=== PATIENT | male | born 1945 | race Caucasian/White ===

== ENCOUNTER → 2018-03-04 13:22 | Outpatient (CLI) | payer MEDICARE, BC, SELFPAY ==
[2018-03-04 14:23] LABS: INR 2.6 (1.0-3.5); Prothrombin Time 24.7 sec (9.3-10.8)
[2018-03-04 14:24] LABS: Hemoglobin A1C 6.7 % (4.5-6.2)
[2018-03-04 14:27] LABS: COMMENT (LAB VIEW ONLY) 91.38 mg/dL; Microalb ug/mg Crea 24.4 ug/mg Cr
== END ==
PROVIDERS: PCP Family Medicine; Visit Provider Family Medicine
DX: E11.40 Type 2 diabetes mellitus with diabetic neuropathy, unspecified (principal); E11.9 Type 2 diabetes mellitus without complications; I10 Essential (primary) hypertension; I48.91 Unspecified atrial fibrillation; Z79.01 Long term (current) use of anticoagulants
CPT/HCPCS: 36415; 82043; 82570; 83036; 85610

== ENCOUNTER → 2018-03-07 10:34 | Outpatient (CLI) | payer MEDICARE, BC, SELFPAY ==
[2018-03-07 11:51] LABS: Abs Immature Grans 0.01 k/cumm (0.0-0.09); Absolute Basophil Count 0.02 k/cumm (0.0-0.2); Absolute Eosinophil Count 0.07 k/cumm (0.0-0.7); Absolute Lymphocyte Count 0.96 k/cumm (1.2-3.4); Absolute Monocyte Count 0.78 k/cumm (0.11-0.7); Absolute Neutrophil Count 5.08 k/cumm (1.2-6.7); Basophils % 0.3; HCT 36.1 % (40.0-50.0); HGB 10.8 g/dL (13.5-17.5); Immature Grans % 0.1; Lymphocytes % 13.9; Mean Corp. HGB Concentration 29.9 g/dL (32.0-36.0); Mean Corpuscular Hemoglobin 26.3 pg (27.0-33.0); Mean Corpuscular Volume 87.8 fL (80-95); Mean Platelet Volume 9.4 fL (8.0-11.0); Monocytes % 11.3; Neutrophils % 73.4; Platelet Count 240 x1000/uL (130-400); RBC 4.11 m/cumm (4.50-6.00); RBC Distribution Width 18.2 % (11.8-14.1); White Blood Cell Count 6.92 k/cumm (4.4-10.8)
[2018-03-07 12:27] LABS: Anisocytosis 2+; Diff Comment RBC Morph Reviewed; Hypochromasia 1+; Macrocytosis 1+; Microcytosis 1+; Poikilocytes 1+; Polychromasia Present
== END ==
PROVIDERS: PCP Family Medicine; Visit Provider Family Medicine
DX: L03.115 Cellulitis of right lower limb (principal); T14.8XXA Other injury of unspecified body region, initial encounter
CPT/HCPCS: 36415; 85025

== ENCOUNTER 2018-03-25 08:00 | Outpatient (RCR) | payer MEDICARE, BC, SELFPAY ==
--- NOTE | 2018-02-28 13:59 | PTTR_ITS ---
DATE: 02/28/18 SUBJECTIVE: Don states that he continues to be very stiff through his ankle. OBJECTIVE: Manual therapy: (73556z9). With patient in supine, performed stretching of the right ankle into PF, DF, inversion, and eversion. Performed talocrural joint mobilizations and subtalar joint mobilizations. Therapeutic procedures (43720s7). * [X] See flow sheet: Patient performed a LE strengthening program, as per flow sheet. Patient was able to tolerate a slight increase in his program today , modifications made to reps are noted on flow sheet. Vitals were taken pre and post completion of ther ex program. Patient completed the remainder of his ther ex program via [facility]. * [X] Provided skilled manual cues to facilitate proper muscle recruitment and/or movement pattern. Neuro Re-education: Patient performed static and dynamic standing balance retraining activities. Direct treatment time: 30 minutes Total treatment time: 45 minutes
--- NOTE | 2018-03-04 08:15 | PTTR_ITS ---
DATE: 03/04/18 SUBJECTIVE: Patient was sleeping in his car in the parking lot after he arrived for his appointment, so appointment started about 15 minutes late. Patient notes that he got up early this morning and got to the dept early so sat in his truck and just dozed off. He reports that he is feeling well. Sugars were monitored this morning and were good via patient report. OBJECTIVE: Observation: His right leg was red posterior and anterior calf upon arrival to clinic. Patient states he does not have a fever, does not feel sick at all, and does not have any pain in the right leg. The right leg is not warm to touch compared to left leg. The redness subsided in a supine position once elevated and the leg was just a little pink in posterior calf by the end of the session. Patient educated to keep monitoring leg and to call the wound clinic or go to ED if it gets red again in case of infection. Took vitals pre and post session which were not of concern. See flow sheet. Manual therapy: (23189i7). Performed right ankle DF, PF, inversion, and eversion stretching. Grade 2/3 posterior and anterior talocrural joint mobilizations and distraction. Calcaneal rock mobilizations. Soft tissue stretching of the gastrocnemius. Therapeutic procedures (30147r5). [X] HEP review: Patient instructed to continue performing ankle pumps, ankle circles, and calf stretches at home. [X] See flow sheet: Continued progressing LE strengthening program [X] Provided skilled instruction in proper exercise performance: for proper body mechanics [X] Provided skilled manual cues to facilitate proper muscle recruitment and/or movement pattern: Neuro Re-education - (62065 x1): See flow sheet. Continued progressing static and dynamic balance activities adding the air ex pad for feet together and modified tandem stance and added color douglas pads for weight shifting in single leg stance. Tolerated session well without complaints. Recommended that he continue to monitor the redness of the LE. Slightly concerned in regards to possible cellulitis. He is to call his doctor if this gets worse or get to the ED. Patient was in agreement with this. Direct treatment time: 45 minutes Total treatment time: 45 minutes
--- NOTE | 2018-03-07 08:00 | PTTR_ITS ---
DATE: 03/07/18 SUBJECTIVE: Indicated he is doing okay. Bumped the marie of his right LE on Wednesday creating dime sized skin tear. Denies drainage from this region or from foot incision region. Is seeing his physician tomorrow. Does not feel legs are any redder than they had been at last session. Questions whether the doctor is going to tell him to use compressive hose. OBJECTIVE: Manual therapy: (76242m4). Mobilization of right ankle consisting of grade 2 post / anterior talocrural jt mobs, distraction and calcaneal rock mobs. Soft tissue stretching of gastroc for 3 reps x 30 seconds each and AAROM into dorsiflexion, plantarflexion, inversion and eversion. Therapeutic procedures (13039j1). * x See flow sheet: Focus on strengthening of bilateral LEs and hip stabilizers. * x Provided skilled instruction in proper exercise performance * x Provided skilled manual cues to facilitate proper muscle recruitment and/ or movement pattern * x Neuro Re-education - (13004 x1): See flow sheet for balance and proprioceptive activities performed while in clinic today. Given stand by guard of one with each of these tasks due to occasional LOB, mainly with dynamic activities such as 8 inch stool taps and color pad weight shifts utilizing SLS. Direct treatment time: 50 minutes Total treatment time: 50 minutes
--- NOTE | 2018-03-10 08:00 | NT_ITS ---
03/10/18 No showed for today's appt. Phoned patient's home and was informed he must have forgotten. Was not home when called, spoke to patient's . Will attempt to reschedule for tomorrow. Luz Liriano, [employer]
--- NOTE | 2018-03-11 08:00 | PTTR_ITS ---
DATE: 03/11/18 SUBJECTIVE: Don states that he did see his physician and was instructed to wear compressive stockings to help with the welling. States his physician did look at the bruise in front orf his R marie, but did not advise him to keep this covered, other than with the compression garment. Manual therapy: (18019t5). Did receive mobilization of the R ankle consisting of grade 2 anterior/posterior tibial talocrural joint mobs, distraction and calcaneal rocking mobs, soft tissue stretching of gastroc was performed x3 reps, x30 sec each as well as AAROM into dorsiflexion, plantar flexion, in/eversion. Therapeutic procedures (04152j3). * x See flow sheet: focus was on strengthening of bilateral LE's and hip stabilizers. * x Provided skilled instruction in proper exercise performance: * x Provided skilled manual cues to facilitate proper muscle recruitment and/ or movement pattern: * His BP was monitored pre and post session today and were found to be slightly elevated following NuStep activity. This did decrease after 3 mins of rest in seated position. (see flow sheet for readings today) Neuro Re-education - (10421 x1): See flow sheet for balance and proprioceptive activities performed in clinic. Continued stand by guard of 1 was given with each of these tasks without any notable loss of balance noted today. Direct treatment time: 50 mins Total treatment time: 50 mins SG/dl
--- NOTE | 2018-03-14 08:00 | PTTR_ITS ---
DATE: March 14, 2018 SUBJECTIVE: Don reports that he is utilizing compression socks which is helping with his redness in his LE's. He feels that he is making small gains however was hoping that his balance would improve faster. OBJECTIVE: Manual therapy: (60555g4). Subtalar and talocrural joint mobilizations Gr II/ III. P/AAROM performed throughout all planes to the right ankle. Therapeutic procedures (89679d7). Vitals monitored pre and post therex. * X See flow sheet: Global LE strength and cardiovascular endurance per flow sheet. * X Provided skilled instruction in proper exercise performance: promoting proper body mechanics and postural awareness * X Provided skilled manual cues to facilitate proper muscle recruitment and/ or movement pattern: Neuro Re-education - (08296 x1):Proprioceptive and balance activities with use of Airex and eyes open/closed. Also incorporated wobble board. Direct treatment time: 45 minutes Total treatment time: 45 minutes
--- NOTE | 2018-03-18 08:00 | PTTR_ITS ---
DATE: March 18, 2018 SUBJECTIVE: Don reports that he overall is holding up well. He reports that his doctor would like him to hold on the knee flexion and extension machine due to the pressure it places on his shins. He has some small wounds that are healing in this area and they just don't want it to interfere with the healing. OBJECTIVE: Manual therapy: (20974e3).Subtalar and talocrural joint mobilization dorsal and volar glides Gr III to the right ankle. P/AAROM throughout all planes. Soft tissue stretching to the gastroc. and hamstring. Therapeutic procedures (00867l6). * X See flow sheet: Global LE strength and stabilization modified program to include SSH and LAQ without resistance per request of MD. * X Provided skilled instruction in proper exercise performance: promoting body mechanics and postural awareness with increased core activation. * X Provided skilled manual cues to facilitate proper muscle recruitment and/ or movement pattern: Neuro Re-education - (48572 x1):Proprioceptive and balance activities incorporated utilizing Airex pad eyes open and closed. Unilateral stance continues to improve on the right. Will continue to advance within symptom allowance. Progressing level of activity with use of small hurdles. Direct treatment time: 45 minutes Total treatment time: 45 minutes
--- NOTE | 2018-03-21 08:00 | PTTR_ITS ---
DATE: 03/21/18 SUBJECTIVE: Don indicates he continues to feel that he is making steady gains. He is noting improved balance, improved stamina and is overall happy with his progress thus far, wishes the swelling would continue to reduce. Has been compliant with his compression garment. Manual therapy: N/C. Subtalar, talocrural joint mobilization of the R ankle, P /AAROM performed throughout all planes including gastroc and soleus stretching. Therapeutic procedures (32737f6). Global LE strength and stabilization via open/ close chain strengthening and conditioning. * x Provided skilled instruction in proper exercise performance: * x Provided skilled manual cues to facilitate proper muscle recruitment and/ or movement pattern: Neuro Re-education - (96460 x1): Proprioceptive, balancing activities per flow sheet encouraging unilateral stance, tandem, eyes open/eyes closed on Airex , dynamic gait tasks, sidestepping over small manuel. Vitals obtained pre and post and recorded on flow sheet. Direct treatment time: 30 mins Total treatment time: 40 mins, 10 mins of wellness. KW/dl
--- NOTE | 2018-03-25 08:00 | PN_ITS ---
DATE: March 25, 2018 REFERRING: Dr Lovely Vicente REFERRING PROVIDER DIAGNOSIS:: s/p revascularization of the right LE, s/p transmetatarsal amputation PHYSICAL THERAPY DIAGNOSIS: s/p revascularization of the right LE, S/p transmetatarsal amputation REPORTING PERIOD (for progress note and discharge note only): 02/15/18-03/25/18 SUBJECTIVE: Don is a 72 year old male referred for PT evaluation and treatment with focus on gait training, increased strength and flexibility of the lower extremity s/p revascularization and amputation of the metatarsals on the right LE. Don overall feels that he has made great progress over the course of the last month. He feels he has more endurance functional. His gait is much more stable and continues to gain balance over time. He is going to return to work on the 04 of April. Standardized Measures: * Lower Extremity Functional Scale Score (LEFS): 22% perceived disability rating OBJECTIVE: Gait: Reassessment of 6 minute walk performed. Ambulated 355 meters without assistive device. Minimal to no antalgia however does continue to be limited in his ankle mobility compensating with knee and hip strategies. ROM: Demonstrates 0 degrees of DF. 25 degrees of PF, Inversion to 20 degrees, Eversion 5 degrees. Demonstrates WNL hip and knee ROM. Strength: Demonstrates grossly 4+-5/5 LE strength at this time. Balance: Unilateral stance left 7 seconds, right 10+ seconds. Tandem 10+ seconds , Feet together 10+ seconds, Foot in instep of other foot 10+ seconds Special Tests (indicate): Sit to stand 30 seconds : 12 repetitions in comparison to 9 at IE, TUG 8 seconds in comparison to 12 seconds at IE. Treatment: Subtalar and talocrural joint mobilization to the right LE. Gr II/ III. P/AAROM and soft tissue stretching to the gastroc and hamstring. Completed reassessment followed by LE strength and proprioceptive/balance activities. Direct one on one 30 minutes. Total treatment 60 minutes with 30 minutes of wellness portion of the program. ASSESSMENT: Don at this time is making great progress towards short and detention goals. Balance and gait continue to improve. He continues to require skilled PT services to promote full return to previous level of function, advance his gait and continue to improve his dynamic balance for improved functional endurance and decreased fall risk. Patient's primary functional limitation is in the category of: Mobility - walking and moving around : [id number]-[CJ] Projected goal: Mobility - walking and moving around: [id number]-[CJ] STG: __4__ weeks. 1. Patient will demonstrate 5 degree increase in right ankle AROM or better all motions. (MET) 2. Patient will perform TUG in 10 seconds or less with no AD.(MET) 3. Patient will ambulate on even surfaces independently for 800ft or greater. ( MET) 4. Patient will maintain SLS for 3 seconds or greater on right LE.(MET) 5. Independent HEP.(MET) LTG: __8__ weeks. 1. Patient will report pain no more than 1/10 in right foot.(MET) 2. Patient will demonstrate 4+/5 strength of better hip flexors and abductors ( MET) 3. Patient will ambulate community distances on even and uneven surfaces independently with no antalgia.(MET) 4. Patient will negotiate 12 stairs independently with reciprocal gait pattern with use of 1 railing. (MET) 5. Patient will score 13 or greater on 30 second chair stand test.(Progressing towards) 6. Patient will maintain SLS for 6 seconds or greater on right leg. (MET) 7. Patient will score 30% impaired or less on LEFS. (MET) PLAN: Don will continue 1-2 times per week with focus on global LE strength, cardiovascular endurance and proprioceptive/balance training. Will plan to progress to independent self management program in 4 weeks.
== END 2018-03-25 23:59 | disposition home or self-care (01) ==
LOC: PT 08:00
PROVIDERS: PCP Family Medicine; Referring Provider Family Medicine; Visit Provider Family Medicine
DX: R26.81 Unsteadiness on feet (principal); R29.898 Other symptoms and signs involving the musculoskeletal system; Z89.431 Acquired absence of right foot; Z95.820 Peripheral vascular angioplasty status with implants and grafts
CPT/HCPCS: 97110; 97112; 97140; G8978

== ENCOUNTER 2018-04-19 01:58 | Outpatient (CLI) | payer MEDICARE, BC, SELFPAY ==
[2018-04-19 11:18] LABS: INR 2.1 (1.0-3.5); Prothrombin Time 19.6 sec (9.3-10.8)
== END 2018-04-19 02:18 ==
PROVIDERS: PCP Family Medicine; Visit Provider Family Medicine
DX: I48.91 Unspecified atrial fibrillation (principal); Z79.01 Long term (current) use of anticoagulants
CPT/HCPCS: 36415; 85610

== ENCOUNTER 2018-05-07 00:17 | Outpatient (CLI) | payer MEDICARE, BC, SELFPAY ==
[2018-05-07 09:58] LABS: Prothrombin Time 19.5 sec (9.3-10.8)
[2018-05-10 19:32] LABS: Hemoglobin A1C 6.6 % (4.5-6.2)
== END 2018-05-07 00:37 ==
PROVIDERS: PCP Family Medicine; Visit Provider Family Medicine
DX: I48.91 Unspecified atrial fibrillation (principal); Z79.01 Long term (current) use of anticoagulants; E11.65 Type 2 diabetes mellitus with hyperglycemia
CPT/HCPCS: 36415; 83036; 85610

== ENCOUNTER 2018-06-03 08:06 | Outpatient (CLI) | payer MEDICARE, BC, SELFPAY ==
[2018-06-03 12:37] LABS: Hemoglobin A1C 6.8 % (4.5-6.2)
[2018-06-03 12:50] LABS: INR 1.9 (1.0-3.5); Prothrombin Time 17.8 sec (9.3-10.8)
[2018-06-03 13:17] LABS: ALT 32 U/L (12-78); AST 36 U/L (15-37); Albumin 3.1 g/dL (3.4-5.0); Alkaline Phosphatase 82 U/L (46-116); Anion Gap 10.3 mmol/L (3-11); BUN 23 mg/dL (7-18); Bilirubin, Total 0.6 mg/dL (0.2-1.0); CO2 28.7 mmol/L (21.0-32.0); Calcium 8.3 mg/dL (8.5-10.1); Chloride 102 mmol/L (98-107); Cholesterol 70 mg/dL (50-200); Estimated GFR 54.26 (mL/min/1.73m2); Glucose 98 mg/dL (70-100); HDL Cholesterol 32 mg/dL (40-60); LDL CHOLESTEROL 29 mg/dL (<100); Potassium 4.5 mmol/L (3.5-5.1); Sodium 141 mmol/L (136-145); Total Protein 6.5 g/dL (6.4-8.2); Triglyceride 103 mg/dL (30-150)
== END 2018-06-03 08:26 ==
PROVIDERS: PCP Family Medicine; Visit Provider Family Medicine
DX: E11.65 Type 2 diabetes mellitus with hyperglycemia (principal); I10 Essential (primary) hypertension; D64.9 Anemia, unspecified; E78.5 Hyperlipidemia, unspecified; I25.5 Ischemic cardiomyopathy; G62.9 Polyneuropathy, unspecified; Z79.01 Long term (current) use of anticoagulants
CPT/HCPCS: 36415; 80053; 80061; 83721; 83036; 85610

== ENCOUNTER 2018-07-01 02:27 | Outpatient (CLI) | payer MEDICARE, BC, SELFPAY ==
[2018-07-01 07:39] LABS: Ferritin 33 ng/mL (8-388)
== END 2018-07-01 02:47 ==
PROVIDERS: PCP Family Medicine; Visit Provider Nurse Practitioner
DX: M25.50 Pain in unspecified joint (principal); I48.91 Unspecified atrial fibrillation; Z79.01 Long term (current) use of anticoagulants
CPT/HCPCS: 36415; 82728; 85610

== ENCOUNTER 2018-08-01 01:41 | Outpatient (CLI) | payer MEDICARE, BC, SELFPAY ==
[2018-08-01 11:52] LABS: INR 1.4 (0.9-1.1); Prothrombin Time 13.8 sec (9.3-11.0)
== END 2018-08-01 02:01 ==
PROVIDERS: PCP Family Medicine; Visit Provider Family Medicine
DX: I25.5 Ischemic cardiomyopathy (principal); Z79.01 Long term (current) use of anticoagulants
CPT/HCPCS: 36415; 85610

== ENCOUNTER 2018-08-08 02:32 | Outpatient (CLI) | payer MEDICARE, BC, SELFPAY ==
[2018-08-08 10:54] LABS: INR 1.4 (0.9-1.1); Prothrombin Time 14.5 sec (9.3-11.0)
== END 2018-08-08 02:52 ==
PROVIDERS: PCP Family Medicine; Visit Provider Family Medicine
DX: I25.10 Atherosclerotic heart disease of native coronary artery without angina pectoris (principal); Z79.01 Long term (current) use of anticoagulants
CPT/HCPCS: 36415; 85610

== ENCOUNTER 2018-08-18 08:49 | Outpatient (CLI) | payer MEDICARE, BC, SELFPAY ==
[2018-08-18 11:56] LABS: Hemoglobin A1C 7.3 % (4.5-6.2)
[2018-08-18 12:05] LABS: ALT 27 U/L (12-78); AST 22 U/L (15-37); Albumin 3.4 g/dL (3.4-5.0); Alkaline Phosphatase 78 U/L (46-116); Anion Gap 7.5 mmol/L (3-11); BUN 23 mg/dL (7-18); Bilirubin, Total 0.7 mg/dL (0.2-1.0); CO2 32.5 mmol/L (21.0-32.0); CREATININE 1.22 mg/dL (0.70-1.30); Calcium 8.6 mg/dL (8.5-10.1); Chloride 104 mmol/L (98-107); Cholesterol 79 mg/dL (50-200); Estimated GFR 58.39 (mL/min/1.73m2); Glucose 146 mg/dL (70-100); HDL Cholesterol 35 mg/dL (40-60); LDL CHOLESTEROL 27 mg/dL (<100); Magnesium 1.7 mg/dL (1.8-2.4); Potassium 4.3 mmol/L (3.5-5.1); Sodium 144 mmol/L (136-145); TSH (W/Ref FT4) 1.08 uIU/mL (0.358-3.74); Triglyceride 170 mg/dL (30-150)
== END 2018-08-18 09:09 ==
PROVIDERS: PCP Family Medicine; Visit Provider Family Medicine
DX: E89.0 Postprocedural hypothyroidism (principal); I10 Essential (primary) hypertension; I25.5 Ischemic cardiomyopathy; E11.9 Type 2 diabetes mellitus without complications
CPT/HCPCS: 36415; 80053; 80061; 83721; 83036; 83735; 84443

== ENCOUNTER 2018-08-29 02:19 | Outpatient (CLI) | payer MEDICARE, BC, SELFPAY ==
[2018-08-29 11:23] LABS: INR 1.9 (0.9-1.1); Prothrombin Time 19.2 sec (9.3-11.0)
== END 2018-08-29 02:39 ==
PROVIDERS: PCP Family Medicine; Visit Provider Family Medicine
DX: I25.5 Ischemic cardiomyopathy (principal); Z79.01 Long term (current) use of anticoagulants
CPT/HCPCS: 36415; 85610

== ENCOUNTER 2018-09-14 01:25 | Outpatient (CLI) | payer MEDICARE, BC, SELFPAY ==
[2018-09-14 11:16] LABS: INR 1.6 (0.9-1.1); Prothrombin Time 16.4 sec (9.3-11.0)
== END 2018-09-14 01:45 ==
PROVIDERS: PCP Family Medicine; Visit Provider Family Medicine
DX: I25.10 Atherosclerotic heart disease of native coronary artery without angina pectoris (principal); Z79.01 Long term (current) use of anticoagulants
CPT/HCPCS: 36415; 85610

== ENCOUNTER 2018-09-19 15:50 | Outpatient (CLI) | payer MEDICARE, BC, SELFPAY ==
[2018-09-19 16:32] LABS: INR 1.9 (0.9-1.1); Prothrombin Time 19.1 sec (9.3-11.0)
== END 2018-09-19 16:10 ==
PROVIDERS: PCP Family Medicine; Visit Provider Family Medicine
DX: I48.91 Unspecified atrial fibrillation (principal); Z79.01 Long term (current) use of anticoagulants
CPT/HCPCS: 36415; 85610

== ENCOUNTER 2018-09-27 01:30 | Outpatient (CLI) | payer MEDICARE, BC, SELFPAY ==
[2018-09-27 08:08] LABS: INR 2.3 (0.9-1.1); Prothrombin Time 23.5 sec (9.3-11.0)
[2018-09-27 08:21] LABS: Hemoglobin A1C 7.4 % (4.5-6.2)
== END 2018-09-27 01:50 ==
PROVIDERS: PCP Family Medicine; Visit Provider Family Medicine
DX: I48.91 Unspecified atrial fibrillation (principal); Z79.01 Long term (current) use of anticoagulants; E11.9 Type 2 diabetes mellitus without complications
CPT/HCPCS: 36415; 83036; 85610

== ENCOUNTER 2018-10-11 02:00 | Outpatient (CLI) | payer MEDICARE, BC, SELFPAY ==
[2018-10-11 07:44] LABS: INR 2.1 (0.9-1.1); Prothrombin Time 21.4 sec (9.3-11.0)
== END 2018-10-11 02:20 ==
PROVIDERS: PCP Family Medicine; Visit Provider Family Medicine
DX: I48.91 Unspecified atrial fibrillation (principal); Z79.01 Long term (current) use of anticoagulants
CPT/HCPCS: 36415; 85610

== ENCOUNTER 2018-11-02 01:07 | Outpatient (CLI) | payer MEDICARE, BC, SELFPAY ==
[2018-11-02 10:36] LABS: INR 1.8 (0.9-1.1); Prothrombin Time 18.5 sec (9.3-11.0)
== END 2018-11-02 01:27 ==
PROVIDERS: PCP Family Medicine; Visit Provider Family Medicine
DX: I48.91 Unspecified atrial fibrillation (principal); Z79.01 Long term (current) use of anticoagulants
CPT/HCPCS: 36415; 85610

== ENCOUNTER 2018-11-21 14:39 | Outpatient (CLI) | payer MEDICARE, BC, SELFPAY ==
[2018-11-21 15:13] LABS: Prothrombin Time 19.9 sec (9.3-11.0)
== END 2018-11-21 14:59 ==
PROVIDERS: PCP Family Medicine; Visit Provider Family Medicine
DX: I48.91 Unspecified atrial fibrillation (principal); Z79.01 Long term (current) use of anticoagulants
CPT/HCPCS: 36415; 85610

== ENCOUNTER 2018-12-08 02:16 | Outpatient (CLI) | payer MEDICARE, BC, SELFPAY | END 2018-12-08 02:36 | PROVIDERS: PCP Family Medicine; Visit Provider Family Medicine | DX: E11.9 Type 2 diabetes mellitus without complications (principal) | CPT/HCPCS: 36415; 83036 ==

== ENCOUNTER 2018-12-20 01:44 | Outpatient (CLI) | payer MEDICARE, BC, SELFPAY ==
[2018-12-20 11:09] LABS: Hemoglobin A1C 6.7 % (4.5-6.2)
[2018-12-20 11:14] LABS: Iron 64 ug/dL (50-175)
[2018-12-20 11:26] LABS: INR 1.8 (0.9-1.1); Prothrombin Time 17.8 sec (9.3-11.0)
[2018-12-20 11:36] LABS: Ferritin 42 ng/mL (8-388)
== END 2018-12-20 02:04 ==
PROVIDERS: PCP Family Medicine; Visit Provider Family Medicine
DX: E11.9 Type 2 diabetes mellitus without complications (principal); G25.81 Restless legs syndrome; Z79.01 Long term (current) use of anticoagulants; I48.91 Unspecified atrial fibrillation
CPT/HCPCS: 36415; 82728; 83036; 83540; 85610

== ENCOUNTER 2019-01-03 01:46 | Outpatient (CLI) | payer MEDICARE, BC, SELFPAY ==
[2019-01-03 07:46] LABS: INR 2.7 (0.9-1.1); Prothrombin Time 27.5 sec (9.3-11.0)
== END 2019-01-03 02:06 ==
PROVIDERS: PCP Family Medicine; Visit Provider Family Medicine
DX: I48.91 Unspecified atrial fibrillation (principal); Z79.01 Long term (current) use of anticoagulants
CPT/HCPCS: 36415; 85610

== ENCOUNTER 2019-01-30 01:40 | Outpatient (CLI) | payer MEDICARE, BC, SELFPAY ==
[2019-01-30 07:54] LABS: INR 1.8 (0.9-1.1); Prothrombin Time 18.4 sec (9.3-11.0)
== END 2019-01-30 02:00 ==
PROVIDERS: PCP Family Medicine; Visit Provider Family Medicine
DX: I48.91 Unspecified atrial fibrillation (principal); Z79.01 Long term (current) use of anticoagulants
CPT/HCPCS: 36415; 85610

== ENCOUNTER 2019-02-06 08:51 | Outpatient (CLI) | payer MEDICARE, BC, SELFPAY ==
[2019-02-06 09:36] LABS: Prothrombin Time 19.6 sec (9.3-11.0)
[2019-02-06 09:37] LABS: INR 1.9 (0.9-1.1)
== END 2019-02-06 09:11 ==
PROVIDERS: PCP Family Medicine; Visit Provider Family Medicine
DX: I48.91 Unspecified atrial fibrillation (principal); Z79.01 Long term (current) use of anticoagulants
CPT/HCPCS: 36415; 85610

== ENCOUNTER 2019-02-13 01:47 | Outpatient (CLI) | payer MEDICARE, BC, SELFPAY ==
[2019-02-13 08:12] LABS: INR 3.1 (0.9-1.1); Prothrombin Time 31.1 sec (9.3-11.0)
[2019-02-13 10:10] LABS: Ferritin 40 ng/mL (8-388)
== END 2019-02-13 02:07 ==
PROVIDERS: Nurse Practitioner; PCP Family Medicine; Visit Provider Family Medicine
DX: I48.91 Unspecified atrial fibrillation (principal); Z79.01 Long term (current) use of anticoagulants; M25.50 Pain in unspecified joint
CPT/HCPCS: 36415; 82728; 85610

== ENCOUNTER 2019-02-20 01:11 | Outpatient (CLI) | payer MEDICARE, BC, SELFPAY ==
[2019-02-20 10:55] LABS: Prothrombin Time 29.8 sec (9.3-11.0)
[2019-02-20 10:57] LABS: INR 2.9 (0.9-1.1)
== END 2019-02-20 01:31 ==
PROVIDERS: PCP Family Medicine; Visit Provider Family Medicine
DX: I48.91 Unspecified atrial fibrillation (principal); Z79.01 Long term (current) use of anticoagulants
CPT/HCPCS: 36415; 85610

== ENCOUNTER 2019-03-06 01:18 | Outpatient (CLI) | payer MEDICARE, BC, SELFPAY ==
[2019-03-06 07:36] LABS: INR 2.2 (0.9-1.1); Prothrombin Time 21.8 sec (9.3-11.0)
== END 2019-03-06 01:38 ==
PROVIDERS: PCP Family Medicine; Visit Provider Family Medicine
DX: I48.91 Unspecified atrial fibrillation (principal); Z79.01 Long term (current) use of anticoagulants
CPT/HCPCS: 36415; 85610

== ENCOUNTER 2019-03-31 03:49 | Outpatient (CLI) | payer MEDICARE, BC, SELFPAY ==
[2019-03-31 11:09] LABS: INR 2.3 (0.9-1.1); Prothrombin Time 22.9 sec (9.3-11.0)
[2019-03-31 15:02] LABS: Hemoglobin A1C 6.8 % (4.5-6.2)
== END 2019-03-31 04:09 ==
PROVIDERS: PCP Family Medicine; Visit Provider Family Medicine
DX: E11.9 Type 2 diabetes mellitus without complications (principal); I48.91 Unspecified atrial fibrillation; Z79.01 Long term (current) use of anticoagulants
CPT/HCPCS: 36415; 83036; 85610

== ENCOUNTER 2019-04-17 01:04 | Outpatient (CLI) | payer MEDICARE, BC, SELFPAY ==
[2019-04-17 12:17] LABS: INR 1.1 (0.9-1.1); Prothrombin Time 11.2 sec (9.3-11.0)
== END 2019-04-17 01:24 ==
LOC: LBO 01:04 → LOS 12:35
PROVIDERS: PCP Family Medicine; Visit Provider Family Medicine
DX: I48.91 Unspecified atrial fibrillation (principal); Z79.01 Long term (current) use of anticoagulants
CPT/HCPCS: 36415; 85610

== ENCOUNTER 2019-04-20 02:23 | Outpatient (CLI) | payer MEDICARE, BC, SELFPAY ==
[2019-04-20 07:56] LABS: INR 1.1 (0.9-1.1); Prothrombin Time 11.3 sec (9.3-11.0)
== END 2019-04-20 02:43 ==
PROVIDERS: PCP Family Medicine; Visit Provider Family Medicine
DX: I48.91 Unspecified atrial fibrillation (principal); Z79.01 Long term (current) use of anticoagulants
CPT/HCPCS: 36415; 85610

== ENCOUNTER 2019-04-24 02:34 | Outpatient (CLI) | payer MEDICARE, BC, SELFPAY ==
[2019-04-24 11:10] LABS: INR 2.1 (0.9-1.1); Prothrombin Time 20.6 sec (9.3-11.0)
== END 2019-04-24 02:54 ==
PROVIDERS: PCP Family Medicine; Visit Provider Family Medicine
DX: I48.91 Unspecified atrial fibrillation (principal); Z79.01 Long term (current) use of anticoagulants
CPT/HCPCS: 36415; 85610

== ENCOUNTER 2019-05-01 02:39 | Outpatient (CLI) | payer MEDICARE, BC, SELFPAY ==
[2019-05-01 08:11] LABS: INR 2.7 (0.9-1.1); Prothrombin Time 26.9 sec (9.3-11.0)
[2019-05-01 09:06] LABS: Hemoglobin A1C 6.8 % (4.5-6.2)
== END 2019-05-01 02:59 ==
PROVIDERS: PCP Family Medicine; Visit Provider Family Medicine
DX: E11.9 Type 2 diabetes mellitus without complications (principal); I48.91 Unspecified atrial fibrillation; Z79.01 Long term (current) use of anticoagulants
CPT/HCPCS: 36415; 83036; 85610

== ENCOUNTER 2019-05-08 05:42 | Outpatient (CLI) | payer MEDICARE, BC, SELFPAY ==
[2019-05-08 11:27] LABS: INR 3.1 (0.9-1.1); Prothrombin Time 30.5 sec (9.3-11.0)
== END 2019-05-08 06:02 ==
PROVIDERS: PCP Family Medicine; Visit Provider Family Medicine
DX: I48.91 Unspecified atrial fibrillation (principal); Z79.01 Long term (current) use of anticoagulants
CPT/HCPCS: 36415; 85610

== ENCOUNTER 2019-05-15 02:13 | Outpatient (CLI) | payer MEDICARE, BC, SELFPAY ==
[2019-05-15 11:09] LABS: INR 2.3 (0.9-1.1); Prothrombin Time 22.2 sec (9.3-11.0)
== END 2019-05-15 02:33 ==
PROVIDERS: PCP Family Medicine; Visit Provider Family Medicine
DX: I48.91 Unspecified atrial fibrillation (principal); Z79.01 Long term (current) use of anticoagulants
CPT/HCPCS: 36415; 85610

== ENCOUNTER 2019-05-29 01:44 | Outpatient (CLI) | payer MEDICARE, BC, SELFPAY ==
[2019-05-29 11:31] LABS: INR 1.9 (0.9-1.1); Prothrombin Time 19.1 sec (9.3-11.0)
== END 2019-05-29 02:04 ==
PROVIDERS: PCP Family Medicine; Visit Provider Family Medicine
DX: I48.91 Unspecified atrial fibrillation (principal); Z79.01 Long term (current) use of anticoagulants
CPT/HCPCS: 36415; 85610

== ENCOUNTER 2019-06-12 02:07 | Outpatient (CLI) | payer MEDICARE, BC, SELFPAY ==
[2019-06-12 12:21] LABS: INR 1.8 (0.9-1.1); Prothrombin Time 17.8 sec (9.3-11.0)
== END 2019-06-12 02:27 ==
PROVIDERS: PCP Family Medicine; Visit Provider Family Medicine
DX: I48.91 Unspecified atrial fibrillation (principal); Z79.01 Long term (current) use of anticoagulants
CPT/HCPCS: 36415; 85610

== ENCOUNTER 2019-06-19 03:16 | Outpatient (CLI) | payer MEDICARE, BC, SELFPAY ==
[2019-06-19 13:36] LABS: INR 2.1 (0.9-1.1); Prothrombin Time 20.3 sec (9.3-11.0)
== END 2019-06-19 03:36 ==
PROVIDERS: PCP Family Medicine; Visit Provider Family Medicine
DX: I48.91 Unspecified atrial fibrillation (principal); Z79.01 Long term (current) use of anticoagulants
CPT/HCPCS: 36415; 85610

== ENCOUNTER 2019-07-03 00:17 | Outpatient (CLI) | payer MEDICARE, BC, SELFPAY ==
[2019-07-03 11:40] LABS: Hemoglobin A1C 6.9 % (4.5-6.2)
[2019-07-03 12:32] LABS: INR 2.2 (0.9-1.1); Prothrombin Time 21.4 sec (9.3-11.0)
== END 2019-07-03 00:37 ==
PROVIDERS: PCP Family Medicine; Visit Provider Family Medicine
DX: E11.9 Type 2 diabetes mellitus without complications (principal); I48.91 Unspecified atrial fibrillation; Z79.01 Long term (current) use of anticoagulants
CPT/HCPCS: 36415; 83036; 85610

== ENCOUNTER 2019-07-07 00:49 | Outpatient (CLI) | payer MEDICARE, BC, SELFPAY ==
--- NOTE | 2019-07-25 08:31 | ZIOP_ITS ---
Date of service: 07/25/19 Time of Service: 08:31 ZIO Patch Bite Block Maker Note: This is a 2-week ZIO patch ordered for the indication of palpitations. ?Patient had a minimum heart rate of 21 bpm and a maximum heart rate of 174 bpm. ?The predominant underlying rhythm was sinus rhythm with intermittent bundle branch block. ?There were 4 episodes of ventricular tachycardia with the longest lasting 5 beats. ?There were 12 episodes of supraventricular tachycardia with the longest lasting 14 beats. ?There were 2 episodes of type II second-degree AV block with the longest lasting 10 seconds. ?There were rare isolated supraventricular ectopic beats ?There were occasional isolated ventricular ectopic beats. ?There were no episodes of atrial fibrillation or pauses greater than 3 seconds.
== END 2019-07-07 01:09 ==
PROVIDERS: PCP Family Medicine; Visit Provider Family Medicine
DX: R00.2 Palpitations (principal); I47.2 Ventricular tachycardia; I47.1 Supraventricular tachycardia; I44.1 Atrioventricular block, second degree
CPT/HCPCS: 0296T

== ENCOUNTER 2019-07-25 08:31 | Outpatient (CLI) | payer MEDICARE, BC, SELFPAY | END 2019-07-25 08:51 | PROVIDERS: PCP Family Medicine; Referring Provider Family Medicine; Visit Provider Internal Medicine Cardiovascular Disease | DX: R00.2 Palpitations (principal); I47.2 Ventricular tachycardia; I47.1 Supraventricular tachycardia; I44.1 Atrioventricular block, second degree | CPT/HCPCS: 0298T ==

== ENCOUNTER 2019-07-31 03:07 | Outpatient (CLI) | payer MEDICARE, BC, SELFPAY ==
[2019-07-31 10:59] LABS: INR 2.6 (0.9-1.1); Prothrombin Time 25.7 sec (9.3-11.0)
== END 2019-07-31 03:27 ==
PROVIDERS: PCP Family Medicine; Visit Provider Family Medicine
DX: I48.91 Unspecified atrial fibrillation (principal); Z79.01 Long term (current) use of anticoagulants
CPT/HCPCS: 36415; 83036; 85610

== ENCOUNTER 2019-08-11 14:40 | Outpatient (CLI) | payer MEDICARE, BC, SELFPAY ==
[2019-08-12 16:52] LABS: Campylobacter PCR Negative (Negative); Salmonella PCR Negative (Negative); Shiga Toxin PCR Negative (Negative); Shigella/Enteroinvasive Ecoli Negative (Negative)
== END 2019-08-11 15:00 ==
LOC: LBO 14:42 → LBN 15:13
PROVIDERS: PCP Family Medicine; Visit Provider Family Medicine
DX: R19.7 Diarrhea, unspecified (principal)
CPT/HCPCS: 87329; 87505; 87324

== ENCOUNTER 2019-08-14 05:35 | Outpatient (CLI) | payer MEDICARE, BC, SELFPAY ==
[2019-08-14 12:15] LABS: INR 2.2 (0.9-1.1)
== END 2019-08-14 05:55 ==
PROVIDERS: PCP Family Medicine; Visit Provider Family Medicine
DX: I48.91 Unspecified atrial fibrillation (principal); Z79.01 Long term (current) use of anticoagulants
CPT/HCPCS: 36415; 85610

== ENCOUNTER 2019-09-11 03:34 | Outpatient (CLI) | payer MEDICARE, BC, SELFPAY ==
[2019-09-11 10:59] LABS: Prothrombin Time 20.1 sec (9.3-11.0)
== END 2019-09-11 03:54 ==
PROVIDERS: PCP Family Medicine; Visit Provider Family Medicine
DX: I48.91 Unspecified atrial fibrillation (principal); Z79.01 Long term (current) use of anticoagulants
CPT/HCPCS: 36415; 85610

== ENCOUNTER 2019-09-28 06:17 | Outpatient (CLI) | payer MEDICARE, BC, SELFPAY ==
[2019-09-28 08:24] LABS: INR 2.2 (0.9-1.1); Prothrombin Time 21.3 sec (9.3-11.0)
[2019-09-28 08:58] LABS: Hemoglobin A1C 7.4 % (3.8-5.6)
== END 2019-09-28 06:37 ==
PROVIDERS: PCP Family Medicine; Visit Provider Family Medicine
DX: E11.9 Type 2 diabetes mellitus without complications (principal); I48.91 Unspecified atrial fibrillation; Z79.01 Long term (current) use of anticoagulants
CPT/HCPCS: 36415; 83036; 85610

== ENCOUNTER 2019-12-21 03:36 | Outpatient (CLI) | payer MEDICARE, BC, SELFPAY ==
[2019-12-21 08:52] LABS: ALT 28 U/L (16-63); AST 15 U/L (15-37); Albumin 3.4 g/dL (3.4-5.0); Alkaline Phosphatase 80 U/L (46-116); Anion Gap 3.5 mmol/L (3-11); BUN 27 mg/dL (7-18); Bilirubin, Total 0.6 mg/dL (0.2-1.0); CO2 30.5 mmol/L (21.0-32.0); CREATININE 1.35 mg/dL (0.70-1.30); Calcium 8.5 mg/dL (8.5-10.1); Calculated LDL 9 mg/dL (<100); Chloride 105 mmol/L (98-107); Cholesterol 81 mg/dL (<200); Estimated GFR 51.81 (mL/min/1.73m2); Glucose 177 mg/dL (74-106); HDL Cholesterol 29 mg/dL (40-60); Potassium 4.7 mmol/L (3.5-5.1); Sodium 139 mmol/L (136-145); TSH (W/Ref FT4) 1.28 uIU/mL (0.36-3.74); Total Protein 6.9 g/dL (6.4-8.2); Triglyceride 215 mg/dL (<150)
[2019-12-21 09:06] LABS: HCT 39.5 % (40.0-50.0); HGB 13.3 g/dL (13.5-17.5); Mean Corp. HGB Concentration 33.7 g/dL (32.0-36.0); Mean Corpuscular Hemoglobin 30.1 pg (27.0-33.0); Mean Corpuscular Volume 89.4 fL (80-95); Mean Platelet Volume 9.2 fL (8.0-11.0); Platelet Count 213 x1000/uL (130-400); RBC 4.42 m/cumm (4.50-6.00); RBC Distribution Width 14.8 % (11.8-14.1); White Blood Cell Count 5.75 k/cumm (4.4-10.8)
[2019-12-21 09:08] LABS: Prothrombin Time 21.2 sec (9.3-11.0)
[2019-12-21 09:11] LABS: INR 2.1 (0.9-1.1)
[2019-12-21 09:15] LABS: COMMENT (LAB VIEW ONLY) 114.38 mg/dL; Microalb ug/mg Crea 30.7 ug/mg Cr
[2019-12-21 09:17] LABS: Iron 50 ug/dL (65-175)
[2019-12-21 19:05] LABS: Hemoglobin A1C 7.1 % (3.8-5.6)
== END 2019-12-21 03:56 ==
PROVIDERS: PCP Family Medicine; Visit Provider Family Medicine
DX: D64.9 Anemia, unspecified (principal); E11.9 Type 2 diabetes mellitus without complications; E89.0 Postprocedural hypothyroidism; I48.91 Unspecified atrial fibrillation; Z79.01 Long term (current) use of anticoagulants
CPT/HCPCS: 36415; 80053; 80061; 85027; 82043; 82570; 83036; 83540; 84443; 85610

== ENCOUNTER 2020-01-01 04:27 | Outpatient (CLI) | payer MEDICARE, BC, SELFPAY ==
[2020-01-02 10:51] LABS: PSA, Screening 2.1 ng/mL (0.0-6.5)
== END 2020-01-01 04:47 ==
PROVIDERS: PCP Family Medicine; Visit Provider Urology
DX: N40.0 Benign prostatic hyperplasia without lower urinary tract symptoms (principal); Z12.5 Encounter for screening for malignant neoplasm of prostate
CPT/HCPCS: 36415; 84153; 83036; 85610

== ENCOUNTER 2020-01-19 01:35 | Outpatient (CLI) | payer MEDICARE, BC, SELFPAY ==
[2020-01-19 13:23] LABS: INR 2.3 (0.9-1.1); Prothrombin Time 22.7 sec (9.3-11.0)
== END 2020-01-19 01:55 ==
PROVIDERS: PCP Family Medicine; Visit Provider Family Medicine
DX: I48.91 Unspecified atrial fibrillation (principal); Z79.01 Long term (current) use of anticoagulants
CPT/HCPCS: 36415; 85610

== ENCOUNTER 2020-02-15 01:42 | Outpatient (CLI) | payer MEDICARE, BC, SELFPAY ==
[2020-02-15 07:50] LABS: INR 2.3 (0.9-1.1); Prothrombin Time 22.9 sec (9.3-11.0)
== END 2020-02-15 02:02 ==
PROVIDERS: PCP Family Medicine; Visit Provider Family Medicine
DX: Z79.01 Long term (current) use of anticoagulants (principal); I48.91 Unspecified atrial fibrillation
CPT/HCPCS: 36415; 85610

== ENCOUNTER 2020-03-08 04:41 | Outpatient (CLI) | payer MEDICARE, BC, SELFPAY ==
[2020-03-08 08:23] LABS: INR 2.3 (0.9-1.1); Prothrombin Time 22.6 sec (9.3-11.0)
== END 2020-03-08 05:01 ==
PROVIDERS: PCP Family Medicine; Visit Provider Family Medicine
DX: I48.91 Unspecified atrial fibrillation (principal); Z79.01 Long term (current) use of anticoagulants
CPT/HCPCS: 36415; 85610

== ENCOUNTER 2020-04-04 03:08 | Outpatient (CLI) | payer MEDICARE, BC, SELFPAY ==
[2020-04-04 09:50] LABS: INR 1.7 (0.9-1.1); Prothrombin Time 16.7 sec (9.3-11.0)
[2020-04-04 10:16] LABS: Ferritin 62 ng/mL (26-388)
== END 2020-04-04 03:28 ==
PROVIDERS: Nurse Practitioner; PCP Family Medicine; Visit Provider Family Medicine
DX: I48.91 Unspecified atrial fibrillation (principal); Z79.01 Long term (current) use of anticoagulants; M25.569 Pain in unspecified knee
CPT/HCPCS: 36415; 82728; 85610

== ENCOUNTER 2020-04-11 04:14 | Outpatient (CLI) | payer MEDICARE, BC, SELFPAY ==
[2020-04-11 08:47] LABS: INR 1.8 (0.9-1.1)
== END 2020-04-11 04:34 ==
PROVIDERS: PCP Family Medicine; Visit Provider Family Medicine
DX: I48.91 Unspecified atrial fibrillation (principal); Z79.01 Long term (current) use of anticoagulants
CPT/HCPCS: 36415; 85610

== ENCOUNTER 2020-04-18 04:40 | Outpatient (CLI) | payer MEDICARE, BC, SELFPAY ==
[2020-04-18 07:45] LABS: INR 1.7 (0.9-1.1); Prothrombin Time 16.6 sec (9.3-11.0)
[2020-04-18 08:15] LABS: Hemoglobin A1C 7.1 % (<5.7)
[2020-04-18 08:35] LABS: ALT 27 U/L (16-63); AST 16 U/L (15-37); Albumin 3.6 g/dL (3.4-5.0); Alkaline Phosphatase 90 U/L (46-116); BUN 28 mg/dL (7-18); Bilirubin, Total 0.6 mg/dL (0.2-1.0); CREATININE 1.36 mg/dL (0.70-1.30); Calcium 8.9 mg/dL (8.5-10.1); Chloride 103 mmol/L (98-107); Estimated GFR 51.22 (mL/min/1.73m2); Glucose 217 mg/dL (74-106); Potassium 4.7 mmol/L (3.5-5.1); Sodium 140 mmol/L (136-145); Total Protein 6.8 g/dL (6.4-8.2)
== END 2020-04-18 05:00 ==
PROVIDERS: PCP Family Medicine; Visit Provider Family Medicine
DX: E11.65 Type 2 diabetes mellitus with hyperglycemia (principal); I10 Essential (primary) hypertension; I48.91 Unspecified atrial fibrillation; Z79.01 Long term (current) use of anticoagulants
CPT/HCPCS: 36415; 80053; 83036; 85610

== ENCOUNTER 2020-04-25 05:04 | Outpatient (CLI) | payer MEDICARE, BC, SELFPAY ==
[2020-04-25 07:30] LABS: INR 2.1 (0.9-1.1); Prothrombin Time 21.1 sec (9.3-11.0)
== END 2020-04-25 05:24 ==
PROVIDERS: PCP Family Medicine; Visit Provider Family Medicine
DX: I48.91 Unspecified atrial fibrillation (principal); Z79.01 Long term (current) use of anticoagulants
CPT/HCPCS: 36415; 85610

== ENCOUNTER 2020-05-23 02:24 | Outpatient (CLI) | payer MEDICARE, BC, SELFPAY ==
[2020-05-23 10:00] LABS: INR 2.2 (0.9-1.1); Prothrombin Time 22.1 sec (9.3-11.0)
== END 2020-05-23 02:44 ==
PROVIDERS: PCP Family Medicine; Visit Provider Family Medicine
DX: I48.91 Unspecified atrial fibrillation (principal); Z79.01 Long term (current) use of anticoagulants
CPT/HCPCS: 36415; 85610

== ENCOUNTER 2020-06-11 04:13 | Outpatient (CLI) | payer MEDICARE, BC, SELFPAY ==
[2020-06-14 21:19] LABS: Patient Race White; SARS-CoV-2 RNA Undetected (Undetected); SARS-CoV-2 Specimen Source Nasal
== END 2020-06-11 04:33 ==
PROVIDERS: PCP Family Medicine; Visit Provider Family Medicine
DX: Z11.59 Encounter for screening for other viral diseases (principal)
CPT/HCPCS: U0003

== ENCOUNTER 2020-06-19 02:23 | Outpatient (CLI) | payer MEDICARE, BC, SELFPAY ==
[2020-06-19 07:45] LABS: INR 1.6 (0.9-1.1); Prothrombin Time 15.8 sec (9.3-11.0)
== END 2020-06-19 02:43 ==
PROVIDERS: PCP Family Medicine; Visit Provider Family Medicine
DX: I48.91 Unspecified atrial fibrillation (principal); Z79.01 Long term (current) use of anticoagulants
CPT/HCPCS: 36415; 80053; 80061; 83036; 85610

== ENCOUNTER 2020-06-28 01:29 | Outpatient (CLI) | payer MEDICARE, BC, SELFPAY ==
[2020-06-28 12:37] LABS: Prothrombin Time 21.2 sec (9.3-11.0)
[2020-06-28 12:51] LABS: INR 2.1 (0.9-1.1)
== END 2020-06-28 01:49 ==
PROVIDERS: PCP Family Medicine; Visit Provider Family Medicine
DX: I48.91 Unspecified atrial fibrillation (principal); Z79.01 Long term (current) use of anticoagulants
CPT/HCPCS: 36415; 85610

== ENCOUNTER 2020-07-08 03:34 | Outpatient (CLI) | payer MEDICARE, BC, SELFPAY ==
[2020-07-08 08:07] LABS: INR 2.2 (0.9-1.1); Prothrombin Time 22.1 sec (9.3-11.0)
[2020-07-08 08:14] LABS: Hemoglobin A1C 7.4 % (<5.7)
[2020-07-08 09:03] LABS: ALT 29 U/L (16-63); AST 18 U/L (15-37); Albumin 3.7 g/dL (3.4-5.0); Alkaline Phosphatase 66 U/L (46-116); Anion Gap 6.2 mmol/L (3-11); BUN 22 mg/dL (7-18); Bilirubin, Total 0.7 mg/dL (0.2-1.0); CO2 31.8 mmol/L (21.0-32.0); CREATININE 1.24 mg/dL (0.70-1.30); Calcium 8.3 mg/dL (8.5-10.1); Calculated LDL 36 mg/dL (<100); Chloride 105 mmol/L (98-107); Cholesterol 101 mg/dL (<200); Estimated GFR 56.99 (mL/min/1.73m2); Glucose 173 mg/dL (74-106); HDL Cholesterol 31 mg/dL (40-60); Sodium 143 mmol/L (136-145); Total Protein 6.8 g/dL (6.4-8.2); Triglyceride 174 mg/dL (<150)
== END 2020-07-08 03:54 ==
PROVIDERS: PCP Family Medicine; Visit Provider Family Medicine
DX: E11.65 Type 2 diabetes mellitus with hyperglycemia (principal); I48.91 Unspecified atrial fibrillation; Z79.01 Long term (current) use of anticoagulants
CPT/HCPCS: 36415; 80053; 80061; 83036; 85610

== ENCOUNTER 2020-08-05 02:34 | Outpatient (CLI) | payer MEDICARE, BC, SELFPAY ==
[2020-08-05 07:35] LABS: INR 1.9 (0.9-1.1); Prothrombin Time 19.1 sec (9.3-11.0)
== END 2020-08-05 02:54 ==
PROVIDERS: PCP Family Medicine; Visit Provider Family Medicine
DX: I48.91 Unspecified atrial fibrillation (principal); Z79.01 Long term (current) use of anticoagulants
CPT/HCPCS: 36415; 85610

== ENCOUNTER 2020-08-08 10:02 | Outpatient (CLI) | payer MEDICARE, BC, SELFPAY ==
--- NOTE | 2020-08-08 09:15 | DI.RAD_ITS ---
EXAM: XR HAND LT COMPLETE CLINICAL HISTORY: L hand pain TECHNIQUE: COMPARISON: CR LEFT MIDDLE FINGER from 12/25/2008 FINDINGS: Three views were obtained. There is narrowing of the cartilaginous joint spaces of the IP joints and to a lesser degree the joints of carpus. Mild hypertrophic marginal osteophyte formation noted at m ultiple sites involving IP joints and carpus. Findings as described are consistent with degenerative changes. No additional significant findings IMPRESSION: RADIATION DOSE DELIVERED: Total DLP
== END 2020-08-08 10:22 ==
PROVIDERS: PCP Family Medicine; Referring Provider Family Medicine; Visit Provider Physician Assistant
DX: M19.042 Primary osteoarthritis, left hand (principal); G56.02 Carpal tunnel syndrome, left upper limb; E11.59 Type 2 diabetes mellitus with other circulatory complications
CPT/HCPCS: 99214; 99215; 73130

== ENCOUNTER → 2020-08-15 13:57 | Outpatient (BNVA) | payer MEDICARE, BC, SELFPAY | PROVIDERS: PCP Family Medicine; Referring Provider Student in an Organized Health Care Education/Training Program; Visit Provider Nurse Practitioner Adult Health | DX: G56.02 Carpal tunnel syndrome, left upper limb (principal); E11.42 Type 2 diabetes mellitus with diabetic polyneuropathy; I10 Essential (primary) hypertension | CPT/HCPCS: 95909; 99203; 99215; G2212 ==

== ENCOUNTER 2020-09-02 03:22 | Outpatient (CLI) | payer MEDICARE, BC, SELFPAY ==
[2020-09-02 07:54] LABS: INR 2.3 (0.9-1.1); Prothrombin Time 22.9 sec (9.3-11.0)
== END 2020-09-02 03:23 | disposition home or self-care (01) ==
LOC: LBO 03:22
PROVIDERS: PCP Family Medicine; Visit Provider Family Medicine
DX: I48.91 Unspecified atrial fibrillation (principal); Z79.01 Long term (current) use of anticoagulants
CPT/HCPCS: 36415; 85610

== ENCOUNTER 2020-09-30 04:15 | Outpatient (CLI) | payer MEDICARE, BC, SELFPAY ==
[2020-09-30 07:34] LABS: INR 1.7 (0.9-1.1); Prothrombin Time 17.2 sec (9.3-11.0)
== END 2020-09-30 04:16 | disposition home or self-care (01) ==
PROVIDERS: PCP Family Medicine; Visit Provider Family Medicine
DX: I25.10 Atherosclerotic heart disease of native coronary artery without angina pectoris (principal); Z79.01 Long term (current) use of anticoagulants
CPT/HCPCS: 36415; 85610

== ENCOUNTER → 2020-10-03 09:10 | Outpatient (BNVA) | payer MEDICARE, BC, SELFPAY | PROVIDERS: PCP Family Medicine; Referring Provider Family Medicine; Visit Provider Student in an Organized Health Care Education/Training Program | DX: M19.042 Primary osteoarthritis, left hand (principal); G56.02 Carpal tunnel syndrome, left upper limb | CPT/HCPCS: 99213 ==

== ENCOUNTER 2020-10-07 03:20 | Outpatient (CLI) | payer MEDICARE, BC, SELFPAY ==
[2020-10-07 12:44] LABS: INR 1.9 (0.9-1.1); Prothrombin Time 18.4 sec (9.3-11.0)
== END 2020-10-07 03:21 | disposition home or self-care (01) ==
LOC: LBO 03:20
PROVIDERS: PCP Family Medicine; Visit Provider Family Medicine
DX: I48.91 Unspecified atrial fibrillation (principal); I25.10 Atherosclerotic heart disease of native coronary artery without angina pectoris; Z79.01 Long term (current) use of anticoagulants
CPT/HCPCS: 36415; 85610

== ENCOUNTER 2020-10-25 02:05 | Outpatient (CLI) | payer MEDICARE, BC, SELFPAY ==
[2020-10-25 07:52] LABS: Hemoglobin A1C 7.5 % (<5.7); INR 1.9 (0.9-1.1); Prothrombin Time 18.8 sec (9.3-11.0)
== END 2020-10-25 02:06 | disposition home or self-care (01) ==
LOC: LBO 02:05
PROVIDERS: PCP Family Medicine; Visit Provider Family Medicine
DX: E11.9 Type 2 diabetes mellitus without complications (principal); I48.91 Unspecified atrial fibrillation; Z79.01 Long term (current) use of anticoagulants
CPT/HCPCS: 36415; 83036; 85610

== ENCOUNTER 2020-11-22 02:25 | Outpatient (CLI) | payer MEDICARE, BC, SELFPAY ==
[2020-11-22 07:33] LABS: INR 1.8 (0.9-1.1); Prothrombin Time 17.7 sec (9.3-11.0)
== END 2020-11-22 02:26 | disposition home or self-care (01) ==
LOC: LBO 02:25
PROVIDERS: PCP Family Medicine; Visit Provider Family Medicine
DX: E11.9 Type 2 diabetes mellitus without complications (principal); I25.10 Atherosclerotic heart disease of native coronary artery without angina pectoris; Z79.01 Long term (current) use of anticoagulants
CPT/HCPCS: 36415; 83036; 85610

== ENCOUNTER 2020-12-20 02:15 | Outpatient (CLI) | payer MEDICARE, BC, SELFPAY ==
[2020-12-20 07:39] LABS: INR 1.7 (0.9-1.1); Prothrombin Time 16.6 sec (9.3-11.0)
== END 2020-12-20 02:16 | disposition home or self-care (01) ==
LOC: LBO 02:16
PROVIDERS: PCP Family Medicine; Visit Provider Family Medicine
DX: I48.91 Unspecified atrial fibrillation (principal); Z79.01 Long term (current) use of anticoagulants
CPT/HCPCS: 36415; 85610

== ENCOUNTER 2020-12-27 01:09 | Outpatient (CLI) | payer MEDICARE, BC, SELFPAY ==
[2020-12-27 08:40] LABS: INR 2.5 (0.9-1.1); Prothrombin Time 24.7 sec (9.3-11.0)
== END 2020-12-27 01:10 | disposition home or self-care (01) ==
LOC: LBO 01:09
PROVIDERS: PCP Family Medicine; Visit Provider Family Medicine
DX: I48.91 Unspecified atrial fibrillation (principal); Z79.01 Long term (current) use of anticoagulants
CPT/HCPCS: 36415; 85610

== ENCOUNTER 2021-01-03 03:53 | Outpatient (CLI) | payer MEDICARE, BC, SELFPAY ==
[2021-01-03 07:43] LABS: INR 1.6 (0.9-1.1); Prothrombin Time 16.4 sec (9.3-11.0)
== END 2021-01-03 03:54 | disposition home or self-care (01) ==
PROVIDERS: PCP Family Medicine; Visit Provider Family Medicine
DX: I48.91 Unspecified atrial fibrillation (principal); Z79.01 Long term (current) use of anticoagulants
CPT/HCPCS: 36415; 85610

== ENCOUNTER 2021-01-17 02:38 | Outpatient (CLI) | payer MEDICARE, BC, SELFPAY ==
[2021-01-17 08:14] LABS: INR 2.8 (0.9-1.1); Prothrombin Time 27.4 sec (9.3-11.0)
[2021-01-17 17:49] LABS: PSA, Screening 2.9 ng/mL (0.0-6.5)
== END 2021-01-17 02:39 | disposition home or self-care (01) ==
LOC: LBO 02:38
PROVIDERS: Urology; PCP Family Medicine; Visit Provider Family Medicine
DX: Z12.5 Encounter for screening for malignant neoplasm of prostate (principal); Z79.01 Long term (current) use of anticoagulants; I48.91 Unspecified atrial fibrillation
CPT/HCPCS: 36415; 84153; 85610

== ENCOUNTER 2021-01-31 01:53 | Outpatient (CLI) | payer MEDICARE, BC, SELFPAY ==
[2021-01-31 07:50] LABS: INR 2.7 (0.9-1.1); Prothrombin Time 26.8 sec (9.3-11.0)
== END 2021-01-31 01:54 | disposition home or self-care (01) ==
LOC: LBO 01:53
PROVIDERS: PCP Family Medicine; Visit Provider Family Medicine
DX: I48.91 Unspecified atrial fibrillation (principal); Z79.01 Long term (current) use of anticoagulants
CPT/HCPCS: 36415; 85610

== ENCOUNTER 2021-03-03 08:07 | Outpatient (CLI) | payer MEDICARE, BC, SELFPAY ==
[2021-03-03 12:18] LABS: Prothrombin Time 29.3 sec (9.3-11.0)
== END 2021-03-03 08:08 | disposition home or self-care (01) ==
LOC: LBO 08:08
PROVIDERS: PCP Family Medicine; Visit Provider Family Medicine
DX: I48.91 Unspecified atrial fibrillation (principal); Z79.01 Long term (current) use of anticoagulants
CPT/HCPCS: 36415; 85610

== ENCOUNTER 2021-03-10 03:16 | Outpatient (CLI) | payer MEDICARE, BC, SELFPAY ==
[2021-03-10 07:39] LABS: INR 3.3 (0.9-1.1); Prothrombin Time 31.9 sec (9.3-11.0)
== END 2021-03-10 03:17 | disposition home or self-care (01) ==
LOC: LBO 03:16
PROVIDERS: PCP Family Medicine; Visit Provider Family Medicine
DX: I48.91 Unspecified atrial fibrillation (principal); Z79.01 Long term (current) use of anticoagulants
CPT/HCPCS: 36415; 85610

== ENCOUNTER 2021-03-17 02:52 | Outpatient (CLI) | payer MEDICARE, BC, SELFPAY ==
[2021-03-17 07:39] LABS: INR 1.5 (0.9-1.1)
[2021-03-17 07:52] LABS: Hemoglobin A1C 7.8 % (<5.7)
[2021-03-17 08:26] LABS: COMMENT (LAB VIEW ONLY) 70.11 mg/dL; Microalb ug/mg Crea 48.2 ug/mg Cr
== END 2021-03-17 02:53 | disposition home or self-care (01) ==
LOC: LBO 02:52
PROVIDERS: PCP Family Medicine; Visit Provider Family Medicine
DX: E11.9 Type 2 diabetes mellitus without complications (principal); I48.91 Unspecified atrial fibrillation; Z79.01 Long term (current) use of anticoagulants
CPT/HCPCS: 36415; 82043; 82570; 83036; 85610

== ENCOUNTER 2021-03-20 13:02 | Emergency (ER) | payer MEDICARE, BC, SELFPAY ==
[2021-03-20] VITALS (29 sets, daily range): BP systolic 154–200; BP diastolic 61–90; PULSE 65–84; RESP 14–29; TEMP 36.5; O2SAT 93–99
--- NOTE | 2021-03-20 13:00 | RT.EKG_ITS ---
APPROVED REPORT Exam: Resting ECG Reason for Exam: dizzy and weak Patient Location: E HR:70 bpm ECG Measurements Heart Rate 70 AXIS IL 186 P 41 QRSd 107 QRS -57 QT 402 T 123 QTc 434 Conclusion Sinus rhythm...normal P axis, V-rate 60- 99 Ventricular premature complex...V complex w/ short R-R interval Inferior infarct, old...Q >35mS, II III aVF Anterolateral infarct, age indeterminate...Q >35mS, flat/neg T, V3-V6,I,aVL. Sinus. PVCs. No STEMI. I have reviewed and interpreted ECG and agree with software generated interpretation.
--- NOTE | 2021-03-20 13:15 | DI.CT_ITS ---
Exam(s) CT BRAIN NECK CTA EXAM: CT BRAIN NECK CTA CLINICAL HISTORY: dizziness, blurry vision, r/o acute cva. TECHNIQUE: Imaging Protocol: Axial CT angiography was performed with multi-slice acquisition and mu lti-planar and/or 3D reconstructions. CONTRAST MATERIAL: Intravenous: Omnipaque 350 Contrast volume:structured data in ml COMPARISON: CT HEAD WITHOUT CONTRAST from 08/03/2017 CT HEAD WITHOUT CONTRAST from 08/03/2017 CT PELVIC/LOWER ABD WITH CON(P) from 08/03/2017 FINDINGS: CTA Neck W: Aortic arch anatomy: The aortic arch anatomy is conventional. Sternotomy wires noted. Anterior circulation: Both common carotid arteries ascend with normal luminal diameters. There is no stenosis at their sorin gins. Distally there is mild calcified plaque on the posterior wall of the right carotid bifurcation proximal right internal carotid artery but with less than 10 percent stenosis at this level. Just a samuel this level there is additional calcified plaque on the medial wall of the proximal right ICA, ap proximately 20 percent stenosis. Above this level the right ICA in the neck is nicely patent and not tortuous. The left common carotid artery ascends with normal luminal diameter. There is both calcified and non calcified plaque in left carotid bifurcation and proximal left internal carotid artery. Approximatel y 20 percent stenosis. Some calcification along the medial wall is seen in the left ICA slightly abo ve this with approximately 10-15 percent stenosis. Above this level the left internal carotid artery is patent and non tortuous in the upper neck. Posterior circulation: Both vertebral arteries arising conventional fashion off of the subclavian arteries with no evidence of significant stenosis at their origins nor stenosis in the subclavian arteries proximal to the vert ebral artery takeoff points. Left vertebral artery is dominant and ascends with a patent luminal diameter of 5 millimeters. The r ight vertebral artery is slightly smaller diameter and also patent. At the skull base both vertebral arteries contribute to the formation of the basilar artery. The right vertebral artery at the skull base becomes a thinner vessel. CTA Brain W: Anterior circulation: Both internal carotid arteries are patent in the skull base-carotid canals. They are peripherally ca lcified within the cavernous sinuses but otherwise patent. Both psoas supraclinoid aspects of the in ternal carotid arteries are patent. Both middle cerebral arteries are demonstrated be patent at the out to and including the sylvian fissure branches. Left A1 segment is patent. Right A1 segment appe ars occluded approximately 5 millimeters proximal to the anterior communicating artery. The anterior cerebral arteries are patent. There is no evidence of aneurysm at the level of the anterior communi cating artery Posterior circulation: Basilar artery ascends in the midline with 3.3 millimeter luminal diameter and no evidence of intralu dulce maria thrombus nor dissection. Distally basilar artery gives off thin bilateral superior cerebellar arteries and above this level terminates as patent bilateral posterior cerebral arteries. There is n o evidence of aneurysm of the tip of the basilar artery. CT BRAIN: There is no evidence of intracranial hemorrhage, mass effect, or shift of midline structures. There are no extra-axial fluid collections. Ventricles are not enlarged or shifted and there is no blood w ithin the ventricular system nor within the basal cisterns. There are no ring enhancing lesions in t he brain and no abnormal meningeal enhancement. Subtle periventricular white matter hypodensity is unchanged from the prior study of July 2017. IMPRESSION: 1. 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 The left A1 segment is patent . 2. No abnormality the posterior circulation evident. 3. Some plaque is noted at the level the carotid bifurcations and proximal internal carotid arteri es in the neck but less than 20 percent stenosis. This is a combination of calcified and noncalcifie d plaque. RADIATION DOSE DELIVERED: 3,250.27mGy.cm Total DLP DATA REPOSITORY: All CT scans at this facility are submitted to the National Radiology Data Registry (NRDR) Dose Index Registry (DIR) with the [employer] ([employer]). RADIATION OPTIMIZATION: All CT scans at this facility use at least one of these dose optimization te chniques: automated exposure control; mA and/or kV adjustment per patient size (includes targeted exa ms where dose is matched to clinical indication); or iterative reconstruction.
--- NOTE | 2021-03-20 13:15 | DI.RAD_ITS ---
Exam(s) XR CHEST 2V PA LATERAL EXAM: XR CHEST 2V PA LATERAL CLINICAL HISTORY: dizziness, r/o acute disease. TECHNIQUE: 2D digital imaging was performed. COMPARISON: CR PORTABLE AP CHEST, POST LINE from 10/01/2017 FINDINGS: Cardiomegaly and sternotomy wires. Mediastinum is not widened Mild pulmonary venous hypertension pattern but no airspace pulmonary edema. No pleural effusions. N o Luz Maria B lines IMPRESSION: Sternotomy. Mild cardiomegaly. Pulmonary venous hypertension pattern. DATA REPOSITORY: RADIATION DOSE DELIVERED:
--- NOTE | 2021-03-20 13:26 | ED.GENADUL_ITS ---
Discharge Plan Disposition Patient Disposition: HOME Condition: Stable Discharge Details Clinical Impression: Dizziness Primary Care Provider: Lovely Vicente ED Provider: Chrystal Arredondo Home Meds and New Rx's Prescriptions: Continued ferrous sulfate 325 mg (65 mg iron) tablet 325 mg PO DAILY RF: 0 warfarin 2.5 mg tablet See Rx Instructions mg PO QPM Qty: 600 RF: 11 Lantus Solostar U-100 Insulin 100 unit/mL (3 mL) insulin pen 30 unit subcut DAILY Qty: 25 RF: 4 lisinopril 10 mg tablet 10 mg PO DAILY Qty: 90 RF: 12 turmeric root extract 500 mg capsule 500 mg PO BID RF: 0 atorvastatin 10 mg tablet 10 mg PO .COMPLEX Qty: 90 RF: 4 clobetasol 0.05 % solution 1 applic Topical DAILY PRN (Reason: rash) Qty: 50 RF: 5 levothyroxine 175 mcg tablet 175 mcg PO DAILY Qty: 90 RF: 12 metformin 850 mg tablet 850 mg PO BID Qty: 180 RF: 4 metoprolol succinate 25 mg tablet extended release 24 hr 25 mg PO DAILY Qty: 90 RF: 5 (DME) blood-glucose meter 1 EACH misc 1 ea Miscellaneous PRN Qty: 1 RF: 0 (DME) lancets [BD Ultra Fine Lancets] 1 EACH misc 1 ea Sub-Q AC & HS Qty: 400 RF: 6 acetaminophen 650 MG tablet 2 tab PO BID PRN RF: 0 (DME) pen needle, diabetic [Pen Needle] 31 gauge x 5/16 needle 1 ea Miscellaneous ac and hs Qty: 400 RF: 3 (DME) Blood Glucose Test Strip 1 ea Miscellaneous AC & HS Qty: 400 RF: 12 furosemide 20 mg tablet 20 mg PO DAILY Qty: 90 RF: 6 insulin lispro [Humalog KwikPen Insulin] 100 unit/mL insulin pen 25 unit subcut AC Qty: 30 RF: 4 magnesium oxide 500 mg capsule 500 mg PO DAILY Qty: 180 RF: 0 ascorbic acid (vitamin C) [Vitamin C] 500 mg tablet 500 mg PO DAILY RF: 0 Discharge Instructions Instructions: Dizziness (ED) Additional Instructions: Your CT scan of your brain today noted an occlusion (blockage in a blood vessel) in an artery in your brain. This is likely a chronic finding as the MRI of your brain today did not note any evidence of an acute stroke. Drink plenty of fluids and get plenty of rest. Start taking an 81 mg aspirin once daily. Call your primary care doctor tomorrow to schedule a follow-up appointment for reevaluation within the next week and for referral to neurology or ENT if your dizziness continues. Return immediately to the emergency department if you develop any worsening or new concerning symptoms. Discharge Data Discharge Date/Time-TO BE ENTERED AT DEPARTURE: 03/20/21 18:45 Discharge Physician: Chrystal Arredondo Medical Decision Making 76-year-old male with a history of depression, GERD, hypertension, hyperlipidemia, atrial fibrillation on Coumadin, STEMI, diabetes, CABG presents for dizziness and blurry vision this morning. EKG notes rate of 70, sinus, PVCs, no STEMI and nondiagnostic. He has no focal deficits on exam. He has minimal shaking of extremities throughout and slight shaking noted in his voice. Differential diagnosis includes acute CVA, arrhythmia, electrolyte abnormality, UTI, dehydration. Will place an IV, screening labs, CTA head and neck, chest x- ray and give fluids and reassess. Labs and imaging reviewed. White blood cell count 7. INR 2. Magnesium 1.6, will replete. Troponin negative. TSH within normal limits. Urinalysis negative for infection. CTA head and neck notes occlusion in the right A1 segment of the brain. Dr. Hidalgo recommends MRI/MRA brain. Chest x-ray negative. MRI/MRA brain negative for acute findings. Will contact [facility] neurology for recommendations. Discussed with [facility] neurology who reviewed the CT and MR imaging and there is no evidence of acute stroke and the A1 segment occlusion is likely chronic and incidental finding as it does not correlate with his symptoms today. He is recommending starting an 81 mg aspirin and follow-up with his PCP for reevaluation. Patient reassessed and he states he feels much better and is requesting to go home. Patient was able to ambulate and denies any dizziness. Patient was given his results and reports and advised to follow-up with his PCP for reevaluation and for referral to neurology. Advised to follow up with the primary care doctor for re-evaluation. Usual and customary return precautions given prior to discharge. Medical Records Medical records reviewed: Yes I reviewed the patient's medical records. Imaging Data Radiologic Study: Radiologist's impression: CT BRAIN NECK CTA CLINICAL HISTORY: dizziness, blurry vision, r/o acute cva. TECHNIQUE: Imaging Protocol: Axial CT angiography was performed with multi- slice acquisition and multi-planar and/or 3D reconstructions. CONTRAST MATERIAL: Intravenous: Omnipaque 350 Contrast volume:structured data in ml COMPARISON: CT HEAD WITHOUT CONTRAST from 08/03/2017 CT HEAD WITHOUT CONTRAST from 08/03/2017 CT PELVIC/LOWER ABD WITH CON(P) from 08/03/2017 FINDINGS: CTA Neck W: Aortic arch anatomy: The aortic arch anatomy is conventional. Sternotomy wires noted. Anterior circulation: Both common carotid arteries ascend with normal luminal diameters. There is no stenosis at their origins. Distally there is mild calcified plaque on the posterior wall of the right carotid bifurcation proximal right internal carotid artery but with less than 10 percent stenosis at this level. Just above this level there is additional calcified plaque on the medial wall of the proximal right ICA, approximately 20 percent stenosis. Above this level the right ICA in the neck is nicely patent and not tortuous. The left common carotid artery ascends with normal luminal diameter. There is both calcified and noncalcified plaque in left carotid bifurcation and proximal left internal carotid artery. Approximately 20 percent stenosis. Some calcification along the medial wall is seen in the left ICA slightly above this with approximately 10-15 percent stenosis. Above this level the left internal carotid artery is patent and non tortuous in the upper neck. Posterior circulation: Both vertebral arteries arising conventional fashion off of the subclavian arteries with no evidence of significant stenosis at their origins nor stenosis in the subclavian arteries proximal to the vertebral artery takeoff points. Left vertebral artery is dominant and ascends with a patent luminal diameter of 5 millimeters. The right vertebral artery is slightly smaller diameter and also patent. At the skull base both vertebral arteries contribute to the formation of the basilar artery. The right vertebral artery at the skull base becomes a thinner vessel. CTA Brain W: Anterior circulation: Both internal carotid arteries are patent in the skull base-carotid canals. They are peripherally calcified within the cavernous sinuses but otherwise patent. Both psoas supraclinoid aspects of the internal carotid arteries are patent. Both middle cerebral arteries are demonstrated be patent at the out to and including the sylvian fissure branches. Left A1 segment is patent. Right A1 segment appears occluded approximately 5 millimeters proximal to the anterior communicating artery. The anterior cerebral arteries are patent. There is no evidence of aneurysm at the level of the anterior communicating artery Posterior circulation: Basilar artery ascends in the midline with 3.3 millimeter luminal diameter and no evidence of intraluminal thrombus nor dissection. Distally basilar artery gives off thin bilateral superior cerebellar arteries and above this level terminates as patent bilateral posterior cerebral arteries. There is no evidence of aneurysm of the tip of the basilar artery. CT BRAIN: There is no evidence of intracranial hemorrhage, mass effect, or shift of midline structures. There are no extra-axial fluid collections. Ventricles are not enlarged or shifted and there is no blood within the ventricular system nor within the basal cisterns. There are no ring enhancing lesions in the brain and no abnormal meningeal enhancement. Subtle periventricular white matter hypodensity is unchanged from the prior study of July 2017. IMPRESSION: 1. 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 The left A1 segment is patent. 2. No abnormality the posterior circulation evident. 3. Some plaque is noted at the level the carotid bifurcations and proximal internal carotid arteries in the neck but less than 20 percent stenosis. This is a combination of calcified and noncalcified plaque. XR CHEST 2V PA LATERAL CLINICAL HISTORY: chest tightness, sob, r/o acute disease. TECHNIQUE: 2D digital imaging was performed. COMPARISON: CR XR CHEST 2V PA LATERAL from 09/01/2019 FINDINGS: Heart size is normal. The mediastinum is not widened. Lungs are clear. No infiltrates nor pleural effusions. IMPRESSION: No acute pulmonary findings. Lab Data Lab results reviewed: Yes I reviewed the patient's lab results. Labs: Laboratory Tests Range/Units 03/20/21 03/20/21 03/20/21 13:20 13:20 13:20 WBC (4.4-10.8) 10^3/uL 7.69 RBC (4.36-5.78) 10^6/uL 4.52 Hgb (13.5-17.5) g/dL 13.2 L Hct (40.0-50.0) % 40.6 MCV (80-95) fL 89.8 MCH (27.0-33.0) pg 29.2 MCHC (32.0-36.0) % 32.5 RDW (11.8-14.1) % 14.5 H Plt Count (130-400) 10^3/uL 183 MPV (8.0-11.0) fL 8.9 Immature Gran % 0.7 Neutrophils % 76.7 Lymphocytes % 12.6 Monocytes % 8.3 Eosinophils % 1.2 Basophils % 0.5 Nucleated RBC % % 0 Absolute Neutrophils (1.2-6.7) 10^3/uL 5.90 Absolute Lymphocytes (1.2-3.4) 10^3/uL 0.97 L Absolute Monocytes (0.1-0.8) 10^3/uL 0.64 Absolute Eosinophils (0.0-0.7) 10^3/uL 0.09 Absolute Basophils (0.0-0.2) 10^3/uL 0.04 PT (9.3-11.0) sec INR (0.9-1.1) APTT (21.0-27.5) sec Sodium (136-145) mmol/L 139 Potassium (3.5-5.1) mmol/L 4.2 Chloride (98-107) mmol/L 102 Carbon Dioxide (21.0-32.0) mmol/L 28.8 Anion Gap (3-11) mmol/L 8.2 BUN (7-18) mg/dL 24 H Creatinine (0.70-1.30) mg/dL 1.4 H Estimated GFR/1.73 m2 (mL/min/1.73m2) 49.41 Glucose (74-106) mg/dL 227 H Calcium (8.5-10.1) mg/dL 8.6 Magnesium (1.8-2.4) mg/dL 1.6 L Total Bilirubin (0.2-1.0) mg/dL 0.6 AST (15-37) U/L 17 ALT (16-63) U/L 36 Alkaline Phosphatase (46-116) U/L 97 Troponin I (<0.06) ng/mL < 0.05 Total Protein (6.4-8.2) g/dL 7.7 Albumin (3.4-5.0) g/dL 3.8 TSH (0.36-3.74) uIU/mL Urine Color (Yellow) Urine Clarity (Clear) Urine pH (5-8) Ur Specific Clutier (1.005-1.025) Urine Protein (Negative) mg/dL Urine Ketones (Negative) mg/dL Urine Blood (Negative) Urine Nitrite (Negative) Urine Bilirubin (Negative) Urine Urobilinogen (Up TO 0.2) EU/dL Ur Leukocyte Esterase (Negative) Urine RBC (0-2) HPF Urine WBC (0-5) HPF Ur Epithelial Cells (Negative) HPF Urine Crystals (Negative) HPF Urine Bacteria (Negative) HPF Urine Casts (Negative) LPF Urine Mucus (Negative) Ur Culture Indicated? Urine Glucose (Negative) mg/dL Range/Units 03/20/21 03/20/21 03/20/21 13:20 13:20 14:10 WBC (4.4-10.8) 10^3/uL RBC (4.36-5.78) 10^6/uL Hgb (13.5-17.5) g/dL Hct (40.0-50.0) % MCV (80-95) fL MCH (27.0-33.0) pg MCHC (32.0-36.0) % RDW (11.8-14.1) % Plt Count (130-400) 10^3/uL MPV (8.0-11.0) fL Immature Gran % Neutrophils % Lymphocytes % Monocytes % Eosinophils % Basophils % Nucleated RBC % % Absolute Neutrophils (1.2-6.7) 10^3/uL Absolute Lymphocytes (1.2-3.4) 10^3/uL Absolute Monocytes (0.1-0.8) 10^3/uL Absolute Eosinophils (0.0-0.7) 10^3/uL Absolute Basophils (0.0-0.2) 10^3/uL PT (9.3-11.0) sec 19.5 H INR (0.9-1.1) 2.0 H APTT (21.0-27.5) sec 32.2 H Sodium (136-145) mmol/L Potassium (3.5-5.1) mmol/L Chloride (98-107) mmol/L Carbon Dioxide (21.0-32.0) mmol/L Anion Gap (3-11) mmol/L BUN (7-18) mg/dL Creatinine (0.70-1.30) mg/dL Estimated GFR/1.73 m2 (mL/min/1.73m2) Glucose (74-106) mg/dL Calcium (8.5-10.1) mg/dL Magnesium (1.8-2.4) mg/dL Total Bilirubin (0.2-1.0) mg/dL AST (15-37) U/L ALT (16-63) U/L Alkaline Phosphatase (46-116) U/L Troponin I (<0.06) ng/mL Total Protein (6.4-8.2) g/dL Albumin (3.4-5.0) g/dL TSH (0.36-3.74) uIU/mL 2.76 Urine Color (Yellow) Yellow Urine Clarity (Clear) Clear Urine pH (5-8) 7.0 Ur Specific Clutier (1.005-1.025) 1.015 Urine Protein (Negative) mg/dL Negative Urine Ketones (Negative) mg/dL Negative Urine Blood (Negative) Trace-intact H Urine Nitrite (Negative) Negative Urine Bilirubin (Negative) Negative Urine Urobilinogen (Up TO 0.2) EU/dL 0.2 Ur Leukocyte Esterase (Negative) Negative Urine RBC (0-2) HPF 0-2 Urine WBC (0-5) HPF 0-2 Ur Epithelial Cells (Negative) HPF Rare Urine Crystals (Negative) HPF Negative Urine Bacteria (Negative) HPF Negative Urine Casts (Negative) LPF Negative Urine Mucus (Negative) Negative Ur Culture Indicated? No Urine Glucose (Negative) mg/dL 100 ECG Data Attestation: I personally reviewed and interpreted this ECG (s) as follows: Interpretation: Rate of 70, sinus. PVCs. No acute ST elevation or depression. NV 186. QRS 107. QTc 434. HPI General Mode of arrival: ambulatory . Date/Time Provider Initiated Documentation: 03/20/21 13:09 . Limitations to Documentation: no limitations . Information obtained by: patient . HPI Narrative: Patient is a 76-year-old male with a history of atrial fibrillation on warfarin, STEMI, diabetes, CABG who presents for dizziness and blurry vision this morning. Patient states after awakening this morning, he has had intermittent lightheadedness and blurry vision. He states he feels somewhat shaky. He states he did drive to [place] this morning for an appointment. He admits to feeling like he is stumbling around while walking. Denies any headache, chest pain, shortness of breath, abdominal pain, nausea, vomiting, extremity weakness or numbness. Related Data Home Medications Medication Instructions Recorded Confirmed blood-glucose meter #1 ea 07/24/14 03/20/21 lancets [BD Ultra Fine Lancets] #400 ndl 10/25/17 03/20/21 acetaminophen 2 tab PO BID PRN 11/02/17 03/20/21 turmeric root extract 500 mg 500 mg PO BID 12/13/18 03/20/21 capsule blood sugar diagnostic #400 strip 02/15/20 03/20/21 pen needle, diabetic 31 gauge x #400 ndl 02/15/20 03/20/2112/08 ferrous sulfate 325 mg (65 mg 325 mg PO DAILY 04/25/20 03/20/21 iron) tablet warfarin 2.5 mg tablet See Rx Instructions PO QPM #600 04/25/20 03/20/21 tab-cap clobetasol 0.05 % scalp solution 1 applic TOPICAL DAILY PRN #50 ml 07/25/20 03/20/21 levothyroxine 175 mcg tablet 175 mcg PO DAILY #90 tab-cap 07/25/20 03/20/21 metformin 850 mg tablet 850 mg PO BID #180 tab 07/25/20 03/20/21 metoprolol succinate 25 mg 25 mg PO DAILY #90 tab 07/25/20 03/20/21 tablet,extended release 24 hr furosemide 20 mg tablet 20 mg PO DAILY #90 tab-cap 07/30/20 03/20/21 insulin lispro 100 unit/mL 25 unit SUBCUT AC #30 ml 07/30/20 03/20/21 subcutaneous pen insulin glargine 100 unit/mL (3 30 unit SUBCUT DAILY #25 ml 10/28/20 03/20/21 mL) subcutaneous pen lisinopril 10 mg tablet 10 mg PO DAILY #90 tab-cap 10/28/20 03/20/21 magnesium oxide 500 mg capsule 500 mg PO DAILY #180 tab 10/28/20 03/20/21 ascorbic acid (vitamin C) 500 mg 500 mg PO DAILY 12/31/20 03/20/21 tablet atorvastatin 10 mg tablet 10 mg PO .COMPLEX #90 tab-cap 12/31/20 03/20/21 Previous Rx's Medication Instructions Recorded lancets [BD Ultra Fine Lancets] #400 ndl 10/25/17 blood sugar diagnostic #400 strip 02/15/20 pen needle, diabetic 31 gauge x #400 ndl 02/15/2012/08 warfarin 2.5 mg tablet See Rx Instructions PO QPM #600 04/25/20 tab-cap clobetasol 0.05 % scalp solution 1 applic TOPICAL DAILY PRN #50 ml 07/25/20 levothyroxine 175 mcg tablet 175 mcg PO DAILY #90 tab-cap 07/25/20 metformin 850 mg tablet 850 mg PO BID #180 tab 07/25/20 metoprolol succinate 25 mg 25 mg PO DAILY #90 tab 07/25/20 tablet,extended release 24 hr furosemide 20 mg tablet 20 mg PO DAILY #90 tab-cap 07/30/20 insulin lispro 100 unit/mL 25 unit SUBCUT AC #30 ml 07/30/20 subcutaneous pen insulin glargine 100 unit/mL (3 30 unit SUBCUT DAILY #25 ml 10/28/20 mL) subcutaneous pen lisinopril 10 mg tablet 10 mg PO DAILY #90 tab-cap 10/28/20 atorvastatin 10 mg tablet 10 mg PO .COMPLEX #90 tab-cap 12/31/20 Allergies Allergy/AdvReac Type Severity Reaction Status Date / Time No Known Allergies Allergy Verified 03/20/21 15:41 General Stated Complaint: CVA/TIA RENETTA: 2 Review of Systems All systems reviewed & are unremarkable except as noted in HPI and below Constitutional Constitutional: Reports as per HPI, Denies chills and Denies fever(s) Eyes Eyes: Reports blurry vision ENT Ears, Nose, Mouth, and Throat: Reports dizziness, Denies sore throat and Denies throat swelling Cardiovascular Cardiovascular: Denies chest pain and Denies dyspnea Respiratory Respiratory: Denies cough and Denies dyspnea Gastrointestinal Gastrointestinal: Denies abdominal pain, Denies diarrhea and Denies vomiting Genitourinary Genitourinary: Denies hematuria and Denies dysuria Musculoskeletal Musculoskeletal: Denies back pain and Denies numbness Integumentary/Breasts Skin/Breast: Denies lesions and Denies rash Neurologic Neurologic: Reports dizziness, Denies localized weakness and Denies numbness Allergic/Immunologic Allergic/Immunologic: Denies throat swelling [facility] Medical History (Updated 03/20/21 @ 18:20 by Chrystal Arredondo DO) Anemia (07/23/14) ASHD (arteriosclerotic heart disease) (07/05/17) [place]05[place] 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 Manning letter GE junction; pending path results BPH (benign prostatic hyperplasia) BPH NOS w/o ur obs/LUTS Bruising (03/07/18) on coumadin Carpal tunnel syndrome on both sides 01/22/15 Cerumen debris on tympanic membrane of right ear Confusion 08/03/17 Deep vein thrombosis (DVT) of tibial vein of right lower extremity 08/03/17 unspecified chronicity partial occlusion 07/29/17 Depression Diabetes mellitus Diabetic neuropathy (06/28/14) Essential hypertension (11/07/12) Functional disorder of stomach 09/12/12 GERD (gastroesophageal reflux disease) Heartburn (03/13/13) PPI prn Nisson fundiplication 06/08 History of tobacco use Quit 1970s Hyperlipemia Hypertension Hypomagnesemia (04/18/13) Clinically manifested with leg cramps; initiated Mg++ Oxide 03/2013 Hypothyroidism associated with surgical procedure (04/10/14) 03/2013 [facility] [place]: papillary carcinoma Ischemic cardiomyopathy (07/05/17) 07/05/17 LVEF=29% Ischemic leg 09/02/17 Left carpal tunnel syndrome (06/30/17) Malignant melanoma of skin (09/12/12) [facility]; HAS F/U IN SEPTEMBER 2012 & annually MELANOMA TO BACK Malignant melanoma of skin, unspecified in situ; neg. sentinel node Night cramps 04/11/13 Nontoxic multinodular goiter (09/12/12) Obesity MARIA VICTORIA (obstructive sleep apnea) Pain at injection site Papillary thyroid carcinoma 03/30/1302/2013 s/p thyroidectomy with Vernon Mcknight [facility] [place] Delcid cancer f/u [facility] Papillary thyroid carcinoma (03/30/13) Peripheral neuropathy (01/03/15) Pseudoaneurysm (11/29/17) [facility] Psoriasis (03/13/13) Scalp Restless legs 03/03/13 requip Sensorineural hearing loss, bilateral (11/28/12) Dr Vega; B/L hearing aids Sleep apnea study 02/06/14-severe obstructive sleep apnea; CPAP STEMI (ST elevation myocardial infarction) 07/05/17 Tubular adenoma of colon (07/03/14) 01/06 Type 2 diabetes mellitus with hyperglycemia (12/24/15) Urinary retention (06/28/14) UTI (urinary tract infection) Surgical History Colonoscopy - [facility] 01/16/14[place] [place] - [facility] (03/05/14) H/O esophagogastroduodenoscopy 07/26/13 Open Carpal Tunnel release 04/03/16- RIGHT S/P carpal tunnel release 04/03/16 right S/P thyroidectomy 07/26/12 [facility] [place]cknight S/P trigger finger release 04/03/16 trigger little finger of right hand Thyroidectomy, 2012 [facility] [place] Manny Mcknight Trigger Finger release 04/03/16; RIGHT SMALL FINGER Family History Mother Alcohol abuse Father , 82? Diabetes Brother , 47 Alcohol abuse Lung cancer Maternal Grandfather , 80? No problems noted. Paternal Grandfather No problems noted. Maternal Grandmother , 78? Cancer Paternal Grandmother No problems noted. Son Substance abuse Daughter No problems noted. Social History (Updated 12/31/20 @ 16:30 by Amy Mac) Smoking/Tobacco Use Status: Former Tobacco Use tobacco type: cigarettes Quit Date: 07/26/77 Tobacco: How many years used: 15 Second Hand Exposure: Yes Smoking risk assessment performed?: Yes Alcohol Intake: former Drug use: Never Substance use type: does not use Counseling given: No Caregiver/Support person: No Household members: spouse Housing: house Communication Needs: Hard of Hearing Do you need help understanding health information?: Often current occupation: WORKING AT [employer]. Pets and animals: Yes Pets and animals: dog(s) Sexually active: No Do you think of yourself as: straight/heterosexual Current gender identity: male What is your relationship status?: How often do you talk on the phone with friends or family?: three or more times per week How often do you get together with friends or relatives?: twice per week How often do you attend scientology or sikh services?: 4 or more times per year Do you belong to any clubs or organized social groups?: yes Panel score (0-1 are the most socially isolated patients): 4 What type of physical activity do you participate in: walking Special shady needs: No Seatbelt use: always Helmet use: Yes Helmet use: sometimes Drive intox or ride w/intox 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 Do you feel safe at home: Yes Do you feel safe in your relationship?: Yes Exam Const General: cooperative and no acute distress HENMT Head: normal to inspection Face and sinus: normal facial exam Eyes General: appearance normal, both eyes and all related structures Pupils: PERRL EOM: EOM intact bilaterally Neck Neck: normal visual inspection and No submandibular swelling Lymphatic: no lymphadenopathy noted Chest Chest: normal inspection of the chest and no tenderness Resp Effort & Inspection: normal respiratory effort and able to speak in complete sentences Auscultation: clear to auscultation bilaterally Cardio Rate: regular rate Rhythm: regular rhythm GI Inspection: normal to inspection Palpation: soft, not firm, not rigid and nontender Auscultation: normal bowel sounds Back/Spine/Pelvis Pelvis: no pain with anterior-posterior compression Skin General skin exam: no rashes or lesions noted Neuro General: patient alert, patient awake and patient oriented x3 Cranial Nerves: CN's II-XI intact bilaterally Cognition: normal cognition Speech: abnormal speech (slightly shaky sounding) Motor: muscle tone normal throughout and strength 5/5 throughout Sensory Exam: no sensory deficits noted Other: Slight tremors of extremities. Extrem General: normal to inspection, full ROM, capillary refill normal, no calf tenderness bilaterally and no edema Psych Appearance: grossly normal Mental Status: mental status grossly normal Speech and Movement: speech and movement normal Affect: normal affect Course Vital Signs Vital signs: Vital Signs Temperature 97.7 F 03/20/21 13:07 Pulse 70 03/20/21 13:07 Respiratory Rate 16 03/20/21 13:07 Blood Pressure 192/90 H 03/20/21 13:07 Pulse Oximetry 99 03/20/21 13:07 Temperature 97.7 F 03/20/21 13:07 Temperature Source Temporal Artery Scan 03/20/21 13:07 Pulse 70 03/20/21 13:07 Respiratory Rate 18 03/20/21 13:22 Respiratory Effort Non-Labored 03/20/21 13:22 Respiratory Depth Normal 03/20/21 13:22 Respiratory Pattern Normal 03/20/21 13:22 Blood Pressure 192/90 H 03/20/21 13:07 Blood Pressure Position Sitting 03/20/21 13:07 Pulse Oximetry 99 03/20/21 13:07 Oxygen Delivery Method Room Air 03/20/21 13:07 Oxygen Flow Rate 0 03/20/21 13:07 Pain Level 0 03/20/21 13:07
[2021-03-20 13:27] LABS: Abs Immature Grans 0.05 10^3/uL (0.0-0.06); Absolute Basophil Count 0.04 10^3/uL (0.0-0.2); Absolute Eosinophil Count 0.09 10^3/uL (0.0-0.7); Absolute Lymphocyte Count 0.97 10^3/uL (1.2-3.4); Absolute Monocyte Count 0.64 10^3/uL (0.1-0.8); Basophils % 0.5; Eosinophils % 1.2; HCT 40.6 % (40.0-50.0); HGB 13.2 g/dL (13.5-17.5); Immature Grans % 0.7; Lymphocytes % 12.6; MCH 29.2 pg (27.0-33.0); MCHC 32.5 % (32.0-36.0); MCV 89.8 fL (80-95); MPV 8.9 fL (8.0-11.0); Monocytes % 8.3; Neutrophils % 76.7; Nucleated RBC 0 %; Platelet Count 183 10^3/uL (130-400); RBC 4.52 10^6/uL (4.36-5.78); RDW 14.5 % (11.8-14.1); RDW-SD 47.2 fL; WBC 7.69 10^3/uL (4.4-10.8)
[2021-03-20 13:33] LABS: Magnesium 1.6 mg/dL (1.8-2.4)
[2021-03-20 13:49] LABS: ALT 36 U/L (16-63); AST 17 U/L (15-37); Albumin 3.8 g/dL (3.4-5.0); Alkaline Phosphatase 97 U/L (46-116); Anion Gap 8.2 mmol/L (3-11); BUN 24 mg/dL (7-18); Bilirubin, Total 0.6 mg/dL (0.2-1.0); CO2 28.8 mmol/L (21.0-32.0); CREATININE 1.4 mg/dL (0.70-1.30); Calcium 8.6 mg/dL (8.5-10.1); Chloride 102 mmol/L (98-107); Estimated GFR 49.41 (mL/min/1.73m2); Glucose 227 mg/dL (74-106); PTT Activated 32.2 sec (21.0-27.5); Potassium 4.2 mmol/L (3.5-5.1); Prothrombin Time 19.5 sec (9.3-11.0); Sodium 139 mmol/L (136-145); Total Protein 7.7 g/dL (6.4-8.2); Troponin I < 0.05 ng/mL (<0.06)
[2021-03-20 14:01] LABS: TSH (W/Ref FT4) 2.76 uIU/mL (0.36-3.74)
[2021-03-20] MEDS: Omnipaque 350 MG/ML 100 ML BTL IV (14:10)
[2021-03-20 14:14] LABS: Bilirubin Negative (Negative); Blood Trace-intact (Negative); Clarity Clear (Clear); Glucose 100 mg/dL (Negative); Ketones Negative (Negative); Leukocyte Esterase Negative (Negative); Nitrite Negative (Negative); Specific Gravity 1.015 (1.005-1.025); Urobilinogen 0.2 EU/dL (Up TO 0.2)
--- NOTE | 2021-03-20 14:15 | DI.MRI_ITS ---
Exam(s) MR BRAIN WO EXAM: MR BRAIN WO CLINICAL HISTORY: dizziness, r/o acute disease TECHNIQUE: Multiplanar multisequence MRI of the brain was performed. COMPARISON: No exams were available for comparison FINDINGS: There is moderate generalized cerebral atrophy and there are signal changes in periventricular white matter consistent with microvascular ischemic changes. There are probable small old right cerebellar and pontine infarcts. No no other significant signal abnormality identified in the brain. The orbital and temporal bone structures appear intact as does the pituitary. Diffusion weighted imaging shows no evidence of infarction. Susceptibility weighted imaging shows no evidence of intracranial hemorrhage. There is normal flow void in the [place] vasculature. IMPRESSION: No evidence of acute intracranial process. DATA REPOSITORY:
--- NOTE | 2021-03-20 14:15 | DI.MRI_ITS ---
Exam(s) MR ANGIO BRAIN WO EXAM: MR ANGIO BRAIN WO CLINICAL HISTORY: dizziness, blurry vision, r/o acute cva. TECHNIQUE: Multiplanar multisequence MRI was performed. COMPARISON: CT CT BRAIN NECK CTA from 03/20/[address] BRAIN NECK CTA from 03/20/2021 FINDINGS: MR angiography of the brain was performed according to the usual protocol. Note is made of a left do minant vertebral circulation. Otherwise vertebral and basilar arteries are unremarkable. The right A1 segment, as noted on the CT angiogram obtained earlier today, appears occluded. Both an terior cerebral arteries and major branches appear intact. Both middle cerebral arteries and major b ranches appear intact, no evidence of aneurysm, dissection, or significant stenosis. Posterior cereb ral arteries appear intact bilaterally with no aneurysm, dissection, or stenosis. IMPRESSION: Right A1 segment occlusion, the finding is concordant with CT angiography obtained earlier today. No other significant findings. DATA REPOSITORY:
[2021-03-20] MEDS: Normal Saline 500 ML IV (14:16)
[2021-03-20] MEDS: MAGNESIUM SULFATE 1 GM/100 ML BAG IVPB (14:16)
[2021-03-20 14:20] LABS: Bacteria Negative HPF (Negative); C & S Indicated? No; Casts Negative LPF (Negative); Crystals Negative HPF (Negative); Epithelial Cells Rare HPF (Negative); Mucus Negative (Negative); RBC 0-2 HPF (0-2); WBC 0-2 HPF (0-5)
[2021-03-20] MEDS: LORazepam 2 MG/ML VIAL 1 MG IVP (15:53)
--- NOTE | 2021-03-20 16:59 | DI.VRAD_ITS ---
PROCEDURE INFORMATION: Exam: MRA Head Without Contrast; Arteriography Exam date and time: 03/20/2021 4:21 PM Age: 76 years old Clinical indication: Dizziness and giddiness TECHNIQUE: Imaging protocol: Magnetic resonance angiography head without contrast. Exam focused on the arteries. COMPARISON: CT BRAIN NECK CTA 03/20/2021 1:29 PM FINDINGS: ANTERIOR CIRCULATION: Right internal carotid artery: Intracranial segment is patent with no significant stenosis. No aneurysm. Right middle cerebral artery: No occlusion or significant stenosis. No aneurysm. Right anterior cerebral artery: No signal is seen in the right A1 segment, corresponding to the non filling vessel on the CTA examination. Left internal carotid artery: Intracranial segment is patent with no significant stenosis. No aneurysm. Left middle cerebral artery: No occlusion or significant stenosis. No aneurysm. Left anterior cerebral artery: No occlusion or significant stenosis. No aneurysm. POSTERIOR CIRCULATION: Right vertebral artery: Moderate narrowing of the distal right vertebral artery. This finding also corresponds to the CTA. Left vertebral artery: No occlusion or significant stenosis. No aneurysm. Basilar artery: No occlusion or significant stenosis. No aneurysm. Right posterior cerebral artery: No occlusion or significant stenosis. No aneurysm. Left posterior cerebral artery: No occlusion or significant stenosis. No aneurysm. IMPRESSION: Stable examination with no signal identified in the right A1 segment and moderate narrowing of the distal right vertebral artery.. Dictated and Authenticated by: Nick Collins MD. Ordering:PAPI Jarrell MD
--- NOTE | 2021-03-20 17:02 | DI.VRAD_ITS ---
PROCEDURE INFORMATION: Exam: MR Head Without Contrast Exam date and time: 03/20/2021 4:32 PM Age: 76 years old Clinical indication: Dizziness and visual disturbance TECHNIQUE: Imaging protocol: MR of the head without contrast. COMPARISON: CT BRAIN NECK CTA 03/20/2021 1:29 PM FINDINGS: Brain: There is no evidence of acute hemorrhage or acute territorial infarct. For age there are moderate diffuse involutional changes present. Mild to moderate T2 and FLAIR hyperintensities suggest small vessel disease. No significant hemosiderin deposition. The expected vascular flow voids are present centrally. Cerebral ventricles: Normal. No ventriculomegaly. Bones/joints: Unremarkable. Paranasal sinuses: Normal as visualized. No acute sinusitis. Mastoid air cells: Normal as visualized. No mastoid effusion. Orbital cavity: Unremarkable. Soft tissues: Unremarkable. IMPRESSION: Chronic appearing changes in the brain without acute intracranial abnormality. Dictated and Authenticated by: Nick Collins MD. Ordering:PAPI Jarrell MD
[2021-03-20] MEDS: Patient's Own Medication 1 EACH MISC 25 EACH SC (17:47)
[2021-03-20] MEDS: Aspirin 81 MG CHEW CH (18:27)
== END 2021-03-20 18:45 | disposition home or self-care (01) ==
PROVIDERS: Emergency Provider Physician Assistant; PCP Family Medicine
DX: R42 Dizziness and giddiness (principal); H53.8 Other visual disturbances; R53.1 Weakness
CPT/HCPCS: 36415; 36416; 70496; 70498; 70544; 80053; 82962; 93005; 96361; 96365; 96375; 99285; 70551; 71046; 81003; 81015; 83735; 84443; 84484; 85025; 85610; 85730; 93010; 99284; J2060; J3475; J3490

== ENCOUNTER 2021-03-27 07:13 | Outpatient (CLI) | payer MEDICARE, BC, SELFPAY ==
[2021-03-27 07:53] LABS: INR 2.1 (0.9-1.1); Prothrombin Time 20.6 sec (9.3-11.0)
== END 2021-03-27 07:14 | disposition home or self-care (01) ==
PROVIDERS: PCP Family Medicine; Visit Provider Family Medicine
DX: I48.91 Unspecified atrial fibrillation (principal); Z79.01 Long term (current) use of anticoagulants
CPT/HCPCS: 36415; 85610

== ENCOUNTER 2021-04-03 16:55 | Outpatient (REF) | payer MEDICARE, BC, SELFPAY ==
[2021-04-03 18:31] LABS: C Diff PCR Negative (Negative)
[2021-04-05 11:37] LABS: Campylobacter PCR Negative (Negative); Salmonella PCR Negative (Negative); Shiga Toxin PCR Negative (Negative); Shigella/Enteroinvasive Ecoli Negative (Negative)
== END 2021-04-03 16:56 | disposition home or self-care (01) ==
LOC: LBN 16:55
PROVIDERS: PCP Family Medicine; Visit Provider Family Medicine
DX: R19.7 Diarrhea, unspecified (principal)
CPT/HCPCS: 87329; 87493; 87505

== ENCOUNTER 2021-04-24 04:03 | Outpatient (CLI) | payer MEDICARE, BC, SELFPAY ==
[2021-04-24 07:25] LABS: INR 2.7 (0.9-1.1); Prothrombin Time 26.9 sec (9.3-11.0)
== END 2021-04-24 04:04 | disposition home or self-care (01) ==
LOC: LBO 04:04
PROVIDERS: PCP Family Medicine; Visit Provider Family Medicine
DX: Z51.81 Encounter for therapeutic drug level monitoring (principal)
CPT/HCPCS: 36415; 85610

== ENCOUNTER 2021-05-22 02:07 | Outpatient (CLI) | payer MEDICARE, BC, SELFPAY ==
[2021-05-22 07:48] LABS: INR 2.6 (0.9-1.1); Prothrombin Time 25.7 sec (9.3-11.0)
== END 2021-05-22 02:08 | disposition home or self-care (01) ==
LOC: LBO 02:07
PROVIDERS: PCP Family Medicine; Visit Provider Family Medicine
DX: Z51.81 Encounter for therapeutic drug level monitoring (principal)
CPT/HCPCS: 36415; 85610

== ENCOUNTER 2021-06-18 02:27 | Outpatient (CLI) | payer MEDICARE, BC, SELFPAY ==
[2021-06-18 07:54] LABS: INR 3.6 (0.9-1.1); Prothrombin Time 34.8 sec (9.3-11.0)
== END 2021-06-18 02:28 | disposition home or self-care (01) ==
LOC: LBO 02:27
PROVIDERS: PCP Family Medicine; Visit Provider Family Medicine
DX: Z51.81 Encounter for therapeutic drug level monitoring (principal)
CPT/HCPCS: 36415; 85610

== ENCOUNTER 2021-07-03 02:41 | Outpatient (CLI) | payer MEDICARE, BC, SELFPAY ==
[2021-07-03 07:50] LABS: INR 1.9 (0.9-1.1); Prothrombin Time 18.9 sec (9.3-11.0)
== END 2021-07-03 02:42 | disposition home or self-care (01) ==
LOC: LBO 02:42
PROVIDERS: PCP Family Medicine; Visit Provider Family Medicine
DX: Z51.81 Encounter for therapeutic drug level monitoring (principal)
CPT/HCPCS: 36415; 85610

== ENCOUNTER 2021-07-10 02:34 | Outpatient (CLI) | payer MEDICARE, BC, SELFPAY ==
[2021-07-10 07:46] LABS: Hemoglobin A1C 7.2 % (<5.7)
[2021-07-10 07:57] LABS: INR 2.7 (0.9-1.1); Prothrombin Time 26.2 sec (9.3-11.0)
[2021-07-10 08:55] LABS: ALT 30 U/L (16-63); AST 19 U/L (15-37); Albumin 3.9 g/dL (3.4-5.0); Alkaline Phosphatase 94 U/L (46-116); Anion Gap 5.6 mmol/L (3-11); BUN 23 mg/dL (7-18); Bilirubin, Total 0.6 mg/dL (0.2-1.0); CO2 31.4 mmol/L (21.0-32.0); CREATININE 1.3 mg/dL (0.70-1.30); Calcium 8.4 mg/dL (8.5-10.1); Chloride 103 mmol/L (98-107); Estimated GFR 53.82 (mL/min/1.73m2); Glucose 288 mg/dL (74-106); Potassium 4.9 mmol/L (3.5-5.1); Sodium 140 mmol/L (136-145); Total Protein 7.1 g/dL (6.4-8.2)
== END 2021-07-10 02:35 | disposition home or self-care (01) ==
LOC: LBO 02:34
PROVIDERS: PCP Family Medicine; Visit Provider Family Medicine
DX: E11.65 Type 2 diabetes mellitus with hyperglycemia (principal); I10 Essential (primary) hypertension; N28.9 Disorder of kidney and ureter, unspecified; I48.91 Unspecified atrial fibrillation; Z79.01 Long term (current) use of anticoagulants
CPT/HCPCS: 36415; 80053; 83036; 85610

== ENCOUNTER 2021-08-07 04:11 | Outpatient (CLI) | payer MEDICARE, BC, SELFPAY ==
[2021-08-07 07:37] LABS: INR 2.9 (0.9-1.1)
== END 2021-08-07 04:12 | disposition home or self-care (01) ==
LOC: LBO 04:11
PROVIDERS: PCP Family Medicine; Visit Provider Family Medicine
DX: Z51.81 Encounter for therapeutic drug level monitoring (principal); R97.20 Elevated prostate specific antigen [PSA]
CPT/HCPCS: 36415; 84154; 85610

== ENCOUNTER 2021-09-04 02:38 | Outpatient (CLI) | payer MEDICARE, BC, SELFPAY ==
[2021-09-04 07:47] LABS: INR 2.5 (0.9-1.1); Prothrombin Time 24.8 sec (9.3-11.0)
== END 2021-09-04 02:39 | disposition home or self-care (01) ==
LOC: LBO 02:39
PROVIDERS: PCP Family Medicine; Visit Provider Family Medicine
DX: I48.20 Chronic atrial fibrillation, unspecified (principal); Z79.01 Long term (current) use of anticoagulants
CPT/HCPCS: 36415; 85610

== ENCOUNTER 2021-10-02 02:37 | Outpatient (CLI) | payer MEDICARE, BC, SELFPAY ==
[2021-10-02 07:41] LABS: INR 2.7 (0.9-1.1); Prothrombin Time 26.8 sec (9.3-11.0)
== END 2021-10-02 02:38 | disposition home or self-care (01) ==
LOC: LBO 02:37
PROVIDERS: PCP Family Medicine; Visit Provider Family Medicine
DX: I48.91 Unspecified atrial fibrillation (principal); Z79.01 Long term (current) use of anticoagulants
CPT/HCPCS: 36415; 85610

== ENCOUNTER 2021-10-09 03:31 | Outpatient (CLI) | payer MEDICARE, BC, SELFPAY ==
[2021-10-09 09:13] LABS: Hemoglobin A1C 7.3 % (<5.7)
[2021-10-09 09:15] LABS: INR 1.7 (0.9-1.1); Prothrombin Time 17.2 sec (9.3-11.0)
== END 2021-10-09 03:32 | disposition home or self-care (01) ==
LOC: LBO 03:31
PROVIDERS: PCP Family Medicine; Visit Provider Family Medicine
DX: E11.9 Type 2 diabetes mellitus without complications (principal); I48.91 Unspecified atrial fibrillation
CPT/HCPCS: 36415; 83036; 85610

== ENCOUNTER 2021-10-16 03:29 | Outpatient (CLI) | payer MEDICARE, BC, SELFPAY ==
[2021-10-16 08:32] LABS: INR 1.9 (0.9-1.1); Prothrombin Time 18.5 sec (9.3-11.0)
== END 2021-10-16 03:30 | disposition home or self-care (01) ==
LOC: LBO 03:29
PROVIDERS: PCP Family Medicine; Visit Provider Family Medicine
DX: Z51.81 Encounter for therapeutic drug level monitoring (principal); I48.91 Unspecified atrial fibrillation
CPT/HCPCS: 36415; 80053; 80061; 83036; 85610

== ENCOUNTER 2021-10-24 02:30 | Outpatient (CLI) | payer MEDICARE, BC, SELFPAY ==
[2021-10-24 11:41] LABS: INR 2.3 (0.9-1.1); Prothrombin Time 22.9 sec (9.3-11.0)
== END 2021-10-24 02:31 | disposition home or self-care (01) ==
PROVIDERS: PCP Family Medicine; Visit Provider Family Medicine
DX: Z51.81 Encounter for therapeutic drug level monitoring (principal)
CPT/HCPCS: 36415; 85610

== ENCOUNTER 2021-11-21 01:48 | Outpatient (CLI) | payer MEDICARE, BC, SELFPAY ==
[2021-11-21 07:37] LABS: Prothrombin Time 19.3 sec (9.3-11.0)
[2021-11-21 07:39] LABS: INR 1.9 (0.9-1.1)
== END 2021-11-21 01:49 | disposition home or self-care (01) ==
LOC: LBO 01:49
PROVIDERS: PCP Family Medicine; Visit Provider Family Medicine
DX: I48.20 Chronic atrial fibrillation, unspecified (principal); Z79.01 Long term (current) use of anticoagulants
CPT/HCPCS: 36415; 85610

== ENCOUNTER 2021-12-07 21:22 | Observation (INO) | payer MEDICARE, BC, SELFPAY ==
[2021-12-07] VITALS (32 sets, daily range): BP systolic 113–151; BP diastolic 60–80; PULSE 80–114; RESP 4–40; TEMP 36.6; O2SAT 84–95
--- NOTE | 2021-12-07 21:30 | RT.EKG_ITS ---
APPROVED REPORT Exam: Resting ECG Reason for Exam: SOB Patient Location: E HR:98 bpm ECG Measurements Heart Rate 98 AXIS AR 200 P 61 QRSd 117 QRS -53 QT 371 T 94 QTc 476 Conclusion Sinus rhythm...normal P axis, V-rate 60- 99 Ventricular premature complex...V complex w/ short R-R interval Incomplete RBBB and LAFB...axis(240,-40), S>R II III aVF Anterior infarct, old...Q >40mS, abnormal ST-T, V2-V5 Physician: slight less than 1mm elevation in V1. Artifact in V2, mild depression II, III, V5, V6. no stemi
--- NOTE | 2021-12-07 21:30 | DI.RAD_ITS ---
Exam(s) XR PORTABLE CHEST AP EXAM: XR PORTABLE CHEST AP CLINICAL HISTORY: PUI, SOB TECHNIQUE: 2D digital imaging was performed of the chest. One image was obtained. An AP view was ob tained. COMPARISON: CR XR CHEST 2V PA LATERAL from 03/20/2021 FINDINGS: MEDIASTINUM: Normal. HEART: Mild cardiomegaly. 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 PULMONARY VASCULATURE: Normal. LUNGS: Bilateral perihilar patchy infiltrates are seen. There are streaky infiltrates also seen bila terally particularly on the right. PLEURAL SPACE: No pneumothorax. Linear opacity on the right may represent fluid within the fissure. BONE:Within normal limits for the patient's age. OTHER FINDINGS:Normal. IMPRESSION: 1. Stable cardiomegaly, perihilar opacities and question of small amount of right fluid. Findings ma y represent congestive heart failure/fluid overload. 2. Opacities in the lung are suspected to be related to pulmonary edema but an atypical infection/pne umonia cannot be excluded. Please correlate clinically. DATA REPOSITORY: RADIATION DOSE DELIVERED:
--- NOTE | 2021-12-07 21:47 | ED.GENADUL_ITS ---
Discharge Plan Disposition Patient Disposition: [facility] INPATIENT Condition: Serious Discharge Details Clinical Impression: Non-ST elevation IA (NSTEMI) Primary Care Provider: Lovely Vicente ED Provider: Marisela Dean Home Meds and New Rx's Prescriptions: No Action ferrous sulfate 325 mg (65 mg iron) tablet 325 mg PO .4 day per week aspirin 81 mg tablet,chewable 81 mg PO .2 days/week levothyroxine 175 mcg tablet 175 mcg PO DAILY Qty: 90 12RF Rx Instructions: 1 tab daily except 2 tabs on Wed Lantus Solostar U-100 Insulin 100 unit/mL (3 mL) insulin pen 35 unit subcut DAILY Qty: 30 4RF losartan 100 mg tablet 100 mg PO DAILY Qty: 90 6RF metformin 850 mg tablet 850 mg PO BID Qty: 180 4RF metoprolol succinate 50 mg tablet extended release 24 hr 50 mg PO DAILY Qty: 90 5RF turmeric root extract 500 mg capsule 500 mg PO BID amlodipine 5 mg tablet 5 mg PO DAILY Qty: 90 6RF (DME) blood-glucose meter 1 EACH misc 1 ea Miscellaneous PRN Qty: 1 Rx Instructions: For Accucheck Compact meter DIAGNOSIS CODE 250.01 (DME) lancets [BD Ultra Fine Lancets] 1 EACH misc 1 ea Sub-Q AC & HS Qty: 400 6RF Rx Instructions: Labile blood sugar E11.65 DISPENSE: lancets acetaminophen 650 MG tablet 2 tab PO BID PRN magnesium oxide 500 mg capsule 500 mg PO DAILY Qty: 180 ascorbic acid (vitamin C) [Vitamin C] 500 mg tablet 500 mg PO DAILY Label Comments: 05/09/15- Takes during winter months. aj (DME) Blood Glucose Test Strip 1 ea Miscellaneous AC & HS Qty: 400 12RF Rx Instructions: accu check arriva METER. PT USES INSULIN. Labile DM. TESTS TID AND PRN.DIAGNOSIS CODE E11.65/Z79.4 atorvastatin 10 mg tablet 10 mg PO .COMPLEX Qty: 90 4RF Rx Instructions: 10 mg PO 5 days weekly; furosemide 20 mg tablet 20 mg PO DAILY Qty: 90 4RF (DME) pen needle, diabetic [Pen Needle] 31 gauge x 5/16 needle 1 ea Miscellaneous ac and hs Qty: 400 3RF Rx Instructions: 31G 3/16 pen needle to administer insulin.E11.65 warfarin 2.5 mg tablet See Rx Instructions PO QPM Qty: 600 11RF Protocol: Dose Management Condition: Wednesday Dose/Route: 5 mg Instruction: 2 x 2.5 mg tablets Condition: Wednesday Dose/Route: 7.5 mg Instruction: 3 x 2.5 mg tablets Condition: Wednesday Dose/Route: 5 mg Instruction: 2 x 2.5 mg tablets Condition: Wednesday Dose/Route: 5 mg Instruction: 2 x 2.5 mg tablets Condition: Dose/Route: 7.5 mg Instruction: 3 x 2.5 mg tablets Condition: Wednesday Dose/Route: 5 mg Instruction: 2 x 2.5 mg tablets Condition: Wednesday Dose/Route: 5 mg Instruction: 2 x 2.5 mg tablets Protocol Text: Adjustment Start Date: Wednesday11/21/21 INR Value: 1.9 INR Date: 11/21/21 Recheck Date: 12/21/21 Rx Instructions: 2-3 tabs PO every evening; dose dependent on PT/INR at [facility]; presently 21 tabs per week - changes often clobetasol 0.05 % solution 1 applic Topical DAILY PRN (Reason: rash) Qty: 50 5RF insulin lispro [Humalog KwikPen Insulin] 100 unit/mL insulin pen 25 unit subcut AC Qty: 30 4RF Medical Decision Making 76-year-old male past medical history of trailer of STEMI, recent CABG June 2017, Smith's esophagus, hypertension, ischemic cardiomyopathy, peripheral neuropathy, type 2 diabetes, atrial fibrillation on chronic anticoagulation on warfarin, obesity, obstructive sleep apnea, hyperlipidemia, GERD, DVT of his right lower extremity, BPH presents to the ER with chief complaint of 1 to 3 days of shortness of breath worsening today. Reports generalized overall not feeling well. He states that this feels just like my previous heart attack he denies any chest pain or back pain or abdominal pain. He is complaining of shortness of breath he is hypoxic has increased work of breathing upon arrival and tachypneic he is 86% on room air. Denies any fever chills reports some nausea no vomiting no diarrhea. Patient was placed on 3 L nasal cannula by field staff manager with O2 sat to 90 to 92%. EKG was reviewed by Dr. Peacock ER attending, please see his official report for review there was no old ECG available. There is noted to be some ST elevation in V1 and ST depressions in 2 3 aVF Cardiac work-up ordered including serial troponins, proBNP, D-dimer, PT PTT COVID swab chest x-ray 25 mg Solu-Medrol, DuoNeb, 324 mg aspirin and nitro 0.4 mg sublingual x3 Patient received 1 sublingual 0.4 mg of nitro he is not complaining of any chest pain this did bring his blood pressure down to 113 systolic. It did not seem to significantly change his symptoms. 2246: Troponin results 4890, proBNP 5000 419, CBC shows white blood cell count of 13.73 He is receiving a DuoNeb at this time O2 sat is 95%, heart rate is 87, he is received Solu-Medrol and 324 mg of aspirin. 2247: Images pushed and [place] [facility] [place] center paged for transfer request and cardiology consult. 2253: Spoke with Dr. Walker with Card[place] [facility] [place] recommends PLavix 600mg PO, Lasix 40mg -80mg IV, Heparin Gtt, VBG, Which was ordered and Listing for tomorrow when bed available. Accepting Physician Dr. Cuevas. He also suggests consider BiPap if hypercarbic. Covid Negative. 2312: Will page hospitalist for admission. 2317: Spoke with Dr. Ramos who agrees to accept patient for admission, He will come and evaluate patient. Medical Records Medical records reviewed: Yes I reviewed the patient's medical records. Imaging Data Radiologic Study: Imaging: X-Ray Radiologist's impression: Imaging protocol: XR of the chest. Views: 1 view. COMPARISON: CR XR CHEST 2V PA LATERAL 03/20/2021 1:46 PM FINDINGS: Lungs: Lungs are adequately inflated. There are patchy perihilar opacities with additional streaky bilateral perihilar opacities. There is central pulmonary vascular congestion with interstitial edema. Pleural spaces: Blunting of left costophrenic angle suggestive for trace/small left pleural effusion. No visible right pleural effusion. No pneumothorax. Heart/Mediastinum: Unchanged cardiomegaly. Bones/joints: Median sternotomy wires are in place. No acute osseous finding. IMPRESSION: 1. Cardiomegaly with central pulmonary vascular congestion interstitial edema. Correlate for history/symptoms of heart failure/fluid overload. 2. Patchy and streaky perihilar opacities may be related to suspected underlying fluid overload in related to edema, however changes of atypical infection/pneumonia versus atelectasis not excluded. Correlate clinically. Lab Data Lab results reviewed: Yes I reviewed the patient's lab results. Labs: Laboratory Tests Range/Units 12/07/21 12/07/21 12/07/21 21:50 21:57 21:57 WBC (4.4-10.8) 10^3/uL 13.73 H RBC (4.36-5.78) 10^6/uL 4.30 L Hgb (13.5-17.5) g/dL 12.6 L Hct (40.0-50.0) % 38.5 L MCV (80-95) fL 90 MCH (27.0-33.0) pg 29.3 MCHC (32.0-36.0) % 32.7 RDW (11.8-14.1) % 15.1 H Plt Count (130-400) 10^3/uL 197 MPV (8.0-11.0) fL 9.7 Immature Gran % 0.5 Neutrophils % 86.5 Lymphocytes % 4.5 Monocytes % 8.2 Eosinophils % 0.1 Basophils % 0.2 Nucleated RBC % (0.0-0.3) % 0.0 Absolute Neutrophils (1.2-6.7) 10^3/uL 11.88 H Absolute Lymphocytes (1.2-3.4) 10^3/uL 0.62 L Absolute Monocytes (0.1-0.8) 10^3/uL 1.13 H Absolute Eosinophils (0.0-0.7) 10^3/uL 0.01 Absolute Basophils (0.0-0.2) 10^3/uL 0.03 PT (9.3-11.0) sec INR (0.9-1.1) APTT (21.0-27.5) sec D-Dimer (<500) ng/mlFEU VBG pH (7.31-7.41) VBG pCO2 (41-51) mmHg VBG pO2 mmHg VBG HCO3 (23-28) mmol/L VBG Total CO2 (24-29) mmol/L VBG O2 Saturation % VBG Base Excess (-2-3) mmol/L Sodium (136-145) mmol/L 140 Potassium (3.5-5.1) mmol/L 4.2 Chloride (98-107) mmol/L 104 Carbon Dioxide (21.0-32.0) mmol/L 25.1 Anion Gap (3-11) mmol/L 10.9 BUN (7-18) mg/dL 25 H Creatinine (0.70-1.30) mg/dL 1.5 H Estimated GFR/1.73 m2 (mL/min/1.73m2) 45.62 Glucose (74-106) mg/dL 214 H Calcium (8.5-10.1) mg/dL 8.4 L Magnesium (1.8-2.4) mg/dL 1.9 Total Bilirubin (0.2-1.0) mg/dL 1.2 H AST (15-37) U/L 41 H ALT (16-63) U/L 25 Alkaline Phosphatase (46-116) U/L 86 Troponin I (<or=60) ng/L 4890 H* NT-Pro-B Natriuret Pep (<300) pg/mL 5419 H Total Protein (6.4-8.2) g/dL 7.7 Albumin (3.4-5.0) g/dL 3.5 COVID-19 Source Nasal/Nares SARS-CoV-2 (PCR) (Negative) Negative Range/Units 12/07/21 12/07/21 12/07/21 21:57 21:57 23:20 WBC (4.4-10.8) 10^3/uL RBC (4.36-5.78) 10^6/uL Hgb (13.5-17.5) g/dL Hct (40.0-50.0) % MCV (80-95) fL MCH (27.0-33.0) pg MCHC (32.0-36.0) % RDW (11.8-14.1) % Plt Count (130-400) 10^3/uL MPV (8.0-11.0) fL Immature Gran % Neutrophils % Lymphocytes % Monocytes % Eosinophils % Basophils % Nucleated RBC % (0.0-0.3) % Absolute Neutrophils (1.2-6.7) 10^3/uL Absolute Lymphocytes (1.2-3.4) 10^3/uL Absolute Monocytes (0.1-0.8) 10^3/uL Absolute Eosinophils (0.0-0.7) 10^3/uL Absolute Basophils (0.0-0.2) 10^3/uL PT (9.3-11.0) sec 16.5 H INR (0.9-1.1) 1.7 H APTT (21.0-27.5) sec 32.5 H D-Dimer (<500) ng/mlFEU 403 VBG pH (7.31-7.41) 7.44 H VBG pCO2 (41-51) mmHg 38 L VBG pO2 mmHg 49 VBG HCO3 (23-28) mmol/L 26 VBG Total CO2 (24-29) mmol/L 23 L VBG O2 Saturation % 83 VBG Base Excess (-2-3) mmol/L 1 Sodium (136-145) mmol/L Potassium (3.5-5.1) mmol/L Chloride (98-107) mmol/L Carbon Dioxide (21.0-32.0) mmol/L Anion Gap (3-11) mmol/L BUN (7-18) mg/dL Creatinine (0.70-1.30) mg/dL Estimated GFR/1.73 m2 (mL/min/1.73m2) Glucose (74-106) mg/dL Calcium (8.5-10.1) mg/dL Magnesium (1.8-2.4) mg/dL Total Bilirubin (0.2-1.0) mg/dL AST (15-37) U/L ALT (16-63) U/L Alkaline Phosphatase (46-116) U/L Troponin I (<or=60) ng/L NT-Pro-B Natriuret Pep (<300) pg/mL Total Protein (6.4-8.2) g/dL Albumin (3.4-5.0) g/dL COVID-19 Source SARS-CoV-2 (PCR) (Negative) HPI General Mode of arrival: wheelchair . Date/Time Provider Initiated Documentation: 12/07/21 21:30 . Limitations to Documentation: no limitations . Information obtained by: patient, family (), RN notes reviewed and old records reviewed . HPI Narrative: 76-year-old male past medical history of trailer of STEMI, recent CABG June 2017, Smith's esophagus, hypertension, ischemic cardiomyopathy, peripheral neuropathy, type 2 diabetes, atrial fibrillation on chronic anticoagulation on warfarin, obesity, obstructive sleep apnea, hyperlipidemia, GERD, DVT of his right lower extremity, BPH presents to the ER with chief complaint of 1 to 3 days of shortness of breath worsening today. Reports generalized overall not feeling well. He states that this feels just like my previous heart attack he denies any chest pain or back pain or abdominal pain. He is complaining of shortness of breath he is hypoxic has increased work of breathing upon arrival and tachypneic he is 86% on room air. Denies any fever chills reports some nausea no vomiting no diarrhea. Patient was placed on 3 L nasal cannula by field staff manager with O2 sat to 90 to 92%. Related Data Home Medications Medication Instructions Recorded Confirmed blood-glucose meter #1 ea 07/24/14 10/14/21 lancets 33 gauge (BD Ultra Fine ##400 10/25/17 10/14/21 Lancets) acetaminophen 650 mg 2 tab PO BID PRN 11/02/17 12/07/21 tablet,extended release turmeric root extract 500 mg 500 mg PO BID 12/13/18 12/07/21 capsule magnesium oxide 500 mg capsule 500 mg PO DAILY #180 tabs 10/28/20 12/07/21 ascorbic acid (vitamin C) 500 mg 500 mg PO DAILY 12/31/20 12/07/21 tablet (Vitamin C) blood sugar diagnostic (Blood #400 strips 03/25/21 10/14/21 Glucose Test strips) ferrous sulfate 325 mg (65 mg 325 mg PO .4 day per week 03/27/21 12/07/21 iron) tablet atorvastatin 10 mg tablet 10 mg PO .COMPLEX #90 tab-caps 03/28/21 12/07/21 aspirin 81 mg chewable tablet 81 mg PO .2 days/week 04/14/21 12/07/21 insulin glargine 100 unit/mL (3 35 unit (0.35 mL) subcut DAILY #30 04/14/21 12/07/21 mL) subcutaneous pen (Lantus mL Solostar U-100 Insulin) levothyroxine 175 mcg tablet 175 mcg PO DAILY #90 tab-caps 04/14/21 12/07/21 losartan 100 mg tablet 100 mg PO DAILY #90 tabs 04/14/21 12/07/21 furosemide 20 mg tablet 20 mg PO DAILY #90 tab-caps 04/24/21 12/07/21 pen needle, diabetic 31 gauge x ##400 05/08/21 10/14/2112/08 (Pen Needle) warfarin 2.5 mg tablet See Rx Instructions PO QPM #600 05/08/21 12/07/21 tab-caps metformin 850 mg tablet 850 mg PO BID #180 tabs 07/14/21 12/07/21 metoprolol succinate 50 mg 50 mg PO DAILY #90 tabs 07/14/21 12/07/21 tablet,extended release 24 hr clobetasol 0.05 % scalp solution 1 applic topical DAILY PRN rash 09/01/21 12/07/21 #50 mL amlodipine 5 mg tablet 5 mg PO DAILY #90 tabs 10/14/21 12/07/21 insulin lispro 100 unit/mL 25 unit (0.25 mL) subcut AC #30 mL 12/02/21 12/07/21 subcutaneous pen (Humalog KwikPen (U-100) Insulin) Previous Rx's Medication Instructions Recorded lancets 33 gauge (BD Ultra Fine ##400 10/25/17 Lancets) blood sugar diagnostic (Blood #400 strips 03/25/21 Glucose Test strips) atorvastatin 10 mg tablet 10 mg PO .COMPLEX #90 tab-caps 03/28/21 insulin glargine 100 unit/mL (3 35 unit (0.35 mL) subcut DAILY #30 04/14/21 mL) subcutaneous pen (Lantus mL Solostar U-100 Insulin) levothyroxine 175 mcg tablet 175 mcg PO DAILY #90 tab-caps 04/14/21 losartan 100 mg tablet 100 mg PO DAILY #90 tabs 04/14/21 furosemide 20 mg tablet 20 mg PO DAILY #90 tab-caps 04/24/21 pen needle, diabetic 31 gauge x ##400 05/08/2112/08 (Pen Needle) warfarin 2.5 mg tablet See Rx Instructions PO QPM #600 05/08/21 tab-caps metformin 850 mg tablet 850 mg PO BID #180 tabs 07/14/21 metoprolol succinate 50 mg 50 mg PO DAILY #90 tabs 07/14/21 tablet,extended release 24 hr clobetasol 0.05 % scalp solution 1 applic topical DAILY PRN rash 09/01/21 #50 mL amlodipine 5 mg tablet 5 mg PO DAILY #90 tabs 10/14/21 insulin lispro 100 unit/mL 25 unit (0.25 mL) subcut AC #30 mL 12/02/21 subcutaneous pen (Humalog KwikPen (U-100) Insulin) Allergies Allergy/AdvReac Type Severity Reaction Status Date / Time lisinopril AdvReac cough Verified 12/07/21 21:29 General Stated Complaint: SOB RENETTA: 2 Review of Systems All systems reviewed & are unremarkable except as noted in HPI and below Constitutional Constitutional: Reports as per HPI Cardiovascular Cardiovascular: Denies chest pain, Denies chest pain at rest, Denies chest pain with activity, Reports rapid heart rate, Reports dyspnea, Reports dyspnea on exertion and Reports orthopnea Respiratory Respiratory: Reports dyspnea and Reports dyspnea on exertion Gastrointestinal Gastrointestinal: Denies abdominal pain, Denies diarrhea, Reports nausea and Denies vomiting Neurologic Neurologic: Denies convulsions PFSH All Active Problems (Updated 12/08/21 @ 00:05 by KELVIN DAVENPORT) Renal function impairment (Chronic) Impacted cerumen, bilateral (Acute) Diarrhea (Acute) Dizziness (Acute) Primary osteoarthritis, left hand (Acute) Conductive hearing loss, external ear (Acute) Diarrhea (Acute) Restless legs (Acute 03/13/13) Afib (Chronic) Chronic anticoagulation (Acute) Urinary retention (Chronic 06/28/14) Type 2 diabetes mellitus with hyperglycemia (Chronic 12/24/15) Tubular adenoma of colon (Chronic 07/03/14) 01/06 Sleep apnea (Chronic) study 02/06/14-severe obstructive sleep apnea; CPAP Sensorineural hearing loss, bilateral (Chronic 11/28/12) Dr Vega; B/L hearing aids Psoriasis (Chronic 03/13/13) 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) [facility] Hypothyroidism associated with surgical procedure (Chronic 04/10/14) 03/[place] [facility] [place]: papillary carcinoma Peripheral neuropathy (Chronic 01/03/15) Nontoxic multinodular goiter (Chronic 09/12/12) Malignant melanoma of skin (Chronic 09/12/12) [facility] [place] F/U IN SEPTEMBER 2012 & annually [place]AN[place] TO BACK Left carpal tunnel syndrome (Chronic 06/30/17) Ischemic cardiomyopathy (Chronic 07/05/17) 07/05/17 LVEF=29% Hypomagnesemia (Chronic 04/18/13) Clinically manifested with leg cramps; initiated Mg++ Oxide 03/2013 Heartburn (Chronic 03/13/13) PPI prn Nisson fundiplication 06/08 Essential hypertension (Chronic 11/07/12) Diabetic neuropathy (Chronic 06/28/14) Depression (Chronic) 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 Taylor letter GE junction; pending path results BPH NOS w/o ur obs/LUTS (Chronic) ASHD (arteriosclerotic heart disease) (Chronic 07/05/17) 07[place] [place] [facility] Medical History (Updated 12/08/21 @ 00:05 by KELVIN DAVENPORT) Anemia (07/23/14) BPH (benign prostatic hyperplasia) Bruising (03/07/18) on coumadin Carpal tunnel syndrome on both sides 01/22/15 Cerumen debris on tympanic membrane of right ear Confusion 08/03/17 Deep vein thrombosis (DVT) of tibial vein of right lower extremity 08/03/17 unspecified chronicity partial occlusion 07/29/17 Diabetes mellitus Functional disorder of stomach 09/12/12 GERD (gastroesophageal reflux disease) History of tobacco use Quit 1970s Hyperlipemia Hypertension Ischemic leg 09/02/17 Malignant melanoma of skin, unspecified in situ; neg. sentinel node Night cramps 04/11/13 Obesity MARIA VICTORIA (obstructive sleep apnea) Pain at injection site Papillary thyroid carcinoma 03/30/1302/2013 s/p thyroidectomy with [place] [facility]kn[facility] [place] Delc[place] f/[place] [facility] [place] Papillary thyroid carcinoma (03/30/13) Restless legs 03/03/13 requip STEMI (ST elevation myocardial infarction) 07/05/17 UTI (urinary tract infection) Surgical History Colonoscopy - [facility] [place]/16/[place] [place] - [facility] (03/05/14) H/O esophagogastroduodenoscopy 07/26/13 Open Carpal Tunnel release 04/03/16- RIGHT S/P carpal tunnel release 04/03/16 right S/P thyroidectomy 07/26/12 [facility] [place] S/P trigger finger release 04/03/16 trigger little finger of right hand Thyroidectomy, 2012 [facility] [place] Manny Mcknight Trigger Finger release 04/03/16; RIGHT SMALL FINGER Family History Mother Alcohol abuse Father , 82? Diabetes Brother , 47 Alcohol abuse Lung cancer Maternal Grandfather , 80? No problems noted. Paternal Grandfather No problems noted. Maternal Grandmother , 78? Cancer Paternal Grandmother No problems noted. Son Substance abuse Daughter No problems noted. Social History Smoking/Tobacco Use Status: Former Tobacco Use tobacco type: cigarettes Quit Date: 07/26/77 Tobacco: How many years used: 15 Second Hand Exposure: Yes Smoking risk assessment performed?: Yes Alcohol Intake: former Drug use: Never Substance use type: does not use Counseling given: No Caregiver/Support person: No Household members: spouse Housing: house Communication Needs: Hard of Hearing Do you need help understanding health information?: Often current occupation: WORKING AT [employer]. Pets and animals: Yes Pets and animals: dog(s) Sexually active: No Do you think of yourself as: straight/heterosexual Current gender identity: male What is your relationship status?: How often do you talk on the phone with friends or family?: three or more times per week How often do you get together with friends or relatives?: twice per week How often do you attend alevism or yarsanism services?: 4 or more times per year Do you belong to any clubs or organized social groups?: yes Panel score (0-1 are the most socially isolated patients): 4 What type of physical activity do you participate in: walking Duration: 15-30 minutes/day Frequency: daily Adelina/Mu-Ism: Sikhism Special adelina needs: No Seatbelt use: always Helmet use: Yes Helmet use: sometimes Drive intox or ride w/intox wheelchair driver: No Do you feel safe at home: Yes Do you feel safe in your relationship?: Yes Exam Narrative Exam Narrative: Constitutional: Alert and oriented x3. Appears stated age. Obese body habitus. Increased work of breathing, tachypnea. Head: Normocephalic, no trauma. Eyes: Pupils PERRL, Red reflex noted, EOM's intact. Eyelids symmetrical without lesions, discharge, or swelling. ENT: Bilateral TM's WNL, External ear normal to inspection, no mastoid TTP, swelling, or erythema, Nasal turbinates WNL, no nasal discharge. Normal dentition, Posterior pharynx WNL, no exudate. Chest: RRR, Normal S1, S2, distal pulses intact. Resp: Lungs diminished to auscultation bilaterally Abdomen: Soft, non-distended, Normoactive bowel sounds all 4 quads. Musculoskeletal: Unable to assess gait, 5/5 strength to all four extremities. No significant pitting edema noted bilateral lower extremities, does have Chronic appearing vascularity Skin: No suspicious rashes or lesions. Capillary refill less than 2 sec. Neurologic: Cranial nerves II-XII intact. Alert and oriented x 3. Motor: No deficits noted. Sensory: Intact bilaterally all 4 extremities. Reflexes: DTR's intact bilaterally.. Hematologic/Lymphatic: No ecchymosis, no lymphadenopathy. Course Vital Signs Vital signs: Vital Signs Temperature 36.6 C 12/07/21 21:24 Pulse 107 H 12/07/21 21:24 Respiratory Rate 22 12/07/21 21:24 Blood Pressure 151/80 H 12/07/21 21:24 Pulse Oximetry 86 L 12/07/21 21:24 Temperature 36.6 C 12/07/21 21:24 Temperature Source Skin 12/07/21 21:24 Pulse 107 H 12/07/21 21:24 Respiratory Rate 33 H 12/07/21 21:34 Respiratory Effort 12/07/21 21:34 Respiratory Depth Normal 12/07/21 21:34 Respiratory Pattern Tachypnea 12/07/21 21:34 Blood Pressure 151/80 H 12/07/21 21:24 Blood Pressure Position Sitting 12/07/21 21:24 Pulse Oximetry 92 12/07/21 21:45 Oxygen Delivery Method Nasal Cannula 12/07/21 21:45 Oxygen Flow Rate 3 12/07/21 21:45 Pain Level 0 12/07/21 21:24 Critical Care Time Critical Care Time Critical Care Time: Yes Total Critical Care Time: 40 Attestation: I spent greater than 35 minutes addressing this patient's acute life threatening illness. This time was spent engaged in actions directly related to the patient's care. Failure to initiate these interventions would have likely resulted in clinically significant or life threatening deterioration in the patients condition.
--- NOTE | 2021-12-07 22:00 | RT.EKG_ITS ---
APPROVED REPORT Exam: Resting ECG Reason for Exam: chest pain Patient Location: E HR:97 bpm ECG Measurements Heart Rate 97 AXIS MD 214 P 80 QRSd 103 QRS -55 QT 368 T 107 QTc 467 Conclusion Sinus rhythm...normal P axis, V-rate 60- 99 Borderline prolonged MD interval...MD >207, V-rate 91-120 LAD, consider left anterior fascicular block...axis(240,-40), S>R II III aVF Anterolateral infarct, old...Q>40mS, abnrm ST-T, V3-V6,I,aVL Physician: no stemi, slight less than 1mm elevation in V1 and V2, no stemi, minimal depression in II and V5 and V6
[2021-12-07 22:12] LABS: Source Nasal/Nares
[2021-12-07] MEDS: methylPREDNISolone SUCC 125 MG VIAL IVP (22:18)
[2021-12-07] MEDS: Albuterol/Ipratropium 3 ML UPD VIAL UPD (22:18)
[2021-12-07] MEDS: Aspirin 81 MG CHEW 324 MG CH (22:19)
[2021-12-07] MEDS: nitroGLYcerin 0.4 MG TAB SL (22:19)
[2021-12-07 22:24] LABS: Abs Immature Grans 0.07 10^3/uL (0.0-0.06); Absolute Basophil Count 0.03 10^3/uL (0.0-0.2); Absolute Eosinophil Count 0.01 10^3/uL (0.0-0.7); Absolute Lymphocyte Count 0.62 10^3/uL (1.2-3.4); Absolute Neutrophil Count 11.88 10^3/uL (1.2-6.7); Basophils % 0.2; Eosinophils % 0.1; HCT 38.5 % (40.0-50.0); HGB 12.6 g/dL (13.5-17.5); Immature Grans % 0.5; Lymphocytes % 4.5; MCH 29.3 pg (27.0-33.0); MCHC 32.7 % (32.0-36.0); MCV 90 fL (80-95); MPV 9.7 fL (8.0-11.0); Monocytes % 8.2; Neutrophils % 86.5; Platelet Count 197 10^3/uL (130-400); RDW 15.1 % (11.8-14.1); RDW-SD 49.4 fL; WBC 13.73 10^3/uL (4.4-10.8)
[2021-12-07 22:25] LABS: Absolute Monocyte Count 1.13 10^3/uL (0.1-0.8)
[2021-12-07 22:39] LABS: ALT 25 U/L (16-63); AST 41 U/L (15-37); Albumin 3.5 g/dL (3.4-5.0); Alkaline Phosphatase 86 U/L (46-116); Anion Gap 10.9 mmol/L (3-11); BUN 25 mg/dL (7-18); Bilirubin, Total 1.2 mg/dL (0.2-1.0); CO2 25.1 mmol/L (21.0-32.0); CREATININE 1.5 mg/dL (0.70-1.30); Calcium 8.4 mg/dL (8.5-10.1); Chloride 104 mmol/L (98-107); Estimated GFR 45.62 (mL/min/1.73m2); Glucose 214 mg/dL (74-106); Magnesium 1.9 mg/dL (1.8-2.4); NT-proBNP 5419 pg/mL (<300); Potassium 4.2 mmol/L (3.5-5.1); Sodium 140 mmol/L (136-145); Total Protein 7.7 g/dL (6.4-8.2)
[2021-12-07 22:40] LABS: Troponin I 4890 ng/L (<or=60)
[2021-12-07 22:52] LABS: INR 1.7 (0.9-1.1); PTT Activated 32.5 sec (21.0-27.5); Prothrombin Time 16.5 sec (9.3-11.0)
--- NOTE | 2021-12-07 22:58 | DI.VRAD_ITS ---
PROCEDURE INFORMATION: Exam: XR Chest Exam date and time: 12/07/2021 10:03 PM Age: 76 years old Clinical indication: Shortness of breath; Prior surgery; Surgery date: 6+ months; Surgery type: Cabg, SOB TECHNIQUE: Imaging protocol: XR of the chest. Views: 1 view. COMPARISON: CR XR CHEST 2V PA LATERAL 03/20/2021 1:46 PM FINDINGS: Lungs: Lungs are adequately inflated. There are patchy perihilar opacities with additional streaky bilateral perihilar opacities. There is central pulmonary vascular congestion with interstitial edema. Pleural spaces: Blunting of left costophrenic angle suggestive for trace/small left pleural effusion. No visible right pleural effusion. No pneumothorax. Heart/Mediastinum: Unchanged cardiomegaly. Bones/joints: Median sternotomy wires are in place. No acute osseous finding. IMPRESSION: 1. Cardiomegaly with central pulmonary vascular congestion interstitial edema. Correlate for history/symptoms of heart failure/fluid overload. 2. Patchy and streaky perihilar opacities may be related to suspected underlying fluid overload in related to edema, however changes of atypical infection/pneumonia versus atelectasis not excluded. Correlate clinically. Dictated and Authenticated by: Ruben Diaz MD. Ordering:ALEJANDRA Antonio MD
[2021-12-07 23:06] LABS: D-Dimer 403 ng/mlFEU (<500)
[2021-12-07 23:08] LABS: COVID-19 PCR Negative (Negative)
[2021-12-07] MEDS: Furosemide 40 MG/4 ML VIAL IVP (23:17)
[2021-12-07] MEDS: Clopidogrel 300 MG TAB 600 MG PO (23:17)
[2021-12-07 23:24] LABS: BE (Venous) 1 mmol/L (-2-3); HCO3 (Venous) 26 mmol/L (23-28); O2 Sat (Venous) 83 %; TCO2 (Venous) 23 mmol/L (24-29); pCO2 (Venous) 38 mmHg (41-51); pH (Venous) 7.44 (7.31-7.41); pO2 (Venous) 49 mmHg
--- NOTE | 2021-12-07 23:46 | W.PM.HP.N ---
Date of service: 12/07/21 Time of Service: 22:46 Assessment and Plan Assessment and plan (1) Non-ST elevation NH (NSTEMI): Status: Acute Assessment and plan: NSTEMI, probably several days in. Complicated by CHF. Hemodynamics satisfactory at present. 1. NSTEMI: continue DUAP and heparin qtt (will hold Coumadin); will add low dose beta chadwick; [place] [facility] [place] will [place] NPO, will repeat AM troponin 2. CHF: trial Lasix as above 3. DM: hold insulin (already took this evening's dose Lantus) and cover with SS as needed Reviewed ADs, requests Full Code History of Present Illness History of Present Illness Chief Complaint: SOB Narrative: 76 male with PVD, DM, CAD, s/p NH 2017, s/p CABG. NH in 2017 presented with SOB. Here tonight with 2-3 days of SOB and orthopnea. No CP. No ankle swelling. In ER finings of note for initial RA sat 86%. Trop >4000, EKG with old AMI, [address] elevation V1 and TW inversions I and AVL; EKG essentially unchanged from baseline. BNP>5000 and CXR shows moderate pulmonary edema. [place] [facility] [place] for tomorrow as NSTEMI. Patient given 40 Lasix IVP, [id number], Plavix 600 and started heparin qtt (note he is on Coumadin for AF, evidently paroxysmal, and INR 1.7). At present time patient states he feels fine. Review of Systems Narrative: per HPI PFSH All Active Problems Non-ST elevation NH (NSTEMI) (Acute) Renal function impairment (Chronic) Impacted cerumen, bilateral (Acute) Diarrhea (Acute) Dizziness (Acute) Primary osteoarthritis, left hand (Acute) Conductive hearing loss, external ear (Acute) Diarrhea (Acute) Restless legs (Acute 03/13/13) Afib (Chronic) Chronic anticoagulation (Acute) Urinary retention (Chronic 06/28/14) Type 2 diabetes mellitus with hyperglycemia (Chronic 12/24/15) Tubular adenoma of colon (Chronic 07/03/14) 01/06 Sleep apnea (Chronic) study 02/06/14-severe obstructive sleep apnea; CPAP Sensorineural hearing loss, bilateral (Chronic 11/28/12) Dr Vega; B/L hearing aids Psoriasis (Chronic 03/13/13) 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) [facility] Hypothyroidism associated with surgical procedure (Chronic 04/10/14) 03/2013 [facility] [place]: papillary carcinoma Peripheral neuropathy (Chronic 01/03/15) Nontoxic multinodular goiter (Chronic 09/12/12) Malignant melanoma of skin (Chronic 09/12/12) [facility] [place] [facility]; HAS F/U IN SEPTEMBER 2012 & annually [place] TO BACK Left carpal tunnel syndrome (Chronic 06/30/17) Ischemic cardiomyopathy (Chronic 07/05/17) 07/05/17 LVEF=29% Hypomagnesemia (Chronic 04/18/13) Clinically manifested with leg cramps; initiated Mg++ Oxide 03/2013 Heartburn (Chronic 03/13/13) PPI prn Nisson fundiplication 06/08 Essential hypertension (Chronic 11/07/12) Diabetic neuropathy (Chronic 06/28/14) Depression (Chronic) 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 Taylor letter GE junction; pending path results BPH NOS w/o ur obs/LUTS (Chronic) ASHD (arteriosclerotic heart disease) (Chronic 07/05/17) 07[place]05/[place] [place] [facility]; Medical History Anemia (07/23/14) BPH (benign prostatic hyperplasia) Bruising (03/07/18) on coumadin Carpal tunnel syndrome on both sides 01/22/15 Cerumen debris on tympanic membrane of right ear Confusion 08/03/17 Deep vein thrombosis (DVT) of tibial vein of right lower extremity 08/03/17 unspecified chronicity partial occlusion 07/29/17 Diabetes mellitus Functional disorder of stomach 09/12/12 GERD (gastroesophageal reflux disease) History of tobacco use Quit 1970s Hyperlipemia Hypertension Ischemic leg 09/02/17 Malignant melanoma of skin, unspecified in situ; neg. sentinel node Night cramps 04/11/13 Obesity MARIA VICTORIA (obstructive sleep apnea) Pain at injection site Papillary thyroid carcinoma 03/30/1302/2013 s/p thyroidectomy with Vernon Mcknight [facility] [place] Delcid cancer [place] [facility] [place] Papillary thyroid carcinoma (03/30/13) Restless legs 03/03/13 requip STEMI (ST elevation myocardial infarction) 07/05/17 UTI (urinary tract infection) Surgical History Colonoscopy - [facility] [place]16/14[place] [place]GD - MAC (03/05/14) H/O esophagogastroduodenoscopy 07/26/13 Open Carpal Tunnel release 04/03/16- RIGHT S/P carpal tunnel release 04/03/16 right S/P thyroidectomy 07/26/12 [facility] [place] S/P trigger finger release 04/03/16 trigger little finger of right hand Thyroidectomy, 2012 [facility] [place] Manny Mcknight Trigger Finger release 04/03/16; RIGHT SMALL FINGER Family History Mother Alcohol abuse Father , 82? Diabetes Brother , 47 Alcohol abuse Lung cancer Maternal Grandfather , 80? No problems noted. Paternal Grandfather No problems noted. Maternal Grandmother , 78? Cancer Paternal Grandmother No problems noted. Son Substance abuse Daughter No problems noted. Social History Smoking/Tobacco Use Status: Former Tobacco Use tobacco type: cigarettes Quit Date: 07/26/77 Tobacco: How many years used: 15 Second Hand Exposure: Yes Smoking risk assessment performed?: Yes Alcohol Intake: former Drug use: Never Substance use type: does not use Counseling given: No Caregiver/Support person: No Household members: spouse Housing: house Communication Needs: Hard of Hearing Do you need help understanding health information?: Often current occupation: WORKING AT [employer]. Pets and animals: Yes Pets and animals: dog(s) Sexually active: No Do you think of yourself as: straight/heterosexual Current gender identity: male What is your relationship status?: How often do you talk on the phone with friends or family?: three or more times per week How often do you get together with friends or relatives?: twice per week How often do you attend anglican or sikh services?: 4 or more times per year Do you belong to any clubs or organized social groups?: yes Panel score (0-1 are the most socially isolated patients): 4 What type of physical activity do you participate in: walking Duration: 15-30 minutes/day Frequency: daily Adelina/Zoroastrianism: Restorationist Special adelina needs: No Seatbelt use: always Helmet use: Yes Helmet use: sometimes Drive intox or ride w/intox utility worker driver: No Do you feel safe at home: Yes Do you feel safe in your relationship?: Yes Meds Allergies and Home Medications Allergies Allergy/AdvReac Type Severity Reaction Status Date / Time lisinopril AdvReac cough Verified 12/07/21 21:29 Home Medications Medication Instructions Recorded Confirmed Type blood-glucose meter #1 ea 07/24/14 10/14/21 History lancets 33 gauge (BD Ultra Fine ##400 10/25/17 10/14/21 Rx Lancets) acetaminophen 650 mg 2 tab PO BID PRN 11/02/17 12/07/21 History tablet,extended release turmeric root extract 500 mg 500 mg PO BID 12/13/18 12/07/21 History capsule magnesium oxide 500 mg capsule 500 mg PO DAILY #180 tabs 10/28/20 12/07/21 History ascorbic acid (vitamin C) 500 mg 500 mg PO DAILY 12/31/20 12/07/21 History tablet (Vitamin C) blood sugar diagnostic (Blood #400 strips 03/25/21 10/14/21 Rx Glucose Test strips) ferrous sulfate 325 mg (65 mg 325 mg PO .4 day per week 03/27/21 12/07/21 History iron) tablet atorvastatin 10 mg tablet 10 mg PO .COMPLEX #90 tab-caps 03/28/21 12/07/21 Rx aspirin 81 mg chewable tablet 81 mg PO .2 days/week 04/14/21 12/07/21 History insulin glargine 100 unit/mL (3 35 unit (0.35 mL) subcut DAILY #30 04/14/21 12/07/21 Rx mL) subcutaneous pen (Lantus mL Solostar U-100 Insulin) levothyroxine 175 mcg tablet 175 mcg PO DAILY #90 tab-caps 04/14/21 12/07/21 Rx losartan 100 mg tablet 100 mg PO DAILY #90 tabs 04/14/21 12/07/21 Rx furosemide 20 mg tablet 20 mg PO DAILY #90 tab-caps 04/24/21 12/07/21 Rx pen needle, diabetic 31 gauge x ##400 05/08/21 10/14/21 Rx 5/16 (Pen Needle) warfarin 2.5 mg tablet See Rx Instructions PO QPM #600 05/08/21 12/07/21 Rx tab-caps metformin 850 mg tablet 850 mg PO BID #180 tabs 07/14/21 12/07/21 Rx metoprolol succinate 50 mg 50 mg PO DAILY #90 tabs 07/14/21 12/07/21 Rx tablet,extended release 24 hr clobetasol 0.05 % scalp solution 1 applic topical DAILY PRN rash 09/01/21 12/07/21 Rx #50 mL amlodipine 5 mg tablet 5 mg PO DAILY #90 tabs 10/14/21 12/07/21 Rx insulin lispro 100 unit/mL 25 unit (0.25 mL) subcut AC #30 mL 12/02/21 12/07/21 Rx subcutaneous pen (Humalog KwikPen (U-100) Insulin) Exam Narrative Exam Narrative: 123/77, 89, 36.6, 23, 95% $L NC. HEENT atraumatic; neck supple, cannot read JVP; lungs basilar rales; heart RRR w/o MRG; abdomen soft and NT; extremities w/o pedal edema; pedal pulses weak on left, non-palpable on right, s/p md-tarsal amp on right; neuro Ox3, lucid, moves all 4s Results Labs Result diagrams: 12/07/21 21:57 12/07/21 21:57 Labs: Laboratory Results - last 24 hr 12/07/21 12/07/21 12/07/21 21:50 21:57 21:57 WBC 13.73 H RBC 4.30 L Hgb 12.6 L Hct 38.5 L MCV 90 MCH 29.3 MCHC 32.7 RDW 15.1 H Plt Count 197 MPV 9.7 Immature Gran % 0.5 Neutrophils % 86.5 Lymphocytes % 4.5 Monocytes % 8.2 Eosinophils % 0.1 Basophils % 0.2 Nucleated RBC % 0.0 Absolute Neutrophils 11.88 H Absolute Lymphocytes 0.62 L Absolute Monocytes 1.13 H Absolute Eosinophils 0.01 Absolute Basophils 0.03 PT INR APTT D-Dimer VBG pH VBG pCO2 VBG pO2 VBG HCO3 VBG Total CO2 VBG O2 Saturation VBG Base Excess Sodium 140 Potassium 4.2 Chloride 104 Carbon Dioxide 25.1 Anion Gap 10.9 BUN 25 H Creatinine 1.5 H Estimated GFR/1.73 m2 45.62 Glucose 214 H Calcium 8.4 L Magnesium 1.9 Total Bilirubin 1.2 H AST 41 H ALT 25 Alkaline Phosphatase 86 Troponin I 4890 H* NT-Pro-B Natriuret Pep 5419 H Total Protein 7.7 Albumin 3.5 COVID-19 Source Nasal/Nares SARS-CoV-2 (PCR) Negative 12/07/21 12/07/21 12/07/21 21:57 21:57 23:20 WBC RBC Hgb Hct MCV MCH MCHC RDW Plt Count MPV Immature Gran % Neutrophils % Lymphocytes % Monocytes % Eosinophils % Basophils % Nucleated RBC % Absolute Neutrophils Absolute Lymphocytes Absolute Monocytes Absolute Eosinophils Absolute Basophils PT 16.5 H INR 1.7 H APTT 32.5 H D-Dimer 403 VBG pH 7.44 H VBG pCO2 38 L VBG pO2 49 VBG HCO3 26 VBG Total CO2 23 L VBG O2 Saturation 83 VBG Base Excess 1 Sodium Potassium Chloride Carbon Dioxide Anion Gap BUN Creatinine Estimated GFR/1.73 m2 Glucose Calcium Magnesium Total Bilirubin AST ALT Alkaline Phosphatase Troponin I NT-Pro-B Natriuret Pep Total Protein Albumin COVID-19 Source SARS-CoV-2 (PCR) Last Vital Signs Temp 36.6 C 12/07/21 21:24 Pulse 86 12/07/21 22:46 Resp 23 12/07/21 22:50 BP 123/77 12/07/21 22:46 Pulse Ox 95 12/07/21 22:50
[2021-12-08] VITALS (12 sets, daily range): BP systolic 96–125; BP diastolic 48–70; PULSE 69–85; RESP 17–25; TEMP 36.6–37.3; O2SAT 90–95
--- NOTE | 2021-12-08 | DI.US_ITS ---
APPROVED REPORT EXAM: Comprehensive 2D, Doppler, and color-flow Echocardiogram Patient Location: In-Patient Room/Bed: [id number] Machine Greaser: La Nena Orourke RDCS (AE) Indications: NSTEMI Echo Enhancing Agent Indication: Endocardial border delineation Agent(s) / Amount(s) Used: Definity 2.0 cc Other Information Study Quality: Fair. Technically limited study due to body habitus. Conclusion Mildly dilated left ventricle. Borderline concentric left ventricular hypertrophy. Estimated ejecti on fraction is approximately 35%. There is segmental wall motion abnormalities involving the inferoa pical, apical and posterior sam Right ventricle is not well visualized. Right atrium is not well visualized Left atrium is mildly dilated Aortic valve sclerosis with trivial regurgitation. No aortic stenosis. Aortic valve is trileaflet Mitral annular calcification with mild to moderate regurgitation Normal tricuspid valve with mild regurgitation. Estimated right ventricular systolic pressure is 62 mmHg Wall motion Left Ventricle Left ventricle is mildly dilated. Left ventricular systolic function is moderately decreased. Definit y microbubble contrast injection was given. Borderline concentric left ventricular hypertrophy. Infer oapical, apical, posterior akinesis There is no ventricular septal defect visualized. LVEF is 36%. Right Ventricle Right ventricle is not well visualized. Right ventricular systolic function could not be assessed. Th e RVSP is 61.8 mmHg. Atria Left atrium is mildly dilated. Right atrium is not well visualized. The interatrial septum is intact with no evidence for an atrial septal defect. Aortic Valve The Aortic valve is sclerotic. Aortic valve is trileaflet. There is no aortic valvular stenosis. Triv ial aortic regurgitation is present. Mitral Valve Moderate mitral annular calcification. No evidence of mitral valve stenosis. Mild to moderate mitral regurgitation. Tricuspid Valve The tricuspid valve is normal in structure. There is no tricuspid valve stenosis. Mild tricuspid regu rgitation. Pulmonic Valve The pulmonary valve is normal in structure. There is no pulmonic valvular stenosis. Mild pulmonic reg urgitation. Great Vessels The aortic root is normal in size. Ascending aorta is not well visualized. Aortic arch is not well vi sualized. The IVC collapses <50% with inspiration. Pericardium There is no pericardial effusion. 2D Dimensions IVSD d PLAX 1.24 cm M: 0.6-1.2 LV Vol A2C d MOD 210.6 mL LVPW d PLAX 1.24 cm M: 0.6 - 1.2 LV Vol A4C d MOD 245.2 mL LVID d PLAX 5.76 cm M: 4.2 - 5.8 LV EF A4C MOD 37.2 % LVDs 4.70 cm M: 2.5 - 4.0 LV EF A2C MOD 35.3 % Ao Root d 3.64 cm M: 3.1 - 3.7 LV EF Biplane MOD 34.0 % RA Area A4C 19.25 cm2 SV 76.43 mL RA Vol/ BSA A4C s A-L 26.4 mL/m2 SV Index 37.16 mL/m2 LV EF Teichholz 36.6 % LVEF (Oneill's) 33.99 % M: 52 - 72 LV Volume 167.11 mL M: 62 - 150 LV Volume Index 81.51 mL/m2 M: 34 - 74 LV Vol Biplane MOD 224.9 mL FS 17.85 % M-Mode TAPSE 1.82 cm (M/F) >1.7 LV Diastology MV E' medial 0.052 (>0.07 m/s) E/A Ratio 2.2 LV E/e MED 23.55 (<14) MV E Vmax 1.22 (0.4-1.3 m/s) MV E' lateral 0.041 (>0.1 m/s) MV A Vmax 0.55 (0.4-1.3 m/s) LV E/e LAT 29.75 (<14) MV E/A Ratio 2.19 MV E/E' medial 23.58 MV E/E' lateral 29.76 Aortic Valve LVOT Area 3.67 cm2 AoV Area Vmax 3.34 cm2 LVOT Vmax 1.01 m/s AoV Area/ BSA (Vmax) 1.62 cm2/m2 LVOT Mean Julián. 0.63 m/s YADIEL Mean Julián. 2.78 cm2 LVOT Peak Grad 4.1 mmHg YADIEL Mean Julián. Index 1.35 cm2/m2 LVOT Mean Grad 1.9 mmHg LVOT VTI 0.207 m LVOT Diam s 2.15 cm AoV Vmax 1.11 m/s Velocity Ratio 0.90 AoV Mean Julián. 0.83 m/s AoV Peak Grad 4.9 mmHg LVOT SV 75.97 mL AoV Mean Grad 3.0 mmHg AoV VTI 0.253 m AoV Area VTI 3.01 cm2 AoV Area/ BSA (VTI) 1.46 cm/m2 Mitral Valve MV DT 153 (160-240 msec) MR Vmax 3.91 m/s MV PHT 44 msec MR VTI 1.128 m MV Area PHT 4.95 cm2 MR Peak Grad 61.2 mmHg MV VTI 0.291 m MR Mean Grad 42.3 mmHg MV VTI Annulus 0.295 m MV Area VTI 2.65 (4.0-6.0 cm2) Pulmonary Valve PV Vmax 0.81 (0.5-1.5 m/s) RVOT Peak Gr. 1.64 mmHg PV Peak Grad 2.6 mmHg RVOT Mean Gr. 0.85 mmHg PV Mean Grad 1.3 mmHg RVOT VTI 0.104 m PV VTI 0.128 m RVOT Vmax 0.64 m/s Tricuspid Valve TR Peak Grad 53.7 mmHg TR Vmax 3.67 m/s RA Pressure 8.00 mmHg RVSP (TR) 61.8 mmHg
[2021-12-08] MEDS: Lactated Ringers 1,000 ML 75 ML IV (01:26)
[2021-12-08] MEDS: Metoprolol 25 MG TAB PO (01:26)
[2021-12-08 01:30] LABS: Troponin I 6924 ng/L (<or=60)
[2021-12-08] MEDS: Insulin Aspart 300 UNITS/3 ML PEN SC (06:07)
[2021-12-08 06:58] LABS: PTT Activated 40.2 sec (21.0-27.5)
--- NOTE | 2021-12-08 07:20 | W.PULMCC ---
General Date of Service Date of service: 12/08/21 Time of Service: 06:20 Reason for Admission to ICU: NSTEMI Assessment and Plan Assessment and plan (1) CHF exacerbation: Status: Acute (2) Respiratory failure with hypoxia: Status: Acute (3) Acute non-ST elevation myocardial infarction (NSTEMI): Status: Acute (4) Hypothyroidism: Status: Chronic (5) Essential hypertension: Status: Chronic (6) Ischemic cardiomyopathy: Status: Chronic (7) Heartburn: Status: Chronic (8) Diabetes: Status: Chronic Assessment and plan: This is a 76 yo man with a history of ischemic cardiomypathy s/p CABG for prior MO who is admitted to the ICU for Type 1 NSTEMI. He clinically is having some degree of CHF exacerbation but was placed on IVF after receiving Lasix for an unknown reason. I discontinued these fluids and gave him another 40 IV Lasix. His current EF is likely around 25% on bedside POCUS, but he should have a formal echo completed. I do think his troponin bump is an ischemic event and would recommend transfer for cardiac catheterization. Recommendations Pulmonary: Hypoxic respiratory failure - supplemental O2 for sats >92% Cardiac: Type 1 NTEMI - continue heparin and clopidogrel - continue home metoprolol - echocardiogram - EKG's with dynamic troponins - repeat troponin until peak - recommend transfer for cardiac cath consideration Renal: CKD - not far from baseline now - continue to monitor I&O: Intake & Output 12/05/21 12/06/21 12/07/21 12/08/21 23:59 23:59 23:59 23:59 Output Total 900 / 900 Balance -900 / -900 Weight 94.6 kg 92.3 kg Daily Fluid Goal:: negative 1 L GI Nutrition: NPO for possible procedure ice chips ok Date of Last Bowel Movement: 12/07/21 Infectious Disease: no acute concerns Hematologic: transfusion target is 8 given ACS Neurologic: no acute concerns Endocrine: Diabetes - no Lantus ordered - I would recommend giving 20U of his 35U - SSI coverage Hypothyroidism - continue home Synthroid Lines: PIV Prophylaxis: on heparin gtt Code Status: Resuscitation Status Full Code Subjective Critical and life-threatening events over the past 24 hours: This is a 76 yo man with CAD s/p CABG who presented for shortness of breath. He holds a history of ischemic cardiomypathy with his prior EF in 2017 at 29%. He is on Lasix, warfarin, and metoprolol in addition to ASA at home. He was found to have a Type I NSTEMI. He was started on a heparin infusion in addition to his Plavix and ASA. He was started on IVF, although there is also mention of a concern for CHF. His troponins have continued to rise without any obvious dynamic EKG changes. He denies chest pain or nausea, although states that at the time of his CABG he also was relatively asymptomatic. He feels well. He is on 4LPM O2 but does not wear oxygen at home. Exam Narrative Exam Narrative: POCUS 12/08/21: Good views seen. EF appears to be significantly reduced - likely around 25-30%. IVC is plump and does not have any collapse with breahting. Gen: NAD, normal respiratory effort, well-nourished HENT: PERRL, nasal turbinates normal without erythema or inflammation, moist oral mucosa, Mallampati 2, No LAD or JVD Chest: No respiratory distress, normal appearance of chest, clear to auscultation bilaterally, bibasilar crackles, normal inspiratory effort Heart: regular rate and rhythym, no murmurs, rubs or gallops Abdomen: Non-distended, soft, non tender Extremities: No clubbing, 1+ pitting edema to knee, cyanosis, rashes Neuro: AAOx3 , non focal Psych: cooperative, appropriate mental affect Most Recent VS/Results Last Vital Signs Temp 37.1 C 12/08/21 04:34 Pulse 82 12/08/21 04:34 Resp 19 12/08/21 04:34 BP 113/67 12/08/21 04:34 Pulse Ox 93 12/08/21 04:34 Laboratory Results - last 24 hr 12/07/21 12/07/21 12/07/21 21:50 21:57 21:57 WBC 13.73 H RBC 4.30 L Hgb 12.6 L Hct 38.5 L MCV 90 MCH 29.3 MCHC 32.7 RDW 15.1 H Plt Count 197 MPV 9.7 Immature Gran % 0.5 Neutrophils % 86.5 Lymphocytes % 4.5 Monocytes % 8.2 Eosinophils % 0.1 Basophils % 0.2 Nucleated RBC % 0.0 Absolute Neutrophils 11.88 H Absolute Lymphocytes 0.62 L Absolute Monocytes 1.13 H Absolute Eosinophils 0.01 Absolute Basophils 0.03 PT INR APTT D-Dimer VBG pH VBG pCO2 VBG pO2 VBG HCO3 VBG Total CO2 VBG O2 Saturation VBG Base Excess Sodium 140 Potassium 4.2 Chloride 104 Carbon Dioxide 25.1 Anion Gap 10.9 BUN 25 H Creatinine 1.5 H Estimated GFR/1.73 m2 45.62 Glucose 214 H Calcium 8.4 L Magnesium 1.9 Total Bilirubin 1.2 H AST 41 H ALT 25 Alkaline Phosphatase 86 Troponin I 4890 H* NT-Pro-B Natriuret Pep 5419 H Total Protein 7.7 Albumin 3.5 COVID-19 Source Nasal/Nares SARS-CoV-2 (PCR) Negative 12/07/21 12/07/21 12/07/21 21:57 21:57 23:20 WBC RBC Hgb Hct MCV MCH MCHC RDW Plt Count MPV Immature Gran % Neutrophils % Lymphocytes % Monocytes % Eosinophils % Basophils % Nucleated RBC % Absolute Neutrophils Absolute Lymphocytes Absolute Monocytes Absolute Eosinophils Absolute Basophils PT 16.5 H INR 1.7 H APTT 32.5 H D-Dimer 403 VBG pH 7.44 H VBG pCO2 38 L VBG pO2 49 VBG HCO3 26 VBG Total CO2 23 L VBG O2 Saturation 83 VBG Base Excess 1 Sodium Potassium Chloride Carbon Dioxide Anion Gap BUN Creatinine Estimated GFR/1.73 m2 Glucose Calcium Magnesium Total Bilirubin AST ALT Alkaline Phosphatase Troponin I NT-Pro-B Natriuret Pep Total Protein Albumin COVID-19 Source SARS-CoV-2 (PCR) 12/08/21 12/08/21 00:25 06:00 WBC RBC Hgb Hct MCV MCH MCHC RDW Plt Count MPV Immature Gran % Neutrophils % Lymphocytes % Monocytes % Eosinophils % Basophils % Nucleated RBC % Absolute Neutrophils Absolute Lymphocytes Absolute Monocytes Absolute Eosinophils Absolute Basophils PT INR APTT 40.2 H D-Dimer VBG pH VBG pCO2 VBG pO2 VBG HCO3 VBG Total CO2 VBG O2 Saturation VBG Base Excess Sodium Potassium Chloride Carbon Dioxide Anion Gap BUN Creatinine Estimated GFR/1.73 m2 Glucose Calcium Magnesium Total Bilirubin AST ALT Alkaline Phosphatase Troponin I 6924 H* NT-Pro-B Natriuret Pep Total Protein Albumin COVID-19 Source SARS-CoV-2 (PCR) Review of Systems All systems reviewed & are unremarkable except as noted in HPI and below Time spent with patient Time spent in Critical Care: 45 Time spent in Critical care included: Chart review, Documenting critically ill care, Time at immediate bedside and Discussing critically ill care with other medical staff
--- NOTE | 2021-12-08 07:45 | RT.EKG_ITS ---
APPROVED REPORT Exam: Resting ECG Reason for Exam: troponin elevation Patient Location: I HR:73 bpm ECG Measurements Heart Rate 73 AXIS [place] 184 P 25 QRSd 97 QRS -51 QT 441 T 131 QTc 486 Conclusion Sinus rhythm...normal P axis, V-rate 50- 99 Probable left atrial enlargement...P >50mS, <-0.10mV V1 LAD, consider left anterior fascicular block...axis(240,-40), S>R II III aVF Anterolateral infarct, old...Q>40mS, abnrm ST-T, V3-V6,I,aVL
[2021-12-08 07:49] LABS: Troponin I 8004 ng/L (<or=60)
[2021-12-08] MEDS: Levothyroxine 175 MCG TAB PO (08:25)
[2021-12-08] MEDS: Aspirin 325 MG TAB PO (08:25)
[2021-12-08] MEDS: Metoprolol CR 50 MG TABCR PO (08:25)
[2021-12-08] MEDS: Clopidogrel 75 MG TAB PO (08:25)
[2021-12-08] MEDS: Furosemide 40 MG/4 ML VIAL IVP (08:59)
--- NOTE | 2021-12-08 09:26 | INITIAL_ITS ---
- If Service Date Differs Date of service: 12/08/21 Time of Service: 09:26 Care Management Initial Assess REASON FOR HOSPITALIZATION:: NSTEMI PAST MEDICAL HISTORY/PAST SURGICAL HISTORY:: All Active Problems . Non-ST elevation HI (NSTEMI) (Acute). Renal function impairment (Chronic). Impacted cerumen, bilateral (Acute). Diarrhea (Acute). Dizziness (Acute). Primary osteoarthritis, left hand (Acute). Conductive hearing loss, external ear (Acute). Diarrhea (Acute). Restless legs (Acute 03/13/13). Afib (Chronic). Chronic anticoagulation (Acute). Urinary retention (Chronic 06/28/14). Type 2 diabetes mellitus with hyperglycemia (Chronic 12/24/15). Tubular adenoma of colon (Chronic 07/03/14). 01/06. Sleep apnea (Chronic). study 02/06/14-severe obstructive sleep apnea; CPAP. Sensorineural hearing loss, bilateral (Chronic 11/28/12). Dr Vega; B/L hearing aids. Psoriasis (Chronic 03/13/13). Scalp. 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 [facility]. Hypothyroidism associated with surgical procedure (Chronic 04/10/14). 03/2013 [facility] thyroidectomy: papillary carcinoma. Peripheral neuropathy (Chronic 01/03/15). Nontoxic multinodular goiter (Chronic 09/12/12). Malignant melanoma of skin (Chronic 09/12/12). [facility] DERMATOLOGY; HAS F/U IN SEPTEMBER 2012 & annually. MELANOMA TO BACK. Left carpal tunnel syndrome (Chronic 06/30/17). Ischemic cardiomyopathy (Chronic 07/05/17). 07/05/17 LVEF=29%. Hypomagnesemia (Chronic 04/18/13). Clinically manifested with leg cramps; initiated Mg++ Oxide 03/2013. Heartburn (Chronic 03/13/13). PPI prn. Nisson fundiplication 06/08. Essential hypertension (Chronic 11/07/12). Diabetic neuropathy (Chronic 06/28/14). Depression (Chronic). 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 03/05/[address] Taylor letter GE junction; pending path results. BPH NOS w/o ur obs/LUTS (Chronic). ASHD (arteriosclerotic heart disease) (Chronic 07/05/17). 07/05/17-[facility] 3VCAD;. Medical History . Anemia (07/23/14). BPH (benign prostatic hyperplasia). Bruising (03/07/18). on coumadin. Carpal tunnel syndrome on both sides. 01/22/15. Cerumen debris on tympanic membrane of right ear. Confusion. 08/03/17. Deep vein thrombosis (DVT) of tibial vein of right lower extremity. 08/03/17 unspecified chronicity partial occlusion 07/29/17. Diabetes mellitus. Functional disorder of stomach. 09/12/12. GERD (gastroesophageal reflux disease). History of tobacco use. Quit . Hyperlipemia. Hypertension. Ischemic leg. 09/02/17. Malignant melanoma of skin, unspecified. in situ; neg. sentinel node. Night cramps. 04/11/13. Obesity. MARIA VICTORIA (obstructive sleep apnea). Pain at injection site. Papillary thyroid carcinoma. 03/30/1302/2013 s/p thyroidectomy with Vernon Mcknight [facility] Dr. Delcid cancer f/u [facility]. Papillary thyroid carcinoma (03/30/13). Restless legs. 03/03/13 requip. STEMI (ST elevation myocardial infarction). 07/05/17. UTI (urinary tract infection). Surgical History . Colonoscopy - MAC. 01/16/14- [facility]. EGD - MAC (03/05/14). H/O esophagogastroduodenoscopy. 07/26/13. Open Carpal Tunnel release. 04/03/16- RIGHT. S/P carpal tunnel release. 04/03/16 right. S/P thyroidectomy. 07/26/12 [facility] Dr. Mcknight. S/P trigger finger release. 04/03/16 trigger little finger of right hand. Thyroidectomy, 2012. [facility] Dr. Manny Mcknight. Trigger Finger release. 04/03/16; RIGHT SMALL FINGER PREVIOUS FUNCTIONAL STATUS/SOCIAL/FAMILY SUPPORTS:: Don lives in [place] with his Kisha. They have 2 children who live in the area. Don and his are close to their daughter but do not have contact with their son. 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 Don is independent at baseline and does not receive any services. CURRENT FUNCTIONAL STATUS:: Don was waiting for a bed at [facility] when CM met with him. He admitted to being frustrated by the wait and being kept NPO. He verbalized understanding why and stated I guess I'm just a cranky old man, with a smile. ADVANCE DIRECTIVES:: On file. Kisha [facility] Has patient been provided with info about the portal/API?: Yes Did the patient sign up for the portal?: Yes (previously) CODE STATUS:: Full Code INSURANCE COVERAGE / FINANCIAL ISSUES:: Medicare. BC BS CURRENT HOME/COMMUNITY SERVICES/EQUIPMENT:: none PRIMARY CARE PHYSICIAN:: Lovely Vicente POTENTIAL DISCHARGE NEEDS:: follow up with PCP and plan of care PATIENT/FAMILY EDUCATION NEEDS:: Review of discharge instructions, limitations, follow up plan, medications, Ask Me Three TRANSPORTATION:: via EMS if bed becomes available PLAN:: Don will be transferred to [facility] via EMS coordinated by nursing carpet finishing supervisor.
--- NOTE | 2021-12-08 12:56 | W.PM.DS.N ---
Date of service: 12/08/21 Time of Service: 11:57 DS: Diagnosis Discharge Diagnosis (1) CHF exacerbation: Status: Acute (2) Respiratory failure with hypoxia: Status: Acute (3) Acute non-ST elevation myocardial infarction (NSTEMI): Status: Acute (4) Hypothyroidism: Status: Chronic (5) Essential hypertension: Status: Chronic (6) Ischemic cardiomyopathy: Status: Chronic (7) Heartburn: Status: Chronic (8) Diabetes: Status: Chronic Discharge Plan Disposition Patient Disposition: [facility] Condition: Serious Discharge Details Reason For Visit: NSTEMI Admit Date/Time: 12/08/21 00:01 Admit Provider: Blade Ramos Attending Provider: Blade Ramos Primary Care Provider: Lovely Vicente [facility] Course Hospital Course: 76 male with PVD, DM, CAD, s/p CT 2017, s/p CABG. CT in 2017 presented with SOB. He endorsed 2-3 days of SOB and orthopnea. No CP. No ankle swelling. In ER findings of note for initial RA sat 86%. Trop >4000, EKG with old AMI, [address] elevation V1 and TW inversions I and AVL; EKG essentially unchanged from baseline. BNP>5000 and CXR shows moderate pulmonary edema. [place] [facility] [place] as [place]STEMI. Patient given 40 Lasix IVP, [id number], Plavix 600 and started heparin qtt (note he is on Coumadin for AF, evidently paroxysmal, and INR 1.7). Troponin: 4890 > 6924 > 8004 Home Meds and New Rx's Prescriptions: No Action ferrous sulfate 325 mg (65 mg iron) tablet 325 mg PO .4 day per week aspirin 81 mg tablet,chewable 81 mg PO .2 days/week levothyroxine 175 mcg tablet 175 mcg PO DAILY Qty: 90 12RF Rx Instructions: 1 tab daily except 2 tabs on Wed Lantus Solostar U-100 Insulin 100 unit/mL (3 mL) insulin pen 35 unit subcut DAILY Qty: 30 4RF losartan 100 mg tablet 100 mg PO DAILY Qty: 90 6RF metformin 850 mg tablet 850 mg PO BID Qty: 180 4RF metoprolol succinate 50 mg tablet extended release 24 hr 50 mg PO DAILY Qty: 90 5RF turmeric root extract 500 mg capsule 500 mg PO BID amlodipine 5 mg tablet 5 mg PO DAILY Qty: 90 6RF (DME) blood-glucose meter 1 EACH misc 1 ea Miscellaneous PRN Qty: 1 Rx Instructions: For Accucheck Compact meter DIAGNOSIS CODE 250.01 (DME) lancets [BD Ultra Fine Lancets] 1 EACH misc 1 ea Sub-Q AC & HS Qty: 400 6RF Rx Instructions: Labile blood sugar E11.65 DISPENSE: lancets acetaminophen 650 MG tablet 2 tab PO BID PRN magnesium oxide 500 mg capsule 500 mg PO DAILY Qty: 180 ascorbic acid (vitamin C) [Vitamin C] 500 mg tablet 500 mg PO DAILY Label Comments: 05/09/15- Takes during winter months. aj (DME) Blood Glucose Test Strip 1 ea Miscellaneous AC & HS Qty: 400 12RF Rx Instructions: accu check arriva METER. PT USES INSULIN. Labile DM. TESTS TID AND PRN.DIAGNOSIS CODE E11.65/Z79.4 atorvastatin 10 mg tablet 10 mg PO .COMPLEX Qty: 90 4RF Rx Instructions: 10 mg PO 5 days weekly; furosemide 20 mg tablet 20 mg PO DAILY Qty: 90 4RF (DME) pen needle, diabetic [Pen Needle] 31 gauge x 5/16 needle 1 ea Miscellaneous ac and hs Qty: 400 3RF Rx Instructions: 31G 3/16 pen needle to administer insulin.E11.65 warfarin 2.5 mg tablet See Rx Instructions PO QPM Qty: 600 11RF Protocol: Dose Management Condition: Wednesday Dose/Route: 5 mg Instruction: 2 x 2.5 mg tablets Condition: Wednesday Dose/Route: 7.5 mg Instruction: 3 x 2.5 mg tablets Condition: Wednesday Dose/Route: 5 mg Instruction: 2 x 2.5 mg tablets Condition: Wednesday Dose/Route: 5 mg Instruction: 2 x 2.5 mg tablets Condition: Dose/Route: 7.5 mg Instruction: 3 x 2.5 mg tablets Condition: Wednesday Dose/Route: 5 mg Instruction: 2 x 2.5 mg tablets Condition: Wednesday Dose/Route: 5 mg Instruction: 2 x 2.5 mg tablets Protocol Text: Adjustment Start Date: Wednesday11/21/21 INR Value: 1.9 INR Date: 11/21/21 Recheck Date: 12/21/21 Rx Instructions: 2-3 tabs PO every evening; dose dependent on PT/INR at [facility]; presently 21 tabs per week - changes often clobetasol 0.05 % solution 1 applic Topical DAILY PRN (Reason: rash) Qty: 50 5RF insulin lispro [Humalog KwikPen Insulin] 100 unit/mL insulin pen 25 unit subcut AC Qty: 30 4RF Discharge Instructions Activity:: Bedrest Equipment/Supplies:: No Equipment Needed Diet:: Other Discharge Orders Discharge Orders: Discharge Order (Routine); Ordered 12/08/21 Ordered By: Nick Cohen DS: Summary Time Spent with Patient providing and/or coordinating discharge services: Greater than 30 minutes Status at Discharge Functional status at discharge: independent ambulation Overall status at discharge: patient is not back to baseline Mental Status: mental status grossly normal Speech and Movement: speech and movement normal Mood: congruent mood Affect: normal affect Exam Narrative Exam Narrative: HEENT atraumatic; neck supple, FROM, lungs basilar rales; heart RRR w/o MRG; abdomen soft and NT; extremities with trace pedal edema; pedal pulses weak on left, non-palpable on right, s/p md-tarsal amp on right; neuro Ox3, lucid, moves all 4 extremities. Psych Mental Status: mental status grossly normal Speech and Movement: speech and movement normal Mood: congruent mood Affect: normal affect DS: Data Vitals/I&O Vitals and I&O: Vital Signs Temperature 36.6 C 12/08/21 12:43 Temperature Source Temporal Artery Scan 12/08/21 12:43 Pulse 69 12/08/21 12:43 Pulse 82 12/08/21 04:34 Respiratory Rate 19 12/08/21 12:43 Respiratory Effort Non-Labored 12/08/21 12:43 Respiratory Depth Normal 12/08/21 12:43 Respiratory Pattern Tachypnea 12/08/21 12:43 Blood Pressure 96/48 L 12/08/21 12:43 Blood Pressure Mean 64 12/08/21 12:43 Blood Pressure Position Supine 12/08/21 12:43 Pulse Oximetry 95 12/08/21 12:43 Oxygen Delivery Method Nasal Cannula 12/08/21 12:43 Oxygen Flow Rate 4 12/08/21 12:43 Pain Level 0 12/08/21 12:43 Intake & Output 12/07/21 12/08/2112/08/22 23:59 11:59 23:59 Intake Total 514.75 / 514.75 Output Total 1200 / 1200 Balance -685.25 / -685.25 Weight 94.6 kg 92.3 kg Intake: IV 514.75 / 514.75 Output: Urine 1200 / 1200 Other: Urine Color Straw Urine Appearance Clear Urine Odor Normal Comment h/o BPH Voiding Methods Urinal Data Completed and Pending Labs on day of discharge: Labs from last 24 hours 12/08/21 12/08/21 12/08/21 12:39 12:19 06:00 WBC RBC Hgb Hct MCV MCH MCHC RDW Plt Count MPV Immature Gran % Neutrophils % Lymphocytes % Monocytes % Eosinophils % Basophils % Nucleated RBC % Absolute Neutrophils Absolute Lymphocytes Absolute Monocytes Absolute Eosinophils Absolute Basophils PT INR APTT Pending D-Dimer VBG pH VBG pCO2 VBG pO2 VBG HCO3 VBG Total CO2 VBG O2 Saturation VBG Base Excess Sodium Potassium Chloride Carbon Dioxide Anion Gap BUN Creatinine Estimated GFR/1.73 m2 Glucose Calcium Magnesium Total Bilirubin AST ALT Alkaline Phosphatase Troponin I Pending 8004 H* NT-Pro-B Natriuret Pep Total Protein Albumin COVID-19 Source SARS-CoV-2 (PCR) 12/08/21 12/08/21 12/07/21 06:00 00:25 23:20 WBC RBC Hgb Hct MCV MCH MCHC RDW Plt Count MPV Immature Gran % Neutrophils % Lymphocytes % Monocytes % Eosinophils % Basophils % Nucleated RBC % Absolute Neutrophils Absolute Lymphocytes Absolute Monocytes Absolute Eosinophils Absolute Basophils PT INR APTT 40.2 H D-Dimer VBG pH 7.44 H VBG pCO2 38 L VBG pO2 49 VBG HCO3 26 VBG Total CO2 23 L VBG O2 Saturation 83 VBG Base Excess 1 Sodium Potassium Chloride Carbon Dioxide Anion Gap BUN Creatinine Estimated GFR/1.73 m2 Glucose Calcium Magnesium Total Bilirubin AST ALT Alkaline Phosphatase Troponin I 6924 H* NT-Pro-B Natriuret Pep Total Protein Albumin COVID-19 Source SARS-CoV-2 (PCR) 12/07/21 12/07/21 12/07/21 21:57 21:57 21:57 WBC 13.73 H RBC 4.30 L Hgb 12.6 L Hct 38.5 L MCV 90 MCH 29.3 MCHC 32.7 RDW 15.1 H Plt Count 197 MPV 9.7 Immature Gran % 0.5 Neutrophils % 86.5 Lymphocytes % 4.5 Monocytes % 8.2 Eosinophils % 0.1 Basophils % 0.2 Nucleated RBC % 0.0 Absolute Neutrophils 11.88 H Absolute Lymphocytes 0.62 L Absolute Monocytes 1.13 H Absolute Eosinophils 0.01 Absolute Basophils 0.03 PT 16.5 H INR 1.7 H APTT 32.5 H D-Dimer 403 VBG pH VBG pCO2 VBG pO2 VBG HCO3 VBG Total CO2 VBG O2 Saturation VBG Base Excess Sodium Potassium Chloride Carbon Dioxide Anion Gap BUN Creatinine Estimated GFR/1.73 m2 Glucose Calcium Magnesium Total Bilirubin AST ALT Alkaline Phosphatase Troponin I NT-Pro-B Natriuret Pep Total Protein Albumin COVID-19 Source SARS-CoV-2 (PCR) 12/07/21 12/07/21 21:57 21:50 WBC RBC Hgb Hct MCV MCH MCHC RDW Plt Count MPV Immature Gran % Neutrophils % Lymphocytes % Monocytes % Eosinophils % Basophils % Nucleated RBC % Absolute Neutrophils Absolute Lymphocytes Absolute Monocytes Absolute Eosinophils Absolute Basophils PT INR APTT D-Dimer VBG pH VBG pCO2 VBG pO2 VBG HCO3 VBG Total CO2 VBG O2 Saturation VBG Base Excess Sodium 140 Potassium 4.2 Chloride 104 Carbon Dioxide 25.1 Anion Gap 10.9 BUN 25 H Creatinine 1.5 H Estimated GFR/1.73 m2 45.62 Glucose 214 H Calcium 8.4 L Magnesium 1.9 Total Bilirubin 1.2 H AST 41 H ALT 25 Alkaline Phosphatase 86 Troponin I 4890 H* NT-Pro-B Natriuret Pep 5419 H Total Protein 7.7 Albumin 3.5 COVID-19 Source Nasal/Nares SARS-CoV-2 (PCR) Negative PFSH All Active Problems Respiratory failure with hypoxia (Acute) Diabetes (Chronic) Hypothyroidism (Chronic) Acute non-ST elevation myocardial infarction (NSTEMI) (Acute) CHF exacerbation (Acute) Renal function impairment (Chronic) Impacted cerumen, bilateral (Acute) Diarrhea (Acute) Dizziness (Acute) Primary osteoarthritis, left hand (Acute) Conductive hearing loss, external ear (Acute) Diarrhea (Acute) Restless legs (Acute 03/13/13) Afib (Chronic) Chronic anticoagulation (Acute) Urinary retention (Chronic 06/28/14) Type 2 diabetes mellitus with hyperglycemia (Chronic 12/24/15) Tubular adenoma of colon (Chronic 07/03/14) 01/06 Sleep apnea (Chronic) study 02/06/14-severe obstructive sleep apnea; CPAP Sensorineural hearing loss, bilateral (Chronic 11/28/12) Dr Vega; B/L hearing aids Psoriasis (Chronic 03/13/13) 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) [facility] Hypothyroidism associated with surgical procedure (Chronic 04/10/14) 03/2013 [facility] [place]: papillary carcinoma Peripheral neuropathy (Chronic 01/03/15) Nontoxic multinodular goiter (Chronic 09/12/12) Malignant melanoma of skin (Chronic 09/12/12) [facility]; HAS F/U IN SEPTEMBER 2012 & annually MELANOMA TO BACK Left carpal tunnel syndrome (Chronic 06/30/17) Ischemic cardiomyopathy (Chronic 07/05/17) 07/05/17 LVEF=29% Hypomagnesemia (Chronic 04/18/13) Clinically manifested with leg cramps; initiated Mg++ Oxide 03/2013 Heartburn (Chronic 03/13/13) PPI prn Nisson fundiplication 06/08 Essential hypertension (Chronic 11/07/12) Diabetic neuropathy (Chronic 06/28/14) Depression (Chronic) 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 Taylor letter GE junction; pending path results BPH NOS w/o ur obs/LUTS (Chronic) ASHD (arteriosclerotic heart disease) (Chronic 07/05/17) 07/05/17[place]; Medical History Anemia (07/23/14) BPH (benign prostatic hyperplasia) Bruising (03/07/18) on coumadin Carpal tunnel syndrome on both sides 01/22/15 Cerumen debris on tympanic membrane of right ear Confusion 08/03/17 Deep vein thrombosis (DVT) of tibial vein of right lower extremity 08/03/17 unspecified chronicity partial occlusion 07/29/17 Diabetes mellitus Functional disorder of stomach 09/12/12 GERD (gastroesophageal reflux disease) History of tobacco use Quit 1970s Hyperlipemia Hypertension Ischemic leg 09/02/17 Malignant melanoma of skin, unspecified in situ; neg. sentinel node Night cramps 04/11/13 Obesity MARIA VICTORIA (obstructive sleep apnea) Pain at injection site Papillary thyroid carcinoma 03/30/1302/2013 s/p thyroidectomy with Vernon Mcknight [facility] [place] Delcid [place] [facility] Papillary thyroid carcinoma (03/30/13) Restless legs 03/03/13 requip STEMI (ST elevation myocardial infarction) 07/05/17 UTI (urinary tract infection) Surgical History Colonoscopy - MAC 01/16/14[place] [place] - MAC (03/05/14) H/O esophagogastroduodenoscopy 07/26/13 Open Carpal Tunnel release 04/03/16- RIGHT S/P carpal tunnel release 04/03/16 right S/P thyroidectomy 07/26/12 [facility] [place] S/P trigger finger release 04/03/16 trigger little finger of right hand Thyroidectomy, 2012 [facility] [place]. Manny Mcknight Trigger Finger release 04/03/16; RIGHT SMALL FINGER Family History Mother Alcohol abuse Father , 82? Diabetes Brother , 47 Alcohol abuse Lung cancer Maternal Grandfather , 80? No problems noted. Paternal Grandfather No problems noted. Maternal Grandmother , 78? Cancer Paternal Grandmother No problems noted. Son Substance abuse Daughter No problems noted. Social History Smoking/Tobacco Use Status: Former Tobacco Use tobacco type: cigarettes Quit Date: 07/26/77 Tobacco: How many years used: 15 Second Hand Exposure: Yes Smoking risk assessment performed?: Yes Alcohol Intake: former Drug use: Never Substance use type: does not use Counseling given: No Caregiver/Support person: No Household members: spouse Housing: house Communication Needs: Hard of Hearing Do you need help understanding health information?: Often current occupation: WORKING AT [employer]. Pets and animals: Yes Pets and animals: dog(s) Sexually active: No Do you think of yourself as: straight/heterosexual Current gender identity: male What is your relationship status?: How often do you talk on the phone with friends or family?: three or more times per week How often do you get together with friends or relatives?: twice per week How often do you attend quaker or sabianist services?: 4 or more times per year Do you belong to any clubs or organized social groups?: yes Panel score (0-1 are the most socially isolated patients): 4 What type of physical activity do you participate in: walking Duration: 15-30 minutes/day Frequency: daily Adelina/Spiritism: Mormonism Special adelina needs: No Seatbelt use: always Helmet use: Yes Helmet use: sometimes Drive intox or ride w/intox driver helper: No Do you feel safe at home: Yes Do you feel safe in your relationship?: Yes
[2021-12-08 13:13] LABS: PTT Activated 56.8 sec (21.0-27.5)
[2021-12-08 13:25] LABS: Troponin I 6731 ng/L (<or=60)
[2021-12-08] MEDS: Perflutren Lipid Microspheres 1.5 ML VIAL 0.2 ML IVP (16:16)
== END 2021-12-08 14:24 | disposition short-term general hospital (02) ==
LOC: ER 12-08 01:00 → ICU 12-08 01:04
PROVIDERS: Family Medicine; Student in an Organized Health Care Education/Training Program; Admitting Provider General Practice; Emergency Provider Registered Nurse Emergency; PCP Family Medicine; Visit Provider General Practice
DX: I21.4 Non-ST elevation (NSTEMI) myocardial infarction (principal); J96.01 Acute respiratory failure with hypoxia; I11.0 Hypertensive heart disease with heart failure; I50.9 Heart failure, unspecified; I45.2 Bifascicular block; I25.5 Ischemic cardiomyopathy; E11.42 Type 2 diabetes mellitus with diabetic polyneuropathy; K22.70 Barrett's esophagus without dysplasia; Z79.4 Long term (current) use of insulin; Z79.01 Long term (current) use of anticoagulants; Z79.84 Long term (current) use of oral hypoglycemic drugs; Z95.5 Presence of coronary angioplasty implant and graft; G47.33 Obstructive sleep apnea (adult) (pediatric); E78.5 Hyperlipidemia, unspecified; K21.9 Gastro-esophageal reflux disease without esophagitis; Z86.718 Personal history of other venous thrombosis and embolism; N40.0 Benign prostatic hyperplasia without lower urinary tract symptoms; I25.2 Old myocardial infarction; I48.91 Unspecified atrial fibrillation; D64.9 Anemia, unspecified; Z87.891 Personal history of nicotine dependence; E03.9 Hypothyroidism, unspecified
CPT/HCPCS: Q9957; 36415; 36416; 80053; 82805; 82962; 87635; 93005; 93306; 94640; 96365; 96366; 96372; 96375; 96376; 99291; C8929; 71045; 83735; 83880; 84484; 85025; 85379; 85610; 85730; 93010; 99219; 99222; G0378; J1940; J2930; J7620

== ENCOUNTER 2021-12-29 13:04 | Outpatient (REF) | payer MEDICARE, BC, SELFPAY ==
[2021-12-30 09:34] LABS: Source Nasopharynx
[2021-12-30 11:41] LABS: COVID-19 PCR Negative (Negative)
== END 2021-12-29 13:05 | disposition home or self-care (01) ==
LOC: LBN 13:04
PROVIDERS: PCP Family Medicine; Visit Provider Family Medicine
DX: Z20.822 Contact with and (suspected) exposure to COVID-19 (principal); Z01.818 Encounter for other preprocedural examination; I25.10 Atherosclerotic heart disease of native coronary artery without angina pectoris
CPT/HCPCS: 87635; U0005

== ENCOUNTER 2022-01-27 03:31 | Outpatient (CLI) | payer MEDICARE, BC, SELFPAY ==
[2022-01-29 10:59] LABS: COVID-19 RT-PCR UVMMC Result Negative (Negative)
== END 2022-01-27 03:32 | disposition home or self-care (01) ==
LOC: LBO 03:31
PROVIDERS: PCP Family Medicine; Visit Provider Urology
DX: Z20.822 Contact with and (suspected) exposure to COVID-19 (principal); Z01.818 Encounter for other preprocedural examination; Z01.812 Encounter for preprocedural laboratory examination
CPT/HCPCS: U0003

== ENCOUNTER 2022-02-20 01:28 | Outpatient (CLI) | payer MEDICARE, BC, SELFPAY ==
--- OUTSIDE RECORDS SUMMARY | 2022-02-20 01:39 | XMS_ITS | Encounter Summary ---
:1945 Author Organization [facility] [place] [address] Care Team Providers Name Role Phone Lovely Vicente MD Primary Care Provider Encounter Details Date Type Department Care Team Description 12/24/2021 Telephone Public Health at [facility] [place] [address] Social History Tobacco Use Types Packs/Day [...] Encounters Date Type Specialty Care Team Description 03/26/2022 Office Visit Cardiology Vitaliy Nobles MD [facility] CARDIOLOGY [place], [place] [address] (Wo rk) documented as of this encounter Visit Diagnoses Not on filedocumented in this encounter Care Teams B2B Appointment Setter Relationship Specialty Start Date End Date Lovely Vicente MD PCP - General 04/16/[address] [place] [address] [address] [facility] [address] [place] [address] documented as of this encounter
--- OUTSIDE RECORDS SUMMARY | 2022-02-20 01:39 | XMS_ITS | Encounter Summary ---
:1945 Author Organization [facility] [place] [address] Care Team Providers Name Role Phone Lovely Vicente MD Primary Care Provider Reason for Referral Diagnostic Test (Routine) - New Request Specialty Diagnoses / Procedures Referred By Contact Refer red To Contact Cardiology Diagnoses Chronic systolic heart failure Liz Carrera PA [facility] Non-Inv Card Lab Procedures Echocardiogram Transthoracic [facility] [place] [address] [place] [address] Fax: Referral ID Status Reason Start Expiration Visits Visits Date Date Requested Authorized [id number] New Request Specialty 02/19/2022 02/19/2023 1 1 Service Requested Encounter Details Date Type Department Care Team Description 02/19/2022 Office Visit Cardiology at [facility] Liz Carrera, Chronic systolic heart [facility] [place] [address] Cardiology Dept [phone] [place], [place] [address] Social History Tobacco Use Types [...] Sign Reading Time Taken Comments Blood Pressure 113/64 02/19/2022 8:32 AM EDT Pulse 69 02/19/2022 8:32 AM EDT Temperature - - Respiratory Rate - - Oxygen Saturation 100% 02/19/2022 8:32 AM EDT Inhaled Oxygen Concentration - - Weight 89.4 kg (197 lb) 02/19/2022 8:32 AM EDT Height 172.7 cm (5' 8) 02/19/2022 8:32 AM EDT Reported Body Mass Index 29.95 02/19/2022 8:32 AM EDT documented in this encounter Patient Instructions Patient InstructionsVenLiz flor PA - 02/19/2022 9:00 AM EDT Reduce spironolactone to 12.5 mg daily We will check the cost of Entresto to replace losartan. Please expect a call from our pharmacy team and VAMSI Thomas to help with this transition Consider changing torsemide to as needed when we dispense Entresto documented in this encounter Progress Notes Liz Carrera PA - 02/19/2022 9:00 AM EDT Images from the original note were not included. CARDIOMYOPATHY/HEART FAILURE SERVICE OFFICE VISIT NOTE: ID and CC: Don Fatima is a 76 y.o. male presenting for f/u regarding ASCVD, ischemic cardiomyopathy. ?? HPI: [...] anticoagulation. Discharge weight: 200 lb. Last visit: 12/25/21 (post hospital); reduced torsemide dosing Interim events: As per DC Summary - Admitted to [facility] on 12/08/21, transferred from [facility], respiratory distress with hypoxia 86% on RA. [...] mg PO daily in place of Lasix. Warren is new for him and he will have a BMP checked on 12/15 and prn Today: Staged PCI planned for December 31. Now s/p PCI TUCKER to RPDA; still with severe diffuse distal disease recommended for medical management. Denies chest pain, shortness of breath. He is quite active normally. Since hospital stay, is quite fatigued. No palpitations, dizziness, lightheadedness, pre-syncope or syncope. Good UO to current doseof torsemide. No LE edema or abdominal distention. No orthopnea. Improving blood sugar control now that he is home. Had felt very frustrated with insulin management while admitted. We discussed increasing Lantus dosing by 2 units every 2 days to achieve BSs below 120. He may need to adjust meal associated insulin. This will be reviewed with his PCP. He started [facility] rehab in [facility]. Monitored vitals/trends at home: Weight 191-194 lbs BP 117-136/60s Pulse 65 range Patient Active Problem List ?? Diagnosis ??? [...] Melanoma ? Your Medications Accurate as of February 19, 2022 9:30 AM. If you have any questions, ask your nurse or doctor. New Medications Dose Details Entresto 24-26 mg Tab tablet Take 1 tablet by mouth 2 times daily. Generic drug: sacubitriL-valsartan Started by: STEPHANIE Pratt 1 tablet Quantity: 60 tablet Refills: 11 Continued medications with new dosing Dose Details levothyroxine 175 mcg Tab Commonly known as: SYNTHROID Take 1 tablet by mouth daily. 1 tablet daily 6 days per week, and 2 tablets 1 day per week. What changed: additional instructions 175 mcg Quantity: 102 tablet Refills: 3 spironolactone 25 mg Tab Commonly known as: Aldactone Take 0.5 tablets by mouth daily. What changed: how much to take Changed by: STEPHANIE Pratt 12.5 mg Quantity: 45 tablet Refills: 3 Continued medications, unchanged Dose Details Accu-Chek Elif Plus test strp Strp 2-3 times daily Generic drug: blood sugar diagnostic strips Quantity: 100 each Refills: 1 apixaban 5 mg Tab Commonly known as: Eliquis Take 1 tablet by mouth 2 times daily. 5 mg Quantity: 180 tablet Refills: 3 ascorbic acid (Vitamin C) 500 mg Tab Commonly known as: Vitamin C Take 500 mg by mouth daily. 500 mg Refills: 0 ASPIRIN ORAL Take 81 mg by mouth. 81 mg Refills: 0 atorvastatin 40 mg [...] of 50 mg 25 mg Refills: 0 nitroGLYcerin 0.4 mg Subl Commonly known as: Nitrostat Place 1 tablet under the tongue every 5 minutes as needed for Chest pain. 0.4 mg Quantity: 90 tablet Refills: 12 pantoprazole EC 40 mg Tbec Commonly known as: Protonix Take 1 tablet by mouth daily. 40 mg Quantity: 90 tablet Refills: 3 torsemide 20 mg Tab Commonly known as: Demadex Take 1 tablet by mouth daily. 20 mg Quantity: 30 tablet Refills: 11 TURMERIC ORAL Take 500 mg by mouth 2 times daily. 500 mg Refills: 0 Allergies: Review of patient's allergies indicates no known allergies. ?? Heart Failure Management: Yes/No No?/Discontinued/Why Beta chadwick Yes Metoprolol succinate 25 mg daily KIRSTIN/ARB Yes Losartan 50 mg daily Spironolactone Yes Spironolactone 25 mg daily AFIB? Post-op Anticoagulated Yes Eliquis Device No EF now 35%, reassess after PCI and optimizing GDMT Patient Vitals for the past 24 hrs: Pulse BP SpO2 02/19/22 0832 69 113/64 100 % Physical Exam: NCAT Neck - Supple, JVP < 10cm H2O Heart - Reg s1s2 Lungs - Clear Abd - BS+, soft, NT/ND Ext - No appreciable edema ?? Lab data: Recent Labs 02/19/22 0806 NA 142 K 5.4* CL 100 CO2 31 BUN 31* CREATININE 1.53* GLUCOSE 139 ProBNP Date Value Ref Range Status 02/19/2022 984 (H) <=449 pg/mL Final 12/25/2021 1,380 (H) <=124 pg/mL Final 04/16/2021 523 (H) <=124 pg/mL Final Lipid Panel Lab Results Component [...] Antiplatelet (DAPT) Recommendations above ? TTE from [facility] 12/08/21 ?? 07/28/2019 Echocardiogram: SUMMARY: 1. The [...] regurgitation present. 07/07/2019 - 07/21/2019 Zio Patch Vp Design The patient had a minimum heart rate [...] failure. 1. ASCVD On BB, statin, ARB Plavix Patient advised to continue aspirin 2 days per week by PCP (also on AC) 2. Ischemic cardiomyopathy Echocardiogram shows EF 35% Metoprolol succinate 25 mg daily Losartan 50 mg daily - cost check Entresto 24-26 mg bid to replace losartan Spironolactone 25 mg daily - reduce to 12.5 mg daily Jardiance 10 mg daily Repeat TTE 3 months after adjusting GDMT 3. Systolic heart failure EF 35 % ACC/AHA stage C, NYHA FC II-IIIa Euvolemic on exam, ProBNP downtrending Torsemide to 20 mg daily - change to prn dosing when starting Entresto ?? 4. HTN BP: (113)/(64) BB, ARB, MRA ?? 5. Hx of hyperkalemia 5.4 today - reduce spironolactone to 12.5 mg daily 6. Post-op atrial fibrillation [id number] 7 (CHF, HTN, DM, vascular disease, thromboembolism) Eliquis 7. PAD 08/06/2017: Right 1st, 2nd, 3rd toe amputation 08/11/2017: Left??femoral arterial access, RLE??angiogram, Balloon angioplasty of R PT 10/25/2017: right popliteal-pedal bypass at [facility] 8. Hypothyrodism S/p thyroidectomy for goiter Levothyroxine ?? Plan: 3 months in clinic with labs and TTE Liz Carrera PA-C 02/19/2022 documented in this encounter Miscellaneous Notes Addendum Note - Liz Carrera PA - 02/19/2022 9:00 AM EDT Addended by: LIZ CARRERA on: 02/19/2022 04:22 PM Modules accepted: Orders documented in this encounter Plan of Treatment Upcoming Encounters Date Type Specialty Care Team Description 03/26/2022 Office Visit Cardiology Vitaliy Nobles MD [facility] CARDIOLOGY [place] [address] (Wo rk) Scheduled Orders Name Type Priority Associated Order Schedule Diagnoses Echocardiogram Echocardiography Routine Chronic systolic Expec vlad: Transthoracic heart failure 05/22/2022 (Approximate), Expires: 11/21/2022 documented as of this encounter Results (ABNORMAL) Basic Metabolic Panel (non-fasting) (02/19/2022 8:06 AM EDT) athologist Signature Glucose Lvl 139 65 - 199 [facility] mg/dL [facility] Comment: Diabetes: >=200 mg/dL plus symp toms BUN 31 (H) 10 - 20 mg/dL [facility] Creatinine 1.53 (H) 0.80 - 1.50 mg/dL [facility] Sodium 142 135 - 145 mmol/L [facility] Potassium 5.4 (H) 3.5 - 5.0 mmol/L [facility] Comment: Please note: ??Patients with WBC >100,00 0 may have falsely elevated Potassium levels. ??For accurate Potassium quantif ication in these patients send serum separator tube (gold top) for subsequent determinations. ??Contact the Clinical Chemistry Laboratory if there are any qu estions. Chloride 100 98 - 107 mmol/L [facility] CO2 31 22 - 31 mmol/L [facility] Anion Gap 11 5 - 15 mmol/L [facility] Calcium 9.7 8.5 - 10.5 mg/dL [facility] Estimated GFR 47 (L) >=60 mL/min/1.73 m?? [facility] Comment: This patient's estimated GFR [...] (Source) Location / / Volume Laterality Blood 02/19/2022 8:06 AM 2 8:09 EDT AM EDT Resulting Agency Comment Spec In Lab Zulma Plunkett MD CHEMISTRY ORDERABLES Performing Organization Address City/State/[place] [address] (ABNORMAL) pro-Brain Natriuretic Peptide (02/19/2022 8:06 AM EDT) P athologist Signature ProBNP 984 (H) <=449 pg/mL [facility] Specimen Anatomical Collection Method Collection Time Receive d Time (Source) Location / / Volume Laterality Blood 02/19/2022 8:06 AM 2 8:09 EDT AM EDT Resulting Agency Comment Spec In Lab Zulma Plunkett MD CHEMISTRY ORDERABLES Performing Organization Address City/State/[place] [address] documented in this encounter Visit Diagnoses Diagnosis Chronic systolic heart failure documented in this encounter Care Teams Mold Presser Relationship Specialty Start Date End Date Lovely Vicente MD PCP - General 04/16/[address] [place] [address] documented as of this encounter
--- OUTSIDE RECORDS SUMMARY | 2022-02-20 01:39 | XMS_ITS | Encounter Summary ---
:1945 Author Organization [facility] [place] [address] Care Team Providers Name Role Phone Lovely Vicente MD Primary Care Provider Encounter Details Date Type Department Care Team Description 12/15/2021 Telephone Cardiology at [facility] Barbara Mera, [place] [phone] Social History Tobacco Use Types Packs/Day [...] Office Visit Cardiology Vitaliy Nobles MD [facility] CARDIOLOGY [place], [place] [address] (Wo rk) documented as of this encounter Visit Diagnoses Not on filedocumented in this encounter Care Teams Ldr Rn Relationship Specialty Start Date End Date Lovely Vicente MD PCP - General 04/16/[address] [place] [address] documented as of this encounter
--- OUTSIDE RECORDS SUMMARY | 2022-02-20 01:39 | XMS_ITS | Encounter Summary ---
:1945 Author Organization [facility] [place] [address] Care Team Providers Name Role Phone Lovely Vicente MD Primary Care Provider Reason for Visit Reason Onset Date Comments Advice Only 01/28/2022 Encounter Details Date Type Department Care Team Description 01/28/2022 Telephone Cardiology at [facility] Chitra Angela, operators school [place] [address] Social History Tobacco Use Types Packs/Day [...] Fatima assists patient with medications. Number for chemical processing laborer scheduling given and she will call them to verify this information Meds reviewed. As per our form from chemical processing laborer Eliquis hold for 48 hours prior. Pt [...] Vitaliy Nobles MD [facility] CARDIOLOGY [place], [place] [address] (Wo rk) documented as of this encounter Visit Diagnoses Not on filedocumented in this encounter Care Teams Culinary Manager Relationship Specialty Start Date End Date Lovely Vicente MD PCP - General 04/16/[address] [place] [address] documented as of this encounter
--- OUTSIDE RECORDS SUMMARY | 2022-02-20 01:39 | XMS_ITS | Encounter Summary ---
:1945 Author Organization [facility] Address [facility] [place] [address] Care Team Providers Name Role Phone Lovely Vicente MD Primary Care Provider Reason for Visit Auth/Cert Specialty Diagnoses / Procedures Referred By Contact Refer red To Contact Diagnoses ASCVD (arteriosclerotic cardiovascular disease) [I25.10] Vitaliy Nobles MD [facility] Procedures PRO PERC TRLUML CORONARY STENT W/ANGIO ONE ART/BRANCH CARDIAC CATHETERIZATION STENT PLACEMENT-SINGLE MAJOR CORONARY ARTERY OR BRANCH [facility] [place] [address] Referral ID Status Reason Start Date Expiration Date Visits Requ ested Visits Authorized [id number] 1 1 Encounter Details Date Type Department Care Team Description 01/30/2022 Hospital Encounter Short Stay Unit at Vitaliy Nobles, CVD (arteriosclerotic cardiovascular disease); Barbara Blue MD 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 Please follow up with your server manager in the next 4-6 weeks. We have made a referral to cardiac rehab. Please see the attached instructions regarding care to your right wrist access site. AttachmentsThe following attachments cannot be sent through Care Everywhere. Coronary Angiogram: Post-op (Tamazight)documented in this encounter Medications at Time of [...] 40 mg daily. Tablet, Delayed Release (E.C.) ferrous sulfate 325 mg Take 325 mg [...] 02/13/2022 PO/OG/NG route daily for 14 days. spironolactone Take 1 tablet by mouth 90 tablet 3 2 02/19/2022 (Aldactone) 25 mg daily. Tablet apixaban (Eliquis) 5 Take 1 tablet by mouth 60 tablet 3 02/19/2022 mg Tablet 2 times daily. documented as of this encounter Progress [...] recent PCI presenting for staged PCI to [facility]. The pt states he has been [...] recent PCI presenting for staged PCI to [facility]. 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 I had referred him to cardiac rehab at [facility] last month per HF team. He was waiting until this intervention before starting the program. Reviewed managing angina /use of sl nitroglycerin. Given parameters for home exercise. 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 We discussed short walks several times per day. Will send [facility] his discharge summary from this admission. The patient should be contacted by the Program within 1- 2 weeks from discharge. Brief Op Note - Vitaliy Nobles MD - 01/30/2022 10:19 AM EDT Images from the original note were not included. [facility] [place] [address] CORONARY ANGIOGRAM AND PERCUTANEOUS CORONARY INTERVENTION REPORT Patient: Don Fatima : 1945 MR number: [id number] Date of Service: 01/30/2022 Counter Installer: Vitaliy Nobles MD Fellow: KEYON Elizabeth INDICATION: [...] a long 2.0 x 26 mm HAR[place]EP [place] TUCKER stent and positioned it at the [...] using a 2.0 x 26 mm [place]EP [place] TUCKER stent. This completes the revascularization ofall [...] Cardiology Vitaliy Nobles MD [facility] [place], [place] [address] (Wo rk) Scheduled Orders Name [...] P athologist Signature Neutrophils % 71.8 % [facility] Neutr Abs (ANC) 3.96 1.70 - [facility] 6.10 [facility] x10(3)/[facility] LABORATORY Lymphocytes % 16.3 % [facility] Lymphocytes Abs 0.9 0.9 - 3.2 [facility] x10(3)/[facility] LABORATORY Monocytes % 10.0 % [facility] Monocyte Abs 0.6 0.3 - 0.9 [facility] x10(3)/[facility] LABORATORY Eosinophils % 0.5 % [facility] Eosinophils Abs 0.0 0.0 - 0.4 [facility] x10(3)/[facility] LABORATORY Basophils % 0.5 % [facility] Basophils Abs 0.0 0.0 - 0.1 [facility] x10(3)/[facility] LABORATORY Immature Gran % 0.90 % [facility] Comment: Immature granulocytes(IG's)percentage an d absolute count will include metamyelocytes, myelocytes, and promyelo cytes. Blood smears from CBCs yielding IG's will be scanned manually for concor dance. If this scan disagrees with the automated IG or if promyelocytes are not ed, a manual differential will be performed. Melisa Gran Abs 0.05 (H) 0.00 - 0.04 x10(3)/[facility] LABORATORY Specimen Anatomical Collection Method Collection Time Receive d Time (Source) Location / / Volume Laterality Blood 01/30/2022 2:12 PM 2 2:37 EDT PM EDT Resulting Agency Comment Spec In Lab Eddi Elizabeth Jr., MD HEMATOLOGY ORDERABLES Performing Organization Address City/State/[facility] [place] [address] (ABNORMAL) Hemogram (01/30/2022 2:12 PM EDT) Analysis Performed At Patho logist Time Signature WBC 5.5 4.0 - 9.5 [facility] x10(3)/[facility] LABORATORY RBC 4.30 (L) 4.58 - [facility] 5.54 [facility] x10(6)/[facility] LABORATORY Hemoglobin 12.7 (L) 13.7 - [facility] 16.5 g/dL [facility] Hematocrit 39.4 (L) 40.5 - [facility] 48.5 % [facility] MCV 91.6 82.9 - [facility] 93.[address] [facility] LABORATORY MCH 29.5 27.5 - [facility] 32.1 pg [facility] MCHC 32.2 32.0 - [facility] 35.7 g/dL [facility] Platelets 172 145 - 357 [facility] x10(3)/[facility] LABORATORY RDWSD 54.5 (H) 36.0 - [facility] 45.[address] [facility] LABORATORY RDWCV 16.4 (H) 11.4 - [facility] 13.8 % [facility] MPV 9.2 7.6 - 12.9 [facility] LABORATORY nRBC % Auto 0.0 % [facility] nRBC Abs Auto 0.000 0.000 - [facility] 0.000 [facility] x10(3)/[facility] LABORATORY Specimen Anatomical Collection Method Collection Time Receive d Time (Source) Location / / Volume Laterality Blood 01/30/2022 2:12 PM 2 2:37 EDT PM EDT Resulting Agency Comment Spec In Lab Eddi Elizabeth Jr., MD HEMATOLOGY ORDERABLES Performing Organization Address City/State/[place] [address] (ABNORMAL) Basic Metabolic Panel (non-fasting) (01/30/2022 2:12 PM EDT) athologist Signature Glucose Lvl 163 65 - 199 [facility] mg/dL [facility] Comment: Diabetes: >=200 mg/dL plus symp toms BUN 30 (H) 10 - 20 mg/dL [facility] Creatinine 1.47 0.80 - 1.50 mg/dL [facility] [...] estions. Chloride 101 98 - 107 mmol/L [facility] CO2 28 22 - 31 mmol/L [facility] Anion Gap 11 5 - 15 mmol/L [facility] Calcium 9.2 8.5 - 10.5 mg/dL [facility] Estimated GFR 49 (L) >=60 mL/min/1.73 m?? [facility] [...] Nobles MD CHEMISTRY ORDERABLES Performing Organization Address City/[facility]/ZIP [facility] Phon e Number [address] POCT Glucose (01/30/2022 1:41 PM EDT) athologist Signature POC Glucose 148 65 - 199 [facility] mg/dL [facility] Comment: Supplemental ranges: <140 mg/dL before meals <180 mg/dL all other times of the day Specimen Anatomical Collection Method Collection Time Receive d Time (Source) Location / / Volume Laterality Blood 01/30/2022 1:41 PM 2 1:41 EDT PM EDT Vitaliy Nobles MD POINT OF CARE TEST ORDERABLE S Performing Organization Address City/[facility]/ZIP [facility] Phon e Number [address] POCT Glucose (01/30/2022 10:48 AM EDT) athologist Signature POC Glucose 193 65 - 199 [facility] mg/dL [facility] Comment: Supplemental ranges: <140 mg/dL before meals <180 mg/dL all other times of the day Specimen Anatomical Collection Method Collection Time Receive d Time (Source) Location / / Volume Laterality Blood 01/30/2022 10:48 01/30/2022 AM EDT 10:48 AM EDT Vitaliy Sandra Nobles MD POINT OF CARE TEST ORDERABLE S Performing Organization Address City/State/[place] [address] EKG 12 Lead (01/30/2022 10:33 AM EDT) Component Value Ref Range Test Analysis Performed Pathologis t Method Time At Signature Ventricular rate 64 BPM MUSE SYSTEM Atrial Rate 64 BPM MUSE SYSTEM P-R Interval 162 ms MUSE SYSTEM QRS Duration 94 ms MUSE SYSTEM Q-T Interval 422 ms MUSE SYSTEM QTC Calculated 435 ms MUSE SYSTEM (Bezet) Calculated P Lavon 41 degrees MUSE SYSTEM Calculated R Lavon -27 degrees MUSE SYSTEM Calculated T Lavon 104 degrees MUSE SYSTEM INTERPRETATION Normal sinus rhythm MUSE SYSTEM Anterolateral infarct (cited on or before 09-DEC-2021) Abnormal ECG When compared with ECG of 10-DEC-2021 11:17, No significant change was found Confirmed by Gary Perez ([id number]) on 01/30/2022 5:57:5 2 PM Specimen Anatomical [...] SYSTEM - 01/30/2022 2:09 PM ED T ?[facility] [place] ? Cardiac Cathete rization/Intervention Report ? Patient Name: Don Fatima. ? Procedure Date: 01/30/2022 ? A #: [id number] ? Primary Physician: Nobles, Vitaliy P ? Case #: [id number] ? File Name: [id number] ? Catheterization Order Number: [id number] ? [facility] ? Final Report [place], [place] ? Patient Name: ? Don E. Stewa rt ? ID#: ?[id number] ? : ?1945 ? Procedure Date: ? January 30, 2022 ? Case #: ? [id number] ? Room: ? 1 ? Case Physician: [...] procedure was Urgent. The indication for ?the hemodialysis lab technician visit is stable kn own CAD. Chest [...] guiding catheter an d a 3.[address] [facility] [place] [address] ??20 Mhz ?using Manual pullback. ??Imagin [...] insertion was accomplished through a 6 Fr. Muari Right ? 2.0 guide. ?? e lesion was predilated with a 2.00mm NC EUPHORA ? 15 MM balloon w ith a maximum inflation pressure of 26 ? atmospheres. ?? A premounted 2.00 x 26 mm Hard[place]ep [place] (TUCKER) ? was deployed wi th a [...] Wedelivered along 2.0 x 26 mm HARDEEP [place] ? TUCKER stent and p ositioned it at the ostium of the RPDA ? extending into the mid RPDA and deployed it at 12 darshan. We then ? usedthe audraba maria antonia to post-dilate the stent to 20atm ? [...] dose administered prior to arrival in the hemodialysis lab technician. ?Recommended anti-platelet/anti- thrombotic regimen: ?Continue aspirin 81 [...] require ?modification of this regimen. C onsult [facility] Interventional Cardiology for ?questions. ?The 1 year bleeding risk as nusrat culated by the PRECISE DAPT score is High ?risk. ?High Bleeding Risk - Anticoagul ation and DAPT: ?- ??Assess ischemic and bleedin g risks using validated risk predictors ?(e.g. CHADS2-VASC, HAS-BLED, CA ECISE DAPT, DAPT Score) ?- ??Keep anticoagulant [...] using a 2.0 x 26 mm HARDEEP [place] TUCKER stent. ?This completes the revasculariz ation [...] MD CARDIAC CATH ORDERABLES Performing Organization Address [facility]/ZIP Code Phon e Number CARDIOMAC SYSTEM (ABNORMAL) POCT Glucose (01/30/2022 9:04 AM EDT) P athologist Signature POC Glucose 212 (H) 65 - 199 [facility] mg/dL [facility] Comment: Supplemental ranges: <140 mg/dL before meals <180 mg/dL all other times of the day Specimen Anatomical Collection Method Collection Time Receive d Time (Source) Location / / Volume Laterality Blood 01/30/2022 9:04 AM 2 9:04 EDT AM EDT Vitaliy Sandra Nobles MD POINT OF CARE TEST ORDERABLE S Performing Organization Address [facility]/[place]IP [place] [address] (ABNORMAL) POCT Glucose (01/30/2022 8:10 AM EDT) P athologist Signature POC Glucose 224 (H) 65 - 199 [facility] mg/dL [facility] Comment: Supplemental ranges: <140 mg/dL before meals <180 mg/dL all other times of the day Specimen Anatomical Collection Method Collection Time Receive d Time (Source) Location / / Volume Laterality Blood 01/30/2022 8:10 AM 2 8:10 EDT AM EDT Vitaliy Nobles MD POINT OF CARE TEST ORDERABLE S Performing Organization Address [facility]/[place] [address] documented in this encounter Visit Diagnoses Diagnosis ASCVD (arteriosclerotic cardiovascular d isease) Unspecified cardiovascular disease 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 ASHD (arteriosclerotic heart disease) Coronary atherosclerosis of unspecified type of vessel, hopi or graft ASCVD (arteriosclerotic cardiovascular d isease) Unspecified cardiovascular disease documented in this encounter Admitting Diagnoses Diagnosis CAD (coronary artery disease) Coronary atherosclerosis of unspecified type of vessel, hopi or graft documented in this encounter Administered [...] 10 15 (Continued Bag - Provider: Maddison Farmer, VAMSI) 50 mL/hr, Intravenous, CONTINUOUS, Start [...] Procedure), Routine niCARdipine (Cardene) (100 mcg/mL) dilution (TECHNICAL BUSINESS ANALYST) (CANCELED ) 0927 (Given - Provider: Vitaliy [...] (Intra-Procedure) documented in this encounter Care Teams Master [employer] Relationship Specialty Start Date End Date Lovely Vicente MD PCP - General 04/16/[address] [place] [address] documented as of this encounter
--- OUTSIDE RECORDS SUMMARY | 2022-02-20 01:39 | XMS_ITS | Encounter Summary ---
:1945 [place] [address] Care Team Providers Name Role Phone Lovely Vicente MD Primary Care Provider Encounter Details Date Type Department Care Team Description 12/30/2021 Notes Only Cardiac Rehab [facility] Linnea Deluca, VAMSI [facility] [place] [address] Social History Tobacco Use Types Packs/Day [...] Failure team. DX: HFrEF. Referral placed to [facility] documented in this encounter Plan of Treatment Upcoming Encounters Date Type Specialty Care Team Description 03/26/2022 Office Visit Cardiology Vitaliy Nobles MD [facility] ER [address] [place], [place] [address] (Wo rk) documented as of this encounter Visit Diagnoses Not on filedocumented in this encounter Care Teams Ballet Teacher Relationship Specialty Start Date End Date Lovely Vicente MD PCP - General 04/16/[address] [place] [address] documented as of this encounter
--- OUTSIDE RECORDS SUMMARY | 2022-02-20 01:39 | XMS_ITS | Encounter Summary ---
:1945 Author Organization [facility] [place] [address] Care Team Providers Name Role Phone Lovely Vicente MD Primary Care Provider Encounter Details Date Type Department Care Team Description 02/19/2022 Laboratory Appointment Lab 3L [facility] systolic [facility] [place] [id number] Social History Tobacco Use Types Packs/Day Years [...] MD [facility] ER CARDIOLOGY [place], [place] [address] (Wo rk) documented as of this encounter Procedures Procedure Name Priority Date/Time Associated Comments Diagnosis HEMOGRAM Routine 02/19/2022 8:06 AM Chronic systolic Resul ts for this EDT heart failure procedure are in the results section. DIFFERENTIAL, Routine 02/19/2022 8:06 AM Chronic systolic Resu lts for this AUTOMATED EDT heart failure procedure are in the results section. HC CBC,PLT & AUTO Routine 02/19/2022 8:06 AM Chronic systolic DIFF EDT heart failure HC PROBNP Routine 02/19/2022 8:06 AM Chronic systolic Resul ts for this EDT heart failure procedure are in the results section. HC VENIPUNCTURE Routine 02/19/2022 8:06 AM Chronic systolic Re sults for this EDT heart failure procedure are in the results section. documented in this encounter Results (ABNORMAL) Differential, Automated (02/19/2022 8:06 AM EDT) [facility] Method Time Signature Neutrophils % 76.0 % [facility] LABORATORY Neutr Abs (ANC) 5.49 1.70 - [facility] 6.10 [facility] x10(3)/[facility] LABORATORY Lymphocytes % 10.8 % [facility] Lymphocytes Abs 0.8 (L) 0.9 - 3.2 [facility] x10(3)/[facility] LABORATORY Monocytes % 10.2 % [facility] Monocyte Abs 0.7 0.3 - 0.9 [facility] x10(3)/[facility] LABORATORY Eosinophils % 1.2 % [facility] Eosinophils Abs 0.1 0.0 - 0.4 [facility] x10(3)/[facility] LABORATORY Basophils % 0.8 % [facility] Basophils Abs 0.1 0.0 - 0.1 [facility] x10(3)/[facility] LABORATORY Immature Gran % 1.00 % [facility] Comment: Immature granulocytes(IG's)percentage an d absolute count will include metamyelocytes, myelocytes, and promyelo cytes. Blood smears from CBCs yielding IG's will be scanned manually for concor dance. If this scan disagrees with the automated IG or if promyelocytes are not ed, a manual differential will be performed. Melisa Gran Abs 0.07 (H) 0.00 - 0.04 x10(3)/[facility] LABORATORY Specimen Anatomical Collection Method Collection Time Receive d Time (Source) Location / / Volume Laterality Blood 02/19/2022 8:06 AM 8:09 EDT AM EDT Resulting Agency Comment Spec In Lab Liz BROWN HEMATOLOGY ORDERABLES Performing Organization Address City/State/ZIP [place] [address] (ABNORMAL) Hemogram (02/19/2022 8:06 AM EDT) Analysis Performed At Patho logist Time Signature WBC 7.2 4.0 - 9.5 [facility] x10(3[facility] LABORATORY RBC 4.41 (L) 4.58 - [place] RYAN 5.54 [facility] x10(6)/[facility] LABORATORY Hemoglobin 13.2 (L) 13.7 - [facility] 16.5 g/dL [facility] LABORATORY Hematocrit 40.9 40.5 - [facility] 48.5 % [facility] LABORATORY MCV 92.7 82.9 - [facility] 93.1 [facility] LABORATORY MCH 29.9 27.5 - [facility] 32.1 pg [facility] LABORATORY MCHC 32.3 32.0 - [facility] 35.7 g/dL [facility] LABORATORY Platelets 191 145 - 357 [facility] x10(3)/[facility] LABORATORY RDWSD 53.6 (H) 36.0 - [facility] RYAN 45.0 [facility] LABORATORY RDWCV 15.6 (H) 11.4 - [facility] RYAN 13.8 % [facility] LABORATORY MPV 8.7 7.6 - 12.9 [facility] LABORATORY nRBC % Auto 0.0 % [facility] LABORATORY nRBC Abs Auto 0.000 0.000 - [facility] RYAN 0.000 [facility] x10(3)/[facility] LABORATORY Specimen Anatomical Collection Method Collection Time Receive d Time (Source) Location / / Volume Laterality Blood 02/19/2022 8:06 AM 8:09 EDT AM EDT Resulting Agency Comment Spec In Lab Liz BROWN HEMATOLOGY ORDERABLES Performing Organization Address City/State/ZIP [place] [address] (ABNORMAL) pro-Brain Natriuretic Peptide (02/19/2022 8:06 AM EDT) P athologist Signature ProBNP 984 (H) <=449 pg/mL [facility] LABORATORY Specimen Anatomical Collection Method Collection Time Receive d Time (Source) Location / / Volume Laterality Blood 02/19/2022 8:06 AM 8:09 EDT AM EDT Resulting Agency Comment Spec In Lab Zulma Plunkett MD CHEMISTRY ORDERABLES Performing Organization Address City/State/ZIP [place] [address] (ABNORMAL) Basic Metabolic Panel (non-fasting) (02/19/2022 8:06 AM EDT) P athologist Signature Glucose Lvl 139 65 - 199 [facility] mg/dL [facility] LABORATORY Comment: Diabetes: >=200 mg/dL plus symp toms BUN 31 (H) 10 - 20 mg/dL [facility] LABORATORY Creatinine 1.53 (H) 0.80 - 1.50 mg/dL [facility] LABORATORY Sodium 142 135 - 145 mmol/L [facility] LABOR[facility]ORY Potassium 5.4 (H) 3.5 - 5.0 mmol/L [facility] LABORATORY Comment: Please note: ??Patients with WBC >100,00 0 may have falsely elevated Potassium levels. ??For accurate Potassium quantif ication in these patients send serum separator tube (gold top) for subsequent determinations. ??Contact the Clinical Chemistry Laboratory if there are any qu estions. Chloride 100 98 - 107 mmol/L [facility] LABORATORY CO2 31 22 - 31 mmol/L [facility] Anion Gap 11 5 - 15 mmol/L [facility] LABORATORY Calcium 9.7 8.5 - 10.5 mg/dL [facility] LABORATORY Estimated GFR 47 (L) >=60 mL/min/1.73 m?? [facility] Comment: This patient's estimated GFR [...] / Volume Laterality Blood 02/19/2022 8:06 AM 8:09 EDT AM EDT Resulting Agency Comment Spec In Lab Zulma Plunkett MD CHEMISTRY ORDERABLES Performing Organization Address City/State/[place] [address] documented in this encounter Visit Diagnoses Diagnosis Chronic systolic heart failure documented in this encounter Care Teams Social Work Coordinator Relationship Specialty Start Date End Date Lovely Vicente MD PCP - General 04/16/[address] [place] [address] documented as of this encounter
--- OUTSIDE RECORDS SUMMARY | 2022-02-20 01:39 | XMS_ITS | Encounter Summary ---
:1945 Author Organization [facility] Address [facility] [place] [address] Care Team Providers Name Role Phone Lovely Vicente MD Primary Care Provider Reason for Visit Auth/Cert Specialty Diagnoses / Procedures Referred By Contact Refer red To Contact Diagnoses ASCVD (arteriosclerotic cardiovascular disease) [I25.10] Vitaliy Nobles MD [facility] Procedures PRO PERC TRLUML CORONARY STENT W/ANGIO ONE ART/BRANCH CARDIAC CATHETERIZATION STENT PLACEMENT-SINGLE MAJOR CORONARY ARTERY OR BRANCH [facility] [place] [address] Referral ID Status Reason Start Date Expiration Date Visits Requ ested Visits Authorized [id number] 1 1 Encounter Details Date Type Department Care Team Description 01/30/2022 Surgery Ripsaw Operator Asa Coulter MD CARDIAC CATHETERIZATION [facility] [place] [address] [place] [address] [phone] (Wo rk) Social History Tobacco Use Types [...] and Clopidogrel. Please follow up with your oncology technician in the next 4-6 weeks. We have made a referral to cardiac rehab. Please see the attached instructions regarding care to your right wrist access site. AttachmentsThe following attachments cannot be sent through Care Everywhere. Coronary Angiogram: Post-op (Danish)documented in this encounter Medications at Time of [...] Murray RN - 01/30/2022 4:54 PM EDT [facility] Short Stay Unit Discharge Note All [...] recent PCI presenting for staged PCI to [facility]. The pt states he has been ok. [...] recent PCI presenting for staged PCI to [facility]. The indications, expected benefits, and potential risks [...] encounter Miscellaneous Notes Consult Note - Rebeka Deluca, VAMSI - 01/30/2022 2:57 PM EDT Don Fatima was seen today by Cardiac Rehabilitation for: SD/PCI Activity evaluation - Per SSU team Don has history of prior OK and CABG. I had referred him to cardiac rehab at [facility] last month per HF team. He was waiting until this intervention before starting the program. Reviewed managing angina /use of sl nitroglycerin. Given parameters for home exercise. 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 We discussed short walks several times per day. Will send [facility] his discharge summary from this admission. The patient should be contacted by the Program within 1- 2 weeks from discharge. Brief Op Note - Vitaliy Nobles MD - 01/30/2022 10:19 AM EDT Images from the original note were not included. Formerly [facility] [place] [address] CORONARY ANGIOGRAM AND PERCUTANEOUS CORONARY INTERVENTION REPORT Patient: Don Fatima : 1945 MR number: [id number] Date of Service: 01/30/2022 Casting House Worker: Vitaliy Nobles MD Fellow: KEYON Elizabeth INDICATION: [...] long 2.0 x 26 mm HARDEEP Red Oak TUCKER stent and positioned it at the [...] a 2.0 x 26 mm HARDEEP Red Oak TUCKER stent. This completes the revascularization ofall [...] Nobles MD [facility] CARDIOLOGY [place] [phone] (Wo rk) Scheduled Orders Name Type Priority [...] P athologist Signature Neutrophils % 71.8 % [facility] LABORATORY Neutr Abs (ANC) 3.96 1.70 - [facility] 6.10 [facility] x10(3)/[facility] LABORATORY Lymphocytes % 16.3 % [facility] Lymphocytes Abs 0.9 0.9 - 3.2 [facility] x10(3)/[facility] LABORATORY Monocytes % 10.0 % [facility] Monocyte Abs 0.6 0.3 - 0.9 [facility] x10(3)/[facility] LABORATORY Eosinophils % 0.5 % [facility] Eosinophils Abs 0.0 0.0 - 0.4 [facility] x10(3)/[facility] LABORATORY Basophils % 0.5 % [facility] Basophils Abs 0.0 0.0 - 0.1 [facility] x10(3)/[facility] LABORATORY Immature Gran % 0.90 % [facility] [...] Organization Address City/State/[place] [address] (ABNORMAL) Hemogram (01/30/2022 2:12 PM EDT) Analysis Performed At Patho logist Time Signature WBC 5.5 4.0 - 9.5 [facility] x10(3)/[facility] LABORATORY RBC 4.30 (L) 4.58 - [facility] 5.54 [facility] x10(6)/[facility] LABORATORY Hemoglobin 12.7 (L) 13.7 - [facility] 16.5 g/dL [facility] LABORATORY Hematocrit 39.4 (L) 40.5 - [facility] RYAN 48.5 % [facility] LABORAT[facility] MCV 91.6 82.9 - [facility] RYAN 93.1 [facility] LABORATORY MCH 29.5 27.5 - [employer] 32.1 pg [facility]ORATORY MCHC 32.2 32.0 - [facility] 35.7 g/dL [facility] Platelets 172 145 - 357 [facility] x10(3)/[facility] LABORATORY RDWSD 54.5 (H) 36.0 - [place] 45.0 [facility] LABORATORY RDWCV 16.4 (H) 11.4 - [facility] RYAN 13.8 % [facility] LABORATORY MPV 9.2 7.6 - 12.9 [facility] LABORATORY nRBC % Auto 0.0 % [facility] LAB[facility] nRBC Abs Auto 0.000 0.000 - [facility] 0.000 [facility] x10(3)/[facility] LABORATORY Specimen Anatomical Collection Method Collection Time Receive d Time (Source) Location / / Volume Laterality Blood 01/30/2022 2:12 PM 2 2:37 EDT PM EDT Resulting Agency Comment Spec In Lab Eddi Elizabeth Jr., MD HEMATOLOGY ORDERABLES Performing Organization Address City/State/[place] [address] (ABNORMAL) Basic Metabolic Panel (non-fasting) (01/30/2022 2:12 PM EDT) P athologist Signature Glucose Lvl 163 65 - 199 [facility] mg/dL [facility] Comment: Diabetes: >=200 mg/dL plus symp toms BUN 30 (H) 10 - 20 mg/dL [facility] Creatinine 1.47 0.80 - [...] 15 mmol/L [facility] LAB[facility] Calcium 9.2 8.5 - [...] Nobles MD CHEMISTRY ORDERABLES Performing Organization Address City/[facility]/[place] [address] POCT Glucose (01/30/2022 1:41 PM EDT) athologist Signature POC Glucose 148 65 - 199 [facility] mg/dL [facility] Comment: Supplemental ranges: <140 mg/dL before meals <180 mg/dL all other times of the day Specimen Anatomical Collection Method Collection Time Receive d Time (Source) Location / / Volume Laterality Blood 01/30/2022 1:41 PM 2 1:41 EDT PM EDT Vitaliy Nobles MD POINT OF CARE TEST ORDERABLE S Performing Organization Address City/[facility]/[place] [address] POCT Glucose (01/30/2022 10:48 AM EDT) P athologist Signature POC Glucose 193 65 - 199 [place] mg/dL [facility] LAB[facility] Comment: Supplemental ranges: <140 mg/dL before meals <180 mg/dL all other times of the day Specimen Anatomical Collection Method Collection Time Receive d Time (Source) Location / / Volume Laterality Blood 01/30/2022 10:48 01/30/2022 AM EDT 10:48 AM EDT Vitaliy Nobles MD POINT OF CARE TEST ORDERABLE S Performing Organization Address City/[facility]/[place] [address] EKG 12 Lead (01/30/2022 10:33 AM EDT) Component Value Ref Range Test Analysis Performed Pathologis t Method Time At Signature Ventricular rate 64 BPM MUSE SYSTEM Atrial Rate 64 BPM MUSE SYSTEM P-R Interval 162 ms MUSE SYSTEM QRS Duration 94 ms MUSE SYSTEM Q-T Interval 422 ms MUSE SYSTEM QTC Calculated 435 ms MUSE SYSTEM (Bezet) Calculated P [place] 41 degrees MUSE SYSTEM Calculated R [place] -27 degrees MUSE SYSTEM Calculated T [place] 104 degrees MUSE SYSTEM INTERPRETATION Normal sinus rhythm MUSE SYSTEM Anterolateral infarct (cited on or before 09-DEC-2021) Abnormal ECG When compared with ECG of 10-DEC-2021 11:17, No significant change was found Confirmed by Gary Perez ([id number]) on 01/30/2022 5:57:5 2 PM Specimen Anatomical Collection Method Collection Time Receive d Time (Source) Location / / Volume Laterality 01/30/2022 10:33 01/30/2022 5:57 AM EDT PM EDT Vitaliy P Mallorie STRANGE ECG ORDERABLES Performing Organization Address City/State/ZIP Code Phon e Number MUSE SYSTEM CARDIAC CATHETERIZATION (01/30/2022 10:16 AM EDT) Specimen (Source) Anatomical Location Collection Method / Collectio n Time Received Time / Laterality Volume Narrative CARDIOMAC SYSTEM - 01/30/2022 2:09 PM ED T ?[facility] ? Cardiac Cathete rization/Intervention Report ? Patient Name: KushalDon ? Procedure Date: 01/30/2022 ? A #: [id number] ? Primary Physician: Vitaliy Nobles ? Case #: [id number] ? File Name: [id number] ? Catheterization Order Number: [id number] ? [facility] ? Final Report [place], [place] ? Patient Name: ? Don E. Stewa rt ? ID#: ?[id number] ? : ?1945 ? Procedure Date: ? January 30, 2022 ? Case #: ? [id number] ? Room: ? 1 ? Case Physician: ? Fabian Lopez ?Start: ?08:54 ?Fellow: ? Eddi Elizabeth Jr., Barbara ?Admission: ??01/30/2022 ? Procedures: ?* Coronary Angiography ?* Left Heart Catheterization ?* Bypass Graft Study ?* Coronary Ultrasound ?* Coronary Stent Insertion ?* Peripheral Intravascular Ultr asound ? History ?Donrory Fatima is a 76 year o ld [...] had a recent coronary ?intervention procedure. The mahesh spaulding had remote coronary artery bypass ?surgery. He [...] procedure was Urgent. The indication for ?the wheelabrator operator visit is stable kn own CAD. [...] guiding catheter an d a 3.5 Fr [facility] [address] ??20 Mhz ?using Manual pullback. ??Imagin [...] premounted 2.00 x 26 mm Hard[place]ep Red Oak (TUCKER) ? was deployed wi th a [...] along 2.0 x 26 mm HARDEEP Red Oak ? TUCKER stent and p ositioned it [...] dose administered prior to arrival in the wheelabrator operator. ?Recommended anti-platelet/anti- thrombotic regimen: ?Continue aspirin [...] ?modification of this regimen. C [facility] Interventional Cardiology for ?questions. ?The 1 year [...] a 2.0 x 26 mm HARDEEP Red Oak TUCKER stent. ?This completes the revasculariz ation [...] POC Glucose 212 (H) 65 - 199 [facility] mg/dL [facility] Comment: Supplemental ranges: <140 mg/dL before meals <180 mg/dL all other times of the day Specimen Anatomical Collection Method Collection Time Receive d Time (Source) Location / / Volume Laterality Blood 01/30/2022 9:04 AM 2 9:04 EDT AM EDT Vitaliy Nobles MD POINT OF CARE TEST ORDERABLE S Performing Organization Address [facility]/[place] [address] (ABNORMAL) POCT Glucose (01/30/2022 8:10 AM EDT) P athologist Signature POC Glucose 224 (H) 65 - 199 [facility] mg/dL [facility] Comment: Supplemental ranges: <140 mg/dL before meals <180 mg/dL all other times of the day Specimen Anatomical Collection Method Collection Time Receive d Time (Source) Location / / Volume Laterality Blood 01/30/2022 8:10 AM 2 8:10 EDT AM EDT Vitaliy Nobles MD POINT OF CARE TEST ORDERABLE S Performing Organization Address City/[facility]/[place] [address] documented in this encounter Visit Diagnoses Diagnosis ASCVD (arteriosclerotic cardiovascular d isease) Unspecified cardiovascular disease 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 ASHD (arteriosclerotic heart disease) Coronary atherosclerosis of unspecified type of vessel, [place] or graft ASCVD (arteriosclerotic cardiovascular d isease) Unspecified cardiovascular disease documented in this encounter Admitting Diagnoses Diagnosis CAD (coronary artery disease) Coronary atherosclerosis of unspecified type of vessel, [place] or graft documented in this encounter Administered [...] Given 02/2022 10:11 AM EDT 100 mcg (DAY CARE WORKER) ONCE PRN, Starting on Wed01/30/22 at 0927, [...] injection (CANCELED) 0855 (Given - Provider: Katerin Kay, VAMSI)0923 (Given - Provider: Katerin Kay RN) ONCE [...] Procedure), Routine niCARdipine (Cardene) (100 mcg/mL) dilution (DAY CARE WORKER) (CANCELED ) 0927 (Given - Provider: Vitaliy [...] (Intra-Procedure) documented in this encounter Care Teams Light Cleaner Relationship Specialty Start Date End Date Lovely Vicente MD PCP - General 04/16/[address] [place] [address] documented as of this encounter
--- OUTSIDE RECORDS SUMMARY | 2022-02-20 01:39 | XMS_ITS | Encounter Summary ---
:1945 Author Organization [facility] [place] [address] Care Team Providers Name Role Phone Lovely Vicente MD Primary Care Provider Reason for Visit Auth/Cert Specialty Diagnoses / Procedures Referred By Contact Refer red To Contact Diagnoses ASCVD (arteriosclerotic cardiovascular disease) [I25.10] Vitaliy Nobles MD [facility] Procedures PRO PERC TRLUML CORONARY STENT W/ANGIO ONE ART/BRANCH CARDIAC CATHETERIZATION STENT PLACEMENT-SINGLE MAJOR CORONARY ARTERY OR BRANCH [facility] [place] [address] Referral ID Status Reason Start Date Expiration Date Visits Requ ested Visits Authorized [id number] 1 1 Encounter Details Date Type Department Care Team Description 01/30/2022 Laboratory Lab 3L Barbara ASCVD (arterios clerotic Appointment [facility] cardiovas cular disease) [place] [address] Social History Tobacco Use Types Packs/Day Years [...] MD [facility] CARDIOLOGY [place], [place] [address] (Wo rk) documented as of [...] (ABNORMAL) Differential, Automated (01/30/2022 7:19 AM EDT) [facility] gist Method Time Signature Neutrophils % 77.9 % [facility] Neutr Abs (ANC) 5.31 1.70 - [facility] 6.10 [facility] x10(3)/[facility] LABORATORY Lymphocytes % 12.0 % [facility] Lymphocytes Abs 0.8 (L) 0.9 - 3.2 [facility] x10(3)/[facility] LABORATORY Monocytes % 8.1 % [facility] Monocyte Abs 0.6 0.3 - 0.9 [facility] x10(3)/[facility] LABORATORY Eosinophils % 0.4 % [facility] Eosinophils Abs 0.0 0.0 - 0.4 [facility] x10(3)/[facility] LABORATORY Basophils % 0.6 % [facility] Basophils Abs 0.0 0.0 - 0.1 [facility] x10(3)/[facility] LABORATORY Immature Gran % 1.00 % [facility] Comment: Immature granulocytes(IG's)percentage an d absolute count will include metamyelocytes, myelocytes, and promyelo cytes. Blood smears from CBCs yielding IG's will be scanned manually for concor danhaley. If this scan disagrees with the automated IG or if promyelocytes are not ed, a manual differential will be performed. Melisa Gran Abs 0.07 (H) 0.00 - 0.04 x10(3)/[facility] LABORATORY Specimen Anatomical Collection Method Collection Time Receive d Time (Source) Location / / Volume Laterality Blood 01/30/2022 7:19 AM 7:21 EDT AM EDT Resulting Agency Comment Spec In Lab Zulma BROWN HEMATOLOGY ORDERABLES Performing Organization Address City/State/[place] [address] (ABNORMAL) Hemogram (01/30/2022 7:19 AM EDT) Analysis Performed At Patho logist Time Signature WBC 6.8 4.0 - 9.5 [facility] x10(3)/[facility] LABORATORY RBC 4.32 (L) 4.58 - [facility] RYAN 5.54 [facility] x10(6)/[facility] LABORATORY Hemoglobin 13.0 (L) 13.7 - [facility] 16.5 g/dL [facility] Hematocrit 39.8 (L) 40.5 - [facility] 48.5 % [facility] MCV 92.1 82.9 - [facility] 93.1 [facility] LABORATORY MCH 30.1 27.5 - [facility] 32.1 pg [facility] MCHC 32.7 32.0 - [facility] 35.7 g/dL [facility] Platelets 172 145 - 357 [facility] x10(3)/[facility] LABORATORY RDWSD 54.5 (H) 36.0 - [facility] RYAN 45.0 [facility] LABORATORY RDWCV 16.2 (H) 11.4 - [facility] RYAN 13.8 % [facility] LABORATORY MPV 9.0 7.6 - 12.9 [facility] LABORATORY nRBC % Auto 0.0 % [facility] LAB[facility]ATORY nRBC Abs Auto 0.000 0.000 - [facility] RYAN 0.000 [facility] x10(3)/[facility] LABORATORY Specimen Anatomical Collection Method Collection Time Receive d Time (Source) Location / / Volume Laterality Blood 01/30/2022 7:19 AM 7:21 EDT AM EDT Resulting Agency Comment Spec In Lab Zulma BROWN HEMATOLOGY ORDERABLES Performing Organization Address City/State/[place] [address] (ABNORMAL) Basic Metabolic Panel (non-fasting) (01/30/2022 7:19 AM EDT) athologist Signature Glucose Lvl 237 (H) 65 - 199 [facility] mg/dL [facility]OR[facility] Comment: Diabetes: >=200 mg/dL plus symp toms BUN 34 (H) 10 - 20 mg/dL [facility] LABORATORY Creatinine 1.45 0.80 - 1.50 mg/dL [facility] LABORATORY Sodium 141 135 - 145 mmol/L [facility] Potassium 4.7 3.5 - 5.0 mmol/L [facility] Comment: Please note: ??Patients with WBC >100,00 0 may have falsely elevated Potassium levels. ??For accurate Potassium quantif ication in these patients send serum separator tube (gold top) for subsequent determinations. ??Contact the Clinical Chemistry Laboratory if there are any qu estions. Chloride 100 98 - 107 mmol/L [facility] CO2 30 22 - 31 mmol/L [facility] Anion Gap 11 5 - 15 mmol/L [facility] LAB[facility] Calcium 9.5 8.5 - 10.5 mg/dL [facility] LABORATORY Estimated GFR 50 (L) >=60 mL/min/1.73 m?? [facility] [...] Organization Address City/State/[place] [address] documented in this encounter Visit Diagnoses Diagnosis ASCVD (arteriosclerotic cardiovascular d isease) Unspecified cardiovascular disease documented in this encounter Care Teams Disposal Operator Relationship Specialty Start Date End Date Lovely Vicente MD PCP - General 04/16/[address] [place] [address] documented as of this encounter
--- OUTSIDE RECORDS SUMMARY | 2022-02-20 01:39 | XMS_ITS | Encounter Summary ---
:1945 [place] [address] Care Team Providers Name Role Phone Lovely Vicente MD Primary Care Provider Encounter Details Date Type Department Care Team Description 01/28/2022 Orders Only Gore Maker Zulma Finch ASCVD (art eriosclerotic [facility] cardiovascular disease) [facility] [place] [address] [place], [place] [phone] (Work) [phone] Social History Tobacco Use Types Packs/Day Years [...] Nobles MD [facility] DR [place], [place] [address] (Wo rk) documented as of this encounter Results (ABNORMAL) Basic Metabolic Panel (non-fasting) (01/30/2022 7:19 AM EDT) athologist Signature Glucose Lvl 237 (H) 65 - 199 [facility] mg/dL [facility] LABORATORY Comment: Diabetes: >=200 mg/dL plus symp toms BUN 34 (H) 10 - 20 mg/dL [facility] LABORATORY Creatinine 1.45 0.80 - 1.50 mg/dL [facility] LABORATORY Sodium 141 135 - 145 mmol/L [facility] [...] 107 mmol/L [facility] LAB[facility] CO2 30 22 - 31 mmol/L [facility] Anion Gap 11 5 - 15 mmol/L [facility] LABOR[facility]ORY Calcium 9.5 8.5 - 10.5 mg/dL [facility] Estimated GFR 50 (L) >=60 mL/min/1.73 m?? [facility] Comment: This patient's estimated [...] Organization Address City/State/[place] [address] documented in this encounter Visit Diagnoses Diagnosis ASCVD (arteriosclerotic cardiovascular d isease) Unspecified cardiovascular disease documented in this encounter Care Teams School Guard Relationship Specialty Start Date End Date Lovely Vicente MD PCP - General 04/16/[address] [place] [address] documented as of this encounter
--- OUTSIDE RECORDS SUMMARY | 2022-02-20 01:39 | XMS_ITS | Encounter Summary ---
:1945 Author Organization [facility] [place] [address] Care Team Providers Name Role Phone Lovely Vicente MD Primary Care Provider Encounter Details Date Type Department Care Team Description 12/25/2021 Laboratory Appointment Lab 3L [facility] systolic [facility] [place] [id number] Social History Tobacco Use Types Packs/Day Years [...] Nobles MD [facility] ER CARDIOLOGY [place], [place] [address] (Wo rk) documented [...] (ABNORMAL) Differential, Automated (12/25/2021 7:46 AM EDT) [facility] Method Time Signature Neutrophils % 82.6 % [facility] Neutr Abs (ANC) 9.37 (H) 1.70 - [facility] 6.10 [facility] x10(3)/[facility] LABORATORY Lymphocytes % 7.1 % [facility] Lymphocytes Abs 0.8 (L) 0.9 - 3.2 [facility] x10(3)/[facility] LABORATORY Monocytes % 8.8 % [facility] Monocyte Abs 1.0 (H) 0.3 - 0.9 [facility] x10(3)/[facility] LABORATORY Eosinophils % 0.4 % [facility] Eosinophils Abs 0.0 0.0 - 0.4 [facility] x10(3)/[facility] LABORATORY Basophils % 0.4 % [facility] Basophils Abs 0.0 0.0 - 0.1 [facility] x10(3)/[facility] LABORATORY Immature Gran % 0.70 % NOR[facility] [...] Abs 0.08 (H) 0.00 - 0.04 x10(3)/[facility] LABORATORY Specimen Anatomical Collection Method Collection Time Receive d Time (Source) Location / / Volume Laterality Blood 12/25/2021 7:46 AM 8:01 EDT AM EDT Resulting Agency Comment Spec In Lab Liz Poole STEPHANIE HEMATOLOGY ORDERABLES Performing Organization Address City/State/[place] [address] (ABNORMAL) Hemogram (12/25/2021 7:46 AM EDT) Analysis Performed At Patho logist Time Signature WBC 11.4 (H) 4.0 - 9.5 [facility] x[facility](3[facility] LABORATORY RBC 4.23 (L) 4.58 - [place] 5.54 [facility] x10(6)/[facility] LABORATORY Hemoglobin 12.3 (L) 13.7 - [facility] 16.5 g/dL [facility] LABOR[facility]ORY Hematocrit 37.7 (L) 40.5 - [facility] 48.5 % [facility] LABORATORY MCV 89.1 82.9 - [facility] 93.1 [facility] LABORATORY MCH 29.1 27.5 - [place] 32.1 pg [facility] LABORATORY MCHC 32.6 32.0 - [place] 35.7 g/dL [facility]ORATORY Platelets 215 145 - 357 [facility] x10(3)/[facility] LABORATORY RDWSD 49.8 (H) 36.0 - [place] 45.0 [facility] LABORATORY RDWCV 15.2 (H) 11.4 - [facility] RYAN 13.8 % [facility] LABORATORY MPV 9.2 7.6 - 12.9 [facility] LABORATORY nRBC % Auto 0.0 % [facility] nRBC Abs Auto 0.000 0.000 - [facility] RYAN 0.000 [facility] x10(3)/[facility] LABORATORY Specimen Anatomical Collection Method Collection Time Receive d Time (Source) Location / / Volume Laterality Blood 12/25/2021 7:46 AM 8:01 EDT AM EDT Resulting Agency Comment Spec In Lab Liz Poole STEPHANIE HEMATOLOGY ORDERABLES Performing Organization Address City/State/[place] [address] (ABNORMAL) Basic Metabolic Panel (non-fasting) (12/25/2021 7:46 AM EDT) P athologist Signature Glucose Lvl 272 (H) 65 - 199 [facility] mg/dL [facility] LABORATORY Comment: Diabetes: >=200 mg/dL plus symp toms BUN 62 (H) 10 - 20 mg/dL [facility]OR[facility] Creatinine 1.81 (H) 0.80 - [...] 15 mmol/L [facility] Calcium 9.4 8.5 - 10.5 [...] Organization Address City/State/[place] [address] (ABNORMAL) pro-Brain Natriuretic Peptide (12/25/2021 7:46 AM EDT) P athologist Signature ProBNP 1,380 (H) <=124 [facility] RYAN pg/mL [facility] LABORATORY Specimen Anatomical Collection Method Collection Time Receive d Time (Source) Location / / Volume Laterality Blood 12/25/2021 7:46 AM 8:01 EDT AM EDT Resulting Agency Comment Spec In Lab Zulma Plunkett MD CHEMISTRY ORDERABLES Performing Organization Address City/[facility]/[place] [address] documented in this encounter Visit Diagnoses Diagnosis Chronic systolic heart failure documented in this encounter Care Teams Die Cutter Operator Relationship Specialty Start Date End Date Lovely Vicente MD PCP - General 04/16/[address] [place] [address] documented as of this encounter
--- OUTSIDE RECORDS SUMMARY | 2022-02-20 01:39 | XMS_ITS | Encounter Summary ---
:1945 [place] [address] Care Team Providers Name Role Phone Lovely Vicente MD Primary Care Provider Encounter Details Date Type Department Care Team Description 12/25/2021 Office Visit Cardiology at [facility] Liz Poole, Chronic systolic heart [facility] [place] [address] Cardiology Dept [phone] [place], [place] [address] Social History Tobacco Use Types [...] As per DC Summary - Admitted to [facility] on 12/08/21, transferred from [facility], respiratory distress with hypoxia [...] mg PO daily in place of Lasix. [place] is new for him and he will [...] Antiplatelet (DAPT) Recommendations above ? TTE from [facility] 12/08/21 ?? 07/28/2019 Echocardiogram: SUMMARY: 1. [...] regurgitation present. 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 Post-op atrial fibrillation [id number] (CHF, HTN, DM, vascular disease, thromboembolism) Eliquis 7. PAD 08/06/2017: Right 1st, 2nd, 3rd toe amputation 08/11/2017: Left??femoral arterial access, RLE??angiogram, Balloon angioplasty of R PT 10/25/2017: right popliteal-pedal bypass at [facility] 8. Hypothyrodism S/p thyroidectomy for goiter Levothyroxine ?? Plan: 1 month follow up with labs Liz Poole PA-C 12/25/2021 documented in this encounter Plan of Treatment Upcoming Encounters Date Type Specialty Care Team Description 03/26/2022 Office Visit Cardiology Vitaliy Nobles MD [facility] MEDICAL [facility] CARDIOLOGY [place], [place] [address] (Wo rk) documented as of this encounter Results (ABNORMAL) pro-Brain Natriuretic Peptide (12/25/2021 7:46 AM EDT) athologist Signature ProBNP 1,380 (H) <=124 [facility] pg/mL [facility] LABOR[facility]ORY Specimen Anatomical Collection Method Collection Time Receive d Time (Source) Location / / Volume Laterality Blood 12/25/2021 7:46 AM 8:01 EDT AM EDT Resulting Agency Comment Spec In Lab Zulma Plunkett MD CHEMISTRY ORDERABLES Performing Organization Address City/State/[place] [address] (ABNORMAL) Basic Metabolic Panel (non-fasting) (12/25/2021 7:46 AM EDT) athologist Signature Glucose Lvl 272 (H) 65 - 199 [facility] mg/dL [facility] Comment: Diabetes: >=200 mg/dL plus symp toms BUN 62 (H) 10 - 20 mg/dL [facility] Creatinine 1.81 (H) 0.80 - 1.50 mg/dL [facility] [...] Chloride 95 (L) 98 - 107 mmol/L [facility] CO2 28 22 - 31 mmol/L [facility] Anion Gap 11 5 - 15 mmol/L [facility] Calcium 9.4 8.5 - 10.5 mg/dL [facility] Estimated GFR 36 (L) >=60 mL/min/1.73 m?? [facility] Comment: This patient? s estimated [...] Address City/State/[place] [address] documented in this encounter Visit Diagnoses Diagnosis Chronic systolic heart failure documented in this encounter Care Teams Showcase Trimmer Relationship Specialty Start Date End Date Lovely Vicente MD PCP - General 04/16/[address] [place] [address] documented as of this encounter
--- OUTSIDE RECORDS SUMMARY | 2022-02-20 01:39 | XMS_ITS | Encounter Summary ---
:1945 Author Organization [facility] [place] [address] Care Team Providers Name Role Phone Lovely Vicente MD Primary Care Provider Reason for Visit Reason Onset Date Comments Medication Refill 12/12/2021 Torsemide Encounter Details Date Type Department Care Team Description 12/12/2021 Refill Cardiology at [facility] Janneth Padilla, Medication Refill [facility] STEPHANIE (Torsemide) [place] [address] CARDIOLOGY DEPT. [place], [place] [address] (Wo rk) Social History Tobacco [...] Nobles MD [facility] ER DR [place]O [place], [place] [address] (Wo rk) documented as of this encounter Visit Diagnoses Diagnosis Chronic systolic heart failure documented in this encounter Care Teams Line Out Man Relationship Specialty Start Date End Date Lovely Vicente MD PCP - General 9/22/[address] [place] [address] documented as of this encounter
--- OUTSIDE RECORDS SUMMARY | 2022-02-20 01:39 | XMS_ITS | Clinical Summary ---
:1945 Author Organization [facility] [place] [address] Care Team Providers Name Role Phone Lovely [...] (Lipitor) 40 Take 10 mg by mouth 0 Active mg Tablet daily. 5 days weekly. insulin lispro (HumaLOG) Inject 25 Units 0 Active Insulin Pen subcutaneously 3 times daily (before meals). losartan (COZAAR) 100 mg Take 50 mg by mouth 0 04/14 Active Tablet daily. ferrous sulfate 325 mg (65 Take 325 mg by mouth 0 Active mg iron) Tablet daily (with breakfast). Tablet 4 days a week. clopidogreL (Plavix) 75 mg Take 1 tablet [...] 40 mg Tablet, Delayed daily. Release (E.C.) clobetasoL (TEMOVATE) 0.05 APPLY TOPICALLY DAILY 0 09/02/2021 Active % Solution NEEDED FOR RASH torsemide (Demadex) 20 mg Take 1 tablet by mouth 30 tablet 11 0 12/25/2021 Active TabletIndications: Chronic daily. systolic heart failure ASPIRIN ORAL Take 81 mg by mouth. 0 Active apixaban (Eliquis) 5 mg Take 1 tablet by mouth 2 180 tablet 3 02/19/2022 Active Tablet times daily. spironolactone (Aldactone) Take 0.5 tablets by mouth 45 tablet 3 02/19/2022 Active 25 mg Tablet daily. sacubitriL-valsartan Take 1 tablet by mouth 2 60 tablet 11 01/24 Active (Entresto) 24-26 mg Tablet times daily. 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; ASHD (arteriosc lerotic heart disease) 01/28/2022 Orders Only Cardiology JEMIMA Gannon PA (arteriosclerot ic cardiovascular disease) 01/28/2022 Telephone Cardiology Chitra Angela Advice Only VAMSI Gomes 12/30/2021 Notes Only Cardiology Rebeka Deluca RN 12/25/2021 Office Visit Cardiology Ivone Poole systissac c heart Liz, PA failure 12/25/2021 Laboratory Lab Chronic systoli c heart Appointment failure 12/24/2021 Telephone [facility] Dayami Buckner 12/24/2021 Orders Only Cardiology JEMIMA [...] Pulse 69 02/19/2022 8:32 AM EDT Temperature 36.7 ??C (98.1 ??F) 01/30/2022 12:38 PM EDT Respiratory Rate 17 01/30/2022 12:38 PM EDT Oxygen Saturation 100% 02/19/2022 8:32 AM EDT Inhaled Oxygen Concentration - - Weight 89.4 kg (197 lb) 02/19/2022 8:32 AM EDT Height 172.7 cm (5' 8) 02/19/2022 8:32 AM EDT Reported Body Mass Index 29.95 02/19/2022 8:32 AM EDT Plan of Treatment Upcoming Encounters Date Type Specialty Care Team Description 03/26/2022 Office Visit Cardiology Vitaliy Nobles MD [facility] [place], [place] [address] (Wo rk) Health Maintenance Due Date Last Done Comments Covid-19 Vaccine (#1) 1950 Pneumoccocal Vaccine: 65+ (1 - PCV) 1952 Hepatitis C Screening 1964 Tdap adult 1965 Tetanus vaccine 1965 Zoster vaccine (1 of 2) 1996 AAA Screen 2011 Colonoscopy 01/16/2019 01/16/2014, 01/16/2014 Influenza (Flu) vaccine (1 of 1 - 03/26/2022 03/29/2013, Influenza standard series) Medical Devices Implanted Type Area Clay Preparation Supervisor Device Shelf Model / Identifier Expiration Serial / Date Lot Cable,Cut,Edg,Blnt,Ss,3tpr ([id number]) - [id number] IMPLANTS Midline: [employer] 04/01/2022 [id number] / Implanted: Qty: 4 on 07/07/2017 by Yuan Retana MD at [facility] [employer] - / [id number] Procedures Procedure Name Priority Date/Time Associated Diagnosis Comme nts DIFFERENTIAL, AUTOMATED Routine 02/19/2022 8:06 Chronic systol ic Results for this AM EDT heart failure procedure are in the results section. HEMOGRAM Routine 02/19/2022 8:06 Chronic systolic Results for this AM EDT heart failure procedure are in the results section. HC CBC,PLT & AUTO DIFF Routine 02/19/2022 8:06 Chronic systoli c AM EDT heart failure HC PROBNP Routine 02/19/2022 8:06 Chronic systolic Results for this AM EDT heart failure procedure are in the results section. HC VENIPUNCTURE Routine 02/19/2022 8:06 Chronic systolic Resul ts for this AM EDT heart failure procedure are in the results section. DIFFERENTIAL, AUTOMATED Routine 01/30/2022 [...] from Last 3 Months Results (ABNORMAL) Hemogram (02/19/2022 8:06 AM EDT)Only the most recent of9 results within the time period is included. Analysis Performed At Patho logist Time Signature WBC 7.2 4.0 - 9.[address] [facility] x[facility](3[facility] LABORATORY RBC 4.41 (L) 4.58 - [place] SU 5.54 [facility] x10(6)/[facility] LABORATORY Hemoglobin 13.2 (L) 13.7 - [place] [facility] 16.5 g/dL [facility] LABORATORY Hematocrit 40.9 40.5 - [place] [facility] 48.5 % [facility] LABORATORY MCV 92.7 82.9 - [place] 93.1 [facility] LABORATORY MCH 29.9 27.5 - [place] 32.1 pg [facility] LABORATORY MCHC 32.3 32.0 - [place] [facility] 35.7 g/dL [facility] LABORATORY Platelets 191 145 - 357 [facility] x10(3)/[facility] LABORATORY RDWSD 53.6 (H) 36.0 - G[employer] MobileSU 45.0 [facility] LABORATORY RDWCV 15.6 (H) 11.4 - [place] 13.8 % [facility] LABORATORY MPV 8.7 7.6 - 12.9 [facility] nRBC % Auto 0.0 % [facility] LABORATORY nRBC Abs Auto 0.000 0.000 - [place] 0.000 [facility] x10(3)/[facility] LABORATORY Specimen Anatomical Collection Method Collection Time Receive d Time (Source) Location / / Volume Laterality Blood 02/19/2022 8:06 AM 8:09 EDT AM EDT Resulting Agency Comment Spec In Lab Liz Poole STEPHANIE HEMATOLOGY ORDERABLES Performing Organization Address City/State/ZIP [place] [address] (ABNORMAL) Differential, Automated (02/19/2022 8:06 AM EDT)Only the most recent of9 resultswithin the time period is included. [facility] Method Time Signature Neutrophils % 76.0 % [facility] LABORATORY Neutr Abs (ANC) 5.49 1.70 - [facility] 6.10 [facility] x10(3)/[facility] LABORATORY Lymphocytes % 10.8 % [facility] LABORATORY Lymphocytes Abs 0.8 (L) 0.9 - 3.2 [facility] x10(3)/[facility] LABORATORY Monocytes % 10.2 % [facility] LABORATORY Monocyte Abs 0.7 0.3 - 0.9 [facility] x10(3)/[facility] LABORATORY Eosinophils % 1.2 % [facility] LABORATORY Eosinophils Abs 0.1 0.0 - 0.4 [facility] x10(3)/[facility] LABORATORY Basophils % 0.8 % [facility] LABORATORY Basophils Abs 0.1 0.0 - 0.1 [facility] x10(3)/[facility] LABORATORY Immature Gran % 1.00 % MOUNT [...] 0.07 (H) 0.00 - 0.04 x10(3)/[facility] LABORATORY Specimen Anatomical Collection Method Collection Time Receive d Time (Source) Location / / Volume Laterality Blood 02/19/2022 8:06 AM 8:09 EDT AM EDT Resulting Agency Comment Spec In Lab Liz Brownnidhi BROWN HEMATOLOGY ORDERABLES Performing Organization Address City/State/[place] [address] (ABNORMAL) pro-Brain Natriuretic Peptide (02/19/2022 8:06 AM EDT)Only the most recent of2 resultswithin the time period is included. athologist Signature ProBNP 984 (H) <=449 pg/mL [facility] LABORATORY Specimen Anatomical Collection Method Collection Time Receive d Time (Source) Location / / Volume Laterality Blood 02/19/2022 8:06 AM 8:09 EDT AM EDT Resulting Agency Comment Spec In Lab Zulma Plunkett MD CHEMISTRY ORDERABLES Performing Organization Address City/State/[place] [address] (ABNORMAL) Basic Metabolic Panel (non-fasting) (02/19/2022 8:06 AM EDT)Only the most recent of7 resultswithin the time period is included. athologist Signature Glucose Lvl 139 65 - 199 [facility] mg/dL [facility] LABORATORY Comment: Diabetes: >=200 mg/dL plus symp toms BUN 31 (H) 10 - 20 mg/dL [facility] LABORATORY Creatinine 1.53 (H) 0.80 - 1.50 mg/dL [facility] LABORATORY Sodium 142 135 - 145 mmol/L [facility] LABORATORY Potassium 5.4 (H) 3.5 - 5.0 mmol/L [facility] [...] Anion Gap 11 5 - 15 mmol/L [facility] LABORATORY Calcium 9.7 8.5 - 10.5 mg/dL [facility] [...] Organization Address City/State/ZIP Code Phon e Number [address] POCT Glucose (01/30/2022 1:41 PM EDT)Only the most recent of36 resultswithin the time period is included. P athologist Signature POC Glucose 148 65 - 199 [facility] mg/dL [facility] LABORATORY Comment: Supplemental ranges: <140 mg/dL before meals <180 mg/dL all other times of the day Specimen Anatomical Collection Method Collection Time Receive d Time (Source) Location / / Volume Laterality Blood 01/30/2022 1:41 PM 2 1:41 EDT PM EDT Vitaliy Nobles MD POINT OF CARE TEST ORDERABLE S Performing Organization Address City/State/[place] [address] EKG 12 Lead (01/30/2022 [...] 435 ms MUSE SYSTEM (Bezet) Calculated P [place] 41 degrees MUSE SYSTEM Calculated R [place] -27 degrees MUSE SYSTEM Calculated T [place] 104 degrees MUSE SYSTEM INTERPRETATION Normal sinus rhythm MUSE SYSTEM Anterolateral infarct (cited on or before 09-DEC-2021) Abnormal ECG When compared with ECG of 10-DEC-2021 11:17, No significant change was found Confirmed by Gary Perez ([id number]) on 01/30/2022 5:57:5 2 PM Specimen Anatomical [...] SYSTEM - 01/30/2022 2:09 PM ED T ?[facility] ? Cardiac Cathete rization/Intervention Report ? Patient Name: Don Fatima ? Procedure Date: 01/30/2022 ? A #: [id number] ? Primary Physician: Nobles, Vitaliy P ? Case #: [id number] ? File Name: [id number] ? Catheterization Order Number: [id number] ? [facility] ? Final Report [place], [place] ? Patient Name: ? Don E. Stewa rt ? ID#: ?[id number] ? : ?1945 ? Procedure Date: ? January 30, 2022 ? Case #: ? [id number] ? Room: ? 1 ? Case Physician: ? Vitaliy Nobles M. D. ?Start: ?08:54 ?Fellow: ? Eddi Elizabeth Jr. M.D. ?Admission: ??01/30/2022 ? Procedures: ?* Coronary [...] procedure was Urgent. The indication for ?the labels molder visit is stable kn own CAD. Chest [...] guiding catheter an d a 3.[address] [facility] [place] [address] ??20 Mhz ?using Manual pullback. ??Imagin [...] ?? A premounted 2.00 x 26 mm [place] (TUCKER) ? was deployed wi a maximum [...] Wedelivered along 2.0 x 26 mm [place] ? TUCKER stent and p ositioned [...] dose administered prior to arrival in the labels molder. ?Recommended anti-platelet/anti- thrombotic regimen: ?Continue aspirin 81 [...] require ?modification of this regimen. C onsult [facility] Interventional Cardiology for ?questions. ?The 1 year [...] using a 2.0 x 26 mm [place] TUCKER stent. ?This completes the revasculariz [...] ? Report Finalized: 01/30/2022 ??14:02 ? Vitaliy P Nobles MD CARDIAC CATH ORDERABLES Performing Organization Address City/State/ZIP Code Phon e Number CARDIOMAC SYSTEM SCAN DOC: LAB (12/30/2021 12:00 AM EDT)Only the most recent of2 resultswithin the time period is included. Narrative This result has an attachment that is no t available. Unknown MEDIA MGR SCAN EXT ORDR/RSLT SCAN DOC: TELEMETRY STRIPS (12/12/2021 6:00 AM EDT)Only the most recent of10 resultswithin the time period is included. Narrative This result has an attachment that is no t available. Unknown MEDIA MGR SCAN EXT ORDR/RSLT (ABNORMAL) BMP w/fasting Glucose (12/12/2021 4:51 AM EDT)Only the most recent of 4 resultswithin the time period is included. athologist Signature Glucose 152 (H) 65 - 99 [facility] Fasting mg/dL [facility] LABORATORY Comment: [...] of Diabetes Mellitus, Position Statement from the [place] Diabetes Association. ??Diabete s Care, Volume 33, Supplement 1, Jul 2009 BUN 52 (H) 10 - 20 mg/dL [facility] LABORATORY Creatinine 1.72 (H) [...] estions. Chloride 105 98 - 107 mmol/L [facility] LABORATORY CO2 21 (L) 22 - 31 mmol/L [facility] LABORATORY Anion Gap 17 (H) 5 - 15 mmol/L [facility] LABORATORY Calcium 8.9 8.5 - 10.5 mg/dL [facility] LABORATORY Estimated GFR 38 (L) >=60 mL/min/1.73 m?? [facility] [...] Address City/State/ZIP [place] [address] (ABNORMAL) Prothrombin Time (12/12/2021 4:51 AM EDT)Only the most recent of4 resultswithin the time period is included. P athologist Signature PT 14.9 (H) 9.4 - 12.5 [facility] LABORATORY INR 1.3 [facility] LABORATORY Comment: An INR [...] Organization Address City/State/ZIP Code Phon e Number [address] Magnesium (12/12/2021 4:51 AM EDT)Only the most recent of5 resultswithin the time period is included. P athologist Signature Magnesium 1.02 0.69 - 1.07 [facility] mmol/L [facility] LABORATORY Specimen Anatomical Collection Method Collection Time Receive d Time (Source) Location / / Volume Laterality Blood 12/12/2021 4:51 AM 2 5:06 EDT AM EDT Resulting Agency Comment Spec In Lab Iker Cuevas MD CHEMISTRY ORDERABLES Performing Organization Address City/[facility]/[place] [address] COVID-19 PCR (12/11/2021 10:13 AM EDT) Patholo gist Method Time Signature SARS-CoV-2 Not Detected Not Detected [facility] LABORATORY Comment: This result should [...] diagnosis of COVID-19 is performed using the [employer] RONNA S-CoV-2 Assay as authorized by the FDA Emergency Use Authorization (EUA). This EUA assay is intended for In-vitro Diagnostic (IVD) use with respiratory sp ecimens such as nasopharyngeal swabs collected from individuals during the ac terrence phase of infection. This assay is performed based on the instructions for use provided by [employer] and additional guidance provided by CDC and FDA. Testing is performed in the [facility] y Laboratory within the Department of Pathology and Laboratory Medicine at [facility], certified under the Clinical Laboratory Improvement Amendments [...] fact sheets at the following FDA website: https://www.fda.gov/medical-devices/sflnodhtzzb-hdrnugz-8193-xbhvh-56-emgcryhhg- xqo-sdocqbjmnpkrun-vuxpaxj-devices/hqzfv-eoviqiftzrf-kyop SARS-Cov-2 RNA Source [employer] Swab [facility] LABORATORY Specimen (Source) Anatomical Collection Method Collection Time Re ceived Time Location / / Volume Laterality Nasopharyngeal Swab 12/11/2021 10:13 0503/2022 AM EDT 11:16 AM EDT Comment: Symptoms->Surveillance Resulting Agency Comment Spec In Lab Iker Cuevas MD MICROBIOLOGY - GENERAL ORDER [place] Performing Organization Address City/[facility]/ZIP [facility] [place] [address] Potassium (12/10/2021 7:46 PM EDT) P athologist Signature Potassium 4.2 3.5 - 5.0 [facility] mmol/L [facility] LABORATORY Comment: Please note: [...] Cuevas MD CHEMISTRY ORDERABLES Performing Organization Address [facility]/ZIP [facility] [place] [address] (ABNORMAL) Point of Care Blood Gas Historical (12/10/2021 9:04 AM EDT) Patholo gist Method Time Signature POC pH 7.40 7.35 - [facility] 7.45 [facility] LABORATORY POC PCO2 40 35 - 45 [facility] mmHg [facility] LABORATORY POC PO2 63 (L) 85 - 104 [facility] mmHg [facility] LABORATORY POC Base Excess 0.0 -3.0 - 3.0 [facility] K mmol/L [facility] LABORATORY POC HCO3 24.8 20.0 [facility] 26.0 [facility] mmol/[facility] LABORATORY POC Sodium 143 135 - [address] [facility] mmol/L [facility] LABORATORY POC Potassium 3.7 3.5 - 5.0 [facility] mmol/L [facility] LABORATORY POC Ionized Ca 1.07 (L) 1.15 - [facility] 1.33 [facility] mmol/[facility] LABORATORY POC Hematocrit 30.0 (L) 40.0 - [facility] 51.0 % [facility] LABORATORY POC Calc Hgb 10.2 (L) 13.7 - [facility] 17.5 g/dL [facility] LABORATORY Comment: The calculation of hemoglobin f rom hematocrit assumes a normal MCHC. POC Bgas Loc CC LAB [facility] LABORATORY Specimen Anatomical Collection Method Collection Time Receive d Time (Source) Location / / Volume Laterality Blood 12/10/2021 9:04 AM 2 EDT 12:00 PM EDT Ifeanyi Truong MD CHEMISTRY ORDERABLES Performing Organization Address City/State/ZIP [place] [address] Heparin (unfractionated) Level (12/10/2021 4:25 AM EDT)Only the most recent of5 resultswithin the time period is included. P athologist Signature Heparin UFH 0.69 IU/mL [facility] LABORATORY Comment: Heparin (anti-Xa) levels should [...] Cuevas MD HEMATOLOGY ORDERABLES Performing Organization Address City/[facility]/[place] [address] (ABNORMAL) Troponin (12/09/2021 6:18 AM EDT)Only the most recent of3 results within the time period is included. athologist Signature Troponin-T 1.13 (H) 0.00 - [...] additional sample may be indicated. Reference: Third [place] Definition of Myocardial Infarction. Journal of the [place] College of Cardiology 2012;60:1581-98 Specimen Anatomical Collection Method Collection Time Receive d Time (Source) Location / / Volume Laterality Blood 12/09/2021 6:18 AM 2 6:33 EDT AM EDT Resulting Agency Comment Spec In Lab Iker Cuevas MD CHEMISTRY ORDERABLES Performing Organization Address City/[facility]/[place] [address] TSH (12/09/2021 6:18 AM EDT) athologist Signature TSH 1.60 0.27 - 4.20 [place] [facility] mcIU/mL [facility] LABORATORY Comment: Reference Interval (mcIU/mL): Females: ??First Trimester: 0.23-3.88 ??Second Trimester: 0.22-3.90 ??Third Trimester: 0.44-4.66 Specimen Anatomical Collection Method Collection Time Receive d Time (Source) Location / / Volume Laterality Blood 12/09/2021 6:18 AM 2 6:33 EDT AM EDT Resulting Agency Comment Spec In Lab Iker Cuevas MD CHEMISTRY ORDERABLES Performing Organization Address City/State/ZIP [place] [address] (ABNORMAL) Hemoglobin A1c (12/09/2021 6:18 AM EDT) Analysis Performed At Patho logist Time Signature Hemoglobin A1C 7.4 (H) 4.3 - 5.6 [facility] [...] Mellitus, Diabetes Care 2013; 36: Suppl. 1, S67-75 Est Avg Gluc See note mg/dL [facility] LABORATORY Comment: Estimated Average Glucose [...] with hemoglobinopathies. Additional resources are available on [employer] website. Macario HAMMOND, Ruthann J, Deysi R, et al. ??Tr anslating the A1C assay into estimated average glucose values. ??Diabetes Care 2008:31(8):3365-6048. Specimen Anatomical Collection Method Collection Time Receive d Time (Source) Location / / Volume Laterality Blood Venous Draw / 12/09/2021 6:18 AM 12/10/19 22 Unknown EDT 12:24 PM EDT Resulting Agency Comment Spec In Lab Migdalia BROWN CHEMISTRY ORDERABLES Performing Organization Address [facility] [place] [address] Hepatic Function Panel (12/09/2021 6:18 AM EDT) P athologist Signature Total Protein 7.3 6.1 - 8.0 [facility] g/dL [facility] Albumin 4.2 3.2 - 5.2 [facility] g/dL [facility] AST 25 0 - 39 [facility] unit/L [facility] ALT 15 0 - 55 [facility] unit/L [facility] Alk Phos 75 40 - 130 [facility] unit/L [facility] Total 1.1 0.2 - 1.3 [facility] Bilirubin mg/dL [facility] Bili, Direct 0.2 0.0 - 0.3 [facility] mg/dL [facility] Specimen Anatomical Collection Method Collection Time Receive d Time (Source) Location / / Volume Laterality Blood 12/09/2021 6:18 AM 2 6:33 EDT AM EDT Resulting Agency Comment Spec In Lab Iker Cuevas MD CHEMISTRY ORDERABLES Performing Organization Address City/[facility] [place] [address] Lipid Panel (Reflex Direct LDL) (12/09/2021 6:18 AM EDT) athologist Signature Chol, Total 105 mg/dL [facility] LABORATORY Comment: Lower Risk: <200 mg/dL Average Risk: 200-239 mg/dL Higher Risk: >uj=877 mg/dL Triglycerides 133 mg/dL [facility] LABORATORY Comment: Average Risk/Lower Risk: <150 mg/dL Borderline High Risk: 150-199 mg/dL High Risk: 200-499 mg/dL Very High Risk: >vl=498 mg/dL HDL 42 mg/dL [facility] LABORATORY Comment: Males: ?? Higher Risk: <40 mg/dL Females: ?? Higher Risk: <50 mg/dL LDL Cholesterol 36 mg/dL [facility] LABORATORY Comment: Lowest Risk: <100 mg/dL Lower Risk: 100-129 mg/dL Borderline High Risk: 130-159 mg/dL High Risk: 160-189 mg/dL Very High Risk: >zq=649 mg/dL Chol/HDL Ratio 2.5 ratio [facility] LABORATORY Lipid Interpretation See Note [facility] LABORATORY Comment: Lipid management should be guided by a p atient? s ASCVD risk, goals and preferences. ACC/AHA Guidelines recommend high intens ity statin if clinical ASCVD or LDL greater than or equal to 190 mg/dL. http://[employer].Keenjar/WRE-GOS-Jtodlnkbj Adults aged 40-75 with LDL 70-189 mg/dL should have their 10 year ASCVD risk estimated with the ACC/AHA ASCVD risk es timator http://tools.acc.org/EYXLE-Eevp-Labzfeku r/ Statin should be discussed if risk [...] Organization Address City/State/ZIP Code Phon e Number [place] [phone]OS[address] LAB[address] XR Chest One View [...] who have questions please contact the health care worker that requested your imaging first. ? Narrative [...] ho have questions please contact the health care worker that requested your imaging first. Amber Sanches MD IMG DX ORDERABLES (ABNORMAL) BLOOD GAS 2 ARTERIAL (12/09/2021 5:14 AM EDT) Analysis Performed At Patho logis Time Signature pH Art 7.43 7.35 - [facility] 7.45 [facility] LAB[facility] pCO2 Art 36 35 - 45 [facility] mmHg [facility] pO2 Art 67 (L) 85 - 104 [facility] mmHg [facility] HCO3 Art 23.4 20.0 - [facility] 26.0 [facility] mmol/L HOSPITAL LABORATORY BE Art -0.9 -3.0 - 3.0 [facility] mmol/L [facility] Hgb Blood Gas 13.2 (L) 13.7 - [facility] 16.5 g/dL [facility] O2HB Art 91.3 (L) 94.0 - [facility] 97.0 % [facility] COHB Art 0.4 % [facility] LABORATORY Comment: Nonsmokers: 0.5-1.5% COHB Smokers: Variable, but usually less than 10% Toxic: 20-30% COHB Lethal: Greater than 60% COHB METHB Art 0.4 <=1.5 % [facility] LABORATORY Na Whole Blood 138 135 - 145 mmol/L [facility] K Whole Blood 4.1 3.5 - 5.0 mmol/L [facility] LABOR[facility] Comment: Please note: Patients with WBC >100,000 may have falsely elevated Potassium levels. Contact the Clinical Chemistry L aboratory if there are any questions. ICa Whole Blood 1.09 (L) 1.15 - 1.33 mmol/L [facility] Comment: Note: ??Total bilirubin higher than 20 m g/dL may lead to falsely low ionized calcium. CL Whole Blood 104 98 - 107 mmol/L [facility] Gluc Whole Bld 223 (H) 65 - 199 mg/dL [facility] Comment: Diabetes: >=200 mg/dL plus symp toms. Lactate WB 2.7 (H) 0.5 - 2.2 mmol/L [facility] FIO2 Art 35 % [facility] Flow Art 8.0 LPM [facility] PF Ratio Art 191 [facility] Specimen Anatomical Collection Method Collection Time Receive d Time (Source) Location / / Volume Laterality Blood 12/09/2021 5:14 AM 5:14 EDT AM EDT Iker Cuevas MD CHEMISTRY ORDERABLES Performing Organization Address City/State/Z[place] [address] COVID-19 PCR (12/08/2021 5:00 PM EDT) [facility] Method Time Signature SARS-CoV-2 Not Detected Not Detected [facility] RNA PCR [facility] Comment: This result should [...] using the Simplexa COVID-19 Direct Assay by wildcraftjoi marcum as authorized by the FDA issued Emergency Use Authorization (EUA). This assay is intended for In-vitro Diagnostic (IVD) use with nasopharyngeal swabs collected from individuals meeting the CDC criteria for testing. e assay is performed based on the instructions for use and additional katarzyna benedict provided by the FDA. Testing is performed in the Microbiology Laboratory within the Department of Pathology and Laboratory Medicine at [facility], certified under the Clinical Laboratory [...] fact sheets at the following FDA website: https://www.fda.gov/medical-devices/mxvxyirvzdv-lerfqyz-8594-nuwsg-27-duqfodzzt- xnr-ufqigmvhvgguja-hbwswyu-devices/hkadb-rdidpsywhul-wphz SARS-CoV-2 Source [employer] Swab [facility] Specimen (Source) Anatomical Collection Method Collection Time Re ceived Time Location / / Volume Laterality Nasopharyngeal Swab 12/08/2021 5:00 12/08 PM EDT 6:03 PM EDT Comment: Symptoms->Surveillance Resulting Agency Comment Spec In Lab Iker Cuevas MD MICROBIOLOGY - GENERAL ORDER [place] Performing Organization Address City/State/ZIP [place] [address] Scan Doc: Echo (12/08/2021) Narrative This result has an attachment that is no t available. None MEDIA MGR SCAN EXT ORDR/RSLT Film Library- Storage Only DX Chest (12/07/2021 11:06 PM EDT) Specimen (Source) Anatomical Location Collection Method / Collectio n Time Received Time / Laterality Volume Narrative RAD - 12/07/2021 11:06 PM EDT This exam is auto-finalizing. It's purpo se is for storage only. Lovely Vicente MD IMG FILM LIBRARY ORDERABLES Performing Organization Address City/State/ZIP Code Phon e Number [place], [place] Scan Doc: ECG (12/07/2021) Narrative This result has an attachment that is no t available. 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
--- OUTSIDE RECORDS SUMMARY | 2022-02-20 01:39 | XMS_ITS | Encounter Summary ---
:1945 Author Organization [employer] [place] [address] Care Team Providers Name Role Phone Lovely Vicente MD Primary Care Provider Encounter Details Date Type Department Care Team Description 12/12/2021 Telephone Cardiology [place] [facility] [place] [address] Social History Tobacco Use Types Packs/Day [...] - 12/12/2021 11:36 AM EDT RTC to [employer] regarding pharmacists questions as to whether the [...] Nobles MD [facility] [address] [place], [place] [address] (Wo rk) documented as of this encounter Visit Diagnoses Not on filedocumented in this encounter Care Teams Application Helper Relationship Specialty Start Date End Date Lovely Vicente MD PCP - General 04/16/[address] [place] [address] documented as of this encounter
--- OUTSIDE RECORDS SUMMARY | 2022-02-20 01:40 | XMS_ITS | Encounter Summary ---
:1945 [place] [address] Care Team Providers Name Role Phone Lovely Vicente MD Primary Care Provider Encounter Details Date Type Department Care Team Description 12/07/2021 Ancillary Procedure Radiology Library at Lovely Candelaria MD [facility] [place] [address] [phone] (Wo rk) [phone] Social History Tobacco Use Types Packs/Day Years [...] Nobles MD [facility] [place], [place] [address] (Wo rk) documented as of [...] Organization Address City/State/ZIP Code Phon e Number [place], [place] documented in this encounter Visit Diagnoses Not on filedocumented in this encounter Care Teams Supervisor Electronic Testing Relationship Specialty Start Date End Date Lvoely Vicente MD PCP - General 04/16/[address] [place] [address] documented as of this encounter
--- OUTSIDE RECORDS SUMMARY | 2022-02-20 01:40 | XMS_ITS | Encounter Summary ---
:1945 Author Organization [facility] [place] [address] Care Team Providers Name Role Phone Lovely Vicenet MD Primary Care Provider Reason for Visit Auth/Cert Specialty Diagnoses / Procedures Referred By Contact Refer red To Contact Diagnoses NSTEMI Procedures emerg ipi Referral ID Status Reason Start Date Expiration Date Visits Requ ested Visits Authorized [id number] 1 1 Encounter Details Date Type Department Care Team Description 12/10/2021 Surgery Alternative Financing Specialist Asa Coulter MD CARDIAC CATHETERIZATION [facility] [place] [address] [place] [address] [phone] (Wo rk) Social History Tobacco Use Types [...] Don Fatima Patient Age: 76 y.o. Language: Niuean Race: White Ethnicity: Not nor Admit date: [...] Peter PA-C Kelly LaFlamme PA-C Cardiovascular Medicine [phone] Discharge Diagnoses (Hospital Problems) and Secondary Diagnoses [...] 3.75 guiding catheter and a 3.5 Fr [facility] [place] 20 Mhz using Manual pullback. Imaging was successful. Image quality was good. The ostial LCX showed moderate diffuse atherosclerotic plaque with scattered three quadrant calcification. Measurements were performed after pre-dilation. Post Intervention: The stent was well expanded and apposed. Intravascular Ultrasound was performed in the distal LM using a 7 Fr EBU 3.75 guiding catheter and a 3.5 Fr [facility] [place] 20 Mhz using Manual pullback. Imaging was successful. Image quality was good. The distal LM showed moderate diffuse atherosclerotic plaque. Post Intervention: The stent was well expanded and apposed. Indication for Intervention: Coronary intervention was indicated for primary therapy for an acute myocardial infarction. The priority for the procedure was Urgent. The [facility] indication for the procedure was NSTE-ACS. LVEF [...] may require modification of this regimen. Consult [facility] Interventional Cardiology for questions. The 1 year [...] vascular congestion and cardiomegaly. ?? TTE from [facility] 12/08/21 ? Prior Cardiac Studies: TTE [...] prior thyroidectomy in 2012 who presented to [facility] with 1 week progressing breathlessness with [...] 03/2021 with Liz Poole PA-C. ?? At [facility], respiratory distress with hypoxia 86% on [...] and diet drinks did not cause his TN. This is what his thought was the [...] appointments: During 8am-5pm Wednesday through Wednesday call [phone] to speak with a nurse in the cardiology clinic All other times call [phone] and ask to speak to the auto vinyl top installer party plan demonstrator. Return to work: One week Driving: No driving for 48 hours after catheterization. Follow up Appointments: PCP Lovely Vicente MD [phone] to see patient at the end of December for annual check up. Patient to see Dr. Lorenzana at 1120 am at December 19 for a post hospital check up. Department Clinician Dr. De Oliveira to see you in [facility]. Left a message for office to set a date and time. Please call [phone] Nobles to see the patient for a same day cath in 2-3 weeks from now. Office to call with a date and time. For questions please call [phone] Home oxygen therapy: N/A Arrangements for VNA/home care: none Future Appointments and Orders Future Orders Complete By Expires Basic Metabolic Panel (non-fasting) [LAB15 Custom] 12/19/2021 (Approximate) 12/12/2022 Process Instructions: INCLUDES: Calcium, BUN, Creat, GFR, Glucose, Lytes Scheduling Instructions: Comments: Questions: Referral to Cardiac Rehab [NOA009 Custom] As directed Process Instructions: If no [...] appointments: During 8am-5pm Wednesday through Wednesday call [phone] to speak with a nurse in the cardiology clinic All other times call [phone] and ask to speak to the auto vinyl top installer party plan demonstrator. Return to work: One week Driving: No driving for 48 hours after catheterization. Follow up Appointments: PCP Lovely Vicente MD [phone] to see patient at the end of December for annual check up. Patient to see Dr. Lorenzana at 1120 am at December 19 for a post hospital check up. Department Clinician Dr. De Oliveira to see you in [facility]. Left a message for office to set a date and time. Please call [phone] Nobles to see the patient for a same day cath in 2-3 weeks from now. Office to call with a date and time. For questions please call [phone] Home oxygen therapy: N/A Arrangements for VNA/home [...] 3 01/29/2022 mg Tablet 2 times daily. spironolactone Take 1 tablet by mouth 90 tablet 3 2 02/19/2022 (Aldactone) 25 mg daily. Tablet torsemide 40 mg Tablet Take 40 mg by mouth 30 tablet 3 11/2412/25/2021 daily. apixaban (Eliquis) 5 Take 1 tablet by mouth 60 tablet 3 02/19/2022 mg Tablet 2 times daily. aspirin 81 mg Capsule 81 mg every 24 hours. 0 01/30/2022 documented as of this encounter Progress Notes Janneth Padilla PA - 12/12/2021 7:36 AM EDT Images from the original note were not included. Inpatient Cardiology Progress Note Patient Name: Don Fatima Service: DOMESTIC VIOLENCE COUNSELOR / PA Responsible Attending: Ifeanyi Truong MD [...] was given Lasix 80mg IV x1 in labor relations specialist. Tolerated procedure well. Home today at 11 [...] Affect: Mood normal. Lab Comments: Recent Labs 12/12/2145012/11/2142712/10/21424 WBC 7.9 8.8 9.4 HGB 12.1* 11.9* [...] 75 BILITOT 1.1 BILIDIR 0.2 Recent Labs 12/12/2145012/11/218 12/10/21 1812 12/10/215 CALCIUM 8.9 8.6 8.3* 8.0* MAGNESIUM 1.02 1.04 -- 0.95 Recent Labs 12/09/21 0618 12/08/21 2203 12/08/21 1802 TROPONINT 1.13* 0.92* 0.89* Pertinent Radiographic/Diagnostic Results: R/[facility] 12/10/21 Hemodynamics: Right Heart Pressures Resting: [...] pulmonary vascular congestion and cardiomegaly. TTE from [facility] 12/08/21 Prior Cardiac Studies: TTE 07/28/2019 [...] 5 Mg HAYS/T/W/F/SA and 7.5 mg M/. [place] check DOAC, consider transition to DOAC [...] with MD Janneth Neville PA 12/12/2021 Pager [phone] Associated attestation - Ifeanyi Truong MD - [...] ratio for each meal) Desirae Jett APRN [facility] Endocrinology Diabetes Management Pager [phone] 20 minutes of this 35 minute visit [...] Progress Note Patient Name: Don Fatima Service: DOMESTIC VIOLENCE COUNSELOR / PA Responsible Attending: Iker Cuevas MD [...] + trop. Known CAD with hx of TN and CABG. DM. MARIA VICTORIA.ICM. ??? ASHD [...] was given Lasix 80mg IV x1 in labor relations specialist. Tolerated procedure well. Review of Systems: Review [...] Intake/Output Summary (Last 24 hours) at 12/11/2021 0914 Last data filed at 12/11/2021 0508 Gross [...] Recent Labs 12/11/21427 INR 1.6 Recent Labs 12/11/2142712/10/21 1945 12/10/21181112/10/21424 NA 142 -- 138 140 K 4.0 4.2 Not Perf 3.9 CL 104 -- 100 104 CO2 23 -- 22 23 BUN 49* -- 50* 54* CREATININE 1.43 -- 1.39 1.52* Recent Labs 12/09/2118 AST 25 ALT 15 ALKPHOS 75 BILITOT 1.1 BILIDIR 0.2 Recent Labs 12/11/2142712/10/2112/10/22 0425 12/09/21 1930 12/09/21 0618 CALCIUM 8.6 8.3* [...] pulmonary vascular congestion and cardiomegaly. TTE from [facility] 12/08/21 Prior Cardiac Studies: TTE 07/28/2019 [...] and answered his questions. Iker Cuevas MD [facility] Total time spent on review of records prior to visit, face to face time with patient during visit, documentation, and coordination of care with other clinicians: 25 minutes. . Iker Cuevas MD - 12/10/2021 12:30 PM EDT Images from the original note were not included. Inpatient Cardiology Progress Note Patient Name: Don Fatima Service: DOMESTIC VIOLENCE COUNSELOR / PA Responsible Attending: Iker Cuevas MD Reason for continued hospitalization: NSTEMI- s/p R/LHC- PCW 27, occluded SVGs s/p PCI to ostial LCX ADHF and hypoxia- IV diuresis Active Problems: Active Hospital Problems Diagnosis ??? Admitted with 2 days of sob, hypoxemia, and + trop. Known CAD with hx of TN and CABG. DM. MARIA VICTORIA.ICM. ??? ASHD [...] was given Lasix 80mg IV x1 in labor relations specialist. Tolerated procedure well. Review of Systems: Review [...] 35.8* PLATELET 183 193 178 Recent Labs 12/10/21424 INR 1.7 Recent Labs 12/10/2142412/09/21192912/09/21617 NA 140 138 139 K 3.9 4.2 4.2 CL 104 102 101 CO2 23 22 21* BUN 54* 56* 49* CREATININE 1.52* 1.75* 1.33 Recent Labs 12/09/2118 AST 25 ALT 15 ALKPHOS 75 BILITOT 1.1 BILIDIR 0.2 Recent Labs 12/10/2142412/09/21192912/09/2118 12/08/21 1802 CALCIUM 8.0* 8.1* 8.8 8.6 MAGNESIUM 0.95 -- 0.81 0.86 Recent Labs 12/09/2161712/08/21 2203 12/08/21 1802 TROPONINT 1.13* 0.92* 0.89* Pertinent Radiographic/Diagnostic Results: R/[facility] 12/10/21 Hemodynamics: Right Heart Pressures Resting: [...] pulmonary vascular congestion and cardiomegaly. TTE from [facility] 12/08/21 Prior Cardiac Studies: TTE 07/28/2019 [...] Discussed with MD Migdalia Peter PA-C Pager #[phone] 12/10/2021 Cardiology Attending Note I have seen [...] updated and given pictures. Iker Cuevas MD [facility] Total time spent on review of records prior to visit, face to face time with patient during visit, documentation, and coordination of care with other clinicians: 35 minutes. Iker Cuevas MD - 12/09/2021 7:28 AM EDT Images from the original note were not included. Inpatient Cardiology Progress Note Patient Name: Don Fatima Service: DOMESTIC VIOLENCE COUNSELOR / PA Responsible Attending: Iker Cuevas MD Reason for continued hospitalization: NSTEMI- awaiting R/LHC ADHF and hypoxia- IV diuresis, R/LHC Active Problems: Active Hospital Problems Diagnosis ??? Admitted with 2 days of sob, hypoxemia, and + trop. Known CAD with hx of TN and CABG. DM. MARIA VICTORIA.ICM. ??? ASHD [...] pulmonary vascular congestion and cardiomegaly. TTE from [facility] 12/08/21 Prior Cardiac Studies: TTE 07/28/2019 [...] Discussed with MD Migdalia Peter PA-C Pager #[phone] 12/09/2021 Cardiology Attending Note I have seen and examined the patient. I agree with the findings above. Developed CHF early this am despite getting more iv lasix last evening. Feeling better now. INR > 2. Lungs still wet at base. Echo at [facility] showed EF 35% with mild mod MR slightly lower than last value here. -vit K 2.5 orally to facilitate correction of INR- this will take 12-24 hours to take effect -furosemide 80 mg iv now -postpone right and left heart cath until tomorrow given INR and ADHF -increase statin to achieve LDL < 70 -CPAP tonight Iker Cuevas MD [facility] Total time spent on review [...] + trop. Known CAD with hx of TN and CABG. DM. MARIA VICTORIA.ICM. ??? ASHD [...] prior thyroidectomy in 2012 who presented to [facility] with 1 week progressing breathlessness with [...] visit 03/2021 with Liz Poole PA-C. At [facility], respiratory distress with hypoxia 86% on [...] [facility] MAIN OR ??? PRO AMPUTATION FOOT, TRANSMETATARSAL Right 08/09/2017 AMPUTATION, TRANSMETATARSAL (WRVU 12.71) performed by [facility]athan Smith [facility] [...] [facility] END[facility] ??? PRO DRESSING CHANGE UNDER ANESTHESIA Right 08/11/2017 (MSURG) DRESSING CHANGE (FOR OTHER THAN IVAN) UNDER ANES. (WRVU 0.86) performed by Lamar Smith MD at [facility] MA[facility] ??? PRO ENDOSCOPY W/VIDEO-ASST VEIN HARVEST, CABG Right 07/07/2017 ENDOSCOPIC HARVEST VEIN(S) FOR CABG (WRVU 0.31) performed by Yuan Retana MD at [facility] MAIN OR ??? PRO THYROIDECTOMY 03/28/2013 THYROIDECTOMY, TOTAL OR COMPLETE performed by Manny Mcknight MD at [facility] MAIN OR Significant Family History: Family History [...] (H) 65 - 199 mg/dL Labs at [facility] 12/08/2021-troponin I 8004 (UN L <60), [...] Monitor for ADRs. Trend troponins. Admission EKG. [facility] 12/09; consented. TTE. Telemetry monitoring, daily [...] code #Diet-carb control; n.p.o. after midnight for [facility] #DVT prophy- heparin infusion #GI prophy- PPI Discussed with MD Morgan Peter PA-C APP2 pager [phone] 12/08/2021 Cardiology Attending Note I have seen [...] is type 1 due to graft or torres martinez coronary stenosis vs acute injury from CHF. 3. PAF: currrently in NSR. Have replaced warfarin with heparin 4. PAD: stable 5. DM: stable 6. CKD: will monitor and minimize contrast. Pt very appreciative of Dr. Yuan Retana's care in 2018. Will let him know patient is here. Iker Cuevas MD [facility] documented in this encounter Miscellaneous Notes [...] Type: *No Product type* / Secondary Insurance: [employer] [place] Prescription Coverage: Yes This plan was [...] cath without complications. Migdalia Parker PA-C Pager #[phone] 12/10/2021 Initial Assessments - Nick Georges RN [...] COVID test: Lab Results Component Value Date [id number] Not Detected 12/08/2021 Past medical History: Past [...] spouse would be surrogate decision maker per [place] surrogate decision making law. (Only good for 180 days) Any patient receiving care at [facility] must abide by [place] law. The hierarchy for surrogate decision making [...] The agent with financial power of traffic control officer or a conservator appointed in accordance with [...] - standard, cane - straight Home Address: [address] [place] [address] [place] [address] Social & Family Supports: All names listed below confirmed with patient as current and correct Extended Emergency Contact Information Primary Emergency Contact: Kisha Fatima Address: [address] [place] [address] [place] [address] [facility] Mobile Relation: Spouse Secondary Emergency Contact: Elba Swenson Address: [address] Mobile Relation: Child Current Care Provided by: [...] Type: *No Product type* / Secondary Insurance: [facility] Prescription Coverage: Yes Preferred Pharmacy: [facility] [id number] [id number] - [place], [place] - [address] [address] Status: Patient is a : unable to assess Primary Care Provider: Lovely Vicente MD [phone] Patient/Caregiver Goals of Treatment: Get out of here Potential Needs for Transition of Care: none Agency Referrals: none patient has used [employer] in the past Transportation: no concerns Transportation Anticipated: family or friend will provide Concerns to be Addressed: patient refuses services, discharge planning Assessment: Patient is admitted to [facility] Service pager [phone] for 76 y.o.??male??with h/o??CAD s/p 3vCABG (THOMPSON-LAD, [...] loaded with??aspirin and??clopidogrel, started on heparin infusion,??and??continued on??beta-hcadwick therapy. Tr ansferred to for further management [...] status on current unit. Nick Georges RN senior applications architect, Office of Care Management Pager: [phone] Brief Op Note - Vitaliy Nobles MD - 12/10/2021 8:31 AM EDT Images from the original note were not included. [facility] [place] [address] CORONARY ANGIOGRAM AND PERCUTANEOUS CORONARY INTERVENTION REPORT Patient: Don Fatima : 1945 MR number: [id number] Date of Service: 12/10/2021 Steel Fabricator: Vitaliy Nobles MD Fellow: Rancho Woods MD [...] management and to provide a review of manager terminal diabetes care. Diabetes History: Don Fatima has had diabetes for 10 years. He has been on insulin for the last several years andis managed by his PCP. Lives in [place], [place] with his . States that he [...] Urinary retention 04/05/2013 Current Hospital Medications: ??? [MAR Hold] polyethylene glycoL (MIRALAX) oral powder 17 [...] [SEP Hold] heparin (porcine) infusion 1,600 Units/hr (12/09/21 2317) PRN: [SEP Hold] ipratropium-albuteroL, [SEP Hold] senna-docusate, [SEP Hold] bisacodyL, [MAR Hold] sodiumchloride 0.9 % (flush), [MAR Hold] [...] 5 gm carb ratio for each meal) halfway diabetes care: Medications - Outpatient treatment regimen recommendations pending based on the hospital course. Monitoring - continue BG tid ac & hs Diet - low fat/low carb diet Exercise - weight-bearing exercise 30 min/day, as tolerated Thank you for allowing us to provide care for your patient Desirae Jett APRN Endocrinology Pager [phone] 70 minutes of this 80 minute visit [...] Safety Program Consult Note Called to see oDn Fatima who is a 76 y.o.male by [...] + trop. Known CAD with hx of TN and CABG. DM. MARIA VICTORIA.ICM. ??? ASHD [...] to remain on Med/Surg floor, please page [phone] for any further questions or concerns. LANDON [...] for further details. STEPHANIE Rebolledo 12/08/2021 Pager [phone] documented in this encounter Plan of Treatment Upcoming Encounters Date Type Specialty Care Team Description 03/26/2022 Office Visit Cardiology Vitaliy Nobles MD [facility] MEDICAL [facility] DR CARDIOLOGY [place], [place] [address] (Wo rk) Scheduled Referrals Name [...] POCT Glucose (12/12/2021 7:42 AM EDT) athologist [facility] POC Glucose 215 (H) 65 - 199 [facility] mg/dL [facility] Comment: Supplemental ranges: <140 mg/dL before meals <180 mg/dL all other times of the day Specimen Anatomical Collection Method Collection Time Receive d Time (Source) Location / / Volume Laterality Blood 12/12/2021 7:42 AM 7:42 EDT AM EDT Ifeanyi Truong MD POINT OF CARE TEST ORDERABLE S Performing Organization Address City/State/[place] [address] (ABNORMAL) Differential, Automated (12/12/2021 4:51 AM EDT) athologist Signature Neutrophils % 75.4 % [facility]OR[facility]ORY Neutr Abs (ANC) 5.95 1.70 - [facility] 6.10 [facility] x10(3)/[facility] LABORATORY Lymphocytes % 12.2 % [facility] LABORATORY Lymphocytes Abs 1.0 0.9 - 3.2 [facility] x10(3)/[facility] LABORATORY Monocytes % 9.5 % [facility] LABORATORY Monocyte Abs 0.8 0.3 - 0.9 [facility] x10(3)/[facility] LABORATORY Eosinophils % 1.8 % [facility] LABOR[facility]ORY Eosinophils Abs 0.1 0.0 - 0.4 [facility] x10(3)/[facility] LABORATORY Basophils % 0.5 % [facility]ORY Basophils Abs 0.0 0.0 - 0.1 [facility] x10(3)/[facility] LABORATORY Immature Gran % 0.60 % [facility] Comment: Immature granulocytes(IG's)percentage an d absolute count will include metamyelocytes, myelocytes, and promyelo cytes. Blood smears from CBCs yielding IG's will be scanned manually for concor dance. If this scan disagrees with the automated IG or if promyelocytes are not ed, a manual differential will be performed. Melisa Gran Abs 0.05 (H) 0.00 - 0.04 x10(3)/[facility] LABORATORY Specimen Anatomical Collection Method Collection Time Receive d Time (Source) Location / / Volume Laterality Blood 12/12/2021 4:51 AM 2 5:06 EDT AM EDT Resulting Agency Comment Spec In Lab Bijan Sun MD HEMATOLOGY ORDERABLES Performing Organization Address City/State/[place] [address] (ABNORMAL) Hemogram (12/12/2021 4:51 AM EDT) Analysis Performed At Patho logist Time Signature WBC 7.9 4.0 - 9.5 [facility] x10(3)/[facility] LABORATORY RBC 4.19 (L) 4.58 - [facility] 5.54 [facility] x10(6)/[facility] LABORATORY Hemoglobin 12.1 (L) 13.7 - [facility] 16.5 g/dL [facility] Hematocrit 36.7 (L) 40.5 - [facility] 48.5 % [facility] MCV 87.6 82.9 - [facility] RYAN 93.1 [facility] LABORATORY MCH 28.9 27.5 - [place] OLIVASCK 32.1 pg [facility] MCHC 33.0 32.0 - [place] 35.7 g/dL [facility] Platelets 231 145 - 357 [facility] x10(3)/[facility] LABORATORY RDWSD 47.2 (H) 36.0 - [place] RYAN 45.0 [facility] LABORATORY RDWCV 14.6 (H) 11.4 - [facility] RYAN 13.8 % [facility] MPV 9.5 7.6 - 12.9 [facility] LABORATORY nRBC % Auto 0.0 % [facility] LABORATORY nRBC Abs Auto 0.000 0.000 - [place] RYAN 0.000 [facility] x10(3)/[facility] LABORATORY Specimen Anatomical Collection Method Collection Time Receive d Time (Source) Location / / Volume Laterality Blood 12/12/2021 4:51 AM 2 5:06 EDT AM EDT Resulting Agency Comment Spec In Lab Bijan Sun MD HEMATOLOGY ORDERABLES Performing Organization Address City/State/[place] [address] (ABNORMAL) Prothrombin Time (12/12/2021 4:51 AM EDT) P athologist Signature PT 14.9 (H) 9.4 - 12.5 [facility] LABORATORY INR 1.3 [facility] [...] City/State/ZIP Code Phon e Number [place] [id number] (ABNORMAL) BMP w/fasting Glucose (12/12/2021 4:51 AM EDT) P athologist Signature Glucose 152 (H) 65 - 99 [facility] Fasting mg/dL [facility] Comment: ?Fasting* Glucose Interpretive C riteria [...] Creatinine 1.72 (H) 0.80 - 1.50 mg/dL [facility] [...] Organization Address City/State/[place] [address] Magnesium (12/12/2021 4:51 AM EDT) P athologist Signature Magnesium 1.02 0.69 - 1.07 [facility] mmol/L [facility] Specimen Anatomical Collection Method Collection Time Receive d Time (Source) Location / / Volume Laterality Blood 12/12/2021 4:51 AM 2 5:06 EDT AM EDT Resulting Agency Comment Spec In Lab Iker Cuevas MD CHEMISTRY ORDERABLES Performing Organization Address City/State/ZIP Code Phon e Number [address] POCT Glucose (12/12/2021 3:43 AM EDT) P athologist Signature POC Glucose 138 65 - 199 [facility] mg/dL [facility] Comment: Supplemental ranges: <140 mg/dL before meals <180 mg/dL all other times of the day Specimen Anatomical Collection Method Collection Time Receive d Time (Source) Location / / Volume Laterality Blood 12/12/2021 3:43 AM 2 3:43 EDT AM EDT Iker Cuevas MD POINT OF CARE TEST ORDERABLE S Performing Organization Address City/State/Z[place] [address] POCT Glucose (12/11/2021 11:44 PM EDT) athologist Signature POC Glucose 124 65 - 199 [place] R[facility] mg/dL [facility] Comment: Supplemental ranges: <140 mg/dL before meals <180 mg/dL all other times of the day Specimen Anatomical Collection Method Collection Time Receive d Time (Source) Location / / Volume Laterality Blood 12/11/2021 11:44 12/11/2021 PM EDT 11:44 PM EDT Iker Cuevas MD POINT OF CARE TEST ORDERABLE S Performing Organization Address City/State/ZIP [place] [address] (ABNORMAL) POCT Glucose (12/11/2021 8:12 PM EDT) athologist Signature POC Glucose 200 (H) 65 - 199 [place] [place] mg/dL [facility] Comment: Supplemental ranges: <140 mg/dL before meals <180 mg/dL all other times of the day Specimen Anatomical Collection Method Collection Time Receive d Time (Source) Location / / Volume Laterality Blood 12/11/2021 8:12 PM 2 8:12 EDT PM EDT Iker Cuevas MD POINT OF CARE TEST ORDERABLE S Performing Organization Address City/State/ZIP [place] [address] (ABNORMAL) POCT Glucose (12/11/2021 6:50 PM EDT) athologist Signature POC Glucose 245 (H) 65 - 199 [place]YAN mg/dL [facility] Comment: Supplemental ranges: <140 mg/dL before meals <180 mg/dL all other times of the day Specimen Anatomical Collection Method Collection Time Receive d Time (Source) Location / / Volume Laterality Blood 12/11/2021 6:50 PM 2 6:50 EDT PM EDT Iker Cuevas MD POINT OF CARE TEST ORDERABLE S Performing Organization Address City/[facility]/[place]IP [place] [address] (ABNORMAL) POCT Glucose (12/11/2021 4:00 PM EDT) P athologist Signature POC Glucose 383 (H) 65 - 199 [facility] Comment: Supplemental ranges: <140 mg/dL before meals <180 mg/dL all other times of the day Specimen Anatomical Collection Method Collection Time Receive d Time (Source) Location / / Volume Laterality Blood 12/11/2021 4:00 PM 2 4:00 EDT PM EDT Iker Cuevas MD POINT OF CARE TEST ORDERABLE S Performing Organization Address City/[facility]/ZIP [place] [address] (ABNORMAL) POCT Glucose (12/11/2021 12:01 PM EDT) P athologist Signature POC Glucose 342 (H) 65 - 199 [facility]dL [facility] Comment: Supplemental ranges: <140 mg/dL before meals <180 mg/dL all other times of the day Specimen Anatomical Collection Method Collection Time Receive d Time (Source) Location / / Volume Laterality Blood 12/11/2021 12:01 12/11/2021 PM EDT 12:01 PM EDT Iker Cuevas MD POINT OF CARE TEST ORDERABLE S Performing Organization Address City/[facility]/ZIP Code Phon e Number [address] COVID-19 PCR (12/11/2021 10:13 AM EDT) [facility] gist Method Time Signature SARS-CoV-2 Not Detected Not Detected [facility] Comment: This result should be [...] diagnosis of COVID-19 is performed using the [employer] Mobile RONNA S-CoV-2 Assay as authorized by the FDA Emergency Use Authorization (EUA). This EUA assay is intended for In-vitro Diagnostic (IVD) use with respiratory sp ecimens such as nasopharyngeal swabs collected from individuals during the ac terrence phase of infection. This assay is performed based on the instructions for use provided by [employer] and additional guidance provided by CDC and FDA. Testing is performed in the Clinical Genomics and Advanced Technolog y Laboratory within the Department of Pathology and Laboratory Medicine at [facility], certified under the Clinical [...] required or requested by public health a [facility], positive specimens may be sent for [...] clinical management guidance information are available at [facility] Coronavirus Disease 2019 (COVID-19) webpage under Information fo r Healthcare Professionals (https://www.cdc.gov/coronavirus/2019-nc ov/hcp/index.html) Additional information about this and ot her EUA tests can be found in provider and patient fact sheets at the following FDA website: https://www.fda.gov/medical-devices/laialpbvius-rujvffw-1942-qwwrj-36-orvbhttoo- rgj-kzowedhivlexqm-yvwrduo-devices/mmgjy-gotrmmnlltp-gnip SARS-Cov-2 RNA Source [employer] Swab [facility] LABORATORY Specimen (Source) Anatomical Collection Method Collection Time Re ceived Time Location / / Volume Laterality Nasopharyngeal Swab 12/11/2021 10:13 0503/2022 AM EDT 11:16 AM EDT Comment: Symptoms->Surveillance Resulting Agency Comment Spec In Lab Iker Cuevas MD MICROBIOLOGY - GENERAL ORDER ROBSON Performing Organization Address City/[facility]/ZIP [place] [address] POCT Glucose (12/11/2021 7:34 AM EDT) athologist Signature POC Glucose 198 65 - 199 [facility] mg/dL [facility] Comment: Supplemental ranges: <140 mg/dL before meals <180 mg/dL all other times of the day Specimen Anatomical Collection Method Collection Time Receive d Time (Source) Location / / Volume Laterality Blood 12/11/2021 7:34 AM 7:34 EDT AM EDT Iker Cuevas MD POINT OF CARE TEST ORDERABLE S Performing Organization Address City/[facility]/[place]IP [place] [address] (ABNORMAL) POCT Glucose (12/11/2021 5:07 AM EDT) athologist Signature POC Glucose 208 (H) 65 - 199 [facility] mg/dL [facility] Comment: Supplemental ranges: <140 mg/dL before meals <180 mg/dL all other times of the day Specimen Anatomical Collection Method Collection Time Receive d Time (Source) Location / / Volume Laterality Blood 12/11/2021 5:07 AM 2 5:07 EDT AM EDT Iker Cuevas MD POINT OF CARE TEST ORDERABLE S Performing Organization Address City/State/[place] [address] (ABNORMAL) Differential, Automated (12/11/2021 4:28 AM EDT) [facility] Method Time Signature Neutrophils % 79.6 % [facility] LABORATORY Neutr Abs (ANC) 7.01 (H) 1.70 - [facility] 6.10 [facility] x10(3)/[facility] L LABORATORY Lymphocytes % 9.1 % [facility] LABORATORY Lymphocytes Abs 0.8 (L) 0.9 - 3.2 [facility] x10(3)/[facility] LABORATORY Monocytes % 9.2 % [facility] LABORATORY Monocyte Abs 0.8 0.3 - 0.9 [facility] x10(3)/[facility] LABORATORY Eosinophils % 1.3 % [facility] LABORATORY Eosinophils Abs 0.1 0.0 - 0.4 [facility] x10(3)/[facility] LABORATORY Basophils % 0.5 % [facility] LABORATORY Basophils Abs 0.0 0.0 - 0.1 [facility] x10(3)/[facility] LABORATORY Immature Gran % 0.30 % [facility] Comment: Immature granulocytes(IG's)percentage an d absolute count will include metamyelocytes, myelocytes, and promyelo cytes. Blood smears from CBCs yielding IG's will be scanned manually for concor dance. If this scan disagrees with the automated IG or if promyelocytes are not ed, a manual differential will be performed. Melisa Gran Abs 0.03 0.00 - 0.04 x10(3)/[facility] MAR Y [facility] LABORATORY Specimen Anatomical Collection Method Collection Time Receive d Time (Source) Location / / Volume Laterality Blood 12/11/2021 4:28 AM 2 4:37 EDT AM EDT Resulting Agency Comment Spec In Lab Bijan Sun MD HEMATOLOGY ORDERABLES Performing Organization Address City/State/[place] [address] (ABNORMAL) Hemogram (12/11/2021 4:28 AM EDT) Analysis Performed At Patho logist Time Signature WBC 8.8 4.0 - 9.5 [facility] x10(3)/[facility] LABORATORY RBC 4.15 (L) 4.58 - [place]A RYAN 5.54 [facility] x10(6)/[facility] LABORATORY Hemoglobin 11.9 (L) 13.7 - [facility] 16.5 g/dL [facility] Hematocrit 36.9 (L) 40.5 - [facility] 48.5 % [facility] MCV 88.9 82.9 - [facility] 93.1 [facility] LABORATORY MCH 28.7 27.5 - [facility] RYAN 32.1 pg [facility] MCHC 32.2 32.0 - [facility] RYAN 35.7 g/dL [facility] Platelets 211 145 - 357 [facility] x10(3)/[facility] LABORATORY RDWSD 48.3 (H) 36.0 - [facility] 45.0 [facility] LABORATORY RDWCV 14.8 (H) 11.4 - [facility] 13.8 % [facility] MPV 9.6 7.6 - 12.9 [facility] LABORATORY nRBC % Auto 0.0 % [facility] LABORATORY nRBC Abs Auto 0.000 0.000 - [facility] RYAN 0.000 [facility] x10(3)/[facility] LABORATORY Specimen Anatomical Collection Method Collection Time Receive d Time (Source) Location / / Volume Laterality Blood 12/11/2021 4:28 AM 4:37 EDT AM EDT Resulting Agency Comment Spec In Lab Bijan Sun MD HEMATOLOGY ORDERABLES Performing Organization Address City/State/Z[place] [address] (ABNORMAL) Prothrombin Time (12/11/2021 4:28 AM EDT) P athologist Signature PT 17.7 (H) 9.4 - 12.5 [facility] sec [facility] INR 1.6 [facility] Comment: An [...] Organization Address City/State/ZIP [place] [address] (ABNORMAL) BMP w/fasting Glucose (12/11/2021 4:28 AM EDT) athologist Signature Glucose 207 (H) 65 - 99 [facility] Fasting mg/dL [facility] Comment: ?Fasting* Glucose Interpretive C riteria [...] BUN 49 (H) 10 - 20 mg/dL [facility] LABORATORY Creatinine 1.43 0.80 - 1.50 mg/dL [facility] LABORATORY Sodium 142 135 - 145 mmol/L [facility] LAB[facility] Potassium 4.0 3.5 - 5.0 mmol/L [facility] Comment: Please note: ??Patients with WBC >100,00 0 may have falsely elevated Potassium levels. ??For accurate Potassium quantif ication in these patients send serum separator tube (gold top) for subsequent determinations. ??Contact the Clinical Chemistry Laboratory if there are any qu estions. Chloride 104 98 - 107 mmol/L [facility] LABORATORY CO2 23 22 - 31 mmol/L [facility] Anion Gap 15 5 - 15 mmol/L [facility] LABORATORY Calcium 8.6 8.5 - 10.5 mg/dL [facility] Estimated GFR 48 (L) >=60 mL/min/1.73 m?? [facility] [...] Address City/State/Z[place] [address] Magnesium (12/11/2021 4:28 AM EDT) P athologist Signature Magnesium 1.04 0.69 - 1.07 [facility] mmol/L [facility] Specimen Anatomical Collection Method Collection Time Receive d Time (Source) Location / / Volume Laterality Blood 12/11/2021 4:28 AM 2 4:37 EDT AM EDT Resulting Agency Comment Spec In Lab Iker Cuevas MD CHEMISTRY ORDERABLES Performing Organization Address City/State/ZIP Code Phon e Number [address] POCT Glucose (12/11/2021 3:58 AM EDT) athologist Signature POC Glucose 189 65 - 199 [facility]YAN mg/dL [facility] Comment: Supplemental ranges: <140 mg/dL before meals <180 mg/dL all other times of the day Specimen Anatomical Collection Method Collection Time Receive d Time (Source) Location / / Volume Laterality Blood 12/11/2021 3:58 AM 2 3:58 EDT AM EDT Iker Cuevas MD POINT OF CARE TEST ORDERABLE S Performing Organization Address City/State/[place] [address] (ABNORMAL) POCT Glucose (12/10/2021 11:45 PM EDT) P athologist Signature POC Glucose 205 (H) 65 - 199 [facility]YAN mg/dL [facility] Comment: Supplemental ranges: <140 mg/dL before meals <180 mg/dL all other times of the day Specimen Anatomical Collection Method Collection Time Receive d Time (Source) Location / / Volume Laterality Blood 12/10/2021 11:45 12/10/2021 PM EDT 11:45 PM EDT Iker Cuevas MD POINT OF CARE TEST ORDERABLE S Performing Organization Address City/State/[place] [address] (ABNORMAL) POCT Glucose (12/10/2021 7:54 PM EDT) P athologist Signature POC Glucose 225 (H) 65 - 199 [facility]YAN mg/dL [facility] Comment: Supplemental ranges: <140 mg/dL before meals <180 mg/dL all other times of the day Specimen Anatomical Collection Method Collection Time Receive d Time (Source) Location / / Volume Laterality Blood 12/10/2021 7:54 PM 2 7:54 EDT PM EDT Iker Cuevas MD POINT OF CARE TEST ORDERABLE S Performing Organization Address City/[facility]/ZIP [place] [address] Potassium (12/10/2021 7:46 PM EDT) athologist Signature Potassium 4.2 3.5 - 5.0 [facility] mmol/L [facility] Comment: Please note: ??Patients with WBC [...] Cuevas MD CHEMISTRY ORDERABLES Performing Organization Address City/[facility]/Z[place] [address] (ABNORMAL) Basic Metabolic Panel (non-fasting) (12/10/2021 6:12 PM EDT) athologist Signature Glucose Lvl 246 (H) 65 - 199 [facility] mg/dL [facility] Comment: Diabetes: >=200 mg/dL plus symp toms BUN 50 (H) 10 - 20 mg/dL [facility] LABORATORY Creatinine 1.39 0.80 - 1.50 mg/dL [facility] Sodium 138 135 - 145 mmol/L [facility] Potassium Not Perf 3.5 - [...] estions. Chloride 100 98 - 107 mmol/L [facility] CO2 22 22 - 31 mmol/L [facility] LAB[facility] Anion Gap 16 (H) 5 - 15 mmol/L [facility] LABORATORY Calcium 8.3 (L) 8.5 [...] Address City/State/[place] [address] POCT Glucose (12/10/2021 4:59 PM EDT) P athologist Signature POC Glucose 158 65 - 199 [facility] mg/dL [facility] Comment: Supplemental ranges: <140 mg/dL before meals <180 mg/dL all other times of the day Specimen Anatomical Collection Method Collection Time Receive d Time (Source) Location / / Volume Laterality Blood 12/10/2021 4:59 PM 4:59 EDT PM EDT Iker Cuevas MD POINT OF CARE TEST ORDERABLE S Performing Organization Address City/[facility]/ZIP Code Phon e Number [address] (ABNORMAL) POCT Glucose (12/10/2021 12:43 PM EDT) P athologist Signature POC Glucose 241 (H) 65 - 199 [facility] mg/dL [facility] Comment: Supplemental ranges: <140 mg/dL before meals <180 mg/dL all other times of the day Specimen Anatomical Collection Method Collection Time Receive d Time (Source) Location / / Volume Laterality Blood 12/10/2021 12:43 12/10/2021 PM EDT 12:43 PM EDT Iker Cuevas MD POINT OF CARE TEST ORDERABLE S Performing Organization Address [facility] [place] [address] EKG 12 Lead (12/10/2021 11:17 AM EDT) Component Value Ref Range Test Analysis Performed Pathologis t Method Time At Signature Ventricular rate 62 BPM MUSE SYSTEM Atrial Rate 62 BPM MUSE SYSTEM P-R Interval 142 ms MUSE SYSTEM QRS Duration 100 ms MUSE SYSTEM Q-T Interval 434 ms MUSE SYSTEM QTC Calculated 440 ms MUSE SYSTEM (Bezet) Calculated P [place] 34 degrees MUSE SYSTEM Calculated R [place] -39 degrees MUSE SYSTEM Calculated T [place] 92 degrees MUSE SYSTEM INTERPRETATION Normal sinus rhythm MUSE SYSTEM Left axis deviation Minimal voltage criteria for LVH, may be normal variant ( [employer] product ) Cannot rule out Inferior infarct [...] SYSTEM - 12/10/2021 12:04 PM E DT ?[facility] ? Cardiac Cathete rization/Intervention Report ? Patient Name: Don Fatima. ? Procedure Date: 12/10/2021 ? A #: [id number] ? Primary Physician: Vitaliy Nobles ? Case #: [id number] ? File Name: [id number] ? Catheterization Order Number: [id number] ? [facility] ? Final Report [place], [place] ? Patient Name: ? Don E. Stewa rt ? ID#: ?[id number] ? : ?1945 ? Procedure Date: ? December 10, 2021 ? Case #: ? [id number] ? Room: ? 1 ? Case Physician: ? Vitaliy Nobles M. D. ?Start: ?08:41 ?Fellow: ? [place] [...] was ?designated as ASA Class III. e [facility] clinical frailty scale is 5: Mildly [...] was Urgent. The indication for ?the labor relations specialist visit is ACS great er than 24 [...] ?3.75 guiding catheter and a 3.5 Fr [facility] [place] 20 Mhz using Manual ?pullback. ??Imaging was [...] ?3.75 guiding catheter and a 3.5 Fr [facility] [place] 20 Mhz using Manual ?pullback. ??Imaging was [...] require ?modification of this regimen. C onsult [facility] Interventional Cardiology for ?questions. ?The 1 year bleeding risk as nusrat culated by the PRECISE DAPT score is High ?risk. ?High Bleeding Risk - Anticoagul ation and DAPT: ?- ??Assess ischemic and bleedin g risks using validated risk predictors ?(e.g. CHADS2-VASC, HAS-BLED, AL ECISE DAPT, DAPT Score) ?- ??Keep anticoagulant [...] reduction of ?LVEF with RWMA and mod MRMadiha soares as found to have severely elevated [...] Procedure Note Vitaliy Nobles MD - 01/14/2022 [facility] Cardiac Catheterization/Intervention Re port Patient Name: Don Fatima Procedure Date: 12/10/2021 A #: [id number] Primary Physician: Vitaliy Nobles Case #: [id number] File Name: [id number] Catheterization Order Number: [id number] [facility] Final Report [place], [place] Patient Name: Don Fatima ID#: [...] e was Urgent. The indication for the labor relations specialist visit is ACS greater than 24 hrs [...] and a 3.5 Fr [facility] [place] 20 Mhz using Manual pullback. Imaging was [...] and a 3.5 Fr [facility] [place] 20 Mhz using Manual pullback. Imaging was [...] was 35%. Syntax Score was Intermediate. Rig Heart catheterization was initiated for Acute on [...] POC Glucose 262 (H) 65 - 199 [facility] mg/dL [facility] Comment: Supplemental ranges: <140 mg/dL before meals <180 mg/dL all other times of the day Specimen Anatomical Collection Method Collection Time Receive d Time (Source) Location / / Volume Laterality Blood 12/10/2021 10:30 12/10/2021 AM EDT 10:30 AM EDT Iker Cuevas MD POINT OF CARE TEST ORDERABLE S Performing Organization Address City/State/Z[place] [address] (ABNORMAL) POCT Glucose (12/10/2021 9:48 AM EDT) athologist Signature POC Glucose 279 (H) 65 - 199 [facility] Comment: Supplemental ranges: <140 mg/dL before meals <180 mg/dL all other times of the day Specimen Anatomical Collection Method Collection Time Receive d Time (Source) Location / / Volume Laterality Blood 12/10/2021 9:48 AM 2 9:48 EDT AM EDT Iker Cuevas MD POINT OF CARE TEST ORDERABLE S Performing Organization Address City/State/Z[place] [address] (ABNORMAL) POCT Glucose (12/10/2021 9:07 AM EDT) P athologist Signature POC Glucose 268 (H) 65 - 199 [facility] mg/dL [facility] Comment: Supplemental ranges: <140 mg/dL before meals <180 mg/dL all other times of the day Specimen Anatomical Collection Method Collection Time Receive d Time (Source) Location / / Volume Laterality Blood 12/10/2021 9:07 AM 2 9:07 EDT AM EDT Iker Cuevas MD POINT OF CARE TEST ORDERABLE S Performing Organization Address City/[facility]/ZIP [place] [address] (ABNORMAL) Point of Care Blood Gas Historical (12/10/2021 9:04 AM EDT) Patholo gist Method Time Signature POC pH 7.40 7.35 - [facility] 7.45 [facility] POC PCO2 40 35 - 45 [facility] LABORATORY POC PO2 63 (L) 85 - 104 [facility] LABORATORY POC Base Excess 0.0 -3.0 - 3.0 [facility] K mmol/L [facility] POC HCO3 24.8 20.0 - [facility] 26.0 [facility] mmol/ HOSPITAL LABORATORY POC Sodium 143 135 - 145 [facility] mmol/L [facility] POC Potassium 3.7 3.5 - 5.0 [facility] mmol/L [facility] POC Ionized Ca 1.07 (L) 1.15 - [facility] 1.33 [facility] mmol/[facility] LABORATORY POC Hematocrit 30.0 (L) 40.0 - [facility] 51.0 % [facility] POC Calc Hgb 10.2 (L) 13.7 - [facility] DAVIS 17.5 g/dL [facility] Comment: The calculation of hemoglobin f rom hematocrit assumes a normal MCHC. POC Bgas Loc CC LAB [facility] LABORATORY Specimen Anatomical Collection Method Collection Time Receive d Time (Source) Location / / Volume Laterality Blood 12/10/2021 9:04 AM 2 EDT 12:00 PM EDT Ifeanyi Truong MD CHEMISTRY ORDERABLES Performing Organization Address City/[facility]/ZIP [place] [address] (ABNORMAL) POCT Glucose (12/10/2021 7:19 AM EDT) athologist Signature POC Glucose 274 (H) 65 - 199 [facility] mg/dL [facility] Comment: Supplemental ranges: <140 mg/dL before meals <180 mg/dL all other times of the day Specimen Anatomical Collection Method Collection Time Receive d Time (Source) Location / / Volume Laterality Blood 12/10/2021 7:19 AM 2 7:19 EDT AM EDT Iker Cuevas MD POINT OF CARE TEST ORDERABLE S Performing Organization Address City/[facility]/ZIP [place] [address] Heparin (unfractionated) Level (12/10/2021 4:25 AM EDT) athologist Signature Heparin UFH 0.69 IU/mL [facility] LABORATORY Comment: Heparin (anti-Xa) levels [...] Address City/State/Z[place] [address] (ABNORMAL) Differential, Automated (12/10/2021 4:25 AM EDT) [facility] Method Time Signature Neutrophils % 79.8 % [facility] LABORATORY Neutr Abs (ANC) 7.47 (H) 1.70 - [facility] 6.10 [facility] x10(3)/[facility] LABORATORY Lymphocytes % 10.6 % [facility] LABORATORY Lymphocytes Abs 1.0 0.9 - 3.2 [facility] x10(3)/[facility] LABORATORY Monocytes % 8.4 % [facility] LABORATORY Monocyte Abs 0.8 0.3 - 0.9 [facility] x10(3)/[facility] LABORATORY Eosinophils % 0.6 % [facility] LABORATORY Eosinophils Abs 0.1 0.0 - 0.4 [facility] x10(3)/[facility] LABORATORY Basophils % 0.2 % [facility] LABORATORY Basophils Abs 0.0 0.0 - 0.1 [facility] x10(3)/[facility] LABORATORY Immature Gran % 0.40 % [facility] LABORATORY Comment: Immature granulocytes(IG's)percentage an d absolute count will include metamyelocytes, myelocytes, and promyelo cytes. Blood smears from CBCs yielding IG's will be scanned manually for concor dance. If this scan disagrees with the automated IG or if promyelocytes are not ed, a manual differential will be performed. Melisa Gran Abs 0.04 0.00 - 0.04 x10(3)/[facility] MAR Y [facility] LABORATORY Specimen Anatomical Collection Method Collection Time Receive d Time (Source) Location / / Volume Laterality Blood 12/10/2021 4:25 AM 2 4:34 EDT AM EDT Resulting Agency Comment Spec In Lab Morgan BROWN HEMATOLOGY ORDERABLES Performing Organization Address City/State/Z[place] [address] (ABNORMAL) Hemogram (12/10/2021 4:25 AM EDT) Analysis Performed At Patho logist Time Signature WBC 9.4 4.0 - 9.5 [facility] x10(3)/[facility] LABORATORY RBC 3.81 (L) 4.58 - [facility]YAN 5.54 [facility] x10(6)/[facility] LABORATORY Hemoglobin 11.1 (L) 13.7 - [facility] 16.5 g/dL [facility] Hematocrit 34.0 (L) 40.5 - [facility] 48.5 % [facility] MCV 89.2 82.9 - [facility] 93.1 [facility] MCH 29.1 27.5 - [facility] RYAN 32.1 pg [facility] MCHC 32.6 32.0 - [facility]7 g/dL [facility] Platelets 183 145 - 357 [facility] x10(3)/[facility] LABORATORY RDWSD 49.9 (H) 36.0 - [facility] RYAN 45.0 [facility] LABORATORY RDWCV 15.2 (H) 11.4 - [facility] 13.8 % [facility] MPV 9.8 7.6 - 12.9 [facility] LABORATORY nRBC % Auto 0.0 % [facility] nRBC Abs Auto 0.000 0.000 - [facility] RYAN 0.000 [facility] x10(3)/[facility] LABORATORY Specimen Anatomical Collection Method Collection Time Receive d Time (Source) Location / / Volume Laterality Blood 12/10/2021 4:25 AM 2 4:34 EDT AM EDT Resulting Agency Comment Spec In Lab Morgan BROWN HEMATOLOGY ORDERABLES Performing Organization Address City/State/[place] [address] (ABNORMAL) Prothrombin Time (12/10/2021 4:25 AM EDT) athologist Signature PT 20.0 (H) 9.4 - 12.5 [facility] LABORATORY INR 1.7 [facility] Comment: An [...] Organization Address City/State/[place] [address] (ABNORMAL) BMP w/fasting Glucose (12/10/2021 4:25 AM EDT) athologist Signature Glucose 210 (H) 65 - 99 [facility] Fasting mg/dL [facility] Comment: ?Fasting* Glucose Interpretive C riteria [...] BUN 54 (H) 10 - 20 mg/dL [facility]ORY Creatinine 1.52 (H) 0.80 - 1.50 mg/dL [facility] [...] estions. Chloride 104 98 - 107 mmol/L [facility] CO2 23 22 - 31 mmol/L [facility] Anion Gap 13 5 - 15 mmol/L [facility] LAB[facility]ORY Calcium 8.0 (L) 8.5 - 10.5 mg/dL [facility] Estimated GFR 44 (L) >=60 mL/min/1.73 m?? [facility] [...] Organization Address City/State/[place] [address] Magnesium (12/10/2021 4:25 AM EDT) athologist Signature Magnesium 0.95 0.69 - 1.07 [facility] RYAN mmol/L [facility] Specimen Anatomical Collection Method Collection Time Receive d Time (Source) Location / / Volume Laterality Blood 12/10/2021 4:25 AM 2 4:34 EDT AM EDT Resulting Agency Comment Spec In Lab Iker Cuevas MD CHEMISTRY ORDERABLES Performing Organization Address City/State/Z[place] [address] POCT Glucose (12/10/2021 1:58 AM EDT) athologist Signature POC Glucose 164 65 - 199 [facility] RYAN mg/dL [facility] Comment: Supplemental ranges: <140 mg/dL before meals <180 mg/dL all other times of the day Specimen Anatomical Collection Method Collection Time Receive d Time (Source) Location / / Volume Laterality Blood 12/10/2021 1:58 AM 2 1:58 EDT AM EDT Iker Cuevas MD POINT OF CARE TEST ORDERABLE S Performing Organization Address City/State/[place] [address] (ABNORMAL) POCT Glucose (12/09/2021 9:02 PM EDT) athologist Signature POC Glucose 313 (H) 65 - 199 [facility] mg/dL [facility] Comment: Supplemental ranges: <140 mg/dL before meals <180 mg/dL all other times of the day Specimen Anatomical Collection Method Collection Time Receive d Time (Source) Location / / Volume Laterality Blood 12/09/2021 9:02 PM 2 9:02 EDT PM EDT Iker Cuevas MD POINT OF CARE TEST ORDERABLE S Performing Organization Address City/State/[place] [address] Heparin (unfractionated) Level (12/09/2021 7:30 PM EDT) athologist Signature Heparin UFH 0.48 IU/mL [facility] Comment: Heparin (anti-Xa) levels should be [...] Address City/State/[place] [address] (ABNORMAL) Basic Metabolic Panel (non-fasting) (12/09/2021 7:30 PM EDT) P athologist Signature Glucose Lvl 372 (H) 65 - 199 [facility] mg/dL [facility] Comment: Diabetes: >=200 mg/dL plus symp toms BUN 56 (H) 10 - 20 mg/dL [facility]ORY Creatinine 1.75 (H) 0.80 - 1.50 mg/dL [facility] mmol/L [facility] CO2 22 22 - 31 mmol/L [facility] Anion Gap 14 5 - 15 mmol/L [facility]ORY Calcium 8.1 (L) 8.5 - 10.5 mg/dL [facility] Estimated GFR 37 (L) >=60 mL/min/1.73 m?? [facility] [...] Organization Address City/State/Z[place] [address] (ABNORMAL) POCT Glucose (12/09/2021 6:34 PM EDT) P athologist Signature POC Glucose 408 (H) 65 - 199 [facility] Comment: Supplemental ranges: <140 mg/dL before meals <180 mg/dL all other times of the day Specimen Anatomical Collection Method Collection Time Receive d Time (Source) Location / / Volume Laterality Blood 12/09/2021 6:34 PM 2 6:34 EDT PM EDT Iker Cuevas MD POINT OF CARE TEST ORDERABLE S Performing Organization Address City/State/Z[place] [address] (ABNORMAL) POCT Glucose (12/09/2021 6:32 PM EDT) athologist Signature POC Glucose 356 (H) 65 - 199 [facility]/dL [facility] Comment: Supplemental ranges: <140 mg/dL before meals <180 mg/dL all other times of the day Specimen Anatomical Collection Method Collection Time Receive d Time (Source) Location / / Volume Laterality Blood 12/09/2021 6:32 PM 2 6:32 EDT PM EDT Iker Cuevas MD POINT OF CARE TEST ORDERABLE S Performing Organization Address City/State/[place] [address] (ABNORMAL) POCT Glucose (12/09/2021 4:19 PM EDT) athologist Signature POC Glucose 347 (H) 65 - 199 [facility] mg/dL [facility] Comment: Supplemental ranges: <140 mg/dL before meals <180 mg/dL all other times of the day Specimen Anatomical Collection Method Collection Time Receive d Time (Source) Location / / Volume Laterality Blood 12/09/2021 4:19 PM 2 4:19 EDT PM EDT Iker Cuevas MD POINT OF CARE TEST ORDERABLE S Performing Organization Address City/State/[place] [address] Heparin (unfractionated) Level (12/09/2021 1:29 PM EDT) athologist Signature Heparin UFH 0.42 IU/mL [facility] LABORATORY Comment: Heparin (anti-Xa) levels [...] Cuevas MD HEMATOLOGY ORDERABLES Performing Organization Address City/[facility]/ZIP [place] [address] (ABNORMAL) POCT Glucose (12/09/2021 12:02 PM EDT) P athologist Signature POC Glucose 235 (H) 65 - 199 [facility] mg/dL [facility] Comment: Supplemental ranges: <140 mg/dL before meals <180 mg/dL all other times of the day Specimen Anatomical Collection Method Collection Time Receive d Time (Source) Location / / Volume Laterality Blood 12/09/2021 12:02 12/09/2021 PM EDT 12:02 PM EDT Iker Cuevas MD POINT OF CARE TEST ORDERABLE S Performing Organization Address City/[facility]/Z[place] [address] (ABNORMAL) POCT Glucose (12/09/2021 9:44 AM EDT) P athologist Signature POC Glucose 214 (H) 65 - 199 [facility] mg/dL [facility] Comment: Supplemental ranges: <140 mg/dL before meals <180 mg/dL all other times of the day Specimen Anatomical Collection Method Collection Time Receive d Time (Source) Location / / Volume Laterality Blood 12/09/2021 9:44 AM 9:44 EDT AM EDT Iker Cuevas MD POINT OF CARE TEST ORDERABLE S Performing Organization Address City/[facility]/Z[place] [address] EKG 12 Lead (12/09/2021 7:57 AM EDT) Component Value Ref Range Test Analysis Performed Pathologis t Method Time At Signature Ventricular rate 101 BPM MUSE SYSTEM Atrial Rate 101 BPM MUSE SYSTEM P-R Interval 150 ms MUSE SYSTEM QRS Duration 112 ms MUSE SYSTEM Q-T Interval 364 ms MUSE SYSTEM QTC Calculated 471 ms MUSE SYSTEM (Bezet) Calculated P [place] 59 degrees MUSE SYSTEM Calculated R [place] -42 degrees MUSE SYSTEM Calculated T [place] 102 degrees MUSE SYSTEM INTERPRETATION Sinus tachycardia Occasional Premature ventricular com plexes MUSE SYSTEM Left axis deviation 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) Abnormal ECG When compared with ECG of 08-DEC-2021 16:40, Premature ventricular complexes are now Present Confirmed by MD Jim, Yoon ([id number]) on 12/10/2021 4:55:06 PM Specimen Anatomical Collection Method Collection Time Receive d Time (Source) Location / / Volume Laterality 12/09/2021 7:57 AM 2 4:55 EDT PM EDT Iker Cuevas MD ECG ORDERABLES Performing Organization Address City/State/ZIP Code Phon e Number MUSE SYSTEM (ABNORMAL) POCT Glucose (12/09/2021 7:28 AM EDT) P athologist Signature POC Glucose 263 (H) 65 - 199 [facility] mg/dL [facility] Comment: Supplemental ranges: <140 mg/dL before meals <180 mg/dL all other times of the day Specimen Anatomical Collection Method Collection Time Receive d Time (Source) Location / / Volume Laterality Blood 12/09/2021 7:28 AM 7:28 EDT AM EDT Iker Cuevas MD POINT OF CARE TEST ORDERABLE S Performing Organization Address City/State/[place] [address] (ABNORMAL) Hemoglobin A1c (12/09/2021 [...] Avg Gluc See note mg/dL [facility] Comment: Estimated Average Glucose [...] with hemoglobinopathies. Additional resources are available on [facility] ADA website. Macario HAMMOND, Ruthann J, Deysi R, et al. ??Tr anslating the A1C assay into estimated average glucose values. ??Diabetes Care 2008:31(8):7701-1577. Specimen Anatomical Collection Method Collection Time Receive d Time (Source) Location / / Volume Laterality Blood Venous Draw / 12/09/2021 6:18 AM 12/10/19 22 Unknown EDT 12:24 PM EDT Resulting Agency Comment Spec In Lab Migdalia BROWN CHEMISTRY ORDERABLES Performing Organization Address City/State/[place] [address] (ABNORMAL) Prothrombin Time (12/09/2021 6:18 AM EDT) athologist Signature PT 26.6 (H) 9.4 - 12.5 [facility] LABORATORY INR 2.3 [facility] LAB[facility] Comment: An [...] Migdalia BROWN HEMATOLOGY ORDERABLES Performing Organization Address City/[facility]/[place] [address] Heparin (unfractionated) Level (12/09/2021 6:18 AM EDT) athologist Signature Heparin UFH 0.24 IU/mL [facility] LABORATORY Comment: Heparin (anti-Xa) levels [...] Cuevas MD HEMATOLOGY ORDERABLES Performing Organization Address City/[facility]/[place] [address] (ABNORMAL) Differential, Automated (12/09/2021 6:18 AM EDT) [facility] gist Method Time Signature Neutrophils % 91.5 % [facility] Neutr Abs (ANC) 15.78 (H) 1.70 - [facility] 6.10 [facility] x10(3)/[facility] LABORATORY Lymphocytes % 2.9 % [facility] Lymphocytes Abs 0.5 (L) 0.9 - 3.2 [facility] x10(3)/[facility] LABORATORY Monocytes % 4.9 % [facility] Monocyte Abs 0.8 0.3 - 0.9 [facility] x10(3)/[facility] LABORATORY Eosinophils % 0.0 % [facility] Eosinophils Abs 0.0 0.0 - 0.4 [facility] x10(3)/[facility] LABORATORY Basophils % 0.2 % [facility] Basophils Abs 0.0 0.0 - 0.1 [facility] x10(3)/[facility] LABORATORY Immature Gran % 0.50 % [facility] Comment: Immature granulocytes(IG's)percentage an d absolute count will include metamyelocytes, myelocytes, and promyelo cytes. Blood smears from CBCs yielding IG's will be scanned manually for concor dance. If this scan disagrees with the automated IG or if promyelocytes are not ed, a manual differential will be performed. Melisa Gran Abs 0.09 (H) 0.00 - 0.04 x10(3)/[facility] LABORATORY Specimen Anatomical Collection Method Collection Time Receive d Time (Source) Location / / Volume Laterality Blood 12/09/2021 6:18 AM 6:33 EDT AM EDT Resulting Agency Comment Spec In Lab Morgan BROWN HEMATOLOGY ORDERABLES Performing Organization Address City/State/ZIP Code Phon e Number [place] [id number] LAB[address]ORY Drive (ABNORMAL) Hemogram (12/09/2021 6:18 AM EDT) Analysis Performed At Patho logist Time Signature WBC 17.2 (H) 4.0 - 9.5 [facility] x10(3)/[facility] LABORATORY RBC 4.32 (L) 4.58 - [facility] 5.54 [facility] x10(6)/[facility] LABORATORY Hemoglobin 12.6 (L) 13.7 - [facility] 16.5 g/dL [facility] Hematocrit 38.9 (L) 40.5 - [facility] 48.5 % [facility] MCV 90.0 82.9 - [facility] 93.1 [facility] LABORATORY MCH 29.2 27.5 - [facility] 32.1 pg [facility] MCHC 32.4 32.0 - [facility] 35.7 g/dL [facility] Platelets 193 145 - 357 [facility] x10(3)/[facility] LABORATORY RDWSD 50.4 (H) 36.0 - [facility] 45.0 [facility] LABORATORY RDWCV 15.2 (H) 11.4 - [facility] 13.8 % [facility] MPV 9.5 7.6 - 12.9 [facility] LABORATORY nRBC % Auto 0.0 % [facility]ORY nRBC Abs Auto 0.000 0.000 - [facility] 0.000 [facility] x10(3)/[facility] LABORATORY Specimen Anatomical Collection Method Collection Time Receive d Time (Source) Location / / Volume Laterality Blood 12/09/2021 6:18 AM 2 6:33 EDT AM EDT Resulting Agency Comment Spec In Lab Morgan BROWN HEMATOLOGY ORDERABLES Performing Organization Address City/State/[place] [address] Lipid Panel (Reflex Direct LDL) (12/09/2021 6:18 AM EDT) P athologist Signature Chol, Total 105 mg/dL [facility] Comment: Lower Risk: <200 mg/dL Average Risk: 200-239 mg/dL Higher Risk: >qy=559 mg/dL Triglycerides 133 mg/dL [facility] LABORATORY Comment: Average Risk/Lower Risk: <150 mg/dL Borderline High Risk: 150-199 mg/dL High Risk: 200-499 mg/dL Very High Risk: >lv=968 mg/dL HDL 42 mg/dL [facility] Comment: Males: ?? Higher Risk: <40 mg/dL Females: ?? Higher Risk: <50 mg/dL LDL Cholesterol 36 mg/dL [facility] Comment: Lowest Risk: <100 mg/dL Lower Risk: 100-129 mg/dL Borderline High Risk: 130-159 mg/dL High Risk: 160-189 mg/dL Very High Risk: >by=246 mg/dL Chol/HDL Ratio 2.5 ratio [facility]ORY Lipid Interpretation See Note [facility] Comment: Lipid management should be guided by a p atient? s ASCVD risk, goals and preferences. ACC/AHA Guidelines recommend high intens ity statin if clinical ASCVD or LDL greater than or equal to 190 mg/dL. [email or web address] Adults aged 40-75 with LDL 70-189 mg/dL should have their 10 year ASCVD risk estimated with the ACC/AHA ASCVD risk es timator http://tools.acc.org/MZTGK-Nmyk-Tcgpxoss r/ Statin should be discussed if risk [...] Address City/State/[place] [address] TSH (12/09/2021 6:18 AM EDT) athologist Signature TSH 1.60 0.27 - 4.20 [facility] mcIU/mL [facility] Comment: Reference Interval (mcIU/mL): Females: ??First Trimester: 0.23-3.88 ??Second Trimester: 0.22-3.90 ??Third Trimester: 0.44-4.66 Specimen Anatomical Collection Method Collection Time Receive d Time (Source) Location / / Volume Laterality Blood 12/09/2021 6:18 AM 2 6:33 EDT AM EDT Resulting Agency Comment Spec In Lab Iker Cuevas MD CHEMISTRY ORDERABLES Performing Organization Address City/[facility]/ZIP Code Phon e Number [address] Hepatic Function Panel (12/09/2021 6:18 AM EDT) athologist [facility] Total Protein 7.3 6.1 - 8.0 [facility]YAN g/dL [facility] Albumin 4.2 3.2 - 5.2 [facility] g/dL [facility] AST 25 0 - 39 [facility] unit/L [facility] ALT 15 0 - 55 [facility] unit/L [facility] Alk Phos 75 40 - 130 [facility] unit/L [facility] Total 1.1 0.2 - 1.3 [facility] Bilirubin mg/dL [facility] Bili, Direct 0.2 0.0 - 0.3 [facility] mg/dL [facility] Specimen Anatomical Collection Method Collection Time Receive d Time (Source) Location / / Volume Laterality Blood 12/09/2021 6:18 AM 2 6:33 EDT AM EDT Resulting Agency Comment Spec In Lab Iker Cuevas MD CHEMISTRY ORDERABLES Performing Organization Address City/[facility]/ZIP [facility] [place] [address] (ABNORMAL) BMP w/fasting Glucose (12/09/2021 6:18 AM EDT) athologist Signature Glucose 235 (H) 65 - 99 [facility] Fasting mg/dL [facility] Comment: ?Fasting* Glucose Interpretive C riteria [...] BUN 49 (H) 10 - 20 mg/dL [facility] LABORATORY Creatinine 1.33 0.80 - 1.50 mg/dL [facility]ORY Sodium 139 135 - 145 mmol/L [facility] LABORATORY [...] [facility] Calcium 8.8 8.5 - 10.5 mg/dL [facility] Estimated GFR 52 (L) >=60 mL/min/1.73 m?? [facility] [...] Address City/State/ZIP Code Phon e Number [address] Magnesium (12/09/2021 6:18 AM EDT) athologist Signature Magnesium 0.81 0.69 - 1.07 [facility] mmol/L [facility] Specimen Anatomical Collection Method Collection Time Receive d Time (Source) Location / / Volume Laterality Blood 12/09/2021 6:18 AM 2 6:33 EDT AM EDT Resulting Agency Comment Spec In Lab Iker Cuevas MD CHEMISTRY ORDERABLES Performing Organization Address City/[facility] [place] [address] (ABNORMAL) Troponin (12/09/2021 6:18 AM EDT) athologist Signature Troponin-T 1.13 (H) 0.00 - [facility] 0.00 ng/mL [facility] Comment: The 99th percentile for Troponin T is le ss than 0.01 ng/mL, any detectable cTnT concentration using this assay should be considered elevated. According to the third universal definit ion of myocardial infarction the following criteria with a clinical prese ntation consistent with acute myocardial ischemia meets the diagnosis for a myocardial infarction (TN). Detection of a rise and/or fall of [...] additional sample may be indicated. Reference: Third [place] Definition of Myocardial Infarction. Journal of the [employer] 2012;60:1581-98 Specimen Anatomical Collection Method Collection Time Receive d Time (Source) Location / / Volume Laterality Blood 12/09/2021 6:18 AM 6:33 EDT AM EDT Resulting Agency Comment Spec In Lab Iker Cuevas MD CHEMISTRY ORDERABLES Performing Organization Address City/State/ZIP Code Phon e Number [place] [id number]OSP[address] LAB[address]ORY [address] XR Chest One View [...] who have questions please contact the health healthcare network pricing consultant that requested your imaging first. ? Narrative [...] ho have questions please contact the health healthcare network pricing consultant that requested your imaging first. Amber Sanches MD IMG DX ORDERABLES (ABNORMAL) BLOOD GAS 2 ARTERIAL (12/09/2021 5:14 AM EDT) Analysis Performed At [facility] Time Signature pH Art 7.43 7.35 - [facility] 7.45 [facility] pCO2 Art 36 35 - 45 [facility] LABORATORY pO2 Art 67 (L) 85 - 104 [facility] LABORATORY HCO3 Art 23.4 20.0 - [facility] 26.0 [facility] mmol/L [facility] LABORATORY BE Art -0.9 -3.0 - 3.0 [facility] mmol/L [facility] Hgb Blood Gas 13.2 (L) 13.7 - [facility] 16.5 g/dL [facility] O2HB Art 91.3 (L) 94.0 - [facility] 97.0 % [facility] COHB Art 0.4 % [facility] Whole Blood 104 98 - 107 mmol/L [facility] Gluc Whole Bld 223 (H) 65 - 199 mg/dL [facility]ORY Comment: Diabetes: >=200 mg/dL plus symp toms. Lactate WB 2.7 (H) 0.5 - 2.2 mmol/L [facility] LABORATORY FIO2 Art 35 [...] Organization Address City/State/Z[place] [address] POCT Glucose (12/09/2021 4:46 AM EDT) athologist Signature POC Glucose 198 65 - 199 [facility] mg/dL [facility] Comment: Supplemental ranges: <140 mg/dL before meals <180 mg/dL all other times of the day Specimen Anatomical Collection Method Collection Time Receive d Time (Source) Location / / Volume Laterality Blood 12/09/2021 4:46 AM 2 4:46 EDT AM EDT Iker Cuevas MD POINT OF CARE TEST ORDERABLE S Performing Organization Address City/[facility]/ZIP [place] [address] (ABNORMAL) POCT Glucose (12/09/2021 3:01 AM EDT) athologist Signature POC Glucose 225 (H) 65 - 199 [facility] mg/dL [facility] Comment: Supplemental ranges: <140 mg/dL before meals <180 mg/dL all other times of the day Specimen Anatomical Collection Method Collection Time Receive d Time (Source) Location / / Volume Laterality Blood 12/09/2021 3:01 AM 2 3:01 EDT AM EDT Iker Cuevas MD POINT OF CARE TEST ORDERABLE S Performing Organization Address City/[facility]/Z[place] [address] (ABNORMAL) POCT Glucose (12/08/2021 10:55 PM EDT) athologist Signature POC Glucose 327 (H) 65 - 199 [facility] mg/dL [facility] Comment: Supplemental ranges: <140 mg/dL before meals <180 mg/dL all other times of the day Specimen Anatomical Collection Method Collection Time Receive d Time (Source) Location / / Volume Laterality Blood 12/08/2021 10:55 12/08/2021 PM EDT 10:55 PM EDT Iker Cuevas MD POINT OF CARE TEST ORDERABLE S Performing Organization Address City/State/[place] [address] Heparin (unfractionated) Level (12/08/2021 10:03 PM EDT) athologist Signature Heparin UFH 0.18 IU/mL [facility] LABORATORY Comment: Heparin (anti-Xa) levels [...] Organization Address City/State/[place] [address] (ABNORMAL) Troponin (12/08/2021 10:03 PM EDT) athologist Signature Troponin-T 0.92 (H) 0.00 - [facility] 0.00 ng/mL [facility] Comment: The 99th percentile for Troponin T is le ss than 0.01 ng/mL, any detectable cTnT concentration using this assay should be considered elevated. According to the third universal definit ion of myocardial infarction the following criteria with a clinical prese ntation consistent with acute myocardial ischemia meets the diagnosis for a myocardial infarction (TN). Detection of a rise and/or fall of [...] additional sample may be indicated. Reference: Third [place] Definition of Myocardial Infarction. Journal of the [place] [employer] 2012;60:1581-98 Specimen Anatomical Collection Method Collection Time Receive d Time (Source) Location / / Volume Laterality Blood 12/08/2021 10:03 12/08/2021 PM EDT 10:31 PM EDT Resulting Agency Comment Spec In Lab Iker Cuveas MD CHEMISTRY ORDERABLES Performing Organization Address City/[facility]/ZIP [place] [address] (ABNORMAL) POCT Glucose (12/08/2021 8:22 PM EDT) athologist Signature POC Glucose 429 (H) 65 - 199 [facility] mg/dL [facility] Comment: Supplemental ranges: <140 mg/dL before meals <180 mg/dL all other times of the day Specimen Anatomical Collection Method Collection Time Receive d Time (Source) Location / / Volume Laterality Blood 12/08/2021 8:22 PM 8:22 EDT PM EDT Iker Cuevas MD POINT OF CARE TEST ORDERABLE S Performing Organization Address City/State/[place] [address] (ABNORMAL) POCT Glucose (12/08/2021 7:06 PM EDT) P athologist Signature POC Glucose 442 (H) 65 - 199 [facility] mg[facility]dL [facility] Comment: Supplemental ranges: <140 mg/dL before meals <180 mg/dL all other times of the day Specimen Anatomical Collection Method Collection Time Receive d Time (Source) Location / / Volume Laterality Blood 12/08/2021 7:06 PM 2 7:06 EDT PM EDT Iker Cuevas MD POINT OF CARE TEST ORDERABLE S Performing Organization Address City/State/ZIP Code Phon e Number [address] Magnesium (12/08/2021 6:02 PM EDT) athologist Signature Magnesium 0.86 0.69 - 1.07 [facility] mmol/L [facility] Specimen Anatomical Collection Method Collection Time Receive d Time (Source) Location / / Volume Laterality Blood 12/08/2021 6:02 PM 2 6:36 EDT PM EDT Resulting Agency Comment Spec In Lab Iker Cuevas MD CHEMISTRY ORDERABLES Performing Organization Address City/[facility]/ZIP [place] [address] (ABNORMAL) Basic Metabolic Panel (non-fasting) (12/08/2021 6:02 PM EDT) athologist Signature Glucose Lvl 392 (H) 65 - 199 [facility] mg/dL [facility] Comment: Diabetes: >=200 mg/dL plus symp toms BUN 41 (H) 10 - 20 mg/dL [facility] LABORATORY Creatinine 1.44 0.80 - 1.50 mg/dL [facility] [...] mmol/L [facility] LABORATORY CO2 20 (L) 22 - 31 mmol/L [facility] LABOR[facility]ORY Anion Gap 16 (H) 5 - 15 mmol/L [facility] LABORATORY Calcium 8.6 8.5 - 10.5 mg/dL [facility] LABOR[facility]ORY Estimated GFR 47 (L) >=60 mL/min/1.73 m?? [facility] [...] Organization Address City/State/[place] [address] (ABNORMAL) Differential, Automated (12/08/2021 6:02 PM EDT) [facility] Method Time Signature Neutrophils % 89.5 % [facility] LABORATORY Neutr Abs (ANC) 13.97 (H) 1.70 - [facility] 6.10 [facility] x10(3)/[facility] L LABORATORY Lymphocytes % 3.7 % [facility] LABORATORY Lymphocytes Abs 0.6 (L) 0.9 - 3.2 [facility] x10(3)/[facility] LABORATORY Monocytes % 6.1 % [facility] LABORATORY Monocyte Abs 1.0 (H) 0.3 - 0.9 [facility] x10(3)/[facility] LABORATORY Eosinophils % 0.0 % [facility] LABORATORY Eosinophils Abs 0.0 0.0 - 0.4 [facility] x10(3)/[facility] LABORATORY Basophils % 0.2 % [facility] LABORATORY Basophils Abs 0.0 0.0 - 0.1 [facility] x10(3)/[facility] LABORATORY Immature Gran % 0.50 % [facility] LAB[facility]ORY Comment: Immature granulocytes(IG's)percentage an d absolute count will include metamyelocytes, myelocytes, and promyelo cytes. Blood smears from CBCs yielding IG's will be scanned manually for concor dance. If this scan disagrees with the automated IG or if promyelocytes are not ed, a manual differential will be performed. Melisa Gran Abs 0.08 (H) 0.00 - 0.04 x10(3)/[facility] LABORATORY Specimen Anatomical Collection Method Collection Time Receive d Time (Source) Location / / Volume Laterality Blood 12/08/2021 6:02 PM 6:36 EDT PM EDT Resulting Agency Comment Spec In Lab Morgan BROWN HEMATOLOGY ORDERABLES Performing Organization Address City/State/[place] [address] (ABNORMAL) Hemogram (12/08/2021 6:02 PM EDT) Analysis Performed At Patho logist Time Signature WBC 15.6 (H) 4.0 - 9.5 [facility] x10(3)/[facility] LABORATORY RBC 4.05 (L) 4.58 - [facility] 5.54 [facility] x10(6)/[facility] LABORATORY Hemoglobin 11.8 (L) 13.7 - [facility] 16.5 g/dL [facility] Hematocrit 35.8 (L) 40.5 - [facility] 48.5 % [facility] MCV 88.4 82.9 - [facility] 93.1 [facility] LABORATORY MCH 29.1 27.5 - [facility] 32.1 pg [facility] MCHC 33.0 32.0 - [facility] 35.7 g/dL [facility] Platelets 178 145 - 357 [facility] x10(3)/[facility] LABORATORY RDWSD 49.3 (H) 36.0 - [facility].0 [facility] RDWCV 15.1 (H) 11.4 - [facility] 13.8 % [facility] MPV 10.4 7.6 - 12.9 [facility] LABORATORY nRBC % Auto 0.0 % [facility] LABORATORY nRBC Abs Auto 0.000 0.000 - [facility] 0.000 [facility] x10(3)/[facility] LABORATORY Specimen Anatomical Collection Method Collection Time Receive d Time (Source) Location / / Volume Laterality Blood 12/08/2021 6:02 PM 6:36 EDT PM EDT Resulting Agency Comment Spec In Lab Morgan BROWN HEMATOLOGY ORDERABLES Performing Organization Address City/State/[place] [address] (ABNORMAL) Troponin (12/08/2021 6:02 PM EDT) P athologist Signature Troponin-T 0.89 (H) 0.00 - [facility] 0.00 ng/mL [facility] Comment: The 99th percentile for Troponin T is le ss than 0.01 ng/mL, any detectable cTnT concentration using this assay should be considered elevated. According to the third universal definit ion of myocardial infarction the following criteria with a clinical prese ntation consistent with acute myocardial ischemia meets the diagnosis for a myocardial infarction ([place]). Detection of a rise and/or fall of [...] additional sample may be indicated. Reference: Third [place] Definition of Myocardial Infarction. Journal of the [place] College [employer]iology 2012;60:1581-98 Specimen Anatomical Collection Method Collection Time Receive d Time (Source) Location / / Volume Laterality Blood 12/08/2021 6:02 PM 6:36 EDT PM EDT Resulting Agency Comment Spec In Lab Iker Cuevas MD CHEMISTRY ORDERABLES Performing Organization Address City/State/ZIP [place] [address] COVID-19 PCR (12/08/2021 5:00 PM EDT) [facility] Method Time Signature SARS-CoV-2 Not Detected Not Detected BARBARA RNA PCR [facility] LABORATORY Comment: This result should be interpreted in com bination with the clinical observations, patient history and epidem iological information. For testing of asymptomatic individuals, assay performa nce characteristics and clinical utility have not been evaluated. Testing for SARS-CoV-2 (Severe acute respiratory syndrome coronavirus 2, form erly known as 2018 novel coronavirus or 2018-nCoV) to aid in the diagnosis of CO VID-19 is performed using the Simplexa COVID-19 Direct Assay by [employer] as authorized by the FDA issued Emergency [...] Department of Pathology and Laboratory Medicine at [facility], certified under the Clinical Laboratory Improvement [...] clinical management guidance information are available at [facility] CDC Coronavirus Disease 2019 (COVID-19) webpage under Information fo r Healthcare Professionals (https://www.cdc.gov/coronavirus/2019-nc ov/hcp/index.html). Additional information about this and ot her EUA tests can be found in provider and patient fact sheets at the following FDA website: https://www.fda.gov/medical-devices/kkjbtdvpqcd-yfymuby-4719-rcdfs-95-bxtccwfxi- blf-yerhszdyrqlrcu-gwqlfzk-devices/gyuhv-lyuaxyfdbug-gebg SARS-CoV-2 Source D[employer] COUNSEL[employer] Swab [facility] LABORATORY Specimen (Source) Anatomical Collection Method Collection Time Re ceived Time Location / / Volume Laterality Nasopharyngeal Swab 12/08/2021 5:00 12/08 PM EDT 6:03 PM EDT Comment: Symptoms->Surveillance Resulting Agency Comment Spec In Lab Iker Cuevas MD MICROBIOLOGY - GENERAL ORDER [place] Performing Organization Address City/State/[place] [address] EKG 12 Lead (12/08/2021 4:40 PM EDT) Component Value Ref Range Test Analysis Performed Pathologis t Method Time At Signature Ventricular rate 78 BPM MUSE SYSTEM Atrial Rate 78 BPM MUSE SYSTEM P-R Interval 152 ms MUSE SYSTEM QRS Duration 96 ms MUSE SYSTEM Q-T Interval 396 ms MUSE SYSTEM QTC Calculated 451 ms MUSE SYSTEM (Bezet) Calculated P [place] 44 degrees MUSE SYSTEM Calculated R [place] -31 degrees MUSE SYSTEM Calculated T [place] 124 degrees MUSE SYSTEM INTERPRETATION Normal sinus rhythm MUSE SYSTEM Left axis deviation ST elevation ??in V1, minimal eleavtion V2 ST & T wave abnormality, consider lateral ischemia Abnormal ECG When compared with ECG of 06-SEP-2019 14:15, Questionable change in initial forces of Septal leads Confirmed by Jeanie Lucas (Cliff) on 12/09/2021 4:34:49 P M Specimen Anatomical Collection Method Collection Time Receive d Time (Source) Location / / Volume Laterality 12/08/2021 4:40 PM 2 4:34 EDT PM EDT Iker Cuevas MD ECG ORDERABLES Performing Organization Address City/State/ZIP Code Phon e Number MUSE SYSTEM (ABNORMAL) POCT Glucose (12/08/2021 4:34 PM EDT) athologist Signature POC Glucose 400 (H) 65 - 199 [facility] mg/dL [facility] Comment: Supplemental ranges: <140 mg/dL before meals <180 mg/dL all other times of the day Specimen Anatomical Collection Method Collection Time Receive d Time (Source) Location / / Volume Laterality Blood 12/08/2021 4:34 PM 2 4:34 EDT PM EDT Iker Cuevas MD POINT OF CARE TEST ORDERABLE S Performing Organization Address City/State/Z[place] [address] documented in this encounter [...] on Wed12/11/21 at 0915, Until Discontinued, Routine fentaNYL (pf) [...] Given 11/23 10:30 AM EDT 300 mcg (HOME THEATER INSTALLER) ONCE PRN, Starting on Wed12/10/21 at 1030, [...] (Give n - Provider: Emma Garcia RN)0805 (MAR Hold [...] Boogie RN) 0835 (Given - Provider: Emma Garcia, VAMSI)204 (Given - Provider: Derrick Galeas RN) 0830 (Given - Provider: Lilliana Esteban, VAMSI) 5 mg, Oral, 2 TIMES DAILY, First dose on Wed12/10/21 at 2100, Until Discontinued, Anticoagulant, Routine aspirin chewable tablet 81 mg 0735 (Given - Provider: Emma Garcia, VAMSI)0805 (MAR Hold - Provider: Admin Adt - [...] Adt) atorvastatin (Lipitor) tablet 40 mg 0805 (MAR Hold - P rochanningder: Admin Adt - Reason: Transfer to a Procedural area)1230 (MAR Unhold - Provider: Admin Adt)1744 (Given - Provider: Emma Garcia RN) 1717 (Given - Provider: Emma Garcia RN) 40 mg, Oral, EVERY EVENING, First dose o n 12/08/21 at 1730, Until Discontinued, Routine clopidogreL (Plavix) tablet 75 mg (CANCELED) 0737 (Giv en - Provider: Emma Garcia RN)0805 (MAR Hold - Provider: Admin Adt - Reason: Transfer to a Procedural area)0900 (Not Given - Provider: Emma Garcia RN - Reason: See comment - Comment: given before cath) 75 mg, Oral, DAILY, First dose on Wed at 0900, Until Discontinued, Routine 1230 (MAR Unhold - Provider: Admin Adt) clopidogreL (Plavix) tablet 75 mg 0834 (Given - Provider: Emma Garcia RN) 0829 (Given - Provider: Lilliana Esteban RN) 75 mg, Oral, DAILY, First dose on Ivis at 0900, Until Discontinued, Routine empagliflozin (Jardiance) Tab 10 mg 1004 (Given - Provider: Emma Garcia RN) 10 mg, Oral, DAILY, First dose on Ivis 12/11/21 at 0915, Until Dis continued furosemide (Lasix) [...] uni t/mL) subcutaneous injection vial 42 Units 2042 (Given - Provider: Derrick Galeas RN) 42 [...] Scal 1130 (Not Given - Provider: Emma Garcia, VAMSI - Reason: Transfer to a Procedural area [...] Garcia RN )2034 (Given - Provider: Barbara Boogie, RN)2346 (Given - Provider: Barbara Boogie RN) 0507 (Given - Provider: Barbara Boogie RN)0745 (Given - Provider: Emma Garcia RN)1206 (Given - Provider: Emma Garcia, RN)1609 (Given - Provider: Emma Garcia, RN)1847 (Given - Provider: Emma Garcia RN)2042 [...] Routine levothyroxine (Synthroid) tablet 175 mcg 0805 (MAR Hol d - Provider: Admin Adt - Reason: Transfer to a Procedural area)0900 (Not Given - Provider: Emma Garcia RN - Reason: Transfer to a Procedural area)1230 (MAR Unhold - Provider: Admin Adt) 0834 (Given - Provider: Emma Garcia RN) 0829 (Given - Provider: Lilliana Esteban VAMSI) 175 mcg, Oral, DAILY, First dose [...] mg 0556 (G iven - Provider: Maryjane Joyce RN)0805 (SEP Hold - Provider: Admin Adt - Reason: Transfer to a Procedural area)1200 (Not Given - Provider: Emma Garcia RN - Reason: Transfer to a Procedural area)1230 (SEP Unhold - Provider: Admin Adt) 0504 (Given - Provider: Barbara Boogie, VAMSI)1217 (Given - Provider: Emma Garcia RN)1717 (Given - Provider: Emma Garcia RN) 0001 (Given - Provider: Derrick Galeas, VAMSI)0631 (Given - Provider: Derrick Galeas, VAMSI) 12.5 mg, Oral, EVERY 6 HOURS SCHEDULED, First dose on Wed12/08/21 at 1800, Until Discontinued, Routine 1744 (Given - Provider: Emma Garcia RN )2345 (Given - Provider: Barbara Boogie, VAMSI) [...] DO NOT CRUSH OR OPEN, Routine 1230 ([facility] Unhold - Provider: Admin Adt) polyethylene glycoL (Miralax) packet 17 g 0805 (SEP Ho ld - Provider: Admin Adt - Reason: Transfer to a Procedural area)0900 (Not Given - Provider: Emma Garcia RN - Reason: Transfer to a Procedural area)1230 ([facility] Unhold - Provider: Admin Adt) 0844 (Given [...] Sean ine 0.9) flush 5 mL 0805 ([facility] Hold - Provider: Admin Adt - Reason: Transfer to a Procedural area)0900 (Not Given - Provider: Emma Garcia RN - Reason: Transfer to a Procedural area)1230 ([facility] Unhold - Provider: Admin Adt)1746 (Given - Provider: Emma Garcia, VAMSI) 0900 (Given - Provider: Emma Garcia, VAMSI )204 (Given - Provider: Derrick Galeas RN) 0900 (Hold - Provider: Lilliana cerda RN - Reason: Loss of access) 5 mL, Intravenous, 2 TIMES DAILY, First dose on Wed12/08/21 at 2100, Until Discontinued, Routine 2033 (Given - Provider: Barbara Boogie RN) spironolactone (Aldactone) tablet 25 mg 0844 (Given - Provider: Emma Garcia RN) 0829 (Given - Provider: Lilliana friedman, RN) 25 mg, Oral, DAILY, First dose on Ivis at 0915, Until Discontinued, DO NOT SPLIT, CRUSH OR OPEN, Routine torsemide (Demadex) tablet 40 mg 0844 (Given - P rovider: Emma Garcia, RN) 0828 (Given - Provider: Lilliana Esteban, RN) 40 mg, Oral, DAILY, First dose on Ivis at 0930, Until Discontinued, Routine PRN Medication Order 12/10/2021 12/11/2021 12/12/2021 acetaminophen (Tylenol) tablet 650 mg 08 ([facility] Hold - Provider: Admin Adt - Reason: Transfer to a Procedural area)1230 ([facility] Unhold - Provider: Admin Adt) [...] , Routine bisacodyL (Dulcolax) suppository 10 mg 08 ([facility] Hold - Provider: Admin Adt - Reason: Transfer to a Procedural area)1230 ([facility] Unhold - Provider: Admin Adt) 10 mg, Rectal, DAILY PRN, Starting on e 12/09/21 at 1629, Until Wed12/12/21 at 1312, Constipation, Routine dextrose 10% infusion(Linked Group 2) 08 ([facility] Hold - Provider: Admin Adt - Reason: Transfer to a Procedural area)1230 ([facility] Unhold - Provider: Admin Adt) [...] Routine niCARdipine (Cardene) (100 mcg/mL) dilution (HOME 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) (CANCELED) 1030 (Given - Provider: Vitaliy Nobles MD) ONCE PRN, Starting on Wed12/10/21 at 103 0, Until Wed12/10/21 at 1230, Intra- Operative (Intra-Procedure), Routine nitroGLYcerin (Nitrostat) disintegrating tablet 0.4 mg 804 ([facility] Hold - Provider: Admin Adt - Reason: Transfer to a Procedural area)123 ([facility] Unhold - Provider: Admin Adt) 0.4 mg, [...] 8.6-50 mg per tablet 1 tab let 804 ([facility] Hold - Provider: Admin Adt - Reason: Transfer to a Procedural area)123 ([facility] Unhold - Provider: Admin Adt) 1 tablet, Oral, 2 TIMES DAILY PRN, Start ing on Wed12/09/21 at 1628, Until Wed12/12/21 at 1312, Constipation, Routine sodium chloride 0.9 % (flush) (BD PosiFlush Normal Sean ine 0.9) flush 5-20 mL 804 ([facility] Hold - Provider: Admin Adt - Reason: Transfer to a Procedural area)123 ([facility] Unhold - Provider: Admin Adt) 5-20 mL, [...] episode. & nbsp; For persistent hypoglycemia, con casing mixer longer-acting treatment for the duration of the [...]
Routine documented in this encounter Care Teams Ambulance Assistant Relationship Specialty Start Date End Date Lovely Vicente MD PCP - General 04/16/[address] [place] [address] [address] [place] [address] documented as of this encounter
--- OUTSIDE RECORDS SUMMARY | 2022-02-20 01:40 | XMS_ITS | Encounter Summary ---
:1945 Author Organization [facility] [place] [address] Care Team Providers Name Role Phone Lovely Vicente MD Primary Care Provider Reason for Referral Consultation (Routine) - Closed Specialty Diagnoses / Referred By Contact Referred To Contact Procedures Cardiac Rehabilitation Diagnoses Acute HFrEF (heart failure with reduced ejection fraction) Janneth Padilla, Cardiac Rehab, [address] [place] CARDIOLOGY DEPT. [address] [place] [address] Referral ID Status Reason Start Date Expiration Date Visits V isits Requested Authorized [id number] Closed Consult, 12/12/2021 12/12/2022 36 36 Test & Treat Reason for Visit Auth/Cert Specialty Diagnoses / Procedures Referred By Contact Refer red To Contact Diagnoses NSTEMI Procedures emerg ipi Referral ID Status Reason Start Date Expiration Date Visits Requ ested Visits Authorized [id number] 1 1 Encounter Details Date Type Department Care Team Description 12/08/2021 - Hospital Encounter Intermediate Cardiac Iker Cuevas MD [facility] [place] [address] Non-ST elevation myocardial infarction ( NSTEMI); 12/12/2021 Care Unit Ifeanyi Rene MD [facility] [place] [address] ST elevation myocardial infarction (STEM I), unspecified artery; [facility] Acute HFr EF (heart failure with reduced ejection fraction) [place] [address] Social History Tobacco Use Types Packs/Day Years [...] Don Fatima Patient Age: 76 y.o. Language: Czech Race: White Ethnicity: Not nor Admit date: [...] Peter PA-C Kelly LaFlamme PA-C Cardiovascular Medicine [phone] Discharge Diagnoses (Hospital Problems) and Secondary Diagnoses (Chronic Problems): Active Hospital Problems Diagnosis ??? Admitted with CHF. CABG 2016. Found to have sequential vein graft down. OSAMNI ok. PCI of LM/ostial Cx. Will stage [...] 3.75 guiding catheter and a 3.5 Fr [place] 20 Mhz using Manual pullback. Imaging was successful. Image quality was good. The ostial LCX showed moderate diffuse atherosclerotic plaque with scattered three quadrant calcification. Measurements were performed after pre-dilation. Post Intervention: The stent was well expanded and apposed. Intravascular Ultrasound was performed in the distal LM using a 7 Fr EBU 3.75 guiding catheter and a 3.5 Fr [place] 20 Mhz using Manual pullback. Imaging was [...] may require modification of this regimen. Consult [facility] Interventional Cardiology [...] vascular congestion and cardiomegaly. ?? TTE from [facility] 12/08/21 ? Prior Cardiac Studies: TTE 07/28/2019 [...] prior thyroidectomy in 2012 who presented to [facility] with 1 week progressing breathlessness with patient [...] 03/2021 with Liz Poole PA-C. ?? At [facility], respiratory distress with hypoxia 86% on room [...] mg PO daily in place of lasix. [place] is new for him and he will [...] to be ~$24/mo; affordable per patient. Post [facility] he was started on Eliquis. He [...] appointments: During 8am-5pm Wednesday through Wednesday call [phone] to speak with a nurse in the cardiology clinic All other times call [phone] and ask to speak to the ferry hand area development consultant. Return to work: One week Driving: No driving for 48 hours after catheterization. Follow up Appointments: PCP Lovely Vicente MD [phone] to see patient at the end of December for annual check up. Patient to see Dr. Lorenzana at 1120 am at December 19 for a post hospital check up. Wheelage Clerk Dr. De Oliveira to see you in [facility]. Left a message for office to set a date and time. Please call [phone] Nobles to see the patient for a same day cath in 2-3 weeks from now. Office to call with a date and time. For questions please call [phone] Home oxygen therapy: N/A Arrangements for VNA/home care: none Future Appointments and Orders Future Orders Complete By Expires Basic Metabolic Panel (non-fasting) [LAB15 Custom] 12/19/2021 (Approximate) 12/12/2022 Process Instructions: INCLUDES: Calcium, BUN, Creat, GFR, Glucose, Lytes Scheduling Instructions: Comments: Questions: Referral to Cardiac Rehab [NRW516 Custom] As directed Process Instructions: If no [...] appointments: During 8am-5pm Wednesday through Wednesday call [phone] to speak with a nurse in the cardiology clinic All other times call [phone] and ask to speak to the ferry hand area development consultant. Return to work: One week Driving: No driving for 48 hours after catheterization. Follow up Appointments: PCP Lovely Vicente MD [phone] to see patient at the end of December for annual check up. Patient to see Dr. Lorenzana at 1120 am at December 19 for a post hospital check up. Wheelage Clerk Dr. De Oliveira to see you in [facility]. Left a message for office to set a date and time. Please call [phone] Nobles to see the patient for a same day cath in 2-3 weeks from now. Office to call with a date and time. 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 Tolerated procedure well. Home today at 11 [...] normal. Lab Comments: Recent Labs 12/12/21 0451 12/11/21 0428 12/10/21 042 WBC 7.9 8.8 9.4 HGB 12.1* 11.9* 11.1* HCT 36.7* 36.9* 34.0* PLATELET 231 211 183 Recent Labs 12/12/21450 INR 1.3 Recent Labs 12/12/2145019/22 0428 12/10/21 1946 12/10/211811 NA 143 142 -- 138 K 3.9 4.0 4.2 Not Perf CL 105 104 -- 100 CO2 21* 23 -- 22 BUN 52* 49* -- 50* CREATININE 1.72* 1.43 -- 1.39 Recent Labs 12/09/21 0618 AST 25 ALT 15 ALKPHOS 75 BILITOT 1.1 BILIDIR 0.2 Recent Labs 12/12/21 0451 12/11/21 0428 12/10/21 18112/10/21 0425 CALCIUM 8.9 8.6 8.3* 8.0* MAGNESIUM [...] pulmonary vascular congestion and cardiomegaly. 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 Tolerated procedure well. Review of Systems: Review [...] Labs 12/11/21427 INR 1.6 Recent Labs 12/11/2142712/10/21 19412/10/21181112/10/21424 NA 142 -- 138 140 K 4.0 4.2 Not Perf 3.9 CL 104 -- 100 104 CO2 23 -- 22 23 BUN 49* -- 50* 54* CREATININE 1.43 -- 1.39 1.52* Recent Labs 12/09/21617 AST 25 ALT 15 ALKPHOS 75 BILITOT 1.1 BILIDIR 0.2 Recent Labs 12/11/2142712/10/21181112/10/2142412/09/21 1930 12/09/21617 CALCIUM 8.6 8.3* 8.0* < > 8.8 MAGNESIUM 1.04 -- 0.95 -- 0.81 < > = values in this interval not displayed. Recent Labs 12/09/2161712/08/21220212/08/21 180 TROPONINT 1.13* 0.92* 0.89* Pertinent Radiographic/Diagnostic Results: R/[facility] 12/10/21 Hemodynamics: Right Heart Pressures Resting: [...] pulmonary vascular congestion and cardiomegaly. TTE from [facility] 12/08/21 Prior Cardiac Studies: TTE 07/28/2019 SUMMARY: [...] 5 Mg HAYS/T/// and 7.5 mg M/. [place] check DOAC, consider transition to DOAC if [...] and answered his questions. Iker Cuevas MD [facility] Total time spent on review of records prior to visit, face to face time with patient during visit, documentation, and coordination of care with other clinicians: 25 minutes. . Iker Cuevas MD - 12/10/2021 12:30 PM EDT Images from the original note were not included. 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 Tolerated procedure well. Review of Systems: Review [...] ??? heparin (porcine) infusion 1,600 Units/hr (12/09/21 5847) PRN Meds:ipratropium-albuteroL, senna-docusate, bisacodyL, sodium chloride 0.9 [...] 0425 INR 1.7 Recent Labs 12/10/21 0425 12/09/210 12/09/21 0618 NA 140 138 139 K [...] TROPONINT 1.13* 0.92* 0.89* Pertinent Radiographic/Diagnostic Results: R/[facility] 12/10/21 Hemodynamics: Right Heart Pressures Resting: [...] pulmonary vascular congestion and cardiomegaly. TTE from [facility] 12/08/21 Prior Cardiac Studies: TTE 07/28/2019 SUMMARY: [...] Discussed with MD Migdalia Peter PA-C Pager #[phone] 12/10/2021 Cardiology Attending Note I have seen [...] updated and given pictures. Iker Cuevas MD [facility] Total time spent on review of records prior to visit, face to face time with patient during visit, documentation, and coordination of care with other clinicians: 35 minutes. Iker Cuevas MD - 12/09/2021 7:28 AM EDT Images from the original note were not included. Inpatient Cardiology Progress Note Patient Name: Don Fatima Service: MANAGER MUSIC / PA Responsible Attending: Iker Cuevas MD [...] Affect: Mood normal. Lab Comments: Recent Labs 12/09/2118 12/08/21 1802 WBC 17.2* 15.6* HGB 12.6* 11.8* HCT 38.9* 35.8* PLATELET 193 178 No results for input(s): INR in the last 168 hours. Recent Labs 12/09/2118 12/08/21 1802 NA 139 138 K 4.2 4.5 CL 101 102 CO2 21* 20* BUN 49* 41* CREATININE 1.33 1.44 Recent Labs 12/09/21617 AST 25 ALT 15 ALKPHOS 75 BILITOT 1.1 BILIDIR 0.2 Recent Labs 12/09/2118 12/08/21 1802 CALCIUM 8.8 8.6 MAGNESIUM 0.81 0.86 Recent Labs 12/09/21 0618 12/08/21 2203 12/08/21 1802 TROPONINT 1.13* 0.92* 0.89* Pertinent Radiographic/Diagnostic Results: CXR 12/09/21 IMPRESSION * Increased bilateral multifocal airspace opacities, more prominent and confluent on the right, may reflect asymmetric edema or multifocal infection. * Unchanged pulmonary vascular congestion and cardiomegaly. TTE from [facility] 12/08/21 Prior Cardiac Studies: TTE 07/28/2019 SUMMARY: [...] setting of ADHF # ASCVD, s/p CABG 2017 Telemetry Troponin trend: 0.89- 0.92- 1.13 Continue [...] Discussed with MD Migdalia Peter PA-C Pager #[phone] 12/09/2021 Cardiology Attending Note I have seen and examined the patient. I agree with the findings above. Developed CHF early this am despite getting more iv lasix last evening. Feeling better now. INR > 2. Lungs still wet at base. Echo at [facility] showed EF 35% with mild mod MR slightly lower than last value here. -vit K 2.5 orally to facilitate correction of INR- this will take 12-24 hours to take effect -furosemide 80 mg iv now -postpone right and left heart cath until tomorrow given INR and ADHF -increase statin to achieve LDL < 70 -CPAP tonight Iker Cuevas MD [facility] Total time spent on review of records [...] prior thyroidectomy in 2012 who presented to [facility] with 1 week progressing breathlessness with patient [...] visit 03/2021 with Liz Poole PA-C. At [facility], respiratory distress with hypoxia 86% on room [...] SETUP performed by Manny Mcknight MD at [facility] OR ??? PRO AMPUTATION FOOT, TRANSMETATARSAL Right 08/09/2017 AMPUTATION, TRANSMETATARSAL (WRVU 12.71) performed by Yonathan Smith MD at [facility] OR ??? PRO CABG, ARTERIAL, SINGLE N/A 07/07/2017 @CABG, USING ARTERIAL GRAFT;SINGLE ARTERIAL GRAFT (WRVU 33.75) performed by Yuan Retana MD at [facility] OR ??? PRO CABG, ARTERY-VEIN, TWO N/A 07/07/2017 @CABG, TWO VENOUS GRAFTS & ARTERIAL GRAFT (WRVU 7.93) performed by Yuan Retana MD at [facility] OR ??? PRO COLONOSCOPY, REMV LESN, SNARE 01/16/2014 COLONOSCOPY, POLYPECTOMY, REMOVAL LESION BY SNARE performed by Nohemi Jaimes MD at [facility] ENDOSCOPY ??? PRO DRESSING CHANGE UNDER ANESTHESIA Right 08/11/2017 (MSURG) DRESSING CHANGE (FOR OTHER THAN IVAN) UNDER ANES. (WRVU 0.86) performed by Lamar Smith MD at [facility] OR ??? PRO ENDOSCOPY W/VIDEO-ASST VEIN HARVEST, CABG Right 07/07/2017 ENDOSCOPIC HARVEST VEIN(S) FOR CABG (WRVU 0.31) performed by Yuan Retana MD at [facility] OR ??? PRO THYROIDECTOMY 03/28/2013 THYROIDECTOMY, TOTAL OR COMPLETE performed by Manny Mcknight MD at [facility] MAIN OR Significant Family History: Family [...] (H) 65 - 199 mg/dL Labs at [facility] 12/08/2021-troponin I 8004 (UN L <60), 12/07- [...] Monitor for ADRs. Trend troponins. Admission EKG. [facility] 12/09; consented. TTE. Telemetry monitoring, daily weights, I/O routine labs. Fasting lipid panel and TSH in a.m. #HFrEF Continue metoprolol and losartan. Lisinopril caused cough. Furosemide 40mg IV x1. He states she usually wakes 200-210 pounds. TTE #Paroxysmal atrial fibrillation Currently in sinus rhythm. Holding warfarin which is followed by his PCP. Home dosing 5 Mg HAYS/T/W//SA and 7.5 mg M/TH. Heparin infusion as above for ACS. Continue [...] code #Diet-carb control; n.p.o. after midnight for [facility] #DVT prophy- heparin infusion #GI prophy- PPI Discussed with MD Morgan Peter PA-C APP2 pager [phone] 12/08/2021 Cardiology Attending Note I have seen [...] is type 1 due to graft or [place] coronary stenosis vs acute injury from CHF. 3. PAF: currrently in NSR. Have replaced warfarin with heparin 4. PAD: stable 5. DM: stable 6. CKD: will monitor and minimize contrast. Pt very appreciative of Dr. Yuan Retana's care in 2018. Will let him know patient is here. Iker Cuevas MD [facility] documented in this encounter Miscellaneous Notes Care Management Discharge - Fvaian Norman, RN - 12/12/2021 9:56 AM EDTSummary: No [...] Type: *No Product type* / Secondary Insurance: [employer] Prescription Coverage: Yes This plan was formulated [...] cath without complications. Migdalia Parker PA-C Pager #[phone] 12/10/2021 Initial Assessments - Nick Georges RN [...] COVID test: Lab Results Component Value Date [id number] Not Detected 12/08/2021 Past medical History: Past [...] spouse would be surrogate decision maker per [place] surrogate decision making law. (Only good for 180 days) Any patient receiving care at [facility] must abide by [place] law. The hierarchy for surrogate decision making [...] (i) The agent with financial power of state's attorney or a conservator appointed in accordance [...] standard, cane - straight Home Address: [address] [place] [address] [place] [address] Social & Family Supports: All names listed below confirmed with patient as current and correct Extended Emergency Contact Information Primary Emergency Contact: Kisha Fatima Address: [address] [place] [address] [place] [address] [facility] Mobile Relation: Spouse Secondary Emergency Contact: Elba Swenson Address: [address] [place] Relation: Child Current Care Provided [...] Type: *No Product type* / Secondary Insurance: BLUE [employer]UE [facility] Prescription Coverage: Yes Preferred Pharmacy: [facility] Home Delivery [facility] [address] [id number] - [place], [place] - [address] [place] [id number] Status: Patient is a : unable to assess Primary Care Provider: Lovely Vicente MD [phone] Patient/Caregiver Goals of Treatment: Get out of here Potential Needs for Transition of Care: none Agency Referrals: none patient has used [facility] in the past Transportation: no concerns Transportation Anticipated: family or friend will provide Concerns to be Addressed: patient refuses services, discharge planning Assessment: Patient is admitted to [facility] Service pager [phone] for 76 y.o.??male??with h/o??CAD s/p 3vCABG (THOMPSON-LAD, [...] status on current unit. Nick Georges RN retail marketing coordinator, Office of Care Management Pager: [phone] Brief Op Note - Vitaliy Nobles MD - 12/10/2021 8:31 AM EDT Images from the original note were not included. [facility] [place] [address] CORONARY ANGIOGRAM AND PERCUTANEOUS CORONARY INTERVENTION REPORT Patient: Don Fatima : 1945 MR number: [id number] Date of Service: 12/10/2021 Emergency Doctor: Vitaliy Nobles MD Fellow: [place]o [place] MD [...] and to provide a review of terminal gauger supervisor diabetes care. Diabetes History: Don Fatima has had diabetes for 10 years. He has been on insulin for the last several years andis managed by his PCP. Lives in [place], [place] with his . States that he [...] Hold] heparin (porcine) infusion 1,600 Units/hr (12/09/21 6617) PRN: [MAR Hold] ipratropium-albuteroL, [MAR Hold] senna-docusate, [SEP Hold] bisacodyL, [MAR Hold] [...] 5 gm carb ratio for each meal) group home diabetes care: Medications - Outpatient treatment regimen recommendations pending based on the hospital course. Monitoring - continue BG tid ac & hs Diet - low fat/low carb diet Exercise - weight-bearing exercise 30 min/day, as tolerated Thank you for allowing us to provide care for your patient Desirae Johnie QUINONES Endocrinology Pager [phone] 70 minutes of this 80 minute visit [...] to remain on Med/Surg floor, please page [phone] for any further questions or concerns. LANDON [...] for further details. STEPHANIE Rebolledo 12/08/2021 Pager [phone] documented in this encounter Plan of Treatment Upcoming Encounters Date Type Specialty Care Team Description 03/26/2022 Office Visit Cardiology Vitaliy Nobles MD [facility] DR [facility] [place] [address] (Wo rk) Scheduled Referrals Name Type [...] Glucose 215 (H) 65 - 199 [facility] mg/dL [facility] Comment: Supplemental ranges: <140 mg/dL before meals <180 mg/dL all other times of the day Specimen Anatomical Collection Method Collection Time Receive d Time (Source) Location / / Volume Laterality Blood 12/12/2021 7:42 AM 7:42 EDT AM EDT Ifeanyi Truong MD POINT OF CARE TEST ORDERABLE S Performing Organization Address City/State/[place] [address] (ABNORMAL) Differential, Automated (12/12/2021 4:51 AM EDT) athologist Signature Neutrophils % 75.4 % [facility] LABORATORY Neutr Abs (ANC) 5.95 1.70 - [facility] 6.10 [facility] x10(3)[facility] LABORATORY Lymphocytes % 12.2 % [facility] LABOR[facility]ORY Lymphocytes Abs 1.0 0.9 - 3.2 [facility] x10(3)/[facility] LABORATORY Monocytes % 9.5 % [facility] LABORATORY Monocyte Abs 0.8 0.3 - 0.9 [facility] x10(3)[facility] LABORATORY Eosinophils % 1.8 % [facility] LABORATORY Eosinophils Abs 0.1 0.0 - 0.4 [facility] x10(3)/[facility] LABORATORY Basophils % 0.5 % [facility] LABOR[facility]ORY Basophils Abs 0.0 0.0 - 0.1 [facility] x10(3)/[facility] LABORATORY Immature Gran % 0.60 % WHITE [...] Gran Abs 0.05 (H) 0.00 - 0.04 x10(3)/[facility] LABORATORY Specimen Anatomical Collection Method Collection Time Receive d Time (Source) Location / / Volume Laterality Blood 12/12/2021 4:51 AM 5:06 EDT AM EDT Resulting Agency Comment Spec In Lab Bijan Sun MD HEMATOLOGY ORDERABLES Performing Organization Address City/State/[place] [address] (ABNORMAL) Hemogram (12/12/2021 4:51 AM EDT) Analysis Performed At Patho logist Time Signature WBC 7.9 4.0 - 9.5 [facility] x10(3)/[facility] LABORATORY RBC 4.19 (L) 4.58 - [facility] 5.54 [facility] x10(6)/[facility] LABORATORY Hemoglobin 12.1 (L) 13.7 - [facility] 16.5 g/dL [facility] Hematocrit 36.7 (L) 40.5 - [facility] 48.5 % [facility] MCV 87.6 82.9 - [facility] 93.1 [facility] LABORATORY MCH 28.9 27.5 - [facility] SU 32.1 pg [facility] MCHC 33.0 32.0 - [facility] 35.7 g/dL [facility] Platelets 231 145 - 357 [facility] x10(3)/[facility] LABORATORY RDWSD 47.2 (H) 36.0 - [facility] [employer] 45.0 [facility] LABORATORY RDWCV 14.6 (H) 11.4 - [facility] SU 13.8 % [facility] MPV 9.5 7.6 - 12.9 [facility] LABORATORY nRBC % Auto 0.0 % [facility] LABORATORY nRBC Abs Auto 0.000 0.000 - [facility] SU 0.000 [facility] x10(3)/[facility] LABORATORY Specimen Anatomical Collection Method Collection Time Receive d Time (Source) Location / / Volume Laterality Blood 12/12/2021 4:51 AM 2 5:06 EDT AM EDT Resulting Agency Comment Spec In Lab Bijan Sun MD HEMATOLOGY ORDERABLES Performing Organization Address City/[facility]/[place] [address] (ABNORMAL) Prothrombin Time (12/12/2021 4:51 AM EDT) P athologist Signature PT 14.9 (H) 9.4 - 12.5 [facility] LABORATORY INR 1.3 [facility] LABORATORY [...] Cuevas MD HEMATOLOGY ORDERABLES Performing Organization Address City/[facility]/[place] [address] (ABNORMAL) BMP w/fasting Glucose (12/12/2021 4:51 AM EDT) P athologist Signature Glucose 152 (H) 65 - 99 [facility] Fasting mg/dL [facility] Comment: ?Fasting* Glucose Interpretive C [...] of Diabetes Mellitus, Position Statement from the [place] [employer]. ??Diabete s Care, Volume 33, Supplement 1, Jul 2009 BUN 52 (H) 10 - 20 mg/dL [facility] Creatinine 1.72 (H) 0.80 - 1.50 mg/dL [facility] Sodium 143 135 - 145 mmol/L [facility] Potassium 3.9 3.5 - 5.0 mmol/L [facility] Comment: Please note: ??Patients with WBC >100,00 0 may have falsely elevated Potassium levels. ??For accurate Potassium quantif ication in these patients send serum separator tube (gold top) for subsequent determinations. ??Contact the Clinical Chemistry Laboratory if there are any qu estions. Chloride 105 98 - 107 mmol/L [facility] CO2 21 (L) 22 - 31 mmol/L [facility] Anion Gap 17 (H) 5 - 15 mmol/L [facility] Calcium 8.9 8.5 - 10.5 mg/dL [facility] Estimated GFR 38 (L) >=60 mL/min/1.73 m?? [facility] [...] Address City/State/[place] [address] Magnesium (12/12/2021 4:51 AM EDT) athologist Signature Magnesium 1.02 0.69 - 1.07 [facility] mmol/L [facility] Specimen Anatomical Collection Method Collection Time Receive d Time (Source) Location / / Volume Laterality Blood 12/12/2021 4:51 AM 2 5:06 EDT AM EDT Resulting Agency Comment Spec In Lab Iker Cuevas MD CHEMISTRY ORDERABLES Performing Organization Address City/[facility]/ZIP Code Phon e Number [address] POCT Glucose (12/12/2021 3:43 AM EDT) athologist Signature POC Glucose 138 65 - 199 [facility] mg/dL [facility] Comment: Supplemental ranges: <140 mg/dL before meals <180 mg/dL all other times of the day Specimen Anatomical Collection Method Collection Time Receive d Time (Source) Location / / Volume Laterality Blood 12/12/2021 3:43 AM 2 3:43 EDT AM EDT Iker Cuevas MD POINT OF CARE TEST ORDERABLE S Performing Organization Address City/[facility]/ZIP Code Phon e Number [address] POCT Glucose (12/11/2021 11:44 PM EDT) athologist Signature POC Glucose 124 65 - 199 [place] mg/dL [facility] LABORATORY Comment: Supplemental ranges: <140 mg/dL before meals <180 mg/dL all other times of the day Specimen Anatomical Collection Method Collection Time Receive d Time (Source) Location / / Volume Laterality Blood 12/11/2021 11:44 12/11/2021 PM EDT 11:44 PM EDT Iker Cuevas MD POINT OF CARE TEST ORDERABLE S Performing Organization Address City/State/ZIP Code Ph[place] [address] (ABNORMAL) POCT Glucose (12/11/2021 8:12 PM EDT) athologist Signature POC Glucose 200 (H) 65 - 199 [facility] Comment: Supplemental ranges: <140 mg/dL before meals <180 mg/dL all other times of the day Specimen Anatomical Collection Method Collection Time Receive d Time (Source) Location / / Volume Laterality Blood 12/11/2021 8:12 PM 2 8:12 EDT PM EDT Iker Cuevas MD POINT OF CARE TEST ORDERABLE S Performing Organization Address City/State/[place] [address] (ABNORMAL) POCT Glucose (12/11/2021 6:50 PM EDT) athologist Signature POC Glucose 245 (H) 65 - 199 [facility] mg/dL [facility] Comment: Supplemental ranges: <140 mg/dL before meals <180 mg/dL all other times of the day Specimen Anatomical Collection Method Collection Time Receive d Time (Source) Location / / Volume Laterality Blood 12/11/2021 6:50 PM 2 6:50 EDT PM EDT Iker Cuevas MD POINT OF CARE TEST ORDERABLE S Performing Organization Address City/State/[place] [address] (ABNORMAL) POCT Glucose (12/11/2021 4:00 PM EDT) athologist Signature POC Glucose 383 (H) 65 - 199 [facility] mg/dL [facility] LAB[facility] Comment: Supplemental ranges: <140 mg/dL before meals <180 mg/dL all other times of the day Specimen Anatomical Collection Method Collection Time Receive d Time (Source) Location / / Volume Laterality Blood 12/11/2021 4:00 PM 2 4:00 EDT PM EDT Iker Cueavs MD POINT OF CARE TEST ORDERABLE S Performing Organization Address City/State/[place] [address] [facility] [address] Drive (ABNORMAL) POCT Glucose (12/11/2021 12:01 PM EDT) P athologist Signature POC Glucose 342 (H) 65 - 199 [place] mg/dL [facility] LABORATORY Comment: Supplemental ranges: <140 mg/dL before meals <180 mg/dL all other times of the day Specimen Anatomical Collection Method Collection Time Receive d Time (Source) Location / / Volume Laterality Blood 12/11/2021 12:01 12/11/2021 PM EDT 12:01 PM EDT Iker Cuevas MD POINT OF CARE TEST ORDERABLE S Performing Organization Address City/State/ZIP Code Phon e Number [place] [phone] COVID-19 PCR (12/11/2021 10:13 AM EDT) Patholo gist Method Time Signature SARS-CoV-2 Not Detected Not Detected [facility] RNA [facility] LABORATORY Comment: This result should [...] diagnosis of COVID-19 is performed using the [employer] m RONNA S-CoV-2 Assay as authorized by the FDA Emergency Use Authorization (EUA). This EUA assay is intended for In-vitro Diagnostic (IVD) use with respiratory sp ecimens such as nasopharyngeal swabs collected from individuals during the ac terrence phase of infection. This assay is performed based on the instructions for use provided by [employer] and additional guidance provided by CDC and FDA. Testing is performed in the Clinical Genomics and Advanced Technolog y Laboratory within the Department of Pathology and Laboratory Medicine at [facility], certified under the Clinical Laboratory Improvement [...] clinical management guidance information are available at [facility] CDC Coronavirus Disease 2019 (COVID-19) webpage under Information fo r Healthcare Professionals (https://www.cdc.gov/coronavirus/2019-nc ov/hcp/index.html) Additional information about this and ot her EUA tests can be found in provider and patient fact sheets at the following FDA website: https://www.fda.gov/medical-devices/efmtybzhorn-lrvaepg-3967-tlaer-19-mvikicluk- cgt-hxbzgaaxbdmsmw-mzuggdh-devices/hyssm-bedxbjkcrwm-arng SARS-Cov-2 RNA Source [employer]GER [employer] Swab [facility] LABORATORY Specimen (Source) Anatomical Collection Method Collection Time Re ceived Time Location / / Volume Laterality Nasopharyngeal Swab 12/11/2021 10:13 0503/2022 AM EDT 11:16 AM EDT Comment: Symptoms->Surveillance Resulting Agency Comment Spec In Lab Iker Cuevas MD MICROBIOLOGY - GENERAL ORDER [place] Performing Organization Address City/State/ZIP Code Phon e Number [place] [phone]OS[address] POCT Glucose (12/11/2021 7:34 AM EDT) athologist Signature POC Glucose 198 65 - 199 [facility] mg[facility]dL [facility] LAB[facility] Comment: Supplemental ranges: <140 mg/dL before meals <180 mg/dL all other times of the day Specimen Anatomical Collection Method Collection Time Receive d Time (Source) Location / / Volume Laterality Blood 12/11/2021 7:34 AM 2 7:34 EDT AM EDT Iker Cuevas MD POINT OF CARE TEST ORDERABLE S Performing Organization Address City/State/ZIP Code Phon e Number [address] (ABNORMAL) POCT Glucose (12/11/2021 5:07 AM EDT) athologist Signature POC Glucose 208 (H) 65 - 199 [facility] mg/dL [facility] LABORATORY Comment: Supplemental ranges: <140 mg/dL before meals <180 mg/dL all other times of the day Specimen Anatomical Collection Method Collection Time Receive d Time (Source) Location / / Volume Laterality Blood 12/11/2021 5:07 AM 2 5:07 EDT AM EDT Iker Cuevas MD POINT OF CARE TEST ORDERABLE S Performing Organization Address City/State/ZIP Code Phon e Number [address] (ABNORMAL) Differential, Automated (12/11/2021 4:28 AM EDT) [facility] gist Method Time Signature Neutrophils % 79.6 % [facility] LABORATORY Neutr Abs (ANC) 7.01 (H) 1.70 - [facility] 6.10 [facility] x10(3)/[facility] L LABORATORY Lymphocytes % 9.1 % [facility] LABORATORY Lymphocytes Abs 0.8 (L) 0.9 - 3.2 [facility] x10(3)/[facility] LABORATORY Monocytes % 9.2 % [facility] LABORATORY Monocyte Abs 0.8 0.3 - 0.9 [facility] x10(3)/[facility] LABORATORY Eosinophils % 1.3 % [facility] LABORATORY Eosinophils Abs 0.1 0.0 - 0.4 [facility] x10(3)/[facility] LABORATORY Basophils % 0.5 % [facility] LABORATORY Basophils Abs 0.0 0.0 - 0.1 [facility] x10(3)/[facility] LABORATORY Immature Gran % 0.30 % WHITE [...] Melisa Gran Abs 0.03 0.00 - 0.04 x10(3)/[facility] MAR Y [facility] LABORATORY Specimen Anatomical Collection Method Collection Time Receive d Time (Source) Location / / Volume Laterality Blood 12/11/2021 4:28 AM 4:37 EDT AM EDT Resulting Agency Comment Spec In Lab Bijan Sun MD HEMATOLOGY ORDERABLES Performing Organization Address City/State/[place] [address] (ABNORMAL) Hemogram (12/11/2021 4:28 AM EDT) Analysis Performed At Patho logist Time Signature WBC 8.8 4.0 - 9.5 [facility] x10(3)/[facility] LABORATORY RBC 4.15 (L) 4.58 - [facility] 5.54 [facility] x10(6)/[facility] LABORATORY Hemoglobin 11.9 (L) 13.7 - [facility] 16.5 g/dL [facility] LABORATORY Hematocrit 36.9 (L) 40.5 - [facility] 48.5 % [facility] LABORAT[facility] MCV 88.9 82.9 - [facility] 93.1 fL [facility] LABORATORY MCH 28.7 27.5 - [facility] 32.1 pg [facility] LAB[facility] MCHC 32.2 32.0 - [facility] 35.7 g/dL [facility] LABORATORY Platelets 211 145 - 357 [facility] x10(3)/[facility] LABORATORY RDWSD 48.3 (H) 36.0 - [facility] 45.0 [facility] LABORATORY RDWCV 14.8 (H) 11.4 - [facility] 13.8 % [facility] LABORATORY MPV 9.6 7.6 - 12.9 [facility] LABORATORY nRBC % Auto 0.0 % [facility] LABORATORY nRBC Abs Auto 0.000 0.000 - [facility] 0.000 [facility] x10(3)/[facility] LABORATORY Specimen Anatomical Collection Method Collection Time Receive d Time (Source) Location / / Volume Laterality Blood 12/11/2021 4:28 AM 2 4:37 EDT AM EDT Resulting Agency Comment Spec In Lab Bijan Sun MD HEMATOLOGY ORDERABLES Performing Organization Address City/[facility]/[place] [address] (ABNORMAL) Prothrombin Time (12/11/2021 4:28 AM EDT) P athologist Signature PT 17.7 (H) 9.4 - 12.5 [facility] LABORATORY INR 1.6 [facility] LABORATORY [...] Cuevas MD HEMATOLOGY ORDERABLES Performing Organization Address City/[facility]/[place] [address] (ABNORMAL) BMP w/fasting Glucose (12/11/2021 4:28 AM EDT) athologist Signature Glucose 207 (H) 65 - 99 [facility] Fasting mg/dL [facility] LABORATORY Comment: ?Fasting* Glucose Interpretive C [...] of Diabetes Mellitus, Position Statement from the [place] [employer]. ??Diabete s Care, Volume 33, Supplement 1, Jul 2009 BUN 49 (H) 10 - 20 mg/dL [facility] LABORATORY Creatinine 1.43 0.80 - 1.50 mg/dL [facility] LABORATORY Sodium 142 135 - 145 mmol/L [facility] LABORATORY Potassium 4.0 3.5 - 5.0 mmol/L [facility] [...] LABORATORY Calcium 8.6 8.5 - 10.5 mg/dL [facility] LABORATORY Estimated GFR 48 (L) >=60 mL/min/1.73 m?? [place] Cuevas MD CHEMISTRY ORDERABLES Performing Organization Address City/[facility]/ZIP Code Phon e Number [address] Magnesium (12/11/2021 4:28 AM EDT) P athologist Signature Magnesium 1.04 0.69 - 1.07 [facility] mmol/L [facility] LABORATORY Specimen Anatomical Collection Method Collection Time Receive d Time (Source) Location / / Volume Laterality Blood 12/11/2021 4:28 AM 2 4:37 EDT AM EDT Resulting Agency Comment Spec In Lab Iker Cuevas MD CHEMISTRY ORDERABLES Performing Organization Address City/[facility]/[place] [address] POCT Glucose (12/11/2021 3:58 AM EDT) P athologist Signature POC Glucose 189 65 - 199 [facility] mg/dL [facility] LAB[facility]ORY Comment: Supplemental ranges: <140 mg/dL before meals <180 mg/dL all other times of the day Specimen Anatomical Collection Method Collection Time Receive d Time (Source) Location / / Volume Laterality Blood 12/11/2021 3:58 AM 2 3:58 EDT AM EDT Iker Cuevas MD POINT OF CARE TEST ORDERABLE S Performing Organization Address City/[facility]/[place] [address] (ABNORMAL) POCT Glucose (12/10/2021 11:45 PM EDT) athologist Signature POC Glucose 205 (H) 65 - 199 [facility] mg/dL [facility] LABORATORY Comment: Supplemental ranges: <140 mg/dL before meals <180 mg/dL all other times of the day Specimen Anatomical Collection Method Collection Time Receive d Time (Source) Location / / Volume Laterality Blood 12/10/2021 11:45 12/10/2021 PM EDT 11:45 PM EDT Iker Cuevas MD POINT OF CARE TEST ORDERABLE S Performing Organization Address City/State/ZIP Code Phon e Number [address] (ABNORMAL) POCT Glucose (12/10/2021 7:54 PM EDT) athologist Signature POC Glucose 225 (H) 65 - 199 [facility] mg/dL [facility] LABORATORY Comment: Supplemental ranges: <140 mg/dL before meals <180 mg/dL all other times of the day Specimen Anatomical Collection Method Collection Time Receive d Time (Source) Location / / Volume Laterality Blood 12/10/2021 7:54 PM 2 7:54 EDT PM EDT Iker Cuevas MD POINT OF CARE TEST ORDERABLE S Performing Organization Address City/State/[place] [address] Potassium (12/10/2021 7:46 PM EDT) athologist Signature Potassium 4.2 3.5 - 5.0 [facility] mmol/L [facility] LABORATORY Comment: Please note: ??Patients with [...] Organization Address City/State/[place] [address] (ABNORMAL) Basic Metabolic Panel (non-fasting) (12/10/2021 6:12 PM EDT) P athologist Signature Glucose Lvl 246 (H) 65 - 199 [facility] mg/dL [facility] LABORATORY Comment: Diabetes: >=200 mg/dL plus symp toms BUN 50 (H) 10 - 20 mg/dL [facility] LABORATORY Creatinine 1.39 0.80 - 1.50 mg/dL [facility] LABORATORY Sodium 138 135 - 145 mmol/L [facility] LABORATORY Potassium Not Perf 3.5 [...] [facility] CO2 22 22 - 31 mmol/L [facility] LABORATORY Anion Gap 16 (H) 5 - 15 mmol/L [facility] LABORATORY Calcium 8.3 (L) 8.5 - 10.5 mg/dL [facility] LABORATORY Estimated GFR 49 (L) >=60 mL/min/1.73 m?? [place] [...] Cuevas MD CHEMISTRY ORDERABLES Performing Organization Address City/[facility]/ZIP Code Phon e Number [address] POCT Glucose (12/10/2021 4:59 PM EDT) athologist Signature POC Glucose 158 65 - 199 [place] mg/dL [facility] LABORATORY Comment: Supplemental ranges: <140 mg/dL before meals <180 mg/dL all other times of the day Specimen Anatomical Collection Method Collection Time Receive d Time (Source) Location / / Volume Laterality Blood 12/10/2021 4:59 PM 2 4:59 EDT PM EDT Iker Cuevas MD POINT OF CARE TEST ORDERABLE S Performing Organization Address City/[facility]/ZIP Code Phon e Number [address] (ABNORMAL) POCT Glucose (12/10/2021 12:43 PM EDT) athologist Signature POC Glucose 241 (H) 65 - 199 [place] mg/dL [facility] LABORATORY Comment: Supplemental ranges: <140 mg/dL before meals <180 mg/dL all other times of the day Specimen Anatomical Collection Method Collection Time Receive d Time (Source) Location / / Volume Laterality Blood 12/10/2021 12:43 12/10/2021 PM EDT 12:43 PM EDT Iker Cuevas MD POINT OF CARE TEST ORDERABLE S Performing Organization Address City/[facility]/[place] [address] EKG 12 Lead (12/10/2021 11:17 AM EDT) Component Value Ref Range Test Analysis Performed Pathologis t Method Time At Signature Ventricular rate 62 BPM MUSE SYSTEM Atrial Rate 62 BPM MUSE SYSTEM P-R Interval 142 ms MUSE SYSTEM QRS Duration 100 ms MUSE SYSTEM Q-T Interval 434 ms MUSE SYSTEM QTC Calculated 440 ms MUSE SYSTEM (Bezet) Calculated P Ellis 34 degrees MUSE SYSTEM Calculated R Ellis -39 degrees MUSE SYSTEM Calculated T Ellis 92 degrees MUSE SYSTEM INTERPRETATION Normal sinus [...] SYSTEM - 12/10/2021 12:04 PM E DT ?[facility] ? Cardiac Cathete rization/Intervention Report ? Patient Name: Don Fatima. ? Procedure Date: 12/10/2021 ? A #: [id number] ? Primary Physician: Nobles, Vitaliy P ? Case #: [id number] ? File Name: [id number] ? Catheterization Order Number: [id number] ? [facility] ? Final Report [place], [place] ? Patient Name: ? Don E. Stewa rt ? ID#: ?[id number] ? : ?1945 ? Procedure Date: ? December 10, 2021 ? Case #: ? [id number] ? Room: ? 1 ? Case Physician: [...] has a history of atrial ?fibrillation/atrial flutter. Th e patient has a history of peripheral ?vascular disease. He also has a history of chronic obstructive pulmonary ?disease. Prior to the initiatio n of this procedure, the patient was ?designated as ASA Class III. Th e [facility] clinical frailty scale is 5: Mildly [...] procedure was Urgent. The indication for ?the cardiac cath lab radiology technologist visit is ACS great er than 24 [...] ?3.75 guiding catheter and a 3.5 Fr [facility] [place] 20 Mhz using Manual ?pullback. ??Imaging was [...] ?3.75 guiding catheter and a 3.5 Fr [facility] [place] 20 Mhz using Manual ?pullback. ??Imaging was [...] require ?modification of this regimen. C onsult [facility] Interventional Cardiology for ?questions. ?The 1 year bleeding risk as nusrat culated by the PRECISE DAPT score is High ?risk. ?High Bleeding Risk - Anticoagul ation and DAPT: ?- ??Assess ischemic and bleedin g risks using validated risk predictors ?(e.g. CHADS2-VASC, HAS-BLED, MS ECISE DAPT, DAPT Score) ?- ??Keep anticoagulant [...] of ?LVEF with RWMA and mod MR. He w as found to have severely elevated [...] ?ischemia as well. We will let oumar griffin recover from his ADHF and contrast ?load. [...] and bypass graft study. ? Vitaliy P Nobles, M.D. ? Electronically Signed by: Vitaliy P Nobles, M .D. ? Report Finalized: 12/10/2021 ??11:55 ? Report Last Ammended: 01/14/2022 ??12:09 ? Procedure Note Vitaliy Nobles MD - 01/14/2022 [facility] Cardiac Catheterization/Intervention Re port Patient Name: Don Fatima Procedure Date: 12/10/2021 A #: [id number] Primary Physician: Vitaliy Nobles Case #: [id number] File Name: [id number] Catheterization Order Number: [id number] [facility] Final Report [place], [place] Patient Name: Don Fatima ID#: [...] e was Urgent. The indication for the cardiac cath lab radiology technologist visit is ACS greater than 24 hrs [...] and a 3.5 Fr [facility] [place] 20 Mhz using Manual pullback. Imaging was [...] and a 3.5 Fr [facility] [place] 20 Mhz using Manual pullback. Imaging was [...] require modification of this regimen. Consult D [facility] Interventional Cardiology for questions. The [...] procedure. Dr. Vitaliy Nobles M.D. was present octavia g the moderate sedation intraservice time as documented by the sedation nurs e. Case time = 02:07. Dr. Vitaliy Nobles M.D. performed the cor onary angiography, left heart catheterization, right heart catheteriz ation, oximetry, ABG, stent insertion-coronary, IVUS # coronary and bypass graft study. Vitaliy Nobles M.D. Electronically Signed by: Yoselin Lopez Report Finalized: 12/10/2021 11:55 Report Last Ammended: 01/14/2022 12:09 Vitaliy Sandra Nobles MD CARDIAC CATH ORDERABLES Performing Organization Address City/State/ZIP Code Phon e Number CARDIOMAC SYSTEM (ABNORMAL) POCT Glucose (12/10/2021 10:30 AM EDT) athologist Signature POC Glucose 262 (H) 65 - 199 [facility] mg/dL [facility] LAB[facility] Comment: Supplemental ranges: <140 mg/dL before meals <180 mg/dL all other times of the day Specimen Anatomical Collection Method Collection Time Receive d Time (Source) Location / / Volume Laterality Blood 12/10/2021 10:30 12/10/2021 AM EDT 10:30 AM EDT Iker Cuevas MD POINT OF CARE TEST ORDERABLE S Performing Organization Address City/[facility]/ZIP [place] [address] (ABNORMAL) POCT Glucose (12/10/2021 9:48 AM EDT) athologist Signature POC Glucose 279 (H) 65 - 199 [facility] mg/dL [facility] LAB[facility] Comment: Supplemental ranges: <140 mg/dL before meals <180 mg/dL all other times of the day Specimen Anatomical Collection Method Collection Time Receive d Time (Source) Location / / Volume Laterality Blood 12/10/2021 9:48 AM 2 9:48 EDT AM EDT Iker Cuevas MD POINT OF CARE TEST ORDERABLE S Performing Organization Address City/[facility]/ZIP [place] [address] (ABNORMAL) POCT Glucose (12/10/2021 9:07 AM EDT) athologist Signature POC Glucose 268 (H) 65 - 199 [facility] SU mg/dL [facility] LABORATORY Comment: Supplemental ranges: <140 mg/dL before meals <180 mg/dL all other times of the day Specimen Anatomical Collection Method Collection Time Receive d Time (Source) Location / / Volume Laterality Blood 12/10/2021 9:07 AM 2 9:07 EDT AM EDT Iker Cuevas MD POINT OF CARE TEST ORDERABLE S Performing Organization Address City/State/[place] [address] (ABNORMAL) Point of Care Blood Gas Historical (12/10/2021 9:04 AM EDT) Patholo gist Method Time Signature POC pH 7.40 7.35 - [facility] 7.45 [facility] LABORATORY POC PCO2 40 35 - 45 [facility] mmHg [facility] LABORATORY POC PO2 63 (L) 85 - 104 [facility] LABORATORY POC Base Excess 0.0 -3.0 - 3.0 [facility] K mmol/L [facility] LABORATORY POC HCO3 24.8 20.0 - [facility] 26.0 [facility] mmol/[facility] LABORATORY POC Sodium 143 135 - 145 [facility] mmol/L [facility] LABORATORY POC Potassium 3.7 3.5 - 5.0 [facility] mmol/L [facility] LABORATORY POC Ionized Ca 1.07 (L) 1.15 - [facility] 1.33 [facility] LABORATORY POC Hematocrit 30.0 (L) 40.0 - [facility] 51.0 % [facility] LABORAT[facility] POC Calc Hgb 10.2 (L) 13.7 - [facility] 17.5 g/dL [facility] LABORATORY Comment: The calculation of hemoglobin f rom hematocrit assumes a normal MCHC. POC Bgas Loc CC LAB [facility] LABORATORY Specimen Anatomical Collection Method Collection Time Receive d Time (Source) Location / / Volume Laterality Blood 12/10/2021 9:04 AM 2 EDT 12:00 PM EDT Ifeanyi Truong MD CHEMISTRY ORDERABLES Performing Organization Address City/State/[place] [address] (ABNORMAL) POCT Glucose (12/10/2021 7:19 AM EDT) P athologist Signature POC Glucose 274 (H) 65 - 199 [facility] mg/dL [facility] LABORATORY Comment: Supplemental ranges: <140 mg/dL before meals <180 mg/dL all other times of the day Specimen Anatomical Collection Method Collection Time Receive d Time (Source) Location / / Volume Laterality Blood 12/10/2021 7:19 AM 2 7:19 EDT AM EDT Iker Cuevas MD POINT OF CARE TEST ORDERABLE S Performing Organization Address City/[facility]/[place] [address] Heparin (unfractionated) Level (12/10/2021 4:25 AM EDT) P athologist Signature Heparin UFH 0.69 IU/mL [facility] LABORATORY Comment: Heparin (anti-Xa) levels [...] Cuevas MD HEMATOLOGY ORDERABLES Performing Organization Address City/[facility]/[place] [address] (ABNORMAL) Differential, Automated (12/10/2021 4:25 AM EDT) Patholo gist Method Time Signature Neutrophils % 79.8 % [facility] LABORATORY Neutr Abs (ANC) 7.47 (H) 1.70 - [facility] 6.10 [facility] x10(3)/[facility] L LABORATORY Lymphocytes % 10.6 % [facility] LABORATORY Lymphocytes Abs 1.0 0.9 - 3.2 [facility] x10(3)/[facility] LABORATORY Monocytes % 8.4 % [facility] LABORATORY Monocyte Abs 0.8 0.3 - 0.9 [facility] x10(3)/[facility] LABORATORY Eosinophils % 0.6 % [facility] LABORATORY Eosinophils Abs 0.1 0.0 - 0.4 [facility] x10(3)/[facility] LABORATORY Basophils % 0.2 % [facility] LABORATORY Basophils Abs 0.0 0.0 - 0.1 [facility] x10(3)/[facility] LABORATORY Immature Gran % 0.40 % WHITE [...] Melisa Gran Abs 0.04 0.00 - 0.04 x10(3)/[facility] LABORATORY Specimen Anatomical Collection Method Collection Time Receive d Time (Source) Location / / Volume Laterality Blood 12/10/2021 4:25 AM 4:34 EDT AM EDT Resulting Agency Comment Spec In Lab Morgan BROWN HEMATOLOGY ORDERABLES Performing Organization Address City/State/[place] [address] (ABNORMAL) Hemogram (12/10/2021 4:25 AM EDT) Analysis Performed At Patho logist Time Signature WBC 9.4 4.0 - 9.5 [facility] x10(3)/[facility] LABORATORY RBC 3.81 (L) 4.58 - [facility] 5.54 [facility] x10(6)/[facility] LABORATORY Hemoglobin 11.1 (L) 13.7 - [facility] 16.5 g/dL [facility] LABORATORY Hematocrit 34.0 (L) 40.5 - [facility] 48.5 % [facility] LABORATORY MCV 89.2 82.9 - [facility] 93.1 fL [facility] LABORATORY MCH 29.1 27.5 - [facility] 32.1 pg [facility] LABORATORY MCHC 32.6 32.0 - [facility] 35.7 g/dL [facility] LABORATORY Platelets 183 145 - 357 [facility] x10(3)/[facility] LABORATORY RDWSD 49.9 (H) 36.0 - [facility] SU 45.0 [facility] LABORATORY RDWCV 15.2 (H) 11.4 - [facility] 13.8 % [facility] LABORATORY MPV 9.8 7.6 - 12.9 [facility] LABORATORY nRBC % Auto 0.0 % [facility] LABORATORY nRBC Abs Auto 0.000 0.000 - [facility] 0.000 [facility] x10(3)/[facility] LABORATORY Specimen Anatomical Collection Method Collection Time Receive d Time (Source) Location / / Volume Laterality Blood 12/10/2021 4:25 AM 2 4:34 EDT AM EDT Resulting Agency Comment Spec In Lab Morgan BROWN HEMATOLOGY ORDERABLES Performing Organization Address City/[facility]/[place] [address] (ABNORMAL) Prothrombin Time (12/10/2021 4:25 AM EDT) P athologist Signature PT 20.0 (H) 9.4 - 12.5 [facility] LABORATORY INR 1.7 [facility] LABORATORY [...] City/State/ZIP Code Phon [place] [address] (ABNORMAL) BMP w/fasting Glucose (12/10/2021 4:25 AM EDT) athologist Signature Glucose 210 (H) 65 - 99 [facility] Fasting mg/dL [facility] LABORATORY Comment: ?Fasting* Glucose Interpretive C [...] of Diabetes Mellitus, Position Statement from the [place] [employer]. ??Diabete s Care, Volume 33, Supplement 1, Jul 2009 BUN 54 (H) 10 - 20 mg/dL [facility] LABORATORY Creatinine 1.52 (H) 0.80 - 1.50 mg/dL [facility] LABORATORY Sodium 140 135 - 145 mmol/L [facility] LABORATORY Potassium 3.9 3.5 - 5.0 mmol/L [facility] [...] 15 mmol/L [facility] LABORATORY Calcium 8.0 (L) 8.5 - 10.5 mg/dL [facility] LABORATORY Estimated GFR 44 (L) >=60 mL/min/1.73 m?? [place] [...] Address City/State/[place] [address] Magnesium (12/10/2021 4:25 AM EDT) P athologist Signature Magnesium 0.95 0.69 - 1.07 [facility] mmol/L [facility] LABORATORY Specimen Anatomical Collection Method Collection Time Receive d Time (Source) Location / / Volume Laterality Blood 12/10/2021 4:25 AM 2 4:34 EDT AM EDT Resulting Agency Comment Spec In Lab Iker Cuevas MD CHEMISTRY ORDERABLES Performing Organization Address City/State/[place] [address] POCT Glucose (12/10/2021 1:58 AM EDT) P athologist Signature POC Glucose 164 65 - 199 [facility] mg/dL [facility] LABORATORY Comment: Supplemental ranges: <140 mg/dL before meals <180 mg/dL all other times of the day Specimen Anatomical Collection Method Collection Time Receive d Time (Source) Location / / Volume Laterality Blood 12/10/2021 1:58 AM 2 1:58 EDT AM EDT Iker Cuevas MD POINT OF CARE TEST ORDERABLE S Performing Organization Address City/State/[place] [address] (ABNORMAL) POCT Glucose (12/09/2021 9:02 PM EDT) athologist Signature POC Glucose 313 (H) 65 - 199 [facility] mg/dL [facility] LABORATORY Comment: Supplemental ranges: <140 mg/dL before meals <180 mg/dL all other times of the day Specimen Anatomical Collection Method Collection Time Receive d Time (Source) Location / / Volume Laterality Blood 12/09/2021 9:02 PM 2 9:02 EDT PM EDT Iker Cuevas MD POINT OF CARE TEST ORDERABLE S Performing Organization Address City/[facility]/[place] [address] Heparin (unfractionated) Level (12/09/2021 7:30 PM EDT) athologist Signature Heparin UFH 0.48 IU/mL [facility] LABORATORY Comment: Heparin (anti-Xa) levels [...] Organization Address City/State/[place] [address] (ABNORMAL) Basic Metabolic Panel (non-fasting) (12/09/2021 7:30 PM EDT) athologist Signature Glucose Lvl 372 (H) 65 - 199 [facility] mg/dL [facility] LABORATORY Comment: Diabetes: >=200 mg/dL plus symp toms BUN 56 (H) 10 - 20 mg/dL [facility] LABORATORY Creatinine 1.75 (H) 0.80 - 1.50 mg/dL [facility] LABORATORY Sodium 138 135 - 145 mmol/L [facility] LABORATORY Potassium 4.2 3.5 - 5.0 mmol/L [facility] [...] [facility] LAB[facility] CO2 22 22 - 31 mmol/L [facility] LABORATORY Anion Gap 14 5 - 15 mmol/L [facility] LABORATORY Calcium 8.1 (L) 8.5 - 10.5 mg/dL [facility] LABORATORY Estimated GFR 37 (L) >=60 mL/min/1.73 m?? [place] [...] Cuevas MD CHEMISTRY ORDERABLES Performing Organization Address City/[facility]/ZIP Code Phon e Number [address] (ABNORMAL) POCT Glucose (12/09/2021 6:34 PM EDT) P athologist Signature POC Glucose 408 (H) 65 - 199 [facility] mg/dL [facility] LABORATORY Comment: Supplemental ranges: <140 mg/dL before meals <180 mg/dL all other times of the day Specimen Anatomical Collection Method Collection Time Receive d Time (Source) Location / / Volume Laterality Blood 12/09/2021 6:34 PM 2 6:34 EDT PM EDT Iker Cuevas MD POINT OF CARE TEST ORDERABLE S Performing Organization Address City/[facility]/[place] [address] (ABNORMAL) POCT Glucose (12/09/2021 6:32 PM EDT) P athologist Signature POC Glucose 356 (H) 65 - 199 [facility] mg[facility] LABORATORY Comment: Supplemental ranges: <140 mg/dL before meals <180 mg/dL all other times of the day Specimen Anatomical Collection Method Collection Time Receive d Time (Source) Location / / Volume Laterality Blood 12/09/2021 6:32 PM 2 6:32 EDT PM EDT Iker Cuevas MD POINT OF CARE TEST ORDERABLE S Performing Organization Address City/[facility]/[place] [address] (ABNORMAL) POCT Glucose (12/09/2021 4:19 PM EDT) P athologist Signature POC Glucose 347 (H) 65 - 199 [facility] mg/dL [facility] LABORATORY Comment: Supplemental ranges: <140 mg/dL before meals <180 mg/dL all other times of the day Specimen Anatomical Collection Method Collection Time Receive d Time (Source) Location / / Volume Laterality Blood 12/09/2021 4:19 PM 2 4:19 EDT PM EDT Iker Cuevas MD POINT OF CARE TEST ORDERABLE S Performing Organization Address City/[facility]/ZIP Code Phon e Number [place] [id number] LAB[address] Heparin (unfractionated) Level (12/09/2021 1:29 PM EDT) athologist Signature Heparin UFH 0.42 IU/mL [facility] LABORATORY Comment: Heparin (anti-Xa) levels [...] Cuevas MD HEMATOLOGY ORDERABLES Performing Organization Address City/[facility]/[place] [address] (ABNORMAL) POCT Glucose (12/09/2021 12:02 PM EDT) athologist Signature POC Glucose 235 (H) 65 - 199 [facility] mg/dL [facility] LABORATORY Comment: Supplemental ranges: <140 mg/dL before meals <180 mg/dL all other times of the day Specimen Anatomical Collection Method Collection Time Receive d Time (Source) Location / / Volume Laterality Blood 12/09/2021 12:02 12/09/2021 PM EDT 12:02 PM EDT Iker Cuevas MD POINT OF CARE TEST ORDERABLE S Performing Organization Address City/[facility]/[place] [address] (ABNORMAL) POCT Glucose (12/09/2021 9:44 AM EDT) athologist Signature POC Glucose 214 (H) 65 - 199 [facility] mg/dL [facility] LABORATORY Comment: Supplemental ranges: <140 mg/dL before meals <180 mg/dL all other times of the day Specimen Anatomical Collection Method Collection Time Receive d Time (Source) Location / / Volume Laterality Blood 12/09/2021 9:44 AM 9:44 EDT AM EDT Iker Cuevas MD POINT OF CARE TEST ORDERABLE S Performing Organization Address [facility]/[place] [address] EKG 12 Lead (12/09/2021 7:57 AM EDT) Component Value Ref Range Test Analysis Performed Pathologis t Method Time At Signature Ventricular rate 101 BPM MUSE SYSTEM Atrial Rate 101 BPM MUSE SYSTEM P-R Interval 150 ms MUSE SYSTEM QRS Duration 112 ms MUSE SYSTEM Q-T Interval 364 ms MUSE SYSTEM QTC Calculated 471 ms MUSE SYSTEM (Bezet) Calculated P Ellis 59 degrees MUSE SYSTEM Calculated R Ellis -42 degrees MUSE SYSTEM Calculated T Ellis 102 degrees MUSE SYSTEM INTERPRETATION Sinus tachycardia Occasional Premature ventricular com plexes MUSE SYSTEM Left axis deviation 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) Abnormal ECG When compared with ECG of 08-DEC-2021 16:40, Premature ventricular complexes are now Present Confirmed by MD Fernandez Danette ([id number]) on 12/10/2021 4:55:06 PM Specimen Anatomical Collection Method Collection Time Receive d Time (Source) Location / / Volume Laterality 12/09/2021 7:57 AM 4:55 EDT PM EDT Iker Cuevas MD ECG ORDERABLES Performing Organization Address City/[facility]/ZIP Code Phon e Number MUSE SYSTEM (ABNORMAL) POCT Glucose (12/09/2021 7:28 AM EDT) P athologist Signature POC Glucose 263 (H) 65 - 199 [facility] mg/dL [facility] LABORATORY Comment: Supplemental ranges: <140 mg/dL before meals <180 mg/dL all other times of the day Specimen Anatomical Collection Method Collection Time Receive d Time (Source) Location / / Volume Laterality Blood 12/09/2021 7:28 AM 2 7:28 EDT AM EDT Iker Cuevas MD POINT OF CARE TEST ORDERABLE S Performing Organization Address City/State/[place] [address] (ABNORMAL) Hemoglobin A1c (12/09/2021 6:18 AM EDT) Analysis Performed At Patho logist Time Signature Hemoglobin A1C 7.4 (H) 4.3 - 5.6 [facility] [...] [id number] Est Avg Gluc See note mg/dL [facility] LABORATORY Comment: Estimated Average Glucose [...] with hemoglobinopathies. Additional resources are available on [facility] website. Macario HAMMOND, Ruthann J, Deysi R, et al. ??Tr anslating the A1C assay into estimated average glucose values. ??Diabetes Care 2008:31(8):2354-6166. Specimen Anatomical Collection Method Collection Time Receive d Time (Source) Location / / Volume Laterality Blood Venous Draw / 12/09/2021 6:18 AM 12/10/19 22 Unknown EDT 12:24 PM EDT Resulting Agency Comment Spec In Lab Migdalia BROWN CHEMISTRY ORDERABLES Performing Organization Address [facility] [place] [address] (ABNORMAL) Prothrombin Time (12/09/2021 6:18 AM EDT) P athologist Signature PT 26.6 (H) 9.4 - 12.5 [facility] LABORATORY INR 2.3 [facility] LABORATORY [...] Migdalia BROWN HEMATOLOGY ORDERABLES Performing Organization Address [facility] [place] [address] Heparin (unfractionated) Level (12/09/2021 6:18 AM EDT) P athologist Signature Heparin UFH 0.24 IU/mL [facility] LABORATORY Comment: Heparin (anti-Xa) levels [...] Address City/State/[place] [address] (ABNORMAL) Differential, Automated (12/09/2021 6:18 AM EDT) Patholo gist Method Time Signature Neutrophils % 91.5 % [facility] LABORATORY Neutr Abs (ANC) 15.78 (H) 1.70 - [facility] 6.10 [facility] x10(3)/[facility] L LABORATORY Lymphocytes % 2.9 % [facility] LABORATORY Lymphocytes Abs 0.5 (L) 0.9 - 3.2 [facility] x10(3)/[facility] LABORATORY Monocytes % 4.9 % [facility] LABORATORY Monocyte Abs 0.8 0.3 - 0.9 [facility] x10(3)/[facility] LABORATORY Eosinophils % 0.0 % [facility] LABORATORY Eosinophils Abs 0.0 0.0 - 0.4 [facility] x10(3)/[facility] LABORATORY Basophils % 0.2 % [facility] LABORATORY Basophils Abs 0.0 0.0 - 0.1 [facility] x10(3)/[facility] LABORATORY Immature Gran % 0.50 % [facility] LABORATORY Comment: Immature granulocytes(IG's)percentage an d absolute count will include metamyelocytes, myelocytes, and promyelo cytes. Blood smears from CBCs yielding IG's will be scanned manually for concor dance. If this scan disagrees with the automated IG or if promyelocytes are not ed, a manual differential will be performed. Melisa Gran Abs 0.09 (H) 0.00 - 0.04 x10(3)/[facility] LABORATORY Specimen Anatomical Collection Method Collection Time Receive d Time (Source) Location / / Volume Laterality Blood 12/09/2021 6:18 AM 6:33 EDT AM EDT Resulting Agency Comment Spec In Lab Morgan BROWN HEMATOLOGY ORDERABLES Performing Organization Address City/State/[place] [address] (ABNORMAL) Hemogram (12/09/2021 6:18 AM EDT) Analysis Performed At Patho logist Time Signature WBC 17.2 (H) 4.0 - 9.5 [facility] x10(3)/[facility] LABORATORY RBC 4.32 (L) 4.58 - [facility] 5.54 [facility] x10(6)/[facility] LABORATORY Hemoglobin 12.6 (L) 13.7 - [facility] 16.5 g/dL [facility] LABORATORY Hematocrit 38.9 (L) 40.5 - [facility] 48.5 % [facility] LABORATORY MCV 90.0 82.9 - [facility] 93.1 [facility] LABORATORY MCH 29.2 27.5 - [facility] 32.1 pg [facility] LABORATORY MCHC 32.4 32.0 - [facility] 35.7 g/dL [facility] LABORATORY Platelets 193 145 - 357 [facility] x10(3)/[facility] LABORATORY RDWSD 50.4 (H) 36.0 - [facility] SU 45.0 [facility] LABORATORY RDWCV 15.2 (H) 11.4 - [facility] 13.8 % [facility] LABORATORY MPV 9.5 7.6 - 12.9 [facility] LABORATORY nRBC % Auto 0.0 % [facility] LABORATORY nRBC Abs Auto 0.000 0.000 - [facility] x10(3)/[facility] LABORATORY Specimen Anatomical Collection Method Collection Time Receive d Time (Source) Location / / Volume Laterality Blood 12/09/2021 6:18 AM 6:33 EDT AM EDT Resulting Agency Comment Spec In Lab Morgan BROWN HEMATOLOGY ORDERABLES Performing Organization Address City/State/[place] [address] Lipid Panel (Reflex Direct LDL) (12/09/2021 6:18 AM EDT) P athologist Signature Chol, Total 105 mg/dL [facility] LABORATORY Comment: Lower Risk: <200 mg/dL Average Risk: 200-239 mg/dL Higher Risk: >hq=541 mg/dL Triglycerides 133 mg/dL [facility] LABORATORY Comment: Average Risk/Lower Risk: <150 mg/dL Borderline High Risk: 150-199 mg/dL High Risk: 200-499 mg/dL Very High Risk: >dh=843 mg/dL HDL 42 mg/dL [facility] LABORATORY Comment: Males: ?? Higher Risk: <40 mg/dL Females: ?? Higher Risk: <50 mg/dL LDL Cholesterol 36 mg/dL [facility] LABORATORY Comment: Lowest Risk: <100 mg/dL Lower Risk: 100-129 mg/dL Borderline High Risk: 130-159 mg/dL High Risk: 160-189 mg/dL Very High Risk: >qb=509 mg/dL Chol/HDL Ratio 2.5 ratio [facility] LABORATORY Lipid Interpretation See Note [facility] LABORATORY Comment: Lipid management should be guided by a p atient? s ASCVD risk, goals and preferences. ACC/AHA Guidelines recommend high intens ity statin if clinical ASCVD or LDL greater than or equal to 190 mg/dL. http://tinyurl.com/TCB-ZWI-Yevwcdhjf Adults aged 40-75 with LDL 70-189 mg/dL should have their 10 year ASCVD risk estimated with the ACC/AHA ASCVD risk es timator http://tools.acc.org/PGSSF-Zstt-Hxdrmbuh r/ Statin should be discussed if risk [...] Cuevas MD CHEMISTRY ORDERABLES Performing Organization Address City/[facility] [place] [address] TSH (12/09/2021 6:18 AM EDT) athologist Signature TSH 1.60 0.27 - 4.20 [facility] mcIU/mL [facility] LABORATORY Comment: Reference Interval (mcIU/mL): Females: ??First Trimester: 0.23-3.88 ??Second Trimester: 0.22-3.90 ??Third Trimester: 0.44-4.66 Specimen Anatomical Collection Method Collection Time Receive d Time (Source) Location / / Volume Laterality Blood 12/09/2021 6:18 AM 2 6:33 EDT AM EDT Resulting Agency Comment Spec In Lab Iker Cuevas MD CHEMISTRY ORDERABLES Performing Organization Address City/[facility] [place] [address] Hepatic Function Panel (12/09/2021 6:18 AM EDT) P athologist Signature Total Protein 7.3 6.1 - 8.0 [facility] g/dL [facility] LABORATORY Albumin 4.2 3.2 - 5.2 [facility] g/dL [facility] LABORATORY AST 25 0 - 39 [facility] SU unit/L [facility] LABORATORY ALT 15 0 - 55 [facility] LABORATORY Alk Phos 75 40 - 130 [facility] unit/L [facility] LABORATORY Total 1.1 0.2 - 1.3 [facility] Bilirubin mg/dL [facility] LABORATORY Bili, Direct 0.2 0.0 - 0.3 [facility] mg/dL [facility] LABORATORY Specimen Anatomical Collection Method Collection Time Receive d Time (Source) Location / / Volume Laterality Blood 12/09/2021 6:18 AM 6:33 EDT AM EDT Resulting Agency Comment Spec In Lab Iker Cuevas MD CHEMISTRY ORDERABLES Performing Organization Address City/State/[place] [address] (ABNORMAL) BMP w/fasting Glucose (12/09/2021 6:18 AM EDT) P athologist Signature Glucose 235 (H) 65 - 99 [facility] Fasting mg/dL [facility] LABORATORY Comment: ?Fasting* Glucose Interpretive C [...] of Diabetes Mellitus, Position Statement from the [place] [employer]. ??Diabete s Care, Volume 33, Supplement 1, Jul 2009 BUN 49 (H) 10 - 20 mg/dL [facility] LABORATORY Creatinine 1.33 0.80 - 1.50 mg/dL [facility] LABORATORY Sodium 139 135 - 145 mmol/L [facility] LABORATORY Potassium 4.2 3.5 - 5.0 mmol/L [facility] LAB[facility] Anion Gap 17 (H) 5 - 15 mmol/L [facility] LABORATORY Calcium 8.8 8.5 - 10.5 mg/dL [facility] LABORATORY Estimated GFR 52 (L) >=60 mL/min/1.73 m?? [place] [...] Organization Address City/State/[place] [address] Magnesium (12/09/2021 6:18 AM EDT) athologist Signature Magnesium 0.81 0.69 - 1.07 [facility] mmol/L [facility] LABORATORY Specimen Anatomical Collection Method Collection Time Receive d Time (Source) Location / / Volume Laterality Blood 12/09/2021 6:18 AM 2 6:33 EDT AM EDT Resulting Agency Comment Spec In Lab Iker Cuevas MD CHEMISTRY ORDERABLES Performing Organization Address City/[facility]/[place] [address] (ABNORMAL) Troponin (12/09/2021 6:18 AM EDT) athologist Signature Troponin-T 1.13 (H) 0.00 - [facility] 0.00 ng/mL [facility] LABORATORY Comment: The 99th percentile for [...] additional sample may be indicated. Reference: Third [place] Definition of Myocardial Infarction. Journal of the [place] [employer] 2012;60:1581-98 Specimen Anatomical Collection Method Collection Time Receive d Time (Source) Location / / Volume Laterality Blood 12/09/2021 6:18 AM 2 6:33 EDT AM EDT Resulting Agency Comment Spec In Lab Iker Cuevas MD CHEMISTRY ORDERABLES Performing Organization Address City/[facility]/[place] [address] XR Chest One View [...] have questions please contact the health healthcare administration intern that requested your imaging first. ? Narrative [...] have questions please contact the health healthcare administration intern that requested your imaging first. Amber Sanches MD IMG DX ORDERABLES (ABNORMAL) BLOOD GAS 2 ARTERIAL (12/09/2021 5:14 AM EDT) Analysis Performed At Patho logist Time Signature pH Art 7.43 7.35 - [facility] 7.45 [facility] LABORATORY pCO2 Art 36 35 - 45 [facility] mmHg [facility] LABORATORY pO2 Art 67 (L) 85 - 104 [facility] mmHg [facility] LABORATORY HCO3 Art 23.4 20.0 - [facility] 26.0 [facility] mmol/L [facility] LABORATORY BE Art -0.9 -3.0 - 3.0 [facility] mmol/L [facility] LABORATORY Hgb Blood Gas 13.2 (L) 13.7 - [facility] 16.5 g/dL [facility] LABORATORY O2HB Art 91.3 (L) 94.0 - [facility] 97.0 % [facility] LABORATORY COHB Art 0.4 % [facility] LABORATORY Comment: Nonsmokers: 0.5-1.5% COHB Smokers: Variable, but usually less than 10% Toxic: 20-30% COHB Lethal: Greater than 60% COHB METHB Art 0.4 <=1.5 % [facility] [facility] Na Whole Blood 138 135 - 145 mmol/L [facility] K Whole Blood 4.1 3.5 - 5.0 mmol/L [facility] Comment: Please note: Patients with WBC >100,000 may have falsely elevated Potassium levels. Contact the Clinical Chemistry L aboratory if there are any questions. ICa Whole Blood 1.09 (L) 1.15 - 1.33 mmol/L [facility] FIO2 Art 35 % [facility] Flow Art 8.0 LPM [facility] PF Ratio Art 191 [facility] Specimen Anatomical Collection Method Collection Time Receive d Time (Source) Location / / Volume Laterality Blood 12/09/2021 5:14 AM 2 5:14 EDT AM EDT Iker Cuevas MD CHEMISTRY ORDERABLES Performing Organization Address City/[facility]/ZIP Code Phon e Number [address] POCT Glucose (12/09/2021 4:46 AM EDT) athologist Signature POC Glucose 198 65 - 199 [facility] mg/dL [facility] Comment: Supplemental ranges: <140 mg/dL before meals <180 mg/dL all other times of the day Specimen Anatomical Collection Method Collection Time Receive d Time (Source) Location / / Volume Laterality Blood 12/09/2021 4:46 AM 2 4:46 EDT AM EDT Iker Cuevas MD POINT OF CARE TEST ORDERABLE S Performing Organization Address City/[facility]/[place] [address] (ABNORMAL) POCT Glucose (12/09/2021 3:01 AM EDT) P athologist Signature POC Glucose 225 (H) 65 - 199 [place] mg/dL [facility] Comment: Supplemental ranges: <140 mg/dL before meals <180 mg/dL all other times of the day Specimen Anatomical Collection Method Collection Time Receive d Time (Source) Location / / Volume Laterality Blood 12/09/2021 3:01 AM 3:01 EDT AM EDT Iker Cuevas MD POINT OF CARE TEST ORDERABLE S Performing Organization Address City/State/[place] [address] (ABNORMAL) POCT Glucose (12/08/2021 10:55 PM EDT) athologist Signature POC Glucose 327 (H) 65 - 199 [facility] mg[facility]dL [facility] Comment: Supplemental ranges: <140 mg/dL before meals <180 mg/dL all other times of the day Specimen Anatomical Collection Method Collection Time Receive d Time (Source) Location / / Volume Laterality Blood 12/08/2021 10:55 12/08/2021 PM EDT 10:55 PM EDT Iker Cuevas MD POINT OF CARE TEST ORDERABLE S Performing Organization Address City/State/[place] [address] Heparin (unfractionated) Level (12/08/2021 10:03 PM EDT) athologist Signature Heparin UFH 0.18 IU/mL [facility] LABORATORY Comment: Heparin (anti-Xa) levels [...] Address City/State/[place] [address] (ABNORMAL) Troponin (12/08/2021 10:03 PM EDT) athologist Signature Troponin-T 0.92 (H) 0.00 - [place] DAVIS 0.00 ng/mL [facility] Comment: The 99th percentile for [...] additional sample may be indicated. Reference: Third [place] Definition of Myocardial Infarction. Journal of the [place] College [employer] 2012;60:1581-98 Specimen Anatomical Collection Method Collection Time Receive d Time (Source) Location / / Volume Laterality Blood 12/08/2021 10:03 12/08/2021 PM EDT 10:31 PM EDT Resulting Agency Comment Spec In Lab Iker Cuevas MD CHEMISTRY ORDERABLES Performing Organization Address City/[facility]/[place]IP [place] [address] (ABNORMAL) POCT Glucose (12/08/2021 8:22 PM EDT) athologist Signature POC Glucose 429 (H) 65 - 199 [facility] mg[facility]dL [facility] Comment: Supplemental ranges: <140 mg/dL before meals <180 mg/dL all other times of the day Specimen Anatomical Collection Method Collection Time Receive d Time (Source) Location / / Volume Laterality Blood 12/08/2021 8:22 PM 2 8:22 EDT PM EDT Iker Cuevas MD POINT OF CARE TEST ORDERABLE S Performing Organization Address City/[facility]/[place] [address] (ABNORMAL) POCT Glucose (12/08/2021 7:06 PM EDT) athologist Signature POC Glucose 442 (H) 65 - 199 [facility] mg/dL [facility] Comment: Supplemental ranges: <140 mg/dL before meals <180 mg/dL all other times of the day Specimen Anatomical Collection Method Collection Time Receive d Time (Source) Location / / Volume Laterality Blood 12/08/2021 7:06 PM 2 7:06 EDT PM EDT Iker Cuevas MD POINT OF CARE TEST ORDERABLE S Performing Organization Address City/[facility]/[place]IP [place] [address] Magnesium (12/08/2021 6:02 PM EDT) athologist Signature Magnesium 0.86 0.69 - 1.07 [facility] mmol/L [facility] Specimen Anatomical Collection Method Collection Time Receive d Time (Source) Location / / Volume Laterality Blood 12/08/2021 6:02 PM 2 6:36 EDT PM EDT Resulting Agency Comment Spec In Lab Iker Cuevas MD CHEMISTRY ORDERABLES Performing Organization Address City/[facility]/[place] [address] (ABNORMAL) Basic Metabolic Panel (non-fasting) (12/08/2021 6:02 PM EDT) P athologist Signature Glucose Lvl 392 (H) 65 - 199 [facility] mg/dL [facility] Comment: Diabetes: >=200 mg/dL plus symp toms BUN 41 (H) 10 - 20 mg/dL [facility] Creatinine 1.44 0.80 - 1.50 mg/dL [facility] Sodium 138 135 - 145 mmol/L [facility] Potassium 4.5 3.5 - 5.0 mmol/L [facility] CO2 20 (L) 22 - 31 mmol/L [facility] Anion Gap 16 (H) 5 - 15 mmol/L [facility] Calcium 8.6 8.5 - 10.5 mg/dL [facility] Estimated GFR 47 (L) >=60 mL/min/1.73 m?? [facility] [place] [...] City/State/ZIP Code Phon e Number [place] [id number] LAB[address]ORY Drive (ABNORMAL) Differential, Automated (12/08/2021 6:02 PM EDT) [facility] Method Time Signature Neutrophils % 89.5 % [facility] Neutr Abs (ANC) 13.97 (H) 1.70 - [facility] 6.10 [facility] x10(3)/[facility] L LABORATORY Lymphocytes % 3.7 % [facility] Lymphocytes Abs 0.6 (L) 0.9 - 3.2 [facility] x10(3)/[facility] LABORATORY Monocytes % 6.1 % [facility]ORY Monocyte Abs 1.0 (H) 0.3 - 0.9 [facility] x10(3)/[facility] LABORATORY Eosinophils % 0.0 % [facility] Eosinophils Abs 0.0 0.0 - 0.4 [facility] x10(3)/[facility] LABORATORY Basophils % 0.2 % [facility] Basophils Abs 0.0 0.0 - 0.1 [facility] x10(3)/[facility] LABORATORY Immature Gran % 0.50 % [facility] Comment: Immature granulocytes(IG's)percentage an d absolute count will include metamyelocytes, myelocytes, and promyelo cytes. Blood smears from CBCs yielding IG's will be scanned manually for concor dance. If this scan disagrees with the automated IG or if promyelocytes are not ed, a manual differential will be performed. Melisa Gran Abs 0.08 (H) 0.00 - 0.04 x10(3)/[facility] LABORATORY Specimen Anatomical Collection Method Collection Time Receive d Time (Source) Location / / Volume Laterality Blood 12/08/2021 6:02 PM 6:36 EDT PM EDT Resulting Agency Comment Spec In Lab Morgan BROWN HEMATOLOGY ORDERABLES Performing Organization Address City/State/[place] [address] (ABNORMAL) Hemogram (12/08/2021 6:02 PM EDT) Analysis Performed At Patho logist Time Signature WBC 15.6 (H) 4.0 - 9.5 [facility] x10(3)/[facility] LABORATORY RBC 4.05 (L) 4.58 - [facility] 5.54 [facility] x10(6)/[facility] LABORATORY Hemoglobin 11.8 (L) 13.7 - [facility] 16.5 g/dL [facility] Hematocrit 35.8 (L) 40.5 - [facility] 48.5 % [facility] MCV 88.4 82.9 - [facility] 93.1 [facility] LABORATORY MCH 29.1 27.5 - [facility] 32.1 pg [facility] MCHC 33.0 32.0 - [facility] 35.7 g/dL [facility] Platelets 178 145 - 357 [facility] x10(3)/[facility] LABORATORY RDWSD 49.3 (H) 36.0 - [facility] 45.0 [facility] LABORATORY RDWCV 15.1 (H) 11.4 - [facility] 13.8 % [facility] MPV 10.4 7.6 - 12.9 [facility] LABORATORY nRBC % Auto 0.0 % [facility]OR[facility]ORY nRBC Abs Auto 0.000 0.000 - [place] 0.000 [facility] x10(3)/[facility] LABORATORY Specimen Anatomical Collection Method Collection Time Receive d Time (Source) Location / / Volume Laterality Blood 12/08/2021 6:02 PM 2 6:36 EDT PM EDT Resulting Agency Comment Spec In Lab Morgan BROWN HEMATOLOGY ORDERABLES Performing Organization Address City/State/[place] [address] (ABNORMAL) Troponin (12/08/2021 6:02 PM EDT) P athologist Signature Troponin-T 0.89 (H) 0.00 - [place] [facility] 0.00 ng/mL [facility] Comment: The 99th percentile for [...] additional sample may be indicated. Reference: Third [place] Definition of Myocardial Infarction. Journal of the [place] College [employer]iology 2012;60:1581-98 Specimen Anatomical Collection Method Collection Time Receive d Time (Source) Location / / Volume Laterality Blood 12/08/2021 6:02 PM 6:36 EDT PM EDT Resulting Agency Comment Spec In Lab Iker Cuevas MD CHEMISTRY ORDERABLES Performing Organization Address City/State/[place] [address] COVID-19 PCR (12/08/2021 5:00 PM EDT) [facility] Method Time Signature SARS-CoV-2 Not Detected Not Detected [place] RNA PCR [facility] LAB[facility] Comment: This result should [...] of [place] VID-19 is performed using the [employer] COVID-19 Direct Assay by [employer] Alan marcum as authorized by the FDA issued [...] Department of Pathology and Laboratory Medicine at [facility], certified under the Clinical Laboratory [...] fact sheets at the following FDA website: https://www.fda.gov/medical-devices/lmggcgxkwtt-hczfhxn-7689-brkio-78-ihvddwlct- prl-umddywddyrpgfp-eybqzrx-devices/cnxrx-yuhvsdsncsw-bnsi SARS-CoV-2 Source MANAGER MUSIC Swab [facility] Specimen (Source) Anatomical Collection Method Collection Time Re ceived Time Location / / Volume Laterality Nasopharyngeal Swab 12/08/2021 5:00 12/08 PM EDT 6:03 PM EDT Comment: Symptoms->Surveillance Resulting Agency Comment Spec In Lab Iker Cuevas MD MICROBIOLOGY - GENERAL ORDER ROBSON Performing Organization Address City/[facility]/ZIP Code Phon e Number [place] [phone]OSP[address] LAB[address]ORY Drive EKG 12 Lead (12/08/2021 4:40 PM EDT) Component Value Ref Range Test Analysis Performed Pathologis t Method Time At Signature Ventricular rate 78 BPM MUSE SYSTEM Atrial Rate 78 BPM MUSE SYSTEM P-R Interval 152 ms MUSE SYSTEM QRS Duration 96 ms MUSE SYSTEM Q-T Interval 396 ms MUSE SYSTEM QTC Calculated 451 ms MUSE SYSTEM (Bezet) Calculated P Ellis 44 degrees MUSE SYSTEM Calculated R Ellis -31 degrees MUSE SYSTEM Calculated T Ellis 124 degrees MUSE SYSTEM INTERPRETATION Normal sinus rhythm MUSE SYSTEM Left axis deviation ST elevation ??in V1, minimal eleavtion V2 ST & T wave abnormality, consider lateral ischemia Abnormal ECG When compared with ECG of 06-SEP-2019 14:15, Questionable change in initial forces of Septal leads Confirmed by Jeanie Lucas ([email or web address]) on 12/09/2021 4:34:49 P M Specimen Anatomical Collection Method Collection Time Receive d Time (Source) Location / / Volume Laterality 12/08/2021 4:40 PM 2 4:34 EDT PM EDT Iker Cuevas MD ECG ORDERABLES Performing Organization Address [facility]/ZIP Code Phon e Number MUSE SYSTEM (ABNORMAL) POCT Glucose (12/08/2021 4:34 PM EDT) P athologist Signature POC Glucose 400 (H) 65 - 199 [facility] mg/dL [facility] Comment: Supplemental ranges: <140 mg/dL before meals <180 mg/dL all other times of the day Specimen Anatomical Collection Method Collection Time Receive d Time (Source) Location / / Volume Laterality Blood 12/08/2021 4:34 PM 2 4:34 EDT PM EDT Iker Cuevas MD POINT OF CARE TEST ORDERABLE S Performing Organization Address City/[facility]/[place] [address] documented in this encounter Visit Diagnoses Diagnosis Admitted with CHF. 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 OSMANI ok. PCI of LM/ostial Cx. Will stage RPDA for 2 w eeks. EDP 30. DM. MARIA VICTORIA. ICM. Home Wednesday. - Primary Unspecified general medical examination ST elevation myocardial infarction (STEM I), unspecified artery Acute HFrEF (heart failure with reduced ejection fraction) ASHD (arteriosclerotic heart disease) Coronary atherosclerosis of unspecified type of vessel, [place] or graft Cardiomyopathy, ischemic Other specified forms [...] (after last modification) on Ivis 12/11/21 at 1300, Until Discontinued, MEAL ASSOCIATED Give 1 unit: 3 grams of carbohydrate Hold if not eating or if BG less than 70 mg/dL., Routine insulin lispro (HumaLOG;Admelog) (100 Given 12/12/2021 8:28 AM E DT 10 Units unit/mL) subcutaneous injection vial 0-35 Units 0-35 Units, Subcutaneous, 3 TIMES DAILY WITH MEALS, First dose (after last modification) on [facility] 12/11/21 at 1730, Until Discontinued, MEAL ASSOCIATED Give 1 unit: 3 grams of carbohydrate Hold if not eating or if BG less than 70 mg/dL., Routine Given 12/11/2021 5:16 PM EDT 10 Units insulin lispro (HumaLOG;Admelog) (100 Given 12/09/2021 1:24 PM E DT 3 Units unit/mL) subcutaneous injection vial 0-8 Units 0-8 Units, Subcutaneous, 3 TIMES DAILY WITH MEALS, First dose on Wed12/08/21 at 1730, Until Discontinued, MEAL ASSOCIATED Give [...] RN) 0835 (Given - Provider: Emma Garcia RN)2040 (Given - Provider: Derrick Galeas RN) 0830 [...] 0828 (Given - Provider: Lilliana Esteban RN) 81 mg, Oral, DAILY, First dose [...] ( COMPLETED) 1401 (Given - Provider: Emma Garcia RN) 40 mEq, Oral, ONCE, 1 dose, On Wed12/10/21 at 1245, Routine sodium chloride 0.9 % (flush) (BD PosiFlush Normal Sean ine 0.9) flush 5 mL 0805 (SEP Hold - Provider: Admin Adt - Reason: Transfer to a Procedural area)0900 (Not Given - Provider: Emma Garcia RN - Reason: Transfer to a Procedural area)1230 (SEP Unhold - Provider: Admin Adt)1746 (Given - Provider: Emma Garcia RN) 0900 (Given - Provider: Emma Garcia RN )204 (Given - Provider: Derrick Galeas RN) 0900 (Hold - Provider: Lilliana cerda, RN - Reason: Loss of access) 5 mL, Intravenous, 2 TIMES DAILY, First dose on Wed12/08/21 at 2100, Until Discontinued, Routine 2033 (Given - Provider: Barbara Boogie, VAMSI) spironolactone (Aldactone) tablet 25 mg 0844 (Given - Provider: Emma Garcia, VAMSI) 0829 (Given - Provider: Lilliana friedman, RN) 25 mg, Oral, DAILY, First dose on Ivis at 0915, Until Discontinued, DO NOT SPLIT, CRUSH OR OPEN, Routine torsemide (Demadex) tablet 40 mg 0844 (Given - P rovider: Emma Garcia RN) 08 (Given - Provider: Lilliana Esteban, VAMSI) 40 mg, Oral, DAILY, First dose on Ivis at 0930, Until Discontinued, Routine PRN Medication Order 12/10/2021 12/11/2021 12/12/2021 acetaminophen (Tylenol) tablet 650 mg 0805 ([facility] Hold - Provider: Admin Adt - Reason: Transfer to a Procedural area)1230 ([facility] Unhold - Provider: Admin Adt) 650 [...] Routine bisacodyL (Dulcolax) suppository 10 mg 0805 ([facility] Hold - Provider: Admin Adt - Reason: Transfer to a Procedural area)1230 ([facility] Unhold - Provider: Admin Adt) 10 mg, Rectal, DAILY PRN, Starting on Tu e 12/09/21 at 1629, Until Wed12/12/21 at 1312, Constipation, Routine dextrose 10% infusion(Linked Group 2) 0805 ([facility] Hold - Provider: Admin Adt - Reason: Transfer to a Procedural area)1230 ([facility] Unhold - Provider: Admin Adt) 250 [...] area)1230 ([facility] Unhold - Provider: Admin Adt) 1 mg, [...] - Provider: Mendy Schaffer)0952 (Given - Provider: Mnedy Schaffer) ONCE PRN, Starting on Wed12/10/21 at [...] (Intra-Procedure), Routine niCARdipine (Cardene) (100 mcg/mL) dilution (AIRLINE TICKET AGENT) (CANCELED) 1030 (Given - Provider: Vitaliy Nobles [...] 8.6-50 mg per tablet 1 tab let 08 (SEP Hold - Provider: Admin Adt [...] EVERY 1 MIN PRN, S tarting on 12/08/21 at 1639, Until Wed12/12/21 at 1312, flush, [...] episode. & nbsp; For persistent hypoglycemia, con release engineer longer-acting treatment for the duration of the [...]
Routine documented in this encounter Care Teams Trousseau Consultant Relationship Specialty Start Date End Date Lovely Vicente MD PCP - General 04/16/[address] [place] [address] [address] [facility] [address] [place] [address] documented as of this encounter
--- OUTSIDE RECORDS SUMMARY | 2022-02-20 01:40 | XMS_ITS | Encounter Summary ---
:1945 Author Organization [facility] [address] Care Team Providers Name Role Phone Lovely Vicente MD Primary Care Provider Encounter Details Date Type Department Care Team Description 12/07/2021 Telephone Cardiology Eddi Briceño Jr., [facility] [place] [address] [facility] [phone] CARDIOLOGY DEPT [place], [place] 0[address] (Wo rk) Social History Tobacco [...] OSH ED provider/staff member. Referring Location: [facility] Referring Provider: Marisela Dean, SENIOR ENLISTED ADVISOR [address] [place] [address] Don Veda Kushal 76 y.o. w / [...] bpm, LAFB, poor R wave progression, septal MD, and lateral STD, overall no significantchange from [...] Vitaliy Nobles MD [facility] [address] [place], [place] [address] (Wo rk) documented as of this encounter Visit Diagnoses Not on filedocumented in this encounter Care Teams Restaurant Kitchen Manager Relationship Specialty Start Date End Date Lovely Vicente MD PCP - General 04/16/[address] [place] [address] documented as of this encounter
--- OUTSIDE RECORDS SUMMARY | 2022-02-20 01:40 | XMS_ITS | Encounter Summary ---
:1945 Author Organization [facility] [place] [address] Care Team Providers Name Role Phone Lovely Vicente MD Primary Care Provider Encounter Details Date Type Department Care Team Description 04/16/2021 Laboratory Appointment Lab 3L [facility] systolic [facility] [place] [phone] Social History Tobacco Use Types Packs/Day Years [...] Visit Cardiology Vitaliy Nobles MD [facility] CARDIOLOGY [place], [place] 0[address] (Wo rk) documented as [...] City/State/[place] [address] (ABNORMAL) Basic Metabolic Panel (non-fasting) (04/16/2021 9:58 AM EDT) athologist Signature Glucose Lvl 77 65 - 199 [facility] mg/dL [facility] LABORATORY Comment: Diabetes: >=200 mg/dL plus symp toms BUN 23 (H) 10 - 20 mg/dL [facility] LABORATORY Creatinine 1.26 0.80 - 1.50 mg/dL [facility] LABORATORY Sodium 140 135 - 145 mmol/L [facility] LABORATORY Potassium 5.2 (H) 3.5 - 5.0 mmol/L [facility] [...] Anion Gap 9 5 - 15 mmol/L [facility] LABORATORY Calcium 9.3 8.5 - 10.5 mg/dL [facility] LABOR[facility] Estimated GFR 55 (L) >=60 [...] Resulting Agency Comment Spec In Lab Zulma lPunkett MD CHEMISTRY ORDERABLES Performing Organization Address City/State/[place] [address] documented in this encounter Visit Diagnoses Diagnosis Chronic systolic heart failure documented in this encounter Care Teams Raw Scales Operator Relationship Specialty Start Date End Date Lovely Vicente MD PCP - General 04/16/[address] [place] [address] documented as of this encounter
--- OUTSIDE RECORDS SUMMARY | 2022-02-20 01:40 | XMS_ITS | Encounter Summary ---
:1945 Author Organization [facility] [place] [address] Care Team Providers Name Role Phone Lovely Vicente MD Primary Care Provider Encounter Details Date Type Department Care Team Description 12/08/2021 External Results Non-Invasive Cardiology Lab Mar y None [facility] [place] [address] Social History Tobacco Use Types Packs/Day [...] Nobles MD [facility] CARDIOLOGY [place], [place] [address] (Wo rk) documented as of [...] on filedocumented in this encounter Care Teams Pattern Data Operator Relationship Specialty Start Date End Date Lovely Vicente MD PCP - General 04/16/[address] [place] [address] [address] [facility] [place] [address] documented as of this encounter
--- OUTSIDE RECORDS SUMMARY | 2022-02-20 01:40 | XMS_ITS | Encounter Summary ---
:1945 Author Organization [facility] [place] [address] Care Team Providers Name Role Phone Lovely Vicente MD Primary Care Provider Encounter Details Date Type Department Care Team Description 12/07/2021 [place] [address] Social History Tobacco Use Types Packs/Day [...] MD [facility] CARDIOLOGY [place], [place] [...] on filedocumented in this encounter Care Teams Fleet Coordinator Relationship Specialty Start Date End Date Dobbertin, Lovely, MD PCP - General 04/16/[address] [place] [address] documented as of this encounter
--- OUTSIDE RECORDS SUMMARY | 2022-02-20 01:41 | XMS_ITS | Encounter Summary ---
:1945 Author Organization [facility] [place] [address] Care Team Providers Name Role Phone Lovely Vicente MD Primary Care Provider Encounter Details Date Type Department Care Team Description 08/15/2018 Laboratory Lab 3L Barbara Chronic systoli c heart failure; Appointment [facility] ASCVD (ar teriosclerotic cardiovascular disease) [place] [address] Social History Tobacco Use Types [...] Nobles MD [facility] CARDIOLOGY [place], [place] [address] (Wo rk) documented as of [...] Signature Glucose Lvl 116 65 - 199 [facility] mg/dL [facility] Comment: Diabetes: >=200 mg/dL plus symp toms BUN 21 (H) 10 - 20 mg/dL [facility] Creatinine 1.08 0.80 - 1.50 mg/dL [facility] Sodium 144 135 - 145 mmol/L [facility] Potassium 4.6 3.5 - 5.0 mmol/L [facility] 15 mmol/L [facility] Calcium 9.0 8.5 - 10.5 mg/dL [facility] Estimated GFR 68 >=60 mL/min/1.73 m?? [facility] Comment: The eGFR was calculated using the CKD-EP I equation. As with all creatinine based estimates of kidney function, eGFR values calculated with the CKD-EPI equation are not accurate in patients wi th acute kidney failure, extremes of body mass or the acutely ill. http://MobileSpaces/DHMCnkf eGFR 79 >=60 mL/min/1.73 m?? [facility] Comment: The eGFR was calculated using the CKD-EP I equation. As with all creatinine based estimates of kidney function, eGFR values calculated with the CKD-EPI equation are not accurate in patients wi th acute kidney failure, extremes of body mass or the acutely ill. http://MobileSpaces/DHMCnkf Specimen Anatomical Collection Method Collection Time Receive d Time (Source) Location / / Volume Laterality Blood specimen 08/15/2018 8:04 AM 019 8:20 (specimen) EST AM EST Resulting Agency Comment Spec In Lab Danette Maxwell STACIE CHEMISTRY ORDERABLES Performing Organization Address City/State/[place] [address] Lipid Panel (08/15/2018 8:04 AM EST) athologist Signature Chol, Total 75 mg/dL [facility] Comment: Lower Risk: <200 mg/dL Average Risk: 200-239 mg/dL Higher Risk: >sv=574 mg/dL Triglycerides 185 mg/dL [facility] Comment: Average Risk/Lower Risk: <150 mg/dL Borderline High Risk: 150-199 mg/dL High Risk: 200-499 mg/dL Very High Risk: >qx=111 mg/dL HDL 32 mg/dL [facility] Comment: Males: ?? Higher Risk: <40 mg/dL Females: ?? HIgher Risk: <50 mg/dL LDL Cholesterol 6 mg/dL [facility] Comment: Lowest Risk: <100 mg/dL Lower Risk: 100-129 mg/dL Borderline High Risk: 130-159 mg/dL High Risk: 160-189 mg/dL Very High Risk: >lu=260 mg/dL Chol/HDL Ratio 2.3 ratio [facility] Lipid Interpretation See Note [facility] Comment: Lipid management should be guided by a p atient? s ASCVD risk, goals and preferences. ACC/AHA Guidelines recommend high intens ity statin if clinical ASCVD or LDL greater than or equal to 190 mg/dL. http://adQurl.com/RYZ-ODT-Rhqfmapnp Adults aged 40-75 with LDL 70-189 mg/dL should have their 10 year ASCVD risk estimated with the ACC/AHA ASCVD risk es timator http://tools.acc.org/NDGQX-Ivvn-Nokvsiuc r/ Statin should be discussed if risk [...] Agency Comment Spec In Lab Danette A [place] STACIE CHEMISTRY ORDERABLES Performing Organization Address City/[facility]/[place] [address] (ABNORMAL) pro-Brain Natriuretic Peptide (08/15/2018 8:04 AM EST) P athologist Signature ProBNP 1,797 (H) <=125 [facility] pg/mL [facility] Specimen Anatomical Collection Method Collection Time Receive d Time (Source) Location / / Volume Laterality Blood specimen 08/15/2018 8:04 AM 019 8:20 (specimen) EST AM EST Resulting Agency Comment Spec In Lab Danette Gomes Hans QUINONES CHEMISTRY ORDERABLES Performing Organization Address City/[facility]/ZIP [facility] [place] [address] documented in this encounter Visit Diagnoses Diagnosis Chronic systolic heart failure ASCVD (arteriosclerotic cardiovascular d isease) Unspecified cardiovascular disease documented in this encounter Care Teams Glaciologist Relationship Specialty Start Date End Date Lovely Vicente MD PCP - General 04/16/[address] [place] [address] documented as of this encounter
--- OUTSIDE RECORDS SUMMARY | 2022-02-20 01:41 | XMS_ITS | Encounter Summary ---
:1945 Author Organization [facility] [place] [address] Care Team Providers Name Role Phone Lovely Vicente MD Primary Care Provider Reason for Referral Diagnostic Test (Routine) - Specialty Diagnoses / Procedures Referred By Contact Refer red To Contact Cardiology Diagnoses Chronic systolic heart failure Danette Maxwell APRN [facility] Non-Inv Card Lab Procedures Echocardiogram Transthoracic(Leb) [facility] [place] [phone] [place] [address] Referral ID Status Reason Start Date Expiration Visits Visits Date Requested Authorized [id number] Specialty 08/15/2018 08/15/2018 1 1 Service Requested Reason for Visit Diagnostic Test (Routine) - Specialty Diagnoses / Procedures Referred By Contact Nawaf owen To Contact Cardiology Diagnoses Chronic systolic heart failure Danette Maxwell APRN [facility] Non-Inv Card Lab Procedures Echocardiogram Transthoracic(Leb) [facility] [place] [address] [place] [address] Referral ID Status Reason Start Date Expiration Visits Visits Date Requested Authorized [id number] Specialty 08/15/2018 08/15/2018 1 1 Service Requested Encounter Details Date Type Department Care Team Description 08/15/2018 Hospital Encounter Non-Invasive Danette Maxwell Chron ic systolic Cardiology Lab Barbara Gomes APRN heart failure [facility] [place] [address] [place] [phone] [address] (Work) [phone] Social History Tobacco Use Types Packs/Day Years [...] Visit Cardiology Vitaliy Nobles MD [facility] ER DR CARDIOLOGY [place], [place] [address] (Wo rk) documented as of this encounter Procedures Procedure Name Priority Date/Time Associated Comments Diagnosis ECHOCARDIOGRAM COMPLETE Routine 08/15/2018 7:55 AM Chronic sys tolic Results for this W CONTRAST EST heart failure procedure are in the results section. documented in this encounter Results ECHOCARDIOGRAM COMPLETE W CONTRAST (08/15/2018 7:55 AM EST) P athologist Signature EF 35 [facility] Specimen (Source) Anatomical Location Collection Method / Collectio n Time Received Time / Laterality Volume 08/15/2018 Narrative [facility] - 08/15/2018 8:18 AM EST Procedure: ?Transthoracic Echocardiogram Patient: ?NATALYA GORMANRY Veda ? (Age): 1945(73y) Med Rec#: ? [id number] ?Sex: ?M ? Site Loc: ? [facility] ?Ht / Wt: ??172(cm)/81(kg) Pt. Loc: ?Echo Lab ?BSA: ?1.94 Study Date: ?? 08/15/2018 ?Pt. Type: Outpatient Tape: ? Referring: MARY ELLEN Reading: Scott Ortega ([id number]) Sharepoint Solutions Developer: Laura Sargent Diagnosis: *Chronic systolic (congestive) [...] E-wave Vmax ?1.2 ?m/sec ? MV deceleration vesl721.4 ? msec ? MV A-wave Vmax ?0.7 [...] ? Mid-Inferior ?Hypokinetic ? Mid-Inferoseptal ?Hypokinetic ? [place]-Septal ? Akinetic ? [place]-Anterior ? Hypokinetic ? [place]-Lateral ?Akinetic ? [place]-Inferior ? Hypokinetic ? [place]-Tip ?Akinetic ? This report has been electronically sign ed by: _ Scott Ortega M.D. ? 08/15/2018 08:17:26 Images reviewed and interpretation [facility] Cardiac Ultrasound Laboratory Procedure Note Scott Ortega MD - 08/15/2018Format ting of this note might be different from the original. Procedure: Transthoracic Echocardiogram Patient: NATALYA MCBRIDE(Age): [birth year]73y) Med Rec#: [id number] Sex: M Site Loc: [facility] Ht / Wt: 172(cm)/81(kg) Pt. Loc: Echo Lab BSA: 1.94 Study Date: 08/15/2018 Pt. Type: Outpati ent Tape: Referring: MARY ELLEN Reading: Scott Ortega ([id number]) Sharepoint Solutions Developer: Laura Sargent Diagnosis: *Chronic systolic (congestive) [...] MV E-wave Vmax 1.2 m/sec MV deceleration vmpj688.4 msec MV A-wave Vmax 0.7 m/sec MV [...] Akinetic Mid-Posterolateral Akinetic Mid-Inferior Hypokinetic Mid-Inferoseptal Hypokinetic [place]-Septal Akinetic [place]-Anterior Hypokinetic [place]-Lateral Akinetic [place]-Inferior Hypokinetic [place]-Tip Akinetic This report has been electronically sign ed by: _ Scott Ortega M.D. 08/15/2018 08:17: 26 Images reviewed and interpretation verif ied [facility] Cardiac Ultrasound Laboratory Danette A Orwell STACIE ECHO ORDERABLES Performing Organization Address City/State/ZIP [...] dose, Starting on Wed08/15/18 at 0756, Until Wed08/15/18 at 0730, Other, for enhancement of sub-optimal echo images, Echo Lab (Intra-Procedure), Routine documented in this encounter Care Teams Core Shaper Top Relationship Specialty Start Date End Date Lovely Vicente MD PCP - General 04/16/[address] [place] [address] documented as of this encounter
--- OUTSIDE RECORDS SUMMARY | 2022-02-20 01:41 | XMS_ITS | Encounter Summary ---
:1945 Author Organization [facility] [place] [address] Care Team Providers Name Role Phone Lovely Vicente MD Primary Care Provider Encounter Details Date Type Department Care Team Description 10/05/2017 Unscheduled Cardiology at [facility] RONNIE Sin PATIENT NOT SEEN Encounter [facility] Tamiko Martinez MD [facility] [address] CARDIOLOGY DEPT [phone] [place] [address] Social History Tobacco Use Types Packs/Day Years [...] Nobles MD [facility] [address] [place], [place] [address] (Wo rk) documented as of this encounter Visit Diagnoses Diagnosis DH PATIENT NOT SEEN documented in this encounter Care Teams Windows Deployment Technician Relationship Specialty Start Date End Date Lovely Vicente MD PCP - General 04/16/[address] [place] [address] documented as of this encounter
--- OUTSIDE RECORDS SUMMARY | 2022-02-20 01:41 | XMS_ITS | Encounter Summary ---
:1945 Author Organization [facility] [place] [address] Care Team Providers Name Role Phone Lovely Vicente MD Primary Care Provider Encounter Details Date Type Department Care Team Description 03/20/2021 Ancillary Procedure Radiology Library at [place] [address] [place] [address] [phone] Social History Tobacco Use Types Packs/Day Years [...] [facility] CARDIOLOGY [place], [place] [address] (Wo rk) documented as of [...] / Laterality Volume Narrative DH RAD - 03/20/2021 5:23 PM EDT This exam is auto-finalizing. It's purpo se is for storage only. Hugo Gaston MD IMG FILM LIBRARY ORDERABLES Performing Organization Address City/State/ZIP Code Phon e Number RAD [place], [place] documented in this encounter Visit Diagnoses Not on filedocumented in this encounter Care Teams Diver'S Tender Relationship Specialty Start Date End Date Lovely Vicente MD PCP - General 04/16/[address] [place] [address] documented as of this encounter
--- OUTSIDE RECORDS SUMMARY | 2022-02-20 01:41 | XMS_ITS | Encounter Summary ---
:1945 Author Organization [facility] Address [facility] [place] [address] Care Team Providers Name Role Phone Lovely Vicente MD Primary Care Provider Encounter Details Date Type Department Care Team Description 10/07/2017 Office Visit Cardiology at [facility] Danette Maxwell Chronic systolic heart failu re; [facility] A, PAYMENT ANALYST S/P CABG x 3; Drive [facility] On amiodarone therapy; [place], [place] Atrial fibrillation, unspecified type; [phone] CARDIOLOGY ASCVD (arteriosclerotic cardiovascular d isease) [phone] [place], [place] [address] Social History Tobacco Use [...] - documented in this encounter Progress [facility] [place] Danette A, PAYMENT ANALYST - 10/07/2017 11:20 AM EDT ID and [...] 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 [...] by Dr. Espino On IV antibiotics at [facility] Today: Mr. Fatima is accompanied by [...] continue to see Dr. Bains well at [facility] and follow his wound on his right lower extremity. And she will continue to direct antibiotic treatment. Ihave asked that the echocardiogram results be faxed to Dr. Zurita at [facility]. 1. ASCVD Continue ASA, BB and [...] and bone removal by Dr. Aguero at [facility]. Currently receiving IV antibiotics at [facility] ? Plan: 1. A review of [...] Cardiology Vitaliy Nobles MD [facility] ER DR [address] [place], [place] [address] (Wo rk) documented as of this encounter Results (ABNORMAL) Basic Metabolic Panel (non-fasting) (10/07/2017 8:48 AM EDT) athologist Signature Glucose Lvl 99 65 - 199 [facility] mg/dL [facility] Comment: Diabetes: >=200 mg/dL plus symp toms BUN 27 (H) 10 - 20 mg/dL [facility] Creatinine 1.07 0.80 - 1.50 mg/dL [facility] Sodium 143 135 - 145 [...] 15 mmol/L [facility] Calcium 8.4 (L) 8.5 - 10.5 mg/dL [facility] Estimated GFR >60 >=60 [facility] Comment: The reported eGFR should be multiplied b y 1.2 for patients. The MDRD is not an appropriate measure o f renal function for patients with body mass extremes or in patients with acute kidney failure. http://TopLog/DHnkdep http://TopLog/DHMCnkf Specimen Anatomical Collection Method Collection Time Receive d Time (Source) Location / / Volume Laterality Blood specimen 10/07/2017 8:48 AM 018 8:50 (specimen) EDT AM EDT Resulting Agency Comment Spec In Lab Danette Maxwell APRN CHEMISTRY ORDERABLES Performing Organization Address City/[facility]/[place] [address] (ABNORMAL) pro-Brain Natriuretic Peptide (10/07/2017 8:48 AM EDT) P athologist Signature ProBNP 1,170 (H) <=125 [facility] pg/mL [facility] Specimen Anatomical Collection Method Collection Time Receive d Time (Source) Location / / Volume Laterality Blood specimen 10/07/2017 8:48 AM 018 8:50 (specimen) EDT AM EDT Resulting Agency Comment Spec In Lab Danette Maxwell APRN CHEMISTRY ORDERABLES Performing Organization Address City/[facility]/[place] [address] documented in this encounter Visit Diagnoses Diagnosis Chronic systolic heart failure S/P CABG x 3 Postsurgical aortocoronary bypass status On amiodarone therapy Atrial fibrillation, unspecified type ASCVD (arteriosclerotic cardiovascular d isease) Unspecified cardiovascular disease documented in this encounter Care Teams Bookbinder Chief Relationship Specialty Start Date End Date Lovely Vicente MD PCP - General 04/16/[address] [place] [address] [address] [place] [address] documented as of this encounter
--- OUTSIDE RECORDS SUMMARY | 2022-02-20 01:41 | XMS_ITS | Encounter Summary ---
:1945 Author Organization [facility] [place] [address] Care Team Providers Name Role Phone Lovely Vicente MD Primary Care Provider Reason for Visit Reason Comments Follow-up Skin Check Encounter Details Date Type Department Care Team Description 01/06/2018 Office Visit Dermatology at Rigoberto Formantipmirna nevi; Abdelrahman HOOPER MD History of melanoma; [address] [facility] [place] [address] [facility] [place], [place] [address] Social History Tobacco Use Types [...] Dr. Garcia.: ARIANA MORRISON LPN I, Hudson Morfin, have performed the documentation for this encounter in the presence of and acting as a scribe for RIGOBERTO GARCIA III, MD. I performed the above scribed service and agree with the accuracy of the documentation in this encounter. Rigoberto Garcia MD Section of Dermatology [facility] documented in this encounter Plan of Treatment Upcoming Encounters Date Type Specialty Care Team Description 03/26/2022 Office Visit Cardiology Vitaliy Nobles MD [facility] ER DR CARDIOLOGY [place], [place] [address] (Wo rk) documented as of this encounter Visit Diagnoses Diagnosis Multiple nevi Benign neoplasm of skin, site unspecifie d History of melanoma Personal history of malignant melanoma o f skin Seborrheic keratosis Other seborrheic keratosis documented in this encounter Care Teams Back Padder Relationship Specialty Start Date End Date Lovely Vicente MD PCP - General 04/16/[address] [place] [address] documented as of this encounter
--- OUTSIDE RECORDS SUMMARY | 2022-02-20 01:41 | XMS_ITS | Encounter Summary ---
:1945 Author Organization [facility] [place] [address] Care Team Providers Name Role Phone Lovely Vicente MD Primary Care Provider Encounter Details Date Type Department Care Team Description 11/29/2017 Laboratory Lab 3L Barbara Wiseman systoli c congestive heart failure; Appointment [facility] ASCVD (ar teriosclerotic cardiovascular disease); Hospital Cardiomyopathy, [place] [address] Social History Tobacco Use Types [...] Vitaliy Nobles MD [facility] ER CARDIOLOGY [place], [place] [address] (Wo rk) documented as of [...] Signature PT 23.0 (H) 9.4 - 12.5 [facility] LABORATORY INR 2.1 [facility] Comment: An INR [...] Organization Address City/State/[place] [address] (ABNORMAL) Basic Metabolic Panel (non-fasting) (11/29/2017 8:22 AM EDT) P athologist Signature Glucose Lvl 217 (H) 65 - 199 [facility] mg/dL [facility] Comment: Diabetes: >=200 mg/dL plus symp toms BUN 26 (H) 10 - 20 mg/dL [facility] Creatinine 0.96 0.80 - 1.50 mg/dL [facility] Sodium 137 135 - 145 mmol/L [facility] Potassium 4.1 3.5 - 5.0 mmol/L [facility] Comment: Please note: ??Patients with WBC >100,00 0 may have falsely elevated Potassium levels. ??For accurate Potassium quantif ication in these patients send serum separator tube (gold top) for subsequent determinations. ??Contact the Clinical Chemistry Laboratory if there are any qu estions. Chloride 97 (L) 98 - 107 mmol/L [facility] CO2 23 22 - 31 mmol/L [facility] Anion Gap 17 (H) 5 - 15 mmol/L [facility] Calcium 8.5 8.5 - 10.5 mg/dL [facility] Estimated GFR >60 >=60 [facility] Comment: The reported eGFR should be multiplied b y 1.2 for patients. The MDRD is not an appropriate measure o f renal function for patients with body mass extremes or in patients with acute kidney failure. http://The Author Hub/DHnkdep http://The Author Hub/DHMCnkf Specimen Anatomical Collection Method Collection Time Receive d Time (Source) Location / / Volume Laterality Blood specimen 11/29/2017 8:22 AM 018 8:29 (specimen) EDT AM EDT Resulting Agency Comment Spec In Lab Danette Maxwell APRN CHEMISTRY ORDERABLES Performing Organization Address City/[facility]/[place] [address] (ABNORMAL) pro-Brain Natriuretic Peptide (11/29/2017 8:22 AM EDT) P athologist Signature ProBNP 1,769 (H) <=125 [facility] RYAN pg/mL [facility] Specimen Anatomical Collection Method Collection Time Receive d Time (Source) Location / / Volume Laterality Blood specimen 11/29/2017 8:22 AM 018 8:29 (specimen) EDT AM EDT Resulting Agency Comment Spec In Lab Danette Maxwell APRN CHEMISTRY ORDERABLES Performing Organization Address City/State/[place] [address] Lavender Tube HOLD (11/29/2017 8:14 AM EDT) [facility] Method Time Signature Lavender Hold Sample in [facility] lab. [facility] Specimen Anatomical Collection Method Collection Time Receive d Time (Source) Location / / Volume Laterality Blood specimen No Charge / 11/29/2017 8:14 AM 018 8:29 (specimen) Unknown EDT AM EDT Lovely Vicente MD HEMATOLOGY ORDERABLES Performing Organization Address City/State/ZIP Code Phon e Number [place] [id number] documented in this encounter Visit Diagnoses Diagnosis Chronic systolic congestive heart failur e Chronic systolic heart failure ASCVD (arteriosclerotic cardiovascular d isease) Unspecified cardiovascular disease Cardiomyopathy, ischemic Other specified forms of chronic ischemi c heart disease documented in this encounter Care Teams Medical Biller Coder Relationship Specialty Start Date End Date Lovely Vicente MD PCP - General 04/16/[address] [place] [address] documented as of this encounter
--- OUTSIDE RECORDS SUMMARY | 2022-02-20 01:41 | XMS_ITS | Encounter Summary ---
:1945 Author Organization [facility] [place] [address] Care Team Providers Name Role Phone Lovely Vicente MD Primary Care Provider Reason for Visit Reason Comments Skin Check Encounter Details Date Type Department Care Team Description 07/06/2018 Office Visit Dermatology at Selina Garcia, Rigoberto Yarbrough (actinic keratosis); MD SHAY Quick III (seborrheic keratosis); [address] [facility] History of melanoma; [place] [address] Skin exam for malignant neoplasm [phone] [facility] [place], [place] [address] Social History Tobacco Use Types [...] leg - he had vascular surgery in [facility] while he lost several toes, they saved [...] Garcia MD Section of Dermatology [facility] documented in this encounter Plan of Treatment Upcoming Encounters Date Type Specialty Care Team Description 03/26/2022 Office Visit Cardiology Vitaliy Nobles MD [facility] ER DR CARDIOLOGY [place] [address] (Wo rk) documented as of this encounter Visit Diagnoses Diagnosis AK (actinic keratosis) Actinic keratosis [place] (seborrheic keratosis) Other seborrheic keratosis History of melanoma Personal history of malignant melanoma o f skin Skin exam for malignant neoplasm Screening for malignant neoplasm of the skin documented in this encounter Care Teams Chief Minister Relationship Specialty Start Date End Date Lovely Vicente MD PCP - General 04/16/[address] [place] [address] [address] [place] [address] documented as of this encounter
--- OUTSIDE RECORDS SUMMARY | 2022-02-20 01:41 | XMS_ITS | Encounter Summary ---
:1945 Author Organization [facility] [place] [address] Care Team Providers Name Role Phone Lovely Vicente MD Primary Care Provider Reason for Referral Diagnostic Test (Routine) - Closed Specialty Diagnoses / Procedures Referred By Contact Refer red To Contact Cardiology Diagnoses Ischemic cardiomyopathy Acute on chronic systolic congestive heart failure Danette Maxwell APRN [facility] Non-Inv Card Lab Procedures Echocardiogram Transthoracic(Leb) [place] [address] [place] [address] Referral ID Status Reason Start Date Expiration Date Visits V isits Requested Authorized [id number] Closed Specialty 08/30/2017 08/30/2018 1 1 Service Requested Reason for Visit Diagnostic Test (Routine) - Closed Specialty Diagnoses / Procedures Referred By Contact Refer red To Contact Cardiology Diagnoses Ischemic cardiomyopathy Acute on chronic systolic congestive heart failure Danette Maxwell APRN [facility] Non-Inv Card Lab Procedures Echocardiogram Transthoracic(Leb) [place] [address] [place] [address] Referral ID Status Reason Start Date Expiration Date Visits V isits Requested Authorized [id number] Closed Specialty 08/30/2017 08/30/2018 1 1 Service Requested Encounter Details Date Type Department Care Team Description 10/07/2017 Hospital Encounter Non-Invasive Ischemic cardiomyopathy; Cardiology Lab Barbara Craig on chronic systolic [place] [address] Social History Tobacco Use Types Packs/Day [...] Cardiology Vitaliy Nobles MD [facility] ER CARDIOLOGY [place], [place] [address] (Wo rk) documented as of this [...] Mccollum ? (Age): 1945(72y) Med Rec#: ? [id number] ?Sex: ?M ? Site Loc: ? [facility] ?Ht / Wt: ??173(cm)/82(kg) Pt. Loc: ?Echo Lab ?BSA: ?1.96 Study Date: ?? 10/07/2017 ?Pt. Type: Outpatient Tape: ? Referring: Danette Maxwell Reading: Iker Cuevas ([id number]) Transition Manager: Yonathan Bocanegra Diagnosis: *ICD-10-PCS Ischemic cardiomyopathy [...] E-wave Vmax ?1.2 ?m/sec ? MV deceleration [id number] ?msec ? MV A-wave Vmax ?1 ?m/sec [...] ? Mid-Inferior ?Hypokinetic ? Mid-Inferoseptal ?Hypokinetic ? [place]-Septal ? Akinetic ? [place]-Anterior ? Hypokinetic ? [place]-Lateral ?Hypokinetic ? [place]-Inferior ? Hypokinetic ? [place]-Tip ?Akinetic ? This report has been electronically sign ed by: _ Iker Cuevas M.D. ? 10/07/2017 11:12:34 Images reviewed and interpretation verif ied [facility] Procedure Note Iker Cuevas MD - 10/07/2017Formatti ng of this note might be different from the original. Procedure: Transthoracic Echocardiogram Patient: NATALYA MCBRIDE(Age): [birth year]72y) Med Rec#: [id number] Sex: M [place] [facility] [facility] Ht / Wt: 173(cm)/82(kg) Pt. Loc: Echo Lab BSA: 1.96 Study Date: 10/07/2017 Pt. Type: Outpati ent Tape: Referring: Danette Maxwell Reading: Iker Cuevas ([id number]) Transition Manager: Yonathan Bocanegra Diagnosis: *ICD-10-PCS Ischemic cardiomyopathy [...] MV E-wave Vmax 1.2 m/sec MV deceleration [id number] msec MV A-wave Vmax 1 m/sec MV [...] Akinetic Mid-Posterolateral Hypokinetic Mid-Inferior Hypokinetic Mid-Inferoseptal Hypokinetic [place]-Septal Akinetic [place]-Anterior Hypokinetic [place]-Lateral Hypokinetic [place]-Inferior Hypokinetic [place]-Tip Akinetic This report has been electronically sign ed by: Celi Cuevas M.D. 10/07/2017 11:12 :34 Images reviewed and interpretation elvie hwang [facility] Danette Maxwell STACIE ECHO ORDERABLES Performing Organization Address City/State/ZIP [...] Routine documented in this encounter Care Teams Typewriter Assembler Relationship Specialty Start Date End Date Lovely Vicente MD PCP - General 04/16/[address] [place] [address] documented as of this encounter
--- OUTSIDE RECORDS SUMMARY | 2022-02-20 01:41 | XMS_ITS | Encounter Summary ---
:1945 Author Organization [facility] [place] [address] Care Team Providers Name Role Phone Lovely Vicente MD Primary Care Provider Encounter Details Date Type Department Care Team Description 02/19/2020 Telephone Dermatology at [facility] Ariana Wilder LPN [address] [place] [address] Social History Tobacco Use Types Packs/Day [...] Nobles MD [facility] ER CARDIOLOGY [place], [place] [address] (Wo rk) documented as of this encounter Visit Diagnoses Not on filedocumented in this encounter Care Teams Forestry Instructor Relationship Specialty Start Date End Date Lovely Vicente MD PCP - General 04/16/[address] [place] [address] documented as of this encounter
--- OUTSIDE RECORDS SUMMARY | 2022-02-20 01:41 | XMS_ITS | Encounter Summary ---
:1945 Author Organization [place] [address] Care Team Providers Name Role Phone Lovely Vicente MD Primary Care Provider Encounter Details Date Type Department Care Team Description 11/29/2017 Hospital Encounter Vascular Lab at Janett Walter PAD (peripheral [facility], RVT artery [facility]) [place] [address] Social History Tobacco Use Types Packs/Day Years [...] Nobles MD [facility] ER CARDIOLOGY [place], [place] [address] (Wo rk) documented [...] Component Value Ref Test Analysis Performed At [facility] Range Method Time Signature VB Text Department: Vascular Surgery Lab VASCUBASE Report Patient: [id number] (DON HOANG) CPT: 99054 ICD10: I72.4;I73.9 Referring Physician: DANETTE MAXWELL ?? [...] unspecified documented in this encounter Care Teams Frozen Food Selector Relationship Specialty Start Date End Date Lovely Vicente MD PCP - General 04/16/[address] [facility] [address] [place] [address] documented as of this encounter
--- OUTSIDE RECORDS SUMMARY | 2022-02-20 01:41 | XMS_ITS | Encounter Summary ---
:1945 Author Organization [facility] [place] [address] Care Team Providers Name Role Phone Lovely Vicente MD Primary Care Provider Reason for Visit Reason Onset Date Comments Follow-up 07/13/2018 amiodarone discontin ued Encounter Details Date Type Department Care Team Description 07/13/2018 Telephone [place] [place] [facility] [place] Comer, Follow-up (amiodarone [facility] RN discontin ued) [place] [address] Social History Tobacco Use Types Packs/Day [...] RN - 07/13/2018 8:57 AM EST Per STOCK PREPARATION SUPERVISOR Hans call placed to the home number for the pt. confirmed that the pt is still taking the amiodarone. Pt is to stop the amiodarone. Pt taking it for post op a-fib, therapy was supposed to be for 30 days. Message given to his . She will give him the message and will have him call with any questions. Call placed to the [facility] pharmacy in [place] to discontinue it there as well. Med list updated. documented in this encounter Plan of Treatment Upcoming Encounters Date Type Specialty Care Team Description 03/26/2022 Office Visit Cardiology Vitaliy Nobles MD [facility] ER CARDIOLOGY [place], [place] [address] (Wo rk) documented as of this encounter Visit Diagnoses Not on filedocumented in this encounter Care Teams Bun Machine Operator Relationship Specialty Start Date End Date Lovely Vicente MD PCP - General 04/16/[address] [place] [address] documented as of this encounter
--- OUTSIDE RECORDS SUMMARY | 2022-02-20 01:41 | XMS_ITS | Encounter Summary ---
:1945 Author Organization [facility] [place] [address] Care Team Providers Name Role Phone Lovely Vicente MD Primary Care Provider Reason for Visit Reason Onset Date Comments Other 11/11/2017 Please call [facility] Encounter Details Date Type Department Care Team Description 11/11/2017 Telephone Cardiology [place] [facility] Danette Maxwell, Other (Please call [facility] SILK SCREEN PAINTER [facility] ) [place] [address] CARDIOLOGY [place], [place] [address] (Wo rk) Social History Tobacco [...] Vitaliy Nobles MD [facility] ER CARDIOLOGY [place], [place] [address] (Wo rk) documented as of this encounter Visit Diagnoses Not on filedocumented in this encounter Care Teams Finance Administrator Relationship Specialty Start Date End Date Lovely Vicente MD PCP - General 04/16/[address] [place] [address] documented as of this encounter
--- OUTSIDE RECORDS SUMMARY | 2022-02-20 01:41 | XMS_ITS | Encounter Summary ---
:1945 [place] [address] Care Team Providers Name Role Phone Lovely Vicente MD Primary Care Provider Reason for Visit Reason Comments Skin Cancer Examination Encounter Details Date Type Department Care Team Description 03/20/2021 Office Visit Dermatology at [facility] Brennen Rene MD History of melanoma; [facility] History of dysplastic nevus; [address] Multiple benign nevi; [place] [address] [facility] [place] (seborrheic keratosis); [phone]DER[facility]OLOGY [place] (actinic keratosis) [place], [place] [address] Social History Tobacco Use Types [...] no SOCIAL HISTORY 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 Reviewed and signed by: LAURA RENE MD Dermatology [facility] documented in this encounter Plan of Treatment Upcoming Encounters Date Type Specialty Care Team Description 03/26/2022 Office Visit Cardiology Vitaliy Nobles MD [facility] CARDIOLOGY [place], [place] [address] (Wo rk) [...] keratosis documented in this encounter Care Teams Store Coordinator Relationship Specialty Start Date End Date Lovely Vicente MD PCP - General 04/16/[address] [place] [address] documented as of this encounter
--- OUTSIDE RECORDS SUMMARY | 2022-02-20 01:41 | XMS_ITS | Encounter Summary ---
:1945 Author Organization [facility] [place] [address] Care Team Providers Name Role Phone Lovely Vicente MD Primary Care Provider Encounter Details Date Type Department Care Team Description 10/05/2017 Telephone Cardiology at [facility] Tamiko Sin MD [facility] [place] [address] CARDIOLOGY DEPT [phone] [place], [place] [address] (Wo rk) Social History Tobacco [...] MD [facility] ER [address] [place], [place] [address] (Wo rk) documented as of this encounter Visit Diagnoses Not on filedocumented in this encounter Care Teams Director Of Brand Marketing Relationship Specialty Start Date End Date Lovely Vicente MD PCP - General 04/16/[address] [place] [address] documented as of this encounter
--- OUTSIDE RECORDS SUMMARY | 2022-02-20 01:41 | XMS_ITS | Encounter Summary ---
:1945 [place] [address] Care Team Providers Name Role Phone Lovely Vicente MD Primary Care Provider Encounter Details Date Type Department Care Team Description 08/15/2018 Laboratory Appointment Lab [address] [place] [address] Social History Tobacco Use Types Packs/Day [...] [facility] ER CARDIOLOGY [place], [place] [address] (Wo rk) documented as of this encounter Procedures Procedure Name Priority Date/Time Associated Diagnosis Comme nts PROTHROMBIN TIME Routine 08/15/2018 8:04 AM Resul ts for this EST procedure are i n the results section. documented in this encounter Results (ABNORMAL) Prothrombin Time (08/15/2018 8:04 AM EST) P athologist Signature PT 24.0 (H) 9.4 - 12.5 [facility] LABORATORY INR 2.1 [facility] LABORATORY [...] City/State/ZIP Code Phon e Number [place] [phone] documented in this encounter Visit Diagnoses Not on filedocumented in this encounter Care Teams Improvement Analyst Relationship Specialty Start Date End Date Lovely Vicente MD PCP - General 04/16/[address] [place] [address] documented as of this encounter
--- OUTSIDE RECORDS SUMMARY | 2022-02-20 01:41 | XMS_ITS | Encounter Summary ---
:1945 Author Organization [facility] [place] [address] Care Team Providers Name Role Phone Lovely Vicente MD Primary Care Provider Encounter Details Date Type Department Care Team Description 01/16/2019 Laboratory Appointment Lab 3L [facility] systolic [facility] [place] [phone] Social History Tobacco Use Types Packs/Day Years [...] Vitaliy Nobles MD [facility] ER CARDIOLOGY [place], [place] [address] (Wo rk) documented as of [...] Hans STACIE CHEMISTRY ORDERABLES Performing Organization Address City/State/[place] [address] (ABNORMAL) Basic Metabolic Panel (non-fasting) (01/16/2019 7:49 AM EDT) athologist Signature Glucose Lvl 105 65 - 199 [facility] mg/dL [facility] LABORATORY Comment: Diabetes: >=200 mg/dL plus symp toms BUN 25 (H) 10 - 20 mg/dL [facility] LABORATORY Creatinine 1.08 0.80 - 1.50 mg/dL [facility] LABORATORY Sodium 145 135 - 145 mmol/L [facility] LABOR[facility]ORY Potassium 4.7 3.5 - 5.0 mmol/L [facility] [...] mmol/L [facility] LABOR[facility]ORY Calcium 9.2 8.5 - 10.5 mg/dL [facility] LABOR[facility]ORY Estimated GFR 68 >=60 mL/min/1.73 m?? [facility] LAB[facility] Comment: The eGFR was calculated using the CKD-EP I equation. As with all creatinine based estimates of kidney function, eGFR values calculated with the CKD-EPI equation are not accurate in patients wi th acute kidney failure, extremes of body mass or the acutely ill. [email or web address] ARDMOREnkf eGFR 79 >=60 mL/min/1.73 m?? [facility] Comment: The eGFR was calculated using the CKD-EP I equation. As with all creatinine based estimates of kidney function, eGFR values calculated with the CKD-EPI equation are not accurate in patients wi th acute kidney failure, extremes of body mass or the acutely ill. [email or web address]/[facility]OR[facility] Specimen Anatomical Collection Method Collection Time Receive d Time (Source) Location / / Volume Laterality Blood specimen 01/16/2019 7:49 AM 019 7:55 (specimen) EDT AM EDT Resulting Agency Comment Spec In Lab Danette Maxwell APRN CHEMISTRY ORDERABLES Performing Organization Address City/State/[place] [address] documented in this encounter Visit Diagnoses Diagnosis Chronic systolic heart failure documented in this encounter Care Teams Dining Car Server Relationship Specialty Start Date End Date Lovely Vicente MD PCP - General 04/16/[address] [place] [address] documented as of this encounter
--- OUTSIDE RECORDS SUMMARY | 2022-02-20 01:41 | XMS_ITS | Encounter Summary ---
:1945 Author Organization [facility] [place] [address] Care Team Providers Name Role Phone Lovely Vicente MD Primary Care Provider Encounter Details Date Type Department Care Team Description 07/28/2019 Office Visit Cardiology at [facility] Danette Maxwell Chronic systolic heart failu re; [facility] A, STACIE ASHD (arteriosclerotic heart disease); Drive [facility] S/P CABG x 3; [place], [place] MARIA VICTORIA (obstructive sleep apnea) on CPAP; [phone] CARDIOLOGY Mixed hyperlipidemia [phone] [place], [place] [address] Social History Tobacco Use Types [...] in this encounter Progress Notes Danette Maxwell, COMMUNITY NURSE - 07/28/2019 9:40 AM EST Images from [...] regurgitation present. 07/07/2019 - 07/21/2019 Zio Patch Bone Grinder The patient had a minimum heart rate [...] K+ 4.5 today 6. Post-op atrial fibrillation [id number] (CHF, HTN, DM, vascular disease, thromboembolism) Amiodarone discontinued Continue coumadin INR managed by PCP 7. PAD 08/06/2017: Right 1st, 2nd, 3rd toe amputation 08/11/2017: Left??femoral arterial access, RLE??angiogram, Balloon angioplasty of R PT with Eleazar 2.5 x 80 10/25/2017: right popliteal-pedal bypass at [facility] 8. Hypothyrodism S/p thyroidectomy for goiter Continue [...] advised: Refer to EP (Dr. Mcelroy in [place]) 5. Heart Failure Clinic follow up scheduled for: 3 months with proBNP and BMP Danette Maxwell APRN 07/28/2019 documented in this encounter Plan of Treatment Upcoming Encounters Date Type Specialty Care Team Description 03/26/2022 Office Visit Cardiology Vitaliy Nobles MD [facility] ER CARDIOLOGY [place], [place] [address] (Wo rk) documented as of this encounter Results (ABNORMAL) Basic Metabolic Panel (non-fasting) (07/28/2019 8:36 AM EST) athologist Signature Glucose Lvl 153 65 - 199 [facility] mg/dL [facility] LAB[facility] Comment: Diabetes: >=200 mg/dL plus symp toms BUN 22 (H) 10 - 20 mg/dL [facility] Creatinine 1.05 0.80 - 1.50 [...] 107 mmol/L [facility] CO2 29 22 - 31 mmol/L [facility] Anion Gap 12 5 - 15 mmol/L [facility]ORY Calcium 9.3 8.5 - 10.5 mg/dL [facility] LABORATORY Estimated GFR 70 >=60 mL/min/1.73 m?? [facility] Comment: The eGFR was calculated using the CKD-EP I equation. As with all creatinine based estimates of kidney function, eGFR values calculated with the CKD-EPI equation are not accurate in patients wi th acute kidney failure, extremes of body mass or the acutely ill. [email or web address]/[facility]MCnkf eGFR 81 >=60 mL/min/1.73 m?? [facility] Comment: The eGFR was calculated using the CKD-EP I equation. As with all creatinine based estimates of kidney function, eGFR values calculated with the CKD-EPI equation are not accurate in patients wi th acute kidney failure, extremes of body mass or the acutely ill. [email or web address] Specimen Anatomical Collection Method Collection Time Receive d Time (Source) Location / / Volume Laterality Blood specimen 07/28/2019 8:36 AM 020 8:46 (specimen) EST AM EST Resulting Agency Comment Spec In Lab Danette Gomes Hans STACIE CHEMISTRY ORDERABLES Performing Organization Address City/[facility]/[place]IP [place] [address] (ABNORMAL) pro-Brain Natriuretic Peptide (07/28/2019 8:36 AM EST) P athologist Signature ProBNP 647 (H) <=125 pg/mL [facility] Specimen Anatomical Collection Method Collection Time Receive d Time (Source) Location / / Volume Laterality Blood specimen 07/28/2019 8:36 AM 020 8:46 (specimen) EST AM EST Resulting Agency Comment Spec In Lab Danette Eliseo Hans QUINONES CHEMISTRY ORDERABLES Performing Organization Address City/[facility]/ZIP [facility] [place] [address] documented in this encounter Visit Diagnoses Diagnosis Chronic systolic heart failure ASHD (arteriosclerotic heart disease) Coronary atherosclerosis of unspecified type of vessel, capitan grande band or graft S/P CABG x 3 Postsurgical aortocoronary bypass status MARIA VICTORIA (obstructive sleep apnea) on CPAP Obstructive sleep apnea (adult) (pediatr ic) Mixed hyperlipidemia documented in this encounter Care Teams Potato Spotter Relationship Specialty Start Date End Date Lovely Vicente MD PCP - General 04/16/[address] [place] [address] documented as of this encounter
--- OUTSIDE RECORDS SUMMARY | 2022-02-20 01:41 | XMS_ITS | Encounter Summary ---
:1945 [place] [address] Care Team Providers Name Role Phone Lovely Vicente MD Primary Care Provider Encounter Details Date Type Department Care Team Description 04/16/2021 Office Visit Cardiology at [facility] Liz Poole, Chronic systolic heart [facility] [place] [address] Cardiology Dept [phone] [place], [place] [address] Social History Tobacco Use Types [...] was feeling good. 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 07/07/2019 - 07/21/2019 Zio Patch Preventive Medicine Officer The patient had a minimum heart rate [...] K+ 5.2 today 6. Post-op atrial fibrillation [id number] 7 (CHF, HTN, DM, vascular disease, thromboembolism) On warfarin - recent labile INR Will discuss with PCP, option of Luis Daniel 7. PAD 08/06/2017: Right 1st, 2nd, 3rd toe amputation 08/11/2017: Left??femoral arterial access, RLE??angiogram, Balloon angioplasty of R PT 10/25/2017: right [place] bypass [place] [...] Visit Cardiology Vitaliy Nobles MD [facility] ER CARDIOLOGY [place], [place] [address] (Wo rk) documented as of this encounter Results (ABNORMAL) Basic Metabolic Panel (non-fasting) (04/16/2021 9:58 AM EDT) P athologist Signature Glucose Lvl 77 65 - 199 [facility] mg/dL [facility] LABORATORY Comment: Diabetes: >=200 mg/dL plus symp toms BUN 23 (H) 10 - 20 mg/dL [facility]OR[facility] Creatinine 1.26 0.80 - 1.50 [...] Anion Gap 9 5 - 15 mmol/L [facility] Calcium 9.3 8.5 - 10.5 [...] Address City/State/[place] [address] (ABNORMAL) pro-Brain Natriuretic Peptide [...] Address City/State/[place] [address] documented in this encounter Visit Diagnoses Diagnosis Chronic systolic heart failure documented in this encounter Care Teams Neon Glass Bender Relationship Specialty Start Date End Date Lovely Vicente MD PCP - General 04/16/[address] [place] [address] documented as of this encounter
--- OUTSIDE RECORDS SUMMARY | 2022-02-20 01:41 | XMS_ITS | Encounter Summary ---
:1945 [place] [address] Care Team Providers Name Role Phone Lovely Vicente MD Primary Care Provider Encounter Details Date Type Department Care Team Description 03/20/2021 Telephone Neurology at [facility] Hugo Gaston MD [facility] [place] [address] [place] [address] [phone] (Wo rk) Social History Tobacco Use Types [...] Gaston MD Department of Neurology Pager # [phone] documented in this encounter Plan of Treatment Upcoming Encounters Date Type Specialty Care Team Description 03/26/2022 Office Visit Cardiology Vitaliy Nobles MD [facility] ER CARDIOLOGY [place], [place] [address] (Wo rk) documented as of this encounter Visit Diagnoses Not on filedocumented in this encounter Care Teams Upsetter Relationship Specialty Start Date End Date Lovely Vicente MD PCP - General 04/16/[address] [place] [address] documented as of this encounter
--- OUTSIDE RECORDS SUMMARY | 2022-02-20 01:41 | XMS_ITS | Encounter Summary ---
:1945 [place] [address] Care Team Providers Name Role Phone Lovely Vicente MD Primary Care Provider Encounter Details Date Type Department Care Team Description 11/29/2017 Hospital Encounter Radiology Library at Estefany Maxwell Pain [facility] EMPLOYMENT ADVISOR [facility] [place] [address] CARDIOLOGY [phone] [place], [place] [address] (Wo rk) Social History Tobacco [...] Visit Cardiology Vitaliy Nobles MD [facility] ER CARDIOLOGY [place], [place] [address] (Wo rk) [...] Time / Laterality Volume Narrative MAGDA - 12/28/2017 11:07 AM EDT This exam is for storage only and is aut o-finalizing. Danette Maxwell APRN IMMarc FILM LIBRARY ORDERABLES Performing Organization Address City/State/ZIP Code Phon e Number [place], [place] documented in this encounter Visit Diagnoses Diagnosis Pain Generalized pain documented in this encounter Care Teams Senior Java J2Ee Developer Relationship Specialty Start Date End Date Lovely Vicente MD PCP - General 04/16/[address] [place] [address] documented as of this encounter
--- OUTSIDE RECORDS SUMMARY | 2022-02-20 01:41 | XMS_ITS | Encounter Summary ---
:1945 Author Organization [facility] [place] [address] Care Team Providers Name Role Phone Lovely Vicente MD Primary Care Provider Encounter Details Date Type Department Care Team Description 11/29/2017 Office Visit Cardiology at [facility] Danette Maxwell Chronic systolic congestive heart failure; [facility] A, COLOR MIXER ASCVD (arteriosclerotic cardiovascular d isease); [facility] Cardiomyopathy, ischemic; [place], [place] PAD (peripheral artery disease) [address] CARDIOLOGY [phone] [place], [place] [address] Social History Tobacco Use Types [...] in this encounter Progress Notes Danette Maxwell, COLOR MIXER - 11/29/2017 9:20 AM EDT ID and CC: Don Hoang is a 72 y.o. 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 [...] using left greater saphenous vein (done at [facility]), debridement of right foot with wound vac [...] 80 10/25/2017: right popliteal-pedal bypass at [facility] ? Plan: 1. A review of [...] Failure Clinic follow up scheduled for: March Danette Maxwell APRN 11/29/2017 documented in this encounter Plan of Treatment Upcoming Encounters Date Type Specialty Care Team Description 03/26/2022 Office Visit Cardiology Vitaliy Nobles MD [facility] ER DR TADEO [place], [place] [address] (Wo rk) documented as of this encounter Results Arterial Duplex Leg, Unil (11/29/2017 10:32 AM EDT) Component Value Ref Test Analysis Performed At [facility] gist Range Method Time Signature VB Text Department: Vascular Surgery Lab VASCUBASE Report Patient: [id number] (DON HOANG) CPT: 85458 ICD10: I72.4;I73.9 Referring Physician: DANETTE MAXWELL ?? [...] Glucose Lvl 217 (H) 65 - 199 [facility] mg/dL [facility] Comment: Diabetes: >=200 mg/dL plus symp toms BUN 26 (H) 10 - 20 mg/dL [facility] Creatinine 0.96 0.80 - 1.50 mg/dL [facility] Sodium 137 135 - 145 mmol/L [facility] Potassium 4.1 3.5 - 5.0 mmol/L [facility] Comment: Please note: ??Patients with WBC >100,00 0 may have falsely elevated Potassium levels. ??For accurate Potassium quantif ication in these patients send serum separator tube (gold top) for subsequent determinations. ??Contact the Clinical Chemistry Laboratory if there are any qu estions. Chloride 97 (L) 98 - 107 mmol/L [facility] CO2 23 22 - 31 mmol/L [facility] Anion Gap 17 (H) 5 - 15 mmol/L [facility] Calcium 8.5 8.5 - 10.5 mg/dL [facility] Estimated GFR >60 >=60 [facility] Comment: The reported eGFR should be multiplied b y 1.2 for patients. The MDRD is not an appropriate measure o f renal function for patients with body mass extremes or in patients with acute kidney failure. http://PLAXD.Carrier IQ/DHnkdep http://mydeco/DHMCnkf Specimen Anatomical Collection Method Collection Time Receive d Time (Source) Location / / Volume Laterality Blood specimen 11/29/2017 8:22 AM 018 8:29 (specimen) EDT AM EDT Resulting Agency Comment Spec In Lab Danette Maxwell APRN CHEMISTRY ORDERABLES Performing Organization Address City/State/[place] [address] (ABNORMAL) pro-Brain Natriuretic Peptide (11/29/2017 8:22 AM EDT) P athologist Signature ProBNP 1,769 (H) <=125 [facility] pg/mL [facility] Specimen Anatomical Collection Method Collection Time Receive d Time (Source) Location / / Volume Laterality Blood specimen 11/29/2017 8:22 AM 018 8:29 (specimen) EDT AM EDT Resulting Agency Comment Spec In Lab Danette Maxwell COLOR MIXER CHEMISTRY ORDERABLES Performing Organization Address City/State/ZIP Code Phon e Number [place] [phone] documented in this encounter Visit Diagnoses Diagnosis Chronic systolic congestive heart failur e Chronic systolic heart failure ASCVD (arteriosclerotic cardiovascular d isease) Unspecified cardiovascular disease Cardiomyopathy, ischemic Other specified forms of chronic ischemi c heart disease PAD (peripheral artery disease) Peripheral vascular disease, unspecified documented in this encounter Care Teams Injection Molding Machine Setter Relationship Specialty Start Date End Date Lovely Vicente MD PCP - General 04/16/[address] [place] [address] documented as of this encounter
--- OUTSIDE RECORDS SUMMARY | 2022-02-20 01:41 | XMS_ITS | Encounter Summary ---
:1945 Author Organization [facility] [place] [address] Care Team Providers Name Role Phone Lovely Vicente MD Primary Care Provider Encounter Details Date Type Department Care Team Description 03/20/2021 Ancillary Procedure Radiology Library [place] [address] [place] [address] [phone] Social History Tobacco Use Types Packs/Day Years [...] 03/26/2022 Office Visit Cardiology Vitaliy Nobles MD [facility] CARDIOLOGY [place], [place] [address] (Wo rk) documented as of [...] Organization Address City/State/ZIP Code Phon e Number [place], [place] documented in this encounter Visit Diagnoses Not on filedocumented in this encounter Care Teams Cargo Service Agent Relationship Specialty Start Date End Date Lovely Vicente MD PCP - General 04/16/[address] [place] [address] documented as of this encounter
--- OUTSIDE RECORDS SUMMARY | 2022-02-20 01:41 | XMS_ITS | Encounter Summary ---
:1945 Author Organization [facility] [place] [address] Care Team Providers Name Role Phone Lovely Vicente MD Primary Care Provider Reason for Visit Reason Comments Establish Care Atrial Fibrillation Congestive Heart Failure Cardiomyopathy Encounter Details Date Type Department Care Team Description 09/06/2019 [facility] Ischemic cardiomyopathy Osvaldo STRANGE [address] [place], [place] CARDIOLOGY DEPT. [address] [place] [address] [phone] Social History Tobacco Use Types Packs/Day Years [...] today For any questions, call my office: [phone] To access your health care information, go to the web at: [email or web address] (you will need to register) For educational materials: [email or web address] Karel TRAMMELL.[facility], Clinical Cardiac Electrophysiology, [facility], [facility] A Healthy Heart: After Your [...] least 2 servings of fish a week. [place], mackerel, mcfadden, sardines, and chunk light tuna [...] irregular heartbeat. After you call 911, the snack foods mixer operator may tell you to chew 1 [...] more? Visit our health information library at [email or web address]. You can also view health information on [employer], your personal patient account. Log in or sign up today. Enter F075 in the search box to learn more about A Healthy Heart: After Your Visit. ?? [id number] [employer] documented in this encounter Progress Notes Karel Mcelroy MD - 09/06/2019 2:20 PM EST Images from the original note were not included. Section of Cardiology/Cardiac Electrophysiology [facility] Clinical Cardiac Electrophysiology Consult Patient ID Don Fatima 1945 [id number] Don Fatima is referred to the EP clinic by Danette Maxwell APRN PhD Chief Complaint Dyspnea on exertion Ischemic cardiomyopathy History This is a 74 y.o. male following up/being seen in clinic for evaluation for ongoing anticoagulation. He has a Lzjgu4Hiqa score of ~ 6-7. 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, can [...] on phone: None Gets together: None Attends restoration service: None Active member of club or [...] reviewed the ECG: sinus rhythm, 72 bpm, CT 140 ms, QRS 100 ms, QT 400 [...] EP clinic KAREL MCELROY MD Cardiac Electrophysiology [facility] T: [phone] F: [phone] minutes of this 40 minute encounter were spent in counselling, as described above Cc: MD Danette Cr APRN PhD Janett Espino DPM documented in this encounter Plan of Treatment Upcoming Encounters Date Type Specialty Care Team Description 03/26/2022 Office Visit Cardiology Vitaliy Nobles MD [facility] ER DR CARDIOLOGY [place], [place] [address] (Wo rk) documented as of [...] 446 ms MUSE SYSTEM (Bezet) Calculated P [place] 37 degrees MUSE SYSTEM Calculated R [place] -23 degrees MUSE SYSTEM Calculated T [place] 116 degrees MUSE SYSTEM INTERPRETATION Normal sinus rhythm MUSE SYSTEM Inferior infarct (cited on or before 25-JAN-2013) ST & T wave abnormality, consider anterolateral ischemia Abnormal ECG When compared with ECG of 19-AUG-2017 10:23, No significant change was found Confirmed by MD Castellon Daniel ([id number]) on 09/08/2019 10:22:4 7 AM Specimen Anatomical [...] disease documented in this encounter Care Teams Knitting Machine Operator Automatic Relationship Specialty Start Date End Date Lovely Vicente MD PCP - General 04/16/[address] [place] [address] documented as of this encounter
--- OUTSIDE RECORDS SUMMARY | 2022-02-20 01:41 | XMS_ITS | Encounter Summary ---
:1945 [place] [address] Care Team Providers Name Role Phone Lovely Vicente MD Primary Care Provider Encounter Details Date Type Department Care Team Description 07/12/2019 Office Visit Dermatology at Selina Garcia, Rigoebrto Yarbrough (actinic keratosis); MD SHAY Quick III (seborrheic keratosis); [address] [facility] Multiple benign nevi; [place] [address] History of melanoma [phone] [facility] [place], [place] [address] Social History Tobacco Use Types [...] encounter. Rigoberto Garcia MD Section of Dermatology [facility] documented in this encounter Plan of Treatment Upcoming Encounters Date Type Specialty Care Team Description 03/26/2022 Office Visit Cardiology Vitaliy Nobles MD [facility] ER CARDIOLOGY [place], [place] [address] (Wo rk) documented as of this encounter Visit Diagnoses Diagnosis AK (actinic keratosis) Actinic keratosis SK (seborrheic keratosis) Other seborrheic keratosis Multiple benign nevi Benign neoplasm of skin, site unspecifie d History of melanoma Personal history of malignant melanoma o f skin documented in this encounter Care Teams Explosive Technician Relationship Specialty Start Date End Date Lovely Vicente MD PCP - General 04/16/[address] [place] [address] documented as of this encounter
--- OUTSIDE RECORDS SUMMARY | 2022-02-20 01:41 | XMS_ITS | Encounter Summary ---
:1945 Author Organization [place] [address] Care Team Providers Name Role Phone Lovely Vicente MD Primary Care Provider Reason for Visit Reason Onset Date Comments Other 03/24/2019 cardiac clearance ne eded Encounter Details Date Type Department Care Team Description 03/24/2019 Telephone Cardiology at [facility] Danette Maxwell, Other (cardiac [facility] TECHNICAL PUBLICATIONS WRITER clearance needed) [place] [address] CARDIOLOGY [place], [place] [address] (Wo rk) Social History Tobacco [...] AM EDT Leonela from [facility] [place] called requesting cardiac clearance for this patient who is to have a colonoscopy on 04/04/19. He is on anticoagulation and they will need to bridge him. Their phone # [phone], fax# [phone]. Thank you. documented in this encounter Plan of Treatment Upcoming Encounters Date Type Specialty Care Team Description 03/26/2022 Office Visit Cardiology iVtaliy Nobles MD [facility] ER CARDIOLOGY [place], [place] [address] (Wo rk) documented as of this encounter Visit Diagnoses Not on filedocumented in this encounter Care Teams Spinner Concrete Pipe Relationship Specialty Start Date End Date Lovely Vicente MD PCP - General 04/16/[address] [place] [address] documented as of this encounter
--- OUTSIDE RECORDS SUMMARY | 2022-02-20 01:41 | XMS_ITS | Encounter Summary ---
:1945 Author Organization [facility] [place] [address] Care Team Providers Name Role Phone Lovely Vicente MD Primary Care Provider Encounter Details Date Type Department Care Team Description 11/07/2019 TH Visit Cardiology at [facility] Danette Maxwell (arteriosclerotic heart disease); (TeleHealth) [facility] STACIE Gomes Cardiomyopathy, ischemic; [facility] S/P CABG x 3; [place], [place] MARIA VICTORIA (obstructive sleep apnea) on CPAP [address] CARDIOLOGY [phone] [place], [place] [address] Social History Tobacco Use Types [...] regurgitation present. 07/07/2019 - 07/21/2019 Zio Patch Painter Structural Steel The patient had a minimum heart rate [...] at last check 6. Post-op atrial fibrillation [id number] (CHF, HTN, DM, vascular disease, thromboembolism) Amiodarone discontinued Continue coumadin INR managed by PCP 7. PAD 08/06/2017: Right 1st, 2nd, 3rd toe amputation 08/11/2017: Left??femoral arterial access, RLE??angiogram, Balloon angioplasty of R PT with Eleazar 2.5 x 80 10/25/2017: right popliteal[facility]pedal bypass at [facility] Continue Coumadin 8. Hypothyrodism S/p thyroidectomy for [...] Vitaliy Nobles MD [facility] ER CARDIOLOGY [place], [place] [address] (Wo rk) documented as of this encounter Visit Diagnoses Diagnosis ASHD (arteriosclerotic heart disease) Coronary atherosclerosis of unspecified type of vessel, [place] or graft Cardiomyopathy, ischemic Other specified forms of chronic ischemi c heart disease S/P CABG x 3 Postsurgical aortocoronary bypass status MARIA VICTORIA (obstructive sleep apnea) on CPAP Obstructive sleep apnea (adult) (pediatr ic) documented in this encounter Care Teams Paper And Prints Restorer Relationship Specialty Start Date End Date Lovely Vicente MD PCP - General 04/16/[address] [place] [address] [address] [place] [address] documented as of this encounter
--- OUTSIDE RECORDS SUMMARY | 2022-02-20 01:41 | XMS_ITS | Encounter Summary ---
:1945 Author Organization [facility] [place] [address] Care Team Providers Name Role Phone Lovely Vicente MD Primary Care Provider Encounter Details Date Type Department Care Team Description 07/28/2019 Laboratory Appointment Lab 3L [facility] systolic [facility] [place] [id number] Social History Tobacco Use Types Packs/Day Years [...] MD [facility] ER CARDIOLOGY [place], [place] [address] (Wo rk) documented as of [...] pro-Brain Natriuretic Peptide (07/28/2019 8:36 AM EST) athologist Signature ProBNP 647 (H) <=125 pg/mL [facility] Specimen Anatomical Collection Method Collection Time Receive d Time (Source) Location / / Volume Laterality Blood specimen 07/28/2019 8:36 AM 020 8:46 (specimen) EST AM EST Resulting Agency Comment Spec In Lab Danette A Hans STACIE CHEMISTRY ORDERABLES Performing Organization Address City/State/[place] [address] (ABNORMAL) Basic Metabolic Panel (non-fasting) (07/28/2019 8:36 AM EST) athologist Signature Glucose Lvl 153 65 - 199 [facility] mg/dL [facility] Comment: Diabetes: >=200 mg/dL plus symp toms BUN 22 (H) 10 - 20 mg/dL [facility] Creatinine 1.05 0.80 - 1.50 mg/dL [facility] Sodium 141 135 - 145 mmol/L [facility] Potassium 4.5 3.5 - 5.0 mmol/L [facility] LABORATORY Calcium 9.3 8.5 - 10.5 mg/dL [facility] Estimated GFR 70 >=60 mL/min/1.73 m?? [facility] Comment: The eGFR was calculated using the CKD-EP I equation. As with all creatinine based estimates of kidney function, eGFR values calculated with the CKD-EPI equation are not accurate in patients wi th acute kidney failure, extremes of body mass or the acutely ill. http://Last.fm/DHMCnkf eGFR 81 >=60 mL/min/1.73 m?? [facility] Comment: The eGFR was calculated using the CKD-EP I equation. As with all creatinine based estimates of kidney function, eGFR values calculated with the CKD-EPI equation are not accurate in patients wi th acute kidney failure, extremes of body mass or the acutely ill. http://Last.fm/DHnkf Specimen Anatomical Collection Method Collection Time Receive d Time (Source) Location / / Volume Laterality Blood specimen 07/28/2019 8:36 AM 020 8:46 (specimen) EST AM EST Resulting Agency Comment Spec In Lab Danette Maxwell APRN CHEMISTRY ORDERABLES Performing Organization Address City/State/[place] [address] documented in this encounter Visit Diagnoses Diagnosis Chronic systolic heart failure documented in this encounter Care Teams Mail Censor Relationship Specialty Start Date End Date Lovely Vicente MD PCP - General 04/16/[address] [place] [address] documented as of this encounter
--- OUTSIDE RECORDS SUMMARY | 2022-02-20 01:41 | XMS_ITS | Encounter Summary ---
:1945 Author Organization [facility] [place] [address] Care Team Providers Name Role Phone Lovely Vicente MD Primary Care Provider Encounter Details Date Type Department Care Team Description 09/16/2017 Hospital [place] [address] Social History Tobacco Use Types Packs/Day [...] Nobles MD [facility] CARDIOLOGY [place], [place] [address] (Wo rk) documented as of this encounter Procedures Procedure Name Priority Date/Time Associated Diagnosis Comme [facility] SURGICAL PATHOLOGY Routine 09/16/2017 7:28 AM Res ults for this REPORT EST procedure are i n the results section. documented in this encounter Results Surgical Pathology Report (09/16/2017 7:28 AM EST) Component Value Ref Test Analysis Performed At [facility] Range Method Time Signature Surgical [id number] ? Location: [facility] Report The signing pathologist has (i) examined the relevant preparation(s) for the [facility] specimen(s) and (ii) rendered or confirmed the diagnosis(es) . HOSPITAL LABORATORY . ?Surgic al Pathology DIAGNOSIS A - Bone and soft tissue, right foot, biopsy: ?Granulation with fibrinopurulent crust, scar and chronic changes, with ?no evidence of involvement of underlying bone. Electronically signed by: ??Manjit STRANGE, Henrique Flwoer Verified: ??09/24/2017 ?Pathologist Performed at: ??-[facility] Dept. of Pathology, [place], [place] CLINICAL INFORMATION Specimen Submitted: A - [...] Organization Address City/State/Z[place] [address] [facility] [address] documented in this encounter Visit Diagnoses Not on filedocumented in this encounter Care Teams Internist Relationship Specialty Start Date End Date Lovely Vicente MD PCP - General 04/16/[address] [place] [address] documented as of this encounter
--- OUTSIDE RECORDS SUMMARY | 2022-02-20 01:41 | XMS_ITS | Encounter Summary ---
:1945 Author Organization [facility] Address [address] [place] [address] Care Team Providers Name Role Phone Lovely Vicente MD Primary Care Provider Reason for Referral Diagnostic Test (Routine) - Specialty Diagnoses / Procedures Referred By Contact Refer red To Contact Cardiology Diagnoses Chronic systolic heart failure Danette Maxwell APRN [facility] Non-Inv Card Lab Procedures Echocardiogram Transthoracic(Leb) [facility] [place] [address] [place] [address] Referral ID Status Reason Start Date Expiration Visits Visits Date Requested Authorized [id number] Specialty 08/15/2018 08/15/2018 1 1 Service Requested Encounter Details Date Type Department Care Team Description 04/18/2018 [place] [facility] [place]ette Maxwell Chronic systolic heart failu re; [facility] STACIE Gomes On amiodarone therapy; [facility] Ischemic cardiomyopathy; [place], [place] DR ONOFRE (arteriosclerotic cardiovascular d isease) [phone] CARDIOLOGY [phone] [place], [place] [address] Social History Tobacco Use Types Packs/Day Years [...] in this encounter Progress Notes Danette Maxwell, SENIOR SYSTEMS ENGINEER - 04/18/2018 10:40 AM EDT ID and [...] x 80 10/25/2017: right pop[facility]al[facility]ped[facility] bypass at [facility] ? Plan: 1. A review of the [...] Vitaliy Nobles MD [facility] CARDIOLOGY [place], [place] [address] (Wo rk) documented as of this encounter Results ECHOCARDIOGRAM COMPLETE W CONTRAST (08/15/2018 7:55 AM EST) P athologist Signature EF 35 HEARTLAB SYSTEM Specimen (Source) Anatomical Location Collection Method / Collectio n Time Received Time / Laterality Volume 08/15/2018 Narrative HEARTLAB SYSTEM - 08/15/2018 8:18 AM EST Procedure: ?Transthoracic Echocardiogram Patient: ?NATALYA Mccollum ? (Age): 1945(73y) Med Rec#: ? [id number] ?Sex: ?M ? [place] Loc: ? [facility] [place] ?Ht / Wt: ??172(cm)/81(kg) Pt. Loc: ?Echo Lab ?BSA: ?1.94 Study Date: ?? 08/15/2018 ?Pt. Type: Outpatient Tape: ? Referring: MARY ELLEN Reading: Scott Ortega ([id number]) Front Loader Residential Driver: Laura Sargent Diagnosis: *Chronic systolic (congestive) heart [...] E-wave Vmax ?1.2 ?m/sec ? MV deceleration [id number] ? msec ? MV A-wave Vmax ?0.7 [...] ? Mid-Inferior ?Hypokinetic ? Mid-Inferoseptal ?Hypokinetic ? [place]-Septal ? Akinetic ? [place]-Anterior ? Hypokinetic ? [place]-Lateral ?Akinetic ? [place]-Inferior ? Hypokinetic ? [place]-Tip ?Akinetic ? This report has been electronically sign ed by: _ Scott Ortega M.D. ? 08/15/2018 08:17:26 Images reviewed and interpretation elvie hwang [facility] Cardiac Ultrasound Laboratory Procedure Note Scott Ortega MD - 08/15/2018Format ting of this note might be different from the original. Procedure: Transthoracic Echocardiogram Patient: NATALYA Mccollum DOB(Age): [birth year]73y) Med Rec#: [id number] Sex: M [place] [facility] [place] Ht / Wt: 172(cm)/81(kg) Pt. Loc: Echo Lab BSA: 1.94 Study Date: 08/15/2018 Pt. Type: Outpati ent Tape: Referring: MARY ELLEN Reading: Sctot Ortega Eliseo ([id number]) Front Loader Residential Driver: Laura Sargent Diagnosis: *Chronic systolic (congestive) heart fa perry (I50.22) BP: 157/85 SUMMARY: 1. The left [...] MV E-wave Vmax 1.2 m/sec MV deceleration [id number] msec MV A-wave Vmax 0.7 m/sec MV [...] Akinetic Mid-Posterolateral Akinetic Mid-Inferior Hypokinetic Mid-Inferoseptal Hypokinetic [place]-Septal Akinetic [place]-Anterior Hypokinetic [place]-Lateral Akinetic [place]-Inferior Hypokinetic [place]-Tip Akinetic This report has been electronically sign ed by: _ Scott Ortega M.D. 08/15/2018 08:17: 26 Images reviewed and interpretation elvie hwang [facility] Cardiac Ultrasound Laboratory Danette Maxwell APRN ECHO ORDERABLES Performing Organization Address City/State/ZIP Code Phon e Number HEARTLAB SYSTEM (ABNORMAL) Basic Metabolic Panel (non-fasting) (04/18/2018 9:19 AM EDT) P athologist Signature Glucose Lvl 167 65 - 199 [facility] mg/dL [facility] Comment: Diabetes: >=200 mg/dL plus symp toms BUN 18 10 - 20 mg/dL [facility] Anion Gap 23 (H) 5 - 15 mmol/L [facility] Calcium 9.3 8.5 - 10.5 mg/dL [facility] Estimated GFR 61 >=60 mL/min/1.73 m?? [facility] Comment: The eGFR was calculated using the CKD-EP I equation. As with all creatinine based estimates of kidney function, eGFR values calculated with the CKD-EPI equation are not accurate in patients wi th acute kidney failure, extremes of body mass or the acutely ill. http://StyleTrek/[facility] [place] eGFR 70 >=60 mL/min/1.73 m?? [facility] Comment: The eGFR was calculated using the CKD-EP I equation. As with all creatinine based estimates of kidney function, eGFR values calculated with the CKD-EPI equation are not accurate in patients wi th acute kidney failure, extremes of body mass or the acutely ill. http://StyleTrek/[facility] [place] [place] Specimen Anatomical Collection Method Collection Time Receive d Time (Source) Location / / Volume Laterality Blood specimen 04/18/2018 9:19 AM 018 9:34 (specimen) EDT AM EDT Resulting Agency Comment Spec In Lab Danette Maxwell STACIE CHEMISTRY ORDERABLES Performing Organization Address City/State/[place] [address] (ABNORMAL) pro-Brain Natriuretic Peptide (04/18/2018 9:19 AM EDT) P athologist Signature ProBNP 2,199 (H) <=125 [place] pg/mL [facility] Specimen Anatomical Collection Method Collection Time Receive d Time (Source) Location / / Volume Laterality Blood specimen 04/18/2018 9:19 AM 018 9:34 (specimen) EDT AM EDT Resulting Agency Comment Spec In Lab Danette Gomes Hans STACIE CHEMISTRY ORDERABLES Performing Organization Address City/[facility]/[place] [address] documented in this encounter Visit Diagnoses Diagnosis Chronic systolic heart failure On amiodarone therapy Ischemic cardiomyopathy Other specified forms of chronic ischemi c heart disease ASCVD (arteriosclerotic cardiovascular d isease) Unspecified cardiovascular disease Chronic systolic heart failure documented in this encounter Care Teams Heat Sealing Machine Operator Relationship Specialty Start Date End Date Lovely Vicente MD PCP - General 04/16/[address] [place] [address] documented as of this encounter
--- OUTSIDE RECORDS SUMMARY | 2022-02-20 01:41 | XMS_ITS | Encounter Summary ---
:1945 Author Organization [facility] [place] [address] Care Team Providers Name Role Phone Lovely Vicente MD Primary Care Provider Encounter Details Date Type Department Care Team Description 04/18/2018 Laboratory Appointment Lab 3L [facility] systolic [facility] [place] [id number] Social History Tobacco Use Types Packs/Day Years [...] Nobles MD [facility] ER CARDIOLOGY [place], [place] [address] (Wo rk) documented as of [...] Hepatic Function Panel (04/18/2018 9:19 AM EDT) [facility] Total Protein 7.6 6.1 - 8.0 KATALINA RYAN gm/dL [facility] Albumin 4.0 3.2 - 5.2 Pwnie ExpressRYAN gm/dL [facility] AST 36 0 - 39 KATALINA RYAN unit/L [facility] ALT 27 0 - 55 KATALINA RYAN unit/L [facility] Alk Phos 96 40 - 120 [facility] unit/L [facility] Total 0.7 0.2 - 1.3 KATALINA [employer] Bilirubin mg/dL [facility] Bili, Direct 0.1 0.0 - 0.3 [facility] mg/dL [facility] Specimen Anatomical Collection Method Collection Time Receive d Time (Source) Location / / Volume Laterality Blood specimen Venous Draw / 04/18/2018 9:19 AM 2017 9:44 (specimen) Unknown EDT AM EDT Resulting Agency Comment Spec In Lab Danette Maxwell APRN CHEMISTRY ORDERABLES Performing Organization Address City/[facility]/[place] [address] TSH (04/18/2018 9:19 AM EDT) [facility] TSH 1.77 0.27 - 4.20 [facility] mlU/ML [facility] Specimen Anatomical Collection Method Collection Time Receive d Time (Source) Location / / Volume Laterality Blood specimen Venous Draw / 04/18/2018 9:19 AM 2017 9:44 (specimen) Unknown EDT AM EDT Resulting Agency Comment Spec In Lab Danette Maxwell APRN CHEMISTRY ORDERABLES Performing Organization Address City/[facility]/[place] [address] (ABNORMAL) Basic Metabolic Panel (non-fasting) (04/18/2018 9:19 AM EDT) P athologist Signature Glucose Lvl 167 65 - 199 [facility] mg/dL [facility] Comment: Diabetes: >=200 mg/dL plus symp toms BUN 18 10 - 20 mg/dL [facility] Creatinine 1.19 0.80 - 1.50 mg/dL [facility] Sodium 147 (H) 135 - 145 mmol/L [facility] mmol/L [facility] CO2 23 22 - 31 mmol/L [facility] Anion Gap 23 (H) 5 - 15 mmol/L [facility] Calcium 9.3 8.5 - 10.5 mg/dL [facility] Estimated GFR 61 >=60 mL/min/1.73 m?? [facility] Comment: The eGFR was calculated using the CKD-EP I equation. As with all creatinine based estimates of kidney function, eGFR values calculated with the CKD-EPI equation are not accurate in patients wi th acute kidney failure, extremes of body mass or the acutely ill. http://LiveAir Networks/[facility] [place]nk[facility] eGFR 70 >=60 mL/min/1.73 m?? [facility] Comment: The eGFR was calculated using the CKD-EP I equation. As with all creatinine based estimates of kidney function, eGFR values calculated with the CKD-EPI equation are not accurate in patients wi th acute kidney failure, extremes of body mass or the acutely ill. http://Live[employer]/[facility] [place] CITYnkf Specimen Anatomical Collection Method Collection Time Receive d Time (Source) Location / / Volume Laterality Blood specimen 04/18/2018 9:19 AM 018 9:34 (specimen) EDT AM EDT Resulting Agency Comment Spec In Lab Danette Maxwell STACIE CHEMISTRY ORDERABLES Performing Organization Address City/State/[place] [address] (ABNORMAL) pro-Brain Natriuretic Peptide (04/18/2018 9:19 AM EDT) P athologist Signature ProBNP 2,199 (H) <=125 [facility] pg/mL [facility] Specimen Anatomical Collection Method Collection Time Receive d Time (Source) Location / / Volume Laterality Blood specimen 04/18/2018 9:19 AM 018 9:34 (specimen) EDT AM EDT Resulting Agency Comment Spec In Lab Danette Gomes Hans STACIE CHEMISTRY ORDERABLES Performing Organization Address City/[facility]/[place] [address] documented in this encounter Visit Diagnoses Diagnosis Chronic systolic heart failure documented in this encounter Care Teams Field Traffic Investigator Relationship Specialty Start Date End Date Lovely Vicente MD PCP - General 04/16/[address] [place] [address] documented as of this encounter
--- OUTSIDE RECORDS SUMMARY | 2022-02-20 01:41 | XMS_ITS | Encounter Summary ---
:1945 Author Organization [facility] [place] [address] Care Team Providers Name Role Phone Lovely Vicente MD Primary Care Provider Reason for Referral Diagnostic Test (Routine) - Closed Specialty Diagnoses / Procedures Referred By Contact Refer red To Contact Cardiology Diagnoses Chronic systolic heart failure Danette Maxwell APRN [facility] Non-Inv Card Lab Procedures Echocardiogram Transthoracic(Leb) [facility] [place] [address] [place] [address] Referral ID Status Reason Start Date Expiration Date Visits V isits Requested Authorized [id number] Closed Specialty 07/17/2019 09/14/2019 1 1 Service Requested Reason for Visit Diagnostic Test (Routine) - Closed Specialty Diagnoses / Procedures Referred By Contact Refer red To Contact Cardiology Diagnoses Chronic systolic heart failure Danette Maxwell APRN [facility] Non-Inv Card Lab Procedures Echocardiogram Transthoracic(Leb) [facility] [place] [address] [place] [address] Referral ID Status Reason Start Date Expiration Date Visits V isits Requested Authorized [id number] Closed Specialty 07/17/2019 09/14/2019 1 1 Service Requested Encounter Details Date Type Department Care Team Description 07/28/2019 Hospital Encounter Non-Invasive Chronic s ystolic heart [place] [address] Social History Tobacco Use Types Packs/Day [...] Visit Cardiology Vitaliy Nobles MD [facility] ER CARDIOLOGY [place], [place] [address] (Wo rk) documented as of [...] Mccollum ? (Age): 1945(74y) Med Rec#: ? [id number] ?Sex: ?M ? [place] Loc: ? [facility] [place] ?Ht / Wt: ??172(cm)/81(kg) Pt. Loc: ?Echo Lab ?BSA: ?1.94 Study Date: ?? 07/28/2019 ?Pt. Type: Outpatient Tape: ? Referring: MARY LELEN Reading: Ifeanyi Truong ([id number]) Outreach Assistant: Fadumo Flanagan RDCS, FASE Diagnosis: *Chronic systolic [...] E-wave Vmax ?1 ?m/sec ? MV deceleration pvah255.5 ? msec ? MV A-wave Vmax ?1 [...] ? Pulmonic Valve/Qp:Qs ?Value ?Units (Range) ? GA end-diastolic Vma1.1 ?m/sec ? Wall Motion: Segment Name ?Rest ? Base-Anteroseptal ?? Normal ? Base-Anterior ? Normal ? Base-Anterolateral ??Normal ? Base-Posterolateral Normal ? Base-Inferior ? Akinetic ? Base-Inferoseptal ?? Normal ? Mid-Anteroseptal ?Normal ? Mid-Anterior ?Hypokinetic ? Mid-Anterolateral ?? Normal ? Mid-Posterolateral ??Normal ? Mid-Inferior ?Hypokinetic ? Mid-Inferoseptal ?Normal ? Mcn[place]-Septal ? Normal ? [place]-Anterior ? Hypokinetic ? [place]-Lateral ?Normal ? [place]-Inferior ? Akinetic ? Mcn[place]-Tip ?Hypokinetic ? This report has been electronically sign ed by: _ Ifeanyi Truong M.D. ? 07/28/2019 0 8:38:01 Images reviewed and interpretation verif ied [facility] Cardiac Ultrasound Laboratory Procedure Note Ifeanyi Truong MD - 07/28/2019Formatt ing of this note might be different from the original. Procedure: Transthoracic Echocardiogram Patient: NATALYA MCBRIDE(Age): [birth year]74y) Med Rec#: [id number] Sex: M [place] Loc: [facility] Ht / Wt: 172(cm)/81(kg) Pt. Loc: Echo Lab BSA: 1.94 Study Date: 07/28/2019 Pt. Type: Outpati ent Tape: Referring: MARY ELLEN Reading: Ifeanyi Truong ([id number]) Outreach Assistant: Fadumo Flanagan RDCS, FASE Diagnosis: *Chronic systolic [...] MV E-wave Vmax 1 m/sec MV deceleration [id number] msec MV A-wave Vmax 1 m/sec MV [...] 0.7 ratio Pulmonic Valve/Qp:Qs Value Units (Range) GA end-diastolic Vma1.1 m/sec Wall Motion: Segment Name Rest Base-Anteroseptal Normal Base-Anterior Normal Base-Anterolateral Normal Base-Posterolateral Normal Base-Inferior Akinetic Base-Inferoseptal Normal Mid-Anteroseptal Normal Mid-Anterior Hypokinetic Mid-Anterolateral Normal Mid-Posterolateral Normal Mid-Inferior Hypokinetic Mid-Inferoseptal Normal Mcnabb-Septal Normal Mcnabb-Anterior Hypokinetic Mcnabb-Lateral Normal Mcnabb-Inferior Akinetic Mcnabb-Tip Hypokinetic This report has been electronically sign ed by: _ Ifeanyi Truong M.D. 07/28/2019 08:38:0 1 Images reviewed and interpretation verif ied [facility] Cardiac Ultrasound Laboratory Danette Maxwell [...] Routine documented in this encounter Care Teams Solid Waste Facility Operator Relationship Specialty Start Date End Date Lovely Vicente MD PCP - General 04/16/[address] [place] [address] documented as of this encounter
--- OUTSIDE RECORDS SUMMARY | 2022-02-20 01:41 | XMS_ITS | Encounter Summary ---
:1945 Author Organization [facility] [place] [address] Care Team Providers Name Role Phone Lovely Vicente MD Primary Care Provider Encounter Details Date Type Department Care Team Description 08/26/2018 Transcribe Orders Laboratory Lovely Vicente, Deferred diagnosis [facility] MD on axis I Drive [address] [place] [address] [address] [address] [place], [place] [phone] [address] Social History Tobacco Use Types Packs/Day Years [...] [facility] C[facility] [place], [place] [address] (Wo rk) documented as of this encounter Visit Diagnoses Diagnosis Deferred diagnosis on axis I Other unknown and unspecified cause of m orbidity or mortality documented in this encounter Care Teams Chief Electrician Relationship Specialty Start Date End Date Lovely Vicente MD PCP - General 04/16/[address] [place] [address] [address] [place] [address] documented as of this encounter
--- OUTSIDE RECORDS SUMMARY | 2022-02-20 01:41 | XMS_ITS | Encounter Summary ---
:1945 Author Organization [facility] [place] [address] Care Team Providers Name Role Phone Lovely Vicente MD Primary Care Provider Encounter Details Date Type Department Care Team Description 08/15/2018 Office Visit Cardiology at [facility] Danette Maxwell Chronic systolic heart failu re; [facility] A, IMITATION MARBLE MECHANIC Cardiomyopathy, ischemic; [facility] ASCVD (arteriosclerotic card iovascular disease); [place], [place] Essential hypertension; [address] CARDIOLOGY MARIA VICTORIA on CPAP [phone] [place], [place] [address] Social History Tobacco Use Types [...] in this encounter Progress Notes Danette Maxwell, IMITATION MARBLE MECHANIC - 08/15/2018 9:00 AM EST Images from [...] is always better at therapy Call to [facility] PT Denies lightheadedness or dizziness Denies [...] K+ 4.6 today 6. Post-op atrial fibrillation [id number] (CHF, HTN, DM, vascular disease, thromboembolism) Amiodarone discontinued Continue coumadin INR managed by PCP. 2.1 today 7. PAD 08/06/2017: Right 1st, 2nd, 3rd toe amputation 08/11/2017: Left??femoral arterial access, RLE??angiogram, Balloon angioplasty of R PT with Eleazar 2.5 x 80 10/25/2017: [facility] [...] Cardiology Vitaliy Nobles MD [facility] [address] [address] (Wo rk) documented as of this encounter Results Lipid Panel (08/15/2018 8:04 AM EST) P athologist Signature Chol, Total 75 mg/dL [facility] Comment: Lower Risk: <200 mg/dL Average Risk: 200-239 mg/dL Higher Risk: >gd=230 mg/dL Triglycerides 185 mg/dL [facility] Comment: Average Risk/Lower Risk: <150 mg/dL Borderline High Risk: 150-199 mg/dL High Risk: 200-499 mg/dL Very High Risk: >af=132 mg/dL HDL 32 mg/dL [facility] Comment: Males: ?? Higher Risk: <40 mg/dL Females: ?? HIgher Risk: <50 mg/dL LDL Cholesterol 6 mg/dL [facility] Comment: Lowest Risk: <100 mg/dL Lower Risk: 100-129 mg/dL Borderline High Risk: 130-159 mg/dL High Risk: 160-189 mg/dL Very High Risk: >bd=399 mg/dL Chol/HDL Ratio 2.3 ratio [facility] Lipid Interpretation See Note [facility] Comment: Lipid management should be guided by a p atient? s ASCVD risk, goals and preferences. ACC/AHA Guidelines recommend high intens ity statin if clinical ASCVD or LDL greater than or equal to 190 mg/dL. http://Innovatus [employer].Yopima/VFD-UVU-Voajjffhd Adults aged 40-75 with LDL 70-189 mg/dL should have their 10 year ASCVD risk estimated with the ACC/AHA ASCVD risk es timator http://tools.acc.org/VTDGC-Uaoy-Lggxlqoa r/ Statin should be discussed if risk [...] City/State/[place] [address] (ABNORMAL) Basic Metabolic Panel (non-fasting) (08/15/2018 8:04 AM EST) P athologist Signature Glucose Lvl 116 65 - 199 [facility] mg/dL [facility] Comment: Diabetes: >=200 mg/dL plus [...] LABORATORY Estimated GFR 68 >=60 mL/min/1.73 m?? [facility] Comment: The eGFR was calculated using the CKD-EP I equation. As with all creatinine based estimates of kidney function, eGFR values calculated with the CKD-EPI equation are not accurate in patients wi th acute kidney failure, extremes of body mass or the acutely ill. http://Apropose/DHMCnkf eGFR 79 >=60 mL/min/1.73 m?? [facility] Comment: The eGFR was calculated using the CKD-EP I equation. As with all creatinine based estimates of kidney function, eGFR values calculated with the CKD-EPI equation are not accurate in patients wi th acute kidney failure, extremes of body mass or the acutely ill. http://Innov[employer]opima/DHMCnkf Specimen Anatomical Collection Method Collection Time Receive d Time (Source) Location / / Volume Laterality Blood specimen 08/15/2018 8:04 AM 019 8:20 (specimen) EST AM EST Resulting Agency Comment Spec In Lab Danette Maxwell STACIE CHEMISTRY ORDERABLES Performing Organization Address City/[facility]/[place] [address] (ABNORMAL) pro-Brain Natriuretic Peptide (08/15/2018 8:04 AM EST) P athologist Signature ProBNP 1,797 (H) <=125 [facility] pg/mL [facility] Specimen Anatomical Collection Method Collection Time Receive d Time (Source) Location / / Volume Laterality Blood specimen 08/15/2018 8:04 AM 019 8:20 (specimen) EST AM EST Resulting Agency Comment Spec In Lab Danette A [place] STACIE CHEMISTRY ORDERABLES Performing Organization Address City/[facility]/[place] [address] documented in this encounter Visit Diagnoses Diagnosis Chronic systolic heart failure Cardiomyopathy, ischemic Other specified forms of chronic ischemi c heart disease ASCVD (arteriosclerotic cardiovascular d isease) Unspecified cardiovascular disease Essential hypertension Unspecified essential hypertension MARIA VICTORIA on CPAP Obstructive sleep apnea (adult) (pediatr ic) documented in this encounter Care Teams Film Touch Up Inspector Relationship Specialty Start Date End Date Lovely Vicente MD PCP - General 04/16/[address] [place] [address] documented as of this encounter
--- OUTSIDE RECORDS SUMMARY | 2022-02-20 01:41 | XMS_ITS | Encounter Summary ---
:1945 Author Organization [facility] Address [facility] [place] [address] Care Team Providers Name Role Phone Lovely Vicente MD Primary Care Provider Encounter Details Date Type Department Care Team Description 01/02/2020 Office Visit Dermatology at [facility] keratoses; Abdelrahman HOOPER MD History of melanoma; [address] [facility] History of dysplastic nevus; [place] [address] Multiple benign nevi; [phone] [facility] Seborrheic yossi lanc[place]; RD-DERMATOLGY Skin exam for malignant neoplasm [place], [place] [address] Social History Tobacco Use [...] Garcia MD Section of Dermatology [facility] documented in this encounter Plan of Treatment Upcoming Encounters Date Type Specialty Care Team Description 03/26/2022 Office Visit Cardiology Vitaliy Nobles MD [facility] CARDIOLOGY [place], [place] [address] (Wo rk) documented as of [...] skin documented in this encounter Care Teams Actuarial Director Relationship Specialty Start Date End Date Lovely Vicnete MD PCP - General 04/16/[address] [place] [address] documented as of this encounter
--- OUTSIDE RECORDS SUMMARY | 2022-02-20 01:41 | XMS_ITS | Encounter Summary ---
:1945 Author Organization [place] [address] Care Team Providers Name Role Phone Lovely Vicente MD Primary Care Provider Encounter Details Date Type Department Care Team Description 10/07/2017 Laboratory Appointment Lab 3L [facility] [place] [address] Social History Tobacco Use Types Packs/Day Years [...] MD [facility] ER CARDIOLOGY [place], [place] [address] (Wo rk) documented as of [...] Signature Glucose Lvl 99 65 - 199 [facility] mg/dL [facility] Comment: Diabetes: >=200 mg/dL plus symp toms BUN 27 (H) 10 - 20 mg/dL [facility] Creatinine 1.07 0.80 - 1.50 mg/dL [facility] Sodium 143 135 - 145 mmol/L [facility] Potassium 4.7 3.5 - 5.0 mmol/L [facility] [...] mmol/L [facility] Calcium 8.4 (L) 8.5 - 10.5 mg/dL [facility] Estimated GFR >60 >=60 [facility] Comment: The reported eGFR should be multiplied b y 1.2 for patients. The MDRD is not an appropriate measure o f renal function for patients with body mass extremes or in patients with acute kidney failure. http://Cytox.[place]pton/DHnkdep http://newMentor/DHMCnkf Specimen Anatomical Collection Method Collection Time Receive d Time (Source) Location / / Volume Laterality Blood specimen 10/07/2017 8:48 AM 018 8:50 (specimen) EDT AM EDT Resulting Agency Comment Spec In Lab Danette Maxwell APRN CHEMISTRY ORDERABLES Performing Organization Address City/State/[place] [address] (ABNORMAL) pro-Brain Natriuretic Peptide (10/07/2017 8:48 AM EDT) P athologist Signature ProBNP 1,170 (H) <=125 [facility] pg/mL [facility] Specimen Anatomical Collection Method Collection Time Receive d Time (Source) Location / / Volume Laterality Blood specimen 10/07/2017 8:48 AM 018 8:50 (specimen) EDT AM EDT Resulting Agency Comment Spec In Lab Danette Maxwell APRN CHEMISTRY ORDERABLES Performing Organization Address City/State/[place] [address] documented in this encounter Visit Diagnoses Diagnosis Chronic systolic heart failure documented in this encounter Care Teams Transonic Engineer Relationship Specialty Start Date End Date Lovely Vicente MD PCP - General 04/16/[address] [place] [address] documented as of this encounter
--- OUTSIDE RECORDS SUMMARY | 2022-02-20 01:41 | XMS_ITS | Encounter Summary ---
:1945 Author Organization [facility] Address [facility] [place] [address] Care Team Providers Name Role Phone Lovely Vicente MD Primary Care Provider Reason for Referral Diagnostic Test (Routine) - Closed Specialty Diagnoses / Procedures Referred By Contact Refer red To Contact Cardiology Diagnoses Chronic systolic heart failure Danette Maxwell APRN [facility] Non-Inv Card Lab Procedures Echocardiogram Transthoracic(Leb) [facility] [place] [address] [place] [address] Referral ID Status Reason Start Date Expiration Date Visits V isits Requested Authorized [id number] Closed Specialty 07/17/2019 09/14/2019 1 1 Service Requested Encounter Details Date Type Department Care Team Description 01/16/2019 Office Visit Cardiology at [facility] Danette Maxwell, Chronic systolic heart failu re; [facility] STACIE Cardiomyopathy, ischemic; Drive [facility] Hx of thyroid cancer; [place], [place] DR [place] (arteriosclerotic heart disease); [address] CARDIOLOGY MARIA VICTORIA (obstructive sleep apnea) on CPAP [phone] [place], [place] [address] (Wo rk) Social History Tobacco Use Types [...] K+ 4.6 today 6. Post-op atrial fibrillation [id number] (CHF, HTN, DM, vascular disease, thromboembolism) Amiodarone discontinued Continue coumadin INR managed by PCP. 2.1 today 7. PAD 08/06/2017: Right 1st, 2nd, 3rd toe amputation 08/11/2017: Left??femoral arterial access, RLE??angiogram, Balloon angioplasty of R PT with Eleazar 2.5 x 80 10/25/2017: right popliteal-pedal bypass at [facility] 8. Hypothyrodism S/p thyroidectomy for goiter [...] Nobles MD [facility] CARDIOLOG[place], [place] [address] (Wo rk) documented as of this encounter Results ECHOCARDIOGRAM COMPLETE W CONTRAST (07/28/2019 8:19 AM EST) P athologist Signature EF 40 [employer] SYSTEM Specimen (Source) Anatomical Location Collection Method / Collectio n Time Received Time / Laterality Volume 07/28/2019 Narrative [facility] - 07/28/2019 8:38 AM EST Procedure: ?Transthoracic Echocardiogram Patient: ?NATALYA Mccollum ? (Age): 1945(74y) Med Rec#: ? [id number] ?Sex: ?M ? Site Loc: ? [facility] ?Ht / Wt: ??172(cm)/81(kg) Pt. Loc: ?Echo Lab ?BSA: ?1.94 Study Date: ?? 07/28/2019 ?Pt. Type: Outpatient Tape: ? Referring: MARY ELLEN Reading: Ifeanyi Truong () Veneer Stock Layer: Fadumo Flanagan RDCS, FASE Diagnosis: *Chronic systolic [...] E-wave Vmax ?1 ?m/sec ? MV deceleration [id number] ? msec ? MV A-wave Vmax ?1 [...] ? Pulmonic Valve/Qp:Qs ?Value ?Units (Range) ? NE end-diastolic Vma1.1 ?m/sec ? Wall Motion: Segment Name ?Rest ? Base-Anteroseptal ?? Normal ? Base-Anterior ? Normal ? Base-Anterolateral ??Normal ? Base-Posterolateral Normal ? Base-Inferior ? Akinetic ? Base-Inferoseptal ?? Normal ? Mid-Anteroseptal ?Normal ? Mid-Anterior ?Hypokinetic ? Mid-Anterolateral ?? Normal ? Mid-Posterolateral ??Normal ? Mid-Inferior ?Hypokinetic ? Mid-Inferoseptal ?Normal ? [place]-Septal ? Normal ? [place]-Anterior ? Hypokinetic ? [place]-Lateral ?Normal ? [place]-Inferior ? Akinetic ? [place]-Tip ?Hypokinetic ? This report has been electronically sign ed by: _ Ifeanyi Truong M.D. ? 07/28/2019 0 8:38:01 Images reviewed and interpretation verif ied [facility] Cardiac Ultrasound Laboratory Procedure Note Ifeanyi Truong MD - 07/28/2019Formatt ing of this note might be different from the original. Procedure: Transthoracic Echocardiogram Patient: NATALYA MCBRIDE(Age): [birth year]74y) Med Rec#: [id number] Sex: M Site Loc: [facility] Ht / Wt: 172(cm)/81(kg) Pt. Loc: Echo Lab BSA: 1.94 Study Date: 07/28/2019 Pt. Type: Outpati ent Tape: Referring: MARY ELLEN Reading: Ifeanyi Truong ([id number]) Veneer Stock Layer: Fadumo Flanagan RDCS, FASE Diagnosis: *Chronic systolic [...] MV E-wave Vmax 1 m/sec MV deceleration [id number] msec MV A-wave Vmax 1 m/sec MV [...] 0.7 ratio Pulmonic Valve/Qp:Qs Value Units (Range) NE end-diastolic Vma1.1 m/sec Wall Motion: Segment Name Rest Base-Anteroseptal Normal Base-Anterior Normal Base-Anterolateral Normal Base-Posterolateral Normal Base-Inferior Akinetic Base-Inferoseptal Normal Mid-Anteroseptal Normal Mid-Anterior Hypokinetic Mid-Anterolateral Normal Mid-Posterolateral Normal Mid-Inferior Hypokinetic Mid-Inferoseptal Normal [place]-Septal Normal [place]-Anterior Hypokinetic [place]-Lateral Normal [place]-Inferior Akinetic [place]-Tip Hypokinetic This report has been electronically sign ed by: _ Ifeanyi Truong M.D. 07/28/2019 08:38:0 1 Images reviewed and interpretation elvie hwang [facility] Cardiac Ultrasound Laboratory Danette Maxwell APRN ECHO ORDERABLES Performing Organization Address City/State/ZIP Code Phon e Number [facility] (ABNORMAL) Basic Metabolic Panel (non-fasting) (01/16/2019 7:49 AM EDT) P athologist Signature Glucose Lvl 105 65 - 199 [facility] mg/dL [facility] Comment: Diabetes: >=200 mg/dL plus symp toms BUN 25 (H) 10 - 20 mg/dL [facility] Creatinine 1.08 0.80 - 1.50 mg/dL [facility] Sodium 145 135 - 145 mmol/L [facility] Potassium 4.7 3.5 - 5.0 mmol/L [facility] Comment: Please note: ??Patients with WBC >100,00 0 may have falsely elevated Potassium levels. ??For accurate Potassium quantif ication in these patients send serum separator tube (gold top) for subsequent determinations. ??Contact the Clinical Chemistry Laboratory if there are any qu estions. Chloride 106 98 - 107 mmol/L [facility] CO2 26 22 - 31 mmol/L [facility] Anion Gap 13 5 - 15 mmol/L [facility] Calcium 9.2 8.5 - 10.5 mg/dL [facility] Estimated GFR 68 >=60 mL/min/1.73 m?? [facility] Comment: The eGFR was calculated using the CKD-EP I equation. As with all creatinine based estimates of kidney function, eGFR values calculated with the CKD-EPI equation are not accurate in patients wi th acute kidney failure, extremes of body mass or the acutely ill. http://Sigma Force/[facility]nk[facility] eGFR 79 >=60 mL/min/1.73 m?? [facility] Comment: The eGFR was calculated using the CKD-EP I equation. As with all creatinine based estimates of kidney function, eGFR values calculated with the CKD-EPI equation are not accurate in patients wi th acute kidney failure, extremes of body mass or the acutely ill. http://Sigma Force/DHMCnkf Specimen Anatomical Collection Method Collection Time Receive d Time (Source) Location / / Volume Laterality Blood specimen 01/16/2019 7:49 AM 019 7:55 (specimen) EDT AM EDT Resulting Agency Comment Spec In Lab Danette Maxwell APRN CHEMISTRY ORDERABLES Performing Organization Address City/State/[place] [address] (ABNORMAL) pro-Brain Natriuretic Peptide (01/16/2019 7:49 AM EDT) P athologist Signature ProBNP 780 (H) <=125 pg/mL [facility] Specimen Anatomical Collection Method Collection Time Receive d Time (Source) Location / / Volume Laterality Blood specimen 01/16/2019 7:49 AM 019 7:55 (specimen) EDT AM EDT Resulting Agency Comment Spec In Lab Danette Maxwell APRN CHEMISTRY ORDERABLES Performing Organization Address City/State/[place] [address] documented in this encounter Visit Diagnoses Diagnosis Chronic systolic heart failure Cardiomyopathy, ischemic Other specified forms of chronic ischemi c heart disease Hx of thyroid cancer Personal history of malignant neoplasm o f thyroid ASHD (arteriosclerotic heart disease) Coronary atherosclerosis of unspecified type of vessel, [place] or graft MARIA VICTORIA (obstructive sleep apnea) on CPAP Obstructive sleep apnea (adult) (pediatr ic) Chronic systolic heart failure documented in this encounter Care Teams Straightening Machine Feeder Relationship Specialty Start Date End Date Lovely Vicente MD PCP - General 04/16/[address] [place] [address] documented as of this encounter
--- OUTSIDE RECORDS SUMMARY | 2022-02-20 01:42 | XMS_ITS | Encounter Summary ---
:1945 Author Organization [facility] [place] [address] Care Team Providers Name Role Phone Lovely Vicente MD Primary Care Provider Encounter Details Date Type Department Care Team Description 09/07/2017 Laboratory Appointment Lab 3L [facility] Hx of [facility] [place] [id number] Social History Tobacco Use Types Packs/Day Years [...] MD [facility] CARDIOLOGY [place], [place] [address] (Wo rk) documented [...] PM EST) athologist Signature Thyroglobulin 1.4 <=54.9 [facility] ng/mL [facility] Comment: Thyroglobulin levels may be unreliable [...] Thyroglob Ab <20.0 0.0 - 40.0 IU/mL [facility] Comment: Assay performed is the [...] Address City/State/[place] [address] TSH (09/07/2017 2:41 PM EST) athologist Signature TSH 3.93 0.27 - 4.20 [facility] mlU/ML [facility] Specimen Anatomical Collection Method Collection Time Receive d Time (Source) Location / / Volume Laterality Blood specimen 09/07/2017 2:41 PM 018 2:46 (specimen) EST PM EST Resulting Agency Comment Spec In Lab Luz Prescott MD CHEMISTRY ORDERABLES Performing Organization Address City/State/[place] [address] documented in this encounter Visit Diagnoses Diagnosis Hx of papillary thyroid carcinoma Personal history of malignant neoplasm o f thyroid documented in this encounter Care Teams Municipal Firefighter Relationship Specialty Start Date End Date Lovely Vicente MD PCP - General 04/16/[address] [place] [address] documented as of this encounter
--- OUTSIDE RECORDS SUMMARY | 2022-02-20 01:42 | XMS_ITS | Encounter Summary ---
:1945 Author Organization [facility] [place] [address] Care Team Providers Name Role Phone Lovely Vicente MD Primary Care Provider Encounter Details Date Type Department Care Team Description 08/30/2017 [facility] ischemia [facility] [address] [place] V[place] [address] [place] [address] [phone] Social History Tobacco Use Types Packs/Day Years [...] Patient Instructions Patient InstructionsGoYonathan allen MD - 08/30/2017 2:00 PM EST Call if any questions documented in this encounter Progress Notes Yonathan Smith MD - 08/30/2017 2:00 PM EST [facility] staff: Patient returns. He [...] Office Visit Cardiology Vitaliy Nobles MD [facility] CARDIOLOGY [place], [place] [address] (Wo rk) documented as of this encounter Visit Diagnoses Diagnosis Critical lower limb ischemia Unspecified circulatory system disorder documented in this encounter Care Teams Robot Programmer Relationship Specialty Start Date End Date Lovely Vicente MD PCP - General 04/16/[address] [place] [address] documented as of this encounter
--- OUTSIDE RECORDS SUMMARY | 2022-02-20 01:42 | XMS_ITS | Encounter Summary ---
:1945 Author Organization [facility] [place] [address] Care Team Providers Name Role Phone Lovely Vicente MD Primary Care Provider Encounter Details Date Type Department Care Team Description 09/07/2017 Office Visit Endocrinology at [facility] Maria Ines Stallings of [facility] MD [place] [address] CENTER [phone] ENDOCRINOLOGY DEPT [place], [place] [address] Social History Tobacco Use Types [...] Cardiology Vitaliy Nobles MD [facility] ER DR TADEO [place], [place] [address] (Wo rk) documented as of this encounter Visit Diagnoses Diagnosis Hx of papillary thyroid carcinoma Personal history of malignant neoplasm o f thyroid documented in this encounter Care Teams Box Sealing Machine Feeder Relationship Specialty Start Date End Date Lovely Vicente MD PCP - General 04/16/[address] [place] [address] documented as of this encounter
--- OUTSIDE RECORDS SUMMARY | 2022-02-20 01:42 | XMS_ITS | Encounter Summary ---
:1945 Author Organization [facility] [place] [address] Care Team Providers Name Role Phone Lovely Vicente MD Primary Care Provider Reason for Visit Reason Comments Follow-up Encounter Details Date Type Department Care Team Description 08/19/2017 Office Visit Cardiac Surgery at [place], Jock S/P C ABG (coronary [facility] N, artery bypass graft) [facility] [place] CARDIOTHORACIC [address] SURGERY [phone] [place], [place] [address] Social History Tobacco Use Types [...] office. Best personal regards, Yuan [facility] MD [phone] documented in this encounter Plan of Treatment Upcoming Encounters Date Type Specialty Care Team Description 03/26/2022 Office Visit Cardiology Vitaliy Nobles MD [facility] CARDIOLOGY [place], [place] [address] (Wo rk) documented as of [...] 454 ms MUSE SYSTEM (Bezet) Calculated P [place] 20 degrees MUSE SYSTEM Calculated R [place] -29 degrees MUSE SYSTEM Calculated T [place] 121 degrees MUSE SYSTEM INTERPRETATION Normal sinus rhythm MUSE SYSTEM Inferior infarct (cited on or before 25-JAN-2013) Anterior 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) T wave abnormality, consider lateral ischemia Abnormal ECG When compared with ECG of 06-AUG-2017 12:37, No signif icant change was found Confirmed by MD Luci, Taurus Braun ([id number]) on 08/19/2017 1 0:37:38 PM Specimen Anatomical [...] status documented in this encounter Care Teams Band Saw Runner Relationship Specialty Start Date End Date Lovely Vicente MD PCP - General 04/16/[address] [place] [address] documented as of this encounter
--- OUTSIDE RECORDS SUMMARY | 2022-02-20 01:42 | XMS_ITS | Encounter Summary ---
:1945 Author Organization [facility] [place] [address] Care Team Providers Name Role Phone Lovely Vicente MD Primary Care Provider Reason for Referral Diagnostic Test (Routine) - Closed Specialty Diagnoses / Procedures Referred By Contact Refer red To Contact Cardiology Diagnoses Ischemic cardiomyopathy Acute on chronic systolic congestive heart failure Danette Maxwell APRN [facility] Non-Inv Card Lab Procedures Echocardiogram Transthoracic(Leb) [facility] [place] [address] [place] [address] Referral ID Status Reason Start Date Expiration Date Visits V isits Requested Authorized [id number] Closed Specialty 08/30/2017 08/30/2018 1 1 Service Requested Encounter Details Date Type Department Care Team Description 08/26/2017 Office Visit Cardiology at [facility] Danette Maxwell Ischemic cardiomyopathy; [facility] STACIE Gomes Acute on chronic systolic congestive hea rt failure ; Drive 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 [...] Visit Cardiology Vitaliy Nobles MD [facility] [address] CARDIOLOGY [place], [place] [address] (Wo rk) documented as of this encounter Results ECHOCARDIOGRAM COMPLETE W CONTRAST (10/07/2017 10:23 AM EDT) P athologist Signature EF 45 [employer] SYSTEM Specimen (Source) Anatomical Location Collection Method / Collectio n Time Received Time / Laterality Volume 10/07/2017 Narrative [facility] - 10/07/2017 11:13 AM ED T Procedure: ?Transthoracic Echocardiogram Patient: ?NATALYA Mccollum ? (Age): 1945(72y) Med Rec#: ? [id number] ?Sex: ?M ? Site Loc: ? [facility] ?Ht / Wt: ??173(cm)/82(kg) Pt. Loc: ?Echo Lab ?BSA: ?1.96 Study Date: ?? 10/07/2017 ?Pt. Type: Outpatient Tape: ? Referring: Danette Maxwell Reading: Iker Cuevas ([id number]) Batching Operator: Yonathan Bocanegra Diagnosis: *ICD-10-PCS Ischemic cardiomyopathy [...] E-wave Vmax ?1.2 ?m/sec ? MV deceleration [id number] ?msec ? MV A-wave Vmax ?1 ?m/sec [...] ? Mid-Inferior ?Hypokinetic ? Mid-Inferoseptal ?Hypokinetic ? [place]-Septal ? Akinetic ? [place]-Anterior ? Hypokinetic ? [place]-Lateral ?Hypokinetic ? [place]-Inferior ? Hypokinetic ? [place]-Tip ?Akinetic ? This report has been electronically sign ed by: _ Iker Cuevas M.D. ? 10/07/2017 11:12:34 Images reviewed and interpretation verif ied [facility] Procedure Note Iker Cuevas MD - 10/07/2017Formatti ng of this note might be different from the original. Procedure: Transthoracic Echocardiogram Patient: NATALYA MCBRIDE(Age): [birth year]72y) Med Rec#: [id number] Sex: M Site Loc: [facility] Ht / Wt: 173(cm)/82(kg) Pt. Loc: Echo Lab BSA: 1.96 Study Date: 10/07/2017 Pt. Type: Outpati ent Tape: Referring: Danette Maxwell Reading: Iker Cuevas ([id number]) Batching Operator: Yonathan Bocanegra Diagnosis: *ICD-10-PCS Ischemic cardiomyopathy [...] MV E-wave Vmax 1.2 m/sec MV deceleration [id number] msec MV A-wave Vmax 1 m/sec MV [...] Akinetic Mid-Posterolateral Hypokinetic Mid-Inferior Hypokinetic Mid-Inferoseptal Hypokinetic [place]-Septal Akinetic [place]-Anterior Hypokinetic [place]-Lateral Hypokinetic [place]-Inferior Hypokinetic [place]-Tip Akinetic This report has been electronically sign ed by: _ Iker Cuevas M.D. 10/07/2017 11:12 :34 Images reviewed and interpretation verif ied [facility] Danette Maxwell APRN ECHO ORDERABLES Performing Organization Address City/State/ZIP Code Phon e Number [facility] Basic Metabolic Panel (non-fasting) (08/26/2017 2:00 PM EST) P athologist Signature Glucose Lvl 98 65 - 199 [facility] mg/dL [facility] Comment: Diabetes: >=200 mg/dL plus symp toms BUN 20 10 - 20 mg/dL [facility] Creatinine 1.17 0.80 - 1.50 mg/dL [facility] [...] mmol/L [facility] Anion Gap 14 5 - 15 mmol/L [facility] Calcium 9.1 8.5 - 10.5 mg/dL [facility] Estimated GFR >60 >=60 [facility] Comment: The reported eGFR should be multiplied b y 1.2 for patients. The MDRD is not an appropriate measure o f renal function for patients with body mass extremes or in patients with acute kidney failure. http://D[employer] Tracking/DHnkdep http://[employer]/DHMCnkf Specimen Anatomical Collection Method Collection Time Receive d Time (Source) Location / / Volume Laterality Blood specimen 08/26/2017 2:00 PM 018 2:15 (specimen) EST PM EST Resulting Agency Comment Spec In Lab Danette Maxwell PRICE LISTER CHEMISTRY ORDERABLES Performing Organization Address City/State/[place] [address] (ABNORMAL) pro-Brain Natriuretic Peptide (08/26/2017 2:00 PM EST) P athologist Signature ProBNP 2,373 (H) <=125 [facility] pg/mL [facility] Specimen Anatomical Collection Method Collection Time Receive d Time (Source) Location / / Volume Laterality Blood specimen 08/26/2017 2:00 PM 018 2:15 (specimen) EST PM EST Resulting Agency Comment Spec In Lab Danette Maxwell STACIE CHEMISTRY ORDERABLES Performing Organization Address City/State/[place] [address] documented in this encounter [...] failure documented in this encounter Care Teams Railcar Mechanic Relationship Specialty Start Date End Date Lovely Vicente MD PCP - General 04/16/[address] [place] [address] documented as of this encounter
--- OUTSIDE RECORDS SUMMARY | 2022-02-20 01:42 | XMS_ITS | Encounter Summary ---
:1945 Author Organization [facility] [place] [address] Care Team Providers Name Role Phone Lovely Vicente MD Primary Care Provider Encounter Details Date Type Department Care Team Description 08/25/2017 Telephone Pain Management at [facility] [place], [place] [address] Social History Tobacco Use Types Packs/Day [...] Management Center Preauthorization Request Patient: Don Fatima [id number] Fax received from [employer] denying prior authorization for Lidocaine Patches prescribed by Barbra Soares APRN. RX insurance plan: [employer] RX insurance telephone: [phone] Patient Diagnosis: right foot pain secondary to PVD and ischemia ? Previous medications attempted: Tylenol, Tramadol, Dilaudid Authorization/Reference number: [id number] _x_ denied, provider and patient informed _x_ appeal initiated by provider, patient informed Angeles Rodrigez, RN documented in this encounter Plan of Treatment Upcoming Encounters Date Type Specialty Care Team Description 03/26/2022 Office Visit Cardiology Vitaliy Nobles MD [facility] ER CARDIOLOGY [place], [place] [address] (Wo rk) documented as of this encounter Visit Diagnoses Not on filedocumented in this encounter Care Teams Engine Buildup Mechanic Relationship Specialty Start Date End Date Lovely Vicente MD PCP - General 04/16/[address] [place] [address] documented as of this encounter
--- OUTSIDE RECORDS SUMMARY | 2022-02-20 01:42 | XMS_ITS | Encounter Summary ---
:1945 Author Organization [facility] [place] [address] Care Team Providers Name Role Phone Lovely Vicente MD Primary Care Provider Reason for Visit Reason Onset Date Comments VNA Calls 08/30/2017 Encounter Details Date Type Department Care Team Description 08/30/2017 Telephone Vascular Surgery at [facility] Cora Reid RN VNA Calls [facility] [place] [address] Social History Tobacco Use Types Packs/Day [...] 08/30/2017 11:16 AM EST Caller: Alfonso at [facility] [phone] Reason for call: Changing his wound vac [...] Alfonso who had been in contact with [facility]'s Wound Care Nurse who advised him to [...] Visit Cardiology Vitaliy Nobles MD [facility] ER CARDIOLOGY [place], [place] [address] (Wo rk) documented as of this encounter Visit Diagnoses Not on filedocumented in this encounter Care Teams Test Preparer Relationship Specialty Start Date End Date Lovely Vicente MD PCP - General 04/16/[address] [place] [address] documented as of this encounter
--- OUTSIDE RECORDS SUMMARY | 2022-02-20 01:42 | XMS_ITS | Encounter Summary ---
:1945 Author Organization [facility] [place] [address] Care Team Providers Name Role Phone Lovely Vicente MD Primary Care Provider Encounter Details Date Type Department Care Team Description 08/19/2017 Office Visit Vascular Surgery at [place], PAD (peripheral artery [facility] USER SUPPORT ANALYST disease) [facility] [address] [place], [place] VASCULAR SURGERY [address] [place] [address] [phone] Social History Tobacco Use Types Packs/Day Years [...] Vitaliy Nobles MD [facility] DR CARDIOLOGY [place], [place] [address] (Wo rk) documented as of this encounter Visit Diagnoses Diagnosis PAD (peripheral artery disease) Peripheral vascular disease, unspecified documented in this encounter Care Teams Circus Supervisor Relationship Specialty Start Date End Date Lovely Vicente MD PCP - General 04/16/[address] [place] [address] documented as of this encounter
--- OUTSIDE RECORDS SUMMARY | 2022-02-20 01:42 | XMS_ITS | Encounter Summary ---
:1945 Author Organization [facility] [place] [address] Care Team Providers Name Role Phone Lovely Vicente MD Primary Care Provider Encounter Details Date Type Department Care Team Description 09/06/2017 Telephone Vascular Surgery at [facility] Ninfa Clark, [place] [address] Social History Tobacco Use Types Packs/Day [...] Visit Cardiology Vitaliy Nobles MD [facility] ER CARDIOLOGY [place], [place] [address] (Wo rk) documented as of this encounter Visit Diagnoses Not on filedocumented in this encounter Care Teams Sales Correspondent Relationship Specialty Start Date End Date Lovely Vicente MD PCP - General 04/16/[address] [place] [address] documented as of this encounter
--- OUTSIDE RECORDS SUMMARY | 2022-02-20 01:42 | XMS_ITS | Encounter Summary ---
:1945 Author Organization [facility] [place] [address] Care Team Providers Name Role Phone Lovely Vicente MD Primary Care Provider Encounter Details Date Type Department Care Team Description 09/03/2017 Telephone Vascular Surgery at [facility] Ninfa Clark, [place] [address] Social History Tobacco Use Types Packs/Day [...] help with the discomfort of the change. Couture Dressmaker told the VNA that I would ask [...] 03/26/2022 Office Visit Cardiology Vitaliy Nobles MD [facility] ER CARDIOLOGY [place], [place] [address] (Wo rk) documented as of this encounter Visit Diagnoses Not on filedocumented in this encounter Care Teams Recyclable Materials Distributor Relationship Specialty Start Date End Date Lovely Vicente MD PCP - General 04/16/[address] [place] [address] documented as of this encounter
--- OUTSIDE RECORDS SUMMARY | 2022-02-20 01:42 | XMS_ITS | Encounter Summary ---
:1945 Author Organization [facility] [place] [address] Care Team Providers Name Role Phone Lovely Vicente MD Primary Care Provider Reason for Referral Consultation (Routine) - Specialty Diagnoses / Procedures Referred By Contact Refer red To Contact Wound Healing Center Diagnoses Atheroembolism of foot, right Delayed surgical wound healing, subsequent encounter Aurelia Rivera PA [address] [facility] [place] [address] Referral ID Status Reason Start Date Expiration Date Visits V isits Requested Authorized [id number] Consult, 09/08/2017 03/07/2018 1 1 Test & Treat Reason for Visit Reason Comments Wound Check My foot hurts Encounter Details Date Type Department Care Team Description 09/07/2017 Office Visit Vascular Surgery at MiguelAurelia PA Atheroembolism of foot, right; [facility] Delayed surgical wound healing, subseque nt encounter [facility] [place] [address] [phone] Social History Tobacco Use Types Packs/Day Years [...] at home for VAC dressing changes from [facility]. Since his last visit his right forefoot wound VAC care has improved [facility] maintained a better seal with [...] SETUP performed by Manny Mcknight MD at [facility] MAIN OR ??? PRO AMPUTATION FOOT, TRANSMETATARSAL Right 08/09/2017 AMPUTATION, TRANSMETATARSAL (WRVU 12.71) performed by Yonathan Smith MD at [facility] MAIN OR ??? PRO CABG, ARTERIAL, SINGLE N/A 07/07/2017 @CABG, USING ARTERIAL GRAFT;SINGLE ARTERIAL GRAFT (WRVU 33.75) performed by Yuan Retana MD at [facility] MAIN OR ??? PRO CABG, ARTERY-VEIN, TWO N/A 07/07/2017 @CABG, TWO VENOUS GRAFTS & ARTERIAL GRAFT (WRVU 7.93) performed by Yuan Retana MD at [facility] MAIN OR ??? PRO COLONOSCOPY, REMV LESN, SNARE 01/16/2014 COLONOSCOPY, POLYPECTOMY, REMOVAL LESION BY SNARE performed by Nohemi Jaimes MD at [facility] ENDOSCOPY ??? PRO DRESSING CHANGE UNDER ANESTHESIA Right 08/11/2017 (MSURG) DRESSING CHANGE (FOR OTHER THAN IVAN) UNDER ANES. (WRVU 0.86) performed by Lamar Smith MD at [facility] MAIN OR ??? PRO ENDOSCOPY W/VIDEO-ASST VEIN HARVEST, CABG Right 07/07/2017 ENDOSCOPIC HARVEST VEIN(S) FOR CABG (WRVU 0.31) performed by Yuan Retana MD at [facility] MAIN OR ??? PRO THYROIDECTOMY 03/28/2013 THYROIDECTOMY, TOTAL OR COMPLETE performed by Manny Mcknight MD at [facility] OR Social Hx: Social History Substance [...] Nobles MD [facility] CARDIOLOGY [place], [place] [address] (Wo rk) Scheduled Referrals Name Type Priority Associated Diagnoses Order S chedule Referral to Wound Outpatient Referral Routine Atheroembolism o f foot, Ordered: Clinic right 09/08/2017 Delayed surgical wound healing, subsequent encounter documented as of this encounter Visit Diagnoses Diagnosis Atheroembolism of foot, right Delayed surgical wound healing, subseque nt encounter documented in this encounter Care Teams Bull Gang Supervisor Relationship Specialty Start Date End Date Lovely Vicente MD PCP - General 04/16/[address] [place] [address] [address] [place] [address] documented as of this encounter
--- OUTSIDE RECORDS SUMMARY | 2022-02-20 01:42 | XMS_ITS | Encounter Summary ---
:1945 Author Organization [facility] [place] [address] Care Team Providers Name Role Phone Lovely Vicente MD Primary Care Provider Reason for Visit Reason Comments Follow-up I'm having trouble with the VAC Encounter Details Date Type Department Care Team Description 08/26/2017 Office Visit Vascular Surgery at [facility] STEPHANIE Mercado Atheroembolism of foot, right; [facility] [address] Delayed surgical wound healing, initial encounter; [facility] VASCULAR SURG [place] Acute on chronic systolic congestive hea rt failure ; [place], [place] [address] [phone] Social History Tobacco Use Types Packs/Day Years [...] [facility]. However, since discharge [facility] he has had some difficulty with continuation [...] [facility] MAIN OR ??? PRO AMPUTATION FOOT, TRANSMETATARSAL Right 08/09/2017 AMPUTATION, TRANSMETATARSAL (WRVU 12.71) performed by Yonathan Smith MD at [facility] MAIN OR [...] at [facility] ENDOSCOPY ??? PRO DRESSING CHANGE UNDER ANESTHESIA Right 08/11/2017 (MSURG) DRESSING CHANGE (FOR OTHER THAN IVAN) UNDER ANES. (WRVU 0.86) performed by Lamar Smith MD at [facility] MAIN OR ??? PRO ENDOSCOPY W/VIDEO-ASST VEIN HARVEST, CABG Right 07/07/2017 ENDOSCOPIC HARVEST VEIN(S) FOR CABG (WRVU 0.31) performed by Yuan Retana MD at [facility] MAIN OR ??? PRO THYROIDECTOMY 03/28/2013 THYROIDECTOMY, TOTAL OR COMPLETE performed by Manny Mcknight MD at [facility] MAIN OR Social Hx: Social History [...] Nobles MD [facility] CARDIOLOGY [place], [place] [address] (Wo rk) documented as of [...] [facility] Range Method Time Signature VB Text Department: Vascular Surgery Lab VASCUBASE Report Patient: [id number] (GREGORY HOANG) CPT: 44803 ICD10: T81.89XA;I75.021 Referring Physician: ARIK BLOOM ?? [...] Signature Glucose Lvl 98 65 - 199 [facility] mg/dL [facility] Comment: Diabetes: >=200 mg/dL plus symp toms BUN 20 10 - 20 mg/dL [facility] Creatinine 1.17 0.80 - 1.50 mg/dL [facility] Sodium 140 135 - 145 mmol/L [facility] Potassium 4.8 3.5 - 5.0 mmol/L [facility] [...] Anion Gap 14 5 - 15 mmol/L [facility] Calcium 9.1 8.5 - 10.5 mg/dL [facility] Estimated GFR >60 >=60 [facility] Comment: The reported eGFR should be multiplied b y 1.2 for patients. The MDRD is not an appropriate measure o f renal function for patients with body mass extremes or in patients with acute kidney failure. http://[employer]/DHnkdep http://[employer]/DHMCnkf Specimen Anatomical Collection Method Collection Time Receive d Time (Source) Location / / Volume Laterality Blood specimen 08/26/2017 2:00 PM 018 2:15 (specimen) EST PM EST Resulting Agency Comment Spec In Lab Danette Maxwell APRN CHEMISTRY ORDERABLES Performing Organization Address City/[facility]/ZIP [place] [address] (ABNORMAL) pro-Brain Natriuretic Peptide (08/26/2017 2:00 PM EST) P athologist Signature ProBNP 2,373 (H) <=125 [facility] pg/mL [facility] Specimen Anatomical Collection Method Collection Time Receive d Time (Source) Location / / Volume Laterality Blood specimen 08/26/2017 2:00 PM 018 2:15 (specimen) EST PM EST Resulting Agency Comment Spec In Lab Danette Maxwell APRN CHEMISTRY ORDERABLES Performing Organization Address City/State/[place] [address] documented in this encounter Visit Diagnoses Diagnosis Atheroembolism of foot, right Delayed surgical wound healing, initial encounter Acute on chronic systolic congestive hea rt failure Acute on chronic systolic heart failure Ischemic cardiomyopathy Other specified forms of chronic ischemi c heart disease documented in this encounter Care Teams Tax Compliance Agent Relationship Specialty Start Date End Date Lovely Vicente MD PCP - General 04/16/[address] [place] [address] documented as of this encounter
--- OUTSIDE RECORDS SUMMARY | 2022-02-20 01:42 | XMS_ITS | Encounter Summary ---
:1945 Author Organization [facility] [place] [address] Care Team Providers Name Role Phone Lovely Vicente MD Primary Care Provider Encounter Details Date Type Department Care Team Description 08/19/2017 Hospital Encounter XRay at [facility] Martha Teague, S/P CABG x [address] [facility] [place] [address] [place] [address] RD [phone] GENERAL INTERNAL MEDICINE [place], [place] [address] (Wo rk) Social History [...] Cardiology Vitaliy Nobles MD [facility] ER CARDIOLOGY [place], [place] [address] (Wo rk) documented as of [...] AM Martha Teague APRN IMG DX ORDERABLES documented in this encounter Visit Diagnoses Diagnosis S/P CABG x 3 Postsurgical aortocoronary bypass status documented in this encounter Care Teams Microbiology Teacher Relationship Specialty Start Date End Date Lovely Vicente MD PCP - General 04/16/[address] [place] [address] documented as of this encounter
--- OUTSIDE RECORDS SUMMARY | 2022-02-20 01:42 | XMS_ITS | Encounter Summary ---
:1945 [place] [address] Care Team Providers Name Role Phone Lovely Vicente MD Primary Care Provider Encounter Details Date Type Department Care Team Description 08/26/2017 Hospital Encounter [facility] Athero embolism of foot, right; [place], [place] Delayed surgi nusrat wound healing, [place] [phone] Social History Tobacco Use Types Packs/Day Years [...] Nobles MD [facility] CARDIOLOGY [place], [place] [address] (Wo rk) documented [...] [facility] Range Method Time Signature VB Text Department: Vascular Surgery Lab VASCUBASE Report Patient: [id number] (DON HOANG) CPT: 61691 ICD10: T81.89XA;I75.021 Referring Physician: ELVER BLOOM ?? [...] encounter documented in this encounter Care Teams Claims Service Adjustor Relationship Specialty Start Date End Date Lovely Vicente MD PCP - General 04/16/[address] [place] [address] documented as of this encounter
--- OUTSIDE RECORDS SUMMARY | 2022-02-20 01:43 | XMS_ITS | Encounter Summary ---
:1945 [place] [address] Care Team Providers Name Role Phone Lovely Vicente MD Primary Care Provider Reason for Visit Auth/Cert Specialty Diagnoses / Procedures Referred By Contact Refer red To Contact Diagnoses Critical lower limb ischemia CELLULITIS RT FOOT Procedures EMERGENCY Referral ID Status Reason Start Date Expiration Date Visits Requ ested Visits Authorized [id number] 1 1 Encounter Details Date Type Department Care Team Description 08/06/2017 - Hospital Encounter 5 Yonathan Oneill lower limb ischemia; 08/16/2017 Su Flores MD Ischemic foot Hospital [facility] [address] [place] [id number] [phone] Social History Tobacco Use Types Packs/Day Years [...] 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 Patient [...] Dorsalis Pedis (Ankle) Artery ?132 ? 0.94 ??Marathon-Biphasic ? Posterior Tibial (Ankle) Artery ??154 ? 1.10 ??Marathon-Biphasic ? Fourth Toe ? 67 ?0.48 ?? [...] the foot. Discharge Conditions/Prognosis: Good Discharge to: [facility] Rehab Discharge Medications: Your Medications New Medications [...] For any problems or questions please call [phone] ZELDA Smith, court crier Nurse Clinician For issues on weeknights after 5pm and weekends please call [phone] and ask for the Vascular Fellow head control clerk. General Instructions None Future Appointments and Orders Future Appointments Provider Department Dept Phone 08/26/2017 4:00 PM Aurelia Rivera PA V[facility] Surgery [facility] [place] [phone] 09/07/2017 3:00 PM LAB, THREE L Lab 3L [facility] [phone] 09/07/2017 4:00 PM Luz Prescott MD Endocrinology at [place] [phone] 09/09/2017 8:00 AM Barbra Soares APRN Pain Management [facility] [place] [phone] Please bring a list of your current [...] For any problems or questions please call [phone] ZELDA Smith, court crier Nurse Clinician For issues on weeknights after 5pm and weekends please call [phone] and ask for the Vascular Fellow head control clerk. documented in this encounter Medications at Time [...] of Care Management Discharge Note Patient Destination: [facility] ([facility] [address] [place] [address] Transportation: with (at bedside) Time of Discharge: by 12 noon Level of Care: swing Patient Aware: yes Family Notified: yes Md to call report to: Yissel Quintero CASE MANAGEMENT ASSISTANT already called RN to call report to: [phone] Shirin Wolf Office of Care Management Pager [phone] Shirin Wolf RN - 08/16/2017 10:50 AM EST [facility] has offered pt swing bed. Pt and accept bed. will transport via car. CASE MANAGEMENT ASSISTANT Yissel Quintero aware; d/c paperwork will be completed by 12 noon. [facility] requests pt arrival by 1400 today; CASE MANAGEMENT ASSISTANT, RN, and family aware. CASE MANAGEMENT ASSISTANT called [facility] and was told that they prefer pt to arrive with wound vac dressing applied but clamped. CASE MANAGEMENT ASSISTANT applied new wound vac dressing. RN has [facility] number to call report. PASSR completed; CASE MANAGEMENT ASSISTANT paged to request provider signature in highlighted space. Indigo from [facility] notified via email that home wound vac now cancelled; [facility] has picked up from room and order cancelled. Packet started and provided to unit aide. Medicare important message explained to patient, patient signed. Copy provided to patient and signature page to OCM for inclusion in pt EMR. Radha Georges - 08/16/2017 10:34 AM EST Office of Care Management/Soil Biology Teacher Patient Name: Gregory Hoang : 1945 Patient has been offered a swing bed at [facility]. The patient will be transported by private transportation. No MD to MD report necessary Please call Nursing Report to [phone], ask for ski production supervisor. Info to accompany patient: Narcotic Prescriptions Copies of Medication Administration Records and IV sheets for past 10 days. Plan: Soil Biology Teacher will be available to the patient and Magazine Worker-RN and/or Extension Work Instructor for further assistance. Patient will be discharged to: [place] [phone] Radha Powers, Soil Biology Teacher Mira Black, VAMSI - 08/15/2017 10:05 PM EST [address] Flores to ask if he wanted to hold metoprolol dose. BP 95/58. OK to hold this dose Courtney Brito - 08/15/2017 3:26 PM EST Office of Care Management(OCM)/Soil Biology Teacher(RS)/ D/C Planning re : Patient is medically ready for d/c today. RS has been in contact with [facility] to see if they could offer a bed. [facility] is still reviewing the case and need their MD to review chart prior to accepting or declining. OCM team needs to check in with [facility] tomorrow to check on status. 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 Vac in place. Rehab referrals ongoing. Can ambulate in hallway. Change VAC at bedside today. Naty Colindres RN - 08/14/2017 1:33 PM EST Patient Name: Gregory Honag Patient Age: 72 y.o. Birthdate: 1945 Admit date: 08/06/2017 Attending Physician: Yonathan Smith MD We want him to go to a place for intensive therapy and not at a intermediate where he will be just sitting there and not getting any therapy. . Contacted by direct care RN, who said that patient and would like information about patient's referral to: [facility] PHONE: [phone] FAX: [phone] CM spoke with RS who said that [...] would be accepted to acute rehab at [facility] as Dr. Smith had recommended . [...] rehab. Await recommendations from PT. Covering pager #[phone]. 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 Setter Up Kaitlin Saha, RN Pager #[phone] Payam Rosales - 08/13/2017 2:37 PM EST Seo Expert Encounter Note Patient Name: Gregory Hoang : [id number] MR#: [id number] Admit Date: 08/06/2017 1:41 PM Hospital Day 7 days Narrative: Visited to introduce and assess acceptance of Se[facility] Expert services. Pt was awake, alert, oriented and in chair and family was there. Assessment:Patient coping positively with stresses of illness/hospitalization at this time. Pt says that he is hoping to get better and his family was there. Pt says that he has family care and supportand taking one day at time. Intervention and Outcome: Provided emotional support and encouraging presence. 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 A letter describing our affiliations was reviewed with them and theywere educated about their right to choose where referrals are placed. Patient requests referral to [facility]. PHONE: [phone] FAX: [phone]. And Home NPWT (Negative Pressure Wound Therapy) aka wound vac device made available to pt. Serial # confirmed. Reviewed [facility] Proof of Delivery/Assignment of Benefits Statement(POD/AOB) Form w patient or authorized agent signing on behalf of patient. Copy of POD/AOB provided to pt and other copy faxed to [employer] @ fax# [phone] Expected date of discharge: 08/12/2017. Referral routed to the Soil Biology Teacher for matching with agency/vendor and to provide any required information. Yonathan Starkey MD - 08/12/2017 8:05 AM EST vasc staff: Pain better. Needs ambulatory assessment. Try to use heel block shoe, if not flat shoe ok. Decisionsaround rehab planning versus home thereafter Viry Starkey MD - 08/12/2017 7:52 AM EST Vascular Surgery Progress Note ID: Gregory Hoagn is a 72 y.o. 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 Address: [address] [place] [address] [place] [address] (home) Mobile: Telephone Information: Referring Provider: No [...] [facility] ??? PRO CABG, ARTERIAL, SINGLE N/A 07/07/2017 @CABG, USING ARTERIAL GRAFT;SINGLE ARTERIAL GRAFT (WRVU 33.75) performed by Yuan Retana MD at [facility] MAIN OR ??? PRO CABG, ARTERY-VEIN, TWO N/A 07/07/2017 @CABG, TWO VENOUS GRAFTS & ARTERIAL GRAFT (WRVU 7.93) performed by Yuan Retana MD at [facility] MAIN OR ??? PRO COLONOSCOPY, REMV LESN, SNARE 01/16/2014 COLONOSCOPY, POLYPECTOMY, REMOVAL LESION BY SNARE performed by Nohemi Jaimes MD at [facility] ENDOSCOPY ??? PRO ENDOSCOPY W/VIDEO-ASST VEIN HARVEST, CABG Right 07/07/2017 ENDOSCOPIC HARVEST VEIN(S) FOR CABG (WRVU 0.31) performed by Yuan Retana MD at [facility] MA[facility] OR ??? PRO THYROIDECTOMY 03/28/2013 THYROIDECTOMY, TOTAL OR COMPLETE performed by Manny Mcknight MD at 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 Heparin gtt continues to run. Pt [...] of : 1945 AGE 72 y.o. Address: [address] [place] [address] [place] [address] (home) Mobile: Telephone Information: Referring Provider: No [...] [facility] ??? PRO CABG, ARTERIAL, SINGLE N/A 07/07/2017 @CABG, USING ARTERIAL GRAFT;SINGLE ARTERIAL GRAFT (WRVU 33.75) performed by Yuan Retana MD at [facility] MA[facility] OR ??? PRO CABG, ARTERY-VEIN, TWO N/A 07/07/2017 @CABG, TWO VENOUS GRAFTS & ARTERIAL GRAFT (WRVU 7.93) performed by Yuan Retana MD at [facility] MAIN OR ??? PRO COLONOSCOPY, REMV LESN, SNARE 01/16/2014 COLONOSCOPY, POLYPECTOMY, REMOVAL LESION BY SNARE performed by Nohemi Jaimes MD at [facility] ENDOSCOPY ??? PRO ENDOSCOPY W/VIDEO-ASST VEIN HARVEST, CABG Right 07/07/2017 ENDOSCOPIC HARVEST VEIN(S) FOR CABG (WRVU 0.31) performed by Yuan Retana MD at [facility] OR ??? PRO THYROIDECTOMY 03/28/2013 THYROIDECTOMY, TOTAL OR COMPLETE performed by Manny Mcknight MD at 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 Vascular resident head control clerk and will forward result to the team prior to rounds. 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 Patient [...] [facility] ??? PRO CABG, ARTERIAL, SINGLE N/A 07/07/2017 @CABG, USING ARTERIAL GRAFT;SINGLE ARTERIAL GRAFT (WRVU 33.75) performed by Yuan Retana MD at [facility] MAIN OR ??? PRO CABG, ARTERY-VEIN, TWO N/A 07/07/2017 @CABG, TWO VENOUS GRAFTS & ARTERIAL GRAFT (WRVU 7.93) performed by Yuan Retana MD at [facility] MAIN OR ??? PRO COLONOSCOPY, REMV LESN, SNARE 01/16/2014 COLONOSCOPY, POLYPECTOMY, REMOVAL LESION BY SNARE performed by Nohemi Jaimes MD at [facility] ENDOSCOPY ??? PRO ENDOSCOPY W/VIDEO-ASST VEIN HARVEST, CABG Right 07/07/2017 ENDOSCOPIC HARVEST VEIN(S) FOR CABG (WRVU 0.31) performed by Yuan Retana MD at [facility] MAIN OR ??? PRO THYROIDECTOMY 03/28/2013 THYROIDECTOMY, TOTAL OR COMPLETE performed by Manny Mcknight MD at [facility] MAIN OR Functional Status/Social Hx: Quit [...] left blue toes with CTA showing R TECHNICAL DESIGNER pseudoaneurysm (now thrombosed) and occluded ATs bilaterally. [...] 2.5x80 5. Completion RLE angiogram 6. L TECHNICAL DESIGNER angiogram 7. 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 - L TECHNICAL DESIGNER angriogram demonstrated: High femoral bifurcation over the proximal half of the femoral head. L TECHNICAL DESIGNER access in the distal L TECHNICAL DESIGNER. - Closure device: Mynx Technical Procedure: The [...] for a 45cm 5F Destination. V18 and [place] and QuickCross catheters were used to select [...] 5F. A stationed picture of the L TECHNICAL DESIGNER was performed as the patient was noted to have a very high bifurcation. Access appeared in the distal R TECHNICAL DESIGNER. Closure and sheath removal was performed with [...] PM EST 1440 report called to 5 sherrill nurse Tessa AGUSTIN documented in this encounter [...] with pt and pt's spouse. Discharge to [facility]. Goal: Individualization & Mutuality Outcome: Outcome (s) [...] sit/sit to supine -- Bed Mobility Goal, Harford Level independent -- Bed Mobility Goal, Date [...] days -- Transfer Training Goal, Activity Type wch-hx-jbrag/tccod-ay-wpc -- Transfer Train Goal, Harford Level conditional independence -- Transfer Train Goal, [...] call cabello within reach, Hourly rounding by RN/PAINTER BOTTOM. Bed alarm / Chair alarm. Patient-specific fall [...] Smith MD - 08/15/2017 6:28 PM EST [facility] [place] [place] Operative Note Patient Name: Gregory Hoang : [id number] MR#: [id number] Case Date: 08/09/2017 Surgeon: Surgeon(s) and Role: [...] 2.5x80 5. Completion RLE angiogram 6. L TECHNICAL DESIGNER angiogram 7. Mynx closure Precautions/Restrictions: fall, sternal [...] feet/ bed -> bathroom). Anticipated Discharge Disposition: nursing home facility, other (see comments) (or swing bed) Pager: [phone] BASSAM ELIAS, PT 08/14/2017 Inpatient Physical Therapy [...] to Achieve by discharge Gait Training Goal, Harford Level conditional independence;set up required Gait Training [...] these facilities over the weekend except for [facility]. CM spoke with [facility] CM Drea Sandhu, VAMSI who said that they do not anticipate any beds over the weekend. Reviewed with patient/ that they need to be aware that patient will need to take the first bed offered at the facilities that they make referrals to. Their choices are: 1- [facility] PHONE: [phone] FAX: [phone] 2- [facility] ([facility] [address] [place] [address] 3- [facility]) [address] [place] [address] I have discussed Medicare/Private Insurance [...] RS/CM on Wednesday to follow-up. Covering pager #[phone] for today. Plan of Care - Henrique [...] with additional findings of pseudoaneurysm on R TECHNICAL DESIGNER and bilateral anterior tibial artery occlusions. Was [...] an outpatient once discharged. Have patient call [phone] to set up an appointment. Follow-up: Dermatology will sign-off for now. Please do not hesitate to contact us if you have any questions orconcerns. Impression and Recommendations discussed with primary team on 08/13/2017. Karo Henderson MD Resident in Dermatology Section of Dermatology, Department of Surgery [facility] Pager [phone] Patient seen and evaluated with staff Tree Wrapper: Halima Cordero MD Section of Dermatology [facility] Level of Resident Supervision: Direct Supervision (The [...] 2.5x80 5. Completion RLE angiogram 6. L TECHNICAL DESIGNER angiogram 7. Mynx closure Active Non-Hospital Problems [...] home with home health ([facility] PT[facility]OT) Pager: [phone] YASIR TELLO OT 08/12/2017 Occupational Therapy Rehabilitation [...] 2.5x80 5. Completion RLE angiogram 6. L TECHNICAL DESIGNER angiogram 7. Mynx closure Past Medical History: [...] with 24/7 assistance and maximal services) Pager: [phone] NICHOLAS MORA, PT 08/12/2017 Physical Therapy Rehabilitation [...] sit/sit to supine -- Bed Mobility Goal, Harford Level independent -- Bed Mobility Goal, Outcome Achieved -- goal ongoing Goal: Gait Training Goal Stand Alone Therapy Goal Outcome: Ongoing (Interventions Implemented as Appropriate) 08/11/17 1310 08/12/17 1510 Gait Training Goal Gait Training Goal, Date Established 08/11/17 -- Gait Training Goal, Time to Achieve 5 - 7 days -- Gait Training Goal, Harford Level conditional independence -- Gait Training Goal, [...] days -- Transfer Training Goal, Activity Type vai-un-guwnw/sdvno-dw-dlw -- Transfer Train Goal, Harford Level conditional independence -- Transfer Training Goal, [...] Smith MD - 08/11/2017 2:52 PM EST [facility] [place] [place] Operative Note Patient Name: Gregory Hoang : [id number] MR#: [id number] Case Date: 08/11/2017 Surgeon: Surgeon(s) and Role: * Yonathan Smith MD - Primary * Mgidalia Mora MD - Fellow Preoperative diagnosis: open [...] 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 Completion RLE angiogram 6. L TECHNICAL DESIGNER angiogram 7. Mynx closure He is very [...] Anticipated Discharge Disposition: inpatient rehabilitation facility Pager: [phone] LAWRENCE GONZALEZ, PT 08/11/2017 Physical Therapy Rehabilitation [...] to sit/sit to supine Bed Mobility Goal, Harford Level independent Goal: Gait Training Goal Stand Alone Therapy Goal Outcome: Ongoing (Interventions Implemented as Appropriate) 08/11/17 1310 Gait Training Goal Gait Training Goal, Date Established 08/11/17 Gait Training Goal, Time to Achieve 5 - 7 days Gait Training Goal, Harford Level conditional independence Gait Training Goal, Assist [...] 7 days Transfer Training Goal, Activity Type nal-oq-jfmul/vnupq-tp-blv Transfer Train Goal, Harford Level conditional independence Plan of [facility] Annetta Sandoval RN - 08/11/2017 7:21 [...] call cabello within reach, Hourly rounding by RN/PAINTER BOTTOM. Bed alarm / Chair alarm. ? Patient-specific [...] 04/05/2013 Hospitalizations Within the Past 30 Days: [facility] [place] [place] 07/20/2017 Anticipated Length Of Stay (If known): Expected Length of Hospitalization: 5-7 days2-3 days Current Decision-Making Capacity: Alert and oriented x 4 Advance Care Planning: on file Kisha Hoang [facility] [phone] Current Coping/Education/Information Needs: pt and spouse state [...] Health/Prescription Coverage: Primary Insurance: MEDICARE Secondary Insurance: [employer] [facility] Prescription Coverage: See above Preferred Pharmacy: [facility] Other: N/A Primary Care Provider: Lovely Vicente MD [phone] Patient/Caregiver Goals of Treatment: Patient plans to return home when medically ready Potential Needs for Transition of Care: Rehab/SNF: N/A Home Health: [facility]. DME: pt has a cane and [...] of care planning. Kaitlin Saha RN Pager: [phone] Plan of Care - Melba Jaramillo RN [...] Overview Goal: Plan of Care Review 08/08/17 4204 Coping/Psychosocial Plan Of Care Reviewed With patient [...] call cabello within reach, Hourly rounding by RN/PAINTER BOTTOM. Bed alarm / Chair alarm. Patient-specific fall [...] at bedside and MD TEAM Carrying pager [phone] contacted (via Radio page) and notified of [...] Visit Cardiology Vitaliy Nobles MD [facility] ER CARDIOLOGY [place], [place] 0[address] (Wo rk) documented as of [...] section. TYPE AND SCREEN Routine 08/09/2017 1:10 ([facility] [place] [place]/CGP/SHANDA) AM EST BASIC METABOLIC PANEL Routine 08/09/2017 [...] Signature POC Glucose 160 65 - 199 [facility] mg/dL [facility] Comment: Supplemental ranges: <140 mg/dL before meals <180 mg/dL all other times of the day Specimen Anatomical Collection Method Collection Time Receive d Time (Source) Location / / Volume Laterality Blood specimen 08/16/2017 7:28 AM 018 7:28 (specimen) EST AM EST Yonathan Smith MD POINT OF CARE TEST ORDERABLE S Performing Organization Address City/State/ZIP [place] [address] (ABNORMAL) Differential, Automated (08/16/2017 5:08 AM EST) Patholo gist Method Time Signature Neutrophils % 73.9 % [facility] Neutr Abs (ANC) 5.37 1.70 - [facility] 6.10 [facility] x10(3)/[facility] LABORATORY Lymphocytes % 10.1 % [facility] Lymphocytes Abs 0.7 (L) 0.9 - 3.2 [facility] x10(3)/[facility] LABORATORY Monocytes % 10.1 % [facility] Monocyte Abs 0.7 0.3 - 0.9 [facility] x10(3)/[facility] LABORATORY Eosinophils % 5.1 % [facility] Eosinophils Abs 0.4 0.0 - 0.4 [facility] x10(3)/[facility] LABORATORY Basophils % 0.4 % [facility] Basophils Abs 0.0 0.0 - 0.1 [facility] x10(3)/[facility] LABORATORY Immature Gran % 0.40 % ST. [...] Melisa Gran Abs 0.03 0.00 - 0.04 x10(3)/[facility] LAB[facility] Specimen Anatomical Collection Method Collection Time Receive d Time (Source) Location / / Volume Laterality Blood specimen 08/16/2017 5:08 AM 018 5:20 (specimen) EST AM EST Resulting Agency Comment Spec In Lab Yonathan Smith MD HEMATOLOGY ORDERABLES Performing Organization Address City/State/ZIP [place] [address] (ABNORMAL) Hemogram (08/16/2017 5:08 AM EST) Analysis Performed At Patho logist Time Signature WBC 7.3 4.0 - 9.5 [facility] x10(3)/[facility] LABORATORY RBC 3.36 (L) 4.58 - [facility] 5.54 [facility] x10(6)/[facility] LABORATORY Hemoglobin 9.7 (L) 13.7 - [facility] 16.[facility] gm/dL [facility] Hematocrit 30.3 (L) 40.5 - [facility] 48.5 % [facility] MCV 90.2 82.9 - [facility] 93.1 [facility] LABORATORY MCH 28.9 27.5 - [facility] 32.1 pg [facility] MCHC 32.0 32.0 - [facility] 35.7 gm/dL [facility] Platelets 282 145 - 357 [facility] x10(3)/[facility] LABORATORY RDWSD 53.9 (H) 36.0 - [facility] 45.0 [facility] LABORATORY RDWCV 16.5 (H) 11.4 - [facility] 13.8 % [facility] MPV 9.0 7.6 - 12.9 [facility] LABORATORY nRBC % Auto 0.0 % [facility] nRBC Abs Auto 0.000 0.000 - [facility] 0.000 [facility] x10(3)/[facility] LABORATORY Specimen Anatomical Collection Method Collection Time Receive d Time (Source) Location / / Volume Laterality Blood specimen 08/16/2017 5:08 AM 018 5:20 (specimen) EST AM EST Resulting Agency Comment Spec In Lab Yonathan Smith MD HEMATOLOGY ORDERABLES Performing Organization Address City/State/ZIP [place] [address] (ABNORMAL) Basic Metabolic Panel (non-fasting) (08/16/2017 5:08 AM EST) P athologist Signature Glucose Lvl 141 65 - 199 [facility] mg/dL [facility] LABORATORY Comment: Diabetes: >=200 mg/dL plus symp toms BUN 29 (H) 10 - 20 mg/dL [facility] LABORATORY Creatinine 1.25 0.80 - [...] estions. Chloride 99 98 - 107 mmol/L [facility] LAB[facility]ORY CO2 28 22 - 31 mmol/L [facility] Anion Gap 13 5 - 15 mmol/L [facility] LABORATORY Calcium 8.7 8.5 - 10.5 mg/dL [facility] LABORATORY Estimated GFR 57 (L) >=60 [facility] LABOR[facility] Comment: The reported eGFR should be multiplied b y 1.2 for patients. The MDRD is not an appropriate measure o f renal function for patients with body mass extremes or in patients with acute kidney failure. http://Haolianluo/DHnkdep http://Haolianluo/DHMCnkf Specimen Anatomical Collection Method Collection Time Receive d Time (Source) Location / / Volume Laterality Blood specimen 08/16/2017 5:08 AM 018 5:20 (specimen) EST AM EST Resulting Agency Comment Spec In Lab Yonathan Smith MD CHEMISTRY ORDERABLES Performing Organization Address [facility] Phon e Number [address] (ABNORMAL) Prothrombin Time (08/16/2017 5:08 AM EST) P athologist Signature PT 25.2 (H) 11.8 - 14.0 [facility] LABORATORY INR 2.3 (H) 0.9 - 1.1 [facility] [...] Smith MD HEMATOLOGY ORDERABLES Performing Organization Address [facility] Code Phon e Number [address] POCT Glucose (08/16/2017 4:09 AM EST) athologist Signature POC Glucose 147 65 - 199 [facility] mg/dL [facility] LABORATORY Comment: Supplemental ranges: <140 mg/dL before meals <180 mg/dL all other times of the day Specimen Anatomical Collection Method Collection Time Receive d Time (Source) Location / / Volume Laterality Blood specimen 08/16/2017 4:09 AM 018 4:09 (specimen) EST AM EST Yonathan Smith MD POINT OF CARE TEST ORDERABLE S Performing Organization Address City/State/ZIP Code Phon e Number [address] POCT Glucose (08/15/2017 11:56 PM EST) athologist Signature POC Glucose 176 65 - 199 [facility] LABOR[facility]ORY Comment: Supplemental ranges: <140 mg/dL before meals <180 mg/dL all other times of the day Specimen Anatomical Collection Method Collection Time Receive d Time (Source) Location / / Volume Laterality Blood specimen 08/15/2017 11:56 8 (specimen) PM EST 11:56 PM EST Yonathan Smith MD POINT OF CARE TEST ORDERABLE S Performing Organization Address City/State/[place] [address] POCT Glucose (08/15/2017 8:05 PM EST) athologist Signature POC Glucose 136 65 - 199 [place] [facility] mg/dL [facility] LABORATORY Comment: Supplemental ranges: <140 mg/dL before meals <180 mg/dL all other times of the day Specimen Anatomical Collection Method Collection Time Receive d Time (Source) Location / / Volume Laterality Blood specimen 08/15/2017 8:05 PM 018 8:05 (specimen) EST PM EST Yonathan Smith MD POINT OF CARE TEST ORDERABLE S Performing Organization Address City/State/[place] [address] (ABNORMAL) POCT Glucose (08/15/2017 4:50 PM EST) athologist Signature POC Glucose 232 (H) 65 - 199 [place] [facility] mg/dL [facility] LABOR[facility]ORY Comment: Supplemental ranges: <140 mg/dL before meals <180 mg/dL all other times of the day Specimen Anatomical Collection Method Collection Time Receive d Time (Source) Location / / Volume Laterality Blood specimen 08/15/2017 4:50 PM 018 4:50 (specimen) EST PM EST Yonathan Smith MD POINT OF CARE TEST ORDERABLE S Performing Organization Address City/State/[place] [address] POCT Glucose (08/15/2017 12:04 PM EST) athologist Signature POC Glucose 135 65 - 199 [facility] LAB[facility]ORY Comment: Supplemental ranges: <140 mg/dL before meals <180 mg/dL all other times of the day Specimen Anatomical Collection Method Collection Time Receive d Time (Source) Location / / Volume Laterality Blood specimen 08/15/2017 12:04 8 (specimen) PM EST 12:04 PM EST Yonathan Smith MD POINT OF CARE TEST ORDERABLE S Performing Organization Address City/State/[place] [address] POCT Glucose (08/15/2017 7:36 AM EST) athologist Signature POC Glucose 124 65 - 199 [facility] mg/dL [facility] LABORATORY Comment: Supplemental ranges: <140 mg/dL before meals <180 mg/dL all other times of the day Specimen Anatomical Collection Method Collection Time Receive d Time (Source) Location / / Volume Laterality Blood specimen 08/15/2017 7:36 AM 018 7:36 (specimen) EST AM EST Yonathan Smith MD POINT OF CARE TEST ORDERABLE S Performing Organization Address City/State/[place] [address] (ABNORMAL) Differential, Automated (08/15/2017 6:22 AM EST) Patholo gist Method Time Signature Neutrophils % 76.1 % [facility] LABORATORY Neutr Abs (ANC) 6.62 (H) 1.70 - [facility] 6.10 [facility] x10(3)/[facility] L LABORATORY Lymphocytes % 9.3 % [facility] LABORATORY Lymphocytes Abs 0.8 (L) 0.9 - 3.2 [facility] x10(3)/[facility] LABORATORY Monocytes % 9.4 % [facility] LABORATORY Monocyte Abs 0.8 0.3 - 0.9 [facility] x10(3)/[facility] LABORATORY Eosinophils % 4.0 % [facility] LABORATORY Eosinophils Abs 0.4 0.0 - 0.4 [facility] x10(3)/[facility] LABORATORY Basophils % 0.6 % [facility] LABORATORY Basophils Abs 0.0 0.0 - 0.1 [place] 584790(3)/[facility] LABORATORY Immature Gran % 0.60 % ST. [...] Organization Address City/State/ZIP [place] [address] (ABNORMAL) Hemogram (08/15/2017 6:22 AM EST) Analysis Performed At [facility] logist Time Signature WBC 8.7 4.0 - 9.5 [facility] x10(3)/[facility] LABORATORY RBC 3.21 (L) 4.58 - [place] [facility] 5.54 [facility] x10(6)/[facility] LABORATORY Hemoglobin 9.1 (L) 13.7 - [facility] 16.[facility] gm/dL [facility] LABORATORY Hematocrit 29.0 (L) 40.5 - [facility] 48.5 % [facility] LABORATORY MCV 90.3 82.9 - [facility] 93.1 [facility] LABORATORY MCH 28.3 27.5 - [place] [facility] 32.1 pg [facility] LABORATORY MCHC 31.4 (L) 32.0 - [place] [facility] 35.7 gm/dL [facility] LABORATORY Platelets 254 145 - 357 [facility] x10(3)/[facility] LABORATORY RDWSD 53.9 (H) 36.0 - [facility] 45.0 [facility] LABORATORY RDWCV 16.3 (H) 11.4 - [facility] 13.8 % [facility] LABORATORY MPV 8.8 7.6 - 12.9 [facility] LABORATORY nRBC % Auto 0.0 % [facility] LABORATORY nRBC Abs Auto 0.000 0.000 - [facility] 0.000 [facility] x10(3)/[facility] LABORATORY Specimen Anatomical Collection Method Collection Time Receive d Time (Source) Location / / Volume Laterality Blood specimen 08/15/2017 6:22 AM 018 6:33 (specimen) EST AM EST Resulting Agency Comment Spec In Lab Yonathan Smith MD HEMATOLOGY ORDERABLES Performing Organization Address City/State/ZIP [place] [address] (ABNORMAL) Basic Metabolic Panel (non-fasting) (08/15/2017 6:22 AM EST) athologist Signature Glucose Lvl 118 65 - 199 [facility] mg/dL [facility] LABORATORY Comment: Diabetes: >=200 mg/dL plus symp toms BUN 27 (H) 10 - 20 mg/dL [facility] LABORATORY Creatinine 1.12 0.80 - 1.50 mg/dL [facility] LABORATORY Sodium 138 135 - 145 mmol/L [facility] estions. Chloride 98 98 - 107 mmol/L [facility] LABOR[facility]ORY CO2 29 22 - 31 mmol/L [facility] LABORATORY Anion Gap 11 5 - 15 mmol/L [facility] LABORATORY Calcium 8.8 8.5 - 10.5 mg/dL [facility] LABORATORY Estimated GFR >60 >=60 [facility] LABORATORY Comment: The reported eGFR should be multiplied b y 1.2 for patients. The MDRD is not an appropriate measure o f renal function for patients with body mass extremes or in patients with acute kidney failure. http://Haolianluo/DHnkdep http://Haolianluo/DHMCnkf Specimen Anatomical Collection Method Collection Time Receive d Time (Source) Location / / Volume Laterality Blood specimen 08/15/2017 6:22 AM 018 6:33 (specimen) EST AM EST Resulting Agency Comment Spec In Lab Yonathan Smith MD CHEMISTRY ORDERABLES Performing Organization Address City/State/ZIP [place] [address] (ABNORMAL) Prothrombin Time (08/15/2017 6:22 AM EST) athologist Signature PT 21.9 (H) 11.8 - 14.0 [facility] LABORATORY INR 1.9 (H) 0.9 - 1.1 [facility] [...] Smith MD HEMATOLOGY ORDERABLES Performing Organization Address City/[facility]/ZIP Code Phon e Number [address] POCT Glucose (08/15/2017 4:33 AM EST) athologist Signature POC Glucose 164 65 - 199 [place] [facility] mg/dL [facility] LABORATORY Comment: Supplemental ranges: <140 mg/dL before meals <180 mg/dL all other times of the day Specimen Anatomical Collection Method Collection Time Receive d Time (Source) Location / / Volume Laterality Blood specimen 08/15/2017 4:33 AM 018 4:33 (specimen) EST AM EST Yonathan Smith MD POINT OF CARE TEST ORDERABLE S Performing Organization Address City/[facility]/ZIP Code Phon e Number [address] POCT Glucose (08/15/2017 12:12 AM EST) athologist Signature POC Glucose 89 65 - 199 [place] [facility] mg/dL [facility] LABORATORY Comment: Supplemental ranges: <140 mg/dL before meals <180 mg/dL all other times of the day Specimen Anatomical Collection Method Collection Time Receive d Time (Source) Location / / Volume Laterality Blood specimen 08/15/2017 12:12 8 (specimen) AM EST 12:12 AM EST Yonathan Smith MD POINT OF CARE TEST ORDERABLE S Performing Organization Address City/[facility]/ZIP Code Phon e Number [address] (ABNORMAL) POCT Glucose (08/14/2017 8:07 PM EST) athologist Signature POC Glucose 204 (H) 65 - 199 [place] [facility] mg/dL [facility] LABORATORY Comment: Supplemental ranges: <140 mg/dL before meals <180 mg/dL all other times of the day Specimen Anatomical Collection Method Collection Time Receive d Time (Source) Location / / Volume Laterality Blood specimen 08/14/2017 8:07 PM 018 8:07 (specimen) EST PM EST Yonathan Smith MD POINT OF CARE TEST ORDERABLE S Performing Organization Address City/State/[place] [address] POCT Glucose (08/14/2017 5:11 PM EST) athologist Signature POC Glucose 174 65 - 199 [facility] mg/dL [facility] LABORATORY Comment: Supplemental ranges: <140 mg/dL before meals <180 mg/dL all other times of the day Specimen Anatomical Collection Method Collection Time Receive d Time (Source) Location / / Volume Laterality Blood specimen 08/14/2017 5:11 PM 018 5:11 (specimen) EST PM EST Yonathan Smith MD POINT OF CARE TEST ORDERABLE S Performing Organization Address City/State/[place] [address] POCT Glucose (08/14/2017 12:10 PM EST) athologist Signature POC Glucose 141 65 - 199 [facility] mg/dL [facility] LABORATORY Comment: Supplemental ranges: <140 mg/dL before meals <180 mg/dL all other times of the day Specimen Anatomical Collection Method Collection Time Receive d Time (Source) Location / / Volume Laterality Blood specimen 08/14/2017 12:10 8 (specimen) PM EST 12:10 PM EST Yonathan Smith MD POINT OF CARE TEST ORDERABLE S Performing Organization Address City/State/[place] [address] POCT Glucose (08/14/2017 8:07 AM EST) athologist Signature POC Glucose 158 65 - 199 [place] [facility] mg/dL [facility] LABORATORY Comment: Supplemental ranges: <140 mg/dL before meals <180 mg/dL all other times of the day Specimen Anatomical Collection Method Collection Time Receive d Time (Source) Location / / Volume Laterality Blood specimen 08/14/2017 8:07 AM 018 8:07 (specimen) EST AM EST Yonathan Smith MD POINT OF CARE TEST ORDERABLE S Performing Organization Address City/State/ZIP [place] [address] (ABNORMAL) Differential, Automated (08/14/2017 4:52 AM EST) [facility] Method Time Signature Neutrophils % 78.6 % [facility] LABORATORY Neutr Abs (ANC) 7.70 (H) 1.70 - [facility] 6.10 [facility] x10(3)/[facility] L LABORATORY Lymphocytes % 7.8 % [facility] LABORATORY Lymphocytes Abs 0.8 (L) 0.9 - 3.2 [facility] x10(3)/[facility] LABORATORY Monocytes % 8.8 % [facility] LABORATORY Monocyte Abs 0.9 0.3 - 0.9 [facility] x10(3)/[facility] LABORATORY Eosinophils % 4.0 % [facility] LABORATORY Eosinophils Abs 0.4 0.0 - 0.4 [facility] x10(3)/[facility] LABORATORY Basophils % 0.5 % [facility] LABORATORY Basophils Abs 0.0 0.0 - 0.1 [facility] x10(3)/[facility] LABORATORY Immature Gran % 0.30 % [...] Melisa Gran Abs 0.03 0.00 - 0.04 x10(3)/[facility] LABORATORY Specimen Anatomical Collection Method Collection Time Receive d Time (Source) Location / / Volume Laterality Blood specimen 08/14/2017 4:52 AM 018 5:08 (specimen) EST AM EST Resulting Agency Comment Spec In Lab Yonathan Smith MD HEMATOLOGY ORDERABLES Performing Organization Address City/State/ZIP [place] [address] (ABNORMAL) Hemogram (08/14/2017 4:52 AM EST) Analysis Performed At Patho logist Time Signature WBC 9.8 (H) 4.0 - 9.5 [facility] x[facility](3[facility] LABORATORY RBC 3.32 (L) 4.58 - [place] [facility] 5.54 [facility] x10(6)/[facility] LABORATORY Hemoglobin 9.5 (L) 13.7 - [facility] 16[facility] gm/dL [facility] LABORATORY Hematocrit 30.3 (L) 40.5 - [facility] 48.5 % [facility] LABORATORY MCV 91.3 82.9 - [facility] 93.1 [facility] LABORATORY MCH 28.6 27.5 - [facility] 32.1 pg [facility] LABORATORY MCHC 31.4 (L) 32.0 - [facility] 35.7 gm/dL [facility] LABORATORY Platelets 263 145 - 357 [facility] x10(3)/[facility] LABORATORY RDWSD 54.8 (H) 36.0 - [facility] 45.0 [facility] LABORATORY RDWCV 16.5 (H) 11.4 - [facility] 13.8 % [facility] LABORATORY MPV 9.1 7.6 - 12.9 [facility] nRBC % Auto 0.0 % [facility] LABORATORY nRBC Abs Auto 0.000 0.000 - [facility] SU 0.000 [facility] x10(3)/[facility] LABORATORY Specimen Anatomical Collection Method Collection Time Receive d Time (Source) Location / / Volume Laterality Blood specimen 08/14/2017 4:52 AM 018 5:08 (specimen) EST AM EST Resulting Agency Comment Spec In Lab Yonathan Smith MD HEMATOLOGY ORDERABLES Performing Organization Address City/State/ZIP [place] [address] (ABNORMAL) Prothrombin Time (08/14/2017 4:52 AM EST) P athologist Signature PT 18.8 (H) 11.8 - [...] Organization Address City/State/ZIP [place] [address] (ABNORMAL) Basic Metabolic Panel (non-fasting) (08/14/2017 4:52 AM EST) P athologist Signature Glucose Lvl 135 65 - 199 [facility] mg/dL [facility] LABORATORY Comment: Diabetes: >=200 mg/dL plus symp toms BUN 25 (H) 10 - 20 mg/dL [facility] LABORATORY Creatinine 1.36 0.80 - [...] [facility] LABORATORY Estimated GFR 52 (L) >=60 [facility] LABORATORY Comment: The reported eGFR should be multiplied b y 1.2 for patients. The MDRD is not an appropriate measure o f renal function for patients with body mass extremes or in patients with acute kidney failure. http://Haolianluo/DHnkdep http://Haolianluo/DHMCnkf Specimen Anatomical Collection Method Collection Time Receive d Time (Source) Location / / Volume Laterality Blood specimen 08/14/2017 4:52 AM 018 5:08 (specimen) EST AM EST Resulting Agency Comment Spec In Lab Yonathan Smith MD CHEMISTRY ORDERABLES Performing Organization Address City/[facility] Phon e Number [address] POCT Glucose (08/14/2017 3:56 AM EST) athologist Signature POC Glucose 135 65 - 199 [facility]/dL [facility] LABORATORY Comment: Supplemental ranges: <140 mg/dL before meals <180 mg/dL all other times of the day Specimen Anatomical Collection Method Collection Time Receive d Time (Source) Location / / Volume Laterality Blood specimen 08/14/2017 3:56 AM 018 3:56 (specimen) EST AM EST Yonathan Smith MD POINT OF CARE TEST ORDERABLE S Performing Organization Address City/[facility]/ZIP Code Phon e Number [address] POCT Glucose (08/13/2017 11:13 PM EST) P athologist Signature POC Glucose 118 65 - 199 [facility]/dL [facility] LABORATORY Comment: Supplemental ranges: <140 mg/dL before meals <180 mg/dL all other times of the day Specimen Anatomical Collection Method Collection Time Receive d Time (Source) Location / / Volume Laterality Blood specimen 08/13/2017 11:13 8 (specimen) PM EST 11:13 PM EST Yonathan Smith MD POINT OF CARE TEST ORDERABLE S Performing Organization Address City/State/[facility] [place] [address] (ABNORMAL) POCT Glucose (08/13/2017 8:08 PM EST) athologist Signature POC Glucose 204 (H) 65 - 199 [facility] mg/dL [facility] LABORATORY Comment: Supplemental ranges: <140 mg/dL before meals <180 mg/dL all other times of the day Specimen Anatomical Collection Method Collection Time Receive d Time (Source) Location / / Volume Laterality Blood specimen 08/13/2017 8:08 PM 018 8:08 (specimen) EST PM EST Yonathan Smith MD POINT OF CARE TEST ORDERABLE S Performing Organization Address City/State/ZIP Code Phon e Number [address] POCT Glucose (08/13/2017 4:02 PM EST) athologist Signature POC Glucose 145 65 - 199 [place] [facility] mg/dL [facility] LABORATORY Comment: Supplemental ranges: <140 mg/dL before meals <180 mg/dL all other times of the day Specimen Anatomical Collection Method Collection Time Receive d Time (Source) Location / / Volume Laterality Blood specimen 08/13/2017 4:02 PM 018 4:02 (specimen) EST PM EST Yonathan Smith MD POINT OF CARE TEST ORDERABLE S Performing Organization Address City/State/[place] [address] POCT Glucose (08/13/2017 11:31 AM EST) athologist Signature POC Glucose 179 65 - 199 [place] [facility] mg/dL [facility] LABORATORY Comment: Supplemental ranges: <140 mg/dL before meals <180 mg/dL all other times of the day Specimen Anatomical Collection Method Collection Time Receive d Time (Source) Location / / Volume Laterality Blood specimen 08/13/2017 11:31 8 (specimen) AM EST 11:31 AM EST Yonathan Smith MD POINT OF CARE TEST ORDERABLE S Performing Organization Address City/State/ZIP Code Phon e Number [address] (ABNORMAL) POCT Glucose (08/13/2017 10:16 AM EST) P athologist Signature POC Glucose 211 (H) 65 - 199 [facility]/dL [facility] LABORATORY Comment: Supplemental ranges: <140 mg/dL before meals <180 mg/dL all other times of the day Specimen Anatomical Collection Method Collection Time Receive d Time (Source) Location / / Volume Laterality Blood specimen 08/13/2017 10:16 8 (specimen) AM EST 10:16 AM EST Yonathan Smith MD POINT OF CARE TEST ORDERABLE S Performing Organization Address City/State/[place] [address] JULIAN, legs, multiple levels (08/13/2017 7:42 AM EST) Component Value Ref Test Analysis Performed At Patholo gist Range Method Time Signature VB Text Department: Vascular Surgery Lab VASCUBASE Report Patient: [id number] (GREGORY HOANG) CPT: 76539 ICD10: I99.8 Referring Physician: YONATHAN SMITH ?? Indications: s/p R 1,2,3 toe amps with red left foot, need n ew baseline Diabetes mellitus: yes ICD10 Diagnosis Code: I99.8 Findings: Right ?Pressure (mm Hg) ?? JULIAN ??Waveform ?TBI ?? Brachial Artery ?138 ? Dorsalis Pedis (Ankle) Arter y ?132 ? 0.94 ??Marathon- Biphasic ? Posterior Tibial (Ankle) Art anila ??154 ? 1.10 ??Marathon-Biphasic ? Fourth Toe ? 67 ? 0.48 [...] Smith MD VASCULAR ORDERABLES Performing Organization Address City/[facility]/ZIP Code Phon e Number VASCUBASE POCT Glucose (08/13/2017 7:33 AM EST) P athologist Signature POC Glucose 156 65 - 199 [facility] mg/dL [facility] LABORATORY Comment: Supplemental ranges: <140 mg/dL before meals <180 mg/dL all other times of the day Specimen Anatomical Collection Method Collection Time Receive d Time (Source) Location / / Volume Laterality Blood specimen 08/13/2017 7:33 AM 018 7:33 (specimen) EST AM EST Yonathan Smith MD POINT OF CARE TEST ORDERABLE S Performing Organization Address City/[facility]/ZIP [facility] [place] [address] (ABNORMAL) Differential, Automated (08/13/2017 5:33 AM EST) Patholo gist Method Time Signature Neutrophils % 77.8 % [facility] LABORATORY Neutr Abs (ANC) 7.83 (H) 1.70 - [facility] 6.10 [facility] x10(3)/[facility] L LABORATORY Lymphocytes % 8.4 % [facility] LABORATORY Lymphocytes Abs 0.8 (L) 0.9 - 3.2 [facility] x10(3)/[facility] LABORATORY Monocytes % 8.3 % [facility] LABORATORY Monocyte Abs 0.8 0.3 - 0.9 [facility] x10(3)/[facility] LABORATORY Eosinophils % 4.6 % [facility] LABORATORY Eosinophils Abs 0.5 (H) 0.0 - 0.4 [facility] x10(3)/[facility] LABORATORY Basophils % 0.5 % [facility] LABORATORY Basophils Abs 0.0 0.0 - 0.1 [facility] x10(3)/[facility] LABORATORY Immature Gran % 0.40 % [...] Melisa Gran Abs 0.04 0.00 - 0.04 x10(3)/[facility] LABORATORY Specimen Anatomical Collection Method Collection Time Receive d Time (Source) Location / / Volume Laterality Blood specimen 08/13/2017 5:33 AM 018 6:04 (specimen) EST AM EST Resulting Agency Comment Spec In Lab Yonathan Smith MD HEMATOLOGY ORDERABLES Performing Organization Address City/State/[place] [address] (ABNORMAL) Hemogram (08/13/2017 5:33 AM EST) Analysis Performed At Patho logist Time Signature WBC 10.1 (H) 4.0 - 9.5 [facility] x10(3)/[facility] LABORATORY RBC 3.21 (L) 4.58 - [facility] 5.54 [facility] x10(6)/[facility] LABORATORY Hemoglobin 9.2 (L) 13.7 - [facility] 16.5 gm/dL [facility] LABORATORY Hematocrit 29.6 (L) 40.5 - [facility] 48.5 % [facility] LABORATORY MCV 92.2 82.9 - [facility] 93.1 fL [facility] LABORATORY MCH 28.7 27.5 - [facility]1 pg [facility] LABORATORY MCHC 31.1 (L) 32.0 - [facility] 35.7 gm/dL [facility] LABORATORY Platelets 263 145 - 357 [facility] x10(3)/[facility] LABORATORY RDWSD 54.8 (H) 36.0 - [facility] 45.0 [facility] LABORATORY RDWCV 16.4 (H) 11.4 - [facility] 13.8 % [facility] LABORATORY MPV 9.2 7.6 - 12.9 [facility] LABORATORY nRBC % Auto 0.0 % [facility] LABORATORY nRBC Abs Auto 0.000 0.000 - [facility] 0.000 [facility] x10(3)/[facility] LABORATORY Specimen Anatomical Collection Method Collection Time Receive d Time (Source) Location / / Volume Laterality Blood specimen 08/13/2017 5:33 AM 018 6:04 (specimen) EST AM EST Resulting Agency Comment Spec In Lab Yonathan Smith MD HEMATOLOGY ORDERABLES Performing Organization Address City/State/[facility] [place] [address] (ABNORMAL) Prothrombin Time (08/13/2017 5:33 AM EST) P athologist Signature PT 17.3 (H) 11.8 - 14.0 [facility] LABORATORY INR 1.4 (H) 0.9 - 1.1 [facility] [...] Organization Address City/State/[place] [address] (ABNORMAL) Basic Metabolic Panel (non-fasting) (08/13/2017 5:33 AM EST) P athologist Signature Glucose Lvl 126 65 - 199 [facility] mg/dL [facility] LABORATORY Comment: Diabetes: >=200 mg/dL plus symp toms BUN 18 10 - 20 mg/dL [facility] LABORATORY Creatinine 1.16 0.80 - [...] 107 mmol/L [facility] LABORATORY CO2 29 22 - 31 mmol/L [facility] LABORATORY Anion Gap 12 5 - 15 mmol/L [facility] LABORATORY Calcium 7.9 (L) 8.5 - 10.5 mg/dL [facility] LABORATORY Estimated GFR >60 >=60 [facility] LABORATORY Comment: The reported eGFR should be multiplied b y 1.2 for patients. The MDRD is not an appropriate measure o f renal function for patients with body mass extremes or in patients with acute kidney failure. http://20lines.Mob Science/DHnkdep http://20lines.Mob Science/DHMCnkf Specimen Anatomical Collection Method Collection Time Receive d Time (Source) Location / / Volume Laterality Blood specimen 08/13/2017 5:33 AM 018 6:04 (specimen) EST AM EST Resulting Agency Comment Spec In Lab Yonathan Smith MD CHEMISTRY ORDERABLES Performing Organization Address City/[facility]/ZIP Code Phon e Number [place] [id number] POCT Glucose (08/13/2017 4:29 AM EST) athologist Signature POC Glucose 111 65 - 199 [place] mg/dL [facility] LABORATORY Comment: Supplemental ranges: <140 mg/dL before meals <180 mg/dL all other times of the day Specimen Anatomical Collection Method Collection Time Receive d Time (Source) Location / / Volume Laterality Blood specimen 08/13/2017 4:29 AM 018 4:29 (specimen) EST AM EST Yonathan Smith MD POINT OF CARE TEST ORDERABLE S Performing Organization Address City/State/ZIP Code Phon e Number [address] POCT Glucose (08/12/2017 11:28 PM EST) athologist Signature POC Glucose 164 65 - 199 [facility]dL [facility] LABORATORY Comment: Supplemental ranges: <140 mg/dL before meals <180 mg/dL all other times of the day Specimen Anatomical Collection Method Collection Time Receive d Time (Source) Location / / Volume Laterality Blood specimen 08/12/2017 11:28 8 (specimen) PM EST 11:28 PM EST Yonathan Smith MD POINT OF CARE TEST ORDERABLE S Performing Organization Address City/State/[place] [address] (ABNORMAL) POCT Glucose (08/12/2017 7:40 PM EST) athologist Signature POC Glucose 209 (H) 65 - 199 [facility] SU mg/dL [facility] LABORATORY Comment: Supplemental ranges: <140 mg/dL before meals <180 mg/dL all other times of the day Specimen Anatomical Collection Method Collection Time Receive d Time (Source) Location / / Volume Laterality Blood specimen 08/12/2017 7:40 PM 018 7:40 (specimen) EST PM EST Yonathan Smith MD POINT OF CARE TEST ORDERABLE S Performing Organization Address City/State/[place] [address] POCT Glucose (08/12/2017 4:24 PM EST) athologist Signature POC Glucose 161 65 - 199 [place] mg/dL [facility] LABORATORY Comment: Supplemental ranges: <140 mg/dL before meals <180 mg/dL all other times of the day Specimen Anatomical Collection Method Collection Time Receive d Time (Source) Location / / Volume Laterality Blood specimen 08/12/2017 4:24 PM 018 4:24 (specimen) EST PM EST Yonathan Smith MD POINT OF CARE TEST ORDERABLE S Performing Organization Address City/State/[place] [address] POCT Glucose (08/12/2017 12:00 PM EST) athologist Signature POC Glucose 167 65 - 199 [facility] SU mg/dL [facility] LABORATORY Comment: Supplemental ranges: <140 mg/dL before meals <180 mg/dL all other times of the day Specimen Anatomical Collection Method Collection Time Receive d Time (Source) Location / / Volume Laterality Blood specimen 08/12/2017 12:00 8 (specimen) PM EST 12:00 PM EST Yonathan Smith MD POINT OF CARE TEST ORDERABLE S Performing Organization Address City/State/[place] [address] POCT Glucose (08/12/2017 7:25 AM EST) athologist Signature POC Glucose 152 65 - 199 [facility] mg/dL [facility] LABORATORY Comment: Supplemental ranges: <140 mg/dL before meals <180 mg/dL all other times of the day Specimen Anatomical Collection Method Collection Time Receive d Time (Source) Location / / Volume Laterality Blood specimen 08/12/2017 7:25 AM 018 7:25 (specimen) EST AM EST Yonathan Smith MD POINT OF CARE TEST ORDERABLE S Performing Organization Address City/State/[place] [address] (ABNORMAL) Differential, Automated (08/12/2017 6:29 AM EST) Patholo gist Method Time Signature Neutrophils % 78.7 % [facility] LABORATORY Neutr Abs (ANC) 7.94 (H) 1.70 - [facility] 6.10 [facility] x10(3)/[facility] LABORATORY Lymphocytes % 8.8 % [facility] LABORATORY Lymphocytes Abs 0.9 0.9 - 3.2 [facility] x10(3)/[facility] LABORATORY Monocytes % 7.8 % [facility] LABORATORY Monocyte Abs 0.8 0.3 - 0.9 [facility] x10(3)/[facility] LABORATORY Eosinophils % 3.9 % [facility] LABORATORY Eosinophils Abs 0.4 0.0 - 0.4 [facility] x10(3)/[facility] LABORATORY Basophils % 0.3 % [facility] LABORATORY Basophils Abs 0.0 0.0 - 0.1 [facility] x10(3)/[facility] LABORATORY Immature Gran % 0.50 % [...] Organization Address City/State/ZIP [place] [address] (ABNORMAL) Hemogram (08/12/2017 6:29 AM EST) Analysis Performed At [facility] logist Time Signature WBC 10.1 (H) 4.0 - 9.5 [facility] x10(3)/[facility] LABORATORY RBC 3.02 (L) 4.58 - [place] [facility] 5.54 [facility] x10(6)/[facility] LABORATORY Hemoglobin 8.7 (L) 13.7 - [facility] SU 16.5 gm/dL [facility] LABORATORY Hematocrit 28.1 (L) 40.5 - [place] 48.5 % [facility] LABORATORY MCV 93.0 82.9 - [facility] 93.1 [facility] LABORATORY MCH 28.8 27.5 - [place] [facility] 32.1 pg [facility] LABORATORY MCHC 31.0 (L) 32.0 - [facility] SU 35.7 gm/dL [facility] LABORATORY Platelets 223 145 - 357 [facility] x10(3)/[facility] LABORATORY RDWSD 56.1 (H) 36.0 - [facility] SU 45.0 [facility] LABORATORY RDWCV 16.4 (H) 11.4 - [facility] 13.8 % [facility] LABORATORY MPV 9.0 7.6 - 12.9 [facility] LABORATORY nRBC % Auto 0.0 % [facility] LABORATORY nRBC Abs Auto 0.000 0.000 - [facility] 0.000 [facility] x10(3)/[facility] LABORATORY Specimen Anatomical Collection Method Collection Time Receive d Time (Source) Location / / Volume Laterality Blood specimen 08/12/2017 6:29 AM 018 6:38 (specimen) EST AM EST Resulting Agency Comment Spec In Lab Yonathan Smith MD HEMATOLOGY ORDERABLES Performing Organization Address City/State/ZIP [place] [address] (ABNORMAL) Prothrombin Time (08/12/2017 6:29 AM EST) P athologist Signature PT 16.1 (H) 11.8 - 14.0 [facility] LABORATORY INR 1.3 (H) 0.9 - 1.1 [facility] [...] Organization Address City/State/ZIP [place] [address] (ABNORMAL) Basic Metabolic Panel (non-fasting) (08/12/2017 6:29 AM EST) athologist Signature Glucose Lvl 151 65 - 199 [facility] mg/dL [facility] LABORATORY Comment: Diabetes: >=200 mg/dL plus symp toms BUN 18 10 - 20 mg/dL [facility] LABORATORY Creatinine 1.11 0.80 - 1.50 mg/dL [facility] LABORATORY Sodium 138 135 - 145 mmol/L [facility] estions. Chloride 99 98 - 107 mmol/L [facility] LABORATORY CO2 28 22 - 31 mmol/L [facility] LABORATORY Anion Gap 11 5 - 15 mmol/L [facility] LABORATORY Calcium 7.9 (L) 8.5 - 10.5 mg/dL [facility] LABORATORY Estimated GFR >60 >=60 [facility] LABORATORY Comment: The reported eGFR should be multiplied b y 1.2 for patients. The MDRD is not an appropriate measure o f renal function for patients with body mass extremes or in patients with acute kidney failure. http://20lines.Mob Science/DHnkdep http://20lines.Mob Science/[facility], OKLAHOMAnkf Specimen Anatomical Collection Method Collection Time Receive d Time (Source) Location / / Volume Laterality Blood specimen 08/12/2017 6:29 AM 018 6:38 (specimen) EST AM EST Resulting Agency Comment Spec In Lab Yonathan Smith MD CHEMISTRY ORDERABLES Performing Organization Address City/[facility]/[place] [address] POCT Glucose (08/12/2017 4:08 AM EST) athologist Signature POC Glucose 181 65 - 199 [facility] SU mg/dL [facility] LABORATORY Comment: Supplemental ranges: <140 mg/dL before meals <180 mg/dL all other times of the day Specimen Anatomical Collection Method Collection Time Receive d Time (Source) Location / / Volume Laterality Blood specimen 08/12/2017 4:08 AM 018 4:08 (specimen) EST AM EST Yonathan Smith MD POINT OF CARE TEST ORDERABLE S Performing Organization Address City/[facility]/[place] [address] (ABNORMAL) POCT Glucose (08/12/2017 12:17 AM EST) athologist Signature POC Glucose 221 (H) 65 - 199 [facility] LABORATORY Comment: Supplemental ranges: <140 mg/dL before meals <180 mg/dL all other times of the day Specimen Anatomical Collection Method Collection Time Receive d Time (Source) Location / / Volume Laterality Blood specimen 08/12/2017 12:17 8 (specimen) AM EST 12:17 AM EST Yonathan Smith MD POINT OF CARE TEST ORDERABLE S Performing Organization Address City/State/ZIP Code Phon e Number [address] (ABNORMAL) POCT Glucose (08/11/2017 8:52 PM EST) athologist Signature POC Glucose 221 (H) 65 - 199 [facility] LABORATORY Comment: Supplemental ranges: <140 mg/dL before meals <180 mg/dL all other times of the day Specimen Anatomical Collection Method Collection Time Receive d Time (Source) Location / / Volume Laterality Blood specimen 08/11/2017 8:52 PM 018 8:52 (specimen) EST PM EST Yonathan Smith MD POINT OF CARE TEST ORDERABLE S Performing Organization Address City/State/[place] [address] POCT Glucose (08/11/2017 5:59 PM EST) athologist Signature POC Glucose 169 65 - 199 [facility] mg/dL [facility] LABORATORY Comment: Supplemental ranges: <140 mg/dL before meals <180 mg/dL all other times of the day Specimen Anatomical Collection Method Collection Time Receive d Time (Source) Location / / Volume Laterality Blood specimen 08/11/2017 5:59 PM 018 5:59 (specimen) EST PM EST Yonathan Smith MD POINT OF CARE TEST ORDERABLE S Performing Organization Address City/State/[place] [address] (ABNORMAL) POCT Glucose (08/11/2017 4:08 PM EST) athologist Signature POC Glucose 240 (H) 65 - 199 [facility] mg/dL [facility] LABORATORY Comment: Supplemental ranges: <140 mg/dL before meals <180 mg/dL all other times of the day Specimen Anatomical Collection Method Collection Time Receive d Time (Source) Location / / Volume Laterality Blood specimen 08/11/2017 4:08 PM 018 4:08 (specimen) EST PM EST Yonathan Smith MD POINT OF CARE TEST ORDERABLE S Performing Organization Address City/State/ZIP Code Phon e Number [address] POCT Glucose (08/11/2017 12:04 PM EST) athologist Signature POC Glucose 182 65 - 199 [place] mg/dL [facility] LABORATORY Comment: Supplemental ranges: <140 mg/dL before meals <180 mg/dL all other times of the day Specimen Anatomical Collection Method Collection Time Receive d Time (Source) Location / / Volume Laterality Blood specimen 08/11/2017 12:04 8 (specimen) PM EST 12:04 PM EST Yonathan Smith MD POINT OF CARE TEST ORDERABLE S Performing Organization Address City/State/ZIP Code Phon e Number [address] POCT Glucose (08/11/2017 7:31 AM EST) P athologist Signature POC Glucose 156 65 - 199 [facility] LABORATORY Comment: Supplemental ranges: <140 mg/dL before meals <180 mg/dL all other times of the day Specimen Anatomical Collection Method Collection Time Receive d Time (Source) Location / / Volume Laterality Blood specimen 08/11/2017 7:31 AM 018 7:31 (specimen) EST AM EST Yonathan Smith MD POINT OF CARE TEST ORDERABLE S Performing Organization Address City/State/[place] [address] (ABNORMAL) Differential, Automated (08/11/2017 6:16 AM EST) Patholo gist Method Time Signature Neutrophils % 83.7 % [facility] LABORATORY Neutr Abs (ANC) 10.76 (H) 1.70 - [facility] 6.10 [facility] x10(3)/[facility] L LABORATORY Lymphocytes % 6.0 % [facility] LABORATORY Lymphocytes Abs 0.8 (L) 0.9 - 3.2 [facility] x10(3)/[facility] LABORATORY Monocytes % 7.5 % [facility] LABORATORY Monocyte Abs 1.0 (H) 0.3 - 0.9 [facility] x10(3)/[facility] LABORATORY Eosinophils % 2.0 % [facility] LABORATORY Eosinophils Abs 0.3 0.0 - 0.4 [facility] x10(3)/[facility] LABORATORY Basophils % 0.3 % [facility] LABORATORY Basophils Abs 0.0 0.0 - 0.1 [facility] x10(3)/[facility] LABORATORY Immature Gran % 0.50 % [...] Organization Address City/State/[place] [address] (ABNORMAL) Hemogram (08/11/2017 6:16 AM EST) Analysis Performed At Patho logist Time Signature WBC 12.9 (H) 4.0 - 9.5 [facility] x10(3)/[facility] LABORATORY RBC 3.28 (L) 4.58 - [facility] 5.54 [facility] x10(6)/[facility] LABORATORY Hemoglobin 9.5 (L) 13.7 - [facility] 16[facility] gm/dL [facility] LABORATORY Hematocrit 29.8 (L) 40.5 - [facility] SU 48.5 % [facility] LABORATORY MCV 90.9 82.9 - [facility] SU 93.1 [facility] LABORATORY MCH 29.0 27.5 - [place] 32.1 pg [facility] LABORATORY MCHC 31.9 (L) 32.0 - [facility] 35.7 gm/dL [facility] LABORATORY Platelets 236 145 - 357 [facility] x10(3)/[facility] LABORATORY RDWSD 53.5 (H) 36.0 - [place] [facility] 45.0 [facility] LABORATORY RDWCV 16.3 (H) 11.4 - [facility] SU 13.8 % [facility] LABORATORY MPV 8.8 7.6 - 12.9 [facility] LABORATORY nRBC % Auto 0.0 % [facility] LABORATORY nRBC Abs Auto 0.000 0.000 - [facility] 0.000 [facility] x10(3)/[facility] LABORATORY Specimen Anatomical Collection Method Collection Time Receive d Time (Source) Location / / Volume Laterality Blood specimen 08/11/2017 6:16 AM 018 6:24 (specimen) EST AM EST Resulting Agency Comment Spec In Lab Yonathan Smith MD HEMATOLOGY ORDERABLES Performing Organization Address City/State/ZIP [place] [address] (ABNORMAL) Prothrombin Time (08/11/2017 6:16 AM EST) athologist Signature PT 15.5 (H) 11.8 - 14.0 [facility] LABORATORY INR 1.3 (H) 0.9 - 1.1 [facility] [...] Organization Address City/State/ZIP [place] [address] Basic Metabolic Panel (non-fasting) (08/11/2017 6:16 AM EST) P athologist Signature Glucose Lvl 139 65 - 199 [facility] mg/dL [facility] LABORATORY Comment: Diabetes: >=200 mg/dL plus symp toms BUN 12 10 - 20 mg/dL [facility] LABORATORY Creatinine 0.91 0.80 - 1.50 mg/dL [facility] LABORATORY Sodium 138 135 - 145 mmol/L [facility] estions. Chloride 98 98 - 107 mmol/L [facility] LABORATORY CO2 27 22 - 31 mmol/L [facility] LABORATORY Anion Gap 13 5 - 15 mmol/L [facility] LABORATORY Calcium 8.5 8.5 - 10.5 mg/dL [facility] LABORATORY Estimated GFR >60 >=60 [facility] LABORATORY Comment: The reported eGFR should be multiplied b y 1.2 for patients. The MDRD is not an appropriate measure o f renal function for patients with body mass extremes or in patients with acute kidney failure. http://Haolianluo/DHnkdep http://Haolianluo/DHMCnkf Specimen Anatomical Collection Method Collection Time Receive d Time (Source) Location / / Volume Laterality Blood specimen 08/11/2017 6:16 AM 018 6:24 (specimen) EST AM EST Resulting Agency Comment Spec In Lab Yonathan Smith MD CHEMISTRY ORDERABLES Performing Organization Address City/State/ZIP [place] [address] POCT Glucose (08/11/2017 4:07 AM EST) P athologist Signature POC Glucose 162 65 - 199 [facility] mg/dL [facility] LABORATORY Comment: Supplemental ranges: <140 mg/dL before meals <180 mg/dL all other times of the day Specimen Anatomical Collection Method Collection Time Receive d Time (Source) Location / / Volume Laterality Blood specimen 08/11/2017 4:07 AM 018 4:07 (specimen) EST AM EST Yonathan Smith MD POINT OF CARE TEST ORDERABLE S Performing Organization Address City/[facility]/ZIP Code Ph[place] [address] POCT Glucose (08/10/2017 11:59 PM EST) athologist Signature POC Glucose 166 65 - 199 [facility] mg/dL [facility] LABORATORY Comment: Supplemental ranges: <140 mg/dL before meals <180 mg/dL all other times of the day Specimen Anatomical Collection Method Collection Time Receive d Time (Source) Location / / Volume Laterality Blood specimen 08/10/2017 11:59 8 (specimen) PM EST 11:59 PM EST Yonathan Smith MD POINT OF CARE TEST ORDERABLE S Performing Organization Address City/[facility]/ZIP Code Phon e Number [place] [address] POCT Glucose (08/10/2017 8:12 PM EST) athologist Signature POC Glucose 156 65 - 199 [facility] mg/dL [facility] LABORATORY Comment: Supplemental ranges: <140 mg/dL before meals <180 mg/dL all other times of the day Specimen Anatomical Collection Method Collection Time Receive d Time (Source) Location / / Volume Laterality Blood specimen 08/10/2017 8:12 PM 018 8:12 (specimen) EST PM EST Yonathan Smith MD POINT OF CARE TEST ORDERABLE S Performing Organization Address City/[facility]/ZIP Code Ph[place] [address] (ABNORMAL) POCT Glucose (08/10/2017 4:42 PM EST) athologist Signature POC Glucose 211 (H) 65 - 199 [place] mg/dL [facility] LABORATORY Comment: Supplemental ranges: <140 mg/dL before meals <180 mg/dL all other times of the day Specimen Anatomical Collection Method Collection Time Receive d Time (Source) Location / / Volume Laterality Blood specimen 08/10/2017 4:42 PM 018 4:42 (specimen) EST PM EST Yonathan Smith MD POINT OF CARE TEST ORDERABLE S Performing Organization Address City/State/ZIP [place] [address] [facility] LAB[address] Drive (ABNORMAL) Differential, Automated (08/10/2017 2:30 PM EST) [facility] Method Time Signature Neutrophils % 87.6 % [facility] LABORATORY Neutr Abs (ANC) 9.90 (H) 1.70 - [facility] 6.10 [facility] x10(3)/[facility] L LABORATORY Lymphocytes % 4.3 % [facility] LABORATORY Lymphocytes Abs 0.5 (L) 0.9 - 3.2 [facility] x10(3)/[facility] LABORATORY Monocytes % 6.0 % [facility] LABORATORY Monocyte Abs 0.7 0.3 - 0.9 [facility] x10(3)/[facility] LABORATORY Eosinophils % 1.1 % [facility] LABORATORY Eosinophils Abs 0.1 0.0 - 0.4 [facility] x10(3)/[facility] LABORATORY Basophils % 0.4 % [facility] LABORATORY Basophils Abs 0.0 0.0 - 0.1 [facility] x10(3)/[facility] LABORATORY Immature Gran % 0.60 % ST. [...] Organization Address City/State/ZIP [place] [address] (ABNORMAL) Hemogram (08/10/2017 2:30 PM EST) Analysis Performed At Patho logist Time Signature WBC 11.3 (H) 4.0 - 9.5 [facility](3[facility] LABORATORY RBC 3.13 (L) 4.58 - [place] [facility] 5.54 [facility] x10(6)/[facility] LABORATORY Hemoglobin 8.9 (L) 13.7 - [facility] gm/dL [facility] LABORATORY Hematocrit 28.4 (L) 40.5 - [facility] 48.5 % [facility] LABORATORY MCV 90.7 82.9 - [facility] 93.1 [facility] LABORATORY MCH 28.4 27.5 - [facility] 32.1 pg [facility] LABORATORY MCHC 31.3 (L) 32.0 - [facility] 35.7 gm/dL [facility] LABORATORY Platelets 213 145 - 357 [facility] HOSPITAL x10(3)/[facility] LABORATORY RDWSD 53.7 (H) 36.0 - [facility] 45.0 [facility] LABORATORY RDWCV 16.4 (H) 11.4 - [facility] 13.8 % [facility] LABORATORY MPV 8.9 7.6 - 12.9 [facility] LABORATORY nRBC % Auto 0.0 % [facility] LABORATORY nRBC Abs Auto 0.000 0.000 - [facility] 0.000 [facility] x10(3)/[facility] LABORATORY Specimen Anatomical Collection Method Collection Time Receive d Time (Source) Location / / Volume Laterality Blood specimen 08/10/2017 2:30 PM 018 2:48 (specimen) EST PM EST Resulting Agency Comment Spec In Lab Yonathan Smith MD HEMATOLOGY ORDERABLES Performing Organization Address City/State/ZIP [place] [address] (ABNORMAL) POCT Glucose (08/10/2017 1:50 PM EST) P athologist Signature POC Glucose 243 (H) 65 - 199 [facility] mg/dL [facility] LABORATORY Comment: Supplemental ranges: <140 mg/dL before meals <180 mg/dL all other times of the day Specimen Anatomical Collection Method Collection Time Receive d Time (Source) Location / / Volume Laterality Blood specimen 08/10/2017 1:50 PM 018 1:50 (specimen) EST PM EST Yonathan Smith MD POINT OF CARE TEST ORDERABLE S Performing Organization Address City/State/ZIP Code Phon e Number [address] POCT Glucose (08/10/2017 11:21 AM EST) P athologist Signature POC Glucose 156 65 - 199 [facility] mg/dL [facility] LABORATORY Comment: Supplemental ranges: <140 mg/dL before meals <180 mg/dL all other times of the day Specimen Anatomical Collection Method Collection Time Receive d Time (Source) Location / / Volume Laterality Blood specimen 08/10/2017 11:21 8 (specimen) AM EST 11:21 AM EST Yonathan Smith MD POINT OF CARE TEST ORDERABLE S Performing Organization Address City/State/[place] [address] (ABNORMAL) Differential, Automated (08/10/2017 10:28 AM EST) Patholo gist Method Time Signature Neutrophils % 85.3 % [facility] LABORATORY Neutr Abs (ANC) 9.43 (H) 1.70 - [facility] 6.10 [facility] x10(3)/[facility] L LABORATORY Lymphocytes % 5.5 % [facility] LABORATORY Lymphocytes Abs 0.6 (L) 0.9 - 3.2 [facility] x10(3)/[facility] LABORATORY Monocytes % 5.9 % [facility] LABORATORY Monocyte Abs 0.6 0.3 - 0.9 [facility] x10(3)/[facility] LABORATORY Eosinophils % 2.1 % [facility] LABORATORY Eosinophils Abs 0.2 0.0 - 0.4 [facility] x10(3)/[facility] LABORATORY Basophils % 0.4 % [facility] LABORATORY Basophils Abs 0.0 0.0 - 0.1 [facility] x10(3)/[facility] LABORATORY Immature Gran % 0.80 % [facility] LABORATORY Comment: Immature [...] Organization Address City/State/[place] [address] (ABNORMAL) Hemogram (08/10/2017 10:28 AM EST) Analysis Performed At Patho logist Time Signature WBC 11.0 (H) 4.0 - 9.5 [facility] x10(3)/[facility] LABORATORY RBC 3.02 (L) 4.58 - [facility] 5.54 [facility] x10(6)/[facility] LABORATORY Hemoglobin 8.8 (L) 13.7 - [facility] 16.5 gm/dL [facility] LABORATORY Hematocrit 28.1 (L) 40.5 - [facility] SU 48.5 % [facility] LABORATORY MCV 93.0 82.9 - [facility] 93.1 [facility] LABORATORY MCH 29.1 27.5 - [place] [facility] 32.1 pg [facility] LABORATORY MCHC 31.3 (L) 32.0 - [facility] 35.7 gm/dL [facility] LABORATORY Platelets 207 145 - 357 [facility] x10(3)/[facility] LABORATORY RDWSD 55.3 (H) 36.0 - [place] [facility] 45.0 [facility] LABORATORY RDWCV 16.4 (H) 11.4 - [facility] 13.8 % [facility] LABORATORY MPV 9.0 7.6 - 12.9 [facility] LABORATORY nRBC % Auto 0.0 % [facility] LABORATORY nRBC Abs Auto 0.000 0.000 - [facility] 0.000 [facility] x10(3)/[facility] LABORATORY Specimen Anatomical Collection Method Collection Time Receive d Time (Source) Location / / Volume Laterality Blood specimen 08/10/2017 10:28 8 (specimen) AM EST 10:35 AM EST Resulting Agency Comment Spec In Lab Yonathan Smith MD HEMATOLOGY ORDERABLES Performing Organization Address City/State/ZIP [place] [address] VS Angiogram/intervention (vascular) (08/10/2017 [...] 2.5x80 5. Completion RLE angiogram 6. L TECHNICAL DESIGNER angiogram 7. 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 L TECHNICAL DESIGNER access in the distal L TECHNICAL DESIGNER. - Closure device: Mynx Technical Procedure: ?The [...] for a 45cm 5F Destination. V18 and [place] a nd QuickCross catheters were used to [...] bifurcation. Access appeared in the distal R TECHNICAL DESIGNER. Closure and sheath removal was performed with [...] 2.5x80 5. Completion RLE angiogram 6. L TECHNICAL DESIGNER angiogram 7. 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 L TECHNICAL DESIGNER access in the distal L TECHNICAL DESIGNER. - Closure device: Mynx Technical Procedure: The [...] for a 45cm 5F Destination. V18 and [place] a nd QuickCross catheters were used to [...] bifurcation. Access appeared in the distal R TECHNICAL DESIGNER. Closure and sheath removal was performed with [...] (ABNORMAL) Differential, Automated (08/10/2017 5:50 AM EST) [facility] Method Time Signature Neutrophils % 80.1 % [facility] LABORATORY Neutr Abs (ANC) 9.01 (H) 1.70 - [facility] 6.10 [facility] x10(3)/[facility] LABORATORY Lymphocytes % 8.8 % [facility] LABORATORY Lymphocytes Abs 1.0 0.9 - 3.2 [facility] x10(3)/[facility] LABORATORY Monocytes % 8.3 % [facility] LABORATORY Monocyte Abs 0.9 0.3 - 0.9 [facility] x10(3)/[facility] LABORATORY Eosinophils % 2.0 % [facility] LABORATORY Eosinophils Abs 0.2 0.0 - 0.4 [facility] x10(3)/[facility] LABORATORY Basophils % 0.4 % [facility] LABORATORY Basophils Abs 0.0 0.0 - 0.1 [facility] x10(3)/[facility] LABORATORY Immature Gran % 0.40 % [...] Organization Address City/State/[place] [address] (ABNORMAL) Hemogram (08/10/2017 5:50 AM EST) Analysis Performed At Patho logist Time Signature WBC 11.3 (H) 4.0 - 9.5 [facility] LABORATORY RBC 3.15 (L) 4.58 - [place] [facility] 5.54 [facility] x10(6)/[facility] LABORATORY Hemoglobin 8.9 (L) 13.7 - [facility] 16.5 gm/dL [facility] LABORATORY Hematocrit 29.0 (L) 40.5 - [facility] 48.5 % [facility] LABORATORY MCV 92.1 82.9 - [facility] 93.1 [facility] LABORATORY MCH 28.3 27.5 - [place] [facility] 32.1 pg [facility] LABORATORY MCHC 30.7 (L) 32.0 - [facility] 35.7 gm/dL [facility] LABORATORY Platelets 231 145 - 357 [facility] x10(3)/[facility] LABORATORY RDWSD 53.9 (H) 36.0 - [facility] 45.0 [facility] LABORATORY RDWCV 16.2 (H) 11.4 - [facility] 13.8 % [facility] LABORATORY MPV 8.7 7.6 - 12.9 [facility] nRBC % Auto 0.0 % [facility] LABORATORY nRBC Abs Auto 0.000 0.000 - [facility] SU 0.000 [facility] x10(3)/[facility] LABORATORY Specimen Anatomical Collection Method Collection Time Receive d Time (Source) Location / / Volume Laterality Blood specimen 08/10/2017 5:50 AM 018 5:59 (specimen) EST AM EST Resulting Agency Comment Spec In Lab Yonathan Smith MD HEMATOLOGY ORDERABLES Performing Organization Address City/State/[place] [address] (ABNORMAL) Basic Metabolic Panel (non-fasting) (08/10/2017 5:50 AM EST) athologist Signature Glucose Lvl 135 65 - 199 [facility] mg/dL [facility] LABORATORY Comment: Diabetes: >=200 mg/dL plus symp toms BUN 17 10 - 20 mg/dL [facility] LABORATORY Creatinine 1.05 0.80 - [...] 107 mmol/L [facility] LABORATORY CO2 27 22 - 31 mmol/L [facility] LABORATORY Anion Gap 13 5 - 15 mmol/L [facility] LABORATORY Calcium 8.1 (L) 8.5 - 10.5 mg/dL [facility] LABORATORY Estimated GFR >60 >=60 [facility] LABORATORY Comment: The reported eGFR should be multiplied b y 1.2 for patients. The MDRD is not an appropriate measure o f renal function for patients with body mass extremes or in patients with acute kidney failure. http://20lines[employer]/DHnkdep http://Haolianluo/DHMCnkf Specimen Anatomical Collection Method Collection Time Receive d Time (Source) Location / / Volume Laterality Blood specimen 08/10/2017 5:50 AM 018 5:59 (specimen) EST AM EST Resulting Agency Comment Spec In Lab Yonathan Smith MD CHEMISTRY ORDERABLES Performing Organization Address City/State/ZIP [place] [address] (ABNORMAL) Prothrombin Time (08/10/2017 5:50 AM EST) athologist Signature PT 16.8 (H) 11.8 - 14.0 [facility] LABORATORY INR 1.4 (H) 0.9 - 1.1 [facility] [...] Smith MD HEMATOLOGY ORDERABLES Performing Organization Address City/[facility]/[place] [address] (ABNORMAL) POCT Glucose (08/10/2017 4:01 AM EST) athologist Signature POC Glucose 206 (H) 65 - 199 [facility] mg/dL [facility] LABORATORY Comment: Supplemental ranges: <140 mg/dL before meals <180 mg/dL all other times of the day Specimen Anatomical Collection Method Collection Time Receive d Time (Source) Location / / Volume Laterality Blood specimen 08/10/2017 4:01 AM 018 4:01 (specimen) EST AM EST Yonathan Smith MD POINT OF CARE TEST ORDERABLE S Performing Organization Address City/[facility]/[place] [address] POCT Glucose (08/10/2017 2:01 AM EST) P athologist Signature POC Glucose 188 65 - 199 [facility] mg/dL [facility] LABORATORY Comment: Supplemental ranges: <140 mg/dL before meals <180 mg/dL all other times of the day Specimen Anatomical Collection Method Collection Time Receive d Time (Source) Location / / Volume Laterality Blood specimen 08/10/2017 2:01 AM 018 2:01 (specimen) EST AM EST Yonathan Smith MD POINT OF CARE TEST ORDERABLE S Performing Organization Address City/State/[place] [address] (ABNORMAL) POCT Glucose (08/09/2017 11:42 PM EST) athologist Signature POC Glucose 283 (H) 65 - 199 [facility] mg/dL [facility] LABORATORY Comment: Supplemental ranges: <140 mg/dL before meals <180 mg/dL all other times of the day Specimen Anatomical Collection Method Collection Time Receive d Time (Source) Location / / Volume Laterality Blood specimen 08/09/2017 11:42 8 (specimen) PM EST 11:42 PM EST Yonathan Smith MD POINT OF CARE TEST ORDERABLE S Performing Organization Address City/[facility]/[place] [address] POCT Glucose (08/09/2017 8:55 PM EST) athologist Signature POC Glucose 182 65 - 199 [facility] mg/dL [facility] LABORATORY Comment: Supplemental ranges: <140 mg/dL before meals <180 mg/dL all other times of the day Specimen Anatomical Collection Method Collection Time Receive d Time (Source) Location / / Volume Laterality Blood specimen 08/09/2017 8:55 PM 018 8:55 (specimen) EST PM EST Yonathan Smith MD POINT OF CARE TEST ORDERABLE S Performing Organization Address City/State/[place] [address] (ABNORMAL) APTT (08/09/2017 6:42 PM EST) athologist Signature PTT 90 (H) 25 - [address] [facility] LABORATORY Comment: The recommended therapeutic range for fu ll dose, unfractionated heparin at [facility] [place] [place] is 80 ? 114 seconds. The use [...] Smith MD HEMATOLOGY ORDERABLES Performing Organization Address City/[facility]/ZIP Code Phon e Number [address] POCT Glucose (08/09/2017 4:41 PM EST) athologist Signature POC Glucose 195 65 - 199 [facility] mg/dL [facility] LABORATORY Comment: Supplemental ranges: <140 mg/dL before meals <180 mg/dL all other times of the day Specimen Anatomical Collection Method Collection Time Receive d Time (Source) Location / / Volume Laterality Blood specimen 08/09/2017 4:41 PM 018 4:41 (specimen) EST PM EST Yonathan Smith MD POINT OF CARE TEST ORDERABLE S Performing Organization Address City/[facility]/ZIP Code Phon e Number [address] POCT Glucose (08/09/2017 12:29 PM EST) athologist Signature POC Glucose 140 65 - 199 [facility] mg/dL [facility] LABORATORY Comment: Supplemental ranges: <140 mg/dL before meals <180 mg/dL all other times of the day Specimen Anatomical Collection Method Collection Time Receive d Time (Source) Location / / Volume Laterality Blood specimen 08/09/2017 12:29 8 (specimen) PM EST 12:29 PM EST Yonathan Smith MD POINT OF CARE TEST ORDERABLE S Performing Organization Address City/[facility]/[place] [address] POCT Glucose (08/09/2017 9:59 AM EST) athologist Signature POC Glucose 135 65 - 199 [facility] SU mg/dL [facility] LABORATORY Comment: Supplemental ranges: <140 mg/dL before meals <180 mg/dL all other times of the day Specimen Anatomical Collection Method Collection Time Receive d Time (Source) Location / / Volume Laterality Blood specimen 08/09/2017 9:59 AM 018 9:59 (specimen) EST AM EST Yonathan Smith MD POINT OF CARE TEST ORDERABLE S Performing Organization Address City/[facility]/ZIP Code Phon e Number [address] Specimen to Pathology (08/09/2017 8:41 AM EST) Specimen Anatomical Collection Method Collection Time Receive d Time (Source) Location / / Volume Laterality AP Specimen 08/09/2017 8:41 AM 8 8:41 EST AM [address] [facility] LABORAT ORY - 08/09/2017 8:41 AM EST Specimen requisition ordered. ??Separate Pathology report to follow Yonathan Smith MD PATHOLOGY/CYTOLOGY ORDERABLE S Performing Organization Address [facility]/ZIP Code Phon e Number [address] Surgical Pathology Report (08/09/2017 8:40 AM EST) Component Value Ref Test Analysis Performed At [facility] Range Method Time Signature Surgical [id number] ? Location: [facility]; [facility]; [facility] Report The signing pathologist has (i) examined the relevant preparation(s) for the [facility] specimen(s) and (ii) rendered or confirmed the diagnosis(es) . HOSPITAL LABORATORY . 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 ?Viable proximal resection margins. Electronically signed by: ??Henrique Saravia MD Verified: ??08/13/2017 ?Pathologist Performed at: ??-[facility] [place] [place] Dept. of Pathology, [place], [place] CLINICAL INFORMATION Specimen Submitted: A - [...] Organization Address City/State/[place] [address] Anaerobic Culture (08/09/2017 8:30 AM EST) Growish Method Time Signature Anaerobic No anaerobic [facility] Culture organisms [facility] LABORATORY Specimen Anatomical Collection Method Collection [...] Organization Address City/State/[place] [address] (ABNORMAL) Abscess/Wound Aspirate Culture (08/09/2017 8:30 AM EST) Patholo gist Method Time Signature Abscess/Wound Moderate mixed [place] Aspirate bacterial [address] Culture morphotypes [facility] normal LABORATORY cutaneous leroy (A) Gram Stain Rare White Blood Cells [facility] Few Gram Positive Cocci in pairs [address] (A) [facility] LABORATORY Organism Gram Positive [place] Cocci in pairs [address] (A) [facility] LABORATORY Specimen Anatomical Collection Method Collection Time Receive d Time (Source) Location / / Volume Laterality Specimen from STRUCTURE OF RIGHT 08/09/2017 8:30 AM 9:10 abscess FOOT / Unknown EST AM EST (specimen) Comment: SWAB RIGHT GREAT TOE ABSCESS FO R AEROBIC AND ANAEROBIC CULTURES. Resulting Agency Comment Spec In Lab Yonathan Smith MD MICROBIOLOGY - GENERAL ORDER ROBSON Performing Organization Address City/[facility]/ZIP Code Phon e Number [address] POCT Glucose (08/09/2017 4:28 AM EST) P athologist Signature POC Glucose 128 65 - 199 [facility] mg/dL [facility] LABORATORY Comment: Supplemental ranges: <140 mg/dL before meals <180 mg/dL all other times of the day Specimen Anatomical Collection Method Collection Time Receive d Time (Source) Location / / Volume Laterality Blood specimen 08/09/2017 4:28 AM 018 4:28 (specimen) EST AM EST Yonathan Smith MD POINT OF CARE TEST ORDERABLE S Performing Organization Address City/[facility]/ZIP Code Phon e Number [address] ABORH Recheck Status (08/09/2017 1:10 AM EST) [facility] gist Method Time Signature ABORH Type Completed [facility] LABORATORY Specimen Anatomical Collection Method Collection Time Receive d Time (Source) Location / / Volume Laterality Blood specimen 08/09/2017 1:10 AM 018 1:35 (specimen) EST AM EST Resulting Agency Comment Spec In Lab Yonathan Smith MD BLOOD BANK ORDERABLES Performing Organization Address City/[facility]/[place] [address] Antibody screen (08/09/2017 1:10 AM EST) Patholo gist Method Time Signature Ab Screen Negative [facility] LABORATORY Expires at 08/12/2017 [place] ZHAOSU [id number] on: [facility] LABORATORY Specimen Anatomical Collection Method Collection Time Receive d Time (Source) Location / / Volume Laterality Blood specimen 08/09/2017 1:10 AM 018 1:35 (specimen) EST AM EST Resulting Agency Comment Spec In Lab Yonathan Smith MD BLOOD BANK ORDERABLES Performing Organization Address City/[facility]/[place] [address] ABO/Rh Typing (08/09/2017 1:10 AM EST) P athologist Signature ABORh Type O Pos [facility] LABORATORY Specimen Anatomical Collection Method Collection Time Receive d Time (Source) Location / / Volume Laterality Blood specimen 08/09/2017 1:10 AM 018 1:35 (specimen) EST AM EST Resulting Agency Comment Spec In Lab Yonathan Smith MD BLOOD BANK ORDERABLES Performing Organization Address City/[facility]/[place] [address] (ABNORMAL) APTT (08/09/2017 1:10 AM EST) P athologist Signature PTT 86 (H) 25 - [address] [facility] LABORATORY Comment: The recommended therapeutic range for fu ll dose, unfractionated heparin at [facility] [place] [place] is 80 ? 114 seconds. The use [...] Smith MD HEMATOLOGY ORDERABLES Performing Organization Address City/[facility]/[place] [address] (ABNORMAL) Differential, Automated (08/09/2017 1:10 AM EST) Patholo gist Method Time Signature Neutrophils % 76.2 % [facility] LABORATORY Neutr Abs (ANC) 8.59 (H) 1.70 - [facility] 6.10 [facility] x10(3)/[facility] LABORATORY Lymphocytes % 11.0 % [facility] LABORATORY Lymphocytes Abs 1.2 0.9 - 3.2 [facility] x10(3)/[facility] LABORATORY Monocytes % 8.4 % [facility] LABORATORY Monocyte Abs 1.0 (H) 0.3 - 0.9 [facility] x10(3)/[facility] LABORATORY Eosinophils % 3.5 % [facility] LABORATORY Eosinophils Abs 0.4 0.0 - 0.4 [facility] x10(3)/[facility] LABORATORY Basophils % 0.5 % [facility] LABORATORY Basophils Abs 0.1 0.0 - 0.1 [facility] x10(3)/[facility] LABORATORY Immature Gran % 0.40 % [...] Organization Address City/State/ZIP [place] [address] (ABNORMAL) Hemogram (08/09/2017 1:10 AM EST) Analysis Performed At Patho logist Time Signature WBC 11.3 (H) 4.0 - 9.5 [facility] x10(3)/[facility] LABORATORY RBC 3.47 (L) 4.58 - [facility] SU 5.54 [facility] x10(6)/[facility] LABORATORY Hemoglobin 10.0 (L) 13.7 - [facility] 16.5 gm/dL [facility] LABORATORY Hematocrit 31.9 (L) 40.5 - [facility] 48.5 % [facility] LABORATORY MCV 91.9 82.9 - [facility] 93.1 [facility] LABORATORY MCH 28.8 27.5 - [facility] 32.1 pg [facility] LABORATORY MCHC 31.3 (L) 32.0 - [facility] 35.7 gm/dL [facility] LABORATORY Platelets 234 145 - 357 [facility] x10(3)/[facility] LABORATORY RDWSD 54.0 (H) 36.0 - [facility] 45.0 [facility] RDWCV 16.2 (H) 11.4 - [facility] 13.8 % [facility] LABORATORY MPV 8.7 7.6 - 12.9 [facility] LABORATORY nRBC % Auto 0.0 % [facility] LABORATORY nRBC Abs Auto 0.000 0.000 - [facility] 0.000 [facility] x10(3)/[facility] LABORATORY Specimen Anatomical Collection Method Collection Time Receive d Time (Source) Location / / Volume Laterality Blood specimen 08/09/2017 1:10 AM 018 1:19 (specimen) EST AM EST Resulting Agency Comment Spec In Lab Yonathan Smith MD HEMATOLOGY ORDERABLES Performing Organization Address City/State/ZIP [place] [address] (ABNORMAL) Prothrombin Time (08/09/2017 1:10 AM EST) athologist Signature PT 16.0 (H) 11.8 - 14.0 [facility] LABORATORY INR 1.3 (H) 0.9 - 1.1 [facility] [...] Organization Address City/State/ZIP [place] [address] (ABNORMAL) Basic Metabolic Panel (non-fasting) (08/09/2017 1:10 AM EST) athologist Signature Glucose Lvl 108 65 - 199 [facility] mg/dL [facility] Comment: Diabetes: >=200 mg/dL plus symp toms BUN 34 (H) 10 - 20 mg/dL [facility] Creatinine 1.54 (H) 0.80 - 1.50 mg/dL [facility] Sodium 138 135 - 145 mmol/L [facility] 107 mmol/L [facility] CO2 29 22 - 31 mmol/L [facility] Anion Gap 13 5 - 15 mmol/L [facility] Calcium 8.3 (L) 8.5 - 10.5 mg/dL [facility] Estimated GFR 45 (L) >=60 [facility] Comment: The reported eGFR should be multiplied b y 1.2 for patients. The MDRD is not an appropriate measure o f renal function for patients with body mass extremes or in patients with acute kidney failure. http://20lines.[employer]/DHnkdep http://Haolianluo/DHMCnkf Specimen Anatomical Collection Method Collection Time Receive d Time (Source) Location / / Volume Laterality Blood specimen 08/09/2017 1:10 AM 018 1:19 (specimen) EST AM EST Resulting Agency Comment Spec In Lab Yonathan Smith MD CHEMISTRY ORDERABLES Performing Organization Address City/State/ZIP Code Phon e Number [address] POCT Glucose (08/09/2017 12:05 AM EST) athologist Signature POC Glucose 128 65 - 199 [facility]dL [facility] Comment: Supplemental ranges: <140 mg/dL before meals <180 mg/dL all other times of the day Specimen Anatomical Collection Method Collection Time Receive d Time (Source) Location / / Volume Laterality Blood specimen 08/09/2017 12:05 8 (specimen) AM EST 12:05 AM EST Yonathan Smith MD POINT OF CARE TEST ORDERABLE S Performing Organization Address City/[facility]/[place] [address] (ABNORMAL) POCT Glucose (08/08/2017 7:36 PM EST) athologist Signature POC Glucose 215 (H) 65 - 199 [facility]dL [facility] Comment: Supplemental ranges: <140 mg/dL before meals <180 mg/dL all other times of the day Specimen Anatomical Collection Method Collection Time Receive d Time (Source) Location / / Volume Laterality Blood specimen 08/08/2017 7:36 PM 018 7:36 (specimen) EST PM EST Yonathan Smith MD POINT OF CARE TEST ORDERABLE S Performing Organization Address City/[facility]/ZIP Code Phon e Number [address] (ABNORMAL) POCT Glucose (08/08/2017 6:23 PM EST) athologist Signature POC Glucose 216 (H) 65 - 199 [place] mg/dL [facility] Comment: Supplemental ranges: <140 mg/dL before meals <180 mg/dL all other times of the day Specimen Anatomical Collection Method Collection Time Receive d Time (Source) Location / / Volume Laterality Blood specimen 08/08/2017 6:23 PM 018 6:23 (specimen) EST PM EST Yonathan Smith MD POINT OF CARE TEST ORDERABLE S Performing Organization Address City/[facility]/[place] [address] (ABNORMAL) APTT (08/08/2017 6:00 PM EST) athologist Signature PTT 97 (H) 25 - [address] [facility] Comment: The recommended therapeutic range for fu ll dose, unfractionated heparin at [facility] [place] [place] is 80 ? 114 seconds. The use [...] Smith MD HEMATOLOGY ORDERABLES Performing Organization Address City/[facility]/[place] [address] POCT Glucose (08/08/2017 4:42 PM EST) athologist Signature POC Glucose 78 65 - 199 [facility]dL [facility] Comment: Supplemental ranges: <140 mg/dL before meals <180 mg/dL all other times of the day Specimen Anatomical Collection Method Collection Time Receive d Time (Source) Location / / Volume Laterality Blood specimen 08/08/2017 4:42 PM 018 4:42 (specimen) EST PM EST Yonathan Smith MD POINT OF CARE TEST ORDERABLE S Performing Organization Address City/[facility]/[place] [address] (ABNORMAL) POCT Glucose (08/08/2017 4:01 PM EST) athologist Signature POC Glucose 58 (L) 65 - 199 [facility] mg/dL [facility] Comment: Supplemental ranges: <140 mg/dL before meals <180 mg/dL all other times of the day Specimen Anatomical Collection Method Collection Time Receive d Time (Source) Location / / Volume Laterality Blood specimen 08/08/2017 4:01 PM 018 4:01 (specimen) EST PM EST Yonathan Smith MD POINT OF CARE TEST ORDERABLE S Performing Organization Address City/[facility] Phon e Number [address] POCT Glucose (08/08/2017 11:51 AM EST) athologist Signature POC Glucose 90 65 - 199 [facility] mg/dL [facility] Comment: Supplemental ranges: <140 mg/dL before meals <180 mg/dL all other times of the day Specimen Anatomical Collection Method Collection Time Receive d Time (Source) Location / / Volume Laterality Blood specimen 08/08/2017 11:51 8 (specimen) AM EST 11:51 AM EST Yonathan Smith MD POINT OF CARE TEST ORDERABLE S Performing Organization Address [facility] [place] [address] (ABNORMAL) APTT (08/08/2017 10:27 AM EST) athologist Signature PTT 64 (H) 25 - [address] [facility] Comment: The recommended therapeutic range for fu ll dose, unfractionated heparin at [facility] [place] [place] is 80 ? 114 seconds. The use [...] Organization Address City/State/[place] [address] POCT Glucose (08/08/2017 8:02 AM EST) athologist Signature POC Glucose 178 65 - 199 [facility] mg/dL [facility] Comment: Supplemental ranges: <140 mg/dL before meals <180 mg/dL all other times of the day Specimen Anatomical Collection Method Collection Time Receive d Time (Source) Location / / Volume Laterality Blood specimen 08/08/2017 8:02 AM 018 8:02 (specimen) EST AM EST Yonathan Smith MD POINT OF CARE TEST ORDERABLE S Performing Organization Address City/[facility]/ZIP Code Phon e Number [address] (ABNORMAL) APTT (08/08/2017 4:51 AM EST) athologist Signature PTT >160 25 - 35 [facility] (Critical) [facility]ORY Comment: Called by: HOWARD, Read back by: Melba Jaramillo, Date/Time:08/08/17 05:43. The recommended therapeutic range for fu ll dose, unfractionated heparin at [facility] [place] [place] is 80 ? 114 seconds. The use [...] Smith MD HEMATOLOGY ORDERABLES Performing Organization Address City/[facility]/ZIP Code Phon e Number [address] (ABNORMAL) Differential, Automated (08/08/2017 4:51 AM EST) Patholo gist Method Time Signature Neutrophils % 77.9 % [facility] Neutr Abs (ANC) 8.17 (H) 1.70 - [facility] 6.10 [facility] x10(3)/[facility] L LABORATORY Lymphocytes % 10.3 % [facility] Lymphocytes Abs 1.1 0.9 - 3.2 [facility] x10(3)/[facility] LABORATORY Monocytes % 7.0 % [facility] Monocyte Abs 0.7 0.3 - 0.9 [facility] x10(3)/[facility] LABORATORY Eosinophils % 3.6 % [facility] Eosinophils Abs 0.4 0.0 - 0.4 [facility] x10(3)/[facility] LABORATORY Basophils % 0.5 % [facility] Basophils Abs 0.0 0.0 - 0.1 [facility] x10(3)/[facility] LABORATORY Immature Gran % 0.70 % [...] Organization Address City/State/ZIP [place] [address] (ABNORMAL) Hemogram (08/08/2017 4:51 AM EST) Analysis Performed At Patho logist Time Signature WBC 10.5 (H) 4.0 - 9.5 [facility] x10(3)/[facility] LABORATORY RBC 3.27 (L) 4.58 - [facility] 5.54 [facility] x10(6)/[facility] LABORATORY Hemoglobin 9.3 (L) 13.7 - [place] [facility] 16.5 gm/dL [facility] Hematocrit 30.3 (L) 40.5 - [place] 48.5 % [facility] MCV 92.7 82.9 - [facility] 93.1 [facility] LABORATORY MCH 28.4 27.5 - [place] 32.1 pg [facility] MCHC 30.7 (L) 32.0 - [place] [facility] 35.7 gm/dL [facility] Platelets 252 145 - 357 [facility] x10(3)/[facility] LABORATORY RDWSD 54.6 (H) 36.0 - [place] [facility] 45.0 [facility] LABORATORY RDWCV 16.2 (H) 11.4 - [facility] SU 13.8 % [facility] MPV 9.1 7.6 - 12.9 [facility] LABORATORY nRBC % Auto 0.0 % [facility] nRBC Abs Auto 0.000 0.000 - [facility] SU 0.000 [facility] x10(3)/[facility] LABORATORY Specimen Anatomical Collection Method Collection Time Receive d Time (Source) Location / / Volume Laterality Blood specimen 08/08/2017 4:51 AM 018 5:14 (specimen) EST AM EST Resulting Agency Comment Spec In Lab Yonathan Smith MD HEMATOLOGY ORDERABLES Performing Organization Address City/State/ZIP [place] [address] (ABNORMAL) Prothrombin Time (08/08/2017 4:51 AM EST) P athologist Signature PT 18.1 (H) 11.8 - 14.0 [facility] LABORATORY INR 1.5 (H) 0.9 - 1.1 [facility] [...] Organization Address City/State/ZIP [place] [address] (ABNORMAL) Basic Metabolic Panel (non-fasting) (08/08/2017 4:51 AM EST) P athologist Signature Glucose Lvl 229 (H) 65 - 199 [facility] mg/dL [facility] Comment: Diabetes: >=200 mg/dL plus symp toms BUN 35 (H) 10 - 20 mg/dL [facility] Creatinine 1.57 (H) 0.80 [...] Chloride 94 (L) 98 - 107 mmol/L [facility] CO2 25 22 - 31 mmol/L [facility] Anion Gap 17 (H) 5 - 15 mmol/L [facility] Calcium 7.9 (L) 8.5 - 10.5 mg/dL [facility] Estimated GFR 44 (L) >=60 [facility] Comment: The reported eGFR should be multiplied b y 1.2 for patients. The MDRD is not an appropriate measure o f renal function for patients with body mass extremes or in patients with acute kidney failure. http://Haolianluo/DHnkdep http://Haolianluo/DHMCnkf Specimen Anatomical Collection Method Collection Time Receive d Time (Source) Location / / Volume Laterality Blood specimen 08/08/2017 4:51 AM 018 5:14 (specimen) EST AM EST Resulting Agency Comment Spec In Lab Yonathan Smith MD CHEMISTRY ORDERABLES Performing Organization Address City/[facility]/ZIP Code Phon e Number [address] POCT Glucose (08/08/2017 4:20 AM EST) athologist Signature POC Glucose 193 65 - 199 [facility] mg/dL [facility] Comment: Supplemental ranges: <140 mg/dL before meals <180 mg/dL all other times of the day Specimen Anatomical Collection Method Collection Time Receive d Time (Source) Location / / Volume Laterality Blood specimen 08/08/2017 4:20 AM 018 4:20 (specimen) EST AM EST Yonathan Smith MD POINT OF CARE TEST ORDERABLE S Performing Organization Address City/[facility]/[place] [address] POCT Glucose (08/07/2017 11:11 PM EST) athologist Signature POC Glucose 124 65 - 199 [facility] Comment: Supplemental ranges: <140 mg/dL before meals <180 mg/dL all other times of the day Specimen Anatomical Collection Method Collection Time Receive d Time (Source) Location / / Volume Laterality Blood specimen 08/07/2017 11:11 8 (specimen) PM EST 11:11 PM EST Yonathan Smith MD POINT OF CARE TEST ORDERABLE S Performing Organization Address City/[facility]/[place] [address] (ABNORMAL) APTT (08/07/2017 10:18 PM EST) athologist Signature PTT 114 (H) 25 - [address] [facility] Comment: The recommended therapeutic range for fu ll dose, unfractionated heparin at [facility] [place] [place] is 80 ? 114 seconds. The use [...] Address City/State/ZIP Code Phon e Number [address] POCT Glucose (08/07/2017 8:10 PM EST) athologist Signature POC Glucose 140 65 - 199 [place] [facility] mg/dL [facility] Comment: Supplemental ranges: <140 mg/dL before meals <180 mg/dL all other times of the day Specimen Anatomical Collection Method Collection Time Receive d Time (Source) Location / / Volume Laterality Blood specimen 08/07/2017 8:10 PM 018 8:10 (specimen) EST PM EST Yonathan Smith MD POINT OF CARE TEST ORDERABLE S Performing Organization Address City/[facility]/ZIP Code Phon e Number [address] POCT Glucose (08/07/2017 5:27 PM EST) athologist Signature POC Glucose 187 65 - 199 [place] [facility] mg/dL [facility] Comment: Supplemental ranges: <140 mg/dL before meals <180 mg/dL all other times of the day Specimen Anatomical Collection Method Collection Time Receive d Time (Source) Location / / Volume Laterality Blood specimen 08/07/2017 5:27 PM 018 5:27 (specimen) EST PM EST Yonathan Smith MD POINT OF CARE TEST ORDERABLE S Performing Organization Address City/State/ZIP Code Phon e Number [address] POCT Glucose (08/07/2017 3:29 PM EST) athologist Signature POC Glucose 86 65 - 199 [place] [facility] mg/dL [facility] Comment: Supplemental ranges: <140 mg/dL before meals <180 mg/dL all other times of the day Specimen Anatomical Collection Method Collection Time Receive d Time (Source) Location / / Volume Laterality Blood specimen 08/07/2017 3:29 PM 018 3:29 (specimen) EST PM EST Yonathan Smith MD POINT OF CARE TEST ORDERABLE S Performing Organization Address City/[facility]/[place] [address] (ABNORMAL) APTT (08/07/2017 2:50 PM EST) athologist Signature PTT 60 (H) 25 - [address] [facility] Comment: The recommended therapeutic range for fu ll dose, unfractionated heparin at [facility] [place] [place] is 80 ? 114 seconds. The use [...] Smith MD HEMATOLOGY ORDERABLES Performing Organization Address City/[facility]/[place] [address] (ABNORMAL) POCT Glucose (08/07/2017 2:23 PM EST) athologist Signature POC Glucose 55 (L) 65 - 199 [facility] mg/dL [facility] Comment: Supplemental ranges: <140 mg/dL before meals <180 mg/dL all other times of the day Specimen Anatomical Collection Method Collection Time Receive d Time (Source) Location / / Volume Laterality Blood specimen 08/07/2017 2:23 PM 018 2:23 (specimen) EST PM EST Yonathan Smith MD POINT OF CARE TEST ORDERABLE S Performing Organization Address City/[facility]/[place] [address] POCT Glucose (08/07/2017 12:08 PM EST) athologist Signature POC Glucose 77 65 - 199 [facility] mg/dL [facility] Comment: Supplemental ranges: <140 mg/dL before meals <180 mg/dL all other times of the day Specimen Anatomical Collection Method Collection Time Receive d Time (Source) Location / / Volume Laterality Blood specimen 08/07/2017 12:08 8 (specimen) PM EST 12:08 PM EST Yonathan Smith MD POINT OF CARE TEST ORDERABLE S Performing Organization Address City/State/ZIP [place] [address] (ABNORMAL) Differential, Automated (08/07/2017 7:30 AM EST) [facility] gist Method Time Signature Neutrophils % 73.8 % [facility] Neutr Abs (ANC) 7.17 (H) 1.70 - [facility] 6.10 [facility] x10(3)/[facility] LABORATORY Lymphocytes % 12.2 % [facility] Lymphocytes Abs 1.2 0.9 - 3.2 [facility] x10(3)/[facility] LABORATORY Monocytes % 9.0 % [facility] Monocyte Abs 0.9 0.3 - 0.9 [facility] x10(3)/[facility] LABORATORY Eosinophils % 3.9 % [facility] Eosinophils Abs 0.4 0.0 - 0.4 [facility] x10(3)/[facility] LABORATORY Basophils % 0.6 % [facility] Basophils Abs 0.1 0.0 - 0.1 [facility] x10(3)/[facility] LABORATORY Immature Gran % 0.50 % [...] Organization Address City/State/ZIP [place] [address] (ABNORMAL) Hemogram (08/07/2017 7:30 AM EST) Analysis Performed At Patho logist Time Signature WBC 9.7 (H) 4.0 - 9.5 [facility](3[facility] LABORATORY RBC 3.54 (L) 4.58 - [facility] SU 5.54 [facility] x10(6)/[facility] LABORATORY Hemoglobin 9.9 (L) 13.7 - [facility] 16[facility] gm/dL [facility] Hematocrit 32.3 (L) 40.5 - [facility] 48.5 % [facility] MCV 91.2 82.9 - [facility] 93.1 [facility] LABORATORY MCH 28.0 27.5 - [place] [facility] 32.1 pg [facility] MCHC 30.7 (L) 32.0 - [facility] 35.7 gm/dL [facility] Platelets 312 145 - 357 [facility] x10(3)/[facility] LABORATORY RDWSD 53.2 (H) 36.0 - [facility] 45.0 [facility] LABORATORY RDWCV 16.0 (H) 11.4 - [facility] SU 13.8 % [facility] LABORATORY MPV 8.9 7.6 - 12.9 [facility] nRBC % Auto 0.0 % [facility] nRBC Abs Auto 0.000 0.000 - [facility] SU 0.000 [facility] x10(3)/[facility] LABORATORY Specimen Anatomical Collection Method Collection Time Receive d Time (Source) Location / / Volume Laterality Blood specimen 08/07/2017 7:30 AM 018 7:45 (specimen) EST AM EST Resulting Agency Comment Spec In Lab Yonathan Smith MD HEMATOLOGY ORDERABLES Performing Organization Address City/State/ZIP Code [place] [address] (ABNORMAL) Basic Metabolic Panel (non-fasting) (08/07/2017 7:30 AM EST) P athologist Signature Glucose Lvl 80 65 - 199 [facility] mg/dL [facility] Comment: Diabetes: >=200 mg/dL plus symp toms BUN 31 (H) 10 - 20 mg/dL [facility] Creatinine 1.22 0.80 - [...] estions. Chloride 99 98 - 107 mmol/L [facility] CO2 29 22 - 31 mmol/L [facility] Anion Gap 12 5 - 15 mmol/L [facility] Calcium 8.5 8.5 - 10.5 mg/dL [facility] Estimated GFR 59 (L) >=60 [facility] Comment: The reported eGFR should be multiplied b y 1.2 for patients. The MDRD is not an appropriate measure o f renal function for patients with body mass extremes or in patients with acute kidney failure. http://20lines.M[employer]/DHnkdep http://20lines.Mob Science/DHMCnkf Specimen Anatomical Collection Method Collection Time Receive d Time (Source) Location / / Volume Laterality Blood specimen 08/07/2017 7:30 AM 018 7:45 (specimen) EST AM EST Resulting Agency Comment Spec In Lab Yonathan Smith MD CHEMISTRY ORDERABLES Performing Organization Address City/State/ZIP Code Phon e Number [address] POCT Glucose (08/07/2017 7:27 AM EST) athologist Signature POC Glucose 81 65 - 199 [facility] mg/dL [facility] Comment: Supplemental ranges: <140 mg/dL before meals <180 mg/dL all other times of the day Specimen Anatomical Collection Method Collection Time Receive d Time (Source) Location / / Volume Laterality Blood specimen 08/07/2017 7:27 AM 018 7:27 (specimen) EST AM EST Yonathan Smith MD POINT OF CARE TEST ORDERABLE S Performing Organization Address City/[facility]/[place] [address] APTT (08/07/2017 7:04 AM EST) athologist Signature PTT 34 25 - [address] [facility] Comment: The recommended therapeutic range for fu ll dose, unfractionated heparin at [facility] [place] [place] is 80 ? 114 seconds. The use [...] Smith MD HEMATOLOGY ORDERABLES Performing Organization Address City/[facility]/[place] [address] (ABNORMAL) Prothrombin Time (08/07/2017 7:04 AM EST) athologist Signature PT 17.3 (H) 11.8 - 14.0 [facility] LABORATORY INR 1.4 (H) 0.9 - 1.[facility] [...] EST Resulting Agency Comment Spec In Lab Yonahtan Smith MD HEMATOLOGY ORDERABLES Performing Organization Address City/[facility]/ZIP Code Phon e Number [address] POCT Glucose (08/07/2017 4:03 AM EST) athologist Signature POC Glucose 93 65 - 199 [facility] mg[facility]dL [facility] Comment: Supplemental ranges: <140 mg/dL before meals <180 mg/dL all other times of the day Specimen Anatomical Collection Method Collection Time Receive d Time (Source) Location / / Volume Laterality Blood specimen 08/07/2017 4:03 AM 018 4:03 (specimen) EST AM EST Yonathan Smith MD POINT OF CARE TEST ORDERABLE S Performing Organization Address City/[facility]/ZIP Code Phon e Number [address] POCT Glucose (08/07/2017 12:04 AM EST) athologist Signature POC Glucose 107 65 - 199 [facility] mg[facility]dL [facility] Comment: Supplemental ranges: <140 mg/dL before meals <180 mg/dL all other times of the day Specimen Anatomical Collection Method Collection Time Receive d Time (Source) Location / / Volume Laterality Blood specimen 08/07/2017 12:04 8 (specimen) AM EST 12:04 AM EST Yonathan Smith MD POINT OF CARE TEST ORDERABLE S Performing Organization Address City/[facility]/ZIP Code Phon e Number [address] POCT Glucose (08/06/2017 7:56 PM EST) athologist Signature POC Glucose 178 65 - 199 [facility] mg[facility]dL [facility] Comment: Supplemental ranges: <140 mg/dL before meals <180 mg/dL all other times of the day Specimen Anatomical Collection Method Collection Time Receive d Time (Source) Location / / Volume Laterality Blood specimen 08/06/2017 7:56 PM 018 7:56 (specimen) EST PM EST Yonathan Smith MD POINT OF CARE TEST ORDERABLE S Performing Organization Address City/State/ZIP [place] [address] TcPO2 (08/06/2017 2:32 PM EST) Component Value Ref Test Analysis Performed At [facility] Range Method Time Signature VB Text Department: Vascular Surgery Lab VASCUBASE Report Patient: [id number] (GREOGRY HOANG) CPT: 3522126 ICD10: I99.8 Referring Physician: YONATHAN SMITH ?? [...] dose, Starting on 08/07/17 at 1501, Until 08/07/17 at 1601, Pain, give for breakthrough pain after oxycodone oral medication., Routine HYDROmorphone (DILAUDID) injection 0.2 m g Given 08/07/2017 5:39 PM EST 0.2 mg 0.2 mg, Intravenous, ONCE, 1 dose, On 08/07/17 at 1715, Routine HYDROmorphone (DILAUDID) injection 0.3 [...] NIGHTLY, First dose (after last modification) on 08/14/17 at 2100, Until Discontinued, Routine Given 08/14/2017 [...] 2.5 mg, Oral, ONCE, 1 dose, On Wed08/15/17 at 1700, Routine documented in this encounter Active and Recently Administered Medications Times are shown in EST. Scheduled Medication Order 08/14/2017 08/15/2017 08/16/2017 acetaminophen (TYLENOL) tablet 1,000 mg 0500 (Given - Provider: Henrique Marks RN)1134 (Given - Provider: Chiquis Mcgrath RN)1725 (Given - Provider: Chiquis Mcgrath RN) 0501 (Given - Provider: Henrique ureña RN)1158 (Given - Provider: Chiquis Mcgrtah RN)1714 (Given - Provider: Chiquis Mcgrath RN) [...] Plus 1726 (New Bag - Provider: Chiquis cho, VAMSI)1756 (Stopped - Provider: Henrique Marks RN) 1715 (New Bag - Provider: Chiuqis cho RN)1745 (Stopped - Provider: Chiquis Mcgrath [...] Discontinued, Routine furosemide (LASIX) tablet 40 mg 08 (Given - Provider: Elias Mcgrath RN) 08 (Given - Provider: Chiquis Mcgrath RN) 0800 (Given - Provider: Dory Truong, VAMSI) 40 mg, Oral, DAILY, First dose on 07/12 at 1700, Until Discontinued, Routine insulin glargine VIAL injection 15 Units 2009 (Given - Provider: Henrique Marks RN) 2025 (Given - Provider: Mira Truong, VAMSI) 15 Units, Subcutaneous, NIGHTLY, First d ose on Wed08/06/17 at 2100, Until Discontinued, If patient is NPO for procedure, give 7.5 Units of glargine the night before., Routine insulin lispro (humaLOG) VIAL injection 11 Units 08 (Given - Provider: Chiquis Mcgrath RN)1212 (Given [...] Provider: Chiquis Mcgrath RN - Comment: BG 141)173 (Given - Provider: Chiquis Mcgrath RN - [...] than 240, repeat 8 units (no mo 2357 ( Given - Provider: Mira Truong, RN) re than three times) & call for new basa l insulin orders. DO NOT hold if NPO, unless specifically told to do so., Routine levothyroxine (SYNTHROID) tablet 175 mcg 0501 (Given - Provider: Henrique Marks, VAMSI) 0502 (Given - Provider: Henrique Marks, RN) [...] Marks RN) 0445 (Patch Removed - Provider: Hernique Marks RN) 0900 (Patch Removed - Provider: Dory Truong, VAMSI) Transdermal, EVERY 24 HOURS, First dose on Wed08/07/17 at 0445, Until Discontinued, Remove lidocaine 5 %(700 mg/patch) patch lisinopril (PRINIVIL;ZESTRIL) tablet 2.5 mg 0825 (Give n - Provider: Chiquis Mcgrath RN) 0806 (Given - Provider: Chiquis Mcgrath, VAMSI) 0800 (G iven - Provider: Dory Truong, VAMSI) 2.5 mg, Oral, DAILY, First dose on Wed at 0900, Until Discontinued, Routine magnesium oxide (MAG-OX) tablet 400 mg 0826 (Given - P rovider: Chiquis Mcgrath RN)2010 (Given - Provider: Henrique Marks RN) 08 (Given - Provider: Chiquis Mcgrath RN)2024 (Given - Provider: Mira Truong, RN) 0800 (Given - Provider: Dory Truong RN) 400 [...] to hold) 0800 (Given - Provider: Dory Truong, VAMSI) 25 mg, Oral, 2 TIMES DAILY, First [...] Mcgrath RN) 0631 (Given - Provider: Mira Truong, VAMSI) 5 mL, Intravenous, EVERY 12 HOURS, First [...] discontinued. warfarin (COUMADIN) tablet 2.5 mg (COMPLETED) 1724 (Gi keke - Provider: Chiquis Mcgrath, VAMSI) 2.5 mg, Oral, ONCE, 1 dose, 08/14/17 [...] Intramuscular, EVERY 1 HOUR PRN, S tarting 08/06/17 at 1629, Until 08/16/17 at 1425, Low [...] Chiquis Mcgrath RN)1159 (Given - Provider: Chiquis Mcgrath, VAMSI)1542 (Given - Provider: Kim Borges, VAMSI)2144 (Given - Provider: Alyson Middleton RN) 0427 (Given - Provider: Mira Truong, RN)0751 (Given - Provider: Dory Truong, VAMSI)1042 (Given - Provider: Dory Truong, VAMSI) 2-4 mg, Oral, EVERY 3 HOURS PRN, [...] 4 HOURS, First occurrence on Wed08/06/17 at 1999, Until Specified
Consider choosing EVERY 4 HOURS as frequency for: - Type 1 Diabetes - At least 24 hours after coming off an insu shanbam drip - At least 24 hours after [...] 1629, Until 08/16/17 at 1425, Low blood sugar
For BG [...]
Routine documented in this encounter Care Teams Health Counselor Relationship Specialty Start Date End Date Lovely Vicente MD PCP - General 04/16/[address] [place] [id number] documented as of this encounter
--- OUTSIDE RECORDS SUMMARY | 2022-02-20 01:43 | XMS_ITS | Encounter Summary ---
:1945 Author Organization [facility] [place] [address] Care Team Providers Name Role Phone Lovely Vicente MD Primary Care Provider Reason for Visit Auth/Cert Specialty Diagnoses / Procedures Referred By Contact Refer red To Contact Diagnoses Critical lower limb ischemia CELLULITIS RT FOOT Procedures EMERGENCY Referral ID Status Reason Start Date Expiration Date Visits Requ ested Visits Authorized [id number] 1 1 Encounter Details Date Type Department Care Team Description 08/11/2017 Surgery Main Operating Room Yonathan Smith (M SURG) DRESSING CHANGE Barbara Ocampo MD (FOR OTHER THAN IVAN) [facility] UNDER ANES. 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 Patient [...] Dorsalis Pedis (Ankle) Artery ?132 ? 0.94 ??[place]-Biphasic ? Posterior Tibial (Ankle) Artery ??154 ? 1.10 ??[place]-Biphasic ? Fourth Toe ? 67 ?0.48 ?? [...] foot. Discharge Conditions/Prognosis: Good Discharge to: [facility] Rehab Discharge Medications: Your Medications New Medications [...] For any problems or questions please call [phone] ZELDA Smith, distillery miller Nurse Clinician For issues on weeknights after 5pm and weekends please call [phone] and ask for the Vascular Fellow national sales executive. General Instructions None Future Appointments and Orders Future Appointments Provider Department Dept Phone 08/26/2017 4:00 PM Aurelia Rivera PA Vascular Surgery at [place] [phone] 09/07/2017 3:00 PM LAB, THREE L Lab 3L [facility] [phone] 09/07/2017 4:00 PM Luz Prescott MD Endocrinology at [place] [phone] 09/09/2017 8:00 AM Barbra Soares APRN Pain Management [facility] [place] [phone] Please bring a list of your current [...] For any problems or questions please call [phone] ZELDA Smith, distillery miller Nurse Clinician For issues on weeknights after 5pm and weekends please call [phone] and ask for the Vascular Fellow national sales executive. documented in this encounter Medications at Time [...] of Care Management Discharge Note Patient Destination: [facility] ([facility]) [address] [place] [address] Transportation: with (at bedside) Time of Discharge: by 12 noon Level of Care: swing Patient Aware: yes Family Notified: yes Md to call report to: Yissel Quintero COAT JOINER LOCKSTITCH already called RN to call report to: [phone] Shirin Wolf Office of Care Management Pager [phone] Shirin Wagner RN - 08/16/2017 10:50 AM EST [facility] has offered pt swing bed. Pt and accept bed. will transport via car. COAT JOINER LOCKSTITCH Yissel Quintero aware; d/c paperwork will be completed by 12 noon. [facility] requests pt arrival by 1400 today; COAT JOINER LOCKSTITCH, RN, and family aware. COAT JOINER LOCKSTITCH called [facility] and was told that they prefer pt to arrive with wound vac dressing applied but clamped. COAT JOINER LOCKSTITCH applied new wound vac dressing. RN has [facility] number to call report. PASSR completed; COAT JOINER LOCKSTITCH paged to request provider signature in highlighted space. Indigo from [facility] notified via email that home wound vac now cancelled; [facility] has picked up from room and order cancelled. Packet started and provided to director community organization. Medicare important message explained to patient, patient signed. Copy provided to patient and signature page to OCM for inclusion in pt EMR. Radha Georges - 08/16/2017 10:34 AM EST Office of Care Management/Buhr Dresser Patient Name: Gregory Hoang : 1945 Patient has been offered a swing bed at [facility]. The patient will be transported by private transportation. No MD to MD report necessary Please call Nursing Report to [phone], ask for butter maker. Info to accompany patient: Narcotic Prescriptions Copies of Medication Administration Records and IV sheets for past 10 days. Plan: Buhr Dresser will be available to the patient and Tomato Pulper Operator-RN and/or Material Specialist for further assistance. Patient will be discharged to: [facility] [address] [place] [address] [id number] Radha Powers, Buhr Dresser Mira Black, VAMSI - 08/15/2017 10:05 PM EST [address] Flores to ask if he wanted to hold metoprolol dose. BP 95/58. OK to hold this dose Courtney Brito - 08/15/2017 3:26 PM EST Office of Care Management(OCM)/Buhr Dresser(RS)/ D/C Planning re : Patient is medically ready for d/c today. RS has been in contact with [facility] to see if they could offer a bed. [facility] is still reviewing the case and need their MD to review chart prior to accepting or declining. OCM team needs to check in with [place] tomorrow to check on status. 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 Vac in place. Rehab referrals ongoing. Can ambulate in hallway. Change VAC at bedside today. Naty Colindres RN - 08/14/2017 1:33 PM EST Patient Name: Gregory Hoang Patient Age: 72 y.o. Birthdate: 1945 Admit date: 08/06/2017 Attending Physician: Yonathan Smith MD We want him to go to a place for intensive therapy and not at a senior care where he will be just sitting there and not getting any therapy. . Contacted by direct care RN, who said that patient and would like information about patient's referral to: [facility] PHONE: [phone] FAX: [phone] CM spoke with RS who said that [...] would be accepted to acute rehab at [facility] as Dr. Smith had recommended . [...] rehab. Await recommendations from PT. Covering pager #[phone]. 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 Hearing Dog Trainer Kaitlin Saha, RN Pager #[phone] Payam Rosales - 08/13/2017 2:37 PM EST Dietary Aid Encounter Note Patient Name: Gregory Hoang : [id number] MR#: [id number] Admit Date: 08/06/2017 1:41 PM Hospital Day 7 days Narrative: Visited to introduce and assess acceptance of Dietary Aid services. Pt was awake, alert, oriented and in chair and family was there. Assessment:Patient coping positively with stresses of illness/hospitalization at this time. Pt says that he is hoping to get better and his family was there. Pt says that he has family care and supportand taking one day at time. Intervention and Outcome: Provided emotional support and encouraging presence. 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 A letter describing our affiliations was reviewed with them and theywere educated about their right to choose where referrals are placed. Patient requests referral to [facility] [employer] PHONE: [phone] FAX: [phone]. And Home NPWT (Negative Pressure Wound Therapy) aka wound vac device made available to pt. Serial # confirmed. Reviewed [facility] Proof of Delivery/Assignment of Benefits Statement(POD/AOB) Form w patient or authorized agent signing on behalf of patient. Copy of POD/AOB provided to pt and other copy faxed to [employer] @ fax# [phone] Expected date of discharge: 08/12/2017. 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 Address: [address] [place] [address] [place] [address] (home) Mobile: Telephone Information: Referring Provider: No [...] SETUP performed by Manny Mcknight MD at [facility] MAIN OR ??? PRO CABG, ARTERIAL, SINGLE N/A 07/07/2017 @CABG, USING ARTERIAL GRAFT;SINGLE ARTERIAL GRAFT (WRVU 33.75) performed by Yuan Retana MD at [facility] MAIN OR ??? PRO CABG, ARTERY-VEIN, TWO N/A 07/07/2017 @CABG, TWO VENOUS GRAFTS & ARTERIAL GRAFT (WRVU 7.93) performed by Yuan Retana MD at [facility] MAIN OR ??? PRO COLONOSCOPY, REMV LESN, SNARE 01/16/2014 COLONOSCOPY, POLYPECTOMY, REMOVAL LESION BY SNARE performed by Nohemi Jaimes MD at [facility] ENDOSCOPY ??? PRO ENDOSCOPY W/VIDEO-ASST VEIN HARVEST, CABG Right 07/07/2017 ENDOSCOPIC HARVEST VEIN(S) FOR CABG (WRVU 0.31) performed by Yuan Retana MD at [facility] MAIN OR ??? 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 Heparin gtt continues to run. Pt [...] post-op plan Viry Starkey MD 08/09/2017 Angela Holloawy RN - 08/09/2017 10:45 AM EST ANGIO NURSING DATABASE Name: GREGORY HOANG Date of : 1945 AGE 72 y.o. Address: [address] [place] [address] [place] [address] (home) Mobile: Telephone Information: Referring Provider: No [...] SETUP performed by Manny Mcknight MD at [facility] MAIN OR ??? PRO CABG, ARTERIAL, SINGLE N/A 07/07/2017 @CABG, USING ARTERIAL GRAFT;SINGLE ARTERIAL GRAFT (WRVU 33.75) performed by Yuan Retana MD at [facility] MAIN OR ??? PRO CABG, [...] 0.31) performed by Yuan Retana MD at [facility] MAIN OR ??? 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 Unsuccessful draw attempt, another country singer will come [facility] to collect blood for PTT test. 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 Continue pain control, IV antibiotics, and heparin infusion. Given that his disease appears to be diabetic, and tibial - pedal, OR tomorrow for angiogram. NPO at midnight tonight. Viry Starkey MD Vascular Surgery Melba Crzu RN - 08/08/2017 6:41 AM EST Per lab, pt blood glucose 229. Vascular resident national sales executive and will forward result to the team prior to rounds. 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 Patient [...] SETUP performed by Manny Mcknight MD at [facility] MAIN OR ??? PRO CABG, ARTERIAL, SINGLE N/A 07/07/2017 @CABG, USING ARTERIAL GRAFT;SINGLE ARTERIAL GRAFT (WRVU 33.75) performed by Yuan Retana MD at [facility] MAIN OR ??? PRO CABG, ARTERY-VEIN, TWO N/A 07/07/2017 @CABG, TWO VENOUS GRAFTS & ARTERIAL GRAFT (WRVU 7.93) performed by Yuan Retana MD at [facility] MAIN OR ??? PRO COLONOSCOPY, REMV LESN, SNARE 01/16/2014 COLONOSCOPY, POLYPECTOMY, REMOVAL LESION BY SNARE performed by Nohemi Jaimes MD at [facility] ENDOSCOPY ??? PRO ENDOSCOPY W/VIDEO-ASST VEIN HARVEST, CABG Right 07/07/2017 ENDOSCOPIC HARVEST VEIN(S) FOR CABG (WRVU 0.31) performed by Yuan Retana MD at [facility] MAIN OR ??? PRO THYROIDECTOMY 03/28/2013 THYROIDECTOMY, TOTAL OR COMPLETE performed by Manny Mcknight MD at [facility] MAIN OR Functional Status/Social Hx: Quit [...] left blue toes with CTA showing R HAND BOOTMAKER pseudoaneurysm (now thrombosed) and occluded ATs bilaterally. [...] 2.5x80 5. Completion RLE angiogram 6. L HAND BOOTMAKER angiogram 7. 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 - L HAND BOOTMAKER angriogram demonstrated: High femoral bifurcation over the proximal half of the femoral head. L HAND BOOTMAKER access in the distal L HAND BOOTMAKER. - Closure device: Mynx Technical Procedure: The [...] for a 45cm 5F Destination. V18 and [place] and QuickCross catheters were used to select [...] 5F. A stationed picture of the L HAND BOOTMAKER was performed as the patient was noted to have a very high bifurcation. Access appeared in the distal R HAND BOOTMAKER. Closure and sheath removal was performed with [...] PM EST 1440 report called to 5 valley head nurse Tessa AGUSTIN documented in this encounter Miscellaneous Notes Plan of Care - Dory Truong RN - 08/16/2017 10:51 AM EST Problem: Patient Care Overview Goal: Plan of Care Review Outcome: Outcome (s) achieved Date Met: 08/16/17 08/14/17 1939 08/16/17 0181 Coping/Psychosocial Plan Of Care Reviewed With -- patient Plan of Care Review Progress improving -- Discussed discharge instructions with pt and pt's spouse. Discharge to [facility]. Goal: Individualization & Mutuality Outcome: Outcome (s) [...] sit/sit to supine -- Bed Mobility Goal, Dundy Level independent -- Bed Mobility Goal, Date [...] days -- Transfer Training Goal, Activity Type fxm-hb-mzepj/qzgji-lb-bgl -- Transfer Train Goal, Dundy Level conditional independence -- Transfer Train Goal, [...] call cabello within reach, Hourly rounding by RN/INCREMENT MANAGER. Bed alarm / Chair alarm. Patient-specific [...] Smith MD - 08/15/2017 6:28 PM EST [facility] Operative Note Patient Name: Gregory Hoang : [id number] MR#: [id number] Case Date: 08/09/2017 Surgeon: Surgeon(s) and Role: [...] 2.5x80 5. Completion RLE angiogram 6. L HAND BOOTMAKER angiogram 7. Mynx closure Precautions/Restrictions: fall, sternal [...] feet/ bed -> bathroom). Anticipated Discharge Disposition: retirement facility, other (see comments) (or swing bed) Pager: [phone] BASSAM ELIAS, PT 08/14/2017 Inpatient Physical Therapy [...] to Achieve by discharge Gait Training Goal, Dundy Level conditional independence;set up required Gait Training [...] facilities over the weekend except for [facility]. CM spoke with [facility] KANWAL Sandhu RN who said that they do not anticipate any beds over the weekend. Reviewed with patient/ that they need to be aware that patient will need to take the first bed offered at the facilities that they make referrals to. Their choices are: 1- [facility] PHONE: [phone] FAX: [phone] 2- [facility] ([facility]) [address] [place] [address] 3- [facility]) [address] [place] [address] I have discussed Medicare/Private Insurance [...] RS/CM on Wednesday to follow-up. Covering pager #[phone] for today. Plan of Care - Henrique [...] with additional findings of pseudoaneurysm on R HAND BOOTMAKER and bilateral anterior tibial artery occlusions. Was [...] an outpatient once discharged. Have patient call [phone] to set up an appointment. Follow-up: Dermatology will sign-off for now. Please do not hesitate to contact us if you have any questions orconcerns. Impression and Recommendations discussed with primary team on 08/13/2017. Karo Henderson MD Resident in Dermatology Section of Dermatology, Department of Surgery [facility] Pager [phone] Patient seen and evaluated with staff Immersion Metal Cleaner: Halima Cordero MD Section of Dermatology [facility] Level of Resident Supervision: Direct [...] 2.5x80 5. Completion RLE angiogram 6. L HAND BOOTMAKER angiogram 7. Mynx closure Active Non-Hospital Problems [...] home with home health ([facility] PT&OT) Pager: [phone] YASIR TELLO OT 08/12/2017 Occupational Therapy Rehabilitation [...] 2.5x80 5. Completion RLE angiogram 6. L HAND BOOTMAKER angiogram 7. Mynx closure Past Medical History: [...] with 24/7 assistance and maximal services) Pager: [phone] NICHOLAS MORA, JESSIE 08/12/2017 Physical Therapy Rehabilitation [...] sit/sit to supine -- Bed Mobility Goal, Dundy Level independent -- Bed Mobility Goal, Outcome Achieved -- goal ongoing Goal: Gait Training Goal Stand Alone Therapy Goal Outcome: Ongoing (Interventions Implemented as Appropriate) 08/11/17 1310 08/12/17 1510 Gait Training Goal Gait Training Goal, Date Established 08/11/17 -- Gait Training Goal, Time to Achieve 5 - 7 days -- Gait Training Goal, Dundy Level conditional independence -- Gait Training Goal, [...] days -- Transfer Training Goal, Activity Type zqi-en-lbwzd/sknya-ll-vsb -- Transfer Train Goal, Dundy Level conditional independence -- Transfer Training Goal, [...] Smith MD - 08/11/2017 2:52 PM EST [facility] Operative Note Patient Name: Gregory Hoang : [id number] MR#: [id number] Case Date: 08/11/2017 Surgeon: Surgeon(s) and Role: [...] 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 Completion RLE angiogram 6. L HAND BOOTMAKER angiogram 7. Mynx closure He is very [...] Anticipated Discharge Disposition: inpatient rehabilitation facility Pager: [phone] LAWRENCE GONZALEZ, PT 08/11/2017 Physical Therapy Rehabilitation [...] to sit/sit to supine Bed Mobility Goal, Dundy Level independent Goal: Gait Training Goal Stand Alone Therapy Goal Outcome: Ongoing (Interventions Implemented as Appropriate) 08/11/17 1310 Gait Training Goal Gait Training Goal, Date Established 08/11/17 Gait Training Goal, Time to Achieve 5 - 7 days Gait Training Goal, Dundy Level conditional independence Gait Training Goal, Assist [...] 7 days Transfer Training Goal, Activity Type wxp-cr-pdrnc/wtnph-yi-zqs Transfer Train Goal, Dundy Level conditional independence Plan of Care - [...] call cabello within reach, Hourly rounding by RN/INCREMENT MANAGER. Bed alarm / Chair alarm. ? [...] Past 30 Days: [facility] 07/20/2017 Anticipated Length Of Stay (If known): Expected Length of Hospitalization: 5-7 days2-3 days Current Decision-Making Capacity: Alert and oriented x 4 Advance Care Planning: on file Kisha Honag [facility] [phone] Current Coping/Education/Information Needs: pt and spouse state [...] Health/Prescription Coverage: Primary Insurance: MEDICARE Secondary Insurance: [employer] [place] Prescription Coverage: See above Preferred Pharmacy: [facility] Other: N/A Primary Care Provider: Lovely Vciente MD [phone] Patient/Caregiver Goals of Treatment: Patient plans to [...] of care planning. Kaitlin Saha RN Pager: [phone] Plan of Care - Melba Jaramillo RN [...] Overview Goal: Plan of Care Review 08/08/17 4034 Coping/Psychosocial Plan Of Care Reviewed With patient [...] call cabello within reach, Hourly rounding by RN/INCREMENT MANAGER. Bed alarm / Chair alarm. Patient-specific [...] at bedside and MD TEAM Carrying pager [phone] contacted (via Radio page) and notified of [...] Visit Cardiology Vitaliy Nobles MD [facility] CARDIOLOGY [place], [place] [address] (Wo rk) documented as of [...] TYPE AND SCREEN Routine 08/09/2017 1:10 AM ([facility]/CGP/SHANDA) EST BASIC METABOLIC PANEL Routine 08/09/2017 1:10 [...] Signature POC Glucose 160 65 - 199 [facility] mg/dL [facility] Comment: Supplemental ranges: <140 mg/dL before meals <180 mg/dL all other times of the day Specimen Anatomical Collection Method Collection Time Receive d Time (Source) Location / / Volume Laterality Blood specimen 08/16/2017 7:28 AM 018 7:28 (specimen) EST AM EST Yonathan Smith MD POINT OF CARE TEST ORDERABLE S Performing Organization Address City/State/[place] [address] (ABNORMAL) Differential, Automated (08/16/2017 5:08 AM EST) Patholo gist Method Time Signature Neutrophils % 73.9 % [facility] Neutr Abs (ANC) 5.37 1.70 - [facility] 6.10 [facility] x10(3)/[facility] LABORATORY Lymphocytes % 10.1 % [facility] Lymphocytes Abs 0.7 (L) 0.9 - 3.2 [facility] x10(3)/[facility] LABORATORY Monocytes % 10.1 % [facility] Monocyte Abs 0.7 0.3 - 0.9 [facility] x10(3)/[facility] LABORATORY Eosinophils % 5.1 % [facility] Eosinophils Abs 0.4 0.0 - 0.4 [facility] x10(3)/[facility] LABORATORY Basophils % 0.4 % [facility] Basophils Abs 0.0 0.0 - 0.1 [facility] x10(3)/[facility] LABORATORY Immature Gran % 0.40 % [facility] Comment: Immature granulocytes(IG's)percentage an d absolute count will include metamyelocytes, myelocytes, and promyelo cytes. Blood smears from CBCs yielding IG's will be scanned manually for concor dance. If this scan disagrees with the automated IG or if promyelocytes are not ed, a manual differential will be performed. Melisa Gran Abs 0.03 0.00 - 0.04 x10(3)/[facility] Specimen Anatomical Collection Method Collection Time Receive d Time (Source) Location / / Volume Laterality Blood specimen 08/16/2017 5:08 AM 018 5:20 (specimen) EST AM EST Resulting Agency Comment Spec In Lab Yonathan Smith MD HEMATOLOGY ORDERABLES Performing Organization Address City/State/[place] [address] (ABNORMAL) Hemogram (08/16/2017 5:08 AM EST) Analysis Performed At Patho logist Time Signature WBC 7.3 4.0 - 9.5 [facility] x10(3)/[facility] LABORATORY RBC 3.36 (L) 4.58 - [facility] 5.54 [facility] x10(6)/[facility] LABORATORY Hemoglobin 9.7 (L) 13.7 - [facility] 16.5 gm/dL [facility] Hematocrit 30.3 (L) 40.5 - [facility] 48.5 % [facility] MCV 90.2 82.9 - BARBARA DAVIS 93.1 [facility] LABORATORY MCH 28.9 27.5 - BARBARA RYAN 32.1 pg [facility] MCHC 32.0 32.0 - [facility] 35.7 gm/dL [facility] Platelets 282 145 - 357 [facility] x10(3)/[facility] LABORATORY RDWSD 53.9 (H) 36.0 - BARBARA RYAN 45.0 [facility] [facility] LABORATORY RDWCV 16.5 (H) 11.4 - [facility] RYAN 13.8 % [facility] LABORATORY MPV 9.0 7.6 - 12.9 [facility] LABORATORY nRBC % Auto 0.0 % [facility] LABORATORY nRBC Abs Auto 0.000 0.000 - [facility] x10(3)/[facility] LABORATORY Specimen Anatomical Collection Method Collection Time Receive d Time (Source) Location / / Volume Laterality Blood specimen 08/16/2017 5:08 AM 018 5:20 (specimen) EST AM EST Resulting Agency Comment Spec In Lab Yonathan Smith MD HEMATOLOGY ORDERABLES Performing Organization Address City/State/[place] [address] (ABNORMAL) Basic Metabolic Panel (non-fasting) (08/16/2017 5:08 AM EST) P athologist Signature Glucose Lvl 141 65 - 199 [facility] mg/dL [facility] LABORATORY Comment: Diabetes: >=200 mg/dL plus symp [...] estions. Chloride 99 98 - 107 mmol/L [facility] LABORATORY CO2 28 22 - 31 mmol/L [facility] LABORATORY Anion Gap 13 5 - 15 mmol/L [facility] LABORATORY Calcium 8.7 8.5 - 10.5 mg/dL [facility] LABORATORY Estimated GFR 57 (L) >=60 [facility] LABORATORY Comment: The reported eGFR should be multiplied b y 1.2 for patients. The MDRD is not an appropriate measure o f renal function for patients with body mass extremes or in patients with acute kidney failure. http://Viva Dengi/DHnkdep http://[employer]iva Deng[employer]/DHnkf Specimen Anatomical Collection Method Collection Time Receive d Time (Source) Location / / Volume Laterality Blood specimen 08/16/2017 5:08 AM 018 5:20 (specimen) EST AM EST Resulting Agency Comment Spec In Lab Yonathan Smith MD CHEMISTRY ORDERABLES Performing Organization Address City/[facility] [place] [address] (ABNORMAL) Prothrombin Time (08/16/2017 5:08 AM EST) athologist Signature PT 25.2 (H) 11.8 - 14.0 [facility] LABORATORY INR 2.3 (H) 0.9 - 1.1 [facility] LABORATORY Comment: An INR <2.0 [...] [facility]/[place] [address] POCT Glucose (08/16/2017 4:09 AM EST) athologist Signature POC Glucose 147 65 - 199 [place] mg/dL [facility] LABORATORY Comment: Supplemental ranges: <140 mg/dL before meals <180 mg/dL all other times of the day Specimen Anatomical Collection Method Collection Time Receive d Time (Source) Location / / Volume Laterality Blood specimen 08/16/2017 4:09 AM 018 4:09 (specimen) EST AM EST Yonathan Smith MD POINT OF CARE TEST ORDERABLE S Performing Organization Address City/State/ZIP Code Phon e Number [address] POCT Glucose (08/15/2017 11:56 PM EST) athologist Signature POC Glucose 176 65 - 199 [place] mg/dL [facility] LABORATORY Comment: Supplemental ranges: <140 mg/dL before meals <180 mg/dL all other times of the day Specimen Anatomical Collection Method Collection Time Receive d Time (Source) Location / / Volume Laterality Blood specimen 08/15/2017 11:56 8 (specimen) PM EST 11:56 PM EST Yonathan Smith MD POINT OF CARE TEST ORDERABLE S Performing Organization Address City/State/[place] [address] POCT Glucose (08/15/2017 8:05 PM EST) athologist Signature POC Glucose 136 65 - 199 [place] mg/dL [facility] LABORATORY Comment: Supplemental ranges: <140 mg/dL before meals <180 mg/dL all other times of the day Specimen Anatomical Collection Method Collection Time Receive d Time (Source) Location / / Volume Laterality Blood specimen 08/15/2017 8:05 PM 018 8:05 (specimen) EST PM EST Yonathan Smith MD POINT OF CARE TEST ORDERABLE S Performing Organization Address City/State/[place] [address] (ABNORMAL) POCT Glucose (08/15/2017 4:50 PM EST) athologist Signature POC Glucose 232 (H) 65 - 199 [facility]dL [facility] LABORATORY Comment: Supplemental ranges: <140 mg/dL before meals <180 mg/dL all other times of the day Specimen Anatomical Collection Method Collection Time Receive d Time (Source) Location / / Volume Laterality Blood specimen 08/15/2017 4:50 PM 018 4:50 (specimen) EST PM EST Yonathan Smith MD POINT OF CARE TEST ORDERABLE S Performing Organization Address City/State/ZIP Code Phon e Number [address] POCT Glucose (08/15/2017 12:04 PM EST) athologist Signature POC Glucose 135 65 - 199 [facility] mg/dL [facility] LABORATORY Comment: Supplemental ranges: <140 mg/dL before meals <180 mg/dL all other times of the day Specimen Anatomical Collection Method Collection Time Receive d Time (Source) Location / / Volume Laterality Blood specimen 08/15/2017 12:04 8 (specimen) PM EST 12:04 PM EST Yonathan Smith MD POINT OF CARE TEST ORDERABLE S Performing Organization Address City/State/[place] [address] POCT Glucose (08/15/2017 7:36 AM EST) athologist Signature POC Glucose 124 65 - 199 [facility] mg/dL [facility] LABORATORY Comment: Supplemental ranges: <140 mg/dL before meals <180 mg/dL all other times of the day Specimen Anatomical Collection Method Collection Time Receive d Time (Source) Location / / Volume Laterality Blood specimen 08/15/2017 7:36 AM 018 7:36 (specimen) EST AM EST Yonathan Smith MD POINT OF CARE TEST ORDERABLE S Performing Organization Address City/State/[place] [address] (ABNORMAL) Differential, Automated (08/15/2017 6:22 AM EST) Patholo gist Method Time Signature Neutrophils % 76.1 % [facility] LABORATORY Neutr Abs (ANC) 6.62 (H) 1.70 - [facility] 6.10 [facility] x10(3)/[facility] L LABORATORY Lymphocytes % 9.3 % [facility] LABORATORY Lymphocytes Abs 0.8 (L) 0.9 - 3.2 [facility] x10(3)/[facility] LABORATORY Monocytes % 9.4 % [facility] LABORATORY Monocyte Abs 0.8 0.3 - 0.9 [facility] x10(3)/[facility] LABORATORY Eosinophils % 4.0 % [facility] LABORATORY Eosinophils Abs 0.4 0.0 - 0.4 [facility] x10(3)/[facility] LABORATORY Basophils % 0.6 % [facility] LABORATORY Basophils Abs 0.0 0.0 - 0.1 [facility] x10(3)/[facility] LABORATORY Immature Gran % 0.60 % [facility] LABORATORY Comment: Immature granulocytes(IG's)percentage an d absolute count will include metamyelocytes, myelocytes, and promyelo cytes. Blood smears from CBCs yielding IG's will be scanned manually for concor dance. If this scan disagrees with the automated IG or if promyelocytes are not ed, a manual differential will be performed. Melisa Gran Abs 0.05 (H) 0.00 - 0.04 x10(3)/[facility] LABORATORY Specimen Anatomical Collection Method Collection Time Receive d Time (Source) Location / / Volume Laterality Blood specimen 08/15/2017 6:22 AM 018 6:33 (specimen) EST AM EST Resulting Agency Comment Spec In Lab Yonathan Smith MD HEMATOLOGY ORDERABLES Performing Organization Address City/State/[place] [address] (ABNORMAL) Hemogram (08/15/2017 6:22 AM EST) Analysis Performed At Patho logist Time Signature WBC 8.7 4.0 - 9.5 [place] 619120(3)/[facility] LABORATORY RBC 3.21 (L) 4.58 - [place] 5.54 [facility] x10(6)/[facility] LABORATORY Hemoglobin 9.1 (L) 13.7 - [facility]/dL [facility] LABORATORY Hematocrit 29.0 (L) 40.5 - [place] RYAN 48.5 % [facility] LABORATORY MCV 90.3 82.9 - [facility] 93.1 [facility] LABORATORY MCH 28.3 27.5 - [place]AN 32.1 pg [facility] LABORATORY MCHC 31.4 (L) 32.0 - [facility] 35.7 gm/dL [facility] LABORATORY Platelets 254 145 - 357 [facility] x10(3)/[facility] LABORATORY RDWSD 53.9 (H) 36.0 - [facility] 45.0 [facility] LABORATORY RDWCV 16.3 (H) 11.4 - [facility] 13.8 % [facility] LABORATORY MPV 8.8 7.6 - 12.9 [facility] LABORATORY nRBC % Auto 0.0 % [facility] LABORATORY nRBC Abs Auto 0.000 0.000 - [facility] 0.000 [facility] x10(3)/[facility] LABORATORY Specimen Anatomical Collection Method Collection Time Receive d Time (Source) Location / / Volume Laterality Blood specimen 08/15/2017 6:22 AM 018 6:33 (specimen) EST AM EST Resulting Agency Comment Spec In Lab Yonathan Smith MD HEMATOLOGY ORDERABLES Performing Organization Address City/State/[place] [address] (ABNORMAL) Basic Metabolic Panel (non-fasting) (08/15/2017 6:22 AM EST) athologist Signature Glucose Lvl 118 65 - 199 [facility] mg/dL [facility] LABORATORY Comment: Diabetes: >=200 mg/dL plus symp [...] estions. Chloride 98 98 - 107 mmol/L [facility] LABORATORY CO2 29 22 - 31 mmol/L [facility] LABORATORY Anion Gap 11 5 - 15 mmol/L [facility] LABORATORY Calcium 8.8 8.5 - 10.5 mg/dL [facility] LABORATORY Estimated GFR >60 >=60 [facility] LABORATORY Comment: The reported eGFR should be multiplied b y 1.2 for patients. The MDRD is not an appropriate measure o f renal function for patients with body mass extremes or in patients with acute kidney failure. http://V[employer]/DHnkdep http://[employer]/DHMCnkf Specimen Anatomical Collection Method Collection Time Receive d Time (Source) Location / / Volume Laterality Blood specimen 08/15/2017 6:22 AM 018 6:33 (specimen) EST AM EST Resulting Agency Comment Spec In Lab Yonathan Smith MD CHEMISTRY ORDERABLES Performing Organization Address City/State/[place] [address] (ABNORMAL) Prothrombin Time (08/15/2017 6:22 AM EST) P athologist Signature PT 21.9 (H) 11.8 - 14.0 [facility] LABORATORY INR 1.9 (H) 0.9 - 1.1 [facility] LABORATORY Comment: An INR <2.0 [...] Address City/State/ZIP Code Phon e Number [address] POCT Glucose (08/15/2017 4:33 AM EST) athologist Signature POC Glucose 164 65 - 199 [place] mg/dL [facility] LABORATORY Comment: Supplemental ranges: <140 mg/dL before meals <180 mg/dL all other times of the day Specimen Anatomical Collection Method Collection Time Receive d Time (Source) Location / / Volume Laterality Blood specimen 08/15/2017 4:33 AM 018 4:33 (specimen) EST AM EST Yonathan Smith MD POINT OF CARE TEST ORDERABLE S Performing Organization Address City/State/ZIP Code Phon e Number [address] POCT Glucose (08/15/2017 12:12 AM EST) athologist Signature POC Glucose 89 65 - 199 [place] mg/dL [facility] LABORATORY Comment: Supplemental ranges: <140 mg/dL before meals <180 mg/dL all other times of the day Specimen Anatomical Collection Method Collection Time Receive d Time (Source) Location / / Volume Laterality Blood specimen 08/15/2017 12:12 8 (specimen) AM EST 12:12 AM EST Yonathan Smith MD POINT OF CARE TEST ORDERABLE S Performing Organization Address City/State/ZIP Code Phon e Number [address] (ABNORMAL) POCT Glucose (08/14/2017 8:07 PM EST) athologist Signature POC Glucose 204 (H) 65 - 199 [place] mg/dL [facility] LABORATORY Comment: Supplemental ranges: <140 mg/dL before meals <180 mg/dL all other times of the day Specimen Anatomical Collection Method Collection Time Receive d Time (Source) Location / / Volume Laterality Blood specimen 08/14/2017 8:07 PM 018 8:07 (specimen) EST PM EST Yonathan Smith MD POINT OF CARE TEST ORDERABLE S Performing Organization Address City/State/ZIP Code Phon e Number [address] POCT Glucose (08/14/2017 5:11 PM EST) athologist Signature POC Glucose 174 65 - 199 [facility] mg/dL [facility] LABORATORY Comment: Supplemental ranges: <140 mg/dL before meals <180 mg/dL all other times of the day Specimen Anatomical Collection Method Collection Time Receive d Time (Source) Location / / Volume Laterality Blood specimen 08/14/2017 5:11 PM 018 5:11 (specimen) EST PM EST Yonathan Smith MD POINT OF CARE TEST ORDERABLE S Performing Organization Address City/State/ZIP Code Phon e Number [address] POCT Glucose (08/14/2017 12:10 PM EST) athologist Signature POC Glucose 141 65 - 199 [facility] mg/dL [facility] LABORATORY Comment: Supplemental ranges: <140 mg/dL before meals <180 mg/dL all other times of the day Specimen Anatomical Collection Method Collection Time Receive d Time (Source) Location / / Volume Laterality Blood specimen 08/14/2017 12:10 8 (specimen) PM EST 12:10 PM EST Yonathan Smith MD POINT OF CARE TEST ORDERABLE S Performing Organization Address City/State/ZIP Code Phon e Number [address] POCT Glucose (08/14/2017 8:07 AM EST) athologist Signature POC Glucose 158 65 - 199 [facility] mg/dL [facility] LABORATORY Comment: Supplemental ranges: <140 mg/dL before meals <180 mg/dL all other times of the day Specimen Anatomical Collection Method Collection Time Receive d Time (Source) Location / / Volume Laterality Blood specimen 08/14/2017 8:07 AM 018 8:07 (specimen) EST AM EST Yonathan Smith MD POINT OF CARE TEST ORDERABLE S Performing Organization Address City/State/ZIP Code Phon e Number [facility] [place] [address] (ABNORMAL) Differential, Automated (08/14/2017 4:52 AM EST) [facility] Method Time Signature Neutrophils % 78.6 % [facility] LABORATORY Neutr Abs (ANC) 7.70 (H) 1.70 - [facility] 6.10 [facility] x10(3)/[facility] LABORATORY Lymphocytes % 7.8 % [facility] LABORATORY Lymphocytes Abs 0.8 (L) 0.9 - 3.2 [facility] x10(3)/[facility] LABORATORY Monocytes % 8.8 % [facility] LABORATORY Monocyte Abs 0.9 0.3 - 0.9 [facility] x10(3)/[facility] LABORATORY Eosinophils % 4.0 % [facility] LABORATORY Eosinophils Abs 0.4 0.0 - 0.4 [facility] x10(3)/[facility] LABORATORY Basophils % 0.5 % [facility] LABORATORY Basophils Abs 0.0 0.0 - 0.1 [facility] x10(3)[facility] LABORATORY Immature Gran % 0.30 % [facility] LABORATORY Comment: Immature granulocytes(IG's)percentage an d absolute count will include metamyelocytes, myelocytes, and promyelo cytes. Blood smears from CBCs yielding IG's will be scanned manually for concor dance. If this scan disagrees with the automated IG or if promyelocytes are not ed, a manual differential will be performed. Melisa Gran Abs 0.03 0.00 - 0.04 x10(3)/[facility] LABORATORY Specimen Anatomical Collection Method Collection Time Receive d Time (Source) Location / / Volume Laterality Blood specimen 08/14/2017 4:52 AM 018 5:08 (specimen) EST AM EST Resulting Agency Comment Spec In Lab Yonathan Smith MD HEMATOLOGY ORDERABLES Performing Organization Address City/State/[place] [address] (ABNORMAL) Hemogram (08/14/2017 4:52 AM EST) Analysis Performed At Patho logist Time Signature WBC 9.8 (H) 4.0 - 9.5 [facility] x10(3)/[facility] LABORATORY RBC 3.32 (L) 4.58 - [place] 5.54 [facility] x10(6)/[facility] LABORATORY Hemoglobin 9.5 (L) 13.7 - [facility] 16.5 gm/dL [facility] LABORATORY Hematocrit 30.3 (L) 40.5 - [facility] 48.5 % [facility] LABORATORY MCV 91.3 82.9 - [facility] 93.1 [facility] LABORATORY MCH 28.6 27.5 - [place] R[place] 32.1 pg [facility] LABORATORY MCHC 31.4 (L) 32.0 - [place] R[facility] 35.7 gm/dL [facility] LABORATORY Platelets 263 145 - 357 [facility] x10(3)/[facility] LABORATORY RDWSD 54.8 (H) 36.0 - [facility] 45.0 [facility] LABORATORY RDWCV 16.5 (H) 11.4 - [facility] 13.8 % [facility] LABORATORY MPV 9.1 7.6 - 12.9 [facility] nRBC % Auto 0.0 % [facility] LABORATORY nRBC Abs Auto 0.000 0.000 - [place] RY[place] 0.000 [facility] x10(3)/[facility] LABORATORY Specimen Anatomical Collection Method Collection Time Receive d Time (Source) Location / / Volume Laterality Blood specimen 08/14/2017 4:52 AM 018 5:08 (specimen) EST AM EST Resulting Agency Comment Spec In Lab Yonathan Smith MD HEMATOLOGY ORDERABLES Performing Organization Address City/State/[place] [address] (ABNORMAL) Prothrombin Time (08/14/2017 4:52 AM EST) P athologist Signature PT 18.8 (H) 11.8 - 14.0 [facility] LABORATORY INR 1.6 (H) 0.9 - 1.1 [facility] LABORATORY Comment: An INR <2.0 [...] Organization Address City/State/ZIP Code Phon e Number [place] [id number] HOSP[address] LAB[address]ORY Drive (ABNORMAL) Basic Metabolic Panel (non-fasting) (08/14/2017 4:52 AM EST) athologist Signature Glucose Lvl 135 65 - 199 [facility] mg/dL [facility] LABORATORY Comment: Diabetes: >=200 mg/dL plus symp toms BUN 25 (H) 10 - 20 mg/dL [facility] LABORATORY Creatinine 1.36 0.80 - 1.50 mg/dL [facility] LABORATORY Sodium 141 135 - 145 mmol/L [facility] estions. Chloride 100 98 - 107 mmol/L [facility] LABORATORY CO2 28 22 - 31 mmol/L [facility] LABORATORY Anion Gap 13 5 - 15 mmol/L [facility] LABORATORY Calcium 8.5 8.5 - 10.5 mg/dL [facility] LABORATORY Estimated GFR 52 (L) >=60 [facility] LABORATORY Comment: The reported eGFR should be multiplied b y 1.2 for patients. The MDRD is not an appropriate measure o f renal function for patients with body mass extremes or in patients with acute kidney failure. http://Viva Dengi/DHnkdep http://[employer]iva D[employer]/DHMCnkf Specimen Anatomical Collection Method Collection Time Receive d Time (Source) Location / / Volume Laterality Blood specimen 08/14/2017 4:52 AM 018 5:08 (specimen) EST AM EST Resulting Agency Comment Spec In Lab Yonathan Smith MD CHEMISTRY ORDERABLES Performing Organization Address City/[facility]/ZIP [facility] e [address] POCT Glucose (08/14/2017 3:56 AM EST) athologist Signature POC Glucose 135 65 - 199 [facility] LABORATORY Comment: Supplemental ranges: <140 mg/dL before meals <180 mg/dL all other times of the day Specimen Anatomical Collection Method Collection Time Receive d Time (Source) Location / / Volume Laterality Blood specimen 08/14/2017 3:56 AM 018 3:56 (specimen) EST AM EST Yonathan Smith MD POINT OF CARE TEST ORDERABLE S Performing Organization Address City/[facility]/ZIP [facility] [place] [address] POCT Glucose (08/13/2017 11:13 PM EST) athologist Signature POC Glucose 118 65 - 199 [facility] mg/dL [facility] LABORATORY Comment: Supplemental ranges: <140 mg/dL before meals <180 mg/dL all other times of the day Specimen Anatomical Collection Method Collection Time Receive d Time (Source) Location / / Volume Laterality Blood specimen 08/13/2017 11:13 8 (specimen) PM EST 11:13 PM EST Yonathan Smith MD POINT OF CARE TEST ORDERABLE S Performing Organization Address City/State/[place] [address] (ABNORMAL) POCT Glucose (08/13/2017 8:08 PM EST) athologist Signature POC Glucose 204 (H) 65 - 199 [place] ZHAORYAN mg/dL [facility] LABORATORY Comment: Supplemental ranges: <140 mg/dL before meals <180 mg/dL all other times of the day Specimen Anatomical Collection Method Collection Time Receive d Time (Source) Location / / Volume Laterality Blood specimen 08/13/2017 8:08 PM 018 8:08 (specimen) EST PM EST Yonathan Smith MD POINT OF CARE TEST ORDERABLE S Performing Organization Address City/[facility]/[place] [address] POCT Glucose (08/13/2017 4:02 PM EST) athologist Signature POC Glucose 145 65 - 199 [place] ZHAORYAN mg/dL [facility] LABORATORY Comment: Supplemental ranges: <140 mg/dL before meals <180 mg/dL all other times of the day Specimen Anatomical Collection Method Collection Time Receive d Time (Source) Location / / Volume Laterality Blood specimen 08/13/2017 4:02 PM 018 4:02 (specimen) EST PM EST Yonathan Smith MD POINT OF CARE TEST ORDERABLE S Performing Organization Address City/State/[place] [address] POCT Glucose (08/13/2017 11:31 AM EST) athologist Signature POC Glucose 179 65 - 199 [place] ZHAORYAN mg/dL [facility] LABORATORY Comment: Supplemental ranges: <140 mg/dL before meals <180 mg/dL all other times of the day Specimen Anatomical Collection Method Collection Time Receive d Time (Source) Location / / Volume Laterality Blood specimen 08/13/2017 11:31 8 (specimen) AM EST 11:31 AM EST Yonathan Smith MD POINT OF CARE TEST ORDERABLE S Performing Organization Address City/State/[place] [address] (ABNORMAL) POCT Glucose (08/13/2017 10:16 AM EST) P athologist Signature POC Glucose 211 (H) 65 - 199 BARBARA DAVIS mg/dL [facility] LABORATORY Comment: Supplemental ranges: <140 mg/dL before meals <180 mg/dL all other times of the day Specimen Anatomical Collection Method Collection Time Receive d Time (Source) Location / / Volume Laterality Blood specimen 08/13/2017 10:16 8 (specimen) AM EST 10:16 AM EST Yonathan Smith MD POINT OF CARE TEST ORDERABLE S Performing Organization Address City/State/[place] [address] JULIAN, legs, multiple levels (08/13/2017 7:42 AM EST) Component Value Ref Test Analysis Performed At Patholo gist Range Method Time Signature VB Text Department: Vascular Surgery Lab VASCUBASE Report Patient: [id number] (GREGORY HOANG) CPT: 92698 ICD10: I99.8 Referring Physician: YONATHAN SMITH ?? Indications: s/p R 1,2,3 toe amps with red left foot, need n ew baseline Diabetes mellitus: yes ICD10 Diagnosis Code: I99.8 Findings: Right ?Pressure (mm Hg) ?? JULIAN ??Waveform ?TBI ?? Brachial Artery ?138 ? Dorsalis Pedis (Ankle) Arter y ?132 ? 0.94 ??[place]- Biphasic ? Posterior Tibial (Ankle) Art anila ??154 ? 1.10 ??[place]-Biphasic ? Fourth Toe ? 67 ? 0.48 [...] Smith MD VASCULAR ORDERABLES Performing Organization Address City/[facility]/ZIP Code Phon e Number VASCUBASE POCT Glucose (08/13/2017 7:33 AM EST) P athologist Signature POC Glucose 156 65 - 199 [facility] mg/dL [facility] Comment: Supplemental ranges: <140 mg/dL before meals <180 mg/dL all other times of the day Specimen Anatomical Collection Method Collection Time Receive d Time (Source) Location / / Volume Laterality Blood specimen 08/13/2017 7:33 AM 018 7:33 (specimen) EST AM EST Yonathan Smith MD POINT OF CARE TEST ORDERABLE S Performing Organization Address City/[facility]/ZIP [facility] [place] [address] (ABNORMAL) Differential, Automated (08/13/2017 5:33 AM EST) Patholo gist Method Time Signature Neutrophils % 77.8 % [facility] Neutr Abs (ANC) 7.83 (H) 1.70 - [facility] 6.10 [facility] x10(3)/[facility] L LABORATORY Lymphocytes % 8.4 % [facility] Lymphocytes Abs 0.8 (L) 0.9 - 3.2 [facility] x10(3)/[facility] LABORATORY Monocytes % 8.3 % [facility] Monocyte Abs 0.8 0.3 - 0.9 [facility] x10(3)/[facility] LABORATORY Eosinophils % 4.6 % [facility] Eosinophils Abs 0.5 (H) 0.0 - 0.4 [facility] x10(3)/[facility] LABORATORY Basophils % 0.5 % [facility] Basophils Abs 0.0 0.0 - 0.1 [facility] x10(3)/[facility] LABORATORY Immature Gran % 0.40 % [facility] Comment: Immature granulocytes(IG's)percentage an d absolute count will include metamyelocytes, myelocytes, and promyelo cytes. Blood smears from CBCs yielding IG's will be scanned manually for concor dance. If this scan disagrees with the automated IG or if promyelocytes are not ed, a manual differential will be performed. Melisa Gran Abs 0.04 0.00 - 0.04 x10(3)/[facility] LABORATORY Specimen Anatomical Collection Method Collection Time Receive d Time (Source) Location / / Volume Laterality Blood specimen 08/13/2017 5:33 AM 018 6:04 (specimen) EST AM EST Resulting Agency Comment Spec In Lab Yonathan Smith MD HEMATOLOGY ORDERABLES Performing Organization Address City/State/[place] [address] (ABNORMAL) Hemogram (08/13/2017 5:33 AM EST) Analysis Performed At Patho logist Time Signature WBC 10.1 (H) 4.0 - 9.5 [facility] x10(3)/[facility] LABORATORY RBC 3.21 (L) 4.58 - [facility] x10(6)/[facility] LABORATORY Hemoglobin 9.2 (L) 13.7 - [facility] 16.[facility] gm/dL [facility] Hematocrit 29.6 (L) 40.5 - [facility] 48.5 % [facility] MCV 92.2 82.9 - [facility]1 [facility] LABORATORY MCH 28.7 27.5 - [facility] 32.1 pg [facility] MCHC 31.1 (L) 32.0 - [facility] 35.7 gm/dL [facility] Platelets 263 145 - 357 [facility] x10(3)/[facility] LABORATORY RDWSD 54.8 (H) 36.0 - [facility] 45.0 [facility] LABORATORY RDWCV 16.4 (H) 11.4 - [facility] 13.8 % [facility] MPV 9.2 7.6 - 12.9 [facility] LABORATORY nRBC % Auto 0.0 % [facility] nRBC Abs Auto 0.000 0.000 - [place] 0.000 [facility] x10(3)/[facility] LABORATORY Specimen Anatomical Collection Method Collection Time Receive d Time (Source) Location / / Volume Laterality Blood specimen 08/13/2017 5:33 AM 018 6:04 (specimen) EST AM EST Resulting Agency Comment Spec In Lab Yonathan Smith MD HEMATOLOGY ORDERABLES Performing Organization Address City/State/[place] [address] (ABNORMAL) Prothrombin Time (08/13/2017 5:33 AM EST) P athologist Signature PT 17.3 (H) 11.8 - 14.0 [facility] LABORATORY INR 1.4 (H) 0.9 - 1.1 [facility] Comment: An INR <2.0 [...] Organization Address City/State/[place] [address] (ABNORMAL) Basic Metabolic Panel (non-fasting) (08/13/2017 5:33 AM EST) athologist Signature Glucose Lvl 126 65 - 199 [facility] mg/dL [facility] Comment: Diabetes: >=200 mg/dL plus symp toms BUN 18 10 - 20 mg/dL [facility] Creatinine 1.16 0.80 - 1.50 mg/dL [facility] Sodium 141 135 - 145 mmol/L [facility] [...] estions. Chloride 100 98 - 107 mmol/L [facility] CO2 29 22 - 31 mmol/L [facility] Anion Gap 12 5 - 15 mmol/L [facility] Calcium 7.9 (L) 8.5 - 10.5 mg/dL [facility] Estimated GFR >60 >=60 [facility] Comment: The reported eGFR should be multiplied b y 1.2 for patients. The MDRD is not an appropriate measure o f renal function for patients with body mass extremes or in patients with acute kidney failure. http://[employer]/DHnkdep http://[employer]/DHMCnkf Specimen Anatomical Collection Method Collection Time Receive d Time (Source) Location / / Volume Laterality Blood specimen 08/13/2017 5:33 AM 018 6:04 (specimen) EST AM EST Resulting Agency Comment Spec In Lab Yonathan Smith MD CHEMISTRY ORDERABLES Performing Organization Address City/State/[place] [address] POCT Glucose (08/13/2017 4:29 AM EST) athologist Signature POC Glucose 111 65 - 199 [facility] mg/dL [facility] Comment: Supplemental ranges: <140 mg/dL before meals <180 mg/dL all other times of the day Specimen Anatomical Collection Method Collection Time Receive d Time (Source) Location / / Volume Laterality Blood specimen 08/13/2017 4:29 AM 018 4:29 (specimen) EST AM EST Yonathan Smith MD POINT OF CARE TEST ORDERABLE S Performing Organization Address City/State/[place] [address] POCT Glucose (08/12/2017 11:28 PM EST) athologist Signature POC Glucose 164 65 - 199 [facility] Comment: Supplemental ranges: <140 mg/dL before meals <180 mg/dL all other times of the day Specimen Anatomical Collection Method Collection Time Receive d Time (Source) Location / / Volume Laterality Blood specimen 08/12/2017 11:28 8 (specimen) PM EST 11:28 PM EST Yonathan Smith MD POINT OF CARE TEST ORDERABLE S Performing Organization Address City/State/[place] [address] (ABNORMAL) POCT Glucose (08/12/2017 7:40 PM EST) athologist Signature POC Glucose 209 (H) 65 - 199 [facility] mg/dL [facility] Comment: Supplemental ranges: <140 mg/dL before meals <180 mg/dL all other times of the day Specimen Anatomical Collection Method Collection Time Receive d Time (Source) Location / / Volume Laterality Blood specimen 08/12/2017 7:40 PM 018 7:40 (specimen) EST PM EST Yonathan Smith MD POINT OF CARE TEST ORDERABLE S Performing Organization Address City/State/[place] [address] POCT Glucose (08/12/2017 4:24 PM EST) athologist Signature POC Glucose 161 65 - 199 [facility] mg/dL [facility] Comment: Supplemental ranges: <140 mg/dL before meals <180 mg/dL all other times of the day Specimen Anatomical Collection Method Collection Time Receive d Time (Source) Location / / Volume Laterality Blood specimen 08/12/2017 4:24 PM 018 4:24 (specimen) EST PM EST Yonathan Smith MD POINT OF CARE TEST ORDERABLE S Performing Organization Address City/State/ZIP Code Phon e Number [address] POCT Glucose (08/12/2017 12:00 PM EST) athologist Signature POC Glucose 167 65 - 199 [facility] mg/dL [facility] Comment: Supplemental ranges: <140 mg/dL before meals <180 mg/dL all other times of the day Specimen Anatomical Collection Method Collection Time Receive d Time (Source) Location / / Volume Laterality Blood specimen 08/12/2017 12:00 8 (specimen) PM EST 12:00 PM EST Yonathan Smith MD POINT OF CARE TEST ORDERABLE S Performing Organization Address City/State/ZIP Code Phon e Number [address] POCT Glucose (08/12/2017 7:25 AM EST) athologist Signature POC Glucose 152 65 - 199 [facility] mg/dL [facility] Comment: Supplemental ranges: <140 mg/dL before meals <180 mg/dL all other times of the day Specimen Anatomical Collection Method Collection Time Receive d Time (Source) Location / / Volume Laterality Blood specimen 08/12/2017 7:25 AM 018 7:25 (specimen) EST AM EST Yonathan Smith MD POINT OF CARE TEST ORDERABLE S Performing Organization Address City/State/[place] [address] (ABNORMAL) Differential, Automated (08/12/2017 6:29 AM EST) Patholo gist Method Time Signature Neutrophils % 78.7 % [facility] Neutr Abs (ANC) 7.94 (H) 1.70 - [facility] 6.10 [facility] x10(3)/[facility] LABORATORY Lymphocytes % 8.8 % [facility] Lymphocytes Abs 0.9 0.9 - 3.2 [facility] x10(3)/[facility] LABORATORY Monocytes % 7.8 % [facility] Monocyte Abs 0.8 0.3 - 0.9 [facility] x10(3)/[facility] LABORATORY Eosinophils % 3.9 % [facility] Eosinophils Abs 0.4 0.0 - 0.4 [facility] x10(3)/[facility] LABORATORY Basophils % 0.3 % [facility] Basophils Abs 0.0 0.0 - 0.1 [facility] x10(3)/[facility] LABORATORY Immature Gran % 0.50 % [facility] Comment: Immature granulocytes(IG's)percentage an d absolute count will include metamyelocytes, myelocytes, and promyelo cytes. Blood smears from CBCs yielding IG's will be scanned manually for concor dance. If this scan disagrees with the automated IG or if promyelocytes are not ed, a manual differential will be performed. Melisa Gran Abs 0.05 (H) 0.00 - 0.04 x10(3)/[facility] LABORATORY Specimen Anatomical Collection Method Collection Time Receive d Time (Source) Location / / Volume Laterality Blood specimen 08/12/2017 6:29 AM 018 6:38 (specimen) EST AM EST Resulting Agency Comment Spec In Lab Yonathan Smith MD HEMATOLOGY ORDERABLES Performing Organization Address City/State/[place] [address] (ABNORMAL) Hemogram (08/12/2017 6:29 AM EST) Analysis Performed At Patho logist Time Signature WBC 10.1 (H) 4.0 - 9.5 [facility] x10(3)/[facility] LABORATORY RBC 3.02 (L) 4.58 - [facility] 5.54 [facility] x10(6)/[facility] LABORATORY Hemoglobin 8.7 (L) 13.7 - [facility] 16.5 gm/dL [facility] Hematocrit 28.1 (L) 40.5 - [facility] 48.5 % [facility] MCV 93.0 82.9 - [facility] 93.1 [facility] LABORATORY MCH 28.8 27.5 - [place] 32.1 pg [facility] MCHC 31.0 (L) 32.0 - [facility] 35.7 gm/dL [facility] Platelets 223 145 - 357 [facility] x10(3)/[facility] LABORATORY RDWSD 56.1 (H) 36.0 - [place] 45.0 [facility] LABORATORY RDWCV 16.4 (H) 11.4 - [facility] 13.8 % [facility] MPV 9.0 7.6 - 12.9 [facility] LABORATORY nRBC % Auto 0.0 % [facility] nRBC Abs Auto 0.000 0.000 - [facility] 0.000 [facility] x10(3)/[facility] LABORATORY Specimen Anatomical Collection Method Collection Time Receive d Time (Source) Location / / Volume Laterality Blood specimen 08/12/2017 6:29 AM 018 6:38 (specimen) EST AM EST Resulting Agency Comment Spec In Lab Yonathan Smith MD HEMATOLOGY ORDERABLES Performing Organization Address City/State/[place] [address] (ABNORMAL) Prothrombin Time (08/12/2017 6:29 AM EST) P athologist Signature PT 16.1 (H) 11.8 - 14.0 [facility] LABORATORY INR 1.3 (H) 0.9 - 1.1 [facility] Comment: An INR <2.0 [...] Organization Address City/State/[place] [address] (ABNORMAL) Basic Metabolic Panel (non-fasting) (08/12/2017 6:29 AM EST) athologist Signature Glucose Lvl 151 65 - 199 [facility] mg/dL [facility] Comment: Diabetes: >=200 mg/dL plus symp [...] estions. Chloride 99 98 - 107 mmol/L [facility] CO2 28 22 - 31 mmol/L [facility] Anion Gap 11 5 - 15 mmol/L [facility] Calcium 7.9 (L) 8.5 - 10.5 mg/dL [facility] LABORATORY Estimated GFR >60 >=60 [facility] Comment: The reported eGFR should be multiplied b y 1.2 for patients. The MDRD is not an appropriate measure o f renal function for patients with body mass extremes or in patients with acute kidney failure. http://BlueSn[employer]com/DHnkdep http://BlueSn[employer].com/DHMCnkf Specimen Anatomical Collection Method Collection Time Receive d Time (Source) Location / / Volume Laterality Blood specimen 08/12/2017 6:29 AM 018 6:38 (specimen) EST AM EST Resulting Agency Comment Spec In Lab Yonathan Smith MD CHEMISTRY ORDERABLES Performing Organization Address City/State/[place] [address] POCT Glucose (08/12/2017 4:08 AM EST) athologist Signature POC Glucose 181 65 - 199 [facility] mg/dL [facility] Comment: Supplemental ranges: <140 mg/dL before meals <180 mg/dL all other times of the day Specimen Anatomical Collection Method Collection Time Receive d Time (Source) Location / / Volume Laterality Blood specimen 08/12/2017 4:08 AM 018 4:08 (specimen) EST AM EST Yonathan Smith MD POINT OF CARE TEST ORDERABLE S Performing Organization Address City/State/[place] [address] (ABNORMAL) POCT Glucose (08/12/2017 12:17 AM EST) athologist Signature POC Glucose 221 (H) 65 - 199 [facility] mg/dL [facility] Comment: Supplemental ranges: <140 mg/dL before meals <180 mg/dL all other times of the day Specimen Anatomical Collection Method Collection Time Receive d Time (Source) Location / / Volume Laterality Blood specimen 08/12/2017 12:17 8 (specimen) AM EST 12:17 AM EST Yonathan Smith MD POINT OF CARE TEST ORDERABLE S Performing Organization Address City/State/ZIP Code Phon e Number [address] (ABNORMAL) POCT Glucose (08/11/2017 8:52 PM EST) athologist Signature POC Glucose 221 (H) 65 - 199 [facility] mg/dL [facility] Comment: Supplemental ranges: <140 mg/dL before meals <180 mg/dL all other times of the day Specimen Anatomical Collection Method Collection Time Receive d Time (Source) Location / / Volume Laterality Blood specimen 08/11/2017 8:52 PM 018 8:52 (specimen) EST PM EST Yonathan Smith MD POINT OF CARE TEST ORDERABLE S Performing Organization Address City/State/[place] [address] POCT Glucose (08/11/2017 5:59 PM EST) athologist Signature POC Glucose 169 65 - 199 [place] mg/dL [facility] Comment: Supplemental ranges: <140 mg/dL before meals <180 mg/dL all other times of the day Specimen Anatomical Collection Method Collection Time Receive d Time (Source) Location / / Volume Laterality Blood specimen 08/11/2017 5:59 PM 018 5:59 (specimen) EST PM EST Yonathan Smith MD POINT OF CARE TEST ORDERABLE S Performing Organization Address City/State/[place] [address] (ABNORMAL) POCT Glucose (08/11/2017 4:08 PM EST) athologist Signature POC Glucose 240 (H) 65 - 199 [facility] mg/dL [facility] Comment: Supplemental ranges: <140 mg/dL before meals <180 mg/dL all other times of the day Specimen Anatomical Collection Method Collection Time Receive d Time (Source) Location / / Volume Laterality Blood specimen 08/11/2017 4:08 PM 018 4:08 (specimen) EST PM EST Yonathan Smith MD POINT OF CARE TEST ORDERABLE S Performing Organization Address City/State/ZIP Code Phon e Number [address] POCT Glucose (08/11/2017 12:04 PM EST) athologist Signature POC Glucose 182 65 - 199 [place] mg/dL [facility] Comment: Supplemental ranges: <140 mg/dL before meals <180 mg/dL all other times of the day Specimen Anatomical Collection Method Collection Time Receive d Time (Source) Location / / Volume Laterality Blood specimen 08/11/2017 12:04 8 (specimen) PM EST 12:04 PM EST Yonathan Smith MD POINT OF CARE TEST ORDERABLE S Performing Organization Address City/State/[place] [address] POCT Glucose (08/11/2017 7:31 AM EST) P athologist Signature POC Glucose 156 65 - 199 [facility] Comment: Supplemental ranges: <140 mg/dL before meals <180 mg/dL all other times of the day Specimen Anatomical Collection Method Collection Time Receive d Time (Source) Location / / Volume Laterality Blood specimen 08/11/2017 7:31 AM 018 7:31 (specimen) EST AM EST Yonathan Smith MD POINT OF CARE TEST ORDERABLE S Performing Organization Address City/State/[place] [address] (ABNORMAL) Differential, Automated (08/11/2017 6:16 AM EST) Patholo gist Method Time Signature Neutrophils % 83.7 % [facility] Neutr Abs (ANC) 10.76 (H) 1.70 - [facility] 6.10 [facility] x10(3)/[facility] L LABORATORY Lymphocytes % 6.0 % [facility] Lymphocytes Abs 0.8 (L) 0.9 - 3.2 [facility] x10(3)/[facility] LABORATORY Monocytes % 7.5 % [facility] Monocyte Abs 1.0 (H) 0.3 - 0.9 [facility] x10(3)/[facility] LABORATORY Eosinophils % 2.0 % [facility] Eosinophils Abs 0.3 0.0 - 0.4 [facility] x10(3)/[facility] LABORATORY Basophils % 0.3 % [facility] Basophils Abs 0.0 0.0 - 0.1 [facility] x10(3)/[facility] LABORATORY Immature Gran % 0.50 % [facility] Comment: Immature granulocytes(IG's)percentage an d absolute count will include metamyelocytes, myelocytes, and promyelo cytes. Blood smears from CBCs yielding IG's will be scanned manually for concor dance. If this scan disagrees with the automated IG or if promyelocytes are not ed, a manual differential will be performed. Melisa Gran Abs 0.06 (H) 0.00 - 0.04 x10(3)/[facility] LABORATORY Specimen Anatomical Collection Method Collection Time Receive d Time (Source) Location / / Volume Laterality Blood specimen 08/11/2017 6:16 AM 018 6:24 (specimen) EST AM EST Resulting Agency Comment Spec In Lab Yonathan Smith MD HEMATOLOGY ORDERABLES Performing Organization Address City/State/[place] [address] (ABNORMAL) Hemogram (08/11/2017 6:16 AM EST) Analysis Performed At Patho logist Time Signature WBC 12.9 (H) 4.0 - 9.5 [facility] x10(3)/[facility] LABORATORY RBC 3.28 (L) 4.58 - [facility] 5.54 [facility] x10(6)/[facility] LABORATORY Hemoglobin 9.5 (L) 13.7 - [facility] 16.5 gm/dL [facility] Hematocrit 29.8 (L) 40.5 - [facility] 48.5 % [facility] MCV 90.9 82.9 - [facility] 93.1 [facility] LABORATORY MCH 29.0 27.5 - [facility] 32.1 pg [facility] MCHC 31.9 (L) 32.0 - [facility] 35.7 gm/dL [facility] Platelets 236 145 - 357 [facility] x10(3)/[facility] RDWSD 53.5 (H) 36.0 - [facility] 45.0 [facility] RDWCV 16.3 (H) 11.4 - [facility] 13.8 % [facility] MPV 8.8 7.6 - 12.9 [facility] LABORATORY nRBC % Auto 0.0 % [facility]ORY nRBC Abs Auto 0.000 0.000 - [facility] 0.000 [facility] x10(3)/[facility] LABORATORY Specimen Anatomical Collection Method Collection Time Receive d Time (Source) Location / / Volume Laterality Blood specimen 08/11/2017 6:16 AM 018 6:24 (specimen) EST AM EST Resulting Agency Comment Spec In Lab Yonathan Smith MD HEMATOLOGY ORDERABLES Performing Organization Address City/State/[place] [address] (ABNORMAL) Prothrombin Time (08/11/2017 6:16 AM EST) P athologist Signature PT 15.5 (H) 11.8 - 14.0 [facility] LABORATORY INR 1.3 (H) 0.9 - 1.1 [facility] Comment: An INR <2.0 [...] Organization Address City/State/[place] [address] Basic Metabolic Panel (non-fasting) (08/11/2017 6:16 AM EST) P athologist Signature Glucose Lvl 139 65 - 199 [facility] mg/dL [facility] Comment: Diabetes: >=200 mg/dL plus symp [...] estions. Chloride 98 98 - 107 mmol/L [facility] CO2 27 22 - 31 mmol/L [facility] Anion Gap 13 5 - 15 mmol/L [facility] [facility] Calcium 8.5 8.5 - 10.5 mg/dL [facility] Estimated GFR >60 >=60 [facility] Comment: The reported eGFR should be multiplied b y 1.2 for patients. The MDRD is not an appropriate measure o f renal function for patients with body mass extremes or in patients with acute kidney failure. http://[employer]/DHnkdep http://Viva Deng[employer]/DHMCnkf Specimen Anatomical Collection Method Collection Time Receive d Time (Source) Location / / Volume Laterality Blood specimen 08/11/2017 6:16 AM 018 6:24 (specimen) EST AM EST Resulting Agency Comment Spec In Lab Yonathan Smith MD CHEMISTRY ORDERABLES Performing Organization Address City/State/[place] [address] POCT Glucose (08/11/2017 4:07 AM EST) P athologist Signature POC Glucose 162 65 - 199 [facility] mg/dL [facility] Comment: Supplemental ranges: <140 mg/dL before meals <180 mg/dL all other times of the day Specimen Anatomical Collection Method Collection Time Receive d Time (Source) Location / / Volume Laterality Blood specimen 08/11/2017 4:07 AM 018 4:07 (specimen) EST AM EST Yonathan Smith MD POINT OF CARE TEST ORDERABLE S Performing Organization Address City/State/ZIP Code Phon e Number [address] POCT Glucose (08/10/2017 11:59 PM EST) athologist Signature POC Glucose 166 65 - 199 [place] mg/dL [facility] Comment: Supplemental ranges: <140 mg/dL before meals <180 mg/dL all other times of the day Specimen Anatomical Collection Method Collection Time Receive d Time (Source) Location / / Volume Laterality Blood specimen 08/10/2017 11:59 8 (specimen) PM EST 11:59 PM EST Yonathan Smith MD POINT OF CARE TEST ORDERABLE S Performing Organization Address City/[facility]/ZIP Code Phon e Number [address] POCT Glucose (08/10/2017 8:12 PM EST) athologist Signature POC Glucose 156 65 - 199 [place] mg/dL [facility] Comment: Supplemental ranges: <140 mg/dL before meals <180 mg/dL all other times of the day Specimen Anatomical Collection Method Collection Time Receive d Time (Source) Location / / Volume Laterality Blood specimen 08/10/2017 8:12 PM 018 8:12 (specimen) EST PM EST Yonathan Smith MD POINT OF CARE TEST ORDERABLE S Performing Organization Address City/[facility]/ZIP Code Phon e Number [address] (ABNORMAL) POCT Glucose (08/10/2017 4:42 PM EST) athologist Signature POC Glucose 211 (H) 65 - 199 [facility] [place] mg/dL [facility] Comment: Supplemental ranges: <140 mg/dL before meals <180 mg/dL all other times of the day Specimen Anatomical Collection Method Collection Time Receive d Time (Source) Location / / Volume Laterality Blood specimen 08/10/2017 4:42 PM 018 4:42 (specimen) EST PM EST Yonathan Smith MD POINT OF CARE TEST ORDERABLE S Performing Organization Address City/State/ZIP Code Phon e Number [place] [id number] [facility]OSPITAL LABORATORY Drive (ABNORMAL) Differential, Automated (08/10/2017 2:30 PM EST) [facility] Method Time Signature Neutrophils % 87.6 % [facility] Neutr Abs (ANC) 9.90 (H) 1.70 - [facility] 6.10 [facility] x10(3)/[facility] L LABORATORY Lymphocytes % 4.3 % [facility] Lymphocytes Abs 0.5 (L) 0.9 - 3.2 [facility] x10(3)/[facility] LABORATORY Monocytes % 6.0 % [facility] Monocyte Abs 0.7 0.3 - 0.9 [facility] x10(3)/[facility] LABORATORY Eosinophils % 1.1 % [facility] Eosinophils Abs 0.1 0.0 - 0.4 [facility] x10(3)/[facility] LABORATORY Basophils % 0.4 % [facility] Basophils Abs 0.0 0.0 - 0.1 [facility] x10(3)/[facility] LABORATORY Immature Gran % 0.60 % [facility] Comment: Immature granulocytes(IG's)percentage an d absolute count will include metamyelocytes, myelocytes, and promyelo cytes. Blood smears from CBCs yielding IG's will be scanned manually for concor dance. If this scan disagrees with the automated IG or if promyelocytes are not ed, a manual differential will be performed. Melisa Gran Abs 0.07 (H) 0.00 - 0.04 x10(3)/[facility] LABORATORY Specimen Anatomical Collection Method Collection Time Receive d Time (Source) Location / / Volume Laterality Blood specimen 08/10/2017 2:30 PM 018 2:48 (specimen) EST PM EST Resulting Agency Comment Spec In Lab Yonathan Smith MD HEMATOLOGY ORDERABLES Performing Organization Address City/[facility]/[place] [address] (ABNORMAL) Hemogram (08/10/2017 2:30 PM EST) Analysis Performed At Patho logist Time Signature WBC 11.3 (H) 4.0 - 9.5 [facility] x[facility](3[facility] LABORATORY RBC 3.13 (L) 4.58 - [place] 5.54 [facility] x10(6)/[facility] LABORATORY Hemoglobin 8.9 (L) 13.7 - [facility] 16.5 gm/dL [facility] Hematocrit 28.4 (L) 40.5 - [place] 48.5 % [facility] MCV 90.7 82.9 - [facility] 93.1 [facility] LABORATORY MCH 28.4 27.5 - [facility] 32.1 pg [facility] MCHC 31.3 (L) 32.0 - [place] 35.7 gm/dL [facility] Platelets 213 145 - 357 [facility] x10(3)/[facility] LABORATORY RDWSD 53.7 (H) 36.0 - [facility] 45.0 [facility] LABORATORY RDWCV 16.4 (H) 11.4 - [place] 13.8 % [facility] MPV 8.9 7.6 - 12.9 [facility] LABORATORY nRBC % Auto 0.0 % [facility] nRBC Abs Auto 0.000 0.000 - [facility] 0.000 [facility] x10(3)/[facility] LABORATORY Specimen Anatomical Collection Method Collection Time Receive d Time (Source) Location / / Volume Laterality Blood specimen 08/10/2017 2:30 PM 018 2:48 (specimen) EST PM EST Resulting Agency Comment Spec In Lab Yonathan Smith MD HEMATOLOGY ORDERABLES Performing Organization Address City/State/[place] [address] (ABNORMAL) POCT Glucose (08/10/2017 1:50 PM EST) P athologist Signature POC Glucose 243 (H) 65 - 199 [facility] mg/dL [facility] Comment: Supplemental ranges: <140 mg/dL before meals <180 mg/dL all other times of the day Specimen Anatomical Collection Method Collection Time Receive d Time (Source) Location / / Volume Laterality Blood specimen 08/10/2017 1:50 PM 018 1:50 (specimen) EST PM EST Yonathan Smith MD POINT OF CARE TEST ORDERABLE S Performing Organization Address City/State/ZIP Code Phon e Number [address] POCT Glucose (08/10/2017 11:21 AM EST) P athologist Signature POC Glucose 156 65 - 199 [facility] mg/dL [facility] Comment: Supplemental ranges: <140 mg/dL before meals <180 mg/dL all other times of the day Specimen Anatomical Collection Method Collection Time Receive d Time (Source) Location / / Volume Laterality Blood specimen 08/10/2017 11:21 8 (specimen) AM EST 11:21 AM EST Yonathan Smith MD POINT OF CARE TEST ORDERABLE S Performing Organization Address City/State/[place] [address] (ABNORMAL) Differential, Automated (08/10/2017 10:28 AM EST) Patholo gist Method Time Signature Neutrophils % 85.3 % [facility] Neutr Abs (ANC) 9.43 (H) 1.70 - [place] 6.10 [facility] x10(3)/[facility] L LABORATORY Lymphocytes % 5.5 % [facility] Lymphocytes Abs 0.6 (L) 0.9 - 3.2 [facility] x10(3)/[facility] LABORATORY Monocytes % 5.9 % [facility] Monocyte Abs 0.6 0.3 - 0.9 [facility] x10(3)/[facility] LABORATORY Eosinophils % 2.1 % [facility] Eosinophils Abs 0.2 0.0 - 0.4 [facility] x10(3)/[facility] LABORATORY Basophils % 0.4 % [facility] Basophils Abs 0.0 0.0 - 0.1 [facility] x10(3)/[facility] LABORATORY Immature Gran % 0.80 % [facility] Comment: Immature granulocytes(IG's)percentage an d absolute count will include metamyelocytes, myelocytes, and promyelo cytes. Blood smears from CBCs yielding IG's will be scanned manually for concor dance. If this scan disagrees with the automated IG or if promyelocytes are not ed, a manual differential will be performed. Melisa Gran Abs 0.09 (H) 0.00 - 0.04 x10(3)/[facility] LABORATORY Specimen Anatomical Collection Method Collection Time Receive d Time (Source) Location / / Volume Laterality Blood specimen 08/10/2017 10:28 8 (specimen) AM EST 10:35 AM EST Resulting Agency Comment Spec In Lab Yonathan Smith MD HEMATOLOGY ORDERABLES Performing Organization Address City/State/[place] [address] (ABNORMAL) Hemogram (08/10/2017 10:28 AM EST) Analysis Performed At Patho logist Time Signature WBC 11.0 (H) 4.0 - 9.5 [facility] x10(3)/[facility] LABORATORY RBC 3.02 (L) 4.58 - [facility] 5.54 [facility] x10(6)/[facility] LABORATORY Hemoglobin 8.8 (L) 13.7 - [facility] 16.5 gm/dL [facility] Hematocrit 28.1 (L) 40.5 - [facility] 48.5 % [facility] MCV 93.0 82.9 - [facility] 93.1 [facility] LABORATORY MCH 29.1 27.5 - [facility] 32.1 pg [facility] MCHC 31.3 (L) 32.0 - [facility] 35.7 gm/dL [facility] Platelets 207 145 - 357 [facility] x10(3)/[facility] RDWSD 55.3 (H) 36.0 - [facility] R[facility] 45.0 [facility] RDWCV 16.4 (H) 11.4 - [facility] 13.8 % [facility] MPV 9.0 7.6 - 12.9 [facility] LABORATORY nRBC % Auto 0.0 % [facility] nRBC Abs Auto 0.000 0.000 - [place] 0.000 [facility] x10(3)/[facility] LABORATORY Specimen Anatomical Collection Method Collection Time Receive d Time (Source) Location / / Volume Laterality Blood specimen 08/10/2017 10:28 8 (specimen) AM EST 10:35 AM EST Resulting Agency Comment Spec In Lab Yonathan Smith MD HEMATOLOGY ORDERABLES Performing Organization Address City/State/[place] [address] VS Angiogram/intervention (vascular) (08/10/2017 [...] 2.5x80 5. Completion RLE angiogram 6. L HAND BOOTMAKER angiogram 7. 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 - L HAND BOOTMAKER angriogram demonstrated: High fe moral bifurcation over the proximal half of the femoral head. L HAND BOOTMAKER access in the distal L HAND BOOTMAKER. - Closure device: Mynx Technical Procedure: ?The pat ient was correctly identified in the pre-procedure holding area. ??After a discussion of e risks and benefits, operative consent was [...] for a 45cm 5F Destination. V18 and [place] a nd QuickCross catheters were used to [...] bifurcation. Access appeared in the distal R HAND BOOTMAKER. Closure and sheath removal was performed with [...] 2.5x80 5. Completion RLE angiogram 6. L HAND BOOTMAKER angiogram 7. 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 - L HAND BOOTMAKER angriogram demonstrated: High fe moral bifurcation over the proximal half of the femoral head. L HAND BOOTMAKER access in the distal L HAND BOOTMAKER. - Closure device: Mynx Technical Procedure: The [...] for a 45cm 5F Destination. V18 and [place] a nd QuickCross catheters were used to [...] bifurcation. Access appeared in the distal R HAND BOOTMAKER. Closure and sheath removal was performed with [...] Differential, Automated (08/10/2017 5:50 AM EST) [facility] Method Time Signature Neutrophils % 80.1 % [facility] Neutr Abs (ANC) 9.01 (H) 1.70 - [facility] 6.10 [facility] x10(3)/[facility] LABORATORY Lymphocytes % 8.8 % [facility] Lymphocytes Abs 1.0 0.9 - 3.2 [facility] x10(3)/[facility] LABORATORY Monocytes % 8.3 % [facility] Monocyte Abs 0.9 0.3 - 0.9 [facility] x10(3)/[facility] LABORATORY Eosinophils % 2.0 % [facility] Eosinophils Abs 0.2 0.0 - 0.4 [facility] x10(3)/[facility] LABORATORY Basophils % 0.4 % [facility] Basophils Abs 0.0 0.0 - 0.1 [facility] x10(3)/[facility] LABORATORY Immature Gran % 0.40 % [facility] Comment: Immature granulocytes(IG's)percentage an d absolute count will include metamyelocytes, myelocytes, and promyelo cytes. Blood smears from CBCs yielding IG's will be scanned manually for concor dance. If this scan disagrees with the automated IG or if promyelocytes are not ed, a manual differential will be performed. Melisa Gran Abs 0.05 (H) 0.00 - 0.04 x10(3)/[facility] LABORATORY Specimen Anatomical Collection Method Collection Time Receive d Time (Source) Location / / Volume Laterality Blood specimen 08/10/2017 5:50 AM 018 5:59 (specimen) EST AM EST Resulting Agency Comment Spec In Lab Yonathan Smith MD HEMATOLOGY ORDERABLES Performing Organization Address City/State/[place] [address] (ABNORMAL) Hemogram (08/10/2017 5:50 AM EST) Analysis Performed At Patho logist Time Signature WBC 11.3 (H) 4.0 - 9.5 [facility] x10(3[facility] LABORATORY RBC 3.15 (L) 4.58 - [place] 5.54 [facility] x10(6)/[facility] LABORATORY Hemoglobin 8.9 (L) 13.7 - [facility] 16.5 gm/dL [facility] Hematocrit 29.0 (L) 40.5 - [facility] 48.5 % [facility] MCV 92.1 82.9 - [facility] 93.1 [facility] LABORATORY MCH 28.3 27.5 - [facility] 32.1 pg [facility] MCHC 30.7 (L) 32.0 - [facility] 35.7 gm/dL [facility] Platelets 231 145 - 357 [facility] x10(3)/[facility] LABORATORY RDWSD 53.9 (H) 36.0 - [facility] 45.0 [facility] LABORATORY RDWCV 16.2 (H) 11.4 - [facility] R[facility]AN 13.8 % [facility] MPV 8.7 7.6 - 12.9 [facility] nRBC % Auto 0.0 % [facility] nRBC Abs Auto 0.000 0.000 - [place] 0.000 [facility] x10(3)/[facility] LABORATORY Specimen Anatomical Collection Method Collection Time Receive d Time (Source) Location / / Volume Laterality Blood specimen 08/10/2017 5:50 AM 018 5:59 (specimen) EST AM EST Resulting Agency Comment Spec In Lab Yonathan Smith MD HEMATOLOGY ORDERABLES Performing Organization Address City/State/[place] [address] (ABNORMAL) Basic Metabolic Panel (non-fasting) (08/10/2017 5:50 AM EST) athologist Signature Glucose Lvl 135 65 - 199 [facility] mg/dL [facility] Comment: Diabetes: >=200 mg/dL plus symp [...] estions. Chloride 104 98 - 107 mmol/L [facility] CO2 27 22 - 31 mmol/L [facility] Anion Gap 13 5 - 15 mmol/L [facility] Calcium 8.1 (L) 8.5 - 10.5 mg/dL [facility] Estimated GFR >60 >=60 [facility] Comment: The reported eGFR should be multiplied b y 1.2 for patients. The MDRD is not an appropriate measure o f renal function for patients with body mass extremes or in patients with acute kidney failure. http://[employer]/DHnkdep http://Viva Deng[employer]/DHMCnkf Specimen Anatomical Collection Method Collection Time Receive d Time (Source) Location / / Volume Laterality Blood specimen 08/10/2017 5:50 AM 018 5:59 (specimen) EST AM EST Resulting Agency Comment Spec In Lab Yonathan Smith MD CHEMISTRY ORDERABLES Performing Organization Address City/State/[place] [address] (ABNORMAL) Prothrombin Time (08/10/2017 5:50 AM EST) athologist Signature PT 16.8 (H) 11.8 - 14.0 [facility] LABORATORY INR 1.4 (H) 0.9 - 1.1 [facility] Comment: An INR <2.0 [...] Organization Address City/State/[place] [address] (ABNORMAL) POCT Glucose (08/10/2017 4:01 AM EST) athologist Signature POC Glucose 206 (H) 65 - 199 [facility] Comment: Supplemental ranges: <140 mg/dL before meals <180 mg/dL all other times of the day Specimen Anatomical Collection Method Collection Time Receive d Time (Source) Location / / Volume Laterality Blood specimen 08/10/2017 4:01 AM 018 4:01 (specimen) EST AM EST Yonathan Smith MD POINT OF CARE TEST ORDERABLE S Performing Organization Address City/State/[place] [address] POCT Glucose (08/10/2017 2:01 AM EST) athologist Signature POC Glucose 188 65 - 199 [facility] mg/dL [facility] Comment: Supplemental ranges: <140 mg/dL before meals <180 mg/dL all other times of the day Specimen Anatomical Collection Method Collection Time Receive d Time (Source) Location / / Volume Laterality Blood specimen 08/10/2017 2:01 AM 018 2:01 (specimen) EST AM EST Yonathan Smith MD POINT OF CARE TEST ORDERABLE S Performing Organization Address City/State/ZIP Code Phon e Number [address] (ABNORMAL) POCT Glucose (08/09/2017 11:42 PM EST) athologist Signature POC Glucose 283 (H) 65 - 199 [facility] mg/dL [facility] Comment: Supplemental ranges: <140 mg/dL before meals <180 mg/dL all other times of the day Specimen Anatomical Collection Method Collection Time Receive d Time (Source) Location / / Volume Laterality Blood specimen 08/09/2017 11:42 8 (specimen) PM EST 11:42 PM EST Yonathan Smith MD POINT OF CARE TEST ORDERABLE S Performing Organization Address City/[facility]/[place] [address] POCT Glucose (08/09/2017 8:55 PM EST) athologist Signature POC Glucose 182 65 - 199 [facility] mg/dL [facility] Comment: Supplemental ranges: <140 mg/dL before meals <180 mg/dL all other times of the day Specimen Anatomical Collection Method Collection Time Receive d Time (Source) Location / / Volume Laterality Blood specimen 08/09/2017 8:55 PM 018 8:55 (specimen) EST PM EST Yonathan Smith MD POINT OF CARE TEST ORDERABLE S Performing Organization Address City/[facility]/[place] [address] (ABNORMAL) APTT (08/09/2017 6:42 PM EST) athologist Signature PTT 90 (H) 25 - 35 sec [facility] Comment: The recommended therapeutic [...] Address City/State/ZIP Code Phon e Number [address] POCT Glucose (08/09/2017 4:41 PM EST) athologist Signature POC Glucose 195 65 - 199 [place] mg/dL [facility] Comment: Supplemental ranges: <140 mg/dL before meals <180 mg/dL all other times of the day Specimen Anatomical Collection Method Collection Time Receive d Time (Source) Location / / Volume Laterality Blood specimen 08/09/2017 4:41 PM 018 4:41 (specimen) EST PM EST Yonathan Smith MD POINT OF CARE TEST ORDERABLE S Performing Organization Address City/[facility]/ZIP Code Phon e Number [address] POCT Glucose (08/09/2017 12:29 PM EST) athologist Signature POC Glucose 140 65 - 199 [place] mg/dL [facility] Comment: Supplemental ranges: <140 mg/dL before meals <180 mg/dL all other times of the day Specimen Anatomical Collection Method Collection Time Receive d Time (Source) Location / / Volume Laterality Blood specimen 08/09/2017 12:29 8 (specimen) PM EST 12:29 PM EST Yonathan Smith MD POINT OF CARE TEST ORDERABLE S Performing Organization Address City/State/ZIP Code Phon e Number [address] POCT Glucose (08/09/2017 9:59 AM EST) athologist Signature POC Glucose 135 65 - 199 [place] mg/dL [facility] Comment: Supplemental ranges: <140 mg/dL before meals <180 mg/dL all other times of the day Specimen Anatomical Collection Method Collection Time Receive d Time (Source) Location / / Volume Laterality Blood specimen 08/09/2017 9:59 AM 018 9:59 (specimen) EST AM EST Yonathan Smith MD POINT OF CARE TEST ORDERABLE S Performing Organization Address [facility]/ZIP Code Phon e Number [address] Specimen to Pathology (08/09/2017 8:41 AM EST) Specimen Anatomical Collection Method Collection Time Receive d Time (Source) Location / / Volume Laterality AP Specimen 08/09/2017 8:41 AM 8 8:41 EST AM EST Narrative [facility] ORY - 08/09/2017 8:41 AM EST Specimen requisition ordered. ??Separate Pathology report to follow Yonathan Smith MD PATHOLOGY/CYTOLOGY ORDERABLE S Performing Organization Address City/[facility]/[place] [address] H[address] LAB[address]ORY Drive Surgical Pathology Report (08/09/2017 8:40 AM EST) Component Value Ref Test Analysis Performed At [facility] Range Method Time Signature Surgical [id number] ? Location: [facility]; [facility]; A [facility] Report The signing pathologist has (i) examined the relevant preparation(s) for the [facility] specimen(s) and (ii) rendered or confirmed the diagnosis(es) . HOSPITAL LABORATORY . 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 ?Viable proximal resection margins. Electronically signed by: ??Henrique Saravia MD Verified: ??08/13/2017 ?Pathologist Performed at: ??-[facility] Dept. of Pathology, [place], [place] CLINICAL INFORMATION Specimen Submitted: A - [...] MD PATHOLOGY/CYTOLOGY ORDERABLE S Performing Organization Address City/[facility]/[place] [address] Anaerobic Culture (08/09/2017 8:30 AM EST) [facility] gist Method Time Signature Anaerobic No anaerobic [facility] Culture organisms [facility] LABORATORY Specimen Anatomical Collection Method Collection [...] Organization Address City/State/[place] [address] (ABNORMAL) Abscess/Wound Aspirate Culture (08/09/2017 8:30 AM EST) Patholo gist Method Time Signature Abscess/Wound Moderate mixed [place] Aspirate bacterial [place] Culture morphotypes [facility] normal LABORATORY cutaneous leroy (A) Gram Stain Rare White Blood Cells [place] Few Gram Positive Cocci in pairs [place] (A) [facility] LABORATORY Organism Gram Positive [place] Cocci in pairs [place] (A) [facility] LABORATORY Specimen Anatomical Collection Method Collection Time [...] [facility]/ZIP Code Phon e Number [address] POCT Glucose (08/09/2017 4:28 AM EST) P athologist Signature POC Glucose 128 65 - 199 [facility] LABORATORY Comment: Supplemental ranges: <140 mg/dL before meals <180 mg/dL all other times of the day Specimen Anatomical Collection Method Collection Time Receive d Time (Source) Location / / Volume Laterality Blood specimen 08/09/2017 4:28 AM 018 4:28 (specimen) EST AM EST Yonathan Smith MD POINT OF CARE TEST ORDERABLE S Performing Organization Address City/[facility]/ZIP Code Phon e Number [address] ABORH Recheck Status (08/09/2017 1:10 AM EST) Patholo gist Method Time Signature ABORH Type Completed [facility] LABORATORY Specimen Anatomical Collection Method Collection Time Receive d Time (Source) Location / / Volume Laterality Blood specimen 08/09/2017 1:10 AM 018 1:35 (specimen) EST AM EST Resulting Agency Comment Spec In Lab Yonathan Smith MD BLOOD BANK ORDERABLES Performing Organization Address City/State/[place] [address] Antibody screen (08/09/2017 1:10 AM EST) Patholo gist Method Time Signature Ab Screen Negative [facility] LABORATORY Expires at 08/12/2017 [place] ZHAORYAN [id number] on: [facility] LABORATORY Specimen Anatomical Collection Method Collection Time Receive d Time (Source) Location / / Volume Laterality Blood specimen 08/09/2017 1:10 AM 018 1:35 (specimen) EST AM EST Resulting Agency Comment Spec In Lab Yonathan Smith MD BLOOD BANK ORDERABLES Performing Organization Address City/[facility]/ZIP Code Phon e Number [address] ABO/Rh Typing (08/09/2017 1:10 AM EST) P athologist Signature ABORh Type O Pos [facility] LABORATORY Specimen Anatomical Collection Method Collection Time Receive d Time (Source) Location / / Volume Laterality Blood specimen 08/09/2017 1:10 AM 018 1:35 (specimen) EST AM EST Resulting Agency Comment Spec In Lab Yonathan Smith MD BLOOD BANK ORDERABLES Performing Organization Address City/[facility]/ZIP Code Phon e Number [address] (ABNORMAL) APTT (08/09/2017 1:10 AM EST) P athologist Signature PTT 86 (H) 25 - 35 sec [facility] LABORATORY Comment: The recommended therapeutic [...] [facility]/[place] [address] (ABNORMAL) Differential, Automated (08/09/2017 1:10 AM EST) Patholo gist Method Time Signature Neutrophils % 76.2 % [facility] LABORATORY Neutr Abs (ANC) 8.59 (H) 1.70 - [facility] 6.10 [facility] x10(3)/[facility] LABORATORY Lymphocytes % 11.0 % [facility] LABORATORY Lymphocytes Abs 1.2 0.9 - 3.2 [facility] x10(3)/[facility] LABORATORY Monocytes % 8.4 % [facility] LABORATORY Monocyte Abs 1.0 (H) 0.3 - 0.9 [facility] x10(3)/[facility] LABORATORY Eosinophils % 3.5 % [facility] LABORATORY Eosinophils Abs 0.4 0.0 - 0.4 [facility] x10(3)/[facility] LABORATORY Basophils % 0.5 % [facility] LABORATORY Basophils Abs 0.1 0.0 - 0.1 [facility] x10(3)/[facility] LABORATORY Immature Gran % 0.40 % [facility] LABORATORY Comment: Immature granulocytes(IG's)percentage an d absolute count will include metamyelocytes, myelocytes, and promyelo cytes. Blood smears from CBCs yielding IG's will be scanned manually for concor dance. If this scan disagrees with the automated IG or if promyelocytes are not ed, a manual differential will be performed. Melisa Gran Abs 0.05 (H) 0.00 - 0.04 x10(3)/[facility] LABORATORY Specimen Anatomical Collection Method Collection Time Receive d Time (Source) Location / / Volume Laterality Blood specimen 08/09/2017 1:10 AM 018 1:19 (specimen) EST AM EST Resulting Agency Comment Spec In Lab Yonathan Smith MD HEMATOLOGY ORDERABLES Performing Organization Address City/State/ZIP Code Phon e Number [address] (ABNORMAL) Hemogram (08/09/2017 1:10 AM EST) Analysis Performed At Patho logist Time Signature WBC 11.3 (H) 4.0 - 9.5 [facility] x10(3)/[facility] LABORATORY RBC 3.47 (L) 4.58 - [place] Z[place] 5.54 [facility] x10(6)/[facility] LABORATORY Hemoglobin 10.0 (L) 13.7 - [facility] 16.5 gm/dL [facility] LABORATORY Hematocrit 31.9 (L) 40.5 - [facility] 48.5 % [facility] LABORATORY MCV 91.9 82.9 - [facility] 93.1 [facility] LABORATORY MCH 28.8 27.5 - [facility] 32.1 pg [facility] LABORATORY MCHC 31.3 (L) 32.0 - [facility] 35.7 gm/dL [facility] LABORATORY Platelets 234 145 - 357 [facility] x10(3)/[facility] LABORATORY RDWSD 54.0 (H) 36.0 - [facility] 45.0 [facility] LABORATORY RDWCV 16.2 (H) 11.4 - [facility] 13.8 % [facility] LABORATORY MPV 8.7 7.6 - 12.9 [facility] LABORATORY nRBC % Auto 0.0 % [facility] LABORATORY nRBC Abs Auto 0.000 0.000 - [facility] 0.000 [facility] x10(3)/[facility] LABORATORY Specimen Anatomical Collection Method Collection Time Receive d Time (Source) Location / / Volume Laterality Blood specimen 08/09/2017 1:10 AM 018 1:19 (specimen) EST AM EST Resulting Agency Comment Spec In Lab Yonathan Smith MD HEMATOLOGY ORDERABLES Performing Organization Address City/State/[place] [address] (ABNORMAL) Prothrombin Time (08/09/2017 1:10 AM EST) P athologist Signature PT 16.0 (H) 11.8 - 14.0 [facility] LABORATORY INR 1.3 (H) 0.9 - 1.1 [facility] LABORATORY Comment: An INR <2.0 [...] Organization Address City/State/ZIP Code Phon e Number [place] [id number] HOSPITAL LABORATORY Drive (ABNORMAL) Basic Metabolic Panel (non-fasting) (08/09/2017 1:10 AM EST) P athologist Signature Glucose Lvl 108 65 - 199 [facility] mg/dL [facility] LABORATORY Comment: Diabetes: >=200 mg/dL plus symp [...] Chloride 96 (L) 98 - 107 mmol/L [facility] LABORATORY CO2 29 22 - 31 mmol/L [facility] LABORATORY Anion Gap 13 5 - 15 mmol/L [facility] LABORATORY Calcium 8.3 (L) 8.5 - 10.5 mg/dL [facility] LABORATORY Estimated GFR 45 (L) >=60 [facility] LABORATORY Comment: The reported eGFR should be multiplied b y 1.2 for patients. The MDRD is not an appropriate measure o f renal function for patients with body mass extremes or in patients with acute kidney failure. http://[employer]/DHnkdep http://[employer]/DHMCnkf Specimen Anatomical Collection Method Collection Time Receive d Time (Source) Location / / Volume Laterality Blood specimen 08/09/2017 1:10 AM 018 1:19 (specimen) EST AM EST Resulting Agency Comment Spec In Lab Yonathan Smith MD CHEMISTRY ORDERABLES Performing Organization Address City/State/ZIP Code Phon e Number [address] POCT Glucose (08/09/2017 12:05 AM EST) athologist Signature POC Glucose 128 65 - 199 [facility] mg/dL [facility] LABORATORY Comment: Supplemental ranges: <140 mg/dL before meals <180 mg/dL all other times of the day Specimen Anatomical Collection Method Collection Time Receive d Time (Source) Location / / Volume Laterality Blood specimen 08/09/2017 12:05 8 (specimen) AM EST 12:05 AM EST Yonathan Smith MD POINT OF CARE TEST ORDERABLE S Performing Organization Address City/[facility]/[place] [address] (ABNORMAL) POCT Glucose (08/08/2017 7:36 PM EST) athologist Signature POC Glucose 215 (H) 65 - 199 [facility] LABORATORY Comment: Supplemental ranges: <140 mg/dL before meals <180 mg/dL all other times of the day Specimen Anatomical Collection Method Collection Time Receive d Time (Source) Location / / Volume Laterality Blood specimen 08/08/2017 7:36 PM 018 7:36 (specimen) EST PM EST Yonathan Smith MD POINT OF CARE TEST ORDERABLE S Performing Organization Address City/State/[place] [address] (ABNORMAL) POCT Glucose (08/08/2017 6:23 PM EST) P athologist Signature POC Glucose 216 (H) 65 - 199 [facility] mg/dL [facility] LABORATORY Comment: Supplemental ranges: <140 mg/dL before meals <180 mg/dL all other times of the day Specimen Anatomical Collection Method Collection Time Receive d Time (Source) Location / / Volume Laterality Blood specimen 08/08/2017 6:23 PM 018 6:23 (specimen) EST PM EST Yonathan Smith MD POINT OF CARE TEST ORDERABLE S Performing Organization Address City/[facility]/[place] [address] (ABNORMAL) APTT (08/08/2017 6:00 PM EST) athologist Signature PTT 97 (H) 25 - 35 sec [facility] LABORATORY Comment: The recommended therapeutic [...] [facility]/ZIP Code Phon e Number [address] POCT Glucose (08/08/2017 4:42 PM EST) athologist Signature POC Glucose 78 65 - 199 [facility] mg/dL [facility] LABORATORY Comment: Supplemental ranges: <140 mg/dL before meals <180 mg/dL all other times of the day Specimen Anatomical Collection Method Collection Time Receive d Time (Source) Location / / Volume Laterality Blood specimen 08/08/2017 4:42 PM 018 4:42 (specimen) EST PM EST Yonathan Smith MD POINT OF CARE TEST ORDERABLE S Performing Organization Address City/[facility]/[place] [address] (ABNORMAL) POCT Glucose (08/08/2017 4:01 PM EST) athologist Signature POC Glucose 58 (L) 65 - 199 [facility] mg/dL [facility] LABORATORY Comment: Supplemental ranges: <140 mg/dL before meals <180 mg/dL all other times of the day Specimen Anatomical Collection Method Collection Time Receive d Time (Source) Location / / Volume Laterality Blood specimen 08/08/2017 4:01 PM 018 4:01 (specimen) EST PM EST Yonathan Smith MD POINT OF CARE TEST ORDERABLE S Performing Organization Address City/State/ZIP Code Phon e Number [address] POCT Glucose (08/08/2017 11:51 AM EST) athologist Signature POC Glucose 90 65 - 199 [facility] mg/dL [facility] LABORATORY Comment: Supplemental ranges: <140 mg/dL before meals <180 mg/dL all other times of the day Specimen Anatomical Collection Method Collection Time Receive d Time (Source) Location / / Volume Laterality Blood specimen 08/08/2017 11:51 8 (specimen) AM EST 11:51 AM EST Yonathan Smith MD POINT OF CARE TEST ORDERABLE S Performing Organization Address City/State/[place] [address] (ABNORMAL) APTT (08/08/2017 10:27 AM EST) athologist Signature PTT 64 (H) 25 - 35 sec [facility] LABORATORY Comment: The recommended therapeutic [...] Address City/State/ZIP Code Phon e Number [address] POCT Glucose (08/08/2017 8:02 AM EST) athologist Signature POC Glucose 178 65 - 199 [facility] mg/dL [facility] LABORATORY Comment: Supplemental ranges: <140 mg/dL before meals <180 mg/dL all other times of the day Specimen Anatomical Collection Method Collection Time Receive d Time (Source) Location / / Volume Laterality Blood specimen 08/08/2017 8:02 AM 018 8:02 (specimen) EST AM EST Yonathan Smith MD POINT OF CARE TEST ORDERABLE S Performing Organization Address City/[facility]/ZIP Code Phon e Number [address] (ABNORMAL) APTT (08/08/2017 4:51 AM EST) athologist Signature PTT >160 25 - 35 [facility] (Critical) sec [facility] LABORATORY Comment: Called by: HOWARD, Read back [...] [facility]/ZIP Code Phon e Number [address] (ABNORMAL) Differential, Automated (08/08/2017 4:51 AM EST) Patholo gist Method Time Signature Neutrophils % 77.9 % [facility] LABORATORY Neutr Abs (ANC) 8.17 (H) 1.70 - [facility] 6.10 [facility] x10(3)/[facility] LABORATORY Lymphocytes % 10.3 % [facility] LABORATORY Lymphocytes Abs 1.1 0.9 - 3.2 [facility] x10(3)/[facility] LABORATORY Monocytes % 7.0 % [facility] LABORATORY Monocyte Abs 0.7 0.3 - 0.9 [facility] x10(3)/[facility] LABORATORY Eosinophils % 3.6 % [facility] LABORATORY Eosinophils Abs 0.4 0.0 - 0.4 [facility] x10(3)/[facility] LABORATORY Basophils % 0.5 % [facility] LABORATORY Basophils Abs 0.0 0.0 - 0.1 [facility] x10(3)/[facility] LABORATORY Immature Gran % 0.70 % [facility] [...] Gran Abs 0.07 (H) 0.00 - 0.04 x10(3)/[facility] LABORATORY Specimen Anatomical Collection Method Collection Time Receive d Time (Source) Location / / Volume Laterality Blood specimen 08/08/2017 4:51 AM 018 5:14 (specimen) EST AM EST Resulting Agency Comment Spec In Lab Yonathan Smith MD HEMATOLOGY ORDERABLES Performing Organization Address City/State/[place] [address] (ABNORMAL) Hemogram (08/08/2017 4:51 AM EST) Analysis Performed At Patho logist Time Signature WBC 10.5 (H) 4.0 - 9.5 [facility] x10(3)/[facility] LABORATORY RBC 3.27 (L) 4.58 - [facility] 5.54 [facility] x10(6)/[facility] LABORATORY Hemoglobin 9.3 (L) 13.7 - [facility] 16.5 gm/dL [facility] LABORATORY Hematocrit 30.3 (L) 40.5 - [facility] 48.5 % [facility] LABORATORY MCV 92.7 82.9 - [place] RYAN 93.1 [facility] LABORATORY MCH 28.4 27.5 - [place] 32.1 pg [facility] LABORATORY MCHC 30.7 (L) 32.0 - [place] [place] 35.7 gm/dL [facility] LABORATORY Platelets 252 145 - 357 [facility] x10(3)/[facility] LABORATORY RDWSD 54.6 (H) 36.0 - [place] 45.0 [facility] LABORATORY RDWCV 16.2 (H) 11.4 - [facility] RYAN 13.8 % [facility] LABORATORY MPV 9.1 7.6 - 12.9 [facility] LABORATORY nRBC % Auto 0.0 % [facility] LABORATORY nRBC Abs Auto 0.000 0.000 - [place] RYAN 0.000 [facility] x10(3)/[facility] LABORATORY Specimen Anatomical Collection Method Collection Time Receive d Time (Source) Location / / Volume Laterality Blood specimen 08/08/2017 4:51 AM 018 5:14 (specimen) EST AM EST Resulting Agency Comment Spec In Lab Yonathan Smith MD HEMATOLOGY ORDERABLES Performing Organization Address City/State/[place] [address] (ABNORMAL) Prothrombin Time (08/08/2017 4:51 AM EST) P athologist Signature PT 18.1 (H) 11.8 - 14.0 [facility] LABORATORY INR 1.5 (H) 0.9 - 1.1 [facility] LABORATORY Comment: An INR <2.0 [...] Organization Address City/State/[place] [address] (ABNORMAL) Basic Metabolic Panel (non-fasting) (08/08/2017 4:51 AM EST) athologist Signature Glucose Lvl 229 (H) 65 - 199 [facility] mg/dL [facility] LABORATORY Comment: Diabetes: >=200 mg/dL plus symp toms BUN 35 (H) 10 - 20 mg/dL [facility] LABORATORY Creatinine 1.57 (H) 0.80 - 1.50 mg/dL [facility] LABORATORY Sodium 136 135 - 145 mmol/L [facility] Chloride 94 (L) 98 - 107 mmol/L [facility] LABORATORY CO2 25 22 - 31 mmol/L [facility] LABORATORY Anion Gap 17 (H) 5 - 15 mmol/L [facility] LABORATORY Calcium 7.9 (L) 8.5 - 10.5 mg/dL [facility] LABORATORY Estimated GFR 44 (L) >=60 [facility] LABORATORY Comment: The reported eGFR should be multiplied b y 1.2 for patients. The MDRD is not an appropriate measure o f renal function for patients with body mass extremes or in patients with acute kidney failure. http://[employer]/DHnkdep http://[employer]/DHMCnkf Specimen Anatomical Collection Method Collection Time Receive d Time (Source) Location / / Volume Laterality Blood specimen 08/08/2017 4:51 AM 018 5:14 (specimen) EST AM EST Resulting Agency Comment Spec In Lab Yonathan Smith MD CHEMISTRY ORDERABLES Performing Organization Address City/[facility]/ZIP Code Phon e Number [address] POCT Glucose (08/08/2017 4:20 AM EST) athologist Signature POC Glucose 193 65 - 199 [facility] mg/dL [facility] LABORATORY Comment: Supplemental ranges: <140 mg/dL before meals <180 mg/dL all other times of the day Specimen Anatomical Collection Method Collection Time Receive d Time (Source) Location / / Volume Laterality Blood specimen 08/08/2017 4:20 AM 018 4:20 (specimen) EST AM EST Yonathan Smith MD POINT OF CARE TEST ORDERABLE S Performing Organization Address City/[facility]/[place] [address] POCT Glucose (08/07/2017 11:11 PM EST) athologist Signature POC Glucose 124 65 - 199 [facility] mg/dL [facility] LABORATORY Comment: Supplemental ranges: <140 mg/dL before meals <180 mg/dL all other times of the day Specimen Anatomical Collection Method Collection Time Receive d Time (Source) Location / / Volume Laterality Blood specimen 08/07/2017 11:11 8 (specimen) PM EST 11:11 PM EST Yonathan Smith MD POINT OF CARE TEST ORDERABLE S Performing Organization Address City/State/[place] [address] (ABNORMAL) APTT (08/07/2017 10:18 PM EST) athologist Signature PTT 114 (H) 25 - 35 sec [facility] LABORATORY Comment: The recommended therapeutic [...] Address City/State/ZIP Code Phon e Number [address] POCT Glucose (08/07/2017 8:10 PM EST) athologist Signature POC Glucose 140 65 - 199 [facility]/dL [facility]OR[facility]ORY Comment: Supplemental ranges: <140 mg/dL before meals <180 mg/dL all other times of the day Specimen Anatomical Collection Method Collection Time Receive d Time (Source) Location / / Volume Laterality Blood specimen 08/07/2017 8:10 PM 018 8:10 (specimen) EST PM EST Yonathan Smith MD POINT OF CARE TEST ORDERABLE S Performing Organization Address City/State/ZIP Code Phon e Number [address] POCT Glucose (08/07/2017 5:27 PM EST) athologist Signature POC Glucose 187 65 - 199 [facility] mg/dL [facility] LABORATORY Comment: Supplemental ranges: <140 mg/dL before meals <180 mg/dL all other times of the day Specimen Anatomical Collection Method Collection Time Receive d Time (Source) Location / / Volume Laterality Blood specimen 08/07/2017 5:27 PM 018 5:27 (specimen) EST PM EST Yonathan Smith MD POINT OF CARE TEST ORDERABLE S Performing Organization Address City/State/ZIP Code Phon e Number [address] POCT Glucose (08/07/2017 3:29 PM EST) athologist Signature POC Glucose 86 65 - 199 [place] mg/dL [facility] LABORATORY Comment: Supplemental ranges: <140 mg/dL before meals <180 mg/dL all other times of the day Specimen Anatomical Collection Method Collection Time Receive d Time (Source) Location / / Volume Laterality Blood specimen 08/07/2017 3:29 PM 018 3:29 (specimen) EST PM EST Yonathan Smith MD POINT OF CARE TEST ORDERABLE S Performing Organization Address City/State/[place] [address] (ABNORMAL) APTT (08/07/2017 2:50 PM EST) athologist Signature PTT 60 (H) 25 - 35 sec [facility] LABORATORY Comment: The recommended therapeutic [...] Organization Address City/State/[place] [address] (ABNORMAL) POCT Glucose (08/07/2017 2:23 PM EST) athologist Signature POC Glucose 55 (L) 65 - 199 [facility] mg/dL [facility] LABOR[facility] Comment: Supplemental ranges: <140 mg/dL before meals <180 mg/dL all other times of the day Specimen Anatomical Collection Method Collection Time Receive d Time (Source) Location / / Volume Laterality Blood specimen 08/07/2017 2:23 PM 018 2:23 (specimen) EST PM EST Yonathan Smith MD POINT OF CARE TEST ORDERABLE S Performing Organization Address City/[facility]/[place]IP [place] [address] POCT Glucose (08/07/2017 12:08 PM EST) athologist Signature POC Glucose 77 65 - 199 [facility] mg/dL [facility] Comment: Supplemental ranges: <140 mg/dL before meals <180 mg/dL all other times of the day Specimen Anatomical Collection Method Collection Time Receive d Time (Source) Location / / Volume Laterality Blood specimen 08/07/2017 12:08 8 (specimen) PM EST 12:08 PM EST Yonathan Smith MD POINT OF CARE TEST ORDERABLE S Performing Organization Address City/State/[place] [address] (ABNORMAL) Differential, Automated (08/07/2017 7:30 AM EST) [facility] gist Method Time Signature Neutrophils % 73.8 % [facility] LABORATORY Neutr Abs (ANC) 7.17 (H) 1.70 - [facility] 6.10 [facility] x10(3)/[facility] LABORATORY Lymphocytes % 12.2 % [facility] LABORATORY Lymphocytes Abs 1.2 0.9 - 3.2 [facility] x10(3)/[facility] LABORATORY Monocytes % 9.0 % [facility] LABORATORY Monocyte Abs 0.9 0.3 - 0.9 [facility] x10(3)/[facility] LABORATORY Eosinophils % 3.9 % [facility] LABORATORY Eosinophils Abs 0.4 0.0 - 0.4 [facility] x10(3)/[facility] LABORATORY Basophils % 0.6 % [facility] LABORATORY Basophils Abs 0.1 0.0 - 0.1 [facility] x10(3)/[facility] LABORATORY Immature Gran % 0.50 % [facility] LABORATORY Comment: Immature granulocytes(IG's)percentage an d absolute count will include metamyelocytes, myelocytes, and promyelo cytes. Blood smears from CBCs yielding IG's will be scanned manually for concor dance. If this scan disagrees with the automated IG or if promyelocytes are not ed, a manual differential will be performed. Melisa Gran Abs 0.05 (H) 0.00 - 0.04 x10(3)/[facility] LABORATORY Specimen Anatomical Collection Method Collection Time Receive d Time (Source) Location / / Volume Laterality Blood specimen 08/07/2017 7:30 AM 018 7:45 (specimen) EST AM EST Resulting Agency Comment Spec In Lab Yonathan Smith MD HEMATOLOGY ORDERABLES Performing Organization Address City/State/[place] [address] (ABNORMAL) Hemogram (08/07/2017 7:30 AM EST) Analysis Performed At Patho logist Time Signature WBC 9.7 (H) 4.0 - 9.5 [facility] x10(3[facility] LABORATORY RBC 3.54 (L) 4.58 - [facility] 5.54 [facility] x10(6)/[facility] LABORATORY Hemoglobin 9.9 (L) 13.7 - [facility] 16.5 gm/dL [facility] LABORATORY Hematocrit 32.3 (L) 40.5 - [facility] 48.5 % [facility] LABORATORY MCV 91.2 82.9 - [facility] 93.1 [facility] LABORATORY MCH 28.0 27.5 - [facility] 32.1 pg [facility] LABORATORY MCHC 30.7 (L) 32.0 - [facility] 35.7 gm/dL [facility] LABORATORY Platelets 312 145 - 357 [facility] x10(3)/[facility] LABORATORY RDWSD 53.2 (H) 36.0 - [facility] 45.0 [facility] LABORATORY RDWCV 16.0 (H) 11.4 - [facility] RYAN 13.8 % [facility] LABORATORY MPV 8.9 7.6 - 12.9 [facility] LABORATORY nRBC % Auto 0.0 % [facility] LABORATORY nRBC Abs Auto 0.000 0.000 - [facility] 0.000 [facility] x10(3)/[facility] LABORATORY Specimen Anatomical Collection Method Collection Time Receive d Time (Source) Location / / Volume Laterality Blood specimen 08/07/2017 7:30 AM 018 7:45 (specimen) EST AM EST Resulting Agency Comment Spec In Lab Yonathan Smith MD HEMATOLOGY ORDERABLES Performing Organization Address City/State/[place] [address] (ABNORMAL) Basic Metabolic Panel (non-fasting) (08/07/2017 7:30 AM EST) athologist Signature Glucose Lvl 80 65 - 199 [facility] mg/dL [facility] LABORATORY Comment: Diabetes: >=200 mg/dL plus symp [...] estions. Chloride 99 98 - 107 mmol/L [facility] LABORATORY CO2 29 22 - 31 mmol/L [facility] LABOR[facility] Anion Gap 12 5 - 15 mmol/L [facility] LABORATORY Calcium 8.5 8.5 - 10.5 mg/dL [facility] LABORATORY Estimated GFR 59 (L) >=60 [facility] LABORATORY Comment: The reported eGFR should be multiplied b y 1.2 for patients. The MDRD is not an appropriate measure o f renal function for patients with body mass extremes or in patients with acute kidney failure. http://[employer]/DHnkdep http://[employer]Sn[employer]/DHMCnkf Specimen Anatomical Collection Method Collection Time Receive d Time (Source) Location / / Volume Laterality Blood specimen 08/07/2017 7:30 AM 018 7:45 (specimen) EST AM EST Resulting Agency Comment Spec In Lab Yonathan Smith MD CHEMISTRY ORDERABLES Performing Organization Address City/State/[place] [address] POCT Glucose (08/07/2017 7:27 AM EST) athologist Signature POC Glucose 81 65 - 199 [facility] mg/dL [facility] LABORATORY Comment: Supplemental ranges: <140 mg/dL before meals <180 mg/dL all other times of the day Specimen Anatomical Collection Method Collection Time Receive d Time (Source) Location / / Volume Laterality Blood specimen 08/07/2017 7:27 AM 018 7:27 (specimen) EST AM EST Yonathan Smith MD POINT OF CARE TEST ORDERABLE S Performing Organization Address City/[facility]/ZIP Code Phon e Number [address] APTT (08/07/2017 7:04 AM EST) athologist Signature PTT 34 25 - 35 sec [facility] LABORATORY Comment: The recommended therapeutic [...] [facility]/ZIP Code Phon e Number [address] (ABNORMAL) Prothrombin Time (08/07/2017 7:04 AM EST) athologist Signature PT 17.3 (H) 11.8 - 14.0 [facility] LABORATORY INR 1.4 (H) 0.9 - 1.1 [facility] LABORATORY Comment: An INR <2.0 [...] Address City/State/ZIP Code Phon e Number [address] POCT Glucose (08/07/2017 4:03 AM EST) athologist Signature POC Glucose 93 65 - 199 [facility] RYAN mg/dL [facility] LABORATORY Comment: Supplemental ranges: <140 mg/dL before meals <180 mg/dL all other times of the day Specimen Anatomical Collection Method Collection Time Receive d Time (Source) Location / / Volume Laterality Blood specimen 08/07/2017 4:03 AM 018 4:03 (specimen) EST AM EST Yonathan Smith MD POINT OF CARE TEST ORDERABLE S Performing Organization Address City/State/ZIP Code Phon e Number [address] POCT Glucose (08/07/2017 12:04 AM EST) athologist Signature POC Glucose 107 65 - 199 [place] mg/dL [facility] LABORATORY Comment: Supplemental ranges: <140 mg/dL before meals <180 mg/dL all other times of the day Specimen Anatomical Collection Method Collection Time Receive d Time (Source) Location / / Volume Laterality Blood specimen 08/07/2017 12:04 8 (specimen) AM EST 12:04 AM EST Yonathan Smith MD POINT OF CARE TEST ORDERABLE S Performing Organization Address City/State/ZIP Code Phon e Number [address] POCT Glucose (08/06/2017 7:56 PM EST) athologist Signature POC Glucose 178 65 - 199 [place] mg/dL [facility] LABOR[facility]ORY Comment: Supplemental ranges: <140 mg/dL before meals <180 mg/dL all other times of the day Specimen Anatomical Collection Method Collection Time Receive d Time (Source) Location / / Volume Laterality Blood specimen 08/06/2017 7:56 PM 018 7:56 (specimen) EST PM EST Yonathan Smith MD POINT OF CARE TEST ORDERABLE S Performing Organization Address City/State/[place] [address] TcPO2 (08/06/2017 2:32 PM EST) Component Value Ref Test Analysis Performed At [facility] Range Method Time Signature VB Text Department: Vascular Surgery Lab VASCUBASE Report Patient: [id number] (GREGORY HOANG) CPT: 3286719 ICD10: I99.8 Referring Physician: YONATHAN SMITH ?? [...] Mira Truong RN)1119 (Given - Provider: Dory Truong, VAMSI) 1,000 [...] C) (VITAMIN C) tablet 500 mg 08 (Given - Provider: Chiquis Mcgrath RN) 08 (Given - Provider: Chiquis Mcgrath RN) 08 (Given - Provider: Dory Truong RN) 500 mg, Oral, DAILY, First dose on Wed at 1900, Until Discontinued, Routine aspirin EC tablet 81 mg 08 (Given - Provider: Chiquis muñoz RN) 0800 [...] Truong RN) 0800 (Given - Provider: Dory Truong [...] (Given - Provider: Chiquis Mcgrath, VAMSI) 0800 (Given - Provider: Dory Truong RN) 40 mg, Oral, DAILY, First dose on Fri 07/12 at 1700, Until Discontinued, Routine insulin glargine VIAL injection 15 Units 2009 (Given - Provider: Henrique Marks, VAMSI) 2025 (Given - Provider: Mira Truong RN) [...] not met)0504 (Given - Provider: Henrique Marks, RN)0800 (Not Given - Provider: Chiquis Mcgrath [...] hold) 0800 (Given - Provider: Dory Truong, RN) 25 mg, Oral, 2 TIMES DAILY, [...] RN) 0631 (Given - Provider: Mira Truong, RN) 5 mL, Intravenous, EVERY 12 HOURS, [...] Henrique Marks, VAMSI)0824 (Given - Provider: Chiquis Mcgrath RN)1135 (Given [...] 1 dose, Starting Wed08/06/17 at 1659, Until 08/16/17 at 1425, [...] First dose on 08/07/17 at 0445, Until Discontinued
Remove lidocaine 5 [...]
Routine documented in this encounter Care Teams Jackhammer Operator Relationship Specialty Start Date End Date Lovely Vicente MD PCP - General 04/16/[address] [place] [address] documented as of this encounter
--- OUTSIDE RECORDS SUMMARY | 2022-02-20 01:44 | XMS_ITS | Encounter Summary ---
:1945 [place] [address] Care Team Providers Name Role Phone Lovely Vicente MD Primary Care Provider Encounter Details Date Type Department Care Team Description 08/09/2017 Clinical Support Same Day at [facility] Canceled (D-SCHED ERROR [facility] / [place]RECT [place] ) [place] [address] Social History Tobacco Use Types Packs/Day [...] [facility] ER CARDIOLOGY [place], [place] [address] (Wo rk) documented as of this encounter Procedures Procedure Name Priority Date/Time Associated Diagnosis Comme nts SUPERVISOR PRESS ROOM 08/09/2017 12:00 AM Resul ts for this SCAN EST procedure are i n the results section. documented in this encounter Results SCAN DOC: SUPERVISOR PRESS ROOM (08/09/2017 12:00 AM EST) Narrative 08/09/2017 12:00 AM EST This result has an attachment that is no t available. Ordered by an unspecified provider. Scanning Provider MEDIA MGR SCAN EXT ORDR/RSLT documented in this encounter Visit Diagnoses Not on filedocumented in this encounter Care Teams Staffing Administrator Relationship Specialty Start Date End Date Lovely Vicente MD PCP - General 04/16/[address] [place] [address] documented as of this encounter
--- OUTSIDE RECORDS SUMMARY | 2022-02-20 01:44 | XMS_ITS | Encounter Summary ---
:1945 [place] [address] Care Team Providers Name Role Phone Lovely Vicente MD Primary Care Provider Reason for Visit Auth/Cert Specialty Diagnoses / Procedures Referred By Contact Refer red To Contact Diagnoses Critical lower limb ischemia CELLULITIS RT FOOT Procedures EMERGENCY Referral ID Status Reason Start Date Expiration Date Visits Requ ested Visits Authorized [id number] 1 1 Encounter Details Date Type Department Care Team Description 08/09/2017 Anesthesia Event Main Operating Room Daniele Lizama MD [facility] [place] [address] [facility] Rob Jones MD [facility] [address] [place] [address] Anesthesia Record Procedure Summary Procedure Name [...] Knowles, Dory arm), right; VAMSI Rios, RN yovg-aqa-ntpsex catheter system; 20 gauge; 08/16/17; 1047 PIV 07/29/17; 1413; median 07/29/17 1413 by 08/16/17 1047 by cubital vein (antecubital Magdalene Hickey Williams, Dory fossa), left; VAMSI Wyatt, RN pwot-cmu-wpgjzp catheter system; 20 gauge; 08/16/17; 1047 PIV 08/06/17; 1742; cephalic 08/06/17 1742 by 0920 by vein (lateral side of Taylor Laureano Danah y, Caitlyn C, arm), right; VAMSI BONNER zhfc-mec-ckceog catheter system; 22 gauge, 1 in length; Eliseo LAUREANO RN VAS; distraction, intradermal injection, tolerated well, appears comfortable; 0; 08/16/17; 0920 Wound 08/07/17; 1335; knee; 08/07/17 1335 by 08/16/17 1047 by laceration; wound occured Barbara Albert iams, Dory TELEGRAPH LINEMAN; 08/16/17; 1047 VAMSI Alonzo, RN PIV 08/07/17; 1734; cephalic 08/07/17 1734 by 1047 by vein (lateral side of Kendrick, Carlos W, Willia ms, Dory arm), left; MARCIE Wyatt RN yavp-shk-shhnxe catheter system; 22 gauge; distraction, intradermal injection, [...] Santillan MD - 08/09/2017 9:01 AM EST [facility] Department of Anesthesiology Post-procedure Note Patient: Don Fatima Procedure Summary Date Anesthesia Start Anesthesia Stop Room / Location 08/09/17 0802 0901 [facility] OR 14 / [facility] MAIN OR Procedure Diagnosis Surgeon Responsible Provider AMPUTATION, 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 Nerve [...] SETUP performed by Manny Mcknight MD at [facility] MAIN OR ??? PRO CABG, ARTERIAL, SINGLE N/A 07/07/2017 @CABG, USING ARTERIAL GRAFT;SINGLE ARTERIAL GRAFT (WRVU 33.75) performed by Yuan Retana MD at [facility] MAIN OR ??? PRO CABG, ARTERY-VEIN, TWO N/A 07/07/2017 @CABG, TWO VENOUS GRAFTS & ARTERIAL GRAFT (WRVU 7.93) performed by Yuan Retana MD at [facility] MAIN OR ??? PRO COLONOSCOPY, REMV LESN, SNARE 01/16/2014 COLONOSCOPY, POLYPECTOMY, REMOVAL LESION BY SNARE performed by Nohemi Jaimes MD at [facility] ENDOSCOPY ??? PRO ENDOSCOPY W/VIDEO-ASST VEIN HARVEST, CABG Right 07/07/2017 ENDOSCOPIC HARVEST VEIN(S) FOR CABG (WRVU 0.31) performed by Yuan Retana MD at [facility] MAIN OR ??? PRO THYROIDECTOMY 03/28/2013 THYROIDECTOMY, TOTAL OR COMPLETE performed by Manny Mcknight MD at [facility] MAIN OR Social History Substance Use [...] adequate IV access. Brody Santillan MD PGY-2, Animal Warden Pager #[phone] Anesthesiology Staff (Dewhirst): Pre-op summary note as [...] Visit Cardiology Vitaliy Nobles MD [facility] ER CARDIOLOGY [place] [address] (Wo rk) documented as of this [...] Length: 10 cm Gauge: 21 Needle Type: Q-tzefi-xhldh Medication injection made in crementally with aspirations. [...] documented in this encounter Care Teams Senior Bi Architect Relationship Specialty Start Date End Date Lovely Vicente MD PCP - General 04/16/[address] [place] [address] documented as of this encounter
--- OUTSIDE RECORDS SUMMARY | 2022-02-20 01:44 | XMS_ITS | Encounter Summary ---
:1945 Author Organization [facility] [place] [address] Care Team Providers Name Role Phone Lovely Vicente MD Primary Care Provider Reason for Visit Auth/Cert Specialty Diagnoses / Procedures Referred By Contact Refer red To Contact Diagnoses Critical lower limb ischemia CELLULITIS RT FOOT Procedures EMERGENCY Referral ID Status Reason Start Date Expiration Date Visits Requ ested Visits Authorized [id number] 1 1 Encounter Details Date Type Department Care Team Description 08/06/2017 Clinical Support Same Day at [facility] Ischemia of foot [facility] [place] [address] Social History Tobacco Use Types Packs/Day [...] noother symptoms except severe right foot pain. [facility] clinic called as pt on route [...] Visit Cardiology Vitaliy Nobles MD [facility] ER DR CARDIOLOGY [place], [place] 0[address] (Wo rk) documented [...] 444 ms MUSE SYSTEM (Bezet) Calculated P [place] 44 degrees MUSE SYSTEM Calculated R [place] -31 degrees MUSE SYSTEM Calculated T [place] 106 degrees MUSE SYSTEM INTERPRETATION Normal sinus [...] disorder documented in this encounter Care Teams Bird Raiser Relationship Specialty Start Date End Date Lovely Vicente MD PCP - General 04/16/[address] [place] [address] documented as of this encounter
--- OUTSIDE RECORDS SUMMARY | 2022-02-20 01:44 | XMS_ITS | Encounter Summary ---
:1945 Author Organization [facility] [place] [address] Care Team Providers Name Role Phone Lovely Vicente MD Primary Care Provider Reason for Visit Auth/Cert Specialty Diagnoses / Procedures Referred By Contact Refer red To Contact Diagnoses Critical lower limb ischemia CELLULITIS RT FOOT Procedures EMERGENCY Referral ID Status Reason Start Date Expiration Date Visits Requ ested Visits Authorized [id number] 1 1 Encounter Details Date Type Department Care Team Description 08/06/2017 Laboratory Appointment Lab at [facility] Ischemia of foot [facility] [place] [address] Social History Tobacco Use Types Packs/Day [...] Vitaliy Nobles MD [facility] ER [address] [place] [address] (Wo rk) documented as of [...] 19 (L) 20 - 40 [facility] LABORATORY Comment: Prealbumin levels are [...] Organization Address City/State/[place] [address] (ABNORMAL) Basic Metabolic Panel (non-fasting) (08/06/2017 12:32 PM EST) P athologist Signature Glucose Lvl 92 65 - 199 [facility] mg/dL [facility] LABORATORY Comment: Diabetes: >=200 mg/dL plus symp toms BUN 29 (H) 10 - 20 mg/dL [facility] LABORATORY Creatinine 1.33 0.80 - 1.50 [...] 31 mmol/L [facility] LABORATORY Anion Gap 16 (H) 5 - 15 mmol/L [facility] LABORATORY Calcium 8.5 8.5 - 10.5 mg/dL [facility] LABORATORY Estimated GFR 53 (L) >=60 KATALINA Wyatt [facility] LABORATORY Comment: The reported eGFR should be multiplied b y 1.2 for patients. The MDRD is not an appropriate measure o f renal function for patients with body mass extremes or in patients with acute kidney failure. http://[employer]/DHnkdep http://[employer]/DHMCnkf Specimen Anatomical Collection Method Collection Time Receive d Time (Source) Location / / Volume Laterality Blood specimen 08/06/2017 12:32 8 1:15 (specimen) PM EST PM EST Resulting Agency Comment Spec In Lab Arik Clement MD CHEMISTRY ORDERABLES Performing Organization Address City/State/[place] [address] (ABNORMAL) Hemogram (08/06/2017 12:32 PM EST) Analysis Performed At Patho logist Time Signature WBC 11.8 (H) 4.0 - 9.5 [place] R[place] x10(3)/[facility] LABORATORY RBC 3.49 (L) 4.58 - [place] 5.54 [facility] x10(6)/[facility] LABORATORY Hemoglobin 9.9 (L) 13.7 - [place]AN 16.5 gm/dL [facility] LABORATORY Hematocrit 32.0 (L) 40.5 - [place] RYAN 48.5 % [facility] LABORATORY MCV 91.7 82.9 - [place] RYAN 93.1 [facility] LABORATORY MCH 28.4 27.5 - [employer] 32.1 pg [facility] LABORATORY MCHC 30.9 (L) 32.0 - [place] RYAN 35.7 gm/dL [facility] LABORATORY Platelets 326 145 - 357 [place] x10(3)/[facility] LABORATORY RDWSD 53.4 (H) 36.0 - [facility] 45.0 [facility] LABORATORY RDWCV 16.0 (H) 11.4 - [place] 13.8 % [facility] LABORATORY MPV 9.1 7.6 - 12.9 KAT[place]INA [facility] LABORATORY nRBC % Auto 0.0 % [facility] LABORATORY nRBC Abs Auto 0.000 0.000 - [facility] 0.000 [facility] x10(3)/[facility] LABORATORY Specimen Anatomical Collection Method Collection Time Receive d Time (Source) Location / / Volume Laterality Blood specimen 08/06/2017 12:32 8 1:15 (specimen) PM EST PM EST Resulting Agency Comment Spec In Lab Arik Clement MD HEMATOLOGY ORDERABLES Performing Organization Address City/State/[place] [address] documented in this encounter Visit Diagnoses Diagnosis Ischemia of foot Unspecified circulatory system disorder documented in this encounter Care Teams Rose Grader Relationship Specialty Start Date End Date Lovely Vicente MD PCP - General 04/16/[address] [place] [address] documented as of this encounter
--- OUTSIDE RECORDS SUMMARY | 2022-02-20 01:44 | XMS_ITS | Encounter Summary ---
:1945 Author Organization [facility] [place] [address] Care Team Providers Name Role Phone Lovely iVcente MD Primary Care Provider Reason for Visit Auth/Cert Specialty Diagnoses / Procedures Referred By Contact Refer red To Contact Diagnoses Critical lower limb ischemia CELLULITIS RT FOOT Procedures EMERGENCY Referral ID Status Reason Start Date Expiration Date Visits Requ ested Visits Authorized [id number] 1 1 Encounter Details Date Type Department Care Team Description 08/09/2017 Surgery Main Operating Room Yonathan Smith AM PUTATION, Mary Hitchcock MD TRANSMETATARSAL ([place] 12.71) [facility] DR Siddiqui [place] [address] [place] [address] [phone] Social History Tobacco Use Types Packs/Day Years [...] 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 [...] Dorsalis Pedis (Ankle) Artery ?132 ? 0.94 ??[place]-Biphasic ? Posterior Tibial (Ankle) Artery ??154 ? 1.10 ??[place]-Biphasic ? Fourth Toe ? 67 ?0.48 ?? [...] For any problems or questions please call [phone] ZELDA mSith, housekeeping aid Nurse Clinician For issues on weeknights after 5pm and weekends please call [phone] and ask for the Vascular Fellow director consumer affairs. General Instructions None Future Appointments and Orders Future Appointments Provider Department Dept Phone 08/26/2017 4:00 PM Aurelia Rivera PA [facility] [place] [phone] 09/07/2017 3:00 PM LAB, THREE L Lab 3L [facility] [phone] 09/07/2017 4:00 PM Luz Prescott MD [facility]ocrinology [facility] [phone] 09/09/2017 8:00 AM Barbra Soares APRN [facility] [phone] Please bring a list of your current [...] For any problems or questions please call [phone] ZELDA Smith, housekeeping aid Nurse Clinician For issues on weeknights after 5pm and weekends please call [phone] and ask for the Vascular Fellow director consumer affairs. documented in this encounter Medications at Time [...] Discharge Note Patient Destination: [facility] ([facility]) [address] [id number] Transportation: with (at bedside) Time of Discharge: by 12 noon Level of Care: swing Patient Aware: yes Family Notified: yes Md to call report to: Yissel Quintero DINKEY OPERATOR already called RN to call report to: [phone] Shirin Wolf Office of Care Management Pager [phone] Shirin Wolf RN - 08/16/2017 10:50 AM EST [facility] has offered pt swing bed. Pt and accept bed. will transport via car. DINKEY OPERATOR Yissel Quintero aware; d/c paperwork will be completed by 12 noon. [facility] requests pt arrival by 1400 today; DINKEY OPERATOR, RN, and family aware. DINKEY OPERATOR called [facility] and was told that they prefer pt to arrive with wound vac dressing applied but clamped. DINKEY OPERATOR applied new wound vac dressing. RN has [facility] number to call report. PASSR completed; DINKEY OPERATOR paged to request provider signature in highlighted space. Indigo from [facility] notified via email that home wound vac now cancelled; [facility] has picked up from room and order cancelled. Packet started and provided to community mental health worker. Medicare important message explained to patient, patient signed. Copy provided to patient and signature page to OCM for inclusion in pt EMR. L Radha Powers Yoselin - 08/16/2017 10:34 AM EST Office of Care Management/Machine Plate Stacker Patient Name: Gregory Hoang : 1945 Patient has been offered a swing bed at [facility]. The patient will be transported by private transportation. No MD to MD report necessary Please call Nursing Report to [phone], ask for repairer sash and door. Info to accompany patient: Narcotic Prescriptions Copies of Medication Administration Records and IV sheets for past 10 days. Plan: Machine Plate Stacker will be available to the patient and Veterinary Poultry Inspector-RN and/or Vacuum Metalizing Supervisor for further assistance. Patient will be discharged to: [place] [id number] Radha Powers, Machine Plate Stacker Mira Truong, VAMSI - 08/15/2017 10:05 PM EST [address] Flores to ask if he wanted to hold metoprolol dose. BP 95/58. OK to hold this dose Courtney Brito - 08/15/2017 3:26 PM EST Office of Care Management(OCM)/Machine Plate Stacker(RS)/ D/C Planning re : Patient is medically [...] status. 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 Vac in place. Rehab referrals ongoing. Can ambulate in hallway. Change VAC at bedside today. Naty Colindres RN - 08/14/2017 1:33 PM EST Patient Name: Gregory Hoang Patient Age: 72 y.o. Birthdate: 1945 Admit date: 08/06/2017 Attending Physician: Yonathan Smith MD We want him to go to a place for intensive therapy and not at a care home where he will be just sitting there and not getting any therapy. . Contacted by direct care RN, who said that patient and would like information about patient's referral to: [facility] PHONE: [phone] FAX: [phone] CM spoke with RS who said that [...] would be accepted to acute rehab at [facility] as Dr. Smith had recommended . Last PT note recommends home with assist and home health but plan changed yesterday per team and both patient and family agree. [facility] has contacted PT today to ask for follow-up assessment and document ifthey feel that patient could tolerate acute rehab. Once assessment done, CM will meet with patient/family to review assessment and make referrals to SNF vs acute rehab. Await recommendations from PT. Covering pager #[phone]. 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 Library Technician Kaitlin Saha, RN Pager #[phone] Payam Rosales - 08/13/2017 2:37 PM EST Air Traffic Control Operator Encounter Note Patient Name: Gregory Hoang : [id number] MR#: [id number] Admit Date: 08/06/2017 1:41 PM Hospital Day 7 days Narrative: Visited to introduce and assess acceptance of Air Traffic Control Operator services. Pt was awake, alert, oriented and in chair and family was there. Assessment:Patient coping positively with stresses of illness/hospitalization at this time. Pt says that he is hoping to get better and his family was there. Pt says that he has family care and supportand taking one day at time. Intervention and Outcome: Provided emotional support and encouraging presence. 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 A letter describing our affiliations was reviewed with them and theywere educated about their right to choose where referrals are placed. Patient requests referral to [facility] [employer] PHONE: [phone] FAX: [phone]. And Home NPWT (Negative Pressure Wound Therapy) aka wound vac device made available to pt. Serial # confirmed. Reviewed [facility] Proof of Delivery/Assignment of Benefits Statement(POD/AOB) Form w patient or authorized agent signing on behalf of patient. Copy of POD/AOB provided to pt and other copy faxed to [employer] @ fax# [phone] Expected date of discharge: 08/12/2017. 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 Address: [address] [place] [address] [place] [address] (home) Mobile: Telephone Information: Referring Provider: No [...] performed by Manny Mcknight MD at [facility] MAIN OR ??? PRO CABG, ARTERIAL, SINGLE N/A 07/07/2017 @CABG, USING ARTERIAL GRAFT;SINGLE ARTERIAL GRAFT (WRVU 33.75) performed by Yuan Retana MD at [facility] MAIN OR ??? PRO CABG, ARTERY-VEIN, TWO N/A 07/07/2017 @CABG, TWO VENOUS GRAFTS & ARTERIAL GRAFT (WRVU 7.93) performed by Yuan Retana MD at [facility] MAIN OR ??? PRO COLONOSCOPY, REMV LESN, SNARE 01/16/2014 COLONOSCOPY, POLYPECTOMY, REMOVAL LESION BY SNARE performed by Nohemi Jaimes MD at [facility] ENDOSCOPY ??? PRO ENDOSCOPY W/VIDEO-ASST VEIN HARVEST, CABG Right 07/07/2017 ENDOSCOPIC HARVEST VEIN(S) FOR CABG (WRVU 0.31) performed by Yuan Retana MD at [facility] MAIN OR ??? 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 Address: [address] [place] [address] [place] [address] (home) Mobile: Telephone Information: Referring Provider: No [...] performed by Manny Mcknight MD at [facility] MAIN OR ??? PRO CABG, ARTERIAL, SINGLE N/A 07/07/2017 @CABG, USING ARTERIAL GRAFT;SINGLE ARTERIAL GRAFT (WRVU 33.75) performed by Yuan Retana MD at [facility] MAIN OR ??? PRO CABG, ARTERY-VEIN, TWO N/A 07/07/2017 @CABG, TWO VENOUS GRAFTS & ARTERIAL GRAFT (WRVU 7.93) performed by Yuan Retana MD at [facility] OR ??? PRO COLONOSCOPY, REMV LESN, SNARE 01/16/2014 COLONOSCOPY, POLYPECTOMY, REMOVAL LESION BY SNARE performed by Nohemi Jaimes MD at [facility] ENDOSCOPY ??? PRO ENDOSCOPY W/VIDEO-ASST VEIN HARVEST, CABG Right 07/07/2017 ENDOSCOPIC HARVEST VEIN(S) FOR CABG (WRVU 0.31) performed by Yuan Retana MD at [facility] MAIN OR ??? 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 Vascular resident director consumer affairs and will forward result to the team prior to rounds. 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 [...] performed by Manny Mcknight MD at [facility] MAIN OR ??? PRO CABG, ARTERIAL, SINGLE N/A 07/07/2017 @CABG, USING ARTERIAL GRAFT;SINGLE ARTERIAL GRAFT (WRVU 33.75) performed by Yuan Retana MD at [facility] MAIN OR ??? PRO CABG, ARTERY-VEIN, TWO N/A 07/07/2017 @CABG, TWO VENOUS GRAFTS & ARTERIAL GRAFT (WRVU 7.93) performed by Yuan Retana MD at [facility] MAIN OR ??? PRO COLONOSCOPY, REMV LESN, SNARE 01/16/2014 COLONOSCOPY, POLYPECTOMY, REMOVAL LESION BY SNARE performed by Nohemi Jaimes MD at [facility] ENDOSCOPY ??? PRO ENDOSCOPY W/VIDEO-ASST VEIN HARVEST, CABG Right 07/07/2017 ENDOSCOPIC HARVEST VEIN(S) FOR CABG (WRVU 0.31) performed by Yuan Retana MD at [facility] MAIN OR ??? PRO THYROIDECTOMY 03/28/2013 THYROIDECTOMY, TOTAL OR COMPLETE performed by Manny Mcknight MD at [facility] MAIN OR Functional Status/Social Hx: [...] left blue toes with CTA showing R CASTER HELPER pseudoaneurysm (now thrombosed) and occluded ATs [...] 2.5x80 5. Completion RLE angiogram 6. L CASTER HELPER angiogram 7. 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 - L CASTER HELPER angriogram demonstrated: High femoral bifurcation over the proximal half of the femoral head. L CASTER HELPER access in the distal L CASTER HELPER. - Closure device: Mynx Technical Procedure: [...] for a 45cm 5F Destination. V18 and [place] and QuickCross catheters were used to select [...] 5F. A stationed picture of the L CASTER HELPER was performed as the patient was noted to have a very high bifurcation. Access appeared in the distal R CASTER HELPER. Closure and sheath removal was performed [...] PM EST 1440 report called to 5 [place] nurse Tessa RN documented in this encounter [...] sit/sit to supine -- Bed Mobility Goal, [place] Level independent -- Bed Mobility Goal, Date [...] days -- Transfer Training Goal, Activity Type pej-xk-nsqcr/znbem-ep-pca -- Transfer Train Goal, [place] Level conditional independence -- Transfer Train Goal, [...] call cabello within reach, Hourly rounding by RN/SASH FINISHER. Bed alarm / Chair alarm. Patient-specific fall [...] Smith MD - 08/15/2017 6:28 PM EST [facility] Operative Note Patient Name: Gregory Hoang : [id number] MR#: [id number] Case Date: 08/09/2017 Surgeon: Surgeon(s) and Role: [...] 2.5x80 5. Completion RLE angiogram 6. L CASTER HELPER angiogram 7. Mynx closure Precautions/Restrictions: fall, [...] feet/ bed -> bathroom). Anticipated Discharge Disposition: jail facility, other (see comments) (or swing bed) Pager: [phone] BASSAM ELIAS, PT 08/14/2017 Inpatient Physical Therapy [...] to Achieve by discharge Gait Training Goal, [place] Level conditional independence;set up required Gait Training [...] HEALTHCARE. CM spoke with [facility] CM Drea Sandhu, VAMSI who said that they do not anticipate any beds over the weekend. Reviewed with patient/ that they need to be aware that patient will need to take the first bed offered at the facilities that they make referrals to. Their choices are: 1- [facility] PHONE: [phone] FAX: [phone] 2- [facility] ([facility]) [address] [place] [address] 3- [facility]) [address] [place] [address] I have discussed Medicare/Private [...] RS/CM on Wednesday to follow-up. Covering pager #[phone] for today. Plan of Care - Henrique [...] with additional findings of pseudoaneurysm on R CASTER HELPER and bilateral anterior tibial artery occlusions. [...] an outpatient once discharged. Have patient call [phone] to set up an appointment. Follow-up: Dermatology will sign-off for now. Please do not hesitate to contact us if you have any questions orconcerns. Impression and Recommendations discussed with primary team on 08/13/2017. Karo Henderson MD Resident in Dermatology Section of Dermatology, Department of Surgery [facility] Pager [phone] Patient seen and evaluated with staff Laboratory Technologist: Halima Cordero MD Section of Dermatology [facility] Level of Resident Supervision: Direct [...] Outcome: Ongoing (Interventions Implemented as Appropriate) 08/12/17 9036 Coping/Psychosocial Plan Of Care Reviewed With patient;spouse [...] 2.5x80 5. Completion RLE angiogram 6. L CASTER HELPER angiogram 7. Mynx closure Active Non-Hospital [...] home with home health ([facility] PT&OT) Pager: [phone] YASIR TELLO OT 08/12/2017 Occupational Therapy Rehabilitation [...] 2.5x80 5. Completion RLE angiogram 6. L CASTER HELPER angiogram 7. Mynx closure Past Medical [...] with 24/7 assistance and maximal services) Pager: [phone] NICHOLAS MORA, PT 08/12/2017 Physical Therapy Rehabilitation [...] sit/sit to supine -- Bed Mobility Goal, [place] Level independent -- Bed Mobility Goal, Outcome Achieved -- goal ongoing Goal: Gait Training Goal Stand Alone Therapy Goal Outcome: Ongoing (Interventions Implemented as Appropriate) 08/11/17 1310 08/12/17 1510 Gait Training Goal Gait Training Goal, Date Established 08/11/17 -- Gait Training Goal, Time to Achieve 5 - 7 days -- Gait Training Goal, [place] Level conditional independence -- Gait Training Goal, [...] days -- Transfer Training Goal, Activity Type txo-ho-glmux/lregu-os-gbk -- Transfer Train Goal, [place] Level conditional independence -- Transfer Training Goal, [...] Smith MD - 08/11/2017 2:52 PM EST [facility] Operative Note Patient Name: Gregory Hoang : [id number] MR#: [id number] Case Date: 08/11/2017 Surgeon: Surgeon(s) and Role: [...] 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 Completion RLE angiogram 6. L CASTER HELPER angiogram 7. Mynx closure He is [...] Anticipated Discharge Disposition: inpatient rehabilitation facility Pager: [phone] LAWRENCE GONZALEZ, PT 08/11/2017 Physical Therapy Rehabilitation [...] to sit/sit to supine Bed Mobility Goal, [place] Level independent Goal: Gait Training Goal Stand Alone Therapy Goal Outcome: Ongoing (Interventions Implemented as Appropriate) 08/11/17 1310 Gait Training Goal Gait Training Goal, Date Established 08/11/17 Gait Training Goal, Time to Achieve 5 - 7 days Gait Training Goal, [place] Level conditional independence Gait Training Goal, Assist [...] 7 days Transfer Training Goal, Activity Type dpj-ou-pwnma/cubbm-tb-uud Transfer Train Goal, [place] Level conditional independence Plan of David DelloAnnetta [...] call cabello within reach, Hourly rounding by RN/SASH FINISHER. Bed alarm / Chair alarm. ? Patient-specific [...] 04/05/2013 Hospitalizations Within the Past 30 Days: [facility] 07/20/2017 Anticipated Length Of Stay (If known): Expected Length of Hospitalization: 5-7 days2-3 days Current Decision-Making Capacity: Alert and oriented x 4 Advance Care Planning: on file Kisha Hoang [facility] [phone] Current Coping/Education/Information Needs: pt and spouse state [...] Health/Prescription Coverage: Primary Insurance: MEDICARE Secondary Insurance: [place] Prescription Coverage: See above Preferred Pharmacy: [facility] Other: N/A Primary Care Provider: Lovely Vicente MD [phone] Patient/Caregiver Goals of Treatment: Patient plans to [...] of care planning. Kaitlin Saha RN Pager: [phone] Plan of Care - Melba Jaramillo RN [...] Overview Goal: Plan of Care Review 08/08/17 4624 Coping/Psychosocial Plan Of Care Reviewed With patient [...] call cabello within reach, Hourly rounding by RN/SASH FINISHER. Bed alarm / Chair alarm. Patient-specific fall prevention interventions for sensory deficits provided, if applicable: [X] Yes CPG GOAL OUTCOME EVALUATION: Goal: Fall Prevention-Safe Patient Handling Outcome: Ongoing (Interventions Implemented as Appropriate) 08/06/17 1700 08/06/17199908/07/17 9024 Positioning Body Position -- up in chair [...] at bedside and MD TEAM Carrying pager [phone] contacted (via Radio page) and notified of [...] Vitaliy Nobles MD [facility] ER DR CARDIOLOGY [place], [place] 0[address] (Wo rk) documented as of [...] section. TYPE AND SCREEN Routine 08/09/2017 1:10 ([facility]/CGP/SHANDA) AM EST BASIC METABOLIC PANEL Routine 08/09/2017 [...] Signature POC Glucose 160 65 - 199 [facility] mg/dL [facility] Comment: Supplemental [...] City/State/ZIP [place] [address] (ABNORMAL) Differential, Automated (08/16/2017 5:08 AM EST) Patholo gist Method Time Signature Neutrophils % 73.9 % [facility] Neutr Abs (ANC) 5.37 1.70 - [facility] 6.10 [facility] x10(3)/[facility] LABORATORY Lymphocytes % 10.1 % [facility] Lymphocytes Abs 0.7 (L) 0.9 - 3.2 [facility] x10(3)/[facility] LABORATORY Monocytes % 10.1 % [facility] Monocyte Abs 0.7 0.3 - 0.9 [facility] x10(3)/[facility] LABORATORY Eosinophils % 5.1 % [facility] Eosinophils Abs 0.4 0.0 - 0.4 [facility] x10(3)/[facility] LABORATORY Basophils % 0.4 % [facility] Basophils Abs 0.0 0.0 - 0.1 [facility] x10(3)/[facility] LABORATORY Immature Gran % 0.40 [...] Melisa Gran Abs 0.03 0.00 - 0.04 x10(3)/[facility] MAR Y [facility]OR[facility]ORY Specimen Anatomical Collection Method Collection Time Receive d Time (Source) Location / / Volume Laterality Blood specimen 08/16/2017 5:08 AM 018 5:20 (specimen) EST AM EST Resulting Agency Comment Spec In Lab Yonathan Smith MD HEMATOLOGY ORDERABLES Performing Organization Address City/State/ZIP Code Phon e Number [place] [id number] (ABNORMAL) Hemogram (08/16/2017 5:08 AM EST) Analysis Performed At Patho logist Time Signature WBC 7.3 4.0 - 9.5 [facility] x10(3)/[facility] LABORATORY RBC 3.36 (L) 4.58 - [facility] 5.54 [facility] x10(6)/[facility] LABORATORY Hemoglobin 9.7 (L) 13.7 - [facility] 16.[facility] gm/dL [facility] Hematocrit 30.3 (L) 40.5 - [facility] 48.5 % [facility] MCV 90.2 82.9 - [facility] 93.1 fL [facility] MCH 28.9 27.5 - [facility] 32.1 pg [facility] MCHC 32.0 32.0 - [facility] 35.7 gm/dL [facility] Platelets 282 145 - 357 [facility](3[facility] LABORATORY RDWSD 53.9 (H) 36.0 - [place] 45.0 [facility] LABORATORY RDWCV 16.5 (H) 11.4 - [facility] 13.8 % [facility] MPV 9.0 7.6 - 12.9 [facility] LABORATORY nRBC % Auto 0.0 % [facility] nRBC Abs Auto 0.000 0.000 - [facility] 0.000 [facility] x10(3)/[facility] LABORATORY Specimen Anatomical Collection Method Collection Time Receive d Time (Source) Location / / Volume Laterality Blood specimen 08/16/2017 5:08 AM 018 5:20 (specimen) EST AM EST Resulting Agency Comment Spec In Lab Yonathan Smith MD HEMATOLOGY ORDERABLES Performing Organization Address City/State/ZIP [place] [address] (ABNORMAL) Basic Metabolic Panel (non-fasting) (08/16/2017 5:08 AM EST) P athologist Signature Glucose Lvl 141 65 - 199 [facility] mg/dL [facility] Comment: Diabetes: >=200 mg/dL plus symp toms BUN 29 (H) 10 - 20 mg/dL [facility] Creatinine 1.25 0.80 - 1.50 mg/dL [facility] Sodium 140 135 - 145 mmol/L [facility] Potassium 4.5 3.5 - 5.0 mmol/L [facility] Comment: Please note: ??Patients with WBC >100,00 0 may have falsely elevated Potassium levels. ??For accurate Potassium quantif ication in these patients send serum separator tube (gold top) for subsequent determinations. ??Contact the Clinical Chemistry Laboratory if there are any qu estions. Chloride 99 98 - 107 mmol/L [facility] CO2 28 22 - 31 mmol/L [facility] Anion Gap 13 5 - 15 mmol/L [facility] Calcium 8.7 8.5 - 10.5 mg/dL [facility] Estimated GFR 57 (L) >=60 [facility] Comment: The reported eGFR should be multiplied b y 1.2 for patients. The MDRD is not an appropriate measure o f renal function for patients with body mass extremes or in patients with acute kidney failure. http://Ynvisible/DHnkdep http://Ynvisible/DHMCnkf Specimen Anatomical Collection Method Collection Time Receive d Time (Source) Location / / Volume Laterality Blood specimen 08/16/2017 5:08 AM 018 5:20 (specimen) EST AM EST Resulting Agency Comment Spec In Lab Yonathan Smith MD CHEMISTRY ORDERABLES Performing Organization Address [facility] [place] [address] (ABNORMAL) Prothrombin Time (08/16/2017 5:08 AM EST) P athologist Signature PT 25.2 (H) 11.8 - 14.0 [facility] LABORATORY INR 2.3 (H) 0.9 - 1.1 [facility] [...] Smith MD HEMATOLOGY ORDERABLES Performing Organization Address [facility] [place] [address] POCT Glucose (08/16/2017 4:09 AM EST) athologist Signature POC Glucose 147 65 - 199 [place] mg/dL [facility] Comment: Supplemental ranges: <140 mg/dL before meals <180 mg/dL all other times of the day Specimen Anatomical Collection Method Collection Time Receive d Time (Source) Location / / Volume Laterality Blood specimen 08/16/2017 4:09 AM 018 4:09 (specimen) EST AM EST Yonathan Smith MD POINT OF CARE TEST ORDERABLE S Performing Organization Address City/State/[place] [address] POCT Glucose (08/15/2017 11:56 PM EST) athologist Signature POC Glucose 176 65 - 199 [place] mg/dL [facility] Comment: Supplemental ranges: <140 mg/dL before meals <180 mg/dL all other times of the day Specimen Anatomical Collection Method Collection Time Receive d Time (Source) Location / / Volume Laterality Blood specimen 08/15/2017 11:56 8 (specimen) PM EST 11:56 PM EST Yonathan Smith MD POINT OF CARE TEST ORDERABLE S Performing Organization Address City/State/[place] [address] POCT Glucose (08/15/2017 8:05 PM EST) athologist Signature POC Glucose 136 65 - 199 [place] mg/dL [facility] Comment: Supplemental ranges: <140 mg/dL before meals <180 mg/dL all other times of the day Specimen Anatomical Collection Method Collection Time Receive d Time (Source) Location / / Volume Laterality Blood specimen 08/15/2017 8:05 PM 018 8:05 (specimen) EST PM EST Yonathan Smith MD POINT OF CARE TEST ORDERABLE S Performing Organization Address City/State/ZIP Code Phon e Number [address] (ABNORMAL) POCT Glucose (08/15/2017 4:50 PM EST) athologist Signature POC Glucose 232 (H) 65 - 199 [place] mg/dL [facility] Comment: Supplemental ranges: <140 mg/dL before meals <180 mg/dL all other times of the day Specimen Anatomical Collection Method Collection Time Receive d Time (Source) Location / / Volume Laterality Blood specimen 08/15/2017 4:50 PM 018 4:50 (specimen) EST PM EST Yonathan Smith MD POINT OF CARE TEST ORDERABLE S Performing Organization Address City/State/ZIP Code Phon e Number [address] POCT Glucose (08/15/2017 12:04 PM EST) athologist Signature POC Glucose 135 65 - 199 [facility] Comment: Supplemental ranges: <140 mg/dL before meals <180 mg/dL all other times of the day Specimen Anatomical Collection Method Collection Time Receive d Time (Source) Location / / Volume Laterality Blood specimen 08/15/2017 12:04 8 (specimen) PM EST 12:04 PM EST Yonathan Smith MD POINT OF CARE TEST ORDERABLE S Performing Organization Address City/[facility]/ZIP Code Phon e Number [address] POCT Glucose (08/15/2017 7:36 AM EST) athologist Signature POC Glucose 124 65 - 199 [facility] Comment: Supplemental ranges: <140 mg/dL before meals <180 mg/dL all other times of the day Specimen Anatomical Collection Method Collection Time Receive d Time (Source) Location / / Volume Laterality Blood specimen 08/15/2017 7:36 AM 018 7:36 (specimen) EST AM EST Yonathan Smith MD POINT OF CARE TEST ORDERABLE S Performing Organization Address City/[facility]/ZIP Code Phon e Number [address] (ABNORMAL) Differential, Automated (08/15/2017 6:22 AM EST) [facility] gist Method Time Signature Neutrophils % 76.1 % [facility] Neutr Abs (ANC) 6.62 (H) 1.70 - [facility] 6.10 [facility] x10(3)/[facility] L LABORATORY Lymphocytes % 9.3 % [facility] Lymphocytes Abs 0.8 (L) 0.9 - 3.2 [facility] x10(3)/[facility] LABORATORY Monocytes % 9.4 % [facility] Monocyte Abs 0.8 0.3 - 0.9 [facility] x10(3)/[facility] LABORATORY Eosinophils % 4.0 % [facility] Eosinophils Abs 0.4 0.0 - 0.4 [facility] x10(3)/[facility] LABORATORY Basophils % 0.6 % [facility] Basophils Abs 0.0 0.0 - 0.1 [place] 263560(3)/[facility] LABORATORY Immature Gran % 0.60 % [...] Gran Abs 0.05 (H) 0.00 - 0.04 x10(3)/[facility] LABORATORY Specimen Anatomical Collection Method Collection Time Receive d Time (Source) Location / / Volume Laterality Blood specimen 08/15/2017 6:22 AM 018 6:33 (specimen) EST AM EST Resulting Agency Comment Spec In Lab Yonathan Smith MD HEMATOLOGY ORDERABLES Performing Organization Address City/State/ZIP [place] [address] (ABNORMAL) Hemogram (08/15/2017 6:22 AM EST) Analysis Performed At Patho logist Time Signature WBC 8.7 4.0 - 9.5 [facility] x10(3)/[facility] LABORATORY RBC 3.21 (L) 4.58 - [facility] 5.54 [facility] x10(6)/[facility] LABORATORY Hemoglobin 9.1 (L) 13.7 - [place] 16.5 gm/dL [facility] Hematocrit 29.0 (L) 40.5 - [facility] 48.5 % [facility] MCV 90.3 82.9 - [facility] 93.1 [facility] LABORATORY MCH 28.3 27.5 - [facility] 32.1 pg [facility] MCHC 31.4 (L) 32.0 - [facility] 35.7 gm/dL [facility] Platelets 254 145 - 357 [facility] x10(3)/[facility] LABORATORY RDWSD 53.9 (H) 36.0 - [facility] 45.0 [facility] LABORATORY RDWCV 16.3 (H) 11.4 - [facility] 13.8 % [facility] MPV 8.8 7.6 - 12.9 [facility] LABORATORY nRBC % Auto 0.0 % [facility] nRBC Abs Auto 0.000 0.000 - [facility] 0.000 [facility] x10(3)/[facility] LABORATORY Specimen Anatomical Collection Method Collection Time Receive d Time (Source) Location / / Volume Laterality Blood specimen 08/15/2017 6:22 AM 018 6:33 (specimen) EST AM EST Resulting Agency Comment Spec In Lab Yonathan Smith MD HEMATOLOGY ORDERABLES Performing Organization Address City/State/[place] [address] (ABNORMAL) Basic Metabolic Panel (non-fasting) (08/15/2017 6:22 AM EST) athologist Signature Glucose Lvl 118 65 - 199 [facility] mg/dL [facility] Comment: Diabetes: >=200 mg/dL plus symp toms BUN 27 (H) 10 - 20 mg/dL [facility] Creatinine 1.12 0.80 - 1.50 mg/dL [facility] Sodium 138 135 - 145 mmol/L [facility] mmol/L [facility] Anion Gap 11 5 - 15 mmol/L [facility] Calcium 8.8 8.5 - 10.5 mg/dL [facility] Estimated GFR >60 >=60 [facility] Comment: The reported eGFR should be multiplied b y 1.2 for patients. The MDRD is not an appropriate measure o f renal function for patients with body mass extremes or in patients with acute kidney failure. http://Ynvisible/DHnkdep http://Ynvisible/DHMCnkf Specimen Anatomical Collection Method Collection Time Receive d Time (Source) Location / / Volume Laterality Blood specimen 08/15/2017 6:22 AM 018 6:33 (specimen) EST AM EST Resulting Agency Comment Spec In Lab Yonathan Smith MD CHEMISTRY ORDERABLES Performing Organization Address City/State/ZIP Code Phon e Number [place] [id number] (ABNORMAL) Prothrombin Time (08/15/2017 6:22 AM EST) athologist Signature PT 21.9 (H) 11.8 - 14.0 [facility] LABORATORY INR 1.9 (H) 0.9 - 1.1 [facility] [...] Smith MD HEMATOLOGY ORDERABLES Performing Organization Address City/[facility]/ZIP Code Phon e Number [address] POCT Glucose (08/15/2017 4:33 AM EST) athologist Signature POC Glucose 164 65 - 199 [place] mg/dL [facility] Comment: Supplemental ranges: <140 mg/dL before meals <180 mg/dL all other times of the day Specimen Anatomical Collection Method Collection Time Receive d Time (Source) Location / / Volume Laterality Blood specimen 08/15/2017 4:33 AM 018 4:33 (specimen) EST AM EST Yonathan Smith MD POINT OF CARE TEST ORDERABLE S Performing Organization Address City/[facility]/ZIP Code Phon e Number [address] POCT Glucose (08/15/2017 12:12 AM EST) athologist Signature POC Glucose 89 65 - 199 [place] mg/dL [facility] Comment: Supplemental ranges: <140 mg/dL before meals <180 mg/dL all other times of the day Specimen Anatomical Collection Method Collection Time Receive d Time (Source) Location / / Volume Laterality Blood specimen 08/15/2017 12:12 8 (specimen) AM EST 12:12 AM EST Yonathan Smith MD POINT OF CARE TEST ORDERABLE S Performing Organization Address City/[facility]/ZIP Code Phon e Number [address] (ABNORMAL) POCT Glucose (08/14/2017 8:07 PM EST) athologist Signature POC Glucose 204 (H) 65 - 199 [facility] mg/dL [facility] Comment: Supplemental ranges: <140 mg/dL before meals <180 mg/dL all other times of the day Specimen Anatomical Collection Method Collection Time Receive d Time (Source) Location / / Volume Laterality Blood specimen 08/14/2017 8:07 PM 018 8:07 (specimen) EST PM EST Yonathan Smith MD POINT OF CARE TEST ORDERABLE S Performing Organization Address City/State/ZIP Code Phon e Number [address] POCT Glucose (08/14/2017 5:11 PM EST) athologist Signature POC Glucose 174 65 - 199 [facility] mg/dL [facility] Comment: Supplemental ranges: <140 mg/dL before meals <180 mg/dL all other times of the day Specimen Anatomical Collection Method Collection Time Receive d Time (Source) Location / / Volume Laterality Blood specimen 08/14/2017 5:11 PM 018 5:11 (specimen) EST PM EST Yonathan Smith MD POINT OF CARE TEST ORDERABLE S Performing Organization Address City/[facility]/ZIP Code Phon e Number [address] POCT Glucose (08/14/2017 12:10 PM EST) athologist Signature POC Glucose 141 65 - 199 [place] mg/dL [facility] Comment: Supplemental ranges: <140 mg/dL before meals <180 mg/dL all other times of the day Specimen Anatomical Collection Method Collection Time Receive d Time (Source) Location / / Volume Laterality Blood specimen 08/14/2017 12:10 8 (specimen) PM EST 12:10 PM EST Yonathan Smith MD POINT OF CARE TEST ORDERABLE S Performing Organization Address City/State/[place] [address] POCT Glucose (08/14/2017 8:07 AM EST) athologist Signature POC Glucose 158 65 - 199 [place] mg/dL [facility] Comment: Supplemental ranges: <140 mg/dL before meals <180 mg/dL all other times of the day Specimen Anatomical Collection Method Collection Time Receive d Time (Source) Location / / Volume Laterality Blood specimen 08/14/2017 8:07 AM 018 8:07 (specimen) EST AM EST Yonathan Smith MD POINT OF CARE TEST ORDERABLE S Performing Organization Address City/State/ZIP Code Phon e Number [place] [id number] [facility] LABORATORY Drive (ABNORMAL) Differential, Automated (08/14/2017 4:52 AM EST) [facility] Method Time Signature Neutrophils % 78.6 % [facility] Neutr Abs (ANC) 7.70 (H) 1.70 - [facility] 6.10 [facility] x10(3)/[facility] L LABORATORY Lymphocytes % 7.8 % [facility] Lymphocytes Abs 0.8 (L) 0.9 - 3.2 [facility] x10(3)/[facility] LABORATORY Monocytes % 8.8 % [facility] Monocyte Abs 0.9 0.3 - 0.9 [facility] x10(3)/[facility] LABORATORY Eosinophils % 4.0 % [facility] Eosinophils Abs 0.4 0.0 - 0.4 [facility] x10(3)/[facility] LABORATORY Basophils % 0.5 % [facility] Basophils Abs 0.0 0.0 - 0.1 [facility] x10(3)/[facility] LABORATORY Immature Gran % 0.30 % [...] 0.00 - 0.04 x10(3)/[facility] Specimen Anatomical Collection Method Collection Time Receive d Time (Source) Location / / Volume Laterality Blood specimen 08/14/2017 4:52 AM 018 5:08 (specimen) EST AM EST Resulting Agency Comment Spec In Lab Yonathan Smith MD HEMATOLOGY ORDERABLES Performing Organization Address City/State/ZIP [place] [address] (ABNORMAL) Hemogram (08/14/2017 4:52 AM EST) Analysis Performed At Patho logist Time Signature WBC 9.8 (H) 4.0 - 9.5 [facility] x10(3)/[facility] LABORATORY RBC 3.32 (L) 4.58 - [facility] 5.54 [facility] x10(6)/[facility] LABORATORY Hemoglobin 9.5 (L) 13.7 - [facility] 16.5 gm/dL [facility] Hematocrit 30.3 (L) 40.5 - [facility] 48.5 % [facility] MCV 91.3 82.9 - [facility] 93.1 [facility] LABORATORY MCH 28.6 27.5 - [facility] 32.1 pg [facility] MCHC 31.4 (L) 32.0 - [facility] 35.7 gm/dL [facility] Platelets 263 145 - 357 [facility] x10(3)/[facility] LABORATORY RDWSD 54.8 (H) 36.0 - [facility] 45.0 [facility] LABORATORY RDWCV 16.5 (H) 11.4 - [facility] 13.8 % [facility] MPV 9.1 7.6 - 12.9 [facility] LABORATORY nRBC % Auto 0.0 % [facility] nRBC Abs Auto 0.000 0.000 - [facility] 0.000 [facility] x10(3)/[facility] LABORATORY Specimen Anatomical Collection Method Collection Time Receive d Time (Source) Location / / Volume Laterality Blood specimen 08/14/2017 4:52 AM 018 5:08 (specimen) EST AM EST Resulting Agency Comment Spec In Lab Yonathan Smith MD HEMATOLOGY ORDERABLES Performing Organization Address City/State/ZIP [place] [address] (ABNORMAL) Prothrombin Time (08/14/2017 4:52 AM EST) P athologist Signature PT 18.8 (H) 11.8 - 14.0 [facility] [...] Organization Address City/State/ZIP Code Phon e Number [place] [id number] (ABNORMAL) Basic Metabolic Panel (non-fasting) (08/14/2017 4:52 AM EST) athologist Signature Glucose Lvl 135 65 - 199 [facility] mg/dL [facility] Comment: Diabetes: >=200 mg/dL plus symp toms BUN 25 (H) 10 - 20 mg/dL [facility] Creatinine 1.36 0.80 - 1.50 mg/dL [facility] Sodium 141 135 - 145 mmol/L [facility] Potassium 4.8 3.5 - 5.0 mmol/L [facility] [...] LABORATORY Calcium 8.5 8.5 - 10.5 mg/dL [facility] Estimated GFR 52 (L) >=60 [facility] Comment: The reported eGFR should be multiplied b y 1.2 for patients. The MDRD is not an appropriate measure o f renal function for patients with body mass extremes or in patients with acute kidney failure. http://Ynvisible/DHnkdep http://Ynvisible/DHMCnkf Specimen Anatomical Collection Method Collection Time Receive d Time (Source) Location / / Volume Laterality Blood specimen 08/14/2017 4:52 AM 018 5:08 (specimen) EST AM EST Resulting Agency Comment Spec In Lab Yonathan Smith MD CHEMISTRY ORDERABLES Performing Organization Address City/[facility]/ZIP [facility] Phon e Number [address] POCT Glucose (08/14/2017 3:56 AM EST) athologist Signature POC Glucose 135 65 - 199 [facility] Comment: Supplemental ranges: <140 mg/dL before meals <180 mg/dL all other times of the day Specimen Anatomical Collection Method Collection Time Receive d Time (Source) Location / / Volume Laterality Blood specimen 08/14/2017 3:56 AM 018 3:56 (specimen) EST AM EST Yonathan Smith MD POINT OF CARE TEST ORDERABLE S Performing Organization Address City/[facility]/ZIP Code Phon e Number [address] POCT Glucose (08/13/2017 11:13 PM EST) athologist Signature POC Glucose 118 65 - 199 [facility] Comment: Supplemental ranges: <140 mg/dL before meals <180 mg/dL all other times of the day Specimen Anatomical Collection Method Collection Time Receive d Time (Source) Location / / Volume Laterality Blood specimen 08/13/2017 11:13 8 (specimen) PM EST 11:13 PM EST Yonathan Smith MD POINT OF CARE TEST ORDERABLE S Performing Organization Address City/[facility]/[place] [address] (ABNORMAL) POCT Glucose (08/13/2017 8:08 PM EST) athologist Signature POC Glucose 204 (H) 65 - 199 [facility] RYAN mg/dL [facility] Comment: Supplemental ranges: <140 mg/dL before meals <180 mg/dL all other times of the day Specimen Anatomical Collection Method Collection Time Receive d Time (Source) Location / / Volume Laterality Blood specimen 08/13/2017 8:08 PM 018 8:08 (specimen) EST PM EST Yonathan Smith MD POINT OF CARE TEST ORDERABLE S Performing Organization Address City/State/[place] [address] POCT Glucose (08/13/2017 4:02 PM EST) athologist Signature POC Glucose 145 65 - 199 [facility]dL [facility] Comment: Supplemental ranges: <140 mg/dL before meals <180 mg/dL all other times of the day Specimen Anatomical Collection Method Collection Time Receive d Time (Source) Location / / Volume Laterality Blood specimen 08/13/2017 4:02 PM 018 4:02 (specimen) EST PM EST Yonathan Smith MD POINT OF CARE TEST ORDERABLE S Performing Organization Address City/State/[place] [address] POCT Glucose (08/13/2017 11:31 AM EST) athologist Signature POC Glucose 179 65 - 199 [place] mg/dL [facility] Comment: Supplemental ranges: <140 mg/dL before meals <180 mg/dL all other times of the day Specimen Anatomical Collection Method Collection Time Receive d Time (Source) Location / / Volume Laterality Blood specimen 08/13/2017 11:31 8 (specimen) AM EST 11:31 AM EST Yonathan Smith MD POINT OF CARE TEST ORDERABLE S Performing Organization Address City/State/[place] [address] (ABNORMAL) POCT Glucose (08/13/2017 10:16 AM EST) P athologist Signature POC Glucose 211 (H) 65 - 199 [facility] mg/dL [facility] Comment: Supplemental [...] City/State/ZIP [place] [address] JULIAN, legs, multiple levels (08/13/2017 7:42 AM EST) Component Value Ref Test Analysis Performed At Patholo gist Range Method Time Signature VB Text Department: Vascular Surgery Lab VASCUBASE Report Patient: [id number] (GREGORY HOANG) CPT: 14412 ICD10: I99.8 Referring Physician: YONATHAN SMITH ?? Indications: s/p R 1,2,3 toe amps with red left foot, need n ew baseline Diabetes mellitus: yes ICD10 Diagnosis Code: I99.8 Findings: Right ?Pressure (mm Hg) ?? JULIAN ??Waveform ?TBI ?? Brachial Artery ?138 ? Dorsalis Pedis (Ankle) Arter y ?132 ? 0.94 ??[place]- Biphasic ? Posterior Tibial (Ankle) Art anila ??154 ? 1.10 ??[place]-Biphasic ? Fourth Toe ? 67 ? 0.48 [...] Signature POC Glucose 156 65 - 199 [facility] mg/dL [facility] Comment: Supplemental ranges: <140 mg/dL before meals <180 mg/dL all other times of the day Specimen Anatomical Collection Method Collection Time Receive d Time (Source) Location / / Volume Laterality Blood specimen 08/13/2017 7:33 AM 018 7:33 (specimen) EST AM EST Yonathan Smith MD POINT OF CARE TEST ORDERABLE S Performing Organization Address City/State/[place] [address] (ABNORMAL) Differential, Automated (08/13/2017 5:33 AM EST) Patholo gist Method Time Signature Neutrophils % 77.8 % [facility] Neutr Abs (ANC) 7.83 (H) 1.70 - [facility] 6.10 [facility] x10(3)/[facility] L LABORATORY Lymphocytes % 8.4 % [facility] Lymphocytes Abs 0.8 (L) 0.9 - 3.2 [facility] x10(3)/[facility] LABORATORY Monocytes % 8.3 % [facility] Monocyte Abs 0.8 0.3 - 0.9 [facility] x10(3)/[facility] LABORATORY Eosinophils % 4.6 % [facility] Eosinophils Abs 0.5 (H) 0.0 - 0.4 [facility] x10(3)/[facility] LABORATORY Basophils % 0.5 % [facility] Basophils Abs 0.0 0.0 - 0.1 [facility] x10(3)/[facility] LABORATORY Immature Gran % 0.40 % [...] Melisa Gran Abs 0.04 0.00 - 0.04 x10(3)/[facility] MAR Y [facility] LABORATORY Specimen Anatomical Collection Method Collection Time Receive d Time (Source) Location / / Volume Laterality Blood specimen 08/13/2017 5:33 AM 018 6:04 (specimen) EST AM EST Resulting Agency Comment Spec In Lab Yonathan Smith MD HEMATOLOGY ORDERABLES Performing Organization Address City/State/ZIP [place] [address] (ABNORMAL) Hemogram (08/13/2017 5:33 AM EST) Analysis Performed At Patho logist Time Signature WBC 10.1 (H) 4.0 - 9.5 [facility] x10(3)/[facility] LABORATORY RBC 3.21 (L) 4.58 - [facility] 5.54 [facility] x10(6)/[facility] LABORATORY Hemoglobin 9.2 (L) 13.7 - [facility] gm/dL [facility] Hematocrit 29.6 (L) 40.5 - [facility] 48.5 % [facility] MCV 92.2 82.9 - [facility] 93.1 fL [facility] MCH 28.7 27.5 - [facility] 32.1 pg [facility] MCHC 31.1 (L) 32.0 - BARBARA RYAN 35.7 gm/dL [facility] Platelets 263 145 - 357 [facility] x[facility](3[facility] LABORATORY RDWSD 54.8 (H) 36.0 - BARBARA DAVIS 45.0 [facility] LABORATORY RDWCV 16.4 (H) 11.4 - [facility] RYAN 13.8 % [facility] MPV 9.2 7.6 - 12.9 [facility] LABORATORY nRBC % Auto 0.0 % [facility] nRBC Abs Auto 0.000 0.000 - BARBARA DAVIS 0.000 [facility] x10(3)/[facility] LABORATORY Specimen Anatomical Collection Method Collection Time Receive d Time (Source) Location / / Volume Laterality Blood specimen 08/13/2017 5:33 AM 018 6:04 (specimen) EST AM EST Resulting Agency Comment Spec In Lab Yonathan Smith MD HEMATOLOGY ORDERABLES Performing Organization Address City/[facility]/[place] [address] (ABNORMAL) Prothrombin Time (08/13/2017 5:33 AM EST) P athologist Signature PT 17.3 (H) 11.8 - 14.0 [facility] LABORATORY INR 1.4 (H) 0.9 - 1.1 [facility] [...] Smith MD HEMATOLOGY ORDERABLES Performing Organization Address City/[facility]/[place] [address] (ABNORMAL) Basic Metabolic Panel (non-fasting) (08/13/2017 5:33 AM EST) athologist Signature Glucose Lvl 126 65 - 199 [facility] mg/dL [facility] Comment: Diabetes: >=200 mg/dL plus symp toms BUN 18 10 - 20 mg/dL [facility] Creatinine 1.16 0.80 - 1.50 mg/dL [facility] [...] Calcium 7.9 (L) 8.5 - 10.5 mg/dL [facility] Estimated GFR >60 >=60 [facility] Comment: The reported eGFR should be multiplied b y 1.2 for patients. The MDRD is not an appropriate measure o f renal function for patients with body mass extremes or in patients with acute kidney failure. http://[employer]/DHnkdep http://Ynvisible/DHMCnkf Specimen Anatomical Collection Method Collection Time Receive d Time (Source) Location / / Volume Laterality Blood specimen 08/13/2017 5:33 AM 018 6:04 (specimen) EST AM EST Resulting Agency Comment Spec In Lab Yonathan Smith MD CHEMISTRY ORDERABLES Performing Organization Address City/State/ZIP [place] [address] POCT Glucose (08/13/2017 4:29 AM EST) athologist Signature POC Glucose 111 65 - 199 BARBARA RYAN mg/dL [facility] Comment: Supplemental ranges: <140 mg/dL before meals <180 mg/dL all other times of the day Specimen Anatomical Collection Method Collection Time Receive d Time (Source) Location / / Volume Laterality Blood specimen 08/13/2017 4:29 AM 018 4:29 (specimen) EST AM EST Yonathan Smith MD POINT OF CARE TEST ORDERABLE S Performing Organization Address City/State/[place] [address] POCT Glucose (08/12/2017 11:28 PM EST) athologist Signature POC Glucose 164 65 - 199 BARBARA ZHAORYAN mg/dL [facility] Comment: Supplemental ranges: <140 mg/dL before meals <180 mg/dL all other times of the day Specimen Anatomical Collection Method Collection Time Receive d Time (Source) Location / / Volume Laterality Blood specimen 08/12/2017 11:28 8 (specimen) PM EST 11:28 PM EST Yonathan Smith MD POINT OF CARE TEST ORDERABLE S Performing Organization Address City/State/[place] [address] (ABNORMAL) POCT Glucose (08/12/2017 7:40 PM EST) athologist Signature POC Glucose 209 (H) 65 - 199 BARBARA ZHAORYAN mg/dL [facility] Comment: Supplemental ranges: <140 mg/dL before meals <180 mg/dL all other times of the day Specimen Anatomical Collection Method Collection Time Receive d Time (Source) Location / / Volume Laterality Blood specimen 08/12/2017 7:40 PM 018 7:40 (specimen) EST PM EST Yonathan Smith MD POINT OF CARE TEST ORDERABLE S Performing Organization Address City/State/ZIP Code Phon e Number [address] POCT Glucose (08/12/2017 4:24 PM EST) athologist Signature POC Glucose 161 65 - 199 BARBARA ZHAORYAN mg/dL [facility] Comment: Supplemental ranges: <140 mg/dL before meals <180 mg/dL all other times of the day Specimen Anatomical Collection Method Collection Time Receive d Time (Source) Location / / Volume Laterality Blood specimen 08/12/2017 4:24 PM 018 4:24 (specimen) EST PM EST Yonathan Smith MD POINT OF CARE TEST ORDERABLE S Performing Organization Address City/State/ZIP Code Phon e Number [address] POCT Glucose (08/12/2017 12:00 PM EST) athologist Signature POC Glucose 167 65 - 199 [facility] mg/dL [facility] Comment: Supplemental ranges: <140 mg/dL before meals <180 mg/dL all other times of the day Specimen Anatomical Collection Method Collection Time Receive d Time (Source) Location / / Volume Laterality Blood specimen 08/12/2017 12:00 8 (specimen) PM EST 12:00 PM EST Yonathan Smith MD POINT OF CARE TEST ORDERABLE S Performing Organization Address City/State/ZIP Code Phon e Number [address] POCT Glucose (08/12/2017 7:25 AM EST) athologist Signature POC Glucose 152 65 - 199 [facility] mg/dL [facility] Comment: Supplemental ranges: <140 mg/dL before meals <180 mg/dL all other times of the day Specimen Anatomical Collection Method Collection Time Receive d Time (Source) Location / / Volume Laterality Blood specimen 08/12/2017 7:25 AM 018 7:25 (specimen) EST AM EST Yonathan Smith MD POINT OF CARE TEST ORDERABLE S Performing Organization Address City/State/ZIP Code Phon e Number [address] (ABNORMAL) Differential, Automated (08/12/2017 6:29 AM EST) Patholo gist Method Time Signature Neutrophils % 78.7 % [facility] Neutr Abs (ANC) 7.94 (H) 1.70 - [facility] 6.10 [facility] x10(3)/[facility] L LABORATORY Lymphocytes % 8.8 % [facility] Lymphocytes Abs 0.9 0.9 - 3.2 [facility] x10(3)/[facility] LABORATORY Monocytes % 7.8 % [facility] Monocyte Abs 0.8 0.3 - 0.9 [facility] x10(3)/[facility] LABORATORY Eosinophils % 3.9 % [facility] Eosinophils Abs 0.4 0.0 - 0.4 [facility] x10(3)/[facility] LABORATORY Basophils % 0.3 % [facility] Basophils Abs 0.0 0.0 - 0.1 [facility] x10(3)/[facility] LABORATORY Immature Gran % 0.50 % [facility] Comment: Immature granulocytes(IG's)percentage an d absolute count will include metamyelocytes, myelocytes, and promyelo cytes. Blood smears from CBCs yielding IG's will be scanned manually for concor dance. If this scan disagrees with the automated IG or if promyelocytes are not ed, a manual differential will be performed. Melisa Gran Abs 0.05 (H) 0.00 - 0.04 x10(3)/[facility] LABORATORY Specimen Anatomical Collection Method Collection Time Receive d Time (Source) Location / / Volume Laterality Blood specimen 08/12/2017 6:29 AM 018 6:38 (specimen) EST AM EST Resulting Agency Comment Spec In Lab Yonathan Smith MD HEMATOLOGY ORDERABLES Performing Organization Address City/State/ZIP [place] [address] (ABNORMAL) Hemogram (08/12/2017 6:29 AM EST) Analysis Performed At Patho logist Time Signature WBC 10.1 (H) 4.0 - 9.5 [facility] x10(3)/[facility] LABORATORY RBC 3.02 (L) 4.58 - [facility] 5.54 [facility] x10(6)/[facility] LABORATORY Hemoglobin 8.7 (L) 13.7 - [facility] 16.5 gm/dL [facility] Hematocrit 28.1 (L) 40.5 - BARBARA RYAN 48.5 % [facility] MCV 93.0 82.9 - [facility] 93.1 [facility] LABORATORY MCH 28.8 27.5 - [facility] 32.1 pg [facility] MCHC 31.0 (L) 32.0 - BARBARA OLIVASCK 35.7 gm/dL [facility] Platelets 223 145 - 357 [facility] x10(3)/[facility] LABORATORY RDWSD 56.1 (H) 36.0 - [place] RYAN 45.0 [facility] LABORATORY RDWCV 16.4 (H) 11.4 - [facility] RYAN 13.8 % [facility] MPV 9.0 7.6 - 12.9 [facility] LABORATORY nRBC % Auto 0.0 % [facility] nRBC Abs Auto 0.000 0.000 - [facility] RYAN 0.000 [facility] x10(3)/[facility] LABORATORY Specimen Anatomical Collection Method Collection Time Receive d Time (Source) Location / / Volume Laterality Blood specimen 08/12/2017 6:29 AM 018 6:38 (specimen) EST AM EST Resulting Agency Comment Spec In Lab Yonathan Smith MD HEMATOLOGY ORDERABLES Performing Organization Address City/State/ZIP [place] [address] (ABNORMAL) Prothrombin Time (08/12/2017 6:29 AM EST) P athologist Signature PT 16.1 (H) 11.8 - 14.0 [facility] [...] City/State/ZIP [place] [address] (ABNORMAL) Basic Metabolic Panel (non-fasting) (08/12/2017 6:29 AM EST) athologist Signature Glucose Lvl 151 65 - 199 [facility] mg/dL [facility] Comment: Diabetes: >=200 mg/dL plus symp toms BUN 18 10 - 20 mg/dL [facility] Creatinine 1.11 0.80 - 1.50 mg/dL [facility] Sodium 138 135 - 145 mmol/L [facility] [...] estions. Chloride 99 98 - 107 mmol/L [facility] CO2 28 22 - 31 mmol/L [facility] Anion Gap 11 5 - 15 mmol/L [facility] Calcium 7.9 (L) 8.5 - 10.5 mg/dL [facility] Estimated GFR >60 >=60 [facility] Comment: The reported eGFR should be multiplied b y 1.2 for patients. The MDRD is not an appropriate measure o f renal function for patients with body mass extremes or in patients with acute kidney failure. http://Ynvisible/DHnkdep http://[employer]/DHMCnkf Specimen Anatomical Collection Method Collection Time Receive d Time (Source) Location / / Volume Laterality Blood specimen 08/12/2017 6:29 AM 018 6:38 (specimen) EST AM EST Resulting Agency Comment Spec In Lab Yonathan Smith MD CHEMISTRY ORDERABLES Performing Organization Address City/State/ZIP Code Phon e Number [address] POCT Glucose (08/12/2017 4:08 AM EST) P athologist Signature POC Glucose 181 65 - 199 [facility] mg/dL [facility] Comment: Supplemental ranges: <140 mg/dL before meals <180 mg/dL all other times of the day Specimen Anatomical Collection Method Collection Time Receive d Time (Source) Location / / Volume Laterality Blood specimen 08/12/2017 4:08 AM 018 4:08 (specimen) EST AM EST Yonathan Smith MD POINT OF CARE TEST ORDERABLE S Performing Organization Address City/[facility]/[place] [address] (ABNORMAL) POCT Glucose (08/12/2017 12:17 AM EST) P athologist Signature POC Glucose 221 (H) 65 - 199 [facility] mg/dL [facility] Comment: Supplemental ranges: <140 mg/dL before meals <180 mg/dL all other times of the day Specimen Anatomical Collection Method Collection Time Receive d Time (Source) Location / / Volume Laterality Blood specimen 08/12/2017 12:17 8 (specimen) AM EST 12:17 AM EST Yonathan Smith MD POINT OF CARE TEST ORDERABLE S Performing Organization Address City/State/[place] [address] (ABNORMAL) POCT Glucose (08/11/2017 8:52 PM EST) P athologist Signature POC Glucose 221 (H) 65 - 199 [facility] mg/dL [facility] Comment: Supplemental ranges: <140 mg/dL before meals <180 mg/dL all other times of the day Specimen Anatomical Collection Method Collection Time Receive d Time (Source) Location / / Volume Laterality Blood specimen 08/11/2017 8:52 PM 018 8:52 (specimen) EST PM EST Yonathan Smith MD POINT OF CARE TEST ORDERABLE S Performing Organization Address City/[facility]/[place] [address] POCT Glucose (08/11/2017 5:59 PM EST) athologist Signature POC Glucose 169 65 - 199 BARBARA ZHAORYAN mg/dL [facility] Comment: Supplemental ranges: <140 mg/dL before meals <180 mg/dL all other times of the day Specimen Anatomical Collection Method Collection Time Receive d Time (Source) Location / / Volume Laterality Blood specimen 08/11/2017 5:59 PM 018 5:59 (specimen) EST PM EST Yonathan Smith MD POINT OF CARE TEST ORDERABLE S Performing Organization Address City/[facility]/[place] [address] (ABNORMAL) POCT Glucose (08/11/2017 4:08 PM EST) athologist Signature POC Glucose 240 (H) 65 - 199 BARBARA RYAN mg/dL [facility] Comment: Supplemental ranges: <140 mg/dL before meals <180 mg/dL all other times of the day Specimen Anatomical Collection Method Collection Time Receive d Time (Source) Location / / Volume Laterality Blood specimen 08/11/2017 4:08 PM 018 4:08 (specimen) EST PM EST Yonathan Smith MD POINT OF CARE TEST ORDERABLE S Performing Organization Address City/[facility]/[place] [address] POCT Glucose (08/11/2017 12:04 PM EST) athologist Signature POC Glucose 182 65 - 199 BARBARA ZHAORYAN mg/dL [facility] Comment: Supplemental ranges: <140 mg/dL before meals <180 mg/dL all other times of the day Specimen Anatomical Collection Method Collection Time Receive d Time (Source) Location / / Volume Laterality Blood specimen 08/11/2017 12:04 8 (specimen) PM EST 12:04 PM EST Yonathan Smith MD POINT OF CARE TEST ORDERABLE S Performing Organization Address City/State/ZIP Code Phon e Number [address] POCT Glucose (08/11/2017 7:31 AM EST) P athologist Signature POC Glucose 156 65 - 199 [facility] mg/dL [facility] Comment: Supplemental ranges: <140 mg/dL before meals <180 mg/dL all other times of the day Specimen Anatomical Collection Method Collection Time Receive d Time (Source) Location / / Volume Laterality Blood specimen 08/11/2017 7:31 AM 018 7:31 (specimen) EST AM EST Yonathan Smith MD POINT OF CARE TEST ORDERABLE S Performing Organization Address City/State/ZIP Code Phon e Number [address] (ABNORMAL) Differential, Automated (08/11/2017 6:16 AM EST) Patholo gist Method Time Signature Neutrophils % 83.7 % [facility] Neutr Abs (ANC) 10.76 (H) 1.70 - [facility] 6.10 [facility] x10(3)/[facility] LABORATORY Lymphocytes % 6.0 % [facility] Lymphocytes Abs 0.8 (L) 0.9 - 3.2 [facility] x10(3)/[facility] LABORATORY Monocytes % 7.5 % [facility] Monocyte Abs 1.0 (H) 0.3 - 0.9 [facility] x10(3)/[facility] LABORATORY Eosinophils % 2.0 % [facility] Eosinophils Abs 0.3 0.0 - 0.4 [facility] x10(3)/[facility] LABORATORY Basophils % 0.3 % [facility] Basophils Abs 0.0 0.0 - 0.1 [facility] x10(3)/[facility] LABORATORY Immature Gran % 0.50 % [facility] Comment: Immature granulocytes(IG's)percentage an d absolute count will include metamyelocytes, myelocytes, and promyelo cytes. Blood smears from CBCs yielding IG's will be scanned manually for concor dance. If this scan disagrees with the automated IG or if promyelocytes are not ed, a manual differential will be performed. Melisa Gran Abs 0.06 (H) 0.00 - 0.04 x10(3)/[facility] LABORATORY Specimen Anatomical Collection Method Collection Time Receive d Time (Source) Location / / Volume Laterality Blood specimen 08/11/2017 6:16 AM 018 6:24 (specimen) EST AM EST Resulting Agency Comment Spec In Lab Yonathan Smith MD HEMATOLOGY ORDERABLES Performing Organization Address City/State/ZIP [place] [address] (ABNORMAL) Hemogram (08/11/2017 6:16 AM EST) Analysis Performed At Patho logist Time Signature WBC 12.9 (H) 4.0 - 9.5 [facility] x10(3)/[facility] LABORATORY RBC 3.28 (L) 4.58 - [facility] 5.54 [facility] x10(6)/[facility] LABORATORY Hemoglobin 9.5 (L) 13.7 - [facility] 16.[facility] gm/dL [facility] Hematocrit 29.8 (L) 40.5 - [facility] 48.5 % [facility] MCV 90.9 82.9 - [facility] 93.1 [facility] LABORATORY MCH 29.0 27.5 - [facility] RYAN 32.1 pg [facility] MCHC 31.9 (L) 32.0 - [facility] 35.7 gm/dL [facility] Platelets 236 145 - 357 [facility] x10(3)/[facility] LABORATORY RDWSD 53.5 (H) 36.0 - [facility] 45.0 [facility] LABORATORY RDWCV 16.3 (H) 11.4 - [facility] 13.8 % [facility] MPV 8.8 7.6 - 12.9 [facility] LABORATORY nRBC % Auto 0.0 % [facility] nRBC Abs Auto 0.000 0.000 - [facility] 0.000 [facility] x10(3)/[facility] LABORATORY Specimen Anatomical Collection Method Collection Time Receive d Time (Source) Location / / Volume Laterality Blood specimen 08/11/2017 6:16 AM 018 6:24 (specimen) EST AM EST Resulting Agency Comment Spec In Lab Yonathan Smith MD HEMATOLOGY ORDERABLES Performing Organization Address City/[facility]/[place] [address] (ABNORMAL) Prothrombin Time (08/11/2017 6:16 AM EST) athologist Signature PT 15.5 (H) 11.8 - 14.0 [facility] [...] Smith MD HEMATOLOGY ORDERABLES Performing Organization Address City/[facility]/[place] [address] Basic Metabolic Panel (non-fasting) (08/11/2017 6:16 AM EST) athologist Signature Glucose Lvl 139 65 - 199 [facility] mg/dL [facility] Comment: Diabetes: >=200 mg/dL plus symp toms BUN 12 10 - 20 mg/dL [facility] Creatinine 0.91 0.80 - 1.50 mg/dL [facility] Sodium 138 135 - 145 mmol/L [facility] LABORATORY Calcium 8.5 8.5 - 10.5 mg/dL [facility] Estimated GFR >60 >=60 [facility] Comment: The reported eGFR should be multiplied b y 1.2 for patients. The MDRD is not an appropriate measure o f renal function for patients with body mass extremes or in patients with acute kidney failure. http://[employer]/DHnkdep http://Ynvisible/DHMCnkf Specimen Anatomical Collection Method Collection Time Receive d Time (Source) Location / / Volume Laterality Blood specimen 08/11/2017 6:16 AM 018 6:24 (specimen) EST AM EST Resulting Agency Comment Spec In Lab Yonathan Smith MD CHEMISTRY ORDERABLES Performing Organization Address City/[facility]/ZIP Code Phon e Number [address] POCT Glucose (08/11/2017 4:07 AM EST) P athologist Signature POC Glucose 162 65 - 199 [facility] mg/dL [facility] Comment: Supplemental ranges: <140 mg/dL before meals <180 mg/dL all other times of the day Specimen Anatomical Collection Method Collection Time Receive d Time (Source) Location / / Volume Laterality Blood specimen 08/11/2017 4:07 AM 018 4:07 (specimen) EST AM EST Yonathan Smith MD POINT OF CARE TEST ORDERABLE S Performing Organization Address City/[facility]/[place] [address] POCT Glucose (08/10/2017 11:59 PM EST) athologist Signature POC Glucose 166 65 - 199 [facility]dL [facility] Comment: Supplemental ranges: <140 mg/dL before meals <180 mg/dL all other times of the day Specimen Anatomical Collection Method Collection Time Receive d Time (Source) Location / / Volume Laterality Blood specimen 08/10/2017 11:59 8 (specimen) PM EST 11:59 PM EST Yonathan Smith MD POINT OF CARE TEST ORDERABLE S Performing Organization Address City/State/[place] [address] POCT Glucose (08/10/2017 8:12 PM EST) athologist Signature POC Glucose 156 65 - 199 [facility] mg/dL [facility] Comment: Supplemental ranges: <140 mg/dL before meals <180 mg/dL all other times of the day Specimen Anatomical Collection Method Collection Time Receive d Time (Source) Location / / Volume Laterality Blood specimen 08/10/2017 8:12 PM 018 8:12 (specimen) EST PM EST Yonathan Smith MD POINT OF CARE TEST ORDERABLE S Performing Organization Address City/[facility]/[place] [address] (ABNORMAL) POCT Glucose (08/10/2017 4:42 PM EST) athologist Signature POC Glucose 211 (H) 65 - 199 [facility] mg/dL [facility] Comment: Supplemental ranges: <140 mg/dL before meals <180 mg/dL all other times of the day Specimen Anatomical Collection Method Collection Time Receive d Time (Source) Location / / Volume Laterality Blood specimen 08/10/2017 4:42 PM 018 4:42 (specimen) EST PM EST Yonathan Smith MD POINT OF CARE TEST ORDERABLE S Performing Organization Address City/State/[place] [address] (ABNORMAL) Differential, Automated (08/10/2017 2:30 PM EST) Patholo gist Method Time Signature Neutrophils % 87.6 % [facility] Neutr Abs (ANC) 9.90 (H) 1.70 - [facility] 6.10 [facility] x10(3)/[facility] LABORATORY Lymphocytes % 4.3 % [facility]ORY Lymphocytes Abs 0.5 (L) 0.9 - 3.2 [facility] x10(3)/[facility] LABORATORY Monocytes % 6.0 % [facility] Monocyte Abs 0.7 0.3 - 0.9 [facility] x10(3)/[facility] LABORATORY Eosinophils % 1.1 % [facility] Eosinophils Abs 0.1 0.0 - 0.4 [facility] x10(3)/[facility] LABORATORY Basophils % 0.4 % [facility] Basophils Abs 0.0 0.0 - 0.1 [facility] x10(3)/[facility] LABORATORY Immature Gran % 0.60 % [...] Gran Abs 0.07 (H) 0.00 - 0.04 x10(3)/[facility] LABORATORY Specimen Anatomical Collection Method Collection Time Receive d Time (Source) Location / / Volume Laterality Blood specimen 08/10/2017 2:30 PM 018 2:48 (specimen) EST PM EST Resulting Agency Comment Spec In Lab Yonathan Smith MD HEMATOLOGY ORDERABLES Performing Organization Address City/State/ZIP [place] [address] (ABNORMAL) Hemogram (08/10/2017 2:30 PM EST) Analysis Performed At [facility] logist Time Signature WBC 11.3 (H) 4.0 - 9.5 [facility] x10(3)/[facility] LABORATORY RBC 3.13 (L) 4.58 - [facility] 5.54 [facility] x10(6)/[facility] LABORATORY Hemoglobin 8.9 (L) 13.7 - BARBARA ZHAOYRAN 16.5 gm/dL [facility] LABORATORY Hematocrit 28.4 (L) 40.5 - BARBARA VILLAREALCOCK 48.5 % [facility] LABORATORY MCV 90.7 82.9 - [facility] 93.1 [facility] LABORATORY MCH 28.4 27.5 - [place] VILLAREALCOCK 32.1 pg [facility] LABORATORY MCHC 31.3 (L) 32.0 - BARBARA ZHAORYAN 35.7 gm/dL [facility] LABORATORY Platelets 213 145 - 357 BARBARA MONTROSE x10(3)/[facility] LABORATORY RDWSD 53.7 (H) 36.0 - BARBARA RYAN 45.0 [facility] LABORATORY RDWCV 16.4 (H) 11.4 - [facility] 13.8 % [facility] LABORATORY MPV 8.9 7.6 - 12.9 [facility] LABORATORY nRBC % Auto 0.0 % [facility] LABORATORY nRBC Abs Auto 0.000 0.000 - BARBARA RYAN 0.000 [facility] x10(3)/[facility] LABORATORY Specimen Anatomical Collection Method Collection Time Receive d Time (Source) Location / / Volume Laterality Blood specimen 08/10/2017 2:30 PM 018 2:48 (specimen) EST PM EST Resulting Agency Comment Spec In Lab Yonathan Smith MD HEMATOLOGY ORDERABLES Performing Organization Address City/State/ZIP [place] [address] (ABNORMAL) POCT Glucose (08/10/2017 1:50 PM EST) P athologist Signature POC Glucose 243 (H) 65 - 199 [facility] mg/dL [facility] LABORATORY Comment: Supplemental ranges: <140 mg/dL before meals <180 mg/dL all other times of the day Specimen Anatomical Collection Method Collection Time Receive d Time (Source) Location / / Volume Laterality Blood specimen 08/10/2017 1:50 PM 018 1:50 (specimen) EST PM EST Yonathan Smith MD POINT OF CARE TEST ORDERABLE S Performing Organization Address City/State/ZIP Code Phon e Number [address] POCT Glucose (08/10/2017 11:21 AM EST) P athologist Signature POC Glucose 156 65 - 199 [facility]dL [facility] LABORATORY Comment: Supplemental ranges: <140 mg/dL before meals <180 mg/dL all other times of the day Specimen Anatomical Collection Method Collection Time Receive d Time (Source) Location / / Volume Laterality Blood specimen 08/10/2017 11:21 8 (specimen) AM EST 11:21 AM EST Yonathan Smith MD POINT OF CARE TEST ORDERABLE S Performing Organization Address City/State/ZIP Code Phon e Number [address] (ABNORMAL) Differential, Automated (08/10/2017 10:28 AM EST) [facility] gist Method Time Signature Neutrophils % 85.3 % [facility] LABORATORY Neutr Abs (ANC) 9.43 (H) 1.70 - [facility] 6.10 [facility] x10(3)/[facility] L LABORATORY Lymphocytes % 5.5 % [facility] LABORATORY Lymphocytes Abs 0.6 (L) 0.9 - 3.2 [facility] x10(3)/[facility] LABORATORY Monocytes % 5.9 % [facility] LABORATORY Monocyte Abs 0.6 0.3 - 0.9 [facility] x10(3)/[facility] LABORATORY Eosinophils % 2.1 % [facility] LABORATORY Eosinophils Abs 0.2 0.0 - 0.4 [facility] x10(3)/[facility] LABORATORY Basophils % 0.4 % [facility] LABORATORY Basophils Abs 0.0 0.0 - 0.1 [facility] x10(3)/[facility] LABORATORY Immature Gran % 0.80 % [facility] LABORATORY Comment: Immature granulocytes(IG's)percentage an d absolute count will include metamyelocytes, myelocytes, and promyelo cytes. Blood smears from CBCs yielding IG's will be scanned manually for concor dance. If this scan disagrees with the automated IG or if promyelocytes are not ed, a manual differential will be performed. Melisa Gran Abs 0.09 (H) 0.00 - 0.04 x10(3)/[facility] LABORATORY Specimen Anatomical Collection Method Collection Time Receive d Time (Source) Location / / Volume Laterality Blood specimen 08/10/2017 10:28 8 (specimen) AM EST 10:35 AM EST Resulting Agency Comment Spec In Lab Yonathan Smith MD HEMATOLOGY ORDERABLES Performing Organization Address City/State/ZIP [place] [address] (ABNORMAL) Hemogram (08/10/2017 10:28 AM EST) Analysis Performed At Patho logist Time Signature WBC 11.0 (H) 4.0 - 9.5 [facility] x10(3)/[facility] LABORATORY RBC 3.02 (L) 4.58 - [facility] [employer] 5.54 [facility] x10(6)/[facility] LABORATORY Hemoglobin 8.8 (L) 13.7 - [facility] 16.5 gm/dL [facility] LABORATORY Hematocrit 28.1 (L) 40.5 - [facility] 48.5 % [facility] LABORATORY MCV 93.0 82.9 - [facility] 93.1 [facility] LABORATORY MCH 29.1 27.5 - [facility] RYAN 32.1 pg [facility] LABORATORY MCHC 31.3 (L) 32.0 - [facility] 35.7 gm/dL [facility] LABORATORY Platelets 207 145 - 357 [facility] x10(3)/[facility] LABORATORY RDWSD 55.3 (H) 36.0 - [facility] RYAN 45.0 [facility] LABORATORY RDWCV 16.4 (H) 11.4 - [facility] RYAN 13.8 % [facility] LABORATORY MPV 9.0 7.6 - 12.9 [facility] LABORATORY nRBC % Auto 0.0 % [facility] LABORATORY nRBC Abs Auto 0.000 0.000 - BARBARA DAVIS 0.000 [facility] x10(3)/[facility] LABORATORY Specimen Anatomical Collection Method Collection Time Receive d Time (Source) Location / / Volume Laterality Blood specimen 08/10/2017 10:28 8 (specimen) AM EST 10:35 AM EST Resulting Agency Comment Spec In Lab Yonathan Smith MD HEMATOLOGY ORDERABLES Performing Organization Address City/State/ZIP Code Ph[place] [address] VS Angiogram/intervention (vascular) (08/10/2017 [...] 2.5x80 5. Completion RLE angiogram 6. L CASTER HELPER angiogram 7. 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 L CASTER HELPER access in the distal L CASTER HELPER. - Closure device: Mynx Technical Procedure: [...] for a 45cm 5F Destination. V18 and [place] a nd QuickCross catheters were used to [...] bifurcation. Access appeared in the distal R CASTER HELPER. Closure and sheath removal was performed [...] 2.5x80 5. Completion RLE angiogram 6. L CASTER HELPER angiogram 7. 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 L CASTER HELPER access in the distal L CASTER HELPER. - Closure device: Mynx Technical Procedure: [...] for a 45cm 5F Destination. V18 and [place] a nd QuickCross catheters were used to [...] bifurcation. Access appeared in the distal R CASTER HELPER. Closure and sheath removal was performed [...] (ABNORMAL) Differential, Automated (08/10/2017 5:50 AM EST) [facility] Method Time Signature Neutrophils % 80.1 % [facility] LABORATORY Neutr Abs (ANC) 9.01 (H) 1.70 - [facility] 6.10 [facility] x10(3)/[facility] LABORATORY Lymphocytes % 8.8 % [facility] LABORATORY Lymphocytes Abs 1.0 0.9 - 3.2 [facility] x10(3)/[facility] LABORATORY Monocytes % 8.3 % [facility] LABORATORY Monocyte Abs 0.9 0.3 - 0.9 [facility] x10(3)/[facility] LABORATORY Eosinophils % 2.0 % [facility] LABORATORY Eosinophils Abs 0.2 0.0 - 0.4 [facility] x10(3)/[facility] LABORATORY Basophils % 0.4 % [facility] LABORATORY Basophils Abs 0.0 0.0 - 0.1 [facility] x10(3)/[facility] LABORATORY Immature Gran % 0.40 % [...] Gran Abs 0.05 (H) 0.00 - 0.04 x10(3)/[facility] LABORATORY Specimen Anatomical Collection Method Collection Time Receive d Time (Source) Location / / Volume Laterality Blood specimen 08/10/2017 5:50 AM 018 5:59 (specimen) EST AM EST Resulting Agency Comment Spec In Lab Yonathan Smith MD HEMATOLOGY ORDERABLES Performing Organization Address City/State/ZIP [place] [address] (ABNORMAL) Hemogram (08/10/2017 5:50 AM EST) Analysis Performed At Patho logist Time Signature WBC 11.3 (H) 4.0 - 9.5 BARBARA RYAN x10(3)/[facility] LABORATORY RBC 3.15 (L) 4.58 - BARBARA RYAN 5.54 [facility] x10(6)/[facility] LABORATORY Hemoglobin 8.9 (L) 13.7 - [facility] 16.5 gm/dL [facility] LABORATORY Hematocrit 29.0 (L) 40.5 - [facility] 48.5 % [facility] LABORATORY MCV 92.1 82.9 - [facility] 93.1 [facility] LABORATORY MCH 28.3 27.5 - BARBARA RYAN 32.1 pg [facility] LABORATORY MCHC 30.7 (L) 32.0 - BARBARA RYAN 35.7 gm/dL [facility] LABORATORY Platelets 231 145 - 357 [facility] x10(3)/[facility] LABORATORY RDWSD 53.9 (H) 36.0 - BARBARA RYAN 45.0 [facility] LABORATORY RDWCV 16.2 (H) 11.4 - [facility] RYAN 13.8 % [facility] LABORATORY MPV 8.7 7.6 - 12.9 [facility] LABORATORY nRBC % Auto 0.0 % [facility] LABORATORY nRBC Abs Auto 0.000 0.000 - BARBARA RYAN 0.000 [facility] x10(3)/[facility] LABORATORY Specimen Anatomical Collection Method Collection Time Receive d Time (Source) Location / / Volume Laterality Blood specimen 08/10/2017 5:50 AM 018 5:59 (specimen) EST AM EST Resulting Agency Comment Spec In Lab Yonathan Smith MD HEMATOLOGY ORDERABLES Performing Organization Address City/State/ZIP [place] [address] (ABNORMAL) Basic Metabolic Panel (non-fasting) (08/10/2017 5:50 AM EST) P athologist Signature Glucose Lvl 135 65 - 199 [facility] mg/dL [facility] LABORATORY Comment: [...] Calcium 8.1 (L) 8.5 - 10.5 mg/dL [facility] LABORATORY Estimated GFR >60 >=60 [facility] LABORATORY Comment: The reported eGFR should be multiplied b y 1.2 for patients. The MDRD is not an appropriate measure o f renal function for patients with body mass extremes or in patients with acute kidney failure. http://Ynvisible/DHnkdep http://Ynvisible/DHMCnkf Specimen Anatomical Collection Method Collection Time Receive d Time (Source) Location / / Volume Laterality Blood specimen 08/10/2017 5:50 AM 018 5:59 (specimen) EST AM EST Resulting Agency Comment Spec In Lab Yonathan Smith MD CHEMISTRY ORDERABLES Performing Organization Address City/State/ZIP [place] [address] (ABNORMAL) Prothrombin Time (08/10/2017 5:50 AM EST) athologist Signature PT 16.8 (H) 11.8 - 14.0 [facility] LABORATORY INR 1.4 (H) 0.9 - 1.1 [facility] [...] Smith MD HEMATOLOGY ORDERABLES Performing Organization Address City/[facility]/ZIP Code Phon e Number [address] (ABNORMAL) POCT Glucose (08/10/2017 4:01 AM EST) athologist Signature POC Glucose 206 (H) 65 - 199 [facility]/dL [facility] LABORATORY Comment: Supplemental ranges: <140 mg/dL before meals <180 mg/dL all other times of the day Specimen Anatomical Collection Method Collection Time Receive d Time (Source) Location / / Volume Laterality Blood specimen 08/10/2017 4:01 AM 018 4:01 (specimen) EST AM EST Yonathan Smith MD POINT OF CARE TEST ORDERABLE S Performing Organization Address City/[facility]/ZIP Code Phon e Number [address] POCT Glucose (08/10/2017 2:01 AM EST) athologist Signature POC Glucose 188 65 - 199 [facility]/dL [facility] LABORATORY Comment: Supplemental ranges: <140 mg/dL before meals <180 mg/dL all other times of the day Specimen Anatomical Collection Method Collection Time Receive d Time (Source) Location / / Volume Laterality Blood specimen 08/10/2017 2:01 AM 018 2:01 (specimen) EST AM EST Yonathan Smith MD POINT OF CARE TEST ORDERABLE S Performing Organization Address City/[facility]/ZIP Code Phon e Number [address] (ABNORMAL) POCT Glucose (08/09/2017 11:42 PM EST) athologist Signature POC Glucose 283 (H) 65 - 199 [facility] mg/dL [facility] LABORATORY Comment: Supplemental ranges: <140 mg/dL before meals <180 mg/dL all other times of the day Specimen Anatomical Collection Method Collection Time Receive d Time (Source) Location / / Volume Laterality Blood specimen 08/09/2017 11:42 8 (specimen) PM EST 11:42 PM EST Yonathan Smith MD POINT OF CARE TEST ORDERABLE S Performing Organization Address City/State/ZIP Code Phon e Number [address] POCT Glucose (08/09/2017 8:55 PM EST) athologist Signature POC Glucose 182 65 - 199 [facility] mg/dL [facility] LABORATORY Comment: Supplemental ranges: <140 mg/dL before meals <180 mg/dL all other times of the day Specimen Anatomical Collection Method Collection Time Receive d Time (Source) Location / / Volume Laterality Blood specimen 08/09/2017 8:55 PM 018 8:55 (specimen) EST PM EST Yonathan Smith MD POINT OF CARE TEST ORDERABLE S Performing Organization Address City/State/[place] [address] (ABNORMAL) APTT (08/09/2017 6:42 PM EST) athologist Signature PTT 90 (H) 25 - 35 sec [facility] [...] Organization Address City/State/ZIP Code Phon e Number [address] POCT Glucose (08/09/2017 4:41 PM EST) athologist Signature POC Glucose 195 65 - 199 BARBARA ZHAORYAN mg/dL [facility] LABORATORY Comment: Supplemental ranges: <140 mg/dL before meals <180 mg/dL all other times of the day Specimen Anatomical Collection Method Collection Time Receive d Time (Source) Location / / Volume Laterality Blood specimen 08/09/2017 4:41 PM 018 4:41 (specimen) EST PM EST Yonathan Smith MD POINT OF CARE TEST ORDERABLE S Performing Organization Address City/[facility]/ZIP Code Phon e Number BARBARA [address] POCT Glucose (08/09/2017 12:29 PM EST) athologist Signature POC Glucose 140 65 - 199 BARBARA ZHAORYAN mg/dL [facility] LABORATORY Comment: Supplemental ranges: <140 mg/dL before meals <180 mg/dL all other times of the day Specimen Anatomical Collection Method Collection Time Receive d Time (Source) Location / / Volume Laterality Blood specimen 08/09/2017 12:29 8 (specimen) PM EST 12:29 PM EST Yonathan Smith MD POINT OF CARE TEST ORDERABLE S Performing Organization Address City/[facility]/ZIP Code Phon e Number BARBARA RYAN [address] POCT Glucose (08/09/2017 9:59 AM EST) athologist Signature POC Glucose 135 65 - 199 BARBARA ZHAORYAN mg/dL [facility] LABORATORY Comment: Supplemental [...] City/State/ZIP [place] [address] [facility] LAB[address] Drive Specimen to Pathology (08/09/2017 8:41 AM EST) Specimen Anatomical Collection Method Collection Time Receive d Time (Source) Location / / Volume Laterality AP Specimen 08/09/2017 8:41 AM 8 8:41 EST AM EST Narrative [facility] LABORAT ORY - 08/09/2017 8:41 AM EST Specimen requisition ordered. ??Separate Pathology report to follow Yonathan Smith MD PATHOLOGY/CYTOLOGY ORDERABLE S Performing Organization Address City/State/ZIP [place] [address] [facility] LABOR[address] Drive Surgical Pathology Report (08/09/2017 8:40 AM EST) Component Value Ref Test Analysis Performed At [facility] gist Range Method Time Signature Surgical [id number] ? Location: [facility]; [facility]; A [facility] Report The signing pathologist has (i) examined the relevant preparation(s) for the [facility] specimen(s) and (ii) rendered or confirmed the diagnosis(es) . HOSPITAL LABORATORY . 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 ?Viable proximal resection margins. Electronically signed by: ??Henrique Saravia MD Verified: ??08/13/2017 ?Pathologist Performed at: ??-[facility] Dept. of Pathology, [place], [place] CLINICAL INFORMATION Specimen Submitted: A - [...] Organization Address City/State/[place] [address] Anaerobic Culture (08/09/2017 8:30 AM EST) [facility] Signature Anaerobic No anaerobic [facility] Culture organisms [facility] LABORATORY Specimen Anatomical Collection Method Collection [...] Organization Address City/State/[place] [address] (ABNORMAL) Abscess/Wound Aspirate Culture (08/09/2017 8:30 AM EST) [place] Method Time Signature Abscess/Wound Moderate mixed [facility] Aspirate bacterial RYAN Culture morphotypes [facility] normal LABORATORY cutaneous leroy (A) Gram Stain Rare White Blood Cells [facility] Few Gram Positive Cocci in pairs MONTROSE (A) [facility] LABORATORY Organism Gram Positive BARBARA Cocci in pairs MONTROSE (A) [facility] LABORATORY Specimen Anatomical Collection [...] - GENERAL ORDER ROBSON Performing Organization Address City/[facility]/ZIP Code Phon e Number [address] POCT Glucose (08/09/2017 4:28 AM EST) P athologist Signature POC Glucose 128 65 - 199 [facility] mg/dL [facility] LABORATORY Comment: Supplemental ranges: <140 mg/dL before meals <180 mg/dL all other times of the day Specimen Anatomical Collection Method Collection Time Receive d Time (Source) Location / / Volume Laterality Blood specimen 08/09/2017 4:28 AM 018 4:28 (specimen) EST AM EST Yonathan Smith MD POINT OF CARE TEST ORDERABLE S Performing Organization Address City/[facility]/ZIP Code Phon e Number [address] ABORH Recheck Status (08/09/2017 1:10 AM EST) [facility] [employer] Method Time Signature ABORH Type Completed [facility] LABORATORY Specimen Anatomical Collection Method Collection Time Receive d Time (Source) Location / / Volume Laterality Blood specimen 08/09/2017 1:10 AM 018 1:35 (specimen) EST AM EST Resulting Agency Comment Spec In Lab Yonathan Smith MD BLOOD BANK ORDERABLES Performing Organization Address City/[facility]/ZIP Code Phon e Number [address] Antibody screen (08/09/2017 1:10 AM EST) [facility] [employer] Method Time Signature Ab Screen Negative [facility] LABORATORY Expires at 08/12/2017 [id number] on: [facility] LABORATORY Specimen Anatomical Collection Method Collection Time Receive d Time (Source) Location / / Volume Laterality Blood specimen 08/09/2017 1:10 AM 018 1:35 (specimen) EST AM EST Resulting Agency Comment Spec In Lab Yonathan Smith MD BLOOD BANK ORDERABLES Performing Organization Address City/[facility]/ZIP Code Phon e Number [address] ABO/Rh Typing (08/09/2017 1:10 AM EST) P athologist Signature ABORh Type O Pos [facility] Specimen Anatomical Collection Method Collection Time Receive d Time (Source) Location / / Volume Laterality Blood specimen 08/09/2017 1:10 AM 018 1:35 (specimen) EST AM EST Resulting Agency Comment Spec In Lab Yonathan Smith MD BLOOD BANK ORDERABLES Performing Organization Address [facility] Phon e Number [address] (ABNORMAL) APTT (08/09/2017 1:10 AM EST) P athologist Signature PTT 86 (H) 25 - 35 sec [facility] Resulting Agency Comment Spec In Lab Yonathan Smiht MD HEMATOLOGY ORDERABLES Performing Organization Address City/[facility] Phon e Number [address] (ABNORMAL) Differential, Automated (08/09/2017 1:10 AM EST) Patholo gist Method Time Signature Neutrophils % 76.2 % [facility] LABORATORY Neutr Abs (ANC) 8.59 (H) 1.70 - [facility] 6.10 [facility] x10(3)/[facility] LABORATORY Lymphocytes % 11.0 % [facility] LABORATORY Lymphocytes Abs 1.2 0.9 - 3.2 [facility] x10(3)/[facility] LABORATORY Monocytes % 8.4 % [facility] LABORATORY Monocyte Abs 1.0 (H) 0.3 - 0.9 [facility] x10(3)/[facility] LABORATORY Eosinophils % 3.5 % [facility] LABORATORY Eosinophils Abs 0.4 0.0 - 0.4 [facility] x10(3)/[facility] LABORATORY Basophils % 0.5 % [facility] LABORATORY Basophils Abs 0.1 0.0 - 0.1 [facility] x10(3)/[facility] LABORATORY Immature Gran % 0.40 % [...] Gran Abs 0.05 (H) 0.00 - 0.04 x10(3)/[facility] LABORATORY Specimen Anatomical Collection Method Collection Time Receive d Time (Source) Location / / Volume Laterality Blood specimen 08/09/2017 1:10 AM 018 1:19 (specimen) EST AM EST Resulting Agency Comment Spec In Lab Yonathan Smith MD HEMATOLOGY ORDERABLES Performing Organization Address City/State/ZIP [place] [address] (ABNORMAL) Hemogram (08/09/2017 1:10 AM EST) Analysis Performed At Patho logist Time Signature WBC 11.3 (H) 4.0 - 9.5 [facility] x10(3)/[facility] LABORATORY RBC 3.47 (L) 4.58 - [facility] 5.54 [facility] x10(6)/[facility] LABORATORY Hemoglobin 10.0 (L) 13.7 - [facility] 16.5 gm/dL [facility] LABORATORY Hematocrit 31.9 (L) 40.5 - BARBARA RYAN 48.5 % [facility] LABORATORY MCV 91.9 82.9 - [facility] 93[facility]1 [facility] LABORATORY MCH 28.8 27.5 - BARBARA RYAN 32.1 pg [facility] LABORATORY MCHC 31.3 (L) 32.0 - [facility] RYAN 35.7 gm/dL [facility] LABORATORY Platelets 234 145 - 357 [facility] x10(3)/[facility] LABORATORY RDWSD 54.0 (H) 36.0 - [facility] RYAN 45.0 [facility] LABORATORY RDWCV 16.2 (H) 11.4 - [facility] 13.8 % [facility] LABORATORY MPV 8.7 7.6 - 12.9 [facility] LABORATORY nRBC % Auto 0.0 % [facility] LABORATORY nRBC Abs Auto 0.000 0.000 - [facility] 0.[facility] x10(3)/[facility] LABORATORY Specimen Anatomical Collection Method Collection Time Receive d Time (Source) Location / / Volume Laterality Blood specimen 08/09/2017 1:10 AM 018 1:19 (specimen) EST AM EST Resulting Agency Comment Spec In Lab Yonathan Smith MD HEMATOLOGY ORDERABLES Performing Organization Address City/State/ZIP [place] [address] (ABNORMAL) Prothrombin Time (08/09/2017 1:10 AM EST) P athologist Signature PT 16.0 (H) 11.8 - 14.0 [facility] [...] City/State/ZIP Code Phon e Number [place] [id number] (ABNORMAL) Basic Metabolic Panel (non-fasting) (08/09/2017 1:10 AM EST) athologist Signature Glucose Lvl 108 65 - 199 [facility] mg/dL [facility] Comment: Diabetes: >=200 mg/dL plus symp toms BUN 34 (H) 10 - 20 mg/dL [facility] Creatinine 1.54 (H) 0.80 - 1.50 mg/dL [facility] Sodium 138 135 - 145 mmol/L [facility] Potassium 4.5 3.5 - 5.0 mmol/L [facility] Comment: Please note: ??Patients with WBC >100,00 0 may have falsely elevated Potassium levels. ??For accurate Potassium quantif ication in these patients send serum separator tube (gold top) for subsequent determinations. ??Contact the Clinical Chemistry Laboratory if there are any qu estions. Chloride 96 (L) 98 - 107 mmol/L [facility] CO2 29 22 - 31 mmol/L [facility] Anion Gap 13 5 - 15 mmol/L [facility] Calcium 8.3 (L) 8.5 - 10.5 mg/dL [facility] Estimated GFR 45 (L) >=60 [facility] Comment: The reported eGFR should be multiplied b y 1.2 for patients. The MDRD is not an appropriate measure o f renal function for patients with body mass extremes or in patients with acute kidney failure. http://[employer]/DHnkdep http://[employer]visible/DHMCnkf Specimen Anatomical Collection Method Collection Time Receive d Time (Source) Location / / Volume Laterality Blood specimen 08/09/2017 1:10 AM 018 1:19 (specimen) EST AM EST Resulting Agency Comment Spec In Lab Yonathan Smith MD CHEMISTRY ORDERABLES Performing Organization Address City/State/[place] [address] POCT Glucose (08/09/2017 12:05 AM EST) athologist Signature POC Glucose 128 65 - 199 [facility] mg/dL [facility] Comment: Supplemental ranges: <140 mg/dL before meals <180 mg/dL all other times of the day Specimen Anatomical Collection Method Collection Time Receive d Time (Source) Location / / Volume Laterality Blood specimen 08/09/2017 12:05 8 (specimen) AM EST 12:05 AM EST Yonathan Smith MD POINT OF CARE TEST ORDERABLE S Performing Organization Address City/[facility]/[place] [address] (ABNORMAL) POCT Glucose (08/08/2017 7:36 PM EST) athologist Signature POC Glucose 215 (H) 65 - 199 [facility] mg/dL [facility] Comment: Supplemental ranges: <140 mg/dL before meals <180 mg/dL all other times of the day Specimen Anatomical Collection Method Collection Time Receive d Time (Source) Location / / Volume Laterality Blood specimen 08/08/2017 7:36 PM 018 7:36 (specimen) EST PM EST Yonathan Smith MD POINT OF CARE TEST ORDERABLE S Performing Organization Address City/State/[place] [address] (ABNORMAL) POCT Glucose (08/08/2017 6:23 PM EST) athologist Signature POC Glucose 216 (H) 65 - 199 [facility] mg/dL [facility] Comment: Supplemental ranges: <140 mg/dL before meals <180 mg/dL all other times of the day Specimen Anatomical Collection Method Collection Time Receive d Time (Source) Location / / Volume Laterality Blood specimen 08/08/2017 6:23 PM 018 6:23 (specimen) EST PM EST Yonathan Smith MD POINT OF CARE TEST ORDERABLE S Performing Organization Address City/State/[place] [address] (ABNORMAL) APTT (08/08/2017 6:00 PM EST) athologist Signature PTT 97 (H) 25 - 35 sec [facility] Organization Address City/State/[place] [address] POCT Glucose (08/08/2017 4:42 PM EST) athologist Signature POC Glucose 78 65 - 199 [facility] mg/dL [facility] Comment: Supplemental ranges: <140 mg/dL before meals <180 mg/dL all other times of the day Specimen Anatomical Collection Method Collection Time Receive d Time (Source) Location / / Volume Laterality Blood specimen 08/08/2017 4:42 PM 018 4:42 (specimen) EST PM EST Yonathan Smith MD POINT OF CARE TEST ORDERABLE S Performing Organization Address City/[facility]/[place] [address] (ABNORMAL) POCT Glucose (08/08/2017 4:01 PM EST) athologist Signature POC Glucose 58 (L) 65 - 199 [facility] Comment: Supplemental ranges: <140 mg/dL before meals <180 mg/dL all other times of the day Specimen Anatomical Collection Method Collection Time Receive d Time (Source) Location / / Volume Laterality Blood specimen 08/08/2017 4:01 PM 018 4:01 (specimen) EST PM EST Yonathan Smith MD POINT OF CARE TEST ORDERABLE S Performing Organization Address City/[facility]/ZIP Code Phon e Number [address] POCT Glucose (08/08/2017 11:51 AM EST) P athologist Signature POC Glucose 90 65 - 199 [facility] Comment: Supplemental ranges: <140 mg/dL before meals <180 mg/dL all other times of the day Specimen Anatomical Collection Method Collection Time Receive d Time (Source) Location / / Volume Laterality Blood specimen 08/08/2017 11:51 8 (specimen) AM EST 11:51 AM EST Yonathan Smith MD POINT OF CARE TEST ORDERABLE S Performing Organization Address City/[facility]/[place] [address] (ABNORMAL) APTT (08/08/2017 10:27 AM EST) P athologist Signature PTT 64 (H) 25 - 35 sec [facility] Smith MD HEMATOLOGY ORDERABLES Performing Organization Address City/[facility]/ZIP Code Phon e Number [address] POCT Glucose (08/08/2017 8:02 AM EST) athologist Signature POC Glucose 178 65 - 199 [facility] mg/dL [facility] Comment: Supplemental ranges: <140 mg/dL before meals <180 mg/dL all other times of the day Specimen Anatomical Collection Method Collection Time Receive d Time (Source) Location / / Volume Laterality Blood specimen 08/08/2017 8:02 AM 018 8:02 (specimen) EST AM EST Yonathan Smith MD POINT OF CARE TEST ORDERABLE S Performing Organization Address City/[facility]/ZIP [facility] [place] [address] (ABNORMAL) APTT (08/08/2017 4:51 AM EST) athologist Signature PTT >160 25 - 35 [facility] (Critical) sec [facility] Comment: Called by: HOWARD, Read [...] Smith MD HEMATOLOGY ORDERABLES Performing Organization Address City/[facility]/[place] [address] (ABNORMAL) Differential, Automated (08/08/2017 4:51 AM EST) [facility] Signature Neutrophils % 77.9 % [facility] LABORATORY Neutr Abs (ANC) 8.17 (H) 1.70 - [facility] 6.10 [facility] x10(3)/[facility] L LABORATORY Lymphocytes % 10.3 % [facility] LABORATORY Lymphocytes Abs 1.1 0.9 - 3.2 [facility] x10(3)/[facility] LABORATORY Monocytes % 7.0 % [facility] LABORATORY Monocyte Abs 0.7 0.3 - 0.9 [facility] x10(3)/[facility] LABORATORY Eosinophils % 3.6 % [facility] LABORATORY Eosinophils Abs 0.4 0.0 - 0.4 [facility] x10(3)/[facility] LABORATORY Basophils % 0.5 % [facility] LABORATORY Basophils Abs 0.0 0.0 - 0.1 [facility] x10(3)/[facility] LABORATORY Immature Gran % 0.70 % [...] Gran Abs 0.07 (H) 0.00 - 0.04 x10(3)/[facility] LABORATORY Specimen Anatomical Collection Method Collection Time Receive d Time (Source) Location / / Volume Laterality Blood specimen 08/08/2017 4:51 AM 018 5:14 (specimen) EST AM EST Resulting Agency Comment Spec In Lab Yonathan Smith MD HEMATOLOGY ORDERABLES Performing Organization Address City/State/ZIP [place] [address] (ABNORMAL) Hemogram (08/08/2017 4:51 AM EST) Analysis Performed At Patho logist Time Signature WBC 10.5 (H) 4.0 - 9.5 [facility] x10(3)/[facility] LABORATORY RBC 3.27 (L) 4.58 - [facility] 5.54 [facility] x10(6)/[facility] LABORATORY Hemoglobin 9.3 (L) 13.7 - [facility] 16.5 gm/dL [facility] Hematocrit 30.3 (L) 40.5 - [facility] 48.5 % [facility] MCV 92.7 82.9 - [facility] 93.1 [facility] LABORATORY MCH 28.4 27.5 - [facility] 32.1 pg [facility] LABORATORY MCHC 30.7 (L) 32.0 - [facility] 35.7 gm/dL [facility] LABORATORY Platelets 252 145 - 357 [facility] x10(3)/[facility] LABORATORY RDWSD 54.6 (H) 36.0 - [facility] 45.0 [facility] LABORATORY RDWCV 16.2 (H) 11.4 - [facility] 13.8 % [facility] LABORATORY MPV 9.1 7.6 - 12.9 [facility] LABORATORY nRBC % Auto 0.0 % [facility] LABORATORY nRBC Abs Auto 0.000 0.000 - [facility] 0.000 [facility] x10(3)/[facility] LABORATORY Specimen Anatomical Collection Method Collection Time Receive d Time (Source) Location / / Volume Laterality Blood specimen 08/08/2017 4:51 AM 018 5:14 (specimen) EST AM EST Resulting Agency Comment Spec In Lab Yonathan Smith MD HEMATOLOGY ORDERABLES Performing Organization Address City/State/ZIP [place] [address] (ABNORMAL) Prothrombin Time (08/08/2017 4:51 AM EST) P athologist Signature PT 18.1 (H) 11.8 - 14.0 [facility] LABORATORY INR 1.5 (H) 0.9 - 1.1 [facility] [...] City/State/ZIP [place] [address] (ABNORMAL) Basic Metabolic Panel (non-fasting) (08/08/2017 4:51 AM EST) athologist Signature Glucose Lvl 229 (H) 65 - 199 [facility] mg/dL [facility] Comment: Diabetes: >=200 mg/dL plus symp toms BUN 35 (H) 10 - 20 mg/dL [facility]OR[facility] Creatinine 1.57 (H) 0.80 - 1.50 mg/dL [facility] LABORATORY Sodium 136 135 - 145 mmol/L [facility] Potassium 4.5 3.5 - 5.0 mmol/L [facility] Comment: Please note: ??Patients with WBC >100,00 0 may have falsely elevated Potassium levels. ??For accurate Potassium quantif ication in these patients send serum separator tube (gold top) for subsequent determinations. ??Contact the Clinical Chemistry Laboratory if there are any qu estions. Chloride 94 (L) 98 - 107 mmol/L [facility] LABOR[facility]ORY CO2 25 22 - 31 mmol/L [facility] Anion Gap 17 (H) 5 - 15 mmol/L [facility] Calcium 7.9 (L) 8.5 - 10.5 mg/dL [facility] Estimated GFR 44 (L) >=60 [facility] Comment: The reported eGFR should be multiplied b y 1.2 for patients. The MDRD is not an appropriate measure o f renal function for patients with body mass extremes or in patients with acute kidney failure. http://[employer]/DHnkdep http://[employer]/DHMCnkf Specimen Anatomical Collection Method Collection Time Receive d Time (Source) Location / / Volume Laterality Blood specimen 08/08/2017 4:51 AM 018 5:14 (specimen) EST AM EST Resulting Agency Comment Spec In Lab Yonathan Smith MD CHEMISTRY ORDERABLES Performing Organization Address City/State/ZIP Code Phon e Number [address] POCT Glucose (08/08/2017 4:20 AM EST) athologist Signature POC Glucose 193 65 - 199 [facility] Comment: Supplemental ranges: <140 mg/dL before meals <180 mg/dL all other times of the day Specimen Anatomical Collection Method Collection Time Receive d Time (Source) Location / / Volume Laterality Blood specimen 08/08/2017 4:20 AM 018 4:20 (specimen) EST AM EST Yonathan Smith MD POINT OF CARE TEST ORDERABLE S Performing Organization Address City/[facility]/ZIP Code Phon e Number [address] POCT Glucose (08/07/2017 11:11 PM EST) athologist Signature POC Glucose 124 65 - 199 [facility]dL [facility] Comment: Supplemental ranges: <140 mg/dL before meals <180 mg/dL all other times of the day Specimen Anatomical Collection Method Collection Time Receive d Time (Source) Location / / Volume Laterality Blood specimen 08/07/2017 11:11 8 (specimen) PM EST 11:11 PM EST Yonathan Smith MD POINT OF CARE TEST ORDERABLE S Performing Organization Address City/State/[place] [address] (ABNORMAL) APTT (08/07/2017 10:18 PM EST) athologist Signature PTT 114 (H) 25 - 35 sec [facility] Smith MD HEMATOLOGY ORDERABLES Performing Organization Address City/[facility]/ZIP Code Phon e Number [address] POCT Glucose (08/07/2017 8:10 PM EST) athologist Signature POC Glucose 140 65 - 199 [facility] mg/dL [facility] Comment: Supplemental ranges: <140 mg/dL before meals <180 mg/dL all other times of the day Specimen Anatomical Collection Method Collection Time Receive d Time (Source) Location / / Volume Laterality Blood specimen 08/07/2017 8:10 PM 018 8:10 (specimen) EST PM EST Yonathan Smith MD POINT OF CARE TEST ORDERABLE S Performing Organization Address City/[facility]/ZIP Code Phon e Number [address] POCT Glucose (08/07/2017 5:27 PM EST) athologist Signature POC Glucose 187 65 - 199 [facility]dL [facility] Comment: Supplemental ranges: <140 mg/dL before meals <180 mg/dL all other times of the day Specimen Anatomical Collection Method Collection Time Receive d Time (Source) Location / / Volume Laterality Blood specimen 08/07/2017 5:27 PM 018 5:27 (specimen) EST PM EST Yonathan Smith MD POINT OF CARE TEST ORDERABLE S Performing Organization Address City/[facility]/ZIP Code Phon e Number [address] POCT Glucose (08/07/2017 3:29 PM EST) athologist Signature POC Glucose 86 65 - 199 [facility] mg/dL [facility] Comment: Supplemental ranges: <140 mg/dL before meals <180 mg/dL all other times of the day Specimen Anatomical Collection Method Collection Time Receive d Time (Source) Location / / Volume Laterality Blood specimen 08/07/2017 3:29 PM 018 3:29 (specimen) EST PM EST Yonathan Smith MD POINT OF CARE TEST ORDERABLE S Performing Organization Address City/[facility]/[place] [address] (ABNORMAL) APTT (08/07/2017 2:50 PM EST) athologist Signature PTT 60 (H) 25 - 35 sec [facility] Smith MD HEMATOLOGY ORDERABLES Performing Organization Address City/[facility]/[place] [address] (ABNORMAL) POCT Glucose (08/07/2017 2:23 PM EST) athologist Signature POC Glucose 55 (L) 65 - 199 [facility] Comment: Supplemental ranges: <140 mg/dL before meals <180 mg/dL all other times of the day Specimen Anatomical Collection Method Collection Time Receive d Time (Source) Location / / Volume Laterality Blood specimen 08/07/2017 2:23 PM 018 2:23 (specimen) EST PM EST Yonathan Smith MD POINT OF CARE TEST ORDERABLE S Performing Organization Address City/[facility]/ZIP Code Phon e Number [address] POCT Glucose (08/07/2017 12:08 PM EST) athologist Signature POC Glucose 77 65 - 199 [facility]dL [facility] Comment: Supplemental [...] City/State/ZIP [place] [address] (ABNORMAL) Differential, Automated (08/07/2017 7:30 AM EST) [facility] Method Time Signature Neutrophils % 73.8 % [facility] LABORATORY Neutr Abs (ANC) 7.17 (H) 1.70 - [facility] 6.10 [facility] x10(3)/[facility] LABORATORY Lymphocytes % 12.2 % [facility] LABORATORY Lymphocytes Abs 1.2 0.9 - 3.2 [facility] x10(3)/[facility] LABORATORY Monocytes % 9.0 % [facility] LABORATORY Monocyte Abs 0.9 0.3 - 0.9 [facility] x10(3)/[facility] LABORATORY Eosinophils % 3.9 % [facility] LABORATORY Eosinophils Abs 0.4 0.0 - 0.4 [facility] x10(3)/[facility] LABORATORY Basophils % 0.6 % [facility] LABORATORY Basophils Abs 0.1 0.0 - 0.1 [facility] x10(3)/[facility] LABORATORY Immature Gran % 0.50 % [facility] LABORATORY Comment: Immature granulocytes(IG's)percentage an d absolute count will include metamyelocytes, myelocytes, and promyelo cytes. Blood smears from CBCs yielding IG's will be scanned manually for concor dance. If this scan disagrees with the automated IG or if promyelocytes are not ed, a manual differential will be performed. Melisa Gran Abs 0.05 (H) 0.00 - 0.04 x10(3)/[facility] LABORATORY Specimen Anatomical Collection Method Collection Time Receive d Time (Source) Location / / Volume Laterality Blood specimen 08/07/2017 7:30 AM 018 7:45 (specimen) EST AM EST Resulting Agency Comment Spec In Lab Yonathan Smith MD HEMATOLOGY ORDERABLES Performing Organization Address City/State/ZIP [place] [address] (ABNORMAL) Hemogram (08/07/2017 7:30 AM EST) Analysis Performed At Patho logist Time Signature WBC 9.7 (H) 4.0 - 9.5 [facility] LABORATORY RBC 3.54 (L) 4.58 - [facility] 5.54 [facility] x10(6)/[facility] LABORATORY Hemoglobin 9.9 (L) 13.7 - [facility] 16.5 gm/dL [facility] LABORATORY Hematocrit 32.3 (L) 40.5 - [facility] 48.5 % [facility]ORATORY MCV 91.2 82.9 - [facility] 93.1 [facility] LABORATORY MCH 28.0 27.5 - [facility] 32.1 pg [facility] LAB[facility]ATORY MCHC 30.7 (L) 32.0 - [facility] 35.7 gm/dL [facility] LABORATORY Platelets 312 145 - 357 [facility] x10(3)/[facility] LABORATORY RDWSD 53.2 (H) 36.0 - [facility] 45.0 [facility] LABORATORY RDWCV 16.0 (H) 11.4 - [facility] 13.8 % [facility] LABORATORY MPV 8.9 7.6 - 12.9 [facility] LABORATORY nRBC % Auto 0.0 % [facility] LABORATORY nRBC Abs Auto 0.000 0.000 - [facility] 0.000 [facility] x10(3)/[facility] LABORATORY Specimen Anatomical Collection Method Collection Time Receive d Time (Source) Location / / Volume Laterality Blood specimen 08/07/2017 7:30 AM 018 7:45 (specimen) EST AM EST Resulting Agency Comment Spec In Lab Yonathan Smith MD HEMATOLOGY ORDERABLES Performing Organization Address City/State/[place] [address] (ABNORMAL) Basic Metabolic Panel (non-fasting) (08/07/2017 7:30 AM EST) athologist Signature Glucose Lvl 80 65 - 199 [facility] mg/dL [facility] LABORATORY Comment: Diabetes: >=200 mg/dL plus symp toms BUN 31 (H) 10 - 20 mg/dL [facility] LABORATORY Creatinine 1.22 0.80 - 1.50 mg/dL [facility] LABORATORY Sodium 140 135 - 145 mmol/L [facility] LABOR[facility]ORY Potassium 4.5 3.5 - 5.0 mmol/L [facility] Comment: Please note: ??Patients with WBC >100,00 0 may have falsely elevated Potassium levels. ??For accurate Potassium quantif ication in these patients send serum separator tube (gold top) for subsequent determinations. ??Contact the Clinical Chemistry Laboratory if there are any qu estions. Chloride 99 98 - 107 mmol/L [facility] LABORATORY CO2 29 22 - 31 mmol/L [facility] LABORATORY Anion Gap 12 5 - 15 mmol/L [facility]OR[facility]ORY Calcium 8.5 8.5 - 10.5 mg/dL [facility] Estimated GFR 59 (L) >=60 [facility] Comment: The reported eGFR should be multiplied b y 1.2 for patients. The MDRD is not an appropriate measure o f renal function for patients with body mass extremes or in patients with acute kidney failure. http://[employer]/DHnkdep http://[employer]/DHMCnkf Specimen Anatomical Collection Method Collection Time Receive d Time (Source) Location / / Volume Laterality Blood specimen 08/07/2017 7:30 AM 018 7:45 (specimen) EST AM EST Resulting Agency Comment Spec In Lab Yonathan Smith MD CHEMISTRY ORDERABLES Performing Organization Address City/State/ZIP [place] [address] POCT Glucose (08/07/2017 7:27 AM EST) athologist Signature POC Glucose 81 65 - 199 [facility] mg/dL [facility] LABORATORY Comment: Supplemental ranges: <140 mg/dL before meals <180 mg/dL all other times of the day Specimen Anatomical Collection Method Collection Time Receive d Time (Source) Location / / Volume Laterality Blood specimen 08/07/2017 7:27 AM 018 7:27 (specimen) EST AM EST Yonathan Smith MD POINT OF CARE TEST ORDERABLE S Performing Organization Address City/[facility]/ZIP Code Phon e Number [address] APTT (08/07/2017 7:04 AM EST) athologist Signature PTT 34 25 - 35 sec [facility] [...] Smith MD HEMATOLOGY ORDERABLES Performing Organization Address City/[facility]/[place] [address] (ABNORMAL) Prothrombin Time (08/07/2017 7:04 AM EST) athologist Signature PT 17.3 (H) 11.8 - 14.0 [facility] LABORATORY INR 1.4 (H) 0.9 - 1.1 [facility] [...] Volume Laterality Blood specimen 08/07/2017 7:04 AM 01/13/2 018 7:09 (specimen) EST AM EST Resulting Agency Comment Spec In Lab Yonathan Smith MD HEMATOLOGY ORDERABLES Performing Organization Address City/[facility]/ZIP Code Phon e Number [address] POCT Glucose (08/07/2017 4:03 AM EST) athologist Signature POC Glucose 93 65 - 199 [facility] mg/dL [facility] LABOR[facility] Comment: Supplemental ranges: <140 mg/dL before meals <180 mg/dL all other times of the day Specimen Anatomical Collection Method Collection Time Receive d Time (Source) Location / / Volume Laterality Blood specimen 08/07/2017 4:03 AM 018 4:03 (specimen) EST AM EST Yonathan Smith MD POINT OF CARE TEST ORDERABLE S Performing Organization Address City/[facility]/ZIP Code Phon e Number [address] POCT Glucose (08/07/2017 12:04 AM EST) athologist Signature POC Glucose 107 65 - 199 [facility] mg/dL [facility] LABORATORY Comment: Supplemental ranges: <140 mg/dL before meals <180 mg/dL all other times of the day Specimen Anatomical Collection Method Collection Time Receive d Time (Source) Location / / Volume Laterality Blood specimen 08/07/2017 12:04 8 (specimen) AM EST 12:04 AM EST Yonathan Smith MD POINT OF CARE TEST ORDERABLE S Performing Organization Address City/[facility]/ZIP Code Phon e Number [address] POCT Glucose (08/06/2017 7:56 PM EST) athologist Signature POC Glucose 178 65 - 199 [facility] mg/dL [facility] Comment: Supplemental [...] Address City/State/ZIP Code [place] [address] [id number] (08/06/2017 2:32 PM EST) Component Value Ref Test Analysis Performed At [facility] gist Range Method Time Signature VB Text Department: Vascular Surgery Lab VASCUBASE Report Patient: [id number] (GREGORY HOANG) CPT: 5306114 ICD10: I99.8 Referring Physician: YONATHAN SMITH ?? [...] RN)2012 (Given - Provider: Henrique Marks RN) 0808 (Given - Provider: Chiquis Mcgrath RN)2022 (Given [...] Provider: Chiquis muñoz RN)1230 (Given - Provider: Chiuqis Mcgrath RN)1708 (Given - Provider: Chiquis Mcgrath [...] parameters not met)0400 (Not Given - Provider: Hnerique Marks RN [...] Mira Truong, RN)0749 (Given - Provider: Dory Truong RN)1200 [...] 174)2008 (Given - Provider: Henrique Marks RN) 1199 (Not Given - Provider: Chiquis Mcgrath RN - Reason: Order parameters not met - Comment: BG 135)1707 (Given - Provider: Chiquis Mcgrath, RN)2024 (Not Given - Provider: Mira Truong, VAMSI - Reason: Order parameters not met) ve 6 units BG greater than 240, give 8 u nits and recheck BG in 2 hours. If less than 240 after two hours, give no insulin and resume prior schedule. If BG remains greater than 240, repeat 8 units (no mo 235 ( Given - Provider: Mira Truong, RN) re than three times) & call for new basa l insulin orders. DO NOT hold if NPO, unless specifically told to do so., Routine levothyroxine (SYNTHROID) tablet 175 mcg 0501 (Given - Provider: Henrique Marks RN) 0502 (Given - Provider: Henrique Marks, RN) 0631 (G iven - Provider: Mira Truong, RN) 175 mcg, Oral, EVERY MORNING, First dose on Wed08/07/17 at 0600, Until Discontinued, Routine lidocaine (LIDODERM) 5 % patch 1 patch(Linked Group 2) 1732 (Not Given - Provider: Chiquis Mcgrath, VAMSI - Reason: Patient/family refused) 1699 (Not Given - Provider: Chiquis Mcgrath RN - Reason: Patient/family refused)2021 (Patch Applied - Provider: Mira Truong, VAMSI - Comment: right foot) 1 patch, Transdermal, [...] (Give n - Provider: Chiquis Mcgrath RN) 08 (Given - Provider: Chiquis Mcgrath RN) 0800 (G iven - Provider: Dory Truong RN) 2.5 mg, Oral, DAILY, First dose on Sat at 0900, Until Discontinued, Routine magnesium oxide (MAG-OX) tablet 400 mg 0826 (Given - P rovider: Chiquis Mcgrath RN)2010 (Given - Provider: Henrique Mraks RN) 807 (Given - Provider: Chiquis Mcgrath [...] RN) 0808 (Given - Provider: Chiquis Mcgrath RN)2025 (Given - Provider: Mira Truong, RN) 0800 [...] Henrique Marks RN)0824 (Given - Provider: Chiquis Mcgrath, VAMSI)1135 (Given - Provider: Chiquis Mcgrath, VAMSI)1751 (Given - Provider: Chiquis Mcgrath RN) 0157 (Given - Provider: Melba Jaramillo, VAMSI)0807 (Given - Provider: Chiquis Mcgrath, VAMSI)1159 (Given - Provider: Chiquis Mcgrath RN)1542 (Given - Provider: Kim Borges RN)2144 (Given - Provider: Alyson Middleton, RN) 0427 (Given - Provider: Mira Truong [...]
Routine documented in this encounter Care Teams Chair Car Driver Relationship Specialty Start Date End Date Lovely Vicente MD PCP - General 04/16/15 [address] [place] [address] documented as of this encounter
--- OUTSIDE RECORDS SUMMARY | 2022-02-20 01:44 | XMS_ITS | Encounter Summary ---
:1945 Author Organization [place] [address] Care Team Providers Name Role Phone Lovely Vicente MD Primary Care Provider Reason for Visit Reason Comments Foot Ulcer WOUND CHECK Auth/Cert Specialty Diagnoses / Procedures Referred By Contact Refer red To Contact Diagnoses Critical lower limb ischemia CELLULITIS RT FOOT Procedures EMERGENCY Referral ID Status Reason Start Date Expiration Date Visits Requ ested Visits Authorized [id number] 1 1 Encounter Details Date Type Department Care Team Description 08/06/2017 [facility] ischemia [facility] [address] [place], [place] VASCULAR SURGERY [id number] [place] [address] [phone] Social History Tobacco Use Types Packs/Day Years [...] Smith MD - 08/06/2017 1:00 PM EST [facility] staff: 1. RIGHT leg CLI Interval Hx: [...] Vitaliy Nobles MD [facility] CARDIOLOGY [place], [place] [address] (Wo rk) documented as of this encounter Visit Diagnoses Diagnosis Critical lower limb ischemia Unspecified circulatory system disorder documented in this encounter Care Teams Jump Roll Operator Relationship Specialty Start Date End Date Lovely Vicente MD PCP - General 04/16/15 [address] [place] [address] documented as of this encounter
--- OUTSIDE RECORDS SUMMARY | 2022-02-20 01:44 | XMS_ITS | Encounter Summary ---
:1945 Author Organization [facility] [place] [address] Care Team Providers Name Role Phone Lovely Vicente MD Primary Care Provider Reason for Visit Auth/Cert Specialty Diagnoses / Procedures Referred By Contact Refer red To Contact Diagnoses Critical lower limb ischemia CELLULITIS RT FOOT Procedures EMERGENCY Referral ID Status Reason Start Date Expiration Date Visits Requ ested Visits Authorized [id number] 1 1 Encounter Details Date Type Department Care Team Description 08/06/2017 Hospital Encounter [facility] [address] Social History Tobacco Use Types Packs/Day [...] Vitaliy Nobles MD [facility] CARDIOLOGY [place], [place] [address] (Wo rk) documented as of this encounter Visit Diagnoses Not on filedocumented in this encounter Care Teams Travel Assistant Relationship Specialty Start Date End Date Lovely Vicente MD PCP - General 04/16/[address] [place] [address] documented as of this encounter
--- OUTSIDE RECORDS SUMMARY | 2022-02-20 01:45 | XMS_ITS | Encounter Summary ---
:1945 [place] [address] Care Team Providers Name Role Phone Lovely Vicente MD Primary Care Provider Encounter Details Date Type Department Care Team Description 07/29/2017 Telephone Pain Aurelia Crawford MD [facility] [place] [address] PAIN CLINIC [phone] [place], [place] [address] (Wo rk) Social History Tobacco [...] Office Visit Cardiology Vitaliy Nobles MD [facility] ER CARDIOLOGY [place], [place] [address] (Wo rk) documented as of this encounter Visit Diagnoses Not on filedocumented in this encounter Care Teams Supervisor [employer]ar [employer] Relationship Specialty Start Date End Date Lovely Vicente MD PCP - General 04/16/[address] [place] [address] documented as of this encounter
--- OUTSIDE RECORDS SUMMARY | 2022-02-20 01:45 | XMS_ITS | Encounter Summary ---
:1945 [place] [address] Care Team Providers Name Role Phone Lovely Vicente MD Primary Care Provider Encounter Details Date Type Department Care Team Description 07/29/2017 Hospital Encounter Vascular Lab at [facility] Huber lower limb [facility] [place] [id number] Social History Tobacco Use Types Packs/Day Years [...] Visit Cardiology Vitaliy Nobles MD [facility] ER CARDIOLOGY [place], [place] [address] (Wo rk) documented as of this encounter Visit Diagnoses Diagnosis Critical lower limb ischemia Unspecified circulatory system disorder documented in this encounter Care Teams Industrial Maintenance Technician Relationship Specialty Start Date End Date Lovely Vicente MD PCP - General 04/16/[address] [place] [address] documented as of this encounter
--- OUTSIDE RECORDS SUMMARY | 2022-02-20 01:45 | XMS_ITS | Encounter Summary ---
:1945 Author Organization [facility] [place] [address] Care Team Providers Name Role Phone Lovely Vicente MD Primary Care Provider Encounter Details Date Type Department Care Team Description 07/29/2017 Transcribe Orders Laboratory Lovely Vicente MD [place] [address] [employer] [address] [address] [place], [place] [phone] (Wo rk) Social History Tobacco Use Types [...] MD [facility] ER CARDIOLOGY [place], [place] [address] (Wo rk) documented as of this encounter Visit Diagnoses Not on filedocumented in this encounter Care Teams Noc Analyst Relationship Specialty Start Date End Date Lovely Vicente MD PCP - General 04/16/15 [employer] [address] [address] [address] documented as of this encounter
--- OUTSIDE RECORDS SUMMARY | 2022-02-20 01:45 | XMS_ITS | Encounter Summary ---
:1945 [place] [address] Care Team Providers Name Role Phone Lovely Vicente MD Primary Care Provider Reason for Visit Reason Comments Hospital Transfer cold foot post CABG Auth/Cert Specialty Diagnoses / Procedures Referred By Contact Refer red To Contact Diagnoses Critical lower limb ischemia Procedures NAYE IPI Referral ID Status Reason Start Date Expiration Date Visits Requ ested Visits Authorized [id number] 1 1 Encounter Details Date Type Department Care Team Description 07/20/2017 Hospital Encounter 4 Herminia Ibarra MD [facility] [place] [address] Critical lower limb [facility] Arik Clement MD [facility] [place] [address] [place] [address] Social History Tobacco Use Types Packs/Day Years [...] home. Important Studies and Lab Data: Labs: [facility] Results Component Value Date INR 1.5 [...] For any problems or questions please call [phone] ZELDA Smith, invoice machine operator Nurse Clinician For issues on weeknights after 5pm and weekends please call [phone] and ask for the Vascular Fellow security solutions engineer. General Instructions None Future Appointments and Orders Future Appointments Provider Department Dept Phone 08/04/2017 1:00 PM Daniele Mooney [place] [facility] [place] [phone] 08/04/2017 2:15 PM Arik Clement MD Vascular Surgery at [place] [phone] 09/07/2017 3:00 PM MAYRA CHACON Lab [facility] [phone] 09/07/2017 4:00 PM Luz Prescott MD Endocrinology at [place] [phone] Future Orders Complete By Expires Arterial Duplex Leg, Unil [VAS32 Custom] 07/27/2017 (Approximate) 01/26/2018 Process Instructions: There is no in-house vascular ammunition assembly laborer available on weeknights (5pm-8am), weekends, or holidays. IF THIS IS A REQUEST FOR AN EMERGENT STUDY DURING THOSE HOURS, please have the senior provider responsible for the patient page the Vascular Surgery Fellow/Senior Resident security solutions engineer to discuss options. Scheduling Instructions: Questions: Indication for study/signs & symptoms: Right femoral PSA s/p cardiac cath Question to be answered: bloodflow to PSA Laterality: Right Is there a RIGHT LOWER EXTREMITY graft?: No Lower limb right segments: Common Femoral Is there a stent?: No At which location will this be performed?: [place] Referral to Home Health - at DISCHARGE [[id number] CPT(R)] As directed Process Instructions: Scheduling Instructions: Comments: DOCUMENTATION FOR VNA SERVICES (INCLUDING THOSE PATIENTS WITH MEDICARE COVERAGE REQUIRING HOME VNA SERVICES AND/OR HOSPICE SERVICES) PATIENT'S LOCATION: Gregory Fatima [address] [place] [address] [place] [phone] (home) Cell: Telephone Information: Custodian Blood Bank's Name: self In discussion with the attending physician, it is certified that this patient is under their care and that they, or a Nurse Practitioner,Clinical Nurse specialist or Physician Medical Language Specialist who is working directly with them, [...] CARE AGENCY: [facility] ([facility] [place] [facility]-is in [place]) PHONE: [phone] FAX: [phone] Start of care: 24- 48 hours FOR [...] patient'sPCP: Lovely Vicente MD [address] [facility] [place] / [place] [address] All VNA agencies which cover the area [...] For any problems or questions please call [phone] ZELDA Smith, invoice machine operator Nurse Clinician For issues on weeknights after 5pm and weekends please call [phone] and ask for the Vascular Fellow security solutions engineer. documented in this encounter Medications at [...] RN - 07/20/2017 2:53 PM EST The patient/personnel representative has been provided a list of Home Health Agencies/DME vendors which serve their preferred geographic area. A letter describing our affiliations was reviewed with them and theywere educated about their right to choose where referrals are placed. Patient requests referral to [facility]. PHONE: [phone] FAX: [phone]. Expected date of discharge: 07/20/2017 . Referral routed to the Framing Carpenter for matching with agency/vendor and to provide any required information. Naty Pulliam RN - 07/20/2017 11:37 AM EST The patient/personnel representative has been provided a list of Home Health Agencies/DME vendors which serve their preferred geographic area. A letter describing our affiliations was reviewed with them and theywere educated about their right to choose where referrals are placed. Patient requests referral to [facility] ([facility] [place] [facility]- is in [facility] PHONE: [phone] FAX: [phone]. Expected date of discharge: 07/20/2017 . Referral routed to the Framing Carpenter for matching with agency/vendor and to provide any required information. Katina Pulliam RNtalent management specialist Janneth Lee MD - 07/20/2017 7:29 [...] SETUP performed by Manny Mcknight MD at [facility] MAIN OR ??? PRO CABG, ARTERIAL, SINGLE N/A 07/07/2017 @CABG, USING ARTERIAL GRAFT;SINGLE ARTERIAL GRAFT (WRVU 33.75) performed by Yuan Retana MD at [facility] MAIN OR ??? PRO CABG, ARTERY-VEIN, TWO N/A 07/07/2017 @CABG, TWO VENOUS GRAFTS & ARTERIAL GRAFT (WRVU 7.93) performed by Yuan Retana MD at [facility] MAIN OR ??? PRO COLONOSCOPY, REMV LESN, SNARE 01/16/2014 COLONOSCOPY, POLYPECTOMY, REMOVAL LESION BY SNARE performed by Nohemi Jaimes MD at [facility] ENDOSCOPY ??? PRO ENDOSCOPY W/VIDEO-ASST VEIN HARVEST, CABG Right 07/07/2017 ENDOSCOPIC HARVEST VEIN(S) FOR CABG (WRVU 0.31) performed by Yuan Retana MD at [facility] MAIN OR ??? PRO THYROIDECTOMY 03/28/2013 THYROIDECTOMY, TOTAL OR COMPLETE performed by Manny Mcknight MD at [facility] MAIN OR Functional Status/Social Hx: Social History [...] -ISS -pain control Discussed with Vascular Fellow security solutions engineer. Chris Valadez MD PGY2 Pager [phone] documented in this encounter ED Notes Annita Reaves MD - 07/20/2017 3:15 PM EST Emergency Department Gregory Fatima is a 72 y.o. male who presents to [facility] with arterial thrombosis. History of Present Illness [...] 04/05/2013 Hospitalizations Within the Past 30 Days: [facility] 07/05/17 Anticipated Length Of Stay (If known): [...] Health/Prescription Coverage: Primary Insurance: MEDICARE Secondary Insurance: [employer] [facility] Prescription Coverage: See above Preferred Pharmacy: [facility] Other: N/A Primary Care Provider: Lovely Vicente MD [phone] Patient/Caregiver Goals of Treatment: Patient plans to return home when medically ready Potential Needs for Transition of Care: Rehab/SNF: N/A Home Health: [facility] ([facility] [place] [facility]-is in [place]) PHONE: [phone] FAX: [phone] DME: N/A Dialysis: N/A Community Resources: N/A Transportation: Patient family will transport Other: N/A Anticipated Barriers to Discharge/Special Considerations: None Plan: Patient plans to return home with home health services when medically ready A member of the Care Management team will continue to monitor progress, follow for continuity of care and assist with transition of care planning. Naty Pulliam RN Pager: [phone] ED Triage - Rayna Weir RN - 07/20/2017 12:28 AM EST Pt transferred from [place] for blue right foot and painful toes. [...] Visit Cardiology Vitaliy Nobles MD [facility] [address] [place], [place] [address] (Wo rk) documented as of this encounter Procedures Procedure Name Priority Date/Time Associated Comments Diagnosis TECHNICIAN TRAINEE SCAN 09/02/2017 12:00 Res ults for this [...] TO LAB EST procedure are i n ([facility]) the results section. APTT STAT 07/20/2017 2:25 AM Results f or this EST procedure are i n the results section. PROTHROMBIN TIME STAT 07/20/2017 2:25 AM Resul ts for this EST procedure are i n the results section. BASIC METABOLIC PANEL STAT 07/20/2017 2:25 AM Results for this (NON-FASTING) EST procedure are in the results section. documented in this encounter Results SCAN DOC: TECHNICIAN TRAINEE (09/02/2017 12:00 AM EST) Narrative 09/02/2017 12:00 AM EST This result has an attachment that is no t available. Ordered by an unspecified provider. Scanning Provider MEDIA MGR SCAN EXT ORDR/RSLT POCT Glucose (07/20/2017 12:04 PM EST) athologist Signature POC Glucose 189 65 - 199 [facility] Comment: Supplemental ranges: <140 mg/dL before meals <180 mg/dL all other times of the day Specimen Anatomical Collection Method Collection Time Receive d Time (Source) Location / / Volume Laterality Blood specimen 07/20/2017 12:04 7 (specimen) PM EST 12:04 PM EST Arik Clement MD POINT OF CARE TEST ORDERABLE S Performing Organization Address City/State/[place] [address] (ABNORMAL) Differential, Automated (07/20/2017 10:34 AM EST) Patholo gist Method Time Signature Neutrophils % 84.3 % [facility] LABORATORY Neutr Abs (ANC) 14.27 (H) 1.70 - [facility] 6.10 [facility] x10(3)/[facility] L LABORATORY Lymphocytes % 5.6 % [facility] LABORATORY Lymphocytes Abs 1.0 0.9 - 3.2 [facility] x10(3)/[facility] LABORATORY Monocytes % 6.1 % [facility]OR[facility]ORY Monocyte Abs 1.0 (H) 0.3 - 0.9 [facility] x10(3)/[facility] LABORATORY Eosinophils % 2.4 % [facility] LABOR[facility]ORY Eosinophils Abs 0.4 0.0 - 0.4 [facility] x10(3)/[facility] LABORATORY Basophils % 0.5 % [facility] LABOR[facility]ORY Basophils Abs 0.1 0.0 - 0.1 [facility] x10(3)/[facility] LABORATORY Immature Gran % 1.10 % [facility] Comment: Immature granulocytes(IG's)percentage an d absolute count will include metamyelocytes, myelocytes, and promyelo cytes. Blood smears from CBCs yielding IG's will be scanned manually for concor dance. If this scan disagrees with the automated IG or if promyelocytes are not ed, a manual differential will be performed. Melisa Gran Abs 0.19 (H) 0.00 - 0.04 x10(3)/[facility] LABORATORY Specimen Anatomical Collection Method Collection Time Receive d Time (Source) Location / / Volume Laterality Blood specimen 07/20/2017 10:34 7 (specimen) AM EST 10:39 AM EST Resulting Agency Comment Spec In Lab Arik Clement MD HEMATOLOGY ORDERABLES Performing Organization Address City/State/[place] [address] (ABNORMAL) Hemogram (07/20/2017 10:34 AM EST) Analysis Performed At Patho logist Time Signature WBC 17.0 (H) 4.0 - 9.5 [facility] x10(3)/[facility] LABORATORY RBC 3.70 (L) 4.58 - [place] 5.54 [facility] x10(6)/[facility] LABORATORY Hemoglobin 10.8 (L) 13.7 - [place] 16.5 gm/dL [facility] LABORATORY Hematocrit 33.4 (L) 40.5 - [place] 48.5 % [facility] LABORATORY MCV 90.3 82.9 - [facility] R[place] 93.1 [facility] LABORATORY MCH 29.2 27.5 - [place] 32.[address] [facility] LABORATORY MCHC 32.3 32.0 - [place] 35.7 gm/dL [facility] LABORATORY Platelets 211 145 - 357 [facility] x10(3)/[facility] LABORATORY RDWSD 49.1 (H) 36.0 - [place] 45.0 [facility] LABORATORY RDWCV 14.7 (H) 11.4 - [facility] 13.8 % [facility] LABORATORY MPV 9.2 7.6 - 12.9 [facility] LABORATORY nRBC % Auto 0.0 % [facility] LABORATORY nRBC Abs Auto 0.000 0.000 - [place] 0.000 [facility] x10(3)/[facility] LABORATORY Specimen Anatomical Collection Method Collection Time Receive d Time (Source) Location / / Volume Laterality Blood specimen 07/20/2017 10:34 7 (specimen) AM EST 10:39 AM EST Resulting Agency Comment Spec In Lab Arik Clement MD HEMATOLOGY ORDERABLES Performing Organization Address City/State/[place] [address] (ABNORMAL) APTT (07/20/2017 10:34 AM EST) P athologist Signature PTT 79 (H) 25 - 35 sec [facility] Comment: The recommended therapeutic range for fu ll dose, unfractionated heparin at [facility] is 80 ? 114 seconds. The use [...] Clement MD HEMATOLOGY ORDERABLES Performing Organization Address City/[facility]/ZIP Code Phon e Number [address] POCT Glucose (07/20/2017 7:41 AM EST) P athologist Signature POC Glucose 174 65 - 199 [facility] mg/dL [facility] Comment: Supplemental ranges: <140 mg/dL before meals <180 mg/dL all other times of the day Specimen Anatomical Collection Method Collection Time Receive d Time (Source) Location / / Volume Laterality Blood specimen 07/20/2017 7:41 AM 017 7:41 (specimen) EST AM EST Arik Clement MD POINT OF CARE TEST ORDERABLE S Performing Organization Address City/[facility]/ZIP Code Phon e Number [address] JULIAN, legs, multiple levels (07/20/2017 7:33 AM EST) Component Value Ref Test Analysis Performed At Patholo gist Range Method Time Signature VB Text Department: Vascular Surgery Lab VASCUBASE Report Patient: [id number] (GREGORY FATIMA) CPT: 88699 ICD10: I75.021;I99.8 Referring Physician: ARIK CLEMENT ?? [...] Analysis Performed At [facility] Range Method Time Signature VB Text Department: Vascular Surgery Lab VASCUBASE Report Patient: [id number] (GREGORY FATIMA) CPT: 02697 ICD10: I97.610;I99.8 Referring Physician: ARIK CLEMENT ?? [...] Signature POC Glucose 199 65 - 199 [facility] mg/dL [facility] Comment: Supplemental ranges: <140 mg/dL before meals <180 mg/dL all other times of the day Specimen Anatomical Collection Method Collection Time Receive d Time (Source) Location / / Volume Laterality Blood specimen 07/20/2017 3:41 AM 017 3:41 (specimen) EST AM EST Arik Clement MD POINT OF CARE TEST ORDERABLE S Performing Organization Address City/State/[place] [address] Lactate, whole blood, send to lab (Leb/CGP) (07/20/2017 2:25 AM EST) athologist Signature Lactate WB 2.0 0.5 - 2.2 [facility] mmol/L [facility] Specimen Anatomical Collection Method Collection Time Receive d Time (Source) Location / / Volume Laterality Blood specimen Venous Draw / 07/20/2017 2:25 AM 2016 2:37 (specimen) Unknown EST AM EST Resulting Agency Comment Spec In Lab Zulma Samuel MD CHEMISTRY ORDERABLES Performing Organization Address City/[facility]/[place] [address] (ABNORMAL) APTT (07/20/2017 2:25 AM EST) P athologist Signature PTT 36 (H) 25 - 35 sec [facility] Comment: The recommended therapeutic range for fu ll dose, unfractionated heparin at [facility] is 80 ? 114 seconds. The use [...] Reaves MD HEMATOLOGY ORDERABLES Performing Organization Address [facility] [place] [address] (ABNORMAL) Prothrombin Time (07/20/2017 2:25 AM EST) P athologist Signature PT 17.7 (H) 11.8 - 14.0 [facility] LABORATORY INR 1.5 (H) 0.9 - 1.1 [facility] [...] Reaves MD HEMATOLOGY ORDERABLES Performing Organization Address [facility] [place] [address] (ABNORMAL) Basic Metabolic Panel (non-fasting) (07/20/2017 2:25 AM EST) athologist Signature Glucose Lvl 187 65 - 199 [facility] mg/dL [facility] Comment: Diabetes: >=200 mg/dL plus symp toms BUN 35 (H) 10 - 20 mg/dL [facility] Creatinine 1.51 (H) 0.80 - 1.50 mg/dL [facility] Sodium 134 (L) 135 - 145 mmol/L [facility] Potassium Not Perf 3.5 - 5.0 mmol/L [facility] Comment: Specimen hemolyzed. Called by: [facility], Read back by: Chitra Orantes, Date/Time:07/20/17 03:05. Please note: ??Patients with WBC >100,00 0 may have falsely elevated Potassium levels. ??For accurate Potassium quantif ication in these patients send serum separator tube (gold top) for subsequent determinations. ??Contact the Clinical Chemistry Laboratory if there are any qu estions. Chloride 92 (L) 98 - 107 mmol/L [facility] CO2 29 22 - 31 mmol/L [facility] Anion Gap 13 5 - 15 mmol/L [facility] Calcium 8.6 8.5 - 10.5 mg/dL [facility] Estimated GFR 46 (L) >=60 [facility] Comment: The reported eGFR should be multiplied b y 1.2 for patients. The MDRD is not an appropriate measure o f renal function for patients with body mass extremes or in patients with acute kidney failure. http://Lontra.WeDeliver/DHnkdep http://Logopro/DHMCnkf Specimen Anatomical Collection Method Collection Time Receive d Time (Source) Location / / Volume Laterality Blood specimen 07/20/2017 2:25 AM 017 2:33 (specimen) EST AM EST Resulting Agency Comment Spec In Lab Annita Reaves MD CHEMISTRY ORDERABLES Performing Organization Address City/State/ZIP Code [place] [address] documented in this encounter [...] Unit s 0-8,000 Units, Intravenous, BOLUS PER MIKKI RUBIO PROTOCOL, Starting on Wed07/20/17 at 0424, Until [...] 400 mg, Oral, DAILY, First dose on Wed09/20/16 at 0900, Until Discontinued, Routine atorvastatin (LIPITOR) [...] Medication not available)0759 (Given - Provider: Laura Vega, VAMSI)1222 (Given - Provider: Laura Vega, VAMSI) 1-4 Units, Subcutaneous, EVERY 4 HOURS S [...] hours with A.M. labs while on he adwoa. RN to order required aPTT - Per [...] Group 2) 0-8,000 Units, Intravenous, BOLUS PER ADWOA PROTOCOL, Starting Wed07/20/17 at 0424, Until Wed07/20/17 [...]
Routine documented in this encounter Care Teams Box Inspector Relationship Specialty Start Date End Date Lovely Vicente MD PCP - General 04/16/[address] [place] [address] documented as of this encounter
--- OUTSIDE RECORDS SUMMARY | 2022-02-20 01:45 | XMS_ITS | Encounter Summary ---
:1945 Author Organization [facility] [place] [address] Care Team Providers Name Role Phone Lovely Vicente MD Primary Care Provider Encounter Details Date Type Department Care Team Description 08/02/2017 Telephone Pain Management at [place], [place] [address] Social History Tobacco Use Types Packs/Day [...] Management Center Preauthorization Request Patient: Don Fatima [id number] Fax received from [facility] requesting we obtain prior authorization for Lidocaine patches prescribed by Barbra Soares APRN. RX insurance plan: [employer] RX insurance telephone: [phone] Patient Diagnosis: right foot pain secondary to PVD and ischemia Previous medications attempted: Tylenol, Tramadol, Dilaudid The following action was taken after discussion with the crane service technician: _x_ pharmacy informed Authorized dosage or amount: 5% on patch on for 12 hours, then remove for 12 hours. Angeles Rodrigez, RN documented in this encounter Plan of Treatment Upcoming Encounters Date Type Specialty Care Team Description 03/26/2022 Office Visit Cardiology Vitaliy Nobles MD [facility] CARDIOLOGY [place], [place] [address] (Wo rk) documented as of this encounter Visit Diagnoses Not on filedocumented in this encounter Care Teams Tape Controlled Machine Stitcher Relationship Specialty Start Date End Date Lovely Vicente MD PCP - General 04/16/[address] [place] [address] documented as of this encounter
--- OUTSIDE RECORDS SUMMARY | 2022-02-20 01:45 | XMS_ITS | Encounter Summary ---
:1945 [place] [address] Care Team Providers Name Role Phone Lovely Vicente MD Primary Care Provider Encounter Details Date Type Department Care Team Description 08/04/2017 Notes Only Pain Management at Barbra Bruno, STACIE [facility] [place] [address] [place] [address] [phone] (Wo rk) Social History Tobacco Use Types [...] bid) at this time. Barbra Soares, MSN, INSPECTOR RETURNED [employer]S-[employer], [facility] documented in this encounter Plan of Treatment Upcoming Encounters Date Type Specialty Care Team Description 03/26/2022 Office Visit Cardiology Vitaliy Nobles MD [facility] CARDIOLOGY [place], [place] [address] (Wo rk) documented as of this encounter Visit Diagnoses Not on filedocumented in this encounter Care Teams [employer] Principal Relationship Specialty Start Date End Date Lovely Vicente MD PCP - General 04/16/[address] [place] [address] documented as of this encounter
--- OUTSIDE RECORDS SUMMARY | 2022-02-20 01:45 | XMS_ITS | Encounter Summary ---
:1945 Author Organization [facility] [place] [address] Care Team Providers Name Role Phone Lovely Vicente MD Primary Care Provider Reason for Visit Auth/Cert Specialty Diagnoses / Procedures Referred By Contact Refer red To Contact Diagnoses Critical lower limb ischemia CELLULITIS RT FOOT Procedures EMERGENCY Referral ID Status Reason Start Date Expiration Date Visits Requ ested Visits Authorized [id number] 1 1 Encounter Details Date Type Department Care Team Description 08/04/2017 [facility] [place] thrombosis of [facility] [place] [phone] Social History Tobacco Use Types Packs/Day Years [...] Vitaliy Nobles MD [facility] CARDIOLOGY [place] [address] (Wo rk) documented as of this encounter Procedures Procedure Name Priority Date/Time Associated Diagnosis Comme nts DUPLEX FOR DVT, STAT 08/04/2017 1:08 PM 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 documented in this encounter Results Duplex for DVT, Leg, Unilat (08/04/2017 1:08 PM EST) Component Value Ref Test Analysis Performed At [facility] Range Method Time Signature VB Text Department: Vascular Surgery Lab VASCUBASE Report Patient: [id number] (DON HOANG) CPT: 48541 ICD10: I82.541 Referring Physician: TAMIKO HUTSON ?? [...] extremity documented in this encounter Care Teams Neon Sign Mechanic Relationship Specialty Start Date End Date Lovely Vicente MD PCP - General 04/16/[address] [place] [address] documented as of this encounter
--- OUTSIDE RECORDS SUMMARY | 2022-02-20 01:45 | XMS_ITS | Encounter Summary ---
:1945 Author Organization [facility] [place] [address] Care Team Providers Name Role Phone Lovely Vicente MD Primary Care Provider Reason for Visit Reason Comments Foot Pain Auth/Cert Specialty Diagnoses / Procedures Referred By Contact Refer red To Contact Diagnoses Ischemic foot Procedures NAYE OBSVO Referral ID Status Reason Start Date Expiration Date Visits Requ ested Visits Authorized [id number] 1 1 Encounter Details Date Type Department Care Team Description 07/27/2017 Emergency [facility] Lokesh Swenson MD [facility] [address] [place]ER[place] [address] Femoral artery pseudo-aneurysm, right; [facility] Tam Bauman MD [facility] [address] [place] [address] [place] [address] Social History Tobacco Use Types Packs/Day [...] Gregory Fatima Patient Age: 72 y.o. Language: Danish Race: White Ethnicity: Not nor Admit date: [...] please contact your inpatient physician through the [facility] Tong Carrier . Issues after hours and on weekends [...] RLE critical limb ischemia, who presented to [facility] with worsening RLE pain. Pt post-op course after CABG was significant for paroxysmal Afib, and he was started on Coumadin given elevated [id number] score. He presented 2 weeks following that, on 07/20, with RLE pain/pallor andwas found to have critical limb ischemia in setting of subtherapeutic INR, pseudoaneurysm Rt [employer] and occlusion b/l ant tibial arteries. He [...] in the last 7068 hours. Invalid input(s): [id number] Recent Labs 07/08/17 0400 07/07/17 0515 07/06/17 [...] (it was low at 1.6 here at [facility]) 7. Use the tramadol if dilaudid or tylenol is not working 8. Stop taking the potassium supplement - your blood potassium level was elevated. Ask your doctors at future visits if this should be restarted. 9. Antibiotic for 5 days recommended by cardiothoracic surgery for chest wound drainage Follow-Up Appointments Vascular surgery as previously schedule Your Inpatient Doctor(s) at [facility]: CARLOS ALBERTO ROSALES MD General Instructions None Future Appointments and Orders Future Appointments Provider Department Dept Phone 07/30/2017 8:30 AM [place], THREE L Lab 3L [facility] [phone] 07/30/2017 9:40 AM Danette Maxwell APRN Cardiology at [place] [phone] 08/04/2017 1:00 PM aDniele Mooney [place] Vascular Lab at [place] [phone] 08/04/2017 2:15 PM Arik Clement MD Vascular Surgery at [place] [phone] 08/11/2017 10:00 AM [facility] ROOM 2 XRay at [place] [phone] Please go to [facility] Area 3T ([place] Location). 08/11/2017 11:00 AM Yuan Retana MD Cardiac Surgery at [place] [phone] 09/07/2017 3:00 PM LAB, THREE L Lab 3L [facility] [phone] 09/07/2017 4:00 PM Luz Prescott MD Endocrinology at [place] [phone] Discharge References/Attachments None documented in this encounter [...] (it was low at 1.6 here at [facility]) 3. Use the tramadol if dilaudid or tylenol is not working 4. Stop taking the potassium supplement - your blood potassium level was elevated. Ask your doctors at future visits if this should be restarted. 5. Antibiotic for 5 days recommended by cardiothoracic surgery for chest wound drainage Follow-Up Appointments Vascular surgery as previously schedule Your Inpatient Doctor(s) at [facility]: CARLOS ALBERTO ROSALES MD documented in this [...] Gas) No results found for: PHART, PO2ART, ABD4VMG Assessment/Plan: 72 y.o. male s/p CABG in [...] intervention: Education Nutrition Recommendations: Recommend continuation of [facility], CHO2 diet order Patient and denied need [...] Orders Diet Daily Healthy Menu Choices/Cardiac diet ([facility]-Diet) 60/ CHO counting level 2 Frequency: Effective Now Number of Occurrences: Until Specified Admit Weight: 83.92 kg Estimated body mass index is 28.13 kg/(m^2) as calculated from the following: Height as of this encounter: 172.7 cm (5' 8). Weight as of this encounter: 83.9 kg (185 lb). [place] body weight: 68.4 kg (150 lb 12.7 [...] RLE critical limb ischemia, who presented to [facility] with worsening RLE pain. Visited with patient [...] spent >30 minutes (Day of Discharge Code 94127) involved in the final examination of the [...] Melanoma ID: 72 y.o. Male presents to [facility] with persistent pain b/l lower extremities History of Present Illness: HPI 72 y.o. male with PMH ASCVD s/p CABG (07/07/17), MARIA VICTORIA on CPAP QHS, HTN, HLD, DM2, with recent hospitalization for RLE critical limb ischemia, who presented to [facility] with worsening RLE pain. Pt post-op course after CABG was significant for paroxysmal Afib, and he was started on Coumadin given elevated THHT3FEOAT score. He presented 2 weeks following that, on 07/20, with RLE pain/pallor andwas found to have critical limb ischemia in setting of subtherapeutic INR, pseudoaneurysm Rt [employer] and occlusion b/l ant tibial arteries. He [...] SETUP performed by Manny Mcknight MD at [facility] MAIN OR ??? PRO CABG, ARTERIAL, SINGLE N/A 07/07/2017 @CABG, USING ARTERIAL GRAFT;SINGLE ARTERIAL GRAFT (WRVU 33.75) performed by Yuan Retana MD at [facility] MAIN OR ??? PRO CABG, ARTERY-VEIN, TWO N/A 07/07/2017 @CABG, TWO VENOUS GRAFTS & ARTERIAL GRAFT (WRVU 7.93) performed by Yuan Retana MD at [facility] MAIN OR ??? PRO COLONOSCOPY, REMV LESN, SNARE 01/16/2014 COLONOSCOPY, POLYPECTOMY, REMOVAL LESION BY SNARE performed by Nohemi Jaimes MD at [facility] ENDOSCOPY ??? PRO ENDOSCOPY W/VIDEO-ASST VEIN HARVEST, CABG Right 07/07/2017 ENDOSCOPIC HARVEST VEIN(S) FOR CABG (WRVU 0.31) performed by Yuan Retana MD at [facility] MAIN OR ??? PRO THYROIDECTOMY 03/28/2013 THYROIDECTOMY, TOTAL OR COMPLETE performed by Manny Mcknight MD at [facility] MAIN OR Prior To Admission Medications: [...] Procedure Component Value Units Date/Time Blood culture [[id number]] Collected: 07/09/1739 Lab Status: Final result Specimen: Blood from Arm, Right Updated: 07/14/17701 Blood Culture No growth at 5 days. Blood culture [[id number]] Collected: 07/09/170 Lab Status: Final result Specimen: [...] limb ischemia following CABG, who presented to [facility] ED from home with persistent B/L LE [...] continued Diet Daily Healthy Menu Choices/Cardiac diet ([facility]-Diet) 60/60/75 CHO counting level 2Cardiac, low salt, CHO 2 Discharge planning Pending improvement in pain control PT/OT/Speech PT ordered Lines/Access PIV Ocasio catheter No DVT/GI Prophylaxis Lovenox bridge to Coumadin, SCD. Code status Full Code Family PCP Lovely Vicente MD [phone] Attestation Please see my note for details [...] Paniagua MD - 07/27/2017 12:28 AM EST Gergory Fatima is an 72 y.o. male who [...] history reviewed ED Course: ED Course Steven Paniauga'alivia Documentation Value Comment Time INR: (!) 1.6 [...] encounter Miscellaneous Notes Plan of Care - Loma-Joyce Damian, PT - 07/27/2017 3:26 PM EST [...] Anticipated Discharge Disposition: home with assist Pager: [phone] JOYCE KING, PT Inpatient Physical Therapy 2017 [...] patient's evaluation including the following functional test(s) [facility]. Current ability measures, co-morbidities and clinical judgement [...] a lovenox bridge. Mr. Fatima returns to [facility] ED tonight because of ongoing pain in [...] SETUP performed by Manny Mcknight MD at [facility] MAIN OR ??? PRO CABG, ARTERIAL, SINGLE N/A 07/07/2017 @CABG, USING ARTERIAL GRAFT;SINGLE ARTERIAL GRAFT (WRVU 33.75) performed by Yuan Retana MD at [facility] MAIN OR ??? PRO CABG, ARTERY-VEIN, TWO N/A 07/07/2017 @CABG, TWO VENOUS GRAFTS & ARTERIAL GRAFT (WRVU 7.93) performed by Yuan Retana MD at [facility] MAIN OR ??? PRO COLONOSCOPY, REMV LESN, SNARE 01/16/2014 COLONOSCOPY, POLYPECTOMY, REMOVAL LESION BY SNARE performed by Nohemi Jaimes MD at [facility] ENDOSCOPY ??? PRO ENDOSCOPY W/VIDEO-ASST VEIN HARVEST, CABG Right 07/07/2017 ENDOSCOPIC HARVEST VEIN(S) FOR CABG (WRVU 0.31) performed by Yuan Retana MD at [facility] MAIN OR ??? PRO THYROIDECTOMY 03/28/2013 THYROIDECTOMY, TOTAL OR COMPLETE performed by Manny Mcknight MD at [facility] MAIN OR MEDICATIONS: No current facility-administered [...] up in clinic 1-2 weeks after discharge. [facility] Vascular Surgery Plan of Care [...] Visit Cardiology Vitaliy Nobles MD [facility] ER CARDIOLOGY [place], [place] [address] (Wo rk) documented as of this [...] section. TYPE AND SCREEN STAT 07/27/2017 12:53 ([facility]/CGP/SHANDA) AM EST BASIC METABOLIC PANEL STAT 07/27/2017 12:53 Re sults for this (NON-FASTING) AM EST procedure are in the results section. documented in this encounter Results POCT Glucose (07/27/2017 11:53 AM EST) P athologist Signature POC Glucose 175 65 - 199 K[place]INA RYAN mg/dL [facility] Comment: Supplemental ranges: <140 mg/dL before meals <180 mg/dL all other times of the day Specimen Anatomical Collection Method Collection Time Receive d Time (Source) Location / / Volume Laterality Blood specimen 07/27/2017 11:53 8 (specimen) AM EST 11:53 AM EST Tam Bauman MD POINT OF CARE TEST ORDERABLE S Performing Organization Address City/State/ZIP Code Phon e Number [place] [id number]OS[address] LAB[address]ORY [address] Arterial Duplex Leg, Unil (07/27/2017 7:40 AM EST) Component Value Ref Test Analysis Performed At [facility] Range Method Time Signature VB Text Department: Vascular Surgery Lab VASCUBASE Report Patient: [id number] (GREGORY FATIMA) CPT: 28101 ICD10: I97.610;I72.4;Z09 Referring Physician: TAM BAUMAN ?? [...] Bauman MD VASCULAR ORDERABLES Performing Organization Address City/State/ZIP Code Phon e Number VASCUBASE POCT Glucose (07/27/2017 6:51 AM EST) P athologist Signature POC Glucose 96 65 - 199 [facility] mg/dL [facility] Comment: Supplemental ranges: <140 mg/dL before meals <180 mg/dL all other times of the day Specimen Anatomical Collection Method Collection Time Receive d Time (Source) Location / / Volume Laterality Blood specimen 07/27/2017 6:51 AM 018 6:51 (specimen) EST AM EST Tam Bauman MD POINT OF CARE TEST ORDERABLE S Performing Organization Address City/[facility]/ZIP Code Phon e Number [address] ABORH Recheck Status (07/27/2017 12:53 AM EST) [facility] Year Up Method Time Signature ABORH Type Completed [facility] LABORATORY Specimen Anatomical Collection Method Collection Time Receive d Time (Source) Location / / Volume Laterality Blood specimen 07/27/2017 12:53 8 (specimen) AM EST 12:58 AM EST Resulting Agency Comment Spec In Lab Angela Swenson MD BLOOD BANK ORDERABLES Performing Organization Address City/[facility]/ZIP Code Phon e Number [address] Gold Tube HOLD (07/27/2017 12:53 AM EST) P athologist Signature Gold Hold Sample in [facility] LABORATORY Specimen Anatomical Collection Method Collection Time Receive d Time (Source) Location / / Volume Laterality Blood specimen Venous Draw / 07/27/2017 12:53 07/27/19 18 1:01 (specimen) Unknown AM EST AM EST Angela Swenson MD CHEMISTRY ORDERABLES Performing Organization Address City/[facility]/[place] [address] (ABNORMAL) Differential, Automated (07/27/2017 12:53 AM EST) [facility] Year Up Method Time Signature Neutrophils % 75.0 % [facility] Neutr Abs (ANC) 11.30 (H) 1.70 - [facility] 6.10 [facility] x10(3)/[facility] LABORATORY Lymphocytes % 9.9 % [facility] Lymphocytes Abs 1.5 0.9 - 3.2 [facility] x10(3)/[facility] LABORATORY Monocytes % 8.6 % [facility] Monocyte Abs 1.3 (H) 0.3 - 0.9 [facility] x10(3)/[facility] LABORATORY Eosinophils % 4.8 % [facility] Eosinophils Abs 0.7 (H) 0.0 - 0.4 [facility] x10(3)/[facility] LABORATORY Basophils % 0.8 % [facility] Basophils Abs 0.1 0.0 - 0.1 [place] [id number](3)/[facility] LABORATORY Immature Gran % 0.90 % [facility] [...] Gran Abs 0.13 (H) 0.00 - 0.04 x10(3)/[facility] LABORATORY Specimen Anatomical Collection Method Collection Time Receive d Time (Source) Location / / Volume Laterality Blood specimen 07/27/2017 12:53 8 1:00 (specimen) AM EST AM EST Resulting Agency Comment Spec In Lab Angela Swenson MD HEMATOLOGY ORDERABLES Performing Organization Address City/State/[place] [address] (ABNORMAL) Hemogram (07/27/2017 12:53 AM EST) Analysis Performed At Patho logist Time Signature WBC 15.0 (H) 4.0 - 9.5 [facility] x10(3)/[facility] LABORATORY RBC 3.59 (L) 4.58 - [place] 5.54 [facility] x10(6)/[facility] LABORATORY Hemoglobin 10.3 (L) 13.7 - KATALINA ZHAORYAN 16.5 gm/dL [facility] Hematocrit 32.6 (L) 40.5 - [place] 48.5 % [facility] MCV 90.8 82.9 - [facility] RYAN 93.1 [facility] LABORATORY MCH 28.7 27.5 - [place] 32.1 pg [facility] MCHC 31.6 (L) 32.0 - [place] ZHAORYAN 35.7 gm/dL [facility] Platelets 322 145 - 357 [facility] x10(3)/[facility] LABORATORY RDWSD 48.7 (H) 36.0 - [facility] RYAN 45.0 [facility] LABORATORY RDWCV 14.7 (H) 11.4 - [facility] 13.8 % [facility] LABORATORY MPV 8.9 7.6 - 12.9 [facility] LABORATORY nRBC % Auto 0.0 % [facility] nRBC Abs Auto 0.000 0.000 - [place] RYAN 0.000 [facility] x10(3)/[facility] LABORATORY Specimen Anatomical Collection Method Collection Time Receive d Time (Source) Location / / Volume Laterality Blood specimen 07/27/2017 12:53 8 1:00 (specimen) AM EST AM EST Resulting Agency Comment Spec In Lab Angela Swenson MD HEMATOLOGY ORDERABLES Performing Organization Address City/[facility]/[place]IP [place] [address] Antibody screen (07/27/2017 12:53 AM EST) [facility] gist Method Time Signature Ab Screen Negative [facility] LABORATORY Expires at 07/30/2017 KATALINA DAVIS [id number] on: [facility] Specimen Anatomical Collection Method Collection Time Receive d Time (Source) Location / / Volume Laterality Blood specimen 07/27/2017 12:53 8 (specimen) AM EST 12:58 AM EST Resulting Agency Comment Spec In Lab Angela Swenson MD BLOOD BANK ORDERABLES Performing Organization Address City/State/[place] [address] ABO/Rh Typing (07/27/2017 12:53 [...] Organization Address City/State/[place] [address] (ABNORMAL) Prothrombin Time (07/27/2017 12:53 AM EST) P athologist Signature PT 19.1 (H) 11.8 - 14.0 [facility] LABORATORY [...] Organization Address City/State/[place] [address] (ABNORMAL) Basic Metabolic Panel (non-fasting) (07/27/2017 12:53 AM EST) P athologist Signature Glucose Lvl 95 65 - 199 [facility] mg/dL [facility] Comment: Diabetes: >=200 mg/dL plus symp toms BUN 37 (H) 10 - 20 mg/dL [facility] Creatinine 1.49 0.80 - 1.50 mg/dL [facility] Sodium 137 135 - 145 mmol/L [facility] LAB[facility]ORY Potassium 5.1 (H) 3.5 - 5.0 mmol/L [facility] Estimated GFR 46 (L) >=60 [facility] Comment: The reported eGFR should be multiplied b y 1.2 for patients. The MDRD is not an appropriate measure o f renal function for patients with body mass extremes or in patients with acute kidney failure. 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 Right foot pain Pain in limb ASHD (arteriosclerotic heart disease) Coronary atherosclerosis of unspecified type of vessel, [place] or graft Cardiomyopathy, ischemic Other specified [...] HOURS PRN, Starting 07/27/17 at 0403, Until Tue 18 at 1726, Pain, for mild pain (1-3), May give an additional 2 mg once if pain not relieved in 30-60 minutes., Routine HYDROmorphone (DILAUDID) tablet 4 mg(Linked Group 3) 0505 (See Alternative - Provider: Tamiko Roblero RN) 4 mg, Oral, EVERY 4 HOURS PRN, Starting 07/27/17 at 0403, Until Tue 18 at 1726, Pain, for moderate pain (4-6), May give an additional 2 mg once if pain not relieved in 30-60 minutes., Routine lidocaine (XYLOCAINE) 10 mg/mL (1 %) injection 3 mg 3 mg (0.3 mL), Subcutaneous, ONCE PRN, 1 dose, Starting 07/27/17 at 0425, Until Tue 18 at 1726, for discomfort with PIV insertion, Routine sodium chloride 0.9 % flush 5-20 mL 5-20 mL, Intravenous, EVERY 1 MIN PRN, S tarting 07/27/17 at 0425, Until Tue 18 at 1726, flush, Flush pertains to all [...]
Routine documented in this encounter Care Teams Last Inserter Relationship Specialty Start Date End Date Lovely Vicente MD PCP - General 04/16/15 [facility] [address] [place] [address] documented as of this encounter
--- OUTSIDE RECORDS SUMMARY | 2022-02-20 01:45 | XMS_ITS | Encounter Summary ---
:1945 Author Organization [facility] [place] [address] Care Team Providers Name Role Phone Lovely Vicente MD Primary Care Provider Encounter Details Date Type Department Care Team Description 08/03/2017 Telephone Pain Management at [facility] [place], [place] [address] Social History Tobacco Use Types Packs/Day [...] Management Center Preauthorization Request Patient: Don Fatima [id number] Fax received from [facility] requesting we obtain prior authorization for Lidocaine Patches prescribed by Barbra Soares APRN. RX insurance plan: [facility] [employer] insurance telephone: [phone] Patient ?? Diagnosis: right foot pain secondary to PVD and ischemia ?? Previous medications attempted: Tylenol, Tramadol, Dilaudid Authorization/Reference number: [id number], PBP Code 801 _x_ denied, provider and patient informed _x_ appeal initiated by provider, patient informed [place] Rodrigez, RN documented in this encounter Plan of Treatment Upcoming Encounters Date Type Specialty Care Team Description 03/26/2022 Office Visit Cardiology Vitaliy Nobles MD [facility] CARDIOLOGY [place], [place] [address] (Wo rk) documented as of this encounter Visit Diagnoses Not on filedocumented in this encounter Care Teams Network Management Specialist Relationship Specialty Start Date End Date Lovely Vicente MD PCP - General 04/16/15 [facility] [address] [place] [address] documented as of this encounter
--- OUTSIDE RECORDS SUMMARY | 2022-02-20 01:45 | XMS_ITS | Encounter Summary ---
:1945 [place] [address] Care Team Providers Name Role Phone Lovely Vicente MD Primary Care Provider Encounter Details Date Type Department Care Team Description 08/03/2017 Hospital Encounter Radiology Library at [place], Tommy Mijares [facility] [place] [address] VASCULAR SURGERY [phone] [place], [place] [address] (Wo rk) Social [...] Visit Cardiology Vitaliy Nobles MD [facility] CARDIOLOGY [place], [place] [address] (Wo [...] Time / Laterality Volume Narrative RAD - 08/03/2017 6:03 PM EST This exam is for storage only and is aut o-finalizing. Arik Clement MD [facility] FILM LIBRARY ORDERABLES Performing Organization Address City/State/ZIP Code Phon e Number [place], [place] documented in this encounter Visit Diagnoses Diagnosis Pain Generalized pain documented in this encounter Care Teams Child Development Teacher Relationship Specialty Start Date End Date Lovely Vicente MD PCP - General 04/16/[address] [place] [address] documented as of this encounter
--- OUTSIDE RECORDS SUMMARY | 2022-02-20 01:45 | XMS_ITS | Encounter Summary ---
:1945 Author Organization [facility] [address] Care Team Providers Name Role Phone Lovely Vicente MD Primary Care Provider Reason for Visit Auth/Cert Specialty Diagnoses / Procedures Referred By Contact Refer red To Contact Diagnoses Critical lower limb ischemia CELLULITIS RT FOOT Procedures EMERGENCY Referral ID Status Reason Start Date Expiration Date Visits Requ ested Visits Authorized [id number] 1 1 Encounter Details Date Type Department Care Team Description 08/04/2017 Office Visit Cardiology at [facility] Danette Maxwell Incisional pain; [facility] A, FIVE PIECE 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 [...] Vitaliy Nobles MD [facility] ER CARDIOLOGY [place], [place] [address] (Wo rk) documented as of [...] Daniele gutiérrez 08/04/2017 4:13 PM Danette Maxwell FIVE PIECE EXPANSION MAKER HAND IMG DX ORDERABLES documented in this encounter Visit Diagnoses Diagnosis Incisional pain Disturbance of skin sensation Ischemic cardiomyopathy Other specified forms of chronic ischemi c heart disease ASCVD (arteriosclerotic cardiovascular d isease) Unspecified cardiovascular disease Systolic heart failure, unspecified hear t failure chronicity Incisional pain Disturbance of skin sensation documented in this encounter Care Teams Department Store Door Greeter Relationship Specialty Start Date End Date Lovely Vicente MD PCP - General 04/16/[address] [place] [address] [address] [place] [address] documented as of this encounter
--- OUTSIDE RECORDS SUMMARY | 2022-02-20 01:45 | XMS_ITS | Encounter Summary ---
:1945 Author Organization [facility] [place] [address] Care Team Providers Name Role Phone Lovely Vicente MD Primary Care Provider Reason for Visit Reason Comments Deep Vein Thrombosis Auth/Cert Specialty Diagnoses / Procedures Referred By Contact Refer red To Contact Diagnoses Critical lower limb ischemia CELLULITIS RT FOOT Procedures EMERGENCY Referral ID Status Reason Start Date Expiration Date Visits Requ ested Visits Authorized [id number] 1 1 Encounter Details Date Type Department Care Team Description 08/04/2017 Office Visit Vascular Surgery at [facility] itical lower limb [facility] ischemia [facility] [address] [place], [place] VASCULAR SURGERY [id number] [place] [address] [phone] Social History Tobacco Use Types Packs/Day Years [...] was discharged on Coumadin. ??He presented to [facility] on 07/20 with mottled toes on the [...] Vitaliy Nobles MD [facility] CARDIOLOGY [place], [place] [address] (Wo rk) documented as of this encounter Visit Diagnoses Diagnosis Critical lower limb ischemia Unspecified circulatory system disorder documented in this encounter Care Teams Burlap Roll Coverer Relationship Specialty Start Date End Date Lovely Vicente MD PCP - General 04/16/[address] [place] [address] documented as of this encounter
--- OUTSIDE RECORDS SUMMARY | 2022-02-20 01:45 | XMS_ITS | Encounter Summary ---
:1945 Author Organization [facility] Address [facility] [place] [address] Care Team Providers Name Role Phone Lovely Vicente MD Primary Care Provider Encounter Details Date Type Department Care Team Description 07/29/2017 Transcribe Orders Laboratory Lovely Vicente, Coronary artery rupture; [facility] Ischemic cardiomyopathy; [facility] [address] Atherosclerosis of [place] co ronary artery, angina presence unspecified, unspecified whether [place] or transplanted heart; [place], [place] [address] Essential hypertension, malignant; [id number] [place], [place] 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, unspecified prison insulin use status [phone] [id number] Social History Tobacco Use Types Packs/Day Years [...] MD [facility] CARDIOLOGY [place], [place] [address] (Wo rk) Scheduled Orders Name Type Priority Associated Diagnoses Order S chedule Lab Use Only, Fax Lab Routine Coronary arter y rupture Expected: 07/29/2017 Request Ischemic cardiom yopathy (Approximate), Atherosclerosis of [place] Ex jose: 07/29/2018 coronary artery, angina presence unspecified, unspecified whether [place] or transplanted heart Essential hypertension, malignant documented as of this encounter Results Uric acid (08/04/2017 12:55 PM EST) P athologist Signature Uric Acid 7.1 3.5 - 8.5 [place] [facility] mg/dL [facility] Specimen Anatomical Collection Method Collection Time Receive d Time (Source) Location / / Volume Laterality Blood specimen 08/04/2017 12:55 8 1:01 (specimen) PM EST PM EST Resulting Agency Comment Spec In Lab Lovely Vicente MD CHEMISTRY ORDERABLES Performing Organization Address City/State/[place] [address] (ABNORMAL) Hemogram (08/04/2017 12:55 PM EST) Analysis Performed At Patho logist Time Signature WBC 15.8 (H) 4.0 - 9.5 [place] [facility] x10(3)/[facility] LABORATORY RBC 3.48 (L) 4.58 - [place] 5.54 [facility] x10(6)/[facility] LABORATORY Hemoglobin 9.9 (L) 13.7 - [place] [facility] 16.5 gm/dL [facility] Hematocrit 31.4 (L) 40.5 - [place] 48.5 % [facility] MCV 90.2 82.9 - [place] 93.[address] [facility] LABORATORY MCH 28.4 27.5 - [place] 32.1 pg [facility] MCHC 31.5 (L) 32.0 - [place] 35.7 gm/dL [facility] Platelets 310 145 - 357 [place] x10(3)/[facility] LABORATORY RDWSD 51.8 (H) 36.0 - [place] 45.[address] [facility] LABORATORY RDWCV 15.8 (H) 11.4 - [place] 13.8 % [facility] MPV 8.9 7.6 - 12.9 [facility] LABORATORY nRBC % Auto 0.0 % [facility] LABORATORY nRBC Abs Auto 0.000 0.000 - [facility] 0.000 [facility] x10(3)/[facility] LABORATORY Specimen Anatomical Collection Method Collection Time Receive d Time (Source) Location / / Volume Laterality Blood specimen 08/04/2017 12:55 8 1:01 (specimen) PM EST PM EST Resulting Agency Comment Spec In Lab Lovely Vicente MD HEMATOLOGY ORDERABLES Performing Organization Address City/State/[place] [address] (ABNORMAL) Comprehensive metabolic panel (non-fasting) (08/04/2017 12:55 PM EST) P athologist Signature Glucose Lvl 208 (H) 65 - 199 [facility] mg/dL [facility] Comment: Diabetes: >=200 mg/dL plus symp toms BUN 32 (H) 10 - 20 mg/dL [facility] Creatinine 1.58 (H) 0.80 - 1.50 mg/dL [facility] Sodium 136 135 - 145 mmol/L [facility] Potassium 5.5 (H) 3.5 - 5.0 mmol/L [facility] [...] Anion Gap 14 5 - 15 mmol/L [facility] Calcium 8.6 8.5 - 10.5 mg/dL [facility] Total Protein 6.9 6.1 - 8.0 gm/dL [facility] Albumin 3.4 3.2 - 5.2 gm/dL [facility] AST 20 0 - 39 unit/L [facility] ALT 21 0 - 55 unit/L [facility] Alk Phos 93 40 - 120 unit/L [facility] Total Bilirubin 0.4 0.2 - 1.3 mg/dL [facility] Estimated GFR 43 (L) >=60 [facility] Comment: The reported eGFR should be multiplied b y 1.2 for patients. The MDRD is not an appropriate measure o f renal function for patients with body mass extremes or in patients with acute kidney failure. http://Xlumena/DHnkdep http://Xlumena/DHMCnkf Specimen Anatomical Collection Method Collection Time Receive d Time (Source) Location / / Volume Laterality Blood specimen 08/04/2017 12:55 8 1:01 (specimen) PM EST PM EST Resulting Agency Comment Spec In Lab Lovely Vicente MD CHEMISTRY ORDERABLES Performing Organization Address City/State/[place] [address] (ABNORMAL) Hemoglobin A1c (08/04/2017 12:55 PM EST) Analysis [facility] Time Signature Hemoglobin A1C 6.2 (H) 4.3 - 5.6 [facility] Comment: Reference Range: 4.3 - [...] [id number] Est Avg Gluc See note mg/dL PORTER [...] with hemoglobinopathies. Additional resources are available on [facility] ADA website. Macario HAMMOND, Ruthann J, Deysi R, et al. ??Tr anslating the A1C assay into estimated average glucose values. ??Diabetes Care 2008:31(8):0590-8267. Specimen Anatomical Collection Method Collection Time Receive d Time (Source) Location / / Volume Laterality Blood specimen 08/04/2017 12:55 8 1:01 (specimen) PM EST PM EST Resulting Agency Comment Spec In Lab Lovely Vicente MD CHEMISTRY ORDERABLES Performing Organization Address City/State/[place] [address] (ABNORMAL) Prothrombin Time (08/04/2017 12:55 PM EST) P athologist Signature PT 35.4 (H) 11.8 - 14.0 [facility] LABORATORY INR 3.5 (H) 0.9 - 1.1 [facility] Comment: An [...] Address City/State/[place] [address] documented in this encounter Visit Diagnoses Diagnosis Coronary artery rupture Acute myocardial infarction, unspecified site, episode of care unspecified Ischemic cardiomyopathy Other specified forms of chronic ischemi c heart disease Atherosclerosis of [place] coronary arter y, angina presence unspecified, unspecified whether [place] or transplanted heart Essential hypertension, malignant Diabetes mellitus due to underlying cond ition with diabetic nephropathy, unspecified prison insulin use status documented in this encounter Care Teams Senior Lead Project Manager Relationship Specialty Start Date End Date Lovely Vicente MD PCP - General 04/16/[address] [place] [address] documented as of this encounter
--- OUTSIDE RECORDS SUMMARY | 2022-02-20 01:45 | XMS_ITS | Encounter Summary ---
:1945 Author Organization [facility] [place] [address] Care Team Providers Name Role Phone Lovely Vicente MD Primary Care Provider Encounter Details Date Type Department Care Team Description 07/29/2017 Transcribe Orders Laboratory Lovely Vicente MD [place] [id number] [address] [id number] [place], [place] [id number] (Wo rk) Social History Tobacco Use Types [...] MD [facility] CARDIOLOGY [place], [place] [address] (Wo rk) documented as of this encounter Visit Diagnoses Not on filedocumented in this encounter Care Teams Manager Business Development Hospice Relationship Specialty Start Date End Date Lovely Vicente MD PCP - General 04/16/15 [facility] [employer] [address] [address] documented as of this encounter
--- OUTSIDE RECORDS SUMMARY | 2022-02-20 01:45 | XMS_ITS | Encounter Summary ---
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 Patient [...] performed by Manny Mcknight MD at [facility] MAIN OR ??? PRO CABG, ARTERIAL, SINGLE N/A 07/07/2017 @CABG, USING ARTERIAL GRAFT;SINGLE ARTERIAL GRAFT (WRVU 33.75) performed by Yuan Retana MD at [facility] MAIN OR ??? PRO CABG, ARTERY-VEIN, TWO N/A 07/07/2017 @CABG, TWO VENOUS GRAFTS & ARTERIAL GRAFT (WRVU 7.93) performed by Yuan Retana MD at [facility] [place] MAIN OR ??? PRO COLONOSCOPY, REMFlash MOCK, SNARE 01/16/2014 COLONOSCOPY, POLYPECTOMY, REMOVAL LESION BY SNARE performed by Nohemi Jaimes MD at [facility] [place] ENDOSCOPY ??? PRO ENDOSCOPY W/VIDEO-ASST VEIN HARVEST, CABG Right 07/07/2017 ENDOSCOPIC HARVEST VEIN(S) FOR CABG (WRVU 0.31) performed by Yuan Retana MD at [facility] [place] MAIN OR ??? PRO THYROIDECTOMY 03/28/2013 THYROIDECTOMY, TOTAL OR COMPLETE performed by Manny Mcknight MD at 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 Hank Zhang Vascular Surgery, PGY2 Pager #[phone] Associated attestation - Arik Clement MD - [...] Cardiology Vitaliy Nobles MD [facility] ER CARDIOLOGY [place], [place] [address] (Wo rk) documented as of [...] Value Ref Test Analysis Performed At [facility] Range Method Time Signature VB Text Department: Vascular Surgery Lab VASCUBASE Report Patient: [id number] (GREGORY FATIMA) CPT: 35378 ICD10: I82.541 Referring Physician: TAMIKO JIMÉNEZ ?? [...] VASCUBASE POCT Glucose (07/29/2017 2:28 PM EST) P athologist Signature POC Glucose 128 65 - 199 [facility] mg/dL [facility] Comment: Supplemental ranges: <140 mg/dL before meals <180 mg/dL all other times of the day Specimen Anatomical Collection Method Collection Time Receive d Time (Source) Location / / Volume Laterality Blood specimen 07/29/2017 2:28 PM 018 2:28 (specimen) EST PM EST Tamiko Jiménez MD POINT OF CARE TEST ORDERABLE S Performing Organization Address City/[facility]/ZIP Code Phon e Number [place] [id number] (ABNORMAL) D-Dimer, Quantitative (07/29/2017 2:15 PM EST) [facility] Epizyme Method Time Signature D-Dimer, Quant 1,699 (H) 0 - 500 [facility] FEU ng/ml [facility] Comment: The D-Dimer assay is [...] Address City/State/[place] [address] (ABNORMAL) Differential, Automated (07/29/2017 2:15 PM EST) [facility] Method Time Signature Neutrophils % 82.5 % [facility] Neutr Abs (ANC) 10.21 (H) 1.70 - [facility] 6.10 [facility] x10(3)/[facility] LABORATORY Lymphocytes % 7.1 % [facility] Lymphocytes Abs 0.9 0.9 - 3.2 [facility] x10(3)/[facility] LABORATORY Monocytes % 6.5 % [facility] Monocyte Abs 0.8 0.3 - 0.9 [facility] x10(3)/[facility] LABORATORY Eosinophils % 2.7 % [facility] Eosinophils Abs 0.3 0.0 - 0.4 [facility] x10(3)/[facility] LABORATORY Basophils % 0.6 % [facility] Basophils Abs 0.1 0.0 - 0.1 [facility] x10(3)/[facility] LABORATORY Immature Gran % 0.60 % [facility] Comment: Immature granulocytes(IG's)percentage an d absolute count will include metamyelocytes, myelocytes, and promyelo cytes. Blood smears from CBCs yielding IG's will be scanned manually for lora danhaley. If this scan disagrees with the automated IG or if promyelocytes are not ed, a manual differential will be performed. Melisa Gran Abs 0.08 (H) 0.00 - 0.04 x10(3)/[facility] LABORATORY Specimen Anatomical Collection Method Collection Time Receive d Time (Source) Location / / Volume Laterality Blood specimen 07/29/2017 2:15 PM 018 2:36 (specimen) EST PM EST Resulting Agency Comment Spec In Lab Tamiko Jiménez MD HEMATOLOGY ORDERABLES Performing Organization Address City/State/ZIP Code Phon e Number [place] [phone] (ABNORMAL) Hemogram (07/29/2017 2:15 PM EST) Analysis Performed At Patho logist Time Signature WBC 12.4 (H) 4.0 - 9.5 [facility] x10(3)/[facility] LABORATORY RBC 4.17 (L) 4.58 - [facility] 5.54 [facility] x10(6)/[facility] LABORATORY Hemoglobin 12.1 (L) 13.7 - [facility] 16.5 gm/dL [facility] Hematocrit 38.1 (L) 40.5 - [facility] 48.5 % [facility] MCV 91.4 82.9 - [facility] 93.1 [facility] LABORATORY MCH 29.0 27.5 - [facility] RYAN 32.1 pg [facility] MCHC 31.8 (L) 32.0 - [facility] 35.7 gm/dL [facility] Platelets 204 145 - 357 [facility] x10(3)/[facility] LABORATORY RDWSD 50.5 (H) 36.0 - [facility] 45.0 [facility] LABORATORY RDWCV 15.3 (H) 11.4 - [facility] RYAN 13.8 % [facility] MPV 9.4 7.6 - 12.9 [facility] LABORATORY nRBC % Auto 0.0 % [facility] nRBC Abs Auto 0.000 0.000 - [facility] 0.000 [facility] x10(3)/[facility] LABORATORY Specimen Anatomical Collection Method Collection Time Receive d Time (Source) Location / / Volume Laterality Blood specimen 07/29/2017 2:15 PM 018 2:36 (specimen) EST PM EST Resulting Agency Comment Spec In Lab Tamiko Jiménez MD HEMATOLOGY ORDERABLES Performing Organization Address City/[facility]/ZIP Code Phon e Number [place] [id number] (ABNORMAL) Prothrombin Time (07/29/2017 2:15 PM EST) P athologist Signature PT 24.4 (H) 11.8 - 14.0 [facility] LABORATORY INR 2.2 (H) 0.9 - 1.1 [facility] [...] Jiménez MD HEMATOLOGY ORDERABLES Performing Organization Address City/[facility]/ZIP [place] [address] Arterial Duplex Leg, Unil (07/29/2017 11:50 AM EST) Component Value Ref Test Analysis Performed At Patholo gist Range Method Time Signature VB Text Department: Vascular Surgery Lab VASCUBASE Report Patient: [id number] (GREGORY FATIMA) CPT: 96113 ICD10: Z09;I97.610 Referring Physician: TAMIKO JIMÉNEZ ?? [...] Value Ref Test Analysis Performed At [facility] Range Method Time Signature VB Text Department: Vascular Surgery Lab VASCUBASE Report Patient: [id number] (GREGORY FATIMA) CPT: 15512 ICD10: I82.441 Referring Physician: TAMIKO JIMÉNEZ ?? [...] he calf. Notification: Marquis Pathak MD (pager #[phone]) was notif ied of the preliminary findings. [...] STAT documented in this encounter Care Teams Unified Communications Architect Relationship Specialty Start Date End Date Lovely Vicente MD PCP - General 04/16/[address] [facility] [place] [address] documented as of this encounter
--- OUTSIDE RECORDS SUMMARY | 2022-02-20 01:45 | XMS_ITS | Encounter Summary ---
:1945 Author Organization [facility] Address [facility] [place] [address] Care Team Providers Name Role Phone Lovely Vicente MD Primary Care Provider Reason for Visit Auth/Cert Specialty Diagnoses / Procedures Referred By Contact Refer red To Contact Diagnoses Critical lower limb ischemia CELLULITIS RT FOOT Procedures EMERGENCY Referral ID Status Reason Start Date Expiration Date Visits Requ ested Visits Authorized [id number] 1 1 Encounter Details Date Type Department Care Team Description 08/04/2017 Laboratory Lab 3L [place] Cardiomyopathy, unspecified type; Appointment 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 PROTHROMBIN TIME Routine 08/04/2017 12:55 Coronary artery Resu lts for this PM EST rupture procedure are in Ischemic the results cardiomyopathy section. Atherosclerosis of [place] coronary artery, angina presence unspecified, unspecified whether [place] or transplanted heart URIC ACID Routine 08/04/2017 [...] with the results diabetic section. nephropathy, unspecified jail insulin use status Essential hypertension, malignant COMPREHENSIVE Routine 08/04/2017 12:55 Essential Results fo r this METABOLIC PANEL PM EST hypertension, procedure a re in (NON-FASTING) malignant the results section. documented in this encounter Results Uric acid (08/04/2017 12:55 PM EST) P athologist Signature Uric Acid 7.1 3.5 - 8.5 [facility] mg/dL [facility] Specimen Anatomical Collection Method Collection Time Receive d Time (Source) Location / / Volume Laterality Blood specimen 08/04/2017 12:55 8 1:01 (specimen) PM EST PM EST Resulting Agency Comment Spec In Lab Lovely Vicente MD CHEMISTRY ORDERABLES Performing Organization Address City/State/[place] [address] (ABNORMAL) Hemogram (08/04/2017 12:55 PM EST) Analysis Performed At Patho logist Time Signature WBC 15.8 (H) 4.0 - 9.5 [facility] x10(3)/[facility] LABORATORY RBC 3.48 (L) 4.58 - [facility] 5.54 [facility] x10(6)/[facility] [employer] [facility] LABORATORY Hemoglobin 9.9 (L) 13.7 - [facility] 16.5 gm/dL [facility] Hematocrit 31.4 (L) 40.5 - [facility] 48.5 % [facility] MCV 90.2 82.9 - [facility] 93.1 [facility] LABORATORY MCH 28.4 27.5 - [facility] 32.1 pg [facility] MCHC 31.5 (L) 32.0 - [facility] 35.7 gm/dL [facility] Platelets 310 145 - 357 [facility] x10(3)/[facility] LABORATORY RDWSD 51.8 (H) 36.0 - [facility] 45.0 [facility] LABORATORY RDWCV 15.8 (H) 11.4 - [facility] 13.8 % [facility] MPV 8.9 7.6 - 12.9 [facility] LABORATORY nRBC % Auto 0.0 % [facility] nRBC Abs Auto 0.000 0.000 - [facility] 0.000 [facility] x10(3)/[facility] [employer] [facility] LABORATORY Specimen Anatomical Collection Method Collection Time Receive d Time (Source) Location / / Volume Laterality Blood specimen 08/04/2017 12:55 8 1:01 (specimen) PM EST PM EST Resulting Agency Comment Spec In Lab Lovely Vicente MD HEMATOLOGY ORDERABLES Performing Organization Address City/State/[place] [address] (ABNORMAL) Comprehensive metabolic panel (non-fasting) (08/04/2017 12:55 PM EST) P athologist Signature Glucose Lvl 208 (H) 65 - 199 [facility] mg/dL [facility] Comment: Diabetes: >=200 mg/dL plus symp toms BUN 32 (H) 10 - 20 mg/dL [facility] LABORATORY Creatinine 1.58 (H) 0.80 - 1.50 mg/dL [facility] Sodium 136 135 - 145 mmol/L [facility] Potassium 5.5 (H) 3.5 - 5.0 mmol/L [facility] Comment: Please note: ??Patients with WBC >100,00 0 may have falsely elevated Potassium levels. ??For accurate Potassium quantif ication in these patients send serum separator tube (gold top) for subsequent determinations. ??Contact the Clinical Chemistry Laboratory if there are any qu estions. Chloride 97 (L) 98 - 107 mmol/L [facility] CO2 25 22 - 31 mmol/L [facility] Anion Gap 14 5 - 15 mmol/L [facility] LABORATORY Calcium 8.6 8.5 - 10.5 mg/dL [facility] Total Protein 6.9 6.1 - 8.0 gm/dL [facility] Albumin 3.4 3.2 - 5.2 gm/dL [facility] AST 20 0 - 39 unit/L [facility] LABOR[facility] ALT 21 0 - 55 unit/L [facility] Alk Phos 93 40 - 120 unit/L [facility] Total Bilirubin 0.4 0.2 - 1.3 mg/dL [facility] Estimated GFR 43 (L) >=60 [facility] Comment: The reported eGFR should be multiplied b y 1.2 for patients. The MDRD is not an appropriate measure o f renal function for patients with body mass extremes or in patients with acute kidney failure. http://IntelliBatt.Compliance Science/DHnkdep http://Crowdbaron/DHMCnkf Specimen Anatomical Collection Method Collection Time Receive d Time (Source) Location / / Volume Laterality Blood specimen 08/04/2017 12:55 8 1:01 (specimen) PM EST PM EST Resulting Agency Comment Spec In Lab Lovely Vicente MD CHEMISTRY ORDERABLES Performing Organization Address City/State/[place] [address] (ABNORMAL) Hemoglobin A1c (08/04/2017 12:55 PM EST) Analysis Performed At Patho logist Time Signature Hemoglobin A1C 6.2 (H) 4.3 - 5.6 KATALINA DAVIS [facility] Comment: Reference Range: 4.3 - [...] S67-74 Est Avg Gluc See note mg/dL [facility] Comment: Estimated Average Glucose not [...] with hemoglobinopathies. Additional resources are available on [facility] ADA website. Macario HAMMOND, Ruthann J, Deysi R, et al. ??Tr anslating the A1C assay into estimated average glucose values. ??Diabetes Care 2008:31(8):7629-2917. Specimen Anatomical Collection Method Collection Time Receive d Time (Source) Location / / Volume Laterality Blood specimen 08/04/2017 12:55 8 1:01 (specimen) PM EST PM EST Resulting Agency Comment Spec In Lab Lovely Vicente MD CHEMISTRY ORDERABLES Performing Organization Address City/State/[place] [address] (ABNORMAL) Prothrombin Time (08/04/2017 12:55 PM EST) P athologist Signature PT 35.4 (H) 11.8 - 14.0 [facility] LABORATORY INR 3.5 (H) 0.9 - 1.1 [facility] [...] Vicente MD HEMATOLOGY ORDERABLES Performing Organization Address City/[facility]/[place] [address] (ABNORMAL) pro-Brain Natriuretic Peptide (08/04/2017 12:55 PM EST) P athologist Signature ProBNP 3,133 (H) <=125 [facility] pg/mL [facility] Specimen Anatomical Collection Method Collection Time Receive d Time (Source) Location / / Volume Laterality Blood specimen 08/04/2017 12:55 8 1:01 (specimen) PM EST PM EST Resulting Agency Comment Spec In Lab Danette Maxwell APRN CHEMISTRY ORDERABLES Performing Organization Address City/State/[place] [address] documented in this encounter Visit Diagnoses Diagnosis Cardiomyopathy, unspecified type Systolic congestive heart failure, unspe cified congestive heart failure chronicity Coronary artery rupture Acute myocardial infarction, unspecified site, episode of care unspecified Ischemic cardiomyopathy Other specified forms of chronic ischemi c heart disease Atherosclerosis of [place] coronary arter y, angina presence unspecified, unspecified whether [place] or transplanted heart Essential hypertension, malignant Diabetes mellitus due to underlying cond ition with diabetic nephropathy, unspecified terminal manager insulin use status documented in this encounter Care Teams Barrel Raiser Helper Relationship Specialty Start Date End Date Lovely Vciente MD PCP - General 04/16/[address] [place] [address] documented as of this encounter
--- OUTSIDE RECORDS SUMMARY | 2022-02-20 01:45 | XMS_ITS | Encounter Summary ---
:1945 Author Organization [facility] [place] [address] Care Team Providers Name Role Phone Lovely Vicente MD Primary Care Provider Encounter Details Date Type Department Care Team Description 07/24/2017 Telephone Vascular Surgery Melba Bob [facility] [place] [address] [facility] [phone] VASCULAR SURGERY [place], [place] [address] (Wo rk) Social History Tobacco [...] was discharged on Coumadin. ??He presented to [facility] on 07/20 with mottled toes on the [...] MEDICAL [facility] ER CARDIOLOGY [place], [place] [address] (Wo rk) documented as of this encounter Visit Diagnoses Not on filedocumented in this encounter Care Teams Funeral Home Makeup Artist Relationship Specialty Start Date End Date Lovely Vicente MD PCP - General 04/16/15 [facility] [address] [place] [address] documented as of this encounter
--- OUTSIDE RECORDS SUMMARY | 2022-02-20 01:45 | XMS_ITS | Encounter Summary ---
:1945 Author Organization [facility] [place] [address] Care Team Providers Name Role Phone Lovely Vicente MD Primary Care Provider Reason for Visit Auth/Cert Specialty Diagnoses / Procedures Referred By Contact Refer red To Contact Diagnoses Critical lower limb ischemia CELLULITIS RT FOOT Procedures EMERGENCY Referral ID Status Reason Start Date Expiration Date Visits Requ ested Visits Authorized [id number] 1 1 Encounter Details Date Type Department Care Team Description 08/04/2017 Laboratory Appointment Lab 3L [place] [address] Social History Tobacco Use Types Packs/Day [...] Nobles MD [facility] ER CARDIOLOGY [place], [place] [address] (Wo rk) documented as of this encounter Visit Diagnoses Not on filedocumented in this encounter Care Teams Book Editor Relationship Specialty Start Date End Date Lovely Vicente MD PCP - General 04/16/[address] [place] [address] documented as of this encounter
--- OUTSIDE RECORDS SUMMARY | 2022-02-20 01:45 | XMS_ITS | Encounter Summary ---
:1945 Author Organization [facility] [place] [address] Care Team Providers Name Role Phone Lovely Vicente MD Primary Care Provider Reason for Visit Reason Onset Date Comments Other 07/22/2017 lovenox bridge Encounter Details Date Type Department Care Team Description 07/22/2017 Telephone Cardiology at [facility] Court Cadena RN Other (lovenox bridge) [place] [address] Social History Tobacco Use Types Packs/Day Years Used Date Former Smoker Cigarettes 3 5 Quit: 07/26/18 69 Smokeless Tobacco: Never Used Alcohol Use Standard Drinks/Week Comments No 0 (1 standard drink = 0.6 oz pure alcoho l) Sex Assigned at Date Recorded Not on file documented as of this encounter Miscellaneous Notes Telephone Encounter - oCurt Cadena RN - 07/22/2017 4:49 PM EST VAMSI Del Castillo, at [facility], called earlier today with a question re: lovenox bridge for this patient who was recently discharged from [facility] r/t a blood clot. Discharge note faxed to [facility] (fax# [phone], Ph#: [phone]) which contains instructions r/t lovenox bridge as follows: Anticoagulation: on lovenox bridge to therapeutic coumadin for AFib. Goal INR 2-3. At discharge INR=1.5. The lovenox injections can stop when INR >2, coumadin will continue indefinitely. documented in this encounter Plan of Treatment Upcoming Encounters Date Type Specialty Care Team Description 03/26/2022 Office Visit Cardiology Vitaliy Nobles MD [facility] ER CARDIOLOGY [place], [place] [address] (Wo rk) documented as of this encounter Visit Diagnoses Not on filedocumented in this encounter Care Teams Defense Analyst Relationship Specialty Start Date End Date Lovely Vicente MD PCP - General 04/16/[address] [place] [address] documented as of this encounter
--- OUTSIDE RECORDS SUMMARY | 2022-02-20 01:45 | XMS_ITS | Encounter Summary ---
:1945 [place] [address] Care Team Providers Name Role Phone Lovely Vicente MD Primary Care Provider Encounter Details Date Type Department Care Team Description 08/05/2017 Notes Only Vascular Surgery at [facility] Eden Moss, ST[place] [address] VASCULAR SURGERY [phone] [place], [place] [address] (Wo rk) Social History [...] Vitaliy Nobles MD [facility] ER CARDIOLOGY [place], [place] [address] (Wo rk) documented as of this encounter Visit Diagnoses Not on filedocumented in this encounter Care Teams Investments Manager Relationship Specialty Start Date End Date Lovely Vicente MD PCP - General 04/16/[address] [place] [address] documented as of this encounter
--- OUTSIDE RECORDS SUMMARY | 2022-02-20 01:45 | XMS_ITS | Encounter Summary ---
:1945 Author Organization [facility] [place] [address] Care Team Providers Name Role Phone Lovely Vicente MD Primary Care Provider Encounter Details Date Type Department Care Team Description 08/04/2017 Orders Only Cardiac Surgery Makayla Wilson APRN [facility] [place] [address] CARDIAC SURGERY [phone] [place], [place] [address] (Wo rk) Social History Tobacco [...] Nobles MD [facility] ER DR CARLYLE [place], [place] [address] (Wo rk) documented as of this encounter Visit Diagnoses Not on filedocumented in this encounter Care Teams Rn Interventional Relationship Specialty Start Date End Date Lovely Vicente MD PCP - General 04/16/[address] [place] [address] documented as of this encounter
--- OUTSIDE RECORDS SUMMARY | 2022-02-20 01:45 | XMS_ITS | Encounter Summary ---
:1945 Author Organization [facility] [place] [address] Care Team Providers Name Role Phone Lovely Vicente MD Primary Care Provider Encounter Details Date Type Department Care Team Description 08/04/2017 Orders Only Cardiac Surgery Makayla Wilson APRN [facility] [place] [address] CARDIAC SURGERY [phone] [place], [place] [address] (Wo rk) Social History Tobacco [...] Nobles MD [facility] ER DR [place]LE [place], [place] [address] (Wo rk) documented as of this encounter Visit Diagnoses Not on filedocumented in this encounter Care Teams Rn Spine Relationship Specialty Start Date End Date Lovely Vicente MD PCP - General 04/16/[address] [place] [address] documented as of this encounter
--- OUTSIDE RECORDS SUMMARY | 2022-02-20 01:45 | XMS_ITS | Encounter Summary ---
:1945 Author Organization [facility] [place] [address] Care Team Providers Name Role Phone Lovely Vicente MD Primary Care Provider Reason for Visit Auth/Cert Specialty Diagnoses / Procedures Referred By Contact Refer red To Contact Diagnoses Critical lower limb ischemia CELLULITIS RT FOOT Procedures EMERGENCY Referral ID Status Reason Start Date Expiration Date Visits Requ ested Visits Authorized [id number] 1 1 Encounter Details Date Type Department Care Team Description 08/04/2017 Hospital Encounter XRay at [facility] Danette Maxwell Incisional pain [address] [place] [address] Dr Gomes, KEG FILLER [facility] [address] CARDIOLOGY [place], [place] [address] Social History Tobacco Use Types [...] Cardiology Vitaliy Nobles MD [facility] ER CARDIOLOGY [place], [place] [address] (Wo rk) documented as of [...] sensation documented in this encounter Care Teams Video Editing Intern Relationship Specialty Start Date End Date Lovely Vicente MD PCP - General 04/16/[address] [place] [address] documented as of this encounter
--- OUTSIDE RECORDS SUMMARY | 2022-02-20 01:45 | XMS_ITS | Encounter Summary ---
:1945 Author Organization [facility] [address] Care Team Providers Name Role Phone Lovely Vicente MD Primary Care Provider Reason for Visit Reason Comments Follow-up Encounter Details Date Type Department Care Team Description 07/29/2017 Office Visit Cardiac Surgery at [facility] Yuan Retana MD S/P CABG x [address] [facility] [place] [address] CARDIOTHORACIC SURGERY [phone] [place], [place] [address] (Wo rk) Social History Tobacco [...] evaluation by vascular surgery. Yuan Retana MD [phone] documented in this encounter Plan of Treatment Upcoming Encounters Date Type Specialty Care Team Description 03/26/2022 Office Visit Cardiology Vitaliy Nobles MD [facility] CARDIOLOGY [place], [place] [address] (Wo rk) documented as of this encounter Visit Diagnoses Diagnosis S/P CABG x 3 Postsurgical aortocoronary bypass status documented in this encounter Care Teams Manager Compensation Relationship Specialty Start Date End Date Lovely Vicente MD PCP - General 04/16/[address] [place] [address] documented as of this encounter
--- OUTSIDE RECORDS SUMMARY | 2022-02-20 01:45 | XMS_ITS | Encounter Summary ---
:1945 [place] [address] Care Team Providers Name Role Phone Lovely Vicente MD Primary Care Provider Encounter Details Date Type Department Care Team Description 08/06/2017 Orders Only Vascular Surgery at [facility] Eden Moss APRN Ischemia of foot [facility] [place] [address] VASCULAR SURGERY [phone] [place], [place] [address] (Wo rk) Social History Tobacco [...] MD [facility] ER DR [place]LE [place], [place] [address] (Wo rk) documented as of [...] 444 ms MUSE SYSTEM (Bezet) Calculated P [place] 44 degrees MUSE SYSTEM Calculated R [place] -31 degrees MUSE SYSTEM Calculated T [place] 106 degrees MUSE SYSTEM INTERPRETATION Normal sinus [...] Signature Prealbumin 19 (L) 20 - 40 [facility] mg/dL [facility] Comment: Prealbumin levels are generally lower in the pediatric population; adult concentrations are usually attained near puberty. Specimen Anatomical Collection Method Collection Time Receive d Time (Source) Location / / Volume Laterality Blood specimen 08/06/2017 12:32 8 1:15 (specimen) PM EST PM EST Resulting Agency Comment Spec In Lab Arik Clement MD CHEMISTRY ORDERABLES Performing Organization Address City/State/[place] [address] (ABNORMAL) Basic Metabolic Panel (non-fasting) (08/06/2017 12:32 PM EST) P athologist Signature Glucose Lvl 92 65 - 199 [facility]/dL [facility] Comment: Diabetes: >=200 mg/dL plus symp toms BUN 29 (H) 10 - 20 mg/dL [facility] Creatinine 1.33 0.80 - 1.50 mg/dL [facility]OR[facility] Sodium 138 135 [...] HOSPITAL LABORATORY Estimated GFR 53 (L) >=60 [facility] Comment: The reported eGFR should be multiplied b y 1.2 for patients. The MDRD is not an appropriate measure o f renal function for patients with body mass extremes or in patients with acute kidney failure. http://MyDocTime/DHnkdep http://MyDocTime/DHMCnkf Specimen Anatomical Collection Method Collection Time Receive d Time (Source) Location / / Volume Laterality Blood specimen 08/06/2017 12:32 8 1:15 (specimen) PM EST PM EST Resulting Agency Comment Spec In Lab Arik Clement MD CHEMISTRY ORDERABLES Performing Organization Address City/State/[place] [address] (ABNORMAL) Hemogram (08/06/2017 12:32 PM EST) Analysis Performed At Patho logist Time Signature WBC 11.8 (H) 4.0 - 9.5 [facility] x10(3)/[facility] LABORATORY RBC 3.49 (L) 4.58 - [facility] 5.54 [facility] x10(6)/[facility] LABORATORY Hemoglobin 9.9 (L) 13.7 - [facility] 16.5 gm/dL [facility] Hematocrit 32.0 (L) 40.5 - [facility] 48.5 % [facility] MCV 91.7 82.9 - [facility] 93.1 [facility] LABORATORY MCH 28.4 27.5 - [facility] 32.1 pg [facility] MCHC 30.9 (L) 32.0 - [facility] 35.7 gm/dL [facility] Platelets 326 145 - 357 [facility] x10(3)/[facility] LABORATORY RDWSD 53.4 (H) 36.0 - [facility] 45.0 [facility] LABORATORY RDWCV 16.0 (H) 11.4 - [facility] 13.8 % [facility] MPV 9.1 7.6 - 12.9 [facility] LABORATORY nRBC % Auto 0.0 % [facility] nRBC Abs Auto 0.000 0.000 - [facility] 0.000 [facility] x10(3)/[facility] LABORATORY Specimen Anatomical Collection Method Collection Time Receive d Time (Source) Location / / Volume Laterality Blood specimen 08/06/2017 12:32 8 1:15 (specimen) PM EST PM EST Resulting Agency Comment Spec In Lab Arik Clement MD HEMATOLOGY ORDERABLES Performing Organization Address City/State/[place] [address] documented in this encounter Visit Diagnoses Diagnosis Ischemia of foot Unspecified circulatory system disorder documented in this encounter Care Teams Buttoner Relationship Specialty Start Date End Date Lovely Vicente MD PCP - General 04/16/[address] [place] [address] documented as of this encounter
--- OUTSIDE RECORDS SUMMARY | 2022-02-20 01:45 | XMS_ITS | Encounter Summary ---
:1945 [place] [address] Care Team Providers Name Role Phone Lovely Vicente MD Primary Care Provider Encounter Details Date Type Department Care Team Description 08/04/2017 Notes Only Cardiac Surgery Makayla Wilson PHILOSOPHY PROFESSOR [facility] [place] [address] CARDIAC SURGERY [phone] [place], [place] [address] (Wo rk) Social History Tobacco [...] MD [facility] CARDIOLOGY [place], [place] [address] (Wo rk) documented as of this encounter Visit Diagnoses Not on filedocumented in this encounter Care Teams Trim And Burr Operator Relationship Specialty Start Date End Date Lovely Vicente MD PCP - General 04/16/[address] [place] [address] documented as of this encounter
--- OUTSIDE RECORDS SUMMARY | 2022-02-20 01:46 | XMS_ITS | Encounter Summary ---
:1945 [place] [address] Care Team Providers Name Role Phone Lovely Vicente MD Primary Care Provider Reason for Visit Reason Onset Date Comments Questions 07/16/2017 fluid retention Encounter Details Date Type Department Care Team Description 07/16/2017 Telephone Cardiology at [facility] Martha Comer, Questions ([facility] RN retention ) [place] [address] Social History Tobacco Use Types Packs/Day [...] the direct number to the HF team ([phone]). She is aware of his appt with [employer] SALESPERSON Hans on 07/21/17 and the need for labs prior to that visit. verbalized good understanding of the current POC. documented in this encounter Plan of Treatment Upcoming Encounters Date Type Specialty Care Team Description 03/26/2022 Office Visit Cardiology Vitaliy Nobles MD [facility] CARDIOLOGY [place], [place] [address] (Wo rk) documented as of this encounter Visit Diagnoses Not on filedocumented in this encounter Care Teams Drill Rig Operator Helper Relationship Specialty Start Date End Date Lovely Vicente MD PCP - General 04/16/[address] [place] [address] documented as of this encounter
--- OUTSIDE RECORDS SUMMARY | 2022-02-20 01:46 | XMS_ITS | Encounter Summary ---
:1945 [place] [address] Care Team Providers Name Role Phone Lovely Vicente MD Primary Care Provider Encounter Details Date Type Department Care Team Description 07/16/2017 Telephone Endocrinology at [facility] C Manuela Holliday, [facility] [place] [address] ENDOCRINOLOGY DEPT [phone] [place], [place] [address] (Wo rk) Social History Tobacco [...] Vitaliy Nobles MD [facility] CARDIOLOGY [place], [place] [address] (Wo rk) documented as of this encounter Visit Diagnoses Not on filedocumented in this encounter Care Teams Coffee Maker Relationship Specialty Start Date End Date Lovely Vicente MD PCP - General 04/16/[address] [place] [address] documented as of this encounter
--- OUTSIDE RECORDS SUMMARY | 2022-02-20 01:47 | XMS_ITS | Encounter Summary ---
:1945 Author Organization [facility] [place] [address] Care Team Providers Name Role Phone Lovely Vicente MD Primary Care Provider Encounter Details Date Type Department Care Team Description 07/08/2017 Orders Only Cardiology [facility] [place] [address] Social History Tobacco Use Types Packs/Day [...] Nobles MD [facility] CARDIOLOGY [place], [place] [address] (Wo rk) documented as of [...] Mccollum ? (Age): 1945(72y) Med Rec#: ? [id number] ?Sex: ?M ? Site Loc: ? Ht / Wt: ??(cm)/ (kg) ? Pt. Loc: ? Study Date: ?? 07/07/2017 ?Pt. Type: Tape: ? Referring: Yuan Retana Reading: Yifan Perez MD ([id number]) Performing: Yifan Perez MD ([id number]) Diagnosis: SUMMARY: 1. [facility] the [facility] [...] ? Mid-Inferior ?Hypokinetic ? Mid-Inferoseptal ?Hypokinetic ? Manson-Septal ? Hypokinetic ? Manson-Anterior ? Hypokinetic ? Manson-Lateral ?Hypokinetic ? Manson-Inferior ? Hypokinetic ? Manson-Tip ?Not Seen ? This report has been electronically sign ed by: _ Yifan Perez MD ? 07/08/2017 12 :25:18 Images reviewed and interpretation ver ied [facility] Cardiac Ultrasound Laboratory Procedure Note Yifan Perez MD - 07/08/2017Formatt ing of this note might be different from the original. Procedure: Transesophageal Echocardiogra m Patient: NATALYA MCBRIDE(Age): [birth year]72y) Med Rec#: [id number] Sex: M Site Loc: Ht / Wt: (cm)/ (kg) Pt. Loc: Study Date: 07/07/2017 Pt. Type: Tape: Referring: Yuan Retana Reading: Yifan Perez MD ([id number]) Performing: Yifan Perez MD ([id number]) Diagnosis: SUMMARY: 1. [facility]ELINO [facility] for the diagnosis and evaluation of hemodynamics , overall cardiac function, and valvular pathologies as indicated. AVELINO p robe was passed atraumatically after induction and removed in a similar fashion before emergence. 2. Pre-Bypass: LV was moderatley to olivre rely depressed. EF of 20-30% with RWMA [...] Hypokinetic Mid-Posterolateral Hypokinetic Mid-Inferior Hypokinetic Mid-Inferoseptal Hypokinetic Manson-Septal Hypokinetic Manson-Anterior Hypokinetic Manson-Lateral Hypokinetic Manson-Inferior Hypokinetic Manson-Tip Not Seen This report has been electronically sign ed by: _ Yifan Perez MD 07/08/2017 12:25:18 Images reviewed and interpretation verif ied [facility] Cardiac Ultrasound Laboratory Unknown ECHO ORDERABLES Performing Organization Address City/State/ZIP Code Phon e Number [facility] documented in this encounter Visit Diagnoses Not on filedocumented in this encounter Care Teams Missile Mechanic Relationship Specialty Start Date End Date Lovely Vicente MD PCP - General 04/16/[address] [place] [address] documented as of this encounter
--- OUTSIDE RECORDS SUMMARY | 2022-02-20 01:47 | XMS_ITS | Encounter Summary ---
:1945 Author Organization [place] [address] Care Team Providers Name Role Phone Lovely Vicente MD Primary Care Provider Reason for Referral Consultation (Routine) - Closed Specialty Diagnoses / Referred By Contact Referred To Contact Procedures Cardiac Rehabilitation Diagnoses S/P CABG x 3 Yuan Webber, Cardiac Rehab, [address] [place] CARDIOTHORACIC [address] [place] [address] Referral ID Status Reason Start Date Expiration Date Visits V isits Requested Authorized [id number] Closed Consult, 07/14/2017 01/10/2018 36 36 Test & Treat Reason for Visit Auth/Cert Specialty Diagnoses / Procedures Referred By Contact Refer red To Contact Diagnoses STEMI (ST elevation myocardial infarction) NSTEMI STEMI Procedures CARDIAC CATHETERIZATION NAYE IPI Referral ID Status Reason Start Date Expiration Date Visits Requ ested Visits Authorized [id number] 1 1 Encounter Details Date Type Department Care Team Description 07/05/2017 - Hospital Encounter Cardiac Special Daphne Shahid MD [facility] [place] [address] Non-ST elevation myocardial infarction ( NSTEMI); 07/14/2017 Care Unit Yuan Preciado MD [facility] [place] [address] S/P CABG x 3 [place] [id number] Social History Tobacco Use Types Packs/Day Years [...] Patient Age: 72 y.o. Birthdate: 1945 Language: Beninese Race: White Ethnicity: Not nor Admit Date: [...] , @ 1:20p Patient to follow-up with Hand Salter/heart failure team in one week. An appointment will be made for you. You may call [phone] Patient to follow-up with Cardiac Surgery, Dr. Yuan Webber, in ~ 4 weeks with CXR, EKG. Inpatient Provider Contact Information: [facility] Section of Cardiac Surgery [facility] [address] FAX [phone] Discharge Diagnoses (Hospital Problems) Primary Diagnoses: CAD [...] SETUP performed by Manny Mcknight MD at [facility] MAIN OR ??? PRO CABG, ARTERIAL, SINGLE N/A 07/07/2017 @CABG, USING ARTERIAL GRAFT;SINGLE ARTERIAL GRAFT (WRVU 33.75) performed by Yuan Webber MD at [facility] MAIN OR ??? PRO CABG, ARTERY-VEIN, TWO N/A 07/07/2017 @CABG, TWO VENOUS GRAFTS & ARTERIAL GRAFT (WRVU 7.93) performed by Yuan Webber MD at [facility] MAIN OR ??? PRO COLONOSCOPY, REMV LESN, SNARE 01/16/2014 COLONOSCOPY, POLYPECTOMY, REMOVAL LESION BY SNARE performed by Nohemi Jaimes MD at [facility] ENDOSCOPY ??? PRO ENDOSCOPY W/VIDEO-ASST VEIN HARVEST, CABG Right 07/07/2017 ENDOSCOPIC HARVEST VEIN(S) FOR CABG (WRVU 0.31) performed by Yuan Webber MD at [facility] MAIN OR ??? PRO THYROIDECTOMY 03/28/2013 THYROIDECTOMY, TOTAL OR COMPLETE performed by Manny Mcknight MD at [facility] MAIN OR Prior To Admission Medications Prescriptions Prior to Admission Medication Sig Dispense Refill Last Dose ??? levothyroxine (SYNTHROID) 175 mcg Tablet Take 1 tablet by mouth daily. 90 tablet 3 07/05/2017 [id number] ??? ascorbic acid, vitamin C, (VITAMIN C) [...] hospital and ruled infor non-ST segment elevation PR. This almost certainly represents the residual of [...] Hospital Course: Gregory Hoang was admitted to [facility] on 07/05/2017 via the Cardiology Service. During his hospital course, he was taken emergently to the rags laborer for an ongoing STEMI. An IABP [...] not take or discontinue any prescription or fdas-fda-ndesgoy medications without asking your doctor or pharmacist [...] day to have your insulin doses adjusted. [facility] Endocrine clinic office Discharge Instructions: Call your doctor if: You have a fever of greater than 101 degrees, shaking chills, if you develop redness or drainage from your incision sites, or if you have questions. Please call your surgeon's office if you have any discharge or drainage from your chest incision. Your surgeon, Dr. Yuan Webber and/or the Cardiac Surgery Physician Admin Assistant Team may be reached at . [...] Dr. Yuan Webber. You may use a Lorane Track or treadmill but avoid any pulling [...] friends, go to a movie, go to taoism, etc. Heavy activities: No hunting, skiing, jogging, snow shoveling, snowmobiling, lawn mowing, swimming, golf or tennis until after your return appointment with the surgeon. Do not ride motorcycles, Rule.'s tractors or horses. Avoid the use of [...] should resume a low fat, low cholesterol, [place] Heart Association Diet/Diabetic diet. Driving: No driving [...] , @ 1:20p Patient to follow-up with Hand Salter/heart failure team in one week. Appointment will be made for you. You may call [phone] Patient to follow-up with Cardiac Surgery, Dr. Yuan Webber, in ~ 4 weeks with CXR, EKG. Cardiac Rehabilitation: Gregory Hoang was seen today regarding participation in the outpatient Phase 2 Cardiac Rehabilitation at [facility]. The patient agrees to a referral to this program. The referral will be sent at discharge and the patient should be contacted by the Program within 1- 2 weeks from discharge. ?? Future Appointments and Orders Future Appointments Provider Department Dept Phone 09/07/2017 3:00 PM LAB, THREE L Lab 3L [facility] [phone] 09/07/2017 4:00 PM Luz Prescott MD Endocrinology at [place] [phone] Future Orders Complete By Expires EKG 12 Lead [EKG1 Custom] 08/14/2017 02/13/2018 Process Instructions: Scheduling Instructions: Questions: Which location will this be performed?: [place] Is a rhythm strip needed?: No If EKG Reason is Pre-op Evaluation, indicate diagnosis for surgery.: XR Chest PA & Lateral (Generic) [[id number] Custom] 08/14/2017 02/13/2018 Process Instructions: Scheduling Instructions: Questions: Where will study be performed?: [facility] Portable exam?: Reason for exam and clinical history: CABG x 3 Other pertinent information: Stat read required?: Date of injury if applicable: Requested Time: Referral to Cardiac Rehab [HMX964 Custom] As directed Process Instructions: If no progress note charted, please enter Clinical details in comments. Scheduling Instructions: Questions: My question or request is: s/p CABG. Cardiac rehab at [facility] Referral to Home Health - at DISCHARGE [GKT6871 CPT(R)] As directed Process Instructions: Scheduling Instructions: Comments: DOCUMENTATION FOR VNA SERVICES (INCLUDING THOSE PATIENTS WITH MEDICARE COVERAGE REQUIRING HOME VNA SERVICES AND/OR HOSPICE SERVICES) PATIENT'S LOCATION: Gregory Hoang [address] [place] [address] [place] [id number] (home) Telephone Information: Gasket Supervisor's Name: self In discussion with the attending physician, it is certified that this patient is under their care and that they, or a Nurse Practitioner, or Physician Admin Assistant who is working directly with them, [...] ([facility] for [place] [employer] in [place] PHONE: [phone] FAX: [phone] RN orders: Cardiopulmonary assessment, incisional assessment, assess vital signs, assessment of rehab progress, medication management and effectiveness, home safety evaluation. Please draw INR if indicated and send result to:Dr Vicente [phone] PT ORDERS: Continue rehab for endurance, gait stability and strength with mobility and transfers. Home safety evaluation. Home exercise program if appropriate. Start of Care Date:24-48 hours after discharge SPECIAL INSTRUCTIONS: For any follow up questions, needs, or issues please call the Cardiac Surgery Office at [phone] FOR MEDICARE ONLY: (please delete this section [...] OR AFTER 07/17/2017 Signed: Martha Teague APRN [facility] Section of Cardiac Surgery [facility] [address] FAX [phone] Date: 07/14/2017 CC: MD Ivania Cr Betsy, PA [address] [place] [phone] documented in this encounter Discharge Instructions Discharge [...] day to have your insulin doses adjusted. [facility] Endocrine clinic office Patient InstructionsStMartha mcdonald [...] not take or discontinue any prescription or vqmn-bde-cpovwbs medications without asking your doctor or pharmacist [...] juice or regular (not diet) soda 6 [employer]s small box of raisins 4 glucose tablets [...] day to have your insulin doses adjusted. [facility] Endocrine clinic office ? Discharge Instructions: [...] Yuan Webber and/or the Cardiac Surgery Physician Admin Assistant Team may be reached at . [...] Dr. Yuan Webber. You may use a Lorane Track or treadmill but avoid any pulling [...] friends, go to a movie, go to taoism, etc. ?? Heavy activities: No hunting, skiing, jogging, snow shoveling, snowmobiling, lawn mowing, swimming, golf or tennis until after your return appointment with the surgeon. Do not ride motorcycles, Rule[employer] tractors or horses. Avoid the use of [...] should resume a low fat, low cholesterol, [place] Heart Association Diet/Diabetic diet. ?? Driving: No [...] @ 1:20p ?? Patient to follow-up with Hand Salter/heart failure team in one week. An appointment has been made for you, you can call [phone] ?? Patient to follow-up with Cardiac Surgery, Dr. Yuan Webber, in ~ 4 weeks with CXR, EKG. ? Cardiac Rehabilitation: Gregory Hoang??was seen today regarding participation in the outpatient Phase 2 Cardiac Rehabilitation at [facility]. ?? The patient agrees to a referral to this program.? The referral will be sent at discharge and the patient should be contacted by the Program within 1- 2 weeks from discharge. ? Future Appointments and Orders Future Appointments Provider Department Dept Phone ?? 09/07/2017 3:00 PM LAB, THREE L Lab 3L [facility] [phone] ?? 09/07/2017 4:00 PM Luz Prescott MD Endocrinology at [place] [phone] Future Orders Complete By Expires ?? EKG 12 Lead [EKG1 Custom] 08/14/2017 02/13/2018 ?? Process Instructions: ? Scheduling Instructions: ? Questions: ? Which location will this be performed?: [place] ?? Is a rhythm strip needed?: No ?? If EKG Reason is Pre-op Evaluation, indicate diagnosis for surgery.: ?? XR Chest PA & Lateral (Generic) [[id number] Custom] 08/14/2017 02/13/2018 ?? Process Instructions: ? Scheduling Instructions: ? Questions: ? Where will study be performed?: [facility] ?? Portable exam?: ?? Reason for exam and clinical history: CABG x 3 ?? Other pertinent information: ?? Stat read required?: ?? Date of injury if applicable: ?? Requested Time: ?? Referral to Cardiac Rehab [[id number] Custom] As directed ? Process Instructions: ?? If no progress note charted, please enter Clinical details in comments. ?? Scheduling Instructions: ? Questions: ? My question or request is: s/p CABG. Cardiac rehab at [facility] ? Arrangements for VNA/home care: As [...] gauge x 4 times daily. 10/08 Needle levothyroxine Take 1 tablet by mouth 90 [...] mg by mouth 0 01/16/2019 tablet daily. clobetasol (TEMOVATE) Apply 1 Application 1 [...] 15 mL 1 07/14/2017 07/20/2017 subcutaneously nightly. fluocinolone acetonide Twice daily to less 60 [...] RN - 07/14/2017 2:34 PM EST The patient/home office representative has been provided a list of Home Health Agencies/DME vendors which serve their preferred geographic area. A letter describing our affiliations was reviewed with them and theywere educated about their right to choose where referrals are placed. Patient requests referral to [facility] PHONE: [phone] FAX: [phone] Expected date of discharge: 07/14 Referral routed to the Projection Technician for matching with agency/vendor and to [...] day to have your insulin doses adjusted. [facility] Endocrine clinic office Kathie Carrera APRN [facility] Endocrinology Diabetes Management Pager [phone] 20 minutes of this 35 minute visit was spent with the patient in counseling on diabetes and treatment plan, reviewing all glucose and insulin data as well as relevant laboratory results with the patient, and coordination of care on the inpatient unit including nursing and primary team. Zulma Andres, RN - 07/14/2017 10:30 AM EST The patient/home office representative has been provided a list of Home Health Agencies/DME vendors which serve their preferred geographic area. A letter describing our affiliations was reviewed with them and theywere educated about their right to choose where referrals are placed. Patient requests referral to : Yasmani Munguia ([facility] [place] [facility]-is in [place]) PHONE: [phone] FAX: [phone]. Expected date of discharge: 07/14/17 Referral routed to the Projection Technician for matching with agency/vendor and to [...] hours. If BG remains greater than 240, [id number] units (no more than three times) &??call [...] #6 s/p CABG X3. FSBG [address] at [place], reports no symptoms but did drink some [...] Will continue to follow Katerin Azul APRN [facility] Endocrinology Diabetes Management Pager [phone] minutes of this 25 minute visit [...] of infiltration/extravasation Discussed plan of care with CHEMIST INSTRUMENTATION and RN. Elevate exrtemity and apply intermittent Warm compresses. Name of MD contacted Dr. Shaw Brown 07/13/2017 @ 0611 Name of RN contacted Ale Ranegl RN Name of Pharmacist if consulted NA Name of Plastics MD ( if consulted) NA (Mandatory photo for infiltrations/ extravasations scoring a stage 2 or greater, but recommended forstage 1)( include measuring tape and identifier in the photo) COMMUNITY AMBASSADOR CARING FOR THIS PATIENT WILL CONTINUE TO [...] measuring tape and identifier in the photo) COMMUNITY AMBASSADOR CARING FOR THIS PATIENT WILL CONTINUE TO [...] regard to both infiltrates addressed by this contract writer.All of Mr. Hoang's responses were entirely appropriate. Images of infiltrates attached here. Martha Sharp APRN - 07/13/2017 8:01 AM EST Cardiac Surgery Progress Note: ID: [id number] 72 year old male POD#6 s/p CABGx3 [...] discharge. ?? I have met with the patient/home office representative to discuss discharge planning needs. I have provided the [facility], Office of Care Management letter from the Metal Building Assembler pertaining to rehab referrals. I have also provided a letter describing our affiliations within the [facility] and educated them about their right to choose where referrals are placed. ?? I reviewed the different levels of rehab including SNF, swing, acute and LTAC with the patient/home office representative. ?? The patient/home office representative has been provided a list of facilities within their preferred geographic area. ?? I have requested that the patient/home office representative provide at least three choices for referral. ?? The patient/home office representative have requested referrals to: ?? 1. . ?? 2. [facility] ?? 3. More to be entered ?? Expected date of discharge: 07/14 Note routed to Projection Technician who will communicate referrals to facilities [...] hours. If BG remains greater than 240, [id number] units (no more than three times) & [...] hours. If BG remains greater than 240, yfykkk70 units (no more than three times) & call for new basal insulin orders. ??If less than 240 after two hours, give no insulin and resume prior schedule. Will continue to follow Katerin Patel. STACIE Azul [facility] Endocrinology Diabetes Management Pager [phone] 20 minutes of this 35 minute visit was spent with the patient in counseling on diabetes and treatment plan, reviewing all glucose and insulin data as well as relevant laboratory results with the patient, and coordination of care on the inpatient unit including nursing and primary team. Makayla Stevenson APRN - 07/12/2017 9:52 AM EST Cardiac Surgery Progress Note: ID: [id number] 72 year old male POD#5 s/p CABGx3 [...] 07/11/2017 7:18 PM EST Patient arrived from [facility]. VSS. MSI dressing pulled off with fresh [...] AM EST Cardiac Surgery Progress Note: ID: [id number] 72 year old male POD#4 s/p CABGx3 [...] hours. If BG remains greater than 240, [id number] units (no more than three times) & [...] AM EST Cardiac Surgery Progress Note: ID: [id number] 72 year old male POD#3 s/p CABGx3 [...] Gas) No results found for: PHART, PO2ART, AOQ5BEG Assessment/Plan: 72 year old male POD#3 s/p [...] Encounter Note Patient Name: Gregory Hoang : [id number] MR#: [id number] Admit Date: 07/05/2017 4:20 PM Hospital Day 4 days Narrative: Patient was sitting in chair, hugging heart pillow, opened his eyes, nodding to come into room Assessment: Patient was sleepy. Intervention and Outcome: Introduced fine grader services and patient reached his hand out in appreciation. Follow-up: Manager Housekeeping remains available for support. Time in Direct Care: 5 min. Mami Thao 07/09/2017 Philipp, Nick Patel MD - 07/09/2017 1:35 PM EST STAFF PROGRESS NOTE Critical Care Medicine Author: NICK ESGAL MD Patient seen and examined on critical [...] 07/09/2017 10:45 AM EST Report given to bell staff to cover care Maddison Cee PA - 07/09/2017 9:00 AM EST Cardiac Surgery Progress Note: ID: [id number] 72 year old male POD#2 s/p CABGx3 [...] Attending Surgeon on rounds. Signed: STEPHANIE Iqbal [facility] Section of Cardiac Surgery Date: 07/09/2017 Magnolia Santiago [facility] - 07/09/2017 1:33 AM EST [...] when IABP d/c'ed. Gretchen Carolina, PT Pager [phone] Maddison Cee PA - 07/08/2017 11:27 AM EST Cardiac Surgery Progress Note: ID: [id number] 72 year old male POD#1 s/p CABGx3 [...] Attending Surgeon on rounds. Signed: STEPHANIE Iqbal [facility] Section of Cardiac Surgery Date: 07/08/2017 Nick Segal MD - 07/08/2017 10:27 AM EST STAFF PROGRESS NOTE Critical Care Medicine Author: NICK SEGAL MD Patient seen and examined on critical care rounds. Grgeory Hoang is a 72 y.o. male with [...] unit. NICK SEGAL MD 07/08/2017 Jay Munoz [facility] - 07/08/2017 4:33 AM EST [...] in place in R femoral. No hematoma. INKER MACHINE- Intact Psych- Anxious Skin- Dry, no peripheral [...] Ramírez MD, PGY-1 Cardiology S1 (pgr. [id number]) Daphne Shahid MD - 07/06/2017 10:18 PM [...] intact. IABP in place in R femoral. INKER MACHINE- Intact Psych- Anxious Skin- Dry, no peripheral [...] quantitative left ventricular ejection fraction by biplane Onelil's method is 29%. Doppler assessment is consistent [...] Ramírez MD, PGY-1 Cardiology S1 (pgr. [id number]) . CARDIOLOGY ATTENDING NOTE Patient: Gregory Hoang [...] note for details. DAPHNE SHAHID MD Pager [phone] Jet Mckenna MD - 07/05/2017 6:48 PM EST Preliminary Cardiac Catheterization Procedure Note: Procedure(s) performed: Left heart cath, IABP insertion Access: Right TELETYPE OPERATOR-->8fr IABP A time-out was conducted prior to [...] effect. Heparin gtt maintained. Pt transferred to rags laborer. documented in this encounter H&P Notes Daphne Shahid MD - 07/05/2017 6:08 PM EST CARDIOLOGY HISTORY & PHYSICAL EXAM Date of Admission: 07/05/2017 ( Hospital Day 0 days ) Responsible Attending: Daphne Shahid MD PCP: Lovely Vicente MD PCP#: [phone] Patient Active Problem List Diagnosis Code ??? [...] No significant valvular disease. Taken to the rags laborer urgently for ongoing STEMI. [facility] Labs: INR 1.0 WBC 5.88 Hgb [...] monitor I/O - s/p lasix in the rags laborer, redose to aim net neg 1L [...] - ISS - hold metformin - f/u [facility] #Home Meds - continue levothyroxine 175mcg - CPAP at night # Routine - DVT PPx: heparin drip - Diet: NPO - Code Status: FULL - Dispo: [facility] Cedric Bey MD Internal Medicine, PGY-2 Cardiology S1, Team Pager # [phone] CARDIOLOGY ATTENDING NOTE Patient: Gregory Hoang Date [...] amenable for PCI. DAPHNE SHAHID MD Pager [phone] documented in this encounter Miscellaneous Notes Consult Note - Daphne Shahid MD - 07/14/2017 11:46 AM EST Heart Failure Service Inpatient Consult Note Gregory Hoang Date of : 1945 Age: 72 y.o. Today's date: 07/14/17 PCP: Lovely Vicente MD SOFT MUD MOLDER: None Place of Service: [facility] Reason for Consult: Dr. Webber has requested [...] SETUP performed by Manny Mcknight MD at [facility] MAIN OR ??? PRO CABG, ARTERIAL, SINGLE N/A 07/07/2017 @CABG, USING ARTERIAL GRAFT;SINGLE ARTERIAL GRAFT (WRVU 33.75) performed by Yuan Webber MD at [facility] MAIN OR ??? PRO CABG, ARTERY-VEIN, TWO N/A 07/07/2017 @CABG, TWO VENOUS GRAFTS & ARTERIAL GRAFT (WRVU 7.93) performed by Yuan Webber MD at [facility] MAIN OR ??? PRO COLONOSCOPY, REMV LESN, SNARE 01/16/2014 COLONOSCOPY, POLYPECTOMY, REMOVAL LESION BY SNARE performed by Nohemi Jaimes MD at [facility] ENDOSCOPY ??? PRO ENDOSCOPY W/VIDEO-ASST VEIN HARVEST, CABG Right 07/07/2017 ENDOSCOPIC HARVEST VEIN(S) FOR CABG (WRVU 0.31) performed by Yuan Webber MD at [facility] MAIN OR ??? PRO THYROIDECTOMY 03/28/2013 THYROIDECTOMY, TOTAL OR COMPLETE performed by Manny Mcknight MD at [facility] MAIN OR Outpt Meds: Current Outpatient [...] following studies: EKG 07/14/17: NSR 75 bpm, SENIOR IT SECURITY ANALYST anterior infarct, LAD CXR 07/11/17: FINDINGS: Sternotomy wires. The patient has been extubated, left chest tube removed, and [place]-Suzi catheter removed since the 07/07/2017 study. Atelectasis [...] was discussed with Zehra. Jaden Kelley MD Sliver Handler Pager [phone] CARDIOLOGY ATTENDING NOTE Patient: Gregory Hoang Date [...] heart failure clinic. DAPHNE SHAHID MD Pager [phone] Plan of Care - Alden Chavarria, THERAPY TECH - 07/14/2017 11:35 AM EST Problem: Patient [...] Discharge Disposition: home with assist Alden Chavarria, THERAPY TECH Pager: [phone] Inpatient Physical Therapy Problem: Acute Rehab Services [...] sit/sit to supine -- Bed Mobility Goal, Elbert Level supervision required -- Bed Mobility Goal, [...] - 3 days -- Gait Training Goal, Elbert Level supervision required -- Gait Training Goal, [...] days -- Transfer Training Goal, Activity Type evu-xt-fmbbe/cossv-fr-ozr;zqa-ip-xjmwv/avwsp-hk-ygt;toilet -- Transfer Train Goal, Elbert Level supervision required -- Transfer Training Goal, [...] keeping present for 2 days per family. Pit Hand noted of frustrations, house keeping sent to room. Patient offered showered twice, refused. at bedside, frustrated that shower not complete, informed that patient had refused several times. requesting to see BAND SAW RUNNER, paged sent to Martha, will come to bedside (middle of consult). not willing to wait, Martha notified that family had gone home. Encouraged to come for morning rounds a t 8am. Diabetes team at bedside - insulin adjustments made. Call cabello in reach. Continue to monitor. PLAN MOVING FORWARD: Ambulate, dressing changes BID, Please change drsg at 4am per Martha BAND SAW RUNNER request. INDIVIDUALIZED FALL PREVENTION INTERVENTIONS: Patient-specific fall [...] levels on the lower side, 60ml of Sawyer juice given after a FS of 80. [...] Conf 07/13/17 0502 Interdisciplinary Rounds/Family Conf Participants business case analyst;dietitian/nutrition services;nursing;occupational therapy;patient;pharmacy;physical therapy;physician Plan of Care - [...] Anticipated Discharge Disposition: home with assist Pager: [phone] CLARISSA SEGAL, PT 07/12/2017 Physical Therapy Rehabilitation [...] to sit/sit to supine Bed Mobility Goal, Elbert Level supervision required Bed Mobility Goal, Additional Goal adheres to psternal precautions for transfer Goal: Gait Training Goal Stand Alone Therapy Goal Outcome: Ongoing (Interventions Implemented as Appropriate) 07/12/17 1225 Gait Training Goal Gait Training Goal, Date Established 07/12/17 Gait Training Goal, Time to Achieve 2 - 3 days Gait Training Goal, Elbert Level supervision required Gait Training Goal, Assist [...] 3 days Transfer Training Goal, Activity Type ulo-sa-fpqsx/kxxfk-ej-zbx;gnt-fl-flwab/tepuc-fm-inv;toilet Transfer Train Goal, Elbert Level supervision required Transfer Training Goal, Additional Goal adheres to sternal precautions during transfer Consult Note - Octavia Vaughn RN - 07/12/2017 10:50 AM EST [facility] Gregory Hoang was seen today regarding participation in the outpatient Phase 2 Cardiac Rehabilitation at [facility]. The patient agrees to a referral [...] IV site, amio to other piv and ASSISTANT WOMEN'S TENNIS COACH at bedside to help assess, IV removed. [...] (Interventions Implemented as Appropriate) 07/11/17199907/11/17200907/12/17 [facility] Daily Care Interventions Self-Care Promotion -- -- [...] staff, he stood and marched in place. Van Orin weak, wanting to sit back down. Remained [...] Outcome: Ongoing (Interventions Implemented as Appropriate) 07/05/17 4098 Mutuality/Individual Preferences What Anxieties, Fears or Concerns [...] Health/Prescription Coverage: Primary Insurance: MEDICARE Secondary Insurance: [employer] [place] Prescription Coverage: yes Preferred Pharmacy: [facility] [place] Other: none Primary Care Provider: Lovely Vicente MD [phone] Patient/Caregiver Goals of Treatment:live and get my breath back Potential Needs for Transition of Care: Rehab/SNF: [facility] Home Health: NA DME: TBD Dialysis: na Community Resources: available Transportation: yes Other: none Anticipated Barriers to Discharge/Special Considerations: none Plan: Likely SNF Rehab before home A member of the Care Management team will continue to monitor progress, follow for continuity of care and assist with transition of care planning. ERLIN Weiss Pager: [phone] Consult Note - Katerin Azul RN - [...] management and to provide a review of half-way diabetes care. Diabetes History: Gregory Hoang has [...] potential to d/c gtt and start CF. [facility] diabetes care: Medications - Outpatient treatment regimen recommendations pending based on the hospital course. Monitoring - continue BG tid ac & hs Diet - low fat/low carb diet Exercise - weight-bearing exercise 30 min/day, as tolerated Thank you for allowing us to provide care for your patient W/E coverage, Dr. Jeane Tatum, pager [phone] Katerin Patel. STACIE Azul Endocrinology Diabetes Management Pager [phone] Plan of Care - Stephanie Godoy RN [...] Webber MD - 07/07/2017 6:27 PM EST [facility] Operative Note Patient Name: Gregory Hoang : [id number] MR#: [id number] Case Date: 07/07/2017 Surgeon: Surgeon(s) and Role: * Yuan Webber MD - Primary * Michael Drake PA - Physician Admin Assistant * Linda Flores PA - Physician Admin Assistant Preoperative diagnosis: 3VD Postoperative diagnosis: CAD, [...] Operative Note Patient Name: Gregory Hoang : [id number] MR#: [id number] Case Date: 07/07/2017 Surgeon: Surgeon(s) and Role: * Yuan Webber MD - Primary * Michael Drake PA - Physician Admin Assistant * Linda Flores PA - Physician Admin Assistant Preoperative diagnosis: 3VD Postoperative diagnosis: CAD, [...] major CV events such as , stroke, PR, repeat revascularization compared to PCI). In this [...] code status: Full Code Katty Jovani, MS3 [employer] [facility] [employer] [facility] Cardiology S1 (Pager [phone]) Plan of Care - Emelia Ibarra RN [...] hospital and ruled infor non-ST segment elevation PR. This almost certainly represents the residual of [...] SETUP performed by Manny Mcknight MD at [facility] MAIN OR ??? PRO COLONOSCOPY, REMV LESN, SNARE 01/16/2014 COLONOSCOPY, POLYPECTOMY, REMOVAL LESION BY SNARE performed by Nohemi Jaimes MD at [facility] ENDOSCOPY ??? PRO THYROIDECTOMY 03/28/2013 THYROIDECTOMY, TOTAL OR COMPLETE performed by Manny Mcknight MD at [facility] MAIN OR Social History: Social History [...] with other involved physicians Yuan Webber MD [phone] Med Student Progress Note - Jovani Katty [...] major CV events such as , stroke, PR, repeat revascularization compared to PCI). 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 Lasix given in rags laborer, 1.4 L out at this time. [...] having thediscussion at that time. Plan of David - Kim Galindo MD - 07/05/2017 5:52 [...] Vitaliy Nobles MD [facility] CARDIOLOGY [place], [place] [address] (Wo rk) Scheduled Orders Name [...] procedure are i n the results section. C 40A CREW CHIEF SCAN 07/15/2017 12:00 Res ults for this [...] Routine 07/08/2017 4:00 Results f or this ([facility]) AM EST procedure are i n [...] Yes 07/07/2017 1:35 CAD VEIN(S) FOR CABG ([facility] PM EST 0.31) @CABG, TWO VENOUS GRAFTS Yes 07/07/2017 1:35 CAD & ARTERIAL GRAFT ([facility] PM EST 7.93) @CABG, USING ARTERIAL Yes 07/07/2017 1:35 CAD GRAFT;SINGLE ARTERIAL PM EST GRAFT ([facility] 33.75) PREPARE COAG FACTORS STAT 07/07/2017 1:25 [...] Routine 07/06/2017 7:40 Results f or this ([facility]) PM EST procedure are i n [...] Timed 07/06/2017 2:10 Results f or this ([facility]) PM EST procedure are i n [...] section. TYPE AND SCREEN Routine 07/06/2017 12:00 ([facility]/SHANDA) PM EST APTT STAT 07/06/2017 11:24 [...] Routine 07/06/2017 8:10 Results f or this ([facility]) AM EST procedure are i n [...] Routine 07/06/2017 2:20 Results f or this ([facility]) AM EST procedure are i n [...] Routine 07/05/2017 8:20 Results f or this ([facility]) PM EST procedure are i n [...] Timed 07/05/2017 4:55 Results f or this ([facility] PM EST procedure are i n the [...] [place] at 08/19/2017 10:30 AM Martha Teague BAG REPAIRER IMG DX ORDERABLES SCAN DOC: C 40A CREW CHIEF (07/15/2017 12:00 AM EST) Narrative 07/15/2017 12:00 [...] ORDR/RSLT POCT Glucose (07/14/2017 11:56 AM EST) P athologist Signature POC Glucose 186 65 - 199 [facility] mg/dL [facility] LABORATORY Comment: Supplemental ranges: <140 mg/dL before meals <180 mg/dL all other times of the day Specimen Anatomical Collection Method Collection Time Receive d Time (Source) Location / / Volume Laterality Blood specimen 07/14/2017 11:56 7 (specimen) AM EST 11:56 AM EST Yuan Webber MD POINT OF CARE TEST ORDERABLE S Performing Organization Address City/State/ZIP Code Phon e Number [address] POCT Glucose (07/14/2017 7:52 AM EST) athologist Signature POC Glucose 126 65 - 199 [facility] mg/dL [facility] LABORATORY Comment: Supplemental ranges: <140 mg/dL before meals <180 mg/dL all other times of the day Specimen Anatomical Collection Method Collection Time Receive d Time (Source) Location / / Volume Laterality Blood specimen 07/14/2017 7:52 AM 017 7:52 (specimen) EST AM EST Yuan Webber MD POINT OF CARE TEST ORDERABLE S Performing Organization Address City/[facility]/[place] [address] (ABNORMAL) Prothrombin Time (07/14/2017 4:46 AM EST) P athologist Signature PT 26.4 (H) 11.8 - 14.0 [facility] LABORATORY INR 2.4 (H) 0.9 - 1.1 [facility] LABORATORY [...] Wilson APRN HEMATOLOGY ORDERABLES Performing Organization Address City/[facility]/ZIP Code Phon e Number [address] Potassium (07/14/2017 4:46 AM EST) athologist Signature Potassium 4.3 3.5 - 5.0 [facility]/L [facility] LABORATORY Comment: Please note: ??Patients [...] Wilson APRN CHEMISTRY ORDERABLES Performing Organization Address City/[facility]/[place] [address] POCT Glucose (07/14/2017 4:34 AM EST) athologist Signature POC Glucose 115 65 - 199 [facility] mg/dL [facility] LABORATORY Comment: Supplemental ranges: <140 mg/dL before meals <180 mg/dL all other times of the day Specimen Anatomical Collection Method Collection Time Receive d Time (Source) Location / / Volume Laterality Blood specimen 07/14/2017 4:34 AM 017 4:34 (specimen) EST AM EST Yuan Webber MD POINT OF CARE TEST ORDERABLE S Performing Organization Address City/[facility]/[place] [address] POCT Glucose (07/13/2017 11:33 PM EST) athologist Signature POC Glucose 132 65 - 199 [place] [facility] mg/dL [facility] LABORATORY Comment: Supplemental ranges: <140 mg/dL before meals <180 mg/dL all other times of the day Specimen Anatomical Collection Method Collection Time Receive d Time (Source) Location / / Volume Laterality Blood specimen 07/13/2017 11:33 7 (specimen) PM EST 11:33 PM EST Yuan Webber MD POINT OF CARE TEST ORDERABLE S Performing Organization Address City/State/ZIP Code Phon e Number [address] POCT Glucose (07/13/2017 9:25 PM EST) athologist Signature POC Glucose 121 65 - 199 [place] [facility] mg/dL [facility] LABORATORY Comment: Supplemental ranges: <140 mg/dL before meals <180 mg/dL all other times of the day Specimen Anatomical Collection Method Collection Time Receive d Time (Source) Location / / Volume Laterality Blood specimen 07/13/2017 9:25 PM 017 9:25 (specimen) EST PM EST Yuan Webber MD POINT OF CARE TEST ORDERABLE S Performing Organization Address City/State/ZIP Code Phon e Number [address] POCT Glucose (07/13/2017 4:55 PM EST) athologist Signature POC Glucose 79 65 - 199 [facility] mg/dL [facility] LABORATORY Comment: Supplemental ranges: <140 mg/dL before meals <180 mg/dL all other times of the day Specimen Anatomical Collection Method Collection Time Receive d Time (Source) Location / / Volume Laterality Blood specimen 07/13/2017 4:55 PM 017 4:55 (specimen) EST PM EST Yuan Webber MD POINT OF CARE TEST ORDERABLE S Performing Organization Address City/State/[place] [address] POCT Glucose (07/13/2017 11:16 AM EST) athologist Signature POC Glucose 163 65 - 199 [place] [facility] mg/dL [facility] LABORATORY Comment: Supplemental ranges: <140 mg/dL before meals <180 mg/dL all other times of the day Specimen Anatomical Collection Method Collection Time Receive d Time (Source) Location / / Volume Laterality Blood specimen 07/13/2017 11:16 7 (specimen) AM EST 11:16 AM EST Yuan Webber MD POINT OF CARE TEST ORDERABLE S Performing Organization Address City/State/[place] [address] POCT Glucose (07/13/2017 8:07 AM EST) athologist Signature POC Glucose 96 65 - 199 [facility] mg[facility] LABORATORY Comment: Supplemental ranges: <140 mg/dL before meals <180 mg/dL all other times of the day Specimen Anatomical Collection Method Collection Time Receive d Time (Source) Location / / Volume Laterality Blood specimen 07/13/2017 8:07 AM 017 8:07 (specimen) EST AM EST Yuan Webber MD POINT OF CARE TEST ORDERABLE S Performing Organization Address City/State/ZIP Code Phon e Number [address] (ABNORMAL) Prothrombin Time (07/13/2017 4:26 AM EST) athologist Signature PT 20.8 (H) 11.8 - 14.0 [facility] LABORATORY INR 1.8 (H) 0.9 - 1.1 [facility] LABORATORY [...] Wilson APRN HEMATOLOGY ORDERABLES Performing Organization Address City/State/[place] [address] (ABNORMAL) Basic Metabolic Panel (non-fasting) (07/13/2017 4:26 AM EST) athologist Signature Glucose Lvl 95 65 - 199 [facility] LABORATORY Comment: Diabetes: >=200 mg/dL plus symp toms BUN 25 (H) 10 - 20 mg/dL [facility] LABORATORY Creatinine 1.19 0.80 - 1.50 [...] - 107 mmol/L [facility] LABORATORY CO2 26 22 - 31 mmol/L [facility] LABOR[facility] Anion Gap 13 5 - 15 mmol/L [facility] LABORATORY Calcium 7.7 (L) 8.5 - 10.5 mg/dL [facility] LABORATORY Estimated GFR 60 >=60 [facility] LABORATORY Comment: The reported eGFR should be multiplied b y 1.2 for patients. The MDRD is not an appropriate measure o f renal function for patients with body mass extremes or in patients with acute kidney failure. http://Iptune.Guzu/DHnkdep http://Glofox/DHMCnkf Specimen Anatomical Collection Method Collection Time Receive d Time (Source) Location / / Volume Laterality Blood specimen 07/13/2017 4:26 AM 017 4:46 (specimen) EST AM EST Resulting Agency Comment Spec In Lab Makayla Wilson APRN CHEMISTRY ORDERABLES Performing Organization Address City/State/[place] [address] POCT Glucose (07/13/2017 3:52 AM EST) P athologist Signature POC Glucose 93 65 - 199 [facility] mg/dL [facility] LABORATORY Comment: Supplemental ranges: <140 mg/dL before meals <180 mg/dL all other times of the day Specimen Anatomical Collection Method Collection Time Receive d Time (Source) Location / / Volume Laterality Blood specimen 07/13/2017 3:52 AM 12/19/2 017 3:52 (specimen) EST AM EST Yuan Webber MD POINT OF CARE TEST ORDERABLE S Performing Organization Address City/State/ZIP Code Phon e Number [address] POCT Glucose (07/13/2017 12:21 AM EST) athologist Signature POC Glucose 80 65 - 199 [place] [facility] mg/dL [facility] LABORATORY Comment: Supplemental ranges: <140 mg/dL before meals <180 mg/dL all other times of the day Specimen Anatomical Collection Method Collection Time Receive d Time (Source) Location / / Volume Laterality Blood specimen 07/13/2017 12:21 7 (specimen) AM EST 12:21 AM EST Yuan Webber MD POINT OF CARE TEST ORDERABLE S Performing Organization Address City/State/ZIP Code Phon e Number [address] POCT Glucose (07/12/2017 8:22 PM EST) athologist Signature POC Glucose 119 65 - 199 [place] [facility] mg/dL [facility] LABORATORY Comment: Supplemental ranges: <140 mg/dL before meals <180 mg/dL all other times of the day Specimen Anatomical Collection Method Collection Time Receive d Time (Source) Location / / Volume Laterality Blood specimen 07/12/2017 8:22 PM 017 8:22 (specimen) EST PM EST Yuan Webber MD POINT OF CARE TEST ORDERABLE S Performing Organization Address City/State/[place] [address] POCT Glucose (07/12/2017 4:02 PM EST) athologist Signature POC Glucose 114 65 - 199 [place] [facility] mg/dL [facility] LABORATORY Comment: Supplemental ranges: <140 mg/dL before meals <180 mg/dL all other times of the day Specimen Anatomical Collection Method Collection Time Receive d Time (Source) Location / / Volume Laterality Blood specimen 07/12/2017 4:02 PM 017 4:02 (specimen) EST PM EST Yuan Webber MD POINT OF CARE TEST ORDERABLE S Performing Organization Address City/State/ZIP Code Phon e Number [address] POCT Glucose (07/12/2017 11:28 AM EST) athologist Signature POC Glucose 164 65 - 199 [facility] LABORATORY Comment: Supplemental ranges: <140 mg/dL before meals <180 mg/dL all other times of the day Specimen Anatomical Collection Method Collection Time Receive d Time (Source) Location / / Volume Laterality Blood specimen 07/12/2017 11:28 7 (specimen) AM EST 11:28 AM EST Yuan Webber MD POINT OF CARE TEST ORDERABLE S Performing Organization Address City/State/ZIP Code Phon e Number [address] POCT Glucose (07/12/2017 7:34 AM EST) athologist Signature POC Glucose 109 65 - 199 [facility] LABORATORY Comment: Supplemental ranges: <140 mg/dL before meals <180 mg/dL all other times of the day Specimen Anatomical Collection Method Collection Time Receive d Time (Source) Location / / Volume Laterality Blood specimen 07/12/2017 7:34 AM 017 7:34 (specimen) EST AM EST Yuan Webber MD POINT OF CARE TEST ORDERABLE S Performing Organization Address City/State/[place] [address] (ABNORMAL) Basic Metabolic Panel (non-fasting) (07/12/2017 4:11 AM EST) athologist Signature Glucose Lvl 92 65 - 199 [facility] mg/dL [facility] LABORATORY Comment: Diabetes: >=200 mg/dL plus symp toms BUN 31 (H) 10 - 20 mg/dL [facility] LABORATORY Creatinine 1.23 0.80 - 1.50 mg/dL [facility] LABORATORY Sodium 145 135 - 145 mmol/L [facility] Potassium Not Perf 3.5 [...] estions. Chloride 106 98 - 107 mmol/L [facility] CO2 Not Perf 22 - 31 mmol/L [facility] Comment: Add-on request. Sample too old to perform test. Anion Gap Not Calculated 5 - 15 mmol/L [facility] Calcium 8.1 (L) 8.5 - 10.5 mg/dL [facility] LABORATORY Estimated GFR 58 (L) >=60 [facility] LAB[facility]ORY Comment: The reported eGFR should be multiplied b y 1.2 for patients. The MDRD is not an appropriate measure o f renal function for patients with body mass extremes or in patients with acute kidney failure. http://Glofox/DHnkdep http://Glofox/DHMCnkf Specimen Anatomical Collection Method Collection Time Receive d Time (Source) Location / / Volume Laterality Blood specimen 07/12/2017 4:11 AM 017 8:57 (specimen) EST AM EST Resulting Agency Comment Spec In Lab Makayla Wilson STACIE CHEMISTRY ORDERABLES Performing Organization Address City/State/[place] [address] (ABNORMAL) Prothrombin Time (07/12/2017 4:11 AM EST) P athologist Signature PT 15.4 (H) 11.8 - 14.0 [facility] LABORATORY INR 1.2 (H) 0.9 - 1.1 [facility] LABORATORY [...] Wilson APRN HEMATOLOGY ORDERABLES Performing Organization Address City/[facility]/[place] [address] Potassium (07/12/2017 4:11 AM EST) P athologist Signature Potassium 3.8 3.5 - 5.0 [facility] mmol/L [facility] LABORATORY Comment: Please note: ??Patients [...] Wilson STACIE CHEMISTRY ORDERABLES Performing Organization Address City/[facility]/[place] [address] POCT Glucose (07/12/2017 4:10 AM EST) P athologist Signature POC Glucose 90 65 - 199 [facility] LABORATORY Comment: Supplemental ranges: <140 mg/dL before meals <180 mg/dL all other times of the day Specimen Anatomical Collection Method Collection Time Receive d Time (Source) Location / / Volume Laterality Blood specimen 07/12/2017 4:10 AM 017 4:10 (specimen) EST AM EST Yuan Webber MD POINT OF CARE TEST ORDERABLE S Performing Organization Address City/[facility]/[place] [address] POCT Glucose (07/11/2017 11:57 PM EST) athologist Signature POC Glucose 98 65 - 199 [facility] mg/dL [facility] LABORATORY Comment: Supplemental ranges: <140 mg/dL before meals <180 mg/dL all other times of the day Specimen Anatomical Collection Method Collection Time Receive d Time (Source) Location / / Volume Laterality Blood specimen 07/11/2017 11:57 7 (specimen) PM EST 11:57 PM EST Yuan Webber MD POINT OF CARE TEST ORDERABLE S Performing Organization Address City/State/[place] [address] POCT Glucose (07/11/2017 8:32 PM EST) athologist Signature POC Glucose 146 65 - 199 [facility] LABORATORY Comment: Supplemental ranges: <140 mg/dL before meals <180 mg/dL all other times of the day Specimen Anatomical Collection Method Collection Time Receive d Time (Source) Location / / Volume Laterality Blood specimen 07/11/2017 8:32 PM 017 8:32 (specimen) EST PM EST Yuan Webber MD POINT OF CARE TEST ORDERABLE S Performing Organization Address City/State/[place] [address] XR Chest PA & [...] e xtubated, left chest tube removed, and [place]-Suzi catheter removed since the study. Atelectasis at [...] e xtubated, left chest tube removed, and [place]-Suzi catheter removed since the study. Atelectasis at [...] 223 (H) 65 - 199 [facility] mg/dL [facility] LABORATORY Comment: Supplemental ranges: <140 mg/dL before meals <180 mg/dL all other times of the day Specimen Anatomical Collection Method Collection Time Receive d Time (Source) Location / / Volume Laterality Blood specimen 07/11/2017 4:05 PM 017 4:05 (specimen) EST PM EST Yuan Webber MD POINT OF CARE TEST ORDERABLE S Performing Organization Address City/State/[place] [address] POCT Glucose (07/11/2017 11:55 AM EST) athologist Signature POC Glucose 176 65 - 199 [facility] mg/dL [facility] LABORATORY Comment: Supplemental ranges: <140 mg/dL before meals <180 mg/dL all other times of the day Specimen Anatomical Collection Method Collection Time Receive d Time (Source) Location / / Volume Laterality Blood specimen 07/11/2017 11:55 7 (specimen) AM EST 11:55 AM EST Yuan Webber MD POINT OF CARE TEST ORDERABLE S Performing Organization Address City/State/ZIP Code Phon e Number [address] POCT Glucose (07/11/2017 7:53 AM EST) athologist Signature POC Glucose 189 65 - 199 [place] [facility] mg/dL [facility] LABORATORY Comment: Supplemental ranges: <140 mg/dL before meals <180 mg/dL all other times of the day Specimen Anatomical Collection Method Collection Time Receive d Time (Source) Location / / Volume Laterality Blood specimen 07/11/2017 7:53 AM 017 7:53 (specimen) EST AM EST Yuan Webber MD POINT OF CARE TEST ORDERABLE S Performing Organization Address City/State/[place] [address] POCT Glucose (07/11/2017 4:22 AM EST) athologist Signature POC Glucose 151 65 - 199 [place] [facility] mg/dL [facility] LABORATORY Comment: Supplemental ranges: <140 mg/dL before meals <180 mg/dL all other times of the day Specimen Anatomical Collection Method Collection Time Receive d Time (Source) Location / / Volume Laterality Blood specimen 07/11/2017 4:22 AM 017 4:22 (specimen) EST AM EST Yuan Webber MD POINT OF CARE TEST ORDERABLE S Performing Organization Address City/State/[place] [address] Potassium (07/11/2017 2:20 AM EST) athologist Signature Potassium 4.5 3.5 - 5.0 [facility] mmol/L [facility] LABORATORY Comment: Please note: ??Patients [...] Webber MD CHEMISTRY ORDERABLES Performing Organization Address City/[facility]/ZIP Code Phon e Number [address] POCT Glucose (07/11/2017 12:17 AM EST) athologist Signature POC Glucose 162 65 - 199 [facility] mg/dL [facility] LABORATORY Comment: Supplemental ranges: <140 mg/dL before meals <180 mg/dL all other times of the day Specimen Anatomical Collection Method Collection Time Receive d Time (Source) Location / / Volume Laterality Blood specimen 07/11/2017 12:17 7 (specimen) AM EST 12:17 AM EST Yuan Webber MD POINT OF CARE TEST ORDERABLE S Performing Organization Address City/[place] Hospital/ZIP Code Phon e Number [address] POCT Glucose (07/10/2017 8:47 PM EST) athologist Signature POC Glucose 191 65 - 199 [facility] LABORATORY Comment: Supplemental ranges: <140 mg/dL before meals <180 mg/dL all other times of the day Specimen Anatomical Collection Method Collection Time Receive d Time (Source) Location / / Volume Laterality Blood specimen 07/10/2017 8:47 PM 017 8:47 (specimen) EST PM EST Yuan Webber MD POINT OF CARE TEST ORDERABLE S Performing Organization Address City/[facility]/ZIP Code Phon e Number [address] POCT Glucose (07/10/2017 4:06 PM EST) athologist Signature POC Glucose 131 65 - 199 [place] mg/dL [facility] LABORATORY Comment: Supplemental ranges: <140 mg/dL before meals <180 mg/dL all other times of the day Specimen Anatomical Collection Method Collection Time Receive d Time (Source) Location / / Volume Laterality Blood specimen 07/10/2017 4:06 PM 017 4:06 (specimen) EST PM EST Yuan Webber MD POINT OF CARE TEST ORDERABLE S Performing Organization Address City/State/ZIP Code Phon e Number [address] POCT Glucose (07/10/2017 3:08 PM EST) athologist Signature POC Glucose 151 65 - 199 [place] mg/dL [facility] LABORATORY Comment: Supplemental ranges: <140 mg/dL before meals <180 mg/dL all other times of the day Specimen Anatomical Collection Method Collection Time Receive d Time (Source) Location / / Volume Laterality Blood specimen 07/10/2017 3:08 PM 017 3:08 (specimen) EST PM EST Yuan Webber MD POINT OF CARE TEST ORDERABLE S Performing Organization Address City/[facility]/[place] [address] POCT Glucose (07/10/2017 2:25 PM EST) athologist Signature POC Glucose 146 65 - 199 [place] mg/dL [facility] LABORATORY Comment: Supplemental ranges: <140 mg/dL before meals <180 mg/dL all other times of the day Specimen Anatomical Collection Method Collection Time Receive d Time (Source) Location / / Volume Laterality Blood specimen 07/10/2017 2:25 PM 017 2:25 (specimen) EST PM EST Yuan Webber MD POINT OF CARE TEST ORDERABLE S Performing Organization Address City/State/ZIP Code Phon e Number [address] POCT Glucose (07/10/2017 1:23 PM EST) athologist Signature POC Glucose 166 65 - 199 [facility] mg/dL [facility] LABORATORY Comment: Supplemental ranges: <140 mg/dL before meals <180 mg/dL all other times of the day Specimen Anatomical Collection Method Collection Time Receive d Time (Source) Location / / Volume Laterality Blood specimen 07/10/2017 1:23 PM 017 1:23 (specimen) EST PM EST Yuan Webber MD POINT OF CARE TEST ORDERABLE S Performing Organization Address City/State/ZIP Code Phon e Number [address] POCT Glucose (07/10/2017 11:52 AM EST) P athologist Signature POC Glucose 157 65 - 199 [place] mg/dL [facility] LABORATORY Comment: Supplemental ranges: <140 mg/dL before meals <180 mg/dL all other times of the day Specimen Anatomical Collection Method Collection Time Receive d Time (Source) Location / / Volume Laterality Blood specimen 07/10/2017 11:52 7 (specimen) AM EST 11:52 AM EST Yuan Webber MD POINT OF CARE TEST ORDERABLE S Performing Organization Address City/[facility]/ZIP Code Phon e Number [address] POCT Glucose (07/10/2017 11:01 AM EST) athologist Signature POC Glucose 158 65 - 199 [place] mg/dL [facility] LABORATORY Comment: Supplemental ranges: <140 mg/dL before meals <180 mg/dL all other times of the day Specimen Anatomical Collection Method Collection Time Receive d Time (Source) Location / / Volume Laterality Blood specimen 07/10/2017 11:01 7 (specimen) AM EST 11:01 AM EST Yuan Webber MD POINT OF CARE TEST ORDERABLE S Performing Organization Address City/State/[place] [address] POCT Glucose (07/10/2017 9:54 AM EST) P athologist Signature POC Glucose 160 65 - 199 [place] mg/dL [facility] LABORATORY Comment: Supplemental ranges: <140 mg/dL before meals <180 mg/dL all other times of the day Specimen Anatomical Collection Method Collection Time Receive d Time (Source) Location / / Volume Laterality Blood specimen 07/10/2017 9:54 AM 017 9:54 (specimen) EST AM EST Yuan Webber MD POINT OF CARE TEST ORDERABLE S Performing Organization Address City/State/ZIP Code Phon e Number [address] POCT Glucose (07/10/2017 8:58 AM EST) P athologist Signature POC Glucose 183 65 - 199 [place] mg/dL [facility] LABORATORY Comment: Supplemental ranges: <140 mg/dL before meals <180 mg/dL all other times of the day Specimen Anatomical Collection Method Collection Time Receive d Time (Source) Location / / Volume Laterality Blood specimen 07/10/2017 8:58 AM 017 8:58 (specimen) EST AM EST Yuan Webber MD POINT OF CARE TEST ORDERABLE S Performing Organization Address City/[facility]/ZIP Code Phon e Number [address] POCT Glucose (07/10/2017 8:01 AM EST) athologist Signature POC Glucose 173 65 - 199 [place] mg/dL [facility] LABORATORY Comment: Supplemental ranges: <140 mg/dL before meals <180 mg/dL all other times of the day Specimen Anatomical Collection Method Collection Time Receive d Time (Source) Location / / Volume Laterality Blood specimen 07/10/2017 8:01 AM 017 8:01 (specimen) EST AM EST Yuan Webber MD POINT OF CARE TEST ORDERABLE S Performing Organization Address City/[facility]/ZIP Code Phon e Number [address] POCT Glucose (07/10/2017 7:05 AM EST) athologist Signature POC Glucose 166 65 - 199 [place] mg/dL [facility] LABORATORY Comment: Supplemental ranges: <140 mg/dL before meals <180 mg/dL all other times of the day Specimen Anatomical Collection Method Collection Time Receive d Time (Source) Location / / Volume Laterality Blood specimen 07/10/2017 7:05 AM 017 7:05 (specimen) EST AM EST Yuan Webber MD POINT OF CARE TEST ORDERABLE S Performing Organization Address City/State/ZIP Code Phon e Number [address] POCT Glucose (07/10/2017 6:00 AM EST) P athologist Signature POC Glucose 162 65 - 199 [facility] LABORATORY Comment: Supplemental ranges: <140 mg/dL before meals <180 mg/dL all other times of the day Specimen Anatomical Collection Method Collection Time Receive d Time (Source) Location / / Volume Laterality Blood specimen 07/10/2017 6:00 AM 017 6:00 (specimen) EST AM EST Yuan Webber MD POINT OF CARE TEST ORDERABLE S Performing Organization Address City/State/ZIP Code Phon e Number [address] (ABNORMAL) Differential, Automated (07/10/2017 4:28 AM EST) Patholo gist Method Time Signature Neutrophils % 87.9 % [facility] LABORATORY Neutr Abs (ANC) 10.70 (H) 1.70 - [facility] 6.10 [facility] x10(3)/[facility] L LABORATORY Lymphocytes % 3.9 % [facility] LABORATORY Lymphocytes Abs 0.5 (L) 0.9 - 3.2 [facility] x10(3)/[facility] LABORATORY Monocytes % 7.0 % [facility] LABORATORY Monocyte Abs 0.8 0.3 - 0.9 [facility] x10(3)/[facility] LABORATORY Eosinophils % 0.3 % [facility] LABORATORY Eosinophils Abs 0.0 0.0 - 0.4 [facility] x10(3)/[facility] LABORATORY Basophils % 0.2 % [facility] LABORATORY Basophils Abs 0.0 0.0 - 0.1 [facility] x10(3)/[facility] LABORATORY Immature Gran % 0.70 % [facility] [...] Abs 0.08 (H) 0.00 - 0.04 x10(3)/[facility] LABORATORY Specimen Anatomical Collection Method Collection Time Receive d Time (Source) Location / / Volume Laterality Blood specimen 07/10/2017 4:28 AM 017 4:36 (specimen) EST AM EST Resulting Agency Comment Spec In Lab Yuan Webber MD HEMATOLOGY ORDERABLES Performing Organization Address City/State/[place] [address] (ABNORMAL) Hemogram (07/10/2017 4:28 AM EST) Analysis Performed At Patho logist Time Signature WBC 12.2 (H) 4.0 - 9.5 [facility] x10(3)/[facility] LABORATORY RBC 3.31 (L) 4.58 - [facility] 5.54 [facility] x10(6)/[facility] LABORATORY Hemoglobin 9.8 (L) 13.7 - [facility] 16.5 gm/dL [facility] LABORATORY Hematocrit 30.0 (L) 40.5 - [facility] 48.5 % [facility] LABORATORY MCV 90.6 82.9 - [facility] 93.1 [facility] LABORATORY MCH 29.6 27.5 - [facility] 32.[address] [facility] LABORATORY MCHC 32.7 32.0 - [facility] 35.7 gm/dL [facility] LABORATORY Platelets 135 (L) 145 - 357 [facility] x10(3)/[facility] LABORATORY RDWSD 50.8 (H) 36.0 - [facility] 45.0 [facility] LABORATORY RDWCV 15.4 (H) 11.4 - [facility] 13.8 % [facility] LABORATORY MPV 10.0 7.6 - 12.9 [facility] LABORATORY nRBC % Auto 0.0 % [facility] LABORATORY nRBC Abs Auto 0.000 0.000 - [facility] 0.000 [facility] x10(3)/[facility] LABORATORY Specimen Anatomical Collection Method Collection Time Receive d Time (Source) Location / / Volume Laterality Blood specimen 07/10/2017 4:28 AM 017 4:36 (specimen) EST AM EST Resulting Agency Comment Spec In Lab Yuan Webber MD HEMATOLOGY ORDERABLES Performing Organization Address City/State/[place] [address] (ABNORMAL) Basic Metabolic Panel (non-fasting) (07/10/2017 4:28 AM EST) athologist Signature Glucose Lvl 178 65 - 199 [facility] mg/dL [facility] LABORATORY Comment: Diabetes: >=200 mg/dL plus symp toms BUN 20 10 - 20 mg/dL [facility] LABORATORY Creatinine 1.19 0.80 - 1.50 [...] estions. Chloride 107 98 - 107 mmol/L [facility] LABORATORY CO2 21 (L) 22 - 31 mmol/L [facility] LABORATORY Anion Gap 15 5 - 15 mmol/L [facility] LABORATORY Calcium 7.4 (L) 8.5 - 10.5 mg/dL [facility] LABORATORY Estimated GFR 60 >=60 [facility] LABORATORY Comment: The reported eGFR should be multiplied b y 1.2 for patients. The MDRD is not an appropriate measure o f renal function for patients with body mass extremes or in patients with acute kidney failure. http://Glofox/DHnkdep http://Glofox/DHMCnkf Specimen Anatomical Collection Method Collection Time Receive d Time (Source) Location / / Volume Laterality Blood specimen 07/10/2017 4:28 AM 017 4:36 (specimen) EST AM EST Resulting Agency Comment Spec In Lab Yuan Webber MD CHEMISTRY ORDERABLES Performing Organization Address City/State/[place] [address] POCT Glucose (07/10/2017 4:26 AM EST) athologist Signature POC Glucose 176 65 - 199 [place] mg/dL [facility] LABORATORY Comment: Supplemental ranges: <140 mg/dL before meals <180 mg/dL all other times of the day Specimen Anatomical Collection Method Collection Time Receive d Time (Source) Location / / Volume Laterality Blood specimen 07/10/2017 4:26 AM 017 4:26 (specimen) EST AM EST Yuan Webber MD POINT OF CARE TEST ORDERABLE S Performing Organization Address City/State/[place] [address] (ABNORMAL) POCT Glucose (07/10/2017 3:06 AM EST) athologist Signature POC Glucose 204 (H) 65 - 199 [place] mg/dL [facility] LABORATORY Comment: Supplemental ranges: <140 mg/dL before meals <180 mg/dL all other times of the day Specimen Anatomical Collection Method Collection Time Receive d Time (Source) Location / / Volume Laterality Blood specimen 07/10/2017 3:06 AM 017 3:06 (specimen) EST AM EST Yuan Webber MD POINT OF CARE TEST ORDERABLE S Performing Organization Address City/State/[place] [address] (ABNORMAL) POCT Glucose (07/10/2017 2:10 AM EST) athologist Signature POC Glucose 203 (H) 65 - 199 [place] mg/dL [facility] LABORATORY Comment: Supplemental ranges: <140 mg/dL before meals <180 mg/dL all other times of the day Specimen Anatomical Collection Method Collection Time Receive d Time (Source) Location / / Volume Laterality Blood specimen 07/10/2017 2:10 AM 017 2:10 (specimen) EST AM EST Yuan Webber MD POINT OF CARE TEST ORDERABLE S Performing Organization Address City/State/ZIP Code Phon e Number [address] POCT Glucose (07/10/2017 1:09 AM EST) P athologist Signature POC Glucose 196 65 - 199 [place] mg/dL [facility] LABORATORY Comment: Supplemental ranges: <140 mg/dL before meals <180 mg/dL all other times of the day Specimen Anatomical Collection Method Collection Time Receive d Time (Source) Location / / Volume Laterality Blood specimen 07/10/2017 1:09 AM 017 1:09 (specimen) EST AM EST Yuan Webber MD POINT OF CARE TEST ORDERABLE S Performing Organization Address City/State/ZIP Code Phon e Number [address] POCT Glucose (07/10/2017 12:10 AM EST) P athologist Signature POC Glucose 173 65 - 199 [place] mg/dL [facility] LABORATORY Comment: Supplemental ranges: <140 mg/dL before meals <180 mg/dL all other times of the day Specimen Anatomical Collection Method Collection Time Receive d Time (Source) Location / / Volume Laterality Blood specimen 07/10/2017 12:10 7 (specimen) AM EST 12:10 AM EST Yuan Webber MD POINT OF CARE TEST ORDERABLE S Performing Organization Address City/State/ZIP Code Phon e Number [address] POCT Glucose (07/09/2017 11:01 PM EST) P athologist Signature POC Glucose 140 65 - 199 [facility] mg/dL [facility] LABORATORY Comment: Supplemental ranges: <140 mg/dL before meals <180 mg/dL all other times of the day Specimen Anatomical Collection Method Collection Time Receive d Time (Source) Location / / Volume Laterality Blood specimen 07/09/2017 11:01 7 (specimen) PM EST 11:01 PM EST Yuan Webber MD POINT OF CARE TEST ORDERABLE S Performing Organization Address City/State/ZIP Code Phon e Number [address] POCT Glucose (07/09/2017 10:05 PM EST) athologist Signature POC Glucose 144 65 - 199 [place] mg/dL [facility] LABORATORY Comment: Supplemental ranges: <140 mg/dL before meals <180 mg/dL all other times of the day Specimen Anatomical Collection Method Collection Time Receive d Time (Source) Location / / Volume Laterality Blood specimen 07/09/2017 10:05 7 (specimen) PM EST 10:05 PM EST Yuan Webber MD POINT OF CARE TEST ORDERABLE S Performing Organization Address City/State/ZIP Code Phon e Number [address] POCT Glucose (07/09/2017 9:31 PM EST) athologist Signature POC Glucose 121 65 - 199 [place] mg/dL [facility] LABORATORY Comment: Supplemental ranges: <140 mg/dL before meals <180 mg/dL all other times of the day Specimen Anatomical Collection Method Collection Time Receive d Time (Source) Location / / Volume Laterality Blood specimen 07/09/2017 9:31 PM 017 9:31 (specimen) EST PM EST Yuan Webber MD POINT OF CARE TEST ORDERABLE S Performing Organization Address City/State/[place] [address] POCT Glucose (07/09/2017 9:03 PM EST) athologist Signature POC Glucose 98 65 - 199 [place] mg/dL [facility] LABORATORY Comment: Supplemental ranges: <140 mg/dL before meals <180 mg/dL all other times of the day Specimen Anatomical Collection Method Collection Time Receive d Time (Source) Location / / Volume Laterality Blood specimen 07/09/2017 9:03 PM 017 9:03 (specimen) EST PM EST Yuan Webber MD POINT OF CARE TEST ORDERABLE S Performing Organization Address City/State/ZIP Code Phon e Number [address] POCT Glucose (07/09/2017 8:09 PM EST) athologist Signature POC Glucose 117 65 - 199 [place] mg/dL [facility] LABORATORY Comment: Supplemental ranges: <140 mg/dL before meals <180 mg/dL all other times of the day Specimen Anatomical Collection Method Collection Time Receive d Time (Source) Location / / Volume Laterality Blood specimen 07/09/2017 8:09 PM 017 8:09 (specimen) EST PM EST Yuan Webber MD POINT OF CARE TEST ORDERABLE S Performing Organization Address City/[facility]/ZIP Code Phon e Number [address] POCT Glucose (07/09/2017 5:40 PM EST) athologist Signature POC Glucose 155 65 - 199 [place] mg/dL [facility] LABORATORY Comment: Supplemental ranges: <140 mg/dL before meals <180 mg/dL all other times of the day Specimen Anatomical Collection Method Collection Time Receive d Time (Source) Location / / Volume Laterality Blood specimen 07/09/2017 5:40 PM 017 5:40 (specimen) EST PM EST Yuan Webber MD POINT OF CARE TEST ORDERABLE S Performing Organization Address City/[facility]/ZIP Code Phon e Number [address] POCT Glucose (07/09/2017 4:24 PM EST) athologist Signature POC Glucose 164 65 - 199 [place] mg/dL [facility] LABORATORY Comment: Supplemental ranges: <140 mg/dL before meals <180 mg/dL all other times of the day Specimen Anatomical Collection Method Collection Time Receive d Time (Source) Location / / Volume Laterality Blood specimen 07/09/2017 4:24 PM 017 4:24 (specimen) EST PM EST Yuan Webber MD POINT OF CARE TEST ORDERABLE S Performing Organization Address City/State/[place] [address] POCT Glucose (07/09/2017 3:19 PM EST) athologist Signature POC Glucose 166 65 - 199 [place] mg/dL [facility] LABORATORY Comment: Supplemental ranges: <140 mg/dL before meals <180 mg/dL all other times of the day Specimen Anatomical Collection Method Collection Time Receive d Time (Source) Location / / Volume Laterality Blood specimen 07/09/2017 3:19 PM 017 3:19 (specimen) EST PM EST Yuan Webber MD POINT OF CARE TEST ORDERABLE S Performing Organization Address City/[facility]/ZIP Code Phon e Number [address] POCT Glucose (07/09/2017 2:26 PM EST) athologist Signature POC Glucose 179 65 - 199 [place] mg/dL [facility] LABORATORY Comment: Supplemental ranges: <140 mg/dL before meals <180 mg/dL all other times of the day Specimen Anatomical Collection Method Collection Time Receive d Time (Source) Location / / Volume Laterality Blood specimen 07/09/2017 2:26 PM 017 2:26 (specimen) EST PM EST Yuan Webber MD POINT OF CARE TEST ORDERABLE S Performing Organization Address City/[facility]/[place] [address] (ABNORMAL) POCT Glucose (07/09/2017 1:29 PM EST) athologist Signature POC Glucose 210 (H) 65 - 199 [place] mg/dL [facility] LABORATORY Comment: Supplemental ranges: <140 mg/dL before meals <180 mg/dL all other times of the day Specimen Anatomical Collection Method Collection Time Receive d Time (Source) Location / / Volume Laterality Blood specimen 07/09/2017 1:29 PM 017 1:29 (specimen) EST PM EST Yuan Webber MD POINT OF CARE TEST ORDERABLE S Performing Organization Address City/State/ZIP Code Phon e Number [address] POCT Glucose (07/09/2017 12:20 PM EST) P athologist Signature POC Glucose 172 65 - 199 [facility] LABORATORY Comment: Supplemental ranges: <140 mg/dL before meals <180 mg/dL all other times of the day Specimen Anatomical Collection Method Collection Time Receive d Time (Source) Location / / Volume Laterality Blood specimen 07/09/2017 12:20 7 (specimen) PM EST 12:20 PM EST Yuan Webber MD POINT OF CARE TEST ORDERABLE S Performing Organization Address City/State/ZIP Code Phon e Number [address] POCT Glucose (07/09/2017 11:24 AM EST) athologist Signature POC Glucose 156 65 - 199 [facility] LABORATORY Comment: Supplemental ranges: <140 mg/dL before meals <180 mg/dL all other times of the day Specimen Anatomical Collection Method Collection Time Receive d Time (Source) Location / / Volume Laterality Blood specimen 07/09/2017 11:24 7 (specimen) AM EST 11:24 AM EST Yuan Webber MD POINT OF CARE TEST ORDERABLE S Performing Organization Address City/State/ZIP Code Phon e Number [address] POCT Glucose (07/09/2017 11:11 AM EST) athologist Signature POC Glucose 172 65 - 199 [facility] mg/dL [facility] LABORATORY Comment: Supplemental ranges: <140 mg/dL before meals <180 mg/dL all other times of the day Specimen Anatomical Collection Method Collection Time Receive d Time (Source) Location / / Volume Laterality Blood specimen 07/09/2017 11:11 7 (specimen) AM EST 11:11 AM EST Yuan Webber MD POINT OF CARE TEST ORDERABLE S Performing Organization Address City/State/ZIP Code Phon e Number [address] POCT Glucose (07/09/2017 10:08 AM EST) athologist Signature POC Glucose 176 65 - 199 [facility] LABORATORY Comment: Supplemental ranges: <140 mg/dL before meals <180 mg/dL all other times of the day Specimen Anatomical Collection Method Collection Time Receive d Time (Source) Location / / Volume Laterality Blood specimen 07/09/2017 10:08 7 (specimen) AM EST 10:08 AM EST Yuan Webber MD POINT OF CARE TEST ORDERABLE S Performing Organization Address City/State/ZIP Code Phon e Number [address] POCT Glucose (07/09/2017 8:02 AM EST) athologist Signature POC Glucose 178 65 - 199 [facility] LABORATORY Comment: Supplemental ranges: <140 mg/dL before meals <180 mg/dL all other times of the day Specimen Anatomical Collection Method Collection Time Receive d Time (Source) Location / / Volume Laterality Blood specimen 07/09/2017 8:02 AM 017 8:02 (specimen) EST AM EST Yuan Webber MD POINT OF CARE TEST ORDERABLE S Performing Organization Address City/State/ZIP Code Phon e Number [address] (ABNORMAL) BLOOD GAS 2 ARTERIAL (07/09/2017 5:37 AM EST) Analysis Performed At Patho logist Time Signature pH Art 7.36 7.35 - [facility] 7.[address] [facility] LABORATORY pCO2 Art 38 35 - 45 [facility] mmHg [facility] LABORATORY pO2 Art 79 (L) 85 - 104 [facility] mmHg [facility] LABORATORY HCO3 Art 20.9 20.0 - [facility] 26.0 [facility] mmol/L [facility] LABORATORY BE Art -4.6 (L) -3.0 - 3.0 [facility] mmol/L [facility] [facility] Hgb Blood Gas 10.5 (L) 13.7 - [facility] 16.5 gm/dL [facility] O2HB Art 93.8 (L) 94.0 - [facility] 97.0 % [facility] COHB Art 0.3 % [facility] Comment: Nonsmokers: 0.5-1.5% COHB Smokers: Variable, but usually less than 10% Toxic: 20-30% COHB Lethal: Greater than 60% COHB METHB Art 0.6 <=1.5 % [facility] Na Whole Blood 141 135 - 145 mmol/L [facility] K Whole Blood 4.5 3.5 - 5.0 mmol/L [facility] Comment: Please note: Patients with WBC >100,000 may have falsely elevated Potassium levels. Contact the Clinical Chemistry L aboratory if there are any questions. ICa Whole Blood 1.01 (L) 1.15 - 1.33 mmol/L [facility] Comment: Note: ??Total bilirubin higher than 20 m g/dL may lead to falsely low ionized calcium. CL Whole Blood 113 (H) 98 - 107 mmol/L [facility] Gluc Whole Bld 175 65 - 199 mg/dL [facility] Comment: Diabetes: >=200 mg/dL plus symp toms. Lactate WB 1.0 0.5 - 2.2 mmol/L [facility] FIO2 Art 40 % [facility] PF Ratio Art 198 [facility] Specimen Anatomical Collection Method Collection Time Receive d Time (Source) Location / / Volume Laterality Blood specimen 07/09/2017 5:37 AM 017 5:37 (specimen) EST AM EST Yuan Webber MD CHEMISTRY ORDERABLES Performing Organization Address City/State/[place] [address] POCT Glucose (07/09/2017 3:27 AM EST) P athologist Signature POC Glucose 192 65 - 199 [facility] mg/dL [facility] Comment: Supplemental ranges: <140 mg/dL before meals <180 mg/dL all other times of the day Specimen Anatomical Collection Method Collection Time Receive d Time (Source) Location / / Volume Laterality Blood specimen 07/09/2017 3:27 AM 017 3:27 (specimen) EST AM EST Yuan Webber MD POINT OF CARE TEST ORDERABLE S Performing Organization Address City/State/[place] [address] (ABNORMAL) Basic Metabolic Panel (non-fasting) (07/09/2017 2:30 AM EST) athologist Signature Glucose Lvl 179 65 - 199 [facility] mg/dL [facility] Comment: Diabetes: >=200 mg/dL plus symp toms BUN 17 10 - 20 mg/dL [facility] Creatinine 1.34 0.80 - 1.50 [...] Chloride 111 (H) 98 - 107 mmol/L [facility] CO2 21 (L) 22 - 31 mmol/L [facility] Anion Gap 12 5 - 15 mmol/L [facility] Calcium 7.1 (L) 8.5 - 10.5 mg/dL [facility] Comment: result rechecked-[id number] Estimated GFR 53 (L) >=60 [facility] Comment: The reported eGFR should be multiplied b y 1.2 for patients. The MDRD is not an appropriate measure o f renal function for patients with body mass extremes or in patients with acute kidney failure. http://Glofox/DHnkdep http://Glofox/DHMCnkf Specimen Anatomical Collection Method Collection Time Receive d Time (Source) Location / / Volume Laterality Blood specimen Venous Draw / 07/09/2017 2:30 AM 2016 2:42 (specimen) Unknown EST AM EST Resulting Agency Comment Spec In Lab Yuan Webber MD CHEMISTRY ORDERABLES Performing Organization Address City/[facility]/[place] [address] (ABNORMAL) Potassium (07/09/2017 2:30 AM EST) P athologist Signature Potassium 5.1 (H) 3.5 - 5.0 [place] mmol/L [facility] Comment: Please note: ??Patients [...] Webber MD CHEMISTRY ORDERABLES Performing Organization Address City/[facility] [place] [address] (ABNORMAL) Hemogram (07/09/2017 2:30 AM EST) Analysis Performed At Patho logist Time Signature WBC 12.5 (H) 4.0 - 9.5 [place] x10(3)/[facility] LABORATORY RBC 3.38 (L) 4.58 - [place] 5.54 [facility] x10(6)/[facility] LABORATORY Hemoglobin 10.1 (L) 13.7 - [place] 16.5 gm/dL [facility] Hematocrit 30.3 (L) 40.5 - [place] 48.5 % [facility] MCV 89.6 82.9 - [place] 93.[address] [facility] MCH 29.9 27.5 - [place] 32.[address] [facility] MCHC 33.3 32.0 - [place] 35.7 gm/dL [facility] Platelets 127 (L) 145 - 357 [place] x10(3)/[facility] LABORATORY RDWSD 49.3 (H) 36.0 - [place] 45.0 [facility] LABORATORY RDWCV 15.2 (H) 11.4 - [facility] SU 13.8 % [facility]ORY MPV 9.9 7.6 - 12.9 [facility] nRBC % Auto 0.0 % [facility] nRBC Abs Auto 0.000 0.000 - [place] 0.000 [facility] x10(3)/[facility] LABORATORY Specimen Anatomical Collection Method Collection Time Receive d Time (Source) Location / / Volume Laterality Blood specimen 07/09/2017 2:30 AM 017 2:41 (specimen) EST AM EST Resulting Agency Comment Spec In Lab Yuan Webber MD HEMATOLOGY ORDERABLES Performing Organization Address City/[facility]/ZIP [facility] Phon e Number [address] POCT Glucose (07/09/2017 2:10 AM EST) athologist Signature POC Glucose 169 65 - 199 [facility] mg/dL [facility] Comment: Supplemental ranges: <140 mg/dL before meals <180 mg/dL all other times of the day Specimen Anatomical Collection Method Collection Time Receive d Time (Source) Location / / Volume Laterality Blood specimen 07/09/2017 2:10 AM 017 2:10 (specimen) EST AM EST Yuan Webber MD POINT OF CARE TEST ORDERABLE S Performing Organization Address City/State/ZIP Code Phon e Number [address] POCT Glucose (07/09/2017 1:01 AM EST) P athologist Signature POC Glucose 173 65 - 199 [facility] mg/dL [facility] Comment: Supplemental ranges: <140 mg/dL before meals <180 mg/dL all other times of the day Specimen Anatomical Collection Method Collection Time Receive d Time (Source) Location / / Volume Laterality Blood specimen 07/09/2017 1:01 AM 017 1:01 (specimen) EST AM EST Yuan Webber MD POINT OF CARE TEST ORDERABLE S Performing Organization Address City/[facility]/[place] [address] Blood culture (07/09/2017 12:40 AM EST) [facility] gist Method Time Signature Blood Culture No growth [place] at [address] [facility]ORY Specimen Anatomical Collection Method Collection Time Receive d Time (Source) Location / / Volume Laterality Blood specimen STRUCTURE OF RIGHT 07/09/2017 12:40 3:58 (specimen) UPPER LIMB / AM EST AM EST Unknown Resulting Agency Comment Spec In Lab Yuan Webber MD MICROBIOLOGY - BLOOD ORDERAB LES Performing Organization Address City/[facility]/[place] [address] Blood culture (07/09/2017 12:30 AM EST) [facility] gist Method Time Signature Blood Culture No growth [place] at [address] [facility] Specimen Anatomical Collection Method Collection Time Receive d Time (Source) Location / / Volume Laterality Blood specimen STRUCTURE OF LEFT 07/09/2017 12:30 1211/2016 3:59 (specimen) UPPER LIMB / AM EST AM EST Unknown Resulting Agency Comment Spec In Lab Yuan Webber MD MICROBIOLOGY - BLOOD ORDERAB LES Performing Organization Address City/[facility]/[place] [address] (ABNORMAL) Urinalysis Microscopic Exam (07/09/2017 12:05 AM EST) Analysis Performed At Patho logist Time Signature RBC UA 32 (H) 0 - 3 /HPF [facility] WBC UA 5 (H) 0 - 3 /HPF [facility] Squam Epith UA <1 <=4 /HPF [facility] Hyaline Cast 17 (H) 0 - 2 /LPF [facility] Gran Cast UA 1 (H) <=0 /LPF [facility] Uric Ac Bianca Rare (A) None /HPF [facility] Specimen (Source) Anatomical Collection Method Collection Time Re ceived Time Location / / Volume Laterality Urine specimen 07/09/2017 12: 7 obtained via AM EST 12:39 AM EST indwelling urinary catheter (specimen) Resulting Agency Comment Spec In Lab Yuan Webber MD URINE ORDERABLES Performing Organization Address City/[facility]/ZIP Code Phon e Number [address] (ABNORMAL) Urinalysis with reflex Culture (07/09/2017 12:05 AM EST) [facility] Method Time Signature Glucose UA Negative Negative [facility] mg/dL [facility]ORY Protein UA 30 (A) Negative [facility] mg/dL [facility]ORY Bilirubin UA Negative Negative [facility] mg/dL [facility] Comment: Clinical correlation required [...] HOSPITAL LABORATORY Ketones UA Negative Negative mg/dL [facility] Nitrite UA Negative Negative [facility] Leukocytes UA Negative Negative mcL [facility] Appearance UA Hazy (A) Clear [facility] Spec [place] UA 1.025 1.002 - 1.030 [facility] Color UA Yellow Yellow [facility] Culture Reflexed No [facility] Specimen (Source) Anatomical Collection Method Collection Time Re ceived Time Location / / Volume Laterality Urine specimen 07/09/2017 12:05 7 obtained via AM EST 12:39 AM EST indwelling urinary catheter (specimen) Resulting Agency Comment Spec In Lab Yuan Webber MD URINE ORDERABLES Performing Organization Address City/[facility]/ZIP Code Phon e Number [address] POCT Glucose (07/08/2017 11:01 PM EST) athologist Signature POC Glucose 191 65 - 199 [facility] Comment: Supplemental ranges: <140 mg/dL before meals <180 mg/dL all other times of the day Specimen Anatomical Collection Method Collection Time Receive d Time (Source) Location / / Volume Laterality Blood specimen 07/08/2017 11:01 7 (specimen) PM EST 11:01 PM EST Yuan Webber MD POINT OF CARE TEST ORDERABLE S Performing Organization Address City/State/ZIP Code Phon e Number [address] POCT Glucose (07/08/2017 10:04 PM EST) athologist Signature POC Glucose 198 65 - 199 [facility] Comment: Supplemental ranges: <140 mg/dL before meals <180 mg/dL all other times of the day Specimen Anatomical Collection Method Collection Time Receive d Time (Source) Location / / Volume Laterality Blood specimen 07/08/2017 10:04 7 (specimen) PM EST 10:04 PM EST Yuan Webber MD POINT OF CARE TEST ORDERABLE S Performing Organization Address City/State/[place] [address] Prepare Albumin 5% in 250 mL (07/08/2017 8:49 PM EST) athologist Signature Dispensed? Yes [facility] Specimen Anatomical Collection Method Collection Time Receive d Time (Source) Location / / Volume Laterality Blood specimen No Charge / 07/08/2017 8:49 PM 017 8:51 (specimen) Unknown EST PM EST Resulting Agency Comment Spec In Lab [facility] ORDERABLES Performing Organization Address City/State/[place] [address] POCT Glucose (07/08/2017 8:28 PM EST) athologist Signature POC Glucose 195 65 - 199 [facility] Comment: Supplemental ranges: <140 mg/dL before meals <180 mg/dL all other times of the day Specimen Anatomical Collection Method Collection Time Receive d Time (Source) Location / / Volume Laterality Blood specimen 07/08/2017 8:28 PM 017 8:28 (specimen) EST PM EST Yuan Webber MD POINT OF CARE TEST ORDERABLE S Performing Organization Address City/State/[place] [address] (ABNORMAL) POCT Glucose (07/08/2017 7:13 PM EST) athologist Signature POC Glucose 220 (H) 65 - 199 [facility] mg/[facility] Comment: Supplemental ranges: <140 mg/dL before meals <180 mg/dL all other times of the day Specimen Anatomical Collection Method Collection Time Receive d Time (Source) Location / / Volume Laterality Blood specimen 07/08/2017 7:13 PM 017 7:13 (specimen) EST PM EST Yuan Webber MD POINT OF CARE TEST ORDERABLE S Performing Organization Address City/State/[place] [address] POCT Glucose (07/08/2017 5:04 PM EST) athologist Signature POC Glucose 147 65 - 199 [facility] mg/[facility] Comment: Supplemental ranges: <140 mg/dL before meals <180 mg/dL all other times of the day Specimen Anatomical Collection Method Collection Time Receive d Time (Source) Location / / Volume Laterality Blood specimen 07/08/2017 5:04 PM 017 5:04 (specimen) EST PM EST Yuan Webber MD POINT OF CARE TEST ORDERABLE S Performing Organization Address City/State/[place] [address] (ABNORMAL) BLOOD GAS 2 ARTERIAL (07/08/2017 4:13 PM EST) Analysis Performed At Patho logist [place] Signature pH Art 7.38 7.35 - [facility] 7.[address] [facility] LABORATORY pCO2 Art 36 35 - 45 [facility] mmHg [facility] LABORATORY pO2 Art 91 85 - 104 [facility] LABORATORY HCO3 Art 20.9 20.0 - [facility] 26.0 [facility] mmol/L [facility] LABORATORY BE Art -4.2 (L) -3.0 - 3.0 [facility] mmol/L [facility] LABORATORY Hgb Blood Gas 11.7 (L) 13.7 - [facility] 16.5 gm/dL [facility] O2HB Art 95.1 94.0 - [facility] 97.0 % [facility]ATORY COHB Art 0.6 % [facility] Comment: Nonsmokers: 0.5-1.5% COHB Smokers: Variable, but usually less than 10% Toxic: 20-30% COHB Lethal: Greater than 60% COHB METHB Art 0.6 <=1.5 % [facility] Na Whole Blood 139 135 - 145 mmol/L [facility] K Whole Blood 4.2 3.5 - 5.0 mmol/L [facility] Comment: Please note: Patients with WBC >100,000 may have falsely elevated Potassium levels. Contact the Clinical Chemistry L aboratory if there are any questions. ICa Whole Blood 1.05 (L) 1.15 - 1.33 mmol/L [facility] Comment: Note: ??Total bilirubin higher than 20 m g/dL may lead to falsely low ionized calcium. CL Whole Blood 110 (H) 98 - 107 mmol/L [facility] Gluc Whole Bld 155 65 - 199 mg/dL [facility] Comment: Diabetes: >=200 mg/dL plus symp toms. Lactate WB 1.4 0.5 - 2.2 mmol/L [facility] FIO2 Art 40 % [facility] PF Ratio Art 228 [facility] LABORATORY Specimen Anatomical Collection Method Collection Time Receive d Time (Source) Location / / Volume Laterality Blood specimen 07/08/2017 4:13 PM 017 4:13 (specimen) EST PM EST Yuan Webber MD CHEMISTRY ORDERABLES Performing Organization Address City/State/ZIP Code Phon e Number [address] POCT Glucose (07/08/2017 4:01 PM EST) athologist Signature POC Glucose 148 65 - 199 [place] mg/dL [facility]ORY Comment: Supplemental ranges: <140 mg/dL before meals <180 mg/dL all other times of the day Specimen Anatomical Collection Method Collection Time Receive d Time (Source) Location / / Volume Laterality Blood specimen 07/08/2017 4:01 PM 017 4:01 (specimen) EST PM EST Yuan Webber MD POINT OF CARE TEST ORDERABLE S Performing Organization Address City/State/ZIP Code Phon e Number [address] POCT Glucose (07/08/2017 3:21 PM EST) athologist Signature POC Glucose 118 65 - 199 [place] mg/dL [facility]ORY Comment: Supplemental ranges: <140 mg/dL before meals <180 mg/dL all other times of the day Specimen Anatomical Collection Method Collection Time Receive d Time (Source) Location / / Volume Laterality Blood specimen 07/08/2017 3:21 PM 017 3:21 (specimen) EST PM EST Yuan Webber MD POINT OF CARE TEST ORDERABLE S Performing Organization Address City/State/ZIP Code Phon e Number [address] POCT Glucose (07/08/2017 2:01 PM EST) athologist Signature POC Glucose 129 65 - 199 [facility] SU mg/dL [facility]ORATORY Comment: Supplemental ranges: <140 mg/dL before meals <180 mg/dL all other times of the day Specimen Anatomical Collection Method Collection Time Receive d Time (Source) Location / / Volume Laterality Blood specimen 07/08/2017 2:01 PM 017 2:01 (specimen) EST PM EST Yuan Webber MD POINT OF CARE TEST ORDERABLE S Performing Organization Address City/[facility]/[place] [address] POCT Glucose (07/08/2017 11:53 AM EST) athologist Signature POC Glucose 156 65 - 199 [place] mg/dL [facility]ORY Comment: Supplemental ranges: <140 mg/dL before meals <180 mg/dL all other times of the day Specimen Anatomical Collection Method Collection Time Receive d Time (Source) Location / / Volume Laterality Blood specimen 07/08/2017 11:53 7 (specimen) AM EST 11:53 AM EST Yuan Webber MD POINT OF CARE TEST ORDERABLE S Performing Organization Address [facility]/ZIP Code Phon e Number [address] POCT Glucose (07/08/2017 11:04 AM EST) athologist Signature POC Glucose 181 65 - 199 [place] mg/dL [facility]ATORY Comment: Supplemental ranges: <140 mg/dL before meals <180 mg/dL all other times of the day Specimen Anatomical Collection Method Collection Time Receive d Time (Source) Location / / Volume Laterality Blood specimen 07/08/2017 11:04 7 (specimen) AM EST 11:04 AM EST Yuan Webber MD POINT OF CARE TEST ORDERABLE S Performing Organization Address City/[facility]/[place] [address] (ABNORMAL) POCT Glucose (07/08/2017 9:24 AM EST) athologist Signature POC Glucose 203 (H) 65 - 199 [place] mg/dL [facility]ORY Comment: Supplemental ranges: <140 mg/dL before meals <180 mg/dL all other times of the day Specimen Anatomical Collection Method Collection Time Receive d Time (Source) Location / / Volume Laterality Blood specimen 07/08/2017 9:24 AM 017 9:24 (specimen) EST AM EST Yuan Webber MD POINT OF CARE TEST ORDERABLE S Performing Organization Address City/State/[place] [address] APTT (07/08/2017 8:40 AM EST) P athologist Signature PTT 33 25 - 35 sec [facility] Comment: The recommended therapeutic range for fu ll dose, unfractionated heparin at [facility] is 80 ? 114 seconds. The [...] Webber MD HEMATOLOGY ORDERABLES Performing Organization Address [facility] [place] [address] (ABNORMAL) Prothrombin Time (07/08/2017 8:40 AM EST) athologist Signature PT 15.6 (H) 11.8 - [...] Webber MD HEMATOLOGY ORDERABLES Performing Organization Address [facility] [place] [address] (ABNORMAL) POCT Glucose (07/08/2017 7:38 AM EST) athologist Signature POC Glucose 232 (H) 65 - 199 [facility]ORY Comment: Supplemental ranges: <140 mg/dL before meals <180 mg/dL all other times of the day Specimen Anatomical Collection Method Collection Time Receive d Time (Source) Location / / Volume Laterality Blood specimen 07/08/2017 7:38 AM 017 7:38 (specimen) EST AM EST Yuan Webber MD POINT OF CARE TEST ORDERABLE S Performing Organization Address City/State/[place] [address] (ABNORMAL) POCT Glucose (07/08/2017 7:07 AM EST) athologist Signature POC Glucose 234 (H) 65 - 199 [facility] mg/dL [facility]ORY Comment: Supplemental ranges: <140 mg/dL before meals <180 mg/dL all other times of the day Specimen Anatomical Collection Method Collection Time Receive d Time (Source) Location / / Volume Laterality Blood specimen 07/08/2017 7:07 AM 017 7:07 (specimen) EST AM EST Yuan Webber MD POINT OF CARE TEST ORDERABLE S Performing Organization Address City/State/[place] [address] (ABNORMAL) POCT Glucose (07/08/2017 6:04 AM EST) athologist Signature POC Glucose 225 (H) 65 - 199 [facility] mg/dL [facility] Comment: Supplemental ranges: <140 mg/dL before meals <180 mg/dL all other times of the day Specimen Anatomical Collection Method Collection Time Receive d Time (Source) Location / / Volume Laterality Blood specimen 07/08/2017 6:04 AM 017 6:04 (specimen) EST AM EST Yuan Webber MD POINT OF CARE TEST ORDERABLE S Performing Organization Address City/State/[place] [address] (ABNORMAL) POCT Glucose (07/08/2017 5:31 AM EST) athologist Signature POC Glucose 216 (H) 65 - 199 [facility] mg/dL [facility]ORY Comment: Supplemental ranges: <140 mg/dL before meals <180 mg/dL all other times of the day Specimen Anatomical Collection Method Collection Time Receive d Time (Source) Location / / Volume Laterality Blood specimen 07/08/2017 5:31 AM 017 5:31 (specimen) EST AM EST Yuan Webber MD POINT OF CARE TEST ORDERABLE S Performing Organization Address City/State/[place] [address] (ABNORMAL) POCT Glucose (07/08/2017 4:52 AM EST) athologist Signature POC Glucose 257 (H) 65 - 199 [facility]ORY Comment: Supplemental ranges: <140 mg/dL before meals <180 mg/dL all other times of the day Specimen Anatomical Collection Method Collection Time Receive d Time (Source) Location / / Volume Laterality Blood specimen 07/08/2017 4:52 AM 017 4:52 (specimen) EST AM EST Daphne Shahid MD POINT OF CARE TEST ORDERABLE S Performing Organization Address City/[facility]/[place] [address] (ABNORMAL) BLOOD GAS 2 ARTERIAL (07/08/2017 4:04 AM EST) Analysis Performed At Patho logist Time Signature pH Art 7.30 (L) 7.35 - [facility] 7.[address] [facility] LABORATORY pCO2 Art 41 35 - 45 [facility] mmHg [facility] LABORATORY pO2 Art 83 (L) 85 - 104 [facility] [facility] mmHg [facility] LABORATORY HCO3 Art 19.6 (L) 20.0 - [facility] 26.0 [facility] mmol/L [facility] BE Art -6.8 (L) -3.0 - 3.0 [facility] mmol/L [facility]OR[facility]ORY Hgb Blood Gas 12.2 (L) 13.7 - [facility] 16.5 gm/dL [facility] LABORATORY O2HB Art 93.5 (L) 94.0 - [facility] 97.0 % [facility]OR[facility]ORY COHB Art 0.4 % [facility] Comment: Nonsmokers: 0.5-1.5% COHB Smokers: Variable, but usually less than 10% Toxic: 20-30% COHB Lethal: Greater than 60% COHB METHB Art 0.8 <=1.5 % [facility] Na Whole Blood 138 135 - 145 mmol/L [facility] K Whole Blood 4.4 3.5 - 5.0 mmol/L [facility] Comment: Please note: Patients with WBC >100,000 may have falsely elevated Potassium levels. Contact the Clinical Chemistry L aboratory if there are any questions. ICa Whole Blood 1.05 (L) 1.15 - 1.33 mmol/L [facility] Comment: Note: ??Total bilirubin higher than 20 m g/dL may lead to falsely low ionized calcium. CL Whole Blood 107 98 - 107 mmol/L [facility] Gluc Whole Bld 274 (H) 65 - 199 mg/dL [facility] Comment: Diabetes: >=200 mg/dL plus symp toms. Lactate WB 4.4 (Critical) 0.5 - 2.2 mmol/L [facility] Comment: Noted by musical instruments assembler. FIO2 Art 40 % [facility] PF Ratio Art 208 [facility] Specimen Anatomical Collection Method Collection Time Receive d Time (Source) Location / / Volume Laterality Blood specimen 07/08/2017 4:04 AM 017 4:04 (specimen) EST AM EST Daphne Shahid MD CHEMISTRY ORDERABLES Performing Organization Address City/State/[place] [address] Scan, Peripheral Blood (07/08/2017 4:00 AM EST) P athologist Signature Plat Estimate Normal [facility] RBC Morphology Normal [facility] Specimen Anatomical Collection Method Collection Time Receive d Time (Source) Location / / Volume Laterality Blood specimen 07/08/2017 4:00 AM 017 4:09 (specimen) EST AM EST Resulting Agency Comment Spec In Lab Yuan Webber MD HEMATOLOGY ORDERABLES Performing Organization Address City/State/[place] [address] (ABNORMAL) Differential, Automated (07/08/2017 4:00 AM EST) [facility] Method Time Signature Neutrophils % 85.4 % [facility] Neutr Abs (ANC) 16.07 (H) 1.70 - [facility] 6.10 [facility] x10(3)/[facility] L LABORATORY Lymphocytes % 3.5 % [facility] Lymphocytes Abs 0.6 (L) 0.9 - 3.2 [facility] x10(3)/[facility] LABORATORY Monocytes % 10.4 % [facility] Monocyte Abs 2.0 (H) 0.3 - 0.9 [facility] x10(3)/[facility] LABORATORY Eosinophils % 0.0 % [facility] Eosinophils Abs 0.0 0.0 - 0.4 [facility] x10(3)/[facility] LABORATORY Basophils % 0.1 % [facility] Basophils Abs 0.0 0.0 - 0.1 [facility] x10(3)/[facility] LABORATORY Immature Gran % 0.60 % [facility] [...] Abs 0.12 (H) 0.00 - 0.04 x10(3)/[facility] LABORATORY Specimen Anatomical Collection Method Collection Time Receive d Time (Source) Location / / Volume Laterality Blood specimen 07/08/2017 4:00 AM 017 4:09 (specimen) EST AM EST Resulting Agency Comment Spec In Lab Yuan Webber MD HEMATOLOGY ORDERABLES Performing Organization Address City/State/[place] [address] (ABNORMAL) Hemogram (07/08/2017 4:00 AM EST) Analysis Performed At Patho logist Time Signature WBC 18.8 (H) 4.0 - 9.5 [facility] LABORATORY RBC 4.00 (L) 4.58 - [place] 5.54 [facility] x10(6)/[facility] LABORATORY Hemoglobin 11.9 (L) 13.7 - [facility] 16.5 gm/dL [facility]ATORY Hematocrit 35.9 (L) 40.5 - [facility] 48.5 % [facility]ORATORY MCV 89.8 82.9 - [facility] 93.1 [facility] LABORATORY MCH 29.8 27.5 - [place] 32.[address] [facility] LABORATORY MCHC 33.1 32.0 - [place] 35.7 gm/dL [facility] LABORATORY Platelets 232 145 - 357 [facility] x10(3)/[facility] LABORATORY RDWSD 47.6 (H) 36.0 - [facility] SU 45.0 [facility] LABORATORY RDWCV 14.5 (H) 11.4 - [facility] SU 13.8 % [facility] LABORATORY MPV 9.5 7.6 - 12.9 [place] [facility] LABORATORY nRBC % Auto 0.0 % [facility] nRBC Abs Auto 0.000 0.000 - [place] 0.000 [facility] x10(3)/[facility] LABORATORY Specimen Anatomical Collection Method Collection Time Receive d Time (Source) Location / / Volume Laterality Blood specimen 07/08/2017 4:00 AM 017 4:09 (specimen) EST AM EST Resulting Agency Comment Spec In Lab Yuan Webber MD HEMATOLOGY ORDERABLES Performing Organization Address City/State/[place] [address] (ABNORMAL) Electrolytes panel (07/08/2017 4:00 AM EST) P athologist Signature Sodium 139 135 - 145 [facility] mmol/L [facility] LABORATORY Potassium 4.7 3.5 - 5.0 [facility] mmol/L [facility]ATORY Comment: result rechecked-JLK Please [...] 5 - 15 mmol/L [facility] Specimen Anatomical Collection Method Collection Time Receive d Time (Source) Location / / Volume Laterality Blood specimen 07/08/2017 4:00 AM 017 4:10 (specimen) EST AM EST Resulting Agency Comment Spec In Lab Yuan Webber MD CHEMISTRY ORDERABLES Performing Organization Address City/State/[place] [address] (ABNORMAL) Cardiac Enzymes (LEB/CGP) (07/08/2017 4:00 AM EST) athologist [facility] Troponin-T 1.88 (H) 0.00 - [facility] 0.00 ng/mL [facility]ATORY Comment: The 99th percentile [...] additional sample may be indicated. Reference: Third [place] Definition of Myocardial Infarction. Journal of the [place] [employer] 2012;60:1581-98 CK, Total 413 (H) 0 - 200 unit/L [facility] Comment: result rechecked-JLK Specimen Anatomical Collection Method Collection Time Receive d Time (Source) Location / / Volume Laterality Blood specimen 07/08/2017 4:00 AM 017 4:09 (specimen) EST AM EST Resulting Agency Comment Spec In Lab Yuan Webber MD CHEMISTRY ORDERABLES Performing Organization Address City/State/[place] [address] (ABNORMAL) Glucose, fasting (07/08/2017 4:00 AM EST) athologist Signature Glucose 287 (H) 65 - 99 [facility] Fasting mg/dL [facility]ORY Comment: ?Fasting* Glucose Interpretive [...] of Diabetes Mellitus, Position Statement from the [place] [employer]. ??Diabete s Care, Volume 33, Supplement 1, Jul 2009 Specimen Anatomical Collection Method Collection Time Receive d Time (Source) Location / / Volume Laterality Blood specimen 07/08/2017 4:00 AM 017 4:09 (specimen) EST AM EST Resulting Agency Comment Spec In Lab Yuan Webber MD CHEMISTRY ORDERABLES Performing Organization Address City/[facility]/[place] [address] (ABNORMAL) Creatinine (07/08/2017 4:00 AM EST) Analysis Performed At Patho logist Time Signature Creatinine 1.55 (H) 0.80 - [place] 1.50 mg/dL [facility]ORATORY Estimated GFR 44 (L) >=60 [facility] Comment: The reported eGFR should be multiplied b y 1.2 for patients. The MDRD is not an appropriate measure o f renal function for patients with body mass extremes or in patients with acute kidney failure. http://Glofox/DHnkdep http://Glofox/DHMCnkf Specimen Anatomical Collection Method Collection Time Receive d Time (Source) Location / / Volume Laterality Blood specimen 07/08/2017 4:00 AM 017 4:09 (specimen) EST AM EST Resulting Agency Comment Spec In Lab Yuan Webber MD CHEMISTRY ORDERABLES Performing Organization Address City/[facility]/[place] [address] BUN (07/08/2017 4:00 AM EST) P athologist Signature BUN 16 10 - 20 [facility] mg/[facility] LABORATORY Specimen Anatomical Collection Method Collection Time Receive d Time (Source) Location / / Volume Laterality Blood specimen 07/08/2017 4:00 AM 017 4:09 (specimen) EST AM EST Resulting Agency Comment Spec In Lab Yuan Webber MD CHEMISTRY ORDERABLES Performing Organization Address City/[facility]/[place] [address] (ABNORMAL) POCT Glucose (07/08/2017 3:00 AM EST) P athologist Signature POC Glucose 273 (H) 65 - 199 [facility] mg/dL [facility]ORY Comment: Supplemental ranges: <140 mg/dL before meals <180 mg/dL all other times of the day Specimen Anatomical Collection Method Collection Time Receive d Time (Source) Location / / Volume Laterality Blood specimen 07/08/2017 3:00 AM 017 3:00 (specimen) EST AM EST Daphne Shahid MD POINT OF CARE TEST ORDERABLE S Performing Organization Address City/[facility]/[place] [address] (ABNORMAL) POCT Glucose (07/08/2017 1:57 AM EST) athologist Signature POC Glucose 288 (H) 65 - 199 [facility] mg/dL [facility] Comment: Supplemental ranges: <140 mg/dL before meals <180 mg/dL all other times of the day Specimen Anatomical Collection Method Collection Time Receive d Time (Source) Location / / Volume Laterality Blood specimen 07/08/2017 1:57 AM 017 1:57 (specimen) EST AM EST Daphne Shahid MD POINT OF CARE TEST ORDERABLE S Performing Organization Address City/[facility]/[place] [address] (ABNORMAL) POCT Glucose (07/08/2017 1:01 AM EST) athologist Signature POC Glucose 315 (H) 65 - 199 [facility] mg/dL [facility] Comment: Supplemental ranges: <140 mg/dL before meals <180 mg/dL all other times of the day Specimen Anatomical Collection Method Collection Time Receive d Time (Source) Location / / Volume Laterality Blood specimen 07/08/2017 1:01 AM 017 1:01 (specimen) EST AM EST Daphne Shahid MD POINT OF CARE TEST ORDERABLE S Performing Organization Address City/State/[place] [address] (ABNORMAL) BLOOD GAS 2 ARTERIAL (07/08/2017 12:09 AM EST) P athologist Signature pH Art 7.26 7.35 - [facility] (Critical) 7.[address] [facility]ORY Comment: Noted by musical instruments assembler. pCO2 Art 41 35 - 45 mmHg [facility] pO2 Art 96 85 - 104 mmHg [facility] HCO3 Art 17.7 (L) 20.0 - 26.0 mmol/L [facility] BE Art -9.4 (L) -3.0 - 3.0 mmol/L [facility] Hgb Blood Gas 12.4 (L) 13.7 - 16.5 gm/dL [facility] O2HB Art 94.7 94.0 - 97.0 % [facility] COHB Art 0.2 % [facility] Comment: Nonsmokers: 0.5-1.5% COHB Smokers: Variable, but usually less than 10% Toxic: 20-30% COHB Lethal: Greater than 60% COHB METHB Art 0.6 <=1.5 % [facility] Na Whole Blood 141 135 - 145 mmol/L [facility] K Whole Blood 3.5 3.5 - 5.0 mmol/L [facility] Comment: Please note: Patients with WBC >100,000 may have falsely elevated Potassium levels. Contact the Clinical Chemistry L aboratory if there are any questions. ICa Whole Blood 1.03 (L) 1.15 - 1.33 mmol/L [facility] Comment: Note: ??Total bilirubin higher than 20 m g/dL may lead to falsely low ionized calcium. CL Whole Blood 109 (H) 98 - 107 mmol/L [facility] Gluc Whole Bld 315 (H) 65 - 199 mg/dL [facility] Comment: Diabetes: >=200 mg/dL plus symp toms. Lactate WB 7.6 (Critical) 0.5 - 2.2 mmol/L [facility] Comment: Noted by musical instruments assembler. FIO2 Art 40 % [facility] PF Ratio Art 240 [facility] Specimen Anatomical Collection Method Collection Time Receive d Time (Source) Location / / Volume Laterality Blood specimen Arterial Draw / 07/08/2017 12:09 2016 5:31 (specimen) Unknown AM EST AM EST Resulting Agency Comment Spec In Lab Samy Maldonado MD CHEMISTRY ORDERABLES Performing Organization Address City/State/[place] [address] (ABNORMAL) POCT Glucose (07/07/2017 10:56 PM EST) athologist Signature POC Glucose 292 (H) 65 - 199 [facility] mg/dL [facility] Comment: Supplemental ranges: <140 mg/dL before meals <180 mg/dL all other times of the day Specimen Anatomical Collection Method Collection Time Receive d Time (Source) Location / / Volume Laterality Blood specimen 07/07/2017 10:56 7 (specimen) PM EST 10:56 PM EST Daphne Shahid MD POINT OF CARE TEST ORDERABLE S Performing Organization Address City/[facility]/[place] [address] (ABNORMAL) BLOOD GAS 2 ARTERIAL (07/07/2017 10:04 PM EST) athologist Signature pH Art 7.22 7.35 - [facility] (Critical) 7.[address] [facility] Comment: Noted by musical instruments assembler. pCO2 Art 42 35 - 45 mmHg [facility] pO2 Art 94 85 - 104 mmHg [facility] HCO3 Art 16.9 (L) 20.0 - 26.0 mmol/L [facility] BE Art -10.7 (L) -3.0 - 3.0 mmol/L [facility] Hgb Blood Gas 13.0 (L) 13.7 - 16.5 gm/dL [facility] O2HB Art 93.8 (L) 94.0 - 97.0 % [facility] COHB Art 0.7 % [facility] Comment: Nonsmokers: 0.5-1.5% COHB Smokers: Variable, but usually less than 10% Toxic: 20-30% COHB Lethal: Greater than 60% COHB METHB Art 0.7 <=1.5 % [facility] Na Whole Blood 140 135 - 145 mmol/L [facility] K Whole Blood 3.3 (L) 3.5 - 5.0 mmol/L [facility] Comment: Please note: Patients with WBC >100,000 may have falsely elevated Potassium levels. Contact the Clinical Chemistry L aboratory if there are any questions. ICa Whole Blood 1.07 (L) 1.15 - 1.33 mmol/L [facility] Comment: Note: ??Total bilirubin higher than 20 m g/dL may lead to falsely low ionized calcium. CL Whole Blood 107 98 - 107 mmol/L [facility] Gluc Whole Bld 304 (H) 65 - 199 mg/dL [facility] Comment: Diabetes: >=200 mg/dL plus symp toms. Lactate WB 8.2 (Critical) 0.5 - 2.2 mmol/L [facility] Comment: Noted by musical instruments assembler. FIO2 Art 40 % [facility] PF Ratio Art 235 [facility] Specimen Anatomical Collection Method Collection Time Receive d Time (Source) Location / / Volume Laterality Blood specimen 07/07/2017 10:04 7 (specimen) PM EST 10:04 PM EST Daphne Shahid MD CHEMISTRY ORDERABLES Performing Organization Address City/[facility]/ZIP Code Phon e Number [address] (ABNORMAL) Hemoglobin (07/07/2017 10:00 PM EST) P athologist Signature Hemoglobin 12.8 (L) 13.7 - [facility] 16.5 gm/dL [facility] LABORATORY Specimen Anatomical Collection Method Collection Time Receive d Time (Source) Location / / Volume Laterality Blood specimen 07/07/2017 10:00 7 (specimen) PM EST 10:13 PM EST Resulting Agency Comment Spec In Lab Yuan Webber MD HEMATOLOGY ORDERABLES Performing Organization Address City/[facility]/ZIP Code Phon e Number [address] (ABNORMAL) Potassium (07/07/2017 10:00 PM EST) P athologist Signature Potassium 3.4 (L) 3.5 - 5.0 [facility] mmol/L [facility]ORATORY Comment: Please note: ??Patients [...] Webber MD CHEMISTRY ORDERABLES Performing Organization Address City/[facility]/ZIP Code Phon e Number [address] (ABNORMAL) POCT Glucose (07/07/2017 8:49 PM EST) athologist [facility] POC Glucose 241 (H) 65 - 199 [facility] mg/dL [facility]ORATORY Comment: Supplemental ranges: <140 mg/dL before meals <180 mg/dL all other times of the day Specimen Anatomical Collection Method Collection Time Receive d Time (Source) Location / / Volume Laterality Blood specimen 07/07/2017 8:49 PM 017 8:49 (specimen) EST PM EST Daphne Shahid MD POINT OF CARE TEST ORDERABLE S Performing Organization Address City/[facility]/[place] [address] Prepare Albumin 5% in 250 mL (07/07/2017 8:03 PM EST) athologist [facility] Dispensed? Yes [facility] Specimen Anatomical Collection Method Collection Time Receive d Time (Source) Location / / Volume Laterality Blood specimen No Charge / 07/07/2017 8:03 PM 017 8:04 (specimen) Unknown EST PM EST Resulting Agency Comment Spec In Lab Michael BROWN BLOOD BANK ORDERABLES Performing Organization Address City/[facility]/[place] [address] EKG 12 Lead (07/07/2017 7:17 PM EST) Component Value Ref Range Test Analysis Performed Pathologis t Method Time At Signature Ventricular rate 75 BPM MUSE SYSTEM Atrial Rate 75 BPM MUSE SYSTEM P-R Interval 168 ms MUSE SYSTEM QRS Duration 104 ms MUSE SYSTEM Q-T Interval 462 ms MUSE SYSTEM QTC Calculated 515 ms MUSE SYSTEM (Bezet) Calculated P [place] 52 degrees MUSE SYSTEM Calculated R [place] -40 degrees MUSE SYSTEM Calculated T [place] 39 degrees MUSE SYSTEM INTERPRETATION Normal sinus [...] evolving Anterior infarct Present Confirmed by MD Jordan, Scott ([id number]) on 07/08/2017 8:11:05 AM Specimen Anatomical [...] pH Art 7.21 7.35 - [facility] (Critical) 7.[address] [facility] LAB[facility]ATORY Comment: Noted by musical instruments assembler. pCO2 Art 50 (H) 35 - 45 mmHg [facility]ORY pO2 Art 238 (H) 85 - 104 mmHg [facility] HCO3 Art 19.8 (L) 20.0 - 26.0 mmol/L [facility] BE Art -8.1 (L) -3.0 - 3.0 mmol/L [facility] Hgb Blood Gas 12.8 (L) 13.7 - 16.5 gm/dL [facility] O2HB Art 97.5 (H) 94.0 - 97.0 % [facility] COHB Art 0.5 % [facility] Comment: Nonsmokers: 0.5-1.5% COHB Smokers: Variable, but usually less than 10% Toxic: 20-30% COHB Lethal: Greater than 60% COHB METHB Art 0.7 <=1.5 % [facility] Na Whole Blood 140 135 - 145 mmol/L [facility] K Whole Blood 3.0 (Critical) 3.5 - 5.0 mmol/L [facility] Comment: Noted by musical instruments assembler. Please note: Patients with WBC >100,000 may have falsely elevated Potassium levels. Contact the Clinical Chemistry L aboratory if there are any questions. ICa Whole Blood 1.07 (L) 1.15 - 1.33 mmol/L [facility] Comment: Note: ??Total bilirubin higher than 20 m g/dL may lead to falsely low ionized calcium. CL Whole Blood 107 98 - 107 mmol/L [facility] Gluc Whole Bld 270 (H) 65 - 199 mg/dL [facility] Comment: Diabetes: >=200 mg/dL plus symp toms. Lactate WB 4.9 (Critical) 0.5 - 2.2 mmol/L [facility] Comment: Noted by musical instruments assembler. FIO2 Art 100 % [facility] PF Ratio Art 238 [facility] Specimen Anatomical Collection Method Collection Time Receive d Time (Source) Location / / Volume Laterality Blood specimen 07/07/2017 6:57 PM 017 6:57 (specimen) EST PM EST Daphne Shahid MD CHEMISTRY ORDERABLES Performing Organization Address City/State/ZIP Code Phon e Number [place] [id number] LAB[address] Drive (ABNORMAL) BLOOD GAS 2 ARTERIAL (07/07/2017 5:31 PM EST) P athologist Signature pH Art 7.29 7.35 - [facility] (Critical) 7.[address] [facility]ORATORY Comment: Noted by musical instruments assembler. pCO2 Art 48 (H) 35 - 45 mmHg [facility]ORY pO2 Art 137 (H) 85 - 104 mmHg [facility] HCO3 Art 22.4 20.0 - 26.0 mmol/L [facility] BE Art -4.3 (L) -3.0 - 3.0 mmol/L [facility] Hgb Blood Gas 10.0 (L) 13.7 - 16.5 gm/dL [facility] O2HB Art 97.3 (H) 94.0 - 97.0 % [facility] COHB Art 0.3 % [facility] Comment: Nonsmokers: 0.5-1.5% COHB Smokers: Variable, but usually less than 10% Toxic: 20-30% COHB Lethal: Greater than 60% COHB METHB Art 0.3 <=1.5 % [facility] Na Whole Blood 132 (L) 135 - 145 mmol/L [facility] K Whole Blood 4.0 3.5 - 5.0 mmol/L [facility] Comment: Please note: Patients with WBC >100,000 may have falsely elevated Potassium levels. Contact the Clinical Chemistry L aboratory if there are any questions. ICa Whole Blood 1.14 (L) 1.15 - 1.33 mmol/L [facility] Comment: Note: ??Total bilirubin higher than 20 m g/dL may lead to falsely low ionized calcium. CL Whole Blood 105 98 - 107 mmol/L [facility] Gluc Whole Bld 293 (H) 65 - 199 mg/dL [facility] Comment: Diabetes: >=200 mg/dL plus symp toms. Lactate WB 3.1 (H) 0.5 - 2.2 mmol/L [facility] Specimen Anatomical Collection Method Collection Time Receive d Time (Source) Location / / Volume Laterality Blood specimen 07/07/2017 5:31 PM 017 5:31 (specimen) EST PM EST Daphne Shahid MD CHEMISTRY ORDERABLES Performing Organization Address City/State/[place] [address] Fibrinogen (07/07/2017 5:30 PM EST) P athologist Signature Fibrinogen 224 180 - 510 [facility] mg/dL [facility] LAB[facility]ORY Comment: Called by: JEET, Read back by: Monica Campos /[email or web address], Date/Time:07/07/17 17:48. A fibrinogen level >100 mg/dL is adequat e for hemostasis in most patients without underlying bleeding disorders. Specimen Anatomical Collection Method Collection Time Receive d Time (Source) Location / / Volume Laterality Blood specimen 07/07/2017 5:30 PM 017 5:34 (specimen) EST PM EST Resulting Agency Comment Spec In Lab Yifan Perez MD HEMATOLOGY ORDERABLES Performing Organization Address City/[facility]/ZIP Code Phon e Number [address] APTT (07/07/2017 5:30 PM EST) P athologist Signature PTT 30 25 - 35 sec [facility] Comment: The recommended therapeutic range for fu ll dose, unfractionated heparin at [facility] is 80 ? 114 seconds. The [...] Perez MD HEMATOLOGY ORDERABLES Performing Organization Address City/[facility] [place] [address] (ABNORMAL) Prothrombin Time (07/07/2017 [...] Organization Address City/State/[place] [address] (ABNORMAL) Hemogram (07/07/2017 5:30 PM EST) athologist Signature WBC 19.6 (H) 4.0 - 9.5 [facility] x10(3)/[facility] LABORATORY RBC 3.08 (L) 4.58 - [facility] 5.54 [facility] x10(6)/[facility] LABORATORY Hemoglobin 9.2 (L) 13.7 - [facility] 16.5 gm/dL [facility] LABORATORY Hematocrit 28.0 (L) 40.5 - [facility] 48.5 % [facility] LABORATORY Comment: This result has been called to MONICA MORAN by DONALD GROSSMAN on 07 07 2017 at 1759, and has been read back. MCV 90.9 82.9 - 93.1 [facility] LABORATORY MCH 29.9 27.5 - 32.1 pg [facility] MCHC 32.9 32.0 - 35.7 gm/dL [facility] LABORATORY Platelets 155 145 - 357 x10(3)/[facility] LABORATORY RDWSD 46.5 (H) 36.0 - 45.0 [facility] LABORATORY RDWCV 14.1 (H) 11.4 - 13.8 % [facility] MPV 9.5 7.6 - 12.9 [facility] LABORATORY nRBC % Auto 0.0 % [facility]ORY nRBC Abs Auto 0.000 0.000 - 0.000 x10(3)/[facility] LABORATORY Specimen Anatomical Collection Method Collection Time Receive d Time (Source) Location / / Volume Laterality Blood specimen 07/07/2017 5:30 PM 017 5:34 (specimen) EST PM EST Resulting Agency Comment Spec In Lab Yifan Perez MD HEMATOLOGY ORDERABLES Performing Organization Address City/State/ZIP Code Phon e Number [address] Prepare Platelets, Apheresis (07/07/2017 5:00 PM EST) P athologist Signature Dispensed? Yes [facility] Specimen Anatomical Collection Method Collection Time Receive d Time (Source) Location / / Volume Laterality Blood specimen 07/07/2017 5:00 PM 017 4:58 (specimen) EST PM EST Daphne Shahid MD BLOOD BANK ORDERABLES Performing Organization Address City/[facility]/ZIP Code Phon e Number [address] Platelet count (07/07/2017 4:55 PM EST) athologist Signature Platelets 177 145 - 357 [facility] x10(3)/[facility] LABORATORY Plat Immature 1.5 0.0 - 7.4 [facility] % % [facility] LABORATORY Comment: Limitation of the Immature Platelet Frac tion (IPF)-May be less reliable when the platelet count is less than 71q166/u L due to statistical imprecision. The IPF [...] in a decreased state of production. References: [employer] The Clinical Value of the Immature Platelet Fraction (IPF) in Cell Recovery Document Number [id number] 12/2010 [employer] The Role of the Imm ature Platelet Fraction (IPF) in the Differential Diagnosis of Thrombocytopen ia, Document [id number] V012/04/13 P012/06 Specimen Anatomical Collection Method Collection Time Receive d Time (Source) Location / / Volume Laterality Blood specimen 07/07/2017 4:55 PM 017 5:13 (specimen) EST PM EST Resulting Agency Comment Spec In Lab Daphne Shahid MD HEMATOLOGY ORDERABLES Performing Organization Address City/State/ZIP Code Phon e Number [place] [id number]OS[address] LAB[address]ORY Drive (ABNORMAL) Hemoglobin and Hematocrit, blood (07/07/2017 4:55 PM EST) P athologist Signature Hemoglobin 9.1 (L) 13.7 - 16.5 [facility] gm/dL [facility] LABORATORY Comment: This result has been called to MALKA MORAN by DONALD GROSSMAN on 07 07 2017 at 1734, and has been read back. Hematocrit 26.6 (L) 40.5 - 48.5 % [facility] Comment: This result has been [...] Organization Address City/State/[place] [address] (ABNORMAL) BLOOD GAS 2 ARTERIAL (07/07/2017 4:38 PM EST) Analysis Performed At Patho logist Time Signature pH Art 7.37 7.35 - [facility] [address] [facility] LABORATORY pCO2 Art 44 35 - 45 [facility] mmHg [facility] LABORATORY pO2 Art 322 (H) 85 - 104 [facility] mmHg [facility] LABORATORY HCO3 Art 24.9 20.0 - [facility] 26.0 [facility] mmol/L [facility] LABORATORY BE Art -0.4 -3.0 - 3.0 [facility] mmol/L [facility] LABORATORY Hgb Blood Gas 10.1 (L) 13.7 - [facility] 16.5 gm/dL [facility] LABORATORY O2HB Art 98.7 (H) 94.0 - [facility] 97.0 % [facility] LABORATORY COHB Art 0.1 % [facility] Comment: Nonsmokers: 0.5-1.5% COHB Smokers: Variable, but usually less than 10% Toxic: 20-30% COHB Lethal: Greater than 60% COHB METHB Art 0.3 <=1.5 % [facility] LABORATORY Na Whole Blood 130 (L) 135 - 145 mmol/L [facility] LABORATORY K Whole Blood 5.7 (H) 3.5 - 5.0 mmol/L [facility] LABORATORY Comment: Please note: Patients with WBC >100,000 may have falsely elevated Potassium levels. Contact the Clinical Chemistry L aboratory if there are any questions. ICa Whole Blood 0.89 (Critical) 1.15 - 1.33 mmol/L [facility] Comment: Noted by musical instruments assembler. Note: ??Total bilirubin higher than 20 m g/dL may lead to falsely low ionized calcium. CL Whole Blood 101 98 - 107 mmol/L [facility] LABORATORY Gluc Whole Bld 295 (H) 65 - 199 mg/dL [facility] Comment: Diabetes: >=200 mg/dL plus symp toms. Lactate WB 1.7 0.5 - 2.2 mmol/L [facility] LAB[facility]ORY Specimen Anatomical Collection Method Collection Time Receive d Time (Source) Location / / Volume Laterality Blood specimen 07/07/2017 4:38 PM 017 4:38 (specimen) EST PM EST Daphne Shahid MD CHEMISTRY ORDERABLES Performing Organization Address City/State/[place] [address] (ABNORMAL) BLOOD GAS 2 VENOUS (07/07/2017 4:06 PM EST) Analysis Performed At Patho logist Time Signature pH Cody 7.31 (L) 7.32 - [facility] 7.[address] [facility] LABORATORY pCO2 Cody 47 41 - 51 [facility] LABORATORY pO2 Cody 53 (H) 25 - 40 [facility] LABORATORY HCO3 Cody 22.7 mmol/L [facility] BE Cody -3.7 mmol/L [facility] Hgb Blood Gas 10.2 (L) 13.7 - [facility] 16.5 gm/dL [facility] LABORATORY O2HB Cody 81.0 % [facility] COHB Cody 1.0 % [facility] Comment: Nonsmokers: 0.5-1.5% COHB Smokers: Variable, but usually less than 10% Toxic: 20-30% COHB Lethal: Greater than 60% COHB METHB Cody 0.3 <=1.5 % [facility] LABORATORY Na Whole Blood 132 (L) 135 - 145 mmol/L [facility] K Whole Blood 5.3 (H) 3.5 - 5.0 mmol/L [facility]ORY Comment: Please note: Patients with WBC >100,000 may have falsely elevated Potassium levels. Contact the Clinical Chemistry L aboratory if there are any questions. ICa Whole Blood 0.90 (Critical) 1.15 - 1.33 mmol/L [facility] Comment: Noted by musical instruments assembler. Note: ??Total bilirubin higher than 20 m g/dL may lead to falsely low ionized calcium. CL Whole Blood 100 98 - 107 mmol/L [facility] LABORATORY Gluc Whole Bld 231 (H) 65 - 199 mg/dL [facility] Comment: Diabetes: >=200 mg/dL plus symp toms Lactate WB 1.1 0.5 - 2.2 mmol/L [facility] BGas Source Venous [facility] Specimen Anatomical Collection Method Collection Time Receive d Time (Source) Location / / Volume Laterality Blood specimen 07/07/2017 4:06 PM 017 4:06 (specimen) EST PM EST Daphne Shahid MD CHEMISTRY ORDERABLES Performing Organization Address City/State/[place] [address] (ABNORMAL) BLOOD GAS 2 ARTERIAL (07/07/2017 4:05 PM EST) Analysis Performed At Patho logist Time Signature pH Art 7.36 7.35 - [facility] 7.[address] [facility] LABORATORY pCO2 Art 40 35 - 45 [facility] LABORATORY pO2 Art 282 (H) 85 - 104 [facility] LABORATORY HCO3 Art 22.1 20.0 - [facility] 26.0 [facility] mmol/[facility] LABORATORY BE Art -3.4 (L) -3.0 - 3.0 [facility] mmol/L [facility] LABORATORY Hgb Blood Gas 10.2 (L) 13.7 - [facility] 16.5 gm/dL [facility] O2HB Art 98.4 (H) 94.0 - [facility] 97.0 % [facility] LABORATORY COHB Art 0.3 % [facility] Comment: Nonsmokers: 0.5-1.5% COHB Smokers: Variable, but usually less than 10% Toxic: 20-30% COHB Lethal: Greater than 60% COHB METHB Art 0.3 <=1.5 % [facility] LABORATORY Na Whole Blood 131 (L) 135 - 145 mmol/L [facility] K Whole Blood 5.4 (H) 3.5 - 5.0 mmol/L [facility] LABORATORY Comment: Please note: Patients with WBC >100,000 may have falsely elevated Potassium levels. Contact the Clinical Chemistry L aboratory if there are any questions. ICa Whole Blood 0.86 (Critical) 1.15 - 1.33 mmol/L [facility] Comment: Noted by musical instruments assembler. Note: ??Total bilirubin higher than 20 m g/dL may lead to falsely low ionized calcium. CL Whole Blood 101 98 - 107 mmol/L [facility] LABORATORY Gluc Whole Bld 260 (H) 65 - 199 mg/dL [facility] Comment: Diabetes: >=200 mg/dL plus symp toms. Lactate WB 1.4 0.5 - 2.2 mmol/L [facility] LABOR[facility]ORY Specimen Anatomical Collection Method Collection Time Receive d Time (Source) Location / / Volume Laterality Blood specimen 07/07/2017 4:05 PM 017 4:05 (specimen) EST PM EST Daphne Shahid MD CHEMISTRY ORDERABLES Performing Organization Address City/State/[place] [address] (ABNORMAL) BLOOD GAS 2 ARTERIAL (07/07/2017 2:29 PM EST) Analysis Performed At Patho logist Time Signature pH Art 7.43 7.35 - [facility] 7.[address] [facility] LABORATORY pCO2 Art 36 35 - 45 [facility] mmHg [facility] LABORATORY pO2 Art 221 (H) 85 - 104 [facility] mmHg [facility] LABORATORY HCO3 Art 23.2 20.0 - [facility] 26.0 [facility] mmol/L [facility] LABORATORY BE Art -1.2 -3.0 - 3.0 [facility] mmol/L [facility] LABORATORY Hgb Blood Gas 13.9 13.7 - [facility] 16.5 gm/dL [facility] LABORATORY O2HB Art 97.8 (H) 94.0 - [facility] 97.0 % [facility] LABORATORY COHB Art 1.1 % [facility] Comment: Nonsmokers: 0.5-1.5% COHB Smokers: Variable, but usually less than 10% Toxic: 20-30% COHB Lethal: Greater than 60% COHB METHB Art 0.3 <=1.5 % [facility] LABORATORY Na Whole Blood 139 135 - 145 mmol/L [facility] K Whole Blood 4.0 3.5 - 5.0 mmol/L [facility] Comment: Please note: Patients with WBC >100,000 may have falsely elevated Potassium levels. Contact the Clinical Chemistry L aboratory if there are any questions. ICa Whole Blood 1.11 (L) 1.15 - 1.33 mmol/L [facility] Comment: Note: ??Total bilirubin higher than 20 m g/dL may lead to falsely low ionized calcium. CL Whole Blood 104 98 - 107 mmol/L [facility] Gluc Whole Bld 184 65 - 199 mg/dL [facility] Comment: Diabetes: >=200 mg/dL plus symp toms. Lactate WB 1.5 0.5 - 2.2 mmol/L [facility] Specimen Anatomical Collection Method Collection Time Receive d Time (Source) Location / / Volume Laterality Blood specimen 07/07/2017 2:29 PM 017 2:29 (specimen) EST PM EST Daphne Shahid MD CHEMISTRY ORDERABLES Performing Organization Address City/[facility]/[place] [address] Prepare Coag Factors (Non-Hemophilia) (07/07/2017 1:25 PM EST) P athologist Signature Dispensed? Yes [facility] Specimen Anatomical Collection Method Collection Time Receive d Time (Source) Location / / Volume Laterality Blood specimen 07/07/2017 1:25 PM 017 1:21 (specimen) EST PM EST Daphne Shahid MD BLOOD BANK ORDERABLES Performing Organization Address City/[facility]/[place] [address] Prepare RBC (07/07/2017 1:10 PM EST) P athologist Signature Dispensed? Yes [facility] Specimen Anatomical Collection Method Collection Time Receive d Time (Source) Location / / Volume Laterality Blood specimen 07/07/2017 1:10 PM 017 1:05 (specimen) EST PM EST Daphne Shahid MD BLOOD BANK ORDERABLES Performing Organization Address City/[facility]/[place] [address] POCT Glucose (07/07/2017 11:56 AM EST) P athologist Signature POC Glucose 188 65 - 199 [facility] mg/dL [facility] LABORATORY Comment: Supplemental ranges: <140 mg/dL before meals <180 mg/dL all other times of the day Specimen Anatomical Collection Method Collection Time Receive d Time (Source) Location / / Volume Laterality Blood specimen 07/07/2017 11:56 7 (specimen) AM EST 11:56 AM EST Daphne Shahid MD POINT OF CARE TEST ORDERABLE S Performing Organization Address City/[facility]/[place] [address] POCT Glucose (07/07/2017 11:05 AM EST) athologist Signature POC Glucose 168 65 - 199 [place] [facility] mg/dL [facility] LABORATORY Comment: Supplemental ranges: <140 mg/dL before meals <180 mg/dL all other times of the day Specimen Anatomical Collection Method Collection Time Receive d Time (Source) Location / / Volume Laterality Blood specimen 07/07/2017 11:05 7 (specimen) AM EST 11:05 AM EST Daphne Shahid MD POINT OF CARE TEST ORDERABLE S Performing Organization Address City/State/ZIP Code Phon e Number [address] POCT Glucose (07/07/2017 10:02 AM EST) athologist Signature POC Glucose 191 65 - 199 [place] [facility] mg/dL [facility] LABORATORY Comment: Supplemental ranges: <140 mg/dL before meals <180 mg/dL all other times of the day Specimen Anatomical Collection Method Collection Time Receive d Time (Source) Location / / Volume Laterality Blood specimen 07/07/2017 10:02 7 (specimen) AM EST 10:02 AM EST Daphne Shahid MD POINT OF CARE TEST ORDERABLE S Performing Organization Address City/State/ZIP Code Phon e Number [address] POCT Glucose (07/07/2017 7:53 AM EST) athologist Signature POC Glucose 178 65 - 199 [facility] SU mg/dL [facility] LABORATORY Comment: Supplemental ranges: <140 mg/dL before meals <180 mg/dL all other times of the day Specimen Anatomical Collection Method Collection Time Receive d Time (Source) Location / / Volume Laterality Blood specimen 07/07/2017 7:53 AM 017 7:53 (specimen) EST AM EST Daphne Shahid MD POINT OF CARE TEST ORDERABLE S Performing Organization Address City/State/ZIP Code Phon e Number [address] POCT Glucose (07/07/2017 7:03 AM EST) athologist Signature POC Glucose 188 65 - 199 [facility] LABORATORY Comment: Supplemental ranges: <140 mg/dL before meals <180 mg/dL all other times of the day Specimen Anatomical Collection Method Collection Time Receive d Time (Source) Location / / Volume Laterality Blood specimen 07/07/2017 7:03 AM 017 7:03 (specimen) EST AM EST Daphne Shahid MD POINT OF CARE TEST ORDERABLE S Performing Organization Address City/State/ZIP Code Phon e Number [address] (ABNORMAL) POCT Glucose (07/07/2017 6:17 AM EST) athologist Signature POC Glucose 207 (H) 65 - 199 [facility] LABORATORY Comment: Supplemental ranges: <140 mg/dL before meals <180 mg/dL all other times of the day Specimen Anatomical Collection Method Collection Time Receive d Time (Source) Location / / Volume Laterality Blood specimen 07/07/2017 6:17 AM 017 6:17 (specimen) EST AM EST Daphne Shahid MD POINT OF CARE TEST ORDERABLE S Performing Organization Address City/[facility]/ZIP Code Phon e Number [address] Differential, Automated (07/07/2017 5:15 AM EST) athologist [facility] Neutrophils % 69.7 % [facility] Neutr Abs (ANC) 5.32 1.70 - [facility] 6.10 [facility] x10(3)/[facility] LABORATORY Lymphocytes % 16.3 % [facility] Lymphocytes Abs 1.2 0.9 - 3.2 [facility] x10(3)/[facility] LABORATORY Monocytes % 10.5 % [facility] Monocyte Abs 0.8 0.3 - 0.9 [facility] x10(3)/[facility] LABORATORY Eosinophils % 2.5 % [facility] Eosinophils Abs 0.2 0.0 - 0.4 [facility] x10(3)/[facility] LABORATORY Basophils % 0.7 % [facility] Basophils Abs 0.0 0.0 - 0.1 [facility] x10(3)/[facility] LABORATORY Immature Gran % 0.30 % [facility] Comment: Immature granulocytes(IG's)percentage an d absolute count will include metamyelocytes, myelocytes, and promyelo cytes. Blood smears from CBCs yielding IG's will be scanned manually for concor dance. If this scan disagrees with the automated IG or if promyelocytes are not ed, a manual differential will be performed. Melisa Gran Abs 0.02 0.00 - 0.04 x10(3)/[facility] LABORATORY Specimen Anatomical Collection Method Collection Time Receive d Time (Source) Location / / Volume Laterality Blood specimen 07/07/2017 5:15 AM 017 5:34 (specimen) EST AM EST Resulting Agency Comment Spec In Lab Daphne Shahid MD HEMATOLOGY ORDERABLES Performing Organization Address City/State/[place] [address] (ABNORMAL) Hemogram (07/07/2017 5:15 AM EST) Analysis Performed At Patho logist Time Signature WBC 7.6 4.0 - 9.5 [facility] x10(3)/[facility] LABORATORY RBC 4.82 4.58 - [facility] 5.54 [facility] x10(6)/[facility] LABORATORY Hemoglobin 14.4 13.7 - [facility]dL [facility] LABORATORY Hematocrit 42.1 40.5 - [facility] 48.5 % [facility] LABORATORY MCV 87.3 82.9 - [facility] 93.1 [facility] LABORATORY MCH 29.9 27.5 - [place] [facility] 32.[address] [facility] LABORATORY MCHC 34.2 32.0 - [facility] 35.7 gm/dL [facility] LABORATORY Platelets 188 145 - 357 [facility] x10(3)/[facility] LABORATORY RDWSD 45.1 (H) 36.0 - [facility] SU 45.0 [facility] LABORATORY RDWCV 14.3 (H) 11.4 - [facility] SU 13.8 % [facility] LABORATORY MPV 9.4 7.6 - 12.9 [facility] LABORATORY nRBC % Auto 0.0 % [facility] nRBC Abs Auto 0.000 0.000 - [place] [facility] 0.000 [facility] x10(3)/[facility] LABORATORY Specimen Anatomical Collection Method Collection Time Receive d Time (Source) Location / / Volume Laterality Blood specimen 07/07/2017 5:15 AM 017 5:34 (specimen) EST AM EST Resulting Agency Comment Spec In Lab Daphne Shahid MD HEMATOLOGY ORDERABLES Performing Organization Address City/[facility]/ZIP Code Phon e Number [address] (ABNORMAL) APTT (07/07/2017 5:15 AM EST) P athologist Signature PTT 69 (H) 25 - 35 sec [facility] Comment: The recommended therapeutic range for fu ll dose, unfractionated heparin at [facility] is 80 ? 114 seconds. The [...] Shahid MD HEMATOLOGY ORDERABLES Performing Organization Address City/[facility]/ZIP Code Phon e Number [address] Magnesium (07/07/2017 5:15 AM EST) P athologist Signature Magnesium 0.94 0.69 - 1.07 [facility] mmol/L [facility] LABORATORY Specimen Anatomical Collection Method Collection Time Receive d Time (Source) Location / / Volume Laterality Blood specimen 07/07/2017 5:15 AM 017 5:34 (specimen) EST AM EST Resulting Agency Comment Spec In Lab Daphne Shahid MD CHEMISTRY ORDERABLES Performing Organization Address City/[facility]/[place] [address] (ABNORMAL) Basic Metabolic Panel (non-fasting) (07/07/2017 5:15 AM EST) P athologist Signature Glucose Lvl 203 (H) 65 - 199 [facility] mg/dL [facility] LABORATORY Comment: Diabetes: >=200 mg/dL plus symp toms BUN 15 10 - 20 mg/dL [facility] Creatinine 1.09 0.80 - 1.50 [...] - 107 mmol/L [facility] CO2 26 22 - 31 mmol/L [facility] Anion Gap 14 5 - 15 mmol/L [facility] Calcium 8.6 8.5 - 10.5 mg/dL [facility] LABORATORY Estimated GFR >60 >=60 [facility] Comment: The reported eGFR should be multiplied b y 1.2 for patients. The MDRD is not an appropriate measure o f renal function for patients with body mass extremes or in patients with acute kidney failure. [email or web address] Specimen Anatomical Collection Method Collection Time Receive d Time (Source) Location / / Volume Laterality Blood specimen 07/07/2017 5:15 AM 017 5:34 (specimen) EST AM EST Resulting Agency Comment Spec In Lab Daphne Shahid MD CHEMISTRY ORDERABLES Performing Organization Address City/[facility]/[place] [address] (ABNORMAL) Cardiac Enzymes (LEB/CGP) (07/07/2017 5:15 AM EST) athologist Signature Troponin-T 2.07 (H) 0.00 - [place] [facility] 0.00 ng/mL [facility] [facility] Comment: The 99th percentile [...] additional sample may be indicated. Reference: Third [place] Definition of Myocardial Infarction. Journal of the [place] [employer] 2012;60:1581-98 CK, Total 88 0 - 200 unit/L [facility] Specimen Anatomical Collection Method Collection Time Receive d Time (Source) Location / / Volume Laterality Blood specimen 07/07/2017 5:15 AM 017 5:34 (specimen) EST AM EST Resulting Agency Comment Spec In Lab Daphne Shahid MD CHEMISTRY ORDERABLES Performing Organization Address City/State/ZIP Code Phon e Number [address] POCT Glucose (07/07/2017 5:01 AM EST) athologist Signature POC Glucose 182 65 - 199 [facility] mg/dL [facility] Comment: Supplemental ranges: <140 mg/dL before meals <180 mg/dL all other times of the day Specimen Anatomical Collection Method Collection Time Receive d Time (Source) Location / / Volume Laterality Blood specimen 07/07/2017 5:01 AM 017 5:01 (specimen) EST AM EST Daphne Shahid MD POINT OF CARE TEST ORDERABLE S Performing Organization Address City/State/[place] [address] POCT Glucose (07/07/2017 4:08 AM EST) athologist Signature POC Glucose 199 65 - 199 [place] mg/dL [facility] Comment: Supplemental ranges: <140 mg/dL before meals <180 mg/dL all other times of the day Specimen Anatomical Collection Method Collection Time Receive d Time (Source) Location / / Volume Laterality Blood specimen 07/07/2017 4:08 AM 017 4:08 (specimen) EST AM EST Daphne Shahid MD POINT OF CARE TEST ORDERABLE S Performing Organization Address City/State/ZIP Code Phon e Number [address] POCT Glucose (07/07/2017 3:03 AM EST) athologist Signature POC Glucose 188 65 - 199 [place] mg/dL [facility] Comment: Supplemental ranges: <140 mg/dL before meals <180 mg/dL all other times of the day Specimen Anatomical Collection Method Collection Time Receive d Time (Source) Location / / Volume Laterality Blood specimen 07/07/2017 3:03 AM 017 3:03 (specimen) EST AM EST Daphne Shahid MD POINT OF CARE TEST ORDERABLE S Performing Organization Address City/State/[place] [address] (ABNORMAL) POCT Glucose (07/07/2017 2:08 AM EST) P athologist Signature POC Glucose 200 (H) 65 - 199 [place] mg/dL [facility] Comment: Supplemental ranges: <140 mg/dL before meals <180 mg/dL all other times of the day Specimen Anatomical Collection Method Collection Time Receive d Time (Source) Location / / Volume Laterality Blood specimen 07/07/2017 2:08 AM 017 2:08 (specimen) EST AM EST Daphne Shahid MD POINT OF CARE TEST ORDERABLE S Performing Organization Address City/State/[place] [address] (ABNORMAL) POCT Glucose (07/07/2017 1:31 AM EST) P athologist Signature POC Glucose 209 (H) 65 - 199 [facility] mg/dL [facility] Comment: Supplemental ranges: <140 mg/dL before meals <180 mg/dL all other times of the day Specimen Anatomical Collection Method Collection Time Receive d Time (Source) Location / / Volume Laterality Blood specimen 07/07/2017 1:31 AM 017 1:31 (specimen) EST AM EST Daphne Shahid MD POINT OF CARE TEST ORDERABLE S Performing Organization Address City/[facility]/[place] [address] XR Chest PA or [...] Signature POC Glucose 161 65 - 199 [facility] Comment: Supplemental ranges: <140 mg/dL before meals <180 mg/dL all other times of the day Specimen Anatomical Collection Method Collection Time Receive d Time (Source) Location / / Volume Laterality Blood specimen 07/07/2017 12:07 7 (specimen) AM EST 12:07 AM EST Daphne Shahid MD POINT OF CARE TEST ORDERABLE S Performing Organization Address City/[facility]/[place] [address] (ABNORMAL) APTT (07/07/2017 12:00 AM EST) athologist Signature PTT 103 (H) 25 - 35 sec [facility] Comment: The recommended therapeutic range for fu ll dose, unfractionated heparin at [facility] is 80 ? 114 seconds. The [...] Address City/State/ZIP Code Phon e Number [address] POCT Glucose (07/06/2017 9:55 PM EST) athologist Signature POC Glucose 109 65 - 199 [facility] mg/dL [facility] Comment: Supplemental ranges: <140 mg/dL before meals <180 mg/dL all other times of the day Specimen Anatomical Collection Method Collection Time Receive d Time (Source) Location / / Volume Laterality Blood specimen 07/06/2017 9:55 PM 017 9:55 (specimen) EST PM EST Daphne Shahid MD POINT OF CARE TEST ORDERABLE S Performing Organization Address City/State/ZIP Code Phon e Number [address] POCT Glucose (07/06/2017 9:04 PM EST) athologist Signature POC Glucose 120 65 - 199 [facility] Comment: Supplemental ranges: <140 mg/dL before meals <180 mg/dL all other times of the day Specimen Anatomical Collection Method Collection Time Receive d Time (Source) Location / / Volume Laterality Blood specimen 07/06/2017 9:04 PM 017 9:04 (specimen) EST PM EST Daphne Shahid MD POINT OF CARE TEST ORDERABLE S Performing Organization Address City/State/ZIP Code Phon e Number [address] POCT Glucose (07/06/2017 7:45 PM EST) athologist Signature POC Glucose 158 65 - 199 [facility] Comment: Supplemental ranges: <140 mg/dL before meals <180 mg/dL all other times of the day Specimen Anatomical Collection Method Collection Time Receive d Time (Source) Location / / Volume Laterality Blood specimen 07/06/2017 7:45 PM 017 7:45 (specimen) EST PM EST Daphne Shahid MD POINT OF CARE TEST ORDERABLE S Performing Organization Address City/State/ZIP Code Phon e Number [address] Potassium (07/06/2017 7:40 PM EST) athologist Signature Potassium 3.9 3.5 - 5.0 [facility] mmol/L [facility] Comment: Please note: ??Patients [...] Organization Address City/State/[place] [address] (ABNORMAL) Cardiac Enzymes (LEB/CGP) (07/06/2017 7:40 PM EST) athologist Signature Troponin-T 2.27 (H) 0.00 - [facility] 0.00 ng/mL [facility] Comment: The 99th percentile [...] additional sample may be indicated. Reference: Third [place] Definition of Myocardial Infarction. Journal of the [place] [employer] 2012;60:1581-98 CK, Total 93 0 - 200 unit/L [facility] Specimen Anatomical Collection Method Collection Time Receive d Time (Source) Location / / Volume Laterality Blood specimen 07/06/2017 7:40 PM 017 7:52 (specimen) EST PM EST Resulting Agency Comment Spec In Lab Daphne Shahid MD CHEMISTRY ORDERABLES Performing Organization Address City/[facility] [place] [address] (ABNORMAL) POCT Glucose (07/06/2017 7:13 PM EST) athologist Signature POC Glucose 200 (H) 65 - 199 [facility] Comment: Supplemental ranges: <140 mg/dL before meals <180 mg/dL all other times of the day Specimen Anatomical Collection Method Collection Time Receive d Time (Source) Location / / Volume Laterality Blood specimen 07/06/2017 7:13 PM 017 7:13 (specimen) EST PM EST Daphne Shahid MD POINT OF CARE TEST ORDERABLE S Performing Organization Address [facility] [place] [address] (ABNORMAL) APTT (07/06/2017 6:15 PM EST) athologist Signature PTT 94 (H) 25 - 35 sec [facility] Comment: The recommended therapeutic range for fu ll dose, unfractionated heparin at [facility] is 80 ? 114 seconds. The [...] Shahid MD HEMATOLOGY ORDERABLES Performing Organization Address City/[facility] [place] [address] (ABNORMAL) POCT Glucose (07/06/2017 6:03 PM EST) athologist Signature POC Glucose 236 (H) 65 - 199 [facility]/dL [facility] Comment: Supplemental ranges: <140 mg/dL before meals <180 mg/dL all other times of the day Specimen Anatomical Collection Method Collection Time Receive d Time (Source) Location / / Volume Laterality Blood specimen 07/06/2017 6:03 PM 017 6:03 (specimen) EST PM EST Daphne Shahid MD POINT OF CARE TEST ORDERABLE S Performing Organization Address City/State/[place] [address] (ABNORMAL) POCT Glucose (07/06/2017 5:01 PM EST) P athologist Signature POC Glucose 235 (H) 65 - 199 [place] mg/dL [facility] Comment: Supplemental ranges: <140 mg/dL before meals <180 mg/dL all other times of the day Specimen Anatomical Collection Method Collection Time Receive d Time (Source) Location / / Volume Laterality Blood specimen 07/06/2017 5:01 PM 017 5:01 (specimen) EST PM EST Daphne Shahid MD POINT OF CARE TEST ORDERABLE S Performing Organization Address City/State/[place] [address] (ABNORMAL) POCT Glucose (07/06/2017 4:06 PM EST) P athologist Signature POC Glucose 202 (H) 65 - 199 [place] mg/dL [facility] Comment: Supplemental ranges: <140 mg/dL before meals <180 mg/dL all other times of the day Specimen Anatomical Collection Method Collection Time Receive d Time (Source) Location / / Volume Laterality Blood specimen 07/06/2017 4:06 PM 017 4:06 (specimen) EST PM EST Daphne Shahid MD POINT OF CARE TEST ORDERABLE S Performing Organization Address City/State/[place] [address] POCT Glucose (07/06/2017 2:59 PM EST) P athologist Signature POC Glucose 178 65 - 199 [place] mg/dL [facility] Comment: Supplemental ranges: <140 mg/dL before meals <180 mg/dL all other times of the day Specimen Anatomical Collection Method Collection Time Receive d Time (Source) Location / / Volume Laterality Blood specimen 07/06/2017 2:59 PM 017 2:59 (specimen) EST PM EST Daphne Shahid MD POINT OF CARE TEST ORDERABLE S Performing Organization Address City/State/[place] [address] (ABNORMAL) Cardiac Enzymes (LEB/CGP) (07/06/2017 2:10 PM EST) athologist Signature Troponin-T 2.34 (H) 0.00 - [facility] 0.00 ng/mL [facility] Comment: The 99th percentile [...] additional sample may be indicated. Reference: Third [place] Definition of Myocardial Infarction. Journal of the [place] [employer] 2012;60:1581-98 CK, Total 101 0 - 200 unit/L [facility] Specimen Anatomical Collection Method Collection Time Receive d Time (Source) Location / / Volume Laterality Blood specimen 07/06/2017 2:10 PM 017 2:26 (specimen) EST PM EST Resulting Agency Comment Spec In Lab Daphne Shahid MD CHEMISTRY ORDERABLES Performing Organization Address City/State/ZIP Code Phon e Number [address] POCT Glucose (07/06/2017 2:08 PM EST) athologist Signature POC Glucose 192 65 - 199 [place] mg/dL [facility] Comment: Supplemental ranges: <140 mg/dL before meals <180 mg/dL all other times of the day Specimen Anatomical Collection Method Collection Time Receive d Time (Source) Location / / Volume Laterality Blood specimen 07/06/2017 2:08 PM 017 2:08 (specimen) EST PM EST Daphne Shahid MD POINT OF CARE TEST ORDERABLE S Performing Organization Address City/[facility]/ZIP Code Phon e Number [address] POCT Glucose (07/06/2017 1:04 PM EST) athologist Signature POC Glucose 162 65 - 199 [place] mg/dL [facility] Comment: Supplemental ranges: <140 mg/dL before meals <180 mg/dL all other times of the day Specimen Anatomical Collection Method Collection Time Receive d Time (Source) Location / / Volume Laterality Blood specimen 07/06/2017 1:04 PM 017 1:04 (specimen) EST PM EST Daphne Shahid MD POINT OF CARE TEST ORDERABLE S Performing Organization Address City/[facility]/[place] [address] POCT Glucose (07/06/2017 12:05 PM EST) athologist Signature POC Glucose 196 65 - 199 [place] mg/dL [facility] Comment: Supplemental ranges: <140 mg/dL before meals <180 mg/dL all other times of the day Specimen Anatomical Collection Method Collection Time Receive d Time (Source) Location / / Volume Laterality Blood specimen 07/06/2017 12:05 7 (specimen) PM EST 12:05 PM EST Daphne Shahid MD POINT OF CARE TEST ORDERABLE S Performing Organization Address City/State/[place] [address] EKG 12 Lead (07/06/2017 12:00 PM EST) Component Value Ref Range Test Analysis Performed Pathologis t Method Time At Signature Ventricular rate 91 BPM MUSE SYSTEM Atrial Rate 91 BPM MUSE SYSTEM P-R Interval 140 ms MUSE SYSTEM QRS Duration 94 ms MUSE SYSTEM Q-T Interval 394 ms MUSE SYSTEM QTC Calculated 484 ms MUSE SYSTEM (Bezet) Calculated P [place] 36 degrees MUSE SYSTEM Calculated R [place] -19 degrees MUSE SYSTEM Calculated T [place] 104 degrees MUSE SYSTEM INTERPRETATION Normal sinus rhythm MUSE SYSTEM 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) ST & T wave abnormality, consider lateral ischemia Abnormal ECG When compared with ECG of 05-JUL-2017 20:39, No significant change was found Confirmed by MD Luci, Taurus Braun ([id number]) on 07/06/2017 5:07:33 PM Specimen Anatomical Collection Method Collection Time Receive d Time (Source) Location / / Volume Laterality 07/06/2017 12:00 07/06/2017 5:07 PM EST PM EST Daphne Shahid MD ECG ORDERABLES Performing Organization Address City/State/ZIP Code Phon e Number MUSE SYSTEM ABORH Recheck Status (07/06/2017 12:00 PM EST) [facility] Method Time Signature ABORH Type Completed [facility] LABORATORY Specimen Anatomical Collection Method Collection Time Receive d Time (Source) Location / / Volume Laterality Blood specimen 07/06/2017 12:00 7 (specimen) PM EST 12:24 PM EST Resulting Agency Comment Spec In Lab Daphne Shahid MD BLOOD BANK ORDERABLES Performing Organization Address City/State/[place] [address] Antibody screen (07/06/2017 12:00 PM EST) [facility] Method Time Signature Ab Screen Negative [facility] LABORATORY Expires at 07/09/2017 [place]HAOSU [id number] on: [facility]ORY Specimen Anatomical Collection Method Collection Time Receive d Time (Source) Location / / Volume Laterality Blood specimen 07/06/2017 12:00 12/12/201 7 (specimen) PM EST 12:24 PM EST Resulting Agency Comment Spec In Lab Daphne Shahid MD BLOOD BANK ORDERABLES Performing Organization Address City/[facility]/[place] [address] ABO/Rh Typing (07/06/2017 12:00 PM EST) P athologist Signature ABORh Type O Pos [facility] Specimen Anatomical Collection Method Collection Time Receive d Time (Source) Location / / Volume Laterality Blood specimen 07/06/2017 12:00 7 (specimen) PM EST 12:24 PM EST Resulting Agency Comment Spec In Lab Daphne Shahid MD BLOOD BANK ORDERABLES Performing Organization Address [facility] [place] [address] Prothrombin Time (07/06/2017 11:24 AM EST) P athologist Signature PT 13.3 11.8 - 14.0 [facility] LABORATORY INR 1.0 0.9 - 1.1 [facility] Comment: [...] Shahid MD HEMATOLOGY ORDERABLES Performing Organization Address City/[facility]/[place] [address] (ABNORMAL) APTT (07/06/2017 11:24 AM EST) P athologist Signature PTT 52 (H) 25 - 35 sec [facility] Comment: The recommended therapeutic range for fu ll dose, unfractionated heparin at [facility] is 80 ? 114 seconds. The [...] Address City/State/ZIP Code Phon e Number [address] POCT Glucose (07/06/2017 11:02 AM EST) athologist Signature POC Glucose 187 65 - 199 [facility] Comment: Supplemental ranges: <140 mg/dL before meals <180 mg/dL all other times of the day Specimen Anatomical Collection Method Collection Time Receive d Time (Source) Location / / Volume Laterality Blood specimen 07/06/2017 11:02 7 (specimen) AM EST 11:02 AM EST Daphne Shahid MD POINT OF CARE TEST ORDERABLE S Performing Organization Address City/[facility]/ZIP Code Phon e Number [address] POCT Glucose (07/06/2017 10:18 AM EST) athologist Signature POC Glucose 193 65 - 199 [facility] Comment: Supplemental ranges: <140 mg/dL before meals <180 mg/dL all other times of the day Specimen Anatomical Collection Method Collection Time Receive d Time (Source) Location / / Volume Laterality Blood specimen 07/06/2017 10:18 7 (specimen) AM EST 10:18 AM EST Daphne Shahid MD POINT OF CARE TEST ORDERABLE S Performing Organization Address City/[facility]/ZIP Code Phon e Number [address] POCT Glucose (07/06/2017 9:25 AM EST) P athologist Signature POC Glucose 182 65 - 199 [facility] mg/dL [facility] Comment: Supplemental ranges: <140 mg/dL before meals <180 mg/dL all other times of the day Specimen Anatomical Collection Method Collection Time Receive d Time (Source) Location / / Volume Laterality Blood specimen 07/06/2017 9:25 AM 017 9:25 (specimen) EST AM EST Daphne Shahid MD POINT OF CARE TEST ORDERABLE S Performing Organization Address City/State/[place] [address] (ABNORMAL) Cardiac Enzymes (LEB/CGP) (07/06/2017 8:10 AM EST) P athologist Signature Troponin-T 2.26 (H) 0.00 - [place] 0.00 ng/mL [facility] Comment: The 99th percentile [...] additional sample may be indicated. Reference: Third [place] Definition of Myocardial Infarction. Journal of the [place] [employer] 2012;60:1581-98 CK, Total 124 0 - 200 unit/L [facility] Specimen Anatomical Collection Method Collection Time Receive d Time (Source) Location / / Volume Laterality Blood specimen 07/06/2017 8:10 AM 017 8:23 (specimen) EST AM EST Resulting Agency Comment Spec In Lab Daphne Shahid MD CHEMISTRY ORDERABLES Performing Organization Address City/State/ZIP Code Phon e Number [address] Magnesium (07/06/2017 8:10 AM EST) athologist Signature Magnesium 0.84 0.69 - 1.07 [facility] mmol/L [facility] Specimen Anatomical Collection Method Collection Time Receive d Time (Source) Location / / Volume Laterality Blood specimen 07/06/2017 8:10 AM 017 8:21 (specimen) EST AM EST Resulting Agency Comment Spec In Lab Daphne Shahid MD CHEMISTRY ORDERABLES Performing Organization Address City/[facility] Code Phon e Number [address] (ABNORMAL) Basic Metabolic Panel (non-fasting) (07/06/2017 8:10 AM EST) athologist Signature Glucose Lvl 199 65 - 199 [facility] mg/dL [facility] Comment: Diabetes: >=200 mg/dL plus symp toms BUN 16 10 - 20 mg/dL [facility] Creatinine 1.04 0.80 - 1.50 [...] Calcium 8.1 (L) 8.5 - 10.5 mg/dL [place] [facility] Estimated GFR >60 >=60 [facility] Comment: The reported eGFR should be multiplied b y 1.2 for patients. The MDRD is not an appropriate measure o f renal function for patients with body mass extremes or in patients with acute kidney failure. http://Glofox/DHnkdep http://Glofox/DHMCnkf Specimen Anatomical Collection Method Collection Time Receive d Time (Source) Location / / Volume Laterality Blood specimen 07/06/2017 8:10 AM 017 8:21 (specimen) EST AM EST Resulting Agency Comment Spec In Lab Daphne Shahid MD CHEMISTRY ORDERABLES Performing Organization Address City/[facility]/ZIP Code Phon e Number [address] POCT Glucose (07/06/2017 7:34 AM EST) P athologist Signature POC Glucose 198 65 - 199 [facility] Comment: Supplemental ranges: <140 mg/dL before meals <180 mg/dL all other times of the day Specimen Anatomical Collection Method Collection Time Receive d Time (Source) Location / / Volume Laterality Blood specimen 07/06/2017 7:34 AM 017 7:34 (specimen) EST AM EST Daphne Shahid MD POINT OF CARE TEST ORDERABLE S Performing Organization Address City/[facility]/ZIP Code Phon e Number [address] POCT Glucose (07/06/2017 7:03 AM EST) P athologist Signature POC Glucose 181 65 - 199 [facility] Comment: Supplemental ranges: <140 mg/dL before meals <180 mg/dL all other times of the day Specimen Anatomical Collection Method Collection Time Receive d Time (Source) Location / / Volume Laterality Blood specimen 07/06/2017 7:03 AM 017 7:03 (specimen) EST AM EST Daphne Shahid MD POINT OF CARE TEST ORDERABLE S Performing Organization Address City/State/[place] [address] XR Chest PA or [...] Signature POC Glucose 172 65 - 199 [facility] mg/dL [facility] Comment: Supplemental ranges: <140 mg/dL before meals <180 mg/dL all other times of the day Specimen Anatomical Collection Method Collection Time Receive d Time (Source) Location / / Volume Laterality Blood specimen 07/06/2017 6:21 AM 017 6:21 (specimen) EST AM EST Daphne Shahid MD POINT OF CARE TEST ORDERABLE S Performing Organization Address City/[facility]/ZIP Code Phon e Number [address] POCT Glucose (07/06/2017 5:08 AM EST) athologist Signature POC Glucose 154 65 - 199 [place] mg/dL [facility] Comment: Supplemental ranges: <140 mg/dL before meals <180 mg/dL all other times of the day Specimen Anatomical Collection Method Collection Time Receive d Time (Source) Location / / Volume Laterality Blood specimen 07/06/2017 5:08 AM 017 5:08 (specimen) EST AM EST Daphne Shahid MD POINT OF CARE TEST ORDERABLE S Performing Organization Address City/State/ZIP Code Phon e Number [address] POCT Glucose (07/06/2017 4:05 AM EST) athologist Signature POC Glucose 142 65 - 199 [facility] Comment: Supplemental ranges: <140 mg/dL before meals <180 mg/dL all other times of the day Specimen Anatomical Collection Method Collection Time Receive d Time (Source) Location / / Volume Laterality Blood specimen 07/06/2017 4:05 AM 017 4:05 (specimen) EST AM EST Daphne Shahid MD POINT OF CARE TEST ORDERABLE S Performing Organization Address City/State/ZIP Code Phon e Number [address] POCT Glucose (07/06/2017 3:00 AM EST) athologist Signature POC Glucose 116 65 - 199 [facility] LABORATORY Comment: Supplemental ranges: <140 mg/dL before meals <180 mg/dL all other times of the day Specimen Anatomical Collection Method Collection Time Receive d Time (Source) Location / / Volume Laterality Blood specimen 07/06/2017 3:00 AM 017 3:00 (specimen) EST AM EST Daphne Shahid MD POINT OF CARE TEST ORDERABLE S Performing Organization Address City/[facility]/[place] [address] Potassium (07/06/2017 2:20 AM EST) athologist Signature Potassium 3.9 3.5 - 5.0 [facility] mmol/L [facility] LABORATORY Comment: Please note: ??Patients [...] Shahid MD CHEMISTRY ORDERABLES Performing Organization Address City/[facility]/ZIP [facility] Phon e Number [address] Differential, Automated (07/06/2017 2:20 AM EST) athologist Signature Neutrophils % 72.9 % [facility] LABORATORY Neutr Abs (ANC) 5.53 1.70 - [facility] 6.10 [facility] x10(3)/[facility] LABORATORY Lymphocytes % 16.4 % [facility] LABORATORY Lymphocytes Abs 1.2 0.9 - 3.2 [facility] x10(3)/[facility] LABORATORY Monocytes % 9.4 % [facility] LABORATORY Monocyte Abs 0.7 0.3 - 0.9 [facility] x10(3)/[facility] LABORATORY Eosinophils % 0.5 % [facility] LABORATORY Eosinophils Abs 0.0 0.0 - 0.4 [facility] x10(3)/[facility] LABORATORY Basophils % 0.4 % [facility] LABOR[facility] Basophils Abs 0.0 0.0 - 0.1 [facility] x10(3)/[facility] LABORATORY Immature Gran % 0.40 % [facility] [...] Gran Abs 0.03 0.00 - 0.04 x10(3)/[facility] MAR Y [facility] LABORATORY Specimen Anatomical Collection Method Collection Time Receive d Time (Source) Location / / Volume Laterality Blood specimen 07/06/2017 2:20 AM 017 2:33 (specimen) EST AM EST Resulting Agency Comment Spec In Lab Daphne Shahid MD HEMATOLOGY ORDERABLES Performing Organization Address City/State/[place] [address] (ABNORMAL) Hemogram (07/06/2017 2:20 AM EST) Analysis Performed At Patho logist Time Signature WBC 7.6 4.0 - 9.5 [facility] x10(3)/[facility] LABORATORY RBC 4.52 (L) 4.58 - [facility] 5.54 [facility] x10(6)/[facility] LABORATORY Hemoglobin 13.4 (L) 13.7 - [facility] 16.5 gm/dL [facility] LABORATORY Hematocrit 39.7 (L) 40.5 - [facility] SU 48.5 % [facility] LABORATORY MCV 87.8 82.9 - [facility] 93.1 [facility] LABORATORY MCH 29.6 27.5 - [place] 32.[address] [facility] LABORATORY MCHC 33.8 32.0 - [facility] 35.7 gm/dL [facility] LABORATORY Platelets 189 145 - 357 [facility] x10(3)/[facility] LABORATORY RDWSD 45.6 (H) 36.0 - [facility] SU 45.0 [facility] LABORATORY RDWCV 14.3 (H) 11.4 - [facility] 13.8 % [facility] LABORATORY MPV 9.1 7.6 - 12.9 [facility] LABORATORY nRBC % Auto 0.0 % [facility] LABORATORY nRBC Abs Auto 0.000 0.000 - [place] DAVIS 0.000 [facility] x10(3)/[facility] LABORATORY Specimen Anatomical Collection Method Collection Time Receive d Time (Source) Location / / Volume Laterality Blood specimen 07/06/2017 2:20 AM 017 2:33 (specimen) EST AM EST Resulting Agency Comment Spec In Lab Daphne Shahid MD HEMATOLOGY ORDERABLES Performing Organization Address City/State/ZIP Code Phon e Number [address] (ABNORMAL) APTT (07/06/2017 2:20 AM EST) P athologist Signature PTT 52 (H) 25 - 35 sec [facility] LABORATORY Comment: The recommended therapeutic range for fu ll dose, unfractionated heparin at [facility] is 80 ? 114 seconds. The [...] Organization Address City/State/[place] [address] POCT Glucose (07/06/2017 2:20 AM EST) P athologist Signature POC Glucose 115 65 - 199 [facility] mg/dL [facility] LABORATORY Comment: Supplemental ranges: <140 mg/dL before meals <180 mg/dL all other times of the day Specimen Anatomical Collection Method Collection Time Receive d Time (Source) Location / / Volume Laterality Blood specimen 07/06/2017 2:20 AM 017 2:20 (specimen) EST AM EST Daphne Shahid MD POINT OF CARE TEST ORDERABLE S Performing Organization Address City/State/[place] [address] (ABNORMAL) Cardiac Enzymes (LEB/CGP) (07/06/2017 2:20 AM EST) P athologist Signature Troponin-T 2.13 (H) 0.00 - [place] SU 0.00 ng/mL [facility] LABORATORY Comment: The 99th percentile [...] additional sample may be indicated. Reference: Third [place] Definition of Myocardial Infarction. Journal of the [place] [employer] 2012;60:1581-98 CK, Total 129 0 - 200 unit/L [facility] LABORATORY Specimen Anatomical Collection Method Collection Time Receive d Time (Source) Location / / Volume Laterality Blood specimen 07/06/2017 2:20 AM 017 2:33 (specimen) EST AM EST Resulting Agency Comment Spec In Lab Daphne Shahid MD CHEMISTRY ORDERABLES Performing Organization Address City/State/[place] [address] (ABNORMAL) Hemoglobin A1c (07/06/2017 2:20 AM EST) Analysis Performed At Patho logist Time Signature Hemoglobin A1C 6.8 (H) 4.3 - 5.6 [place] DAV[place] [facility] LABORATORY Comment: Reference Range: 4.3 - [...] Mellitus, Diabetes Care 2013; 36: Suppl. 1, S67-25 Est Avg Gluc See note mg/dL [facility] LABORATORY Comment: Estimated Average [...] with hemoglobinopathies. Additional resources are available on [facility] ADA website. Macario HAMMOND, Ruthann J, Deysi R, et al. ??Tr anslating the A1C assay into estimated average glucose values. ??Diabetes Care 2008:31(8):3274-1799. Specimen Anatomical Collection Method Collection Time Receive d Time (Source) Location / / Volume Laterality Blood specimen 07/06/2017 2:20 AM 017 2:34 (specimen) EST AM EST Resulting Agency Comment Spec In Lab Daphne Shahid MD CHEMISTRY ORDERABLES Performing Organization Address City/State/ZIP Code [place] [address] (ABNORMAL) Lipid Panel (07/06/2017 2:20 AM EST) [facility] Method Time Signature Chol, Total 150 <=239 [place] mg/dL [facility] LABORATORY Triglycerides 129 <=199 [place] mg/dL [facility] LABORATORY HDL 32 (L) >=40 [place] mg/dL [facility] LABORATORY LDL Cholesterol 92 <=190 [place] mg/dL [facility] LABORATORY Chol/HDL Ratio 4.7 ratio [facility] LABOR[facility] Lipid See Note [place] Interpretation [facility] LABORATORY Comment: Lipid management should be guided by a p atient? s ASCVD risk, goals and preferences. ACC/AHA Guidelines recommend high intens ity statin if clinical ASCVD or LDL greater than or equal to 190 mg/dL. http://Iptune.Guzu/BAC-KBE-Izbxyoksb Adults aged 40-75 with LDL 70-189 mg/dL should have their 10 year ASCVD risk estimated with the ACC/AHA ASCVD risk es timator http://tools.acc.org/AZJZB-Qzsb-Yocdmras r/ Statin should be discussed if risk [...] Address City/State/ZIP Code [place] [address] POCT Glucose (07/06/2017 1:09 AM EST) athologist Signature POC Glucose 121 65 - 199 [facility] SU mg/dL [facility] LABORATORY Comment: Supplemental ranges: <140 mg/dL before meals <180 mg/dL all other times of the day Specimen Anatomical Collection Method Collection Time Receive d Time (Source) Location / / Volume Laterality Blood specimen 07/06/2017 1:09 AM 017 1:09 (specimen) EST AM EST Daphne Shahid MD POINT OF CARE TEST ORDERABLE S Performing Organization Address City/State/ZIP Code Phon e Number [address] POCT Glucose (07/06/2017 12:06 AM EST) athologist Signature POC Glucose 147 65 - 199 [facility] LABORATORY Comment: Supplemental ranges: <140 mg/dL before meals <180 mg/dL all other times of the day Specimen Anatomical Collection Method Collection Time Receive d Time (Source) Location / / Volume Laterality Blood specimen 07/06/2017 12:06 7 (specimen) AM EST 12:06 AM EST Daphne Shahid MD POINT OF CARE TEST ORDERABLE S Performing Organization Address City/State/[place] [address] (ABNORMAL) POCT Glucose (07/05/2017 10:56 PM EST) athologist Signature POC Glucose 200 (H) 65 - 199 [place] mg/dL [facility] LABORATORY Comment: Supplemental ranges: <140 mg/dL before meals <180 mg/dL all other times of the day Specimen Anatomical Collection Method Collection Time Receive d Time (Source) Location / / Volume Laterality Blood specimen 07/05/2017 10:56 7 (specimen) PM EST 10:56 PM EST Daphne Shahid MD POINT OF CARE TEST ORDERABLE S Performing Organization Address City/State/[place] [address] (ABNORMAL) POCT Glucose (07/05/2017 10:05 PM EST) P athologist Signature POC Glucose 225 (H) 65 - 199 [facility] LABORATORY Comment: Supplemental ranges: <140 mg/dL before meals <180 mg/dL all other times of the day Specimen Anatomical Collection Method Collection Time Receive d Time (Source) Location / / Volume Laterality Blood specimen 07/05/2017 10:05 7 (specimen) PM EST 10:05 PM EST Daphne Shahid MD POINT OF CARE TEST ORDERABLE S Performing Organization Address City/[facility]/[place] [address] (ABNORMAL) POCT Glucose (07/05/2017 9:02 PM EST) athologist Signature POC Glucose 301 (H) 65 - 199 [facility] mg/dL [facility] LABORATORY Comment: Supplemental ranges: <140 mg/dL before meals <180 mg/dL all other times of the day Specimen Anatomical Collection Method Collection Time Receive d Time (Source) Location / / Volume Laterality Blood specimen 07/05/2017 9:02 PM 017 9:02 (specimen) EST PM EST Daphne Shahid MD POINT OF CARE TEST ORDERABLE S Performing Organization Address City/[facility]/[place] [address] XR Chest PA or [...] 474 ms MUSE SYSTEM (Bezet) Calculated P [place] 50 degrees MUSE SYSTEM Calculated R [place] -28 degrees MUSE SYSTEM Calculated T [place] 90 degrees MUSE SYSTEM INTERPRETATION Sinus tachycardia [...] (ABNORMAL) Differential, Automated (07/05/2017 8:20 PM EST) [facility] gist Method Time Signature Neutrophils % 88.4 % [facility] LABORATORY Neutr Abs (ANC) 9.08 (H) 1.70 - [facility] 6.10 [facility] x10(3)/[facility] LABORATORY Lymphocytes % 7.0 % [facility] LABORATORY Lymphocytes Abs 0.7 (L) 0.9 - 3.2 [facility] x10(3)/[facility] LABORATORY Monocytes % 3.7 % [facility] LABORATORY Monocyte Abs 0.4 0.3 - 0.9 [facility] x10(3)/[facility] LABORATORY Eosinophils % 0.1 % [facility] LABORATORY Eosinophils Abs 0.0 0.0 - 0.4 [facility] x10(3)/[facility] LABORATORY Basophils % 0.2 % [facility] LABOR[facility] Basophils Abs 0.0 0.0 - 0.1 [facility] x10(3)/[facility] LABORATORY Immature Gran % 0.60 % [facility] [...] Organization Address City/State/[place] [address] (ABNORMAL) Hemogram (07/05/2017 8:20 PM EST) Analysis Performed At Patho logist Time Signature WBC 10.3 (H) 4.0 - 9.5 [facility] x10(3)/[facility] LABORATORY RBC 4.64 4.58 - [facility] 5.54 [facility] x10(6)/[facility] LABORATORY Hemoglobin 14.1 13.7 - [facility] 16.5 gm/dL [facility] LABORATORY Hematocrit 40.8 40.5 - [place] 48.5 % [facility] LABORATORY MCV 87.9 82.9 - [place] 93.1 [facility] LABORATORY MCH 30.4 27.5 - [place] OLIVASCK 32.[address] [facility] LABORATORY MCHC 34.6 32.0 [facility] LABORATORY Platelets 204 145 - 357 [facility] x10(3)/[facility] LABORATORY RDWSD 46.1 (H) 36.0 - [facility] 45.0 [facility] LABORATORY RDWCV 14.5 (H) 11.4 - [facility] 13.8 % [facility] LABORATORY MPV 9.7 7.6 - 12.9 [facility] LABORATORY nRBC % Auto 0.0 % [facility] LABORATORY nRBC Abs Auto 0.000 0.000 - [place] SU 0.000 [facility] x10(3)/[facility] LABORATORY Specimen Anatomical Collection Method Collection Time Receive d Time (Source) Location / / Volume Laterality Blood specimen 07/05/2017 8:20 PM 017 8:27 (specimen) EST PM EST Resulting Agency Comment Spec In Lab Daphne Shahid MD HEMATOLOGY ORDERABLES Performing Organization Address City/State/[place] [address] APTT (07/05/2017 8:20 PM EST) athologist Signature PTT 32 25 - 35 sec [facility] LAB[facility]ORY Comment: The recommended therapeutic range for fu ll dose, unfractionated heparin at [facility] is 80 ? 114 seconds. The [...] Shahid MD HEMATOLOGY ORDERABLES Performing Organization Address City/[facility]/ZIP Code Phon e Number [address] (ABNORMAL) Cardiac Enzymes (LEB/CGP) (07/05/2017 8:20 PM EST) P athologist Signature Troponin-T 2.11 (H) 0.00 - [facility] 0.[facility] ng/mL [facility] LABORATORY Comment: The 99th percentile [...] additional sample may be indicated. Reference: Third [place] Definition of Myocardial Infarction. Journal of the [place] [employer] 2012;60:1581-98 CK, Total 149 0 - 200 unit/L [facility] LABORATORY Specimen Anatomical Collection Method Collection Time Receive d Time (Source) Location / / Volume Laterality Blood specimen 07/05/2017 8:20 PM 017 8:27 (specimen) EST PM EST Resulting Agency Comment Spec In Lab Daphne Shahid MD CHEMISTRY ORDERABLES Performing Organization Address City/[facility]/[place] [address] (ABNORMAL) Magnesium (07/05/2017 8:20 PM EST) athologist Signature Magnesium 0.68 (L) 0.69 - 1.07 [facility] mmol/L [facility] LABORATORY Specimen Anatomical Collection Method Collection Time Receive d Time (Source) Location / / Volume Laterality Blood specimen 07/05/2017 8:20 PM 017 8:27 (specimen) EST PM EST Resulting Agency Comment Spec In Lab Daphne Shahid MD CHEMISTRY ORDERABLES Performing Organization Address City/State/[place] [address] (ABNORMAL) Basic Metabolic Panel (non-fasting) (07/05/2017 8:20 PM EST) athologist Signature Glucose Lvl 321 (H) 65 - 199 [facility] mg/dL [facility] LABORATORY Comment: Diabetes: >=200 mg/dL [...] [facility] Estimated GFR >60 >=60 [facility] Comment: The reported eGFR should be multiplied b y 1.2 for patients. The MDRD is not an appropriate measure o f renal function for patients with body mass extremes or in patients with acute kidney failure. http://Glofox/DHnkdep http://Glofox/DHMCnkf Specimen Anatomical Collection Method Collection Time Receive d Time (Source) Location / / Volume Laterality Blood specimen 07/05/2017 8:20 PM 017 8:27 (specimen) EST PM EST Resulting Agency Comment Spec In Lab Daphne Shahid MD CHEMISTRY ORDERABLES Performing Organization Address City/State/[place] [address] (ABNORMAL) POCT Glucose (07/05/2017 7:32 PM EST) athologist Signature POC Glucose 296 (H) 65 - 199 [facility] mg/dL [facility] LABORATORY Comment: Supplemental ranges: <140 mg/dL before meals <180 mg/dL all other times of the day Specimen Anatomical Collection Method Collection Time Receive d Time (Source) Location / / Volume Laterality Blood specimen 07/05/2017 7:32 PM 017 7:32 (specimen) EST PM EST Daphne Shahid MD POINT OF CARE TEST ORDERABLE S Performing Organization Address City/State/[place] [address] CARDIAC CATHETERIZATION (07/05/2017 6:47 PM EST) Specimen (Source) Anatomical Location Collection Method / Collectio n Time Received Time / Laterality Volume Narrative CARDIOMAC SYSTEM - 07/05/2017 7:27 PM ES T ?[facility] ? Cardiac Cathete rization/Intervention Report ? Patient Name: Natalya, Gregory ? Procedure Date: 07/05/2017 ? A #: [id number] ? Primary Physician: Clarisa, Jet T ? Case #: [id number] ? File Name: [id number] ? Catheterization Order Number: [id number] ? [facility] ? Final Report [place], [place] ? Patient Name: ? Gregory Natalya ?ID#: ?[id number] ? : ?1945 ? Procedure Date: ? Johnny 11, 20 17 ?Case #: ? [id number] ? Room: ? 6 ? Case Physician: ? Jet Mckenna , MMadihaD. ?Start: ?18:06 ? Admission: ??07/05/2017 ? Discharge: [...] presented with: non -STEMI (w/i 7 days). Morrice ?Cardiovascular Society angina c lass was IV. [...] the sedation nurse. ??Case time = 00:42. ?Barbara Madison the coronary angiography, left heart ?catheterization, access site angio graphy and IABP insertion in rags laborer. ? Jet Mckenna M.D. ? Electronically Signed by: Jet bunch M.D. ? Report Finalized: 07/05/2017 ??19:23 ? Report Last Ammended: 10/26/2017 ??10:29 ? Procedure Note Jet Mckenna MD - 10/26/2017Formatt ing of this note might be different from the original. [facility] [place] Cardiac Catheterization/Intervention Re port Patient Name: Gregory Hoang Procedure Date: 07/05/2017 A #: [id number] Primary Physician: Jet Mckenna Case #: [id number] File Name: [id number] Catheterization Order Number: [id number] [facility] Final Report [place], [place] Patient Name: Gregory Hoang ID#: [id number] : 1945 Procedure Date: July 05, [...] managed with lipid therapy. The patient has mayrlou betes managed by oral medication and insulin. [...] presented with: non-STEMI ( w/i 7 days). Morrice [employer] angina class was IV. No [...] site angiograph y and IABP insertion in rags laborer. Jet Mckenna M.D. Electronically Signed by: [...] Mccollum ? (Age): 1945(72y) Med Rec#: ? [id number] ?Sex: ?M ? Site Loc: ? [facility] ?Ht / Wt: ??173(cm)/86(kg) Pt. Loc: ?CCU ? BSA: ?2 Study Date: ?? 07/05/2017 ?Pt. Type: Inpatient Tape: ? Referring: Daphne Shahid ([id number]) Referring: MANDA ALCANTAR Reading: Blade Preston ([id number]) Teacher Of The Handicapped: Dayami Paula BA, [facility] Diagnosis: *ICD-10-PCS Non-ST elevation (NSTEMI) m [...] E-wave Vmax ?0.8 ?m/sec ? MV deceleration [id number] ?msec ? MV A-wave Vmax ?0.8 ?m/sec [...] ? Mid-Inferior ?Akinetic ? Mid-Inferoseptal ?Hypokinetic ? [place]-Septal ? Akinetic ? [place]-Anterior ? Hypokinetic ? [place]-Lateral ?Hypokinetic ? [place]-Inferior ? Akinetic ? [place]-Tip ?Akinetic ? This report has been electronically sign ed by: _ Blade Preston MD ? 07/06/2017 08 :53:15 Images reviewed and interpretation [facility] Procedure Note Blade Preston MD - 07/06/2017Formatt ing of this note might be different from the original. Procedure: Transthoracic Echocardiogram Patient: NATALYA MCBRIDE(Age): [birth year]72y) Med Rec#: [id number] Sex: M Site Loc: [facility] Ht / Wt: 173(cm)/86(kg) Pt. Loc: [facility] BSA: 2 Study Date: 07/05/2017 Pt. Type: Inpatie nt Tape: Referring: Daphne Shahid ([id number]) Referring: MANDA ALCANTAR Reading: Blade Preston ([id number]) Teacher Of The Handicapped: Dayami Paula BA, [facility] Diagnosis: *ICD-10-PCS Non-ST elevation (NSTEMI) m [...] MV E-wave Vmax 0.8 m/sec MV deceleration [id number] msec MV A-wave Vmax 0.8 m/sec MV [...] Hypokinetic Mid-Posterolateral Hypokinetic Mid-Inferior Akinetic Mid-Inferoseptal Hypokinetic [place]-Septal Akinetic [place]-Anterior Hypokinetic [place]-Lateral Hypokinetic [place]-Inferior Akinetic [place]-Tip Akinetic This report has been electronically sign ed by: _ Blade Preston MD 07/06/2017 08:53:15 Images reviewed and interpretation verif ied [facility] Cardiac Ultrasound Laboratory Daphne Shahid MD ECHO ORDERABLES Performing Organization Address City/State/ZIP Code Phon e Number [facility] Differential, Automated (07/05/2017 4:55 PM EST) P athologist Signature Neutrophils % 77.0 % [facility] Neutr Abs (ANC) 5.26 1.70 - [facility] 6.10 [facility] x10(3)/[facility] LABORATORY Lymphocytes % 13.3 % [facility] Lymphocytes Abs 0.9 0.9 - 3.2 [facility] x10(3)/[facility] LABORATORY Monocytes % 8.2 % [facility] Monocyte Abs 0.6 0.3 - 0.9 [facility] x10(3)/[facility] LABORATORY Eosinophils % 0.7 % [facility] Eosinophils Abs 0.0 0.0 - 0.4 [facility] x10(3)/[facility] LABORATORY Basophils % 0.4 % [facility] Basophils Abs 0.0 0.0 - 0.1 [facility] x10(3)/[facility] LABORATORY Immature Gran % 0.40 % [facility] [...] Gran Abs 0.03 0.00 - 0.04 x10(3)/[facility] MAR Y [facility] LABORATORY Specimen Anatomical Collection Method Collection Time Receive d Time (Source) Location / / Volume Laterality Blood specimen 07/05/2017 4:55 PM 017 5:24 (specimen) EST PM EST Resulting Agency Comment Spec In Lab Daphne Shahid MD HEMATOLOGY ORDERABLES Performing Organization Address City/State/[place] [address] (ABNORMAL) Hemogram (07/05/2017 4:55 PM EST) Analysis Performed At Patho logist Time Signature WBC 6.8 4.0 - 9.5 [facility] x10(3)/[facility] LABORATORY RBC 4.67 4.58 - [facility] 5.54 [facility] HOSPITAL x10(6)/[facility] LABORATORY Hemoglobin 14.0 13.7 - [facility] 16.5 gm/dL [facility] LABORATORY Hematocrit 41.0 40.5 - [facility] 48.5 % [facility] LABORATORY MCV 87.8 82.9 - [facility] 93.[address] [facility] LABORATORY MCH 30.0 27.5 - [facility] 32.[address] [facility] LABORATORY MCHC 34.1 32.0 - [facility] 35.7 gm/dL [facility] LABORATORY Platelets 197 145 - 357 [facility] x10(3)/[facility] LABORATORY RDWSD 46.4 (H) 36.0 - [facility] 45.0 [facility] LABORATORY RDWCV 14.5 (H) 11.4 - [facility] 13.8 % [facility] LABORATORY MPV 9.7 7.6 - 12.9 [facility] LABORATORY nRBC % Auto 0.0 % [facility] LABORATORY nRBC Abs Auto 0.000 0.000 - [facility] 0.000 [facility] x10(3)/[facility] LABORATORY Specimen Anatomical Collection Method Collection Time Receive d Time (Source) Location / / Volume Laterality Blood specimen 07/05/2017 4:55 PM 017 5:24 (specimen) EST PM EST Resulting Agency Comment Spec In Lab Daphne Shahid MD HEMATOLOGY ORDERABLES Performing Organization Address City/State/[place] [address] (ABNORMAL) Cardiac Enzymes (LEB/CGP) (07/05/2017 4:55 PM EST) P athologist Signature Troponin-T 1.69 (H) 0.00 - [facility] ng/mL [facility] LABORATORY Comment: The 99th percentile [...] additional sample may be indicated. Reference: Third [place] Definition of Myocardial Infarction. Journal of the [place] [employer] 2012;60:1581-98 CK, Total 191 0 - 200 unit/L [facility] LABORATORY Specimen Anatomical Collection Method Collection Time Receive d Time (Source) Location / / Volume Laterality Blood specimen 07/05/2017 4:55 PM 017 5:56 (specimen) EST PM EST Resulting Agency Comment Spec In Lab Daphne Shahid MD CHEMISTRY ORDERABLES Performing Organization Address City/[facility]/ZIP Code Phon e Number [address] (ABNORMAL) pro-Brain Natriuretic Peptide (07/05/2017 4:55 PM EST) athologist Signature ProBNP 1,598 (H) <=125 [facility] pg/mL [facility] LABORATORY Specimen Anatomical Collection Method Collection Time Receive d Time (Source) Location / / Volume Laterality Blood specimen 07/05/2017 4:55 PM 017 5:24 (specimen) EST PM EST Resulting Agency Comment Spec In Lab Daphne Shahid MD CHEMISTRY ORDERABLES Performing Organization Address City/[facility]/[place] [address] Magnesium (07/05/2017 4:55 PM EST) athologist Signature Magnesium 0.78 0.69 - 1.07 [facility] mmol/L [facility] LABORATORY Specimen Anatomical Collection Method Collection Time Receive d Time (Source) Location / / Volume Laterality Blood specimen 07/05/2017 4:55 PM 017 5:24 (specimen) EST PM EST Resulting Agency Comment Spec In Lab Daphne Shahid MD CHEMISTRY ORDERABLES Performing Organization Address City/[facility]/ZIP [facility] [place] [address] (ABNORMAL) Basic Metabolic Panel (non-fasting) (07/05/2017 4:55 PM EST) P athologist Signature Glucose Lvl 230 (H) 65 - 199 [facility] mg/dL [facility] LABORATORY Comment: Diabetes: >=200 mg/dL plus symp toms BUN 19 10 - 20 mg/dL [facility] LABORATORY Creatinine 1.04 0.80 - 1.50 [...] [facility] Estimated GFR >60 >=60 [facility] LABORATORY Comment: The reported eGFR should be multiplied b y 1.2 for patients. The MDRD is not an appropriate measure o f renal function for patients with body mass extremes or in patients with acute kidney failure. http://Glofox/DHnkdep http://Glofox/DHnkf Specimen Anatomical Collection Method Collection Time Receive d Time (Source) Location / / Volume Laterality Blood specimen 07/05/2017 4:55 PM 017 5:24 (specimen) EST PM EST Resulting Agency Comment Spec In Lab Daphne Shahid MD CHEMISTRY ORDERABLES Performing Organization Address City/State/[place] [address] (ABNORMAL) APTT (07/05/2017 4:55 PM EST) athologist Signature PTT 41 (H) 25 - 35 sec [facility] LABORATORY Comment: The recommended therapeutic range for fu ll dose, unfractionated heparin at [facility] is 80 ? 114 seconds. The [...] Shahid MD HEMATOLOGY ORDERABLES Performing Organization Address City/[facility]/[place] [address] (ABNORMAL) POCT Glucose (07/05/2017 4:53 PM EST) athologist Signature POC Glucose 208 (H) 65 - 199 [facility] mg/dL [facility] LABORATORY Comment: Supplemental ranges: <140 mg/dL before meals <180 mg/dL all other times of the day Specimen Anatomical Collection Method Collection Time Receive d Time (Source) Location / / Volume Laterality Blood specimen 07/05/2017 4:53 PM 017 4:53 (specimen) EST PM EST Daphne Shahid MD POINT OF CARE TEST ORDERABLE S Performing Organization Address City/[facility]/ZIP [facility] [place] [address] EKG 12 Lead (07/05/2017 4:32 PM EST) Component Value Ref Range Test Analysis Performed Pathologis t Method Time At Signature Ventricular rate 97 BPM MUSE SYSTEM Atrial Rate 97 BPM MUSE SYSTEM P-R Interval 148 ms MUSE SYSTEM QRS Duration 96 ms MUSE SYSTEM Q-T Interval 364 ms MUSE SYSTEM QTC Calculated 462 ms MUSE SYSTEM (Bezet) Calculated P [place] 48 degrees MUSE SYSTEM Calculated R [place] -33 degrees MUSE SYSTEM Calculated T [place] 98 degrees MUSE SYSTEM INTERPRETATION Normal sinus [...] Coronary atherosclerosis of unspecified type of vessel, [place] or graft Cardiomyopathy, ischemic Other specified forms [...] at 0239, Until Wed at 0321, STEPHANIE GODOY.: cabinet override AMIOdarone (CORDARONE) bolus from Bolus [...] post-op day 1 in the AM Give AL if unable to take PO, Routine Given [...] mg, Oral, EVERY EVENING, First dose on Wed07/05/17 at 2015, Until Discontinued, Routine Given 07/05/2017 [...] Ivis 07/08/17 at 0000, Last dose on Wed07/08/17 at 1600, Administer over 30 Minutes, Attach to 100 mL sodium Chloride Mini-bag Plus. Give first dose at 8 hours after dose in operating room., Indication for (Active or Suspected): Prophylaxis New 07/08/2017 8:08 AM EST 750 mg 200 mL/hr New Bag 07/08/2017 12:17 AM EST 750 mg 200 mL/hr chlorhexidine (PERIDEX) 0.12 % oral solution Given 9:22 AM EST 15 mLs 15 mL 15 mL, Oral, EVERY 12 HOURS SCHEDULED (2 times per day), First dose on Wed07/07/17 at 2100, Until Discontinued, [place] teeth, Routine Given 07/08/2017 10:06 PM EST [...] or norepinephrine is ineffective. Call pager # [phone] if initiated. Rate/Dose Change 07/08/2017 7:01 PM [...] Until Wed07/05/17 at 1711, PRIOR, YANET Deal: cabinet override heparin (porcine) injection 0-4,000 Given 07/07/2017 [...] mL/hr hyaluronidase (ovine) (VITRASE) injection 1-10 Given 1 09/13/2016 7:00 AM EST 1 mL mL [...] = 16 units), Routine Bolus from Bag 07/08/2017 3:01 AM EST 8 Units Bolus from 07/08/2017 2:04 AM EST 8 Units insulin regular human Bolus from 07/08/2017 4:54 AM EST 8 Units (HumuLIN;NovoLIN) 1 unit/mL 150 Units in sodium chloride 0.9%150 mL BOLUS 0-16 Units 0-16 Units, Intravenous, PER INSULIN PROTOCOL, Starting on Ivis 07/08/17 at 0427, Until [place] 07/11/17 at 0909, Per Protocol, BOLUS order. [...] doses, Starting on 07/10/17 at 1047, Until 07/10/17 at 1057, Elevated Heart Rate, for HR>120, please hold for SBP<90 or MAP<60. Given 07/10/2017 10:49 AM EST 2.5 mg meTOPROLOL (LOPRESSOR) injection 2.5 mg Given 07/10/2017 6:53 PM EST 2.5 mg 2.5 mg, Intravenous, EVERY 5 MIN PRN, 1 dose, Starting on Wed07/10/17 at 1845, Until Wed07/10/17 at 1853, Elevated Heart Rate, for HR>120, [...] (2 times per day), First dose on Wed07/10/17 at 2330, Until Discontinued, Routine Given 07/10/2017 [...] if phenyleprine and/or vasopressin ineffective.Call pager # [phone] if initiated., Routine Rate/Dose Change 07/09/2017 1:24 [...] 2.0 L/min/M2. Maximum volume 2 L. Call powerhouse tender for additional fluid orders: pager #[phone]. Rate/Dose Verify 07/08/2017 4:00 AM EST 100 [...] 0922 (Given - Provider: Myrna triplett RN) 400 mg, Oral, DAILY, First dose [...] post-op day 1 in the AM Give AL if unable to take PO, Routine atorvastatin (LIPITOR) tablet 40 mg 1611 (Given - Prov ider: More Luther RN) 1738 (Given - Provider: Em Jones RN) 40 mg, Oral, EVERY EVENING, First dose ( after last modification) on Wed07/09/17 at 1700, Until Discontinued, Routine ceFAZolin (ANCEF) 2g in dextrose 5% 100 mL 1756 (New B ag - Provider: Yanet Valdovinos, RN)1826 (Stopped - Provider: More Luther RN) 0125 (New Bag - Provider: Ale Rangel, VAMSI)0155 (Stopped - Provider: Ale Rangel RN)0901 (New Bag - Provider: Em Jones RN)0931 (Stopped - Provider: Em Jones, VAMSI)1738 (New Bag - Provider: Em Jones, VAMSI) 0143 (New Bag - Provider: Denice Jacobson, [...] RN) 20 mg, Oral, ONCE, 1 dose, On [...] each) 1-10 mL, Subcutaneous, ONCE, 1 dose, On Wed07/13/17 at 0645, Hyaluronidase is supplied in a 1-mL vial at a concentration of 200 units/mL. Dilute with 9 mL of normal saline. This yields the desired conc entration of 20 units/mL. Draw up 1 mL i ncrements of the diluted solution into a 1-mL syringe with a 26-g needle. Instill 0.2 -mL aliquots of the solution at least every 2 - 3 centimeters or five evenly spaced aliquots subcutaneously around t he periphery of the infiltrated area. Use a new 26-gauge needle for each injection. This is best done within one hour of the extravasation. Discard the remaining solution. , STAT hyaluronidase (ovine) (VITRASE) injection 1-10 mL (COMPLETED ) 0755 (Given - Provider: Portillo Jones RN - Comment: 10 evenly spaced injections throughout affected area -.2 ml each injection) 1-10 mL, Subcutaneous, ONCE, 1 dose, On Wed07/13/17 at 0745, Hyaluronidase is supplied in a 1-mL vial at a concentration of 200 units/mL. Dilute with 9 mL of normal saline. This yields the desired conc entration of 20 units/mL. Draw up 1 mL i ncrements of the diluted solution into a 1-mL syringe with a 26-g needle. Instill 0.2 -mL aliquots of the solution at least every 2 - 3 centimeters or five evenly spaced aliquots subcutaneously around t he periphery of the infiltrated area. Use a [...] Group 2) 0000 (Not Given - Provider: aCrmen Berry RN - Reason: Order parameters not [...] More Luther RN)1757 (Given - Provider: Yanet Valdovinos RN) 0842 (Given - Provider: Em Jones RN)1307 [...] Berry, VAMSI) 0615 (Given - Provider: Ale Rangel RN) 0530 (Gi cody - Provider: Denice Jacobson RN) 175 mcg, Oral, EVERY MORNING, First dose on Wed07/06/17 at 0600, Until Discontinued, Routine lisinopril (PRINIVIL;ZESTRIL) tablet 10 mg 09 (Given - Provider: Myrna Young RN) 10 mg, Oral, DAILY, First dose (after la st modification) on Wed07/14/17 at 0900, Until Discontinued, Routine lisinopril (PRINIVIL;ZESTRIL) tablet 5 mg (CANCELED) 0 827 (Given - Provider: More Luther RN) 0840 (Given - Provider: Em Jones, VAMSI) [...] More Luther RN)2201 (Given - Provider: Ale Rangel RN) 0615 (Given - Provider: Ale Rangel , VAMSI)1311 (Given - Provider: Em Jones, VAMSI) 12.5 mg, Oral, EVERY 8 HOURS SCHEDULED, First dose (after last modification) on Wed07/11/17 at 1400, Until Discontinued, Routine meTOPROLOL tartrate (LOPRESSOR) tablet 25 mg 2000 (Given - Provider: Denice Jacobson RN) 920 (Given - Provider: Myrna triplett RN) 25 mg, Oral, EVERY 12 HOURS SCHEDULED (2 times per day), First dose (after last modification) on 12/19/17 at 2100, Until Discontinued, Routine pantoprazole (PROTONIX) [...] RN) 20 mEq, Oral, ONCE, 1 dose, On Wed07/12/17 at 0845, Routine potassium chloride (K-DUR/KLOR-CON) extended release t ablet 20 mEq 1003 (Given - Provider: More Luther RN) 0841 (Given - Provider: Em Jones RN) 0922 (Given - Provider: Myrna Young RN) 20 mEq, Oral, DAILY, First dose on Wed09/12/16 at 1015, Until Discontinued, Routine potassium chloride (K-DUR/KLOR-CON) extended release tablet 40 mEq (COMPLETED) 0841 (Given - Provider: Em Jones RN) 40 mEq, Oral, ONCE, 1 dose, On 07/13 at 0745, 20 mEq tablet may be [...] RN) 2.5 mg, Oral, ONCE, 1 dose, On Wed07/13/17 at 1700, Routine warfarin (COUMADIN) tablet 2.5 mg 2.5 mg, Oral, ONCE, 1 dose, On Wed07/14/17 at 1700, Routine warfarin (COUMADIN) tablet 5 mg (COMPLETED) 1611 (Give n - Provider: More Luther RN) 5 mg, Oral, ONCE, 1 dose, On Wed07/12/17 at 1700, Routine Continuous Medication Order 07/12/2017 07/13/2017 07/14/2017 AMIOdarone (CORDARONE) 360 mg in dextrose 5% 200 mL in fusion () 0817 (New Bag - Provider: More Luther RN)1200 (Rate/Dose Change - Provider: More Luther RN)1951 (Rate/Dose Change - Provider: Elba Valverde, VAMSI - Comment: dose running at 0.5 at beginning of shift) 0721 (Stopped - Provider: Portillo Jones RN - Comment: iv ifiltrated =, see vasculkar access notes) 1 mg/min (33.3333 mL/hr, rounded to 33.3 mL/hr), Intravenous, CONTINUOUS, Starting on Wed07/11/17 at 0900, Until Wed07/13/17 at 1000, 1mg/min for 6hrs, then 0.5mg/min for 18hrs. After first 24hours, o 2018 (New Bag - Provider: Ale Rangel, VAMSI) rder maintenance dose 0.5 mg/min. Use in-line filter. PRN Medication Order 07/12/2017 07/13/2017 07/14/2017 acetaminophen (TYLENOL) tablet 1,000 mg 0544 (Given - Provider: Carmen Berry, VAMSI) 1,000 mg, Oral, EVERY 6 HOURS PRN, Start ing on Wed07/09/17 at 1509, Until Wed07/14/17 at 1639, Pain, Maximum dose of acetaminophen is 4000 mg from all sources in 24 hours., Routine bisacodyl (DULCOLAX) suppository 10 mg 10 mg, Rectal, DAILY PRN, Starting on Sa t 07/10/17 at 0000, Until Wed07/14/17 at 1639, [...] Oral, EVERY 4 HOURS PRN, Starti ng on Wed07/09/17 at 0900, Until Wed07/14/17 at 1639, Pain, Give 5 mg 1 tab PO Q 4 hours PRN for pain >/= to 3- 5/10., Give 5 mg 2 tabs PO Q 4 hours PRN for p ain >/= to 6-8/10., Give 5 mg 3 tabs PO Q 4 hours PRN for pain >/= to 9-10/10. , Give PO oxycodone before IV fentanyl bolus, Call provider for new pain management orders if pain not relieved after an appropriate amount of time or if reg imen is not tolerated. Hold if patient appears [...] post-op day 1 in the AM Give AL if unable to take PO
Routine Group [...]
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
--- OUTSIDE RECORDS SUMMARY | 2022-02-20 01:48 | XMS_ITS | Encounter Summary ---
:1945 [place] [address] Care Team Providers Name Role Phone Lovely Vicente MD Primary Care Provider Reason for Visit Auth/Cert Specialty Diagnoses / Procedures Referred By Contact Refer red To Contact Diagnoses STEMI (ST elevation myocardial infarction) NSTEMI STEMI Procedures CARDIAC CATHETERIZATION NAYE IPI Referral ID Status Reason Start Date Expiration Date Visits Requ ested Visits Authorized [id number] 1 1 Encounter Details Date Type Department Care Team Description 07/07/2017 Anesthesia Event Main Operating Room Yifan Jaime MD [facility] [place] [address] [facility] Ginny Mruray MD [facility] [place] [address] 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; Santiago Blade: 2; Notes: Asleep, [...] MD - 07/08/2017 5:08 PM EST [facility] Department of Anesthesiology Post-procedure Note Patient: Don Fatima Procedure Summary Date Anesthesia Start Anesthesia Stop Room / Location 07/07/17 1335 1836 [facility] OR [facility] MAIN OR Procedure Diagnosis Surgeon Responsible Provider @CABG, USING ARTERIAL GRAFT;SINGLE ARTERIAL GRAFT (WRVU 33.75) (N/A Chest); @CABG, TWO VENOUS GRAFTS & ARTERIAL GRAFT (WRVU 7.93) (N/A Chest); ENDOSCOPIC HARVEST VEIN(S) FOR CABG (WRVU 0.31) (Right Leg) (CAD) Yuan Freitas MD Hartman, Gregg S, MD All Anesthesia Providers: Anesthesiologist: Yifan Perez MD [employer] Consultant: Ginny Murray MD Most Recent Vitals: 07/08/17 [...] SETUP performed by Manny Mcknight MD at [facility] MAIN OR ??? PRO COLONOSCOPY, REMV LESN, SNARE 01/16/2014 COLONOSCOPY, POLYPECTOMY, REMOVAL LESION BY SNARE performed by Nohemi Jaimes MD at [facility] ENDOSCOPY ??? 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
--- OUTSIDE RECORDS SUMMARY | 2022-02-20 01:48 | XMS_ITS | Encounter Summary ---
:1945 Author Organization [facility] Address [facility] [place] [address] Care Team Providers Name Role Phone Lovely Vicente MD Primary Care Provider Reason for Visit Auth/Cert Specialty Diagnoses / Procedures Referred By Contact Refer red To Contact Diagnoses STEMI (ST elevation myocardial infarction) NSTEMI STEMI Procedures CARDIAC CATHETERIZATION NAYE IPI Referral ID Status Reason Start Date Expiration Date Visits Requ ested Visits Authorized [id number] 1 1 Encounter Details Date Type Department Care Team Description 07/07/2017 Surgery Main Operating Room Yuan Webber, @ CABG, USING ARTERIAL Barbara Ocampo MD GRAFT;SINGLE ARTERIAL Hospital [facility] GRAFT (WRVU 33.75) [facility] [place] [address] SURGERY [phone] [place], [place] [address] (Wo rk) Social History Tobacco [...] in this encounter Discharge Summaries Martha Teague, ASSISTANT SCIENTIST - 07/14/2017 9:38 AM EST Inpatient - Discharge Summary Patient Name: Gregory Hoang Patient Age: 72 y.o. Birthdate: 1945 Language: Niuean Race: White Ethnicity: Not nor Admit Date: [...] , @ 1:20p Patient to follow-up with Risk Engineer/heart failure team in one week. An appointment will be made for you. You may call [phone] Patient to follow-up with Cardiac Surgery, Dr. Yuan Webber, in ~ 4 weeks with CXR, EKG. Inpatient Provider Contact Information: [facility] Section of Cardiac Surgery [facility] [address] FAX [phone] Discharge Diagnoses (Hospital Problems) Primary Diagnoses: CAD [...] performed by Manny Mcknight MD at [facility] OR ??? PRO CABG, ARTERIAL, SINGLE N/A 07/07/2017 @CABG, USING ARTERIAL GRAFT;SINGLE ARTERIAL GRAFT (WRVU 33.75) performed by Yuan Webber MD at [facility] OR ??? PRO CABG, ARTERY-VEIN, TWO N/A 07/07/2017 @CABG, TWO VENOUS GRAFTS & ARTERIAL GRAFT (WRVU 7.93) performed by Yuan Webber MD at [facility] OR ??? PRO COLONOSCOPY, REMV LESN, SNARE 01/16/2014 COLONOSCOPY, POLYPECTOMY, REMOVAL LESION BY SNARE performed by Nohemi Jaimes MD at [facility] ENDOSCOPY ??? PRO ENDOSCOPY W/VIDEO-ASST VEIN HARVEST, CABG Right 07/07/2017 ENDOSCOPIC HARVEST VEIN(S) FOR CABG (WRVU 0.31) performed by Yuan Webber MD at [facility] OR ??? PRO THYROIDECTOMY 03/28/2013 THYROIDECTOMY, TOTAL OR COMPLETE performed by Manny Mcknight MD at [facility] OR Prior To Admission Medications Prescriptions Prior to Admission Medication Sig Dispense Refill Last Dose ??? levothyroxine (SYNTHROID) 175 mcg Tablet Take 1 tablet by mouth daily. 90 tablet 3 07/05/2017 [id number] ??? ascorbic acid, vitamin C, (VITAMIN C) [...] Hospital Course: Gregory Hoang was admitted to [facility] on 07/05/2017 via the Cardiology Service. During his hospital course, he was taken emergently to the rn cardiac cath for an ongoing STEMI. An IABP was [...] not take or discontinue any prescription or fvxk-dnm-injngws medications without asking your doctor or pharmacist [...] day to have your insulin doses adjusted. [facility] Endocrine clinic office Discharge Instructions: Call your doctor if: You have a fever of greater than 101 degrees, shaking chills, if you develop redness or drainage from your incision sites, or if you have questions. Please call your surgeon's office if you have any discharge or drainage from your chest incision. Your surgeon, Dr. Yuan Webber and/or the Cardiac Surgery Physician Camera Technician Team may be reached at . [...] Dr. Yuan Webber. You may use a [place] Track or treadmill but avoid any pulling [...] friends, go to a movie, go to advent, etc. Heavy activities: No hunting, skiing, jogging, snow shoveling, snowmobiling, lawn mowing, swimming, golf or tennis until after your return appointment with the surgeon. Do not ride motorcycles, [employer]'s tractors or horses. Avoid the use of [...] should resume a low fat, low cholesterol, [place] Heart [employer] Diet/Diabetic diet. Driving: No driving [...] , @ 1:20p Patient to follow-up with Risk Engineer/heart failure team in one week. Appointment will be made for you. You may call [phone] Patient to follow-up with Cardiac Surgery, Dr. Yuan Webber, in ~ 4 weeks with CXR, EKG. Cardiac Rehabilitation: Gregory Hoang was seen today regarding participation in the outpatient Phase 2 Cardiac Rehabilitation at [facility]. The patient agrees to a referral to this program. The referral will be sent at discharge and the patient should be contacted by the Program within 1- 2 weeks from discharge. ?? Future Appointments and Orders Future Appointments Provider Department Dept Phone 09/07/2017 3:00 PM LAB, THREE L Lab 3L [facility] [phone] 09/07/2017 4:00 PM Luz Prescott MD Endocrinology at [facility] [phone] Future Orders Complete By Expires EKG 12 Lead [EKG1 Custom] 08/14/2017 02/13/2018 Process Instructions: Scheduling Instructions: Questions: Which DH location will this be performed?: [place] Is a rhythm strip needed?: No If EKG Reason is Pre-op Evaluation, indicate diagnosis for surgery.: XR Chest PA & Lateral (Generic) [21602 [id number] Custom] 08/14/2017 02/13/2018 Process Instructions: Scheduling Instructions: Questions: Where will study be performed?: [facility] Portable exam?: Reason for exam and clinical history: CABG x 3 Other pertinent information: Stat read required?: Date of injury if applicable: Requested Time: Referral to Cardiac Rehab [SCP019 Custom] As directed Process Instructions: If no progress note charted, please enter Clinical details in comments. Scheduling Instructions: Questions: My question or request is: s/p CABG. Cardiac rehab at [facility] Referral to Home Health - at DISCHARGE [JLA1563 CPT(R)] As directed Process Instructions: Scheduling Instructions: Comments: DOCUMENTATION FOR VNA SERVICES (INCLUDING THOSE PATIENTS WITH MEDICARE COVERAGE REQUIRING HOME VNA SERVICES AND/OR HOSPICE SERVICES) PATIENT'S LOCATION: Gregory Hoang [address] [place] [address] [place] [phone] (home) Telephone Information: Hotel Maintenance Worker's Name: self In discussion with the attending physician, it is certified that this patient is under their care and that they, or a Nurse Practitioner, or Physician Camera Technician who is working directly with them, [...] [facility] ([facility] [place] [facility] in [place] PHONE: [phone] FAX: [phone] RN orders: Cardiopulmonary assessment, incisional assessment, assess vital signs, assessment of rehab progress, medication management and effectiveness, home safety evaluation. Please draw INR if indicated and send result to:Dr Vicente [phone] PT ORDERS: Continue rehab for endurance, gait stability and strength with mobility and transfers. Home safety evaluation. Home exercise program if appropriate. Start of Care Date:24-48 hours after discharge SPECIAL INSTRUCTIONS: For any follow up questions, needs, or issues please call the Cardiac Surgery Office at [phone] FOR MEDICARE ONLY: (please delete this section [...] noted. Questions: Agency name and contact information: [facility] Patient location post discharge: home What services are requested: Registered Nurse Physical Therapy Start date: Responsible MD post discharge contact info: PCP Arrangements for VNA/home care: As above. VN RN OR PCP TO PLEASE REMOVE CHEST TUBE SUTURES ON OR AFTER 07/17/2017 Signed: Martha Teague APRN [facility] Section of Cardiac Surgery [facility] [address] FAX [phone] Date: 07/14/2017 CC: MD Ivania Cr Betsy, PA [address] [place] [phone] documented in this encounter Discharge Instructions Discharge [...] day to have your insulin doses adjusted. [facility] Endocrine clinic office Patient InstructionsStMartha mcdonald APRN [...] not take or discontinue any prescription or kfjk-dbx-pxnbrco medications without asking your doctor or pharmacist [...] day to have your insulin doses adjusted. [facility] Endocrine clinic office ? Discharge Instructions: ?? Call your doctor if: You have a fever of greater than 101 degrees, shaking chills, if you develop redness or drainage from your incision sites, or if you have questions. Please call your surgeon's office if you have any discharge or drainage from your chest incision. Your surgeon, Dr. Yuan Webber and/or the Cardiac Surgery Physician Camera Technician Team may be reached at . [...] Dr. Yuan Webber. You may use a [place] Track or treadmill but avoid any pulling [...] friends, go to a movie, go to advent, etc. ?? Heavy activities: No hunting, skiing, jogging, snow shoveling, snowmobiling, lawn mowing, swimming, golf or tennis until after your return appointment with the surgeon. Do not ride motorcycles, [employer]'s tractors or horses. Avoid the use of [...] should resume a low fat, low cholesterol, [place] Heart [employer] Diet/Diabetic diet. ?? Driving: No [...] @ 1:20p ?? Patient to follow-up with Risk Engineer/heart failure team in one week. An appointment has been made for you, you can call [phone] ?? Patient to follow-up with Cardiac Surgery, Dr. Yuan Webber, in ~ 4 weeks with CXR, EKG. ? Cardiac Rehabilitation: Gregory Hoang??was seen today regarding participation in the outpatient Phase 2 Cardiac Rehabilitation at [facility]. ?? The patient agrees to a referral to this program.? The referral will be sent at discharge and the patient should be contacted by the Program within 1- 2 weeks from discharge. ? Future Appointments and Orders Future Appointments Provider Department Dept Phone ?? 09/07/2017 3:00 PM LAB, THREE L Lab 3L [facility] [phone] ?? 09/07/2017 4:00 PM Luz Prescott MD Endocrinology at [place] [phone] Future Orders Complete By Expires ?? EKG 12 Lead [EKG1 Custom] 08/14/2017 02/13/2018 ?? Process Instructions: ? Scheduling Instructions: ? Questions: ? Which location will this be performed?: [facility] ?? Is a rhythm strip needed?: No ?? If EKG Reason is Pre-op Evaluation, indicate diagnosis for surgery.: ?? XR Chest PA & Lateral (Generic) [[id number] Custom] 08/14/2017 02/13/2018 ?? Process Instructions: ? Scheduling Instructions: ? Questions: ? Where will study be performed?: [facility] ?? Portable exam?: ?? Reason for exam and clinical history: CABG x 3 ?? Other pertinent information: ?? Stat read required?: ?? Date of injury if applicable: ?? Requested Time: ?? Referral to Cardiac Rehab [PYC789 Custom] As directed ? Process Instructions: ?? If no progress note charted, please enter Clinical details in comments. ?? Scheduling Instructions: ? Questions: ? My question or request is: s/p CABG. Cardiac rehab at [facility] ? Arrangements for VNA/home care: As [...] - 07/14/2017 2:34 PM EST The patient/medical collections representative has been provided a list of Home Health Agencies/DME vendors which serve their preferred geographic area. A letter describing our affiliations was reviewed with them and theywere educated about their right to choose where referrals are placed. Patient requests referral to [facility]. PHONE: [phone] FAX: [phone] Expected date of discharge: 07/14 Referral routed to the Website Project Manager for matching with agency/vendor and to provide [...] day to have your insulin doses adjusted. [facility] Endocrine clinic office Kathie Carrera APRN [facility] Endocrinology Diabetes Management Pager [phone] minutes of this 35 minute visit was spent with the patient in counseling on diabetes and treatment plan, reviewing all glucose and insulin data as well as relevant laboratory results with the patient, and coordination of care on the inpatient unit including nursing and primary team. Zulma Power RN - 07/14/2017 10:30 AM EST The patient/medical collections representative has been provided a list of Home Health Agencies/DME vendors which serve their preferred geographic area. A letter describing our affiliations was reviewed with them and theywere educated about their right to choose where referrals are placed. Patient requests referral to : Yasmani Munguia ([facility] [place] [facility]-is in [place] PHONE: [phone] FAX: [phone]. Expected date of discharge: 07/14/17 Referral routed to the Website Project Manager for matching with agency/vendor and to provide [...] #6 s/p CABG X3. FSBG 80 at [place], reports no symptoms but did drink some [...] Will continue to follow Katerin Azul APRN [facility] Endocrinology Diabetes Management Pager [phone] 15 minutes of this 25 minute visit [...] of infiltration/extravasation Discussed plan of care with TEST FACILITY ENGINEER and RN. Elevate exrtemity and apply intermittent Warm compresses. Name of MD contacted Dr. Shaw Brown 07/13/2017 @ 0601 Name of RN contacted Ale Rangel RN Name of Pharmacist if consulted NA Name of Plastics MD ( if consulted) NA (Mandatory photo for infiltrations/ extravasations scoring a stage 2 or greater, but recommended forstage 1)( include measuring tape and identifier in the photo) COP CARING FOR THIS PATIENT WILL CONTINUE TO [...] measuring tape and identifier in the photo) COP CARING FOR THIS PATIENT WILL CONTINUE TO [...] regard to both infiltrates addressed by this writer technical publications.All of MrMadiha Hoang's responses were entirely appropriate. Images of infiltrates attached here. L Martha Teague, ASSISTANT SCIENTIST - 07/13/2017 8:01 AM EST Cardiac Surgery Progress Note: ID: [id number] 72 year old male POD#6 s/p CABGx3 [...] ?? I have met with the patient/medical collections representative to discuss discharge planning needs. I have provided the [facility], Office of Care Management letter from the Senior Sharepoint Architect pertaining to rehab referrals. I have also provided a letter describing our affiliations within the [facility] and educated them about their right to choose where referrals are placed. ?? I reviewed the different levels of rehab including SNF, swing, acute and LTAC with the patient/medical collections representative. ?? The patient/medical collections representative has been provided a list of facilities within their preferred geographic area. ?? I have requested that the patient/medical collections representative provide at least three choices for referral. ?? The patient/medical collections representative have requested referrals to: ?? [facility]. [facility] ?? 2. [facility] ?? 3. More to be entered ?? Expected date of discharge: 07/14 Note routed to Website Project Manager who will communicate referrals to facilities and [...] hours. If BG remains greater than 240, lisaph99 units (no more than three times) & [...] Will continue to follow Katerin Azul APRN [facility] Endocrinology Diabetes Management Pager [phone] 20 minutes of this 35 minute visit was spent with the patient in counseling on diabetes and treatment plan, reviewing all glucose and insulin data as well as relevant laboratory results with the patient, and coordination of care on the inpatient unit including nursing and primary team. Makayla Stevenson APRN - 07/12/2017 9:52 AM EST Cardiac Surgery Progress Note: ID: [id number] 72 year old male POD#5 s/p CABGx3 [...] 07/11/2017 7:18 PM EST Patient arrived from [facility]. VSS. MSI dressing pulled off with [...] hours. If BG remains greater than 240, rfjfwu18 units (no more than three times) & [...] AM EST Cardiac Surgery Progress Note: ID: [id number] 72 year old male POD#4 s/p CABGx3 [...] hours. If BG remains greater than 240, kxxcye06 units (no more than three times) & [...] AM EST Cardiac Surgery Progress Note: ID: [id number] 72 year old male POD#3 s/p CABGx3 [...] Gas) No results found for: PHART, PO2ART, ZJG3HUK Assessment/Plan: 72 year old male POD#3 s/p [...] Mami Thao - 07/09/2017 6:29 PM EST Bulk Fluids Handler Encounter Note Patient Name: Gregory Hoang : [id number] MR#: [id number] Admit Date: 07/05/2017 4:20 PM Hospital Day 4 days Narrative: Patient was sitting in chair, hugging heart pillow, opened his eyes, nodding to come into room Assessment: Patient was sleepy. Intervention and Outcome: Introduced molecular modeler services and patient reached his hand out in appreciation. Follow-up: Bulk Fluids Handler remains available for support. Time in Direct [...] 07/09/2017 10:45 AM EST Report given to chief of staff doctor to cover care Maddison Cee PA - 07/09/2017 9:00 AM EST Cardiac Surgery Progress Note: ID: [id number] 72 year old male POD#2 s/p CABGx3 [...] completed shifts: In: 7977.4 [I.V.:7477.4; Other:500] Out: 0315 [Urine:3000; Other:615] I- 4 L O- 2.7 [...] Attending Surgeon on rounds. Signed: STEPHANIE Iqbal [facility] Section of Cardiac Surgery Date: [...] when IABP d/c'ed. Gretchen Carolina, PT Pager [phone] Maddison Cee PA - 07/08/2017 11:27 AM EST Cardiac Surgery Progress Note: ID: [id number] 72 year old male POD#1 s/p CABGx3 [...] Attending Surgeon on rounds. Signed: STEPHANIE Iqbal [facility] Section of Cardiac Surgery Date: [...] in place in R femoral. No hematoma. GOLD MINER- Intact Psych- Anxious Skin- Dry, no peripheral [...] intact. IABP in place in R femoral. GOLD MINER- Intact Psych- Anxious Skin- Dry, no peripheral [...] pending CABG - hold metformin - f/u [facility] ?? #Home Meds - continue [...] note for details. DAPHNE SHAHID MD Pager [phone] Jet Mckenna MD - 07/05/2017 6:48 PM EST Preliminary Cardiac Catheterization Procedure Note: Procedure(s) performed: Left heart cath, IABP insertion Access: Right INSULATOR APPRENTICE-->8fr IABP A time-out was conducted prior to [...] effect. Heparin gtt maintained. Pt transferred to rn cardiac cath. documented in this encounter H&P Notes Daphne Shahid MD - 07/05/2017 6:08 PM EST CARDIOLOGY HISTORY & PHYSICAL EXAM Date of Admission: 07/05/2017 ( Hospital Day 0 days ) Responsible Attending: Daphne Shahid MD PCP: Lovely Vicente MD PCP#: [phone] Patient Active Problem List Diagnosis Code ??? [...] load with heparin drip and transferred to [facility]. While there, continued sob, question of chest pain. Stat TTE showing WMA diffusely and EF around 20%. No significant valvular disease. Taken to the rn cardiac cath urgently for ongoing STEMI. [facility] Labs: INR 1.0 WBC 5.88 Hgb [...] monitor I/O - s/p lasix in the rn cardiac cath, redose to aim net neg 1L by [...] Medicine, PGY-2 Cardiology S1, Team Pager # [phone] CARDIOLOGY ATTENDING NOTE Patient: Gregory Hoang Date [...] amenable for PCI. DAPHNE SHAHID MD Pager [phone] documented in this encounter Miscellaneous Notes Consult Note - Daphne Shahid MD - 07/14/2017 11:46 AM EST Heart Failure Service Inpatient Consult Note Gregory Hoang Date of : 1945 Age: 72 y.o. Today's date: 07/14/17 PCP: Lovely Vicente MD CODE OFFICIAL: None Place of Service: C451-A Reason for Consult: Dr. Webber has requested consultation regarding systolic heart failure management. HPI: Mr. Hoang is a 72 year-old man with history of hypertension, hyperlipidemia, IDDM2, MAIRA VICTORIA on CPAP who was admitted on [...] performed by Manny Mcknight MD at [facility] OR ??? PRO CABG, ARTERIAL, SINGLE N/A 07/07/2017 @CABG, USING ARTERIAL GRAFT;SINGLE ARTERIAL GRAFT (WRVU 33.75) performed by Yuan Webber MD at [facility] OR ??? PRO CABG, ARTERY-VEIN, TWO N/A 07/07/2017 @CABG, TWO VENOUS GRAFTS & ARTERIAL GRAFT (WRVU 7.93) performed by Yuan Webber MD at [facility] OR ??? PRO COLONOSCOPY, REMV LESN, SNARE 01/16/2014 COLONOSCOPY, POLYPECTOMY, REMOVAL LESION BY SNARE performed by Nohemi Jaimes MD at [facility] ENDOSCOPY ??? PRO ENDOSCOPY W/VIDEO-ASST VEIN HARVEST, CABG Right 07/07/2017 ENDOSCOPIC HARVEST VEIN(S) FOR CABG (WRVU 0.31) performed by Yuan Webber MD at [facility] OR ??? PRO THYROIDECTOMY 03/28/2013 THYROIDECTOMY, TOTAL OR COMPLETE performed by Manny Mcknight MD at [facility] MAIN OR Outpt Meds: Current Outpatient [...] following studies: EKG 07/14/17: NSR 75 bpm, BATCHMAKER anterior infarct, LAD CXR 07/11/17: FINDINGS: Sternotomy wires. The patient has been extubated, left chest tube removed, and Quincy-Suzi catheter removed since the 07/07/2017 study. Atelectasis [...] was discussed with Zehra. Jaden Kelley MD Training Officer Pager [phone] CARDIOLOGY ATTENDING NOTE Patient: Gregory Hoang Date [...] heart failure clinic. DAPHNE SHAHID MD Pager [phone] Plan of Care - Alden Chavarria, FRAME WIRER - 07/14/2017 11:35 AM EST Problem: Patient [...] Disposition: home with assist Alden Jorge Genikevin, FRAME WIRER Pager: [phone] Inpatient Physical Therapy Problem: Acute Rehab Services [...] sit/sit to supine -- Bed Mobility Goal, [place] Level supervision required -- Bed Mobility Goal, [...] - 3 days -- Gait Training Goal, [place] Level supervision required -- Gait Training Goal, [...] days -- Transfer Training Goal, Activity Type wrj-aa-wgmuy/vbbcm-uf-kku;ahy-wm-ucuis/woqjo-zw-idg;toilet -- Transfer Train Goal, [place] Level supervision required -- Transfer Training Goal, [...] keeping present for 2 days per family. Insulation Applicator noted of frustrations, house keeping sent to room. Patient offered showered twice, refused. at bedside, frustrated that shower not complete, informed that patient had refused several times. requesting to see MANAGER LABOR RELATIONS, paged sent to Martha, will come to bedside (middle of consult). not willing to wait, Martha notified that family had gone home. Encouraged to come for morning rounds a t 8am. Diabetes team at bedside - insulin adjustments made. Call cabello in reach. Continue to monitor. PLAN MOVING FORWARD: Ambulate, dressing changes BID, Please change drsg at 4am per Martha MANAGER LABOR RELATIONS request. INDIVIDUALIZED FALL PREVENTION INTERVENTIONS: Patient-specific fall [...] levels on the lower side, 60ml of [place] juice given after a FS of 80. [...] Conf 07/13/17 0502 Interdisciplinary Rounds/Family Conf Participants employment case manager;dietitian/nutrition services;nursing;occupational therapy;patient;pharmacy;physical therapy;physician Plan of [...] Anticipated Discharge Disposition: home with assist Pager: [phone] CLARISSA SEGAL, PT 07/12/2017 Physical Therapy Rehabilitation [...] to sit/sit to supine Bed Mobility Goal, [place] Level supervision required Bed Mobility Goal, Additional Goal adheres to psternal precautions for transfer Goal: Gait Training Goal Stand Alone Therapy Goal Outcome: Ongoing (Interventions Implemented as Appropriate) 07/12/17 1225 Gait Training Goal Gait Training Goal, Date Established 07/12/17 Gait Training Goal, Time to Achieve 2 - 3 days Gait Training Goal, [place] Level supervision required Gait Training Goal, Assist [...] 3 days Transfer Training Goal, Activity Type jrj-jf-uzjfm/bmftt-jy-iya;bqd-oq-umplb/iqhug-ap-emy;toilet Transfer Train Goal, [place] Level supervision required Transfer Training Goal, Additional Goal adheres to sternal precautions during transfer Consult Note - Octavia Vaughn RN - 07/12/2017 10:50 AM EST [facility] CARDIAC REHABILITATION Gregory Hoang was seen today regarding participation in the outpatient Phase 2 Cardiac Rehabilitation at [facility]. The patient agrees to a referral [...] IV site, amio to other piv and TOBACCO PREVENTION HEALTH EDUCATOR at bedside to help assess, IV removed. [...] staff, he stood and marched in place. Constantine weak, wanting to sit back down. Remained [...] Health/Prescription Coverage: Primary Insurance: MEDICARE Secondary Insurance: [facility] [place] Prescription Coverage: yes Preferred Pharmacy: [facility] [place] Other: none Primary Care Provider: Lovely Vicente MD [phone] Patient/Caregiver Goals of Treatment:live and get my breath back Potential Needs for Transition of Care: Rehab/SNF: [facility] Home Health: NA DME: TBD Dialysis: na Community Resources: available Transportation: yes Other: none Anticipated Barriers to Discharge/Special Considerations: none Plan: Likely SNF Rehab before home A member of the Care Management team will continue to monitor progress, follow for continuity of care and assist with transition of care planning. ERLIN Weiss Pager: [phone] Consult Note - Katerin Azul RN - [...] management and to provide a review of animal impersonator diabetes care. Diabetes History: Gregory Hoang has [...] potential to d/c gtt and start CF. detention diabetes care: Medications - Outpatient treatment regimen recommendations pending based on the hospital course. Monitoring - continue BG tid ac & hs Diet - low fat/low carb diet Exercise - weight-bearing exercise 30 min/day, as tolerated Thank you for allowing us to provide care for your patient W/E coverage, Dr. Jeane Tatum, pager [phone] Katerin Azul APRN Endocrinology Diabetes Management Pager [phone] Plan of Care - Walt Stephanie Wyatt [...] Webber MD - 07/07/2017 6:27 PM EST [facility] Operative Note Patient Name: Gregory Hoang : [id number] MR#: [id number] Case Date: 07/07/2017 Surgeon: Surgeon(s) and Role: * Yuan Webber MD - Primary * Michael Drake PA - Physician Camera Technician * Linda Flores PA - Physician Camera Technician Preoperative diagnosis: 3VD Postoperative diagnosis: CAD, [...] Operative Note Patient Name: Gregory Hoang : [id number] MR#: [id number] Case Date: 07/07/2017 Surgeon: Surgeon(s) and Role: * Yuan Webber MD - Primary * Michael Drake PA - Physician Camera Technician * Linda Flores PA - Physician Camera Technician Preoperative diagnosis: 3VD Postoperative diagnosis: CAD, [...] code status: Full Code Katty Hahn, MS3 [facility] Cardiology S1 (Pager [phone]) Plan of Care - Emelia Ibarra RN [...] SETUP performed by Manny Mcknight MD at [facility] MAIN OR ??? PRO COLONOSCOPY, REMV LESN, SNARE 01/16/2014 COLONOSCOPY, POLYPECTOMY, REMOVAL LESION BY SNARE performed by Nohemi Jaimes MD at [facility] ENDOSCOPY ??? PRO THYROIDECTOMY 03/28/2013 THYROIDECTOMY, TOTAL OR COMPLETE performed by Manny Mcknight MD at [facility] MAIN OR Social History: Social History [...] with other involved physicians Yuan Webber MD [phone] Med Student Progress Note - Katty Hahn [...] or BiPAP - s/p lasix in the rn cardiac cath, was net -1.5L - s/p plavix load, [...] FULL - Dispo: CVCC Katty Hahn, M3 [facility] Cardiology S1 (Pager [phone]) Plan of Care - Stephanie Godoy RN - 07/06/2017 5:00 AM EST Problem: Patient Care Overview Goal: Plan of Care Review 07/06/17 [id number] Coping/Psychosocial Plan Of Care Reviewed With patient;family [...] in urinal without difficulty. Lasix given in rn cardiac cath, 1.4 L out at this time. Pt [...] that time. Plan of Care - Kim aGlindo MD - 07/05/2017 5:52 PM EST Images [...] [facility] C[facility]Y [place], [place] 0[address] (Wo rk) Scheduled Orders Name Type [...] procedure are i n the results section. 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 TYPE AND SCREEN Routine 07/06/2017 12:00 ([facility]/SHANDA) PM EST APTT STAT 07/06/2017 11:24 Results [...] Routine 07/06/2017 8:10 Results f or this ([facility]) AM EST procedure are i n the [...] Routine 07/06/2017 2:20 Results f or this ([facility]) AM EST procedure are i n the [...] Routine 07/05/2017 8:20 Results f or this ([facility]) PM EST procedure are i n the [...] Timed 07/05/2017 4:55 Results f or this ([facility]) PM EST procedure are i n the [...] EXAMINATION: XR CHEST PA AND LATERAL ([employer]) CLINICAL HISTORY: CABG x 3 TECHNIQUE: PA [...] Teague APRN IMG DX ORDERABLES SCAN DOC: INFANT ROOM TEACHER (07/15/2017 12:00 AM EST) Narrative 07/15/2017 12:00 [...] Signature POC Glucose 186 65 - [address] [facility] mg[facility]dL [facility] Comment: Supplemental ranges: <140 mg/dL before meals <180 mg/dL all other times of the day Specimen Anatomical Collection Method Collection Time Receive d Time (Source) Location / / Volume Laterality Blood specimen 07/14/2017 11:56 7 (specimen) AM EST 11:56 AM EST Yuan Webber MD POINT OF CARE TEST ORDERABLE S Performing Organization Address City/State/[place] [address] POCT Glucose (07/14/2017 7:52 AM EST) athologist Signature POC Glucose 126 65 - [address] [facility] mg/dL [facility] Comment: Supplemental ranges: <140 mg/dL before meals <180 mg/dL all other times of the day Specimen Anatomical Collection Method Collection Time Receive d Time (Source) Location / / Volume Laterality Blood specimen 07/14/2017 7:52 AM 017 7:52 (specimen) EST AM EST Yuan Webber MD POINT OF CARE TEST ORDERABLE S Performing Organization Address City/State/ZIP Code Phon e Number [address] (ABNORMAL) Prothrombin Time (07/14/2017 4:46 AM EST) athologist [facility] PT 26.4 (H) 11.8 - 14.0 [place] [...] Wilson APRN HEMATOLOGY ORDERABLES Performing Organization Address City/[facility]/[place] [address] Potassium (07/14/2017 4:46 AM EST) [facility] Potassium 4.3 3.5 - 5.0 [facility] mmol/L [facility] Comment: Please note: ??Patients [...] Comment Spec In Lab Makayla Dejesusfield STACIE CHEMISTRY ORDERABLES Performing Organization Address City/State/ZIP [facility] [place] [address] POCT Glucose (07/14/2017 4:34 AM EST) athologist Signature POC Glucose 115 65 - 199 [place] mg/dL [facility] Comment: Supplemental ranges: <140 mg/dL before meals <180 mg/dL all other times of the day Specimen Anatomical Collection Method Collection Time Receive d Time (Source) Location / / Volume Laterality Blood specimen 07/14/2017 4:34 AM 017 4:34 (specimen) EST AM EST Yuan Webber MD POINT OF CARE TEST ORDERABLE S Performing Organization Address City/State/ZIP Code Phon e Number [address] POCT Glucose (07/13/2017 11:33 PM EST) athologist Signature POC Glucose 132 65 - 199 [place] mg/dL [facility] Comment: Supplemental ranges: <140 mg/dL before meals <180 mg/dL all other times of the day Specimen Anatomical Collection Method Collection Time Receive d Time (Source) Location / / Volume Laterality Blood specimen 07/13/2017 11:33 7 (specimen) PM EST 11:33 PM EST Yuan Webber MD POINT OF CARE TEST ORDERABLE S Performing Organization Address City/State/ZIP Code Phon e Number [address] POCT Glucose (07/13/2017 9:25 PM EST) athologist Signature POC Glucose 121 65 - 199 [place] mg/dL [facility] Comment: Supplemental ranges: <140 mg/dL before meals <180 mg/dL all other times of the day Specimen Anatomical Collection Method Collection Time Receive d Time (Source) Location / / Volume Laterality Blood specimen 07/13/2017 9:25 PM 017 9:25 (specimen) EST PM EST Yuan Webber MD POINT OF CARE TEST ORDERABLE S Performing Organization Address City/State/ZIP Code Phon e Number [address] POCT Glucose (07/13/2017 4:55 PM EST) athologist Signature POC Glucose 79 65 - 199 [place] mg/dL [facility] Comment: Supplemental ranges: <140 mg/dL before meals <180 mg/dL all other times of the day Specimen Anatomical Collection Method Collection Time Receive d Time (Source) Location / / Volume Laterality Blood specimen 07/13/2017 4:55 PM 017 4:55 (specimen) EST PM EST Yuan Webber MD POINT OF CARE TEST ORDERABLE S Performing Organization Address City/State/ZIP Code Phon e Number [address] POCT Glucose (07/13/2017 11:16 AM EST) P athologist Signature POC Glucose 163 65 - [address] [facility] mg/dL [facility] Comment: Supplemental ranges: <140 mg/dL before meals <180 mg/dL all other times of the day Specimen Anatomical Collection Method Collection Time Receive d Time (Source) Location / / Volume Laterality Blood specimen 07/13/2017 11:16 7 (specimen) AM EST 11:16 AM EST Yuan Webber MD POINT OF CARE TEST ORDERABLE S Performing Organization Address City/State/ZIP Code Phon e Number [address] POCT Glucose (07/13/2017 8:07 AM EST) P athologist Signature POC Glucose 96 65 - [address] [facility] mg/dL [facility] Comment: Supplemental ranges: <140 mg/dL before meals <180 mg/dL all other times of the day Specimen Anatomical Collection Method Collection Time Receive d Time (Source) Location / / Volume Laterality Blood specimen 07/13/2017 8:07 AM 017 8:07 (specimen) EST AM EST Yuan Webber MD POINT OF CARE TEST ORDERABLE S Performing Organization Address City/State/ZIP Code Phon e Number [address] (ABNORMAL) Prothrombin Time (07/13/2017 [...] Wilson STACIE HEMATOLOGY ORDERABLES Performing Organization Address City/State/[place] [address] (ABNORMAL) Basic Metabolic Panel (non-fasting) (07/13/2017 4:26 AM EST) athologist Signature Glucose Lvl 95 65 - 199 [facility] mg/dL [facility] Comment: Diabetes: >=200 mg/dL plus symp toms BUN 25 (H) 10 - 20 mg/dL [facility] Creatinine 1.19 0.80 - 1.50 mg/dL [facility] Sodium 143 135 - 145 mmol/L [facility] Potassium 3.7 3.5 - 5.0 mmol/L [facility] [...] 15 mmol/L [facility] Calcium 7.7 (L) 8.5 - 10.5 mg/dL [facility] Estimated GFR 60 >=[address] [facility] Comment: The reported eGFR should be multiplied b y 1.2 for patients. The MDRD is not an appropriate measure o f renal function for patients with body mass extremes or in patients with acute kidney failure. http://[employer]/DHnkdep http://[employer]/DHMCnkf Specimen Anatomical Collection Method Collection Time Receive d Time (Source) Location / / Volume Laterality Blood specimen 07/13/2017 4:26 AM 017 4:46 (specimen) EST AM EST Resulting Agency Comment Spec In Lab Makayla Wilson APRN CHEMISTRY ORDERABLES Performing Organization Address City/[facility]/ZIP [facility] Phon e Number [address] POCT Glucose (07/13/2017 3:52 AM EST) P athologist Signature POC Glucose 93 65 - 199 [facility] mg/dL [facility] Comment: Supplemental ranges: <140 mg/dL before meals <180 mg/dL all other times of the day Specimen Anatomical Collection Method Collection Time Receive d Time (Source) Location / / Volume Laterality Blood specimen 07/13/2017 3:52 AM 017 3:52 (specimen) EST AM EST Yuan Webber MD POINT OF CARE TEST ORDERABLE S Performing Organization Address City/[facility]/ZIP Code Phon e Number [address] POCT Glucose (07/13/2017 12:21 AM EST) athologist Signature POC Glucose 80 65 - 199 [facility] mg/dL [facility] Comment: Supplemental ranges: <140 mg/dL before meals <180 mg/dL all other times of the day Specimen Anatomical Collection Method Collection Time Receive d Time (Source) Location / / Volume Laterality Blood specimen 07/13/2017 12:21 7 (specimen) AM EST 12:21 AM EST Yuan Webber MD POINT OF CARE TEST ORDERABLE S Performing Organization Address City/State/ZIP Code Phon e Number [address] POCT Glucose (07/12/2017 8:22 PM EST) athologist Signature POC Glucose 119 65 - 199 [place] mg/dL [facility] Comment: Supplemental ranges: <140 mg/dL before meals <180 mg/dL all other times of the day Specimen Anatomical Collection Method Collection Time Receive d Time (Source) Location / / Volume Laterality Blood specimen 07/12/2017 8:22 PM 017 8:22 (specimen) EST PM EST Yuan Webber MD POINT OF CARE TEST ORDERABLE S Performing Organization Address City/State/ZIP Code Phon e Number [address] POCT Glucose (07/12/2017 4:02 PM EST) athologist Signature POC Glucose 114 65 - 199 [place] mg/dL [facility] Comment: Supplemental ranges: <140 mg/dL before meals <180 mg/dL all other times of the day Specimen Anatomical Collection Method Collection Time Receive d Time (Source) Location / / Volume Laterality Blood specimen 07/12/2017 4:02 PM 017 4:02 (specimen) EST PM EST Yuan Webber MD POINT OF CARE TEST ORDERABLE S Performing Organization Address City/State/ZIP Code Phon e Number [address] POCT Glucose (07/12/2017 11:28 AM EST) athologist Signature POC Glucose 164 65 - 199 [facility] mg/dL [facility] Comment: Supplemental ranges: <140 mg/dL before meals <180 mg/dL all other times of the day Specimen Anatomical Collection Method Collection Time Receive d Time (Source) Location / / Volume Laterality Blood specimen 07/12/2017 11:28 7 (specimen) AM EST 11:28 AM EST Yuan Webber MD POINT OF CARE TEST ORDERABLE S Performing Organization Address City/State/ZIP Code Phon e Number [address] POCT Glucose (07/12/2017 7:34 AM EST) athologist Signature POC Glucose 109 65 - 199 [facility] Comment: Supplemental ranges: <140 mg/dL before meals <180 mg/dL all other times of the day Specimen Anatomical Collection Method Collection Time Receive d Time (Source) Location / / Volume Laterality Blood specimen 07/12/2017 7:34 AM 017 7:34 (specimen) EST AM EST Yuan Webber MD POINT OF CARE TEST ORDERABLE S Performing Organization Address City/State/[place] [address] (ABNORMAL) Basic Metabolic Panel (non-fasting) (07/12/2017 4:11 AM EST) athologist Signature Glucose Lvl 92 65 - 199 [facility] mg/dL [facility] Comment: Diabetes: >=200 mg/dL plus symp toms BUN 31 (H) 10 - 20 mg/dL [facility] Creatinine 1.23 0.80 - 1.50 mg/dL [facility] Sodium 145 135 - 145 mmol/L [facility] Potassium Not Perf 3.5 - 5.0 mmol/L [facility] Comment: Duplicate order Please note: [...] Gap Not Calculated 5 - 15 mmol/L [facility] Calcium 8.1 (L) 8.5 - 10.5 mg/dL [facility] Estimated GFR 58 (L) >=60 [facility] Comment: The reported eGFR should be multiplied b y 1.2 for patients. The MDRD is not an appropriate measure o f renal function for patients with body mass extremes or in patients with acute kidney failure. http://[employer].TabSprint/DHnkdep http://[employer].TabSprint/DHMCnkf Specimen Anatomical Collection Method Collection Time Receive d Time (Source) Location / / Volume Laterality Blood specimen 07/12/2017 4:11 AM 017 8:57 (specimen) EST AM EST Resulting Agency Comment Spec In Lab [facility] CHEMISTRY ORDERABLES Performing Organization Address [facility] Phon e Number [place] [phone] (ABNORMAL) Prothrombin Time (07/12/2017 [...] EST Resulting Agency Comment Spec In Lab [facility] HEMATOLOGY ORDERABLES Performing Organization Address [facility] [place] [address] Potassium (07/12/2017 4:11 AM EST) P athologist Signature Potassium 3.8 3.5 - 5.0 [facility] mmol/L [facility] Comment: Please note: ??Patients [...] Address City/State/ZIP Code Phon e Number [address] POCT Glucose (07/12/2017 4:10 AM EST) athologist Signature POC Glucose 90 65 - 199 [facility] mg/dL [facility] Comment: Supplemental ranges: <140 mg/dL before meals <180 mg/dL all other times of the day Specimen Anatomical Collection Method Collection Time Receive d Time (Source) Location / / Volume Laterality Blood specimen 07/12/2017 4:10 AM 017 4:10 (specimen) EST AM EST Yuan Webber MD POINT OF CARE TEST ORDERABLE S Performing Organization Address City/State/ZIP Code Phon e Number [address] POCT Glucose (07/11/2017 11:57 PM EST) athologist Signature POC Glucose 98 65 - 199 [facility] mg/dL [facility] Comment: Supplemental ranges: <140 mg/dL before meals <180 mg/dL all other times of the day Specimen Anatomical Collection Method Collection Time Receive d Time (Source) Location / / Volume Laterality Blood specimen 07/11/2017 11:57 7 (specimen) PM EST 11:57 PM EST Yuan Webber MD POINT OF CARE TEST ORDERABLE S Performing Organization Address City/State/ZIP Code Phon e Number [address] POCT Glucose (07/11/2017 8:32 PM EST) athologist Signature POC Glucose 146 65 - 199 [facility] mg/dL [facility] Comment: Supplemental ranges: <140 mg/dL before meals <180 mg/dL all other times of the day Specimen Anatomical Collection Method Collection Time Receive d Time (Source) Location / / Volume Laterality Blood specimen 07/11/2017 8:32 PM 017 8:32 (specimen) EST PM EST Yuan Webber MD POINT OF CARE TEST ORDERABLE S Performing Organization Address City/State/ZIP Code [place] [address] XR Chest PA & [...] e xtubated, left chest tube removed, and Quincy-Suzi catheter removed since the study. Atelectasis at both lung bases, greater on the left with a small effusion on that side. Stable mild cardiomegaly. No pulmonary edema. No pne umothorax. Procedure Note Lolyd Briscoe MD - 07/11/2017Form atting of this note might be different from the original. EXAMINATION: XR CHEST PA AND LATERAL (GE [employer]) CLINICAL HISTORY: s/p CABGx3 TECHNIQUE: Chest and lateral COMPARISON: 07/07/2017 FINDINGS: Sternotomy wires. The patient has been e xtubated, left chest tube removed, and Quincy-Suzi catheter removed since the study. Atelectasis at [...] Glucose 223 (H) 65 - 199 [place] mg/dL [facility] Comment: Supplemental ranges: <140 mg/dL before meals <180 mg/dL all other times of the day Specimen Anatomical Collection Method Collection Time Receive d Time (Source) Location / / Volume Laterality Blood specimen 07/11/2017 4:05 PM 017 4:05 (specimen) EST PM EST Yuan Webber MD POINT OF CARE TEST ORDERABLE S Performing Organization Address City/State/ZIP Code Phon e Number [address] POCT Glucose (07/11/2017 11:55 AM EST) athologist Signature POC Glucose 176 65 - 199 [facility] mg/dL [facility] Comment: Supplemental ranges: <140 mg/dL before meals <180 mg/dL all other times of the day Specimen Anatomical Collection Method Collection Time Receive d Time (Source) Location / / Volume Laterality Blood specimen 07/11/2017 11:55 7 (specimen) AM EST 11:55 AM EST Authorizing Provider Result Mikaela Webber MD POINT OF CARE TEST ORDERABLE S Performing Organization Address City/State/[place] [address] POCT Glucose (07/11/2017 7:53 AM EST) athologist Signature POC Glucose 189 65 - 199 [place] mg/dL [facility] Comment: Supplemental ranges: <140 mg/dL before meals <180 mg/dL all other times of the day Specimen Anatomical Collection Method Collection Time Receive d Time (Source) Location / / Volume Laterality Blood specimen 07/11/2017 7:53 AM 017 7:53 (specimen) EST AM EST Authorizing Provider Result Mikaela Webber MD POINT OF CARE TEST ORDERABLE S Performing Organization Address City/State/[place] [address] POCT Glucose (07/11/2017 4:22 AM EST) athologist Signature POC Glucose 151 65 - 199 [place] mg/dL [facility] Comment: Supplemental ranges: <140 mg/dL before meals <180 mg/dL all other times of the day Specimen Anatomical Collection Method Collection Time Receive d Time (Source) Location / / Volume Laterality Blood specimen 07/11/2017 4:22 AM 017 4:22 (specimen) EST AM EST Yuan Webber MD POINT OF CARE TEST ORDERABLE S Performing Organization Address City/State/ZIP Code Phon e Number [address] Potassium (07/11/2017 2:20 AM EST) athologist Signature Potassium 4.5 3.5 - 5.0 [facility] mmol/L [facility] Comment: Please note: ??Patients [...] Webber MD CHEMISTRY ORDERABLES Performing Organization Address City/[facility]/ZIP Code Phon e Number [address] POCT Glucose (07/11/2017 12:17 AM EST) athologist Signature POC Glucose 162 65 - 199 [place] mg/dL [facility] Comment: Supplemental ranges: <140 mg/dL before meals <180 mg/dL all other times of the day Specimen Anatomical Collection Method Collection Time Receive d Time (Source) Location / / Volume Laterality Blood specimen 07/11/2017 12:17 7 (specimen) AM EST 12:17 AM EST Yuan Webber MD POINT OF CARE TEST ORDERABLE S Performing Organization Address City/State/ZIP Code Phon e Number [address] POCT Glucose (07/10/2017 8:47 PM EST) athologist Signature POC Glucose 191 65 - 199 [place] mg/dL [facility] Comment: Supplemental ranges: <140 mg/dL before meals <180 mg/dL all other times of the day Specimen Anatomical Collection Method Collection Time Receive d Time (Source) Location / / Volume Laterality Blood specimen 07/10/2017 8:47 PM 017 8:47 (specimen) EST PM EST Yuan Webber MD POINT OF CARE TEST ORDERABLE S Performing Organization Address City/[facility]/ZIP Code Phon e Number [address] POCT Glucose (07/10/2017 4:06 PM EST) athologist Signature POC Glucose 131 65 - 199 [place] mg/dL [facility] Comment: Supplemental ranges: <140 mg/dL before meals <180 mg/dL all other times of the day Specimen Anatomical Collection Method Collection Time Receive d Time (Source) Location / / Volume Laterality Blood specimen 07/10/2017 4:06 PM 017 4:06 (specimen) EST PM EST Yuan Webber MD POINT OF CARE TEST ORDERABLE S Performing Organization Address City/State/ZIP Code Phon e Number [address] POCT Glucose (07/10/2017 3:08 PM EST) athologist Signature POC Glucose 151 65 - 199 [place] mg/dL [facility] Comment: Supplemental ranges: <140 mg/dL before meals <180 mg/dL all other times of the day Specimen Anatomical Collection Method Collection Time Receive d Time (Source) Location / / Volume Laterality Blood specimen 07/10/2017 3:08 PM 017 3:08 (specimen) EST PM EST uYan Webber MD POINT OF CARE TEST ORDERABLE S Performing Organization Address City/State/ZIP Code Phon e Number [address] POCT Glucose (07/10/2017 2:25 PM EST) athologist Signature POC Glucose 146 65 - 199 [place] mg/dL [facility] LABORATORY Comment: Supplemental ranges: <140 mg/dL before meals <180 mg/dL all other times of the day Specimen Anatomical Collection Method Collection Time Receive d Time (Source) Location / / Volume Laterality Blood specimen 07/10/2017 2:25 PM 017 2:25 (specimen) EST PM EST Yuan Webber MD POINT OF CARE TEST ORDERABLE S Performing Organization Address City/State/ZIP Code Phon e Number [address] POCT Glucose (07/10/2017 1:23 PM EST) athologist Signature POC Glucose 166 65 - 199 [place] mg/dL [facility] LABOR[facility]ORY Comment: Supplemental ranges: <140 mg/dL before meals <180 mg/dL all other times of the day Specimen Anatomical Collection Method Collection Time Receive d Time (Source) Location / / Volume Laterality Blood specimen 07/10/2017 1:23 PM 017 1:23 (specimen) EST PM EST Yuan Webber MD POINT OF CARE TEST ORDERABLE S Performing Organization Address City/State/ZIP Code Phon e Number [address] POCT Glucose (07/10/2017 11:52 AM EST) athologist Signature POC Glucose 157 65 - 199 [place] mg/dL [facility] Comment: Supplemental ranges: <140 mg/dL before meals <180 mg/dL all other times of the day Specimen Anatomical Collection Method Collection Time Receive d Time (Source) Location / / Volume Laterality Blood specimen 07/10/2017 11:52 7 (specimen) AM EST 11:52 AM EST Yuan Webber MD POINT OF CARE TEST ORDERABLE S Performing Organization Address City/State/[place] [address] POCT Glucose (07/10/2017 11:01 AM EST) athologist Signature POC Glucose 158 65 - 199 [place] mg/dL [facility] LABORATORY Comment: Supplemental ranges: <140 mg/dL before meals <180 mg/dL all other times of the day Specimen Anatomical Collection Method Collection Time Receive d Time (Source) Location / / Volume Laterality Blood specimen 07/10/2017 11:01 7 (specimen) AM EST 11:01 AM EST Yuan Webber MD POINT OF CARE TEST ORDERABLE S Performing Organization Address City/State/ZIP Code Phon e Number [address] POCT Glucose (07/10/2017 9:54 AM EST) athologist Signature POC Glucose 160 65 - 199 [place] mg/dL [facility] Comment: Supplemental ranges: <140 mg/dL before meals <180 mg/dL all other times of the day Specimen Anatomical Collection Method Collection Time Receive d Time (Source) Location / / Volume Laterality Blood specimen 07/10/2017 9:54 AM 017 9:54 (specimen) EST AM EST Yuan Webber MD POINT OF CARE TEST ORDERABLE S Performing Organization Address City/State/ZIP Code Phon e Number [address] POCT Glucose (07/10/2017 8:58 AM EST) athologist Signature POC Glucose 183 65 - 199 [place] mg/dL [facility] Comment: Supplemental ranges: <140 mg/dL before meals <180 mg/dL all other times of the day Specimen Anatomical Collection Method Collection Time Receive d Time (Source) Location / / Volume Laterality Blood specimen 07/10/2017 8:58 AM 017 8:58 (specimen) EST AM EST Yuan Webber MD POINT OF CARE TEST ORDERABLE S Performing Organization Address City/State/ZIP Code Phon e Number [address] POCT Glucose (07/10/2017 8:01 AM EST) athologist Signature POC Glucose 173 65 - 199 [facility] [place] mg/dL [facility] Comment: Supplemental ranges: <140 mg/dL before meals <180 mg/dL all other times of the day Specimen Anatomical Collection Method Collection Time Receive d Time (Source) Location / / Volume Laterality Blood specimen 07/10/2017 8:01 AM 017 8:01 (specimen) EST AM EST Yuan Webber MD POINT OF CARE TEST ORDERABLE S Performing Organization Address City/State/ZIP Code Phon e Number [address] POCT Glucose (07/10/2017 7:05 AM EST) athologist Signature POC Glucose 166 65 - 199 [facility] [place] mg/dL [facility] LAB[facility]ORY Comment: Supplemental ranges: <140 mg/dL before meals <180 mg/dL all other times of the day Specimen Anatomical Collection Method Collection Time Receive d Time (Source) Location / / Volume Laterality Blood specimen 07/10/2017 7:05 AM 017 7:05 (specimen) EST AM EST Yuan Webber MD POINT OF CARE TEST ORDERABLE S Performing Organization Address City/State/ZIP Code Phon e Number [address] POCT Glucose (07/10/2017 6:00 AM EST) athologist Signature POC Glucose 162 65 - 199 [place] mg/dL [facility]OR[facility]ORY Comment: Supplemental ranges: <140 mg/dL before meals <180 mg/dL all other times of the day Specimen Anatomical Collection Method Collection Time Receive d Time (Source) Location / / Volume Laterality Blood specimen 07/10/2017 6:00 AM 017 6:00 (specimen) EST AM EST Yuan Webber MD POINT OF CARE TEST ORDERABLE S Performing Organization Address City/State/[place] [address] (ABNORMAL) Differential, Automated (07/10/2017 4:28 AM EST) Patholo gist Method Time Signature Neutrophils % 87.9 % [facility] LABORATORY Neutr Abs (ANC) 10.70 (H) 1.70 - [facility] 6.10 [facility] x10(3)/[facility] L LABORATORY Lymphocytes % 3.9 % [facility] LABORATORY Lymphocytes Abs 0.5 (L) 0.9 - 3.2 [facility] x10(3)/[facility] LABORATORY Monocytes % 7.0 % [facility] LABORATORY Monocyte Abs 0.8 0.3 - 0.9 [facility] x10(3)/[facility] LABORATORY Eosinophils % 0.3 % [facility] LABORATORY Eosinophils Abs 0.0 0.0 - 0.4 [facility] x10(3)/[facility] LABORATORY Basophils % 0.2 % [facility] LABORATORY Basophils Abs 0.0 0.0 - 0.1 [place] 319870(3)/[facility] LABORATORY Immature Gran % 0.70 % [facility] LABORATORY Comment: Immature granulocytes(IG's)percentage an d absolute count will include metamyelocytes, myelocytes, and promyelo cytes. Blood smears from CBCs yielding IG's will be scanned manually for concor dance. If this scan disagrees with the automated IG or if promyelocytes are not ed, a manual differential will be performed. Melsia Gran Abs 0.08 (H) 0.00 - 0.04 x10(3)/[facility] LABORATORY Specimen Anatomical Collection Method Collection Time Receive d Time (Source) Location / / Volume Laterality Blood specimen 07/10/2017 4:28 AM 017 4:36 (specimen) EST AM EST Resulting Agency Comment Spec In Lab Yuan Webber MD HEMATOLOGY ORDERABLES Performing Organization Address City/State/[place] [address] (ABNORMAL) Hemogram (07/10/2017 4:28 AM EST) Analysis Performed At [facility] Time Signature WBC 12.2 (H) 4.0 - 9.5 [facility] x10(3)/[facility] LABORATORY RBC 3.31 (L) 4.58 - [facility] 5.54 [facility] x10(6)/[facility] LABORATORY Hemoglobin 9.8 (L) 13.7 - [facility] 16.5 gm/dL [facility] LABORATORY Hematocrit 30.0 (L) 40.5 - [facility] 48.5 % [facility] LABORATORY MCV 90.6 82.9 - [facility]1 [facility] LABORATORY MCH 29.6 27.5 - [facility] 32.1 pg [facility] LABORATORY MCHC 32.7 32.0 - [facility] 35.7 gm/dL [facility] LABORATORY Platelets 135 (L) 145 - 357 [facility] x10(3)/[facility] LABORATORY RDWSD 50.8 (H) 36.0 - [facility] 45.0 [facility] LABORATORY RDWCV 15.4 (H) 11.4 - [facility] 13.8 % [facility] LABORATORY MPV 10.0 7.6 - 12.9 [facility] LABORATORY nRBC % Auto 0.0 % [facility] LABORATORY nRBC Abs Auto 0.000 0.000 - [facility] 0.000 [facility] x10(3)/[facility] LABORATORY Specimen Anatomical Collection Method Collection Time Receive d Time (Source) Location / / Volume Laterality Blood specimen 07/10/2017 4:28 AM 017 4:36 (specimen) EST AM EST Resulting Agency Comment Spec In Lab Yuan Webber MD HEMATOLOGY ORDERABLES Performing Organization Address City/State/[place] [address] (ABNORMAL) Basic Metabolic Panel (non-fasting) (07/10/2017 4:28 AM EST) P athologist Signature Glucose Lvl 178 65 - 199 [facility] mg/dL [facility] LABORATORY Comment: Diabetes: >=200 mg/dL plus symp toms BUN 20 10 - 20 mg/dL [facility] LABORATORY Creatinine 1.19 0.80 - 1.50 mg/dL [facility] Sodium 143 135 - [...] Anion Gap 15 5 - 15 mmol/L [facility] LABORATORY Calcium 7.4 (L) 8.5 - 10.5 mg/dL [facility] LABORATORY Estimated GFR 60 >=60 [facility] LABORATORY Comment: The reported eGFR should be multiplied b y 1.2 for patients. The MDRD is not an appropriate measure o f renal function for patients with body mass extremes or in patients with acute kidney failure. [email or web address]/DHnkdep [email or web address]://[employer]/DHMCnkf Specimen Anatomical Collection Method Collection Time Receive d Time (Source) Location / / Volume Laterality Blood specimen 07/10/2017 4:28 AM 017 4:36 (specimen) EST AM EST Resulting Agency Comment Spec In Lab Yuan Webber MD CHEMISTRY ORDERABLES Performing Organization Address City/State/[place] [address] POCT Glucose (07/10/2017 4:26 AM EST) P athologist Signature POC Glucose 176 65 - 199 [facility] mg/dL [facility] LABOR[facility]ORY Comment: Supplemental ranges: <140 mg/dL before meals <180 mg/dL all other times of the day Specimen Anatomical Collection Method Collection Time Receive d Time (Source) Location / / Volume Laterality Blood specimen 07/10/2017 4:26 AM 017 4:26 (specimen) EST AM EST Yuan Webber MD POINT OF CARE TEST ORDERABLE S Performing Organization Address City/State/[place] [address] (ABNORMAL) POCT Glucose (07/10/2017 3:06 AM EST) P athologist Signature POC Glucose 204 (H) 65 - 199 [facility] mg/dL [facility] LABORATORY Comment: Supplemental ranges: <140 mg/dL before meals <180 mg/dL all other times of the day Specimen Anatomical Collection Method Collection Time Receive d Time (Source) Location / / Volume Laterality Blood specimen 07/10/2017 3:06 AM 017 3:06 (specimen) EST AM EST Yuan Webber MD POINT OF CARE TEST ORDERABLE S Performing Organization Address City/State/ZIP Code Phon e Number [address] (ABNORMAL) POCT Glucose (07/10/2017 2:10 AM EST) athologist Signature POC Glucose 203 (H) 65 - 199 [facility] LAB[facility] Comment: Supplemental ranges: <140 mg/dL before meals <180 mg/dL all other times of the day Specimen Anatomical Collection Method Collection Time Receive d Time (Source) Location / / Volume Laterality Blood specimen 07/10/2017 2:10 AM 017 2:10 (specimen) EST AM EST Yuan Webber MD POINT OF CARE TEST ORDERABLE S Performing Organization Address City/State/[place] [address] POCT Glucose (07/10/2017 1:09 AM EST) athologist Signature POC Glucose 196 65 - 199 [facility] mg/dL [facility] LABORATORY Comment: Supplemental ranges: <140 mg/dL before meals <180 mg/dL all other times of the day Specimen Anatomical Collection Method Collection Time Receive d Time (Source) Location / / Volume Laterality Blood specimen 07/10/2017 1:09 AM 017 1:09 (specimen) EST AM EST Yuan Webber MD POINT OF CARE TEST ORDERABLE S Performing Organization Address City/State/ZIP Code Phon e Number [address] POCT Glucose (07/10/2017 12:10 AM EST) athologist Signature POC Glucose 173 65 - 199 [place] mg/dL [facility] LABORATORY Comment: Supplemental ranges: <140 mg/dL before meals <180 mg/dL all other times of the day Specimen Anatomical Collection Method Collection Time Receive d Time (Source) Location / / Volume Laterality Blood specimen 07/10/2017 12:10 7 (specimen) AM EST 12:10 AM EST Yuan Webber MD POINT OF CARE TEST ORDERABLE S Performing Organization Address City/State/ZIP Code Phon e Number [address] POCT Glucose (07/09/2017 11:01 PM EST) athologist Signature POC Glucose 140 65 - 199 [facility] mg/dL [facility] LABOR[facility]ORY Comment: Supplemental ranges: <140 mg/dL before meals <180 mg/dL all other times of the day Specimen Anatomical Collection Method Collection Time Receive d Time (Source) Location / / Volume Laterality Blood specimen 07/09/2017 11:01 7 (specimen) PM EST 11:01 PM EST Yuan Webber MD POINT OF CARE TEST ORDERABLE S Performing Organization Address City/State/ZIP Code Phon e Number [address] POCT Glucose (07/09/2017 10:05 PM EST) athologist Signature POC Glucose 144 65 - 199 [place] mg/dL [facility] LABORATORY Comment: Supplemental ranges: <140 mg/dL before meals <180 mg/dL all other times of the day Specimen Anatomical Collection Method Collection Time Receive d Time (Source) Location / / Volume Laterality Blood specimen 07/09/2017 10:05 7 (specimen) PM EST 10:05 PM EST Yuan Webber MD POINT OF CARE TEST ORDERABLE S Performing Organization Address City/State/[place] [address] POCT Glucose (07/09/2017 9:31 PM EST) athologist Signature POC Glucose 121 65 - 199 [place] mg/dL [facility] LABORATORY Comment: Supplemental ranges: <140 mg/dL before meals <180 mg/dL all other times of the day Specimen Anatomical Collection Method Collection Time Receive d Time (Source) Location / / Volume Laterality Blood specimen 07/09/2017 9:31 PM 017 9:31 (specimen) EST PM EST Yuan Webber MD POINT OF CARE TEST ORDERABLE S Performing Organization Address City/State/ZIP Code Phon e Number [address] POCT Glucose (07/09/2017 9:03 PM EST) athologist Signature POC Glucose 98 65 - 199 [place] mg/dL [facility]ORY Comment: Supplemental ranges: <140 mg/dL before meals <180 mg/dL all other times of the day Specimen Anatomical Collection Method Collection Time Receive d Time (Source) Location / / Volume Laterality Blood specimen 07/09/2017 9:03 PM 017 9:03 (specimen) EST PM EST Yuan Webber MD POINT OF CARE TEST ORDERABLE S Performing Organization Address City/State/ZIP Code Phon e Number [address] POCT Glucose (07/09/2017 8:09 PM EST) athologist Signature POC Glucose 117 65 - 199 [facility] mg/dL [facility] LAB[facility]ORY Comment: Supplemental ranges: <140 mg/dL before meals <180 mg/dL all other times of the day Specimen Anatomical Collection Method Collection Time Receive d Time (Source) Location / / Volume Laterality Blood specimen 07/09/2017 8:09 PM 017 8:09 (specimen) EST PM EST Yuan Webber MD POINT OF CARE TEST ORDERABLE S Performing Organization Address City/State/ZIP Code Phon e Number [address] POCT Glucose (07/09/2017 5:40 PM EST) athologist Signature POC Glucose 155 65 - 199 [place] mg/dL [facility] LABORATORY Comment: Supplemental ranges: <140 mg/dL before meals <180 mg/dL all other times of the day Specimen Anatomical Collection Method Collection Time Receive d Time (Source) Location / / Volume Laterality Blood specimen 07/09/2017 5:40 PM 017 5:40 (specimen) EST PM EST Yuan Webber MD POINT OF CARE TEST ORDERABLE S Performing Organization Address City/State/ZIP Code Phon e Number [address] POCT Glucose (07/09/2017 4:24 PM EST) athologist Signature POC Glucose 164 65 - 199 [facility] mg/dL [facility]ORY Comment: Supplemental ranges: <140 mg/dL before meals <180 mg/dL all other times of the day Specimen Anatomical Collection Method Collection Time Receive d Time (Source) Location / / Volume Laterality Blood specimen 07/09/2017 4:24 PM 017 4:24 (specimen) EST PM EST Yuan Webber MD POINT OF CARE TEST ORDERABLE S Performing Organization Address City/State/ZIP Code Phon e Number [address] POCT Glucose (07/09/2017 3:19 PM EST) athologist Signature POC Glucose 166 65 - 199 [place] mg/dL [facility] LABORATORY Comment: Supplemental ranges: <140 mg/dL before meals <180 mg/dL all other times of the day Specimen Anatomical Collection Method Collection Time Receive d Time (Source) Location / / Volume Laterality Blood specimen 07/09/2017 3:19 PM 017 3:19 (specimen) EST PM EST Yuan Webber MD POINT OF CARE TEST ORDERABLE S Performing Organization Address City/State/[place] [address] POCT Glucose (07/09/2017 2:26 PM EST) athologist Signature POC Glucose 179 65 - 199 [facility]dL [facility] Comment: Supplemental ranges: <140 mg/dL before meals <180 mg/dL all other times of the day Specimen Anatomical Collection Method Collection Time Receive d Time (Source) Location / / Volume Laterality Blood specimen 07/09/2017 2:26 PM 017 2:26 (specimen) EST PM EST Yuan Webber MD POINT OF CARE TEST ORDERABLE S Performing Organization Address City/State/[place] [address] (ABNORMAL) POCT Glucose (07/09/2017 1:29 PM EST) athologist Signature POC Glucose 210 (H) 65 - 199 [facility] mg/dL [facility] Comment: Supplemental ranges: <140 mg/dL before meals <180 mg/dL all other times of the day Specimen Anatomical Collection Method Collection Time Receive d Time (Source) Location / / Volume Laterality Blood specimen 07/09/2017 1:29 PM 017 1:29 (specimen) EST PM EST Yuan Webber MD POINT OF CARE TEST ORDERABLE S Performing Organization Address City/State/[place] [address] POCT Glucose (07/09/2017 12:20 PM EST) athologist Signature POC Glucose 172 65 - 199 [facility] mg/dL [facility] Comment: Supplemental ranges: <140 mg/dL before meals <180 mg/dL all other times of the day Specimen Anatomical Collection Method Collection Time Receive d Time (Source) Location / / Volume Laterality Blood specimen 07/09/2017 12:20 7 (specimen) PM EST 12:20 PM EST Yuan Webber MD POINT OF CARE TEST ORDERABLE S Performing Organization Address City/State/[place] [address] POCT Glucose (07/09/2017 11:24 AM EST) athologist Signature POC Glucose 156 65 - 199 [facility] Comment: Supplemental ranges: <140 mg/dL before meals <180 mg/dL all other times of the day Specimen Anatomical Collection Method Collection Time Receive d Time (Source) Location / / Volume Laterality Blood specimen 07/09/2017 11:24 7 (specimen) AM EST 11:24 AM EST Yuan Webber MD POINT OF CARE TEST ORDERABLE S Performing Organization Address City/State/ZIP Code Phon e Number [address] POCT Glucose (07/09/2017 11:11 AM EST) P athologist Signature POC Glucose 172 65 - 199 [place] mg/dL [facility] LABOR[facility]ORY Comment: Supplemental ranges: <140 mg/dL before meals <180 mg/dL all other times of the day Specimen Anatomical Collection Method Collection Time Receive d Time (Source) Location / / Volume Laterality Blood specimen 07/09/2017 11:11 7 (specimen) AM EST 11:11 AM EST Yuan Webber MD POINT OF CARE TEST ORDERABLE S Performing Organization Address City/State/ZIP Code Phon e Number [address] POCT Glucose (07/09/2017 10:08 AM EST) P athologist Signature POC Glucose 176 65 - 199 [place] mg/dL [facility] LAB[facility]ORY Comment: Supplemental ranges: <140 mg/dL before meals <180 mg/dL all other times of the day Specimen Anatomical Collection Method Collection Time Receive d Time (Source) Location / / Volume Laterality Blood specimen 07/09/2017 10:08 7 (specimen) AM EST 10:08 AM EST Yuan Webber MD POINT OF CARE TEST ORDERABLE S Performing Organization Address City/State/ZIP Code Phon e Number [address] POCT Glucose (07/09/2017 8:02 AM EST) P athologist Signature POC Glucose 178 65 - 199 [facility] mg/dL [facility] Comment: Supplemental ranges: <140 mg/dL before meals <180 mg/dL all other times of the day Specimen Anatomical Collection Method Collection Time Receive d Time (Source) Location / / Volume Laterality Blood specimen 07/09/2017 8:02 AM 017 8:02 (specimen) EST AM EST Yuan Webber MD POINT OF CARE TEST ORDERABLE S Performing Organization Address City/State/[place] [address] (ABNORMAL) BLOOD GAS 2 ARTERIAL (07/09/2017 5:37 AM EST) Analysis Performed At Patho logist Time Signature pH Art 7.36 7.35 - [facility] 7.45 [facility] LABORATORY pCO2 Art 38 35 - 45 [facility] LABORATORY pO2 Art 79 (L) 85 - 104 [facility] LABORATORY HCO3 Art 20.9 20.0 - [facility] 26.0 [facility] mmol/[facility] LABORATORY BE Art -4.6 (L) -3.0 - 3.0 [facility] mmol/L [facility] LABORATORY Hgb Blood Gas 10.5 (L) 13.7 - [facility] 16.5 gm/dL [facility] O2HB Art 93.8 (L) 94.0 - [facility] 97.0 % [facility] LABORATORY COHB Art 0.3 % [facility] [...] Bld 175 65 - 199 mg/dL [facility] LABORATORY Comment: Diabetes: >=200 mg/dL plus symp toms. Lactate WB 1.0 0.5 - 2.2 mmol/L [facility] LABORATORY FIO2 Art 40 % [facility] LABORATORY PF Ratio Art 198 [facility] LABORATORY Specimen Anatomical Collection Method Collection Time Receive d Time (Source) Location / / Volume Laterality Blood specimen 07/09/2017 5:37 AM 017 5:37 (specimen) EST AM EST Yuan Webber MD CHEMISTRY ORDERABLES Performing Organization Address City/[facility]/ZIP Code Phon e Number [address] POCT Glucose (07/09/2017 3:27 AM EST) P athologist Signature POC Glucose 192 65 - 199 [facility] mg/dL [facility] Comment: Supplemental ranges: <140 mg/dL before meals <180 mg/dL all other times of the day Specimen Anatomical Collection Method Collection Time Receive d Time (Source) Location / / Volume Laterality Blood specimen 07/09/2017 3:27 AM 017 3:27 (specimen) EST AM EST Yuan Webber MD POINT OF CARE TEST ORDERABLE S Performing Organization Address City/[facility]/[place] [address] (ABNORMAL) Basic Metabolic Panel (non-fasting) (07/09/2017 2:30 AM EST) P athologist Signature Glucose Lvl 179 65 - 199 [facility] mg/dL [facility] Comment: Diabetes: >=200 mg/dL plus symp toms BUN 17 10 - 20 mg/dL [facility] LABORATORY Creatinine 1.34 0.80 - 1.50 mg/dL [facility] LABORATORY Sodium 144 135 - 145 mmol/L [facility] LAB[facility] Potassium Not Perf 3.5 - 5.0 mmol/L [facility] Comment: Duplicate order Please note: [...] 15 mmol/L [facility] Calcium 7.1 (L) 8.5 - 10.5 mg/dL [facility] Comment: result rechecked-JLK Estimated GFR 53 (L) >=60 [facility] Comment: The reported eGFR should be multiplied b y 1.2 for patients. The MDRD is not an appropriate measure o f renal function for patients with body mass extremes or in patients with acute kidney failure. http://Spoonfed/DHnkdep http://Spoonfed/DHMCnkf Specimen Anatomical Collection Method Collection Time Receive d Time (Source) Location / / Volume Laterality Blood specimen Venous Draw / 07/09/2017 2:30 AM 2016 2:42 (specimen) Unknown EST AM EST Resulting Agency Comment Spec In Lab Yuan Webber MD CHEMISTRY ORDERABLES Performing Organization Address City/State/[place] [address] (ABNORMAL) Potassium (07/09/2017 2:30 AM EST) P athologist Signature Potassium 5.1 (H) 3.5 - 5.0 [facility] mmol/L [facility] Comment: Please note: ??Patients [...] Webber MD CHEMISTRY ORDERABLES Performing Organization Address City/[facility]/[place] [address] (ABNORMAL) Hemogram (07/09/2017 2:30 AM EST) Analysis Performed At Patho logist Time Signature WBC 12.5 (H) 4.0 - 9.5 [facility] x10(3[facility] LABORATORY RBC 3.38 (L) 4.58 - [facility] 5.54 [facility] x10(6)/[facility] LABORATORY Hemoglobin 10.1 (L) 13.7 - [facility] 16.5 gm/dL [facility] Hematocrit 30.3 (L) 40.5 - [facility] 48.5 % [facility] MCV 89.6 82.9 - [facility] 93.1 [facility] LABORATORY MCH 29.9 27.5 - [place] R[place] 32.1 pg [facility] MCHC 33.3 32.0 - [place] 35.7 gm/dL [facility] Platelets 127 (L) 145 - 357 [facility] x10(3)/[facility] LABORATORY RDWSD 49.3 (H) 36.0 - [facility] RYAN 45.0 [facility] LABORATORY RDWCV 15.2 (H) 11.4 - [facility] RYAN 13.8 % [facility] MPV 9.9 7.6 - 12.9 [facility] nRBC % Auto 0.0 % [facility] nRBC Abs Auto 0.000 0.000 - [facility] RYAN 0.000 [facility] x10(3)/[facility]ORATORY Specimen Anatomical Collection Method Collection Time Receive d Time (Source) Location / / Volume Laterality Blood specimen 07/09/2017 2:30 AM 017 2:41 (specimen) EST AM EST Resulting Agency Comment Spec In Lab Yuan Webber MD HEMATOLOGY ORDERABLES Performing Organization Address City/State/[place] [address] POCT Glucose (07/09/2017 2:10 AM EST) athologist Signature POC Glucose 169 65 - 199 [place] mg/dL [facility] Comment: Supplemental ranges: <140 mg/dL before meals <180 mg/dL all other times of the day Specimen Anatomical Collection Method Collection Time Receive d Time (Source) Location / / Volume Laterality Blood specimen 07/09/2017 2:10 AM 017 2:10 (specimen) EST AM EST Yuan Webber MD POINT OF CARE TEST ORDERABLE S Performing Organization Address City/[facility]/ZIP Code Phon e Number [address] POCT Glucose (07/09/2017 1:01 AM EST) athologist Signature POC Glucose 173 65 - 199 [place] mg/dL [facility] Comment: Supplemental ranges: <140 mg/dL before meals <180 mg/dL all other times of the day Specimen Anatomical Collection Method Collection Time Receive d Time (Source) Location / / Volume Laterality Blood specimen 07/09/2017 1:01 AM 017 1:01 (specimen) EST AM EST Yuan Webber MD POINT OF CARE TEST ORDERABLE S Performing Organization Address City/[facility]/[place] [address] Blood culture (07/09/2017 12:40 AM EST) [facility] gist Method Time Signature Blood Culture No growth [place] DAVIS at 5 days. [facility] Specimen Anatomical Collection Method Collection Time Receive d Time (Source) Location / / Volume Laterality Blood specimen STRUCTURE OF RIGHT 07/09/2017 12:40 3:58 (specimen) UPPER LIMB / AM EST AM EST Unknown Resulting Agency Comment Spec In Lab Yuan Webber MD MICROBIOLOGY - BLOOD ORDERAB LES Performing Organization Address City/State/[place] [address] Blood culture (07/09/2017 12:30 AM EST) [facility] gist Method Time Signature Blood Culture No growth BARBARA DAVIS at 5 days. [facility] Specimen Anatomical Collection Method Collection Time Receive d Time (Source) Location / / Volume Laterality Blood specimen STRUCTURE OF LEFT 07/09/2017 12:30 1211/2016 3:59 (specimen) UPPER LIMB / AM EST AM EST Unknown Resulting Agency Comment Spec In Lab Yuan Webber MD MICROBIOLOGY - BLOOD ORDERAB LES Performing Organization Address City/[facility]/ZIP [facility] [place] [address] (ABNORMAL) Urinalysis Microscopic Exam [...] 17 (H) 0 - 2 /LPF [facility] Gran Cast UA 1 (H) <=0 /LPF [facility] Uric Ac Bianca Rare (A) None /HPF [facility] Specimen (Source) Anatomical Collection Method Collection Time Re ceived Time Location / / Volume Laterality Urine specimen 07/09/2017 12:05 07/09/ 7 obtained via AM EST 12:39 AM EST indwelling urinary catheter (specimen) Resulting Agency Comment Spec In Lab Yuan Webber MD URINE ORDERABLES Performing Organization Address City/[facility] [place] [address] (ABNORMAL) Urinalysis with reflex Culture (07/09/2017 12:05 AM EST) [employer] Method Time Signature Glucose UA Negative Negative [facility] R[facility]AN mg/dL [facility] Protein UA 30 (A) Negative [facility] mg/dL [facility] Bilirubin UA Negative Negative [facility] mg/dL [facility] Comment: Clinical correlation required for positi ve Urine Bilirubin results as false positive may occur with some drugs and d rug related products. If a false positive is suspected a serum total bili yeager should be considered if clinically indicated. Urobilinogen UA Normal Normal mg/dL [facility] pH UA 5.0 5.0 - 8.0 [facility] Blood UA Moderate (A) Negative mg/dL [facility] Ketones UA Negative Negative mg/dL [facility] Nitrite UA Negative Negative [facility] Leukocytes UA Negative Negative [facility] LABORATORY Appearance UA Hazy (A) Clear [facility] Spec Hawley UA 1.025 1.002 - 1.030 [facility] Color UA Yellow Yellow [facility] Culture Reflexed No [facility] Specimen (Source) Anatomical Collection Method Collection Time Re ceived Time Location / / Volume Laterality Urine specimen 07/09/2017 12:05 7 obtained via AM EST 12:39 AM EST indwelling urinary catheter (specimen) Resulting Agency Comment Spec In Lab Yuan Webber MD URINE ORDERABLES Performing Organization Address City/[facility]/ZIP Code Phon e Number [address] POCT Glucose (07/08/2017 11:01 PM EST) athologist Signature POC Glucose 191 65 - 199 [facility] Comment: Supplemental ranges: <140 mg/dL before meals <180 mg/dL all other times of the day Specimen Anatomical Collection Method Collection Time Receive d Time (Source) Location / / Volume Laterality Blood specimen 07/08/2017 11:01 7 (specimen) PM EST 11:01 PM EST Yuan Webber MD POINT OF CARE TEST ORDERABLE S Performing Organization Address City/[facility]/ZIP Code Phon e Number [address] POCT Glucose (07/08/2017 10:04 PM EST) athologist Signature POC Glucose 198 65 - 199 [facility] Comment: Supplemental ranges: <140 mg/dL before meals <180 mg/dL all other times of the day Specimen Anatomical Collection Method Collection Time Receive d Time (Source) Location / / Volume Laterality Blood specimen 07/08/2017 10:04 7 (specimen) PM EST 10:04 PM EST Yuan Webber MD POINT OF CARE TEST ORDERABLE S Performing Organization Address City/State/[place] [address] Prepare Albumin 5% in [...] BROWN BLOOD BANK ORDERABLES Performing Organization Address City/[facility]/[place] [address] POCT Glucose (07/08/2017 8:28 PM EST) P athologist Signature POC Glucose 195 65 - 199 [facility]/dL [facility] Comment: Supplemental ranges: <140 mg/dL before meals <180 mg/dL all other times of the day Specimen Anatomical Collection Method Collection Time Receive d Time (Source) Location / / Volume Laterality Blood specimen 07/08/2017 8:28 PM 017 8:28 (specimen) EST PM EST Yuan Webber MD POINT OF CARE TEST ORDERABLE S Performing Organization Address City/[facility]/[place] [address] (ABNORMAL) POCT Glucose (07/08/2017 7:13 PM EST) P athologist Signature POC Glucose 220 (H) 65 - 199 [facility] mg/dL [facility] Comment: Supplemental ranges: <140 mg/dL before meals <180 mg/dL all other times of the day Specimen Anatomical Collection Method Collection Time Receive d Time (Source) Location / / Volume Laterality Blood specimen 07/08/2017 7:13 PM 017 7:13 (specimen) EST PM EST Yuan Webber MD POINT OF CARE TEST ORDERABLE S Performing Organization Address City/State/[place] [address] POCT Glucose (07/08/2017 5:04 PM EST) P athologist Signature POC Glucose 147 65 - 199 [facility] mg/dL [facility] Comment: Supplemental ranges: <140 mg/dL before meals <180 mg/dL all other times of the day Specimen Anatomical Collection Method Collection Time Receive d Time (Source) Location / / Volume Laterality Blood specimen 07/08/2017 5:04 PM 017 5:04 (specimen) EST PM EST Yuan Webber MD POINT OF CARE TEST ORDERABLE S Performing Organization Address City/State/[place] [address] (ABNORMAL) BLOOD GAS 2 ARTERIAL (07/08/2017 4:13 PM EST) Analysis Performed At Patho logist Time Signature pH Art 7.38 7.35 - [facility] 7.45 [facility] pCO2 Art 36 35 - 45 [facility] mmHg [facility] pO2 Art 91 85 - 104 [facility] LABORATORY HCO3 Art 20.9 20.0 - [facility] 26.0 [facility] mmol/L [facility] BE Art -4.2 (L) -3.0 - 3.0 [facility] mmol/L [facility] Hgb Blood Gas 11.7 (L) 13.7 - [facility] 16.5 gm/dL [facility] O2HB Art 95.1 94.0 - [facility] 97.0 % [facility] COHB Art 0.6 % [facility]ITY [...] Bld 155 65 - 199 mg/dL [facility] Comment: Diabetes: >=200 mg/dL plus symp toms. Lactate WB 1.4 0.5 - 2.2 mmol/L [facility] FIO2 Art 40 % [facility] PF Ratio Art 228 [facility] Specimen Anatomical Collection Method Collection Time Receive d Time (Source) Location / / Volume Laterality Blood specimen 07/08/2017 4:13 PM 017 4:13 (specimen) EST PM EST Yuan Webber MD CHEMISTRY ORDERABLES Performing Organization Address City/State/ZIP Code Phon e Number [address] POCT Glucose (07/08/2017 4:01 PM EST) P athologist Signature POC Glucose 148 65 - 199 [facility] mg/dL [facility] Comment: Supplemental ranges: <140 mg/dL before meals <180 mg/dL all other times of the day Specimen Anatomical Collection Method Collection Time Receive d Time (Source) Location / / Volume Laterality Blood specimen 07/08/2017 4:01 PM 017 4:01 (specimen) EST PM EST Yuan Webber MD POINT OF CARE TEST ORDERABLE S Performing Organization Address City/State/[place] [address] POCT Glucose (07/08/2017 3:21 PM EST) athologist Signature POC Glucose 118 65 - 199 [place] mg/dL [facility] Comment: Supplemental ranges: <140 mg/dL before meals <180 mg/dL all other times of the day Specimen Anatomical Collection Method Collection Time Receive d Time (Source) Location / / Volume Laterality Blood specimen 07/08/2017 3:21 PM 017 3:21 (specimen) EST PM EST Yuan Webber MD POINT OF CARE TEST ORDERABLE S Performing Organization Address City/State/ZIP Code Phon e Number [address] POCT Glucose (07/08/2017 2:01 PM EST) athologist Signature POC Glucose 129 65 - 199 [place] mg/dL [facility] Comment: Supplemental ranges: <140 mg/dL before meals <180 mg/dL all other times of the day Specimen Anatomical Collection Method Collection Time Receive d Time (Source) Location / / Volume Laterality Blood specimen 07/08/2017 2:01 PM 017 2:01 (specimen) EST PM EST Yuan Webber MD POINT OF CARE TEST ORDERABLE S Performing Organization Address City/State/[place] [address] POCT Glucose (07/08/2017 11:53 AM EST) athologist Signature POC Glucose 156 65 - 199 [place] mg/dL [facility] Comment: Supplemental ranges: <140 mg/dL before meals <180 mg/dL all other times of the day Specimen Anatomical Collection Method Collection Time Receive d Time (Source) Location / / Volume Laterality Blood specimen 07/08/2017 11:53 7 (specimen) AM EST 11:53 AM EST Yuan Webber MD POINT OF CARE TEST ORDERABLE S Performing Organization Address City/State/[place] [address] POCT Glucose (07/08/2017 11:04 AM EST) athologist Signature POC Glucose 181 65 - 199 [facility]dL [facility] Comment: Supplemental ranges: <140 mg/dL before meals <180 mg/dL all other times of the day Specimen Anatomical Collection Method Collection Time Receive d Time (Source) Location / / Volume Laterality Blood specimen 07/08/2017 11:04 7 (specimen) AM EST 11:04 AM EST Yuan Webber MD POINT OF CARE TEST ORDERABLE S Performing Organization Address City/[facility]/[place] [address] (ABNORMAL) POCT Glucose (07/08/2017 9:24 AM EST) athologist Signature POC Glucose 203 (H) 65 - 199 [facility] mg/dL [facility] Comment: Supplemental ranges: <140 mg/dL before meals <180 mg/dL all other times of the day Specimen Anatomical Collection Method Collection Time Receive d Time (Source) Location / / Volume Laterality Blood specimen 07/08/2017 9:24 AM 017 9:24 (specimen) EST AM EST Yuan Webber MD POINT OF CARE TEST ORDERABLE S Performing Organization Address City/[facility]/[place] [address] APTT (07/08/2017 8:40 AM EST) athologist Signature PTT 33 25 - 35 sec [facility] Comment: The recommended therapeutic range for fu ll dose, unfractionated heparin at [facility] is 80 ? 114 seconds. The use [...] Address City/State/[place] [address] (ABNORMAL) Prothrombin Time (07/08/2017 [...] City/State/[place] [address] (ABNORMAL) POCT Glucose (07/08/2017 7:38 AM EST) athologist Signature POC Glucose 232 (H) 65 - 199 [facility] mg/dL [facility] Comment: Supplemental ranges: <140 mg/dL before meals <180 mg/dL all other times of the day Specimen Anatomical Collection Method Collection Time Receive d Time (Source) Location / / Volume Laterality Blood specimen 07/08/2017 7:38 AM 017 7:38 (specimen) EST AM EST Yuan Webber MD POINT OF CARE TEST ORDERABLE S Performing Organization Address City/State/ZIP Code Phon e Number [address] (ABNORMAL) POCT Glucose (07/08/2017 7:07 AM EST) athologist Signature POC Glucose 234 (H) 65 - 199 [facility] mg/dL [facility] Comment: Supplemental ranges: <140 mg/dL before meals <180 mg/dL all other times of the day Specimen Anatomical Collection Method Collection Time Receive d Time (Source) Location / / Volume Laterality Blood specimen 07/08/2017 7:07 AM 017 7:07 (specimen) EST AM EST Yuan Webber MD POINT OF CARE TEST ORDERABLE S Performing Organization Address City/[facility]/[place] [address] (ABNORMAL) POCT Glucose (07/08/2017 6:04 AM EST) P athologist Signature POC Glucose 225 (H) 65 - 199 [place] mg/dL [facility] Comment: Supplemental ranges: <140 mg/dL before meals <180 mg/dL all other times of the day Specimen Anatomical Collection Method Collection Time Receive d Time (Source) Location / / Volume Laterality Blood specimen 07/08/2017 6:04 AM 017 6:04 (specimen) EST AM EST Yuan Webber MD POINT OF CARE TEST ORDERABLE S Performing Organization Address City/[facility]/[place] [address] (ABNORMAL) POCT Glucose (07/08/2017 5:31 AM EST) P athologist Signature POC Glucose 216 (H) 65 - 199 [place] mg/dL [facility] Comment: Supplemental ranges: <140 mg/dL before meals <180 mg/dL all other times of the day Specimen Anatomical Collection Method Collection Time Receive d Time (Source) Location / / Volume Laterality Blood specimen 07/08/2017 5:31 AM 017 5:31 (specimen) EST AM EST Yuan Webber MD POINT OF CARE TEST ORDERABLE S Performing Organization Address City/State/ZIP Code Phon e Number [address] (ABNORMAL) POCT Glucose (07/08/2017 4:52 AM EST) P athologist Signature POC Glucose 257 (H) 65 - 199 [facility] mg/dL [facility] Comment: Supplemental ranges: <140 mg/dL before meals <180 mg/dL all other times of the day Specimen Anatomical Collection Method Collection Time Receive d Time (Source) Location / / Volume Laterality Blood specimen 07/08/2017 4:52 AM 017 4:52 (specimen) EST AM EST Daphne Shahid MD POINT OF CARE TEST ORDERABLE S Performing Organization Address City/State/[place] [address] (ABNORMAL) BLOOD GAS 2 ARTERIAL (07/08/2017 4:04 AM EST) Analysis Performed At Patho logis Time Signature pH Art 7.30 (L) 7.35 - [facility] 7.45 [facility] pCO2 Art 41 35 - 45 [facility] LABORATORY pO2 Art 83 (L) 85 - 104 [facility] LABORATORY HCO3 Art 19.6 (L) 20.0 - [facility] 26.0 [facility] mmol/[facility] BE Art -6.8 (L) -3.0 - 3.0 [facility] mmol/L [facility] Hgb Blood Gas 12.2 (L) 13.7 - [facility] 16.5 gm/dL [facility] O2HB Art 93.5 (L) 94.0 - [facility] 97.0 % [facility] COHB Art 0.4 % UNIVERSITY [...] 274 (H) 65 - 199 mg/dL [facility] Comment: Diabetes: >=200 mg/dL plus symp toms. Lactate WB 4.4 (Critical) 0.5 - 2.2 mmol/L [facility] Comment: Noted by instrument technician apprentice. FIO2 Art 40 % [facility] PF Ratio Art 208 [facility] Specimen Anatomical Collection Method Collection Time Receive d Time (Source) Location / / Volume Laterality Blood specimen 07/08/2017 4:04 AM 017 4:04 (specimen) EST AM EST Daphne Shahid MD CHEMISTRY ORDERABLES Performing Organization Address City/[facility]/[place] [address] Scan, Peripheral Blood (07/08/2017 [...] Webber MD HEMATOLOGY ORDERABLES Performing Organization Address City/[facility]/[place] [address] (ABNORMAL) Differential, Automated (07/08/2017 4:00 AM EST) Patholo gist Method Time Signature Neutrophils % 85.4 % [facility] Neutr Abs (ANC) 16.07 (H) 1.70 - [facility] 6.10 [facility] x10(3)/[facility] L LABORATORY Lymphocytes % 3.5 % [facility] Lymphocytes Abs 0.6 (L) 0.9 - 3.2 [facility] x10(3)/[facility] LABORATORY Monocytes % 10.4 % [facility] Monocyte Abs 2.0 (H) 0.3 - 0.9 [facility] x10(3)/[facility] LABORATORY Eosinophils % 0.0 % [facility] Eosinophils Abs 0.0 0.0 - 0.4 [facility] x10(3)/[facility] LABORATORY Basophils % 0.1 % [facility] Basophils Abs 0.0 0.0 - 0.1 [facility] x10(3)/[facility] LABORATORY Immature Gran % 0.60 % [...] Gran Abs 0.12 (H) 0.00 - 0.04 x10(3)/[facility] LABORATORY Specimen Anatomical Collection Method Collection Time Receive d Time (Source) Location / / Volume Laterality Blood specimen 07/08/2017 4:00 AM 017 4:09 (specimen) EST AM EST Resulting Agency Comment Spec In Lab Yuan Webber MD HEMATOLOGY ORDERABLES Performing Organization Address City/State/[place] [address] (ABNORMAL) Hemogram (07/08/2017 4:00 AM EST) Analysis Performed At Patho logist Time Signature WBC 18.8 (H) 4.0 - 9.5 [facility] x10(3)/[facility] LABORATORY RBC 4.00 (L) 4.58 - [facility] 5.54 [facility] x10(6)/[facility] LABORATORY Hemoglobin 11.9 (L) 13.7 - [facility] 16.[facility] gm/dL [facility] Hematocrit 35.9 (L) 40.5 - [facility] 48.5 % [facility] MCV 89.8 82.9 - [facility] 93.1 fL [facility] MCH 29.8 27.5 - [facility] 32.1 pg [facility] MCHC 33.1 32.0 - [place] 35.7 gm/dL [facility] Platelets 232 145 - 357 [facility] x10(3)/[facility] LABORATORY RDWSD 47.6 (H) 36.0 - [facility] 45.0 [facility] LABORATORY RDWCV 14.5 (H) 11.4 - [facility] 13.8 % [facility] MPV 9.5 7.6 - 12.9 [facility] LABORATORY nRBC % Auto 0.0 % [facility] nRBC Abs Auto 0.000 0.000 - [facility] 0.000 [facility] x10(3)/[facility] LABORATORY Specimen Anatomical Collection Method Collection Time Receive d Time (Source) Location / / Volume Laterality Blood specimen 07/08/2017 4:00 AM 017 4:09 (specimen) EST AM EST Resulting Agency Comment Spec In Lab Yuan Webber MD HEMATOLOGY ORDERABLES Performing Organization Address City/State/[place] [address] (ABNORMAL) Electrolytes panel (07/08/2017 4:00 AM EST) P athologist Signature Sodium 139 135 - 145 [facility] mmol/L [facility] Potassium 4.7 3.5 - 5.0 [facility] mmol/L [facility] Comment: result rechecked-JLK Please [...] - 15 mmol/L [facility] Specimen Anatomical Collection Method Collection Time Receive d Time (Source) Location / / Volume Laterality Blood specimen 07/08/2017 4:00 AM 017 4:10 (specimen) EST AM EST Resulting Agency Comment Spec In Lab Yuan Webber MD CHEMISTRY ORDERABLES Performing Organization Address City/[facility]/ZIP Code Phon e Number [address] (ABNORMAL) Cardiac Enzymes (LEB/CGP) (07/08/2017 4:00 AM EST) P athologist Signature Troponin-T 1.88 (H) 0.00 [facility] 0.[facility] ng/mL [facility] Comment: The 99th percentile [...] additional sample may be indicated. Reference: Third Gerlach Definition of Myocardial Infarction. Journal of the [place] [employer] 2012;60:1581-98 CK, Total 413 (H) 0 - 200 unit/L [facility] Comment: result rechecked-JLK Specimen Anatomical Collection Method Collection Time Receive d Time (Source) Location / / Volume Laterality Blood specimen 07/08/2017 4:00 AM 017 4:09 (specimen) EST AM EST Resulting Agency Comment Spec In Lab Yuan Webber MD CHEMISTRY ORDERABLES Performing Organization Address City/[facility]/[place] [address] (ABNORMAL) Glucose, fasting (07/08/2017 4:00 AM EST) P athologist Signature Glucose 287 (H) 65 - 99 [facility] Fasting mg/dL [facility] Comment: ?Fasting* Glucose Interpretive [...] of Diabetes Mellitus, Position Statement from the [place] [employer]. ??Diabete s Care, Volume 33, Supplement 1, Jul 2009 Specimen Anatomical Collection Method Collection Time Receive d Time (Source) Location / / Volume Laterality Blood specimen 07/08/2017 4:00 AM 017 4:09 (specimen) EST AM EST Resulting Agency Comment Spec In Lab Yuan Webber MD CHEMISTRY ORDERABLES Performing Organization Address City/State/[place] [address] (ABNORMAL) Creatinine (07/08/2017 4:00 AM EST) Analysis Performed At Patho logist Time Signature Creatinine 1.55 (H) 0.80 - [facility] 1.50 mg/dL [facility] Estimated GFR 44 (L) >=60 [facility] Comment: The reported eGFR should be multiplied b y 1.2 for patients. The MDRD is not an appropriate measure o f renal function for patients with body mass extremes or in patients with acute kidney failure. http://[email or web address].[email or web address]/DHnkdep http://[employer]/DHMCnkf Specimen Anatomical Collection Method Collection Time Receive d Time (Source) Location / / Volume Laterality Blood specimen 07/08/2017 4:00 AM 017 4:09 (specimen) EST AM EST Resulting Agency Comment Spec In Lab Yuan Webber MD CHEMISTRY ORDERABLES Performing Organization Address City/[facility]/ZIP Code Phon e Number [address] BUN (07/08/2017 4:00 AM EST) P athologist Signature BUN 16 10 - [facility] mg[facility]dL [facility] Specimen Anatomical Collection Method Collection Time Receive d Time (Source) Location / / Volume Laterality Blood specimen 07/08/2017 4:00 AM 017 4:09 (specimen) EST AM EST Resulting Agency Comment Spec In Lab Yuan Webber MD CHEMISTRY ORDERABLES Performing Organization Address [facility] Phon e Number [address] (ABNORMAL) POCT Glucose (07/08/2017 3:00 AM EST) athologist Signature POC Glucose 273 (H) 65 - 199 [facility] mg/dL [facility] Comment: Supplemental ranges: <140 mg/dL before meals <180 mg/dL all other times of the day Specimen Anatomical Collection Method Collection Time Receive d Time (Source) Location / / Volume Laterality Blood specimen 07/08/2017 3:00 AM 017 3:00 (specimen) EST AM EST Daphne Shahid MD POINT OF CARE TEST ORDERABLE S Performing Organization Address [facility]/[place] [address] (ABNORMAL) POCT Glucose (07/08/2017 1:57 AM EST) athologist Signature POC Glucose 288 (H) 65 - 199 [facility] mg/dL [facility] Comment: Supplemental ranges: <140 mg/dL before meals <180 mg/dL all other times of the day Specimen Anatomical Collection Method Collection Time Receive d Time (Source) Location / / Volume Laterality Blood specimen 07/08/2017 1:57 AM 017 1:57 (specimen) EST AM EST Daphne Shahid MD POINT OF CARE TEST ORDERABLE S Performing Organization Address City/State/[place] [address] (ABNORMAL) POCT Glucose (07/08/2017 1:01 AM EST) athologist Signature POC Glucose 315 (H) 65 - 199 [facility] mg/dL [facility] Comment: Supplemental ranges: <140 mg/dL before meals <180 mg/dL all other times of the day Specimen Anatomical Collection Method Collection Time Receive d Time (Source) Location / / Volume Laterality Blood specimen 07/08/2017 1:01 AM 017 1:01 (specimen) EST AM EST Daphne Shahid MD POINT OF CARE TEST ORDERABLE S Performing Organization Address City/State/[place] [address] (ABNORMAL) BLOOD GAS 2 ARTERIAL (07/08/2017 12:09 AM EST) athologist Signature pH Art 7.26 7.35 - [facility] (Critical) 7.45 [facility] Comment: Noted by instrument technician apprentice. pCO2 Art 41 35 - 45 mmHg [facility] pO2 Art 96 85 - 104 mmHg [facility] HCO3 Art 17.7 (L) 20.0 - 26.0 mmol/L [facility] BE Art -9.4 (L) -3.0 - 3.0 mmol/L [facility] Hgb Blood Gas 12.4 (L) 13.7 - 16.5 gm/dL [facility] O2HB Art 94.7 94.0 - 97.0 % [facility] COHB Art 0.2 % [...] 315 (H) 65 - 199 mg/dL [facility] Comment: Diabetes: >=200 mg/dL plus symp toms. Lactate WB 7.6 (Critical) 0.5 - 2.2 mmol/L [facility] Comment: Noted by instrument technician apprentice. FIO2 Art 40 % [facility] PF Ratio Art 240 [facility]ORY Specimen Anatomical Collection Method Collection Time Receive d Time (Source) Location / / Volume Laterality Blood specimen Arterial Draw / 07/08/2017 12:09 2016 5:31 (specimen) Unknown AM EST AM EST Resulting Agency Comment Spec In Lab Samy Maldonado MD CHEMISTRY ORDERABLES Performing Organization Address City/State/[place] [address] (ABNORMAL) POCT Glucose (07/07/2017 10:56 PM EST) P athologist Signature POC Glucose 292 (H) 65 - 199 [facility] mg/dL [facility] Comment: Supplemental ranges: <140 mg/dL before meals <180 mg/dL all other times of the day Specimen Anatomical Collection Method Collection Time Receive d Time (Source) Location / / Volume Laterality Blood specimen 07/07/2017 10:56 7 (specimen) PM EST 10:56 PM EST Daphne Shahid MD POINT OF CARE TEST ORDERABLE S Performing Organization Address City/State/[place] [address] (ABNORMAL) BLOOD GAS 2 ARTERIAL (07/07/2017 10:04 PM EST) athologist Signature pH Art 7.22 7.35 - [facility] (Critical) 7.45 [facility] Comment: Noted by instrument technician apprentice. pCO2 Art 42 35 - 45 mmHg [facility]ORY pO2 Art 94 85 - 104 mmHg [facility] HCO3 Art 16.9 (L) 20.0 - 26.0 mmol/L [facility] BE Art -10.7 (L) -3.0 - 3.0 mmol/L [facility] Hgb Blood Gas 13.0 (L) 13.7 - 16.5 gm/dL [facility] O2HB Art 93.8 (L) 94.0 - 97.0 % [facility] COHB Art 0.7 % [facility] Comment: Nonsmokers: 0.5-1.5% COHB Smokers: Variable, but usually less than 10% Toxic: 20-30% COHB Lethal: Greater than 60% COHB METHB Art 0.7 <=1.5 % [facility] Na Whole Blood 140 135 - 145 mmol/L [facility] K Whole Blood 3.3 (L) [...] 304 (H) 65 - 199 mg/dL [facility] Comment: Diabetes: >=200 mg/dL plus symp toms. Lactate WB 8.2 (Critical) 0.5 - 2.2 mmol/L [facility] Comment: Noted by instrument technician apprentice. FIO2 Art 40 % [facility] PF Ratio Art 235 [facility] Specimen Anatomical Collection Method Collection Time Receive d Time (Source) Location / / Volume Laterality Blood specimen 07/07/2017 10:04 7 (specimen) PM EST 10:04 PM EST Daphne Shahid MD CHEMISTRY ORDERABLES Performing Organization Address City/[facility]/[place] [address] (ABNORMAL) Hemoglobin (07/07/2017 10:00 PM EST) athologist Signature Hemoglobin 12.8 (L) 13.7 - [facility] 16.5 gm/dL [facility] Specimen Anatomical Collection Method Collection Time Receive d Time (Source) Location / / Volume Laterality Blood specimen 07/07/2017 10:00 7 (specimen) PM EST 10:13 PM EST Resulting Agency Comment Spec In Lab Yuan Webber MD HEMATOLOGY ORDERABLES Performing Organization Address City/[facility]/[place] [address] (ABNORMAL) Potassium (07/07/2017 10:00 PM EST) athologist Signature Potassium 3.4 (L) 3.5 - 5.0 [facility] mmol/L [facility] Comment: Please note: ??Patients [...] Webber MD CHEMISTRY ORDERABLES Performing Organization Address City/[facility]/[place] [address] (ABNORMAL) POCT Glucose (07/07/2017 8:49 PM EST) P athologist Signature POC Glucose 241 (H) 65 - 199 [facility] mg/dL [facility] Comment: Supplemental ranges: <140 mg/dL before meals <180 mg/dL all other times of the day Specimen Anatomical Collection Method Collection Time Receive d Time (Source) Location / / Volume Laterality Blood specimen 07/07/2017 8:49 PM 017 8:49 (specimen) EST PM EST Daphne Shahid MD POINT OF CARE TEST ORDERABLE S Performing Organization Address City/[facility]/[place] [address] Prepare Albumin 5% in [...] BROWN BLOOD BANK ORDERABLES Performing Organization Address City/[facility]/[place] [address] EKG 12 Lead (07/07/2017 7:17 PM EST) Component Value Ref Range Test Analysis Performed Pathologis t Method Time At Signature Ventricular rate 75 BPM MUSE SYSTEM Atrial Rate 75 BPM MUSE SYSTEM P-R Interval 168 ms MUSE SYSTEM QRS Duration 104 ms MUSE SYSTEM Q-T Interval 462 ms MUSE SYSTEM QTC Calculated 515 ms MUSE SYSTEM (Bezet) Calculated P [place] 52 degrees MUSE SYSTEM Calculated R [place] -40 degrees MUSE SYSTEM Calculated T [place] 39 degrees MUSE SYSTEM INTERPRETATION Normal sinus [...] Organization Address City/State/ZIP Code Phon e Number [employer] [facility] XR Chest PA or AP 1 [...] athologist Signature pH Art 7.21 7.35 - [facility] (Critical) 7.45 [facility] Comment: Noted by instrument technician apprentice. pCO2 Art 50 (H) 35 - 45 mmHg [facility]ORY pO2 Art 238 (H) 85 - 104 mmHg [facility] HCO3 Art 19.8 (L) 20.0 - 26.0 mmol/L [facility] BE Art -8.1 (L) -3.0 - 3.0 mmol/L [facility] Hgb Blood Gas 12.8 (L) 13.7 - 16.5 gm/dL [facility] O2HB Art 97.5 (H) 94.0 - 97.0 % [facility] COHB Art 0.5 % [facility] Comment: Nonsmokers: 0.5-1.5% COHB Smokers: Variable, but usually less than 10% Toxic: 20-30% COHB Lethal: Greater than 60% COHB METHB Art 0.7 <=1.5 % [facility] Na Whole Blood 140 135 - 145 mmol/L [facility] K Whole Blood 3.0 (Critical) 3.5 - 5.0 mmol/L [facility] Comment: Noted by instrument technician apprentice. Please note: Patients with WBC >100,000 may [...] 270 (H) 65 - 199 mg/dL [facility] Comment: Diabetes: >=200 mg/dL plus symp toms. Lactate WB 4.9 (Critical) 0.5 - 2.2 mmol/L [facility] Comment: Noted by instrument technician apprentice. FIO2 Art 100 % [facility] PF Ratio Art 238 [facility] Specimen Anatomical Collection Method Collection Time Receive d Time (Source) Location / / Volume Laterality Blood specimen 07/07/2017 6:57 PM 017 6:57 (specimen) EST PM EST Daphne Shahid MD CHEMISTRY ORDERABLES Performing Organization Address City/State/[place] [address] (ABNORMAL) BLOOD GAS 2 ARTERIAL (07/07/2017 5:31 PM EST) athologist Signature pH Art 7.29 7.35 - [facility] (Critical) 7.45 [facility] Comment: Noted by instrument technician apprentice. pCO2 Art 48 (H) 35 - 45 mmHg [facility]ORY pO2 Art 137 (H) 85 - 104 mmHg [facility] HCO3 Art 22.4 20.0 - 26.0 mmol/L [facility] BE Art -4.3 (L) -3.0 - 3.0 mmol/L [facility] Hgb Blood Gas 10.0 (L) 13.7 - 16.5 gm/dL [facility] O2HB Art 97.3 (H) 94.0 - 97.0 % [facility] COHB Art 0.3 % [facility] Comment: Nonsmokers: 0.5-1.5% COHB Smokers: Variable, but usually less than 10% Toxic: 20-30% COHB Lethal: Greater than 60% COHB METHB Art 0.3 <=1.5 % [facility] Na Whole Blood 132 (L) 135 - 145 mmol/L [facility] K Whole Blood 4.0 3.5 [...] 293 (H) 65 - 199 mg/dL [facility] Comment: Diabetes: >=200 mg/dL plus symp toms. Lactate WB 3.1 (H) 0.5 - 2.2 mmol/L [facility] Specimen Anatomical Collection Method Collection Time Receive d Time (Source) Location / / Volume Laterality Blood specimen 07/07/2017 5:31 PM 017 5:31 (specimen) EST PM EST Daphne Shahid MD CHEMISTRY ORDERABLES Performing Organization Address City/[facility] [place] [address] Fibrinogen (07/07/2017 5:30 PM EST) athologist Signature Fibrinogen 224 180 - 510 [facility] mg/dL [facility] Comment: Called by: JEET, [...] Perez MD HEMATOLOGY ORDERABLES Performing Organization Address City/[facility]/ZIP [facility] [place] [address] APTT (07/07/2017 5:30 PM EST) athologist Signature PTT 30 25 - 35 sec [facility] Comment: The recommended therapeutic range for fu ll dose, unfractionated heparin at [facility] is 80 ? 114 seconds. The use [...] Perez MD HEMATOLOGY ORDERABLES Performing Organization Address [facility]/ZIP [facility] [place] [address] (ABNORMAL) Prothrombin Time (07/07/2017 [...] Perez MD HEMATOLOGY ORDERABLES Performing Organization Address City/[facility] [place] [address] (ABNORMAL) Hemogram (07/07/2017 5:30 PM EST) P athologist Signature WBC 19.6 (H) 4.0 - 9.5 [facility] x[facility](3[facility] LABORATORY RBC 3.08 (L) 4.58 - [facility] 5.54 [facility] x10(6)/[facility] LABORATORY Hemoglobin 9.2 (L) 13.7 - [facility] 16.5 gm/dL [facility] LABORATORY Hematocrit 28.0 (L) 40.5 - [facility] RYAN 48.5 % [facility] Comment: This result has been called to MONICA MORAN by DONALD GROSSMAN on 07 07 2017 at 1759, and has been read back. MCV 90.9 82.9 - 93.1 fL [facility] MCH 29.9 27.5 - 32.1 pg [facility] MCHC 32.9 32.0 - 35.7 gm/dL [facility] Platelets 155 145 - 357 x10(3)/mcL [facility] RDWSD 46.5 (H) 36.0 - 45.0 [facility] LABORATORY RDWCV 14.1 (H) 11.4 - 13.8 % [facility] MPV 9.5 7.6 - 12.9 [facility] LABORATORY nRBC % Auto 0.0 % [facility] LABORATORY nRBC Abs Auto 0.000 0.000 - 0.000 x10(3)/[facility] LABORATORY Specimen Anatomical Collection Method Collection Time Receive d Time (Source) Location / / Volume Laterality Blood specimen 07/07/2017 5:30 PM 017 5:34 (specimen) EST PM EST Resulting Agency Comment Spec In Lab Yifan Perez MD HEMATOLOGY ORDERABLES Performing Organization Address City/[facility]/[place] [address] Prepare Platelets, Apheresis (07/07/2017 5:00 PM EST) P athologist Signature Dispensed? Yes [facility]OR[facility]ORY Specimen Anatomical Collection Method Collection Time Receive d Time (Source) Location / / Volume Laterality Blood specimen 07/07/2017 5:00 PM 017 4:58 (specimen) EST PM EST Daphne Shahid MD BLOOD BANK ORDERABLES Performing Organization Address City/[facility]/ZIP Code Phon e Number [address] Platelet count (07/07/2017 4:55 PM EST) P athologist Signature Platelets 177 145 - 357 [facility] x10(3)/[facility] LABORATORY Plat Immature 1.5 0.0 - 7.4 [facility] % % [facility] Comment: Limitation of the Immature Platelet Frac tion (IPF)-May be less reliable when the platelet count is less than 53h896/u L due to statistical imprecision. The IPF [...] in a decreased state of production. References: [employer] The Clinical Value of the Immature Platelet Fraction (IPF) in Cell Recovery Document Number 10-1143 12/2010 [employer] The Role of the Imm ature [...] Address City/State/[place] [address] (ABNORMAL) Hemoglobin and Hematocrit, blood (07/07/2017 4:55 PM EST) P athologist Signature Hemoglobin 9.1 (L) 13.7 - 16.5 [facility] gm/dL [facility] Comment: This result has [...] Address City/State/[place] [address] (ABNORMAL) BLOOD GAS 2 ARTERIAL (07/07/2017 4:38 PM EST) Analysis Performed At Patho logist Time Signature pH Art 7.37 7.35 - [facility] 7.45 [facility] LABORATORY pCO2 Art 44 35 - 45 [facility] LABORATORY pO2 Art 322 (H) 85 - 104 [facility] LABORATORY HCO3 Art 24.9 20.0 - [facility] 26.0 [facility] mmol/L [facility] LABORATORY BE Art -0.4 -3.0 - 3.0 [facility] mmol/L [facility] LABORATORY Hgb Blood Gas 10.1 (L) 13.7 - [facility] 16.5 gm/dL [facility] O2HB Art 98.7 (H) 94.0 - [facility] 97.0 % [facility]ORATORY COHB Art 0.1 % [facility] Comment: Nonsmokers: 0.5-1.5% COHB Smokers: Variable, but usually less than 10% Toxic: 20-30% COHB Lethal: Greater than 60% COHB METHB Art 0.3 <=1.5 % [facility] Na Whole Blood 130 (L) 135 - 145 mmol/L [facility] K Whole Blood 5.7 (H) 3.5 - 5.0 mmol/L [facility] Comment: Please note: Patients with WBC >100,000 may have falsely elevated Potassium levels. Contact the Clinical Chemistry L aboratory if there are any questions. ICa Whole Blood 0.89 (Critical) 1.15 - 1.33 mmol/L [facility] Comment: Noted by instrument technician apprentice. Note: ??Total bilirubin higher than 20 m g/dL may lead to falsely low ionized calcium. CL Whole Blood 101 98 - 107 mmol/L [facility] Gluc Whole Bld 295 (H) 65 - 199 mg/dL [facility] Comment: Diabetes: >=200 mg/dL plus symp toms. Lactate WB 1.7 0.5 - 2.2 mmol/L [facility] Specimen Anatomical Collection Method Collection Time Receive d Time (Source) Location / / Volume Laterality Blood specimen 07/07/2017 4:38 PM 017 4:38 (specimen) EST PM EST Daphne Shahid MD CHEMISTRY ORDERABLES Performing Organization Address City/State/[place] [address] (ABNORMAL) BLOOD GAS 2 VENOUS (07/07/2017 4:06 PM EST) Analysis Performed At Patho logist Time Signature pH Cody 7.31 (L) 7.32 - [facility] 7.42 [facility] LABORATORY pCO2 Cody 47 41 - 51 [facility] LABORATORY pO2 Cody 53 (H) 25 - 40 [facility] LABORATORY HCO3 Cody 22.7 mmol/L [facility] BE Cody -3.7 mmol/L [facility] Hgb Blood Gas 10.2 (L) 13.7 - [facility] 16.5 gm/dL [facility] O2HB Cody 81.0 % [facility] COHB Cody 1.0 % [facility] Comment: Nonsmokers: 0.5-1.5% COHB Smokers: Variable, but usually less than 10% Toxic: 20-30% COHB Lethal: Greater than 60% COHB METHB Cody 0.3 <=1.5 % [facility] Na Whole Blood 132 (L) 135 - 145 mmol/L [facility] K Whole Blood 5.3 (H) 3.5 - 5.0 mmol/L [facility] Comment: Please note: Patients with WBC >100,000 may have falsely elevated Potassium levels. Contact the Clinical Chemistry L aboratory if there are any questions. ICa Whole Blood 0.90 (Critical) 1.15 - 1.33 mmol/L [facility] Comment: Noted by instrument technician apprentice. Note: ??Total bilirubin higher than 20 m g/dL may lead to falsely low ionized calcium. CL Whole Blood 100 98 - 107 mmol/L [facility] Gluc Whole Bld 231 (H) 65 - 199 mg/dL [facility] Comment: Diabetes: >=200 mg/dL plus symp toms Lactate WB 1.1 0.5 - 2.2 mmol/L [facility]OR[facility] BGas Source Venous [facility] LAB[facility]ORY Specimen Anatomical Collection Method Collection Time Receive d Time (Source) Location / / Volume Laterality Blood specimen 07/07/2017 4:06 PM 017 4:06 (specimen) EST PM EST Daphne Shahid MD CHEMISTRY ORDERABLES Performing Organization Address City/State/ZIP Code [place] [address] (ABNORMAL) BLOOD GAS 2 ARTERIAL (07/07/2017 4:05 PM EST) Analysis Performed At Patho logist Time Signature pH Art 7.36 7.35 - [facility] 7.45 [facility] LABORATORY pCO2 Art 40 35 - 45 [facility] LABORATORY pO2 Art 282 (H) 85 - 104 [facility] LABORATORY HCO3 Art 22.1 20.0 - [facility] 26.0 [facility] mmol/L [facility] LABORATORY BE Art -3.4 (L) -3.0 - 3.0 [facility] mmol/L [facility] LABORATORY Hgb Blood Gas 10.2 (L) 13.7 - [facility] 16.5 gm/dL [facility] LABORATORY O2HB Art 98.4 (H) 94.0 - [facility] 97.0 % [facility] LABORATORY COHB Art 0.3 % [facility] LABORATORY Comment: Nonsmokers: 0.5-1.5% COHB Smokers: Variable, but usually less than 10% Toxic: 20-30% COHB Lethal: Greater than 60% COHB METHB Art 0.3 <=1.5 % [facility] LABORATORY Na Whole Blood 131 (L) 135 - 145 mmol/L [facility] LABORATORY K Whole Blood 5.4 (H) 3.5 - 5.0 mmol/L [facility] LABOR[facility] Comment: Please note: Patients with WBC >100,000 may have falsely elevated Potassium levels. Contact the Clinical Chemistry L aboratory if there are any questions. ICa Whole Blood 0.86 (Critical) 1.15 - 1.33 mmol/L [facility] LABORATORY Comment: Noted by instrument technician apprentice. Note: ??Total bilirubin higher than 20 m g/dL may lead to falsely low ionized calcium. CL Whole Blood 101 98 - 107 mmol/L [facility]OR[facility] Gluc Whole Bld 260 (H) 65 - 199 mg/dL [facility] LABORATORY Comment: Diabetes: >=200 mg/dL plus symp toms. Lactate WB 1.4 0.5 - 2.2 mmol/L [facility] LABORATORY Specimen Anatomical Collection Method Collection Time Receive d Time (Source) Location / / Volume Laterality Blood specimen 07/07/2017 4:05 PM 017 4:05 (specimen) EST PM EST Daphne Shahid MD CHEMISTRY ORDERABLES Performing Organization Address City/State/[place] [address] (ABNORMAL) BLOOD GAS 2 ARTERIAL (07/07/2017 2:29 PM EST) Analysis Performed At Patho logist Time Signature pH Art 7.43 7.35 - [facility] 7.45 [facility] LABORATORY pCO2 Art 36 35 - 45 [facility] LABORATORY pO2 Art 221 (H) 85 - 104 [facility] LABORATORY HCO3 Art 23.2 20.0 - [facility] 26.0 [facility] mmol/L [facility] LABORATORY BE Art -1.2 -3.0 - 3.0 [facility] mmol/L [facility] LABORATORY Hgb Blood Gas 13.9 13.7 - [facility] 16.5 gm/dL [facility] O2HB Art 97.8 (H) 94.0 - [facility] 97.0 % [facility] LABORATORY COHB Art 1.1 % [facility]ITY [...] Bld 184 65 - 199 mg/dL [facility] LABOR[facility] Comment: Diabetes: >=200 mg/dL plus symp toms. Lactate WB 1.5 0.5 - 2.2 mmol/L [facility] LABORATORY Specimen Anatomical Collection Method Collection Time Receive d Time (Source) Location / / Volume Laterality Blood specimen 07/07/2017 2:29 PM 017 2:29 (specimen) EST PM EST Daphne Shahid MD CHEMISTRY ORDERABLES Performing Organization Address City/State/[place] [phone] Prepare Coag Factors (Non-Hemophilia) [...] City/State/[place] [phone] Prepare RBC (07/07/2017 1:10 PM EST) P athologist Signature Dispensed? Yes [facility] LABORATORY Specimen Anatomical Collection Method Collection Time Receive d Time (Source) Location / / Volume Laterality Blood specimen 07/07/2017 1:10 PM 017 1:05 (specimen) EST PM EST Daphne Shahid MD BLOOD BANK ORDERABLES Performing Organization Address City/State/[place] [address] POCT Glucose (07/07/2017 11:56 AM EST) athologist Signature POC Glucose 188 65 - 199 [facility] mg[facility]dL [facility] LAB[facility]ORY Comment: Supplemental ranges: <140 mg/dL before meals <180 mg/dL all other times of the day Specimen Anatomical Collection Method Collection Time Receive d Time (Source) Location / / Volume Laterality Blood specimen 07/07/2017 11:56 7 (specimen) AM EST 11:56 AM EST Daphne Shahid MD POINT OF CARE TEST ORDERABLE S Performing Organization Address City/State/ZIP Code Phon e Number [address] POCT Glucose (07/07/2017 11:05 AM EST) athologist Signature POC Glucose 168 65 - 199 [facility] mg/dL [facility] LABOR[facility]ORY Comment: Supplemental ranges: <140 mg/dL before meals <180 mg/dL all other times of the day Specimen Anatomical Collection Method Collection Time Receive d Time (Source) Location / / Volume Laterality Blood specimen 07/07/2017 11:05 7 (specimen) AM EST 11:05 AM EST Daphne Shahid MD POINT OF CARE TEST ORDERABLE S Performing Organization Address City/State/ZIP Code Phon e Number [address] POCT Glucose (07/07/2017 10:02 AM EST) athologist Signature POC Glucose 191 65 - [address] [facility] mg/dL [facility] Comment: Supplemental ranges: <140 mg/dL before meals <180 mg/dL all other times of the day Specimen Anatomical Collection Method Collection Time Receive d Time (Source) Location / / Volume Laterality Blood specimen 07/07/2017 10:02 7 (specimen) AM EST 10:02 AM EST Daphne Shahid MD POINT OF CARE TEST ORDERABLE S Performing Organization Address City/State/[place] [phone] POCT Glucose (07/07/2017 7:53 AM EST) athologist Signature POC Glucose 178 65 - 199 [place] mg/dL [facility] LABOR[facility]ORY Comment: Supplemental ranges: <140 mg/dL before meals <180 mg/dL all other times of the day Specimen Anatomical Collection Method Collection Time Receive d Time (Source) Location / / Volume Laterality Blood specimen 07/07/2017 7:53 AM 017 7:53 (specimen) EST AM EST Daphne Shahid MD POINT OF CARE TEST ORDERABLE S Performing Organization Address City/State/[place] [address] POCT Glucose (07/07/2017 7:03 AM EST) athologist Signature POC Glucose 188 65 - 199 [facility] mg/dL [facility] LABORATORY Comment: Supplemental ranges: <140 mg/dL before meals <180 mg/dL all other times of the day Specimen Anatomical Collection Method Collection Time Receive d Time (Source) Location / / Volume Laterality Blood specimen 07/07/2017 7:03 AM 017 7:03 (specimen) EST AM EST Daphne Shahid MD POINT OF CARE TEST ORDERABLE S Performing Organization Address City/State/ZIP Code Phon e Number [address] (ABNORMAL) POCT Glucose (07/07/2017 6:17 AM EST) athologist Signature POC Glucose 207 (H) 65 - 199 [facility] mg/dL [facility] LAB[facility]ORY Comment: Supplemental ranges: <140 mg/dL before meals <180 mg/dL all other times of the day Specimen Anatomical Collection Method Collection Time Receive d Time (Source) Location / / Volume Laterality Blood specimen 07/07/2017 6:17 AM 017 6:17 (specimen) EST AM EST Daphne Shahid MD POINT OF CARE TEST ORDERABLE S Performing Organization Address City/State/ZIP Code Phon e Number [place] [phone] Differential, Automated (07/07/2017 5:15 AM EST) P athologist Signature Neutrophils % 69.7 % [facility] LABORATORY Neutr Abs (ANC) 5.32 1.70 - [facility] 6.10 [facility] x10(3)[facility] LABORATORY Lymphocytes % 16.3 % [facility] LABORATORY Lymphocytes Abs 1.2 0.9 - 3.2 [facility] x10(3)/[facility] LABORATORY Monocytes % 10.5 % [facility] LABORATORY Monocyte Abs 0.8 0.3 - 0.9 [facility] x10(3)/[facility] LABORATORY Eosinophils % 2.5 % [facility] LABORATORY Eosinophils Abs 0.2 0.0 - 0.4 [facility] x10(3)/[facility] LABORATORY Basophils % 0.7 % [facility] LABORATORY Basophils Abs 0.0 0.0 - 0.1 [facility] x10(3)/[facility] LABORATORY Immature Gran % 0.30 % UNIVERSITY [...] Melisa Gran Abs 0.02 0.00 - 0.04 x10(3)/[facility] LABORATORY Specimen Anatomical Collection Method Collection Time Receive d Time (Source) Location / / Volume Laterality Blood specimen 07/07/2017 5:15 AM 017 5:34 (specimen) EST AM EST Resulting Agency Comment Spec In Lab Daphne Shahid MD HEMATOLOGY ORDERABLES Performing Organization Address City/State/[place] [phone] (ABNORMAL) Hemogram (07/07/2017 5:15 AM EST) Analysis Performed At Patho logist Time Signature WBC 7.6 4.0 - 9.5 [facility](3[facility] LABORATORY RBC 4.82 4.58 - [place] 5.54 [facility] x10(6)/[facility] LABORATORY Hemoglobin 14.4 13.7 - [facility] 16.5 gm/dL [facility] LAB[facility]ORY Hematocrit 42.1 40.5 - [facility] 48.5 % [facility] LABORATORY MCV 87.3 82.9 - [facility] 93.1 [facility] LABORATORY MCH 29.9 27.5 - [place] 32.1 pg [facility] LABORATORY MCHC 34.2 32.0 - [facility] 35.7 gm/dL [facility] LABORATORY Platelets 188 145 - 357 [facility] x10(3)/[facility] LABORATORY RDWSD 45.1 (H) 36.0 - [facility] 45.0 [facility] LABORATORY RDWCV 14.3 (H) 11.4 - [facility] 13.8 % [facility] LABORATORY MPV 9.4 7.6 - 12.9 [facility] LABORATORY nRBC % Auto 0.0 % [facility] LABORATORY nRBC Abs Auto 0.000 0.000 - [facility] RYAN 0.000 [facility] x10(3)/[facility] LABORATORY Specimen Anatomical Collection Method Collection Time Receive d Time (Source) Location / / Volume Laterality Blood specimen 07/07/2017 5:15 AM 017 5:34 (specimen) EST AM EST Resulting Agency Comment Spec In Lab Daphne Shahid MD HEMATOLOGY ORDERABLES Performing Organization Address City/State/[place] [phone] (ABNORMAL) APTT (07/07/2017 5:15 AM EST) P athologist Signature PTT 69 (H) 25 - 35 sec [facility] LABORATORY Comment: The recommended therapeutic range for fu ll dose, unfractionated heparin at [facility] is 80 ? 114 seconds. The use [...] Shahid MD HEMATOLOGY ORDERABLES Performing Organization Address City/[facility]/ZIP Code Phon e Number [address] Magnesium (07/07/2017 5:15 AM EST) athologist Signature Magnesium 0.94 0.69 - 1.07 [facility] mmol/L [facility] LABORATORY Specimen Anatomical Collection Method Collection Time Receive d Time (Source) Location / / Volume Laterality Blood specimen 07/07/2017 5:15 AM 017 5:34 (specimen) EST AM EST Resulting Agency Comment Spec In Lab Daphne Shahid MD CHEMISTRY ORDERABLES Performing Organization Address City/[facility] Code Phon e Number [address] (ABNORMAL) Basic Metabolic Panel (non-fasting) (07/07/2017 5:15 AM EST) athologist Signature Glucose Lvl 203 (H) 65 - 199 [facility] mg/dL [facility] LABORATORY Comment: Diabetes: >=200 mg/dL plus symp toms BUN 15 10 - 20 mg/dL [facility] LABORATORY Creatinine 1.09 0.80 - 1.50 mg/dL [facility] LABORATORY Sodium 142 135 - 145 mmol/L [facility] LABORATORY Potassium 4.4 3.5 - 5.0 mmol/L [facility] [...] [facility] Estimated GFR >60 >=60 [facility] LABORATORY Comment: The reported eGFR should be multiplied b y 1.2 for patients. The MDRD is not an appropriate measure o f renal function for patients with body mass extremes or in patients with acute kidney failure. http://[employer]oon[employer]/DHnkdep http://[employer]/DHMCnkf Specimen Anatomical Collection Method Collection Time Receive d Time (Source) Location / / Volume Laterality Blood specimen 07/07/2017 5:15 AM 017 5:34 (specimen) EST AM EST Resulting Agency Comment Spec In Lab Daphne Shahid MD CHEMISTRY ORDERABLES Performing Organization Address City/State/[place] [address] (ABNORMAL) Cardiac Enzymes (LEB/CGP) (07/07/2017 5:15 AM EST) P athologist Signature Troponin-T 2.07 (H) 0.00 - [facility] 0.00 ng/mL [facility] LABORATORY Comment: The 99th percentile [...] additional sample may be indicated. Reference: Third Gerlach Definition of Myocardial Infarction. Journal of the [place] [employer] 2012;60:1581-98 CK, Total 88 0 - 200 unit/L [facility] LABORATORY Specimen Anatomical Collection Method Collection Time Receive d Time (Source) Location / / Volume Laterality Blood specimen 07/07/2017 5:15 AM 017 5:34 (specimen) EST AM EST Resulting Agency Comment Spec In Lab Daphne Shahid MD CHEMISTRY ORDERABLES Performing Organization Address City/[facility]/ZIP [facility] Phon e Number [address] POCT Glucose (07/07/2017 5:01 AM EST) athologist Signature POC Glucose 182 65 - 199 [facility] mg/dL [facility] LABORATORY Comment: Supplemental ranges: <140 mg/dL before meals <180 mg/dL all other times of the day Specimen Anatomical Collection Method Collection Time Receive d Time (Source) Location / / Volume Laterality Blood specimen 07/07/2017 5:01 AM 017 5:01 (specimen) EST AM EST Daphne Shahid MD POINT OF CARE TEST ORDERABLE S Performing Organization Address City/[facility]/ZIP [facility] Phon e Number [address] POCT Glucose (07/07/2017 4:08 AM EST) athologist Signature POC Glucose 199 65 - 199 [facility] mg/dL [facility]ORY Comment: Supplemental ranges: <140 mg/dL before meals <180 mg/dL all other times of the day Specimen Anatomical Collection Method Collection Time Receive d Time (Source) Location / / Volume Laterality Blood specimen 07/07/2017 4:08 AM 017 4:08 (specimen) EST AM EST Daphne Shahid MD POINT OF CARE TEST ORDERABLE S Performing Organization Address City/[facility]/[place] [address] POCT Glucose (07/07/2017 3:03 AM EST) P athologist Signature POC Glucose 188 65 - 199 [facility] mg/dL [facility] LABOR[facility]ORY Comment: Supplemental ranges: <140 mg/dL before meals <180 mg/dL all other times of the day Specimen Anatomical Collection Method Collection Time Receive d Time (Source) Location / / Volume Laterality Blood specimen 07/07/2017 3:03 AM 017 3:03 (specimen) EST AM EST Daphne Shahid MD POINT OF CARE TEST ORDERABLE S Performing Organization Address City/[facility]/[place] [address] (ABNORMAL) POCT Glucose (07/07/2017 2:08 AM EST) athologist Signature POC Glucose 200 (H) 65 - 199 [facility] mg/dL [facility] LABOR[facility]ORY Comment: Supplemental ranges: <140 mg/dL before meals <180 mg/dL all other times of the day Specimen Anatomical Collection Method Collection Time Receive d Time (Source) Location / / Volume Laterality Blood specimen 07/07/2017 2:08 AM 017 2:08 (specimen) EST AM EST Daphne Shahid MD POINT OF CARE TEST ORDERABLE S Performing Organization Address City/State/[place] [address] (ABNORMAL) POCT Glucose (07/07/2017 1:31 AM EST) P athologist Signature POC Glucose 209 (H) 65 - 199 [facility] mg/dL [facility] LAB[facility]ORY Comment: Supplemental ranges: <140 mg/dL before meals <180 mg/dL all other times of the day Specimen Anatomical Collection Method Collection Time Receive d Time (Source) Location / / Volume Laterality Blood specimen 07/07/2017 1:31 AM 017 1:31 (specimen) EST AM EST Daphne Shahid MD POINT OF CARE TEST ORDERABLE S Performing Organization Address City/State/ZIP Code Phon e Number [place] [id number] XR Chest PA or [...] Signature POC Glucose 161 65 - 199 [facility] mg/dL [facility] LABORATORY Comment: Supplemental ranges: <140 mg/dL before meals <180 mg/dL all other times of the day Specimen Anatomical Collection Method Collection Time Receive d Time (Source) Location / / Volume Laterality Blood specimen 07/07/2017 12:07 7 (specimen) AM EST 12:07 AM EST Daphne Shahid MD POINT OF CARE TEST ORDERABLE S Performing Organization Address City/State/[place] [address] (ABNORMAL) APTT (07/07/2017 12:00 AM EST) athologist Signature PTT 103 (H) 25 - 35 sec [facility]OR[facility]ORY Comment: The recommended therapeutic range for fu ll dose, unfractionated heparin at [facility] is 80 ? 114 seconds. The use [...] Shahid MD HEMATOLOGY ORDERABLES Performing Organization Address [facility]/[place] [address] POCT Glucose (07/06/2017 9:55 PM EST) athologist Signature POC Glucose 109 65 - 199 [facility] mg/dL [facility] Comment: Supplemental ranges: <140 mg/dL before meals <180 mg/dL all other times of the day Specimen Anatomical Collection Method Collection Time Receive d Time (Source) Location / / Volume Laterality Blood specimen 07/06/2017 9:55 PM 017 9:55 (specimen) EST PM EST Daphne Shahid MD POINT OF CARE TEST ORDERABLE S Performing Organization Address City/[facility]/ZIP Code Phon e Number [address] POCT Glucose (07/06/2017 9:04 PM EST) athologist Signature POC Glucose 120 65 - 199 [facility] mg/dL [facility] LAB[facility]ORY Comment: Supplemental ranges: <140 mg/dL before meals <180 mg/dL all other times of the day Specimen Anatomical Collection Method Collection Time Receive d Time (Source) Location / / Volume Laterality Blood specimen 07/06/2017 9:04 PM 017 9:04 (specimen) EST PM EST Daphne Shahid MD POINT OF CARE TEST ORDERABLE S Performing Organization Address City/[facility]/[place] [address] POCT Glucose (07/06/2017 7:45 PM EST) athologist Signature POC Glucose 158 65 - 199 [facility] mg/dL [facility] Comment: Supplemental ranges: <140 mg/dL before meals <180 mg/dL all other times of the day Specimen Anatomical Collection Method Collection Time Receive d Time (Source) Location / / Volume Laterality Blood specimen 07/06/2017 7:45 PM 017 7:45 (specimen) EST PM EST Daphne Shahid MD POINT OF CARE TEST ORDERABLE S Performing Organization Address City/[facility]/[place] [address] Potassium (07/06/2017 7:40 PM EST) athologist [facility] Potassium 3.9 3.5 - 5.0 [facility] mmol/L [facility] LABOR[facility]ORY Comment: Please note: ??Patients [...] Shahid MD CHEMISTRY ORDERABLES Performing Organization Address City/[facility]/[place] [address] (ABNORMAL) Cardiac Enzymes (LEB/CGP) (07/06/2017 7:40 PM EST) athologist Signature Troponin-T 2.27 (H) 0.00 - [facility] 0.00 ng/mL [facility] Comment: The 99th percentile [...] additional sample may be indicated. Reference: Third Gerlach Definition of Myocardial Infarction. Journal of the [place] [employer] 2012;60:1581-98 CK, Total 93 0 - 200 unit/L [facility]OR[facility]ORY Specimen Anatomical Collection Method Collection Time Receive d Time (Source) Location / / Volume Laterality Blood specimen 07/06/2017 7:40 PM 017 7:52 (specimen) EST PM EST Resulting Agency Comment Spec In Lab Daphne Shahid MD CHEMISTRY ORDERABLES Performing Organization Address City/[facility]/[place] [address] (ABNORMAL) POCT Glucose (07/06/2017 7:13 PM EST) P athologist Signature POC Glucose 200 (H) 65 - 199 [facility] mg/dL [facility]ORY Comment: Supplemental ranges: <140 mg/dL before meals <180 mg/dL all other times of the day Specimen Anatomical Collection Method Collection Time Receive d Time (Source) Location / / Volume Laterality Blood specimen 07/06/2017 7:13 PM 017 7:13 (specimen) EST PM EST Daphne Shahid MD POINT OF CARE TEST ORDERABLE S Performing Organization Address City/State/[place] [address] (ABNORMAL) APTT (07/06/2017 6:15 PM EST) athologist Signature PTT 94 (H) 25 - 35 sec [facility] Comment: The recommended therapeutic range for fu ll dose, unfractionated heparin at [facility] is 80 ? 114 seconds. The use [...] Shahid MD HEMATOLOGY ORDERABLES Performing Organization Address City/[facility]/[place] [address] (ABNORMAL) POCT Glucose (07/06/2017 6:03 PM EST) athologist Signature POC Glucose 236 (H) 65 - 199 [facility] mg/dL [facility] Comment: Supplemental ranges: <140 mg/dL before meals <180 mg/dL all other times of the day Specimen Anatomical Collection Method Collection Time Receive d Time (Source) Location / / Volume Laterality Blood specimen 07/06/2017 6:03 PM 017 6:03 (specimen) EST PM EST Daphne Shahid MD POINT OF CARE TEST ORDERABLE S Performing Organization Address City/State/[place] [address] (ABNORMAL) POCT Glucose (07/06/2017 5:01 PM EST) athologist Signature POC Glucose 235 (H) 65 - 199 [facility] mg/dL [facility] Comment: Supplemental ranges: <140 mg/dL before meals <180 mg/dL all other times of the day Specimen Anatomical Collection Method Collection Time Receive d Time (Source) Location / / Volume Laterality Blood specimen 07/06/2017 5:01 PM 017 5:01 (specimen) EST PM EST Daphne Shahid MD POINT OF CARE TEST ORDERABLE S Performing Organization Address City/[facility]/ZIP Code Phon e Number [address] (ABNORMAL) POCT Glucose (07/06/2017 4:06 PM EST) athologist Signature POC Glucose 202 (H) 65 - 199 [facility] mg/dL [facility] Comment: Supplemental ranges: <140 mg/dL before meals <180 mg/dL all other times of the day Specimen Anatomical Collection Method Collection Time Receive d Time (Source) Location / / Volume Laterality Blood specimen 07/06/2017 4:06 PM 017 4:06 (specimen) EST PM EST Daphne Shahid MD POINT OF CARE TEST ORDERABLE S Performing Organization Address City/[facility]/[place] [address] POCT Glucose (07/06/2017 2:59 PM EST) athologist Signature POC Glucose 178 65 - 199 [facility] mg[facility]dL [facility] Comment: Supplemental ranges: <140 mg/dL before meals <180 mg/dL all other times of the day Specimen Anatomical Collection Method Collection Time Receive d Time (Source) Location / / Volume Laterality Blood specimen 07/06/2017 2:59 PM 017 2:59 (specimen) EST PM EST Daphne Shahid MD POINT OF CARE TEST ORDERABLE S Performing Organization Address City/[facility]/[place] [address] (ABNORMAL) Cardiac Enzymes (LEB/CGP) (07/06/2017 2:10 PM EST) athologist Signature Troponin-T 2.34 (H) 0.00 - [place] 0.00 ng/mL [facility] Comment: The 99th percentile [...] additional sample may be indicated. Reference: Third Gerlach Definition of Myocardial Infarction. Journal of the [place] College [employer]iology 2012;60:1581-98 CK, Total 101 0 - 200 unit/L [facility] Specimen Anatomical Collection Method Collection Time Receive d Time (Source) Location / / Volume Laterality Blood specimen 07/06/2017 2:10 PM 017 2:26 (specimen) EST PM EST Resulting Agency Comment Spec In Lab Daphne Shahid MD CHEMISTRY ORDERABLES Performing Organization Address City/[facility]/ZIP Code Phon e Number [address] POCT Glucose (07/06/2017 2:08 PM EST) P athologist Signature POC Glucose 192 65 - 199 [facility] mg/dL [facility] Comment: Supplemental ranges: <140 mg/dL before meals <180 mg/dL all other times of the day Specimen Anatomical Collection Method Collection Time Receive d Time (Source) Location / / Volume Laterality Blood specimen 07/06/2017 2:08 PM 017 2:08 (specimen) EST PM EST Daphne Shahid MD POINT OF CARE TEST ORDERABLE S Performing Organization Address City/[facility]/[place] [address] POCT Glucose (07/06/2017 1:04 PM EST) athologist Signature POC Glucose 162 65 - 199 [facility] mg/dL [facility] Comment: Supplemental ranges: <140 mg/dL before meals <180 mg/dL all other times of the day Specimen Anatomical Collection Method Collection Time Receive d Time (Source) Location / / Volume Laterality Blood specimen 07/06/2017 1:04 PM 017 1:04 (specimen) EST PM EST Daphne Shahid MD POINT OF CARE TEST ORDERABLE S Performing Organization Address City/State/ZIP Code Phon e Number [address] POCT Glucose (07/06/2017 12:05 PM EST) athologist Signature POC Glucose 196 65 - 199 [facility] Comment: Supplemental ranges: <140 mg/dL before meals <180 mg/dL all other times of the day Specimen Anatomical Collection Method Collection Time Receive d Time (Source) Location / / Volume Laterality Blood specimen 07/06/2017 12:05 7 (specimen) PM EST 12:05 PM EST Daphne Shahid MD POINT OF CARE TEST ORDERABLE S Performing Organization Address City/State/ZIP Code Phon e Number [address] EKG 12 Lead (07/06/2017 12:00 PM EST) Component Value Ref Range Test Analysis Performed Pathologis t Method Time At Signature Ventricular rate 91 BPM MUSE SYSTEM Atrial Rate 91 BPM MUSE SYSTEM P-R Interval 140 ms MUSE SYSTEM QRS Duration 94 ms MUSE SYSTEM Q-T Interval 394 ms MUSE SYSTEM QTC Calculated 484 ms MUSE SYSTEM (Bezet) Calculated P [place] 36 degrees MUSE SYSTEM Calculated R [place] -19 degrees MUSE SYSTEM Calculated T [place] 104 degrees MUSE SYSTEM INTERPRETATION Normal sinus rhythm MUSE SYSTEM 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) ST & T wave abnormality, consider lateral ischemia Abnormal ECG When compared with ECG of 05-JUL-2017 20:39, No significant change was found Confirmed by MD Verma Gregory A. ([id number]) on 07/06/2017 5:07:33 PM Specimen Anatomical Collection Method Collection Time Receive d Time (Source) Location / / Volume Laterality 07/06/2017 12:00 07/06/2017 5:07 PM EST PM EST Daphne Shahid MD ECG ORDERABLES Performing Organization Address City/State/ZIP Code Phon e Number MUSE SYSTEM ABORH Recheck Status (07/06/2017 12:00 PM EST) [facility] Method Time Signature ABORH Type Completed [facility] LABORATORY Specimen Anatomical Collection Method Collection Time Receive d Time (Source) Location / / Volume Laterality Blood specimen 07/06/2017 12:00 7 (specimen) PM EST 12:24 PM EST Resulting Agency Comment Spec In Lab Daphne Shahid MD BLOOD BANK ORDERABLES Performing Organization Address City/[facility]/ZIP Code Phon e Number [address] Antibody screen (07/06/2017 12:00 PM EST) [facility] Method Time Signature Ab Screen Negative [facility] LABORATORY Expires at 07/09/2017 [place] [id number] on: [facility] Specimen Anatomical Collection Method Collection Time Receive d Time (Source) Location / / Volume Laterality Blood specimen 07/06/2017 12:00 7 (specimen) PM EST 12:24 PM EST Resulting Agency Comment Spec In Lab Daphne Shahid MD BLOOD BANK ORDERABLES Performing Organization Address City/[facility]/[place] [address] ABO/Rh Typing (07/06/2017 12:00 [...] City/State/[place] [address] Prothrombin Time (07/06/2017 11:24 [...] Shahid MD HEMATOLOGY ORDERABLES Performing Organization Address City/[facility]/ZIP Code Phon e Number [address] (ABNORMAL) APTT (07/06/2017 11:24 AM EST) athologist Signature PTT 52 (H) 25 - 35 sec [facility] Comment: The recommended therapeutic range for fu ll dose, unfractionated heparin at [facility] is 80 ? 114 seconds. The use [...] Shahid MD HEMATOLOGY ORDERABLES Performing Organization Address City/[facility]/[place] [address] POCT Glucose (07/06/2017 11:02 AM EST) athologist Signature POC Glucose 187 65 - 199 [facility] mg/dL [facility] Comment: Supplemental ranges: <140 mg/dL before meals <180 mg/dL all other times of the day Specimen Anatomical Collection Method Collection Time Receive d Time (Source) Location / / Volume Laterality Blood specimen 07/06/2017 11:02 7 (specimen) AM EST 11:02 AM EST Daphne Shahid MD POINT OF CARE TEST ORDERABLE S Performing Organization Address City/State/[place] [address] POCT Glucose (07/06/2017 10:18 AM EST) athologist Signature POC Glucose 193 65 - 199 [place] mg/dL [facility] Comment: Supplemental ranges: <140 mg/dL before meals <180 mg/dL all other times of the day Specimen Anatomical Collection Method Collection Time Receive d Time (Source) Location / / Volume Laterality Blood specimen 07/06/2017 10:18 7 (specimen) AM EST 10:18 AM EST Daphne Shahid MD POINT OF CARE TEST ORDERABLE S Performing Organization Address City/State/[place] [address] POCT Glucose (07/06/2017 9:25 AM EST) athologist Signature POC Glucose 182 65 - 199 [place] mg/dL [facility] Comment: Supplemental ranges: <140 mg/dL before meals <180 mg/dL all other times of the day Specimen Anatomical Collection Method Collection Time Receive d Time (Source) Location / / Volume Laterality Blood specimen 07/06/2017 9:25 AM 017 9:25 (specimen) EST AM EST Daphne Shahid MD POINT OF CARE TEST ORDERABLE S Performing Organization Address City/State/[place] [address] (ABNORMAL) Cardiac Enzymes (LEB/CGP) (07/06/2017 8:10 AM EST) athologist Signature Troponin-T 2.26 (H) 0.00 - [place] 0.00 ng/mL [facility] Comment: The 99th percentile [...] additional sample may be indicated. Reference: Third Gerlach Definition of Myocardial Infarction. Journal of the [place] [employer]iology 2012;60:1581-98 CK, Total 124 0 - 200 unit/L [facility] Specimen Anatomical Collection Method Collection Time Receive d Time (Source) Location / / Volume Laterality Blood specimen 07/06/2017 8:10 AM 017 8:23 (specimen) EST AM EST Resulting Agency Comment Spec In Lab Daphne Shahid MD CHEMISTRY ORDERABLES Performing Organization Address City/[facility]/[place] [address] Magnesium (07/06/2017 8:10 AM EST) P athologist Signature Magnesium 0.84 0.69 - 1.07 [facility] mmol/L [facility] Specimen Anatomical Collection Method Collection Time Receive d Time (Source) Location / / Volume Laterality Blood specimen 07/06/2017 8:10 AM 017 8:21 (specimen) EST AM EST Resulting Agency Comment Spec In Lab Daphne Shahid MD CHEMISTRY ORDERABLES Performing Organization Address City/[facility]/ZIP [facility] [address] (ABNORMAL) Basic Metabolic Panel (non-fasting) (07/06/2017 8:10 AM EST) athologist Signature Glucose Lvl 199 65 - 199 [facility] mg/dL [facility] Comment: Diabetes: >=200 mg/dL plus symp toms BUN 16 10 - 20 mg/dL [facility] Creatinine 1.04 0.80 - 1.50 mg/dL [facility] Estimated GFR >60 >=60 [facility] Comment: The reported eGFR should be multiplied b y 1.2 for patients. The MDRD is not an appropriate measure o f renal function for patients with body mass extremes or in patients with acute kidney failure. http://[employer].TabSprint/DHnkdep http://Spoonfed/DHMCnkf Specimen Anatomical Collection Method Collection Time Receive d Time (Source) Location / / Volume Laterality Blood specimen 07/06/2017 8:10 AM 017 8:21 (specimen) EST AM EST Resulting Agency Comment Spec In Lab Daphne Shahid MD CHEMISTRY ORDERABLES Performing Organization Address City/State/[place] [address] POCT Glucose (07/06/2017 7:34 AM EST) athologist Signature POC Glucose 198 65 - 199 [facility] mg/dL [facility] Comment: Supplemental ranges: <140 mg/dL before meals <180 mg/dL all other times of the day Specimen Anatomical Collection Method Collection Time Receive d Time (Source) Location / / Volume Laterality Blood specimen 07/06/2017 7:34 AM 017 7:34 (specimen) EST AM EST Daphne Shahid MD POINT OF CARE TEST ORDERABLE S Performing Organization Address City/State/[place] [address] POCT Glucose (07/06/2017 7:03 AM EST) P athologist Signature POC Glucose 181 65 - 199 [facility] mg/dL [facility] Comment: Supplemental ranges: <140 mg/dL before meals <180 mg/dL all other times of the day Specimen Anatomical Collection Method Collection Time Receive d Time (Source) Location / / Volume Laterality Blood specimen 07/06/2017 7:03 AM 017 7:03 (specimen) EST AM EST Daphne Shahid MD POINT OF CARE TEST ORDERABLE S Performing Organization Address City/State/[place] [address] XR Chest PA or [...] Signature POC Glucose 172 65 - 199 [facility] mg/dL [facility] Comment: Supplemental ranges: <140 mg/dL before meals <180 mg/dL all other times of the day Specimen Anatomical Collection Method Collection Time Receive d Time (Source) Location / / Volume Laterality Blood specimen 07/06/2017 6:21 AM 017 6:21 (specimen) EST AM EST Daphne Shahid MD POINT OF CARE TEST ORDERABLE S Performing Organization Address City/State/[place] [address] POCT Glucose (07/06/2017 5:08 AM EST) athologist Signature POC Glucose 154 65 - 199 [facility] mg/dL [facility] Comment: Supplemental ranges: <140 mg/dL before meals <180 mg/dL all other times of the day Specimen Anatomical Collection Method Collection Time Receive d Time (Source) Location / / Volume Laterality Blood specimen 07/06/2017 5:08 AM 017 5:08 (specimen) EST AM EST Daphne Shahid MD POINT OF CARE TEST ORDERABLE S Performing Organization Address City/State/ZIP Code Phon e Number [address] POCT Glucose (07/06/2017 4:05 AM EST) athologist Signature POC Glucose 142 65 - [address] [facility] mg/dL [facility] Comment: Supplemental ranges: <140 mg/dL before meals <180 mg/dL all other times of the day Specimen Anatomical Collection Method Collection Time Receive d Time (Source) Location / / Volume Laterality Blood specimen 07/06/2017 4:05 AM 017 4:05 (specimen) EST AM EST Daphne Shahid MD POINT OF CARE TEST ORDERABLE S Performing Organization Address City/[facility]/[place] [address] POCT Glucose (07/06/2017 3:00 AM EST) athologist Signature POC Glucose 116 65 - 199 [facility] mg/dL [facility] Comment: Supplemental ranges: <140 mg/dL before meals <180 mg/dL all other times of the day Specimen Anatomical Collection Method Collection Time Receive d Time (Source) Location / / Volume Laterality Blood specimen 07/06/2017 3:00 AM 017 3:00 (specimen) EST AM EST Daphne Shahid MD POINT OF CARE TEST ORDERABLE S Performing Organization Address City/State/ZIP Code Phon e Number [address] Potassium (07/06/2017 2:20 AM EST) athologist Signature Potassium 3.9 3.5 - 5.0 [facility] mmol/L [facility] Comment: Please note: ??Patients [...] Organization Address City/State/ZIP Code Phon e Number [place] [phone] Differential, Automated (07/06/2017 2:20 AM EST) athologist Signature Neutrophils % 72.9 % [facility] Neutr Abs (ANC) 5.53 1.70 - [facility] 6.10 [facility] x10(3)/[facility] LABORATORY Lymphocytes % 16.4 % [facility] Lymphocytes Abs 1.2 0.9 - 3.2 [facility] x10(3)/[facility] LABORATORY Monocytes % 9.4 % [facility] Monocyte Abs 0.7 0.3 - 0.9 [facility] x10(3)/[facility] LABORATORY Eosinophils % 0.5 % [facility] Eosinophils Abs 0.0 0.0 - 0.4 [facility] x10(3)/[facility] LABORATORY Basophils % 0.4 % [facility] Basophils Abs 0.0 0.0 - 0.1 [facility] x10(3)/[facility] LABORATORY Immature Gran % 0.40 % [facility] [...] Melisa Gran Abs 0.03 0.00 - 0.04 x10(3)/[facility] LABORATORY Specimen Anatomical Collection Method Collection Time Receive d Time (Source) Location / / Volume Laterality Blood specimen 07/06/2017 2:20 AM 017 2:33 (specimen) EST AM EST Resulting Agency Comment Spec In Lab Daphne Shahid MD HEMATOLOGY ORDERABLES Performing Organization Address City/State/[place] [address] (ABNORMAL) Hemogram (07/06/2017 2:20 AM EST) Analysis Performed At Patho logist Time Signature WBC 7.6 4.0 - 9.5 [facility] x10(3)/[facility] LABORATORY RBC 4.52 (L) 4.58 - [facility] RYAN 5.54 [facility] x10(6)/[facility] LABORATORY Hemoglobin 13.4 (L) 13.7 - [facility] 16.5 gm/dL [facility] Hematocrit 39.7 (L) 40.5 - [facility] 48.5 % [facility] MCV 87.8 82.9 - [facility] 93.1 [facility] LABORATORY MCH 29.6 27.5 - [facility] 32.1 pg [facility] MCHC 33.8 32.0 - [facility] 35.7 gm/dL [facility] Platelets 189 145 - 357 [facility] x10(3)/[facility] LABORATORY RDWSD 45.6 (H) 36.0 - [facility] 45.0 [facility] LABORATORY RDWCV 14.3 (H) 11.4 - [facility] 13.8 % [facility] MPV 9.1 7.6 - 12.9 [facility] LABORATORY nRBC % Auto 0.0 % [facility] nRBC Abs Auto 0.000 0.000 - [facility] 0.000 [facility] x10(3)/[facility] LABORATORY Specimen Anatomical Collection Method Collection Time Receive d Time (Source) Location / / Volume Laterality Blood specimen 07/06/2017 2:20 AM 017 2:33 (specimen) EST AM EST Resulting Agency Comment Spec In Lab Daphne Shahid MD HEMATOLOGY ORDERABLES Performing Organization Address City/State/[place] [address] (ABNORMAL) APTT (07/06/2017 2:20 AM EST) P athologist Signature PTT 52 (H) 25 - 35 sec [facility] Comment: The recommended therapeutic range for fu ll dose, unfractionated heparin at [facility] is 80 ? 114 seconds. The use [...] Shahid MD HEMATOLOGY ORDERABLES Performing Organization Address City/[facility]/ZIP [facility] Phon e Number [address] POCT Glucose (07/06/2017 2:20 AM EST) athologist [employer] POC Glucose 115 65 - 199 [facility] mg/dL [facility] Comment: Supplemental ranges: <140 mg/dL before meals <180 mg/dL all other times of the day Specimen Anatomical Collection Method Collection Time Receive d Time (Source) Location / / Volume Laterality Blood specimen 07/06/2017 2:20 AM 017 2:20 (specimen) EST AM EST Daphne Shahid MD POINT OF CARE TEST ORDERABLE S Performing Organization Address City/[facility] [place] [address] (ABNORMAL) Cardiac Enzymes (LEB/CGP) (07/06/2017 2:20 AM EST) athologist Signature Troponin-T 2.13 (H) 0.00 - [facility] 0.00 ng/mL [facility] Comment: The 99th percentile [...] additional sample may be indicated. Reference: Third Gerlach Definition of Myocardial Infarction. Journal of the [place] [employer] 2012;60:1581-98 CK, Total 129 0 - 200 unit/L [facility] Specimen Anatomical Collection Method Collection Time Receive d Time (Source) Location / / Volume Laterality Blood specimen 07/06/2017 2:20 AM 017 2:33 (specimen) EST AM EST Resulting Agency Comment Spec In Lab Daphne Shahid MD CHEMISTRY ORDERABLES Performing Organization Address City/State/ZIP Code Phon e Number [place] [phone] Drive (ABNORMAL) Hemoglobin A1c (07/06/2017 [...] Mellitus, Diabetes Care 2013; 36: Suppl. 1, S67-46 Est Avg Gluc See note mg/dL [facility] Comment: Estimated Average Glucose not [...] with hemoglobinopathies. Additional resources are available on [facility] ADA website. Macario HAMMOND, Ruthann J, Deysi R, et al. ??Tr anslating the A1C assay into estimated average glucose values. ??Diabetes Care 2008:31(8):3880-8361. Specimen Anatomical Collection Method Collection Time Receive d Time (Source) Location / / Volume Laterality Blood specimen 07/06/2017 2:20 AM 017 2:34 (specimen) EST AM EST Resulting Agency Comment Spec In Lab Daphne Shahid MD CHEMISTRY ORDERABLES Performing Organization Address City/State/ZIP Code Phon e Number [place] [phone] (ABNORMAL) Lipid Panel (07/06/2017 2:20 AM EST) [facility] Method Time Signature Chol, Total 150 <=239 [place] mg/dL [facility]ORY Triglycerides 129 <=199 [place] mg/dL [facility] HDL 32 (L) >=40 [place] mg/dL [facility] LDL Cholesterol 92 <=190 [place] mg/dL [facility] Chol/HDL Ratio 4.7 ratio [facility] Lipid See Note [place] Interpretation [facility] Comment: Lipid management should be guided by a p atient? s ASCVD risk, goals and preferences. ACC/AHA Guidelines recommend high intens ity statin if clinical ASCVD or LDL greater than or equal to 190 mg/dL. http://[employer] Companyurl.com/AOO-VFN-Bpqnzoqjw Adults aged 40-75 with LDL 70-189 mg/dL should have their 10 year ASCVD risk estimated with the ACC/AHA ASCVD risk es timator http://tools.acc.org/XIVGS-Ckqh-Uupkwzjt r/ Statin should be discussed if risk [...] Shahid MD CHEMISTRY ORDERABLES Performing Organization Address City/[facility]/ZIP Code Phon e Number [address] POCT Glucose (07/06/2017 1:09 AM EST) athologist Signature POC Glucose 121 65 - 199 [facility] mg/dL [facility] Comment: Supplemental ranges: <140 mg/dL before meals <180 mg/dL all other times of the day Specimen Anatomical Collection Method Collection Time Receive d Time (Source) Location / / Volume Laterality Blood specimen 07/06/2017 1:09 AM 017 1:09 (specimen) EST AM EST Daphne Shahid MD POINT OF CARE TEST ORDERABLE S Performing Organization Address City/[facility]/ZIP Code Phon e Number [address] POCT Glucose (07/06/2017 12:06 AM EST) athologist Signature POC Glucose 147 65 - 199 [facility] mg/dL [facility] Comment: Supplemental ranges: <140 mg/dL before meals <180 mg/dL all other times of the day Specimen Anatomical Collection Method Collection Time Receive d Time (Source) Location / / Volume Laterality Blood specimen 07/06/2017 12:06 7 (specimen) AM EST 12:06 AM EST Daphne Shahid MD POINT OF CARE TEST ORDERABLE S Performing Organization Address City/State/[place] [address] (ABNORMAL) POCT Glucose (07/05/2017 10:56 PM EST) P athologist Signature POC Glucose 200 (H) 65 - 199 [place] mg/dL [facility] Comment: Supplemental ranges: <140 mg/dL before meals <180 mg/dL all other times of the day Specimen Anatomical Collection Method Collection Time Receive d Time (Source) Location / / Volume Laterality Blood specimen 07/05/2017 10:56 7 (specimen) PM EST 10:56 PM EST Daphne Shahid MD POINT OF CARE TEST ORDERABLE S Performing Organization Address City/State/[place] [address] (ABNORMAL) POCT Glucose (07/05/2017 10:05 PM EST) P athologist Signature POC Glucose 225 (H) 65 - 199 [place] mg/dL [facility] Comment: Supplemental ranges: <140 mg/dL before meals <180 mg/dL all other times of the day Specimen Anatomical Collection Method Collection Time Receive d Time (Source) Location / / Volume Laterality Blood specimen 07/05/2017 10:05 7 (specimen) PM EST 10:05 PM EST Daphne Shahid MD POINT OF CARE TEST ORDERABLE S Performing Organization Address City/State/[place] [address] (ABNORMAL) POCT Glucose (07/05/2017 9:02 PM EST) P athologist Signature POC Glucose 301 (H) 65 - 199 [place] mg/dL [facility] Comment: Supplemental ranges: <140 mg/dL before meals <180 mg/dL all other times of the day Specimen Anatomical Collection Method Collection Time Receive d Time (Source) Location / / Volume Laterality Blood specimen 07/05/2017 9:02 PM 017 9:02 (specimen) EST PM EST Daphne Shahid MD POINT OF CARE TEST ORDERABLE S Performing Organization Address City/State/ZIP Code Phon e Number [place] [phone]OS[address] LABORATORY Drive XR Chest PA or [...] 474 ms MUSE SYSTEM (Bezet) Calculated P [place] 50 degrees MUSE SYSTEM Calculated R [place] -28 degrees MUSE SYSTEM Calculated T [place] 90 degrees MUSE SYSTEM INTERPRETATION Sinus tachycardia [...] Neutr Abs (ANC) 9.08 (H) 1.70 - [facility] 6.10 [facility] x10(3)/[facility] L LABORATORY Lymphocytes % 7.0 % [facility] LABORATORY Lymphocytes Abs 0.7 (L) 0.9 - 3.2 [facility] x10(3)/[facility] LABORATORY Monocytes % 3.7 % [facility] LABORATORY Monocyte Abs 0.4 0.3 - 0.9 [facility] x10(3)/[facility] LABORATORY Eosinophils % 0.1 % [facility] LABORATORY Eosinophils Abs 0.0 0.0 - 0.4 [facility] x10(3)/[facility] LABORATORY Basophils % 0.2 % [facility] LABORATORY Basophils Abs 0.0 0.0 - 0.1 [facility] x10(3)/[facility] LABORATORY Immature Gran % 0.60 % [...] 0.06 (H) 0.00 - 0.04 x10(3)/[facility] LABORATORY Specimen Anatomical Collection Method Collection Time Receive d Time (Source) Location / / Volume Laterality Blood specimen 07/05/2017 8:20 PM 017 8:27 (specimen) EST PM EST Resulting Agency Comment Spec In Lab Daphne Shahid MD HEMATOLOGY ORDERABLES Performing Organization Address City/State/ZIP Code Phon e Number [place] [phone] [facility]OSPITAL LABORATORY Drive (ABNORMAL) Hemogram (07/05/2017 8:20 PM EST) Analysis Performed At Patho logist Time Signature WBC 10.3 (H) 4.0 - 9.5 [facility] x10(3)/[facility] LABORATORY RBC 4.64 4.58 - [facility] RYAN 5.54 [facility] x10(6)/[facility] LABORATORY Hemoglobin 14.1 13.7 - [facility] 16.[facility] gm/dL [facility] LABORATORY Hematocrit 40.8 40.5 - [facility] R[facility] 48.5 % [facility] LABORATORY MCV 87.9 82.9 [facility] 93.1 [facility] LABORATORY MCH 30.4 27.5 - [place] 32.1 pg [facility] LABORATORY MCHC 34.6 32.0 - [facility] 35.7 gm/dL [facility] LABORATORY Platelets 204 145 - 357 [facility] x10(3)/[facility] LABORATORY RDWSD 46.1 (H) 36.0 - [facility] 45.0 [facility] LABORATORY RDWCV 14.5 (H) 11.4 - [facility] R[facility] 13.8 % [facility] LABORATORY MPV 9.7 7.6 - 12.9 [facility] LABORATORY nRBC % Auto 0.0 % [facility] LABORATORY nRBC Abs Auto 0.000 0.000 - [facility] 0.000 [facility] x10(3)/[facility] LABORATORY Specimen Anatomical Collection Method Collection Time Receive d Time (Source) Location / / Volume Laterality Blood specimen 07/05/2017 8:20 PM 017 8:27 (specimen) EST PM EST Resulting Agency Comment Spec In Lab Daphne Shahid MD HEMATOLOGY ORDERABLES Performing Organization Address City/[facility]/ZIP [facility] Phon e Number [address] APTT (07/05/2017 8:20 PM EST) athologist Signature PTT 32 25 - 35 sec [facility] LABORATORY Comment: The recommended therapeutic range for fu ll dose, unfractionated heparin at [facility] is 80 ? 114 seconds. The use [...] Shahid MD HEMATOLOGY ORDERABLES Performing Organization Address City/[facility] Phon e Number [address] (ABNORMAL) Cardiac Enzymes (LEB/CGP) (07/05/2017 8:20 PM EST) athologist Signature Troponin-T 2.11 (H) 0.00 - [facility] 0.00 ng/mL [facility] LABORATORY Comment: The 99th percentile [...] additional sample may be indicated. Reference: Third Gerlach Definition of Myocardial Infarction. Journal of the [place] [employer] 2012;60:1581-98 CK, Total 149 0 - 200 unit/L [facility] LABORATORY Specimen Anatomical Collection Method Collection Time Receive d Time (Source) Location / / Volume Laterality Blood specimen 07/05/2017 8:20 PM 017 8:27 (specimen) EST PM EST Resulting Agency Comment Spec In Lab Daphne Shahid MD CHEMISTRY ORDERABLES Performing Organization Address City/[facility]/[place] [address] (ABNORMAL) Magnesium (07/05/2017 8:20 PM EST) P athologist Signature Magnesium 0.68 (L) 0.69 - 1.07 [facility] mmol/L [facility] LABORATORY Specimen Anatomical Collection Method Collection Time Receive d Time (Source) Location / / Volume Laterality Blood specimen 07/05/2017 8:20 PM 017 8:27 (specimen) EST PM EST Resulting Agency Comment Spec In Lab Daphne Shahid MD CHEMISTRY ORDERABLES Performing Organization Address City/State/[place] [address] (ABNORMAL) Basic Metabolic Panel (non-fasting) (07/05/2017 8:20 PM EST) P athologist Signature Glucose Lvl 321 (H) 65 - 199 [facility] mg/dL [facility] LABORATORY Comment: Diabetes: >=200 mg/dL plus symp toms BUN 20 10 - 20 mg/dL [facility] LABORATORY Creatinine 1.12 0.80 - 1.50 mg/dL [facility] LABORATORY Sodium 139 135 - 145 mmol/L [facility] LABORATORY Potassium 3.8 3.5 - 5.0 mmol/L [facility] LABORATORY [...] [facility] LABORATORY Estimated GFR >60 >=60 [facility] LABORATORY Comment: The reported eGFR should be multiplied b y 1.2 for patients. The MDRD is not an appropriate measure o f renal function for patients with body mass extremes or in patients with acute kidney failure. http://[employer]TabSprint/DHnkdep http://Spoonfed/DHnkf Specimen Anatomical Collection Method Collection Time Receive d Time (Source) Location / / Volume Laterality Blood specimen 07/05/2017 8:20 PM 017 8:27 (specimen) EST PM EST Resulting Agency Comment Spec In Lab Daphne Shahid MD CHEMISTRY ORDERABLES Performing Organization Address City/State/[place] [address] (ABNORMAL) POCT Glucose (07/05/2017 7:32 PM EST) P athologist Signature POC Glucose 296 (H) 65 - 199 [facility] mg/dL [facility] LABORATORY Comment: Supplemental ranges: <140 mg/dL before meals <180 mg/dL all other times of the day Specimen Anatomical Collection Method Collection Time Receive d Time (Source) Location / / Volume Laterality Blood specimen 07/05/2017 7:32 PM 017 7:32 (specimen) EST PM EST Daphne Shahid MD POINT OF CARE TEST ORDERABLE S Performing Organization Address City/State/ZIP Code [place] [address] CARDIAC CATHETERIZATION (07/05/2017 6:47 PM EST) Specimen (Source) Anatomical Location Collection Method / Collectio n Time Received Time / Laterality Volume Narrative CARDIOMAC SYSTEM - 07/05/2017 7:27 PM ES T ?[facility] ? Cardiac Cathete rization/Intervention Report ? Patient Name: Natalya, Gregory ? Procedure Date: 07/05/2017 ? A #: [id number] ? Primary Physician: Jet Mckenna ? Case #: [id number] ? File Name: [id number] ? Catheterization Order Number: [id number] ? [facility] ? Final Report [place], [place] ? Patient Name: ? Gregory Natalya ?ID#: ?[id number] ? : ?1945 ? Procedure Date: ? [...] presented with: non -STEMI (w/i 7 days). [place] ?[employer]iovascular Society angina c lass was IV. [...] site angio graphy and IABP insertion in rn cardiac cath. ? Jet Mckenna M.D. ? Electronically Signed by: Jet bunch MKd. ? Report Finalized: 07/05/2017 ??19:23 ? Report Last Ammended: 10/26/2017 ??10:29 ? Procedure Note Clarisa, Jet T, MD - 10/26/2017Formatt ing of this note might be different from the original. [facility] Cardiac Catheterization/Intervention Re port Patient Name: Gregory Hoang Procedure Date: 07/05/2017 A #: [id number] Primary Physician: Jet Mckenna Case #: [id number] File Name: [id number] Catheterization Order Number: [id number] [facility] Committee Member [facility] Final Report [place], [place] Patient Name: Gregory Hoang ID#: [id number] : 1945 Procedure Date: July 05, [...] presented with: non-STEMI ( w/i 7 days). [place] [employer] angina class was IV. No [...] site angiograph y and IABP insertion in rn cardiac cath. Jet Mckenna M.D. Electronically Signed by: Jet [...] Echocardiogram Patient: ?NATALYA GORMANRY Veda ? (Age): 1945(72y) Med Rec#: ? [id number] ?Sex: ?M ? Site Loc: ? [facility] ?Ht / Wt: ??173(cm)/86(kg) Pt. Loc: ?[facility] ? BSA: ?2 Study Date: ?? 07/05/2017 ?Pt. Type: Inpatient Tape: ? Referring: Daphne Shahid ([id number]) Referring: MANDA ALCANTAR Reading: Blade Preston ([id number]) Training Personnel Supervisor: Dayami Paula BA, [facility] [...] E-wave Vmax ?0.8 ?m/sec ? MV deceleration [id number] ?msec ? MV A-wave Vmax ?0.8 ?m/sec [...] ? Mid-Inferior ?Akinetic ? Mid-Inferoseptal ?Hypokinetic ? [place]-Septal ? Akinetic ? [place]-Anterior ? Hypokinetic ? [place]-Lateral ?Hypokinetic ? [place]-Inferior ? Akinetic ? [place]-Tip ?Akinetic ? This report has been electronically sign ed by: _ Blade Preston MD ? 07/06/2017 08 :53:15 Images reviewed and interpretation verif ied [facility] Cardiac Ultrasound Laboratory Procedure Note Blade Preston MD - 07/06/2017Formatt ing of this note might be different from the original. Procedure: Transthoracic Echocardiogram Patient: NATALYA MCBRIDE(Age): [birth year]72y) Med Rec#: [id number] Sex: M Site Loc: [facility] Ht / Wt: 173(cm)/86(kg) Pt. Loc: U BSA: 2 Study Date: 07/05/2017 Pt. Type: Inpatie nt Tape: Referring: Daphne Shahid ([id number]) Referring: MANDA ALCANTAR Reading: Blade Preston ([id number]) Training Personnel Supervisor: Dayami Paula BA, [facility] [...] MV E-wave Vmax 0.8 m/sec MV deceleration [id number] msec MV A-wave Vmax 0.8 m/sec MV [...] Hypokinetic Mid-Posterolateral Hypokinetic Mid-Inferior Akinetic Mid-Inferoseptal Hypokinetic [place]-Septal Akinetic [place]-Anterior Hypokinetic [place]-Lateral Hypokinetic [place]-Inferior Akinetic [place]-Tip Akinetic This report has been electronically sign ed by: _ Blade Preston MD 07/06/2017 08:53:15 Images reviewed and interpretation verif ied [facility] Cardiac Ultrasound Laboratory Daphne Shahid MD ECHO ORDERABLES Performing Organization Address City/State/ZIP Code Phon e Number [facility] Differential, Automated (07/05/2017 4:55 PM EST) athologist Signature Neutrophils % 77.0 % [facility] LABORATORY Neutr Abs (ANC) 5.26 1.70 - [facility] 6.10 [facility] x10(3)/[facility] LABORATORY Lymphocytes % 13.3 % [facility] LABORATORY Lymphocytes Abs 0.9 0.9 - 3.2 [facility] x10(3)/[facility] LABORATORY Monocytes % 8.2 % [facility] LABORATORY Monocyte Abs 0.6 0.3 - 0.9 [facility] x10(3)/[facility] LABORATORY Eosinophils % 0.7 % [facility] LABORATORY Eosinophils Abs 0.0 0.0 - 0.4 [facility] x10(3)/[facility] LABORATORY Basophils % 0.4 % [facility] LABORATORY Basophils Abs 0.0 0.0 - 0.1 [facility] x10(3)/[facility] LABORATORY Immature Gran % 0.40 % [facility] [...] - 0.04 x10(3)/[facility] LABORATORY Specimen Anatomical Collection Method Collection Time Receive d Time (Source) Location / / Volume Laterality Blood specimen 07/05/2017 4:55 PM 017 5:24 (specimen) EST PM EST Resulting Agency Comment Spec In Lab Daphne Shahid MD HEMATOLOGY ORDERABLES Performing Organization Address City/State/[place] [address] (ABNORMAL) Hemogram (07/05/2017 4:55 PM EST) Analysis Performed At Patho logist Time Signature WBC 6.8 4.0 - 9.5 [facility] x10(3)/[facility] LABORATORY RBC 4.67 4.58 - [place] 5.54 [facility] x10(6)/[facility] LABORATORY Hemoglobin 14.0 13.7 [facility] 16.5 gm/dL [facility] LABORATORY Hematocrit 41.0 40.5 - [facility] 48.5 % [facility] LABORATORY MCV 87.8 82.9 - [facility] 93.1 [facility] LABORATORY MCH 30.0 27.5 - [place] 32.1 pg [facility] LABORATORY MCHC 34.1 32.0 - [facility] R[facility] 35.7 gm/dL [facility] LABORATORY Platelets 197 145 - 357 [facility] x10(3)/[facility] LABORATORY RDWSD 46.4 (H) 36.0 - [place] 45.0 [facility] LABORATORY RDWCV 14.5 (H) 11.4 - [facility] RYAN 13.8 % [facility] LABORATORY MPV 9.7 7.6 - 12.9 [facility] nRBC % Auto 0.0 % [facility] LABORATORY nRBC Abs Auto 0.000 0.000 - [facility] RYAN 0.000 [facility] x10(3)/[facility] LABORATORY Specimen Anatomical Collection Method Collection Time Receive d Time (Source) Location / / Volume Laterality Blood specimen 07/05/2017 4:55 PM 017 5:24 (specimen) EST PM EST Resulting Agency Comment Spec In Lab Daphne Shahid MD HEMATOLOGY ORDERABLES Performing Organization Address City/State/[place] [address] (ABNORMAL) Cardiac Enzymes (LEB/CGP) (07/05/2017 4:55 PM EST) athologist Signature Troponin-T 1.69 (H) 0.00 - [place] 0.00 ng/mL [facility] LABORATORY Comment: The 99th percentile [...] additional sample may be indicated. Reference: Third Gerlach Definition of Myocardial Infarction. Journal of the [place] [employer] 2012;60:1581-98 CK, Total 191 0 - 200 unit/L [facility] LABORATORY Specimen Anatomical Collection Method Collection Time Receive d Time (Source) Location / / Volume Laterality Blood specimen 07/05/2017 4:55 PM 017 5:56 (specimen) EST PM EST Resulting Agency Comment Spec In Lab Daphne Shahid MD CHEMISTRY ORDERABLES Performing Organization Address City/State/[place] [address] (ABNORMAL) pro-Brain Natriuretic Peptide (07/05/2017 4:55 PM EST) P athologist Signature ProBNP 1,598 (H) <=125 [facility] pg/mL [facility] LABORATORY Specimen Anatomical Collection Method Collection Time Receive d Time (Source) Location / / Volume Laterality Blood specimen 07/05/2017 4:55 PM 017 5:24 (specimen) EST PM EST Resulting Agency Comment Spec In Lab Daphne Shahid MD CHEMISTRY ORDERABLES Performing Organization Address City/State/ZIP Code Phon e Number [address] Magnesium (07/05/2017 4:55 PM EST) athologist Signature Magnesium 0.78 0.69 - 1.07 [facility] mmol/L [facility] LABORATORY Specimen Anatomical Collection Method Collection Time Receive d Time (Source) Location / / Volume Laterality Blood specimen 07/05/2017 4:55 PM 017 5:24 (specimen) EST PM EST Resulting Agency Comment Spec In Lab Daphne Shahid MD CHEMISTRY ORDERABLES Performing Organization Address City/[facility] Code Phon e Number [address] (ABNORMAL) Basic Metabolic Panel (non-fasting) (07/05/2017 4:55 PM EST) athologist Signature Glucose Lvl 230 (H) 65 - 199 [facility] mg/dL [facility] LABORATORY Comment: Diabetes: >=200 mg/dL plus symp toms BUN 19 10 - 20 mg/dL [facility] LABORATORY Creatinine 1.04 0.80 - 1.50 mg/dL [facility] LABORATORY Sodium 142 135 [...] LABORATORY Calcium 8.5 8.5 - 10.5 mg/dL [facility] LABORATORY Estimated GFR >60 >=60 [facility] LABORATORY Comment: The reported eGFR should be multiplied b y 1.2 for patients. The MDRD is not an appropriate measure o f renal function for patients with body mass extremes or in patients with acute kidney failure. http://[employer]/DHnkdep http://[employer]/DHMCnkf Specimen Anatomical Collection Method Collection Time Receive d Time (Source) Location / / Volume Laterality Blood specimen 07/05/2017 4:55 PM 017 5:24 (specimen) EST PM EST Resulting Agency Comment Spec In Lab Daphne Shahid MD CHEMISTRY ORDERABLES Performing Organization Address [facility] Phon e Number [address] (ABNORMAL) APTT (07/05/2017 4:55 PM EST) P athologist Signature PTT 41 (H) 25 - 35 sec [facility] LABORATORY Comment: The recommended therapeutic range for fu ll dose, unfractionated heparin at [facility] is 80 ? 114 seconds. The use [...] Shahid MD HEMATOLOGY ORDERABLES Performing Organization Address City/[facility]/ZIP [facility] [place] [address] (ABNORMAL) POCT Glucose (07/05/2017 4:53 PM EST) P athologist Signature POC Glucose 208 (H) 65 - 199 [facility] mg/dL [facility] LABORATORY Comment: Supplemental ranges: <140 mg/dL before meals <180 mg/dL all other times of the day Specimen Anatomical Collection Method Collection Time Receive d Time (Source) Location / / Volume Laterality Blood specimen 07/05/2017 4:53 PM 017 4:53 (specimen) EST PM EST Daphne Shahid MD POINT OF CARE TEST ORDERABLE S Performing Organization Address City/State/[place] [address] EKG 12 Lead (07/05/2017 4:32 PM EST) Component Value Ref Range Test Analysis Performed Pathologis t Method Time At Signature Ventricular rate 97 BPM MUSE SYSTEM Atrial Rate 97 BPM MUSE SYSTEM P-R Interval 148 ms MUSE SYSTEM QRS Duration 96 ms MUSE SYSTEM Q-T Interval 364 ms MUSE SYSTEM QTC Calculated 462 ms MUSE SYSTEM (Bezet) Calculated P [place] 48 degrees MUSE SYSTEM Calculated R [place] -33 degrees MUSE SYSTEM Calculated T [place] 98 degrees MUSE SYSTEM INTERPRETATION Normal sinus [...] post-op day 1 in the AM Give [place] if unable to take PO, Routine Given [...] (Intra-Procedure), Routine electrolyte (pH 7.4) (NORMOSOL-R; New Bag 07/07/2017 1:50 PM EST 1 ,320 mLs [...] Jones RN)0900 (See Alternative - Provider: Em Jones, VAMSI) 0922 (Given - Provider: Myrna triplett, VAMSI) [...] post-op day 1 in the AM Give [place] if unable to take PO, Routine atorvastatin [...] 50 Units 0929 (Given - Provider: Myrna Young, VAMSI) 50 Units, Subcutaneous, EVERY 24 HOURS, First [...] Valdovinos RN) 0842 (Given - Provider: Em Jones, VAMSI)1307 [...] VAMSI) 10 mg, Oral, DAILY, First dose (after [...] Rangel , RN)1311 (Given - Provider: Em Jones, VAMSI) 12.5 mg, Oral, EVERY 8 HOURS SCHEDULED, First dose (after last modification) on Wed07/11/17 at 1400, Until Discontinued, Routine meTOPROLOL tartrate (LOPRESSOR) tablet 25 mg 2000 (Given - Provider: Denice Jacobson RN) 09 (Given - Provider: Myrna triplett RN) 25 [...] 08 (Given - Provider: More Luther RN) 0900 [...] Jacobson, VAMSI)1330 (Not Given - Provider: Myrna Young, VAMSI - Reason: Patient/family refused) 5 mL, Intravenous, EVERY 8 HOURS, First dose on Wed07/11/17 at 1330, Until Discontinued, Routine 2200 (Given - Provider: Ale Rangel, VAMSI) 2130 (No t Given - Provider: Denice [...] post-op day 1 in the AM Give [place] if unable to take PO
Routine Group [...]
Routine documented in this encounter Care Teams Aerial Planting And Cultivation Manager Relationship Specialty Start Date End Date Lovely Vicente MD PCP - General 04/16/[address] [place] [address] documented as of this encounter
--- OUTSIDE RECORDS SUMMARY | 2022-02-20 01:49 | XMS_ITS | Encounter Summary ---
:1945 Author Organization [facility] [place] [address] Care Team Providers Name Role Phone Lovely Vicente MD Primary Care Provider Encounter Details Date Type Department Care Team Description 07/05/2017 Telephone Cardiology Kim Galindo MD [facility] [place] [address] CARDIOLOGY DEPT [phone] [place], [place] [address] (Wo rk) Social History Tobacco [...] 1:54pm Referring Provider: Ivania CROWELL) Patient Location: [facility] Presenting Symptoms per OSH: 72 year [...] infarct and elevated troponin, [place] [facility] [place] and arrhythmia monitoring. Kim Galindo MD Booth Supervisor documented in this encounter Plan of Treatment Upcoming Encounters Date Type Specialty Care Team Description 03/26/2022 Office Visit Cardiology Vitaliy Nobles MD [facility] CARDIOLOGY [place], [place] [address] (Wo rk) documented as of this encounter Visit Diagnoses Not on filedocumented in this encounter Care Teams Crayon Sawyer Relationship Specialty Start Date End Date Lovely Vicente MD PCP - General 04/16/[address] [place] [address] documented as of this encounter
--- OUTSIDE RECORDS SUMMARY | 2022-02-20 01:49 | XMS_ITS | Encounter Summary ---
:1945 [place] [address] Care Team Providers Name Role Phone Lovely Vicente MD Primary Care Provider Reason for Visit Auth/Cert Specialty Diagnoses / Procedures Referred By Contact Refer red To Contact Diagnoses STEMI (ST elevation myocardial infarction) NSTEMI STEMI Procedures CARDIAC CATHETERIZATION NAYE IPI Referral ID Status Reason Start Date Expiration Date Visits Requ ested Visits Authorized [id number] 1 1 Encounter Details Date Type Department Care Team Description 07/05/2017 Surgery Bottom Buffer Jet Guan, CARDIAC CATHETERIZATION [facility] [place] [address] CARDIOLOGY DEPT. [phone] [place], [place] [address] (Wo rk) Social History [...] this encounter Discharge Summaries Martha Teague S, CATERING ADMINISTRATIVE ASSISTANT - 07/14/2017 9:38 AM EST Inpatient - Discharge Summary Patient Name: Gregory Hoang Patient Age: 72 y.o. Birthdate: 1945 Language: Barbadian Race: White Ethnicity: Not nor Admit Date: [...] , @ 1:20p Patient to follow-up with Cyber Defense Analyst/heart failure team in one week. An appointment will be made for you. You may call [phone] Patient to follow-up with Cardiac Surgery, Dr. Yuan Webber, in ~ 4 weeks with CXR, EKG. Inpatient Provider Contact Information: [facility] Section of Cardiac Surgery [facility] [place] [address] FAX [phone] Discharge Diagnoses (Hospital Problems) Primary Diagnoses: CAD [...] 33.75) performed by Yuan Webber MD at [facility] OR ??? PRO CABG, ARTERY-VEIN, TWO N/A 07/07/2017 @CABG, TWO VENOUS GRAFTS & ARTERIAL GRAFT (WRVU 7.93) performed by Yuan Webber MD at [facility] OR ??? PRO COLONOSCOPY, REMV LESN, SNARE 01/16/2014 COLONOSCOPY, POLYPECTOMY, REMOVAL LESION BY SNARE performed by Nohemi Jaimes MD at [facility] ENDOSCOPY ??? PRO ENDOSCOPY W/VIDEO-ASST VEIN HARVEST, CABG Right 07/07/2017 ENDOSCOPIC HARVEST VEIN(S) FOR CABG (WRVU 0.31) performed by Yuan Webber MD at [facility] OR ??? PRO THYROIDECTOMY 03/28/2013 THYROIDECTOMY, TOTAL OR COMPLETE performed by Manny Mcknight MD at [facility] Prior To Admission Medications Prescriptions Prior to Admission Medication Sig Dispense Refill Last Dose ??? levothyroxine (SYNTHROID) 175 mcg Tablet Take 1 tablet by mouth daily. 90 tablet 3 07/05/2017 [id number] ??? ascorbic acid, vitamin C, (VITAMIN C) [...] hospital and ruled infor non-ST segment elevation ME. This almost certainly represents the residual of [...] Gregory Hoang was admitted to [facility] on 07/05/2017 via the Cardiology Service. During his hospital course, he was taken emergently to the labor relations analyst for an ongoing STEMI. An IABP was [...] not take or discontinue any prescription or kzcu-oss-cdcgpea medications without asking your doctor or pharmacist [...] day to have your insulin doses adjusted. [facility] Endocrine clinic office Discharge Instructions: Call your doctor if: You have a fever of greater than 101 degrees, shaking chills, if you develop redness or drainage from your incision sites, or if you have questions. Please call your surgeon's office if you have any discharge or drainage from your chest incision. Your surgeon, Dr. Yuan Webber and/or the Cardiac Surgery Physician Research Chef Team may be reached at . Weight: [...] Dr. Yuan Webber. You may use a [place] Track or treadmill but avoid any pulling [...] friends, go to a movie, go to buddhism, etc. Heavy activities: No hunting, skiing, jogging, snow shoveling, snowmobiling, lawn mowing, swimming, golf or tennis until after your return appointment with the surgeon. Do not ride motorcycles, [employer] tractors or horses. Avoid the use of [...] should resume a low fat, low cholesterol, [place] Heart Association Diet/Diabetic diet. Driving: No driving [...] , @ 1:20p Patient to follow-up with Cyber Defense Analyst/heart failure team in one week. Appointment will be made for you. You may call [phone] Patient to follow-up with Cardiac Surgery, Dr. Yuan Webber, in ~ 4 weeks with CXR, EKG. Cardiac Rehabilitation: Gregory Hoang was seen today regarding participation in the outpatient Phase 2 Cardiac Rehabilitation at [facility]. The patient agrees to a referral to this program. The referral will be sent at discharge and the patient should be contacted by the Program within 1- 2 weeks from discharge. ?? Future Appointments and Orders Future Appointments Provider Department Dept Phone 09/07/2017 3:00 PM LAB, THREE L Lab 3L [facility] [phone] 09/07/2017 4:00 PM Luz Prescott MD Endocrinology at [place] [phone] Future Orders Complete By Expires EKG 12 Lead [EKG1 Custom] 08/14/2017 02/13/2018 Process Instructions: Scheduling Instructions: Questions: Which DH location will this be performed?: [place] Is a rhythm strip needed?: No If EKG Reason is Pre-op Evaluation, indicate diagnosis for surgery.: XR Chest PA & Lateral (Generic) [[id number] Custom] 08/14/2017 02/13/2018 Process Instructions: Scheduling Instructions: Questions: Where will study be performed?: [place] [facility] Portable exam?: Reason for exam and clinical history: CABG x 3 Other pertinent information: Stat read required?: Date of injury if applicable: Requested Time: Referral to Cardiac Rehab [[id number] Custom] As directed Process Instructions: If no progress note charted, please enter Clinical details in comments. Scheduling Instructions: Questions: My question or request is: s/p CABG. Cardiac rehab at [facility] Referral to Home Health - at DISCHARGE [[id number] CPT(R)] As directed Process Instructions: Scheduling Instructions: Comments: DOCUMENTATION FOR VNA SERVICES (INCLUDING THOSE PATIENTS WITH MEDICARE COVERAGE REQUIRING HOME VNA SERVICES AND/OR HOSPICE SERVICES) PATIENT'S LOCATION: Gregory Hoang [address] [place] [address] [place] [address] (home) Telephone Information: Catalyst Operator Gasoline's Name: self In discussion with the attending physician, it is certified that this patient is under their care and that they, or a Nurse Practitioner, or Physician Research Chef who is working directly with them, had [...] HEALTH AGENCY: [facility] ([facility] [place] [facility] in [place] PHONE: [phone] FAX: [phone] RN orders: Cardiopulmonary assessment, incisional assessment, assess vital signs, assessment of rehab progress, medication management and effectiveness, home safety evaluation. Please draw INR if indicated and send result to:Dr Vicente [phone] PT ORDERS: Continue rehab for endurance, gait stability and strength with mobility and transfers. Home safety evaluation. Home exercise program if appropriate. Start of Care Date:24-48 hours after discharge SPECIAL INSTRUCTIONS: For any follow up questions, needs, or issues please call the Cardiac Surgery Office at [phone] FOR MEDICARE ONLY: (please delete this section [...] OR AFTER 07/17/2017 Signed: Martha Teague APRN [facility] Section of Cardiac Surgery [facility] [address] FAX [phone] Date: 07/14/2017 CC: MD Ivania Cr Betsy, PA [address] [place] [phone] documented in this encounter Discharge Instructions Discharge [...] day to have your insulin doses adjusted. [facility] Endocrine clinic office Patient InstructionsStMartha mcdonald APRN [...] not take or discontinue any prescription or skpu-aon-hsqfcsd medications without asking your doctor or pharmacist [...] day to have your insulin doses adjusted. [facility] Endocrine clinic office ? Discharge Instructions: ?? Call your doctor if: You have a fever of greater than 101 degrees, shaking chills, if you develop redness or drainage from your incision sites, or if you have questions. Please call your surgeon's office if you have any discharge or drainage from your chest incision. Your surgeon, Dr. Yuan Webber and/or the Cardiac Surgery Physician Research Chef Team may be reached at . ?? [...] Dr. Yuan Webber. You may use a [place] Track or treadmill but avoid any pulling [...] friends, go to a movie, go to buddhism, etc. ?? Heavy activities: No hunting, skiing, jogging, snow shoveling, snowmobiling, lawn mowing, swimming, golf or tennis until after your return appointment with the surgeon. Do not ride motorcycles, [employer]'s tractors or horses. Avoid the use of [...] should resume a low fat, low cholesterol, [place] Heart Association Diet/Diabetic diet. ?? Driving: No [...] @ 1:20p ?? Patient to follow-up with Cyber Defense Analyst/heart failure team in one week. An appointment has been made for you, you can call [phone] ?? Patient to follow-up with Cardiac Surgery, Dr. Yuan Webber, in ~ 4 weeks with CXR, EKG. ? Cardiac Rehabilitation: Gregory Hoang??was seen today regarding participation in the outpatient Phase 2 Cardiac Rehabilitation at [facility]. ?? The patient agrees to a referral to this program.? The referral will be sent at discharge and the patient should be contacted by the Program within 1- 2 weeks from discharge. ? Future Appointments and Orders Future Appointments Provider Department Dept Phone ?? 09/07/2017 3:00 PM LAB, THREE L Lab 3L [facility] [phone] ?? 09/07/2017 4:00 PM Luz Prescott MD Endocrinology at [place] [phone] Future Orders Complete By Expires ?? EKG 12 Lead [EKG1 Custom] 08/14/2017 02/13/2018 ?? Process Instructions: ? Scheduling Instructions: ? Questions: ? Which location will this be performed?: [place] ?? Is a rhythm strip needed?: No ?? If EKG Reason is Pre-op Evaluation, indicate diagnosis for surgery.: ?? XR Chest PA & Lateral (Generic) [[id number] Custom] 08/14/2017 02/13/2018 ?? Process Instructions: ? Scheduling Instructions: ? Questions: ? Where will study be performed?: [place] [facility] ?? Portable exam?: ?? Reason for exam and clinical history: CABG x 3 ?? Other pertinent information: ?? Stat read required?: ?? Date of injury if applicable: ?? Requested Time: ?? Referral to Cardiac Rehab [[id number] Custom] As directed ? Process Instructions: ?? If no progress note charted, please enter Clinical details in comments. ?? Scheduling Instructions: ? Questions: ? My question or request is: s/p CABG. Cardiac rehab at [facility] ? Arrangements for VNA/home care: As [...] RN - 07/14/2017 2:34 PM EST The patient/group sales representative has been provided a list of Home Health Agencies/DME vendors which serve their preferred geographic area. A letter describing our affiliations was reviewed with them and theywere educated about their right to choose where referrals are placed. Patient requests referral to [facility] [email or web address]. PHONE: [phone] FAX: [phone] Expected date of discharge: 07/14 Referral routed to the Speech Language Pathology Assistant for matching with agency/vendor and to provide [...] day to have your insulin doses adjusted. [facility] Endocrine clinic office Kathie Carrera APRN [facility] Endocrinology Diabetes Management Pager [phone] minutes of this 35 minute visit was spent with the patient in counseling on diabetes and treatment plan, reviewing all glucose and insulin data as well as relevant laboratory results with the patient, and coordination of care on the inpatient unit including nursing and primary team. Zulma Andres RN - 07/14/2017 10:30 AM EST The patient/group sales representative has been provided a list of Home Health Agencies/DME vendors which serve their preferred geographic area. A letter describing our affiliations was reviewed with them and theywere educated about their right to choose where referrals are placed. Patient requests referral to : [facility] ([facility] [place] [facility]-is in [place] PHONE: [phone] FAX: [phone]. Expected date of discharge: 07/14/17 Referral routed to the Speech Language Pathology Assistant for matching with agency/vendor and to provide [...] #6 s/p CABG X3. FSBG 80 at [place], reports no symptoms but did drink some [...] Will continue to follow Katerin Azul APRN [facility] Endocrinology Diabetes Management Pager [phone] minutes of this 25 minute visit [...] of infiltration/extravasation Discussed plan of care with FISH CONSERVATIONIST and RN. Elevate exrtemity and apply intermittent Warm compresses. Name of MD contacted Dr. Shaw Brown 07/13/2017 @ 0655 Name of RN contacted Ale Rangel RN Name of Pharmacist if consulted NA Name of Plastics MD ( if consulted) NA (Mandatory photo for infiltrations/ extravasations scoring a stage 2 or greater, but recommended forstage 1)( include measuring tape and identifier in the photo) TRACER POWDER BLENDER CARING FOR THIS PATIENT WILL CONTINUE TO [...] measuring tape and identifier in the photo) TRACER POWDER BLENDER CARING FOR THIS PATIENT WILL CONTINUE TO [...] regard to both infiltrates addressed by this senior grant writer.All of Mr. Hoang's responses were entirely appropriate. Images of infiltrates attached here. Martha Sharp APRN - 07/13/2017 8:01 AM EST Cardiac Surgery Progress Note: ID: [id number] 72 year old male POD#6 s/p CABGx3 [...] discharge. ?? I have met with the patient/group sales representative to discuss discharge planning needs. I have provided the [facility], Office of Care Management letter from the Development Technologist pertaining to rehab referrals. I have also provided a letter describing our affiliations within the [facility] and educated them about their right to choose where referrals are placed. ?? I reviewed the different levels of rehab including SNF, swing, acute and LTAC with the patient/group sales representative. ?? The patient/group sales representative has been provided a list of facilities within their preferred geographic area. ?? I have requested that the patient/group sales representative provide at least three choices for referral. ?? The patient/group sales representative have requested referrals to: ?? 1. . ?? 2. [facility] ?? 3. More to be entered ?? Expected date of discharge: 07/14 Note routed to Speech Language Pathology Assistant who will communicate referrals to facilities and [...] hours. If BG remains greater than 240, [id number] units (no more than three times) & [...] CAD, HTN, CHF NYHA Class III-IV, MARIA VITCORIA on CPAP, BPH, thyroid carcinoma s/p thyroidectomy [...] hours. If BG remains greater than 240, [id number] units (no more than three times) & call for new basal insulin orders. ??If less than 240 after two hours, give no insulin and resume prior schedule. Will continue to follow Katerin Azul APRN [facility] Endocrinology Diabetes Management Pager [phone] 20 minutes of this 35 minute visit was spent with the patient in counseling on diabetes and treatment plan, reviewing all glucose and insulin data as well as relevant laboratory results with the patient, and coordination of care on the inpatient unit including nursing and primary team. Makayla Stevenson APRN - 07/12/2017 9:52 AM EST Cardiac Surgery Progress Note: ID: [id number] 72 year old male POD#5 s/p CABGx3 [...] 07/11/2017 7:18 PM EST Patient arrived from [facility]. VSS. MSI dressing pulled off [...] AM EST Cardiac Surgery Progress Note: ID: [id number] 72 year old male POD#4 s/p CABGx3 [...] AM EST Cardiac Surgery Progress Note: ID: [id number] 72 year old male POD#3 s/p CABGx3 [...] Gas) No results found for: PHART, PO2ART, BAL5QNT Assessment/Plan: 72 year old male POD#3 s/p [...] Mami Thao - 07/09/2017 6:29 PM EST Principal Automation Engineer Encounter Note Patient Name: Gregory Hoang : [id number] MR#: [id number] Admit Date: 07/05/2017 4:20 PM Hospital Day 4 days Narrative: Patient was sitting in chair, hugging heart pillow, opened his eyes, nodding to come into room Assessment: Patient was sleepy. Intervention and Outcome: Introduced buildings and grounds director services and patient reached his hand out in appreciation. Follow-up: Principal Automation Engineer remains available for support. Time in [...] 07/09/2017 10:45 AM EST Report given to staffing rn to cover care Maddison Cee PA - 07/09/2017 9:00 AM EST Cardiac Surgery Progress Note: ID: [id number] 72 year old male POD#2 s/p CABGx3 [...] on rounds. Signed: STEPHANIE Iqbal [facility] Section of Cardiac Surgery Date: [...] when IABP d/c'ed. Gretchen Carolina, PT Pager [phone] Maddison Cee PA - 07/08/2017 11:27 AM EST Cardiac Surgery Progress Note: ID: [id number] 72 year old male POD#1 s/p CABGx3 [...] on rounds. Signed: STEPHANIE Iqbal [facility] Section of Cardiac Surgery Date: [...] in place in R femoral. No hematoma. PLANNING FEEDER- Intact Psych- Anxious Skin- Dry, no peripheral [...] intact. IABP in place in R femoral. PLANNING FEEDER- Intact Psych- Anxious Skin- Dry, no peripheral [...] note for details. DAPHNE SHAHID MD Pager [phone] Jet Mckenna MD - 07/05/2017 6:48 PM EST Preliminary Cardiac Catheterization Procedure Note: Procedure(s) performed: Left heart cath, IABP insertion Access: Right GAMES DEALER-->8fr IABP A time-out was conducted prior to [...] effect. Heparin gtt maintained. Pt transferred to labor relations analyst. documented in this encounter H&P Notes Daphne Shahid MD - 07/05/2017 6:08 PM EST CARDIOLOGY HISTORY & PHYSICAL EXAM Date of Admission: 07/05/2017 ( Hospital Day 0 days ) Responsible Attending: Daphne Shahid MD PCP: Lovely Vicente MD PCP#: [phone] Patient Active Problem List Diagnosis Code ??? [...] load with heparin drip and transferred to [facility]. While there, continued sob, question of chest pain. Stat TTE showing WMA diffusely and EF around 20%. No significant valvular disease. Taken to the labor relations analyst urgently for ongoing STEMI. [facility] Labs: INR 1.0 WBC 5.88 Hgb [...] monitor I/O - s/p lasix in the labor relations analyst, redose to aim net neg 1L by [...] Medicine, PGY-2 Cardiology S1, Team Pager # [phone] CARDIOLOGY ATTENDING NOTE Patient: Gregory Hoang Date [...] amenable for PCI. DAPHNE SHAHID MD Pager [phone] documented in this encounter Miscellaneous Notes Consult Note - Daphen Shahid MD - 07/14/2017 11:46 AM EST Heart Failure Service Inpatient Consult Note Gregory Hoang Date of : 1945 Age: 72 y.o. Today's date: 07/14/17 PCP: Lovely Vicente MD GRAIN SHOVELER: None Place of Service: [facility] Reason for Consult: Dr. Webber has requested [...] 33.75) performed by Yuan Webber MD at [facility] OR ??? PRO CABG, ARTERY-VEIN, TWO N/A 07/07/2017 @CABG, TWO VENOUS GRAFTS & ARTERIAL GRAFT (WRVU 7.93) performed by Yuan Webber MD at [facility] OR ??? PRO COLONOSCOPY, REMV LESN, SNARE 01/16/2014 COLONOSCOPY, POLYPECTOMY, REMOVAL LESION BY SNARE performed by Nohemi Jaimes MD at [facility] ENDOSCOPY ??? PRO ENDOSCOPY W/VIDEO-ASST VEIN HARVEST, CABG Right 07/07/2017 ENDOSCOPIC HARVEST VEIN(S) FOR CABG (WRVU 0.31) performed by Yuan Webber MD at [facility] OR ??? PRO THYROIDECTOMY 03/28/2013 THYROIDECTOMY, TOTAL OR COMPLETE performed by Manny Mcknight MD at [facility] Outpt Meds: Current Outpatient Prescriptions Medication [...] following studies: EKG 07/14/17: NSR 75 bpm, MARBLE AND GRANITE POLISHER anterior infarct, LAD CXR 07/11/17: FINDINGS: Sternotomy wires. The patient has been extubated, left chest tube removed, and Archer-Suzi catheter removed since the 07/07/2017 study. Atelectasis [...] was discussed with Zehra. Jaden Kelley MD Filling Carrier Pager [phone] CARDIOLOGY ATTENDING NOTE Patient: Gregory Hoang Date [...] heart failure clinic. DAPHNE SHAHID MD Pager [phone] Plan of Care - Alden Chavarria PTA [...] home with assist Alden Chavarria PTA Pager: [phone] Inpatient Physical Therapy Problem: Acute Rehab Services [...] sit/sit to supine -- Bed Mobility Goal, [place] Level supervision required -- Bed Mobility Goal, [...] - 3 days -- Gait Training Goal, [place] Level supervision required -- Gait Training Goal, [...] days -- Transfer Training Goal, Activity Type vqg-ng-okvym/cjqsk-qw-hns;efa-dr-poqed/rrtem-dg-tvq;toilet -- Transfer Train Goal, [place] Level supervision required -- Transfer Training Goal, [...] keeping present for 2 days per family. Motor Adjuster noted of frustrations, house keeping sent to room. Patient offered showered twice, refused. at bedside, frustrated that shower not complete, informed that patient had refused several times. requesting to see BIODIESEL PRODUCTION ASSOCIATE, paged sent to Martha, will come to bedside (middle of consult). not willing to wait, Martha notified that family had gone home. Encouraged to come for morning rounds a t 8am. Diabetes team at bedside - insulin adjustments made. Call cabello in reach. Continue to monitor. PLAN MOVING FORWARD: Ambulate, dressing changes BID, Please change drsg at 4am per Martha BIODIESEL PRODUCTION ASSOCIATE request. INDIVIDUALIZED FALL PREVENTION INTERVENTIONS: Patient-specific fall [...] levels on the lower side, 60ml of [place] juice given after a FS of 80. [...] monitoring required during toileting and ADLs]: RN FISH CONSERVATIONIST Surveillance [continuous indirect monitoring]: Barrett Monitor CPG [...] Anticipated Discharge Disposition: home with assist Pager: [phone] CLARISSA SEGAL, PT 07/12/2017 Physical Therapy Rehabilitation [...] to sit/sit to supine Bed Mobility Goal, [place] Level supervision required Bed Mobility Goal, Additional Goal adheres to psternal precautions for transfer Goal: Gait Training Goal Stand Alone Therapy Goal Outcome: Ongoing (Interventions Implemented as Appropriate) 07/12/17 1225 Gait Training Goal Gait Training Goal, Date Established 07/12/17 Gait Training Goal, Time to Achieve 2 - 3 days Gait Training Goal, [place] Level supervision required Gait Training Goal, Assist [...] 3 days Transfer Training Goal, Activity Type cgh-ry-mruiz/dytsi-lr-nzg;mah-ak-vkvow/krgqv-vy-sgy;toilet Transfer Train Goal, [place] Level supervision required Transfer Training Goal, Additional Goal adheres to sternal precautions during transfer Consult Note - Octavia Vaughn RN - 07/12/2017 10:50 AM EST [facility] CARDIAC REHABILITATION Gregory Hoang was seen today regarding participation in the outpatient Phase 2 Cardiac Rehabilitation at [facility]. The patient agrees to a referral [...] IV site, amio to other piv and DIGITAL HARDWARE DESIGN ENGINEER at bedside to help assess, IV removed. [...] staff, he stood and marched in place. Onley weak, wanting to sit back down. Remained [...] Health/Prescription Coverage: Primary Insurance: MEDICARE Secondary Insurance: [employer] [place] Prescription Coverage: yes Preferred Pharmacy: [facility] Other: none Primary Care Provider: Lovely Vicente MD [phone] Patient/Caregiver Goals of Treatment:live and get my breath back Potential Needs for Transition of Care: Rehab/SNF: [facility] Home Health: NA DME: TBD Dialysis: na Community Resources: available Transportation: yes Other: none Anticipated Barriers to Discharge/Special Considerations: none Plan: Likely SNF Rehab before home A member of the Care Management team will continue to monitor progress, follow for continuity of care and assist with transition of care planning. ERLIN Weiss Pager: [phone] Consult Note - Katerin Azul RN - [...] management and to provide a review of detention diabetes care. Diabetes History: Gregory Hoang has [...] potential to d/c gtt and start CF. liquor stores and agencies supervisor diabetes care: Medications - Outpatient treatment regimen recommendations pending based on the hospital course. Monitoring - continue BG tid ac & hs Diet - low fat/low carb diet Exercise - weight-bearing exercise 30 min/day, as tolerated Thank you for allowing us to provide care for your patient W/E coverage, Dr. Jeane Tatum, pager [phone] Katerin Azul APRN Endocrinology Diabetes Management Pager [phone] Plan of Care - Stephanie Godoy, RN [...] Webber MD - 07/07/2017 6:27 PM EST [facility] Operative Note Patient Name: Gregory Hoang : [id number] MR#: [id number] Case Date: 07/07/2017 Surgeon: Surgeon(s) and Role: * Yuan Webber MD - Primary * Michael Drake PA - Physician Research Chef * Linda Flores PA - Physician Research Chef Preoperative diagnosis: 3VD Postoperative diagnosis: CAD, severe [...] Operative Note Patient Name: Gregory Hoang : [id number] MR#: [id number] Case Date: 07/07/2017 Surgeon: Surgeon(s) and Role: * Yuan Webber MD - Primary * Michael Drake PA - Physician Research Chef * Linda Flores PA - Physician Research Chef Preoperative diagnosis: 3VD Postoperative diagnosis: CAD, severe [...] (reference Cardiac: ACS (Acute Coronary Syndrome) (Adult) [facility]). 07/07/17621 Cardiac: ACS (Acute Coronary Syndrome) Problems [...] major CV events such as , stroke, ME, repeat revascularization compared to PCI). In this [...] Hahn, MS3 [employer] [facility] Cardiology S1 (Pager [phone]) Plan of Care - Emelia Ibarra RN [...] hospital and ruled infor non-ST segment elevation ME. This almost certainly represents the residual of [...] [facility] ENDOSCOPY ??? PRO THYROIDECTOMY 03/28/2013 THYROIDECTOMY, TOTAL OR COMPLETE performed by Manny Mcknight MD at [facility] MAIN OR Social History: Social History [...] with other involved physicians Yuan Webber MD [phone] Med Student Progress Note - Katty Hahn [...] major CV events such as , stroke, ME, repeat revascularization compared to PCI). In this [...] or BiPAP - s/p lasix in the labor relations analyst, was net -1.5L - s/p plavix load, [...] insulin drip - hold metformin - f/u [facility] ?? #Home Meds - continue levothyroxine 175mcg - CPAP at night ?? # Routine - DVT PPx: heparin drip - Diet: Healthy heart diet, NPO at midnight for CABG tomorrow - Code Status: FULL - Dispo: CVCC Katty Hahn, M3 [facility] Cardiology S1 (Pager [phone]) Plan of Care - Stephanie Godoy RN - 07/06/2017 5:00 AM EST Problem: Patient Care Overview Goal: Plan of Care Review 07/06/17 6486 Coping/Psychosocial Plan Of Care Reviewed With patient;family [...] in urinal without difficulty. Lasix given in labor relations analyst, 1.4 L out at this time. Pt [...] Outcome: Ongoing (Interventions Implemented as Appropriate) 07/06/17 7336 Cardiac: ACS (Acute Coronary Syndrome) Problems Assessed [...] Visit Cardiology Vitaliy Nobles MD [facility] CARDIOLOGY [place] 0375 (Wo rk) Scheduled Orders Name Type [...] procedure are i n the results section. ERP IMPLEMENTATION CONSULTANT SCAN 07/15/2017 12:00 Res ults for this [...] Routine 07/08/2017 4:00 Results f or this ([facility]) AM EST procedure are i n the [...] Routine 07/07/2017 5:15 Results f or this ([facility]) AM EST procedure are i n the [...] Routine 07/06/2017 7:40 Results f or this ([facility]) PM EST procedure are i n the [...] Timed 07/06/2017 2:10 Results f or this ([facility]/CGP) PM EST [...] section. TYPE AND SCREEN Routine 07/06/2017 12:00 ([facility]/SHANDA) PM EST APTT STAT 07/06/2017 11:24 Results [...] Routine 07/06/2017 8:10 Results f or this ([facility]) AM EST procedure are i n the [...] Routine 07/06/2017 2:20 Results f or this ([facility]) AM EST procedure are i n the [...] Routine 07/05/2017 8:20 Results f or this ([facility]) PM EST procedure are i n the [...] Timed 07/05/2017 4:55 Results f or this ([facility]) PM EST procedure are i n the [...] EXAMINATION: XR CHEST PA AND LATERAL ([employer]) CLINICAL HISTORY: CABG x 3 TECHNIQUE: PA [...] Michelle Monaco at 08/19/2017 10:30 AM Martha Nila Nuñezshawanda QUINONES IMG DX ORDERABLES SCAN DOC: ERP IMPLEMENTATION CONSULTANT (07/15/2017 12:00 AM EST) Narrative 07/15/2017 12:00 [...] Glucose 186 65 - 199 [facility] mg/dL [facility] Comment: Supplemental ranges: <140 mg/dL before meals <180 mg/dL all other times of the day Specimen Anatomical Collection Method Collection Time Receive d Time (Source) Location / / Volume Laterality Blood specimen 07/14/2017 11:56 7 (specimen) AM EST 11:56 AM EST Yuan Webber MD POINT OF CARE TEST ORDERABLE S Performing Organization Address City/State/ZIP [place] [address] POCT Glucose (07/14/2017 7:52 AM EST) athologist Signature POC Glucose 126 65 - 199 [facility] mg/dL [facility] Comment: Supplemental ranges: <140 mg/dL before meals <180 mg/dL all other times of the day Specimen Anatomical Collection Method Collection Time Receive d Time (Source) Location / / Volume Laterality Blood specimen 07/14/2017 7:52 AM 017 7:52 (specimen) EST AM EST Yuan Webber MD POINT OF CARE TEST ORDERABLE S Performing Organization Address City/State/ZIP [place] [address] (ABNORMAL) Prothrombin Time (07/14/2017 4:46 AM EST) athologist Signature PT 26.4 (H) 11.8 - 14.0 [facility] LABORATORY INR 2.4 (H) 0.9 - [...] Wilson STACIE HEMATOLOGY ORDERABLES Performing Organization Address City/[facility]/ZIP Code Phon e Number [address] Potassium (07/14/2017 4:46 AM EST) athologist Signature Potassium 4.3 3.5 - 5.0 [facility] mmol/L [facility] Comment: Please note: ??Patients with [...] Address City/State/ZIP [place] [address] POCT Glucose (07/14/2017 4:34 AM EST) athologist Signature POC Glucose 115 65 - 199 [facility] mg/dL [facility] Comment: Supplemental ranges: <140 mg/dL before meals <180 mg/dL all other times of the day Specimen Anatomical Collection Method Collection Time Receive d Time (Source) Location / / Volume Laterality Blood specimen 07/14/2017 4:34 AM 017 4:34 (specimen) EST AM EST Yuan Webber MD POINT OF CARE TEST ORDERABLE S Performing Organization Address City/State/ZIP Code Phon e Number [address] POCT Glucose (07/13/2017 11:33 PM EST) athologist Signature POC Glucose 132 65 - 199 [place] mg/dL [facility] Comment: Supplemental ranges: <140 mg/dL before meals <180 mg/dL all other times of the day Specimen Anatomical Collection Method Collection Time Receive d Time (Source) Location / / Volume Laterality Blood specimen 07/13/2017 11:33 7 (specimen) PM EST 11:33 PM EST Yuan Webber MD POINT OF CARE TEST ORDERABLE S Performing Organization Address City/[facility]/ZIP Code Phon e Number [address] POCT Glucose (07/13/2017 9:25 PM EST) athologist Signature POC Glucose 121 65 - 199 [place] mg/dL [facility] Comment: Supplemental ranges: <140 mg/dL before meals <180 mg/dL all other times of the day Specimen Anatomical Collection Method Collection Time Receive d Time (Source) Location / / Volume Laterality Blood specimen 07/13/2017 9:25 PM 017 9:25 (specimen) EST PM EST Yuan Webber MD POINT OF CARE TEST ORDERABLE S Performing Organization Address City/[facility]/ZIP [place] [address] POCT Glucose (07/13/2017 4:55 PM EST) athologist Signature POC Glucose 79 65 - 199 [place] mg/dL [facility] Comment: Supplemental ranges: <140 mg/dL before meals <180 mg/dL all other times of the day Specimen Anatomical Collection Method Collection Time Receive d Time (Source) Location / / Volume Laterality Blood specimen 07/13/2017 4:55 PM 017 4:55 (specimen) EST PM EST Yuan Webber MD POINT OF CARE TEST ORDERABLE S Performing Organization Address City/State/ZIP [place] [address] POCT Glucose (07/13/2017 11:16 AM EST) athologist Signature POC Glucose 163 65 - 199 [facility] Comment: Supplemental ranges: <140 mg/dL before meals <180 mg/dL all other times of the day Specimen Anatomical Collection Method Collection Time Receive d Time (Source) Location / / Volume Laterality Blood specimen 07/13/2017 11:16 7 (specimen) AM EST 11:16 AM EST Yuan Webber MD POINT OF CARE TEST ORDERABLE S Performing Organization Address City/State/ZIP Code Phon e Number [address] POCT Glucose (07/13/2017 8:07 AM EST) athologist Signature POC Glucose 96 65 - 199 [facility] mg/dL [facility] Comment: Supplemental ranges: <140 mg/dL before meals <180 mg/dL all other times of the day Specimen Anatomical Collection Method Collection Time Receive d Time (Source) Location / / Volume Laterality Blood specimen 07/13/2017 8:07 AM 017 8:07 (specimen) EST AM EST Yuan Webber MD POINT OF CARE TEST ORDERABLE S Performing Organization Address City/State/ZIP [place] [address] (ABNORMAL) Prothrombin Time (07/13/2017 4:26 AM EST) athologist Signature PT 20.8 (H) 11.8 - 14.0 [facility] LABORATORY INR 1.8 (H) 0.9 - [...] Organization Address City/State/ZIP [place] [address] (ABNORMAL) Basic Metabolic Panel (non-fasting) (07/13/2017 4:26 AM EST) athologist Signature Glucose Lvl 95 65 - 199 [facility] mg/dL [facility] Comment: Diabetes: >=200 mg/dL [...] 15 mmol/L [facility] Calcium 7.7 (L) 8.5 - 10.5 mg/dL [facility] Estimated GFR 60 >=60 [facility] Comment: The reported eGFR should be multiplied b y 1.2 for patients. The MDRD is not an appropriate measure o f renal function for patients with body mass extremes or in patients with acute kidney failure. http://Mojostreet/DHnkdep http://Mojostreet/DHMCnkf Specimen Anatomical Collection Method Collection Time Receive d Time (Source) Location / / Volume Laterality Blood specimen 07/13/2017 4:26 AM 017 4:46 (specimen) EST AM EST Resulting Agency Comment Spec In Lab Makayla Wilson APRN CHEMISTRY ORDERABLES Performing Organization Address City/State/ZIP Code Phon e Number [address] POCT Glucose (07/13/2017 3:52 AM EST) athologist Signature POC Glucose 93 65 - 199 [place] mg/dL [facility] Comment: Supplemental ranges: <140 mg/dL before meals <180 mg/dL all other times of the day Specimen Anatomical Collection Method Collection Time Receive d Time (Source) Location / / Volume Laterality Blood specimen 07/13/2017 3:52 AM 017 3:52 (specimen) EST AM EST Yuan Webber MD POINT OF CARE TEST ORDERABLE S Performing Organization Address City/[facility]/ZIP [place] [address] POCT Glucose (07/13/2017 12:21 AM EST) athologist Signature POC Glucose 80 65 - 199 [facility] mg/dL [facility] Comment: Supplemental ranges: <140 mg/dL before meals <180 mg/dL all other times of the day Specimen Anatomical Collection Method Collection Time Receive d Time (Source) Location / / Volume Laterality Blood specimen 07/13/2017 12:21 7 (specimen) AM EST 12:21 AM EST Yuan Webber MD POINT OF CARE TEST ORDERABLE S Performing Organization Address City/State/ZIP Code Phon e Number [address] POCT Glucose (07/12/2017 8:22 PM EST) athologist Signature POC Glucose 119 65 - 199 [facility] mg/dL [facility] Comment: Supplemental ranges: <140 mg/dL before meals <180 mg/dL all other times of the day Specimen Anatomical Collection Method Collection Time Receive d Time (Source) Location / / Volume Laterality Blood specimen 07/12/2017 8:22 PM 017 8:22 (specimen) EST PM EST Yuan Webber MD POINT OF CARE TEST ORDERABLE S Performing Organization Address City/State/ZIP Code Phon e Number [address] POCT Glucose (07/12/2017 4:02 PM EST) athologist Signature POC Glucose 114 65 - 199 [place] mg/dL [facility] Comment: Supplemental ranges: <140 mg/dL before meals <180 mg/dL all other times of the day Specimen Anatomical Collection Method Collection Time Receive d Time (Source) Location / / Volume Laterality Blood specimen 07/12/2017 4:02 PM 017 4:02 (specimen) EST PM EST Yuan Webber MD POINT OF CARE TEST ORDERABLE S Performing Organization Address City/[facility]/ZIP Code Phon e Number [address] POCT Glucose (07/12/2017 11:28 AM EST) athologist Signature POC Glucose 164 65 - 199 [place] mg/dL [facility] Comment: Supplemental ranges: <140 mg/dL before meals <180 mg/dL all other times of the day Specimen Anatomical Collection Method Collection Time Receive d Time (Source) Location / / Volume Laterality Blood specimen 07/12/2017 11:28 7 (specimen) AM EST 11:28 AM EST Yuan Webber MD POINT OF CARE TEST ORDERABLE S Performing Organization Address City/State/ZIP [place] [address] POCT Glucose (07/12/2017 7:34 AM EST) athologist Signature POC Glucose 109 65 - 199 [place] mg/dL [facility] Comment: Supplemental ranges: <140 mg/dL before meals <180 mg/dL all other times of the day Specimen Anatomical Collection Method Collection Time Receive d Time (Source) Location / / Volume Laterality Blood specimen 07/12/2017 7:34 AM 017 7:34 (specimen) EST AM EST Yuan Webber MD POINT OF CARE TEST ORDERABLE S Performing Organization Address City/State/ZIP [place] [address] (ABNORMAL) Basic Metabolic Panel (non-fasting) (07/12/2017 4:11 AM EST) P athologist Signature Glucose Lvl 92 65 - 199 [facility] mg/dL [facility] Comment: Diabetes: >=200 mg/dL plus symp toms BUN 31 (H) 10 - 20 mg/dL [facility] Creatinine 1.23 0.80 - 1.50 mg/dL [facility] [...] Gap Not Calculated 5 - 15 mmol/L [facility] Calcium 8.1 (L) 8.5 - 10.5 mg/dL [facility] Estimated GFR 58 (L) >=60 [facility] Comment: The reported eGFR should be multiplied b y 1.2 for patients. The MDRD is not an appropriate measure o f renal function for patients with body mass extremes or in patients with acute kidney failure. http://[employer]oneworld/DHnkdep http://Mojostreet/DHMCnkf Specimen Anatomical Collection Method Collection Time Receive d Time (Source) Location / / Volume Laterality Blood specimen 07/12/2017 4:11 AM 017 8:57 (specimen) EST AM EST Resulting Agency Comment Spec In Lab Makayla Wilson APRN CHEMISTRY ORDERABLES Performing Organization Address City/State/ZIP [place] [address] (ABNORMAL) Prothrombin Time (07/12/2017 4:11 AM EST) P athologist Signature PT 15.4 (H) 11.8 - 14.0 [facility] LABORATORY INR 1.2 (H) 0.9 - [...] Resulting Agency Comment Spec In Lab Makayla [facility] HEMATOLOGY ORDERABLES Performing Organization Address City/[facility]/ZIP [place] [address] Potassium (07/12/2017 4:11 AM EST) P athologist Signature Potassium 3.8 3.5 - 5.0 [facility] mmol/L [facility] Comment: Please note: ??Patients with [...] Resulting Agency Comment Spec In [facility] Performing Organization Address City/State/ZIP [place] [address] POCT Glucose (07/12/2017 4:10 AM EST) athologist Signature POC Glucose 90 65 - 199 [place] mg/dL [facility] Comment: Supplemental ranges: <140 mg/dL before meals <180 mg/dL all other times of the day Specimen Anatomical Collection Method Collection Time Receive d Time (Source) Location / / Volume Laterality Blood specimen 07/12/2017 4:10 AM 017 4:10 (specimen) EST AM EST Yuan Webber MD POINT OF CARE TEST ORDERABLE S Performing Organization Address City/State/ZIP [place] [address] POCT Glucose (07/11/2017 11:57 PM EST) athologist Signature POC Glucose 98 65 - 199 [facility] mg/dL [facility] Comment: Supplemental ranges: <140 mg/dL before meals <180 mg/dL all other times of the day Specimen Anatomical Collection Method Collection Time Receive d Time (Source) Location / / Volume Laterality Blood specimen 07/11/2017 11:57 7 (specimen) PM EST 11:57 PM EST Yuan Webber MD POINT OF CARE TEST ORDERABLE S Performing Organization Address City/[facility]/ZIP [place] [address] POCT Glucose (07/11/2017 8:32 PM EST) athologist Signature POC Glucose 146 65 - 199 [place] mg/dL [facility] Comment: Supplemental ranges: <140 mg/dL before meals <180 mg/dL all other times of the day Specimen Anatomical Collection Method Collection Time Receive d Time (Source) Location / / Volume Laterality Blood specimen 07/11/2017 8:32 PM 017 8:32 (specimen) EST PM EST Yuan Webber MD POINT OF CARE TEST ORDERABLE S Performing Organization Address City/State/ZIP [place] [address] XR Chest PA & [...] e xtubated, left chest tube removed, and Archer-Suzi catheter removed since the study. Atelectasis at [...] e xtubated, left chest tube removed, and Archer-Suzi catheter removed since the study. Atelectasis at [...] POC Glucose 223 (H) 65 - 199 [facility] mg/dL [facility] Comment: Supplemental ranges: <140 mg/dL before meals <180 mg/dL all other times of the day Specimen Anatomical Collection Method Collection Time Receive d Time (Source) Location / / Volume Laterality Blood specimen 07/11/2017 4:05 PM 017 4:05 (specimen) EST PM EST Yuan Webber MD POINT OF CARE TEST ORDERABLE S Performing Organization Address City/State/ZIP Code Phon e Number [address] POCT Glucose (07/11/2017 11:55 AM EST) P athologist Signature POC Glucose 176 65 - 199 [place] mg/dL [facility] Comment: Supplemental ranges: <140 mg/dL before meals <180 mg/dL all other times of the day Specimen Anatomical Collection Method Collection Time Receive d Time (Source) Location / / Volume Laterality Blood specimen 07/11/2017 11:55 7 (specimen) AM EST 11:55 AM EST Yuan Webber MD POINT OF CARE TEST ORDERABLE S Performing Organization Address City/State/ZIP [place] [address] POCT Glucose (07/11/2017 7:53 AM EST) athologist Signature POC Glucose 189 65 - 199 [place] mg/dL [facility] Comment: Supplemental ranges: <140 mg/dL before meals <180 mg/dL all other times of the day Specimen Anatomical Collection Method Collection Time Receive d Time (Source) Location / / Volume Laterality Blood specimen 07/11/2017 7:53 AM 017 7:53 (specimen) EST AM EST Yuan Webber MD POINT OF CARE TEST ORDERABLE S Performing Organization Address City/State/ZIP Code Phon e Number [address] POCT Glucose (07/11/2017 4:22 AM EST) athologist Signature POC Glucose 151 65 - 199 [place] mg/dL [facility] Comment: Supplemental ranges: <140 mg/dL before meals <180 mg/dL all other times of the day Specimen Anatomical Collection Method Collection Time Receive d Time (Source) Location / / Volume Laterality Blood specimen 07/11/2017 4:22 AM 017 4:22 (specimen) EST AM EST Yuan Webber MD POINT OF CARE TEST ORDERABLE S Performing Organization Address City/[facility]/ZIP Code Phon e Number [address] Potassium (07/11/2017 2:20 AM EST) athologist Signature Potassium 4.5 3.5 - 5.0 [facility] mmol/L [facility] Comment: Please note: ??Patients with [...] Webber MD CHEMISTRY ORDERABLES Performing Organization Address City/[facility]/ZIP [place] [address] POCT Glucose (07/11/2017 12:17 AM EST) athologist Signature POC Glucose 162 65 - 199 [facility] mg/dL [facility] Comment: Supplemental ranges: <140 mg/dL before meals <180 mg/dL all other times of the day Specimen Anatomical Collection Method Collection Time Receive d Time (Source) Location / / Volume Laterality Blood specimen 07/11/2017 12:17 7 (specimen) AM EST 12:17 AM EST Yuan Webber MD POINT OF CARE TEST ORDERABLE S Performing Organization Address City/[facility]/ZIP [place] [address] POCT Glucose (07/10/2017 8:47 PM EST) athologist Signature POC Glucose 191 65 - 199 [facility] mg/dL [facility] Comment: Supplemental ranges: <140 mg/dL before meals <180 mg/dL all other times of the day Specimen Anatomical Collection Method Collection Time Receive d Time (Source) Location / / Volume Laterality Blood specimen 07/10/2017 8:47 PM 017 8:47 (specimen) EST PM EST Yuan Webber MD POINT OF CARE TEST ORDERABLE S Performing Organization Address City/State/ZIP [place] [address] POCT Glucose (07/10/2017 4:06 PM EST) athologist Signature POC Glucose 131 65 - 199 [place] mg/dL [facility] Comment: Supplemental ranges: <140 mg/dL before meals <180 mg/dL all other times of the day Specimen Anatomical Collection Method Collection Time Receive d Time (Source) Location / / Volume Laterality Blood specimen 07/10/2017 4:06 PM 017 4:06 (specimen) EST PM EST Yuan Webber MD POINT OF CARE TEST ORDERABLE S Performing Organization Address City/State/ZIP Code Phon e Number [address] POCT Glucose (07/10/2017 3:08 PM EST) athologist Signature POC Glucose 151 65 - 199 [place] mg/dL [facility] Comment: Supplemental ranges: <140 mg/dL before meals <180 mg/dL all other times of the day Specimen Anatomical Collection Method Collection Time Receive d Time (Source) Location / / Volume Laterality Blood specimen 07/10/2017 3:08 PM 017 3:08 (specimen) EST PM EST Yuan Webber MD POINT OF CARE TEST ORDERABLE S Performing Organization Address City/State/ZIP Code Phon e Number [address] POCT Glucose (07/10/2017 2:25 PM EST) athologist Signature POC Glucose 146 65 - 199 [facility] mg/dL [facility] Comment: Supplemental ranges: <140 mg/dL before meals <180 mg/dL all other times of the day Specimen Anatomical Collection Method Collection Time Receive d Time (Source) Location / / Volume Laterality Blood specimen 07/10/2017 2:25 PM 017 2:25 (specimen) EST PM EST Yuan Webber MD POINT OF CARE TEST ORDERABLE S Performing Organization Address City/State/ZIP Code Phon e Number [address] POCT Glucose (07/10/2017 1:23 PM EST) athologist Signature POC Glucose 166 65 - 199 [place] mg/dL [facility] LABORATORY Comment: Supplemental ranges: <140 mg/dL before meals <180 mg/dL all other times of the day Specimen Anatomical Collection Method Collection Time Receive d Time (Source) Location / / Volume Laterality Blood specimen 07/10/2017 1:23 PM 017 1:23 (specimen) EST PM EST Yuan Webber MD POINT OF CARE TEST ORDERABLE S Performing Organization Address City/[facility]/ZIP [place] [address] POCT Glucose (07/10/2017 11:52 AM EST) athologist Signature POC Glucose 157 65 - 199 [place] mg/dL [facility] LABORATORY Comment: Supplemental ranges: <140 mg/dL before meals <180 mg/dL all other times of the day Specimen Anatomical Collection Method Collection Time Receive d Time (Source) Location / / Volume Laterality Blood specimen 07/10/2017 11:52 7 (specimen) AM EST 11:52 AM EST Yuan Webber MD POINT OF CARE TEST ORDERABLE S Performing Organization Address City/State/ZIP [place] [address] POCT Glucose (07/10/2017 11:01 AM EST) athologist Signature POC Glucose 158 65 - 199 [facility] [place] mg/dL [facility] LABORATORY Comment: Supplemental ranges: <140 mg/dL before meals <180 mg/dL all other times of the day Specimen Anatomical Collection Method Collection Time Receive d Time (Source) Location / / Volume Laterality Blood specimen 07/10/2017 11:01 7 (specimen) AM EST 11:01 AM EST Yuan Webber MD POINT OF CARE TEST ORDERABLE S Performing Organization Address City/State/ZIP Code Phon e Number [address] POCT Glucose (07/10/2017 9:54 AM EST) athologist Signature POC Glucose 160 65 - 199 [place] mg/dL [facility] LABORATORY Comment: Supplemental ranges: <140 mg/dL before meals <180 mg/dL all other times of the day Specimen Anatomical Collection Method Collection Time Receive d Time (Source) Location / / Volume Laterality Blood specimen 07/10/2017 9:54 AM 017 9:54 (specimen) EST AM EST Yuan Webber MD POINT OF CARE TEST ORDERABLE S Performing Organization Address City/[facility]/ZIP Code Phon e Number [address] POCT Glucose (07/10/2017 8:58 AM EST) athologist Signature POC Glucose 183 65 - 199 [place] mg/dL [facility] LABORATORY Comment: Supplemental ranges: <140 mg/dL before meals <180 mg/dL all other times of the day Specimen Anatomical Collection Method Collection Time Receive d Time (Source) Location / / Volume Laterality Blood specimen 07/10/2017 8:58 AM 017 8:58 (specimen) EST AM EST Yuan Webber MD POINT OF CARE TEST ORDERABLE S Performing Organization Address City/[facility]/ZIP [place] [address] POCT Glucose (07/10/2017 8:01 AM EST) athologist Signature POC Glucose 173 65 - 199 [place] mg/dL [facility] LABOR[facility]ORY Comment: Supplemental ranges: <140 mg/dL before meals <180 mg/dL all other times of the day Specimen Anatomical Collection Method Collection Time Receive d Time (Source) Location / / Volume Laterality Blood specimen 07/10/2017 8:01 AM 017 8:01 (specimen) EST AM EST Yuan Webber MD POINT OF CARE TEST ORDERABLE S Performing Organization Address City/State/ZIP Code Phon e Number [address] POCT Glucose (07/10/2017 7:05 AM EST) athologist Signature POC Glucose 166 65 - 199 [facility] Comment: Supplemental ranges: <140 mg/dL before meals <180 mg/dL all other times of the day Specimen Anatomical Collection Method Collection Time Receive d Time (Source) Location / / Volume Laterality Blood specimen 07/10/2017 7:05 AM 017 7:05 (specimen) EST AM EST Yuan Webber MD POINT OF CARE TEST ORDERABLE S Performing Organization Address City/State/ZIP Code Phon e Number [address] POCT Glucose (07/10/2017 6:00 AM EST) athologist Signature POC Glucose 162 65 - 199 [facility]dL [facility] Comment: Supplemental ranges: <140 mg/dL before meals <180 mg/dL all other times of the day Specimen Anatomical Collection Method Collection Time Receive d Time (Source) Location / / Volume Laterality Blood specimen 07/10/2017 6:00 AM 017 6:00 (specimen) EST AM EST Yuan Webber MD POINT OF CARE TEST ORDERABLE S Performing Organization Address City/State/ZIP Code Phon e Number [address] (ABNORMAL) Differential, Automated (07/10/2017 4:28 AM EST) Patholo gist Method Time Signature Neutrophils % 87.9 % [facility] LABORATORY Neutr Abs (ANC) 10.70 (H) 1.70 - [facility] 6.10 [facility] x10(3)/[facility] L LABORATORY Lymphocytes % 3.9 % [facility] LABORATORY Lymphocytes Abs 0.5 (L) 0.9 - 3.2 [facility] x10(3)/[facility] LABORATORY Monocytes % 7.0 % [facility] LABORATORY Monocyte Abs 0.8 0.3 - 0.9 [facility] x10(3)/[facility] LABORATORY Eosinophils % 0.3 % [facility] LABOR[facility]ORY Eosinophils Abs 0.0 0.0 - 0.4 [facility] x10(3)/[facility] LABORATORY Basophils % 0.2 % [facility] LABORATORY Basophils Abs 0.0 0.0 - 0.1 [facility] x10(3)/[facility] LABORATORY Immature Gran % [...] Gran Abs 0.08 (H) 0.00 - 0.04 x10(3)/[facility] LABORATORY Specimen Anatomical Collection Method Collection Time Receive d Time (Source) Location / / Volume Laterality Blood specimen 07/10/2017 4:28 AM 017 4:36 (specimen) EST AM EST Resulting Agency Comment Spec In Lab Yuan Webber MD HEMATOLOGY ORDERABLES Performing Organization Address City/State/ZIP [place] [address] (ABNORMAL) Hemogram (07/10/2017 4:28 AM EST) Analysis Performed At Patho logist Time Signature WBC 12.2 (H) 4.0 - 9.5 [facility] x10(3)/[facility] LABORATORY RBC 3.31 (L) 4.58 - [facility] 5.54 [facility] x10(6)/[facility] LABORATORY Hemoglobin 9.8 (L) 13.7 - [facility] 16.5 gm/dL [facility] LABORATORY Hematocrit 30.0 (L) 40.5 - [facility] 48.5 % [facility]ATORY MCV 90.6 82.9 - [facility] 93.1 fL [facility]ATORY MCH 29.6 27.5 - [facility] 32.1 pg [facility] LABORATORY MCHC 32.7 32.0 - [facility] 35.7 gm/dL [facility] LABORATORY Platelets 135 (L) 145 - 357 [facility] x10(3)/[facility] LABORATORY RDWSD 50.8 (H) 36.0 - [facility] 45.0 [facility] LABORATORY RDWCV 15.4 (H) 11.4 - [facility] 13.8 % [facility] LABORATORY MPV 10.0 7.6 - 12.9 [facility] LABORATORY nRBC % Auto 0.0 % [facility] LABORATORY nRBC Abs Auto 0.000 0.000 - [facility] 0.000 [facility] x10(3)/[facility] LABORATORY Specimen Anatomical Collection Method Collection Time Receive d Time (Source) Location / / Volume Laterality Blood specimen 07/10/2017 4:28 AM 017 4:36 (specimen) EST AM EST Resulting Agency Comment Spec In Lab Yuan Webber MD HEMATOLOGY ORDERABLES Performing Organization Address City/State/ZIP [place] [address] (ABNORMAL) Basic Metabolic Panel (non-fasting) (07/10/2017 4:28 AM EST) P athologist Signature Glucose Lvl 178 65 - 199 [facility] mg/dL [facility] LABORATORY Comment: Diabetes: >=200 mg/dL plus symp toms BUN 20 10 - 20 mg/dL [facility] [...] Anion Gap 15 5 - 15 mmol/L [facility] LABORATORY Calcium 7.4 (L) 8.5 - 10.5 mg/dL [facility] LABORATORY Estimated GFR 60 >=60 [facility] LABORATORY Comment: The reported eGFR should be multiplied b y 1.2 for patients. The MDRD is not an appropriate measure o f renal function for patients with body mass extremes or in patients with acute kidney failure. [email or web address] [email or web address] Specimen Anatomical Collection Method Collection Time Receive d Time (Source) Location / / Volume Laterality Blood specimen 07/10/2017 4:28 AM 017 4:36 (specimen) EST AM EST Resulting Agency Comment Spec In Lab Yuan Webber MD CHEMISTRY ORDERABLES Performing Organization Address City/State/ZIP Code Phon e Number [address] POCT Glucose (07/10/2017 4:26 AM EST) athologist Signature POC Glucose 176 65 - 199 [facility] mg/dL [facility]OR[facility]ORY Comment: Supplemental ranges: <140 mg/dL before meals <180 mg/dL all other times of the day Specimen Anatomical Collection Method Collection Time Receive d Time (Source) Location / / Volume Laterality Blood specimen 07/10/2017 4:26 AM 017 4:26 (specimen) EST AM EST Yuan Webber MD POINT OF CARE TEST ORDERABLE S Performing Organization Address City/State/ZIP [place] [address] (ABNORMAL) POCT Glucose (07/10/2017 3:06 AM EST) athologist Signature POC Glucose 204 (H) 65 - 199 [facility]dL [facility] Comment: Supplemental ranges: <140 mg/dL before meals <180 mg/dL all other times of the day Specimen Anatomical Collection Method Collection Time Receive d Time (Source) Location / / Volume Laterality Blood specimen 07/10/2017 3:06 AM 017 3:06 (specimen) EST AM EST Yuan Webber MD POINT OF CARE TEST ORDERABLE S Performing Organization Address City/[facility]/ZIP [place] [address] (ABNORMAL) POCT Glucose (07/10/2017 2:10 AM EST) P athologist Signature POC Glucose 203 (H) 65 - 199 [place] mg/dL [facility] LABORATORY Comment: Supplemental ranges: <140 mg/dL before meals <180 mg/dL all other times of the day Specimen Anatomical Collection Method Collection Time Receive d Time (Source) Location / / Volume Laterality Blood specimen 07/10/2017 2:10 AM 017 2:10 (specimen) EST AM EST Yuan Webber MD POINT OF CARE TEST ORDERABLE S Performing Organization Address City/[facility]/ZIP [place] [address] POCT Glucose (07/10/2017 1:09 AM EST) P athologist Signature POC Glucose 196 65 - 199 [place] mg/dL [facility] LABORATORY Comment: Supplemental ranges: <140 mg/dL before meals <180 mg/dL all other times of the day Specimen Anatomical Collection Method Collection Time Receive d Time (Source) Location / / Volume Laterality Blood specimen 07/10/2017 1:09 AM 017 1:09 (specimen) EST AM EST Yuan Webber MD POINT OF CARE TEST ORDERABLE S Performing Organization Address City/State/ZIP [place] [address] POCT Glucose (07/10/2017 12:10 AM EST) P athologist Signature POC Glucose 173 65 - 199 [place] mg/dL [facility] LABORATORY Comment: Supplemental ranges: <140 mg/dL before meals <180 mg/dL all other times of the day Specimen Anatomical Collection Method Collection Time Receive d Time (Source) Location / / Volume Laterality Blood specimen 07/10/2017 12:10 7 (specimen) AM EST 12:10 AM EST Yuan Webber MD POINT OF CARE TEST ORDERABLE S Performing Organization Address City/State/ZIP Code Phon e Number [address] POCT Glucose (07/09/2017 11:01 PM EST) P athologist Signature POC Glucose 140 65 - 199 [place] mg/dL [facility] LABORATORY Comment: Supplemental ranges: <140 mg/dL before meals <180 mg/dL all other times of the day Specimen Anatomical Collection Method Collection Time Receive d Time (Source) Location / / Volume Laterality Blood specimen 07/09/2017 11:01 7 (specimen) PM EST 11:01 PM EST Yuan Webber MD POINT OF CARE TEST ORDERABLE S Performing Organization Address City/State/ZIP [place] [address] POCT Glucose (07/09/2017 10:05 PM EST) athologist Signature POC Glucose 144 65 - 199 [place] mg/dL [facility] LABORATORY Comment: Supplemental ranges: <140 mg/dL before meals <180 mg/dL all other times of the day Specimen Anatomical Collection Method Collection Time Receive d Time (Source) Location / / Volume Laterality Blood specimen 07/09/2017 10:05 7 (specimen) PM EST 10:05 PM EST Yuan Webber MD POINT OF CARE TEST ORDERABLE S Performing Organization Address City/State/ZIP [place] [address] POCT Glucose (07/09/2017 9:31 PM EST) athologist Signature POC Glucose 121 65 - 199 [facility] [place] mg/dL [facility] LABORATORY Comment: Supplemental ranges: <140 mg/dL before meals <180 mg/dL all other times of the day Specimen Anatomical Collection Method Collection Time Receive d Time (Source) Location / / Volume Laterality Blood specimen 07/09/2017 9:31 PM 017 9:31 (specimen) EST PM EST Yuan Webber MD POINT OF CARE TEST ORDERABLE S Performing Organization Address City/State/ZIP Code Phon e Number [address] POCT Glucose (07/09/2017 9:03 PM EST) athologist Signature POC Glucose 98 65 - 199 [place] mg/dL [facility] LABORATORY Comment: Supplemental ranges: <140 mg/dL before meals <180 mg/dL all other times of the day Specimen Anatomical Collection Method Collection Time Receive d Time (Source) Location / / Volume Laterality Blood specimen 07/09/2017 9:03 PM 017 9:03 (specimen) EST PM EST Yuan Webber MD POINT OF CARE TEST ORDERABLE S Performing Organization Address City/[facility]/ZIP Code Phon e Number [address] POCT Glucose (07/09/2017 8:09 PM EST) athologist Signature POC Glucose 117 65 - 199 [place] mg/dL [facility] LABORATORY Comment: Supplemental ranges: <140 mg/dL before meals <180 mg/dL all other times of the day Specimen Anatomical Collection Method Collection Time Receive d Time (Source) Location / / Volume Laterality Blood specimen 07/09/2017 8:09 PM 017 8:09 (specimen) EST PM EST Yuan Webber MD POINT OF CARE TEST ORDERABLE S Performing Organization Address City/State/ZIP [place] [address] POCT Glucose (07/09/2017 5:40 PM EST) athologist Signature POC Glucose 155 65 - 199 [place] mg/dL [facility]ORATORY Comment: Supplemental ranges: <140 mg/dL before meals <180 mg/dL all other times of the day Specimen Anatomical Collection Method Collection Time Receive d Time (Source) Location / / Volume Laterality Blood specimen 07/09/2017 5:40 PM 017 5:40 (specimen) EST PM EST Yuan Webber MD POINT OF CARE TEST ORDERABLE S Performing Organization Address City/State/ZIP Code Phon e Number [address] POCT Glucose (07/09/2017 4:24 PM EST) athologist Signature POC Glucose 164 65 - 199 [place] mg/dL [facility]OR[facility]ORY Comment: Supplemental ranges: <140 mg/dL before meals <180 mg/dL all other times of the day Specimen Anatomical Collection Method Collection Time Receive d Time (Source) Location / / Volume Laterality Blood specimen 07/09/2017 4:24 PM 017 4:24 (specimen) EST PM EST Yuan Webber MD POINT OF CARE TEST ORDERABLE S Performing Organization Address City/[facility]/ZIP Code Phon e Number [address] POCT Glucose (07/09/2017 3:19 PM EST) athologist Signature POC Glucose 166 65 - 199 [place] mg/dL [facility]ORATORY Comment: Supplemental ranges: <140 mg/dL before meals <180 mg/dL all other times of the day Specimen Anatomical Collection Method Collection Time Receive d Time (Source) Location / / Volume Laterality Blood specimen 07/09/2017 3:19 PM 017 3:19 (specimen) EST PM EST Yuan Webber MD POINT OF CARE TEST ORDERABLE S Performing Organization Address City/[facility]/ZIP Code Phon e Number [address] POCT Glucose (07/09/2017 2:26 PM EST) athologist Signature POC Glucose 179 65 - 199 [place] mg/dL [facility]ORATORY Comment: Supplemental ranges: <140 mg/dL before meals <180 mg/dL all other times of the day Specimen Anatomical Collection Method Collection Time Receive d Time (Source) Location / / Volume Laterality Blood specimen 07/09/2017 2:26 PM 017 2:26 (specimen) EST PM EST Yuan Webber MD POINT OF CARE TEST ORDERABLE S Performing Organization Address City/State/ZIP [place] [address] (ABNORMAL) POCT Glucose (07/09/2017 1:29 PM EST) athologist Signature POC Glucose 210 (H) 65 - 199 [place] mg/dL [facility]OR[facility]ORY Comment: Supplemental ranges: <140 mg/dL before meals <180 mg/dL all other times of the day Specimen Anatomical Collection Method Collection Time Receive d Time (Source) Location / / Volume Laterality Blood specimen 07/09/2017 1:29 PM 017 1:29 (specimen) EST PM EST Yuan Webber MD POINT OF CARE TEST ORDERABLE S Performing Organization Address City/State/ZIP [place] [address] POCT Glucose (07/09/2017 12:20 PM EST) athologist Signature POC Glucose 172 65 - 199 [place] mg/dL [facility]OR[facility]ORY Comment: Supplemental ranges: <140 mg/dL before meals <180 mg/dL all other times of the day Specimen Anatomical Collection Method Collection Time Receive d Time (Source) Location / / Volume Laterality Blood specimen 07/09/2017 12:20 7 (specimen) PM EST 12:20 PM EST Yuan Webber MD POINT OF CARE TEST ORDERABLE S Performing Organization Address City/State/ZIP Code Phon [place] [address] POCT Glucose (07/09/2017 11:24 AM EST) athologist Signature POC Glucose 156 65 - 199 [place] mg/dL [facility]ORATORY Comment: Supplemental ranges: <140 mg/dL before meals <180 mg/dL all other times of the day Specimen Anatomical Collection Method Collection Time Receive d Time (Source) Location / / Volume Laterality Blood specimen 07/09/2017 11:24 7 (specimen) AM EST 11:24 AM EST Yuan Webber MD POINT OF CARE TEST ORDERABLE S Performing Organization Address City/State/ZIP Code Phon e Number [address] POCT Glucose (07/09/2017 11:11 AM EST) P athologist Signature POC Glucose 172 65 - 199 [facility] mg/dL [facility]OR[facility] Comment: Supplemental ranges: <140 mg/dL before meals <180 mg/dL all other times of the day Specimen Anatomical Collection Method Collection Time Receive d Time (Source) Location / / Volume Laterality Blood specimen 07/09/2017 11:11 7 (specimen) AM EST 11:11 AM EST Yuan Webber MD POINT OF CARE TEST ORDERABLE S Performing Organization Address City/State/ZIP Code Phon e Number [address] POCT Glucose (07/09/2017 10:08 AM EST) athologist Signature POC Glucose 176 65 - 199 [facility] mg/dL [facility] Comment: Supplemental ranges: <140 mg/dL before meals <180 mg/dL all other times of the day Specimen Anatomical Collection Method Collection Time Receive d Time (Source) Location / / Volume Laterality Blood specimen 07/09/2017 10:08 7 (specimen) AM EST 10:08 AM EST Yuan Webber MD POINT OF CARE TEST ORDERABLE S Performing Organization Address City/State/ZIP Code Phon e Number [place] [id number] POCT Glucose (07/09/2017 8:02 AM EST) athologist Signature POC Glucose 178 65 - 199 [facility] mg/dL [facility]OR[facility]ORY Comment: Supplemental ranges: <140 mg/dL before meals <180 mg/dL all other times of the day Specimen Anatomical Collection Method Collection Time Receive d Time (Source) Location / / Volume Laterality Blood specimen 07/09/2017 8:02 AM 017 8:02 (specimen) EST AM EST Yuan Webber MD POINT OF CARE TEST ORDERABLE S Performing Organization Address City/State/ZIP [place] [address] (ABNORMAL) BLOOD GAS 2 ARTERIAL (07/09/2017 5:37 AM EST) Analysis Performed At Patho logist Time Signature pH Art 7.36 7.35 - [facility] 7.45 [facility]ATORY pCO2 Art 38 35 - 45 [facility] mmHg [facility]ORY pO2 Art 79 (L) 85 - 104 [facility] mmHg [facility]ORY HCO3 Art 20.9 20.0 - [facility] 26.0 [facility] mmol/L [facility] BE Art -4.6 (L) -3.0 - 3.0 [facility] mmol/L [facility]OR[facility]ORY Hgb Blood Gas 10.5 (L) 13.7 - [facility] 16.5 gm/dL [facility]OR[facility]ORY O2HB Art 93.8 (L) 94.0 - [facility] 97.0 % [facility] LABORATORY COHB Art 0.3 % [facility] [...] [facility] LABOR[facility] FIO2 Art 40 % [facility] PF Ratio Art 198 [facility] LABORATORY Specimen Anatomical Collection Method Collection Time Receive d Time (Source) Location / / Volume Laterality Blood specimen 07/09/2017 5:37 AM 017 5:37 (specimen) EST AM EST Yuan Webber MD CHEMISTRY ORDERABLES Performing Organization Address City/[facility]/ZIP Code Phon e Number [address] POCT Glucose (07/09/2017 3:27 AM EST) athologist Signature POC Glucose 192 65 - 199 [facility] mg/dL [facility] Comment: Supplemental ranges: <140 mg/dL before meals <180 mg/dL all other times of the day Specimen Anatomical Collection Method Collection Time Receive d Time (Source) Location / / Volume Laterality Blood specimen 07/09/2017 3:27 AM 017 3:27 (specimen) EST AM EST Yuan Webber MD POINT OF CARE TEST ORDERABLE S Performing Organization Address City/[facility]/ZIP [place] [address] (ABNORMAL) Basic Metabolic Panel (non-fasting) (07/09/2017 2:30 AM EST) athologist Signature Glucose Lvl 179 65 - 199 [facility] mg/dL [facility] Comment: Diabetes: >=200 mg/dL plus symp toms BUN 17 10 - 20 mg/dL [facility] Creatinine 1.34 0.80 - 1.50 mg/dL [facility] [...] Anion Gap 12 5 - 15 mmol/L [facility] Calcium 7.1 (L) 8.5 - 10.5 mg/dL [facility] Comment: result [id number] Estimated GFR 53 (L) >=60 [facility] Comment: The reported eGFR should be multiplied b y 1.2 for patients. The MDRD is not an appropriate measure o f renal function for patients with body mass extremes or in patients with acute kidney failure. [email or web address] [email or web address] Specimen Anatomical Collection Method Collection Time Receive d Time (Source) Location / / Volume Laterality Blood specimen Venous Draw / 07/09/2017 2:30 AM 2016 2:42 (specimen) Unknown EST AM EST Resulting Agency Comment Spec In Lab Yuan Webber MD CHEMISTRY ORDERABLES Performing Organization Address City/[facility]/ZIP [place] [address] (ABNORMAL) Potassium (07/09/2017 2:30 AM EST) P athologist Signature Potassium 5.1 (H) 3.5 - 5.0 [facility] mmol/L [facility] LABORATORY Comment: Please note: ??Patients with [...] Webber MD CHEMISTRY ORDERABLES Performing Organization Address City/[facility]/ZIP [facility] [place] [address] (ABNORMAL) Hemogram (07/09/2017 2:30 AM EST) Analysis Performed At Patho logist Time Signature WBC 12.5 (H) 4.0 - 9.5 [facility] x10(3)/[facility] LABORATORY RBC 3.38 (L) 4.58 - [place] 5.54 [facility] x10(6)/[facility] LABORATORY Hemoglobin 10.1 (L) 13.7 - [place] ZHAORYAN 16.5 gm/dL [facility] LABORATORY Hematocrit 30.3 (L) 40.5 - [place] 48.5 % [facility] LABORATORY MCV 89.6 82.9 - [facility] 93.1 [facility] LABORATORY MCH 29.9 27.5 - [place] ZHAORYAN 32.1 pg [facility] LABORATORY MCHC 33.3 32.0 - [place] ZHAORYAN 35.7 gm/dL [facility] LABORATORY Platelets 127 (L) 145 - 357 [facility] x10(3)/[facility] LABORATORY RDWSD 49.3 (H) 36.0 - [facility] 45.0 [facility] LABORATORY RDWCV 15.2 (H) 11.4 - [facility] 13.8 % [facility] LABORATORY MPV 9.9 7.6 - 12.9 [facility] LABORATORY nRBC % Auto 0.0 % [facility] LABORATORY nRBC Abs Auto 0.000 0.000 - [place] RYAN 0.000 [facility] x10(3)/[facility] LABORATORY Specimen Anatomical Collection Method Collection Time Receive d Time (Source) Location / / Volume Laterality Blood specimen 07/09/2017 2:30 AM 017 2:41 (specimen) EST AM EST Resulting Agency Comment Spec In Lab Yuan Webber MD HEMATOLOGY ORDERABLES Performing Organization Address City/State/ZIP [place] [address] POCT Glucose (07/09/2017 2:10 AM EST) P athologist Signature POC Glucose 169 65 - 199 [facility] mg/dL [facility] LABORATORY Comment: Supplemental ranges: <140 mg/dL before meals <180 mg/dL all other times of the day Specimen Anatomical Collection Method Collection Time Receive d Time (Source) Location / / Volume Laterality Blood specimen 07/09/2017 2:10 AM 017 2:10 (specimen) EST AM EST Yuan Webber MD POINT OF CARE TEST ORDERABLE S Performing Organization Address City/State/ZIP [place] [address] POCT Glucose (07/09/2017 1:01 AM EST) P athologist Signature POC Glucose 173 65 - 199 [place] DAVIS mg/dL [facility] LABORATORY Comment: Supplemental ranges: <140 mg/dL before meals <180 mg/dL all other times of the day Specimen Anatomical Collection Method Collection Time Receive d Time (Source) Location / / Volume Laterality Blood specimen 07/09/2017 1:01 AM 017 1:01 (specimen) EST AM EST Yuan Webber MD POINT OF CARE TEST ORDERABLE S Performing Organization Address City/[facility]/ZIP [place] [address] Blood culture (07/09/2017 12:40 AM EST) Patholo gist Method Time Signature Blood Culture No growth [place] DAVIS at 5 days. [facility] LABORATORY Specimen Anatomical Collection Method Collection Time Receive d Time (Source) Location / / Volume Laterality Blood specimen STRUCTURE OF RIGHT 07/09/2017 12:40 3:58 (specimen) UPPER LIMB / AM EST AM EST Unknown Resulting Agency Comment Spec In Lab Yuan Webber MD MICROBIOLOGY - BLOOD ORDERAB LES Performing Organization Address City/State/ZIP [place] [address] Blood culture (07/09/2017 12:30 AM EST) Patholo gist Method Time Signature Blood Culture No growth K[place]ALINA DAVIS at 5 days. [facility] LABORATORY Specimen Anatomical Collection Method Collection Time Receive d Time (Source) Location / / Volume Laterality Blood specimen STRUCTURE OF LEFT 07/09/2017 12:30 06/25 3:59 (specimen) UPPER LIMB / AM EST AM EST Unknown Resulting Agency Comment Spec In Lab Yuan Webber MD MICROBIOLOGY - BLOOD ORDERAB LES Performing Organization Address City/State/ZIP [place] [address] (ABNORMAL) Urinalysis Microscopic Exam (07/09/2017 12:05 AM EST) Analysis Performed At Patho logist Time Signature RBC UA 32 (H) 0 - 3 /HPF [facility] LABORATORY WBC UA 5 (H) 0 - 3 /HPF [facility] LABOR[facility] Squam Epith UA <1 <=4 /HPF [facility] LABOR[facility] Hyaline Cast 17 (H) 0 - 2 /LPF [facility] LABORATORY Gran Cast UA 1 (H) <=0 /LPF [facility] LABORATORY Uric Ac Bianca Rare (A) None /HPF [facility] LABORATORY Specimen (Source) Anatomical Collection Method Collection Time Re ceived Time Location / / Volume Laterality Urine specimen 07/09/2017 12:05 7 obtained via AM EST 12:39 AM EST indwelling urinary catheter (specimen) Resulting Agency Comment Spec In Lab Yuan Webber MD URINE ORDERABLES Performing Organization Address City/[facility]/ZIP [place] [address] (ABNORMAL) Urinalysis with reflex Culture (07/09/2017 12:05 AM EST) Patholo gist Method Time Signature Glucose UA Negative Negative [facility] mg/dL [facility] LABOR[facility]ORY Protein UA 30 (A) Negative [facility] mg/dL [facility] LABOR[facility]ORY Bilirubin UA Negative Negative [facility] mg/dL [facility] LABOR[facility]ORY Comment: Clinical correlation required for positi ve Urine Bilirubin results as false positive may occur with some drugs and d rug related products. If a false positive is suspected a serum total bili yeager should be considered if clinically indicated. Urobilinogen UA Normal Normal mg/dL [facility] LABORATORY pH UA 5.0 5.0 - 8.0 [facility] LABORATORY Blood UA Moderate (A) Negative mg/dL [facility] LABORATORY Ketones UA Negative Negative mg/dL [facility] LABOR[facility] Nitrite UA Negative Negative [facility] LABORATORY Leukocytes UA Negative Negative [facility] LABORATORY Appearance UA Hazy (A) Clear [facility] LABORATORY Spec [place] UA 1.025 1.002 - 1.030 [facility] LABORATORY Color UA Yellow Yellow [facility] LABORATORY Culture Reflexed No [facility] LABORATORY Specimen (Source) Anatomical Collection Method Collection Time Re ceived Time Location / / Volume Laterality Urine specimen 07/09/2017 12:05 7 obtained via AM EST 12:39 AM EST indwelling urinary catheter (specimen) Resulting Agency Comment Spec In Lab Yuan Webber MD URINE ORDERABLES Performing Organization Address City/[facility]/ZIP Code Phon e Number [address] POCT Glucose (07/08/2017 11:01 PM EST) P athologist Signature POC Glucose 191 65 - 199 [facility] mg/dL [facility] LABORATORY Comment: Supplemental ranges: <140 mg/dL before meals <180 mg/dL all other times of the day Specimen Anatomical Collection Method Collection Time Receive d Time (Source) Location / / Volume Laterality Blood specimen 07/08/2017 11:01 7 (specimen) PM EST 11:01 PM EST Yuan Webber MD POINT OF CARE TEST ORDERABLE S Performing Organization Address City/[facility]/ZIP Code Phon e Number [address] POCT Glucose (07/08/2017 10:04 PM EST) P athologist Signature POC Glucose 198 65 - 199 [facility] mg/dL [facility] LABORATORY Comment: Supplemental ranges: <140 mg/dL before meals <180 mg/dL all other times of the day Specimen Anatomical Collection Method Collection Time Receive d Time (Source) Location / / Volume Laterality Blood specimen 07/08/2017 10:04 7 (specimen) PM EST 10:04 PM EST Yuan Webber MD POINT OF CARE TEST ORDERABLE S Performing Organization Address City/State/ZIP [place] [address] Prepare Albumin 5% in [...] Address City/State/ZIP [place] [address] POCT Glucose (07/08/2017 8:28 PM EST) athologist Signature POC Glucose 195 65 - 199 [facility] mg/dL [facility] LABORATORY Comment: Supplemental ranges: <140 mg/dL before meals <180 mg/dL all other times of the day Specimen Anatomical Collection Method Collection Time Receive d Time (Source) Location / / Volume Laterality Blood specimen 07/08/2017 8:28 PM 017 8:28 (specimen) EST PM EST Yuan Webber MD POINT OF CARE TEST ORDERABLE S Performing Organization Address City/[facility]/ZIP [place] [address] (ABNORMAL) POCT Glucose (07/08/2017 7:13 PM EST) athologist Signature POC Glucose 220 (H) 65 - 199 [facility] mg/dL [facility] LABORATORY Comment: Supplemental ranges: <140 mg/dL before meals <180 mg/dL all other times of the day Specimen Anatomical Collection Method Collection Time Receive d Time (Source) Location / / Volume Laterality Blood specimen 07/08/2017 7:13 PM 017 7:13 (specimen) EST PM EST Yuan Webber MD POINT OF CARE TEST ORDERABLE S Performing Organization Address City/State/ZIP [place] [address] POCT Glucose (07/08/2017 5:04 PM EST) P athologist Signature POC Glucose 147 65 - 199 [facility] mg/dL [facility] LABORATORY Comment: Supplemental ranges: <140 mg/dL before meals <180 mg/dL all other times of the day Specimen Anatomical Collection Method Collection Time Receive d Time (Source) Location / / Volume Laterality Blood specimen 07/08/2017 5:04 PM 017 5:04 (specimen) EST PM EST Yuan Webber MD POINT OF CARE TEST ORDERABLE S Performing Organization Address City/State/ZIP [place] [address] (ABNORMAL) BLOOD GAS 2 ARTERIAL (07/08/2017 4:13 PM EST) Analysis Performed At Patho logist Time Signature pH Art 7.38 7.35 - [facility] 7.45 [facility] LABORATORY pCO2 Art 36 35 - 45 [facility] LABORATORY pO2 Art 91 85 - 104 [facility] LABORATORY HCO3 Art 20.9 20.0 - [facility] 26.0 [facility] mmol/L [facility] LABOR[facility] BE Art -4.2 (L) -3.0 - 3.0 [facility] mmol/L [facility] LABORATORY Hgb Blood Gas 11.7 (L) 13.7 - [facility] 16.5 gm/dL [facility] LABORATORY O2HB Art 95.1 94.0 - [facility] 97.0 % [facility] LABORATORY COHB Art 0.6 % [facility] [...] [facility] LABORATORY FIO2 Art 40 % [facility] LABORATORY PF Ratio Art 228 [facility] LABORATORY Specimen Anatomical Collection Method Collection Time Receive d Time (Source) Location / / Volume Laterality Blood specimen 07/08/2017 4:13 PM 017 4:13 (specimen) EST PM EST Yuan Webber MD CHEMISTRY ORDERABLES Performing Organization Address City/[facility]/ZIP [facility] Phon e Number [address] POCT Glucose (07/08/2017 4:01 PM EST) athologist Signature POC Glucose 148 65 - 199 [facility] mg/dL [facility] LABORATORY Comment: Supplemental ranges: <140 mg/dL before meals <180 mg/dL all other times of the day Specimen Anatomical Collection Method Collection Time Receive d Time (Source) Location / / Volume Laterality Blood specimen 07/08/2017 4:01 PM 017 4:01 (specimen) EST PM EST Yuan Webber MD POINT OF CARE TEST ORDERABLE S Performing Organization Address City/[facility]/ZIP [facility] Phon e Number [address] POCT Glucose (07/08/2017 3:21 PM EST) P athologist Signature POC Glucose 118 65 - 199 [facility] mg/dL [facility] LABORATORY Comment: Supplemental ranges: <140 mg/dL before meals <180 mg/dL all other times of the day Specimen Anatomical Collection Method Collection Time Receive d Time (Source) Location / / Volume Laterality Blood specimen 07/08/2017 3:21 PM 017 3:21 (specimen) EST PM EST Yuan Webber MD POINT OF CARE TEST ORDERABLE S Performing Organization Address City/State/ZIP [place] [address] POCT Glucose (07/08/2017 2:01 PM EST) P athologist Signature POC Glucose 129 65 - 199 [place] RYAN mg/dL [facility] LABORATORY Comment: Supplemental ranges: <140 mg/dL before meals <180 mg/dL all other times of the day Specimen Anatomical Collection Method Collection Time Receive d Time (Source) Location / / Volume Laterality Blood specimen 07/08/2017 2:01 PM 017 2:01 (specimen) EST PM EST Yuan Webber MD POINT OF CARE TEST ORDERABLE S Performing Organization Address City/State/ZIP [place] [address] POCT Glucose (07/08/2017 11:53 AM EST) athologist Signature POC Glucose 156 65 - 199 [place] RYAN mg/dL [facility] LABORATORY Comment: Supplemental ranges: <140 mg/dL before meals <180 mg/dL all other times of the day Specimen Anatomical Collection Method Collection Time Receive d Time (Source) Location / / Volume Laterality Blood specimen 07/08/2017 11:53 7 (specimen) AM EST 11:53 AM EST Yuan Webber MD POINT OF CARE TEST ORDERABLE S Performing Organization Address City/State/ZIP [place] [address] POCT Glucose (07/08/2017 11:04 AM EST) athologist Signature POC Glucose 181 65 - 199 [place] ZHAORYAN mg/dL [facility] LABORATORY Comment: Supplemental ranges: <140 mg/dL before meals <180 mg/dL all other times of the day Specimen Anatomical Collection Method Collection Time Receive d Time (Source) Location / / Volume Laterality Blood specimen 07/08/2017 11:04 7 (specimen) AM EST 11:04 AM EST Yuan Webber MD POINT OF CARE TEST ORDERABLE S Performing Organization Address City/[facility]/ZIP [place] [address] (ABNORMAL) POCT Glucose (07/08/2017 9:24 AM EST) athologist Signature POC Glucose 203 (H) 65 - 199 [facility] mg/dL [facility] LABORATORY Comment: Supplemental ranges: <140 mg/dL before meals <180 mg/dL all other times of the day Specimen Anatomical Collection Method Collection Time Receive d Time (Source) Location / / Volume Laterality Blood specimen 07/08/2017 9:24 AM 017 9:24 (specimen) EST AM EST Yuan Webber MD POINT OF CARE TEST ORDERABLE S Performing Organization Address [facility] [place] [address] APTT (07/08/2017 8:40 AM EST) athologist [facility] PTT 33 25 - 35 sec [facility] LABORATORY Comment: The recommended therapeutic range for fu ll dose, unfractionated heparin at [facility] is 80 ? 114 seconds. The use [...] Webber MD HEMATOLOGY ORDERABLES Performing Organization Address City/[facility]/ZIP [place] [address] (ABNORMAL) Prothrombin Time (07/08/2017 8:40 AM EST) athologist [facility] PT 15.6 (H) 11.8 - 14.0 [facility] LABORATORY INR 1.3 (H) 0.9 - [...] Address City/State/ZIP [place] [address] (ABNORMAL) POCT Glucose (07/08/2017 7:38 AM EST) athologist Signature POC Glucose 232 (H) 65 - 199 [facility] mg/dL [facility] LABORATORY Comment: Supplemental ranges: <140 mg/dL before meals <180 mg/dL all other times of the day Specimen Anatomical Collection Method Collection Time Receive d Time (Source) Location / / Volume Laterality Blood specimen 07/08/2017 7:38 AM 017 7:38 (specimen) EST AM EST Yuan Webber MD POINT OF CARE TEST ORDERABLE S Performing Organization Address City/[facility]/ZIP [place] [address] (ABNORMAL) POCT Glucose (07/08/2017 7:07 AM EST) athologist Signature POC Glucose 234 (H) 65 - 199 [facility] mg/dL [facility] LABORATORY Comment: Supplemental ranges: <140 mg/dL before meals <180 mg/dL all other times of the day Specimen Anatomical Collection Method Collection Time Receive d Time (Source) Location / / Volume Laterality Blood specimen 07/08/2017 7:07 AM 017 7:07 (specimen) EST AM EST Yuan Webber MD POINT OF CARE TEST ORDERABLE S Performing Organization Address City/State/ZIP [place] [address] (ABNORMAL) POCT Glucose (07/08/2017 6:04 AM EST) athologist Signature POC Glucose 225 (H) 65 - 199 [facility] mg/dL [facility] LABORATORY Comment: Supplemental ranges: <140 mg/dL before meals <180 mg/dL all other times of the day Specimen Anatomical Collection Method Collection Time Receive d Time (Source) Location / / Volume Laterality Blood specimen 07/08/2017 6:04 AM 017 6:04 (specimen) EST AM EST Yuan Webber MD POINT OF CARE TEST ORDERABLE S Performing Organization Address City/State/ZIP [place] [address] (ABNORMAL) POCT Glucose (07/08/2017 5:31 AM EST) athologist Signature POC Glucose 216 (H) 65 - 199 [facility] mg/dL [facility] LABORATORY Comment: Supplemental ranges: <140 mg/dL before meals <180 mg/dL all other times of the day Specimen Anatomical Collection Method Collection Time Receive d Time (Source) Location / / Volume Laterality Blood specimen 07/08/2017 5:31 AM 017 5:31 (specimen) EST AM EST Yuan Webber MD POINT OF CARE TEST ORDERABLE S Performing Organization Address City/[facility]/ZIP [place] [address] (ABNORMAL) POCT Glucose (07/08/2017 4:52 AM EST) athologist Signature POC Glucose 257 (H) 65 - 199 [facility] mg/dL [facility] LABORATORY Comment: Supplemental ranges: <140 mg/dL before meals <180 mg/dL all other times of the day Specimen Anatomical Collection Method Collection Time Receive d Time (Source) Location / / Volume Laterality Blood specimen 07/08/2017 4:52 AM 017 4:52 (specimen) EST AM EST Daphne Shahid MD POINT OF CARE TEST ORDERABLE S Performing Organization Address City/State/ZIP [place] [address] (ABNORMAL) BLOOD GAS 2 ARTERIAL (07/08/2017 4:04 AM EST) Analysis Performed At Patho logist Time Signature pH Art 7.30 (L) 7.35 - [facility] 7.45 [facility] LABORATORY pCO2 Art 41 35 - 45 [facility] mmHg [facility] LABORATORY pO2 Art 83 (L) 85 - 104 [facility] mmHg [facility] LABORATORY HCO3 Art 19.6 (L) 20.0 - [facility] 26.0 [facility] mmol/L [facility] LABORATORY BE Art -6.8 (L) -3.0 - 3.0 [facility] mmol/L [facility] LABORATORY Hgb Blood Gas 12.2 (L) 13.7 - [facility] 16.5 gm/dL [facility] O2HB Art 93.5 (L) 94.0 - [facility] 97.0 % [facility] COHB Art 0.4 % [facility] LABORATORY [...] [facility] Comment: Noted by fretted instruments inspector. FIO2 Art 40 % [facility] LABORATORY PF Ratio Art 208 [facility] LABORATORY Specimen Anatomical Collection Method Collection Time Receive d Time (Source) Location / / Volume Laterality Blood specimen 07/08/2017 4:04 AM 017 4:04 (specimen) EST AM EST Daphne Shahid MD CHEMISTRY ORDERABLES Performing Organization Address City/[facility]/ZIP Code Phon e Number [address] Scan, Peripheral Blood (07/08/2017 [...] Webber MD HEMATOLOGY ORDERABLES Performing Organization Address City/[facility]/ZIP Code Phon e Number [address] (ABNORMAL) Differential, Automated (07/08/2017 4:00 AM EST) Patholo gist Method Time Signature Neutrophils % 85.4 % [facility] LABORATORY Neutr Abs (ANC) 16.07 (H) 1.70 - [facility] 6.10 [facility] x10(3)/[facility] LABORATORY Lymphocytes % 3.5 % [facility] LABORATORY Lymphocytes Abs 0.6 (L) 0.9 - 3.2 [facility] x10(3)/[facility] LABORATORY Monocytes % 10.4 % [facility] LABORATORY Monocyte Abs 2.0 (H) 0.3 - 0.9 [facility] x10(3)/[facility] LABORATORY Eosinophils % 0.0 % [facility] LABORATORY Eosinophils Abs 0.0 0.0 - 0.4 [facility] x10(3)/[facility] LABORATORY Basophils % 0.1 % [facility] LABORATORY Basophils Abs 0.0 0.0 - 0.1 [facility] x10(3)/[facility] LABORATORY Immature Gran % [...] Gran Abs 0.12 (H) 0.00 - 0.04 x10(3)/[facility] LABORATORY Specimen Anatomical Collection Method Collection Time Receive d Time (Source) Location / / Volume Laterality Blood specimen 07/08/2017 4:00 AM 017 4:09 (specimen) EST AM EST Resulting Agency Comment Spec In Lab Yuan Webber MD HEMATOLOGY ORDERABLES Performing Organization Address City/State/ZIP Code Phon e Number [place] [id number]OS[address] LAB[address] (ABNORMAL) Hemogram (07/08/2017 4:00 AM EST) Analysis Performed At Patho logist Time Signature WBC 18.8 (H) 4.0 - 9.5 [facility] x10(3)/[facility] LABORATORY RBC 4.00 (L) 4.58 - [facility] R[facility] 5.54 [facility] x10(6)/[facility] LABORATORY Hemoglobin 11.9 (L) 13.7 - [facility] 16.5 gm/dL [facility] LABORATORY Hematocrit 35.9 (L) 40.5 - [facility] 48.5 % [facility] LABORATORY MCV 89.8 82.9 - [facility] 93.1 [facility] LABORATORY MCH 29.8 27.5 - [place] RY[place] 32.1 pg [facility] LABORATORY MCHC 33.1 32.0 - [facility] 35.7 gm/dL [facility] LABORATORY Platelets 232 145 - 357 [facility] x10(3)/[facility] RDWSD 47.6 (H) 36.0 - [place] RYAN 45.0 [facility] RDWCV 14.5 (H) 11.4 - [facility] 13.8 % [facility] LABORATORY MPV 9.5 7.6 - 12.9 [facility] LABORATORY nRBC % Auto 0.0 % [facility] LABORATORY nRBC Abs Auto 0.000 0.000 - [facility] [facility] 0.000 [facility] x10(3)/[facility] LABORATORY Specimen Anatomical Collection Method Collection Time Receive d Time (Source) Location / / Volume Laterality Blood specimen 07/08/2017 4:00 AM 017 4:09 (specimen) EST AM EST Resulting Agency Comment Spec In Lab Yuan Webber MD HEMATOLOGY ORDERABLES Performing Organization Address City/State/ZIP [place] [address] (ABNORMAL) Electrolytes panel (07/08/2017 4:00 AM EST) athologist Signature Sodium 139 135 - 145 [facility] mmol/L [facility] LABORATORY Potassium 4.7 3.5 - 5.0 [facility] mmol/L [facility] LABORATORY Comment: result rechecked-JLK Please note: [...] Anion Gap 14 5 - 15 mmol/L [facility] LABORATORY Specimen Anatomical Collection Method Collection Time Receive d Time (Source) Location / / Volume Laterality Blood specimen 07/08/2017 4:00 AM 017 4:10 (specimen) EST AM EST Resulting Agency Comment Spec In Lab Yuan Webber MD CHEMISTRY ORDERABLES Performing Organization Address City/[facility]/ZIP [place] [address] (ABNORMAL) Cardiac Enzymes (LEB/CGP) (07/08/2017 4:00 AM EST) P athologist Signature Troponin-T 1.88 (H) 0.00 [facility] 0.[facility] ng/mL [facility] LABORATORY Comment: The 99th percentile for Troponin T is le ss than 0.01 ng/mL, any detectable cTnT concentration using this assay should be considered elevated. According to the third universal definit ion of myocardial infarction the following criteria with a clinical prese ntation consistent with acute myocardial ischemia meets the diagnosis for a myocardial infarction (ME). Detection of a rise and/or fall of [...] additional sample may be indicated. Reference: Third [place] Definition of Myocardial Infarction. Journal of the [place] College [employer] 2012;60:1581-98 CK, Total 413 (H) 0 - 200 unit/L [facility] LABORATORY Comment: result rechecked-K Specimen Anatomical Collection Method Collection Time Receive d Time (Source) Location / / Volume Laterality Blood specimen 07/08/2017 4:00 AM 017 4:09 (specimen) EST AM EST Resulting Agency Comment Spec In Lab Yuan Webber MD CHEMISTRY ORDERABLES Performing Organization Address City/State/ZIP [place] [address] (ABNORMAL) Glucose, fasting (07/08/2017 4:00 AM EST) athologist Signature Glucose 287 (H) 65 - 99 [facility] Fasting mg/dL [facility] LABORATORY Comment: ?Fasting* Glucose Interpretive C [...] of Diabetes Mellitus, Position Statement from the [place] [employer]. ??Diabete s Care, Volume 33, Supplement 1, Jul 2009 Specimen Anatomical Collection Method Collection Time Receive d Time (Source) Location / / Volume Laterality Blood specimen 07/08/2017 4:00 AM 017 4:09 (specimen) EST AM EST Resulting Agency Comment Spec In Lab Yuan Webber MD CHEMISTRY ORDERABLES Performing Organization Address [facility] Phon e Number [address] (ABNORMAL) Creatinine (07/08/2017 4:00 AM EST) Analysis Performed At Patho logist Time Signature Creatinine 1.55 (H) 0.80 - [facility] 1.50 mg/dL [facility] LABORATORY Estimated GFR 44 (L) >=60 [facility] LABORATORY Comment: The reported eGFR should be multiplied b y 1.2 for patients. The MDRD is not an appropriate measure o f renal function for patients with body mass extremes or in patients with acute kidney failure. http://[employer]oneworld/DHnkdep http://Moj[employer]/DHMCnkf Specimen Anatomical Collection Method Collection Time Receive d Time (Source) Location / / Volume Laterality Blood specimen 07/08/2017 4:00 AM 017 4:09 (specimen) EST AM EST Resulting Agency Comment Spec In Lab Yuan Webber MD CHEMISTRY ORDERABLES Performing Organization Address [facility] Phon e Number [address] BUN (07/08/2017 4:00 AM EST) P athologist Signature BUN 16 10 - 20 [facility] mg[facility]dL [facility] LABORATORY Specimen Anatomical Collection Method Collection Time Receive d Time (Source) Location / / Volume Laterality Blood specimen 07/08/2017 4:00 AM 017 4:09 (specimen) EST AM EST Resulting Agency Comment Spec In Lab Yuan Webber MD CHEMISTRY ORDERABLES Performing Organization Address City/State/ZIP [place] [address] (ABNORMAL) POCT Glucose (07/08/2017 3:00 AM EST) athologist Signature POC Glucose 273 (H) 65 - 199 [facility] mg/dL [facility] LABORATORY Comment: Supplemental ranges: <140 mg/dL before meals <180 mg/dL all other times of the day Specimen Anatomical Collection Method Collection Time Receive d Time (Source) Location / / Volume Laterality Blood specimen 07/08/2017 3:00 AM 017 3:00 (specimen) EST AM EST Daphne Shahid MD POINT OF CARE TEST ORDERABLE S Performing Organization Address City/[facility]/ZIP [place] [address] (ABNORMAL) POCT Glucose (07/08/2017 1:57 AM EST) athologist Signature POC Glucose 288 (H) 65 - 199 [facility] mg/dL [facility] LABORATORY Comment: Supplemental ranges: <140 mg/dL before meals <180 mg/dL all other times of the day Specimen Anatomical Collection Method Collection Time Receive d Time (Source) Location / / Volume Laterality Blood specimen 07/08/2017 1:57 AM 017 1:57 (specimen) EST AM EST Daphne Shahid MD POINT OF CARE TEST ORDERABLE S Performing Organization Address City/State/ZIP [place] [address] (ABNORMAL) POCT Glucose (07/08/2017 1:01 AM EST) athologist Signature POC Glucose 315 (H) 65 - 199 [place] [facility] mg/dL [facility] LABORATORY Comment: Supplemental ranges: <140 mg/dL before meals <180 mg/dL all other times of the day Specimen Anatomical Collection Method Collection Time Receive d Time (Source) Location / / Volume Laterality Blood specimen 07/08/2017 1:01 AM 017 1:01 (specimen) EST AM EST Daphne Shahid MD POINT OF CARE TEST ORDERABLE S Performing Organization Address City/State/ZIP [place] [address] (ABNORMAL) BLOOD GAS 2 ARTERIAL (07/08/2017 12:09 AM EST) athologist Signature pH Art 7.26 7.35 - [facility] (Critical) 7.45 [facility] LABORATORY Comment: Noted by fretted instruments inspector. pCO2 Art 41 35 - 45 mmHg [facility] LABORATORY pO2 Art 96 85 - 104 mmHg [facility] LABORATORY HCO3 Art 17.7 (L) 20.0 - 26.0 mmol/L [facility] LABORATORY BE Art -9.4 (L) -3.0 - 3.0 mmol/L [facility] LABORATORY Hgb Blood Gas 12.4 (L) 13.7 - 16.5 gm/dL [facility] O2HB Art 94.7 94.0 - 97.0 % [facility] COHB Art 0.2 % [facility] Comment: Noted by fretted instruments inspector. FIO2 Art 40 % [facility] PF Ratio Art 240 [facility] LABOR[facility]ORY Specimen Anatomical Collection Method Collection Time Receive d Time (Source) Location / / Volume Laterality Blood specimen Arterial Draw / 07/08/2017 12:09 2016 5:31 (specimen) Unknown AM EST AM EST Resulting Agency Comment Spec In Lab Samy Maldonado MD CHEMISTRY ORDERABLES Performing Organization Address City/State/ZIP [place] [address] (ABNORMAL) POCT Glucose (07/07/2017 10:56 PM EST) P athologist Signature POC Glucose 292 (H) 65 - 199 [facility] mg/dL [facility] LABORATORY Comment: Supplemental ranges: <140 mg/dL before meals <180 mg/dL all other times of the day Specimen Anatomical Collection Method Collection Time Receive d Time (Source) Location / / Volume Laterality Blood specimen 07/07/2017 10:56 7 (specimen) PM EST 10:56 PM EST Daphne Shahid MD POINT OF CARE TEST ORDERABLE S Performing Organization Address City/[facility]/ZIP [place] [address] (ABNORMAL) BLOOD GAS 2 ARTERIAL (07/07/2017 10:04 PM EST) P athologist Signature pH Art 7.22 7.35 - [facility] (Critical) 7.45 [facility] LABORATORY Comment: Noted by fretted instruments inspector. pCO2 Art 42 35 - 45 mmHg [facility] pO2 Art 94 85 - 104 mmHg [facility] HCO3 Art 16.9 (L) 20.0 - 26.0 mmol/L [facility] LABOR[facility] BE Art -10.7 (L) -3.0 - 3.0 mmol/L [facility] Hgb Blood Gas 13.0 (L) 13.7 - 16.5 gm/dL [facility] O2HB Art 93.8 (L) 94.0 - 97.0 % [facility] COHB Art 0.7 % [facility] Comment: Nonsmokers: 0.5-1.5% COHB Smokers: Variable, but usually less than 10% Toxic: 20-30% COHB Lethal: Greater than 60% COHB METHB Art 0.7 <=1.5 % [facility] Na Whole Blood 140 135 - 145 mmol/L [facility] K Whole Blood 3.3 (L) [...] [facility] Comment: Noted by fretted instruments inspector. FIO2 Art 40 % [facility] PF Ratio Art 235 [facility] Specimen Anatomical Collection Method Collection Time Receive d Time (Source) Location / / Volume Laterality Blood specimen 07/07/2017 10:04 7 (specimen) PM EST 10:04 PM EST Daphne Shahid MD CHEMISTRY ORDERABLES Performing Organization Address City/State/ZIP [place] [address] (ABNORMAL) Hemoglobin (07/07/2017 10:00 PM EST) athologist Signature Hemoglobin 12.8 (L) 13.7 - [facility] 16.5 gm/dL [facility] LABORATORY Specimen Anatomical Collection Method Collection Time Receive d Time (Source) Location / / Volume Laterality Blood specimen 07/07/2017 10:00 7 (specimen) PM EST 10:13 PM EST Resulting Agency Comment Spec In Lab Yuan Webber MD HEMATOLOGY ORDERABLES Performing Organization Address City/State/ZIP [place] [address] (ABNORMAL) Potassium (07/07/2017 10:00 PM EST) athologist Signature Potassium 3.4 (L) 3.5 - 5.0 [facility] mmol/L [facility] Comment: Please note: ??Patients with [...] Webber MD CHEMISTRY ORDERABLES Performing Organization Address City/[facility]/ZIP Code Phon e Number [address] (ABNORMAL) POCT Glucose (07/07/2017 8:49 PM EST) athologist Signature POC Glucose 241 (H) 65 - 199 [facility] mg/dL [facility]OR[facility]ORY Comment: Supplemental ranges: <140 mg/dL before meals <180 mg/dL all other times of the day Specimen Anatomical Collection Method Collection Time Receive d Time (Source) Location / / Volume Laterality Blood specimen 07/07/2017 8:49 PM 017 8:49 (specimen) EST PM EST Daphne Shahid MD POINT OF CARE TEST ORDERABLE S Performing Organization Address City/[facility]/ZIP [place] [address] Prepare Albumin 5% in 250 mL (07/07/2017 8:03 PM EST) P athologist Signature Dispensed? Yes [facility]OR[facility] Specimen Anatomical Collection Method Collection Time Receive d Time (Source) Location / / Volume Laterality Blood specimen No Charge / 07/07/2017 8:03 PM 017 8:04 (specimen) Unknown EST PM EST Resulting Agency Comment Spec In Lab Michael Drake PA BLOOD BANK ORDERABLES Performing Organization Address [facility]/ZIP Code Phon e Number [address] EKG 12 Lead (07/07/2017 7:17 PM EST) Component Value Ref Range Test Analysis Performed Pathologis t Method Time At Signature Ventricular rate 75 BPM MUSE SYSTEM Atrial Rate 75 BPM MUSE SYSTEM P-R Interval 168 ms MUSE SYSTEM QRS Duration 104 ms MUSE SYSTEM Q-T Interval 462 ms MUSE SYSTEM QTC Calculated 515 ms MUSE SYSTEM (Bezet) Calculated P [place] 52 degrees MUSE SYSTEM Calculated R [place] -40 degrees MUSE SYSTEM Calculated T [place] 39 degrees MUSE SYSTEM INTERPRETATION Normal sinus [...] Webber MD ECG ORDERABLES Performing Organization Address City/[facility]/ZIP Code Phon e Number MUSE SYSTEM XR [...] athologist Signature pH Art 7.21 7.35 - [facility] (Critical) 7.45 [facility] LABORATORY Comment: Noted by fretted instruments inspector. pCO2 Art 50 (H) 35 - 45 mmHg [facility] pO2 Art 238 (H) 85 - 104 mmHg [facility] HCO3 Art 19.8 (L) 20.0 - 26.0 mmol/L [facility] LABORAT[facility] BE Art -8.1 (L) -3.0 - 3.0 mmol/L [facility] Hgb Blood Gas 12.8 (L) 13.7 - 16.5 gm/dL [facility] O2HB Art 97.5 (H) 94.0 - 97.0 % [facility] COHB Art 0.5 % [facility] Comment: Nonsmokers: 0.5-1.5% COHB Smokers: Variable, but usually less than 10% Toxic: 20-30% COHB Lethal: Greater than 60% COHB METHB Art 0.7 <=1.5 % [facility] Na Whole Blood 140 135 - 145 mmol/L [facility] K Whole Blood 3.0 (Critical) 3.5 - 5.0 mmol/L [facility] LABOR[facility]ORY Comment: Noted by fretted instruments inspector. Please note: Patients with WBC >100,000 may [...] [facility] Comment: Noted by fretted instruments inspector. FIO2 Art 100 % [facility] PF Ratio Art 238 [facility] Specimen Anatomical Collection Method Collection Time Receive d Time (Source) Location / / Volume Laterality Blood specimen 07/07/2017 6:57 PM 017 6:57 (specimen) EST PM EST Daphne Shahid MD CHEMISTRY ORDERABLES Performing Organization Address City/State/ZIP [place] [address] (ABNORMAL) BLOOD GAS 2 ARTERIAL (07/07/2017 5:31 PM EST) athologist Signature pH Art 7.29 7.35 - [facility] (Critical) 7.45 [facility] Comment: Noted by fretted instruments inspector. pCO2 Art 48 (H) 35 - 45 mmHg [facility] pO2 Art 137 (H) 85 - 104 mmHg [facility] HCO3 Art 22.4 20.0 - 26.0 mmol/L [facility] BE Art -4.3 (L) -3.0 - 3.0 mmol/L [facility] Hgb Blood Gas 10.0 (L) 13.7 - 16.5 gm/dL [facility] O2HB Art 97.3 (H) 94.0 - 97.0 % [facility] COHB Art 0.3 % [facility] Comment: Nonsmokers: 0.5-1.5% COHB Smokers: Variable, but usually less than 10% Toxic: 20-30% COHB Lethal: Greater than 60% COHB METHB Art 0.3 <=1.5 % [facility] Na Whole Blood 132 (L) 135 - 145 mmol/L [facility] [...] WB 3.1 (H) 0.5 - 2.2 mmol/L [facility] Specimen Anatomical Collection Method Collection Time Receive d Time (Source) Location / / Volume Laterality Blood specimen 07/07/2017 5:31 PM 017 5:31 (specimen) EST PM EST Daphne Shahid MD CHEMISTRY ORDERABLES Performing Organization Address City/[facility]/ZIP [place] [address] Fibrinogen (07/07/2017 5:30 PM EST) athologist Signature Fibrinogen 224 180 - 510 [facility] mg/dL [facility]OR[facility]ORY Comment: Called by: JEET, Read [...] Perez MD HEMATOLOGY ORDERABLES Performing Organization Address City/[facility]/ZIP Code Phon e Number [address] APTT (07/07/2017 5:30 PM EST) athologist Signature PTT 30 25 - 35 sec [facility] Comment: The recommended therapeutic range for fu ll dose, unfractionated heparin at [facility] is 80 ? 114 seconds. The use [...] Perez MD HEMATOLOGY ORDERABLES Performing Organization Address City/[facility]/ZIP [facility] [place] [address] (ABNORMAL) Prothrombin Time (07/07/2017 5:30 PM EST) athologist Signature PT 19.0 (H) 11.8 - 14.0 [facility] [...] Organization Address City/State/ZIP [place] [address] (ABNORMAL) Hemogram (07/07/2017 5:30 PM EST) athologist Signature WBC 19.6 (H) 4.0 - 9.5 [facility] x10(3)/[facility] LABORATORY RBC 3.08 (L) 4.58 - [facility] 5.54 [facility] x10(6)/[facility] LABORATORY Hemoglobin 9.2 (L) 13.7 - [facility] 16.5 gm/dL [facility] LABORATORY Hematocrit 28.0 (L) 40.5 - [facility] 48.5 % [facility] LABORATORY Comment: This result has been called to MONICA WEINSTEIN SON by DONALD GROSSMAN on 07 07 2017 at 1759, and has been read back. MCV 90.9 82.9 - 93.1 fL [facility] MCH 29.9 27.5 - 32.1 pg [facility] MCHC 32.9 32.0 - 35.7 gm/dL [facility] Platelets 155 145 - 357 x10(3)/[facility] LABORATORY RDWSD 46.5 (H) 36.0 - 45.0 fL [facility] RDWCV 14.1 (H) 11.4 - 13.8 % [facility] MPV 9.5 7.6 - 12.9 fL [facility] LAB[facility]ORY nRBC % Auto 0.0 % [facility] LABORATORY nRBC Abs Auto 0.000 0.000 - 0.000 x10(3)/[facility] LABORATORY Specimen Anatomical Collection Method Collection Time Receive d Time (Source) Location / / Volume Laterality Blood specimen 07/07/2017 5:30 PM 017 5:34 (specimen) EST PM EST Resulting Agency Comment Spec In Lab Yifan Perez MD HEMATOLOGY ORDERABLES Performing Organization Address [facility] Phon e Number [address] Prepare Platelets, Apheresis (07/07/2017 5:00 PM EST) P athologist Signature Dispensed? Yes [facility] Specimen Anatomical Collection Method Collection Time Receive d Time (Source) Location / / Volume Laterality Blood specimen 07/07/2017 5:00 PM 017 4:58 (specimen) EST PM EST Daphne Shahid MD BLOOD BANK ORDERABLES Performing Organization Address City/[facility] Phon e Number [address] Platelet count (07/07/2017 4:55 PM EST) P athologist Signature Platelets 177 145 - 357 [facility] x10(3)/[facility] LABORATORY Plat Immature 1.5 0.0 - 7.4 [facility] LABORATORY Comment: Limitation of the Immature Platelet Frac tion (IPF)-May be less reliable when the platelet count is less than 21t693/u L due to statistical imprecision. The IPF [...] in a decreased state of production. References: [employer] The Clinical Value of the Immature Platelet Fraction (IPF) in Cell Recovery Document Number [id number] 12/2010 [employer] The Role of the Imm ature Platelet Fraction (IPF) in the Differential Diagnosis of Thrombocytopen ia, Document [id number] V012/04/13 Specimen Anatomical Collection Method Collection Time Receive d Time (Source) Location / / Volume Laterality Blood specimen 07/07/2017 4:55 PM 017 5:13 (specimen) EST PM EST Resulting Agency Comment Spec In Lab Daphne Shahid MD HEMATOLOGY ORDERABLES Performing Organization Address City/[facility]/ZIP [place] [address] (ABNORMAL) Hemoglobin and Hematocrit, blood (07/07/2017 4:55 PM EST) P athologist Signature Hemoglobin 9.1 (L) 13.7 - 16.5 [facility] gm/dL [facility] Comment: This result has been [...] Shahid MD HEMATOLOGY ORDERABLES Performing Organization Address City/[facility]/ZIP Code Phon e Number [facility] [place] [address] (ABNORMAL) BLOOD GAS 2 ARTERIAL (07/07/2017 4:38 PM EST) Analysis Performed At Patho logist Time Signature pH Art 7.37 7.35 - [facility] 7.45 [facility] LABORATORY pCO2 Art 44 35 - 45 [facility] mmHg [facility] LABORATORY pO2 Art 322 (H) 85 - 104 [facility] mmHg [facility] LABORATORY HCO3 Art 24.9 20.0 - [facility] 26.0 [facility] mmol/L [facility] LABOR[facility] BE Art -0.4 -3.0 - 3.0 [facility] mmol/L [facility] LABORATORY Hgb Blood Gas 10.1 (L) 13.7 - [facility] 16.5 gm/dL [facility] O2HB Art 98.7 (H) 94.0 - [facility] 97.0 % [facility]ORATORY COHB Art 0.1 % [facility] Comment: Nonsmokers: 0.5-1.5% COHB Smokers: Variable, but usually less than 10% Toxic: 20-30% COHB Lethal: Greater than 60% COHB METHB Art 0.3 <=1.5 % [facility] Na Whole Blood 130 (L) 135 - 145 mmol/L [facility] K Whole Blood 5.7 (H) 3.5 - 5.0 mmol/L [facility] Comment: Please note: Patients with WBC >100,000 may have falsely elevated Potassium levels. Contact the Clinical Chemistry L aboratory if there are any questions. ICa Whole Blood 0.89 (Critical) 1.15 - 1.33 mmol/L [facility] Comment: Noted by fretted instruments inspector. Note: ??Total bilirubin higher than 20 m [...] Organization Address City/State/ZIP [place] [address] (ABNORMAL) BLOOD GAS 2 VENOUS (07/07/2017 4:06 PM EST) Analysis Performed At Patho [facility] Time Signature pH Cody 7.31 (L) 7.32 - [facility] 7.42 [facility] LABORATORY pCO2 Cody 47 41 - 51 [facility] LABORATORY pO2 Cody 53 (H) 25 - 40 [facility] LABORATORY HCO3 Cody 22.7 mmol/L [facility] BE Cody -3.7 mmol/L [facility] Hgb Blood Gas 10.2 (L) 13.7 - [facility] 16.5 gm/dL [facility]ORY O2HB Cody 81.0 % [facility] COHB Cody 1.0 % [facility] Comment: Nonsmokers: 0.5-1.5% COHB Smokers: Variable, but usually less than 10% Toxic: 20-30% COHB Lethal: Greater than 60% COHB METHB Ocdy 0.3 <=1.5 % [facility] Na Whole Blood 132 (L) 135 - 145 mmol/L [facility] K Whole Blood 5.3 (H) 3.5 - 5.0 mmol/L [facility] Comment: Please note: Patients with WBC >100,000 may have falsely elevated Potassium levels. Contact the Clinical Chemistry L aboratory if there are any questions. ICa Whole Blood 0.90 (Critical) 1.15 - 1.33 mmol/L [facility] Comment: Noted by fretted instruments inspector. Note: ??Total bilirubin higher than 20 m g/dL may lead to falsely low ionized calcium. CL Whole Blood 100 98 - 107 mmol/L [facility] Gluc Whole Bld 231 (H) 65 - 199 mg/dL [facility] Comment: Diabetes: >=200 mg/dL plus symp toms Lactate WB 1.1 0.5 - 2.2 mmol/L [facility] BGas Source Venous [facility] LABORATORY Specimen Anatomical Collection Method Collection Time Receive d Time (Source) Location / / Volume Laterality Blood specimen 07/07/2017 4:06 PM 017 4:06 (specimen) EST PM EST Daphne Shahid MD CHEMISTRY ORDERABLES Performing Organization Address City/State/ZIP [place] [address] (ABNORMAL) BLOOD GAS 2 ARTERIAL (07/07/2017 4:05 PM EST) Analysis Performed At Patho logist Time Signature pH Art 7.36 7.35 - [facility] 7.45 [facility] LABORATORY pCO2 Art 40 35 - 45 [facility] LABORATORY pO2 Art 282 (H) 85 - 104 [facility] LABORATORY HCO3 Art 22.1 20.0 - [facility] 26.0 [facility] mmol/[facility] LABORATORY BE Art -3.4 (L) -3.0 - 3.0 [facility] mmol/L [facility] LABORATORY Hgb Blood Gas 10.2 (L) 13.7 - [facility] 16.5 gm/dL [facility] LABORATORY O2HB Art 98.4 (H) 94.0 - [facility] 97.0 % [facility] LABORATORY COHB Art 0.3 % [facility] Comment: Nonsmokers: 0.5-1.5% COHB Smokers: Variable, but usually less than 10% Toxic: 20-30% COHB Lethal: Greater than 60% COHB METHB Art 0.3 <=1.5 % [facility] LABORATORY Na Whole Blood 131 (L) 135 - 145 mmol/L [facility] K Whole Blood 5.4 (H) 3.5 - 5.0 mmol/L [facility] LAB[facility] Comment: Please note: Patients with WBC >100,000 may have falsely elevated Potassium levels. Contact the Clinical Chemistry L aboratory if there are any questions. ICa Whole Blood 0.86 (Critical) 1.15 - 1.33 mmol/L [facility] Comment: Noted by fretted instruments inspector. Note: ??Total bilirubin higher than 20 m [...] Organization Address City/State/ZIP [place] [address] (ABNORMAL) BLOOD GAS 2 ARTERIAL (07/07/2017 2:29 PM EST) Analysis Performed At Patho logist Time Signature pH Art 7.43 7.35 - [facility] 7.45 [facility] LABORATORY pCO2 Art 36 35 - 45 [facility] LABORATORY pO2 Art 221 (H) 85 - 104 [facility] LABORATORY HCO3 Art 23.2 20.0 - [facility] 26.0 [facility] mmol/L [facility] LABORAT[facility] BE Art -1.2 -3.0 - 3.0 [facility] mmol/L [facility] LABORATORY Hgb Blood Gas 13.9 13.7 - [facility] 16.5 gm/dL [facility] LABORATORY O2HB Art 97.8 (H) 94.0 - [facility] 97.0 % [facility] LABOR[facility]ORY COHB Art 1.1 % [facility] [...] Shahid MD CHEMISTRY ORDERABLES Performing Organization Address City/[facility]/ZIP [place] [address] Prepare Coag Factors (Non-Hemophilia) (07/07/2017 1:25 PM EST) P athologist Signature Dispensed? Yes [facility] Specimen Anatomical Collection Method Collection Time Receive d Time (Source) Location / / Volume Laterality Blood specimen 07/07/2017 1:25 PM 017 1:21 (specimen) EST PM EST Daphne Shahid MD BLOOD BANK ORDERABLES Performing Organization Address City/[facility]/ZIP [place] [address] Prepare RBC (07/07/2017 1:10 PM EST) P athologist Signature Dispensed? Yes [facility] Specimen Anatomical Collection Method Collection Time Receive d Time (Source) Location / / Volume Laterality Blood specimen 07/07/2017 1:10 PM 017 1:05 (specimen) EST PM EST Daphne Shahid MD BLOOD BANK ORDERABLES Performing Organization Address City/State/ZIP [place] [address] POCT Glucose (07/07/2017 11:56 AM EST) P athologist Signature POC Glucose 188 65 - 199 [facility] mg/dL [facility]ORY Comment: Supplemental ranges: <140 mg/dL before meals <180 mg/dL all other times of the day Specimen Anatomical Collection Method Collection Time Receive d Time (Source) Location / / Volume Laterality Blood specimen 07/07/2017 11:56 7 (specimen) AM EST 11:56 AM EST Daphne Shahid MD POINT OF CARE TEST ORDERABLE S Performing Organization Address City/State/ZIP Code Phon e Number [address] POCT Glucose (07/07/2017 11:05 AM EST) athologist Signature POC Glucose 168 65 - 199 [facility]dL [facility]ORY Comment: Supplemental ranges: <140 mg/dL before meals <180 mg/dL all other times of the day Specimen Anatomical Collection Method Collection Time Receive d Time (Source) Location / / Volume Laterality Blood specimen 07/07/2017 11:05 7 (specimen) AM EST 11:05 AM EST Daphne Shahid MD POINT OF CARE TEST ORDERABLE S Performing Organization Address City/State/ZIP Code Phon e Number [address] POCT Glucose (07/07/2017 10:02 AM EST) athologist Signature POC Glucose 191 65 - 199 [place] [facility] mg/dL [facility] Comment: Supplemental ranges: <140 mg/dL before meals <180 mg/dL all other times of the day Specimen Anatomical Collection Method Collection Time Receive d Time (Source) Location / / Volume Laterality Blood specimen 07/07/2017 10:02 7 (specimen) AM EST 10:02 AM EST Daphne Shahid MD POINT OF CARE TEST ORDERABLE S Performing Organization Address City/State/ZIP [place] [address] POCT Glucose (07/07/2017 7:53 AM EST) athologist Signature POC Glucose 178 65 - 199 [facility] mg/dL [facility]ORY Comment: Supplemental ranges: <140 mg/dL before meals <180 mg/dL all other times of the day Specimen Anatomical Collection Method Collection Time Receive d Time (Source) Location / / Volume Laterality Blood specimen 07/07/2017 7:53 AM 017 7:53 (specimen) EST AM EST Daphne Shahid MD POINT OF CARE TEST ORDERABLE S Performing Organization Address City/State/ZIP Code Phon e Number [address] POCT Glucose (07/07/2017 7:03 AM EST) athologist Signature POC Glucose 188 65 - 199 [facility] mg/dL [facility] Comment: Supplemental ranges: <140 mg/dL before meals <180 mg/dL all other times of the day Specimen Anatomical Collection Method Collection Time Receive d Time (Source) Location / / Volume Laterality Blood specimen 07/07/2017 7:03 AM 017 7:03 (specimen) EST AM EST Daphne Shahid MD POINT OF CARE TEST ORDERABLE S Performing Organization Address City/State/ZIP [place] [address] (ABNORMAL) POCT Glucose (07/07/2017 6:17 AM EST) athologist Signature POC Glucose 207 (H) 65 - 199 [place] [facility] mg/dL [facility] Comment: Supplemental ranges: <140 mg/dL before meals <180 mg/dL all other times of the day Specimen Anatomical Collection Method Collection Time Receive d Time (Source) Location / / Volume Laterality Blood specimen 07/07/2017 6:17 AM 017 6:17 (specimen) EST AM EST Daphne Shahid MD POINT OF CARE TEST ORDERABLE S Performing Organization Address City/State/ZIP [place] [address] Differential, Automated (07/07/2017 5:15 AM EST) P athologist Signature Neutrophils % 69.7 % [facility] Neutr Abs (ANC) 5.32 1.70 - [facility] 6.10 [facility] x10(3)/[facility] LABORATORY Lymphocytes % 16.3 % [facility] Lymphocytes Abs 1.2 0.9 - 3.2 [facility] x10(3)/[facility] LABORATORY Monocytes % 10.5 % [facility] Monocyte Abs 0.8 0.3 - 0.9 [facility] x10(3)/[facility] LABORATORY Eosinophils % 2.5 % [facility] Eosinophils Abs 0.2 0.0 - 0.4 [facility] x10(3)/[facility] LABORATORY Basophils % 0.7 % [facility] Basophils Abs 0.0 0.0 - 0.1 [facility] x10(3)/[facility] LABORATORY [...] Melisa Gran Abs 0.02 0.00 - 0.04 x10(3)/[facility] LABORATORY Specimen Anatomical Collection Method Collection Time Receive d Time (Source) Location / / Volume Laterality Blood specimen 07/07/2017 5:15 AM 017 5:34 (specimen) EST AM EST Resulting Agency Comment Spec In Lab Daphne Shahid MD HEMATOLOGY ORDERABLES Performing Organization Address City/State/ZIP [place] [address] (ABNORMAL) Hemogram (07/07/2017 5:15 AM EST) Analysis Performed At Patho logist Time Signature WBC 7.6 4.0 - 9.5 [facility] x10(3)/[facility] LABORATORY RBC 4.82 4.58 - [place] [facility] 5.54 [facility] x10(6)/[facility] LABORATORY Hemoglobin 14.4 13.7 - [facility] 16.[facility] gm/dL [facility]ORY Hematocrit 42.1 40.5 - [facility] 48.5 % [facility] LABORATORY MCV 87.3 82.9 - [facility] 93.1 [facility] LABORATORY MCH 29.9 27.5 - [place] [facility] 32.1 pg [facility] LABORATORY MCHC 34.2 32.0 - [facility] 35.7 gm/dL [facility] LABORATORY Platelets 188 145 - 357 [facility] x10(3)/[facility] LABORATORY RDWSD 45.1 (H) 36.0 - [facility] 45.0 [facility] LABORATORY RDWCV 14.3 (H) 11.4 - [facility] 13.8 % [facility] LABORATORY MPV 9.4 7.6 - 12.9 [facility] LABORATORY nRBC % Auto 0.0 % [facility]OR[facility] nRBC Abs Auto 0.000 0.000 - [facility] 0.000 [facility] x10(3)/[facility] LABORATORY Specimen Anatomical Collection Method Collection Time Receive d Time (Source) Location / / Volume Laterality Blood specimen 07/07/2017 5:15 AM 017 5:34 (specimen) EST AM EST Resulting Agency Comment Spec In Lab Daphne Shahid MD HEMATOLOGY ORDERABLES Performing Organization Address City/State/ZIP [place] [address] (ABNORMAL) APTT (07/07/2017 5:15 AM EST) P athologist Signature PTT 69 (H) 25 - 35 sec [facility] Comment: The recommended therapeutic range for fu ll dose, unfractionated heparin at [facility] is 80 ? 114 seconds. The use [...] Shahid MD HEMATOLOGY ORDERABLES Performing Organization Address City/[facility]/ZIP Code Phon e Number [address] Magnesium (07/07/2017 5:15 AM EST) athologist Signature Magnesium 0.94 0.69 - 1.07 [facility] mmol/L [facility] LABORATORY Specimen Anatomical Collection Method Collection Time Receive d Time (Source) Location / / Volume Laterality Blood specimen 07/07/2017 5:15 AM 017 5:34 (specimen) EST AM EST Resulting Agency Comment Spec In Lab Daphne Shahid MD CHEMISTRY ORDERABLES Performing Organization Address City/[facility] Phon e Number [address] (ABNORMAL) Basic Metabolic Panel (non-fasting) (07/07/2017 5:15 AM EST) athologist Signature Glucose Lvl 203 (H) 65 - 199 [facility] mg/dL [facility] LABORATORY Comment: Diabetes: >=200 mg/dL plus symp toms BUN 15 10 - 20 mg/dL [facility] LABORATORY Creatinine 1.09 0.80 - 1.50 mg/dL [facility] LABORATORY Sodium 142 135 - 145 [...] Anion Gap 14 5 - 15 mmol/L [facility] LABORATORY Calcium 8.6 8.5 - 10.5 mg/dL [facility] Estimated GFR >60 >=60 [facility] LABORATORY Comment: The reported eGFR should be multiplied b y 1.2 for patients. The MDRD is not an appropriate measure o f renal function for patients with body mass extremes or in patients with acute kidney failure. http://Mojostreet/DHnkdep http://Mojostreet/DHMCnkf Specimen Anatomical Collection Method Collection Time Receive d Time (Source) Location / / Volume Laterality Blood specimen 07/07/2017 5:15 AM 017 5:34 (specimen) EST AM EST Resulting Agency Comment Spec In Lab Daphne Shahid MD CHEMISTRY ORDERABLES Performing Organization Address City/State/ZIP [place] [address] (ABNORMAL) Cardiac Enzymes (LEB/CGP) (07/07/2017 5:15 AM EST) P athologist Signature Troponin-T 2.07 (H) 0.00 - [facility] 0.[facility] ng/mL [facility] Comment: The 99th percentile for Troponin T is le ss than 0.01 ng/mL, any detectable cTnT concentration using this assay should be considered elevated. According to the third universal definit ion of myocardial infarction the following criteria with a clinical prese ntation consistent with acute myocardial ischemia meets the diagnosis for a myocardial infarction (ME). Detection of a rise and/or fall of [...] additional sample may be indicated. Reference: Third [place] Definition of Myocardial Infarction. Journal of the [place] [employer] 2012;60:1581-98 CK, Total 88 0 - 200 unit/L [facility]OR[facility]ORY Specimen Anatomical Collection Method Collection Time Receive d Time (Source) Location / / Volume Laterality Blood specimen 07/07/2017 5:15 AM 017 5:34 (specimen) EST AM EST Resulting Agency Comment Spec In Lab Daphne Shahid MD CHEMISTRY ORDERABLES Performing Organization Address City/State/ZIP Code Phon e Number [address] POCT Glucose (07/07/2017 5:01 AM EST) athologist Signature POC Glucose 182 65 - 199 [facility] mg/dL [facility] Comment: Supplemental ranges: <140 mg/dL before meals <180 mg/dL all other times of the day Specimen Anatomical Collection Method Collection Time Receive d Time (Source) Location / / Volume Laterality Blood specimen 07/07/2017 5:01 AM 017 5:01 (specimen) EST AM EST Daphne Shahid MD POINT OF CARE TEST ORDERABLE S Performing Organization Address City/[facility]/ZIP Code Phon e Number [address] POCT Glucose (07/07/2017 4:08 AM EST) athologist Signature POC Glucose 199 65 - 199 [facility] mg/dL [facility] Comment: Supplemental ranges: <140 mg/dL before meals <180 mg/dL all other times of the day Specimen Anatomical Collection Method Collection Time Receive d Time (Source) Location / / Volume Laterality Blood specimen 07/07/2017 4:08 AM 017 4:08 (specimen) EST AM EST Daphne Shahid MD POINT OF CARE TEST ORDERABLE S Performing Organization Address City/State/ZIP Code Phon e Number [address] POCT Glucose (07/07/2017 3:03 AM EST) athologist Signature POC Glucose 188 65 - 199 [facility] mg/dL [facility] Comment: Supplemental ranges: <140 mg/dL before meals <180 mg/dL all other times of the day Specimen Anatomical Collection Method Collection Time Receive d Time (Source) Location / / Volume Laterality Blood specimen 07/07/2017 3:03 AM 017 3:03 (specimen) EST AM EST Daphne Shahid MD POINT OF CARE TEST ORDERABLE S Performing Organization Address City/[facility]/ZIP [place] [address] (ABNORMAL) POCT Glucose (07/07/2017 2:08 AM EST) P athologist Signature POC Glucose 200 (H) 65 - 199 [facility] mg/dL [facility] Comment: Supplemental ranges: <140 mg/dL before meals <180 mg/dL all other times of the day Specimen Anatomical Collection Method Collection Time Receive d Time (Source) Location / / Volume Laterality Blood specimen 07/07/2017 2:08 AM 017 2:08 (specimen) EST AM EST Daphne Shahid MD POINT OF CARE TEST ORDERABLE S Performing Organization Address City/[facility]/ZIP [place] [address] (ABNORMAL) POCT Glucose (07/07/2017 1:31 AM EST) athologist Signature POC Glucose 209 (H) 65 - 199 [facility] mg/dL [facility] Comment: Supplemental ranges: <140 mg/dL before meals <180 mg/dL all other times of the day Specimen Anatomical Collection Method Collection Time Receive d Time (Source) Location / / Volume Laterality Blood specimen 07/07/2017 1:31 AM 017 1:31 (specimen) EST AM EST Daphne Shahid MD POINT OF CARE TEST ORDERABLE S Performing Organization Address City/State/ZIP [place] [address] XR Chest PA or [...] Signature POC Glucose 161 65 - 199 [facility] mg/dL [facility] LABORATORY Comment: Supplemental ranges: <140 mg/dL before meals <180 mg/dL all other times of the day Specimen Anatomical Collection Method Collection Time Receive d Time (Source) Location / / Volume Laterality Blood specimen 07/07/2017 12:07 7 (specimen) AM EST 12:07 AM EST Daphne Shahid MD POINT OF CARE TEST ORDERABLE S Performing Organization Address City/State/ZIP [place] [address] (ABNORMAL) APTT (07/07/2017 12:00 AM EST) P athologist Signature PTT 103 (H) 25 - 35 sec [facility] Comment: The recommended therapeutic range for fu ll dose, unfractionated heparin at [facility] is 80 ? 114 seconds. The use [...] Shahid MD HEMATOLOGY ORDERABLES Performing Organization Address City/[facility]/ZIP Code Phon e Number [address] POCT Glucose (07/06/2017 9:55 PM EST) athologist Signature POC Glucose 109 65 - 199 [facility] mg/dL [facility]ORY Comment: Supplemental ranges: <140 mg/dL before meals <180 mg/dL all other times of the day Specimen Anatomical Collection Method Collection Time Receive d Time (Source) Location / / Volume Laterality Blood specimen 07/06/2017 9:55 PM 017 9:55 (specimen) EST PM EST Daphne Shahid MD POINT OF CARE TEST ORDERABLE S Performing Organization Address City/[facility]/ZIP Code Phon e Number [address] POCT Glucose (07/06/2017 9:04 PM EST) athologist Signature POC Glucose 120 65 - 199 [facility] mg/dL [facility] Comment: Supplemental ranges: <140 mg/dL before meals <180 mg/dL all other times of the day Specimen Anatomical Collection Method Collection Time Receive d Time (Source) Location / / Volume Laterality Blood specimen 07/06/2017 9:04 PM 017 9:04 (specimen) EST PM EST Daphne Shahid MD POINT OF CARE TEST ORDERABLE S Performing Organization Address City/[facility]/ZIP Code Phon e Number [address] POCT Glucose (07/06/2017 7:45 PM EST) athologist Signature POC Glucose 158 65 - 199 [facility] mg/dL [facility]ORATORY Comment: Supplemental ranges: <140 mg/dL before meals <180 mg/dL all other times of the day Specimen Anatomical Collection Method Collection Time Receive d Time (Source) Location / / Volume Laterality Blood specimen 07/06/2017 7:45 PM 017 7:45 (specimen) EST PM EST Daphne Shahid MD POINT OF CARE TEST ORDERABLE S Performing Organization Address [facility]/ZIP [facility] [place] [address] Potassium (07/06/2017 7:40 PM EST) athologist Signature Potassium 3.9 3.5 - 5.0 [facility] mmol/L [facility] LABORATORY Comment: Please note: ??Patients with [...] Shahid MD CHEMISTRY ORDERABLES Performing Organization Address City/[facility] [place] [address] (ABNORMAL) Cardiac Enzymes (LEB/CGP) (07/06/2017 7:40 PM EST) athologist Signature Troponin-T 2.27 (H) 0.00 - [facility] 0.00 ng/mL [facility]ORY Comment: The 99th percentile for Troponin T is le ss than 0.01 ng/mL, any detectable cTnT concentration using this assay should be considered elevated. According to the third universal definit ion of myocardial infarction the following criteria with a clinical prese ntation consistent with acute myocardial ischemia meets the diagnosis for a myocardial infarction (ME). Detection of a rise and/or fall of [...] additional sample may be indicated. Reference: Third [place] Definition of Myocardial Infarction. Journal of the [place] [employer] 2012;60:1581-98 CK, Total 93 0 - 200 unit/L [facility] Specimen Anatomical Collection Method Collection Time Receive d Time (Source) Location / / Volume Laterality Blood specimen 07/06/2017 7:40 PM 017 7:52 (specimen) EST PM EST Resulting Agency Comment Spec In Lab Daphne Shahid MD CHEMISTRY ORDERABLES Performing Organization Address City/[facility]/ZIP [place] [address] (ABNORMAL) POCT Glucose (07/06/2017 7:13 PM EST) athologist Signature POC Glucose 200 (H) 65 - 199 [facility] mg/dL [facility]ORY Comment: Supplemental ranges: <140 mg/dL before meals <180 mg/dL all other times of the day Specimen Anatomical Collection Method Collection Time Receive d Time (Source) Location / / Volume Laterality Blood specimen 07/06/2017 7:13 PM 017 7:13 (specimen) EST PM EST Daphne Shahid MD POINT OF CARE TEST ORDERABLE S Performing Organization Address City/[facility]/ZIP [place] [address] (ABNORMAL) APTT (07/06/2017 6:15 PM EST) P athologist Signature PTT 94 (H) 25 - 35 sec [facility] Comment: The recommended therapeutic range for fu ll dose, unfractionated heparin at [facility] is 80 ? 114 seconds. The use [...] Address City/State/ZIP [place] [address] (ABNORMAL) POCT Glucose (07/06/2017 6:03 PM EST) athologist Signature POC Glucose 236 (H) 65 - 199 [facility] mg/dL [facility] Comment: Supplemental ranges: <140 mg/dL before meals <180 mg/dL all other times of the day Specimen Anatomical Collection Method Collection Time Receive d Time (Source) Location / / Volume Laterality Blood specimen 07/06/2017 6:03 PM 017 6:03 (specimen) EST PM EST Daphne Shahid MD POINT OF CARE TEST ORDERABLE S Performing Organization Address City/State/ZIP [place] [address] (ABNORMAL) POCT Glucose (07/06/2017 5:01 PM EST) P athologist Signature POC Glucose 235 (H) 65 - 199 [place] [facility] mg/dL [facility] Comment: Supplemental ranges: <140 mg/dL before meals <180 mg/dL all other times of the day Specimen Anatomical Collection Method Collection Time Receive d Time (Source) Location / / Volume Laterality Blood specimen 07/06/2017 5:01 PM 017 5:01 (specimen) EST PM EST Daphne Shahid MD POINT OF CARE TEST ORDERABLE S Performing Organization Address City/State/ZIP [place] [address] (ABNORMAL) POCT Glucose (07/06/2017 4:06 PM EST) P athologist Signature POC Glucose 202 (H) 65 - 199 [place] [facility] mg/dL [facility] Comment: Supplemental ranges: <140 mg/dL before meals <180 mg/dL all other times of the day Specimen Anatomical Collection Method Collection Time Receive d Time (Source) Location / / Volume Laterality Blood specimen 07/06/2017 4:06 PM 017 4:06 (specimen) EST PM EST Daphne Shahid MD POINT OF CARE TEST ORDERABLE S Performing Organization Address City/State/ZIP [place] [address] POCT Glucose (07/06/2017 2:59 PM EST) athologist Signature POC Glucose 178 65 - 199 [facility] mg/dL [facility] LABOR[facility]ORY Comment: Supplemental ranges: <140 mg/dL before meals <180 mg/dL all other times of the day Specimen Anatomical Collection Method Collection Time Receive d Time (Source) Location / / Volume Laterality Blood specimen 07/06/2017 2:59 PM 017 2:59 (specimen) EST PM EST Daphne Shahid MD POINT OF CARE TEST ORDERABLE S Performing Organization Address City/[facility]/ZIP [place] [address] (ABNORMAL) Cardiac Enzymes (LEB/CGP) (07/06/2017 2:10 PM EST) athologist Signature Troponin-T 2.34 (H) 0.00 - [place] OLIVASCK 0.00 ng/mL [facility] Comment: The 99th percentile for Troponin T is le ss than 0.01 ng/mL, any detectable cTnT concentration using this assay should be considered elevated. According to the third universal definit ion of myocardial infarction the following criteria with a clinical prese ntation consistent with acute myocardial ischemia meets the diagnosis for a myocardial infarction (ME). Detection of a rise and/or fall of [...] additional sample may be indicated. Reference: Third [place] Definition of Myocardial Infarction. Journal of the [place] College [employer]iology 2012;60:1581-98 CK, Total 101 0 - 200 unit/L [facility]OR[facility] Specimen Anatomical Collection Method Collection Time Receive d Time (Source) Location / / Volume Laterality Blood specimen 07/06/2017 2:10 PM 017 2:26 (specimen) EST PM EST Resulting Agency Comment Spec In Lab Daphne Shahid MD CHEMISTRY ORDERABLES Performing Organization Address City/[facility]/ZIP [facility] Phon e Number [address] POCT Glucose (07/06/2017 2:08 PM EST) athologist Signature POC Glucose 192 65 - 199 [facility] mg/dL [facility] Comment: Supplemental ranges: <140 mg/dL before meals <180 mg/dL all other times of the day Specimen Anatomical Collection Method Collection Time Receive d Time (Source) Location / / Volume Laterality Blood specimen 07/06/2017 2:08 PM 017 2:08 (specimen) EST PM EST Daphne Shahid MD POINT OF CARE TEST ORDERABLE S Performing Organization Address City/[facility]/ZIP [place] [address] POCT Glucose (07/06/2017 1:04 PM EST) athologist Signature POC Glucose 162 65 - 199 [facility] mg/dL [facility] Comment: Supplemental ranges: <140 mg/dL before meals <180 mg/dL all other times of the day Specimen Anatomical Collection Method Collection Time Receive d Time (Source) Location / / Volume Laterality Blood specimen 07/06/2017 1:04 PM 017 1:04 (specimen) EST PM EST Daphne Shahid MD POINT OF CARE TEST ORDERABLE S Performing Organization Address City/State/ZIP Code Phon e Number [address] POCT Glucose (07/06/2017 12:05 PM EST) P athologist Signature POC Glucose 196 65 - 199 [facility] mg/dL [facility] Comment: Supplemental ranges: <140 mg/dL before meals <180 mg/dL all other times of the day Specimen Anatomical Collection Method Collection Time Receive d Time (Source) Location / / Volume Laterality Blood specimen 07/06/2017 12:05 7 (specimen) PM EST 12:05 PM EST Daphne Shahid MD POINT OF CARE TEST ORDERABLE S Performing Organization Address [facility]/ZIP Code Phon e Number [address] EKG 12 Lead (07/06/2017 12:00 PM EST) Component Value Ref Range Test Analysis Performed Pathologis t Method Time At Signature Ventricular rate 91 BPM MUSE SYSTEM Atrial Rate 91 BPM MUSE SYSTEM P-R Interval 140 ms MUSE SYSTEM QRS Duration 94 ms MUSE SYSTEM Q-T Interval 394 ms MUSE SYSTEM QTC Calculated 484 ms MUSE SYSTEM (Bezet) Calculated P [place] 36 degrees MUSE SYSTEM Calculated R [place] -19 degrees MUSE SYSTEM Calculated T [place] 104 degrees MUSE SYSTEM INTERPRETATION Normal sinus rhythm MUSE SYSTEM 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) ST & T wave abnormality, consider lateral ischemia Abnormal ECG When compared with ECG of 05-JUL-2017 20:39, No significant change was found Confirmed by MD Luci, Taurus Braun ([id number]) on 07/06/2017 5:07:33 PM Specimen Anatomical Collection Method Collection Time Receive d Time (Source) Location / / Volume Laterality 07/06/2017 12:00 07/06/2017 5:07 PM EST PM EST Daphne Shahid MD ECG ORDERABLES Performing Organization Address City/[facility]/ZIP Code Phon e Number MUSE SYSTEM ABORH Recheck Status (07/06/2017 12:00 PM EST) Patholo gist Method Time Signature ABORH Type Completed [facility] LABORATORY Specimen Anatomical Collection Method Collection Time Receive d Time (Source) Location / / Volume Laterality Blood specimen 07/06/2017 12:00 7 (specimen) PM EST 12:24 PM EST Resulting Agency Comment Spec In Lab Daphne Shahid MD BLOOD BANK ORDERABLES Performing Organization Address City/[facility]/ZIP [place] [address] Antibody screen (07/06/2017 12:00 PM EST) Patholo gist Method Time Signature Ab Screen Negative [facility] LABORATORY Expires at 07/09/2017 [facility] [id number] on: [facility]ORATORY Specimen Anatomical Collection Method Collection Time Receive d Time (Source) Location / / Volume Laterality Blood specimen 07/06/2017 12:00 7 (specimen) PM EST 12:24 PM EST Resulting Agency Comment Spec In Lab Daphne Shahid MD BLOOD BANK ORDERABLES Performing Organization Address City/[facility]/ZIP [place] [address] ABO/Rh Typing (07/06/2017 12:00 PM EST) P athologist Signature ABORh Type O Pos [facility] Specimen Anatomical Collection Method Collection Time Receive d Time (Source) Location / / Volume Laterality Blood specimen 07/06/2017 12:00 7 (specimen) PM EST 12:24 PM EST Resulting Agency Comment Spec In Lab Daphne Shahid MD BLOOD BANK ORDERABLES Performing Organization Address City/[facility] [place] [address] Prothrombin Time (07/06/2017 11:24 AM EST) P athologist Signature PT 13.3 11.8 - 14.0 [facility] LABORATORY INR 1.0 0.9 - 1.1 [facility] [...] Shahid MD HEMATOLOGY ORDERABLES Performing Organization Address City/[facility]/ZIP [place] [address] (ABNORMAL) APTT (07/06/2017 11:24 AM EST) P athologist Signature PTT 52 (H) 25 - 35 sec [facility] Comment: The recommended therapeutic range for fu ll dose, unfractionated heparin at [facility] is 80 ? 114 seconds. The use [...] Shahid MD HEMATOLOGY ORDERABLES Performing Organization Address City/[facility]/ZIP [place] [address] POCT Glucose (07/06/2017 11:02 AM EST) P athologist Signature POC Glucose 187 65 - 199 [facility] mg/dL [facility] Comment: Supplemental ranges: <140 mg/dL before meals <180 mg/dL all other times of the day Specimen Anatomical Collection Method Collection Time Receive d Time (Source) Location / / Volume Laterality Blood specimen 07/06/2017 11:02 7 (specimen) AM EST 11:02 AM EST Daphne Shahid MD POINT OF CARE TEST ORDERABLE S Performing Organization Address City/[facility]/ZIP [place] [address] POCT Glucose (07/06/2017 10:18 AM EST) athologist Signature POC Glucose 193 65 - 199 [facility] mg/dL [facility] Comment: Supplemental ranges: <140 mg/dL before meals <180 mg/dL all other times of the day Specimen Anatomical Collection Method Collection Time Receive d Time (Source) Location / / Volume Laterality Blood specimen 07/06/2017 10:18 7 (specimen) AM EST 10:18 AM EST Daphne Shahid MD POINT OF CARE TEST ORDERABLE S Performing Organization Address City/State/ZIP [place] [address] POCT Glucose (07/06/2017 9:25 AM EST) athologist Signature POC Glucose 182 65 - 199 [facility] mg/dL [facility] Comment: Supplemental ranges: <140 mg/dL before meals <180 mg/dL all other times of the day Specimen Anatomical Collection Method Collection Time Receive d Time (Source) Location / / Volume Laterality Blood specimen 07/06/2017 9:25 AM 017 9:25 (specimen) EST AM EST Daphne Shahid MD POINT OF CARE TEST ORDERABLE S Performing Organization Address City/[facility] Code [place] [address] (ABNORMAL) Cardiac Enzymes (LEB/CGP) (07/06/2017 8:10 AM EST) athologist Signature Troponin-T 2.26 (H) 0.00 - [facility] 0.00 ng/mL [facility] Comment: The 99th percentile for Troponin T is le ss than 0.01 ng/mL, any detectable cTnT concentration using this assay should be considered elevated. According to the third universal definit ion of myocardial infarction the following criteria with a clinical prese ntation consistent with acute myocardial ischemia meets the diagnosis for a myocardial infarction (ME). Detection of a rise and/or fall of [...] additional sample may be indicated. Reference: Third [place] Definition of Myocardial Infarction. Journal of the [place] College [employer]iology 2012;60:1581-98 CK, Total 124 0 - 200 unit/L [facility] Specimen Anatomical Collection Method Collection Time Receive d Time (Source) Location / / Volume Laterality Blood specimen 07/06/2017 8:10 AM 017 8:23 (specimen) EST AM EST Resulting Agency Comment Spec In Lab Daphne Shahid MD CHEMISTRY ORDERABLES Performing Organization Address City/[facility]/ZIP [place] [address] Magnesium (07/06/2017 8:10 AM EST) P athologist Signature Magnesium 0.84 0.69 - 1.07 [facility] mmol/L [facility] Specimen Anatomical Collection Method Collection Time Receive d Time (Source) Location / / Volume Laterality Blood specimen 07/06/2017 8:10 AM 017 8:21 (specimen) EST AM EST Resulting Agency Comment Spec In Lab Daphne Shahid MD CHEMISTRY ORDERABLES Performing Organization Address City/[facility]/ZIP [facility] [place] [address] (ABNORMAL) Basic Metabolic Panel (non-fasting) (07/06/2017 8:10 AM EST) athologist Signature Glucose Lvl 199 65 - 199 [facility] mg/dL [facility] Comment: Diabetes: >=200 mg/dL plus symp toms BUN 16 10 - 20 mg/dL [facility] Creatinine 1.04 0.80 - 1.50 mg/dL [facility] [...] 15 mmol/L [facility] Calcium 8.1 (L) 8.5 - 10.5 mg/dL [facility] Estimated GFR >60 >=60 [facility] Comment: The reported eGFR should be multiplied b y 1.2 for patients. The MDRD is not an appropriate measure o f renal function for patients with body mass extremes or in patients with acute kidney failure. http://Mojostreet/DHnkdep http://Mojostreet/DHMCnkf Specimen Anatomical Collection Method Collection Time Receive d Time (Source) Location / / Volume Laterality Blood specimen 07/06/2017 8:10 AM 017 8:21 (specimen) EST AM EST Resulting Agency Comment Spec In Lab Daphne Shahid MD CHEMISTRY ORDERABLES Performing Organization Address City/State/ZIP [place] [address] POCT Glucose (07/06/2017 7:34 AM EST) P athologist Signature POC Glucose 198 65 - 199 [facility] mg/dL [facility] Comment: Supplemental ranges: <140 mg/dL before meals <180 mg/dL all other times of the day Specimen Anatomical Collection Method Collection Time Receive d Time (Source) Location / / Volume Laterality Blood specimen 07/06/2017 7:34 AM 017 7:34 (specimen) EST AM EST Daphne Shahid MD POINT OF CARE TEST ORDERABLE S Performing Organization Address City/State/ZIP [place] [address] [facility] [address] POCT Glucose (07/06/2017 7:03 AM EST) P athologist Signature POC Glucose 181 65 - 199 [facility] mg/dL [facility] Comment: Supplemental ranges: <140 mg/dL before meals <180 mg/dL all other times of the day Specimen Anatomical Collection Method Collection Time Receive d Time (Source) Location / / Volume Laterality Blood specimen 07/06/2017 7:03 AM 017 7:03 (specimen) EST AM EST Daphne Shahid MD POINT OF CARE TEST ORDERABLE S Performing Organization Address City/State/ZIP Code Phon e Number [address] XR Chest PA or [...] Glucose 172 65 - 199 [facility] mg/dL [facility] Comment: Supplemental ranges: <140 mg/dL before meals <180 mg/dL all other times of the day Specimen Anatomical Collection Method Collection Time Receive d Time (Source) Location / / Volume Laterality Blood specimen 07/06/2017 6:21 AM 017 6:21 (specimen) EST AM EST Daphne Shahid MD POINT OF CARE TEST ORDERABLE S Performing Organization Address City/State/ZIP [place] [address] POCT Glucose (07/06/2017 5:08 AM EST) athologist Signature POC Glucose 154 65 - 199 [facility] mg/dL [facility] Comment: Supplemental ranges: <140 mg/dL before meals <180 mg/dL all other times of the day Specimen Anatomical Collection Method Collection Time Receive d Time (Source) Location / / Volume Laterality Blood specimen 07/06/2017 5:08 AM 017 5:08 (specimen) EST AM EST Daphne Shahid MD POINT OF CARE TEST ORDERABLE S Performing Organization Address City/State/ZIP [place] [address] POCT Glucose (07/06/2017 4:05 AM EST) athologist Signature POC Glucose 142 65 - 199 [facility] mg/dL [facility] Comment: Supplemental ranges: <140 mg/dL before meals <180 mg/dL all other times of the day Specimen Anatomical Collection Method Collection Time Receive d Time (Source) Location / / Volume Laterality Blood specimen 07/06/2017 4:05 AM 017 4:05 (specimen) EST AM EST Daphne Shahid MD POINT OF CARE TEST ORDERABLE S Performing Organization Address City/[facility]/ZIP Code Phon e Number [address] POCT Glucose (07/06/2017 3:00 AM EST) athologist Signature POC Glucose 116 65 - 199 [facility] mg/dL [facility] Comment: Supplemental ranges: <140 mg/dL before meals <180 mg/dL all other times of the day Specimen Anatomical Collection Method Collection Time Receive d Time (Source) Location / / Volume Laterality Blood specimen 07/06/2017 3:00 AM 017 3:00 (specimen) EST AM EST Daphne Shahid MD POINT OF CARE TEST ORDERABLE S Performing Organization Address [facility]/ZIP [place] [address] Potassium (07/06/2017 2:20 AM EST) athologist [facility] Potassium 3.9 3.5 - 5.0 [facility] mmol/L [facility] Comment: Please note: ??Patients with [...] Shahid MD CHEMISTRY ORDERABLES Performing Organization Address City/[facility]/ZIP Code Phon e Number [address] Differential, Automated (07/06/2017 2:20 AM EST) athologist Signature Neutrophils % 72.9 % [facility] Neutr Abs (ANC) 5.53 1.70 - [facility] 6.10 [facility] x10(3)/[facility] LABORATORY Lymphocytes % 16.4 % [facility] Lymphocytes Abs 1.2 0.9 - 3.2 [facility] x10(3)/[facility] LABORATORY Monocytes % 9.4 % [facility] Monocyte Abs 0.7 0.3 - 0.9 [facility] x10(3)/[facility] LABORATORY Eosinophils % 0.5 % [facility] Eosinophils Abs 0.0 0.0 - 0.4 [facility] x10(3)/[facility] LABORATORY Basophils % 0.4 % [facility] Basophils Abs 0.0 0.0 - 0.1 [facility] x10(3)/[facility] LABORATORY [...] Gran Abs 0.03 0.00 - 0.04 x10(3)/[facility] LABORATORY Specimen Anatomical Collection Method Collection Time Receive d Time (Source) Location / / Volume Laterality Blood specimen 07/06/2017 2:20 AM 017 2:33 (specimen) EST AM EST Resulting Agency Comment Spec In Lab Daphne Shahid MD HEMATOLOGY ORDERABLES Performing Organization Address City/State/ZIP [place] [address] (ABNORMAL) Hemogram (07/06/2017 2:20 AM EST) Analysis Performed At Patho logist Time Signature WBC 7.6 4.0 - 9.5 [facility] x10(3)/[facility] LABORATORY RBC 4.52 (L) 4.58 - [facility] 5.54 [facility] x10(6)/[facility] LABORATORY Hemoglobin 13.4 (L) 13.7 - [facility] 16.5 gm/dL [facility] LABORATORY Hematocrit 39.7 (L) 40.5 - [place] RYAN 48.5 % [facility] LABORATORY MCV 87.8 82.9 - [facility] 93.1 [facility] LABORATORY MCH 29.6 27.5 - [place] OLIVASCK 32.1 pg [facility] LABORATORY MCHC 33.8 32.0 - [facility] 35.7 gm/dL [facility] LABORATORY Platelets 189 145 - 357 [facility] x10(3)/[facility] LABORATORY RDWSD 45.6 (H) 36.0 - [facility] 45.0 [facility] LABORATORY RDWCV 14.3 (H) 11.4 - [facility] 13.8 % [facility] LABORATORY MPV 9.1 7.6 - 12.9 [facility] LABORATORY nRBC % Auto 0.0 % [facility] nRBC Abs Auto 0.000 0.000 - [facility] 0.000 [facility] x10(3)/[facility] LABORATORY Specimen Anatomical Collection Method Collection Time Receive d Time (Source) Location / / Volume Laterality Blood specimen 07/06/2017 2:20 AM 017 2:33 (specimen) EST AM EST Resulting Agency Comment Spec In Lab Daphne Shahid MD HEMATOLOGY ORDERABLES Performing Organization Address City/State/ZIP [place] [address] (ABNORMAL) APTT (07/06/2017 2:20 AM EST) athologist Signature PTT 52 (H) 25 - 35 sec [facility] Comment: The recommended therapeutic range for fu ll dose, unfractionated heparin at [facility] is 80 ? 114 seconds. The use [...] Address City/State/ZIP Code Phon e Number [address] POCT Glucose (07/06/2017 2:20 AM EST) athologist [facility] POC Glucose 115 65 - 199 [facility] mg/dL [facility] Comment: Supplemental ranges: <140 mg/dL before meals <180 mg/dL all other times of the day Specimen Anatomical Collection Method Collection Time Receive d Time (Source) Location / / Volume Laterality Blood specimen 07/06/2017 2:20 AM 017 2:20 (specimen) EST AM EST Daphne Shahid MD POINT OF CARE TEST ORDERABLE S Performing Organization Address City/[facility]/ZIP [place] [address] (ABNORMAL) Cardiac Enzymes (LEB/CGP) (07/06/2017 2:20 AM EST) athologist [facility] Troponin-T 2.13 (H) 0.00 - [place] VILLAREALCOCK 0.00 ng/mL [facility] Comment: The 99th percentile for Troponin T is le ss than 0.01 ng/mL, any detectable cTnT concentration using this assay should be considered elevated. According to the third universal definit ion of myocardial infarction the following criteria with a clinical prese ntation consistent with acute myocardial ischemia meets the diagnosis for a myocardial infarction (ME). Detection of a rise and/or fall of [...] additional sample may be indicated. Reference: Third [place] Definition of Myocardial Infarction. Journal of the [place] College [employer]iology 2012;60:1581-98 CK, Total 129 0 - 200 unit/L [facility] Specimen Anatomical Collection Method Collection Time Receive d Time (Source) Location / / Volume Laterality Blood specimen 07/06/2017 2:20 AM 017 2:33 (specimen) EST AM EST Resulting Agency Comment Spec In Lab Daphne Shahid MD CHEMISTRY ORDERABLES Performing Organization Address City/State/ZIP [place] [address] (ABNORMAL) Hemoglobin A1c (07/06/2017 [...] Mellitus, Diabetes Care 2013; 36: Suppl. 1, F33-31 Est Avg Gluc See note mg/dL [facility] [...] with hemoglobinopathies. Additional resources are available on [facility] website. Macario HAMMOND, Ruthann J, Deysi R, et al. ??Tr anslating the A1C assay into estimated average glucose values. ??Diabetes Care 2008:31(8):6927-7541. Specimen Anatomical Collection Method Collection Time Receive d Time (Source) Location / / Volume Laterality Blood specimen 07/06/2017 2:20 AM 017 2:34 (specimen) EST AM EST Resulting Agency Comment Spec In Lab Daphne Shahid MD CHEMISTRY ORDERABLES Performing Organization Address City/State/ZIP [place] [address] (ABNORMAL) Lipid Panel (07/06/2017 2:20 AM EST) [facility] gist Method Time Signature Chol, Total 150 <=239 [place] mg/dL [facility] LABORATORY Triglycerides 129 <=199 [facility] mg/dL [facility] LABORATORY HDL 32 (L) >=40 [place] mg/dL [facility] LABORATORY LDL Cholesterol 92 <=190 [facility] mg/dL [facility] LABORATORY Chol/HDL Ratio 4.7 ratio [facility] Lipid See Note [place] Interpretation [facility] LABORATORY Comment: Lipid management should be guided by a p atient? s ASCVD risk, goals and preferences. ACC/AHA Guidelines recommend high intens ity statin if clinical ASCVD or LDL greater than or equal to 190 mg/dL. http://Rewarderurl.com/ZER-NZG-Hqaijnosw Adults aged 40-75 with LDL 70-189 mg/dL should have their 10 year ASCVD risk estimated with the ACC/AHA ASCVD risk es timator http://tools.acc.org/VGLZT-Nirl-Pxqowsnd r/ Statin should be discussed if risk [...] Shahid MD CHEMISTRY ORDERABLES Performing Organization Address City/[facility]/ZIP Code Phon e Number [address] POCT Glucose (07/06/2017 1:09 AM EST) P athologist Signature POC Glucose 121 65 - 199 [facility] mg/dL [facility]OR[facility]ORY Comment: Supplemental ranges: <140 mg/dL before meals <180 mg/dL all other times of the day Specimen Anatomical Collection Method Collection Time Receive d Time (Source) Location / / Volume Laterality Blood specimen 07/06/2017 1:09 AM 017 1:09 (specimen) EST AM EST Daphne Shahid MD POINT OF CARE TEST ORDERABLE S Performing Organization Address City/[facility]/ZIP Code Phon e Number [address] POCT Glucose (07/06/2017 12:06 AM EST) P athologist Signature POC Glucose 147 65 - 199 [facility] mg[facility]dL [facility] LABORATORY Comment: Supplemental ranges: <140 mg/dL before meals <180 mg/dL all other times of the day Specimen Anatomical Collection Method Collection Time Receive d Time (Source) Location / / Volume Laterality Blood specimen 07/06/2017 12:06 7 (specimen) AM EST 12:06 AM EST Daphne Shahid MD POINT OF CARE TEST ORDERABLE S Performing Organization Address City/[facility]/ZIP Code Phon e Number [place] [phone]OS[address] (ABNORMAL) POCT Glucose (07/05/2017 10:56 PM EST) athologist Signature POC Glucose 200 (H) 65 - 199 [facility] mg/dL [facility] LABORATORY Comment: Supplemental ranges: <140 mg/dL before meals <180 mg/dL all other times of the day Specimen Anatomical Collection Method Collection Time Receive d Time (Source) Location / / Volume Laterality Blood specimen 07/05/2017 10:56 7 (specimen) PM EST 10:56 PM EST Daphne Shahid MD POINT OF CARE TEST ORDERABLE S Performing Organization Address City/State/ZIP [place] [address] (ABNORMAL) POCT Glucose (07/05/2017 10:05 PM EST) athologist Signature POC Glucose 225 (H) 65 - 199 [facility] mg/dL [facility] LABORATORY Comment: Supplemental ranges: <140 mg/dL before meals <180 mg/dL all other times of the day Specimen Anatomical Collection Method Collection Time Receive d Time (Source) Location / / Volume Laterality Blood specimen 07/05/2017 10:05 7 (specimen) PM EST 10:05 PM EST Daphne Shahid MD POINT OF CARE TEST ORDERABLE S Performing Organization Address City/State/ZIP [place] [address] (ABNORMAL) POCT Glucose (07/05/2017 9:02 PM EST) athologist Signature POC Glucose 301 (H) 65 - 199 [place] mg/dL [facility] LABORATORY Comment: Supplemental ranges: <140 mg/dL before meals <180 mg/dL all other times of the day Specimen Anatomical Collection Method Collection Time Receive d Time (Source) Location / / Volume Laterality Blood specimen 07/05/2017 9:02 PM 017 9:02 (specimen) EST PM EST Daphne Shahid MD POINT OF CARE TEST ORDERABLE S Performing Organization Address City/State/ZIP [place] [address] XR Chest PA or [...] 474 ms MUSE SYSTEM (Bezet) Calculated P [place] 50 degrees MUSE SYSTEM Calculated R [place] -28 degrees MUSE SYSTEM Calculated T [place] 90 degrees MUSE SYSTEM INTERPRETATION Sinus tachycardia [...] (ABNORMAL) Differential, Automated (07/05/2017 8:20 PM EST) [facility] Method Time Signature Neutrophils % 88.4 % [facility] LABORATORY Neutr Abs (ANC) 9.08 (H) 1.70 - [facility] 6.10 [facility] x10(3)/[facility] L LABORATORY Lymphocytes % 7.0 % [facility] LABORATORY Lymphocytes Abs 0.7 (L) 0.9 - 3.2 [facility] x10(3)/[facility] LABORATORY Monocytes % 3.7 % [facility] LABORATORY Monocyte Abs 0.4 0.3 - 0.9 [facility] x10(3)/[facility] LABORATORY Eosinophils % 0.1 % [facility] LABORATORY Eosinophils Abs 0.0 0.0 - 0.4 [facility] x10(3)/[facility] LABORATORY Basophils % 0.2 % [facility] LABORATORY Basophils Abs 0.0 0.0 - 0.1 [facility] x10(3)/[facility] LABORATORY Immature Gran % [...] Gran Abs 0.06 (H) 0.00 - 0.04 x10(3)/[facility] LABORATORY Specimen Anatomical Collection Method Collection Time Receive d Time (Source) Location / / Volume Laterality Blood specimen 07/05/2017 8:20 PM 017 8:27 (specimen) EST PM EST Resulting Agency Comment Spec In Lab Daphne Shahid MD HEMATOLOGY ORDERABLES Performing Organization Address City/State/ZIP [place] [address] (ABNORMAL) Hemogram (07/05/2017 8:20 PM EST) Analysis Performed At Patho logist Time Signature WBC 10.3 (H) 4.0 - 9.5 [facility] x10(3)/[facility] LABORATORY RBC 4.64 4.58 - [facility] 5.54 [facility] x10(6)/[facility] LABORATORY Hemoglobin 14.1 13.7 - [facility] 16.5 gm/dL [facility] LABORATORY Hematocrit 40.8 40.5 - [facility] 48.5 % [facility] LABORATORY MCV 87.9 82.9 - [facility] 93.1 [facility] LABORATORY MCH 30.4 27.5 - [facility] 32.1 pg [facility] LABORATORY MCHC 34.6 32.0 - [facility] 35.7 gm/dL [facility] LABORATORY Platelets 204 145 - 357 [facility] x10(3)/[facility] LABORATORY RDWSD 46.1 (H) 36.0 - [facility] 45.0 [facility] LABORATORY RDWCV 14.5 (H) 11.4 - [facility] 13.8 % [facility] LABORATORY MPV 9.7 7.6 - 12.9 [facility] LABORATORY nRBC % Auto 0.0 % [facility] LABORATORY nRBC Abs Auto 0.000 0.000 - [facility] 0.000 [facility] x10(3)/[facility] LABORATORY Specimen Anatomical Collection Method Collection Time Receive d Time (Source) Location / / Volume Laterality Blood specimen 07/05/2017 8:20 PM 017 8:27 (specimen) EST PM EST Resulting Agency Comment Spec In Lab Daphne Shahid MD HEMATOLOGY ORDERABLES Performing Organization Address City/State/ZIP Code Phon e Number [place] [phone]OS[address]ORY [address] APTT (07/05/2017 8:20 PM EST) athologist Signature PTT 32 25 - 35 sec [facility] LABORATORY Comment: The recommended therapeutic range for fu ll dose, unfractionated heparin at [facility] is 80 ? 114 seconds. The use [...] Shahid MD HEMATOLOGY ORDERABLES Performing Organization Address [facility] [place] [address] (ABNORMAL) Cardiac Enzymes (LEB/CGP) (07/05/2017 8:20 PM EST) athologist Signature Troponin-T 2.11 (H) 0.00 - [facility] 0.00 ng/mL [facility] LABORATORY Comment: The 99th percentile for Troponin T is le ss than 0.01 ng/mL, any detectable cTnT concentration using this assay should be considered elevated. According to the third universal definit ion of myocardial infarction the following criteria with a clinical prese ntation consistent with acute myocardial ischemia meets the diagnosis for a myocardial infarction (ME). Detection of a rise and/or fall of [...] additional sample may be indicated. Reference: Third [place] Definition of Myocardial Infarction. Journal of the [place] [employer] 2012;60:1581-98 CK, Total 149 0 - 200 unit/L [facility] LABORATORY Specimen Anatomical Collection Method Collection Time Receive d Time (Source) Location / / Volume Laterality Blood specimen 07/05/2017 8:20 PM 017 8:27 (specimen) EST PM EST Resulting Agency Comment Spec In Lab Daphne Shahid MD CHEMISTRY ORDERABLES Performing Organization Address City/[facility]/ZIP [place] [address] (ABNORMAL) Magnesium (07/05/2017 8:20 PM EST) P athologist Signature Magnesium 0.68 (L) 0.69 - 1.07 [facility] mmol/L [facility] LABORATORY Specimen Anatomical Collection Method Collection Time Receive d Time (Source) Location / / Volume Laterality Blood specimen 07/05/2017 8:20 PM 017 8:27 (specimen) EST PM EST Resulting Agency Comment Spec In Lab Daphne Shahid MD CHEMISTRY ORDERABLES Performing Organization Address City/[facility]/ZIP [place] [address] (ABNORMAL) Basic Metabolic Panel (non-fasting) (07/05/2017 8:20 PM EST) P athologist Signature Glucose Lvl 321 (H) 65 - 199 [facility] mg/dL [facility] LABORATORY Comment: Diabetes: >=200 mg/dL plus symp toms BUN 20 10 - 20 mg/dL [facility] LABORATORY Creatinine 1.12 0.80 - 1.50 mg/dL [facility] LABORATORY Sodium 139 135 - 145 [...] Anion Gap 14 5 - 15 mmol/L [facility] LABORATORY Calcium 8.1 (L) 8.5 - 10.5 mg/dL [facility] LABORATORY Estimated GFR >60 >=60 [facility] LABORATORY Comment: The reported eGFR should be multiplied b y 1.2 for patients. The MDRD is not an appropriate measure o f renal function for patients with body mass extremes or in patients with acute kidney failure. http://Mojostreet/DHnkdep http://Mojostreet/[facility] Specimen Anatomical Collection Method Collection Time Receive d Time (Source) Location / / Volume Laterality Blood specimen 07/05/2017 8:20 PM 017 8:27 (specimen) EST PM EST Resulting Agency Comment Spec In Lab Daphne Shahid MD CHEMISTRY ORDERABLES Performing Organization Address City/State/ZIP Code Phon e Number [address] (ABNORMAL) POCT Glucose (07/05/2017 7:32 PM EST) P athologist Signature POC Glucose 296 (H) 65 - 199 [facility] mg/dL [facility] LABORATORY Comment: Supplemental ranges: <140 mg/dL before meals <180 mg/dL all other times of the day Specimen Anatomical Collection Method Collection Time Receive d Time (Source) Location / / Volume Laterality Blood specimen 07/05/2017 7:32 PM 017 7:32 (specimen) EST PM EST Daphne Shahid MD POINT OF CARE TEST ORDERABLE S Performing Organization Address City/[facility]/ZIP [place] [address] CARDIAC CATHETERIZATION (07/05/2017 6:47 PM EST) Specimen (Source) Anatomical Location Collection Method / Collectio n Time Received Time / Laterality Volume Narrative CARDIOMAC SYSTEM - 07/05/2017 7:27 PM ES T ?[facility] ? Cardiac Cathete rization/Intervention Report ? Patient Name: Natalya, Gregory ? Procedure Date: 07/05/2017 ? A #: [id number] ? Primary Physician: Clarisa, Jet T ? Case #: [id number] ? File Name: [id number] ? Catheterization Order Number: [id number] ? [facility] ? Final Report [place], [place] ? Patient Name: ? Gregory Natalya ?ID#: ?[id number] ? : ?1945 ? Procedure Date: ? Johnny 11, 20 17 ?Case #: ? [id number] ? Room: ? 6 ? Case Physician: ? Jet Mckenna , M.D. ?Start: ?18:06 ? Admission: ??07/05/2017 [...] presented with: non -STEMI (w/i 7 days). [place] ?Cardiovascular Society angina c lass was IV. [...] ?Successful IABP placement. ?The attending physician was linda gutiérrez for the entire procedure. ?Dr. Jet Mckenna M.D. was pres ent during the moderate sedation ?intraservice time as documented by the sedation nurse. ??Case time = 00:42. ?Dr. Jet Mckenna M.D. performe d the coronary angiography, left heart ?catheterization, access site angio graphy and IABP insertion in labor relations analyst. ? Jet Mckenna M.D. ? Electronically Signed by: Jet bunch M.D. ? Report Finalized: 07/05/2017 ??19:23 ? Report Last Ammended: 10/26/2017 ??10:29 ? Procedure Note Jet Mckenna MD - 10/26/2017Formatt ing of this note might be different from the original. [facility] Cardiac Catheterization/Intervention Re port Patient Name: Gregory Hoang Procedure Date: 07/05/2017 A #: [id number] Primary Physician: Jet Mckenna Case #: [id number] File Name: [id number] Catheterization Order Number: [id number] [facility] Final Report [place], [place] Patient Name: Gregory Hoang ID#: [id number] 3- : 1945 Procedure Date: July 05, 2017 [...] presented with: non-STEMI ( w/i 7 days). [place] [employer] angina class was IV. No [...] site angiograph y and IABP insertion in labor relations analyst. Jet Mckenna M.D. Electronically Signed by: Jet [...] AM EST Procedure: ?Transthoracic Echocardiogram Patient: ?NATALYA GREGORY E ? (Age): 1945(72y) Med Rec#: ? [id number] ?Sex: ?M ? Site Loc: ? [facility] ?Ht / Wt: ??173(cm)/86(kg) Pt. Loc: ?CCU ? BSA: ?2 Study Date: ?? 07/05/2017 ?Pt. Type: Inpatient Tape: ? Referring: Daphne Shahid ([id number]) Referring: MANDA ALCANTAR Reading: Blade Preston ([id number]) Mud Trucker: Dayami Paula BA, [facility] Diagnosis: *ICD-10-PCS Non-ST elevation (NSTEMI) m yocardial [...] E-wave Vmax ?0.8 ?m/sec ? MV deceleration [id number] ?msec ? MV A-wave Vmax ?0.8 ?m/sec [...] ? Mid-Inferior ?Akinetic ? Mid-Inferoseptal ?Hypokinetic ? [place]-Septal ? Akinetic ? [place]-Anterior ? Hypokinetic ? [place]-Lateral ?Hypokinetic ? [place]-Inferior ? Akinetic ? [place]-Tip ?Akinetic ? This report has been electronically sign ed by: _ Blade Preston MD ? 07/06/2017 08 :53:15 Images reviewed and interpretation verif ied [facility] Cardiac Ultrasound Laboratory Procedure Note Blade Preston MD - 07/06/2017Formatt ing of this note might be different from the original. Procedure: Transthoracic Echocardiogram Patient: NATALYA MCBRIDE(Age): [birth year]72y) Med Rec#: [id number] Sex: M Site Loc: [facility] Ht / Wt: 173(cm)/86(kg) Pt. Loc: CCU BSA: 2 Study Date: 07/05/2017 Pt. Type: Inpatie nt Tape: Referring: Daphne Shahid ([id number]) Referring: MANDA ALCANTAR Reading: Blade Preston ([id number]) Mud Trucker: Dayami Paula BA [facility] Diagnosis: *ICD-10-PCS Non-ST elevation (NSTEMI) m yocardial [...] MV E-wave Vmax 0.8 m/sec MV deceleration [id number] msec MV A-wave Vmax 0.8 m/sec MV [...] Hypokinetic Mid-Posterolateral Hypokinetic Mid-Inferior Akinetic Mid-Inferoseptal Hypokinetic [place]-Septal Akinetic [place]-Anterior Hypokinetic [place]-Lateral Hypokinetic [place]-Inferior Akinetic [place]-Tip Akinetic This report has been electronically sign ed by: _ Blade Preston MD 07/06/2017 08:53:15 Images reviewed and interpretation verif ied [facility] Cardiac Ultrasound Laboratory Daphne Shahid MD ECHO ORDERABLES Performing Organization Address City/State/ZIP Code Phon e Number [facility] Differential, Automated (07/05/2017 4:55 PM EST) P athologist Signature Neutrophils % 77.0 % [facility] LABORATORY Neutr Abs (ANC) 5.26 1.70 - [facility] 6.10 [facility] x10(3)/[facility] LABORATORY Lymphocytes % 13.3 % [facility] LABORAT[facility] Lymphocytes Abs 0.9 0.9 - 3.2 [facility] x10(3)/[facility] LABORATORY Monocytes % 8.2 % [facility] LABORATORY Monocyte Abs 0.6 0.3 - 0.9 [facility] x10(3)/[facility] LABORATORY Eosinophils % 0.7 % [facility]OR[facility] Eosinophils Abs 0.0 0.0 - 0.4 [facility] x10(3)/[facility] LABORATORY Basophils % 0.4 % [facility]OR[facility] Basophils Abs 0.0 0.0 - 0.1 [facility] x10(3)/[facility] LABORATORY [...] Gran Abs 0.03 0.00 - 0.04 x10(3)/[facility] LABORATORY Specimen Anatomical Collection Method Collection Time Receive d Time (Source) Location / / Volume Laterality Blood specimen 07/05/2017 4:55 PM 017 5:24 (specimen) EST PM EST Resulting Agency Comment Spec In Lab Daphne Shahid MD HEMATOLOGY ORDERABLES Performing Organization Address City/State/ZIP [place] [address] (ABNORMAL) Hemogram (07/05/2017 4:55 PM EST) Analysis Performed At Patho logist Time Signature WBC 6.8 4.0 - 9.5 [facility] x10(3)/[facility] LABORATORY RBC 4.67 4.58 - [place] 5.54 [facility] x10(6)/[facility] LABORATORY Hemoglobin 14.0 13.7 - [place] 16.5 gm/dL [facility] LABORATORY Hematocrit 41.0 40.5 - [place] 48.5 % [facility] LABORATORY MCV 87.8 82.9 - [facility] 93.1 [facility] LABORATORY MCH 30.0 27.5 - [place] 32.1 pg [facility] LABORATORY MCHC 34.1 32.0 - [place] [facility] 35.7 gm/dL [facility] LABORATORY Platelets 197 145 - 357 [facility] x10(3)/[facility] LABORATORY RDWSD 46.4 (H) 36.0 - [place] 45.0 [facility] LABORATORY RDWCV 14.5 (H) 11.4 - [facility] 13.8 % [facility] LABORATORY MPV 9.7 7.6 - 12.9 [facility] LABORATORY nRBC % Auto 0.0 % [facility] LABORATORY nRBC Abs Auto 0.000 0.000 - [facility] 0.000 [facility] x10(3)/[facility] LABORATORY Specimen Anatomical Collection Method Collection Time Receive d Time (Source) Location / / Volume Laterality Blood specimen 07/05/2017 4:55 PM 017 5:24 (specimen) EST PM EST Resulting Agency Comment Spec In Lab Daphne Shahid MD HEMATOLOGY ORDERABLES Performing Organization Address City/State/ZIP [place] [address] (ABNORMAL) Cardiac Enzymes (LEB/CGP) (07/05/2017 4:55 PM EST) P athologist Signature Troponin-T 1.69 (H) 0.00 - [place] 0.00 ng/mL [facility] LABORATORY Comment: The 99th percentile for Troponin T is le ss than 0.01 ng/mL, any detectable cTnT concentration using this assay should be considered elevated. According to the third universal definit ion of myocardial infarction the following criteria with a clinical prese ntation consistent with acute myocardial ischemia meets the diagnosis for a myocardial infarction (ME). Detection of a rise and/or fall of [...] additional sample may be indicated. Reference: Third [place] Definition of Myocardial Infarction. Journal of the [place] College [employer]iology 2012;60:1581-98 CK, Total 191 0 - 200 unit/L [facility] LABORATORY Specimen Anatomical Collection Method Collection Time Receive d Time (Source) Location / / Volume Laterality Blood specimen 07/05/2017 4:55 PM 017 5:56 (specimen) EST PM EST Resulting Agency Comment Spec In Lab Daphne Shahid MD CHEMISTRY ORDERABLES Performing Organization Address City/State/ZIP Code Phon e Number [address] (ABNORMAL) pro-Brain Natriuretic Peptide (07/05/2017 4:55 PM EST) P athologist Signature ProBNP 1,598 (H) <=125 [facility] pg/mL [facility] LABORATORY Specimen Anatomical Collection Method Collection Time Receive d Time (Source) Location / / Volume Laterality Blood specimen 07/05/2017 4:55 PM 017 5:24 (specimen) EST PM EST Resulting Agency Comment Spec In Lab Daphne Shahid MD CHEMISTRY ORDERABLES Performing Organization Address City/[facility]/ZIP Code Phon e Number [address] Magnesium (07/05/2017 4:55 PM EST) athologist Signature Magnesium 0.78 0.69 - 1.07 [facility] mmol/L [facility] LABORATORY Specimen Anatomical Collection Method Collection Time Receive d Time (Source) Location / / Volume Laterality Blood specimen 07/05/2017 4:55 PM 017 5:24 (specimen) EST PM EST Resulting Agency Comment Spec In Lab Daphne Shahid MD CHEMISTRY ORDERABLES Performing Organization Address City/State/ZIP [place] [address] (ABNORMAL) Basic Metabolic Panel (non-fasting) (07/05/2017 4:55 PM EST) athologist Signature Glucose Lvl 230 (H) 65 - 199 [facility] mg/dL [facility] LABORATORY Comment: Diabetes: >=200 mg/dL plus symp toms BUN 19 10 - 20 mg/dL [facility] LABORATORY Creatinine 1.04 0.80 - 1.50 mg/dL [facility] LABORATORY Sodium 142 135 - 145 [...] Anion Gap 14 5 - 15 mmol/L [facility] LABORATORY Calcium 8.5 8.5 - 10.5 mg/dL [facility]OR[facility] Estimated GFR >60 >=60 [facility] Comment: The reported eGFR should be multiplied b y 1.2 for patients. The MDRD is not an appropriate measure o f renal function for patients with body mass extremes or in patients with acute kidney failure. http://Mojostreet/DHnkdep http://Mojostreet/DHMCnkf Specimen Anatomical Collection Method Collection Time Receive d Time (Source) Location / / Volume Laterality Blood specimen 07/05/2017 4:55 PM 017 5:24 (specimen) EST PM EST Resulting Agency Comment Spec In Lab Daphne Shahid MD CHEMISTRY ORDERABLES Performing Organization Address City/[facility]/ZIP [place] [address] (ABNORMAL) APTT (07/05/2017 4:55 PM EST) P athologist Signature PTT 41 (H) 25 - 35 sec [facility] Comment: The recommended therapeutic range for fu ll dose, unfractionated heparin at [facility] is 80 ? 114 seconds. The use [...] Shahid MD HEMATOLOGY ORDERABLES Performing Organization Address City/[facility]/ZIP [place] [address] (ABNORMAL) POCT Glucose (07/05/2017 4:53 PM EST) P athologist Signature POC Glucose 208 (H) 65 - 199 [facility] mg/dL [facility] LABORATORY Comment: Supplemental ranges: <140 mg/dL before meals <180 mg/dL all other times of the day Specimen Anatomical Collection Method Collection Time Receive d Time (Source) Location / / Volume Laterality Blood specimen 07/05/2017 4:53 PM 017 4:53 (specimen) EST PM EST Daphne Shahid MD POINT OF CARE TEST ORDERABLE S Performing Organization Address City/[facility]/ZIP [place] [address] EKG 12 Lead (07/05/2017 4:32 PM EST) Component Value Ref Range Test Analysis Performed Pathologis t Method Time At Signature Ventricular rate 97 BPM MUSE SYSTEM Atrial Rate 97 BPM MUSE SYSTEM P-R Interval 148 ms MUSE SYSTEM QRS Duration 96 ms MUSE SYSTEM Q-T Interval 364 ms MUSE SYSTEM QTC Calculated 462 ms MUSE SYSTEM (Bezet) Calculated P [place] 48 degrees MUSE SYSTEM Calculated R [place] -33 degrees MUSE SYSTEM Calculated T [place] 98 degrees MUSE SYSTEM INTERPRETATION Normal sinus [...] Coronary atherosclerosis of unspecified type of vessel, [place] or graft Cardiomyopathy, ischemic Other specified forms [...] 10 mg, Rectal, DAILY PRN, Starting on Wed07/10/17 at 0000, Until Wed07/14/17 at 1639, Constipation, [...] in dextrose 5% 250 mL EST infusion (MACHINE UMBRELLA TIPPER) CONTINUOUS PRN, Starting on Wed07/05/17 at 1837, [...] RN) 0143 (New Bag - Provider: Denice Jacobson RN)0213 (Stopped - Provider: Denice Jacobson RN)0932 (New Bag - Provider: Myrna Young RN)1002 (Stopped - Provider: Mynra Young RN) 2 [...] Luther RN) 0901 (Given - Provider: Em Jones RN) 65 Units, Subcutaneous, EVERY 24 HOURS, First [...] not met)1307 (Given - Provider: Em Jones, RN)1600 (Not Given - Provider: Em Jones [...] Em Jones, RN)1307 (Given - Provider: Em Jones RN) [...] VAMSI) 0530 (Gi cody - Provider: Denice Jacobson [...] VAMSI) 0532 (Given - Provider: Denice Jacobson, RN)1330 (Not Given - Provider: Myrna Young [...] VAMSI)1200 (Rate/Dose Change - Provider: More Luther RN)1950 [...] o 2018 (New Bag - Provider: Ale Rangel RN) rder maintenance dose 0.5 mg/min. Use in-line [...]
Routine documented in this encounter Care Teams Customer Sales Representative Relationship Specialty Start Date End Date Lovely Vicente MD PCP - General 04/16/[address] [place] [address] documented as of this encounter
--- OUTSIDE RECORDS SUMMARY | 2022-02-20 01:49 | XMS_ITS | Encounter Summary ---
:1945 Author Organization [facility] [place] [address] Care Team Providers Name Role Phone Lovely Vicente MD Primary Care Provider Reason for Visit Reason Onset Date Comments Pre Procedure Call 12/02/2016 Encounter Details Date Type Department Care Team Description 12/02/2016 Telephone Dermatology at [facility] Mira James LPN Pre Procedure Call [address] [place] [address] Social History Tobacco Use Types Packs/Day [...] Visit Cardiology Vitaliy Nobles MD [facility] ER CARDIOLOGY [place], [place] [address] (Wo rk) documented as of this encounter Visit Diagnoses Not on filedocumented in this encounter Care Teams Community Health Representative Relationship Specialty Start Date End Date Lovely Vicente MD PCP - General 04/16/[address] [place] [address] documented as of this encounter
--- OUTSIDE RECORDS SUMMARY | 2022-02-20 01:49 | XMS_ITS | Encounter Summary ---
:1945 Author Organization [facility] [place] [address] Care Team Providers Name Role Phone Lovely Vicente MD Primary Care Provider Reason for Visit Reason Comments Follow-up Encounter Details Date Type Department Care Team Description 06/03/2017 Office Visit Dermatology at Rigoberto Forman benign nevi; Abdelrahman HOOPER MD History of melanoma; [address] [facility] History of dysplastic nevus; [place] [address] Skin exam for malignant neoplasm [phone] [facility] [place], [place] [address] Social History Tobacco Use Types [...] Garcia MD Section of Dermatology [facility] documented in this encounter Plan of Treatment Upcoming Encounters Date Type Specialty Care Team Description 03/26/2022 Office Visit Cardiology Vitaliy Nobles MD [facility] ER CARDIOLOGY [place], [place] [address] (Wo rk) documented as of [...] skin documented in this encounter Care Teams Cold Roller Relationship Specialty Start Date End Date Lovely Vicente MD PCP - General 04/16/[address] [place] [address] documented as of this encounter
--- OUTSIDE RECORDS SUMMARY | 2022-02-20 01:49 | XMS_ITS | Encounter Summary ---
:1945 [place] [address] Care Team Providers Name Role Phone Lovely Vicente MD Primary Care Provider Reason for Visit Reason Onset Date Comments Other 12/09/2016 RESULTS Encounter Details Date Type Department Care Team Description 12/09/2016 Telephone [facility] Halima Cadet MD Other (RESULTS) [address] [facility] [place] [address] [facility] [phone] [place], [place] [address] (Wo rk) Social History Tobacco [...] back. She can be reached back at [phone] documented in this encounter Plan of Treatment Upcoming Encounters Date Type Specialty Care Team Description 03/26/2022 Office Visit Cardiology Vitaliy Nobles MD [facility] ER CARDIOLOGY [place], [place] [address] (Wo rk) documented as of this encounter Visit Diagnoses Not on filedocumented in this encounter Care Teams Floral Department Specialist Relationship Specialty Start Date End Date Lovely Vicente MD PCP - General 04/16/[address] [place] [address] documented as of this encounter
--- OUTSIDE RECORDS SUMMARY | 2022-02-20 01:49 | XMS_ITS | Encounter Summary ---
:1945 Author Organization [facility] [place] [address] Care Team Providers Name Role Phone Lovely Vicente MD Primary Care Provider Reason for Visit Reason Comments Nevus excision dysplastic nevus mi d upper abdomen Encounter Details Date Type Department Care Team Description 12/03/2016 Procedure visit Dermatology at Halima Dubois Dysplastic nevus of Road MD Adrián trunk [address] [place] [address] [facility] [address] [facility] [phone] [address]-[place]OL[place] [address] Social History Tobacco Use Types Packs/Day Years [...] Halima Cordero MD during the day at [phone] Nurse: Mira [phone] Amy After 5 PM and on weekends, please call the hospital number , and ask for the Cigar Head Stringer traffic control signaler. documented in this encounter Progress Notes Halima Cordero MD - 12/10/2016 5:41 PM EDT Gwendolyn, Excision shows scar, there is no residual of the severely dysplastic nevus. Please notify patient and check on wound healing. Thank you, DTB Halima Cordero MD - 12/03/2016 3:00 PM EDT Images from the original note were not included. Dermatology Procedure note: Attending: Halima Cordero MD Custom Frame Assembler: Mira James LPN Referring MD: Rigoberto Garcia [...] to call the clinic or the on-call firearms specialist over the weekend. ??? Name of Procedure? [...] MD [facility] ER CARDIOLOGY [place], [place] [address] (Wo rk) [...] Test Analysis Performed At [facility] Range Method Time Signature Surgical [id number] ?Location: [facility] Pathology [place] Report The signing pathologist has (i) examined [...] Clinical Diagnosis: Dysplastic nevus, see previous pathology [id number] SPECIMEN PROCESSING A - Labeled/Fixative: Mid-upper abdomen, [...] Organization Address City/State/[place] [address] Specimen to Pathology (NON-OR) (12/03/2016 3:31 PM EDT) Specimen Anatomical Collection Method Collection Time Receive d Time (Source) Location / / Volume Laterality AP Specimen 12/03/2016 3:31 PM 7 6:27 EDT PM [address]T [facility] [facility] - 12/03/2016 6:27 PM EDT Specimen requisition ordered. ??Separate Pathology report to follow Resulting Agency Comment Spec In Lab Halima Cordero MD PATHOLOGY/CYTOLOGY ORDERABLE S Performing Organization Address City/State/[place] [address] documented in this encounter Visit Diagnoses Diagnosis Dysplastic nevus of trunk Benign neoplasm of skin of trunk, except scrotum documented in this encounter Care Teams Senior Accountant Relationship Specialty Start Date End Date Lovely Vicente MD PCP - General 04/16/[address] [place] [address] [address] [place] [address] documented as of this encounter
--- OUTSIDE RECORDS SUMMARY | 2022-02-20 01:49 | XMS_ITS | Encounter Summary ---
:1945 Author Organization [facility] [place] [address] Care Team Providers Name Role Phone Lovely Vicente MD Primary Care Provider Reason for Visit Reason Onset Date Comments Medication Refill 12/24/2016 Encounter Details Date Type Department Care Team Description 12/24/2016 Refill Endocrinology at [facility] Luz Stallings MD [facility] [place] [address] ENDOCRINOLOGY DEPT [phone] [place], [place] [address] (Wo rk) Social History Tobacco [...] Cardiology Vitaliy Nobles MD [facility] ER [address] [place], [place] [address] (Wo rk) documented as of this encounter Visit Diagnoses Not on filedocumented in this encounter Care Teams Construction Technician Relationship Specialty Start Date End Date Lovely Vicente MD PCP - General 04/16/[address] [place] [address] documented as of this encounter
--- OUTSIDE RECORDS SUMMARY | 2022-02-20 01:50 | XMS_ITS | Encounter Summary ---
:1945 Author Organization [facility] [place] [address] Care Team Providers Name Role Phone Angela Holliday APRN Primary Care Provider Encounter Details Date Type Department Care Team Description 03/28/2013 Surgery Main Operating Room Mesha Mcknight, THYROIDECTOMY, [facility] Siddiqui [place] [address] [place] [address] [phone] (Wo rk) Social History Tobacco Use Types [...] please call the General Surgery nurse at [phone], since this may mean that you need morecalcium. Follow-up Appointment: Will be scheduled with Dr. Mcknight in 6 weeks Date and time as well as any required labs will be mailed to you Please call [phone] to confirm date and time of your [...] by calcium supplementation. Phone number for questions: [phone] before 5 PM weekdays [phone] after 5 PM and on weekends/holidays Please follow up with Urology as per their recommendations for Bob removal AttachmentsThe following attachments cannot be sent through Care Everywhere. THYROIDECTOMY: WHAT TO EXPECT AT HOME (SYRIAC)URINARY CATHETER CARE: AFTER YOUR VISIT (SYRIAC)documented in this encounter Medications at Time of Discharge Medication Sig Dispensed Refills Start Date End Date aspirin 81 mg EC tablet Take 81 mg by mouth 0 01/16/2019 daily. lisinopril Take 20 mg by mouth 0 07/14 (PRINIVIL;ZESTRIL) 20 mg daily. tablet metFORMIN (GLUCOPHAGE) Take 850 mg by mouth 0 07/14/2017 850 mg tablet 2 times daily (with meals). Takes 1 tab in morning, 2 tabs in evening levothyroxine (SYNTHROID) Take 137 mcg by 30 tablet 2 03/2904/30/2014 137 mcg tablet mouth every morning. OXYcodone (ROXICODONE) 5 Take 1-2 tablets by 30 tablet 0 05/16/2013 mg immediate release mouth every 4 hours tablet as needed for Pain. CA CITRATE/MGOX/VIT Take by mouth. 0 1 D3/B6/MIN (CALCIUM CITRATE PLUS ORAL) Cholecalciferol, Vitamin Take 1,000 Units by 0 [...] is a 68 y.o. male presents to [facility] today for total thyroidectomy. See [...] Willams MD - 03/28/2013 3:43 PM EDT [facility] Operative Note Patient Name: Gregory Fatima : [id number] MR#: [id number] Case Date: 03/28/2013 Surgeon: Surgeon(s) and Role: [...] patient was extubated and taken to the [facility] in stable condition. At the [...] Operative Note Patient Name: Gregory Fatima : [id number] MR#: [id number] Case Date: 03/28/2013 Surgeon: Surgeon(s) and Role: [...] Nobles MD [facility] CARDIOLOGY [place], [place] [address] (Wo rk) documented [...] City/[facility]/[place] [address] CERNER MILLENNIUM (ABNORMAL) POCT [...] City/[facility]/[place] [address] CERNER MILLENNIUM (ABNORMAL) POCT Glucose (03/29/2013 1:26 AM EDT) athologist Signature POC Glucose 255 (H) 60 - 199 CERNER mg/dL MILLENNIUM Comment: Supplemental ranges: <110 mg/dL before meals <200 mg/dL all other times of the day Specimen Anatomical Collection Method Collection Time Receive d Time (Source) Location / / Volume Laterality Blood specimen 03/29/2013 1:26 AM 09/04/2 013 1:26 (specimen) EDT AM EDT Mesha Mcknight MD POINT OF CARE TEST ORDERABLE S Performing Organization Address City/[facility]/ZIP Code Phon e Number [address] CERNER MILLENNIUM (ABNORMAL) POCT Glucose (03/28/2013 11:21 PM EDT) P athologist Signature POC Glucose 284 (H) 60 [...] City/[facility]/ZIP Code Phon e Number [address] CERNER MILLENNIUM (ABNORMAL) POCT Glucose (03/28/2013 8:57 PM EDT) P athologist Signature POC Glucose 273 (H) 60 [...] City/[facility]/ZIP Code Phon e Number [address] CERNER MILLENNIUM (ABNORMAL) POCT Glucose (03/28/2013 6:23 PM EDT) P athologist Signature POC Glucose 322 (H) 60 [...] City/[facility]/[place] [address] CERNER MILLENNIUM (ABNORMAL) POCT Glucose (03/28/2013 4:04 PM EDT) P athologist Signature POC Glucose 317 (H) 60 [...] City/[facility]/[place] [address] CERNER MILLENNIUM (ABNORMAL) POCT Glucose (03/28/2013 2:49 PM EDT) P athologist Signature POC Glucose 319 (H) 60 [...] S Performing Organization Address City/[facility]/ZIP [facility] [place] [place] [address] CERNER MILLENNIUM Specimen to Pathology (surgical or derm) (03/28/2013 12:14 PM EDT) Specimen Anatomical Collection Method Collection Time Receive d Time (Source) Location / / Volume Laterality AP Specimen 03/28/2013 12:14 03/28/2013 PM EDT 12:14 PM EDT Narrative CERNER MILLENNIUM - 03/28/2013 12:14 PM EDT Specimen requisition ordered. ??Separate Pathology report to follow Mesha Mcknight MD PATHOLOGY/CYTOLOGY ORDERABLE S Performing Organization Address City/State/ZIP [place] [address] RAKESH [facility] Pathology Addendum Report (03/28/2013 12:03 PM EDT) Component Value Ref Test Analysis Performed At [facility] Range Method Time Signature Addendum [facility] Report ? [facility] ? Provider: ?? MESHA MCKNIGHT Pt. Name: ?? GREGORY FATIMA ? Acc #: ?[id number] ?Pt. MRN: ?[id number] ? Col Date: ?? 03/28/2013 ?/Sex: ?1945,(68 years),Male ? Rec Date: ?? 03/28/2013 ?LOC: ?[facility] ? ADDENDUM REPORT ? ---Addendum Discussion--- ? This addendum documents the information c onveyed during intraoperative ? gross consultation. T he thyroid tissue received for Part A was sectioned, ? and no suspicious nodules were identified octavia gr gross intraoperative ? consultation; therefore, no frozen [...] MD PATHOLOGY/CYTOLOGY ORDERABLE S Performing Organization Address [facility]/State/[place] [address] CERNER [facility] Surgical Pathology Report (03/28/2013 12:03 PM EDT) Component Value Ref Test Analysis Performed At [facility] Range Method Time Signature Surgical [facility] Pathology ? [facility] Report ? Provider: ?? MESHA MCKNIGHT Pt. Name: ?? GREGORY FATIMA ? Acc #: ?[id number] ?Pt. MRN: ?[id number] ? Col Date: ?? 03/28/2013 ?/Sex: ?1945,(68 [...] areas of hemorrhage and ? calcifications. ? [facility] ? Provider: ?? MESHA MCKNIGHT Pt. Name: ?? GREGORY FATIMA ? Acc #: ?[id number] ?Pt. MRN: ?[id number] ? Col Date: ?? 03/28/2013 ?/Sex: ?1945,(68 years),Male ? Rec Date: ?? 03/28/2013 ?LOC: ?[facility] ? SURGICAL PATHOLOGY ? SECTIONS/PROCESSING: Scalloper sections are subm itted. (R6) ? B [...] MD PATHOLOGY/CYTOLOGY ORDERABLE S Performing Organization Address City/[facility]/ZIP Code Phon e Number [place] [address] [facility] Frozen Section Report (03/28/2013 12:03 PM EDT) Component Value Ref Test Analysis Performed At [facility] Range Method Time Signature Frozen CERNER Section ? [facility] Report ? Provider: ?? MESHA MCKNIGHT Pt. Name: ?? GREGORY FATIMA ? Acc #: ?[id number] ?Pt. MRN: ?[id number] ? Col Date: ?? 03/28/2013 ?/Sex: ?1945,(68 years),Male ? Rec Date: ?? 03/28/2013 ?LOC: ?[facility] ? FROZEN SECTION REPORT ? ---Frozen Section Report--- ? Part A - Intraoperati ve gross consultation was performed. ??The case was ? discussed by phone with Dr. Mcknight, and no frozen ? section was performed. ? 03/31/13 ??Verified by: ??César STRANGE, Ruben Yusuf, [facility] gist ? The attending [facility] gist whose electronic signature appears [...] MD PATHOLOGY/CYTOLOGY ORDERABLE S Performing Organization Address City/[facility]/ZIP Code [place] [address] CERNER atVenuIUM POCT Glucose (03/28/2013 12:00 PM EDT) P athologist Signature POC Glucose 134 60 - 199 [facility] mg/dL [facility] Comment: Supplemental ranges: <110 mg/dL before meals <200 mg/dL all other times of the day Specimen Anatomical Collection Method Collection Time Receive d Time (Source) Location / / Volume Laterality Blood specimen 03/28/2013 12:00 3 (specimen) PM EDT 12:00 PM EDT Mesha Mcknight MD POINT OF CARE TEST ORDERABLE S Performing Organization Address City/State/[place] [address] [facility] Specimen to Pathology (surgical or derm) (03/28/2013 11:58 AM EDT) Specimen Anatomical Collection Method Collection Time Receive d Time (Source) Location / / Volume Laterality AP Specimen 03/28/2013 11:58 03/28/2013 AM EDT 11:58 AM EDT Narrative [facility] - 03/28/2013 11:58 AM EDT Specimen requisition ordered. ??Separate Pathology report to follow Mesha Mcknight MD PATHOLOGY/CYTOLOGY ORDERABLE S Performing Organization Address City/[facility]/[place] [address] [facility] Antibody screen (03/28/2013 9:37 AM EDT) Analysis Performed At Path logist Time Signature Ab Screen Negative [facility] Expires at [id number] [facility] 2358 on: [facility] Specimen Anatomical Collection Method Collection Time Receive d Time (Source) Location / / Volume Laterality Blood specimen 03/28/2013 9:37 AM 013 9:37 (specimen) EDT AM EDT Resulting Agency Comment Spec In Lab Mesha Mcknight MD BLOOD BANK ORDERABLES Performing Organization Address City/[facility]/ZIP Code Phon e Number [address] [facility] ABO/Rh Typing (03/28/2013 9:37 AM EDT) athologist Signature ABORh Type O Pos CERNER MILLENNIUM Specimen Anatomical Collection Method Collection Time Receive d Time (Source) Location / / Volume Laterality Blood specimen 03/28/2013 9:37 AM 013 9:37 (specimen) EDT AM EDT Resulting Agency Comment Spec In Lab Mesha Mcknight MD BLOOD BANK ORDERABLES Performing Organization Address City/State/[place] [address] CERNER MILLENNIUM Differential, Automated (03/28/2013 9:34 AM EDT) P athologist Signature Neutrophils % 69.8 34.0 - [...] HEMATOLOGY ORDERABLES Performing Organization Address City/State/ZIP [place] [address] CERNER MILLENNIUM (ABNORMAL) Basic Metabolic Panel (non-fasting) (03/28/2013 9:34 AM EDT) P athologist Signature Glucose Lvl 105 60 - 199 CERNER mg/dL MILLENNIUM Comment: Diabetes: >=200 mg/dL plus symp toms BUN 11 10 - 20 mg/dL CERNER MILLENNIU M Creatinine 0.94 0.80 - 1.50 mg/dL CERNER MILL ENNIUM Comment: Please note that the pediatric reference intervals supplied above were not validated at [facility]. Results from pediatri c patients [...] Mcknight MD CHEMISTRY ORDERABLES Performing Organization Address City/[facility]/ZIP Code Phon e Number [address] CERNER MILLENNIUM (ABNORMAL) CBC (with Diff) (03/28/2013 9:34 AM EDT) athologist Signature WBC 5.2 4.0 - 10.0 [...] Mcknight MD HEMATOLOGY ORDERABLES Performing Organization Address City/[facility]/ZIP Code Phon e Number [address] CERNER MILLENNIUM POCT Glucose (03/28/2013 9:17 AM EDT) athologist Signature POC Glucose 108 60 - 199 CERNER mg/dL [facility] Comment: Supplemental ranges: <110 mg/dL before meals <200 mg/dL all other times of the day Specimen Anatomical Collection Method Collection Time Receive d Time (Source) Location / / Volume Laterality Blood specimen 03/28/2013 9:17 AM 013 9:17 (specimen) EDT AM EDT Mesha Mcknight MD POINT OF CARE TEST ORDERABLE S Performing Organization Address City/State/[place] [address] RAKESH CARVALHOIUM Specimen to Pathology (surgical or derm) (03/28/2013 8:55 AM EDT) Specimen Anatomical Collection Method Collection Time Receive d Time (Source) Location / / Volume Laterality AP Specimen 03/28/2013 8:55 AM 3 8:54 EDT AM EDT Narrative RAKESH CARVALHOIUM - 03/28/2013 8:55 AM E DT Specimen requisition ordered. ??Separate Pathology report to follow Mesha Mcknight MD PATHOLOGY/CYTOLOGY ORDERABLE S Performing Organization Address City/State/[place] [address] RAKESH WALKER documented in this encounter Visit Diagnoses Not [...] 0900 (Given - Provider: Radha Yao oumar, VAMSI) 2.5 mg, Oral, DAILY, First dose [...] c/o headache) 0738 (Given - Provider: Radha christine RN) 650 mg, Oral, EVERY 4 HOURS PRN, [...] override documented in this encounter Care Teams Steward/Stewardess Lounge Relationship Specialty Start Date End Date Angela Holliday APRN PCP - General 01/25/13 04/15/15 [address] [place] [address] documented as of this encounter
--- OUTSIDE RECORDS SUMMARY | 2022-02-20 01:50 | XMS_ITS | Encounter Summary ---
:1945 Author Organization [facility] [place] [address] Care Team Providers Name Role Phone Angela Holliday APRN Primary Care Provider Encounter Details Date Type Department Care Team Description 03/30/2013 Telephone General Surgery at [facility] Cliff Nevarez, [place] [address] Social History Tobacco Use Types Packs/Day [...] Visit Cardiology Vitaliy Nobles MD [facility] ER CARDIOLOGY [place], [place] [address] (Wo rk) documented as of this encounter Visit Diagnoses Not on filedocumented in this encounter Care Teams Linux Developer Relationship Specialty Start Date End Date Angela Holliday APRN PCP - General 01/25/13 04/15/[address] [place] [address] documented as of this encounter
--- OUTSIDE RECORDS SUMMARY | 2022-02-20 01:50 | XMS_ITS | Encounter Summary ---
:1945 [place] [address] Care Team Providers Name Role Phone Holley Hollidayica STACIE Primary Care Provider Encounter Details Date Type Department Care Team Description 03/28/2013 - [facility]2013 Barbara Gomes MD Dx) [facility] [address] [facility] [phone] Social History Tobacco Use Types Packs/Day Years [...] please call the General Surgery nurse at [phone], since this may mean that you need morecalcium. Follow-up Appointment: Will be scheduled with Dr. Mcknight in 6 weeks Date and time as well as any required labs will be mailed to you Please call [phone] to confirm date and time of your [...] by calcium supplementation. Phone number for questions: [phone] before 5 PM weekdays [phone] after 5 PM and on weekends/holidays Please follow up with Urology as per their recommendations for Bob removal AttachmentsThe following attachments cannot be sent through Care Everywhere. THYROIDECTOMY: WHAT TO EXPECT AT HOME (DUTCH)URINARY CATHETER CARE: AFTER YOUR VISIT (DUTCH)documented in this encounter Medications at Time of [...] is a 68 y.o. male presents to [facility] today for total thyroidectomy. See full [...] Willams MD - 03/28/2013 3:43 PM EDT [facility] Operative Note Patient Name: Gregory Fatima : [id number] MR#: [id number] Case Date: 03/28/2013 Surgeon: Surgeon(s) and Role: [...] patient was extubated and taken to the [facility] in stable condition. At the end [...] Operative Note Patient Name: Gregory Fatima : [id number] MR#: [id number] Case Date: 03/28/2013 Surgeon: Surgeon(s) and Role: [...] Nobles MD [facility] CARDIOLOGY [place], [place] [address] (Wo rk) documented as of [...] S Performing Organization Address City/[facility]/[place] [address] CERNER MILLENNIUM (ABNORMAL) POCT [...] S Performing Organization Address City/[facility]/[place] [address] CERNER MILLENNIUM (ABNORMAL) POCT [...] S Performing Organization Address City/[facility]/ZIP Code Phon e Number [address] CERNER MILLENNIUM (ABNORMAL) POCT [...] S Performing Organization Address City/[facility]/ZIP Code Phon e Number [address] CERNER MILLENNIUM (ABNORMAL) POCT [...] S Performing Organization Address City/[facility]/ZIP Code Phon e Number [address] CERNER MILLENNIUM (ABNORMAL) POCT [...] S Performing Organization Address City/[facility]/[place] [address] CERNER MILLENNIUM (ABNORMAL) POCT [...] S Performing Organization Address City/[facility]/[place] [address] CERNER MILLENNIUM (ABNORMAL) POCT [...] S Performing Organization Address City/[facility]/ZIP [facility] [place] [address] CERNER MILLENNIUM Specimen to [...] Address City/State/ZIP Code [place] [address] RAKESH [facility] Pathology Addendum Report (03/28/2013 12:03 PM EDT) Component Value Ref Test Analysis Performed At [facility] Range Method Time Signature Addendum [facility] Report ? [facility] ? Provider: ?? MESHA MCKNIGHT Pt. Name: ?? GREGORY FATIMA ? Acc #: ?[id number] ?Pt. MRN: ?[id number] ? Col Date: ?? 03/28/2013 ?/Sex: ?1945,(68 [...] MD PATHOLOGY/CYTOLOGY ORDERABLE S Performing Organization Address [facility]/State/[place] [address] [facility] Surgical Pathology Report (03/28/2013 12:03 PM EDT) Component Value Ref Test Analysis Performed At [facility] Range Method Time Signature Surgical [facility] Pathology ? [facility] Report ? Provider: ?? MESHA MCKNIGHT Pt. Name: ?? GREGORY FATIMA ? Acc #: ?[id number] ?Pt. MRN: ?[id number] ? Col Date: ?? 03/28/2013 ?/Sex: ?1945,(68 [...] areas of hemorrhage and ? calcifications. ? [facility] ? Provider: ?? MESHA MCKNIGHT Pt. Name: ?? GREGORY FATIMA ? Acc #: ?[id number] ?Pt. MRN: ?[id number] ? Col Date: ?? 03/28/2013 ?/Sex: ?1945,(68 years),Male ? Rec Date: ?? 03/28/2013 ?LOC: ?[facility] ? SURGICAL PATHOLOGY ? SECTIONS/PROCESSING: Assistant Professor Of Physics sections are subm itted. (R6) ? B [...] MD PATHOLOGY/CYTOLOGY ORDERABLE S Performing Organization Address City/[facility]/ZIP Code Phon e Number [place] [address] [facility] Frozen Section Report (03/28/2013 12:03 PM EDT) Component Value Ref Test Analysis Performed At [facility] Range Method Time Signature Frozen CERNER Section ? [facility] Report ? Provider: ?? MESHA MCKNIGHT Pt. Name: ?? GREGORY FATIMA ? Acc #: ?[id number] ?Pt. MRN: ?[id number] ? Col Date: ?? 03/28/2013 ?/Sex: ?1945,(68 years),Male ? Rec Date: ?? 03/28/2013 ?LOC: ?[facility] ? FROZEN SECTION REPORT ? ---Frozen Section Report--- ? Part A - Intraoperati ve gross consultation was performed. ??The case was ? discussed by phone with Dr. Mcknight, and no frozen ? section was performed. ? 03/31/13 ??Verified by: ??César STRANGE, Ruben Yusuf, [facility] gist ? The attending [facility] gist whose electronic signature appears on [...] MD PATHOLOGY/CYTOLOGY ORDERABLE S Performing Organization Address City/[facility]/ZIP [place] [address] CERNER [employer]IUM POCT Glucose (03/28/2013 12:00 PM EDT) P athologist Signature POC Glucose 134 60 - 199 [facility] mg/dL [facility] Comment: Supplemental ranges: <110 mg/dL before meals <200 mg/dL all other times of the day Specimen Anatomical Collection Method Collection Time Receive d Time (Source) Location / / Volume Laterality Blood specimen 03/28/2013 12:00 3 (specimen) PM EDT 12:00 PM EDT Mesha Mcknight MD POINT OF CARE TEST ORDERABLE S Performing Organization Address City/State/[place] [address] [facility] Specimen to Pathology (surgical or derm) (03/28/2013 11:58 AM EDT) Specimen Anatomical Collection Method Collection Time Receive d Time (Source) Location / / Volume Laterality AP Specimen 03/28/2013 11:58 03/28/2013 AM EDT 11:58 AM EDT Narrative [facility] - 03/28/2013 11:58 AM EDT Specimen requisition ordered. ??Separate Pathology report to follow Mesha Mcknight MD PATHOLOGY/CYTOLOGY ORDERABLE S Performing Organization Address City/[facility]/[place] [address] [facility] Antibody screen (03/28/2013 9:37 AM EDT) Analysis Performed At Path logist Time Signature Ab Screen Negative [facility] Expires at [id number] [facility] 2358 on: [facility] Specimen Anatomical Collection Method Collection Time Receive d Time (Source) Location / / Volume Laterality Blood specimen 03/28/2013 9:37 AM 013 9:37 (specimen) EDT AM EDT Resulting Agency Comment Spec In Lab Mesha Mcknight MD BLOOD BANK ORDERABLES Performing Organization Address City/[facility]/ZIP Code Phon e Number [address] [facility] A[facility]/Rh Typing (03/28/2013 9:37 AM EDT) athologist Signature ABORh Type O Pos CERNER MILLENNIUM Specimen Anatomical Collection Method Collection Time Receive d Time (Source) Location / / Volume Laterality Blood specimen 03/28/2013 9:37 AM 013 9:37 (specimen) EDT AM EDT Resulting Agency Comment Spec In Lab Mesha Mcknight MD BLOOD BANK ORDERABLES Performing Organization Address City/State/[place] [address] CERNER MILLENNIUM Differential, Automated [...] Performing Organization Address City/State/ZIP Code [place] [address] CERNER MILLENNIUM (ABNORMAL) Basic [...] intervals supplied above were not validated at [facility]. Results from pediatri c patients should be [...] Mcknight MD CHEMISTRY ORDERABLES Performing Organization Address City/[facility]/ZIP Code Phon e Number [address] CERNER MILLENNIUM (ABNORMAL) CBC [...] Mcknight MD HEMATOLOGY ORDERABLES Performing Organization Address City/[facility]/ZIP Code Phon e Number [address] CERNER MILLENNIUM POCT Glucose (03/28/2013 9:17 AM EDT) athologist Signature POC Glucose 108 60 - 199 CERNER mg/dL [facility] Comment: Supplemental ranges: <110 mg/dL before meals <200 mg/dL all other times of the day Specimen Anatomical Collection Method Collection Time Receive d Time (Source) Location / / Volume Laterality Blood specimen 03/28/2013 9:17 AM 013 9:17 (specimen) EDT AM EDT Mesha Mcknight MD POINT OF CARE TEST ORDERABLE S Performing Organization Address City/State/[place] [address] [facility] Specimen to Pathology (surgical or derm) [...] Organization Address City/State/[place] [address] RAKESH WALKER documented in [...] RN) 0900 (Given - Provider: Radha Yao [facility], VAMSI) 2.5 mg, Oral, DAILY, First dose [...] Breaux RN) 0900 (Given - Provider: Radha christine, VAMSI) 25 mg, Oral, 2 TIMES DAILY, [...] Gracia RN) 0900 (Given - Provider: Radha christine, VAMSI) 20 mg, Oral, DAILY, First dose on [...] c/o headache) 0738 (Given - Provider: Radha christine, VAMSI) 650 mg, Oral, EVERY 4 HOURS [...] mg (CANCELED) 1336 (Given - Provider: Cami Baxter, VAMSI)1341 (Given - Provider: Angela Breaux RN)1420 (Given - Provider: Cami Baxter, VAMSI) 0.2-0.4 mg, Intravenous, EVERY 5 MIN PRN [...] mg (CANCELED) 1337 (Given - Provider: Cami Baxter RN) 10 mg, Intravenous, EVERY 1 HOUR [...] override documented in this encounter Care Teams Labor Union Business Representative Relationship Specialty Start Date End Date Angela Holliday APRN PCP - General 01/25/13 04/15/[address] [place] [address] documented as of this encounter
--- OUTSIDE RECORDS SUMMARY | 2022-02-20 01:50 | XMS_ITS | Encounter Summary ---
:1945 Author Organization [facility] [place] [address] Care Team Providers Name Role Phone Angela Holliday APRN Primary Care Provider Reason for Visit Reason Comments Benign Prostatic Hypertrophy Encounter Details Date Type Department Care Team Description 11/28/2013 Follow-Up [facility]rology at [facility] Blade Smith, Urinary retention (Primary D x); [facility] BPH (benign prostatic hyperplasia) [place] [address] UROLOGY DEPT [place], [place] [address] (Wo rk) Social History [...] Cardiology Vitaliy Nobles MD [facility] ER CARDIOLOGY [place] [address] (Wo rk) documented as of this encounter [...] Organization Address City/State/[place] [address] [facility] documented in this encounter Visit Diagnoses Diagnosis Urinary retention - Primary Retention of urine, unspecified BPH (benign prostatic hyperplasia) Unspecified hyperplasia of prostate with out urinary obstruction and other lower urinary tract symptoms (LUTS) documented in this encounter Care Teams Feather Sawyer Relationship Specialty Start Date End Date Angela Holliday APRN PCP - General 01/25/13 04/15/[address] [place] [address] documented as of this encounter
--- OUTSIDE RECORDS SUMMARY | 2022-02-20 01:50 | XMS_ITS | Encounter Summary ---
:1945 Author Organization [place] [address] Care Team Providers Name Role Phone Lovely Vicente MD Primary Care Provider Reason for Visit Reason Comments Medication Refill Encounter Details Date Type Department Care Team Description 05/10/2015 Refill Endocrinology at [facility] Rosalind Covarrubias, [facility] [place] [address] [facility] [phone] ENDOCRINOLOGY [place], [place] [address] (Wo rk) Social History Tobacco [...] MD [facility] ER CARDIOLOGY [place], [place] [address] (Wo rk) documented as of this encounter Visit Diagnoses Not on filedocumented in this encounter Care Teams Overhead Crane Inspector Relationship Specialty Start Date End Date Lovely Vicente MD PCP - General 04/16/[address] [place] [address] documented as of this encounter
--- OUTSIDE RECORDS SUMMARY | 2022-02-20 01:50 | XMS_ITS | Encounter Summary ---
:1945 Author Organization [facility] [place] [address] Care Team Providers Name Role Phone Angela Holliday APRN Primary Care Provider Reason for Visit Reason Onset Date Comments Other 03/30/2013 blood in catheter ba g Encounter Details Date Type Department Care Team Description 03/30/2013 Telephone General Surgery at [facility] Janneth Sharma, Other (blood in [facility] RN catheter bag) [place] [address] Social History Tobacco Use Types Packs/Day [...] Vitaliy Nobles MD [facility] ER CARDIOLOGY [place], [place] [address] (Wo rk) documented as of this encounter Visit Diagnoses Not on filedocumented in this encounter Care Teams Associate Of Science In Nursing Relationship Specialty Start Date End Date Angela Holliday APRN PCP - General 01/25/13 04/15/[address] [place] [address] documented as of this encounter
--- OUTSIDE RECORDS SUMMARY | 2022-02-20 01:50 | XMS_ITS | Encounter Summary ---
:1945 Author Organization [facility] [place] [address] Care Team Providers Name Role Phone MiyaLokeshAngela STACIE Primary Care Provider Reason for Visit Reason Onset Date Comments Post-op Problem 04/05/2013 voiding trial Encounter Details Date Type Department Care Team Description 04/05/2013 Telephone Urology at [facility] Blade Smith, Post-op Problem [facility] (voiding trial) [place] [address] UROLOGY DEPT [place] [id number] (Wo rk) Social History Tobacco Use Types [...] MD [facility] CARDIOLOGY [place], [place] [address] (Wo rk) documented as of this encounter Visit Diagnoses Not on filedocumented in this encounter Care Teams Academic Dean Relationship Specialty Start Date End Date Angela Holliday APRN PCP - General 01/25/13 04/15/[address] [place] [address] documented as of this encounter
--- OUTSIDE RECORDS SUMMARY | 2022-02-20 01:50 | XMS_ITS | Encounter Summary ---
:1945 Author Organization [facility] [place] [address] Care Team Providers Name Role Phone Angela Holliday APRN Primary Care Provider Encounter Details Date Type Department Care Team Description 04/30/2014 Orders Only Endocrinology at [facility] Albertina Palmer, Thyroid cancer [facility] Jorge Boyer MD ([place]) [place] [address] [facility] [phone] CENTER ENDOCRINOLOGY DEPT [place], [place] [address] Social History Tobacco Use Types [...] MD [facility] ER CARDIOLOGY [place], [place] [address] (Wo rk) documented as of this encounter Visit Diagnoses Diagnosis Thyroid cancer - Primary Malignant neoplasm of thyroid gland documented in this encounter Care Teams Curator [employer] Relationship Specialty Start Date End Date Angela Holliday APRN PCP - General 01/25/13 04/15/[address] [place] [address] documented as of this encounter
--- OUTSIDE RECORDS SUMMARY | 2022-02-20 01:50 | XMS_ITS | Encounter Summary ---
:1945 Author Organization [facility] [place] [address] Care Team Providers Name Role Phone Lovely Vicente MD Primary Care Provider Encounter Details Date Type Department Care Team Description 09/03/2016 Laboratory Appointment Lab at [facility] Hx of [facility] [place] [phone] Social History Tobacco Use Types Packs/Day Years [...] [facility] ER CARDIOLOGY [place], [place] [address] (Wo rk) documented as of [...] EST) P athologist Signature Thyroglobulin <0.4 <=54.9 [facility] ng/mL [facility] Comment: Interpret with caution. Tg levels may be unreliable and falsely low in TgAb positive samples (TgAb <20 is consistent with TgAb negativity). Serial TgAb measurements may be valuable as a surrog ate tumor marker test and should be considered (Mau SHARIF and [place] PAS[place]AL Thy roid 2003;13:1-126) A [...] BR et al. J Clin Endo Metab 1999;84:0264-2261). Assay performed using the DPC Immulite T g immunometric assay. (lowest detection limit is <0.4 ng/ml). Thyroglob Ab <20.0 0.0 - 40.0 IU/mL [facility] Comment: Assay performed is [...] Organization Address City/State/[place] [address] TSH (09/03/2016 11:07 AM EST) P athologist Signature TSH 3.01 0.27 - 4.20 [facility] mcIU/mL [facility] Specimen Anatomical Collection Method Collection Time Receive d Time (Source) Location / / Volume Laterality Blood specimen 09/03/2016 11:07 7 (specimen) AM EST 11:22 AM EST Resulting Agency Comment Spec In Lab Luz Prescott MD CHEMISTRY ORDERABLES Performing Organization Address City/State/[place] [address] documented in this encounter Visit Diagnoses Diagnosis Hx of papillary thyroid carcinoma Personal history of malignant neoplasm o f thyroid documented in this encounter Care Teams Floorhand Relationship Specialty Start Date End Date Lovely Vicente MD PCP - General 04/16/[address] [place] [address] documented as of this encounter
--- OUTSIDE RECORDS SUMMARY | 2022-02-20 01:50 | XMS_ITS | Encounter Summary ---
:1945 Author Organization [facility] [place] [address] Care Team Providers Name Role Phone Lovely Vicente MD Primary Care Provider Encounter Details Date Type Department Care Team Description 07/10/2016 Telephone Dermatology at [facility] Rigoberto White III, [address] [place] [address] [facility] [phone] [facility] MAR[facility]-[place], [place] [address] (Wo rk) Social History Tobacco [...] Visit Cardiology Vitaliy Nobles MD [facility] ER CARDIOLOGY [place], [place] [address] (Wo rk) documented as of this encounter Visit Diagnoses Not on filedocumented in this encounter Care Teams Electromechanical Equipment Assembler Relationship Specialty Start Date End Date Lovely Vicente MD PCP - General 04/16/[address] [place] [address] documented as of this encounter
--- OUTSIDE RECORDS SUMMARY | 2022-02-20 01:50 | XMS_ITS | Encounter Summary ---
:1945 Author Organization [facility] [place] [address] Care Team Providers Name Role Phone MiyaLokeshAngela STACIE Primary Care Provider Encounter Details Date Type Department Care Team Description 01/16/2014 Hospital Encounter Gastroenterology at [facility] Nohemi Jaimes, [facility] [place] [address] [facility] [phone] [facility] [place], [place] [address] Social History Tobacco Use Types [...] you need to be checked. [facility] [phone] 8a-5p Same Day Endo [phone] 7a-8p Otherwise contact [phone] and ask to speak to the travel clerk almond pan finisher Follow up care is a [place] part [...] Date End Date aspirin 81 mg EC Take 81 mg by mouth 0 01/16/2019 tablet daily. lisinopril Take 20 mg by mouth 0 07/14 (PRINIVIL;ZESTRIL) 20 daily. mg tablet metFORMIN (GLUCOPHAGE) Take 850 mg by mouth 2 0 07/14/2017 850 mg tablet times daily (with meals). Takes 1 tab in morning, 2 tabs in evening UNABLE TO FIND Inject 24 Units 0 [...] 1 D3/B6/MIN (CALCIUM CITRATE PLUS ORAL) Cholecalciferol, Take 1,000 Units by 0 06/05/2015 [...] as of this encounter H&P Notes Nohemi Jaimes MD - 01/16/2014 8:53 AM EDT Gastroenterology [...] 2:40 PM EDT Op Note - Nohemi Jaimes MD - 01/16/2014 9:49 AM EDT [facility] Operative Note Patient Name: Gregory Fatima : [id number] MR#: [id number] Case Date: 01/16/2014 Surgeon: Surgeon(s) and Role: * Nohemi Jaimes MD - Primary Preoperative diagnosis: 5 yr surv. Full procedure note is documented under the Procedure section of eDH. documented in this encounter Plan of Treatment Upcoming Encounters Date Type Specialty Care Team Description 03/26/2022 Office Visit Cardiology Vitaliy Nobles MD [facility] ER CARDIOLOGY [place] [address] (Wo rk) documented as of this encounter [...] Surgical Pathology Report (01/16/2014 9:53 AM EDT) [facility] Method Time Signature Surgical CERNER Pathology ? [facility] Report ? Provider: ?? SHREE, NOHEMI Gonzalez ?Pt. Name: ?? MALICKEliseo RT, GREGORY E ? Acc #: ?[id number] ?Pt. MRN: ?[id number] ? Col Date: ?? 4 ? /Sex: [...] Volume Laterality 01/16/2014 9:53 AM EDT Nohemi Jaimes MD PATHOLOGY/CYTOLOGY ORDERABLE S Performing Organization Address [facility] Phon e Number [address] CERNER MILLENNIUM Specimen to Pathology (surgical or derm) (01/16/2014 9:53 AM EDT) Specimen Anatomical Collection Method Collection Time Receive d Time (Source) Location / / Volume Laterality AP Specimen 01/16/2014 9:53 AM 4 9:53 EDT AM EDT Narrative CERNER MILLENNIUM - 01/16/2014 9:53 AM E DT Specimen requisition ordered. ??Separate Pathology report to follow Nohemi Jaimes MD PATHOLOGY/CYTOLOGY ORDERABLE S Performing Organization Address [facility] Phon e Number [address] CERNER MILLENNIUM Specimen to Pathology (surgical or derm) (01/16/2014 9:53 AM EDT) Specimen Anatomical Collection Method Collection Time Receive d Time (Source) Location / / Volume Laterality AP Specimen 01/16/2014 9:53 AM 4 9:53 EDT AM EDT Narrative CERNER MILLENNIUM - 01/16/2014 9:53 AM E DT Specimen requisition ordered. ??Separate Pathology report to follow Nohemi Jaimes MD PATHOLOGY/CYTOLOGY ORDERABLE S Performing Organization Address City/State/ZIP Code [place] [address] [facility] (01/16/2014 7:25 AM EDT) [facility] Method Time Signature COLONOSCOPY [facility] Endoscopy Patient Name: Gregory Fatima ? Procedure Date: 01/16/2014 7:25 AM ? N: [id number] ? Date of : 1945 ? Age: 68 ? Order #: [id number] ? Procedure: ? Colonoscopy Indications: ? High risk colon cancer surveillance : ? 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 dm on metformin with bs ~ 110 this ? am,s/p melanoma years ago, os a, ? goiter s/p surgery, p Providers: ? Nohemi Jamies MD, Blanca xiong, ? RN, Jacquie Ren[place] RN Referring MD: ?Angela Holliday MD Medicines: ? Midazolam 4.5 mg IV, [...] to primary care phys ician. ? Nohemi F Butterly, MD 01/16/2014 10:04 AM This report has been signed electronically. Number of Addenda: 0 Note Initiated On: 01/16/2014 7:25 AM Specimen (Source) Anatomical Collection Method Collection Time Re ceived Time Location / / Volume Laterality 01/16/2014 7:25 AM EDT Angela Holliday APRN GENERAL SURGICAL ORDERABLES Performing Organization Address [...] Samuel, RN)0911 (Given - Provider: Blanca Samuel, VAMSI)0914 (Given - Provider: Blanca Samuel, RN) ONCE PRN, Starting 01/16/14 at 0856, Until 01/16/14 at 1036, Sleep, Intra- Operative (Intra-Procedure), Routine documented in this encounter Care Teams Tosser Relationship Specialty Start Date End Date Angela Holliday APRN PCP - General 01/25/13 04/15/15 [address] [place] [address] documented as of this encounter
--- OUTSIDE RECORDS SUMMARY | 2022-02-20 01:50 | XMS_ITS | Encounter Summary ---
:1945 Author Organization [facility] [place] [address] Care Team Providers Name Role Phone Angela Holliday APRN Primary Care Provider Encounter Details Date Type Department Care Team Description 04/04/2013 Orders Only General Surgery at [facility] thyroid [facility] Eliseo carcinoma (Primary Dx) [facility] [place] [address] GENERAL SURGERY [phone] [place], [place] [address] Social History Tobacco Use Types [...] Nobles MD [facility] ER CARDIOLOGY [place], [place] [address] (Wo rk) documented as of this encounter Visit Diagnoses Diagnosis Papillary thyroid carcinoma - Primary Malignant neoplasm of thyroid gland documented in this encounter Care Teams Database Dba Relationship Specialty Start Date End Date Angela Holliday APRN PCP - General 01/25/13 04/15/[address] [place] [id number] documented as of this encounter
--- OUTSIDE RECORDS SUMMARY | 2022-02-20 01:50 | XMS_ITS | Encounter Summary ---
:1945 Author Organization [facility] [place] [address] Care Team Providers Name Role Phone Lovely Vicente MD Primary Care Provider Reason for Visit Reason Comments Skin Check Encounter Details Date Type Department Care Team Description 04/16/2015 Follow-Up Dermatology at [facility] x of melanoma of skin; Abdelrahman HOOPER MD Multiple benign nevi [address] [place] [address] [facility] [place], [place] [address] (Wo rk) Social History Tobacco [...] COMPACT TEST) Strip by [facility]Non- Drug; Combo Route) route 2 times daily. [...] Vitaliy Nobles MD [facility] ER CARDIOLOGY [place], [place] [address] (Wo rk) documented as of this encounter Visit Diagnoses Diagnosis Hx of melanoma of skin Personal history of malignant melanoma o f skin Multiple benign nevi Benign neoplasm of skin, site unspecifie d documented in this encounter Care Teams Construction Helper Relationship Specialty Start Date End Date Lovely Vicente MD PCP - General 04/16/[address] [place] [address] documented as of this encounter
--- OUTSIDE RECORDS SUMMARY | 2022-02-20 01:50 | XMS_ITS | Encounter Summary ---
:1945 Author Organization [facility] [place] [address] Care Team Providers Name Role Phone Lovely Vicente MD Primary Care Provider Reason for Visit Reason Onset Date Comments Medication Refill 06/19/2016 Encounter Details Date Type Department Care Team Description 06/19/2016 Refill Endocrinology at [facility] Luz Stallings [place] [facility] [place] [address] ENDOCRINOLOGY DEPT [phone] [place], [place] [address] (Wo rk) Social History [...] Nobles MD [facility] ER [address] [place], [place] [address] (Wo rk) documented as of this encounter Visit Diagnoses Not on filedocumented in this encounter Care Teams Tomato Pulper Operator Relationship Specialty Start Date End Date Lovely Vicente MD PCP - General 04/16/[address] [place] [address] documented as of this encounter
--- OUTSIDE RECORDS SUMMARY | 2022-02-20 01:50 | XMS_ITS | Encounter Summary ---
:1945 Author Organization [facility] [place] [address] Care Team Providers Name Role Phone MiyaAngela STACIE Primary Care Provider Reason for Visit Reason Comments Urinary Retention Encounter Details Date Type Department Care Team Description 05/16/2013 Follow-Up Urology at [facility] Blade Smith, Retention of urine [facility] (Primary Dx) [place] [address] UROLOGY DEPT [place] [id number] (Wo rk) Social History Tobacco Use Types [...] Visit Cardiology Vitaliy Nobles MD [facility] ER CARDIOLOGY [place], [place] [address] (Wo rk) documented as of this encounter Visit Diagnoses Diagnosis 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
--- OUTSIDE RECORDS SUMMARY | 2022-02-20 01:50 | XMS_ITS | Encounter Summary ---
:1945 Author Organization [place] [address] Care Team Providers Name Role Phone Lovely Vicente MD Primary Care Provider Reason for Visit Reason Comments Skin Check Encounter Details Date Type Department Care Team Description 06/05/2016 Office Visit Dermatology at [facility] istory of melanoma; Abdelrahman HOOPER MD Seborrheic keratosis; [address] [facility] [place] (actinic keratosis); [place] [address] Multiple nevi; [phone] [facility] [address]-DERMATOLGY [place], [place] [address] Social History Tobacco Use Types [...] Diagnostic, Drum (ACCU-CHEK COMPACT TEST) Strip by [facility].(Non- Drug; Combo Route) [...] Garcia MD Section of Dermatology [facility] documented in this encounter Plan of Treatment Upcoming Encounters Date Type Specialty Care Team Description 03/26/2022 Office Visit Cardiology Vitaliy Nobles MD [facility] ER DR CARDIOLOGY [place] [address] (Wo rk) documented as of this encounter Visit Diagnoses Diagnosis History of melanoma Personal history of malignant melanoma o f skin Seborrheic keratosis Other seborrheic keratosis [place] (actinic keratosis) Actinic keratosis Multiple nevi Benign neoplasm of skin, site unspecifie d Scar Scar condition and fibrosis of skin documented in this encounter Care Teams Public Health Advisor Relationship Specialty Start Date End Date Lovely Vicente MD PCP - General 04/16/[address] [place] [address] documented as of this encounter
--- OUTSIDE RECORDS SUMMARY | 2022-02-20 01:50 | XMS_ITS | Encounter Summary ---
:1945 Author Organization [facility] [place] [address] Care Team Providers Name Role Phone Angela Holliday APRN Primary Care Provider Encounter Details Date Type Department Care Team Description 03/30/2013 Telephone General Surgery at [facility] Cliff Nevarez, [place] [address] Social History Tobacco Use Types Packs/Day [...] Visit Cardiology Vitaliy Nobles MD [facility] ER [address] [place], [place] [address] (Wo rk) documented as of this encounter Visit Diagnoses Not on filedocumented in this encounter Care Teams Supervisor Frame Sample And Pattern Relationship Specialty Start Date End Date Angela Holliday APRN PCP - General 01/25/13 04/15/[address] [place] [address] documented as of this encounter
--- OUTSIDE RECORDS SUMMARY | 2022-02-20 01:50 | XMS_ITS | Encounter Summary ---
:1945 [place] [address] Care Team Providers Name Role Phone MiyaLokeshAngela STACIE Primary Care Provider Encounter Details Date Type Department Care Team Description 03/28/2013 Anesthesia Event Main Operating Room Meredith Calvert MD [facility] [place] [address] [facility] Nolvia Riojas PA [facility] [place] [address] [place] [address] Anesthesia Record Procedure Summary Procedure Name [...] MD [facility] DR CARDIOLOGY [place], [place] [address] (Wo rk) documented as of [...] Routine documented in this encounter Care Teams Sharepoint Trainer Relationship Specialty Start Date End Date Angela Holliday APRN PCP - General 01/25/13 04/15/[address] [place] [address] documented as of this encounter
--- OUTSIDE RECORDS SUMMARY | 2022-02-20 01:50 | XMS_ITS | Encounter Summary ---
:1945 Author Organization [facility] [place] [address] Care Team Providers Name Role Phone Miya Angela STACIE Primary Care Provider Encounter Details Date Type Department Care Team Description 04/24/2013 Telephone Urology at [facility] Zhen Bowman MD [facility] [place] [address] UROLOGY DEPT [phone] [place], [place] [address] (Wo rk) Social History Tobacco [...] 03/26/2022 Office Visit Cardiology Vitaliy Nobles MD [facility] MEDICAL [facility] CARDIOLOGY [place], [place] [address] (Wo rk) documented as of this encounter Visit Diagnoses Not on filedocumented in this encounter Care Teams Vendor Manager Relationship Specialty Start Date End Date Angela Holliday APRN PCP - General 01/25/13 04/15/15 [address] [facility] [place] [address] documented as of this encounter
--- OUTSIDE RECORDS SUMMARY | 2022-02-20 01:50 | XMS_ITS | Encounter Summary ---
:1945 Author Organization [facility] Address [facility] [place] [address] Care Team Providers Name Role Phone Lovely Vicente MD Primary Care Provider Reason for Visit Reason Comments Skin Check Encounter Details Date Type Department Care Team Description 11/05/2015 Office Visit Dermatology at [facility] benign nevi; Abdelrahman HOOPER MD Lentigines; [address] [facility] History of melanoma; [place] [address] Skin exam for malignant neoplasm [phone] [facility] [place], [place] [address] Social History Tobacco Use Types [...] Diagnostic, Drum (ACCU-CHEK COMPACT TEST) Strip by [facility].(Non- Drug; Combo Route) route 2 times [...] Rigoberto Garcia MD Section of Dermatology [facility] documented in this encounter Plan of Treatment Upcoming Encounters Date Type Specialty Care Team Description 03/26/2022 Office Visit Cardiology Vitaliy Nobles MD [facility] ER CARDIOLOGY [place], [place] [address] (Wo rk) documented as of this encounter Visit Diagnoses Diagnosis Multiple benign nevi Benign neoplasm of skin, site unspecifie d Lentigines Other dyschromia History of melanoma Personal history of malignant melanoma o f skin Skin exam for malignant neoplasm Screening for malignant neoplasm of the skin documented in this encounter Care Teams Dairy Equipment Specialist Relationship Specialty Start Date End Date Lovely Vicente MD PCP - General 04/16/[address] [place] [address] documented as of this encounter
--- OUTSIDE RECORDS SUMMARY | 2022-02-20 01:50 | XMS_ITS | Encounter Summary ---
:1945 Author Organization [facility] [place] [address] Care Team Providers Name Role Phone NeilSom conner STACIE Primary Care Provider Reason for Visit Reason Comments Establish Care OBST GOITER Encounter Details Date Type Department Care Team Description 01/25/2013 Office Visit General Surgery at [facility] er colloid, toxic, [facility] MD Eliseo nodular (Primary Dx) [facility] [place], [place] GENERAL SURGERY [address] [place], [place] [address] [phone] Social History Tobacco Use Types Packs/Day Years [...] who is seen in consultation per SOM OHLLIDAY APRN and Elijah Elias MD because of [...] the thyroid gland were obtained using a [employer] MicroMaxx and an HFL38/13-6 broadband linear array [...] on physical exam. ROS: No H/O asthma, CT, stroke, pulmonary embolus or phlebitis. Comprehensive review [...] agrees to proceed. Will sign in through SDS. Consent is signed. Send copy to Dr. SOM HOLLIDAY APRN and Elijah Elias MD. documented in this encounter Plan of Treatment Upcoming Encounters Date Type Specialty Care Team Description 03/26/2022 Office Visit Cardiology Vitaliy Nobles MD [facility] ER DR CARDIOLOGY [place], [place] [address] (Wo rk) documented as of [...] or interval c hange. Procedure Note Daniele Mayr MD - 01/25/2013Formatt ing of this note [...] 406 ms MUSE SYSTEM (Bezet) Calculated P [place] 52 degrees MUSE SYSTEM Calculated R [place] 0 degrees MUSE SYSTEM Calculated T [place] 40 degrees MUSE SYSTEM INTERPRETATION Normal sinus [...] storm documented in this encounter Care Teams Clinic Coordinator Relationship Specialty Start Date End Date Som Holliday APRN PCP - General 01/25/13 04/15/[address] [place] [address] documented as of this encounter
--- OUTSIDE RECORDS SUMMARY | 2022-02-20 01:50 | XMS_ITS | Encounter Summary ---
:1945 Author Organization [facility] [place] [address] Care Team Providers Name Role Phone Lovely Vicente MD Primary Care Provider Encounter Details Date Type Department Care Team Description 11/28/2016 Telephone Dermatology at [facility] Rigoberto Garcia III, [address] [place] [address] [facility] [phone] [facility] [place]-DER[place], [place] [address] (Wo rk) Social History Tobacco [...] provider. Rigoberto Garcia MD Section of Dermatology [facility] documented in this encounter Plan of Treatment Upcoming Encounters Date Type Specialty Care Team Description 03/26/2022 Office Visit Cardiology Vitaliy Nobles MD [facility] CARDIOLOGY [place], [place] [address] (Wo rk) documented as of this encounter Visit Diagnoses Not on filedocumented in this encounter Care Teams Sales Performance Manager Relationship Specialty Start Date End Date Lovely Vicente MD PCP - General 04/16/[address] [place] [address] documented as of this encounter
--- OUTSIDE RECORDS SUMMARY | 2022-02-20 01:50 | XMS_ITS | Encounter Summary ---
:1945 Author Organization [facility] [place] [address] Care Team Providers Name Role Phone Som Holliday APRN Primary Care Provider Encounter Details Date Type Department Care Team Description 04/11/2014 Procedure visit [facility], CONV Esophageal reflux [facility] Luz Winchester RN (Primary Dx) [place] [address] Social History Tobacco Use Types Packs/Day Years Used Date Former Smoker Alcohol Use Standard Drinks/Week Comments No 0 (1 standard drink = 0.6 oz pure alcoho l) Sex Assigned at Date Recorded Not on file documented as of this encounter Progress Notes Adalid Can MD - 04/13/2014 3:43 PM EDT ESOPHAGEAL MANOMETRY Don Fatima Male, 69 yrs, 1945 PCP: SOM HOLLIDAY DIRECTOR FURNITURE: NONE STUDY DATE: 04/11/14 PROVIDER: Adalid [place] ([id number]) INDICATION Reflux; preoperative evaluation. METHODS Stationary esophageal manometry was performed with the [employer] esophageal motility system utilizing the Polygram software [...] of the esophagus. Adalid Can, PhD, MD heat treat operator, [employer] Section of Gastroenterology and Hepatology [facility] [place] [address] V: [phone] F: [phone] [facility]/gabriela CC/EC: PCP - staff msg copy 04/13/14 Henrique Taylor MD - fax copy 04/13/14 Luz Keller RN - 04/11/2014 8:14 AM EDT Esophageal manometry performed without difficulty and Was well tolerated. documented in this encounter Plan of Treatment Upcoming Encounters Date Type Specialty Care Team Description 03/26/2022 Office Visit Cardiology Vitaliy Nobles MD [facility] MEDICAL [facility] ER CARDIOLOGY [place], [place] [address] (Wo rk) documented as of this encounter Visit Diagnoses Diagnosis Esophageal reflux - Primary documented in this encounter Care Teams Drum Reel Cutter Relationship Specialty Start Date End Date Som Holliday APRN PCP - General 01/25/13 04/15/[address] [place] [address] documented as of this encounter
--- OUTSIDE RECORDS SUMMARY | 2022-02-20 01:50 | XMS_ITS | Encounter Summary ---
:1945 Author Organization [facility] [place] [address] Care Team Providers Name Role Phone Angela Holliday APRN Primary Care Provider Encounter Details Date Type Department Care Team Description 04/05/2013 [place] [address] Social History Tobacco Use Types Packs/Day [...] MD [facility] ER CARDIOLOGY [place], [place] [address] (Wo rk) documented as of this encounter Visit Diagnoses Not on filedocumented in this encounter Care Teams Furniture Shampooer Relationship Specialty Start Date End Date Angela Holliday APRN PCP - General 01/25/13 04/15/[address] [place] [address] documented as of this encounter
--- OUTSIDE RECORDS SUMMARY | 2022-02-20 01:50 | XMS_ITS | Encounter Summary ---
:1945 Author Organization [facility] [place] [address] Care Team Providers Name Role Phone MiyaAngela STACIE Primary Care Provider Reason for Visit Reason Onset Date Comments Advice Only 03/31/2013 Encounter Details Date Type Department Care Team Description 03/31/2013 Telephone Urology at [facility] Daniele Trejo III, MD Advice Only [facility] [place] [address] [place] [id number] [phone] (Wo rk) Social History Tobacco Use Types [...] Visit Cardiology Vitaliy Nobles MD [facility] ER CARDIOLOGY [place], [place] [address] (Wo rk) documented as of this encounter Visit Diagnoses Not on filedocumented in this encounter Care Teams Pairer Inspector Relationship Specialty Start Date End Date Angela Holliday APRN PCP - General 01/25/13 04/15/[address] [place] [address] documented as of this encounter
--- OUTSIDE RECORDS SUMMARY | 2022-02-20 01:50 | XMS_ITS | Encounter Summary ---
:1945 Author Organization [facility] [place] [address] Care Team Providers Name Role Phone AlfonsoAliciaubaldoAngela STACIE Primary Care Provider Encounter Details Date Type Department Care Team Description 11/27/2013 Orders Only Urology at [facility] Blade Smith, Urinary retention [facility] (Primary Dx) [place] [address] UROLOGY DEPT [place], [place] [address] Social History Tobacco Use Types [...] MD [facility] ER CARDIOLOGY [place], [place] [address] (Wo rk) documented as of this encounter Results (ABNORMAL) PSA (11/28/2013 8:02 AM EDT) Analysis [facility]formed [facility] Time Signature PSA Total 4.07 (H) 0.00 - CERNER (Ultrasensitiv 4.00 ng/mL MILLENNIUM e) Specimen Anatomical Collection Method Collection Time Receive d Time (Source) Location / / Volume Laterality Blood specimen 11/28/2013 8:02 AM 014 8:05 (specimen) EDT AM EDT Resulting Agency Comment Spec In Lab Blade Smith MD CHEMISTRY ORDERABLES Performing Organization Address City/State/ZIP Code Phon e Number [place] [phone] [facility] documented in this encounter Visit Diagnoses Diagnosis Urinary retention - Primary Retention of urine, unspecified documented in this encounter Care Teams Payroll Officer Relationship Specialty Start Date End Date Angela Holliday APRN PCP - General 01/25/[address] [place] [address] documented as of this encounter
--- OUTSIDE RECORDS SUMMARY | 2022-02-20 01:50 | XMS_ITS | Encounter Summary ---
:1945 Author Organization [facility] [place] [address] Care Team Providers Name Role Phone Angela Holliday APRN Primary Care Provider Encounter Details Date Type Department Care Team Description 01/16/2014 Surgery Gastroenterology at [facility] Nohemi Jaimes, COLONOSCOPY, [facility] Jorge mcnamara MD [place], [place] [address] [facility] SNARE ([facility] [phone] DR Cintron) GASTROENTEROLOGY DEPT. [place], [place] [address] Social History Tobacco Use Types [...] you need to be checked. [facility] [phone] 8a-5p Same Day Endo [phone] 7a-8p Otherwise contact [phone] and ask to speak to the asset protection agent television installer helper Follow up care is a shelton part [...] Jaimes MD - 01/16/2014 9:49 AM EDT [facility] Operative Note Patient Name: Gregory Fatima : [id number] MR#: [id number] Case Date: 01/16/2014 Surgeon: Surgeon(s) and Role: * Nohemi Jaimes MD - Primary Preoperative diagnosis: 5 yr surv. Full procedure note is documented under the Procedure section of eDH. documented in this encounter Plan of Treatment Upcoming Encounters Date Type Specialty Care Team Description 03/26/2022 Office Visit Cardiology Vitaliy Nobles MD [facility] CARDIOLOGY [place] [address] (Wo rk) documented as of this encounter [...] Surgical Pathology Report (01/16/2014 9:53 AM EDT) [facility] Method Time Signature Surgical CERNER Pathology ? [facility] [place] [place] Report ? Provider: ?? SHREE, NOHEMI Gonzalez ?Pt. Name: ?? SURINDER RT, GREGORY E ? Acc #: ?[id number] ?Pt. MRN: ?[id number] ? Col Date: ?? 4 ? /Sex: [...] MD PATHOLOGY/CYTOLOGY ORDERABLE S Performing Organization Address City/[facility]/ZIP Code Phon e Number [address] CERNER MILLENNIUM Specimen to [...] MD PATHOLOGY/CYTOLOGY ORDERABLE S Performing Organization Address City/[facility] [place] [address] CERNER MILLENNIUM Specimen to [...] MD PATHOLOGY/CYTOLOGY ORDERABLE S Performing Organization Address [facility]/[place] [address] [facility] COLON[facility]COPY (01/16/2014 7:25 AM EDT) [facility] Method Time Signature COLONOSCOPY [facility] PROVATION Endoscopy Patient Name: Gregory Fatima ? Procedure Date: 01/16/2014 7:25 AM ? N: [id number] ? Date of : 1945 ? Age: 68 ? Order #: [id number] ? Procedure: ? Colonoscopy Indications: ? High risk colon cancer surveillance : ? 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 dm on metformin with bs ~ 110 this ? am,s/p melanoma years ago, os a, ? goiter s/p surgery, hbp Providers: ? Nohemi Jaimes MD, Blanca xiong, ? RN, Jacquie Renner [...] to primary care phys ician. ? Nohemi Jaimes MD 01/16/2014 10:04 AM This report has been signed electronically. Number of Addenda: 0 Note Initiated On: 01/16/2014 7:25 AM Specimen (Source) Anatomical Collection Method Collection Time Re ceived Time Location / / Volume Laterality 01/16/2014 7:25 AM EDT Angela Holliday DOOR [facility] SURGICAL ORDERABLES Performing Organization Address City/State/ZIP [...] carpuject (CANCELED) 0856 (Given - Provider: Blanca Samuel, VAMSI)0902 (Given - Provider: Blanca Samuel, RN)0911 (Given - Provider: Blanca Samuel, RN) ONCE PRN, Starting Wed01/16/14 at 0856, Until Wed01/16/14 at 1036, Pain, Intra- Operative (Intra-Procedure), Routine midazolam (PF) (VERSED) 1 mg/mL injection (CANCELED) 0856 (Given - Provider: Blanca Samuel RN)0859 (Given - Provider: Blanca Samuel, RN)0902 (Given - Provider: Blanca Samuel RN)0911 (Given - Provider: Blanca Samuel RN)0914 (Given - Provider: Blanca Samuel RN) ONCE PRN, Starting Wed01/16/14 at 0856, Until Wed01/16/14 at 1036, Sleep, Intra- Operative (Intra-Procedure), Routine documented in this encounter Care Teams Drug Safety Coordinator Relationship Specialty Start Date End Date Angela Holliday APRN PCP - General 01/25/13 04/15/[address] [place] [place] [address] documented as of this encounter
--- OUTSIDE RECORDS SUMMARY | 2022-02-20 01:50 | XMS_ITS | Encounter Summary ---
:1945 Author Organization [facility] [place] [address] Care Team Providers Name Role Phone Unknown Primary Care Provider Unavailable Reason for Visit Reason Comments Other Encounter Details Date Type Department Care Team Description 10/05/2012 Telephone Dermatology at [facility] Rigoberto Garcia III, [address] [place] [address] [facility] [phone] TEJA MARIE-DERMAT [place] [phone] (Wo rk) Social History Tobacco Use Types [...] Visit Cardiology Vitaliy Nobles MD [facility] ER CARDIOLOGY [place], [place] [address] (Wo rk) documented as of this encounter Visit Diagnoses Not on filedocumented in this encounter Care Teams Tire Sorter Relationship Specialty Start Date End Date Unknown PCP - General 10/04/12 01/24/13 None documented as of this encounter
--- OUTSIDE RECORDS SUMMARY | 2022-02-20 01:50 | XMS_ITS | Encounter Summary ---
:1945 Author Organization [facility] [place] [address] Care Team Providers Name Role Phone Lovely Vicente MD Primary Care Provider Encounter Details Date Type Department Care Team Description 09/03/2016 Office Visit Endocrinology at [facility] Maria Ines Stallings of [facility] MD [place] [address] [place] [address] ENDOCRINOLOGY DEPT [place], [place] [address] Social History Tobacco Use Types [...] EST documented in this encounter Progress Notes Calixto Prescott MD - 09/03/2016 11:30 AM EST [...] 4 hours prior to his magnesium pill. CALIXTO PRESCOTT MD Quill Cleanerhandbag designer Section of Endocrinology [facility] Calixto Prescott MD - 09/03/2016 11:30 AM EST THYROID ULTRASOUND Performed by: Calixto Prescott MD Indication: PTC, f/u US Date: 09/03/16 Comparison: Real time images of the thyroid gland were obtained using a BK ultrasound machine. All measurements are given as AP x Transverse x Longitudinal Right Lobe: Absent Left Lobe: Absent Isthmus: Absent Central/Lateral neck: no morphologically abnormal lymph nodes. Impression: No sonographic evidence of recurrence. CALIXTO PRESCOTT MD Quill Cleanerhandbag designer Section of Endocrinology [facility] documented in this encounter Plan of Treatment Upcoming Encounters Date Type Specialty Care Team Description 03/26/2022 Office Visit Cardiology Vitaliy Nobles MD [facility] CARDIOLOGY [place], [place] [address] (Wo rk) documented as of this encounter Results Thyroglobulin (09/07/2017 2:41 PM EST) athologist Signature Thyroglobulin 1.4 <=54.9 [facility] ng/mL [facility] Comment: Thyroglobulin levels may be [...] EST Resulting Agency Comment Spec In Lab Calixto Prescott MD CHEMISTRY ORDERABLES Performing Organization Address City/State/Z[place] [address] [facility] [address] TSH (09/07/2017 2:41 PM EST) athologist Signature TSH 3.93 0.27 - 4.20 [facility] mlU/ML [facility] Specimen Anatomical Collection Method Collection Time Receive d Time (Source) Location / / Volume Laterality Blood specimen 09/07/2017 2:41 PM 018 2:46 (specimen) EST PM EST Resulting Agency Comment Spec In Lab Calixto Prescott MD CHEMISTRY ORDERABLES Performing Organization Address City/State/ZIP Code Phon e Number [place] [phone] [facility] LAB[address] Drive Thyroglobulin (09/03/2016 11:07 AM EST) athologist Signature Thyroglobulin <0.4 <=54.9 [facility] ng/mL [facility] Comment: Interpret with caution. Tg [...] BR et al. J Clin Endo Metab 1999;84:0070-7440). Assay performed using the Talkbitsulite T g immunometric assay. (lowest detection limit [...] EST Resulting Agency Comment Spec In Lab Calixto Prescott MD CHEMISTRY ORDERABLES Performing Organization Address City/[facility]/ZIP Code Phon e Number [address] TSH (09/03/2016 11:07 AM EST) P athologist Signature TSH 3.01 0.27 - 4.20 [facility] mcIU/mL [facility] Specimen Anatomical Collection Method Collection Time Receive d Time (Source) Location / / Volume Laterality Blood specimen 09/03/2016 11:07 7 (specimen) AM EST 11:22 AM EST Resulting Agency Comment Spec In Lab Calixto Prescott MD CHEMISTRY ORDERABLES Performing Organization Address City/[facility]/ZIP [place] [address] documented in this encounter Visit Diagnoses Diagnosis Hx of papillary thyroid carcinoma Personal history of malignant neoplasm o f thyroid documented in this encounter Care Teams Frame Wirer Relationship Specialty Start Date End Date Lovely Vicente MD PCP - General 04/16/[address] [place] [address] [address] [place] [address] documented as of this encounter
--- OUTSIDE RECORDS SUMMARY | 2022-02-20 01:50 | XMS_ITS | Encounter Summary ---
:1945 Author Organization [facility] [place] [address] Care Team Providers Name Role Phone Angela Holliday APRN Primary Care Provider Encounter Details Date Type Department Care Team Description 01/25/2013 Clinical [place] [address] Social History Tobacco Use Types Packs/Day [...] Nobles MD [facility] ER CARDIOLOGY [place], [place] [address] (Wo rk) documented as of this encounter Visit Diagnoses Not on filedocumented in this encounter Care Teams Servomechanism Designer Relationship Specialty Start Date End Date Angela Holliday APRN PCP - General 01/25/13 04/15/[address] [place] [address] documented as of this encounter
--- OUTSIDE RECORDS SUMMARY | 2022-02-20 01:50 | XMS_ITS | Encounter Summary ---
:1945 Author Organization [facility] [place] [address] Care Team Providers Name Role Phone Angela Holliday APRN Primary Care Provider Reason for Referral Surgical (Routine) - Closed Specialty Diagnoses / Procedures Referred By Contact Refer red To Contact General Surgery Diagnoses Elijah Villagomez MD Colacchio, Thomas A, MD [address] [place] [address] [place] [address] [place] [address] Phone: Fax: Referral ID Status Reason Start Date Expiration Date Visits V isits Requested Authorized [id number] Closed Specialty 01/25/2013 07/24/2013 1 1 Service Requested Reason for Visit Reason Comments Thyroid Problem Encounter Details Date Type Department Care Team Description 01/25/2013 Office Visit Endocrinology at [facility] Elijah Fuentes Goiter (Primary Dx) [facility] [address] [place] [address] [place] [address] [phone] Social History Tobacco Use Types Packs/Day Years [...] History Nonsmoker 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 All other [...] the thyroid gland were obtained using a SonSynchroaxx and an HFL38/13-6 broadband linear array transducer. [...] MD [facility] CARDIOLOGY [place], [place] [address] (Wo rk) Scheduled Referrals Name [...] Results (ABNORMAL) TSH (01/25/2013 1:51 PM EDT) athologist Signature TSH 0.25 (L) 0.27 - 4.20 CERNER mcIU/mL MILLENNIUM Specimen Anatomical Collection Method Collection Time Receive d Time (Source) Location / / Volume Laterality Blood specimen 01/25/2013 1:51 PM 013 1:51 (specimen) EDT PM EDT Resulting Agency Comment Spec In Lab Elijah Elias MD CHEMISTRY ORDERABLES Performing Organization Address City/State/ZIP Code Phon e Number [place] [phone] HOSPITAL LAB[address] [facility] documented in this encounter Visit Diagnoses Diagnosis Goiter - Primary Goiter, unspecified documented in this encounter Care Teams Workers' Compensation Magistrate Relationship Specialty Start Date End Date Angela Holliday APRN PCP - General 01/25/13 04/15/[address] [place] [address] documented as of this encounter
--- OUTSIDE RECORDS SUMMARY | 2022-02-20 01:50 | XMS_ITS | Encounter Summary ---
:1945 Author Organization [facility] [place] [address] Care Team Providers Name Role Phone Lovely Vicente MD Primary Care Provider Reason for Visit Reason Onset Date Comments Referral 10/30/2015 Urgent referral for mac on [address] Encounter Details Date Type Department Care Team Description 10/30/2015 Telephone Ophthalmology at [facility] C Jayson Ruiz Referral (Urgent [facility] MD Grabiel referral for mac on [facility] [address] SIM[address]) [place] [address] OPHTHALMOLOGY DEPT. [phone] [place], [place] [address] (Wo rk) Social History Tobacco [...] [facility] ER CARDIOLOGY [place], [place] [address] (Wo rk) documented as of this encounter Visit Diagnoses Not on filedocumented in this encounter Care Teams Construction Skills Teacher Relationship Specialty Start Date End Date Lovely Vicente MD PCP - General 04/16/[address] [place] [address] documented as of this encounter
--- OUTSIDE RECORDS SUMMARY | 2022-02-20 01:50 | XMS_ITS | Encounter Summary ---
:1945 Author Organization [facility] [place] [address] Care Team Providers Name Role Phone Lovely Vicente MD Primary Care Provider Reason for Visit Reason Comments Skin Lesion Encounter Details Date Type Department Care Team Description 11/24/2016 [facility]oplasm [facility] uncertain behavior of skin; Road IIIMD Pigmented skin lesion of uncertain natur e; [address] [facility] [place] of [place] [address] [facility] SIMÓN-DERMATOLGY [place], [place] [address] Social History Tobacco Use Types [...] or concerns, please call the office at [phone]. If it is after 5PM, or a holiday or weekend, please call [phone] and ask for the Resident Services Director on-call. documented in this encounter Progress Notes [...] 71 y.o. year old male.Established patient of [employer]. Last seen 06/05/16. Here today for new [...] encounter. Rigoberto Garcia MD Section of Dermatology [facility] documented in this encounter Plan of Treatment Upcoming Encounters Date Type Specialty Care Team Description 03/26/2022 Office Visit Cardiology Vitalyi Nobles MD [facility] DR [place]LE [place] [address] (Wo rk) documented as [...] Component Value Ref Test Analysis Performed At [facility] Range Method Time Signature Surgical [id number] ?Location: [facility] Pathology CONTINENTAL DIVIDE Report The signing pathologist has (i) examined [...] MD PATHOLOGY/CYTOLOGY ORDERABLE S Performing Organization Address City/[facility]/[place] [address] Specimen to Pathology (NON-OR) (11/24/2016 8:28 AM EDT) Specimen Anatomical Collection Method Collection Time Receive d Time (Source) Location / / Volume Laterality AP Specimen 11/24/2016 8:28 AM 7 9:29 EDT AM EDT Narrative [facility] - 11/24/2016 9:29 AM EDT Specimen requisition ordered. ??Separate Pathology report to follow Resulting Agency Comment Spec In Lab Rigoberto Garcia III, MD PATHOLOGY/CYTOLOGY ORDERABLE S Performing Organization Address City/[facility]/[place] [address] documented in this encounter Visit Diagnoses Diagnosis Neoplasm of uncertain behavior of skin Pigmented skin lesion of uncertain natur e History of melanoma Personal history of malignant melanoma o f skin documented in this encounter Care Teams Intake Man Relationship Specialty Start Date End Date Lovely Vicente MD PCP - General 04/16/[address] [place] [address] [address] [facility] 1 [place] [address] documented as of this encounter
--- OUTSIDE RECORDS SUMMARY | 2022-02-20 01:50 | XMS_ITS | Encounter Summary ---
:1945 Author Organization [facility] [place] [address] Care Team Providers Name Role Phone Angela Holliday APRN Primary Care Provider Reason for Visit Reason Comments Other Encounter Details Date Type Department Care Team Description 08/01/2013 Telephone Dermatology at [facility] Rigoberto Garcia III, [address] [place] [address] [facility] [phone] TEJA MARIE-DERMAT [place], [place] [address] (Wo rk) Social History Tobacco [...] them. Component Value Surgical Pathology Final Report [facility] Provider: RIGOBERTO GARCIA III Pt. Name: DON HOANG Acc #: [id number] Pt. Col Date: 07/31/2013 /Sex: 1945,(68 years),Male Rec Date: 07/31/2013 LOC: [facility] SURGICAL PATHOLOGY ---Pathologic Diagnosis--- Skin, right abdomen, shave biopsy: Lentiginous compound nevus with moderate atypia of the intraepidermal component, extending to the peripheral specimen edge, ulcerated, associated with spongiosis and superficial perivascular lymphoeosinophilic infiltrate (see Comment). CR-0 08/01/13 BJM 08/01/13 Verified by: Ian STRANGE, PhD, [facility] Dermatopathologist (Electronic Signature) The attending pathologist [...] Nobles MD [facility] CARDIOLOGY [place], [place] [address] (Wo rk) documented as of this encounter Visit Diagnoses Not on filedocumented in this encounter Care Teams Prescription Eyeglass Maker Relationship Specialty Start Date End Date Angela Holliday APRN PCP - General 01/25/13 04/15/15 [address] [facility] [place] [address] documented as of this encounter
--- OUTSIDE RECORDS SUMMARY | 2022-02-20 01:51 | XMS_ITS | Encounter Summary ---
:1945 Author Organization [facility] [place] [address] Care Team Providers Name Role Phone Brody Berrios MD Primary Care Provider Reason for Visit Reason Comments Annual Exam Encounter Details Date Type Department Care Team Description 09/22/2011 Follow-Up Dermatology Arik Tipton Psoriasis (Primary Dx); [facility] MD Jorge Personal history of other malignant neop lasm of skin Drive [place] [phone] DERMATOLOGY DEPT . 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 His only complaints tail bone and scalp [...] changes: Arik Tipton MD Section of Dermatology [facility] documented in this encounter Plan of Treatment Upcoming Encounters Date Type Specialty Care Team Description 03/26/2022 Office Visit Cardiology Vitaliy Nobles MD [facility] ER DR CARDIOLOGY [place], [place] [address] (Wo rk) documented as of this encounter Visit Diagnoses Diagnosis Psoriasis - Primary Other psoriasis Personal history of other malignant neop lasm of skin documented in this encounter Care Teams Seal Delivery Vehicle Officer Relationship Specialty Start Date End Date Brody Berrios MD PCP - General 09/22/11 10/03/[address] [place] [address] documented as of this encounter
--- OUTSIDE RECORDS SUMMARY | 2022-02-20 01:51 | XMS_ITS | Encounter Summary ---
:1945 Author Organization [facility] Address [facility] [place] [address] Care Team Providers Name Role Phone Unknown Primary Care Provider Unavailable Reason for Visit Reason Comments Skin Check Encounter Details Date Type Department Care Team Description 10/04/2012 Follow-Up Dermatology at Rigoberto Forman soriasis (Primary Dx); Abdelrahman HOOPER MD Neoplasm of unspecified nature of bone, soft tissue, and skin; [address] [facility] Skin lesion of chest wall; [place] [address] Seborrheic psoriasis- scalp and ingtergl uteal area [phone] [facility]DER[facility] [place], [place] [address] (Wo rk) Social History Tobacco [...] changes: Rigoberto Albarran MD Section of Dermatology [facility] documented in this encounter Plan of Treatment Upcoming Encounters Date Type Specialty Care Team Description 03/26/2022 Office Visit Cardiology Vitaliy Nobles MD [facility] ER DR CARDIOLOGY [place], [place] [address] (Wo rk) documented as of this encounter Procedures Procedure Name Priority Date/Time Associated Diagnosis Comme nts SURGICAL PATHOLOGY Routine 10/04/2012 12:43 PM Re sults for this REPORT EDT [...] Ref Test Analysis Performed At [facility] Range Method Time Signature Surgical CERNER Pathology ? [facility] Report ? Provider: ?? RIGOBERTO ALBARRAN III Pt. Name: ?? DON HOANG ?A ? Acc #: ?[id number] ? Pt. ? Col Date: ?? 3 [...] City/[facility]/[place] [address] CERNER InductlyIUM Specimen to Pathology (NON-OR) (10/04/2012 9:55 AM EDT) Specimen Anatomical Collection Method Collection Time Receive d Time (Source) Location / / Volume Laterality AP Specimen 10/04/2012 9:55 AM 3 9:56 EDT AM EDT Narrative CERNER MILLENNIUM - 10/04/2012 9:56 AM E DT Specimen requisition ordered. ??Separate Pathology report to follow Rigoberto Albarran III, MD PATHOLOGY/CYTOLOGY ORDERABLE S Performing Organization Address City/[facility] [place] [address] CERNER RainbowENNIUM documented in this encounter Visit Diagnoses Diagnosis Psoriasis - Primary Other psoriasis Neoplasm of unspecified nature of bone, soft tissue, and skin Skin lesion of chest wall Unspecified disorder of skin and subcuta neous tissue Seborrheic psoriasis- scalp and ingtergl uteal area Other psoriasis documented in this encounter Care Teams General Assembler Relationship Specialty Start Date End Date Unknown PCP - General 10/04/12 01/24/13 None documented as of this encounter
--- OUTSIDE RECORDS SUMMARY | 2022-02-20 01:51 | XMS_ITS | Encounter Summary ---
:1945 Author Organization [facility] [place] [address] Care Team Providers Name Role Phone Adi Costello MD Primary Care Provider Reason for Visit Reason Comments Annual Exam ckeck his groin and melanoma follow-up Encounter Details Date Type Department Care Team Description 11/21/2010 Follow-Up Dermatology Arik Tipton Melanoma (Primary Dx) [facility] MD [place] [id number] DERMATOLOGY DEPT . 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 His only complaints are leg cramps, skin [...] changes: Arik Tipton MD Section of Dermatology [facility] documented in this encounter Plan of Treatment Upcoming Encounters Date Type Specialty Care Team Description 03/26/2022 Office Visit Cardiology Vitaliy Nobles MD [facility] CARDIOLOGY [place], [place] [address] (Wo rk) documented as of this encounter Visit Diagnoses Diagnosis Melanoma - Primary Melanoma of skin, site unspecified documented in this encounter Care Teams Hydramatic Mechanic Relationship Specialty Start Date End Date Adi Costello MD PCP - General 06/17/10 09/21/11 [address] [place] [address] documented as of this encounter
--- OUTSIDE RECORDS SUMMARY | 2022-02-20 01:52 | XMS_ITS | Encounter Summary ---
:1945 Author Organization [facility] Address [address] [place] [address] Care Team Providers Name Role Phone Unknown, Provider Primary Care Provider Encounter Details Date Type Department Care Team Description 07/11/2014 Hospital Encounter [facility]- Heather Unknown, Provider, [facility] [address] [place] [address] [place] [address] (Work) [phone] Social History Tobacco Use Types Packs/Day Years Used Date Never Assessed Sex Assigned at Date Recorded Not on file documented as of this encounter Discharge Disposition Disposition Code Departure Means Destination Home or Self [facility] documented in this encounter Plan of Treatment Not on filedocumented as of this encounter Visit Diagnoses Not on filedocumented in this encounter Care Teams Broaching Machine Set Up Operator Relationship Specialty Start Date End Date Unknown, Provider, PCP - General 03/07/14 07/12/14 documented as of this encounter
--- OUTSIDE RECORDS SUMMARY | 2022-02-20 01:52 | XMS_ITS | Encounter Summary ---
:1945 Author Organization [facility] Address [address] [place] [address] Care Team Providers Name Role Phone Lovely Vicente MD Primary Care Provider Encounter Details Date Type Department Care Team Description 08/11/2019 Lab Requisition [facility] Unknown, Provider, Pathology & Laboratory [facility] [address] [facility] [place] [address] Social History Tobacco Use Types Packs/Day Years [...] (08/11/2019 14:35 EST) Giardia and Cryptosporidium Cryptosporidium [facility] Cryptosporidium Antigen Neg and Antigen Neg and CENTER Giardia Antigen Neg Giardia Antigen Neg LABORATORY SERVICES Specimen Feces - Specimen from rectum (specimen) Performing Organization Address City/State/ZIP Code Phon e Number [facility] [address] [place] [address] SERVICES documented in this encounter Visit Diagnoses Not on filedocumented in this encounter Care Teams Dredge Hand Relationship Specialty Start Date End Date Lovely Vicente MD PCP - General 07/13/14 documented as of this encounter
--- OUTSIDE RECORDS SUMMARY | 2022-02-20 01:52 | XMS_ITS ---
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 Problem Critical ischemia I99.8 Active of lower extremity Problem Atherosclerosis I70.90 Active 3871 6007 Problem Type 2 diabetes E11.628 Active mellitus with other skin complications Problem 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 40 ; Acquired deformi ty of right foot M21.961 ; L luis term current use of i nsulin Z79.4 ; History of art erial bypass of lower extremi ty Z95.828 ; Atherosclerosis I70.90 and History of Lisfr anc amputation of fo ot Z89.439 [facility] Feb, Type 2 diabet es mellitus [address] [place] with diabe tic neuropathy, [address] unspecified E11. 40 ; Acquired deformi ty of right foot M21.961 ; L luis term current use of i nsulin Z79.4 ; History of art erial bypass of lower extremi ty Z95.828 ; Atherosclerosis I70.90 and History of Lisfr anc amputation of fo ot Z89.439 [facility] November, [place] [address] [facility] [facility] November, Type 2 [place]ete [place] [address] with diabeti c neuropathy, unspecified E11. 40 ; Acquired deformi ty of right foot M21.961 ; L luis term current use of i nsulin Z79.4 ; History of art erial bypass of lower extremi ty Z95.828 ; Atherosclerosis I70.90 and History of Lisfr anc amputation of fo ot Z89.439 [facility] 10 Aug, 2019 Type 2 [place] [address] with other skin complications E1 1.628 ; Tinea pedis of l eft foot B35.3 ; Type 2 d iabetes mellitus with di abetic neuropathy, unsp ecified E11.40 ; Acquire d deformity of right foot M2 1.961 ; nursing home current use of insulin Z79.4 ; History of arterial bypass of lower extremity Z95.828 and Athe rosclerosis I70.90 [facility] Jun, [place] [address] [facility] Jun, [place] [address] [facility] Jun, Type 2 diabet es mellitus [place], [place] with other skin [address] complications E1 1.628 ; Acquired deformi ty of right foot M21.961 ; T ype 2 diabetes mellitu s with diabetic neuropa thy, unspecified E11. 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 40 ; nursing home current use of insulin Z79.4 and Histor y of arterial bypass of lower extremity Z95.82 8 [facility] November, Tinea pedis o f left foot [place], [place] B35.3 ; Ty pe 2 diabetes [address] mellitus with ot her skin complications E1 1.628 ; Acquired deformi ty of right foot M21.961 ; T ype 2 diabetes mellitu s with diabetic neuropa thy, unspecified E11. 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 40 ; Acquired deformi ty of right foot M21.961 ; P eripheral arterial disease I73.9 ; History of arter ial bypass of lower extremi ty Z95.828 ; nursing home curren t use of insulin Z79.4 an d History of Lisfranc amputat ion of foot Z89.439 UNKNOWN Jul, [facility] 11 Jun, 2018 Type 2 [place]ete [place] [address] with diabeti c neuropathy, unspecified E11. 40 [facility] Apr, Edema of both legs R60.0 ; [place], [place] Acquired d eformity of right [address] foot M21.961 ; P eripheral arterial disease I73.9 ; History of arter ial bypass of lower extremi ty Z95.828 ; petroleum terminal plant operator curren t use of insulin Z79.4 an d Type 2 diabetes mellitu s with diabetic neuropa thy, unspecified E11. 40 [facility] Mar, [place] [address] [address] Mar, Edema of both legs R60.0 ; [place] Acquired d eformity of right [address] foot M21.961 ; P eripheral arterial disease I73.9 ; History of arter ial bypass of lower extremi ty Z95.828 ; petroleum terminal plant operator curren t use of insulin Z79.4 an d Type 2 diabetes mellitu s with diabetic neuropa thy, unspecified E11. 40 [facility] Feb, Edema of both legs R60.0 ; [place] [address] Ulcer of lef t calf, limited to breakdown of skin L97.221 ; Acquired defor mity of right foot M21.9 61 ; Peripheral arter ial disease I73.9 ; History of arterial bypass of lower extremity Z95.828 ; Long t erm current use of insulin Z 79.4 and Type 2 diabetes mellitus with diabetic ne uropathy, unspecified E11. 40 [facility] 1 Feb, [facility] [address] [facility] Feb, Edema of both legs R60.0 ; [place] [address] Ulcer of rig ht calf, limited to [...] uropathy, unspecified E11. 40 [facility] [address] [facility] Feb, [place] [address] [facility] [address] [facility] [address] Feb, [place] [address] [facility] [address] Jan, [place] [address] [facility] [address] Jan, [place] [address] [facility] [address] Jan, [place] [address] [facility] [address] Jan, [place] [address] [facility] [address] [place], [place] [address] [facility] [address] Dec, [place] [address] [facility] [address] Dec, [place] [address] [facility] [address] [address] Dec, [place] [address] [facility] [address] Dec, [place] [address] [facility] Dec, [place] [address] [facility] [address] Dec, [place] [address] [facility] November, [place] [address] [facility] November, [place] [address] [facility] November, [place] [address] [facility] November, [place] [address] [facility] November, [place] [address] [facility] November, [place] [address] UNKNOWN November, [facility] [address] November, [place]ICE [place] [address] [facility] November, [place] [address] [facility] Oct, [place] [address] [facility] Oct, [place] [address] [facility] Oct, [place] [address] [facility] [address] 18 Oct, 2017 [place] [address] [facility] 16 Oct, 2017 [place] [address] [facility] [address] 16 Oct, 2017 [facility] [address] [facility] Oct, [place] [address] [facility] Oct, [place] [address] [facility] Oct, [place] [address] [facility] [address] Sep, [facility] [address] [facility] Sep, [place] [address] [facility] [address] Sep, [place] [address] [facility] [address] Sep, [place] [address] [facility] [address] Sep, [place] [address] [facility] [address] Sep, Critical ischemi a of lower [place] [address] extremity I 99.8 ; Local infection of the skin and subcutaneous tis lindsey, unspecified L08. 9 and Type 2 diabetes mellitu s with other skin complicatio ns E11.628 [facility] Sep, [place] [address] [facility] [address] [address] Sep, [place] [address] [facility] [address] Sep, [place] [address] [facility] [address] [facility] [address] 14 Sep, [address] [place] [address] [facility] Sep, [place] [address] [facility] Sep, [place] [address] [facility] Sep, [place] [address] [facility] Sep, [place] [address] [facility] [address] Aug, [place] [address] [facility] [address] Aug, [facility] [address] [facility] [address] Aug, [place] [address] [facility] Aug, [place] [address] [facility] Aug, [place] [address] [facility] Aug, [place] [address] ORTHOPEDIC OFFICE [facility] Aug, Pre-op exam Z01.818 [place] [address] [facility] Aug, [place] [address] [facility] Aug, [place] [address] [facility] Aug, [place] [address] IMMUNIZATIONS No Known Immunizations SOCIAL HISTORY Qualifiers [...] subcutaneously 22 24h Active units/mL daily Pen [place] Active Ciclopirox Externally Twice 1 application 12h [...] For Report MR Lower Ext R w/o ([id number]) 2017-09-16 See Below For Report CR C-ARM [...] A1c 03/04/18 - 6.7, [facility] annually, f/u - bilateral leg edema, Pt [...] at wound center,lab work done 03/07/2018 @ [facility], Patient came in with tubigrip bilateral , wound clin est, wound clinest, Wound CTR-follow up, Wound CTR-follow up, Wound CTR-follow up, Peer to Peer w/ Dr. Espino, Wound CTR-follow up, Wound CTR-follow up, Anesthesiologist Documentation, LAB, Wound CTR-follow up, Wound CTR-follow up, Wound CTR-follow up, Wound CTR-follow up, LAB, LAB, Wound CTR- follow up, Wound CTR-follow up, Wound CTR-follow up, Anesthesiologist Documentation, [facility], Wound CTR-follow up, Wound CTR-follow up, Pull PICC Line, Wound CTR-follow up, Wound CTR-follow up, LAB, Still taking doxycycline 100mg? , Wound CTR-follow up, Wound CTR-follow up, Wound CTR-follow up, Anesthesiologist Documentation, Wound CTR-follow up, Wound CTR-follow up, Call back, Anesthesiologist Documentation, Anesthesiologist Documentation, Anesthesiologist Documentation, Wound CTR-follow up, WCC, Wound CTR-follow up, Wound CTR-follow up, labs, D/C planning, bailey smetatarsal amputation of right foot, LAB, LAB, Wound CTR-NEW Insurance Providers [facility]ly [facility] Health Member Patient Patient Patient Patient Patient Subscriber Subscriber Subscriber Group Insurance Plan Plan Plan Plan ID Relationship Address Phone Name Date of ID Name Date of No Type Insurance Insurance Insurance Coverage to Subscriber Address Phone Name Dates OTHER MALINA [phone] OTHER [place] [id number] GRANT 1^MAIN GRE[employer] [place] PAYOR [place] PAY[place] [id number] MEDICARE 3000 [address]FF[place] MEDICARE self GREGORY [id number] [facility] [id number] SELF PAY [address] STRE[address] SELF PAY self [place] [id number] AFTER BLUE [place] AFTER BLUE [facility] [id number] [address] S-BLUE [phone] S-BLUE [place] [id number] [address] [address] [place] [address] [place]
--- OUTSIDE RECORDS SUMMARY | 2022-02-20 01:52 | XMS_ITS | Encounter Summary ---
:1945 Author Organization [facility] Address [address] [place] [address] Care Team Providers Name Role Phone Lovely Vicente MD Primary Care Provider Encounter Details Date Type Department Care Team Description 01/17/2021 Lab Requisition [facility] Outr Resulting Lab, Pathology & Laboratory Provider [facility] [address] [place] [address] Social History Tobacco Use Types Packs/Day Years [...] nature PSA 2.9 0.0 - 6.5 ng/mL [facility] Specimen Blood - Venous blood (substance) Narrative [facility] - 01/17/2021 17:46 EDT NOTE: Serum PSA concentration should not be in terpreted as absolute evidence for the presence or absence of malignant disease. Assayed on Siemens ADVIA Centaur XPT usi ng chemiluminescent technology.??Values obtained by using different assay methods cannot be used interchangeably. Performing Organization Address City/State/ZIP Code Phon e Number [facility] [address] [place] [address] SERVICES documented in this encounter Visit Diagnoses Not on filedocumented in this encounter Care Teams Fish Roe Technician Relationship Specialty Start Date End Date Lovely Vicente MD PCP - General 07/13/14 documented as of this encounter
--- OUTSIDE RECORDS SUMMARY | 2022-02-20 01:52 | XMS_ITS | Encounter Summary ---
:1945 Author Organization [facility] Address [address] [place] [address] Care Team Providers Name Role Phone Lovely Vicente MD Primary Care Provider Encounter Details Date Type Department Care Team Description 01/28/2022 Lab Requisition [facility] Outr Resulting Lab, Pathology & Laboratory Provider [facility] [address] [place] [address] Social History Tobacco Use Types Packs/Day Years Used Date Never Assessed Sex Assigned at Date Recorded Not on file documented as of this encounter Plan of Treatment Not on filedocumented as of this encounter Procedures Procedure Name Priority Date/Time Associated Diagnosis Comme nts COVID-19 TEST [facility] Today 01/27/2022 14:30 LAB PCR EDT COVID-19 TESTING Routine 01/27/2022 14:30 Results for this EDT procedure are i n the results section. documented in this encounter Results COVID-19 TEST [facility] LAB PCR (01/27/2022 14:30 EDT) Specimen Swab Performing Organization Address City/State/ZIP Code Phon e Number [facility] [address] [place] [address] SERVICES COVID-19 TESTING (01/27/2022 14:30 EDT) COVID-19 rt-PCR Negative Negative [facility] Result Comment: CENTER LABORATORY This [...] was performed using the meliton SARS-CoV-2 assay ([employer] on the Meliton 6800 System Performing Lab Meliton 6800 [facility] Lab [facility] SERVICES Specimen Swab Performing Organization Address City/State/ZIP Code Phon e Number [facility] [address] [place] [address] SERVICES documented in this encounter Visit Diagnoses Not on filedocumented in this encounter Care Teams Production Control Scheduler Relationship Specialty Start Date End Date Lovely Vicente MD PCP - General 07/13/14 documented as of this encounter
--- OUTSIDE RECORDS SUMMARY | 2022-02-20 01:52 | XMS_ITS | Encounter Summary ---
:1945 Author Organization [facility] Address [address] [place] [address] Care Team Providers Name Role Phone Lovely Vicente MD Primary Care Provider Encounter Details Date Type Department Care Team Description 01/01/2020 Lab Requisition [facility] Outr Resulting Lab, Pathology & Laboratory Provider [facility] [address] [place] [address] Social History Tobacco Use Types Packs/Day Years [...] nature PSA 2.1 0.0 - 6.5 ng/mL [facility] Specimen Blood - Venous blood (substance) Narrative [facility] - 01/02/2020 10:40 EDT NOTE: Serum PSA concentration should not be in terpreted as absolute evidence for the presence or absence of malignant disease. Assayed on Siemens [employer] Centaur XPT usi ng chemiluminescent technology.??Values obtained by using different assay methods cannot be used interchangeably. Performing Organization Address City/State/ZIP Code Phon e Number [facility] [address] [place] [address] SERVICES documented in this encounter Visit Diagnoses Not on filedocumented in this encounter Care Teams Finishing Area Supervisor Relationship Specialty Start Date End Date Lovely Vicente MD PCP - General 07/13/14 documented as of this encounter
--- OUTSIDE RECORDS SUMMARY | 2022-02-20 01:52 | XMS_ITS | Encounter Summary ---
:1945 Author Organization [facility] Address [address] [place] [address] Care Team Providers Name Role Phone Lovely Vicente MD Primary Care Provider Encounter Details Date Type Department Care Team Description 04/04/[address] [facility] Outr Resulting Lab, Pathology & Laboratory Provider [facility] [address] [place] [address] Social History Tobacco Use Types Packs/Day Years [...] Pathologist Sig nature Salmonella PCR Negative Negative [facility] SERVICES Shigella/Enteroinvasive Negative Negative [facility] HN LAB CAMPYLOBACTER PCR Negative Negative [facility] ER LABORATORY SERVICES Shiga Toxin PCR Negative Negative [facility] LAB[facility]ATORY SERVICES Specimen Feces - Specimen from rectum (specimen) Performing Organization Address City/State/ZIP Code Phon e Number [facility] [address] [place] [address] SERVICES documented in this encounter Visit Diagnoses Not on filedocumented in this encounter Care Teams Vacuum Pan Tender Relationship Specialty Start Date End Date Lovely Vicente MD PCP - General 07/13/14 documented as of this encounter
--- OUTSIDE RECORDS SUMMARY | 2022-02-20 01:52 | XMS_ITS | Clinical Summary ---
:1945 Author Organization [facility] Address [address] [place] [address] Care Team Providers Name Role Phone Lovely [...] from Last 3 Months Results COVID-19 TEST [facility] LAB PCR (01/27/2022 14:30 EDT) Specimen Swab Performing Organization Address City/State/ZIP Code Phon e Number [facility] [address] [place] [address] SERVICES COVID-19 TESTING (01/27/2022 14:30 EDT) COVID-19 [...] performed using the meliton SARS-CoV-2 assay ([employer] on the Meliton 6800 System Performing Lab Meliton 6800 [facility] Lab [facility] SERVICES Specimen Swab Performing Organization Address City/State/ZIP Code Phon e Number [facility] [address] [place] [address] SERVICES from Last 3 Months Care Teams Gravel Machine Operator Relationship Specialty Start Date End Date Lovely Vicente MD PCP - General 07/13/14
--- OUTSIDE RECORDS SUMMARY | 2022-02-20 01:52 | XMS_ITS | Encounter Summary ---
:1945 Author Organization [facility] Address [address] [place] [address] Care Team Providers Name Role Phone Unknown, Provider Primary Care Provider Encounter Details Date Type Department Care Team Description 03/05/2014 Results Only [facility] Eris Taylor MD Laboratory Services - [address] [place] [address] [place] [address] [phone] Social History Tobacco Use Types Packs/Day Years [...] ? DON HOANG ? Accession #: ? [id number] ? : ? 1945 (Age: 68) ??M [...] City/State/ZIP Code Phon e Number [facility] [address] [place] [address] SERVICES [facility] [address] [place] [address] documented in this encounter Visit Diagnoses Not on filedocumented in this encounter Care Teams Mass Spectroscopist Relationship Specialty Start Date End Date Unknown, Provider, PCP - General 03/07/14 07/12/14 documented as of this encounter
--- OUTSIDE RECORDS SUMMARY | 2022-02-20 01:52 | XMS_ITS | Encounter Summary ---
:1945 Author Organization [facility] Address [address] [place] [address] Care Team Providers Name Role Phone Unavailable Primary Care Provider Unavailable Encounter Details Date Type Department Care Team Description 03/05/2014 Hospital Encounter [facility]- Heather Unknown, Provider, [facility] 0 [facility] [phone] [place] [address] (Work) [phone] Social History Tobacco Use Types Packs/Day Years Used Date Never Assessed Sex Assigned at Date Recorded Not on file documented as of this encounter Discharge Disposition Disposition Code Departure Means Destination Home or Self Half-Way documented in this encounter Plan of Treatment Not on filedocumented as of this encounter Visit Diagnoses Not on filedocumented in this encounter
[2022-02-20 18:22] LABS: PSA, Diagnostic 2.7 ng/mL (<=6.5)
== END 2022-02-20 01:29 | disposition home or self-care (01) ==
LOC: LBO 01:37
PROVIDERS: PCP Family Medicine; Visit Provider Urology
DX: R97.20 Elevated prostate specific antigen [PSA] (principal)
CPT/HCPCS: 36415; 84153

== ENCOUNTER 2022-02-20 08:06 | Outpatient (RCR) | payer MEDICARE, BC, SELFPAY ==
--- OUTSIDE RECORDS SUMMARY | 2022-02-06 13:29 | XMS_ITS | Encounter Summary ---
:1945 Author Organization [facility] [place] [address] Care Team Providers Name Role Phone Lovely Vicente MD Primary Care Provider Encounter Details Date Type Department Care Team Description 12/25/2021 Laboratory Appointment Lab 3L [facility] systolic [facility] [place] [id number] Social History Tobacco Use Types Packs/Day Years Used Date Former Smoker Cigarettes 3 5 Quit: 07/26/18 69 Smokeless Tobacco: Never Used Alcohol Use Standard Drinks/Week Comments No 0 (1 standard drink = 0.6 oz pure alcoho l) Sex Assigned at Date Recorded Not on file documented as of this encounter Plan of Treatment Upcoming Encounters Date Type Specialty Care Team Description 02/19/2022 Laboratory Appointment Lab 02/19/2022 Office Visit Cardiology Liz Poole PA [facility] er Cardiology Dept [place], [place] [address] (Wo rk) 03/12/2022 Office Visit Cardiology Vitaliy Nobles MD [facility] CARDIOLOGY [place], [place] [address] (Wo rk) documented as of this encounter Procedures Procedure Name Priority Date/Time Associated Comments Diagnosis HEMOGRAM Routine 12/25/2021 7:46 AM Chronic systolic Resul ts for this EDT heart failure procedure are in the results section. DIFFERENTIAL, Routine 12/25/2021 7:46 AM Chronic systolic Resu lts for this AUTOMATED EDT heart failure procedure are in the results section. HC CBC,PLT & AUTO Routine 12/25/2021 7:46 AM Chronic systolic DIFF EDT heart failure HC VENIPUNCTURE Routine 12/25/2021 7:46 AM Chronic systolic Re sults for this EDT heart failure procedure are in the results section. BASIC METABOLIC PANEL Routine 12/25/2021 7:46 AM Chronic systo lic Results for this (NON-FASTING) EDT heart failure procedure are in the results section. documented in this encounter Results (ABNORMAL) Differential, Automated (12/25/2021 7:46 AM EDT) [facility] Method Time Signature Neutrophils % 82.6 % [facility] Neutr Abs (ANC) 9.37 (H) 1.70 - [facility] 6.10 [facility] x10(3)/[facility] L LABORATORY Lymphocytes % 7.1 % [facility] Lymphocytes Abs 0.8 (L) 0.9 - 3.2 [facility] x10(3)/[facility] LABORATORY Monocytes % 8.8 % [facility] Monocyte Abs 1.0 (H) 0.3 - 0.9 [facility] x10(3)/[facility] LABORATORY Eosinophils % 0.4 % [facility] Eosinophils Abs 0.0 0.0 - 0.4 [facility] x10(3)/[facility] LABORATORY Basophils % 0.4 % [facility] Basophils Abs 0.0 0.0 - 0.1 [facility] x10(3)/[facility] LABORATORY Immature Gran % 0.70 % [facility] Comment: Immature granulocytes(IG's)percentage an d absolute count will include metamyelocytes, myelocytes, and promyelo cytes. Blood smears from CBCs yielding IG's will be scanned manually for concor dance. If this scan disagrees with the automated IG or if promyelocytes are not ed, a manual differential will be performed. Melisa Gran Abs 0.08 (H) 0.00 - 0.04 x10(3)/[facility] LABORATORY Specimen Anatomical Collection Method Collection Time Receive d Time (Source) Location / / Volume Laterality Blood 12/25/2021 7:46 AM 2 8:01 EDT AM EDT Resulting Agency Comment Spec In Lab Liz BROWN HEMATOLOGY ORDERABLES Performing Organization Address City/State/Z[place] [address] (ABNORMAL) Hemogram (12/25/2021 7:46 AM EDT) Analysis Performed At Patho logist Time Signature WBC 11.4 (H) 4.0 - 9.5 [facility] x10(3)/[facility] LABORATORY RBC 4.23 (L) 4.58 - [facility] x10(6)/[facility] LABORATORY Hemoglobin 12.3 (L) 13.7 - [facility] 16.5 g/dL [facility] LABORATORY Hematocrit 37.7 (L) 40.5 - [facility] 48.5 % [facility] LABORATORY MCV 89.1 82.9 - [facility]1 [facility] LABORATORY MCH 29.1 27.5 - [facility] 32.1 pg [facility] LABORATORY MCHC 32.6 32.0 - [facility] 35.7 g/dL [facility] LABORATORY Platelets 215 145 - 357 [facility] x10(3)/[facility] LABORATORY RDWSD 49.8 (H) 36.0 - [facility] 45.0 [facility] LABORATORY RDWCV 15.2 (H) 11.4 - [facility] 13.8 % [facility] LABORATORY MPV 9.2 7.6 - 12.9 [facility] LABORATORY nRBC % Auto 0.0 % [facility] nRBC Abs Auto 0.000 0.000 - [facility] R[facility] 0.000 [facility] x10(3)/[facility] LABORATORY Specimen Anatomical Collection Method Collection Time Receive d Time (Source) Location / / Volume Laterality Blood 12/25/2021 7:46 AM 2 8:01 EDT AM EDT Resulting Agency Comment Spec In Lab Liz BROWN HEMATOLOGY ORDERABLES Performing Organization Address City/State/Z[place] [address] (ABNORMAL) Basic Metabolic Panel (non-fasting) (12/25/2021 7:46 AM EDT) P athologist Signature Glucose Lvl 272 (H) 65 - 199 [facility] mg/dL [facility]ORY Comment: Diabetes: >=200 mg/dL plus symp toms BUN 62 (H) 10 - 20 mg/dL [facility] Creatinine 1.81 (H) 0.80 - 1.50 mg/dL [facility] Sodium 134 (L) 135 - 145 mmol/L [facility] Potassium 4.9 3.5 - 5.0 mmol/L [facility] Comment: Please note: ??Patients with WBC >100,00 0 may have falsely elevated Potassium levels. ??For accurate Potassium quantif ication in these patients send serum separator tube (gold top) for subsequent determinations. ??Contact the Clinical Chemistry Laboratory if there are any qu estions. Chloride 95 (L) 98 - 107 mmol/L [facility] CO2 28 22 - 31 mmol/L [facility] Anion Gap 11 5 - 15 mmol/L [facility] Calcium 9.4 8.5 - 10.5 mg/dL [facility] Estimated GFR 36 (L) >=60 mL/min/1.73 m?? [facility] Comment: This patient? s estimated glomerular filtration rate (eGFR) is between 36 mL/min/1.73 m2 (patients with less muscl e mass per kg body weight) and 41 mL/min/1.73 m2 (patients with more muscl e mass per kg body weight) as determined by the CKD-EPI equation. Asse ssment of eGFR is not appropriate when creatinine concentrations are rapidly ch anging. For clinical decisions where creatinine clearance will affect therapy , a 24-hour urine creatinine clearance may be advised. Assignment of CKD stage 1 - 5 for patien ts with an eGFR near the transition point between stages may be based on cli nical assessment of muscle mass and symptoms in addition to eGFR. Specimen Anatomical Collection Method Collection Time Receive d Time (Source) Location / / Volume Laterality Blood 12/25/2021 7:46 AM 2 8:01 EDT AM EDT Resulting Agency Comment Spec In Lab Zulma Plunkett MD CHEMISTRY ORDERABLES Performing Organization Address City/State/[place] [address] (ABNORMAL) pro-Brain Natriuretic Peptide (12/25/2021 7:46 AM EDT) P athologist Signature ProBNP 1,380 (H) <=124 [facility] pg/mL [facility] LABOR[facility]ORY Specimen Anatomical Collection Method Collection Time Receive d Time (Source) Location / / Volume Laterality Blood 12/25/2021 7:46 AM 2 8:01 EDT AM EDT Resulting Agency Comment Spec In Lab Zulma Plunkett MD CHEMISTRY ORDERABLES Performing Organization Address City/State/[place] [address] documented in this encounter Visit Diagnoses Diagnosis Chronic systolic heart failure documented in this encounter Care Teams Wax Room Supervisor Relationship Specialty Start Date End Date Lovely Vicente MD PCP - General 04/16/[address] [place] [address] documented as of this encounter
--- OUTSIDE RECORDS SUMMARY | 2022-02-06 13:29 | XMS_ITS | Encounter Summary ---
:1945 [place] [address] Care Team Providers Name Role Phone Lovely Vicente MD Primary Care Provider Encounter Details Date Type Department Care Team Description 12/24/2021 Orders Only Support Dba Zulma Finch ASCVD (art eriosclerotic [facility] cardiovascular disease) [facility] [place] [address] [place], [place] [phone] (Work) [phone] Social History Tobacco Use Types Packs/Day Years [...] 02/19/2022 Office Visit Cardiology Liz Poole PA [facility] er Cardiology Dept [place], [place] [address] (Wo rk) 03/12/2022 Office Visit Cardiology Vitaliy Nobles MD [facility] ER [address] [place], [place] [address] (Wo rk) documented as of this encounter Visit Diagnoses Diagnosis ASCVD (arteriosclerotic cardiovascular d isease) Unspecified cardiovascular disease documented in this encounter Care Teams Mother Helper Relationship Specialty Start Date End Date Lovely Vicente MD PCP - General 04/16/15 [address] [place] [address] documented as of this encounter
--- OUTSIDE RECORDS SUMMARY | 2022-02-06 13:29 | XMS_ITS | Encounter Summary ---
:1945 Author Organization [place] [address] Care Team Providers Name Role Phone Lovely Vicente MD Primary Care Provider Encounter Details Date Type Department Care Team Description 12/15/2021 Telephone Cardiology at [facility] Barbara [place]era, [place] [phone] Social History Tobacco Use Types Packs/Day Years Used Date Former Smoker Cigarettes 3 5 Quit: 07/26/18 69 Smokeless Tobacco: Never Used Alcohol Use Standard Drinks/Week Comments No 0 (1 standard drink = 0.6 oz pure alcoho l) Sex Assigned at Date Recorded Not on file documented as of this encounter Miscellaneous Notes Telephone Encounter - Barbara Mera, RN - 12/15/2021 9:03 AM EDT RTC to Mr and Mrs Fatima regarding question about Mr Fatima's post discharge Levothyroxine dosing. Reviewed Mr Fatima's medications with her, and she confirmed he is taking his losartan 100 mg, daily, and torsemide 40 mg, daily. She states his Blood Pressure is 108/58, 111/66, and 114/66, so he is holding his Metoprolol, as sheis concerned his Blood Pressure might go to low. Mrs Fatima confirms Mr Fatima's PCP prescribes both his Levothyroxine, and Metoprolol, and asked her to call the PCP's office for follow up instructions, regarding these 2 medications. The patient indicates understanding of these issues and agrees with the plan. Brabara Mera (Jodie), RN, BSN [facility] documented in this encounter Plan of Treatment Upcoming Encounters Date Type Specialty Care Team Description 02/19/2022 Laboratory Appointment Lab 02/19/2022 Office Visit Cardiology Liz Poole PA [facility] Cardiology Dept [place], [place] [address] (Wo rk) 03/12/2022 Office Visit Cardiology Vitaliy Nobles MD [facility] CARDIOLOGY [place], [place] [address] (Wo rk) documented as of this encounter Visit Diagnoses Not on filedocumented in this encounter Care Teams Head Chopper Relationship Specialty Start Date End Date Lovely Vicente MD PCP - General 04/16/15 [facility] [address] [place] [address] documented as of this encounter
--- OUTSIDE RECORDS SUMMARY | 2022-02-06 13:29 | XMS_ITS | Encounter Summary ---
:1945 Author Organization [facility] [place] [address] Care Team Providers Name Role Phone Lovely Vicente MD Primary Care Provider Reason for Visit Reason Onset Date Comments Advice Only 01/28/2022 Encounter Details Date Type Department Care Team Description 01/28/2022 Telephone Cardiology at [facility] Chitra Angela, [place] [phone] Social History Tobacco Use Types Packs/Day Years Used Date Former Smoker Cigarettes 3 5 Quit: 07/26/18 69 Smokeless Tobacco: Never Used Alcohol Use Standard Drinks/Week Comments No 0 (1 standard drink = 0.6 oz pure alcoho l) Sex Assigned at Date Recorded Not on file documented as of this encounter Miscellaneous Notes Telephone Encounter - Chitra Angela, RN - 01/28/2022 8:07 AM EDT VM that Don is having a stent on Wednesday and they have heard from no one which meds to hold. They think they hold one for 3 days prior. Chart reviewed. Returned call, clear connection established Mrs. Fatima assists patient with medications. Number for clay processing labourer scheduling given and she will call them to verify this information Meds reviewed. As per our form from clay processing labourer Eliquis hold for 48 hours prior. Pt held last evenings dose and will continue to hold Metformin GFR is 36 so will hold the morning of procedure Lantus will take half dose night before Humalog will hold the morning of reports that patient has had stents in the past and is aware of the procedure. She goes on to report that his weight was up 4 pounds so she increased his diuretics by a 1/2 tableteach and now his weight is back to his dry weight of 191 pounds. She did this as last time he had to wait 3 days until his fluid wt was down to have his cathven. Chitra Angela RN 4A Cardiology documented in this encounter Plan of Treatment Upcoming Encounters Date Type Specialty Care Team Description 02/19/2022 Laboratory Appointment Lab 02/19/2022 Office Visit Cardiology Liz Poole PA [facility] [place], [place] [address] (Wo rk) 03/12/2022 Office Visit Cardiology Vitaliy Nobles MD [facility] CARDIOLOGY [place], [place] [address] (Wo rk) documented as of this encounter Visit Diagnoses Not on filedocumented in this encounter Care Teams Log Sawyer Relationship Specialty Start Date End Date Lovely Vicente MD PCP - General 04/16/[address] [place] [address] documented as of this encounter
--- OUTSIDE RECORDS SUMMARY | 2022-02-06 13:29 | XMS_ITS | Encounter Summary ---
:1945 Author Organization [facility] Address [facility] [place] [address] Care Team Providers Name Role Phone Lovely Vicente MD Primary Care Provider Reason for Visit Auth/Cert Specialty Diagnoses / Procedures Referred By Contact Refer red To Contact Diagnoses ASCVD (arteriosclerotic cardiovascular disease) [I25.10] Vitaliy Nobles MD [facility] SERVICE ARE[facility] Procedures PRO PERC TRLUML CORONARY STENT W/ANGIO ONE ART/BRANCH CARDIAC CATHETERIZATION STENT PLACEMENT-SINGLE MAJOR CORONARY ARTERY OR BRANCH [facility] [place] [address] Referral ID Status Reason Start Date Expiration Date Visits Requ ested Visits Authorized [id number] 1 1 Encounter Details Date Type Department Care Team Description 01/30/2022 Hospital Encounter Short Stay Unit at Vitaliy Nobles, CVD (arteriosclerotic cardiovascular disease); Barbara Blue MD Atherosclerosis [place] coronary arter y [place] heart with angina pectoris with documented spasm; [facility] ASHD (arteriosclerotic heart disease) [facility] [address] [place] [id number] [phone] Social History Tobacco Use Types Packs/Day Years Used Date Former Smoker Cigarettes 3 5 Quit: 07/26/18 69 Smokeless Tobacco: Never Used Alcohol Use Standard Drinks/Week Comments No 0 (1 standard drink = 0.6 oz pure alcoho l) Sex Assigned at Date Recorded Not on file documented as of this encounter Last Filed Vital Signs Vital Sign Reading Time Taken Comments Blood Pressure 111/65 01/30/2022 12:38 PM EDT Pulse 59 01/30/2022 12:38 PM EDT Temperature 36.7 ??C (98.1 ??F) 01/30/2022 12:38 PM EDT Respiratory Rate 17 01/30/2022 12:38 PM EDT Oxygen Saturation 97% 01/30/2022 12:38 PM EDT Inhaled Oxygen Concentration - - Weight 88 kg (194 lb) 01/30/2022 7:37 AM EDT Height 172.7 cm (5' 8) 01/30/2022 7:37 AM EDT Body Mass Index 29.5 01/30/2022 7:37 AM EDT documented in this encounter Discharge Instructions Patient InstructionsEddi Elizabeth Jr., MD - 01/30/2022 10:24 AM EDT We have placed a new stent in the distal right coronary artery. Due to the placement of a new stent, we would like you to take Aspirin 81 mg once per day for the next 2 weeks. This is in addition to your Apixaban and Clopidogrel. Please follow up with your learning operations specialist in the next 4-6 weeks. We have made a referral to cardiac rehab. Please see the attached instructions regarding care to your right wrist access site. AttachmentsThe following attachments cannot be sent through Care Everywhere. Coronary Angiogram: Post-op (Macedonian)documented in this encounter Medications at Time of Discharge Medication Sig Dispensed Refills Start Date End Date torsemide (Demadex) 20 Take 1 tablet by mouth 30 tablet 11 0 12/25/2021 mg TabletIndications: daily. Chronic systolic heart failure clopidogreL (Plavix) Take 1 tablet by mouth 90 tablet 3 75 mg Tablet daily. empagliflozin Take 1 tablet by mouth 30 tablet 3 12/12/2021 (Jardiance) 10 mg daily. Tablet pantoprazole EC Take 1 tablet by mouth 90 tablet 3 12/13/19 22 (Protonix) 40 mg daily. Tablet, Delayed Release (E.C.) spironolactone Take 1 tablet by mouth 90 tablet 3 2 (Aldactone) 25 mg daily. Tablet ferrous sulfate 325 mg Take 325 mg by mouth 0 (65 mg iron) Tablet daily (with breakfast). Tablet 4 days a week. losartan (COZAAR) 100 Take 50 mg by mouth 0 04/14 mg Tablet daily. atorvastatin (Lipitor) Take 10 mg by mouth 0 40 mg Tablet daily. 5 days weekly. LANTUS SOLOSTAR U-100 35 Units nightly. 0 019 INSULIN pen ascorbic acid, Vitamin Take 500 mg by mouth 0 C, (VITAMIN C) 500 mg daily. Tablet TURMERIC ORAL Take 500 mg by mouth 2 0 times daily. levothyroxine Take 1 tablet by mouth 102 tablet 3 09/08/2017 (SYNTHROID) 175 mcg daily. 1 tablet daily Tablet 6 days per week, and 2 tablets 1 day per week. meTOPROLOL succinate Take 25 mg by mouth 0 (TOPROL-XL) 25 mg daily. 0.5 tablet of Tablet Sustained 50 mg Release 24 hr Magnesium Oxide 500 mg Take 500 mg by mouth 0 Capsule daily. metFORMIN (GLUCOPHAGE) Take 1 tablet by mouth 60 tablet 12 1 09/15/2016 850 mg Tablet 2 times daily (with meals). aspirin 81 mg Capsule 1 capsule by Per 14 capsule 0 01/31/20 22 02/13/2022 PO/OG/NG route daily for 14 days. clobetasoL (TEMOVATE) APPLY TOPICALLY DAILY 0 02/2022 0.05 % Solution NEEDED FOR RASH nitroGLYcerin Place 1 tablet under 90 tablet 12 12/12/2021 (Nitrostat) 0.4 mg the tongue every 5 Tablet, Sublingual minutes as needed for Chest pain. apixaban (Eliquis) 5 Take 1 tablet by mouth 60 tablet 3 mg Tablet 2 times daily. insulin lispro Inject 25 Units 0 (HumaLOG) Insulin Pen subcutaneously 3 times daily (before meals). ACCU-CHEK TERA PLUS 2-3 times daily 100 each 1 07/14/2017 TEST STRP Strip BD INSULIN PEN NEEDLE 1 each by Other route 0 UF MINI 31 gauge x 4 times daily. 10/08 Needle documented as of this encounter Progress Notes Carlos Alberto Murray RN - 01/30/2022 4:54 PM EDT [facility] Short Stay Unit Discharge Note All relevant discharge milestones have been met by the patent. After Visit Summary and discharge teaching reviewed with the patient and a family member. IV access has been discontinued. All personal belongings have been returned to the patient/family upon their departure from the unit.Patient has been discharged to home The patient has been discharged without VNA services. Stent card taken by patient. documented in this encounter H&P Notes Eddi Elizabeth Jr., MD - 01/30/2022 7:42 AM EDT Images from the original note were not included. Don Fatima is a 76 y.o. male referred for cardiac catheterization for staged PCI. In brief, 76 yo gentleman w/ a pmh sig for STEMI s/p CABG 06/2017, HFrEF-35%, DM2, HTN, DLD, GERD, and recent PCI presenting for staged PCI to [facility]. The pt states he has been ok. Mostly complains of fatigue. R hand feels fine. Denies any specific limitations. There have not been any changes in health status since last seen in clinic. No recent or current illnesses. Patient denies fevers, chills. Patient denies any history of bleeding issues and specifically denies hematochezia, melena, hematemesis, intraabdominal bleeding, intracranial bleeding. Planned/pending surgeries: none Denies any history of kidney disease. Current antiplatelets/anticoagulants: asa/plavix Diabetic medications: jardiance, insulin, metformin NPO status: since midnight Outpatient Medications Marked as Taking for the 01/30/22 encounter (Hospital Encounter) Medication Sig Dispense Refill ??? torsemide (Demadex) 20 mg Tablet Take 1 tablet by mouth daily. 30 tablet 11 ??? clopidogreL (Plavix) 75 mg Tablet Take 1 tablet by mouth daily. 90 tablet 3 ??? empagliflozin (Jardiance) 10 mg Tablet Take 1 tablet by mouth daily. 30 tablet 3 ??? pantoprazole EC (Protonix) 40 mg Tablet, Delayed Release (E.C.) Take 1 tablet by mouth daily. 90tablet 3 ??? spironolactone (Aldactone) 25 mg Tablet Take 1 tablet by mouth daily. 90 tablet 3 ??? ferrous sulfate 325 mg (65 mg iron) Tablet Take 325 mg by mouth daily (with breakfast). Tablet 4days a week. ??? aspirin 81 mg Capsule 81 mg every 24 hours. ??? losartan (COZAAR) 100 mg Tablet Take 50 mg by mouth daily. ??? atorvastatin (Lipitor) 40 mg Tablet Take 10 mg by mouth daily. 5 days weekly. ??? LANTUS SOLOSTAR U-100 INSULIN pen 35 Units nightly. ??? ascorbic acid, Vitamin C, (VITAMIN C) 500 mg Tablet Take 500 mg by mouth daily. ??? TURMERIC ORAL Take 500 mg by mouth 2 times daily. ??? levothyroxine (SYNTHROID) 175 mcg Tablet Take 1 tablet by mouth daily. 1 tablet daily 6 days perweek, and 2 tablets 1 day per week. (Patient taking differently: Take 175 mcg by mouth daily. 1 tablet daily 6 days per week, and 2 tablets 1 day per week on Wednesday.) 102 tablet 3 ??? meTOPROLOL succinate (TOPROL-XL) 25 mg Tablet Sustained Release 24 hr Take 25 mg by mouth daily.0.5 tablet of 50 mg ??? Magnesium Oxide 500 mg Capsule Take 500 mg by mouth daily. ??? metFORMIN (GLUCOPHAGE) 850 mg Tablet Take 1 tablet by mouth 2 times daily (with meals). 60 tablet 12 BP 140/67 (BP Location (NBP): Left arm) Pulse 58 Temp 36.5 ??C (97.7 ??F) (Temporal) Resp 16 Ht 172.7 cm (5' 8) Wt 88 kg (194 lb) SpO2 98% BMI 29.50 kg/m?? General - No acute distress. Well-groomed/nourished. Speech is normal HEENT - EOMI. No scleral icterus. Noninjected. Moist membranes. No cervical LAD Respiratory: Clear to auscultation bilaterally. Good effort/excursion. Cardiac - RRR, normal S1/S2, no audible murmur, gallop or rubs. No JVD. No BLAINE. Abdomen - Soft, nontender/nondistended, normal active bowel sounds. Extremities - Warm. No clubbing or cyanosis. Radial Pulses: 1+ R, 2+ L Neuro - Limited exam. No deficits. ASA: 3: Patient with severe systemic disease Mallampati: Class III Labs reviewed and notable for: Lab Results Component Value Date WBC 6.8 01/30/2022 HGB 13.0 (L) 01/30/2022 HCT 39.8 (L) 01/30/2022 MCV 92.1 01/30/2022 PLATELET 172 01/30/2022 Lab Results Component Value Date CREATININE 1.81 (H) 12/25/2021 BUN 62 (H) 12/25/2021 NA 134 (L) 12/25/2021 K 4.9 12/25/2021 CL 95 (L) 12/25/2021 CO2 28 12/25/2021 Lab Results Component Value Date INR 1.3 12/12/2021 Stress Testing: Echocardiogram: A/P: 76 yo gentleman w/ a pmh sig for STEMI s/p CABG 06/2017, HFrEF-35%, DM2, HTN, DLD, GERD, and recent PCI presenting for staged PCI to [facility]. The indications, expected benefits, and potential risks of diagnostic or therapeutic catheterizationwere reviewed in detail with the patient. The potential for , myocardial infarction, arrhythmias, stroke, kidney failure, hemorrhage, allergic reaction to contrast, vascular complications and infection were reviewed in detail. The possibility of stenting and other percutaneous intervention, with associated risk, was reviewed. The possible need for emergent coronary artery bypass surgery was reviewed. Alternatives were discussed and the patient's questions were answered. Following this discussion, the patient consented to the procedure and signed a form attesting to this. - Proceed as planned - Consent reviewed and signed - No obvious CI to DAPT - Sedation plan: moderate/conscious sedation - FULL CODE Eddi Elizabeth Jr, MD 01/30/2022 7:42 AM documented in this encounter Miscellaneous Notes Consult Note - Rebeka Deluca RN - 01/30/2022 2:57 PM EDT Don Fatima was seen today by Cardiac Rehabilitation for: SD/PCI Activity evaluation - Per SSU team Don has history of prior PR and CABG. I had referred him to cardiac rehab at [facility] last month per HF team. He was waiting until this intervention before starting the program. Reviewed managing angina /use of sl nitroglycerin. Given parameters for home exercise. 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 We discussed short walks several times per day. Will send [facility] his discharge summary from this admission. The patient should be contacted by the Program within 1- 2 weeks from discharge. Brief Op Note - Vitaliy Nobles MD - 01/30/2022 10:19 AM EDT Images from the original note were not included. [facility] [place] [id number] CORONARY ANGIOGRAM AND PERCUTANEOUS CORONARY INTERVENTION REPORT Patient: Don Fatima : 1945 MR number: [id number] Date of Service: 01/30/2022 Game Programer: Vitaliy Nobles MD Fellow: AJ DeLago INDICATION: Don Fatima??is a 76 y.o.??male??with h/o??CAD s/p 3vCABG (THOMPSON- LAD, sequential SVG-OM1-D1) 07/07/2017 following late STEMI, ischemic cardiomyopathy with LVEF 40-45%, paroxysmal atrial fibrillation on outpatient warfarin, IDDM2, CKD III, hypertension, dyslipidemia, COPD, MARIA VICTORIA, right meta tarsal amputation 08/09/2017, and hypothyroidism prior thyroidectomy in 2012 who presented last monthin November 2021 with a NSTEMI, pulmonary edema, a reduction of LVEF with RWMA and mod MR. He was found to have severely elevated LVEDP of 30 mmHg and occlusion of the SVG to the Diag1 to OM1, and severe 95% disease of the ostium of the LCX. Additionally he had RPDA with severe 95% multiple tandem lesions with YULISSA 2 flow. That admission in November 2021, we stented the ostial LCX into the LM with a large 4.0 x 24 mm Synergy TUCKER stent extending from the LCX into the LM, and post-dilated the LM part with a 5.5mm NC balloon. Following this we noted brisk flow up the retrograde portion of the sequential graft into the Diag, thus we probably relieved his Diag1 ischemia as well. We let him recover from his ADHFand contrast load and are now bringing him back for a PCI of the diffusely diseased 95% RPDA today for continued symptoms of fatigue and shortness of breath. PROCEDURES PERFORMED: ??? Left heart cath, coronary angiogram. ??? IVUS of the RCA ??? PCI of the RPDA Coronary circulation: The coronary circulation is??right dominant.??There was??severe 3 vessel disease: ?? RCA: Angiography showed??a 30% mid RCA lesion. The RPDA has severe 95% multiple tandem lesions with YULISSA 2 flow. ? PCI REPORT: PCI of the proximal and mid RPDA 95% lesion. A successful PCI was performed on the 95% lesion in the proximal and mid RPDA lesion. We used a 6 FrIR 2.0 guide. We administered heparin as the anticoagulant and he was already loaded on Plavix as the antiplatelet agent. We used a RunThrough wire to cross the lesion into the distal diffusely diseased RPDA. We dilated the lesion using a 1.5 x 15 mm balloon to 22 darshan. We performed IVUS which showed the entire RPDA had severe diffuse disease. We further dilated the lesion with a 2.0 x 15 mm NC balloon to 24 darshan. We delivered a long 2.0 x 26 mm HARDEEP [place] TUCKER stent and positioned it at the ostium of the RPDA extending into the mid RPDA and deployed it at 12 darshan. We then used the stent balloon to p ost-dilate the stent to 20 darshan pressure. We used an additional 3.25 x 15 mm NC balloon to 24 darshan to post-dilate the proximal part of the vessel. Final IVUS showed well apposed stent and no dissections.Following intervention there was 0% residual stenosis. There were no site complications. ?? Pre: ?? Post: ? SUMMARY AND THERAPEUTIC RECOMMENDATIONS: ?? Don Fatima presented with a NSTEMI, pulmonary edema, a reduction of LVEF with RWMA and mod MR in November 2021. He was found to have severely elevated LVEDP of 30 mmHg and occlusion of the SVG to the Diag1 to OM1, and severe 95% disease of the ostium of the LCX. Additionally she had RPDA with severe 95% multiple tandem lesions with YULISSA 2 flow. That day in November 2021, we stented the ostial LCX into the LM with a large 4.0 x 24 mm extending from the LCX into the LM, and post-dilated the LM part witha 5.5 mm NC balloon. Following this we noted brisk flow up the retrograde portion of the sequential graft into the Diag, thus we probably relieved his Diag1 ischemia as well. We let him recover from his ADHF and contrast load and today brought him back for a PCI of the diffusely diseased 95% RPDA. We stented the RPDA using a 2.0 x 26 mm HARDEEP [place] TUCKER stent. This completes the revascularization ofall the major vessels. He still has severe diffuse distal disease, which will be medically managed. ?? Please continue Aspirin 81 mg daily, Plavix 75 mg and high intensity statin. He may restart Coumadin. Aspirin may be discontinued after 2 weeks of triple therapy. Plavix and coumadin continued thereafter. ?? The case was reviewed and discussed with the patient and Dr. Cuevas. ?? I advised cardiac rehab. ?? I was present during the entire procedure and personally dictated or confirmed the above report. Vitaliy Nobles MD MS CORBIN 01/30/2022 10:20 AM documented in this encounter Plan of Treatment Upcoming Encounters Date Type Specialty Care Team Description 02/19/2022 Laboratory Appointment Lab 02/19/2022 Office Visit Cardiology Liz Poole PA [facility] Cardiology Dept [place], [place] [address] (Wo rk) 03/12/2022 Office Visit Cardiology Vitaliy Nobles MD [facility] CARDIOLOGY [place], [place] [address] (Wo rk) Scheduled Orders Name Type Priority Associated Diagnoses Order S chedule EKG 12 Lead ECG Routine ASCVD (arteriosclerotic One Time for 1 Occurrences cardiovascular disease) star ting 01/30/2022 until 01/30/2022 documented as of this encounter Procedures Procedure Name Priority Date/Time Associated Diagnosis Comme nts HEMOGRAM Routine 01/30/2022 2:12 Results for this PM EDT procedure are i n the results section. DIFFERENTIAL, AUTOMATED Routine 01/30/2022 2:12 R esults for this PM EDT procedure are i n the results section. HC CBC,PLT & AUTO DIFF Routine 01/30/2022 2:12 PM EDT HC VENIPUNCTURE Routine 01/30/2022 2:12 Results f or this PM EDT procedure are i n the results section. POCT GLUCOSE Routine 01/30/2022 1:41 Results for this PM EDT procedure are i n the results section. POCT GLUCOSE Routine 01/30/2022 10:48 Results for this AM EDT procedure are i n the results section. EKG 12-LEAD Routine 01/30/2022 10:33 ASCVD Results for this AM EDT (arteriosclerotic procedure are in cardiovascular the results disease) section. CARDIAC CATHETERIZATION Routine 01/30/2022 10:16 ASCVD Results for this AM EDT (arteriosclerotic procedure are in cardiovascular the results disease) section. POCT GLUCOSE Routine 01/30/2022 9:04 Results for this AM EDT procedure are i n the results section. POCT GLUCOSE Routine 01/30/2022 8:10 Results for this AM EDT procedure are i n the results section. documented in this encounter Results (ABNORMAL) Differential, Automated (01/30/2022 2:12 PM EDT) athologist Signature Neutrophils % 71.8 % [facility] Neutr Abs (ANC) 3.96 1.70 - [facility] 6.10 [facility] x10(3)/[facility] LABORATORY Lymphocytes % 16.3 % [facility] Lymphocytes Abs 0.9 0.9 - 3.2 [facility] x10(3)/[facility] LABORATORY Monocytes % 10.0 % [facility] Monocyte Abs 0.6 0.3 - 0.9 [facility] x10(3)/[facility] LABORATORY Eosinophils % 0.5 % [facility] Eosinophils Abs 0.0 0.0 - 0.4 [facility] x10(3)/[facility] LABORATORY Basophils % 0.5 % [facility] Basophils Abs 0.0 0.0 - 0.1 [facility] x10(3)/[facility] LABORATORY Immature Gran % 0.90 % [facility] Comment: Immature granulocytes(IG's)percentage an d absolute count will include metamyelocytes, myelocytes, and promyelo cytes. Blood smears from CBCs yielding IG's will be scanned manually for concor dance. If this scan disagrees with the automated IG or if promyelocytes are not ed, a manual differential will be performed. Melisa Gran Abs 0.05 (H) 0.00 - 0.04 x10(3)/[facility] LABORATORY Specimen Anatomical Collection Method Collection Time Receive d Time (Source) Location / / Volume Laterality Blood 01/30/2022 2:12 PM 2 2:37 EDT PM EDT Resulting Agency Comment Spec In Lab Eddi Elizabeth Jr., MD HEMATOLOGY ORDERABLES Performing Organization Address City/State/[place] [address] (ABNORMAL) Hemogram (01/30/2022 2:12 PM EDT) Analysis Performed At Patho logist Time Signature WBC 5.5 4.0 - 9.5 [facility] x10(3)/[facility] LABORATORY RBC 4.30 (L) 4.58 - [facility] RYAN 5.54 [facility] x10(6)/[facility] LABORATORY Hemoglobin 12.7 (L) 13.7 - [facility] 16.5 g/dL [facility]OR[facility] Hematocrit 39.4 (L) 40.5 - [facility] RYAN 48.5 % [facility] MCV 91.6 82.9 - [facility].1 fL [facility] MCH 29.5 27.5 - [place] RYAN 32.1 pg [facility] MCHC 32.2 32.0 - [facility] 35.7 g/dL [facility] Platelets 172 145 - 357 [facility] x10(3)/[facility] LABORATORY RDWSD 54.5 (H) 36.0 - [facility] 45.0 [facility] LABORATORY RDWCV 16.4 (H) 11.4 - [facility] 13.8 % [facility] LABORAT[facility] MPV 9.2 7.6 - 12.9 [facility] LABORATORY nRBC % Auto 0.0 % [facility] nRBC Abs Auto 0.000 0.000 - [facility] 0.000 [facility] x10(3)/[facility] LABORATORY Specimen Anatomical Collection Method Collection Time Receive d Time (Source) Location / / Volume Laterality Blood 01/30/2022 2:12 PM 2:37 EDT PM EDT Resulting Agency Comment Spec In Lab Eddi Elizabeth Jr., MD HEMATOLOGY ORDERABLES Performing Organization Address City/State/[place] [address] (ABNORMAL) Basic Metabolic Panel (non-fasting) (01/30/2022 2:12 PM EDT) athologist Signature Glucose Lvl 163 65 - 199 [facility] mg/dL [facility] Comment: Diabetes: >=200 mg/dL plus symp toms BUN 30 (H) 10 - 20 mg/dL [facility] Creatinine 1.47 0.80 - 1.50 mg/dL [facility] Sodium 140 135 - 145 mmol/L [facility] Potassium 4.2 3.5 - 5.0 mmol/L [facility] Comment: Please note: ??Patients with WBC >100,00 0 may have falsely elevated Potassium levels. ??For accurate Potassium quantif ication in these patients send serum separator tube (gold top) for subsequent determinations. ??Contact the Clinical Chemistry Laboratory if there are any qu estions. Chloride 101 98 - 107 mmol/L [facility] CO2 28 22 - 31 mmol/L [facility] Anion Gap 11 5 - 15 mmol/L [facility] Calcium 9.2 8.5 - 10.5 mg/dL [facility] Estimated GFR 49 (L) >=60 mL/min/1.73 m?? [facility] Comment: This patient's estimated GFR was calcula vlad using the 2020 CKD-EPI equation. The estimated GFR can vary from the rod ured GFR by up to 30% in the absence of rapidly changing kidney function. Assess ment of the estimated GFR is not appropriate when creatinine concentratio ns are rapidly changing. For clinical situations in which a more precise estim ate of GFR is necessary, consider alternative methods of GFR estimation shi ch as a 24-hour urine creatinine clearance. Assignment of CKD stage 1-5 for patients with an eGFR near the transition point between stages may be based on clinical assessment of muscle mass and symptoms in addition to eGFR. Specimen Anatomical Collection Method Collection Time Receive d Time (Source) Location / / Volume Laterality Blood 01/30/2022 2:12 PM 2 2:37 EDT PM EDT Resulting Agency Comment Spec In Lab Vitaliy Nobles MD CHEMISTRY ORDERABLES Performing Organization Address City/[facility]/ZIP Code Phon e Number [address] POCT Glucose (01/30/2022 1:41 PM EDT) athologist Signature POC Glucose 148 65 - 199 [facility] mg/dL [facility] Comment: Supplemental ranges: <140 mg/dL before meals <180 mg/dL all other times of the day Specimen Anatomical Collection Method Collection Time Receive d Time (Source) Location / / Volume Laterality Blood 01/30/2022 1:41 PM 2 1:41 EDT PM EDT Vitaliy Nobles MD POINT OF CARE TEST ORDERABLE S Performing Organization Address City/[facility]/[place] [address] POCT Glucose (01/30/2022 10:48 AM EDT) athologist [facility] Glucose 193 65 - 199 [facility] mg/dL [facility] Comment: Supplemental ranges: <140 mg/dL before meals <180 mg/dL all other times of the day Specimen Anatomical Collection Method Collection Time Receive d Time (Source) Location / / Volume Laterality Blood 01/30/2022 10:48 01/30/2022 AM EDT 10:48 AM EDT Vitaliy Sandra Nobles MD POINT OF CARE TEST ORDERABLE S Performing Organization Address City/[facility]/[place] [address] EKG 12 Lead (01/30/2022 10:33 AM EDT) Component Value Ref Range Test Analysis Performed Pathologis t Method Time At Signature Ventricular rate 64 BPM MUSE SYSTEM Atrial Rate 64 BPM MUSE SYSTEM P-R Interval 162 ms MUSE SYSTEM QRS Duration 94 ms MUSE SYSTEM Q-T Interval 422 ms MUSE SYSTEM QTC Calculated 435 ms MUSE SYSTEM (Bezet) Calculated P [place] 41 degrees MUSE SYSTEM Calculated R [place] -27 degrees MUSE SYSTEM Calculated T [place] 104 degrees MUSE SYSTEM INTERPRETATION Normal sinus rhythm MUSE SYSTEM Anterolateral infarct (cited on or before 09-DEC-2021) Abnormal ECG When compared with ECG of 10-DEC-2021 11:17, No significant change was found Confirmed by Gary Perez ([id number]) on 01/30/2022 5:57:5 2 PM Specimen Anatomical Collection Method Collection Time Receive d Time (Source) Location / / Volume Laterality 01/30/2022 10:33 01/30/2022 5:57 AM EDT PM EDT Vitaliy Sandra Nobles MD ECG ORDERABLES Performing Organization Address City/State/ZIP Code Phon e Number MUSE SYSTEM CARDIAC CATHETERIZATION (01/30/2022 10:16 AM EDT) Specimen (Source) Anatomical Location Collection Method / Collectio n Time Received Time / Laterality Volume Narrative CARDIOMAC SYSTEM - 01/30/2022 2:09 PM ED T ?[facility] ? Cardiac Cathete rization/Intervention Report ? Patient Name: Kushal Don Mccollum. ? Procedure Date: 01/30/2022 ? A #: [id number] ? Primary Physician: Nobles, Vitaliy P ? Case #: [id number] ? File Name: [id number] ? Catheterization Order Number: [id number] ? [facility] ? Final Report [place], [place] ? Patient Name: ? Don E. Stewa rt ? ID#: ?[id number] ? : ?1945 ? Procedure Date: ? January 30, 2022 ? Case #: ? [id number] ? Room: ? 1 ? Case Physician: ? Fabian Lopez ?Start: ?08:54 ?Fellow: ? Eddi Elizabeth Jr., Barbara ?Admission: ??01/30/2022 ? Procedures: ?* Coronary Angiography ?* Left Heart Catheterization ?* Bypass Graft Study ?* Coronary Ultrasound ?* Coronary Stent Insertion ?* Peripheral Intravascular Ultr asound ? History ?Don Fatima is a 76 year o ld man. He has hypertension. The patient's ?smoking status is Former. He leach s hypercholesterolemia managed with lipid ?therapy. The patient has diabet es managed by oral medication and insulin. ?He has a prior history of coron adin artery disease. The patient is status ?post a remote myocardial infarc tion. He had a recent coronary ?intervention procedure. The pat ient had remote coronary artery bypass ?surgery. He has a history of an ejection fraction less than or equal to ?35%. The patient has a history of CHF. The CHF is classified as Systolic. ?The patient has a history of at rial fibrillation/atrial flutter. He has a ?history of peripheral vascular disease. The patient also has a history of ?chronic obstructive pulmonary d isease. Prior to the initiation of this ?procedure, the patient was kacie gnated as ASA Class III. The HA clinical ?frailty scale is 5: Mildly Frai l. ? Diagnostic Tests: ?Prior Coronary Angiography: ? Prior coronary angiograp hy was performed on 07/05/2017 and showed ? obstructive CAD. LV ejec tion fraction within 6 months is 35%. ?Electrocardiography: ? EKG was assessed by ECG. EKG was Abnormal. EKG showed ST Deviation ? >= 0.5 mm and other abno rmality. ?Medications Prior to Procedure: ? Aspirin, Angiotensin II Receptor Vaughn, Beta Vaughn and Statin. ? Indications for Diagnostic Cath: ?The priority of the diagnostic procedure was Urgent. The indication for ?the field laboratory operator visit is stable kn own CAD. Chest pain symptom assessment ?was: Typical Angina. ? Technique: ?A 6 SLFr sheath was inserted in the right radial artery utilizing the ?Seldinger technique. The right coronary artery was injected utilizing a ?IR 2.0 catheter. Coronary stent insertion was performed and the equipment ?utilized will be described in t he intervention summary section. 9,000 ?units of heparin were administe red. A total of 150cc of Iso-Rudy were ?opened, 124cc of Iso-Rudy were a dministered and 26cc of Iso-Rudy were ?wasted. Radiation: Fluoro time was 19.9 minutes, dose area product was ?32,300 mGYcm2 and air kerma was 803 mGY. See the case log for additional ?details. ?The patient received the follow ing medications prior to and during the ?procedure: ? Low Molecular Weight Hep aleksandra and Unfractionated Heparin. ? Hemodynamics: ?Left Heart Pressures ? Resting: ? Syst D iast ? EDP ?a ?v ? m ?Ao 107 ?? 49 ?72 ? Coronary Angiography: ?Dominance: Right ?Left Main ? This vessel was not inje cted. ?Left Anterior Descending ? This vessel was not inje cted. ?Left Circumflex ? This vessel was not inje cted. ?Right Coronary Artery ? There was a 99% calcifie d diffuse stenosis of the entire vessel ? segment of the right pos terior descending branch (RPDA) of the right ? coronary artery (RCA). ? Bypass Grafts: ?There was a total of two bypass grafts evaluated during this procedure. ?1. ?? Left internal mammary art anila graft to the LAD ? There was a left interna l mammary artery graft with a single ? anastomosis to the left anterior descending artery (LAD). ? This vessel was not inje cted. ?2. ?? Saphenous vein graft to brock hernandez OM1/Diagonal 1 ? There was a saphenous ve in graft with sequential anastomoses to the ? first obtuse marginal br anch (OM1) of the LCX and the first diagonal ? branch (Diagonal 1) of brock hernandez LAD. ? This vessel was not inje cted. ? Intravascular Imaging/Physiology: ?Intravascular Ultrasound was pe rformed in the entire vessel RPDA using a ?6 Fr IR 1.5 guiding catheter an d a 3.5 Fr [facility] [address] ??20 Mhz ?using Manual pullback. ??Imagin g was successful. ??Image quality was good. ?The entire vessel RPDA showed s evere diffuse atherosclerotic plaque. ? Indication for Intervention: ?Coronary intervention was indic ated for treatment of stable angina. The ?priority for the procedure was Elective. The NCDR indication for the ?procedure was Stable angina. Sy ntax Score was Intermediate. Staged PCI ?was performed for multivessel d isease. ? Intervention Summary: ?Right Posterior Descending Bran ch of the RCA ? Entire Vessel 99% ? Stent insertion was performed on the 99% stenosis in the ? entire vessel s egment of the RPDA. This was a de fe lesion. ? According to th e ACC/AHA classification system, this lesion ? was a type C hi gh risk lesion. Primary prevention of ? restenosis was the indication for stent insertion. This was ? the culprit les ion. A guidewire was placed across this lesion. ? Vessel flow pre intervention was YULISSA 3. Lesion length was ? 26mm. This lesi on was severely calcified. ? Stent insertion was accomplished through a 6 Fr. David Right ? 2.0 guide. ?? e lesion was predilated with a 2.00mm NC EUPHORA ? 15 MM balloon w ith a maximum inflation pressure of 26 ? atmospheres. ?? A premounted 2.00 x 26 mm [place] (TUCKER) ? was deployed wi th a maximum inflation pressure of 10 ? atmospheres. ?? Following stent deployment, the lesion was ? dilated using a 3.25mm NC EUPHORA 15 MM balloon with a maximum ? inflation press ure of 20 atmospheres. ? The final outco me was defined as successful. There was no ? residual stenos is following this intervention. The final YULISSA ? flow was 3. ? PCI of the prox imal and mid RPDA 95% lesion. ? A successful PC I was performed on the95% lesion in theproximal ? and mid RPDA le latonya. We used a6Fr IR 2.0guide. We administered ? heparinas the a nticoagulant and he was already loaded on ? Plavix as thean tiplatelet agent. We used aRunThroughwire to ? cross the lesio n into the distal diffusely diseased RPDA. We ? dilated the les ion using a1.5x 15mm balloon to 22atm. We ? performed IVUS which showed the entire RPDA had severe diffuse ? disease. We fur ther dilated the lesion with a 2.0 x 15 mm NC ? balloon to 24 a tm. Wedelivered along 2.0 x 26 mm HARDEEP Wheat[place] ? TUCKER stent and p ositioned it at the ostium of the RPDA ? extending into the mid RPDA and deployed it at 12 darshan. We then ? usedthe jacob em to post-dilate the stent to 20atm ? pressure. We us ed an additional 3.25 x 15 mm NC balloon to 24 ? darshan to post-dil ate the proximal part of the vessel.Final IVUS ? showedwell appo sedstent and no dissections. Following ? intervention th ere was 0% residual stenosis. There were no ? site complicati ons. ? Vascular Access: ?Vascular Access Management: ? Mechanical Compression o f the right radial artery access site was ? performed. ? Dual Antiplatelet (DAPT) Recommendations : ?Drug eluting stent (TUCKER) insert ed for stable ischemic heart disease ?(SIHD). ?P2Y12 Loading dose administered prior to arrival in the field laboratory operator. ?Recommended anti-platelet/anti- thrombotic regimen: ?Continue aspirin 81 mg daily fo r 1 month then stop. Restart aspirin 81 mg ?daily in 12 months and continue unless contraindicated. ?Continue clopidogrel 75 mg gomez y for 12 months then stop. ?Start warfarin to INR of 2.0-2. 5 now and continue for indefinitely. ?These recommendations are made at the time of the intervention. Patient ?and provider preferences or a c hanging clinical situation may require ?modification of this regimen. C [facility] Interventional Cardiology for ?questions. ?The 1 year bleeding risk as nusrat culated by the PRECISE DAPT score is High ?risk. ?High Bleeding Risk - Anticoagul ation and DAPT: ?- ??Assess ischemic and bleedin g risks using validated risk predictors ?(e.g. CHADS2-VASC, HAS-BLED, GA ECISE DAPT, DAPT Score) ?- ??Keep anticoagulant and anti platelet therapy duration as short as ?possible ?- ??Consider a target INR of 2. 0-2.5 if warfarin is used ?- ??Clopidogrel is the P2Y12 in hibitor of choice ?- ??Use low-dose (less than 100 mg daily) aspirin if aspirin is used ?- ??PPIs (pantoprazole preferre d) should be used in patients with a ?history of gastrointestinal ble eding and are reasonable to use in ?patients with increased risk of gastrointestinal bleeding ?- ??(Rec elizabeth 2.1 ??08 Dec 2019) ? Conclusions: ?* Obstructive disease of the RC A ?* Successful stent insertion of the entire vessel RPDA lesion ?* See Dual Antiplatelet (DAPT) Recommendations above ? Complications/Events: ?The patient had no complication s during these procedures. ? Comments: ?SUMMARY AND THERAPEUTIC RECOMME NDATIONS: ?Don Mccollum Stewartpresented with a NSTEMI, pulmonary edema,areduction of ?LVEFwith RWMAand mod MR in November 2021. He was found to have severely ?elevated LVEDP of 30 mmHg and o cclusion of theSVG to theDiag1 toOM1, and ?severe 95% disease of the ostiu m of the LCX. Additionally she had RPDA ?with severe 95% multiple tandem lesions with YULISSA 2 flow. That day in November ?2021, we stented the ostial LCX into the LM with a large 4.0 x 24 mm ?extending from the LCX into the LM, and post-dilated the LM part with a ?5.5 mm NC balloon. Following th is we noted brisk flow up the retrograde ?portion of the sequential graft into the Diag, thus we probably relieved ?his Diag1 ischemia as well. We let him recover from his ADHF and contrast ?load and today brought him back for a PCI of the diffusely diseased 95% ?RPDA. We stented the RPDA using a 2.0 x 26 mm HARDEEP [place] TUCKER stent. ?This completes the revasculariz ation of all the major vessels. He still ?has severe diffuse distal disea se, which will be medically managed. ?Please continue Aspirin 81 mg d aily,Plavix 75 mgand high intensity ?statin. He may restart Coumadin . Aspirin may be discontinued after 2 ?weeks of triple therapy. Plavix and coumadin continued thereafter. ?The case was reviewed and discu ssed with the patient and . ?I advised cardiac rehab. ?The attending physician was presen t for the entire procedure. ?Dr. Vitaliy Nobles M.D. performed th e coronary angiography, left heart ?catheterization, bypass graft stud y, IVUS # coronary, stent ?insertion-coronary and peripheral intravascular ultrasound. ? Vitaliy P Nobles, M.D. ? Electronically Signed by: Vitaliy P Nobles, M .D. ? Report Finalized: 01/30/2022 ??14:02 ? Procedure Note Vitaliy Nobles MD - 01/30/2022 [facility] Cardiac Catheterization/Intervention Re port Patient Name: Don Fatima Procedure Date: 01/30/2022 A #: [id number] Primary Physician: Vitaliy Nobles Case #: [id number] File Name: [id number] Catheterization Order Number: [id number] [facility] Final Report [place], [place] Patient Name: Don Fatima ID#: [id number] : 1945 Procedure Date: January 30, 2022 Case #: [id number] Room: 1 Case Physician: Vitaliy Nobles M.D. Start: 08:54 Fellow: Eddi Elizabeth Jr., M.D. Adm ission: 01/30/2022 Procedures: * Coronary Angiography * Left Heart Catheterization * Bypass Graft Study * Coronary Ultrasound * Coronary Stent Insertion * Peripheral Intravascular Ultrasound History Don Fatima is a 76 year old man. He has hypertension. The patient's smoking status is Former. He has hyperc holesterolemia managed with lipid therapy. The patient has diabetes manag ed by oral medication and insulin. He has a prior history of coronary georgie ry disease. The patient is status post a remote myocardial infarction. He had a recent coronary intervention procedure. The patient had remote coronary artery bypass surgery. He has a history of an ejectio n fraction less than or equal to 35%. The patient has a history of CHF. The CHF is classified as Systolic. The patient has a history of atrial fib rillation/atrial flutter. He has a history of peripheral vascular disease. The patient also has a history of chronic obstructive pulmonary disease. Prior to the initiation of this procedure, the patient was designated a s ASA Class III. The [facility] clinical frailty scale is 5: Mildly Frail. Diagnostic Tests: Prior Coronary Angiography: Prior coronary angiography was performe d on 07/05/2017 and showed obstructive CAD. LV ejection fraction w ithin 6 months is 35%. Electrocardiography: EKG was assessed by ECG. EKG was Abnorm al. EKG showed ST Deviation >= 0.5 mm and other abnormality. Medications Prior to Procedure: Aspirin, Angiotensin II Receptor Blocke r, Beta Vaughn and Statin. Indications for Diagnostic Cath: The priority of the diagnostic procedur e was Urgent. The indication for the field laboratory operator visit is stable known CAD. Chest pain symptom assessment was: Typical Angina. Technique: A 6 SLFr sheath was inserted in the rig radial artery utilizing the Seldinger technique. The right coronary artery was injected utilizing a IR 2.0 catheter. Coronary stent inserti on was performed and the equipment utilized will be described in the inter vention summary section. 9,000 units of heparin were administered. A t otal of 150cc of Iso-Rudy were opened, 124cc of Iso-Rudy were administe red and 26cc of Iso-Rudy were wasted. Radiation: Fluoro time was 19.9 minutes, dose area product was 32,300 mGYcm2 and air kerma was 803 mGY . See the case log for additional details. The patient received the following medi cations prior to and during the procedure: Low Molecular Weight Heparin and Unfrac tionated Heparin. Hemodynamics: Left Heart Pressures Resting: Syst Diast EDP a v m Ao 107 49 72 Coronary Angiography: Dominance: Right Left Main This vessel was not injected. Left Anterior Descending This vessel was not injected. Left Circumflex This vessel was not injected. Right Coronary Artery There was a 99% calcified diffuse steno sis of the entire vessel segment of the right posterior descendi ng branch (RPDA) of the right coronary artery (RCA). Bypass Grafts: There was a total of two bypass grafts evaluated during this procedure. 1. Left internal mammary artery graft t o the LAD There was a left internal mammary arter y graft with a single anastomosis to the left anterior descen ding artery (LAD). This vessel was not injected. 2. Saphenous vein graft to the OM1/Diag onal 1 There was a saphenous vein graft with s equential anastomoses to the first obtuse marginal branch (OM1) of t he LCX and the first diagonal branch (Diagonal 1) of the LAD. This vessel was not injected. Intravascular Imaging/Physiology: Intravascular Ultrasound was performed in the entire vessel RPDA using a 6 Fr IR 1.5 guiding catheter and a 3.5 Fr [facility] [address] 20 Mhz using Manual pullback. Imaging was succ essful. Image quality was good. The entire vessel RPDA showed severe di ffuse atherosclerotic plaque. Indication for Intervention: Coronary intervention was indicated for treatment of stable angina. The priority for the procedure was Elective . The NCDR indication for the procedure was Stable angina. Syntax Sco re was Intermediate. Staged PCI was performed for multivessel disease. Intervention Summary: Right Posterior Descending Branch of th e RCA Entire Vessel 99% Stent insertion was performed on the 99 % stenosis in the entire vessel segment of the RPDA. This was a de fe lesion. According to the ACC/AHA classification system, this lesion was a type C high risk lesion. Primary prevention of restenosis was the indication for stent insertion. This was the culprit lesion. A guidewire was kenny yara across this lesion. Vessel flow pre intervention was YULISSA 3 . Lesion length was 26mm. This lesion was severely calcifie d. Stent insertion was accomplished throug h a 6 Fr. Ikari Right 2.0 guide. The lesion was predilated wi a 2.00mm NC EUPHORA 15 MM balloon with a maximum inflation pressure of 26 atmospheres. A premounted 2.00 x 26 mm Hardeep Wheatland (TUCKER) was deployed with a maximum inflation p ressure of 10 atmospheres. Following stent deployment , the lesion was dilated using a 3.25mm NC EUPHORA 15 MM balloon with a maximum inflation pressure of 20 atmospheres. The final outcome was defined as succes sful. There was no residual stenosis following this interv ention. The final YULISSA flow was 3. PCI of the proximal and mid RPDA 95% le latonya. A successful PCI was performed on the95 % lesion in theproximal and mid RPDA lesion. We used a6Fr IR 2. 0guide. We administered heparinas the anticoagulant and he was already loaded on Plavix as theantiplatelet agent. We use d aRunThroughwire to cross the lesion into the distal diffus franco diseased RPDA. We dilated the lesion using a1.5x 15mm bal loon to 22atm. We performed IVUS which showed the entire RPDA had severe diffuse disease. We further dilated the lesion with a 2.0 x 15 mm NC balloon to 24 darshan. Wedelivered along 2. 0 x 26 mm HARDEEP [place] TUCKER stent and positioned it at the osti um of the RPDA extending into the mid RPDA and deploye d it at 12 darshan. We then usedthe stentballoon to post-dilate the stent to 20atm pressure. We used an additional 3.25 x 15 mm NC balloon to 24 darshan to post-dilate the proximal part of the vessel.Final IVUS showedwell apposedstent and no dissecti ons. Following intervention there was 0% residual sten osis. There were no site complications. Vascular Access: Vascular Access Management: Mechanical Compression of the right rad ial artery access site was performed. Dual Antiplatelet (DAPT) Recommendations : Drug eluting stent (TUCKER) inserted for s table ischemic heart disease (SIHD). P2Y12 Loading dose administered prior t o arrival in the field laboratory operator. Recommended anti-platelet/anti-thrombot ic regimen: Continue aspirin 81 mg daily for 1 alexandro h then stop. Restart aspirin 81 mg daily in 12 months and continue unless contraindicated. Continue clopidogrel 75 mg daily for 12 months then stop. Start warfarin to INR of 2.0-2.5 now an d continue for indefinitely. These recommendations are made at the t suyapa of the intervention. Patient and provider preferences or a changing clinical situation may require modification of this regimen. Consult D [facility] Interventional Cardiology for questions. The 1 year bleeding risk as calculated by the PRECISE DAPT score is High risk. High Bleeding Risk - Anticoagulation an d DAPT: - Assess ischemic and bleeding risks us ing validated risk predictors (e.g. CHADS2-VASC, HAS-BLED, PRECISE DA PT, DAPT Score) - Keep anticoagulant and antiplatelet t herapy duration as short as possible - Consider a target INR of 2.0-2.5 if w arfarin is used - Clopidogrel is the P2Y12 inhibitor of choice - Use low-dose (less than 100 mg daily) aspirin if aspirin is used - PPIs (pantoprazole preferred) should be used in patients with a history of gastrointestinal bleeding an d are reasonable to use in patients with increased risk of gastroi ntestinal bleeding - (Rec elizabeth 2.1 08 Dec 2019) Conclusions: * Obstructive disease of the RCA * Successful stent insertion of the ent eric vessel RPDA lesion * See Dual Antiplatelet (DAPT) Recommen dations above Complications/Events: The patient had no complications during these procedures. Comments: SUMMARY AND THERAPEUTIC RECOMMENDATIONS : Don Fatimapresented with aNSTEMI, pulmonary edema,areduction of LVEFwith RWMAand mod MR in November 2021. He was found to have severely elevated LVEDP of 30 mmHg and occlusion of theSVG to theDiag1 toOM1, and severe 95% disease of the ostium of the LCX. Additionally she had RPDA with severe 95% multiple tandem lesions with YULISSA 2 flow. That day in November 2021, we stented the ostial LCX into th e LM with a large 4.0 x 24 mm extending from the LCX into the LM, and post-dilated the LM part with a 5.5 mm NC balloon. Following this we no vlad brisk flow up the retrograde portion of the sequential graft into th e Diag, thus we probably relieved his Diag1 ischemia as well. We let him recover from his ADHF and contrast load and today brought him back for a P CI of the diffusely diseased 95% RPDA. We stented the RPDA using a 2.0 x 26 mm HARDEEP [place] TUCKER stent. This completes the revascularization of all the major vessels. He still has severe diffuse distal disease, whic h will be medically managed. Please continue Aspirin 81 mg daily,Kenny vix 75 mgand high intensity statin. He may restart Coumadin. Aspiri n may be discontinued after 2 weeks of triple therapy. Plavix and cou madin continued thereafter. The case was reviewed and discussed wit h the patient and . I advised cardiac rehab. The attending physician was present for the entire procedure. Dr. Vitaliy Nobles M.D. performed the cor onary angiography, left heart catheterization, bypass graft study, IV US # coronary, stent insertion-coronary and peripheral intra vascular ultrasound. Vitaliy Nobles M.D. Electronically Signed by: Yoselin Lopez Report Finalized: 01/30/2022 14:02 Vitaliy Nobles MD CARDIAC CATH ORDERABLES Performing Organization Address City/State/ZIP Code Phon e Number CARDIOMAC SYSTEM (ABNORMAL) POCT Glucose (01/30/2022 9:04 AM EDT) athologist [facility] Glucose 212 (H) 65 - 199 [facility] mg/dL [facility] Comment: Supplemental ranges: <140 mg/dL before meals <180 mg/dL all other times of the day Specimen Anatomical Collection Method Collection Time Receive d Time (Source) Location / / Volume Laterality Blood 01/30/2022 9:04 AM 2 9:04 EDT AM EDT Vitaliy Nobles MD POINT OF CARE TEST ORDERABLE S Performing Organization Address City/[facility]/[place] [address] (ABNORMAL) POCT Glucose (01/30/2022 8:10 AM EDT) athologist [facility] Glucose 224 (H) 65 - 199 [facility] [facility] Comment: Supplemental ranges: <140 mg/dL before meals <180 mg/dL all other times of the day Specimen Anatomical Collection Method Collection Time Receive d Time (Source) Location / / Volume Laterality Blood 01/30/2022 8:10 AM 2 8:10 EDT AM EDT Vitaliy Nobles MD POINT OF CARE TEST ORDERABLE S Performing Organization Address City/[facility]/[place] [address] documented in this encounter Visit Diagnoses Diagnosis ASCVD (arteriosclerotic cardiovascular d isease) Unspecified cardiovascular disease Atherosclerosis of [place] coronary arter y of [place] heart with angina pectoris with documented spasm ASHD (arteriosclerotic heart disease) Coronary atherosclerosis of unspecified type of vessel, [place] or graft ASCVD (arteriosclerotic cardiovascular d isease) Unspecified cardiovascular disease documented in this encounter Admitting Diagnoses Diagnosis CAD (coronary artery disease) Coronary atherosclerosis of unspecified type of vessel, [place] or graft documented in this encounter Administered Medications Inactive Administered Medications - up to 3 most recent administrations Medication Order MAR Action Action Date Dose Rate Site clopidogreL (Plavix) 300 mg tablet 1 dose, Starting on Wed01/30/22 at 1039, Until Wed at 1045, MADDISON FARMER: cabinet override clopidogreL (Plavix) tablet 600 mg Given 01/30/2022 10:45 AM EDT 600 mg 600 mg, Oral, ONCE, 1 dose, On Wed01/30/22 at 1100, Routine sodium chloride 0.9% infusion Continued Bag 01/30/2022 10:15 AM 50 mL/hr 50 mL/hr 50 mL/hr, Intravenous, EDT CONTINUOUS, Starting on Wed01/30/22 at 1045, Until Wed01/30/22 at 1244, Recovery (Recovery-Hospital Unit) documented in this encounter Active and Recently Administered Medications Times are shown in EDT. Scheduled Medication Order 01/28/2022 01/29/2022 01/30/2022 clopidogreL (Plavix) tablet 600 mg (COMPLETED) 1045 (Given - Provider: Maddison Farmer, VAMSI)1100 (Due) 600 mg, Oral, ONCE, 1 dose, On Wed01/30/22 at 1100, Routine magnesium sulfate 1 g in dextrose 5% 100 mL infusion 0845 (Due) 1 g, Intravenous, ONCE, 1 dose, On Wed at 0845, Administer over 60 Minutes Continuous Medication Order 01/28/2022 01/29/2022 01/30/2022 sodium chloride 0.9% infusion 10 15 (Continued Bag - Provider: aMddison Farmer, VAMSI) 50 mL/hr, Intravenous, CONTINUOUS, Start ing on Wed01/30/22 at 1045, Until Wed01/30/22 at 1244, Recovery (Recovery-Hospital Unit) PRN Medication Order 01/28/2022 01/29/2022 01/30/2022 aspirin EC tablet (CANCELED) 083 9 (Given - Provider: Katerin Kay RN) ONCE PRN, Starting on Wed01/30/22 at 0839 , Until Wed01/30/22 at 1025, Cath (Intra- Procedure), Routine fentaNYL (pf) (50 mcg/mL) multi-dose injection (CANCELED) 0837 (Given - Provider: Jet Reina RN) ONCE PRN, Starting on Wed01/30/22 at 0837 , Until Wed01/30/22 at 1025, Cath (Intra- Procedure), Routine heparin (porcine) (1,000 units/mL) injection (CANCELED) 0855 (Given - Provider: Katerin Kay RN)0923 (Given - Provider: Ktaerin Kay RN) ONCE PRN, Starting on Wed01/30/22 at 0855 , Until Wed01/30/22 at 1025, Cath (Intra- Procedure), Routine heparin (porcine) (1,000 units/mL) injection (CANCELED) 1023 (Given - Provider: Jet Reina RN) ONCE PRN, Starting on Wed01/30/22 at 1023 , Until Wed01/30/22 at 1229, Cath (Intra- Procedure), Routine iodixanoL (Visipaque) (320 mg/mL) injection solution (CANCELED) 1013 (Given - Provider: Vitaliy Nobles MD) ONCE PRN, Starting on Wed01/30/22 at 1013 , Until Wed01/30/22 at 1025, Cath (Intra- Procedure), Routine midazolam (pf) (Versed) (1 mg/mL) multi-dose injection (CANCELED ) 0838 (Given - Provider: Jet Reina RN) ONCE PRN, Starting on Wed01/30/22 at 0838 , Until Wed01/30/22 at 1025, Cath (Intra- Procedure), Routine niCARdipine (Cardene) (100 mcg/mL) dilution (FRAMING CONSULTANT) (CANCELED ) 0927 (Given - Provider: Vitaliy Nobles MD)0935 (Given - Provider: Vitaliy Nobles MD)0957 (Given - Provider: Vitaliy Nobles MD)1005 (Given - Provider: Vitaliy Nobles MD)1008 (Given - Provider: Vitaliy Nobles MD)1011 (Given - Provider: Vitaliy Nobles MD) ONCE PRN, Starting on Wed01/30/22 at 0927 , Until Wed01/30/22 at 1229, Intra- Operative (Intra-Procedure), Routine sodium chloride 0.9% infusion (CANCELED) 1013 (New Bag - Provider: Katerin Kay RN) CONTINUOUS PRN, Starting on Wed01/30/22 a t 1013, Until Wed01/30/22 at 1025, Cath (Intra-Procedure) documented in this encounter Care Teams Accounts Payable Representative Relationship Specialty Start Date End Date Lovely Vicente MD PCP - General 04/16/[address] [place] [address] documented as of this encounter
--- OUTSIDE RECORDS SUMMARY | 2022-02-06 13:29 | XMS_ITS | Encounter Summary ---
:1945 Author Organization [facility] [place] [address] Care Team Providers Name Role Phone Lovely Vicente MD Primary Care Provider Reason for Visit Auth/Cert Specialty Diagnoses / Procedures Referred By Contact Refer red To Contact Diagnoses ASCVD (arteriosclerotic cardiovascular disease) [I25.10] Vitaliy Nobles MD [facility] Procedures PRO PERC TRLUML CORONARY STENT W/ANGIO ONE ART/BRANCH CARDIAC CATHETERIZATION STENT PLACEMENT-SINGLE MAJOR CORONARY ARTERY OR BRANCH [facility] [place] [address] Referral ID Status Reason Start Date Expiration Date Visits Requ ested Visits Authorized [id number] 1 1 Encounter Details Date Type Department Care Team Description 01/30/2022 Laboratory Lab 3L Katalina ASCVD (arterios clerotic Appointment [facility] cardiovas cular disease) [place] [address] Social History Tobacco Use Types Packs/Day Years [...] 02/19/2022 Office Visit Cardiology Liz Poole PA [facility] er Cardiology Dept [place], [place] [address] (Wo rk) 03/12/2022 Office Visit Cardiology Vitaliy Nobles MD [facility] CARDIOLOGY [place], [place] [address] (Wo rk) documented as of this encounter Procedures Procedure Name Priority Date/Time Associated Diagnosis Comme nts HEMOGRAM Routine 01/30/2022 7:19 AM ASCVD (arterioscleroti c Results for this EDT cardiovascular disease) proc edure are in the results section. DIFFERENTIAL, Routine 01/30/2022 7:19 AM ASCVD (arteriosclerot ic Results for this AUTOMATED EDT cardiovascular disease) proc edure are in the results section. HC CBC,PLT & AUTO Routine 01/30/2022 7:19 AM ASCVD (arterioscl erotic DIFF EDT cardiovascular disease) BASIC METABOLIC Routine 01/30/2022 7:19 AM ASCVD (arterioscler otic Results for this PANEL EDT cardiovascular disease) proc edure are in (NON-FASTING) the results section. documented in this encounter Results (ABNORMAL) Differential, Automated (01/30/2022 7:19 AM EDT) [facility] gist Method Time Signature Neutrophils % 77.9 % [facility] Neutr Abs (ANC) 5.31 1.70 - [facility] 6.10 [facility] x10(3)/[facility] LABORATORY Lymphocytes % 12.0 % [facility] Lymphocytes Abs 0.8 (L) 0.9 - 3.2 [facility] x10(3)/[facility] LABORATORY Monocytes % 8.1 % [facility] Monocyte Abs 0.6 0.3 - 0.9 [facility] x10(3)/[facility] LABORATORY Eosinophils % 0.4 % [facility] Eosinophils Abs 0.0 0.0 - 0.4 [facility] x10(3)/[facility] LABORATORY Basophils % 0.6 % [facility] Basophils Abs 0.0 0.0 - 0.1 [facility] LAB[facility]ORY Immature Gran % 1.00 % [facility] Comment: Immature granulocytes(IG's)percentage an d absolute count will include metamyelocytes, myelocytes, and promyelo cytes. Blood smears from CBCs yielding IG's will be scanned manually for concor dance. If this scan disagrees with the automated IG or if promyelocytes are not ed, a manual differential will be performed. Melisa Gran Abs 0.07 (H) 0.00 - 0.04 x10(3)/[facility] LABORATORY Specimen Anatomical Collection Method Collection Time Receive d Time (Source) Location / / Volume Laterality Blood 01/30/2022 7:19 AM 7:21 EDT AM EDT Resulting Agency Comment Spec In Lab Zulma BROWN HEMATOLOGY ORDERABLES Performing Organization Address City/State/[place] [address] (ABNORMAL) Hemogram (01/30/2022 7:19 AM EDT) Analysis Performed At Patho logist Time Signature WBC 6.8 4.0 - 9.5 [facility] x10(3)/[facility] LABORATORY RBC 4.32 (L) 4.58 - [place] [facility] 5.54 [facility] x10(6)/[facility] LABORATORY Hemoglobin 13.0 (L) 13.7 - [facility] g/dL [facility] Hematocrit 39.8 (L) 40.5 - [facility] RYAN 48.5 % [facility] MCV 92.1 82.9 - [facility] 93.1 [facility] LAB[facility]ATORY MCH 30.1 27.5 - [place] 32.1 pg [facility] MCHC 32.7 32.0 - [facility] RYAN 35.7 g/dL [facility] Platelets 172 145 - 357 [facility] x10(3)/[facility] LABORATORY RDWSD 54.5 (H) 36.0 - [place] 45.0 [facility] LABORATORY RDWCV 16.2 (H) 11.4 - [facility] RYAN 13.8 % [facility] MPV 9.0 7.6 - 12.9 [facility] LABORATORY nRBC % Auto 0.0 % [facility] nRBC Abs Auto 0.000 0.000 - [facility] 0.000 [facility] x10(3)/[facility] LABORATORY Specimen Anatomical Collection Method Collection Time Receive d Time (Source) Location / / Volume Laterality Blood 01/30/2022 7:19 AM 7:21 EDT AM EDT Resulting Agency Comment Spec In Lab Zulma BROWN HEMATOLOGY ORDERABLES Performing Organization Address City/State/[place] [address] (ABNORMAL) Basic Metabolic Panel (non-fasting) (01/30/2022 7:19 AM EDT) P athologist Signature Glucose Lvl 237 (H) 65 - 199 [facility] mg/dL [facility] Comment: Diabetes: >=200 mg/dL plus symp toms BUN 34 (H) 10 - 20 mg/dL [facility] Creatinine 1.45 0.80 - 1.50 mg/dL [facility] Sodium 141 135 - 145 mmol/L [facility] Potassium 4.7 3.5 - 5.0 mmol/L [facility] Comment: Please note: ??Patients with WBC >100,00 0 may have falsely elevated Potassium levels. ??For accurate Potassium quantif ication in these patients send serum separator tube (gold top) for subsequent determinations. ??Contact the Clinical Chemistry Laboratory if there are any qu estions. Chloride 100 98 - 107 mmol/L [facility] CO2 30 22 - 31 mmol/L [facility] Anion Gap 11 5 - 15 mmol/L [facility] Calcium 9.5 8.5 - 10.5 mg/dL [facility] Estimated GFR 50 (L) >=60 mL/min/1.73 m?? [facility] Comment: This patient's estimated GFR was calcula vlad using the 2021 CKD-EPI equation. The estimated GFR can vary [...] Location / / Volume Laterality Blood 01/30/2022 7:19 AM 7:21 EDT AM EDT Resulting Agency Comment Spec In Lab Vitaliy Nobles MD CHEMISTRY ORDERABLES Performing Organization Address City/State/ZIP Code Phon e Number [place] [phone] documented in this encounter Visit Diagnoses Diagnosis ASCVD (arteriosclerotic cardiovascular d isease) Unspecified cardiovascular disease documented in this encounter Care Teams Hydrotel Operator Relationship Specialty Start Date End Date Lovely Vicente MD PCP - General 04/16/[address] [place] [address] documented as of this encounter
--- OUTSIDE RECORDS SUMMARY | 2022-02-06 13:29 | XMS_ITS | Encounter Summary ---
:1945 Author Organization [facility] Address [address] [place] [address] Care Team Providers Name Role Phone Unknown, Provider Primary Care Provider Encounter Details Date Type Department Care Team Description 03/05/[address] [facility] Eris Taylor MD Laboratory Services - [address] [place] [address] [place] [address] [phone] Social History Tobacco Use Types Packs/Day Years Used Date Never Assessed Sex Assigned at Date Recorded Not on file documented as of this encounter Plan of Treatment Not on filedocumented as of this encounter Procedures Procedure Name Priority Date/Time Associated Diagnosis Comme [facility] SURGICAL PATHOLOGY Routine 03/05/2014 10:34 Resul ts for this EDT procedure are i n the results section. documented in this encounter Results SURGICAL PATHOLOGY (03/05/2014 10:34 EDT) Pathology Report: SURGICAL PATHOLOGY REPORT [facility] Reports generated via electronic interface contain sorin ginal data; LAB however they are lacking the format of the original re port. Caution should be taken when reading/interpreting unfo rmatted reports. Name: ? DON HOANG ? Accession #: ? [id number] ? : ? 1945 (Age: 68) ??M ? Collect Date: ? 03/05/2014 ? Location: ? [facility] ? Receive Date: ? 03/06/20 14 ? Provider: LANDY TAYLOR MD Copy to: ? Final Pathologic Diagnosis: A. DUODENUM, SECOND PORTION, BIOPSY: - ??Small bowel mucosa with no specific pathologic fea tures. B. STOMACH, ANTRUM, BIOPSY: - ??Gastric antral mucosa with mild reactive (chemical ) gastropathy. C. ESOPHAGUS GASTRIC JUNCTION, BIOPSY: - ??Squamocolumnar junctional mucosa with histologic f eatures of reflux esophagitis. - ??Negative for intestinal metaplasia; Negative for d ysplasia. Document reviewed and electronically signed by: GINNA LOZOYA MD Report ??Date: 03/09/2014 17:18 By the signature above, the attending physician certif ies that he/she has personally conducted a gross and/or microscopic examin ation of the described specimens and rendered or confirmed the above diagnosi s. Specimen(s) Received: A. ?2nd portion B. ? Antrum C. ? EGJ Clinical History: GERD, ? Smith's; clinical diagnosis code: ??530.81, 787.1, 787.20 Gross Description: A. ?Received in formalin labelled with proper p atient identification (initials S, L) and 2nd portion is a s jasper cordova-brown tissue fragment (0.3 x 0.2 x 0.2 cm). Submitted intact in A1. B. ?Received in formalin labelled with proper p atient identification (initials S, L) and antrum is a single cordova-white tissue fragment (0.4 x 0.2 x 0.1 cm). Submitted intact in B1. C. ?Received in formalin labelled with proper p atient identification (initials S, L) and EGJ ar e two cordova-white tissues (0.2 x 0.1 x 0.1 cm and 0.2 x 0.2 x 0.1 cm). Entirely submitted in C1Madiha Ordonez 03/07/2014 12:31 PM End of Report Specimen Performing Organization Address City/State/ZIP Code Phon e Number [facility] [address] [place] [address] SERVICES [facility] [address] [place] [address] documented in this encounter Visit Diagnoses Not on filedocumented in this encounter Care Teams Laborer Tin Can Relationship Specialty Start Date End Date Unknown, Provider, PCP - General 03/07/14 07/12/14 documented as of this encounter
--- OUTSIDE RECORDS SUMMARY | 2022-02-06 13:29 | XMS_ITS | Clinical Summary ---
:1945 Author Organization [facility] [place] [address] Care Team Providers Name Role Phone Lovely Vicente MD Primary Care Provider Allergies Active Allergy Reactions Severity Noted Date Comments Lisinopril Other (See Comments) 12/08/2021 Cough Medications Medication Sig Dispensed Refills Start Date End Date Status ACCU-CHEK TERA PLUS 2-3 times daily 100 each 1 07/14/2017 Active TEST STRP Strip metFORMIN (GLUCOPHAGE) Take 1 tablet by 60 tablet 12 07/15/2017 Active 850 mg Tablet mouth 2 times daily (with meals). BD INSULIN PEN NEEDLE 1 each by Other 0 07/14/2017 Active UF MINI 31 gauge x route 4 times 10/08 Needle daily. Magnesium Oxide 500 mg Take 500 mg by 0 Active Capsule mouth daily. meTOPROLOL succinate Take 25 mg by 0 Active (TOPROL-XL) 25 mg mouth daily. 0.5 Tablet Sustained tablet of 50 mg Release 24 hr levothyroxine Take 1 tablet by 102 tablet 3 09/08/2017 Active (SYNTHROID) 175 mcg mouth daily. 1 Tablet tablet daily 6 days per week, and 2 tablets 1 day per week. Additional Information Patient taking differently: 175 mcg Oral DAILY, 1 tablet daily 6 days per week, and 2 tablets 1 day per week on Wednesday., Reported on 12/08/2021 TURMERIC ORAL Take 500 mg by mouth 2 0 Active times daily. ascorbic acid, Vitamin Take 500 mg by mouth 0 Active C, (VITAMIN C) 500 mg daily. Tablet LANTUS SOLOSTAR U-100 35 Units nightly. 0 Active INSULIN pen 9 atorvastatin (Lipitor) Take 10 mg by mouth 0 Active 40 mg Tablet daily. 5 days weekly. insulin lispro Inject 25 Units 0 Active (HumaLOG) Insulin Pen subcutaneously 3 times daily (before meals). losartan (COZAAR) 100 Take 50 mg by mouth 0 04/14/20 2 Active mg Tablet daily. 1 ferrous sulfate 325 mg Take 325 mg by mouth 0 Active (65 mg iron) Tablet daily (with breakfast). Tablet 4 days a week. apixaban (Eliquis) 5 mg Take 1 tablet by mouth 60 tablet 3 Active Tablet 2 times daily. 2 clopidogreL (Plavix) 75 Take 1 tablet by mouth 90 tablet 3 Active mg Tablet daily. 2 empagliflozin Take 1 tablet by mouth 30 tablet 3 Active (Jardiance) 10 mg daily. [address] 1 tablet under 90 tablet 12 Active (Nitrostat) 0.4 mg the tongue every 5 2 Tablet, Sublingual minutes as needed for Chest pain. pantoprazole EC Take 1 tablet by mouth 90 tablet 3 Active (Protonix) 40 mg daily. 2 Tablet, Delayed Release (E.C.) spironolactone Take 1 tablet by mouth 90 tablet 3 Active (Aldactone) 25 mg daily. 2 Tablet clobetasoL (TEMOVATE) APPLY TOPICALLY DAILY 0 Active 0.05 % Solution NEEDED FOR RASH 2 torsemide (Demadex) 20 Take 1 tablet by mouth 30 tablet 11 Active mg TabletIndications: daily. 2 Chronic systolic heart failure aspirin 81 mg Capsule 1 capsule by Per 14 capsule 0 Active PO/OG/NG route daily 2 2 for 14 days. Active Problems Problem Noted Date CAD (coronary artery disease) 01/30/2022 Admitted with CHF. CABG 2016. Found to have sequential vein graft down. 12/08/2021 OSMANI ok. PCI of LM/ostial Cx. Will stage RPDA for 2 wee ks. EDP 30. DM. MAIRA VICTORIA. ICM. Home Wednesday. Non-ST elevation myocardial infarction (NSTEMI) 2021 Acute HFrEF (heart failure with reduced ejection fract ion) 12/08/2021 On amiodarone therapy 10/08/2017 Overview: Formatting of this note is dif ferent from the original. 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 Delayed surgical wound healing 08/26/2017 Carpal tunnel syndrome 08/05/2017 Hx of malignant melanoma 08/05/2017 Hx of thyroid cancer 08/05/2017 Leg cramps 08/05/2017 Osteoarthrosis 08/05/2017 Ischemic foot 07/27/2017 Dependence on continuous positive airway pressure vent ilation 07/27/2017 Gastroesophageal reflux disease 07/27/2017 Hearing impaired 07/27/2017 Hyperlipidemia 07/27/2017 Hypomagnesemia 07/27/2017 Peripheral neuropathy 07/27/2017 Critical lower limb ischemia 07/20/2017 ASHD (arteriosclerotic heart disease) 07/06/2017 Overview: NSTEMI 3VCAD Ischemic Cardiomyopathy 07/08/2017 CABG Cardiomyopathy, ischemic 07/06/2017 Overview: 07/05/2017 LVEF=29% 10/07/2017 LVEF=45% 08/15/2018 LVEF= 30-35% Hypertension, accelerated, with systolic CHF, NYHA cla ss 3-4 07/06/2017 Overview: Elevated HTN, poorly responsive to NTG Nipride initiated STEMI (ST elevation myocardial infarction) 07/05/2017 Postoperative retention of urine 06/19/2014 BPH (benign prostatic hyperplasia) 11/28/2013 Atypical nevus of abdominal wall 07/31/2013 Urinary retention 04/05/2013 MARIA VICTORIA (obstructive sleep apnea) on CPAP 03/31/2013 Goiter 01/25/2013 Seborrheic psoriasis- scalp and ingtergluteal area 06/2013 Skin lesion of chest wall 10/04/2012 Melanoma 09/22/2011 Encounters Date Type Specialty Care Team Description 01/30/2022 Surgery Cardiology Vitaliy Nobles, CARDIAC MD CATHETERIZATION 01/30/2022 Laboratory Lab ASCVD Appointment (arteriosclerot ic cardiovascular disease) 01/30/2022 Hospital Encounter Vitaliy Nobles ASCVD (a rteriosclerotic cardiovascular disease); Atherosclerosis of [place] coronary artery of [place] heart with angina pectoris with documented spasm; ASHD (arteriosc lerotic heart disease) 01/28/2022 Orders Only Cardiology JEMIMA Gannon PA (arteriosclerot ic cardiovascular disease) 01/28/2022 Telephone Cardiology Chitra Angela Advice Rome Gomes RN 12/30/2021 Notes Only Cardiology Rebeka Deluca RN 12/25/2021 Office Visit Cardiology Ivone Poole systoli c heart STEPHANIE Hill failure 12/25/2021 Laboratory Lab Chronic systoli c heart Appointment failure 12/24/2021 Telephone [facility] Dayami Buckner 12/24/2021 Orders Only Cardiology JEMIMA Gannon PA (arteriosclerot ic cardiovascular disease) 12/15/2021 Telephone Cardiology Barbara Mera RN 12/12/2021 Refill Cardiology Janneth Padilla Medication R STEPHANIE Fletcher (Torsemide) 12/12/2021 Telephone Cardiology Barbara Mera RN 12/10/2021 Surgery Cardiology Vitaliy Nobles, CARDIAC MD CATHETERIZATION 12/08/2021 - Hospital Encounter Iker Cueavs Non-ST e levation myocardial infarction (NSTEMI); 12/12/[address] elevation myocardial infarction (STEM I), unspecified artery; Ifeanyi Truong Acute HFrEF ( heart failure with reduced ejection fraction) MD Yoselin 12/08/2021 External Results Cardiology None 12/07/2021 Ancillary Procedure Radiology Lovely Vicente MD 12/07/2021 External Results Central Scheduling 12/07/2021 Telephone Cardiology Eddi Elizabeth Jr., MD from Last 3 Months Immunizations Name Administration Dates Next Due Influenza PF, Split 03/29/2013 Influenza Vaccine, Whole 06/14/2006 Family History Medical History Relation Comments Lung Cancer Brother Relation Status Comments Brother Father Mother Social History Tobacco Use Types Packs/Day Years Used Date Former Smoker Cigarettes 3 5 Quit: 07/26/18 69 Smokeless Tobacco: Never Used Alcohol Use Standard Drinks/Week Comments No 0 (1 standard drink = 0.6 oz pure alcoho l) Sex Assigned at Date Recorded Not on file Last Filed Vital Signs Vital Sign Reading [...] Mass Index 29.5 01/30/2022 7:37 AM EDT Plan of Treatment Upcoming Encounters Date Type Specialty Care Team Description 02/19/2022 Laboratory Appointment Lab 02/19/2022 Office Visit Cardiology Liz Poole PA [facility] er Cardiology Dept [place] [phone] (Wo rk) 03/12/2022 Office Visit Cardiology Vitaliy Nobles MD [facility] ER CARDIOLOGY [place], [place] [address] (Wo rk) Health Maintenance Due Date Last Done Comments Covid-19 Vaccine (#1) 1950 Pneumoccocal Vaccine: 65+ (1 - PCV) 1951 Hepatitis C Screening 1964 Tdap adult 1965 Tetanus vaccine 1965 Zoster vaccine (1 of 2) 1996 AAA Screen 2011 Colonoscopy 01/16/2019 01/16/2014, 01/16/2014 Influenza (Flu) vaccine (1 of 1 - 03/26/2022 03/29/2013, Influenza standard series) Medical Devices Implanted Type Area Drosser Device Shelf Model / Identifier Expiration Serial / Date Lot Cable,Cut,Edg,Blnt,Ss,3tpr ([id number]) - [id number] IMPLANTS Midline: [employer] 04/01/2022 [id number] / Implanted: Qty: 4 on 07/07/2017 by Yuan Retana MD at [facility] [employer] - / [id number] Procedures Procedure Name Priority Date/Time Associated Diagnosis Comme nts DIFFERENTIAL, AUTOMATED Routine 01/30/2022 2:12 R esults for this PM EDT procedure are i n the results section. HEMOGRAM Routine 01/30/2022 2:12 Results for this [...] the results section. DIFFERENTIAL, AUTOMATED Routine 01/30/2022 7:19 ASCVD R esults for this AM EDT (arteriosclerotic procedure are in cardiovascular the results disease) section. HEMOGRAM Routine 01/30/2022 7:19 ASCVD Results for this AM EDT (arteriosclerotic procedure are in cardiovascular the results disease) section. HC CBC,PLT & AUTO DIFF Routine 01/30/2022 7:19 ASCVD AM EDT (arteriosclerotic cardiovascular disease) BASIC METABOLIC PANEL Routine 01/30/2022 7:19 ASCVD Res ults for this (NON-FASTING) AM EDT (arteriosclerotic procedure are in cardiovascular the results disease) section. LAB SCAN 12/30/2021 12:00 Results for this AM EDT procedure are i n the results section. LAB SCAN 12/29/2021 12:00 Results for this AM EDT procedure are i n the results section. DIFFERENTIAL, AUTOMATED Routine 12/25/2021 7:46 Chronic systol ic Results for this AM EDT heart failure procedure are in the results section. HEMOGRAM Routine 12/25/2021 7:46 Chronic systolic Results for this AM EDT heart failure procedure are in the results section. BASIC METABOLIC PANEL Routine 12/25/2021 7:46 Chronic systolic Results for this (NON-FASTING) AM EDT heart failure procedure are in the results section. HC CBC,PLT & AUTO DIFF Routine 12/25/2021 7:46 Chronic systoli c AM EDT heart failure HC VENIPUNCTURE Routine 12/25/2021 7:46 Chronic systolic Resul ts for this AM EDT heart failure procedure are in the results section. POCT GLUCOSE Routine 12/12/2021 7:42 Results for this AM EDT procedure are i n the results section. SCAN DOC: TELEMETRY 12/12/2021 6:00 STRIPS AM EDT DIFFERENTIAL, AUTOMATED Routine 12/12/2021 4:51 R esults for this AM EDT procedure are i n the results section. HEMOGRAM Routine 12/12/2021 4:51 Results for this AM EDT procedure are i n the results section. HC PROTHROMBIN TIME Routine 12/12/2021 4:51 Resul ts for this AM EDT procedure are i n the results section. BMP W/FASTING GLUCOSE Routine 12/12/2021 4:51 Res ults for this AM EDT procedure are i n the results section. HC MAGNESIUM, SERUM Routine 12/12/2021 4:51 Resul ts for this AM EDT procedure are i n the results section. HC CBC,PLT & AUTO DIFF Routine 12/12/2021 4:51 AM EDT POCT GLUCOSE Routine 12/12/2021 3:43 Results for this AM EDT procedure are i n the results section. POCT GLUCOSE Routine 12/11/2021 11:44 Results for this PM EDT procedure are i n the results section. POCT GLUCOSE Routine 12/11/2021 8:12 Results for this PM EDT procedure are i n the results section. POCT GLUCOSE Routine 12/11/2021 6:50 Results for this PM EDT procedure are i n the results section. SCAN DOC: TELEMETRY 12/11/2021 6:42 STRIPS PM EDT POCT GLUCOSE Routine 12/11/2021 4:00 Results for this PM EDT procedure are i n the results section. POCT GLUCOSE Routine 12/11/2021 12:01 Results for this PM EDT procedure are i n the results section. COVID-19 PCR Routine 12/11/2021 10:13 Results for this AM EDT procedure are i n the results section. POCT GLUCOSE Routine 12/11/2021 7:34 Results for this AM EDT procedure are i n the results section. POCT GLUCOSE Routine 12/11/2021 5:07 Results for this AM EDT procedure are i n the results section. DIFFERENTIAL, AUTOMATED Routine 12/11/2021 4:28 R esults for this AM EDT procedure are i n the results section. HEMOGRAM Routine 12/11/2021 4:28 Results for this AM EDT procedure are i n the results section. HC PROTHROMBIN TIME Routine 12/11/2021 4:28 Resul ts for this AM EDT procedure are i n the results section. BMP W/FASTING GLUCOSE Routine 12/11/2021 4:28 Res ults for this AM EDT procedure are i n the results section. HC MAGNESIUM, SERUM Routine 12/11/2021 4:28 Resul ts for this AM EDT procedure are i n the results section. HC CBC,PLT & AUTO DIFF Routine 12/11/2021 4:28 AM EDT SCAN DOC: TELEMETRY 12/11/2021 4:00 STRIPS AM EDT POCT GLUCOSE Routine 12/11/2021 3:58 Results for this AM EDT procedure are i n the results section. POCT GLUCOSE Routine 12/10/2021 11:45 Results for this PM EDT procedure are i n the results section. POCT GLUCOSE Routine 12/10/2021 7:54 Results for this PM EDT procedure are i n the results section. HC VENIPUNCTURE STAT 12/10/2021 7:46 Results f or this PM EDT procedure are i n the results section. HC VENIPUNCTURE Timed 12/10/2021 6:12 Results f or this PM EDT procedure are i n the results section. SCAN DOC: TELEMETRY 12/10/2021 6:01 STRIPS PM EDT POCT GLUCOSE Routine 12/10/2021 4:59 Results for this PM EDT procedure are i n the results section. POCT GLUCOSE Routine 12/10/2021 12:43 Results for this PM EDT procedure are i n the results section. EKG 12-LEAD STAT 12/10/2021 11:17 ST elevation Results for this AM EDT myocardial infarction proced ure are in (STEMI), unspecified the res ults artery section. CARDIAC CATHETERIZATION Routine 12/10/2021 10:54 Results for this AM EDT procedure are i n the results section. POCT GLUCOSE Routine 12/10/2021 10:30 Results for this AM EDT procedure are i n the results section. POCT GLUCOSE Routine 12/10/2021 9:48 Results for this AM EDT procedure are i n the results section. POCT GLUCOSE Routine 12/10/2021 9:07 Results for this AM EDT procedure are i n the results section. SCAN DOC: TELEMETRY 12/10/2021 9:05 STRIPS AM EDT POINT OF CARE BLOOD GAS Routine 12/10/2021 9:04 R esults for this HISTORICAL AM EDT procedure are i n the results section. POCT GLUCOSE Routine 12/10/2021 7:19 Results for this AM EDT procedure are i n the results section. HC UNFRACTIONATED Routine 12/10/2021 4:25 Results for this HEPARIN (HEP UFH) AM EDT procedure are in the results section. DIFFERENTIAL, AUTOMATED Routine 12/10/2021 4:25 R esults for this AM EDT procedure are i n the results section. HEMOGRAM Routine 12/10/2021 4:25 Results for this AM EDT procedure are i n the results section. HC PROTHROMBIN TIME Routine 12/10/2021 4:25 Resul ts for this AM EDT procedure are i n the results section. BMP W/FASTING GLUCOSE Routine 12/10/2021 4:25 Res ults for this AM EDT procedure are i n the results section. HC MAGNESIUM, SERUM Routine 12/10/2021 4:25 Resul ts for this AM EDT procedure are i n the results section. HC CBC,PLT & AUTO DIFF Routine 12/10/2021 4:25 AM EDT SCAN DOC: TELEMETRY 12/10/2021 4:22 STRIPS AM EDT POCT GLUCOSE Routine 12/10/2021 1:58 Results for this AM EDT procedure are i n the results section. POCT GLUCOSE Routine 12/09/2021 9:02 Results for this PM EDT procedure are i n the results section. HC UNFRACTIONATED Routine 12/09/2021 7:30 Results for this HEPARIN (HEP UFH) PM EDT procedure are in the results section. HC VENIPUNCTURE Routine 12/09/2021 7:30 Results f or this PM EDT procedure are i n the results section. POCT GLUCOSE Routine 12/09/2021 6:34 Results for this PM EDT procedure are i n the results section. POCT GLUCOSE Routine 12/09/2021 6:32 Results for this PM EDT procedure are i n the results section. SCAN DOC: TELEMETRY 12/09/2021 4:57 STRIPS PM EDT POCT GLUCOSE Routine 12/09/2021 4:19 Results for this PM EDT procedure are i n the results section. HC UNFRACTIONATED Routine 12/09/2021 1:29 Results for this HEPARIN (HEP UFH) PM EDT procedure are in the results section. POCT GLUCOSE Routine 12/09/2021 12:02 Results for this PM EDT procedure are i n the results section. POCT GLUCOSE Routine 12/09/2021 9:44 Results for this AM EDT procedure are i n the results section. EKG 12-LEAD Routine 12/09/2021 7:57 Non-ST elevation Results for this AM EDT myocardial infarction proced ure are in (NSTEMI) the results section. POCT GLUCOSE Routine 12/09/2021 7:28 Results for this AM EDT procedure are i n the results section. HEMOGLOBIN A1C Routine 12/09/2021 6:18 Results fo r this AM EDT procedure are i n the results section. PROTHROMBIN TIME Routine 12/09/2021 6:18 Results for this AM EDT procedure are i n the results section. HC UNFRACTIONATED Routine 12/09/2021 6:18 Results for this HEPARIN (HEP UFH) AM EDT procedure are in the results section. HC TROPONIN T STAT 12/09/2021 6:18 Results for this AM EDT procedure are i n the results section. DIFFERENTIAL, AUTOMATED Routine 12/09/2021 6:18 R esults for this AM EDT procedure are i n the results section. HEMOGRAM Routine 12/09/2021 6:18 Results for this AM EDT procedure are i n the results section. LIPID PANEL (REFLEX Routine 12/09/2021 6:18 Resul ts for this DIRECT LDL) AM EDT procedure are i n the results section. HC THYROID STIMULATING Routine 12/09/2021 6:18 Re sults for this HORMONE, SERUM AM EDT procedure are in the results section. HEPATIC FUNCTION PANEL Routine 12/09/2021 6:18 Re sults for this AM EDT procedure are i n the results section. BMP W/FASTING GLUCOSE Routine 12/09/2021 6:18 Res ults for this AM EDT procedure are i n the results section. HC MAGNESIUM, SERUM Routine 12/09/2021 6:18 Resul ts for this AM EDT procedure are i n the results section. HC VENIPUNCTURE Routine 12/09/2021 6:18 AM EDT SCAN DOC: TELEMETRY 12/09/2021 6:05 STRIPS AM EDT XR CHEST ONE VIEW STAT 12/09/2021 5:30 Results for this AM EDT procedure are i n the results section. BLOOD GAS 2 ARTERIAL Routine 12/09/2021 5:14 Resu lts for this AM EDT procedure are i n the results section. POCT GLUCOSE Routine 12/09/2021 4:46 Results for this AM EDT procedure are i n the results section. POCT GLUCOSE Routine 12/09/2021 3:01 Results for this AM EDT procedure are i n the results section. POCT GLUCOSE Routine 12/08/2021 10:55 Results for this PM EDT procedure are i n the results section. HC UNFRACTIONATED Routine 12/08/2021 10:03 Result s for this HEPARIN (HEP UFH) PM EDT procedure are in the results section. HC TROPONIN T STAT 12/08/2021 10:03 Results fo r this PM EDT procedure are i n the results section. POCT GLUCOSE Routine 12/08/2021 8:22 Results for this PM EDT procedure are i n the results section. POCT GLUCOSE Routine 12/08/2021 7:06 Results for this PM EDT procedure are i n the results section. SCAN DOC: TELEMETRY 12/08/2021 6:37 STRIPS PM EDT HC MAGNESIUM, SERUM Routine 12/08/2021 6:02 Resul ts for this PM EDT procedure are i n the results section. BASIC METABOLIC PANEL Routine 12/08/2021 6:02 Res ults for this (NON-FASTING) PM EDT procedure are in the results section. DIFFERENTIAL, AUTOMATED Routine 12/08/2021 6:02 R esults for this PM EDT procedure are i n the results section. HEMOGRAM Routine 12/08/2021 6:02 Results for this PM EDT procedure are i n the results section. HC TROPONIN T STAT 12/08/2021 6:02 Results for this PM EDT procedure are i n the results section. HC CBC,PLT & AUTO DIFF Routine 12/08/2021 6:02 PM EDT SCAN DOC: TELEMETRY 12/08/2021 5:58 STRIPS PM EDT RAPID COVID-19 PCR Routine 12/08/2021 5:00 Result s for this ([facility]/APD/NLH) PM EDT procedure are in the results section. EKG 12-LEAD STAT 12/08/2021 4:40 Non-ST elevation Results for this PM EDT myocardial infarction proced ure are in (NSTEMI) the results section. POCT GLUCOSE Routine 12/08/2021 4:34 Results for this PM EDT procedure are i n the results section. ECHO SCAN (SCAN) Routine 12/08/2021 Results for this procedure are i n the results section. FILM LIBRARY STORAGE Routine 12/07/2021 11:06 Res ults for this ONLY DX CHEST PM EDT procedure are in the results section. ECG SCAN Routine 12/07/2021 Results for thi s procedure are i n the results section. from Last 3 Months Results (ABNORMAL) Hemogram (01/30/2022 2:12 PM EDT)Only the most recent of8 results within the time period is included. Analysis Performed At [employer] Time Signature WBC 5.5 4.0 - 9.5 [facility] x10(3)/[facility] LABORATORY RBC 4.30 (L) 4.58 - [facility] 5.54 [facility] x10(6)/[facility] LABORATORY Hemoglobin 12.7 (L) 13.7 - [facility] 16.[facility] g/dL [facility] LABORATORY Hematocrit 39.4 (L) 40.5 - [facility] 48.5 % [facility] LABORATORY MCV 91.6 82.9 - [facility] 93.1 [facility] LABORATORY MCH 29.5 27.5 - [facility] 32.1 pg [facility] LABORATORY MCHC 32.2 32.0 - [facility] 35.7 g/dL [facility] LABORATORY Platelets 172 145 - 357 [facility] x10(3)/[facility] LABORATORY RDWSD 54.5 (H) 36.0 - [facility].0 [facility] LABORATORY RDWCV 16.4 (H) 11.4 - [facility] 13.8 % [facility] LABORATORY MPV 9.2 7.6 - 12.9 [facility] LABORATORY nRBC % Auto 0.0 % [facility] LABORATORY nRBC Abs Auto 0.000 0.000 - [facility] 0.000 [facility] x10(3)[facility] LABORATORY Specimen Anatomical Collection Method Collection Time Receive d Time (Source) Location / / Volume Laterality Blood 01/30/2022 2:12 PM 2 2:37 EDT PM EDT Resulting Agency Comment Spec In Lab Eddi Elizabeth Jr., MD HEMATOLOGY ORDERABLES Performing Organization Address City/State/[place] [address] (ABNORMAL) Differential, Automated (01/30/2022 2:12 PM EDT)Only the most recent of8 resultswithin the time period is included. P athologist Signature Neutrophils % 71.8 % [facility] LABORATORY Neutr Abs (ANC) 3.96 1.70 - [facility] 6.10 [facility] x10(3)/[facility] LABORATORY Lymphocytes % 16.3 % [facility] LABORATORY Lymphocytes Abs 0.9 0.9 - 3.2 [facility] x10(3)/[facility] LABORATORY Monocytes % 10.0 % [facility] LABORATORY Monocyte Abs 0.6 0.3 - 0.9 [facility] x10(3)/[facility] LABORATORY Eosinophils % 0.5 % [facility] LABORATORY Eosinophils Abs 0.0 0.0 - 0.4 [facility] x10(3)/[facility] LABORATORY Basophils % 0.5 % [facility] LABORATORY Basophils Abs 0.0 0.0 - 0.1 [facility] x10(3)/[facility] LABORATORY Immature Gran % 0.90 % [facility] LABORATORY Comment: Immature granulocytes(IG's)percentage an d absolute count will include metamyelocytes, myelocytes, and promyelo cytes. Blood smears from CBCs yielding IG's will be scanned manually for concor dance. If this scan disagrees with the automated IG or if promyelocytes are not ed, a manual differential will be performed. Melisa Gran Abs 0.05 (H) 0.00 - 0.04 x10(3)/[facility] LABORATORY Specimen Anatomical Collection Method Collection Time Receive d Time (Source) Location / / Volume Laterality Blood 01/30/2022 2:12 PM 2 2:37 EDT PM EDT Resulting Agency Comment Spec In Lab Eddi Elizabeth Jr., MD HEMATOLOGY ORDERABLES Performing Organization Address City/State/[place] [address] (ABNORMAL) Basic Metabolic Panel (non-fasting) (01/30/2022 2:12 PM EDT)Only the most recent of6 resultswithin the time period is included. athologist Signature Glucose Lvl 163 65 - 199 [facility] mg/dL [facility] LABORATORY Comment: Diabetes: >=200 mg/dL plus symp toms BUN 30 (H) 10 - 20 mg/dL [facility] LABORATORY Creatinine 1.47 0.80 - 1.50 mg/dL [facility] [facility] Sodium 140 135 - 145 mmol/L [facility] Potassium 4.2 3.5 - 5.0 mmol/L [facility] Comment: Please note: ??Patients with WBC >100,00 0 may have falsely elevated Potassium levels. ??For accurate Potassium quantif ication in these patients send serum separator tube (gold top) for subsequent determinations. ??Contact the Clinical Chemistry Laboratory if there are any qu estions. Chloride 101 98 - 107 mmol/L [facility] CO2 28 22 - 31 mmol/L [facility] Anion Gap 11 5 - 15 mmol/L [facility] Calcium 9.2 8.5 - 10.5 mg/dL [facility] Estimated GFR 49 (L) >=60 mL/min/1.73 m?? [facility] Comment: This patient's estimated GFR [...] Organization Address City/State/[place] [address] POCT Glucose (01/30/2022 1:41 PM EDT)Only the most recent of36 resultswithin the time period is included. athologist Signature POC Glucose 148 65 - 199 [facility] mg/dL [facility] Comment: Supplemental ranges: <140 mg/dL before meals <180 mg/dL all other times of the day Specimen Anatomical Collection Method Collection Time Receive d Time (Source) Location / / Volume Laterality Blood 01/30/2022 1:41 PM 2 1:41 EDT PM EDT Vitaliy Sandra Nobles MD POINT OF CARE TEST ORDERABLE S Performing Organization Address City/State/[place] [address] EKG 12 Lead (01/30/2022 10:33 AM EDT)Only the most recent of4 resultswithin the time period is included. Component Value Ref Range Test Analysis Performed Pathologis t Method Time At Signature Ventricular rate 64 BPM MUSE SYSTEM Atrial Rate 64 BPM MUSE SYSTEM P-R Interval 162 ms MUSE SYSTEM QRS Duration 94 ms MUSE SYSTEM Q-T Interval 422 ms MUSE SYSTEM QTC Calculated 435 ms MUSE SYSTEM (Bezet) Calculated P [place] 41 degrees MUSE SYSTEM Calculated R [place] -27 degrees MUSE SYSTEM Calculated T [place] 104 degrees MUSE SYSTEM INTERPRETATION Normal sinus rhythm MUSE SYSTEM Anterolateral infarct (cited on or before 09-DEC-2021) Abnormal ECG When compared with ECG of 10-DEC-2021 11:17, No significant change was found Confirmed by Gary Perez ([id number]) on 01/30/2022 5:57:5 2 PM Specimen Anatomical Collection Method Collection Time Receive d Time (Source) Location / / Volume Laterality 01/30/2022 10:33 01/30/2022 5:57 AM EDT PM EDT Vitaliy Nobles MD ECG ORDERABLES Performing Organization Address City/State/ZIP Code Phon e Number MUSE SYSTEM CARDIAC CATHETERIZATION (01/30/2022 10:16 AM EDT)Only the most recent of2 resultswithin the time period is included. Specimen (Source) Anatomical Location Collection Method / Collectio n Time Received Time / Laterality Volume Narrative CARDIOMAC SYSTEM - 01/30/2022 2:09 PM ED T ?[facility] ? Cardiac Cathete rization/Intervention Report ? Patient Name: Kushal, Don E. ? Procedure Date: 01/30/2022 ? A #: [id number] ? Primary Physician: Nobles, Vitaliy P ? Case #: [id number] ? File Name: [id number] ? Catheterization Order Number: [id number] ? [facility] ? Final Report [place], [place] ? Patient Name: ? Don E. Stewa rt ? ID#: ?[id number] ? : ?1945 ? Procedure Date: ? January 30, 2022 ? Case #: ? [id number] ? Room: ? 1 ? Case Physician: ? Fabian Lopez ?Start: ?08:54 ?Fellow: ? Eddi Elizabeth Jr., M.D. ?Admission: ??01/30/2022 ? Procedures: ?* Coronary Angiography [...] kacie gnated as ASA Class III. The CSHA clinical ?frailty scale is 5: Mildly Frai [...] procedure was Urgent. 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 Chest pain symptom assessment ?was: Typical Angina. ? Technique: ?A 6 SLFr sheath was inserted in the right radial artery utilizing the ?Storm technique. The right coronary artery was injected utilizing a ?IR 2.0 catheter. Coronary stent insertion was performed and the equipment ?utilized will be described in t intervention summary section. 9,000 ?units of heparin [...] guiding catheter an d a 3.5 Fr [employer] [place] ST ??20 Mhz ?using Manual pullback. ??Imagin [...] 6 Fr. David Right ? 2.0 guide. ??Th e lesion was predilated with a 2.00mm NC EUPHORA ? 15 MM balloon w ith a maximum inflation pressure of 26 ? atmospheres. ?? A premounted 2.00 x 26 mm [place] (TUCKER) ? was deployed wi a maximum inflation pressure of 10 ? [...] tm. Wedelivered along 2.0 x 26 mm [place] ? TUCKER stent and p ositioned it [...] dose administered prior to arrival in the circus laborer. ?Recommended anti-platelet/anti- thrombotic regimen: ?Continue aspirin 81 [...] may require ?modification of this regimen. C [facility] Interventional Cardiology for ?questions. ?The 1 year bleeding risk as nusrat culated by the PRECISE DAPT score is High ?risk. ?High Bleeding Risk - Anticoagul ation and DAPT: ?- ??Assess ischemic and bleedin g risks using validated risk predictors ?(e.g. CHADS2-VASC, HAS-BLED, [place] ECISE DAPT, DAPT Score) ?- ??Keep anticoagulant [...] Comments: ?SUMMARY AND THERAPEUTIC RECOMME NDATIONS: ?Don Veda Stewartpresented with a NSTEMI, pulmonary edema,areduction of [...] RPDA using a 2.0 x 26 mm [place] TUCKER stent. ?This completes the revasculariz ation [...] t for the entire procedure. ?Dr. Vitaliy P Nobles, M.D. performed th e coronary angiography, left heart ?catheterization, bypass graft stud y, IVUS # coronary, stent ?insertion-coronary and peripheral intravascular ultrasound. ? Vitaliy Nobles M.D. ? Electronically Signed by: Yoselin Lopez ? Report Finalized: 01/30/2022 ??14:02 ? Procedure Note Vitaliy Nobles MD - 01/30/2022 [facility] Cardiac Catheterization/Intervention Re port Patient Name: Don Fatima Procedure Date: 01/30/2022 A #: [id number] Primary Physician: Vitaliy Nobles Case #: [id number] File Name: [id number] Catheterization Order Number: [id number] [facility] Final Report [place], [place] Patient Name: Don Fatima ID#: [id number] : 1945 Procedure Date: January 30, 2022 Case #: [id number] Room: 1 Case Physician: Vitaliy Nobles [...] designated a s ASA Class III. The [facility] clinical frailty scale is 5: Mildly Frail. [...] e was Urgent. 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 Chest pain symptom assessment was: Typical Angina. Technique: A 6 SLFr sheath was inserted in the [facility] radial artery utilizing the Seldinger technique. The [...] 1.5 guiding catheter and a 3.5 Fr [employer] [facility] [place] [address] 20 Mhz using Manual pullback. Imaging [...] was accomplished throug h a 6 Fr. Muari Right 2.0 guide. The lesion was predilated wi a 2.00mm NC EUPHORA 15 MM balloon with a maximum inflation pressure of 26 atmospheres. A premounted 2.00 x 26 mm [place] (TUCKER) was deployed with a maximum inflation [...] Wedelivered along 2. 0 x 26 mm [place] TUCKER stent and positioned it at the [...] administered prior t o arrival in the circus laborer. Recommended anti-platelet/anti-thrombot ic regimen: Continue aspirin 81 [...] require modification of this regimen. Consult D [facility] Interventional Cardiology for questions. The 1 year [...] RPDA using a 2.0 x 26 mm [place] TUCKER stent. This completes the revascularization of [...] City/State/ZIP Code Phon e Number CARDIOMAC SYSTEM SCAN DOC: LAB (12/30/2021 12:00 AM EDT)Only the most recent of2 resultswithin the time period is included. Narrative This result has an attachment that is no t available. Unknown MEDIA MGR SCAN EXT ORDR/RSLT (ABNORMAL) pro-Brain Natriuretic Peptide (12/25/2021 7:46 AM EDT) athologist Signature ProBNP 1,380 (H) <=124 [facility] pg/mL [facility] Specimen Anatomical Collection Method Collection Time Receive d Time (Source) Location / / Volume Laterality Blood 12/25/2021 7:46 AM 2 8:01 EDT AM EDT Resulting Agency Comment Spec In Lab Zulma Plunkett MD CHEMISTRY ORDERABLES Performing Organization Address City/[facility]/ZIP [facility] [place] [address] SCAN DOC: TELEMETRY STRIPS (12/12/2021 6:00 AM EDT)Only the most recent of10 resultswithin the time period is included. Narrative This result has an attachment that is no t available. Unknown MEDIA MGR SCAN EXT ORDR/RSLT (ABNORMAL) BMP w/fasting Glucose (12/12/2021 4:51 AM EDT)Only the most recent of 4 resultswithin the time period is included. athologist Signature Glucose 152 (H) 65 - 99 [facility] Fasting mg/dL [facility] Comment: ?Fasting* Glucose Interpretive C riteria Normal ?65-99 mg/dL Impaired Fasting glucose ?100-125 mg/dL Consistent with Diabetes Mellitus ? >or= 126 mg/dL *Fasting is defined as no caloric intake for at least 8 hours In the absence of unequivocal hypergly cemia a plasma glucose value of >or= 126 mg/dL should be repeated on a subseq uent day. Diagnosis and Classification of Diabetes Mellitus, Position Statement from the [place] [employer]. ??Diabete s Care, Volume 33, Supplement 1, Jul 2009 BUN 52 (H) 10 - 20 mg/dL [facility] Creatinine 1.72 (H) 0.80 - 1.50 mg/dL [facility] Sodium 143 135 - 145 mmol/L [facility] Potassium 3.9 3.5 - 5.0 mmol/L [facility] Comment: Please note: ??Patients with WBC >100,00 0 may have falsely elevated Potassium levels. ??For accurate Potassium quantif ication in these patients send serum separator tube (gold top) for subsequent determinations. ??Contact the Clinical Chemistry Laboratory if there are any qu estions. Chloride 105 98 - 107 mmol/L [facility] CO2 21 (L) 22 - 31 mmol/L [facility] Anion Gap 17 (H) 5 - 15 mmol/L [facility] Calcium 8.9 8.5 - 10.5 mg/dL [facility] Estimated GFR 38 (L) >=60 mL/min/1.73 m?? [facility] Comment: This patient? s estimated glomerular filtration rate (eGFR) is between 38 mL/min/1.73 m2 (patients with less muscl e mass per kg body weight) and 44 mL/min/1.73 m2 (patients with more muscl e [...] (Source) Location / / Volume Laterality Blood 12/12/2021 4:51 AM 2 5:06 EDT AM EDT Resulting Agency Comment Spec In Lab Iker Cuevas MD CHEMISTRY ORDERABLES Performing Organization Address City/[facility] Code Phon e Number [address] (ABNORMAL) Prothrombin Time (12/12/2021 4:51 AM EDT)Only the most recent of4 resultswithin the time period is included. P athologist Signature PT 14.9 (H) 9.4 - 12.5 [facility] LABORATORY INR 1.3 [facility] Comment: An INR <2.0 indicates adequate procoagul ant activity for hemostasis in most patients without underlying bleeding dis orders, though the INR may not adequately reflect hemostatic capacity i n patients with liver disease and synthetic impairment. The recommended ta rget INR range for therapeutic anticoagulation is 2.0 ? 3.0 for most applications, though lower and higher ranges may be appropriate depending on c linical circumstances. Specimen Anatomical Collection Method Collection Time Receive d Time (Source) Location / / Volume Laterality Blood 12/12/2021 4:51 AM 2 5:06 EDT AM EDT Resulting Agency Comment Spec In Lab Iker Cuevas MD HEMATOLOGY ORDERABLES Performing Organization Address City/[facility] [place] [address] Magnesium (12/12/2021 4:51 AM EDT)Only the most recent of5 resultswithin the time period is included. athologist Signature Magnesium 1.02 0.69 - 1.07 [facility]/L [facility] Specimen Anatomical Collection Method Collection Time Receive d Time (Source) Location / / Volume Laterality Blood 12/12/2021 4:51 AM 5:06 EDT AM EDT Resulting Agency Comment Spec In Lab Iker Cuevas MD CHEMISTRY ORDERABLES Performing Organization Address City/State/[place] [address] COVID-19 PCR (12/11/2021 10:13 AM EDT) [facility] Method Time Signature SARS-CoV-2 Not Detected Not Detected BARBARA RNA [facility] Comment: This result should be interpreted in com bination with the clinical observations, patient history and epidem iological information in making a final diagnosis. For testing of asymptomatic i ndividuals, assay performance characteristics and clinical utility hav e not been evaluated. Testing for SARS-CoV-2 (Severe acute respiratory syn drome coronavirus 2, formerly known as 2019 novel coronavirus or 2019-nCoV) to aid in the diagnosis of COVID-19 is performed using the ChiScan Alinity m RNONA S-CoV-2 Assay as authorized by the FDA Emergency Use Authorization (EUA). This EUA assay is intended for In-vitro Diagnostic (IVD) use with respiratory sp ecimens such as nasopharyngeal swabs collected from individuals during the ac terrence phase of infection. This assay is performed based on the instructions for use provided by [employer] and additional guidance provided by CDC and FDA. Testing is performed in the Clinical Genomics and Advanced Technolog y Laboratory within the Department of Pathology and Laboratory Medicine at [facility], certified under the Clinical Laboratory Improvement Amendments of 1988 (CLIA), 42 U.S.C. 263a, to perform high complexi ty tests. Assay performance has been verified according to clinical laborator y regulatory requirements for use with specimens collected from individuals maritza pected of COVID-19. Test results are provided above. A result of Not Detecte d indicates that the viral RNA target is not present above the limit of detect ion, but does not preclude SARS-CoV-2 infection. False negative results may oc cur if a specimen is improperly collected, transported or handled; if am plification inhibitors are present; or if inadequate numbers of viral particles are present in the specimen. When a diagnostic test is negative, the possibi lity of a false negative result should be considered in the context of a patien t's recent exposures and the presence of clinical signs and symptoms consisten t with COVID-19. A result of Detected indicates that RNA from SARS-CoV-2 was d etected and the patient is infected. As required or requested by [facility], positive specimens may be sent for additional testing. Positive an d negative predictive values for this test are highly dependent on disease pre valence. A result of Invalid indicates that neither the viral RNA tar gets nor the internal control target was detected. An invalid result suggests the presence of inhibitors. Recollection and re-testing is recommend ed in the case of an invalid result. CDC COVID-19 criteria for testing on hum an specimens and clinical management guidance information are available at [facility] CDC Coronavirus Disease 2019 (COVID-19) webpage under Information fo r Healthcare Professionals (https://www.cdc.gov/coronavirus/2019-nc ov/hcp/index.html) Additional information about this and ot her EUA tests can be found in provider and patient fact sheets at the following FDA website: https://www.fda.gov/medical-devices/lksmrfjyrhj-mdpgmoj-7020-qnzrf-57-lffcidcdv- kdd-omkrihbaaluroc-kccyshi-devices/bvogh-fncuylkzrvk-cwmm SARS-Cov-2 RNA Source [facility] Specimen (Source) Anatomical Collection Method Collection Time Re ceived Time Location / / Volume Laterality Nasopharyngeal Swab 12/11/2021 10:13 11/23 AM EDT 11:16 AM EDT Comment: Symptoms->Surveillance Resulting Agency Comment Spec In Lab Iker Cuevas MD MICROBIOLOGY - GENERAL ORDER [place] Performing Organization Address City/State/[place] [address] Potassium (12/10/2021 7:46 PM EDT) athologist Signature Potassium 4.2 3.5 - 5.0 [facility] mmol/L [facility] Comment: Please note: ??Patients with WBC >100,00 0 may have falsely elevated Potassium levels. ??For accurate Potassium quantif ication in these patients send serum separator tube (gold top) for subsequent determinations. ??Contact the Clinical Chemistry Laboratory if there are any qu estions. Specimen Anatomical Collection Method Collection Time Receive d Time (Source) Location / / Volume Laterality Blood 12/10/2021 7:46 PM 2 8:42 EDT PM EDT Resulting Agency Comment Spec In Lab Iker Cuevas MD CHEMISTRY ORDERABLES Performing Organization Address City/[facility] [place] [address] (ABNORMAL) Point of Care Blood Gas Historical (12/10/2021 9:04 AM EDT) [facility] Method Time Signature POC pH 7.40 7.35 - [facility] 7.45 [facility] POC PCO2 40 35 - 45 [facility] mmHg [facility] POC PO2 63 (L) 85 - 104 [facility] mmHg [facility] POC Base Excess 0.0 -3.0 - 3.0 [facility] K mmol/L [facility] POC HCO3 24.8 20.0 - [facility] 26.0 [facility] mmol/[facility] POC Sodium 143 135 - 145 [facility] mmol/L [facility] POC Potassium 3.7 3.5 - 5.0 [facility] mmol/L [facility] POC Ionized Ca 1.07 (L) 1.15 - [facility] 1.33 [facility] mmol/[facility] POC Hematocrit 30.0 (L) 40.0 - [facility] 51.0 % [facility] POC Calc Hgb 10.2 (L) 13.7 - [facility] 17.5 g/dL [facility] Comment: The calculation of hemoglobin f rom hematocrit assumes a normal MCHC. POC Bgas Loc CC LAB [facility] Specimen Anatomical Collection Method Collection Time Receive d Time (Source) Location / / Volume Laterality Blood 12/10/2021 9:04 AM 2 EDT 12:00 PM EDT Ifeanyi Truong MD CHEMISTRY ORDERABLES Performing Organization Address City/[facility]/[place]IP [place] [address] Heparin (unfractionated) Level (12/10/2021 4:25 AM EDT)Only the most recent of5 resultswithin the time period is included. athologist Signature Heparin UFH 0.69 IU/mL [facility]ATORY Comment: Heparin (anti-Xa) levels should be deter mined in a plasma sample that has been drawn 6 hours after a dose change to gera roximate steady-state for continuous heparin infusions. Indication specific Heparin (anti-Xa) le vels based on order set selection: Acute DVT or PE treatment: 0.3 ? 0.7 IU/mL Thrombosis Prevention (eg. atrial fibril lation, ian-procedural bridging, mechanical valves): 0.3 ? 0.7 IU/mL Acute Coronary Syndrome: 0.3 ? 0.7 IU/mL Stroke Indications: 0.3 ? 0.5 IU/mL Ultra-low intensity (select indications in cardiac surgery): 0.1 ? 0.3 IU/mL Specimen Anatomical Collection Method Collection Time Receive d Time (Source) Location / / Volume Laterality Blood 12/10/2021 4:25 AM 4:34 EDT AM EDT Resulting Agency Comment Spec In Lab Iker Cuevas MD HEMATOLOGY ORDERABLES Performing Organization Address City/State/ZIP Code Phon e Number [address] (ABNORMAL) Troponin (12/09/2021 6:18 AM EDT)Only the most recent of3 results within the time period is included. [facility] Troponin-T 1.13 (H) 0.00 - [facility] 0.00 ng/mL [facility] Comment: The 99th percentile for Troponin T is le ss than 0.01 ng/mL, any detectable cTnT concentration using this assay should be considered elevated. According to the third universal definit ion of myocardial infarction the following criteria with a clinical prese ntation consistent with acute myocardial ischemia meets the diagnosis for a myocardial infarction (NH). Detection of a rise and/or fall of cTnT, with at least one value greater than the 99th percentile (> or = 0.01) and wi th at least one of the following ?? Symptoms of ischemia ?? New or presumed new significant ST-se gment-T wave (ST-T) changes or new left bundle branch block (LBBB) ?? Development of pathologic Q waves in the ECG ?? Imaging evidence of new loss of viabl e myocardium or new regional wall motion abnormality ?? Identification of an intracoronary th rombus by angiography or autopsy Samples for cTnT testing should be obtai pedro luis serially upon first assessment and again 3 to 6 hours later. If the clinica l suspicion is high and previous samples have been negative an additional sample may be indicated. Reference: Third [place] Definition of Myocardial Infarction. Journal of the [place] College [employer] 2012;60:1581-98 Specimen Anatomical Collection Method Collection Time Receive d Time (Source) Location / / Volume Laterality Blood 12/09/2021 6:18 AM 2 6:33 EDT AM EDT Resulting Agency Comment Spec In Lab Iker Cuevas MD CHEMISTRY ORDERABLES Performing Organization Address City/[facility]/[place] [address] TSH (12/09/2021 6:18 AM EDT) P athologist Signature TSH 1.60 0.27 - 4.20 [facility] mcIU/mL [facility] Comment: Reference Interval (mcIU/mL): Females: ??First Trimester: 0.23-3.88 ??Second Trimester: 0.22-3.90 ??Third Trimester: 0.44-4.66 Specimen Anatomical Collection Method Collection Time Receive d Time (Source) Location / / Volume Laterality Blood 12/09/2021 6:18 AM 2 6:33 EDT AM EDT Resulting Agency Comment Spec In Lab Iker Cuevas MD CHEMISTRY ORDERABLES Performing Organization Address City/[facility]/[place] [address] (ABNORMAL) Hemoglobin A1c (12/09/2021 6:18 AM EDT) Analysis Performed At Patho logist Time Signature Hemoglobin A1C 7.4 (H) 4.3 - 5.6 [facility] Comment: Reference Range: 4.3 - 5.6% 5.7 - 6.4% - Increased Risk of Developin g Diabetes Mellitus >= 6.5% - Consistent with diagnosis of D iabetes Mellitus In the absence of hyperglycemia (i.e. pl asma glucose > 200 mg/dL) or classic symptoms of hyperglycemia a repeat measu rement of HbA1c should be performed on a separate sample to confirm the diagnos is. Diagnosis and Classification of Diabetes Mellitus, Diabetes Care 2013; 36: Suppl. 1, S67-74 Est Avg Gluc See note mg/dL BARBARA DAVIS [facility] Comment: Estimated Average Glucose not appropriat e for patients over 70 years of age. eAG equivalents for HbA1c percentages: HbA1c(%) ?eAG(mg/dL) 6.0 ?126 6.5 ?140 7.0 ?154 7.5 ?169 8.0 ?183 8.5 ?197 9.0 ?212 9.5 ?226 10.0 ? 240 Limitations: The eAG calculation has not been validated on women, individuals below 18 years old and above 70 years old, and individuals with hemoglobinopathies. Additional resources are available on [facility] ADA website. Macario HAMMOND, Ruthann J, Deysi R, et al. ??Tr anslating the A1C assay into estimated average glucose values. ??Diabetes Care 2008:31(8):2773-8206. Specimen Anatomical Collection Method Collection Time Receive d Time (Source) Location / / Volume Laterality Blood Venous Draw / 12/09/2021 6:18 AM 12/10/19 22 Unknown EDT 12:24 PM EDT Resulting Agency Comment Spec In Lab Migdalia BROWN CHEMISTRY ORDERABLES Performing Organization Address City/State/ZIP Code Phon e Number [address] Hepatic Function Panel (12/09/2021 6:18 AM EDT) athologist Signature Total Protein 7.3 6.1 - 8.0 [place] g/dL [facility] LABORATORY Albumin 4.2 3.2 - 5.2 [place] [facility] g/dL [facility] AST 25 0 - 39 [place] unit/L [facility] ALT 15 0 - 55 [place] unit/L [facility] Alk Phos 75 40 - 130 [facility] unit/L [facility] Total 1.1 0.2 - 1.3 [place] Bilirubin mg/dL [facility] Bili, Direct 0.2 0.0 - 0.3 [facility]ORY Specimen Anatomical Collection Method Collection Time Receive d Time (Source) Location / / Volume Laterality Blood 12/09/2021 6:18 AM 6:33 EDT AM EDT Resulting Agency Comment Spec In Lab Iker Cuevas MD CHEMISTRY ORDERABLES Performing Organization Address City/[facility]/ZIP Code Phon e Number [address] Lipid Panel (Reflex Direct LDL) (12/09/2021 6:18 AM EDT) athologist Signature Chol, Total 105 mg/dL [facility] Comment: Lower Risk: <200 mg/dL Average Risk: 200-239 mg/dL Higher Risk: >bp=859 mg/dL Triglycerides 133 mg/dL [facility] LABOR[facility]ORY Comment: Average Risk/Lower Risk: <150 mg/dL Borderline High Risk: 150-199 mg/dL High Risk: 200-499 mg/dL Very High Risk: >hq=477 mg/dL HDL 42 mg/dL [facility] LABOR[facility] Comment: Males: ?? Higher Risk: <40 mg/dL Females: ?? Higher Risk: <50 mg/dL LDL Cholesterol 36 mg/dL [facility] Comment: Lowest Risk: <100 mg/dL Lower Risk: 100-129 mg/dL Borderline High Risk: 130-159 mg/dL High Risk: 160-189 mg/dL Very High Risk: >gx=696 mg/dL Chol/HDL Ratio 2.5 ratio [facility] Lipid Interpretation See Note [facility] Comment: Lipid management should be guided by a p atient? s ASCVD risk, goals and preferences. ACC/AHA Guidelines recommend high intens ity statin if clinical ASCVD or LDL greater than or equal to 190 mg/dL. http://[employer].[place] S&T/VRS-YIF-Erpcklnmu Adults aged 40-75 with LDL 70-189 mg/dL should have their 10 year ASCVD risk estimated with the ACC/AHA ASCVD risk es timator http://tools.acc.org/FZVLP-Pjnw-Wgocwbfn r/ Statin should be discussed if risk great er than or equal to 7.5% in non-diabetics. With diabetes, moderate i ntensity statin is recommended if risk less than 7.5%, high intensity if risk g reater than or equal to 7.5%. Annual lipid monitoring on statins is no t necessary. Evaluate secondary causes of Triglycerid es greater than 500 mg/dL or LDL greater than 190 mg/dL: See table 6 of A CC/AHA Guideline. Lifestyle modification is a critical com ponent of ASCVD risk reduction. Specimen Anatomical Collection Method Collection Time Receive d Time (Source) Location / / Volume Laterality Blood 12/09/2021 6:18 AM 2 6:33 EDT AM EDT Resulting Agency Comment Spec In Lab Iker Cuevas MD CHEMISTRY ORDERABLES Performing Organization Address City/State/[place] [address] XR Chest One View (12/09/2021 5:30 AM EDT) Anatomical Region Laterality Modality Chest N/A Digital Radiography Specimen (Source) Anatomical Location Collection Method / Collectio n Time Received Time / Laterality Volume Impressions 12/09/2021 5:35 AM EDT * ??Increased bilateral multifocal airspace opacities, more prominent and confluent on the right, may reflect asym metric edema or multifocal infection. * ??Unchanged pulmonary vascular congest ion and cardiomegaly. Thank you for letting us participate in the care of this patient. ??If you are a health care provider and have any questi ons regarding this report, please contact the number below. ??For patients who have questions please contact the health career development associate that requested your imaging first. ? Electronically signed by: Yoselin White, [facility] ([phone]), at 12/09/2021 5:35 AM Narrative 12/09/2021 5:35 AM EDT EXAMINATION: XR CHEST ONE VIEW CLINICAL HISTORY: worsening shortness of breath TECHNIQUE: 1 view of the chest COMPARISON: Chest x-ray 12/07/2021 and 03/20/2012. FINDINGS: Increased bilateral multifocal airspace opacities, more prominent and confluent on the right. No sizable pleural effusio n or pneumothorax. Unchanged pulmonary vascular congestion and cardiomegaly. No interval osseous change. Unremarkable upper abdomen. Procedure Note Meet Fu MD - 12/09/2021Formattin g of this note might be different from the original. EXAMINATION: XR CHEST ONE VIEW CLINICAL HISTORY: worsening shortness of breath TECHNIQUE: 1 view of the chest COMPARISON: Chest x-ray 12/07/2021 and 03/20/2012. FINDINGS: Increased bilateral multifocal airspace opacities, more prominent and confluent on the right. No sizable pleural effusio n or pneumothorax. Unchanged pulmonary vascular congestion and cardiomegaly. No interval osseous change. Unremarkable upper abdomen. IMPRESSION * Increased bilateral multifocal airspac e opacities, more prominent and confluent on the right, may reflect asym metric edema or multifocal infection. * Unchanged pulmonary vascular congestio n and cardiomegaly. Thank you for letting us participate in the care of this patient. If you are a health care provider and have any questi ons regarding this report, please contact the number below. For patients w ho have questions please contact the health career development associate that requested your imaging first. Electronically signed by: Yoselin White, [facility] ([phone]), at 12/09/2021 5:35 AM Amber Sanches MD IMG DX ORDERABLES (ABNORMAL) BLOOD GAS 2 ARTERIAL (12/09/2021 5:14 AM EDT) Analysis Performed At Patho logist Time Signature pH Art 7.43 7.35 - [facility] 7.45 [facility] LABORATORY pCO2 Art 36 35 - 45 [facility] LABORATORY pO2 Art 67 (L) 85 - 104 [facility] LABORATORY HCO3 Art 23.4 20.0 - [facility] 26.0 [facility] mmol/L [facility] LABORATORY BE Art -0.9 -3.0 - 3.0 [facility] mmol/L [facility]OR[facility]ORY Hgb Blood Gas 13.2 (L) 13.7 - [facility] 16.5 g/dL [facility] O2HB Art 91.3 (L) 94.0 - [facility] 97.0 % [facility] LABORATORY COHB Art 0.4 % [facility] Comment: Nonsmokers: 0.5-1.5% COHB Smokers: Variable, but usually less than 10% Toxic: 20-30% COHB Lethal: Greater than 60% COHB METHB Art 0.4 <=1.5 % [facility] Na Whole Blood 138 135 - 145 mmol/L [facility] K Whole Blood 4.1 3.5 - 5.0 mmol/L [facility] Comment: Please note: Patients with WBC >100,000 may have falsely elevated Potassium levels. Contact the Clinical Chemistry L aboratory if there are any questions. ICa Whole Blood 1.09 (L) 1.15 - 1.33 mmol/L [facility] Comment: Note: ??Total bilirubin higher than 20 m g/dL may lead to falsely low ionized calcium. CL Whole Blood 104 98 - 107 mmol/L [facility] Gluc Whole Bld 223 (H) 65 - 199 mg/dL [facility] Comment: Diabetes: >=200 mg/dL plus symp toms. Lactate WB 2.7 (H) 0.5 - 2.2 mmol/L [facility] FIO2 Art 35 % [facility] Flow Art 8.0 LPM [facility] PF Ratio Art 191 [facility] Specimen Anatomical Collection Method Collection Time Receive d Time (Source) Location / / Volume Laterality Blood 12/09/2021 5:14 AM 5:14 EDT AM EDT Iker Cuevas MD CHEMISTRY ORDERABLES Performing Organization Address City/State/[place] [address] COVID-19 PCR (12/08/2021 5:00 PM EDT) [facility] Method Time Signature SARS-CoV-2 Not Detected Not Detected [facility] RNA PCR [facility] Comment: This result should be interpreted in com bination with the clinical observations, patient history and epidem iological information. For testing of asymptomatic individuals, assay performa nce characteristics and clinical utility have not been evaluated. Testing for SARS-CoV-2 (Severe acute respiratory syndrome coronavirus 2, form erly known as 2019 novel coronavirus or 2019-nCoV) to aid in the diagnosis of CO VID-19 is performed using the Simplexa COVID-19 Direct Assay by [employer] as authorized by the FDA issued Emergency Use Authorization (EUA). This assay is intended for In-vitro Diagnostic (IVD) use with nasopharyngeal swabs collected from individuals meeting the CDC criteria for testing. Th e assay is performed based on the instructions for use and additional guid ance provided by the FDA. Testing is performed in the Microbiology Laboratory within the Department of Pathology and Laboratory Medicine at [facility], certified under the Clinical Laboratory Improvement Amendmen ts of 1988 (CLIA), 42 U.S.C. section 263a, to perform high complexity tests. Assay performance has been verified according to clinical laboratory regulat ory requirements. Test results are provided above. A resul t of Not Detected indicates that the viral RNA target is not present but does not preclude SARS-CoV-2 infection. False negative results may occur if a sp ecimen is improperly collected, transported or handled; if amplification inhibitors are present; or if inadequate numbers of viral particles ar e present in the specimen. A result of Detected suggests a current or recent infection and the patient is presumed to be infected. Positive and negative pr edictive values for this test are highly dependent on disease prevalence. A result of Invalid indicates the inability to conclusively determine the presence or absence of SARS-CoV-2 RNA in the sample which can be due to a vari ety of factors. Recollection is recommended in the case of an invalid re sult. CDC COVID-19 criteria for testing on hum an specimens and clinical management guidance information are available at [facility] CDC Coronavirus Disease 2019 (COVID-19) webpage under Information fo r Healthcare Professionals (https://www.cdc.gov/coronavirus/2019-nc ov/hcp/index.html). Additional information about this and ot her EUA tests can be found in provider and patient fact sheets at the following FDA website: https://www.fda.gov/medical-devices/uhljkojmouz-pzhosup-3405-wmybr-02-kdivbwdnl- mxt-yjmaxveyjhqjhi-ewrqeyp-devices/pwdmb-mfemasxfsjs-kxpk SARS-CoV-2 Source [facility] Swab [facility] Specimen (Source) Anatomical Collection Method Collection Time Re ceived Time Location / / Volume Laterality Nasopharyngeal Swab 12/08/2021 5:00 12/08 PM EDT 6:03 PM EDT Comment: Symptoms->Surveillance Resulting Agency Comment Spec In Lab Iker Cuevas MD MICROBIOLOGY - GENERAL ORDER [place] Performing Organization Address City/State/[place] [address] Scan Doc: Echo (12/08/2021) Narrative This result has an attachment that is no t available. None MEDIA MGR SCAN EXT ORDR/RSLT Film Library- Storage Only DX Chest (12/07/2021 11:06 PM EDT) Specimen (Source) Anatomical Location Collection Method / Collectio n Time Received Time / Laterality Volume Narrative [facility] - 12/07/2021 11:06 PM EDT This exam is auto-finalizing. It's purpo se is for storage only. Lovely Vicente MD IMG FILM LIBRARY ORDERABLES Performing Organization Address City/State/ZIP Code Phon e Number [facility] [place], [place] Scan Doc: ECG (12/07/2021) Narrative This result has an attachment that is no t available. 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 Advance Directives and Living 03/28/2013 3:24 PM Will Latest Code Status on File Code Status Date Activated Date Inactivated Comments Attempt Cardiopulmonary Resuscitation - 12/08/2021 4:31 PM 022 1:12 PM Inpatient Code Status decision made by: Patient Full Code 08/06/2017 4:59 PM 08/16/2017 2:25 PM Does patient have capacity to make decision: Yes Full Code 07/27/2017 4:00 AM 07/27/2017 5:26 PM Does patient have capacity to make decision: Yes Content of discussion: d/w pt Full Code 07/20/2017 1:45 AM 07/20/2017 5:16 PM Does patient have capacity to make decision: Yes Full Code 07/07/2017 6:25 PM 07/14/2017 4:44 PM Does patient have capacity to make decision: Yes Care Teams Puzzle Assembler Relationship Specialty Start Date End Date Lovely Vicente MD PCP - General 04/16/[address] [place] [address] (Ujmg)
--- OUTSIDE RECORDS SUMMARY | 2022-02-06 13:29 | XMS_ITS | Encounter Summary ---
:1945 Author Organization [facility] [place] [address] Care Team Providers Name Role Phone Lovely Vicente MD Primary Care Provider Encounter Details Date Type Department Care Team Description 12/24/2021 Telephone Public Health at [facility] [place] [phone] Social History Tobacco Use Types Packs/Day Years Used Date Former Smoker Cigarettes 3 5 Quit: 07/26/18 69 Smokeless Tobacco: Never Used Alcohol Use Standard Drinks/Week Comments No 0 (1 standard drink = 0.6 oz pure alcoho l) Sex Assigned at Date Recorded Not on file documented as of this encounter Miscellaneous Notes Telephone Encounter - Dayami Buckner - 12/24/2021 9:53 AM EDT 12/24 LVM needs covid test on 12/29 prior to surgery on 12/31. documented in this encounter Plan of Treatment Upcoming Encounters Date Type Specialty Care Team Description 02/19/2022 Laboratory Appointment Lab 02/19/2022 Office Visit Cardiology Liz Poole PA [facility] Cardiology Dept [place], [place] [address] (Wo rk) 03/12/2022 Office Visit Cardiology Vitaliy Nobles MD [facility] CARDIOLOGY [place], [place] [address] (Wo rk) documented as of this encounter Visit Diagnoses Not on filedocumented in this encounter Care Teams Liquid Chlorine Operator Relationship Specialty Start Date End Date Lovely Vicente MD PCP - General 04/16/[address] [place] [address] documented as of this encounter
--- OUTSIDE RECORDS SUMMARY | 2022-02-06 13:29 | XMS_ITS | Encounter Summary ---
:1945 Author Organization [facility] Address [address] [place] [address] Care Team Providers Name Role Phone Lovely Vicente MD Primary Care Provider Encounter Details Date Type Department Care Team Description 08/11/2019 Lab Requisition [facility] Unknown, Provider, Pathology & Laboratory [facility] [address] [facility] [place] [address] Social History Tobacco Use Types Packs/Day Years Used Date Never Assessed Sex Assigned at Date Recorded Not on file documented as of this encounter Plan of Treatment Not on filedocumented as of this encounter Procedures Procedure Name Priority Date/Time Associated Comments Diagnosis GIARDIA AND Routine 08/11/2019 14:35 Results for this CRYPTOSPORIDIUM ANTIGENS EST pro cedure are in the results section. documented in this encounter Results GIARDIA AND CRYPTOSPORIDIUM ANTIGENS (08/11/2019 14:35 EST) Giardia and Cryptosporidium Cryptosporidium [facility] Cryptosporidium Antigen Neg and Antigen Neg and CENTER Giardia Antigen Neg Giardia Antigen Neg LABORATORY SERVICES Specimen Feces - Specimen from rectum (specimen) Performing Organization Address City/State/ZIP Code Phon e Number [facility] [address] [place] [address] SERVICES documented in this encounter Visit Diagnoses Not on filedocumented in this encounter Care Teams Filling Hand Relationship Specialty Start Date End Date Lovely Vicente MD PCP - General 07/13/14 documented as of this encounter
--- OUTSIDE RECORDS SUMMARY | 2022-02-06 13:29 | XMS_ITS | Encounter Summary ---
:1945 Author Organization [facility] Address [address] [place] [address] Care Team Providers Name Role Phone Unavailable Primary Care Provider Unavailable Encounter Details Date Type Department Care Team Description 03/05/2014 Hospital Encounter [facility] Unknown, Provider, [facility] 0 [facility] [phone] [place] [address] (Work) [phone] Social History Tobacco Use Types Packs/Day Years Used Date Never Assessed Sex Assigned at Date Recorded Not on file documented as of this encounter Discharge Disposition Disposition Code Departure Means Destination Home or Self [facility] documented in this encounter Plan of Treatment Not on filedocumented as of this encounter Visit Diagnoses Not on filedocumented in this encounter
--- OUTSIDE RECORDS SUMMARY | 2022-02-06 13:29 | XMS_ITS | Clinical Summary ---
:1945 Author Organization [facility] Address [address] [place] [id number] Care Team Providers Name Role Phone Lovely Vicente MD Primary Care Provider Encounters Date Type Specialty Care Team Description 01/28/2022 Lab Requisition Clinical Laboratory Outr Resulting Lab , Provider from Last 3 Months Social History Tobacco Use Types Packs/Day Years Used Date Never Assessed Sex Assigned at Date Recorded Not on file Plan of Treatment Health Maintenance Due Date Last Done Comments Fall Risk Screening 2011 Procedures Procedure Name Priority Date/Time Associated Diagnosis Comme nts COVID-19 TEST [facility] Today 01/27/2022 14:30 LAB PCR EDT COVID-19 TESTING Routine 01/27/2022 14:30 Results for this EDT procedure are i n the results section. from Last 3 Months Results COVID-19 TEST [facility] LAB PCR (01/27/2022 14:30 EDT) Specimen Swab Performing Organization Address City/State/ZIP Code Phon e Number [facility] [address] [place] [address] SERVICES COVID-19 TESTING (01/27/2022 14:30 EDT) COVID-19 rt-PCR Negative Negative [facility] Result Comment: CENTER LABORATORY This test has not been FDA c leared or approved. This test has been authorized by FDA under an EUA for use by authorized laboratories. This test has been authorized only for detection of nucleic acid fro SERVICES m 2019-nCoV, not for any oth er viruses or pathogens. This test is only authorized for the duration of the declaration that circumstances exist justifying the authorization of emergency use of in vitro d iagnostic tests for detectio n and/or diagnosis of 2019-nCoV under section 564(b)(1) of Act, 21 U.S.C ?? 360bbb-3(b) (1), unless the authorization is terminated or revoked sooner. Negative results do not prec lude 2019-nCoV infection and should not be used as the sole basis for treatment or other patient management decisions. Negative results must be combined with clinical observa tions, patient history, and epidemiological informatio n. Testing was performed using the meliton SARS-CoV-2 assay ([employer] on the Meliton 6800 System Performing Lab Meliton [address] [facility] Lab [facility] SERVICES Specimen Swab Performing Organization Address City/State/ZIP Code Phon e Number [facility] [address] [place] [address] SERVICES from Last 3 Months Care Teams Green Hide Inspector Relationship Specialty Start Date End Date Lovely Vicente MD PCP - General 07/13/14
--- OUTSIDE RECORDS SUMMARY | 2022-02-06 13:29 | XMS_ITS | Encounter Summary ---
:1945 [place] [address] Care Team Providers Name Role Phone Lovely Vicente MD Primary Care Provider Encounter Details Date Type Department Care Team Description 12/30/2021 Notes Only [facility] [place] [address] Social History Tobacco Use Types Packs/Day Years Used Date Former Smoker Cigarettes 3 5 Quit: 07/26/18 69 Smokeless Tobacco: Never Used Alcohol Use Standard Drinks/Week Comments No 0 (1 standard drink = 0.6 oz pure alcoho l) Sex Assigned at Date Recorded Not on file documented as of this encounter Progress Notes Rebeka Deluca RN - 12/30/2021 2:50 PM EDT Cardiac rehab referral received on this patient from Heart Failure team. DX: HFrEF. Referral placed to [facility] documented in this encounter Plan of Treatment Upcoming Encounters Date Type Specialty Care Team Description 02/19/2022 Laboratory Appointment Lab 02/19/2022 Office Visit Cardiology Liz Poole PA [facility] Cardiology Dept [place], [place] [address] (Wo rk) 03/12/2022 Office Visit Cardiology Vitaliy Nobles MD [facility] ER CARDIOLOGY [place], [place] [address] (Wo rk) documented as of this encounter Visit Diagnoses Not on filedocumented in this encounter Care Teams Radio Performer Relationship Specialty Start Date End Date Lovely Vicente MD PCP - General 04/16/[address] [place] [address] documented as of this encounter
--- OUTSIDE RECORDS SUMMARY | 2022-02-06 13:29 | XMS_ITS | Encounter Summary ---
:1945 Author Organization [facility] Address [address] [place] [address] Care Team Providers Name Role Phone Lovely Vicente MD Primary Care Provider Encounter Details Date Type Department Care Team Description 01/01/2020 Lab Requisition [facility] Outr Resulting Lab, Pathology & Laboratory Provider [facility] [address] [place] [address] Social History Tobacco Use Types Packs/Day Years Used Date Never Assessed Sex Assigned at Date Recorded Not on file documented as of this encounter Plan of Treatment Not on filedocumented as of this encounter Procedures Procedure Name Priority Date/Time Associated Comments Diagnosis PSA TOTAL, Routine 01/01/2020 11:07 Results for this DIAGNOSTIC EDT procedure are i n the results section. documented in this encounter Results PSA TOTAL, DIAGNOSTIC (01/01/2020 11:07 EDT) Pathologist Sig nature PSA 2.1 0.0 - 6.5 ng/mL [facility] TORY SERVICES Specimen Blood - Venous blood (substance) Narrative [facility] - 01/02/2020 10:40 EDT NOTE: Serum PSA concentration should not be in terpreted as absolute evidence for the presence or absence of malignant disease. Assayed on Siemens ADVIA Centaur XPT usi ng chemiluminescent technology.??Values obtained by using different assay methods cannot be used interchangeably. Performing Organization Address City/State/ZIP Code Phon e Number [facility] [address] [place] [address] SERVICES documented in this encounter Visit Diagnoses Not on filedocumented in this encounter Care Teams Active Directory Systems Administrator Relationship Specialty Start Date End Date Lovely Vicente MD PCP - General 07/13/14 documented as of this encounter
--- OUTSIDE RECORDS SUMMARY | 2022-02-06 13:29 | XMS_ITS | Encounter Summary ---
:1945 Author Organization Address [address] [place] [address] Care Team Providers Name Role Phone Lovely Vicente MD Primary Care Provider Encounter Details Date Type Department Care Team Description 01/17/2021 Lab Requisition [facility] Outr Resulting Lab, Pathology & Laboratory Provider [facility] [address] [place] [address] Social History Tobacco Use Types Packs/Day Years Used Date Never Assessed Sex Assigned at Date Recorded Not on file documented as of this encounter Plan of Treatment Not on filedocumented as of this encounter Procedures Procedure Name Priority Date/Time Associated Comments Diagnosis PSA TOTAL, Routine 01/17/2021 7:38 EDT Results for this DIAGNOSTIC procedure are i n the results section. documented in this encounter Results PSA TOTAL, DIAGNOSTIC (01/17/2021 7:38 EDT) Pathologist Sig nature PSA 2.9 0.0 - 6.5 ng/mL [facility] Specimen Blood - Venous blood (substance) Narrative [facility] - 01/17/2021 17:46 EDT NOTE: Serum PSA concentration should not be in terpreted as absolute evidence for the presence or absence of malignant disease. Assayed on Siemens ADVIA Centaur XPT usi ng chemiluminescent technology.??Values obtained by using different assay methods cannot be used interchangeably. Performing Organization Address City/State/ZIP Code Phon e Number [facility] [address] [place] [address] SERVICES documented in this encounter Visit Diagnoses Not on filedocumented in this encounter Care Teams Receiving And Processing Supervisor Relationship Specialty Start Date End Date Lovely Vicente MD PCP - General 07/13/14 documented as of this encounter
--- OUTSIDE RECORDS SUMMARY | 2022-02-06 13:29 | XMS_ITS | Encounter Summary ---
:1945 [place] [address] Care Team Providers Name Role Phone Lovely Vicente MD Primary Care Provider Encounter Details Date Type Department Care Team Description 12/25/2021 Office Visit Cardiology at [facility] Liz Poole, Chronic systolic heart [facility] [place] [address] Cardiology Dept [phone] [place], [place] [address] Social History Tobacco Use Types Packs/Day Years Used Date Former Smoker Cigarettes 3 5 Quit: 07/26/18 69 Smokeless Tobacco: Never Used Alcohol Use Standard Drinks/Week Comments No 0 (1 standard drink = 0.6 oz pure alcoho l) Sex Assigned at Date Recorded Not on file documented as of this encounter Last Filed Vital Signs Vital Sign Reading Time Taken Comments Blood Pressure 108/55 12/25/2021 9:24 AM EDT Pulse 68 12/25/2021 9:24 AM EDT Temperature - - Respiratory Rate - - Oxygen Saturation 100% 12/25/2021 9:24 AM EDT Inhaled Oxygen Concentration - - Weight 88.3 kg (194 lb 9.6 12/25/2021 9:24 AM oz) EDT Height 172.7 cm (5' 8) 12/25/2021 9:24 AM patient repo rted EDT Body Mass Index 29.59 12/25/2021 9:24 AM EDT documented in this encounter Patient Instructions Patient InstructionsiLz Poole PA - 12/25/2021 9:49 AM EDT Decrease torsemide to 1 tablet daily (20 mg) Weigh yourself daily, if you gain 3 lbs overnight or 5 lbs total within a week, please call as we may adjust the diuretic dose Decrease losartan to 50 mg daily documented in this encounter Progress Notes Liz Poole PA - 12/25/2021 9:30 AM EDT Images from the original note were not included. CARDIOMYOPATHY/HEART FAILURE SERVICE OFFICE VISIT NOTE: ID and CC: Don Fatima is a 76 y.o. male presenting for f/u regarding ASCVD, ischemic cardiomyopathy. Post Hospital. ?? HPI: Index presentation: Mr. Fatima is a 72 year old male w/ a h/o MARIA VICTORIA (using CPAP), DM2, COPD, HTN, HLD, GERD, and hyperthyroid who presented on 07/05/2017 with late presenting STEMI. Admitted to the cardiology service for STEMI/transmural infarction with Q-waves in his anterior wall. Echocardiogram showed EF 30%. Cardiac cath showed severe diffuse disease. Post-cath he required an IABP. He was stabilized and diuresed. 07/06/2017 he was taken to the OR for a 3 vessel CABG (THOMPSON->LAD, Seq SVG->OM1->D1). POD # 2 he was noted to have atrial fibrillation and started on amiodarone and he converted to NSR. He was started on Coumadin for anticoagulation. Discharge weight: 200 lb. Last visit: 04/15/21 - no changes made, had felt well. Interim events: As per DC Summary - Admitted to [facility] on 12/08/21, transferred from [facility], respiratory distress with hypoxia 86% on RA. Troponin elevated, ProBNP 5419. CXR showing pulmonary edema. Presentation consistentwith ADHF and NSTEMI type 1 versus 2 in setting of ADHF. He was loaded with aspirin and clopidogrel,started on heparin infusion, and continued on beta-chadwick therapy. Transferred to for further management of NSTEMI??and??ADHF. Symptomatic improvement before arrival and??with normal saturations off oxygen. TTE showed reduction of LVEF to 35% inferoseptal, apical and posterior WMAs. Troponin trend: 0.89- 0.92- 1.13. On 12/09 AM experienced acute hypoxia and dyspnea with evaluation consistent with acute pulmonary edema.??Aggressive diuresis pursued. Underwent R/LHC 12/10/21 that showed elevated filling pressures with PCW 27 and occluded SVGs with patent THOMPSON-LAD. PCI to ostial LCX successful. Recommended outpatient staged PCI to RPDA. Recommend continuation of DAPT (ASA 81mg daily + Plavix 75mg daily) with Eliquis, stopping aspirin after 30 days. Recommend cardiac rehab participation following RPDA intervention. Continue atorvastatin at increased to 40mg nightly- monitor for ADRs. LDL 36, TSH WNL, A1c 6.2%. GDMT initiated for HFrEF included: metoprolol succinate, losartan (ACEi caused cough; optimize??GDMT (Entresto, Jardiance, spironolactone) post R/LHC. Weight was 86.4 Kg upon discharge home. His Coumadin was changed to Eliquis. He is no longer on Norvasc. He will take torsemide 40 [address] PO daily in place of Lasix. [place] is new for him and he will have a BMP checked on 12/15 and prn Today: had been noticing that he had been desaturating although he was not necessarily noticing any change in condition. Denied chest pain or shortness of breath prior to presentation. He is quite activenormally. Since hospital stay, is quite fatigued. Still with mild shortness of breath. No CP, palpitations, dizziness, lightheadedness, pre-syncope or syncope. Good UO to current dose of torsemide. No LE edema or abdominal distention. No orthopnea. Good blood sugar control now that he is home. Had felt very frustrated with insulin management while admitted. Staged PCI planned for December 31. Patient Active Problem List ?? Diagnosis ??? ASHD (arteriosclerotic heart disease) ? NSTEMI 3VCAD Ischemic Cardiomyopathy Elevated LVEDP ? Cardiomyopathy, ischemic ? LVEF=29% ??? Hypertension, accelerated, with systolic CHF, 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 ? Elevated HTN, poorly responsive to NTG Nipride initiated ??? STEMI (ST elevation myocardial infarction) ??? Ischemic foot ??? Dependence on continuous positive airway pressure ventilation ??? Gastroesophageal reflux disease ??? Hearing impaired ??? Hyperlipidemia ??? Hypomagnesemia ??? Peripheral neuropathy ??? Critical lower limb ischemia ??? BPH (benign prostatic hyperplasia) ??? Atypical nevus of abdominal wall ??? Urinary retention ??? MARIA VICTORIA (obstructive sleep apnea) on CPAP ??? Goiter ??? Seborrheic psoriasis- scalp and ingtergluteal area ??? Skin lesion of chest wall ??? Melanoma ? Your Medications Accurate as of December 25, 2021 10:00 AM. If you have any questions, ask your nurse or doctor. Continued medications with new dosing Dose Details levothyroxine 175 mcg Tab Commonly known as: SYNTHROID Take 1 tablet by mouth daily. 1 tablet daily 6 days per week, and 2 tablets 1 day per week. What changed: additional instructions 175 mcg Quantity: 102 tablet Refills: 3 torsemide 20 mg Tab Commonly known as: Demadex Take 1 tablet by mouth daily. What changed: how much to take Changed by: STEPHANIE Pratt 20 mg Quantity: 30 tablet Refills: 11 Continued medications, unchanged Dose Details Accu-Chek Elif Plus test strp Strp 2-3 times daily Generic drug: blood sugar diagnostic strips Quantity: 100 each Refills: 1 acetaminophen 650 mg Tbsr Commonly known as: TYLENOL Take 2 tablets by mouth as needed. 2 tablet Refills: 0 * apixaban 5 mg Tab Commonly known as: Eliquis Take 1 tablet by mouth 2 times daily. 5 mg Quantity: 60 tablet Refills: 3 * apixaban 5 mg Tab Commonly known as: Eliquis Take 1 tablet by mouth 2 times daily. 5 mg Quantity: 60 tablet Refills: 3 ascorbic acid (Vitamin C) 500 mg Tab Commonly known as: Vitamin C Take 500 mg by mouth daily. 500 mg Refills: 0 aspirin 81 mg Cap 81 mg every 24 hours. 81 mg Refills: 0 atorvastatin 40 mg Tab Commonly known as: Lipitor Take 10 mg by mouth daily. 5 days weekly. 10 mg Refills: 0 BD Ultra-Fine Mini Pen Needle 31 gauge x 3/16 Ndle 1 each by Other route 4 times daily. Generic drug: insulin needles (disposable) 1 each Refills: 0 clobetasoL 0.05 % Soln Commonly known as: TEMOVATE APPLY TOPICALLY DAILY NEEDED FOR RASH Refills: 0 clopidogreL 75 mg Tab Commonly known as: Plavix Take 1 tablet by mouth daily. 75 mg Quantity: 90 tablet Refills: 3 empagliflozin 10 mg Tab Commonly known as: Jardiance Take 1 tablet by mouth daily. 10 mg Quantity: 30 tablet Refills: 3 ferrous sulfate 325 mg (65 mg iron) Tab Take 325 mg by mouth daily (with breakfast). Tablet 4 days a week. 325 mg Refills: 0 ibuprofen 600 mg Tab Commonly known as: Advil as needed. Refills: 0 insulin lispro 100 unit/mL Inpn Commonly known as: HumaLOG Inject 25 Units subcutaneously 3 times daily (before meals). 25 Units Refills: 0 Lantus Solostar U-100 Insulin 100 unit/mL (3 mL) pen 35 Units nightly. Generic drug: insulin glargine 35 Units Refills: 0 losartan 100 mg Tab Commonly known as: COZAAR Take 50 mg by mouth daily. 50 mg Refills: 0 Magnesium Oxide 500 mg Cap Take 500 mg by mouth daily. 500 mg Refills: 0 metFORMIN 850 mg Tab Commonly known as: Glucophage Take 1 tablet by mouth 2 times daily (with meals). 850 mg Quantity: 60 tablet Refills: 12 * metoprolol succinate XL 25 mg Tablet sr Commonly known as: Toprol-XL Take 25 mg by mouth daily. 0.5 tablet of 50 mg 25 mg Refills: 0 * metoprolol succinate XL 50 mg Tablet sr Commonly known as: Toprol-XL Take 25 mg by mouth daily. 0.5 tablet of 50 mg tablet 25 mg Refills: 0 nitroGLYcerin 0.4 mg Subl Commonly known as: Nitrostat Place 1 tablet under the tongue every 5 minutes as needed for Chest pain. 0.4 mg Quantity: 90 tablet Refills: 12 pantoprazole EC 40 mg Tbec Commonly known as: Protonix Take 1 tablet by mouth daily. 40 mg Quantity: 90 tablet Refills: 3 spironolactone 25 mg Tab Commonly known as: Aldactone Take 1 tablet by mouth daily. 25 mg Quantity: 90 tablet Refills: 3 TURMERIC ORAL Take 500 mg by mouth 2 times daily. 500 mg Refills: 0 * This list has 4 medication(s) that are the same as other medications prescribed for you. Read thedirections carefully, and ask your doctor or other care provider to review them with you. Allergies: Review of patient's allergies indicates no known allergies. ?? Heart Failure Management: Yes/No No?/Discontinued/Why Beta chadwick Yes Metoprolol succinate 25 mg daily KIRSTIN/ARB Yes Losartan 100 mg daily Spironolactone No Spironolactone 25 mg daily AFIB? Post-op Anticoagulated Yes Eliquis Device No EF now 35%, reassess after PCI and optimizing GDMT Patient Vitals for the past 24 hrs: Pulse BP SpO2 12/25/21 0924 68 108/55 100 % Physical Exam: ?? Lab data: Recent Labs 12/25/21 0746 NA 134* K 4.9 CL 95* CO2 28 BUN 62* CREATININE 1.81* GLUCOSE 272* ProBNP Date Value Ref Range Status 12/25/2021 1,380 (H) <=124 pg/mL Final 04/16/2021 523 (H) <=124 pg/mL Final 07/28/2019 647 (H) <=125 pg/mL Final Lipid Panel Lab Results Component Value Date CHLPL 105 12/09/2021 HDL 42 12/09/2021 CHOLHDL 2.5 12/09/2021 TRIG 133 12/09/2021 LDLCHOL 36 12/09/2021 Cardiac studies: R/LHC 12/10/21 Hemodynamics: ?Right Heart Pressures ?Resting: ?Syst Diast ?EDP ?a ?v ?m ?RA ?13 ?12 ?10 ?RV 50 ?17 ?PA 63 ?28 ?38 ?PCW ?27 ?40 ?27 ?Hemodynamic Profile: ?Prof ile 1 ?CO ?5.00 ?CI ?2.48 ?TSR ?1,168 ?SVR ?1,008 ?TPR ?608 ?PVR ?176 ?Technique ?Estimated Brittanie ?Left Heart Pressures ?Resting: ?Syst Diast ?EDP ?a ?v ?m ?Ao 106 ?52 ?73 ?LV 106 ?30 ? Conclusions: ?* Significant stenosis of the left main ?* Three vessel coronary artery disease (LAD, LCX and RCA) ?* Patent left internal mammary artery graft to the LAD ?* Obstructive disease of the saphenous vein graft to the Diagonal 1/OM1 ?* Moderate pulmonary hypertension ?* Elevated pulmonary capillary wedge pressure ?* Elevated left ventricular end diastolic pressure ?* Successful stent insertion of the ostial LCX lesion ?* See Dual Antiplatelet (DAPT) Recommendations above ? TTE from [facility] 12/08/21 ?? 07/28/2019 Echocardiogram: SUMMARY: 1. The left ventricle is mildly dilated. Left ventricular wall thickness is normal. Global left ventricular systolic function is mildly reduced. Visually estimated lvef is 40-45%. There are left ventricular segmental wall motion abnormalities present, as shown in the diagram below. 2. The right ventricle is normal in size. Right ventricular global systolic function is low normal. 3. There is mild (1+/4+) mitral regurgitation present. 07/07/2019 - 07/21/2019 [employer] The patient had a minimum heart rate of 21 bpm and a maximum heart rate of 174 bpm The predominant underlying rhythm was sinus rhythm with intermittent bundle branch block There were 4 episodes of ventricular tachycardia with the longest lasting 5 beats there were 12 episodes of supraventricular tachycardia with the longest lasting 14 beats There were 2 episodes of type II second-degree AV block with the longest lasting 10 seconds There were rare isolated supraventricular ectopic beats There were occasional isolated ventricular ectopic beats There were no episodes of atrial fibrillation or pauses greater than 3 seconds Assessment: Mr. Fatima appears well compensated today and without symptoms of heart failure. 1. ASCVD On BB, statin, ARB Aspirin 81, Plavix 75 mg daily (stop aspirin 30 days after PCI on 12/31) 2. Ischemic cardiomyopathy Echocardiogram shows EF 35% Metoprolol succinate 25 mg daily Losartan 100 mg daily - reduce dose to 50 mg (Inc Cr, lower BP) Spironolactone 25 mg daily Jardiance 10 mg daily Repeat TTE 3 months after adjusting GDMT Consider Entresto at follow up and post PCI ?? 3. Systolic heart failure EF 35 % ACC/AHA stage C, NYHA FC II-IIIa Euvolemic on exam, ProBNP downtrending Reduce torsemide to 20 mg daily (Inc Cr) ?? 4. HTN BP: (108)/(55) BB, ARB, MRA ?? 5. Hx of hyperkalemia 4.9 today 6. Post-op atrial fibrillation [id number] (CHF, HTN, DM, vascular disease, thromboembolism) Eliquis 7. PAD 08/06/2017: Right 1st, 2nd, 3rd toe amputation 08/11/2017: Left??femoral arterial access, RLE??angiogram, Balloon angioplasty of R PT 10/25/2017: right popliteal-pedal bypass at [facility] 8. Hypothyrodism S/p thyroidectomy for goiter Levothyroxine ?? Plan: 1 month follow up with labs Liz Poole PA-C 12/25/2021 documented in this encounter Plan of Treatment Upcoming Encounters Date Type Specialty Care Team Description 02/19/2022 Laboratory Appointment Lab 02/19/2022 Office Visit Cardiology Liz Poole PA [facility] Cardiology Dept [place] [id number] (Wo rk) 03/12/2022 Office Visit Cardiology Vitaliy Nobles MD [facility] [address] CARDIOLOGY [place], [place] [address] ([facility]) Scheduled Orders Name Type Priority Associated Diagnoses Order S chedule Basic Metabolic Panel Lab STAT Chronic systolic he art Expected: 12/31/2021, (non-fasting) failure Expires: 12/26 documented as of this encounter Results (ABNORMAL) pro-Brain Natriuretic Peptide (12/25/2021 7:46 AM EDT) athologist Signature ProBNP 1,380 (H) <=124 [facility] pg/mL [facility] Specimen Anatomical Collection Method Collection Time Receive d Time (Source) Location / / Volume Laterality Blood 12/25/2021 7:46 AM 8:01 EDT AM EDT Resulting Agency Comment Spec In Lab Zulma Plunkett MD CHEMISTRY ORDERABLES Performing Organization Address City/State/[place] [address] (ABNORMAL) Basic Metabolic Panel (non-fasting) (12/25/2021 7:46 AM EDT) athologist Signature Glucose Lvl 272 (H) 65 - 199 [facility] mg/dL [facility] Comment: Diabetes: >=200 mg/dL plus symp toms BUN 62 (H) 10 - 20 mg/dL [facility] Creatinine 1.81 (H) 0.80 - 1.50 mg/dL [facility] Sodium 134 (L) 135 - 145 mmol/L [facility] Potassium 4.9 3.5 - 5.0 mmol/L [facility] Comment: Please note: ??Patients with [...] Anion Gap 11 5 - 15 mmol/L [facility] Calcium 9.4 8.5 - 10.5 mg/dL [facility] Estimated GFR 36 (L) >=60 mL/min/1.73 [...] / Volume Laterality Blood 12/25/2021 7:46 AM 8:01 EDT AM EDT Resulting Agency Comment Spec In Lab Zulma Plunkett MD CHEMISTRY ORDERABLES Performing Organization Address City/State/[place] [address] documented in this encounter Visit Diagnoses Diagnosis Chronic systolic heart failure documented in this encounter Care Teams Barrel Tester Relationship Specialty Start Date End Date Lovely Vicente MD PCP - General 04/16/[address] [place] [address] documented as of this encounter
--- OUTSIDE RECORDS SUMMARY | 2022-02-06 13:29 | XMS_ITS | Encounter Summary ---
:1945 Author Organization [facility] Address [address] [place] [address] Care Team Providers Name Role Phone Lovely Vicente MD Primary Care Provider Encounter Details Date Type Department Care Team Description 01/28/2022 Lab Requisition [facility] Outr Resulting Lab, Pathology & Laboratory Provider [facility] [address] [place] [address] Social History Tobacco Use Types Packs/Day Years Used Date Never Assessed Sex Assigned at Date Recorded Not on file documented as of this encounter Plan of Treatment Not on filedocumented as of this encounter Procedures Procedure Name Priority Date/Time Associated Diagnosis Comme nts COVID-19 TEST [facility] Today 01/27/2022 14:30 LAB PCR EDT COVID-19 TESTING Routine 01/27/2022 14:30 Results for this EDT procedure are i n the results section. documented in this encounter Results COVID-19 TEST [facility] LAB PCR (01/27/2022 14:30 EDT) Specimen Swab Performing Organization Address City/State/ZIP Code Phon e Number [facility] [address] [place] [address] SERVICES COVID-19 TESTING (01/27/2022 14:30 EDT) COVID-19 rt-PCR Negative Negative [facility] Result Comment: CENTER [facility]ORY This test has not been FDA c leared or approved. This test has been authorized by FDA under an EUA for use by authorized laboratories. This test has been authorized only for detection of nucleic acid fro SERVICES m 2018-nCoV, not for any oth er viruses or [...] was performed using the meliton SARS-CoV-2 assay ([employer] on the Meliton 6800 System Performing Lab [address] [address] [facility] Lab [facility] SERVICES Specimen Swab Performing Organization Address City/State/ZIP Code Phon e Number [facility] [address] [place] [id number] SERVICES documented in this encounter Visit Diagnoses Not on filedocumented in this encounter Care Teams Teletype Mechanic Relationship Specialty Start Date End Date Lovely Vicente MD PCP - General 07/13/14 documented as of this encounter
--- OUTSIDE RECORDS SUMMARY | 2022-02-06 13:29 | XMS_ITS | Encounter Summary ---
:1945 Author Organization [facility] Address [address] [place] [address] Care Team Providers Name Role Phone Unknown, Provider Primary Care Provider Encounter Details Date Type Department Care Team Description 07/11/2014 Results Only [facility] Shruthi Horowitz MD Laboratory Services - [address] [place] [address] [place] [address] 0 [place] [address] [phone] Social History Tobacco Use Types Packs/Day Years Used Date Never Assessed Sex Assigned at Date Recorded Not on file documented as of this encounter Plan of Treatment Not on filedocumented as of this encounter Procedures Procedure Name Priority Date/Time Associated Diagnosis Comme [facility] SURGICAL PATHOLOGY Routine 07/11/2014 8:55 EST Re sults for this procedure are i n the results section. documented in this encounter Results SURGICAL PATHOLOGY (07/11/2014 8:55 EST) Pathology Report: SURGICAL PATHOLOGY REPORT [facility] Reports generated via electronic interface contain sorin ginal data; LABORATORY however they are lacking the format of the original re port. SERVICES Caution should be taken when reading/interpreting unfo rmatted reports. Name: ? DON HOANG ? Accession #: ? [id number] ? : ? 1945 (Age: 69) ??M ? Collect Date: ? 07/11/2014 ? Location: ? [facility] ? Receive Date: ? 07/12/20 14 ? Provider: HELENE HOROWITZ MD Copy to: TASH SOLORIO MD ? Final Pathologic Diagnosis: PROSTATE, TRANSURETHRAL CURETTAGE: - ??Prostate with nodular hy perplasia and chronic and focal acute inflammation. Document reviewed and electronically signed by: KERMIT RAUSCH MD Report ??Date: 07/14/2014 16:24 By the signature above, the attending physician certif ies that he/she has personally conducted a gross and/or microscopic examin ation of the described specimens and rendered or confirmed the above diagnosi s. Specimen(s) Received: Prostate tissue Clinical History: Retention; BPH; Ocasio Gross Description: ? Received in formalin labelled with proper patient identification (initials S, L) and prostate tissue are multiple cordova-blair, rubbery, and cauterized soft tissue fragments (23.8 g, 7.0 x 6.5 x 3.0 cm in aggreg ate). Communications Systems Engineer sections are submitted in 1- 10 (approximately 40% of the specimen is submitted). Viry Nunez 07/12/2014 11:21 AM End of Report Specimen Performing Organization Address City/State/ZIP Code Phon e Number [facility] [address] [place] [address] SERVICES documented in this encounter Visit Diagnoses Not on filedocumented in this encounter Care Teams Handbag Designer Relationship Specialty Start Date End Date Unknown, Provider, PCP - General 03/07/14 07/12/14 documented as of this encounter
--- OUTSIDE RECORDS SUMMARY | 2022-02-06 13:29 | XMS_ITS | Encounter Summary ---
:1945 Author Organization [facility] Address [facility] [place] [address] Care Team Providers Name Role Phone Lovely Vicente MD Primary Care Provider Reason for Visit Auth/Cert Specialty Diagnoses / Procedures Referred By Contact Refer red To Contact Diagnoses ASCVD (arteriosclerotic cardiovascular disease) [I25.10] Vitaliy Nobles MD [facility] Procedures PRO PERC TRLUML CORONARY STENT W/ANGIO ONE ART/BRANCH CARDIAC CATHETERIZATION STENT PLACEMENT-SINGLE MAJOR CORONARY ARTERY OR BRANCH [facility] [place] [address] Referral ID Status Reason Start Date Expiration Date Visits Requ ested Visits Authorized [id number] 1 1 Encounter Details Date Type Department Care Team Description 01/30/2022 Surgery Glass Bender Asa Coulter MD CARDIAC CATHETERIZATION [facility] [place] [address] [place] [address] [phone] (Wo rk) Social History Tobacco Use Types Packs/Day Years Used Date Former Smoker Cigarettes 3 5 Quit: 07/26/18 68 Smokeless Tobacco: Never Used Alcohol Use Standard Drinks/Week Comments No 0 (1 standard drink = 0.6 oz pure alcoho l) Sex Assigned at Date Recorded Not on file documented as of this encounter Last Filed Vital Signs Vital Sign Reading Time Taken Comments Blood Pressure 154/78 01/30/2022 8:55 AM EDT Pulse 63 01/30/2022 8:55 AM EDT Temperature 36.5 ??C (97.7 ??F) 01/30/2022 7:37 AM EDT Respiratory Rate 16 01/30/2022 7:37 AM EDT Oxygen Saturation 99% 01/30/2022 8:55 AM EDT Inhaled Oxygen Concentration - - [...] and Clopidogrel. Please follow up with your shuttle driver in the next 4-6 weeks. We have made a referral to cardiac rehab. Please see the attached instructions regarding care to your right wrist access site. AttachmentsThe following attachments cannot be sent through Care Everywhere. Coronary Angiogram: Post-op (Romansh)documented in this encounter Medications at Time of [...] Murray RN - 01/30/2022 4:54 PM EDT [facility] Short Stay Unit Discharge Note All relevant [...] recent PCI presenting for staged PCI to [facility]. The pt states he has been ok. [...] recent PCI presenting for staged PCI to [facility]. The indications, expected benefits, and potential risks [...] SSU team Don has history of prior CO and CABG. I had referred him to cardiac rehab at [facility] last month per HF team. He was waiting until this intervention before starting the program. Reviewed managing angina /use of sl nitroglycerin. Given parameters for home exercise. 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 We discussed short walks several times per day. Will send [facility] his discharge summary from this admission. The patient should be contacted by the Program within 1- 2 weeks from discharge. Brief Op Note - Vitaliy Nobles MD - 01/30/2022 10:19 AM EDT Images from the original note were not included. [facility] [place] [address] [place] [address] CORONARY ANGIOGRAM AND PERCUTANEOUS CORONARY INTERVENTION REPORT Patient: Don Mccollum Kushal : 1945 MR number: [id number] Date of Service: 01/30/2022 Compressor Operator: Vitaliy Nobles MD Fellow: KEYON Elizabeth INDICATION: Don Fatima??is a 76 y.o.??male??with h/o??CAD [...] a long 2.0 x 26 mm HARDEEP [place] TUCKER stent and positioned it at the [...] using a 2.0 x 26 mm HARDEEP [place] TUCKER stent. This completes the revascularization ofall [...] 02/19/2022 Office Visit Cardiology Liz Poole PA [facility] Cardiology Dept [place], [place] [address] (Wo lissa) 03/12/2022 Office Visit Cardiology Vitaliy Nobles MD [facility] CARDIOLOGY [place], [place] [address] (Mikayla alcaraz) Scheduled Orders Name Type Priority Associated Diagnoses [...] (ABNORMAL) Differential, Automated (01/30/2022 2:12 PM EDT) P athologist Signature Neutrophils % 71.8 % [facility] Neutr Abs (ANC) 3.96 1.70 - [facility] 6.10 [facility] x10(3)/[facility] LABORATORY Lymphocytes % 16.3 % [facility] Lymphocytes Abs 0.9 0.[address] - [address] [facility] x10(3)/[facility] LABORATORY Monocytes % 10.0 % [facility] Monocyte Abs 0.6 0.3 - 0.9 [facility] x10(3)/[facility] LABORATORY Eosinophils % 0.5 % [facility] Eosinophils Abs 0.0 0.0 - 0.4 [facility] x10(3)/[facility] LABORATORY Basophils % 0.5 % [facility] Basophils Abs 0.0 0.0 - [address].1 [facility] x10(3)/[facility] LABORATORY Immature Gran % 0.90 % [facility] Comment: Immature granulocytes(IG's)percentage an d absolute count will include metamyelocytes, myelocytes, and promyelo cytes. Blood smears from CBCs yielding IG's will be scanned manually for concor danhaley. If this scan disagrees with the automated IG or if promyelocytes are not ed, a manual differential will be performed. Melisa Gran Abs 0.05 (H) 0.00 - 0.04 x10(3)/[facility] LABORATORY Specimen Anatomical Collection Method Collection Time Receive d Time (Source) Location / / Volume Laterality Blood 01/30/2022 2:12 PM 2 2:37 EDT PM EDT Resulting Agency Comment Spec In Lab Eddi Elizabeth Jr., MD HEMATOLOGY ORDERABLES Performing Organization Address City/State/Z[place] [address] (ABNORMAL) Hemogram (01/30/2022 2:12 PM EDT) Analysis Performed At Patho logist Time Signature WBC 5.5 4.0 - 9.5 [facility] x10(3)/[facility] LABORATORY RBC 4.30 (L) 4.58 - [facility]54 [facility] x10(6)/[facility] LABORATORY Hemoglobin 12.7 (L) 13.7 - [facility] 16.5 g/dL [facility]OR[facility]ORY Hematocrit 39.4 (L) 40.5 - [place] [facility] 48.5 % [facility] LABORATORY MCV 91.6 82.9 - [facility] 93.1 [facility] LABORATORY MCH 29.5 27.5 - [place] 32.1 pg [facility] MCHC 32.2 32.0 - [facility] 35.7 g/dL [facility] Platelets 172 145 - 357 [facility] x10(3)/[facility] LABORATORY RDWSD 54.5 (H) 36.0 - [place] [facility] 45.0 [facility] LABORATORY RDWCV 16.4 (H) 11.4 - [facility] 13.8 % [facility] LABORATORY MPV 9.2 7.6 - 12.9 [facility] LABORATORY nRBC % Auto 0.0 % [facility] nRBC Abs Auto 0.000 0.000 - [facility] 0.000 [facility] x10(3)/[facility] LABORATORY Specimen Anatomical Collection Method Collection Time Receive d Time (Source) Location / / Volume Laterality Blood 01/30/2022 2:12 PM 2 2:37 EDT PM EDT Resulting Agency Comment Spec In Lab Eddi Elizabeth Jr., MD HEMATOLOGY ORDERABLES Performing Organization Address City/State/[place] [address] (ABNORMAL) Basic Metabolic Panel (non-fasting) (01/30/2022 2:12 PM EDT) P athologist Signature Glucose Lvl 163 65 - 199 [facility] mg/dL [facility] Comment: Diabetes: >=200 mg/dL plus symp toms BUN 30 (H) 10 - 20 mg/dL [facility] Creatinine 1.47 0.80 - 1.50 mg/dL [facility] LABOR[facility]ORY Sodium 140 135 - 145 mmol/L [facility] Potassium 4.2 3.5 - 5.0 mmol/L [facility] Comment: Please note: ??Patients with WBC >100,00 0 may have falsely elevated Potassium levels. ??For accurate Potassium quantif ication in these patients send serum separator tube (gold top) for subsequent determinations. ??Contact the Clinical Chemistry Laboratory if there are any qu estions. Chloride 101 98 - 107 mmol/L [facility] CO2 28 22 - 31 mmol/L [facility] Anion Gap 11 5 - 15 mmol/L [facility] Calcium 9.2 8.5 - 10.5 mg/dL [facility] Estimated GFR 49 (L) >=60 mL/min/1.73 m?? [facility] Comment: This patient's estimated GFR [...] Nobles MD CHEMISTRY ORDERABLES Performing Organization Address City/[facility]/ZIP [place] [address] POCT Glucose (01/30/2022 1:41 PM EDT) athologist Signature POC Glucose 148 65 - 199 [facility] mg/dL [facility] Comment: Supplemental ranges: <140 mg/dL before meals <180 mg/dL all other times of the day Specimen Anatomical Collection Method Collection Time Receive d Time (Source) Location / / Volume Laterality Blood 01/30/2022 1:41 PM 2 1:41 EDT PM EDT Vitaliy Nobles MD POINT OF CARE TEST ORDERABLE S Performing Organization Address City/State/[place] [address] POCT Glucose (01/30/2022 10:48 AM EDT) athologist Signature POC Glucose 193 65 - 199 [facility] mg/dL [facility] Comment: Supplemental ranges: <140 mg/dL before meals <180 mg/dL all other times of the day Specimen Anatomical Collection Method Collection Time Receive d Time (Source) Location / / Volume Laterality Blood 01/30/2022 10:48 01/30/2022 AM EDT 10:48 AM EDT Vitaliy Nobles MD POINT OF CARE TEST ORDERABLE S Performing Organization Address City/State/[place] [address] EKG 12 Lead (01/30/2022 10:33 AM EDT) Component Value Ref Range Test Analysis Performed Pathologis t Method Time At Signature Ventricular rate 64 BPM MUSE SYSTEM Atrial Rate 64 BPM MUSE SYSTEM P-R Interval 162 ms MUSE SYSTEM QRS Duration 94 ms MUSE SYSTEM Q-T Interval 422 ms MUSE SYSTEM QTC Calculated 435 ms MUSE SYSTEM (Bezet) Calculated P [place] 41 degrees MUSE SYSTEM Calculated R [place] -27 degrees MUSE SYSTEM Calculated T [place] 104 degrees MUSE SYSTEM INTERPRETATION Normal sinus rhythm MUSE SYSTEM Anterolateral infarct (cited on or before 09-DEC-2021) Abnormal ECG When compared with ECG of 10-DEC-2021 11:17, No significant change was found Confirmed by Gary Perez ([id number]) on 01/30/2022 5:57:5 2 PM Specimen Anatomical [...] SYSTEM - 01/30/2022 2:09 PM ED T ?[facility] ? Cardiac Cathete rization/Intervention Report ? Patient Name: Kushal, Don E. ? Procedure Date: 01/30/2022 ? A #: [id number] ? Primary Physician: Nobles, Vitaliy P ? Case #: [id number] ? File Name: [id number] ? Catheterization Order Number: [id number] ? [facility] ? Final Report [place], [place] ? Patient Name: ? Don E. Stewa rt ? ID#: ?[id number] ? : ?1945 ? Procedure Date: ? January 30, 2022 ? Case #: ? [id number] ? Room: ? 1 ? Case Physician: [...] a recent coronary ?intervention procedure. The pat iebryant had remote coronary artery bypass ?surgery. He [...] procedure was Urgent. The indication for ?the tree tapping laborer visit is stable kn own CAD. [...] cted. ?2. ?? Saphenous vein graft to t he OM1/Diagonal 1 ? There was a saphenous ve in graft with sequential anastomoses to the ? first obtuse marginal br anch (OM1) of the LCX and the first diagonal ? branch (Diagonal 1) of t he LAD. ? This vessel was not inje cted. ? Intravascular Imaging/Physiology: ?Intravascular Ultrasound was pe rformed in the entire vessel RPDA using a ?6 Fr IR 1.5 guiding catheter an d a 3.5 Fr [place] [facility] [address] ??20 Mhz ?using Manual pullback. ??Imagin [...] insertion was accomplished through a 6 Fr. Ikari Right ? 2.0 guide. ??Th e lesion was predilated with a 2.00mm NC EUPHORA ? 15 MM balloon w ith a maximum inflation pressure of 26 ? atmospheres. ?? A premounted 2.00 x 26 mm Erie [place] (TUCKER) ? was deployed wi th a [...] Wedelivered along 2.0 x 26 mm HARDEEP [place] ? TUCKER stent and p ositioned it [...] dose administered prior to arrival in the tree tapping laborer. ?Recommended anti-platelet/anti- thrombotic regimen: ?Continue aspirin [...] may require ?modification of this regimen. C onsult [facility] Interventional [facility] for ?questions. ?The 1 year bleeding risk as nusrat culated by the PRECISE DAPT score is High ?risk. ?High Bleeding Risk - Anticoagul ation and DAPT: ?- ??Assess ischemic and bleedin g risks using validated risk predictors ?(e.g. CHADS2-VASC, HAS-BLED, DE ECISE DAPT, DAPT Score) ?- ??Keep anticoagulant [...] using a 2.0 x 26 mm HARDEEP [place] TCUKER stent. ?This completes the revasculariz ation of [...] advised cardiac rehab. ?The attending physician was linda gutiérrez for the entire procedure. ?Dr. Vitaliy Nobles M.D. performed th e coronary angiography, left heart ?catheterization, bypass graft stud y, IVUS # coronary, stent ?insertion-coronary and peripheral intravascular ultrasound. ? Vitaliy P Nobles, M.D. ? Electronically Signed by: Vitaliy P Nobles, M .D. ? Report Finalized: 01/30/2022 ??14:02 ? Procedure Note Vitaliy Nobles MD - 01/30/2022 [facility] Cardiac Catheterization/Intervention Re port Patient Name: Don Fatima Procedure Date: 01/30/2022 A #: [id number] Primary Physician: Vitaliy Nobles Case #: [id number] File Name: [id number] Catheterization Order Number: [id number] [facility] Final Report [place], [place] Patient Name: Don Fatima ID#: [...] designated a s ASA Class III. The [facility] clinical frailty scale is 5: Mildly Frail. [...] e was Urgent. The indication for the tree tapping laborer visit is stable known CAD. Chest [...] 1.5 guiding catheter and a 3.5 Fr [place] [facility] [address] 20 Mhz using Manual pullback. Imaging [...] A premounted 2.00 x 26 mm Hardeep [place] (TUCKER) was deployed with a maximum inflation [...] along 2. 0 x 26 mm HARDEEP [place] TUCKER stent and positioned it at the [...] administered prior t o arrival in the tree tapping laborer. Recommended anti-platelet/anti-thrombot ic regimen: Continue aspirin [...] require modification of this regimen. Consult [facility] Interventional Cardiology for questions. The 1 year [...] using a 2.0 x 26 mm HARDEEP [place] TUCKER stent. This completes the revascularization of [...] POC Glucose 212 (H) 65 - 199 [facility] mg/dL [facility] Comment: Supplemental ranges: <140 mg/dL before meals <180 mg/dL all other times of the day Specimen Anatomical Collection Method Collection Time Receive d Time (Source) Location / / Volume Laterality Blood 01/30/2022 9:04 AM 2 9:04 EDT AM EDT Vitaliy Nobles MD POINT OF CARE TEST ORDERABLE S Performing Organization Address City/[facility]/ZIP [place] [address] (ABNORMAL) POCT Glucose (01/30/2022 8:10 AM EDT) athologist Signature POC Glucose 224 (H) 65 - 199 [facility] mg/dL [facility] Comment: Supplemental ranges: <140 mg/dL before meals <180 mg/dL all other times of the day Specimen Anatomical Collection Method Collection Time Receive d Time (Source) Location / / Volume Laterality Blood 01/30/2022 8:10 AM 2 8:10 EDT AM EDT Vitaliy Nobles MD POINT OF CARE TEST ORDERABLE S Performing Organization Address City/State/Z[place] [address] documented in this encounter Visit Diagnoses Diagnosis ASCVD (arteriosclerotic cardiovascular d isease) Unspecified cardiovascular disease 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 ASHD (arteriosclerotic heart disease) Coronary atherosclerosis of unspecified type of vessel, [place] or graft ASCVD (arteriosclerotic cardiovascular d isease) Unspecified cardiovascular disease documented in this encounter Admitting Diagnoses Diagnosis CAD (coronary artery disease) Coronary atherosclerosis of unspecified type of vessel, [place] or graft documented in this encounter Administered Medications Inactive Administered Medications - up to 3 most recent administrations Medication Order MAR Action Action Date Dose Rate Site aspirin EC tablet Given 01/30/2022 8:39 AM EDT 81 mg ONCE PRN, Starting on Wed01/30/22 at 0839, Until Wed01/30/22 at 1025, Cath (Intra-Procedure), Routine clopidogreL (Plavix) 300 mg tablet 1 dose, Starting on Wed01/30/22 at 1039, Until Wed at 1045, MADDISON FARMER: dagmarinet override clopidogreL (Plavix) tablet 600 mg Given 01/30/2022 10:45 AM EDT 600 mg 600 mg, Oral, ONCE, 1 dose, On Wed01/30/22 at 1100, Routine fentaNYL (pf) (50 mcg/mL) multi-dose Given 01/30/2022 8:37 AM ED T 25 mcg injection ONCE PRN, Starting on Wed01/30/22 at 0837, Until Wed01/30/22 at 1025, Cath (Intra-Procedure), Routine heparin (porcine) (1,000 units/mL) Given 01/30/2022 9:23 AM EDT 1,000 Units injection ONCE PRN, Starting on Wed01/30/22 at 0855, Until Wed01/30/22 at 1025, Cath (Intra-Procedure), Routine Given 01/30/2022 8:55 AM EDT 8,000 Units heparin (porcine) (1,000 units/mL) Given 01/30/2022 10:23 AM EDT 1,000 Units injection ONCE PRN, Starting on Wed01/30/22 at 1023, Until Wed01/30/22 at 1229, Cath (Intra-Procedure), Routine iodixanoL (Visipaque) (320 mg/mL) injection Given 02/2022 10:13 AM EDT 124 mLs solution ONCE PRN, Starting on Wed01/30/22 at 1013, Until Wed01/30/22 at 1025, Cath (Intra-Procedure), Routine midazolam (pf) (Versed) (1 mg/mL) multi-dose Given 01/30/2022 8: 38 AM EDT 1 mg injection ONCE PRN, Starting on Wed01/30/22 at 0838, Until Wed01/30/22 at 1025, Cath (Intra-Procedure), Routine niCARdipine (Cardene) (100 mcg/mL) dilution Given 02/2022 10:11 AM EDT 100 mcg (SLIMER) ONCE PRN, Starting on Wed01/30/22 at 0927, Until Wed01/30/22 at 1229, Intra-Operative (Intra-Procedure), Routine Given 01/30/2022 10:08 AM EDT 100 mcg Given 01/30/2022 10:05 AM EDT 100 mcg sodium chloride 0.9% infusion New Bag 01/30/2022 10:13 AM EDT 250 mLs CONTINUOUS PRN, Starting on Wed01/30/22 at 1013, Until Wed01/30/22 at 1025, Cath (Intra-Procedure) sodium chloride 0.9% infusion Continued Bag 01/30/2022 10:15 AM 50 mL/hr 50 mL/hr 50 mL/hr, Intravenous, EDT CONTINUOUS, Starting on Wed01/30/22 at 1045, Until Wed01/30/22 at 1244, Recovery (Recovery-Hospital Unit) documented in this encounter Active and Recently Administered Medications Times are shown in EDT. Scheduled Medication Order 01/28/2022 01/29/2022 01/30/2022 clopidogreL (Plavix) tablet 600 mg (COMPLETED) 1045 (Given - Provider: Maddison Farmer RN)1100 (Due) 600 mg, Oral, ONCE, 1 dose, On Wed01/30/22 at 1100, Routine magnesium sulfate 1 g in dextrose 5% 100 mL infusion 0845 (Due) 1 g, Intravenous, ONCE, 1 dose, On Wed at 0845, Administer over 60 Minutes Continuous Medication Order 01/28/2022 01/29/2022 01/30/2022 sodium chloride 0.9% infusion 10 15 (Continued Bag - Provider: Maddison Farmer RN) 50 mL/hr, Intravenous, CONTINUOUS, Start ing on Wed01/30/22 at 1045, Until Wed01/30/22 at 1244, Recovery (Recovery-Hospital Unit) PRN Medication Order 01/28/2022 01/29/2022 01/30/2022 aspirin EC tablet (CANCELED) 083 9 (Given - Provider: Katerin Kay RN) ONCE PRN, Starting on Wed01/30/22 at 0839 , Until Wed01/30/22 at 1025, Cath (Intra- Procedure), Routine fentaNYL (pf) (50 mcg/mL) multi-dose injection (CANCELED) 0837 (Given - Provider: Jet Reina, VAMSI) ONCE PRN, Starting on Wed01/30/22 at 0837 , Until Wed01/30/22 at 1025, Cath (Intra- Procedure), Routine heparin (porcine) (1,000 units/mL) injection (CANCELED) 0855 (Given - Provider: Katerin Kay RN)0923 (Given - Provider: Katerin Kay RN) ONCE [...] Procedure), Routine niCARdipine (Cardene) (100 mcg/mL) dilution (SLIMER) (CANCELED ) 0927 (Given - Provider: Vitaliy [...] (Intra-Procedure) documented in this encounter Care Teams Incinerator Plant Supervisor Relationship Specialty Start Date End Date Lovely Vicente MD PCP - General 04/16/15 [facility] [address] [place] [address] documented as of this encounter
--- OUTSIDE RECORDS SUMMARY | 2022-02-06 13:29 | XMS_ITS | Encounter Summary ---
:1945 Author Organization [facility] Address [address] [place] [address] Care Team Providers Name Role Phone Lovely Vicente MD Primary Care Provider Encounter Details Date Type Department Care Team Description 04/04/2021 Lab Requisition [facility] Outr Resulting Lab, Pathology & Laboratory Provider [facility] [address] [place] [address] Social History Tobacco Use Types Packs/Day Years Used Date Never Assessed Sex Assigned at Date Recorded Not on file documented as of this encounter Plan of Treatment Not on filedocumented as of this encounter Procedures Procedure Name Priority Date/Time Associated Comments Diagnosis GIARDIA AND Routine 04/03/2021 12:15 Results for this CRYPTOSPORIDIUM ANTIGENS EDT pro cedure are in the results section. documented in this encounter Results GIARDIA AND CRYPTOSPORIDIUM ANTIGENS (04/03/2021 12:15 EDT) Giardia and Cryptosporidium Cryptosporidium [facility] Cryptosporidium Antigen Neg and Antigen Neg and CENTER Giardia Antigen Neg Giardia Antigen Neg LABORATORY SERVICES Specimen Feces - Specimen from rectum (specimen) Performing Organization Address City/State/ZIP Code Phon e Number [facility] [address] [place] [address] SERVICES documented in this encounter Visit Diagnoses Not on filedocumented in this encounter Care Teams Oil Spot Washer Relationship Specialty Start Date End Date Lovely Vicente MD PCP - General 07/13/14 documented as of this encounter
--- OUTSIDE RECORDS SUMMARY | 2022-02-06 13:30 | XMS_ITS | Encounter Summary ---
:1945 Author Organization [facility] [place] [address] Care Team Providers Name Role Phone Lovely Vicente MD Primary Care Provider Encounter Details Date Type Department Care Team Description 12/12/2021 Telephone Cardiology at [facility] Barbara [place]era, [place] [address] Social History Tobacco Use Types Packs/Day Years Used Date Former Smoker Cigarettes 3 5 Quit: 07/26/18 69 Smokeless Tobacco: Never Used Alcohol Use Standard Drinks/Week Comments No 0 (1 standard drink = 0.6 oz pure alcoho l) Sex Assigned at Date Recorded Not on file documented as of this encounter Miscellaneous Notes Telephone Encounter - Barbara Mera RN - 12/12/2021 11:36 AM EDT RTC to [facility] [place] regarding pharmacists questions as to whether the Torsemide can be dispensed as 2, 20 mg, tablets, as they have to order Torsemide 40 mg tablets. Pended prescription in refill request. Barbara Mera (Jodie), VAMSI, BSN [facility] documented in this encounter Plan of Treatment Upcoming Encounters Date Type Specialty Care Team Description 02/19/2022 Laboratory Appointment Lab 02/19/2022 Office Visit Cardiology Liz Poole PA [facility] Cardiology Dept [place], [place] [address] (Wo rk) 03/12/2022 Office Visit Cardiology Vitaliy Nobles MD [facility] CARDIOLOGY [place], [place] [address] (Wo rk) documented as of this encounter Visit Diagnoses Not on filedocumented in this encounter Care Teams Building Performance Specialist Relationship Specialty Start Date End Date Lovely Vicente MD PCP - General 04/16/[address] [place] [address] documented as of this encounter
--- OUTSIDE RECORDS SUMMARY | 2022-02-06 13:30 | XMS_ITS | Encounter Summary ---
:1945 Author Organization [facility] [address] Care Team Providers Name Role Phone Lovely Vicente MD Primary Care Provider Reason for Referral Consultation (Routine) - Closed Specialty Diagnoses / Referred By Contact Referred To Contact Procedures Cardiac Rehabilitation Diagnoses Acute HFrEF (heart failure with reduced ejection fraction) Janneth Padilla, Cardiac Rehab, [address] [place], [place] CARDIOLOGY DEPT. [id number] [place] [address] Referral ID Status Reason Start Date Expiration Date Visits V isits Requested Authorized [id number] Closed Consult, 12/12/2021 12/12/2022 36 36 Test & Treat Reason for Visit Auth/Cert Specialty Diagnoses / Procedures Referred By Contact Refer red To Contact Diagnoses NSTEMI Procedures emerg ipi Referral ID Status Reason Start Date Expiration Date Visits Requ ested Visits Authorized [id number] 1 1 Encounter Details Date Type Department Care Team Description 12/08/2021 - Hospital Encounter Intermediate Cardiac Iker Cuevas MD [facility] [place] [address] Non-ST elevation myocardial infarction ( NSTEMI); 12/12/2021 Care Unit Ifeanyi Rene MD [facility] [place] [address] ST elevation myocardial infarction (STEM I), unspecified artery; [facility] Acute HFr EF (heart failure with reduced ejection fraction) [place] [address] Social History Tobacco Use Types Packs/Day Years Used Date Former Smoker Cigarettes 3 5 Quit: 07/26/18 68 Smokeless Tobacco: Never Used Alcohol Use Standard Drinks/Week Comments No 0 (1 standard drink = 0.6 oz pure alcoho l) Sex Assigned at Date Recorded Not on file documented as of this encounter Last Filed Vital Signs Vital Sign Reading Time Taken Comments Blood Pressure 113/61 12/12/2021 7:58 AM EDT Pulse 73 12/11/2021 4:28 PM EDT Temperature 36.4 ??C (97.5 ??F) 12/12/2021 7:58 AM EDT Respiratory Rate 16 12/12/2021 7:58 AM EDT Oxygen Saturation 94% 12/12/2021 7:58 AM EDT Inhaled Oxygen Concentration - - Weight 86.4 kg (190 lb 7.6 oz) 12/12/2021 6:31 AM EDT Height 172.7 cm (5' 8) 12/08/2021 3:39 PM EDT Body Mass Index 28.96 12/08/2021 3:39 PM EDT documented in this encounter Discharge Summaries Iker Cuevas MD - 12/09/2021 1:49 PM EDT Images from the original note were not included. Discharge Summary Patient Name: Don Fatima Patient Age: 76 y.o. Language: Malay Race: White Ethnicity: Not nor Admit date: 12/08/2021 Discharge date and time: 12/12/2021 7:58 AM Attending Physician: Iker Cuevas MD Discharge Physician: Dr. Cuevas Follow-up Recommendations for Providers: ?? Patient weighs 86.4 on 12/11/2021 ?? Home on Torsemide 40 mg PO daily and raiza 25 mg PO daily ?? No longer on norvasc ?? Awaiting PCI of RCA in the future ?? LVEDP was 30 at the time of cath, daily weights, I/Os ?? Check BMP Friday 12/15 and prn ?? Cardiac rehab as an out patient Inpatient Provider Contact Information: MD Migdalia Peter PA-C Kelly LaFlamme PA-C Cardiovascular Medicine [phone] Discharge Diagnoses (Hospital Problems) and Secondary Diagnoses (Chronic Problems): Active Hospital Problems Diagnosis ??? Admitted with CHF. CABG 2016. Found to have sequential vein graft down. OSMANI ok. PCI of LM/ostial Cx. Will stage RPDA for 2 weeks. EDP 30. DM. MARIA VICTORIA. ICM. Home Wednesday. ??? ASHD (arteriosclerotic heart disease) ??? Cardiomyopathy, ischemic ??? Non-ST elevation myocardial infarction (NSTEMI) ??? Acute HFrEF (heart failure with reduced ejection fraction) Resolved Hospital Problems No resolved problems to display. Active Non-Hospital Problems Diagnosis ??? 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 STEMI (ST elevation myocardial infarction) ??? On amiodarone therapy ??? S/P CABG x 3 ??? Atheroembolism of foot, right ??? Delayed surgical wound healing ??? Carpal tunnel syndrome ??? Hx of malignant melanoma ??? Hx of thyroid cancer ??? Leg cramps ??? Osteoarthrosis ??? Ischemic foot ??? Dependence on continuous positive airway pressure ventilation ??? Gastroesophageal reflux disease ??? Hearing impaired ??? Hyperlipidemia ??? Hypomagnesemia ??? Peripheral neuropathy ??? Critical lower limb ischemia ??? Postoperative retention of urine ??? BPH (benign prostatic hyperplasia) ??? Atypical nevus of abdominal wall ??? Urinary retention ??? MARIA VICTORIA (obstructive sleep apnea) on CPAP ??? Goiter ??? Seborrheic psoriasis- scalp and ingtergluteal area ??? Skin lesion of chest wall ??? Melanoma Operations/Major Procedures: R/LHC 12/10/21 Hemodynamics: Right Heart Pressures Resting: Syst Diast EDP a v m RA 13 12 10 RV 50 17 PA 63 28 38 PCW 27 40 27 Hemodynamic Profile: Profile 1 CO 5.00 CI 2.48 TSR 1,168 SVR 1,008 TPR 608 PVR 176 Technique Estimated Brittanie Left Heart Pressures Resting: Syst Diast EDP a v m Ao 106 52 73 LV 106 30 Oximetry: Location %Sat Location %Sat Right Pulmonary 55.0 Pulmonary Capillary 97.0 Artery Wedge Coronary Angiography: Dominance: Right Left Main There was a 50% diffuse stenosis of the distal segment of the left main artery. The left main was large. Left Anterior Descending There was severe diffuse (>=75% stenosis) disease of the proximal segment of the left anterior descending artery (LAD). The LAD was large. Distal flow was via a bypass graft. There was a 99% diffuse stenosis of the ostial segment of the first diagonal branch (Diagonal 1) of the LAD. The Diagonal 1 was moderate in size. Left Circumflex There was mild diffuse (<=25% stenosis) disease of the entire vessel segment of the left circumflex artery (LCX). The ostial segment of the LCX had a calcified single discrete 90% stenosis. There also was a 60% single discrete stenosis of the mid segment of the LCX. There was moderate diffuse (<=50% stenosis) disease of the mid segment of the first obtuse marginal branch (OM1) of the LCX. The OM1 was moderate in size. Right Coronary Artery There was mild diffuse (<=25% stenosis) disease of the entire vessel segment of the right coronary artery (RCA). There was a 95% diffuse stenosis of the entire vessel segment of the right posterior descending branch (RPDA) of the RCA. The RPDA was moderate in size. Bypass Grafts: There was a total of two bypass grafts evaluated during this procedure. 1. Left internal mammary artery graft to the LAD There was a left internal mammary artery graft with a single anastomosis to the left anterior descending artery (LAD). There was no evidence of obstruction in this graft. Distal flow was normal. 2. Saphenous vein graft to the Diagonal 1/OM1 There was a saphenous vein graft with sequential anastomoses to the first diagonal branch (Diagonal 1) of the LAD and the first obtuse marginal branch (OM1) of the LCX. There was a single discrete total occlusion of the ostial portion of the segment of this graft between the origin of this graft and the Diagonal 1. The entire segment of this graft between the Diagonal 1 and the OM1 had mild diffuse (<=25% stenosis) disease. Intravascular Imaging/Physiology: Intravascular Ultrasound was performed in the ostial LCX using a 7 Fr EBU 3.75 guiding catheter and a 3.5 Fr [employer] [place] 20 Mhz using Manual pullback. Imaging was successful. Image quality was good. The ostial LCX showed moderate diffuse atherosclerotic plaque with scattered three quadrant calcification. Measurements were performed after pre-dilation. Post Intervention: The stent was well expanded and apposed. Intravascular Ultrasound was performed in the distal LM using a 7 Fr EBU 3.75 guiding catheter and a 3.5 Fr [employer] 20 Mhz using Manual pullback. Imaging was successful. Image quality was good. The distal LM showed moderate diffuse atherosclerotic plaque. Post Intervention: The stent was well expanded and apposed. Indication for Intervention: Coronary intervention was indicated for primary therapy for an acute myocardial infarction. The priority for the procedure was Urgent. The NCDR indication for the procedure was NSTE-ACS. LVEF within one week was 35%. Syntax Score was Intermediate. Right Heart catheterization was initiated for Acute on chronic systolic (congestive) heart failure (I50.23). Intervention Summary: Left Circumflex Artery Ostial 90% Stent insertion was performed on the 90% stenosis in the ostial segment of the LCX. This was a de fe lesion. According to the ACC/AHA classification system, this lesion was a type C high risk lesion. Primary prevention of restenosis was the indication for stent insertion. A guidewire was placed across this lesion. Vessel flow pre intervention was YULISSA 2. Lesion length was 24mm. This lesion was severely calcified. Stent insertion was accomplished through a 7 Fr. EBU 3.75 guide. The lesion was predilated with a 2.75mm NC EUPHORA 15 MM balloon with a maximum inflation pressure of 20 atmospheres. A premounted 4.00 x 24 mm Synergy XD (TUCKER) was deployed with a maximum inflation pressure of 24 atmospheres. Following stent deployment, the lesion was dilated using a 5.50mm NC EMERGE 15 MM balloon with a maximum inflation pressure of 20 atmospheres. The final outcome was defined as successful. A coronary arteriolar vasodilator was administered as part of the intervention on this lesion. There was no residual stenosis following this intervention. The final YULISSA flow was 3. PCI of the distal LM and ostial LCX 95% lesion. A successful PCI was performed on the 95% lesion in the ostial LCX and 50% distal LM. We used a 7 Fr EBU 3.75 guide. We administered heparin as the anticoagulant and loaded Prasugrel 60 mg as the antiplatelet agent. We used a RunThrough wire to cross the lesion into the LCX and used a BMW wire in the LAD. We dilated the lesion using a 2.75 x 15 mm NC balloon to 22 darshan. We performed IVUS which showed the entire LM had a 50% plaque burden and severe calcified disease in the LCX. We delivered a large 4.0 x 24 mm Synergy TUCKER stent in the proximal LCX lesion extending back into the LM ostium and deployed it at 14 darshan jailing the LAD wire. We then used the stent balloon to post-dilate the LCX part of the stent to 20 darshan pressure. We used an additional 5.5 x 15 mm NC balloon to 24 darshan to post-dilate the LM part of the vessel. Final IVUS showed well apposed stent and no dissections. Following intervention there was 0% residual stenosis. There were no site complications. Vascular Access: Vascular Access Management: Mechanical Compression of the left radial artery access site was performed. Manual Compression of the right median antecubital vein access site was performed. Mechanical Compression of the right radial artery access site was performed. Point of Care Testing: ABG: Arterial Blood gasses were performed using the I-Stat analyzer at 09:10: pH: 7.41, pCO2: 40.0, pO2: 63.0, sPO2: 92%, HCO3: 25 on FIO2: 4 L NC. I-Stat: I-Stat was performed using the I-Stat analyzer at 09:10: Na+: 143, K+: 3.7, iCa++: 1.07, Hct: 30%, Hb: 10.2. Dual Antiplatelet (DAPT) Recommendations: Drug eluting stent (TUCKER) inserted. P2Y12 Loading dose Prasugrel 60 mg PO given in lab. Recommended anti-platelet/anti-thrombotic regimen: Continue aspirin 81 mg daily for 7 days then stop. Restart aspirin 81 mg daily in 12 months and continue unless contraindicated. Continue clopidogrel 75 mg daily for 12 months then stop. Continue warfarin to INR of 2.0-2.5 for indefinitely. Custom Protocol: 2 weeks of triple therapy including aspirin, clopidogrel, and warfarin. Followed by cessation of aspirin and continuing clopidogrel and warfarin only for 12 months. Can restart aspirin after 12 months as well as stopping clopidogrel at that time. These recommendations are made at the time of the intervention. Patient and provider preferences or a changing clinical situation may require modification of this regimen. Consult [facility] Interventional Cardiology for questions. The 1 year bleeding risk as calculated by the PRECISE DAPT score is High risk. High Bleeding Risk - Anticoagulation and DAPT: - Assess ischemic and bleeding risks using validated risk predictors (e.g. CHADS2-VASC, HAS-BLED, PRECISE DAPT, DAPT Score) - Keep anticoagulant and antiplatelet therapy duration as short as possible - Consider a target INR of 2.0-2.5 if warfarin is used - Clopidogrel is the P2Y12 inhibitor of choice - Use low-dose (less than 100 mg daily) aspirin if aspirin is used - PPIs (pantoprazole preferred) should be used in patients with a history of gastrointestinal bleeding and are reasonable to use in patients with increased risk of gastrointestinal bleeding - (Rec elizabeth 2.1 08 Dec 2019) Conclusions: * Significant stenosis of the left main * Three vessel coronary artery disease (LAD, LCX and RCA) * Patent left internal mammary artery graft to the LAD * Obstructive disease of the saphenous vein graft to the Diagonal 1/OM1 * Moderate pulmonary hypertension * Elevated pulmonary capillary wedge pressure * Elevated left ventricular end diastolic pressure * Successful stent insertion of the ostial LCX lesion * See Dual Antiplatelet (DAPT) Recommendations above Other Studies: CXR 12/09/21 IMPRESSION * ??Increased bilateral multifocal airspace opacities, more prominent and confluent on the right, may reflect asymmetric edema or multifocal infection. * ??Unchanged pulmonary vascular congestion and cardiomegaly. ?? TTE from [facility] 12/08/21 ? Prior Cardiac Studies: TTE 07/28/2019 SUMMARY: 1. The left ventricle is mildly dilated. ??Left ventricular wall thickness is normal. ??Global left ventricular systolic function is mildly reduced. ??Visually estimated lvef is 40-45%. ??There are left ventricular segmental wall motion abnormalities present, as shown in the diagram below. 2. The right ventricle is normal in size. ??Right ventricular global systolic function is low normal. 3. There is mild (1+/4+) mitral regurgitation present. History of Presentation: Don Faitma is a 76 y.o. male with history of CAD status post three-vessel CABG (THOMPSON-LAD, sequential SVG-OM1-D1) 07/07/2017 following late STEMI, ischemic cardiomyopathy with LVEF 40-45%, paroxysmal atrial fibrillation on outpatient warfarin, IDDM2, CKD III, hypertension, dyslipidemia, COPD, MARIA VICTORIA,right metatarsal amputation 08/09/2017, and hypothyroidism prior thyroidectomy in 2012 who presented to [facility] with 1 week progressing breathlessness with patient reporting orthopnea and needing to sleep in a chair. Otherwise he reports he can walk extended distances and flat ground. 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 He has had a dry cough. He reports he is 5 pounds up and usually weighs 200-210 pounds. He denies chest discomfort. Current complaints are similar to before his prior heart attack. Last cardiology visit 03/2021 with Liz Poole PA-C. ?? At [facility], respiratory distress with hypoxia 86% on room air. EKG with sinus rhythm, anterior Q waves,ST elevation 1-[address] depressions I and aVL which are similar to prior tracings, troponins were elevated with high-sensitivity troponin I 8004 (UNL<60), and NT proBNP 5419. CXR showed pulmonary edema. He was loaded with clopidogrel 300 Mg x1 (12/07), ASA 324 Mg x1 (12/07), methylprednisolone IV, IVdiuretic with furosemide 40 mg IV x2, and nebulizers. He was transferred to for further management of NSTEMI and CHF exacerbation Hospital Course: # NSTEMI # ASCVD, s/p CABG 2016 # Acute hypoxic respiratory failure in setting of pulmonary edema # Acute on chronic HFrEF with further reduction of LVEF (40-45% 07/2019 ->35% 11/2021) # Ischemic cardiomyopathy Don Fatima??is a 76 y.o.??male??with h/o??CAD s/p 3vCABG (THOMPSON-LAD, sequential SVG-OM1-D1) 07/07/2017 following late STEMI, ischemic cardiomyopathy with LVEF 40-45%, paroxysmal atrial fibrillationon outpatient warfarin, IDDM2, CKD III, hypertension, dyslipidemia, COPD, MARIA VICTORIA, right metatarsal amputation 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 Ruled in for ACS with elevated troponin I 8000 (UNL >68) and EKG at his prior baseline with anterior Q waves and ST abnormalities in anterior lateral leads. ProBNP elevated (5419) and CXR with pulmonary edema. Presentation consistent with ADHF and NSTEMI type 1 versus 2 in setting of ADHF. He was loaded with aspirin and clopidogrel, started on heparin infusion, and continued on beta-chadwick therapy. Transferred to for further management of NSTEMI??and??ADHF. Symptomatic improvement before arrival and??with normal saturations off oxygen. TTE showed reduction of LVEF to 35% inferoseptal, apical and posterior WMAs. Troponin trend: 0.89- 0.92- 1.13. On 12/09 AM experienced acute hypoxia and dyspnea with evaluation consistent with acute pulmonary edema. Aggressive diuresis pursued. Underwent R/LHC 12/10/21 that showed elevated filling pressures withPCW 27 and occluded SVGs with patent THOMPSON-LAD. PCI to ostial LCX successful. Recommended outpatient staged PCI to RPDA. Recommend continuation of DAPT (ASA 81mg daily + Plavix 75mg daily) with Eliquis,stopping aspirin after 30 days. Recommend cardiac rehab participation following RPDA intervention. Continue atorvastatin at increased to 40mg nightly- monitor for ADRs. LDL 36, TSH WNL, A1c 6.2%. GDMT initiated for HFrEF included: metoprolol succinate, losartan (ACEi caused cough; optimize GDMT (Entresto, Jardiance, spironolactone) post R/LHC. Weight was 86.4 Kg upon discharge home. His coumadin was changed to Eliquis. He is no longer on norvasc. He will take torsemide 40 mg PO daily in place of lasix. [place] is new for him and he will have a BMP checked on 12/[address] Cuevas spoke with the patient's and told her that him drinking too much water and diet drinks did not cause his [place]. This is what his thought was the case. Patient to see PCP in a week, Dr. De Oliveira and Dr. Nobles in the future. Plans were made to have him work on his RCA in the future via Same Day procedure. ?? #Paroxysmal atrial fibrillation Currently in sinus rhythm. Pre-admission he was taking warfarin. Discussion with patient and and decision to transition to DOAC was made. Eliquis 5mg BID ratliff checked and found to be ~$24/mo; affordable per patient. Post [facility] he was started on Eliquis. He continued on metoprolol dosing. ?? #IDDM2 A1c 6.2%. Home Lantus 35mg nightly, Humalog 25mg with meals, and metformin. Metformin held on admission. DM team consulted for assistance with insulin management. Continued on Lantus nightly with MILI and SSI with dosing per DM team. Discharged on home regimen. ?? #CKD stage 3 Renal function monitored with diuresis. Nephrotoxic agents avoided. Discharge creatinine was 1.72 and K was 3.9. ?? #HTN BP trend 12 hours prior to discharge were BP: (114-121)/(60-67) . Continued on metoprolol, losartan,and torsemide replacing lasix. Monitor trends as an out patient. ?? #Hyperlipidemia Lipid panel: TC 105, HDL 42, TG 133, LDL 36. Continued on atorvastatin at increased to 40 mg nightly. ??Monitor for ADRs. ?? #COPD Presentation more consistent with ADHF no COPD exacerbation. No further IV methylprednisolone at this time. ?? #MARIA VICTORIA On CPAP at home but does not know settings. CPAP w/ auto titrate while admitted. ?? #Hypothyroidism status post thyroidectomy TSH WNL. Continued on levothyroxine. Functional and Cognitive Status: Alert and oriented x 3, ambulatory-independent Important Studies and Lab Data: Labs: Lab Results Component Value Date WBC 7.9 12/12/2021 HGB 12.1 (L) 12/12/2021 HCT 36.7 (L) 12/12/2021 PLATELET 231 12/12/2021 Recent Labs 12/12/21 0451 INR 1.3 Lab Results Component Value Date NA 143 12/12/2021 K 3.9 12/12/2021 CL 105 12/12/2021 CO2 21 (L) 12/12/2021 BUN 52 (H) 12/12/2021 CREATININE 1.72 (H) 12/12/2021 Recent Labs 12/09/21 0618 TSH 1.60 Recent Labs 12/09/21 0618 HA1C 7.4* Recent Labs 12/09/21 0618 12/08/21 2203 12/08/21 1802 TROPONINT 1.13* 0.92* 0.89* Lab Results Component Value Date CHLPL 105 12/09/2021 HDL 42 12/09/2021 CHOLHDL 2.5 12/09/2021 TRIG 133 12/09/2021 LDLCHOL 36 12/09/2021 Discharge Conditions/Prognosis: stable Discharge to: Home with family Updated Allergies/ADRs: Allergies Allergen Reactions ??? Lisinopril Other (See Comments) Cough Immunizations Given this Hospitalization: Immunization History Administered Date(s) Administered ??? Influenza PF, Split 03/29/2013 ??? Influenza Vaccine, Whole 06/14/2006 Discharge Medications: Your Medications New Medications Dose Details * apixaban 5 mg Tab Commonly known as: Eliquis Take 1 tablet by mouth 2 times daily. 5 mg Quantity: 60 tablet Refills: 3 * apixaban 5 mg Tab Commonly known as: Eliquis Take 1 tablet by mouth 2 times daily. 5 mg Quantity: 60 tablet Refills: 3 clopidogreL 75 mg Tab Commonly known as: Plavix Take 1 tablet by mouth daily. 75 mg Quantity: 90 tablet Refills: 3 empagliflozin 10 mg Tab Commonly known as: Jardiance Take 1 tablet by mouth daily. 10 mg Quantity: 30 tablet Refills: 3 nitroGLYcerin 0.4 mg Subl Commonly known as: [...] 25 mg Quantity: 90 tablet Refills: 3 torsemide 40 mg Tab Take 40 mg by mouth daily. 40 mg Quantity: 30 tablet Refills: 3 * This list has 2 medication(s) that are the same as other medications prescribed for you. Read thedirections carefully, and ask your doctor or other care provider to review them with you. Continued medications with new dosing Dose Details levothyroxine 175 mcg Tab Commonly known as: SYNTHROID Take 1 tablet by mouth daily. 1 tablet daily 6 days per week, and 2 tablets 1 day per week. What changed: additional instructions 175 mcg Quantity: 102 tablet Refills: 3 Continued medications, unchanged Dose Details Accu-Chek Elif Plus test strp Strp 2-3 times daily Generic drug: blood sugar diagnostic strips Quantity: 100 each Refills: 1 ascorbic acid (Vitamin C) 500 mg Tab [...] insulin needles (disposable) 1 each Refills: 0 ferrous sulfate 325 mg (65 mg iron) Tab Take 325 mg by mouth daily (with breakfast). Tablet 4 days a week. 325 mg Refills: 0 insulin lispro 100 unit/mL Inpn Commonly known as: HumaLOG Inject 25 Units subcutaneously 3 times daily (before meals). 25 Units Refills: 0 Lantus Solostar U-100 Insulin 100 unit/mL (3 mL) pen 35 Units nightly. Generic drug: insulin glargine 35 Units Refills: 0 losartan 100 mg Tab Commonly known as: COZAAR Take 100 mg by mouth daily. 100 mg Refills: 0 Magnesium Oxide 500 mg Cap Take 500 mg by mouth daily. 500 mg Refills: 0 metFORMIN 850 mg Tab Commonly known as: Glucophage Take 1 tablet by mouth 2 times daily (with meals). 850 mg Quantity: 60 tablet Refills: 12 metoprolol succinate XL 25 mg Tablet sr Commonly known as: Toprol-XL Take 50 mg by mouth daily. 50 mg Refills: 0 TURMERIC ORAL Take 500 mg by mouth 2 times daily. 500 mg Refills: 0 STOPPED Medications amLODIPine 5 mg Tab Commonly known as: Norvasc furosemide 20 mg Tab Commonly known as: Lasix warfarin 2.5 mg Tab Commonly known as: Coumadin Smoking Status at Discharge: Social History Tobacco Use Smoking Status Former Smoker ??? Packs/day: 3.00 ??? Years: 5.00 ??? Pack years: 15.00 ??? Types: Cigarettes ??? Quit date: 07/26/1967 ??? Years since quittin.4 Smokeless Tobacco Never Used Instructions Given to Patient at Discharge: Patient Instructions General Instructions Anti-coagulation follow up: Eliquis, ASA and Plavix at this time Call your doctor if: Chest pain, shortness of breath, pain or swelling in legs occurs. If you have non-emergent questions between now and the time of your follow up appointments: During 8am-5pm Wednesday through Wednesday call [phone] to speak with a nurse in the cardiology clinic All other times call [phone] and ask to speak to the business continuity director insulation installer. Return to work: One week Driving: No driving for 48 hours after catheterization. Follow up Appointments: PCP Lovely Vicente MD [phone] to see patient at the end of December for annual check up. Patient to see Dr. Lorenzana at 1120 am at December 19 for a post hospital check up. Motion Picture Film Examiner Dr. De Oliveira to see you in [facility]. Left a message for office to set a date and time. Please call [phone] Nobles to see the patient for a same day cath in 2-3 weeks from now. Office to call with a date and time. For questions please call [phone] Home oxygen therapy: N/A Arrangements for VNA/home care: none Future Appointments and Orders Future Orders Complete By Expires Basic Metabolic Panel (non-fasting) [LAB15 Custom] 12/19/2021 (Approximate) 12/12/2022 Process Instructions: INCLUDES: Calcium, BUN, Creat, GFR, Glucose, Lytes Scheduling Instructions: Comments: Questions: Referral to Cardiac Rehab [[id number] Custom] As directed Process Instructions: If no progress note charted, please enter Clinical details in comments. Scheduling Instructions: Questions: My question or request is: patient had a PCI and is getting PCI of RCA next in 2 weeks. Discharge References/Attachments None documented in this encounter Discharge Instructions Discharge InstructionsJanneth Padilla PA - 12/11/2021 4:30 PM EDT Anti-coagulation follow up: Eliquis, ASA and Plavix at this time Call your doctor if: Chest pain, shortness of breath, pain or swelling in legs occurs. If you have non-emergent questions between now and the time of your follow up appointments: During 8am-5pm Wednesday through Wednesday call [phone] to speak with a nurse in the cardiology clinic All other times call [phone] and ask to speak to the business continuity director insulation installer. Return to work: One week Driving: No driving for 48 hours after catheterization. Follow up Appointments: PCP Lovely Vicente MD [phone] to see patient at the end of December for annual check up. Patient to see Dr. Lorenzana at 1120 am at December 19 for a post hospital check up. Motion Picture Film Examiner Dr. De Oliveira to see you in [facility]. Left a message for office to set a date and time. Please call [phone] Nobles to see the patient for a same day cath in 2-3 weeks from now. Office to call with a date and time. For questions please call [phone] Home oxygen therapy: N/A Arrangements for VNA/home care: none Patient InstructionsLaJanneth cano PA - 12/10/2021 4:17 PM EDT documented in this encounter Medications at Time of Discharge Medication Sig Dispensed Refills Start Date End Date clopidogreL (Plavix) Take 1 tablet by mouth [...] mg Tablet 2 times daily (with meals). clobetasoL (TEMOVATE) APPLY TOPICALLY DAILY 0 02/2022 [...] subcutaneously 3 times daily (before meals). ACCU-CHEK ELIF PLUS 2-3 times daily 100 each 1 07/14/2017 TEST STRP Strip BD INSULIN PEN NEEDLE 1 each by Other route 0 UF MINI 31 gauge x 4 times daily. 10/08 Needle aspirin 81 mg Capsule 81 mg every 24 hours. 0 01/30/2022 acetaminophen Take 2 tablets by 0 11/02/2017 07/0 01/2022 (TYLENOL) 650 mg mouth as needed. Tablet Sustained Release metoprolol succinate Take 25 mg by mouth 0 202101/30/2022 XL (Toprol-XL) 50 mg daily. 0.5 tablet of Tablet Sustained 50 mg tablet Release 24 hr torsemide (Demadex) 20 Take 2 tablets by 60 tablet 3 202112/25/2021 mg TabletIndications: mouth daily. Chronic systolic heart failure apixaban (Eliquis) 5 Take 1 tablet by mouth 60 tablet 3 01/29/2022 mg Tablet 2 times daily. torsemide 40 mg Tablet Take 40 mg by mouth 30 tablet 3 11/2412/25/2021 daily. documented as of this encounter Progress Notes Janneth Padilla PA - 12/12/2021 7:36 AM EDT Images from the original note were not included. Inpatient Cardiology Progress Note Patient Name: Don Fatima Service: RAMP BOSS / PA Responsible Attending: Ifeanyi Truong MD Reason for continued hospitalization: ?? NSTEMI- s/p R/LHC- PCW 27, occluded SVGs s/p PCI to ostial LCX ?? ADHF and hypoxia- IV diuresis ?? Home likely Wednesday12/12/2021 ?? RCA to be worked on as an out patient ?? Medication titration Active Problems: Active Hospital Problems Diagnosis ??? Admitted with CHF. CABG 2017. Found to have sequential vein graft down. OSMANI ok. PCI of LM/ostial Cx. Will stage RPDA for 2 weeks. EDP 30. DM. MARIA VICTORIA. ICM. Home Wednesday. ??? ASHD (arteriosclerotic heart disease) ??? Cardiomyopathy, ischemic ??? Non-ST elevation myocardial infarction (NSTEMI) ??? Acute HFrEF (heart failure with reduced ejection fraction) Resolved Hospital Problems No resolved problems to display. Interval History: No acute events overnight. Feels less SOB. No chest pain. Underwent R/LHC noting elevated filling pressures and occluded SVGs, patent THOMPSON-LAD and RPDA 95% lesion. Underwent TUCKER to prox LCX with plans for staged procedure to RPDA as outpatient. He was given Lasix 80mg IV x1 in r&d lab technician. Tolerated procedure well. Home today at 11 am. Follow-up with Dr. De Oliveira and Dr. Nobles. to get him this morning. Review of Systems: Review of Systems Constitutional: Positive for fatigue and unexpected weight change. Negative for fever. Respiratory: Positive for cough and shortness of breath. Cardiovascular: Positive for leg swelling. Negative for chest pain and palpitations. Gastrointestinal: Negative for abdominal pain, nausea and vomiting. Genitourinary: Negative for difficulty urinating. Skin: Negative for rash. Neurological: Negative for dizziness, syncope, weakness, light-headedness and headaches. Psychiatric/Behavioral: Negative for confusion. Telemetry: HR: 60-80s, SR/ST with rare PVCs and 4 beat NSVT Meds: Scheduled Meds: ??? spironolactone 25 mg Oral Daily ??? empagliflozin 10 mg Oral Daily ??? torsemide 40 mg Oral Daily ??? insulin glargine (Lantus;Semglee) (100 unit/mL) subcutaneous injection 42 Units Subcutaneous Nightly ??? insulin lispro 0-35 Units Subcutaneous TID WC ??? apixaban 5 mg Oral BID ??? insulin lispro 1-6 Units Subcutaneous Q4H LUZ ??? clopidogreL 75 mg Oral Daily ??? polyethylene glycoL (MIRALAX) oral powder 17 g Oral Daily ??? aspirin 81 mg Oral Daily ??? atorvastatin 40 mg Oral QPM ??? levothyroxine 175 mcg Oral Daily ??? losartan 100 mg Oral Daily ??? metoprolol tartrate 12.5 mg Oral Q6H LUZ ??? sodium chloride 0.9 % (flush) 5 mL Intravenous BID ??? pantoprazole EC 40 mg Oral Daily Continuous Infusions: PRN Meds:ipratropium-albuteroL, senna-docusate, bisacodyL, sodium chloride 0.9 % (flush), lidocaine,nitroGLYcerin, glucose 40% oral geL OR dextrose 10% OR glucagon, acetaminophen Physical Exam: Vital Signs: Last value Range last 12 hrs Temperature Temp: 36.9 ??C (98.4 ??F) Temp: [36.3 ??C (97.3 ??F)-36.9 ??C (98.4 ??F)] Heart Rate Heart Rate: 73 Heart Rate: -- Blood Pressure BP: 121/67 BP: (114-121)/(60-67) Respiratory Rate Resp: 16 Resp: [16-18] SpO2 SpO2: 95 % SpO2: [92 %-98 %] Intake/Output Summary (Last 24 hours) at 12/12/2021 0736 Last data filed at 12/12/2021 0350 Gross per 24 hour Intake 625 ml Output 2625 ml Net -2000 ml Patient Vitals for the past 168 hrs: Weight 12/12/21 0631 86.4 kg (190 lb 7.6 oz) 12/11/21 0510 86.9 kg (191 lb 9.3 oz) 12/10/21 0432 88.7 kg (195 lb 8.8 oz) 12/09/21 0943 89.1 kg (196 lb 6.9 oz) 12/08/21 1539 91.1 kg (200 lb 13.4 oz) Physical Exam Vitals reviewed. Constitutional: General: He is not in acute distress. Appearance: He is obese. HENT: Head: Normocephalic and atraumatic. Mouth/Throat: Pharynx: Oropharynx is clear. Eyes: General: Right eye: No discharge. Left eye: No discharge. Conjunctiva/sclera: Conjunctivae normal. Neck: Vascular: JVD present. Cardiovascular: Rate and Rhythm: Normal rate and regular rhythm. Pulses: Normal pulses. Heart sounds: Normal heart sounds. Pulmonary: Effort: No respiratory distress. Breath sounds: Rales present. No wheezing. Comments: On 4L O2 via NC Abdominal: Palpations: Abdomen is soft. Musculoskeletal: Cervical back: Normal range of motion and neck supple. Right lower leg: No edema. Left lower leg: No edema. Comments: Right metatarsal amputation Skin: General: Skin is warm and dry. Comments: Right and left wrist access sites with TR bands in place Neurological: General: No focal deficit present. Mental Status: He is alert and oriented to person, place, and time. Psychiatric: Mood and Affect: Mood normal. Lab Comments: Recent Labs 12/12/21 0451 12/11/2142712/10/21424 WBC 7.9 8.8 9.4 HGB 12.1* 11.9* 11.1* HCT 36.7* 36.9* 34.0* PLATELET 231 211 183 Recent Labs 12/12/21450 INR 1.3 Recent Labs 12/12/21 0451 05/19/42712/10/21194512/10/211811 NA 143 142 -- 138 K 3.9 4.0 4.2 Not Perf CL 105 104 -- 100 CO2 21* 23 -- 22 BUN 52* 49* -- 50* CREATININE 1.72* 1.43 -- 1.39 Recent Labs 12/09/21617 AST 25 ALT 15 ALKPHOS 75 BILITOT 1.1 BILIDIR 0.2 Recent Labs 12/12/21 0451 12/11/218 12/10/21 18112/10/21424 CALCIUM 8.9 8.6 8.3* 8.0* MAGNESIUM 1.02 1.04 -- 0.95 Recent Labs 12/09/2161712/08/21220212/08/211801 TROPONINT 1.13* 0.92* 0.89* Pertinent Radiographic/Diagnostic Results: R/LHC 12/10/21 Hemodynamics: Right Heart Pressures Resting: Syst Diast EDP a v m RA 13 12 10 RV 50 17 PA 63 28 38 PCW 27 40 27 Hemodynamic Profile: Profile 1 CO 5.00 CI 2.48 TSR 1,168 SVR 1,008 TPR 608 PVR 176 Technique Estimated Brittanie Left Heart Pressures Resting: Syst Diast EDP a v m Ao 106 52 73 LV 106 30 Conclusions: * Significant stenosis of the left main * Three vessel coronary artery disease (LAD, LCX and RCA) * Patent left internal mammary artery graft to the LAD * Obstructive disease of the saphenous vein graft to the Diagonal 1/OM1 * Moderate pulmonary hypertension * Elevated pulmonary capillary wedge pressure * Elevated left ventricular end diastolic pressure * Successful stent insertion of the ostial LCX lesion * See Dual Antiplatelet (DAPT) Recommendations above CXR 12/09/21 IMPRESSION * Increased bilateral multifocal airspace opacities, more prominent and confluent on the right, may reflect asymmetric edema or multifocal infection. * Unchanged pulmonary vascular congestion and cardiomegaly. TTE from [facility] 12/08/21 Prior Cardiac Studies: TTE 07/28/2019 SUMMARY: 1. The left ventricle is mildly [...] There is mild (1+/4+) mitral regurgitation present. Assessment: Don Fatima is a 76 y.o. 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 Ruled in for ACS with elevated troponin I 8000 (UNL >68) and EKG at his prior baseline with anterior Q waves and ST abnormalities in anterior lateral leads. ProBNP elevated (5419) and CXR with pulmonary edema. Presentation consistent with ADHFand NSTEMI type 1 versus 2 in setting of ADHF. He was loaded with aspirin and clopidogrel, started on heparin infusion, and continued on beta-chadwick therapy. Transferred to for further management of NSTEMI and ADHF. Symptomatic improvement before arrival and with normal saturations off oxygen. On 12/09 AM experienced acute hypoxia and dyspnea with evaluation consistent with acute pulmonary edema. A ggressive diuresis pursued. Underwent R/LHC 12/10/21 that showed elevated filling pressures with PCW 27 and occluded SVGs with patent THOMPSON-LAD. PCI to ostial LCX successful. Recommended outpatient staged PCI to RPDA. Will need optimized GDMT for ICM. Plan: # NSTEMI # ASCVD, s/p CABG 2016 Troponin trend: 0.89- 0.92- 1.13 Continue heparin infusion Continue ASA 81mg daily. Loaded 324mg x1 (12/07). Stop ASA after 30 days of triple therapy Continue clopidogrel 75mg daily. Loaded 600mg x 1 (12/07) Continue metoprolol 12.5mg q6h Continue atorvastatin at increased to 40mg nightly. Monitor for ADRs. Telemetry monitoring, daily weights, I/O, routine labs LDL 36, TSH WNL, A1c 6.2% S/p R/LHC as noted above, TUCKER to ostial LCX Home today, will have RCA worked on later ?? # Acute hypoxic respiratory failure in setting of pulmonary edema # Acute on chronic HFrEF with further reduction of LVEF (40-45% 07/2019 ->35% 11/2021) # Ischemic cardiomyopathy Admit proBNP 523 TTE as above CXR with congestion and pulmonary edema RHC with PCW of 27 at 195 lbs Stopped NTG gtt Continue amlodipine, losartan (ACEi caused cough), metoprolol dosing Plan to optimize GDMT (Entresto, Jardiance, spironolactone) post R/LHC ?? #Paroxysmal atrial fibrillation Currently in sinus rhythm. INR 2.3, given Vit K 2.5mg on 12/09 Daily INR Holding warfarin which is followed by his PCP. Home dosing 5 Mg HAYS/T/W// and 7.5 mg /. [place] check DOAC, consider transition to DOAC if affordable Resume oral anticoagulation tonight - now on eliquis Continue metoprolol dosing ?? #IDDM2 Home Lantus 35mg nightly, Humalog 25mg with meals, and metformin Hold metformin DM team consult appreciated Continue Lantus nightly with MILI and SSI- dosing per DM team ?? #CKD stage 3 Monitor renal function with diuresis Avoid nephrotoxic agents ?? #HTN BP: (114-121)/(60-67) trend over last 12 hours Continue metoprolol, losartan, and amlodipine #Hyperlipidemia Lipid panel: TC 105, HDL 42, TG 133, LDL 36 Continue atorvastatin at increased to 40 mg nightly. Monitor for ADRs. #COPD Presentation more consistent with ADHF no COPD exacerbation. No further IV methylprednisolone at this time. #MARIA VICTORIA On CPAP at home but does not know settings. Will order CPAP w/ auto titrate. ?? #Hypothyroidism status post thyroidectomy TSH WNL Continue levothyroxine. ?? Routine: #Code status: FULL #DVT prophylaxis: heparin infusion #GI prophylaxis: PPI Discussed with MD Janneth Neville PA 12/12/2021 Pager [phone] Associated attestation - Ifeanyi Truong MD - 12/12/2021 7:56 AM EDT I have seen the patient and reviewed the fellow's above history and I agree with the details as written. The assessment and plan were formulated in discussion with me and I agree with them as documented. Derrick Galeas RN - 12/12/2021 5:39 AM EDT Shift EVALUATION NOTE: Shift SUMMARY: Pt AAOx4. VSS on RA, CPAP while sleeping. Pt denies CP or SOB. NSR/SB/ST on tele, see scanned documents. Rates 55-105. 7 beat SVT w/sustained AIVR, resolved on own. Asymptomatic, MD NADINE notified. See flowsheets for I&O. Call cabello within reach. Pt slept between care. PLAN MOVING FORWARD: D/c 12/12? Continue to monitor Discharge planning as appropriate Desirae Jett APRN - 12/11/2021 12:11 PM EDT Images from the original note were not included. Follow Up Diabetes Consult Patient Interview Play cribbage in room with . He reiterates that he feels his home diabetes regimen is working well for him and that his BG is 120-140 the majority of the time. FBG 198 this morning after increasing Lantus to 35 units last night. Post prandial BG of 342 after receiving a 1:5 ICR with breakfast. Objective Temp: [36.5 ??C (97.7 ??F)-36.8 ??C (98.2 ??F)] Heart Rate: [66-77] Resp: [16-18] BP: (116-138)/(40-82) SpO2: [92 %-98 %] Heart Rate from SpO2: -- Current Regimen from previous note 1. Lantus 35 units nightly 2. Lispro custom correction scale for BG>140, CF 20 3. Meal-associated Lispro 0-15 units tid ac (or 1unit: 5 gm carb ratio for each meal) Recent Glucose Levels Recent Labs 12/11/21 1201 12/11/21 0734 12/11/21 0507 12/11/21 0358 12/10/21 2345 12/10/21 1954 12/10/21 1659 12/10/21 1243 12/10/21 1030 12/10/21 0948 12/10/21 0907 12/10/21 0719 POCGLU 342* 198 208* 189 205* 225* 158 241* 262* 279* 268* 274* ASSESSMENT Patient is a 76 y.o. years old male with PMH significant for DM (Last A1C of 7.4%) who was admitted on 12/08/2021 for acute dyspnea and hypoxia. Diabetes moderately controlled and currently complicated by stress of hospitalization. Currently with variability of blood glucose levels while hospitalized requiring adjustment of insulin regimen and DM medications. Fasting and post prandial hyperglycemia. Increase ICR to 1:3. Increase Lantus by 20% to 42 units tonight. Appreciate RN giving insulin at the beginning of meals when possible. Will make recommendations at discharge based on hospital plan tomorrow. However, with A1c of 7.4% and Don's insistence that he is not having hypoglycemia at home, his current plan may indeed be adequate. PLAN 1. Lantus 42 units nightly 2. Lispro custom correction scale for BG>140, CF 20 3. Meal-associated Lispro 0-25 units tid ac (or 1unit: 3 gm carb ratio for each meal) Desirae Jett APRN [facility] Endocrinology Diabetes Management Pager [phone] minutes of this 35 minute visit was spent with the patient in counseling on diabetes and treatment plan, reviewing all glucose and insulin data as well as relevant laboratory results with the patient, and coordination of care on the inpatient unit including nursing and primary team. Iker Cuevas MD - 12/11/2021 7:20 AM EDT Images from the original note were not included. Inpatient Cardiology Progress Note Patient Name: Don Fatima Service: RAMP BOSS / PA Responsible Attending: Iker Cuevas MD Reason for continued hospitalization: ?? NSTEMI- s/p R/LHC- PCW 27, occluded SVGs s/p PCI to ostial LCX ?? ADHF and hypoxia- IV diuresis ?? Home likely Wednesday12/12/2021 ?? RCA to be worked on as an out patient ?? Medication titration Active Problems: Active Hospital Problems Diagnosis ??? Admitted with 2 days of sob, hypoxemia, and + trop. Known CAD with hx of [place] and CABG. DM. MARIA VICTORIA.ICM. ??? ASHD (arteriosclerotic heart disease) ??? Cardiomyopathy, ischemic ??? Non-ST elevation myocardial infarction (NSTEMI) ??? Acute HFrEF (heart failure with reduced ejection fraction) Resolved Hospital Problems No resolved problems to display. Interval History: No acute events overnight. Feels less SOB. No chest pain. Underwent R/LHC noting elevated filling pressures and occluded SVGs, patent THOMPSON-LAD and RPDA 95% lesion. Underwent TUCKER to prox LCX with plans for staged procedure to RPDA as outpatient. He was given Lasix 80mg IV x1 in r&d lab technician. Tolerated procedure well. Review of Systems: Review of Systems Constitutional: Positive for fatigue and unexpected weight change. Negative for fever. Respiratory: Positive for cough and shortness of breath. Cardiovascular: Positive for leg swelling. Negative for chest pain and palpitations. Gastrointestinal: Negative for abdominal pain, nausea and vomiting. Genitourinary: Negative for difficulty urinating. Skin: Negative for rash. Neurological: Negative for dizziness, syncope, weakness, light-headedness and headaches. Psychiatric/Behavioral: Negative for confusion. Telemetry: HR: 60-80s, SR/ST with rare PVCs and 4 beat NSVT Meds: Scheduled Meds: ??? spironolactone 25 mg Oral Daily ??? empagliflozin 10 mg Oral Daily ??? torsemide 40 mg Oral Daily ??? insulin glargine (Lantus;Semglee) (100 unit/mL) subcutaneous injection 42 Units Subcutaneous Nightly ??? insulin lispro 0-15 Units Subcutaneous TID WC ??? apixaban 5 mg Oral BID ??? insulin lispro 1-6 Units Subcutaneous Q4H LUZ ??? clopidogreL 75 mg Oral Daily ??? polyethylene glycoL (MIRALAX) oral powder 17 g Oral Daily ??? aspirin 81 mg Oral Daily ??? atorvastatin 40 mg Oral QPM ??? levothyroxine 175 mcg Oral Daily ??? losartan 100 mg Oral Daily ??? metoprolol tartrate 12.5 mg Oral Q6H LUZ ??? sodium chloride 0.9 % (flush) 5 mL Intravenous BID ??? pantoprazole EC 40 mg Oral Daily Continuous Infusions: PRN Meds:ipratropium-albuteroL, senna-docusate, bisacodyL, sodium chloride 0.9 % (flush), lidocaine,nitroGLYcerin, glucose 40% oral geL OR dextrose 10% OR glucagon, acetaminophen Physical Exam: Vital Signs: Last value Range last 12 hrs Temperature Temp: 36.5 ??C (97.7 ??F) Temp: [36.5 ??C (97.7 ??F)-36.6 ??C (97.9 ??F)] Heart Rate Heart Rate: 66 Heart Rate: [66-75] Blood Pressure BP: 120/56 BP: (120-130)/(40-71) Respiratory Rate Resp: 16 Resp: [16-18] SpO2 SpO2: 94 % SpO2: [92 %-94 %] Intake/Output Summary (Last 24 hours) at 12/11/2021 0953 Last data filed at 12/11/2021 0508 Gross per 24 hour Intake 720 ml Output 3950 ml Net -3230 ml Patient Vitals for the past 168 hrs: Weight 12/11/21 0510 86.9 kg (191 lb 9.3 oz) 12/10/21 0432 88.7 kg (195 lb 8.8 oz) 12/09/21 0943 89.1 kg (196 lb 6.9 oz) 12/08/21 1539 91.1 kg (200 lb 13.4 oz) Physical Exam Vitals reviewed. Constitutional: General: He is not in acute distress. Appearance: He is obese. HENT: Head: Normocephalic and atraumatic. Mouth/Throat: Pharynx: Oropharynx is clear. Eyes: General: Right eye: No discharge. Left eye: No discharge. Conjunctiva/sclera: Conjunctivae normal. Neck: Vascular: JVD present. Cardiovascular: Rate and Rhythm: Normal rate and regular rhythm. Pulses: Normal pulses. Heart sounds: Normal heart sounds. Pulmonary: Effort: No respiratory distress. Breath sounds: Rales present. No wheezing. Comments: On 4L O2 via NC Abdominal: Palpations: Abdomen is soft. Musculoskeletal: Cervical back: Normal range of motion and neck supple. Right lower leg: No edema. Left lower leg: No edema. Comments: Right metatarsal amputation Skin: General: Skin is warm and dry. Comments: Right and left wrist access sites with TR bands in place Neurological: General: No focal deficit present. Mental Status: He is alert and oriented to person, place, and time. Psychiatric: Mood and Affect: Mood normal. Lab Comments: Recent Labs 12/11/2142712/10/2142412/09/2118 WBC 8.8 9.4 17.2* HGB 11.9* 11.1* 12.6* HCT 36.9* 34.0* 38.9* PLATELET 211 183 193 Recent Labs 12/11/21 042 INR 1.6 Recent Labs 12/11/2142712/10/21 1946 12/10/21181112/10/21424 NA 142 -- 138 140 K 4.0 4.2 Not Perf 3.9 CL 104 -- 100 104 CO2 23 -- 22 23 BUN 49* -- 50* 54* CREATININE 1.43 -- 1.39 1.52* Recent Labs 12/09/21 06 AST 25 ALT 15 ALKPHOS 75 BILITOT 1.1 BILIDIR 0.2 Recent Labs 12/11/2142712/10/21181112/10/215 12/09/21 1930 12/09/21 0618 CALCIUM 8.6 8.3* 8.0* < > 8.8 MAGNESIUM 1.04 -- 0.95 -- 0.81 < > = values in this interval not displayed. Recent Labs 12/09/2161712/08/21220212/08/21 1802 TROPONINT 1.13* 0.92* 0.89* Pertinent Radiographic/Diagnostic Results: R/[facility] 12/10/21 Hemodynamics: Right Heart Pressures Resting: Syst Diast EDP a v m RA 13 12 10 RV 50 17 PA 63 28 38 PCW 27 40 27 Hemodynamic Profile: Profile 1 CO 5.00 CI 2.48 TSR 1,168 SVR 1,008 TPR 608 PVR 176 Technique Estimated Brittanie Left Heart Pressures Resting: Syst Diast EDP a v m Ao 106 52 73 LV 106 30 Conclusions: * Significant stenosis of the left main * Three vessel coronary artery disease (LAD, LCX and RCA) * Patent left internal mammary artery graft to the LAD * Obstructive disease of the saphenous vein graft to the Diagonal 1/OM1 * Moderate pulmonary hypertension * Elevated pulmonary capillary wedge pressure * Elevated left ventricular end diastolic pressure * Successful stent insertion of the ostial LCX lesion * See Dual Antiplatelet (DAPT) Recommendations above CXR 12/09/21 IMPRESSION * Increased bilateral multifocal airspace opacities, more prominent and confluent on the right, may reflect asymmetric edema or multifocal infection. * Unchanged pulmonary vascular congestion and cardiomegaly. TTE from [facility] 12/08/21 Prior Cardiac Studies: TTE 07/28/2019 SUMMARY: 1. The left ventricle is mildly [...] There is mild (1+/4+) mitral regurgitation present. Assessment: Don Fatima is a 76 y.o. 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 Ruled in for ACS with elevated troponin I 8000 (UNL >68) and EKG at his prior baseline with anterior Q waves and ST abnormalities in anterior lateral leads. ProBNP elevated (5419) and CXR with pulmonary edema. Presentation consistent with ADHFand NSTEMI type 1 versus 2 in setting of ADHF. He was loaded with aspirin and clopidogrel, started on heparin infusion, and continued on beta-chadwick therapy. Transferred to for further management of NSTEMI and ADHF. Symptomatic improvement before arrival and with normal saturations off oxygen. On 12/09 AM experienced acute hypoxia and dyspnea with evaluation consistent with acute pulmonary edema. A ggressive diuresis pursued. Underwent R/LHC 12/10/21 that showed elevated filling pressures with PCW 27 and occluded SVGs with patent THOMPSON-LAD. PCI to ostial LCX successful. Recommended outpatient staged PCI to RPDA. Will need optimized GDMT for ICM. Plan: # NSTEMI # ASCVD, s/p CABG 2016 Telemetry Troponin trend: 0.89- 0.92- 1.13 Continue heparin infusion Continue ASA 81mg daily. Loaded 324mg x1 (12/07). Stop ASA after 30 days of triple therapy Continue clopidogrel 75mg daily. Loaded 600mg x 1 (12/07) Continue metoprolol 12.5mg q6h Continue atorvastatin at increased to 40mg nightly. Monitor for ADRs. Telemetry monitoring, daily weights, I/O, routine labs LDL 36, TSH WNL, A1c 6.2% S/p R/LHC as noted above, TUCKER to ostial LCX ?? # Acute hypoxic respiratory failure in setting of pulmonary edema # Acute on chronic HFrEF with further reduction of LVEF (40-45% 07/2019 ->35% 11/2021) # Ischemic cardiomyopathy Admit proBNP 523 TTE as above CXR with congestion and pulmonary edema RHC with PCW of 27 at 195 lbs Continue with IV Lasix 80mg BID Stopped NTG gtt Continue amlodipine, losartan (ACEi caused cough), metoprolol dosing Plan to optimize GDMT (Entresto, Jardiance, spironolactone) post R/LHC ?? #Paroxysmal atrial fibrillation Currently in sinus rhythm. INR 2.3, given Vit K 2.5mg on 12/09 Daily INR Holding warfarin which is followed by his PCP. Home dosing 5 Mg HAYS/T/// and 7.5 mg /. [place] check DOAC, consider transition to DOAC if affordable Resume oral anticoagulation tonight Continue metoprolol dosing ?? #IDDM2 Home Lantus 35mg nightly, Humalog 25mg with meals, and metformin Hold metformin DM team consult appreciated Continue Lantus nightly with MILI and SSI- dosing per DM team ?? #CKD stage 3 Monitor renal function with diuresis Avoid nephrotoxic agents ?? #HTN BP: (120-130)/(40-71) trend over last 12 hours Continue metoprolol, losartan, and amlodipine #Hyperlipidemia Lipid panel: TC 105, HDL 42, TG 133, LDL 36 Continue atorvastatin at increased to 40 mg nightly. Monitor for ADRs. #COPD Presentation more consistent with ADHF no COPD exacerbation. No further IV methylprednisolone at this time. #MARIA VICTORIA On CPAP at home but does not know settings. Will order CPAP w/ auto titrate. ?? #Hypothyroidism status post thyroidectomy TSH WNL Continue levothyroxine. ?? Routine: #Code status: FULL #DVT prophylaxis: heparin infusion #GI prophylaxis: PPI Discussed with MD Janneth Peter PA 12/11/2021 Cardiology Attending Note I have seen and examined the patient. I agree with the findings above. Of particular note, breathingmuch better. had questions about limitations. Given EDP of 30 yesterday, I recommended staying in hospital and testing oral diuretic regimen. I spoke to by phone and answered his questions. Iker Cuevas MD [facility] Total time spent on review of records prior to visit, face to face time with patient during visit, documentation, and coordination of care with other clinicians: 25 minutes. . Iker Cuevas MD - 12/10/2021 12:30 PM EDT Images from the original note were not included. Inpatient Cardiology Progress Note Patient Name: Don Fatima Service: RAMP BOSS / PA Responsible Attending: Iker Cuevas MD Reason for continued hospitalization: NSTEMI- s/p R/LHC- PCW 27, occluded SVGs s/p PCI to ostial LCX ADHF and hypoxia- IV diuresis Active Problems: Active Hospital Problems Diagnosis ??? Admitted with 2 days of sob, hypoxemia, and + trop. Known CAD with hx of [place] and CABG. DM. MARIA VICTORIA.ICM. ??? ASHD (arteriosclerotic heart disease) ??? Cardiomyopathy, ischemic ??? Non-ST elevation myocardial infarction (NSTEMI) ??? Acute HFrEF (heart failure with reduced ejection fraction) Resolved Hospital Problems No resolved problems to display. Interval History: No acute events overnight. Feels less SOB. No chest pain. Underwent R/LHC this AM with elevated filling pressures and occluded SVGs, patent THOMPSON-LAD and RPDA 95% lesion. Underwent DESto prox LCX with plans for staged procedure to RPDA as outpatient. He was given Lasix 80mg IV x1 in r&d lab technician. Tolerated procedure well. Review of Systems: Review of Systems Constitutional: Positive for fatigue and unexpected weight change. Negative for fever. Respiratory: Positive for cough and shortness of breath. Cardiovascular: Positive for leg swelling. Negative for chest pain and palpitations. Gastrointestinal: Negative for abdominal pain, nausea and vomiting. Genitourinary: Negative for difficulty urinating. Skin: Negative for rash. Neurological: Negative for dizziness, syncope, weakness, light-headedness and headaches. Psychiatric/Behavioral: Negative for confusion. Telemetry: HR: 60-80s, SR/ST with rare PVCs and 4 beat NSVT Meds: Scheduled Meds: ??? insulin glargine (Lantus;Semglee) (100 unit/mL) subcutaneous injection 35 Units Subcutaneous Nightly ??? potassium chloride ER 40 mEq Oral Once ??? polyethylene glycoL (MIRALAX) oral powder 17 g Oral Daily ??? insulin lispro 0-12 Units Subcutaneous TID WC ? ? insulin lispro 1-6 Units Subcutaneous 4 Times Daily AC & HS ??? amLODIPine 5 mg Oral Daily ??? aspirin 81 mg Oral Daily ??? atorvastatin 40 mg Oral QPM ??? levothyroxine 175 mcg Oral Daily ??? losartan 100 mg Oral Daily ??? metoprolol tartrate 12.5 mg Oral Q6H LUZ ??? sodium chloride 0.9 % (flush) 5 mL Intravenous BID ??? pantoprazole EC 40 mg Oral Daily Continuous Infusions: ??? nitroGLYcerin Stopped (12/10/21 0824) ??? heparin (porcine) infusion 1,600 Units/hr (12/09/21 2317) PRN Meds:ipratropium-albuteroL, senna-docusate, bisacodyL, sodium chloride 0.9 % (flush), lidocaine,nitroGLYcerin, glucose 40% oral geL OR dextrose 10% OR glucagon, heparin (porcine) infusion AND heparin (porcine), acetaminophen Physical Exam: Vital Signs: Last value Range last 12 hrs Temperature Temp: 36.5 ??C (97.7 ??F) Temp: [36.5 ??C (97.7 ??F)] Heart Rate Heart Rate: 63 Heart Rate: [61-77] Blood Pressure BP: (!) 109/92 BP: (109-149)/(45-92) Respiratory Rate Resp: 17 Resp: [14-19] SpO2 SpO2: 96 % SpO2: [93 %-99 %] Intake/Output Summary (Last 24 hours) at 12/10/2021 1343 Last data filed at 12/10/2021 1300 Gross per 24 hour Intake 1058.58 ml Output 4000 ml Net -2941.42 ml Patient Vitals for the past 168 hrs: Weight 12/10/21 0432 88.7 kg (195 lb 8.8 oz) 12/09/21 0943 89.1 kg (196 lb 6.9 oz) 12/08/21 1539 91.1 kg (200 lb 13.4 oz) Physical Exam Vitals reviewed. Constitutional: General: He is not in acute distress. Appearance: He is obese. HENT: Head: Normocephalic and atraumatic. Mouth/Throat: Pharynx: Oropharynx is clear. Eyes: General: Right eye: No discharge. Left eye: No discharge. Conjunctiva/sclera: Conjunctivae normal. Neck: Vascular: JVD present. Cardiovascular: Rate and Rhythm: Normal rate and regular rhythm. Pulses: Normal pulses. Heart sounds: Normal heart sounds. Pulmonary: Effort: No respiratory distress. Breath sounds: Rales present. No wheezing. Comments: On 4L O2 via NC Abdominal: Palpations: Abdomen is soft. Musculoskeletal: Cervical back: Normal range of motion and neck supple. Right lower leg: No edema. Left lower leg: No edema. Comments: Right metatarsal amputation Skin: General: Skin is warm and dry. Comments: Right and left wrist access sites with TR bands in place Neurological: General: No focal deficit present. Mental Status: He is alert and oriented to person, place, and time. Psychiatric: Mood and Affect: Mood normal. Lab Comments: Recent Labs 12/10/21 0425 12/09/21 0618 12/08/21 1802 WBC 9.4 17.2* 15.6* HGB 11.1* 12.6* 11.8* HCT 34.0* 38.9* 35.8* PLATELET 183 193 178 Recent Labs 12/10/21 0425 INR 1.7 Recent Labs 12/10/21 0425 12/09/21 1930 12/09/21 0618 NA 140 138 139 K 3.9 4.2 4.2 CL 104 102 101 CO2 23 22 21* BUN 54* 56* 49* CREATININE 1.52* 1.75* 1.33 Recent Labs 12/09/21 0618 AST 25 ALT 15 ALKPHOS 75 BILITOT 1.1 BILIDIR 0.2 Recent Labs 12/10/21 0425 12/09/21 1930 12/09/21 0618 12/08/21 1802 CALCIUM 8.0* 8.1* 8.8 8.6 MAGNESIUM 0.95 -- 0.81 0.86 Recent Labs 12/09/2118 12/08/21 2203 12/08/21 1802 TROPONINT 1.13* 0.92* 0.89* Pertinent Radiographic/Diagnostic Results: R/[facility] 12/10/21 Hemodynamics: Right Heart Pressures Resting: Syst Diast EDP a v m RA 13 12 10 RV 50 17 PA 63 28 38 PCW 27 40 27 Hemodynamic Profile: Profile 1 CO 5.00 CI 2.48 TSR 1,168 SVR 1,008 TPR 608 PVR 176 Technique Estimated Brittanie Left Heart Pressures Resting: Syst Diast EDP a v m Ao 106 52 73 LV 106 30 Conclusions: * Significant stenosis of the left main * Three vessel coronary artery disease (LAD, LCX and RCA) * Patent left internal mammary artery graft to the LAD * Obstructive disease of the saphenous vein graft to the Diagonal 1 * Moderate pulmonary hypertension * Elevated pulmonary capillary wedge pressure * Elevated left ventricular end diastolic pressure * Successful stent insertion of the ostial LCX lesion * See Dual Antiplatelet (DAPT) Recommendations above CXR 12/09/21 IMPRESSION * Increased bilateral multifocal airspace opacities, more prominent and confluent on the right, may reflect asymmetric edema or multifocal infection. * Unchanged pulmonary vascular congestion and cardiomegaly. TTE from [facility] 12/08/21 Prior Cardiac Studies: TTE 07/28/2019 SUMMARY: 1. The left ventricle is mildly [...] There is mild (1+/4+) mitral regurgitation present. Assessment: Don Fatima is a 76 y.o. 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 Ruled in for ACS with elevated troponin I 8000 (UNL >68) and EKG at his prior baseline with anterior Q waves and ST abnormalities in anterior lateral leads. ProBNP elevated (5419) and CXR with pulmonary edema. Presentation consistent with ADHFand NSTEMI type 1 versus 2 in setting of ADHF. He was loaded with aspirin and clopidogrel, started on heparin infusion, and continued on beta-chadwick therapy. Transferred to for further management of NSTEMI and ADHF. Symptomatic improvement before arrival and with normal saturations off oxygen. On 12/09 AM experienced acute hypoxia and dyspnea with evaluation consistent with acute pulmonary edema. A ggressive diuresis pursued. Underwent R/LHC 12/10/21 that showed elevated filling pressures with PCW 27 and occluded SVGs with patent THOMPSON-LAD. PCI to ostial LCX successful. Recommended outpatient staged PCI to RPDA. Will need optimized GDMT for ICM. Plan: # NSTEMI # ASCVD, s/p CABG 2016 Telemetry Troponin trend: 0.89- 0.92- 1.13 Continue heparin infusion Continue ASA 81mg daily. Loaded 324mg x1 (12/07). Stop ASA after 30 days of triple therapy Continue clopidogrel 75mg daily. Loaded 600mg x 1 (12/07) Continue metoprolol 12.5mg q6h Continue atorvastatin at increased to 40mg nightly. Monitor for ADRs. Telemetry monitoring, daily weights, I/O, routine labs LDL 36, TSH WNL, A1c 6.2% S/p R/LHC as noted above, TUCKER to ostial LCX ?? # Acute hypoxic respiratory failure in setting of pulmonary edema # Acute on chronic HFrEF with further reduction of LVEF (40-45% 07/2019 ->35% 11/2021) # Ischemic cardiomyopathy Admit proBNP 523 TTE as above CXR with congestion and pulmonary edema RHC with PCW of 27 at 195 lbs Continue with IV Lasix 80mg BID Stopped NTG gtt Continue amlodipine, losartan (ACEi caused cough), metoprolol dosing Plan to optimize GDMT (Entresto, Jardiance, spironolactone) post R/LHC ?? #Paroxysmal atrial fibrillation Currently in sinus rhythm. INR 2.3, given Vit K 2.5mg on 12/09 Daily INR Holding warfarin which is followed by his PCP. Home dosing 5 Mg //// and 7.5 mg /. [place] check DOAC, consider transition to DOAC if affordable Resume oral anticoagulation tonight Continue metoprolol dosing ?? #IDDM2 Home Lantus 35mg nightly, Humalog 25mg with meals, and metformin Hold metformin DM team consult appreciated Continue Lantus nightly with MILI and SSI- dosing per DM team ?? #CKD stage 3 Monitor renal function with diuresis Avoid nephrotoxic agents ?? #HTN BP: (109-149)/(45-92) trend over last 12 hours Continue metoprolol, losartan, and amlodipine #Hyperlipidemia Lipid panel: TC 105, HDL 42, TG 133, LDL 36 Continue atorvastatin at increased to 40 mg nightly. Monitor for ADRs. #COPD Presentation more consistent with ADHF no COPD exacerbation. No further IV methylprednisolone at this time. #MARIA VICTORIA On CPAP at home but does not know settings. Will order CPAP w/ auto titrate. ?? #Hypothyroidism status post thyroidectomy TSH WNL Continue levothyroxine. ?? Routine: #Code status: FULL #DVT prophylaxis: heparin infusion #GI prophylaxis: PPI Discussed with MD Migdalia Peter PA-C Pager #[phone] 12/10/2021 Cardiology Attending Note I have seen and examined the patient. I agree with the findings above. Of particular note, cath showed patent THOMPSON to LAD but loss of SVG sequential graft from Ao to D1 and OM1. Ostial Cx and PDA appear to be targets for PCI. Ostial Cx highest priority. This was treated with single stent into LM. Willstage R PDA as outpatient in 2-3 weeks unless he has angina in the meantime. updated and given pictures. Iker Cuevas MD [facility] Total time spent on review of records prior to visit, face to face time with patient during visit, documentation, and coordination of care with other clinicians: 35 minutes. Iker Cuevas MD - 12/09/2021 7:28 AM EDT Images from the original note were not included. Inpatient Cardiology Progress Note Patient Name: Don Fatima Service: RAMP BOSS / PA Responsible Attending: Iker Cuevas MD Reason for continued hospitalization: NSTEMI- awaiting R/LHC ADHF and hypoxia- IV diuresis, R/LHC Active Problems: Active Hospital Problems Diagnosis ??? Admitted with 2 days of sob, hypoxemia, and + trop. Known CAD with hx of [place] and CABG. DM. MARIA VICTORIA.ICM. ??? ASHD (arteriosclerotic heart disease) NSTEMI 3VCAD Ischemic Cardiomyopathy 07/08/2017 CABG ??? Cardiomyopathy, ischemic 07/05/2017 LVEF=29% 10/07/2017 LVEF=45% 08/15/2018 LVEF= 30-35% ??? Non-ST elevation myocardial infarction (NSTEMI) ??? Acute HFrEF (heart failure with reduced ejection fraction) Resolved Hospital Problems No resolved problems to display. Interval History: Don Fatima was admitted 12/08 for NSTEMI and ADHF management. At 5AM woke withacute dyspnea and hypoxia. He required ventimask (35%, 8L). CXR showed pulmonary edema. He was givenLasix 40mg x1. Since has had ~1L UOP. Improvement in dyspnea and work of breathing. O2 requirements decreased to 6L O2 via NC. He continues to feel SOB, though somewhat improved. Minimal sleep overnight. Agreeable for ongoing diuresis and plan for R/LHC today. Review of Systems: Review of Systems Constitutional: Positive for fatigue and unexpected weight change. Negative for fever. Respiratory: Positive for cough and shortness of breath. Cardiovascular: Positive for leg swelling. Negative for chest pain and palpitations. Gastrointestinal: Negative for abdominal pain, nausea and vomiting. Genitourinary: Negative for difficulty urinating. Skin: Negative for rash. Neurological: Negative for dizziness, syncope, weakness, light-headedness and headaches. Psychiatric/Behavioral: Negative for confusion. Telemetry: HR: 60-130s, SR/SR with rare PVCs and 4 beat NSVT Meds: Scheduled Meds: ??? amLODIPine 5 mg Oral Daily ??? aspirin 81 mg Oral Daily ??? clopidogreL 75 mg Oral Daily ??? atorvastatin 40 mg Oral QPM ??? levothyroxine 175 mcg Oral Daily ??? losartan 100 mg Oral Daily ??? metoprolol tartrate 12.5 mg Oral Q6H LUZ ??? sodium chloride 0.9 % (flush) 5 mL Intravenous BID ??? insulin lispro 0-8 Units Subcutaneous TID WC ??? insulin glargine (Lantus;Semglee) (100 unit/mL) subcutaneous injection 28 Units Subcutaneous Nightly ??? insulin lispro 1-6 Units Subcutaneous TID AC ??? pantoprazole EC 40 mg Oral Daily Continuous Infusions: ??? heparin (porcine) infusion 1,600 Units/hr (12/09/21 0659) PRN Meds:ipratropium-albuteroL, sodium chloride 0.9 % (flush), lidocaine, nitroGLYcerin, glucose 40%oral geL OR dextrose 10% OR glucagon, heparin (porcine) infusion AND heparin (porcine), acetaminophen Physical Exam: Vital Signs: Last value Range last 12 hrs Temperature Temp: (!) 38.1 ??C (100.6 ??F) Temp: [36.8 ??C (98.2 ??F)-38.1 ??C (100.6 ??F)] Heart Rate Heart Rate: 94 Heart Rate: [81-116] Blood Pressure BP: 105/51 BP: (105-141)/(50-95) Respiratory Rate Resp: 22 Resp: [18-22] SpO2 SpO2: 94 % SpO2: [93 %-96 %] Intake/Output Summary (Last 24 hours) at 12/09/2021 0930 Last data filed at 12/09/2021 0855 Gross per 24 hour Intake 524 ml Output 3100 ml Net -2576 ml Patient Vitals for the past 168 hrs: Weight 12/08/21 1539 91.1 kg (200 lb 13.4 oz) Physical Exam Vitals reviewed. Constitutional: General: He is not in acute distress. Appearance: He is obese. He is ill-appearing. HENT: Head: Normocephalic and atraumatic. Mouth/Throat: Pharynx: Oropharynx is clear. Eyes: General: Right eye: No discharge. Left eye: No discharge. Conjunctiva/sclera: Conjunctivae normal. Cardiovascular: Rate and Rhythm: Regular rhythm. Tachycardia present. Pulses: Normal pulses. Heart sounds: Normal heart sounds. Pulmonary: Effort: No respiratory distress. Breath sounds: Rales present. No wheezing. Comments: Increased work of breathing On 6L O2 via NC with O2 sat 93% Abdominal: Palpations: Abdomen is soft. Musculoskeletal: Cervical back: Normal range of motion and neck supple. Right lower leg: No edema. Left lower leg: No edema. Comments: Right metatarsal amputation Skin: General: Skin is warm and dry. Neurological: General: No focal deficit present. Mental Status: He is alert and oriented to person, place, and time. Psychiatric: Mood and Affect: Mood normal. Lab Comments: Recent Labs 12/09/21 0618 12/08/21 1802 WBC 17.2* 15.6* HGB 12.6* 11.8* HCT 38.9* 35.8* PLATELET 193 178 No results for input(s): INR in the last 168 hours. Recent Labs 12/09/21 0618 12/08/21 1802 NA 139 138 K 4.2 4.5 CL 101 102 CO2 21* 20* BUN 49* 41* CREATININE 1.33 1.44 Recent Labs 12/09/21 0618 AST 25 ALT 15 ALKPHOS 75 BILITOT 1.1 BILIDIR 0.2 Recent Labs 12/09/21 0618 12/08/21 1802 CALCIUM 8.8 8.6 MAGNESIUM 0.81 0.86 Recent Labs 12/09/21 0618 12/08/21 2203 12/08/21 1802 TROPONINT 1.13* 0.92* 0.89* Pertinent Radiographic/Diagnostic Results: CXR 12/09/21 IMPRESSION * Increased bilateral multifocal airspace opacities, more prominent and confluent on the right, may reflect asymmetric edema or multifocal infection. * Unchanged pulmonary vascular congestion and cardiomegaly. TTE from [facility] 12/08/21 Prior Cardiac Studies: TTE 07/28/2019 SUMMARY: 1. The left ventricle is mildly [...] There is mild (1+/4+) mitral regurgitation present. Assessment: Don Fatima is a 76 y.o. 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 Ruled in for ACS with elevated troponin I 8000 (UNL >68) and EKG at his prior baseline with anterior Q waves and ST abnormalities in anterior lateral leads. ProBNP elevated (5419) and CXR with pulmonary edema. Presentation consistent with ADHFand NSTEMI type 1 versus 2 in setting of ADHF. He was loaded with aspirin and clopidogrel, started on heparin infusion, and continued on beta-chadwick therapy. Transferred to for further management of NSTEMI and ADHF. Symptomatic improvement before arrival and with normal saturations off oxygen. On 12/09 AM experienced acute hypoxia and dyspnea with evaluation consistent with acute pulmonary edema. Plan continued aggressive diuresis and NTG gtt for afterload reduction. Plan for R/LHC, ideally todayif able to lay flat. TTE showed further reduction of LVEF compared to prior 2019. Will need optimization of GDMT following catheterization. Plan: # NSTEMI type 1 versus 2 in setting of ADHF # ASCVD, s/p CABG 2016 Telemetry Troponin trend: 0.89- 0.92- 1.13 Continue heparin infusion Continue ASA 81mg daily. Loaded 324mg x1 (12/07) Continue clopidogrel 75mg daily. Loaded 600mg x 1 (12/07) Continue metoprolol 12.5mg q6h Continue atorvastatin at increased to 40mg nightly. Monitor for ADRs. Telemetry monitoring, daily weights, I/O, routine labs LDL 36, TSH WNL, A1c 6.2% Plan for R/LHC today ?? # Acute hypoxic respiratory failure in setting of pulmonary edema # Acute on chronic HFrEF with further reduction of LVEF (40-45% 07/2019 ->35% 11/2021) # Ischemic cardiomyopathy Admit proBNP 523 TTE as above CXR with congestion and pulmonary edema Continue with IV Lasix, increase to 80mg this AM Start NTG gtt for afterload reduction Continue amlodipine, losartan (ACEi caused cough), metoprolol dosing Plan for transition to GDMT (Entresto, Jardiance, spironolactone) post R/LHC Plan for R/LHC today ?? #Paroxysmal atrial fibrillation Currently in sinus rhythm. Holding warfarin which is followed by his PCP. Home dosing 5 Mg HAYS/T/// and 7.5 mg /. Daily INR Heparin infusion as above for ACS. Continue metoprolol dosing ?? #IDDM2 Home Lantus 35mg nightly, Humalog 25mg with meals, and metformin Hold metformin Continue reduced dose Lantus 28 units nightly. MILI and moderate correctional SSI. ?? #CKD stage 3 Monitor renal function with diuresis Avoid nephrotoxic agents ?? #HTN BP: (105-141)/(50-95) trend over last 12 hours Continue metoprolol, losartan, and amlodipine #Hyperlipidemia Lipid panel: TC 105, HDL 42, TG 133, LDL 36 Continue atorvastatin at increased to 40 mg nightly. Monitor for ADRs. #COPD Presentation more consistent with ADHF no COPD exacerbation. No further IV methylprednisolone at this time. #MARIA VICTORIA On CPAP at home but does not know settings. Will order CPAP w/ auto titrate. ?? #Hypothyroidism status post thyroidectomy TSH WNL Continue levothyroxine. ?? Routine: #Code status: FULL #DVT prophylaxis: heparin infusion #GI prophylaxis: PPI Discussed with MD Migdalia Peter PA-C Pager #[phone] 12/09/2021 Cardiology Attending Note I have seen and examined the patient. I agree with the findings above. Developed CHF early this am despite getting more iv lasix last evening. Feeling better now. INR > 2. Lungs still wet at base. Echo at [facility] showed EF 35% with mild mod MR slightly lower than last value here. -vit K 2.5 orally to facilitate correction of INR- this will take 12-24 hours to take effect -furosemide 80 mg iv now -postpone right and left heart cath until tomorrow given INR and ADHF -increase statin to achieve LDL < 70 -CPAP tonight Iker Cuevas MD [facility] Total time spent on review of records prior to visit, face to face time with patient during visit, documentation, and coordination of care with other clinicians: 40 minutes. Amber Sanches MD - 12/09/2021 5:37 AM EDT Pt woke up around 445AM with acute dyspnea and shakes.He required ventimask (35%, 8L). Pt was tachycapneic. Denied chest pain. Exam significant for right sided crackles. BP was in the 120, HR 110, afebrile. CXR showed pulmonary edema. ABG 7.43, 35, 67. FSG 190s. Pt was given lasix 40 mg IVx 1, duol nebs x 1 with improvement in dyspnea and work of breathing. He was switched to 6L NC. Pt's was updated in detailed on the phone. documented in this encounter H&P Notes Iker Cuevas MD - 12/08/2021 3:37 PM EDT Images from the original note were not included. Cardiology Admission H&P Patient Name: Don Fatima Date of : 1945 Age: 76 y.o. Hospital Admit Date: 12/08/2021 Inpatient Attending: Iker Cuevas MD PCP: Lovely Vicente MD Presenting Diagnosis/Chief Complaint: Shortness of breath while lying Active Problem List: Active Hospital Problems Diagnosis ??? Admitted with 2 days of sob, hypoxemia, and + trop. Known CAD with hx of [place] and CABG. DM. MARIA VICTORIA.ICM. ??? ASHD (arteriosclerotic heart disease) ??? Cardiomyopathy, ischemic ??? Non-ST elevation myocardial infarction (NSTEMI) ??? Acute HFrEF (heart failure with reduced ejection fraction) Resolved Hospital Problems No resolved problems to display. History of Present Illness: Don Fatima is a 76 y.o. male with history of CAD status post three-vessel CABG (THOMPSON-LAD, sequential SVG-OM1-D1) 07/07/2017 following late STEMI, ischemic cardiomyopathy with LVEF 40-45%, paroxysmal atrial fibrillation on outpatient warfarin, IDDM2, CKD III, hypertension, dyslipidemia, COPD, MARIA VICTORIA,right metatarsal amputation 08/09/2017, and hypothyroidism prior thyroidectomy in 2012 who presented to [facility] with 1 week progressing breathlessness with patient reporting orthopnea and needing to sleep in a chair. Otherwise he reports he can walk extended distances and flat ground. 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 He has had a dry cough. He reports he is 5 pounds up and usually weighs 200-210 pounds. He denies chest discomfort. Current complaints are similar to before his prior heart attack. Last cardiology visit 03/2021 with Liz Poole PA-C. At [facility], respiratory distress with hypoxia 86% on room air. EKG with sinus rhythm, anterior Q waves,ST elevation 1-[address] depressions I and aVL which are similar to prior tracings, troponins were elevated with high-sensitivity troponin I 8004 (UNL<60), and NT proBNP 5419. CXR showed pulmonary edema. He was loaded with clopidogrel 300 Mg x1 (12/07), ASA 324 Mg x1 (12/07), methylprednisolone IV, IVdiuretic with furosemide 40 mg IV x2, and nebulizers. He was transferred to for further management of NSTEMI and CHF exacerbation Past Medical History: Past Medical History: Diagnosis Date ??? BPH (benign prostatic hyperplasia) 11/28/2013 ??? CAD (coronary artery disease) ??? Melanoma 2006 mid back ??? Peripheral vascular disease ??? Urinary retention 04/05/2013 Surgical History/Problems: Past Surgical History: Procedure Laterality Date ??? PRG SOMATOSENSORY TEST, ANY/ALL PER. NERVES, TRUNK OR HEAD 03/28/2013 FACIAL NERVE MONITORING, SETUP performed by Manny Mcknight MD at [facility] OR ??? PRO AMPUTATION FOOT, TRANSMETATARSAL Right 08/09/2017 AMPUTATION, TRANSMETATARSAL (WRVU 12.71) performed by Yonathan Smith MD at [facility] OR ??? PRO CABG, ARTERIAL, SINGLE N/A 07/07/2017 @CABG, USING ARTERIAL GRAFT;SINGLE ARTERIAL GRAFT (WRVU 33.75) performed by Yuan Retana MD at [facility] OR ??? PRO CABG, ARTERY-VEIN, TWO N/A 07/07/2017 @CABG, TWO VENOUS GRAFTS & ARTERIAL GRAFT (WRVU 7.93) performed by Yuan Retana MD at [facility] OR ??? PRO COLONOSCOPY, REMV LESN, SNARE 01/16/2014 COLONOSCOPY, POLYPECTOMY, REMOVAL LESION BY SNARE performed by Nohemi Jaimes MD at [facility] ENDOSCOPY ??? PRO DRESSING CHANGE UNDER ANESTHESIA Right 08/11/2017 (MSURG) DRESSING CHANGE (FOR OTHER THAN IVAN) UNDER ANES. (WRVU 0.86) performed by Lamar Smith MD at [facility] OR ??? PRO ENDOSCOPY W/VIDEO-ASST VEIN HARVEST, CABG Right 07/07/2017 ENDOSCOPIC HARVEST VEIN(S) FOR CABG (WRVU 0.31) performed by Yuan Retana MD at [facility] MAIN OR ??? PRO THYROIDECTOMY 03/28/2013 THYROIDECTOMY, TOTAL OR COMPLETE performed by Manny Mcknight MD at [facility] OR Significant Family History: Family History Problem Relation Age of Onset ??? Lung Cancer Brother Social History: Social History Socioeconomic History ??? Marital status: Spouse name: Not on file ??? Number of children: Not on file ??? Years of education: Not on file ??? Highest education level: Not on file Occupational History ??? Not on file Tobacco Use ??? Smoking status: Former Smoker Packs/day: 3.00 Years: 5.00 Pack years: 15.00 Types: Cigarettes Quit date: 07/26/1967 Years since quittin.4 ??? Smokeless tobacco: Never Used Vaping Use ??? Vaping Use: Never used Substance and Sexual Activity ??? Alcohol use: No ??? Drug use: No ??? Sexual activity: Not Currently Partners: Female Other Topics Concern ??? Do You live alone? No ??? Tobacco in Home Not Asked Social History Narrative ??? Not on file Social Determinants of Health Financial Resource Strain: Not on file Food Insecurity: Not on file Transportation Needs: Not on file Physical Activity: Not on file Housing Stability: Not on file REVIEW OF SYSTEMS: Review of Systems Constitutional: Positive for unexpected weight change. Negative for fever. Respiratory: Positive for cough and shortness of breath. Cardiovascular: Negative for chest pain, palpitations and leg swelling. Gastrointestinal: Negative for blood in stool. Neurological: Negative for syncope and light-headedness. Medications given at OSH: 12/08/2021-aspirin 325 mg daily, clopidogrel 75 Mg daily, heparin infusion,levothyroxine 175 mcg daily, metoprolol succinate 50 mg daily (8:25 AM), furosemide 40 mg IV daily (8:30 AM). 12/07/2021- clopidogrel 600 Mg x1 (at 2300 hrs), aspirin 324 Mg x1 (at 2145 hrs.) methylprednisolone 125 mg IV x1 (at 2145 hrs.), furosemide 40 Mg IV x1 (at 2300 hrs.). Medications: Medications Prior to Admission Medication Sig Dispense Refill Last Dose ??? amLODIPine (Norvasc) 5 mg Tablet Take 5 mg by mouth daily. Past Week at Unknown time ??? ferrous sulfate 325 mg (65 mg iron) Tablet Take 325 mg by mouth daily (with breakfast). Tablet 4days a week. Past Week at Unknown time ??? aspirin 81 mg Capsule 81 mg every 24 hours. Past Week at Unknown time ??? losartan (COZAAR) 100 mg Tablet Take 100 mg by mouth daily. 12/07/2021 at Unknown time ??? atorvastatin (Lipitor) 40 mg Tablet Take 10 mg by mouth daily. 5 days weekly. Past Week at Unknown time ??? furosemide (Lasix) 20 mg Tablet Take 20 mg by mouth daily. Past Week at Unknown time ??? insulin lispro (HumaLOG) Insulin Pen Inject 25 Units subcutaneously 3 times daily (before meals). 12/07/2021 at Unknown time ??? LANTUS SOLOSTAR U-100 INSULIN pen 35 Units nightly. 12/07/2021 at Unknown time ??? ascorbic acid, Vitamin C, (VITAMIN C) 500 mg Tablet Take 500 mg by mouth daily. Past Week at Unknown time ??? TURMERIC ORAL Take 500 mg by mouth 2 times daily. 12/07/2021 at Unknown time ??? levothyroxine (SYNTHROID) 175 mcg Tablet Take 1 tablet by mouth daily. 1 tablet daily 6 days perweek, and 2 tablets 1 day per week. (Patient taking differently: Take 175 mcg by mouth daily. 1 tablet daily 6 days per week, and 2 tablets 1 day per week on Wednesday.) 102 tablet 3 12/07/2021 at Unknown time ??? meTOPROLOL succinate (TOPROL-XL) 25 mg Tablet Sustained Release 24 hr Take 50 mg by mouth daily.12/07/2021 at Unknown time ??? Magnesium Oxide 500 mg Capsule Take 500 mg by mouth daily. 12/07/2021 at Unknown time ??? warfarin (COUMADIN) 2.5 mg Tablet Take 1 tablet by mouth daily. (Patient taking differently: Take 2.5 mg by mouth daily. Variable dosing monitored by PCP. 2-3 tabs every evening as directed by PCP.As of 11/21/21- 5mg [place]/TW/F/Sa and 7.5mg M/Th.) Past Week at Unknown time ??? ACCU-CHEK ELIF PLUS TEST STRP Strip 2-3 times daily 100 each 1 Past Week at Unknown time ??? metFORMIN (GLUCOPHAGE) 850 mg Tablet Take 1 tablet by mouth 2 times daily (with meals). 60 tablet 12 12/07/2021 at Unknown time ??? BD INSULIN PEN NEEDLE UF MINI 31 gauge x 3/16 Needle 1 each by Other route 4 times daily. 0 Past Week at Unknown time Allergies: Allergies Allergen Reactions ??? Lisinopril Other (See Comments) Cough PHYSICAL EXAM: Last set of vital signs: BP 121/64 (BP Location (NBP): Left arm, Patient Position: Sitting) Pulse 74 Temp 36.9 ??C (98.4 ??F) (Oral) Resp 18 Ht 172.7 cm (5' 8) Wt 91.1 kg (200 lb 13.4 oz) SpO2 97% BMI 30.54 kg/m?? Physical Exam Constitutional: General: He is not in acute distress. Appearance: Normal appearance. He is obese. He is not toxic-appearing. HENT: Head: Normocephalic and atraumatic. Nose: No congestion or rhinorrhea. Mouth/Throat: Pharynx: Oropharynx is clear. Eyes: General: No scleral icterus. Neck: Vascular: JVD (10 cm/H2O) present. Cardiovascular: Rate and Rhythm: Normal rate and regular rhythm. Pulses: Normal pulses. Heart sounds: Normal heart sounds. No murmur heard. No friction rub. No gallop. Pulmonary: Effort: Pulmonary effort is normal. Breath sounds: Normal breath sounds. No wheezing, rhonchi or rales. Chest: Chest wall: No tenderness. Abdominal: General: Bowel sounds are normal. Tenderness: There is no abdominal tenderness. Musculoskeletal: General: Normal range of motion. Right lower leg: No edema. Left lower leg: No edema. Comments: Right metatarsal amputation Skin: Coloration: Skin is not jaundiced or pale. Neurological: General: No focal deficit present. Mental Status: He is alert and oriented to person, place, and time. Psychiatric: Mood and Affect: Mood normal. Behavior: Behavior normal. Diagnostics: LABS: Recent Results (from the past 24 hour(s)) POCT Glucose Result Value Ref Range POC Glucose 400 (H) 65 - 199 mg/dL Labs at [facility] 12/08/2021-troponin I 8004 (UN L <60), 12/07- WBC 13.7, hemoglobin 12.6, hematocrit 38.5, platelet 197, absolute neutrophils 11.9, INR 1.7, D-dimer 4 3, potassium 4.2, BUN 25, creatinine 1.5, GFR 46, glucose 214, A1c 7.3, magnesium 1.9, total bilirubin 1.2, AST 41, ALT 25, alk phos 86, albumin 3.5, coronavirus 2019 PCR negative, NT proBNP 5419. ASSESSMENT: Don Fatima is a 76 y.o. 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 She ruled in for ACS with elevated troponin I 8000 (UNL >68) and EKG at his prior baseline with anterior Q waves and ST abnormalities in anterior lateral leads. ProBNP elevated (5419) and CXR with pulmonary edema. He was loaded with ASA 325 Mgx1 (12/07), clopidogrel 600 Mg x1 (12/07), started on heparin infusion, continue beta-chadwick therapy.Transferred to for further management of NSTEMI and CHF exacerbation. Symptomatic improvement before arrival and with normal saturations off oxygen. TREATMENT PLAN: #NSTEMI #ASCVD Admit to cardiology. Continue heparin infusion. Continue ASA 81 mg daily. Loaded 324 Mg x1 (12/07). Continue clopidogrel 75 Mg daily. Loaded 600 mg x 1 (12/07). Continue metoprolol. Continue atorvastatin at increased to 40 Mg nightly. Monitor for ADRs. Trend troponins. Admission EKG. [facility] 12/09; consented. TTE. Telemetry monitoring, daily weights, I/O routine labs. Fasting lipid panel and TSH in a.m. #HFrEF Continue metoprolol and losartan. Lisinopril caused cough. Furosemide 40mg IV x1. He states she usually wakes 200-210 pounds. TTE #Paroxysmal atrial fibrillation Currently in sinus rhythm. Holding warfarin which is followed by his PCP. Home dosing 5 Mg HAYS/T/// and 7.5 mg M/. Heparin infusion as above for ACS. Continue beta-chadwick. #IDDM2 Home Lantus 35 Mg nightly, Humalog 25 Mg with meals, and metformin Hold metformin Continue reduced dose Lantus 28 units nightly. MILI and moderate correctional SSI. #CKD III- Monitor renal function with diuresis. Avoid nephrotoxic agents. #HTN-continue metoprolol, losartan, and amlodipine. #HLP- continue atorvastatin. #COPD-no further IV methylprednisone at this time. #MARIA VICTORIA- On CPAP at home but does not know settings. Will order cpap w/ autotitrate. #Hypothyroidism status post thyroidectomy-continue levothyroxine. Routine #Full code #Diet-carb control; n.p.o. after midnight for [facility] #DVT prophy- heparin infusion #GI prophy- PPI Discussed with MD Morgan Peter PA-C APP2 pager [phone] 12/08/2021 Cardiology Attending Note I have seen and examined the patient. I agree with the findings above. Hospital Problems 1. Acute heart failure (likely systolic): NYHA FC 3. Stage C. Lung crackles. Etiology not clear. No definite angina but has had some arm discomfort. Will diurese and evaluate for ischemia with catheterbased angiography. 2. Elevated troponin: Not clear if this is type 1 due to graft or [place] coronary stenosis vs acute injury from CHF. 3. PAF: currrently in NSR. Have replaced warfarin with heparin 4. PAD: stable 5. DM: stable 6. CKD: will monitor and minimize contrast. Pt very appreciative of Dr. Yuan Retana's care in 2018. Will let him know patient is here. Iker Cuevas MD [facility] documented in this encounter Miscellaneous Notes Care Management Discharge - Favian Norman, VAMSI - 12/12/2021 9:56 AM EDTSummary: No CM discharge needs identified CARE MANAGEMENT FINAL DISCHARGE NOTE Chart reviewed, care reviewed with primary team and at interdisciplinary rounds. Patient is medically ready for discharge to home. Needs for Transition of Care: Plan for discharge is: Home w/o Services Outpatient Agency/Support Group Needs: None Agency Referrals & Follow-up Care: None Transportation: family or friend will provide Functional status prior to admission: Assistive Equipment, Independent Home Environment: Others in the home: spouse. Current Living Arrangements: home/apartment/condo. Accessibility Concerns:non concerns, 2 story home with 4 MARKIE. Current Functional Ability: Independent DME used at home: walker - standard, cane - straight DME Needed at Discharge: None Patient is insured through: Primary Insurance: MEDICARE Payor: MEDICARE / Plan: MEDICARE PART A & B / Product Type: *No Product type* / Secondary Insurance: [facility] Prescription Coverage: Yes This plan was formulated with input from patient and team. All are in agreement with plan. Consult Note - Octavia Vaughn RN - 12/11/2021 8:01 AM EDT Don Fatima has been admitted with NSTEMI and has received TUCKER to ostial LCX. Plan for a staged intervention to RPDA in 2-4 weeks as an outpatient. A member of the cardiac rehab team will plan to meet with him after the staged intervention to discuss participation in cardiac rehab and assist with a referral if patient agrees. Plan of Care - Migdalia Parker PA - 12/10/2021 5:01 PM EDT Post Cardiac Cath Note S: Patient reports no chest pain or shortness of breath. Patient reports no back pain or wrist pain. O: Right and left wrist sites are clean, dry, intact without hematoma or bleeding. TR band has been removed. CMS intact. Last value Range last 12 hrs Temperature Temp: 36.5 ??C (97.7 ??F) Temp: -- Heart Rate Heart Rate: 63 Heart Rate: [61-77] Blood Pressure BP: 138/46 BP: (109-149)/(42-92) Respiratory Rate Resp: 17 Resp: [14-19] SpO2 SpO2: 96 % SpO2: [93 %-99 %] A/P. Post cardiac cath without complications. PONCHO SullivanC Pager #[phone] 12/10/2021 Initial Assessments - Nick Georges RN - 12/10/2021 1:56 PM EDT Office of Care Management Initial Assessment Nick Georges RN reviewed record and discussed patient with Care Team. Source of Information: Team, bedside nurse, medical record, and Spouse, Patient, Chart Review CM Introduced self/reviewed role; services were not accepted at this time. Patient will wait and seeafter interventions to discuss dispo needs. Reason for Hospitalization: Transfer, NStemi Covid Vaccination Status: (Unable to assess) Last COVID test: Lab Results Component Value Date [id number] Not Detected 12/08/2021 Past medical History: Past Medical History: Diagnosis Date ??? BPH (benign prostatic hyperplasia) 11/28/2013 ??? CAD (coronary artery disease) ??? Melanoma 2006 mid back ??? Peripheral vascular disease ??? Urinary retention 04/05/2013 Hospitalizations Within the Past 30 Days: no previous admission in last 30 days Current Decision-Making Capacity: Self Advance Care Planning: Attempt Cardiopulmonary Resuscitation - Inpatient Received -Advanced Directive: No, declines but AD is on file If AD's have not been completed Kisha Fatima/ spouse would be surrogate decision maker per [place] surrogate decision making law. (Only good for 180 days) Any patient receiving care at [facility] must abide by [place] law. The hierarchy for surrogate decision making is: (a) Patient???s spouse, or civil union partner or common law spouse unless there is a divorce proceeding, separation agreement, or restraining order limiting that person???s relationship with the patient. (b) Any adult son or daughter of the patient. (c) Either parent of the patient. (d) Any adult brother or sister of the patient. (e) Any adult grandchild of the patient. (f) Any grandparent of the patient. (g) Any adult aunt, uncle, niece, or nephew of the patient. (h) A close friend of the patient. (i) The agent with financial power of commercial attorney or a conservator appointed in accordance with RSA 464-A. (j) The guardian of the patient???s estate. Current Coping/Education/Information Needs: Patient is very frustrated and is refusing to answer questions as he wants to wait until interventons are completed to talk about d/c needs Current Functional Ability: Assistive Equipment and Assistive Person Functional Status Prior to Admission: Assistive Equipment, Independent Prior ADLs & IADLs: Independent with all ADLs & IADLs Home Environment: Others in the home: spouse. Current Living Arrangements: home/apartment/condo. Accessibility Concerns:non concerns, 2 story home with 4 MARKIE. Resource / Environmental Concerns: Resource/Environmental Concerns: none Current DME: walker - standard, cane - straight Home Address: [address] [place] [address] [place] [address] Social & Family Supports: All names listed below confirmed with patient as current and correct Extended Emergency Contact Information Primary Emergency Contact: Kisha Fatima Address: [address] [place] [address] [place] [address] [facility] Mobile Relation: Spouse Secondary Emergency Contact: Elba Swenson Address: [place], [place] [id number] [place] [address] Mobile Relation: Child Current Care Provided by: self Provides Primary Care For: no one Caregiver if needed: none Quality of Family relationships: helpful, involved, supportive Community Resources being provided currently: none Behavioral Health History: none in chart patient refuses to answer Substance Use/Abuse: Social History Tobacco Use Smoking Status Former Smoker ??? Packs/day: 3.00 ??? Years: 5.00 ??? Pack years: 15.00 ??? Types: Cigarettes ??? Quit date: 07/26/1967 ??? Years since quittin.4 Smokeless Tobacco Never Used In the past year have you used an illegal drug or used a prescription medication for non-medical reaons?: No 0 No problems reported 1-2 Low level 3-5 Moderate level 6-8 Substantial level 9- 10 Severe level In the past year have you had 5 or more drinks a day containing alcohol?: No 0 to 7 points: Low risk 8 to 15 points: Medium risk 16 to 19 points: High risk 20 to 40 points: Addiction likely Other Pertinent/Service Specific Information: none Health/Prescription Coverage: Primary Insurance: MEDICARE Payor: MEDICARE / Plan: MEDICARE PART A & B / Product Type: *No Product type* / Secondary Insurance: [employer] [facility] Prescription Coverage: Yes Preferred Pharmacy: [facility] [id number] [id number] - [place], [place] - [address] [place] [id number] [place] Status: Patient is a : unable to assess Primary Care Provider: Lovely Vicente MD [phone] Patient/Caregiver Goals of Treatment: Get out of here Potential Needs for Transition of Care: none Agency Referrals: none patient has used [facility] in the past Transportation: no concerns Transportation Anticipated: family or friend will provide Concerns to be Addressed: patient refuses services, discharge planning Assessment: Patient is admitted to [facility] Service pager [phone] for 76 y.o.??male??with h/o??CAD s/p 3vCABG (THOMPSON-LAD, sequential SVG-OM1-D1) 07/07/2017 following late STEMI, ischemic cardiomyopathy with LVEF 40-45%, paroxysmal atrial fibrillation on outpatient warfarin, IDDM2, CKD III, hypertension, dyslipidemia, COPD, MARIA VICTORIA, right metatarsal amputation 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??Ruled in for ACS with elevated troponin I 8000 (UNL >68) and EKG at his prior baseline with anterior Q wavesand ST abnormalities in anterior lateral leads. ProBNP elevated (5419) and CXR with pulmonary edema.??Presentation consistent with ADHF and NSTEMI type 1 versus 2 in setting of ADHF.??He was loaded with??aspirin and??clopidogrel, started on heparin infusion,??and??continued on??beta-chadwick therapy. Tr ansferred to for further management of NSTEMI??and??ADHF.??Symptomatic improvement before arrivaland??with normal saturations off oxygen.??On 12/09 AM experienced acute hypoxia and dyspnea with evaluation consistent with acute pulmonary edema. Plan continued aggressive diuresis and NTG gtt for afterload reduction. He is referred for R/LHC, for NSTEMI, pulmonary edema, further reduction of LVEF with RWMA. Plan: Based on current medical status and prior medical hx CM awaiting PT/OT recommendations after cardiac interventions to speak with patient and family about dispo plan and needs. CM will continue to monitor progress, follow for continuity of care and assist with discharge planning while patient is inpatient status on current unit. Nick Georges RN relationship consultant, Office of Care Management Pager: [phone] Brief Op Note - Vitaliy Nobles MD - 12/10/2021 8:31 AM EDT Images from the original note were not included. [facility] [place] [address] [id number] CORONARY ANGIOGRAM AND PERCUTANEOUS CORONARY INTERVENTION REPORT Patient: Don Fatima : 1945 MR number: [id number] Date of Service: 12/10/2021 Development Advisor: Vitaliy Nobles MD Fellow: Rancho Woods MD and Tobias Sun MD INDICATION: Don Fatima??is a 76 y.o.??male??with h/o??CAD s/p 3vCABG (THOMPSON- LAD, sequential SVG-OM1-D1) 07/07/2017 following late STEMI, ischemic cardiomyopathy with LVEF 40-45%, paroxysmal atrial fibrillation on outpatient warfarin, IDDM2, CKD III, hypertension, dyslipidemia, COPD, MARIA VICTORIA, right meta tarsal amputation 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 Ruled in for ACS with elevated troponin I 8000 (UNL >68) and EKG at his prior baseline with anterior Q waves and ST abnormalities in anterior lateral leads. ProBNP elevated (5419) and CXR with pulmonary edema. Presentation consistent with ADHF and NSTEMI type 1 versus 2 in setting of ADHF. He was loaded with aspirin and clopidogrel, started on heparin infusion, and continued on beta- chadwick therapy. Transferred to for further management of NSTEMI??and??ADHF. Symptomatic improvement before arrival and??with normal saturations off oxygen. On 12/09 AM experienced acute hypoxia and dyspnea with evaluation consistent with acute pulmonary edema. Plan continued aggressive diuresis and NTG gtt for afterload reduction. He is referred for R/LHC, for NSTEMI, pulmonary edema, further reduction of LVEF with RWMA. PROCEDURES PERFORMED: ??? Left heart cath, coronary angiogram. ??? IVUS of the Left Main ??? IVUS of the LCX ??? PCI of the Left Main ??? PCI of the LCX ??? Right heart cath RESULTS: Hemodynamics: Hemodynamic assessment demonstrates severely elevated LVEDP of 30 mmHg. Coronary circulation: The coronary circulation is right dominant. There was severe 3 vessel disease: ?? Left main: Angiography showed 50% diffuse disease (On IVUS the entire LM had a 50% plaque burden) ?? LAD: Angiography showed a 90% mid LAD lesion. The apical LAD is supplied by a THOMPSON graft, and hasmild to moderate diffuse disease. The Diag1 had a 99% ostial lesion. It receives faint retrograde flow from the sequential portion of the Di1ag to OM1 vein graft. However since the SVG graft is occluded, and the ostial LCX has a 95% lesion, the Diag1 is also likely ischemic. ?? Circumflex: Angiography showed a 95% ostial LCX lesion that was heavily calcified. The mid AV groove LCX has moderate 50-60% diffuse disease. ?? RCA: Angiography showed a 30% mid RCA lesion. The RPDA has severe 95% multiple tandem lesions with YULISSA 2 flow. Bypass graft circulation: ?? The THOMPSON to LAD is patent. ?? The SVG to the Diag1 to OM1 is occluded in its ostial origin from the aorta. However the sequential portion of the Diag1 to OM1 vein graft is patent. And since the ostium of the SVG graft is occluded, and the ostial LCX has a 95% lesion, the Diag1 is also likely ischemic. PCI REPORT: PCI of the distal LM and ostial LCX 95% lesion. A successful PCI was performed on the 95% lesion in the ostial LCX and 50% distal LM. We used a 7 FrEBU 3.75 guide. We administered heparin as the anticoagulant and loaded Prasugrel 60 mg as the antiplatelet agent. We used a RunThrough wire to cross the lesion into the LCX and used a BMW wire in the LAD. We dilated the lesion using a 2.75 x 15 mm NC balloon to 22 darshan. We performed IVUS which showed the entire LM had a 50% plaque burden and severe calcified disease in the LCX. We delivered a large 4.0 x 24 mm Synergy TUCKER stent in the proximal LCX lesion extending back into the LM ostium and deployed it at 14 darshan jailing the LAD wire. We then used the stent balloon to post-dilate the LCX part of the stent to 20 darshan pressure. We used an additional 5.5 x 15 mm NC balloon to 24 darshan to post-dilate theLM part of the vessel. Final IVUS showed well apposed stent and no dissections. Following intervention there was 0% residual stenosis. There were no site complications. Pre: Post: SUMMARY AND THERAPEUTIC RECOMMENDATIONS: ??? Don Fatima presents with a NSTEMI, pulmonary edema, a reduction of LVEF with RWMA and mod MR. He was found to have severely elevated LVEDP of 30 mmHg and occlusion of the SVG to the Diag1 to OM1, and severe 95% disease of the ostium of the LCX. Additionally she had RPDA with severe 95% multiple tandem lesions with YULISSA 2 flow. Today, we stented the ostial LCX into the LM with a large 4.0 x 24 mm extending from the LCX into the LM, and post-dilated the LM part with a 5.5 mm NC balloon. Following this we noted brisk flow up the retrograde portion of the sequential graft into the Diag, thus we probably relieved his Diag1 ischemia as well. We will let him recover from his ADHF and contrast load. We will bring him back for a PCI of the diffusely diseased 95% RPDA in 2-4 weeks. ??? Please continue Aspirin 81 mg daily, Plavix 75 mg and high intensity statin. He may restart Coumadin. Aspirin may be discontinued after 2 weeks of triple therapy. Plavix and coumadin continued thereafter. ??? The case was reviewed and discussed with the patient and Dr. Cuevas. ??? 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 ??? I was present during the entire procedure and personally dictated or confirmed the above report. Vitaliy Nobles MD [facility] 12/10/2021 8:31 AM Consult Note - Desirae Jett APRN - 12/10/2021 8:26 AM EDT Images from the original note were not included. Diabetes Management Team Inpatient Consult Date of Consultation: 12/10/2021 Consult Requested by: Cardiology Reason for Consultation: Don Fatima is a 76 y.o. male with PMH significant for CAD s/p CABG x 3, STEMI, ischemic cardiomyopathy with LVEF 40-45%, pAfib on warfarin, T2DM, CKDIII, HTN, HLD, COPD, MARIA VICTORIA, R metatarsal amputation and hypothyroidism s/p thyroidectomy 2012 who was admitted on 12/08/2021 currently being treated for hypoxia, dys. 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 Diabetes History: Don Fatima has had diabetes for 10 years. He has been on insulin for the last several years andis managed by his PCP. Lives in [place], [place] with his . States that he takes 25 units Humalog with meals recently, regardless of BG. He feels he has been well controlled (as indicated by A1c of 7.4%), but his states that his home BG readings are often in the mid 200s upon waking and before supper, and typically better controlled at lunch. Current outpatient diabetes regimen: Diabetes Provider: PCP Medications: Lantus 35 units nightly, Humalog 25 units TID with meals plus 1:50 BG >100 correction scale, metformin 850 mg BID Monitoring is done three times a day Most recent HA1c was done on 12/09/21 and was 7.4% Typical diet is: 3 meals and 1-2 snacks a day Breakfast- 2 eggs, 2 pieces of toast, black coffee Lunch- leftovers Supper- burger or pot roast Typical exercise regimen is none Trouble with hypoglycemia none that he is aware of , although is concerned he may be hypoglycemic overnight due to low A1c but frequent BG >250 at home in the last few weeks Current Weight: 88.7 kg, BMI 195 Diabetes Complications Status: Eyes: None Feet: CLI Sensory: peripheral neuropathy Autonomic: None although some concern of hypoglycemia unawareness Cardiovascular : s/p CABG x 3 Current Hospital Diabetes Care: Medications: Lantus 28 units nightly, meal insulin with 1:8 ICR, Lispro moderate correction scale q 4 hrs Monitoring: Fingerstick q 4 hrs Diet: CHO Level II, cardiac diet, 2gm NA restriction 2000mL fluid PMH Past Medical History: Diagnosis Date ??? BPH (benign prostatic hyperplasia) 11/28/2013 ??? CAD (coronary artery disease) ??? Melanoma 2006 mid back ??? Peripheral vascular disease ??? Urinary retention 04/05/2013 Current Hospital Medications: ??? [SEP Hold] polyethylene glycoL (MIRALAX) oral powder 17 g Oral Daily ??? [SEP Hold] insulin lispro 0-12 Units Subcutaneous TID WC ? ? [SEP Hold] insulin lispro 1-6 Units Subcutaneous 4 Times Daily AC & HS ??? [SEP Hold] amLODIPine 5 mg Oral Daily ??? [MAR Hold] aspirin 81 mg Oral Daily ??? [SEP Hold] clopidogreL 75 mg Oral Daily ??? [SEP Hold] atorvastatin 40 mg Oral QPM ??? [SEP Hold] levothyroxine 175 mcg Oral Daily ??? [MAR Hold] losartan 100 mg Oral Daily ??? [MAR Hold] metoprolol tartrate 12.5 mg Oral Q6H LUZ ??? [SEP Hold] sodium chloride 0.9 % (flush) 5 mL Intravenous BID ??? [SEP Hold] insulin glargine (Lantus;Semglee) (100 unit/mL) subcutaneous injection 28 Units Subcutaneous Nightly ??? [SEP Hold] pantoprazole EC 40 mg Oral Daily Infusions: ??? [SEP Hold] nitroGLYcerin Stopped (12/10/21 0824) ??? [SEP Hold] heparin (porcine) infusion 1,600 Units/hr (12/09/212316) PRN: [MAR Hold] ipratropium-albuteroL, [MAR Hold] senna-docusate, [SEP Hold] bisacodyL, [SEP Hold] sodiumchloride 0.9 % (flush), [MAR Hold] lidocaine, [MAR Hold] nitroGLYcerin, [MAR Hold] glucose 40% oral geL OR [SEP Hold] dextrose 10% OR [MAR Hold] glucagon, [MAR Hold] heparin (porcine) infusion AND [MAR Hold] heparin (porcine), [MAR Hold] acetaminophen Allergy: Allergies Allergen Reactions ??? Lisinopril Other (See Comments) Cough Social history: Social History Tobacco Use ??? Smoking status: Former Smoker Packs/day: 3.00 Years: 5.00 Pack years: 15.00 Types: Cigarettes Quit date: 07/26/1967 Years since quittin.4 ??? Smokeless tobacco: Never Used Vaping Use ??? Vaping Use: Never used Substance Use Topics ??? Alcohol use: No ??? Drug use: No Family history: Family History Problem Relation Age of Onset ??? Lung Cancer Brother Vitals Last value Range last 24 hrs Temperature Temp: 36.5 ??C (97.7 ??F) Temp: [36.3 ??C (97.3 ??F)-37 ??C (98.6 ??F)] Heart Rate Heart Rate: 64 Heart Rate: [64-94] Blood Pressure BP: 110/68 BP: (99-117)/(45-68) Respiratory Rate Resp: 18 Resp: [18-22] SpO2 SpO2: 99 % SpO2: [94 %-99 %] Physical Exam: Gen: NAD, talking in clear sentences. Laying in bed comfortably HEENT: oral mucus membranes moist no obvious inflammation Abd: Soft, non-distended EXT: Right TMA, No open areas or redness to both feet, pedal pulses intact Neuro: Moving all extremities. Grossly non-focal Labs: Lab Results Component Value Date BUN 54 (H) 12/10/2021 CREATININE 1.52 (H) 12/10/2021 GLUCOSE 372 (H) 12/09/2021 GLUCFASTING 210 (H) 12/10/2021 ESTGFR 44 (L) 12/10/2021 Lab Results Component Value Date HA1C 7.4 (H) 12/09/2021 No results found for: MICROALBUR Lab Results Component Value Date CHLPL 105 12/09/2021 Lab Results Component Value Date HDL 42 12/09/2021 Lab Results Component Value Date LDLCHOL 36 12/09/2021 Lab Results Component Value Date TRIG 133 12/09/2021 Lab Results Component Value Date CHOLHDL 2.5 12/09/2021 Assessment: Patient is a 76 y.o. years old male with PMH significant for DM (Last A1C of 7.4%) who was admitted on 12/08/2021 for acute dyspnea and hypoxia. Diabetes moderately controlled and currently complicated by stress of hospitalization. Currently with variability of blood glucose levels while hospitalized requiring adjustment of insulin regimen and DM medications. Don reports taking high doses of Humalog at home, at least 75 units, relative to his basal dose of35 units Lantus nightly. It is perplexing that his reports frequent BG in the 250s to 300s, while he reports no hypoglycemia, and A1c is 7.4%. Some concern of hypoglycemia unawareness so will continue Q4 hour blood glucose checks while adjusting insulin doses. Yesterday his total daily dose was 79 units and he was hyperglycemic throughout the day with no lows. Will increase Lantus to 35 units tonight to work toward more even 50/50 basal/bolus split. Estimate that if he is eating 60-100 g CHO per meal at home, his carb ratio is between 1:2 and 1:4. Will start conservatively with a 1:5 insulin to carb ratio with next meal. This is also his carb ratio when calculated using a TDD of 110 units and the rule of 500. Continue to correct 1:20 BG >140. Discussed difference between hospital and home insulin requirement. Will observe his insulin requirements through rest of stay and make recommendations for changes to home regimen as needed. Plan: 1. Lantus 35 units nightly 2. Lispro custom correction scale for BG>140, CF 20 3. Meal-associated Lispro 0-15 units tid ac (or 1unit: 5 gm carb ratio for each meal) jail diabetes care: Medications - Outpatient treatment regimen recommendations pending based on the hospital course. Monitoring - continue BG tid ac & hs Diet - low fat/low carb diet Exercise - weight-bearing exercise 30 min/day, as tolerated Thank you for allowing us to provide care for your patient Desirae Johnie [facility] Endocrin[facility] Pager [phone] minutes of this 80 minute visit was spent with the patient in counseling on diabetes and treatment plan, reviewing all glucose and insulin data as well as relevant laboratory results with the patient, and coordination of care on the inpatient unit Plan of Care - Maryjane Joyce RN - 12/10/2021 4:46 AM EDT OUTCOME EVALUATION NOTE: OUTCOME SUMMARY: Patient A&O x4. Continues on tele in SR (65-95). VSS, maintaining sats on 1L via NC. continue onheparin and nitro gtt. Has denied cp/pressure, dyspnea, discomfort. NPO since midnight for planned cardiac cath. Call light in reach PLAN MOVING FORWARD: Maintain heparin and nitro gtts Cardiac cath Continue to actively monitor Discharge planning as approp INDIVIDUALIZED FALL PREVENTION INTERVENTIONS: Patient-specific fall risk factors per assessment: [current deficits]: Tele and continuous pulse ox cords, IV pole and tubing, hospital environment Assistance [level of assistance required for transfers and ambulation]: SBA Supervision [direct monitoring required during toileting and ADLs]: eyes on Surveillance [continuous indirect monitoring]: Tele monitoring, continuous pulse ox cords, Purposeful hourly rounding Patient-specific fall prevention interventions for sensory deficits provided, if applicable: [X] YesLighting adjusted for specific tasks/activities, room near RN station, purposeful hourly rounding, nonskid socks when OOB, bed in lowest/locked position, Call cabello in reach CPG GOAL OUTCOME EVALUATION: ongoing Plan of Care - Madeleine Cary RN - 12/09/2021 6:43 PM EDT OUTCOME EVALUATION NOTE: OUTCOME SUMMARY: Patient A&Ox4. SR on tele. No complaints of CP/SOB. Patient received 2 doses of 80IV lasix. Heparin gtt maintained per protocol. Nitro gtt started this am. Patient's oxygen was weaned from 5LNC to 1LNC, CPAP ordered for HS. Still with high blood sugars, Diabetic Team consult for 12/10. Cardiac cath scheduled for 12/10. NPO after midnight. PLAN MOVING FORWARD: Cardiac catheterization, DM management, discharge planning as appropriate. INDIVIDUALIZED FALL PREVENTION INTERVENTIONS: Patient-specific fall risk factors per assessment: [current deficits]: tele/pulse ox cords, IV tubing/pole, unfamiliar surroundings Assistance [level of assistance required for transfers and ambulation]: independent Supervision [direct monitoring required during toileting and ADLs]: eyes only Surveillance [continuous indirect monitoring]: telemetry and pulse ox monitoring, purposeful hourly rounding Patient-specific fall prevention interventions for sensory deficits provided, if applicable: Lighting adjusted as needed, room near RN station, nonskid socks when OOB, bed in lowest/locked position, call cabello in reach, purposeful hourly rounding CPG GOAL OUTCOME EVALUATION: ongoing Consult Note - Landon Villafana RN - 12/09/2021 5:23 AM EDT Life Safety Program Consult Note Called to see Don Fatima who is a 76 y.o.male by 4E RN with concern for flash pulmonary edema. Patient admitted 12/08 with progressively increased orthopnea for ~1 week. Patient with PMH of CAD s/p post 3V CABG (THOMPSON-LAD, sequential SVG-OM1-D1) 07/07/2017, ischemic cardiomyopathy with LVEF 40-45%, paroxysmal atrial fibrillation on outpatient warfarin, IDDM2, CKD III, hypertension, dyslipidemia, COPD, MARIA VICTORIA, right metatarsal amputation, and hypothyroidism s/p thyroidectomy 2012. Admission Date/Time 12/08/2021 3:19 PM Hospital Day 1 day Problem List: Active Hospital Problems Diagnosis ??? Admitted with 2 days of sob, hypoxemia, and + trop. Known CAD with hx of [place] and CABG. DM. MARIA VICTORIA.ICM. ??? ASHD (arteriosclerotic heart disease) ??? Cardiomyopathy, ischemic ??? Non-ST elevation myocardial infarction (NSTEMI) ??? Acute HFrEF (heart failure with reduced ejection fraction) Resolved Hospital Problems No resolved problems to display. Active Non-Hospital Problems Diagnosis ??? 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 STEMI (ST elevation myocardial infarction) ??? On amiodarone therapy ??? S/P CABG x 3 ??? Atheroembolism of foot, right ??? Delayed surgical wound healing ??? Carpal tunnel syndrome ??? Hx of malignant melanoma ??? Hx of thyroid cancer ??? Leg cramps ??? Osteoarthrosis ??? Ischemic foot ??? Dependence on continuous positive airway pressure ventilation ??? Gastroesophageal reflux disease ??? Hearing impaired ??? Hyperlipidemia ??? Hypomagnesemia ??? Peripheral neuropathy ??? Critical lower limb ischemia ??? Postoperative retention of urine ??? BPH (benign prostatic hyperplasia) ??? Atypical nevus of abdominal wall ??? Urinary retention ??? MARIA VICTORIA (obstructive sleep apnea) on CPAP ??? Goiter ??? Seborrheic psoriasis- scalp and ingtergluteal area ??? Skin lesion of chest wall ??? Melanoma Allergies Allergen Reactions ??? Lisinopril Other (See Comments) Cough 24 hour Events: -Was just admitted and placed on Heparin gtt, consented for cardiac cath. Subjective: -Complaining of dry cough and severe SOB, denies chest pain, vision changes, nausea, or dizziness. -AO x4 Objective: -RR in the mid to upper 30's with accessory muscle use and shallow breaths. Crackles noted bilaterally, but predominantly in the RLL/RML with wheezing throughout right lung. -HR 110-120, Sinus tachycardia with PVC's. MAP >65, SBP in the 140's. -AB.43/35.9/67/23.4 with lactate of 2.70 while on Venti @ 8L/35%. -Chest xray: Increased bilateral multifocal airspace opacities, more prominent and confluent on the right, may reflect asymmetric edema or multifocal infection. Unchanged pulmonary vascular congestion and cardiomegaly. Laboratory: Lab Results Component Value Date WBC 15.6 (H) 12/08/2021 Hemoglobin 11.8 (L) 12/08/2021 Hematocrit 35.8 (L) 12/08/2021 Platelets 178 12/08/2021 Potassium 4.5 12/08/2021 Calcium 8.6 12/08/2021 CO2 20 (L) 12/08/2021 BUN 41 (H) 12/08/2021 Creatinine 1.44 12/08/2021 Assessment: Called to bedside for patient with concern for flash pulmonary edema. Patient arrived yesterday afternoon for worsening SOB and orthopnea, has been consented for cardiac cath which will be completed today. On exam, patient's mentation is intact, but he is extremely anxious, rigors present, but no temperature at this time. ABG obtained with results above, lungs sounds with crackles throughout predominantly in the RML/RLL, wheezing present as well. 40 mg IV lasix given and Duoneb, wheezing resolved, but crackles persist. RR elevated to the mid to upper 30's with accessory muscle use. Patient able to void large amount of clear yellow urine and was able to transition to 6 L NC from a Venti mask. Plan: 40 mg IV Lasix and Duoneb given. Right lungs base still sounds wet, wheezing has diminished and patient transitioned to 6 L NC. Patient to remain on Med/Surg floor, please page [phone] for any further questions or concerns. LANDON VILLAFANA RN 5:23 AM December 09, 2021 Plan of Care - Morgan Andrew PA - 12/08/2021 5:29 PM EDT Images from the original note were not included. Cardiac cath Pre Procedure Note The indications, expected benefits and potential risks of heart catheterization were reviewed in detail with the patient. The potential for , heart attack, stroke, kidney failure, hemorrhage, allergic reaction, vascular complications and infection were reviewed in detail. The possibility of stenting and other percutaneous intervention with associated risk was reviewed. The possible need for emergent coronary artery bypass surgery was reviewed. After a discussion about the above, and having answered all questions posed, the patient was provided with a consent which was reviewed and signed. ASA: 3: Patient with severe systemic disease Mallampati: III: only the base of the uvula can be seen Sedation Plan: moderate (conscious sedation) Assessment and Plan: Proceed with cardiac cath , see H&P note for further details. STEPHANIE Rebolledo 12/08/2021 Pager [phone] documented in this encounter Plan of Treatment Upcoming Encounters Date Type Specialty Care Team Description 02/19/2022 Laboratory Appointment Lab 02/19/2022 Office Visit Cardiology Liz Poole PA [facility] er Cardiology Dept [place], [place] [address] (Wo rk) 03/12/2022 Office Visit Cardiology Vitaliy Nobles MD [facility] CARDIOLOGY [place], [place] [address] (Wo rk) Scheduled Referrals Name Type Priority Associated Diagnoses Order S chedule Referral to Outpatient Referral Routine Acute HFrEF (heart Or dered: Cardiac Rehab failure with reduced 2021 ejection fraction) documented as of this encounter Procedures Procedure Name Priority Date/Time Associated Comments Diagnosis POCT GLUCOSE Routine 12/12/2021 7:42 Results for this AM EDT procedure are i n the results section. BMP W/FASTING GLUCOSE Routine 12/12/2021 4:51 Res ults for this AM EDT procedure are i n the results section. HEMOGRAM Routine 12/12/2021 4:51 Results for this AM EDT procedure are i n the results section. DIFFERENTIAL, AUTOMATED Routine 12/12/2021 4:51 R esults for this AM EDT procedure are i n the results section. HC PROTHROMBIN TIME Routine 12/12/2021 4:51 Resul ts for this AM EDT procedure are i n the results section. HC CBC,PLT & AUTO DIFF Routine 12/12/2021 4:51 AM EDT HC MAGNESIUM, SERUM Routine 12/12/2021 4:51 Resul ts for this AM EDT procedure are i n the results section. POCT GLUCOSE Routine 12/12/2021 3:43 Results for [...] the results section. POCT GLUCOSE Routine 12/11/2021 4:00 Results for this PM EDT procedure are i n the results section. POCT GLUCOSE Routine 12/11/2021 12:01 Results for this PM EDT procedure are i n the results section. COVID- PCR Routine 12/11/2021 10:13 Results for this [...] AUTO DIFF Routine 12/11/2021 4:28 AM EDT HC MAGNESIUM, SERUM Routine 12/11/2021 4:28 Resul ts for this AM EDT procedure are i n the results section. POCT GLUCOSE Routine 12/11/2021 3:58 Results for [...] the results section. POCT GLUCOSE Routine 12/10/2021 4:59 Results for this PM EDT procedure are i n the results section. POCT GLUCOSE Routine 12/10/2021 12:43 Results for this PM EDT procedure are i n the results section. EKG 12-LEAD STAT 12/10/2021 11:17 ST elevation Results for this AM EDT myocardial procedure are i n infarction (STEMI), the resu lts unspecified artery section. CARDIAC CATHETERIZATION Routine 12/10/2021 10:54 [...] procedure are i n the results section. POINT OF CARE BLOOD GAS Routine 12/10/2021 9:04 R esults for this HISTORICAL AM EDT procedure are i n the results section. POCT GLUCOSE Routine 12/10/2021 7:19 Results for this AM EDT procedure are i n the results section. HC UNFRACTIONATED Routine 12/10/2021 4:25 Results for this HEPARIN (HEP UFH) AM EDT procedure are in the results section. BMP W/FASTING GLUCOSE Routine 12/10/2021 4:25 Res ults for this AM EDT procedure are i n the results section. HEMOGRAM Routine 12/10/2021 4:25 Results for this AM EDT procedure are i n the results section. DIFFERENTIAL, AUTOMATED Routine 12/10/2021 4:25 R esults for this AM EDT procedure are i n the results section. HC PROTHROMBIN TIME Routine 12/10/2021 4:25 Resul ts for this AM EDT procedure are i n the results section. HC CBC,PLT & AUTO DIFF Routine 12/10/2021 4:25 AM EDT HC MAGNESIUM, SERUM Routine 12/10/2021 4:25 Resul ts for this AM EDT procedure are i n the results section. POCT GLUCOSE Routine 12/10/2021 1:58 Results for [...] the results section. POCT GLUCOSE Routine 12/09/2021 4:19 Results for [...] elevation Results for this AM EDT myocardial procedure are i n infarction (NSTEMI) the resu lts section. POCT GLUCOSE Routine 12/09/2021 7:28 Results for this AM EDT procedure are i n the results section. HC UNFRACTIONATED Routine 12/09/2021 6:18 Results for this HEPARIN (HEP UFH) AM EDT procedure are in the results section. BMP W/FASTING GLUCOSE Routine [...] HC VENIPUNCTURE Routine 12/09/2021 6:18 AM EDT HC TROPONIN T STAT 12/09/2021 6:18 Results for this AM EDT procedure are i n the results section. HC THYROID STIMULATING Routine 12/09/2021 6:18 Re sults for this HORMONE, SERUM AM EDT procedure are in the results section. HC MAGNESIUM, SERUM Routine 12/09/2021 6:18 Resul ts for this AM EDT procedure are i n the results section. HEMOGLOBIN A1C Routine 12/09/2021 6:18 Results fo r this AM EDT procedure are i n the results section. HEPATIC FUNCTION PANEL Routine 12/09/2021 6:18 Re sults for this AM EDT procedure are i n the results section. LIPID PANEL (REFLEX Routine 12/09/2021 6:18 Resul ts for this DIRECT LDL) AM EDT procedure are i n the results section. XR CHEST ONE VIEW STAT 12/09/2021 5:30 [...] n the results section. DIFFERENTIAL, AUTOMATED Routine 12/08/2021 6:02 R esults for this PM EDT procedure are i n the results section. HC CBC,PLT & AUTO DIFF Routine 12/08/2021 6:02 PM EDT HC TROPONIN T STAT 12/08/2021 6:02 Results for this PM EDT procedure are i n the results section. HC MAGNESIUM, SERUM Routine 12/08/2021 6:02 Resul ts for this PM EDT procedure are i n the results section. BASIC METABOLIC PANEL Routine 12/08/2021 6:02 Res ults for this (NON-FASTING) PM EDT procedure are in the results section. RAPID COVID-19 PCR Routine 12/08/2021 5:00 Result s for this ([facility]) PM EDT procedure are in the results section. EKG 12-LEAD STAT 12/08/2021 4:40 Non-ST elevation Results for this PM EDT myocardial procedure are i n infarction (NSTEMI) the resu lts section. POCT GLUCOSE Routine 12/08/2021 4:34 Results for this PM EDT procedure are i n the results section. documented in this encounter Results (ABNORMAL) POCT Glucose (12/12/2021 7:42 AM EDT) athologist Signature POC Glucose 215 (H) 65 - 199 [facility] mg/dL [facility] Comment: Supplemental ranges: <140 mg/dL before meals <180 mg/dL all other times of the day Specimen Anatomical Collection Method Collection Time Receive d Time (Source) Location / / Volume Laterality Blood 12/12/2021 7:42 AM 7:42 EDT AM EDT Ifeanyi Truong MD POINT OF CARE TEST ORDERABLE S Performing Organization Address City/State/[place] [address] (ABNORMAL) Differential, Automated (12/12/2021 4:51 AM EDT) athologist Signature Neutrophils % 75.4 % [facility] Neutr Abs (ANC) 5.95 1.70 - [facility] 6.10 [facility] x10(3)/[facility] LABORATORY Lymphocytes % 12.2 % [facility] Lymphocytes Abs 1.0 0.9 - 3.2 [facility] x10(3)/[facility] LABORATORY Monocytes % 9.5 % [facility] Monocyte Abs 0.8 0.3 - 0.9 [facility] x10(3)/[facility] LABORATORY Eosinophils % 1.8 % [facility] Eosinophils Abs 0.1 0.0 - 0.4 [facility] x10(3)/[facility] LABORATORY Basophils % 0.5 % [facility] Basophils Abs 0.0 0.0 - 0.1 [facility] x10(3)/[facility] LABORATORY Immature Gran % 0.60 % [facility] Comment: Immature granulocytes(IG's)percentage an d absolute count will include metamyelocytes, myelocytes, and promyelo cytes. Blood smears from CBCs yielding IG's will be scanned manually for lora espitia. If this scan disagrees with the automated IG or if promyelocytes are not ed, a manual differential will be performed. Melisa Gran Abs 0.05 (H) 0.00 - 0.04 x10(3)/[facility] LABORATORY Specimen Anatomical Collection Method Collection Time Receive d Time (Source) Location / / Volume Laterality Blood 12/12/2021 4:51 AM 5:06 EDT AM EDT Resulting Agency Comment Spec In Lab Bijan Sun MD HEMATOLOGY ORDERABLES Performing Organization Address City/State/ZIP Code Phon e Number [place] [id number] (ABNORMAL) Hemogram (12/12/2021 4:51 AM EDT) Analysis Performed At Patho logist Time Signature WBC 7.9 4.0 - 9.5 [facility] x10(3)/[facility] LABORATORY RBC 4.19 (L) 4.58 - [facility] 5.54 [facility] x10(6)/[facility] LABORATORY Hemoglobin 12.1 (L) 13.7 - [facility] g/dL [facility] Hematocrit 36.7 (L) 40.5 - [facility] 48.5 % [facility] MCV 87.6 82.9 - [facility] 93.1 [facility] LABORATORY MCH 28.9 27.5 - [facility] 32.1 pg [facility] MCHC 33.0 32.0 - [facility] 35.7 g/dL [facility] Platelets 231 145 - 357 [facility] x10(3)/[facility] LABORATORY RDWSD 47.2 (H) 36.0 - [facility] 45.0 [facility] LABORATORY RDWCV 14.6 (H) 11.4 - [facility] 13.8 % [facility] MPV 9.5 7.6 - 12.9 [facility] LABORATORY nRBC % Auto 0.0 % [facility] nRBC Abs Auto 0.000 0.000 - [facility] 0.000 [facility] x10(3)/[facility] LABORATORY Specimen Anatomical Collection Method Collection Time Receive d Time (Source) Location / / Volume Laterality Blood 12/12/2021 4:51 AM 2 5:06 EDT AM EDT Resulting Agency Comment Spec In Lab Bijan Sun MD HEMATOLOGY ORDERABLES Performing Organization Address City/[facility] [place] [address] (ABNORMAL) Prothrombin Time (12/12/2021 4:51 AM EDT) P athologist Signature PT 14.9 (H) 9.4 - 12.5 [facility] LABORATORY INR 1.3 [facility] Comment: An INR <2.0 indicates [...] Cuevas MD HEMATOLOGY ORDERABLES Performing Organization Address City/[facility] [place] [address] (ABNORMAL) BMP w/fasting Glucose (12/12/2021 4:51 AM EDT) P athologist Signature Glucose 152 (H) 65 - 99 [facility] Fasting mg/dL [facility] Comment: ?Fasting* Glucose Interpretive C riteria [...] of Diabetes Mellitus, Position Statement from the [employer]. ??Diabete s Care, Volume 33, Supplement 1, Jul 2009 BUN 52 (H) 10 - 20 mg/dL [facility] Creatinine 1.72 (H) 0.80 - 1.50 mg/dL [facility] Sodium 143 135 - 145 mmol/L [facility] Potassium 3.9 3.5 - 5.0 mmol/L [facility] Comment: Please note: ??Patients with WBC >100,00 0 may have falsely elevated Potassium levels. ??For accurate Potassium quantif ication in these patients send serum separator tube (gold top) for subsequent determinations. ??Contact the Clinical Chemistry Laboratory if there are any qu estions. Chloride 105 98 - 107 mmol/L [facility] CO2 21 (L) 22 - 31 mmol/L [facility] Anion Gap 17 (H) 5 - 15 mmol/L [facility] Calcium 8.9 8.5 - 10.5 mg/dL [facility] Estimated GFR 38 (L) >=60 mL/min/1.73 m?? [facility] Comment: This patient? s estimated [...] Organization Address City/State/ZIP Code Phon e Number [address] Magnesium (12/12/2021 4:51 AM EDT) athologist Signature Magnesium 1.02 0.69 - 1.07 [facility] mmol/L [facility] Specimen Anatomical Collection Method Collection Time Receive d Time (Source) Location / / Volume Laterality Blood 12/12/2021 4:51 AM 2 5:06 EDT AM EDT Resulting Agency Comment Spec In Lab Iker Cuevas MD CHEMISTRY ORDERABLES Performing Organization Address City/[facility]/ZIP Code Phon e Number [address] POCT Glucose (12/12/2021 3:43 AM EDT) athologist Signature POC Glucose 138 65 - 199 [facility] mg/dL [facility] Comment: Supplemental ranges: <140 mg/dL before meals <180 mg/dL all other times of the day Specimen Anatomical Collection Method Collection Time Receive d Time (Source) Location / / Volume Laterality Blood 12/12/2021 3:43 AM 2 3:43 EDT AM EDT Iker Cuevas MD POINT OF CARE TEST ORDERABLE S Performing Organization Address City/State/[place] [address] POCT Glucose (12/11/2021 11:44 PM EDT) athologist Signature POC Glucose 124 65 - 199 [facility] mg[facility]dL [facility] Comment: Supplemental ranges: <140 mg/dL before meals <180 mg/dL all other times of the day Specimen Anatomical Collection Method Collection Time Receive d Time (Source) Location / / Volume Laterality Blood 12/11/2021 11:44 12/11/2021 PM EDT 11:44 PM EDT Iker Cuevas MD POINT OF CARE TEST ORDERABLE S Performing Organization Address City/State/[place] [address] (ABNORMAL) POCT Glucose (12/11/2021 8:12 PM EDT) athologist Signature POC Glucose 200 (H) 65 - 199 [facility] mg/dL [facility] Comment: Supplemental ranges: <140 mg/dL before meals <180 mg/dL all other times of the day Specimen Anatomical Collection Method Collection Time Receive d Time (Source) Location / / Volume Laterality Blood 12/11/2021 8:12 PM 2 8:12 EDT PM EDT Iker Cuevas MD POINT OF CARE TEST ORDERABLE S Performing Organization Address City/[facility]/[place] [address] (ABNORMAL) POCT Glucose (12/11/2021 6:50 PM EDT) athologist Signature POC Glucose 245 (H) 65 - 199 [facility] mg/dL [facility] Comment: Supplemental ranges: <140 mg/dL before meals <180 mg/dL all other times of the day Specimen Anatomical Collection Method Collection Time Receive d Time (Source) Location / / Volume Laterality Blood 12/11/2021 6:50 PM 2 6:50 EDT PM EDT Iker Cuevas MD POINT OF CARE TEST ORDERABLE S Performing Organization Address City/State/[place] [address] (ABNORMAL) POCT Glucose (12/11/2021 4:00 PM EDT) athologist Signature POC Glucose 383 (H) 65 - 199 [facility] mg/dL [facility] Comment: Supplemental ranges: <140 mg/dL before meals <180 mg/dL all other times of the day Specimen Anatomical Collection Method Collection Time Receive d Time (Source) Location / / Volume Laterality Blood 12/11/2021 4:00 PM 4:00 EDT PM EDT Iker Cuevas MD POINT OF CARE TEST ORDERABLE S Performing Organization Address City/State/ZIP Code Phon e Number [address] (ABNORMAL) POCT Glucose (12/11/2021 12:01 PM EDT) P athologist Signature POC Glucose 342 (H) 65 - 199 [facility] mg/dL [facility] Comment: Supplemental ranges: <140 mg/dL before meals <180 mg/dL all other times of the day Specimen Anatomical Collection Method Collection Time Receive d Time (Source) Location / / Volume Laterality Blood 12/11/2021 12:01 12/11/2021 PM EDT 12:01 PM EDT Iker Cuevas MD POINT OF CARE TEST ORDERABLE S Performing Organization Address City/State/[place] [address] COVID-19 PCR (12/11/2021 10:13 AM EDT) Patholo gist Method Time Signature SARS-CoV-2 Not Detected Not Detected BARBARA RNA [facility] Comment: This result should be interpreted [...] diagnosis of COVID-19 is performed using the [employer] Alinity m RONNA S-CoV-2 Assay as authorized by the FDA Emergency Use Authorization (EUA). This EUA assay is intended for In-vitro Diagnostic (IVD) use with respiratory sp ecimens such as nasopharyngeal swabs collected from individuals during the ac [place] phase of infection. This assay is performed based on the instructions for use provided by [employer] and additional guidance provided by CDC and FDA. Testing is performed in the Clinical Genomics and Advanced Technolog y Laboratory within the Department of Pathology and Laboratory Medicine at [facility], certified under the Clinical Laboratory Improvement Amendments [...] is infected. As required or requested by public health a uthorities, positive specimens may be sent for additional [...] clinical management guidance information are available at [facility] CDC Coronavirus Disease 2019 (COVID-19) webpage under Information fo r Healthcare Professionals (https://www.cdc.gov/coronavirus/2019-nc ov/hcp/index.html) Additional information about this and ot her EUA tests can be found in provider and patient fact sheets at the following FDA website: https://www.fda.gov/medical-devices/qkocwtcqmof-umwbfmz-1395-tikjk-96-anfdkjyke- lfg-eurzoxdjujvwgu-smzpyzx-devices/ynclz-motwjxtfvrf-tmfb SARS-Cov-2 RNA Source RAMP BOSS Swab [facility] Specimen (Source) Anatomical Collection Method Collection Time Re ceived Time Location / / Volume Laterality Nasopharyngeal Swab 12/11/2021 10:13 0503/2022 AM EDT 11:16 AM EDT Comment: Symptoms->Surveillance Resulting Agency Comment Spec In Lab Iker Cuevas MD MICROBIOLOGY - GENERAL ORDER ROBSON Performing Organization Address City/[facility]/[place] [address] POCT Glucose (12/11/2021 7:34 AM EDT) P athologist Signature POC Glucose 198 65 - 199 [facility] mg/dL [facility] Comment: Supplemental ranges: <140 mg/dL before meals <180 mg/dL all other times of the day Specimen Anatomical Collection Method Collection Time Receive d Time (Source) Location / / Volume Laterality Blood 12/11/2021 7:34 AM 2 7:34 EDT AM EDT Iker Cuevas MD POINT OF CARE TEST ORDERABLE S Performing Organization Address City/[facility]/[place] [address] (ABNORMAL) POCT Glucose (12/11/2021 5:07 AM EDT) P athologist Signature POC Glucose 208 (H) 65 - 199 [facility] Comment: Supplemental ranges: <140 mg/dL before meals <180 mg/dL all other times of the day Specimen Anatomical Collection Method Collection Time Receive d Time (Source) Location / / Volume Laterality Blood 12/11/2021 5:07 AM 2 5:07 EDT AM EDT Iker Cuevas MD POINT OF CARE TEST ORDERABLE S Performing Organization Address City/[facility]/[place] [address] (ABNORMAL) Differential, Automated (12/11/2021 4:28 AM EDT) [facility] Method Time Signature Neutrophils % 79.6 % [facility] Neutr Abs (ANC) 7.01 (H) 1.70 - [facility] 6.10 [facility] x10(3)/[facility] LABORATORY Lymphocytes % 9.1 % [facility] Lymphocytes Abs 0.8 (L) 0.9 - 3.2 [facility] x10(3)/[facility] LABORATORY Monocytes % 9.2 % [facility] Monocyte Abs 0.8 0.3 - 0.9 [facility] x10(3)/[facility] LABORATORY Eosinophils % 1.3 % [facility] Eosinophils Abs 0.1 0.0 - 0.4 [facility] x10(3)/[facility] LABORATORY Basophils % 0.5 % [facility] Basophils Abs 0.0 0.0 - 0.1 [facility] x10(3)/[facility] LABORATORY Immature Gran % 0.30 % [facility] Comment: Immature granulocytes(IG's)percentage an d absolute count will include metamyelocytes, myelocytes, and promyelo cytes. Blood smears from CBCs yielding IG's will be scanned manually for concor dance. If this scan disagrees with the automated IG or if promyelocytes are not ed, a manual differential will be performed. Melisa Gran Abs 0.03 0.00 - 0.04 x10(3)/[facility] Y [facility] LABORATORY Specimen Anatomical Collection Method Collection Time Receive d Time (Source) Location / / Volume Laterality Blood 12/11/2021 4:28 AM 4:37 EDT AM EDT Resulting Agency Comment Spec In Lab Bijan Sun MD HEMATOLOGY ORDERABLES Performing Organization Address City/State/[place] [address] (ABNORMAL) Hemogram (12/11/2021 4:28 AM EDT) Analysis Performed At Patho logist Time Signature WBC 8.8 4.0 - 9.5 [facility] x10(3)/[facility] LABORATORY RBC 4.15 (L) 4.58 - [facility] 5.54 [facility] x10(6)/[facility] LABORATORY Hemoglobin 11.9 (L) 13.7 - [facility] 16.5 g/dL [facility] Hematocrit 36.9 (L) 40.5 - [facility] 48.5 % [facility] MCV 88.9 82.9 - [facility] 93.1 [facility] LABORATORY MCH 28.7 27.5 - [facility] 32.1 pg [facility] MCHC 32.2 32.0 - [facility] 35.7 g/dL [facility] Platelets 211 145 - 357 [facility] x10(3)/[facility] LABORATORY RDWSD 48.3 (H) 36.0 - [facility] 45.0 [facility] LABORATORY RDWCV 14.8 (H) 11.4 - [facility] 13.8 % [facility] MPV 9.6 7.6 - 12.9 [facility] LABORATORY nRBC % Auto 0.0 % [facility] nRBC Abs Auto 0.000 0.000 - [facility] 0.000 [facility] x10(3)/[facility] LABORATORY Specimen Anatomical Collection Method Collection Time Receive d Time (Source) Location / / Volume Laterality Blood 12/11/2021 4:28 AM 2 4:37 EDT AM EDT Resulting Agency Comment Spec In Lab Bijan Sun MD HEMATOLOGY ORDERABLES Performing Organization Address City/State/[place] [address] (ABNORMAL) Prothrombin Time (12/11/2021 4:28 AM EDT) P athologist Signature PT 17.7 (H) 9.4 - 12.5 [facility] sec [facility] INR 1.6 [facility] Comment: An INR <2.0 indicates [...] (Source) Location / / Volume Laterality Blood 12/11/2021 4:28 AM 2 4:37 EDT AM EDT Resulting Agency Comment Spec In Lab Iker Cuevas MD HEMATOLOGY ORDERABLES Performing Organization Address City/State/[place] [address] (ABNORMAL) BMP w/fasting Glucose (12/11/2021 4:28 AM EDT) P athologist Signature Glucose 207 (H) 65 - 99 [facility] Fasting mg/dL [facility] Comment: ?Fasting* Glucose Interpretive C riteria [...] of Diabetes Mellitus, Position Statement from the [place] [employer]. ??Diabete s Care, Volume 33, Supplement 1, Jul 2009 BUN 49 (H) 10 - 20 mg/dL [facility] Creatinine 1.43 0.80 - 1.50 mg/dL [facility] Sodium 142 135 - 145 mmol/L [facility] Potassium 4.0 3.5 - 5.0 mmol/L [facility] Comment: Please note: ??Patients with WBC >100,00 0 may have falsely elevated Potassium levels. ??For accurate Potassium quantif ication in these patients send serum separator tube (gold top) for subsequent determinations. ??Contact the Clinical Chemistry Laboratory if there are any qu estions. Chloride 104 98 - 107 mmol/L [facility] CO2 23 22 - 31 mmol/L [facility] Anion Gap 15 5 - 15 mmol/L [facility] Calcium 8.6 8.5 - 10.5 mg/dL [facility] Estimated GFR 48 (L) >=60 mL/min/1.73 m?? [facility] Comment: This patient? s estimated glomerular filtration rate (eGFR) is between 48 mL/min/1.73 m2 (patients with less muscl e mass per kg body weight) and 55 mL/min/1.73 m2 (patients with more muscl e [...] (Source) Location / / Volume Laterality Blood 12/11/2021 4:28 AM 2 4:37 EDT AM EDT Resulting Agency Comment Spec In Lab Iker Cuevas MD CHEMISTRY ORDERABLES Performing Organization Address City/State/ZIP Code Phon e Number [address] Magnesium (12/11/2021 4:28 AM EDT) P athologist Signature Magnesium 1.04 0.69 - 1.07 [facility] mmol/L [facility] Specimen Anatomical Collection Method Collection Time Receive d Time (Source) Location / / Volume Laterality Blood 12/11/2021 4:28 AM 2 4:37 EDT AM EDT Resulting Agency Comment Spec In Lab Iker Cuevas MD CHEMISTRY ORDERABLES Performing Organization Address City/State/ZIP Code Phon e Number [address] POCT Glucose (12/11/2021 3:58 AM EDT) P athologist Signature POC Glucose 189 65 - 199 [facility] mg/dL [facility] Comment: Supplemental ranges: <140 mg/dL before meals <180 mg/dL all other times of the day Specimen Anatomical Collection Method Collection Time Receive d Time (Source) Location / / Volume Laterality Blood 12/11/2021 3:58 AM 2 3:58 EDT AM EDT Iker Cuevas MD POINT OF CARE TEST ORDERABLE S Performing Organization Address City/State/[place] [address] (ABNORMAL) POCT Glucose (12/10/2021 11:45 PM EDT) athologist Signature POC Glucose 205 (H) 65 - 199 [facility] mg/dL [facility] Comment: Supplemental ranges: <140 mg/dL before meals <180 mg/dL all other times of the day Specimen Anatomical Collection Method Collection Time Receive d Time (Source) Location / / Volume Laterality Blood 12/10/2021 11:45 12/10/2021 PM EDT 11:45 PM EDT Iker Cuevas MD POINT OF CARE TEST ORDERABLE S Performing Organization Address City/[facility]/[place] [address] (ABNORMAL) POCT Glucose (12/10/2021 7:54 PM EDT) athologist Signature POC Glucose 225 (H) 65 - 199 [facility] Comment: Supplemental ranges: <140 mg/dL before meals <180 mg/dL all other times of the day Specimen Anatomical Collection Method Collection Time Receive d Time (Source) Location / / Volume Laterality Blood 12/10/2021 7:54 PM 2 7:54 EDT PM EDT Iker Cuevas MD POINT OF CARE TEST ORDERABLE S Performing Organization Address City/[facility]/[place] [address] Potassium (12/10/2021 7:46 PM EDT) athologist Signature Potassium 4.2 3.5 - 5.0 [facility] Comment: Please note: ??Patients with WBC [...] Organization Address City/State/[place] [address] (ABNORMAL) Basic Metabolic Panel (non-fasting) (12/10/2021 6:12 PM EDT) athologist Signature Glucose Lvl 246 (H) 65 - 199 [facility] mg/dL [facility] Comment: Diabetes: >=200 mg/dL plus symp toms BUN 50 (H) 10 - 20 mg/dL [facility] Creatinine 1.39 0.80 - 1.50 mg/dL [facility] Sodium 138 135 - 145 mmol/L [facility] Potassium Not Perf 3.5 - 5.0 [facility] Comment: Unable to quantitate due to sample hemol ysis. ??Sample redraw suggested. Called by: leana, Read back by: sidney michaud, Date/Time:12/10/21 19:06. Please note: ??Patients with WBC >100,00 0 may have falsely elevated Potassium levels. ??For accurate Potassium quantif ication in these patients send serum separator tube (gold top) for subsequent determinations. ??Contact the Clinical Chemistry Laboratory if there are any qu estions. Chloride 100 98 - 107 mmol/L [facility] CO2 22 22 - 31 mmol/L [facility] Anion Gap 16 (H) 5 - 15 mmol/L [facility] Calcium 8.3 (L) 8.5 - 10.5 mg/dL [facility] Estimated GFR 49 (L) >=60 mL/min/1.73 m?? [facility] Comment: This patient? s estimated glomerular filtration rate (eGFR) is between 49 mL/min/1.73 m2 (patients with less muscl e mass per kg body weight) and 57 mL/min/1.73 m2 (patients with more muscl e [...] Location / / Volume Laterality Blood 12/10/2021 6:12 PM 2 6:19 EDT PM EDT Resulting Agency Comment Spec In Lab Iker Cuevas MD CHEMISTRY ORDERABLES Performing Organization Address City/State/[place] [address] POCT Glucose (12/10/2021 4:59 PM EDT) athologist Signature POC Glucose 158 65 - 199 [facility] Comment: Supplemental ranges: <140 mg/dL before meals <180 mg/dL all other times of the day Specimen Anatomical Collection Method Collection Time Receive d Time (Source) Location / / Volume Laterality Blood 12/10/2021 4:59 PM 2 4:59 EDT PM EDT Iker Cuevas MD POINT OF CARE TEST ORDERABLE S Performing Organization Address City/State/[place] [address] (ABNORMAL) POCT Glucose (12/10/2021 12:43 PM EDT) P athologist Signature POC Glucose 241 (H) 65 - 199 [facility] mg/dL [facility] Comment: Supplemental ranges: <140 mg/dL before meals <180 mg/dL all other times of the day Specimen Anatomical Collection Method Collection Time Receive d Time (Source) Location / / Volume Laterality Blood 12/10/2021 12:43 12/10/2021 PM EDT 12:43 PM EDT Iker Cuevas MD POINT OF CARE TEST ORDERABLE S Performing Organization Address City/State/ZIP Code Phon e Number [place] [id number] LAB[address] EKG 12 Lead (12/10/2021 11:17 AM EDT) Component Value Ref Range Test Analysis Performed Pathologis t Method Time At Signature Ventricular rate 62 BPM MUSE SYSTEM Atrial Rate 62 BPM MUSE SYSTEM P-R Interval 142 ms MUSE SYSTEM QRS Duration 100 ms MUSE SYSTEM Q-T Interval 434 ms MUSE SYSTEM QTC Calculated 440 ms MUSE SYSTEM (Bezet) Calculated P Purdum 34 degrees MUSE SYSTEM Calculated R Purdum -39 degrees MUSE SYSTEM Calculated T P[place] 92 degrees MUSE SYSTEM INTERPRETATION Normal sinus rhythm MUSE SYSTEM Left axis deviation Minimal voltage criteria for LVH, may be normal variant ( [employer] product ) Cannot rule out Inferior infarct , age undetermined Anterolateral infarct (cited on or before 09-DEC-2021) Abnormal ECG When compared with ECG of 09-DEC-2021 07:57, Premature ventricular complexes are no longer Present Vent. rate has decreased BY ??39 BPM Confirmed by MD Jose, Erasmo ([id number]) on 12/10/2021 3:40:31 PM Specimen Anatomical Collection Method Collection Time Receive d Time (Source) Location / / Volume Laterality 12/10/2021 11:17 12/10/2021 3:40 AM EDT PM EDT Iker Cuevas MD ECG ORDERABLES Performing Organization Address City/State/ZIP Code Phon e Number MUSE SYSTEM CARDIAC CATHETERIZATION (12/10/2021 10:54 AM EDT) Specimen (Source) Anatomical Location Collection Method / Collectio n Time Received Time / Laterality Volume Narrative CARDIOMAC SYSTEM - 12/10/2021 12:04 PM E DT ?[facility] ? Cardiac Cathete rization/Intervention Report ? Patient Name: Kushal Don Mccollum. ? Procedure Date: 12/10/2021 ? A #: [id number] ? Primary Physician: Nobles, Vitaliy P ? Case #: [id number] ? File Name: [id number] ? Catheterization Order Number: [id number] ? [facility] ? Final Report [place], [place] ? Patient Name: ? Don E. Stewa rt ? ID#: ?[id number] ? : ?1945 ? Procedure Date: ? December 10, 2021 ? Case #: ? [id number] ? Room: ? 1 ? Case Physician: ? Fabian Lopez ?Start: ?08:41 ?Fellow: ? [place] M.D. ?Admission: ??12/08/2021 ?Bijan silverman M.D. ? Discharge: ??12/12/2021 ? Referring Physician: ??Marisela Dean APRN ? Procedures: ?* Coronary Angiography ?* Left Heart Catheterization ?* Bypass Graft Study ?* Coronary Ultrasound ?* Right Heart Catheterization ?* Oximetry ?* Coronary Stent Insertion ?* Arterial Blood Gases ? History ?Don Fatima is a 76 year o ld man. He has hypertension. The patient's ?smoking status is Former. He leach s hypercholesterolemia managed with lipid ?therapy. The patient has diabet es managed by oral medication and insulin. ?He has a prior history of coron adin artery disease. The patient is status ?post a remote myocardial infarc tion. He had remote coronary artery bypass ?surgery. The patient has a hist ory of an ejection fraction less than or ?equal to 35%. He has a history of CHF. The CHF is NYHA Functional Class ?III and is classified as Systol ic. He has a history of atrial ?fibrillation/atrial flutter. e patient has a history of peripheral ?vascular disease. He also has a history of chronic obstructive pulmonary ?disease. Prior to the initiatio n of this procedure, the patient was ?designated as ASA Class III. e [facility] clinical frailty scale is 5: Mildly ?Frail. ? Diagnostic Tests: ?Prior Coronary Angiography: ? Prior coronary angiograp hy was performed on 07/05/2017 and showed ? obstructive CAD. LV ejec tion fraction within 6 months is 35%. ?Electrocardiography: ? EKG was assessed by ECG. EKG was Abnormal. EKG showed ST Deviation ? >= 0.5 mm and other abno rmality. ?Medications Prior to Procedure: ? Aspirin, Angiotensin II Receptor Chadwick, Beta Chadwick, Calcium ? Channel Blocking Agent a nd Statin. ? Indications for Diagnostic Cath: ?The priority of the diagnostic procedure was Urgent. The indication for ?the r&d lab technician visit is ACS great er than 24 hrs and cardiomyopathy. Chest ?pain symptom assessment was: At ypical Angina. ? Technique: ?A 7 SLFr sheath was inserted in the right radial artery utilizing the ?Seldinger technique. A 5 SLFr s lelo was inserted in the left radial ?artery utilizing the Seldinger technique. A 6Fr sheath was inserted in ?the right median antecubital ve in utilizing the Seldinger technique. The ?left coronary artery was inject ed utilizing a 5Fr OLLIE RADIAL catheter. ?A 5Fr OLLIE RADIAL catheter was used to inject the right coronary artery. ?The mammary artery was injected utilizing a 5Fr OSMANI catheter. Left ?ventricular pressure was perfor med utilizing a 5Fr OLLIE RADIAL catheter. ?A 5Fr OLLIE RADIAL catheter was used to inject the bypass graft. Coronary ?stent insertion was performed a nd the equipment utilized will be ?described in the intervention s ummary section. 5,500 units of heparin ?were administered. A total of 2 00cc of Omnipaque were opened, 145cc of ?Omnipaque were administered and 55cc of Omnipaque were wasted. Radiation: ?Fluoro time was 36.9 minutes, d ose area product was 92,500 mGYcm2 and air ?kerma was 1,231 mGY. See the ca se log for additional details. ?The patient received the follow ing medications prior to and during the ?procedure: ? Unfractionated Heparin a nd Clopidogrel. ? Hemodynamics: ?Right Heart Pressures ? Resting: ? Syst D iast ? EDP ?a ?v ? m ?RA ? 13 ?12 ?10 ?RV 50 ?17 ?PA 63 ?28 ?38 ?PCW ?27 ?40 ?27 ? Hemodynamic Profile: ?Profile 1 ?CO ? 5.00 ?CI ? 2.48 ?TSR ? 1,168 ?SVR ? 1,008 ?TPR ?608 ?PVR ?176 ?Techniq ue ?Estimated Brittanie ?Left Heart Pressures ? Resting: ? Syst D iast ? EDP ?a ?v ? m ?Ao 106 ?? 52 ?73 ?LV 106 ? 30 ? Oximetry: ?Location ? % Sat ?Location ?%Sat ?Right Pulmonary ?55.0 ?Pulmonary Capillary ? 97.0 ?Artery ? Wedge ? Coronary Angiography: ?Dominance: Right ?Left Main ? There was a 50% diffuse stenosis of the distal segment of the left ? main artery. ??The left main was large. ?Left Anterior Descending ? There was severe diffuse (>=75% stenosis) disease of the proximal ? segment of the left ante rior descending artery (LAD). ??The LAD was ? large. ??Distal flow was via a bypass graft. ? There was a 99% diffuse stenosis of the ostial segment of the first ? diagonal branch (Diagona l 1) of the LAD. ??The Diagonal 1 was ? moderate in size. ?Left Circumflex ? There was mild diffuse ( <=25% stenosis) disease of the entire vessel ? segment of the left circ umflex artery (LCX). ??The ostial segment of ? the LCX had a calcified single discrete 90% stenosis. ??There also ? was a 60% single discret e stenosis of the mid segment of the LCX. ? There was moderate diffu se (<=50% stenosis) disease of the mid ? segment of the first obt use marginal branch (OM1) of the LCX. ??The ? OM1 was moderate in size . ?Right Coronary Artery ? There was mild diffuse ( <=25% stenosis) disease of the entire vessel ? segment of the right cor onary artery (RCA). ? There was a 95% diffuse stenosis of the entire vessel segment of the ? right posterior descendi ng branch (RPDA) of the RCA. ??The RPDA was ? moderate in size. ? Bypass Grafts: ?There was a total of two bypass grafts evaluated during this procedure. ?1. ?? Left internal mammary art anila graft to the LAD ? There was a left interna l mammary artery graft with a single ? anastomosis to the left anterior descending artery (LAD). ? There was no evidence of obstruction in this graft. Distal flow was ? normal. ?2. ?? Saphenous vein graft to t he Diagonal 1/OM1 ? There was a saphenous ve in graft with sequential anastomoses to the ? first diagonal branch (D iagonal 1) of the LAD and the first obtuse ? marginal branch (OM1) of the LCX. ? There was a single discr ete total occlusion of the ostial portion of ? the segment of this maylin t between the origin of this graft and the ? Diagonal 1. The entire s egment of this graft between the Diagonal 1 ? and the OM1 had mild dif fuse (<=25% stenosis) disease. ? Intravascular Imaging/Physiology: ?Intravascular Ultrasound was pe rformed in the ostial LCX using a 7 Fr EBU ?3.75 guiding catheter and a 3.5 Fr [place] [employer] 20 Mhz using Manual ?pullback. ??Imaging was success ful. ??Image quality was good. ??The ostial ?LCX showed moderate diffuse ath erosclerotic plaque with scattered three ?quadrant calcification. ??Measu rements were performed after pre- dilation. ?Post Intervention: The stent wa s well expanded and apposed. ?Intravascular Ultrasound was pe rformed in the distal LM using a 7 Fr EBU ?3.75 guiding catheter and a 3.5 Fr Bill [employer]'[place] 20 Mhz using Manual ?pullback. ??Imaging was success ful. ??Image quality was good. ??The distal ?LM showed moderate diffuse athe rosclerotic plaque. ?Post Intervention: The stent wa s well expanded and apposed. ? Indication for Intervention: ?Coronary intervention was indic ated for primary therapy for an acute ?myocardial infarction. The prio rity for the procedure was Urgent. The ?NCDR indication for the procedu re was NSTE-ACS. LVEF within one week was ?35%. Syntax Score was Intermedi ate. Right Heart catheterization was ?initiated for Acute on chronic systolic (congestive) heart failure ?(I50.23). ? Intervention Summary: ?Left Circumflex Artery ? Ostial 90% ? Stent insertion was performed on the 90% stenosis in the ? ostial segment of the LCX. This was a de fe lesion. ? According to th e ACC/AHA classification system, this lesion ? was a type C hi gh risk lesion. Primary prevention of ? restenosis was the indication for stent insertion. A guidewire ? was placed acro ss this lesion. Vessel flow pre intervention ? was YULISSA 2. Les ion length was 24mm. This lesion was severely ? calcified. ? Stent insertion was accomplished through a 7 Fr. EBU 3.75 ? guide. ??The mirna hanks was predilated with a 2.75mm NC EUPHORA 15 ? MM balloon with a maximum inflation pressure of 20 ? atmospheres. ?? A premounted 4.00 x 24 mm Synergy XD (TUCKER) was ? deployed with a maximum inflation pressure of 24 atmospheres. ? Following stent deployment, the lesion was dilated using a ? 5.50mm NC EMERG E 15 MM balloon with a maximum inflation ? pressure of 20 atmospheres. ? The final outco me was defined as successful. A coronary ? arteriolar vaso dilator was administered as part of the ? intervention on this lesion. There was no residual stenosis ? following this intervention. The final YULISSA flow was 3. ? PCI of the dist al LM and ostial LCX 95% lesion. ? A successful PC I was performed on the 95% lesion in the ostial ? LCX and 50% dis esau LM. We used a 7 Fr EBU 3.75 guide. We ? administered he adwoa as the anticoagulant and loaded Prasugrel ? 60 mg as the an tiplatelet agent. We used a RunThrough wire to ? cross the lesio n into the LCX and used a BMW wire in the LAD. ? We dilated the lesion using a 2.75 x 15 mm NC balloon to 22 ? darshan. We perform ed IVUS which showed the entire LM had a 50% ? plaque burden a nd severe calcified disease in the LCX. We ? delivered a lar ge 4.0 x 24 mm Synergy TUCKER stent in the ? proximal LCX le latonya extending back into the LM ostium and ? deployed it at 14 darshan jailing the LAD wire. We then used the ? stent balloon t o post-dilate the LCX part of the stent to 20 ? darshan pressure. W e used an additional 5.5 x 15 mm NC balloon to ? 24 darshan to post- dilate the LM part of the vessel. Final IVUS ? showed well gera osed stent and no dissections. Following ? intervention th ere was 0% residual stenosis. There were no ? site complicati ons. ? Vascular Access: ?Vascular Access Management: ? Mechanical Compression o f the left radial artery access site was ? performed. ? Manual Compression of th e right median antecubital vein access site ? was performed. ? Mechanical Compression o f the right radial artery access site was ? performed. ? Point of Care Testing: ?ABG: ? Arterial Blood gasses we re performed using the I-Stat analyzer at ? 09:10: pH: 7.41, pCO2: 4 0.0, pO2: 63.0, sPO2: 92%, HCO3: 25 on FIO2: ? 4 L NC. ?I-Stat: ? I-Stat was performed usi ng the I-Stat analyzer at 09:10: Na+: 143, ? K+: 3.7, iCa++: 1.07, Hc t: 30%, Hb: 10.2. ? Dual Antiplatelet (DAPT) Recommendations : ?Drug eluting stent (TUCKER) insert ed. ?P2Y12 Loading dose Prasugrel 60 mg PO given in lab. ?Recommended anti-platelet/anti- thrombotic regimen: ?Continue aspirin 81 mg daily fo r 7 days then stop. Restart aspirin 81 mg ?daily in 12 months and continue unless contraindicated. ?Continue clopidogrel 75 mg gomez y for 12 months then stop. ?Continue warfarin to INR of 2.0 -2.5 for indefinitely. ?Custom Protocol: 2 weeks of tri ple therapy including aspirin, ?clopidogrel, and warfarin. Foll owed by cessation of aspirin and ?continuing clopidogrel and warf aleksandra only for 12 months. Can restart ?aspirin after 12 months as well as stopping clopidogrel at that time. ?These recommendations are made at the time of the intervention. Patient ?and provider preferences or a c hanging clinical situation may require ?modification of this regimen. C onsult [facility] Interventional Cardiology for ?questions. ?The 1 year bleeding risk as nusrat culated by the PRECISE DAPT score is High ?risk. ?High Bleeding Risk - Anticoagul ation and DAPT: ?- ??Assess ischemic and bleedin g risks using validated risk predictors ?(e.g. CHADS2-VASC, HAS-BLED, MO ECISE DAPT, DAPT Score) ?- ??Keep anticoagulant [...] 2.1 ??08 Dec 2019) ? Conclusions: ?* Significant stenosis of the l eft main ?* Three vessel coronary artery disease (LAD, LCX and RCA) ?* Patent left internal mammary artery graft to the LAD ?* Obstructive disease of the sa phenous vein graft to the Diagonal 1/OM1 ?* Moderate pulmonary hypertensi on ?* Elevated pulmonary capillary wedge pressure ?* Elevated left ventricular end diastolic pressure ?* Successful stent insertion of the ostial LCX lesion ?* See Dual Antiplatelet (DAPT) Recommendations above ? Complications/Events: ?The patient had no complication s during these procedures. ? Comments: ?SUMMARY AND THERAPEUTIC RECOMME NDATIONS: ?Don Fatima presents with a NSTEMI, pulmonary edema, a reduction of ?LVEF with RWMA and mod MR. Gonzalo soares as found to have severely elevated LVEDP ?of 30 mmHg and occlusion of the SVG to the Diag1 to OM1, and severe 95% ?disease of the ostium of the LC X. Additionally she had RPDA with severe ?95% multiple tandem lesions wit h YULISSA 2 flow. Today, we stented the ?ostial LCX into the LM with a l arge 4.0 x 24 mm extending from the LCX ?into the LM, and post-dilated t he LM part with a 5.5 mm NC balloon. ?Following this we noted brisk f low up the retrograde portion of the ?sequential graft into the Diag, thus we probably relieved his Diag1 ?ischemia as well. We will let oumar im recover from his ADHF and contrast ?load. We will bring him back fo r a PCI of the diffusely diseased 95% RPDA ?in 2-4 weeks. ?Please continue Aspirin 81 mg d aily, Plavix 75 mg and high intensity ?statin. He may restart Coumadin . Aspirin may be discontinued after 2 ?weeks of triple therapy. Plavix and coumadin continued thereafter. ?The case was reviewed and discu ssed with the patient and Dr. Cuevas. ?I advised cardiac rehab after R PDA PCI. ?The attending physician was presen t for the entire procedure. ?Dr. Vitaliy Nobles M.D. was present during the moderate sedation intraservice ?time as documented by the sedation nurse. ??Case time = 02:07. ?Dr. Vitaliy Nobles M.D. performed th e coronary angiography, left heart ?catheterization, right heart roseanne terization, oximetry, ABG, stent ?insertion-coronary, IVUS # coronar y and bypass graft study. ? Vitaliy P Mallorie, M.D. ? Electronically Signed by: Vitaliy P Mallorie, M .D. ? Report Finalized: 12/10/2021 ??11:55 ? Report Last Ammended: 01/14/2022 ??12:09 ? Procedure Note Vitaliy Nobles MD - 01/14/2022 [facility] Cardiac Catheterization/Intervention Re port Patient Name: Don Fatima Procedure Date: 12/10/2021 A #: [id number] Primary Physician: Vitaliy Nobles Case #: [id number] File Name: [id number] Catheterization Order Number: [id number] [facility] Final Report [place], [place] Patient Name: Don Fatima ID#: [id number] : 1945 Procedure Date: December 10, 2021 Case #: [id number] Room: 1 Case Physician: Vitaliy Nobles M.D. Start: 08:41 Fellow: [place] M.D. Admission: Bijan Sun M.D. Discharge: 2 Referring Physician: STEVE Graves RN Procedures: * Coronary Angiography * Left Heart Catheterization * Bypass Graft Study * Coronary Ultrasound * Right Heart Catheterization * Oximetry * Coronary Stent Insertion * Arterial Blood Gases History Don Fatima is a 76 year old man. He has hypertension. The patient's smoking status is Former. He has hyperc holesterolemia managed with lipid therapy. The patient has diabetes manag ed by oral medication and insulin. He has a prior history of coronary georgie ry disease. The patient is status post a remote myocardial infarction. He had remote coronary artery bypass surgery. The patient has a history of a n ejection fraction less than or equal to 35%. He has a history of CHF. The CHF is NYHA Functional Class III and is classified as Systolic. He h as a history of atrial fibrillation/atrial flutter. The patien t has a history of peripheral vascular disease. He also has a history of chronic obstructive pulmonary disease. Prior to the initiation of thi s procedure, the patient was designated as ASA Class III. The CSHA c linical frailty scale is 5: Mildly Frail. Diagnostic Tests: Prior Coronary Angiography: Prior coronary angiography was performe d on 07/05/2017 and showed obstructive CAD. LV ejection fraction w ithin 6 months is 35%. Electrocardiography: EKG was assessed by ECG. EKG was Abnorm al. EKG showed ST Deviation >= 0.5 mm and other abnormality. Medications Prior to Procedure: Aspirin, Angiotensin II Receptor Blocke r, Beta Chadwick, Calcium Channel Blocking Agent and Statin. Indications for Diagnostic Cath: The priority of the diagnostic procedur e was Urgent. The indication for the r&d lab technician visit is ACS greater than 24 hrs and cardiomyopathy. Chest pain symptom assessment was: Atypical A ngina. Technique: A 7 SLFr sheath was inserted in the rig ht radial artery utilizing the Seldinger technique. A 5 SLFr sheath wa s inserted in the left radial artery utilizing the Seldinger techniqu e. A 6Fr sheath was inserted in the right median antecubital vein utili zing the Seldinger technique. The left coronary artery was injected utili zing a 5Fr OLLIE RADIAL catheter. A 5Fr OLLIE RADIAL catheter was used to inject the right coronary artery. The mammary artery was injected utilizi ng a 5Fr OSMANI catheter. Left ventricular pressure was performed util izing a 5Fr OLLIE RADIAL catheter. A 5Fr OLLIE RADIAL catheter was used to inject the bypass graft. Coronary stent insertion was performed and the e quipment utilized will be described in the intervention summary s ection. 5,500 units of heparin were administered. A total of 200cc of Omnipaque were opened, 145cc of Omnipaque were administered and 55cc of Omnipaque were wasted. Radiation: Fluoro time was 36.9 minutes, dose area product was 92,500 mGYcm2 and air kerma was 1,231 mGY. See the case log f or additional details. The patient received the following medi cations prior to and during the procedure: Unfractionated Heparin and Clopidogrel. Hemodynamics: Right Heart Pressures Resting: Syst Diast EDP a v m RA 13 12 10 RV 50 17 PA 63 28 38 PCW 27 40 27 Hemodynamic Profile: Profile 1 CO 5.00 CI 2.48 TSR 1,168 SVR 1,008 TPR 608 PVR 176 Technique Estimated Brittanie Left Heart Pressures Resting: Syst Diast EDP a v m Ao 106 52 73 LV 106 30 Oximetry: Location %Sat Location %Sat Right Pulmonary 55.0 Pulmonary Capillar y 97.0 Artery Wedge Coronary Angiography: Dominance: Right Left Main There was a 50% diffuse stenosis of the distal segment of the left main artery. The left main was large. Left Anterior Descending There was severe diffuse (>=75% stenosi s) disease of the proximal segment of the left anterior descending artery (LAD). The LAD was large. Distal flow was via a bypass gra ft. There was a 99% diffuse stenosis of the ostial segment of the first diagonal branch (Diagonal 1) of the LAD . The Diagonal 1 was moderate in size. Left Circumflex There was mild diffuse (<=25% stenosis) disease of the entire vessel segment of the left circumflex artery ( LCX). The ostial segment of the LCX had a calcified single discrete 90% stenosis. There also was a 60% single discrete stenosis of t he mid segment of the LCX. There was moderate diffuse (<=50% steno sis) disease of the mid segment of the first obtuse marginal br anch (OM1) of the LCX. The OM1 was moderate in size. Right Coronary Artery There was mild diffuse (<=25% stenosis) disease of the entire vessel segment of the right coronary artery (R CA). There was a 95% diffuse stenosis of the entire vessel segment of the right posterior descending branch (RPDA ) of the RCA. The RPDA was moderate in size. Bypass Grafts: There was a total of two bypass grafts evaluated during this procedure. 1. Left internal mammary artery graft t o the LAD There was a left internal mammary arter y graft with a single anastomosis to the left anterior descen ding artery (LAD). There was no evidence of obstruction in this graft. Distal flow was normal. 2. Saphenous vein graft to the Diagonal 1/OM1 There was a saphenous vein graft with s equential anastomoses to the first diagonal branch (Diagonal 1) of t he LAD and the first obtuse marginal branch (OM1) of the LCX. There was a single discrete total occlu latonya of the ostial portion of the segment of this graft between the o rigin of this graft and the Diagonal 1. The entire segment of this graft between the Diagonal 1 and the OM1 had mild diffuse (<=25% markie nosis) disease. Intravascular Imaging/Physiology: Intravascular Ultrasound was performed in the ostial LCX using a 7 Fr EBU 3.75 guiding catheter and a 3.5 Fr Eagl e [place] 20 Mhz using Manual pullback. Imaging was successful. Image quality was good. The ostial LCX showed moderate diffuse atheroscler otic plaque with scattered three quadrant calcification. Measurements we re performed after pre-dilation. Post Intervention: The stent was well e xpanded and apposed. Intravascular Ultrasound was performed in the distal LM using a 7 Fr EBU 3.75 guiding catheter and a 3.5 Fr Eagl e [place] 20 Mhz using Manual pullback. Imaging was successful. Image quality was good. The distal LM showed moderate diffuse atherosclero tic plaque. Post Intervention: The stent was well e xpanded and apposed. Indication for Intervention: Coronary intervention was indicated for primary therapy for an acute myocardial infarction. The priority for the procedure was Urgent. The NCDR indication for the procedure was N MARKIE-ACS. LVEF within one week was 35%. Syntax Score was Intermediate. Rig ht Heart catheterization was initiated for Acute on chronic systolic (congestive) heart failure (I50.23). Intervention Summary: Left Circumflex Artery Ostial 90% Stent insertion was performed on the 90 % stenosis in the ostial segment of the LCX. This was a d e fe lesion. According to the ACC/AHA classification system, this lesion was a type C high risk lesion. Primary prevention of restenosis was the indication for stent insertion. A guidewire was placed across this lesion. Vessel f low pre intervention was YULISSA 2. Lesion length was 24mm. Thi s lesion was severely calcified. Stent insertion was accomplished throug h a 7 Fr. EBU 3.75 guide. The lesion was predilated with a 2.75mm NC EUPHORA 15 MM balloon with a maximum inflation pre ssure of 20 atmospheres. A premounted 4.00 x 24 mm Synergy XD (TUCKER) was deployed with a maximum inflation press ure of 24 atmospheres. Following stent deployment, the lesion was dilated using a 5.50mm NC EMERGE 15 MM balloon with a m aximum inflation pressure of 20 atmospheres. The final outcome was defined as succes sful. A coronary arteriolar vasodilator was administered as part of the intervention on this lesion. There was no residual stenosis following this intervention. The final YULISSA flow was 3. PCI of the distal LM and ostial LCX 95% lesion. A successful PCI was performed on the 9 5% lesion in the ostial LCX and 50% distal LM. We used a 7 Fr E BU 3.75 guide. We administered heparin as the anticoagula nt and loaded Prasugrel 60 mg as the antiplatelet agent. We use d a RunThrough wire to cross the lesion into the LCX and used a BMW wire in the LAD. We dilated the lesion using a 2.75 x 15 mm NC balloon to 22 darshan. We performed IVUS which showed the entire LM had a 50% plaque burden and severe calcified dise ase in the LCX. We delivered a large 4.0 x 24 mm Synergy D ES stent in the proximal LCX lesion extending back into the LM ostium and deployed it at 14 darshan jailing the LAD w eric. We then used the stent balloon to post-dilate the LCX pa rt of the stent to 20 darshan pressure. We used an additional 5.5 x 15 mm NC balloon to 24 darshan to post-dilate the LM part of th e vessel. Final IVUS showed well apposed stent and no dissec tions. Following intervention there was 0% residual sten osis. There were no site complications. Vascular Access: Vascular Access Management: Mechanical Compression of the left radi al artery access site was performed. Manual Compression of the right median antecubital vein access site was performed. Mechanical Compression of the right rad ial artery access site was performed. Point of Care Testing: ABG: Arterial Blood gasses were performed us ing the I-Stat analyzer at 09:10: pH: 7.41, pCO2: 40.0, pO2: 63.0, sPO2: 92%, HCO3: 25 on FIO2: 4 L NC. I-Stat: I-Stat was performed using the I-Stat a nalyzer at 09:10: Na+: 143, K+: 3.7, iCa++: 1.07, Hct: 30%, Hb: 10. 2. Dual Antiplatelet (DAPT) Recommendations : Drug eluting stent (TUCKER) inserted. P2Y12 Loading dose Prasugrel 60 mg PO g iven in lab. Recommended anti-platelet/anti-thrombot ic regimen: Continue aspirin 81 mg daily for 7 days then stop. Restart aspirin 81 mg daily in 12 months and continue unless contraindicated. Continue clopidogrel 75 mg daily for 12 months then stop. Continue warfarin to INR of 2.0-2.5 for indefinitely. Custom Protocol: 2 weeks of triple ther apy including aspirin, clopidogrel, and warfarin. Followed by cessation of aspirin and continuing clopidogrel and warfarin onl y for 12 months. Can restart aspirin after 12 months as well as stop ping clopidogrel at that time. These recommendations are made at the t suyapa of the intervention. Patient and provider preferences or a changing clinical situation may require modification of this regimen. Consult D [facility] Interventional Cardiology for questions. The 1 year [...] elizabeth 2.1 08 Dec 2019) Conclusions: * Significant stenosis of the left main * Three vessel coronary artery disease (LAD, LCX and RCA) * Patent left internal mammary artery g raft to the LAD * Obstructive disease of the saphenous vein graft to the Diagonal 1/OM1 * Moderate pulmonary hypertension * Elevated pulmonary capillary wedge pr essure * Elevated left ventricular end diastol ic pressure * Successful stent insertion of the ost ial LCX lesion * See Dual Antiplatelet (DAPT) Recommen dations above Complications/Events: The patient had no complications during these procedures. Comments: SUMMARY AND THERAPEUTIC RECOMMENDATIONS : Don Fatima presents with a NSTEMI, pulmonary edema, a reduction of LVEF with RWMA and mod MR. He was found to have severely elevated LVEDP of 30 mmHg and occlusion of the SVG to the Diag1 to OM1, and severe 95% disease of the ostium of the LCX. Addit ionally she had RPDA with severe 95% multiple tandem lesions with YULISSA 2 flow. Today, we stented the ostial LCX into the LM with a large 4.0 x 24 mm extending from the LCX into the LM, and post-dilated the LM pa rt with a 5.5 mm NC balloon. Following this we noted brisk flow up t he retrograde portion of the sequential graft into the Diag, thus we probably relieved his Diag1 ischemia as well. We will let him recov er from his ADHF and contrast load. We will bring him back for a PCI of the diffusely diseased 95% RPDA in 2-4 weeks. Please continue Aspirin 81 mg daily, Pl avix 75 mg and high intensity statin. He may restart Coumadin. Aspiri n may be discontinued after 2 weeks of triple therapy. Plavix and cou madin continued thereafter. The case was reviewed and discussed wit h the patient and Dr. Cuevas. 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 The attending physician was present for the entire procedure. Dr. Vitaliy Nobles M.D. was present abdoulayein g the moderate sedation intraservice time as documented by the sedation nurs e. Case time = 02:07. Dr. Vitaliy Nobles M.D. performed the cor onary angiography, left heart catheterization, right heart catheteriz ation, oximetry, ABG, stent insertion-coronary, IVUS # coronary and bypass graft study. Vitaliy Nobles M.D. Electronically Signed by: Yoselin Lopez Report Finalized: 12/10/2021 11:55 Report Last Ammended: 01/14/2022 12:09 Vitaliy Nobles MD CARDIAC CATH ORDERABLES Performing Organization Address City/State/ZIP Code Phon e Number CARDIOMAC SYSTEM (ABNORMAL) POCT Glucose (12/10/2021 10:30 AM EDT) athologist Signature POC Glucose 262 (H) 65 - 199 [facility] mg/dL [facility] Comment: Supplemental ranges: <140 mg/dL before meals <180 mg/dL all other times of the day Specimen Anatomical Collection Method Collection Time Receive d Time (Source) Location / / Volume Laterality Blood 12/10/2021 10:30 12/10/2021 AM EDT 10:30 AM EDT Iker Cuevas MD POINT OF CARE TEST ORDERABLE S Performing Organization Address City/[facility]/[place] [address] (ABNORMAL) POCT Glucose (12/10/2021 9:48 AM EDT) athologist Signature POC Glucose 279 (H) 65 - 199 [facility] Comment: Supplemental ranges: <140 mg/dL before meals <180 mg/dL all other times of the day Specimen Anatomical Collection Method Collection Time Receive d Time (Source) Location / / Volume Laterality Blood 12/10/2021 9:48 AM 9:48 EDT AM EDT Iker Cuevas MD POINT OF CARE TEST ORDERABLE S Performing Organization Address City/[facility]/[place] [address] (ABNORMAL) POCT Glucose (12/10/2021 9:07 AM EDT) athologist Signature POC Glucose 268 (H) 65 - 199 [place] mg/dL [facility] Comment: Supplemental ranges: <140 mg/dL before meals <180 mg/dL all other times of the day Specimen Anatomical Collection Method Collection Time Receive d Time (Source) Location / / Volume Laterality Blood 12/10/2021 9:07 AM 2 9:07 EDT AM EDT Iker Cuevas MD POINT OF CARE TEST ORDERABLE S Performing Organization Address City/State/[place] [address] (ABNORMAL) Point of Care Blood Gas Historical (12/10/2021 9:04 AM EDT) Patholo gist Method Time Signature POC pH 7.40 7.35 - [facility] 7.45 [facility] POC PCO2 40 35 - 45 [facility] mmHg [facility] POC PO2 63 (L) 85 - 104 [facility] LABORATORY POC Base Excess 0.0 -3.0 - 3.0 [facility] K mmol/L [facility] POC HCO3 24.8 20.0 - [facility] 26.0 [facility] Sodium 143 135 - 145 [facility] mmol/L [facility] POC Potassium 3.7 3.5 - 5.0 [facility] mmol/L [facility] POC Ionized Ca 1.07 (L) 1.15 - [facility] 1.33 [facility] POC Hematocrit 30.0 (L) 40.0 - [facility] 51.0 % [facility] POC Calc Hgb 10.2 (L) 13.7 - [facility] 17.5 g/dL [facility] Comment: The calculation of hemoglobin f rom hematocrit assumes a normal MCHC. POC Bgas Loc CC LAB [facility] Specimen Anatomical Collection Method Collection Time Receive d Time (Source) Location / / Volume Laterality Blood 12/10/2021 9:04 AM 2 EDT 12:00 PM EDT Ifeanyi Truong MD CHEMISTRY ORDERABLES Performing Organization Address City/State/ZIP Code Phon e Number [place] [phone] (ABNORMAL) POCT Glucose (12/10/2021 7:19 AM EDT) P athologist Signature POC Glucose 274 (H) 65 - 199 [facility] mg/dL [facility] Comment: Supplemental ranges: <140 mg/dL before meals <180 mg/dL all other times of the day Specimen Anatomical Collection Method Collection Time Receive d Time (Source) Location / / Volume Laterality Blood 12/10/2021 7:19 AM 2 7:19 EDT AM EDT Iker Cuevas MD POINT OF CARE TEST ORDERABLE S Performing Organization Address City/[facility]/ZIP Code Phon e Number [address] Heparin (unfractionated) Level (12/10/2021 4:25 AM EDT) P athologist Signature Heparin UFH 0.69 IU/mL [facility] Comment: Heparin (anti-Xa) levels should be [...] / Volume Laterality Blood 12/10/2021 4:25 AM 2 4:34 EDT AM EDT Resulting Agency Comment Spec In Lab Iker Cuevas MD HEMATOLOGY ORDERABLES Performing Organization Address City/[facility]/ZIP Code Phon e Number [address] (ABNORMAL) Differential, Automated (12/10/2021 4:25 AM EDT) Patholo gist Method Time Signature Neutrophils % 79.8 % [facility] Neutr Abs (ANC) 7.47 (H) 1.70 - [facility] 6.10 [facility] x10(3)/[facility] L LABORATORY Lymphocytes % 10.6 % [facility] Lymphocytes Abs 1.0 0.9 - 3.2 [facility] x10(3)/[facility] LABORATORY Monocytes % 8.4 % [facility] Monocyte Abs 0.8 0.3 - 0.9 [facility] x10(3)/[facility] LABORATORY Eosinophils % 0.6 % [facility] Eosinophils Abs 0.1 0.0 - 0.4 [facility] x10(3)/[facility] LABORATORY Basophils % 0.2 % [facility] Basophils Abs 0.0 0.0 - 0.1 [facility] x10(3)/[facility] LABORATORY Immature Gran % 0.40 % [facility] Comment: Immature granulocytes(IG's)percentage an d absolute count will include metamyelocytes, myelocytes, and promyelo cytes. Blood smears from CBCs yielding IG's will be scanned manually for concor dance. If this scan disagrees with the automated IG or if promyelocytes are not ed, a manual differential will be performed. Melisa Gran Abs 0.04 0.00 - 0.04 x10(3)/[facility] Specimen Anatomical Collection Method Collection Time Receive d Time (Source) Location / / Volume Laterality Blood 12/10/2021 4:25 AM 2 4:34 EDT AM EDT Resulting Agency Comment Spec In Lab Morgan BROWN HEMATOLOGY ORDERABLES Performing Organization Address City/State/[place] [address] (ABNORMAL) Hemogram (12/10/2021 4:25 AM EDT) Analysis Performed At Patho logist Time Signature WBC 9.4 4.0 - 9.5 [facility] x10(3)/[facility] LABORATORY RBC 3.81 (L) 4.58 - [facility] 5.54 [facility] x10(6)/[facility] LABORATORY Hemoglobin 11.1 (L) 13.7 - [facility] 16.5 g/dL [facility] Hematocrit 34.0 (L) 40.5 - [facility] 48.5 % [facility] MCV 89.2 82.9 - [facility] 93.1 [facility] LABORATORY MCH 29.1 27.5 - [facility] 32.1 pg [facility] MCHC 32.6 32.0 - [facility] 35.7 g/dL [facility] Platelets 183 145 - 357 [facility] x10(3)/[facility] LABORATORY RDWSD 49.9 (H) 36.0 - [facility] 45.0 [facility] LABORATORY RDWCV 15.2 (H) 11.4 - [facility] 13.8 % [facility] MPV 9.8 7.6 - 12.9 [facility] LABORATORY nRBC % Auto 0.0 % [facility] nRBC Abs Auto 0.000 0.000 - [facility] 0.000 [facility] x10(3)/[facility] LABORATORY Specimen Anatomical Collection Method Collection Time Receive d Time (Source) Location / / Volume Laterality Blood 12/10/2021 4:25 AM 2 4:34 EDT AM EDT Resulting Agency Comment Spec In Lab Morgan BROWN HEMATOLOGY ORDERABLES Performing Organization Address City/State/ZIP Code Phon e Number [place] [phone] (ABNORMAL) Prothrombin Time (12/10/2021 4:25 AM EDT) P athologist Signature PT 20.0 (H) 9.4 - 12.5 [facility] LABORATORY INR 1.7 [facility] Comment: An INR <2.0 indicates [...] / Volume Laterality Blood 12/10/2021 4:25 AM 2 4:34 EDT AM EDT Resulting Agency Comment Spec In Lab Iker Cuevas MD HEMATOLOGY ORDERABLES Performing Organization Address City/State/[place] [address] (ABNORMAL) BMP w/fasting Glucose (12/10/2021 4:25 AM EDT) athologist Signature Glucose 210 (H) 65 - 99 [facility] Fasting mg/dL [facility] Comment: ?Fasting* Glucose Interpretive C riteria [...] of Diabetes Mellitus, Position Statement from the [place] [employer]. ??Diabete s Care, Volume 33, Supplement 1, Jul 2009 BUN 54 (H) 10 - 20 mg/dL [facility] Creatinine 1.52 (H) 0.80 - 1.50 mg/dL [facility] Sodium 140 135 - 145 mmol/L [facility] Potassium 3.9 3.5 - 5.0 mmol/L [facility] Comment: Please note: ??Patients with WBC >100,00 0 may have falsely elevated Potassium levels. ??For accurate Potassium quantif ication in these patients send serum separator tube (gold top) for subsequent determinations. ??Contact the Clinical Chemistry Laboratory if there are any qu estions. Chloride 104 98 - 107 mmol/L [facility] CO2 23 22 - 31 mmol/L [facility] Anion Gap 13 5 - 15 mmol/L [facility] Calcium 8.0 (L) 8.5 - 10.5 mg/dL [facility] Estimated GFR 44 (L) >=60 mL/min/1.73 m?? [facility] Comment: This patient? s estimated glomerular filtration rate (eGFR) is between 44 mL/min/1.73 m2 (patients with less muscl e mass per kg body weight) and 51 mL/min/1.73 m2 (patients with more muscl e [...] / Volume Laterality Blood 12/10/2021 4:25 AM 2 4:34 EDT AM EDT Resulting Agency Comment Spec In Lab Iker Cuevas MD CHEMISTRY ORDERABLES Performing Organization Address City/State/ZIP Code Phon e Number [address] Magnesium (12/10/2021 4:25 AM EDT) P athologist Signature Magnesium 0.95 0.69 - 1.07 [facility] mmol/L [facility] Specimen Anatomical Collection Method Collection Time Receive d Time (Source) Location / / Volume Laterality Blood 12/10/2021 4:25 AM 2 4:34 EDT AM EDT Resulting Agency Comment Spec In Lab Iker Cuevas MD CHEMISTRY ORDERABLES Performing Organization Address City/State/ZIP Code Phon e Number [address] POCT Glucose (12/10/2021 1:58 AM EDT) P athologist Signature POC Glucose 164 65 - 199 [facility] mg/dL [facility] Comment: Supplemental ranges: <140 mg/dL before meals <180 mg/dL all other times of the day Specimen Anatomical Collection Method Collection Time Receive d Time (Source) Location / / Volume Laterality Blood 12/10/2021 1:58 AM 2 1:58 EDT AM EDT Iker Cuevas MD POINT OF CARE TEST ORDERABLE S Performing Organization Address City/[facility]/[place] [address] (ABNORMAL) POCT Glucose (12/09/2021 9:02 PM EDT) athologist Signature POC Glucose 313 (H) 65 - 199 [facility] mg/dL [facility] Comment: Supplemental ranges: <140 mg/dL before meals <180 mg/dL all other times of the day Specimen Anatomical Collection Method Collection Time Receive d Time (Source) Location / / Volume Laterality Blood 12/09/2021 9:02 PM 2 9:02 EDT PM EDT Iker Cuevas MD POINT OF CARE TEST ORDERABLE S Performing Organization Address City/[facility]/ZIP Code Phon e Number [place] [phone] Heparin (unfractionated) Level (12/09/2021 7:30 PM EDT) athologist Signature Heparin UFH 0.48 IU/mL [facility] Comment: Heparin (anti-Xa) levels should be [...] Location / / Volume Laterality Blood 12/09/2021 7:30 PM 7:42 EDT PM EDT Resulting Agency Comment Spec In Lab Iker Cuevas MD HEMATOLOGY ORDERABLES Performing Organization Address City/State/[place] [address] (ABNORMAL) Basic Metabolic Panel (non-fasting) (12/09/2021 7:30 PM EDT) P athologist Signature Glucose Lvl 372 (H) 65 - 199 [facility] mg/dL [facility] Comment: Diabetes: >=200 mg/dL plus symp toms BUN 56 (H) 10 - 20 mg/dL [facility] Creatinine 1.75 (H) 0.80 - 1.50 mg/dL [facility] Sodium 138 135 - 145 mmol/L [facility] Potassium 4.2 3.5 - 5.0 mmol/L [facility] Comment: Please note: ??Patients with WBC >100,00 0 may have falsely elevated Potassium levels. ??For accurate Potassium quantif ication in these patients send serum separator tube (gold top) for subsequent determinations. ??Contact the Clinical Chemistry Laboratory if there are any qu estions. Chloride 102 98 - 107 mmol/L [facility] CO2 22 22 - 31 mmol/L [facility] Anion Gap 14 5 - 15 mmol/L [facility] Calcium 8.1 (L) 8.5 - 10.5 mg/dL [facility] Estimated GFR 37 (L) >=60 mL/min/1.73 m?? [facility] Comment: This patient? s estimated glomerular filtration rate (eGFR) is between 37 mL/min/1.73 m2 (patients with less muscl e mass per kg body weight) and 43 mL/min/1.73 m2 (patients with more muscl e [...] Location / / Volume Laterality Blood 12/09/2021 7:30 PM 2 7:42 EDT PM EDT Resulting Agency Comment Spec In Lab Iker Cuevas MD CHEMISTRY ORDERABLES Performing Organization Address City/State/[place] [address] (ABNORMAL) POCT Glucose (12/09/2021 6:34 PM EDT) athologist Signature POC Glucose 408 (H) 65 - 199 [facility] Comment: Supplemental ranges: <140 mg/dL before meals <180 mg/dL all other times of the day Specimen Anatomical Collection Method Collection Time Receive d Time (Source) Location / / Volume Laterality Blood 12/09/2021 6:34 PM 2 6:34 EDT PM EDT Iker Cuevas MD POINT OF CARE TEST ORDERABLE S Performing Organization Address City/State/[place] [address] (ABNORMAL) POCT Glucose (12/09/2021 6:32 PM EDT) athologist Signature POC Glucose 356 (H) 65 - 199 [facility] Comment: Supplemental ranges: <140 mg/dL before meals <180 mg/dL all other times of the day Specimen Anatomical Collection Method Collection Time Receive d Time (Source) Location / / Volume Laterality Blood 12/09/2021 6:32 PM 2 6:32 EDT PM EDT Iker Cuevas MD POINT OF CARE TEST ORDERABLE S Performing Organization Address City/State/[place] [address] (ABNORMAL) POCT Glucose (12/09/2021 4:19 PM EDT) athologist Signature POC Glucose 347 (H) 65 - 199 [facility] mg/dL [facility] Comment: Supplemental ranges: <140 mg/dL before meals <180 mg/dL all other times of the day Specimen Anatomical Collection Method Collection Time Receive d Time (Source) Location / / Volume Laterality Blood 12/09/2021 4:19 PM 2 4:19 EDT PM EDT Iker Cuevas MD POINT OF CARE TEST ORDERABLE S Performing Organization Address City/State/[place] [address] Heparin (unfractionated) Level (12/09/2021 1:29 PM EDT) athologist [facility] Heparin UFH 0.42 IU/mL [facility]ATORY Comment: Heparin (anti-Xa) levels should be [...] Location / / Volume Laterality Blood 12/09/2021 1:29 PM 2 1:36 EDT PM EDT Resulting Agency Comment Spec In Lab Iker Cuevas MD HEMATOLOGY ORDERABLES Performing Organization Address City/State/[place] [address] (ABNORMAL) POCT Glucose (12/09/2021 12:02 PM EDT) athologist Signature POC Glucose 235 (H) 65 - 199 [facility] mg/dL [facility] Comment: Supplemental ranges: <140 mg/dL before meals <180 mg/dL all other times of the day Specimen Anatomical Collection Method Collection Time Receive d Time (Source) Location / / Volume Laterality Blood 12/09/2021 12:02 12/09/2021 PM EDT 12:02 PM EDT kIer Cuevas MD POINT OF CARE TEST ORDERABLE S Performing Organization Address City/[facility]/[place] [address] (ABNORMAL) POCT Glucose (12/09/2021 9:44 AM EDT) athologist Signature POC Glucose 214 (H) 65 - 199 [facility] mg/dL [facility] Comment: Supplemental ranges: <140 mg/dL before meals <180 mg/dL all other times of the day Specimen Anatomical Collection Method Collection Time Receive d Time (Source) Location / / Volume Laterality Blood 12/09/2021 9:44 AM 9:44 EDT AM EDT Iker Cuevas MD POINT OF CARE TEST ORDERABLE S Performing Organization Address City/[facility]/[place] [address] EKG 12 Lead (12/09/2021 7:57 AM EDT) Component Value Ref Range Test Analysis Performed Pathologis t Method Time At Signature Ventricular rate 101 BPM MUSE SYSTEM Atrial Rate 101 BPM MUSE SYSTEM P-R Interval 150 ms MUSE SYSTEM QRS Duration 112 ms MUSE SYSTEM Q-T Interval 364 ms MUSE SYSTEM QTC Calculated 471 ms MUSE SYSTEM (Bezet) Calculated P Purdum 59 degrees MUSE SYSTEM Calculated R Purdum -42 degrees MUSE SYSTEM Calculated T Purdum 102 degrees MUSE SYSTEM INTERPRETATION Sinus tachycardia Occasional Premature ventricular com plexes MUSE SYSTEM Left axis deviation 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) Abnormal ECG When compared with ECG of 08-DEC-2021 16:40, Premature ventricular complexes are now Present Confirmed by MD Fernandez Danette ([id number]) on 12/10/2021 4:55:06 PM Specimen Anatomical Collection Method Collection Time Receive d Time (Source) Location / / Volume Laterality 12/09/2021 7:57 AM 4:55 EDT PM EDT Iker Cuevas MD ECG ORDERABLES Performing Organization Address City/State/ZIP Code Phon e Number MUSE SYSTEM (ABNORMAL) POCT Glucose (12/09/2021 7:28 AM EDT) P athologist Signature POC Glucose 263 (H) 65 - 199 [facility] Comment: Supplemental ranges: <140 mg/dL before meals <180 mg/dL all other times of the day Specimen Anatomical Collection Method Collection Time Receive d Time (Source) Location / / Volume Laterality Blood 12/09/2021 7:28 AM 7:28 EDT AM EDT Iker Cuevas MD POINT OF CARE TEST ORDERABLE S Performing Organization Address City/State/[place] [address] (ABNORMAL) Hemoglobin A1c (12/09/2021 6:18 AM EDT) Analysis Performed At Patho logist Time Signature Hemoglobin A1C 7.4 (H) 4.3 - 5.6 [facility] Comment: Reference Range: 4.3 - 5.6% [...] Mellitus, Diabetes Care 2013; 36: Suppl. 1, S67-82 Est Avg Gluc See note mg/dL [facility] Comment: Estimated Average Glucose [...] with hemoglobinopathies. Additional resources are available on [facility] ADA website. Macario HAMMOND, Ruthann J, Deysi R, et al. ??Tr anslating the A1C assay into estimated average glucose values. ??Diabetes Care 2008:31(8):2145-7685. Specimen Anatomical Collection Method Collection Time Receive d Time (Source) Location / / Volume Laterality Blood Venous Draw / 12/09/2021 6:18 AM 12/10/19 22 Unknown EDT 12:24 PM EDT Resulting Agency Comment Spec In Lab Migdalia BROWN CHEMISTRY ORDERABLES Performing Organization Address City/[facility] [place] [address] (ABNORMAL) Prothrombin Time (12/09/2021 6:18 AM EDT) P athologist Signature PT 26.6 (H) 9.4 - 12.5 [facility] LABORATORY INR 2.3 [facility] [facility] Comment: An INR <2.0 indicates [...] Venous Draw / 12/09/2021 6:18 AM 12/10/19 6:33 Unknown EDT AM EDT Resulting Agency Comment Spec In Lab Migdalia BROWN HEMATOLOGY ORDERABLES Performing Organization Address [facility]/[place] [address] Heparin (unfractionated) Level (12/09/2021 6:18 AM EDT) P athologist Signature Heparin UFH 0.24 IU/mL [facility] LABORATORY Comment: Heparin (anti-Xa) levels should be [...] Cuevas MD HEMATOLOGY ORDERABLES Performing Organization Address City/[facility]/ZIP Code Phon e Number [address] (ABNORMAL) Differential, Automated (12/09/2021 6:18 AM EDT) Patholo gist Method Time Signature Neutrophils % 91.5 % [facility] LABORATORY Neutr Abs (ANC) 15.78 (H) 1.70 - [facility] 6.10 [facility] x10(3)/[facility] L LABORATORY Lymphocytes % 2.9 % [facility] LABORATORY Lymphocytes Abs 0.5 (L) 0.9 - 3.2 [facility] x10(3)/[facility] LABORATORY Monocytes % 4.9 % [facility] LABORATORY Monocyte Abs 0.8 0.3 - 0.9 [facility] x10(3)/[facility] LABORATORY Eosinophils % 0.0 % [facility] LABORATORY Eosinophils Abs 0.0 0.0 - 0.4 [facility] x10(3)/[facility] LABORATORY Basophils % 0.2 % [facility] LABORATORY Basophils Abs 0.0 0.0 - 0.1 [facility] x10(3)/[facility] LABORATORY Immature Gran % 0.50 % [facility] LABORATORY Comment: Immature granulocytes(IG's)percentage an d absolute count will include metamyelocytes, myelocytes, and promyelo cytes. Blood smears from CBCs yielding IG's will be scanned manually for concor dance. If this scan disagrees with the automated IG or if promyelocytes are not ed, a manual differential will be performed. Melisa Gran Abs 0.09 (H) 0.00 - 0.04 x10(3)/[facility] LABORATORY Specimen Anatomical Collection Method Collection Time Receive d Time (Source) Location / / Volume Laterality Blood 12/09/2021 6:18 AM 6:33 EDT AM EDT Resulting Agency Comment Spec In Lab Morgan BROWN HEMATOLOGY ORDERABLES Performing Organization Address City/State/[place] [address] (ABNORMAL) Hemogram (12/09/2021 6:18 AM EDT) Analysis Performed At Patho logist Time Signature WBC 17.2 (H) 4.0 - 9.5 [facility] x10(3)/[facility] LABORATORY RBC 4.32 (L) 4.58 - [facility] 5.54 [facility] x10(6)/[facility] LABORATORY Hemoglobin 12.6 (L) 13.7 - [facility] 16.5 g/dL [facility] LABORATORY Hematocrit 38.9 (L) 40.5 - [facility] 48.5 % [facility] LABORATORY MCV 90.0 82.9 - [facility] 93.1 fL [facility] LABORATORY MCH 29.2 27.5 - [facility] 32.1 pg [facility]ORY MCHC 32.4 32.0 - [facility] 35.7 g/dL [facility] LABORATORY Platelets 193 145 - 357 [facility] x10(3)/[facility] LABORATORY RDWSD 50.4 (H) 36.0 - [facility] 45.0 [facility] LABORATORY RDWCV 15.2 (H) 11.4 - [facility] 13.8 % [facility] LABORATORY MPV 9.5 7.6 - 12.9 [facility] LABORATORY nRBC % Auto 0.0 % [facility] LABORATORY nRBC Abs Auto 0.000 0.000 - [facility] 0.000 [facility] x10(3)/[facility] LABORATORY Specimen Anatomical Collection Method Collection Time Receive d Time (Source) Location / / Volume Laterality Blood 12/09/2021 6:18 AM 6:33 EDT AM EDT Resulting Agency Comment Spec In Lab Morgan BROWN HEMATOLOGY ORDERABLES Performing Organization Address City/State/[place] [address] Lipid Panel (Reflex Direct LDL) (12/09/2021 6:18 AM EDT) P athologist Signature Chol, Total 105 mg/dL [facility]ORATORY Comment: Lower Risk: <200 mg/dL Average Risk: 200-239 mg/dL Higher Risk: >gq=505 mg/dL Triglycerides 133 mg/dL [facility] LABORATORY Comment: Average Risk/Lower Risk: <150 mg/dL Borderline High Risk: 150-199 mg/dL High Risk: 200-499 mg/dL Very High Risk: >pf=726 mg/dL HDL 42 mg/dL [facility] LAB[facility] Comment: Males: ?? Higher Risk: <40 mg/dL Females: ?? Higher Risk: <50 mg/dL LDL Cholesterol 36 mg/dL [facility] Comment: Lowest Risk: <100 mg/dL Lower Risk: 100-129 mg/dL Borderline High Risk: 130-159 mg/dL High Risk: 160-189 mg/dL Very High Risk: >ed=600 mg/dL Chol/HDL Ratio 2.5 ratio [facility] LABORATORY Lipid Interpretation See Note [facility] LABORATORY Comment: Lipid management should be guided by a p atient? s ASCVD risk, goals and preferences. ACC/AHA Guidelines recommend high intens ity statin if clinical ASCVD or LDL greater than or equal to 190 mg/dL. [email or web address] Adults aged 40-75 with LDL 70-189 mg/dL should have their 10 year ASCVD risk estimated with the ACC/AHA ASCVD risk es timator http://tools.acc.org/HGRAA-Posf-Zvctorrt r/ Statin should be discussed if risk [...] Organization Address City/State/[place] [address] TSH (12/09/2021 6:18 AM EDT) P athologist Signature TSH 1.60 0.27 - 4.20 [facility] SU mcIU/mL [facility] Comment: Reference Interval (mcIU/mL): Females: ??First Trimester: 0.23-3.88 ??Second Trimester: 0.22-3.90 ??Third Trimester: 0.44-4.66 Specimen Anatomical Collection Method Collection Time Receive d Time (Source) Location / / Volume Laterality Blood 12/09/2021 6:18 AM 2 6:33 EDT AM EDT Resulting Agency Comment Spec In Lab Iker Cuevas MD CHEMISTRY ORDERABLES Performing Organization Address City/State/[place] [address] Hepatic Function Panel (12/09/2021 6:18 AM EDT) athologist Signature Total Protein 7.3 6.1 - 8.0 [facility] g/dL [facility] Albumin 4.2 3.2 - 5.2 [facility] g/dL [facility] AST 25 0 - 39 [facility] unit/L [facility] ALT 15 0 - 55 [facility] unit/L [facility] Alk Phos 75 40 - 130 [facility] SU unit/L [facility] Total 1.1 0.2 - 1.3 [facility] Bil[facility] mg/dL [facility] Bili, Direct 0.2 0.0 - 0.3 [facility] mg/dL [facility] Specimen Anatomical Collection Method Collection Time Receive d Time (Source) Location / / Volume Laterality Blood 12/09/2021 6:18 AM 6:33 EDT AM EDT Resulting Agency Comment Spec In Lab Iker Cuevas MD CHEMISTRY ORDERABLES Performing Organization Address City/State/[place] [address] (ABNORMAL) BMP w/fasting Glucose (12/09/2021 6:18 AM EDT) athologist Signature Glucose 235 (H) 65 - 99 [facility] Fasting mg/dL [facility] Comment: ?Fasting* Glucose Interpretive C riteria Normal ?65-99 mg/dL Impaired Fasting glucose ?100-125 mg/dL Consistent with Diabetes Mellitus ? >or= 126 mg/dL *Fasting is defined as no caloric intake for at least 8 hours In the absence of unequivocal hypergly cemia a plasma glucose value of >or= 126 mg/dL should be repeated on a subseq u day. Diagnosis and Classification of Diabetes Mellitus, Position Statement from the [place] [employer]. ??Diabete s Care, Volume 33, Supplement 1, Jul 2009 BUN 49 (H) 10 - 20 mg/dL [facility] Creatinine 1.33 0.80 - 1.50 mg/dL [facility] Sodium 139 135 - 145 mmol/L [facility] Potassium 4.2 3.5 - 5.0 mmol/L [facility] LAB[facility]ORY Comment: Please note: ??Patients with WBC >100,00 0 may have falsely elevated Potassium levels. ??For accurate Potassium quantif ication in these patients send serum separator tube (gold top) for subsequent determinations. ??Contact the Clinical Chemistry Laboratory if there are any qu estions. Chloride 101 98 - 107 mmol/L [facility] CO2 21 (L) 22 - 31 mmol/L [facility] Anion Gap 17 (H) 5 - 15 mmol/L [facility] Calcium 8.8 8.5 - 10.5 mg/dL [facility]OR[facility]ORY Estimated GFR 52 (L) >=60 mL/min/1.73 m?? [facility] Comment: This patient? s estimated glomerular filtration rate (eGFR) is between 52 mL/min/1.73 m2 (patients with less muscl e mass per kg body weight) and 60 mL/min/1.73 m2 (patients with more muscl e [...] Organization Address City/State/[place] [address] Magnesium (12/09/2021 6:18 AM EDT) athologist Signature Magnesium 0.81 0.69 - 1.07 [facility] mmol/L [facility]ORY Specimen Anatomical Collection Method Collection Time Receive d Time (Source) Location / / Volume Laterality Blood 12/09/2021 6:18 AM 2 6:33 EDT AM EDT Resulting Agency Comment Spec In Lab Iker Cuevas MD CHEMISTRY ORDERABLES Performing Organization Address City/State/ZIP Code Phon e Number [facility] [address] (ABNORMAL) Troponin (12/09/2021 6:18 AM EDT) athologist Signature Troponin-T 1.13 (H) 0.00 - [facility] 0.00 ng/mL [facility] Comment: The 99th percentile for Troponin T is le ss than 0.01 ng/mL, any detectable cTnT concentration using this assay should be considered elevated. According to the third universal definit ion of myocardial infarction the following criteria with a clinical prese ntation consistent with acute myocardial ischemia meets the diagnosis for a myocardial infarction ([place]). Detection of a rise and/or fall of [...] additional sample may be indicated. Reference: Third [place] Definition of Myocardial Infarction. Journal of the [place] [employer] 2012;60:1581-98 Specimen Anatomical Collection Method Collection Time Receive d Time (Source) Location / / Volume Laterality Blood 12/09/2021 6:18 AM 6:33 EDT AM EDT Resulting Agency Comment Spec In Lab Iker Cuevas MD CHEMISTRY ORDERABLES Performing Organization Address City/State/ZIP [place] [address] XR Chest One View [...] who have questions please contact the health attending ambulatory care that requested your imaging first. ? Narrative 12/09/2021 5:35 AM EDT EXAMINATION: XR [...] ho have questions please contact the health attending ambulatory care that requested your imaging first. Amber Sanches MD IMG DX ORDERABLES (ABNORMAL) BLOOD GAS 2 ARTERIAL (12/09/2021 5:14 AM EDT) Analysis Performed At Patho logist Time Signature pH Art 7.43 7.35 - [facility] 7.45 [facility] LAB[facility]ORY pCO2 Art 36 35 - 45 [facility] mmHg [facility] pO2 Art 67 (L) 85 - 104 [facility] mmHg [facility] HCO3 Art 23.4 20.0 - [facility] 26.0 [facility] mmol/L [facility] BE Art -0.9 -3.0 - 3.0 [facility] mmol/L [facility] Hgb Blood Gas 13.2 (L) 13.7 - [facility] 16.5 g/dL [facility] LAB[facility]ORY O2HB Art 91.3 (L) 94.0 - [facility] 97.0 % [facility]ORY COHB Art 0.4 % [facility] Comment: Nonsmokers: 0.5-1.5% COHB Smokers: Variable, but usually less than 10% Toxic: 20-30% COHB Lethal: Greater than 60% COHB METHB Art 0.4 <=1.5 % [facility] Na Whole Blood 138 135 - 145 mmol/L [facility] K Whole Blood 4.1 3.5 - 5.0 mmol/L [facility] Comment: Please note: Patients with WBC >100,000 may have falsely elevated Potassium levels. Contact the Clinical Chemistry L aboratory if there are any questions. ICa Whole Blood 1.09 (L) 1.15 - 1.33 mmol/L [facility]ORY Comment: Note: ??Total bilirubin higher than 20 m g/dL may lead to falsely low ionized calcium. CL Whole Blood 104 98 - 107 mmol/L [facility] Gluc Whole Bld 223 (H) 65 - 199 mg/dL [facility] Comment: Diabetes: >=200 mg/dL plus symp toms. Lactate WB 2.7 (H) 0.5 - 2.2 mmol/L [facility] FIO2 Art 35 % [facility] Flow Art 8.[address] [facility] PF Ratio Art 191 [facility] LABORATORY Specimen Anatomical Collection Method Collection Time Receive d Time (Source) Location / / Volume Laterality Blood 12/09/2021 5:14 AM 2 5:14 EDT AM EDT Iker Cuevas MD CHEMISTRY ORDERABLES Performing Organization Address City/[facility]/[place] [address] POCT Glucose (12/09/2021 4:46 AM EDT) P athologist Signature POC Glucose 198 65 - 199 [facility] mg/dL [facility] Comment: Supplemental ranges: <140 mg/dL before meals <180 mg/dL all other times of the day Specimen Anatomical Collection Method Collection Time Receive d Time (Source) Location / / Volume Laterality Blood 12/09/2021 4:46 AM 2 4:46 EDT AM EDT Iker Cuevas MD POINT OF CARE TEST ORDERABLE S Performing Organization Address City/State/[place] [address] (ABNORMAL) POCT Glucose (12/09/2021 3:01 AM EDT) athologist Signature POC Glucose 225 (H) 65 - 199 [facility] mg/dL [facility] Comment: Supplemental ranges: <140 mg/dL before meals <180 mg/dL all other times of the day Specimen Anatomical Collection Method Collection Time Receive d Time (Source) Location / / Volume Laterality Blood 12/09/2021 3:01 AM 3:01 EDT AM EDT Iker Cuevas MD POINT OF CARE TEST ORDERABLE S Performing Organization Address City/State/ZIP Code Phon e Number [address] (ABNORMAL) POCT Glucose (12/08/2021 10:55 PM EDT) athologist Signature POC Glucose 327 (H) 65 - 199 [facility] mg/dL [facility] Comment: Supplemental ranges: <140 mg/dL before meals <180 mg/dL all other times of the day Specimen Anatomical Collection Method Collection Time Receive d Time (Source) Location / / Volume Laterality Blood 12/08/2021 10:55 12/08/2021 PM EDT 10:55 PM EDT Iker Cuevas MD POINT OF CARE TEST ORDERABLE S Performing Organization Address City/State/[place] [address] Heparin (unfractionated) Level (12/08/2021 10:03 PM EDT) athologist Signature Heparin UFH 0.18 IU/mL [facility] LABORATORY Comment: Heparin (anti-Xa) levels should be [...] (Source) Location / / Volume Laterality Blood 12/08/2021 10:03 12/08/2021 PM EDT 10:16 PM EDT Resulting Agency Comment Spec In Lab Iker Cuevas MD HEMATOLOGY ORDERABLES Performing Organization Address City/State/[place] [address] (ABNORMAL) Troponin (12/08/2021 10:03 PM EDT) athologist Signature Troponin-T 0.92 (H) 0.00 - [facility] 0.00 ng/mL [facility] Comment: The 99th percentile for Troponin T is le ss than 0.01 ng/mL, any detectable cTnT concentration using this assay should be considered elevated. According to the third universal definit ion of myocardial infarction the following criteria with a clinical prese ntation consistent with acute myocardial ischemia meets the diagnosis for a myocardial infarction ([place]). Detection of a rise and/or fall of [...] additional sample may be indicated. Reference: Third [place] Definition of Myocardial Infarction. Journal of the [place] [employer] 2012;60:1581-98 Specimen Anatomical Collection Method Collection Time Receive d Time (Source) Location / / Volume Laterality Blood 12/08/2021 10:03 12/08/2021 PM EDT 10:31 PM EDT Resulting Agency Comment Spec In Lab Iker Cuevas MD CHEMISTRY ORDERABLES Performing Organization Address City/[facility]/[place] [address] (ABNORMAL) POCT Glucose (12/08/2021 8:22 PM EDT) P athologist Signature POC Glucose 429 (H) 65 - 199 [facility] Comment: Supplemental ranges: <140 mg/dL before meals <180 mg/dL all other times of the day Specimen Anatomical Collection Method Collection Time Receive d Time (Source) Location / / Volume Laterality Blood 12/08/2021 8:22 PM 2 8:22 EDT PM EDT Iker Cuevas MD POINT OF CARE TEST ORDERABLE S Performing Organization Address [facility]/[place] [address] (ABNORMAL) POCT Glucose (12/08/2021 7:06 PM EDT) athologist Signature POC Glucose 442 (H) 65 - 199 [facility] mg/dL [facility] Comment: Supplemental ranges: <140 mg/dL before meals <180 mg/dL all other times of the day Specimen Anatomical Collection Method Collection Time Receive d Time (Source) Location / / Volume Laterality Blood 12/08/2021 7:06 PM 2 7:06 EDT PM EDT Iker Cuevas MD POINT OF CARE TEST ORDERABLE S Performing Organization Address City/[facility]/[place] [address] Magnesium (12/08/2021 6:02 PM EDT) P athologist Signature Magnesium 0.86 0.69 - 1.07 [facility]/L [facility] Specimen Anatomical Collection Method Collection Time Receive d Time (Source) Location / / Volume Laterality Blood 12/08/2021 6:02 PM 2 6:36 EDT PM EDT Resulting Agency Comment Spec In Lab Iker Cuevas MD CHEMISTRY ORDERABLES Performing Organization Address City/State/[place] [address] (ABNORMAL) Basic Metabolic Panel (non-fasting) (12/08/2021 6:02 PM EDT) P athologist Signature Glucose Lvl 392 (H) 65 - 199 [facility] mg/dL [facility] Comment: Diabetes: >=200 mg/dL plus symp toms BUN 41 (H) 10 - 20 mg/dL [facility] Creatinine 1.44 0.80 - 1.50 mg/dL [facility] Sodium 138 135 - 145 mmol/L [facility] Potassium 4.5 3.5 - 5.0 mmol/L [facility] Comment: Please note: ??Patients with WBC >100,00 0 may have falsely elevated Potassium levels. ??For accurate Potassium quantif ication in these patients send serum separator tube (gold top) for subsequent determinations. ??Contact the Clinical Chemistry Laboratory if there are any qu estions. Chloride 102 98 - 107 mmol/L [facility] CO2 20 (L) 22 - 31 mmol/L [facility] Anion Gap 16 (H) 5 - 15 mmol/L [facility] Calcium 8.6 8.5 - 10.5 mg/dL [facility] Estimated GFR 47 (L) >=60 mL/min/1.73 m?? [facility] Comment: This patient? s estimated glomerular filtration rate (eGFR) is between 47 mL/min/1.73 m2 (patients with less muscl e mass per kg body weight) and 55 mL/min/1.73 m2 (patients with more muscl e [...] (Source) Location / / Volume Laterality Blood 12/08/2021 6:02 PM 6:36 EDT PM EDT Resulting Agency Comment Spec In Lab Iker Cuevas MD CHEMISTRY ORDERABLES Performing Organization Address City/State/[place] [address] (ABNORMAL) Differential, Automated (12/08/2021 6:02 PM EDT) [facility] gist Method Time Signature Neutrophils % 89.5 % [facility]ORY Neutr Abs (ANC) 13.97 (H) 1.70 - [facility] 6.10 [facility] x10(3)/[facility] LABORATORY Lymphocytes % 3.7 % [facility]ORY Lymphocytes Abs 0.6 (L) 0.9 - 3.2 [facility] x10(3)/[facility] LABORATORY Monocytes % 6.1 % [facility]ORY Monocyte Abs 1.0 (H) 0.3 - 0.9 [facility] x10(3)/[facility] LABORATORY Eosinophils % 0.0 % [facility] Eosinophils Abs 0.0 0.0 - 0.4 [facility] x10(3)/[facility] LABORATORY Basophils % 0.2 % [facility] Basophils Abs 0.0 0.0 - 0.1 [facility] x10(3)/[facility] LABORATORY Immature Gran % 0.50 % [facility] Comment: Immature granulocytes(IG's)percentage an d absolute count will include metamyelocytes, myelocytes, and promyelo cytes. Blood smears from CBCs yielding IG's will be scanned manually for concor dance. If this scan disagrees with the automated IG or if promyelocytes are not ed, a manual differential will be performed. Melisa Gran Abs 0.08 (H) 0.00 - 0.04 x10(3)/[facility] LABORATORY Specimen Anatomical Collection Method Collection Time Receive d Time (Source) Location / / Volume Laterality Blood 12/08/2021 6:02 PM 2 6:36 EDT PM EDT Resulting Agency Comment Spec In Lab Morgan BROWN HEMATOLOGY ORDERABLES Performing Organization Address City/State/[place] [address] (ABNORMAL) Hemogram (12/08/2021 6:02 PM EDT) Analysis Performed At Patho logist Time Signature WBC 15.6 (H) 4.0 - 9.5 [facility] LABORATORY RBC 4.05 (L) 4.58 - [facility] SU 5.54 [facility] x10(6)/[facility] LABORATORY Hemoglobin 11.8 (L) 13.7 - [facility] 16.5 g/dL [facility] Hematocrit 35.8 (L) 40.5 - [facility] 48.5 % [facility] MCV 88.4 82.9 - [facility] 93.1 [facility] LABORATORY MCH 29.1 27.5 - [facility] 32.1 pg [facility] MCHC 33.0 32.0 - [facility] 35.7 g/dL [facility] Platelets 178 145 - 357 [facility] x10(3)/[facility] LABORATORY RDWSD 49.3 (H) 36.0 - [place] 45.0 [facility] LABORATORY RDWCV 15.1 (H) 11.4 - [facility] 13.8 % [facility]ATORY MPV 10.4 7.6 - 12.9 [facility] LABORATORY nRBC % Auto 0.0 % [facility]ATORY nRBC Abs Auto 0.000 0.000 - [facility] 0.000 [facility] x10(3)/[facility] LABORATORY Specimen Anatomical Collection Method Collection Time Receive d Time (Source) Location / / Volume Laterality Blood 12/08/2021 6:02 PM 2 6:36 EDT PM EDT Resulting Agency Comment Spec In Lab Morgan BROWN HEMATOLOGY ORDERABLES Performing Organization Address City/State/[place] [address] (ABNORMAL) Troponin (12/08/2021 6:02 PM EDT) P athologist Signature Troponin-T 0.89 (H) 0.00 - [facility] 0.00 ng/mL [facility] Comment: The 99th percentile for Troponin T is le ss than 0.01 ng/mL, any detectable cTnT concentration using this assay should be considered elevated. According to the third universal definit ion of myocardial infarction the following criteria with a clinical prese ntation consistent with acute myocardial ischemia meets the diagnosis for a myocardial infarction ([place]). Detection of a rise and/or fall of [...] additional sample may be indicated. Reference: Third [place] Definition of Myocardial Infarction. Journal of the [place] [employer] 2012;60:1581-98 Specimen Anatomical Collection Method Collection Time Receive d Time (Source) Location / / Volume Laterality Blood 12/08/2021 6:02 PM 2 6:36 EDT PM EDT Resulting Agency Comment Spec In Lab Iker Cuevas MD CHEMISTRY ORDERABLES Performing Organization Address City/State/[place] [address] COVID-19 PCR (12/08/2021 5:00 PM EDT) Patholo gist Method Time Signature SARS-CoV-2 Not Detected Not Detected BARBARA RNA PCR [facility] Comment: This result should be interpreted [...] using the Simplexa COVID-19 Direct Assay by [employer] marcum as authorized by the FDA issued Emergency Use Authorization (EUA). This assay is intended for In-vitro Diagnostic (IVD) use with nasopharyngeal swabs collected from individuals meeting the CDC criteria for testing. e assay is performed based on the instructions for use and additional guid ance provided by the FDA. Testing is performed in the Microbiology Laboratory within the Department of Pathology and Laboratory Medicine at [facility], certified under the Clinical Laboratory Improvement Amendmen [...] clinical management guidance information are available at e CDC Coronavirus Disease 2019 (COVID-19) webpage under Information fo r Healthcare Professionals (https://www.cdc.gov/coronavirus/2019-nc ov/hcp/index.html). Additional information about this and ot her EUA tests can be found in provider and patient fact sheets at the following FDA website: https://www.fda.gov/medical-devices/vuhbzylhgqf-hlrnmaj-4772-qccwv-86-kykwoqdvy- jss-lsmyqlezzyburr-wvnsoky-devices/rwyqp-szxjekbtadi-jikp SARS-CoV-[address] [facility] Specimen (Source) Anatomical Collection Method Collection Time Re ceived Time Location / / Volume Laterality Nasopharyngeal Swab 12/08/2021 5:00 12/08 PM EDT 6:03 PM EDT Comment: Symptoms->Surveillance Resulting Agency Comment Spec In Lab Iker Cuevas MD MICROBIOLOGY - GENERAL ORDER [place] Performing Organization Address City/[facility]/[place] [address] EKG 12 Lead (12/08/2021 4:40 PM EDT) Component Value Ref Range Test Analysis Performed Pathologis t Method Time At Signature Ventricular rate 78 BPM MUSE SYSTEM Atrial Rate 78 BPM MUSE SYSTEM P-R Interval 152 ms MUSE SYSTEM QRS Duration 96 ms MUSE SYSTEM Q-T Interval 396 ms MUSE SYSTEM QTC Calculated 451 ms MUSE SYSTEM (Bezet) Calculated P Purdum 44 degrees MUSE SYSTEM Calculated R Purdum -31 degrees MUSE SYSTEM Calculated T Purdum 124 degrees MUSE SYSTEM INTERPRETATION Normal sinus rhythm MUSE SYSTEM Left axis deviation ST elevation ??in V1, minimal eleavtion V2 ST & T wave abnormality, consider lateral ischemia Abnormal ECG When compared with ECG of 06-SEP-2019 14:15, Questionable change in initial forces of Septal leads Confirmed by Jeanie Lucas ([id number]) on 12/09/2021 4:34:49 P M Specimen Anatomical Collection Method Collection Time Receive d Time (Source) Location / / Volume Laterality 12/08/2021 4:40 PM 2 4:34 EDT PM EDT Iker Cuevas MD ECG ORDERABLES Performing Organization Address City/[facility]/ZIP Code Phon e Number MUSE SYSTEM (ABNORMAL) POCT Glucose (12/08/2021 4:34 PM EDT) P athologist Signature POC Glucose 400 (H) 65 - 199 [facility] mg/dL [facility] Comment: Supplemental ranges: <140 mg/dL before meals <180 mg/dL all other times of the day Specimen Anatomical Collection Method Collection Time Receive d Time (Source) Location / / Volume Laterality Blood 12/08/2021 4:34 PM 2 4:34 EDT PM EDT Iker Cuevas MD POINT OF CARE TEST ORDERABLE S Performing Organization Address City/State/[place] [address] documented in this encounter Visit Diagnoses Diagnosis Admitted with CHF. 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 OSMANI ok. PCI of LM/ostial Cx. Will stage RPDA for 2 w eeks. EDP 30. DM. MARIA VICTORIA. ICM. Home Wednesday. - Primary Unspecified general medical examination ST elevation myocardial infarction (STEM I), unspecified artery Acute HFrEF (heart failure with reduced ejection fraction) ASHD (arteriosclerotic heart disease) Coronary atherosclerosis of unspecified type of vessel, [place] or graft Cardiomyopathy, ischemic Other specified forms of chronic ischemi c heart disease documented in this encounter Admitting Diagnoses Diagnosis NSTEMI (non-ST elevated myocardial infar ction) Acute myocardial infarction, subendocard ial infarction, episode of care unspecified documented in this encounter Administered Medications Inactive Administered Medications - up to 3 most recent administrations Medication Order MAR Action Action Date Dose Rate Site amLODIPine (Norvasc) tablet 5 mg Given 12/10/2021 7:37 AM EDT 5 mg 5 mg, Oral, DAILY, First dose on Wed12/09/21 at 0900, Until Discontinued, Routine Given 12/09/2021 8:25 AM EDT 5 mg apixaban (Eliquis) tablet 5 mg Given 12/12/2021 8:30 AM EDT 5 mg 5 mg, Oral, 2 TIMES DAILY, First dose on Wed12/10/21 at 2100, Until Discontinued, Anticoagulant, Routine Given 12/11/2021 8:41 PM EDT 5 mg Given 12/11/2021 8:35 AM EDT 5 mg aspirin chewable tablet 81 mg Given 12/12/2021 8:28 AM EDT 81 mg 81 mg, Oral, DAILY, First dose on Wed12/09/21 at 0900, Until Discontinued, Routine Given 12/11/2021 8:34 AM EDT 81 mg Given 12/10/2021 7:35 AM EDT 81 mg atorvastatin (Lipitor) tablet 40 mg Given 12/11/2021 5:17 PM EDT 40 mg 40 mg, Oral, EVERY EVENING, First dose on Wed12/08/21 at 1730, Until Discontinued, Routine Given 12/10/2021 5:44 PM EDT 40 mg Given 12/09/2021 5:02 PM EDT 40 mg bisacodyL (Dulcolax) suppository 10 mg 10 mg, Rectal, DAILY PRN, Starting on Wed12/09/21 at 1 629, Until Wed12/12/21 at 1312, Constipation, Routine clopidogreL (Plavix) tablet 75 mg Given 12/10/2021 7:37 AM EDT 75 mg 75 mg, Oral, DAILY, First dose on Wed12/09/21 at 0900, Until Discontinued, Routine Given 12/09/2021 8:25 AM EDT 75 mg clopidogreL (Plavix) tablet 75 mg Given 12/12/2021 8:29 AM EDT 75 mg 75 mg, Oral, DAILY, First dose on Wed12/11/21 at 0900, Until Discontinued, Routine Given 12/11/2021 8:34 AM EDT 75 mg dextrose 10% infusion 250 mL, at 1,000 mL/hr, Intravenous, VICENTE RY 30 MIN PRN, Starting on Wed12/08/21 at 1639, Until Wed12/12/21 at 1312, For BG 50-70 mg/dL: Oral treatment preferred: If able to drink, give 120 mL Juice or R egular (not diet) soda OR If NPO, give 15 gram glucose 40% oral gel massaged into buccal mucosa OR if unconscious or uncooperative, give 25 gram (250 mL) Dex trose 10% IV over 15 minutes per protocol OR, if no IV access, 1 mg Glucagon IM. * * For BG less than 50 mg/dL: Oral treatment preferred: If able to drink, give 240 mL Juice or Regu lar (not diet) soda OR If NPO, give 30 gram glucose 40% oral gel m assaged in buccal mucosa OR if unconscious or uncooperative, give 25 gram (250 mL) Dextrose 10% I V over 15 minutes per protocol OR, if no IV access, 1 mg Glucagon IM. Rech aiyana BG in 30 minutes. May repeat juice/soda, gel, dextrose or gluc agon once per episode. For persistent hypoglycemia, consider longer-acting treatment for the duration of the active insulin. empagliflozin (Jardiance) Tab 10 mg Given 12/11/2021 10:04 AM EDT 10 mg 10 mg, Oral, DAILY, First dose on Wed12/11/21 at 0915, Until Discontinued, Routine furosemide (Lasix) (10 mg/mL) injection 40 mg Given 12/08/2021 6:17 PM EDT 40 mg 40 mg, Intravenous, ONCE, 1 dose, On Wed12/08/21 at 1815, Routine furosemide (Lasix) (10 mg/mL) injection 40 mg Given 12/09/2021 5:17 AM EDT 40 mg 40 mg, Intravenous, ONCE, 1 dose, On Wed12/09/21 at 0545, Routine furosemide (Lasix) (10 mg/mL) injection 80 mg Given 12/09/2021 8:22 AM EDT 80 mg 80 mg, Intravenous, ONCE, 1 dose, On Wed12/09/21 at 0845, Routine furosemide (Lasix) (10 mg/mL) injection 80 mg Given 12/09/2021 5:02 PM EDT 80 mg 80 mg, Intravenous, ONCE, 1 dose, On Wed12/09/21 at 1645, Routine furosemide (Lasix) (10 mg/mL) injection 80 mg Given 12/10/2021 11:00 AM EDT 80 mg 80 mg, Intravenous, ONCE, 1 dose, On Wed12/10/21 at 1100, Cath (Intra-Procedure), Routine furosemide (Lasix) (10 mg/mL) injection 80 mg Given 12/10/2021 5:44 PM EDT 80 mg 80 mg, Intravenous, ONCE, 1 dose, On Wed12/10/21 at 1645, Routine glucagon (Glucagen) (1 mg/mL) injection solution 1 mg 1 mg, Intramuscular, EVERY 30 MIN PRN, S tarting on Wed12/08/21 at 1639, Until Wed12/12/21 at 1312, Low blood sugar, For BG 50-70 mg/dL: Oral treatment preferred: If able to drink, give 120 mL Juice or R egular (not diet) soda OR If NPO, give 15 gram glucose 40% oral gel massaged into buccal mucosa OR if unconscious or uncooperative, give 25 gram (250 mL) Dex trose 10% IV over 15 minutes per protocol OR, if no IV access, 1 mg Glucagon IM. * * For BG less than 50 mg/dL: Oral treatment preferred: If able to drink, give 240 mL Juice or Regu lar (not diet) soda OR If NPO, give 30 gram glucose 40% oral gel m assaged in buccal mucosa OR if unconscious or uncooperative, give 25 gram (250 mL) Dextrose 10% I V over 15 minutes per protocol OR, if no IV access, 1 mg Glucagon IM. Rech aiyana BG in 30 minutes. May repeat juice/soda, gel, dextrose or gluc agon once per episode. For persistent hypoglycemia, consider longer-acting treatment for the duration of the active insulin., Routine glucose (Glutose) 40% oral geL 15-30 g of glucose, Buccal, EVERY 30 MIN PRN, Starting on Wed12/08/21 at 1639, Until Wed12/12/21 at 1312, Low blood sug ar, For BG 50-70 mg/dL: Oral treatment preferred: If able to drink, give 120 mL Juice or Regu lar (not diet) soda OR If NPO, give 15 gram glucose 40% oral gel massaged into b uccal mucosa OR if unconscious or uncooperative, give 25 gr am (250 mL) Dextrose 10% IV over 15 minutes per protocol OR, if no IV access, 1 mg G lucagon IM. For BG less than 50 mg/dL: Oral treatment preferred: If able to dri nk, give 240 mL Juice or Regular (not diet) soda OR If NPO, give 30 gram glucose 40% oral gel massaged in buccal mucosa OR if unconscious or uncooperative, give 25 gr am (250 mL) Dextrose 10% IV over 15 minutes per protocol OR, if no IV access, 1 mg G lucagon IM. Recheck BG in 30 minutes. May repeat juice/soda, gel, dextrose or gluc agon once per episode. For persistent hypoglycemia, consider longer-acting treatment for the duration of the active insulin. 1 tube of Glutose-15 contains 1 5 grams of glucose (net weight of tube = 37.5 grams.), Routine heparin (porcine) (1,000 units/mL) Given 12/09/2021 12:02 AM EDT 2,000 Units injection 0-4,000 Units 0-4,000 Units, Intravenous, BOLUS PER HEPARIN PROTOCOL, Starting on Wed12/08/21 at 1639, Until Wed12/10/21 at 1419, Per Protocol, START ADJUSTMENT SCHEDULE 6 HOURS AFTER STARTING INFUSION Bolus doses are rounded to the nearest 100 units. If Heparin UFH Level is: - Less than 0.1 international unit/mL: Bolus 60 units/kg (Maximum of 4,000 units) = Bolus 4,000 units - 0.1 - 0.19 International unit/mL: Bolus 30 units/kg (Maximum of 2,000 units) = Bolus 2,000 units - Equal to or greater than 0.2 international unit/mL: No Bolus, Routine heparin (porcine) 25,000 unit/500 mL inf usion 1 dose, Starting on Wed12/08/21 at 1524, Until 11/23 at 1545, FRANCINE REYES: cabinet override heparin (porcine) 50 units/mL New Bag 12/09/2021 11:17 PM 1,60 0 Units/hr 32 mL/hr in sodium chloride 0.45% 500 EDT mL infusion 0-5,000 Units/hr (0-100 mL/hr), Intravenous, CONTINUOUS, Starting on Wed12/08/21 at 1730, Until Wed12/10/21 at 1419, Begin infusion at 1,000 units per hr (12 units/kg/hr). Maximum initial infusion rate is 1,000 units/hr. Infusion doses are rounded to the nearest 50 units. Target Heparin UFH Level (anti-Xa activity) = 0.3 - 0.7 international unit/mL Start adjustment schedule 6 hours after starting infusion. If Heparin UFH Level is: - Less than 0.1 international unit/mL: Administer PRN bolus and increase rate by 350 units per hr (4 units/kg/hr) - 0.1 - 0.19 international unit/mL: Administer PRN bolus and increase rate by 200 units per hr (2 units/kg/hr) - 0.2 - 0.29 international unit/mL: NO BOLUS and increase rate by 200 units per hr (2 units/kg/hr) - 0.3 - 0.7 international unit/mL: No change - 0.71 - 0.79 international unit/mL: NO BOLUS and decrease rate by 100 units per hr (1 units/kg/hr) - 0.8 - 0.99 international unit/mL: NO BOLUS and decrease rate by 200 units per hr (2 units/kg/hr) - Greater than or equal to 1.00 international unit/mL: Hold infusion for 60 minutes then decrease rate by 250 units per hour (3 units/kg/hr) Repeat Heparin UFH Level 6 hours after initiating heparin. Then 6 hours after each dose adjustment. When 2 consecutive Heparin UFH Level within target range of 0.3 - 0.7 international unit/mL, change Heparin UFH Level to once every 24 hours with A.M. labs while on heparin. RN to order required Heparin UFH Level - Per Protocol, Routine Rate/Dose Verify 12/09/2021 5:49 PM EDT 1,600 Units/hr 32 mL/hr Rate/Dose Verify 12/09/2021 4:00 PM EDT 1,600 Units/hr 32 mL/hr insulin glargine-ygfn (Semglee) (100 Given 12/09/2021 9:19 PM ED T 28 Units unit/mL) subcutaneous injection vial 28 Units 28 Units, Subcutaneous, NIGHTLY, First dose on Wed12/08/21 at 2100, Until Discontinued, Routine Given 12/08/2021 9:00 PM EDT 28 Units insulin glargine-ygfn (Semglee) (100 Given 12/10/2021 8:33 PM ED T 35 Units unit/mL) subcutaneous injection vial 35 Units 35 Units, Subcutaneous, NIGHTLY, First dose (after last modification) on Wed12/10/21 at 2100, Until Discontinued, Routine insulin glargine-ygfn (Semglee) (100 Given 12/11/2021 8:42 PM ED T 42 Units unit/mL) subcutaneous injection vial 42 Units 42 Units, Subcutaneous, NIGHTLY, First dose (after last modification) on Wed12/11/21 at 2100, Until Discontinued, Routine insulin lispro (HumaLOG;Admelog) (100 Given 12/10/2021 1:58 PM E DT 5 Units unit/mL) subcutaneous injection vial 0-12 Units 0-12 Units, Subcutaneous, 3 TIMES DAILY WITH MEALS, First dose on Wed12/09/21 at 1730, Until Discontinued, MEAL ASSOCIATED Give 1 unit: 8 grams of carbohydrate Hold if not eating or if BG less than 70 mg/dL., Routine Given 12/09/2021 5:49 PM EDT 2 Units insulin lispro (HumaLOG;Admelog) (100 Given 12/11/2021 8:36 AM E DT 13 Units unit/mL) subcutaneous injection vial 0-15 Units 0-15 Units, Subcutaneous, 3 TIMES DAILY WITH MEALS, First dose (after last modification) on Wed12/10/21 at 1500, Until Discontinued, MEAL ASSOCIATED Give 1 unit: 5 grams of carbohydrate Hold if not eating or if BG less than 70 mg/dL., Routine Given 12/10/2021 5:16 PM EDT 6 Units insulin lispro (HumaLOG;Admelog) (100 Given 12/11/2021 12:20 PM EDT 25 Units unit/mL) subcutaneous injection vial 0-25 Units 0-25 Units, Subcutaneous, 3 TIMES DAILY WITH MEALS, First dose (after last modification) on Wed12/11/21 at 1300, Until Discontinued, MEAL ASSOCIATED Give 1 unit: 3 grams of carbohydrate Hold if not eating or if BG less than 70 mg/dL., Routine insulin lispro (HumaLOG;Admelog) (100 Given 12/12/2021 8:28 AM E DT 10 Units unit/mL) subcutaneous injection vial 0-35 Units 0-35 Units, Subcutaneous, 3 TIMES DAILY WITH MEALS, First dose (after last modification) on Wed12/11/21 at 1730, Until Discontinued, MEAL ASSOCIATED Give 1 unit: 3 grams of carbohydrate Hold if not eating or if BG less than 70 mg/dL., Routine Given 12/11/2021 5:16 PM EDT 10 Units insulin lispro (HumaLOG;Admelog) (100 Given 12/09/2021 1:24 PM E DT 3 Units unit/mL) subcutaneous injection vial 0-8 Units 0-8 Units, Subcutaneous, 3 TIMES DAILY WITH MEALS, First dose on [facility] 12/08/21 at 1730, Until Discontinued, MEAL ASSOCIATED Give 1 unit for every 10 grams carbohydrate. Hold if not eating or if BG less than 70 mg/dL., Routine Given 12/08/2021 6:15 PM EDT 5 Units Left Arm insulin lispro (HumaLOG;Admelog) (100 Given 12/09/2021 5:08 PM E DT 6 Units unit/mL) subcutaneous injection vial 1-6 Units 1-6 Units, Subcutaneous, 3 TIMES DAILY BEFORE MEALS, First dose on Wed12/08/21 at 1730, Until Discontinued, CORRECTION BOLUS [1-6 Units] Moderate Sliding Scale (BG in mg/dL): Correction factor 20 (1 unit of insulin is expected to drop the glucose 20 mg/dL) BG 140 - 160 Give 1 unit BG 161 - 180 Give 2 units BG 181 - 200 Give 3 units BG 201 - 220 Give 4 units BG 221 - 240 Give 5 units BG greater than 240, give 6 units and recheck BG in 2 hours. - If recheck BG is LESS than 240, give no insulin and resume schedule. - If recheck BG is GREATER than 240, give 6 units and repeat BG in 2 hours (no more than 3 times) & call for new insulin orders. DO NOT hold if NPO, unless specifically directed to do so by written order. Per Blood Glucose Monitoring Policy, re-check a BG of > 240 mg/dL in 2 hours., Routine Given 12/09/2021 12:11 PM EDT 5 Units Given 12/09/2021 8:20 AM EDT 6 Units Right Arm insulin lispro (HumaLOG;Admelog) (100 Given 12/10/2021 12:38 PM EDT 6 Units unit/mL) subcutaneous injection vial 1-6 Units 1-6 Units, Subcutaneous, 4 TIMES DAILY BEFORE MEALS & NIGHTLY, First dose (after last modification) on Wed12/09/21 at 2130, Until Discontinued, CORRECTION BOLUS [1-6 Units] Moderate Sliding Scale (BG in mg/dL): Correction factor 20 (1 unit of insulin is expected to drop the glucose 20 mg/dL) BG 140 - 160 Give 1 unit BG 161 - 180 Give 2 units BG 181 - 200 Give 3 units BG 201 - 220 Give 4 units BG 221 - 240 Give 5 units BG greater than 240, give 6 units and recheck BG in 2 hours. - If recheck BG is LESS than 240, give no insulin and resume schedule. - If recheck BG is GREATER than 240, give 6 units and repeat BG in 2 hours (no more than 3 times) & call for new insulin orders. DO NOT hold if NPO, unless specifically directed to do so by written order. Per Blood Glucose Monitoring Policy, re-check a BG of > 240 mg/dL in 2 hours., Routine Given 12/10/2021 9:51 AM EDT 6 Units Given 12/10/2021 7:35 AM EDT 6 Units insulin lispro (HumaLOG;Admelog) (100 Given 12/12/2021 7:43 AM E DT 4 Units unit/mL) subcutaneous injection vial 1-6 Units 1-6 Units, Subcutaneous, EVERY 4 HOURS SCHEDULED, First dose (after last modification) on Wed12/10/21 at 1630, Until Discontinued, CORRECTION BOLUS [1-6 Units] Moderate Sliding Scale (BG in mg/dL): Correction factor 20 (1 unit of insulin is expected to drop the glucose 20 mg/dL) BG 140 - 160 Give 1 unit BG 161 - 180 Give 2 units BG 181 - 200 Give 3 units BG 201 - 220 Give 4 units BG 221 - 240 Give 5 units BG greater than 240, give 6 units and recheck BG in 2 hours. - If recheck BG is LESS than 240, give no insulin and resume schedule. - If recheck BG is GREATER than 240, give 6 units and repeat BG in 2 hours (no more than 3 times) & call for new insulin orders. DO NOT hold if NPO, unless specifically directed to do so by written order. Per Blood Glucose Monitoring Policy, re-check a BG of > 240 mg/dL in 2 hours., Routine Given 12/11/2021 8:42 PM EDT 4 Units Given 12/11/2021 6:47 PM EDT 6 Units insulin lispro (HumaLOG;Admelog) (100 Given 12/08/2021 8:54 PM E DT 12 Units unit/mL) subcutaneous injection vial 12 Units 12 Units, Subcutaneous, ONCE, 1 dose, On Wed12/08/21 at 2130, Routine insulin lispro (HumaLOG;Admelog) Given 12/09/2021 6:54 PM EDT 15 Units Left Arm (100 unit/mL) subcutaneous injection vial 15 Units 15 Units, Subcutaneous, ONCE, 1 dose, On Wed12/09/21 at 1930, Routine insulin lispro (HumaLOG;Admelog) (100 Given 12/09/2021 12:12 AM EDT 8 Units unit/mL) subcutaneous injection vial 8 Units 8 Units, Subcutaneous, ONCE, 1 dose, On Wed12/09/21 at 0100, Routine ipratropium-albuteroL (Duoneb) 0.5 mg-3 mg(2.5 Given 0 12/11/2021 8:44 AM EDT 3 mLs mg base)/3 mL nebulizer solution 3 mL 3 mL, Nebulization, EVERY 4 HOURS PRN, Starting on Wed12/09/21 at 0509, Until Wed12/12/21 at 1312, Wheezing, Routine Given 12/10/2021 7:35 AM EDT 3 mLs Given 12/09/2021 5:17 AM EDT 3 mLs levothyroxine (Synthroid) tablet 175 mcg Given 12/12/2021 8:29 AM EDT 175 mcg 175 mcg, Oral, DAILY, First dose on Wed12/08/21 at 1730, Until Discontinued, Routine Given 12/11/2021 8:34 AM EDT 175 mcg Given 12/09/2021 8:25 AM EDT 175 mcg losartan (Cozaar) tablet 100 mg Given 12/12/2021 8:28 AM EDT 100 mg 100 mg, Oral, DAILY, First dose on Wed12/09/21 at 0900, Until Discontinued, Routine Given 12/11/2021 8:35 AM EDT 100 mg Given 12/10/2021 7:35 AM EDT 100 mg magnesium sulfate 2 g in sterile water New Bag 12/10/2021 10:4 3 AM EDT 2 g 25 mL/hr 50 mL infusion 2 g, Intravenous, ONCE, 1 dose, On Wed12/10/21 at 1100, Administer over 120 Minutes metoprolol tartrate (Lopressor) tablet 12.5 Given 11/24 6:31 AM EDT 12.5 mg mg 12.5 mg, Oral, EVERY 6 HOURS SCHEDULED, First dose on Wed12/08/21 at 1800, Until Discontinued, Routine Given 12/12/2021 12:01 AM EDT 12.5 mg Given 12/11/2021 5:17 PM EDT 12.5 mg nitroGLYcerin (200 Rate/Dose Verify 12/09/2021 5:49 PM EDT 10 mcg/min 3 mL/hr mcg/mL) in dextrose 5% 250 mL infusion 10 mcg/min (3 mL/hr), Intravenous, CONTINUOUS, Starting on Wed12/09/21 at 0845, Until Wed12/10/21 at 1419, Initiate at 10 mcg/minute for pain not responsive to sublingual nitroGLYcerin and if SBP is 100 mmHG or greater. Increase dose 10 mcg/minute every 5 minutes if SBP is 100 mmHG or greater to maximum dose 100 mcg/minute. Titrate to pain 3/10 or less Hold for SBP less than 90 mmHG AND call provider Maximum dose: 200 mcg/min, Routine Rate/Dose Verify 12/09/2021 4:00 PM EDT 10 mcg/min 3 mL/hr Rate/Dose Verify 12/09/2021 2:12 PM EDT 10 mcg/min 3 mL/hr pantoprazole EC (Protonix) tablet 40 mg Given 12/12/2021 8:29 AM EDT 40 mg 40 mg, Oral, DAILY, First dose on Wed12/08/21 at 1830, Until Discontinued, DO NOT CRUSH OR OPEN, Routine Given 12/11/2021 8:35 AM EDT 40 mg Given 12/10/2021 7:35 AM EDT 40 mg phytonadione (vitamin K1) (Mephyton) tablet Given 11/23 12:14 PM EDT 2.5 mg 2.5 mg 2.5 mg, Oral, ONCE, 1 dose, On Wed12/09/21 at 1300, Routine polyethylene glycoL (Miralax) packet 17 g Given 12/11/2021 8:44 AM EDT 17 g 17 g, Oral, DAILY, First dose on Wed12/09/21 at 1715, Until Discontinued, Routine Given 12/09/2021 5:02 PM EDT 17 g potassium chloride ER (K-Dur/Klor-Con) tablet Given 2:01 PM EDT 40 mEq 40 mEq 40 mEq, Oral, ONCE, 1 dose, On Wed12/10/21 at 1245, Routine senna-docusate (Pericolace) 8.6-50 mg pe r tablet 1 tablet 1 tablet, Oral, 2 TIMES DAILY PRN, Starting on 11/23 at 1628, Until Wed12/12/21 at 1312, Constipation, Routine sodium chloride 0.9 % (flush) (BD PosiFlush Given 12/11/2021 8:4 1 PM EDT 5 mLs Normal Saline 0.9) flush 5 mL 5 mL, Intravenous, 2 TIMES DAILY, First dose on 12/08/21 at 2100, Until Discontinued, Routine Given 12/11/2021 9:00 AM EDT 5 mLs Given 12/10/2021 8:34 PM EDT 5 mLs spironolactone (Aldactone) tablet 25 mg Given 12/12/2021 8:29 AM EDT 25 mg 25 mg, Oral, DAILY, First dose on Ivis 12/11/21 at 0915, Until Discontinued, DO NOT SPLIT, CRUSH OR OPEN, Routine Given 12/11/2021 8:44 AM EDT 25 mg torsemide (Demadex) tablet 40 mg Given 12/12/2021 8:28 AM EDT 40 mg 40 mg, Oral, DAILY, First dose on Ivis 12/11/21 at 0930, Until Discontinued, Routine Given 12/11/2021 8:44 AM EDT 40 mg documented in this encounter Active and Recently Administered Medications Times are shown in EDT. Scheduled Medication Order 12/10/2021 12/11/2021 12/12/2021 amLODIPine (Norvasc) tablet 5 mg (CANCELED) 0737 (Give n - Provider: Emma Garcia RN)0805 (SEP Hold - Provider: Admin Adt - Reason: Transfer to a Procedural area)0900 (Not Given - Provider: Emma Garcia RN - Reason: See comment - Comment: given before cath) 5 mg, Oral, DAILY, First dose on 11/23 at 0900, Until Discontinued, Routine 1230 (MAR Unhold - Provider: Admin Adt) apixaban (Eliquis) tablet 5 mg 2036 (Given - Provider: Barbara Boogie RN) 0835 (Given - Provider: Emma Garcia RN)204 (Given - Provider: Derrick Galeas RN) 0830 (Given - Provider: Lilliana Esteban RN) 5 mg, Oral, 2 TIMES DAILY, First dose on Wed12/10/21 at 2100, Until Discontinued, Anticoagulant, Routine aspirin chewable tablet 81 mg 0735 (Given - Provider: Emma Garcia RN)0805 (SEP Hold - Provider: Admin Adt - Reason: Transfer to a Procedural area)0900 (Not Given - Provider: Emma Garcia RN - Reason: See comment - Comment: given before cath) 0834 (Given - Provider: Emma Garcia RN) 0828 (Given - Provider: Lilliana Esteban, VAMSI) 81 mg, Oral, DAILY, First dose on Wed at 0900, Until Discontinued, Routine 1230 (SEP Unhold - Provider: Admin Adt) atorvastatin (Lipitor) tablet 40 mg 0805 (SEP Hold - P rovider: Admin Adt - Reason: Transfer to a Procedural area)1230 (SEP Unhold - Provider: Admin Adt)1744 (Given - Provider: Emma Garcia, VAMSI) 1717 (Given - Provider: Emma Garcia RN) 40 mg, Oral, EVERY EVENING, First dose o n 12/08/21 at 1730, Until Discontinued, Routine clopidogreL (Plavix) tablet 75 mg (CANCELED) 0737 (Giv en - Provider: Emma Garcia RN)0805 (SEP Hold - Provider: Admin Adt - Reason: Transfer to a Procedural area)0900 (Not Given - Provider: Emma Garcia RN - Reason: See comment - Comment: given before cath) 75 mg, Oral, DAILY, First dose on Wed at 0900, Until Discontinued, Routine 1230 (SEP Unhold - Provider: Admin Adt) clopidogreL (Plavix) tablet 75 mg 0834 (Given - Provider: Emma Garcia RN) 0829 (Given - Provider: Lilliana Esteban, VAMSI) 75 mg, Oral, DAILY, First dose on Wed at 0900, Until Discontinued, Routine empagliflozin (Jardiance) Tab 10 mg 1004 (Given - Provider: Emma Garcia RN) 10 mg, Oral, DAILY, First dose on Wed12/11/21 at 0915, Until Dis continued furosemide (Lasix) (10 mg/mL) injection 80 mg (COMPLET ED) 1100 (Given - Provider: Anthony Fatima RN) 80 mg, Intravenous, ONCE, 1 dose, On Wed12/10/21 at 1100, Cath (Intra- Procedure), Routine furosemide (Lasix) (10 mg/mL) injection 80 mg (COMPLET ED) 1744 (Given - Provider: Emma Garcia RN) 80 mg, Intravenous, ONCE, 1 dose, On Wed12/10/21 at 1645, Routin e insulin glargine-ygfn (Semglee) (100 uni t/mL) subcutaneous injection vial 35 Units (CANCELED) 2032 (Given - Provider: Barbara Boogie RN) 35 Units, Subcutaneous, NIGHTLY, First d ose (after last modification) on Wed12/10/21 at 2100, Until Discontinued, Routine insulin glargine-ygfn (Semglee) (100 uni t/mL) subcutaneous injection vial 42 Units 2041 (Given - Provider: Derrick Galeas RN) 42 Units, Subcutaneous, NIGHTLY, First d ose (after last modification) on Wed12/11/21 at 2100, Until Discontinued, Routine insulin lispro (HumaLOG;Admelog) (100 un it/mL) subcutaneous injection vial 0-12 Units (CANCELED) 0800 (Not Given - Provider: Emma Garcia RN - Reason: NPO)0805 (SEP Hold - Provider: Admin Adt - Reason: Transfer to a Procedural area)1200 (Not Given - Provider: Emma Garcia RN - Reason: See comment - Comment: gjiven post cath) 0-12 Units, Subcutaneous, 3 TIMES DAILY WITH MEALS, First dose on Wed12/09/21 at 1730, Until Discontinued, MEAL ASSOCIATED Give 1 unit: 8 grams of carbohydrate Hold if not eating or if BG less than 70 mg/dL., Routine 1230 (MAR Unhold - Provider: Admin Adt)1358 (Given - Provider: Emma Garcia RN) insulin lispro (HumaLOG;Admelog) (100 un it/mL) subcutaneous injection vial 0-15 Units (CANCELED) 1716 (Given - Provider: Emma Garcia RN) 0836 (Given - Provider: Emma Garcia RN)1200 (Not Given - Provider: Emma Garcia RN - Reason: Medication Discontinued) 0-15 Units, Subcutaneous, 3 TIMES DAILY WITH MEALS, First dose (after last modification) on Wed12/10/21 at 1500, Until Discontinued, MEAL ASSOCIATED Give 1 unit: 5 grams of carbohydrate Hold if not eating or if BG less than 70 mg/dL., Routine insulin lispro (HumaLOG;Admelog) (100 un it/mL) subcutaneous injection vial 0-25 Units (CANCELED) 1220 (Given - Provider: Emma Garcia RN ) 0-25 Units, Subcutaneous, 3 TIMES DAILY WITH MEALS, First dose (after last modification) on Wed12/11/21 at 1300, Until Discontinued, MEAL ASSOCIATED Give 1 unit: 3 grams of carbohydrate Hold if not eating or if BG less than 70 mg/dL., Routine insulin lispro (HumaLOG;Admelog) (100 un it/mL) subcutaneous injection vial 0-35 Units 1716 (Given - Provider: Emma Garcia RN ) 0828 (Given - Provider: Lilliana Esteban RN) 0-35 Units, Subcutaneous, 3 TIMES DAILY WITH MEALS, First dose (after last modification) on Wed12/11/21 at 1730, Until Discontinued, MEAL ASSOCIATED Give 1 unit: 3 grams of carbohydrate Hold if not eating or if BG less than 70 mg/dL., Routine insulin lispro (HumaLOG;Admelog) (100 un it/mL) subcutaneous injection vial 1-6 Units (CANCELED) 0735 (Given - Provider: Emma Garcia RN )0805 (SEP Hold - Provider: Admin Adt - Reason: Transfer to a Procedural area)0951 (Given - Provider: Anthony Fatima RN - Comment: B) 1-6 Units, Subcutaneous, 4 TIMES DAILY B EFORE MEALS & NIGHTLY, First dose (after last modification) on Wed12/09/21 at 2130, Until Discontinued, CORRECTION BOLUS [1-6 Units] Moderate Sliding Scal 1130 (Not Given - Provider: Emma Garcia RN - Reason: Transfer to a Procedural area - Comment: given post cath)1230 (MAR Unhold - Provider: Admin Adt)1238 (Given - Provider: Emma Garcia RN) e (BG in mg/dL): Correction factor 20 (1 unit of insulin is expected to drop the glucose 20 mg/dL) BG 140 - 160 Give 1 unit BG 161 - 180 Give 2 units BG 181 - 200 Give 3 units BG 201 - 220 Give 4 units BG 221 - 240 Give 5 units BG greater eva n 240, give 6 units and recheck BG in 2 hours. - If recheck BG is LESS than 240, give no insulin and resume schedule. - If recheck BG is GREATER than 240, give 6 units and repeat BG in 2 hours (no more than 3 times) & call for new insulin orders. DO NOT hold if NPO, unless specifically directed to do so by written order. Per Blood Glucose Monitoring Policy, re-check a BG of > 240 mg/dL in 2 hours., Routine insulin lispro (HumaLOG;Admelog) (100 un it/mL) subcutaneous injection vial 1-6 Units(Linked Group 1) 1717 (Given - Provider: Emma Garcia RN )2034 (Given - Provider: Barbara Boogie RN)2346 (Given - Provider: Barbara Boogie RN) 0507 (Given - Provider: Barbara Boogie RN)0745 (Given - Provider: Emma Garcia RN)1206 (Given - Provider: Emma Garcia RN)1609 (Given - Provider: Emma Garcia RN)1847 (Given - Provider: Emma Garcia RN)2042 (Given - Provider: Derrick Galeas RN) 0000 (Not Given - Provider: Derrick Galeas RN - Reason: Order parameters not met)0400 (Not Given - Provider: Derrick Galeas RN - Reason: Order parameters not met)0743 (Given - Provider: Lilliana Esteban RN - Comment: bg 214) 1-6 Units, Subcutaneous, EVERY 4 HOURS S CHEDULED, First dose (after last modification) on Wed12/10/21 at 1630, Until Discontinued, CORRECTION BOLUS [1-6 Units] Moderate Sliding Scale (BG in mg/dL): Correction factor 20 (1 unit of insulin is expected to drop the glucose 20 mg/dL) BG 140 - 160 Give 1 unit BG 161 - 180 Give 2 units BG 181 - 200 Give 3 units BG 201 - 220 Give 4 units BG 221 - 240 Give 5 units BG greater than 240, give 6 uni ts and recheck BG in 2 hours. - If recheck BG is LESS than 240, give no insulin and resume schedule. - If recheck BG is GREATER than 240, give 6 units and repeat BG in 2 hours (no more than 3 times) & c all for new insulin orders. DO NOT hold if NPO, unless specifically directed to do so by written order. Per Blood Glucose Monitoring Policy, re-check a BG of > 240 mg/dL in 2 hours., Routine levothyroxine (Synthroid) tablet 175 mcg 0805 (SEP Hol d - Provider: Admin Adt - Reason: Transfer to a Procedural area)0900 (Not Given - Provider: Emma Garcia RN - Reason: Transfer to a Procedural area)1230 (SEP Unhold - Provider: Admin Adt) 0834 (Given - Provider: Emma Garcia, VAMSI) 0829 (Given - Provider: Lilliana Esteban, VAMSI) 175 mcg, Oral, DAILY, First dose on Wed12/08/21 at 1730, Until Discontinued, Routine losartan (Cozaar) tablet 100 mg 0735 (Given - Provider : Emma Garcia, VAMSI)0805 (SEP Hold - Provider: Admin Adt - Reason: Transfer to a Procedural area)0900 (Not Given - Provider: Emma Garcia RN - Reason: See comment - Comment: given before cath) 0835 (Given - Provider: mEma Garcia RN) 0828 (Given - Provider: Lilliana Esteban, VAMSI) 100 mg, Oral, DAILY, First dose on Wed at 0900, Until Discontinued, Routine 1230 (SEP Unhold - Provider: Admin Adt) magnesium sulfate 2 g in sterile water 50 mL infusion (COMPLETED) 1043 (New Bag - Provider: Anthony Fatima, VAMSI)1243 (Stopped - Provider: Emma Garcia RN) 2 g, Intravenous, ONCE, 1 dose, On Wed at 1100, Administer over 120 Minutes metoprolol tartrate (Lopressor) tablet 12.5 mg 0556 (G iven - Provider: Maryjane Joyce, VAMSI)0805 (SEP Hold - Provider: Admin Adt - Reason: Transfer to a Procedural area)1200 (Not Given - Provider: Emma Garcia RN - Reason: Transfer to a Procedural area)1230 (SEP Unhold - Provider: Admin Adt) 0504 (Given - Provider: Barbara Boogie RN)1217 (Given - Provider: Emma Garcia RN)1717 (Given - Provider: Emma Garcia, VAMSI) 0001 (Given - Provider: Derrick Galeas, VAMSI)0631 (Given - Provider: Derrick Galeas, VAMSI) 12.5 mg, Oral, EVERY 6 HOURS SCHEDULED, First dose on Wed12/08/21 at 1800, Until Discontinued, Routine 1744 (Given - Provider: Emma Garcia, VAMSI )2345 (Given - Provider: Barbara Boogie, VAMSI) pantoprazole EC (Protonix) tablet 40 mg 0735 (Given - Provider: Emma Garcia RN)0805 (SEP Hold - Provider: Admin Adt - Reason: Transfer to a Procedural area)0900 (Not Given - Provider: Emma Garcia RN - Reason: See comment - Comment: given before cath) 0835 (Given - Provider: Emma Garcia RN) 0829 (Given - Provider: Lilliana Esteban, VAMSI) 40 mg, Oral, DAILY, First dose on Wed at 1830, Until Discontinued, DO NOT CRUSH OR OPEN, Routine 1230 (SEP Unhold - Provider: Admin Adt) polyethylene glycoL (Miralax) packet 17 g 0805 (SEP Ho ld - Provider: Admin Adt - Reason: Transfer to a Procedural area)0900 (Not Given - Provider: Emma Garcia RN - Reason: Transfer to a Procedural area)1230 (SEP Unhold - Provider: Admin Adt) 0844 (Given - Provider: Emma Garcia, VAMSI) 0900 (Hold - Provider: Lilliana Esteban, VAMSI - Reason: Patient/family refused) 17 g, Oral, DAILY, First dose on 11/23 at 1715, Until Discontinued, Routine potassium chloride ER (K-Dur/Klor-Con) tablet 40 mEq ( COMPLETED) 1401 (Given - Provider: Emma Garcia, VAMSI) 40 mEq, Oral, ONCE, 1 dose, On Wed12/10/21 at 1245, Routine sodium chloride 0.9 % (flush) (BD PosiFlush Normal Sean ine 0.9) flush 5 mL 0805 (SEP Hold - Provider: Admin Adt - Reason: Transfer to a Procedural area)0900 (Not Given - Provider: Emma Garcia RN - Reason: Transfer to a Procedural area)1230 (SEP Unhold - Provider: Admin Adt)1746 (Given - Provider: Emma Garcia, VAMSI) 0900 (Given - Provider: Emma Garcia, VAMSI )2040 (Given - Provider: Derrick Galeas RN) 0900 (Hold - Provider: Lilliana cerda RN - Reason: Loss of access) 5 mL, Intravenous, 2 TIMES DAILY, First dose on Wed12/08/21 at 2100, Until Discontinued, Routine 2033 (Given - Provider: Barbara Boogie RN) spironolactone (Aldactone) tablet 25 mg 0844 (Given - Provider: Emma Garcia RN) 0829 (Given - Provider: Lilliana friedman RN) 25 mg, Oral, DAILY, First dose on Ivis at 0915, Until Discontinued, DO NOT SPLIT, CRUSH OR OPEN, Routine torsemide (Demadex) tablet 40 mg 0844 (Given - P rovider: Emma Garcia RN) 0828 (Given - Provider: Lilliana Esteban RN) 40 mg, Oral, DAILY, First dose on Wed at 0930, Until Discontinued, Routine PRN Medication Order 12/10/2021 12/11/2021 12/12/2021 acetaminophen (Tylenol) tablet 650 mg 0805 (SEP Hold - Provider: Admin Adt - Reason: Transfer to a Procedural area)1230 (SEP Unhold - Provider: Admin Adt) 650 mg, Oral, EVERY 4 HOURS PRN, Startin g on Wed12/08/21 at 1639, Until Wed12/12/21 at 1312, Pain, Headaches, Maximum dose of acetaminophen is 4000 mg from all sources in 24 hours. When ordered for pain , acetaminophen should be given even whe n other ordered pain medications are indicated. , Routine bisacodyL (Dulcolax) suppository 10 mg 0805 (SEP Hold - Provider: Admin Adt - Reason: Transfer to a Procedural area)1230 (SEP Unhold - Provider: Admin Adt) 10 mg, Rectal, DAILY PRN, Starting on Tu e 12/09/21 at 1629, Until Wed12/12/21 at 1312, Constipation, Routine dextrose 10% infusion(Linked Group 2) 0805 (SEP Hold - Provider: Admin Adt - Reason: Transfer to a Procedural area)1230 (SEP Unhold - Provider: Admin Adt) 250 mL, at 1,000 mL/hr, Intravenous, VICENTE RY 30 MIN PRN, Starting on Wed12/08/21 at 1639, Until Wed12/12/21 at 1312, For BG 50-70 mg/dL: Oral treatment preferred: If able to drink, give 120 mL Juice or Regular (not diet) soda OR If NPO, give 15 gram glucose 40% oral gel massaged into buccal mucosa OR if unconscious or uncooperative, give 25 gram (250 mL) Dextrose 10% IV over 15 minutes per protocol O R, if no IV access, 1 mg Glucagon IM. For BG less than 50 mg/dL: Oral treatment preferred: If able to drink, give 240 mL Juice or Regular (not diet) soda OR If NPO, give 30 gram glucose 40% oral gel massaged in buccal mucosa OR if unconsci ous or uncooperative, give 25 gram (250 mL) Dextrose 10% IV over 15 minutes per protocol OR, if no IV access, 1 mg Glucagon IM. Recheck BG in 30 minutes. May re peat juice/soda, gel, dextrose or glucag on once per episode. For persistent hypoglycemia, consider longer-acting treatment for the duration of the active insulin. fentaNYL (pf) (50 mcg/mL) multi-dose injection (CANCEL ED) 0834 (Given - Provider: Mendy Schaffer)1000 (Given - Provider: Mendy Schaffer) ONCE PRN, Starting on Wed12/10/21 at 083 4, Until Wed12/10/21 at 1230, Intra- Operative (Intra-Procedure), Routine glucagon (Glucagen) (1 mg/mL) injection solution 1 mg( Linked Group 2) 0805 (SEP Hold - Provider: Admin Adt - Reason: Transfer to a Procedural area)1230 (SEP Unhold - Provider: Admin Adt) 1 mg, Intramuscular, EVERY 30 MIN PRN, S tarting on Wed12/08/21 at 1639, Until Wed12/12/21 at 1312, Low blood sugar, For BG 50-70 mg/dL: Oral treatment preferred: If able to drink, give 120 mL Juice o r Regular (not diet) soda OR If NPO, giv e 15 gram glucose 40% oral gel massaged into buccal mucosa OR if unconscious or uncooperative, give 25 gram (250 mL) Dextrose 10% IV over 15 minutes per protocol OR, if no IV access, 1 mg Glucagon IM. * * For BG less than 50 mg/dL: Oral treatment preferred: If able to drink, give 240 mL Juice or Regular (not diet) soda OR If NPO, give 30 gram glucose 40% oral gel massaged in buccal mucosa OR if unconsc ious or uncooperative, give 25 gram (250 mL) Dextrose 10% IV over 15 minutes per protocol OR, if no IV access, 1 mg Glucagon IM. Recheck BG in 30 minutes. May r epeat juice/soda, gel, dextrose or gluca aman once per episode. For persistent hypoglycemia, consider longer-acting treatment for the duration of the active insulin., Routine glucose (Glutose) 40% oral geL(Linked Group 2) 0805 (M AR Hold - Provider: Admin Adt - Reason: Transfer to a Procedural area)1230 (MAR Unhold - Provider: Admin Adt) 15-30 g of glucose, Buccal, EVERY 30 MIN PRN, Starting on Wed12/08/21 at 1639, Until Wed12/12/21 at 1312, Low blood sugar, For BG 50-70 mg/dL: Oral treatment preferred: If able to drink, give 120 mL Juice or Regular (not diet) soda OR If N PO, give 15 gram glucose 40% oral gel massaged into buccal mucosa OR if unconscious or uncooperative, give 25 gram (250 mL) Dextrose 10% IV over 15 minutes per pr otocol OR, if no IV access, 1 mg Glucago n IM. For BG less than 50 mg/dL: Oral treatment preferred: If able to drink, give 240 mL Juice or Regular (not diet) soda OR If NPO, give 30 gram glucose 40% o ral gel massaged in buccal mucosa OR if unconscious or uncooperative, give 25 gram (250 mL) Dextrose 10% IV over 15 minutes per protocol OR, if no IV access, 1 mg Glucagon IM. Recheck BG in 30 minutes . May repeat juice/soda, gel, dextrose o r glucagon once per episode. For persistent hypoglycemia, consider longer-acting treatment for the duration of the active insulin. 1 tube of Glutose-15 contain s 15 grams of glucose (net weight of tube = 37.5 grams.), Routin e heparin (porcine) (1,000 units/mL) injection (CANCELED ) 0907 (Given - Provider: Mendy Schaffer)0918 (Given - Provider: Mendy Schaffer)0933 (Given - Provider: Mendy Schaffer)0952 (Given - Provider: Mendy Schaffer) ONCE PRN, Starting on Wed12/10/21 at 090 7, Until Wed12/10/21 at 1230, Cath (Intra-Procedure), Routine insulin regular (HumuLIN R,NovoLIN R) (100 unit/mL) in jection vial (CANCELED) 0919 (Given - Provider: Shirin Melgoza RN) ONCE PRN, Starting on Wed12/10/21 at 091 9, Until Wed12/10/21 at 1230, Intra- Operative (Intra-Procedure), Routine iohexoL (Omnipaque) (350 mg/mL) solution (CANCELED) 10 46 (Given - Provider: Vitaliy Nobles MD) ONCE PRN, Starting on Wed12/10/21 at 104 6, Until Wed12/10/21 at 1230, Cath (Intra-Procedure), Routine ipratropium-albuteroL (Duoneb) 0.5 mg-3 mg(2.5 mg base)/3 mL nebulizer solution 3 mL 0735 (Given - Provider: Emma Garcia RN )0805 (SEP Hold - Provider: Admin Adt - Reason: Transfer to a Procedural area)1230 (SEP Unhold - Provider: Admin Adt) 0844 (Given - Provider: Emma Garcia RN) 3 mL, Nebulization, EVERY 4 HOURS PRN, S tarting on Wed12/09/21 at 0509, Until Wed12/12/21 at 1312, Wheezing, Routine lidocaine (Xylocaine) 1% (10 mg/mL) injection 3 mg 080 5 (SEP Hold - Provider: Admin Adt - Reason: Transfer to a Procedural area)1230 (SEP Unhold - Provider: Admin Adt) 3 mg (0.3 mL), Subcutaneous, ONCE PRN, 1 dose, Starting on Wed12/08/21 at 1639, Until Wed12/12/21 at 1312, for discomfort with PIV insertion, Routine midazolam (pf) (Versed) (1 mg/mL) multi-dose injection (CANCELED) 0834 (Given - Provider: Mendy Schaffer)1000 (Given - Provider: Mendy Schaffer) ONCE PRN, Starting on Wed12/10/21 at 083 4, Until Wed12/10/21 at 1230, Cath (Intra-Procedure), Routine niCARdipine (Cardene) (100 mcg/mL) dilution (HOME CARE ASSOCIATE) (CANCELED) 1030 (Given - Provider: Vitaliy Nobles MD) ONCE PRN, Starting on Wed12/10/21 at 103 0, Until Wed12/10/21 at 1230, Intra- Operative (Intra-Procedure), Routine nitroGLYcerin (Nitrostat) disintegrating tablet 0.4 mg 0805 (SEP Hold - Provider: Admin Adt - Reason: Transfer to a Procedural area)1230 (SEP Unhold - Provider: Admin Adt) 0.4 mg, Sublingual, EVERY 5 MIN PRN, Sta rting on Wed12/08/21 at 1639, Until Wed12/12/21 at 1312, Chest pain, May repeat every 5 minutes for a total of three doses. Notify provider if chest pain not reli eved with nitroglycerin. Do not administ er nitroglycerin if the patient has received or taken phosphodiesterase (PDE-5) inhibitors such as sildenafil, tadalafil or vardenafil within the last 24 to 72 hours., Routine nitroGLYcerin 100 mcg/mL intracoronary dilution (CANCE LED) 0858 (Given - Provider: Rancho Woods MD)0902 (Given - Provider: Rancho Woods MD - Comment: Right radial) ONCE PRN, Starting on Wed12/10/21 at 085 8, Until Wed12/10/21 at 1230, Cath (Intra-Procedure), Routine prasugreL (Effient) tablet (CANCELED) 1013 (Given - Provider: Wellington Schaffer) ONCE PRN, Starting on Wed12/10/21 at 101 3, Until Wed12/10/21 at 1230, Cath (Intra-Procedure), Routine senna-docusate (Pericolace) 8.6-50 mg per tablet 1 tab let 0805 (SEP Hold - Provider: Admin Adt - Reason: Transfer to a Procedural area)1230 (SEP Unhold - Provider: Admin Adt) 1 tablet, Oral, 2 TIMES DAILY PRN, Start ing on Wed12/09/21 at 1628, Until Wed12/12/21 at 1312, Constipation, Routine sodium chloride 0.9 % (flush) (BD PosiFlush Normal Sean ine 0.9) flush 5-20 mL 0805 (SEP Hold - Provider: Admin Adt - Reason: Transfer to a Procedural area)1230 (SEP Unhold - Provider: Admin Adt) 5-20 mL, Intravenous, EVERY 1 MIN PRN, S tarting on Wed12/08/21 at 1639, Until Wed12/12/21 at 1312, flush, Flush pertains to all indwelling lines. Flush per protocol found in the job aid using the link provided on this medication record., Routine verapamiL (Isoptin) (2.5 mg/mL) injection (CANCELED) 0 857 (Given - Provider: Rancho Woods MD - Comment: Left radial)0902 (Given - Provider: Rancho Woods MD - Comment: Right radial) ONCE PRN, Starting on Wed12/10/21 at 085 7, Until Wed12/10/21 at 1230, Administer over 2 Minutes, Cath (Intra-Procedure) Linked Groups Order Group 1: POCT Fingerstick Glucose (CANCELED) Routine, EVERY 4 HOURS, First occurrence on Wed12/10/21 at 1600, Until Specified
Consider choosing FOUR TIMES A DAY BEFORE MEALS AND AT BEDTIME as frequency for: Patients who have a good hypogl ycemia awareness: -Patients who are eati ng meals during the day and sleeping at night -Patient who are otherwise stable And insulin lispro (HumaLOG;Admelog) (100 unit/mL) subcutaneous injection vial 1-6 UnitsJump to med 1-6 Units, Subcutaneous, EVERY 4 HOURS S CHEDULED, First dose (after last modification) on Wed12/10/21 at 1630, Until Discontinued
CORRECTION BOLUS [1-6 Units] Moderate Sliding Scal e (BG in mg/dL): Correction factor 20 (1 unit of insulin is expected to drop the glucose 20 mg/dL) BG 140 - 160 Give 1 unit BG 161 - 180 Give 2 units BG 181 - 200 Give 3 units BG 201 - 220 Give 4 units BG 221 - 240 Give 5 units BG greater than 240, give 6 units and recheck BG in 2 hours. - If recheck BG is LESS than 240, g delaney no insulin and resume schedule. &nbs p;- If recheck BG is GREATER than 240, give 6 units and repeat BG in 2 hours (no more than 3 times) & call for new insulin orders. &nbsp ;DO NOT hold if NPO, unless specifically directed to do so by written order. Per Blood Glucose Monitoring Policy, re-check a BG of > 240 mg/dL in 2 hours.
Routine Group 2: glucose (Glutose) 40% oral geLJump to med 15-30 g of glucose, Buccal, EVERY 30 MIN PRN, Starting on Wed12/08/21 at 1639, Until Wed12/12/21 at 1312, Low blood sugar
For BG 50-70 mg/dL: &nbs p;Oral treatment preferred: If able to d rink, give 120 mL Juice or Regular (not diet) soda OR If NPO, give 15 gram glucose 40% oral gel massaged into buccal mucosa OR if unconscious or uncooperative, gi ve 25 gram (250 mL) Dextrose 10% IV over 15 minutes per protocol OR, if no IV access, 1 mg Glucagon IM. For BG less than 50 mg/dL: Oral treatment pre ferred: If able to drink, give 240 mL Ju ice or Regular (not diet) soda OR If NPO, give 30 gram glucose 40% oral gel massaged in buccal mucosa OR if unconscious or uncooperative, give 25 gram (250 mL) De xtrose 10% IV over 15 minutes per protoc ol OR, if no IV access, 1 mg Glucagon IM. Recheck BG in 30 minutes. May repeat juice/soda, gel, dextrose or glucagon once per episode.&nb sp; For persistent hypoglycemia, consider longer-acting treatment for the duration of the active insulin. 1 tube of Glutose-15 contains 15 grams of glucose (net weight of tube = 37.5 grams.)
Routine Or dextrose 10% infusionJump to med 250 mL, at 1,000 mL/hr, Intravenous, VICENTE RY 30 MIN PRN, Starting on Wed12/08/21 at 1639, Until Wed12/12/21 at 1312
For BG 50-70 mg/dL: Oral t reatment preferred: If able to drink, gi ve 120 mL Juice or Regular (not diet) soda OR If NPO, give 15 gram glucose 40% oral gel massaged into buccal mucosa OR if unconscious or uncooperative, give 25 gr am (250 mL) Dextrose 10% IV over 15 isabel jennifer per protocol OR, if no IV access, 1 mg Glucagon IM. For BG less than 50 mg/dL: Oral treatment preferred: If able to drink, give 240 mL Juice or R egular (not diet) soda OR If NPO, give 30 gram glucose 40% oral gel massaged in buccal mucosa OR if unconscious or uncooperative, give 25 gram (250 mL) Dextrose 1 0% IV over 15 minutes per protocol OR, i f no IV access, 1 mg Glucagon IM. Recheck BG in 30 minutes. May repeat juice/soda, gel, dextrose or glucagon once per episode. & nbsp; For persistent hypoglycemia, con escrow agent longer-acting treatment for the duration of the active insulin.
Or glucagon (Glucagen) (1 mg/mL) injection solution 1 mgJump to med 1 mg, Intramuscular, EVERY 30 MIN PRN, S tarting on Wed12/08/21 at 1639, Until Wed12/12/21 at 1312, Low blood sugar
For BG 50-70 mg/dL: Oral treatment preferred: If able to drink, g delaney 120 mL Juice or Regular (not diet) soda OR If NPO, give 15 gram glucose 40% oral gel massaged into buccal mucosa OR if unconscious or uncooperative, give 25 g liseth (250 mL) Dextrose 10% IV over 15 min utes per protocol OR, if no IV access, 1 mg Glucagon IM. For BG less than 50 mg/dL: Oral treatment preferred: If able to drink, give 240 mL Juice or Regular (not diet) soda OR If NPO, give 30 gram glucose 40% oral gel massaged in buccal mucosa OR if unconscious or uncooperative, give 25 gram (250 mL) Dextrose 10% IV over 15 minutes per protocol OR, if no IV access, 1 mg Glucagon IM. Recheck BG in 30 minutes. May repeat juice/soda, gel, dextrose or glucagon once per episode. &amp ;nbsp; For persistent hypoglycemia, co nsider longer-acting treatment for the duration of the active insulin.
Routine documented in this encounter Care Teams Music Orchestrator Relationship Specialty Start Date End Date Lovely Vicente MD PCP - General 04/16/15 [address] [place] [address] documented as of this encounter
--- OUTSIDE RECORDS SUMMARY | 2022-02-06 13:31 | XMS_ITS | Encounter Summary ---
:1945 Author Organization [facility] [place] [address] Care Team Providers Name Role Phone Lovely iVcente MD Primary Care Provider Encounter Details Date Type Department Care Team Description 08/15/2018 Laboratory Lab 3L Barbara Wiseman systoli c heart failure; Appointment [facility] ASCVD (ar teriosclerotic cardiovascular disease) [place] [id number] Social History Tobacco Use Types Packs/Day Years [...] 02/19/2022 Office Visit Cardiology Liz Poole PA [facility] er Cardiology Dept [place], [place] [address] (Wo rk) 03/12/2022 Office Visit Cardiology Vitaliy Nobles MD [facility] ER CARDIOLOGY [place], [place] [address] (Wo rk) documented as of this encounter Procedures Procedure Name Priority Date/Time Associated Diagnosis Comme nts PRO-BRAIN STAT 08/15/2018 8:04 Chronic systolic heart Re sults for this NATRIURETIC PEPTIDE AM EST failure procedur e are in the results section. LIPID PANEL (REFLEX Routine 08/15/2018 8:04 ASCVD Resul ts for this DIRECT LDL) AM EST (arteriosclerotic procedure are in cardiovascular the results disease) section. BASIC METABOLIC STAT 08/15/2018 8:04 Chronic systolic heart Results for this PANEL (NON-FASTING) AM EST failure procedur e are in the results section. documented in this encounter Results (ABNORMAL) Basic Metabolic Panel (non-fasting) (08/15/2018 8:04 AM EST) P athologist Signature Glucose Lvl 116 65 - 199 [facility] mg/dL [facility] Comment: Diabetes: >=200 mg/dL plus symp toms BUN 21 (H) 10 - 20 mg/dL [facility] Creatinine 1.08 0.80 - 1.50 mg/dL [facility] Sodium 144 135 - 145 mmol/L [facility] Potassium 4.6 3.5 - 5.0 mmol/L [facility] Comment: Please note: ??Patients with WBC >100,00 0 may have falsely elevated Potassium levels. ??For accurate Potassium quantif ication in these patients send serum separator tube (gold top) for subsequent determinations. ??Contact the Clinical Chemistry Laboratory if there are any qu estions. Chloride 102 98 - 107 mmol/L [facility] CO2 27 22 - 31 mmol/L [facility] Anion Gap 15 5 - 15 mmol/L [facility] Calcium 9.0 8.5 - 10.5 mg/dL [facility] Estimated GFR 68 >=60 mL/min/1.73 m?? [facility] Comment: The eGFR was calculated using the CKD-EP I equation. As with all creatinine based estimates of kidney function, eGFR values calculated with the CKD-EPI equation are not accurate in patients wi th acute kidney failure, extremes of body mass or the acutely ill. http://Submitnet/DHnkf eGFR 79 >=60 mL/min/1.73 m?? [facility] Comment: The eGFR was calculated using the CKD-EP I equation. As with all creatinine based estimates of kidney function, eGFR values calculated with the CKD-EPI equation are not accurate in patients wi th acute kidney failure, extremes of body mass or the acutely ill. http://Submitnet/DHMCnkf Specimen Anatomical Collection Method Collection Time Receive d Time (Source) Location / / Volume Laterality Blood specimen 08/15/2018 8:04 AM 019 8:20 (specimen) EST AM EST Resulting Agency Comment Spec In Lab Danette A [place] STACIE CHEMISTRY ORDERABLES Performing Organization Address City/State/ZIP [place] [address] Lipid Panel (08/15/2018 8:04 AM EST) P athologist Signature Chol, Total 75 mg/dL [facility] Comment: Lower Risk: <200 mg/dL Average Risk: 200-239 mg/dL Higher Risk: >sf=491 mg/dL Triglycerides 185 mg/dL [facility] Comment: Average Risk/Lower Risk: <150 mg/dL Borderline High Risk: 150-199 mg/dL High Risk: 200-499 mg/dL Very High Risk: >bj=761 mg/dL HDL 32 mg/dL [facility] Comment: Males: ?? Higher Risk: <40 mg/dL Females: ?? HIgher Risk: <50 mg/dL LDL Cholesterol 6 mg/dL [facility] Comment: Lowest Risk: <100 mg/dL Lower Risk: 100-129 mg/dL Borderline High Risk: 130-159 mg/dL High Risk: 160-189 mg/dL Very High Risk: >ww=197 mg/dL Chol/HDL Ratio 2.3 ratio [facility] Lipid Interpretation See Note [facility] Comment: Lipid management should be guided by a p atient? s ASCVD risk, goals and preferences. ACC/AHA Guidelines recommend high intens ity statin if clinical ASCVD or LDL greater than or equal to 190 mg/dL. http://tinyurl.com/KXW-DDV-Uzyfzlxpi Adults aged 40-75 with LDL 70-189 mg/dL should have their 10 year ASCVD risk estimated with the ACC/AHA ASCVD risk es timator http://tools.acc.org/HEAUS-Mevs-Gqgatfcc r/ Statin should be discussed if risk [...] (Source) Location / / Volume Laterality Blood specimen 08/15/2018 8:04 AM 019 8:20 (specimen) EST AM EST Resulting Agency Comment Spec In Lab Danette Maxwell APRN CHEMISTRY ORDERABLES Performing Organization Address City/State/[place] [address] (ABNORMAL) pro-Brain Natriuretic Peptide (08/15/2018 8:04 AM EST) P athologist Signature ProBNP 1,797 (H) <=125 [facility] pg/mL [facility] Specimen Anatomical Collection Method Collection Time Receive d Time (Source) Location / / Volume Laterality Blood specimen 08/15/2018 8:04 AM 019 8:20 (specimen) EST AM EST Resulting Agency Comment Spec In Lab Danette Maxwell APRN CHEMISTRY ORDERABLES Performing Organization Address City/State/[place] [address] documented in this encounter Visit Diagnoses Diagnosis Chronic systolic heart failure ASCVD (arteriosclerotic cardiovascular d isease) Unspecified cardiovascular disease documented in this encounter Care Teams Cage Maker Machine Relationship Specialty Start Date End Date Lovely Vicente MD PCP - General 04/16/[address] [place] [address] documented as of this encounter
--- OUTSIDE RECORDS SUMMARY | 2022-02-06 13:31 | XMS_ITS | Encounter Summary ---
:1945 Author Organization [facility] [address] Care Team Providers Name Role Phone Lovely Vicente MD Primary Care Provider Encounter Details Date Type Department Care Team Description 03/20/2021 Ancillary Procedure Radiology Library at [place] [address] [place] [address] [phone] Social History Tobacco Use Types Packs/Day Years [...] 02/19/2022 Office Visit Cardiology Liz Poole PA [facility] er Cardiology Dept [place], [place] [address] (Wo rk) 03/12/2022 Office Visit Cardiology Vitaliy Nobles MD [facility] CARDIOLOGY [place], [place] [address] (Wo rk) documented as of this encounter Procedures Procedure Name Priority Date/Time Associated Diagnosis Comme nts FILM LIBRARY Routine 03/20/2021 5:24 PM Results f or this STORAGE ONLY CT EDT procedure ar e in [facility] the results section. documented in this encounter Results Film Library- Storage Only CT [facility] (03/20/2021 5:24 PM EDT) Specimen (Source) Anatomical Location Collection Method / Collectio n Time Received Time / Laterality Volume Narrative RONNIE MAN - 03/20/2021 5:24 PM EDT This exam is auto-finalizing. It's purpo se is for storage only. Hugo Gaston MD IMG FILM LIBRARY ORDERABLES Performing Organization Address City/State/ZIP Code Phon e Number [place], [place] documented in this encounter Visit Diagnoses Not on filedocumented in this encounter Care Teams Fingernail Sculptor Relationship Specialty Start Date End Date Lovely Vicente MD PCP - General 04/16/[address] [place] [address] documented as of this encounter
--- OUTSIDE RECORDS SUMMARY | 2022-02-06 13:31 | XMS_ITS | Encounter Summary ---
:1945 Author Organization [facility] [place] [address] Care Team Providers Name Role Phone Lovely Vicente MD Primary Care Provider Encounter Details Date Type Department Care Team Description 08/26/2018 Transcribe Orders Laboratory Lovely Vicente, Deferred diagnosis [facility] on axis I [address] [address] [place], [place] [phone] Social History Tobacco Use Types Packs/Day Years [...] 02/19/2022 Office Visit Cardiology Liz Poole PA [facility] er Cardiology Dept [place], [place] [address] (Wo rk) 03/12/2022 Office Visit Cardiology Vitaliy Nobles MD [facility] ER CARDIOLOGY [place], [place] [address] (Wo rk) documented as of this encounter Visit Diagnoses Diagnosis Deferred diagnosis on axis I Other unknown and unspecified cause of m orbidity or mortality documented in this encounter Care Teams Servomechanism Assembler Relationship Specialty Start Date End Date Lovely Vicente MD PCP - General 04/16/[address] [place] [address] documented as of this encounter
--- OUTSIDE RECORDS SUMMARY | 2022-02-06 13:31 | XMS_ITS | Encounter Summary ---
:1945 Author Organization [facility] Address [address] [place] [address] Care Team Providers Name Role Phone Lovely Vicente MD Primary Care Provider Reason for Referral Diagnostic Test (Routine) - Closed Specialty Diagnoses / Procedures Referred By Contact Refer red To Contact Cardiology Diagnoses Chronic systolic heart failure Danette Maxwell APRN [facility] Non-Inv Card Lab Procedures Echocardiogram Transthoracic(Leb) [facility] [address] [place] [address] [place] [address] Referral ID Status Reason Start Date Expiration Date Visits V isits Requested Authorized [id number] Closed Specialty 07/17/2019 09/14/2019 1 1 Service Requested Encounter Details Date Type Department Care Team Description 01/16/2019 Office [address]iology at [facility] Danette Maxwell, Chronic systolic heart failu re; [facility] STACIE Cardiomyopathy, ischemic; Drive [facility] Hx of thyroid cancer; [place], [place] DR [place] (arteriosclerotic heart disease); [phone] CARDIOLOGY MARIA VICTORIA (obstructive sleep apnea) on CPAP [phone] [place], [place] [address] (Wo rk) Social History Tobacco Use Types [...] Sign Reading Time Taken Comments Blood Pressure 122/70 01/16/2019 8:29 AM EDT Pulse 67 01/16/2019 8:29 AM EDT Temperature - - Respiratory Rate - - Oxygen Saturation 96% 01/16/2019 8:29 AM EDT Inhaled Oxygen Concentration - - Weight 87.3 kg (192 lb 8 oz) 01/16/2019 8:29 AM EDT Height 172.7 cm (5' 8) 01/16/2019 8:29 AM EDT Body Mass Index 29.27 01/16/2019 8:29 AM EDT documented in this encounter Progress Notes Danette Maxwell APRN - 01/16/2019 8:40 AM EDT Images from the original note were not included. ID and CC: Don Fatima is a 72 y.o. male presenting for routine f/u regarding ASCVD, ischemic cardiomyopathy ?? HPI: Mr. Fatima is a 72 year old male w/ a h/o MARIA VICTORIA (not using CPAP), DM2, COPD, HTN, HLD, GERD, and hyperthyroid who presented on 07/05/2107 with late STEMI. Admitted to cardiology service on 07/05/2107 with STEMI (transmural infarction with Q-waves in his anterior wall). Echocardiogram showed EF 30%. Cardiac cath showed severe diffuse disease. Post-cath he required an IABP. He was stabilized and diuresed. 07/06/2017 he was taken to the OR for a 3 vessel CABG (THOMPSON->LAD, Seq SVG->OM1->D1) POD # 2 he was noted to have atrial fibrillation and started on Amiodarone and he converted to NSR. He was started on coumadin for anticoagulation. Discharge weight: 200 lb Last visit: 08/15/2018. No changes were made. He was feeling good. Interim events: No ED visits or hospitalizations Today: Feels pretty good Breathing is good Walked from front entrance to 3L to 4A slowly without stopping Denies chest pain No lightheadedness or dizziness No pre-syncope or syncope No LE edema. No abdominal distention Numbness bilateral LE (chronic) Sleeping in his normal pattern. Using CPAP. No PND or orthopnea No palpitations Patient Active Problem List ?? Diagnosis ??? [...] Melanoma ? Your Medications Accurate as of 01/16/19 9:27 AM. If you have any questions, ask your nurse or doctor. Continued medications with new dosing Dose Details furosemide 20 mg Tab Commonly known as: LASIX Take 2 tablets by mouth daily. What changed: how much to take 40 mg Quantity: 60 tablet Refills: 3 insulin glargine Soln Inject 15 Units subcutaneously nightly. What changed: how much to take 15 Units Quantity: 10 mL Refills: 12 insulin lispro Soln Commonly known as: HumaLOG Inject 11 Units subcutaneously 3 times daily (with meals). What changed: how much to take 11 Units Quantity: 10 mL Refills: 12 Continued medications, unchanged Dose Details ACCU-CHEK TERA PLUS TEST STRP Strp 2-3 times daily Generic drug: blood sugar diagnostic strips Quantity: 100 each Refills: 1 atorvastatin 40 mg Tab Commonly known as: LIPITOR Take 1 tablet by mouth every evening. 40 mg Quantity: 90 tablet Refills: 3 BD ULTRA-FINE MINI PEN NEEDLE 31 gauge x 3/16 Ndle 1 each by Other route 4 times daily. Generic drug: insulin needles (disposable) 1 each Refills: 0 clobetasol 0.05 % Soln Commonly known as: TEMOVATE Apply 1 Application topically 2 times daily. 1 Application Refills: 1 levothyroxine 175 mcg Tab Commonly known as: SYNTHROID Take 1 tablet by mouth daily. 1 tablet daily 6 days per week, and 2 tablets 1 day per week. 175 mcg Quantity: 102 tablet Refills: 3 lisinopril 2.5 mg Tab Commonly known as: PRINIVIL;ZESTRIL Take 2.5 mg by mouth daily. 2.5 mg Refills: 0 Magnesium Oxide 500 mg Cap Take 500 mg by mouth 2 times daily. 500 mg Refills: 0 metFORMIN 850 mg Tab Commonly known as: GLUCOPHAGE Take 1 tablet by mouth 2 times daily (with meals). 850 mg Quantity: 60 tablet Refills: 12 metoprolol succinate 25 mg Tablet sr Commonly known as: TOPROL-XL Take 25 mg by mouth daily. 25 mg Refills: 0 TURMERIC ORAL Take 500 mg by mouth daily. 500 mg Refills: 0 warfarin 2.5 mg Tab Commonly known as: COUMADIN Take 1 tablet by mouth daily. 2.5 mg Refills: 0 STOPPED Medications aspirin 81 mg Tbec Stopped by: Danette Maxwell APRN vitamin C 500 mg Tab Generic drug: ascorbic acid Stopped by: Danette Maxwell APRN Allergies: Review of patient's allergies indicates no known allergies. ?? Heart Failure Management: Yes/No No?/Discontinued/Why Beta cahdwick Yes Metoprolol tartrate 25 mg bid KIRSTIN/ARB Yes Lisinopril 10 mg daily Spironolactone No Hx of K+ > 5.0. EF > 40% AFIB? Post-op ?? Anticoagulated Yes Coumadin Device No EF now 30-35% ? Physical Exam: BP 122/70 Pulse 67 Ht 172.7 cm (5' 8) Wt 87.3 kg (192 lb 8 oz) SpO2 96% BMI 29.27 kg/m? General: NAD. HEENT: JVD at level of clavicles Lungs: Clear to A+P Cor: RR, normal S1, S2. PMI not displaced. No murmur or gallop. M/S: Able to walk now without issue Abd: soft, no L/S/K enlargement or bruits. Ext: Trace edema bilateral LE. Skin is tense. Arterial rubor present. Warm to feet? Lab data: Recent Labs 01/16/19 0749 NA 145 K 4.7 CL 106 CO2 26 BUN 25* CREATININE 1.08 GLUCOSE 105 ProBNP Date Value Ref Range Status 01/16/2019 780 (H) <=125 pg/mL Final 08/15/2018 1,797 (H) <=125 pg/mL Final 04/18/2018 2,199 (H) <=125 pg/mL Final Lab Results Component Value Date ?? WBC 15.0 (H) 07/27/2017 ?? RBC 3.59 (L) 07/27/2017 ?? HGB 10.3 (L) 07/27/2017 ?? HCT 32.6 (L) 07/27/2017 ?? MCV 90.8 07/27/2017 ?? MCH 28.7 07/27/2017 ?? MCHC 31.6 (L) 07/27/2017 ?? PLATELET 322 07/27/2017 ?? RDWCV 14.7 (H) 07/27/2017 ? Lipid Panel Lab Results Component Value Date CHLPL 75 08/15/2018 HDL 32 08/15/2018 CHOLHDL 2.3 08/15/2018 TRIG 185 08/15/2018 LDLCHOL 6 08/15/2018 Cardiac studies: 08/15/2017 Echocardiogram: BP: 157/85 ?? SUMMARY: ?? 1. The left ventricle is mildly dilated. Global left ventricular systolic function is moderately reduced. The visually estimated left ventricular ejection fraction is 30-35%.There are left ventricular segmental wall motion abnormalities present, as shown in the diagram below. 2. The right ventricle is probably normal in size. Right ventricular global systolic function is probably normal. 3. There is no hemodynamically significant valve disease. 4. When compared side by side with study dated 09/2017, there has been a decline in global LV function (LVEF45%-->30-35%) 5. See remainder of report for additional findings. ?? Assessment: Mr. Fatima appears well compensated today and without symptoms of heart failure. A check on his lipid panel shows LDL of 6. I discussed this with Dr. Cuevas who is a Lipid Specialist. I will repeat the lipid panel and if still low, will cut the dose to 20 mg daily from 40 mg daily. I willmake no changes to his medications today. 1. ASCVD S/p CABG, THOMPSON->LAD, Seq SVG->OM1->D1 (07/07/2017) Continue BB and statin PCP stopped ASA due to bruising Stable No chest pain ?? 2. Ischemic cardiomyopathy EF was 45%. Echo in July shows EF down 30-35% On BB and KIRSTIN-I No spironolactone as K+ has been > 5.0 ?? 3. Systolic heart failure EF 30-35% today ACC/AHA stage C, NYHA FC II-III Continue Lasix 20 mg daily ?? 4. HTN BP 127/70 Lisinopril 2.5 mg daily ?? 5. Hx of hyperkalemia K+ 4.6 today 6. Post-op atrial fibrillation [id number] (CHF, HTN, DM, vascular disease, thromboembolism) Amiodarone discontinued Continue coumadin INR managed by PCP. 2.1 today 7. PAD 08/06/2017: Right 1st, 2nd, 3rd toe amputation 08/11/2017: Left??femoral arterial access, RLE??angiogram, Balloon angioplasty of R PT with Eleazar 2.5 x 80 10/25/2017: right popliteal-pedal bypass at [facility] 8. Hypothyrodism S/p thyroidectomy for goiter Continue Levothyroxine ?? Plan: 1. A review of the active management and working diagnosis(es) was conducted. 2. The patient's medication list was updated and new Rxs given as needed. Consider Entresto if EF remains < 40% 3. Question were answered regarding: Lab results and treatment plan going forward. Discussed the need to call the HF team if increased SOB, LE edema or difficulty breathing. 4. The following labs or other testing advised: proBNP, BMP, echocardiogram at next visit 5. Repeat echo in July, if still < 35%, consider EP evaluation for ICD 5. Heart Failure Clinic follow up scheduled for: 6 months Danette Maxwell APRN 01/16/2019 documented in this encounter Plan of Treatment Upcoming Encounters Date Type Specialty Care Team Description 02/19/2022 Laboratory Appointment Lab 02/19/2022 Office Visit Cardiology Liz Poole PA [address] Cardiology Dept [place], [place] [address] (Wo rk) 03/12/2022 Office Visit Cardiology Vitaliy Nobles MD [facility] CARDIOLOGY [place], [place] [address] (Wo rk) documented as of this encounter Results ECHOCARDIOGRAM COMPLETE W CONTRAST (07/28/2019 8:19 AM EST) P athologist Signature EF 40 [facility] Specimen (Source) Anatomical Location Collection Method / Collectio n Time Received Time / Laterality Volume 07/28/2019 Narrative [facility] - 07/28/2019 8:38 AM EST Procedure: ?Transthoracic Echocardiogram Patient: ?NATALYA Mccollum ? (Age): 1945(74y) Med Rec#: ? [id number] ?Sex: ?M ? Site Loc: ? [facility] ?Ht / Wt: ??172(cm)/81(kg) Pt. Loc: ?Echo Lab ?BSA: ?1.94 Study Date: ?? 07/28/2019 ?Pt. Type: Outpatient Tape: ? Referring: MARY ELLEN Reading: Ifeanyi Truong ([id number]) Dance Director: Fadumo Flanagan RDCS, REGINA Diagnosis: *Chronic systolic (congestive) heart fa ilure (I50.22) Indication: ?? CHF BP: ? 130/47 HR: ? 70 SUMMARY: 1. The left ventricle is mildly dilated. ??Left ventricular wall thickness is normal. ??Global left ventr icular systolic function is mildly reduced. ??Visually estimated lve f is 40-45%. ??There are left ventricular segmental wall motion abnorm alities present, as shown in the diagram below. 2. The right ventricle is normal in size . ??Right ventricular global systolic function is low normal. 3. There is mild (1+/4+) mitral regurgit ation present. Findings ? : Study Quality: ? Adequate Left Ventricle: ? The left ventricle is mildly dilated. ?Left ventricular wall thickness is normal. ?There is no evidence of LVOT obstr uction. ?No ventricular septal defect is vi sualized. ?Global left ventricular systolic f unction is mildly reduced. ?The visually estimated left ventri cular ejection fraction is 40-45% ?There are left ventricular segment al wall motion abnormalities present, as shown in the diagram below. ?The ??mid anterior, mid inferior, and ??apical anterior wall segments are hypokinetic (score 2). ?The ??basal inferior, and ??apical inferior wall segments are akinetic (score 3). ?Overall wallmotion score index is ??1.44 ?No thrombus is visualized within t he left ventricle. Left Atrium: ? The left atrium is no rmal in size. 34 ml/m2. ?No atrial septal defect is visuali zed. Right Ventricle: ? The right ventric le is normal in size. ?Right ventricular global systolic function is low normal. ?Pulmonary artery hypertension coul d not be assessed due to inadequate tricuspid regurgitation jet. ?The estimated right atrial pressur e is ( ) mmHg. Right Atrium: ? The right atrium is mildly dilated. Aortic Valve: ? The aortic valve is tricuspid. ?The aortic valve leaflets are mild ly thickened. ?Systolic excursion of the aortic v alve is normal. ?There is aortic annular calcificat ion. ?There is no evidence of aortic collette ve stenosis. ?There is no evidence of aortic reg urgitation. Mitral Valve: ? The mitral valve yoan flets are mildly thickened. ?There is mitral annular calcificat ion. ?There is mild (1+/4+) mitral regur gitation present. Tricuspid Valve: ? The tricuspid collette ve is not well visualized. ?The tricuspid valve is probably no rmal. ?There is no evidence of tricuspid valve regurgitation present. Pulmonic Valve: ? The pulmonic valve is probably normal. ?There is mild (1+/4+) pulmonic reg urgitation present. Pericardium: ? The pericardium appea rs normal and there is no evidence of a pericardial effusion. Aorta: ? There is mild dilatation of the aortic root. 4.0 cm. ?The ascending aorta is normal in s ize. Pulmonary Artery: ? The main pulmona ry artery is probably normal in size. Venous: ? The inferior vena cava gera ears normal in size. ?There is a greater than 50% respir atory change in the inferior vena cava dimension. Misc: ? There is no hemodynamically significant valve disease. ?See remainder of report for additi onal findings. ?Two-dimensional echo, spectral Dop pler and color Doppler performed. ?Optison contrast (one 3 ml vial) w as used to enhance endocardial definition. Excess contrast was discarde d. Chambers 2D ?Value ?Units (Range) ? IVSd (2D) ? 1 ?cm ? LVPWd (2D) ?1 ?cm ? IVS:LVPW ratio (2D) 1 ?ratio ? RWT (2D) ?0.3 ?ratio ? RWT PW (2D) ? 0.3 ?ratio ? LVIDd (2D) ?5.8 ?cm ? LVIDs (2D) ?4.5 ?cm ? LVIDd (2D) index ?3 ?cm/m2 ? LVIDs (2D) index ?2.3 ?cm/m2 ? LV FS (2D) ?22 ? % ? EF Teichholz (2D) ?? 44 ? % ? Ao root diameter (2D4 ?cm (2.1 - 3.6) ? Ascending Ao ?3.5 ?cm (2 - 3.5) ? Volumes/Mass ?Value ?Units (Range) ? LA Area 4 CH ?22 ? cm2 (<21) ? LA ESV BP (A/L) inde35 ? ml/m2 ? RA AREA 4CH ? 21 ? cm2 ? LA ESV BP (MOD) inde34 ? ml/m2 ? LV ESV SP 4CH (MOD) 97.2 ? ml ? LV ESV SP 2CH (MOD) 91.1 ? ml ? LV EDV BP ? 179.8 ?ml ? LV ESV BP ? 94.8 ? ml ? LV EDV BP index ? 92.7 ? ml/m2 ? LV ESV BP index ? 48.9 ? ml/m2 ? BP EF (MOD) ? 47 ? % ? LV mass (2D) ?236 ?g ? LV mass (2D) index ??121.7 ?g/m2 ? Diastolic/Systolic Function ?Value ?Units (Range) ? MV E-wave Vmax ?1 ?m/sec ? MV deceleration evoq923.5 ? msec ? MV A-wave Vmax ?1 ?m/sec ? MV E:A ratio ?1.1 ?ratio ? LV septal e' Vmax ?? 0.1 ?m/sec ? LV lateral e' Vmax ??0.1 ?m/sec ? LV average e' Vmax ??0.1 ?m/sec ? LV E:e' septal ratio20.3 ? ratio ? LV E:e' lateral rati12.7 ? ratio ? LV average E:e' rati16.9 ? ratio ? Aortic Valve ?Value ?Units (Range) ? AV Vmax ? 1.3 ?m/sec ? AV peak gradient ?6.4 ?mmHg ? LVOT Vmax ? 0.9 ?m/sec ? LVOT peak gradient ??3.3 ?mmHg ? DOI (Vmax) ?0.7 ?ratio ? Pulmonic Valve/Qp:Qs ?Value ?Units (Range) ? NM end-diastolic Vma1.1 ?m/sec ? Wall Motion: Segment Name ?Rest ? Base-Anteroseptal ?? Normal ? Base-Anterior ? Normal ? Base-Anterolateral ??Normal ? Base-Posterolateral Normal ? Base-Inferior ? Akinetic ? Base-Inferoseptal ?? Normal ? Mid-Anteroseptal ?Normal ? Mid-Anterior ?Hypokinetic ? Mid-Anterolateral ?? Normal ? Mid-Posterolateral ??Normal ? Mid-Inferior ?Hypokinetic ? Mid-Inferoseptal ?Normal ? [place]-Septal ? Normal ? [place]-Anterior ? Hypokinetic ? [place]-Lateral ?Normal ? [place]-Inferior ? Akinetic ? [place]-Tip ?Hypokinetic ? This report has been electronically sign ed by: _ Ifeanyi Truong M.D. ? 07/28/2019 0 8:38:01 Images reviewed [facility] Procedure Note Ifeanyi Truong MD - 07/28/2019Formatt ing of this note might be different from the original. Procedure: Transthoracic Echocardiogram Patient: NATALYA MCBRIDE(Age): [birth year]74y) Med Rec#: [id number] Sex: M Site Loc: [facility] Ht / Wt: 172(cm)/81(kg) Pt. Loc: Echo Lab BSA: 1.94 Study Date: 07/28/2019 Pt. Type: Outpati ent Tape: Referring: MARY ELLEN Reading: Ifeanyi Truong ([id number]) Dance Director: Fadumo Flanagan RDCS, FASE Diagnosis: *Chronic systolic (congestive) heart fa ilure (I50.22) Indication: CHF BP: 130/47 HR: 70 SUMMARY: 1. The left ventricle is mildly dilated. Left ventricular wall thickness is normal. Global left ventric ular systolic function is mildly reduced. Visually estimated lvef is 40-45%. There are left ventricular segmental wall motion abnorm alities present, as shown in the diagram below. 2. The right ventricle is normal in size . Right ventricular global systolic function is low normal. 3. There is mild (1+/4+) mitral regurgit ation present. Findings : Study Quality: Adequate Left Ventricle: The left ventricle is mi ldly dilated. Left ventricular wall thickness is norm al. There is no evidence of LVOT obstructio n. No ventricular septal defect is visuali zed. Global left ventricular systolic functi on is mildly reduced. The visually estimated left ventricular ejection fraction is 40-45% There are left ventricular segmental wa ll motion abnormalities present, as shown in the diagram below. The mid anterior, mid inferior, and api nusrat anterior wall segments are hypokinetic (score 2). The basal inferior, and apical inferior wall segments are akinetic (score 3). Overall wallmotion score index is 1.44 No thrombus is visualized within the le ft ventricle. Left Atrium: The left atrium is normal i n size. 34 ml/m2. No atrial septal defect is visualized. Right Ventricle: The right ventricle is normal in size. Right ventricular global systolic funct ion is low normal. Pulmonary artery hypertension could not be assessed due to inadequate tricuspid regurgitation jet. The estimated right atrial pressure is ( ) mmHg. Right Atrium: The right atrium is mildly dilated. Aortic Valve: The aortic valve is tricus pid. The aortic valve leaflets are mildly th ickened. Systolic excursion of the aortic valve is normal. There is aortic annular calcification. There is no evidence of aortic valve st enosis. There is no evidence of aortic regurgit ation. Mitral Valve: The mitral valve leaflets are mildly thickened. There is mitral annular calcification. There is mild (1+/4+) mitral regurgitat ion present. Tricuspid Valve: The tricuspid valve is not well visualized. The tricuspid valve is probably normal. There is no evidence of tricuspid valve regurgitation present. Pulmonic Valve: The pulmonic valve is pr obably normal. There is mild (1+/4+) pulmonic regurgit ation present. Pericardium: The pericardium appears nor mal and there is no evidence of a pericardial effusion. Aorta: There is mild dilatation of the a ortic root. 4.0 cm. The ascending aorta is normal in size. Pulmonary Artery: The main pulmonary art anila is probably normal in size. Venous: The inferior vena cava appears n ormal in size. There is a greater than 50% respiratory change in the inferior vena cava dimension. Misc: There is no hemodynamically signif icant valve disease. See remainder of report for additional findings. Two-dimensional echo, spectral Doppler and color Doppler performed. Optison contrast (one 3 ml vial) was us ed to enhance endocardial definition. Excess contrast was discarde d. Chambers 2D Value Units (Range) IVSd (2D) 1 cm LVPWd (2D) 1 cm IVS:LVPW ratio (2D) 1 ratio RWT (2D) 0.3 ratio RWT PW (2D) 0.3 ratio LVIDd (2D) 5.8 cm LVIDs (2D) 4.5 cm LVIDd (2D) index 3 cm/m2 LVIDs (2D) index 2.3 cm/m2 LV FS (2D) 22 % EF Teichholz (2D) 44 % Ao root diameter (2D4 cm (2.1 - 3.6) Ascending Ao 3.5 cm (2 - 3.5) Volumes/Mass Value Units (Range) LA Area 4 CH 22 cm2 (<21) LA ESV BP (A/L) inde35 ml/m2 RA AREA 4CH 21 cm2 LA ESV BP (MOD) inde34 ml/m2 LV ESV SP 4CH (MOD) 97.2 ml LV ESV SP 2CH (MOD) 91.1 ml LV EDV BP 179.8 ml LV ESV BP 94.8 ml LV EDV BP index 92.7 ml/m2 LV ESV BP index 48.9 ml/m2 BP EF (MOD) 47 % LV mass (2D) 236 g LV mass (2D) index 121.7 g/m2 Diastolic/Systolic Function Value Units (Range) MV E-wave Vmax 1 m/sec MV deceleration lwdn191.5 msec MV A-wave Vmax 1 m/sec MV E:A ratio 1.1 ratio LV septal e' Vmax 0.1 m/sec LV lateral e' Vmax 0.1 m/sec LV average e' Vmax 0.1 m/sec LV E:e' septal ratio20.3 ratio LV E:e' lateral rati12.7 ratio LV average E:e' rati16.9 ratio Aortic Valve Value Units (Range) AV Vmax 1.3 m/sec AV peak gradient 6.4 mmHg LVOT Vmax 0.9 m/sec LVOT peak gradient 3.3 mmHg DOI (Vmax) 0.7 ratio Pulmonic Valve/Qp:Qs Value Units (Range) NM end-diastolic Vma1.1 m/sec Wall Motion: Segment Name Rest Base-Anteroseptal Normal Base-Anterior Normal Base-Anterolateral Normal Base-Posterolateral Normal Base-Inferior Akinetic Base-Inferoseptal Normal Mid-Anteroseptal Normal Mid-Anterior Hypokinetic Mid-Anterolateral Normal Mid-Posterolateral Normal Mid-Inferior Hypokinetic Mid-Inferoseptal Normal [place]-Septal Normal [place]-Anterior Hypokinetic [place]-Lateral Normal [place]-Inferior Akinetic [place]-Tip Hypokinetic This report has been electronically sign ed by: _ Ifeanyi Truong M.D. 07/28/2019 08:38:0 1 Images reviewed and interpretation verif iewanda [facility] Cardiac Ultrasound Laboratory Danette Maxwell APRN ECHO ORDERABLES Performing Organization Address City/State/ZIP Code Phon e Number [facility] (ABNORMAL) Basic Metabolic Panel (non-fasting) (01/16/2019 7:49 AM EDT) P athologist Signature Glucose Lvl 105 65 - 199 [facility] mg/dL [facility] Comment: Diabetes: >=200 mg/dL plus symp toms BUN 25 (H) 10 - 20 mg/dL [facility] Creatinine 1.08 0.80 - 1.50 mg/dL [facility] Sodium 145 135 - 145 mmol/L [facility] Potassium 4.7 3.5 - 5.0 mmol/L [facility] Comment: Please note: ??Patients with WBC >100,00 0 may have falsely elevated Potassium levels. ??For accurate Potassium quantif ication in these patients send serum separator tube (gold top) for subsequent determinations. ??Contact the Clinical Chemistry Laboratory if there are any qu estions. Chloride 106 98 - 107 mmol/L [facility] CO2 26 22 - 31 mmol/L [facility] Anion Gap 13 5 - 15 mmol/L [facility] Calcium 9.2 8.5 - 10.5 mg/dL [facility] Estimated GFR 68 >=60 mL/min/1.73 m?? [facility] Comment: The eGFR was calculated using the CKD-EP I equation. As with all creatinine based estimates of kidney function, eGFR values calculated with the CKD-EPI equation are not accurate in patients wi th acute kidney failure, extremes of body mass or the acutely ill. http://fypio/VendorShopnkf eGFR 79 >=60 mL/min/1.73 m?? [facility] Comment: The eGFR was calculated using the CKD-EP I equation. As with all creatinine based estimates of kidney function, eGFR values calculated with the CKD-EPI equation are not accurate in patients wi th acute kidney failure, extremes of body mass or the acutely ill. [email or web address]://fypio/DHnkf Specimen Anatomical Collection Method Collection Time Receive d Time (Source) Location / / Volume Laterality Blood specimen 01/16/2019 7:49 AM 019 7:55 (specimen) EDT AM EDT Resulting Agency Comment Spec In Lab Danette Maxwell APRN CHEMISTRY ORDERABLES Performing Organization Address City/State/[place] [address] (ABNORMAL) pro-Brain Natriuretic Peptide (01/16/2019 7:49 AM EDT) P athologist Signature ProBNP 780 (H) <=125 pg/mL [facility] Specimen Anatomical Collection Method Collection Time Receive d Time (Source) Location / / Volume Laterality Blood specimen 01/16/2019 7:49 AM 019 7:55 (specimen) EDT AM EDT Resulting Agency Comment Spec In Lab Danette Maxwell APRN CHEMISTRY ORDERABLES Performing Organization Address City/State/ZIP Code Phon e Number [place] [address] documented in this encounter Visit Diagnoses Diagnosis Chronic systolic heart failure Cardiomyopathy, ischemic Other specified forms of chronic ischemi c heart disease Hx of thyroid cancer Personal history of malignant neoplasm o f thyroid ASHD (arteriosclerotic heart disease) Coronary atherosclerosis of unspecified type of vessel, [place] or graft MARIA VICTORIA (obstructive sleep apnea) on CPAP Obstructive sleep apnea (adult) (pediatr ic) Chronic systolic heart failure documented in this encounter Care Teams Bead Forming Machine Set Up Operator Relationship Specialty Start Date End Date Lovely Vicente MD PCP - General 04/16/[address] [place] [address] documented as of this encounter
--- OUTSIDE RECORDS SUMMARY | 2022-02-06 13:31 | XMS_ITS | Encounter Summary ---
:1945 Author Organization [facility] Address [address] [place] [address] Care Team Providers Name Role Phone Lovely Vicente MD Primary Care Provider Reason for Referral Diagnostic Test (Routine) - Specialty Diagnoses / Procedures Referred By Contact Refer red To Contact Cardiology Diagnoses Chronic systolic heart failure Danette Maxwell APRN [facility] Non-Inv Card Lab Procedures Echocardiogram Transthoracic(Leb) [facility] [place] [address] [place] [address] Referral ID Status Reason Start Date Expiration Visits Visits Date Requested Authorized [id number] Specialty 08/15/2018 08/15/2018 1 1 Service Requested Encounter Details Date Type Department Care Team Description 04/18/2018 Office Visit Cardiology at [facility] Danette Maxwell Chronic systolic heart failu re; [facility] STACIE Gomes On amiodarone therapy; [facility] Ischemic cardiomyopathy; [place], [place] DR ONOFRE (arteriosclerotic cardiovascular d isease) [id number] CARDIOLOGY [phone] [place], [place] [address] Social History Tobacco Use Types Packs/Day Years Used Date Former Smoker Cigarettes 3 5 Quit: 07/26/18 69 Smokeless Tobacco: Never Used Alcohol Use Standard Drinks/Week Comments No 0 (1 standard drink = 0.6 oz pure alcoho l) Sex Assigned at Date Recorded Not on file documented as of this encounter Last Filed Vital Signs Vital Sign Reading Time Taken Comments Blood Pressure 140/72 04/18/2018 10:51 AM EDT Pulse 63 04/18/2018 10:51 AM EDT Temperature - - Respiratory Rate - - Oxygen Saturation 99% 04/18/2018 10:51 AM EDT Inhaled Oxygen Concentration - - Weight 81.6 kg (179 lb 14.4 oz) 04/18/2018 10:51 AM EDT Height 172.7 cm (5' 8) 04/18/2018 10:51 AM EDT Body Mass Index 27.35 04/18/2018 10:51 AM EDT documented in this encounter Progress Notes Danette Maxwell, HEALTH PHYSICS TECHNICIAN - 04/18/2018 10:40 AM EDT ID and CC: Don Fatima is a [...] anticoagulation. Discharge weight: 200 lb Last visit: 11/29/2017. He was doing well. No changes to his medication regime. Interim events: No ED visits or hospitalizations Today: He is feeling good Back to work Has physical therapy twice/week Very little LE swelling. No abdominal distention Weight is stable Very little SOB, only if he does physical labor. No SOB with his exercises at PT Sleeping in his usual pattern. No PND or orthopnea, No head of bed elevation, 2 pillows Denies lightheadedness or dizziness Denies pre-syncope or syncope Patient Active Problem List ?? Diagnosis ??? [...] chest wall ??? Melanoma ? Your Medications These changes are accurate as of 04/18/18 11:05 AM. If you have any questions, ask [...] diagnostic strips Quantity: 100 each Refills: 1 AMIOdarone 200 mg Tab Commonly known as: CORDARONE; PACERONE Take 1 tablet by mouth daily. 200 mg Refills: 0 aspirin 81 mg Tbec Take 81 mg by mouth daily. 81 mg Refills: 0 atorvastatin 40 mg Tab Commonly known as: LIPITOR Take 1 tablet by mouth every evening. 40 mg Quantity: 90 tablet Refills: 3 BD ULTRA-FINE MINI PEN NEEDLE 31 gauge x /16 Ndle 1 each by Other route 4 times daily. Generic drug: insulin needles (disposable) 1 each Refills: 0 clobetasol 0.05 % Soln Commonly known as: TEMOVATE Apply 1 Application topically 2 times daily. 1 Application Refills: 1 gabapentin 100 mg Cap Commonly known as: NEURONTIN Take 300 mg by mouth daily. 300 mg Refills: 0 levothyroxine 175 mcg Tab Commonly known as: [...] 2 times daily. 500 mg Refills: 0 melatonin 3 mg Tab Take 2 tablets by mouth nightly. 6 mg Refills: 0 metFORMIN 850 mg Tab Commonly known as: GLUCOPHAGE Take 1 tablet by mouth 2 times daily (with meals). 850 mg Quantity: 60 tablet Refills: 12 metoprolol succinate 25 mg Tablet sr Commonly known as: TOPROL-XL Take 25 mg by mouth daily. 25 mg Refills: 0 polyethylene glycol 17 gram Pwpk Commonly known as: MIRALAX Take 17 g by mouth daily as needed. 17 g Quantity: 14 each Refills: 0 vitamin C 500 mg Tab Take 500 mg by mouth daily. Winter months only Generic drug: ascorbic acid (vitamin C) 500 mg Refills: 0 warfarin 2.5 mg Tab Commonly known as: COUMADIN Take 1 tablet by mouth daily. 2.5 mg Refills: 0 STOPPED Medications fish oil-omega-3 fatty acids 1,000 mg Cap Stopped by: Danette Maxwell APRN turmeric root extract 500 mg Cap Stopped by: Danette Maxwell APRN ?? Allergies: Review of patient's allergies indicates no known allergies. ?? Heart Failure Management: Yes/No No?/Discontinued/Why Beta chadwick Yes Metoprolol tartrate 25 mg bid KIRSTIN/ARB Yes Lisinopril 10 mg daily Spironolactone No Hx of K+ > 5.0. EF > 40% AFIB? Post-op ?? Anticoagulated Yes Coumadin Device No EF now 45% ?? Interval ROS: Patient denies cough, fever, PND, orthopnea, activity intolerance, change in bowel habit, presyncope or syncope. ?? Physical Exam: BP 140/72 Pulse 63 Ht 172.7 cm (5' 8) Wt 81.6 kg (179 lb 14.4 oz) SpO2 99% BMI 27.35 kg/m2 ?? General: NAD. HEENT: JVD 6 cm H2O Lungs: Clear to A+P Cor: RR, normal S1, S2. PMI not displaced. No murmur or gallop. M/S: Able to walk now without issue Abd: soft, no L/S/K enlargement or bruits. Ext: Trace edema bilateral LE. Arterial rubor. Warm to feet? Lab data: Recent Labs 04/18/18 0919 NA 147* K 4.8 CL 101 CO2 23 BUN 18 CREATININE 1.19 GLUCOSE 167 ProBNP Date Value Ref Range Status 04/18/2018 2199 (H) <=125 pg/mL Final 11/29/2017 1769 (H) <=125 pg/mL Final 10/07/2017 1170 (H) <=125 pg/mL Final Lab Results Component Value Date ?? WBC 15.0 (H) 07/27/2017 ?? RBC 3.59 (L) 07/27/2017 ?? HGB 10.3 (L) 07/27/2017 ?? HCT 32.6 (L) 07/27/2017 ?? MCV 90.8 07/27/2017 ?? MCH 28.7 07/27/2017 ?? MCHC 31.6 (L) 07/27/2017 ?? PLATELET 322 07/27/2017 ?? RDWCV 14.7 (H) 07/27/2017 ? Cardiac studies: 10/07/2017 Echocardiogram: Rhythm: Sinus BP: 150/60 ?? SUMMARY: ?? 1. The left ventricle is probably normal in size. The quantitative left ventricular ejection fraction by biplane Oneill's method is 45%. There are left ventricular segmental wall motion abnormalities present, as shown in the diagram below. 2. The right ventricle is mildly dilated. Right ventricular global systolic function is probably normal. 3. There is no hemodynamically significant valve disease. 4. Compared to the images of 05 Jul 2017, there has been interval improvement in LV function. ? Assessment: Mr. Fatima appears well compensated today and without symptoms of heart failure. His vascular issues are well controlled and he is back to work. I will make no changes to his medications today. 1. ASCVD Continue ASA, BB and statin Stable No chest pain ?? 2. Ischemic cardiomyopathy On BB and KIRSTIN-I No spironolactone as K+ has been > 5.0 and EF now 45% ?? 3. Systolic heart failure ACC/AHA stage C, NYHA FC II-III proBNP is more elevated today, but no s/s HF Continue Lasix 20 mg daily ?? 4. HTN BP well controlled on current regime (140/72 today) ?? 5. Hx of hyperkalemia K+ 4.8 today 6. Post-op atrial fibrillation Amiodarone disconinued On coumadin INR managed by PCP. 2.1 today 7. PAD 08/06/2017: Right 1st, 2nd, 3rd toe amputation 08/11/2017: Left??femoral arterial access, RLE??angiogram, Balloon angioplasty of R PT with Eleazar 2.5 x 80 10/25/2017: right popliteal-pedal bypass at [facility] ? Plan: 1. A review of the active management and working diagnosis(es) was conducted. 2. The patient's medication list was updated and new Rxs given as needed. 3. Question were answered regarding: Lab results and treatment plan going forward. Discussed the need to call the HF team if increased SOB, LE edema or difficulty breathing. 4. The following labs or other testing advised: echocardiogram, proBNP and BMP at next visit. Needs PFTs as baseline for Amiodarone monitoring 5. Heart Failure Clinic follow up scheduled for: Shanelle Maxwell APRN 04/18/2018 documented in this encounter Plan of Treatment Upcoming Encounters Date Type Specialty Care Team Description 02/19/2022 Laboratory Appointment Lab 02/19/2022 Office Visit Cardiology Liz Poole PA [facility] Cardiology Dept [place], [place] [address] (Wo rk) 03/12/2022 Office Visit Cardiology Vitaliy Nobles MD [facility] CARDIOLOGY [place], [place] [address] ([facility]) documented as of this encounter Results ECHOCARDIOGRAM COMPLETE W CONTRAST (08/15/2018 7:55 AM EST) athologist Signature EF 35 HEARTLAB SYSTEM Specimen (Source) Anatomical Location Collection Method / Collectio n Time Received Time / Laterality Volume 08/15/2018 Narrative HEARTLAB SYSTEM - 08/15/2018 8:18 AM EST Procedure: ?Transthoracic Echocardiogram Patient: ?NATALYA Mccollum ? (Age): 1945(73y) Med Rec#: ? [id number] ?Sex: ?M ? Site Loc: ? [facility] ?Ht / Wt: ??172(cm)/81(kg) Pt. Loc: ?Echo Lab ?BSA: ?1.94 Study Date: ?? 08/15/2018 ?Pt. Type: Outpatient Tape: ? Referring: MARY ELLEN Reading: Scott Ortega ([id number]) Mail Handlers Supervisor: Laura Sargent Diagnosis: *Chronic systolic (congestive) heart fa ilure (I50.22) BP: ? 157/85 SUMMARY: 1. The left ventricle is mildly dilated. ??Global left ventricular systolic function is moderately reduced. ??The visually estimated left ventricular ejection fraction is 30-35%. There are left ventricular segmental wall motion abnormalities pres ent, as shown in the diagram below. 2. The right ventricle is probably ada l in size. ??Right ventricular global systolic function is probably nor mal. 3. There is no hemodynamically significa nt valve disease. 4. When compared side by side with study dated 09/2017, there has been a decline in global LV function (LVEF45%-- >30-35%) 5. See remainder of report for additiona l findings. Findings ? : Study Quality: ? Technically limited Left Ventricle: ? The left ventricle is mildly dilated. ?Left ventricular wall thickness is normal. ?There is no evidence of LVOT obstr uction. ?No ventricular septal defect is vi sualized. ?Global left ventricular systolic f unction is moderately reduced. ?The visually estimated left ventri cular ejection fraction is 30-35%. ?There are left ventricular segment al wall motion abnormalities present, as shown in the diagram below. ?Doppler assessment is consistent w ith elevated left sided filling pressure. ?The ??basal anteroseptal, basal an terior, basal anterolateral, basal inferolateral, basal inferior, basal inf eroseptal, mid anteroseptal, mid anterior, mid inferior, mid inferoseptal , apical anterior, and ??apical inferior wall segments are hypokinetic ( score 2). ?The ??mid anterolateral, mid infer olateral, apical septal, and apical lateral wall segments are akineti c (score 3). ?Overall wallmotion score index is ??2.25 ?No thrombus is visualized within t he left ventricle. Left Atrium: ? The left atrium is mo derately dilated. ?No atrial septal defect is visuali zed. Right Ventricle: ? The right ventric le is not well visualized. ?The right ventricle is probably no rmal in size. ?Right ventricular global systolic function is probably normal. ?Pulmonary artery hypertension coul d not be assessed due to inadequate tricuspid regurgitation jet. ?The estimated right atrial pressur e is 3 mmHg. Right Atrium: ? The right atrium [...] is mild dilatation of the aortic root. ?There is mild dilatation of the as cending aorta. Pulmonary Artery: ? The main pulmona ry [...] spectral Dop pler and color Doppler performed. ?Definity contrast (one 1.5 ml vial )was used to enhance endocardial definition. Excess contrast was discarde d. Chambers 2D ?Value ?Units (Range) ? IVSd (2D) ? 0.8 ?cm ? LVPWd (2D) ?0.8 ?cm ? IVS:LVPW ratio (2D) 1.1 ?ratio ? RWT (2D) ?0.3 ?ratio ? RWT PW (2D) ? 0.3 ?ratio ? LVIDd (2D) ?5.7 ?cm ? LVIDs (2D) ?4.7 ?cm ? LVIDd (2D) index ?2.9 ?cm/m2 ? LVIDs (2D) index ?2.4 ?cm/m2 ? LV FS (2D) ?18 ? % ? EF Teichholz (2D) ?? 37 ? % ? Ao root diameter (2D3.7 ?cm (2.1 - 3.6) ? Ascending Ao ?3.8 ?cm (2 - 3.5) ? Volumes/Mass ?Value ?Units (Range) ? LA Area 4 CH ?25.1 ? cm2 (<21) ? LA ESV BP (A/L) inde46.6 ? ml/m2 ? RA AREA 4CH ? 22.5 ? cm2 ? LV ESV SP 4CH (MOD) 158.3 ? ml ? LV ESV SP 2CH (MOD) 141.1 ? ml ? LV EDV BP ? 188.3 ?ml ? LV ESV BP ? 149.9 ?ml ? LV EDV BP index ? 97.1 ? ml/m2 ? LV ESV BP index ? 77.3 ? ml/m2 ? BP EF (MOD) ? 20 ? % ? LV mass (2D) ?166.1 ?g ? LV mass (2D) index ??85.6 ? g/m2 ? Diastolic/Systolic Function ?Value ?Units (Range) ? MV E-wave Vmax ?1.2 ?m/sec ? MV deceleration rvjp557.4 ? msec ? MV A-wave Vmax ?0.7 ?m/sec ? MV E:A ratio ?1.7 ?ratio ? LV septal e' Vmax ?? 0.1 ?m/sec ? LV lateral e' Vmax ??0.1 ?m/sec ? LV average e' Vmax ??0.1 ?m/sec ? LV E:e' septal ratio23.4 ? ratio ? LV E:e' lateral rati23.4 ? ratio ? LV average E:e' rati23.4 ? ratio ? Tricuspid Valve ?Value ?Units (Range) ? RAP ? 3 ?mmHg ? Wall Motion: Segment Name ?Rest ? Base-Anteroseptal ?? Hypokinetic ? Base-Anterior ? Hypokinetic ? Base-Anterolateral ??Hypokinetic ? Base-Posterolateral Hypokinetic ? Base-Inferior ? Hypokinetic ? Base-Inferoseptal ?? Hypokinetic ? Mid-Anteroseptal ?Hypokinetic ? Mid-Anterior ?Hypokinetic ? Mid-Anterolateral ?? Akinetic ? Mid-Posterolateral ??Akinetic ? Mid-Inferior ?Hypokinetic ? Mid-Inferoseptal ?Hypokinetic ? [place]-Septal ? Akinetic ? [place]-Anterior ? Hypokinetic ? [place]-Lateral ?Akinetic ? [place]-Inferior ? Hypokinetic ? [place]-Tip ?Akinetic ? This report has been electronically sign ed by: _ Scott Ortega M.D. ? 08/15/2018 08:17:26 Images reviewed and interpretation elvie hwang [facility] Cardiac Ultrasound Laboratory Procedure Note Scott Ortega MD - 08/15/2018Format ting of this note might be different from the original. Procedure: Transthoracic Echocardiogram Patient: NATALYA MCBRIDE(Age): [birth year]73y) Med Rec#: [id number] Sex: M Site Loc: [facility] Ht / Wt: 172(cm)/81(kg) Pt. Loc: Echo Lab BSA: 1.94 Study Date: 08/15/2018 Pt. Type: Outpati ent Tape: Referring: MARY ELLEN Reading: Scott Ortega ([id number]) Mail Handlers Supervisor: Laura Sargent Diagnosis: *Chronic systolic (congestive) heart fa ilure (I50.22) BP: 157/85 SUMMARY: 1. The left ventricle is mildly dilated. Global left ventricular systolic function is moderately reduced. The visually estimated left ventricular ejection fraction is 30-35%. There are left ventricular segmental wall motion abnormalities pres ent, as shown in the diagram below. 2. The right ventricle is probably ada l in size. Right ventricular global systolic function is probably nor mal. 3. There is no hemodynamically significa nt valve disease. 4. When compared side by side with study dated 09/2017, there has been a decline in global LV function (LVEF45%-- >30-35%) 5. See remainder of report for additiona l findings. Findings : Study Quality: Technically limited Left Ventricle: The left ventricle is mi ldly dilated. Left ventricular wall thickness is norm al. There is no evidence of LVOT obstructio n. No ventricular septal defect is visuali zed. Global left ventricular systolic functi on is moderately reduced. The visually estimated left ventricular ejection fraction is 30-35%. There are left ventricular segmental wa ll motion abnormalities present, as shown in the diagram below. Doppler assessment is consistent with e levated left sided filling pressure. The basal anteroseptal, basal anterior, basal anterolateral, basal inferolateral, basal inferior, basal inf eroseptal, mid anteroseptal, mid anterior, mid inferior, mid inferoseptal , apical anterior, and apical inferior wall segments are hypokinetic ( score 2). The mid anterolateral, mid inferolatera l, apical septal, and apical lateral wall segments are akineti c (score 3). Overall wallmotion score index is 2.25 No thrombus is visualized within the le ft ventricle. Left Atrium: The left atrium is moderate ly dilated. No atrial septal defect is visualized. Right Ventricle: The right ventricle is not well visualized. The right ventricle is probably normal in size. Right ventricular global systolic funct ion is probably normal. Pulmonary artery hypertension could not be assessed due to inadequate tricuspid regurgitation jet. The estimated right atrial pressure is 3 mmHg. Right Atrium: The right atrium is [...] mild dilatation of the a ortic root. There is mild dilatation of the ascendi ng aorta. Pulmonary Artery: The main pulmonary art anila is probably normal in size. Venous: The inferior vena cava appears n ormal in size. There is a greater than 50% respiratory change in the inferior vena cava dimension. Misc: There is no hemodynamically signif icant valve disease. See remainder of report for additional findings. Two-dimensional echo, spectral Doppler and color Doppler performed. Definity contrast (one 1.5 ml vial)was used to enhance endocardial definition. Excess contrast was discarde d. Chambers 2D Value Units (Range) IVSd (2D) 0.8 cm LVPWd (2D) 0.8 cm IVS:LVPW ratio (2D) 1.1 ratio RWT (2D) 0.3 ratio RWT PW (2D) 0.3 ratio LVIDd (2D) 5.7 cm LVIDs (2D) 4.7 cm LVIDd (2D) index 2.9 cm/m2 LVIDs (2D) index 2.4 cm/m2 LV FS (2D) 18 % EF Teichholz (2D) 37 % Ao root diameter (2D3.7 cm (2.1 - 3.6) Ascending Ao 3.8 cm (2 - 3.5) Volumes/Mass Value Units (Range) LA Area 4 CH 25.1 cm2 (<21) LA ESV BP (A/L) inde46.6 ml/m2 RA AREA 4CH 22.5 cm2 LV ESV SP 4CH (MOD) 158.3 ml LV ESV SP 2CH (MOD) 141.1 ml LV EDV BP 188.3 ml LV ESV BP 149.9 ml LV EDV BP index 97.1 ml/m2 LV ESV BP index 77.3 ml/m2 BP EF (MOD) 20 % LV mass (2D) 166.1 g LV mass (2D) index 85.6 g/m2 Diastolic/Systolic Function Value Units (Range) MV E-wave Vmax 1.2 m/sec MV deceleration xspt881.4 msec MV A-wave Vmax 0.7 m/sec MV E:A ratio 1.7 ratio LV septal e' Vmax 0.1 m/sec LV lateral e' Vmax 0.1 m/sec LV average e' Vmax 0.1 m/sec LV E:e' septal ratio23.4 ratio LV E:e' lateral rati23.4 ratio LV average E:e' rati23.4 ratio Tricuspid Valve Value Units (Range) RAP 3 mmHg Wall Motion: Segment Name Rest Base-Anteroseptal Hypokinetic Base-Anterior Hypokinetic Base-Anterolateral Hypokinetic Base-Posterolateral Hypokinetic Base-Inferior Hypokinetic Base-Inferoseptal Hypokinetic Mid-Anteroseptal Hypokinetic Mid-Anterior Hypokinetic Mid-Anterolateral Akinetic Mid-Posterolateral Akinetic Mid-Inferior Hypokinetic Mid-Inferoseptal Hypokinetic [place]-Septal Akinetic [place]-Anterior Hypokinetic [place]-Lateral Akinetic [place]-Inferior Hypokinetic [place]-Tip Akinetic This report has been electronically sign ed by: _ Scott Ortega M.D. 08/15/2018 08:17: 26 Images reviewed and interpretation verholger hwang [facility] Cardiac Ultrasound Laboratory Danette Maxwell APRN ECHO ORDERABLES Performing Organization Address City/State/ZIP Code Phon e Number HEARTLAB SYSTEM (ABNORMAL) Basic Metabolic Panel (non-fasting) (04/18/2018 9:19 AM EDT) P athologist Signature Glucose Lvl 167 65 - 199 [facility] mg/dL [facility] Comment: Diabetes: >=200 mg/dL plus symp toms BUN 18 10 - 20 mg/dL [facility] Creatinine 1.19 0.80 - 1.50 mg/dL [facility] Sodium 147 (H) 135 - 145 mmol/L [facility] Potassium 4.8 3.5 - 5.0 mmol/L [facility] Comment: Please note: ??Patients with WBC >100,00 0 may have falsely elevated Potassium levels. ??For accurate Potassium quantif ication in these patients send serum separator tube (gold top) for subsequent determinations. ??Contact the Clinical Chemistry Laboratory if there are any qu estions. Chloride 101 98 - 107 mmol/L [facility] CO2 23 22 - 31 mmol/L [facility] Anion Gap 23 (H) 5 - 15 mmol/L [facility] Calcium 9.3 8.5 - 10.5 mg/dL [facility] Estimated GFR 61 >=60 mL/min/1.73 m?? [facility] Comment: The eGFR was calculated using the CKD-EP I equation. As with all creatinine based estimates of kidney function, eGFR values calculated with the CKD-EPI equation are not accurate in patients wi th acute kidney failure, extremes of body mass or the acutely ill. [email or web address] eGFR 70 >=60 mL/min/1.73 m?? [facility] Comment: The eGFR was calculated using the CKD-EP I equation. As with all creatinine based estimates of kidney function, eGFR values calculated with the CKD-EPI equation are not accurate in patients wi th acute kidney failure, extremes of body mass or the acutely ill. [email or web address] Specimen Anatomical Collection Method Collection Time Receive d Time (Source) Location / / Volume Laterality Blood specimen 04/18/2018 9:19 AM 018 9:34 (specimen) EDT AM EDT Resulting Agency Comment Spec In Lab Danette Maxwell STACIE CHEMISTRY ORDERABLES Performing Organization Address City/State/ZIP Code Phon e Number [address] (ABNORMAL) pro-Brain Natriuretic Peptide (04/18/2018 9:19 AM EDT) P athologist Signature ProBNP 2,199 (H) <=125 [facility] pg/mL [facility] Specimen Anatomical Collection Method Collection Time Receive d Time (Source) Location / / Volume Laterality Blood specimen 04/18/2018 9:19 AM 018 9:34 (specimen) EDT AM EDT Resulting Agency Comment Spec In Lab Danette Gomes [place] STACIE CHEMISTRY ORDERABLES Performing Organization Address City/[facility]/ZIP Code [place] [address] documented in this encounter Visit Diagnoses Diagnosis Chronic systolic heart failure On amiodarone therapy Ischemic cardiomyopathy Other specified forms of chronic ischemi c heart disease ASCVD (arteriosclerotic cardiovascular d isease) Unspecified cardiovascular disease Chronic systolic heart failure documented in this encounter Care Teams Visual Aid Expert Relationship Specialty Start Date End Date Lovely Vicente MD PCP - General 04/16/[address] [place] [address] documented as of this encounter
--- OUTSIDE RECORDS SUMMARY | 2022-02-06 13:31 | XMS_ITS | Encounter Summary ---
:1945 Author Organization [facility] [employer] [place] [address] Care Team Providers Name Role Phone Lovely Vicente MD Primary Care Provider Reason for Referral Diagnostic Test (Routine) - Closed Specialty Diagnoses / Procedures Referred By Contact Refer red To Contact Diagnoses Chronic systolic heart failure Liz Poole PA Procedures Echocardiogram Transthoracic([facility] or [facility]) [facility] [place] [address] Referral ID Status Reason Start Date Expiration Date Visits V isits Requested Authorized [id number] Closed Specialty 04/17/2021 10/14/2021 1 1 Service Requested Encounter Details Date Type Department Care Team Description 04/16/2021 [place] [facility]ole, Chronic systolic heart [facility] [place] [address] Cardiology Dept [phone] [place], [place] [address] Social History Tobacco Use Types [...] Sign Reading Time Taken Comments Blood Pressure 139/63 04/16/2021 11:00 AM EDT Pulse 59 04/16/2021 11:00 AM EDT Temperature - - Respiratory Rate - - Oxygen Saturation 97% 04/16/2021 11:00 AM EDT Inhaled Oxygen Concentration - - Weight 91.5 kg (201 lb 11.2 oz) 04/16/2021 11:00 AM EDT Height 172.7 cm (5' 8) 04/16/2021 11:00 AM EDT Body Mass Index 30.67 04/16/2021 11:00 AM EDT documented in this encounter Progress Notes Liz Poole PA - 04/16/2021 11:00 AM EDT Images from the original note were not included. CARDIOMYOPATHY/HEART FAILURE SERVICE OFFICE VISIT NOTE: ID and CC: Don Fatima is a 76 y.o. male presenting for routine f/u regarding ASCVD, ischemic cardiomyopathy. ?? HPI: Index presentation: Mr. Fatima is a 72 year old male w/ a h/o MARIA VICTORIA (not using CPAP), DM2, COPD, HTN, HLD, GERD, and hyperthyroid who presented on 07/05/2017 with late presenting STEMI. Admitted to thecardiology service on 07/05/2017 STEMI/transmural infarction with Q-waves in his anterior [...] anticoagulation. Discharge weight: 200 lb. Last visit: 11/07/2019 via telephone. No changes were made. He was feeling good. Interim events: Seen at [facility] after an episode of dizziness and per report double vision (stacked, not side by side).He had a thorough work up including a CT head/c- spine as well as brain MRI. No summaries to refer to. Per patient and , evidence of cerebral vascular disease but old, recommended to start aspirin da sudhakar. Aspirin dosing reduced to twice weekly by PCP with concern for bleeding on warfarin. 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 No abdominal distention Numbness bilateral LE (chronic) Sleeping in his normal pattern. Using CPAP. No PND or orthopnea No palpitations Reports labile INR. Patient Active Problem List ?? Diagnosis ??? [...] Melanoma ? Your Medications Accurate as of April 16, 2021 11:59 PM. If you have any questions, ask your nurse or doctor. Continued medications with new dosing Dose Details warfarin 2.5 mg Tab Commonly known as: Coumadin Take 1 tablet by mouth daily. What changed: additional instructions 2.5 mg Refills: 0 Continued medications, unchanged Dose Details Accu-Chek Elif [...] Lipitor Take 10 mg by mouth daily. 10 mg Refills: 0 BD Ultra-Fine Mini Pen Needle 31 gauge x 3/16 Ndle 1 each by Other route 4 times daily. Generic drug: insulin needles (disposable) 1 each Refills: 0 furosemide 20 mg Tab Commonly known as: Lasix Take 20 mg by mouth daily. 20 mg Refills: 0 insulin lispro Inpn Commonly known as: HumaLOG Inject 15 Units subcutaneously 3 times daily (before meals). 15 Units Refills: 0 Lantus Solostar U-100 Insulin 100 unit/mL (3 mL) pen 25 Units. Generic drug: insulin glargine 25 Units Refills: 0 levothyroxine 175 mcg Tab Commonly known as: SYNTHROID Take 1 tablet by mouth daily. 1 tablet daily 6 days per week, and 2 tablets 1 day per week. 175 mcg Quantity: 102 tablet Refills: 3 losartan 100 mg Tab Commonly known as: [...] Toprol-XL Take 25 mg by mouth daily. 25 mg Refills: 0 TURMERIC ORAL Take 500 mg by mouth 2 times daily. 500 mg Refills: 0 Allergies: Review of patient's allergies indicates no known allergies. ?? Heart Failure Management: Yes/No No?/Discontinued/Why Beta chadwick Yes Metoprolol succinate 25 mg daily KIRSTIN/ARB Yes Lisinopril 2.5 mg daily Spironolactone No Hx of K+ > 5.0. EF > 40% AFIB? Post-op ?? Anticoagulated Yes Coumadin Device No EF now 40%-45% Patient Vitals for the past 24 hrs: Pulse BP SpO2 04/16/21 1100 59 139/63 97 % Physical Exam: ?? Lab data: Recent Labs 04/16/21 0958 NA 140 K 5.2* CL 103 CO2 28 BUN 23* CREATININE 1.26 GLUCOSE 77 ProBNP Date Value Ref Range Status 04/16/2021 523 (H) <=124 pg/mL Final 07/28/2019 647 (H) <=125 pg/mL Final 01/16/2019 780 (H) <=125 pg/mL Final Lab Results Component Value Date ?? WBC 15.0 (H) 07/27/2017 ?? RBC 3.59 (L) 07/27/2017 ?? HGB 10.3 (L) 07/27/2017 ?? HCT 32.6 (L) 07/27/2017 ?? MCV 90.8 07/27/2017 ?? MCH 28.7 07/27/2017 ?? MCHC 31.6 (L) 07/27/2017 ?? PLATELET 322 07/27/2017 ?? RDWCV 14.7 (H) 07/27/2017 Lipid Panel Lab Results Component Value Date CHLPL 75 08/15/2018 HDL 32 08/15/2018 CHOLHDL 2.3 08/15/2018 TRIG 185 08/15/2018 LDLCHOL 6 08/15/2018 Cardiac studies: 07/28/2019 Echocardiogram: BP: 130/47 HR: 70 SUMMARY: 1. The [...] regurgitation present. 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 1. ASCVD S/p CABG, THOMPSON->LAD, Seq SVG->OM1->D1 (07/07/2017) Continue metoprolol XL 25 mg daily and losartan 100 mg daily Recommend aspirin 81 mg daily, will discuss with PCP No chest pain ?? 2. Ischemic cardiomyopathy Echocardiogram shows EF 40 to 45% On BB and ARB - changed to losartan from lisinopril No spironolactone historically as K+ has been > 5.0 and EF >40%, will revisit if clinically indicated ?? 3. Systolic heart failure EF 40-45 % 2019 ACC/AHA stage C, NYHA FC II-IIIa Lasix 20 mg - change to as needed; discussed daily weights s/s of fluid retention ?? 4. HTN BP: (139)/(63) Continue to monitor Metoprolol succ and losartan ?? 5. Hx of hyperkalemia K+ 5.2 today 6. Post-op atrial fibrillation [id number] 7 (CHF, HTN, DM, vascular disease, thromboembolism) On warfarin - recent labile INR Will discuss with PCP, option of Eliquis 7. PAD 08/06/2017: Right 1st, 2nd, 3rd toe amputation 08/11/2017: Left??femoral arterial access, RLE??angiogram, Balloon angioplasty of R PT 10/25/2017: right popliteal-pedal bypass at [facility] 8. Hypothyrodism S/p thyroidectomy for goiter Continue Levothyroxine ?? Plan: 1. A review of the active management and working diagnosis(es) was conducted. 2. The patient's medication list was updated and new Rxs given as needed. 3. Heart Failure Clinic follow up scheduled for: 6 months with proBNP, BMP and TTE Liz Poole PA-C 04/17/2021 documented in this encounter Plan of Treatment Upcoming Encounters Date Type Specialty Care Team Description 02/19/2022 Laboratory Appointment Lab 02/19/2022 Office Visit Cardiology Liz Poole PA [facility] [place] [address] (Mikayla alcaraz) 03/12/2022 Office Visit Cardiology Vitaliy Nobles MD [facility] CARDIOLOGY [place], [place] [address] (Mikayla alcaraz) Scheduled Orders Name Type Priority Associated Order Schedule Diagnoses Echocardiogram Echocardiography Routine Chronic systolic Expec vlad: Transthoracic([facility] or heart failure 10/15 NL) (Approximate), Expires: 04/16/2022 documented as of this encounter Results (ABNORMAL) Basic Metabolic Panel (non-fasting) (04/16/2021 9:58 AM EDT) athologist Signature Glucose Lvl 77 65 - 199 [facility] mg/dL [facility] Comment: Diabetes: >=200 mg/dL plus symp toms BUN 23 (H) 10 - 20 mg/dL [facility] Creatinine 1.26 0.80 - 1.50 mg/dL [facility] Sodium 140 135 - 145 mmol/L [facility] Potassium 5.2 (H) 3.5 - 5.0 mmol/L [facility] Comment: Please note: ??Patients with WBC >100,00 0 may have falsely elevated Potassium levels. ??For accurate Potassium quantif ication in these patients send serum separator tube (gold top) for subsequent determinations. ??Contact the Clinical Chemistry Laboratory if there are any qu estions. Chloride 103 98 - 107 mmol/L [facility] CO2 28 22 - 31 mmol/L [facility] Anion Gap 9 5 - 15 mmol/L [facility] Calcium 9.3 8.5 - 10.5 mg/dL [facility] Estimated GFR 55 (L) >=60 mL/min/1.73 m?? [facility] Comment: This patient? s estimated glomerular filtration rate (eGFR) is between 55 mL/min/1.73 m2 (patients with less muscl e mass per kg body weight) and 64 mL/min/1.73 m2 (patients with more muscl e [...] (Source) Location / / Volume Laterality Blood 04/16/2021 9:58 AM EDT 10:02 AM EDT Resulting Agency Comment Spec In Lab Zulma Plunkett MD CHEMISTRY ORDERABLES Performing Organization Address City/State/[place] [address] (ABNORMAL) pro-Brain Natriuretic Peptide (04/16/2021 9:58 AM EDT) P athologist Signature ProBNP 523 (H) <=124 pg/mL [facility] Specimen Anatomical Collection Method Collection Time Receive d Time (Source) Location / / Volume Laterality Blood 04/16/2021 9:58 AM EDT 10:02 AM EDT Resulting Agency Comment Spec In Lab Zulma Plunkett MD CHEMISTRY ORDERABLES Performing Organization Address City/State/[place] [address] documented in this encounter Visit Diagnoses Diagnosis Chronic systolic heart failure documented in this encounter Care Teams Placement Coordinator Relationship Specialty Start Date End Date Lovely Vicente MD PCP - General 04/16/[address] [place] [address] documented as of this encounter
--- OUTSIDE RECORDS SUMMARY | 2022-02-06 13:31 | XMS_ITS | Encounter Summary ---
:1945 [place] [address] Care Team Providers Name Role Phone Lovely Vicente MD Primary Care Provider Encounter Details Date Type Department Care Team Description 07/12/2019 Office Visit Dermatology at [facility], Rigoberto Yarbrough (actinic keratosis); MD SHAY Quick III (seborrheic keratosis); [address] [facility] Multiple benign nevi; [place] [address] History of melanoma [phone] [facility] [place], [place] [address] Social History Tobacco Use Types Packs/Day Years Used Date Former Smoker Cigarettes 3 5 Quit: 07/26/18 69 Smokeless Tobacco: Never Used Alcohol Use Standard Drinks/Week Comments No 0 (1 standard drink = 0.6 oz pure alcoho l) Sex Assigned at Date Recorded Not on file documented as of this encounter Progress Notes Sanam Koo CCMA - 07/12/2019 7:45 AM EST DERMATOLOGY ESTABLISHED PATIENT CLINIC NOTE Date of service: 07/12/2019 Don Fatima : 1945 Provider: Rigoberto Garcia MD PROBLEM: FSE SKIN HISTORY: 2006:??Melanoma - 0.98 mm with a Ede Level IV, high on his mid back ?? Psoriasis HPI Don Fatima is a 74 y.o. year old male. Patient is here today for a FSE. Denies any new or concerning spots today. Pt last seen on 07/06/18. He is currently wearing a heart monitor. Procedure Screening Questions: Allergy to lidocaine or epinephrine: No Blood thinners: No Pacemaker/defibrillator:?? Heart valves:?? Joint replacements:?? ADR: No Known Allergies CURRENT MEDICATIONS: Current Outpatient Medications Medication Sig Dispense Refill ??? TURMERIC ORAL Take 500 mg by mouth daily. ??? levothyroxine (SYNTHROID) 175 mcg Tablet Take 1 tablet by mouth daily. 1 tablet daily 6 days perweek, and 2 tablets 1 day per week. 102 tablet 3 ??? meTOPROLOL succinate (TOPROL-XL) 25 mg Tablet Sustained Release 24 hr Take 25 mg by mouth daily. ??? insulin glargine Solution Inject 15 Units subcutaneously nightly. (Patient taking differently: Inject 21 Units subcutaneously nightly.) 10 mL 12 ??? insulin lispro (HUMALOG) Solution Inject 11 Units subcutaneously 3 times daily (with meals). (Patient taking differently: Inject 14 Units subcutaneously 3 times daily (with meals).) 10 mL 12 ??? lisinopril (PRINIVIL;ZESTRIL) 2.5 mg Tablet Take 2.5 mg by mouth daily. ??? furosemide (LASIX) 20 mg Tablet Take 2 tablets by mouth daily. (Patient taking differently: Take20 mg by mouth daily.) 60 tablet 3 ??? Magnesium Oxide 500 mg Capsule Take 500 mg by mouth 2 times daily. ??? clobetasol (TEMOVATE) 0.05 % Solution Apply 1 Application topically 2 times daily. 1 ??? warfarin (COUMADIN) 2.5 mg Tablet Take 1 tablet by mouth daily. ??? atorvastatin (LIPITOR) 40 mg Tablet Take 1 tablet by mouth every evening. 90 tablet 3 ??? ACCU-CHEK TERA PLUS TEST STRP Strip 2-3 times daily 100 each 1 ??? metFORMIN (GLUCOPHAGE) 850 mg Tablet Take 1 tablet by mouth 2 times daily (with meals). 60 tablet 12 ??? BD INSULIN PEN NEEDLE UF MINI 31 gauge x 3/16 Needle 1 each by Other route 4 times daily. 0 No current facility-administered medications for this visit. PROBLEM LIST: Patient Active Problem List Diagnosis Code ??? Melanoma C43.9 ??? Seborrheic psoriasis- scalp and ingtergluteal area L40.8 ??? Skin lesion of chest wall L98.9 ??? Goiter E04.9 ??? MARIA VICTORIA (obstructive sleep apnea) on CPAP G47.33 ??? Urinary retention R33.9 ??? Atypical nevus of abdominal wall D22.5 ??? BPH (benign prostatic hyperplasia) N40.0 ??? STEMI (ST elevation myocardial infarction) I21.3 ??? ASHD (arteriosclerotic heart disease) I25.10 ??? Cardiomyopathy, ischemic I25.5 ??? Hypertension, accelerated, with systolic CHF, 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 I11.0, I50.20 ??? Critical lower limb ischemia I99.8 ??? Ischemic foot I99.8 ??? Dependence on continuous positive airway pressure ventilation Z99.89 ??? Gastroesophageal reflux disease K21.9 ??? Hearing impaired H91.90 ??? Hyperlipidemia E78.5 ??? Hypomagnesemia E83.42 ??? Peripheral neuropathy G62.9 ??? Carpal tunnel syndrome G56.00 ??? Hx of malignant melanoma Z85.820 ??? Hx of thyroid cancer Z85.850 ??? Leg cramps R25.2 ??? Osteoarthrosis M19.90 ??? Postoperative retention of urine N99.89, R33.8 ??? 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 Delayed surgical wound healing T81.89XA ??? S/P CABG x 3 Z95.1 ??? On amiodarone therapy Z79.899 ROS General: feeling well. Oriented X 3. Skin: denies other skin complaints EXAM General: NAD, pleasant, cooperative Skin: Patient was asked to undress to the level of her comfort. Verbalized that the provider's preference is for the patient to remove all clothing and that the provider will not examine areas patient elects to keep covered. A total body skin exam except for the genitalia was performed. This includes examination of the skin of the face, ears, neck, chest, axillae, left and right upper and lower extremities, hands, feet, abdomen, back, and buttocks. The genitalia, perineum, and perianal areas were not examined. Significant skin findings: A. Right helical rim x 1 left helical rim x 1: 0.2-0.3 cm scaly irregular pink papule(s). [Total: 2] B. Trunk and extremities: Scattered 0.4-0.6 cm pink-brown papules/plaques with waxy stuck-on appearance. C. Trunk and extremities: Multiple 0.3-0.5 cm medium-brown, evenly-pigmented macules and papules. All with regular pigment pattern on dermoscopy. No pigmented lesions suspicious for melanoma. D. Mid back: well-healed scar.S/P melanoma ASSSSMENT/PLAN: A. Actinic Keratoses - right helical rim x 1 left helical rim x 1 - Explained etiology, natural history and premalignant potential of these lesions. - Discussed treatment with cryotherapy, including the risks and benefits. - Patient elects to proceed with cryotherapy today. Procedure: Destruction of lesion(s) with cryotherapy (LN2). Location(s): As noted above. Number: 2 Discussed procedure and expectations, including risks (especially hypopigmentation) and benefits. Verbal consent obtained. Frozen with LN2, 15-30 second thaw time, twice. There were no complications; patient tolerated the procedure well. Post-procedure expectations and wound care reviewed. - Instructed patient to return to clinic for re-evaluation if lesion(s) does not resolve with this treatment. B. Seborrheic Keratoses, trunk and extremities - Explained that these are hereditary and adult-acquired. Reassured patient of benign nature. No treatment necessary - Advised patient to call if they become inflamed or irritated. C. Benign-Appearing Nevi, trunk and extremities - No atypical lesions or features worrisome for malignancy. - Advised patient to watch for anything new or changing. Discussed changes (bleeding, pain, change in color or shape) that should prompt re-evaluation.?? - Will continue to monitor. E. History of Melanoma, mid back - No lymphadenopathy noted. - NER; continue to monitor. - Discussed importance of sun protection, sun avoidance strategies, protective clothing, and sunscreen. The nature of sun-induced photo-aging and skin cancers is discussed. Sun avoidance, protective clothing, and the use of 30-SPF sunscreens is advised. Observe closely for skin damage/changes, and call if such occurs. RTC - 6 months for a full skin exam; sooner if needed. Appointment scheduled before exiting. Instructed patient to call with questions or concerns. Note initiated by: JOHNSON Ryder, Clinical Scribe has performed the documentation for this encounter in the presence of and acting as a scribe for Rigoberto Garcia MD. I performed the above scribed service and agree with the accuracy of the documentation in this encounter. Rigoberto Garcia MD Section of Dermatology [facility] documented in this encounter Plan of Treatment Upcoming Encounters Date Type Specialty Care Team Description 02/19/2022 Laboratory Appointment Lab 02/19/2022 Office Visit Cardiology Liz Poole PA [facility] er Cardiology Dept [place], [place] [address] (Wo rk) 03/12/2022 Office Visit Cardiology Vitaliy Nobles MD [facility] CARDIOLOGY [place], [place] [address] (Wo rk) documented as of this encounter Visit Diagnoses Diagnosis AK (actinic keratosis) Actinic keratosis SK (seborrheic keratosis) Other seborrheic keratosis Multiple benign nevi Benign neoplasm of skin, site unspecifie d History of melanoma Personal history of malignant melanoma o f skin documented in this encounter Care Teams Nursing Informatics Specialist Relationship Specialty Start Date End Date Lovely Vicente MD PCP - General 04/16/[address] [place] [address] documented as of this encounter
--- OUTSIDE RECORDS SUMMARY | 2022-02-06 13:31 | XMS_ITS | Encounter Summary ---
:1945 [place] [address] Care Team Providers Name Role Phone Lovely Vicente MD Primary Care Provider Reason for Visit Reason Comments Skin Cancer Examination Encounter Details Date Type Department Care Team Description 03/20/2021 Office Visit Dermatology at [facility] Brennen Rene MD History of melanoma; [facility] History of dysplastic nevus; [address] Multiple benign nevi; [place] [address] [facility] (seborrheic keratosis); [phone] RD-DERMATOLOGY [place] (actinic keratosis) [place], [place] [address] Social History Tobacco Use Types Packs/Day Years Used Date Former Smoker Cigarettes 3 5 Quit: 07/26/18 69 Smokeless Tobacco: Never Used Alcohol Use Standard Drinks/Week Comments No 0 (1 standard drink = 0.6 oz pure alcoho l) Sex Assigned at Date Recorded Not on file documented as of this encounter Progress Notes Laura Rene MD - 03/20/2021 10:00 AM EDT Images from the original note were not included. DEPARTMENT OF DERMATOLOGY [facility] Provider: LAURA RENE MD Patient's preferred name Don Preferred contact method for results []myDH []Letter [x]Phone: Detailed phone message OK? yes Are there any other people with whom we may discuss your care? PAST MEDICAL HISTORY If no, type N. If yes, type date, location, treatment Melanoma 02/12/2006: Right supraclavicular, SLNB negative Left supraclavicular, SLNB negative 12/29/2005: Mid upper back, melanoma, 0.98mm (excised, 02/12/2006) Dysplastic nevi 11/24/2016: Right suprascapular, moderately dn(shave bx) Right mid back, moderately dysplastic nevus (shave biopsy) Mid upper abdomen, severely DN (excised, 12/03/2016) 07/31/2013: Right abdomen, moderately dysplastic nevus (shave biopsy) 10/04/2012: Left mid chest, moderately dysplastic nevus (shave biopsy) SCC no BCC no AKs Yes UV Exposure & Protection N Other relevant past medical history (i.e. 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 If yes, include details below Allergy to lidocaine, epinephrine, Dermabond, chlorhexidine, or adhesives: no Bleeding disorder or blood thinners: no Pacemaker, defibrillator, deep brain stimulator, cochlear implant: no History of Present Illness: Don Fatima is a 76 y.o. year old. Patient returns to clinic today for a full skin examination and has no specific areas of concern. Denies any itching, pain, or bleeding. [facility]2020 Medications: Reviewed in eD-H Allergies: Reviewed in eD-H Skin Examination: Full skin examination: Patient asked to undress to their comfort level. Verbalized that the provider's preference is that patient removal all clothing and that the provider will not examine areas patient elects to keep covered. Examination of the scalp, hair, head, face, ears, neck, chest, axillae, abdomen, back, buttocks, and upper and lower extremities.Genitalia was not examined. Assessment/Plan #. History of Melanoma, 0.98mm - Mid upper back: well-healed surgical scar, no signs of recurrence. - NER - Continue to monitor - no adenopathy noted - Call if problems arise ?? #. History of Severely Dysplastic Nevus - Mid upper abdomen: well-healed surgical scar, no signs of recurrence. - NER - Continue to monitor - Call if problems arise #. Benign Appearing Nevi - Multiple, 0.3-0.5cm, medium-brown, evenly-pigmented macules and papules. All with regular pigment pattern on dermoscopy. No pigmented lesions suspicious for melanoma. - Benign. No treatment necessary. - Reassured about benign nature and natural history. #. Seborrheic Keratoses - Multiple 0.4-1 cm, brown-black papules/plaques with waxy stuck on appearance - Benign. No treatment necessary. - Reassured about benign nature and natural history. #. Actinic Keratoses - 0.2-0.3cm scaly irregular pink papules on the bilateral helices x 2 - Counseled: AKs, risk for progression to SCCs, and treatment options, including observation, LN2, Efudex cream, and PDT. Procedure Note: Procedure: Destruction of lesions with cryotherapy. Number: 2 Location: as above Discussed procedure and expectations including risks (including risk of hypopigmentation) and benefits. Verbal consent obtained. Frozen with LN2, 15-30 second thaw time, TWICE. There were no complications; the patient tolerated the procedure well. Post-procedure expectations and wound care were reviewed. Other items to document in the assessment/plan if relevant ??? N/A RTC: 1 year for FSE; history of Melanoma []Note routed to board of education secretary [x]Recall has been placed in scheduling system []Appointment scheduled at checkout Scribe attestation: Yoana Pang LPN has performed the documentation for this encounter in the presence of and acting as a scribe for LAURA RENE MD I performed the above scribed service and agree with the accuracy of the documentation in this encounter. Reviewed and signed by: LAURA RENE MD Dermatology [facility] documented in this encounter Plan of Treatment Upcoming Encounters Date Type Specialty Care Team Description 02/19/2022 Laboratory Appointment Lab 02/19/2022 Office Visit Cardiology Vendetti, Liz, [facility] Dept [place], [place] [address] (Wo rk) 03/12/2022 Office Visit Cardiology Vitaliy Nobles MD [facility] CARDIOLOGY [place], [place] [address] (Wo rk) documented as of this encounter Visit Diagnoses Diagnosis History of melanoma Personal history of malignant melanoma o f skin History of dysplastic nevus Personal history of diseases of skin and subcutaneous tissue Multiple benign nevi Benign neoplasm of skin, site unspecifie d SK (seborrheic keratosis) Other seborrheic keratosis [place] (actinic keratosis) Actinic keratosis documented in this encounter Care Teams Ripening Room Hand Relationship Specialty Start Date End Date Lovely Vicente MD PCP - General 04/16/[address] [place] [address] documented as of this encounter
--- OUTSIDE RECORDS SUMMARY | 2022-02-06 13:31 | XMS_ITS | Encounter Summary ---
:1945 Author Organization [facility] [place] [address] Care Team Providers Name Role Phone Lovely Vicente MD Primary Care Provider Encounter Details Date Type Department Care Team Description 07/28/2019 Office Visit Cardiology at [facility] Danette Maxwell Chronic systolic heart failu re; [facility] A, STACIE ASHD (arteriosclerotic heart disease); Drive [facility] S/P CABG x 3; [place], [place] MARIA VICTORIA (obstructive sleep apnea) on CPAP; [id number] CARDIOLOGY Mixed hyperlipidemia [phone] [place], [place] [address] Social History Tobacco Use Types [...] Sign Reading Time Taken Comments Blood Pressure 149/74 07/28/2019 9:19 AM EST Pulse 72 07/28/2019 9:19 AM EST Temperature - - Respiratory Rate - - Oxygen Saturation 99% 07/28/2019 9:19 AM EST Inhaled Oxygen Concentration - - Weight 88.9 kg (196 lb) 07/28/2019 9:19 AM EST Height 172.7 cm (5' 8) 07/28/2019 9:19 AM EST Body Mass Index 29.8 07/28/2019 9:19 AM EST documented in this encounter Progress Notes Danette Maxwell, FERN PICKER - 07/28/2019 9:40 AM EST Images from the original note were not [...] anticoagulation. Discharge weight: 200 lb Last visit: 01/16/2019. No changes were made. He was feeling good. Interim events: No ED visits or hospitalizations PCP placed a Zio patch for palpitations Today: Feels pretty good Breathing is good. SOB if out doing a lot of things Walked from front entrance to 3L to [...] Melanoma ? Your Medications Accurate as of July 28, 2019 1:54 PM. If you have any questions, ask your nurse or doctor. Continued medications with new dosing Dose Details atorvastatin 40 mg Tab Commonly known as: Lipitor Take 1 tablet by mouth every evening. What changed: how much to take 40 mg Quantity: 90 tablet Refills: 3 furosemide 20 mg Tab Commonly known as: Lasix Take 2 tablets by mouth daily. What changed: how much to take 40 mg Quantity: 60 tablet Refills: 3 insulin lispro Soln Commonly known as: HumaLOG Inject 11 Units subcutaneously 3 times daily (with meals). What changed: how much to take 11 Units Quantity: 10 mL Refills: 12 Continued medications, unchanged Dose Details Accu-Chek Elif Plus test strp Strp 2-3 times daily Generic drug: blood sugar diagnostic strips Quantity: 100 each Refills: 1 ascorbic acid (Vitamin C) 500 mg Tab Commonly known as: Vitamin C Take 500 mg by mouth daily. 500 mg Refills: 0 BD Ultra-Fine Mini Pen Needle 31 gauge x 3/16 Ndle 1 each by Other route 4 times daily. Generic drug: insulin needles (disposable) 1 each Refills: 0 clobetasol 0.05 % Soln Commonly known as: TEMOVATE Apply 1 Application topically 2 times daily. 1 Application Refills: 1 ferrous sulfate 325 mg (65 mg iron) Tab Take 325 mg by mouth daily (with breakfast). 325 mg Refills: 0 Lantus Solostar U-100 Insulin 100 unit/mL (3 mL) pen 21 Units. Generic drug: insulin glargine 21 Units Refills: 0 levothyroxine 175 mcg Tab Commonly known as: SYNTHROID Take 1 tablet by mouth daily. 1 tablet daily 6 days per week, and 2 tablets 1 day per week. 175 mcg Quantity: 102 tablet Refills: 3 lisinopril 2.5 mg Tab Commonly known as: Prinivil;Zestril Take 2.5 mg by mouth daily. 2.5 [...] Coumadin Take 1 tablet by mouth daily. 2.5 mg Refills: 0 STOPPED Medications aspirin EC 81 mg Tbec Stopped by: Danette Maxwell APRN Allergies: Review of patient's allergies indicates no known allergies. ?? Heart Failure Management: Yes/No No?/Discontinued/Why Beta chadwick Yes Metoprolol tartrate 25 mg bid KIRSTIN/ARB Yes Lisinopril 2.5 mg daily Spironolactone No Hx of K+ > 5.0. EF > 40% AFIB? Post-op ?? Anticoagulated Yes Coumadin Device No EF now 30-35% ? Physical Exam: BP 149/74 Pulse 72 Ht 172.7 cm (5' 8) Wt 88.9 kg (196 lb) SpO2 99% BMI 29.80 kg/m? General: NAD. HEENT: JVD at level of clavicles Lungs: Clear to A+P Cor: RR, normal S1, S2. PMI not displaced. No murmur or gallop. M/S: Able to walk now without issue Abd: soft, no L/S/K enlargement or bruits. Ext: No LE edema. Arterial rubor present. Warm to feet. ?? Lab data: Recent Labs 07/28/19 0836 NA 141 K 4.5 CL 100 CO2 29 BUN 22* CREATININE 1.05 GLUCOSE 153 ProBNP Date Value Ref Range Status 07/28/2019 647 (H) <=125 pg/mL Final 01/16/2019 780 (H) <=125 pg/mL Final 08/15/2018 1,797 (H) <=125 pg/mL Final Lab Results Component [...] 185 08/15/2018 LDLCHOL 6 08/15/2018 Cardiac studies: Echocardiogram: BP: 130/47 HR: 70 ?? SUMMARY: ?? 1. The left ventricle [...] regurgitation present. 07/07/2019 - 07/21/2019 Zio Patch Ethernet Network Architect The patient had a minimum heart rate [...] Continue metoprolol XL 25 mg daily and lisinopril 2.5 mg daily PCP stopped ASA due to bruising Stable No chest pain ?? 2. Ischemic cardiomyopathy Echocardiogram today EF shows 40 to 45% On BB and KIRSTIN-I No spironolactone as K+ has been > 5.0 ?? 3. Systolic heart failure EF 40-45 % today ACC/AHA stage C, NYHA FC II-III Continue Lasix 20 mg daily. We did discuss every other day and keeping track decreasing Lasix to 20 mg of daily weights. I have left this up to the patient to decide ?? 4. HTN BP 149/74 Lisinopril 2.5 mg daily ?? 5. Hx of hyperkalemia K+ 4.5 today 6. Post-op atrial fibrillation [id number] (CHF, HTN, DM, vascular disease, thromboembolism) Amiodarone discontinued Continue coumadin INR managed by PCP 7. PAD 08/06/2017: Right 1st, 2nd, 3rd toe amputation 08/11/2017: Left??femoral arterial access, RLE??angiogram, Balloon angioplasty of R PT with Eleazar 2.5 x 80 10/25/2017: right popliteal-pedal bypass at [facility] 8. Hypothyrodism S/p thyroidectomy for goiter Continue Levothyroxine ?? Plan: 1. A review of the active management and working diagnosis(es) was conducted. 2. The patient's medication list was updated and new Rxs given as needed. 3. Question were answered regarding: Lab results and treatment plan going forward. Discussed the results of the Zio patch and stopping Coumadin. I have asked Mr. Fatima to see Dr. Mcelroy in [place] to review the results of his Zio patch and discuss continuing anticoagulation. I discussed the results of the Zio patch with Dr. Mcelroy. Given that Mr. Fatima is asymptomatic, it is reasonable to be seen by EP in August 2019. Discussed s/s to be aware of that would prompt a visit to the ED to include syncope, dizziness, lightheadedness. I discussed the risk of stroke with Mr. Fatima and his . He will remain on the coumadin until he sees Dr. Mcelroy to discuss with him. 4. The following labs or other testing advised: Refer to EP (Dr. Mcelroy in [place]) 5. Heart Failure Clinic follow up scheduled for: 3 months with proBNP and BMP Danette Maxwell APRN 07/28/2019 documented in this encounter Plan of Treatment Upcoming Encounters Date Type Specialty Care Team Description 02/19/2022 Laboratory Appointment Lab 02/19/2022 Office Visit Cardiology Liz Poole PA [facility] [place], [place] [address] (Wo rk) 03/12/2022 Office Visit Cardiology Vitaliy Nobles MD [facility] CARDIOLOGY [place], [place] [address] (Wo rk) documented as of this encounter Results (ABNORMAL) Basic Metabolic Panel (non-fasting) (07/28/2019 8:36 AM EST) athologist Signature Glucose Lvl 153 65 - 199 [facility] mg/dL [facility] Comment: Diabetes: >=200 mg/dL plus symp toms BUN 22 (H) 10 - 20 mg/dL [facility] Creatinine 1.05 0.80 - 1.50 mg/dL [facility] Sodium 141 135 - 145 mmol/L [facility] Potassium 4.5 3.5 - 5.0 mmol/L [facility] Comment: Please note: ??Patients with WBC >100,00 0 may have falsely elevated Potassium levels. ??For accurate Potassium quantif ication in these patients send serum separator tube (gold top) for subsequent determinations. ??Contact the Clinical Chemistry Laboratory if there are any qu estions. Chloride 100 98 - 107 mmol/L [facility] CO2 29 22 - 31 mmol/L [facility] Anion Gap 12 5 - 15 mmol/L [facility] Calcium 9.3 8.5 - 10.5 mg/dL [facility] Estimated GFR 70 >=60 mL/min/1.73 m?? [facility] Comment: The eGFR was calculated using the CKD-EP I equation. As with all creatinine based estimates of kidney function, eGFR values calculated with the CKD-EPI equation are not accurate in patients wi th acute kidney failure, extremes of body mass or the acutely ill. http://[employer]/DHMCnkf eGFR 81 >=60 mL/min/1.73 m?? [facility] Comment: The eGFR was calculated using the CKD-EP I equation. As with all creatinine based estimates of kidney function, eGFR values calculated with the CKD-EPI equation are not accurate in patients wi th acute kidney failure, extremes of body mass or the acutely ill. http://[employer]/[facility]nkf Specimen Anatomical Collection Method Collection Time Receive d Time (Source) Location / / Volume Laterality Blood specimen 07/28/2019 8:36 AM 020 8:46 (specimen) EST AM EST Resulting Agency Comment Spec In Lab Danette Maxwell STACIE CHEMISTRY ORDERABLES Performing Organization Address City/State/ZIP [place] [address] (ABNORMAL) pro-Brain Natriuretic Peptide (07/28/2019 8:36 AM EST) P athologist Signature ProBNP 647 (H) <=125 pg/mL [facility] Specimen Anatomical Collection Method Collection Time Receive d Time (Source) Location / / Volume Laterality Blood specimen 07/28/2019 8:36 AM 020 8:46 (specimen) EST AM EST Resulting Agency Comment Spec In Lab Danette Maxwell STACIE CHEMISTRY ORDERABLES Performing Organization Address City/State/ZIP [place] [address] documented in this encounter Visit Diagnoses Diagnosis Chronic systolic heart failure ASHD (arteriosclerotic heart disease) Coronary atherosclerosis of unspecified type of vessel, [place] or graft S/P CABG x 3 Postsurgical aortocoronary bypass status MARIA VICTORIA (obstructive sleep apnea) on CPAP Obstructive sleep apnea (adult) (pediatr ic) Mixed hyperlipidemia documented in this encounter Care Teams Route Sales Manager Relationship Specialty Start Date End Date Lovely Vicente MD PCP - General 04/16/[address] [place] [address] documented as of this encounter
--- OUTSIDE RECORDS SUMMARY | 2022-02-06 13:31 | XMS_ITS | Encounter Summary ---
:1945 Author Organization [facility] [place] [address] Care Team Providers Name Role Phone Lovely Vicente MD Primary Care Provider Encounter Details Date Type Department Care Team Description 04/18/2018 Laboratory Appointment Lab 3L [facility] [place] [address] Social History Tobacco Use Types Packs/Day Years [...] 02/19/2022 Office Visit Cardiology Liz Poole PA [facility] er Cardiology Dept [place], [place] [address] (Wo rk) 03/12/2022 Office Visit Cardiology Vitaliy Nobles MD [facility] CARDIOLOGY [place], [place] [address] (Wo rk) documented as of this encounter Procedures Procedure Name Priority Date/Time Associated Comments Diagnosis TSH STAT 04/18/2018 9:19 AM Results f or this EDT procedure are i n the results section. PRO-BRAIN NATRIURETIC STAT 04/18/2018 9:19 AM Chronic systo lic Results for this PEPTIDE EDT heart failure procedure are in the results section. HEPATIC FUNCTION STAT 04/18/2018 9:19 AM Resul ts for this PANEL EDT procedure are i n the results section. BASIC METABOLIC PANEL STAT 04/18/2018 9:19 AM Chronic systo lic Results for this (NON-FASTING) EDT heart failure procedure are in the results section. documented in this encounter Results Hepatic Function Panel (04/18/2018 9:19 AM EDT) P athologist Signature Total Protein 7.6 6.1 - 8.0 [facility]AN gm/dL [facility] Albumin 4.0 3.2 - 5.2 [facility] gm/dL [facility] AST 36 0 - 39 [facility] unit/L [facility] ALT 27 0 - 55 [facility] unit/L [facility] Alk Phos 96 40 - 120 [facility] Hitmeister unit/L [facility] Total 0.7 0.2 - 1.3 [facility] Bilirubin mg/dL [facility] Bili, Direct 0.1 0.0 - 0.3 [facility]AN mg/dL [facility] Specimen Anatomical Collection Method Collection Time Receive d Time (Source) Location / / Volume Laterality Blood specimen Venous Draw / 04/18/2018 9:19 AM 2017 9:44 (specimen) Unknown EDT AM EDT Resulting Agency Comment Spec In Lab Danette Maxwell APRN CHEMISTRY ORDERABLES Performing Organization Address City/State/[place] [address] TSH (04/18/2018 9:19 AM EDT) athologist Signature TSH 1.77 0.27 - 4.20 [facility] mlU/ML [facility] Specimen Anatomical Collection Method Collection Time Receive d Time (Source) Location / / Volume Laterality Blood specimen Venous Draw / 04/18/2018 9:19 AM 2017 9:44 (specimen) Unknown EDT AM EDT Resulting Agency Comment Spec In Lab Danette Maxwell APRN CHEMISTRY ORDERABLES Performing Organization Address City/State/[place] [address] (ABNORMAL) Basic Metabolic Panel (non-fasting) (04/18/2018 9:19 AM EDT) P athologist Signature Glucose Lvl 167 65 - 199 [facility] mg/dL [facility] Comment: Diabetes: >=200 mg/dL plus symp toms BUN 18 10 - 20 mg/dL [facility] Creatinine 1.19 0.80 - 1.50 mg/dL [facility] Sodium 147 (H) 135 - 145 mmol/L [facility] Potassium 4.8 3.5 - 5.0 mmol/L [facility] Comment: Please note: ??Patients with [...] Gap 23 (H) 5 - 15 mmol/L [facility] Calcium 9.3 8.5 - 10.5 mg/dL [facility] Estimated GFR 61 >=60 mL/min/1.73 m?? [facility] Comment: The eGFR was calculated using the CKD-EP I equation. As with all creatinine based estimates of kidney function, eGFR values calculated with the CKD-EPI equation are not accurate in patients wi th acute kidney failure, extremes of body mass or the acutely ill. http://[employer]NIA/DHMCnkf eGFR 70 >=60 mL/min/1.73 m?? [facility] Comment: The eGFR was calculated using the CKD-EP I equation. As with all creatinine based estimates of kidney function, eGFR values calculated with the CKD-EPI equation are not accurate in patients wi th acute kidney failure, extremes of body mass or the acutely ill. http://[employer]/DHMCnkf Specimen Anatomical Collection Method Collection Time Receive d Time (Source) Location / / Volume Laterality Blood specimen 04/18/2018 9:19 AM 018 9:34 (specimen) EDT AM EDT Resulting Agency Comment Spec In Lab Danette Maxwell STACIE CHEMISTRY ORDERABLES Performing Organization Address City/[facility]/[place] [address] (ABNORMAL) pro-Brain Natriuretic Peptide (04/18/2018 9:19 AM EDT) P athologist Signature ProBNP 2,199 (H) <=125 [facility] pg/mL [facility] Specimen Anatomical Collection Method Collection Time Receive d Time (Source) Location / / Volume Laterality Blood specimen 04/18/2018 9:19 AM 018 9:34 (specimen) EDT AM EDT Resulting Agency Comment Spec In Lab Danette A Hans STACIE CHEMISTRY ORDERABLES Performing Organization Address City/[facility]/[place] [address] documented in this encounter Visit Diagnoses Diagnosis Chronic systolic heart failure documented in this encounter Care Teams Marker Maker Relationship Specialty Start Date End Date Lovely Vicente MD PCP - General 04/16/[address] [place] [address] documented as of this encounter
--- OUTSIDE RECORDS SUMMARY | 2022-02-06 13:31 | XMS_ITS | Encounter Summary ---
:1945 Author Organization [facility] [place] [address] Care Team Providers Name Role Phone Lovely Vicente MD Primary Care Provider Encounter Details Date Type Department Care Team Description 11/07/2019 TH Visit Cardiology at [facility] Danette Maxwell (arteriosclerotic heart disease); (TeleHealth) [facility] STACIE Gomes Cardiomyopathy, ischemic; [facility] S/P CABG x 3; [place], [place] MARIA VICTORIA (obstructive sleep apnea) on CPAP [phone] CARDIOLOGY [phone] [place], [place] [address] Social History Tobacco Use Types Packs/Day Years Used Date Former Smoker Cigarettes 3 5 Quit: 07/26/18 69 Smokeless Tobacco: Never Used Alcohol Use Standard Drinks/Week Comments No 0 (1 standard drink = 0.6 oz pure alcoho l) Sex Assigned at Date Recorded Not on file documented as of this encounter Progress Notes Danette Maxwell APRN - 11/07/2019 8:20 AM EDT Images from the original note were not included. CARDIOMYOPATHY/HEART FAILURE SERVICE TELEPHONE VISIT NOTE: Patient verbally consents to this telehealth visit and understands that this visit may be billed, similar to a clinic office visit. ID and CC: Don Fatima is a [...] anticoagulation. Discharge weight: 200 lb Last visit: 07/28/2019. No changes were made. He was feeling good. Interim events: No ED visits or hospitalizations Today: Feels pretty good Breathing is good. Has been out in tool shed working, raked his lawns and fertilized them Denies chest pain Very little lightheadedness or dizziness No pre-syncope or syncope No LE edema. No abdominal distention Numbness bilateral LE (chronic) Sleeping in his normal pattern. Using CPAP. No PND or orthopnea No palpitations Walking is so much better Patient Active Problem List ?? Diagnosis ??? [...] Melanoma ? Your Medications Accurate as of November 07, 2019 8:45 AM. If you have any questions, ask [...] by mouth daily. 500 mg Refills: 0 atorvastatin 40 mg Tab Commonly known as: Lipitor Take 20 mg by mouth daily. 20 mg Refills: 0 BD Ultra-Fine Mini Pen [...] 175 mcg Quantity: 102 tablet Refills: 3 lisinopriL 2.5 mg Tab Commonly known as: Prinivil;Zestril [...] Coumadin Device No EF now 40%-45% Patient reported VS: BP 151/83 HR 64 Weight: 189 lb ?? Lab data: No results for input(s): NA, K, CL, CO2, BUN, CREATININE, GLUCOSE in the last 168 hours. ProBNP Date Value Ref Range Status 07/28/2019 [...] studies: 07/28/2019 Echocardiogram: BP: 130/47 HR: 70 ?? SUMMARY: [...] regurgitation present. 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 4. HTN BP 151/83 ( reports that BP is not usually this high) Continue to monitor Lisinopril 2.5 mg daily ?? 5. Hx of hyperkalemia K+ 4.5 at last check 6. Post-op atrial fibrillation [id number] (CHF, HTN, DM, vascular disease, thromboembolism) Amiodarone discontinued Continue coumadin INR managed by PCP 7. PAD 08/06/2017: Right 1st, 2nd, 3rd toe amputation 08/11/2017: Left??femoral arterial access, RLE??angiogram, Balloon angioplasty of R PT with Eleazar 2.5 x 80 10/25/2017: right popliteal-pedal bypass at [facility] Continue Coumadin 8. Hypothyrodism S/p thyroidectomy for goiter Continue Levothyroxine ?? Plan: 1. A review of the active management and working diagnosis(es) was conducted. 2. The patient's medication list was updated and new Rxs given as needed. 3. Heart Failure Clinic follow up scheduled for: 3 months with proBNP and BMP ???I spent a total of 25 minutes associated with this encounter including chart review, the patient encounter, and documentation. We discussed signs and symptoms of heart failure and will plan for a clinic visit in 3 months with labs.?? Danette Maxwell APRN 11/07/2019 documented in this encounter Plan of Treatment Upcoming Encounters Date Type Specialty Care Team Description 02/19/2022 Laboratory Appointment Lab 02/19/2022 Office Visit Cardiology Liz Poole PA [facility] er Cardiology Dept [place], [place] [address] (Wo rk) 03/12/2022 Office Visit Cardiology Vitaliy Nobles MD [facility] CARDIOLOGY [place], [place] [address] (Wo rk) documented as of this encounter Visit Diagnoses Diagnosis ASHD (arteriosclerotic heart disease) Coronary atherosclerosis of unspecified type of vessel, [place] or graft Cardiomyopathy, ischemic Other specified forms of chronic ischemi c heart disease S/P CABG x 3 Postsurgical aortocoronary bypass status MARIA VICTORIA (obstructive sleep apnea) on CPAP Obstructive sleep apnea (adult) (pediatr ic) documented in this encounter Care Teams Wound Nurse Relationship Specialty Start Date End Date Lovely Vicente MD PCP - General 04/16/[address] [place], [place] [address] [address] [place] [address] documented as of this encounter
--- OUTSIDE RECORDS SUMMARY | 2022-02-06 13:31 | XMS_ITS | Encounter Summary ---
:1945 Author Organization [facility] [place] [address] Care Team Providers Name Role Phone Lovely Vicente MD Primary Care Provider Reason for Visit Reason Comments Skin Check Encounter Details Date Type Department Care Team Description 07/06/2018 Office Visit Dermatology at [facility], Rigoberto Yarbrough (actinic keratosis); MD SHAY Quick III (seborrheic keratosis); [address] [facility] History of melanoma; [place] [address] Skin exam for malignant neoplasm [phone] [facility] [place], [place] [address] Social History Tobacco Use Types Packs/Day Years Used Date Former Smoker Cigarettes 3 5 Quit: 07/26/18 69 Smokeless Tobacco: Never Used Alcohol Use Standard Drinks/Week Comments No 0 (1 standard drink = 0.6 oz pure alcoho l) Sex Assigned at Date Recorded Not on file documented as of this encounter Progress Notes Ab Hoffman LPN - 07/06/2018 8:00 AM EST DERMATOLOGY ESTABLISHED PATIENT CLINIC NOTE Date of service: 07/06/2018 Don Fatima : 1945 Provider: Rigoberto Garcia MD PROBLEM: skin exam SKIN HISTORY: 2006: Melanoma - 0.98 mm with a Ede Level IV, high on his mid back ?? Psoriasis HPI Don Fatima is a 73 y.o. year old male. Established patient last seen 01/06/18 by me. Here today for a complete skin cancer screening. No specific lesions that are concerning. No spots that are changing colors, itching, or bleeding. He has had a rough year after having a clot in the right leg - he had vascular surgery in [facility] while he lost several toes, they saved his leg. ADR: No Known Allergies CURRENT MEDICATIONS: Current Outpatient Medications Medication Sig Dispense Refill ??? gabapentin (NEURONTIN) 100 mg Capsule Take 300 mg by mouth daily. ??? AMIOdarone (CORDARONE; PACERONE) 200 mg Tablet Take 1 tablet by mouth daily. ??? levothyroxine (SYNTHROID) 175 mcg Tablet Take 1 tablet by mouth daily. 1 tablet daily 6 days perweek, and 2 tablets 1 day per week. 102 tablet 3 ??? meTOPROLOL succinate (TOPROL-XL) 25 mg Tablet Sustained Release 24 hr Take 25 mg by mouth daily. ??? insulin glargine Solution Inject 15 Units subcutaneously nightly. (Patient taking differently: Inject 7 Units subcutaneously nightly.) 10 mL 12 ??? insulin lispro (HUMALOG) Solution Inject 11 Units subcutaneously 3 times daily (with meals). (Patient taking differently: Inject 7 Units subcutaneously 3 times daily (with meals).) 10 mL 12 ??? polyethylene glycol (MIRALAX) 17 gram Powder in Packet Take 17 g by mouth daily as needed. 14 each 0 ??? melatonin 3 mg Tablet Take 2 tablets by mouth nightly. ??? lisinopril (PRINIVIL;ZESTRIL) 2.5 mg Tablet Take [...] by Other route 4 times daily. 0 ??? ascorbic acid, vitamin C, (VITAMIN C) 500 mg Tablet Take 500 mg by mouth daily. Winter months only ??? aspirin 81 mg EC tablet Take 81 mg by mouth daily. No current facility-administered medications for this visit. [...] pleasant, cooperative Skin: Patient was asked to disrobe to the level of their comfort. A total body skin exam except for areas covered by underwear was performed. This includes examination of the skin of the face, ears, neck, chest, axillae, left and right upper and lower extremities, hands and feet, abdomen, and except the areas covered by underwear were not examined. Significant skin findings: A. 0.2-0.3cm scaly irregular pink papule(s) on the right cheek x 2, left cheek, B. Multiple 0.4-1 cm, brown-black papules/plaques with waxy stuck on appearance on the trunk Occasional pigmented nevus on the trunk and extremities - even pigmentation; no unusual features on dermoscopy C. S/P melanoma on mid-back - No evidence of recurrence in scar on the mid back. No lesions suspicious for BCC or SCC at this time. No pigmented lesion suspicious for melanoma at this time. ASSESSMENT/PLAN: A. Actinic Keratosis - right cheek, left cheek - I discussed this condition with the patient and explored therapeutic options. I recommended this be treated with LN2, patient is in agreement to this treatment plan. Instructed to call if areas do not resolve as expected or if problems arise. If lesionsfail to resolve, further work-up may be needed. Procedure Note: Procedure: Destruction of lesion(s) with cryotherapy. Number: 2 Location: as above Discussed procedure and expectations including risks (including risk of hypopigmentation) and benefits. Verbal consent obtained. Frozen with LN2, 15-30 second thaw time, TWICE. There were no complications; the patient tolerated the procedure well. Post-procedure expectations and wound care were reviewed. B. Seborrheic Keratosis (asymptomatic)- occasional benign appearing nevus - trunk and extremities Monitor for change or symptoms - Etiology discussed - Patient reassured lesions are benign in nature - Explained that these are hereditary, adult onset and acquired. - Can develop anywhere on the body except for palms or soles - Treatment of an asymptomatic seborrheic keratosis is considered a cosmetic procedure and is not covered by insurance. C. History of Melanoma - mid back - No cervical, supraclavicular or axillary lymphadenopathy noted. - No signs of recurrence - Continue to monitor - Discussed importance of sun protection, sun avoidance strategies, protective clothing, and sunscreen. RTC -1 year for FSE or sooner as needed I am documenting this encounter acting as the scribe for and in the presence of Dr. Garcia.: AB HOFFMAN, MARCIE I, Hudson Morfin, have performed the documentation for this encounter in the presence of and acting as a scribe for RIGOBERTO GARCIA III, MD. I performed the above scribed service and agree with the accuracy of the documentation in this encounter. Rigoberto Garcia MD Section of Dermatology [facility] documented in this encounter Plan of Treatment Upcoming Encounters Date Type Specialty Care Team Description 02/19/2022 Laboratory Appointment Lab 02/19/2022 Office Visit Cardiology Liz Poole PA [facility] Cardiology [place], [place] [address] (Wo rk) 03/12/2022 Office Visit Cardiology Vitaliy Nobles MD [facility] CARDIOLOGY [place], [place] [address] (Wo rk) documented as of this encounter Visit Diagnoses Diagnosis AK (actinic keratosis) Actinic keratosis SK (seborrheic keratosis) Other seborrheic keratosis History of melanoma Personal history of malignant melanoma o f skin Skin exam for malignant neoplasm Screening for malignant neoplasm of the skin documented in this encounter Care Teams [employer] Cooking Relationship Specialty Start Date End Date Lovely Vicente MD PCP - General 04/16/[address] [place] [address] documented as of this encounter
--- OUTSIDE RECORDS SUMMARY | 2022-02-06 13:31 | XMS_ITS | Encounter Summary ---
:1945 Author Organization [place] [address] Care Team Providers Name Role Phone Lovely Vicente MD Primary Care Provider Encounter Details Date Type Department Care Team Description 12/08/2021 External Results Non-Invasive Cardiology Lab Mar y None [facility] [place] [address] Social History Tobacco Use Types Packs/Day [...] 02/19/2022 Office Visit Cardiology Liz Poole PA [facility] er Cardiology Dept [place], [place] [address] (Wo rk) 03/12/2022 Office Visit Cardiology Vitaliy Nobles MD [facility] ER CARDIOLOGY [place], [place] [address] (Wo rk) documented as of this encounter Procedures Procedure Name Priority Date/Time Associated Diagnosis Comme nts ECHO SCAN (SCAN) Routine 12/08/2021 Results for this procedure are in the resu lts section. documented in this encounter Results Scan Doc: Echo (12/08/2021) Narrative This result has an attachment that is no t available. None MEDIA MGR SCAN EXT ORDR/RSLT documented in this encounter Visit Diagnoses Not on filedocumented in this encounter Care Teams Bow Maker Production Relationship Specialty Start Date End Date Lovely Vicente MD PCP - General 04/16/[address] [place] [address] documented as of this encounter
--- OUTSIDE RECORDS SUMMARY | 2022-02-06 13:31 | XMS_ITS | Encounter Summary ---
:1945 [place] [address] Care Team Providers Name Role Phone Lovely Vicente MD Primary Care Provider Encounter Details Date Type Department Care Team Description 03/20/2021 Telephone Neurology at [facility] Hugo Gaston MD [facility], [place] [address] [place] [address] [phone] (Wo rk) Social History Tobacco Use Types Packs/Day Years Used Date Former Smoker Cigarettes 3 5 Quit: 07/26/18 69 Smokeless Tobacco: Never Used Alcohol Use Standard Drinks/Week Comments No 0 (1 standard drink = 0.6 oz pure alcoho l) Sex Assigned at Date Recorded Not on file documented as of this encounter Miscellaneous Notes Telephone Encounter - Hugo Gaston MD - 03/20/2021 6:03 PM EDT Call from [facility]. 76 M with h/o DM. CABG, AFib. Dizziness since 5 am. Double vision while driving. Intermittent symptoms till 1pm when he came to ED. Was off balance. Negative examination. 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 MRI negative. He's now better. Has atherosclerotic disease. Recommend adding aspirin 81 daily. Outpatient workup for any vestibular issues. Hugo Gaston MD Department of Neurology Pager # [phone] documented in this encounter Plan of Treatment Upcoming Encounters Date Type Specialty Care Team Description 02/19/2022 Laboratory Appointment Lab 02/19/2022 Office Visit Cardiology Liz Poole PA [facility] er Cardiology [place], [place] [address] (Wo rk) 03/12/2022 Office Visit Cardiology Vitaliy Nobles MD [facility] CARDIOLOGY [place], [place] [address] (Wo rk) documented as of this encounter Visit Diagnoses Not on filedocumented in this encounter Care Teams Police Officer Relationship Specialty Start Date End Date Lovely Vicente MD PCP - General 04/16/[address] [place] [address] documented as of this encounter
--- OUTSIDE RECORDS SUMMARY | 2022-02-06 13:31 | XMS_ITS | Encounter Summary ---
:1945 Author Organization [facility] [place] [address] Care Team Providers Name Role Phone Lovely Vicente MD Primary Care Provider Encounter Details Date Type Department Care Team Description 12/07/2021 Telephone Cardiology Eddi Briceño Jr., [facility] [place] [address] [facility] [phone] CARDIOLOGY DEPT [place], [place] [address] (Wo rk) Social History Tobacco Use Types Packs/Day Years Used Date Former Smoker Cigarettes 3 5 Quit: 07/26/18 69 Smokeless Tobacco: Never Used Alcohol Use Standard Drinks/Week Comments No 0 (1 standard drink = 0.6 oz pure alcoho l) Sex Assigned at Date Recorded Not on file documented as of this encounter Miscellaneous Notes Telephone Encounter - Eddi Briceño Jr., MD - 12/07/2021 10:52 PM EDT Contacted by OSH ED for cardiology consultation. History taking and objective data are per the OSH ED provider/staff member. Referring Location: [facility] Referring Provider: Marisela Dean, PACKAGE DYEING MACHINE OPERATOR [address] [place] [address] Don Veda Kushal 76 y.o. w / a pmh sig for ischemic CDMO-EF 40-45%, Late STEMI 2017 s/p CABG, HTN, DM2, COPD, DLD, GERD, and AF on coumadin presenting w/ progressive SOB over the past 2 days. The pt states that he wasn't doing anything specific and noticed his breathing became more difficult. His breathing continued to deteriorate, so he presented via EMS this evening. He denied having chest pain, butdid attest some nausea, and further stated this episode feels like his previous heart attack. He reportedly appears dyspneic and is almost tripoding. Current Vitals: 124/61 HR90 RR 27, 92% on 4L NC The pt has received IV solumedrol and nebulizer treatments. Troponin: 4000 (ULN 60) BNP: 5400 Creatinine: 1.5 WBC: 13 H/H: 12.6/38 Platelets: 197 INR: 1.7 CXR: b/l pulmonary vascular congestion and cardiomegaly. EKG: SR at 97 bpm, LAFB, poor R wave progression, septal NH, and lateral STD, overall no significantchange from 2020. A/P: Given above history, presentation, and data, this episode most likely represents likey I NSTEMI. The ekg does not meet criteria for stemi and reassuringly it is unchanged from prior. At present heremains chest pain free, however, the pt is reportedly tripoding and his RR is 27. CXR on my review c oncerning for fairly significant pulmonary edema. Recommended BiPAP, Lasix 80 mg IV, +/- nitro gtt (as BP tolerates), VBG, 600 mg of plavix, and heparin. The pt has been accepted in transfer. The OSH will contact us w/ any deterioration in clinical status. documented in this encounter Plan of Treatment Upcoming Encounters Date Type Specialty Care Team Description 02/19/2022 Laboratory Appointment Lab 02/19/2022 Office Visit Cardiology Liz Poole PA [facility] Cardiology Dept [place], [place] [address] (Wo rk) 03/12/2022 Office Visit Cardiology Vitaliy Nobles MD [facility] ER CARDIOLOGY [place], [place] [address] (Wo rk) documented as of this encounter Visit Diagnoses Not on filedocumented in this encounter Care Teams Traffic Police Officer Relationship Specialty Start Date End Date Lovely Vicente MD PCP - General 04/16/[address] [place] [address] documented as of this encounter
--- OUTSIDE RECORDS SUMMARY | 2022-02-06 13:31 | XMS_ITS | Encounter Summary ---
:1945 Author Organization [facility] [place] [address] Care Team Providers Name Role Phone Lovely Vicente MD Primary Care Provider Encounter Details Date Type Department Care Team Description 04/16/2021 Laboratory Appointment Lab 3L [facility] systolic [facility] [place] [id number] Social History Tobacco Use Types Packs/Day Years [...] 02/19/2022 Office Visit Cardiology Liz Poole PA [facility] er Cardiology Dept [place], [place] [address] (Wo rk) 03/12/2022 Office Visit Cardiology Vitaliy Nobles MD [facility] ER CARDIOLOGY [place], [place] [address] (Wo rk) documented as of this encounter Procedures Procedure Name Priority Date/Time Associated Diagnosis Comme nts HC PROBNP Routine 04/16/2021 9:58 AM Chronic systolic Resul ts for this EDT heart failure procedure are in the results section. HC VENIPUNCTURE Routine 04/16/2021 9:58 AM Chronic systolic Re sults for this EDT heart failure procedure are in the results section. documented in this encounter Results (ABNORMAL) pro-Brain Natriuretic Peptide (04/16/2021 9:58 AM EDT) athologist Signature ProBNP 523 (H) <=124 pg/mL [facility] Specimen Anatomical Collection Method Collection Time Receive d Time (Source) Location / / Volume Laterality Blood 04/16/2021 9:58 AM EDT 10:02 AM EDT Resulting Agency Comment Spec In Lab Zulma Plunkett MD CHEMISTRY ORDERABLES Performing Organization Address City/State/ZIP [place] [address] (ABNORMAL) Basic Metabolic Panel (non-fasting) (04/16/2021 9:58 AM EDT) athologist Signature Glucose Lvl 77 65 - 199 [facility] mg/dL [facility] Comment: Diabetes: >=200 mg/dL plus symp toms BUN 23 (H) 10 - 20 mg/dL [facility] Creatinine 1.26 0.80 - 1.50 mg/dL [facility] Sodium 140 135 - 145 mmol/L [facility] Potassium 5.2 (H) 3.5 - 5.0 mmol/L [facility] Comment: Please note: ??Patients with WBC >100,00 0 may have falsely elevated Potassium levels. ??For accurate Potassium quantif ication in these patients send serum separator tube (gold top) for subsequent determinations. ??Contact the Clinical Chemistry Laboratory if there are any qu estions. Chloride 103 98 - 107 mmol/L [facility] CO2 28 22 - 31 mmol/L [facility] Anion Gap 9 5 - 15 mmol/L [facility] Calcium 9.3 8.5 - 10.5 mg/dL [facility] Estimated GFR 55 (L) >=60 mL/min/1.73 m?? [facility] [...] Organization Address City/State/[place] [address] documented in this encounter Visit Diagnoses Diagnosis Chronic systolic heart failure documented in this encounter Care Teams Ambulatory Service Representative Relationship Specialty Start Date End Date Lovely Vicente MD PCP - General 04/16/[address] [place] [address] documented as of this encounter
--- OUTSIDE RECORDS SUMMARY | 2022-02-06 13:31 | XMS_ITS | Encounter Summary ---
:1945 Author Organization [facility] [place] [address] Care Team Providers Name Role Phone Lovely Vicente MD Primary Care Provider Encounter Details Date Type Department Care Team Description 03/20/2021 Ancillary Procedure Radiology Library [place] [address] [place] [address] [phone] Social History Tobacco Use Types Packs/Day Years [...] 02/19/2022 Office Visit Cardiology Liz Poole PA [facility] er Cardiology Dept [place], [place] [address] (Wo rk) 03/12/2022 Office Visit Cardiology Vitaliy Nobles MD [facility] CARDIOLOGY [place], [place] [address] (Wo rk) documented as of this encounter Procedures Procedure Name Priority Date/Time Associated Diagnosis Comme nts FILM LIBRARY Routine 03/20/2021 5:22 PM Results f or this STORAGE ONLY MR EDT procedure ar e in HEAD the results section. documented in this encounter Results Film Library- Storage Only MR Head (03/20/2021 5:22 PM EDT) Specimen (Source) Anatomical Location Collection Method / Collectio n Time Received Time / Laterality Volume Narrative MAGDA - 03/20/2021 5:22 PM EDT This exam is auto-finalizing. It's purpo se is for storage only. Hugo Gaston MD IMG FILM LIBRARY ORDERABLES Performing Organization Address City/State/ZIP Code Phon e Number [place], [place] documented in this encounter Visit Diagnoses Not on filedocumented in this encounter Care Teams Drainman Relationship Specialty Start Date End Date Lovely Vicente MD PCP - General 04/16/[address] [place] [address] documented as of this encounter
--- OUTSIDE RECORDS SUMMARY | 2022-02-06 13:31 | XMS_ITS | Encounter Summary ---
:1945 Author Organization [facility] [place] [address] Care Team Providers Name Role Phone Lovely Vicente MD Primary Care Provider Encounter Details Date Type Department Care Team Description 03/20/2021 Ancillary Procedure Radiology Library [place] [address] [place] [address] [phone] Social History Tobacco Use Types Packs/Day Years [...] 02/19/2022 Office Visit Cardiology Liz Poole PA [facility] er Cardiology Dept [place], [place] [address] (Wo rk) 03/12/2022 Office Visit Cardiology Vitaliy Nobles MD [facility] CARDIOLOGY [place], [place] [address] (Wo rk) documented as of this encounter Procedures Procedure Name Priority Date/Time Associated Diagnosis Comme nts FILM LIBRARY Routine 03/20/2021 5:23 PM Results f or this STORAGE ONLY DX EDT procedure ar e in CHEST the results section. documented in this encounter Results Film Library- Storage Only DX Chest (03/20/2021 5:23 PM EDT) Specimen (Source) Anatomical Location Collection Method / Collectio n Time Received Time / Laterality Volume Narrative RONNIE MAN - 03/20/2021 5:23 PM EDT This exam is auto-finalizing. It's purpo se is for storage only. Hugo Gaston MD IMG FILM LIBRARY ORDERABLES Performing Organization Address City/State/ZIP Code Phon e Number [place], [place] documented in this encounter Visit Diagnoses Not on filedocumented in this encounter Care Teams Insole And Outsole Preparer Relationship Specialty Start Date End Date Lovely Vicente MD PCP - General 04/16/[address] [place] [address] documented as of this encounter
--- OUTSIDE RECORDS SUMMARY | 2022-02-06 13:31 | XMS_ITS | Encounter Summary ---
:1945 Author Organization [facility] [place] [address] Care Team Providers Name Role Phone Lovely Vicente MD Primary Care Provider Reason for Referral Diagnostic Test (Routine) - Closed Specialty Diagnoses / Procedures Referred By Contact Refer red To Contact Cardiology Diagnoses Chronic systolic heart failure Danette Maxwell APRN [facility] Non-Inv Card Lab Procedures Echocardiogram Transthoracic(Leb) [facility] [place] [address] [place] [address] Referral ID Status Reason Start Date Expiration Date Visits V isits Requested Authorized [id number] Closed Specialty 07/17/2019 09/14/2019 1 1 Service Requested Reason for Visit Diagnostic Test (Routine) - Closed Specialty Diagnoses / Procedures Referred By Contact Refer red To Contact Cardiology Diagnoses Chronic systolic heart failure Danette Maxwell APRN [facility] Non-Inv Card Lab Procedures Echocardiogram Transthoracic(Leb) [facility] [place] [address] [place] [address] Referral ID Status Reason Start Date Expiration Date Visits V isits Requested Authorized [id number] Closed Specialty 07/17/2019 09/14/2019 1 1 Service Requested Encounter Details Date Type Department Care Team Description 07/28/2019 Hospital Encounter Non-Invasive Chronic s ystolic heart [place] [address] Social History Tobacco Use Types Packs/Day Years Used Date Former Smoker Cigarettes 3 5 Quit: 07/26/18 69 Smokeless Tobacco: Never Used Alcohol Use Standard Drinks/Week Comments No 0 (1 standard drink = 0.6 oz pure alcoho l) Sex Assigned at Date Recorded Not on file documented as of this encounter Medications at Time of Discharge Medication Sig Dispensed Refills Start Date End Date LANTUS SOLOSTAR U-100 35 Units nightly. 0 [...] mg Tablet 2 times daily (with meals). ACCU-CHEK TERA PLUS 2-3 times daily 100 each 1 07/14/2017 TEST STRP Strip BD INSULIN PEN NEEDLE 1 each by Other route 0 UF MINI 31 gauge x 4 times daily. 10/08 Needle acetaminophen Take 2 tablets by 0 11/02/2017 07/0 01/2022 (TYLENOL) 650 mg mouth as needed. Tablet Sustained Release ferrous sulfate 325 mg Take 325 mg by mouth 0 11/07/2019 (65 mg iron) Tablet daily (with breakfast). insulin lispro Inject 11 Units 10 mL 12 08/16/201709/06 (HUMALOG) Solution subcutaneously 3 times daily (with meals). lisinopril Take 2.5 mg by mouth 0 02/24 (PRINIVIL;ZESTRIL) 2.5 daily. mg Tablet furosemide (LASIX) 20 Take 2 tablets by 60 tablet 3 018 09/06/2019 mg Tablet mouth daily. clobetasol (TEMOVATE) Apply 1 Application 1 06/2009/06/2019 0.05 % Solution topically 2 times daily. warfarin (COUMADIN) Take 1 tablet by mouth 0 06/2612/12/2021 2.5 mg Tablet daily. atorvastatin (LIPITOR) Take 1 tablet by mouth 90 tablet 3 1 09/14/2016 09/06/2019 40 mg Tablet every evening. documented as of this encounter Plan of Treatment Upcoming Encounters Date Type Specialty Care Team Description 02/19/2022 Laboratory Appointment Lab 02/19/2022 Office Visit Cardiology Liz Poole PA [facility] Cardiology Dept [place], [place] [address] (Wo rk) 03/12/2022 Office Visit Cardiology Vitaliy Nobles MD [facility] CARDIOLOGY [place], [place] [address] (Wo rk) documented as of this encounter Procedures Procedure Name Priority Date/Time Associated Comments Diagnosis ECHOCARDIOGRAM COMPLETE Routine 07/28/2019 8:19 AM Chronic sys tolic Results for this W CONTRAST EST heart failure procedure are in the results section. documented in this encounter Results ECHOCARDIOGRAM COMPLETE W CONTRAST (07/28/2019 8:19 AM EST) P athologist Signature EF 40 [facility] Specimen (Source) Anatomical Location Collection Method / Collectio n Time Received Time / Laterality Volume 07/28/2019 Narrative [facility] - 07/28/2019 8:38 AM EST Procedure: ?Transthoracic Echocardiogram Patient: ?NATALYA Mccollum ? (Age): 1945(74y) Med Rec#: ? [id number] ?Sex: ?M ? Site Loc: ? [facility] ?Ht / Wt: ??172(cm)/81(kg) Pt. Loc: ?Echo Lab ?BSA: ?1 Study Date: ?? 07/28/2019 ?Pt. Type: Outpatient Tape: ? Referring: MARY ELLEN Reading: Ifeanyi Truong ([id number]) Material Preparation Worker: Fadumo Flanagan RDCS, FASE Diagnosis: *Chronic systolic [...] E-wave Vmax ?1 ?m/sec ? MV deceleration dqay530.5 ? msec ? MV A-wave Vmax ?1 [...] ? Pulmonic Valve/Qp:Qs ?Value ?Units (Range) ? CO end-diastolic Vma1.1 ?m/sec ? Wall Motion: Segment Name ?Rest ? Base-Anteroseptal ?? Normal ? Base-Anterior ? Normal ? Base-Anterolateral ??Normal ? Base-Posterolateral Normal ? Base-Inferior ? Akinetic ? Base-Inferoseptal ?? Normal ? Mid-Anteroseptal ?Normal ? Mid-Anterior ?Hypokinetic ? Mid-Anterolateral ?? Normal ? Mid-Posterolateral ??Normal ? Mid-Inferior ?Hypokinetic ? Mid-Inferoseptal ?Normal ? [place]-Septal ? Normal ? [place]-Anterior ? Hypokinetic ? [place]-Lateral ?Normal ? [place]-Inferior ? Akinetic ? [place]-Tip ?Hypokinetic ? This report has been electronically sign ed by: _ Ifeanyi Truong M.D. ? 07/28/2019 0 8:38:01 Images reviewed and interpretation verholger iewanda [facility] Cardiac Ultrasound Laboratory Procedure Note Ifeanyi Truong MD - 07/28/2019Formatt ing of this note might be different from the original. Procedure: Transthoracic Echocardiogram Patient: NATALYA MCBRIDE(Age): [birth year]74y) Med Rec#: [id number] Sex: M [place] Loc: [facility] Ht / Wt: 172(cm)/81(kg) Pt. Loc: Echo Lab BSA: 1.94 Study Date: 07/28/2019 Pt. Type: Outpati ent Tape: Referring: MARY ELLEN Reading: Ifeanyi Truong ([id number]) Material Preparation Worker: Fadumo Flanagan RDCS, REGINA Diagnosis: *Chronic systolic [...] MV E-wave Vmax 1 m/sec MV deceleration dqys278.5 msec MV A-wave Vmax 1 m/sec MV [...] 0.7 ratio Pulmonic Valve/Qp:Qs Value Units (Range) CO end-diastolic Vma1.1 m/sec Wall Motion: Segment Name Rest Base-Anteroseptal Normal Base-Anterior Normal Base-Anterolateral Normal Base-Posterolateral Normal Base-Inferior Akinetic Base-Inferoseptal Normal Mid-Anteroseptal Normal Mid-Anterior Hypokinetic Mid-Anterolateral Normal Mid-Posterolateral Normal Mid-Inferior Hypokinetic Mid-Inferoseptal Normal [place]-Septal Normal [place]-Anterior Hypokinetic [place]-Lateral Normal [place]-Inferior Akinetic [place]-Tip Hypokinetic This report has been electronically sign ed by: _ Ifeanyi rTuong M.D. 07/28/2019 08:38:0 1 Images reviewed and interpretation verif ied [facility] Cardiac Ultrasound Laboratory Danette A Hans WELL LOGGER ECHO ORDERABLES Performing Organization Address City/State/ZIP Code Phon e Number [facility] documented in this encounter Visit Diagnoses Diagnosis Chronic systolic heart failure documented in this encounter Administered Medications Inactive Administered Medications - up to 3 most recent administrations Medication Order MAR Action Action Date Dose Rate Site perflutren protein-A microspheres Given 07/28/2019 8:45 AM EST 3 mLs (OPTISON) 0.22 mg/mL injection 3 mL 3 mL, Intravenous, ONCE, 1 dose, On Wed07/28/19 at 0845, Routine documented in this encounter Care Teams Assistant Corporate Secretary Relationship Specialty Start Date End Date Lovely Vicente MD PCP - General 04/16/[address] [place] [address] documented as of this encounter
--- OUTSIDE RECORDS SUMMARY | 2022-02-06 13:31 | XMS_ITS | Encounter Summary ---
:1945 Author Organization [facility] [place] [address] Care Team Providers Name Role Phone Lovely Vicente MD Primary Care Provider Reason for Visit Reason Onset Date Comments Other 03/24/2019 cardiac clearance ne eded Encounter Details Date Type Department Care Team Description 03/24/2019 Telephone Cardiology at [facility] Danette Maxwell, Other (cardiac [facility] [place] clearance needed) [place] [address] CARDIOLOGY [place], [place] [address] (Wo rk) Social History Tobacco Use Types Packs/Day Years Used Date Former Smoker Cigarettes 3 5 Quit: 07/26/18 68 Smokeless Tobacco: Never Used Alcohol Use Standard Drinks/Week Comments No 0 (1 standard drink = 0.6 oz pure alcoho l) Sex Assigned at Date Recorded Not on file documented as of this encounter Miscellaneous Notes Telephone Encounter - Cami Griffith - 03/24/2019 10:40 AM EDT Leonela from [facility] [place] called requesting cardiac clearance for this patient who is to have a colonoscopy on 04/04/19. He is on anticoagulation and they will need to bridge him. Their phone # [phone], fax# [phone]. Thank you. documented in this encounter Plan of Treatment Upcoming Encounters Date Type Specialty Care Team Description 02/19/2022 Laboratory Appointment Lab 02/19/2022 Office Visit Cardiology Liz Poole PA [facility] Cardiology Dept [place], [place] [address] (Wo rk) 03/12/2022 Office Visit Cardiology Vitaliy Nobles MD [facility] CARDIOLOGY [place], [place] [address] (Wo rk) documented as of this encounter Visit Diagnoses Not on filedocumented in this encounter Care Teams Defence Intelligence Analyst Relationship Specialty Start Date End Date Lovely Vicente MD PCP - General 04/16/[address] [place] [address] documented as of this encounter
--- OUTSIDE RECORDS SUMMARY | 2022-02-06 13:31 | XMS_ITS | Encounter Summary ---
:1945 Author Organization [facility] [place] [address] Care Team Providers Name Role Phone Lovely Vicente MD Primary Care Provider Encounter Details Date Type Department Care Team Description 12/07/2021 External [place] [address] Social History Tobacco Use Types Packs/Day [...] 02/19/2022 Office Visit Cardiology Liz Poole PA [facility] Cardiology Dept [place], [place] [address] (Wo rk) 03/12/2022 Office Visit Cardiology Vitaliy Nobles MD [facility] CARDIOLOGY [place], [place] [address] (Wo rk) documented as of this encounter Procedures Procedure Name Priority Date/Time Associated Diagnosis Comme nts ECG SCAN Routine 12/07/2021 Results for thi s procedure are in the resu lts section. documented in this encounter Results Scan Doc: ECG (12/07/2021) Narrative This result has an attachment that is no t available. Historical Provider MEDIA MGR SCAN EXT ORDR/RSLT documented in this encounter Visit Diagnoses Not on filedocumented in this encounter Care Teams Customer Quality Engineer Relationship Specialty Start Date End Date Lovely Vicente MD PCP - General 04/16/[address] [place] [address] documented as of this encounter
--- OUTSIDE RECORDS SUMMARY | 2022-02-06 13:31 | XMS_ITS | Encounter Summary ---
:1945 Author Organization [facility] Address [facility] [place] [address] Care Team Providers Name Role Phone Lovely Vicente MD Primary Care Provider Encounter Details Date Type Department Care Team Description 01/02/2020 Office Visit Dermatology at [facility] Forman ctinic keratoses; Abdelrahman HOOPER MD History of melanoma; [address] [facility] History of dysplastic nevus; [place] [address] Multiple benign nevi; [phone] [facility] Seborrheic yossi [place]; RD-DERMATOLGY Skin exam for malignant neoplasm [place], [place] [address] Social History Tobacco Use Types Packs/Day Years Used Date Former Smoker Cigarettes 3 5 Quit: 07/26/18 68 Smokeless Tobacco: Never Used Alcohol Use Standard Drinks/Week Comments No 0 (1 standard drink = 0.6 oz pure alcoho l) Sex Assigned at Date Recorded Not on file documented as of this encounter Progress Notes Sanam Koo [facility] - 01/02/2020 7:30 AM EDT DERMATOLOGY ESTABLISHED PATIENT CLINIC NOTE Date of service: 01/02/2020 Don Fatima : 1945 Provider: Rigoberto Garcia MD PROBLEM: FSE - history of melanoma SKIN HISTORY: 11/24/2016: Right suprascapular, moderately dysplastic nevus (shave biopsy) Right mid back, moderately dysplastic nevus (shave biopsy) Mid upper abdomen, severely dysplastic nevus (excised, 12/03/2016) 07/31/2013: Right abdomen, moderately dysplastic nevus (shave biopsy) 10/04/2012: Left mid chest, moderately dysplastic nevus (shave biopsy) 02/12/2006: Right supraclavicular, SLNB negative Left supraclavicular, SLNB negative 12/29/2005: Mid upper back, melanoma, 0.98mm (excised, 02/12/2006) - Actinic keratoses (LN2) - Psoriasis HPI Don Fatima is a 74 y.o. year old male. Patient is here for a FSE. Denies any new or concerning spots. No significant health issues since last skin exam. Recent heart and circulation check was good. Pt last seen on 07/12/19. Procedure Screening Questions: Allergy to lidocaine or epinephrine:??No Blood thinners: No Pacemaker/defibrillator:??No Heart valves:??No Joint replacements:??No ADR: No Known Allergies CURRENT MEDICATIONS: Current Outpatient Medications Medication Sig Dispense Refill ??? atorvastatin (Lipitor) 40 mg Tablet Take 20 mg by mouth daily. ??? furosemide (Lasix) 20 mg Tablet Take 20 mg by mouth daily. ??? insulin lispro (HumaLOG) Insulin Pen Inject 15 Units subcutaneously 3 times daily (before meals). ??? LANTUS SOLOSTAR U-100 INSULIN pen 25 Units. ??? ascorbic acid, Vitamin C, (VITAMIN C) [...] Take 25 mg by mouth daily. ??? lisinopril (PRINIVIL;ZESTRIL) 2.5 mg Tablet Take 2.5 mg by mouth daily. ??? Magnesium Oxide 500 mg Capsule Take 500 mg by mouth daily. ??? warfarin (COUMADIN) 2.5 mg Tablet Take 1 tablet by mouth daily. (Patient taking differently: Take 2.5 mg by mouth daily. Variable dosing monitored by PCP) ??? ACCU-CHEK TERA PLUS TEST STRP Strip [...] complaints EXAM General: NAD, pleasant, cooperative Skin: A full body skin exam was performed. This includes examination of the skin of the face, ears, scalp, neck, chest, axillae, back, abdomen, left and right upper and lower extremities, hands, feet, and buttocks. The genitalia were also examined with patient consent. Significant skin findings: A. Left ear x1, right ear x1: 0.2-0.3cm scaly irregular pink papules. B. Mid upper back: Well-healed scar s/p excision.- S/P melanoma C. Mid upper abdomen: Well-healed scar s/p excision- S/P.dysplastic nevus D. Trunk and extremities: Multiple, 0.3-0.5cm, medium-brown, evenly-pigmented macules and papules. All with regular pigment pattern on dermoscopy. No pigmented lesions suspicious for melanoma. E. Trunk and extremities: 0.4-0.6cm brown papules with waxy, stuck-on appearance. ASSESSMENT/PLAN: A. Actinic Keratoses - Bilateral ears - I discussed this condition with the patient and explored therapeutic options. I recommended this be treated with LN2, patient is in agreement to this treatment plan. Instructed to call if areas do not resolve as expected or if problems arise. If lesions fail to resolve, further work-up may be needed. Procedure Note: Procedure: Destruction of lesions with cryotherapy. Number: 2 Location: as above Discussed procedure and expectations including risks (including risk of hypopigmentation) and benefits. Verbal consent obtained. Frozen with LN2, 15-30 second thaw time, TWICE. There were no complications; the patient tolerated the procedure well. Post-procedure expectations and wound care were reviewed. B. History of Melanoma, 0.98mm - Mid upper back - Well-healed surgical scar, no signs of recurrence. - Continue to monitor - no adenopathy noted - Call if problems arise - Discussed importance of sun protection, sun avoidance strategies, protective clothing, and sunscreen. C. History of Severely Dysplastic Nevus - Mid upper abdomen - Well-healed surgical scar, no signs ofrecurrence. - Continue to monitor - Call if problems arise - Discussed importance of sun protection, sun avoidance strategies, protective clothing, and sunscreen. D. Benign appearing nevi with even pigmentation and well defined margins are noted (asymptomatic) - Discussed benign nature of lesion and provided reassurance - No treatment necessary at this time - Observe skin for change in color, size or character. Call if such occur E. Seborrheic Keratoses (asymptomatic)- trunk and extremities Monitor for change or symptoms - Etiology discussed - Patient reassured lesions are benign in nature - Explained that these are hereditary, adult onset and acquired. - Can develop anywhere on the body except for palms or soles - Treatment of an asymptomatic seborrheic keratosis is considered a cosmetic procedure and is not covered by insurance. RTC - 6 months for FSE, sooner if needed. Appointment routed for scheduling. Instructed patient to call with any questions or concerns. I am documenting this encounter acting as the scribe for and in the presence of Dr. Garcia.: JOHNSON Ryder and Sita Perez I performed the above scribed service and agree with the accuracy of the documentation in this encounter. Rigoberto Garcia MD Section of Dermatology [facility] documented in this encounter Plan of Treatment Upcoming Encounters Date Type Specialty Care Team Description 02/19/2022 Laboratory Appointment Lab 02/19/2022 Office Visit Cardiology Liz Poole PA [facility] [place], [place] [address] (Wo rk) 03/12/2022 Office Visit Cardiology Vitaliy Nobles MD [facility] CARDIOLOGY [place], [place] [address] (Wo rk) documented as of this encounter Visit Diagnoses Diagnosis Actinic keratoses Actinic keratosis History of melanoma Personal history of malignant melanoma o f skin History of dysplastic nevus Personal history of diseases of skin and subcutaneous tissue Multiple benign nevi Benign neoplasm of skin, site unspecifie d Seborrheic keratoses Other seborrheic keratosis Skin exam for malignant neoplasm Screening for malignant neoplasm of the skin documented in this encounter Care Teams Director Statistical Programming Relationship Specialty Start Date End Date Lovely Vicente MD PCP - General 04/16/[address] [place] [address] documented as of this encounter
--- OUTSIDE RECORDS SUMMARY | 2022-02-06 13:31 | XMS_ITS | Encounter Summary ---
:1945 Author Organization [facility] [place] [address] Care Team Providers Name Role Phone Lovely Vicente MD Primary Care Provider Encounter Details Date Type Department Care Team Description 12/07/2021 Ancillary Procedure [facility] Lovely murillo MD [facility] [address] [phone] (Wo rk) [phone] Social History Tobacco Use Types Packs/Day Years [...] 02/19/2022 Office Visit Cardiology Liz Poole PA [facility] Medical [facility] er Cardiology Dept [place], [place] [address] (Wo rk) 03/12/2022 Office Visit Cardiology Vitaliy Nobles MD [facility] ER CARDIOLOGY [place], [place] [address] (Wo rk) documented as of this encounter Procedures Procedure Name Priority Date/Time Associated Diagnosis Comme nts FILM LIBRARY Routine 12/07/2021 11:06 PM Results for this STORAGE ONLY DX EDT procedure ar e in CHEST the results section. documented in this encounter Results Film Library- Storage Only DX Chest (12/07/2021 11:06 PM EDT) Specimen (Source) Anatomical Location Collection Method / Collectio n Time Received Time / Laterality Volume Narrative MAGDA - 12/07/2021 11:06 PM EDT This exam is auto-finalizing. It's purpo se is for storage only. Lovely Vicente MD IMG FILM LIBRARY ORDERABLES Performing Organization Address City/State/ZIP Code Phon e Number [place], [place] documented in this encounter Visit Diagnoses Not on filedocumented in this encounter Care Teams Security Representative Relationship Specialty Start Date End Date oLvely Vicente MD PCP - General 04/16/[address] [place] [address] documented as of this encounter
--- OUTSIDE RECORDS SUMMARY | 2022-02-06 13:31 | XMS_ITS | Encounter Summary ---
:1945 Author Organization [facility] [place] [address] Care Team Providers Name Role Phone Lovely Vicente MD Primary Care Provider Reason for Visit Auth/Cert Specialty Diagnoses / Procedures Referred By Contact Refer red To Contact Diagnoses NSTEMI Procedures emerg ipi Referral ID Status Reason Start Date Expiration Date Visits Requ ested Visits Authorized [id number] 1 1 Encounter Details Date Type Department Care Team Description 12/10/2021 Surgery Uncrater Asa Coulter MD CARDIAC CATHETERIZATION [facility] [place] [address] [place] [address] [phone] (Wo rk) Social History Tobacco Use Types Packs/Day Years Used Date Former Smoker Cigarettes 3 5 Quit: 07/26/18 Smokeless Tobacco: Never Used Alcohol Use Standard Drinks/Week Comments No 0 (1 standard drink = 0.6 oz pure alcoho l) Sex Assigned at Date Recorded Not on file documented as of this encounter Last Filed Vital Signs Vital Sign Reading Time Taken Comments Blood Pressure 110/68 12/10/2021 7:19 AM EDT Pulse 64 12/10/2021 7:19 AM EDT Temperature 36.5 ??C (97.7 ??F) 12/10/2021 7:19 AM EDT Respiratory Rate 18 12/10/2021 7:19 AM EDT Oxygen Saturation 99% 12/10/2021 7:19 AM EDT Inhaled Oxygen Concentration - - Weight 88.7 kg (195 lb 8.8 oz) 12/10/2021 4:32 AM EDT Height 172.7 cm (5' 8) 12/08/2021 3:39 PM EDT Body Mass Index 28.96 12/08/2021 3:39 PM EDT documented in this encounter Discharge Summaries Iker Cuevas MD - 12/09/2021 1:49 PM EDT Images from the original note were not included. Discharge Summary Patient Name: Don Fatima Patient Age: 76 y.o. Language: New Zealander Race: White Ethnicity: Not nor Admit date: [...] Peter PA-C Kelly LaFlamme PA-C Cardiovascular Medicine [phone] Discharge Diagnoses (Hospital Problems) and Secondary Diagnoses [...] 3.75 guiding catheter and a 3.5 Fr [place] [facility] 20 Mhz using Manual pullback. Imaging was successful. Image quality was good. The ostial LCX showed moderate diffuse atherosclerotic plaque with scattered three quadrant calcification. Measurements were performed after pre-dilation. Post Intervention: The stent was well expanded and apposed. Intravascular Ultrasound was performed in the distal LM using a 7 Fr EBU 3.75 guiding catheter and a 3.5 Fr [place] [facility] 20 Mhz using Manual pullback. Imaging was successful. Image quality was good. The distal LM showed moderate diffuse atherosclerotic plaque. Post Intervention: The stent was well expanded and apposed. Indication for Intervention: Coronary intervention was indicated for primary therapy for an acute myocardial infarction. The priority for the procedure was Urgent. The [facility] indication for the procedure was NSTE-ACS. LVEF [...] may require modification of this regimen. Consult [facility] Interventional Cardiology for questions. The 1 year [...] the saphenous vein graft to the Diagonal OM1 * Moderate pulmonary hypertension * Elevated pulmonary [...] vascular congestion and cardiomegaly. ?? TTE from [facility] 12/08/21 ? Prior Cardiac Studies: TTE 07/28/2019 [...] mitral regurgitation present. History of Presentation: Don Fatima is a 76 y.o. male with history of CAD status post three-vessel CABG (THOMPSON-LAD, sequential SVG-OM1-D1) 07/07/2017 following late STEMI, ischemic cardiomyopathy with LVEF 40-45%, paroxysmal atrial fibrillation on outpatient warfarin, IDDM2, CKD III, hypertension, dyslipidemia, COPD, MARIA VICTORIA,right metatarsal amputation 08/09/2017, and hypothyroidism prior thyroidectomy in 2012 who presented to [facility] with 1 week progressing breathlessness with patient [...] 03/2021 with Liz Poole PA-C. ?? At [facility], respiratory distress with hypoxia 86% on room [...] WMAs. Troponin trend: 0.89- 0.92- 1.13. On 17 AM experienced acute hypoxia and dyspnea with [...] mg PO daily in place of lasix. Raiza is new for him and he will have a BMP checked on 12/[address] Cuevas spoke with the patient's and told her that him drinking too much water and diet drinks did not cause his IL. This is what his thought was the [...] to be ~$24/mo; affordable per patient. Post C he was started on Eliquis. He continued [...] Ultra-Fine Mini Pen Needle 31 gauge x 16 Ndle 1 each by Other route 4 [...] appointments: During 8am-5pm Wednesday through Wednesday call [phone] to speak with a nurse in the cardiology clinic All other times call [phone] and ask to speak to the tip tester christmas tree contractor. Return to work: One week Driving: No driving for 48 hours after catheterization. Follow up Appointments: PCP Lovely Vicente MD [phone] to see patient at the end of December for annual check up. Patient to see Dr. Lorenzana at 1120 am at December 19 for a post hospital check up. Python Engineer Dr. De Oliveira to see you in [facility]. Left a message for office to set a date and time. Please call [phone] Nobles to see the patient for a same day cath in 2-3 weeks from now. Office to call with a date and time. For questions please call [phone] Home oxygen therapy: N/A Arrangements for VNA/home care: none Future Appointments and Orders Future Orders Complete By Expires Basic Metabolic Panel (non-fasting) [LAB15 Custom] 12/19/2021 (Approximate) 12/12/2022 Process Instructions: INCLUDES: Calcium, BUN, Creat, GFR, Glucose, Lytes Scheduling Instructions: Comments: Questions: Referral to Cardiac Rehab [GKA481 Custom] As directed Process Instructions: If no progress note charted, please enter Clinical details in comments. Scheduling Instructions: Questions: My question or request is: patient had a PCI and is getting PCI of RCA next in 2 weeks. Discharge References/Attachments None documented in this encounter Discharge Instructions Discharge InstructionsLaJanneth cano PA - 12/11/2021 4:30 PM EDT Anti-coagulation follow up: Eliquis, ASA and Plavix at this time Call your doctor if: Chest pain, shortness of breath, pain or swelling in legs occurs. If you have non-emergent questions between now and the time of your follow up appointments: During 8am-5pm Wednesday through Wednesday call [phone] to speak with a nurse in the cardiology clinic All other times call [phone] and ask to speak to the tip tester christmas tree contractor. Return to work: One week Driving: No driving for 48 hours after catheterization. Follow up Appointments: PCP Lovely Vicente MD [phone] to see patient at the end of December for annual check up. Patient to see Dr. Lorenzana at 1120 am at December 19 for a post hospital check up. Python Engineer Dr. De Oliveira to see you in [facility]. Left a message for office to set a date and time. Please call [phone] Nobles to see the patient for a same day cath in 2-3 weeks from now. Office to call with a date and time. For questions please call [phone] Home oxygen therapy: N/A Arrangements for VNA/home care: none Patient InstructionsJanneth Padilla PA - 12/10/2021 4:17 PM EDT documented [...] Progress Note Patient Name: Don Fatima Service: SEAT COVER MAKER / PA Responsible Attending: Ifeanyi Truong MD [...] was given Lasix 80mg IV x1 in clinical laboratory aide. Tolerated procedure well. Home today at 11 [...] Mood normal. Lab Comments: Recent Labs 12/12/21 04512/11/21 0428 12/10/21 042 WBC 7.9 8.8 9.4 HGB 12.1* 11.9* 11.1* HCT 36.7* 36.9* 34.0* PLATELET 231 211 183 Recent Labs 12/12/21450 INR 1.3 Recent Labs 12/12/2145012/11/218 12/10/21 1945 12/10/211811 NA 143 142 -- 138 K 3.9 4.0 4.2 Not Perf CL 105 104 -- 100 CO2 21* 23 -- 22 BUN 52* 49* -- 50* CREATININE 1.72* 1.43 -- 1.39 Recent Labs 12/09/21 0618 AST 25 ALT 15 ALKPHOS 75 BILITOT 1.1 BILIDIR 0.2 Recent Labs 12/12/21 04512/11/21 0428 12/10/21 1812 12/10/21 0425 CALCIUM 8.9 8.6 8.3* 8.0* MAGNESIUM 1.02 1.04 -- 0.95 Recent Labs 12/09/21 0618 12/08/21 2203 12/08/21 1802 TROPONINT 1.13* 0.92* 0.89* Pertinent Radiographic/Diagnostic Results: R/[facility] 12/10/21 Hemodynamics: Right Heart Pressures Resting: Syst [...] pulmonary vascular congestion and cardiomegaly. TTE from [facility] 12/08/21 Prior Cardiac Studies: TTE 07/28/2019 SUMMARY: [...] with MD Janneth Neville PA 12/12/2021 Pager [phone] Associated attestation - Ifeanyi Truong MD - [...] beat SVT w/sustained AIVR, resolved on own. AsymptomaticNADINE MD notified. See flowsheets for I&O. Call cabello within reach. Pt slept between care. PLAN MOVING FORWARD: D/c 12/12? Continue to monitor Discharge planning as appropriate ShardarDesirae APRN - 12/11/2021 12:11 PM EDT Images [...] ratio for each meal) Desirae Jett APRN [facility] Endocrinology Diabetes Management Pager [phone] 20 minutes of this 35 minute visit [...] Progress Note Patient Name: Don Fatima Service: SEAT COVER MAKER / PA Responsible Attending: Iker Cuevas MD [...] + trop. Known CAD with hx of IL and CABG. DM. MARIA VICTORIA.ICM. ??? ASHD [...] was given Lasix 80mg IV x1 in clinical laboratory aide. Tolerated procedure well. Review of Systems: Review [...] Affect: Mood normal. Lab Comments: Recent Labs 12/11/2142712/10/2142412/09/21617 WBC 8.8 9.4 17.2* HGB 11.9* 11.1* 12.6* HCT 36.9* 34.0* 38.9* PLATELET 211 183 193 Recent Labs 12/11/21427 INR 1.6 Recent Labs 12/11/2142712/10/21194512/10/21181112/10/21424 NA 142 -- 138 140 K 4.0 4.2 Not Perf 3.9 CL 104 -- 100 104 CO2 23 -- 22 23 BUN 49* -- 50* 54* CREATININE 1.43 -- 1.39 1.52* Recent Labs 12/09/21617 AST 25 ALT 15 ALKPHOS 75 BILITOT 1.1 BILIDIR 0.2 Recent Labs 12/11/2142712/10/21181112/10/2142412/09/21 1930 12/09/21 0618 CALCIUM 8.6 8.3* 8.0* < > 8.8 MAGNESIUM 1.04 -- 0.95 -- 0.81 < > = values in this interval not displayed. Recent Labs 12/09/21 0618 12/08/21 2203 12/08/21 [...] pulmonary vascular congestion and cardiomegaly. TTE from [facility] 12/08/21 Prior Cardiac Studies: TTE 07/28/2019 SUMMARY: [...] amputation 08/09/2017, and hypothyroidism prior thyroidectomy in 2013 who presented with respiratory distress, hypoxia, and [...] and answered his questions. Iker Cuevas MD [facility] Total time spent on review of records prior to visit, face to face time with patient during visit, documentation, and coordination of care with other clinicians: 25 minutes. . Iker Cuevas MD - 12/10/2021 12:30 PM EDT Images from the original note were not included. Inpatient Cardiology Progress Note Patient Name: Don Fatima Service: SEAT COVER MAKER / PA Responsible Attending: Iker Cuevas MD Reason for continued hospitalization: NSTEMI- s/p R/LHC- PCW 27, occluded SVGs s/p PCI to ostial LCX ADHF and hypoxia- IV diuresis Active Problems: Active Hospital Problems Diagnosis ??? Admitted with 2 days of sob, hypoxemia, and + trop. Known CAD with hx of IL and CABG. DM. MARIA VICTORIA.ICM. ??? ASHD [...] was given Lasix 80mg IV x1 in clinical laboratory aide. Tolerated procedure well. Review of Systems: Review [...] Affect: Mood normal. Lab Comments: Recent Labs 12/10/2142412/09/2161712/08/21 1802 WBC 9.4 17.2* 15.6* HGB 11.1* 12.6* 11.8* HCT 34.0* 38.9* 35.8* PLATELET 183 193 178 Recent Labs 12/10/21 042 INR 1.7 Recent Labs 12/10/2142412/09/21192912/09/21617 NA 140 138 139 K 3.9 4.2 4.2 CL 104 102 101 CO2 23 22 21* BUN 54* 56* 49* CREATININE 1.52* 1.75* 1.33 Recent Labs 12/09/2118 AST 25 ALT 15 ALKPHOS 75 BILITOT 1.1 BILIDIR 0.2 Recent Labs 12/10/2142412/09/21192912/09/2118 12/08/21 1802 CALCIUM 8.0* 8.1* 8.8 8.6 MAGNESIUM 0.95 -- 0.81 0.86 Recent Labs 12/09/2161712/08/213 12/08/21 1802 TROPONINT 1.13* 0.92* 0.89* Pertinent Radiographic/Diagnostic Results: R/C 12/10/21 Hemodynamics: Right Heart Pressures Resting: Syst [...] pulmonary vascular congestion and cardiomegaly. TTE from [facility] 12/08/21 Prior Cardiac Studies: TTE 07/28/2019 SUMMARY: [...] Discussed with MD Migdalia Peter PA-C Pager #[phone] 12/10/2021 Cardiology Attending Note I have seen [...] updated and given pictures. Iker Cuevas MD [facility] Total time spent on review of records prior to visit, face to face time with patient during visit, documentation, and coordination of care with other clinicians: 35 minutes. Iker Cuevas MD - 12/09/2021 7:28 AM EDT Images from the original note were not included. Inpatient Cardiology Progress Note Patient Name: Don Fatima Service: SEAT COVER MAKER / PA Responsible Attending: Iker Cuevas MD Reason for continued hospitalization: NSTEMI- awaiting R/LHC ADHF and hypoxia- IV diuresis, R/LHC Active Problems: Active Hospital Problems Diagnosis ??? Admitted with 2 days of sob, hypoxemia, and + trop. Known CAD with hx of IL and CABG. DM. MARIA VICTORIA.ICM. ??? ASHD [...] pulmonary vascular congestion and cardiomegaly. TTE from [facility] 12/08/21 Prior Cardiac Studies: TTE 07/28/2019 SUMMARY: [...] by his PCP. Home dosing 5 Mg HAYS/T/W/F/SA and 7.5 mg M/. Daily INR Heparin infusion as above for [...] Discussed with MD Migdalia Peter PA-C Pager #[phone] 12/09/2021 Cardiology Attending Note I have seen and examined the patient. I agree with the findings above. Developed CHF early this am despite getting more iv lasix last evening. Feeling better now. INR > 2. Lungs still wet at base. Echo at [facility] showed EF 35% with mild mod MR slightly lower than last value here. -vit K 2.5 orally to facilitate correction of INR- this will take 12-24 hours to take effect -furosemide 80 mg iv now -postpone right and left heart cath until tomorrow given INR and ADHF -increase statin to achieve LDL < 70 -CPAP tonight Iker Cuevas MD [facility] Total time spent on review of records [...] + trop. Known CAD with hx of IL and CABG. DM. MARIA VICTORIA.ICM. ??? ASHD [...] prior thyroidectomy in 2012 who presented to [facility] with 1 week progressing breathlessness with patient [...] visit 03/2021 with Liz Poole PA-C. At [facility], respiratory distress with hypoxia 86% on room [...] SETUP performed by Manny Mcknight MD at [facility] MAIN OR ??? PRO AMPUTATION FOOT, TRANSMETATARSAL Right 08/09/2017 AMPUTATION, TRANSMETATARSAL (WRVU 12.71) performed by Yonathan Smith MD at [facility] MAIN OR ??? PRO CABG, ARTERIAL, SINGLE N/A 07/07/2017 @CABG, USING ARTERIAL GRAFT;SINGLE ARTERIAL GRAFT (WRVU 33.75) performed by Yuan Retaan MD at [facility] MAIN OR ??? PRO CABG, ARTERY-VEIN, TWO N/A 07/07/2017 @CABG, TWO VENOUS GRAFTS & ARTERIAL GRAFT (WRVU 7.93) performed by Yuan Retana MD at [facility] MAIN OR ??? PRO COLONOSCOPY, REMV LESN, SNARE 01/16/2014 COLONOSCOPY, POLYPECTOMY, REMOVAL LESION BY SNARE performed by Nohemi Jaimes MD at [facility] ENDOSCOPY ??? PRO DRESSING CHANGE UNDER ANESTHESIA Right 08/11/2017 (MSURG) DRESSING CHANGE (FOR OTHER THAN IVAN) UNDER ANES. (WRVU 0.86) performed by Lamar Smith MD at [facility] MAIN OR ??? PRO ENDOSCOPY W/VIDEO-ASST VEIN HARVEST, CABG Right 07/07/2017 ENDOSCOPIC HARVEST VEIN(S) FOR CABG (WRVU 0.31) performed by Yuan Retana MD at [facility] MAIN OR ??? PRO THYROIDECTOMY 03/28/2013 THYROIDECTOMY, TOTAL OR COMPLETE performed by Manny Mcknight MD at [facility] MAIN OR Significant Family History: Family History Problem [...] (H) 65 - 199 mg/dL Labs at [facility] 12/08/2021-troponin I 8004 (UN L <60), 12/07- [...] Monitor for ADRs. Trend troponins. Admission EKG. [facility] 12/09; consented. TTE. Telemetry monitoring, daily weights, I/O routine labs. Fasting lipid panel and TSH in a.m. #HFrEF Continue metoprolol and losartan. Lisinopril caused cough. Furosemide 40mg IV x1. He states she usually wakes 200-210 pounds. TTE #Paroxysmal atrial fibrillation Currently in sinus rhythm. Holding warfarin which is followed by his PCP. Home dosing 5 Mg HAYS/T/// and 7.5 mg /. Heparin infusion as above for ACS. Continue [...] code #Diet-carb control; n.p.o. after midnight for [facility] #DVT prophy- heparin infusion #GI prophy- PPI Discussed with MD Morgan Peter PA-C APP2 pager [phone] 12/08/2021 Cardiology Attending Note I have seen [...] is type 1 due to graft or [place] coronary stenosis vs acute injury from CHF. 3. PAF: currrently in NSR. Have replaced warfarin with heparin 4. PAD: stable 5. DM: stable 6. CKD: will monitor and minimize contrast. Pt very appreciative of Dr. Yuan Retana's care in 2018. Will let him know patient is here. Iker Cuevas MD [facility] documented in this encounter Miscellaneous Notes Care Management Discharge - Favian Norman RN - 12/12/2021 9:56 AM EDTSummary: No CM [...] Type: *No Product type* / Secondary Insurance: [employer] [place] Prescription Coverage: Yes This plan was formulated [...] %] A/P. Post cardiac cath without complications. Migdalia Parker PA-C Pager #[phone] 12/10/2021 Initial Assessments - Nick Georges RN [...] COVID test: Lab Results Component Value Date [id number] Not Detected 12/08/2021 Past medical History: Past [...] spouse would be surrogate decision maker per [place] surrogate decision making law. (Only good for 180 days) Any patient receiving care at [facility] must abide by [place] law. The hierarchy for surrogate decision making [...] (i) The agent with financial power of acid strength inspector or a conservator appointed in accordance with [...] - standard, cane - straight Home Address: [address] [place] [address] [place] [address] Social & Family Supports: All names listed below confirmed with patient as current and correct Extended Emergency Contact Information Primary Emergency Contact: Kisha Fatima Address: [address] [place] [address] [place] [address] [place] Relation: Spouse Secondary Emergency Contact: Elba Swenson Address: [address] [place] Relation: Child Current Care Provided by: [...] Type: *No Product type* / Secondary Insurance: [facility] Prescription Coverage: Yes Preferred Pharmacy: [facility] [id number] [id number] - [place], [place] - [address] [place] [id number] [place] Status: Patient is a : unable to assess Primary Care Provider: Lovely Vicente MD [phone] Patient/Caregiver Goals of Treatment: Get out of here Potential Needs for Transition of Care: none Agency Referrals: none patient has used [facility] in the past Transportation: no concerns Transportation Anticipated: family or friend will provide Concerns to be Addressed: patient refuses services, discharge planning Assessment: Patient is admitted to [facility] [place] Service pager [phone] for 76 y.o.??male??with h/o??CAD s/p 3vCABG (THOMPSON-LAD, [...] status on current unit. Nick Georges RN pantry steward/stewardess, Office of Care Management Pager: [phone] Brief Op Note - Vitaliy Nobles MD - 12/10/2021 8:31 AM EDT Images from the original note were not included. [facility] [place] [address] CORONARY ANGIOGRAM AND PERCUTANEOUS CORONARY INTERVENTION REPORT Patient: Don Fatima : 1945 MR number: [id number] Date of Service: 12/10/2021 Blender: Vitaliy Nobles MD Fellow: [place] MD [...] management and to provide a review of retirement diabetes care. Diabetes History: Don Fatima has had diabetes for 10 years. He has been on insulin for the last several years andis managed by his PCP. Lives in [place], [place] with his . States that he [...] Hold] amLODIPine 5 mg Oral Daily ??? [SEP Hold] aspirin 81 mg Oral Daily ??? [MAR Hold] clopidogreL 75 mg Oral Daily ??? [MAR Hold] atorvastatin 40 mg Oral QPM ??? [MAR Hold] levothyroxine 175 mcg Oral Daily ??? [MAR Hold] losartan 100 mg Oral Daily ??? [MAR Hold] metoprolol tartrate 12.5 mg Oral Q6H LUZ ??? [MAR Hold] sodium chloride 0.9 % (flush) 5 mL Intravenous BID ??? [MAR Hold] insulin glargine (Lantus;Semglee) (100 unit/mL) subcutaneous injection 28 Units Subcutaneous Nightly ??? [MAR Hold] pantoprazole EC 40 mg Oral Daily Infusions: ??? [SEP Hold] nitroGLYcerin Stopped (12/10/21 0824) ??? [SEP Hold] heparin (porcine) infusion 1,600 Units/hr (12/09/217) PRN: [SEP Hold] ipratropium-albuteroL, [SEP Hold] senna-docusate, [SEP Hold] bisacodyL, [SEP Hold] sodiumchloride 0.9 % (flush), [SEP Hold] lidocaine, [MAR Hold] nitroGLYcerin, [MAR Hold] glucose 40% oral geL OR [MAR Hold] dextrose 10% OR [MAR Hold] glucagon, [SEP Hold] heparin (porcine) infusion AND [MAR Hold] [...] 5 gm carb ratio for each meal) [facility] diabetes care: Medications - Outpatient treatment regimen recommendations pending based on the hospital course. Monitoring - continue BG tid ac & hs Diet - low fat/low carb diet Exercise - weight-bearing exercise 30 min/day, as tolerated Thank you for allowing us to provide care for your patient Desirae Jett APRN Endocrinology Pager [phone] 70 minutes of this 80 minute visit [...] + trop. Known CAD with hx of IL and CABG. DM. MARIA VICTORIA.ICM. ??? ASHD [...] to remain on Med/Surg floor, please page [phone] for any further questions or concerns. LANDON [...] for further details. STEPHANIE Rebolledo 12/08/2021 Pager [phone] documented in this encounter Plan of Treatment Upcoming Encounters Date Type Specialty Care Team Description 02/19/2022 Laboratory Appointment Lab 02/19/2022 Office Visit Cardiology Liz Poole PA [facility] Cardiology Dept [place], [place] [address] (Wo rk) 03/12/2022 Office Visit Cardiology Vitaliy Nobles MD [facility] CARDIOLOGY [place], [place] [address] (Wo rk) Scheduled Referrals Name [...] POC Glucose 215 (H) 65 - 199 [facility] mg/dL [facility] Comment: Supplemental ranges: <140 mg/dL before meals <180 mg/dL all other times of the day Specimen Anatomical Collection Method Collection Time Receive d Time (Source) Location / / Volume Laterality Blood 12/12/2021 7:42 AM 7:42 EDT AM EDT Ifeanyi Truong MD POINT OF CARE TEST ORDERABLE S Performing Organization Address City/State/[place] [address] (ABNORMAL) Differential, Automated (12/12/2021 4:51 AM EDT) P athologist Signature Neutrophils % 75.4 % [facility] LABOR[facility]ORY Neutr Abs (ANC) 5.95 1.70 - [facility] 6.10 [facility] x10(3)/[facility] LABORATORY Lymphocytes % 12.2 % [facility] Lymphocytes Abs 1.0 0.9 - 3.2 [facility] x10(3)/[facility] LABORATORY Monocytes % 9.5 % [facility] LABOR[facility]ORY Monocyte Abs 0.8 0.3 - 0.9 [facility] x10(3)/[facility] LABORATORY Eosinophils % 1.8 % [facility] LABOR[facility] Eosinophils Abs 0.1 0.0 - 0.4 [facility] x10(3)/[facility] LABORATORY Basophils % 0.5 % [facility] LABOR[facility]ORY Basophils Abs 0.0 0.0 - 0.1 [facility] x10(3)/[facility] LABORATORY Immature Gran % 0.60 % [facility] Comment: Immature granulocytes(IG's)percentage an d absolute count will include metamyelocytes, myelocytes, and promyelo cytes. Blood smears from CBCs yielding IG's will be scanned manually for concor dance. If this scan disagrees with the automated IG or if promyelocytes are not ed, a manual differential will be performed. Melisa Gran Abs 0.05 (H) 0.00 - 0.04 x10(3)/[facility] LABORATORY Specimen Anatomical Collection Method Collection Time Receive d Time (Source) Location / / Volume Laterality Blood 12/12/2021 4:51 AM 5:06 EDT AM EDT Resulting Agency Comment Spec In Lab Bijan Sun MD HEMATOLOGY ORDERABLES Performing Organization Address City/State/[place] [address] (ABNORMAL) Hemogram (12/12/2021 4:51 AM EDT) Analysis Performed At Patho logist Time Signature WBC 7.9 4.0 - 9.5 [facility] HOSPITAL x10(3)/[facility] LABORATORY RBC 4.19 (L) 4.58 - [facility] 5.54 [facility] x10(6)/[facility] LABORATORY Hemoglobin 12.1 (L) 13.7 - [facility] 16.5 g/dL [facility] LABORATORY Hematocrit 36.7 (L) 40.5 - [facility] 48.5 % [facility] LABORATORY MCV 87.6 82.9 - [facility] 93.1 [facility] LABORATORY MCH 28.9 27.5 - [facility] 32.1 pg [facility] LABORATORY MCHC 33.0 32.0 - [facility] RYAN 35.7 g/dL [facility] LABORATORY Platelets 231 145 - 357 [facility] x10(3)/[facility] LABORATORY RDWSD 47.2 (H) 36.0 - [facility] RYAN 45.0 [facility] LABORATORY RDWCV 14.6 (H) 11.4 - [facility] 13.8 % [facility] LABORATORY MPV 9.5 7.6 - 12.9 [facility] LABORATORY nRBC % Auto 0.0 % [facility] LABORATORY nRBC Abs Auto 0.000 0.000 - [facility] 0.000 [facility] x10(3)/[facility] LABORATORY Specimen Anatomical Collection Method Collection Time Receive d Time (Source) Location / / Volume Laterality Blood 12/12/2021 4:51 AM 5:06 EDT AM EDT Resulting Agency Comment Spec In Lab Bijan Sun MD HEMATOLOGY ORDERABLES Performing Organization Address City/State/[place] [address] (ABNORMAL) Prothrombin Time (12/12/2021 4:51 AM EDT) P athologist Signature PT 14.9 (H) 9.4 - 12.5 [facility] sec [facility] LABORATORY INR 1.3 [facility] LABORATORY Comment: An INR <2.0 indicates [...] Organization Address City/State/[place] [address] (ABNORMAL) BMP w/fasting Glucose (12/12/2021 4:51 AM EDT) athologist Signature Glucose 152 (H) 65 - 99 [facility] Fasting mg/dL [facility] LABORATORY Comment: ?Fasting* Glucose Interpretive C riteria [...] of Diabetes Mellitus, Position Statement from the [place] [employer]. ??Diabete s Care, Volume 33, Supplement 1, Jul 2009 BUN 52 (H) 10 - 20 mg/dL [facility] LABORATORY Creatinine 1.72 (H) 0.80 - 1.50 mg/dL [facility] LABORATORY Sodium 143 135 - 145 mmol/L [facility] LABORATORY Potassium 3.9 3.5 - 5.0 mmol/L [facility] LABORATORY Comment: Please note: ??Patients with WBC >100,00 0 may have falsely elevated Potassium levels. ??For accurate Potassium quantif ication in these patients send serum separator tube (gold top) for subsequent determinations. ??Contact the Clinical Chemistry Laboratory if there are any qu estions. Chloride 105 98 - 107 mmol/L [facility] LABORATORY CO2 21 (L) 22 - 31 mmol/L [facility] LABORATORY Anion Gap 17 (H) 5 - 15 mmol/L [facility] LABORATORY Calcium 8.9 8.5 - 10.5 mg/dL [facility] LABORATORY Estimated GFR 38 (L) >=60 mL/min/1.73 m?? [facility] LABORATORY Comment: This patient? s estimated [...] Cuevas MD CHEMISTRY ORDERABLES Performing Organization Address City/[facility]/[place] [address] Magnesium (12/12/2021 4:51 AM EDT) athologist Signature Magnesium 1.02 0.69 - 1.07 [facility]/L [facility] LABORATORY Specimen Anatomical Collection Method Collection Time Receive d Time (Source) Location / / Volume Laterality Blood 12/12/2021 4:51 AM 2 5:06 EDT AM EDT Resulting Agency Comment Spec In Lab Iker Cuevas MD CHEMISTRY ORDERABLES Performing Organization Address City/[facility]/[place] [address] POCT Glucose (12/12/2021 3:43 AM EDT) P athologist Signature POC Glucose 138 65 - 199 [facility] mg/dL [facility] LABORATORY Comment: Supplemental ranges: <140 mg/dL before meals <180 mg/dL all other times of the day Specimen Anatomical Collection Method Collection Time Receive d Time (Source) Location / / Volume Laterality Blood 12/12/2021 3:43 AM 2 3:43 EDT AM EDT Iker Cuevas MD POINT OF CARE TEST ORDERABLE S Performing Organization Address City/State/[place] [address] POCT Glucose (12/11/2021 11:44 PM EDT) athologist Signature POC Glucose 124 65 - 199 [facility] mg/dL [facility] LABORATORY Comment: Supplemental ranges: <140 mg/dL before meals <180 mg/dL all other times of the day Specimen Anatomical Collection Method Collection Time Receive d Time (Source) Location / / Volume Laterality Blood 12/11/2021 11:44 12/11/2021 PM EDT 11:44 PM EDT Iker Cuevas MD POINT OF CARE TEST ORDERABLE S Performing Organization Address City/State/[place] [address] (ABNORMAL) POCT Glucose (12/11/2021 8:12 PM EDT) athologist Signature POC Glucose 200 (H) 65 - 199 [facility] mg/dL [facility] LABORATORY Comment: Supplemental ranges: <140 mg/dL before meals <180 mg/dL all other times of the day Specimen Anatomical Collection Method Collection Time Receive d Time (Source) Location / / Volume Laterality Blood 12/11/2021 8:12 PM 2 8:12 EDT PM EDT Iker Cuevas MD POINT OF CARE TEST ORDERABLE S Performing Organization Address City/State/[place] [address] (ABNORMAL) POCT Glucose (12/11/2021 6:50 PM EDT) athologist Signature POC Glucose 245 (H) 65 - 199 [facility] mg/dL [facility] LABORATORY Comment: Supplemental ranges: <140 mg/dL before meals <180 mg/dL all other times of the day Specimen Anatomical Collection Method Collection Time Receive d Time (Source) Location / / Volume Laterality Blood 12/11/2021 6:50 PM 2 6:50 EDT PM EDT Iker Cuevas MD POINT OF CARE TEST ORDERABLE S Performing Organization Address City/State/[place] [address] (ABNORMAL) POCT Glucose (12/11/2021 4:00 PM EDT) athologist Signature POC Glucose 383 (H) 65 - 199 [facility] mg/dL [facility] LABORATORY Comment: Supplemental ranges: <140 mg/dL before meals <180 mg/dL all other times of the day Specimen Anatomical Collection Method Collection Time Receive d Time (Source) Location / / Volume Laterality Blood 12/11/2021 4:00 PM 2 4:00 EDT PM EDT Iker Cuevas MD POINT OF CARE TEST ORDERABLE S Performing Organization Address City/State/[place] [address] (ABNORMAL) POCT Glucose (12/11/2021 12:01 PM EDT) athologist Signature POC Glucose 342 (H) 65 - 199 [facility] mg/dL [facility] LABORATORY Comment: Supplemental ranges: <140 mg/dL before meals <180 mg/dL all other times of the day Specimen Anatomical Collection Method Collection Time Receive d Time (Source) Location / / Volume Laterality Blood 12/11/2021 12:01 12/11/2021 PM EDT 12:01 PM EDT Iker Cuevas MD POINT OF CARE TEST ORDERABLE S Performing Organization Address City/State/[place] [address] COVID-19 PCR (12/11/2021 10:13 AM EDT) [facility] Method Time Signature SARS-CoV-2 Not Detected Not Detected [facility] RNA [facility] LABORATORY Comment: This result should be interpreted [...] diagnosis of COVID-19 is performed using the Geotender S-CoV-2 Assay as authorized by the FDA Emergency Use Authorization (EUA). This EUA assay is intended for In-vitro Diagnostic (IVD) use with respiratory sp ecimens such as nasopharyngeal swabs collected from individuals during the ac terrence phase of infection. This assay is performed based on the instructions for use provided by [employer] and additional guidance provided by CDC and FDA. Testing is performed in the Clinical Genomics and [facility] Techn[facility] y Laboratory within the Department of Pathology and Laboratory Medicine at [facility], certified under the Clinical Laboratory Improvement Amendments [...] fact sheets at the following FDA website: https://www.fda.gov/medical-devices/zaxqujfbmzo-xwkdesx-5211-ncfcd-43-arknwdnch- ltz-uwgwzdlaqukdru-aysijgc-devices/oncsp-xtloavrxcbj-dgqa SARS-Cov-2 RNA Source [employer] Swab [facility] LABORATORY Specimen (Source) Anatomical Collection Method Collection Time Re ceived Time Location / / Volume Laterality Nasopharyngeal Swab 12/11/2021 10:13 0503/2022 AM EDT 11:16 AM EDT Comment: Symptoms->Surveillance Resulting Agency Comment Spec In Lab Iker Cuevas MD MICROBIOLOGY - GENERAL ORDER ROBSON Performing Organization Address City/State/[place] [address] POCT Glucose (12/11/2021 7:34 AM EDT) athologist Signature POC Glucose 198 65 - 199 [facility] mg/dL [facility] LABORATORY Comment: Supplemental ranges: <140 mg/dL before meals <180 mg/dL all other times of the day Specimen Anatomical Collection Method Collection Time Receive d Time (Source) Location / / Volume Laterality Blood 12/11/2021 7:34 AM 7:34 EDT AM EDT Iker Cuevas MD POINT OF CARE TEST ORDERABLE S Performing Organization Address City/[facility]/[place] [address] (ABNORMAL) POCT Glucose (12/11/2021 5:07 AM EDT) athologist Signature POC Glucose 208 (H) 65 - 199 [facility] mg/dL [facility] LABORATORY Comment: Supplemental ranges: <140 mg/dL before meals <180 mg/dL all other times of the day Specimen Anatomical Collection Method Collection Time Receive d Time (Source) Location / / Volume Laterality Blood 12/11/2021 5:07 AM 5:07 EDT AM EDT Iker Cuevas MD POINT OF CARE TEST ORDERABLE S Performing Organization Address City/State/[place] [address] (ABNORMAL) Differential, Automated (12/11/2021 4:28 AM EDT) [facility] Method Time Signature Neutrophils % 79.6 % [facility] LABORATORY Neutr Abs (ANC) 7.01 (H) 1.70 - [facility] 6.10 [facility] x10(3)/[facility] LABORATORY Lymphocytes % 9.1 % [facility] LABORATORY Lymphocytes Abs 0.8 (L) 0.9 - 3.2 [facility] x10(3)/[facility] LABORATORY Monocytes % 9.2 % [facility] LABORATORY Monocyte Abs 0.8 0.3 - 0.9 [facility] x10(3)/[facility] LABORATORY Eosinophils % 1.3 % [facility] LABORATORY Eosinophils Abs 0.1 0.0 - 0.4 [facility] x10(3)/[facility] LABORATORY Basophils % 0.5 % [facility] LABORATORY Basophils Abs 0.0 0.0 - 0.1 [facility] x10(3)/[facility] LABORATORY Immature Gran % 0.30 % [facility] LABORATORY Comment: Immature granulocytes(IG's)percentage an d absolute count will include metamyelocytes, myelocytes, and promyelo cytes. Blood smears from CBCs yielding IG's will be scanned manually for concor dance. If this scan disagrees with the automated IG or if promyelocytes are not ed, a manual differential will be performed. Melisa Gran Abs 0.03 0.00 - 0.04 x10(3)/[facility] LABORATORY Specimen Anatomical Collection Method Collection Time Receive d Time (Source) Location / / Volume Laterality Blood 12/11/2021 4:28 AM 2 4:37 EDT AM EDT Resulting Agency Comment Spec In Lab Bijan Sun MD HEMATOLOGY ORDERABLES Performing Organization Address City/State/[place] [address] (ABNORMAL) Hemogram (12/11/2021 4:28 AM EDT) Analysis Performed At Patho logist Time Signature WBC 8.8 4.0 - 9.5 [facility] x[facility](3)/[facility] LABORATORY RBC 4.15 (L) 4.58 - [facility] 5.54 [facility] x10(6)/[facility] LABORATORY Hemoglobin 11.9 (L) 13.7 - [facility] 16.5 g/dL [facility] LABORATORY Hematocrit 36.9 (L) 40.5 - [facility] 48.5 % [facility] LABORATORY MCV 88.9 82.9 - [facility] 93.1 [facility] LABORATORY MCH 28.7 27.5 - [facility] 32.1 pg [facility] LABORATORY MCHC 32.2 32.0 - [place] 35.7 g/dL [facility] LABORATORY Platelets 211 145 - 357 [facility] x10(3)/[facility] LABORATORY RDWSD 48.3 (H) 36.0 - [facility] RYAN 45.0 [facility] LABORATORY RDWCV 14.8 (H) 11.4 - [facility] RYAN 13.8 % [facility] LABORATORY MPV 9.6 7.6 - 12.9 [facility] LABORATORY nRBC % Auto 0.0 % [facility] LABORATORY nRBC Abs Auto 0.000 0.000 - [place] 0.000 [facility] x10(3)/[facility] LABORATORY Specimen Anatomical Collection Method Collection Time Receive d Time (Source) Location / / Volume Laterality Blood 12/11/2021 4:28 AM 2 4:37 EDT AM EDT Resulting Agency Comment Spec In Lab Bijan Sun MD HEMATOLOGY ORDERABLES Performing Organization Address City/State/[place] [address] (ABNORMAL) Prothrombin Time (12/11/2021 4:28 AM EDT) athologist Signature PT 17.7 (H) 9.4 - 12.5 [facility] LABORATORY INR 1.6 [facility] LABORATORY Comment: An INR <2.0 indicates [...] Organization Address City/State/ZIP Code Phon e Number [place] [id number] HOSPITAL LABORATORY Drive (ABNORMAL) BMP w/fasting Glucose (12/11/2021 4:28 AM EDT) athologist Signature Glucose 207 (H) 65 - 99 [facility] Fasting mg/dL [facility] LABORATORY Comment: ?Fasting* Glucose Interpretive C riteria [...] of Diabetes Mellitus, Position Statement from the [place] [employer]. ??Diabete s Care, Volume 33, Supplement 1, Jul 2009 BUN 49 (H) 10 - 20 mg/dL [facility] LABORATORY Creatinine 1.43 0.80 - 1.50 mg/dL [facility] LABORATORY Sodium 142 135 - 145 mmol/L [facility] LABORATORY Potassium 4.0 3.5 - 5.0 mmol/L [facility] LABORATORY Comment: Please note: ??Patients with WBC >100,00 0 may have falsely elevated Potassium levels. ??For accurate Potassium quantif ication in these patients send serum separator tube (gold top) for subsequent determinations. ??Contact the Clinical Chemistry Laboratory if there are any qu estions. Chloride 104 98 - 107 mmol/L [facility] LABORATORY CO2 23 22 - 31 mmol/L [facility] LABORATORY Anion Gap 15 5 - 15 mmol/L [facility] LABORATORY Calcium 8.6 8.5 - 10.5 mg/dL [facility] LABORATORY Estimated GFR 48 (L) >=60 mL/min/1.73 m?? [facility] LABORATORY Comment: This patient? s estimated [...] Organization Address City/State/[place] [address] Magnesium (12/11/2021 4:28 AM EDT) athologist Signature Magnesium 1.04 0.69 - 1.07 [facility] mmol/L [facility] LABORATORY Specimen Anatomical Collection Method Collection Time Receive d Time (Source) Location / / Volume Laterality Blood 12/11/2021 4:28 AM 2 4:37 EDT AM EDT Resulting Agency Comment Spec In Lab Iker Cuevas MD CHEMISTRY ORDERABLES Performing Organization Address City/State/ZIP Code Phon e Number [address] POCT Glucose (12/11/2021 3:58 AM EDT) athologist Signature POC Glucose 189 65 - 199 [facility] mg/dL [facility] LABORATORY Comment: Supplemental ranges: <140 mg/dL before meals <180 mg/dL all other times of the day Specimen Anatomical Collection Method Collection Time Receive d Time (Source) Location / / Volume Laterality Blood 12/11/2021 3:58 AM 2 3:58 EDT AM EDT Iker Cuevas MD POINT OF CARE TEST ORDERABLE S Performing Organization Address City/State/[place] [address] (ABNORMAL) POCT Glucose (12/10/2021 11:45 PM EDT) athologist Signature POC Glucose 205 (H) 65 - 199 [facility] mg/dL [facility] LABORATORY Comment: Supplemental ranges: <140 mg/dL before meals <180 mg/dL all other times of the day Specimen Anatomical Collection Method Collection Time Receive d Time (Source) Location / / Volume Laterality Blood 12/10/2021 11:45 12/10/2021 PM EDT 11:45 PM EDT Iker Cuevas MD POINT OF CARE TEST ORDERABLE S Performing Organization Address City/State/ZIP Code Phon e Number [address] (ABNORMAL) POCT Glucose (12/10/2021 7:54 PM EDT) athologist Signature POC Glucose 225 (H) 65 - 199 [facility] mg/dL [facility] LABORATORY Comment: Supplemental ranges: <140 mg/dL before meals <180 mg/dL all other times of the day Specimen Anatomical Collection Method Collection Time Receive d Time (Source) Location / / Volume Laterality Blood 12/10/2021 7:54 PM 2 7:54 EDT PM EDT Iker Cuevas MD POINT OF CARE TEST ORDERABLE S Performing Organization Address City/[facility]/[place] [address] Potassium (12/10/2021 7:46 PM EDT) athologist Signature Potassium 4.2 3.5 - 5.0 [facility] mmol/L [facility] LABORATORY Comment: Please note: ??Patients with [...] Cuevas MD CHEMISTRY ORDERABLES Performing Organization Address City/[facility]/[place] [address] (ABNORMAL) Basic Metabolic Panel (non-fasting) (12/10/2021 6:12 PM EDT) athologist Signature Glucose Lvl 246 (H) 65 - 199 [facility] mg/dL [facility] LABORATORY Comment: Diabetes: >=200 mg/dL plus symp toms BUN 50 (H) 10 - 20 mg/dL [facility] LABORATORY Creatinine 1.39 0.80 - 1.50 mg/dL [facility] LABORATORY Sodium 138 135 - 145 mmol/L [facility] LABORATORY Potassium Not Perf 3.5 - 5.0 [facility] LABORATORY Comment: Unable to quantitate due to sample hemol ysis. ??Sample redraw suggested. Called by: leana, Read back by: ms.[email or web address] michaud, Date/Time:12/10/21 19:06. Please note: ??Patients with WBC >100,00 0 may have falsely elevated Potassium levels. ??For accurate Potassium quantif ication in these patients send serum separator tube (gold top) for subsequent determinations. ??Contact the Clinical Chemistry Laboratory if there are any qu estions. Chloride 100 98 - 107 mmol/L [facility] LABORATORY CO2 22 22 - 31 mmol/L [facility] LABORATORY Anion Gap 16 (H) 5 - 15 mmol/L [facility] LABORATORY Calcium 8.3 (L) 8.5 - 10.5 mg/dL [facility] LABORATORY Estimated GFR 49 (L) >=60 mL/min/1.73 m?? [facility] LABORATORY Comment: This patient? s estimated [...] Organization Address City/State/[place] [address] POCT Glucose (12/10/2021 4:59 PM EDT) athologist Signature POC Glucose 158 65 - 199 [facility] mg/dL [facility] LABORATORY Comment: Supplemental ranges: <140 mg/dL before meals <180 mg/dL all other times of the day Specimen Anatomical Collection Method Collection Time Receive d Time (Source) Location / / Volume Laterality Blood 12/10/2021 4:59 PM 4:59 EDT PM EDT Iker Cuevas MD POINT OF CARE TEST ORDERABLE S Performing Organization Address City/State/[place] [address] (ABNORMAL) POCT Glucose (12/10/2021 12:43 PM EDT) P athologist Signature POC Glucose 241 (H) 65 - 199 [facility] mg/dL [facility] LABORATORY Comment: Supplemental ranges: <140 mg/dL before meals <180 mg/dL all other times of the day Specimen Anatomical Collection Method Collection Time Receive d Time (Source) Location / / Volume Laterality Blood 12/10/2021 12:43 12/10/2021 PM EDT 12:43 PM EDT Iker Cuevas MD POINT OF CARE TEST ORDERABLE S Performing Organization Address City/[facility]/[place] [address] EKG 12 Lead (12/10/2021 11:17 AM EDT) Component Value Ref Range Test Analysis Performed Pathologis t Method Time At Signature Ventricular rate 62 BPM MUSE SYSTEM Atrial Rate 62 BPM MUSE SYSTEM P-R Interval 142 ms MUSE SYSTEM QRS Duration 100 ms MUSE SYSTEM Q-T Interval 434 ms MUSE SYSTEM QTC Calculated 440 ms MUSE SYSTEM (Bezet) Calculated P [place] 34 degrees MUSE SYSTEM Calculated R [place] -39 degrees MUSE SYSTEM Calculated T [place] 92 degrees MUSE SYSTEM INTERPRETATION Normal sinus rhythm MUSE SYSTEM Left axis deviation Minimal voltage criteria for LVH, may be normal variant ( [place] product ) Cannot rule out Inferior infarct [...] SYSTEM - 12/10/2021 12:04 PM E DT ?[facility] ? Cardiac Cathete rization/Intervention Report ? Patient Name: Don Fatima. ? Procedure Date: 12/10/2021 ? A #: [id number] ? Primary Physician: Vitaliy Nobles ? Case #: [id number] ? File Name: [id number] ? Catheterization Order Number: [id number] ? [facility] ? Final Report [place], [place] ? Patient Name: ? Don E. Stewa rt ? ID#: ?[id number] ? : ?1945 ? Procedure Date: ? December 10, 2021 ? Case #: ? [id number] ? Room: ? 1 ? Case Physician: ? Vitaliy P Nobles, M. D. ?Start: ?08:41 ?Fellow: ? [place] M.D. [...] was ?designated as ASA Class III. e [facility] clinical frailty scale is 5: Mildly ?Frail. [...] procedure was Urgent. The indication for ?the clinical laboratory aide visit is ACS great er than 24 [...] ?3.75 guiding catheter and a 3.5 Fr [facility] 20 Mhz using Manual ?pullback. ??Imaging was [...] ?3.75 guiding catheter and a 3.5 Fr [facility] 20 Mhz using Manual ?pullback. ??Imaging was [...] 7 Fr. EBU 3.75 ? guide. ??The le latonya was predilated with a 2.75mm NC EUPHORA [...] L NC. ?I-Stat: ? I-Stat was performed ana fleming the I-Stat analyzer at 09:10: Na+: 143, [...] may require ?modification of this regimen. C [facility] Interventional Cardiology for ?questions. ?The 1 year bleeding risk as nusrat culated by the PRECISE DAPT score is High ?risk. ?High Bleeding Risk - Anticoagul ation and DAPT: ?- ??Assess ischemic and bleedin g risks using validated risk predictors ?(e.g. CHADS2-VASC, HAS-BLED, [place] ECISE DAPT, DAPT Score) ?- ??Keep anticoagulant [...] ? Comments: ?SUMMARY AND THERAPEUTIC RECOMME NDATIONS: ?Donrory Fatima presents with a NSTEMI, pulmonary edema, a reduction of ?LVEF with RWMA and mod MR. Gonzalo w as found to have severely elevated LVEDP [...] Diag1 ?ischemia as well. 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 ? Vitaliy Nobles M.D. ? Electronically Signed by: Yoselin Lopez ? Report Finalized: 12/10/2021 ??11:55 ? Report Last Ammended: 01/14/2022 ??12:09 ? Procedure Note Vitaliy Nobles MD - 01/14/2022 [facility] Cardiac Catheterization/Intervention Re port Patient Name: Don Fatima Procedure Date: 12/10/2021 A #: [id number] Primary Physician: Vitaliy Nobles Case #: [id number] File Name: [id number] Catheterization Order Number: [id number] [facility] Final Report [place], [place] Patient Name: Don Fatima ID#: [...] Insertion * Arterial Blood Gases History Don Ftaima is a 76 year old man. He [...] e was Urgent. The indication for the clinical laboratory aide visit is ACS greater than 24 hrs [...] and a 3.5 [facility] 20 Mhz using Manual pullback. Imaging was [...] and a 3.5 [facility] 20 Mhz using Manual pullback. Imaging was successful. Image quality was good. The distal LM showed moderate diffuse atherosclero tic plaque. Post Intervention: The stent was well e xpanded and apposed. Indication for Intervention: Coronary intervention was indicated for primary therapy for an acute myocardial infarction. The priority for the procedure was Urgent. The [facility] indication for the procedure was N MARKIE-ACS. [...] require modification of this regimen. Consult [facility] Interventional Cardiology for questions. The 1 year [...] procedure. Dr. Vitaliy Nobles M.D. was present durin g the moderate sedation intraservice time as [...] (ABNORMAL) POCT Glucose (12/10/2021 10:30 AM EDT) P athologist Signature POC Glucose 262 (H) 65 - 199 [facility] mg/dL [facility] Comment: Supplemental ranges: <140 mg/dL before meals <180 mg/dL all other times of the day Specimen Anatomical Collection Method Collection Time Receive d Time (Source) Location / / Volume Laterality Blood 12/10/2021 10:30 12/10/2021 AM EDT 10:30 AM EDT Iker Cuevas MD POINT OF CARE TEST ORDERABLE S Performing Organization Address City/State/[place] [address] (ABNORMAL) POCT Glucose (12/10/2021 9:48 AM EDT) athologist Signature POC Glucose 279 (H) 65 - 199 [facility] mg/dL [facility] Comment: Supplemental ranges: <140 mg/dL before meals <180 mg/dL all other times of the day Specimen Anatomical Collection Method Collection Time Receive d Time (Source) Location / / Volume Laterality Blood 12/10/2021 9:48 AM 2 9:48 EDT AM EDT Iker Cuevas MD POINT OF CARE TEST ORDERABLE S Performing Organization Address City/State/[place] [address] (ABNORMAL) POCT Glucose (12/10/2021 9:07 AM EDT) athologist Signature POC Glucose 268 (H) 65 - 199 [facility] mg/dL [facility] Comment: Supplemental ranges: <140 mg/dL before meals <180 mg/dL all other times of the day Specimen Anatomical Collection Method Collection Time Receive d Time (Source) Location / / Volume Laterality Blood 12/10/2021 9:07 AM 2 9:07 EDT AM EDT Iker Cuevas MD POINT OF CARE TEST ORDERABLE S Performing Organization Address City/State/[place] [address] (ABNORMAL) Point of Care Blood Gas Historical (12/10/2021 9:04 AM EDT) [facility] Method Time Signature POC pH 7.40 7.35 - [facility] 7.45 [facility] POC PCO2 40 35 - 45 [facility] mmHg [facility] POC PO2 63 (L) 85 - 104 [facility] mmHg [facility] POC Base Excess 0.0 -3.0 - 3.0 [facility] K mmol/L [facility] POC HCO3 24.8 20.0 - [facility] 26.0 [facility] mmol/[facility] LABORATORY POC Sodium 143 135 - 145 [facility] mmol/L [facility] POC Potassium 3.7 3.5 - 5.0 [facility] mmol/L [facility] POC Ionized Ca 1.07 (L) 1.15 - [facility] 1.33 [facility] mmol/L [facility] LABORATORY POC Hematocrit 30.0 (L) 40.0 - [facility] 51.0 % [facility] POC Calc Hgb 10.2 (L) 13.7 - [facility] 17.5 g/dL [facility] Comment: The calculation of hemoglobin f rom hematocrit assumes a normal MCHC. POC Bgas Loc CC LAB [facility] LABORATORY Specimen Anatomical Collection Method Collection Time Receive d Time (Source) Location / / Volume Laterality Blood 12/10/2021 9:04 AM 2 EDT 12:00 PM EDT Ifeanyi Truong MD CHEMISTRY ORDERABLES Performing Organization Address City/[facility]/[place] [address] (ABNORMAL) POCT Glucose (12/10/2021 7:19 AM EDT) athologist Signature POC Glucose 274 (H) 65 - 199 [facility] mg/dL [facility] Comment: Supplemental ranges: <140 mg/dL before meals <180 mg/dL all other times of the day Specimen Anatomical Collection Method Collection Time Receive d Time (Source) Location / / Volume Laterality Blood 12/10/2021 7:19 AM 2 7:19 EDT AM EDT Iker Cuevas MD POINT OF CARE TEST ORDERABLE S Performing Organization Address City/[facility]/[place] [address] Heparin (unfractionated) Level (12/10/2021 4:25 AM EDT) athologist Signature Heparin UFH 0.69 IU/mL [facility] LABORATORY Comment: Heparin (anti-Xa) levels should [...] Organization Address City/State/[place] [address] (ABNORMAL) Differential, Automated (12/10/2021 4:25 AM EDT) [facility] Method Time Signature Neutrophils % 79.8 % [facility] Neutr Abs (ANC) 7.47 (H) 1.70 - [facility] 6.10 [facility] x10(3)/[facility] LABORATORY Lymphocytes % 10.6 % [facility] Lymphocytes Abs 1.0 0.9 - 3.2 [facility] x10(3)/[facility] LABORATORY Monocytes % 8.4 % [facility] Monocyte Abs 0.8 0.3 - 0.9 [facility] x10(3)/[facility] LABORATORY Eosinophils % 0.6 % [facility] Eosinophils Abs 0.1 0.0 - 0.4 [facility] x10(3)/[facility] LABORATORY Basophils % 0.2 % [facility] Basophils Abs 0.0 0.0 - 0.1 [facility] x10(3)/[facility] LABORATORY Immature Gran % 0.40 % [facility] Comment: Immature granulocytes(IG's)percentage an d absolute count will include metamyelocytes, myelocytes, and promyelo cytes. Blood smears from CBCs yielding IG's will be scanned manually for concor dance. If this scan disagrees with the automated IG or if promyelocytes are not ed, a manual differential will be performed. Melisa Gran Abs 0.04 0.00 - 0.04 x10(3)/[facility] LABORATORY Specimen Anatomical Collection Method Collection Time Receive d Time (Source) Location / / Volume Laterality Blood 12/10/2021 4:25 AM 2 4:34 EDT AM EDT Resulting Agency Comment Spec In Lab Morgan BROWN HEMATOLOGY ORDERABLES Performing Organization Address City/State/[place] [address] (ABNORMAL) Hemogram (12/10/2021 4:25 AM EDT) Analysis Performed At Patho logist Time Signature WBC 9.4 4.0 - 9.5 [facility] x10(3)/[facility] LABORATORY RBC 3.81 (L) 4.58 - [facility] 5.54 [facility] x10(6)/[facility] LABORATORY Hemoglobin 11.1 (L) 13.7 - [facility] 16.5 g/dL [facility] Hematocrit 34.0 (L) 40.5 - [facility] 48.5 % [facility] MCV 89.2 82.9 - [facility] 93.1 [facility] LABORATORY MCH 29.1 27.5 - [facility] 32.1 pg [facility] MCHC 32.6 32.0 - [facility] 35.7 g/dL [facility] Platelets 183 145 - 357 [facility] x10(3)/[facility] LABORATORY RDWSD 49.9 (H) 36.0 - [facility] 45.0 [facility] LABORATORY RDWCV 15.2 (H) 11.4 - [facility] 13.8 % [facility] MPV 9.8 7.6 - 12.9 [facility] LABORATORY nRBC % Auto 0.0 % [facility] LABOR[facility]ORY nRBC Abs Auto 0.000 0.000 - [facility] R[facility] 0.000 [facility] x10(3)/[facility] LABORATORY Specimen Anatomical Collection Method Collection Time Receive d Time (Source) Location / / Volume Laterality Blood 12/10/2021 4:25 AM 2 4:34 EDT AM EDT Resulting Agency Comment Spec In Lab Morgan BROWN HEMATOLOGY ORDERABLES Performing Organization Address City/State/[place] [address] (ABNORMAL) Prothrombin Time (12/10/2021 4:25 AM EDT) P athologist Signature PT 20.0 (H) 9.4 - 12.5 [facility] LABORATORY INR 1.7 [facility] Comment: An INR <2.0 indicates [...] Organization Address City/State/[place] [address] (ABNORMAL) BMP w/fasting Glucose (12/10/2021 4:25 AM EDT) P athologist Signature Glucose 210 (H) 65 - 99 [facility] Fasting mg/dL [facility] Comment: ?Fasting* Glucose Interpretive C riteria [...] of Diabetes Mellitus, Position Statement from the [employer] [employer]. ??Diabete s Care, Volume 33, Supplement 1, Jul 2009 BUN 54 (H) 10 - 20 mg/dL [facility] Creatinine 1.52 (H) 0.80 - 1.50 mg/dL [facility] LAB[facility] Sodium 140 135 - 145 mmol/L [facility] Potassium 3.9 3.5 - 5.0 mmol/L [facility] Comment: Please note: ??Patients with WBC >100,00 0 may have falsely elevated Potassium levels. ??For accurate Potassium quantif ication in these patients send serum separator tube (gold top) for subsequent determinations. ??Contact the Clinical Chemistry Laboratory if there are any qu estions. Chloride 104 98 - 107 mmol/L [facility] CO2 23 22 - 31 mmol/L [facility] Anion Gap 13 5 - 15 mmol/L [facility] Calcium 8.0 (L) 8.5 - 10.5 mg/dL [facility] Estimated GFR 44 (L) >=60 mL/min/1.73 m?? [facility] Comment: This patient? s estimated [...] Organization Address City/State/[place] [address] Magnesium (12/10/2021 4:25 AM EDT) athologist Signature Magnesium 0.95 0.69 - 1.07 [facility] mmol/L [facility] Specimen Anatomical Collection Method Collection Time Receive d Time (Source) Location / / Volume Laterality Blood 12/10/2021 4:25 AM 2 4:34 EDT AM EDT Resulting Agency Comment Spec In Lab Iker Cuevas MD CHEMISTRY ORDERABLES Performing Organization Address City/State/ZIP Code Phon e Number [address] POCT Glucose (12/10/2021 1:58 AM EDT) athologist Signature POC Glucose 164 65 - 199 [facility] mg/dL [facility] Comment: Supplemental ranges: <140 mg/dL before meals <180 mg/dL all other times of the day Specimen Anatomical Collection Method Collection Time Receive d Time (Source) Location / / Volume Laterality Blood 12/10/2021 1:58 AM 2 1:58 EDT AM EDT Iker Cuevas MD POINT OF CARE TEST ORDERABLE S Performing Organization Address City/[facility]/ZIP Code Phon e Number [address] (ABNORMAL) POCT Glucose (12/09/2021 9:02 PM EDT) athologist Signature POC Glucose 313 (H) 65 - 199 [facility] mg/dL [facility] Comment: Supplemental ranges: <140 mg/dL before meals <180 mg/dL all other times of the day Specimen Anatomical Collection Method Collection Time Receive d Time (Source) Location / / Volume Laterality Blood 12/09/2021 9:02 PM 2 9:02 EDT PM EDT Iker Cuevas MD POINT OF CARE TEST ORDERABLE S Performing Organization Address City/State/[place] [address] Heparin (unfractionated) Level (12/09/2021 7:30 PM EDT) athologist Signature Heparin UFH 0.48 IU/mL [facility] LABORATORY Comment: Heparin (anti-Xa) levels should [...] Organization Address City/State/[place] [address] (ABNORMAL) Basic Metabolic Panel (non-fasting) (12/09/2021 7:30 PM EDT) athologist Signature Glucose Lvl 372 (H) 65 - 199 [facility] mg/dL [facility] Comment: Diabetes: >=200 mg/dL plus symp toms BUN 56 (H) 10 - 20 mg/dL [facility] Creatinine 1.75 (H) 0.80 - 1.50 mg/dL [facility] LAB[facility]ORY Sodium 138 135 - 145 mmol/L [facility] [...] estions. Chloride 102 98 - 107 mmol/L [facility] CO2 22 22 - 31 mmol/L [facility] Anion Gap 14 5 - 15 mmol/L [facility] Calcium 8.1 (L) 8.5 - 10.5 mg/dL [facility] Estimated GFR 37 (L) >=60 mL/min/1.73 m?? [facility] Comment: This patient? s estimated [...] Organization Address City/State/[place] [address] (ABNORMAL) POCT Glucose (12/09/2021 6:34 PM EDT) P athologist Signature POC Glucose 408 (H) 65 - 199 [facility] mg/dL [facility] Comment: Supplemental ranges: <140 mg/dL before meals <180 mg/dL all other times of the day Specimen Anatomical Collection Method Collection Time Receive d Time (Source) Location / / Volume Laterality Blood 12/09/2021 6:34 PM 2 6:34 EDT PM EDT Iker Cuevas MD POINT OF CARE TEST ORDERABLE S Performing Organization Address City/State/[place] [address] (ABNORMAL) POCT Glucose (12/09/2021 6:32 PM EDT) athologist Signature POC Glucose 356 (H) 65 - 199 [facility] mg/dL [facility] Comment: Supplemental ranges: <140 mg/dL before meals <180 mg/dL all other times of the day Specimen Anatomical Collection Method Collection Time Receive d Time (Source) Location / / Volume Laterality Blood 12/09/2021 6:32 PM 2 6:32 EDT PM EDT Iker Cuevas MD POINT OF CARE TEST ORDERABLE S Performing Organization Address City/[facility]/[place] [address] (ABNORMAL) POCT Glucose (12/09/2021 4:19 PM EDT) athologist Signature POC Glucose 347 (H) 65 - 199 [facility] mg/dL [facility] Comment: Supplemental ranges: <140 mg/dL before meals <180 mg/dL all other times of the day Specimen Anatomical Collection Method Collection Time Receive d Time (Source) Location / / Volume Laterality Blood 12/09/2021 4:19 PM 2 4:19 EDT PM EDT Iker Cuevas MD POINT OF CARE TEST ORDERABLE S Performing Organization Address City/[facility]/[place] [address] Heparin (unfractionated) Level (12/09/2021 1:29 PM EDT) athologist Signature Heparin UFH 0.42 IU/mL [facility] LABORATORY Comment: Heparin (anti-Xa) levels should [...] Organization Address City/State/[place] [address] (ABNORMAL) POCT Glucose (12/09/2021 12:02 PM EDT) athologist Signature POC Glucose 235 (H) 65 - 199 [facility] mg/dL [facility] Comment: Supplemental ranges: <140 mg/dL before meals <180 mg/dL all other times of the day Specimen Anatomical Collection Method Collection Time Receive d Time (Source) Location / / Volume Laterality Blood 12/09/2021 12:02 12/09/2021 PM EDT 12:02 PM EDT Iker Cuevas MD POINT OF CARE TEST ORDERABLE S Performing Organization Address City/[facility]/[place] [address] (ABNORMAL) POCT Glucose (12/09/2021 9:44 AM EDT) P athologist Signature POC Glucose 214 (H) 65 - 199 [facility] mg/dL [facility] Comment: Supplemental ranges: <140 mg/dL before meals <180 mg/dL all other times of the day Specimen Anatomical Collection Method Collection Time Receive d Time (Source) Location / / Volume Laterality Blood 12/09/2021 9:44 AM 2 9:44 EDT AM EDT Iker Cuevas MD POINT OF CARE TEST ORDERABLE S Performing Organization Address City/State/[place] [address] EKG 12 Lead (12/09/2021 7:57 AM EDT) Component Value Ref Range Test Analysis Performed Pathologis t Method Time At Signature Ventricular rate 101 BPM MUSE SYSTEM Atrial Rate 101 BPM MUSE SYSTEM P-R Interval 150 ms MUSE SYSTEM QRS Duration 112 ms MUSE SYSTEM Q-T Interval 364 ms MUSE SYSTEM QTC Calculated 471 ms MUSE SYSTEM (Bezet) Calculated P [place] 59 degrees MUSE SYSTEM Calculated R [place] -42 degrees MUSE SYSTEM Calculated T [place] 102 degrees MUSE SYSTEM INTERPRETATION Sinus tachycardia Occasional Premature ventricular com plexes MUSE SYSTEM Left axis deviation 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) Abnormal ECG When compared with ECG of 08-DEC-2021 16:40, Premature ventricular complexes are now Present Confirmed by MD Jim, Yoon ([id number]) on 12/10/2021 4:55:06 PM Specimen Anatomical Collection Method Collection Time Receive d Time (Source) Location / / Volume Laterality 12/09/2021 7:57 AM 2 4:55 EDT PM EDT Iker Cuevas MD ECG ORDERABLES Performing Organization Address City/State/ZIP Code Phon e Number MUSE SYSTEM (ABNORMAL) POCT Glucose (12/09/2021 7:28 AM EDT) P athologist Signature POC Glucose 263 (H) 65 - 199 [facility] mg/dL [facility] Comment: Supplemental ranges: <140 mg/dL before meals <180 mg/dL all other times of the day Specimen Anatomical Collection Method Collection Time Receive d Time (Source) Location / / Volume Laterality Blood 12/09/2021 7:28 AM 2 7:28 EDT AM EDT Iker Cuevas MD POINT OF CARE TEST ORDERABLE S Performing Organization Address City/State/[place] [address] (ABNORMAL) Hemoglobin A1c (12/09/2021 6:18 AM EDT) Analysis Performed At Patho logist Time Signature Hemoglobin A1C 7.4 (H) 4.3 - 5.6 [facility] LABOR[facility]ORY Comment: Reference Range: 4.3 - [...] Mellitus, Diabetes Care 2013; 36: Suppl. 1, S67-76 Est Avg Gluc See note mg/dL [facility] Comment: Estimated Average Glucose not appropriat [...] with hemoglobinopathies. Additional resources are available on [facility] ADA website. Macario HAMMOND, Ruthann J, Deysi R, et al. ??Tr anslating the A1C assay into estimated average glucose values. ??Diabetes Care 2008:31(8):0449-3634. Specimen Anatomical Collection Method Collection Time Receive d Time (Source) Location / / Volume Laterality Blood Venous Draw / 12/09/2021 6:18 AM 12/10/19 22 Unknown EDT 12:24 PM EDT Resulting Agency Comment Spec In Lab Migdalia BROWN CHEMISTRY ORDERABLES Performing Organization Address City/State/[place] [address] (ABNORMAL) Prothrombin Time (12/09/2021 6:18 AM EDT) athologist Signature PT 26.6 (H) 9.4 - 12.5 [facility] LABORATORY INR 2.3 [facility] Comment: An INR <2.0 indicates [...] Draw / 12/09/2021 6:18 AM 12/10/19 22 6:33 Unknown EDT AM EDT Resulting Agency Comment Spec In Lab iMgdalia BROWN HEMATOLOGY ORDERABLES Performing Organization Address City/State/[place] [address] Heparin (unfractionated) Level (12/09/2021 6:18 AM EDT) athologist Signature Heparin UFH 0.24 IU/mL [facility] LABORATORY Comment: Heparin (anti-Xa) levels should [...] Organization Address City/State/[place] [address] (ABNORMAL) Differential, Automated (12/09/2021 6:18 AM EDT) [facility] Method Time Signature Neutrophils % 91.5 % [facility] LABORATORY Neutr Abs (ANC) 15.78 (H) 1.70 - [facility] 6.10 [facility] x10(3)/[facility] LABORATORY Lymphocytes % 2.9 % [facility] LABORATORY Lymphocytes Abs 0.5 (L) 0.9 - 3.2 [facility] x10(3)/[facility] LABORATORY Monocytes % 4.9 % [facility] LAB[facility]ORY Monocyte Abs 0.8 0.3 - 0.9 [facility] x10(3)/[facility] LABORATORY Eosinophils % 0.0 % [facility] LAB[facility]ORY Eosinophils Abs 0.0 0.0 - 0.4 [facility] x10(3)/[facility] LABORATORY Basophils % 0.2 % [facility] LAB[facility]ORY Basophils Abs 0.0 0.0 - 0.1 [facility] x10(3)/[facility] LABORATORY Immature Gran % 0.50 % [facility] LAB[facility]ORY Comment: Immature granulocytes(IG's)percentage an d absolute count will include metamyelocytes, myelocytes, and promyelo cytes. Blood smears from CBCs yielding IG's will be scanned manually for concor dance. If this scan disagrees with the automated IG or if promyelocytes are not ed, a manual differential will be performed. Melisa Gran Abs 0.09 (H) 0.00 - 0.04 x10(3)/[facility] LABORATORY Specimen Anatomical Collection Method Collection Time Receive d Time (Source) Location / / Volume Laterality Blood 12/09/2021 6:18 AM 2 6:33 EDT AM EDT Resulting Agency Comment Spec In Lab Morgan BROWN HEMATOLOGY ORDERABLES Performing Organization Address City/State/[place] [address] (ABNORMAL) Hemogram (12/09/2021 6:18 AM EDT) Analysis Performed At Patho logist Time Signature WBC 17.2 (H) 4.0 - 9.5 [facility] x10(3)/[facility] LABORATORY RBC 4.32 (L) 4.58 - [facility] 5.54 [facility] x10(6)/[facility] LABORATORY Hemoglobin 12.6 (L) 13.7 - [facility] 16.5 g/dL [facility] LABORATORY Hematocrit 38.9 (L) 40.5 - [facility] 48.5 % [facility] LABORATORY MCV 90.0 82.9 - [facility] 93.1 [facility] LABORATORY MCH 29.2 27.5 - [facility] 32.1 pg [facility] LABORATORY MCHC 32.4 32.0 - [facility] 35.7 g/dL [facility] LABORATORY Platelets 193 145 - 357 [facility] x10(3)/[facility] LABORATORY RDWSD 50.4 (H) 36.0 - [facility] 45.0 [facility] LABORATORY RDWCV 15.2 (H) 11.4 - [facility] 13.8 % [facility] LABORATORY MPV 9.5 7.6 - 12.9 [facility] LABORATORY nRBC % Auto 0.0 % [facility] LABORATORY nRBC Abs Auto 0.000 0.000 - [facility] 0.000 [facility] x10(3)/[facility] LABORATORY Specimen Anatomical Collection Method Collection Time Receive d Time (Source) Location / / Volume Laterality Blood 12/09/2021 6:18 AM 2 6:33 EDT AM EDT Resulting Agency Comment Spec In Lab Morgan BROWN HEMATOLOGY ORDERABLES Performing Organization Address City/State/[place] [address] Lipid Panel (Reflex Direct LDL) (12/09/2021 6:18 AM EDT) P athologist Signature Chol, Total 105 mg/dL [facility] LAB[facility] Comment: Lower Risk: <200 mg/dL Average Risk: 200-239 mg/dL Higher Risk: >ba=883 mg/dL Triglycerides 133 mg/dL [facility] LABORATORY Comment: Average Risk/Lower Risk: <150 mg/dL Borderline High Risk: 150-199 mg/dL High Risk: 200-499 mg/dL Very High Risk: >zg=027 mg/dL HDL 42 mg/dL [facility] LABORATORY Comment: Males: ?? Higher Risk: <40 mg/dL Females: ?? Higher Risk: <50 mg/dL LDL Cholesterol 36 mg/dL [facility] LABORATORY Comment: Lowest Risk: <100 mg/dL Lower Risk: 100-129 mg/dL Borderline High Risk: 130-159 mg/dL High Risk: 160-189 mg/dL Very High Risk: >ht=884 mg/dL Chol/HDL Ratio 2.5 ratio [facility] LABORATORY Lipid Interpretation See Note [facility] LABORATORY Comment: Lipid management should be guided by a p atient? s ASCVD risk, goals and preferences. ACC/AHA Guidelines recommend high intens ity statin if clinical ASCVD or LDL greater than or equal to 190 mg/dL. http://[employer]/YSM-BIK-Btkazaezs Adults aged 40-75 with LDL 70-189 mg/dL should have their 10 year ASCVD risk estimated with the ACC/AHA ASCVD risk es timator http://tools.acc.org/OTODP-Kjxo-Xbhhuxbc r/ Statin should be discussed if risk [...] / Volume Laterality Blood 12/09/2021 6:18 AM 05/17/202 2 6:33 EDT AM EDT Resulting Agency Comment Spec In Lab Iker Cuevas MD CHEMISTRY ORDERABLES Performing Organization Address City/[facility]/ZIP Code Phon e Number [address] TSH (12/09/2021 6:18 AM EDT) P athologist Signature TSH 1.60 0.27 - 4.20 [place] RYAN mcIU/mL [facility] LABORATORY Comment: Reference Interval (mcIU/mL): Females: ??First Trimester: 0.23-3.88 ??Second Trimester: 0.22-3.90 ??Third Trimester: 0.44-4.66 Specimen Anatomical Collection Method Collection Time Receive d Time (Source) Location / / Volume Laterality Blood 12/09/2021 6:18 AM 2 6:33 EDT AM EDT Resulting Agency Comment Spec In Lab Iker Cuevas MD CHEMISTRY ORDERABLES Performing Organization Address [facility] [place] [address] Hepatic Function Panel (12/09/2021 6:18 AM EDT) P athologist Signature Total Protein 7.3 6.1 - 8.0 [place]BAR[place] RYAN g/dL [facility] Albumin 4.2 3.2 - 5.2 [place] RYAN g/dL [facility] AST 25 0 - 39 [place] unit/L [facility] ALT 15 0 - 55 [place] RY[place] unit/L [facility] Alk Phos 75 40 - 130 [place] RYAN unit/L [facility] Total 1.1 0.2 - 1.3 [place] Bilirubin mg/dL [facility] Bili, Direct 0.2 0.0 - 0.3 [place] mg/dL [facility]OR[facility]ORY Specimen Anatomical Collection Method Collection Time Receive d Time (Source) Location / / Volume Laterality Blood 12/09/2021 6:18 AM 2 6:33 EDT AM EDT Resulting Agency Comment Spec In Lab Iker Cuevas MD CHEMISTRY ORDERABLES Performing Organization Address City/[facility]/[place] [address] (ABNORMAL) BMP w/fasting Glucose (12/09/2021 6:18 AM EDT) athologist Signature Glucose 235 (H) 65 - 99 [facility] Fasting mg/dL [facility] LABORATORY Comment: ?Fasting* Glucose Interpretive C riteria [...] of Diabetes Mellitus, Position Statement from the [place] [employer]. ??Diabete s Care, Volume 33, Supplement 1, Jul 2009 BUN 49 (H) 10 - 20 mg/dL [facility] Creatinine 1.33 0.80 - 1.50 mg/dL [facility] Sodium 139 135 - 145 mmol/L [facility] [...] estions. Chloride 101 98 - 107 mmol/L [facility] CO2 21 (L) 22 - 31 mmol/L [facility] Anion Gap 17 (H) 5 - 15 mmol/L [facility] Calcium 8.8 8.5 - 10.5 mg/dL [facility] Estimated GFR 52 (L) >=60 mL/min/1.73 m?? [facility] LAB[facility] Comment: This patient? s estimated [...] Cuevas MD CHEMISTRY ORDERABLES Performing Organization Address City/[facility]/[place] [address] Magnesium (12/09/2021 6:18 AM EDT) P athologist Signature Magnesium 0.81 0.69 - 1.07 [facility] mmol/L [facility] LABOR[facility]ORY Specimen Anatomical Collection Method Collection Time Receive d Time (Source) Location / / Volume Laterality Blood 12/09/2021 6:18 AM 2 6:33 EDT AM EDT Resulting Agency Comment Spec In Lab Iker Cuevas MD CHEMISTRY ORDERABLES Performing Organization Address City/[facility] [place] [address] (ABNORMAL) Troponin (12/09/2021 6:18 AM EDT) P athologist Signature Troponin-T 1.13 (H) 0.00 - [facility] 0.00 ng/mL [facility]OR[facility]ORY Comment: The 99th percentile for Troponin T is le ss than 0.01 ng/mL, any detectable cTnT concentration using this assay should be considered elevated. According to the third universal definit ion of myocardial infarction the following criteria with a clinical prese ntation consistent with acute myocardial ischemia meets the diagnosis for a myocardial infarction ([place]). Detection of a rise and/or fall of [...] additional sample may be indicated. Reference: Third Saline Definition of Myocardial Infarction. Journal of the [place] [employer] 2012;60:1581-98 Specimen Anatomical Collection Method Collection Time Receive d Time (Source) Location / / Volume Laterality Blood 12/09/2021 6:18 AM 6:33 EDT AM EDT Resulting Agency Comment Spec In Lab Iker Cuevas MD CHEMISTRY ORDERABLES Performing Organization Address City/State/[place] [address] XR Chest One View [...] have questions please contact the health career services officer that requested your imaging first. ? Narrative [...] have questions please contact the health career services officer that requested your imaging first. Amber Sanches MD IMG DX ORDERABLES (ABNORMAL) BLOOD GAS 2 ARTERIAL (12/09/2021 5:14 AM EDT) Analysis Performed At Patho logist Time Signature pH Art 7.43 7.35 - [facility] 7.45 [facility] LABORATORY pCO2 Art 36 35 - 45 [facility] LABORATORY pO2 Art 67 (L) 85 - 104 [facility] LABORATORY HCO3 Art 23.4 20.0 - [facility] 26.0 [facility] mmol/L [facility] LABORATORY BE Art -0.9 -3.0 - 3.0 [facility] mmol/L [facility] Hgb Blood Gas 13.2 (L) 13.7 - [facility] 16.5 g/dL [facility] O2HB Art 91.3 (L) 94.0 - [facility] 97.0 % [facility] COHB Art 0.4 % [facility] Comment: Nonsmokers: 0.5-1.5% COHB Smokers: Variable, but usually less than 10% Toxic: 20-30% COHB Lethal: Greater than 60% COHB METHB Art 0.4 <=1.5 % [facility] Na Whole Blood 138 135 - 145 mmol/L [facility] K Whole Blood 4.1 3.5 - 5.0 mmol/L [facility] LAB[facility] Comment: Please note: Patients with WBC >100,000 may have falsely elevated Potassium levels. Contact the Clinical Chemistry L aboratory if there are any questions. ICa Whole Blood 1.09 (L) 1.15 - 1.33 mmol/L [facility] LABOR[facility] Comment: Note: ??Total bilirubin higher than 20 m g/dL may lead to falsely low ionized calcium. CL Whole Blood 104 98 - 107 mmol/L [facility] Gluc Whole Bld 223 (H) 65 - 199 mg/dL [facility] LABORATORY Comment: Diabetes: >=200 mg/dL plus symp toms. Lactate WB 2.7 (H) 0.5 - 2.2 mmol/L [facility] LABORAT[facility] FIO2 Art 35 % [facility] Flow Art 8.0 LPM [facility] PF Ratio Art 191 [facility] LABORATORY Specimen Anatomical Collection Method Collection Time Receive d Time (Source) Location / / Volume Laterality Blood 12/09/2021 5:14 AM 2 5:14 EDT AM EDT Iker Cuevas MD CHEMISTRY ORDERABLES Performing Organization Address City/State/[place] [address] POCT Glucose (12/09/2021 4:46 AM EDT) athologist Signature POC Glucose 198 65 - 199 [place] mg/dL [facility] Comment: Supplemental ranges: <140 mg/dL before meals <180 mg/dL all other times of the day Specimen Anatomical Collection Method Collection Time Receive d Time (Source) Location / / Volume Laterality Blood 12/09/2021 4:46 AM 2 4:46 EDT AM EDT Iker Cuevas MD POINT OF CARE TEST ORDERABLE S Performing Organization Address City/State/[place] [address] (ABNORMAL) POCT Glucose (12/09/2021 3:01 AM EDT) athologist Signature POC Glucose 225 (H) 65 - 199 [place]YAN mg/dL [facility] Comment: Supplemental ranges: <140 mg/dL before meals <180 mg/dL all other times of the day Specimen Anatomical Collection Method Collection Time Receive d Time (Source) Location / / Volume Laterality Blood 12/09/2021 3:01 AM 2 3:01 EDT AM EDT Iker Cuevas MD POINT OF CARE TEST ORDERABLE S Performing Organization Address City/State/[place] [address] (ABNORMAL) POCT Glucose (12/08/2021 10:55 PM EDT) P athologist Signature POC Glucose 327 (H) 65 - 199 [place]YAN mg/dL [facility] LABOR[facility]ORY Comment: Supplemental ranges: <140 mg/dL before meals <180 mg/dL all other times of the day Specimen Anatomical Collection Method Collection Time Receive d Time (Source) Location / / Volume Laterality Blood 12/08/2021 10:55 12/08/2021 PM EDT 10:55 PM EDT Iker Cuevas MD POINT OF CARE TEST ORDERABLE S Performing Organization Address City/[facility]/[place] [address] Heparin (unfractionated) Level (12/08/2021 10:03 PM EDT) athologist Signature Heparin UFH 0.18 IU/mL [facility] LABORATORY Comment: Heparin (anti-Xa) levels should [...] Cuevas MD HEMATOLOGY ORDERABLES Performing Organization Address City/[facility]/[place] [address] (ABNORMAL) Troponin (12/08/2021 10:03 PM EDT) athologist Signature Troponin-T 0.92 (H) 0.00 - [facility] 0.00 ng/mL [facility]OR[facility]ORY Comment: The 99th percentile for Troponin T is le ss than 0.01 ng/mL, any detectable cTnT concentration using this assay should be considered elevated. According to the third universal definit ion of myocardial infarction the following criteria with a clinical prese ntation consistent with acute myocardial ischemia meets the diagnosis for a myocardial infarction ([place]). Detection of a rise and/or fall of [...] additional sample may be indicated. Reference: Third Saline Definition of Myocardial Infarction. Journal of the [place] [employer] 2012;60:1581-98 Specimen Anatomical Collection Method Collection Time Receive d Time (Source) Location / / Volume Laterality Blood 12/08/2021 10:03 12/08/2021 PM EDT 10:31 PM EDT Resulting Agency Comment Spec In Lab Iker Cuevas MD CHEMISTRY ORDERABLES Performing Organization Address City/[facility]/[place] [address] (ABNORMAL) POCT Glucose (12/08/2021 8:22 PM EDT) athologist Signature POC Glucose 429 (H) 65 - 199 [facility] mg[facility] Comment: Supplemental ranges: <140 mg/dL before meals <180 mg/dL all other times of the day Specimen Anatomical Collection Method Collection Time Receive d Time (Source) Location / / Volume Laterality Blood 12/08/2021 8:22 PM 8:22 EDT PM EDT Iker Cuevas MD POINT OF CARE TEST ORDERABLE S Performing Organization Address City/[facility]/[place] [address] (ABNORMAL) POCT Glucose (12/08/2021 7:06 PM EDT) athologist Signature POC Glucose 442 (H) 65 - 199 [facility]/dL [facility]ORY Comment: Supplemental ranges: <140 mg/dL before meals <180 mg/dL all other times of the day Specimen Anatomical Collection Method Collection Time Receive d Time (Source) Location / / Volume Laterality Blood 12/08/2021 7:06 PM 2 7:06 EDT PM EDT Iker Cuevas MD POINT OF CARE TEST ORDERABLE S Performing Organization Address City/[facility]/ZIP Code Phon e Number [address] Magnesium (12/08/2021 6:02 PM EDT) athologist Signature Magnesium 0.86 0.69 - 1.07 [facility] mmol/L [facility] LABORATORY Specimen Anatomical Collection Method Collection Time Receive d Time (Source) Location / / Volume Laterality Blood 12/08/2021 6:02 PM 2 6:36 EDT PM EDT Resulting Agency Comment Spec In Lab Iker Cuevas MD CHEMISTRY ORDERABLES Performing Organization Address City/State/[place] [address] (ABNORMAL) Basic Metabolic Panel (non-fasting) (12/08/2021 6:02 PM EDT) athologist Signature Glucose Lvl 392 (H) 65 - 199 [facility] mg/dL [facility] LABORATORY Comment: Diabetes: >=200 mg/dL plus symp toms BUN 41 (H) 10 - 20 mg/dL [facility] LABORATORY Creatinine 1.44 0.80 - 1.50 mg/dL [facility] LABOR[facility] Sodium 138 135 - 145 mmol/L [facility] LAB[facility]AT[facility] Potassium 4.5 3.5 - 5.0 mmol/L [facility] LABORATORY Comment: Please note: ??Patients with WBC >100,00 0 may have falsely elevated Potassium levels. ??For accurate Potassium quantif ication in these patients send serum separator tube (gold top) for subsequent determinations. ??Contact the Clinical Chemistry Laboratory if there are any qu estions. Chloride 102 98 - 107 mmol/L [facility] CO2 20 (L) 22 - 31 mmol/L [facility] Anion Gap 16 (H) 5 - 15 mmol/L [facility] Calcium 8.6 8.5 - 10.5 mg/dL [facility]ORY Estimated GFR 47 (L) >=60 mL/min/1.73 m?? [facility] Comment: This patient? s estimated [...] Organization Address City/State/[place] [address] (ABNORMAL) Differential, Automated (12/08/2021 6:02 PM EDT) [facility] gist Method Time Signature Neutrophils % 89.5 % [facility] LABOR[facility] Neutr Abs (ANC) 13.97 (H) 1.70 - [facility] 6.10 [facility] x10(3)/[facility] L LABORATORY Lymphocytes % 3.7 % [facility] LABORATORY Lymphocytes Abs 0.6 (L) 0.9 - 3.2 [facility] x10(3)/[facility] LABORATORY Monocytes % 6.1 % [facility] LABORATORY Monocyte Abs 1.0 (H) 0.3 - 0.9 [facility] x10(3)/[facility] LABORATORY Eosinophils % 0.0 % [facility] LABORATORY Eosinophils Abs 0.0 0.0 - 0.4 [facility] x10(3)/[facility] LABORATORY Basophils % 0.2 % [facility] LABORATORY Basophils Abs 0.0 0.0 - 0.1 [facility] x10(3)/[facility] LABORATORY Immature Gran % 0.50 % [facility] LAB[facility]ORY Comment: Immature granulocytes(IG's)percentage an d absolute count will include metamyelocytes, myelocytes, and promyelo cytes. Blood smears from CBCs yielding IG's will be scanned manually for concor dance. If this scan disagrees with the automated IG or if promyelocytes are not ed, a manual differential will be performed. Melisa Gran Abs 0.08 (H) 0.00 - 0.04 x10(3)/[facility] LABORATORY Specimen Anatomical Collection Method Collection Time Receive d Time (Source) Location / / Volume Laterality Blood 12/08/2021 6:02 PM 6:36 EDT PM EDT Resulting Agency Comment Spec In Lab Morgan BROWN HEMATOLOGY ORDERABLES Performing Organization Address City/State/[place] [address] (ABNORMAL) Hemogram (12/08/2021 6:02 PM EDT) Analysis Performed At Patho logist Time Signature WBC 15.6 (H) 4.0 - 9.5 [facility] x10(3)/[facility] LABORATORY RBC 4.05 (L) 4.58 - [facility] 5.54 [facility] x10(6)/[facility] LABORATORY Hemoglobin 11.8 (L) 13.7 - [facility] 16.5 g/dL [facility] LABORATORY Hematocrit 35.8 (L) 40.5 - [facility] 48.5 % [facility]ATORY MCV 88.4 82.9 - [facility] 93.1 fL [facility] MCH 29.1 27.5 - [facility] 32.1 pg [facility] LABORATORY MCHC 33.0 32.0 - [facility] 35.7 g/dL [facility] LABORATORY Platelets 178 145 - 357 [place] DAVIS x10(3)/[facility] LABORATORY RDWSD 49.3 (H) 36.0 - [facility]BAR[facility] DAVIS 45.0 [facility] LABORATORY RDWCV 15.1 (H) 11.4 - BARBARA DAVIS 13.8 % [facility] LABORATORY MPV 10.4 7.6 - 12.9 BARBAR[place] DAVIS [facility] LABORATORY nRBC % Auto 0.0 % [facility] LABORATORY nRBC Abs Auto 0.000 0.000 - [facility] DAVIS 0.000 [facility] x10(3)/[facility] LABORATORY Specimen Anatomical Collection Method Collection Time Receive d Time (Source) Location / / Volume Laterality Blood 12/08/2021 6:02 PM 6:36 EDT PM EDT Resulting Agency Comment Spec In Lab Morgan BROWN HEMATOLOGY ORDERABLES Performing Organization Address City/State/[place] [address] (ABNORMAL) Troponin (12/08/2021 6:02 PM EDT) P athologist Signature Troponin-T 0.89 (H) 0.00 - [facility] DAV[facility] 0.00 ng/mL [facility] LABORATORY Comment: The 99th percentile for Troponin T is le ss than 0.01 ng/mL, any detectable cTnT concentration using this assay should be considered elevated. According to the third universal definit ion of myocardial infarction the following criteria with a clinical prese ntation consistent with acute myocardial ischemia meets the diagnosis for a myocardial infarction ([place]). Detection of a rise and/or fall of [...] additional sample may be indicated. Reference: Third Saline Definition of Myocardial Infarction. Journal of the [place] [employer] 2012;60:1581-98 Specimen Anatomical Collection Method Collection Time Receive d Time (Source) Location / / Volume Laterality Blood 12/08/2021 6:02 PM 6:36 EDT PM EDT Resulting Agency Comment Spec In Lab Iker Cuevas MD CHEMISTRY ORDERABLES Performing Organization Address City/State/ZIP Code [place] [address] COVID-19 PCR (12/08/2021 5:00 PM EDT) [facility] Method Time Signature SARS-CoV-2 Not Detected Not Detected BARBARA RNA PCR [facility] LABORATORY Comment: This result should be interpreted [...] using the Simplexa COVID-19 Direct Assay by Smart[employer]joi marcum as authorized by the FDA issued [...] Department of Pathology and Laboratory Medicine at [facility], certified under the Clinical Laboratory Improvement Amendmen [...] clinical management guidance information are available at th e CDC Coronavirus Disease 2019 (COVID-19) webpage under Information fo r Healthcare Professionals (https://www.cdc.gov/coronavirus/2019-nc ov/hcp/index.html). Additional information about this and ot her EUA tests can be found in provider and patient fact sheets at the following FDA website: https://www.fda.gov/medical-devices/llxxhcsctmf-kdkgdhc-5005-szlwu-39-yvobxywki- nwz-ecwrbxycokrmyr-cuiculk-devices/axoaq-sivrskjqgrm-zenf SARS-CoV-2 Source [employer] Swab [facility] LABORATORY Specimen (Source) Anatomical Collection Method Collection Time Re ceived Time Location / / Volume Laterality Nasopharyngeal Swab 12/08/2021 5:00 12/08 PM EDT 6:03 PM EDT Comment: Symptoms->Surveillance Resulting Agency Comment Spec In Lab Iker Cuevas MD MICROBIOLOGY - GENERAL ORDER ROBS[place] Performing Organization Address City/State/[place] [address] EKG 12 Lead (12/08/2021 4:40 PM EDT) Component Value Ref Range Test Analysis Performed Pathologis t Method Time At Signature Ventricular rate 78 BPM MUSE SYSTEM Atrial Rate 78 BPM MUSE SYSTEM P-R Interval 152 ms MUSE SYSTEM QRS Duration 96 ms MUSE SYSTEM Q-T Interval 396 ms MUSE SYSTEM QTC Calculated 451 ms MUSE SYSTEM (Bezet) Calculated P [place] 44 degrees MUSE SYSTEM Calculated R [place] -31 degrees MUSE SYSTEM Calculated T [place] 124 degrees MUSE SYSTEM INTERPRETATION Normal sinus [...] POC Glucose 400 (H) 65 - 199 [facility] mg/dL [facility] LABORATORY Comment: Supplemental ranges: <140 mg/dL before meals <180 mg/dL all other times of the day Specimen Anatomical Collection Method Collection Time Receive d Time (Source) Location / / Volume Laterality Blood 12/08/2021 4:34 PM 2 4:34 EDT PM EDT Iker Cuevas MD POINT OF CARE TEST ORDERABLE S Performing Organization Address City/State/[place] [address] documented in this encounter Visit Diagnoses Not on filedocumented in this encounter Admitting Diagnoses Diagnosis NSTEMI (non-ST elevated myocardial infar ction) Acute myocardial infarction, subendocard ial infarction, episode of care unspecified documented in this encounter Administered Medications Inactive Administered Medications - up to 3 most recent administrations Medication Order MAR Action Action Date Dose Rate Site apixaban (Eliquis) tablet 5 mg Given 12/12/2021 [...] Routine clopidogreL (Plavix) tablet 75 mg Given 12/12/2021 [...] 10 mg, Oral, DAILY, First dose on Ivis 12/11/21 at 0915, Until Discontinued, Routine fentaNYL (pf) (50 mcg/mL) multi-dose Given 12/10/2021 10:00 AM E DT 12.5 mcg injection ONCE PRN, Starting on Wed12/10/21 at 0834, Until Wed12/10/21 at 1230, Intra-Operative (Intra-Procedure), Routine Given 12/10/2021 8:34 AM EDT 12.5 mcg glucagon (Glucagen) (1 mg/mL) injection solution 1 [...] grams.), Routine heparin (porcine) (1,000 units/mL) Given 12/10/2021 9:52 AM EDT 2,000 Units injection ONCE PRN, Starting on Wed12/10/21 at 0907, Until Wed12/10/21 at 1230, Cath (Intra-Procedure), Routine Given 12/10/2021 9:33 AM EDT 2,000 Units Given 12/10/2021 9:18 AM EDT 1,500 Units insulin glargine-ygfn (Semglee) (100 Given 12/11/2021 8:42 PM ED T 42 Units unit/mL) subcutaneous injection vial 42 Units 42 Units, Subcutaneous, NIGHTLY, First dose (after last modification) on Wed12/11/21 at 2100, Until Discontinued, Routine insulin lispro (HumaLOG;Admelog) (100 Given 12/12/2021 [...] 10 Units insulin lispro (HumaLOG;Admelog) (100 Given 12/12/2021 [...] 12/11/2021 6:47 PM EDT 6 Units insulin regular (HumuLIN R,NovoLIN R) (100 Given 12/10/2021 9:19 AM EDT 2 Units unit/mL) injection vial ONCE PRN, Starting on Wed12/10/21 at 0919, Until Wed12/10/21 at 1230, Intra-Operative (Intra-Procedure), Routine iohexoL (Omnipaque) (350 mg/mL) solution Given 12/10/2021 10:46 AM EDT 145 mLs ONCE PRN, Starting on Wed12/10/21 at 1046, Until Wed12/10/21 at 1230, Cath (Intra-Procedure), Routine ipratropium-albuteroL (Duoneb) 0.5 mg-3 mg(2.5 Given [...] Given 12/10/2021 7:35 AM EDT 100 mg metoprolol tartrate (Lopressor) tablet 12.5 Given 11/24 6:31 AM EDT 12.5 mg mg 12.5 mg, Oral, EVERY 6 HOURS SCHEDULED, First dose on Wed12/08/21 at 1800, Until Discontinued, Routine Given 12/12/2021 12:01 AM EDT 12.5 mg Given 12/11/2021 5:17 PM EDT 12.5 mg midazolam (pf) (Versed) (1 mg/mL) multi-dose Given 10:00 AM EDT 0.5 mg injection ONCE PRN, Starting on Wed12/10/21 at 0834, Until Wed12/10/21 at 1230, Cath (Intra-Procedure), Routine Given 12/10/2021 8:34 AM EDT 0.5 mg niCARdipine (Cardene) (100 mcg/mL) dilution Given 11/23 10:30 AM EDT 300 mcg ([employer] COUNTER CLERK) ONCE PRN, Starting on Wed12/10/21 at 1030, Until Wed12/10/21 at 1230, Intra-Operative (Intra-Procedure), Routine nitroGLYcerin 100 mcg/mL intracoronary Given 12/10/2021 9:02 AM EDT 150 mcg dilution ONCE PRN, Starting on Wed12/10/21 at 0858, Until Wed12/10/21 at 1230, Cath (Intra-Procedure), Routine Given 12/10/2021 8:58 AM EDT 150 mcg pantoprazole EC (Protonix) tablet 40 mg Given 12/12/2021 8:29 AM EDT 40 mg 40 mg, Oral, DAILY, First dose on Wed12/08/21 at 1830, Until Discontinued, DO NOT CRUSH OR OPEN, Routine Given 12/11/2021 8:35 AM EDT 40 mg Given 12/10/2021 7:35 AM EDT 40 mg polyethylene glycoL (Miralax) packet 17 g Given 12/11/2021 8:44 AM EDT 17 g 17 g, Oral, DAILY, First dose on Wed12/09/21 at 1715, Until Discontinued, Routine Given 12/09/2021 5:02 PM EDT 17 g prasugreL (Effient) tablet Given 12/10/2021 10:13 AM EDT 60 mg ONCE PRN, Starting on Wed12/10/21 at 1013, Until Wed12/10/21 at 1230, Cath (Intra-Procedure), Routine senna-docusate (Pericolace) 8.6-50 mg pe r [...] Wed12/08/21 at 2100, Until Discontinued, Routine Given 12/11/2021 9:00 AM EDT 5 mLs Given 12/10/2021 8:34 PM EDT 5 mLs spironolactone (Aldactone) tablet 25 mg Given 12/12/2021 8:29 AM EDT 25 mg 25 mg, Oral, DAILY, First dose on Wed12/11/21 at 0915, Until Discontinued, DO NOT SPLIT, CRUSH OR OPEN, Routine Given 12/11/2021 8:44 AM EDT 25 mg torsemide (Demadex) tablet 40 mg Given 12/12/2021 8:28 AM EDT 40 mg 40 mg, Oral, DAILY, First dose on Wed12/11/21 at 0930, Until Discontinued, Routine Given 12/11/2021 8:44 AM EDT 40 mg verapamiL (Isoptin) (2.5 mg/mL) injectio n Given 12/10/2021 9:02 AM EDT 2.5 mg ONCE PRN, Starting on Wed12/10/21 at 0857, Until Wed12/10/21 at 1230, Administer over 2 Minutes, Cath (Intra-Procedure) Given 12/10/2021 8:57 AM EDT 2.5 mg documented in this encounter Active and [...] Galeas RN) 0830 (Given - Provider: Lilliana Esteban, VAMSI) 5 mg, Oral, 2 TIMES DAILY, First dose on Wed12/10/21 at 2100, Until Discontinued, Anticoagulant, Routine aspirin chewable tablet 81 mg 0735 (Given - Provider: Emma Garcia RN)0805 (MAR Hold - Provider: Admin Adt - Reason: Transfer to a Procedural area)0900 (Not Given - Provider: Emma Garcia RN - Reason: See comment - Comment: given before cath) 0834 (Given - Provider: Emma Garcia, VAMSI) 0828 (Given - Provider: Lilliana Esteban, VAMSI) 81 mg, Oral, DAILY, First dose on Wed at 0900, Until Discontinued, Routine 1230 (MAR Unhold - Provider: Admin Adt) atorvastatin (Lipitor) [...] Garcia RN) 0829 (Given - Provider: Lilliana Esteban RN) 75 mg, Oral, DAILY, First dose on [...] (10 mg/mL) injection 80 mg (COMPLET ED) 174 (Given - Provider: Emma Garcia RN) 80 [...] BG less than 70 mg/dL., Routine 1230 (SEP Unhold - Provider: Admin Adt)1358 (Given - [...] (Given - Provider: Emma Garcia RN )0805 (MAR Hold - Provider: Admin Adt - Reason: [...] 1717 (Given - Provider: Emma Garcia RN )2033 (Given - Provider: Barbara Boogie RN)2346 (Given - Provider: Barbara Boogie, RN) 0507 (Given - Provider: Barbara Boogie RN)0745 (Given - Provider: Emma Garcia RN)1206 (Given - Provider: Emma Garcia RN)1609 (Given - Provider: Emma Garcia RN)1847 (Given - Provider: Emma Garcia RN)204 (Given - Provider: Derrick Galeas RN) 0000 [...] Routine levothyroxine (Synthroid) tablet 175 mcg 0805 (Sep d - Provider: Admin Adt - Reason: Transfer to a Procedural area)0900 (Not Given - Provider: Emma Garcia RN - Reason: Transfer to a Procedural area)1230 (SEP Unhold - Provider: Admin Adt) 0834 (Given - Provider: Emma Garcia RN) 0829 (Given - Provider: Lilliana Esteban, VAMSI) 175 mcg, Oral, DAILY, First dose on Wed12/08/21 at 1730, Until Discontinued, Routine losartan (Cozaar) tablet 100 mg 0735 (Given - Provider : Emma Garcia RN)0805 (SEP Hold - Provider: Admin Adt - Reason: Transfer to a Procedural area)0900 (Not Given - Provider: Emma Garcia RN - Reason: See comment - Comment: given before cath) 0835 (Given - Provider: Emma Garcia RN) 0828 (Given - Provider: Lilliana Esteban, VAMSI) 100 mg, Oral, DAILY, First dose on Wed at 0900, Until Discontinued, Routine 1230 (SEP Unhold - Provider: Admin Adt) magnesium sulfate 2 g in sterile water 50 mL infusion (COMPLETED) 1043 (New Bag - Provider: Anthony Fatima RN)1243 (Stopped - Provider: Emma Garcia RN) 2 [...] Admin Adt) 0504 (Given - Provider: Barbara Boogie, VAMSI)1217 (Given - Provider: Emma Garcia, VAMSI)1717 (Given - Provider: Emma Garcia, VAMSI) 0001 (Given - Provider: Derrick Galeas, VAMSI)0631 (Given - Provider: Derrick Galeas, VAMSI) 12.5 mg, Oral, EVERY 6 HOURS SCHEDULED, First dose on Wed12/08/21 at 1800, Until Discontinued, Routine 1744 (Given - Provider: Emma Garcia RN )2345 (Given - Provider: Barbara Boogie RN) pantoprazole EC (Protonix) tablet 40 mg 0735 (Given - Provider: Emma Garcia, VAMSI)0805 (SEP Hold - Provider: Admin Adt - Reason: Transfer to a Procedural area)0900 (Not Given - Provider: Emma Garcia RN - Reason: See comment - Comment: given before cath) 0835 (Given - Provider: Emma Garcia, VAMSI) 0829 [...] 0844 (Given - Provider: Emma Garcia RN) 0900 (Hold - Provider: Lilliana Esteban RN - Reason: Patient/family refused) 17 g, Oral, [...] 0900 (Given - Provider: Emma Garcia, VAMSI )2041 (Given - Provider: Derrick Galeas, VAMSI) 0900 (Hold - Provider: Lilliana cerda RN - Reason: Loss of access) 5 mL, Intravenous, 2 TIMES DAILY, First dose on Wed12/08/21 at 2100, Until Discontinued, Routine 2033 (Given - Provider: Barbara Boogie, RN) spironolactone (Aldactone) tablet 25 mg 0844 (Given - Provider: Emma Garcia, VAMSI) 0829 (Given - Provider: Lilliana friedman, RN) 25 mg, Oral, DAILY, First dose on Ivis at 0915, Until Discontinued, DO NOT SPLIT, CRUSH OR OPEN, Routine torsemide (Demadex) tablet 40 mg 0844 (Given - P rovider: Emma Garcia, VAMSI) 0828 (Given - Provider: Lilliana Esteban, RN) 40 mg, Oral, DAILY, First dose on Ivis at 0930, Until Discontinued, Routine PRN Medication Order 12/10/2021 12/11/2021 12/12/2021 acetaminophen (Tylenol) tablet 650 mg 0805 ([facility] Hold - Provider: Admin Adt - Reason: Transfer to a Procedural area)1230 ([facility] Unhold - Provider: Admin Adt) 650 mg, Oral, EVERY 4 HOURS PRN, Startin g on Wed12/08/21 at 1639, Until Wed12/12/21 at 1312, Pain, Headaches, Maximum dose of acetaminophen is 4000 mg from all sources in 24 hours. When ordered for pain , acetaminophen should be given even whe n other ordered pain medications are indicated. , Routine bisacodyL (Dulcolax) suppository 10 mg 0805 ([facility] Hold - Provider: Admin Adt - Reason: Transfer to a Procedural area)1230 ([facility] Unhold - Provider: Admin Adt) 10 mg, Rectal, DAILY PRN, Starting on e 12/09/21 at 1629, Until Wed12/12/21 at 1312, Constipation, Routine dextrose 10% infusion(Linked Group 2) 0805 ([facility] Hold - Provider: Admin Adt - Reason: Transfer to a Procedural area)1230 ([facility] Unhold - Provider: Admin Adt) 250 mL, [...] vial (CANCELED) 0919 (Given - Provider: Shirin Melgoza, VAMSI) ONCE PRN, Starting on Wed12/10/21 at 091 [...] (Intra-Procedure), Routine niCARdipine (Cardene) (100 mcg/mL) dilution (APPLIANCE PARTS COUNTER CLERK) (CANCELED) 1030 (Given - Provider: Vitaliy Nobles MD) ONCE PRN, Starting on Wed12/10/21 at 103 0, Until Wed12/10/21 at 1230, Intra- Operative (Intra-Procedure), Routine nitroGLYcerin (Nitrostat) disintegrating tablet 0.4 mg 08 (SEP Hold - Provider: Admin Adt - [...] Normal Sean ine 0.9) flush 5-20 mL 08 (SEP Hold - Provider: Admin Adt - [...] episode. & nbsp; For persistent hypoglycemia, con medical staff assistant longer-acting treatment for the duration of the [...]
Routine documented in this encounter Care Teams Police Communications Operator Relationship Specialty Start Date End Date Lovely Vicente MD PCP - General 04/16/15 [address] [place] [address] documented as of this encounter
--- OUTSIDE RECORDS SUMMARY | 2022-02-06 13:31 | XMS_ITS | Encounter Summary ---
:1945 Author Organization [facility] [place] [address] Care Team Providers Name Role Phone Lovely Vicente MD Primary Care Provider Encounter Details Date Type Department Care Team Description 01/16/2019 Laboratory Appointment Lab 3L [facility] [place] [address] Social History Tobacco Use Types Packs/Day Years [...] 02/19/2022 Office Visit Cardiology Liz Poole PA [facility] er Cardiology Dept [place], [place] [address] (Wo rk) 03/12/2022 Office Visit Cardiology Vitaliy Nobles MD [facility] ER CARDIOLOGY [place], [place] [address] (Wo rk) documented as of this encounter Procedures Procedure Name Priority Date/Time Associated Comments Diagnosis PRO-BRAIN NATRIURETIC STAT 01/16/2019 7:49 AM Chronic systo lic Results for this PEPTIDE EDT heart failure procedure are in the results section. BASIC METABOLIC PANEL STAT 01/16/2019 7:49 AM Chronic systo lic Results for this (NON-FASTING) EDT heart failure procedure are in the results section. documented in this encounter Results (ABNORMAL) pro-Brain Natriuretic Peptide (01/16/2019 7:49 AM EDT) athologist Signature ProBNP 780 (H) <=125 pg/mL [facility] Specimen Anatomical Collection Method Collection Time Receive d Time (Source) Location / / Volume Laterality Blood specimen 01/16/2019 7:49 AM 019 7:55 (specimen) EDT AM EDT Resulting Agency Comment Spec In Lab Danette Maxwell APRN CHEMISTRY ORDERABLES Performing Organization Address City/State/[place] [address] (ABNORMAL) Basic Metabolic Panel (non-fasting) (01/16/2019 7:49 AM EDT) athologist Signature Glucose Lvl 105 65 - 199 [facility] mg/dL [facility] Comment: Diabetes: >=200 mg/dL plus symp toms BUN 25 (H) 10 - 20 mg/dL [facility] Creatinine 1.08 0.80 - 1.50 mg/dL [facility] Sodium 145 135 - 145 mmol/L [facility] Potassium 4.7 3.5 - 5.0 mmol/L [facility] Comment: Please note: ??Patients with WBC >100,00 0 may have falsely elevated Potassium levels. ??For accurate Potassium quantif ication in these patients send serum separator tube (gold top) for subsequent determinations. ??Contact the Clinical Chemistry Laboratory if there are any qu estions. Chloride 106 98 - 107 mmol/L [facility] CO2 26 22 - 31 mmol/L [facility] Anion Gap 13 5 - 15 mmol/L [facility] Calcium 9.2 8.5 - 10.5 mg/dL [facility] Estimated GFR 68 >=60 mL/min/1.73 m?? [facility] Comment: The eGFR was calculated using the CKD-EP I equation. As with all creatinine based estimates of kidney function, eGFR values calculated with the CKD-EPI equation are not accurate in patients wi th acute kidney failure, extremes of body mass or the acutely ill. http://[employer]/[facility]ULSAnkf eGFR 79 >=60 mL/min/1.73 m?? [facility] Comment: The eGFR was calculated using the CKD-EP I equation. As with all creatinine based estimates of kidney function, eGFR values calculated with the CKD-EPI equation are not accurate in patients wi th acute kidney failure, extremes of body mass or the acutely ill. http://[employer]/[facility]kf Specimen Anatomical Collection Method Collection Time Receive d Time (Source) Location / / Volume Laterality Blood specimen 01/16/2019 7:49 AM 019 7:55 (specimen) EDT AM EDT Resulting Agency Comment Spec In Lab Danette Maxwell APRN CHEMISTRY ORDERABLES Performing Organization Address City/State/[place] [address] documented in this encounter Visit Diagnoses Diagnosis Chronic systolic heart failure documented in this encounter Care Teams Parquet Floor Layer'S Helper Relationship Specialty Start Date End Date Lovely Vicente MD PCP - General 04/16/[address] [place] [address] documented as of this encounter
--- OUTSIDE RECORDS SUMMARY | 2022-02-06 13:31 | XMS_ITS | Encounter Summary ---
:1945 Author Organization [facility] [place] [address] Care Team Providers Name Role Phone Lovely Vicente MD Primary Care Provider Encounter Details Date Type Department Care Team Description 02/19/2020 Telephone Dermatology at [facility] Ariana Wilder LPN [address] [place] [address] Social History Tobacco Use Types Packs/Day Years Used Date Former Smoker Cigarettes 3 5 Quit: 07/26/18 69 Smokeless Tobacco: Never Used Alcohol Use Standard Drinks/Week Comments No 0 (1 standard drink = 0.6 oz pure alcoho l) Sex Assigned at Date Recorded Not on file documented as of this encounter Miscellaneous Notes Telephone Encounter - Araina Wilder LPN - 02/19/2020 11:06 AM EDT Called and spoke with Don. He said he is well and all areas area resolved. Telephone Encounter - Ariana Wilder LPN - 02/19/2020 11:06 AM EDT ----- Message from Rigoberto Garcia III, MD sent at 02/16/2020 7:36 AM EDT ----- Please check on the lesions we treated. Thanks. See as planned if needed, sooner if problems arise. He didn't read the e-mail documented in this encounter Plan of Treatment Upcoming Encounters Date Type Specialty Care Team Description 02/19/2022 Laboratory Appointment Lab 02/19/2022 Office Visit Cardiology Liz Poole PA [facility] er Cardiology Dept [place], [place] [address] (Wo rk) 03/12/2022 Office Visit Cardiology Vitaliy Nobles MD [facility] ER CARDIOLOGY [place], [place] [address] (Wo rk) documented as of this encounter Visit Diagnoses Not on filedocumented in this encounter Care Teams Proprietary Trader Relationship Specialty Start Date End Date Lovely Vicente MD PCP - General 04/16/15 [facility] [address] [place] [address] documented as of this encounter
--- OUTSIDE RECORDS SUMMARY | 2022-02-06 13:31 | XMS_ITS | Encounter Summary ---
:1945 Author Organization [facility] 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 Cardiomyopathy, ischemic; [facility] ASCVD (arteriosclerotic card iovascular disease); [place], [place] Essential hypertension; [phone] CARDIOLOGY MARIA VICTORIA on CPAP [phone] [place], [place] [address] Social History Tobacco Use [...] Sign Reading Time Taken Comments Blood Pressure 144/73 08/15/2018 9:03 AM EST Pulse 70 08/15/2018 9:03 AM EST Temperature - - Respiratory Rate - - Oxygen Saturation 99% 08/15/2018 9:03 AM EST Inhaled Oxygen Concentration - - Weight 88.9 kg (196 lb) 08/15/2018 9:03 AM EST Height 172.7 cm (5' 8) 08/15/2018 9:03 AM EST Body Mass Index 29.8 08/15/2018 9:03 AM EST documented in this encounter Progress Notes Danette Maxwell, SECURITY SYSTEM TECHNICIAN - 08/15/2018 9:00 AM EST Images from the original note [...] anticoagulation. Discharge weight: 200 lb Last visit: 04/18/2018. No changes were made. He was feeling good. Interim events: No ED visits or hospitalizations Today: Here today for follow-up and echocardiogram No bleeding events on coumadin Denies chest pain Does have SOB with shoveling and cold air Weight at home is up. 185 lb Denies LE edema or abdominal distention Sleeping without PND or orthopnea. Using CPAP BP elevated today. He tells me he goes to PT and his BP is always better at therapy Call to [facility] PT Denies lightheadedness or dizziness Denies pre-syncope or [...] Melanoma ? Your Medications Accurate as of 08/14/18 1:37 PM. If you have any questions, ask [...] diagnostic strips Quantity: 100 each Refills: 1 aspirin 81 mg Tbec Take 81 mg [...] by mouth daily. 2.5 mg Refills: 0 Allergies: Review of patient's [...] presyncope or syncope. ?? Physical Exam: BP 144/73 Pulse 70 Ht 172.7 cm (5' 8) Wt 88.9 [...] Warm to feet? Lab data: Recent Labs 08/15/18 0804 NA 144 K 4.6 CL 102 CO2 27 BUN 21* CREATININE 1.08 GLUCOSE 116 ProBNP Date Value Ref Range Status 08/15/2018 1,797 (H) <=125 pg/mL Final 04/18/2018 2,199 (H) <=125 pg/mL Final 11/29/2017 1,769 (H) <=125 pg/mL Final Lab Results Component [...] S/p CABG, THOMPSON->LAD, Seq SVG->OM1->D1 (07/07/2017) Continue ASA, BB and statin Stable No chest pain ?? 2. Ischemic cardiomyopathy EF was 45%. Today's echo shows EF down 3035% On BB and KIRSTIN-I No spironolactone as K+ has been > 5.0 ?? 3. Systolic heart failure EF 30-35% today ACC/AHA stage C, NYHA FC II-III Continue Lasix 20 mg daily ?? 4. HTN BP 144/73 today Patient tells me this is high for him. BP at PT is lower. I have placed a Call to PCP office to review BPs ?? 5. Hx of hyperkalemia K+ 4.6 today 6. Post-op atrial fibrillation [id number] (CHF, HTN, DM, vascular disease, thromboembolism) Amiodarone discontinued Continue coumadin INR managed by PCP. 2.1 today 7. PAD 08/06/2017: Right 1st, 2nd, 3rd toe amputation 08/11/2017: Left??femoral arterial access, RLE??angiogram, Balloon angioplasty of R PT with Eleazar 2.5 x 80 10/25/2017: right popliteal-pedal bypass at [facility] 8. Hypothyrodism S/p thyroidectomy for goiter [...] following labs or other testing advised: proBNP, BMP at next visit 5. Heart Failure Clinic follow up scheduled for: 4-6 month follow-up Danette Maxwell APRN 08/14/2018 documented in this encounter Plan of Treatment Upcoming Encounters Date Type Specialty Care Team Description 02/19/2022 Laboratory Appointment Lab 02/19/2022 Office Visit Cardiology Liz Poole PA [facility] Cardiology Dept [place], [place] [address] (Wo rk) 03/12/2022 Office Visit Cardiology Vitaliy Nobles MD [facility] CARDIOLOGY [place], [place] [address] (Wo rk) documented as of this encounter Results Lipid Panel (08/15/2018 8:04 AM EST) athologist Signature Chol, Total 75 mg/dL [facility] Comment: Lower Risk: <200 mg/dL Average Risk: 200-239 mg/dL Higher Risk: >ig=357 mg/dL Triglycerides 185 mg/dL [facility] Comment: Average Risk/Lower Risk: <150 mg/dL Borderline High Risk: 150-199 mg/dL High Risk: 200-499 mg/dL Very High Risk: >wt=406 mg/dL HDL 32 mg/dL [facility] Comment: Males: ?? Higher Risk: <40 mg/dL Females: ?? HIgher Risk: <50 mg/dL LDL Cholesterol 6 mg/dL [facility] Comment: Lowest Risk: <100 mg/dL Lower Risk: 100-129 mg/dL Borderline High Risk: 130-159 mg/dL High Risk: 160-189 mg/dL Very High Risk: >bf=110 mg/dL Chol/HDL Ratio 2.3 ratio [facility] Lipid Interpretation See Note [facility] Comment: Lipid management should be guided by a p atient? s ASCVD risk, goals and preferences. ACC/AHA Guidelines recommend high intens ity statin if clinical ASCVD or LDL greater than or equal to 190 mg/dL. http://[employer].com/GRJ-TIF-Wjolvvwzb Adults aged 40-75 with LDL 70-189 mg/dL should have their 10 year ASCVD risk estimated with the ACC/AHA ASCVD risk es timator http://tools.acc.org/YEMVU-Dqov-Awjeaemk r/ Statin should be discussed if risk [...] Organization Address City/State/[place] [address] (ABNORMAL) Basic Metabolic Panel (non-fasting) (08/15/2018 8:04 AM EST) athologist Signature Glucose Lvl 116 65 - [address] [facility] mg/dL [facility] Comment: Diabetes: >=200 mg/dL plus symp toms BUN 21 (H) 10 - 20 mg/dL [facility] Creatinine 1.08 0.80 - 1.50 mg/dL [facility] Sodium 144 135 - 145 mmol/L [facility] Potassium 4.6 3.5 - 5.0 mmol/L [facility] Comment: Please note: ??Patients with WBC >100,00 0 may have falsely elevated Potassium levels. ??For accurate Potassium quantif ication in these patients send serum separator tube (gold top) for subsequent determinations. ??Contact the Clinical Chemistry Laboratory if there are any qu estions. Chloride 102 98 - 107 mmol/L [facility] CO2 27 22 - 31 mmol/L [facility] Anion Gap 15 5 - 15 mmol/L [facility] Calcium 9.0 8.5 - 10.5 mg/dL [facility] Estimated GFR 68 >=60 mL/min/1.73 m?? [facility] Comment: The eGFR was calculated using the CKD-EP I equation. As with all creatinine based estimates of kidney function, eGFR values calculated with the CKD-EPI equation are not accurate in patients wi th acute kidney failure, extremes of body mass or the acutely ill. http://[employer]/[facility] CITYnkf eGFR 79 >=60 mL/min/1.73 m?? [facility] Comment: The eGFR was calculated using the CKD-EP I equation. As with all creatinine based estimates of kidney function, eGFR values calculated with the CKD-EPI equation are not accurate in patients wi th acute kidney failure, extremes of body mass or the acutely ill. http://[employer]/DHMCnkf Specimen Anatomical Collection Method Collection Time Receive d Time (Source) Location / / Volume Laterality Blood specimen 08/15/2018 8:04 AM 019 8:20 (specimen) EST AM EST Resulting Agency Comment Spec In Lab Danette Maxwell APRN CHEMISTRY ORDERABLES Performing Organization Address City/[facility]/ZIP Code Phon e Number [address] (ABNORMAL) pro-Brain Natriuretic Peptide (08/15/2018 8:04 AM EST) P athologist Signature ProBNP 1,797 (H) <=125 [facility] pg[facility]mL [facility] Specimen Anatomical Collection Method Collection Time Receive d Time (Source) Location / / Volume Laterality Blood specimen 08/15/2018 8:04 AM 019 8:20 (specimen) EST AM EST Resulting Agency Comment Spec In Lab Danette Maxwell APRN CHEMISTRY ORDERABLES Performing Organization Address City/State/[place] [address] documented in this encounter Visit Diagnoses Diagnosis Chronic systolic heart failure Cardiomyopathy, ischemic Other specified forms of chronic ischemi c heart disease ASCVD (arteriosclerotic cardiovascular d isease) Unspecified cardiovascular disease Essential hypertension Unspecified essential hypertension MARIA VICTORIA on CPAP Obstructive sleep apnea (adult) (pediatr ic) documented in this encounter Care Teams Architectural Project Manager Relationship Specialty Start Date End Date Lovely Vicente MD PCP - General 04/16/[address] [place] [address] documented as of this encounter
--- OUTSIDE RECORDS SUMMARY | 2022-02-06 13:31 | XMS_ITS | Encounter Summary ---
:1945 Author Organization [facility] [place] [address] Care Team Providers Name Role Phone Lovely Vicente MD Primary Care Provider Reason for Visit Reason Comments Establish Care Atrial Fibrillation Congestive Heart Failure Cardiomyopathy Encounter Details Date Type Department Care Team Description 09/06/2019 [facility] Osvaldo STRANGE [address] [place], [place] CARDIOLOGY DEPT. [address] [place] [address] [phone] Social History Tobacco Use Types Packs/Day Years Used Date Former Smoker Cigarettes 3 5 Quit: 07/26/18 69 Smokeless Tobacco: Never Used Alcohol Use Standard Drinks/Week Comments No 0 (1 standard drink = 0.6 oz pure alcoho l) Sex Assigned at Date Recorded Not on file documented as of this encounter Last Filed Vital Signs Vital Sign Reading Time Taken Comments Blood Pressure 162/70 09/06/2019 2:15 PM EST Pulse 76 09/06/2019 2:15 PM EST Temperature - - Respiratory Rate - - Oxygen Saturation - - Inhaled Oxygen Concentration - - Weight 89.8 kg (198 lb) 09/06/2019 2:05 PM EST Height 172.7 cm (5' 8) 09/06/2019 2:05 PM EST Body Mass Index 30.11 09/06/2019 2:05 PM EST documented in this encounter Patient Instructions Patient InstructionsKrael Mcelroy MD - 09/06/2019 2:20 PM EST Images from the original note were not included. It was nice to see you in the Cardiac Electrophysiology Clinic today. We discussed the heart failure, the echo, the zio patch monitor You should continue with your medicines as before I made no changes to your medicines today For any questions, call my office: [phone] To access your health care information, go to the web at: [email or web address] (you will need to register) For educational materials: [email or web address] Karel TRAMMELL.[facility], Clinical Cardiac Electrophysiology, [facility], [facility] A Healthy Heart: After Your Visit Heart disease occurs when the vessels that supply oxygen-rich blood to your heart become narrow or blocked. A heart attack happens when blood flow is completely blocked. A high-fat diet, smoking, and other factors increase the risk of heart disease. Abnormal heart rhythms can occur in the presence and absence of other heart disease. You can do lots of things to keep your heart healthy. It may not be easy, but you can change your diet, exercise more, and quit smoking. These steps really work to lower your chance of heart disease. Follow-up care is a shelton part of your treatment and safety. Be sure to make and go to all appointments, and call your doctor if you are having problems. It???s also a good idea to know your test resultsand keep a list of the medicines you take. A heart-healthy lifestyle is important for everyone, not just for people with existing health problems. It can help you keep your heart and blood vessels healthy. If you already have heart or blood vessel problems, such as high cholesterol or high blood pressure, a healthy lifestyle can help you loweryour risk of a heart attack and stroke. If you have children, you can be their healthy role model. If your habits are healthy, your childrenare more likely to build those habits in their own lives. Don't smoke Everyone who uses tobacco would benefit from quitting. When you quit smoking--no matter how old you are--you will decrease your risk of heart attack, stroke, and many other health problems. For help with quitting smoking, see these topics: Your Care Instructions How can you care for yourself at home? Diet ?? Use less salt when you cook and eat. This helps lower your blood pressure. Taste food before salting. Add only a little salt when you think you need it. With time, your taste buds will adjust to less salt. ?? Eat fewer snack items, fast foods, canned soups, and other high-salt, high- fat, processed foods. ?? Read food labels and try to avoid saturated and trans fats. They increase your risk of heart disease by raising cholesterol levels. ?? Limit the amount of solid fat--butter, margarine, and shortening--you eat. Use olive, peanut, or canola oil when you cook. Bake, broil, and steam foods instead of frying them. ?? Eating fish can lower your risk for heart disease. Eat at least 2 servings of fish a week. [place], mackerel, mcfadden, sardines, and chunk light tuna are very good choices. These fish contain omega-3fatty acids. ?? Eat a variety of fruit and vegetables every day. Dark green, deep orange, red, or yellow fruits and vegetables are especially good for you. Examples include spinach, carrots, peaches, and berries. You may need to eat these in moderation if you are taking coumadin or warfarin ?? Foods high in fiber can reduce your cholesterol and provide important vitamins and minerals. High-fiber foods include whole-grain cereals and breads, oatmeal, beans, brown rice, citrus fruits, and apples. ?? Limit drinks and foods with added sugar. These include candy, desserts, and soda pop. Lifestyle changes ?? If your doctor recommends it, get more exercise. Walking is a good choice. Bit by bit, increase the amount you walk every day. Try for at least 30 minutes on most days of the week. You also may wantto swim, bike, or do other activities. ?? Do not smoke. If you need help quitting, talk to your doctor about stop- smoking programs and medicines. These can increase your chances of quitting for good. Quitting smoking may be the most important step you can take to protect your heart. It is never too late to quit. You will get health benefits right away. ?? Limit alcohol to 2 drinks a day for men and 1 drink a day for women. Too much alcohol can cause health problems. Medicines ?? Take your medicines exactly as prescribed. Call your doctor if you think you are having a problemwith your medicine. ?? If your doctor recommends aspirin, take the amount directed each day. Make sure you take aspirin and not another kind of pain reliever, such as acetaminophen (Tylenol). If you take ibuprofen (such as Advil or Motrin) for other problems, take aspirin at least 2 hours before taking ibuprofen. When should you call for help? Call 911 if you have symptoms of a heart attack. These may include: ?? You have chest pain or pressure. This may occur with: ?? Chest pain or pressure, or a strange feeling in the chest. ?? Sweating. ?? Shortness of breath. ?? Pain, pressure, or a strange feeling in the back, neck, jaw, or upper belly or in one or both shoulders or arms. ?? Lightheadedness or sudden weakness. ?? A fast or irregular heartbeat. After you call 911, the cylinder machine operator may tell you to chew 1 adult-strength or 2 to 4 low-dose aspirin. Wait for an ambulance. Do not try to drive yourself. Watch closely for changes in your health, and be sure to contact your doctor if: ?? Your symptoms are slowly getting worse. ?? You do not get better as expected. Where can you learn more? Visit our health information library at [email or web address]. You can also view health information on [employer], your personal patient account. Log in or sign up today. Enter F075 in the search box to learn more about A Healthy Heart: After Your Visit. ?? [phone] [employer] documented in this encounter Progress Notes Karel Mcelroy MD - 09/06/2019 2:20 PM EST Images from the original note were not included. Section of Cardiology/Cardiac Electrophysiology [facility] Clinical Cardiac Electrophysiology Consult Patient ID Don Fatima 1945 [id number] Don aFtima is referred to the EP clinic by Danette Maxwell APRN PhD Chief Complaint Dyspnea on exertion Ischemic cardiomyopathy History This is a 74 y.o. male following up/being seen in clinic for evaluation for ongoing anticoagulation. He has a Navbq5Wgym score of ~ 6-7. He has a history of STEMI in 2016, following which he ended up with CABG. He had atrial fibrillationwhile an inpatient and was commenced on amiodarone which was stopped about a month after he was discharged. Although his immediate LVEF during that admission was ~ 30% July of this year, it has improved to 40-45% with segmental wall motion abnormalities. A zio patch performed in June of last year reported no atrial fibrillation. 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 No chest pain, does get short of breath when it is cold. Can lie flat in bed. Sleeps about 5-6 hours at night. Does not snore anymore, uses CPAP. Not too somnolent. No palpitations. Chest fees tight at times. Problem List Patient Active Problem List Diagnosis ??? ASHD (arteriosclerotic heart disease) NSTEMI 3VCAD Ischemic Cardiomyopathy 07/08/2017 CABG ??? Cardiomyopathy, ischemic 07/05/2017 LVEF=29% 10/07/2017 LVEF=45% 08/15/2018 LVEF= 30-35% ??? Hypertension, accelerated, with systolic CHF, 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 Elevated HTN, poorly responsive to NTG Nipride initiated ??? STEMI (ST elevation myocardial infarction) ??? On amiodarone therapy CHINTAN Recommended amiodarone monitoring Date of most recent study LFTs Q6 months 04/18/2018 WNL Thyroid Function Tests 3 months from initiation then Q 6 months 04/18/2018 WNL Chest X Ray Yearly Yearly 08/19/2017 no acute processes PFT's with DLCO Baseline, then for unexplained dyspnea,CXR abnormality EKG Yearly Yearly 08/12/2017 NSR, QRS 102 ms Ophthalmalogic evaluation If visual symptoms develop ??? S/P CABG x 3 CABGx3 on 07/06/17 ??? Atheroembolism of foot, right ??? Delayed [...] Skin lesion of chest wall ??? Melanoma Review of Systems Review of Systems Constitution: Positive for malaise/fatigue. Cardiovascular: Positive for dyspnea on exertion. Meds Current Outpatient Medications Medication Sig Dispense Refill ??? atorvastatin (Lipitor) 40 mg Tablet Take 20 mg by mouth daily. ??? furosemide (Lasix) 20 mg Tablet Take 20 mg by mouth daily. ??? LANTUS SOLOSTAR U-100 INSULIN pen 21 Units. ??? ascorbic acid, Vitamin C, (VITAMIN C) 500 mg Tablet Take 500 mg by mouth daily. ??? ferrous sulfate 325 mg (65 mg iron) Tablet Take 325 mg by mouth daily (with breakfast). ??? TURMERIC ORAL Take 500 mg by [...] Take 500 mg by mouth daily. ??? ACCU-CHEK TERA PLUS TEST STRP Strip 2-3 times daily 100 each 1 ??? metFORMIN (GLUCOPHAGE) 850 mg Tablet Take 1 tablet by mouth 2 times daily (with meals). 60 tablet 12 ??? BD INSULIN PEN NEEDLE UF MINI 31 gauge x 3/16 Needle 1 each by Other route 4 times daily. 0 ??? warfarin (COUMADIN) 2.5 mg Tablet Take 1 tablet by mouth daily. (Patient taking differently: Take 2.5 mg by mouth daily. Variable dosing monitored by PCP) No current facility-administered medications for this visit. Social History Social History Socioeconomic History ??? Marital status: Spouse name: None ??? Number of children: None ??? Years of education: None ??? Highest education level: None Occupational History ??? None Social Needs ??? Financial resource strain: None ??? Food insecurity Worry: None Inability: None ??? Transportation needs Medical: None Non-medical: None Tobacco Use ??? Smoking status: Former Smoker Packs/day: 3.00 Years: 5.00 Pack years: 15.00 Types: Cigarettes Last attempt to quit: 07/26/1967 Years since quittin.1 ??? Smokeless tobacco: Never Used Substance and Sexual Activity ??? Alcohol use: No ??? Drug use: No ??? Sexual activity: Not Currently Partners: Female Lifestyle ??? Physical activity Days per week: None Minutes per session: None ??? Stress: None Relationships ??? Social connections Talks on phone: None Gets together: None Attends anglican service: None Active member of club or organization: None Attends meetings of clubs or organizations: None Relationship status: None ??? Intimate partner violence Fear of current or ex partner: None Emotionally abused: None Physically abused: None Forced sexual activity: None Other Topics Concern ??? Do You live alone? No ??? Tobacco in Home Not Asked Social History Narrative ??? None Family History No family history on file. Exam Most Recent Vitals: 09/06/19 1415 BP: 162/70 Pulse: 76 Physical Exam Constitutional: He is oriented to person, place, and time. He appears well-developed. Body mass index is 30.11 kg/m??. HENT: Mouth/Throat: No oropharyngeal exudate. Eyes: No scleral icterus. Neck: No thyromegaly present. Cardiovascular: Normal rate. Pulmonary/Chest: Effort normal. Abdominal: Soft. Musculoskeletal: General: No edema. Neurological: He is alert and oriented to person, place, and time. Skin: Skin is warm and dry. Psychiatric: He has a normal mood and affect. I have personally reviewed the ECG: sinus rhythm, 72 bpm, DC 140 ms, QRS 100 ms, QT 400 ms, no brugada, or pre-excitation, no Long QT I personally reviewed the Zio patch - the predominant rhythm was sinus rhythm. Minimum sinus rate 49bpm, maximum 122 bpm. There were 4 brief episodes of non sustained ventricular tachycardia There were a couple of episodes of AV block - 06/28/2019 - 556 - sinus rate slowing followed by a dropped beat 07/17/2019 - 350am - sinus rate slowing followed by a single dropped beat. Both of these episodes appear to represent autonomic changes Impression Don Fatima is seen in the EP clinic for evaluation of atrial fibrillation and cardiomyopathy. At least from the point of view of atrial fibrillation, he appears to have no clear symptoms suggestive of recurrent arrhythmias. In any event, he is on anticoagulation for a thromboembolic event, so would not discontinue his warfarin. Of note, he was on amiodarone for a long period of time after his C ABG, but does not appear to have had symptomatic AF since then, even after discontinuation of his amiodarone. His LVEF has improved > 35%, so he is not a candidate for ICD implant. Recommendations / Plan A) No changes to current medicines B) He knows to remain vigilant for arrhythmias, lighthheadedness, dizziness, syncope etc. C) No routine follow up planned in the EP clinic KAREL MCELROY MD Cardiac Electrophysiology [facility] T: [phone] F: [phone] 35 minutes of this 40 minute encounter were spent in counselling, as described above Cc: MD Danette Cr APRN PhD Janett Espino DPM documented in this encounter Plan of Treatment Upcoming Encounters Date Type Specialty Care Team Description 02/19/2022 Laboratory Appointment Lab 02/19/2022 Office Visit Cardiology Liz Poole PA [facility] Cardiology Dept [place], [place] [address] (Wo rk) 03/12/2022 Office Visit Cardiology Vitaliy Nobles MD [facility] CARDIOLOGY [place], [place] [address] (Wo rk) documented as of this encounter Procedures Procedure Name Priority Date/Time Associated Diagnosis Comme nts EKG 12-LEAD Routine 09/06/2019 2:15 PM Results f or this EST procedure are i n the results section . documented in this encounter Results EKG 12 Lead (09/06/2019 2:15 PM EST) Component Value Ref Range Test Analysis Performed Pathologis t Method Time At Signature Ventricular rate 72 BPM MUSE SYSTEM Atrial Rate 72 BPM MUSE SYSTEM P-R Interval 146 ms MUSE SYSTEM QRS Duration 98 ms MUSE SYSTEM Q-T Interval 408 ms MUSE SYSTEM QTC Calculated 446 ms MUSE SYSTEM (Bezet) Calculated P [place] 37 degrees MUSE SYSTEM Calculated R [place] -23 degrees MUSE SYSTEM Calculated T [place] 116 degrees MUSE SYSTEM INTERPRETATION Normal sinus rhythm MUSE SYSTEM Inferior infarct (cited on or before 25-JAN-2013) ST & T wave abnormality, consider anterolateral ischemia Abnormal ECG When compared with ECG of 19-AUG-2017 10:23, No significant change was found Confirmed by MD Castellon Daniel ([id number]) on 09/08/2019 10:22:4 7 AM Specimen Anatomical Collection Method Collection Time Receive d Time (Source) Location / / Volume Laterality 09/06/2019 2:15 PM 0 EST 10:22 AM EST Unknown ECG ORDERABLES Performing Organization Address City/State/ZIP Code Phon e Number MUSE SYSTEM documented in this encounter Visit Diagnoses Diagnosis Ischemic cardiomyopathy Other specified forms of chronic ischemi c heart disease documented in this encounter Care Teams Link Fabric Machine Operator Relationship Specialty Start Date End Date Lovely Vicente MD PCP - General 04/16/[address] [place] [address] documented as of this encounter
--- OUTSIDE RECORDS SUMMARY | 2022-02-06 13:31 | XMS_ITS | Encounter Summary ---
:1945 [place] [address] Care Team Providers Name Role Phone Lovely Vicente MD Primary Care Provider Encounter Details Date Type Department Care Team Description 08/15/2018 Laboratory Appointment Lab [address] [place] [address] Social History Tobacco Use Types Packs/Day [...] Office Visit Cardiology Liz Poole PA [facility] er Cardiology Dept [place], [place] [address] (Wo rk) 03/12/2022 Office Visit Cardiology Vitaliy Nobles MD [facility] CARDIOLOGY [place], [place] [address] (Wo rk) documented as of this encounter Procedures Procedure Name Priority Date/Time Associated Diagnosis Comme nts PROTHROMBIN TIME Routine 08/15/2018 8:04 AM Resul ts for this EST procedure are i n the results section. documented in this encounter Results (ABNORMAL) Prothrombin Time (08/15/2018 8:04 AM EST) P athologist Signature PT 24.0 (H) 9.4 - 12.5 [facility] LABORATORY INR 2.1 [facility] Comment: An INR <2.0 indicates [...] Volume Laterality Blood specimen Venous Draw / 08/15/2018 8:04 AM 2018 8:20 (specimen) Unknown EST AM EST Resulting Agency Comment Spec In Lab Lovely Vicente MD HEMATOLOGY ORDERABLES Performing Organization Address City/State/[place] [address] documented in this encounter Visit Diagnoses Not on filedocumented in this encounter Care Teams Cylinder Block Hole Reliner Relationship Specialty Start Date End Date Lovely Vicente MD PCP - General 04/16/[address] [place] [address] documented as of this encounter
--- OUTSIDE RECORDS SUMMARY | 2022-02-06 13:31 | XMS_ITS | Encounter Summary ---
:1945 Author Organization [place] [address] Care Team Providers Name Role Phone Lovely Vicente MD Primary Care Provider Reason for Referral Diagnostic Test (Routine) - Specialty Diagnoses / Procedures Referred By Contact Refer red To Contact Cardiology Diagnoses Chronic systolic heart failure Danette Maxwell APRN [facility] Non-Inv Card Lab Procedures Echocardiogram Transthoracic(Leb) [facility] [phone] [place] [address] Referral ID Status Reason Start Date Expiration Visits Visits Date Requested Authorized [id number] Specialty 08/15/2018 08/15/2018 1 1 Service Requested Reason for Visit Diagnostic Test (Routine) - Specialty Diagnoses / Procedures Referred By Contact Nawaf owen To Contact Cardiology Diagnoses Chronic systolic heart failure Danette Maxwell APRN [facility] Non-Inv Card Lab Procedures Echocardiogram Transthoracic(Leb) [facility] [place] [address] [place] [address] Referral ID Status Reason Start Date Expiration Visits Visits Date Requested Authorized [id number] Specialty 08/15/2018 08/15/2018 1 1 Service Requested Encounter Details Date Type Department Care Team Description 08/15/2018 Hospital Encounter Non-Invasive Danette Maxwell Chron ic systolic Cardiology Lab Barbara Gomes APRN heart failure [facility] [place] [address] [place] [phone] (Work) [phone] Social History Tobacco Use Types Packs/Day Years Used Date Former Smoker Cigarettes 3 5 Quit: 07/26/18 69 Smokeless Tobacco: Never Used Alcohol Use Standard Drinks/Week Comments No 0 (1 standard drink = 0.6 oz pure alcoho l) Sex Assigned at Date Recorded Not on file documented as of this encounter Medications at Time of Discharge Medication Sig Dispensed Refills Start Date End Date levothyroxine Take 1 tablet by mouth 102 [...] mg mouth as needed. Tablet Sustained Release insulin glargine Inject 15 Units 10 mL 12 08/16/201709/2019 Solution subcutaneously nightly. insulin lispro Inject 11 Units 10 mL 12 08/16/201709/06 (HUMALOG) Solution subcutaneously 3 times daily (with meals). melatonin 3 mg Tablet Take 2 tablets by 0 018 01/16/2019 mouth nightly. lisinopril Take 2.5 mg by mouth 0 [...] 09/14/2016 09/06/2019 40 mg Tablet every evening. ascorbic acid, vitamin Take 500 mg by mouth 0 01/16/2019 C, (VITAMIN C) 500 mg daily. winter Tablet only aspirin 81 mg EC Take 81 mg by mouth 0 01/16/2019 tablet daily. documented as of this encounter Plan of Treatment Upcoming Encounters Date Type Specialty Care Team Description 02/19/2022 Laboratory Appointment Lab 02/19/2022 Office Visit Cardiology Liz Poole PA [facility] Cardiology Dept [place], [place] [address] (Wo rk) 03/12/2022 Office Visit Cardiology Vitaliy Nobles MD [facility] CARDIOLOGY [place], [place] [address] (Wo rk) documented as of this encounter Procedures Procedure Name Priority Date/Time Associated Comments Diagnosis ECHOCARDIOGRAM COMPLETE Routine 08/15/2018 7:55 AM Chronic sys tolic Results for this [...] Mccollum ? (Age): 1945(73y) Med Rec#: ? [id number] ?Sex: ?M ? Site Loc: ? [facility] ?Ht / Wt: ??172(cm)/81(kg) Pt. Loc: ?Echo Lab ?BSA: ?1.94 Study Date: ?? 08/15/2018 ?Pt. Type: Outpatient Tape: ? Referring: MARY ELLEN Reading: Scott Ortega ([id number]) Dry Cell Assembly Machine Tender: Laura Sargent Diagnosis: *Chronic systolic (congestive) heart [...] E-wave Vmax ?1.2 ?m/sec ? MV deceleration swsj070.4 ? msec ? MV A-wave Vmax ?0.7 [...] ? Mid-Inferior ?Hypokinetic ? Mid-Inferoseptal ?Hypokinetic ? [place]-Septal ? Akinetic ? [place]-Anterior ? Hypokinetic ? [place]-Lateral ?Akinetic ? [place]-Inferior ? Hypokinetic ? [place]-Tip ?Akinetic ? This report has been electronically sign ed by: _ Scott Ortega M.D. ? 08/15/2018 08:17:26 Images reviewed and interpretation elvie wanda [facility] Cardiac Ultrasound Laboratory Procedure Note Scott Ortega MD - 08/15/2018Format ting of this note might be different from the original. Procedure: Transthoracic Echocardiogram Patient: NATALYA MCBRIDE(Age): [birth year]73y) Med Rec#: [id number] Sex: M Site Loc: [facility] Ht / Wt: 172(cm)/81(kg) Pt. Loc: Echo Lab BSA: 1.94 Study Date: 08/15/2018 Pt. Type: Outpati ent Tape: Referring: MARY ELLEN Reading: Scott Ortega ([id number]) Dry Cell Assembly Machine Tender: Laura Sargent Diagnosis: *Chronic systolic (congestive) heart [...] MV E-wave Vmax 1.2 m/sec MV deceleration eyfv245.4 msec MV A-wave Vmax 0.7 m/sec MV [...] Akinetic Mid-Posterolateral Akinetic Mid-Inferior Hypokinetic Mid-Inferoseptal Hypokinetic [place]-Septal Akinetic [place]-Anterior Hypokinetic [place]-Lateral Akinetic [place]-Inferior Hypokinetic [place]-Tip Akinetic This report has been electronically sign ed by: _ Scott Ortega M.D. 08/15/2018 08:17: 26 Images reviewed and interpretation verif ied [facility] Cardiac Ultrasound Laboratory Danette Maxwell APRN ECHO ORDERABLES Performing Organization Address City/State/ZIP Code Phon e Number [facility] documented in this encounter Visit Diagnoses Diagnosis Chronic systolic heart failure documented in this encounter Administered Medications Inactive Administered Medications - up to 3 most recent administrations Medication Order MAR Action Action Date Dose Rate Site perflutren lipid microspheres Given 08/15/2018 7:30 AM EST 1.5 m Ls (DEFINITY) injection 1.5 mL 1.5 mL, Intravenous, ONCE PRN, 1 dose, Starting on Wed08/15/18 at 0756, Until 08/15/18 at 0730, Other, for enhancement of sub-optimal echo images, Echo Lab (Intra-Procedure), Routine documented in this encounter Care Teams Information Technology Account Manager Relationship Specialty Start Date End Date Lovely Vicente MD PCP - General 04/16/[address] [place] [address] [address] [place] [address] documented as of this encounter
--- OUTSIDE RECORDS SUMMARY | 2022-02-06 13:31 | XMS_ITS | Encounter Summary ---
:1945 Author Organization [facility] [place] [address] Care Team Providers Name Role Phone Lovely Vicente MD Primary Care Provider Encounter Details Date Type Department Care Team Description 07/28/2019 Laboratory Appointment Lab 3L [facility] systolic [facility] [place] [address] Social History Tobacco Use Types Packs/Day Years [...] 02/19/2022 Office Visit Cardiology Liz Poole PA [facility] er Cardiology Dept [place], [place] [address] (Wo rk) 03/12/2022 Office Visit Cardiology Vitaliy Nobles MD [facility] ER CARDIOLOGY [place], [place] [address] (Wo rk) documented as of this encounter Procedures Procedure Name Priority Date/Time Associated Diagnosis Comme nts HC PROBNP STAT 07/28/2019 8:36 AM Chronic systolic Resul ts for this EST heart failure procedure are in the results section. HC VENIPUNCTURE STAT 07/28/2019 8:36 AM Chronic systolic Re sults for this EST heart failure procedure are in the results section. documented in this encounter Results (ABNORMAL) pro-Brain Natriuretic Peptide (07/28/2019 8:36 AM EST) P athologist Signature ProBNP 647 (H) <=125 pg/mL [facility] Specimen Anatomical Collection Method Collection Time Receive d Time (Source) Location / / Volume Laterality Blood specimen 07/28/2019 8:36 AM 020 8:46 (specimen) EST AM EST Resulting Agency Comment Spec In Lab Danette Maxwell APRN CHEMISTRY ORDERABLES Performing Organization Address City/State/ZIP Code Phon e Number [place] [phone] [address] (ABNORMAL) Basic Metabolic Panel (non-fasting) (07/28/2019 8:36 AM EST) P athologist Signature Glucose Lvl 153 65 - 199 [facility] mg/dL [facility] Comment: Diabetes: >=200 mg/dL plus symp toms BUN 22 (H) 10 - 20 mg/dL [facility] Creatinine 1.05 0.80 - 1.50 mg/dL [facility] Sodium 141 135 - 145 mmol/L [facility] Potassium 4.5 3.5 - 5.0 mmol/L [facility] Comment: Please note: ??Patients with WBC >100,00 0 may have falsely elevated Potassium levels. ??For accurate Potassium quantif ication in these patients send serum separator tube (gold top) for subsequent determinations. ??Contact the Clinical Chemistry Laboratory if there are any qu estions. Chloride 100 98 - 107 mmol/L [facility] CO2 29 22 - 31 mmol/L [facility] Anion Gap 12 5 - 15 mmol/L [facility] Calcium 9.3 8.5 - 10.5 mg/dL [facility] Estimated GFR 70 >=60 mL/min/1.73 m?? [facility] Comment: The eGFR was calculated using the CKD-EP I equation. As with all creatinine based estimates of kidney function, eGFR values calculated with the CKD-EPI equation are not accurate in patients wi th acute kidney failure, extremes of body mass or the acutely ill. http://[employer]/[facility] eGFR 81 >=60 mL/min/1.73 m?? [facility] Comment: The eGFR was calculated using the CKD-EP I equation. As with all creatinine based estimates of kidney function, eGFR values calculated with the CKD-EPI equation are not accurate in patients wi th acute kidney failure, extremes of body mass or the acutely ill. http://[employer]/[facility] Specimen Anatomical Collection Method Collection Time Receive d Time (Source) Location / / Volume Laterality Blood specimen 07/28/2019 8:36 AM 020 8:46 (specimen) EST AM EST Resulting Agency Comment Spec In Lab Danette Maxwell APRN CHEMISTRY ORDERABLES Performing Organization Address City/State/[place] [address] documented in this encounter Visit Diagnoses Diagnosis Chronic systolic heart failure documented in this encounter Care Teams Investigations Chief Relationship Specialty Start Date End Date Lovely Vicente MD PCP - General 04/16/[address] [place] [address] documented as of this encounter
--- OUTSIDE RECORDS SUMMARY | 2022-02-06 13:31 | XMS_ITS | Encounter Summary ---
:1945 Author Organization [place] [address] Care Team Providers Name Role Phone Lovely Vicente MD Primary Care Provider Reason for Visit Reason Onset Date Comments Follow-up 07/13/2018 amiodarone discontin ued Encounter Details Date Type Department Care Team Description 07/13/2018 Telephone Cardiology at [facility] Martha Comer, Follow-up (amiodarone [facility] RN discontin ued) [place] [address] Social History Tobacco Use Types Packs/Day Years Used Date Former Smoker Cigarettes 3 5 Quit: 07/26/18 69 Smokeless Tobacco: Never Used Alcohol Use Standard Drinks/Week Comments No 0 (1 standard drink = 0.6 oz pure alcoho l) Sex Assigned at Date Recorded Not on file documented as of this encounter Miscellaneous Notes Telephone Encounter - Martha Comer, RN - 07/13/2018 8:57 AM EST Per RELEASE ENGINEER Hans call placed to the home number for the pt. confirmed that the pt is still taking the amiodarone. Pt is to stop the amiodarone. Pt taking it for post op a-fib, therapy was supposed to be for 30 days. Message given to his . She will give him the message and will have him call with any questions. Call placed to the [facility] pharmacy in [place] to discontinue it there as well. Med list updated. documented in this encounter Plan of Treatment Upcoming Encounters Date Type Specialty Care Team Description 02/19/2022 Laboratory Appointment Lab 02/19/2022 Office Visit Cardiology Liz Poole PA [facility] er Cardiology Dept [place], [place] [address] (Wo rk) 03/12/2022 Office Visit Cardiology Vitaliy Nobles MD [facility] ER CARDIOLOGY [place], [place] [address] (Wo rk) documented as of this encounter Visit Diagnoses Not on filedocumented in this encounter Care Teams Field Sales Representative Relationship Specialty Start Date End Date Lovely Vicente MD PCP - General 04/16/[address] [place] [address] documented as of this encounter
--- OUTSIDE RECORDS SUMMARY | 2022-02-06 13:32 | XMS_ITS | Encounter Summary ---
:1945 Author Organization [facility] [place] [address] Care Team Providers Name Role Phone Lovely Vicente MD Primary Care Provider Reason for Visit Reason Onset Date Comments Other 11/11/2017 Please call [facility] Encounter Details Date Type Department Care Team Description 11/11/2017 Telephone Cardiology at [facility] Danette Maxwell, Other (Please call [facility] WOOD MILLING MACHINE TENDER [facility] ) [place] [address] CARDIOLOGY [place], [place] [address] (Wo rk) Social History Tobacco Use Types Packs/Day Years Used Date Former Smoker Cigarettes 3 5 Quit: 07/26/18 69 Smokeless Tobacco: Never Used Alcohol Use Standard Drinks/Week Comments No 0 (1 standard drink = 0.6 oz pure alcoho l) Sex Assigned at Date Recorded Not on file documented as of this encounter Miscellaneous Notes Telephone Encounter - Denice Bronson - 11/12/2017 9:06 AM EDT Danette called Mr. Fatima yesterday. Denice Telephone Encounter - Denice Bronson - 11/11/2017 9:16 AM EDT Georges Samaniego call Mr. Fatima. He would not tell me what was going on, he only would say it is personal and needs to speak to you RANDELL. Thank you, Denice documented in this encounter Plan of Treatment Upcoming Encounters Date Type Specialty Care Team Description 02/19/2022 Laboratory Appointment Lab 02/19/2022 Office Visit Cardiology Liz Poole PA [facility] Dr Cardiology Dept [place], [place] [address] (Wo rk) 03/12/2022 Office Visit Cardiology Vitaliy Nobles MD [facility] CARDIOLOGY [place], [place] [address] (Wo rk) documented as of this encounter Visit Diagnoses Not on filedocumented in this encounter Care Teams Dough Puncher Relationship Specialty Start Date End Date Lovely Vicente MD PCP - General 04/16/15 [facility] [address] [place] [address] documented as of this encounter
--- OUTSIDE RECORDS SUMMARY | 2022-02-06 13:32 | XMS_ITS | Encounter Summary ---
:1945 Author Organization [facility] [place] [address] Care Team Providers Name Role Phone Lovely Vicente MD Primary Care Provider Encounter Details Date Type Department Care Team Description 08/19/2017 Office Visit Vascular Surgery at [place], PAD (peripheral artery [facility] ATG ARCHITECT disease) [facility] [address] [place], [place] VASCULAR SURGERY [address] [place] [address] [phone] Social History Tobacco Use Types Packs/Day Years Used Date Former Smoker Cigarettes 3 5 Quit: 07/26/18 69 Smokeless Tobacco: Never Used Alcohol Use Standard Drinks/Week Comments No 0 (1 standard drink = 0.6 oz pure alcoho l) Sex Assigned at Date Recorded Not on file documented as of this encounter Progress Notes [place], RN - 08/19/2017 11:15 AM EST Images from the original note were not included. Pt's right foot amputation wound. Pt seen in clinic today from rehab. Pt is doing well overall, close to d/c to home, waiting on home VAC approval. Wound vac removed in clinic and ian-wound skin is mascerated and soggy. Dr. Smith was sent a picture and consulted via phone and we agreed on a vac holiday. Saline dampened gauze applied to wound base, dry gauze covered and taped to be changed BID. Small mepilex border applied to rightposterior leg wound, to be changed every 2 days. has been given instructions and supplies for both dressings and VNA should re-apply vac dressing with first scheduled home visit. documented in this encounter Plan of Treatment Upcoming Encounters Date Type Specialty Care Team Description 02/19/2022 Laboratory Appointment Lab 02/19/2022 Office Visit Cardiology Liz Poole PA [facility] [place], [place] [address] (Wo rk) 03/12/2022 Office Visit Cardiology Vitaliy Nobles MD [facility] CARDIOLOGY [place], [place] [address] (Wo rk) documented as of this encounter Visit Diagnoses Diagnosis PAD (peripheral artery disease) Peripheral vascular disease, unspecified documented in this encounter Care Teams Rn Progressive Care Unit Relationship Specialty Start Date End Date Lovely Vicente MD PCP - General 04/16/[address] [place] [address] documented as of this encounter
--- OUTSIDE RECORDS SUMMARY | 2022-02-06 13:32 | XMS_ITS | Encounter Summary ---
:1945 [place] [address] Care Team Providers Name Role Phone Lovely Vicente MD Primary Care Provider Encounter Details Date Type Department Care Team Description 11/29/2017 Hospital Encounter Radiology Library at Estefany Maxwell Pain [facility] 3RD MATE [facility] [place] [address] CARDIOLOGY [phone] [place], [place] [address] (Wo rk) Social History Tobacco [...] mg mouth as needed. Tablet Sustained Release gabapentin (NEURONTIN) Take 300 mg by mouth 0 08/15/2018 100 mg Capsule daily. AMIOdarone (CORDARONE; Take 1 tablet by mouth 0 0 10/08/2017 07/13/2018 PACERONE) 200 mg daily. Tablet insulin glargine Inject 15 Units 10 mL 12 08/16/201709/2019 Solution subcutaneously nightly. insulin lispro Inject 11 Units 10 mL 12 08/16/201709/06 (HUMALOG) Solution subcutaneously 3 times daily (with meals). polyethylene glycol Take 17 g by mouth 14 each 0 08/16/19 18 08/15/2018 (MIRALAX) 17 gram daily as needed. Powder in Packet melatonin 3 mg Tablet Take 2 tablets by 0 018 01/16/2019 mouth nightly. HYDROmorphone Take 1-2 tablets by 30 tablet 0 08/16/2017 (DILAUDID) 2 mg Tablet mouth every 3 hours as needed for Pain (2mg for mild - moderate pain 1-6 OR 4mg for severe pain 7-10). LORazepam (ATIVAN) 0.5 Take 1 tablet by mouth 30 tablet 0 0 08/16/2017 01/06/2018 mg Tablet every 6 hours as needed. lisinopril Take 2.5 mg by mouth 0 02/24 (PRINIVIL;ZESTRIL) 2.5 daily. mg Tablet furosemide (LASIX) 20 Take 2 tablets by 60 tablet 3 018 09/06/2019 mg Tablet mouth daily. clobetasol (TEMOVATE) Apply 1 Application 1 06/2009/06/2019 0.05 % Solution topically 2 times daily. warfarin (COUMADIN) Take 1 tablet by mouth 0 06/2612/12/2021 2.5 mg Tablet daily. acetaminophen Take 2 tablets by 30 tablet 1 07/14/201712/24 (TYLENOL) 500 mg mouth every 6 hours as Tablet needed for Pain. atorvastatin (LIPITOR) Take 1 tablet by mouth 90 tablet 3 1 09/14/2016 09/06/2019 40 mg Tablet every evening. ascorbic acid, vitamin Take 500 mg by mouth 0 01/16/2019 C, (VITAMIN C) 500 mg daily. winter Tablet only turmeric root extract Take 500 mg by mouth 2 0 04/18/2018 500 mg Capsule times daily. fish oil-omega-3 fatty Take 2 g by mouth 0 04/18/2018 acids 1,000 mg Capsule daily. aspirin 81 mg EC Take 81 mg by mouth 0 01/16/2019 tablet daily. documented as of this encounter Plan of Treatment Upcoming Encounters Date Type Specialty Care Team Description 02/19/2022 Laboratory Appointment Lab 02/19/2022 Office Visit Cardiology Liz Poole PA [facility] Cardiology Dept [place], [place] [address] (Wo rk) 03/12/2022 Office Visit Cardiology Vitaliy Nobles MD [facility] CARDIOLOGY [place], [place] [address] (Wo rk) documented as of this encounter Procedures Procedure Name Priority Date/Time Associated Diagnosis Comme nts FILM LIBRARY Routine 11/29/2017 12:00 AM Pain Results for this STORAGE ONLY CT EDT procedure ar e in CHEST the results section. documented in this encounter Results Film Library- Storage Only CT Chest (11/29/2017 12:00 AM EDT) Specimen (Source) Anatomical Location Collection Method / Collectio n Time Received Time / Laterality Volume Narrative RAD - 12/28/2017 11:07 AM EDT This exam is for storage only and is aut o-finalizing. Danette Maxwell APRN IMMarc FILM LIBRARY ORDERABLES Performing Organization Address City/State/ZIP Code Phon e Number [place], [place] documented in this encounter Visit Diagnoses Diagnosis Pain Generalized pain documented in this encounter Care Teams Coil Assembler Relationship Specialty Start Date End Date Lovely Vicente MD PCP - General 04/16/[address] [place] [address] documented as of this encounter
--- OUTSIDE RECORDS SUMMARY | 2022-02-06 13:32 | XMS_ITS | Encounter Summary ---
:1945 Author Organization [facility] [place] [address] Care Team Providers Name Role Phone Loevly Vicente MD Primary Care Provider Encounter Details Date Type Department Care Team Description 08/19/2017 Hospital Encounter XRay at [facility] Martha Teague, S/P CABG x [address] [facility] [place] [address] [place] [address] RD [phone] GENERAL INTERNAL MEDICINE [place], [place] [address] (Wo rk) Social History Tobacco Use Types [...] Sig Dispensed Refills Start Date End Date Magnesium Oxide 500 mg Take 500 mg [...] gauge x 4 times daily. 10/08 Needle amoxicillin-clavulanat Take 1 tablet by mouth 20 tablet 0 0 08/16/2017 08/30/2017 e (AUGMENTIN) 875-125 2 times daily for 14 mg Tablet days. insulin glargine Inject 15 Units 10 mL 12 08/16/201709/2019 Solution subcutaneously nightly. insulin lispro Inject 11 Units 10 mL 12 08/16/201709/06 (HUMALOG) Solution subcutaneously 3 times daily (with meals). lidocaine (LIDODERM) 5 Apply 1 patch onto the 30 patch 0 0 08/16/2017 08/26/2017 % Adhesive Patch, skin daily. (leave on Medicated for 12 hours and remove for 12 hours) polyethylene glycol Take 17 g by mouth 14 each 0 08/16/19 18 08/15/2018 (MIRALAX) 17 gram daily as needed. Powder in Packet senna (SENOKOT) 8.6 mg Take 2 tablets by 60 tablet 11 201710/07/2017 Tablet mouth 2 times daily as needed for Constipation. melatonin 3 mg Tablet Take 2 tablets [...] 6 hours as Tablet needed for Pain. AMIOdarone (PACERONE) Take 1 tablet by mouth 30 tablet 0 10/08/2017 400 mg Tablet daily. atorvastatin (LIPITOR) Take 1 tablet by mouth 90 tablet 3 1 09/14/2016 09/06/2019 40 mg Tablet every evening. meTOPROLOL tartrate Take 1 tablet by mouth 180 tablet 3 06/2608/26/2017 (LOPRESSOR) 25 mg 2 times daily. Tablet levothyroxine Take 1 tablet by mouth 90 tablet 3 12/24/2016 09/08/2017 (SYNTHROID) 175 mcg daily. Tablet ascorbic acid, vitamin Take 500 mg by mouth 0 01/16/2019 C, (VITAMIN C) 500 mg daily. Winter months Tablet only turmeric root extract Take 500 [...] Poole PA [facility] Cardiology Dept [place], [place] [address] (Wo rk) 03/12/2022 Office Visit Cardiology Vitaliy Nobles MD [facility] CARDIOLOGY [place], [place] [address] (Wo rk) documented as of this encounter Procedures Procedure Name Priority Date/Time Associated Diagnosis Comme nts XR CHEST PA AND Routine 08/19/2017 9:32 AM S/P CABG x 3 Result s for this LATERAL EST procedure are i n the results section. documented in this encounter Results XR Chest PA & Lateral (Generic) (08/19/2017 9:32 AM EST) Anatomical Region Laterality Modality Chest N/A Digital Radiography Specimen (Source) Anatomical Location Collection Method / Collectio n Time Received Time / Laterality Volume Impressions 08/19/2017 10:30 AM EST No acute cardiopulmonary abnormality. I have personally reviewed the image(s) and the residents interpretation and agree with the findings, Michelle Monaco at 08/19/2017 10:30 AM Narrative 08/19/2017 10:30 AM EST EXAMINATION: XR CHEST PA AND LATERAL (GENERIC) CLINICAL HISTORY: CABG x 3 TECHNIQUE: PA and lateral views of the chest COMPARISON: Radiograph 08/04/2017 FINDINGS: The lungs are clear. No pleural effusion or pneumothorax. Cardiomediastinal silhouette, moris, and pulmonary vasculat ure are unchanged. Unchanged sternotomy wires and mid sternal fracture. Procedure Note Michelle Garnett MD - 2017 EXAMINATION: XR CHEST PA AND LATERAL (GE NERIC) CLINICAL HISTORY: CABG x 3 TECHNIQUE: PA and lateral views of the chest COMPARISON: Radiograph 08/04/2017 FINDINGS: The lungs are clear. No pleural effusion or pneumothorax. Cardiomediastinal silhouette, moris, and pulmonary vasculat ure are unchanged. Unchanged sternotomy wires and mid sternal fracture. IMPRESSION No acute cardiopulmonary abnormality. I have personally reviewed the image(s) and the residents interpretation and agree with the findings, Michelle Monaco at 08/19/2017 10:30 AM Martha S Ho FARM MANAGEMENT SUPERVISOR IMG DX ORDERABLES documented in this encounter Visit Diagnoses Diagnosis S/P CABG x 3 Postsurgical aortocoronary bypass status documented in this encounter Care Teams Animal Husbandman Relationship Specialty Start Date End Date Lovely Vicente MD PCP - General 04/16/[address] [place] [address] documented as of this encounter
--- OUTSIDE RECORDS SUMMARY | 2022-02-06 13:32 | XMS_ITS | Encounter Summary ---
:1945 Author Organization [facility] [place] [address] Care Team Providers Name Role Phone Lovely Vicente MD Primary Care Provider Encounter Details Date Type Department Care Team Description 11/29/2017 Laboratory Lab 3L Barbara Wiseman systoli c congestive heart failure; Appointment [facility] ASCVD (ar teriosclerotic cardiovascular disease); Hospital Cardiomyopathy, [place] [address] Social History Tobacco Use Types Packs/Day Years [...] 02/19/2022 Office Visit Cardiology Liz Poole PA [facility] er Cardiology Dept [place], [place] [address] (Wo rk) 03/12/2022 Office Visit Cardiology Vitaliy Nobles MD [facility] ER CARDIOLOGY [place], [place] [address] (Wo rk) documented as of this encounter Procedures Procedure Name Priority Date/Time Associated Diagnosis Comme nts PROTHROMBIN TIME Routine 11/29/2017 8:57 Results for this AM EDT procedure are i n the results section. PRO-BRAIN STAT 11/29/2017 8:22 Chronic systolic Results for this NATRIURETIC PEPTIDE AM EDT congestive heart proc edure are in failure the results ASCVD section. (arteriosclerotic cardiovascular disease) Cardiomyopathy, ischemic BASIC METABOLIC STAT 11/29/2017 8:22 Chronic systolic Resul ts for this PANEL (NON-FASTING) AM EDT congestive heart proc edure are in failure the results ASCVD section. (arteriosclerotic cardiovascular disease) Cardiomyopathy, ischemic LAVENDER TUBE HOLD Routine 11/29/2017 8:14 Result s for this AM EDT procedure are i n the results section. documented in this encounter Results (ABNORMAL) Prothrombin Time (11/29/2017 8:57 AM EDT) athologist Signature PT 23.0 (H) 9.4 - 12.5 [facility] LABORATORY INR 2.1 [facility]OR[facility] Comment: An INR <2.0 indicates [...] Volume Laterality Blood specimen Venous Draw / 11/29/2017 8:57 AM 2017 9:06 (specimen) Unknown EDT AM EDT Resulting Agency Comment Spec In Lab Lovely Vicente MD HEMATOLOGY ORDERABLES Performing Organization Address City/State/[place] [address] (ABNORMAL) Basic Metabolic Panel (non-fasting) (11/29/2017 8:22 AM EDT) athologist Signature Glucose Lvl 217 (H) 65 - 199 [facility] mg/dL [facility] Comment: Diabetes: >=200 mg/dL plus symp toms BUN 26 (H) 10 - 20 mg/dL [facility] Creatinine 0.96 0.80 - 1.50 mg/dL [facility] Sodium 137 135 - 145 mmol/L [facility] Potassium 4.1 3.5 - 5.0 mmol/L [facility] Comment: Please note: ??Patients with WBC >100,00 0 may have falsely elevated Potassium levels. ??For accurate Potassium quantif ication in these patients send serum separator tube (gold top) for subsequent determinations. ??Contact the Clinical Chemistry Laboratory if there are any qu estions. Chloride 97 (L) 98 - 107 mmol/L [facility] CO2 23 22 - 31 mmol/L [facility] Anion Gap 17 (H) 5 - 15 mmol/L [facility] Calcium 8.5 8.5 - 10.5 mg/dL [facility] Estimated GFR >60 >=60 [facility] Comment: The reported eGFR should be multiplied b y 1.2 for patients. The MDRD is not an appropriate measure o f renal function for patients with body mass extremes or in patients with acute kidney failure. http://[employer]/DHnkdep http://[employer]/DHnkf Specimen Anatomical Collection Method Collection Time Receive d Time (Source) Location / / Volume Laterality Blood specimen 11/29/2017 8:22 AM 018 8:29 (specimen) EDT AM EDT Resulting Agency Comment Spec In Lab Danette Maxwell APRN CHEMISTRY ORDERABLES Performing Organization Address City/State/[place] [address] (ABNORMAL) pro-Brain Natriuretic Peptide (11/29/2017 8:22 AM EDT) P athologist Signature ProBNP 1,769 (H) <=125 [facility] pg/mL [facility] LABOR[facility]ORY Specimen Anatomical Collection Method Collection Time Receive d Time (Source) Location / / Volume Laterality Blood specimen 11/29/2017 8:22 AM 018 8:29 (specimen) EDT AM EDT Resulting Agency Comment Spec In Lab Danette Maxwell APRN CHEMISTRY ORDERABLES Performing Organization Address City/State/ZIP Code Phon e Number [address] Lavender Tube HOLD (11/29/2017 8:14 AM EDT) [facility] gist Method Time Signature Lavender Hold Sample in [facility] lab. [facility]OR[facility] Specimen Anatomical Collection Method Collection Time Receive d Time (Source) Location / / Volume Laterality Blood specimen No Charge / 11/29/2017 8:14 AM 018 8:29 (specimen) Unknown EDT AM EDT Lovely Vicente MD HEMATOLOGY ORDERABLES Performing Organization Address City/[facility]/ZIP [place] [address] documented in this encounter Visit Diagnoses Diagnosis Chronic systolic congestive heart failur e Chronic systolic heart failure ASCVD (arteriosclerotic cardiovascular d isease) Unspecified cardiovascular disease Cardiomyopathy, ischemic Other specified forms of chronic ischemi c heart disease documented in this encounter Care Teams Lease Attendant Relationship Specialty Start Date End Date Lovely Vicente MD PCP - General 04/16/15 [address] [place] [address] documented as of this encounter
--- OUTSIDE RECORDS SUMMARY | 2022-02-06 13:32 | XMS_ITS | Encounter Summary ---
:1945 Author Organization [place] [address] Care Team Providers Name Role Phone Lovely Vicente MD Primary Care Provider Encounter Details Date Type Department Care Team Description 08/30/2017 [facility] [address] [place] VASCULAR SURGERY [address] [place] [address] [phone] Social History Tobacco Use Types Packs/Day Years Used Date Former Smoker Cigarettes 3 5 Quit: 07/26/18 69 Smokeless Tobacco: Never Used Alcohol Use Standard Drinks/Week Comments No 0 (1 standard drink = 0.6 oz pure alcoho l) Sex Assigned at Date Recorded Not on file documented as of this encounter Last Filed Vital Signs Vital Sign Reading Time Taken Comments Blood Pressure 137/64 08/30/2017 2:16 PM EST Pulse 84 08/30/2017 2:16 PM EST Temperature 36.9 ??C (98.4 ??F) 08/30/2017 2:16 PM EST Respiratory Rate 20 08/30/2017 2:16 PM EST Oxygen Saturation 99% 08/30/2017 2:16 PM EST room ai r Inhaled Oxygen Concentration - - Weight 81.9 kg (180 lb 8 oz) 08/30/2017 2:16 PM EST Height 172.7 cm (5' 8) 08/30/2017 2:16 PM EST Body Mass Index 27.44 08/30/2017 2:16 PM EST documented in this encounter Patient Instructions Patient InstructionsYonathan Smith MD - 08/30/2017 2:00 PM EST Call if any questions documented in this encounter Progress Notes Yonathan Smith MD - 08/30/2017 2:00 PM EST [facility] staff: Patient returns. He is doing well with the VAC on the forefoot. I removed the VAC and debrided a small amount of fibrinous tissue. The wound is started to contract nicely. Assessment: Recovering easily well following embolic event to the right forefoot. Continue VAC changes Wednesday, Wednesday, Wednesday. It was change in clinic today. He will follow-up at his request on September 07. I will ask that his visiting nurse check in with him and his family tomorrow, August 31. Routine warnings were administered. All questions answered. Thank you for sending him in consultation. documented in this encounter Plan of Treatment Upcoming Encounters Date Type Specialty Care Team Description 02/19/2022 Laboratory Appointment Lab 02/19/2022 Office Visit Cardiology Liz Poole PA [facility] er Cardiology Dept [place], [place] [address] (Wo rk) 03/12/2022 Office Visit Cardiology Vitaliy Nobles MD [facility] ER CARDIOLOGY [place], [place] [address] (Wo rk) documented as of this encounter Visit Diagnoses Diagnosis Critical lower limb ischemia Unspecified circulatory system disorder documented in this encounter Care Teams Head Of Ict Relationship Specialty Start Date End Date Lovely Vicente MD PCP - General 04/16/[address] [place] [address] documented as of this encounter
--- OUTSIDE RECORDS SUMMARY | 2022-02-06 13:32 | XMS_ITS | Encounter Summary ---
:1945 Author Organization [facility] [place] [address] Care Team Providers Name Role Phone Lovely Vicente MD Primary Care Provider Encounter Details Date Type Department Care Team Description 09/07/2017 Office Visit [facility]ocrinology at [facility] Maria Ines Stallings of [facility] [place] [address] [place] [address] ENDOCRINOLOGY DEPT [place], [place] [address] Social History Tobacco Use Types Packs/Day Years Used Date Former Smoker Cigarettes 3 5 Quit: 07/26/18 69 Smokeless Tobacco: Never Used Alcohol Use Standard Drinks/Week Comments No 0 (1 standard drink = 0.6 oz pure alcoho l) Sex Assigned at Date Recorded Not on file documented as of this encounter Progress Notes Luz Prescott MD - 09/07/2017 4:00 PM EST Patient needed to leave before he could be seen for his appointment. documented in this encounter Plan of Treatment Upcoming Encounters Date Type Specialty Care Team Description 02/19/2022 Laboratory Appointment Lab 02/19/2022 Office Visit Cardiology Liz Poole PA [facility] Cardiology Dept [place], [place] [address] (Wo rk) 03/12/2022 Office Visit Cardiology Vitaliy Nobles MD [facility] ER CARDIOLOGY [place], [place] [address] (Wo rk) documented as of this encounter Visit Diagnoses Diagnosis Hx of papillary thyroid carcinoma Personal history of malignant neoplasm o f thyroid documented in this encounter Care Teams [employer] Consultant Relationship Specialty Start Date End Date Lovely Vicente MD PCP - General 04/16/[address] [place] [address] documented as of this encounter
--- OUTSIDE RECORDS SUMMARY | 2022-02-06 13:32 | XMS_ITS | Encounter Summary ---
:1945 Author Organization [facility] [place] [address] Care Team Providers Name Role Phone Lovely Vicente MD Primary Care Provider Encounter Details Date Type Department Care Team Description 09/16/2017 Hospital [place] [address] Social History Tobacco Use Types Packs/Day [...] gauge x 4 times daily. 10/08 Needle lidocaine (XYLOCAINE) Infuse 1-2 mL into VAC 20 mL 1 10/07/2017 10 mg/mL (1 %) tubing prior to VAC Solution dressing removal to assist with pain control with dressing change insulin glargine Inject 15 Units 10 mL [...] Visit Cardiology Liz Poole PA [facility] er Cardiology Dept [place], [place] [address] (Wo rk) 03/12/2022 Office Visit Cardiology Vitaliy Nobles MD [facility] ER CARDIOLOGY [place], [place] [address] (Wo rk) documented as of this encounter Procedures Procedure Name Priority Date/Time Associated Diagnosis Comme [facility] SURGICAL PATHOLOGY Routine 09/16/2017 7:28 AM Res ults for this REPORT EST procedure are i n the results section. documented in this encounter Results Surgical Pathology Report (09/16/2017 7:28 AM EST) Component Value Ref Test Analysis Performed At [facility] Range Method Time Signature Surgical [id number] ? Location: [facility] Pathology RYAN Report The signing pathologist has (i) examined the relevant preparation(s) for the [facility] specimen(s) and (ii) rendered or confirmed the diagnosis(es) . HOSPITAL LABORATORY . ?Surgic al Pathology DIAGNOSIS A - Bone and soft tissue, right foot, biopsy: ?Granulation with fibrinopurulent crust, scar and chronic changes, with ?no evidence of involvement of underlying bone. Electronically signed by: ??Manjit STRANGE, Henrique Flower Verified: ??09/24/2017 ?Pathologist Performed at: ??-[facility] Dept. of Pathology, [place], [place] CLINICAL INFORMATION Specimen Submitted: A - Bone + soft tissue, right foot Clinical History: Status post arterial embolism one month ago. Clinical Diagnosis: Possible osteomyelitis. Referring Identifier: ??[id number] SPECIMEN PROCESSING A - ??Labeled/Fixative: Bone and soft tissue right foot, for kassi. Quantity/Size: Multiple fragments, ranging from 0.9-5.0 cm. Tissue Description: Fragment ed portions of skin, bone and soft tissue to include portions of recognizable toes resected at the metatarsal ph alangeal joint Lesion: There is no discrete lesion the recognizable toes identified. The soft tissue displays areas of romeo-yellow discoloration. Bone: Section a portions of bone reveal unremarkable, homogeneous yellow-cordova cut surfaces. Sections/Processing: (1-3) r epresentative sections of the soft tissue; (4) separately received bone. Blocks submitted for decalcification: ??(4 ) ?? . (R4) ??ejr Specimen (Source) Anatomical Collection Method Collection Time Re ceived Time Location / / Volume Laterality 09/16/2017 7:28 AM EST Resulting Agency Comment Spec In Lab / WKS Janett Espino DPM PATHOLOGY/CYTOLOGY ORDERABLE S Performing Organization Address City/State/ZIP Code Phon e Number [place], [place] [id number] [place] [address] documented in this encounter Visit Diagnoses Not on filedocumented in this encounter Care Teams Strategic Debriefing Officer Relationship Specialty Start Date End Date Lovely Vicente MD PCP - General 04/16/[address] [place] [address] documented as of this encounter
--- OUTSIDE RECORDS SUMMARY | 2022-02-06 13:32 | XMS_ITS | Encounter Summary ---
:1945 Author Organization [place] [address] Care Team Providers Name Role Phone Lovely Vicente MD Primary Care Provider Encounter Details Date Type Department Care Team Description 11/29/2017 Hospital Encounter Vascular Lab at [facility] Walter PAD (peripheral [facility], RVT artery [facility] [place] [id number] Social History Tobacco Use Types Packs/Day Years [...] 02/19/2022 Office Visit Cardiology Liz Poole PA [facility] Cardiology Dept [place], [place] [address] (Wo rk) 03/12/2022 Office Visit Cardiology Vitaliy Nobles MD [facility] CARDIOLOGY [place], [place] [address] (Wo rk) documented as of this encounter Procedures Procedure Name Priority Date/Time Associated Diagnosis Comme nts ARTERIAL DUPLEX LEG Routine 11/29/2017 10:32 AM PAD (periphera l Results for this UNILA EDT artery disease) procedure ar e in the results section. documented in this encounter Results Arterial Duplex Leg, Unil (11/29/2017 10:32 AM EDT) Component Value Ref Test Analysis Performed At [facility] Range Method Time Signature VB Text Department: Vascular Surgery Lab [facility]AS[facility] Report Patient: [id number] (DON HOANG) CPT: 30053 ICD10: I72.4;I73.9 Referring Physician: DANETTE MAXWELL ?? Phone: Indications: s/p right toe amp, left groin acces s and GSV harvest, large lump at groin/proximal medial thigh, ? PSA/hematoma ICD10 Diagnosis Code: I72.4, I73.9 Findings: Left ?PSV ( cm/s) ??EDV ?? Common Femoral Artery, Proximal ?113 ?0 ?? Profunda Femoris Artery, Proximal ? 54 ? 0 ?? Superficial Femoral Artery, Proximal ?79 ?0 ?? Interpretation: LEFT: A pseudoaneurysm (PSA) with active flow or iginating from the mid/distal common femoral artery was vi sualized measuring approximately 2.4 x 0.8 x 1.5 cm. The neck of the PSA measures approximately 0.2 cm. An avascular hematoma proximal to the PS A was visualized measuring 4.0 x 1.9 x 1.8 cm. An avascular echolucent (cystic) mass al luis the medial proximal thigh incision was visualized measuring 4.6 x 2.5 x 3.1 cm, it does not communicate with major arteries or veins. Patent common femoral, superficial femoral and p rofunda femoris arteries with normal triphasic Doppler waveforms. Patent common femoral vein and proximal thigh femoral vein with normal venous Doppler signals. Comparison: ??No previous study in our vascular lab da tabase for comparison. Notification: Danette bunch APRN was informed of these preliminary findings, patient returned to cardiology. Electronically Signed by: ELIZABETH LLANOS on 2017-12-06 06:24: 49 PM VB Text End of Report [facility]AS[facility] Report Specimen (Source) Anatomical Collection Method Collection Time Re ceived Time Location / / Volume Laterality 11/29/2017 10:32 AM EDT Danette Maxwell APRN VASCULAR ORDERABLES Performing Organization Address City/State/ZIP Code Phon e Number [facility] documented in this encounter Visit Diagnoses Diagnosis PAD (peripheral artery disease) Peripheral vascular disease, unspecified documented in this encounter Care Teams Risk Modeler Relationship Specialty Start Date End Date Lovely Vicente MD PCP - General 04/16/[address] [place] [address] documented as of this encounter
--- OUTSIDE RECORDS SUMMARY | 2022-02-06 13:32 | XMS_ITS | Encounter Summary ---
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 S/P CABG x 3; Drive [facility] On amiodarone therapy; [place], [place] Atrial fibrillation, unspecified type; [id number] CARDIOLOGY ASCVD (arteriosclerotic cardiovascular d isease) [phone] [place], [place] [address] Social History Tobacco Use Types [...] Sign Reading Time Taken Comments Blood Pressure 130/57 10/07/2017 10:31 AM EDT Pulse 70 10/07/2017 10:31 AM EDT Temperature - - Respiratory Rate - - Oxygen Saturation 100% 10/07/2017 10:31 AM EDT Inhaled Oxygen Concentration - - Weight - - Height 172.7 cm (5' 8) 10/07/2017 10:31 AM EDT Body Mass Index - - documented in this encounter Progress Notes Goddard Danette A, COMMUNITY CENTER COORDINATOR - 10/07/2017 11:20 AM EDT ID and CC: Don Fatima is a 72 y.o. male presenting for hospital f/u regarding ASCVD, ischemic cardiomyopathy ?? HPI: [...] coumadin for anticoagulation. Discharge weight: 200 lb ?? Hospitalized again on 07/20/2017 with complaints of Bilateral feet swelling and pain in his toes, paleness in right foot. Placed on Heparin drip. ABIs were without occlusive disease, duplex showed a right common femoral vein thrombosed pseudoaneurysm. No active flow in the PSA and occlusive bilateral anterior tibial arteries. INR was found to be sub-therapeutic. Discharged home on Lovenox and coumadin ?? Hospitalized again on 07/27/2017 for worsening RLE pain. Right arterial duplex showed no change since last exam. Patient treated with pain medication. 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 He states that the pain is severe and made worse with rest; the pain is relieved by weight bearing and walking. He states that his foot has been painful and gradually swellingsince he was discharged home after his CABG. ?? Last visit: 08/26/2017. Doing well at that visit. No changes to his medications. Interim events: Had surgery again on his right foot 09/16/2017 at [facility]. Being seen in [facility] by Dr. Espino On IV antibiotics at [facility] Today: Mr. Fatima is accompanied by his today He tells me his breathing is okay His right foot is bandaged. He uses a scooter to get around He is sleeping better over this last week, but it is not good due to the pain he experiences in his foot. He still sleeping sitting up because of that pain He does have lower extremity swelling He denies abdominal distention He has no dizziness or lightheadedness His appetite is good ?? Patient Active Problem List ?? Diagnosis ??? [...] Medications These changes are accurate as of 10/07/17 11:59 PM. If you have any questions, ask your nurse or doctor. Continued medications with new dosing Dose Details AMIOdarone 200 mg Tab Commonly known as: CORDARONE; PACERONE Take 1 tablet by mouth daily. What changed: - medication strength - how much to take Changed by: Danette Maxwell APRN 200 mg Refills: 0 furosemide 20 mg Tab Commonly known as: LASIX Take 2 tablets by mouth daily. What changed: how much to take 40 mg Quantity: 60 tablet Refills: 3 Continued medications, unchanged Dose Details ACCU-CHEK TERA PLUS TEST STRP Strp 2-3 times daily Generic drug: blood sugar diagnostic strips Quantity: 100 each Refills: 1 acetaminophen 500 mg Tab Commonly known as: TYLENOL Take 2 tablets by mouth every 6 hours as needed for Pain. 1000 mg Quantity: 30 tablet Refills: 1 aspirin 81 mg Tbec Take 81 mg by mouth every other day. 81 mg Refills: 0 atorvastatin 40 mg Tab Commonly known as: LIPITOR Take 1 tablet by mouth every evening. 40 mg Quantity: 90 tablet Refills: 3 BD INSULIN PEN NEEDLE UF MINI 31 gauge x 3/16 Ndle 1 each by Other route 4 times daily. Generic drug: insulin needles (disposable) 1 each Refills: 0 clobetasol 0.05 % Soln Commonly known as: TEMOVATE Apply 1 Application topically 2 times daily. 1 Application Refills: 1 fish oil-omega-3 fatty acids 1,000 mg Cap Take 2 g by mouth daily. 2 g Refills: 0 HYDROmorphone 2 mg Tab Commonly known as: DILAUDID Take 1-2 tablets by mouth every 3 hours as needed for Pain (2mg for mild - moderate pain 1-6 OR 4mg for severe pain 7-10). 2-4 mg Quantity: 30 tablet Refills: 0 insulin glargine Soln Inject 15 Units subcutaneously nightly. 15 Units Quantity: 10 mL Refills: 12 insulin lispro Soln Commonly known as: humaLOG Inject 11 Units subcutaneously 3 times daily (with meals). 11 Units Quantity: 10 mL Refills: 12 levothyroxine 175 mcg Tab Commonly known as: SYNTHROID Take 1 tablet by mouth daily. 1 tablet daily 6 days per week, and 2 tablets 1 day per week. 175 mcg Quantity: 102 tablet Refills: 3 lisinopril 2.5 mg Tab Commonly known as: PRINIVIL;ZESTRIL Take 2.5 mg by mouth daily. 2.5 mg Refills: 0 LORazepam 0.5 mg Tab Commonly known as: ATIVAN Take 1 tablet by mouth every 6 hours as needed. 0.5 mg Quantity: 30 tablet Refills: 0 Magnesium Oxide 500 mg Cap Take 500 mg by mouth 2 times daily. 500 mg Refills: 0 melatonin 3 mg Tab Take 2 tablets by mouth nightly. 6 mg Refills: 0 metFORMIN 850 mg Tab Commonly known as: GLUCOPHAGE Take 1 tablet by mouth 2 times daily (with meals). 850 mg Quantity: 60 tablet Refills: 12 meTOPROLOL succinate 25 mg Tablet sr Commonly known as: TOPROL-XL Take 25 mg by mouth daily. 25 mg Refills: 0 polyethylene glycol 17 gram Pwpk Commonly known as: MIRALAX Take 17 g by mouth daily as needed. 17 g Quantity: 14 each Refills: 0 turmeric root extract 500 mg Cap Take 500 mg by mouth 2 times daily. 500 mg Refills: 0 vitamin C 500 mg Tab Take 500 mg by mouth daily. Winter months only Generic drug: ascorbic acid (vitamin C) 500 mg Refills: 0 warfarin 2.5 mg Tab Commonly known as: COUMADIN Take 1 tablet by mouth daily. 2.5 mg Refills: 0 STOPPED Medications lidocaine 10 mg/mL (1 %) Soln Commonly known as: XYLOCAINE Stopped by: Danette Maxwell APRN senna 8.6 mg Tab Commonly known as: SENOKOT Stopped by: Danette Maxwell APRN ?? Allergies: Review of patient's allergies indicates no known allergies. ?? Heart Failure Management: Yes/No No?/Discontinued/Why Beta chadwick Yes Metoprolol tartrate 25 mg bid KIRSTIN/ARB Yes Lisinopril 10 mg daily Spironolactone No K+ > 5.0 today AFIB? Post-op ?? Anticoagulated Yes Coumadin Device No EF now 45% ?? Interval ROS: Patient denies cough, fever, PND, orthopnea, activity intolerance, leg swelling, change in bowel habit, presyncope or syncope. ?? Physical Exam: BP 130/57 Pulse 70 Ht 172.7 cm (5' 8) SpO2 100% ?? General: NAD, able to sit in chair and talk HEENT: No JVD or carotid abnormalities Lungs: Clear to A+P Cor: RR, normal S1, S2. PMI not displaced. No murmur or gallop. M/S: Sternal incision: dry, well approximated, no erythema Abd: soft, no L/S/K enlargement or bruits. Ext: 1-2+ edema. Right foot bandaged. Clean and dry.? Lab data: Recent Labs 10/07/17 0848 NA 143 K 4.7 CL 102 CO2 28 BUN 27* CREATININE 1.07 GLUCOSE 99 ProBNP Date Value Ref Range Status 10/07/2017 1170 (H) <=125 pg/mL Final 08/26/2017 2373 (H) <=125 pg/mL Final 08/04/2017 3133 (H) <=125 pg/mL Final Lab Results Component [...] LV function. ? Assessment: Mr. Fatima appears euvolemic today. His proBNP is approximately 1200. He continues to have his chronic lower extremity edema but no JVD. Echocardiogram today shows that his ejection fraction has improved to 45%. He continues to have wall motion abnormalities. The plan is to continue his me dications at the current doses. He will continue to see Dr. Bains well at [facility] and follow his wound on his right lower extremity. And she will continue to direct antibiotic treatment. Ihave asked that the echocardiogram results be faxed to Dr. Zurita at [facility]. 1. ASCVD Continue ASA, BB and statin Stable No chest pain ?? 2. Ischemic cardiomyopathy On BB and KIRSTIN-I No spironolactone as K+ has been > 5.0 EF now and 45% ?? 3. Systolic heart failure ACC/AHA stage C, NYHA FC II-III proBNP is down Continue Lasix 20 mg daily ?? 4. HTN BP well controlled on current regime (130/57 today) ?? 5. Hx of hyperkalemia K+ 4.7 today Given information regarding low potassium diet 6. Post-op atrial fibrillation IV Amiodarone drip in hospital, changed to po Continues on Amiodarone 200 mg daily EKGs all record NSR On coumadin INR managed by PCP 7. PAD/critical limb ischemia 08/06/2017: Right 1st, 2nd, 3rd toe amputation 08/11/2017: Left??femoral arterial access, RLE??angiogram, Balloon angioplasty of R PT with Eleazar 2.5 x 80 Recent debridement and bone removal by Dr. Aguero at [facility]. Currently receiving IV antibiotics at [facility] ? Plan: 1. A review of the active management and working diagnosis(es) was conducted. 2. The patient's medication list was updated and new Rxs given as needed. 3. Question were answered regarding: Echocardiogram, lab results and treatment plan going forward 4. The following labs or other testing advised: proBNP and BMP at next visit. Needs PFTs as baselinefor Amiodarone monitoring 5. Heart Failure Clinic follow up scheduled for: September Danette Maxwell APRN 10/06/2017 documented in this encounter Plan of Treatment Upcoming Encounters Date Type Specialty Care Team Description 02/19/2022 Laboratory Appointment Lab 02/19/2022 Office Visit Cardiology Liz Poole PA [facility] Cardiology Dept [place], [place] [address] (Wo rk) 03/12/2022 Office Visit Cardiology Vitaliy Nobles MD [facility] CARDIOLOGY [place], [place] [address] (Wo rk) documented as of this encounter Results (ABNORMAL) Basic Metabolic Panel (non-fasting) (10/07/2017 8:48 AM EDT) athologist Signature Glucose Lvl 99 65 - 199 [facility] mg/dL [facility] Comment: Diabetes: >=200 mg/dL plus symp toms BUN 27 (H) 10 - 20 mg/dL [facility] Creatinine 1.07 0.80 - 1.50 mg/dL [facility] Sodium 143 135 - 145 mmol/L [facility] Potassium 4.7 3.5 - 5.0 mmol/L [facility] Comment: Please note: ??Patients with WBC >100,00 0 may have falsely elevated Potassium levels. ??For accurate Potassium quantif ication in these patients send serum separator tube (gold top) for subsequent determinations. ??Contact the Clinical Chemistry Laboratory if there are any qu estions. Chloride 102 98 - 107 mmol/L [facility] CO2 28 22 - 31 mmol/L [facility] Anion Gap 13 5 - 15 mmol/L [facility] Calcium 8.4 (L) 8.5 - 10.5 mg/dL [facility] Estimated GFR >60 >=60 [facility] Comment: The reported eGFR should be multiplied b y 1.2 for patients. The MDRD is not an appropriate measure o f renal function for patients with body mass extremes or in patients with acute kidney failure. http://[employer]DHnkdep http://[employer]DHMCnkf Specimen Anatomical Collection Method Collection Time Receive d Time (Source) Location / / Volume Laterality Blood specimen 10/07/2017 8:48 AM 018 8:50 (specimen) EDT AM EDT Resulting Agency Comment Spec In Lab Danette Maxwell APRN CHEMISTRY ORDERABLES Performing Organization Address City/[facility]/[place]IP [place] [address] (ABNORMAL) pro-Brain Natriuretic Peptide (10/07/2017 8:48 AM EDT) P athologist Signature ProBNP 1,170 (H) <=125 [facility] pg/mL [facility] Specimen Anatomical Collection Method Collection Time Receive d Time (Source) Location / / Volume Laterality Blood specimen 10/07/2017 8:48 AM 018 8:50 (specimen) EDT AM EDT Resulting Agency Comment Spec In Lab Danette Maxwell APRN CHEMISTRY ORDERABLES Performing Organization Address City/State/[place] [address] documented in this encounter Visit Diagnoses Diagnosis Chronic systolic heart failure S/P CABG x 3 Postsurgical aortocoronary bypass status On amiodarone therapy Atrial fibrillation, unspecified type ASCVD (arteriosclerotic cardiovascular d isease) Unspecified cardiovascular disease documented in this encounter Care Teams Distributor Operator Relationship Specialty Start Date End Date Lovely Vicente MD PCP - General 04/16/[address] [place] [address] documented as of this encounter
--- OUTSIDE RECORDS SUMMARY | 2022-02-06 13:32 | XMS_ITS | Encounter Summary ---
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 ASCVD (arteriosclerotic cardiovascular d isease); [facility] Cardiomyopathy, ischemic; [place], [place] PAD (peripheral artery disease) [id number] CARDIOLOGY [phone] [place], [place] [address] Social History Tobacco Use Types [...] Sign Reading Time Taken Comments Blood Pressure 134/67 11/29/2017 9:14 AM EDT Pulse 74 11/29/2017 9:14 AM EDT Temperature - - Respiratory Rate - - Oxygen Saturation 97% 11/29/2017 9:14 AM EDT Inhaled Oxygen Concentration - - Weight 79.3 kg (174 lb 14.4 oz) 11/29/2017 9:14 AM EDT Height 172.7 cm (5' 8) 11/29/2017 9:14 AM EDT Body Mass Index 26.59 11/29/2017 9:14 AM EDT documented in this encounter Progress Notes Annette Maxwell, MANUFACTURING MAINTENANCE MECHANIC - 11/29/2017 9:20 AM EDT ID and CC: Gregory Hoang is a 72 y.o. male presenting for hospital f/u regarding ASCVD, ischemic cardiomyopathy ?? HPI: Mr. 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 He states that the pain is severe and made worse with rest; the pain is relieved by weight bearing and walking. He states that his foot has been painful and gradually swellingsince he was discharged home after his CABG. ?? Last visit: 10/07/2017. Doing well at that visit. No changes to medications. Interim events: 10/25/2017 right popliteal-pedal bypass using left greater saphenous vein (done at [facility]), debridement of right foot with wound vac Today: Mr. Hoang is accompanied by his today Denies chest pain Denies SOB. No breathing problems Uses a walker to get around and hops on left foot Sleeping better now that pain is better controlled. No PND or orthopnea. Sleeps in a hospital bed with HOB slightly up Appetite is good LE edema is better. No abdominal distention Denies dizziness or lightheadedness. No syncope Denies palpitations Has large lump at upper border of left thigh incision ?? Patient Active Problem List ?? Diagnosis [...] Medications These changes are accurate as of 11/29/17 10:20 AM. If you have any questions, ask [...] 1000 mg Quantity: 30 tablet Refills: 1 AMIOdarone 200 mg Tab Commonly [...] PEN NEEDLE UF MINI 31 gauge x /16 Ndle 1 each by Other route 4 times daily. Generic drug: insulin needles (disposable) 1 each Refills: 0 clobetasol 0.05 % Soln Commonly known as: TEMOVATE Apply 1 Application topically 2 times daily. 1 Application Refills: 1 fish oil-omega-3 fatty acids 1,000 mg Cap Take 2 g by mouth daily. 2 g Refills: 0 gabapentin 100 mg Cap Commonly known as: NEURONTIN Take 100 mg by mouth 6 times daily. 100 mg Refills: 0 HYDROmorphone 2 mg Tab Commonly known as: DILAUDID Take 1-2 tablets by mouth every 3 hours as needed for Pain (2mg for mild - moderate pain 1-6 OR 4mg for severe pain 7-10). 2-4 mg Quantity: 30 tablet Refills: 0 levothyroxine 175 mcg Tab Commonly [...] by mouth daily. 2.5 mg Refills: 0 ?? Allergies: Review of patient's allergies indicates [...] presyncope or syncope. ?? Physical Exam: BP 134/67 (BP Location (NBP): Left arm, Patient Position: Sitting, BP Cuff Sizes: Adult (25-34 cm)) Pulse 74 Ht 172.7 cm (5' 8) Wt 79.3 kg (174 lb 14.4 oz) SpO2 97% BMI 26.59 kg/m2 ?? General: NAD, able to transfer from wheelchair to exam table without problems HEENT: JVD 6 cm H2O. Lungs: Clear to A+P Cor: RR, normal S1, S2. PMI not displaced. No murmur or gallop. M/S: Left thigh incision well healed. Large hematoma at upper edge of incision. No erythema Abd: soft, no L/S/K enlargement or bruits. Ext: 1-2+ edema. Right foot with wound vac in place. Warm feet bilaterally.? Lab data: Recent Labs 11/29/17 0822 NA 137 K 4.1 CL 97* CO2 23 BUN 26* CREATININE 0.96 GLUCOSE 217* ProBNP Date Value Ref Range Status 11/29/2017 1769 (H) <=125 pg/mL Final 10/07/2017 1170 (H) <=125 pg/mL Final 08/26/2017 2373 (H) <=125 pg/mL Final Lab Results Component [...] improvement in LV function. ? Assessment: Mr. Hoang appears euvolemic today. His proBNP is more elevated than at prior visit, but he has no s/s of HF. He continues to have his chronic lower extremity edema but no JVD. He had a right popliteal-pedal bypass using a SV from his left leg. He has developed a new hematoma. I will obtain an arterial duplex to evaluate for pseudoaneurysm. Continue current medications. 1. ASCVD Continue ASA, BB and statin [...] HTN BP well controlled on current regime (134/67 today) ?? 5. Hx of hyperkalemia K+ 4.1 today Given information regarding low potassium diet 6. Post-op atrial fibrillation Amiodarone disconinued On coumadin INR managed by PCP. 2.1 today 7. PAD/critical limb ischemia 08/06/2017: Right 1st, 2nd, 3rd toe amputation 08/11/2017: Left??femoral arterial access, RLE??angiogram, Balloon angioplasty of R PT with Eleazar 2.5 x 80 10/25/2017: right popliteal-pedal bypass at [facility] ? Plan: 1. A review of the [...] Heart Failure Clinic follow up scheduled for: March Annette Maxwell APRN 11/29/2017 documented in this encounter Plan of Treatment Upcoming Encounters Date Type Specialty Care Team Description 02/19/2022 Laboratory Appointment Lab 02/19/2022 Office Visit Cardiology Liz Poole PA [facility] Cardiology Dept [place], [place] [address] (Wo rk) 03/12/2022 Office Visit Cardiology Vitaliy Nobles MD [facility] CARDIOLOGY [place], [place] [address] (Wo rk) documented as of this encounter Results Arterial Duplex Leg, Unil (11/29/2017 10:32 AM EDT) Component Value Ref Test Analysis Performed At [facility] Range Method Time Signature VB Text Department: Vascular Surgery Lab VASCUBASE Report Patient: [id number] (GREGORY HOANG) CPT: 38422 ICD10: I72.4;I73.9 Referring Physician: ANNETTE MAXWELL ?? Phone: Indications: s/p right toe [...] vascular lab da tabase for comparison. Notification: Annette bunch APRN was informed of these preliminary findings, patient returned to cardiology. Electronically Signed by: ELIZABETH LLANOS on 2017-12-06 06:24: 49 PM VB Text End of Report VASCU[facility] Report Specimen (Source) Anatomical Collection Method Collection Time Re ceived Time Location / / Volume Laterality 11/29/2017 10:32 AM EDT Annette Maxwell APRN VASCULAR ORDERABLES Performing Organization Address City/State/ZIP Code Phon e Number [facility] (ABNORMAL) Basic Metabolic Panel (non-fasting) (11/29/2017 8:22 AM EDT) P athologist Signature Glucose Lvl 217 (H) 65 - [address] [facility] mg/dL [facility] Comment: Diabetes: >=200 mg/dL plus symp toms BUN 26 (H) 10 - 20 mg/dL [facility] Creatinine 0.96 0.80 - 1.50 mg/dL [facility] Sodium 137 135 - 145 mmol/L [facility] Potassium 4.1 3.5 - 5.0 mmol/L [facility] Comment: Please note: ??Patients with WBC >100,00 0 may have falsely elevated Potassium levels. ??For accurate Potassium quantif ication in these patients send serum separator tube (gold top) for subsequent determinations. ??Contact the Clinical Chemistry Laboratory if there are any qu estions. Chloride 97 (L) 98 - 107 mmol/L [facility] CO2 23 22 - 31 mmol/L [facility] Anion Gap 17 (H) 5 - 15 mmol/L [facility] Calcium 8.5 8.5 - 10.5 mg/dL [facility] Estimated GFR >60 >=60 [facility] Comment: The reported eGFR should be multiplied b y 1.2 for patients. The MDRD is not an appropriate measure o f renal function for patients with body mass extremes or in patients with acute kidney failure. http://[employer]DHnkdep http://[employer]/DHMCnkf Specimen Anatomical Collection Method Collection Time Receive d Time (Source) Location / / Volume Laterality Blood specimen 11/29/2017 8:22 AM 018 8:29 (specimen) EDT AM EDT Resulting Agency Comment Spec In Lab Annette Maxwell APRN CHEMISTRY ORDERABLES Performing Organization Address City/State/[place] [address] (ABNORMAL) pro-Brain Natriuretic Peptide (11/29/2017 8:22 AM EDT) athologist Signature ProBNP 1,769 (H) <=125 [facility] pg/mL [facility] Specimen Anatomical Collection Method Collection Time Receive d Time (Source) Location / / Volume Laterality Blood specimen 11/29/2017 8:22 AM 018 8:29 (specimen) EDT AM EDT Resulting Agency Comment Spec In Lab Annette Maxwell MANUFACTURING MAINTENANCE MECHANIC CHEMISTRY ORDERABLES Performing Organization Address City/State/ZIP [place] [address] documented in this encounter Visit Diagnoses Diagnosis Chronic systolic congestive heart failur e Chronic systolic heart failure ASCVD (arteriosclerotic cardiovascular d isease) Unspecified cardiovascular disease Cardiomyopathy, ischemic Other specified forms of chronic ischemi c heart disease PAD (peripheral artery disease) Peripheral vascular disease, unspecified documented in this encounter Care Teams Hospital Administrator Relationship Specialty Start Date End Date Lovely Vicente MD PCP - General 04/16/[address] [place] [address] documented as of this encounter
--- OUTSIDE RECORDS SUMMARY | 2022-02-06 13:32 | XMS_ITS | Encounter Summary ---
:1945 Author Organization [facility] [place] [address] Care Team Providers Name Role Phone Lovely Vicente MD Primary Care Provider Encounter Details Date Type Department Care Team Description 09/06/2017 Telephone Vascular Surgery at [facility] [place] Clark, [place] [address] Social History Tobacco Use Types Packs/Day Years Used Date Former Smoker Cigarettes 3 5 Quit: 07/26/18 69 Smokeless Tobacco: Never Used Alcohol Use Standard Drinks/Week Comments No 0 (1 standard drink = 0.6 oz pure alcoho l) Sex Assigned at Date Recorded Not on file documented as of this encounter Miscellaneous Notes Telephone Encounter - Ninfa Clark RN - 09/06/2017 1:31 PM EST Peter Mathias RN from [facility] called as there is +odor from his wound as well as 95% slough in the wound. She was there Wednesday09/03/17 and only 25% covered the wound compared to today. Also, pt c/o sharp shocking pain in that foot, as well as some pain in the R thigh. Also [facility] was wondering if a liquid lidocaine could be used for the wound vac dressing changes on the wound bed as she tried some today and he tolerated well. No fever, no redness, noted from the site. Patient is due to be seen 09/07/17 in the vascular surgery clinic so will follow documented in this encounter Plan of Treatment Upcoming Encounters Date Type Specialty Care Team Description 02/19/2022 Laboratory Appointment Lab 02/19/2022 Office Visit Cardiology Liz Poole PA [facility] er Cardiology Dept [place], [place] [address] (Wo rk) 03/12/2022 Office Visit Cardiology Vitaliy Nobles MD [facility] MEDICAL [facility] ER CARDIOLOGY [place], [place] [address] (Wo rk) documented as of this encounter Visit Diagnoses Not on filedocumented in this encounter Care Teams Accounts Clerk Relationship Specialty Start Date End Date Lovely Vicente MD PCP - General 04/16/[address] [place] [address] documented as of this encounter
--- OUTSIDE RECORDS SUMMARY | 2022-02-06 13:32 | XMS_ITS | Encounter Summary ---
:1945 Author Organization [facility] [place] [address] Care Team Providers Name Role Phone Lovely Vicente MD Primary Care Provider Encounter Details Date Type Department Care Team Description 10/05/2017 Telephone [place] [facility] [place]iko Sin MD [facility] [place] [address] CARDIOLOGY DEPT [phone] [place], [place] [address] (Wo rk) Social History Tobacco [...] 02/19/2022 Office Visit Cardiology Liz Poole PA [facility] er Cardiology Dept [place], [place] [address] (Wo rk) 03/12/2022 Office Visit Cardiology Vitaliy Nobles MD [facility] ER CARDIOLOGY [place], [place] [address] (Wo rk) documented as of this encounter Visit Diagnoses Not on filedocumented in this encounter Care Teams Front End Architect Relationship Specialty Start Date End Date Lovely Vicente MD PCP - General 04/16/[address] [place] [address] documented as of this encounter
--- OUTSIDE RECORDS SUMMARY | 2022-02-06 13:32 | XMS_ITS | Encounter Summary ---
:1945 Author Organization [facility] [place] [address] Care Team Providers Name Role Phone Lovely Vicente MD Primary Care Provider Encounter Details Date Type Department Care Team Description 09/07/2017 Laboratory Appointment Lab 3L [facility] Hx of [facility] [place] [address] Social History Tobacco Use Types Packs/Day Years [...] Visit Cardiology Liz Poole PA [facility] er Cardiology Dept [place], [place] [address] (Wo rk) 03/12/2022 Office Visit Cardiology Vitaliy Nobles MD [facility] ER CARDIOLOGY [place], [place] [address] (Wo rk) documented as of this encounter Procedures Procedure Name Priority Date/Time Associated Diagnosis Comme nts THYROGLOBULIN Routine 09/07/2017 2:41 PM Hx of papillary Resul ts for this EST thyroid carcinoma procedure are in the results section . TSH STAT 09/07/2017 2:41 PM Hx of papillary Result s for this EST thyroid carcinoma procedure are in the results section . documented in this encounter Results Thyroglobulin (09/07/2017 2:41 PM EST) P athologist Signature Thyroglobulin 1.4 <=54.9 [facility] ng/mL [facility] Comment: Thyroglobulin levels may be unreliable a nd falsely low in TgAb positive samples (TgAb <20 is consistent with TgAb negati vity). If Tg Antibodies are present an alternative Tg assay performed via mass spectrometry may be indicated. ??A clinical cutoff of <2.0 ng/ml should be used for athyrotic individuals. Pediatric reference ranges have not been established. Assay performed using the DPC Immulite T g immunometric assay (lowest detection limit is <0.4 ng/ml). Thyroglob Ab <20.0 0.0 - 40.0 IU/mL [facility] Comment: Assay performed is the DPC Immulite Tg-A b immunometric assay. (Cutoff for TgAb negativity is <20 IU/ml ) Specimen Anatomical Collection Method Collection Time Receive d Time (Source) Location / / Volume Laterality Blood specimen 09/07/2017 2:41 PM 018 2:46 (specimen) EST PM EST Resulting Agency Comment Spec In Lab Luz Prescott MD CHEMISTRY ORDERABLES Performing Organization Address City/[facility]/ZIP Code Phon e Number [address] TSH (09/07/2017 2:41 PM EST) P athologist Signature TSH 3.93 0.27 - 4.20 [facility] mlU/ML [facility] Specimen Anatomical Collection Method Collection Time Receive d Time (Source) Location / / Volume Laterality Blood specimen 09/07/2017 2:41 PM 018 2:46 (specimen) EST PM EST Resulting Agency Comment Spec In Lab Luz Prescott MD CHEMISTRY ORDERABLES Performing Organization Address City/[facility]/[place] [address] documented in this encounter Visit Diagnoses Diagnosis Hx of papillary thyroid carcinoma Personal history of malignant neoplasm o f thyroid documented in this encounter Care Teams Inspector Ball Points Relationship Specialty Start Date End Date Lovely Vicente MD PCP - General 04/16/[address] [place] [address] documented as of this encounter
--- OUTSIDE RECORDS SUMMARY | 2022-02-06 13:32 | XMS_ITS | Encounter Summary ---
:1945 Author Organization [facility] [place] [address] Care Team Providers Name Role Phone Lovely Vicente MD Primary Care Provider Reason for Visit Reason Comments Follow-up Encounter Details Date Type Department Care Team Description 08/19/2017 Office Visit Cardiac Surgery at [facility], Jock S/P C ABG (coronary [facility], artery bypass graft) [facility] [place] CARDIOTHORACIC [address] SURGERY [phone] [place], [place] [address] Social History Tobacco Use Types [...] Sign Reading Time Taken Comments Blood Pressure 128/53 08/19/2017 10:15 AM EST Pulse 69 08/19/2017 10:15 AM EST Temperature - - Respiratory Rate - - Oxygen Saturation 97% 08/19/2017 10:15 AM room air EST Inhaled Oxygen Concentration - - Weight 84.3 kg (185 lb 14.4 oz) 08/19/2017 10:15 AM EST Height 172.7 cm (5' 8) 08/19/2017 10:15 AM EST Body Mass Index 28.27 08/19/2017 10:15 AM EST documented in this encounter Progress Notes Yuan [facility] MD - 08/19/2017 10:40 AM EST To: MD Lovely Steven MD Re: Don Fatima ( 1945) Dear Garland and Lovely, We had an opportunity to see Mr. Fatima today as a follow-up visit from his bypass surgery of 07/07/2017. He is in the interval undergone a forefoot amputation for ischemia. He denies effort dyspnea or angina. His postoperative chest x-ray is clear. On examination he has a he has a blood pressure 128/53 his heart rates in the 60s and sinus by palpation. His midline sternal wound is healed well there is no further sternal drainage the underlying sternumis firm to palpation without a click. His chest is clear to auscultation. His lower extremity has a wound VAC in place with dependent rubor. In summary, Mr. Fatima has recovered from his bypass surgery we are going to discharge him from ourservice at this time and leave them in your care. In the interim should there be anything further that I can provide please do not hesitate to contact my office. Best personal regards, Yuan Retana MD [phone] documented in this encounter Plan of Treatment Upcoming Encounters Date Type Specialty Care Team Description 02/19/2022 Laboratory Appointment Lab 02/19/2022 Office Visit Cardiology Liz Poole PA [facility] Cardiology Dept [place], [place] [address] (Wo rk) 03/12/2022 Office Visit Cardiology Vitaliy Nobles MD [facility] CARDIOLOGY [place], [place] [address] (Wo rk) documented as of this encounter Procedures Procedure Name Priority Date/Time Associated Diagnosis Comme nts EKG 12-LEAD Routine 08/19/2017 10:23 AM S/P CABG (coronary Re sults for this EST artery bypass graft) procedu re are in the results section . documented in this encounter Results EKG 12 Lead (08/19/2017 10:23 AM EST) Component Value Ref Range Test Analysis Performed Pathologis t Method Time At Signature Ventricular rate 71 BPM MUSE SYSTEM Atrial Rate 71 BPM MUSE SYSTEM P-R Interval 150 ms MUSE SYSTEM QRS Duration 102 ms MUSE SYSTEM Q-T Interval 418 ms MUSE SYSTEM QTC Calculated 454 ms MUSE SYSTEM (Bezet) Calculated P Caro 20 degrees MUSE SYSTEM Calculated R Caro -29 degrees MUSE SYSTEM Calculated T Caro 121 degrees MUSE SYSTEM INTERPRETATION Normal sinus rhythm MUSE SYSTEM Inferior infarct (cited on or before 25-JAN-2013) Anterior 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) T wave abnormality, consider lateral ischemia Abnormal ECG When compared with ECG of 06-AUG-2017 12:37, No signif icant change was found Confirmed by MD Luci, Taurus Braun ([id number]) on 08/19/2017 1 0:37:38 PM Specimen Anatomical Collection Method Collection Time Receive d Time (Source) Location / / Volume Laterality 08/19/2017 10:23 08/19/2017 AM EST 10:37 PM EST Yuan Retana MD ECG ORDERABLES Performing Organization Address City/State/ZIP Code Phon e Number MUSE SYSTEM documented in this encounter Visit Diagnoses Diagnosis S/P CABG (coronary artery bypass graft) Postsurgical aortocoronary bypass status documented in this encounter Care Teams Route Aide Relationship Specialty Start Date End Date Lovely Vicente MD PCP - General 04/16/[address] [place] [address] documented as of this encounter
--- OUTSIDE RECORDS SUMMARY | 2022-02-06 13:32 | XMS_ITS | Encounter Summary ---
:1945 [place] [address] Care Team Providers Name Role Phone Lovely Vicente MD Primary Care Provider Encounter Details Date Type Department Care Team Description 08/26/2017 Hospital Encounter Vascular Lab at [facility], Athero embolism of foot, right; [place], [place] Delayed surgi nusrat wound healing, [place] [phone] Social History Tobacco Use Types Packs/Day Years Used Date Former Smoker Cigarettes 3 5 Quit: 07/26/18 69 Smokeless Tobacco: Never Used Alcohol Use Standard Drinks/Week Comments No 0 (1 standard drink = 0.6 oz pure alcoho l) Sex Assigned at Date Recorded Not on file documented as of this encounter Medications at Time of Discharge Medication Sig Dispensed Refills Start Date End Date meTOPROLOL succinate Take 25 mg by mouth 0 (TOPROL-XL) 25 mg daily. 0.5 tablet of 50 Tablet Sustained mg Release 24 hr Magnesium Oxide 500 mg Take 500 mg by mouth 0 Capsule daily. metFORMIN (GLUCOPHAGE) Take 1 tablet by mouth 60 tablet 12 1 09/15/2016 850 mg Tablet 2 times daily (with meals). ACCU-CHEK TERA PLUS 2-3 times daily 100 each 1 07/14/2017 TEST STRP Strip BD INSULIN PEN NEEDLE 1 each by Other route 4 0 1 09/14/2016 UF MINI 31 gauge x times daily. 3/16 Needle amoxicillin-clavulanat Take 1 tablet by mouth [...] (SENOKOT) 8.6 mg Take 2 tablets by mouth 60 tablet 11 08/16/2017 10/07/2017 Tablet 2 times daily as needed for Constipation. melatonin 3 mg Tablet Take 2 tablets by mouth 0 0 08/16/2017 01/16/2019 nightly. HYDROmorphone Take 1-2 tablets by 30 [...] furosemide (LASIX) 20 Take 2 tablets by mouth 60 tablet 3 0 08/04/2017 09/06/2019 mg Tablet daily. clobetasol (TEMOVATE) Apply 1 Application 1 06/2009/06/2019 0.05 % Solution topically 2 times daily. warfarin (COUMADIN) Take 1 tablet by mouth 0 06/2612/12/2021 2.5 mg Tablet daily. acetaminophen Take 2 tablets by mouth 30 tablet 1 7 01/06/2018 (TYLENOL) 500 mg every 6 hours as needed Tablet for Pain. AMIOdarone (PACERONE) Take 1 tablet by mouth 30 tablet 0 10/08/2017 400 mg Tablet daily. atorvastatin (LIPITOR) Take 1 tablet by mouth 90 tablet 3 1 09/14/2016 09/06/2019 40 mg Tablet every evening. levothyroxine Take 1 tablet by mouth 90 [...] 02/19/2022 Office Visit Cardiology Liz Poole PA [facility] Cardiology Dept [place], [place] [address] (Wo rk) 03/12/2022 Office Visit Cardiology Vitaliy Nobles MD [facility] CARDIOLOGY [place], [place] [address] (Wo rk) documented as of this encounter Procedures Procedure Name Priority Date/Time Associated Diagnosis Comme nts JULIAN/TCPO2 Routine 08/26/2017 2:09 PM Atheroembolism of foot , Results for this (TRANSCUTANEOUS EST right procedure are in OXYGEN PRESSURE Delayed surgical wound th e results TEST) healing, initial section. encounter documented in this encounter Results JULIAN/TCPO2 (08/26/2017 2:09 PM EST) Component Value Ref Test Analysis Performed At [facility] Range Method Time Signature VB Text Department: Vascular Surgery Lab [facility] Report Patient: [id number] (DON HOANG) CPT: 63615 ICD10: T81.89XA;I75.021 Referring Physician: ELVER BLOOM ?? 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 perfusion/healing potential Diabetes mellitus: Yes ICD10 Diagnosis Code: T81.89XA, I75.021 Findings: Right ?Pressure (mmHg) ?? JULIAN ??Waveform ?? TBI ??TCPO2 ?? Brachial Artery ?147 ? Dorsalis Pedis (Ankle) Arter y ?178 ?1.21 ??Biphasic ? Posterior Tibial (Ankle) Art anila ??181 ?1.23 ??Biphasic ? Great Toe ?91 ? 0.62 ? 15 cm Below Knee ? 39 ?? ForeFoot ? 34 ?? Left ? Pressure (mmH g) ??TCPO2 ?? Brachial Artery ?142 ? Chest ?59 ?? 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 No significant change in the ankle Doppler waveforms when comp ared to the previous exam performed on 08/13/2017. No previous 4th digit TBI for comparison. Note: The TBI was performed on the 4th digit due to 1st, 2nd , and 3rd amputation. Comment: The ankle pressures are falsely elevated compared t o the Doppler waveforms, most likely due t o calcified tibial arteries. Thus, disease severity is based on Doppler waveforms and toe pressures. Published reports suggest a TCPO2 of 30 mm Hg or greater predictive of adequate tissue oxygenation to promote healing of skin ulcers and amputation sites. The true sensitivity and specifi city of this test, however, is not well established. Previous ABIs with change from previous value: Date RIGHT DP RIGHT PT RT GR TOE RT Sec TOE LEFT DP LE FT PT LT GR TOE LT Sec TOE 1.19 1.31 0.00 ---- 1.26 1.12 0.41 ---- 0.94(-.25) 1.10(-.21) ---- ---- 1.08(-.18) 1.02 (-.10) 0.39(-.02) ---- Current 1.21(+.27) 1.23(+.13) 0.62 ---- ---- ---- ---- ---- Previous TCP02: LEFT CHEST: 109 RIGHT ABOVE KNEE: 51 RIGHT BELOW KNEE: 30 RIGHT FOREFOOT: 19 Electronically Signed by: LYNNE ELIAS on 2017-08-26 03:43 :43 PM VB Text End of Report [facility] Report Specimen (Source) Anatomical Collection Method Collection Time Re ceived Time Location / / Volume Laterality 08/26/2017 2:09 PM EST Elver Bloom MD VASCULAR ORDERABLES Performing Organization Address City/State/ZIP Code Phon e Number [facility] documented in this encounter Visit Diagnoses Diagnosis Atheroembolism of foot, right Delayed surgical wound healing, initial encounter documented in this encounter Care Teams Operations Vice President Relationship Specialty Start Date End Date Lovely Vicente MD PCP - General 04/16/[address] [place] [address] documented as of this encounter
--- OUTSIDE RECORDS SUMMARY | 2022-02-06 13:32 | XMS_ITS | Encounter Summary ---
:1945 Author Organization [facility] [address] Care Team Providers Name Role Phone Lovely Vicente MD Primary Care Provider Encounter Details Date Type Department Care Team Description 10/05/2017 Unscheduled [place] [facility] [place] Sin PATIENT NOT SEEN Encounter [facility] Tamiko Martinez MD [facility] [address] CARDIOLOGY DEPT [phone] [place] [address] Social History Tobacco Use Types Packs/Day Years Used Date Former Smoker Cigarettes 3 5 Quit: 07/26/18 69 Smokeless Tobacco: Never Used Alcohol Use Standard Drinks/Week Comments No 0 (1 standard drink = 0.6 oz pure alcoho l) Sex Assigned at Date Recorded Not on file documented as of this encounter Progress Notes Tamiko Sin MD - 10/26/2017 11:20 AM EDT This patient was not seen in this encounter. documented in this encounter Plan of Treatment Upcoming Encounters Date Type Specialty Care Team Description 02/19/2022 Laboratory Appointment Lab 02/19/2022 Office Visit Cardiology Liz Poole PA [facility] Cardiology Dept [place], [place] [address] (Wo rk) 03/12/2022 Office Visit Cardiology Vitaliy Nobles MD [facility] MEDICAL [facility] ER CARDIOLOGY [place], [place] [address] (Wo rk) documented as of this encounter Visit Diagnoses Diagnosis DH PATIENT NOT SEEN documented in this encounter Care Teams Compressed Gas Equipment Mechanic Relationship Specialty Start Date End Date Lovely Vicente MD PCP - General 04/16/15 [facility] [address] [place] [address] documented as of this encounter
--- OUTSIDE RECORDS SUMMARY | 2022-02-06 13:32 | XMS_ITS | Encounter Summary ---
:1945 Author Organization [facility] [place] [address] Care Team Providers Name Role Phone Lovely Vicente MD Primary Care Provider Reason for Visit Reason Comments Follow-up I'm having trouble with the VAC Encounter Details Date Type Department Care Team Description 08/26/2017 Office Visit Vascular Surgery at [facility], STEPHANIE Mercado Atheroembolism of foot, right; [facility] [address] Delayed surgical wound healing, initial encounter; [facility] VASCULAR SURG YEHUDA Acute on chronic systolic congestive hea rt failure ; [place], [place] [id number] [phone] Social History Tobacco Use Types Packs/Day Years Used Date Former Smoker Cigarettes 3 5 Quit: 07/26/18 69 Smokeless Tobacco: Never Used Alcohol Use Standard Drinks/Week Comments No 0 (1 standard drink = 0.6 oz pure alcoho l) Sex Assigned at Date Recorded Not on file documented as of this encounter Last Filed Vital Signs Vital Sign Reading Time Taken Comments Blood Pressure 165/63 08/26/2017 1:26 PM EST Pulse 87 08/26/2017 1:26 PM EST Temperature 36.9 ??C (98.4 ??F) 08/26/2017 1:26 PM EST Respiratory Rate 18 08/26/2017 1:26 PM EST Oxygen Saturation - - Inhaled Oxygen Concentration - - Weight 83.9 kg (185 lb) 08/26/2017 1:26 PM EST Height 172.7 cm (5' 8) 08/26/2017 1:26 PM EST Body Mass Index 28.13 08/26/2017 1:26 PM EST documented in this encounter Patient Instructions Patient InstructionsAurelia Rivera PA - 08/26/2017 1:00 PM EST Wound care orders: Right foot wound - Apply skin prep to periwound - Window drape wound area with wound VAC drape - May use ostomy paste along border of right 4th toe to assist with seal if needed - 125 mmHg continuous pressure - Please bridge VAC Trac pad off of wound base onto dorsal foot - must have drape beneath this bridge - Change M-W-F If there are problems with maintaining a seal, increasing periwound maceration, tissue quality deterioration, or any evidence of infection then we must be notified. Please watch for any signs of infection which can include redness, swelling, increasing drainage, warmth to the incisional area, foul odor, and fever or chills. If any of these develop near your incisions then please contact the office. Will reevaluate in 2 weeks unless concerns with VAC application persist - if so, then will recheck in 1 week or sooner if needed. Please do not hesitate to call with questions/concerns. documented in this encounter Progress Notes Aurelia Rivera PA - 08/26/2017 1:00 PM EST This patient returned to the vascular clinic today for a post-operative follow up visit. Mr. Hoang was admitted with a STEMI and underwent CABG on 07/07/17. His hospital stay was complicated by A.fib with RVR and he was discharged on Coumadin. However, he returned to the ER on 07/20/17 with new onset right leg leg pain with a pale forefoot with a subtherapeutic INR of 1.5. 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 He returned in mid July because of blistering of his forefoot with cyanosis of his right 1st and 2nd toes with severe rest pain which was not controlled by narcotic pain medication. He was readmitted for definitive intervention and underwent amputation of his right 1st, 2nd, and 3rd toes on 08/06/17. Then he was taken to the IR suite for a right leg arteriogram and was treated with balloon angioplasty of his right PT artery. ?? Today, he returned for a wound check. He was discharged from his rehab to home and into the care of the [facility]. However, since discharge from [facility] he has had some difficulty with continuation ofright foot wound VAC care. There were a few days of no VAC application with the transition home while a new VAC was obtained. Then, he had some difficulty with VNA obtaining a seal on his VAC. He continues to have significant pain in his right forefoot and must dangle his leg to control his. However, even with dependency the pain is not relieved entirely. He denies fevers/chills. He is avoiding weight bearing on his right forefoot as much as possible. PMHx: Past Medical History: Diagnosis Date ??? BPH (benign prostatic hyperplasia) 11/28/2013 ??? CAD (coronary artery disease) ??? Melanoma 2006 mid back ??? Peripheral vascular disease ??? Urinary retention 04/05/2013 SxHx: Past Surgical History: Procedure Laterality Date ??? PRG SOMATOSENSORY TEST, ANY/ALL PER. NERVES, TRUNK OR HEAD 03/28/2013 FACIAL NERVE MONITORING, SETUP performed by Manny Mcknight MD at [facility] MAIN OR ??? PRO AMPUTATION FOOT, TRANSMETATARSAL Right 08/09/2017 AMPUTATION, TRANSMETATARSAL (WRVU 12.71) performed by Yonathan Smith MD at [facility] MAIN OR ??? PRO CABG, ARTERIAL, SINGLE N/A 07/07/2017 @CABG, USING ARTERIAL GRAFT;SINGLE ARTERIAL GRAFT (WRVU 33.75) performed by Yuan Retana MD at [facility] MAIN OR ??? PRO CABG, ARTERY-VEIN, TWO N/A 07/07/2017 @CABG, TWO VENOUS GRAFTS & ARTERIAL GRAFT (WRVU 7.93) performed by Yuan Retana MD at [facility] MAIN OR ??? PRO COLONOSCOPY, REMV LESN, SNARE 01/16/2014 COLONOSCOPY, POLYPECTOMY, REMOVAL LESION BY SNARE performed by Nohemi Jaimes MD at [facility] ENDOSCOPY ??? PRO DRESSING CHANGE UNDER ANESTHESIA Right 08/11/2017 (MSURG) DRESSING CHANGE (FOR OTHER THAN IVAN) UNDER ANES. (WRVU 0.86) performed by Lamar Smith MD at [facility] MAIN OR ??? PRO ENDOSCOPY W/VIDEO-ASST VEIN HARVEST, CABG Right 07/07/2017 ENDOSCOPIC HARVEST VEIN(S) FOR CABG (WRVU 0.31) performed by Yuan Retana MD at [facility] MAIN OR ??? PRO THYROIDECTOMY 03/28/2013 THYROIDECTOMY, TOTAL OR COMPLETE performed by Manny Mcknight MD at [facility] MAIN OR Social Hx: Social History Substance Use Topics ??? Smoking status: Former Smoker Packs/day: 3.00 Years: 5.00 Types: Cigarettes Quit date: 07/26/1967 ??? Smokeless tobacco: Never Used ??? Alcohol use No Medications: Medications 08/26/17 1307 Medication Sig Taking? insulin glargine Solution Inject 15 Units subcutaneously nightly. insulin lispro (HUMALOG) Solution Inject 11 Units subcutaneously 3 times daily (with meals). lidocaine (LIDODERM) 5 % Adhesive Patch, Medicated Apply 1 patch onto the skin daily. (leave on for 12 hours and remove for 12 hours) polyethylene glycol (MIRALAX) 17 gram Powder in Packet Take 17 g by mouth daily as needed. senna (SENOKOT) 8.6 mg Tablet Take 2 tablets by mouth 2 times daily as needed for Constipation. Patient not taking: Reported on 08/19/2017 melatonin 3 mg Tablet Take 2 tablets by mouth nightly. HYDROmorphone (DILAUDID) 2 mg Tablet Take 1-2 tablets by mouth every 3 hours as needed for Pain (2mgfor mild - moderate pain 1-6 OR 4mg for severe pain 7-10). amoxicillin-clavulanate (AUGMENTIN) 875-125 mg Tablet Take 1 tablet by mouth 2 times daily for 14 days. LORazepam (ATIVAN) 0.5 mg Tablet Take 1 tablet by mouth every 6 hours as needed. lisinopril (PRINIVIL;ZESTRIL) 2.5 mg Tablet Take 2.5 mg by mouth daily. furosemide (LASIX) 20 mg Tablet Take 2 tablets by mouth daily. Magnesium Oxide 500 mg Capsule Take 500 mg by mouth 2 times daily. clobetasol (TEMOVATE) 0.05 % Solution Apply 1 Application topically 2 times daily. warfarin (COUMADIN) 2.5 mg Tablet Take 1 tablet by mouth daily. acetaminophen (TYLENOL) 500 mg Tablet Take 2 tablets by mouth every 6 hours as needed for Pain. AMIOdarone (PACERONE) 400 mg Tablet Take 1 tablet by mouth daily. atorvastatin (LIPITOR) 40 mg Tablet Take 1 tablet by mouth every evening. meTOPROLOL tartrate (LOPRESSOR) 25 mg Tablet Take 1 tablet by mouth 2 times daily. ACCU-CHEK TERA PLUS TEST STRP Strip 2-3 times daily metFORMIN (GLUCOPHAGE) 850 mg Tablet Take 1 tablet by mouth 2 times daily (with meals). BD INSULIN PEN NEEDLE UF MINI 31 gauge x 3/16 Needle 1 each by Other route 4 times daily. levothyroxine (SYNTHROID) 175 mcg Tablet Take 1 tablet by mouth daily. ascorbic acid, vitamin C, (VITAMIN C) 500 mg Tablet Take 500 mg by mouth daily. Winter months only turmeric root extract 500 mg Capsule Take 500 mg by mouth 2 times daily. fish oil-omega-3 fatty acids 1,000 mg Capsule Take 2 g by mouth daily. aspirin 81 mg EC tablet Take 81 mg by mouth every other day. Allergies: Allergies Allergen Reactions ??? Gabapentin Palpitations Dizziness, falls (on 100mg bid) Review of Systems: Constitutional (weight change, fever) - Denies Neuro (dizziness, seizures, numbness, tingling) - Denies Eyes (vision) - Denies Ears, nose, throat (hearing) - Denies Cardiovascular (CP) - Denies Respiratory (SOB) - Denies GI (abd pain, nausea, emesis, blood in stool) - Denies (hematuria, dysuria, frequency) - Denies Muscoloskeletal (extremity pain, weakness) - as per HPI Skin (ulcers, rashes) - as per HPI All other ROS negative Physical Exam: Vitals: Most Recent Vitals: 08/26/17 1326 BP: 165/63 Pulse: 87 Resp: 18 Temp: 36.9 ??C (98.4 ??F) PainSc: 0 - No pain Gen: No acute distress. HEENT: Normocephalic, atraumatic. No scleral icterus. Neck: Supple, no JVD. Heart: Regular rate and rhythm. Lungs: Regular respiratory rate with no increased work of breathing. Extremities: Right forefoot wound with 90% fixed and loose yellow slough debrided with scissors/forceps today, 10% granulation tissue No purulence or fluctuance, no bone exposed. Mild malodor with VAC removal along with maceration of periwound tissue Forefoot remains ruborous with remainder of proximal foot/ankle/lower leg with < 3 sec cap refill 2+ right lower leg edema, 1+ left lower leg edema Vascular Exam: R L Femoral 2/2 2/2 DP Dopplerable AT at ankle only PT Dopplerable Psych: AAOx3 Labs/Studies: JULIAN/TcPO2: 08/26/17 Right ?Pressure (mmHg) ?? JULIAN ??Waveform ?? TBI ??TCPO2 ?? Brachial Artery ?147 ? Dorsalis Pedis (Ankle) Artery ?178 ?1.21 ??Biphasic ? Posterior Tibial (Ankle) Artery ??181 ?1.23 ??Biphasic ? Great Toe ?91 ? 0.62 ? 15 cm Below Knee ? 39 ?? ForeFoot ? 34 ?? Left ? Pressure (mmHg) ??TCPO2 ?? Brachial Artery ?142 ? Chest ?59 ?? Interpretation: RIGHT: Mild lower extremity arterial occlusive disease. No significant change in the ankle Doppler waveforms when compared to the previous exam performed on 08/13/2017. No previous 4th digit TBI for comparison. Note: The TBI was performed on the 4th digit due to 1st, 2nd, and 3rd amputation. Comment: The ankle pressures are falsely elevated compared to the Doppler waveforms, most likely dueto calcified tibial arteries. Thus, disease severity is based on Doppler waveforms and toe pressures. Published reports suggest a TCPO2 of 30 mm Hg or greater predictive of adequate tissue oxygenation to promote healing of skin ulcers and amputation sites. The true sensitivity and specificity of this test, however, is not well established. Impression: Right forefoot delayed healing surgical wound s/p right 1st/2nd/3rd toe amputation Right forefoot atheroembolism Recommendations: Mr. Hoang appears to have adequate perfusion in his right forefoot to expect healing of his surgical wound. However, there have been some difficulties with his wound VAC application and with maintaining an adequate seal which has allowed maceration of the periwound and some deterioration of the tissue quality in the wound base. We will continue the wound VAC with updated recommendations for care and will plan to see him back in 2 weeks if this is going well. However, if there are difficulties with the wound VAC that persist or the wound is deteriorating then he should return for follow up. I have recommended periodic leg elevation if tolerated to help manage edema. He will remain anticoagulated at the direction of cardiology. Wound care orders: Right foot wound - Apply skin prep to periwound - Window drape wound area with wound VAC drape - May use ostomy paste along border of right 4th toe to assist with seal if needed - 125 mmHg continuous pressure - Please bridge VAC Trac pad off of wound base onto dorsal foot - must have drape beneath this bridge - Change M-W-F If there are problems with maintaining a seal, increasing periwound maceration, tissue quality deterioration, or any evidence of infection then we must be notified. Please watch for any signs of infection which can include redness, swelling, increasing drainage, warmth to the incisional area, foul odor, and fever or chills. If any of these develop near your incisions then please contact the office. Will reevaluate in 2 weeks unless concerns with VAC application persist - if so, then will recheck in 1 week or sooner if needed. Please do not hesitate to call with questions/concerns. documented in this encounter Plan of Treatment Upcoming Encounters Date Type Specialty Care Team Description 02/19/2022 Laboratory Appointment Lab 02/19/2022 Office Visit Cardiology Liz Poole PA [facility] [place], [place] [address] (Wo rk) 03/12/2022 Office Visit Cardiology Vitaliy Nobles MD [facility] CARDIOLOGY [place], [place] [address] (Wo rk) documented as of this encounter Procedures Procedure Name Priority Date/Time Associated Diagnosis Comme nts PRO-BRAIN STAT 08/26/2017 2:00 Acute on chronic Results for this NATRIURETIC PEPTIDE PM EST systolic congestive p rocedure are in heart failure the results Ischemic section. cardiomyopathy BASIC METABOLIC STAT 08/26/2017 2:00 Ischemic Results f or this PANEL (NON-FASTING) PM EST cardiomyopathy proced ure are in the results section. documented in this encounter Results JULIAN/TCPO2 (08/26/2017 2:09 PM EST) Component Value Ref Test Analysis Performed At [facility] gist Range Method Time Signature VB Text Department: Vascular Surgery Lab VASCUBASE Report Patient: [id number] (GREGORY HOANG) CPT: 21610 ICD10: T81.89XA;I75.021 Referring Physician: ARIK BLOOM ?? 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 perfusion/healing potential Diabetes mellitus: Yes ICD10 Diagnosis Code: T81.89XA, I75.021 Findings: Right ?Pressure (mmHg) ?? JULIAN ??Waveform ?? TBI ??TCPO2 ?? Brachial Artery ?147 ? Dorsalis Pedis (Ankle) Arter y ?178 ?1.21 ??Biphasic ? Posterior Tibial (Ankle) Art yehuda ??181 ?1.23 ??Biphasic ? Great Toe ?91 [...] / Volume Laterality 08/26/2017 2:09 PM EST Arik Bloom MD VASCULAR ORDERABLES Performing Organization Address City/State/ZIP Code Phon e Number VASCUBASE Basic Metabolic Panel (non-fasting) (08/26/2017 2:00 PM EST) athologist Signature Glucose Lvl 98 65 - 199 [facility] mg/dL [facility] Comment: Diabetes: >=200 mg/dL plus symp toms BUN 20 10 - 20 mg/dL [facility] Creatinine 1.17 0.80 - 1.50 mg/dL [facility] Sodium 140 135 - 145 mmol/L [facility] Potassium 4.8 3.5 - 5.0 mmol/L [facility] Comment: Please note: ??Patients with WBC >100,00 0 may have falsely elevated Potassium levels. ??For accurate Potassium quantif ication in these patients send serum separator tube (gold top) for subsequent determinations. ??Contact the Clinical Chemistry Laboratory if there are any qu estions. Chloride 98 98 - 107 mmol/L [facility] CO2 28 22 - 31 mmol/L [facility] Anion Gap 14 5 - 15 mmol/L [facility] Calcium 9.1 8.5 - 10.5 mg/dL [facility] Estimated GFR >60 >=60 [facility] Comment: The reported eGFR should be multiplied b y 1.2 for patients. The MDRD is not an appropriate measure o f renal function for patients with body mass extremes or in patients with acute kidney failure. http://[employer]/DHnkdep http://[place]/DHMCnkf Specimen Anatomical Collection Method Collection Time Receive d Time (Source) Location / / Volume Laterality Blood specimen 08/26/2017 2:00 PM 018 2:15 (specimen) EST PM EST Resulting Agency Comment Spec In Lab Danette Maxwell STACIE CHEMISTRY ORDERABLES Performing Organization Address City/State/ZIP Code Phon e Number [address] (ABNORMAL) pro-Brain Natriuretic Peptide (08/26/2017 2:00 PM EST) P athologist Signature ProBNP 2,373 (H) <=125 [facility] RYAN pg/mL [facility] Specimen Anatomical Collection Method Collection Time Receive d Time (Source) Location / / Volume Laterality Blood specimen 08/26/2017 2:00 PM 018 2:15 (specimen) EST PM EST Resulting Agency Comment Spec In Lab Danette Maxwell STACIE CHEMISTRY ORDERABLES Performing Organization Address City/[facility]/[place] [address] documented in this encounter Visit Diagnoses Diagnosis Atheroembolism of foot, right Delayed surgical wound healing, initial encounter Acute on chronic systolic congestive hea rt failure Acute on chronic systolic heart failure Ischemic cardiomyopathy Other specified forms of chronic ischemi c heart disease documented in this encounter Care Teams Stacker Attendant Relationship Specialty Start Date End Date Lovely Vicente MD PCP - General 04/16/[address] [place] [address] documented as of this encounter
--- OUTSIDE RECORDS SUMMARY | 2022-02-06 13:32 | XMS_ITS | Encounter Summary ---
:1945 Author Organization [facility] [place] [address] Care Team Providers Name Role Phone Lovely Vicente MD Primary Care Provider Reason for Visit Reason Onset Date Comments VNA Calls 08/30/2017 Encounter Details Date Type Department Care Team Description 08/30/2017 Telephone Vascular Surgery at [facility] Cora Reid RN VNA Calls [facility] [place] [address] Social History Tobacco Use Types Packs/Day Years Used Date Former Smoker Cigarettes 3 5 Quit: 07/26/18 69 Smokeless Tobacco: Never Used Alcohol Use Standard Drinks/Week Comments No 0 (1 standard drink = 0.6 oz pure alcoho l) Sex Assigned at Date Recorded Not on file documented as of this encounter Miscellaneous Notes Telephone Encounter - Cora Reid RN - 08/30/2017 12:[address] Smith, appt scheduled today with him for wound check/instructions Mrs Fatima understands and agrees to plan of care. Telephone Encounter - Cora Reid RN - 08/30/2017 11:16 AM EST Caller: Alfonso at [facility] [phone] Reason for call: Changing his wound vac on right foot; more slough, 100% yellow, now has a foul odor, STEPHANIE Saab wanted her to know what is going on Alfonso, will change the wound vac today, however, would like further direction from Yanet first thingT. Alfonso unsure if the wound vac should be replaced by a wet to dry dressing. Would prefer to wait until Yanet returns to Clinic on Wednesday He does say the seal on the wound vac was a good one. Feels the wound bed is raised and the black foam is not touching the area so therefore not therapeutic. At 1151: received t/c from Alfonso who had been in contact with [facility]'s Wound Care Nurse who advised him to put wet to dry until Yanet weighs in on the pt tomorrow. Wet to dry dressing was explained to and she is comfortable in doing the dressing Will review with DR Schmitz today and Yanet on . documented in this encounter Plan of Treatment Upcoming Encounters Date Type Specialty Care Team Description 02/19/2022 Laboratory Appointment Lab 02/19/2022 Office Visit Cardiology Liz Poole PA [facility] Cardiology [place], [place] [address] (Wo rk) 03/12/2022 Office Visit Cardiology Vitaliy Nobles MD [facility] CARDIOLOGY [place], [place] [address] (Wo rk) documented as of this encounter Visit Diagnoses Not on filedocumented in this encounter Care Teams Tax Investigator Relationship Specialty Start Date End Date Lovely Vicente MD PCP - General 04/16/[address] [place] [address] documented as of this encounter
--- OUTSIDE RECORDS SUMMARY | 2022-02-06 13:32 | XMS_ITS | Encounter Summary ---
:1945 Author Organization [facility] [place] [address] Care Team Providers Name Role Phone Lovely Vicente MD Primary Care Provider Encounter Details Date Type Department Care Team Description 09/03/2017 Telephone Vascular Surgery at [facility] Ninfa Clark, [place] [phone] Social History Tobacco Use Types Packs/Day Years Used Date Former Smoker Cigarettes 3 5 Quit: 07/26/18 69 Smokeless Tobacco: Never Used Alcohol Use Standard Drinks/Week Comments No 0 (1 standard drink = 0.6 oz pure alcoho l) Sex Assigned at Date Recorded Not on file documented as of this encounter Miscellaneous Notes Telephone Encounter - Ninfa Clark, RN - 09/03/2017 4:15 PM EST Peter from the VNA called today asking for a script for lidocaine down his VAC tubing prior to dressing changes to help with the discomfort of the change. Reactor Service Operator told the VNA that I would ask Dr. Smith and get back with her on Wednesday. She also wanted to pass along that the patient has some skin breakdown on the top of his foot and she has been using duoderm overtop of that wound. We see this patient Wednesday in clinic and will assess the wound then. Did remind the VNA to remind the pt if need be to go to local ED over the weekend if he notices anything different with the foot. The VNA didn't mention any infection on the skin breakdown area on the top of his foot, she was just notifying us of the wound. documented in this encounter Plan of Treatment Upcoming Encounters Date Type Specialty Care Team Description 02/19/2022 Laboratory Appointment Lab 02/19/2022 Office Visit Cardiology Liz Poole PA [facility] er Cardiology Dept [place], [place] [address] (Wo rk) 03/12/2022 Office Visit Cardiology Vitaliy Nobles MD [facility] CARDIOLOGY [place], [place] [address] (Wo rk) documented as of this encounter Visit Diagnoses Not on filedocumented in this encounter Care Teams Spring Crater Relationship Specialty Start Date End Date Lovely Vicente MD PCP - General 04/16/15 [facility] [address] [place] [address] documented as of this encounter
--- OUTSIDE RECORDS SUMMARY | 2022-02-06 13:32 | XMS_ITS | Encounter Summary ---
:1945 Author Organization [facility] [place] [address] Care Team Providers Name Role Phone Lovely Vicente MD Primary Care Provider Reason for Referral Diagnostic Test (Routine) - Closed Specialty Diagnoses / Procedures Referred By Contact Refer red To Contact Cardiology Diagnoses Ischemic cardiomyopathy Acute on chronic systolic congestive heart failure Danette Maxwell APRN [facility] Non-Inv Card Lab Procedures Echocardiogram Transthoracic(Leb) [place] [address] [place] [address] Referral ID Status Reason Start Date Expiration Date Visits V isits Requested Authorized [id number] Closed Specialty 08/30/2017 08/30/2018 1 1 Service Requested Reason for Visit Diagnostic Test (Routine) - Closed Specialty Diagnoses / Procedures Referred By Contact Refer red To Contact Cardiology Diagnoses Ischemic cardiomyopathy Acute on chronic systolic congestive heart failure Danette Maxwell APRN [facility] Non-Inv Card Lab Procedures Echocardiogram Transthoracic(Leb) [place] [address] [place] [address] Referral ID Status Reason Start Date Expiration Date Visits V isits Requested Authorized [id number] Closed Specialty 08/30/2017 08/30/2018 1 1 Service Requested Encounter Details Date Type Department Care Team Description 10/07/2017 Hospital Encounter Non-Invasive Ischemic cardiomyopathy; Cardiology Lab Barbara Carig on chronic systolic [place] [address] Social History Tobacco Use Types Packs/Day [...] gauge x 4 times daily. 10/08 Needle AMIOdarone (CORDARONE; Take 1 tablet by mouth [...] [facility] [place], [place] [address] (Wo rk) 03/12/2022 Office Visit Cardiology Vitaliy Nobles MD [facility] [address] [place]IOLOGY [place] [address] (Wo rk) documented as of this encounter Procedures Procedure Name Priority Date/Time Associated Comments Diagnosis ECHOCARDIOGRAM COMPLETE Routine 10/07/2017 10:23 Ischemic Results for this W CONTRAST AM EDT cardiomyopathy procedure are in Acute on chronic the results systolic section. congestive heart failure documented in this encounter Results ECHOCARDIOGRAM COMPLETE W CONTRAST (10/07/2017 10:23 AM EDT) P athologist Signature EF 45 HEARTLAB SYSTEM Specimen (Source) Anatomical Location Collection Method / Collectio n Time Received Time / Laterality Volume 10/07/2017 Narrative HEARTLAB SYSTEM - 10/07/2017 11:13 AM ED T Procedure: ?Transthoracic Echocardiogram Patient: ?NATALYA Mccollum ? (Age): 1945(72y) Med Rec#: ? [id number] ?Sex: ?M ? Site Loc: ? [facility] ?Ht / Wt: ??173(cm)/82(kg) Pt. Loc: ?Echo Lab ?BSA: ?1.96 Study Date: ?? 10/07/2017 ?Pt. Type: Outpatient Tape: ? Referring: Danette Maxwell Reading: Iker Cuevas ([id number]) [facility] Manager: Yonathan Bocanegra Diagnosis: *ICD-10-PCS Ischemic cardiomyopathy (I2 5.5) *ICD-10-PCS Acute on chronic systolic ( congestive) heart failure (I50.23) Rhythm: ? Sinus BP: ? 150/60 SUMMARY: 1. The left ventricle is probably normal in size. ??The quantitative left ventricular ejection fraction by biplane Oneill's method is 45%. ??There are left ventricular segmental wall sahra on abnormalities present, as shown in the diagram below. 2. The right ventricle is mildly dilated . Right ventricular global systolic function is probably normal. 3. There is no hemodynamically significa nt valve disease. 4. Compared to the images of 05 Jul 2017 , there has been interval improvement in LV function. Findings ? : Study Quality: ? Technically limited Left Ventricle: ? The left ventricle is probably normal in size. ?Borderline concentric left ventric ular hypertrophy is observed. ?There is no evidence of LVOT obstr uction. ?No ventricular septal defect is vi sualized. ?Global left ventricular systolic f unction is mildly reduced. ?The quantitative left ventricular ejection fraction by biplane Oneill's method is 45%. ?There are left ventricular segment al wall motion abnormalities present, as shown in the diagram below. ?The ??basal anteroseptal, basal in ferolateral, basal inferior, basal inferoseptal, mid anteroseptal, mid ante rior, mid inferolateral, mid inferior, mid inferoseptal, apical anter ior, apical lateral, and ??apical inferior wall segments are hypokinetic ( score 2). ?The ??mid anterolateral, and ??api nusrat septal wall segments are akinetic (score 3). ?Overall wallmotion score index is ??2.00 ?No thrombus is visualized within t he left ventricle. Left Atrium: ? The left atrium is se verely dilated. Volume Index= 57ml/m2. ?No atrial septal defect is visuali zed. Right Ventricle: ? The right ventric le is mildly dilated. ?Right ventricular global systolic function is probably normal. ?Pulmonary artery hypertension coul d not be assessed due to inadequate tricuspid regurgitation jet. Right Atrium: ? The right atrium is [...] size. Venous: ? The inferior vena cava gear ears normal in size. ?There is less than 50% respiratory change in the inferior vena cava dimension consistent with elevated right atrial pressure. Misc: ? There is no hemodynamically significant valve disease. ?Two-dimensional echo, spectral Dop pler and color Doppler performed. ?Optison contrast (one 3 ml vial) w as used to enhance endocardial definition. Excess contrast was discarde d. Chambers 2D ?Value ?Units (Range) ? RVIDd ??Base ? 4.5 ?cm ? IVSd (2D) ? 1.1 ?cm ? LVPWd (2D) ?1.1 ?cm ? IVS:LVPW ratio (2D) 1 ?ratio ? RWT (2D) ?0.5 ?ratio ? RWT PW (2D) ? 0.5 ?ratio ? LVIDd (2D) ?4.8 ?cm ? LVIDs (2D) ?3.9 ?cm ? LVIDd (2D) index ?2.4 ?cm/m2 ? LVIDs (2D) index ?2 ?cm/m2 ? LV FS (2D) ?18 ? % ? EF Teichholz (2D) ?? 37 ? % ? Ao root diameter (2D3.8 ?cm (2.1 - 3.6) ? Ascending Ao ?3.6 ?cm (2 - 3.5) ? Aortic arch ? 2.9 ?cm ? Volumes/Mass ?Value ?Units (Range) ? LA Area 4 CH ?30 ? cm2 (<21) ? RA AREA 4CH ? 24 ? cm2 ? LA ESV BP (MOD) inde57.1 ? ml/m2 ? LV ESV SP 4CH (MOD) 84.8 ? ml ? LV ESV SP 2CH (MOD) 75 ? ml ? LV EDV BP ? 148 ?ml ? LV ESV BP ? 81.5 ? ml ? LV EDV BP index ? 75.5 ? ml/m2 ? LV ESV BP index ? 41.6 ? ml/m2 ? BP EF (MOD) ? 45 ? % ? LV mass (2D) ?196.3 ?g ? LV mass (2D) index ??100.2 ?g/m2 ? Diastolic/Systolic Function ?Value ?Units (Range) ? MV E-wave Vmax ?1.2 ?m/sec ? MV deceleration [id number] ?msec ? MV A-wave Vmax ?1 ?m/sec ? MV E:A ratio ?1.2 ?ratio ? LV septal e' Vmax ?? 0.1 ?m/sec ? LV lateral e' Vmax ??0.1 ?m/sec ? LV average e' Vmax ??0.1 ?m/sec ? LV E:e' septal ratio15 ? ratio ? LV E:e' lateral rati10.9 ? ratio ? LV average E:e' rati12 ? ratio ? Tricuspid Valve ?Value ?Units (Range) ? TAPSE ? 1.7 ?cm ? Wall Motion: Segment Name ?Rest ? Base-Anteroseptal ?? Hypokinetic ? Base-Anterior ? Normal ? Base-Anterolateral ??Normal ? Base-Posterolateral Hypokinetic ? Base-Inferior ? Hypokinetic ? Base-Inferoseptal ?? Hypokinetic ? Mid-Anteroseptal ?Hypokinetic ? Mid-Anterior ?Hypokinetic ? Mid-Anterolateral ?? Akinetic ? Mid-Posterolateral ??Hypokinetic ? Mid-Inferior ?Hypokinetic ? Mid-Inferoseptal ?Hypokinetic ? Midnight-Septal ? Akinetic ? Midnight-Anterior ? Hypokinetic ? Midnight-Lateral ?Hypokinetic ? Midnight-Inferior ? Hypokinetic ? Midnight-Tip ?Akinetic ? This report has been electronically sign ed by: _ Iker Cuevas M.D. ? 10/07/2017 11:12:34 Images reviewed and interpretation verif ied [facility] Cardiac Ultrasound Laboratory Procedure Note Iker Cuevas MD - 10/07/2017Formatti ng of this note might be different from the original. Procedure: Transthoracic Echocardiogram Patient: NATALYA MCBRIDE(Age): [birth year]72y) Med Rec#: [id number] Sex: M Site Loc: [facility] Ht / Wt: 173(cm)/82(kg) Pt. Loc: Echo Lab BSA: 1.96 Study Date: 10/07/2017 Pt. Type: Outpati ent Tape: Referring: Danette Maxwell Reading: Iker Cuevas ([id number]) [facility] [employer] [facility] Manager: Yonathan Bocanegra Diagnosis: *ICD-10-PCS Ischemic cardiomyopathy (I2 5.5) *ICD-10-PCS Acute on chronic systolic ( congestive) heart failure (I50.23) Rhythm: Sinus BP: 150/60 SUMMARY: 1. The left ventricle is probably normal in size. The quantitative left ventricular ejection fraction by biplane Oneill's method is 45%. There are left ventricular segmental wall sahra on abnormalities present, as shown in the diagram below. 2. The right ventricle is mildly dilated . Right ventricular global systolic function is probably normal. 3. There is no hemodynamically significa nt valve disease. 4. Compared to the images of 05 Jul 2017 , there has been interval improvement in LV function. Findings : Study Quality: Technically limited Left Ventricle: The left ventricle is pr obably normal in size. Borderline concentric left ventricular hypertrophy is observed. There is no evidence of LVOT obstructio n. No ventricular septal defect is visuali zed. Global left ventricular systolic functi on is mildly reduced. The quantitative left ventricular eject ion fraction by biplane Oneill's method is 45%. There are left ventricular segmental wa ll motion abnormalities present, as shown in the diagram below. The basal anteroseptal, basal inferolat eral, basal inferior, basal inferoseptal, mid anteroseptal, mid ante rior, mid inferolateral, mid inferior, mid inferoseptal, apical anter ior, apical lateral, and apical inferior wall segments are hypokinetic ( score 2). The mid anterolateral, and apical septa l wall segments are akinetic (score 3). Overall wallmotion score index is 2.00 No thrombus is visualized within the le ft ventricle. Left Atrium: The left atrium is severely dilated. Volume Index= 57ml/m2. No atrial septal defect is visualized. Right Ventricle: The right ventricle is mildly dilated. Right ventricular global systolic funct ion is probably normal. Pulmonary artery hypertension could not be assessed due to inadequate tricuspid regurgitation jet. Right Atrium: The right atrium is mildly [...] appears n ormal in size. There is less than 50% respiratory whitman ge in the inferior vena cava dimension consistent with elevated right atrial pressure. Misc: There is no hemodynamically signif icant valve disease. Two-dimensional echo, spectral Doppler and color Doppler performed. Optison contrast (one 3 ml vial) was us ed to enhance endocardial definition. Excess contrast was discarde d. Chambers 2D Value Units (Range) RVIDd Base 4.5 cm IVSd (2D) 1.1 cm LVPWd (2D) 1.1 cm IVS:LVPW ratio (2D) 1 ratio RWT (2D) 0.5 ratio RWT PW (2D) 0.5 ratio LVIDd (2D) 4.8 cm LVIDs (2D) 3.9 cm LVIDd (2D) index 2.4 cm/m2 LVIDs (2D) index 2 cm/m2 LV FS (2D) 18 % EF Teichholz (2D) 37 % Ao root diameter (2D3.8 cm (2.1 - 3.6) Ascending Ao 3.6 cm (2 - 3.5) Aortic arch 2.9 cm Volumes/Mass Value Units (Range) LA Area 4 CH 30 cm2 (<21) RA AREA 4CH 24 cm2 LA ESV BP (MOD) inde57.1 ml/m2 LV ESV SP 4CH (MOD) 84.8 ml LV ESV SP 2CH (MOD) 75 ml LV EDV BP 148 ml LV ESV BP 81.5 ml LV EDV BP index 75.5 ml/m2 LV ESV BP index 41.6 ml/m2 BP EF (MOD) 45 % LV mass (2D) 196.3 g LV mass (2D) index 100.2 g/m2 Diastolic/Systolic Function Value Units (Range) MV E-wave Vmax 1.2 m/sec MV deceleration [id number] msec MV A-wave Vmax 1 m/sec MV E:A ratio 1.2 ratio LV septal e' Vmax 0.1 m/sec LV lateral e' Vmax 0.1 m/sec LV average e' Vmax 0.1 m/sec LV E:e' septal ratio15 ratio LV E:e' lateral rati10.9 ratio LV average E:e' rati12 ratio Tricuspid Valve Value Units (Range) TAPSE 1.7 cm Wall Motion: Segment Name Rest Base-Anteroseptal Hypokinetic Base-Anterior Normal Base-Anterolateral Normal Base-Posterolateral Hypokinetic Base-Inferior Hypokinetic Base-Inferoseptal Hypokinetic Mid-Anteroseptal Hypokinetic Mid-Anterior Hypokinetic Mid-Anterolateral Akinetic Mid-Posterolateral Hypokinetic Mid-Inferior Hypokinetic Mid-Inferoseptal Hypokinetic Midnight-Septal Akinetic Midnight-Anterior Hypokinetic Midnight-Lateral Hypokinetic Midnight-Inferior Hypokinetic Midnight-Tip Akinetic This report has been electronically sign ed by: _ Iker Cuevas M.D. 10/07/2017 11:12 :34 Images reviewed and interpretation elvie hwang [facility] Cardiac Ultrasound Laboratory Danette A Hans STACIE ECHO ORDERABLES Performing Organization Address City/State/ZIP Code Phon e Number HEARTLAB SYSTEM documented in this encounter Visit Diagnoses Diagnosis Ischemic cardiomyopathy Other specified forms of chronic ischemi c heart disease Acute on chronic systolic congestive hea rt failure Acute on chronic systolic heart failure documented in this encounter Administered Medications Inactive Administered Medications - up to 3 most recent administrations Medication Order MAR Action Action Date Dose Rate Site perflutren protein-A microspheres Given 10/07/2017 10:24 AM EDT 3 mLs (OPTISON) 0.22 mg/mL injection 3 mL 3 mL, Intravenous, ONCE PRN, 1 dose, Starting on Ivis 10/07/17 at 1023, Until Ivis 10/07/17 at 1024, for enhancement of sub-optimal echo images, Echo Lab (Intra-Procedure), Routine documented in this encounter Care Teams Hand Sprayer Relationship Specialty Start Date End Date Lovely Vicente MD PCP - General 04/16/[address] [place] [address] documented as of this encounter
--- OUTSIDE RECORDS SUMMARY | 2022-02-06 13:32 | XMS_ITS | Encounter Summary ---
:1945 Author Organization [facility] [place] [address] Care Team Providers Name Role Phone Lovely Vicente MD Primary Care Provider Reason for Referral Consultation (Routine) - Specialty Diagnoses / Procedures Referred By Contact Refer red To Contact Wound Healing Center Diagnoses Atheroembolism of foot, right Delayed surgical wound healing, subsequent encounter Aurelia Rivera PA [address] [facility] [place] [address] Referral ID Status Reason Start Date Expiration Date Visits V isits Requested Authorized [id number] Consult, 09/08/2017 03/07/2018 1 1 Test & Treat Reason for Visit Reason Comments Wound Check My foot hurts Encounter Details Date Type Department Care Team Description 09/07/2017 Office Visit Vascular Surgery at MiguelAurelia PA Atheroembolism of foot, right; [facility] [address] [facility] Delayed surgical wound healing, subseque nt encounter [facility] [place] [id number] [phone] Social History Tobacco Use Types Packs/Day Years Used Date Former Smoker Cigarettes 3 5 Quit: 01/01/19 69 Smokeless Tobacco: Never Used Alcohol Use Standard Drinks/Week Comments No 0 (1 standard drink = 0.6 oz pure alcoho l) Sex Assigned at Date Recorded Not on file documented as of this encounter Last Filed Vital Signs Vital Sign Reading Time Taken Comments Blood Pressure 146/61 09/07/2017 1:27 PM EST Pulse 79 09/07/2017 1:27 PM EST Temperature - - Respiratory Rate 18 09/07/2017 1:27 PM EST Oxygen Saturation - - Inhaled Oxygen Concentration - - Weight 81.6 kg (180 lb) 09/07/2017 1:27 PM EST Height 172.7 cm (5' 8) 09/07/2017 1:27 PM EST Body Mass Index 27.37 09/07/2017 1:27 PM EST documented in this encounter Patient Instructions Patient InstructionsAurelia Rivera PA - 09/07/2017 1:00 PM EST Mr. Fatima appears to have adequate perfusion in his right forefoot to expect healing of his surgical wound. However, he continues with severe pain in his right foot related to this surgical wound Simone believe there is also a component of neuropathic pain. Neither of these types of pain are currently controlled and he is unwilling to continue a regular dosing schedule of a lower dose narcotic to see if this would improve his pain management. Therefore, he will see pain management in their clinic on 09/09/17 for further recommendations. We will defer pain management recommendations to them. I will reach out to his VNA nurse and discuss the need for lidocaine at the time of his VAC dressingchanges. I am happy to prescribe topical lidocaine to be infused into the VAC tubing if this does provide relief with VAC dressing changes at home. We will continue the wound VAC changes by the VNA based on the recommendations below. We discussed a referral to an outpatient wound care center. So long as they are regularly checking his Doppler signals in his right foot and our conservative with their debridements then I am agreeableto providing this referral. I am uncertain if he will be able to tolerate wound debridements howeverif he is able to with a topical anesthetic then hopefully this will help to improve the wound tissuequality. It appears that there is granular tissue attempting to appear in the wound base however theamount of slough that is present is prohibiting the progression of this. I will plan to see him back in 2 weeks so long as his foot remain stable and/or improving. However, if there are difficulties with the wound VAC or the wound is deteriorating then he should return for follow up. I have recommended periodic leg elevation if tolerated to help manage edema. He will remain anticoagulated at the direction of cardiology. Wound care orders: Right foot wound - May infuse 1% lidocaine 1-2 mL into VAC tubing prior to VAC dressing removal as needed to manage pain with dressing changes - Apply skin prep to periwound - [...] office. Will reevaluate in 2 weeks unless new/worsening concerns arise - if so, then will recheck in 1 week or sooner if needed. Please do not hesitate to call with questions/concerns. documented in this encounter Progress Notes Aurelia Rivera PA - 09/07/2017 1:00 PM EST This patient returned to the vascular clinic today for a post-operative follow up visit. Mr. Fatima was admitted with a STEMI and underwent [...] angioplasty of his right PT artery. ?? He returned again today for a wound check. He continues with VNA support at home for VAC dressing changes from [facility]. Since his last visit his right forefoot [facility] with each [facility]AC change. However, he continues to have significant pain in his right forefoot and must dangle his leg to control his. However, even with dependency the pain is not relieved entirely. He denies fevers/chills. Heis avoiding weight bearing on his right forefoot as much as possible. He does have Dilaudid 2 mg tablets that were provided for him at discharge to assist with pain management. He cut these in half buttaking a 1 mg dose does not help his pain and he is afraid to take more pain medication because he is concerned that he will become addicted. Therefore, he is suffering through the pain that he is experiencing. Most the time he does have a dull aching pain related to the open wound itself however he also has tingling shooting pain that intermittently occurs. He had trialed gabapentin for this but his reports that he became loopy and the gabapentin was discontinued because of that side effect. He is a follow-up appointment with pain management in 2 days. He questioned his option to see a local wound care center to assist with debridement of the wound. The VNA nurse has also requested an order to infuse lidocaine into the VAC tubing before VAC changes to assist with pain management. PMHx: Past Medical History: Diagnosis Date ??? BPH (benign prostatic hyperplasia) 11/28/2013 ??? CAD (coronary artery disease) ??? Melanoma 2006 mid back ??? Peripheral vascular disease ??? Urinary retention 04/05/2013 SxHx: Past Surgical History: Procedure Laterality Date ??? PRG SOMATOSENSORY TEST, ANY/ALL PER. NERVES, TRUNK OR HEAD 03/28/2013 FACIAL NERVE MONITORING, SETUP performed by Manny Mcknight MD at [facility] MAIN OR ??? PRO AMPUTATION FOOT, TRANSMETATARSAL Right 08/09/2017 AMPUTATION, TRANSMETATARSAL (WRVU 12.71) performed by Yonathan Smith MD at [facility] MAIN OR ??? PRO CABG, ARTERIAL, SINGLE N/A 07/07/2017 @CABG, USING ARTERIAL GRAFT;SINGLE ARTERIAL GRAFT (WRVU 33.75) performed by Yuan Retana MD at [facility] MAIN OR ??? PRO CABG, ARTERY-VEIN, TWO N/A 07/07/2017 @CABG, TWO VENOUS GRAFTS & ARTERIAL GRAFT (WRVU 7.93) performed by Yuan Retana MD at [facility] MAIN OR ??? PRO COLONOSCOPY, REMV LESN, SNARE 01/16/2014 COLONOSCOPY, POLYPECTOMY, REMOVAL LESION BY SNARE performed by Nohemi Jaimes MD at [facility] ENDOSCOPY ??? PRO DRESSING CHANGE UNDER ANESTHESIA Right 08/11/2017 (MSURG) DRESSING CHANGE (FOR OTHER THAN IVAN) UNDER ANES. (WRVU 0.86) performed by Lamar Smith MD at [facility] MAIN OR ??? PRO ENDOSCOPY W/VIDEO-ASST VEIN HARVEST, CABG Right 07/07/2017 ENDOSCOPIC HARVEST VEIN(S) FOR CABG (WRVU 0.31) performed by Yuan Retana MD at [facility] MAIN OR ??? PRO THYROIDECTOMY 03/28/2013 THYROIDECTOMY, TOTAL OR COMPLETE performed by Manny Mcknight MD at [facility] OR Social Hx: Social History Substance Use Topics ??? Smoking status: Former Smoker Packs/day: 3.00 Years: 5.00 Types: Cigarettes Quit date: 07/26/1967 ??? Smokeless tobacco: Never Used ??? Alcohol use No Medications: Medications 09/08/17 1205 Medication Sig Taking? meTOPROLOL succinate (TOPROL-XL) 25 mg Tablet Sustained Release 24 hr Take 25 mg by mouth daily. Yes insulin glargine Solution Inject 15 Units subcutaneously nightly. Yes insulin lispro (HUMALOG) Solution Inject 11 Units subcutaneously 3 times daily (with meals). Yes polyethylene glycol (MIRALAX) 17 gram Powder in Packet Take 17 g by mouth daily as needed. Yes senna (SENOKOT) 8.6 mg Tablet Take 2 tablets by mouth 2 times daily as needed for Constipation. Yes melatonin 3 mg Tablet Take 2 tablets by mouth nightly. Yes HYDROmorphone (DILAUDID) 2 mg Tablet Take 1-2 tablets by mouth every 3 hours as needed for Pain (2mgfor mild - moderate pain 1-6 OR 4mg for severe pain 7-10). Yes LORazepam (ATIVAN) 0.5 mg Tablet Take 1 tablet by mouth every 6 hours as needed. Yes lisinopril (PRINIVIL;ZESTRIL) 2.5 mg Tablet Take 2.5 mg by mouth daily. Yes furosemide (LASIX) 20 mg Tablet Take 2 tablets by mouth daily. Patient taking differently: Take 20 mg by mouth daily. Yes Magnesium Oxide 500 mg Capsule Take 500 mg by mouth 2 times daily. Yes clobetasol (TEMOVATE) 0.05 % Solution Apply 1 Application topically 2 times daily. Yes warfarin (COUMADIN) 2.5 mg Tablet Take 1 tablet by mouth daily. Yes acetaminophen (TYLENOL) 500 mg Tablet Take 2 tablets by mouth every 6 hours as needed for Pain. Yes AMIOdarone (PACERONE) 400 mg Tablet Take 1 tablet by mouth daily. Patient taking differently: Take 200 mg by mouth daily. Yes atorvastatin (LIPITOR) 40 mg Tablet Take 1 tablet by mouth every evening. Yes ACCU-CHEK TERA PLUS TEST STRP Strip 2-3 times daily Yes metFORMIN (GLUCOPHAGE) 850 mg Tablet Take 1 tablet by mouth 2 times daily (with meals). Yes BD INSULIN PEN NEEDLE UF MINI 31 gauge x 3/16 Needle 1 each by Other route 4 times daily. Yes ascorbic acid, vitamin C, (VITAMIN C) 500 mg Tablet Take 500 mg by mouth daily. Winter months only Yes turmeric root extract 500 mg Capsule Take 500 mg by mouth 2 times daily. Yes fish oil-omega-3 fatty acids 1,000 mg Capsule Take 2 g by mouth daily. Yes aspirin 81 mg EC tablet Take 81 mg by mouth every other day. Yes levothyroxine (SYNTHROID) 175 mcg Tablet Take 1 tablet by mouth daily. 1 tablet daily 6 days per week, and 2 tablets 1 day per week. Allergies: Allergies Allergen Reactions ??? Gabapentin Palpitations [...] negative Physical Exam: Vitals: Most Recent Vitals: 09/07/17 1327 BP: 146/61 Pulse: 79 Resp: 18 PainSc: 0 - No pain Gen: No acute distress. HEENT: Normocephalic, atraumatic. No scleral icterus. Neck: Supple, no JVD. Heart: Regular rate and rhythm. Lungs: Regular respiratory rate with no increased work of breathing. Extremities: Right forefoot wound with 90% fixed and loose yellow slough, 10% granulation tissue - 3.4 x 6.6 x 1 cm with 0.6 depth in two areas at the wound base where tendinous material was exposed atmetatarsal positions. No purulence or fluctuance, no bone exposed. No malodor or maceration of periwound. Forefoot less ruborous with remainder of proximal foot/ankle/lower leg [...] toe amputation Right forefoot atheroembolism Recommendations: Mr. Fatima appears to have adequate perfusion in his right forefoot to expect healing of his surgical wound. However, he continues with severe pain in his right foot related to this surgical wound and I believe there is also a component of neuropathic pain. Neither of these types of pain are currently controlled and he is unwilling to continue a regular dosing schedule of a lower dose narcotic to see if this would improve his pain management. Therefore, he will see pain management in their clinic on 09/09/17 for further recommendations. We will defer pain management recommendationsto them. I will reach out to his VNA nurse and discuss the need for lidocaine at the time of his VAC dressingchanges. I am happy to prescribe topical lidocaine to be infused into the VAC tubing if this does provide relief with VAC dressing changes at home. We will continue the wound VAC changes by the VNA based on the recommendations below. We discussed a referral to an outpatient wound care center. So long as they are regularly checking his Doppler signals in his right foot and our conservative with their debridements then I am agreeableto providing this referral. I am uncertain if he will be able to tolerate wound debridements howeverif he is able to with a topical anesthetic then hopefully this will help to improve the wound tissuequality. It appears that there is granular tissue attempting to appear in the wound base however theamount of slough that is present is prohibiting the progression of this. I will plan to see him back in 2 weeks so long as his foot remain stable and/or improving. However, if there are difficulties with the wound VAC or the wound is deteriorating then he should return for follow up. I have recommended periodic leg elevation if tolerated to help manage edema. He will remain anticoagulated at the direction of cardiology. Wound care orders: Right foot wound - May infuse 1% lidocaine 1-2 mL into VAC tubing prior to VAC dressing removal as needed to manage pain with dressing changes - Apply skin prep to periwound - [...] office. Will reevaluate in 2 weeks unless new/worsening concerns arise - if so, then will recheck in 1 week or sooner if needed. Please do not hesitate to call with questions/concerns. documented in this encounter Plan of Treatment Upcoming Encounters Date Type Specialty Care Team Description 02/19/2022 Laboratory Appointment Lab 02/19/2022 Office Visit Cardiology Liz Poole PA [facility] Cardiology Dept [place], [place] [address] (Wo rk) 03/12/2022 Office Visit Cardiology Vitaliy Nobles MD [facility] CARDIOLOGY [place], [place] [address] (Wo rk) Scheduled Referrals Name Type Priority Associated Diagnoses Order S chedule Referral to Wound Outpatient Referral Routine Atheroembolism o f foot, Ordered: Clinic right 09/08/2017 Delayed surgical wound healing, subsequent encounter documented as of this encounter Visit Diagnoses Diagnosis Atheroembolism of foot, right Delayed surgical wound healing, subseque nt encounter documented in this encounter Care Teams Performance Improvement Manager Relationship Specialty Start Date End Date Lovely Vicente MD PCP - General 04/16/[address] [place] [address] documented as of this encounter
--- OUTSIDE RECORDS SUMMARY | 2022-02-06 13:32 | XMS_ITS | Encounter Summary ---
:1945 Author Organization [place] [address] Care Team Providers Name Role Phone Lovely Vicente MD Primary Care Provider Reason for Visit Reason Comments Follow-up Skin Check Encounter Details Date Type Department Care Team Description 01/06/2018 Office Visit Dermatology at [facility] Formantip[facility] nevi; Abdelrahman HOOPER MD History of melanoma; [address] [facility] [place] [phone] [facility] [place], [place] [address] Social History Tobacco Use Types Packs/Day Years Used Date Former Smoker Cigarettes 3 5 Quit: 07/26/18 69 Smokeless Tobacco: Never Used Alcohol Use Standard Drinks/Week Comments No 0 (1 standard drink = 0.6 oz pure alcoho l) Sex Assigned at Date Recorded Not on file documented as of this encounter Progress Notes Ariana Morrison LPN - 01/06/2018 8:15 AM EDT DERMATOLOGY ESTABLISHED PATIENT CLINIC NOTE Date of service: 01/06/2018 Don Fatima : 1945 Provider: Rigoberto Garcia MD PROBLEM: full skin cancer exam SKIN HISTORY: 2006: Melanoma - 0.98 mm with a Ede Level IV, high on his mid back Psoriasis HPI Don Fatima is a 72 y.o. male. Established patient last seen by me on 06/03/17. Presents to the clinic for a full skin caner exam. Patient has no concerning lesions today, nothing new, changing, growing, bleeding on its own or painful. He has peripheral vascular disease and had several tows removed recently. He is healing slowly. He has had significant heart disease. ADR: No Active Allergies CURRENT MEDICATIONS: Current Outpatient Prescriptions Medication Sig Dispense Refill ??? gabapentin (NEURONTIN) 100 mg Capsule Take 100 mg by mouth 5 times daily. ??? AMIOdarone (CORDARONE; PACERONE) 200 mg [...] by mouth daily. Winter months only ??? turmeric root extract 500 mg Capsule Take 500 mg by mouth 2 times daily. ??? fish oil-omega-3 fatty acids 1,000 mg Capsule Take 2 g by mouth daily. ??? aspirin 81 mg EC tablet Take [...] were not examined. Significant skin findings: A. Well-demarcated, round or oval, cordova or brown macules and papules with benign morphology on the trunk and extremities. B. S/P melanoma on mid-back - No evidence of recurrence in scar on the mid back. No adenopathy Occasional crusted waxy papules on trunk - c/w Raquel Ker - not symptomatic No lesions suspicious for BCC or SCC at this time. No pigmented lesion suspicious for melanoma at this time. Procedure Screening Questions: ? No? Yes ?? Defibrillator/Pacemaker?? x ?? Artificial Joints?? x ?? Heart Valves?? x ?? Blood Thinners?? x?? Prophylactic Antibiotics?? x ?? ASSESSMENT/PLAN: A. Multiple Nevi, trunk and extremities Morphology and uniform irregularity in families reassuring for benign nevi. ?? Counseled: Nevi and risks for melanoma arising in a nevus. Recommend regular self-examinations. Answered all questions. Reviewed ABCDEs of melanoma, as below. ?? Return to clinic prn for changes in color, size, shape or thickness or should bleeding or other symptoms occur. Patient agrees to plan. B. History of Melanoma, mid back No evidence of recurrence No cervical, supraclavicular or axillary lymphadenopathy noted. raquel kers On trunk - not symptomatic - Monitor for change or symptoms RTC - 6 months for melanoma skin exam, sooner if needed. Reminder placed in scheduling system. Instructed to call if problems arise. His foot is bandaged from recent surgery. I am documenting this encounter acting as the scribe for and in the presence of Dr. Garcia.: ARIANA MORRISON LPN I, Hudson CastilloNaseem, have performed the documentation for this encounter in the presence of and acting as a scribe for RIGOBERTO GARCIA III, MD. I performed the above scribed service and agree with the accuracy of the documentation in this encounter. Rigoberto Garcia MD Section of Dermatology [facility] documented in this encounter Plan of Treatment Upcoming Encounters Date Type Specialty Care Team Description 02/19/2022 Laboratory Appointment Lab 02/19/2022 Office Visit Cardiology Liz Poole PA [facility] er Cardiology Dept [place], [place] [address] (Wo rk) 03/12/2022 Office Visit Cardiology Vitaliy Nobles MD [facility] CARDIOLOGY [place], [place] [address] (Wo rk) documented as of this encounter Visit Diagnoses Diagnosis Multiple nevi Benign neoplasm of skin, site unspecifie d History of melanoma Personal history of malignant melanoma o f skin Seborrheic keratosis Other seborrheic keratosis documented in this encounter Care Teams Mooner Relationship Specialty Start Date End Date Lovely Vicente MD PCP - General 04/16/[address] [place] [address] documented as of this encounter
--- OUTSIDE RECORDS SUMMARY | 2022-02-06 13:32 | XMS_ITS | Encounter Summary ---
:1945 Author Organization [facility] [place] [address] Care Team Providers Name Role Phone Lovely Vicente MD Primary Care Provider Encounter Details Date Type Department Care Team Description 10/07/2017 Laboratory Appointment Lab 3L [facility] [place] [address] Social History Tobacco Use Types Packs/Day Years [...] [facility] er Cardiology Dept [place], [place] [address] (Wo rk) 03/12/2022 Office Visit Cardiology Vitaliy Nobles MD [facility] CARDIOLOGY [place], [place] [address] (Wo rk) documented as of this encounter Procedures Procedure Name Priority Date/Time Associated Comments Diagnosis PRO-BRAIN NATRIURETIC STAT 10/07/2017 8:48 AM Chronic systo lic Results for this PEPTIDE EDT heart failure procedure are in the results section. BASIC METABOLIC PANEL STAT 10/07/2017 8:48 AM Chronic systo lic Results for this (NON-FASTING) EDT heart failure procedure are in the results section. documented in this encounter Results (ABNORMAL) Basic Metabolic Panel (non-fasting) (10/07/2017 8:48 AM EDT) P athologist Signature Glucose Lvl 99 65 - 199 [facility] mg/dL [facility] Comment: Diabetes: >=200 mg/dL plus symp toms BUN 27 (H) 10 - 20 mg/dL [facility] Creatinine 1.07 0.80 - 1.50 mg/dL [facility] Sodium 143 135 - 145 mmol/L [facility] Potassium 4.7 3.5 - 5.0 mmol/L [facility] Comment: Please note: ??Patients with WBC >100,00 0 may have falsely elevated Potassium levels. ??For accurate Potassium quantif ication in these patients send serum separator tube (gold top) for subsequent determinations. ??Contact the Clinical Chemistry Laboratory if there are any qu estions. Chloride 102 98 - 107 mmol/L [facility] CO2 28 22 - 31 mmol/L [facility] Anion Gap 13 5 - 15 mmol/L [facility] Calcium 8.4 (L) 8.5 - 10.5 mg/dL [facility] Estimated GFR >60 >=60 [facility] Comment: The reported eGFR should be multiplied b y 1.2 for patients. The MDRD is not an appropriate measure o f renal function for patients with body mass extremes or in patients with acute kidney failure. [email or web address] [email or web address] Specimen Anatomical Collection Method Collection Time Receive d Time (Source) Location / / Volume Laterality Blood specimen 10/07/2017 8:48 AM 018 8:50 (specimen) EDT AM EDT Resulting Agency Comment Spec In Lab Danette Maxwell APRN CHEMISTRY ORDERABLES Performing Organization Address City/State/[place] [address] (ABNORMAL) pro-Brain Natriuretic Peptide (10/07/2017 8:48 AM EDT) P athologist Signature ProBNP 1,170 (H) <=125 [facility] pg/mL [facility] Specimen Anatomical Collection Method Collection Time Receive d Time (Source) Location / / Volume Laterality Blood specimen 10/07/2017 8:48 AM 018 8:50 (specimen) EDT AM EDT Resulting Agency Comment Spec In Lab Danette Gomes Linton GERICARE AIDE CHEMISTRY ORDERABLES Performing Organization Address City/State/[place] [address] documented in this encounter Visit Diagnoses Diagnosis Chronic systolic heart failure documented in this encounter Care Teams Database Designer Relationship Specialty Start Date End Date Lovely Vicente MD PCP - General 04/16/[address] [place] [address] documented as of this encounter
--- OUTSIDE RECORDS SUMMARY | 2022-02-06 13:32 | XMS_ITS | Encounter Summary ---
:1945 Author Organization [facility] [place] [address] Care Team Providers Name Role Phone Lovely Vicente MD Primary Care Provider Reason for Referral Diagnostic Test (Routine) - Closed Specialty Diagnoses / Procedures Referred By Contact Refer red To Contact Cardiology Diagnoses Ischemic cardiomyopathy Acute on chronic systolic congestive heart failure Danette Maxwell APRN [facility] Non-Inv Card Lab Procedures Echocardiogram Transthoracic(Leb) [facility] [place] [address] [place] [address] Referral ID Status Reason Start Date Expiration Date Visits V isits Requested Authorized [id number] Closed Specialty 08/30/2017 08/30/2018 1 1 Service Requested Encounter Details Date Type Department Care Team Description 08/26/2017 Office Visit Cardiology at [facility] Danette Maxwell Ischemic cardiomyopathy; [facility] STACIE Gomes Acute on chronic systolic congestive hea rt failure ; Drive [facility] ASCVD (arteriosclerotic card iovascular disease); [place], [place] PAF (paroxysmal atrial fibrillation); [id number] CARDIOLOGY PAD (peripheral artery disease) [phone] [place], [place] [address] Social History Tobacco Use Types Packs/Day Years Used Date Former Smoker Cigarettes 3 5 Quit: 07/26/18 69 Smokeless Tobacco: Never Used Alcohol Use Standard Drinks/Week Comments No 0 (1 standard drink = 0.6 oz pure alcoho l) Sex Assigned at Date Recorded Not on file documented as of this encounter Last Filed Vital Signs Vital Sign Reading Time Taken Comments Blood Pressure 127/57 08/26/2017 3:29 PM EST Pulse 79 08/26/2017 3:29 PM EST Temperature - - Respiratory Rate - - Oxygen Saturation 100% 08/26/2017 3:29 PM EST Inhaled Oxygen Concentration - - Weight 81.9 kg (180 lb 8 oz) 08/26/2017 3:29 PM EST Height 172.7 cm (5' 8) 08/26/2017 3:29 PM EST Body Mass Index 27.44 08/26/2017 3:29 PM EST documented in this encounter Progress Notes Danette Maxwell APRN - 08/26/2017 3:20 PM EST ID and CC: Don Fatima is a [...] painful and swollen right foot right d/t [employer] 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 He states that the pain is severe and made worse with rest; the pain is relieved by weight bearing and walking. He states that his foot has been painful and gradually swellingsince he was discharged home after his CABG. July 30, 2017 was seen by the pain clinic and started on Gabapentin ?? Last visit: 08/04/2017. Was in a great deal of pain and was awaiting surgical procedure to amputate 1st, 2nd and 3rd toes of right foot. Increased his lasix to 40 mg for hypervolemia and elevated proBNP. Gabapentin was stopped due to confusion. Interim events: Hospitalized from 08/06/2017 to 08/16/2017 Hospital course: Pt admitted, started on IV antibx. Taken to OR for amputation and returned to floor for postop monitoring. Taken to IR: Intervention: Balloon angioplasty of R PT with Eleazar 2.5x80. Completion angiogram??demonstrated: Improved flow through the R PT without evidence of dissection or extravasation. Small residual stenosis at the origin of the R plantar artery. R peroneal unchanged. Reconstitution of the R AT and R DP on the foot via collaterals. Pt re-admitted to floor. ?? Today: Denies chest pain. No NTG use No SOB Not sleeping well, but no PND or orthopnea Weight is down Appetite good Denies lightheadedness or dizziness. No syncope Denies abdominal distention. Has some left leg swelling > right ?? Patient Active Problem List ?? Diagnosis [...] Medications These changes are accurate as of 08/26/17 11:59 PM. If you have any questions, ask your nurse or doctor. Continued medications with new dosing Dose Details AMIOdarone 400 mg Tab Commonly known as: PACERONE Take 1 tablet by mouth daily. What changed: how much to take 400 mg Quantity: 30 tablet Refills: 0 furosemide 20 mg Tab Commonly [...] 1000 mg Quantity: 30 tablet Refills: 1 amoxicillin-clavulanate 875-125 mg Tab Commonly known as: AUGMENTIN Take 1 tablet by mouth 2 times daily for 14 days. 1 tablet Quantity: 20 tablet Refills: 0 aspirin 81 mg Tbec Take [...] SYNTHROID Take 1 tablet by mouth daily. 175 mcg Quantity: 90 tablet Refills: 3 lisinopril 2.5 mg Tab [...] 17 g Quantity: 14 each Refills: 0 senna 8.6 mg Tab Commonly known as: SENOKOT Take 2 tablets by mouth 2 times daily as needed for Constipation. 2 tablet Quantity: 60 tablet Refills: 11 turmeric root extract 500 mg Cap Take 500 mg by mouth 2 times daily. 500 mg Refills: 0 vitamin C 500 mg Tab Take 500 mg by mouth daily. Winter months only Generic drug: ascorbic acid (vitamin C) 500 mg Refills: 0 warfarin 2.5 mg Tab Commonly known as: COUMADIN Take 1 tablet by mouth daily. 2.5 mg Refills: 0 STOPPED Medications lidocaine 5 % Ptmd Commonly known as: LIDODERM Stopped by: Danette Maxwell APRN meTOPROLOL tartrate 25 mg Tab Commonly known as: LOPRESSOR Stopped by: Danette Maxwell APRN ?? Allergies: Review of patient's allergies indicates no known allergies. ?? Heart Failure Management: Yes/No No?/Discontinued/Why Beta chadwick Yes Metoprolol tartrate 25 mg bid KIRSTIN/ARB Yes Lisinopril 10 mg daily Spironolactone No K+ > 5.0 today AFIB? Post-op ?? Anticoagulated Yes Coumadin Device No Will repeat echo at 3 months and if not > 35%, will refer to EP ?? Interval ROS: Patient denies cough, fever, PND, orthopnea, activity intolerance, leg swelling, change in bowel habit, presyncope or syncope. ?? Physical Exam: BP 127/57 Pulse 79 Ht 172.7 cm (5' 8) Wt 81.9 kg (180 lb 8 oz) SpO2 100% BMI 27.44 kg/m2 ?? General: NAD, able to sit in chair and talk HEENT: No JVD or carotid abnormalities Lungs: Clear to A+P Cor: RR, normal S1, S2. PMI not displaced. No murmur or gallop. M/S: Sternal incision: dry, well approximated, no erythema Abd: soft, no L/S/K enlargement or bruits. Ext: 1-2+ edema. Right foot bandaged. Clean and dry.? Lab data: Recent Labs 08/26/17 1400 NA 140 K 4.8 CL 98 CO2 28 BUN 20 CREATININE 1.17 GLUCOSE 98 ProBNP Date Value Ref Range Status 08/26/2017 2373 (H) <=125 pg/mL Final 08/04/2017 3133 (H) <=125 pg/mL Final 07/05/2017 1598 (H) <=125 pg/mL Final Lab Results Component Value Date ?? WBC 15.0 (H) 07/27/2017 ?? RBC 3.59 (L) 07/27/2017 ?? HGB 10.3 (L) 07/27/2017 ?? HCT 32.6 (L) 07/27/2017 ?? MCV 90.8 07/27/2017 ?? MCH 28.7 07/27/2017 ?? MCHC 31.6 (L) 07/27/2017 ?? PLATELET 322 07/27/2017 ?? RDWCV 14.7 (H) 07/27/2017 ? Cardiac studies: 07/08/2017 Echocardiogram: SUMMARY: ? 1. Intraoperative AVELINO performed at the request of Dr. Mike for the diagnosis and evaluation of hemodynamics, overall cardiac function, and valvular pathologies as indicated. AVELINO probe was passed atraumatically after induction and removed in a similar fashion before emergence. 2. Pre-Bypass: LV was moderatley to severely depressed. ??EF of 20-30% with RWMA noted as on TTE. ??The IABP was in good position. ??AVELINO was used to facilitate CS cannulation. 3. Post-Bypass: Global LV and RV function were improved on inotropes. LVEF is 40 %. There is no change in valvular pathologies. There is no evidence of aortic dissection post decannulation. WHile some global hypokinesis is presetn, all segments showed some inprovement with the mid inferior and anteriro segments likely still more severely dysfunctional. ??LV diastolic volume is ??improved from preop as well as global systolic function. 4. The IABP was in good position, and no evidence of aotic dissection was imaged ?? Assessment: Mr. Fatima appears euvolemic today. His weight and proBNP are down. He does have swelling of his lower extremities but no JVD. He is taking Lasix 20 mg daily. I will not change that dose today. 1. ASCVD Continue ASA, BB and statin Stable No chest pain ?? 2. Ischemic cardiomyopathy On BB and KIRSTIN-I No spironolactone as K+ has been > 5.0 ?? 3. Systolic heart failure ACC/AHA stage C, NYHA FC II-III proBNP is down, weight down Continue Lasix 20 mg daily ?? 4. HTN BP well controlled on current regime (127/57 today) ?? 5. Hx of hyperkalemia K+ 4.8 today Given information regarding low potassium diet 6. PAF On coumadin INR 3.5 managed by PCP 7. PAD/critical limb ischemia 08/06/2017: Right 1st, 2nd, 3rd toe amputation 08/11/2017: Left??femoral arterial access, RLE??angiogram, Balloon angioplasty of R PT with Eleazar 2.5 x 80 ? Plan: 1. A review of the active management and working diagnosis(es) was conducted. 2. The patient's medication list was updated and new Rxs given as needed. 3. Question were answered regarding: Lab results and treatment plan going forward 4. The following labs or other testing advised: labs and echo with next visit 5. Heart Failure Clinic follow up scheduled for: September Danette Maxwell APRN 08/26/2017 documented in this encounter Plan of Treatment Upcoming Encounters Date Type Specialty Care Team Description 02/19/2022 Laboratory Appointment Lab 02/19/2022 Office Visit Cardiology Liz Poole PA [facility] er Dr Cardiology Dept [place], [place] [address] (Wo rk) 03/12/2022 Office Visit Cardiology Vitaliy Nobles MD [facility] CARDIOLOGY [place], [place] [address] (Wo rk) documented as of this encounter Results ECHOCARDIOGRAM COMPLETE W CONTRAST (10/07/2017 10:23 AM EDT) athologist Signature EF 45 [facility] Specimen (Source) Anatomical Location Collection Method / Collectio n Time Received Time / Laterality Volume 10/07/2017 Narrative [facility] - 10/07/2017 11:13 AM ED T Procedure: ?Transthoracic Echocardiogram Patient: ?NATALYA Mccollum ? (Age): 1945(72y) Med Rec#: ? [id number] ?Sex: ?M ? Site Loc: ? [facility] ?Ht / Wt: ??173(cm)/82(kg) Pt. Loc: ?Echo Lab ?BSA: ?1.96 Study Date: ?? 10/07/2017 ?Pt. Type: Outpatient Tape: ? Referring: Danette Maxwell Reading: Iker Cuevas ([id number]) It Infrastructure Specialist: Yonathan Bocanegra Diagnosis: *ICD-10-PCS Ischemic cardiomyopathy (I2 [...] gera ears normal in size. ?There is less [...] E-wave Vmax ?1.2 ?m/sec ? MV deceleration [id number] ?msec ? MV A-wave Vmax ?1 ?m/sec [...] ? Mid-Inferior ?Hypokinetic ? Mid-Inferoseptal ?Hypokinetic ? [place]-Septal ? Akinetic ? [place]-Anterior ? Hypokinetic ? [place]-Lateral ?Hypokinetic ? [place]-Inferior ? Hypokinetic ? [place]-Tip ?Akinetic ? This report has been electronically sign ed by: _ Iker Cuevas M.D. ? 10/07/2017 11:12:34 Images reviewed and interpretation verif ied [facility] Cardiac Ultrasound Laboratory Procedure Note Iker Cuevas MD - 10/07/2017Formatti ng of this note might be different from the original. Procedure: Transthoracic Echocardiogram Patient: NATALYA MCBRIDE(Age): [birth year]72y) Med Rec#: [id number] Sex: M Site Loc: [facility] Ht / Wt: 173(cm)/82(kg) Pt. Loc: Echo Lab BSA: 1.96 Study Date: 10/07/2017 Pt. Type: Outpati ent Tape: Referring: Danette Maxwell Reading: Iker Cuevas ([id number]) It Infrastructure Specialist: Yonathan Bocanegra Diagnosis: *ICD-10-PCS Ischemic cardiomyopathy (I2 [...] MV E-wave Vmax 1.2 m/sec MV deceleration [id number] msec MV A-wave Vmax 1 m/sec MV [...] Akinetic Mid-Posterolateral Hypokinetic Mid-Inferior Hypokinetic Mid-Inferoseptal Hypokinetic [place]-Septal Akinetic [place]-Anterior Hypokinetic [place]-Lateral Hypokinetic [place]-Inferior Hypokinetic [place]-Tip Akinetic This report has been electronically sign ed by: _ Iker Cuevas M.D. 10/07/2017 11:12 :34 Images reviewed and interpretation elvie hwang [facility] Cardiac Ultrasound Laboratory Danette aMxwell APRN ECHO ORDERABLES Performing Organization Address City/State/ZIP Code Phon e Number [facility] Basic Metabolic Panel (non-fasting) (08/26/2017 2:00 PM EST) P athologist Signature Glucose Lvl 98 65 - 199 [facility] mg/dL [facility] Comment: Diabetes: >=200 mg/dL plus symp toms BUN 20 10 - 20 mg/dL [facility] Creatinine 1.17 0.80 - 1.50 mg/dL [facility] Sodium 140 135 - 145 mmol/L [facility] Potassium 4.8 3.5 - 5.0 mmol/L [facility] Comment: Please note: ??Patients with WBC >100,00 0 may have falsely elevated Potassium levels. ??For accurate Potassium quantif ication in these patients send serum separator tube (gold top) for subsequent determinations. ??Contact the Clinical Chemistry Laboratory if there are any qu estions. Chloride 98 98 - 107 mmol/L [facility] CO2 28 22 - 31 mmol/L [facility] Anion Gap 14 5 - 15 mmol/L [facility] Calcium 9.1 8.5 - 10.5 mg/dL [facility] Estimated GFR >60 >=60 [facility] Comment: The reported eGFR should be multiplied b y 1.2 for patients. The MDRD is not an appropriate measure o f renal function for patients with body mass extremes or in patients with acute kidney failure. http://Evisors/DHnkdep http://Evisors/DHMCnkf Specimen Anatomical Collection Method Collection Time Receive d Time (Source) Location / / Volume Laterality Blood specimen 08/26/2017 2:00 PM 018 2:15 (specimen) EST PM EST Resulting Agency Comment Spec In Lab Danette Eliseo Hans QUINONES CHEMISTRY ORDERABLES Performing Organization Address City/State/[place] [address] (ABNORMAL) pro-Brain Natriuretic Peptide (08/26/2017 2:00 PM EST) P athologist Signature ProBNP 2,373 (H) <=125 [facility] Specimen Anatomical Collection Method Collection Time Receive d Time (Source) Location / / Volume Laterality Blood specimen 08/26/2017 2:00 PM 018 2:15 (specimen) EST PM EST Resulting Agency Comment Spec In Lab Danette Gomes Hans QUINONES CHEMISTRY ORDERABLES Performing Organization Address City/State/[place] [address] documented in this encounter Visit Diagnoses Diagnosis Ischemic cardiomyopathy Other specified forms of chronic ischemi c heart disease Acute on chronic systolic congestive hea rt failure Acute on chronic systolic heart failure ASCVD (arteriosclerotic cardiovascular d isease) Unspecified cardiovascular disease PAF (paroxysmal atrial fibrillation) Atrial fibrillation PAD (peripheral artery disease) Peripheral vascular disease, unspecified Ischemic cardiomyopathy Other specified forms of chronic ischemi c heart disease Acute on chronic systolic congestive hea rt failure Acute on chronic systolic heart failure documented in this encounter Care Teams Cold Food 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
--- OUTSIDE RECORDS SUMMARY | 2022-02-06 13:33 | XMS_ITS | Encounter Summary ---
:1945 [place] [address] Care Team Providers Name Role Phone Lovely Vicente MD Primary Care Provider Reason for Visit Auth/Cert Specialty Diagnoses / Procedures Referred By Contact Refer red To Contact Diagnoses Critical lower limb ischemia CELLULITIS RT FOOT Procedures EMERGENCY Referral ID Status Reason Start Date Expiration Date Visits Requ ested Visits Authorized [id number] 1 1 Encounter Details Date Type Department Care Team Description 08/06/2017 - Hospital Encounter 5 Yonathan Oneill lower limb ischemia; 08/16/2017 Su Flores MD Ischemic foot Hospital [facility] [address] [id number] [phone] Social History Tobacco Use Types Packs/Day Years Used Date Former Smoker Cigarettes 3 5 Quit: 07/26/18 69 Smokeless Tobacco: Never Used Alcohol Use Standard Drinks/Week Comments No 0 (1 standard drink = 0.6 oz pure alcoho l) Sex Assigned at Date Recorded Not on file documented as of this encounter Last Filed Vital Signs Vital Sign Reading Time Taken Comments Blood Pressure 115/70 08/16/2017 7:35 AM EST Pulse 81 08/16/2017 4:09 AM EST Temperature 36.9 ??C (98.4 ??F) 08/16/2017 7:35 AM EST Respiratory Rate 18 08/16/2017 7:35 AM EST Oxygen Saturation 98% 08/16/2017 7:35 AM EST Inhaled Oxygen Concentration - - Weight 89.5 kg (197 lb 4.8 oz) 08/14/2017 6:22 AM EST Height 175.3 cm (5' 9) 08/10/2017 6:43 AM EST Body Mass Index 29.14 08/10/2017 6:43 AM EST documented in this encounter Discharge Summaries Viry Starkey MD - 08/16/2017 11:50 AM EST Inpatient - Discharge Summary Patient Name: Gregory Hoang Patient Age: 72 y.o. Birthdate: 1945 Admit date: 08/06/2017 Discharge date and time: 08/16/2017 Attending Physician: Yonathan Smith MD Discharge Diagnoses (Hospital Problems) and Secondary Diagnoses (Chronic Problems): Active Hospital Problems Diagnosis ??? Critical lower limb ischemia Resolved Hospital Problems Diagnosis Date Resolved No resolved problems to display. Active Non-Hospital Problems Diagnosis ??? ASHD (arteriosclerotic heart disease) NSTEMI 3VCAD Ischemic Cardiomyopathy Elevated LVEDP ??? Cardiomyopathy, ischemic LVEF=29% ??? Hypertension, accelerated, with systolic CHF, 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 Elevated HTN, poorly responsive to NTG Nipride initiated ??? STEMI (ST elevation myocardial infarction) ??? Carpal tunnel syndrome ??? Hx of malignant melanoma ??? Hx of thyroid cancer ??? Leg cramps ??? Osteoarthrosis ??? Ischemic foot ??? Dependence on continuous positive airway pressure ventilation ??? Gastroesophageal reflux disease ??? Hearing impaired ??? Hyperlipidemia ??? Hypomagnesemia ??? Peripheral neuropathy ??? Postoperative retention of urine ??? BPH (benign prostatic hyperplasia) ??? Atypical nevus of abdominal wall ??? Urinary retention ??? MARIA VICTORIA (obstructive sleep apnea) on CPAP ??? Goiter ??? Seborrheic psoriasis- scalp and ingtergluteal area ??? Skin lesion of chest wall ??? Melanoma Operations/Major Procedures: 08/06/2017: Right 1st, 2nd, 3rd toe amputation 08/11/2017: Left femoral arterial access, RLE angiogram, Balloon angioplasty of R PT with Eleazar 2.5x80 History of Presentation: 72 y.o.??male??with history of HTN, HLD, DMII, MARIA VICTORIA (on CPAP), who was recently admitted with STEMI and underwent CABGx3 (07/07/2017). That hospitalization was complicated by Afib with RVR and he was discharged on coumadin. He represented to the ED on 07/20/2017 with RLE pain and pale forefoot and was found to have subtherapeutic INR (1.5) in addition to a pseudoaneurysm of his R BUSINESS CONTINUITY CONSULTANT and bilateral anterior tibial artery occlusions. Patient was discharged to home on lovenox brdige to coumadin with the understanding that his toes would demarcate naturally or he could proceed with amputation of his toes. The pt now has blistering at the forefoot and cyanotic 1st and 2nd toes. In addition he has some blistering at the achilles heel. Pain is severe (always > 8/10) despite narcotics. He is not able to sleep at night. No fevers or chills. Can walk from room to room at home w a cane. Pt is being admitted from clinic for demarcation of toes, blistering at heels, and erythema of foot. Hospital Course: Pt admitted, started on IV antibx. Taken to OR for amputation and returned to floorfor postop monitoring. Taken to IR: Intervention: Balloon angioplasty of R PT with Eleazar 2.5x80. Completion angiogram demonstrated: Improved flow through the R PT without evidence of dissection or extravasation. Small residual stenosis at the origin of the R plantar artery. R peroneal unchanged. Reconstitution of the R AT and R DP on the foot via collaterals. Pt re-admitted to floor. Pt's recovery went well with good PO intake, adequate output following bob removal and pain relieved with PO meds. Pt worked with PT who recommend home with off-loading shoe (NWB when possible and heel WB for pivot transfers) and walker. Pt also acquired a wheelchair for home and had a temporary ramp built. Pt's toe amp site partially closed postop and VAC dressing applied, pt tolerated bedside dressing changes with PO meds. Last dressing change 08/16/2017. Pt is d/c'd on 2-week course PO Augmentinfor amp site wound. Pt is medically cleared for d/c to rehab. Pt resumed home dose Coumadin for Afib, 2.5mg PO daily, INR 2.3 at d/c. Important Studies and Lab Data: Labs: Lab Results Component Value Date WBC 7.3 08/16/2017 RBC 3.36 (L) 08/16/2017 HGB 9.7 (L) 08/16/2017 HCT 30.3 (L) 08/16/2017 MCV 90.2 08/16/2017 MCH 28.9 08/16/2017 MCHC 32.0 08/16/2017 PLATELET 282 08/16/2017 RDWCV 16.5 (H) 08/16/2017 Coags Lab Results Component Value Date INR 2.3 (H) 08/16/2017 PT 25.2 (H) 08/16/2017 Studies: 08/13/2017 JULIAN Findings: Right ?Pressure (mm Hg) ?? JULIAN ??Waveform ?TBI ?? Brachial Artery ?138 ? Dorsalis Pedis (Ankle) Artery ?132 ? 0.94 ??Twiggs-Biphasic ? Posterior Tibial (Ankle) Artery ??154 ? 1.10 ??Twiggs-Biphasic ? Fourth Toe ? 67 ?0.48 ?? Left ? Pressure (mm Hg) ?? JULIAN ??Waveform ?? TBI ?? Brachial Artery ?140 ? Dorsalis Pedis (Ankle) Artery ?151 ? 1.08 ??Biphasic ? Posterior Tibial (Ankle) Artery ??143 ?1.02 ??Biphasic ? Great Toe ?54 ?0.39 ?? Interpretation: RIGHT: Mild lower extremity arterial occlusive disease. Toe- brachial index substantially lower than ankle-brachial index indicates presence of moderate arterial occlusive disease in thefoot. Significant deterioration in Doppler waveforms compared to previous exam. LEFT: Mild lower extremity arterial occlusive disease. Toe-brachial index substantially lower than ankle-brachial index indicates presence of moderate arterial occlusive disease in the foot. Significant deterioration in Doppler waveforms compared to previous exam. No significant change in Toe index. Comment: The ankle pressures are falsely elevated compared to the Doppler waveforms, Thus, disease severity is based on Doppler waveforms only as there is addition small vessel disease in the foot. Discharge Conditions/Prognosis: Good Discharge to: [facility] Rehab Discharge Medications: Your Medications New Medications Dose Details amoxicillin-clavulanate 875-125 mg Tab Commonly known as: AUGMENTIN Take 1 tablet by mouth 2 times daily for 14 days. 1 tablet Quantity: 20 tablet Refills: 0 insulin glargine Soln Inject 15 Units subcutaneously nightly. Replaces: LANTUS SOLOSTAR 100 unit/mL (3 mL) pen 15 Units Quantity: 10 mL Refills: 12 insulin lispro Soln Commonly known as: humaLOG Inject 11 Units subcutaneously 3 times daily (with meals). Replaces: insulin lispro Inpn 11 Units Quantity: 10 mL Refills: 12 melatonin 3 mg Tab Take 2 tablets by mouth nightly. 6 mg Refills: 0 polyethylene glycol 17 gram Pwpk Commonly known as: MIRALAX Take 17 g by mouth daily as needed. 17 g Quantity: 14 each Refills: 0 senna 8.6 mg Tab Commonly known as: SENOKOT Take 2 tablets by mouth 2 times daily as needed for Constipation. 2 tablet Quantity: 60 tablet Refills: 11 Continued medications with new dosing Dose Details HYDROmorphone 2 mg Tab Commonly known as: DILAUDID Take 1-2 tablets by mouth every 3 hours as needed for Pain (2mg for mild - moderate pain 1-6 OR 4mg for severe pain 7-10). What changed: - how much to take - when to take this - reasons to take this - additional instructions 2-4 mg Quantity: 30 tablet Refills: 0 lidocaine 5 % Ptmd Commonly known as: LIDODERM Apply 1 patch onto the skin daily. (leave on for 12 hours and remove for 12 hours) What changed: additional instructions Quantity: 30 patch Refills: 0 LORazepam 0.5 mg Tab Commonly known as: ATIVAN Take 1 tablet by mouth every 6 hours as needed. What changed: when to take this 0.5 mg Quantity: 30 tablet Refills: 0 Continued medications, unchanged Dose Details ACCU-CHEK TERA PLUS TEST STRP Strp 2-3 times daily Generic drug: blood sugar diagnostic strips Quantity: 100 each Refills: 1 acetaminophen 500 mg Tab Commonly known as: TYLENOL Take 2 tablets by mouth every 6 hours as needed for Pain. 1000 mg Quantity: 30 tablet Refills: 1 AMIOdarone 400 mg Tab Commonly known as: PACERONE Take 1 tablet by mouth daily. 400 mg Quantity: 30 tablet Refills: 0 aspirin 81 mg Tbec [...] by mouth daily. 2 g Refills: 0 furosemide 20 mg Tab Commonly known as: LASIX Take 2 tablets by mouth daily. 40 mg Quantity: 60 tablet Refills: 3 levothyroxine 175 mcg Tab Commonly known as: [...] mg Quantity: 60 tablet Refills: 12 meTOPROLOL tartrate 25 mg Tab Commonly known as: LOPRESSOR Take 1 tablet by mouth 2 times daily. 25 mg Quantity: 180 tablet Refills: 3 turmeric root extract 500 mg Cap Take 500 mg by mouth 2 times daily. 500 mg Refills: 0 vitamin C 500 mg Tab Take 500 mg by mouth daily. Winter months only Generic drug: ascorbic acid (vitamin C) 500 mg Refills: 0 warfarin 2.5 mg Tab Commonly known as: COUMADIN Take 1 tablet by mouth daily. 2.5 mg Refills: 0 STOPPED Medications cefUROXime 250 mg Tab Commonly known as: CEFTIN cephalexin 500 mg Cap Commonly known as: KEFLEX fluocinolone acetonide 0.01 % Soln Commonly known as: SYNALAR insulin lispro Inpn Commonly known as: humaLOG KwikPen Replaced by: insulin lispro Soln LANTUS SOLOSTAR 100 unit/mL (3 mL) pen Generic drug: insulin glargine Replaced by: insulin glargine Soln traMADol 50 mg Tab Commonly known as: ULTRAM Updated Allergies/ADRs: Allergies Allergen Reactions ??? Gabapentin Palpitations Dizziness, falls (on 100mg bid) Follow-up Recommendations for Providers: Please change wound vac dressing on Mon/Wed/Fri schedule orevery 2-3 days. Pt can shower on dressing change days; remove dressing, shower allowing soap and water to cleanse the wound, pat dry and replace dressing. Wet-to-dry dressing can be used in case of vacmalfunction or for clinic apts. Instructions Given to Patient at Discharge: Patient Instructions Patient Instructions You were admitted on 08/06/2017 and had a right 3-toe amputation to remove unhealthy tissue and a right leg balloon angioplasty to get more blood flow to your leg. All of this went very well. Dr. Smith will want you to be seen in 1- 2 weeks for a wound check. All of this will be ordered and sent to you in the mail. If for some reason you don't receive this within a week or so please call our office as your followup is very important. Anticoagulation: on coumadin for Afib. Goal INR 2-3. At discharge INR=2.3 Call your doctor if: Any fever, any drainage, redness or separation of your incision, increased painor change in temperature of your leg Activity level: up as tolerated but watch for swelling of your leg. Manage this with leg elevation, toes higher than your nose and also can use acewrapping from your foot to below knee, tape in place, rewrap as necessary. Diet: resume your previous regular diet Driving: none right now with pain medication use Shower/Bath: showering is fine on dressing change days or with right foot completely out of water stream Wound Care: The nurses will change wound vac dressing on Mon/Wed/Fri schedule or every 2-3 days. Youcan shower on dressing change days; remove dressing, shower allowing soap and water to cleanse the wound, pat dry and replace dressing. Wet-to-dry dressing can be used in case of vac malfunction or forclinic apts. For any problems or questions please call [phone] ZELDA Smith, bird raiser Nurse Clinician For issues on weeknights after 5pm and weekends please call [phone] and ask for the Vascular [employer] picket labor union. General Instructions None Future Appointments and Orders Future Appointments Provider Department Dept Phone 08/26/2017 4:00 PM Aurelia Rivera PA [facility] [phone] 09/07/2017 3:00 PM LAB, THREE L Lab 3L [facility] [phone] 09/07/2017 4:00 PM Luz Prescott MD [facility] [phone] 09/09/2017 8:00 AM Barbra Soares APRN [facility] [phone] Please bring a list of your current medications and dosage amounts. Discharge References/Attachments: Discharge References/Attachments None Electronically Signed By: YISSEL QUINTERO RN 08/16/2017 documented in this encounter Discharge Instructions Discharge InstructionsYissel Quintero RN - 08/16/2017 10:55 AM EST Patient InstructionsYissel Quintero RN - 08/11/2017 8:30 AM EST Patient Instructions You were admitted on 08/06/2017 and had a right 3-toe amputation to remove unhealthy tissue and a right leg balloon angioplasty to get more blood flow to your leg. All of this went very well. Dr. Smith will want you to be seen in 1- 2 weeks for a wound check. All of this will be ordered and sent to you in the mail. If for some reason you don't receive this within a week or so please call our office as your followup is very important. Anticoagulation: on coumadin for Afib. Goal INR 2-3. At discharge INR=2.3 Call your doctor if: Any fever, any drainage, redness or separation of your incision, increased painor change in temperature of your leg Activity level: up as tolerated but watch for swelling of your leg. Manage this with leg elevation, toes higher than your nose and also can use acewrapping from your foot to below knee, tape in place, rewrap as necessary. Diet: resume your previous regular diet Driving: none right now with pain medication use Shower/Bath: showering is fine on dressing change days or with right foot completely out of water stream Wound Care: The nurses will change wound vac dressing on Mon/Wed/Fri schedule or every 2-3 days. Youcan shower on dressing change days; remove dressing, shower allowing soap and water to cleanse the wound, pat dry and replace dressing. Wet-to-dry dressing can be used in case of vac malfunction or forclinic apts. For any problems or questions please call [phone] ZELDA Smith, bird raiser Nurse Clinician For issues on weeknights after 5pm and weekends please call [phone] and ask for the Vascular [employer] picket labor union. documented in this encounter Medications at Time [...] tablet daily. documented as of this encounter Progress Notes Shirin Wolf, RN - 08/16/2017 11:14 AM EST Office of Care Management Discharge Note Patient Destination: [facility] ([facility] [address] [place] [address] Transportation: with (at bedside) Time of Discharge: by 12 noon Level of Care: swing Patient Aware: yes Family Notified: yes Md to call report to: Yissel Quintero INVASIVE CARDIOLOGIST already called RN to call report to: [phone] Shirin Wolf Office of Care Management Pager [phone] Shirin Wolf RN - 08/16/2017 10:50 AM EST [facility] has offered pt swing bed. Pt and accept bed. will transport via car. INVASIVE CARDIOLOGIST Yissel Quintero aware; d/c paperwork will be completed by 12 noon. [facility] requests pt arrival by 1400 today; INVASIVE CARDIOLOGIST, RN, and family aware. INVASIVE CARDIOLOGIST called [facility] and was told that they prefer pt to arrive with wound vac dressing applied but clamped. INVASIVE CARDIOLOGIST applied new wound vac dressing. RN has [facility] number to call report. PASSR completed; INVASIVE CARDIOLOGIST paged to request provider signature in highlighted space. Indigo from [facility] notified via email that home wound vac now cancelled; [facility] has picked up from room and order cancelled. Packet started and provided to unit coordinator. Medicare important message explained to patient, patient signed. Copy provided to patient and signature page to OCM for inclusion in pt EMR. Radha Georges - 08/16/2017 10:34 AM EST Office of Care Management/Web Worker Patient Name: Gregory Hoang : 1945 Patient has been offered a swing bed at [facility]. The patient will be transported by private transportation. No MD to MD report necessary Please call Nursing Report to [phone], ask for pen tender. Info to accompany patient: Narcotic Prescriptions Copies of Medication Administration Records and IV sheets for past 10 days. Plan: Web Worker will be available to the patient and Network And Threat Support Specialist-RN and/or Sfdc Technical Architect for further assistance. Patient will be discharged to: [place] [phone] Radha Powers, Web Worker Mira Black, VAMSI - 08/15/2017 10:05 PM EST [address] Flores to ask if he wanted to hold metoprolol dose. BP 95/58. OK to hold this dose Courtney Brito - 08/15/2017 3:26 PM EST Office of Care Management(OCM)/Web Worker(RS)/ D/C Planning re : Patient is medically ready for d/c today. RS has been in contact with [facility] to see if they could offer a bed. [facility] is still reviewing the case and need their MD to review chart prior to accepting or declining. OCM team needs to check in with [facility] tomorrow to check on status. CM Notified RS: Courtney Suazo Pager [phone] Viry Weir MD - 08/15/2017 10:01 AM EST Vascular Surgery Progress Note ID: Gregory Hoang is a 72 y.o. male with a history of HTN, hyperlipidemia, DM, AF on coumdadin, MARIA VICTORIA (on CPAP), CABG x3 on 07/07/2017, now admitted with CLI and cellulitis of the right forefoot. Procedures this hospitalization: 08/06/17: right 1st, 2nd and 3rd toe amputation 08/10/16: balloon angioplasty of R PT 08/11/17: partial closure and wound vac application to toe amputation site Interval: -no events overnight -pain adequately controlled -rehab referrals placed O: Temp: [36 ??C (96.8 ??F)-36.7 ??C (98.1 ??F)] Heart Rate: [74-80] Resp: [16-18] BP: (102-125)/(63-73) SpO2: [94 %-100 %] Heart Rate from SPO2: -- I/O last 3 completed shifts: In: 780 [P.O.:780] Out: 1500 [Urine:1500] Physical Exam: General: NAD, resting comfortably CVS: Regular Pulm: Normal work of breathing on room air GI: Soft, non tender, non distended Vasc: Right foot: KIRSTIN and kerlex in place; wound vac in place; mild erythema over left foot dorsum Neuro: CN 2-12 grossly intact, nonfocal, moving all extremities. Recent Labs 08/15/1762108/14/172 08/13/17 0533 WBC 8.7 9.8* 10.1* HGB 9.1* 9.5* 9.2* HCT 29.0* 30.3* 29.6* PLATELET 254 263 263 Recent Labs 08/15/1762108/14/172 08/13/17 0533 NA 138 141 141 K 4.6 4.8 4.6 CL 98 100 100 CO2 29 28 29 BUN 27* 25* 18 CREATININE 1.12 1.36 1.16 CALCIUM 8.8 8.5 7.9* New Imaging ?? None new Assessment: Gregory Hoang is a 72 y.o. male with a history of HTN, hyperlipidemia, DM, AF on coumdadin, MARIA VICTORIA (on CPAP), CABG x3 on 07/07/2017 postop course comlicated by right sided blue toe syndrome (possibly from a right [employer] CONTINUITY CONSULTANT PSA which has since thrombosed), now admitted with CLI and cellulitis of the right forefoot. Now s/p R D1-3 TMA & foot debridement. # NEURO: tylenol luz, prn dilaudid for pain; ativan prn # CV: Vitals stable. ; lisinopril, metoprolol, lasix, amiodarone, ASA; # PULM: Encourage IS. # GI: Bowel reg; will add prn suppository per patient request # FEN: Carb Control diet 60/60/75 CHO counting level 2; IVF; replete electrolytes PRN; # RENAL: UOP adequate # ENDO: On home synthroid; home insulin reg # HEME: Restart coumadin, lovenox bridge # ID: Ceftriaxone; plan to d/c with 2 week course of augmentin; # PPX: IS, SCDs, PT/OT # LINES: PIV, wound vac # DISPO: Floor status, Full Code; d/w social work and place referrals to rehab Viry Starkey MD Vascular Surgery Yonathan Starkey MD - 08/15/2017 6:54 AM EST [facility] staff: Looks well. Vac in place. Rehab referrals ongoing. Can ambulate in hallway. Change VAC at bedside today. Naty Colindres RN - 08/14/2017 1:33 PM EST Patient Name: Gregory Hoang Patient Age: 72 y.o. Birthdate: 1945 Admit date: 08/06/2017 Attending Physician: Yonathan Smith MD We want him to go to a place for intensive therapy and not at a residential where he will be just sitting there and not getting any therapy. . Contacted by direct care RN, who said that patient and would like information about patient's referral to: [facility] PHONE: [phone] FAX: [phone] CM spoke with RS who said that referral had not been placed yet. Per previous CM note, patient/ wifehad not definitely ask for referral to facility. Informed patient and of status of referral. Patient/ said that Dr. Smith reassured them that he could get a bed at the above facility. KANWAL explained the referral process to both patient and family. Discussed w pt and family levels of rehab including SNF and swing and acute, and listed local facilities. Discussed the need to make three choices and they did not want to to do this at this time and hoped that he would be accepted to acute rehab at [facility] as Dr. Smith had recommended . Last PT note recommends home with assist and home health but plan changed yesterday per team and both patient and family agree. KANWAL has contacted PT today to ask for follow-up assessment and document ifthey feel that patient could tolerate acute rehab. Once assessment done, CM will meet with patient/family to review assessment and make referrals to SNF vs acute rehab. Await recommendations from PT. Covering pager #[phone]. Viry Starkey MD - 08/14/2017 10:08 AM EST Vascular Surgery Progress Note ID: Gregory Hoang is a 72 y.o. male with a history of HTN, hyperlipidemia, DM, AF on coumdadin, MARIA VICTORIA (on CPAP), CABG x3 on 07/07/2017, now admitted with CLI and cellulitis of the right forefoot. Procedures this hospitalization: 08/06/17: right 1st, 2nd and 3rd toe amputation 08/10/16: balloon angioplasty of R PT 08/11/17: partial closure and wound vac application to toe amputation site Interval: -dermatology consulted for LLE -no overnight events -pain adequately controlled -patient and are overwhelmed regarding the complexity of care with wound vac and would prefer discharge to rehab O: Temp: [36.2 ??C (97.2 ??F)-37.2 ??C (99 ??F)] Heart Rate: [67-87] Resp: [16-18] BP: (95-133)/(60-70) SpO2: [94 %-99 %] Heart Rate from SPO2: [67 bpm-87 bpm] I/O last 3 completed shifts: In: 1440 [P.O.:1440] Out: 1600 [Urine:1600] Physical Exam: General: NAD, resting comfortably CVS: Regular Pulm: Normal work of breathing on room air GI: Soft, non tender, non distended Vasc: Right foot: KIRSTIN and kerlex in place; wound vac in place; mild erythema over left foot dorsum Neuro: CN 2-12 grossly intact, nonfocal, moving all extremities. Recent Labs 08/14/17 0452 08/13/17 0533 08/12/17 0629 WBC 9.8* 10.1* 10.1* HGB 9.5* 9.2* 8.7* HCT 30.3* 29.6* 28.1* PLATELET 263 263 223 Recent Labs 08/14/17 0452 08/13/17 0533 08/12/17 0629 NA 141 141 138 K 4.8 4.6 4.6 CL 100 100 99 CO2 28 29 28 BUN 25* 18 18 CREATININE 1.36 1.16 1.11 CALCIUM 8.5 7.9* 7.9* New Imaging ?? None new Assessment: Gregory Hoang is a 72 y.o. male with a history of HTN, hyperlipidemia, DM, AF on coumdadin, MARIA VICTORIA (on CPAP), CABG x3 on 07/07/2017 postop course comlicated by right sided blue toe syndrome (possibly from a right BUSINESS CONTINUITY CONSULTANT PSA which has since thrombosed), now admitted with CLI and cellulitis of the right forefoot. Now s/p R D1-3 TMA & foot debridement. # NEURO: tylenol luz, prn dilaudid for pain; ativan prn # CV: Vitals stable. ; lisinopril, metoprolol, lasix, amiodarone, ASA; # PULM: Encourage IS. # GI: Bowel reg; will add prn suppository per patient request # FEN: Carb Control diet 60/60/75 CHO counting level 2; IVF; replete electrolytes PRN; # RENAL: UOP adequate # ENDO: On home synthroid; home insulin reg # HEME: Restart coumadin, lovenox bridge # ID: Ceftriaxone; plan to d/c with 2 week course of augmentin; # PPX: IS, SCDs, PT/OT # LINES: PIV, wound vac # DISPO: Floor status, Full Code; d/w social work and place referrals to rehab Viry Starkey MD Vascular Surgery Kaitlin Wolff, RN - 08/13/2017 4:08 PM EST Pt contacted CM requesting information for [facility]. CM provided pt with edelmira, and answered procedure for rehab referral. Pt states he will think about it and let OCM know if he wants to do rehab instead of going home with [facility]. Remotely Piloted Vehicle Controller Kaitlin Saha, RN Pager #[phone] Payam Rosales - 08/13/2017 2:37 PM EST [employer] Encounter Note Patient Name: Gregory Hoang : [id number] MR#: [id number] Admit Date: 08/06/2017 1:41 PM Hospital Day 7 days Narrative: Visited to introduce and assess acceptance of [facility] services. Pt was awake, alert, oriented and in chair and family was there. Assessment:Patient coping positively with stresses of illness/hospitalization at this time. Pt says that he is hoping to get better and his family was there. Pt says that he has family care and supportand taking one day at time. Intervention and Outcome: Provided emotional support and encouraging presence. [facility] services accepted.Conversation to build trusting relationship.Provided pastoral presence.Provided spiritual guidance. Follow-up: yes Time in Direct Care:10 Mins Payam Malin 08/13/2017 Viry Starkey MD - 08/13/2017 7:59 AM EST Vascular Surgery Progress Note ID: Gregory Hoang is a 72 y.o. male with a history of HTN, hyperlipidemia, DM, AF on coumdadin, MARIA VICTORIA (on CPAP), CABG x3 on 07/07/2017, now admitted with CLI and cellulitis of the right forefoot. Procedures this hospitalization: 08/06/17: right 1st, 2nd and 3rd toe amputation 08/10/16: balloon angioplasty of R PT 08/11/17: partial closure and wound vac application to toe amputation site Interval: -no overnight events -pain adequately controlled -denies SOB, CP, dizziness O: Temp: [36.1 ??C (97 ??F)-36.9 ??C (98.4 ??F)] Heart Rate: [72-83] Resp: [16-18] BP: (110-155)/(67-89) SpO2: [94 %-100 %] Heart Rate from SPO2: [82 bpm-88 bpm] I/O last 3 completed shifts: In: 1800 [P.O.:1800] Out: 1200 [Urine:1200] Physical Exam: General: NAD, resting comfortably CVS: Regular Pulm: Normal work of breathing on room air GI: Soft, non tender, non distended Vasc: Right foot: KIRSTIN and kerlex in place; wound vac in place; mild erythema over left foot dorsum Neuro: CN 2-12 grossly intact, nonfocal, moving all extremities. Recent Labs 08/13/17 0533 08/12/17 0629 08/11/17 0616 08/10/17 1430 WBC 10.1* 10.1* 12.9* 11.3* HGB 9.2* 8.7* 9.5* 8.9* HCT 29.6* 28.1* 29.8* 28.4* PLATELET 263 223 236 213 Recent Labs 08/13/17 0533 08/12/17 0629 08/11/17 0616 NA 141 138 138 K 4.6 4.6 4.6 CL 100 99 98 CO2 29 28 27 BUN 18 18 12 CREATININE 1.16 1.11 0.91 CALCIUM 7.9* 7.9* 8.5 New Imaging ?? None new Assessment: Gregory Hoang is a 72 y.o. male with a history of HTN, hyperlipidemia, DM, AF on coumdadin, MARIA VICTORIA (on CPAP), CABG x3 on 07/07/2017 postop course comlicated by right sided blue toe syndrome (possibly from a right [employer] PSA which has since thrombosed), now admitted with CLI and cellulitis of the right forefoot. Now s/p R D1-3 TMA & foot debridement. # NEURO: tylenol luz, prn dilaudid for pain; ativan prn # CV: Vitals stable. ; lisinopril, metoprolol, lasix, amiodarone, ASA; check ABIs # PULM: Encourage IS. # GI: Bowel reg; will add prn suppository per patient request # FEN: Carb Control diet 60/60/75 CHO counting level 2; IVF; replete electrolytes PRN; # RENAL: UOP adequate # ENDO: On home synthroid; home insulin reg # HEME: Restart coumadin, lovenox bridge # ID: Ceftriaxone; plan to d/c with 2 week course of augmentin; patient requesting consult to dermatology for left foot erythema # PPX: IS, SCDs, PT/OT # LINES: PIV, wound vac # DISPO: Floor status, Full Code; Viry Starkey MD Vascular Surgery Kehinde Handy - 08/12/2017 1:15 PM EST Nutrition Services - Initial Note Gregory Hoang : 1945 AGE: 72 y.o. Patient Active Problem List Diagnosis Date Noted ??? ASHD (arteriosclerotic heart disease) 07/06/2017 Priority: High Chronic ??? Cardiomyopathy, ischemic 07/06/2017 Priority: High Chronic ??? 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 STEMI (ST elevation myocardial infarction) 07/05/2017 Priority: High ??? Carpal tunnel syndrome 08/05/2017 ??? Hx of malignant melanoma 08/05/2017 ??? Hx of thyroid cancer 08/05/2017 ??? Leg cramps 08/05/2017 ??? Osteoarthrosis 08/05/2017 ??? Ischemic foot 07/27/2017 ??? Dependence on continuous positive airway pressure ventilation 07/27/2017 ??? Gastroesophageal reflux disease 07/27/2017 ??? Hearing impaired 07/27/2017 ??? Hyperlipidemia 07/27/2017 ??? Hypomagnesemia 07/27/2017 ??? Peripheral neuropathy 07/27/2017 ??? Hospital-Critical lower limb ischemia 07/20/2017 ??? Postoperative retention of urine 06/19/2014 ??? BPH (benign prostatic hyperplasia) 11/28/2013 ??? Atypical nevus of abdominal wall 07/31/2013 ??? Urinary retention 04/05/2013 ??? MARIA VICTORIA (obstructive sleep apnea) on CPAP 03/31/2013 Chronic ??? Goiter 01/25/2013 ??? Seborrheic psoriasis- scalp and ingtergluteal area 10/04/2012 Chronic ??? Skin lesion of chest wall 10/04/2012 ??? Melanoma 09/22/2011 Reason for Nutrition Intervention: Diagnosis Diet Order: CHO2 Appetite: Good-per pt Food allergies: NKFA Chewing/Swallowing difficulty: none noted Ht Readings from Last 3 Encounters: 08/10/17 175.3 cm (5' 9) 08/06/17 172.7 cm (5' 8) 08/06/17 172.7 cm (5' 8) Wt Readings from Last 3 Encounters: 08/10/17 89.5 kg (197 lb 5 oz) 08/06/17 86.2 kg (190 lb) 08/06/17 86.5 kg (190 lb 9.6 oz) Body mass index is 29.14 kg/(m^2). Vitamins/Minerals: Vitamin C noted. Assessment: Patient denies need for nutrition education. Pt seen for admit diagnosis of Critical lower limb ischemia. Pt reported a good appetite without difficulty chewing or swallowing. Nursing documentation notes 100% PO intake. He is tolerating his current diet without nausea or vomiting. Pt declined need for dietary assistance with meals. Pt declined need for high protein snacks. Pt is aware of unit kitchenette and high protein snacks that are available. Pt is filling out his menu daily. Patient had no further questions at this time. Encouraged patient to contact Food and Nutrition services with any questions that may arise. Nutrition Plan: Continue current diet. Recommend Daily Multi Vitamins. Monitor weight. Encourage good po intake. Support and encouragement provided. Nutrition services to follow weekly thru hospital course unless consulted in the interim. VIVIAN Jimenez Kaitlin Wolff RN - 08/12/2017 1:06 PM EST The patient/outbound call center representative has been provided a list of Home Health Agencies/DME vendors which serve their preferred geographic area. A letter describing our affiliations was reviewed with them and theywere educated about their right to choose where referrals are placed. Patient requests referral to [facility]. PHONE: [phone] FAX: [phone]. And Home NPWT (Negative Pressure Wound Therapy) aka wound vac device made available to pt. Serial # confirmed. Reviewed [facility] Proof of Delivery/Assignment of Benefits Statement(POD/AOB) Form w patient or authorized agent signing on behalf of patient. Copy of POD/AOB provided to pt and other copy faxed to [employer] @ fax# [phone] Expected date of discharge: 08/12/2017. Referral routed to the Web Worker for matching with agency/vendor and to provide any required information. Yonathan Starkey MD - 08/12/2017 8:05 AM EST vasc staff: Pain better. Needs ambulatory assessment. Try to use heel block shoe, if not flat shoe ok. [facility] rehab planning versus home thereafter Viry Starkey MD - 08/12/2017 7:52 AM EST Vascular Surgery Progress Note ID: Gregory Hoang is a 72 y.o. male with a history of HTN, hyperlipidemia, DM, AF on coumdadin, MARIA VICTORIA (on CPAP), CABG x3 on 07/07/2017, now admitted with CLI and cellulitis of the right forefoot. Procedures this hospitalization: 08/06/17: right 1st, 2nd and 3rd toe amputation 08/10/16: balloon angioplasty of R PT 08/11/17: partial closure and wound vac application to toe amputation site Interval: -no overnight events -pain adequately controlled -denies SOB, CP, dizziness O: Temp: [36.1 ??C (97 ??F)-36.7 ??C (98.1 ??F)] Heart Rate: [72-78] Resp: [13-18] BP: (102-128)/(56-79) SpO2: [94 %-98 %] Heart Rate from SPO2: -- I/O last 3 completed shifts: In: 540 [P.O.:540] Out: 1475 [Urine:1475] Physical Exam: General: NAD, resting comfortably CVS: Regular Pulm: Normal work of breathing on room air GI: Soft, non tender, non distended Vasc: Right foot: KIRSTIN and kerlex in place; wound vac in place. Neuro: CN 2-12 grossly intact, nonfocal, moving all extremities. Recent Labs 08/12/17 0629 08/11/17 0616 08/10/17 1430 08/10/17 1028 08/10/17 0550 WBC 10.1* 12.9* 11.3* 11.0* 11.3* HGB 8.7* 9.5* 8.9* 8.8* 8.9* HCT 28.1* 29.8* 28.4* 28.1* 29.0* PLATELET 223 236 213 207 231 Recent Labs 08/12/17 0629 08/11/17 0616 08/10/17 0550 NA 138 138 144 K 4.6 4.6 4.6 CL 99 98 104 CO2 28 27 27 BUN 18 12 17 CREATININE 1.11 0.91 1.05 CALCIUM 7.9* 8.5 8.1* New Imaging ?? None new Assessment: Gregory Hoang is a 72 y.o. male with a history of HTN, hyperlipidemia, DM, AF on coumdadin, MARIA VICTORIA (on CPAP), CABG x3 on 07/07/2017 postop course comlicated by right sided blue toe syndrome (possibly from a right [employer] PSA which has since thrombosed), now admitted with CLI and cellulitis of the right forefoot. Now POD# 2 s/p R D1-3 TMA & foot debridement. # NEURO: tylenol luz, prn dilaudid for pain; ativan prn # CV: Vitals stable. ; lisinopril, metoprolol, lasix, amiodarone, ASA; # PULM: Encourage IS. # GI: Bowel reg. # FEN: Carb Control diet 60/60/75 CHO counting level 2; IVF; replete electrolytes PRN; # RENAL: UOP adequate # ENDO: On home synthroid; home insulin reg # HEME: Restart coumadin, lovenox bridge # ID: Ceftriaxone; plan to d/c with 2 week course of augmentin # PPX: IS, SCDs, PT/OT # LINES: PIV, wound vac # DISPO: Floor status, Full Code, Viry Starkey MD Vascular Surgery Viry Starkey MD - 08/11/2017 8:06 AM EST Vascular Surgery Progress Note ID: Gregory Hoang is a 72 y.o. male with a history of HTN, hyperlipidemia, DM, AF on coumdadin, MARIA VICTORIA (on CPAP), CABG x3 on 07/07/2017, now admitted with CLI and cellulitis of the right forefoot. Interval: -no overnight events -pain adequately controlled -denies SOB, CP, dizziness O: Temp: [36.2 ??C (97.2 ??F)-37.2 ??C (99 ??F)] Heart Rate: [72-84] Resp: [13-24] BP: (120-171)/(58-87) SpO2: [93 %-96 %] Heart Rate from SPO2: [94 bpm-95 bpm] I/O last 3 completed shifts: In: 660 [P.O.:360; I.V.:300] Out: 2875 [Urine:2875] Physical Exam: General: NAD, resting comfortably CVS: Regular Pulm: Normal work of breathing on room air GI: Soft, non tender, non distended Vasc: Right foot: KIRSTIN and kerlex in place; dressing removed and replaced at bedside, wound bed pink with good granulation tissue Neuro: CN 2-12 grossly intact, nonfocal, moving all extremities. Recent Labs 08/11/17 0616 08/10/17 1430 08/10/17 1028 08/10/17 0550 08/09/17 0110 WBC 12.9* 11.3* 11.0* 11.3* 11.3* HGB 9.5* 8.9* 8.8* 8.9* 10.0* HCT 29.8* 28.4* 28.1* 29.0* 31.9* PLATELET 236 213 207 231 234 Recent Labs 08/11/17 0616 08/10/17 0550 08/09/17 0110 NA 138 144 138 K 4.6 4.6 4.5 CL 98 104 96* CO2 27 27 29 BUN 12 17 34* CREATININE 0.91 1.05 1.54* CALCIUM 8.5 8.1* 8.3* New Imaging ?? None new Assessment: Gregory Hoang is a 72 y.o. male with a history of HTN, hyperlipidemia, DM, AF on coumdadin, MARIA VICTORIA (on CPAP), CABG x3 on 07/07/2017 postop course comlicated by right sided blue toe syndrome (possibly from a right [employer] PSA which has since thrombosed), now admitted with CLI and cellulitis of the right forefoot. Now Day of Surgery s/p R D1-3 TMA & foot debridement. # NEURO: tylenol luz, prn dilaudid for pain; ativan prn # CV: Vitals stable. ; lisinopril, metoprolol, lasix, amiodarone, ASA; Plan for partial closure and wound vac placement under local anesthesia # PULM: Encourage IS. # GI: Bowel reg. # FEN: Carb Control diet 60/60/75 CHO counting level 2; IVF; replete electrolytes PRN; # RENAL: UOP adequate # ENDO: On home synthroid; home insulin reg # HEME: Heparin gtt # ID: ceftriaxone # PPX: IS, SCDs, PT/OT # LINES: PIV. # DISPO: Floor status, Full Code, ASA: 3 Mal: II Cr: 1.05 (08/10/2017) Sedation Plan: Moderate sedation with versed & fentanyl Viry Starkey MD Vascular Surgery Magnolia Branch RN - 08/10/2017 7:39 AM EST ANGIO NURSING DATABASE Name: GREGORY HOANG Date of : 1945 AGE 72 y.o. Address: [address] [place] [address] [place] [id number] (home) Mobile: Telephone Information: Referring Provider: No ref. provider found REASON FOR VISIT: Question Answer Comment Laterality Right Reason for exam and clinical history: RLE demarcation of toes Exam/Procedure requested: RLE angiogram with possible intervention Is the patient on anticoagulant / anitplatelet therapy ? Aspirin Heparin Anticoagulant/antiplatelet/herbal med. stopped on per MD order. Allergies Allergen Reactions ??? Gabapentin Palpitations Dizziness, falls (on 100mg bid) Pertinent PMH: Patient Active Problem List Diagnosis Code ??? [...] ??? Postoperative retention of urine N99.89, R33.8 Pertinent PSH: Past Surgical History: Procedure Laterality Date ??? PRG SOMATOSENSORY TEST, ANY/ALL PER. NERVES, TRUNK OR HEAD 03/28/2013 FACIAL NERVE MONITORING, SETUP performed by Manny Mcknight MD at [facility] MAIN OR ??? PRO CABG, ARTERIAL, SINGLE N/A 07/07/2017 @CABG, USING ARTERIAL GRAFT;SINGLE ARTERIAL GRAFT (WRVU 33.75) performed by Yuan Retana MD at [facility] MAIN OR ??? PRO CABG, ARTERY-VEIN, TWO N/A 07/07/2017 @CABG, TWO VENOUS GRAFTS & ARTERIAL GRAFT (WRVU 7.93) performed by Yuan Retana MD at [facility] MAIN OR ??? PRO COLONOSCOPY, REMV LESN, SNARE 01/16/2014 COLONOSCOPY, POLYPECTOMY, REMOVAL LESION BY SNARE performed by Nohemi Jaimes MD at [facility] ENDOSCOPY ??? PRO ENDOSCOPY W/VIDEO-ASST VEIN HARVEST, CABG Right 07/07/2017 ENDOSCOPIC HARVEST VEIN(S) FOR CABG (WRVU 0.31) performed by Yuan Retana MD at [facility] MAIN OR ??? PRO THYROIDECTOMY 03/28/2013 THYROIDECTOMY, TOTAL OR COMPLETE performed by Manny Mcknight MD at [facility] MAIN OR Date/Procedure Med's given/comments 08/10/17 RLE angio with multiple [employer] [place] to R posterior tibial artery Fentanyl 200 mcg IV, versed 4 mg IV, heparin 9000 units IV, protamine 40 mg IV. got increasingly confused with meds, stated to stop giving sedation meds Laboratory Results: Lab Results Component Value Date INR 1.4 (H) 08/10/2017 Lab Results Component Value Date CREATININE 1.05 08/10/2017 Lab Results Component Value Date K 4.6 08/10/2017 Lab Results Component Value Date PLATELET 231 08/10/2017 Medications: Prior to Admission medications Medication Sig Start Date End Date Taking? Authorizing Provider cephalexin (KEFLEX) 500 mg Capsule take 1 capsule by mouth four times a day for 7 days 08/03/17 PROVIDER, HISTORICAL lisinopril (PRINIVIL;ZESTRIL) 2.5 mg Tablet Take 2.5 mg by mouth daily. PROVIDER, HISTORICAL LORazepam (ATIVAN) 0.5 mg Tablet Take 0.5 mg by mouth as needed. 08/02/17 PROVIDER, HISTORICAL furosemide (LASIX) 20 mg Tablet Take 2 tablets by mouth daily. 08/04/17 Danette Maxwell APRN cefUROXime (CEFTIN) 250 mg Tablet Take 1 tablet by mouth 2 times daily for 10 days. 08/04/17 08/14/17 Makayla Wilson APRN Magnesium Oxide 500 mg Capsule Take 500 mg by mouth 2 times daily. PROVIDER, HISTORICAL lidocaine (LIDODERM) 5 % Adhesive Patch, Medicated Place one patch on right foot for 12 hours, then remove and do not apply another for 12 hours more. 07/30/17 Barbra Soares APRN clobetasol (TEMOVATE) 0.05 % Solution Apply 1 Application topically 2 times daily. 06/20/17 PROVIDER, HISTORICAL HYDROmorphone (DILAUDID) 2 mg Tablet Take 0.5-1 tablets by mouth every 4 hours as needed for Pain. Take smallest dose needed as infrequently as possible Patient not taking: Reported on 08/04/2017 1/2/18 Carlos Alberto Reddy MD traMADol (ULTRAM) 50 mg Tablet Take 1 tablet by mouth every 6 hours as needed for Pain. 07/27/17 Carlos Alberto Reddy MD warfarin (COUMADIN) 2.5 mg Tablet Take 1 tablet by mouth daily. 07/20/17 Arik Clement MD LANTUS SOLOSTAR pen Inject 20 Units subcutaneously nightly. Patient taking differently: Inject 15 Units subcutaneously nightly. 07/20/17 Manny Lowery MD acetaminophen (TYLENOL) 500 mg Tablet Take 2 tablets by mouth every 6 hours as needed for Pain. 07/14/17 Martha Teague APRN AMIOdarone (PACERONE) 400 mg Tablet Take 1 tablet by mouth daily. 07/15/17 Martha Teague APRN atorvastatin (LIPITOR) 40 mg Tablet Take 1 tablet by mouth every evening. 07/14/17 Martha Teague APRN meTOPROLOL tartrate (LOPRESSOR) 25 mg Tablet Take 1 tablet by mouth 2 times daily. 07/14/17 Martha Teague APRN insulin lispro (HUMALOG KWIKPEN) Insulin Pen Inject 15-20 Units subcutaneously 3 times daily (with meals). Patient taking differently: Inject 14 Units subcutaneously 3 times daily (with meals). 07/14/17 Martha Teague APRN ACCU-CHEK TERA PLUS TEST STRP Strip 2-3 times daily 07/14/17 Martha Teague APRN metFORMIN (GLUCOPHAGE) 850 mg Tablet Take 1 tablet by mouth 2 times daily (with meals). 07/15/17 Martha Teague APRN BD INSULIN PEN NEEDLE UF MINI 31 gauge x 10/08 Needle 1 each by Other route 4 times daily. 07/14/17 Martha Teague APRN levothyroxine (SYNTHROID) 175 mcg Tablet Take 1 tablet by mouth daily. 12/24/16 Luz Prescott MD ascorbic acid, vitamin C, (VITAMIN C) 500 mg Tablet Take 500 mg by mouth daily. Winter months only PROVIDER, HISTORICAL turmeric root extract 500 mg Capsule Take 500 mg by mouth 2 times daily. PROVIDER, HISTORICAL fish oil-omega-3 fatty acids 1,000 mg Capsule Take 2 g by mouth daily. PROVIDER, HISTORICAL aspirin 81 mg EC tablet Take 81 mg by mouth every other day. PROVIDER, HISTORICAL fluocinolone acetonide (SYNALAR) 0.01 % external solution Twice daily to less severe areas of psoriasis Patient not taking: Reported on 08/04/2017 10/04/12 Rigoberto Garcia III, MD Magnolia Hollins RN - 08/10/2017 7:38 AM EST 0722 To procedure room 1 via stretcher. Onto table Supine. All monitors, O2, safety strap in place. Med's per protocol. Angio only post procedure: Time sheath removed: 929 Side: left groin Closure device used: mynx Hematoma present? no Site release time: 0950 Anticipated up time: 1350 Steven Jain MD - 08/10/2017 6:57 AM EST Vascular Surgery Progress Note ID: Gregory Hoang is a 72 y.o. male with a history of HTN, hyperlipidemia, DM, AF on coumdadin, MARIA VICTORIA (on CPAP), CABG x3 on 07/07/2017, now admitted with CLI and cellulitis of the right forefoot. Interval: -pain is well controlled, 1 dose IV dilaudid overnight -denies SOB, CP, dizziness O: Temp: [36.2 ??C (97.2 ??F)-36.8 ??C (98.2 ??F)] Heart Rate: [65-85] Resp: [12-24] BP: (112-173)/(55-82) SpO2: [77 %-100 %] Heart Rate from SPO2: [65 bpm-83 bpm] I/O last 3 completed shifts: In: 2243 [P.O.:1240; I.V.:1003] Out: 1950 [Urine:1950] Physical Exam: General: NAD, resting comfortably CVS: Regular Pulm: Normal work of breathing on room air GI: Soft, non tender, non distended Vasc: Right foot: KIRSTIN and kerlex in place, dressing not taken down prior to procedure in IR Neuro: CN 2-12 grossly intact, nonfocal, moving all extremities. Recent Labs 08/10/17 0550 08/09/17 0110 08/08/17 0451 08/07/17 0730 WBC 11.3* 11.3* 10.5* 9.7* HGB 8.9* 10.0* 9.3* 9.9* HCT 29.0* 31.9* 30.3* 32.3* PLATELET 231 234 252 312 Recent Labs 08/10/17 0550 08/09/17 0110 08/08/17 0451 08/07/17 0730 NA 144 138 136 140 K 4.6 4.5 4.5 4.5 CL 104 96* 94* 99 CO2 27 29 25 29 BUN 17 34* 35* 31* CREATININE 1.05 1.54* 1.57* 1.22 CALCIUM 8.1* 8.3* 7.9* 8.5 New Imaging ?? None new Assessment: Gregory Hoang is a 72 y.o. male with a history of HTN, hyperlipidemia, DM, AF on coumdadin, MARIA VICTORIA (on CPAP), CABG x3 on 07/07/2017 postop course comlicated by right sided blue toe syndrome (possibly from a right [employer]ANT PSA which has since thrombosed), now admitted with CLI and cellulitis of the right forefoot. Now 1 Day Post-Op s/p R D1-3 TMA & foot debridement. Plan for arteriogram in IR today of the RLE with intervention as indicated. Continue pain control, IV antibiotics, and heparin infusion. # NEURO: tylenol luz, prn dilaudid for pain; ativan prn # CV: Vitals stable. Plan for OR today; lisinopril, metoprolol, lasix, amiodarone, ASA # PULM: Encourage IS. # GI: Bowel reg. # FEN: NPO diet (Give Meds); IVF; replete electrolytes PRN; # RENAL: UOP adequate # ENDO: On home synthroid; home insulin reg # HEME: Heparin gtt # ID: ceftriaxone # PPX: IS, SCDs, PT/OT # LINES: PIV. # DISPO: Floor status, Full Code, ASA: 3 Mal: II Cr: 1.05 (08/10/2017) Sedation Plan: Moderate sedation with versed & fentanyl Steven Zhang MD Vascular Surgery Maddison Holly RN - 08/10/2017 6:55 AM EST Pt [facility] for [facility]. Heparin gtt continues to run. Pt a/ox4. R leg elevated on 3 pillows. PIV site unremarkable. Report given to CT. Maddison Holly RN - 08/10/2017 5:41 AM EST Pt continues to have pain, now 02/01 but reports that it is very uncomfortable, BP 170/78, probably due to pain level-vascular team notified. PRN dose of dil 4mg po given @0550. R leg remains elevated on 3 pillows to aid with throbbing pain. Maddison Holly RN - 08/10/2017 5:40 AM EST Pt continues to have pain. Now reports 10. Vascular teamed paged and spoke with pt at bedside. Dil0.3mg IV given @0408. BP elevated possibly due to pain level. Will recheck. Maddison Holly RN - 08/10/2017 2:21 AM EST Pt was sleeping comfortably; awoken @ MN to be given insulin dose, RN asked pt his pain level and hesaid,'it's good, it's a 5' and went back to sleep. Pt woke at around 0100 c/o severe, throbbing pain, was given dil 4mg po. Pain did not decrease as per pt, he was rubbing his leg and saying,'I can't take the pain.' One time dil 4mg po was given as per md order. Tylenol 1000mg also given. RN will monitor pt status and comfort. Maddison Holly RN - 08/10/2017 2:00 AM EST MN FS 283, 8u given per order. Recheck at 0200 was 188, 0u given as per order. Viry Weir MD - 08/09/2017 1:47 PM EST Post-op Check Patient Name: Gregory Hoang Patient Age: 72 y.o. Attending Physician: Yonathan Smith MD Gregory Hoang is a 72 y.o. male s/p Procedure(s) (LRB): AMPUTATION, TRANSMETATARSAL (WRVU 12.71) (Right) Subjective: Pt seen, examined and w/o complaints; denies f/c/n/v, chest pain, SOB. Pain well controlled on medications. Objective Vitals Last value Range last 24hrs Temperature Temp: 36.3 ??C (97.3 ??F) Temp: [36.2 ??C (97.2 ??F)-36.8 ??C (98.2 ??F)] Heart Rate Heart Rate: 70 Heart Rate: [65-85] Blood Pressure BP: 141/73 BP: (108-153)/(55-81) Respiratory Rate Resp: 20 Resp: [12-23] SpO2 SpO2: 99 % SpO2: [77 %-100 %] I/O this shift: In: 1113 [P.O.:120; I.V.:993] Out: 1600 [Urine:1600] General: NAD, A/O x 3 HEENT: NC/AT, PERRL, EOMI CV: RRR, no appreciable murmurs Pulm: CTAB, no w/r/r Abd: soft, NT/ND, benign Extremity: no c/c/e. Dressings c/d/i. No evidence of hematoma/seroma/infection Neuro: CN 2-12 grossly intact, nonfocal Recent Labs 08/09/17 0110 08/08/17 1800 08/08/17 1027 08/08/17 0451 08/07/17 2218 08/07/17 0730 08/07/17 0704 WBC 11.3* -- -- 10.5* -- -- 9.7* -- HGB 10.0* -- -- 9.3* -- -- 9.9* -- HCT 31.9* -- -- 30.3* -- -- 32.3* -- PLATELET 234 -- -- 252 -- -- 312 -- PT 16.0* -- -- 18.1* -- -- -- 17.3* INR 1.3* -- -- 1.5* -- -- -- 1.4* PTT 86* 97* 64* >160* 114* < > -- 34 < > = values in this interval not displayed. Recent Labs 08/09/17 0110 08/08/17 0451 08/07/17 0730 NA 138 136 140 K 4.5 4.5 4.5 CL 96* 94* 99 CO2 29 25 29 BUN 34* 35* 31* CREATININE 1.54* 1.57* 1.22 GLUCOSE 108 229* 80 CALCIUM 8.3* 7.9* 8.5 A/P: Gregory Hoang is a 72 y.o. male patient s/p above procedures currently in stable condition and recovering well after surgery. - Appropriate for floor - Pain well controlled - Hemodynamically stable, UOP adequate - Continue post-op plan Viry Starkey MD 08/09/2017 Angela Zhang RN - 08/09/2017 10:45 AM EST ANGIO NURSING DATABASE Name: GREGORY HOANG Date of : 1945 AGE 72 y.o. Address: [address] [place] [address] [place] [id number] (home) Mobile: Telephone Information: Referring Provider: No ref. provider found REASON FOR VISIT: RLE Angiogram with Possible Intervention Laterality Right Reason for exam and clinical history: RLE demarcation of toes Exam/Procedure requested: RLE angiogram with possible intervention Is the patient on anticoagulant/anitplatelet therapy? Aspirin Heparin Allergies Allergen Reactions ??? Gabapentin Palpitations Dizziness, falls (on 100mg bid) Pertinent PMH: Patient Active Problem List Diagnosis Code ??? [...] ??? Postoperative retention of urine N99.89, R33.8 Pertinent PSH: Past Surgical History: Procedure Laterality Date ??? PRG SOMATOSENSORY TEST, ANY/ALL PER. NERVES, TRUNK OR HEAD 03/28/2013 FACIAL NERVE MONITORING, SETUP performed by Manny Mcknight MD at [facility] MAIN OR ??? PRO CABG, ARTERIAL, SINGLE N/A 07/07/2017 @CABG, USING ARTERIAL GRAFT;SINGLE ARTERIAL GRAFT (WRVU 33.75) performed by Yuan Retana MD at [facility] MAIN OR ??? PRO CABG, ARTERY-VEIN, TWO N/A 07/07/2017 @CABG, TWO VENOUS GRAFTS & ARTERIAL GRAFT (WRVU 7.93) performed by Yuan Retana MD at [facility] MAIN OR ??? PRO COLONOSCOPY, REMV LESN, SNARE 01/16/2014 COLONOSCOPY, POLYPECTOMY, REMOVAL LESION BY SNARE performed by Nohemi Jaimes MD at [facility] ENDOSCOPY ??? PRO ENDOSCOPY W/VIDEO-ASST VEIN HARVEST, CABG Right 07/07/2017 ENDOSCOPIC HARVEST VEIN(S) FOR CABG (WRVU 0.31) performed by Yuan Retana MD at [facility] MAIN OR ??? PRO THYROIDECTOMY 03/28/2013 THYROIDECTOMY, TOTAL OR COMPLETE performed by Manny Mcknight MD at [facility] MAIN OR Date/Procedure Meds given/comments No Prior Laboratory Results: Lab Results Component Value Date INR 1.3 (H) 08/09/2017 Lab Results Component Value Date CREATININE 1.54 (H) 08/09/2017 Lab Results Component Value Date K 4.5 08/09/2017 Lab Results Component Value Date PLATELET 234 08/09/2017 Medications: Prior to Admission medications Medication Sig Start Date End Date Taking? Authorizing Provider cephalexin (KEFLEX) 500 mg Capsule take 1 capsule by mouth four times a day for 7 days 08/03/17 PROVIDER, HISTORICAL lisinopril (PRINIVIL;ZESTRIL) 2.5 mg Tablet Take 2.5 mg by mouth daily. PROVIDER, HISTORICAL LORazepam (ATIVAN) 0.5 mg Tablet Take 0.5 mg by mouth as needed. 08/02/17 PROVIDER, HISTORICAL furosemide (LASIX) 20 mg Tablet Take 2 tablets by mouth daily. 08/04/17 Danette Maxwell APRN cefUROXime (CEFTIN) 250 mg Tablet Take 1 tablet by mouth 2 times daily for 10 days. 08/04/17 08/14/17 Makayla Wilson APRN Magnesium Oxide 500 mg Capsule Take 500 mg by mouth 2 times daily. PROVIDER, HISTORICAL lidocaine (LIDODERM) 5 % Adhesive Patch, Medicated Place one patch on right foot for 12 hours, then remove and do not apply another for 12 hours more. 07/30/17 Barbra Soares APRN clobetasol (TEMOVATE) 0.05 % Solution Apply 1 Application topically 2 times daily. 06/20/17 PROVIDER, HISTORICAL HYDROmorphone (DILAUDID) 2 mg Tablet Take 0.5-1 tablets by mouth every 4 hours as needed for Pain. Take smallest dose needed as infrequently as possible Patient not taking: Reported on 08/04/2017 07/27/17 Cralos Alberto Reddy MD traMADol (ULTRAM) 50 mg Tablet Take 1 tablet by mouth every 6 hours as needed for Pain. 07/27/17 Carlos Alberto Reddy MD warfarin (COUMADIN) 2.5 mg Tablet Take 1 tablet by mouth daily. 07/20/17 Arik Clement MD LANTUS SOLOSTAR pen Inject 20 Units subcutaneously nightly. Patient taking differently: Inject 15 Units subcutaneously nightly. 07/20/17 Manny Lowery MD acetaminophen (TYLENOL) 500 mg Tablet Take 2 tablets by mouth every 6 hours as needed for Pain. 07/14/17 Martha Teague APRN AMIOdarone (PACERONE) 400 mg Tablet Take 1 tablet by mouth daily. 07/15/17 Martha Teague APRN atorvastatin (LIPITOR) 40 mg Tablet Take 1 tablet by mouth every evening. 07/14/17 Martha Teague APRN meTOPROLOL tartrate (LOPRESSOR) 25 mg Tablet Take 1 tablet by mouth 2 times daily. 07/14/17 Martha Teague APRN insulin lispro (HUMALOG KWIKPEN) Insulin Pen Inject 15-20 Units subcutaneously 3 times daily (with meals). Patient taking differently: Inject 14 Units subcutaneously 3 times daily (with meals). 07/14/17 Martha Teague APRN ACCU-CHEK TERA PLUS TEST STRP Strip 2-3 times daily 07/14/17 Martha Teague APRN metFORMIN (GLUCOPHAGE) 850 mg Tablet Take 1 tablet by mouth 2 times daily (with meals). 07/15/17 Martha Teague APRN BD INSULIN PEN NEEDLE UF MINI 31 gauge x 3/16 Needle 1 each by Other route 4 times daily. 07/14/17 Martha Teague APRN levothyroxine (SYNTHROID) 175 mcg Tablet Take 1 tablet by mouth daily. 12/24/16 Luz Prescott MD ascorbic acid, vitamin C, (VITAMIN C) 500 mg Tablet Take 500 mg by mouth daily. Winter months only PROVIDER, HISTORICAL turmeric root extract 500 mg Capsule Take 500 mg by mouth 2 times daily. PROVIDER, HISTORICAL fish oil-omega-3 fatty acids 1,000 mg Capsule Take 2 g by mouth daily. PROVIDER, HISTORICAL aspirin 81 mg EC tablet Take 81 mg by mouth every other day. PROVIDER, HISTORICAL fluocinolone acetonide (SYNALAR) 0.01 % external solution Twice daily to less severe areas of psoriasis Patient not taking: Reported on 08/04/2017 10/04/12 Rigoberto Garcia III, MD Naty Crowder RN - 08/09/2017 10:19 AM EST 0915- RLE elevated x1 pillow. Naty Crowder RN - 08/09/2017 10:03 AM EST 1000- Pt terrance sips of H2O. Naty Crowder RN - 08/09/2017 9:40 AM EST 0940 - Dr. Starkey informed of pt's acute urinary retention & straight cath results. Naty Crowder RN - 08/09/2017 9:19 AM EST 0905- Report rec'd & care assumed. Viry Weir MD - 08/09/2017 6:55 AM EST Vascular Surgery Progress Note ID: Gregory Hoang is a 72 y.o. male with a history of HTN, hyperlipidemia, DM, AF on coumdadin, MARIA VICTORIA (on CPAP), CABG x3 on 07/07/2017, now admitted with CLI and cellulitis of the right forefoot. Interval: -given ativan overnight for anxiety -pain is well controlled -denies SOB, CP, dizziness O: Temp: [36.2 ??C (97.2 ??F)-36.8 ??C (98.2 ??F)] Heart Rate: [65-85] Resp: [12-23] BP: (108-153)/(55-81) SpO2: [77 %-100 %] Heart Rate from SPO2: [65 bpm-80 bpm] I/O last 3 completed shifts: In: 2814 [P.O.:2200; I.V.:614] Out: - Physical Exam: General: NAD, resting comfortably CVS: Regular Pulm: Normal work of breathing on room air GI: Soft, non tender, non distended Vasc: Right foot: dusky to mid forefoot. Toes purple and blistering. Some surrounding erythema. Toesare painful, and tender to the touch. Motor function in ankle. Minimal motor function in toes. Neuro: CN 2-12 grossly intact, nonfocal, moving all extremities. Recent Labs 08/09/17 0110 08/08/17 0451 08/07/17 0730 WBC 11.3* 10.5* 9.7* HGB 10.0* 9.3* 9.9* HCT 31.9* 30.3* 32.3* PLATELET 234 252 312 Recent Labs 08/09/17 0110 08/08/17 0451 08/07/17 0730 NA 138 136 140 K 4.5 4.5 4.5 CL 96* 94* 99 CO2 29 25 29 BUN 34* 35* 31* CREATININE 1.54* 1.57* 1.22 CALCIUM 8.3* 7.9* 8.5 New Imaging ?? None new Assessment: rGegory Hoang is a 72 y.o. male with a history of HTN, hyperlipidemia, DM, AF on coumdadin, MARIA VICTORIA (on CPAP), CABG x3 on 07/07/2017 postop course comlicated by right sided blue toe syndrome (possibly from a right [employer] PSA which has since thrombosed), now admitted with CLI and cellulitis of the right forefoot. Continue pain control, IV antibiotics, and heparin infusion. Given that his disease appears to be diabetic, and tibial - pedal, # NEURO: tylenol luz, prn dilaudid for pain; ativan prn # CV: Vitals stable. Plan for OR today; lisinopril, metoprolol, lasix, amiodarone, ASA # PULM: Encourage IS. # GI: Bowel reg. # FEN: Regular diet NPO diet (Give Meds); IVF; replete electrolytes PRN; # RENAL: UOP adequate # ENDO: On home synthroid; home insulin reg # HEME: Heparin gtt # ID: ceftriaxone # PPX: IS, SCDs, PT/OT # LINES: PIV. # DISPO: Floor status, Full Code, Viry Starkey MD Vascular Surgery Melba Cruz RN - 08/09/2017 12:58 AM EST Pt alarmed, but will not remain sitting. Pt has been given Ativan and Dilaudid and is becoming increasingly more lethargic. Sitter to remain in room with pt for safety. Phlebotomy arrived for PTT blood draw at 0045. Unsuccessful draw attempt, another passenger service manager will come [facility] to collect blood for PTT test. Chiquis Trivedi RN - 08/08/2017 4:55 PM EST Patient blood sugar 58 at 1601. Patient given juice, hira crackers, and peanut butter. Sugar rechecked at 1642 for 78. Patient given more hira crackers and peanut butter. concerned about bloodsugars today, discussed plan of care with patient and . Continue q4h glucose monitoring. Viry Starkey MD - 08/08/2017 10:41 AM EST Vascular Surgery Progress Note ID: Gregory Hoang is a 72 y.o. male with a history of HTN, hyperlipidemia, DM, AF on coumdadin, MARIA VICTORIA (on CPAP), CABG x3 on 07/07/2017, now admitted with CLI and cellulitis of the right forefoot. Interval: -no overnight events -meal associated insulin decreased to 11 units -oxycodone switched to dilaudid with some improvement, pain better controlled this AM O: Temp: [36.3 ??C (97.3 ??F)-36.7 ??C (98.1 ??F)] Heart Rate: [76-96] Resp: [17-18] BP: (93-163)/(55-83) SpO2: [97 %-100 %] Heart Rate from SPO2: -- I/O last 3 completed shifts: In: 2431 [P.O.:1755; I.V.:676] Out: - Physical Exam: General: NAD, resting comfortably CVS: Regular Pulm: Normal work of breathing on room air GI: Soft, non tender, non distended Vasc: Right foot: dusky to mid forefoot. Toes purple and blistering. Some surrounding erythema. Toesare painful, and tender to the touch. Motor function in ankle. Minimal motor function in toes. Neuro: CN 2-12 grossly intact, nonfocal, moving all extremities. Recent Labs 08/08/17 0451 08/07/17 0730 08/06/17 1232 WBC 10.5* 9.7* 11.8* HGB 9.3* 9.9* 9.9* HCT 30.3* 32.3* 32.0* PLATELET 252 312 326 Recent Labs 08/08/17 0451 08/07/17 0730 08/06/17 1232 NA 136 140 138 K 4.5 4.5 4.6 CL 94* 99 97* CO2 25 29 25 BUN 35* 31* 29* CREATININE 1.57* 1.22 1.33 CALCIUM 7.9* 8.5 8.5 New Imaging ?? None new Assessment: Gregory Hoang is a 72 y.o. male with a history of HTN, hyperlipidemia, DM, AF on coumdadin, MARIA VICTORIA (on CPAP), CABG x3 on 07/07/2017 postop course comlicated by right sided blue toe syndrome (possibly from a right [employer] PSA which has since thrombosed), now admitted with CLI and cellulitis of the right forefoot. Continue pain control, IV antibiotics, and heparin infusion. Given that his disease appears to be diabetic, and tibial - pedal, OR tomorrow for angiogram. NPO at midnight tonight. Viry Starkey MD Vascular Surgery Melba Cruz RN - 08/08/2017 6:41 AM EST Per lab, pt blood glucose 229. 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 Melba Cruz RN - 08/08/2017 4:06 AM EST Fall Event Note Gregory Hoang [id number] 08/08/2017 Time of Fall: 0400 Was the fall witnessed No/Unobserved fall Patient's description of fall: Doesn't recall standing from chair, unsure how he fell. Nursing staff description of fall: Pt was found down on floor in room. Anatomical point(s) of impact: Right knee Vital signs observations: Hypertensive Neurological observations: A+Ox4, lethargic from sleep deprivation Post-fall physical assessment--relevant findings: No signs of injury, denies new pain Interventions: Pt assisted to standing position, and helped back to bed. Physician/Provider notified (name): Jozef Barillas MD Patient support contact/guardian notified (as applicable): Yonathan Starkey MD - 08/07/2017 4:32 PM EST [facility] staff: Patient was seen and examined and reviewed with his and family at bedside. He has a severe embolic phenomenon to his right forefoot. This pain has been considerable last several days. He is a little bit better with IV hydration and oral and IV narcotics. Exam reveals his great toe, second toe, third toe to be demarcating. The midfoot is swollen, as his leg is been dependent for the last several days. This is due to his rest pain. Mild cellulitis around the foot is somewhat better with IV antibiotics. He has an audible signal at the DP. His ABIs are 0.9, although toe pressure 0. His TC PO2 at the forefoot is 19. CTA several days ago showed a continued small pseudoaneurysm in the groin on the right, as well as decent runoff to the tibioperoneal trunk. Vessels are diffusely diseased below this. His creatinine is 1.3, and his ejection fraction did not improve dramatically with CABG, and remainsapproximately 25-30%. Assessment: This gentleman is suffered an embolic phenomenon to his forefoot, and the wound may be difficult to heal with his current inflow. His pain is severe, nonetheless. We will plan for for debridement early this week. He will also need arteriography and potential angioplasty of his tibial vessels to improve inflow. At that same time, we can likely embolize his residual pseudoaneurysm in the groin. He still has a significant risk of losing his foot. This was conveyed directly to the patient and his family. They would like to proceed with debridement and angiography in the next several days. All risks and benefits reviewed. They are in agreement with this plan. Barbara Martinez RN - 08/07/2017 4:18 PM EST Right lower leg and foot dressed and wrapped by Dr. Mayorga. Pt hypoglycemic at 55 two hours after lunchtime. Ice cream provided (pt request). Dr. Barillas made aware. Change to mealtime insulin dose ordered. Shubham Mayorga MD - 08/07/2017 11:21 AM EST Vascular Surgery Progress Note ID: Gregory Hoang is a 72 y.o. male with a history of HTN, hyperlipidemia, DM, AF on coumdadin, MARIA VICTORIA (on CPAP), CABG x3 on 07/07/2017, now admitted with CLI and cellulitis of the right forefoot. Interval: Admitted Pain controlled Heparin infusion started Antibiotics started for cellulits Subjective: Pain better controlled, but not resolved, denies nausea, vomiting, chest pain or shortness of breath. O: Temp: [36.3 ??C (97.3 ??F)-36.6 ??C (97.9 ??F)] Heart Rate: [62-93] Resp: [17-18] BP: (106-132)/(53-69) SpO2: [96 %-100 %] Heart Rate from SPO2: -- I/O last 3 completed shifts: In: 205 [P.O.:200; I.V.:5] Out: - Physical Exam: General: NAD, resting comfortably CVS: Regular Pulm: Normal work of breathing on room air GI: Soft, non tender, non distended Vasc: Right foot: dusky to mid forefoot. Toes purple and blistering. Some surrounding erythema. Toesare painful, and tender to the touch. Motor function in ankle. Minimal motor function in toes. Neuro: CN 2-12 grossly intact, nonfocal, moving all extremities. Recent Labs 08/07/17 0730 08/06/17 1232 08/04/17 1255 WBC 9.7* 11.8* 15.8* HGB 9.9* 9.9* 9.9* HCT 32.3* 32.0* 31.4* PLATELET 312 326 310 Recent Labs 08/07/17 0730 08/06/17 1232 08/04/17 1255 NA 140 138 136 K 4.5 4.6 5.5* CL 99 97* 97* CO2 29 25 25 BUN 31* 29* 32* CREATININE 1.22 1.33 1.58* CALCIUM 8.5 8.5 8.6 New Imaging ?? None new Assessment: Gregory Hoang is a 72 y.o. male with a history of HTN, hyperlipidemia, DM, AF on coumdadin, MARIA VICTORIA (on CPAP), CABG x3 on 07/07/2017 postop course comlicated by right sided blue toe syndrome (possibly from a right [employer] PSA which has since thrombosed), now admitted with CLI and cellulitis of the right forefoot. Continue pain control, IV antibiotics, and heparin infusion. Given that his disease appears to be diabetic, and tibial - pedal, planning for angiography early this week to delineate anatomy and determine revascularization options. Shubham Mayorga, Vascular Surgery Mira Truong, [facility] - 08/06/2017 8:[address] Vargas for pain medication. Pt in considerable pain and tylenol and tramadol are not available to him until 6455. Plan to try a small dose of oxycodone to see how it affects pain level. [address] Vargas to ask for pain medication for patient. 05.mg oxycodone given. Gretchen Barnes RN - 08/06/2017 4:59 PM EST Gregory Hoang arrived to 514 @ 1630 from the clinic. Oriented to room, call cabello within reach, educated on importance of using prior to getting OOB, AVSS, belongings updated in eDH, bed locked in lowposition, purposeful hourly rounding, bed/chair alarm on. documented in this encounter H&P Notes Viry Starkey MD - 08/09/2017 7:32 AM EST Surgery Interval H&P ID: Gregory Hoang is a 72 y.o. male with a history of HTN, HLD, DM, MARIA VICTORIA who is here for right footdebridement. No changes in health. See todays progress note Patient Vitals for the past 24 hrs: BP Temp Temp src Pulse Resp SpO2 Height Weight 08/09/17 0659 153/81 36.6 ??C (97.9 ??F) Temporal 84 16 99 % 172.7 cm (5' 7.99) 88.5 kg (195 lb 1.7oz) 08/09/17 0643 136/61 36.6 ??C (97.9 ??F) Oral 73 16 99 % - - 08/09/17 0400 - - - - - - 172.7 cm (5' 7.99) 88.5 kg (195 lb 3.2 oz) 08/09/17 0000 115/71 36.2 ??C (97.2 ??F) Tympanic 67 18 100 % - - 08/08/17 2051 108/55 36.7 ??C (98.1 ??F) Tympanic 75 16 99 % - - 08/08/17 1600 111/62 36.7 ??C (98.1 ??F) Oral 73 18 98 % - - 08/08/17 1200 110/60 36.8 ??C (98.2 ??F) Oral 71 18 99 % - - 08/08/17 0824 - - - 96 - - - - 08/08/17 0756 143/76 36.3 ??C (97.3 ??F) Oral - 17 98 % - - NAD, A&O Regular rate Unlabored on RA Soft, NTND RLE: site marked A/P: Gregory Hoang is a 72 y.o. male who presents for the reasons listed above. He has been consented for right foot debridement with possible wound vac placement and serial debridments and wound vacchanges. Procedure and risks have been explained to the patient and all questions were answered. Informed consent has been obtained. Pt is ready for the OR. Viry Starkey MD Maddison Tee MD - 08/06/2017 2:25 PM EST Vascular Surgery History and Physical HPI: Gregory Hoang is a 72 y.o. male with history of HTN, HLD, DMII, MARIA VICTORIA (on CPAP), who was recently admitted with STEMI and underwent CABGx3 (07/07/2017). That hospitalization was complicated by Afib with RVR and he was discharged on coumadin. He represented to the ED on 07/20/2017 with RLE pain and pale forefoot and was found to have subtherapeutic INR (1.5) in addition to a pseudoaneurysm of his R [employer]ANT and bilateral anterior tibial artery occlusions. Patient was discharged to home on lovenox brdige to coumadin with the understanding that his toes would demarcate naturally or he could proceed with amputation of his toes. The pt now has blistering at the forefoot and cyanotic 1st and 2nd toes. In addition he has some blistering at the achilles heel. Pain is severe (always > 8/10) despite narcotics. He is not able to sleep at night. No fevers or chills. Can walk from room to room at home w a cane. Pt is being admitted from clinic for demarcation of toes, blistering at heels, and erythema of foot. Review of Systems: General: Denies fevers, chills, night sweats Neuro: Denies lightheadedness, amaurosis, dysarthria, transient weakness or new headaches HEENT: Denies changes in vision, hearing, smell or difficulty swallowing Pulm: Denies shortness of breath, wheezing or cough Card: Denies chest discomfort, palpitations, orthopnea, dyspnea with exersion or claudication GI: Denies nausea, vomiting, constipation, diarrhea, melana or BRBPR : Denies urinary urgency, frequency, dysuria, hematuria Musc: severe Right foot pain Endo: Denies heat or cold in tolerance Psych: Denies mood changes or feelings of depression or anxiety Past Medical History: Diagnosis Date ??? BPH (benign prostatic hyperplasia) 11/28/2013 ??? CAD (coronary artery disease) ??? Melanoma 2006 mid back ??? Peripheral vascular disease ??? Urinary retention 04/05/2013 Past Surgical History: Procedure Laterality Date ??? PRG SOMATOSENSORY TEST, ANY/ALL PER. NERVES, TRUNK OR HEAD 03/28/2013 FACIAL NERVE MONITORING, SETUP performed by Manny Mcknight MD at [facility] MAIN OR ??? PRO CABG, ARTERIAL, SINGLE N/A 07/07/2017 @CABG, USING ARTERIAL GRAFT;SINGLE ARTERIAL GRAFT (WRVU 33.75) performed by Yuan Retana MD at [facility] MAIN OR ??? PRO CABG, ARTERY-VEIN, TWO N/A 07/07/2017 @CABG, TWO VENOUS GRAFTS & ARTERIAL GRAFT (WRVU 7.93) performed by Yuan Retana MD at [facility] MAIN OR ??? PRO COLONOSCOPY, REMV LESN, SNARE 01/16/2014 COLONOSCOPY, POLYPECTOMY, REMOVAL LESION BY SNARE performed by Nohemi Jaimes MD at [facility] ENDOSCOPY ??? PRO ENDOSCOPY W/VIDEO-ASST VEIN HARVEST, CABG Right 07/07/2017 ENDOSCOPIC HARVEST VEIN(S) FOR CABG (WRVU 0.31) performed by Yuan Retana MD at [facility] MAIN OR ??? PRO THYROIDECTOMY 03/28/2013 THYROIDECTOMY, TOTAL OR COMPLETE performed by Manny Mcknight MD at [facility] MAIN OR Functional Status/Social Hx: Quit smoking 1968 Family Hx: Negative for Thrombosis, Bleeding Disorders Medications: No current facility-administered medications on file prior to encounter. Current Outpatient Prescriptions on File Prior to Encounter Medication Sig Dispense Refill ??? cephalexin (KEFLEX) 500 mg Capsule take 1 capsule by mouth four times a day for 7 days 0 ??? lisinopril (PRINIVIL;ZESTRIL) 2.5 mg Tablet Take 2.5 mg by mouth daily. ??? LORazepam (ATIVAN) 0.5 mg Tablet Take 0.5 mg by mouth as needed. 0 ??? furosemide (LASIX) 20 mg Tablet Take 2 tablets by mouth daily. 60 tablet 3 ??? cefUROXime (CEFTIN) 250 mg Tablet Take 1 tablet by mouth 2 times daily for 10 days. 20 tablet 0 ??? Magnesium Oxide 500 mg Capsule Take 500 mg by mouth 2 times daily. ??? lidocaine (LIDODERM) 5 % Adhesive Patch, Medicated Place one patch on right foot for 12 hours, then remove and do not apply another for 12 hours more. 30 patch 0 ??? clobetasol (TEMOVATE) 0.05 % Solution Apply 1 Application topically 2 times daily. 1 ??? HYDROmorphone (DILAUDID) 2 mg Tablet Take 0.5-1 tablets by mouth every 4 hours as needed for Pain. Take smallest dose needed as infrequently as possible (Patient not taking: Reported on 08/04/2017) 15 tablet 0 ??? traMADol (ULTRAM) 50 mg Tablet Take 1 tablet by mouth every 6 hours as needed for Pain. 20 tablet 0 ??? warfarin (COUMADIN) 2.5 mg Tablet Take 1 tablet by mouth daily. ??? LANTUS SOLOSTAR pen Inject 20 Units subcutaneously nightly. (Patient taking differently: Inject 15 Units subcutaneously nightly.) 15 mL 1 ??? acetaminophen (TYLENOL) 500 mg Tablet Take 2 tablets by mouth every 6 hours as needed for Pain. 30 tablet 1 ??? AMIOdarone (PACERONE) 400 mg Tablet Take 1 tablet by mouth daily. 30 tablet 0 ??? atorvastatin (LIPITOR) 40 mg Tablet Take 1 tablet by mouth every evening. 90 tablet 3 ??? meTOPROLOL tartrate (LOPRESSOR) 25 mg Tablet Take 1 tablet by mouth 2 times daily. 180 tablet 3 ??? insulin lispro (HUMALOG KWIKPEN) Insulin Pen Inject 15-20 Units subcutaneously 3 times daily (with meals). (Patient taking differently: Inject 14 Units subcutaneously 3 times daily (with meals).) 10 mL 1 ??? ACCU-CHEK TERA PLUS TEST STRP Strip 2-3 times daily 100 each 1 ??? metFORMIN (GLUCOPHAGE) 850 mg Tablet Take 1 tablet by mouth 2 times daily (with meals). 60 tablet 12 ??? BD INSULIN PEN NEEDLE UF MINI 31 gauge x 3/16 Needle 1 each by Other route 4 times daily. 0 ??? levothyroxine (SYNTHROID) 175 mcg Tablet Take 1 tablet by mouth daily. 90 tablet 3 ??? ascorbic acid, vitamin C, (VITAMIN C) 500 mg Tablet Take 500 mg by mouth daily. Winter months only ??? turmeric root extract 500 mg Capsule Take 500 mg by mouth 2 times daily. ??? fish oil-omega-3 fatty acids 1,000 mg Capsule Take 2 g by mouth daily. ??? aspirin 81 mg EC tablet Take 81 mg by mouth every other day. ??? fluocinolone acetonide (SYNALAR) 0.01 % external solution Twice daily to less severe areas of psoriasis (Patient not taking: Reported on 08/04/2017) 60 mL 2 Allergies: Gabapentin Physical Exam: Temp: -- Heart Rate: [72] Resp: [18] BP: (106)/(59) SpO2: [97 %] Heart Rate from SPO2: -- General: in some pain from foot HEENT: PERRL, anicteric sclerae CVS: Regular rate, +murmur Pulm: Clear bilaterally Abd: soft, non tender, non distended Ext: Right foot: cyanotic 1st and 2nd toes Blistering at toes Blistering w blanching erythema along achilles Left foot: no wounds Unable to wiggle toes on right, can plantar and dorsi flex Neuro: Grossly nonfocal, moving all extremities. Vascular Exam: palpable femoral pulses +PT and peroneal signals bilat R groin: palpable groin lump consistent w diagnosis of thrombosed pseudoaneurysm Labs: Recent Labs 08/06/17 1232 08/04/17 1255 WBC 11.8* 15.8* HGB 9.9* 9.9* HCT 32.0* 31.4* PLATELET 326 310 Recent Labs 08/06/17 1232 08/04/17 1255 NA 138 136 K 4.6 5.5* CL 97* 97* CO2 25 25 BUN 29* 32* CREATININE 1.33 1.58* CALCIUM 8.5 8.6 Imaging: CTA 1. RIGHT common femoral artery small pseudoaneurysm with 3 cm overlying hematoma. 2. Predominantly occluded bilateral anterior tibial arteries, with diminished flow within the RIGHT dorsalis pedis. 3. Predominantly nonopacified bilateral posterior tibial arteries. 4. Heterogeneous splenic enhancement may be sequela phase of contrast, although there are large wedge-shaped areas of nonopacification; splenic infarcts not Excluded. Assessment: Gregory Hoang is a 72 y.o. 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 Post op course complicated by left blue toes with CTA showing R BUSINESS CONTINUITY CONSULTANT pseudoaneurysm (now thrombosed) and occluded ATs bilaterally. Now with demarcated toes on right and some erythema. +PT and peroneal signals on exam. WBC 12. Plan for admit for IV antibiotics. Bilateral TcPO2s. Will require angiogram for tibial imaging and possible intervention. Ultimately he will need a TMA vs BKA depending on findings of the aforementioned studies. Hold coumadin for INR 3.5 on 08/04/17. Start heparin when INR <= 2. Plan: Neuro: tylenol, tramadol CV: asa, lisinopril, amiodarone, atorvastatin Pulm: no issues FEN/GI: carb cont diet Renal: Cr 1.6 Heme: Hgb 10, start heparin when INR<2 Endo: ISS, lantus 15, meal assoc ID: ceftriaxone 2g daily for RLE cellulitis Tubes/Lines/Drains: PIVs Prophylaxis: anticoagulation Dispo: full code, floor status documented in this encounter Procedure Notes Steven Zhang MD - 08/10/2017 10:03 AM EST Vascular Surgery Procedure Note Pre-procedure Dx: Blue toe syndrome Post-procedure Dx: Occluded R AT Procedure: 1. Left femoral arterial access 2. RLE angiogram 3. Selective catheterization of R plantar artery 4. Balloon angioplasty of R PT with Eleazar 2.5x80 5. Completion RLE angiogram 6. L BUSINESS CONTINUITY CONSULTANT angiogram 7. Mynx closure Surgeons: Hank Washington Anesthesia: Conscious sedation, local 8 cc 1% lidocaine Medications: Fentanyl: 200 mcg Versed: 4 mg Heparin: 9000 units Antibiotics: Scheduled ceftriaxone Protamine: 40 mg Fluoro Time: 33.3 min Contrast: 80 cc EBL: 10cc Indications for the Procedure: 72 y.o. male with a history of HTN, hyperlipidemia, DM, AF on coumdadin, MARIA VICTORIA (on CPAP), CABG x3 on 07/07/2017 postop course comlicated by right sided blue toe syndrome (possibly from a right BUSINESS CONTINUITY CONSULTANT PSA which has since thrombosed), now admitted with CLI and cellulitis of the right forefoot. Now 1 Day Post-Op s/p R D1-3 TMA & foot debridement. ?? Plan for arteriogram in IR today of the RLE with intervention as indicated. Findings: - Sheath access in left groin. - Aortogram demonstrated: Widely patent distal aorta, aortic bifurcation, and bilateral iliac systems. - RLE angiogram demonstrated: Widely patent R BUSINESS CONTINUITY CONSULTANT with small amount of flow seen in small pseudoaneurysm. Widely patent R profunda femoris. Widely patent R SFA. Widely patent R popliteal. R AT occludedjust distal to its origin. R TP trunk widely patent. R peroneal widely patent with runoff to the ankle and collateralization onto the foot. R PT patent with mild diffuse disease along its course with runoff to the foot visualized. - Intervention: Balloon angioplasty of R PT with Eleazar 2.5x80 - Completion angiogram demonstrated: Improved flow through the R PT without evidence of dissection or extravasation. Small residual stenosis at the origin of the R plantar artery. R peroneal unchanged.Reconstitution of the R AT and R DP on the foot via collaterals. - L BUSINESS CONTINUITY CONSULTANT angriogram demonstrated: High femoral bifurcation over the proximal half of the femoral head. L BUSINESS CONTINUITY CONSULTANT access in the distal L BUSINESS CONTINUITY CONSULTANT. - Closure device: Mynx Technical Procedure: The patient was correctly identified in the pre-procedure holding area. After a discussion of the risks and benefits, operative consent was obtained. The patient was brought to the angio suite and placed supine upon the angio table. The patient was prepped and draped in the usual sterile fashion. A time-out was performed by the attending surgeon. Retrograde percutaneous access was obtained in the left common femoral artery via micropuncture technique under ultrasound and flouroscopic guidance afterinfiltration with local anesthetic. This was then up-sized to a 10 cm 5F sheath over a J-wire. The wire was advanced into the infra-renal aorta. A 5F omni-flush catheter was advanced into the infrarenal aorta over the wire. Diagnostic aortography was performed with the above findings. The wire and catheter were then used to selectively catheterize the right common iliac artery. The wire and catheter were advanced down to the common femoral artery. The right lower extremity was thenimaged in both stationed and bolus-luis fashion. Findings are as described above. Amplatz wire was advanced and the sheath was exchanged for a 45cm 5F Destination. V18 and [place] and QuickCross catheters were used to select the R PT to the level of the plantar artery. Eleazar 2.5x80 was then used to serially balloon angioplasty the R PT from the foot to the level of the popliteal artery. We did attempt to recanalize the R AT but were unsuccessful. Completion arteriogram was performed in stationed fashion. Findings are as described above. J-wire was advanced and used to exchanged the sheath for a 10cm 5F. A stationed picture of the L BUSINESS CONTINUITY CONSULTANT was performed as the patient was noted to have a very high bifurcation. Access appeared in the distal R BUSINESS CONTINUITY CONSULTANT. Closure and sheath removal was performed with a Mynx under flouroscopic guidance. Direct pressure was held for 20 minutes. Excellent hemostasis was achieved. The puncture site was dressed witha dry gauze and tegaderm. Dr. Washington, the attending surgeon, was scrubbed and present for the entire procedure. Due to thepainful nature of the procedure, split doses of fentanyl and Versed were administered by the IR nurse during continuous monitoring of pulse, blood pressure and oxygen saturation. Closure method: Mynx Complications: None apparent Disposition: Flat for 4 hours CBC now and in 4 hours Hold heparin drip Bedrest Continue antibiotics Associated attestation - Trinidad Washington MD - 08/10/2017 1:31 PM EST Attending Attestation I was the attending physician supervising the resident/fellow in the above care and I was present with the resident/fellow for the entire procedure. I was present during the intraservice time as documented by the sedation RN. documented in this encounter Nursing Notes Eleno Gillespie RN - 08/11/2017 2:51 PM EST 1440 report called to 5 [place] nurse Tessa AGUSTIN documented in this encounter Miscellaneous Notes Plan of Care - Dory Truong RN - 08/16/2017 10:51 AM EST Problem: Patient Care Overview Goal: Plan of Care Review Outcome: Outcome (s) achieved Date Met: 08/16/17 08/14/17 1939 08/16/17 0751 Coping/Psychosocial Plan Of Care Reviewed With -- patient Plan of Care Review Progress improving -- Discussed discharge instructions with pt and pt's spouse. Discharge to [facility]. Goal: Individualization & Mutuality Outcome: Outcome (s) achieved Date Met: 08/16/17 08/08/17 2300 Mutuality/Individual Preferences What Anxieties, Fears or Concerns Do You Have About Your Health or Care? I'm anxious about the surgery. What Questions Do You Have About Your Health or Care? None. What Information Would Help Us Give You More Personalized Care? None. Goal: Fall Prevention-Safe Patient Handling Outcome: Outcome (s) achieved Date Met: 08/16/17 08/16/17 0000 08/16/17 0739 08/16/17 075 Positioning Body Position -- -- -- Activity Activity Type -- -- -- Activity Assistance Provided -- assistance, stand-by -- Assistive Device Utilized front-wheel walker -- -- Daily Care Interventions Self-Care Promotion -- independence encouraged;BADL personal objects within reach;BADL personal routines maintained -- Restraint Interventions Safety Promotion/Fall Prevention -- fall prevention program maintained;activity supervised;nonskid shoes/slippers when out of bed;safety round/check completed -- Mark Fall Risk History of Falling -- -- 25 Secondary Diagnosis -- -- 15 Ambulatory Aids -- -- 15 Intravenous Therapy/Heparin/Saline Lock -- -- 20 Gait/Transferring -- -- 10 Mental Status -- -- 0 Score -- -- 85 OTHER Mark Fall Risk -- -- High 08/16/17 1023 Positioning Body Position up in chair Activity Activity Type up in chair Activity Assistance Provided -- Assistive Device Utilized -- Daily Care Interventions Self-Care Promotion -- Restraint Interventions Safety Promotion/Fall Prevention -- Mark Fall Risk History of Falling -- Secondary Diagnosis -- Ambulatory Aids -- Intravenous Therapy/Heparin/Saline Lock -- Gait/Transferring -- Mental Status -- Score -- OTHER Mark Fall Risk -- Goal: Infection Control Outcome: Outcome (s) achieved Date Met: 08/16/17 08/16/17 0739 08/16/17 075 Safety Interventions Isolation Precautions standard precautions maintained -- Infection Prevention rest/sleep promoted;environmental surveillance performed;single patient room provided -- Coping Strategies Supportive Measures -- active listening utilized;goal setting facilitated;positive reinforcement provided;problem solving facilitated;self- care encouraged;verbalization of feelings encouraged Goal: Discharge Needs Assessment Outcome: Outcome (s) achieved Date Met: 08/16/17 08/07/17 1622 08/08/17 2300 08/16/17 1047 Discharge Needs Assessment Concerns To Be Addressed adjustment to diagnosis/illness concerns -- -- Readmission Within The Last 30 Days current reason for admission unrelated to previous admission -- -- Provider Choice List(s) Given -- -- no Equipment Needed After Discharge bath bench;walker, rolling;wheelchair;wound care supplies -- -- Discharge Disposition still a patient -- -- Current Health Anticipated Changes Related to Illness inability to care for self -- -- Activity/Self Care Review of Systems Equipment Currently Used at Home cane, straight -- -- Living Environment Transportation Available -- car;family or friend will provide -- Goal: Interdisciplinary Rounds/Family Conf Outcome: Outcome (s) achieved Date Met: 08/16/17 08/15/17 1856 Interdisciplinary Rounds/Family Conf Participants nursing;family;physician Problem: Tissue Perfusion, Ineffective Peripheral (Adult) Goal: Identify Related Risk Factors and Signs and Symptoms Related risk factors and signs and symptoms are identified upon initiation of Human Response Clinical Practice Guideline (CPG) Outcome: Outcome (s) achieved Date Met: 08/16/17 08/07/17 16208/16/17 0528 Tissue Perfusion, Ineffective Peripheral Tissue Perfusion, Ineffective Peripheral: Related Risk Factors -- diabetes mellitus;arterial flow reduced;disease process Signs and Symptoms (Ineffective Peripheral Tissue Perfusion) aching pain;capillary refill: greater than 3 seconds (adult);edema;pain at rest;peripheral pulses absent/decreased;shiny/taut skin;skin color changes -- Goal: Adequate Tissue Perfusion Patient will demonstrate the desired outcomes by discharge/transition of care. Outcome: Outcome (s) achieved Date Met: 08/16/17 08/16/17 104 Tissue Perfusion, Ineffective Peripheral (Adult) Adequate Tissue Perfusion achieves outcome Problem: Skin Integrity Impairment, Risk/Actual (Adult) Goal: Identify Related Risk Factors and Signs and Symptoms Related risk factors and signs and symptoms are identified upon initiation of Human Response Clinical Practice Guideline (CPG) Outcome: Outcome (s) achieved Date Met: 08/16/17 08/14/17 1938 08/16/17 0527 Skin Integrity Impairment, Risk/Actual Skin Integrity Impairment, Risk/Actual: Related Risk Factors age extremes;edema;infection/disease process;surgery/procedure -- Signs and Symptoms (Skin Integrity Impairment) -- inflammation Goal: Skin Integrity/Wound Healing Patient will demonstrate the desired outcomes by discharge/transition of care. Outcome: Outcome (s) achieved Date Met: 08/16/17 08/16/17 1047 Skin Integrity Impairment, Risk/Actual (Adult) Skin Integrity/Wound Healing achieves outcome Problem: Pain, Acute (Adult) Goal: Identify Related Risk Factors and Signs and Symptoms Related risk factors and signs and symptoms are identified upon initiation of Human Response Clinical Practice Guideline (CPG) Outcome: Outcome (s) achieved Date Met: 08/16/17 08/16/17 0527 Pain, Acute Related Risk Factors (Acute Pain) surgery;infection Signs and Symptoms (Acute Pain) BADLs/IADLs reluctance/inability to perform;verbalization of pain descriptors Goal: Acceptable Pain Control/Comfort Level Patient will demonstrate the desired outcomes by discharge/transition of care. Outcome: Outcome (s) achieved Date Met: 08/16/17 08/16/17 104 Pain, Acute (Adult) Acceptable Pain Control/Comfort Level achieves outcome Problem: Acute Rehab Services Goal & Intervention Plan Goal: Bed Mobility Goal Stand Alone Therapy Goal Outcome: Outcome (s) achieved Date Met: 08/16/17 08/11/17 1310 08/14/17 1531 Bed Mobility Goal Bed Mobility Goal, Date Established 08/11/17 -- Bed Mobility Goal, Time to Achieve 5 - 7 days -- Bed Mobility Goal, Activity Type supine to sit/sit to supine -- Bed Mobility Goal, [place] Level independent -- Bed Mobility Goal, Date Goal Reviewed -- 08/14/17 Bed Mobility Goal, Outcome Achieved -- goal ongoing Goal: Occupational Therapy Goal Stand Alone Therapy Goal Outcome: Outcome (s) achieved Date Met: 08/16/17 08/12/17 1536 08/16/17 1047 Occupational Therapy Goal OT Goal, Date Established 08/12/17 -- OT Goal, Time to Achieve 5 - 7 days -- OT Goal, Activity Type Pt's will demonstrate ability to facilitate safe mobility for ADL performance at home. -- OT Goal, Outcome -- goal met Goal: Toileting Goal Stand Alone Therapy Goal Outcome: Outcome (s) achieved Date Met: 08/16/17 08/12/17 1536 08/16/17 1047 Toileting Goal Toileting Goal, Date Established 08/12/17 -- Toileting Goal, Time to Achieve 5 - 7 days -- Toileting Goal, Activity Type Pt will transfer on/off commode maintaining WBing status. -- Toileting Goal, Outcome -- goal met Goal: Goal Transfer Training Stand Alone Therapy Goal Outcome: Outcome (s) achieved Date Met: 08/16/17 08/11/17 1310 08/14/17 1531 Goal Transfer Training Transfer Training Goal, Date Established 08/11/17 -- Transfer Training Goal, Time to Achieve 5 - 7 days -- Transfer Training Goal, Activity Type [id number]-[id number] -- Transfer Train Goal, [place] Level conditional independence -- Transfer Train Goal, Date Goal Reviewed -- 08/14/17 Transfer Training Goal, Outcome -- goal ongoing Plan of Care - Mira Truong RN - 08/16/2017 5:36 AM EST Problem: Patient Care Overview Goal: Plan of Care Review Outcome: Ongoing (Interventions Implemented as Appropriate) 08/14/17 19308/15/172029 Coping/Psychosocial Plan Of Care Reviewed With -- patient Plan of Care Review Progress improving -- OUTCOME EVALUATION NOTE: OUTCOME SUMMARY: Vital signs for past 24 H Temp: [36 ??C (96.8 ??F)-37 ??C (98.6 ??F)] Heart Rate: [65-81] Resp: [16-18] BP: (95-157)/(58-76) SpO2: [94 %-98 %] Heart Rate from SPO2: -- A&O x4, strengths 5/5 for all, PERRL, VSS. Systems WNL. Pain managed only moderately effectivelywith prn dilaudid and tylenol. Lidoderm patch utilized for topical relief of foot pain. Patient refuses to lay in bed with foot elevated. Patient states that pain is increased to unbearable level if helays down. Feet remain quite red and edematous with taught skin. Patient slept for only a portion ofthe night, remaining in the chair per his preference. PLAN MOVING FORWARD: Continue to monitor patient progress with treatment. Discharge planning INDIVIDUALIZED FALL PREVENTION INTERVENTIONS : Pt at RISK OF FALLS. Patient-specific fall risk factors per assessment: [current deficits]: Limit hip Flexion Wear weight baring shoe when ambulating with assist Discharge planning Assistance [level of assistance required for transfers and ambulation]: 1-2 assist, shoe Supervision [direct monitoring required during toileting and ADLs]: Monitoring during toileting and ADLs hands on Surveillance [continuous indirect monitoring]: Bed locked in low position, call cabello within reach, Hourly rounding by RN/GEOLOGICAL SAMPLE TESTER. Bed alarm / Chair alarm. Patient-specific fall prevention interventions for sensory deficits provided, if applicable: [X] Yes CPG GOAL OUTCOME EVALUATION: Goal: Individualization & Mutuality Outcome: Ongoing (Interventions Implemented as Appropriate) 08/08/172299 Mutuality/Individual Preferences What Anxieties, Fears or Concerns Do You Have About Your Health or Care? I'm anxious about the surgery. What Questions Do You Have About Your Health or Care? None. What Information Would Help Us Give You More Personalized Care? None. Goal: Fall Prevention-Safe Patient Handling Outcome: Ongoing (Interventions Implemented as Appropriate) 08/15/17202908/16/17 0000 Positioning Body Position -- up in chair;independent Activity Activity Type -- activity adjusted per tolerance Activity Assistance Provided -- assistance, 1 person Assistive Device Utilized -- front-wheel walker Daily Care Interventions Self-Care Promotion independence encouraged;BADL personal objects within reach;BADL personal routines maintained -- Restraint Interventions Safety Promotion/Fall Prevention -- safety round/check completed;nonskid shoes/slippers when out of bed;fall prevention program maintained;activity supervised Mark Fall Risk History of Falling 25 -- Secondary Diagnosis 15 -- Ambulatory Aids 15 -- Intravenous Therapy/Heparin/Saline Lock 20 -- Gait/Transferring 10 -- Mental Status 0 -- Score 85 -- OTHER Mark Fall Risk High -- Goal: Infection Control 08/15/17202908/16/17 0000 Safety Interventions Isolation Precautions -- standard precautions maintained Infection Prevention -- rest/sleep promoted;single patient room provided;environmental surveillance performed Coping Strategies Supportive Measures active listening utilized;decision-making supported;positive reinforcement provided;problem solving facilitated;self-care encouraged;verbalization of feelings encouraged -- Goal: Discharge Needs Assessment Outcome: Ongoing (Interventions Implemented as Appropriate) 08/07/17162108/08/172299 Discharge Needs Assessment Concerns To Be Addressed adjustment to diagnosis/illness concerns -- Readmission Within The Last 30 Days current reason for admission unrelated to previous admission -- Equipment Needed After Discharge bath bench;walker, rolling;wheelchair;wound care supplies -- Discharge Disposition still a patient -- Current Health Anticipated Changes Related to Illness inability to care for self -- Activity/Self Care Review of Systems Equipment Currently Used at Home cane, straight -- Living Environment Transportation Available -- car;family or friend will provide Goal: Interdisciplinary Rounds/Family Conf Outcome: Ongoing (Interventions Implemented as Appropriate) 08/15/17 1856 Interdisciplinary Rounds/Family Conf Participants nursing;family;physician Plan of Care - Chiquis Mcgrath RN - 08/15/2017 6:59 PM EST Problem: Patient Care Overview Goal: Plan of Care Review Outcome: Ongoing (Interventions Implemented as Appropriate) 08/14/17 1939 08/15/17 0806 Coping/Psychosocial Plan Of Care Reviewed With -- patient;spouse Plan of Care Review Progress improving -- OUTCOME EVALUATION NOTE: OUTCOME SUMMARY: Patient ambulating around room with SBA FWW. Tolerated well. Wound vac care performed by MD. Pain managed with prns. Waiting on placement for rehab. PLAN MOVING FORWARD: Discharge planning. INDIVIDUALIZED FALL PREVENTION INTERVENTIONS: Patient-specific fall risk factors per assessment: Medical equipment, toe amputation Assistance: SBA, FWW Supervision: Arms reach Surveillance: Bed locked in low position, call cabello within reach, purposeful hourly rounding, clutter free environment, bed/chair alarm on, family at bedside Patient-specific fall prevention interventions for sensory deficits provided: N/A CPG GOAL OUTCOME EVALUATION: Continue care plan as documented. Op Note - Yonathan Smith MD - 08/15/2017 6:28 PM EST [facility] [place] Patient Name: Gregory Hoang : [id number] MR#: [id number] Case Date: 08/09/2017 Surgeon: Surgeon(s) and Role: * Yonathan Smith MD - Primary Preoperative diagnosis: right necrotic toes Postoperative diagnosis: right necrotic toes Procedure(s) (LRB): AMPUTATION, TRANSMETATARSAL (WRVU 12.71) (Right) Anesthesia: Regional Estimated Blood Loss: * No values recorded between 08/09/2017 8:22 AM and 08/09/2017 8:42 AM * Disposition: awakened from anesthesia, extubated and taken to the recovery room in a stable condition, having suffered no apparent untoward event. Condition: doing well without problems (Please see the Surgical Encounter Summary for any Implant and Specimen details pertinent to this patient.) HPI/Surgical Indications: Patient presents with RIGHT forefoot atheroembolism. His great toe and 2ndand 3rd toes are necrotic. He presents for amputation of same. Procedure Description: All risks and benefits were reviewed by both the surgeon and the patient. Site was marked, consent was obtained. Patient brought to operating room and placed supine on the OR table. Anesthesia provided, and foot was prepped and draped in a sterile fashion. The great toe on the right foot, as well as the second and third toes, were amputated sharply at their base using a 10 blade. Ronguer was used to divide the bony attachments. The metatarsal heads of all three metatarsals were widely debrided back to health bone. Cultures were sent. The wounds were copiously irrigated, and hemostasis assured. The wounds were packed open. The patient tolerated the procedure well. All counts c orrect. Attestation: Case Date: 08/09/2017 I was present and I participated during the entire procedure (does not need to include opening and closing). YONATHAN SMITH MD 08/15/2017 Plan of Care - Henrique Marks RN - 08/15/2017 4:08 AM EST Problem: Patient Care Overview Goal: Plan of Care Review Outcome: Ongoing (Interventions Implemented as Appropriate) 08/14/17 1531 08/14/17 1939 Coping/Psychosocial Plan Of Care Reviewed With patient;spouse -- Plan of Care Review Progress -- improving OUTCOME EVALUATION NOTE: OUTCOME SUMMARY: Pt is A/O carrington4, Carrie MICHELLE /. Pt required around the clock PRN dilaudid for pain at the amputation site. Pt was able to sleep through a portion of the shift. PLAN MOVING FORWARD: SNF INDIVIDUALIZED FALL PREVENTION INTERVENTIONS: rounding, SBA Patient-specific fall risk factors per assessment: Wound vac on R foot Assistance: SBA, 1-2 assist, Supervision: Arms reach, Hands on Surveillance: Bed locked in low position, call cabello within reach, purposeful hourly rounding, clutter free environment, Patient-specific fall prevention interventions for sensory deficits provided: no CPG GOAL OUTCOME EVALUATION: Continue care plan as documented. Plan of Care - Chiquis Mcgrath RN - 08/14/2017 7:42 PM EST Problem: Patient Care Overview Goal: Plan of Care Review Outcome: Ongoing (Interventions Implemented as Appropriate) 08/14/17 1531 08/14/17 1939 Coping/Psychosocial Plan Of Care Reviewed With patient;spouse -- Plan of Care Review Progress -- improving OUTCOME EVALUATION NOTE: OUTCOME SUMMARY: PT and care management working with patient and family today. Pain managed throughout the shift. Will continue to monitor. PLAN MOVING FORWARD: Discharge planning. INDIVIDUALIZED FALL PREVENTION INTERVENTIONS: Patient-specific fall risk factors per assessment: Medical equipment, toe amputations Assistance: 1 assist, FWW, Stand & Pivot Supervision: Hands on Surveillance: Bed locked in low position, call cabello within reach, purposeful hourly rounding, clutter free environment, bed/chair alarm on, family at bedside Patient-specific fall prevention interventions for sensory deficits provided: N/A CPG GOAL OUTCOME EVALUATION: Continue care plan as documented. Plan of Care - Bassam Elias, PT - 08/14/2017 3:43 PM EST Problem: Patient Care Overview Goal: Plan of Care Review Outcome: Ongoing (Interventions Implemented as Appropriate) 08/14/17 1531 Coping/Psychosocial Plan Of Care Reviewed With patient;spouse Plan of Care Review Progress progress toward functional goals as expected Physical Therapy Treatment Number: 2 Pertinent History of Current Problem: Pertinent History of Current Problem: Gregory Hoang is a 72 y.o. male with a history of HTN, hyperlipidemia, DM, AF on coumdadin, MARIA VICTORIA (on CPAP), CABG x3 on 07/07/2017, now admitted with CLI and cellulitis of the right forefoot. S/p OR for R D1-3 TMA & foot debridement on 08/09 and to IR on 07/31 for 1. Left femoral arterial access 2. RLE angiogram 3. Selectivecatheterization of R plantar artery 4. Balloon angioplasty of R PT with Eleazar 2.5x80 5. Completion RLE angiogram 6. L BUSINESS CONTINUITY CONSULTANT angiogram 7. Mynx closure Precautions/Restrictions: fall, sternal Precautions Comments: No hip flexion>90deg for >20min. Per verbal order from vascular MD: OK to use flat post-op shoe, R heel weightbearing only, otherwise NWB. Limit mobility to transfers and very short distance (bed>bathroom) only. Pt seen today for therex and functional mobility. Pt presents with limitations in ROM, strength, transfers and gait. He needs VCs and CGA for transfers and close supervision, VCs and assist for wound vac for ambulating 5 feet with FWW. Pt tolerated rx well and is demonstrating functional gains but would benefit from ongoing therapies (OT and PT) to maximize his independence and safety with mobility prior to going home. Both he and his are fearful that he is not safe with transfers and gait and may have a fall at home. Due to the limitations in his activity level (see precautions above), he would not be able to participate in three hours of therapy a day as required for acute rehab but he would benefit from ongoing therapy in a SNF or swing level of care. Please see the Rehab Evaluation Summaries report for objective data and specifics of today???s session. Staff Mobility Recommendations: VCs for precautions (wt bearing, limiting hip flexion > 90 for > 20 minutes), CGA for transfers, close supervision for gait short distances (~ 5 feet/ bed -> bathroom). Anticipated Discharge Disposition: group home facility, other (see comments) (or swing bed) Pager: [phone] BASSAM ELIAS, PT 08/14/2017 Inpatient Physical Therapy Problem: Acute Rehab Services Goal & Intervention Plan Goal: Bed Mobility Goal Stand Alone Therapy Goal Outcome: Ongoing (Interventions Implemented as Appropriate) 08/14/17 1531 Bed Mobility Goal Bed Mobility Goal, Date Goal Reviewed 08/14/17 Bed Mobility Goal, Outcome Achieved goal ongoing Goal: Gait Training Goal Stand Alone Therapy Goal Outcome: Revised Date Met: 08/14/17 08/14/17 1531 Gait Training Goal Gait Training Goal, Date Established 08/14/17 Gait Training Goal, Time to Achieve by discharge Gait Training Goal, [place] Level conditional independence;set up required Gait Training Goal, Assist Device walker, rolling Gait Training Goal, Distance to Achieve 5 Gait Training Goal, Additional Goal maintain heel wt bearing on right Gait Training Goal, Date Goal Reviewed 08/14/17 Goal: Goal Transfer Training Stand Alone Therapy Goal Outcome: Ongoing (Interventions Implemented as Appropriate) 08/14/17 1531 Goal Transfer Training Transfer Train Goal, Date Goal Reviewed 08/14/17 Transfer Training Goal, Outcome goal ongoing Care Management - Naty Franco RN - 08/14/2017 11:51 AM EST Spoke with Bassam Elias PT who has seen patient and family and recommended patient may benefit from SNF/ Swing stay. Given mobility restrictions, PT does not anticipate that patient will be appropriate for acute rehabstay. Discussed this with patient and who understand and are in agreement with making referrals to Swing beds and not SNF beds. They are asking for referrals to and they were hoping that he might be able to move this weekend. CMtold patient and that Care Management is not available at these facilities over the weekend except for [facility]. CM spoke with [facility] CM Drea Sandhu, VAMSI who said that they do not anticipate any beds over the weekend. Reviewed with patient/ that they need to be aware that patient will need to take the first bed offered at the facilities that they make referrals to. Their choices are: 1- [facility] PHONE: [phone] FAX: [phone] 2- [facility] ([facility]) [address] [place] [address] 3- [facility]) [address] [place] [address] I have discussed Medicare/Private Insurance reimbursement guidelines for ambulance transport. Discussed transportation options and patient and would like to have transport him. CM said that team would need to talk with Dr. Smith to see if patient would need his extremity elevated for the duration of the transport and to confirm that wound vac could be removed for the duration of the transport. Will ask RS to upload referrals to facilities and will ask RS/CM on Wednesday to follow-up. Covering pager #[phone] for today. Plan of Care - Henrique Marks RN - 08/14/2017 5:49 AM EST Problem: Patient Care Overview Goal: Plan of Care Review Outcome: Ongoing (Interventions Implemented as Appropriate) 08/12/17 1510 08/13/171999 Coping/Psychosocial Plan Of Care Reviewed With -- patient Plan of Care Review Progress improving -- OUTCOME EVALUATION NOTE: OUTCOME SUMMARY: Pt is A/O x4, PERRLA, Strengths 11/27. Pt required around the clock PRN dilaudid for pain at the amputation site. Pt was able to sleep through a portion of the shift. Pt had a BM. PLAN MOVING FORWARD: D/C home INDIVIDUALIZED FALL PREVENTION INTERVENTIONS: SBA, rounding Patient-specific fall risk factors per assessment: wound vac on R foot. Assistance: SBA, 1-2 assist, Supervision: Arms reach, Hands on Surveillance: Bed locked in low position, call cabello within reach, purposeful hourly rounding, clutter free environment Patient-specific fall prevention interventions for sensory deficits provided: no CPG GOAL OUTCOME EVALUATION: Continue care plan as documented. Consult Note - Karo Henderson MD - 08/13/2017 8:31 AM EST Images from the original note were not included. DERMATOLOGY - INPATIENT CONSULT NOTE Place of Service: Vascular surgery Reason for Consult: We are seeing Mr. Gregory Hoang at the request of Yonathan Smith MD for the evaluation of skin changes to left foot, right posterior calf and right heel. I have personally reviewed the available records, interviewed, and examined the patient. History of Present Illness: Mr. Gregory Hoang is a 72 y.o. 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 It all started when pt was admitted for STEMI and underwent CABGx3 (07/07/2017); hospitalization complicated by AFIB w RVR and was d/c on warfarin. Presented to the ED on 07/20/2017 for RLE pain and pale forefoot -- INR subtherapeutic at 1.5 with additional findings of pseudoaneurysm on R BUSINESS CONTINUITY CONSULTANT and bilateral anterior tibial artery occlusions. Was discharged to home on Lovenox bridge to warfarin. Subsequently developed blistering of the forefoot and cyanotic 1st and 2nd toes on the R. Very painful, 8/10. Was admitted on 08/06/2017 for cellulitis (started IV ABX) and amputation for necroses digits. On admission, WBC 11.8, afebrile. Afebrile since admission. Reports that the blistering happened about two weeks ago and occurred at around the same time as when both feet and legs were very swollen and painful. The bullae were large and fluid filled--somewhatitchy but not significantly. Blisters developed first on the R foot, followed by the R calf, before migrating to the L foot. Denies any trauma or puncture wounds to the feet. No blisters elsewhere on the body, including trunk, arms, face and thighs. No blisters or erosions in the mouth, eyes, or genitals. Bullae quickly resolved and has not had a new one for the past week or so. Past Dermatologic History: Melanoma mid back. Past Medical History: Diagnosis Date ??? BPH (benign prostatic hyperplasia) 11/28/2013 ??? CAD (coronary artery disease) ??? Melanoma 2006 mid back ??? Peripheral vascular disease ??? Urinary retention 04/05/2013 Past Surgical History: Thyroidectomy 2013 CABG x3 on 07/07/2017 08/06/17: right 1st, 2nd and 3rd toe amputation 08/10/16: balloon angioplasty of R PT 08/11/17: partial closure and wound vac application to toe amputation site Prior To Admission Medications: Prescriptions Prior to Admission Medication Sig Dispense Refill Last Dose ??? cephalexin (KEFLEX) 500 mg Capsule take 1 capsule by mouth four times a day for 7 days 0 ??? lisinopril (PRINIVIL;ZESTRIL) 2.5 mg Tablet Take 2.5 mg by mouth daily. Taking at Unknown time ??? LORazepam (ATIVAN) 0.5 mg Tablet Take 0.5 mg by mouth as needed. 0 prn ??? furosemide (LASIX) 20 mg Tablet Take 2 tablets by mouth daily. 60 tablet 3 ??? cefUROXime (CEFTIN) 250 mg Tablet Take 1 tablet by mouth 2 times daily for 10 days. 20 tablet 0 prn ??? Magnesium Oxide 500 mg Capsule Take 500 mg by mouth 2 times daily. Taking at Unknown time ??? lidocaine (LIDODERM) 5 % Adhesive Patch, Medicated Place one patch on right foot for 12 hours, then remove and do not apply another for 12 hours more. 30 patch 0 Taking at Unknown time ??? clobetasol (TEMOVATE) 0.05 % Solution Apply 1 Application topically 2 times daily. 1 prn ??? HYDROmorphone (DILAUDID) 2 mg Tablet Take 0.5-1 tablets by mouth every 4 hours as needed for Pain. Take smallest dose needed as infrequently as possible (Patient not taking: Reported on 08/04/2017) 15 tablet 0 prn ??? traMADol (ULTRAM) 50 mg Tablet Take 1 tablet by mouth every 6 hours as needed for Pain. 20 tablet 0 Not Taking at Unknown time ??? warfarin (COUMADIN) 2.5 mg Tablet Take 1 tablet by mouth daily. Taking at Unknown time ??? LANTUS SOLOSTAR pen Inject 20 Units subcutaneously nightly. (Patient taking differently: Inject 15 Units subcutaneously nightly.) 15 mL 1 Taking at Unknown time ??? acetaminophen (TYLENOL) 500 mg Tablet Take 2 tablets by mouth every 6 hours as needed for Pain. 30 tablet 1 Taking at Unknown time ??? AMIOdarone (PACERONE) 400 mg Tablet Take 1 tablet by mouth daily. 30 tablet 0 Taking at Unknown time ??? atorvastatin (LIPITOR) 40 mg Tablet Take 1 tablet by mouth every evening. 90 tablet 3 Taking at Unknown time ??? meTOPROLOL tartrate (LOPRESSOR) 25 mg Tablet Take 1 tablet by mouth 2 times daily. 180 tablet 3 Taking at Unknown time ??? insulin lispro (HUMALOG KWIKPEN) Insulin Pen Inject 15-20 Units subcutaneously 3 times daily (with meals). (Patient taking differently: Inject 14 Units subcutaneously 3 times daily (with meals).) 10 mL 1 Taking at Unknown time ??? ACCU-CHEK TERA PLUS TEST STRP Strip 2-3 times daily 100 each 1 Taking at Unknown time ??? metFORMIN (GLUCOPHAGE) 850 mg Tablet Take 1 tablet by mouth 2 times daily (with meals). 60 tablet 12 Taking at Unknown time ??? BD INSULIN PEN NEEDLE UF MINI 31 gauge x 3/16 Needle 1 each by Other route 4 times daily. 0 Taking at Unknown time ??? levothyroxine (SYNTHROID) 175 mcg Tablet Take 1 tablet by mouth daily. 90 tablet 3 Taking at Unknown time ??? ascorbic acid, vitamin C, (VITAMIN C) 500 mg Tablet Take 500 mg by mouth daily. Winter months only Not Taking at Unknown time ??? turmeric root extract 500 mg Capsule Take 500 mg by mouth 2 times daily. Not Taking at Unknown time ??? fish oil-omega-3 fatty acids 1,000 mg Capsule Take 2 g by mouth daily. Taking at Unknown time ??? aspirin 81 mg EC tablet Take 81 mg by mouth every other day. Taking at Unknown time ??? fluocinolone acetonide (SYNALAR) 0.01 % external solution Twice daily to less severe areas of psoriasis (Patient not taking: Reported on 08/04/2017) 60 mL 2 prn Current Medications: Scheduled medications: ??? senna 8.6 mg Oral BID ??? docusate sodium 100 mg Oral BID ??? warfarin 2.5 mg Oral Once ??? enoxaparin 130 mg Subcutaneous Nightly ??? warfarin (COUMADIN) daily order reminder Oral Q24H ??? melatonin 3 mg Oral Nightly ??? insulin lispro 11 Units Subcutaneous TID WC ??? acetaminophen 1,000 mg Oral Q6H While awake ??? AMIOdarone 400 mg Oral Daily ??? ascorbic acid (vitamin C) 500 mg Oral Daily ??? aspirin 81 mg Oral Every Other Day ??? atorvastatin 40 mg Oral QPM ??? furosemide 40 mg Oral Daily ??? levothyroxine 175 mcg Oral QAM ??? lisinopril 2.5 mg Oral Daily ??? magnesium oxide 400 mg Oral BID ??? meTOPROLOL tartrate 25 mg Oral BID ??? cefTRIAXone 2 g Intravenous Q24H ??? insulin lispro 2-8 Units Subcutaneous Q4H LUZ ??? insulin glargine 15 Units Subcutaneous Nightly ??? lidocaine 1 patch Transdermal Q24H And ??? lidocaine 1 patch Transdermal Q24H ??? sodium chloride 0.9 % 5 mL Intravenous Q12H PRN medications: ??? bisacodyl (DULCOLAX) suppository 10 mg 10 mg Rectal Daily PRN ### ??? polyethylene glycol (MIRALAX) packet 17 g 17 g Oral Daily PRN ### ??? lidocaine (XYLOCAINE) 10 mg/mL (1 %) injection Once PRN ### ??? HYDROmorphone (DILAUDID) tablet 2-4 mg 2-4 mg Oral Q3H PRN ### ??? LORazepam (ATIVAN) tablet 0.5 mg 0.5 mg Oral Q6H PRN ### ??? dextrose 50% IV syringe 25-50 mL 12.5-25 g Intravenous Q1H PRN ### Or ??? glucagon (human recombinant) injection SolR 1 mg 1 mg Intramuscular Q1H PRN ### ??? sodium chloride 0.9 % flush 5-20 mL 5-20 mL Intravenous Q1 Min PRN ### ??? lidocaine (XYLOCAINE) 10 mg/mL (1 %) injection 3 mg 0.3 mL Subcutaneous Once PRN ### Allergies: Gabapentin Family History: No family history on file. Social History and Habits: Doesn't use ETOH. Prior smoker. Marital Status: . Review of Systems: General: Denies fever, chills, fatigue. Eyes: Denies changes of vision. CVS: Denies chest pain/tightness/pressure. Respiratory: Denies SOB, FOURNIER, cough, wheezes. GI: Denies abdominal pain, changes in bowel habits, diarrhea, constipation; no melena, hematochezia. : Denies changes in urinary habits, no urgency, frequency, hesitancy, dysuria. Skin: As per HPI. Physical Exam: Vital Signs: Last Set of Vitals and range of vitals over past 24 hours: Last value Range last 24 hrs Temperature Temp: 36.6 ??C (97.9 ??F) Temp: [36.5 ??C (97.7 ??F)-36.9 ??C (98.4 ??F)] Heart Rate Heart Rate: 80 Heart Rate: [72-83] Blood Pressure BP: 109/63 BP: (109-155)/(63-89) Respiratory Rate Resp: 16 Resp: [16-18] SpO2 SpO2: 99 % SpO2: [96 %-100 %] Examination: - Constitutional: Patient was alert, well-appearing and in no noticeable distress. - Skin: Abbreviated exam was performed of the lower extremities, abdomen, face, mouth, and arms. Specific skin findings: 1. 3+ pitting edema bilaterally of the lower legs. 2. Crusted patches on the L dorsal foot. The R foot was bandaged. No evidence of bullae on the lowerextremities. 3. No erosions seen on the eyes or the mouth. Verbal consent was given by patient to obtain and chart the following pictures: Laboratory (Significant values from last 24 Hours): Reviewed. Only pertinent listed. 08/13 WBC 10.1, Hgb 9.2, Plt 263. BMP wnl. Ca 7.9 Radiology/VASC: 08/13/2017 JULIAN RIGHT: Mild lower extremity arterial occlusive disease. Toe-brachial index substantially lower than ankle-brachial index indicates presence of moderate arterial occlusive disease in the foot. Significant deterioration in Doppler waveforms compared to previous exam. LEFT: Mild lower extremity arterial occlusive disease. Toe-brachial index substantially lower than ankle-brachial index indicates presence of moderate arterial occlusive disease in the foot. Significant deterioration in Doppler waveforms compared to previous exam. No significant change in Toe index. 07/10/2017 CTA of Aorta: IMPRESSION 1. RIGHT common femoral artery small pseudoaneurysm with 3 cm overlying hematoma. 2. Predominantly occluded bilateral anterior tibial arteries, with diminished flow within the RIGHT dorsalis pedis. 3. Predominantly nonopacified bilateral posterior tibial arteries. 4. Heterogeneous splenic enhancement may be sequela phase of contrast, although there are large wedge-shaped areas of nonopacification; splenic infarcts not Excluded. 07/08/2017 1. Intraoperative AVELINO performed at the request of Dr. Mike for the diagnosis and evaluation of hemodynamics, overall cardiac function, and valvular pathologies as indicated. AVELINO probe was passed atraumatically after induction and removed in a similar fashion before emergence. 2. Pre-Bypass: LV was moderatley to severely depressed. EF of 20-30% with RWMA noted as on TTE. The IABP was in good position. AVELINO was used to facilitate CS cannulation. 3. Post-Bypass: Global LV and RV function were improved on inotropes. LVEF is 40 %. There is no change in valvular pathologies. There is no evidence of aortic dissection post decannulation. WHile some global hypokinesis is presetn, all segments showed some inprovement with the mid inferior and anteriro segments likely still more severely dysfunctional. LV diastolic volume is improved from preop as well as global systolic function. 4. The IABP was in good position, and no evidence of aotic dissection was imaged Assessment: Hydrostatic bullae History and findings most consistent with hydrostatic bullae -- a blistering disorders found in the setting of severe edema. In our patient, the acute edema was probably from the necrotic toes, CHF (EFof 20-30%) and thromboembolism. No bullae seen today. Findings and history not consistent w autoimmune blistering disorders such as bullous pemphigoid, epidermolysis bullosa acquisita or infectious bullae. Recommendations: ?? Reduce the edema of the lower extremities (through medical management, or surgical management, and keeping legs elevated at rest). ?? Compression stockings if not contraindicated and cleared by vascular surgery. ?? Follow-up with dermatology as an outpatient once discharged. Have patient call [phone] to set up an appointment. Follow-up: Dermatology will sign-off for now. Please do not hesitate to contact us if you have any questions orconcerns. Impression and Recommendations discussed with primary team on 08/13/2017. Karo Henderson MD Resident in Dermatology Section of Dermatology, Department of Surgery [facility] Pager [phone] Patient seen and evaluated with staff Operations Support Coordinator: Halima Cordero MD Section of Dermatology [facility] Level of Resident Supervision: Direct Supervision (The supervising physician is physically present with the resident and patient). Associated attestation - Halima Cordero MD - 08/14/2017 8:39 AM EST I directly supervised Dr. Henderson in the inpatient consultation of this patient. I saw and evaluated this patient with Dr. Henderson. He presented the history and physical exam details to me, then we saw the patient together and I confirmed these findings. I agree with details as written. My physical examination confirms Dr. Holt findings. The assessment and plan were formulated in dis cussion with me at the time of visit and I agree with them as documented. HALIMA CORDERO MD Staff Physician Plan of Care - Yane Beckwith RN - 08/13/2017 12:38 AM EST Problem: Patient Care Overview Goal: Plan of Care Review Outcome: Ongoing (Interventions Implemented as Appropriate) 08/12/17 1510 08/12/17 1942 Coping/Psychosocial Plan Of Care Reviewed With -- patient Plan of Care Review Progress improving -- OUTCOME EVALUATION NOTE: OUTCOME SUMMARY: Wound vac in place without complications, medicated for pain regularly. Bowel meds ordered and givencolace and senna as well as prune juice. Left lower leg continues to be reddish in color PLAN MOVING FORWARD: Assess pain, assess skin integrity, assess wound INDIVIDUALIZED FALL PREVENTION INTERVENTIONS: Patient-specific fall risk factors per assessment: [current deficits]: Limited TDWB, gait limiting equipment, narcotics Assistance [level of assistance required for transfers and ambulation]: 1 assist with walker Supervision [direct monitoring required during toileting and ADLs]: Direct supervision Surveillance [continuous indirect monitoring]: tita Sinha Patient-specific fall prevention interventions for sensory deficits provided, if applicable: NA CPG GOAL OUTCOME EVALUATION: Plan of Care - Annetta Alexander RN - 08/12/2017 6:57 PM EST Problem: Patient Care Overview Goal: Plan of Care Review Outcome: Ongoing (Interventions Implemented as Appropriate) 08/12/17 1510 08/12/17 1536 Coping/Psychosocial Plan Of Care Reviewed With -- patient;spouse Plan of Care Review Progress improving -- OUTCOME EVALUATION NOTE: OUTCOME SUMMARY: VS stable, pt pleasant, alert and oriented x4. Pt requiring PRN dilaudid every 3 hours this shift, at times, asking for it sooner. Pt up to chair with 1 person assist and walker, declining to use offloading shoe, able to pivot without weight bearing on RLE. Pt and concerned with increasing redness of left foot/leg, MD aware. PLAN MOVING FORWARD: Wound Vac, pain control, IV antibiotics INDIVIDUALIZED FALL PREVENTION INTERVENTIONS: Patient-specific fall risk factors per assessment: [current deficits]: Recent surgery, pain, narcotic use Assistance [level of assistance required for transfers and ambulation]: Up with 1 person assist and walker Supervision [direct monitoring required during toileting and ADLs]: Eyes on Surveillance [continuous indirect monitoring]: Purposeful rounding, [place] Patient-specific fall prevention interventions for sensory deficits provided, if applicable: N CPG GOAL OUTCOME EVALUATION: Plan of Care - Yasir Tello OT - 08/12/2017 3:41 PM EST Problem: Patient Care Overview Goal: Plan of Care Review Outcome: Ongoing (Interventions Implemented as Appropriate) 08/12/17 1536 Coping/Psychosocial Plan Of Care Reviewed With patient;spouse Occupational Therapy Evaluation Pertinent History of Current Problem: Pertinent History of Current Problem: Gregory Hoang is a 72 y.o. male with a history of HTN, hyperlipidemia, DM, AF on coumdadin, MARIA VICTORIA (on CPAP), CABG x3 on 07/07/2017, now admitted with CLI and cellulitis of the right forefoot. S/p OR for R D1-3 TMA & foot debridement on 08/09 and to IR on 07/31 for 1. Left femoral arterial access 2. RLE angiogram 3. Selectivecatheterization of R plantar artery 4. Balloon angioplasty of R PT with Eleazar 2.5x80 5. Completion RLE angiogram 6. L BUSINESS CONTINUITY CONSULTANT angiogram 7. Mynx closure Active Non-Hospital Problems Diagnosis ??? ASHD (arteriosclerotic heart disease) ??? Cardiomyopathy, ischemic ??? 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 STEMI (ST elevation myocardial infarction) ??? Carpal tunnel syndrome ??? Hx of malignant melanoma ??? Hx of thyroid cancer ??? Leg cramps ??? Osteoarthrosis ??? Ischemic foot ??? Dependence on continuous positive airway pressure ventilation ??? Gastroesophageal reflux disease ??? Hearing impaired ??? Hyperlipidemia ??? Hypomagnesemia ??? Peripheral neuropathy ??? Postoperative retention of urine ??? BPH (benign prostatic hyperplasia) ??? Atypical nevus of abdominal wall ??? Urinary retention ??? MARIA VICTORIA (obstructive sleep apnea) on CPAP ??? Goiter ??? Seborrheic psoriasis- scalp and ingtergluteal area ??? Skin lesion of chest wall ??? Melanoma Precautions/Restrictions: fall, sternal Precautions Comments: No hip flexion>90deg for >20min. Per verbal order from vascular MD: OK to use flat post-op shoe, R heel weightbearing only, otherwise NWB. Limit mobility to transfers and very short distance (bed>bathroom) only. Living Environment Comment: Pt lives with his in a home with 4 steps to enter. He has not been using a walker or cane, but has them at home. He is deconditioned from his baseline now s/p CABG and immobility due to leg pain. He has had a fall in the recent past. Prior Functional Level Comment: Pt reports independent with BADL and mobility. Subjective: Patient/Family/Caregiver Comments/Observations: I think I can borrow a wheelchair. Assessment: Pt has been seen by OT for evaluation, please refer to associated flowsheet data for details. Gregory Hoang presents with activity limitations and/or participation restrictions due to decreased activity tolerance, weightbearing restrictions, generalized weakness and deconditioning, impaired standing balance, and mild impulsivity with regards to mobility. These impairments have a significant impact on the patient's performance in the following areas of occupation: BADL, IADL, and functional mobility. Pt tolerated evaluation well. He demonstrated ability to perform stand pivot transferswith CG-min A maintaining heel weightbearing. His participated in last transfer with use of gait belt. Spent significant time educating pt about precautions and ADL at home. Anticipate that pt will d/c home with assist from his and home PT&OT services once medically ready. Pt would benefit from ongoing OT interventions to increase independence with self care and progress functional mobility while hospitalized. Staff Recommendations: Encourage OOB activity and participation in all self care tasks Therapy Frequency: 1-3 more visits Anticipated Equipment Needs at Discharge: (wheelchair (?borrowing from friend)) Anticipated Discharge Disposition: home with assist, home with home health ([facility] PT[facility]) Pager: [phone] YASIR TELLO OT 08/12/2017 Occupational Therapy Rehabilitation Department 2017 OT Evaluation Code Rationale: ?? Diagnosis & Pertinent Co-Morbidities affecting Plan of Care: see PMHx above ?? Occupational Profile & Client History: Brief Expanded Extensive X ?? Assessment of Occupational Performance: 1-3 performance deficits 3-5 performance deficits 5 + performance deficits X ?? Clinical Decision Making: Low Moderate High X Clinical decision making of high complexity using standardized patient assessment instrument and measurable assessment of functional outcome. Problem: Acute Rehab Services Goal & Intervention Plan Goal: Occupational Therapy Goal Stand Alone Therapy Goal Outcome: Ongoing (Interventions Implemented as Appropriate) 08/12/17 1536 Occupational Therapy Goal OT Goal, Date Established 08/12/17 OT Goal, Time to Achieve 5 - 7 days OT Goal, Activity Type Pt's will demonstrate ability to facilitate safe mobility for ADL performance at home. Goal: Toileting Goal Stand Alone Therapy Goal Outcome: Ongoing (Interventions Implemented as Appropriate) 08/12/17 1536 Toileting Goal Toileting Goal, Date Established 08/12/17 Toileting Goal, Time to Achieve 5 - 7 days Toileting Goal, Activity Type Pt will transfer on/off commode maintaining WBing status. Plan of Care - Nicholas Mora, PT - 08/12/2017 3:17 PM EST Problem: Patient Care Overview Goal: Plan of Care Review Outcome: Ongoing (Interventions Implemented as Appropriate) 08/12/17 1510 Coping/Psychosocial Plan Of Care Reviewed With patient Plan of Care Review Progress improving Physical Therapy Note Treatment Number: 2 Pertinent History of Current Problem: Pertinent History of Current Problem: Gregory Hoang is a 72 y.o. male with a history of HTN, hyperlipidemia, DM, AF on coumdadin, MARIA VICTORIA (on CPAP), CABG x3 on 07/07/2017, now admitted with CLI and cellulitis of the right forefoot. S/p OR for R D1-3 TMA & foot debridement on 08/09 and to IR on 07/31 for 1. Left femoral arterial access 2. RLE angiogram 3. Selectivecatheterization of R plantar artery 4. Balloon angioplasty of R PT with Eleazar 2.5x80 5. Completion RLE angiogram 6. L [employer] CONTINUITY CONSULTANT angiogram 7. Mynx closure Past Medical History: Active Non-Hospital Problems Diagnosis ??? ASHD (arteriosclerotic heart disease) ??? Cardiomyopathy, ischemic ??? 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 STEMI (ST elevation myocardial infarction) ??? Carpal tunnel syndrome ??? Hx of malignant melanoma ??? Hx of thyroid cancer ??? Leg cramps ??? Osteoarthrosis ??? Ischemic foot ??? Dependence on continuous positive airway pressure ventilation ??? Gastroesophageal reflux disease ??? Hearing impaired ??? Hyperlipidemia ??? Hypomagnesemia ??? Peripheral neuropathy ??? Postoperative retention of urine ??? BPH (benign prostatic hyperplasia) ??? Atypical nevus of abdominal wall ??? Urinary retention ??? MARIA VICTORIA (obstructive sleep apnea) on CPAP ??? Goiter ??? Seborrheic psoriasis- scalp and ingtergluteal area ??? Skin lesion of chest wall ??? Melanoma Precautions/Restrictions: fall, sternal Precautions Comments: No hip flexion>90deg for >20min. Per verbal order from vascular MD: OK to use flat post-op shoe, R heel weightbearing only, otherwise NWB. Limit mobility to transfers and very short distance (bed>bathroom) only. Living Environment Comment: Pt lives with his in a home with 4 steps to enter. He has not been using a walker or cane, but has them at home. He is deconditioned from his baseline now s/p CABG and immobility due to leg pain. He has had a fall in the recent past. Assessment: Pt seen for PT treatment for transfer and gait training. Patient and spouse strongly desiring to discharge directly home. With his spouse observing and practicing, pt was able to perform multiple sit<>stand and bed<>chair transfers with CGA, gait belt and FWW. Pt did better with flat post-op shoe and was able to maintain R heel weight bearing with short, small steps. Pt mildly unsteady, requiring close guarding from his who was able to demonstrate this appropriately. Pt was able to ambulate a short distance and maintain his weight bearing restriction, again requiring close guarding due to mild instability. Discussed discharge planning with pt and his spouse - they will require a wheelchair to enter/exit his home and for household/community ambulation distances. They felt that they can borrow a wheelchair from a friend, and have plans to build a ramp soon. They were educated that they will require 2 strong people to bump pt up stairs to enter home initially. Pt's heel weight bearing status, safety, and activity restrictions were stressed to patient and spouse, and they acknowledged understanding. With patient at the wheelchair/transfer level and with 24/7 from his spouse, he would be safe to discharge home with maximal home services once medically ready. Please see the Rehab Evaluation Summaries section for detailed objective data and specifics of today's session. Mobility Recommendations: Pt to utilize FWW, CGA and gait belt for transfers. Anticipated Physical Therapy Frequency: (Monitor status, but can re-visit if pt has questions) Anticipated Equipment Needs: wheelchair, commode, ramp, gait belt (issued today) Anticipated Discharge Disposition: home with assist, home with home health (home with 24/7 assistance and maximal services) Pager: [phone] NICHOLAS MORA, PT 08/12/2017 Physical Therapy Rehabilitation Department Problem: Acute Rehab Services Goal & Intervention Plan Goal: Bed Mobility Goal Stand Alone Therapy Goal Outcome: Ongoing (Interventions Implemented as Appropriate) 08/11/17 1310 08/12/17 1510 Bed Mobility Goal Bed Mobility Goal, Date Established 08/11/17 -- Bed Mobility Goal, Time to Achieve 5 - 7 days -- Bed Mobility Goal, Activity Type supine to sit/sit to supine -- Bed Mobility Goal, [place] Level independent -- Bed Mobility Goal, Outcome Achieved -- goal ongoing Goal: Gait Training Goal Stand Alone Therapy Goal Outcome: Ongoing (Interventions Implemented as Appropriate) 08/11/17 1310 08/12/17 1510 Gait Training Goal Gait Training Goal, Date Established 08/11/17 -- Gait Training Goal, Time to Achieve 5 - 7 days -- Gait Training Goal, [place] Level conditional independence -- Gait Training Goal, Assist Device walker, rolling -- Gait Training Goal, Distance to Achieve 50 -- Gait Training Goal, Additional Goal pt will go up and down 4 steps with rail independently. -- Gait Training Goal, Outcome -- goal partially met (Not appropriate due to restrictions) Goal: Goal Transfer Training Stand Alone Therapy Goal Outcome: Ongoing (Interventions Implemented as Appropriate) 08/11/17 1310 08/12/17 1510 Goal Transfer Training Transfer Training Goal, Date Established 08/11/17 -- Transfer Training Goal, Time to Achieve 5 - 7 days -- Transfer Training Goal, Activity Type [id number] -- Transfer Train Goal, [place] Level conditional independence -- Transfer Training Goal, Outcome -- goal partially met ( able to provide CGA) Plan of Care - Kitty Moyer RN - 08/11/2017 6:41 PM EST Problem: Patient Care Overview Goal: Plan of Care Review Outcome: Ongoing (Interventions Implemented as Appropriate) 08/09/17 0357 08/11/17 1310 Coping/Psychosocial Plan Of Care Reviewed With -- patient Plan of Care Review Progress no change -- OUTCOME EVALUATION NOTE: OUTCOME SUMMARY: Pt has been A&O with no neuro deficits. Pain in right foot less today, has required PRN dilaudidless frequently. at bedside. Went for wound vac placement and closure of wound at 13:30 and tolerated procedure well, returned to floor sleepy and comfortable. Sugars have been elevated slightly, treated with insulin meal associated dose as well as sliding scale. Began IV abx as ordered. ElevatedBPs with no symptoms. Worked with PT/OT who gave him a boot for right foot to wear while transferring, pt is very unsteady and unable to bear much weight on that foot at this time. Up to chair several times PLAN MOVING FORWARD: Discharge planning, pain control, IV abx INDIVIDUALIZED FALL PREVENTION INTERVENTIONS: Patient-specific fall risk factors per assessment: unfamiliar environment, narcotics, numbness/tingling in feet, not bearing weight on right foot Assistance: 2 assist max with walker and right foot boot Supervision: Hands on Surveillance: Bed locked in low position, call cabello within reach, purposeful hourly rounding, clutter free environment, bed/chair alarm on, family at bedside Patient-specific fall prevention interventions for sensory deficits provided: Yes CPG GOAL OUTCOME EVALUATION: Continue care plan as documented. Goal: Individualization & Mutuality Outcome: Ongoing (Interventions Implemented as Appropriate) 08/08/17 2300 Mutuality/Individual Preferences What Anxieties, Fears or Concerns Do You Have About Your Health or Care? I'm anxious about the surgery. What Questions Do You Have About Your Health or Care? None. What Information Would Help Us Give You More Personalized Care? None. Goal: Fall Prevention-Safe Patient Handling Outcome: Ongoing (Interventions Implemented as Appropriate) 08/09/17 1204 08/11/17 0600 08/11/17 0752 Positioning Body Position -- independent -- Activity Activity Type -- -- -- Activity Assistance Provided -- -- -- Assistive Device Utilized front-wheel walker -- -- Daily Care Interventions Self-Care Promotion independence encouraged;BADL personal objects within reach;BADL personal routines maintained -- -- Restraint Interventions Safety Promotion/Fall Prevention -- -- activity supervised;fall prevention program maintained;musclestrengthening facilitated;nonskid shoes/slippers when out of bed;safety round/check completed Mark Fall Risk History of Falling -- -- 25 Secondary Diagnosis -- -- 15 Ambulatory Aids -- -- 15 Intravenous Therapy/Heparin/Saline Lock -- -- 20 Gait/Transferring -- -- 20 Mental Status -- -- 0 Score -- -- 95 OTHER Mark Fall Risk -- -- High 08/11/17 1300 Positioning Body Position -- Activity Activity Type activity adjusted per tolerance Activity Assistance Provided assistance, 1 person Assistive Device Utilized -- Daily Care Interventions Self-Care Promotion -- Restraint Interventions Safety Promotion/Fall Prevention -- Mark Fall Risk History of Falling -- Secondary Diagnosis -- Ambulatory Aids -- Intravenous Therapy/Heparin/Saline Lock -- Gait/Transferring -- Mental Status -- Score -- OTHER Mark Fall Risk -- Goal: Infection Control Outcome: Ongoing (Interventions Implemented as Appropriate) 08/11/17 0752 Safety Interventions Isolation Precautions standard precautions maintained Infection Prevention single patient room provided;rest/sleep promoted Coping Strategies Supportive Measures active listening utilized;decision-making supported;goal setting facilitated;problem solving facilitated;relaxation techniques promoted;self-care encouraged;verbalization of feelings encouraged Goal: Discharge Needs Assessment Outcome: Ongoing (Interventions Implemented as Appropriate) 08/07/17 1622 08/08/17 2300 Discharge Needs Assessment Concerns To Be Addressed adjustment to diagnosis/illness concerns -- Readmission Within The Last 30 Days current reason for admission unrelated to previous admission -- Equipment Needed After Discharge bath bench;walker, rolling;wheelchair;wound care supplies -- Discharge Disposition still a patient -- Current Health Anticipated Changes Related to Illness inability to care for self -- Activity/Self Care Review of Systems Equipment Currently Used at Home cane, straight -- Living Environment Transportation Available -- car;family or friend will provide Goal: Interdisciplinary Rounds/Family Conf Outcome: Ongoing (Interventions Implemented as Appropriate) 08/07/17 0444 Interdisciplinary Rounds/Family Conf Participants patient;physician;nursing Op Note - Yonathan Smith MD - 08/11/2017 2:52 PM EST [facility] [place] Patient Name: Gregory Hoang : [id number] MR#: [id number] Case Date: 08/11/2017 Surgeon: Surgeon(s) and Role: * Yonathan Smith MD - Primary * Migdalia Mora MD - Fellow Preoperative diagnosis: open toe amp site Postoperative diagnosis: open toe amp site Procedure(s) (LRB): (MSURG) DRESSING CHANGE (FOR OTHER THAN IVAN) UNDER ANES. (WRVU 0.86) (Right) 1. Debridement, skin and subcutaneous tissues of right foot 2. Partial closure of right foot wound 3. Wound vac placement to right foot Findings: Clean wound base. Lateral aspect of foot re-approximated with three interrupted sutures. Wound vac applied (black sponge only, dimensions 4cm x2cm x2cm). Anesthesia: Local only (19mL 1% lidocaine) Estimated Blood Loss: 1mL Specimens removed during surgery: None Drains: wound vac to suction Surgical Closure: Other Than Primary Closure - deep and superficial layers are left completely open during original surgery Disposition: awakened from anesthesia, extubated and taken to the recovery room in a stable condition, having suffered no apparent untoward event. Condition: doing well without problems (Please see the Surgical Encounter Summary for any Implant and Specimen details pertinent to this patient.) HPI/Surgical Indications: 72 y.o.??male??with a history of HTN, hyperlipidemia, DM, AF on coumdadin,MARIA VICTORIA (on CPAP), CABG x3 on 07/07/2017 postop course comlicated by right sided blue toe syndrome (possibly from a right [employer] CONS[employer]ANT PSA which has since thrombosed), now admitted with CLI and cellulitis of the right forefoot. Now 2 Days Post-Op??s/p R D1-3 TMA &??foot debridement. He presents for debridementand wound vac placement. Risks and benefits were discussed in detail and informed consent was obtained and documented. Procedure Description: After informed consent was obtained the patient was brought back to the operating room and positioned supine on the OR table. General anesthesia was induced and the patient was intubated with an ETT. Preoperative antibiotics were given. The right foot was prepped and draped in th e usual sterile fashion. A timeout was performed to correctly identify patient, laterality and intended procedure. The skin and sucutaneous tissues at the mid-portion of the wound were debrided sharply with a knife after instillation of local anesthesia. The wound was copiously irrigated. The lateral aspects of thewound were re-approximated with three interrupted 3-0 prolene sutures. A wound vac was applied. Findings as above. There were no intraoperative complications. All instrument and sponge counts were correct at the endof the case, and Dr. Smith was present for the entire case. The patient was taken to the recovery room in stable condition. Infection Bundle used? N/A Attending Attestation I was the attending physician supervising the resident/fellow in the above care and I was present with the resident/fellow for the entire procedure. I was present during the intraservice time as documented by the sedation RN. Plan of Care - Lawrence Gonzalez, PT - 08/11/2017 1:19 PM EST Problem: Patient Care Overview Goal: Plan of Care Review Outcome: Ongoing (Interventions Implemented as Appropriate) 08/11/17 1310 Coping/Psychosocial Plan Of Care Reviewed With patient Physical Therapy Note Treatment Number: 1 Pertinent History of Current Problem: Gregory Hoang is a 72 y.o. male with a history of HTN, hyperlipidemia, DM, AF on coumdadin, MARIA VICTORIA (on CPAP), CABG x3 on 07/07/2017, now admitted with CLI and cellulitis of the right forefoot. S/p OR for R D1-3 TMA &??foot debridement on 08/09 and to IR on 07/31 for 1. Left femoral arterial access 2. RLE angiogram 3. Selective catheterization of R plantar artery 4. Balloon angioplasty of R PT with Eleazar 2.5x80 5. Completion RLE angiogram 6. L BUSINESS [employer]INUITY CONSULTANT angiogram 7. Mynx closure He is very weak and deconditioned after CABG and now prolonged immobility due to leg pain. Referred to PT for evaluation. Past Medical History: Patient Active Problem List Diagnosis Code ??? [...] ??? Postoperative retention of urine N99.89, R33.8 Precautions/Restrictions: sternal, fall (no hip flexion to 90 degrees for more than 20 mins at a time) Living Environment Comment: Pt lives with his in a home with 4 steps to enter. He has not been using a walker or cane, but has them at home. He is deconditioned from his baseline now s/p CABG and immobility due to leg pain. He has had a fall in the recent past. Assessment: Pt seen for evaluation and mobility. Pt requires mod assist to stand and is currently unable to safely take steps with a walker. He is very limited by generalized and LE weakness, LE peripheral neuropathy and pain affecting his balance and ability to take steps safely. He was given an off loading shoe for right foot that seemed to also throw off his balance. He is notsafe to walk at this time and is at high risk to fall. Highly recommend rehab placement prior to safe d/c to home with his . He would like to go home if at all possible. Please see the Rehab Evaluation Summaries section for detailed objective data and specifics of today's session. Mobility Recommendations: assist of 2 with walker to pivot to cc. Anticipated Physical Therapy Frequency: 3-5 times/wk Anticipated Discharge Disposition: inpatient rehabilitation facility Pager: [phone] LAWRENCE GONZALEZ, PT 08/11/2017 Physical Therapy Rehabilitation Department 2017 PT Evaluation Code Rationale: ?? Diagnosis & Pertinent Co-Morbidities affecting Plan of Care: Patient Active Problem List Diagnosis Code ??? [...] ??? Postoperative retention of urine N99.89, R33.8 ?? Clinical presentation: fluctuation pain, LE balance and strength. Stable Evolving Unstable x ?? Examination of Body Systems: as above Addressing 1-2 elements Addressing 3 + elements Addressing 4 + elements x Clinical decision: high complexity based on information outlined in this evaluation. Problem: Acute Rehab Services Goal & Intervention Plan Goal: Bed Mobility Goal Stand Alone Therapy Goal Outcome: Ongoing (Interventions Implemented as Appropriate) 08/11/17 1310 Bed Mobility Goal Bed Mobility Goal, Date Established 08/11/17 Bed Mobility Goal, Time to Achieve 5 - 7 days Bed Mobility Goal, Activity Type supine to sit/sit to supine Bed Mobility Goal, [place] Level independent Goal: Gait Training Goal Stand Alone Therapy Goal Outcome: Ongoing (Interventions Implemented as Appropriate) 08/11/17 1310 Gait Training Goal Gait Training Goal, Date Established 08/11/17 Gait Training Goal, Time to Achieve 5 - 7 days Gait Training Goal, [place] Level conditional independence Gait Training Goal, Assist Device walker, rolling Gait Training Goal, Distance to Achieve 50 Gait Training Goal, Additional Goal pt will go up and down 4 steps with rail independently. Goal: Goal Transfer Training Stand Alone Therapy Goal Outcome: Ongoing (Interventions Implemented as Appropriate) 08/11/17 1310 Goal Transfer Training Transfer Training Goal, Date Established 08/11/17 Transfer Training Goal, Time to Achieve 5 - 7 days Transfer Training Goal, Activity Type [id number]-jem Transfer Train Goal, [place] Level conditional independence Plan of [facility] Annetta Sandoval RN - 08/11/2017 7:21 AM EST Problem: Patient Care Overview Goal: Plan of Care Review Outcome: Ongoing (Interventions Implemented as Appropriate) OUTCOME EVALUATION NOTE: OUTCOME SUMMARY: Alert and oriented, calm and cooperative PRN Dilaudid and scheduled Tylenol given for RLE pain with mild effect. Dressing CDI, no drainage noted. Left groin dressing, CDI. 0345 Reports pressure from the incision site, pain medication given with no effect. MD Borja notified, he came to see the pt. Hydromorphone 0.3 mg IV once given for break through pain as ordered. Pt verbalizes relief after IV Dilaudid. Kept on bedrest as ordered. Slept fairly over night. 0655 RLE dressing changed per MD. PLAN MOVING FORWARD: Continue treatment plan Pain management INDIVIDUALIZED FALL PREVENTION INTERVENTIONS: Patient-specific fall risk factors per assessment: RLE incision Assistance: Bedrest Supervision: Hands on Surveillance: Bed locked in low position, bed alarm on, purposeful rounding, call cabello within reach Patient-specific fall prevention interventions for sensory deficits provided, if applicable: [X] Yes CPG GOAL OUTCOME EVALUATION: Goal: Fall Prevention-Safe Patient Handling Outcome: Ongoing (Interventions Implemented as Appropriate) 08/11/17 0658 Restraint Interventions Safety Promotion/Fall Prevention activity supervised;fall prevention program maintained Goal: Infection Control Outcome: Ongoing (Interventions Implemented as Appropriate) 08/11/17 0658 Safety Interventions Isolation Precautions standard precautions maintained Infection Prevention environmental surveillance performed;rest/sleep promoted Problem: Skin Integrity Impairment, Risk/Actual (Adult) Goal: Skin Integrity/Wound Healing Patient will demonstrate the desired outcomes by discharge/transition of care. Outcome: Ongoing (Interventions Implemented as Appropriate) 08/11/17 0658 Skin Integrity Impairment, Risk/Actual (Adult) Skin Integrity/Wound Healing making progress toward outcome Problem: Pain, Acute (Adult) Goal: Acceptable Pain Control/Comfort Level Patient will demonstrate the desired outcomes by discharge/transition of care. Outcome: Ongoing (Interventions Implemented as Appropriate) 08/11/17 0658 Pain, Acute (Adult) Acceptable Pain Control/Comfort Level making progress toward outcome Plan of Care - Kitty Moyer RN - 08/10/2017 4:46 PM EST Problem: Patient Care Overview Goal: Plan of Care Review Outcome: Ongoing (Interventions Implemented as Appropriate) 08/09/17 0357 08/10/17 1144 Coping/Psychosocial Plan Of Care Reviewed With -- patient;spouse Plan of Care Review Progress no change -- OUTCOME EVALUATION NOTE: OUTCOME SUMMARY: Pt spent the morning in IR getting an angiogram to RLE, arrived back to floor about 11:00. Orders tolie flat for 4 hours, hold heparin drip for now, and recheck H&H after 4 hours. Pt has been in pain with lowest score being 7/10, keeping up with pain using 4mg dilaudid PO Q3hrs with good effect, though patient gets anxious about staying on top of pain because right foot begins to throb more whenleft untreated. at bedside most of the day had concerns about discharge and mobility once back at home. Keeping RLE elevated on pillows, wrapped in KIRSTIN bandage and gauze. Sugars being treated withinsulin as needed, highest above 240, treating right now with 11 units with meals and a sliding scale on top of that. IV abx begun. PLAN MOVING FORWARD: Discharge planning, pain control INDIVIDUALIZED FALL PREVENTION INTERVENTIONS: Patient-specific fall risk factors per assessment: pain, unclear orders for weightbearing on RLE, narcotics Assistance: 2 assist Supervision: Independent, Eyes on, Arms reach, Hands on Surveillance: Bed locked in low position, call cabello within reach, purposeful hourly rounding, clutter free environment, bed/chair alarm on, family at bedside Patient-specific fall prevention interventions for sensory deficits provided: Yes CPG GOAL OUTCOME EVALUATION: Continue care plan as documented. Goal: Individualization & Mutuality Outcome: Ongoing (Interventions Implemented as Appropriate) 08/08/17 2300 Mutuality/Individual Preferences What Anxieties, Fears or Concerns Do You Have About Your Health or Care? I'm anxious about the surgery. What Questions Do You Have About Your Health or Care? None. What Information Would Help Us Give You More Personalized Care? None. Goal: Fall Prevention-Safe Patient Handling Outcome: Ongoing (Interventions Implemented as Appropriate) 08/09/17 1204 08/10/17 1144 Positioning Body Position independent -- Activity Activity Type activity adjusted per tolerance -- Activity Assistance Provided assistance, 2 people -- Assistive Device Utilized front-wheel walker -- Daily Care Interventions Self-Care Promotion independence encouraged;BADL personal objects within reach;BADL personal routines maintained -- Mark Fall Risk History of Falling -- 25 Secondary Diagnosis -- 15 Ambulatory Aids -- 15 Intravenous Therapy/Heparin/Saline Lock -- 20 Gait/Transferring -- 10 Mental Status -- 0 Score -- 85 OTHER Mark Fall Risk -- High Restraint Interventions Safety Promotion/Fall Prevention -- activity supervised;fall prevention program maintained;muscle strengthening facilitated;nonskid shoes/slippers when out of bed;safety round/check completed Goal: Infection Control Outcome: Ongoing (Interventions Implemented as Appropriate) 08/10/17 1144 Safety Interventions Isolation Precautions standard precautions maintained Infection Prevention single patient room provided;rest/sleep promoted Coping Strategies Supportive Measures active listening utilized;goal setting facilitated;problem solving facilitated;relaxation techniques promoted;self-care encouraged;self- responsibility promoted Goal: Discharge Needs Assessment Outcome: Ongoing (Interventions Implemented as Appropriate) 08/07/17 1622 08/08/17 2300 Discharge Needs Assessment Concerns To Be Addressed adjustment to diagnosis/illness concerns -- Readmission Within The Last 30 Days current reason for admission unrelated to previous admission -- Equipment Needed After Discharge bath bench;walker, rolling;wheelchair;wound care supplies -- Discharge Disposition still a patient -- Current Health Anticipated Changes Related to Illness inability to care for self -- Activity/Self Care Review of Systems Equipment Currently Used at Home cane, straight -- Living Environment Transportation Available -- car;family or friend will provide Goal: Interdisciplinary Rounds/Family Conf Outcome: Ongoing (Interventions Implemented as Appropriate) 08/07/17 0444 Interdisciplinary Rounds/Family Conf Participants patient;physician;nursing Plan of Care - Mira Truong RN - 08/09/2017 7:53 PM EST Problem: Patient Care Overview Goal: Plan of Care Review Outcome: Ongoing (Interventions Implemented as Appropriate) 08/09/17 0357 08/09/17 1204 Coping/Psychosocial Plan Of Care Reviewed With -- patient;spouse Plan of Care Review Progress no change -- OUTCOME EVALUATION NOTE: OUTCOME SUMMARY: Vital signs for past 24 H Temp: [36.2 ??C (97.2 ??F)-36.8 ??C (98.2 ??F)] Heart Rate: [65-85] Resp: [12-23] BP: (108-153)/(55-81) SpO2: [77 %-100 %] Heart Rate from SPO2: [65 bpm-80 bpm] A&O x4, strengths 5/5 for all. VSS Care team paged to address soaked dressing and copious drainage. Patient easily awakened but sleeping peacefully. PLAN MOVING FORWARD: Continue to monitor patient progress with treatment. Monitor and manage pain IV Abx ? INDIVIDUALIZED FALL PREVENTION INTERVENTIONS : Pt at RISK OF FALLS. ? Patient-specific fall risk factors per assessment: [current deficits]: Pain, advanced age, medications ? Assistance [level of assistance required for transfers and ambulation]: 1 assist ? Supervision [direct monitoring required during toileting and ADLs]: Monitoring during toileting and ADLs arms reach ? Surveillance [continuous indirect monitoring]: Bed locked in low position, call cabello within reach, Hourly rounding by RN/GEOLOGICAL SAMPLE TESTER. Bed alarm / Chair alarm. ? Patient-specific fall prevention interventions for sensory deficits provided, if applicable: [X] Yes CPG GOAL OUTCOME EVALUATION: Initial Assessments - Kaitlin Saha RN - 08/09/2017 11:43 AM EST Office of Care Management Initial Assessment Kaitlin Saha RN reviewed record and discussed patient with Care Team. Source of Information: [facility] review, rounds, Patient interview Introduced self/reviewed role; services accepted. Reason for Hospitalization: Reason for Admission as Stated by Patient: AmputationCritical lower LimbIschemia Past Medical History: Diagnosis Date ??? BPH (benign prostatic hyperplasia) 11/28/2013 ??? CAD (coronary artery disease) ??? Melanoma 2006 mid back ??? Peripheral vascular disease ??? Urinary retention 04/05/2013 Hospitalizations Within the Past 30 Days: [facility] [place] Anticipated Length Of Stay (If known): Expected Length of Hospitalization: 5-7 days2-3 days Current Decision-Making Capacity: Alert and oriented x 4 Advance Care Planning: on file Kisha Hoang [facility] [phone] Current Coping/Education/Information Needs: pt and spouse state understanding of current treatment plan and are comfortable with the teams communication. Current Functional Ability: one assist with FWW Functional Status Prior to Admission: Patient was independent prior to admission with walker and cane. Home Environment: lives in a two story home with steps into the home and flight of with in the home. Social & Family Supports/Community Resources: Lives with his she will assist as needed. Behavioral Health History: None Substance Use/Abuse: Former smoker quit in 1967 denies tobacco or alcohol use. Other Pertinent/Service Specific Information: None Health/Prescription Coverage: Primary Insurance: MEDICARE Secondary Insurance: [email or web address] [facility] Prescription Coverage: See above Preferred Pharmacy: [facility] Other: N/A Primary Care Provider: Lovely Vicente MD [phone] Patient/Caregiver Goals of Treatment: Patient plans to return home when medically ready Potential Needs for Transition of Care: Rehab/SNF: N/A Home Health: [facility]. DME: pt has a cane and walker at home. Dialysis: N/A Community Resources: N/A Transportation: Patient family will transport if deemed safe. Other: N/A Anticipated Barriers to Discharge/Special Considerations: None Plan: Patient plans to return home with home health services when medically ready A member of the Care Management team will continue to monitor progress, follow for continuity of care and assist with transition of care planning. Kaitlin Saha RN Pager: [phone] Plan of Care - Melba Jaramillo RN - 08/09/2017 4:08 AM EST Problem: Patient Care Overview Goal: Plan of Care Review OUTCOME EVALUATION NOTE: OUTCOME SUMMARY: Pt remains anxious and restless. Encouraged to sit in chair with alarm, but frequently requesting tostand and walk around room/unit. Pt was stable on his feet, but as the night progressed and be became tired, the pt appeared to be more unsteady, so sitter was asked to stay in room with the pt to stand by to keep him from getting up and falling. Pt given PRN pain meds, Melatonin and Ativan, but stilldid not get adequate sleep d/t discomfort in RLE. Pt BS well controlled. PTT within normal range for2 consecutive blood draws, so dose remained consistent. Type and screen performed for procedure in the AM. Pt safety maintained. PLAN MOVING FORWARD: Pt to angio in AM. Pain control. INDIVIDUALIZED FALL PREVENTION INTERVENTIONS: Patient-specific fall risk factors per assessment: Sleep deprivation, numb/tingling in RLE, pain, hospital equipment. Assistance: 1 assist, FWW Supervision: Arms reach, Hands on Surveillance: Bed locked in low position, call cabello within reach, purposeful hourly rounding, clutter free environment, bed/chair alarm on Patient-specific fall prevention interventions for sensory deficits provided: Yes CPG GOAL OUTCOME EVALUATION: Continue care plan as documented. Plan of Care - Chiquis Mcgrath RN - 08/08/2017 7:03 PM EST Problem: Patient Care Overview Goal: Plan of Care Review Outcome: Ongoing (Interventions Implemented as Appropriate) 08/08/17 0832 08/08/17 1855 Coping/Psychosocial Plan Of Care Reviewed With patient;family;significant other -- Plan of Care Review Progress -- improving OUTCOME EVALUATION NOTE: OUTCOME SUMMARY: RLE dressing changed at 1000 per MD request. POC glucose levels unstable ranging from 58-216, treated per insulin protocol, see note. Heparin drip adjusted x1, 1800 PTT therapeutic. Next PTT due at 0000 08/09/17. PLAN MOVING FORWARD: Procedure tomorrow am. Discharge planning. INDIVIDUALIZED FALL PREVENTION INTERVENTIONS: Patient-specific fall risk factors per assessment: Medical equipment, history of fall. Assistance: SBA, FWW Supervision: Arms reach Surveillance: Bed locked in low position, call cabello within reach, purposeful hourly rounding, clutter free environment, bed/chair alarm on, family at bedside Patient-specific fall prevention interventions for sensory deficits provided: N/A CPG GOAL OUTCOME EVALUATION: Continue care plan as documented. Plan of Care - Melba Jaramillo RN - 08/08/2017 5:06 AM EST Problem: Patient Care Overview Goal: Plan of Care Review 08/08/17 3504 Coping/Psychosocial Plan Of Care Reviewed With patient Plan of Care Review Progress no change OUTCOME EVALUATION NOTE: OUTCOME SUMMARY: Pt fully alert and oriented. Denies numbness or tingling in RLE. Pain managed with PRN Dilaudid. Pt given PRN Ativan for sleep deprivation, but still did not get adequate sleep d/t discomfort and restlessness. Pt encouraged to sit in recliner for safety purposes. During the night the pt fell from standing, but did not recall getting up from the chair (see fall note). Pt uninjured during the fall. Chair alarm placed for safety, and pt encouraged to rest in chair. PTT within normal range upon lab draw, Heparin infusion maintained. Pt safety maintained. PLAN MOVING FORWARD: Will continue to monitor PTT. Maintain fall precautions. Monitor RLE. Manage pain. INDIVIDUALIZED FALL PREVENTION INTERVENTIONS: Patient-specific fall risk factors per assessment: Sleep deprivation, RLE pain, hospital environment/equipment. Assistance: 1-2 assist, FWW Supervision: Hands on Surveillance: Bed locked in low position, call cabello within reach, purposeful hourly rounding, clutter free environment, chair alarm on Patient-specific fall prevention interventions for sensory deficits provided: N/A CPG GOAL OUTCOME EVALUATION: Continue care plan as documented. Plan of Care - Barbara Albert RN - 08/07/2017 4:52 PM EST Problem: Patient Care Overview Goal: Plan of Care Review 08/07/17 1622 Coping/Psychosocial Plan Of Care Reviewed With patient;spouse Plan of Care Review Progress no change OUTCOME EVALUATION NOTE: OUTCOME SUMMARY: A&Ox 3. Pain management improving, see flow sheet. Severe LE edema R>L has led to blistering and oozing of skin of right toes and posterior ankle. The toes are dressed to prevent maceration and there is gauze and an Kirstin wrap from the foot to below the knee. Ambulates with steady gait, FWW and SBA. Heparin infusing into RUE PIV at 1450 units/h, site benign. PLAN MOVING FORWARD: Promote comfort and rest. Provide skin care. INDIVIDUALIZED FALL PREVENTION INTERVENTIONS: Patient-specific fall risk factors per assessment: [current deficits]: Unable to wear non-skid sock on right foot. Attachment to medical devices. Labile blood sugar. Assistance [level of assistance required for transfers and ambulation]: CG Supervision [direct monitoring required during toileting and ADLs]: Hands-on Surveillance [continuous indirect monitoring]: Hourly rounding; frequent visualization Patient-specific fall prevention interventions for sensory deficits provided, if applicable: [X] N/A CPG GOAL OUTCOME EVALUATION: Goal: Individualization & Mutuality 08/07/171621 Mutuality/Individual Preferences What Anxieties, Fears or Concerns Do You Have About Your Health or Care? I'm worried about my foot. Goal: Fall Prevention-Safe Patient Handling 08/07/17 0444 08/07/17 1100 08/07/17 121 Positioning Body Position -- -- up in chair Activity Activity Type -- ambulated in matos -- Activity Assistance Provided -- assistance, stand-by (pt now attached to IV pump) -- Assistive Device Utilized -- front-wheel walker -- Daily Care Interventions Self-Care Promotion independence encouraged;BADL personal objects within reach;BADL personal routines maintained -- -- Mark Fall Risk History of Falling -- -- 25 Secondary Diagnosis -- -- 15 Ambulatory Aids -- -- 15 Intravenous Therapy/Heparin/Saline Lock -- -- 20 Gait/Transferring -- -- 0 Mental Status -- -- 0 Score -- -- 75 OTHER Mark Fall Risk -- -- High Restraint Interventions Safety Promotion/Fall Prevention -- -- nonskid shoes/slippers when out of bed;safety round/check completed Goal: Infection Control 08/07/17 1218 Safety Interventions Isolation Precautions standard precautions maintained Infection Prevention environmental surveillance performed;rest/sleep promoted;single patient room provided Coping Strategies Supportive Measures active listening utilized;positive reinforcement provided;verbalization of feelings encouraged Goal: Discharge Needs Assessment 08/07/171621 Discharge Needs Assessment Concerns To Be Addressed adjustment to diagnosis/illness concerns Readmission Within The Last 30 Days current reason for admission unrelated to previous admission Equipment Needed After Discharge bath bench;walker, rolling;wheelchair;wound care supplies Discharge Disposition still a patient Current Health Anticipated Changes Related to Illness inability to care for self Activity/Self Care Review of Systems Equipment Currently Used at Home cane, straight Living Environment Transportation Available family or friend will provide Problem: Tissue Perfusion, Ineffective Peripheral (Adult) Intervention: Optimize Tissue Perfusion 08/07/17 1100 08/07/17 162 Activity Activity Type -- ambulated in matos;step/march in place;up in chair Optimize Tissue Perfusion General -- greater than 3 secs Hygiene Care Bathing/Skin Care foot care -- Intervention: Monitor/Assist with Self Care 08/07/17 0444 08/07/17 1100 08/07/17 1218 Functional Level Current Ambulation -- -- 1-->assistive equipment Transferring -- -- 1-->assistive equipment Toileting -- -- 1-->assistive equipment Bathing -- -- 0-->independent Dressing -- -- 0-->independent Eating -- -- 0-->independent Communication -- -- 0-->understands/communicates without difficulty Swallowing -- -- 0-->swallows foods/liquids without difficulty Activity Activity Type -- -- -- Activity Assistance Provided -- assistance, stand-by (pt now attached to IV pump) -- Daily Care Interventions Self-Care Promotion independence encouraged;BADL personal objects within reach;BADL personal routines maintained -- -- 08/07/17 162 Functional Level Current Ambulation -- Transferring -- Toileting -- Bathing -- Dressing -- Eating -- Communication -- Swallowing -- Activity Activity Type ambulated in matos;step/march in place;up in chair Activity Assistance Provided -- Daily Care Interventions Self-Care Promotion -- Intervention: Promote/Optimize Nutrition 08/07/171621 Hygiene Care Oral Care oral care provided Intervention: Minimize Pressure Points 08/07/171621 Positioning Head of Bed (HOB) other (see comments) Pt stays OOB due to pain with LE elevation. Goal: Identify Related Risk Factors and Signs and Symptoms Related risk factors and signs and symptoms are identified upon initiation of Human Response Clinical Practice Guideline (CPG) 08/07/171621 Tissue Perfusion, Ineffective Peripheral Tissue Perfusion, Ineffective Peripheral: Related Risk Factors arterial flow reduced;diabetes mellitus Signs and Symptoms (Ineffective Peripheral Tissue Perfusion) aching pain;capillary refill: greater than 3 seconds (adult);edema;pain at rest;peripheral pulses absent/decreased;shiny/taut skin;skin color changes Goal: Adequate Tissue Perfusion Patient will demonstrate the desired outcomes by discharge/transition of care. 08/07/17 1622 Tissue Perfusion, Ineffective Peripheral (Adult) Adequate Tissue Perfusion other (see comments) Pt awaiting an angiography and attempted balloon stenting of right lower leg on Wednesday or Wednesday of. Plan of Care - Mira Truong RN - 08/07/2017 5:40 AM EST Problem: Patient Care Overview Goal: Plan of Care Review Outcome: Ongoing (Interventions Implemented as Appropriate) 08/07/17443 Coping/Psychosocial Plan Of Care Reviewed With patient Plan of Care Review Progress progress toward functional goals is gradual OUTCOME EVALUATION NOTE: OUTCOME SUMMARY: Vital signs for past 24 H Temp: [36.4 ??C (97.5 ??F)] Heart Rate: [62-77] Resp: [18] BP: (106-132)/(53-69) SpO2: [96 %-98 %] Heart Rate from SPO2: -- A&O x4, strengths 5/5 for all Patient unable to rest. States he must stand to relieve pain. Painmedications providing little relief. Patient unable to sleep due to pain. PLAN MOVING FORWARD: Continue to monitor patient progress with treatment. Monitor and manage pain IV Abx INDIVIDUALIZED FALL PREVENTION INTERVENTIONS : Pt at RISK OF FALLS. Patient-specific fall risk factors per assessment: [current deficits]: Pain, advanced age, medications Assistance [level of assistance required for transfers and ambulation]: 1 assist Supervision [direct monitoring required during toileting and ADLs]: Monitoring during toileting and ADLs arms reach Surveillance [continuous indirect monitoring]: Bed locked in low position, call cabello within reach, Hourly rounding by RN/GEOLOGICAL SAMPLE TESTER. Bed alarm / Chair alarm. Patient-specific fall prevention interventions for sensory deficits provided, if applicable: [X] Yes CPG GOAL OUTCOME EVALUATION: Goal: Fall Prevention-Safe Patient Handling Outcome: Ongoing (Interventions Implemented as Appropriate) 08/06/17 1700 08/06/17199908/07/174 Positioning Body Position -- up in chair -- Activity Activity Type -- activity adjusted per tolerance;up in chair -- Activity Assistance Provided -- assistance, 1 person -- Assistive Device Utilized -- -- front-wheel walker Daily Care Interventions Self-Care Promotion -- -- independence encouraged;BADL personal objects within reach;BADL personal routines maintained Mark Fall Risk History of Falling 25 -- -- Secondary Diagnosis 15 -- -- Ambulatory Aids 15 -- -- Intravenous Therapy/Heparin/Saline Lock 20 -- -- Gait/Transferring 0 -- -- Mental Status 0 -- -- Score 75 -- -- OTHER Mark Fall Risk High -- -- Restraint Interventions Safety Promotion/Fall Prevention -- activity supervised;fall prevention program maintained;nonskid shoes/slippers when out of bed;safety round/check completed -- Goal: Infection Control Outcome: Ongoing (Interventions Implemented as Appropriate) 08/06/17 1700 08/06/17199908/06/172014 Safety Interventions Isolation Precautions standard precautions maintained -- -- Infection Prevention -- environmental surveillance performed;rest/sleep promoted -- Coping Strategies Supportive Measures -- -- active listening utilized;decision-making supported;positive reinforcementprovided;relaxation techniques promoted;self- care encouraged;verbalization of feelings encouraged Goal: Discharge Needs Assessment Outcome: Ongoing (Interventions Implemented as Appropriate) 08/07/17443 Discharge Needs Assessment Discharge Disposition still a patient Goal: Interdisciplinary Rounds/Family Conf Outcome: Ongoing (Interventions Implemented as Appropriate) 08/07/17443 Interdisciplinary Rounds/Family Conf Participants patient;physician;nursing Consult Note - Taylor Laureano RN - 08/06/2017 5:43 PM EST Images from the original note were not included. Phlebitis Location of Phlebitis: Phlebitis Scale: [ ] Palpable venous cord > 1 inch in length Site measurement: Length [ 19 CM ] cm X Width [ < 0.5] cm Circumference of affected extremity [ ] cm [X ] N/A Circumference of unaffected extremity [ ] cm [ X] N/A Treatment initiated or recommended [X ] Heat [ ] Rest [ ] Elevation [ ] Other Reassessment: [ ] Q4 hrs [ ] Q8 hrs [ X ] Daily Comments: VAMSI GONZALEZ present at bedside and MD TEAM Carrying pager [phone] contacted (via Radio page) and notified of area of phlebitic concern. Offered patient warm compress. Pt denies discomfort, or knowing the vein was palpable. Advised to patient to try to avoid having labs drawn and iv's placed within the marked area. See Photo below. documented in this encounter Plan of Treatment Upcoming Encounters Date Type Specialty Care Team Description 02/19/2022 Laboratory Appointment Lab 02/19/2022 Office Visit Cardiology Liz Poole PA [facility] er Cardiology Dept [place], [place] [address] (Wo rk) 03/12/2022 Office Visit Cardiology Vitaliy Nobles MD [facility] ER CARDIOLOGY [place], [place] [address] (Wo rk) documented as of this encounter Procedures Procedure Name Priority Date/Time Associated Comments Diagnosis POCT GLUCOSE Routine 08/16/2017 7:28 Results for this AM EST procedure are i n the results section. HEMOGRAM Routine 08/16/2017 5:08 Results for this AM EST procedure are i n the results section. DIFFERENTIAL, AUTOMATED Routine 08/16/2017 5:08 R esults for this AM EST procedure are i n the results section. PROTHROMBIN TIME Routine 08/16/2017 5:08 Results for this AM EST procedure are i n the results section. CBC (WITH DIFF) Routine 08/16/2017 5:08 AM EST BASIC METABOLIC PANEL Routine 08/16/2017 5:08 Res ults for this (NON-FASTING) AM EST procedure are in the results section. POCT GLUCOSE Routine 08/16/2017 4:09 Results for this AM EST procedure are i n the results section. POCT GLUCOSE Routine 08/15/2017 11:56 Results for this PM EST procedure are i n the results section. POCT GLUCOSE Routine 08/15/2017 8:05 Results for this PM EST procedure are i n the results section. POCT GLUCOSE Routine 08/15/2017 4:50 Results for this PM EST procedure are i n the results section. POCT GLUCOSE Routine 08/15/2017 12:04 Results for this PM EST procedure are i n the results section. POCT GLUCOSE Routine 08/15/2017 7:36 Results for this AM EST procedure are i n the results section. HEMOGRAM Routine 08/15/2017 6:22 Results for this AM EST procedure are i n the results section. DIFFERENTIAL, AUTOMATED Routine 08/15/2017 6:22 R esults for this AM EST procedure are i n the results section. PROTHROMBIN TIME Routine 08/15/2017 6:22 Results for this AM EST procedure are i n the results section. CBC (WITH DIFF) Routine 08/15/2017 6:22 AM EST BASIC METABOLIC PANEL Routine 08/15/2017 6:22 Res ults for this (NON-FASTING) AM EST procedure are in the results section. POCT GLUCOSE Routine 08/15/2017 4:33 Results for this AM EST procedure are i n the results section. POCT GLUCOSE Routine 08/15/2017 12:12 Results for this AM EST procedure are i n the results section. POCT GLUCOSE Routine 08/14/2017 8:07 Results for this PM EST procedure are i n the results section. POCT GLUCOSE Routine 08/14/2017 5:11 Results for this PM EST procedure are i n the results section. POCT GLUCOSE Routine 08/14/2017 12:10 Results for this PM EST procedure are i n the results section. POCT GLUCOSE Routine 08/14/2017 8:07 Results for this AM EST procedure are i n the results section. HEMOGRAM Routine 08/14/2017 4:52 Results for this AM EST procedure are i n the results section. DIFFERENTIAL, AUTOMATED Routine 08/14/2017 4:52 R esults for this AM EST procedure are i n the results section. PROTHROMBIN TIME Routine 08/14/2017 4:52 Results for this AM EST procedure are i n the results section. CBC (WITH DIFF) Routine 08/14/2017 4:52 AM EST BASIC METABOLIC PANEL Routine 08/14/2017 4:52 Res ults for this (NON-FASTING) AM EST procedure are in the results section. POCT GLUCOSE Routine 08/14/2017 3:56 Results for this AM EST procedure are i n the results section. POCT GLUCOSE Routine 08/13/2017 11:13 Results for this PM EST procedure are i n the results section. POCT GLUCOSE Routine 08/13/2017 8:08 Results for this PM EST procedure are i n the results section. POCT GLUCOSE Routine 08/13/2017 4:02 Results for this PM EST procedure are i n the results section. POCT GLUCOSE Routine 08/13/2017 11:31 Results for this AM EST procedure are i n the results section. POCT GLUCOSE Routine 08/13/2017 10:16 Results for this AM EST procedure are i n the results section. JULIAN, LEGS, MULTIPLE Routine 08/13/2017 7:42 Critical lower Res ults for this LEVELS AM EST limb ischemia procedure are in the results section. POCT GLUCOSE Routine 08/13/2017 7:33 Results for this AM EST procedure are i n the results section. HEMOGRAM Routine 08/13/2017 5:33 Results for this AM EST procedure are i n the results section. DIFFERENTIAL, AUTOMATED Routine 08/13/2017 5:33 R esults for this AM EST procedure are i n the results section. PROTHROMBIN TIME Routine 08/13/2017 5:33 Results for this AM EST procedure are i n the results section. CBC (WITH DIFF) Routine 08/13/2017 5:33 AM EST BASIC METABOLIC PANEL Routine 08/13/2017 5:33 Res ults for this (NON-FASTING) AM EST procedure are in the results section. POCT GLUCOSE Routine 08/13/2017 4:29 Results for this AM EST procedure are i n the results section. POCT GLUCOSE Routine 08/12/2017 11:28 Results for this PM EST procedure are i n the results section. POCT GLUCOSE Routine 08/12/2017 7:40 Results for this PM EST procedure are i n the results section. POCT GLUCOSE Routine 08/12/2017 4:24 Results for this PM EST procedure are i n the results section. POCT GLUCOSE Routine 08/12/2017 12:00 Results for this PM EST procedure are i n the results section. POCT GLUCOSE Routine 08/12/2017 7:25 Results for this AM EST procedure are i n the results section. HEMOGRAM Routine 08/12/2017 6:29 Results for this AM EST procedure are i n the results section. DIFFERENTIAL, AUTOMATED Routine 08/12/2017 6:29 R esults for this AM EST procedure are i n the results section. PROTHROMBIN TIME Routine 08/12/2017 6:29 Results for this AM EST procedure are i n the results section. CBC (WITH DIFF) Routine 08/12/2017 6:29 AM EST BASIC METABOLIC PANEL Routine 08/12/2017 6:29 Res ults for this (NON-FASTING) AM EST procedure are in the results section. POCT GLUCOSE Routine 08/12/2017 4:08 Results for this AM EST procedure are i n the results section. POCT GLUCOSE Routine 08/12/2017 12:17 Results for this AM EST procedure are i n the results section. POCT GLUCOSE Routine 08/11/2017 8:52 Results for this PM EST procedure are i n the results section. POCT GLUCOSE Routine 08/11/2017 5:59 Results for this PM EST procedure are i n the results section. POCT GLUCOSE Routine 08/11/2017 4:08 Results for this PM EST procedure are i n the results section. (MSURG) DRESSING CHANGE 08/11/2017 2:01 open toe amp s ite (FOR OTHER THAN IVAN) PM EST UNDER ANES. (WRVU 0.86) (MSURG) DRESSING CHANGE Routine 08/11/2017 2:01 (FOR OTHER THAN IVAN) PM EST UNDER ANES. POCT GLUCOSE Routine 08/11/2017 12:04 Results for this PM EST procedure are i n the results section. POCT GLUCOSE Routine 08/11/2017 7:31 Results for this AM EST procedure are i n the results section. HEMOGRAM Routine 08/11/2017 6:16 Results for this AM EST procedure are i n the results section. DIFFERENTIAL, AUTOMATED Routine 08/11/2017 6:16 R esults for this AM EST procedure are i n the results section. PROTHROMBIN TIME Routine 08/11/2017 6:16 Results for this AM EST procedure are i n the results section. CBC (WITH DIFF) Routine 08/11/2017 6:16 AM EST BASIC METABOLIC PANEL Routine 08/11/2017 6:16 Res ults for this (NON-FASTING) AM EST procedure are in the results section. POCT GLUCOSE Routine 08/11/2017 4:07 Results for this AM EST procedure are i n the results section. POCT GLUCOSE Routine 08/10/2017 11:59 Results for this PM EST procedure are i n the results section. POCT GLUCOSE Routine 08/10/2017 8:12 Results for this PM EST procedure are i n the results section. POCT GLUCOSE Routine 08/10/2017 4:42 Results for this PM EST procedure are i n the results section. HEMOGRAM Timed 08/10/2017 2:30 Results for this PM EST procedure are i n the results section. DIFFERENTIAL, AUTOMATED Timed 08/10/2017 2:30 R esults for this PM EST procedure are i n the results section. CBC (WITH DIFF) Timed 08/10/2017 2:30 PM EST POCT GLUCOSE Routine 08/10/2017 1:50 Results for this PM EST procedure are i n the results section. POCT GLUCOSE Routine 08/10/2017 11:21 Results for this AM EST procedure are i n the results section. HEMOGRAM STAT 08/10/2017 10:28 Results for this AM EST procedure are i n the results section. DIFFERENTIAL, AUTOMATED STAT 08/10/2017 10:28 Results for this AM EST procedure are i n the results section. CBC (WITH DIFF) STAT 08/10/2017 10:28 AM EST VS ARTERIOGRAM LOWER Routine 08/10/2017 9:54 Resu lts for this EXTREMITY VASCULAR AM EST procedure are in SURGERY the results section. HEMOGRAM Routine 08/10/2017 5:50 Results for this AM EST procedure are i n the results section. DIFFERENTIAL, AUTOMATED Routine 08/10/2017 5:50 R esults for this AM EST procedure are i n the results section. PROTHROMBIN TIME Routine 08/10/2017 5:50 Results for this AM EST procedure are i n the results section. CBC (WITH DIFF) Routine 08/10/2017 5:50 AM EST BASIC METABOLIC PANEL Routine 08/10/2017 5:50 Res ults for this (NON-FASTING) AM EST procedure are in the results section. POCT GLUCOSE Routine 08/10/2017 4:01 Results for this AM EST procedure are i n the results section. POCT GLUCOSE Routine 08/10/2017 2:01 Results for this AM EST procedure are i n the results section. POCT GLUCOSE Routine 08/09/2017 11:42 Results for this PM EST procedure are i n the results section. POCT GLUCOSE Routine 08/09/2017 8:55 Results for this PM EST procedure are i n the results section. APTT STAT 08/09/2017 6:42 Results for this PM EST procedure are i n the results section. POCT GLUCOSE Routine 08/09/2017 4:41 Results for this PM EST procedure are i n the results section. POCT GLUCOSE Routine 08/09/2017 12:29 Results for this PM EST procedure are i n the results section. POCT GLUCOSE Routine 08/09/2017 9:59 Results for this AM EST procedure are i n the results section. SPECIMEN TO PATHOLOGY Routine 08/09/2017 8:41 Res ults for this AM EST procedure are i n the results section. SURGICAL PATHOLOGY Routine 08/09/2017 8:40 Result s for this REPORT AM EST procedure are i n the results section. ANAEROBIC CULTURE Routine 08/09/2017 8:30 Results for this AM EST procedure are i n the results section. ABSCESS/WOUND ASP Routine 08/09/2017 8:30 CULTURE, AEROBIC AND AM EST ANAEROBIC ABSCESS/WOUND ASPIRATE Routine 08/09/2017 8:30 Re sults for this CULTURE AM EST procedure are i n the results section. AMPUTATION, 08/09/2017 8:03 Ischemia of foot TRANSMETATARSAL (WRVU AM EST 12.71) POCT GLUCOSE Routine 08/09/2017 4:28 Results for this AM EST procedure are i n the results section. ABORH RECHECK STATUS Routine 08/09/2017 1:10 Resu lts for this AM EST procedure are i n the results section. HEMOGRAM Routine 08/09/2017 1:10 Results for this AM EST procedure are i n the results section. DIFFERENTIAL, AUTOMATED Routine 08/09/2017 1:10 R esults for this AM EST procedure are i n the results section. ABO/RH TYPING Routine 08/09/2017 1:10 Results for this AM EST procedure are i n the results section. APTT STAT 08/09/2017 1:10 Results for this AM EST procedure are i n the results section. PROTHROMBIN TIME Routine 08/09/2017 1:10 Results for this AM EST procedure are i n the results section. CBC (WITH DIFF) Routine 08/09/2017 1:10 AM EST ANTIBODY SCREEN Routine 08/09/2017 1:10 Results f or this AM EST procedure are i n the results section. TYPE AND SCREEN Routine 08/09/2017 1:10 ([facility] AM EST BASIC METABOLIC PANEL Routine 08/09/2017 1:10 Res ults for this (NON-FASTING) AM EST procedure are in the results section. POCT GLUCOSE Routine 08/09/2017 12:05 Results for this AM EST procedure are i n the results section. POCT GLUCOSE Routine 08/08/2017 7:36 Results for this PM EST procedure are i n the results section. POCT GLUCOSE Routine 08/08/2017 6:23 Results for this PM EST procedure are i n the results section. APTT STAT 08/08/2017 6:00 Results for this PM EST procedure are i n the results section. POCT GLUCOSE Routine 08/08/2017 4:42 Results for this PM EST procedure are i n the results section. POCT GLUCOSE Routine 08/08/2017 4:01 Results for this PM EST procedure are i n the results section. POCT GLUCOSE Routine 08/08/2017 11:51 Results for this AM EST procedure are i n the results section. APTT STAT 08/08/2017 10:27 Results for this AM EST procedure are i n the results section. POCT GLUCOSE Routine 08/08/2017 8:02 Results for this AM EST procedure are i n the results section. HEMOGRAM Routine 08/08/2017 4:51 Results for this AM EST procedure are i n the results section. DIFFERENTIAL, AUTOMATED Routine 08/08/2017 4:51 R esults for this AM EST procedure are i n the results section. APTT Routine 08/08/2017 4:51 Results for this AM EST procedure are i n the results section. PROTHROMBIN TIME Routine 08/08/2017 4:51 Results for this AM EST procedure are i n the results section. CBC (WITH DIFF) Routine 08/08/2017 4:51 AM EST BASIC METABOLIC PANEL Routine 08/08/2017 4:51 Res ults for this (NON-FASTING) AM EST procedure are in the results section. POCT GLUCOSE Routine 08/08/2017 4:20 Results for this AM EST procedure are i n the results section. POCT GLUCOSE Routine 08/07/2017 11:11 Results for this PM EST procedure are i n the results section. APTT STAT 08/07/2017 10:18 Results for this PM EST procedure are i n the results section. POCT GLUCOSE Routine 08/07/2017 8:10 Results for this PM EST procedure are i n the results section. POCT GLUCOSE Routine 08/07/2017 5:27 Results for this PM EST procedure are i n the results section. POCT GLUCOSE Routine 08/07/2017 3:29 Results for this PM EST procedure are i n the results section. APTT STAT 08/07/2017 2:50 Results for this PM EST procedure are i n the results section. POCT GLUCOSE Routine 08/07/2017 2:23 Results for this PM EST procedure are i n the results section. POCT GLUCOSE Routine 08/07/2017 12:08 Results for this PM EST procedure are i n the results section. HEMOGRAM Routine 08/07/2017 7:30 Results for this AM EST procedure are i n the results section. DIFFERENTIAL, AUTOMATED Routine 08/07/2017 7:30 R esults for this AM EST procedure are i n the results section. CBC (WITH DIFF) Routine 08/07/2017 7:30 AM EST BASIC METABOLIC PANEL Routine 08/07/2017 7:30 Res ults for this (NON-FASTING) AM EST procedure are in the results section. POCT GLUCOSE Routine 08/07/2017 7:27 Results for this AM EST procedure are i n the results section. APTT Routine 08/07/2017 7:04 Results for this AM EST procedure are i n the results section. PROTHROMBIN TIME Routine 08/07/2017 7:04 Results for this AM EST procedure are i n the results section. POCT GLUCOSE Routine 08/07/2017 4:03 Results for this AM EST procedure are i n the results section. POCT GLUCOSE Routine 08/07/2017 12:04 Results for this AM EST procedure are i n the results section. POCT GLUCOSE Routine 08/06/2017 7:56 Results for this PM EST procedure are i n the results section. TCPO2 Routine 08/06/2017 2:32 Critical lower Results fo r this PM EST limb ischemia procedure are in Ischemic foot the results section. documented in this encounter Results POCT Glucose (08/16/2017 7:28 AM EST) P athologist Signature POC Glucose 160 65 - [address] [facility] mg/dL [facility] Comment: Supplemental ranges: <140 mg/dL before meals <180 mg/dL all other times of the day Specimen Anatomical Collection Method Collection Time Receive d Time (Source) Location / / Volume Laterality Blood specimen 08/16/2017 7:28 AM 018 7:28 (specimen) EST AM EST Yonathan Smith MD POINT OF CARE TEST ORDERABLE S Performing Organization Address City/State/[place] [address] (ABNORMAL) Differential, Automated (08/16/2017 5:08 AM EST) Patholo gist Method Time Signature Neutrophils % 73.9 % [facility] Neutr Abs (ANC) 5.37 1.70 - [facility] 6.10 [facility] x10(3)/[facility] LABORATORY Lymphocytes % 10.1 % [facility] Lymphocytes Abs 0.7 (L) 0.9 - 3.2 [facility] x10(3)/[facility] LABORATORY Monocytes % 10.1 % [facility] Monocyte Abs 0.7 0.3 - 0.9 [facility] x10(3)/[facility] LABORATORY Eosinophils % 5.1 % [facility] Eosinophils Abs 0.4 0.0 - 0.4 [facility] x10(3)/[facility] LABORATORY Basophils % 0.4 % [facility] Basophils Abs 0.0 0.0 - 0.1 [facility] x10(3)/[facility] LABORATORY Immature Gran % 0.40 % [facility] Comment: Immature granulocytes(IG's)percentage an d absolute count will include metamyelocytes, myelocytes, and promyelo cytes. Blood smears from CBCs yielding IG's will be scanned manually for concor dance. If this scan disagrees with the automated IG or if promyelocytes are not ed, a manual differential will be performed. Melisa Gran Abs 0.03 0.00 - 0.04 x10(3)/[facility] LAB[facility]ORY Specimen Anatomical Collection Method Collection Time Receive d Time (Source) Location / / Volume Laterality Blood specimen 08/16/2017 5:08 AM 018 5:20 (specimen) EST AM EST Resulting Agency Comment Spec In Lab Yonathan Smith MD HEMATOLOGY ORDERABLES Performing Organization Address City/State/[place] [address] (ABNORMAL) Hemogram (08/16/2017 5:08 AM EST) Analysis Performed At Patho logist Time Signature WBC 7.3 4.0 - 9.5 [facility] x10(3)/[facility] LABORATORY RBC 3.36 (L) 4.58 - [facility] 5.54 [facility] x10(6)/[facility] LABORATORY Hemoglobin 9.7 (L) 13.7 - [facility] 16.5 gm/dL [facility] Hematocrit 30.3 (L) 40.5 - [facility] 48.5 % [facility] MCV 90.2 82.9 - [facility] 93.1 [facility] LABORATORY MCH 28.9 27.5 - [place] 32.1 pg [facility] MCHC 32.0 32.0 - [facility] 35.7 gm/dL [facility] Platelets 282 145 - 357 [facility] x10(3)/[facility] LABORATORY RDWSD 53.9 (H) 36.0 - [facility] 45.0 [facility] LABORATORY RDWCV 16.5 (H) 11.4 - [facility] 13.8 % [facility] MPV 9.0 7.6 - 12.9 [facility] LABORATORY nRBC % Auto 0.0 % [facility] nRBC Abs Auto 0.000 0.000 - [facility] 0.000 [facility] x10(3)/[facility] LABORATORY Specimen Anatomical Collection Method Collection Time Receive d Time (Source) Location / / Volume Laterality Blood specimen 08/16/2017 5:08 AM 018 5:20 (specimen) EST AM EST Resulting Agency Comment Spec In Lab Yonathan Smith MD HEMATOLOGY ORDERABLES Performing Organization Address City/State/[place] [address] (ABNORMAL) Basic Metabolic Panel (non-fasting) (08/16/2017 5:08 AM EST) athologist Signature Glucose Lvl 141 65 - [address] [facility] mg/dL [facility] Comment: Diabetes: >=200 mg/dL plus symp toms BUN 29 (H) 10 - 20 mg/dL [facility] Creatinine 1.25 0.80 - 1.50 mg/dL [facility] Sodium 140 135 - 145 mmol/L [facility] Potassium 4.5 3.5 - 5.0 mmol/L [facility] Comment: Please note: ??Patients with WBC >100,00 0 may have falsely elevated Potassium levels. ??For accurate Potassium quantif ication in these patients send serum separator tube (gold top) for subsequent determinations. ??Contact the Clinical Chemistry Laboratory if there are any qu estions. Chloride 99 98 - 107 mmol/L [facility] CO2 28 22 - 31 mmol/L [facility] Anion Gap 13 5 - 15 mmol/L [facility] Calcium 8.7 8.5 - 10.5 mg/dL [facility] Estimated GFR 57 (L) >=60 [facility] Comment: The reported eGFR should be multiplied b y 1.2 for patients. The MDRD is not an appropriate measure o f renal function for patients with body mass extremes or in patients with acute kidney failure. http://[employer].com/DHnkdep http://All[employer].com/DHMCnkf Specimen Anatomical Collection Method Collection Time Receive d Time (Source) Location / / Volume Laterality Blood specimen 08/16/2017 5:08 AM 018 5:20 (specimen) EST AM EST Resulting Agency Comment Spec In Lab Yonathan Smith MD CHEMISTRY ORDERABLES Performing Organization Address City/State/ZIP Code Phon e Number [place] [id number] (ABNORMAL) Prothrombin Time (08/16/2017 5:08 AM EST) athologist Signature PT 25.2 (H) 11.8 - 14.0 [facility] LABORATORY INR 2.3 (H) 0.9 - 1.1 [facility] Comment: An INR <2.0 [...] Location / / Volume Laterality Blood specimen 08/16/2017 5:08 AM 018 5:20 (specimen) EST AM EST Resulting Agency Comment Spec In Lab Yonathan Smith MD HEMATOLOGY ORDERABLES Performing Organization Address City/[facility]/ZIP Code Phon e Number [address] POCT Glucose (08/16/2017 4:09 AM EST) athologist Signature POC Glucose 147 65 - 199 [place] [facility] mg/dL [facility] Comment: Supplemental ranges: <140 mg/dL before meals <180 mg/dL all other times of the day Specimen Anatomical Collection Method Collection Time Receive d Time (Source) Location / / Volume Laterality Blood specimen 08/16/2017 4:09 AM 018 4:09 (specimen) EST AM EST Yonathan Smith MD POINT OF CARE TEST ORDERABLE S Performing Organization Address City/[facility]/[place] [address] POCT Glucose (08/15/2017 11:56 PM EST) athologist Signature POC Glucose 176 65 - 199 [place] [facility] mg/dL [facility] Comment: Supplemental ranges: <140 mg/dL before meals <180 mg/dL all other times of the day Specimen Anatomical Collection Method Collection Time Receive d Time (Source) Location / / Volume Laterality Blood specimen 08/15/2017 11:56 8 (specimen) PM EST 11:56 PM EST Yonathan Smith MD POINT OF CARE TEST ORDERABLE S Performing Organization Address City/[facility]/ZIP Code Phon e Number [address] POCT Glucose (08/15/2017 8:05 PM EST) athologist Signature POC Glucose 136 65 - 199 [place] [facility] mg/dL [facility] Comment: Supplemental ranges: <140 mg/dL before meals <180 mg/dL all other times of the day Specimen Anatomical Collection Method Collection Time Receive d Time (Source) Location / / Volume Laterality Blood specimen 08/15/2017 8:05 PM 018 8:05 (specimen) EST PM EST Yonathan Smith MD POINT OF CARE TEST ORDERABLE S Performing Organization Address City/State/ZIP Code Phon e Number [address] (ABNORMAL) POCT Glucose (08/15/2017 4:50 PM EST) athologist Signature POC Glucose 232 (H) 65 - 199 [place] mg/dL [facility] Comment: Supplemental ranges: <140 mg/dL before meals <180 mg/dL all other times of the day Specimen Anatomical Collection Method Collection Time Receive d Time (Source) Location / / Volume Laterality Blood specimen 08/15/2017 4:50 PM 018 4:50 (specimen) EST PM EST Yonathan Smith MD POINT OF CARE TEST ORDERABLE S Performing Organization Address City/[facility]/ZIP Code Phon e Number [address] POCT Glucose (08/15/2017 12:04 PM EST) athologist Signature POC Glucose 135 65 - 199 [place] [facility] mg/dL [facility] Comment: Supplemental ranges: <140 mg/dL before meals <180 mg/dL all other times of the day Specimen Anatomical Collection Method Collection Time Receive d Time (Source) Location / / Volume Laterality Blood specimen 08/15/2017 12:04 8 (specimen) PM EST 12:04 PM EST Yonathan Smith MD POINT OF CARE TEST ORDERABLE S Performing Organization Address City/[facility]/[place] [address] POCT Glucose (08/15/2017 7:36 AM EST) athologist Signature POC Glucose 124 65 - 199 [place] mg/dL [facility] Comment: Supplemental ranges: <140 mg/dL before meals <180 mg/dL all other times of the day Specimen Anatomical Collection Method Collection Time Receive d Time (Source) Location / / Volume Laterality Blood specimen 08/15/2017 7:36 AM 018 7:36 (specimen) EST AM EST Yonathan Smith MD POINT OF CARE TEST ORDERABLE S Performing Organization Address City/[facility]/[place] [address] (ABNORMAL) Differential, Automated (08/15/2017 6:22 AM EST) [facility] Method Time Signature Neutrophils % 76.1 % [facility] Neutr Abs (ANC) 6.62 (H) 1.70 - [facility] 6.10 [facility] x10(3)/[facility] LABORATORY Lymphocytes % 9.3 % [facility] Lymphocytes Abs 0.8 (L) 0.9 - 3.2 [facility] x10(3)/[facility] LABORATORY Monocytes % 9.4 % [facility] Monocyte Abs 0.8 0.3 - 0.9 [facility] x10(3)/[facility] LABORATORY Eosinophils % 4.0 % [facility] Eosinophils Abs 0.4 0.0 - 0.4 [facility] x10(3)/[facility] LABORATORY Basophils % 0.6 % [facility] Basophils Abs 0.0 0.0 - 0.1 [facility] x10(3)/[facility] LABORATORY Immature Gran % 0.60 % [facility] Comment: Immature granulocytes(IG's)percentage an d absolute count will include metamyelocytes, myelocytes, and promyelo cytes. Blood smears from CBCs yielding IG's will be scanned manually for concor dance. If this scan disagrees with the automated IG or if promyelocytes are not ed, a manual differential will be performed. Melisa Gran Abs 0.05 (H) 0.00 - 0.04 x10(3)/[facility] LABORATORY Specimen Anatomical Collection Method Collection Time Receive d Time (Source) Location / / Volume Laterality Blood specimen 08/15/2017 6:22 AM 018 6:33 (specimen) EST AM EST Resulting Agency Comment Spec In Lab Yonathan Smith MD HEMATOLOGY ORDERABLES Performing Organization Address City/[facility]/[place] [address] (ABNORMAL) Hemogram (08/15/2017 6:22 AM EST) Analysis Performed At Patho logist Time Signature WBC 8.7 4.0 - 9.5 [facility] x10(3)/[facility] LABORATORY RBC 3.21 (L) 4.58 - [facility] 5.54 [facility] x10(6)/[facility] LABORATORY Hemoglobin 9.1 (L) 13.7 - [facility]m/dL [facility] LABORATORY Hematocrit 29.0 (L) 40.5 - [facility] 48.5 % [facility] LABORATORY MCV 90.3 82.9 - [facility] 93.1 [facility] LABORATORY MCH 28.3 27.5 - [facility] 32.1 pg [facility] LABORATORY MCHC 31.4 (L) 32.0 - [facility] 35.7 gm/dL [facility] LABORATORY Platelets 254 145 - 357 [facility] x10(3)/[facility] LABORATORY RDWSD 53.9 (H) 36.0 - [facility] 45.0 [facility] LABORATORY RDWCV 16.3 (H) 11.4 - [facility] 13.8 % [facility] LABORATORY MPV 8.8 7.6 - 12.9 [facility] LABORATORY nRBC % Auto 0.0 % [facility] LABORATORY nRBC Abs Auto 0.000 0.000 - [facility] 0.000 [facility] x10(3)/[facility] LABORATORY Specimen Anatomical Collection Method Collection Time Receive d Time (Source) Location / / Volume Laterality Blood specimen 08/15/2017 6:22 AM 018 6:33 (specimen) EST AM EST Resulting Agency Comment Spec In Lab Yonathan Smith MD HEMATOLOGY ORDERABLES Performing Organization Address City/State/[place] [address] (ABNORMAL) Basic Metabolic Panel (non-fasting) (08/15/2017 6:22 AM EST) P athologist Signature Glucose Lvl 118 65 - [address] [facility] mg/dL [facility] LABORATORY Comment: Diabetes: >=200 mg/dL plus symp toms BUN 27 (H) 10 - 20 mg/dL [facility] LABORATORY Creatinine 1.12 0.80 - 1.50 mg/dL [facility] LABORATORY Sodium 138 135 - 145 mmol/L [facility] LABORATORY Potassium 4.6 3.5 - 5.0 mmol/L [facility] LABORATORY Comment: Please note: ??Patients with WBC >100,00 0 may have falsely elevated Potassium levels. ??For accurate Potassium quantif ication in these patients send serum separator tube (gold top) for subsequent determinations. ??Contact the Clinical Chemistry Laboratory if there are any qu estions. Chloride 98 98 - 107 mmol/L [facility] LABORATORY CO2 29 22 - 31 mmol/L [facility] LABORATORY Anion Gap 11 5 - 15 mmol/L [facility] LABORATORY Calcium 8.8 8.5 - 10.5 mg/dL [facility] LABORATORY Estimated GFR >60 >=60 [facility] LABORATORY Comment: The reported eGFR should be multiplied b y 1.2 for patients. The MDRD is not an appropriate measure o f renal function for patients with body mass extremes or in patients with acute kidney failure. http://[email or web address]/DHnkdep http://[email or web address]/DHMCnkf Specimen Anatomical Collection Method Collection Time Receive d Time (Source) Location / / Volume Laterality Blood specimen 08/15/2017 6:22 AM 018 6:33 (specimen) EST AM EST Resulting Agency Comment Spec In Lab Yonathan Smith MD CHEMISTRY ORDERABLES Performing Organization Address City/State/[place] [address] (ABNORMAL) Prothrombin Time (08/15/2017 6:22 AM EST) athologist Signature PT 21.9 (H) 11.8 - 14.0 [facility] LABORATORY INR 1.9 (H) 0.9 - 1.1 [facility] LABORATORY Comment: An INR <2.0 [...] Location / / Volume Laterality Blood specimen 08/15/2017 6:22 AM 018 6:33 (specimen) EST AM EST Resulting Agency Comment Spec In Lab Yonathan Smith MD HEMATOLOGY ORDERABLES Performing Organization Address City/[facility]/ZIP Code Phon e Number [address] POCT Glucose (08/15/2017 4:33 AM EST) athologist Signature POC Glucose 164 65 - 199 [facility] mg/dL [facility] LABORATORY Comment: Supplemental ranges: <140 mg/dL before meals <180 mg/dL all other times of the day Specimen Anatomical Collection Method Collection Time Receive d Time (Source) Location / / Volume Laterality Blood specimen 08/15/2017 4:33 AM 018 4:33 (specimen) EST AM EST Yonathan Smith MD POINT OF CARE TEST ORDERABLE S Performing Organization Address City/[facility]/[place] [address] POCT Glucose (08/15/2017 12:12 AM EST) athologist Signature POC Glucose 89 65 - 199 [facility] mg/dL [facility] LABORATORY Comment: Supplemental ranges: <140 mg/dL before meals <180 mg/dL all other times of the day Specimen Anatomical Collection Method Collection Time Receive d Time (Source) Location / / Volume Laterality Blood specimen 08/15/2017 12:12 8 (specimen) AM EST 12:12 AM EST Yonathan Smith MD POINT OF CARE TEST ORDERABLE S Performing Organization Address City/[facility]/[place] [address] (ABNORMAL) POCT Glucose (08/14/2017 8:07 PM EST) athologist Signature POC Glucose 204 (H) 65 - 199 [facility] mg/dL [facility] LABORATORY Comment: Supplemental ranges: <140 mg/dL before meals <180 mg/dL all other times of the day Specimen Anatomical Collection Method Collection Time Receive d Time (Source) Location / / Volume Laterality Blood specimen 08/14/2017 8:07 PM 018 8:07 (specimen) EST PM EST Yonathan Smith MD POINT OF CARE TEST ORDERABLE S Performing Organization Address City/State/ZIP Code Phon e Number [address] POCT Glucose (08/14/2017 5:11 PM EST) athologist Signature POC Glucose 174 65 - 199 [facility] mg/dL [facility] LABORATORY Comment: Supplemental ranges: <140 mg/dL before meals <180 mg/dL all other times of the day Specimen Anatomical Collection Method Collection Time Receive d Time (Source) Location / / Volume Laterality Blood specimen 08/14/2017 5:11 PM 018 5:11 (specimen) EST PM EST Yonathan Smith MD POINT OF CARE TEST ORDERABLE S Performing Organization Address City/State/ZIP Code Phon e Number [address] POCT Glucose (08/14/2017 12:10 PM EST) athologist Signature POC Glucose 141 65 - 199 [facility] mg/dL [facility] LABORATORY Comment: Supplemental ranges: <140 mg/dL before meals <180 mg/dL all other times of the day Specimen Anatomical Collection Method Collection Time Receive d Time (Source) Location / / Volume Laterality Blood specimen 08/14/2017 12:10 8 (specimen) PM EST 12:10 PM EST Yonathan Smith MD POINT OF CARE TEST ORDERABLE S Performing Organization Address City/State/[place] [address] POCT Glucose (08/14/2017 8:07 AM EST) P athologist Signature POC Glucose 158 65 - [address] [facility] mg/dL [facility] LABORATORY Comment: Supplemental ranges: <140 mg/dL before meals <180 mg/dL all other times of the day Specimen Anatomical Collection Method Collection Time Receive d Time (Source) Location / / Volume Laterality Blood specimen 08/14/2017 8:07 AM 018 8:07 (specimen) EST AM EST Yonathan Smith MD POINT OF CARE TEST ORDERABLE S Performing Organization Address City/State/[place] [address] (ABNORMAL) Differential, Automated (08/14/2017 4:52 AM EST) Patholo gist Method Time Signature Neutrophils % 78.6 % [facility] LABORATORY Neutr Abs (ANC) 7.70 (H) 1.70 - [facility] 6.10 [facility] x10(3)/[facility] LABORATORY Lymphocytes % 7.8 % [facility] LABORATORY Lymphocytes Abs 0.8 (L) 0.9 - 3.2 [facility] x10(3)/[facility] LABORATORY Monocytes % 8.8 % [facility] LABORATORY Monocyte Abs 0.9 0.3 - 0.9 [facility] x10(3)/[facility] LABORATORY Eosinophils % 4.0 % [facility] LABORATORY Eosinophils Abs 0.4 0.0 - 0.4 [facility] x10(3)/[facility] LABORATORY Basophils % 0.5 % [facility] LABORATORY Basophils Abs 0.0 0.0 - 0.1 [facility] x10(3)/[facility] LABORATORY Immature Gran % 0.30 % [facility] LABORATORY Comment: Immature granulocytes(IG's)percentage an d absolute count will include metamyelocytes, myelocytes, and promyelo cytes. Blood smears from CBCs yielding IG's will be scanned manually for concor dance. If this scan disagrees with the automated IG or if promyelocytes are not ed, a manual differential will be performed. Melisa Gran Abs 0.03 0.00 - 0.04 x10(3)/[facility] LABORATORY Specimen Anatomical Collection Method Collection Time Receive d Time (Source) Location / / Volume Laterality Blood specimen 08/14/2017 4:52 AM 018 5:08 (specimen) EST AM EST Resulting Agency Comment Spec In Lab Yonathan Smith MD HEMATOLOGY ORDERABLES Performing Organization Address City/State/[place] [address] (ABNORMAL) Hemogram (08/14/2017 4:52 AM EST) Analysis Performed At Patho logist Time Signature WBC 9.8 (H) 4.0 - 9.5 [facility] x10(3)/[facility] LABORATORY RBC 3.32 (L) 4.58 - [facility] 5.54 [facility] x10(6)/[facility] LABORATORY Hemoglobin 9.5 (L) 13.7 - [facility] 16.5 gm/dL [facility] LABORATORY Hematocrit 30.3 (L) 40.5 - [facility] 48.5 % [facility] LABORATORY MCV 91.3 82.9 - [facility] 93.1 [facility] LABORATORY MCH 28.6 27.5 - [facility] 32.1 pg [facility] LABORATORY MCHC 31.4 (L) 32.0 - [facility] 35.7 gm/dL [facility] LABORATORY Platelets 263 145 - 357 [facility] x10(3)/[facility] LABORATORY RDWSD 54.8 (H) 36.0 - [facility] 45.0 [facility] LABORATORY RDWCV 16.5 (H) 11.4 - [facility] 13.8 % [facility] LABORATORY MPV 9.1 7.6 - 12.9 [facility] LABORATORY nRBC % Auto 0.0 % [facility] LABORATORY nRBC Abs Auto 0.000 0.000 - [facility] 0.000 [facility] x10(3)/[facility] LABORATORY Specimen Anatomical Collection Method Collection Time Receive d Time (Source) Location / / Volume Laterality Blood specimen 08/14/2017 4:52 AM 018 5:08 (specimen) EST AM EST Resulting Agency Comment Spec In Lab Yonathan Smith MD HEMATOLOGY ORDERABLES Performing Organization Address City/[facility]/[place] [address] (ABNORMAL) Prothrombin Time (08/14/2017 4:52 AM EST) athologist Signature PT 18.8 (H) 11.8 - 14.0 [facility] LABORATORY INR 1.6 (H) 0.9 - 1.1 [facility] LABORATORY Comment: An INR <2.0 [...] Location / / Volume Laterality Blood specimen 08/14/2017 4:52 AM 018 5:08 (specimen) EST AM EST Resulting Agency Comment Spec In Lab Yonathan Smith MD HEMATOLOGY ORDERABLES Performing Organization Address City/[facility]/[place] [address] (ABNORMAL) Basic Metabolic Panel (non-fasting) (08/14/2017 4:52 AM EST) athologist Signature Glucose Lvl 135 65 - [address] [facility] mg/dL [facility] LABORATORY Comment: Diabetes: >=200 mg/dL plus symp toms BUN 25 (H) 10 - 20 mg/dL [facility] LABORATORY Creatinine 1.36 0.80 - 1.50 mg/dL [facility] LABORATORY Sodium 141 135 - 145 mmol/L [facility] LABORATORY Potassium 4.8 3.5 - 5.0 mmol/L [facility] LABORATORY Comment: Please note: ??Patients with WBC >100,00 0 may have falsely elevated Potassium levels. ??For accurate Potassium quantif ication in these patients send serum separator tube (gold top) for subsequent determinations. ??Contact the Clinical Chemistry Laboratory if there are any qu estions. Chloride 100 98 - 107 mmol/L [facility] LABORATORY CO2 28 22 - 31 mmol/L [facility] LABORATORY Anion Gap 13 5 - 15 mmol/L [facility] LABORATORY Calcium 8.5 8.5 - 10.5 mg/dL [facility] LABORATORY Estimated GFR 52 (L) >=60 [facility] LABORATORY Comment: The reported eGFR should be multiplied b y 1.2 for patients. The MDRD is not an appropriate measure o f renal function for patients with body mass extremes or in patients with acute kidney failure. http://[email or web address]/DHnkdep http://[email or web address]/DHMCnkf Specimen Anatomical Collection Method Collection Time Receive d Time (Source) Location / / Volume Laterality Blood specimen 08/14/2017 4:52 AM 018 5:08 (specimen) EST AM EST Resulting Agency Comment Spec In Lab Yonathan Smith MD CHEMISTRY ORDERABLES Performing Organization Address City/[facility]/ZIP Code Phon e Number [address] POCT Glucose (08/14/2017 3:56 AM EST) athologist Signature POC Glucose 135 65 - [address] [facility] mg/dL [facility] LABORATORY Comment: Supplemental ranges: <140 mg/dL before meals <180 mg/dL all other times of the day Specimen Anatomical Collection Method Collection Time Receive d Time (Source) Location / / Volume Laterality Blood specimen 08/14/2017 3:56 AM 018 3:56 (specimen) EST AM EST Yonathan Smith MD POINT OF CARE TEST ORDERABLE S Performing Organization Address City/[facility]/ZIP Code Phon e Number [address] POCT Glucose (08/13/2017 11:13 PM EST) athologist Signature POC Glucose 118 65 - 199 [facility] mg/dL [facility] LABORATORY Comment: Supplemental ranges: <140 mg/dL before meals <180 mg/dL all other times of the day Specimen Anatomical Collection Method Collection Time Receive d Time (Source) Location / / Volume Laterality Blood specimen 08/13/2017 11:13 8 (specimen) PM EST 11:13 PM EST Yonathan Smith MD POINT OF CARE TEST ORDERABLE S Performing Organization Address City/State/[place] [address] (ABNORMAL) POCT Glucose (08/13/2017 8:08 PM EST) athologist Signature POC Glucose 204 (H) 65 - 199 [facility] mg/dL [facility] LABORATORY Comment: Supplemental ranges: <140 mg/dL before meals <180 mg/dL all other times of the day Specimen Anatomical Collection Method Collection Time Receive d Time (Source) Location / / Volume Laterality Blood specimen 08/13/2017 8:08 PM 018 8:08 (specimen) EST PM EST Yonathan Smith MD POINT OF CARE TEST ORDERABLE S Performing Organization Address City/State/[place] [address] POCT Glucose (08/13/2017 4:02 PM EST) athologist Signature POC Glucose 145 65 - 199 [facility] mg/dL [facility] LABORATORY Comment: Supplemental ranges: <140 mg/dL before meals <180 mg/dL all other times of the day Specimen Anatomical Collection Method Collection Time Receive d Time (Source) Location / / Volume Laterality Blood specimen 08/13/2017 4:02 PM 018 4:02 (specimen) EST PM EST Yonathan Smith MD POINT OF CARE TEST ORDERABLE S Performing Organization Address City/State/[place] [address] POCT Glucose (08/13/2017 11:31 AM EST) athologist Signature POC Glucose 179 65 - 199 [facility] mg/dL [facility] LABORATORY Comment: Supplemental ranges: <140 mg/dL before meals <180 mg/dL all other times of the day Specimen Anatomical Collection Method Collection Time Receive d Time (Source) Location / / Volume Laterality Blood specimen 08/13/2017 11:31 8 (specimen) AM EST 11:31 AM EST oYnathan Smith MD POINT OF CARE TEST ORDERABLE S Performing Organization Address City/[facility]/[place] [address] (ABNORMAL) POCT Glucose (08/13/2017 10:16 AM EST) P athologist Signature POC Glucose 211 (H) 65 - [address] [facility] mg/dL [facility] LABORATORY Comment: Supplemental ranges: <140 mg/dL before meals <180 mg/dL all other times of the day Specimen Anatomical Collection Method Collection Time Receive d Time (Source) Location / / Volume Laterality Blood specimen 08/13/2017 10:16 8 (specimen) AM EST 10:16 AM EST Yonathan Smith MD POINT OF CARE TEST ORDERABLE S Performing Organization Address City/State/[place] [address] JULIAN, legs, multiple levels (08/13/2017 7:42 AM EST) Component Value Ref Test Analysis Performed At Patholo gist Range Method Time Signature VB Text Department: Vascular Surgery Lab VASCUBASE Report Patient: [id number] (GREGORY HOANG) CPT: 98763 ICD10: I99.8 Referring Physician: YONATHAN SMITH ?? Indications: s/p R 1,2,3 toe amps with red left foot, need n ew baseline Diabetes mellitus: yes ICD10 Diagnosis Code: I99.8 Findings: Right ?Pressure (mm Hg) ?? JULIAN ??Waveform ?TBI ?? Brachial Artery ?138 ? Dorsalis Pedis (Ankle) Arter y ?132 ? 0.94 ??Twiggs- Biphasic ? Posterior Tibial (Ankle) Art anila ??154 ? 1.10 ??Twiggs-Biphasic ? Fourth Toe ? 67 ? 0.48 ?? Left ? Pressure (mm Hg) ?? JULIAN ??Waveform ?? TBI ?? Brachial Artery ?140 ? Dorsalis Pedis (Ankle) Arter y ?151 ? 1.08 ??Biphasic ? Posterior Tibial (Ankle) Art anila ??143 ? 1.02 ??Biphasic ? Great Toe ?54 ?0.39 ?? Interpretation: RIGHT: Mild lower extremity arterial occlusive disease. Toe- brachial index substantially lower than ankle-brachial index indicate s presence of moderate arterial occlusive disease in the foot. Significant de terioration in Doppler waveforms compared to previous exam. LEFT: Mild lower extremity arterial occlusive disease. Toe-b rachial index substantially lower than ankle-brachial index indicate s presence of moderate arterial occlusive disease in the foot. Significant de terioration in Doppler waveforms compared to previous exam. No significant change i n Toe index. Comment: The ankle pressures are falsely elevated compared t o the Doppler waveforms, Thus, disease sev erity is based on Doppler waveforms only as there is addition small vessel disease in the foot. Previous ABIs with change from previous value: Date ?RIGHT DP ?? RIGHT PT ?? RT GR TOE ??LEFT DP ?LEFT PT ?LT GR TOE ??1.19 ? 1 .31 ? 0.00 ? 1.26 ? 1.12 ? 0.41 Current ? 0.94(-.25) 1.1 0(-.21) ---- ? 1.08(-.18) 1.02(-.10) 0.39(-.02) Electronically Signed by: LYNNE ELIAS on 2017-08-13 09:52 :49 AM VB Text End of Report VASCUBASE Report Specimen (Source) Anatomical Collection Method Collection Time Re ceived Time Location / / Volume Laterality 08/13/2017 7:42 AM EST Yonathan Smith MD VASCULAR ORDERABLES Performing Organization Address City/State/ZIP Code Phon e Number VASCUBASE POCT Glucose (08/13/2017 7:33 AM EST) athologist Signature POC Glucose 156 65 - [address] [facility] mg/dL [facility] LABORATORY Comment: Supplemental ranges: <140 mg/dL before meals <180 mg/dL all other times of the day Specimen Anatomical Collection Method Collection Time Receive d Time (Source) Location / / Volume Laterality Blood specimen 08/13/2017 7:33 AM 018 7:33 (specimen) EST AM EST Yonathan Smith MD POINT OF CARE TEST ORDERABLE S Performing Organization Address City/[facility]/[place] [address] (ABNORMAL) Differential, Automated (08/13/2017 5:33 AM EST) Patholo gist Method Time Signature Neutrophils % 77.8 % [facility] LABORATORY Neutr Abs (ANC) 7.83 (H) 1.70 - [facility] 6.10 [facility] x10(3)/[facility] LABORATORY Lymphocytes % 8.4 % [facility] LABORATORY Lymphocytes Abs 0.8 (L) 0.9 - 3.2 [facility] x10(3)/[facility] LABORATORY Monocytes % 8.3 % [facility] LABORATORY Monocyte Abs 0.8 0.3 - 0.9 [facility] x10(3)/[facility] LABORATORY Eosinophils % 4.6 % [facility] LABORATORY Eosinophils Abs 0.5 (H) 0.0 - 0.4 [facility] x10(3)/[facility] LABORATORY Basophils % 0.5 % [facility] LABORATORY Basophils Abs 0.0 0.0 - 0.1 [facility] x10(3)/[facility] LABORATORY Immature Gran % 0.40 % [facility] LABORATORY Comment: Immature granulocytes(IG's)percentage an d absolute count will include metamyelocytes, myelocytes, and promyelo cytes. Blood smears from CBCs yielding IG's will be scanned manually for concor dance. If this scan disagrees with the automated IG or if promyelocytes are not ed, a manual differential will be performed. Melisa Gran Abs 0.04 0.00 - 0.04 x10(3)/[facility] LABORATORY Specimen Anatomical Collection Method Collection Time Receive d Time (Source) Location / / Volume Laterality Blood specimen 08/13/2017 5:33 AM 018 6:04 (specimen) EST AM EST Resulting Agency Comment Spec In Lab Yonathan Smith MD HEMATOLOGY ORDERABLES Performing Organization Address City/State/[place] [address] (ABNORMAL) Hemogram (08/13/2017 5:33 AM EST) Analysis Performed At Patho logist Time Signature WBC 10.1 (H) 4.0 - 9.5 [facility] x10(3)/[facility] LABORATORY RBC 3.21 (L) 4.58 - [facility] 5.54 [facility] x10(6)/[facility] LABORATORY Hemoglobin 9.2 (L) 13.7 - [facility] 16.5 gm/dL [facility] LABORATORY Hematocrit 29.6 (L) 40.5 - [facility] 48.5 % [facility] LABORATORY MCV 92.2 82.9 - [facility] 93.1 [facility] LABORATORY MCH 28.7 27.5 - [facility] 32.1 pg [facility] LABORATORY MCHC 31.1 (L) 32.0 - [facility] 35.7 gm/dL [facility] LABORATORY Platelets 263 145 - 357 [facility] x10(3)/[facility] LABORATORY RDWSD 54.8 (H) 36.0 - [facility] 45.0 [facility] LABORATORY RDWCV 16.4 (H) 11.4 - [facility] SU 13.8 % [facility] LABORATORY MPV 9.2 7.6 - 12.9 [facility] nRBC % Auto 0.0 % [facility] LABORATORY nRBC Abs Auto 0.000 0.000 - [facility] 0.000 [facility] x10(3)/[facility] LABORATORY Specimen Anatomical Collection Method Collection Time Receive d Time (Source) Location / / Volume Laterality Blood specimen 08/13/2017 5:33 AM 018 6:04 (specimen) EST AM EST Resulting Agency Comment Spec In Lab Yonathan Smith MD HEMATOLOGY ORDERABLES Performing Organization Address City/State/[place] [address] (ABNORMAL) Prothrombin Time (08/13/2017 5:33 AM EST) athologist Signature PT 17.3 (H) 11.8 - 14.0 [facility] LABORATORY INR 1.4 (H) 0.9 - 1.1 [facility] LABORATORY Comment: An INR <2.0 [...] Location / / Volume Laterality Blood specimen 08/13/2017 5:33 AM 018 6:04 (specimen) EST AM EST Resulting Agency Comment Spec In Lab Yonathan Smith MD HEMATOLOGY ORDERABLES Performing Organization Address City/State/[place] [address] (ABNORMAL) Basic Metabolic Panel (non-fasting) (08/13/2017 5:33 AM EST) athologist Signature Glucose Lvl 126 65 - [address] [facility] mg/dL [facility] LABORATORY Comment: Diabetes: >=200 mg/dL plus symp toms BUN 18 10 - 20 mg/dL [facility] LABORATORY Creatinine 1.16 0.80 - 1.50 mg/dL [facility] LABORATORY Sodium 141 135 - 145 mmol/L [facility] LABORATORY Potassium 4.6 3.5 - 5.0 mmol/L [facility] LABORATORY Comment: Please note: ??Patients with WBC >100,00 0 may have falsely elevated Potassium levels. ??For accurate Potassium quantif ication in these patients send serum separator tube (gold top) for subsequent determinations. ??Contact the Clinical Chemistry Laboratory if there are any qu estions. Chloride 100 98 - 107 mmol/L [facility] CO2 29 22 - 31 mmol/L [facility] Anion Gap 12 5 - 15 mmol/L [facility] Calcium 7.9 (L) 8.5 - 10.5 mg/dL [facility] Estimated GFR >60 >=60 [facility] Comment: The reported eGFR should be multiplied b y 1.2 for patients. The MDRD is not an appropriate measure o f renal function for patients with body mass extremes or in patients with acute kidney failure. http://[email or web address] http://[email or web address] Specimen Anatomical Collection Method Collection Time Receive d Time (Source) Location / / Volume Laterality Blood specimen 08/13/2017 5:33 AM 018 6:04 (specimen) EST AM EST Resulting Agency Comment Spec In Lab Yonathan Smith MD CHEMISTRY ORDERABLES Performing Organization Address City/[facility] Phon e Number [address] POCT Glucose (08/13/2017 4:29 AM EST) athologist Signature POC Glucose 111 65 - 199 [place] [facility] mg/dL [facility] Comment: Supplemental ranges: <140 mg/dL before meals <180 mg/dL all other times of the day Specimen Anatomical Collection Method Collection Time Receive d Time (Source) Location / / Volume Laterality Blood specimen 08/13/2017 4:29 AM 018 4:29 (specimen) EST AM EST Yonathan Smith MD POINT OF CARE TEST ORDERABLE S Performing Organization Address [place]/[facility] Phon e Number [address] POCT Glucose (08/12/2017 11:28 PM EST) athologist Signature POC Glucose 164 65 - 199 [place] [facility] mg/dL [facility] Comment: Supplemental ranges: <140 mg/dL before meals <180 mg/dL all other times of the day Specimen Anatomical Collection Method Collection Time Receive d Time (Source) Location / / Volume Laterality Blood specimen 08/12/2017 11:28 8 (specimen) PM EST 11:28 PM EST Yonathan Smith MD POINT OF CARE TEST ORDERABLE S Performing Organization Address City/[facility]/ZIP [facility] Phon e Number [address] (ABNORMAL) POCT Glucose (08/12/2017 7:40 PM EST) athologist Signature POC Glucose 209 (H) 65 - 199 [facility] mg/dL [facility] Comment: Supplemental ranges: <140 mg/dL before meals <180 mg/dL all other times of the day Specimen Anatomical Collection Method Collection Time Receive d Time (Source) Location / / Volume Laterality Blood specimen 08/12/2017 7:40 PM 018 7:40 (specimen) EST PM EST Yonathan Smith MD POINT OF CARE TEST ORDERABLE S Performing Organization Address City/State/ZIP Code Phon e Number [address] POCT Glucose (08/12/2017 4:24 PM EST) athologist Signature POC Glucose 161 65 - 199 [place] [facility] mg/dL [facility] Comment: Supplemental ranges: <140 mg/dL before meals <180 mg/dL all other times of the day Specimen Anatomical Collection Method Collection Time Receive d Time (Source) Location / / Volume Laterality Blood specimen 08/12/2017 4:24 PM 018 4:24 (specimen) EST PM EST Yonathan Smith MD POINT OF CARE TEST ORDERABLE S Performing Organization Address City/State/ZIP Code Phon e Number [address] POCT Glucose (08/12/2017 12:00 PM EST) athologist Signature POC Glucose 167 65 - 199 [place] [facility] mg/dL [facility] Comment: Supplemental ranges: <140 mg/dL before meals <180 mg/dL all other times of the day Specimen Anatomical Collection Method Collection Time Receive d Time (Source) Location / / Volume Laterality Blood specimen 08/12/2017 12:00 8 (specimen) PM EST 12:00 PM EST Yonathan Smith MD POINT OF CARE TEST ORDERABLE S Performing Organization Address City/State/[place] [address] POCT Glucose (08/12/2017 7:25 AM EST) athologist Signature POC Glucose 152 65 - 199 [place] [facility] mg/dL [facility] Comment: Supplemental ranges: <140 mg/dL before meals <180 mg/dL all other times of the day Specimen Anatomical Collection Method Collection Time Receive d Time (Source) Location / / Volume Laterality Blood specimen 08/12/2017 7:25 AM 018 7:25 (specimen) EST AM EST Yonathan Smith MD POINT OF CARE TEST ORDERABLE S Performing Organization Address City/State/[place] [address] [facility] LAB[address]ATORY Drive (ABNORMAL) Differential, Automated (08/12/2017 6:29 AM EST) [facility] Method Time Signature Neutrophils % 78.7 % [facility] Neutr Abs (ANC) 7.94 (H) 1.70 - [facility] 6.10 [facility] x10(3)/[facility] LABORATORY Lymphocytes % 8.8 % [facility] Lymphocytes Abs 0.9 0.9 - 3.2 [facility] x10(3)/[facility] LABORATORY Monocytes % 7.8 % [facility] Monocyte Abs 0.8 0.3 - 0.9 [facility] x10(3)/[facility] LABORATORY Eosinophils % 3.9 % [facility] Eosinophils Abs 0.4 0.0 - 0.4 [facility] x10(3)/[facility] LABORATORY Basophils % 0.3 % [facility] Basophils Abs 0.0 0.0 - 0.1 [facility] x10(3)/[facility] LABORATORY Immature Gran % 0.50 % [facility] Comment: Immature granulocytes(IG's)percentage an d absolute count will include metamyelocytes, myelocytes, and promyelo cytes. Blood smears from CBCs yielding IG's will be scanned manually for concor dance. If this scan disagrees with the automated IG or if promyelocytes are not ed, a manual differential will be performed. Melisa Gran Abs 0.05 (H) 0.00 - 0.04 x10(3)/[facility] LABORATORY Specimen Anatomical Collection Method Collection Time Receive d Time (Source) Location / / Volume Laterality Blood specimen 08/12/2017 6:29 AM 018 6:38 (specimen) EST AM EST Resulting Agency Comment Spec In Lab Yonathan Smith MD HEMATOLOGY ORDERABLES Performing Organization Address City/State/[place] [address] (ABNORMAL) Hemogram (08/12/2017 6:29 AM EST) Analysis Performed At Patho logist Time Signature WBC 10.1 (H) 4.0 - 9.5 [facility] x10(3)/[facility] LABORATORY RBC 3.02 (L) 4.58 - [facility] 5.54 [facility] x10(6)/[facility] LABORATORY Hemoglobin 8.7 (L) 13.7 - [facility] 16.5 gm/dL [facility] Hematocrit 28.1 (L) 40.5 - [facility] 48.5 % [facility] MCV 93.0 82.9 - [facility] 93.1 [facility] LABORATORY MCH 28.8 27.5 - [facility] 32[facility]1 pg [facility] MCHC 31.0 (L) 32.0 - [facility] 35.7 gm/dL [facility] Platelets 223 145 - 357 [facility] x10(3)/[facility] LABORATORY RDWSD 56.1 (H) 36.0 - [facility] 45.0 [facility] LABORATORY RDWCV 16.4 (H) 11.4 - [facility] 13.8 % [facility] MPV 9.0 7.6 - 12.9 [facility] LABORATORY nRBC % Auto 0.0 % [facility] nRBC Abs Auto 0.000 0.000 - [facility] 0.000 [facility] x10(3)/[facility] LABORATORY Specimen Anatomical Collection Method Collection Time Receive d Time (Source) Location / / Volume Laterality Blood specimen 08/12/2017 6:29 AM 018 6:38 (specimen) EST AM EST Resulting Agency Comment Spec In Lab Yonathan Smith MD HEMATOLOGY ORDERABLES Performing Organization Address City/State/ZIP Code Phon e Number [address] (ABNORMAL) Prothrombin Time (08/12/2017 6:29 AM EST) P athologist Signature PT 16.1 (H) 11.8 - 14.0 [facility] LABORATORY INR 1.3 (H) 0.9 - 1.1 [facility] Comment: An INR <2.0 [...] Location / / Volume Laterality Blood specimen 08/12/2017 6:29 AM 018 6:38 (specimen) EST AM EST Resulting Agency Comment Spec In Lab Yonathan Smith MD HEMATOLOGY ORDERABLES Performing Organization Address City/State/[place] [address] (ABNORMAL) Basic Metabolic Panel (non-fasting) (08/12/2017 6:29 AM EST) P athologist Signature Glucose Lvl 151 65 - [address] [facility] mg/dL [facility] Comment: Diabetes: >=200 mg/dL plus symp toms BUN 18 10 - 20 mg/dL [facility] Creatinine 1.11 0.80 - 1.50 mg/dL [facility] Sodium 138 135 - 145 mmol/L [facility] Potassium 4.6 3.5 - 5.0 mmol/L [facility] Comment: Please note: ??Patients with WBC >100,00 0 may have falsely elevated Potassium levels. ??For accurate Potassium quantif ication in these patients send serum separator tube (gold top) for subsequent determinations. ??Contact the Clinical Chemistry Laboratory if there are any qu estions. Chloride 99 98 - 107 mmol/L [facility] CO2 28 22 - 31 mmol/L [facility] Anion Gap 11 5 - 15 mmol/L [facility] Calcium 7.9 (L) 8.5 - 10.5 mg/dL [facility] Estimated GFR >60 >=60 [facility] Comment: The reported eGFR should be multiplied b y 1.2 for patients. The MDRD is not an appropriate measure o f renal function for patients with body mass extremes or in patients with acute kidney failure. http://[email or web address] http://[email or web address] Specimen Anatomical Collection Method Collection Time Receive d Time (Source) Location / / Volume Laterality Blood specimen 08/12/2017 6:29 AM 018 6:38 (specimen) EST AM EST Resulting Agency Comment Spec In Lab Yonathan Smith MD CHEMISTRY ORDERABLES Performing Organization Address City/[facility]/ZIP Code Phon e Number [address] POCT Glucose (08/12/2017 4:08 AM EST) athologist Signature POC Glucose 181 65 - 199 [facility] mg/dL [facility] Comment: Supplemental ranges: <140 mg/dL before meals <180 mg/dL all other times of the day Specimen Anatomical Collection Method Collection Time Receive d Time (Source) Location / / Volume Laterality Blood specimen 08/12/2017 4:08 AM 018 4:08 (specimen) EST AM EST Yonathan Smith MD POINT OF CARE TEST ORDERABLE S Performing Organization Address City/[facility]/[place] [address] (ABNORMAL) POCT Glucose (08/12/2017 12:17 AM EST) athologist Signature POC Glucose 221 (H) 65 - 199 [facility] Comment: Supplemental ranges: <140 mg/dL before meals <180 mg/dL all other times of the day Specimen Anatomical Collection Method Collection Time Receive d Time (Source) Location / / Volume Laterality Blood specimen 08/12/2017 12:17 8 (specimen) AM EST 12:17 AM EST Yonathan Smith MD POINT OF CARE TEST ORDERABLE S Performing Organization Address City/[facility]/[place] [address] (ABNORMAL) POCT Glucose (08/11/2017 8:52 PM EST) athologist Signature POC Glucose 221 (H) 65 - 199 [facility]dL [facility] Comment: Supplemental ranges: <140 mg/dL before meals <180 mg/dL all other times of the day Specimen Anatomical Collection Method Collection Time Receive d Time (Source) Location / / Volume Laterality Blood specimen 08/11/2017 8:52 PM 018 8:52 (specimen) EST PM EST Yonathan Smith MD POINT OF CARE TEST ORDERABLE S Performing Organization Address City/State/[place] [address] POCT Glucose (08/11/2017 5:59 PM EST) athologist Signature POC Glucose 169 65 - 199 [facility]dL [facility] Comment: Supplemental ranges: <140 mg/dL before meals <180 mg/dL all other times of the day Specimen Anatomical Collection Method Collection Time Receive d Time (Source) Location / / Volume Laterality Blood specimen 08/11/2017 5:59 PM 018 5:59 (specimen) EST PM EST Yonathan Smith MD POINT OF CARE TEST ORDERABLE S Performing Organization Address City/[facility]/[place] [address] (ABNORMAL) POCT Glucose (08/11/2017 4:08 PM EST) athologist Signature POC Glucose 240 (H) 65 - 199 [facility]dL [facility] Comment: Supplemental ranges: <140 mg/dL before meals <180 mg/dL all other times of the day Specimen Anatomical Collection Method Collection Time Receive d Time (Source) Location / / Volume Laterality Blood specimen 08/11/2017 4:08 PM 018 4:08 (specimen) EST PM EST Yonathan Smith MD POINT OF CARE TEST ORDERABLE S Performing Organization Address City/State/[place] [address] POCT Glucose (08/11/2017 12:04 PM EST) athologist Signature POC Glucose 182 65 - 199 [facility] mg/dL [facility] Comment: Supplemental ranges: <140 mg/dL before meals <180 mg/dL all other times of the day Specimen Anatomical Collection Method Collection Time Receive d Time (Source) Location / / Volume Laterality Blood specimen 08/11/2017 12:04 8 (specimen) PM EST 12:04 PM EST Yonathan Smith MD POINT OF CARE TEST ORDERABLE S Performing Organization Address City/State/ZIP Code Phon e Number [address] POCT Glucose (08/11/2017 7:31 AM EST) athologist Signature POC Glucose 156 65 - 199 [facility] mg/dL [facility] Comment: Supplemental ranges: <140 mg/dL before meals <180 mg/dL all other times of the day Specimen Anatomical Collection Method Collection Time Receive d Time (Source) Location / / Volume Laterality Blood specimen 08/11/2017 7:31 AM 018 7:31 (specimen) EST AM EST Yonathan Smith MD POINT OF CARE TEST ORDERABLE S Performing Organization Address City/State/ZIP Code Phon e Number [address] (ABNORMAL) Differential, Automated (08/11/2017 6:16 AM EST) [facility] gist Method Time Signature Neutrophils % 83.7 % [facility] Neutr Abs (ANC) 10.76 (H) 1.70 - [facility] 6.10 [facility] x10(3)/[facility] LABORATORY Lymphocytes % 6.0 % [facility] Lymphocytes Abs 0.8 (L) 0.9 - 3.2 [facility] x10(3)/[facility] LABORATORY Monocytes % 7.5 % [facility] Monocyte Abs 1.0 (H) 0.3 - 0.9 [facility] x10(3)/[facility] LABORATORY Eosinophils % 2.0 % [facility] Eosinophils Abs 0.3 0.0 - 0.4 [facility] x10(3)/[facility] LABORATORY Basophils % 0.3 % [facility] Basophils Abs 0.0 0.0 - 0.1 [facility] x10(3)/[facility] LABORATORY Immature Gran % 0.50 % [facility] Comment: Immature granulocytes(IG's)percentage an d absolute count will include metamyelocytes, myelocytes, and promyelo cytes. Blood smears from CBCs yielding IG's will be scanned manually for concor dance. If this scan disagrees with the automated IG or if promyelocytes are not ed, a manual differential will be performed. Melisa Gran Abs 0.06 (H) 0.00 - 0.04 x10(3)/[facility] LABORATORY Specimen Anatomical Collection Method Collection Time Receive d Time (Source) Location / / Volume Laterality Blood specimen 08/11/2017 6:16 AM 018 6:24 (specimen) EST AM EST Resulting Agency Comment Spec In Lab Yonathan Smith MD HEMATOLOGY ORDERABLES Performing Organization Address City/State/ZIP Code Phon e Number [place] [id number] (ABNORMAL) Hemogram (08/11/2017 6:16 AM EST) Analysis Performed At Patho logist Time Signature WBC 12.9 (H) 4.0 - 9.5 [facility] x10(3)/[facility] LABORATORY RBC 3.28 (L) 4.58 - [facility] 5.54 [facility] x10(6)/[facility] LABORATORY Hemoglobin 9.5 (L) 13.7 - [facility] 16.5 gm/dL [facility] Hematocrit 29.8 (L) 40.5 - [facility] 48.5 % [facility] MCV 90.9 82.9 - [facility] 93.1 fL [facility] MCH 29.0 27.5 - [facility] 32.1 pg [facility] MCHC 31.9 (L) 32.0 - [facility] 35.7 gm/dL [facility] Platelets 236 145 - 357 [facility] x10(3)/[facility] LABORATORY RDWSD 53.5 (H) 36.0 - [facility] 45.0 [facility] LABORATORY RDWCV 16.3 (H) 11.4 - [facility] 13.8 % [facility] MPV 8.8 7.6 - 12.9 [facility] LABORATORY nRBC % Auto 0.0 % [facility] nRBC Abs Auto 0.000 0.000 - [facility] 0.000 [facility] x10(3)/[facility] LABORATORY Specimen Anatomical Collection Method Collection Time Receive d Time (Source) Location / / Volume Laterality Blood specimen 08/11/2017 6:16 AM 018 6:24 (specimen) EST AM EST Resulting Agency Comment Spec In Lab Yonathan Smith MD HEMATOLOGY ORDERABLES Performing Organization Address City/[facility] [place] [address] (ABNORMAL) Prothrombin Time (08/11/2017 6:16 AM EST) P athologist Signature PT 15.5 (H) 11.8 - 14.0 [facility] LABORATORY INR 1.3 (H) 0.9 - 1.1 [facility] Comment: An INR <2.0 [...] Location / / Volume Laterality Blood specimen 08/11/2017 6:16 AM 018 6:24 (specimen) EST AM EST Resulting Agency Comment Spec In Lab Yonathan Smith MD HEMATOLOGY ORDERABLES Performing Organization Address City/[facility] [place] [address] Basic Metabolic Panel (non-fasting) (08/11/2017 6:16 AM EST) P athologist Signature Glucose Lvl 139 65 - [address] [facility] mg/dL [facility] Comment: Diabetes: >=200 mg/dL plus symp toms BUN 12 10 - 20 mg/dL [facility] Creatinine 0.91 0.80 - 1.50 mg/dL [facility] Sodium 138 135 - 145 mmol/L [facility] Potassium 4.6 3.5 - 5.0 mmol/L [facility] Comment: Please note: ??Patients with WBC >100,00 0 may have falsely elevated Potassium levels. ??For accurate Potassium quantif ication in these patients send serum separator tube (gold top) for subsequent determinations. ??Contact the Clinical Chemistry Laboratory if there are any qu estions. Chloride 98 98 - 107 mmol/L [facility] CO2 27 22 - 31 mmol/L [facility] Anion Gap 13 5 - 15 mmol/L [facility] Calcium 8.5 8.5 - 10.5 mg/dL [facility] Estimated GFR >60 >=60 [facility] Comment: The reported eGFR should be multiplied b y 1.2 for patients. The MDRD is not an appropriate measure o f renal function for patients with body mass extremes or in patients with acute kidney failure. http://[email or web address]/DHnkdep http://[email or web address]/DHMCnkf Specimen Anatomical Collection Method Collection Time Receive d Time (Source) Location / / Volume Laterality Blood specimen 08/11/2017 6:16 AM 018 6:24 (specimen) EST AM EST Resulting Agency Comment Spec In Lab Yonathan Smith MD CHEMISTRY ORDERABLES Performing Organization Address City/State/[place] [address] POCT Glucose (08/11/2017 4:07 AM EST) athologist Signature POC Glucose 162 65 - [address] [facility] mg/dL [facility] Comment: Supplemental ranges: <140 mg/dL before meals <180 mg/dL all other times of the day Specimen Anatomical Collection Method Collection Time Receive d Time (Source) Location / / Volume Laterality Blood specimen 08/11/2017 4:07 AM 018 4:07 (specimen) EST AM EST Yonathan Smith MD POINT OF CARE TEST ORDERABLE S Performing Organization Address City/State/[place] [address] POCT Glucose (08/10/2017 11:59 PM EST) athologist Signature POC Glucose 166 65 - 199 [facility] mg/dL [facility] Comment: Supplemental ranges: <140 mg/dL before meals <180 mg/dL all other times of the day Specimen Anatomical Collection Method Collection Time Receive d Time (Source) Location / / Volume Laterality Blood specimen 08/10/2017 11:59 8 (specimen) PM EST 11:59 PM EST Yonathan Smith MD POINT OF CARE TEST ORDERABLE S Performing Organization Address City/[facility]/[place] [address] POCT Glucose (08/10/2017 8:12 PM EST) athologist Signature POC Glucose 156 65 - 199 [facility] mg/dL [facility] Comment: Supplemental ranges: <140 mg/dL before meals <180 mg/dL all other times of the day Specimen Anatomical Collection Method Collection Time Receive d Time (Source) Location / / Volume Laterality Blood specimen 08/10/2017 8:12 PM 018 8:12 (specimen) EST PM EST Yonathan Smith MD POINT OF CARE TEST ORDERABLE S Performing Organization Address City/State/[place] [address] (ABNORMAL) POCT Glucose (08/10/2017 4:42 PM EST) athologist Signature POC Glucose 211 (H) 65 - 199 [facility] mg/dL [facility] Comment: Supplemental ranges: <140 mg/dL before meals <180 mg/dL all other times of the day Specimen Anatomical Collection Method Collection Time Receive d Time (Source) Location / / Volume Laterality Blood specimen 08/10/2017 4:42 PM 018 4:42 (specimen) EST PM EST Yonathan Smith MD POINT OF CARE TEST ORDERABLE S Performing Organization Address City/State/[place] [address] (ABNORMAL) Differential, Automated (08/10/2017 2:30 PM EST) [facility] gist Method Time Signature Neutrophils % 87.6 % [facility] Neutr Abs (ANC) 9.90 (H) 1.70 - [facility] 6.10 [facility] x10(3)/[facility] LABORATORY Lymphocytes % 4.3 % [facility] Lymphocytes Abs 0.5 (L) 0.9 - 3.2 [facility] x10(3)/[facility] LABORATORY Monocytes % 6.0 % [facility] Monocyte Abs 0.7 0.3 - 0.9 [facility] x10(3)/[facility] LABORATORY Eosinophils % 1.1 % [facility] Eosinophils Abs 0.1 0.0 - 0.4 [facility] x10(3)/[facility] LABORATORY Basophils % 0.4 % [facility] Basophils Abs 0.0 0.0 - 0.1 [facility] x10(3)/[facility] LABORATORY Immature Gran % 0.60 % [facility] Comment: Immature granulocytes(IG's)percentage an d absolute count will include metamyelocytes, myelocytes, and promyelo cytes. Blood smears from CBCs yielding IG's will be scanned manually for concor dance. If this scan disagrees with the automated IG or if promyelocytes are not ed, a manual differential will be performed. Melisa Gran Abs 0.07 (H) 0.00 - 0.04 x10(3)/[facility] [facility] LAB[facility]ORY Specimen Anatomical Collection Method Collection Time Receive d Time (Source) Location / / Volume Laterality Blood specimen 08/10/2017 2:30 PM 018 2:48 (specimen) EST PM EST Resulting Agency Comment Spec In Lab Yonathan Smith MD HEMATOLOGY ORDERABLES Performing Organization Address City/State/[place] [address] (ABNORMAL) Hemogram (08/10/2017 2:30 PM EST) Analysis Performed At Patho logist Time Signature WBC 11.3 (H) 4.0 - 9.5 [facility] x10(3)/[facility] LABORATORY RBC 3.13 (L) 4.58 - [place] SU 5.54 [facility] x10(6)/[facility] LABORATORY Hemoglobin 8.9 (L) 13.7 - [facility] gm/dL [facility] LABORATORY Hematocrit 28.4 (L) 40.5 - [facility] 48.5 % [facility] LABORATORY MCV 90.7 82.9 - [facility] 93.1 [facility] LABORATORY MCH 28.4 27.5 - [place] [facility] 32.1 pg [facility] LABORATORY MCHC 31.3 (L) 32.0 - [place] [facility] 35.7 gm/dL [facility] LABORATORY Platelets 213 145 - 357 [facility] x10(3)/[facility] LABORATORY RDWSD 53.7 (H) 36.0 - [facility] 45.0 [facility] LABORATORY RDWCV 16.4 (H) 11.4 - [facility] 13.8 % [facility] LABORATORY MPV 8.9 7.6 - 12.9 [facility] LABORATORY nRBC % Auto 0.0 % [facility] LABORATORY nRBC Abs Auto 0.000 0.000 - [facility] SU 0.000 [facility] x10(3)/[facility] LABORATORY Specimen Anatomical Collection Method Collection Time Receive d Time (Source) Location / / Volume Laterality Blood specimen 08/10/2017 2:30 PM 018 2:48 (specimen) EST PM EST Resulting Agency Comment Spec In Lab Yonathan Smith MD HEMATOLOGY ORDERABLES Performing Organization Address City/[facility]/[place] [address] (ABNORMAL) POCT Glucose (08/10/2017 1:50 PM EST) athologist Signature POC Glucose 243 (H) 65 - 199 [facility] mg/dL [facility] LABORATORY Comment: Supplemental ranges: <140 mg/dL before meals <180 mg/dL all other times of the day Specimen Anatomical Collection Method Collection Time Receive d Time (Source) Location / / Volume Laterality Blood specimen 08/10/2017 1:50 PM 018 1:50 (specimen) EST PM EST Yonathan Smith MD POINT OF CARE TEST ORDERABLE S Performing Organization Address City/State/ZIP Code Phon e Number [address] POCT Glucose (08/10/2017 11:21 AM EST) athologist [facility] POC Glucose 156 65 - 199 [facility] mg/dL [facility] LABORATORY Comment: Supplemental ranges: <140 mg/dL before meals <180 mg/dL all other times of the day Specimen Anatomical Collection Method Collection Time Receive d Time (Source) Location / / Volume Laterality Blood specimen 08/10/2017 11:21 8 (specimen) AM EST 11:21 AM EST Yonathan Smith MD POINT OF CARE TEST ORDERABLE S Performing Organization Address City/State/ZIP Code Phon e Number [address] (ABNORMAL) Differential, Automated (08/10/2017 10:28 AM EST) [facility] gist Method Time Signature Neutrophils % 85.3 % [facility] LABORATORY Neutr Abs (ANC) 9.43 (H) 1.70 - [facility] 6.10 [facility] x10(3)/[facility] LABORATORY Lymphocytes % 5.5 % [facility] LABORATORY Lymphocytes Abs 0.6 (L) 0.9 - 3.2 [facility] x10(3)/[facility] LABORATORY Monocytes % 5.9 % [facility] LABORATORY Monocyte Abs 0.6 0.3 - 0.9 [facility] x10(3)/[facility] LABORATORY Eosinophils % 2.1 % [facility] LABORATORY Eosinophils Abs 0.2 0.0 - 0.4 [facility] x10(3)/[facility] LABORATORY Basophils % 0.4 % [facility] LABORATORY Basophils Abs 0.0 0.0 - 0.1 [facility] x10(3)/[facility] LABORATORY Immature Gran % 0.80 % [facility] LABORATORY Comment: Immature granulocytes(IG's)percentage an d absolute count will include metamyelocytes, myelocytes, and promyelo cytes. Blood smears from CBCs yielding IG's will be scanned manually for concor dance. If this scan disagrees with the automated IG or if promyelocytes are not ed, a manual differential will be performed. Melisa Gran Abs 0.09 (H) 0.00 - 0.04 x10(3)/[facility] LABORATORY Specimen Anatomical Collection Method Collection Time Receive d Time (Source) Location / / Volume Laterality Blood specimen 08/10/2017 10:28 8 (specimen) AM EST 10:35 AM EST Resulting Agency Comment Spec In Lab Yonathan Smith MD HEMATOLOGY ORDERABLES Performing Organization Address City/State/ZIP Code Phon e Number [place] [id number] HOSPITAL LABORATORY Drive (ABNORMAL) Hemogram (08/10/2017 10:28 AM EST) Analysis Performed At Patho logist Time Signature WBC 11.0 (H) 4.0 - 9.5 [facility] x10(3)/[facility] LABORATORY RBC 3.02 (L) 4.58 - [facility] 5.54 [facility] x10(6)/[facility] LABORATORY Hemoglobin 8.8 (L) 13.7 - [facility] 16.5 gm/dL [facility] LABORATORY Hematocrit 28.1 (L) 40.5 - [facility] 48.5 % [facility] LABORATORY MCV 93.0 82.9 - [facility] 93.1 fL [facility] LABORATORY MCH 29.1 27.5 - [facility] 32.1 pg [facility] LABORATORY MCHC 31.3 (L) 32.0 - [facility] 35.7 gm/dL [facility] LABORATORY Platelets 207 145 - 357 [facility] x10(3)/[facility] LABORATORY RDWSD 55.3 (H) 36.0 - [facility] DAVIS 45.0 [facility] RDWCV 16.4 (H) 11.4 - [place] ZHAOSU 13.8 % [facility] MPV 9.0 7.6 - 12.9 [facility] nRBC % Auto 0.0 % [facility] nRBC Abs Auto 0.000 0.000 - [place] DAVIS 0.000 [facility] x10(3)/[facility] LABORATORY Specimen Anatomical Collection Method Collection Time Receive d Time (Source) Location / / Volume Laterality Blood specimen 08/10/2017 10:28 8 (specimen) AM EST 10:35 AM EST Resulting Agency Comment Spec In Lab Yonathan Smith MD HEMATOLOGY ORDERABLES Performing Organization Address City/State/[place] [address] VS Angiogram/intervention (vascular) (08/10/2017 9:54 AM EST) Anatomical Region Laterality Modality X-Ray Angiography Specimen (Source) Anatomical Location Collection Method / Collectio n Time Received Time / Laterality Volume Narrative 08/16/2017 11:08 AM EST Attestation signed by Trinidad Washington MD at 08/10/2017 1:31 PM Attending Attestation I was the attending physician supervisin g the resident/fellow in the above care and I was present with the resident/fell ow for the entire procedure. I was present during the intraservice ti me as documented by the sedation RN. 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 Left femoral arterial access 2. RLE angiogram 3. Selective catheterization of R planta r artery 4. Balloon angioplasty of R PT with Ster ling 2.5x80 5. Completion RLE angiogram 6. L BUSINESS CONTINUITY CONSULTANT angiogram 7. Mynx closure Surgeons: Hank Washington Anesthesia: Conscious sedation, local 8 cc 1% lidocaine Medications: Fentanyl: 200 mcg ?? Versed: 4 mg Heparin: 9000 units ?? Antibiotics: Scheduled ceftriaxone Protamine: 40 mg Fluoro Time: 33.3 min Contrast: 80 cc EBL: 10cc Indications for the Procedure: 72 y.o. 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 Now 1 Day Post-Op s/p R D1-3 TMA & foot debridement. ?? Plan for arteriogram in IR today of the RLE with intervention as indicated. Findings: - Sheath access in left groin. - Aortogram demonstrated: Widely patent distal aorta, aortic bifurcation, and bilateral iliac systems. - RLE angiogram demonstrated: Widely pat ent R BUSINESS CONTINUITY CONSULTANT with small amount of flow seen in small pseudoaneurysm. Widely patent R profunda femoris. Widely patent R SFA. Widely patent R popliteal. R AT occluded just distal to its origin. R TP trunk widely patent. R peroneal widely patent with runoff to the ankle and collateralization onto the foot. R PT pa tent with mild diffuse disease along its course with runoff to the foot visualize d. - Intervention: Balloon angioplasty of R PT with Eleazar 2.5x80 - Completion angiogram demonstrated: Imp roved flow through the R PT without evidence of dissection or extravasation. Small residual stenosis at the origin of the R plantar artery. R peroneal unch anged. Reconstitution of the R AT and R DP on the foot via collaterals. - L BUSINESS CONTINUITY CONSULTANT angriogram demonstrated: High fe moral bifurcation over the proximal half of the femoral head. L BUSINESS CONTINUITY CONSULTANT access in the distal L BUSINESS CONTINUITY CONSULTANT. - Closure device: Mynx Technical Procedure: ?The pat ient was correctly identified in the pre-procedure holding area. ??After a discussion of th e risks and benefits, operative consent was obtained. ??The patient was brought to the angio suite and placed supine upon the angio table. The patient was prepped and draped in the usual sterile fashion. A time-out was performed by the attending surgeon. Retrograde percutaneous access was obtained in the left common femoral artery via micropuncture technique under ultrasound and flouroscopic guidance after infiltration with local anesthetic. This was then up-sized to a 10 cm 5F sheath over a J-wire. The wire was advanced int o the infra-renal aorta. A 5F omni-flush catheter was advanced into the infrarena l aorta over the wire. Diagnostic aortography was performed with the above findings. ?The wir e and catheter were then used to selectively catheterize the right common iliac arter y. The wire and catheter were advanced down to the common femoral artery. The r ight lower extremity was then imaged in both stationed and bolus-luis fashion. ??Findings are as described above. ?Amplatz wire was advanced and the sheath was exchanged for a 45cm 5F Destination. V18 and [place] a nd QuickCross catheters were used to select the R PT to the level of the plan tar artery. Eleazar 2.5x80 was then used to serially balloon angioplasty the R PT from the foot to the level of the popliteal artery. We did attempt to reca nalize the R AT but were unsuccessful. Completion arteriogram was performed in stationed fashion. Findings are as described above. ?J-wire was advanced and used to exchanged the sheath for a 10cm 5F. A stationed picture of the L CF A was performed as the patient was noted to have a very high bifurcation. Access appeared in the distal R BUSINESS CONTINUITY CONSULTANT. Closure and sheath removal was performed with a Mynx under flouroscopic guidance. Direct pressure was held for 20 minutes. Excell ent hemostasis was achieved. The puncture site was dressed with a dry gau ze and tegaderm. ?Dr. Robel mims, the attending surgeon, was scrubbed and present for the entire procedure. ??Due to the painful nature of the procedure, split doses of fentanyl and Versed were administered by the IR nurse during continuous monitoring of pulse, blood pr essure and oxygen saturation. ?? Closure method: Mynx ?? Complications: None apparent Disposition: Flat for 4 hours CBC now and in 4 hours Hold heparin drip Bedrest Continue antibiotics Procedure Note Trinidad Washington MD - 08/16/2017Form atting of this note might be different from the original. Attestation signed by Sherry Washington MD at 08/10/2017 1:31 PM Attending Attestation I was the attending physician supervisin g the resident/fellow in the above care and I was present with the resident/fell ow for the entire procedure. I was present during the intraservice ti me as documented by the sedation RN. 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 Left femoral arterial access 2. RLE angiogram 3. Selective catheterization of R planta r artery 4. Balloon angioplasty of R PT with Ster ling 2.5x80 5. Completion RLE angiogram 6. L BUSINESS CONTINUITY CONSULTANT angiogram 7. Mynx closure Surgeons: Hank Washington Anesthesia: Conscious sedation, local 8 cc 1% lidocaine Medications: Fentanyl: 200 mcg Versed: 4 mg Heparin: 9000 units Antibiotics: Scheduled ceftriaxone Protamine: 40 mg Fluoro Time: 33.3 min Contrast: 80 cc EBL: 10cc Indications for the Procedure: 72 y.o. 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 Now 1 Day Post-Op s/p R D1-3 TMA & foot debridement. Plan for arteriogram in IR today of the RLE with intervention as indicated. Findings: - Sheath access in left groin. - Aortogram demonstrated: Widely patent distal aorta, aortic bifurcation, and bilateral iliac systems. - RLE angiogram demonstrated: Widely pat ent R BUSINESS CONTINUITY CONSULTANT with small amount of flow seen in small pseudoaneurysm. Widely patent R profunda femoris. Widely patent R SFA. Widely patent R popliteal. R AT occluded just distal to its origin. R TP trunk widely patent. R peroneal widely patent with runoff to the ankle and collateralization onto the foot. R PT pa tent with mild diffuse disease along its course with runoff to the foot visualize d. - Intervention: Balloon angioplasty of R PT with Elaezar 2.5x80 - Completion angiogram demonstrated: Imp roved flow through the R PT without evidence of dissection or extravasation. Small residual stenosis at the origin of the R plantar artery. R peroneal unch anged. Reconstitution of the R AT and R DP on the foot via collaterals. - L BUSINESS CONTINUITY CONSULTANT angriogram demonstrated: High fe moral bifurcation over the proximal half of the femoral head. L BUSINESS CONTINUITY CONSULTANT access in the distal L BUSINESS CONTINUITY CONSULTANT. - Closure device: Mynx Technical Procedure: The patient was correctly identified in the pre-procedure holding area. After a discussion of the risks and benefits, operative consent was obtained. The patient was brought to the angio suite and placed supine upon the angio table. The patient was prepped and draped in the usual sterile fashion. A time-out was performed by the attending surgeon. Retrograde percutaneous access was obtained in the left common femoral artery via micropuncture technique under ultrasound and flouroscopic guidance after infiltration with local anesthetic. This was then up-sized to a 10 cm 5F sheath over a J-wire. The wire was advanced int o the infra-renal aorta. A 5F omni-flush catheter was advanced into the infrarena l aorta over the wire. Diagnostic aortography was performed with the above findings. The wire and catheter were then used to selectively catheterize the right common iliac arter y. The wire and catheter were advanced down to the common femoral artery. The r ight lower extremity was then imaged in both stationed and bolus-luis fashion. Findings are as described above. Amplatz wire was advanced and the sheat h was exchanged for a 45cm 5F Destination. V18 and [place] a nd QuickCross catheters were used to select the R PT to the level of the plan tar artery. Eleazar 2.5x80 was then used to serially balloon angioplasty the R PT from the foot to the level of the popliteal artery. We did attempt to reca nalize the R AT but were unsuccessful. Completion arteriogram was performed in stationed fashion. Findings are as described above. J-wire was advanced and used to exchang ed the sheath for a 10cm 5F. A stationed picture of the L CF A was performed as the patient was noted to have a very high bifurcation. Access appeared in the distal R BUSINESS CONTINUITY CONSULTANT. Closure and sheath removal was performed with a Mynx under flouroscopic guidance. Direct pressure was held for 20 minutes. Excell ent hemostasis was achieved. The puncture site was dressed with a dry gau ze and tegaderm. Dr. Washington, the attending surgeon, w as scrubbed and present for the entire procedure. Due to the painful nature of the procedure, split doses of fentanyl and Versed were administered by the IR nurse during continuous monitoring of pulse, blood pr essure and oxygen saturation. Closure method: Mynx Complications: None apparent Disposition: Flat for 4 hours CBC now and in 4 hours Hold heparin drip Bedrest Continue antibiotics Yonathan Smith MD IMG IR ORDERABLES (ABNORMAL) Differential, Automated (08/10/2017 5:50 AM EST) [facility] Method Time Signature Neutrophils % 80.1 % [facility] LABORATORY Neutr Abs (ANC) 9.01 (H) 1.70 - [facility] 6.10 [facility] x10(3)/[facility] LABORATORY Lymphocytes % 8.8 % [facility] LABORATORY Lymphocytes Abs 1.0 0.9 - 3.2 [facility] x10(3)/[facility] LABORATORY Monocytes % 8.3 % [facility] LABORATORY Monocyte Abs 0.9 0.3 - 0.9 [facility] x10(3)/[facility] LABORATORY Eosinophils % 2.0 % [facility] LABORATORY Eosinophils Abs 0.2 0.0 - 0.4 [facility] x10(3)/[facility] LABORATORY Basophils % 0.4 % [facility] LABORATORY Basophils Abs 0.0 0.0 - 0.1 [facility] x10(3)/[facility] LABORATORY Immature Gran % 0.40 % [facility] LABORATORY Comment: Immature granulocytes(IG's)percentage an d absolute count will include metamyelocytes, myelocytes, and promyelo cytes. Blood smears from CBCs yielding IG's will be scanned manually for concor dance. If this scan disagrees with the automated IG or if promyelocytes are not ed, a manual differential will be performed. Melisa Gran Abs 0.05 (H) 0.00 - 0.04 x10(3)/[facility] LABORATORY Specimen Anatomical Collection Method Collection Time Receive d Time (Source) Location / / Volume Laterality Blood specimen 08/10/2017 5:50 AM 018 5:59 (specimen) EST AM EST Resulting Agency Comment Spec In Lab Yonathan Smith MD HEMATOLOGY ORDERABLES Performing Organization Address City/State/[place] [address] (ABNORMAL) Hemogram (08/10/2017 5:50 AM EST) Analysis Performed At Patho logist Time Signature WBC 11.3 (H) 4.0 - 9.5 [facility] x10(3)/[facility] LABORATORY RBC 3.15 (L) 4.58 - [facility] 5.54 [facility] x10(6)/[facility] LABORATORY Hemoglobin 8.9 (L) 13.7 - [facility] 16.5 gm/dL [facility] LABORATORY Hematocrit 29.0 (L) 40.5 - [facility] 48.5 % [facility] LABORATORY MCV 92.1 82.9 - [facility] 93.1 [facility] LABORATORY MCH 28.3 27.5 - [facility] 32.1 pg [facility] LABORATORY MCHC 30.7 (L) 32.0 - [facility] 35.7 gm/dL [facility] LABORATORY Platelets 231 145 - 357 [facility] x10(3)/[facility] LABORATORY RDWSD 53.9 (H) 36.0 - [facility] SU 45.0 [facility] LABORATORY RDWCV 16.2 (H) 11.4 - [facility] SU 13.8 % [facility] LABORATORY MPV 8.7 7.6 - 12.9 [facility] LABORATORY nRBC % Auto 0.0 % [facility] LABORATORY nRBC Abs Auto 0.000 0.000 - [place] 0.000 [facility] x10(3)/[facility] LABORATORY Specimen Anatomical Collection Method Collection Time Receive d Time (Source) Location / / Volume Laterality Blood specimen 08/10/2017 5:50 AM 018 5:59 (specimen) EST AM EST Resulting Agency Comment Spec In Lab Yonathan Smith MD HEMATOLOGY ORDERABLES Performing Organization Address City/[facility]/[place] [address] (ABNORMAL) Basic Metabolic Panel (non-fasting) (08/10/2017 5:50 AM EST) P athologist Signature Glucose Lvl 135 65 - [address] [facility] mg/dL [facility] LABORATORY Comment: Diabetes: >=200 mg/dL plus symp toms BUN 17 10 - 20 mg/dL [facility] LABORATORY Creatinine 1.05 0.80 - 1.50 mg/dL [facility] LABORATORY Sodium 144 135 - 145 mmol/L [facility] LABORATORY Potassium 4.6 3.5 - 5.0 mmol/L [facility] LABORATORY Comment: Please note: ??Patients with WBC >100,00 0 may have falsely elevated Potassium levels. ??For accurate Potassium quantif ication in these patients send serum separator tube (gold top) for subsequent determinations. ??Contact the Clinical Chemistry Laboratory if there are any qu estions. Chloride 104 98 - 107 mmol/L [facility] LABORATORY CO2 27 22 - 31 mmol/L [facility] LABORATORY Anion Gap 13 5 - 15 mmol/L [facility] LABORATORY Calcium 8.1 (L) 8.5 - 10.5 mg/dL [facility] LABORATORY Estimated GFR >60 >=60 [facility] LABORATORY Comment: The reported eGFR should be multiplied b y 1.2 for patients. The MDRD is not an appropriate measure o f renal function for patients with body mass extremes or in patients with acute kidney failure. http://[employer]/DHnkdep http://[employer]/DHMCnkf Specimen Anatomical Collection Method Collection Time Receive d Time (Source) Location / / Volume Laterality Blood specimen 08/10/2017 5:50 AM 018 5:59 (specimen) EST AM EST Resulting Agency Comment Spec In Lab Yonathan Smith MD CHEMISTRY ORDERABLES Performing Organization Address City/State/[place] [address] (ABNORMAL) Prothrombin Time (08/10/2017 5:50 AM EST) athologist Signature PT 16.8 (H) 11.8 - 14.0 [facility] LABORATORY INR 1.4 (H) 0.9 - 1.1 [facility] LABORATORY Comment: An INR <2.0 [...] Location / / Volume Laterality Blood specimen 08/10/2017 5:50 AM 018 5:59 (specimen) EST AM EST Resulting Agency Comment Spec In Lab Yonathan Smith MD HEMATOLOGY ORDERABLES Performing Organization Address City/State/[place] [address] (ABNORMAL) POCT Glucose (08/10/2017 4:01 AM EST) athologist Signature POC Glucose 206 (H) 65 - 199 [facility] mg/dL [facility] LAB[facility] Comment: Supplemental ranges: <140 mg/dL before meals <180 mg/dL all other times of the day Specimen Anatomical Collection Method Collection Time Receive d Time (Source) Location / / Volume Laterality Blood specimen 08/10/2017 4:01 AM 018 4:01 (specimen) EST AM EST Yonathan Smith MD POINT OF CARE TEST ORDERABLE S Performing Organization Address City/State/[place] [address] POCT Glucose (08/10/2017 2:01 AM EST) athologist Signature POC Glucose 188 65 - 199 [facility] mg/dL [facility] LABORATORY Comment: Supplemental ranges: <140 mg/dL before meals <180 mg/dL all other times of the day Specimen Anatomical Collection Method Collection Time Receive d Time (Source) Location / / Volume Laterality Blood specimen 08/10/2017 2:01 AM 018 2:01 (specimen) EST AM EST Yonathan Smith MD POINT OF CARE TEST ORDERABLE S Performing Organization Address City/[facility] Health/[place] [address] (ABNORMAL) POCT Glucose (08/09/2017 11:42 PM EST) athologist Signature POC Glucose 283 (H) 65 - 199 [facility] mg[facility]dL [facility] Comment: Supplemental ranges: <140 mg/dL before meals <180 mg/dL all other times of the day Specimen Anatomical Collection Method Collection Time Receive d Time (Source) Location / / Volume Laterality Blood specimen 08/09/2017 11:42 8 (specimen) PM EST 11:42 PM EST Yonathan Smith MD POINT OF CARE TEST ORDERABLE S Performing Organization Address City/[facility]/[place] [address] POCT Glucose (08/09/2017 8:55 PM EST) athologist Signature POC Glucose 182 65 - 199 [facility] mg/dL [facility] Comment: Supplemental ranges: <140 mg/dL before meals <180 mg/dL all other times of the day Specimen Anatomical Collection Method Collection Time Receive d Time (Source) Location / / Volume Laterality Blood specimen 08/09/2017 8:55 PM 018 8:55 (specimen) EST PM EST Yonathan Smith MD POINT OF CARE TEST ORDERABLE S Performing Organization Address City/[facility]/[place] [address] (ABNORMAL) APTT (08/09/2017 6:42 PM EST) athologist Signature PTT 90 (H) 25 - 35 sec [facility] Comment: The recommended therapeutic range for fu ll dose, unfractionated heparin at [facility] is 80 ? 114 seconds. The use of the anti-Xa (heparin) level rather than the PTT is recommended for monitoring anticoagul ation intensity in critically ill patients receiving unfractionated hepari n by continuous IV infusion. Specimen Anatomical Collection Method Collection Time Receive d Time (Source) Location / / Volume Laterality Blood specimen 08/09/2017 6:42 PM 018 6:54 (specimen) EST PM EST Resulting Agency Comment Spec In Lab Yonathan Smith MD HEMATOLOGY ORDERABLES Performing Organization Address City/[facility]/ZIP Code Phon e Number [address] POCT Glucose (08/09/2017 4:41 PM EST) athologist Signature POC Glucose 195 65 - 199 [facility] mg/dL [facility] Comment: Supplemental ranges: <140 mg/dL before meals <180 mg/dL all other times of the day Specimen Anatomical Collection Method Collection Time Receive d Time (Source) Location / / Volume Laterality Blood specimen 08/09/2017 4:41 PM 018 4:41 (specimen) EST PM EST Yonathan Smith MD POINT OF CARE TEST ORDERABLE S Performing Organization Address City/[facility]/ZIP Code Phon e Number [address] POCT Glucose (08/09/2017 12:29 PM EST) athologist Signature POC Glucose 140 65 - 199 [place] [facility] mg/dL [facility] Comment: Supplemental ranges: <140 mg/dL before meals <180 mg/dL all other times of the day Specimen Anatomical Collection Method Collection Time Receive d Time (Source) Location / / Volume Laterality Blood specimen 08/09/2017 12:29 8 (specimen) PM EST 12:29 PM EST Yonathan Smith MD POINT OF CARE TEST ORDERABLE S Performing Organization Address City/[facility]/ZIP Code Phon e Number [address] POCT Glucose (08/09/2017 9:59 AM EST) athologist Signature POC Glucose 135 65 - 199 [facility] mg/dL [facility] Comment: Supplemental ranges: <140 mg/dL before meals <180 mg/dL all other times of the day Specimen Anatomical Collection Method Collection Time Receive d Time (Source) Location / / Volume Laterality Blood specimen 08/09/2017 9:59 AM 018 9:59 (specimen) EST AM EST Yonathan Smith MD POINT OF CARE TEST ORDERABLE S Performing Organization Address [place]/[facility]/ZIP Code Phon e Number [address] Specimen to Pathology (08/09/2017 8:41 AM EST) Specimen Anatomical Collection Method Collection Time Receive d Time (Source) Location / / Volume Laterality AP Specimen 08/09/2017 8:41 AM 8 8:41 EST AM EST Narrative [facility] - 08/09/2017 8:41 AM EST Specimen requisition ordered. ??Separate Pathology report to follow Yonathan Smith MD PATHOLOGY/CYTOLOGY ORDERABLE S Performing Organization Address City/[facility]/[place] [address] Surgical Pathology Report (08/09/2017 8:40 AM EST) Component Value Ref Test Analysis Performed At [facility] Range Method Time Signature Surgical [id number] ? Location: [facility]; [facility] [place]; A [facility] Report The signing pathologist has (i) examined the relevant preparation(s) for the [facility] specimen(s) and (ii) rendered or confirmed the diagnosis(es) . HOSPITAL LABORATORY . 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 ?Viable proximal resection margins. Electronically signed by: ??Henrique Saravia MD Verified: ??08/13/2017 ?Pathologist Performed at: ??-[facility] Dept. of Pathology, [place], [place] CLINICAL INFORMATION Specimen Submitted: A - Right toes 1,2,3 Clinical History: Right infected toes 1, 2, 3. Clinical Diagnosis: Same. SPECIMEN PROCESSING A - ??Labeled/Fixative: Right toes 1, 2, 3, fresh. Quantity/Size: Single, 7.8 x 5.6 x 3.0 cm. Tissue Description: Partial right forefoot amputation specimen including digits 1, 2, and 3. Each digit is smo othly resected across each proximal phalanx. The skin demonstrates patchy erythem a, edema, and erosion over approximately 30 percent of digit 1, 20 percent of digi t 2, and 15 percent of digit 3. The marginal tissue is grossly viable. The nails a re thick, white, and opaque. The middle phalanx of digit 2 and the distal phalanx of digit 1 are minimally hyperemic, none of the phalanges are grossly softened. Sections/Processing: Blocks submitted for decalcification: ??(1-9) ?. ??A longitudinal full length section of each digit is submitted from proximal to distal. (1-3) digit 1; (4-6) digit 2; (7-9) digit 3. (R9) ??arcelia Specimen (Source) Anatomical Collection Method Collection Time Re ceived Time Location / / Volume Laterality 08/09/2017 8:40 AM EST Yonathan Smith MD PATHOLOGY/CYTOLOGY ORDERABLE S Performing Organization Address City/State/[place] [address] Anaerobic Culture (08/09/2017 8:30 AM EST) [facility] Method Time Signature Anaerobic No anaerobic [facility] Culture organisms [facility] LABORATORY Specimen Anatomical Collection Method Collection Time Receive d Time (Source) Location / / Volume Laterality Specimen from STRUCTURE OF RIGHT 08/09/2017 8:30 AM 9:10 abscess FOOT / Unknown EST AM EST (specimen) Comment: SWAB RIGHT GREAT TOE ABSCESS FO R AEROBIC AND ANAEROBIC CULTURES. Resulting Agency Comment Spec In Lab Yonathan Smith MD MICROBIOLOGY - GENERAL ORDER [place] Performing Organization Address City/State/[place] [address] (ABNORMAL) Abscess/Wound Aspirate Culture (08/09/2017 8:30 AM EST) [facility] Method Time Signature Abscess/Wound Moderate mixed [place] Aspirate bacterial [facility] Culture morphotypes [facility] normal LABORATORY cutaneous leroy (A) Gram Stain Rare White Blood Cells [place] Few Gram Positive Cocci in pairs [facility] (A) [facility] Organism Gram Positive [place] Cocci in pairs GH[facility] () [facility] Specimen Anatomical Collection Method Collection Time Receive d Time (Source) Location / / Volume Laterality Specimen from STRUCTURE OF RIGHT 08/09/2017 8:30 AM 9:10 abscess FOOT / Unknown EST AM EST (specimen) Comment: SWAB RIGHT GREAT TOE ABSCESS FO R AEROBIC AND ANAEROBIC CULTURES. Resulting Agency Comment Spec In Lab Yonathan Smith MD MICROBIOLOGY - GENERAL ORDER ROBSON Performing Organization Address City/[facility]/ZIP Code Phon e Number [address] POCT Glucose (08/09/2017 4:28 AM EST) P athologist Signature POC Glucose 128 65 - [address] [facility] mg/dL [facility] Comment: Supplemental ranges: <140 mg/dL before meals <180 mg/dL all other times of the day Specimen Anatomical Collection Method Collection Time Receive d Time (Source) Location / / Volume Laterality Blood specimen 08/09/2017 4:28 AM 018 4:28 (specimen) EST AM EST Yonathan Smith MD POINT OF CARE TEST ORDERABLE S Performing Organization Address City/[facility]/ZIP Code Phon e Number [address] ABORH Recheck Status (08/09/2017 1:10 AM EST) [facility] gist Method Time Signature ABORH Type Completed [facility] LABORATORY Specimen Anatomical Collection Method Collection Time Receive d Time (Source) Location / / Volume Laterality Blood specimen 08/09/2017 1:10 AM 01/15/2 018 1:35 (specimen) EST AM EST Resulting Agency Comment Spec In Lab Yonathan Smith MD BLOOD BANK ORDERABLES Performing Organization Address City/State/ZIP Code Phon e Number [address] Antibody screen (08/09/2017 1:10 AM EST) Patholo gist Method Time Signature Ab Screen Negative [facility] LABORATORY Expires at 08/12/2017 [facility] [id number] on: [facility] LABORATORY Specimen Anatomical Collection Method Collection Time Receive d Time (Source) Location / / Volume Laterality Blood specimen 08/09/2017 1:10 AM 018 1:35 (specimen) EST AM EST Resulting Agency Comment Spec In Lab Yonathan Smith MD BLOOD BANK ORDERABLES Performing Organization Address City/[facility]/[place] [address] ABO/Rh Typing (08/09/2017 1:10 AM EST) P athologist Signature ABORh Type O Pos [facility] LABORATORY Specimen Anatomical Collection Method Collection Time Receive d Time (Source) Location / / Volume Laterality Blood specimen 08/09/2017 1:10 AM 018 1:35 (specimen) EST AM EST Resulting Agency Comment Spec In Lab Yonathan Smith MD BLOOD BANK ORDERABLES Performing Organization Address City/[facility]/[place] [address] (ABNORMAL) APTT (08/09/2017 1:10 AM EST) P athologist Signature PTT 86 (H) 25 - 35 sec [facility] Comment: The recommended therapeutic range for fu ll dose, unfractionated heparin at [facility] is 80 ? 114 seconds. The use of the anti-Xa (heparin) level rather than the PTT is recommended for monitoring anticoagul ation intensity in critically ill patients receiving unfractionated hepari n by continuous IV infusion. Specimen Anatomical Collection Method Collection Time Receive d Time (Source) Location / / Volume Laterality Blood specimen 08/09/2017 1:10 AM 01/15/2 018 1:19 (specimen) EST AM EST Resulting Agency Comment Spec In Lab Yonathan Smith MD HEMATOLOGY ORDERABLES Performing Organization Address City/State/ZIP Code [place] [address] (ABNORMAL) Differential, Automated (08/09/2017 1:10 AM EST) [facility] Method Time Signature Neutrophils % 76.2 % [facility]ORATORY Neutr Abs (ANC) 8.59 (H) 1.70 - [facility] 6.10 [facility] x10(3)/[facility] LABORATORY Lymphocytes % 11.0 % [facility] LABORATORY Lymphocytes Abs 1.2 0.9 - 3.2 [facility] x10(3)/[facility] LABORATORY Monocytes % 8.4 % [facility] LABORATORY Monocyte Abs 1.0 (H) 0.3 - 0.9 [facility] x10(3)/[facility] LABORATORY Eosinophils % 3.5 % [facility] LABORATORY Eosinophils Abs 0.4 0.0 - 0.4 [facility] x10(3)/[facility] LABORATORY Basophils % 0.5 % [facility]ORATORY Basophils Abs 0.1 0.0 - 0.1 [facility] x10(3)/[facility] LABORATORY Immature Gran % 0.40 % [facility]ORATORY Comment: Immature granulocytes(IG's)percentage an d absolute count will include metamyelocytes, myelocytes, and promyelo cytes. Blood smears from CBCs yielding IG's will be scanned manually for concor dance. If this scan disagrees with the automated IG or if promyelocytes are not ed, a manual differential will be performed. Melisa Gran Abs 0.05 (H) 0.00 - 0.04 x10(3)/[facility] LABORATORY Specimen Anatomical Collection Method Collection Time Receive d Time (Source) Location / / Volume Laterality Blood specimen 08/09/2017 1:10 AM 018 1:19 (specimen) EST AM EST Resulting Agency Comment Spec In Lab Yonathan Smith MD HEMATOLOGY ORDERABLES Performing Organization Address City/State/[place] [address] (ABNORMAL) Hemogram (08/09/2017 1:10 AM EST) Analysis Performed At Patho logist Time Signature WBC 11.3 (H) 4.0 - 9.5 [facility] x10(3)/[facility] LABORATORY RBC 3.47 (L) 4.58 - [place] [facility] 5.54 [facility] x10(6)/[facility] LABORATORY Hemoglobin 10.0 (L) 13.7 - [facility] 16.5 gm/dL [facility] Hematocrit 31.9 (L) 40.5 - [facility] 48.5 % [facility] LABORATORY MCV 91.9 82.9 - [facility] 93.1 [facility] LABORATORY MCH 28.8 27.5 - [facility] 32.1 pg [facility] MCHC 31.3 (L) 32.0 - [facility] 35.7 gm/dL [facility] Platelets 234 145 - 357 [facility] x10(3)/[facility] LABORATORY RDWSD 54.0 (H) 36.0 - [facility] 45.0 [facility] LABORATORY RDWCV 16.2 (H) 11.4 - [facility] 13.8 % [facility] LABORATORY MPV 8.7 7.6 - 12.9 [facility] LABORATORY nRBC % Auto 0.0 % [facility]ORATORY nRBC Abs Auto 0.000 0.000 - [facility] 0.000 [facility] x10(3)/[facility] LABORATORY Specimen Anatomical Collection Method Collection Time Receive d Time (Source) Location / / Volume Laterality Blood specimen 08/09/2017 1:10 AM 018 1:19 (specimen) EST AM EST Resulting Agency Comment Spec In Lab Yonathan Smith MD HEMATOLOGY ORDERABLES Performing Organization Address City/State/ZIP Code Phon e Number [place] [id number] (ABNORMAL) Prothrombin Time (08/09/2017 1:10 AM EST) P athologist Signature PT 16.0 (H) 11.8 - 14.0 [facility] LABORATORY INR 1.3 (H) 0.9 - 1.1 [facility] LABORATORY Comment: An INR <2.0 [...] Location / / Volume Laterality Blood specimen 08/09/2017 1:10 AM 018 1:19 (specimen) EST AM EST Resulting Agency Comment Spec In Lab Yonathan Smith MD HEMATOLOGY ORDERABLES Performing Organization Address City/State/[place] [address] (ABNORMAL) Basic Metabolic Panel (non-fasting) (08/09/2017 1:10 AM EST) athologist Signature Glucose Lvl 108 65 - [address] [facility] mg/dL [facility] Comment: Diabetes: >=200 mg/dL plus symp toms BUN 34 (H) 10 - 20 mg/dL [facility] LABORATORY Creatinine 1.54 (H) 0.80 - 1.50 mg/dL [facility] LABORATORY Sodium 138 135 - 145 mmol/L [facility] LABORATORY Potassium 4.5 3.5 - 5.0 mmol/L [facility] LABORATORY Comment: Please note: ??Patients with WBC >100,00 0 may have falsely elevated Potassium levels. ??For accurate Potassium quantif ication in these patients send serum separator tube (gold top) for subsequent determinations. ??Contact the Clinical Chemistry Laboratory if there are any qu estions. Chloride 96 (L) 98 - 107 mmol/L [facility] LABORATORY CO2 29 22 - 31 mmol/L [facility] Anion Gap 13 5 - 15 mmol/L [facility]ORATORY Calcium 8.3 (L) 8.5 - 10.5 mg/dL [facility] LABORATORY Estimated GFR 45 (L) >=60 [facility] Comment: The reported eGFR should be multiplied b y 1.2 for patients. The MDRD is not an appropriate measure o f renal function for patients with body mass extremes or in patients with acute kidney failure. http://All[employer].com/DHnkdep http://All[employer].com/DHMCnkf Specimen Anatomical Collection Method Collection Time Receive d Time (Source) Location / / Volume Laterality Blood specimen 08/09/2017 1:10 AM 018 1:19 (specimen) EST AM EST Resulting Agency Comment Spec In Lab Yonathan Smith MD CHEMISTRY ORDERABLES Performing Organization Address City/[facility]/ZIP Code Phon e Number [address] POCT Glucose (08/09/2017 12:05 AM EST) athologist Signature POC Glucose 128 65 - 199 [facility] mg/dL [facility] Comment: Supplemental ranges: <140 mg/dL before meals <180 mg/dL all other times of the day Specimen Anatomical Collection Method Collection Time Receive d Time (Source) Location / / Volume Laterality Blood specimen 08/09/2017 12:05 8 (specimen) AM EST 12:05 AM EST Yonathan Smith MD POINT OF CARE TEST ORDERABLE S Performing Organization Address City/[facility]/[place] [address] (ABNORMAL) POCT Glucose (08/08/2017 7:36 PM EST) P athologist Signature POC Glucose 215 (H) 65 - 199 [facility] mg/dL [facility] Comment: Supplemental ranges: <140 mg/dL before meals <180 mg/dL all other times of the day Specimen Anatomical Collection Method Collection Time Receive d Time (Source) Location / / Volume Laterality Blood specimen 08/08/2017 7:36 PM 018 7:36 (specimen) EST PM EST Yonathan Smith MD POINT OF CARE TEST ORDERABLE S Performing Organization Address City/State/[place] [address] (ABNORMAL) POCT Glucose (08/08/2017 6:23 PM EST) athologist Signature POC Glucose 216 (H) 65 - 199 [facility] mg/dL [facility] Comment: Supplemental ranges: <140 mg/dL before meals <180 mg/dL all other times of the day Specimen Anatomical Collection Method Collection Time Receive d Time (Source) Location / / Volume Laterality Blood specimen 08/08/2017 6:23 PM 018 6:23 (specimen) EST PM EST Yonathan Smith MD POINT OF CARE TEST ORDERABLE S Performing Organization Address City/[facility]/ZIP Code [facility] [place] [address] (ABNORMAL) APTT (08/08/2017 6:00 PM EST) athologist Signature PTT 97 (H) 25 - 35 sec [facility] Comment: The recommended therapeutic range for fu ll dose, unfractionated heparin at [facility] is 80 ? 114 seconds. The use of the anti-Xa (heparin) level rather than the PTT is recommended for monitoring anticoagul ation intensity in critically ill patients receiving unfractionated hepari n by continuous IV infusion. Specimen Anatomical Collection Method Collection Time Receive d Time (Source) Location / / Volume Laterality Blood specimen 08/08/2017 6:00 PM 018 6:14 (specimen) EST PM EST Resulting Agency Comment Spec In Lab Yonathan Smith MD HEMATOLOGY ORDERABLES Performing Organization Address City/State/[place] [address] POCT Glucose (08/08/2017 4:42 PM EST) athologist Signature POC Glucose 78 65 - 199 [facility] mg/dL [facility]OR[facility] Comment: Supplemental ranges: <140 mg/dL before meals <180 mg/dL all other times of the day Specimen Anatomical Collection Method Collection Time Receive d Time (Source) Location / / Volume Laterality Blood specimen 08/08/2017 4:42 PM 018 4:42 (specimen) EST PM EST Yonathan Smith MD POINT OF CARE TEST ORDERABLE S Performing Organization Address City/State/ZIP Code Phon e Number [address] (ABNORMAL) POCT Glucose (08/08/2017 4:01 PM EST) athologist Signature POC Glucose 58 (L) 65 - 199 [facility] mg/dL [facility] Comment: Supplemental ranges: <140 mg/dL before meals <180 mg/dL all other times of the day Specimen Anatomical Collection Method Collection Time Receive d Time (Source) Location / / Volume Laterality Blood specimen 08/08/2017 4:01 PM 018 4:01 (specimen) EST PM EST Yonathan Smith MD POINT OF CARE TEST ORDERABLE S Performing Organization Address City/[facility]/[place] [address] POCT Glucose (08/08/2017 11:51 AM EST) athologist Signature POC Glucose 90 65 - 199 [facility] mg/dL [facility] Comment: Supplemental ranges: <140 mg/dL before meals <180 mg/dL all other times of the day Specimen Anatomical Collection Method Collection Time Receive d Time (Source) Location / / Volume Laterality Blood specimen 08/08/2017 11:51 8 (specimen) AM EST 11:51 AM EST Yonathan Smith MD POINT OF CARE TEST ORDERABLE S Performing Organization Address City/State/[place] [address] (ABNORMAL) APTT (08/08/2017 10:27 AM EST) athologist Signature PTT 64 (H) 25 - 35 sec [facility] Comment: The recommended therapeutic range for fu ll dose, unfractionated heparin at [facility] is 80 ? 114 seconds. The use of the anti-Xa (heparin) level rather than the PTT is recommended for monitoring anticoagul ation intensity in critically ill patients receiving unfractionated hepari n by continuous IV infusion. Specimen Anatomical Collection Method Collection Time Receive d Time (Source) Location / / Volume Laterality Blood specimen 08/08/2017 10:27 201 8 (specimen) AM EST 10:34 AM EST Resulting Agency Comment Spec In Lab Yonathan Smith MD HEMATOLOGY ORDERABLES Performing Organization Address City/State/[place] [address] POCT Glucose (08/08/2017 8:02 AM EST) athologist Signature POC Glucose 178 65 - 199 [facility] mg/dL [facility] Comment: Supplemental ranges: <140 mg/dL before meals <180 mg/dL all other times of the day Specimen Anatomical Collection Method Collection Time Receive d Time (Source) Location / / Volume Laterality Blood specimen 08/08/2017 8:02 AM 018 8:02 (specimen) EST AM EST Yonathan Smith MD POINT OF CARE TEST ORDERABLE S Performing Organization Address City/[facility]/[place] [address] (ABNORMAL) APTT (08/08/2017 4:51 AM EST) athologist Signature PTT >160 25 - 35 [facility] (Critical) sec [facility] Comment: Called by: HOWARD, Read back by: Melba Jaramillo, Date/Time:08/08/17 05:43. The recommended therapeutic range for fu ll dose, unfractionated heparin at [facility] is 80 ? 114 seconds. The use of the anti-Xa (heparin) level rather than the PTT is recommended for monitoring anticoagul ation intensity in critically ill patients receiving unfractionated hepari n by continuous IV infusion. Specimen Anatomical Collection Method Collection Time Receive d Time (Source) Location / / Volume Laterality Blood specimen Venous Draw / 08/08/2017 4:51 AM 2017 5:14 (specimen) Unknown EST AM EST Resulting Agency Comment Spec In Lab Yonathan Smith MD HEMATOLOGY ORDERABLES Performing Organization Address City/[facility]/[place] [address] (ABNORMAL) Differential, Automated (08/08/2017 4:51 AM EST) Patholo gist Method Time Signature Neutrophils % 77.9 % [facility] Neutr Abs (ANC) 8.17 (H) 1.70 - [facility] 6.10 [facility] x10(3)/[facility] LABORATORY Lymphocytes % 10.3 % [facility] Lymphocytes Abs 1.1 0.9 - 3.2 [facility] x10(3)/[facility] LABORATORY Monocytes % 7.0 % [facility] Monocyte Abs 0.7 0.3 - 0.9 [facility] x10(3)/[facility] LABORATORY Eosinophils % 3.6 % [facility] Eosinophils Abs 0.4 0.0 - 0.4 [facility] x10(3)/[facility] LABORATORY Basophils % 0.5 % [facility] Basophils Abs 0.0 0.0 - 0.1 [facility] x10(3)/[facility] LABORATORY Immature Gran % 0.70 % [facility] Comment: Immature granulocytes(IG's)percentage an d absolute count will include metamyelocytes, myelocytes, and promyelo cytes. Blood smears from CBCs yielding IG's will be scanned manually for concor dance. If this scan disagrees with the automated IG or if promyelocytes are not ed, a manual differential will be performed. Melisa Gran Abs 0.07 (H) 0.00 - 0.04 x10(3)/[facility] LABORATORY Specimen Anatomical Collection Method Collection Time Receive d Time (Source) Location / / Volume Laterality Blood specimen 08/08/2017 4:51 AM 018 5:14 (specimen) EST AM EST Resulting Agency Comment Spec In Lab Yonathan Smith MD HEMATOLOGY ORDERABLES Performing Organization Address City/State/[place] [address] (ABNORMAL) Hemogram (08/08/2017 4:51 AM EST) Analysis Performed At Patho logist Time Signature WBC 10.5 (H) 4.0 - 9.5 [facility] x10(3)/[facility] LABORATORY RBC 3.27 (L) 4.58 - [facility] 5.54 [facility] x10(6)/[facility] LABORATORY Hemoglobin 9.3 (L) 13.7 - [facility] 16.5 gm/dL [facility] Hematocrit 30.3 (L) 40.5 - [facility] 48.5 % [facility] MCV 92.7 82.9 - [facility] 93.1 [facility] LABORATORY MCH 28.4 27.5 - [facility] 32.1 pg [facility] MCHC 30.7 (L) 32.0 - [facility] 35.7 gm/dL [facility] Platelets 252 145 - 357 [facility] x10(3)/[facility] LABORATORY RDWSD 54.6 (H) 36.0 - [facility] 45.0 [facility] LABORATORY RDWCV 16.2 (H) 11.4 - [facility] 13.8 % [facility] MPV 9.1 7.6 - 12.9 [facility] LABORATORY nRBC % Auto 0.0 % [facility] nRBC Abs Auto 0.000 0.000 - [facility] x10(3)/[facility] LABORATORY Specimen Anatomical Collection Method Collection Time Receive d Time (Source) Location / / Volume Laterality Blood specimen 08/08/2017 4:51 AM 018 5:14 (specimen) EST AM EST Resulting Agency Comment Spec In Lab Yonathan Smith MD HEMATOLOGY ORDERABLES Performing Organization Address City/State/[place] [address] (ABNORMAL) Prothrombin Time (08/08/2017 4:51 AM EST) P athologist Signature PT 18.1 (H) 11.8 - 14.0 [facility] LABORATORY INR 1.5 (H) 0.9 - 1.1 [facility] Comment: An INR <2.0 [...] Location / / Volume Laterality Blood specimen 08/08/2017 4:51 AM 018 5:14 (specimen) EST AM EST Resulting Agency Comment Spec In Lab Yonathan Smith MD HEMATOLOGY ORDERABLES Performing Organization Address City/State/[place] [address] (ABNORMAL) Basic Metabolic Panel (non-fasting) (08/08/2017 4:51 AM EST) P athologist Signature Glucose Lvl 229 (H) 65 - [address] [facility] mg/dL [facility] Comment: Diabetes: >=200 mg/dL plus symp toms BUN 35 (H) 10 - 20 mg/dL [facility] Creatinine 1.57 (H) 0.80 - 1.50 mg/dL [facility] LABORATORY Sodium 136 135 - 145 mmol/L [facility] Potassium 4.5 3.5 - 5.0 mmol/L [facility] Comment: Please note: ??Patients with WBC >100,00 0 may have falsely elevated Potassium levels. ??For accurate Potassium quantif ication in these patients send serum separator tube (gold top) for subsequent determinations. ??Contact the Clinical Chemistry Laboratory if there are any qu estions. Chloride 94 (L) 98 - 107 mmol/L [facility] CO2 25 22 - 31 mmol/L [facility] Anion Gap 17 (H) 5 - 15 mmol/L [facility] Calcium 7.9 (L) 8.5 - 10.5 mg/dL [facility] Estimated GFR 44 (L) >=60 [facility] Comment: The reported eGFR should be multiplied b y 1.2 for patients. The MDRD is not an appropriate measure o f renal function for patients with body mass extremes or in patients with acute kidney failure. http://[employer]/DHnkdep http://[employer]/DHMCnkf Specimen Anatomical Collection Method Collection Time Receive d Time (Source) Location / / Volume Laterality Blood specimen 08/08/2017 4:51 AM 018 5:14 (specimen) EST AM EST Resulting Agency Comment Spec In Lab Yonathan Smith MD CHEMISTRY ORDERABLES Performing Organization Address City/State/ZIP Code Phon e Number [address] POCT Glucose (08/08/2017 4:20 AM EST) athologist Signature POC Glucose 193 65 - 199 [facility] mg/dL [facility] Comment: Supplemental ranges: <140 mg/dL before meals <180 mg/dL all other times of the day Specimen Anatomical Collection Method Collection Time Receive d Time (Source) Location / / Volume Laterality Blood specimen 08/08/2017 4:20 AM 018 4:20 (specimen) EST AM EST Yonathan Smith MD POINT OF CARE TEST ORDERABLE S Performing Organization Address City/[facility]/[place] [address] POCT Glucose (08/07/2017 11:11 PM EST) athologist Signature POC Glucose 124 65 - 199 [facility] mg/dL [facility] Comment: Supplemental ranges: <140 mg/dL before meals <180 mg/dL all other times of the day Specimen Anatomical Collection Method Collection Time Receive d Time (Source) Location / / Volume Laterality Blood specimen 08/07/2017 11:11 8 (specimen) PM EST 11:11 PM EST Yonathan Smith MD POINT OF CARE TEST ORDERABLE S Performing Organization Address City/[facility]/ZIP Code Phon e Number [address] (ABNORMAL) APTT (08/07/2017 10:18 PM EST) athologist Signature PTT 114 (H) 25 - 35 sec [facility] Comment: The recommended therapeutic range for fu ll dose, unfractionated heparin at [facility] is 80 ? 114 seconds. The use of the anti-Xa (heparin) level rather than the PTT is recommended for monitoring anticoagul ation intensity in critically ill patients receiving unfractionated hepari n by continuous IV infusion. Specimen Anatomical Collection Method Collection Time Receive d Time (Source) Location / / Volume Laterality Blood specimen 08/07/2017 10:18 8 (specimen) PM EST 10:26 PM EST Resulting Agency Comment Spec In Lab Yonathan Smith MD HEMATOLOGY ORDERABLES Performing Organization Address City/[facility] Phon e Number [address] POCT Glucose (08/07/2017 8:10 PM EST) athologist Signature POC Glucose 140 65 - 199 [facility] mg/dL [facility] Comment: Supplemental ranges: <140 mg/dL before meals <180 mg/dL all other times of the day Specimen Anatomical Collection Method Collection Time Receive d Time (Source) Location / / Volume Laterality Blood specimen 08/07/2017 8:10 PM 018 8:10 (specimen) EST PM EST Yonathan Smith MD POINT OF CARE TEST ORDERABLE S Performing Organization Address City/[facility] Code Phon e Number [address] POCT Glucose (08/07/2017 5:27 PM EST) athologist Signature POC Glucose 187 65 - 199 [facility]dL [facility] Comment: Supplemental ranges: <140 mg/dL before meals <180 mg/dL all other times of the day Specimen Anatomical Collection Method Collection Time Receive d Time (Source) Location / / Volume Laterality Blood specimen 08/07/2017 5:27 PM 018 5:27 (specimen) EST PM EST Yonathan Smith MD POINT OF CARE TEST ORDERABLE S Performing Organization Address City/[facility]/ZIP Code Phon e Number [address] POCT Glucose (08/07/2017 3:29 PM EST) athologist Signature POC Glucose 86 65 - 199 [facility] mg/dL [facility] Comment: Supplemental ranges: <140 mg/dL before meals <180 mg/dL all other times of the day Specimen Anatomical Collection Method Collection Time Receive d Time (Source) Location / / Volume Laterality Blood specimen 08/07/2017 3:29 PM 018 3:29 (specimen) EST PM EST Yonathan Smith MD POINT OF CARE TEST ORDERABLE S Performing Organization Address City/[facility] [place] [address] (ABNORMAL) APTT (08/07/2017 2:50 PM EST) athologist Signature PTT 60 (H) 25 - 35 sec [facility] Comment: The recommended therapeutic range for fu ll dose, unfractionated heparin at [facility] is 80 ? 114 seconds. The use of the anti-Xa (heparin) level rather than the PTT is recommended for monitoring anticoagul ation intensity in critically ill patients receiving unfractionated hepari n by continuous IV infusion. Specimen Anatomical Collection Method Collection Time Receive d Time (Source) Location / / Volume Laterality Blood specimen 08/07/2017 2:50 PM 018 2:55 (specimen) EST PM EST Resulting Agency Comment Spec In Lab Yonathan Smith MD HEMATOLOGY ORDERABLES Performing Organization Address City/[facility]/ZIP [facility] [place] [address] (ABNORMAL) POCT Glucose (08/07/2017 2:23 PM EST) athologist Signature POC Glucose 55 (L) 65 - 199 [facility] mg/dL [facility] Comment: Supplemental ranges: <140 mg/dL before meals <180 mg/dL all other times of the day Specimen Anatomical Collection Method Collection Time Receive d Time (Source) Location / / Volume Laterality Blood specimen 08/07/2017 2:23 PM 018 2:23 (specimen) EST PM EST Yonathan Smith MD POINT OF CARE TEST ORDERABLE S Performing Organization Address City/[facility]/[place] [address] [facility] LAB[address]ORY Drive POCT Glucose (08/07/2017 12:08 PM EST) P athologist Signature POC Glucose 77 65 - [address] [facility] mg/dL [facility] Comment: Supplemental ranges: <140 mg/dL before meals <180 mg/dL all other times of the day Specimen Anatomical Collection Method Collection Time Receive d Time (Source) Location / / Volume Laterality Blood specimen 08/07/2017 12:08 8 (specimen) PM EST 12:08 PM EST Yonathan Smith MD POINT OF CARE TEST ORDERABLE S Performing Organization Address City/State/ZIP Code Phon e Number [place] [id number] [facility] LABORATORY Drive (ABNORMAL) Differential, Automated (08/07/2017 7:30 AM EST) Patholo gist Method Time Signature Neutrophils % 73.8 % [facility] Neutr Abs (ANC) 7.17 (H) 1.70 - [facility] 6.10 [facility] x10(3)/[facility] LABORATORY Lymphocytes % 12.2 % [facility] Lymphocytes Abs 1.2 0.9 - 3.2 [facility] x10(3)/[facility] LABORATORY Monocytes % 9.0 % [facility] Monocyte Abs 0.9 0.3 - 0.9 [facility] x10(3)/[facility] LABORATORY Eosinophils % 3.9 % [facility] Eosinophils Abs 0.4 0.0 - 0.4 [facility] x10(3)/[facility] LABORATORY Basophils % 0.6 % [facility] Basophils Abs 0.1 0.0 - 0.1 [facility] x10(3)/[facility] LABORATORY Immature Gran % 0.50 % [facility] Comment: Immature granulocytes(IG's)percentage an d absolute count will include metamyelocytes, myelocytes, and promyelo cytes. Blood smears from CBCs yielding IG's will be scanned manually for concor dance. If this scan disagrees with the automated IG or if promyelocytes are not ed, a manual differential will be performed. Melisa Gran Abs 0.05 (H) 0.00 - 0.04 x10(3)/[facility] LABORATORY Specimen Anatomical Collection Method Collection Time Receive d Time (Source) Location / / Volume Laterality Blood specimen 08/07/2017 7:30 AM 018 7:45 (specimen) EST AM EST Resulting Agency Comment Spec In Lab Yonathan Smith MD HEMATOLOGY ORDERABLES Performing Organization Address City/State/[place] [address] (ABNORMAL) Hemogram (08/07/2017 7:30 AM EST) Analysis Performed At Patho logist Time Signature WBC 9.7 (H) 4.0 - 9.5 [facility] x10(3)/[facility] LABORATORY RBC 3.54 (L) 4.58 - [facility] 5.54 [facility] x10(6)/[facility] LABORATORY Hemoglobin 9.9 (L) 13.7 - [facility] 16.5 gm/dL [facility] LABOR[facility]ORY Hematocrit 32.3 (L) 40.5 - [facility] 48.5 % [facility] MCV 91.2 82.9 - [facility] 93[facility]1 [facility] LABORATORY MCH 28.0 27.5 - [facility] SU 32.1 pg [facility]ORY MCHC 30.7 (L) 32.0 - [facility] 35.7 gm/dL [facility]OR[facility]ORY Platelets 312 145 - 357 [facility] x10(3)/[facility] LABORATORY RDWSD 53.2 (H) 36.0 - [facility] SU 45.0 [facility] LABORATORY RDWCV 16.0 (H) 11.4 - [facility] SU 13.8 % [facility] LABORATORY MPV 8.9 7.6 - 12.9 [facility] LABORATORY nRBC % Auto 0.0 % [facility] nRBC Abs Auto 0.000 0.000 - [facility] ShopText 0.000 [facility] x10(3)/[facility] LABORATORY Specimen Anatomical Collection Method Collection Time Receive d Time (Source) Location / / Volume Laterality Blood specimen 08/07/2017 7:30 AM 018 7:45 (specimen) EST AM EST Resulting Agency Comment Spec In Lab Yonathan Smith MD HEMATOLOGY ORDERABLES Performing Organization Address City/State/[place] [address] (ABNORMAL) Basic Metabolic Panel (non-fasting) (08/07/2017 7:30 AM EST) athologist Signature Glucose Lvl 80 65 - [address] [facility] mg/dL [facility] Comment: Diabetes: >=200 mg/dL plus symp toms BUN 31 (H) 10 - 20 mg/dL [facility] Creatinine 1.22 0.80 - 1.50 mg/dL [facility] LABOR[facility]ORY Sodium 140 135 - 145 mmol/L [facility]ORY Potassium 4.5 3.5 - 5.0 mmol/L [facility]ORY Comment: Please note: ??Patients with WBC >100,00 0 may have falsely elevated Potassium levels. ??For accurate Potassium quantif ication in these patients send serum separator tube (gold top) for subsequent determinations. ??Contact the Clinical Chemistry Laboratory if there are any qu estions. Chloride 99 98 - 107 mmol/L [facility] CO2 29 22 - 31 mmol/L [facility] Anion Gap 12 5 - 15 mmol/L [facility] Calcium 8.5 8.5 - 10.5 mg/dL [facility]ORY Estimated GFR 59 (L) >=60 [facility] Comment: The reported eGFR should be multiplied b y 1.2 for patients. The MDRD is not an appropriate measure o f renal function for patients with body mass extremes or in patients with acute kidney failure. http://[employer]/DHnkdep http://[employer]/DHMCnkf Specimen Anatomical Collection Method Collection Time Receive d Time (Source) Location / / Volume Laterality Blood specimen 08/07/2017 7:30 AM 018 7:45 (specimen) EST AM EST Resulting Agency Comment Spec In Lab Yonathan Smith MD CHEMISTRY ORDERABLES Performing Organization Address City/[facility]/ZIP Code Phon e Number [address] POCT Glucose (08/07/2017 7:27 AM EST) athologist Signature POC Glucose 81 65 - [address] [facility] mg/dL [facility] Comment: Supplemental ranges: <140 mg/dL before meals <180 mg/dL all other times of the day Specimen Anatomical Collection Method Collection Time Receive d Time (Source) Location / / Volume Laterality Blood specimen 08/07/2017 7:27 AM 018 7:27 (specimen) EST AM EST Yonathan Smith MD POINT OF CARE TEST ORDERABLE S Performing Organization Address [place]/[facility] Phon e Number [address] APTT (08/07/2017 7:04 AM EST) athologist [facility] PTT 34 25 - 35 sec [facility] Comment: The recommended therapeutic range for fu ll dose, unfractionated heparin at [facility] is 80 ? 114 seconds. The use of the anti-Xa (heparin) level rather than the PTT is recommended for monitoring anticoagul ation intensity in critically ill patients receiving unfractionated hepari n by continuous IV infusion. Specimen Anatomical Collection Method Collection Time Receive d Time (Source) Location / / Volume Laterality Blood specimen Venous Draw / 08/07/2017 7:04 AM 2017 7:09 (specimen) Unknown EST AM EST Resulting Agency Comment Spec In Lab Yonathan Smith MD HEMATOLOGY ORDERABLES Performing Organization Address City/[facility]/ZIP [facility] [place] [address] (ABNORMAL) Prothrombin Time (08/07/2017 7:04 AM EST) athologist [facility] PT 17.3 (H) 11.8 - 14.0 [facility] LABORATORY INR 1.4 (H) 0.9 - 1.1 [facility] Comment: An INR <2.0 [...] Location / / Volume Laterality Blood specimen 08/07/2017 7:04 AM 018 7:09 (specimen) EST AM EST Resulting Agency Comment Spec In Lab Yonathan Smith MD HEMATOLOGY ORDERABLES Performing Organization Address City/[facility]/ZIP Code Phon e Number [address] POCT Glucose (08/07/2017 4:03 AM EST) athologist Signature POC Glucose 93 65 - 199 [facility] mg/dL [facility] Comment: Supplemental ranges: <140 mg/dL before meals <180 mg/dL all other times of the day Specimen Anatomical Collection Method Collection Time Receive d Time (Source) Location / / Volume Laterality Blood specimen 08/07/2017 4:03 AM 018 4:03 (specimen) EST AM EST Yonathan Smith MD POINT OF CARE TEST ORDERABLE S Performing Organization Address City/[facility]/ZIP Code Phon e Number [address] POCT Glucose (08/07/2017 12:04 AM EST) athologist Signature POC Glucose 107 65 - 199 [facility] mg/dL [facility] Comment: Supplemental ranges: <140 mg/dL before meals <180 mg/dL all other times of the day Specimen Anatomical Collection Method Collection Time Receive d Time (Source) Location / / Volume Laterality Blood specimen 08/07/2017 12:04 8 (specimen) AM EST 12:04 AM EST Yonathan Smith MD POINT OF CARE TEST ORDERABLE S Performing Organization Address City/[facility]/[place] [address] POCT Glucose (08/06/2017 7:56 PM EST) P athologist Signature POC Glucose 178 65 - 199 [facility] mg/dL [facility] Comment: Supplemental ranges: <140 mg/dL before meals <180 mg/dL all other times of the day Specimen Anatomical Collection Method Collection Time Receive d Time (Source) Location / / Volume Laterality Blood specimen 08/06/2017 7:56 PM 018 7:56 (specimen) EST PM EST Yonathan Smith MD POINT OF CARE TEST ORDERABLE S Performing Organization Address City/State/[place] [address] [id number] (08/06/2017 2:32 PM EST) Component Value Ref Test Analysis Performed At Patholo gist Range Method Time Signature VB Text Department: Vascular Surgery Lab VASCUBASE Report Patient: [id number] (GREGORY HOANG) CPT: 8127276 ICD10: I99.8 Referring Physician: YONATHAN SMITH ?? Indications: Patient with embolic debris s/p cath, now with blue toes on right (severe pain) and mild pain on left, needs amputation, ? trent ayala potential Diabetes mellitus: No ICD10 Diagnosis Code: I99.8 Findings: Right ? Transcutaneous Oxygen Saturation (mm Hg) ?? 10 cm Above Knee ? 51 ?? 15 cm Below Knee ? 30 ?? ForeFoot ? 19 ?? Left ?Transcutaneous Oxygen Saturation (m mHg) ?? Chest ? 109 ?? 10 cm Above Knee ? 49 ?? 15 cm Below Knee ? 14 ?? ForeFoot ?1 ?? Interpretation: Published reports suggest a TCPO2 of 30 mm Hg or greater predictive of adequate tissue oxygenation to promote healing of skin ulcers and amputation sites. The true sensitivity and specifi city of this test, however, is not well established. Comparison: ??No previous study in our vascular lab da tabase for comparison. Notification: Dr. Tee was informed of these preliminary fi ndings. Electronically Signed by: MADDISON STERN on 2017-08-06 04:35:29 PM VB Text End of Report VASCUBASE Report Specimen (Source) Anatomical Collection Method Collection Time Re ceived Time Location / / Volume Laterality 08/06/2017 2:32 PM EST Yonathan Smith MD VASCULAR ORDERABLES Performing Organization Address City/State/ZIP Code Phon e Number VASCUBASE documented in this encounter Visit Diagnoses Diagnosis Critical lower limb ischemia Unspecified circulatory system disorder Ischemic foot Unspecified circulatory system disorder documented in this encounter Administered Medications Inactive Administered Medications - up to 3 most recent administrations Medication Order MAR Action Action Date Dose Rate Site acetaminophen (TYLENOL) tablet Given 08/16/2017 11:19 AM EST 1,0 00 mg 1,000 mg 1,000 mg, Oral, EVERY 6 HOURS WHILE AWAKE, First dose on Wed08/06/17 at 1800, Until Discontinued, Maximum dose of acetaminophen is 4000 mg from all sources in 24 hours., Routine Given 08/16/2017 6:30 AM EST 1,000 mg Given 08/15/2017 5:14 PM EST 1,000 mg AMIOdarone (CORDARONE; PACERONE) tablet 400 Given 08/16/2017 8:00 AM EST 400 mg mg 400 mg, Oral, DAILY, First dose on Wed08/06/17 at 1700, Until Discontinued, Routine Given 08/15/2017 8:07 AM EST 400 mg Given 08/14/2017 8:23 AM EST 400 mg ascorbic acid (vitamin C) (VITAMIN C) tablet Given 8:01 AM EST 500 mg 500 mg 500 mg, Oral, DAILY, First dose on Wed08/06/17 at 1900, Until Discontinued, Routine Given 08/15/2017 8:07 AM EST 500 mg Given 08/14/2017 8:24 AM EST 500 mg aspirin EC tablet 81 mg Given 08/16/2017 8:00 AM EST 81 mg 81 mg, Oral, EVERY OTHER DAY, First dose on Wed08/06/17 at 1700, Until Discontinued, Routine Given 08/14/2017 8:23 AM EST 81 mg Given 08/12/2017 8:10 AM EST 81 mg atorvastatin (LIPITOR) tablet 40 mg Given 08/15/2017 5:14 PM EST 40 mg 40 mg, Oral, EVERY EVENING, First dose on Wed08/06/17 at 1700, Until Discontinued, Routine Given 08/14/2017 5:25 PM EST 40 mg Given 08/13/2017 5:26 PM EST 40 mg bisacodyl (DULCOLAX) suppository 10 mg Given 08/13/2017 5:26 PM EST 10 mg 10 mg, Rectal, DAILY PRN, Starting on Wed08/13/17 at 1058, Until Wed08/16/17 at 1425, Constipation, Routine cefTRIAXone (ROCEPHIN) 2 g vial attach New Bag 08/15/2017 5:15 PM EST 2 g 100 mL/hr to sodium chloride 0.9% 50 mL Mini-Bag Plus 2 g, Intravenous, EVERY 24 HOURS, First dose on Wed08/06/17 at 1700, Until Discontinued, Administer over 30 Minutes, Indication for (Active or Suspected): Skin/Skin Structure New Bag 08/14/2017 5:26 PM EST 2 g 100 mL/hr New Bag 08/13/2017 5:26 PM EST 2 g 100 mL/hr dextrose 50% IV syringe 25-50 mL 25-50 mL (12.5-25 g), Intravenous, EVERY 1 HOUR PRN, S tarting on Wed08/06/17 at 1629, Until Wed08/16/17 at 1425, Low blo od sugar, For BG 50-70: 120 mL Juice or Regular (not diet) soda OR 12.5 gram (25 mL) Dextrose 50% IV OR, if no IV access, 1 mg Glucagon IM. Recheck BG in 30 minut es. May repeat juice, dextrose or glucagon once per episode For BG less than 50: 240 mL Juice or Regular (not diet) soda OR 25 grams (50 mL) Dextrose 50% IV OR, if no IV access, 1 mg Glucagon IM. Recheck BG in 30 minutes. May repeat juice, dext lashon, or glucagon once per episode. To avoid extravasation, push Dextrose 50% SLOWLY (3 mL ov er 1 minute) in a patent, running IV, preferably a central line. For persisten t hypoglycemia, consider longer-acting treatment for the duration of the active insulin., Routine docusate sodium (COLACE) capsule 100 mg Given 08/16/2017 8:00 AM EST 100 mg 100 mg, Oral, 2 TIMES DAILY, First dose on Wed08/13/17 at 0245, Until Discontinued, Routine Given 08/15/2017 8:23 PM EST 100 mg Given 08/15/2017 8:08 AM EST 100 mg enoxaparin (LOVENOX) injection 130 mg Given 08/14/2017 8:10 PM EST 130 mg 130 mg, Subcutaneous, NIGHTLY, First dose on Wed08/12/17 at 2100, Until Discontinued, Routine Given 08/13/2017 8:33 PM EST 130 mg Given 08/12/2017 8:24 PM EST 130 mg fentaNYL (PF) 50 mcg/mL 2mL syringe Given 08/09/2017 7:32 AM EST 25 mcg 50 mcg, Intravenous, EVERY 5 MIN PRN, Pain, or prior to injection of local anesthetic., Starting on Wed08/09/17 at 0710, Until Wed08/09/17 at 1017, Hold for respiratory rate less than 8 breaths per minute. (maximum dose 200 mcg), Day of Surgery (Day of Procedure) fentaNYL (PF) 50 mcg/mL injection 1 dose, Starting on Wed08/10/17 at 0712, Until Wed08/10/17 at 0748, [place]: cabinet override fentaNYL 50 mcg/mL multi-dose injection Given 08/10/2017 8:47 AM EST 25 mcg 25-50 mcg, Intravenous, EVERY 5 MIN PRN, Starting on Wed08/10/17 at 0653, Until Wed08/10/17 at 0922, Pain, per unit protocol, - Start dose 50 mcg (reduce dose to 25 mcg if history of sedation sensitivity). - Titration dose 25-50 mcg IV, (based on patient response) every 3 minutes PRN, to maintain procedural pain less than 2 per pain Scale. Maximum dose: 50 mcg/dose, 250 mcg/hour For use in Interventional Radiology (IR) only for procedural sedation with direct provider supervision and verbal order., Angio/IR (Intra-Procedure), Routine Given 08/10/2017 8:35 AM EST 25 mcg Given 08/10/2017 8:25 AM EST 25 mcg furosemide (LASIX) tablet 40 mg Given 08/16/2017 8:00 AM EST 40 mg 40 mg, Oral, DAILY, First dose on Wed08/06/17 at 1700, Until Discontinued, Routine Given 08/15/2017 8:06 AM EST 40 mg Given 08/14/2017 8:25 AM EST 40 mg glucagon (human recombinant) injection S olR 1 mg 1 mg, Intramuscular, EVERY 1 HOUR PRN, S tarting on Wed08/06/17 at 1629, Until Wed08/16/17 at 1425, Low blood sugar, For BG 50-70: 120 mL Juice or Regular (not diet) soda OR 12.5 gram (25 mL) Dextrose 50% IV OR, if no IV access, 1 mg Glucagon IM. Recheck BG in 30 minutes. May repeat juice, dext lashon or glucagon once per episode For BG less than 50: 240 mL Ju ice or Regular (not diet) soda OR 25 grams (50 mL) Dextrose 50% IV OR, if no IV acc ess, 1 mg Glucagon IM. Recheck BG in 30 minutes. May repeat juice, dextrose, or glucagon once per episode. To avoid extravasation, push Dextrose 50% SLOWLY (3 mL over 1 minute) in a patent, running IV, preferably a central line. For persistent hypogl ycemia, consider longer-acting treatment for the duration of the active insulin., Routine heparin (porcine) 1,000 unit/mL injectio n 1 dose, Starting on Wed08/10/17 at 0712, Until Wed08/10/17 at 0822, [place]: cabinet override heparin (porcine) injection 0-8,000 Given 08/08/2017 11:15 AM ES T 3,000 Units Units 0-8,000 Units, Intravenous, BOLUS PER HEPARIN PROTOCOL, Starting on Wed08/07/17 at 0723, Until Wed08/10/17 at 1122, Per Protocol, START ADJUSTMENT SCHEDULE 6 HOURS AFTER STARTING INFUSION aPTT Between 60 - 79 seconds: Bolus 3,000 units aPTT Less than 60 seconds: Bolus 6,000 units Increase infusion and recheck aPTT in 6 hours. , Routine Given 08/07/2017 3:49 PM EST 3,000 Units heparin (porcine) injection 1,000-10,000 Given 018 8:22 AM EST 9,000 Units Units 1,000-10,000 Units, Intravenous, ONCE, 1 dose, On Wed08/10/17 at 0715, For use in Interventional Radiology (IR) only for procedural sedation with direct provider supervision and verbal order., Angio/IR (Intra-Procedure), Routine heparin 25,000 units in Rate/Dose Verify 08/09/2017 7:33 1,350 Unit s/hr 27 mL/hr dextrose 5% 500 mL PM EST infusion 0-5,000 Units/hr (0-100 mL/hr), Intravenous, CONTINUOUS, Starting on Wed08/07/17 at 0745, Until Wed08/10/17 at 1122, Begin infusion at 1,300 units per hr (15 units/kg/hr). MAX INITIAL infusion rate is 1,750 units/hr Target aPTT = 80 - 114 seconds Start adjustment schedule 6 hours after starting infusion. If aPTT is: - Less than 60 seconds, administer PRN bolus and increase rate by 350 units per hr (4 units/kg/hr) - 60-79 seconds, administer PRN bolus AND increase rate by 150 units per hr (2 units/kg/hr) - 80-114 seconds, no change - 115-129 seconds, decrease rate by 100 units per hr (1 unit/kg/hr) - 130-145 seconds, stop infusion for 30 minutes then decrease rate by 150 units per hr (2 units/kg/hr) - Greater than 145 seconds, stop infusion for 60 minutes then decrease rate by 250 units per hour (3 units/kg/hr) Repeat aPTT 6 hours after initiating heparin. Then 6 hours after each dose adjustment. When 2 consecutive aPTT within target range of 80 - 114 seconds, change aPTT to once every 24 hours with A.M. labs while on heparin. RN to order required aPTT - Per Protocol, Routine New Bag 08/09/2017 4:35 PM EST 1,350 Units/hr 27 mL/hr Continued Bag 08/09/2017 10:01 AM EST 1,350 Units/hr 27 mL/hr HYDROmorphone (DILAUDID) injection 0.2 m g Given 08/07/2017 4:01 PM EST 0.2 mg 0.2 mg, Intravenous, EVERY 4 HOURS PRN, 1 dose, Starting on Wed08/07/17 at 1501, Until Wed08/07/17 at 1601, Pain, give for breakthrough pain after oxycodone oral medication., Routine HYDROmorphone (DILAUDID) injection 0.2 m g Given 08/07/2017 5:39 PM EST 0.2 mg 0.2 mg, Intravenous, ONCE, 1 dose, On Wed08/07/17 at 1715, Routine HYDROmorphone (DILAUDID) injection 0.3 m g Given 08/10/2017 4:08 AM EST 0.3 mg 0.3 mg, Intravenous, ONCE PRN, 1 dose, Starting on Wed08/10/17 at 0347, Until Wed08/10/17 at 0408, Pain, Routine HYDROmorphone (DILAUDID) injection 0.3 m g Given 08/11/2017 4:25 AM EST 0.3 mg 0.3 mg, Intravenous, ONCE PRN, 1 dose, Starting on Wed08/11/17 at 0356, Until Wed08/11/17 at 0425, Pain, Routine HYDROmorphone (DILAUDID) tablet 2-4 mg Given 08/16/2017 10:42 AM EST 4 mg 2-4 mg, Oral, EVERY 3 HOURS PRN, Starting on Wed08/07/17 at 1658, Until Wed08/16/17 at 1425, Pain, 2mg for mild - moderate pain 1-6 OR 4mg for severe pain 7-10, Routine Given 08/16/2017 7:51 AM EST 2 mg Given 08/16/2017 4:27 AM EST 2 mg HYDROmorphone (DILAUDID) tablet 4 mg Given 08/10/2017 2:15 AM EST 4 mg 4 mg, Oral, ONCE PRN, 1 dose, Starting on Wed08/10/17 at 0208, Until Wed08/10/17 at 0215, Pain, Routine insulin glargine VIAL injection 15 Units Given 08/15/2017 8:26 PM EST 15 Units 15 Units, Subcutaneous, NIGHTLY, First dose on Wed08/06/17 at 2100, Until Discontinued, If patient is NPO for procedure, give 7.5 Units of glargine the night before., Routine Given 08/14/2017 8:10 PM EST 15 Units Given 08/13/2017 8:26 PM EST 15 Units insulin lispro (humaLOG) VIAL injection 11 Given 08/16 7:49 AM EST 11 Units Units 11 Units, Subcutaneous, 3 TIMES DAILY WITH MEALS, First dose (after last modification) on 08/07/17 at 1700, Until Discontinued, [employer] If a range is ordered, give smaller dose with less carbohydrate intake. Hold if not eating, Routine Given 08/15/2017 5:08 PM EST 11 Units Given 08/15/2017 12:30 PM EST 11 Units insulin lispro (humaLOG) VIAL injection 15 Given 08/07 12:18 PM EST 15 Units Units 15 Units, Subcutaneous, 3 TIMES DAILY WITH MEALS, First dose (after last modification) on 08/07/17 at 0800, Until Discontinued, [employer] If a range is ordered, give smaller dose with less carbohydrate intake. Hold if not eating, Routine Given 08/07/2017 10:16 AM EST 15 Units insulin lispro (humaLOG) VIAL injection 2-8 Given 07/27 7:49 AM EST 2 Units Units 2-8 Units, Subcutaneous, EVERY 4 HOURS SCHEDULED, First dose on Wed08/06/17 at 2000, Until Discontinued, CORRECTION BOLUS Moderate BG 140 - 160 Give 2 units BG 161 - 200 Give 4 units BG 201 - 240 Give 6 units BG greater than 240, give 8 units and recheck BG in 2 hours. If less than 240 after two hours, give no insulin and resume prior schedule. If BG remains greater than 240, repeat 8 units (no more than three times) & call for new basal insulin orders. DO NOT hold if NPO, unless specifically told to do so., Routine Given 08/16/2017 4:23 AM EST 2 Units Given 08/15/2017 11:58 PM EST 4 Units iodixanol (VISIPAQUE) 320 mg iodine/mL Given 08/10/2017 9:24 AM EST 80 mLs injection 150 mL 150 mL, Intra-arterial, ONCE PRN, 1 dose, Starting on Wed08/10/17 at 0826, Until Wed08/10/17 at 0924, Per Protocol, Routine levothyroxine (SYNTHROID) tablet 175 mcg Given 08/16/2017 6:31 AM EST 175 mcg 175 mcg, Oral, EVERY MORNING, First dose on Wed08/07/17 at 0600, Until Discontinued, Routine Given 08/15/2017 5:02 AM EST 175 mcg Given 08/14/2017 5:01 AM EST 175 mcg lidocaine (LIDODERM) 5 Patch Applied 08/15/2017 8:22 PM 1 patch 20-Other (document % patch 1 patch EST in comment 1 patch, Transdermal, sec tion) EVERY 24 HOURS, First dose on Wed08/06/17 at 1700, Until Discontinued, Apply patch(es) for 12 hours, and then remove for 12 hours, Routine Patch Applied 08/08/2017 5:23 PM EST 1 patch 04- Shoulder (Right) Patch Applied 08/06/2017 4:47 PM EST 1 patch 20-O ther (document in comment section) lidocaine (LIDODERM) 5 %(700 mg/patch) P atch Removal Transdermal, EVERY 24 HOURS, First dose on Wed08/07/17 at 0445, Until Discontinued, Remove lidocaine 5 %(700 mg/patch) patch lidocaine (XYLOCAINE) 10 mg/mL (1 %) injection Given 0 08/10/2017 8:02 AM EST 10 mg 10 mg 10 mg, Subcutaneous, ONCE, 1 dose, On Wed08/10/17 at 0715, For use in Interventional Radiology (IR) only for procedure with direct provider supervision and verbal order., Angio/IR (Intra-Procedure), Routine lidocaine (XYLOCAINE) 10 mg/mL (1 %) inj ection 3 mg 3 mg (0.3 mL), Subcutaneous, ONCE PRN, 1 dose, Startin g on Wed08/06/17 at 1659, Until 08/16/17 at 1425, for discomfort with PIV ins ertion, Routine lisinopril (PRINIVIL;ZESTRIL) tablet 2.5 mg Given 08/16/2017 8:00 AM EST 2.5 mg 2.5 mg, Oral, DAILY, First dose on 08/07/17 at 0900, Until Discontinued, Routine Given 08/15/2017 8:06 AM EST 2.5 mg Given 08/14/2017 8:25 AM EST 2.5 mg LORazepam (ATIVAN) tablet 0.5 mg Given 08/16/2017 10:42 AM EST 0.5 mg 0.5 mg, Oral, EVERY 6 HOURS PRN, Starting on Wed08/06/17 at 1629, Until 08/16/17 at 1425, Anxiety, Routine Given 08/15/2017 1:57 AM EST 0.5 mg Given 08/13/2017 12:24 AM EST 0.5 mg LORazepam (ATIVAN) tablet 0.5 mg Given 08/08/2017 11:03 PM EST 0.5 mg 0.5 mg, Oral, ONCE PRN, 1 dose, Starting on 08/08/17 at 2252, Until 08/08/17 at 2303, Anxiety, Routine magnesium oxide (MAG-OX) tablet 400 mg Given 08/16/2017 8:00 AM EST 400 mg 400 mg, Oral, 2 TIMES DAILY, First dose on Wed08/06/17 at 2100, Until Discontinued Given 08/15/2017 8:25 PM EST 400 mg Given 08/15/2017 8:08 AM EST 400 mg melatonin tablet 3 mg Given 08/13/2017 8:32 PM EST 3 mg 3 mg, Oral, NIGHTLY, First dose on 08/08/17 at 2100, Until Discontinued, Routine Given 08/12/2017 8:22 PM EST 3 mg Given 08/11/2017 9:24 PM EST 3 mg melatonin tablet 3 mg Given 08/13/2017 10:19 PM EST 3 mg 3 mg, Oral, ONCE, 1 dose, On Wed08/13/17 at 2230, Routine melatonin tablet 6 mg Given 08/15/2017 8:25 PM EST 6 mg 6 mg, Oral, NIGHTLY, First dose (after last modification) on Wed08/14/17 at 2100, Until Discontinued, Routine Given 08/14/2017 8:13 PM EST 6 mg meTOPROLOL tartrate (LOPRESSOR) tablet 2 5 mg Given 08/16/2017 8:00 AM EST 25 mg 25 mg, Oral, 2 TIMES DAILY, First dose on Wed08/06/17 at 2100, Until Discontinued, Routine Given 08/15/2017 9:00 AM EST 25 mg Given 08/14/2017 8:12 PM EST 25 mg midazolam (PF) (VERSED) 1 mg/mL injectio n 1 mg Given 08/09/2017 7:36 AM EST 1 mg 1 mg, Intravenous, EVERY 5 MIN PRN, Starting on Wed08/09/17 at 0710, Until Wed08/09/17 at 0955, Sleep, or prior to injection of local anesthetic, Hold for delirium/agitation. (Maximum dose 5 mg)., Day of Surgery (Day of Procedure), Routine Given 08/09/2017 7:31 AM EST 1 mg midazolam (PF) (VERSED) 1 mg/mL injectio n 1 dose, Starting on Wed08/10/17 at 0712, Until Wed08/10/17 at 0748, [place]: cabinet override midazolam (PF) (VERSED) 1 mg/mL multi-dose Given 08/10/2017 8:47 AM EST 0.5 mg injection 0.5-1 mg 0.5-1 mg, Intravenous, EVERY 3 MIN PRN, Starting on Wed08/10/17 at 0653, Until Wed08/10/17 at 0858, Sleep, - Start dose; 1 mg (Reduce dose to 0.5 mg if history of sedation sensitivity). - Titration dose: 0.5 mg - 1 mg (based on patient response) every 3 minutes PRN to obtain RASS score of -3. Maximum dose: 1 mg per dose, 5 mg/hour. For use in Interventional Radiology (IR) only for procedural sedation with direct provider supervision and verbal order., Angio/IR (Intra-Procedure), Routine Given 08/10/2017 8:35 AM EST 0.5 mg Given 08/10/2017 8:25 AM EST 0.5 mg oxyCODONE (ROXICODONE) immediate release Given 08/06/2017 9:44 P M EST 2.5 mg tablet 2.5 mg 2.5 mg, Oral, ONCE PRN, 1 dose, Starting on Wed08/06/17 at 2056, Until Wed08/06/17 at 2144, Pain, Routine oxyCODONE (ROXICODONE) immediate release tablet Given 08/07/2017 2:35 PM EST 5 mg 2.5-5 mg 2.5-5 mg, Oral, EVERY 4 HOURS PRN, Starting on 08/07/17 at 0230, Until 08/07/17 at 1659, Pain, 2.5 mg for mild/moderate pain(1-6/10); 5mg for severe pain (>7/10), Routine Given 08/07/2017 10:17 AM EST 5 mg Given 08/07/2017 6:33 AM EST 5 mg polyethylene glycol (MIRALAX) packet 17 g Given 08/13/2017 11:05 AM EST 17 g 17 g, Oral, DAILY PRN, Starting on Wed08/11/17 at 1300, Until Wed08/16/17 at 1425, Constipation, Routine Given 08/12/2017 11:11 AM EST 17 g Given 08/11/2017 1:18 PM EST 17 g protamine 10 mg/mL injection 1 dose, Starting on Wed08/10/17 at 0712, Until Wed08/10/17 at 0923, [place]: cabinet override protamine injection 10 mg Given 08/10/2017 9:23 AM EST 40 mg 10 mg, Intravenous, ONCE, 1 dose, On Wed08/10/17 at 0715, Angio/IR (Intra-Procedure), Routine senna (SENOKOT) tablet 8.6 mg Given 08/16/2017 8:00 AM EST 8.6 mg 8.6 mg, Oral, 2 TIMES DAILY, First dose on Wed08/13/17 at 0245, Until Discontinued, Routine Given 08/15/2017 8:25 PM EST 8.6 mg Given 08/15/2017 8:08 AM EST 8.6 mg sodium chloride 0.9 % flush 5 mL Given 08/16/2017 6:31 AM EST 5 mLs 5 mL, Intravenous, EVERY 12 HOURS, First dose on Wed08/06/17 at 1715, Until Discontinued, Routine Given 08/15/2017 5:15 PM EST 5 mLs Given 08/15/2017 5:06 AM EST 5 mLs sodium chloride 0.9 % flush 5-20 mL Given 08/06/2017 8:16 PM EST 5 mLs 5-20 mL, Intravenous, EVERY 1 MIN PRN, Starting on Wed08/06/17 at 1659, Until 08/16/17 at 1425, flush, Flush pertains to all indwelling lines. Flush per protocol found in the job aid using the link provided on this medication record., Routine traMADol (ULTRAM) tablet 50 mg Given 08/06/2017 11:58 PM EST 50 mg 50 mg, Oral, EVERY 6 HOURS PRN, Starting on Wed08/06/17 at 1629, Until 08/07/17 at 0214, Pain, Routine Given 08/06/2017 4:41 PM EST 50 mg warfarin (COUMADIN) daily order reminder Oral, EVERY 24 HOURS, First dose on Wed08/12/17 at 1400, Until Discontinued, If the daily warfarin order has not been placed , contact the Provider to confirm that the order will be written, the dose is held or discontinue d. warfarin (COUMADIN) tablet 2.5 mg Given 08/11/2017 4:15 PM EST 2.5 mg 2.5 mg, Oral, ONCE, 1 dose, On Wed08/11/17 at 1700, Routine warfarin (COUMADIN) tablet 2.5 mg Given 08/12/2017 5:24 PM EST 2.5 mg 2.5 mg, Oral, ONCE, 1 dose, On Wed08/12/17 at 1700, Routine warfarin (COUMADIN) tablet 2.5 mg Given 08/13/2017 5:26 PM EST 2.5 mg 2.5 mg, Oral, ONCE, 1 dose, On Wed08/13/17 at 1700, Routine warfarin (COUMADIN) tablet 2.5 mg Given 08/14/2017 5:24 PM EST 2.5 mg 2.5 mg, Oral, ONCE, 1 dose, On 08/14/17 at 1700, Routine warfarin (COUMADIN) tablet 2.5 mg Given 08/15/2017 5:14 PM EST 2.5 mg 2.5 mg, Oral, ONCE, 1 dose, On 08/15/17 at 1700, Routine documented in this encounter Active and Recently Administered Medications Times are shown in EST. Scheduled Medication Order 08/14/2017 08/15/2017 08/16/2017 acetaminophen (TYLENOL) tablet 1,000 mg 0500 (Given - Provider: Henrique Marks RN)1134 (Given - Provider: Chiquis Mcgrath RN)1725 (Given - Provider: Chiquis Mcgrath RN) 0501 (Given - Provider: Henrique ureña RN)1158 (Given - Provider: Chiquis Mcgrath RN)1714 (Given - Provider: Chiquis Mcgrath RN) 0630 (Given - Provider: Mira Truong RN)1119 (Given - Provider: Dory Truong RN) 1,000 mg, Oral, EVERY 6 HOURS WHILE AWAK E, First dose on Wed08/06/17 at 1800, Until Discontinued, Maximum dose of acetaminophen is 4000 mg from all sources in 24 hours., Routine AMIOdarone (CORDARONE; PACERONE) tablet 400 mg 0823 (Marc smith - Provider: Chiquis Mcgrath RN) 0807 (Given - Provider: Chiquis Mcgrath RN) 0800 (G iven - Provider: Dory Truong RN) 400 mg, Oral, DAILY, First dose on Wed at 1700, Until Discontinued, Routine ascorbic acid (vitamin C) (VITAMIN C) tablet 500 mg 08 24 (Given - Provider: Chiquis Mcgrath RN) 0807 (Given - Provider: Chiquis Mcgrath RN) 0801 (Given - Provider: Dory Truong RN) 500 mg, Oral, DAILY, First dose on Wed at 1900, Until Discontinued, Routine aspirin EC tablet 81 mg 0823 (Given - Provider: Chiquis muñoz RN) 0800 (Given - Provider: Dory Truong RN) 81 mg, Oral, EVERY OTHER DAY, First dose on Wed08/06/17 at 1700, Until Discontinued, Routine atorvastatin (LIPITOR) tablet 40 mg 1725 (Given - Prov ider: Chiquis Mcgrath RN) 1714 (Given - Provider: Chiquis Mcgrath RN) 40 mg, Oral, EVERY EVENING, First dose o n Wed08/06/17 at 1700, Until Discontinued, Routine cefTRIAXone (ROCEPHIN) 2 g vial attach t o sodium chloride 0.9% 50 mL Mini-Bag Plus 1726 (New Bag - Provider: Chiquis cho RN)1756 (Stopped - Provider: Henrique Marks RN) 171 (New Bag - Provider: Chiquis cho RN)1745 (Stopped - Provider: Chiquis Mcgrath RN) 2 g, Intravenous, EVERY 24 HOURS, First dose on Wed08/06/17 at 1700, Until Discontinued, Administer over 30 Minutes, Indication for (Active or Suspected): Skin/Skin Structure docusate sodium (COLACE) capsule 100 mg 08 (Given - Provider: Chiquis Mcgrath RN)2012 (Given - Provider: Henrique Marks RN) 08 (Given - Provider: Chiquis Mcgrath RN)2022 (Given - Provider: Mira Truong, VAMSI) 0800 (Given - Provider: Dory Truong, VAMSI) 100 mg, Oral, 2 TIMES DAILY, First dose on Wed08/13/17 at 0245, Until Discontinued, Routine enoxaparin (LOVENOX) injection 130 mg (CANCELED) 2009 (Given - Provider: Henrique Marks RN) 130 mg, Subcutaneous, NIGHTLY, First dos e on Wed08/12/17 at 2100, Until Discontinued, Routine furosemide (LASIX) tablet 40 mg 0825 (Given - Provider: Elias Mcgrath RN) 08 (Given - Provider: Chiquis Mcgrath RN) 0800 (Given - Provider: Dory Truong, VAMSI) 40 mg, Oral, DAILY, First dose on 07/12 at 1700, Until Discontinued, Routine insulin glargine VIAL injection 15 Units 2009 (Given - Provider: Henrique Marks RN) 2025 (Given - Provider: Mira Truong, RN) 15 Units, Subcutaneous, NIGHTLY, First d ose on Wed08/06/17 at 2100, Until Discontinued, If patient is NPO for procedure, give 7.5 Units of glargine the night before., Routine insulin lispro (humaLOG) VIAL injection 11 Units 0829 (Given - Provider: Chiquis Mcgrath, RN)1212 (Given - Provider: Chiquis Mcgrath RN)1730 (Given - Provider: Chiquis Mcgrath, RN) 0746 (Given - Provider: Chiquis muñoz RN)1230 (Given - Provider: Chiquis Mcgrath, RN)1708 (Given - Provider: Chiquis Mcgrath RN) 0749 (Given - Provider: Dory Yuan ams, RN)1200 (Not Given - Provider: Dory Truong RN - Reason: Patient/family refused) 11 Units, Subcutaneous, 3 TIMES DAILY TH MEALS, First dose on Wed08/07/17 at 1700, Until Discontinued, [employer] If a range is ordered, give smaller dose with less carbohydrate intake. Hold if not eating, Routine insulin lispro (humaLOG) VIAL injection 2-8 Units(Link ed Group 1) 0000 (Not Given - Provider: Henrique Marks RN - Reason: Order parameters not met)0400 (Not Given - Provider: Henrique Marks RN - Reason: Order parameters not met)0828 (Given - Provider: Chiquis Mcgrath RN - Comment: BG 158) 0000 (Not Given - Provider: Henrique Marks RN - Reason: Order parameters not met)0504 (Given - Provider: Henrique Marks RN)0800 (Not Given - Provider: Chiquis Mcgrath RN - Reason: Order parameters not met - Comment: BG 124) 0423 (Given - Provider: Mira Truong RN)0749 (Given - Provider: Dory Truong RN)1200 (Not Given - Provider: Dory Truong RN - Reason: Patient/family refused) 2-8 Units, Subcutaneous, EVERY 4 HOURS S CHEDULED, First dose on Wed08/06/17 at 2000, Until Discontinued, CORRECTION BOLUS Moderate BG 140 - 160 Give 2 units BG 161 - 200 Give 4 units BG 201 - 240 Gi 1213 (Given - Provider: Chiquis Mcgrath RN - Comment: BG 141)1730 (Given - Provider: Chiquis Mcgrath RN - Comment: BG 174)2008 (Given - Provider: Henrique Marks RN) 1200 (Not Given - Provider: Chiquis Mcgrath RN - Reason: Order parameters not met - Comment: BG 135)1707 (Given - Provider: Chiquis Mcgarth RN)2024 (Not Given - Provider: Mira Truong RN - Reason: Order parameters not met) ve 6 units BG greater than 240, give 8 u nits and recheck BG in 2 hours. If less than 240 after two hours, give no insulin and resume prior schedule. If BG remains greater than 240, repeat 8 units (no mo 2358 ( Given - Provider: Mira Truong RN) re than three times) & call for new basa l insulin orders. DO NOT hold if NPO, unless specifically told to do so., Routine levothyroxine (SYNTHROID) tablet 175 mcg 0501 (Given - Provider: Henrique Marks RN) 0502 (Given - Provider: Henrique Marks RN) 0631 (G iven - Provider: Mira Truong RN) 175 mcg, Oral, EVERY MORNING, First dose on 08/07/17 at 0600, Until Discontinued, Routine lidocaine (LIDODERM) 5 % patch 1 patch(Linked Group 2) 173 (Not Given - Provider: Chiquis Mcgrath RN - Reason: Patient/family refused) 1699 (Not Given - Provider: Chiquis Mcgrath RN - Reason: Patient/family refused)2021 (Patch Applied - Provider: Mira Truong RN - Comment: right foot) 1 patch, Transdermal, EVERY 24 HOURS, Fi rst dose on Wed08/06/17 at 1700, Until Discontinued, Apply patch(es) for 12 hours, and then remove for 12 hours, Routine lidocaine (LIDODERM) 5 %(700 mg/patch) Patch Removal(L inked Group 2) 0445 (Patch Removed - Provider: Henrique Marks RN) 0445 (Patch Removed - Provider: Henrique Marks RN) 0900 (Patch Removed - Provider: Dory Truong RN) Transdermal, EVERY 24 HOURS, First dose on 08/07/17 at 0445, Until Discontinued, Remove lidocaine 5 %(700 mg/patch) patch lisinopril (PRINIVIL;ZESTRIL) tablet 2.5 mg 0825 (Give n - Provider: Chiquis Mcgrath RN) 0806 (Given - Provider: Chiquis Mcgrath, RN) 0800 (G iven - Provider: Dory Truong, RN) 2.5 mg, Oral, DAILY, First dose on Sat at 0900, Until Discontinued, Routine magnesium oxide (MAG-OX) tablet 400 mg 0826 (Given - P rovider: Chiquis Mcgrath RN)2010 (Given - Provider: Henrique Marks RN) 807 (Given - Provider: Chiquis Mcgrath RN)2024 (Given - Provider: Mira Truong, RN) 08 (Given - Provider: Dory Truong RN) 400 mg, Oral, 2 TIMES DAILY, First dose on Wed08/06/17 at 2100, Until Discontinued melatonin tablet 6 mg 2012 (Given - Provider: Henrique vargas RN) 2024 (Given - Provider: Mira Truong, RN) 6 mg, Oral, NIGHTLY, First dose on Sat at 2100, Until Discontinued, Routine meTOPROLOL tartrate (LOPRESSOR) tablet 25 mg 0825 (Giv en - Provider: Chiquis Mcgrath RN)2011 (Given - Provider: Henrique Marks RN) 09 (Given - Provider: Chiquis Mcgrath RN)2022 (Hold - Provider: Mira Truong, RN - Reason: See comment - Comment: BP 95/58. Per Dr. Flores. Ok to hold) 0800 (Given - Provider: Dory Truong RN) 25 mg, Oral, 2 TIMES DAILY, First dose o n Wed08/06/17 at 2100, Until Discontinued, Routine senna (SENOKOT) tablet 8.6 mg 0826 (Given - Provider: Chiquis Mcgrath RN)2011 (Given - Provider: Henrique Marks RN) 08 (Given - Provider: Chiquis Mcgrath RN)2024 (Given - Provider: Mira Truong, RN) 0800 (Given - Provider: Dory Truong, RN) 8.6 mg, Oral, 2 TIMES DAILY, First dose on Wed08/13/17 at 0245, Until Discontinued, Routine sodium chloride 0.9 % flush 5 mL 0515 (Given - Provide r: Henrique Marks, VAMSI)1733 (Given - Provider: Chiquis Mcgrath RN) 0506 (Given - Provider: Henrique Marks RN)1715 (Given - Provider: Chiquis Mcgrath RN) 0631 (Given - Provider: Mira Truong RN) 5 mL, Intravenous, EVERY 12 HOURS, First dose on 08/06/17 at 1715, Until Discontinued, Routine warfarin (COUMADIN) daily order reminder 1400 (Dose co nfirmed - Provider: Chiquis Mcgrath RN) 1400 (Dose confirmed - Provider: Chiquis Mcgrath RN ) Oral, EVERY 24 HOURS, First dose on Ivis 08/12/17 at 1400, If the daily warfarin order has not been placed, contact the Provider to confirm that the order will be written, the dose is held or discontinued. warfarin (COUMADIN) tablet 2.5 mg (COMPLETED) 172 (Gi keke - Provider: Chiquis Mcgrath RN) 2.5 mg, Oral, ONCE, 1 dose, 08/14/17 at 1700, Routine warfarin (COUMADIN) tablet 2.5 mg (COMPLETED) 171 (Given - Provider: Chiquis Mcgrath RN) 2.5 mg, Oral, ONCE, 1 dose, 08/15/17 at 1700, Routine PRN Medication Order 08/14/2017 08/15/2017 08/16/2017 bisacodyl (DULCOLAX) suppository 10 mg 10 mg, Rectal, DAILY PRN, Starting Wed at 1058, Until 08/16/17 at 1425, Constipation, Routine dextrose 50% IV syringe 25-50 mL(Linked Group 3) 25-50 mL (12.5-25 g), Intravenous, EVERY 1 HOUR PRN, Starting Wed08/06/17 at 1629, Until 08/16/17 at 1425, Low blood sugar, For BG 50-70: 120 mL Juice or Regular (not diet) soda OR 12.5 gram (25 mL ) Dextrose 50% IV OR, if no IV access, 1 mg Glucagon IM. Recheck BG in 30 minutes. May repeat juice, dextrose or glucagon once per episode For BG less than 50: 240 mL Juice or Regular (not diet) sod a OR 25 grams (50 mL) Dextrose 50% IV OR , if no IV access, 1 mg Glucagon IM. Recheck BG in 30 minutes. May repeat juice, dextrose, or glucagon once per episode. To avoid extravasation, push Dextrose 50% SLOWLY (3 mL over 1 minute) in a pa tent, running IV, preferably a central line. For persistent hypoglycemia, consider longer-acting treatment for the duration of the active insulin., Routine glucagon (human recombinant) injection SolR 1 mg(Linked Group 3) 1 mg, Intramuscular, EVERY 1 HOUR PRN, S tarting Wed08/06/17 at 1629, Until 08/16/17 at 1425, Low blood sugar, For BG 50-70: 120 mL Juice or Regular (not diet) soda OR 12.5 gram (25 mL) Dextrose 50% IV OR, if no IV access, 1 mg Glucagon I M. Recheck BG in 30 minutes. May repeat juice, dextrose or glucagon once per episode For BG less than 50: 240 mL Juice or Regular (not diet) soda OR 25 grams (50 mL) Dextrose 50% IV OR, if no IV acc ess, 1 mg Glucagon IM. Recheck BG in 30 minutes. May repeat juice, dextrose, or glucagon once per episode. To avoid extravasation, push Dextrose 50% SLOWLY (3 mL over 1 minute) in a patent, running IV, preferably a central line. For persistent hypoglycemia, consider longer-acting treatment for the duration of the active insulin., Routine HYDROmorphone (DILAUDID) tablet 2-4 mg 0454 (Given - P rovider: Henrique Marks RN)0824 (Given - Provider: Chiquis Mcgrath RN)1135 (Given - Provider: Chiquis Mcgrath, VAMSI)1751 (Given - Provider: Chiquis Mcgrath, VAMSI) 0157 (Given - Provider: Melba Jaramillo RN)0807 (Given - Provider: Chiquis Mcgrath, VAMSI)1159 (Given - Provider: Chiquis Mcgrath, VAMSI)1542 (Given - Provider: Kim Borges RN)2144 (Given - Provider: Alyson Middleton RN) 0427 (Given - Provider: Mira Truong RN)0751 (Given - Provider: Dory Truong RN)1042 (Given - Provider: Dory Truong RN) 2-4 mg, Oral, EVERY 3 HOURS PRN, Startin g 08/07/17 at 1658, Until 08/16/17 at 1425, Pain, 2mg for mild - moderate pain 1-6 OR 4mg for severe pain 7-10, Routine 210 (Given - Provider: Henrique ureña RN - Comment: pt requesting 4 mg) lidocaine (XYLOCAINE) 10 mg/mL (1 %) injection 3 mg 3 mg (0.3 mL), Subcutaneous, ONCE PRN, 1 dose, Starting Wed08/06/17 at 1659, Until Wed08/16/17 at 1425, for discomfort with PIV insertion, Routine LORazepam (ATIVAN) tablet 0.5 mg 0157 (G iven - Provider: Melba Jaramillo RN) 1042 (Given - Provider: Dory Yuan ams, RN) 0.5 mg, Oral, EVERY 6 HOURS PRN, Startin g Wed08/06/17 at 1629, Until Wed08/16/17 at 1425, Anxiety, Routine polyethylene glycol (MIRALAX) packet 17 g 17 g, Oral, DAILY PRN, Starting 08/11 at 1300, Until Wed08/16/17 at 1425, Constipation, Routine sodium chloride 0.9 % flush 5-20 mL 5-20 mL, Intravenous, EVERY 1 MIN PRN, S tarting Wed08/06/17 at 1659, Until Wed08/16/17 at 1425, flush, Flush pertains to all indwelling lines. Flush per protocol found in the job aid using the link provided on this medication record., Routine Linked Groups Order Group 1: POCT Fingerstick Glucose (CANCELED) Routine, EVERY 4 HOURS, First occurrence on Wed08/06/17 at 2000, Until Specified
Consider choosing EVERY 4 HOURS as frequency for: - Type 1 Diabetes - At least 24 hours after coming off an insu shabnam drip - At least 24 hours after admis latonya for DKA - Hypoglycemia unawareness - Patients who are otherwise unstable Select the same frequency for the correction bolus insulin order And insulin lispro (humaLOG) VIAL injection 2-8 UnitsJump to med 2-8 Units, Subcutaneous, EVERY 4 HOURS S CHEDULED, First dose on Wed08/06/17 at 2000, Until Discontinued
CORRECTION BOLUS Moderate BG 140 - 160&nbsp ; Give 2 units BG 161 - 200 Give 4 units BG 201 - 240 Give 6 units B G greater than 240, give 8 units and rec heck BG in 2 hours. If less than 240 after two hours, give no insulin and resume prior schedule. If BG remains greater than 240, repeat 8 units (no more than thre e times) & call for new basal insulin or ders. DO NOT hold if NPO, unless specifically told to do so.
Routine Group 2: lidocaine (LIDODERM) 5 % patch 1 patchJump to med 1 patch, Transdermal, EVERY 24 HOURS, Fi rst dose on Wed08/06/17 at 1700, Until Discontinued
Apply patch(es) for 12 hours, and then remove for 12 hours
Routine And lidocaine (LIDODERM) 5 %(700 mg/patch) Patch RemovalJump to med Transdermal, EVERY 24 HOURS, First dose on Wed08/07/17 at 0445, Until Discontinued
Remove lidocaine 5 %(700 mg/patch) patch
Group 3: dextrose 50% IV syringe 25-50 mLJump to med 25-50 mL (12.5-25 g), Intravenous, EVERY 1 HOUR PRN, Starting Wed08/06/17 at 1629, Until Wed08/16/17 at 1425, Low blood sugar
For BG 50- 70: 120 mL Juice or Regular (not t) soda OR 12.5 gram (25 mL) Dextrose 50 % IV OR, if no IV access, 1 mg Glucagon IM. Recheck BG in 30 minutes. May repeat juice, dextrose or glucagon once per epis ode For BG less than 50: 240 mL J uice or Regular (not diet) soda OR 25 grams (50 mL) Dextrose 50% IV OR, if no IV access, 1 mg Glucagon IM. Recheck BG in 30 minutes. & nbsp;May repeat juice, dextrose, or gluc agon once per episode. To avoid extravasation, push Dextrose 50% SLOWLY (3 mL over 1 minute) in a patent, running IV, preferably a central line.&nb sp;For persistent hypoglycemia, consid er longer-acting treatment for the duration of the active insulin.
Routine Or glucagon (human recombinant) injection SolR 1 mgJump to med 1 mg, Intramuscular, EVERY 1 HOUR PRN, S tarting Wed08/06/17 at 1629, Until Wed08/16/17 at 1425, Low blood sugar
For BG 50-70: 120 mL Juice or Regular (not diet) soda OR 12. 5 gram (25 mL) Dextrose 50% IV OR, if no IV access, 1 mg Glucagon IM. Recheck BG in 30 minutes. May repeat juice, dextrose or glucagon once per episode * *For BG less than 50: 240 mL Juice or Re gular (not diet) soda OR 25 grams (50 mL) Dextrose 50% IV OR, if no IV access, 1 mg Glucagon IM. Recheck BG in 30 minutes. May repea t juice, dextrose, or glucagon once per episode. To avoid extravasation, push Dextrose 50% SLOWLY (3 mL over 1 minute) in a patent, running IV, preferably a central line. For persi stent hypoglycemia, consider longer-acti ng treatment for the duration of the active insulin.
Routine documented in this encounter Care Teams It Specialist Relationship Specialty Start Date End Date Lovely Vicente MD PCP - General 04/16/[address] [place] [address] [address] [place] [address] documented as of this encounter
--- OUTSIDE RECORDS SUMMARY | 2022-02-06 13:34 | XMS_ITS | Encounter Summary ---
:1945 Author Organization [facility] [place] [address] Care Team Providers Name Role Phone Lovely Vicente MD Primary Care Provider Reason for Visit Auth/Cert Specialty Diagnoses / Procedures Referred By Contact Refer red To Contact Diagnoses Critical lower limb ischemia CELLULITIS RT FOOT Procedures EMERGENCY Referral ID Status Reason Start Date Expiration Date Visits Requ ested Visits Authorized [id number] 1 1 Encounter Details Date Type Department Care Team Description 08/11/2017 Surgery Main Operating Room Yonathan Smith (M SURG) DRESSING CHANGE Barbara Ocampo MD (FOR OTHER THAN IVAN) [facility] UNDER ANES. 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 Patient [...] Dorsalis Pedis (Ankle) Artery ?132 ? 0.94 ??Richmond-Biphasic ? Posterior Tibial (Ankle) Artery ??154 ? 1.10 ??Richmond-Biphasic ? Fourth Toe ? 67 ?0.48 ?? [...] foot. Discharge Conditions/Prognosis: Good Discharge to: [facility] Rehab Discharge Medications: Your Medications New Medications [...] For any problems or questions please call [phone] ZELDA Smith, improvement analyst Nurse Clinician For issues on weeknights after 5pm and weekends please call [phone] and ask for the Vascular Fellow prosthodontist/educator. General Instructions None Future Appointments and Orders Future Appointments Provider Department Dept Phone 08/26/2017 4:00 PM Aurelia Rivera PA V[facility] Surgery [facility] [place] [phone] 09/07/2017 3:00 PM LAB, THREE L Lab 3L [facility] [phone] 09/07/2017 4:00 PM Luz Prescott MD Endocrinology at [place] [phone] 09/09/2017 8:00 AM Barbra Soares APRN Pain Management at [place] [phone] Please bring a list of your current medications and dosage amounts. Discharge References/Attachments: Discharge References/Attachments None Electronically Signed By: YISSEL QUINTERO RN 08/16/2017 documented in this encounter Discharge Instructions Discharge Yissel Dunaway RN - 08/16/2017 10:55 AM EST Patient [...] For any problems or questions please call [phone] ZELDA Smith, improvement analyst Nurse Clinician For issues on weeknights after 5pm and weekends please call [phone] and ask for the Vascular Fellow prosthodontist/educator. documented in this encounter Medications at Time [...] as of this encounter Progress Notes Shirin Wolf RN - 08/16/2017 11:14 AM EST Office of Care Management Discharge Note Patient Destination: [facility] ([facility]) [address] [place] [id number] Transportation: with (at bedside) Time of Discharge: by 12 noon Level of Care: swing Patient Aware: yes Family Notified: yes Md to call report to: Yissel Quintero POACHER OPERATOR already called RN to call report to: [phone] Shirin Wolf Office of Care Management Pager [phone] Shirin Wagner RN - 08/16/2017 10:50 AM EST [facility] has offered pt swing bed. Pt and accept bed. will transport via car. POACHER OPERATOR Yissel Quintero aware; d/c paperwork will be completed by 12 noon. [facility] requests pt arrival by 1400 today; POACHER OPERATOR, RN, and family aware. POACHER OPERATOR called [facility] and was told that they prefer pt to arrive with wound vac dressing applied but clamped. POACHER OPERATOR applied new wound vac dressing. RN has [facility] number to call report. PASSR completed; POACHER OPERATOR paged to request provider signature in highlighted space. Indigo from [facility] notified via email that home wound vac now cancelled; [facility] has picked up from room and order cancelled. Packet started and provided to community development specialist. Medicare important message explained to patient, patient signed. Copy provided to patient and signature page to OCM for inclusion in pt EMR. Radha Georges - 08/16/2017 10:34 AM EST Office of Care Management/Credit Collection Specialist Patient Name: Gregory Hoang : 1945 Patient has been offered a swing bed at [facility]. The patient will be transported by private transportation. No MD to MD report necessary Please call Nursing Report to [phone], ask for clam treader. Info to accompany patient: Narcotic Prescriptions Copies of Medication Administration Records and IV sheets for past 10 days. Plan: Credit Collection Specialist will be available to the patient and Roll Scale Man-RN and/or Closed Circuit Screen Watcher for further assistance. Patient will be discharged to: [facility] [address] [place] [address] [id number] Radha Powers, Credit Collection Specialist Mira Black, VAMSI - 08/15/2017 10:05 PM EST [address] Flores to ask if he wanted to hold metoprolol dose. BP 95/58. OK to hold this dose Courtney Brito - 08/15/2017 3:26 PM EST Office of Care Management(OCM)/Credit Collection Specialist(RS)/ D/C Planning re : Patient is medically ready for d/c today. RS has been in contact with [facility] to see if they could offer a bed. [facility] is still reviewing the case and need their MD to review chart prior to accepting or declining. OCM team needs to check in with [place] tomorrow to check on status. 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 Vac in place. Rehab referrals ongoing. Can ambulate in hallway. Change VAC at bedside today. Naty Colindres RN - 08/14/2017 1:33 PM EST Patient Name: Gregory Hoang Patient Age: 72 y.o. Birthdate: 1945 Admit date: 08/06/2017 Attending Physician: Yonathan Smith MD We want him to go to a place for intensive therapy and not at a usp where he will be just sitting there and not getting any therapy. . Contacted by direct care RN, who said that patient and would like information about patient's referral to: [facility] PHONE: [phone] FAX: [phone] CM spoke with RS who said that [...] would be accepted to acute rehab at [facility] as Dr. Smith had recommended [...] rehab. Await recommendations from PT. Covering pager #[phone]. 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 CM provided pt with edelmira, and answered procedure for rehab referral. Pt states he will think about it and let OCM know if he wants to do rehab instead of going home with [place] [facility]. Mover Helper Kaitlin Saha, RN Pager #[phone] Payam Rosales - 08/13/2017 2:37 PM EST Treatment Plant Operator Encounter Note Patient Name: Gregory Hoang : [id number] MR#: [id number] Admit Date: 08/06/2017 1:41 PM Hospital Day 7 days Narrative: Visited to introduce and assess acceptance of Treatment Plant Operator services. Pt was awake, alert, oriented and in chair and family was there. Assessment:Patient coping positively with stresses of illness/hospitalization at this time. Pt says that he is hoping to get better and his family was there. Pt says that he has family care and supportand taking one day at time. Intervention and Outcome: Provided emotional support and encouraging presence. Treatment Plant Operator services accepted.Conversation to build trusting relationship.Provided pastoral presence.Provided spiritual guidance. 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 A letter describing our affiliations was reviewed with them and theywere educated about their right to choose where referrals are placed. Patient requests referral to [facility]. PHONE: [phone] FAX: [phone]. And Home NPWT (Negative Pressure Wound Therapy) aka wound vac device made available to pt. Serial # confirmed. Reviewed [facility] Proof of Delivery/Assignment of Benefits Statement(POD/AOB) Form w patient or authorized agent signing on behalf of patient. Copy of POD/AOB provided to pt and other copy faxed to [employer] @ fax# [phone] Expected date of discharge: 08/12/2017. 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 Address: [address] [place] [address] [place] [address] (home) Mobile: Telephone Information: Referring Provider: No [...] wall L98.9 ??? Goiter E04.9 ??? MARIA IVCTORIA (obstructive sleep apnea) on CPAP G47.33 ??? [...] SETUP performed by Manny Mcknight MD at [facility] MAIN OR ??? PRO CABG, ARTERIAL, SINGLE N/A 07/07/2017 @CABG, USING ARTERIAL GRAFT;SINGLE ARTERIAL GRAFT (WRVU 33.75) performed by Yuan Retana MD at [facility] MAIN OR ??? PRO CABG, ARTERY-VEIN, TWO N/A 07/07/2017 @CABG, TWO VENOUS GRAFTS & ARTERIAL GRAFT (WRVU 7.93) performed by Yuan Retana MD at [facility] MAIN OR ??? PRO COLONOSCOPY, REMV LESN, SNARE 01/16/2014 COLONOSCOPY, POLYPECTOMY, REMOVAL LESION BY SNARE performed by Nohemi Jaimes MD at [facility] ENDOSCOPY ??? PRO ENDOSCOPY W/VIDEO-ASST VEIN HARVEST, CABG Right 07/07/2017 ENDOSCOPIC HARVEST VEIN(S) FOR CABG (WRVU 0.31) performed by Yuan Retana MD at [facility] MAIN OR ??? PRO THYROIDECTOMY 03/28/2013 THYROIDECTOMY, TOTAL OR COMPLETE performed by Manny Mcknight MD at 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 Heparin gtt continues to run. Pt [...] Pt continues to have pain. Now reports 04/04. Vascular teamed paged and spoke with pt [...] post-op plan Viry Starkey MD 08/09/2017 Angela Holloway RN - 08/09/2017 10:45 AM EST ANGIO NURSING DATABASE Name: GREGORY HOANG Date of : 1945 AGE 72 y.o. Address: [address] [place] [address] [place] [address] (home) Mobile: Telephone Information: Referring Provider: No [...] SETUP performed by Manny Mcknight MD at [facility] MAIN OR ??? PRO CABG, ARTERIAL, SINGLE N/A 07/07/2017 @CABG, USING ARTERIAL GRAFT;SINGLE ARTERIAL GRAFT (WRVU 33.75) performed by Yuan Retana MD at [facility] MAIN OR ??? PRO CABG, ARTERY-VEIN, TWO N/A 07/07/2017 @CABG, TWO VENOUS GRAFTS & ARTERIAL GRAFT (WRVU 7.93) performed by Yuan Retana MD at [facility] OR ??? PRO COLONOSCOPY, REMV LESN, SNARE 01/16/2014 COLONOSCOPY, POLYPECTOMY, REMOVAL LESION BY SNARE performed by Nohemi Jaimes MD at [facility] ENDOSCOPY ??? PRO ENDOSCOPY W/VIDEO-ASST VEIN HARVEST, CABG Right 07/07/2017 ENDOSCOPIC HARVEST VEIN(S) FOR CABG (WRVU 0.31) performed by Yuan Retana MD at [facility] MAIN OR ??? PRO THYROIDECTOMY 03/28/2013 THYROIDECTOMY, TOTAL OR COMPLETE performed by Manny Mcknight MD at [facility] MAIN OR Date/Procedure Meds given/comments [...] Patient not taking: Reported on 08/04/2017 07/27/17 Carlos Alberto Reddy MD traMADol (ULTRAM) 50 [...] 0905- Report rec'd & care assumed. 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 Unsuccessful draw attempt, another v belt finisher will come [facility] to collect blood for PTT test. Chiquis Trivedi RN - 08/08/2017 4:55 PM EST Patient blood sugar 58 at 1601. Patient given juice, hira crackers, and peanut butter. Sugar rechecked at 1642 for 78. Patient given more hira crackers and peanut butter. concerned about bloodsugars today, discussed plan of care with patient and . Continue q4h glucose monitoring. 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 Vascular resident prosthodontist/educator and will forward result to the team prior to rounds. 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 Patient [...] SETUP performed by Manny Mcknight MD at [facility] MAIN OR ??? PRO CABG, ARTERIAL, SINGLE N/A 07/07/2017 @CABG, USING ARTERIAL GRAFT;SINGLE ARTERIAL GRAFT (WRVU 33.75) performed by Yuan Retana MD at [facility] MAIN OR ??? PRO CABG, ARTERY-VEIN, TWO N/A 07/07/2017 @CABG, TWO VENOUS GRAFTS & ARTERIAL GRAFT (WRVU 7.93) performed by Yuan Retana MD at [facility] MAIN OR ??? PRO COLONOSCOPY, REMV LESN, SNARE 01/16/2014 COLONOSCOPY, POLYPECTOMY, REMOVAL LESION BY SNARE performed by Nohemi Jaimes MD at [facility] ENDOSCOPY ??? PRO ENDOSCOPY W/VIDEO-ASST VEIN HARVEST, CABG Right 07/07/2017 ENDOSCOPIC HARVEST VEIN(S) FOR CABG (WRVU 0.31) performed by Yuan Retana MD at [facility] MAIN OR ??? PRO THYROIDECTOMY 03/28/2013 THYROIDECTOMY, TOTAL OR COMPLETE performed by Manny Mcknight MD at [facility] MAIN OR Functional Status/Social Hx: [...] left blue toes with CTA showing R CHEMISTRY ASSOCIATE pseudoaneurysm (now thrombosed) and occluded ATs bilaterally. [...] 2.5x80 5. Completion RLE angiogram 6. L CHEMISTRY ASSOCIATE angiogram 7. 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 - L CHEMISTRY ASSOCIATE angriogram demonstrated: High femoral bifurcation over the proximal half of the femoral head. L CHEMISTRY ASSOCIATE access in the distal L CHEMISTRY ASSOCIATE. - Closure device: Mynx Technical Procedure: The [...] for a 45cm 5F Destination. V18 and Crescent and QuickCross catheters were used to select [...] 5F. A stationed picture of the L CHEMISTRY ASSOCIATE was performed as the patient was noted to have a very high bifurcation. Access appeared in the distal R CHEMISTRY ASSOCIATE. Closure and sheath removal was performed with [...] PM EST 1440 report called to 5 le roy nurse Tessa AGUSTIN documented in this encounter Miscellaneous Notes Plan of Care - Dory Truong RN - 08/16/2017 10:51 AM EST Problem: Patient Care Overview Goal: Plan of Care Review Outcome: Outcome (s) achieved Date Met: 08/16/17 08/14/17 1939 08/16/17 4781 Coping/Psychosocial Plan Of Care Reviewed With -- patient Plan of Care Review Progress improving -- Discussed discharge instructions with pt and pt's spouse. Discharge to [facility]. Goal: Individualization & Mutuality Outcome: Outcome (s) [...] Met: 08/16/17 08/16/17 0000 08/16/17 0739 08/16/17 0751 Positioning Body Position -- -- -- Activity [...] achieved Date Met: 08/16/17 08/16/17 0739 08/16/17 0751 Safety Interventions Isolation Precautions standard precautions maintained [...] (s) achieved Date Met: 08/16/17 08/07/17 1622 08/16/17 0528 Tissue Perfusion, Ineffective Peripheral Tissue Perfusion, [...] (s) achieved Date Met: 08/16/17 08/16/17 1047 Tissue Perfusion, Ineffective Peripheral (Adult) Adequate Tissue [...] (s) achieved Date Met: 08/16/17 08/16/17 104 Skin Integrity Impairment, Risk/Actual (Adult) Skin Integrity/Wound [...] sit/sit to supine -- Bed Mobility Goal, Hemphill Level independent -- Bed Mobility Goal, Date Goal Reviewed -- 08/14/17 Bed Mobility Goal, Outcome Achieved -- goal ongoing Goal: Occupational Therapy Goal Stand Alone Therapy Goal Outcome: Outcome (s) achieved Date Met: 08/16/17 08/12/17 1536 08/16/17 104 Occupational Therapy Goal OT Goal, Date Established [...] days -- Transfer Training Goal, Activity Type dhi-ar-cunmn/adsqq-nf-dfa -- Transfer Train Goal, Hemphill Level conditional independence -- Transfer Train Goal, Date Goal Reviewed -- 08/14/17 Transfer Training Goal, Outcome -- goal ongoing Plan of Care - Mira Truong RN - 08/16/2017 5:36 AM EST Problem: Patient Care Overview Goal: Plan of Care Review Outcome: Ongoing (Interventions Implemented as Appropriate) 08/14/17193808/15/172029 Coping/Psychosocial Plan Of Care Reviewed With -- [...] call cabello within reach, Hourly rounding by RN/HOOP DRIVING MACHINE OPERATOR HELPER. Bed alarm / Chair alarm. Patient-specific fall [...] Outcome: Ongoing (Interventions Implemented as Appropriate) 08/07/17 16208/08/172299 Discharge Needs Assessment Concerns To Be Addressed [...] Smith MD - 08/15/2017 6:28 PM EST [facility] Operative Note Patient Name: Gregory Hoang : [id number] MR#: [id number] Case Date: 08/09/2017 Surgeon: Surgeon(s) and Role: [...] EVALUATION NOTE: OUTCOME SUMMARY: Pt is A/O carrington4VIVIANA Strengths 11/27. Pt required around the clock PRN dilaudid for pain at the amputation site. Pt was able to sleep through a portion of the shift. PLAN MOVING FORWARD: SNF INDIVIDUALIZED FALL PREVENTION INTERVENTIONS: LORNE rivers Patient-specific fall risk factors per assessment: Wound [...] 2.5x80 5. Completion RLE angiogram 6. L CHEMISTRY ASSOCIATE angiogram 7. Mynx closure Precautions/Restrictions: fall, sternal [...] feet/ bed -> bathroom). Anticipated Discharge Disposition: assisted facility, other (see comments) (or swing bed) Pager: [phone] BASSAM ELIAS, PT 08/14/2017 Inpatient Physical Therapy [...] to Achieve by discharge Gait Training Goal, Hemphill Level conditional independence;set up required Gait Training [...] facilities over the weekend except for [facility]. CM spoke with [facility] KANWAL Sandhu RN who said that they do not anticipate any beds over the weekend. Reviewed with patient/ that they need to be aware that patient will need to take the first bed offered at the facilities that they make referrals to. Their choices are: 1- [facility] PHONE: [phone] FAX: [phone] 2- [facility] ([facility]) [address] [place] [address] 3- [facility]) [address] [place] [address] I have discussed Medicare/Private Insurance [...] RS/CM on Wednesday to follow-up. Covering pager #[phone] for today. Plan of Care - Henrique Marks RN - 08/14/2017 5:49 AM EST Problem: Patient Care Overview Goal: Plan of Care Review Outcome: Ongoing (Interventions Implemented as Appropriate) 08/12/17 1510 08/13/171999 Coping/Psychosocial Plan Of Care Reviewed With -- patient Plan of Care Review Progress improving -- OUTCOME EVALUATION NOTE: OUTCOME SUMMARY: Pt is A/O x4, VIVIANA, Carrie 11/27. Pt required around the clock PRN [...] with additional findings of pseudoaneurysm on R CHEMISTRY ASSOCIATE and bilateral anterior tibial artery occlusions. Was [...] an outpatient once discharged. Have patient call [phone] to set up an appointment. Follow-up: Dermatology will sign-off for now. Please do not hesitate to contact us if you have any questions orconcerns. Impression and Recommendations discussed with primary team on 08/13/2017. Karo Henderson MD Resident in Dermatology Section of Dermatology, Department of Surgery [facility] Pager [phone] Patient seen and evaluated with staff Auto Tech: Halima Cordero MD Section of Dermatology [facility] Level of Resident Supervision: Direct Supervision (The [...] ADLs]: Direct supervision Surveillance [continuous indirect monitoring]: tiat Sinha Patient-specific fall prevention interventions for sensory [...] Eyes on Surveillance [continuous indirect monitoring]: Purposeful roundingErnestine Patient-specific fall prevention interventions for sensory deficits [...] 2.5x80 5. Completion RLE angiogram 6. L CHEMISTRY ASSOCIATE angiogram 7. Mynx closure Active Non-Hospital Problems [...] home with home health ([facility] PT&OT) Pager: [phone] YASIR TELLO OT 08/12/2017 Occupational Therapy Rehabilitation [...] 2.5x80 5. Completion RLE angiogram 6. L CHEMISTRY ASSOCIATE angiogram 7. Mynx closure Past Medical History: [...] with 24/7 assistance and maximal services) Pager: [phone] NICHOLAS MORA, JESSIE 08/12/2017 Physical Therapy Rehabilitation Department Problem: Acute [...] sit/sit to supine -- Bed Mobility Goal, Hemphill Level independent -- Bed Mobility Goal, Outcome Achieved -- goal ongoing Goal: Gait Training Goal Stand Alone Therapy Goal Outcome: Ongoing (Interventions Implemented as Appropriate) 08/11/17 1310 08/12/17 1510 Gait Training Goal Gait Training Goal, Date Established 08/11/17 -- Gait Training Goal, Time to Achieve 5 - 7 days -- Gait Training Goal, Hemphill Level conditional independence -- Gait Training Goal, [...] days -- Transfer Training Goal, Activity Type wmx-wj-kkgfc/kdoni-au-icb -- Transfer Train Goal, Hemphill Level conditional independence -- Transfer Training Goal, [...] Outcome: Ongoing (Interventions Implemented as Appropriate) 08/08/17 230 Mutuality/Individual Preferences What Anxieties, Fears or Concerns [...] (Interventions Implemented as Appropriate) 08/07/17 1622 08/08/17 230 Discharge Needs Assessment Concerns To Be Addressed [...] Smith MD - 08/11/2017 2:52 PM EST [facility] Operative Note Patient Name: Gregory Hoang : [id number] MR#: [id number] Case Date: 08/11/2017 Surgeon: Surgeon(s) and Role: [...] 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 Plan of Care - Lawrence Gonzalez PT - 08/11/2017 1:19 PM EST Problem: [...] 2.5x80 5. Completion RLE angiogram 6. L CHEMISTRY ASSOCIATE angiogram 7. Mynx closure He is very [...] Anticipated Discharge Disposition: inpatient rehabilitation facility Pager: [phone] LAWRENCE GONZALEZ, PT 08/11/2017 Physical Therapy Rehabilitation [...] to sit/sit to supine Bed Mobility Goal, Hemphill Level independent Goal: Gait Training Goal Stand Alone Therapy Goal Outcome: Ongoing (Interventions Implemented as Appropriate) 08/11/17 1310 Gait Training Goal Gait Training Goal, Date Established 08/11/17 Gait Training Goal, Time to Achieve 5 - 7 days Gait Training Goal, Hemphill Level conditional independence Gait Training Goal, Assist [...] 7 days Transfer Training Goal, Activity Type eoy-fi-pmqzm/iwxrb-tt-yob Transfer Train Goal, Hemphill Level conditional independence Plan of Care - Annetta Sandoval RN - 08/11/2017 7:21 AM [...] Outcome: Ongoing (Interventions Implemented as Appropriate) 08/11/17 06 Restraint Interventions Safety Promotion/Fall Prevention activity supervised;fall prevention program maintained Goal: Infection Control Outcome: Ongoing (Interventions Implemented as Appropriate) 08/11/17657 Safety Interventions Isolation Precautions standard precautions maintained Infection Prevention environmental surveillance performed;rest/sleep promoted Problem: Skin Integrity Impairment, Risk/Actual (Adult) Goal: Skin Integrity/Wound Healing Patient will demonstrate the desired outcomes by discharge/transition of care. Outcome: Ongoing (Interventions Implemented as Appropriate) 08/11/17657 Skin Integrity Impairment, Risk/Actual (Adult) Skin Integrity/Wound Healing making progress toward outcome Problem: Pain, Acute (Adult) Goal: Acceptable Pain Control/Comfort Level Patient will demonstrate the desired outcomes by discharge/transition of care. Outcome: Ongoing (Interventions Implemented as Appropriate) 08/11/17657 Pain, Acute (Adult) Acceptable Pain Control/Comfort Level [...] call cabello within reach, Hourly rounding by RN/HOOP DRIVING MACHINE OPERATOR HELPER. Bed alarm / Chair alarm. ? Patient-specific [...] 04/05/2013 Hospitalizations Within the Past 30 Days: [facility] 07/20/2017 Anticipated Length Of Stay (If known): Expected Length of Hospitalization: 5-7 days2-3 days Current Decision-Making Capacity: Alert and oriented x 4 Advance Care Planning: on file Kisha Hoang [facility] [phone] Current Coping/Education/Information Needs: pt and spouse state [...] Health/Prescription Coverage: Primary Insurance: MEDICARE Secondary Insurance: [id number] Prescription Coverage: See above Preferred [facility]acy: [facility] Other: N/A Primary Care Provider: Lovely Vicente MD [phone] Patient/Caregiver Goals of Treatment: Patient plans to return home when medically ready Potential Needs for Transition of Care: Rehab/SNF: N/A Home Health: [facility]. DME: pt has a cane and [...] of care planning. Kaitlin Saha RN Pager: [phone] Plan of Care - Melba Jaramillo RN [...] Overview Goal: Plan of Care Review 08/08/17 6194 Coping/Psychosocial Plan Of Care Reviewed With patient [...] Patient Handling 08/07/17 0444 08/07/17 1100 08/07/17 1218 Positioning Body Position -- -- up in [...] 162 Activity Activity Type -- ambulated in matos;step/september in place;up in chair Optimize Tissue Perfusion [...] within reach;BADL personal routines maintained -- -- 08/07/171621 Functional Level Current Ambulation -- Transferring -- [...] right lower leg on Wednesday or Wednesday of week. Plan of Care - Mira Truong RN [...] call cabello within reach, Hourly rounding by RN/HOOP DRIVING MACHINE OPERATOR HELPER. Bed alarm / Chair alarm. Patient-specific fall [...] at bedside and MD TEAM Carrying pager [phone] contacted (via Radio page) and notified of [...] PA [facility] er Cardiology Dept [place], [place] [address] (Wo rk) 03/12/2022 Office Visit Cardiology Vitaliy Nobles MD [facility] CARDIOLOGY [place], [place] [address] (Wo rk) documented as of this encounter Procedures Procedure Name Priority Date/Time Associated Comments Diagnosis POCT GLUCOSE Routine 08/16/2017 7:28 AM Results f or this EST procedure are i n the results section. HEMOGRAM Routine 08/16/2017 5:08 AM Results f or this EST procedure are i n the results section. DIFFERENTIAL, Routine 08/16/2017 5:08 AM Results for this AUTOMATED EST procedure are i n the results section. PROTHROMBIN TIME Routine 08/16/2017 5:08 AM Resul ts for this EST procedure are i n the results section. CBC (WITH DIFF) Routine 08/16/2017 5:08 AM EST BASIC METABOLIC PANEL Routine 08/16/2017 5:08 AM Results for this (NON-FASTING) EST procedure are in the results section. POCT GLUCOSE Routine 08/16/2017 4:09 AM Results f or this EST procedure are i n the results section. POCT GLUCOSE Routine 08/15/2017 11:56 Results for this PM EST procedure are i n the results section. POCT GLUCOSE Routine 08/15/2017 8:05 PM Results f or this EST procedure are i n the results section. POCT GLUCOSE Routine 08/15/2017 4:50 PM Results f or this EST procedure are i n the results section. POCT GLUCOSE Routine 08/15/2017 12:04 Results for this PM EST procedure are i n the results section. POCT GLUCOSE Routine 08/15/2017 7:36 AM Results f or this EST procedure are i n the results section. HEMOGRAM Routine 08/15/2017 6:22 AM Results f or this EST procedure are i n the results section. DIFFERENTIAL, Routine 08/15/2017 6:22 AM Results for this AUTOMATED EST procedure are i n the results section. PROTHROMBIN TIME Routine 08/15/2017 6:22 AM Resul ts for this EST procedure are i n the results section. CBC (WITH DIFF) Routine 08/15/2017 6:22 AM EST BASIC METABOLIC PANEL Routine 08/15/2017 6:22 AM Results for this (NON-FASTING) EST procedure are in the results section. POCT GLUCOSE Routine 08/15/2017 4:33 AM Results f or this EST procedure are i n the results section. POCT GLUCOSE Routine 08/15/2017 12:12 Results for this AM EST procedure are i n the results section. POCT GLUCOSE Routine 08/14/2017 8:07 PM Results f or this EST procedure are i n the results section. POCT GLUCOSE Routine 08/14/2017 5:11 PM Results f or this EST procedure are i n the results section. POCT GLUCOSE Routine 08/14/2017 12:10 Results for this PM EST procedure are i n the results section. POCT GLUCOSE Routine 08/14/2017 8:07 AM Results f or this EST procedure are i n the results section. HEMOGRAM Routine 08/14/2017 4:52 AM Results f or this EST procedure are i n the results section. DIFFERENTIAL, Routine 08/14/2017 4:52 AM Results for this AUTOMATED EST procedure are i n the results section. PROTHROMBIN TIME Routine 08/14/2017 4:52 AM Resul ts for this EST procedure are i n the results section. CBC (WITH DIFF) Routine 08/14/2017 4:52 AM EST BASIC METABOLIC PANEL Routine 08/14/2017 4:52 AM Results for this (NON-FASTING) EST procedure are in the results section. POCT GLUCOSE Routine 08/14/2017 3:56 AM Results f or this EST procedure are i n the results section. POCT GLUCOSE Routine 08/13/2017 11:13 Results for this PM EST procedure are i n the results section. POCT GLUCOSE Routine 08/13/2017 8:08 PM Results f or this EST procedure are i n the results section. POCT GLUCOSE Routine 08/13/2017 4:02 PM Results f or this EST procedure are i n the results section. POCT GLUCOSE Routine 08/13/2017 11:31 Results for this AM EST procedure are i n the results section. POCT GLUCOSE Routine 08/13/2017 10:16 Results for this AM EST procedure are i n the results section. JULIAN, LEGS, MULTIPLE Routine 08/13/2017 7:42 AM Critical lower limb Results for this LEVELS EST ischemia procedure are i n the results section. POCT GLUCOSE Routine 08/13/2017 7:33 AM Results f or this EST procedure are i n the results section. HEMOGRAM Routine 08/13/2017 5:33 AM Results f or this EST procedure are i n the results section. DIFFERENTIAL, Routine 08/13/2017 5:33 AM Results for this AUTOMATED EST procedure are i n the results section. PROTHROMBIN TIME Routine 08/13/2017 5:33 AM Resul ts for this EST procedure are i n the results section. CBC (WITH DIFF) Routine 08/13/2017 5:33 AM EST BASIC METABOLIC PANEL Routine 08/13/2017 5:33 AM Results for this (NON-FASTING) EST procedure are in the results section. POCT GLUCOSE Routine 08/13/2017 4:29 AM Results f or this EST procedure are i n the results section. POCT GLUCOSE Routine 08/12/2017 11:28 Results for this PM EST procedure are i n the results section. POCT GLUCOSE Routine 08/12/2017 7:40 PM Results f or this EST procedure are i n the results section. POCT GLUCOSE Routine 08/12/2017 4:24 PM Results f or this EST procedure are i n the results section. POCT GLUCOSE Routine 08/12/2017 12:00 Results for this PM EST procedure are i n the results section. POCT GLUCOSE Routine 08/12/2017 7:25 AM Results f or this EST procedure are i n the results section. HEMOGRAM Routine 08/12/2017 6:29 AM Results f or this EST procedure are i n the results section. DIFFERENTIAL, Routine 08/12/2017 6:29 AM Results for this AUTOMATED EST procedure are i n the results section. PROTHROMBIN TIME Routine 08/12/2017 6:29 AM Resul ts for this EST procedure are i n the results section. CBC (WITH DIFF) Routine 08/12/2017 6:29 AM EST BASIC METABOLIC PANEL Routine 08/12/2017 6:29 AM Results for this (NON-FASTING) EST procedure are in the results section. POCT GLUCOSE Routine 08/12/2017 4:08 AM Results f or this EST procedure are i n the results section. POCT GLUCOSE Routine 08/12/2017 12:17 Results for this AM EST procedure are i n the results section. POCT GLUCOSE Routine 08/11/2017 8:52 PM Results f or this EST procedure are i n the results section. POCT GLUCOSE Routine 08/11/2017 5:59 PM Results f or this EST procedure are i n the results section. POCT GLUCOSE Routine 08/11/2017 4:08 PM Results f or this EST procedure are i n the results section. (MSURG) DRESSING 08/11/2017 2:01 PM open toe amp site CHANGE (FOR OTHER EST THAN IVAN) UNDER ANES. (WRVU 0.86) (MSURG) DRESSING Routine 08/11/2017 2:01 PM CHANGE (FOR OTHER EST THAN IVAN) UNDER ANES. POCT GLUCOSE Routine 08/11/2017 12:04 Results for this PM EST procedure are i n the results section. POCT GLUCOSE Routine 08/11/2017 7:31 AM Results f or this EST procedure are i n the results section. HEMOGRAM Routine 08/11/2017 6:16 AM Results f or this EST procedure are i n the results section. DIFFERENTIAL, Routine 08/11/2017 6:16 AM Results for this AUTOMATED EST procedure are i n the results section. PROTHROMBIN TIME Routine 08/11/2017 6:16 AM Resul ts for this EST procedure are i n the results section. CBC (WITH DIFF) Routine 08/11/2017 6:16 AM EST BASIC METABOLIC PANEL Routine 08/11/2017 6:16 AM Results for this (NON-FASTING) EST procedure are in the results section. POCT GLUCOSE Routine 08/11/2017 4:07 AM Results f or this EST procedure are i n the results section. POCT GLUCOSE Routine 08/10/2017 11:59 Results for this PM EST procedure are i n the results section. POCT GLUCOSE Routine 08/10/2017 8:12 PM Results f or this EST procedure are i n the results section. POCT GLUCOSE Routine 08/10/2017 4:42 PM Results f or this EST procedure are i n the results section. HEMOGRAM Timed 08/10/2017 2:30 PM Results f or this EST procedure are i n the results section. DIFFERENTIAL, Timed 08/10/2017 2:30 PM Results for this AUTOMATED EST procedure are i n the results section. CBC (WITH DIFF) Timed 08/10/2017 2:30 PM EST POCT GLUCOSE Routine 08/10/2017 1:50 PM Results f or this EST procedure are i n the results section. POCT GLUCOSE Routine 08/10/2017 11:21 Results for this AM EST procedure are i n the results section. HEMOGRAM STAT 08/10/2017 10:28 Results for this AM EST procedure are i n the results section. DIFFERENTIAL, STAT 08/10/2017 10:28 Results fo r this AUTOMATED AM EST procedure are i n the results section. CBC (WITH DIFF) STAT 08/10/2017 10:28 AM EST VS ARTERIOGRAM LOWER Routine 08/10/2017 9:54 AM R esults for this EXTREMITY VASCULAR EST procedure are in SURGERY the results section. HEMOGRAM Routine 08/10/2017 5:50 AM Results f or this EST procedure are i n the results section. DIFFERENTIAL, Routine 08/10/2017 5:50 AM Results for this AUTOMATED EST procedure are i n the results section. PROTHROMBIN TIME Routine 08/10/2017 5:50 AM Resul ts for this EST procedure are i n the results section. CBC (WITH DIFF) Routine 08/10/2017 5:50 AM EST BASIC METABOLIC PANEL Routine 08/10/2017 5:50 AM Results for this (NON-FASTING) EST procedure are in the results section. POCT GLUCOSE Routine 08/10/2017 4:01 AM Results f or this EST procedure are i n the results section. POCT GLUCOSE Routine 08/10/2017 2:01 AM Results f or this EST procedure are i n the results section. POCT GLUCOSE Routine 08/09/2017 11:42 Results for this PM EST procedure are i n the results section. POCT GLUCOSE Routine 08/09/2017 8:55 PM Results f or this EST procedure are i n the results section. APTT STAT 08/09/2017 6:42 PM Results f or this EST procedure are i n the results section. POCT GLUCOSE Routine 08/09/2017 4:41 PM Results f or this EST procedure are i n the results section. POCT GLUCOSE Routine 08/09/2017 12:29 Results for this PM EST procedure are i n the results section. POCT GLUCOSE Routine 08/09/2017 9:59 AM Results f or this EST procedure are i n the results section. SPECIMEN TO PATHOLOGY Routine 08/09/2017 8:41 AM Results for this EST procedure are i n the results section. SURGICAL PATHOLOGY Routine 08/09/2017 8:40 AM Res ults for this REPORT EST procedure are i n the results section. ANAEROBIC CULTURE Routine 08/09/2017 8:30 AM Resu lts for this EST procedure are i n the results section. ABSCESS/WOUND ASP Routine 08/09/2017 8:30 AM CULTURE, AEROBIC AND EST ANAEROBIC ABSCESS/WOUND Routine 08/09/2017 8:30 AM Results for this ASPIRATE CULTURE EST procedure a re in the results section. POCT GLUCOSE Routine 08/09/2017 4:28 AM Results f or this EST procedure are i n the results section. ABORH RECHECK STATUS Routine 08/09/2017 1:10 AM R esults for this EST procedure are i n the results section. HEMOGRAM Routine 08/09/2017 1:10 AM Results f or this EST procedure are i n the results section. DIFFERENTIAL, Routine 08/09/2017 1:10 AM Results for this AUTOMATED EST procedure are i n the results section. ABO/RH TYPING Routine 08/09/2017 1:10 AM Results for this EST procedure are i n the results section. APTT STAT 08/09/2017 1:10 AM Results f or this EST procedure are i n the results section. PROTHROMBIN TIME Routine 08/09/2017 1:10 AM Resul ts for this EST procedure are i n the results section. CBC (WITH DIFF) Routine 08/09/2017 1:10 AM EST ANTIBODY SCREEN Routine 08/09/2017 1:10 AM Result s for this EST procedure are i n the results section. TYPE AND SCREEN Routine 08/09/2017 1:10 AM ([facility]/CGP/SHANDA) EST BASIC METABOLIC PANEL Routine 08/09/2017 1:10 AM Results for this (NON-FASTING) EST procedure are in the results section. POCT GLUCOSE Routine 08/09/2017 12:05 Results for this AM EST procedure are i n the results section. POCT GLUCOSE Routine 08/08/2017 7:36 PM Results f or this EST procedure are i n the results section. POCT GLUCOSE Routine 08/08/2017 6:23 PM Results f or this EST procedure are i n the results section. APTT STAT 08/08/2017 6:00 PM Results f or this EST procedure are i n the results section. POCT GLUCOSE Routine 08/08/2017 4:42 PM Results f or this EST procedure are i n the results section. POCT GLUCOSE Routine 08/08/2017 4:01 PM Results f or this EST procedure are i n the results section. POCT GLUCOSE Routine 08/08/2017 11:51 Results for this AM EST procedure are i n the results section. APTT STAT 08/08/2017 10:27 Results for this AM EST procedure are i n the results section. POCT GLUCOSE Routine 08/08/2017 8:02 AM Results f or this EST procedure are i n the results section. HEMOGRAM Routine 08/08/2017 4:51 AM Results f or this EST procedure are i n the results section. DIFFERENTIAL, Routine 08/08/2017 4:51 AM Results for this AUTOMATED EST procedure are i n the results section. APTT Routine 08/08/2017 4:51 AM Results f or this EST procedure are i n the results section. PROTHROMBIN TIME Routine 08/08/2017 4:51 AM Resul ts for this EST procedure are i n the results section. CBC (WITH DIFF) Routine 08/08/2017 4:51 AM EST BASIC METABOLIC PANEL Routine 08/08/2017 4:51 AM Results for this (NON-FASTING) EST procedure are in the results section. POCT GLUCOSE Routine 08/08/2017 4:20 AM Results f or this EST procedure are i n the results section. POCT GLUCOSE Routine 08/07/2017 11:11 Results for this PM EST procedure are i n the results section. APTT STAT 08/07/2017 10:18 Results for this PM EST procedure are i n the results section. POCT GLUCOSE Routine 08/07/2017 8:10 PM Results f or this EST procedure are i n the results section. POCT GLUCOSE Routine 08/07/2017 5:27 PM Results f or this EST procedure are i n the results section. POCT GLUCOSE Routine 08/07/2017 3:29 PM Results f or this EST procedure are i n the results section. APTT STAT 08/07/2017 2:50 PM Results f or this EST procedure are i n the results section. POCT GLUCOSE Routine 08/07/2017 2:23 PM Results f or this EST procedure are i n the results section. POCT GLUCOSE Routine 08/07/2017 12:08 Results for this PM EST procedure are i n the results section. HEMOGRAM Routine 08/07/2017 7:30 AM Results f or this EST procedure are i n the results section. DIFFERENTIAL, Routine 08/07/2017 7:30 AM Results for this AUTOMATED EST procedure are i n the results section. CBC (WITH DIFF) Routine 08/07/2017 7:30 AM EST BASIC METABOLIC PANEL Routine 08/07/2017 7:30 AM Results for this (NON-FASTING) EST procedure are in the results section. POCT GLUCOSE Routine 08/07/2017 7:27 AM Results f or this EST procedure are i n the results section. APTT Routine 08/07/2017 7:04 AM Results f or this EST procedure are i n the results section. PROTHROMBIN TIME Routine 08/07/2017 7:04 AM Resul ts for this EST procedure are i n the results section. POCT GLUCOSE Routine 08/07/2017 4:03 AM Results f or this EST procedure are i n the results section. POCT GLUCOSE Routine 08/07/2017 12:04 Results for this AM EST procedure are i n the results section. POCT GLUCOSE Routine 08/06/2017 7:56 PM Results f or this EST procedure are i n the results section. TCPO2 Routine 08/06/2017 2:32 PM Critical lower limb Re sults for this EST ischemia procedure are in Ischemic foot the results section. documented in this encounter Results POCT Glucose (08/16/2017 7:28 AM EST) P athologist Signature POC Glucose 160 65 - 199 [facility] mg/dL [facility] Comment: Supplemental ranges: <140 mg/dL before meals <180 mg/dL all other times of the day Specimen Anatomical Collection Method Collection Time Receive d Time (Source) Location / / Volume Laterality Blood specimen 08/16/2017 7:28 AM 018 7:28 (specimen) EST AM EST Yonathan Smith MD POINT OF CARE TEST ORDERABLE S Performing Organization Address City/State/[place] [address] (ABNORMAL) Differential, Automated (08/16/2017 5:08 AM EST) Patholo gist Method Time Signature Neutrophils % 73.9 % [facility] Neutr Abs (ANC) 5.37 1.70 - [facility] 6.[address] [facility] x10(3)/[facility] LABORATORY Lymphocytes % 10.1 % [facility] Lymphocytes Abs 0.7 (L) 0.9 - 3.2 [facility] x10(3)/[facility] LABORATORY Monocytes % 10.1 % [facility] Monocyte Abs 0.7 0.3 - 0.9 [facility] x10(3)/[facility] LABORATORY Eosinophils % 5.1 % [facility] Eosinophils Abs 0.4 0.0 - 0.4 [facility] x10(3)/[facility] LABOR[facility]ORY Basophils % 0.4 % [facility] Basophils Abs 0.0 0.0 - 0.1 [facility] x10(3)/[facility] LABORATORY Immature Gran % 0.40 % [facility] Comment: Immature granulocytes(IG's)percentage an d absolute count will include metamyelocytes, myelocytes, and promyelo cytes. Blood smears from CBCs yielding IG's will be scanned manually for concor dance. If this scan disagrees with the automated IG or if promyelocytes are not ed, a manual differential will be performed. Melisa Gran Abs 0.03 0.00 - 0.04 x10(3)/[facility] MAR Y [facility] Specimen Anatomical Collection Method Collection Time Receive d Time (Source) Location / / Volume Laterality Blood specimen 08/16/2017 5:08 AM 018 5:20 (specimen) EST AM EST Resulting Agency Comment Spec In Lab Yonathan Smith MD HEMATOLOGY ORDERABLES Performing Organization Address City/State/[place] [address] (ABNORMAL) Hemogram (08/16/2017 5:08 AM EST) Analysis Performed At Patho logist Time Signature WBC 7.3 4.0 - 9.5 [facility] x10(3)/[facility] LABORATORY RBC 3.36 (L) 4.58 - [facility] 5.[address] [facility] x10(6)/[facility] LABORATORY Hemoglobin 9.7 (L) 13.7 - [facility] 16.[facility] gm/dL [facility] Hematocrit 30.3 (L) 40.5 - [facility] 48.5 % [facility] MCV 90.2 82.9 - [facility] 93.1 [facility] LABORATORY MCH 28.9 27.5 - [facility] 32.1 pg [facility] MCHC 32.0 32.0 - [facility] gm/dL [facility] Platelets 282 145 - 357 [facility] x10(3)/[facility] LABORATORY RDWSD 53.9 (H) 36.0 - [facility] 45.0 [facility] RDWCV 16.5 (H) 11.4 - [facility] 13.8 % [facility] MPV 9.0 7.6 - 12.9 [facility] LABORATORY nRBC % Auto 0.0 % [facility] nRBC Abs Auto 0.000 0.000 [facility] [facility] x10(3)/[facility] LABORATORY Specimen Anatomical Collection Method Collection Time Receive d Time (Source) Location / / Volume Laterality Blood specimen 08/16/2017 5:08 AM 018 5:20 (specimen) EST AM EST Resulting Agency Comment Spec In Lab Yonathan Smith MD HEMATOLOGY ORDERABLES Performing Organization Address City/State/[place] [address] (ABNORMAL) Basic Metabolic Panel (non-fasting) (08/16/2017 5:08 AM EST) athologist Signature Glucose Lvl 141 65 - 199 [facility] mg/dL [facility] Comment: Diabetes: >=200 mg/dL plus symp toms BUN 29 (H) 10 - 20 mg/dL [facility] Creatinine 1.25 0.80 - 1.50 mg/dL [facility] Sodium 140 135 - 145 mmol/L [facility] Potassium 4.5 3.5 - 5.0 mmol/L [facility] Comment: Please note: ??Patients with WBC >100,00 0 may have falsely elevated Potassium levels. ??For accurate Potassium quantif ication in these patients send serum separator tube (gold top) for subsequent determinations. ??Contact the Clinical Chemistry Laboratory if there are any qu estions. Chloride 99 98 - 107 mmol/L [facility] CO2 28 22 - 31 mmol/L [facility] Anion Gap 13 5 - 15 mmol/L [facility] Calcium 8.7 8.5 - 10.5 mg/dL [facility] Estimated GFR 57 (L) >=60 [facility] Comment: The reported eGFR should be multiplied b y 1.2 for patients. The MDRD is not an appropriate measure o f renal function for patients with body mass extremes or in patients with acute kidney failure. http://YinYangMap/DHnkdep http://YinYangMap/DHMCnkf Specimen Anatomical Collection Method Collection Time Receive d Time (Source) Location / / Volume Laterality Blood specimen 08/16/2017 5:08 AM 018 5:20 (specimen) EST AM EST Resulting Agency Comment Spec In Lab Yonathan Smith MD CHEMISTRY ORDERABLES Performing Organization Address City/State/[place] [address] (ABNORMAL) Prothrombin Time (08/16/2017 5:08 AM EST) athologist Signature PT 25.2 (H) 11.8 - 14.0 [facility] LABORATORY INR 2.3 (H) 0.9 - 1.1 [facility] Comment: An INR <2.0 indicates [...] Organization Address City/State/ZIP Code Phon e Number [address] POCT Glucose (08/16/2017 4:09 AM EST) athologist Signature POC Glucose 147 65 - 199 [facility] mg/dL [facility] Comment: Supplemental ranges: <140 mg/dL before meals <180 mg/dL all other times of the day Specimen Anatomical Collection Method Collection Time Receive d Time (Source) Location / / Volume Laterality Blood specimen 08/16/2017 4:09 AM 018 4:09 (specimen) EST AM EST Yonathan Smith MD POINT OF CARE TEST ORDERABLE S Performing Organization Address City/[facility]/ZIP Code Phon e Number [address] POCT Glucose (08/15/2017 11:56 PM EST) athologist Signature POC Glucose 176 65 - 199 [facility] mg/dL [facility] Comment: Supplemental ranges: <140 mg/dL before meals <180 mg/dL all other times of the day Specimen Anatomical Collection Method Collection Time Receive d Time (Source) Location / / Volume Laterality Blood specimen 08/15/2017 11:56 8 (specimen) PM EST 11:56 PM EST Yonathan Smith MD POINT OF CARE TEST ORDERABLE S Performing Organization Address City/State/ZIP [place] [address] POCT Glucose (08/15/2017 8:05 PM EST) athologist Signature POC Glucose 136 65 - 199 [facility] mg/dL [facility] Comment: Supplemental ranges: <140 mg/dL before meals <180 mg/dL all other times of the day Specimen Anatomical Collection Method Collection Time Receive d Time (Source) Location / / Volume Laterality Blood specimen 08/15/2017 8:05 PM 018 8:05 (specimen) EST PM EST Yonathan Smith MD POINT OF CARE TEST ORDERABLE S Performing Organization Address City/State/ZIP [place] [address] (ABNORMAL) POCT Glucose (08/15/2017 4:50 PM EST) athologist Signature POC Glucose 232 (H) 65 - 199 [place] mg/dL [facility] Comment: Supplemental ranges: <140 mg/dL before meals <180 mg/dL all other times of the day Specimen Anatomical Collection Method Collection Time Receive d Time (Source) Location / / Volume Laterality Blood specimen 08/15/2017 4:50 PM 018 4:50 (specimen) EST PM EST Yonathan Smith MD POINT OF CARE TEST ORDERABLE S Performing Organization Address City/State/ZIP [place] [address] POCT Glucose (08/15/2017 12:04 PM EST) athologist Signature POC Glucose 135 65 - 199 [place] mg/dL [facility] Comment: Supplemental ranges: <140 mg/dL before meals <180 mg/dL all other times of the day Specimen Anatomical Collection Method Collection Time Receive d Time (Source) Location / / Volume Laterality Blood specimen 08/15/2017 12:04 8 (specimen) PM EST 12:04 PM EST Yonathan Smith MD POINT OF CARE TEST ORDERABLE S Performing Organization Address City/State/ZIP [place] [address] POCT Glucose (08/15/2017 7:36 AM EST) athologist Signature POC Glucose 124 65 - 199 [place] mg/dL [facility] Comment: Supplemental ranges: <140 mg/dL before meals <180 mg/dL all other times of the day Specimen Anatomical Collection Method Collection Time Receive d Time (Source) Location / / Volume Laterality Blood specimen 08/15/2017 7:36 AM 018 7:36 (specimen) EST AM EST Yonathan Smith MD POINT OF CARE TEST ORDERABLE S Performing Organization Address City/State/[place] [address] (ABNORMAL) Differential, Automated (08/15/2017 6:22 AM EST) [facility] Method Time Signature Neutrophils % 76.1 % [facility] Neutr Abs (ANC) 6.62 (H) 1.70 - [facility] 6.[address] [facility] x10(3)/[facility] L LABORATORY Lymphocytes % 9.3 % [facility] Lymphocytes Abs 0.8 (L) 0.9 - 3.2 [facility] x10(3)/[facility] LABORATORY Monocytes % 9.4 % [facility] Monocyte Abs 0.8 0.3 - 0.9 [facility] x10(3)/[facility] LABORATORY Eosinophils % 4.0 % [facility] Eosinophils Abs 0.4 0.0 - 0.4 [facility] x10(3)/[facility] LABORATORY Basophils % 0.6 % [facility] Basophils Abs 0.0 0.0 - 0.1 [facility] x10(3)/[facility] LABORATORY Immature Gran % 0.60 % [facility] Comment: Immature granulocytes(IG's)percentage an d absolute count will include metamyelocytes, myelocytes, and promyelo cytes. Blood smears from CBCs yielding IG's will be scanned manually for concor dance. If this scan disagrees with the automated IG or if promyelocytes are not ed, a manual differential will be performed. Melisa Gran Abs 0.05 (H) 0.00 - 0.04 x10(3)/[facility] LABORATORY Specimen Anatomical Collection Method Collection Time Receive d Time (Source) Location / / Volume Laterality Blood specimen 08/15/2017 6:22 AM 018 6:33 (specimen) EST AM EST Resulting Agency Comment Spec In Lab Yonathan Smith MD HEMATOLOGY ORDERABLES Performing Organization Address City/State/[place] [address] (ABNORMAL) Hemogram (08/15/2017 6:22 AM EST) Analysis Performed At Patho logist Time Signature WBC 8.7 4.0 - 9.5 [facility] x[facility](3[facility] LABORATORY RBC 3.21 (L) 4.58 - [place] [address] [facility] x10(6)/[facility] LABORATORY Hemoglobin 9.1 (L) 13.7 - [facility] 16.[facility]m/dL [facility] Hematocrit 29.0 (L) 40.5 - [facility] 48.5 % [facility] MCV 90.3 82.9 - [facility] 93.1 [facility] LABORATORY MCH 28.3 27.5 - [place] 32.1 pg [facility] MCHC 31.4 (L) 32.0 - [place] 35.7 gm/dL [facility] Platelets 254 145 - 357 [facility] x10(3)/[facility] LABORATORY RDWSD 53.9 (H) 36.0 - [place] 45.0 [facility] LABORATORY RDWCV 16.3 (H) 11.4 - [facility] 13.8 % [facility] MPV 8.8 7.6 - 12.9 [facility] LABORATORY nRBC % Auto 0.0 % [facility] nRBC Abs Auto 0.000 0.000 - [facility] [address] [facility] x10(3)/[facility] LABORATORY Specimen Anatomical Collection Method Collection Time Receive d Time (Source) Location / / Volume Laterality Blood specimen 08/15/2017 6:22 AM 018 6:33 (specimen) EST AM EST Resulting Agency Comment Spec In Lab Yonathan Smith MD HEMATOLOGY ORDERABLES Performing Organization Address City/State/ZIP Code Phon e Number [place] [id number] [address] (ABNORMAL) Basic Metabolic Panel (non-fasting) (08/15/2017 6:22 AM EST) P athologist Signature Glucose Lvl 118 65 - 199 [facility] mg/dL [facility] Comment: Diabetes: >=200 mg/dL plus symp toms BUN 27 (H) 10 - 20 mg/dL [facility] LABOR[facility]ORY Creatinine 1.12 0.80 - 1.50 mg/dL [facility] Sodium 138 135 - 145 mmol/L [facility] Potassium 4.6 3.5 - 5.0 mmol/L [facility] Comment: Please note: ??Patients with WBC >100,00 0 may have falsely elevated Potassium levels. ??For accurate Potassium quantif ication in these patients send serum separator tube (gold top) for subsequent determinations. ??Contact the Clinical Chemistry Laboratory if there are any qu estions. Chloride 98 98 - 107 mmol/L [facility] CO2 29 22 - 31 mmol/L [facility] Anion Gap 11 5 - 15 mmol/L [facility] Calcium 8.8 8.5 - 10.5 mg/dL [facility] Estimated GFR >60 >=60 [facility] Comment: The reported eGFR should be multiplied b y 1.2 for patients. The MDRD is not an appropriate measure o f renal function for patients with body mass extremes or in patients with acute kidney failure. http://YinYangMap/DHnkdep [email or web address] Specimen Anatomical Collection Method Collection Time Receive d Time (Source) Location / / Volume Laterality Blood specimen 08/15/2017 6:22 AM 018 6:33 (specimen) EST AM EST Resulting Agency Comment Spec In Lab Yonathan Smith MD CHEMISTRY ORDERABLES Performing Organization Address City/State/[place] [address] (ABNORMAL) Prothrombin Time (08/15/2017 6:22 AM EST) athologist Signature PT 21.9 (H) 11.8 - 14.0 [facility] LABORATORY INR 1.9 (H) 0.9 - 1.1 [facility] Comment: An INR <2.0 indicates [...] Organization Address City/State/ZIP Code Phon e Number [address] POCT Glucose (08/15/2017 4:33 AM EST) athologist Signature POC Glucose 164 65 - 199 [facility]dL [facility] Comment: Supplemental ranges: <140 mg/dL before meals <180 mg/dL all other times of the day Specimen Anatomical Collection Method Collection Time Receive d Time (Source) Location / / Volume Laterality Blood specimen 08/15/2017 4:33 AM 018 4:33 (specimen) EST AM EST Yonathan Smith MD POINT OF CARE TEST ORDERABLE S Performing Organization Address City/[facility]/ZIP Code Phon e Number [address] POCT Glucose (08/15/2017 12:12 AM EST) athologist Signature POC Glucose 89 65 - 199 [facility] Comment: Supplemental ranges: <140 mg/dL before meals <180 mg/dL all other times of the day Specimen Anatomical Collection Method Collection Time Receive d Time (Source) Location / / Volume Laterality Blood specimen 08/15/2017 12:12 8 (specimen) AM EST 12:12 AM EST Yonathan Smith MD POINT OF CARE TEST ORDERABLE S Performing Organization Address City/State/ZIP [place] [address] (ABNORMAL) POCT Glucose (08/14/2017 8:07 PM EST) athologist Signature POC Glucose 204 (H) 65 - 199 [facility] mg/dL [facility] Comment: Supplemental ranges: <140 mg/dL before meals <180 mg/dL all other times of the day Specimen Anatomical Collection Method Collection Time Receive d Time (Source) Location / / Volume Laterality Blood specimen 08/14/2017 8:07 PM 018 8:07 (specimen) EST PM EST Yonathan Smith MD POINT OF CARE TEST ORDERABLE S Performing Organization Address City/State/ZIP Code Phon e Number [address] POCT Glucose (08/14/2017 5:11 PM EST) athologist Signature POC Glucose 174 65 - 199 [facility] mg/dL [facility] Comment: Supplemental ranges: <140 mg/dL before meals <180 mg/dL all other times of the day Specimen Anatomical Collection Method Collection Time Receive d Time (Source) Location / / Volume Laterality Blood specimen 08/14/2017 5:11 PM 018 5:11 (specimen) EST PM EST Yonathan Smith MD POINT OF CARE TEST ORDERABLE S Performing Organization Address City/State/ZIP [place] [address] POCT Glucose (08/14/2017 12:10 PM EST) athologist Signature POC Glucose 141 65 - 199 [facility]/dL [facility] Comment: Supplemental ranges: <140 mg/dL before meals <180 mg/dL all other times of the day Specimen Anatomical Collection Method Collection Time Receive d Time (Source) Location / / Volume Laterality Blood specimen 08/14/2017 12:10 8 (specimen) PM EST 12:10 PM EST Yonathan Smith MD POINT OF CARE TEST ORDERABLE S Performing Organization Address City/State/ZIP [place] [address] POCT Glucose (08/14/2017 8:07 AM EST) P athologist Signature POC Glucose 158 65 - 199 [facility] mg/dL [facility] Comment: Supplemental ranges: <140 mg/dL before meals <180 mg/dL all other times of the day Specimen Anatomical Collection Method Collection Time Receive d Time (Source) Location / / Volume Laterality Blood specimen 08/14/2017 8:07 AM 018 8:07 (specimen) EST AM EST Yonathan Smith MD POINT OF CARE TEST ORDERABLE S Performing Organization Address City/State/Z[place] [address] (ABNORMAL) Differential, Automated (08/14/2017 4:52 AM EST) Patholo gist Method Time Signature Neutrophils % 78.6 % [facility] Neutr Abs (ANC) 7.70 (H) 1.70 - [facility] 6.[address] [facility] x10(3)/[facility] L LABORATORY Lymphocytes % 7.8 % [facility] Lymphocytes Abs 0.8 (L) 0.9 - 3.2 [facility] x10(3)/[facility] LABORATORY Monocytes % 8.8 % [facility] Monocyte Abs 0.9 0.3 - 0.9 [facility] x10(3)/[facility] LABORATORY Eosinophils % 4.0 % [facility] Eosinophils Abs 0.4 0.0 - 0.4 [facility] x10(3)/[facility] LABORATORY Basophils % 0.5 % [facility] Basophils Abs 0.0 0.0 - 0.1 [facility] x10(3)/[facility] LABORATORY Immature Gran % 0.30 % [facility] Comment: Immature granulocytes(IG's)percentage an d absolute count will include metamyelocytes, myelocytes, and promyelo cytes. Blood smears from CBCs yielding IG's will be scanned manually for concor dance. If this scan disagrees with the automated IG or if promyelocytes are not ed, a manual differential will be performed. Melisa Gran Abs 0.03 0.00 - 0.04 x10(3)/[facility] MAR Y [facility] LABORATORY Specimen Anatomical Collection Method Collection Time Receive d Time (Source) Location / / Volume Laterality Blood specimen 08/14/2017 4:52 AM 018 5:08 (specimen) EST AM EST Resulting Agency Comment Spec In Lab Yonathan Smith MD HEMATOLOGY ORDERABLES Performing Organization Address City/State/Z[place] [address] (ABNORMAL) Hemogram (08/14/2017 4:52 AM EST) Analysis Performed At Patho logist Time Signature WBC 9.8 (H) 4.0 - 9.5 [facility] x10(3)/[facility] LABORATORY RBC 3.32 (L) 4.58 [facility] [facility] x10(6)/[facility] LABORATORY Hemoglobin 9.5 (L) 13.7 - [facility] gm/dL [facility] Hematocrit 30.3 (L) 40.5 - [facility] 48.5 % [facility] MCV 91.3 82.9 - [facility] 93.1 [facility] LABORATORY MCH 28.6 27.5 - [facility] 32.1 pg [facility]ATORY MCHC 31.4 (L) 32.0 - [facility]7 gm/dL [facility] Platelets 263 145 - 357 [facility] x10(3)/[facility] LABORATORY RDWSD 54.8 (H) 36.0 - [facility] 45.0 [facility] LABORATORY RDWCV 16.5 (H) 11.4 - [facility] 13.8 % [facility] LABORATORY MPV 9.1 7.6 - 12.9 [facility] LABORATORY nRBC % Auto 0.0 % [facility] nRBC Abs Auto 0.000 0.000 - [facility] [address] [facility] x10(3)/[facility] LABORATORY Specimen Anatomical Collection Method Collection Time Receive d Time (Source) Location / / Volume Laterality Blood specimen 08/14/2017 4:52 AM 018 5:08 (specimen) EST AM EST Resulting Agency Comment Spec In Lab Yonathan Smith MD HEMATOLOGY ORDERABLES Performing Organization Address City/[facility]/ZIP [place] [address] (ABNORMAL) Prothrombin Time (08/14/2017 4:52 AM EST) athologist Signature PT 18.8 (H) 11.8 - 14.0 [facility] LABORATORY INR 1.6 (H) 0.9 - 1.1 [facility] Comment: An INR <2.0 indicates [...] Organization Address City/State/ZIP [place] [address] (ABNORMAL) Basic Metabolic Panel (non-fasting) (08/14/2017 4:52 AM EST) athologist Signature Glucose Lvl 135 65 - 199 [facility] mg/dL [facility] Comment: Diabetes: >=200 mg/dL plus symp toms BUN 25 (H) 10 - 20 mg/dL [facility] LABORATORY Creatinine 1.36 0.80 - 1.50 mg/dL [facility]OR[facility]ORY Sodium 141 135 - 145 mmol/L [facility] Potassium 4.8 3.5 - 5.0 mmol/L [facility] Comment: Please note: ??Patients with WBC >100,00 0 may have falsely elevated Potassium levels. ??For accurate Potassium quantif ication in these patients send serum separator tube (gold top) for subsequent determinations. ??Contact the Clinical Chemistry Laboratory if there are any qu estions. Chloride 100 98 - 107 mmol/L [facility] CO2 28 22 - 31 mmol/L [facility] Anion Gap 13 5 - 15 mmol/L [facility]ORY Calcium 8.5 8.5 - 10.5 mg/dL [facility] Estimated GFR 52 (L) >=60 [facility] Comment: The reported eGFR should be multiplied b y 1.2 for patients. The MDRD is not an appropriate measure o f renal function for patients with body mass extremes or in patients with acute kidney failure. http://YinYangMap/DHnkdep http://YinYangMap/DHMCnkf Specimen Anatomical Collection Method Collection Time Receive d Time (Source) Location / / Volume Laterality Blood specimen 08/14/2017 4:52 AM 018 5:08 (specimen) EST AM EST Resulting Agency Comment Spec In Lab Yonathan Smith MD CHEMISTRY ORDERABLES Performing Organization Address City/[facility]/ZIP Code Phon e Number [address] POCT Glucose (08/14/2017 3:56 AM EST) athologist Signature POC Glucose 135 65 - 199 [facility]/dL [facility] Comment: Supplemental ranges: <140 mg/dL before meals <180 mg/dL all other times of the day Specimen Anatomical Collection Method Collection Time Receive d Time (Source) Location / / Volume Laterality Blood specimen 08/14/2017 3:56 AM 018 3:56 (specimen) EST AM EST Yonathan Smith MD POINT OF CARE TEST ORDERABLE S Performing Organization Address City/[facility]/ZIP [facility] Phon e Number [address] POCT Glucose (08/13/2017 11:13 PM EST) athologist Signature POC Glucose 118 65 - 199 [facility] mg/dL [facility] Comment: Supplemental ranges: <140 mg/dL before meals <180 mg/dL all other times of the day Specimen Anatomical Collection Method Collection Time Receive d Time (Source) Location / / Volume Laterality Blood specimen 08/13/2017 11:13 8 (specimen) PM EST 11:13 PM EST Yonathan Smith MD POINT OF CARE TEST ORDERABLE S Performing Organization Address City/State/ZIP [place] [address] (ABNORMAL) POCT Glucose (08/13/2017 8:08 PM EST) athologist Signature POC Glucose 204 (H) 65 - 199 [place] mg/dL [facility] Comment: Supplemental ranges: <140 mg/dL before meals <180 mg/dL all other times of the day Specimen Anatomical Collection Method Collection Time Receive d Time (Source) Location / / Volume Laterality Blood specimen 08/13/2017 8:08 PM 018 8:08 (specimen) EST PM EST Yonathan Smith MD POINT OF CARE TEST ORDERABLE S Performing Organization Address City/State/ZIP [place] [address] POCT Glucose (08/13/2017 4:02 PM EST) athologist Signature POC Glucose 145 65 - 199 [place] mg/dL [facility] Comment: Supplemental ranges: <140 mg/dL before meals <180 mg/dL all other times of the day Specimen Anatomical Collection Method Collection Time Receive d Time (Source) Location / / Volume Laterality Blood specimen 08/13/2017 4:02 PM 018 4:02 (specimen) EST PM EST Yonathan Smith MD POINT OF CARE TEST ORDERABLE S Performing Organization Address City/State/ZIP [place] [address] POCT Glucose (08/13/2017 11:31 AM EST) athologist Signature POC Glucose 179 65 - 199 [place] mg/dL [facility] Comment: Supplemental ranges: <140 mg/dL before meals <180 mg/dL all other times of the day Specimen Anatomical Collection Method Collection Time Receive d Time (Source) Location / / Volume Laterality Blood specimen 08/13/2017 11:31 8 (specimen) AM EST 11:31 AM EST Yonathan Smith MD POINT OF CARE TEST ORDERABLE S Performing Organization Address City/State/ZIP [place] [address] (ABNORMAL) POCT Glucose (08/13/2017 10:16 AM EST) P athologist Signature POC Glucose 211 (H) 65 - 199 [facility]/dL [facility] Comment: Supplemental ranges: <140 mg/dL before meals <180 mg/dL all other times of the day Specimen Anatomical Collection Method Collection Time Receive d Time (Source) Location / / Volume Laterality Blood specimen 08/13/2017 10:16 8 (specimen) AM EST 10:16 AM EST Yonathan Smith MD POINT OF CARE TEST ORDERABLE S Performing Organization Address City/[facility]/ZIP [place] [address] JULIAN, legs, multiple levels (08/13/2017 7:42 AM EST) Component Value Ref Test Analysis Performed At Patholo gist Range Method Time Signature VB Text Department: Vascular Surgery Lab VASCUBASE Report Patient: [id number] (GREGORY HOANG) CPT: 04604 ICD10: I99.8 Referring Physician: YONATHAN SMITH ?? Indications: s/p R 1,2,3 toe amps with red left foot, need n ew baseline Diabetes mellitus: yes ICD10 Diagnosis Code: I99.8 Findings: Right ?Pressure (mm Hg) ?? JULIAN ??Waveform ?TBI ?? Brachial Artery ?138 ? Dorsalis Pedis (Ankle) Arter y ?132 ? 0.94 ??[place]- Biphasic ? Posterior Tibial (Ankle) Art anila ??154 ? 1.10 ??[place]-Biphasic ? Fourth Toe ? 67 ? 0.48 [...] VASCUBASE POCT Glucose (08/13/2017 7:33 AM EST) P athologist Signature POC Glucose 156 65 - 199 [facility] mg/dL [facility]ORY Comment: Supplemental ranges: <140 mg/dL before meals <180 mg/dL all other times of the day Specimen Anatomical Collection Method Collection Time Receive d Time (Source) Location / / Volume Laterality Blood specimen 08/13/2017 7:33 AM 018 7:33 (specimen) EST AM EST Yonathan Smith MD POINT OF CARE TEST ORDERABLE S Performing Organization Address City/State/ZIP [place] [address] (ABNORMAL) Differential, Automated (08/13/2017 5:33 AM EST) Patholo gist Method Time Signature Neutrophils % 77.8 % [facility] LABORATORY Neutr Abs (ANC) 7.83 (H) 1.70 - [facility] 6.[address] [facility] x10(3)/[facility] L LABORATORY Lymphocytes % 8.4 % [facility]ORATORY Lymphocytes Abs 0.8 (L) 0.9 - 3.2 [facility] x10(3)/[facility] LABORATORY Monocytes % 8.3 % [facility] Monocyte Abs 0.8 0.3 - 0.9 [facility] x10(3)/[facility] LABORATORY Eosinophils % 4.6 % [facility] Eosinophils Abs 0.5 (H) 0.0 - 0.4 [facility] x10(3)/[facility] LABORATORY Basophils % 0.5 % [facility] Basophils Abs 0.0 0.0 - 0.1 [facility] x10(3)/[facility] LABORATORY Immature Gran % 0.40 % [facility] Comment: Immature granulocytes(IG's)percentage an d absolute count will include metamyelocytes, myelocytes, and promyelo cytes. Blood smears from CBCs yielding IG's will be scanned manually for concor dance. If this scan disagrees with the automated IG or if promyelocytes are not ed, a manual differential will be performed. Melisa Gran Abs 0.04 0.00 - 0.04 x10(3)/[facility] MAR Y [facility] LABORATORY Specimen Anatomical Collection Method Collection Time Receive d Time (Source) Location / / Volume Laterality Blood specimen 08/13/2017 5:33 AM 018 6:04 (specimen) EST AM EST Resulting Agency Comment Spec In Lab Yonathan Smith MD HEMATOLOGY ORDERABLES Performing Organization Address City/State/[place] [address] (ABNORMAL) Hemogram (08/13/2017 5:33 AM EST) Analysis Performed At Patho logist Time Signature WBC 10.1 (H) 4.0 - 9.5 [facility] x10(3)/[facility] LABORATORY RBC 3.21 (L) 4.58 - [facility] 5.[address] [facility] x10(6)/[facility] LABORATORY Hemoglobin 9.2 (L) 13.7 - [facility] 16.[facility] gm/dL [facility] LABORATORY Hematocrit 29.6 (L) 40.5 - [facility] 48.5 % [facility] LABORATORY MCV 92.2 82.9 - [facility] 93.1 [facility] LABORATORY MCH 28.7 27.5 - [place] 32.1 pg [facility] LABORATORY MCHC 31.1 (L) 32.0 - [facility] 35.7 gm/dL [facility] LABORATORY Platelets 263 145 - 357 [facility] x10(3)/[facility] LABORATORY RDWSD 54.8 (H) 36.0 - [facility] 45.0 [facility] LABORATORY RDWCV 16.4 (H) 11.4 - [facility] 13.8 % [facility] LABORATORY MPV 9.2 7.6 - 12.9 [facility] LABORATORY nRBC % Auto 0.0 % [facility] LABORATORY nRBC Abs Auto 0.000 0.000 - [facility] x10(3)/[facility] LABORATORY Specimen Anatomical Collection Method Collection Time Receive d Time (Source) Location / / Volume Laterality Blood specimen 08/13/2017 5:33 AM 018 6:04 (specimen) EST AM EST Resulting Agency Comment Spec In Lab Yonathan Smith MD HEMATOLOGY ORDERABLES Performing Organization Address City/State/[place] [address] (ABNORMAL) Prothrombin Time (08/13/2017 5:33 AM EST) P athologist Signature PT 17.3 (H) 11.8 - 14.0 [facility] LABORATORY INR 1.4 (H) 0.9 - 1.1 [facility] LABORATORY Comment: An INR <2.0 indicates [...] Organization Address City/State/[place] [address] (ABNORMAL) Basic Metabolic Panel (non-fasting) (08/13/2017 5:33 AM EST) athologist Signature Glucose Lvl 126 65 - 199 [facility] mg/dL [facility] LABORATORY Comment: Diabetes: >=200 mg/dL plus symp toms BUN 18 10 - 20 mg/dL [facility] LABORATORY Creatinine 1.16 0.80 - 1.50 mg/dL [facility] LABORATORY Sodium 141 135 - 145 mmol/L [facility] LABORATORY Potassium 4.6 3.5 - 5.0 mmol/L [facility] LABORATORY Comment: Please note: ??Patients with WBC >100,00 0 may have falsely elevated Potassium levels. ??For accurate Potassium quantif ication in these patients send serum separator tube (gold top) for subsequent determinations. ??Contact the Clinical Chemistry Laboratory if there are any qu estions. Chloride 100 98 - 107 mmol/L [facility] LABORATORY CO2 29 22 - 31 mmol/L [facility] LABORATORY Anion Gap 12 5 - 15 mmol/L [facility] LABORATORY Calcium 7.9 (L) 8.5 - 10.5 mg/dL [facility] LABORATORY Estimated GFR >60 >=60 [facility] LABORATORY Comment: The reported eGFR should be multiplied b y 1.2 for patients. The MDRD is not an appropriate measure o f renal function for patients with body mass extremes or in patients with acute kidney failure. [email or web address] [email or web address] Specimen Anatomical Collection Method Collection Time Receive d Time (Source) Location / / Volume Laterality Blood specimen 08/13/2017 5:33 AM 018 6:04 (specimen) EST AM EST Resulting Agency Comment Spec In Lab Yonathan Smith MD CHEMISTRY ORDERABLES Performing Organization Address City/[facility]/ZIP Code Phon e Number [address] POCT Glucose (08/13/2017 4:29 AM EST) athologist Signature POC Glucose 111 65 - 199 [place] mg/dL [facility] LABORATORY Comment: Supplemental ranges: <140 mg/dL before meals <180 mg/dL all other times of the day Specimen Anatomical Collection Method Collection Time Receive d Time (Source) Location / / Volume Laterality Blood specimen 08/13/2017 4:29 AM 018 4:29 (specimen) EST AM EST Yonathan Smith MD POINT OF CARE TEST ORDERABLE S Performing Organization Address City/[facility]/ZIP Code Phon e Number [address] POCT Glucose (08/12/2017 11:28 PM EST) athologist Signature POC Glucose 164 65 - 199 [place] mg/dL [facility] LABORATORY Comment: Supplemental ranges: <140 mg/dL before meals <180 mg/dL all other times of the day Specimen Anatomical Collection Method Collection Time Receive d Time (Source) Location / / Volume Laterality Blood specimen 08/12/2017 11:28 8 (specimen) PM EST 11:28 PM EST Yonathan Smith MD POINT OF CARE TEST ORDERABLE S Performing Organization Address City/[facility]/ZIP Code Phon e Number [address] (ABNORMAL) POCT Glucose (08/12/2017 7:40 PM EST) athologist Signature POC Glucose 209 (H) 65 - 199 [place] mg/dL [facility] LABORATORY Comment: Supplemental ranges: <140 mg/dL before meals <180 mg/dL all other times of the day Specimen Anatomical Collection Method Collection Time Receive d Time (Source) Location / / Volume Laterality Blood specimen 08/12/2017 7:40 PM 018 7:40 (specimen) EST PM EST Yonathan Smith MD POINT OF CARE TEST ORDERABLE S Performing Organization Address City/[facility]/ZIP Code Phon e Number [address] POCT Glucose (08/12/2017 4:24 PM EST) athologist Signature POC Glucose 161 65 - 199 [place] mg/dL [facility] LABORATORY Comment: Supplemental ranges: <140 mg/dL before meals <180 mg/dL all other times of the day Specimen Anatomical Collection Method Collection Time Receive d Time (Source) Location / / Volume Laterality Blood specimen 08/12/2017 4:24 PM 018 4:24 (specimen) EST PM EST Yonathan Smith MD POINT OF CARE TEST ORDERABLE S Performing Organization Address City/[facility]/ZIP Code Phon e Number [address] POCT Glucose (08/12/2017 12:00 PM EST) athologist Signature POC Glucose 167 65 - 199 [place] mg/dL [facility] LABORATORY Comment: Supplemental ranges: <140 mg/dL before meals <180 mg/dL all other times of the day Specimen Anatomical Collection Method Collection Time Receive d Time (Source) Location / / Volume Laterality Blood specimen 08/12/2017 12:00 8 (specimen) PM EST 12:00 PM EST Yonathan Smith MD POINT OF CARE TEST ORDERABLE S Performing Organization Address City/[facility]/ZIP Code Phon e Number [address] POCT Glucose (08/12/2017 7:25 AM EST) athologist Signature POC Glucose 152 65 - 199 [facility] RYAN mg/dL [facility] LABORATORY Comment: Supplemental ranges: <140 mg/dL before meals <180 mg/dL all other times of the day Specimen Anatomical Collection Method Collection Time Receive d Time (Source) Location / / Volume Laterality Blood specimen 08/12/2017 7:25 AM 018 7:25 (specimen) EST AM EST Yonathan Smith MD POINT OF CARE TEST ORDERABLE S Performing Organization Address City/State/Z[place] [address] (ABNORMAL) Differential, Automated (08/12/2017 6:29 AM EST) [facility] Method Time Signature Neutrophils % 78.7 % [facility] LABORATORY Neutr Abs (ANC) 7.94 (H) 1.70 - [facility] 6.[address] [facility] x10(3)/[facility] LABORATORY Lymphocytes % 8.8 % [facility] LABORATORY Lymphocytes Abs 0.9 0.9 - 3.2 [facility] x10(3)/[facility] LABORATORY Monocytes % 7.8 % [facility] LABORATORY Monocyte Abs 0.8 0.3 - 0.9 [facility] x10(3)/[facility] LABORATORY Eosinophils % 3.9 % [facility] LABORATORY Eosinophils Abs 0.4 0.0 - 0.4 [facility] x10(3)/[facility] LABORATORY Basophils % 0.3 % [facility] LABORATORY Basophils Abs 0.0 0.0 - 0.1 [facility] x10(3)/[facility] LABORATORY Immature Gran % 0.50 % [facility] LABORATORY Comment: Immature granulocytes(IG's)percentage an d absolute count will include metamyelocytes, myelocytes, and promyelo cytes. Blood smears from CBCs yielding IG's will be scanned manually for concor dance. If this scan disagrees with the automated IG or if promyelocytes are not ed, a manual differential will be performed. Melisa Gran Abs 0.05 (H) 0.00 - 0.04 x10(3)/[facility] LABORATORY Specimen Anatomical Collection Method Collection Time Receive d Time (Source) Location / / Volume Laterality Blood specimen 08/12/2017 6:29 AM 018 6:38 (specimen) EST AM EST Resulting Agency Comment Spec In Lab Yonathan Smith MD HEMATOLOGY ORDERABLES Performing Organization Address City/State/ZIP [place] [address] (ABNORMAL) Hemogram (08/12/2017 6:29 AM EST) Analysis Performed At Patho logist Time Signature WBC 10.1 (H) 4.0 - 9.5 [facility] x10(3)/[facility] LABORATORY RBC 3.02 (L) 4.58 - [facility] 5.[address] [facility] x10(6)/[facility] LABORATORY Hemoglobin 8.7 (L) 13.7 - [facility] 16.5 gm/dL [facility] LABORATORY Hematocrit 28.1 (L) 40.5 - [facility] 48.5 % [facility] LABORATORY MCV 93.0 82.9 - [facility] LABORATORY MCH 28.8 27.5 - [facility] 32.1 pg [facility] LABORATORY MCHC 31.0 (L) 32.0 - [facility] 35.7 gm/dL [facility] LABORATORY Platelets 223 145 - 357 [facility] x10(3)/[facility] LABORATORY RDWSD 56.1 (H) 36.0 - [facility] 45.0 [facility] LABORATORY RDWCV 16.4 (H) 11.4 - [facility] 13.8 % [facility] LABORATORY MPV 9.0 7.6 - 12.9 [facility] LABORATORY nRBC % Auto 0.0 % [facility] LABORATORY nRBC Abs Auto 0.000 0.000 - [facility] [address] [facility] x10(3)/[facility] LABORATORY Specimen Anatomical Collection Method Collection Time Receive d Time (Source) Location / / Volume Laterality Blood specimen 08/12/2017 6:29 AM 018 6:38 (specimen) EST AM EST Resulting Agency Comment Spec In Lab Yonathan Smith MD HEMATOLOGY ORDERABLES Performing Organization Address City/State/[place] [address] (ABNORMAL) Prothrombin Time (08/12/2017 6:29 AM EST) P athologist Signature PT 16.1 (H) 11.8 - 14.0 [facility] LABORATORY INR 1.3 (H) 0.9 - 1.1 [facility] LABORATORY Comment: An INR <2.0 indicates [...] Organization Address City/State/Z[place] [address] (ABNORMAL) Basic Metabolic Panel (non-fasting) (08/12/2017 6:29 AM EST) athologist Signature Glucose Lvl 151 65 - 199 [facility] mg/dL [facility] LABORATORY Comment: Diabetes: >=200 mg/dL plus symp toms BUN 18 10 - 20 mg/dL [facility] LABORATORY Creatinine 1.11 0.80 - 1.50 mg/dL [facility] LABORATORY Sodium 138 135 - 145 mmol/L [facility] LABORATORY Potassium 4.6 3.5 - 5.0 mmol/L [facility] LABORATORY Comment: Please note: ??Patients with WBC >100,00 0 may have falsely elevated Potassium levels. ??For accurate Potassium quantif ication in these patients send serum separator tube (gold top) for subsequent determinations. ??Contact the Clinical Chemistry Laboratory if there are any qu estions. Chloride 99 98 - 107 mmol/L [facility] LABORATORY CO2 28 22 - 31 mmol/L [facility] LABORATORY Anion Gap 11 5 - 15 mmol/L [facility] LABORATORY Calcium 7.9 (L) 8.5 - 10.5 mg/dL [facility] LABORATORY Estimated GFR >60 >=60 [facility] Comment: The reported eGFR should be multiplied b y 1.2 for patients. The MDRD is not an appropriate measure o f renal function for patients with body mass extremes or in patients with acute kidney failure. [email or web address]/DHnkdep [email or web address] Specimen Anatomical Collection Method Collection Time Receive d Time (Source) Location / / Volume Laterality Blood specimen 08/12/2017 6:29 AM 018 6:38 (specimen) EST AM EST Resulting Agency Comment Spec In Lab Yonathan Smith MD CHEMISTRY ORDERABLES Performing Organization Address City/[facility]/ZIP Code Phon e Number [address] POCT Glucose (08/12/2017 4:08 AM EST) athologist Signature POC Glucose 181 65 - 199 [facility] mg/dL [facility] LABORATORY Comment: Supplemental ranges: <140 mg/dL before meals <180 mg/dL all other times of the day Specimen Anatomical Collection Method Collection Time Receive d Time (Source) Location / / Volume Laterality Blood specimen 08/12/2017 4:08 AM 018 4:08 (specimen) EST AM EST Yonathan Smith MD POINT OF CARE TEST ORDERABLE S Performing Organization Address City/[facility]/ZIP [place] [address] (ABNORMAL) POCT Glucose (08/12/2017 12:17 AM EST) athologist Signature POC Glucose 221 (H) 65 - 199 [facility] LABORATORY Comment: Supplemental ranges: <140 mg/dL before meals <180 mg/dL all other times of the day Specimen Anatomical Collection Method Collection Time Receive d Time (Source) Location / / Volume Laterality Blood specimen 08/12/2017 12:17 8 (specimen) AM EST 12:17 AM EST Yonathan Smith MD POINT OF CARE TEST ORDERABLE S Performing Organization Address City/State/ZIP [place] [address] (ABNORMAL) POCT Glucose (08/11/2017 8:52 PM EST) athologist Signature POC Glucose 221 (H) 65 - 199 [place] mg/dL [facility] LABORATORY Comment: Supplemental ranges: <140 mg/dL before meals <180 mg/dL all other times of the day Specimen Anatomical Collection Method Collection Time Receive d Time (Source) Location / / Volume Laterality Blood specimen 08/11/2017 8:52 PM 018 8:52 (specimen) EST PM EST Yonathan Smith MD POINT OF CARE TEST ORDERABLE S Performing Organization Address City/State/ZIP [place] [address] POCT Glucose (08/11/2017 5:59 PM EST) athologist Signature POC Glucose 169 65 - 199 [facility] mg/dL [facility] LABORATORY Comment: Supplemental ranges: <140 mg/dL before meals <180 mg/dL all other times of the day Specimen Anatomical Collection Method Collection Time Receive d Time (Source) Location / / Volume Laterality Blood specimen 08/11/2017 5:59 PM 018 5:59 (specimen) EST PM EST Yonathan Smith MD POINT OF CARE TEST ORDERABLE S Performing Organization Address City/State/ZIP [place] [address] (ABNORMAL) POCT Glucose (08/11/2017 4:08 PM EST) athologist Signature POC Glucose 240 (H) 65 - 199 [place] mg/dL [facility] LABORATORY Comment: Supplemental ranges: <140 mg/dL before meals <180 mg/dL all other times of the day Specimen Anatomical Collection Method Collection Time Receive d Time (Source) Location / / Volume Laterality Blood specimen 08/11/2017 4:08 PM 018 4:08 (specimen) EST PM EST Yonathan Smith MD POINT OF CARE TEST ORDERABLE S Performing Organization Address City/State/ZIP [place] [address] POCT Glucose (08/11/2017 12:04 PM EST) athologist Signature POC Glucose 182 65 - 199 [facility] mg/dL [facility] LABORATORY Comment: Supplemental ranges: <140 mg/dL before meals <180 mg/dL all other times of the day Specimen Anatomical Collection Method Collection Time Receive d Time (Source) Location / / Volume Laterality Blood specimen 08/11/2017 12:04 8 (specimen) PM EST 12:04 PM EST Yonathan Smith MD POINT OF CARE TEST ORDERABLE S Performing Organization Address City/State/ZIP Code Phon e Number [address] POCT Glucose (08/11/2017 7:31 AM EST) athologist Signature POC Glucose 156 65 - 199 [facility] mg/dL [facility] LABORATORY Comment: Supplemental ranges: <140 mg/dL before meals <180 mg/dL all other times of the day Specimen Anatomical Collection Method Collection Time Receive d Time (Source) Location / / Volume Laterality Blood specimen 08/11/2017 7:31 AM 018 7:31 (specimen) EST AM EST Yonathan Smith MD POINT OF CARE TEST ORDERABLE S Performing Organization Address City/[facility]/ZIP Code Phon e Number [address] (ABNORMAL) Differential, Automated (08/11/2017 6:16 AM EST) [facility] gist Method Time Signature Neutrophils % 83.7 % [facility] LABORATORY Neutr Abs (ANC) 10.76 (H) 1.70 - [facility] 6.[address] [facility] x10(3)/[facility] LABORATORY Lymphocytes % 6.0 % [facility] LABORATORY Lymphocytes Abs 0.8 (L) 0.9 - 3.2 [facility] x10(3)/[facility] LABORATORY Monocytes % 7.5 % [facility] LABORATORY Monocyte Abs 1.0 (H) 0.3 - 0.9 [facility] x10(3)/[facility] LABORATORY Eosinophils % 2.0 % [facility] LABORATORY Eosinophils Abs 0.3 0.0 - 0.4 [facility] x10(3)/[facility] LABORATORY Basophils % 0.3 % [facility] LABORATORY Basophils Abs 0.0 0.0 - 0.1 [facility] x10(3)/[facility] LABORATORY Immature Gran % 0.50 % [facility] LABORATORY Comment: Immature granulocytes(IG's)percentage an d absolute count will include metamyelocytes, myelocytes, and promyelo cytes. Blood smears from CBCs yielding IG's will be scanned manually for concor dance. If this scan disagrees with the automated IG or if promyelocytes are not ed, a manual differential will be performed. Melisa Gran Abs 0.06 (H) 0.00 - 0.04 x10(3)/[facility] LABORATORY Specimen Anatomical Collection Method Collection Time Receive d Time (Source) Location / / Volume Laterality Blood specimen 08/11/2017 6:16 AM 018 6:24 (specimen) EST AM EST Resulting Agency Comment Spec In Lab Yonathan Smith MD HEMATOLOGY ORDERABLES Performing Organization Address City/State/Z[place] [address] (ABNORMAL) Hemogram (08/11/2017 6:16 AM EST) Analysis Performed At Patho logist Time Signature WBC 12.9 (H) 4.0 - 9.5 [facility] x10(3)/[facility] LABORATORY RBC 3.28 (L) 4.58 [facility] x10(6)/[facility] LABORATORY Hemoglobin 9.5 (L) 13.7 - [facility] 16.5 gm/dL [facility] LABORATORY Hematocrit 29.8 (L) 40.5 - [facility] 48.5 % [facility] LABORATORY MCV 90.9 82.9 - [facility] 93.1 fL [facility] LABORATORY MCH 29.0 27.5 - [facility] 32.1 pg [facility] LABORATORY MCHC 31.9 (L) 32.0 - [facility] 35.7 gm/dL [facility] LABORATORY Platelets 236 145 - 357 [facility] x10(3)/[facility] LABORATORY RDWSD 53.5 (H) 36.0 - [facility] 45.0 [facility] LABORATORY RDWCV 16.3 (H) 11.4 - [facility] 13.8 % [facility] LABORATORY MPV 8.8 7.6 - 12.9 [facility] LABORATORY nRBC % Auto 0.0 % [facility] LABORATORY nRBC Abs Auto 0.000 0.000 - [place] [address] [facility] x10(3)/[facility] LABORATORY Specimen Anatomical Collection Method Collection Time Receive d Time (Source) Location / / Volume Laterality Blood specimen 08/11/2017 6:16 AM 018 6:24 (specimen) EST AM EST Resulting Agency Comment Spec In Lab Yonathan Smith MD HEMATOLOGY ORDERABLES Performing Organization Address City/[facility] [place] [address] (ABNORMAL) Prothrombin Time (08/11/2017 6:16 AM EST) P athologist Signature PT 15.5 (H) 11.8 - 14.0 [facility] LABORATORY INR 1.3 (H) 0.9 - 1.1 [facility] LABORATORY Comment: An INR <2.0 indicates [...] Smith MD HEMATOLOGY ORDERABLES Performing Organization Address City/[facility] [place] [address] Basic Metabolic Panel (non-fasting) (08/11/2017 6:16 AM EST) athologist Signature Glucose Lvl 139 65 - 199 [facility] mg/dL [facility] LABORATORY Comment: Diabetes: >=200 mg/dL plus symp toms BUN 12 10 - 20 mg/dL [facility] LABORATORY Creatinine 0.91 0.80 - 1.50 mg/dL [facility] LABORATORY Sodium 138 135 - 145 mmol/L [facility] LABORATORY Potassium 4.6 3.5 - 5.0 mmol/L [facility] LABORATORY Comment: Please note: ??Patients with WBC >100,00 0 may have falsely elevated Potassium levels. ??For accurate Potassium quantif ication in these patients send serum separator tube (gold top) for subsequent determinations. ??Contact the Clinical Chemistry Laboratory if there are any qu estions. Chloride 98 98 - 107 mmol/L [facility] LABORATORY CO2 27 22 - 31 mmol/L [facility] LABORATORY Anion Gap 13 5 - 15 mmol/L [facility] LABORATORY Calcium 8.5 8.5 - 10.5 mg/dL [facility] LABORATORY Estimated GFR >60 >=60 [facility] LABORATORY Comment: The reported eGFR should be multiplied b y 1.2 for patients. The MDRD is not an appropriate measure o f renal function for patients with body mass extremes or in patients with acute kidney failure. [email or web address] [email or web address] Specimen Anatomical Collection Method Collection Time Receive d Time (Source) Location / / Volume Laterality Blood specimen 08/11/2017 6:16 AM 018 6:24 (specimen) EST AM EST Resulting Agency Comment Spec In Lab Yonathan Smith MD CHEMISTRY ORDERABLES Performing Organization Address City/State/ZIP [place] [address] POCT Glucose (08/11/2017 4:07 AM EST) athologist Signature POC Glucose 162 65 - 199 [facility] mg/dL [facility] LABORATORY Comment: Supplemental ranges: <140 mg/dL before meals <180 mg/dL all other times of the day Specimen Anatomical Collection Method Collection Time Receive d Time (Source) Location / / Volume Laterality Blood specimen 08/11/2017 4:07 AM 018 4:07 (specimen) EST AM EST Yonathan Smith MD POINT OF CARE TEST ORDERABLE S Performing Organization Address City/State/ZIP Code Phon e Number [address] POCT Glucose (08/10/2017 11:59 PM EST) athologist Signature POC Glucose 166 65 - 199 [place] mg/dL [facility] LABORATORY Comment: Supplemental ranges: <140 mg/dL before meals <180 mg/dL all other times of the day Specimen Anatomical Collection Method Collection Time Receive d Time (Source) Location / / Volume Laterality Blood specimen 08/10/2017 11:59 8 (specimen) PM EST 11:59 PM EST Yonathan Smith MD POINT OF CARE TEST ORDERABLE S Performing Organization Address City/State/ZIP Code Phon e Number [address] POCT Glucose (08/10/2017 8:12 PM EST) athologist Signature POC Glucose 156 65 - 199 [facility] mg/dL [facility] LABORATORY Comment: Supplemental ranges: <140 mg/dL before meals <180 mg/dL all other times of the day Specimen Anatomical Collection Method Collection Time Receive d Time (Source) Location / / Volume Laterality Blood specimen 08/10/2017 8:12 PM 018 8:12 (specimen) EST PM EST Yonathan Smith MD POINT OF CARE TEST ORDERABLE S Performing Organization Address City/State/ZIP Code Phon e Number [address] (ABNORMAL) POCT Glucose (08/10/2017 4:42 PM EST) athologist Signature POC Glucose 211 (H) 65 - 199 [facility] mg/dL [facility] LABORATORY Comment: Supplemental ranges: <140 mg/dL before meals <180 mg/dL all other times of the day Specimen Anatomical Collection Method Collection Time Receive d Time (Source) Location / / Volume Laterality Blood specimen 08/10/2017 4:42 PM 018 4:42 (specimen) EST PM EST Yonathan Smith MD POINT OF CARE TEST ORDERABLE S Performing Organization Address City/State/[place] [address] (ABNORMAL) Differential, Automated (08/10/2017 2:30 PM EST) [facility] Method Time Signature Neutrophils % 87.6 % [facility] LABORATORY Neutr Abs (ANC) 9.90 (H) 1.70 - [facility] 6.[address] [facility] x10(3)/[facility] LABORATORY Lymphocytes % 4.3 % [facility] LABORATORY Lymphocytes Abs 0.5 (L) 0.9 - 3.2 [facility] x10(3)/[facility] LABORATORY Monocytes % 6.0 % [facility] LABORATORY Monocyte Abs 0.7 0.3 - 0.9 [facility] x10(3)/[facility] LABORATORY Eosinophils % 1.1 % [facility] LABORATORY Eosinophils Abs 0.1 0.0 - 0.4 [facility] x10(3)/[facility] LABORATORY Basophils % 0.4 % [facility] LABORATORY Basophils Abs 0.0 0.0 - 0.1 [facility] x10(3)/[facility] LABORATORY Immature Gran % 0.60 % [facility] LABORATORY Comment: Immature granulocytes(IG's)percentage an d absolute count will include metamyelocytes, myelocytes, and promyelo cytes. Blood smears from CBCs yielding IG's will be scanned manually for concor dance. If this scan disagrees with the automated IG or if promyelocytes are not ed, a manual differential will be performed. Melisa Gran Abs 0.07 (H) 0.00 - 0.04 x10(3)/[facility] LABORATORY Specimen Anatomical Collection Method Collection Time Receive d Time (Source) Location / / Volume Laterality Blood specimen 08/10/2017 2:30 PM 018 2:48 (specimen) EST PM EST Resulting Agency Comment Spec In Lab Yonathan Smith MD HEMATOLOGY ORDERABLES Performing Organization Address City/State/ZIP [place] [address] (ABNORMAL) Hemogram (08/10/2017 2:30 PM EST) Analysis Performed At Patho logist Time Signature WBC 11.3 (H) 4.0 - 9.5 [facility] x[facility] LABORATORY RBC 3.13 (L) 4.58 - [place] [facility]AYN [address] [facility] x10(6)/[facility] LABORATORY Hemoglobin 8.9 (L) 13.7 - [facility] 16.5 gm/dL [facility] LABORATORY Hematocrit 28.4 (L) 40.5 - [facility] 48.5 % [facility] LABORATORY MCV 90.7 82.9 - [facility] 93.1 [facility] LABORATORY MCH 28.4 27.5 - [place] 32.1 pg [facility] LABORATORY MCHC 31.3 (L) 32.0 - [place] 35.7 gm/dL [facility] LABORATORY Platelets 213 145 - 357 [facility] x10(3)/[facility] LABORATORY RDWSD 53.7 (H) 36.0 - [facility] 45.0 [facility] LABORATORY RDWCV 16.4 (H) 11.4 - [facility] 13.8 % [facility] LABORATORY MPV 8.9 7.6 - 12.9 [facility] LABORATORY nRBC % Auto 0.0 % [facility] LABORATORY nRBC Abs Auto 0.000 0.000 - [place] [address] [facility] x10(3)/[facility] LABORATORY Specimen Anatomical Collection Method Collection Time Receive d Time (Source) Location / / Volume Laterality Blood specimen 08/10/2017 2:30 PM 018 2:48 (specimen) EST PM EST Resulting Agency Comment Spec In Lab Yonathan Smith MD HEMATOLOGY ORDERABLES Performing Organization Address City/State/ZIP [place] [address] (ABNORMAL) POCT Glucose (08/10/2017 1:50 PM EST) athologist Signature POC Glucose 243 (H) 65 - 199 [facility] mg/dL [facility] LABORATORY Comment: Supplemental ranges: <140 mg/dL before meals <180 mg/dL all other times of the day Specimen Anatomical Collection Method Collection Time Receive d Time (Source) Location / / Volume Laterality Blood specimen 08/10/2017 1:50 PM 018 1:50 (specimen) EST PM EST Yonathan Smith MD POINT OF CARE TEST ORDERABLE S Performing Organization Address City/State/ZIP Code Phon e Number [address] POCT Glucose (08/10/2017 11:21 AM EST) athologist Signature POC Glucose 156 65 - 199 [facility] mg/dL [facility] LABORATORY Comment: Supplemental ranges: <140 mg/dL before meals <180 mg/dL all other times of the day Specimen Anatomical Collection Method Collection Time Receive d Time (Source) Location / / Volume Laterality Blood specimen 08/10/2017 11:21 8 (specimen) AM EST 11:21 AM EST Yonathan Smith MD POINT OF CARE TEST ORDERABLE S Performing Organization Address City/[facility]/ZIP Code Phon e Number [address] (ABNORMAL) Differential, Automated (08/10/2017 10:28 AM EST) [facility] gist Method Time Signature Neutrophils % 85.3 % [facility] LABORATORY Neutr Abs (ANC) 9.43 (H) 1.70 - [facility] 6.[address] [facility] x10(3)/[facility] L LABORATORY Lymphocytes % 5.5 % [facility] LABORATORY Lymphocytes Abs 0.6 (L) 0.9 - 3.2 [facility] x10(3)/[facility] LABORATORY Monocytes % 5.9 % [facility] LABORATORY Monocyte Abs 0.6 0.3 - 0.9 [facility] x10(3)/[facility] LABORATORY Eosinophils % 2.1 % [facility] LABORATORY Eosinophils Abs 0.2 0.0 - 0.4 [facility] x10(3)/[facility] LABORATORY Basophils % 0.4 % [facility] LABORATORY Basophils Abs 0.0 0.0 - 0.1 [facility] x10(3)/[facility] LABORATORY Immature Gran % 0.80 % [facility] LABORATORY Comment: Immature granulocytes(IG's)percentage an d absolute count will include metamyelocytes, myelocytes, and promyelo cytes. Blood smears from CBCs yielding IG's will be scanned manually for concor dance. If this scan disagrees with the automated IG or if promyelocytes are not ed, a manual differential will be performed. Melisa Gran Abs 0.09 (H) 0.00 - 0.04 x10(3)/[facility] LABORATORY Specimen Anatomical Collection Method Collection Time Receive d Time (Source) Location / / Volume Laterality Blood specimen 08/10/2017 10:28 8 (specimen) AM EST 10:35 AM EST Resulting Agency Comment Spec In Lab Yonathan Smith MD HEMATOLOGY ORDERABLES Performing Organization Address City/State/Z[place] [address] (ABNORMAL) Hemogram (08/10/2017 10:28 AM EST) Analysis Performed At Patho logist Time Signature WBC 11.0 (H) 4.0 - 9.5 [facility] x10(3)/[facility] LABORATORY RBC 3.02 (L) 4.58 - [facility] [address] [facility] x10(6)/[facility] LABORATORY Hemoglobin 8.8 (L) 13.7 - [facility] 16.5 gm/dL [facility] LABORATORY Hematocrit 28.1 (L) 40.5 - [facility] 48.5 % [facility] LABORATORY MCV 93.0 82.9 - [facility] 93.1 fL [facility] LABORATORY MCH 29.1 27.5 - [facility] LABORATORY MCHC 31.3 (L) 32.0 - [facility] 35.7 gm/dL [facility] LABORATORY Platelets 207 145 - 357 [facility] x10(3)/[facility] LABORATORY RDWSD 55.3 (H) 36.0 - [place] DAVIS 45.0 [facility] LABORATORY RDWCV 16.4 (H) 11.4 - [place] [facility] 13.8 % [facility] MPV 9.0 7.6 - 12.9 [place] [facility] LABORATORY nRBC % Auto 0.0 % [facility] nRBC Abs Auto 0.000 0.000 - [place] DAV[place] [address] [facility] x10(3)/[facility] LABORATORY Specimen Anatomical Collection Method Collection Time Receive d Time (Source) Location / / Volume Laterality Blood specimen 08/10/2017 10:28 8 (specimen) AM EST 10:35 AM EST Resulting Agency Comment Spec In Lab Yonathan Smith MD HEMATOLOGY ORDERABLES Performing Organization Address City/State/Z[place] [address] VS Angiogram/intervention (vascular) (08/10/2017 [...] 2.5x80 5. Completion RLE angiogram 6. L CHEMISTRY ASSOCIATE angiogram 7. 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 - L CHEMISTRY ASSOCIATE angriogram demonstrated: High fe moral bifurcation over the proximal half of the femoral head. L CHEMISTRY ASSOCIATE access in the distal L CHEMISTRY ASSOCIATE. - Closure device: Mynx Technical Procedure: ?The [...] for a 45cm 5F Destination. V18 and Crescent a nd QuickCross catheters were used to [...] bifurcation. Access appeared in the distal R CHEMISTRY ASSOCIATE. Closure and sheath removal was performed with [...] 2.5x80 5. Completion RLE angiogram 6. L CHEMISTRY ASSOCIATE angiogram 7. 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 - L CHEMISTRY ASSOCIATE angriogram demonstrated: High fe moral bifurcation over the proximal half of the femoral head. L CHEMISTRY ASSOCIATE access in the distal L CHEMISTRY ASSOCIATE. - Closure device: Mynx Technical Procedure: The [...] for a 45cm 5F Destination. V18 and Crescent a nd QuickCross catheters were used to [...] bifurcation. Access appeared in the distal R CHEMISTRY ASSOCIATE. Closure and sheath removal was performed with [...] (ABNORMAL) Differential, Automated (08/10/2017 5:50 AM EST) [facility] Method Time Signature Neutrophils % 80.1 % [facility] LABORATORY Neutr Abs (ANC) 9.01 (H) 1.70 - [facility] 6.[address] [facility] x10(3)/[facility] LABORATORY Lymphocytes % 8.8 % [facility] LABORATORY Lymphocytes Abs 1.0 0.9 - 3.2 [facility] x10(3)/[facility] LABORATORY Monocytes % 8.3 % [facility] LABORATORY Monocyte Abs 0.9 0.3 - 0.9 [facility] x10(3)/[facility] LABORATORY Eosinophils % 2.0 % [facility] LABORATORY Eosinophils Abs 0.2 0.0 - 0.4 [facility] x10(3)/[facility] LABORATORY Basophils % 0.4 % [facility] LABORATORY Basophils Abs 0.0 0.0 - 0.1 [facility] x10(3)/[facility] LABORATORY Immature Gran % 0.40 % [facility] LABORATORY Comment: Immature granulocytes(IG's)percentage an d absolute count will include metamyelocytes, myelocytes, and promyelo cytes. Blood smears from CBCs yielding IG's will be scanned manually for concor dance. If this scan disagrees with the automated IG or if promyelocytes are not ed, a manual differential will be performed. Melisa Gran Abs 0.05 (H) 0.00 - 0.04 x10(3)/[facility] LABORATORY Specimen Anatomical Collection Method Collection Time Receive d Time (Source) Location / / Volume Laterality Blood specimen 08/10/2017 5:50 AM 018 5:59 (specimen) EST AM EST Resulting Agency Comment Spec In Lab Yonathan Smith MD HEMATOLOGY ORDERABLES Performing Organization Address City/State/Z[place] [address] (ABNORMAL) Hemogram (08/10/2017 5:50 AM EST) Analysis Performed At Patho logist Time Signature WBC 11.3 (H) 4.0 - 9.5 [facility] x10(3)/[facility] LABORATORY RBC 3.15 (L) 4.58 - [facility] [address] [facility] x10(6)/[facility] LABORATORY Hemoglobin 8.9 (L) 13.7 - [facility] 16.5 gm/dL [facility] LABORATORY Hematocrit 29.0 (L) 40.5 - [facility] 48.5 % [facility] LABORATORY MCV 92.1 82.9 - [facility] 93.1 [facility] LABORATORY MCH 28.3 27.5 - [facility] 32.1 pg [facility] LABORATORY MCHC 30.7 (L) 32.0 - [facility] 35.7 gm/dL [facility] LABORATORY Platelets 231 145 - 357 [facility] x10(3)/[facility] LABORATORY RDWSD 53.9 (H) 36.0 - [facility] 45.0 [facility] LABORATORY RDWCV 16.2 (H) 11.4 - [facility] 13.8 % [facility] LABORATORY MPV 8.7 7.6 - 12.9 [facility] LABORATORY nRBC % Auto 0.0 % [facility] LABORATORY nRBC Abs Auto 0.000 0.000 - [facility] [address] [facility] x10(3)/[facility] LABORATORY Specimen Anatomical Collection Method Collection Time Receive d Time (Source) Location / / Volume Laterality Blood specimen 08/10/2017 5:50 AM 018 5:59 (specimen) EST AM EST Resulting Agency Comment Spec In Lab Yonathan Smith MD HEMATOLOGY ORDERABLES Performing Organization Address City/State/ZIP [place] [address] (ABNORMAL) Basic Metabolic Panel (non-fasting) (08/10/2017 5:50 AM EST) athologist Signature Glucose Lvl 135 65 - 199 [facility] mg/dL [facility] LABORATORY Comment: Diabetes: >=200 mg/dL plus symp toms BUN 17 10 - 20 mg/dL [facility] LABORATORY Creatinine 1.05 0.80 - 1.50 mg/dL [facility] LABORATORY Sodium 144 135 - 145 mmol/L [facility] LABORATORY Potassium 4.6 3.5 - 5.0 mmol/L [facility] LABORATORY Comment: Please note: ??Patients with WBC >100,00 0 may have falsely elevated Potassium levels. ??For accurate Potassium quantif ication in these patients send serum separator tube (gold top) for subsequent determinations. ??Contact the Clinical Chemistry Laboratory if there are any qu estions. Chloride 104 98 - 107 mmol/L [facility] LABORATORY CO2 27 22 - 31 mmol/L [facility] LABOR[facility]ORY Anion Gap 13 5 - 15 mmol/L [facility] LABORATORY Calcium 8.1 (L) 8.5 - 10.5 mg/dL [facility] LABORATORY Estimated GFR >60 >=60 [facility] LABORATORY Comment: The reported eGFR should be multiplied b y 1.2 for patients. The MDRD is not an appropriate measure o f renal function for patients with body mass extremes or in patients with acute kidney failure. http://mydala.GreenOwl Mobile/DHnkdep http://YinYangMap/DHMCnkf Specimen Anatomical Collection Method Collection Time Receive d Time (Source) Location / / Volume Laterality Blood specimen 08/10/2017 5:50 AM 018 5:59 (specimen) EST AM EST Resulting Agency Comment Spec In Lab Yonathan Smith MD CHEMISTRY ORDERABLES Performing Organization Address City/State/ZIP [place] [address] (ABNORMAL) Prothrombin Time (08/10/2017 5:50 AM EST) athologist Signature PT 16.8 (H) 11.8 - 14.0 [facility] LABORATORY INR 1.4 (H) 0.9 - 1.1 [facility] LABORATORY Comment: An INR <2.0 indicates [...] Smith MD HEMATOLOGY ORDERABLES Performing Organization Address City/[facility]/ZIP [place] [address] (ABNORMAL) POCT Glucose (08/10/2017 4:01 AM EST) athologist Signature POC Glucose 206 (H) 65 - 199 [facility] mg/dL [facility] LABORATORY Comment: Supplemental ranges: <140 mg/dL before meals <180 mg/dL all other times of the day Specimen Anatomical Collection Method Collection Time Receive d Time (Source) Location / / Volume Laterality Blood specimen 08/10/2017 4:01 AM 018 4:01 (specimen) EST AM EST Yonathan Smith MD POINT OF CARE TEST ORDERABLE S Performing Organization Address City/[facility]/ZIP [place] [address] POCT Glucose (08/10/2017 2:01 AM EST) athologist Signature POC Glucose 188 65 - 199 [facility] mg/dL [facility] LABORATORY Comment: Supplemental ranges: <140 mg/dL before meals <180 mg/dL all other times of the day Specimen Anatomical Collection Method Collection Time Receive d Time (Source) Location / / Volume Laterality Blood specimen 08/10/2017 2:01 AM 018 2:01 (specimen) EST AM EST Yonathan Smith MD POINT OF CARE TEST ORDERABLE S Performing Organization Address City/State/ZIP [place] [address] (ABNORMAL) POCT Glucose (08/09/2017 11:42 PM EST) P athologist Signature POC Glucose 283 (H) 65 - 199 [facility] mg/dL [facility] LABORATORY Comment: Supplemental ranges: <140 mg/dL before meals <180 mg/dL all other times of the day Specimen Anatomical Collection Method Collection Time Receive d Time (Source) Location / / Volume Laterality Blood specimen 08/09/2017 11:42 8 (specimen) PM EST 11:42 PM EST Yonathan Smith MD POINT OF CARE TEST ORDERABLE S Performing Organization Address City/State/ZIP [place] [address] POCT Glucose (08/09/2017 8:55 PM EST) P athologist Signature POC Glucose 182 65 - 199 [facility] mg/dL [facility] LABORATORY Comment: Supplemental ranges: <140 mg/dL before meals <180 mg/dL all other times of the day Specimen Anatomical Collection Method Collection Time Receive d Time (Source) Location / / Volume Laterality Blood specimen 08/09/2017 8:55 PM 018 8:55 (specimen) EST PM EST Yonathan Smith MD POINT OF CARE TEST ORDERABLE S Performing Organization Address City/State/ZIP [place] [address] (ABNORMAL) APTT (08/09/2017 6:42 PM EST) P athologist Signature PTT 90 (H) 25 - 35 sec [facility] LABORATORY Comment: The recommended therapeutic range for fu ll dose, unfractionated heparin at [facility] is 80 ? 114 seconds. The use [...] Organization Address City/State/ZIP Code Phon e Number [address] POCT Glucose (08/09/2017 4:41 PM EST) athologist Signature POC Glucose 195 65 - 199 [facility] mg/dL [facility] LABORATORY Comment: Supplemental ranges: <140 mg/dL before meals <180 mg/dL all other times of the day Specimen Anatomical Collection Method Collection Time Receive d Time (Source) Location / / Volume Laterality Blood specimen 08/09/2017 4:41 PM 018 4:41 (specimen) EST PM EST Yonathan Smith MD POINT OF CARE TEST ORDERABLE S Performing Organization Address City/[facility]/ZIP Code Phon e Number [address] POCT Glucose (08/09/2017 12:29 PM EST) athologist Signature POC Glucose 140 65 - 199 [facility] mg/dL [facility] LABORATORY Comment: Supplemental ranges: <140 mg/dL before meals <180 mg/dL all other times of the day Specimen Anatomical Collection Method Collection Time Receive d Time (Source) Location / / Volume Laterality Blood specimen 08/09/2017 12:29 8 (specimen) PM EST 12:29 PM EST Yonathan Smith MD POINT OF CARE TEST ORDERABLE S Performing Organization Address City/State/ZIP Code Phon e Number [address] POCT Glucose (08/09/2017 9:59 AM EST) athologist Signature POC Glucose 135 65 - 199 [facility] mg/dL [facility] LABORATORY Comment: Supplemental ranges: <140 mg/dL before meals <180 mg/dL all other times of the day Specimen Anatomical Collection Method Collection Time Receive d Time (Source) Location / / Volume Laterality Blood specimen 08/09/2017 9:59 AM 018 9:59 (specimen) EST AM EST Yonathan Smith MD POINT OF CARE TEST ORDERABLE S Performing Organization Address City/[facility]/ZIP [place] [address] Specimen to Pathology (08/09/2017 8:41 AM EST) Specimen Anatomical Collection Method Collection Time Receive d Time (Source) Location / / Volume Laterality AP Specimen 08/09/2017 8:41 AM 8 8:41 EST AM EST Narrative [facility] LABORAT ORY - 08/09/2017 8:41 AM EST Specimen requisition ordered. ??Separate Pathology report to follow Yonathan Smith MD PATHOLOGY/CYTOLOGY ORDERABLE S Performing Organization Address City/State/ZIP [place] [address] Surgical Pathology Report (08/09/2017 8:40 AM EST) Component Value Ref Test Analysis [facility] g[facility] Range Method Time Signature Surgical [id number] ? Location: [facility]; [facility]; A [facility] Report The signing pathologist has (i) examined the relevant preparation(s) for the [facility] specimen(s) and (ii) rendered or confirmed the diagnosis(es) . HOSPITAL LABORATORY . 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 ?Viable proximal resection margins. Electronically signed by: ??Manjit STRANGE, Henrique Flower Verified: ??08/13/2017 ?Pathologist Performed at: ??-[facility] Dept. of Pathology, [place], [place] CLINICAL INFORMATION Specimen Submitted: A - [...] Volume Laterality 08/09/2017 8:40 AM EST Yonathan mSith MD PATHOLOGY/CYTOLOGY ORDERABLE S Performing Organization Address City/State/Z[place] [address] Anaerobic Culture (08/09/2017 8:30 AM EST) [facility] gist Method Time Signature Anaerobic No anaerobic [facility] Culture organisms [facility] LABORATORY Specimen Anatomical Collection Method Collection [...] Organization Address City/State/ZIP [place] [address] (ABNORMAL) Abscess/Wound Aspirate Culture (08/09/2017 8:30 AM EST) [facility] Method Time Signature Abscess/Wound Moderate mixed [place] Aspirate bacterial [place] Culture morphotypes [facility] normal LABORATORY cutaneous leroy (A) Gram Stain Rare White Blood Cells [place] Few Gram Positive Cocci in pairs [place] () [facility] LABORATORY Organism Gram Positive [place] Cocci in pairs [place] () [facility] LABORATORY Specimen Anatomical Collection Method [...] - GENERAL ORDER ROBSON Performing Organization Address City/[facility]/ZIP Code Phon e Number [address] POCT Glucose (08/09/2017 4:28 AM EST) P athologist Signature POC Glucose 128 65 - 199 [facility] mg/dL [facility] LABORATORY Comment: Supplemental ranges: <140 mg/dL before meals <180 mg/dL all other times of the day Specimen Anatomical Collection Method Collection Time Receive d Time (Source) Location / / Volume Laterality Blood specimen 08/09/2017 4:28 AM 018 4:28 (specimen) EST AM EST Yonathan Smith MD POINT OF CARE TEST ORDERABLE S Performing Organization Address City/[facility]/ZIP Code Phon e Number [address] ABORH Recheck Status (08/09/2017 1:10 AM EST) [facility] Method Time Signature ABORH Type Completed [facility] LABORATORY Specimen Anatomical Collection Method Collection Time Receive d Time (Source) Location / / Volume Laterality Blood specimen 08/09/2017 1:10 AM 018 1:35 (specimen) EST AM EST Resulting Agency Comment Spec In Lab Yonathan Smith MD BLOOD BANK ORDERABLES Performing Organization Address City/[facility]/ZIP [place] [address] Antibody screen (08/09/2017 1:10 AM EST) Patholo gist Method Time Signature Ab Screen Negative [facility] LABORATORY Expires at 08/12/2017 [facility] [id number] on: [facility] LABORATORY Specimen Anatomical Collection Method Collection Time Receive d Time (Source) Location / / Volume Laterality Blood specimen 08/09/2017 1:10 AM 018 1:35 (specimen) EST AM EST Resulting Agency Comment Spec In Lab Yonathan Smith MD BLOOD BANK ORDERABLES Performing Organization Address City/[facility]/ZIP Code Phon e Number [address] ABO/Rh Typing (08/09/2017 1:10 AM EST) P athologist Signature ABORh Type O Pos [facility] LABORATORY Specimen Anatomical Collection Method Collection Time Receive d Time (Source) Location / / Volume Laterality Blood specimen 08/09/2017 1:10 AM 018 1:35 (specimen) EST AM EST Resulting Agency Comment Spec In Lab Yonathan Smith MD BLOOD BANK ORDERABLES Performing Organization Address City/[facility] [place] [address] (ABNORMAL) APTT (08/09/2017 1:10 AM EST) P athologist Signature PTT 86 (H) 25 - 35 sec [facility] LABORATORY Comment: The recommended therapeutic range for fu ll dose, unfractionated heparin at [facility] is 80 ? 114 seconds. The use [...] Organization Address City/State/ZIP [place] [address] (ABNORMAL) Differential, Automated (08/09/2017 1:10 AM EST) [facility] Method Time Signature Neutrophils % 76.2 % [facility] LABORATORY Neutr Abs (ANC) 8.59 (H) 1.70 - [facility] [address] [facility] x10(3)/[facility] LABORATORY Lymphocytes % 11.0 % [facility] LABORATORY Lymphocytes Abs 1.2 0.9 - 3.2 [facility] x10(3)/[facility] LABORATORY Monocytes % 8.4 % [facility] LABORATORY Monocyte Abs 1.0 (H) 0.3 - 0.9 [facility] x10(3)/[facility] LABORATORY Eosinophils % 3.5 % [facility] LABORATORY Eosinophils Abs 0.4 0.0 - 0.4 [facility] x10(3)/[facility] LABORATORY Basophils % 0.5 % [facility] LABORATORY Basophils Abs 0.1 0.0 - 0.1 [facility] x10(3)/[facility] LABORATORY Immature Gran % 0.40 % [facility] LABORATORY Comment: Immature granulocytes(IG's)percentage an d absolute count will include metamyelocytes, myelocytes, and promyelo cytes. Blood smears from CBCs yielding IG's will be scanned manually for concor dance. If this scan disagrees with the automated IG or if promyelocytes are not ed, a manual differential will be performed. Melisa Gran Abs 0.05 (H) 0.00 - 0.04 x10(3)/[facility] LABORATORY Specimen Anatomical Collection Method Collection Time Receive d Time (Source) Location / / Volume Laterality Blood specimen 08/09/2017 1:10 AM 018 1:19 (specimen) EST AM EST Resulting Agency Comment Spec In Lab Yonathan Smith MD HEMATOLOGY ORDERABLES Performing Organization Address City/State/ZIP Code Phon e Number [place] [id number] HOSP[address] (ABNORMAL) Hemogram (08/09/2017 1:10 AM EST) Analysis Performed At Patho logist Time Signature WBC 11.3 (H) 4.0 - 9.5 [facility] x[facility](3[facility] LABORATORY RBC 3.47 (L) 4.58 - [place] [address] [facility] x10(6)/[facility] LABORATORY Hemoglobin 10.0 (L) 13.7 - [facility] 16.[facility] gm/dL [facility] LABORATORY Hematocrit 31.9 (L) 40.5 - [facility] 48.5 % [facility] LABORATORY MCV 91.9 82.9 - [facility] 93.1 [facility] LABORATORY MCH 28.8 27.5 - [facility] 32.1 pg [facility] LABORATORY MCHC 31.3 (L) 32.0 - [facility] 35.7 gm/dL [facility] LABORATORY Platelets 234 145 - 357 [facility] x10(3)/[facility] LABORATORY RDWSD 54.0 (H) 36.0 - [facility] 45.0 [facility] LABORATORY RDWCV 16.2 (H) 11.4 - [facility] 13.8 % [facility] LABORATORY MPV 8.7 7.6 - 12.9 [facility] LABORATORY nRBC % Auto 0.0 % [facility] LABORATORY nRBC Abs Auto 0.000 0.000 - [facility] [address] [facility] x10(3)/[facility] LABORATORY Specimen Anatomical Collection Method Collection Time Receive d Time (Source) Location / / Volume Laterality Blood specimen 08/09/2017 1:10 AM 018 1:19 (specimen) EST AM EST Resulting Agency Comment Spec In Lab Yonathan Smith MD HEMATOLOGY ORDERABLES Performing Organization Address City/State/ZIP [place] [address] (ABNORMAL) Prothrombin Time (08/09/2017 1:10 AM EST) P athologist Signature PT 16.0 (H) 11.8 - 14.0 [facility] LABORATORY INR 1.3 (H) 0.9 - 1.1 [facility] LABORATORY Comment: An INR <2.0 indicates [...] Organization Address City/State/ZIP Code Phon e Number [place] [phone]OS[address] (ABNORMAL) Basic Metabolic Panel (non-fasting) (08/09/2017 1:10 AM EST) athologist Signature Glucose Lvl 108 65 - 199 [facility] mg/dL [facility] LABORATORY Comment: Diabetes: >=200 mg/dL plus symp toms BUN 34 (H) 10 - 20 mg/dL [facility] LABORATORY Creatinine 1.54 (H) 0.80 - 1.50 mg/dL [facility] LABORATORY Sodium 138 135 - 145 mmol/L [facility] LABORATORY Potassium 4.5 3.5 - 5.0 mmol/L [facility] LABORATORY Comment: Please note: ??Patients with WBC >100,00 0 may have falsely elevated Potassium levels. ??For accurate Potassium quantif ication in these patients send serum separator tube (gold top) for subsequent determinations. ??Contact the Clinical Chemistry Laboratory if there are any qu estions. Chloride 96 (L) 98 - 107 mmol/L [facility] LABORATORY CO2 29 22 - 31 mmol/L [facility] LABORATORY Anion Gap 13 5 - 15 mmol/L [facility] LABORATORY Calcium 8.3 (L) 8.5 - 10.5 mg/dL [facility] Linnea [facility] LABORATORY Estimated GFR 45 (L) >=60 [facility] LAB[facility] Comment: The reported eGFR should be multiplied b y 1.2 for patients. The MDRD is not an appropriate measure o f renal function for patients with body mass extremes or in patients with acute kidney failure. http://YinYangMap/DHnkdep http://YinYangMap/DHMCnkf Specimen Anatomical Collection Method Collection Time Receive d Time (Source) Location / / Volume Laterality Blood specimen 08/09/2017 1:10 AM 018 1:19 (specimen) EST AM EST Resulting Agency Comment Spec In Lab Yonathan Smith MD CHEMISTRY ORDERABLES Performing Organization Address City/[facility]/ZIP Code Phon e Number [address] POCT Glucose (08/09/2017 12:05 AM EST) P athologist Signature POC Glucose 128 65 - 199 [facility] mg/dL [facility] LABORATORY Comment: Supplemental ranges: <140 mg/dL before meals <180 mg/dL all other times of the day Specimen Anatomical Collection Method Collection Time Receive d Time (Source) Location / / Volume Laterality Blood specimen 08/09/2017 12:05 8 (specimen) AM EST 12:05 AM EST Yonathan Smith MD POINT OF CARE TEST ORDERABLE S Performing Organization Address City/State/ZIP [place] [address] (ABNORMAL) POCT Glucose (08/08/2017 7:36 PM EST) P athologist Signature POC Glucose 215 (H) 65 - 199 [facility] mg/dL [facility] LABORATORY Comment: Supplemental ranges: <140 mg/dL before meals <180 mg/dL all other times of the day Specimen Anatomical Collection Method Collection Time Receive d Time (Source) Location / / Volume Laterality Blood specimen 08/08/2017 7:36 PM 018 7:36 (specimen) EST PM EST Yonathan Smith MD POINT OF CARE TEST ORDERABLE S Performing Organization Address City/State/ZIP [place] [address] (ABNORMAL) POCT Glucose (08/08/2017 6:23 PM EST) athologist Signature POC Glucose 216 (H) 65 - 199 [facility] mg/dL [facility] LABORATORY Comment: Supplemental ranges: <140 mg/dL before meals <180 mg/dL all other times of the day Specimen Anatomical Collection Method Collection Time Receive d Time (Source) Location / / Volume Laterality Blood specimen 08/08/2017 6:23 PM 018 6:23 (specimen) EST PM EST Yonathan Smith MD POINT OF CARE TEST ORDERABLE S Performing Organization Address City/[facility]/ZIP Code Phon e Number [address] (ABNORMAL) APTT (08/08/2017 6:00 PM EST) athologist [facility] PTT 97 (H) 25 - 35 sec [facility] LABORATORY Comment: The recommended therapeutic range for fu ll dose, unfractionated heparin at [facility] is 80 ? 114 seconds. The use [...] Organization Address City/State/ZIP [place] [address] POCT Glucose (08/08/2017 4:42 PM EST) athologist Signature POC Glucose 78 65 - 199 [facility] mg/dL [facility] LABORATORY Comment: Supplemental ranges: <140 mg/dL before meals <180 mg/dL all other times of the day Specimen Anatomical Collection Method Collection Time Receive d Time (Source) Location / / Volume Laterality Blood specimen 08/08/2017 4:42 PM 018 4:42 (specimen) EST PM EST Yonathan Smith MD POINT OF CARE TEST ORDERABLE S Performing Organization Address City/[facility]/ZIP [place] [address] (ABNORMAL) POCT Glucose (08/08/2017 4:01 PM EST) athologist Signature POC Glucose 58 (L) 65 - 199 [facility] mg/dL [facility] LABORATORY Comment: Supplemental ranges: <140 mg/dL before meals <180 mg/dL all other times of the day Specimen Anatomical Collection Method Collection Time Receive d Time (Source) Location / / Volume Laterality Blood specimen 08/08/2017 4:01 PM 018 4:01 (specimen) EST PM EST Yonathan Smith MD POINT OF CARE TEST ORDERABLE S Performing Organization Address City/[facility]/ZIP [place] [address] POCT Glucose (08/08/2017 11:51 AM EST) athologist Signature POC Glucose 90 65 - 199 [facility] mg/dL [facility] LABORATORY Comment: Supplemental ranges: <140 mg/dL before meals <180 mg/dL all other times of the day Specimen Anatomical Collection Method Collection Time Receive d Time (Source) Location / / Volume Laterality Blood specimen 08/08/2017 11:51 8 (specimen) AM EST 11:51 AM EST Yonathan Smith MD POINT OF CARE TEST ORDERABLE S Performing Organization Address City/State/ZIP [place] [address] (ABNORMAL) APTT (08/08/2017 10:27 AM EST) athologist Signature PTT 64 (H) 25 - 35 sec [facility] LABORATORY Comment: The recommended therapeutic range for fu ll dose, unfractionated heparin at [facility] is 80 ? 114 seconds. The use of the anti-Xa (heparin) level rather than the PTT is recommended for monitoring anticoagul ation intensity in critically ill patients receiving unfractionated hepari n by continuous IV infusion. Specimen Anatomical Collection Method Collection Time Receive d Time (Source) Location / / Volume Laterality Blood specimen 08/08/2017 10:27 8 (specimen) AM EST 10:34 AM EST Resulting Agency Comment Spec In Lab Yonathan Smith MD HEMATOLOGY ORDERABLES Performing Organization Address City/[facility]/ZIP [place] [address] POCT Glucose (08/08/2017 8:02 AM EST) athologist Signature POC Glucose 178 65 - 199 [facility] mg/dL [facility] LABORATORY Comment: Supplemental ranges: <140 mg/dL before meals <180 mg/dL all other times of the day Specimen Anatomical Collection Method Collection Time Receive d Time (Source) Location / / Volume Laterality Blood specimen 08/08/2017 8:02 AM 018 8:02 (specimen) EST AM EST Yonathan Smith MD POINT OF CARE TEST ORDERABLE S Performing Organization Address City/[facility] [place] [address] (ABNORMAL) APTT (08/08/2017 4:51 AM EST) athologist Signature PTT >160 25 - 35 [facility] ([facility] sec [facility] LABORATORY Comment: Called by: HOWARD, Read back by: Melba Jaramillo, Date/Time:08/08/17 05:43. The recommended therapeutic range for fu ll dose, unfractionated heparin at [facility] is 80 ? 114 seconds. The use [...] Smith MD HEMATOLOGY ORDERABLES Performing Organization Address City/[facility]/ZIP [place] [address] (ABNORMAL) Differential, Automated (08/08/2017 4:51 AM EST) Patholo gist Method Time Signature Neutrophils % 77.9 % [facility] LABORATORY Neutr Abs (ANC) 8.17 (H) 1.70 - [facility] 6.[address] [facility] x10(3)/[facility] LABORATORY Lymphocytes % 10.3 % [facility] LABORATORY Lymphocytes Abs 1.1 0.9 - 3.2 [facility] x10(3)/[facility] LABORATORY Monocytes % 7.0 % [facility] LABORATORY Monocyte Abs 0.7 0.3 - 0.9 [facility] x10(3)/[facility] LABORATORY Eosinophils % 3.6 % [facility] LABORATORY Eosinophils Abs 0.4 0.0 - 0.4 [facility] x10(3)/[facility] LABORATORY Basophils % 0.5 % [facility] LABORATORY Basophils Abs 0.0 0.0 - 0.1 [facility] x10(3)/[facility] LABORATORY Immature Gran % 0.70 % [facility] LABORATORY Comment: Immature granulocytes(IG's)percentage an d absolute count will include metamyelocytes, myelocytes, and promyelo cytes. Blood smears from CBCs yielding IG's will be scanned manually for concor dance. If this scan disagrees with the automated IG or if promyelocytes are not ed, a manual differential will be performed. Melisa Gran Abs 0.07 (H) 0.00 - 0.04 x10(3)/[facility] LABORATORY Specimen Anatomical Collection Method Collection Time Receive d Time (Source) Location / / Volume Laterality Blood specimen 08/08/2017 4:51 AM 018 5:14 (specimen) EST AM EST Resulting Agency Comment Spec In Lab Yonathan Smith MD HEMATOLOGY ORDERABLES Performing Organization Address City/State/ZIP [place] [address] (ABNORMAL) Hemogram (08/08/2017 4:51 AM EST) Analysis Performed At Patho logist Time Signature WBC 10.5 (H) 4.0 - 9.5 [facility] x10(3)/[facility] LABORATORY RBC 3.27 (L) 4.58 - [place] [address] [facility] x10(6)/[facility] LABORATORY Hemoglobin 9.3 (L) 13.7 - [facility] 16.5 gm/dL [facility] LABORATORY Hematocrit 30.3 (L) 40.5 - [facility] 48.5 % [facility] LABORATORY MCV 92.7 82.9 - [facility] 93.1 [facility] LABORATORY MCH 28.4 27.5 - [facility] 32.1 pg [facility] LABORATORY MCHC 30.7 (L) 32.0 - [facility] 35.7 gm/dL [facility] LABORATORY Platelets 252 145 - 357 [facility] x10(3)/[facility] LABORATORY RDWSD 54.6 (H) 36.0 - [facility] 45.0 [facility] RDWCV 16.2 (H) 11.4 - [facility] 13.8 % [facility] LABORATORY MPV 9.1 7.6 - 12.9 [facility] LABORATORY nRBC % Auto 0.0 % [facility] LABORATORY nRBC Abs Auto 0.000 0.000 - [facility] [address] [facility] x10(3)/[facility] LABORATORY Specimen Anatomical Collection Method Collection Time Receive d Time (Source) Location / / Volume Laterality Blood specimen 08/08/2017 4:51 AM 018 5:14 (specimen) EST AM EST Resulting Agency Comment Spec In Lab Yonathan Smith MD HEMATOLOGY ORDERABLES Performing Organization Address City/State/Z[place] [address] (ABNORMAL) Prothrombin Time (08/08/2017 4:51 AM EST) athologist Signature PT 18.1 (H) 11.8 - 14.0 [facility] LABORATORY INR 1.5 (H) 0.9 - 1.1 [facility] LABORATORY Comment: An INR <2.0 indicates [...] Organization Address City/State/ZIP Code Phon e Number [place] [id number]OSP[address] LAB[address] Drive (ABNORMAL) Basic Metabolic Panel (non-fasting) (08/08/2017 4:51 AM EST) P athologist Signature Glucose Lvl 229 (H) 65 - 199 [facility] mg/dL [facility] LABORATORY Comment: Diabetes: >=200 mg/dL plus symp toms BUN 35 (H) 10 - 20 mg/dL [facility] LABORATORY Creatinine 1.57 (H) 0.80 - 1.50 mg/dL [facility] LABORATORY Sodium 136 135 - 145 mmol/L [facility] LABORATORY Potassium 4.5 3.5 - 5.0 mmol/L [facility] LABORATORY Comment: Please note: ??Patients with WBC >100,00 0 may have falsely elevated Potassium levels. ??For accurate Potassium quantif ication in these patients send serum separator tube (gold top) for subsequent determinations. ??Contact the Clinical Chemistry Laboratory if there are any qu estions. Chloride 94 (L) 98 - 107 mmol/L [facility] LABORATORY CO2 25 22 - 31 mmol/L [facility] LABORATORY Anion Gap 17 (H) 5 - 15 mmol/L [facility] LABORATORY Calcium 7.9 (L) 8.5 - 10.5 mg/dL [facility] LABORATORY Estimated GFR 44 (L) >=60 [facility] LABORATORY Comment: The reported eGFR should be multiplied b y 1.2 for patients. The MDRD is not an appropriate measure o f renal function for patients with body mass extremes or in patients with acute kidney failure. http://mydala.GreenOwl Mobile/DHnkdep http://mydala.GreenOwl Mobile/DHMCnkf Specimen Anatomical Collection Method Collection Time Receive d Time (Source) Location / / Volume Laterality Blood specimen 08/08/2017 4:51 AM 018 5:14 (specimen) EST AM EST Resulting Agency Comment Spec In Lab Yonathan Smith MD CHEMISTRY ORDERABLES Performing Organization Address City/State/ZIP Code Phon e Number [address] POCT Glucose (08/08/2017 4:20 AM EST) athologist Signature POC Glucose 193 65 - 199 [facility] mg/dL [facility] LABORATORY Comment: Supplemental ranges: <140 mg/dL before meals <180 mg/dL all other times of the day Specimen Anatomical Collection Method Collection Time Receive d Time (Source) Location / / Volume Laterality Blood specimen 08/08/2017 4:20 AM 018 4:20 (specimen) EST AM EST Yonathan Smith MD POINT OF CARE TEST ORDERABLE S Performing Organization Address City/[facility]/ZIP Code Phon e Number [address] POCT Glucose (08/07/2017 11:11 PM EST) athologist Signature POC Glucose 124 65 - 199 [facility] mg/dL [facility] LABORATORY Comment: Supplemental ranges: <140 mg/dL before meals <180 mg/dL all other times of the day Specimen Anatomical Collection Method Collection Time Receive d Time (Source) Location / / Volume Laterality Blood specimen 08/07/2017 11:11 8 (specimen) PM EST 11:11 PM EST Yonathan Smtih MD POINT OF CARE TEST ORDERABLE S Performing Organization Address City/[facility]/ZIP Code Phon e Number [address] (ABNORMAL) APTT (08/07/2017 10:18 PM EST) athologist Signature PTT 114 (H) 25 - 35 sec [facility] LABORATORY Comment: The recommended therapeutic range for fu ll dose, unfractionated heparin at [facility] is 80 ? 114 seconds. The use [...] Organization Address City/State/ZIP Code Phon e Number [address] POCT Glucose (08/07/2017 8:10 PM EST) athologist Signature POC Glucose 140 65 - 199 [facility] mg[facility]dL [facility] LABORATORY Comment: Supplemental ranges: <140 mg/dL before meals <180 mg/dL all other times of the day Specimen Anatomical Collection Method Collection Time Receive d Time (Source) Location / / Volume Laterality Blood specimen 08/07/2017 8:10 PM 018 8:10 (specimen) EST PM EST Yonathan Smith MD POINT OF CARE TEST ORDERABLE S Performing Organization Address City/State/ZIP Code Phon e Number [address] POCT Glucose (08/07/2017 5:27 PM EST) athologist Signature POC Glucose 187 65 - 199 [facility] mg/dL [facility] LABORATORY Comment: Supplemental ranges: <140 mg/dL before meals <180 mg/dL all other times of the day Specimen Anatomical Collection Method Collection Time Receive d Time (Source) Location / / Volume Laterality Blood specimen 08/07/2017 5:27 PM 018 5:27 (specimen) EST PM EST Yonathan Smith MD POINT OF CARE TEST ORDERABLE S Performing Organization Address City/State/ZIP [place] [address] POCT Glucose (08/07/2017 3:29 PM EST) athologist Signature POC Glucose 86 65 - 199 [facility] mg/dL [facility] LABORATORY Comment: Supplemental ranges: <140 mg/dL before meals <180 mg/dL all other times of the day Specimen Anatomical Collection Method Collection Time Receive d Time (Source) Location / / Volume Laterality Blood specimen 08/07/2017 3:29 PM 018 3:29 (specimen) EST PM EST Yonathan Smith MD POINT OF CARE TEST ORDERABLE S Performing Organization Address City/State/ZIP [place] [address] (ABNORMAL) APTT (08/07/2017 2:50 PM EST) athologist Signature PTT 60 (H) 25 - 35 sec [facility] LABORATORY Comment: The recommended therapeutic range for fu ll dose, unfractionated heparin at [facility] is 80 ? 114 seconds. The use [...] Smith MD HEMATOLOGY ORDERABLES Performing Organization Address City/[facility]/ZIP [place] [address] (ABNORMAL) POCT Glucose (08/07/2017 2:23 PM EST) athologist Signature POC Glucose 55 (L) 65 - 199 [facility] mg/dL [facility] LABORATORY Comment: Supplemental ranges: <140 mg/dL before meals <180 mg/dL all other times of the day Specimen Anatomical Collection Method Collection Time Receive d Time (Source) Location / / Volume Laterality Blood specimen 08/07/2017 2:23 PM 018 2:23 (specimen) EST PM EST Yonathan Smith MD POINT OF CARE TEST ORDERABLE S Performing Organization Address City/State/ZIP Code Phon e Number [place] [phone] [facility] LABORATORY Drive POCT Glucose (08/07/2017 12:08 PM EST) P athologist Signature POC Glucose 77 65 - 199 [facility] mg/dL [facility] Comment: Supplemental ranges: <140 mg/dL before meals <180 mg/dL all other times of the day Specimen Anatomical Collection Method Collection Time Receive d Time (Source) Location / / Volume Laterality Blood specimen 08/07/2017 12:08 8 (specimen) PM EST 12:08 PM EST Yonathan Smith MD POINT OF CARE TEST ORDERABLE S Performing Organization Address City/State/ZIP Code Phon e Number [address] (ABNORMAL) Differential, Automated (08/07/2017 7:30 AM EST) Patholo gist Method Time Signature Neutrophils % 73.8 % [facility] Neutr Abs (ANC) 7.17 (H) 1.70 - [facility] [address] [facility] x10(3)/[facility] LABORATORY Lymphocytes % 12.2 % [facility] Lymphocytes Abs 1.2 0.9 - 3.2 [facility] x10(3)/[facility] LABORATORY Monocytes % 9.0 % [facility] Monocyte Abs 0.9 0.3 - 0.9 [facility] x10(3)/[facility] LABORATORY Eosinophils % 3.9 % [facility] Eosinophils Abs 0.4 0.0 - 0.4 [facility] x10(3)/[facility] LABORATORY Basophils % 0.6 % [facility] Basophils Abs 0.1 0.0 - 0.1 [facility] x10(3)/[facility] LABORATORY Immature Gran % 0.50 % [facility] Comment: Immature granulocytes(IG's)percentage an d absolute count will include metamyelocytes, myelocytes, and promyelo cytes. Blood smears from CBCs yielding IG's will be scanned manually for concor dance. If this scan disagrees with the automated IG or if promyelocytes are not ed, a manual differential will be performed. Melisa Gran Abs 0.05 (H) 0.00 - 0.04 x10(3)/[facility] LABORATORY Specimen Anatomical Collection Method Collection Time Receive d Time (Source) Location / / Volume Laterality Blood specimen 08/07/2017 7:30 AM 018 7:45 (specimen) EST AM EST Resulting Agency Comment Spec In Lab Yonathan Smith MD HEMATOLOGY ORDERABLES Performing Organization Address City/State/[place] [address] (ABNORMAL) Hemogram (08/07/2017 7:30 AM EST) Analysis Performed At Patho logist Time Signature WBC 9.7 (H) 4.0 - 9.5 [facility] x10(3)/[facility] LABORATORY RBC 3.54 (L) 4.58 - [facility] [address] [facility] x10(6)/[facility] LABORATORY Hemoglobin 9.9 (L) 13.7 - [facility] 16.5 gm/dL [facility] Hematocrit 32.3 (L) 40.5 - [facility] 48.5 % [facility] MCV 91.2 82.9 - [facility] 93.1 [facility] LABORATORY MCH 28.0 27.5 - [facility] 32.1 pg [facility] MCHC 30.7 (L) 32.0 - [facility] 35.7 gm/dL [facility] Platelets 312 145 - 357 [facility] x10(3)/[facility] LABORATORY RDWSD 53.2 (H) 36.0 - [facility] 45.0 [facility] LABORATORY RDWCV 16.0 (H) 11.4 - [facility] 13.8 % [facility] MPV 8.9 7.6 - 12.9 [facility] LABORATORY nRBC % Auto 0.0 % [facility] nRBC Abs Auto 0.000 0.000 - [facility] [address] [facility] x10(3)/[facility] LABORATORY Specimen Anatomical Collection Method Collection Time Receive d Time (Source) Location / / Volume Laterality Blood specimen 08/07/2017 7:30 AM 018 7:45 (specimen) EST AM EST Resulting Agency Comment Spec In Lab Yonathan Smith MD HEMATOLOGY ORDERABLES Performing Organization Address City/State/ZIP Code Phon e Number [facility] [place] [address] (ABNORMAL) Basic Metabolic Panel (non-fasting) (08/07/2017 7:30 AM EST) athologist Signature Glucose Lvl 80 65 - 199 [facility] mg/dL [facility] Comment: Diabetes: >=200 mg/dL plus symp toms BUN 31 (H) 10 - 20 mg/dL [facility] Creatinine 1.22 0.80 - 1.50 mg/dL [facility] Sodium 140 135 - 145 mmol/L [facility] Potassium 4.5 3.5 - 5.0 mmol/L [facility] Comment: Please note: ??Patients with WBC >100,00 0 may have falsely elevated Potassium levels. ??For accurate Potassium quantif ication in these patients send serum separator tube (gold top) for subsequent determinations. ??Contact the Clinical Chemistry Laboratory if there are any qu estions. Chloride 99 98 - 107 mmol/L [facility] CO2 29 22 - 31 mmol/L [facility] Anion Gap 12 5 - 15 mmol/L [facility] Calcium 8.5 8.5 - 10.5 mg/dL [facility] Estimated GFR 59 (L) >=60 [facility] Comment: The reported eGFR should be multiplied b y 1.2 for patients. The MDRD is not an appropriate measure o f renal function for patients with body mass extremes or in patients with acute kidney failure. http://YinYangMap/DHnkdep http://YinYangMap/DHMCnkf Specimen Anatomical Collection Method Collection Time Receive d Time (Source) Location / / Volume Laterality Blood specimen 08/07/2017 7:30 AM 018 7:45 (specimen) EST AM EST Resulting Agency Comment Spec In Lab Yonathan Smith MD CHEMISTRY ORDERABLES Performing Organization Address City/[facility]/ZIP [place] [address] POCT Glucose (08/07/2017 7:27 AM EST) athologist Signature POC Glucose 81 65 - 199 [facility] mg/dL [facility] Comment: Supplemental ranges: <140 mg/dL before meals <180 mg/dL all other times of the day Specimen Anatomical Collection Method Collection Time Receive d Time (Source) Location / / Volume Laterality Blood specimen 08/07/2017 7:27 AM 018 7:27 (specimen) EST AM EST Yonathan Smith MD POINT OF CARE TEST ORDERABLE S Performing Organization Address [facility] Phon e Number [address] APTT (08/07/2017 7:04 AM EST) athologist Signature PTT 34 25 - 35 sec [facility] Comment: The recommended therapeutic range for fu ll dose, unfractionated heparin at [facility] is 80 ? 114 seconds. The use [...] Smith MD HEMATOLOGY ORDERABLES Performing Organization Address City/[facility]/ZIP [facility] [place] [address] (ABNORMAL) Prothrombin Time (08/07/2017 7:04 AM EST) athologist Signature PT 17.3 (H) 11.8 - 14.0 [facility] LABORATORY INR 1.4 (H) 0.9 - 1.1 [facility] Comment: An INR <2.0 indicates [...] Smith MD HEMATOLOGY ORDERABLES Performing Organization Address City/[facility]/ZIP Code Phon e Number [address] POCT Glucose (08/07/2017 4:03 AM EST) athologist Signature POC Glucose 93 65 - 199 [facility]/dL [facility] Comment: Supplemental ranges: <140 mg/dL before meals <180 mg/dL all other times of the day Specimen Anatomical Collection Method Collection Time Receive d Time (Source) Location / / Volume Laterality Blood specimen 08/07/2017 4:03 AM 018 4:03 (specimen) EST AM EST Yonathan Smith MD POINT OF CARE TEST ORDERABLE S Performing Organization Address City/[facility]/ZIP Code Phon e Number [address] POCT Glucose (08/07/2017 12:04 AM EST) athologist Signature POC Glucose 107 65 - 199 [facility]/dL [facility] Comment: Supplemental ranges: <140 mg/dL before meals <180 mg/dL all other times of the day Specimen Anatomical Collection Method Collection Time Receive d Time (Source) Location / / Volume Laterality Blood specimen 08/07/2017 12:04 8 (specimen) AM EST 12:04 AM EST Yonathan Smith MD POINT OF CARE TEST ORDERABLE S Performing Organization Address City/State/ZIP [place] [address] POCT Glucose (08/06/2017 7:56 PM EST) P athologist Signature POC Glucose 178 65 - 199 [facility] mg/dL [facility] Comment: Supplemental ranges: <140 mg/dL before meals <180 mg/dL all other times of the day Specimen Anatomical Collection Method Collection Time Receive d Time (Source) Location / / Volume Laterality Blood specimen 08/06/2017 7:56 PM 018 7:56 (specimen) EST PM EST Yonathan Smith MD POINT OF CARE TEST ORDERABLE S Performing Organization Address City/State/ZIP [place] [address] [facility] LABORATORY Drive TcPO2 (08/06/2017 2:32 PM EST) Component Value Ref Test Analysis Performed At Patholo gist Range Method Time Signature VB Text Department: Vascular Surgery Lab VASCUBASE Report Patient: [id number] (GREGORY HOANG) CPT: 3095221 ICD10: I99.8 Referring Physician: YONATHAN SMITH ?? [...] VASCUBASE documented in this encounter Visit Diagnoses Not on filedocumented in this encounter Administered Medications Inactive Administered [...] Given 08/15/2017 8:08 AM EST 100 mg furosemide (LASIX) tablet 40 mg Given 08/16/2017 [...] insulin., Routine HYDROmorphone (DILAUDID) tablet 2-4 mg Given 08/16/2017 10:42 AM EST 4 mg 2-4 mg, Oral, EVERY 3 HOURS PRN, Starting on 08/07/17 at 1658, Until 08/16/17 at 1425, Pain, 2mg for mild - moderate pain 1-6 OR 4mg for severe pain 7-10, Routine Given 08/16/2017 7:51 AM EST 2 mg Given 08/16/2017 4:27 AM EST 2 mg insulin glargine VIAL injection 15 Units Given [...] 11 Units insulin lispro (humaLOG) VIAL injection 2-8 [...] Given 08/15/2017 11:58 PM EST 4 Units levothyroxine (SYNTHROID) tablet 175 mcg Given 08/16/2017 6:31 AM EST 175 mcg 175 mcg, Oral, EVERY MORNING, First dose on 08/07/17 at 0600, Until Discontinued, Routine Given 08/15/2017 [...] patch lidocaine (XYLOCAINE) 10 mg/mL (1 %) inj ection 3 mg 3 mg (0.3 mL), Subcutaneous, ONCE PRN, 1 dose, Startin g on Wed08/06/17 at 1659, Until Wed08/16/17 at 1425, for discomfort with PIV ins ertion, Routine lidocaine (XYLOCAINE) 10 mg/mL Given 08/11/2017 2:30 PM EST 4 mL s 19- Surgical Site (1 %) injection ONCE PRN, Starting on Wed08/11/17 at 1424, Until Wed08/16/17 at 1425, Intra-Operative (Intra-Procedure), Routine Given 08/11/2017 2:24 PM EST 15 mLs 19- S urgical Site lisinopril (PRINIVIL;ZESTRIL) tablet 2.5 mg Given 08/16/2017 8:00 AM EST 2.5 mg 2.5 mg, Oral, DAILY, First dose on Wed08/07/17 at 0900, Until Discontinued, Routine Given 08/15/2017 8:06 AM EST 2.5 mg Given 08/14/2017 8:25 AM EST 2.5 mg LORazepam (ATIVAN) tablet 0.5 mg Given 08/16/2017 10:42 AM EST 0.5 mg 0.5 mg, Oral, EVERY 6 HOURS PRN, Starting on Wed08/06/17 at 1629, Until Wed08/16/17 at 1425, Anxiety, Routine Given 08/15/2017 1:57 AM EST 0.5 mg Given 08/13/2017 12:24 AM EST 0.5 mg magnesium oxide (MAG-OX) tablet 400 mg Given 08/16/2017 8:00 AM EST 400 mg 400 mg, Oral, 2 TIMES DAILY, First dose on Wed08/06/17 at 2100, Until Discontinued Given 08/15/2017 8:25 PM EST 400 mg Given 08/15/2017 8:08 AM EST 400 mg melatonin tablet 6 mg Given 08/15/2017 8:25 [...] Given 08/14/2017 8:12 PM EST 25 mg polyethylene glycol (MIRALAX) packet 17 g Given 08/13/2017 11:05 AM EST 17 g 17 g, Oral, DAILY PRN, Starting on Wed08/11/17 at 1300, Until Wed08/16/17 at 1425, Constipation, Routine Given 08/12/2017 11:11 AM EST 17 g Given 08/11/2017 1:18 PM EST 17 g senna (SENOKOT) tablet 8.6 mg Given 08/16/2017 [...] PRN, Starting on Wed08/06/17 at 1659, Until Wed08/16/17 at 1425, flush, Flush pertains to all indwelling lines. Flush per protocol found in the job aid using the link provided on this medication record., Routine warfarin (COUMADIN) daily order reminder Oral, EVERY 24 HOURS, First dose on Wed08/12/17 at 1400, Until Discontinued, If the daily warfarin order has not been placed , contact the Provider to confirm that the order will be written, the dose is held or discontinue d. documented in this encounter Active and Recently [...] AMIOdarone (CORDARONE; PACERONE) tablet 400 mg 0823 (G christinaen - Provider: Chiquis Mcgrath RN) 0807 (Given - Provider: Chiquis Mcgrath RN) 0800 (G iven - Provider: Dory Truong RN) 400 mg, Oral, DAILY, First dose on Wed at 1700, Until Discontinued, Routine ascorbic acid (vitamin C) (VITAMIN C) tablet 500 mg 08 24 (Given - Provider: Chiquis Mcgrath RN) 08 (Given - Provider: Chiquis Mcgrath RN) 08 (Given - Provider: Dory Truong RN) 500 mg, Oral, DAILY, First dose on Wed at 1900, Until Discontinued, Routine aspirin EC tablet 81 mg 0823 (Given - Provider: Chiquis muñoz RN) 0800 (Given - Provider: Dory Truong RN) 81 mg, Oral, EVERY OTHER DAY, First dose on Wed08/06/17 at 1700, Until Discontinued, Routine atorvastatin (LIPITOR) tablet 40 mg 172 (Given - Prov ider: Chiquis Mcgrath RN) 171 (Given - Provider: Chiquis Mcgrath RN) 40 mg, Oral, EVERY EVENING, First dose o n Wed08/06/17 at 1700, Until Discontinued, Routine cefTRIAXone (ROCEPHIN) 2 g vial attach t o sodium chloride 0.9% 50 mL Mini-Bag Plus 172 (New Bag - Provider: Chiquis cho RN)1756 (Stopped - Provider: Henrique Marks RN) 171 (New Bag - Provider: Chiquis cho RN)1745 (Stopped - Provider: Chiquis Mcgrath RN) 2 g, Intravenous, EVERY 24 HOURS, First dose on Wed08/06/17 at 1700, Until Discontinued, Administer over 30 Minutes, Indication for (Active or Suspected): Skin/Skin Structure docusate sodium (COLACE) capsule 100 mg 826 (Given - Provider: Chiquis Mcgrath RN)2012 (Given - Provider: Henrique Marks RN) 807 (Given - Provider: Chiquis Mcgrath RN)2022 (Given - Provider: Mira Truong RN) 0800 (Given - Provider: Dory Truong, VAMSI) 100 mg, Oral, 2 TIMES DAILY, First dose on Wed08/13/17 at 0245, Until Discontinued, Routine enoxaparin (LOVENOX) injection 130 mg (CANCELED) 2009 (Given - Provider: Henrique Marks RN) 130 mg, Subcutaneous, NIGHTLY, First dos e on Ivis 08/12/17 at 2100, Until Discontinued, Routine furosemide (LASIX) tablet 40 mg 0825 (Given - Provider: Elias Mcgrath RN) 0806 (Given - Provider: Chiquis Mcgrath RN) 0800 (Given - Provider: Dory Truong RN) 40 mg, Oral, DAILY, First dose on Fri 07/12 at 1700, Until Discontinued, Routine insulin glargine VIAL injection 15 Units 2009 (Given - Provider: Henrique Marks RN) 2025 (Given - Provider: Mira Truong RN) 15 Units, Subcutaneous, NIGHTLY, First d ose on 08/06/17 at 2100, Until Discontinued, If patient is NPO for procedure, give 7.5 Units of glargine the night before., Routine insulin lispro (humaLOG) VIAL injection 11 Units 0829 (Given - Provider: Chiquis Mcgrath RN)1212 (Given - Provider: Chiquis Mcgrath RN)1730 (Given - Provider: Chiquis Mcgrath RN) 0746 (Given - Provider: Chiquis muñoz RN)1230 (Given - Provider: Chiquis Mcgrath RN)1708 (Given - Provider: Chiquis Mcgrath RN) 0749 (Given - Provider: Dory Yuan ams, RN)1200 (Not Given - Provider: Dory Truong, VAMSI - Reason: Patient/family refused) 11 Units, Subcutaneous, 3 TIMES DAILY WI TH MEALS, First dose on 08/07/17 at 1700, Until Discontinued, MEAL [...] parameters not met)0504 (Given - Provider: Henrique Marks, VAMSI)0800 (Not Given - Provider: Chiquis Mcgrath RN - Reason: Order parameters not met - Comment: BG 124) 0423 (Given - Provider: Mira Truong RN)0749 (Given - Provider: Dory Truong, RN)1200 (Not Given - Provider: Dory Truong, RN - Reason: Patient/family refused) 2-8 Units, [...] Order parameters not met - Comment: BG 135)1708 (Given - Provider: Chiquis Mcgrath RN)2024 (Not Given - Provider: Mira Truong, RN - Reason: Order parameters not met) ve 6 units BG greater than 240, give 8 u nits and recheck BG in 2 hours. If less than 240 after two hours, give no insulin and resume prior schedule. If BG remains greater than 240, repeat 8 units (no mo 2358 ( Given - Provider: Mira Truong, RN) re than three times) & call for new basa l insulin orders. DO NOT hold if NPO, unless specifically told to do so., Routine levothyroxine (SYNTHROID) tablet 175 mcg 0501 (Given - Provider: Henrique Marks, RN) 0502 (Given - Provider: Henrique Marks, RN) 0631 (G iven - Provider: Mira Truong, RN) 175 mcg, Oral, EVERY MORNING, First dose on 08/07/17 at 0600, Until Discontinued, Routine lidocaine (LIDODERM) 5 % patch 1 patch(Linked Group 2) 1733 (Not Given - Provider: Chiquis Mcgrath RN - Reason: Patient/family refused) 1700 (Not Given - Provider: Chiquis Mcgrath RN [...] Mcgrath RN) 0806 (Given - Provider: Chiquis Mcgrath RN) 0800 (G iven - Provider: Dory Truong, RN) 2.5 mg, Oral, DAILY, First dose on Wed at 0900, Until Discontinued, Routine magnesium oxide (MAG-OX) tablet 400 mg 0826 (Given - P rovider: Chiquis Mcgrath RN)2010 (Given - Provider: Henrique Marks RN) 0808 (Given - Provider: Chiquis Mcgrath, VAMSI)2024 (Given - Provider: Mira Truong, RN) 0800 (Given - Provider: Dory Truong, VAMSI) 400 mg, Oral, 2 TIMES DAILY, First dose on Wed08/06/17 at 2100, Until Discontinued melatonin tablet 6 mg 2012 (Given - Provider: Henrique vargas, VAMSI) 2024 (Given - Provider: Mira Truong, RN) 6 mg, Oral, NIGHTLY, First dose on Sat at 2100, Until Discontinued, Routine meTOPROLOL tartrate (LOPRESSOR) tablet 25 mg 0825 (Giv en - Provider: Chiquis Mcgrath RN)2011 (Given - Provider: Henrique Marks RN) 0900 (Given - Provider: Chiquis cMgrath RN)2022 (Hold - Provider: Mira Truong RN - Reason: See comment - Comment: BP 95/58. Per Dr. Flores. Ok to hold) 0800 (Given - Provider: Dory Truong RN) 25 mg, Oral, 2 TIMES DAILY, First dose o n Wed08/06/17 at 2100, Until Discontinued, Routine senna (SENOKOT) tablet 8.6 mg 0826 (Given - Provider: Chiquis Mcgrath RN)2011 (Given - Provider: Henrique Marks RN) 0808 (Given - Provider: Chiquis Mcgrath RN)2024 (Given - Provider: Mira Truong, RN) 0800 (Given - Provider: Dory Truong RN) 8.6 mg, Oral, 2 TIMES DAILY, First dose on Wed08/13/17 at 0245, Until Discontinued, Routine sodium chloride 0.9 % flush 5 mL 0515 (Given - Provide r: Henrique Marks RN)1733 (Given - Provider: Chiquis Mcgrath RN) 0506 (Given - Provider: Henrique Marks RN)1715 (Given - Provider: Chiquis Mcgrath RN) 0631 (Given - Provider: Mira Truong RN) 5 mL, Intravenous, EVERY 12 HOURS, First dose on Wed08/06/17 at 1715, Until Discontinued, Routine warfarin (COUMADIN) [...] Routine warfarin (COUMADIN) tablet 2.5 mg (COMPLETED) 1714 (Given - Provider: Chiquis Mcgrath RN) 2.5 mg, Oral, ONCE, 1 dose, 08/15/17 at 1700, Routine PRN Medication Order 08/14/2017 08/15/2017 08/16/2017 bisacodyl (DULCOLAX) suppository 10 mg 10 mg, Rectal, DAILY PRN, Starting Wed at 1058, Until Wed08/16/17 at 1425, Constipation, Routine dextrose 50% IV [...] Chiquis Mcgrath RN)1135 (Given - Provider: Chiquis Mcgrath RN)1751 (Given - Provider: Chiquis Mcgrath RN) 0157 (Given - Provider: Melba Jaramillo RN)0807 (Given - Provider: Chiquis Mcgrath RN)1159 (Given - Provider: Chiquis Mcgrath RN)1542 (Given - Provider: Kim Borges RN)2144 (Given [...] mL), Subcutaneous, ONCE PRN, 1 dose, Starting 08/06/17 at 1659, Until 08/16/17 at 1425, for discomfort with PIV insertion, Routine LORazepam (ATIVAN) tablet 0.5 mg 0157 (G iven - Provider: Melba Jaramillo RN) 1042 (Given - Provider: Dory M Willi ams, RN) 0.5 mg, Oral, EVERY 6 [...] S CHEDULED, First dose on Wed08/06/17 at 1999, Until Discontinued
CORRECTION BOLUS Moderate BG 140 [...]
Routine documented in this encounter Care Teams Players Assistant Relationship Specialty Start Date End Date Lovely Vicente MD PCP - General 04/16/[address] [place] [address] documented as of this encounter
--- OUTSIDE RECORDS SUMMARY | 2022-02-06 13:34 | XMS_ITS | Encounter Summary ---
:1945 [place] [address] Care Team Providers Name Role Phone Lovely Vicente MD Primary Care Provider Encounter Details Date Type Department Care Team Description 08/09/2017 Clinical Support Same Day at [facility] (D-SCHED ERROR [facility] / CORRECT ION ) [place] [address] Social History Tobacco Use Types Packs/Day [...] 02/19/2022 Office Visit Cardiology Liz Poole PA [facility] er Cardiology Dept [place], [place] [address] (Wo rk) 03/12/2022 Office Visit Cardiology Vitaliy Nobles MD 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 documented in this encounter Results SCAN DOC: BULLET ASSEMBLY PRESS OPERATOR (08/09/2017 12:00 AM EST) Narrative 08/09/2017 12:00 AM EST This result has an attachment that is no t available. Ordered by an unspecified provider. Scanning Provider MEDIA MGR SCAN EXT ORDR/RSLT documented in this encounter Visit Diagnoses Not on filedocumented in this encounter Care Teams Real Estate Salesperson Relationship Specialty Start Date End Date Lovely Vicente MD PCP - General 04/16/15 [facility] [address] [place] [address] documented as of this encounter
--- OUTSIDE RECORDS SUMMARY | 2022-02-06 13:35 | XMS_ITS | Encounter Summary ---
:1945 Author Organization [facility] [place] [address] Care Team Providers Name Role Phone Lovely Vicente MD Primary Care Provider Reason for Visit Reason Comments Deep Vein Thrombosis Auth/Cert Specialty Diagnoses / Procedures Referred By Contact Refer red To Contact Diagnoses Critical lower limb ischemia CELLULITIS RT FOOT Procedures EMERGENCY Referral ID Status Reason Start Date Expiration Date Visits Requ ested Visits Authorized [id number] 1 1 Encounter Details Date Type Department Care Team Description 08/04/2017 Office Visit Vascular Surgery at [facility] it[facility] lower limb [facility] [place] [facility] [address] [place], [place] VASCULAR SURGERY [id number] [place] [id number] [phone] Social History Tobacco Use Types Packs/Day Years Used Date Former Smoker Cigarettes 3 5 Quit: 07/26/18 69 Smokeless Tobacco: Never Used Alcohol Use Standard Drinks/Week Comments No 0 (1 standard drink = 0.6 oz pure alcoho l) Sex Assigned at Date Recorded Not on file documented as of this encounter Last Filed Vital Signs Vital Sign Reading Time Taken Comments Blood Pressure - - Pulse - - Temperature - - Respiratory Rate 18 08/04/2017 2:19 PM EST Oxygen Saturation - - Inhaled Oxygen Concentration - - Weight 85.7 kg (189 lb) 08/04/2017 2:19 PM EST Height 172.7 cm (5' 8) 08/04/2017 2:19 PM EST Body Mass Index 28.74 08/04/2017 2:19 PM EST documented in this encounter Progress Notes Arik Clement MD - 08/04/2017 2:15 PM EST 72 y.o.??male with a PMH of hypertension, hyperlipidemia, DM 2, MARIA VICTORIA on CPAP who was admitted 06/25/17with anterior STEMI who underwent a three-vessel CABG on 07/07. ??His hospital stay was complicated by A. fib with RVR and he was discharged on Coumadin. ??He [place] [facility] [place] with mottled toes on the right foot. 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 The mottled toes were thought to be embolic in nature and he was discharged home on a lovenox bridge to coumadin. Most recent INR 2.7 on 07/22. Visiting RN saw patient for first time today, reports RLE edematous, warm with palpable pulses but blair discoloration of his toes and associated pain in his toes for which he has been taking dilaudid. Denies pain in groin at site of thrombosed pseudoaneurysm. Pt c/o of severe pain in 1-3 toes R foot. Not controlled with narcotics. On exam toes are demarcating and likely not salvageable. We have discussed in the past he may need toe amputation. He would now like to proceed with this. We discussed the risks and benefits and he would like to proceed. documented in this encounter Plan of Treatment Upcoming Encounters Date Type Specialty Care Team Description 02/19/2022 Laboratory Appointment Lab 02/19/2022 Office Visit Cardiology Liz Poole PA [facility] Cardiology Dept [place], [place] [address] (Wo lissa) 03/12/2022 Office Visit Cardiology Vitaliy Nobles MD [facility] CARDIOLOGY [place], [place] [address] (Wo lissa) documented as of this encounter Visit Diagnoses Diagnosis Critical lower limb ischemia Unspecified circulatory system disorder documented in this encounter Care Teams Radiation Oncology Nurse Relationship Specialty Start Date End Date Lovely Vicente MD PCP - General 04/16/[address] [place] [address] documented as of this encounter
--- OUTSIDE RECORDS SUMMARY | 2022-02-06 13:35 | XMS_ITS | Encounter Summary ---
:1945 Author Organization [facility] [place] [address] Care Team Providers Name Role Phone Lovely Vicente MD Primary Care Provider Encounter Details Date Type Department Care Team Description 07/29/2017 Transcribe Orders Laboratory Lovely Vicente MD [address] [phone] [place], [place] [id number] (Mikayla rk) Social History Tobacco Use Types Packs/Day [...] 02/19/2022 Office Visit Cardiology Liz Poole PA [facility] er Cardiology Dept [place], [place] [address] (Wo rk) 03/12/2022 Office Visit Cardiology Vitaliy Nobles MD [facility] ER CARDIOLOGY [place], [place] [address] (Wo rk) documented as of this encounter Visit Diagnoses Not on filedocumented in this encounter Care Teams Leather Stitcher Relationship Specialty Start Date End Date Lovely Vicente MD PCP - General 04/16/[address] [place] [address] documented as of this encounter
--- OUTSIDE RECORDS SUMMARY | 2022-02-06 13:35 | XMS_ITS | Encounter Summary ---
:1945 [place] [address] Care Team Providers Name Role Phone Lovely Vicente MD Primary Care Provider Encounter Details Date Type Department Care Team Description 07/29/2017 Hospital Encounter Vascular Lab at [facility] Huber lower limb [facility] [place] [id number] Social History Tobacco Use Types Packs/Day Years Used Date Former Smoker Cigarettes 3 5 Quit: 07/26/18 69 Smokeless Tobacco: Never Used Alcohol Use Standard Drinks/Week Comments No 0 (1 standard drink = 0.6 oz pure alcoho l) Sex Assigned at Date Recorded Not on file documented as of this encounter Medications at Time of Discharge Medication Sig Dispensed Refills Start Date End Date metFORMIN (GLUCOPHAGE) Take 1 tablet by mouth 60 tablet 12 1 09/15/2016 850 mg Tablet 2 times daily (with meals). ACCU-CHEK TERA PLUS 2-3 times daily 100 each 1 07/14/2017 TEST STRP Strip BD INSULIN PEN NEEDLE 1 each by Other route 0 UF MINI 31 gauge x 4 times daily. 10/08 Needle lidocaine (LIDODERM) 5 Apply 1 patch onto the 30 patch 0 0 07/29/2017 07/30/2017 % Adhesive Patch, skin daily. (leave on Medicated for 12 hours and remove for 12 hours) cephalexin (KEFLEX) Take 1 capsule by 20 capsule 0 8 08/01/2017 500 mg Capsule mouth 4 times daily for 5 days. clobetasol (TEMOVATE) Apply 1 Application 1 06/2009/06/2019 0.05 % Solution topically 2 times daily. HYDROmorphone Take 0.5-1 tablets by 15 tablet 0 07/27/2017 08/16/2017 (DILAUDID) 2 mg Tablet mouth every 4 hours as needed for Pain. Take smallest dose needed as infrequently as possible traMADol (ULTRAM) 50 Take 1 tablet by mouth 20 tablet 0 08/201708/16/2017 mg Tablet every 6 hours as needed for Pain. enoxaparin (LOVENOX) Inject 0.85 mLs 10 Syringe 2 07/20/2017 07/30/2017 100 mg/mL Syringe subcutaneously 2 times daily. warfarin (COUMADIN) Take 1 tablet by mouth 0 06/2612/12/2021 2.5 mg Tablet daily. LANTUS SOLOSTAR pen Inject 20 Units 15 mL 1 07/20/2017 08/16/2017 subcutaneously nightly. acetaminophen Take 2 tablets by 30 tablet 1 07/14/201712/24 (TYLENOL) 500 mg mouth every 6 hours as Tablet needed for Pain. AMIOdarone (PACERONE) Take 1 tablet by mouth 30 tablet 0 10/08/2017 400 mg Tablet daily. atorvastatin (LIPITOR) Take 1 tablet by mouth 90 tablet 3 1 09/14/2016 09/06/2019 40 mg Tablet every evening. furosemide (LASIX) 20 Take 1 tablet by mouth 30 tablet 0 08/04/2017 mg Tablet daily. lisinopril Take 0.5 tablets by 90 tablet 3 07/14/201708/04 (PRINIVIL;ZESTRIL) 20 mouth daily. mg Tablet meTOPROLOL tartrate Take 1 tablet by mouth 180 tablet 3 06/2608/26/2017 (LOPRESSOR) 25 mg 2 times daily. Tablet insulin lispro Inject 15-20 Units 10 mL 1 07/14/2017 (HUMALOG KWIKPEN) subcutaneously 3 times Insulin Pen daily (with meals). levothyroxine Take 1 tablet by mouth 90 tablet 3 12/24/2016 09/08/2017 (SYNTHROID) 175 mcg daily. Tablet ascorbic acid, vitamin Take 500 mg by mouth 0 01/16/2019 C, (VITAMIN C) 500 mg daily. Winter months Tablet only turmeric root extract Take 500 mg by mouth 2 0 04/18/2018 500 mg Capsule times daily. Magnesium 200 mg Take 500 mg by mouth 2 0 07/30/2017 Tablet times daily. fish oil-omega-3 fatty Take 2 g by mouth 0 04/18/2018 acids 1,000 mg Capsule daily. aspirin 81 mg EC Take 81 mg by mouth 0 01/16/2019 tablet daily. fluocinolone acetonide Twice daily to less 60 mL 2 09/2308/16/2017 (SYNALAR) 0.01 % severe areas of external psoriasis solutionIndications: Psoriasis documented as of this encounter Plan of Treatment Upcoming Encounters Date Type Specialty Care Team Description 02/19/2022 Laboratory Appointment Lab 02/19/2022 Office Visit Cardiology Liz Poole PA [facility] er Cardiology Dept [place], [place] [address] (Wo rk) 03/12/2022 Office Visit Cardiology Vitaliy Nobles MD [facility] ER CARDIOLOGY [place], [place] [address] (Wo rk) documented as of this encounter Visit Diagnoses Diagnosis Critical lower limb ischemia Unspecified circulatory system disorder documented in this encounter Care Teams Global Marketing Specialist Relationship Specialty Start Date End Date Lovely Vicente MD PCP - General 04/16/[address] [place] [address] [address] [facility] [address] [place] [address] documented as of this encounter
--- OUTSIDE RECORDS SUMMARY | 2022-02-06 13:35 | XMS_ITS | Encounter Summary ---
:1945 [place] [address] Care Team Providers Name Role Phone Lovely Vicente MD Primary Care Provider Encounter Details Date Type Department Care Team Description 07/29/2017 Telephone Pain Aurelia Crawford MD [facility] [place] [address] [facility] [phone] [place], [place] [address] (Wo rk) Social History Tobacco Use Types Packs/Day Years Used Date Former Smoker Cigarettes 3 5 Quit: 07/26/18 69 Smokeless Tobacco: Never Used Alcohol Use Standard Drinks/Week Comments No 0 (1 standard drink = 0.6 oz pure alcoho l) Sex Assigned at Date Recorded Not on file documented as of this encounter Miscellaneous Notes Telephone Encounter - Aurelia Crawford - 07/29/2017 4:28 PM EST Received call from ED physician Dr Pathak regarding patient's severe right lower extremity pain secondary to peripheral vascular disease. Patient has had frequent ED visits due to RLE pain requiring overnight admission for pain control with IV dilaudid. He is currently managed with dilaudid 1mg q4h and tramadol 50mg q6h. I contacted pain clinic admin staff to schedule patient for a clinic evaluation of RLE ischemic leg pain. Things to consider include tapering of opioid medication, trial of LDN, topical ointment and consider spinal cord stimulation for ischemic limb pain. For symptomatic relief, pt can try lidocaine patches 4%, apply 2 patches over right leg, leave on for 12 hours. Aurelia Crawford Pain fellow (day call) documented in this encounter Plan of Treatment Upcoming Encounters Date Type Specialty Care Team Description 02/19/2022 Laboratory Appointment Lab 02/19/2022 Office Visit Cardiology Liz Poole PA [facility] er Cardiology Dept [place], [place] [address] (Wo rk) 03/12/2022 Office Visit Cardiology Vitaliy Nobles MD [facility] CARDIOLOGY [place], [place] [address] (Wo rk) documented as of this encounter Visit Diagnoses Not on filedocumented in this encounter Care Teams Solutions Sales Consultant Relationship Specialty Start Date End Date Lovely Vicente MD PCP - General 04/16/[address] [facility] [address] [place] [address] documented as of this encounter
--- OUTSIDE RECORDS SUMMARY | 2022-02-06 13:35 | XMS_ITS | Encounter Summary ---
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 Replaced By [facility] [address], [place], [place] [phone] Social History Tobacco Use Types Packs/Day Years Used Date Former Smoker Cigarettes 3 5 Quit: 07/26/18 69 Smokeless Tobacco: Never Used Alcohol Use Standard Drinks/Week Comments No 0 (1 standard drink = 0.6 oz pure alcoho l) Sex Assigned at Date Recorded Not on file documented as of this encounter Last Filed Vital Signs Vital Sign Reading Time Taken Comments Blood Pressure 87/45 07/30/2017 12:58 PM EST Pulse 66 07/30/2017 12:58 PM EST Temperature - - Respiratory Rate - - Oxygen Saturation 100% 07/30/2017 12:58 PM EST Inhaled Oxygen Concentration - - Weight 85.7 kg (189 lb) 07/30/2017 12:58 PM EST verbal Height 172.7 cm (5' 8) 07/30/2017 12:58 PM EST Body Mass Index 28.74 07/30/2017 12:58 PM EST documented in this encounter Patient Instructions Patient InstructionsBarbra Soares APRN - 07/30/2017 1:45 PM EST For Gabapentin 100mg -- - Take 1 tab twice/day for 3 days - Then, increase to 1 tab in the am, and 2 tabs at night for 3 days - Then, increase to 2 tabs twice/day for 3 days - Then, increase to 2 tabs in the am, and 3 tabs at night for 3 days - Then, increase to 3 tabs twice/day and discuss any further increases with your PCP Apply Lidocaine patch to right foot for 12 hours, then remove and do not apply another patch for 12 hours. Please stop Dilaudid and continue with Tramadol 50mg every 6 hours. documented in this encounter Progress Notes [facility] APRN - 07/30/2017 1:45 PM EST [facility] [place] [address] Phone: PAIN MANAGEMENT NEW PATIENT / CONSULTATION NOTE DATE OF VISIT 07/30/2017 Patient Don Fatima 1945 REFERRING PROVIDER Lovely Vicente MD [address] [place] [id number] PRIMARY CARE PROVIDER Lovely Vicente MD CHIEF COMPLAINT: Don Fatima is a 72 y.o. male with right lower extremity pain, who is seen in consultation at the request of Dr. Vicente for evaluation, recommendations, and management. The history is obtained from the patient, and I have reviewed medical records, provided by the referring physician and locatedin the electronic medical record, to fill in gaps in the patient's recollection of events, treatments, and outcomes. HPI Mr. Fatima has acute right lower extremity pain which has been present since mid June 2017. He has peripheral vascular disease. He had a STEMI & CABGx3 on 07/06/17. 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 He had a Doppler ultrasound that showed nonocclusive, acute/subacute deep vein thrombosis in the proximal to mid calf peroneal vein, no evidence of femoral-popliteal deep vein thrombosis. He was stabilized and discharged with Dilaudid 1mg every 4 hours and tramadol 50mg every 6 hours. He is due to follow-up with vascular surgery on 08/04/17. His reports that he has been slurring his words and very drowsy after taking each dose of dilaudid (1mg). Mr. Fatima reports that he does not notice significant pain relief from the pain medications. Pain Assessment: - Constant aching in the entire right foot and mostly toes - + mild numbness in the right foot, no weakness - Aggravated by: hitting or touching the foot, hot water - Alleviated by: elevating the leg makes it go numb - Average pain in past week: 6/10 with medication FUNCTIONAL /SOCIAL Lives with: Work: Interference with activities/ADL: able to care for self Exercise/activities: not much recently CURRENT THERAPIES: - Tylenol 1g daily prn - Tramadol 50mg every 6 hours- not much relief - Dilaudid 1mg every 3 hours prn- not much relief PAST THERAPIES: Nothing MEDICATIONS The [place] and [place] Prescription Monitoring Program was checked and no concerns were identified. Medications 07/30/17 1313 Medication Sig Taking? Magnesium Oxide 500 mg Capsule Take 500 mg by mouth 2 times daily. Yes clobetasol (TEMOVATE) 0.05 % Solution Apply 1 Application topically 2 times daily. Yes HYDROmorphone (DILAUDID) 2 mg Tablet Take 0.5-1 tablets by mouth every 4 hours as needed for Pain. Take smallest dose needed as infrequently as possible Yes traMADol (ULTRAM) 50 mg Tablet Take 1 tablet by mouth every 6 hours as needed for Pain. Yes cephalexin (KEFLEX) 500 mg Capsule Take 1 capsule by mouth 4 times daily for 5 days. Yes warfarin (COUMADIN) 2.5 mg Tablet Take 1 tablet by mouth daily. Yes LANTUS SOLOSTAR pen Inject 20 Units subcutaneously nightly. Patient taking differently: Inject 14 Units subcutaneously nightly. Yes acetaminophen (TYLENOL) 500 mg Tablet Take 2 tablets by mouth every 6 hours as needed for Pain. Yes AMIOdarone (PACERONE) 400 mg Tablet Take 1 tablet by mouth daily. Yes atorvastatin (LIPITOR) 40 mg Tablet Take 1 tablet by mouth every evening. Yes furosemide (LASIX) 20 mg Tablet Take 1 tablet by mouth daily. Yes lisinopril (PRINIVIL;ZESTRIL) 20 mg Tablet Take 0.5 tablets by mouth daily. Yes meTOPROLOL tartrate (LOPRESSOR) 25 mg Tablet Take 1 tablet by mouth 2 times daily. Yes insulin lispro (HUMALOG KWIKPEN) Insulin Pen Inject 15-20 Units subcutaneously 3 times daily (with meals). Patient taking differently: Inject 14 Units subcutaneously 3 times daily (with meals). Yes ACCU-CHEK TERA PLUS TEST STRP Strip 2-3 times daily Yes metFORMIN (GLUCOPHAGE) 850 mg Tablet Take 1 tablet by mouth 2 times daily (with meals). Yes BD INSULIN PEN NEEDLE UF MINI 31 gauge x 3/16 Needle 1 each by Other route 4 times daily. Yes levothyroxine (SYNTHROID) 175 mcg Tablet Take 1 tablet by mouth daily. Yes ascorbic acid, vitamin C, (VITAMIN [...] mg by mouth every other day. Yes fluocinolone acetonide (SYNALAR) 0.01 % external solution Twice daily to less severe areas of psoriasis Yes gabapentin (NEURONTIN) 100 mg Capsule Use titration schedule provided to increase to 300mg tid. lidocaine (LIDODERM) 5 % Adhesive Patch, Medicated Place one patch on right foot for 12 hours, then remove and do not apply another for 12 hours more. ADVERSE DRUG REACTIONS Allergies as of 07/30/2017 ??? (No Known Allergies) REVIEW OF SYSTEMS Constitutional: denies fever, chills, + weight loss after cardiac surgery, denies fatigue HEENT: denies headaches, blurry vision/vision changes, + difficulty hearing (wears hearing aides) Cardiac: denies chest pain, palpitations, + right foot lower extremity edema Lungs: denies shortness of breath, wheezing, cough GI: denies constipation or diarrhea, nausea or vomiting, black or bloody stool, loss of control of bowel : denies frequency, urgency, hesitation, or incontinence Neuro: denies changes in attention or orientation; denies dizziness, tremors Muscloskeletal: denies joint swelling, use of ambulatory aide, falls Skin: denies open sores or rashes, pruritis Psychological/Mood: pretty good; denies suicidal ideations Sleep: interrupted, slept a few hours last night after dilaudid 2mg last night RISK ASSESSMENT Smoking: no Alcohol (present/past): no, + history ETOH misuse (25-30 years ago) Illegal/prescription drug misuse (present/past): no MEDICAL HISTORY Past Medical History: Diagnosis Date ??? BPH (benign prostatic hyperplasia) 11/28/2013 ??? CAD (coronary artery disease) ??? Melanoma 2006 mid back ??? Peripheral vascular disease ??? Urinary retention 04/05/2013 SURGICAL HISTORY Past Surgical History: Procedure Laterality Date ??? PRG SOMATOSENSORY TEST, ANY/ALL PER. NERVES, TRUNK OR HEAD 03/28/2013 FACIAL NERVE MONITORING, SETUP performed by Manny Mcknight MD at [facility] OR ??? PRO CABG, ARTERIAL, SINGLE N/A 07/07/2017 @CABG, USING ARTERIAL GRAFT;SINGLE ARTERIAL GRAFT (WRVU 33.75) performed by Yuan Retana MD at [facility] OR ??? PRO CABG, ARTERY-VEIN, TWO N/A 07/07/2017 @CABG, TWO VENOUS GRAFTS & ARTERIAL GRAFT (WRVU 7.93) performed by Yuan Retana MD at [facility] OR ??? PRO COLONOSCOPY, REMV LESN, SNARE 01/16/2014 COLONOSCOPY, POLYPECTOMY, REMOVAL LESION BY SNARE performed by Nohemi Jaimes MD at [facility] ENDOSCOPY ??? PRO ENDOSCOPY W/VIDEO-ASST VEIN HARVEST, CABG Right 07/07/2017 ENDOSCOPIC HARVEST VEIN(S) FOR CABG (WRVU 0.31) performed by Yuan Retana MD at [facility] OR ??? PRO THYROIDECTOMY 03/28/2013 THYROIDECTOMY, TOTAL OR COMPLETE performed by Manny Mcknight MD at [facility] MAIN OR FAMILY HISTORY History reviewed. No pertinent family history. PHYSICAL EXAMINATION Body mass index is 28.74 kg/(m^2). BP (!) 87/45 Pulse 66 Ht 172.7 cm (5' 8) Wt 85.7 kg (189 lb) SpO2 100% BMI 28.74 kg/m2 BP low- denies dizzy/lightheaded, but does feel drowsy Appearance/ Behavior Well groomed, good eye contact, relaxed, cooperative, slurred speech, drowsy, no acute distress. Appropriate, pleasant mood. Accompanied by . Eyes Pupils round and equal, extraoccular movements intact. No conjunctival injection or excessive tearing. Sclera non-icteric. ENT Hearing grossly intact Lungs Clear to auscultation bilaterally, non-labored. Cardiovascular Rate and rhythm regular without murmur. Skin Red mottled right forefoot and toes (worst 1st, 2nd, 3rd toes), some ecchymosis underneath the toes. 1cm, closed blisters on the great and second toes of the right foot. Red, dry patch on the right posterior calf. Well healing surgical wound on right interior popliteal area. Vascular warm to touch, unable to palpate radial and dorsalis pedis pulses, +3 edema in the bilateral feet, right calf with swelling compared to right Focused Musckuloskeletal/Neurological Gait steady, nonantalgic, no ambulatory aides. 5/5 strength inbilateral lower extremity muscle groups, except 3/5 strength with right foot dorsiflexion, plantar flexion, and great toe extension (likely due to pain/swelling, less consistent with weakness). Decreased sensation in R>L feet. Position sense intact bilaterally, vibratory sense not intact bilaterally. ASSESSMENT Mr. Fatima has acute right foot pain secondary to peripheral vascular disease and ischemia. He is taking tramadol and dilaudid without significant relief, and drowsiness/sedation. He has symptoms consistent with neuropathic pain. PLAN/RECOMMENDATIONS 1. Recommend discontinuing Dilaudid, as he is extremely drowsy and somewhat sedated during our appointment today. Recommend continuing tramadol 50 mg every 6 hours as needed, if his PCP is in agreementand willing to prescribe it. 2. Prescribed gabapentin 100mg tablets, with titration schedule to increase to 300mg twice/day. Discussed common side effects, including drowsiness. Explained that he should not stop it suddenly if he is taking it consistently, due to risk of seizure. His last GFR on 07/27/17 was 46, so he will require bid dosing (see below). I have prescribed this medication for him today because his primary care is out of the office and I wanted him to started immediately. However, I have explained that his primary care provider can take over prescribing it in the future, and he can discuss further increases with her. Dosage Based on Renal Function Creatinine clearance Dosing regime (mg/day) >60 900-3600 300 TID 400 TID 600 TID 800 TID 1200 TID 30-59 400-1400 200 BID 300 BID 400 BID 500 BID 700 BID 15-29 200-700 200 QD 300 QD 400 QD 500 QD 700 QD <15 100-300 100 QD 125 QD 150 QD 200 QD 300 QD Hemodialysis 125 150 200 250 350 3. Prescribed lidocaine patches to apply to the right foot for 12 hours, as there was an issue with getting this approved yesterday in the ED. 4. Encouraged he and his to assess his right foot for ulcers/sores twice per day, as he has a history of diabetes. 5. Discuss low blood pressure and edema in the bilateral legs with PCP. 6. Future considerations include: - Compounded pain cream - Low dose naltrexone (he would not be able to start this until he has weaned completely off of tramadol) - Spinal cord stimulator for ischemic limb pain Discussed that it is unclear whether his symptoms will improve or worsen at this time ( reports that the coloring in his foot has improved since yesterday), so I would like to start with the above conservative treatments and reassess in 6-8 weeks. Follow up in mid-August, discussed that he can cancel the appointment if his pain has improved. Don Fatima had the opportunity to ask questions and indicated that all questions were answered to his satisfaction. Thank you for this referral, Lovely Vicente MD [phone] [place] [address]. [facility] Soares, MSN, SUPERVISOR [employer], FERMENTATION OPERATOR Nurse Practitioner [facility] documented in this encounter Plan of Treatment Upcoming Encounters Date Type Specialty Care Team Description 02/19/2022 Laboratory Appointment Lab 02/19/2022 Office Visit Cardiology Liz Poole PA 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
--- OUTSIDE RECORDS SUMMARY | 2022-02-06 13:35 | XMS_ITS | Encounter Summary ---
:1945 Author Organization [facility] [place] [address] Care Team Providers Name Role Phone Lovely Vicente MD Primary Care Provider Reason for Visit Auth/Cert Specialty Diagnoses / Procedures Referred By Contact Refer red To Contact Diagnoses Critical lower limb ischemia CELLULITIS RT FOOT Procedures EMERGENCY Referral ID Status Reason Start Date Expiration Date Visits Requ ested Visits Authorized [id number] 1 1 Encounter Details Date Type Department Care Team Description 08/09/2017 Surgery Main Operating Room Yonathan Smith AM PUTATION, Mary Hitchcock MD TRANSMETATARSAL ([facility] 12.71) [facility] [address] [place] [address] [place] [address] [phone] Social History Tobacco Use Types Packs/Day Years [...] 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 Patient [...] Dorsalis Pedis (Ankle) Artery ?132 ? 0.94 ??Story-Biphasic ? Posterior Tibial (Ankle) Artery ??154 ? 1.10 ??Story-Biphasic ? Fourth Toe ? 67 ?0.48 ?? [...] the foot. Discharge Conditions/Prognosis: Good Discharge to: [facility] Rehab Discharge Medications: Your Medications New Medications [...] 0 Continued medications, unchanged Dose Details ACCU-CHEK ETRA PLUS TEST STRP Strp 2-3 times daily [...] nurses will change wound vac dressing on Mon/Wed/Wed schedule or every 2-3 days. Youcan shower on dressing change days; remove dressing, shower allowing soap and water to cleanse the wound, pat dry and replace dressing. Wet-to-dry dressing can be used in case of vac malfunction or forclinic apts. For any problems or questions please call [phone] ZELDA Smith, unit manager convenience stores Nurse Clinician For issues on weeknights after 5pm and weekends please call [phone] and ask for the Vascular Fellow educational therapy teacher. General Instructions None Future Appointments and Orders Future Appointments Provider Department Dept Phone 08/26/2017 4:00 PM Aurelia Rivera PA Vascular Surgery at [place] [phone] 09/07/2017 3:00 PM LAB, THREE L Lab 3L [facility] [phone] 09/07/2017 4:00 PM Luz Prescott MD Endocrinology at [place] [phone] 09/09/2017 8:00 AM Barbra Soares APRN Pain Management at [place] [phone] Please bring a list of your current [...] For any problems or questions please call [phone] ZELDA Smith, unit manager convenience stores Nurse Clinician For issues on weeknights after 5pm and weekends please call [phone] and ask for the Vascular Fellow educational therapy teacher. documented in this encounter Medications at Time [...] of Care Management Discharge Note Patient Destination: [facility] ([facility]) [address] [id number] Transportation: with (at bedside) Time of Discharge: by 12 noon Level of Care: swing Patient Aware: yes Family Notified: yes Md to call report to: Yissel Quintero PATIENT SUPPORT SPECIALIST already called RN to call report to: [phone] Shirin Wolf Office of Care Management Pager [phone] Shirin Wolf RN - 08/16/2017 10:50 AM EST [facility] swing bed. Pt and accept bed. will transport via car. PATIENT SUPPORT SPECIALIST Yissel Quintero aware; d/c paperwork will be completed by 12 noon. [facility] requests pt arrival by 1400 today; PATIENT SUPPORT SPECIALIST, RN, and family aware. PATIENT SUPPORT SPECIALIST called [facility] and was told that they prefer pt to arrive with wound vac dressing applied but clamped. PATIENT SUPPORT SPECIALIST applied new wound vac dressing. RN has [facility] number to call report. PASSR completed; PATIENT SUPPORT SPECIALIST paged to request provider signature in highlighted space. Indigo from [facility] notified via email that home wound vac now cancelled; [facility] has picked up from room and order cancelled. Packet started and provided to gunstock spray unit adjuster. Medicare important message explained to patient, patient signed. Copy provided to patient and signature page to OCM for inclusion in pt EMR. L Radha Powers Yoselin - 08/16/2017 10:34 AM EST Office of Care Management/Jet Handler Patient Name: Gregory Hoang : 1945 Patient has been offered a swing bed at [facility]. The patient will be transported by private transportation. No MD to MD report necessary Please call Nursing Report to [phone], ask for adjutant general. Info to accompany patient: Narcotic Prescriptions Copies of Medication Administration Records and IV sheets for past 10 days. Plan: Jet Handler will be available to the patient and Dip Stand Loader-RN and/or Smoke Jumper for further assistance. Patient will be discharged to: [address] [place] [id number] Radha Powers, Jet Handler Mira Truong, VAMSI - 08/15/2017 10:05 PM EST [address] Flores to ask if he wanted to hold metoprolol dose. BP 95/58. OK to hold this dose Courtney Brito - 08/15/2017 3:26 PM EST Office of Care Management(OCM)/Jet Handler(RS)/ D/C Planning re : Patient is medically ready for d/c today. RS has been in contact with [facility] to see if they could offer a bed. [facility] is still reviewing the case and need their MD to review chart prior to accepting or declining. OCM team needs to check in with [facility] tomorrow to check on status. 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 Vac in place. Rehab referrals ongoing. Can ambulate in hallway. Change VAC at bedside today. Naty Colindres RN - 08/14/2017 1:33 PM EST Patient Name: Gregory Hoang Patient Age: 72 y.o. Birthdate: 1945 Admit date: 08/06/2017 Attending Physician: Yonathan Smith MD We want him to go to a place for intensive therapy and not at a half-way where he will be just sitting there and not getting any therapy. . Contacted by direct care RN, who said that patient and would like information about patient's referral to: [facility] PHONE: [phone] FAX: [phone] CM spoke with RS who said that [...] would be accepted to acute rehab at [facility] as Dr. Smith had recommended . Last [...] rehab. Await recommendations from PT. Covering pager #[phone]. 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 Skin Grader Kaitlin Saha, RN Pager #[phone] Payam Rosales - 08/13/2017 2:37 PM EST Conveyor Mechanic Encounter Note Patient Name: Gregory Hoang : [id number] MR#: [id number] Admit Date: 08/06/2017 1:41 PM Hospital Day 7 days Narrative: Visited to introduce and assess acceptance of Conveyor Mechanic services. Pt was awake, alert, oriented and in chair and family was there. Assessment:Patient coping positively with stresses of illness/hospitalization at this time. Pt says that he is hoping to get better and his family was there. Pt says that he has family care and supportand taking one day at time. Intervention and Outcome: Provided emotional support and encouraging presence. 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 A letter describing our affiliations was reviewed with them and theywere educated about their right to choose where referrals are placed. Patient requests referral to [facility]. PHONE: [phone] FAX: [phone]. And Home NPWT (Negative Pressure Wound Therapy) aka wound vac device made available to pt. Serial # confirmed. Reviewed [facility] Proof of Delivery/Assignment of Benefits Statement(POD/AOB) Form w patient or authorized agent signing on behalf of patient. Copy of POD/AOB provided to pt and other copy faxed to [employer] @ fax# [phone] Expected date of discharge: 08/12/2017. Referral routed to the Jet Handler for matching with agency/vendor and to provide any required information. Yonathan Starkey MD - 08/12/2017 8:05 AM EST vasc staff: Pain better. Needs ambulatory assessment. Try to use heel block shoe, if not flat shoe ok. 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 Address: [address] [place] [address] [place] [address] (home) Mobile: Telephone Information: Referring Provider: No [...] performed by Manny Mcknight MD at [facility] MAIN OR ??? PRO CABG, ARTERIAL, SINGLE N/A 07/07/2017 @CABG, USING ARTERIAL GRAFT;SINGLE ARTERIAL GRAFT (WRVU 33.75) performed by Yuan Retana MD at [facility] MAIN OR ??? PRO CABG, ARTERY-VEIN, TWO N/A 07/07/2017 @CABG, TWO VENOUS GRAFTS & ARTERIAL GRAFT (WRVU 7.93) performed by Yuan Retana MD at [facility] MAIN OR ??? PRO COLONOSCOPY, REMV LESN, SNARE 01/16/2014 COLONOSCOPY, POLYPECTOMY, REMOVAL LESION BY SNARE performed by Nohemi Jaimes MD at [facility] ENDOSCOPY ??? PRO ENDOSCOPY W/VIDEO-ASST VEIN HARVEST, CABG Right 07/07/2017 ENDOSCOPIC HARVEST VEIN(S) FOR CABG (WRVU 0.31) performed by Yuan Retana MD at [facility] MAIN OR ??? PRO THYROIDECTOMY 03/28/2013 THYROIDECTOMY, TOTAL OR COMPLETE performed by Manny Mcknight MD at [facility] MAIN OR Date/Procedure Med's given/comments 08/10/17 RLE angio with multiple FEEDER OPERATOR to R posterior tibial artery Fentanyl 200 [...] apply another for 12 hours more. 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 Heparin gtt continues to run. [...] of : 1945 AGE 72 y.o. Address: [address] [place] [address] [place] [address] (home) Mobile: Telephone Information: Referring Provider: No [...] performed by Manny Mcknight MD at [facility] MAIN OR ??? PRO CABG, ARTERIAL, SINGLE N/A 07/07/2017 @CABG, USING ARTERIAL GRAFT;SINGLE ARTERIAL GRAFT (WRVU 33.75) performed by Yuan Retana MD at [facility] MAIN OR ??? PRO CABG, ARTERY-VEIN, TWO N/A 07/07/2017 @CABG, TWO VENOUS GRAFTS & ARTERIAL GRAFT (WRVU 7.93) performed by Yuan Retana MD at [facility] OR ??? PRO COLONOSCOPY, REMV LESN, SNARE 01/16/2014 COLONOSCOPY, POLYPECTOMY, REMOVAL LESION BY SNARE performed by Nohemi Jaimes MD at [facility] ENDOSCOPY ??? PRO ENDOSCOPY W/VIDEO-ASST VEIN HARVEST, CABG Right 07/07/2017 ENDOSCOPIC HARVEST VEIN(S) FOR CABG (WRVU 0.31) performed by Yuan Retana MD at [facility] MAIN OR ??? PRO THYROIDECTOMY 03/28/2013 THYROIDECTOMY, TOTAL OR COMPLETE performed by Manny Mcknight MD at [facility] MAIN OR Date/Procedure Meds given/comments No Prior [...] AM EST Vascular Surgery Progress Note ID: Gergory Hoang is a 72 y.o. 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 Unsuccessful draw attempt, another electrician ship will come [facility] to collect blood for PTT test. 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 Vascular resident educational therapy teacher and will forward result to the team prior to rounds. 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 Continue pain control, IV antibiotics, and heparin infusion. Given that his disease appears to be diabetic, and tibial - pedal, planning for angiography early this week to delineate anatomy and determine revascularization options. Shubham Mayorga, Vascular Surgery Mira Truong RN - 08/06/2017 8:[address] Vargas for pain medication. Pt in considerable pain and tylenol and tramadol are not available to him until 5. 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 Patient [...] FACIAL NERVE MONITORING, SETUP performed by Manny Mckinght MD at [facility] MAIN OR ??? PRO CABG, ARTERIAL, SINGLE N/A 07/07/2017 @CABG, USING ARTERIAL GRAFT;SINGLE ARTERIAL GRAFT (WRVU 33.75) performed by Yuan Retana MD at [facility] MAIN OR ??? PRO CABG, ARTERY-VEIN, TWO N/A 07/07/2017 @CABG, TWO VENOUS GRAFTS & ARTERIAL GRAFT (WRVU 7.93) performed by Yuan Retana MD at [facility] MAIN OR ??? PRO COLONOSCOPY, REMV LESN, SNARE 01/16/2014 COLONOSCOPY, POLYPECTOMY, REMOVAL LESION BY SNARE performed by Nohemi Jaimes MD at [facility] ENDOSCOPY ??? PRO ENDOSCOPY W/VIDEO-ASST VEIN HARVEST, CABG Right 07/07/2017 ENDOSCOPIC HARVEST VEIN(S) FOR CABG (WRVU 0.31) performed by Yuan Retana MD at [facility] MAIN OR ??? PRO THYROIDECTOMY 03/28/2013 THYROIDECTOMY, TOTAL OR COMPLETE performed by Manny Mcknight MD at [facility] MAIN OR Functional Status/Social Hx: Quit smoking [...] left blue toes with CTA showing R ASSOCIATE VETERINARIAN pseudoaneurysm (now thrombosed) and occluded ATs bilaterally. [...] 2.5x80 5. Completion RLE angiogram 6. L ASSOCIATE VETERINARIAN angiogram 7. 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 - L ASSOCIATE VETERINARIAN angriogram demonstrated: High femoral bifurcation over the proximal half of the femoral head. L ASSOCIATE VETERINARIAN access in the distal L ASSOCIATE VETERINARIAN. - Closure device: Mynx Technical Procedure: The [...] for a 45cm 5F Destination. V18 and [place] and QuickCross catheters were used to select [...] 5F. A stationed picture of the L ASSOCIATE VETERINARIAN was performed as the patient was noted to have a very high bifurcation. Access appeared in the distal R ASSOCIATE VETERINARIAN. Closure and sheath removal was performed with [...] PM EST 1440 report called to 5 [place] nurse Tessa RN documented in this encounter Miscellaneous Notes Plan of Care - Dory Truong RN - 08/16/2017 10:51 AM EST Problem: Patient Care Overview Goal: Plan of Care Review Outcome: Outcome (s) achieved Date Met: 08/16/17 08/14/17 1939 08/16/17 0751 Coping/Psychosocial Plan Of Care Reviewed With -- patient Plan of Care Review Progress improving -- Discussed discharge instructions with pt and pt's spouse. Discharge to [facility]. Goal: Individualization & Mutuality Outcome: Outcome (s) [...] sit/sit to supine -- Bed Mobility Goal, Levy Level independent -- Bed Mobility Goal, Date [...] days -- Transfer Training Goal, Activity Type gpo-bf-rlcvp/bubnf-ay-lcm -- Transfer Train Goal, Levy Level conditional independence -- Transfer Train Goal, [...] call cabello within reach, Hourly rounding by RN/TOOL MAKER APPRENTICE. Bed alarm / Chair alarm. Patient-specific fall [...] Smith MD - 08/15/2017 6:28 PM EST [facility] Operative Note Patient Name: Gregory Hoang : [id number] MR#: [id number] Case Date: 08/09/2017 Surgeon: Surgeon(s) and Role: [...] 2.5x80 5. Completion RLE angiogram 6. L ASSOCIATE VETERINARIAN angiogram 7. Mynx closure Precautions/Restrictions: fall, sternal [...] other (see comments) (or swing bed) Pager: [phone] BASSAM ELIAS, PT 08/14/2017 Inpatient Physical Therapy [...] to Achieve by discharge Gait Training Goal, Levy Level conditional independence;set up required Gait Training [...] these facilities over the weekend except for [facility]. CM spoke with [facility] CM Drea Sandhu, VAMSI who said that they do not anticipate any beds over the weekend. Reviewed with patient/ that they need to be aware that patient will need to take the first bed offered at the facilities that they make referrals to. Their choices are: 1- [facility] PHONE: [phone] FAX: [phone] [facility] [address] [place] [address] 3- [facility] [address] [place] [address] I have discussed Medicare/Private Insurance reimbursement guidelines for ambulance transport. Discussed transportation options and patient and would like to have transport him. KANWAL said that team would need to talk with Dr. Smith to see if patient would need his extremity elevated for the duration of the transport and to confirm that wound vac could be removed for the duration of the transport. Will ask RS to upload referrals to facilities and will ask RS/CM on Wednesday to follow-up. Covering pager #[phone] for today. Plan of Care - Henrique Marks RN - 08/14/2017 5:49 AM EST Problem: Patient Care Overview Goal: Plan of Care Review Outcome: Ongoing (Interventions Implemented as Appropriate) 08/12/17 1510 08/13/171999 Coping/Psychosocial Plan Of Care Reviewed With -- patient Plan of Care Review Progress improving -- OUTCOME EVALUATION NOTE: OUTCOME SUMMARY: Pt is A/O x4, PERRCONSTANZA, Strengths 11/27. Pt required around the clock [...] with additional findings of pseudoaneurysm on R ASSOCIATE VETERINARIAN and bilateral anterior tibial artery occlusions. Was [...] an outpatient once discharged. Have patient call [phone] to set up an appointment. Follow-up: Dermatology will sign-off for now. Please do not hesitate to contact us if you have any questions orconcerns. Impression and Recommendations discussed with primary team on 08/13/2017. Karo Henderson MD Resident in Dermatology Section of Dermatology, Department of Surgery [facility] Pager [phone] Patient seen and evaluated with staff Land Leasing Examiner: Halima Cordeor MD Section of Dermatology [facility] Level of Resident Supervision: Direct Supervision (The [...] on Surveillance [continuous indirect monitoring]: Purposeful rounding, Ernestine Patient-specific fall prevention interventions for sensory deficits provided, if applicable: N CPG GOAL OUTCOME EVALUATION: Plan of Care - Yasir Tello OT - 08/12/2017 3:41 PM EST Problem: Patient Care Overview Goal: Plan of Care Review Outcome: Ongoing (Interventions Implemented as Appropriate) 08/12/17 0506 Coping/Psychosocial Plan Of Care Reviewed With patient;spouse [...] 2.5x80 5. Completion RLE angiogram 6. L ASSOCIATE VETERINARIAN angiogram 7. Mynx closure Active Non-Hospital Problems [...] home with home health ([facility] PT[facility]OT) Pager: [phone] YASIR TELLO OT 08/12/2017 Occupational Therapy Rehabilitation [...] 2.5x80 5. Completion RLE angiogram 6. L ASSOCIATE VETERINARIAN angiogram 7. Mynx closure Past Medical History: [...] with 24/7 assistance and maximal services) Pager: [phone] NICHOLAS MORA, PT 08/12/2017 Physical Therapy Rehabilitation [...] sit/sit to supine -- Bed Mobility Goal, Levy Level independent -- Bed Mobility Goal, Outcome Achieved -- goal ongoing Goal: Gait Training Goal Stand Alone Therapy Goal Outcome: Ongoing (Interventions Implemented as Appropriate) 08/11/17 1310 08/12/17 1510 Gait Training Goal Gait Training Goal, Date Established 08/11/17 -- Gait Training Goal, Time to Achieve 5 - 7 days -- Gait Training Goal, Levy Level conditional independence -- Gait Training Goal, [...] days -- Transfer Training Goal, Activity Type zik-vi-qwbtr/dovhg-sk-ypg -- Transfer Train Goal, Levy Level conditional independence -- Transfer Training Goal, [...] Smith MD - 08/11/2017 2:52 PM EST [facility] Operative Note Patient Name: Gregory Hoang : [id number] MR#: [id number] Case Date: 08/11/2017 Surgeon: Surgeon(s) and Role: [...] 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 Completion RLE angiogram 6. L ASSOCIATE VETERINARIAN angiogram 7. Mynx closure He is very [...] Anticipated Discharge Disposition: inpatient rehabilitation facility Pager: [phone] LAWRENCE GONZALEZ, PT 08/11/2017 Physical Therapy Rehabilitation [...] to sit/sit to supine Bed Mobility Goal, Levy Level independent Goal: Gait Training Goal Stand Alone Therapy Goal Outcome: Ongoing (Interventions Implemented as Appropriate) 08/11/17 1310 Gait Training Goal Gait Training Goal, Date Established 08/11/17 Gait Training Goal, Time to Achieve 5 - 7 days Gait Training Goal, Levy Level conditional independence Gait Training Goal, Assist [...] 7 days Transfer Training Goal, Activity Type sce-xz-wigfn/xqqbd-jl-hoh Transfer Train Goal, Levy Level conditional independence Plan of David DelloAnnetta castillo RN - 08/11/2017 7:21 AM EST Problem: [...] call cabello within reach, Hourly rounding by RN/TOOL MAKER APPRENTICE. Bed alarm / Chair alarm. ? Patient-specific [...] 04/05/2013 Hospitalizations Within the Past 30 Days: [facility] 07/20/2017 Anticipated Length Of Stay (If known): Expected Length of Hospitalization: 5-7 days2-3 days Current Decision-Making Capacity: Alert and oriented x 4 Advance Care Planning: on file Kisha Hoang [facility] [phone] Current Coping/Education/Information Needs: pt and spouse state [...] Health/Prescription Coverage: Primary Insurance: MEDICARE Secondary Insurance: [employer] [place] Prescription Coverage: See above Preferred Pharmacy: [facility] [employer] Other: N/A Primary Care Provider: Lovely Vicente MD [phone] Patient/Caregiver Goals of Treatment: Patient plans to return home when medically ready Potential Needs for Transition of Care: Rehab/SNF: N/A Home Health: [facility] DME: pt has a cane and walker [...] of care planning. Kaitlin Saha RN Pager: [phone] Plan of Care - Melba Jaramillo RN [...] Overview Goal: Plan of Care Review 08/08/17 7034 Coping/Psychosocial Plan Of Care Reviewed With patient [...] call cabello within reach, Hourly rounding by RN/TOOL MAKER APPRENTICE. Bed alarm / Chair alarm. Patient-specific fall prevention interventions for sensory deficits provided, if applicable: [X] Yes CPG GOAL OUTCOME EVALUATION: Goal: Fall Prevention-Safe Patient Handling Outcome: Ongoing (Interventions Implemented as Appropriate) 08/06/17 1700 08/06/17199908/07/17 4304 Positioning Body Position -- up in chair [...] at bedside and MD TEAM Carrying pager [phone] contacted (via Radio page) and notified of [...] Liz Poole PA [facility] er Cardiology Dept [place], [place] [address] (Wo rk) 03/12/2022 Office Visit Cardiology Vitaliy Nobles MD [facility] CARDIOLOGY [place], [place] [address] (Wo rk) documented as of [...] n the results section. (MSURG) DRESSING CHANGE Routine 08/11/2017 2:01 (FOR [...] section. TYPE AND SCREEN Routine 08/09/2017 1:10 ([facility] [place] AM EST BASIC METABOLIC PANEL Routine 08/09/2017 [...] Signature POC Glucose 160 65 - 199 [facility] mg/dL [facility]ORY Comment: Supplemental ranges: <140 mg/dL before meals <180 mg/dL all other times of the day Specimen Anatomical Collection Method Collection Time Receive d Time (Source) Location / / Volume Laterality Blood specimen 08/16/2017 7:28 AM 018 7:28 (specimen) EST AM EST Yonathan Smiht MD POINT OF CARE TEST ORDERABLE S Performing Organization Address City/State/[place] [address] (ABNORMAL) Differential, Automated (08/16/2017 5:08 AM EST) Patholo gist Method Time Signature Neutrophils % 73.9 % [facility] LABORATORY Neutr Abs (ANC) 5.37 1.70 - [facility] 6.10 [facility] x10(3)/[facility] LABORATORY Lymphocytes % 10.1 % [facility] Lymphocytes Abs 0.7 (L) 0.9 - 3.2 [facility] x10(3)/[facility] LABORATORY Monocytes % 10.1 % [facility] Monocyte Abs 0.7 0.3 - 0.9 [facility] x10(3)/[facility] LABORATORY Eosinophils % 5.1 % [facility] Eosinophils Abs 0.4 0.0 - 0.4 [facility] x10(3)/[facility] LABORATORY Basophils % 0.4 % [facility] Basophils Abs 0.0 0.0 - 0.1 [facility] x10(3)/[facility] LABORATORY Immature Gran % 0.40 % [facility] Comment: Immature granulocytes(IG's)percentage an d absolute count will include metamyelocytes, myelocytes, and promyelo cytes. Blood smears from CBCs yielding IG's will be scanned manually for concor dance. If this scan disagrees with the automated IG or if promyelocytes are not ed, a manual differential will be performed. Melisa Gran Abs 0.03 0.00 - 0.04 x10(3)/[facility] LABORATORY Specimen Anatomical Collection Method Collection Time Receive d Time (Source) Location / / Volume Laterality Blood specimen 08/16/2017 5:08 AM 018 5:20 (specimen) EST AM EST Resulting Agency Comment Spec In Lab Yonathan Smith MD HEMATOLOGY ORDERABLES Performing Organization Address City/State/[place] [address] (ABNORMAL) Hemogram (08/16/2017 5:08 AM EST) Analysis Performed At Patho logist Time Signature WBC 7.3 4.0 - 9.5 [facility] x10(3)/[facility] LABORATORY RBC 3.36 (L) 4.58 - [facility] 5.54 [facility] x10(6)/[facility] LABORATORY Hemoglobin 9.7 (L) 13.7 - [facility] 16.5 gm/dL [facility] Hematocrit 30.3 (L) 40.5 - [facility] 48.5 % [facility] MCV 90.2 82.9 - [facility] 93.1 [facility] LABORATORY MCH 28.9 27.5 - [facility] DAV[facility] 32.1 pg [facility] MCHC 32.0 32.0 - [facility] 35.7 gm/dL [facility] Platelets 282 145 - 357 [facility] x10(3)/[facility] LABORATORY RDWSD 53.9 (H) 36.0 - [facility] 45.0 [facility] LABORATORY RDWCV 16.5 (H) 11.4 - [facility] 13.8 % [facility] LABORATORY MPV 9.0 7.6 - 12.9 [facility] LABORATORY nRBC % Auto 0.0 % [facility] nRBC Abs Auto 0.000 0.000 - [facility]HAORY[facility] 0.000 [facility] x10(3)/[facility] LABORATORY Specimen Anatomical Collection Method Collection Time Receive d Time (Source) Location / / Volume Laterality Blood specimen 08/16/2017 5:08 AM 018 5:20 (specimen) EST AM EST Resulting Agency Comment Spec In Lab Yonathan Smith MD HEMATOLOGY ORDERABLES Performing Organization Address City/State/ZIP [place] [address] (ABNORMAL) Basic Metabolic Panel (non-fasting) (08/16/2017 5:08 AM EST) P athologist Signature Glucose Lvl 141 65 - 199 [facility] mg/dL [facility] Comment: Diabetes: >=200 mg/dL plus symp toms BUN 29 (H) 10 - 20 mg/dL [facility] LABORATORY Creatinine 1.25 0.80 - 1.50 mg/dL [facility] LABORATORY Sodium 140 135 - 145 mmol/L [facility] LABORATORY Potassium 4.5 3.5 - 5.0 mmol/L [facility] LAB[facility] Comment: Please note: ??Patients with WBC >100,00 0 may have falsely elevated Potassium levels. ??For accurate Potassium quantif ication in these patients send serum separator tube (gold top) for subsequent determinations. ??Contact the Clinical Chemistry Laboratory if there are any qu estions. Chloride 99 98 - 107 mmol/L [facility] CO2 28 22 - 31 mmol/L [facility] Anion Gap 13 5 - 15 mmol/L [facility] LABORATORY Calcium 8.7 8.5 - 10.5 mg/dL [facility] LABORATORY Estimated GFR 57 (L) >=60 [facility] Comment: The reported eGFR should be multiplied b y 1.2 for patients. The MDRD is not an appropriate measure o f renal function for patients with body mass extremes or in patients with acute kidney failure. [email or web address] [email or web address] [email or web address] [email or web address] Specimen Anatomical Collection Method Collection Time Receive d Time (Source) Location / / Volume Laterality Blood specimen 08/16/2017 5:08 AM 018 5:20 (specimen) EST AM EST Resulting Agency Comment Spec In Lab Yonathan Smith MD CHEMISTRY ORDERABLES Performing Organization Address City/State/Z[place] [address] (ABNORMAL) Prothrombin Time (08/16/2017 5:08 AM EST) P athologist Signature PT 25.2 (H) 11.8 - 14.0 [facility] LABORATORY INR 2.3 (H) 0.9 - 1.1 [facility] Comment: An INR <2.0 indicates adequate [...] Organization Address City/State/ZIP Code Phon e Number [address] POCT Glucose (08/16/2017 4:09 AM EST) athologist Signature POC Glucose 147 65 - 199 [place] mg/dL [facility] Comment: Supplemental ranges: <140 mg/dL before meals <180 mg/dL all other times of the day Specimen Anatomical Collection Method Collection Time Receive d Time (Source) Location / / Volume Laterality Blood specimen 08/16/2017 4:09 AM 018 4:09 (specimen) EST AM EST Yonathan Smith MD POINT OF CARE TEST ORDERABLE S Performing Organization Address City/[facility]/ZIP Code Phon e Number [address] POCT Glucose (08/15/2017 11:56 PM EST) athologist Signature POC Glucose 176 65 - 199 [facility] ZHAORYAN mg/dL [facility] Comment: Supplemental ranges: <140 mg/dL before meals <180 mg/dL all other times of the day Specimen Anatomical Collection Method Collection Time Receive d Time (Source) Location / / Volume Laterality Blood specimen 08/15/2017 11:56 8 (specimen) PM EST 11:56 PM EST Yonathan Smith MD POINT OF CARE TEST ORDERABLE S Performing Organization Address City/[facility]/[place] [address] POCT Glucose (08/15/2017 8:05 PM EST) athologist Signature POC Glucose 136 65 - 199 [facility] mg/dL [facility] Comment: Supplemental ranges: <140 mg/dL before meals <180 mg/dL all other times of the day Specimen Anatomical Collection Method Collection Time Receive d Time (Source) Location / / Volume Laterality Blood specimen 08/15/2017 8:05 PM 018 8:05 (specimen) EST PM EST Yonathan Smith MD POINT OF CARE TEST ORDERABLE S Performing Organization Address City/State/[place] [address] (ABNORMAL) POCT Glucose (08/15/2017 4:50 PM EST) athologist Signature POC Glucose 232 (H) 65 - 199 [facility] mg/dL [facility] Comment: Supplemental ranges: <140 mg/dL before meals <180 mg/dL all other times of the day Specimen Anatomical Collection Method Collection Time Receive d Time (Source) Location / / Volume Laterality Blood specimen 08/15/2017 4:50 PM 018 4:50 (specimen) EST PM EST Yonathan Smith MD POINT OF CARE TEST ORDERABLE S Performing Organization Address City/State/ZIP Code Phon e Number [address] POCT Glucose (08/15/2017 12:04 PM EST) athologist Signature POC Glucose 135 65 - 199 [facility] mg/dL [facility] Comment: Supplemental ranges: <140 mg/dL before meals <180 mg/dL all other times of the day Specimen Anatomical Collection Method Collection Time Receive d Time (Source) Location / / Volume Laterality Blood specimen 08/15/2017 12:04 8 (specimen) PM EST 12:04 PM EST Yonathan Smith MD POINT OF CARE TEST ORDERABLE S Performing Organization Address City/State/ZIP Code Phon e Number [address] POCT Glucose (08/15/2017 7:36 AM EST) athologist Signature POC Glucose 124 65 - 199 [facility] mg/dL [facility] Comment: Supplemental ranges: <140 mg/dL before meals <180 mg/dL all other times of the day Specimen Anatomical Collection Method Collection Time Receive d Time (Source) Location / / Volume Laterality Blood specimen 08/15/2017 7:36 AM 018 7:36 (specimen) EST AM EST Yonathan Smith MD POINT OF CARE TEST ORDERABLE S Performing Organization Address City/State/[place] [address] (ABNORMAL) Differential, Automated (08/15/2017 6:22 AM EST) Patholo gist Method Time Signature Neutrophils % 76.1 % [facility] Neutr Abs (ANC) 6.62 (H) 1.70 - [facility] 6.10 [facility] x10(3)/[facility] LABORATORY Lymphocytes % 9.3 % [facility]OR[facility]ORY Lymphocytes Abs 0.8 (L) 0.9 - 3.2 [facility] x10(3)/[facility] LABORATORY Monocytes % 9.4 % [facility] Monocyte Abs 0.8 0.3 - 0.9 [facility] x10(3)/[facility] LABORATORY Eosinophils % 4.0 % [facility] Eosinophils Abs 0.4 0.0 - 0.4 [facility] x10(3)/[facility] LABORATORY Basophils % 0.6 % [facility] Basophils Abs 0.0 0.0 - 0.1 [facility] x10(3)/[facility] LABORATORY Immature Gran % 0.60 % [facility] Comment: Immature granulocytes(IG's)percentage an d absolute count will include metamyelocytes, myelocytes, and promyelo cytes. Blood smears from CBCs yielding IG's will be scanned manually for concor dance. If this scan disagrees with the automated IG or if promyelocytes are not ed, a manual differential will be performed. Melisa Gran Abs 0.05 (H) 0.00 - 0.04 x10(3)/[facility] LABORATORY Specimen Anatomical Collection Method Collection Time Receive d Time (Source) Location / / Volume Laterality Blood specimen 08/15/2017 6:22 AM 018 6:33 (specimen) EST AM EST Resulting Agency Comment Spec In Lab Yonathan Smith MD HEMATOLOGY ORDERABLES Performing Organization Address City/State/[place] [address] (ABNORMAL) Hemogram (08/15/2017 6:22 AM EST) Analysis Performed At Path logist Time Signature WBC 8.7 4.0 - 9.5 [facility] x10(3)/[facility] LABORATORY RBC 3.21 (L) 4.58 - [facility] ZHAORYAN 5.54 [facility] x10(6)/[facility] LABORATORY Hemoglobin 9.1 (L) 13.7 - [facility] 16.5 gm/dL [facility] Hematocrit 29.0 (L) 40.5 - [facility] 48.5 % [facility] LABOR[facility]ORY MCV 90.3 82.9 - [facility] 93.1 [facility] LABORATORY MCH 28.3 27.5 - [facility] 32.1 pg [facility]ORY MCHC 31.4 (L) 32.0 - [facility] 35.[facility] gm/dL [facility] Platelets 254 145 - 357 [facility] x10(3)/[facility] LABORATORY RDWSD 53.9 (H) 36.0 - [facility] 45.0 [facility] LABORATORY RDWCV 16.3 (H) 11.4 - [facility] 13.8 % [facility] LABORATORY MPV 8.8 7.6 - 12.9 [facility] LABORATORY nRBC % Auto 0.0 % [facility] LABORATORY nRBC Abs Auto 0.000 0.000 - [facility] 0.000 [facility] x10(3)/[facility] LABORATORY Specimen Anatomical Collection Method Collection Time Receive d Time (Source) Location / / Volume Laterality Blood specimen 08/15/2017 6:22 AM 018 6:33 (specimen) EST AM EST Resulting Agency Comment Spec In Lab Yonathan Smith MD HEMATOLOGY ORDERABLES Performing Organization Address City/State/ZIP [place] [address] (ABNORMAL) Basic Metabolic Panel (non-fasting) (08/15/2017 6:22 AM EST) P athologist Signature Glucose Lvl 118 65 - 199 [facility] mg/dL [facility] Comment: Diabetes: >=200 mg/dL plus symp toms BUN 27 (H) 10 - 20 mg/dL [facility] LABORATORY Creatinine 1.12 0.80 - 1.50 mg/dL [facility] LABORATORY Sodium 138 135 - 145 mmol/L [facility] LABORATORY Potassium 4.6 3.5 - 5.0 mmol/L [facility] LABORATORY Comment: Please note: ??Patients with WBC >100,00 0 may have falsely elevated Potassium levels. ??For accurate Potassium quantif ication in these patients send serum separator tube (gold top) for subsequent determinations. ??Contact the Clinical Chemistry Laboratory if there are any qu estions. Chloride 98 98 - 107 mmol/L [facility] CO2 29 22 - 31 mmol/L [facility] Anion Gap 11 5 - 15 mmol/L [facility] LABORATORY Calcium 8.8 8.5 - 10.5 mg/dL [facility] LABORATORY Estimated GFR >60 >=60 [facility] LABOR[facility]ORY Comment: The reported eGFR should be multiplied b y 1.2 for patients. The MDRD is not an appropriate measure o f renal function for patients with body mass extremes or in patients with acute kidney failure. [email or web address] [email or web address] [email or web address] [email or web address] Specimen Anatomical Collection Method Collection Time Receive d Time (Source) Location / / Volume Laterality Blood specimen 08/15/2017 6:22 AM 018 6:33 (specimen) EST AM EST Resulting Agency Comment Spec In Lab Yonathan Smith MD CHEMISTRY ORDERABLES Performing Organization Address City/State/Z[place] [address] (ABNORMAL) Prothrombin Time (08/15/2017 6:22 AM EST) athologist Signature PT 21.9 (H) 11.8 - 14.0 [facility] LABORATORY INR 1.9 (H) 0.9 - 1.1 [facility] LABORATORY Comment: An INR <2.0 indicates adequate [...] Organization Address City/State/ZIP Code Phon e Number [address] POCT Glucose (08/15/2017 4:33 AM EST) athologist Signature POC Glucose 164 65 - 199 [place] mg/dL [facility]ORY Comment: Supplemental ranges: <140 mg/dL before meals <180 mg/dL all other times of the day Specimen Anatomical Collection Method Collection Time Receive d Time (Source) Location / / Volume Laterality Blood specimen 08/15/2017 4:33 AM 018 4:33 (specimen) EST AM EST Yonathan Smith MD POINT OF CARE TEST ORDERABLE S Performing Organization Address City/[facility]/ZIP Code Phon e Number [address] POCT Glucose (08/15/2017 12:12 AM EST) athologist Signature POC Glucose 89 65 - 199 [place] mg/dL [facility]ORY Comment: Supplemental ranges: <140 mg/dL before meals <180 mg/dL all other times of the day Specimen Anatomical Collection Method Collection Time Receive d Time (Source) Location / / Volume Laterality Blood specimen 08/15/2017 12:12 8 (specimen) AM EST 12:12 AM EST Yonathan Smith MD POINT OF CARE TEST ORDERABLE S Performing Organization Address City/[facility]/ZIP Code Phon e Number [address] (ABNORMAL) POCT Glucose (08/14/2017 8:07 PM EST) athologist Signature POC Glucose 204 (H) 65 - 199 [place] mg/dL [facility] Comment: Supplemental ranges: <140 mg/dL before meals <180 mg/dL all other times of the day Specimen Anatomical Collection Method Collection Time Receive d Time (Source) Location / / Volume Laterality Blood specimen 08/14/2017 8:07 PM 018 8:07 (specimen) EST PM EST Yonathan Smith MD POINT OF CARE TEST ORDERABLE S Performing Organization Address City/State/ZIP Code Phon e Number [address] POCT Glucose (08/14/2017 5:11 PM EST) athologist Signature POC Glucose 174 65 - 199 [facility] mg/dL [facility]OR[facility]ORY Comment: Supplemental ranges: <140 mg/dL before meals <180 mg/dL all other times of the day Specimen Anatomical Collection Method Collection Time Receive d Time (Source) Location / / Volume Laterality Blood specimen 08/14/2017 5:11 PM 018 5:11 (specimen) EST PM EST Yonathan Smith MD POINT OF CARE TEST ORDERABLE S Performing Organization Address City/State/ZIP Code Phon e Number [address] POCT Glucose (08/14/2017 12:10 PM EST) athologist Signature POC Glucose 141 65 - 199 [place] mg/dL [facility]ORY Comment: Supplemental ranges: <140 mg/dL before meals <180 mg/dL all other times of the day Specimen Anatomical Collection Method Collection Time Receive d Time (Source) Location / / Volume Laterality Blood specimen 08/14/2017 12:10 8 (specimen) PM EST 12:10 PM EST Yonathan Smith MD POINT OF CARE TEST ORDERABLE S Performing Organization Address City/State/ZIP Code Phon e Number [address] POCT Glucose (08/14/2017 8:07 AM EST) athologist Signature POC Glucose 158 65 - 199 [facility] mg/dL [facility]ORY Comment: Supplemental ranges: <140 mg/dL before meals <180 mg/dL all other times of the day Specimen Anatomical Collection Method Collection Time Receive d Time (Source) Location / / Volume Laterality Blood specimen 08/14/2017 8:07 AM 018 8:07 (specimen) EST AM EST Yonathan Smith MD POINT OF CARE TEST ORDERABLE S Performing Organization Address City/State/Z[place] [address] (ABNORMAL) Differential, Automated (08/14/2017 4:52 AM EST) [facility] Method Time Signature Neutrophils % 78.6 % [facility] LABORATORY Neutr Abs (ANC) 7.70 (H) 1.70 - [facility] 6.10 [facility] x10(3)/[facility] LABORATORY Lymphocytes % 7.8 % [facility] LABORATORY Lymphocytes Abs 0.8 (L) 0.9 - 3.2 [facility] x10(3)/[facility] LABORATORY Monocytes % 8.8 % [facility]ORATORY Monocyte Abs 0.9 0.3 - 0.9 [facility] x10(3)/[facility] LABORATORY Eosinophils % 4.0 % [facility]ORY Eosinophils Abs 0.4 0.0 - 0.4 [facility] x10(3)/[facility] LABORATORY Basophils % 0.5 % [facility]ORY Basophils Abs 0.0 0.0 - 0.1 [facility] x10(3)/[facility] LABORATORY Immature Gran % 0.30 % [facility]ATORY Comment: Immature granulocytes(IG's)percentage an d absolute count will include metamyelocytes, myelocytes, and promyelo cytes. Blood smears from CBCs yielding IG's will be scanned manually for concor dance. If this scan disagrees with the automated IG or if promyelocytes are not ed, a manual differential will be performed. Melisa Gran Abs 0.03 0.00 - 0.04 x10(3)/[facility] LABORATORY Specimen Anatomical Collection Method Collection Time Receive d Time (Source) Location / / Volume Laterality Blood specimen 08/14/2017 4:52 AM 018 5:08 (specimen) EST AM EST Resulting Agency Comment Spec In Lab Yonathan Smith MD HEMATOLOGY ORDERABLES Performing Organization Address City/State/ZIP Code Phon e Number [address] (ABNORMAL) Hemogram (08/14/2017 4:52 AM EST) Analysis Performed At Patho logist Time Signature WBC 9.8 (H) 4.0 - 9.5 [facility] x[facility](3[facility] LABORATORY RBC 3.32 (L) 4.58 - [facility] 5.54 [facility] x10(6)/[facility] LABORATORY Hemoglobin 9.5 (L) 13.7 - [facility] 16.5 gm/dL [facility] LABORATORY Hematocrit 30.3 (L) 40.5 - [facility] 48.5 % [facility] LABORATORY MCV 91.3 82.9 - [facility] 93.1 [facility] LABORATORY MCH 28.6 27.5 - [facility] 32.1 pg [facility] LABORATORY MCHC 31.4 (L) 32.0 - [facility] 35.7 gm/dL [facility] LABORATORY Platelets 263 145 - 357 [facility] x10(3)/[facility] LABORATORY RDWSD 54.8 (H) 36.0 - [facility] 45.0 [facility] LABORATORY RDWCV 16.5 (H) 11.4 - [facility] 13.8 % [facility] LABORATORY MPV 9.1 7.6 - 12.9 [facility] LABORATORY nRBC % Auto 0.0 % [facility] LABORATORY nRBC Abs Auto 0.000 0.000 - [facility] 0.000 [facility] x10(3)/[facility] LABORATORY Specimen Anatomical Collection Method Collection Time Receive d Time (Source) Location / / Volume Laterality Blood specimen 08/14/2017 4:52 AM 018 5:08 (specimen) EST AM EST Resulting Agency Comment Spec In Lab Yonathan Smith MD HEMATOLOGY ORDERABLES Performing Organization Address City/State/ZIP Code Phon e Number [address] (ABNORMAL) Prothrombin Time (08/14/2017 4:52 AM EST) athologist Signature PT 18.8 (H) 11.8 - 14.0 [facility] LABORATORY INR 1.6 (H) 0.9 - 1.1 [facility] LABORATORY Comment: An INR <2.0 indicates adequate [...] Organization Address City/State/[place] [address] (ABNORMAL) Basic Metabolic Panel (non-fasting) (08/14/2017 4:52 AM EST) athologist Signature Glucose Lvl 135 65 - 199 [facility] mg/dL [facility] LABORATORY Comment: Diabetes: >=200 mg/dL plus symp toms BUN 25 (H) 10 - 20 mg/dL [facility] LABORATORY Creatinine 1.36 0.80 - 1.50 mg/dL [facility] LABORATORY Sodium 141 135 - 145 mmol/L [facility] LABORATORY Potassium 4.8 3.5 - 5.0 mmol/L [facility] LABORATORY Comment: Please note: ??Patients with WBC >100,00 0 may have falsely elevated Potassium levels. ??For accurate Potassium quantif ication in these patients send serum separator tube (gold top) for subsequent determinations. ??Contact the Clinical Chemistry Laboratory if there are any qu estions. Chloride 100 98 - 107 mmol/L [facility] CO2 28 22 - 31 mmol/L [facility] Anion Gap 13 5 - 15 mmol/L [facility] Calcium 8.5 8.5 - 10.5 mg/dL [facility] Estimated GFR 52 (L) >=60 [facility] Comment: The reported eGFR should be multiplied b y 1.2 for patients. The MDRD is not an appropriate measure o f renal function for patients with body mass extremes or in patients with acute kidney failure. [email or web address] [email or web address] [email or web address] GupShup/DHMCnkf Specimen Anatomical Collection Method Collection Time Receive d Time (Source) Location / / Volume Laterality Blood specimen 08/14/2017 4:52 AM 018 5:08 (specimen) EST AM EST Resulting Agency Comment Spec In Lab Yonathan Smith MD CHEMISTRY ORDERABLES Performing Organization Address City/[facility]/ZIP Code Phon e Number [address] POCT Glucose (08/14/2017 3:56 AM EST) athologist Signature POC Glucose 135 65 - 199 [facility] mg/dL [facility] Comment: Supplemental ranges: <140 mg/dL before meals <180 mg/dL all other times of the day Specimen Anatomical Collection Method Collection Time Receive d Time (Source) Location / / Volume Laterality Blood specimen 08/14/2017 3:56 AM 018 3:56 (specimen) EST AM EST Yonathan Smith MD POINT OF CARE TEST ORDERABLE S Performing Organization Address City/State/ZIP Code Phon e Number [address] POCT Glucose (08/13/2017 11:13 PM EST) athologist Signature POC Glucose 118 65 - 199 [facility] mg/dL [facility] Comment: Supplemental ranges: <140 mg/dL before meals <180 mg/dL all other times of the day Specimen Anatomical Collection Method Collection Time Receive d Time (Source) Location / / Volume Laterality Blood specimen 08/13/2017 11:13 01/19/201 8 (specimen) PM EST 11:13 PM EST Yonathan Smith MD POINT OF CARE TEST ORDERABLE S Performing Organization Address City/State/ZIP Code Phon e Number [address] (ABNORMAL) POCT Glucose (08/13/2017 8:08 PM EST) athologist Signature POC Glucose 204 (H) 65 - 199 [place] mg/dL [facility] Comment: Supplemental ranges: <140 mg/dL before meals <180 mg/dL all other times of the day Specimen Anatomical Collection Method Collection Time Receive d Time (Source) Location / / Volume Laterality Blood specimen 08/13/2017 8:08 PM 018 8:08 (specimen) EST PM EST Yonathan Smith MD POINT OF CARE TEST ORDERABLE S Performing Organization Address City/[facility]/ZIP Code Phon e Number [address] POCT Glucose (08/13/2017 4:02 PM EST) athologist Signature POC Glucose 145 65 - 199 [place] mg/dL [facility] Comment: Supplemental ranges: <140 mg/dL before meals <180 mg/dL all other times of the day Specimen Anatomical Collection Method Collection Time Receive d Time (Source) Location / / Volume Laterality Blood specimen 08/13/2017 4:02 PM 018 4:02 (specimen) EST PM EST Yonathan Smith MD POINT OF CARE TEST ORDERABLE S Performing Organization Address City/[facility]/[place] [address] POCT Glucose (08/13/2017 11:31 AM EST) athologist Signature POC Glucose 179 65 - 199 [place] mg/dL [facility] Comment: Supplemental ranges: <140 mg/dL before meals <180 mg/dL all other times of the day Specimen Anatomical Collection Method Collection Time Receive d Time (Source) Location / / Volume Laterality Blood specimen 08/13/2017 11:31 8 (specimen) AM EST 11:31 AM EST Yonathan Smith MD POINT OF CARE TEST ORDERABLE S Performing Organization Address City/[facility]/ZIP Code Phon e Number [address] (ABNORMAL) POCT Glucose (08/13/2017 10:16 AM EST) P athologist Signature POC Glucose 211 (H) 65 - 199 [place] mg/dL [facility] Comment: Supplemental ranges: <140 mg/dL before meals <180 mg/dL all other times of the day Specimen Anatomical Collection Method Collection Time Receive d Time (Source) Location / / Volume Laterality Blood specimen 08/13/2017 10:16 8 (specimen) AM EST 10:16 AM EST Yonathan Smith MD POINT OF CARE TEST ORDERABLE S Performing Organization Address City/[facility]/[place] [address] JULIAN, legs, multiple levels (08/13/2017 7:42 AM EST) Component Value Ref Test Analysis Performed At Patholo gist Range Method Time Signature VB Text Department: Vascular Surgery Lab VASCUBASE Report Patient: [id number] (GREGORY HOANG) CPT: 85353 ICD10: I99.8 Referring Physician: YONATHAN SMITH ?? Indications: s/p R 1,2,3 toe amps with red left foot, need n ew baseline Diabetes mellitus: yes ICD10 Diagnosis Code: I99.8 Findings: Right ?Pressure (mm Hg) ?? JULIAN ??Waveform ?TBI ?? Brachial Artery ?138 ? Dorsalis Pedis (Ankle) Arter y ?132 ? 0.94 ??Story- Biphasic ? Posterior Tibial (Ankle) Art anila ??154 ? 1.10 ??Story-Biphasic ? Fourth Toe ? 67 ? 0.48 [...] Smith MD VASCULAR ORDERABLES Performing Organization Address City/[facility]/ZIP Code Phon e Number VASCUBASE POCT Glucose (08/13/2017 7:33 AM EST) P athologist Signature POC Glucose 156 65 - 199 [facility] mg/dL [facility] Comment: Supplemental ranges: <140 mg/dL before meals <180 mg/dL all other times of the day Specimen Anatomical Collection Method Collection Time Receive d Time (Source) Location / / Volume Laterality Blood specimen 08/13/2017 7:33 AM 018 7:33 (specimen) EST AM EST Yonathan Smith MD POINT OF CARE TEST ORDERABLE S Performing Organization Address City/State/[place]IP [place] [address] (ABNORMAL) Differential, Automated (08/13/2017 5:33 AM EST) Patholo gist Method Time Signature Neutrophils % 77.8 % [facility] Neutr Abs (ANC) 7.83 (H) 1.70 - [facility] 6.10 [facility] x10(3)/[facility] L LABORATORY Lymphocytes % 8.4 % [facility] Lymphocytes Abs 0.8 (L) 0.9 - 3.2 [facility] x10(3)/[facility] LABORATORY Monocytes % 8.3 % [facility] Monocyte Abs 0.8 0.3 - 0.9 [facility] x10(3)/[facility] LABORATORY Eosinophils % 4.6 % [facility] Eosinophils Abs 0.5 (H) 0.0 - 0.4 [facility] x10(3)/[facility] LABORATORY Basophils % 0.5 % [facility] Basophils Abs 0.0 0.0 - 0.1 [facility] x10(3)/[facility] LABORATORY Immature Gran % 0.40 % [facility] Comment: Immature granulocytes(IG's)percentage an d absolute count will include metamyelocytes, myelocytes, and promyelo cytes. Blood smears from CBCs yielding IG's will be scanned manually for concor dance. If this scan disagrees with the automated IG or if promyelocytes are not ed, a manual differential will be performed. Melisa Gran Abs 0.04 0.00 - 0.04 x10(3)/[facility] MAR Y [facility] LAB[facility]ATORY Specimen Anatomical Collection Method Collection Time Receive d Time (Source) Location / / Volume Laterality Blood specimen 08/13/2017 5:33 AM 018 6:04 (specimen) EST AM EST Resulting Agency Comment Spec In Lab Yonathan Smith MD HEMATOLOGY ORDERABLES Performing Organization Address City/State/[place] [address] (ABNORMAL) Hemogram (08/13/2017 5:33 AM EST) Analysis Performed At Patho logist Time Signature WBC 10.1 (H) 4.0 - 9.5 [facility] x10(3)/[facility] LABORATORY RBC 3.21 (L) 4.58 - [facility] 5.54 [facility] x10(6)/[facility] LABORATORY Hemoglobin 9.2 (L) 13.7 - [facility] 16.5 gm/dL [facility] Hematocrit 29.6 (L) 40.5 - [facility] 48.5 % [facility] MCV 92.2 82.9 - [facility] 93.1 [facility] LABORATORY MCH 28.7 27.5 - [facility] 32.1 pg [facility] MCHC 31.1 (L) 32.0 - [facility] 35.7 gm/dL [facility] Platelets 263 145 - 357 [place] x10(3)/[facility] LABORATORY RDWSD 54.8 (H) 36.0 - [facility] 45.0 [facility] LABORATORY RDWCV 16.4 (H) 11.4 - [facility] 13.8 % [facility] LABORATORY MPV 9.2 7.6 - 12.9 [facility] LABORATORY nRBC % Auto 0.0 % [facility] nRBC Abs Auto 0.000 0.000 - [place] 0.000 [facility] x10(3)/[facility] LABORATORY Specimen Anatomical Collection Method Collection Time Receive d Time (Source) Location / / Volume Laterality Blood specimen 08/13/2017 5:33 AM 018 6:04 (specimen) EST AM EST Resulting Agency Comment Spec In Lab Yonathan Smith MD HEMATOLOGY ORDERABLES Performing Organization Address City/State/[place] [address] (ABNORMAL) Prothrombin Time (08/13/2017 5:33 AM EST) P athologist Signature PT 17.3 (H) 11.8 - 14.0 [facility] LABORATORY INR 1.4 (H) 0.9 - 1.1 [facility] Comment: An INR <2.0 indicates adequate [...] Organization Address City/State/ZIP [place] [address] (ABNORMAL) Basic Metabolic Panel (non-fasting) (08/13/2017 5:33 AM EST) P athologist Signature Glucose Lvl 126 65 - 199 [facility] mg/dL [facility] Comment: Diabetes: >=200 mg/dL plus symp toms BUN 18 10 - 20 mg/dL [facility] Creatinine 1.16 0.80 - 1.50 mg/dL [facility] Sodium 141 135 - 145 mmol/L [facility] Potassium 4.6 3.5 - 5.0 mmol/L [facility] Comment: Please note: ??Patients with WBC >100,00 0 may have falsely elevated Potassium levels. ??For accurate Potassium quantif ication in these patients send serum separator tube (gold top) for subsequent determinations. ??Contact the Clinical Chemistry Laboratory if there are any qu estions. Chloride 100 98 - 107 mmol/L [facility] CO2 29 22 - 31 mmol/L [facility] Anion Gap 12 5 - 15 mmol/L [facility] Calcium 7.9 (L) 8.5 - 10.5 mg/dL [facility] Estimated GFR >60 >=60 [facility] Comment: The reported eGFR should be multiplied b y 1.2 for patients. The MDRD is not an appropriate measure o f renal function for patients with body mass extremes or in patients with acute kidney failure. [email or web address] [email or web address] Specimen Anatomical Collection Method Collection Time Receive d Time (Source) Location / / Volume Laterality Blood specimen 08/13/2017 5:33 AM 018 6:04 (specimen) EST AM EST Resulting Agency Comment Spec In Lab Yonathan Smith MD CHEMISTRY ORDERABLES Performing Organization Address City/State/[place] [address] POCT Glucose (08/13/2017 4:29 AM EST) athologist Signature POC Glucose 111 65 - 199 [place] mg/dL [facility] Comment: Supplemental ranges: <140 mg/dL before meals <180 mg/dL all other times of the day Specimen Anatomical Collection Method Collection Time Receive d Time (Source) Location / / Volume Laterality Blood specimen 08/13/2017 4:29 AM 018 4:29 (specimen) EST AM EST Yonathan Smith MD POINT OF CARE TEST ORDERABLE S Performing Organization Address City/[facility]/[place] [address] POCT Glucose (08/12/2017 11:28 PM EST) athologist Signature POC Glucose 164 65 - 199 [place] mg/dL [facility] Comment: Supplemental ranges: <140 mg/dL before meals <180 mg/dL all other times of the day Specimen Anatomical Collection Method Collection Time Receive d Time (Source) Location / / Volume Laterality Blood specimen 08/12/2017 11:28 8 (specimen) PM EST 11:28 PM EST Yonathan Smith MD POINT OF CARE TEST ORDERABLE S Performing Organization Address City/[facility]/[place] [address] (ABNORMAL) POCT Glucose (08/12/2017 7:40 PM EST) athologist Signature POC Glucose 209 (H) 65 - 199 [place] mg/dL [facility] Comment: Supplemental ranges: <140 mg/dL before meals <180 mg/dL all other times of the day Specimen Anatomical Collection Method Collection Time Receive d Time (Source) Location / / Volume Laterality Blood specimen 08/12/2017 7:40 PM 018 7:40 (specimen) EST PM EST Yonathan Smith MD POINT OF CARE TEST ORDERABLE S Performing Organization Address City/State/[place] [address] POCT Glucose (08/12/2017 4:24 PM EST) athologist Signature POC Glucose 161 65 - 199 [facility] mg/dL [facility] Comment: Supplemental ranges: <140 mg/dL before meals <180 mg/dL all other times of the day Specimen Anatomical Collection Method Collection Time Receive d Time (Source) Location / / Volume Laterality Blood specimen 08/12/2017 4:24 PM 018 4:24 (specimen) EST PM EST Yonathan Smith MD POINT OF CARE TEST ORDERABLE S Performing Organization Address City/State/ZIP Code Phon e Number [address] POCT Glucose (08/12/2017 12:00 PM EST) athologist Signature POC Glucose 167 65 - 199 [facility] mg/dL [facility] Comment: Supplemental ranges: <140 mg/dL before meals <180 mg/dL all other times of the day Specimen Anatomical Collection Method Collection Time Receive d Time (Source) Location / / Volume Laterality Blood specimen 08/12/2017 12:00 8 (specimen) PM EST 12:00 PM EST Yonathan Smith MD POINT OF CARE TEST ORDERABLE S Performing Organization Address City/State/[place] [address] POCT Glucose (08/12/2017 7:25 AM EST) athologist Signature POC Glucose 152 65 - 199 [place] mg/dL [facility] Comment: Supplemental ranges: <140 mg/dL before meals <180 mg/dL all other times of the day Specimen Anatomical Collection Method Collection Time Receive d Time (Source) Location / / Volume Laterality Blood specimen 08/12/2017 7:25 AM 018 7:25 (specimen) EST AM EST Yonathan Smith MD POINT OF CARE TEST ORDERABLE S Performing Organization Address City/State/[place] [address] (ABNORMAL) Differential, Automated (08/12/2017 6:29 AM EST) Patholo gist Method Time Signature Neutrophils % 78.7 % [facility] Neutr Abs (ANC) 7.94 (H) 1.70 - [facility] 6.10 [facility] x10(3)/[facility] LABORATORY Lymphocytes % 8.8 % [facility] Lymphocytes Abs 0.9 0.9 - 3.2 [facility] x10(3)/[facility] LABORATORY Monocytes % 7.8 % [facility] Monocyte Abs 0.8 0.3 - 0.9 [facility] x10(3)/[facility] LABORATORY Eosinophils % 3.9 % [facility] Eosinophils Abs 0.4 0.0 - 0.4 [facility] x10(3)/[facility] LABORATORY Basophils % 0.3 % [facility] Basophils Abs 0.0 0.0 - 0.1 [facility] x10(3)/[facility] LABORATORY Immature Gran % 0.50 % [facility] Comment: Immature granulocytes(IG's)percentage an d absolute count will include metamyelocytes, myelocytes, and promyelo cytes. Blood smears from CBCs yielding IG's will be scanned manually for concor dance. If this scan disagrees with the automated IG or if promyelocytes are not ed, a manual differential will be performed. Melisa Gran Abs 0.05 (H) 0.00 - 0.04 x10(3)/[facility] LABORATORY Specimen Anatomical Collection Method Collection Time Receive d Time (Source) Location / / Volume Laterality Blood specimen 08/12/2017 6:29 AM 018 6:38 (specimen) EST AM EST Resulting Agency Comment Spec In Lab Yonathan Smith MD HEMATOLOGY ORDERABLES Performing Organization Address City/State/ZIP Code Phon e Number [place] [phone] (ABNORMAL) Hemogram (08/12/2017 6:29 AM EST) Analysis Performed At Path logist Time Signature WBC 10.1 (H) 4.0 - 9.5 [facility] x10(3)/[facility] LABORATORY RBC 3.02 (L) 4.58 - [facility] 5.54 [facility] x10(6)/[facility] LABORATORY Hemoglobin 8.7 (L) 13.7 - [facility] 16.5 gm/dL [facility] Hematocrit 28.1 (L) 40.5 - [facility] 48.5 % [facility] MCV 93.0 82.9 - [facility] 93.1 [facility] LABORATORY MCH 28.8 27.5 - [facility] 32.1 pg [facility] MCHC 31.0 (L) 32.0 - [facility] 35.7 gm/dL [facility] Platelets 223 145 - 357 [facility] x10(3)/[facility] LABORATORY RDWSD 56.1 (H) 36.0 - [facility] RDWCV 16.4 (H) 11.4 - [facility] 13.8 % [facility] MPV 9.0 7.6 - 12.9 [facility] LABORATORY nRBC % Auto 0.0 % [facility] nRBC Abs Auto 0.000 0.000 - [facility] 0.000 [facility] x10(3)/[facility] LABORATORY Specimen Anatomical Collection Method Collection Time Receive d Time (Source) Location / / Volume Laterality Blood specimen 08/12/2017 6:29 AM 018 6:38 (specimen) EST AM EST Resulting Agency Comment Spec In Lab Yonathan Smith MD HEMATOLOGY ORDERABLES Performing Organization Address City/State/Z[place] [address] (ABNORMAL) Prothrombin Time (08/12/2017 6:29 AM EST) athologist Signature PT 16.1 (H) 11.8 - 14.0 [facility] LABORATORY INR 1.3 (H) 0.9 - 1.1 [facility] Comment: An INR <2.0 indicates adequate [...] Organization Address City/State/ZIP Code Phon e Number [place] [phone]OS[address] Drive (ABNORMAL) Basic Metabolic Panel (non-fasting) (08/12/2017 6:29 AM EST) P athologist Signature Glucose Lvl 151 65 - 199 [facility] mg/dL [facility] Comment: Diabetes: >=200 mg/dL plus symp toms BUN 18 10 - 20 mg/dL [facility] Creatinine 1.11 0.80 - 1.50 mg/dL [facility] Sodium 138 135 - 145 mmol/L [facility] Potassium 4.6 3.5 - 5.0 mmol/L [facility] Comment: Please note: ??Patients with WBC >100,00 0 may have falsely elevated Potassium levels. ??For accurate Potassium quantif ication in these patients send serum separator tube (gold top) for subsequent determinations. ??Contact the Clinical Chemistry Laboratory if there are any qu estions. Chloride 99 98 - 107 mmol/L [facility] CO2 28 22 - 31 mmol/L [facility] Anion Gap 11 5 - 15 mmol/L [facility] Calcium 7.9 (L) 8.5 - 10.5 mg/dL [facility] Estimated GFR >60 >=60 [facility] Comment: The reported eGFR should be multiplied b y 1.2 for patients. The MDRD is not an appropriate measure o f renal function for patients with body mass extremes or in patients with acute kidney failure. [email or web address] [email or web address]/DHMCnkf Specimen Anatomical Collection Method Collection Time Receive d Time (Source) Location / / Volume Laterality Blood specimen 08/12/2017 6:29 AM 018 6:38 (specimen) EST AM EST Resulting Agency Comment Spec In Lab Yonathan Smith MD CHEMISTRY ORDERABLES Performing Organization Address City/State/ZIP Code Phon e Number [address] POCT Glucose (08/12/2017 4:08 AM EST) athologist Signature POC Glucose 181 65 - 199 [place] [facility] mg/dL [facility] Comment: Supplemental ranges: <140 mg/dL before meals <180 mg/dL all other times of the day Specimen Anatomical Collection Method Collection Time Receive d Time (Source) Location / / Volume Laterality Blood specimen 08/12/2017 4:08 AM 018 4:08 (specimen) EST AM EST Yonathan Smith MD POINT OF CARE TEST ORDERABLE S Performing Organization Address City/[facility]/[place] [address] (ABNORMAL) POCT Glucose (08/12/2017 12:17 AM EST) athologist Signature POC Glucose 221 (H) 65 - 199 [place] mg/dL [facility] Comment: Supplemental ranges: <140 mg/dL before meals <180 mg/dL all other times of the day Specimen Anatomical Collection Method Collection Time Receive d Time (Source) Location / / Volume Laterality Blood specimen 08/12/2017 12:17 8 (specimen) AM EST 12:17 AM EST Yonathan Smith MD POINT OF CARE TEST ORDERABLE S Performing Organization Address City/[facility]/ZIP Code Phon e Number [address] (ABNORMAL) POCT Glucose (08/11/2017 8:52 PM EST) athologist Signature POC Glucose 221 (H) 65 - 199 [place] [place] mg/dL [facility] Comment: Supplemental ranges: <140 mg/dL before meals <180 mg/dL all other times of the day Specimen Anatomical Collection Method Collection Time Receive d Time (Source) Location / / Volume Laterality Blood specimen 08/11/2017 8:52 PM 018 8:52 (specimen) EST PM EST Yonathan Smith MD POINT OF CARE TEST ORDERABLE S Performing Organization Address City/State/[place] [address] POCT Glucose (08/11/2017 5:59 PM EST) athologist Signature POC Glucose 169 65 - 199 [place] [place]HAORY[place] mg/dL [facility] Comment: Supplemental ranges: <140 mg/dL before meals <180 mg/dL all other times of the day Specimen Anatomical Collection Method Collection Time Receive d Time (Source) Location / / Volume Laterality Blood specimen 08/11/2017 5:59 PM 018 5:59 (specimen) EST PM EST Yonathan Smith MD POINT OF CARE TEST ORDERABLE S Performing Organization Address City/State/[place] [address] (ABNORMAL) POCT Glucose (08/11/2017 4:08 PM EST) athologist Signature POC Glucose 240 (H) 65 - 199 [place] mg/dL [facility] Comment: Supplemental ranges: <140 mg/dL before meals <180 mg/dL all other times of the day Specimen Anatomical Collection Method Collection Time Receive d Time (Source) Location / / Volume Laterality Blood specimen 08/11/2017 4:08 PM 018 4:08 (specimen) EST PM EST Yonathan Smith MD POINT OF CARE TEST ORDERABLE S Performing Organization Address City/State/ZIP Code Phon e Number [address] POCT Glucose (08/11/2017 12:04 PM EST) athologist Signature POC Glucose 182 65 - 199 [place] mg/dL [facility] LABORATORY Comment: Supplemental ranges: <140 mg/dL before meals <180 mg/dL all other times of the day Specimen Anatomical Collection Method Collection Time Receive d Time (Source) Location / / Volume Laterality Blood specimen 08/11/2017 12:04 8 (specimen) PM EST 12:04 PM EST Yonathan Smith MD POINT OF CARE TEST ORDERABLE S Performing Organization Address City/State/[place] [address] POCT Glucose (08/11/2017 7:31 AM EST) P athologist Signature POC Glucose 156 65 - 199 [facility] mg/dL [facility] LABORATORY Comment: Supplemental ranges: <140 mg/dL before meals <180 mg/dL all other times of the day Specimen Anatomical Collection Method Collection Time Receive d Time (Source) Location / / Volume Laterality Blood specimen 08/11/2017 7:31 AM 018 7:31 (specimen) EST AM EST Yonathan Smith MD POINT OF CARE TEST ORDERABLE S Performing Organization Address City/State/[place] [address] (ABNORMAL) Differential, Automated (08/11/2017 6:16 AM EST) Patholo gist Method Time Signature Neutrophils % 83.7 % [facility] LABORATORY Neutr Abs (ANC) 10.76 (H) 1.70 - [facility] 6.10 [facility] x10(3)/[facility] L LABORATORY Lymphocytes % 6.0 % [facility] LABORATORY Lymphocytes Abs 0.8 (L) 0.9 - 3.2 [facility] x10(3)/[facility] LABORATORY Monocytes % 7.5 % [facility] LABORATORY Monocyte Abs 1.0 (H) 0.3 - 0.9 [facility] x10(3)/[facility] LABORATORY Eosinophils % 2.0 % [facility] LABORATORY Eosinophils Abs 0.3 0.0 - 0.4 [facility] x10(3)/[facility] LABORATORY Basophils % 0.3 % [facility] LABORATORY Basophils Abs 0.0 0.0 - 0.1 [facility] x10(3)/[facility] LABORATORY Immature Gran % 0.50 % [facility] LABORATORY Comment: Immature granulocytes(IG's)percentage an d absolute count will include metamyelocytes, myelocytes, and promyelo cytes. Blood smears from CBCs yielding IG's will be scanned manually for concor dance. If this scan disagrees with the automated IG or if promyelocytes are not ed, a manual differential will be performed. Melisa Gran Abs 0.06 (H) 0.00 - 0.04 x10(3)/[facility] LABORATORY Specimen Anatomical Collection Method Collection Time Receive d Time (Source) Location / / Volume Laterality Blood specimen 08/11/2017 6:16 AM 018 6:24 (specimen) EST AM EST Resulting Agency Comment Spec In Lab Yonathan Smith MD HEMATOLOGY ORDERABLES Performing Organization Address City/State/ZIP [place] [address] (ABNORMAL) Hemogram (08/11/2017 6:16 AM EST) Analysis Performed At Patho logist Time Signature WBC 12.9 (H) 4.0 - 9.5 [facility] x10(3)/[facility] LABORATORY RBC 3.28 (L) 4.58 - [facility] 5.54 [facility] x10(6)/[facility] LABORATORY Hemoglobin 9.5 (L) 13.7 - [facility] 16.5 gm/dL [facility] LABORATORY Hematocrit 29.8 (L) 40.5 - [facility] 48.5 % [facility] LABORATORY MCV 90.9 82.9 - [facility] 93.1 [facility] LABORATORY MCH 29.0 27.5 - [facility] 32.1 pg [facility] LABORATORY MCHC 31.9 (L) 32.0 - [facility] LABORATORY Platelets 236 145 - 357 [facility] x10(3)/[facility] LABORATORY RDWSD 53.5 (H) 36.0 - [facility] 45.0 [facility] LABORATORY RDWCV 16.3 (H) 11.4 - [facility] 13.8 % [facility] LABORATORY MPV 8.8 7.6 - 12.9 [facility] LABORATORY nRBC % Auto 0.0 % [facility] LABORATORY nRBC Abs Auto 0.000 0.000 - [facility] 0.000 [facility] x10(3)/[facility] LABORATORY Specimen Anatomical Collection Method Collection Time Receive d Time (Source) Location / / Volume Laterality Blood specimen 08/11/2017 6:16 AM 018 6:24 (specimen) EST AM EST Resulting Agency Comment Spec In Lab Yonathan Smith MD HEMATOLOGY ORDERABLES Performing Organization Address City/State/[place] [address] (ABNORMAL) Prothrombin Time (08/11/2017 6:16 AM EST) P athologist Signature PT 15.5 (H) 11.8 - 14.0 [facility] LABORATORY INR 1.3 (H) 0.9 - 1.1 [facility] LABORATORY Comment: An INR <2.0 indicates adequate [...] Organization Address City/State/[place] [address] Basic Metabolic Panel (non-fasting) (08/11/2017 6:16 AM EST) P athologist Signature Glucose Lvl 139 65 - 199 [facility] mg/dL [facility] LABORATORY Comment: Diabetes: >=200 mg/dL plus symp toms BUN 12 10 - 20 mg/dL [facility] LABORATORY Creatinine 0.91 0.80 - 1.50 mg/dL [facility] LABORATORY Sodium 138 135 - 145 mmol/L [facility] LABORATORY Potassium 4.6 3.5 - 5.0 mmol/L [facility] LABORATORY Comment: Please note: ??Patients with WBC >100,00 0 may have falsely elevated Potassium levels. ??For accurate Potassium quantif ication in these patients send serum separator tube (gold top) for subsequent determinations. ??Contact the Clinical Chemistry Laboratory if there are any qu estions. Chloride 98 98 - 107 mmol/L [facility] LABORATORY CO2 27 22 - 31 mmol/L [facility] LABORATORY Anion Gap 13 5 - 15 mmol/L [facility] LABORATORY Calcium 8.5 8.5 - 10.5 mg/dL [facility] LABORATORY Estimated GFR >60 >=60 [facility] LABORATORY Comment: The reported eGFR should be multiplied b y 1.2 for patients. The MDRD is not an appropriate measure o f renal function for patients with body mass extremes or in patients with acute kidney failure. [email or web address] [email or web address] Specimen Anatomical Collection Method Collection Time Receive d Time (Source) Location / / Volume Laterality Blood specimen 08/11/2017 6:16 AM 018 6:24 (specimen) EST AM EST Resulting Agency Comment Spec In Lab Yonathan Smith MD CHEMISTRY ORDERABLES Performing Organization Address City/State/ZIP [place] [address] POCT Glucose (08/11/2017 4:07 AM EST) athologist Signature POC Glucose 162 65 - 199 [facility] mg/dL [facility] LABORATORY Comment: Supplemental ranges: <140 mg/dL before meals <180 mg/dL all other times of the day Specimen Anatomical Collection Method Collection Time Receive d Time (Source) Location / / Volume Laterality Blood specimen 08/11/2017 4:07 AM 018 4:07 (specimen) EST AM EST Yonathan Smith MD POINT OF CARE TEST ORDERABLE S Performing Organization Address City/[facility]/ZIP Code Phon e Number [address] POCT Glucose (08/10/2017 11:59 PM EST) athologist Signature POC Glucose 166 65 - 199 [facility] mg/dL [facility] LABORATORY Comment: Supplemental ranges: <140 mg/dL before meals <180 mg/dL all other times of the day Specimen Anatomical Collection Method Collection Time Receive d Time (Source) Location / / Volume Laterality Blood specimen 08/10/2017 11:59 8 (specimen) PM EST 11:59 PM EST Yonathan Smith MD POINT OF CARE TEST ORDERABLE S Performing Organization Address City/[facility]/ZIP Code Phon e Number [address] POCT Glucose (08/10/2017 8:12 PM EST) athologist Signature POC Glucose 156 65 - 199 [facility] mg/dL [facility] LABORATORY Comment: Supplemental ranges: <140 mg/dL before meals <180 mg/dL all other times of the day Specimen Anatomical Collection Method Collection Time Receive d Time (Source) Location / / Volume Laterality Blood specimen 08/10/2017 8:12 PM 018 8:12 (specimen) EST PM EST Yonathan Smith MD POINT OF CARE TEST ORDERABLE S Performing Organization Address City/[facility]/[place] [address] (ABNORMAL) POCT Glucose (08/10/2017 4:42 PM EST) athologist Signature POC Glucose 211 (H) 65 - 199 [facility] mg/dL [facility] LABORATORY Comment: Supplemental ranges: <140 mg/dL before meals <180 mg/dL all other times of the day Specimen Anatomical Collection Method Collection Time Receive d Time (Source) Location / / Volume Laterality Blood specimen 08/10/2017 4:42 PM 018 4:42 (specimen) EST PM EST Yonathan Smith MD POINT OF CARE TEST ORDERABLE S Performing Organization Address City/State/ZIP Code Phon e Number [place] [id number]OS[address] (ABNORMAL) Differential, Automated (08/10/2017 2:30 PM EST) [facility] Method Time Signature Neutrophils % 87.6 % [facility] LABORATORY Neutr Abs (ANC) 9.90 (H) 1.70 - [facility] 6.10 [facility] x10(3)/[facility] L LABORATORY Lymphocytes % 4.3 % [facility] LABORATORY Lymphocytes Abs 0.5 (L) 0.9 - 3.2 [facility] x10(3)/[facility] LABORATORY Monocytes % 6.0 % [facility] LABORATORY Monocyte Abs 0.7 0.3 - 0.9 [facility] x10(3)/[facility] LABORATORY Eosinophils % 1.1 % [facility] LABORATORY Eosinophils Abs 0.1 0.0 - 0.4 [facility] x10(3)/[facility] LABORATORY Basophils % 0.4 % [facility] LABORATORY Basophils Abs 0.0 0.0 - 0.1 [facility] x10(3)/[facility] LABORATORY Immature Gran % 0.60 % [facility] LABORATORY Comment: Immature granulocytes(IG's)percentage an d absolute count will include metamyelocytes, myelocytes, and promyelo cytes. Blood smears from CBCs yielding IG's will be scanned manually for concor dance. If this scan disagrees with the automated IG or if promyelocytes are not ed, a manual differential will be performed. Melisa Gran Abs 0.07 (H) 0.00 - 0.04 x10(3)/[facility] LABORATORY Specimen Anatomical Collection Method Collection Time Receive d Time (Source) Location / / Volume Laterality Blood specimen 08/10/2017 2:30 PM 018 2:48 (specimen) EST PM EST Resulting Agency Comment Spec In Lab Yonathan Smith MD HEMATOLOGY ORDERABLES Performing Organization Address City/State/Z[place] [address] (ABNORMAL) Hemogram (08/10/2017 2:30 PM EST) Analysis Performed At Patho logist Time Signature WBC 11.3 (H) 4.0 - 9.5 [facility] x10(3)/[facility] LABORATORY RBC 3.13 (L) 4.58 - [place] 5.54 [facility] x10(6)/[facility] LABORATORY Hemoglobin 8.9 (L) 13.7 - [facility] 16.5 gm/dL [facility] LABORATORY Hematocrit 28.4 (L) 40.5 - [facility] 48.5 % [facility] LABORATORY MCV 90.7 82.9 - [facility] 93.1 [facility] LABORATORY MCH 28.4 27.5 - [facility] 32.1 pg [facility] LABORATORY MCHC 31.3 (L) 32.0 - [facility] 35.7 gm/dL [facility] LABORATORY Platelets 213 145 - 357 [facility] x10(3)/[facility] LABORATORY RDWSD 53.7 (H) 36.0 - [facility] 45.0 [facility] LABORATORY RDWCV 16.4 (H) 11.4 - [facility] 13.8 % [facility] LABORATORY MPV 8.9 7.6 - 12.9 [facility] LABORATORY nRBC % Auto 0.0 % [facility] LABORATORY nRBC Abs Auto 0.000 0.000 - [place] 0.000 [facility] x10(3)/[facility] LABORATORY Specimen Anatomical Collection Method Collection Time Receive d Time (Source) Location / / Volume Laterality Blood specimen 08/10/2017 2:30 PM 018 2:48 (specimen) EST PM EST Resulting Agency Comment Spec In Lab Yonathan Smith MD HEMATOLOGY ORDERABLES Performing Organization Address City/State/Z[place] [address] (ABNORMAL) POCT Glucose (08/10/2017 1:50 PM EST) P athologist Signature POC Glucose 243 (H) 65 - 199 [facility] mg/dL [facility] LABORATORY Comment: Supplemental ranges: <140 mg/dL before meals <180 mg/dL all other times of the day Specimen Anatomical Collection Method Collection Time Receive d Time (Source) Location / / Volume Laterality Blood specimen 08/10/2017 1:50 PM 018 1:50 (specimen) EST PM EST Yonathan Smith MD POINT OF CARE TEST ORDERABLE S Performing Organization Address City/State/ZIP Code Phon e Number [address] POCT Glucose (08/10/2017 11:21 AM EST) P athologist Signature POC Glucose 156 65 - 199 [facility] mg/dL [facility] LABORATORY Comment: Supplemental ranges: <140 mg/dL before meals <180 mg/dL all other times of the day Specimen Anatomical Collection Method Collection Time Receive d Time (Source) Location / / Volume Laterality Blood specimen 08/10/2017 11:21 8 (specimen) AM EST 11:21 AM EST Yonathan Smith MD POINT OF CARE TEST ORDERABLE S Performing Organization Address City/State/ZIP Code Phon e Number [address] (ABNORMAL) Differential, Automated (08/10/2017 10:28 AM EST) Patholo gist Method Time Signature Neutrophils % 85.3 % [facility] LABORATORY Neutr Abs (ANC) 9.43 (H) 1.70 - [facility] 6.10 [facility] x10(3)/[facility] L LABORATORY Lymphocytes % 5.5 % [facility] LABORATORY Lymphocytes Abs 0.6 (L) 0.9 - 3.2 [facility] x10(3)/[facility] LABORATORY Monocytes % 5.9 % [facility] LABORATORY Monocyte Abs 0.6 0.3 - 0.9 [facility] x10(3)/[facility] LABORATORY Eosinophils % 2.1 % [facility] LABORATORY Eosinophils Abs 0.2 0.0 - 0.4 [facility] x10(3)/[facility] LABORATORY Basophils % 0.4 % [facility] LABORATORY Basophils Abs 0.0 0.0 - 0.1 [facility] x10(3)/[facility] LABORATORY Immature Gran % 0.80 % [facility] LABORATORY Comment: Immature granulocytes(IG's)percentage an d absolute count will include metamyelocytes, myelocytes, and promyelo cytes. Blood smears from CBCs yielding IG's will be scanned manually for concor dance. If this scan disagrees with the automated IG or if promyelocytes are not ed, a manual differential will be performed. Melisa Gran Abs 0.09 (H) 0.00 - 0.04 x10(3)/[facility] LABORATORY Specimen Anatomical Collection Method Collection Time Receive d Time (Source) Location / / Volume Laterality Blood specimen 08/10/2017 10:28 8 (specimen) AM EST 10:35 AM EST Resulting Agency Comment Spec In Lab Yonathan Smith MD HEMATOLOGY ORDERABLES Performing Organization Address City/State/Z[place] [address] (ABNORMAL) Hemogram (08/10/2017 10:28 AM EST) Analysis Performed At Patho logist Time Signature WBC 11.0 (H) 4.0 - 9.5 [facility] x10(3)/[facility] LABORATORY RBC 3.02 (L) 4.58 - [facility] 5.54 [facility] x10(6)/[facility] LABORATORY Hemoglobin 8.8 (L) 13.7 - [facility] 16.5 gm/dL [facility] LABORATORY Hematocrit 28.1 (L) 40.5 - [facility] 48.5 % [facility] LABORATORY MCV 93.0 82.9 - [facility] 93.1 [facility] LABORATORY MCH 29.1 27.5 - [facility] 32.1 pg [facility] LABORATORY MCHC 31.3 (L) 32.0 - [facility] 35.[facility] gm/dL [facility] LABORATORY Platelets 207 145 - 357 [facility] x10(3)/[facility] LABORATORY RDWSD 55.3 (H) 36.0 - [facility] 45.0 [facility] LABORATORY RDWCV 16.4 (H) 11.4 - [facility] 13.8 % [facility] LABORATORY MPV 9.0 7.6 - 12.9 [facility] LABORATORY nRBC % Auto 0.0 % [facility] LABORATORY nRBC Abs Auto 0.000 0.000 - [facility] 0.000 [facility] x10(3)/[facility] LABORATORY Specimen Anatomical Collection Method Collection Time Receive d Time (Source) Location / / Volume Laterality Blood specimen 08/10/2017 10:28 8 (specimen) AM EST 10:35 AM EST Resulting Agency Comment Spec In Lab Yonathan Smith MD HEMATOLOGY ORDERABLES Performing Organization Address City/State/ZIP Code Phon e Number [place] [phone] HOSPITAL LAB[address]ORY Drive VS Angiogram/intervention (vascular) (08/10/2017 [...] 2.5x80 5. Completion RLE angiogram 6. L ASSOCIATE VETERINARIAN angiogram 7. 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 - L ASSOCIATE VETERINARIAN angriogram demonstrated: High fe moral bifurcation over the proximal half of the femoral head. L ASSOCIATE VETERINARIAN access in the distal L ASSOCIATE VETERINARIAN. - Closure device: Mynx Technical Procedure: ?The [...] for a 45cm 5F Destination. V18 and [place] a nd QuickCross catheters were used to [...] bifurcation. Access appeared in the distal R ASSOCIATE VETERINARIAN. Closure and sheath removal was performed with [...] 2.5x80 5. Completion RLE angiogram 6. L ASSOCIATE VETERINARIAN angiogram 7. 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 - L ASSOCIATE VETERINARIAN angriogram demonstrated: High fe moral bifurcation over the proximal half of the femoral head. L ASSOCIATE VETERINARIAN access in the distal L ASSOCIATE VETERINARIAN. - Closure device: Mynx Technical Procedure: The [...] for a 45cm 5F Destination. V18 and [place] a nd QuickCross catheters were used to [...] bifurcation. Access appeared in the distal R ASSOCIATE VETERINARIAN. Closure and sheath removal was performed with [...] (ABNORMAL) Differential, Automated (08/10/2017 5:50 AM EST) [facility] Method Time Signature Neutrophils % 80.1 % [facility] LABORATORY Neutr Abs (ANC) 9.01 (H) 1.70 - [facility] 6.10 [facility] x10(3)/[facility] LABORATORY Lymphocytes % 8.8 % [facility] LABORATORY Lymphocytes Abs 1.0 0.9 - 3.2 [facility] x10(3)/[facility] LABORATORY Monocytes % 8.3 % [facility] LABORATORY Monocyte Abs 0.9 0.3 - 0.9 [facility] x10(3)/[facility] LABORATORY Eosinophils % 2.0 % [facility] LABORATORY Eosinophils Abs 0.2 0.0 - 0.4 [facility] x10(3)/[facility] LABORATORY Basophils % 0.4 % [facility] LABORATORY Basophils Abs 0.0 0.0 - 0.1 [facility] x10(3)/[facility] LABORATORY Immature Gran % 0.40 % [facility] LABORATORY Comment: Immature granulocytes(IG's)percentage an d absolute count will include metamyelocytes, myelocytes, and promyelo cytes. Blood smears from CBCs yielding IG's will be scanned manually for concor dance. If this scan disagrees with the automated IG or if promyelocytes are not ed, a manual differential will be performed. Melisa Gran Abs 0.05 (H) 0.00 - 0.04 x10(3)/[facility] LABORATORY Specimen Anatomical Collection Method Collection Time Receive d Time (Source) Location / / Volume Laterality Blood specimen 08/10/2017 5:50 AM 018 5:59 (specimen) EST AM EST Resulting Agency Comment Spec In Lab Yonathan Smith MD HEMATOLOGY ORDERABLES Performing Organization Address City/State/Z[place] [address] (ABNORMAL) Hemogram (08/10/2017 5:50 AM EST) Analysis Performed At Patho logist Time Signature WBC 11.3 (H) 4.0 - 9.5 [facility] x10(3)/[facility] LABORATORY RBC 3.15 (L) 4.58 - [facility] 5.54 [facility] x10(6)/[facility] LABORATORY Hemoglobin 8.9 (L) 13.7 - [facility] 16.5 gm/dL [facility] LABORATORY Hematocrit 29.0 (L) 40.5 - [facility] 48.5 % [facility] LABORATORY MCV 92.1 82.9 - [facility] 93.1 [facility] LABORATORY MCH 28.3 27.5 - [facility] 32.1 pg [facility] LABORATORY MCHC 30.7 (L) 32.0 - [facility] 35.7 gm/dL [facility] LABORATORY Platelets 231 145 - 357 [facility] x10(3)/[facility] LABORATORY RDWSD 53.9 (H) 36.0 - [facility] 45.0 [facility] LABORATORY RDWCV 16.2 (H) 11.4 - [facility] 13.8 % [facility] LABORATORY MPV 8.7 7.6 - 12.9 [facility] LABORATORY nRBC % Auto 0.0 % [facility] LABORATORY nRBC Abs Auto 0.000 0.000 - [facility] 0.000 [facility] x10(3)/[facility] LABORATORY Specimen Anatomical Collection Method Collection Time Receive d Time (Source) Location / / Volume Laterality Blood specimen 08/10/2017 5:50 AM 018 5:59 (specimen) EST AM EST Resulting Agency Comment Spec In Lab Yonathan Smith MD HEMATOLOGY ORDERABLES Performing Organization Address City/State/[place] [address] (ABNORMAL) Basic Metabolic Panel (non-fasting) (08/10/2017 5:50 AM EST) P athologist Signature Glucose Lvl 135 65 - 199 [facility] mg/dL [facility] LABORATORY Comment: Diabetes: >=200 mg/dL plus symp toms BUN 17 10 - 20 mg/dL [facility] LABORATORY Creatinine 1.05 0.80 - 1.50 mg/dL [facility] LABORATORY Sodium 144 135 - 145 mmol/L [facility] Potassium 4.6 3.5 - 5.0 mmol/L [facility] Comment: Please note: ??Patients with WBC >100,00 0 may have falsely elevated Potassium levels. ??For accurate Potassium quantif ication in these patients send serum separator tube (gold top) for subsequent determinations. ??Contact the Clinical Chemistry Laboratory if there are any qu estions. Chloride 104 98 - 107 mmol/L [facility] CO2 27 22 - 31 mmol/L [facility] Anion Gap 13 5 - 15 mmol/L [facility] Calcium 8.1 (L) 8.5 - 10.5 mg/dL [facility] Estimated GFR >60 >=60 [facility] Comment: The reported eGFR should be multiplied b y 1.2 for patients. The MDRD is not an appropriate measure o f renal function for patients with body mass extremes or in patients with acute kidney failure. [email or web address]/DHnkdep [email or web address]/DHMCnkf Specimen Anatomical Collection Method Collection Time Receive d Time (Source) Location / / Volume Laterality Blood specimen 08/10/2017 5:50 AM 018 5:59 (specimen) EST AM EST Resulting Agency Comment Spec In Lab Yonathan Smith MD CHEMISTRY ORDERABLES Performing Organization Address City/State/ZIP Code Phon e Number [address] (ABNORMAL) Prothrombin Time (08/10/2017 5:50 AM EST) athologist Signature PT 16.8 (H) 11.8 - 14.0 [facility] LABORATORY INR 1.4 (H) 0.9 - 1.1 [facility] Comment: An INR <2.0 indicates adequate [...] Smith MD HEMATOLOGY ORDERABLES Performing Organization Address City/[facility]/[place] [address] (ABNORMAL) POCT Glucose (08/10/2017 4:01 AM EST) athologist Signature POC Glucose 206 (H) 65 - 199 [facility] mg/dL [facility] Comment: Supplemental ranges: <140 mg/dL before meals <180 mg/dL all other times of the day Specimen Anatomical Collection Method Collection Time Receive d Time (Source) Location / / Volume Laterality Blood specimen 08/10/2017 4:01 AM 018 4:01 (specimen) EST AM EST Yonathan Smith MD POINT OF CARE TEST ORDERABLE S Performing Organization Address City/State/ZIP Code Phon e Number [address] POCT Glucose (08/10/2017 2:01 AM EST) athologist Signature POC Glucose 188 65 - 199 [facility] mg/dL [facility] Comment: Supplemental ranges: <140 mg/dL before meals <180 mg/dL all other times of the day Specimen Anatomical Collection Method Collection Time Receive d Time (Source) Location / / Volume Laterality Blood specimen 08/10/2017 2:01 AM 018 2:01 (specimen) EST AM EST Yonathan Smith MD POINT OF CARE TEST ORDERABLE S Performing Organization Address City/[facility]/[place] [address] (ABNORMAL) POCT Glucose (08/09/2017 11:42 PM EST) athologist Signature POC Glucose 283 (H) 65 - 199 [facility] mg/dL [facility] Comment: Supplemental ranges: <140 mg/dL before meals <180 mg/dL all other times of the day Specimen Anatomical Collection Method Collection Time Receive d Time (Source) Location / / Volume Laterality Blood specimen 08/09/2017 11:42 8 (specimen) PM EST 11:42 PM EST Yonathan Smith MD POINT OF CARE TEST ORDERABLE S Performing Organization Address City/[facility]/[place] [address] POCT Glucose (08/09/2017 8:55 PM EST) athologist Signature POC Glucose 182 65 - 199 [facility] mg/dL [facility] Comment: Supplemental ranges: <140 mg/dL before meals <180 mg/dL all other times of the day Specimen Anatomical Collection Method Collection Time Receive d Time (Source) Location / / Volume Laterality Blood specimen 08/09/2017 8:55 PM 018 8:55 (specimen) EST PM EST Yonathan Smith MD POINT OF CARE TEST ORDERABLE S Performing Organization Address City/[facility]/[place] [address] (ABNORMAL) APTT (08/09/2017 6:42 PM EST) athologist Signature PTT 90 (H) 25 - 35 sec [facility] Comment: The recommended therapeutic range for fu ll dose, unfractionated heparin at [facility] is 80 ? 114 seconds. The use [...] Smith MD HEMATOLOGY ORDERABLES Performing Organization Address City/[facility]/ZIP Code Phon e Number [address] POCT Glucose (08/09/2017 4:41 PM EST) athologist Signature POC Glucose 195 65 - 199 [facility] mg/dL [facility] Comment: Supplemental ranges: <140 mg/dL before meals <180 mg/dL all other times of the day Specimen Anatomical Collection Method Collection Time Receive d Time (Source) Location / / Volume Laterality Blood specimen 08/09/2017 4:41 PM 018 4:41 (specimen) EST PM EST Yonathan Smith MD POINT OF CARE TEST ORDERABLE S Performing Organization Address City/[facility]/ZIP Code Phon e Number [address] POCT Glucose (08/09/2017 12:29 PM EST) athologist Signature POC Glucose 140 65 - 199 [facility] mg/dL [facility] Comment: Supplemental ranges: <140 mg/dL before meals <180 mg/dL all other times of the day Specimen Anatomical Collection Method Collection Time Receive d Time (Source) Location / / Volume Laterality Blood specimen 08/09/2017 12:29 8 (specimen) PM EST 12:29 PM EST Yonathan Smith MD POINT OF CARE TEST ORDERABLE S Performing Organization Address City/State/ZIP Code Phon e Number [address] POCT Glucose (08/09/2017 9:59 AM EST) athologist Signature POC Glucose 135 65 - 199 [facility] mg/dL [facility] Comment: Supplemental ranges: <140 mg/dL before meals <180 mg/dL all other times of the day Specimen Anatomical Collection Method Collection Time Receive d Time (Source) Location / / Volume Laterality Blood specimen 08/09/2017 9:59 AM 018 9:59 (specimen) EST AM EST Yonathan Smith MD POINT OF CARE TEST ORDERABLE S Performing Organization Address [facility]/[place] [address] Specimen to Pathology (08/09/2017 8:41 AM EST) Specimen Anatomical Collection Method Collection Time Receive d Time (Source) Location / / Volume Laterality AP Specimen 08/09/2017 8:41 AM 8 8:41 EST AM EST Narrative [facility] - 08/09/2017 8:41 AM EST Specimen requisition ordered. ??Separate Pathology report to follow Yonathan Smith MD PATHOLOGY/CYTOLOGY ORDERABLE S Performing Organization Address City/[facility]/[place] [address] Surgical Pathology Report (08/09/2017 8:40 AM EST) Component Value Ref Test Analysis Performed At [facility] Range Method Time Signature Surgical [id number] ? Location: [facility]; [facility]; A [facility] Report The signing pathologist has (i) examined the relevant preparation(s) for the [facility] specimen(s) and (ii) rendered or confirmed the diagnosis(es) . HOSPITAL LABORATORY . 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 ?Viable proximal resection margins. Electronically signed by: ??Henrique Saravia MD Verified: ??08/13/2017 ?Pathologist Performed at: ??-[facility] Dept. of Pathology, [place], [place] CLINICAL INFORMATION Specimen Submitted: A - [...] Organization Address City/State/[place] [address] Anaerobic Culture (08/09/2017 8:30 AM EST) [facility] gist Method Time Signature Anaerobic No anaerobic [facility] Culture organisms [facility] LABORATORY Specimen Anatomical Collection Method Collection [...] Organization Address City/State/[place] [address] (ABNORMAL) Abscess/Wound Aspirate Culture (08/09/2017 8:30 AM EST) Patholo gist Method Time Signature Abscess/Wound Moderate mixed [place] Aspirate bacterial [place] Culture morphotypes [facility] normal LABORATORY cutaneous leroy (A) Gram Stain Rare White Blood Cells [place] Few Gram Positive Cocci in pairs [place] (A) [facility] Organism Gram Positive [place] Cocci in pairs [place] (A) [facility] Specimen Anatomical Collection Method Collection Time Receive d Time (Source) Location / / Volume Laterality Specimen from STRUCTURE OF RIGHT 08/09/2017 8:30 AM 9:10 abscess FOOT / Unknown EST AM EST (specimen) Comment: SWAB RIGHT GREAT TOE ABSCESS FO R AEROBIC AND ANAEROBIC CULTURES. Resulting Agency Comment Spec In Lab Yonathan Smith MD MICROBIOLOGY - GENERAL ORDER [place] Performing Organization Address [facility]/ZIP [facility] Phon e Number [address] POCT Glucose (08/09/2017 4:28 AM EST) P athologist Signature POC Glucose 128 65 - 199 [facility] mg/dL [facility] Comment: Supplemental ranges: <140 mg/dL before meals <180 mg/dL all other times of the day Specimen Anatomical Collection Method Collection Time Receive d Time (Source) Location / / Volume Laterality Blood specimen 08/09/2017 4:28 AM 018 4:28 (specimen) EST AM EST Yonathan Smith MD POINT OF CARE TEST ORDERABLE S Performing Organization Address City/[facility]/ZIP Code Phon e Number [address] ABORH Recheck Status (08/09/2017 1:10 AM EST) [facility] gist Method Time Signature ABORH Type Completed [facility] LABORATORY Specimen Anatomical Collection Method Collection Time Receive d Time (Source) Location / / Volume Laterality Blood specimen 08/09/2017 1:10 AM 018 1:35 (specimen) EST AM EST Resulting Agency Comment Spec In Lab Yonathan Smith MD BLOOD BANK ORDERABLES Performing Organization Address City/[facility]/[place] [address] Antibody screen (08/09/2017 1:10 AM EST) Patholo gist Method Time Signature Ab Screen Negative [facility] LABORATORY Expires at 08/12/2017 BAR[place]A DAVIS [id number] on: [facility] Specimen Anatomical Collection Method Collection Time Receive d Time (Source) Location / / Volume Laterality Blood specimen 08/09/2017 1:10 AM 018 1:35 (specimen) EST AM EST Resulting Agency Comment Spec In Lab Yonathan Smith MD BLOOD BANK ORDERABLES Performing Organization Address City/[facility]/ZIP Code Phon e Number [address] ABO/Rh Typing (08/09/2017 1:10 AM EST) P athologist Signature ABORh Type O Pos [facility] Specimen Anatomical Collection Method Collection Time Receive d Time (Source) Location / / Volume Laterality Blood specimen 08/09/2017 1:10 AM 018 1:35 (specimen) EST AM EST Resulting Agency Comment Spec In Lab Yonathan Smith MD BLOOD BANK ORDERABLES Performing Organization Address City/[facility]/[place] [address] (ABNORMAL) APTT (08/09/2017 1:10 AM EST) P athologist Signature PTT 86 (H) 25 - 35 sec [facility] Comment: The recommended therapeutic range for fu ll dose, unfractionated heparin at [facility] is 80 ? 114 seconds. The use [...] Organization Address City/State/[place] [address] [facility] LABORATORY Drive (ABNORMAL) Differential, Automated (08/09/2017 1:10 AM EST) [facility] Method Time Signature Neutrophils % 76.2 % [facility] Neutr Abs (ANC) 8.59 (H) 1.70 - [facility] 6.10 [facility] x10(3)/[facility] LABORATORY Lymphocytes % 11.0 % [facility] Lymphocytes Abs 1.2 0.9 - 3.2 [facility] x10(3)/[facility] LABORATORY Monocytes % 8.4 % [facility] Monocyte Abs 1.0 (H) 0.3 - 0.9 [facility] x10(3)/[facility] LABORATORY Eosinophils % 3.5 % [facility] Eosinophils Abs 0.4 0.0 - 0.4 [facility] x10(3)/[facility] LABORATORY Basophils % 0.5 % [facility] Basophils Abs 0.1 0.0 - 0.1 [facility] x10(3)/[facility] LABORATORY Immature Gran % 0.40 % [facility] Comment: Immature granulocytes(IG's)percentage an d absolute count will include metamyelocytes, myelocytes, and promyelo cytes. Blood smears from CBCs yielding IG's will be scanned manually for concor dance. If this scan disagrees with the automated IG or if promyelocytes are not ed, a manual differential will be performed. Melisa Gran Abs 0.05 (H) 0.00 - 0.04 x10(3)/[facility] LABORATORY Specimen Anatomical Collection Method Collection Time Receive d Time (Source) Location / / Volume Laterality Blood specimen 08/09/2017 1:10 AM 018 1:19 (specimen) EST AM EST Resulting Agency Comment Spec In Lab Yonathan Smith MD HEMATOLOGY ORDERABLES Performing Organization Address City/State/[place] [address] (ABNORMAL) Hemogram (08/09/2017 1:10 AM EST) Analysis Performed At Patho logist Time Signature WBC 11.3 (H) 4.0 - 9.5 [facility] x10(3)/[facility] LABORATORY RBC 3.47 (L) 4.58 - [facility] ZHAORYAN 5.54 [facility] x10(6)/[facility] LABORATORY Hemoglobin 10.0 (L) 13.7 - [facility] 16.5 gm/dL [facility] Hematocrit 31.9 (L) 40.5 - [facility] 48.5 % [facility] MCV 91.9 82.9 - [facility] 93.1 [facility] LABORATORY MCH 28.8 27.5 - [facility] 32.1 pg [facility] MCHC 31.3 (L) 32.0 - [facility] 35.7 gm/dL [facility] Platelets 234 145 - 357 [facility] x10(3)/[facility] LABORATORY RDWSD 54.0 (H) 36.0 - [facility] 45.0 [facility] LABORATORY RDWCV 16.2 (H) 11.4 - [facility] 13.8 % [facility]ORY MPV 8.7 7.6 - 12.9 [facility] LABORATORY nRBC % Auto 0.0 % [facility] nRBC Abs Auto 0.000 0.000 - [facility] 0.000 [facility] x10(3)/[facility] LABORATORY Specimen Anatomical Collection Method Collection Time Receive d Time (Source) Location / / Volume Laterality Blood specimen 08/09/2017 1:10 AM 018 1:19 (specimen) EST AM EST Resulting Agency Comment Spec In Lab Yonathan Smith MD HEMATOLOGY ORDERABLES Performing Organization Address City/State/[place] [address] (ABNORMAL) Prothrombin Time (08/09/2017 1:10 AM EST) P athologist Signature PT 16.0 (H) 11.8 - 14.0 [facility] sec [facility] INR 1.3 (H) 0.9 - 1.1 [facility] Comment: An INR <2.0 [...] Organization Address City/State/Z[place] [address] (ABNORMAL) Basic Metabolic Panel (non-fasting) (08/09/2017 1:10 AM EST) P athologist Signature Glucose Lvl 108 65 - 199 [facility] mg/dL [facility] Comment: Diabetes: >=200 mg/dL plus symp toms BUN 34 (H) 10 - 20 mg/dL [facility] Creatinine 1.54 (H) 0.80 - 1.50 mg/dL [facility] Sodium 138 135 - 145 mmol/L [facility] Potassium 4.5 3.5 - 5.0 mmol/L [facility] Comment: Please note: ??Patients with WBC >100,00 0 may have falsely elevated Potassium levels. ??For accurate Potassium quantif ication in these patients send serum separator tube (gold top) for subsequent determinations. ??Contact the Clinical Chemistry Laboratory if there are any qu estions. Chloride 96 (L) 98 - 107 mmol/L [facility] CO2 29 22 - 31 mmol/L [facility] Anion Gap 13 5 - 15 mmol/L [facility] Calcium 8.3 (L) 8.5 - 10.5 mg/dL [facility] Estimated GFR 45 (L) >=60 [facility] Comment: The reported eGFR should be multiplied b y 1.2 for patients. The MDRD is not an appropriate measure o f renal function for patients with body mass extremes or in patients with acute kidney failure. http://[employer]/DHnkdep http://[employer]/DHMCnkf Specimen Anatomical Collection Method Collection Time Receive d Time (Source) Location / / Volume Laterality Blood specimen 08/09/2017 1:10 AM 018 1:19 (specimen) EST AM EST Resulting Agency Comment Spec In Lab Yonathan Smith MD CHEMISTRY ORDERABLES Performing Organization Address City/[facility]/[place] [address] POCT Glucose (08/09/2017 12:05 AM EST) athologist Signature POC Glucose 128 65 - 199 [facility] mg/dL [facility] Comment: Supplemental ranges: <140 mg/dL before meals <180 mg/dL all other times of the day Specimen Anatomical Collection Method Collection Time Receive d Time (Source) Location / / Volume Laterality Blood specimen 08/09/2017 12:05 8 (specimen) AM EST 12:05 AM EST Yonathan Smith MD POINT OF CARE TEST ORDERABLE S Performing Organization Address City/[facility]/[place] [address] (ABNORMAL) POCT Glucose (08/08/2017 7:36 PM EST) athologist Signature POC Glucose 215 (H) 65 - 199 [facility] mg/dL [facility] Comment: Supplemental ranges: <140 mg/dL before meals <180 mg/dL all other times of the day Specimen Anatomical Collection Method Collection Time Receive d Time (Source) Location / / Volume Laterality Blood specimen 08/08/2017 7:36 PM 018 7:36 (specimen) EST PM EST Yonathan Smith MD POINT OF CARE TEST ORDERABLE S Performing Organization Address City/[facility]/[place] [address] (ABNORMAL) POCT Glucose (08/08/2017 6:23 PM EST) athologist Signature POC Glucose 216 (H) 65 - 199 [facility] mg/dL [facility] Comment: Supplemental ranges: <140 mg/dL before meals <180 mg/dL all other times of the day Specimen Anatomical Collection Method Collection Time Receive d Time (Source) Location / / Volume Laterality Blood specimen 08/08/2017 6:23 PM 018 6:23 (specimen) EST PM EST Yonathan Smith MD POINT OF CARE TEST ORDERABLE S Performing Organization Address City/[facility]/[place] [address] (ABNORMAL) APTT (08/08/2017 6:00 PM EST) athologist Signature PTT 97 (H) 25 - 35 sec [facility] Comment: The recommended therapeutic range for fu ll dose, unfractionated heparin at [facility] is 80 ? 114 seconds. The use [...] Smith MD HEMATOLOGY ORDERABLES Performing Organization Address City/[facility]/[place] [address] POCT Glucose (08/08/2017 4:42 PM EST) athologist Signature POC Glucose 78 65 - 199 [facility] mg/dL [facility] Comment: Supplemental ranges: <140 mg/dL before meals <180 mg/dL all other times of the day Specimen Anatomical Collection Method Collection Time Receive d Time (Source) Location / / Volume Laterality Blood specimen 08/08/2017 4:42 PM 018 4:42 (specimen) EST PM EST Yonathan Smith MD POINT OF CARE TEST ORDERABLE S Performing Organization Address City/State/[place] [address] (ABNORMAL) POCT Glucose (08/08/2017 4:01 PM EST) athologist Signature POC Glucose 58 (L) 65 - 199 [facility] mg/dL [facility] Comment: Supplemental ranges: <140 mg/dL before meals <180 mg/dL all other times of the day Specimen Anatomical Collection Method Collection Time Receive d Time (Source) Location / / Volume Laterality Blood specimen 08/08/2017 4:01 PM 018 4:01 (specimen) EST PM EST Yonathan Smith MD POINT OF CARE TEST ORDERABLE S Performing Organization Address City/State/ZIP Code Phon e Number [address] POCT Glucose (08/08/2017 11:51 AM EST) athologist Signature POC Glucose 90 65 - 199 [facility] Comment: Supplemental ranges: <140 mg/dL before meals <180 mg/dL all other times of the day Specimen Anatomical Collection Method Collection Time Receive d Time (Source) Location / / Volume Laterality Blood specimen 08/08/2017 11:51 8 (specimen) AM EST 11:51 AM EST Yonathan Smith MD POINT OF CARE TEST ORDERABLE S Performing Organization Address City/State/[place] [address] (ABNORMAL) APTT (08/08/2017 10:27 AM EST) athologist Signature PTT 64 (H) 25 - 35 sec [facility] Comment: The recommended therapeutic range for fu ll dose, unfractionated heparin at [facility] is 80 ? 114 seconds. The use [...] Organization Address City/State/ZIP Code Phon e Number [address] POCT Glucose (08/08/2017 8:02 AM EST) athologist Signature POC Glucose 178 65 - 199 [facility] mg/dL [facility] Comment: Supplemental ranges: <140 mg/dL before meals <180 mg/dL all other times of the day Specimen Anatomical Collection Method Collection Time Receive d Time (Source) Location / / Volume Laterality Blood specimen 08/08/2017 8:02 AM 018 8:02 (specimen) EST AM EST Yonathan Smith MD POINT OF CARE TEST ORDERABLE S Performing Organization Address City/[facility] Phon e Number [address] (ABNORMAL) APTT (08/08/2017 4:51 AM EST) athologist Signature PTT >160 25 - 35 [facility] (Critical) sec [facility] Comment: Called by: HOWARD, Read back by: Melba Jaramillo, Date/Time:08/08/17 05:43. The recommended therapeutic range for fu ll dose, unfractionated heparin at [facility] is 80 ? 114 seconds. The use [...] Smith MD HEMATOLOGY ORDERABLES Performing Organization Address City/[facility]/ZIP Code Phon e Number [address] (ABNORMAL) Differential, Automated (08/08/2017 4:51 AM EST) Patholo gist Method Time Signature Neutrophils % 77.9 % [facility] LABORATORY Neutr Abs (ANC) 8.17 (H) 1.70 - [facility] 6.10 [facility] x10(3)/[facility] LABORATORY Lymphocytes % 10.3 % [facility] LABORATORY Lymphocytes Abs 1.1 0.9 - 3.2 [facility] x10(3)/[facility] LABORATORY Monocytes % 7.0 % [facility] LABORATORY Monocyte Abs 0.7 0.3 - 0.9 [facility] x10(3)/[facility] LABORATORY Eosinophils % 3.6 % [facility] LABORATORY Eosinophils Abs 0.4 0.0 - 0.4 [facility] x10(3)/[facility] LABORATORY Basophils % 0.5 % [facility] LABORATORY Basophils Abs 0.0 0.0 - 0.1 [facility] x10(3)/[facility] LABORATORY Immature Gran % 0.70 % [facility] LABORATORY Comment: Immature granulocytes(IG's)percentage an d absolute count will include metamyelocytes, myelocytes, and promyelo cytes. Blood smears from CBCs yielding IG's will be scanned manually for concor dance. If this scan disagrees with the automated IG or if promyelocytes are not ed, a manual differential will be performed. Melisa Gran Abs 0.07 (H) 0.00 - 0.04 x10(3)/[facility] LABORATORY Specimen Anatomical Collection Method Collection Time Receive d Time (Source) Location / / Volume Laterality Blood specimen 08/08/2017 4:51 AM 018 5:14 (specimen) EST AM EST Resulting Agency Comment Spec In Lab Yonathan Smith MD HEMATOLOGY ORDERABLES Performing Organization Address City/State/ZIP [place] [address] (ABNORMAL) Hemogram (08/08/2017 4:51 AM EST) Analysis Performed At Patho logist Time Signature WBC 10.5 (H) 4.0 - 9.5 [facility] x10(3)/[facility] LABORATORY RBC 3.27 (L) 4.58 - [facility] 5.54 [facility] x10(6)/[facility] LABORATORY Hemoglobin 9.3 (L) 13.7 - [facility] 16.5 gm/dL [facility] LABORATORY Hematocrit 30.3 (L) 40.5 - [facility] 48.5 % [facility] LABORATORY MCV 92.7 82.9 - [facility]1 [facility] LABORATORY MCH 28.4 27.5 - [facility] 32.1 pg [facility] LABORATORY MCHC 30.7 (L) 32.0 - [facility] 35.7 gm/dL [facility] LABORATORY Platelets 252 145 - 357 [facility] x10(3)/[facility] LABORATORY RDWSD 54.6 (H) 36.0 - [facility] 45.0 [facility] LABORATORY RDWCV 16.2 (H) 11.4 - [facility] 13.8 % [facility] LABORATORY MPV 9.1 7.6 - 12.9 [facility] LABORATORY nRBC % Auto 0.0 % [facility] LABORATORY nRBC Abs Auto 0.000 0.000 - [facility] 0.000 [facility] x10(3)/[facility] LABORATORY Specimen Anatomical Collection Method Collection Time Receive d Time (Source) Location / / Volume Laterality Blood specimen 08/08/2017 4:51 AM 018 5:14 (specimen) EST AM EST Resulting Agency Comment Spec In Lab Yonathan Smith MD HEMATOLOGY ORDERABLES Performing Organization Address City/State/ZIP [place] [address] (ABNORMAL) Prothrombin Time (08/08/2017 4:51 AM EST) P athologist Signature PT 18.1 (H) 11.8 - 14.0 [facility] LABORATORY INR 1.5 (H) 0.9 - 1.1 [facility] LABORATORY Comment: An INR <2.0 indicates adequate [...] Organization Address City/State/ZIP [place] [address] (ABNORMAL) Basic Metabolic Panel (non-fasting) (08/08/2017 4:51 AM EST) athologist Signature Glucose Lvl 229 (H) 65 - 199 [facility] mg/dL [facility] LABORATORY Comment: Diabetes: >=200 mg/dL plus symp toms BUN 35 (H) 10 - 20 mg/dL [facility] LABORATORY Creatinine 1.57 (H) 0.80 - 1.50 mg/dL [facility] LABORATORY Sodium 136 135 - 145 mmol/L [facility] LABORATORY Potassium 4.5 3.5 - 5.0 mmol/L [facility] LABORATORY Comment: Please note: ??Patients with WBC >100,00 0 may have falsely elevated Potassium levels. ??For accurate Potassium quantif ication in these patients send serum separator tube (gold top) for subsequent determinations. ??Contact the Clinical Chemistry Laboratory if there are any qu estions. Chloride 94 (L) 98 - 107 mmol/L [facility] LABORATORY CO2 25 22 - 31 mmol/L [facility] LABORATORY Anion Gap 17 (H) 5 - 15 mmol/L [facility] LABORATORY Calcium 7.9 (L) 8.5 - 10.5 mg/dL [facility] LABORATORY Estimated GFR 44 (L) >=60 [facility] LABORATORY Comment: The reported eGFR should be multiplied b y 1.2 for patients. The MDRD is not an appropriate measure o f renal function for patients with body mass extremes or in patients with acute kidney failure. [email or web address]/DHnkdep [email or web address] GupShup/[facility] TULSAnkf Specimen Anatomical Collection Method Collection Time Receive d Time (Source) Location / / Volume Laterality Blood specimen 08/08/2017 4:51 AM 018 5:14 (specimen) EST AM EST Resulting Agency Comment Spec In Lab Yonathan Smith MD CHEMISTRY ORDERABLES Performing Organization Address City/[facility]/ZIP Code Phon e Number [address] POCT Glucose (08/08/2017 4:20 AM EST) athologist Signature POC Glucose 193 65 - 199 [facility] mg/dL [facility] LABORATORY Comment: Supplemental ranges: <140 mg/dL before meals <180 mg/dL all other times of the day Specimen Anatomical Collection Method Collection Time Receive d Time (Source) Location / / Volume Laterality Blood specimen 08/08/2017 4:20 AM 018 4:20 (specimen) EST AM EST Yonathan Smith MD POINT OF CARE TEST ORDERABLE S Performing Organization Address City/[facility]/ZIP Code Phon e Number [address] POCT Glucose (08/07/2017 11:11 PM EST) athologist Signature POC Glucose 124 65 - 199 [facility] mg/dL [facility] LABORATORY Comment: Supplemental ranges: <140 mg/dL before meals <180 mg/dL all other times of the day Specimen Anatomical Collection Method Collection Time Receive d Time (Source) Location / / Volume Laterality Blood specimen 08/07/2017 11:11 8 (specimen) PM EST 11:11 PM EST Yonathan Smith MD POINT OF CARE TEST ORDERABLE S Performing Organization Address City/[facility]/ZIP Code Phon e Number [address] (ABNORMAL) APTT (08/07/2017 10:18 PM EST) athologist Signature PTT 114 (H) 25 - 35 sec [facility] LABORATORY Comment: The recommended therapeutic range for fu ll dose, unfractionated heparin at [facility] is 80 ? 114 seconds. The use [...] Organization Address City/State/ZIP Code Phon e Number [address] POCT Glucose (08/07/2017 8:10 PM EST) athologist Signature POC Glucose 140 65 - 199 [facility] mg/dL [facility] LABORATORY Comment: Supplemental ranges: <140 mg/dL before meals <180 mg/dL all other times of the day Specimen Anatomical Collection Method Collection Time Receive d Time (Source) Location / / Volume Laterality Blood specimen 08/07/2017 8:10 PM 018 8:10 (specimen) EST PM EST Yonathan Smith MD POINT OF CARE TEST ORDERABLE S Performing Organization Address City/[facility]/ZIP Code Phon e Number [address] POCT Glucose (08/07/2017 5:27 PM EST) athologist Signature POC Glucose 187 65 - 199 [facility] mg/dL [facility] LABORATORY Comment: Supplemental ranges: <140 mg/dL before meals <180 mg/dL all other times of the day Specimen Anatomical Collection Method Collection Time Receive d Time (Source) Location / / Volume Laterality Blood specimen 08/07/2017 5:27 PM 018 5:27 (specimen) EST PM EST Yonathan Smith MD POINT OF CARE TEST ORDERABLE S Performing Organization Address City/[facility]/ZIP Code Phon e Number [address] POCT Glucose (08/07/2017 3:29 PM EST) athologist Signature POC Glucose 86 65 - 199 [facility] mg/dL [facility] LABORATORY Comment: Supplemental ranges: <140 mg/dL before meals <180 mg/dL all other times of the day Specimen Anatomical Collection Method Collection Time Receive d Time (Source) Location / / Volume Laterality Blood specimen 08/07/2017 3:29 PM 018 3:29 (specimen) EST PM EST Yonathan Smith MD POINT OF CARE TEST ORDERABLE S Performing Organization Address City/[facility]/[place] [address] (ABNORMAL) APTT (08/07/2017 2:50 PM EST) athologist Signature PTT 60 (H) 25 - 35 sec [facility] LABORATORY Comment: The recommended therapeutic range for fu ll dose, unfractionated heparin at [facility] is 80 ? 114 seconds. The use [...] Smith MD HEMATOLOGY ORDERABLES Performing Organization Address City/[facility]/[place] [address] (ABNORMAL) POCT Glucose (08/07/2017 2:23 PM EST) athologist Signature POC Glucose 55 (L) 65 - 199 [facility] mg/dL [facility] LABORATORY Comment: Supplemental ranges: <140 mg/dL before meals <180 mg/dL all other times of the day Specimen Anatomical Collection Method Collection Time Receive d Time (Source) Location / / Volume Laterality Blood specimen 08/07/2017 2:23 PM 018 2:23 (specimen) EST PM EST Yonathan Smith MD POINT OF CARE TEST ORDERABLE S Performing Organization Address City/[facility]/[place] [address] POCT Glucose (08/07/2017 12:08 PM EST) P athologist Signature POC Glucose 77 65 - 199 [facility] mg/dL [facility] LABORATORY Comment: Supplemental ranges: <140 mg/dL before meals <180 mg/dL all other times of the day Specimen Anatomical Collection Method Collection Time Receive d Time (Source) Location / / Volume Laterality Blood specimen 08/07/2017 12:08 8 (specimen) PM EST 12:08 PM EST Yonathan Smith MD POINT OF CARE TEST ORDERABLE S Performing Organization Address City/State/ZIP [place] [address] (ABNORMAL) Differential, Automated (08/07/2017 7:30 AM EST) Patholo gist Method Time Signature Neutrophils % 73.8 % [facility] LABORATORY Neutr Abs (ANC) 7.17 (H) 1.70 - [facility] 6.10 [facility] x10(3)/[facility] LABORATORY Lymphocytes % 12.2 % [facility] LABORATORY Lymphocytes Abs 1.2 0.9 - 3.2 [facility] x10(3)/[facility] LABORATORY Monocytes % 9.0 % [facility] LABORATORY Monocyte Abs 0.9 0.3 - 0.9 [facility] x10(3)/[facility] LABORATORY Eosinophils % 3.9 % [facility] LABORATORY Eosinophils Abs 0.4 0.0 - 0.4 [facility] x10(3)/[facility] LABORATORY Basophils % 0.6 % [facility] LABORATORY Basophils Abs 0.1 0.0 - 0.1 [facility] x10(3)/[facility] LABORATORY Immature Gran % 0.50 % [facility] LABORATORY Comment: Immature granulocytes(IG's)percentage an d absolute count will include metamyelocytes, myelocytes, and promyelo cytes. Blood smears from CBCs yielding IG's will be scanned manually for concor dance. If this scan disagrees with the automated IG or if promyelocytes are not ed, a manual differential will be performed. Melisa Gran Abs 0.05 (H) 0.00 - 0.04 x10(3)/[facility] LABORATORY Specimen Anatomical Collection Method Collection Time Receive d Time (Source) Location / / Volume Laterality Blood specimen 08/07/2017 7:30 AM 018 7:45 (specimen) EST AM EST Resulting Agency Comment Spec In Lab Yonathan Smith MD HEMATOLOGY ORDERABLES Performing Organization Address City/State/[place] [address] (ABNORMAL) Hemogram (08/07/2017 7:30 AM EST) Analysis Performed At Patho logist Time Signature WBC 9.7 (H) 4.0 - 9.5 [facility] x10(3)/[facility] LABORATORY RBC 3.54 (L) 4.58 - [facility] 5.54 [facility] x10(6)/[facility] LABORATORY Hemoglobin 9.9 (L) 13.7 - [facility] 16.5 gm/dL [facility] LABORATORY Hematocrit 32.3 (L) 40.5 - [facility] 48.5 % [facility] LABORATORY MCV 91.2 82.9 - [facility] 93.1 [facility] LABORATORY MCH 28.0 27.5 - [facility] 32.1 pg [facility] LABORATORY MCHC 30.7 (L) 32.0 - [facility] 35.7 gm/dL [facility] LABORATORY Platelets 312 145 - 357 [facility] x10(3)/[facility] LABORATORY RDWSD 53.2 (H) 36.0 - [facility] 45.0 [facility] LABORATORY RDWCV 16.0 (H) 11.4 - [facility] 13.8 % [facility] LABORATORY MPV 8.9 7.6 - 12.9 [facility] LABORATORY nRBC % Auto 0.0 % [facility] LABORATORY nRBC Abs Auto 0.000 0.000 - [facility] 0.000 [facility] x10(3)/[facility] LABORATORY Specimen Anatomical Collection Method Collection Time Receive d Time (Source) Location / / Volume Laterality Blood specimen 08/07/2017 7:30 AM 018 7:45 (specimen) EST AM EST Resulting Agency Comment Spec In Lab Yonathan Smith MD HEMATOLOGY ORDERABLES Performing Organization Address City/[facility]/[place]IP [place] [address] (ABNORMAL) Basic Metabolic Panel (non-fasting) (08/07/2017 7:30 AM EST) athologist Signature Glucose Lvl 80 65 - 199 [facility] mg/dL [facility] LABORATORY Comment: Diabetes: >=200 mg/dL plus symp toms BUN 31 (H) 10 - 20 mg/dL [facility] LABORATORY Creatinine 1.22 0.80 - 1.50 mg/dL [facility] LABORATORY Sodium 140 135 - 145 mmol/L [facility] LABORATORY Potassium 4.5 3.5 - 5.0 mmol/L [facility] LABORATORY Comment: Please note: ??Patients with WBC >100,00 0 may have falsely elevated Potassium levels. ??For accurate Potassium quantif ication in these patients send serum separator tube (gold top) for subsequent determinations. ??Contact the Clinical Chemistry Laboratory if there are any qu estions. Chloride 99 98 - 107 mmol/L [facility] LABORATORY CO2 29 22 - 31 mmol/L [facility] LABORATORY Anion Gap 12 5 - 15 mmol/L [facility] LABORATORY Calcium 8.5 8.5 - 10.5 mg/dL [facility] LABORATORY Estimated GFR 59 (L) >=60 [facility] LABORATORY Comment: The reported eGFR should be multiplied b y 1.2 for patients. The MDRD is not an appropriate measure o f renal function for patients with body mass extremes or in patients with acute kidney failure. [email or web address]/DHnkdep [email or web address]/DHMCnkf Specimen Anatomical Collection Method Collection Time Receive d Time (Source) Location / / Volume Laterality Blood specimen 08/07/2017 7:30 AM 018 7:45 (specimen) EST AM EST Resulting Agency Comment Spec In Lab Yonathan Smith MD CHEMISTRY ORDERABLES Performing Organization Address City/[facility]/ZIP Code Phon e Number [address] POCT Glucose (08/07/2017 7:27 AM EST) P athologist Signature POC Glucose 81 65 - 199 [facility] mg/dL [facility] LABORATORY Comment: Supplemental ranges: <140 mg/dL before meals <180 mg/dL all other times of the day Specimen Anatomical Collection Method Collection Time Receive d Time (Source) Location / / Volume Laterality Blood specimen 08/07/2017 7:27 AM 018 7:27 (specimen) EST AM EST Yonathan Smith MD POINT OF CARE TEST ORDERABLE S Performing Organization Address City/State/ZIP Code Phon e Number [address] APTT (08/07/2017 7:04 AM EST) athologist Signature PTT 34 25 - 35 sec [facility] LABORATORY Comment: The recommended therapeutic range for fu ll dose, unfractionated heparin at [facility] is 80 ? 114 seconds. The use [...] Organization Address City/State/[place] [address] (ABNORMAL) Prothrombin Time (08/07/2017 7:04 AM EST) athologist Signature PT 17.3 (H) 11.8 - 14.0 [facility] LABORATORY INR 1.4 (H) 0.9 - 1.1 [facility] LABORATORY Comment: An INR <2.0 indicates adequate [...] Organization Address City/State/ZIP Code Phon e Number [address] POCT Glucose (08/07/2017 4:03 AM EST) athologist Signature POC Glucose 93 65 - 199 [facility] mg/dL [facility] LABORATORY Comment: Supplemental ranges: <140 mg/dL before meals <180 mg/dL all other times of the day Specimen Anatomical Collection Method Collection Time Receive d Time (Source) Location / / Volume Laterality Blood specimen 08/07/2017 4:03 AM 018 4:03 (specimen) EST AM EST Yonathan Smith MD POINT OF CARE TEST ORDERABLE S Performing Organization Address City/[facility]/[place] [address] POCT Glucose (08/07/2017 12:04 AM EST) athologist Signature POC Glucose 107 65 - 199 [facility] mg/dL [facility] LABORATORY Comment: Supplemental ranges: <140 mg/dL before meals <180 mg/dL all other times of the day Specimen Anatomical Collection Method Collection Time Receive d Time (Source) Location / / Volume Laterality Blood specimen 08/07/2017 12:04 8 (specimen) AM EST 12:04 AM EST Yonatahn Smith MD POINT OF CARE TEST ORDERABLE S Performing Organization Address City/[facility]/ZIP Code Phon e Number [address] POCT Glucose (08/06/2017 7:56 PM EST) athologist Signature POC Glucose 178 65 - 199 [facility] mg/dL [facility] LABORATORY Comment: Supplemental ranges: <140 mg/dL before meals <180 mg/dL all other times of the day Specimen Anatomical Collection Method Collection Time Receive d Time (Source) Location / / Volume Laterality Blood specimen 08/06/2017 7:56 PM 018 7:56 (specimen) EST PM EST Yonathan Smith MD POINT OF CARE TEST ORDERABLE S Performing Organization Address City/State/ZIP [place] [address] TcPO2 (08/06/2017 2:32 PM EST) Component Value Ref Test Analysis Performed At [facility] gist Range Method Time Signature VB Text Department: Vascular Surgery Lab VASCUBASE Report Patient: [id number] (GREGORY HOANG) CPT: 9341385 ICD10: I99.8 Referring Physician: YONATHAN SMITH ?? [...] disorder Ischemic foot Unspecified circulatory system disorder Ischemia of foot Unspecified circulatory system disorder documented in [...] PRN, Starting on 08/07/17 at 1658, Until Wed08/16/17 at 1425, Pain, [...] First dose on Ivis 08/12/17 at 1400, Until Discontinued, If the daily [...] Mcgrath RN) 0630 (Given - Provider: Mira Truong, VAMSI)1119 (Given - Provider: Dory Truong, VAMSI) 1,000 mg, Oral, EVERY 6 HOURS WHILE AWAK E, First dose on Wed08/06/17 at 1800, Until Discontinued, Maximum dose of acetaminophen is 4000 mg from all sources in 24 hours., Routine AMIOdarone (CORDARONE; PACERONE) tablet 400 mg 0823 (G iven - Provider: Chiquis Mcgrath RN) 0807 (Given - Provider: Chiquis Mcgrath RN) 0800 (G iven - Provider: Dory Truong RN) 400 mg, Oral, DAILY, First dose on Wed at 1700, Until Discontinued, Routine ascorbic acid (vitamin C) (VITAMIN C) tablet 500 mg 08 24 (Given - Provider: Chiquis Mcgrath RN) 0807 (Given - Provider: Chiquis Mcgrath RN) 08 (Given - Provider: Dory Truogn, VAMSI) 500 mg, Oral, DAILY, First dose on Wed at 1900, Until Discontinued, Routine aspirin EC tablet 81 mg 0823 (Given - Provider: Chiquis muñoz RN) 0800 (Given - Provider: Dory Truong, RN) 81 mg, Oral, EVERY OTHER DAY, [...] Chiquis cho RN)1756 (Stopped - Provider: Henrique Marks, VAMSI) 1715 (New Bag - Provider: Chiquis cho, VAMSI)1745 (Stopped - Provider: Chiquis Mcgrath RN) 2 g, Intravenous, EVERY 24 HOURS, First dose on Wed08/06/17 at 1700, Until Discontinued, Administer over 30 Minutes, Indication for (Active or Suspected): Skin/Skin Structure docusate sodium (COLACE) capsule 100 mg 08 (Given - Provider: Chiquis Mcgrath RN)2012 (Given - Provider: Henrique Makrs, VAMSI) 08 (Given - Provider: Chiquis Mcgrath RN)2022 (Given - Provider: Mira Truong, VAMSI) 0800 (Given - Provider: Dory Truong, VAMSI) 100 mg, Oral, 2 TIMES DAILY, First dose on Wed08/13/17 at 0245, Until Discontinued, Routine enoxaparin (LOVENOX) injection 130 mg (CANCELED) 2009 (Given - Provider: Henrique Marks, VAMSI) 130 mg, Subcutaneous, NIGHTLY, First dos e [...] Mcgrath RN)1730 (Given - Provider: Chiquis Mcgrath, VAMSI) 0746 (Given - Provider: Chiquis muñoz RN)1230 (Given - Provider: Chiquis Mcgrath RN)1708 (Given - Provider: Chiquis Mcgrath, VAMSI) 0749 (Given - Provider: Dory Yuan ams, RN)1200 (Not Given - Provider: Dory Truong RN - Reason: Patient/family refused) 11 Units, Subcutaneous, 3 TIMES DAILY WI TH MEALS, First dose on Wed08/07/17 at [...] Dory Truong, VAMSI - Reason: Patient/family refused) 2-8 Units, Subcutaneous, EVERY 4 HOURS S CHEDULED, First dose on 08/06/17 at 2000, Until Discontinued, CORRECTION BOLUS Moderate BG 140 - 160 Give 2 units BG 161 - 200 Give 4 units BG 201 - 240 Gi 1213 (Given - Provider: Chiquis Mcgrath, RN - Comment: BG 141)1729 (Given - Provider: Chiquis Mcgrath, RN - Comment: BG 174)2008 (Given - Provider: Henrique Marks, VAMSI) 1200 (Not Given - Provider: Chiquis Mcgrath RN - Reason: Order parameters not met - Comment: BG 135)1707 (Given - Provider: Chiquis Mcgrath, RN)2024 (Not Given - Provider: Mira Truong, [...] on Wed08/07/17 at 0600, Until Discontinued, Routine lidocaine (LIDODERM) 5 % patch 1 patch(Linked Group 2) 1732 (Not Given - Provider: Chiquis Mcgrath RN - Reason: Patient/family refused) 1699 (Not Given - Provider: Chiqusi Mcgrath, VAMSI - Reason: Patient/family refused)2021 (Patch Applied - Provider: Mira Truong, RN - Comment: right foot) 1 patch, [...] RN) 0900 (Patch Removed - Provider: Dory Truong, RN) Transdermal, EVERY 24 HOURS, First dose on 08/07/17 at 0445, Until Discontinued, Remove lidocaine 5 %(700 mg/patch) patch lisinopril (PRINIVIL;ZESTRIL) tablet 2.5 mg 0825 (Give n - Provider: Chiquis Mcgrath RN) 0806 (Given - Provider: Chiquis Mcgrtah RN) 0800 (G iven - Provider: Dory Truong, RN) 2.5 mg, Oral, DAILY, First dose on Sat at 0900, Until Discontinued, Routine magnesium oxide (MAG-OX) tablet 400 mg 0826 (Given - P rovider: Chiquis Mcgrath RN)2010 (Given - Provider: Henrique Marks RN) 0808 (Given - Provider: Chiquis Mcgrath RN)2024 (Given - Provider: Mira Truong RN) 0800 [...] Marks RN) 0900 (Given - Provider: Chiquis Mcgrath RN)2022 (Hold - Provider: Mira Truong RN - Reason: See comment - Comment: BP 95/58. Per Dr. Flores. Ok to hold) 0800 (Given - Provider: Dory Truong RN) 25 mg, Oral, 2 TIMES DAILY, First dose o n Wed08/06/17 at 2100, Until Discontinued, Routine senna (SENOKOT) tablet 8.6 mg 0826 (Given - Provider: Chiquis Mcgrath RN)2011 (Given - Provider: Henrique Marks, VAMSI) 0808 (Given - Provider: Chiquis Mcgrath RN)2024 [...] Henrique Marks RN)1715 (Given - Provider: Chiquis Mcgrath, VAMSI) 0631 (Given - Provider: Mira Truong RN) [...] discontinued. warfarin (COUMADIN) tablet 2.5 mg (COMPLETED) 1723 (Gi keke - Provider: Chiquis Mcgrath RN) [...] mg 0454 (Given - P rovider: Henrique Marks, VAMSI)0824 (Given - Provider: Chiquis Mcgrath, VAMSI)1135 (Given - Provider: Chiquis Mcgrath RN)1751 (Given - Provider: Chiquis Mcgrath RN) 0157 (Given - Provider: Melba Jaramillo, VAMSI)0807 (Given - Provider: Chiquis Mcgrath, VAMSI)1159 (Given - Provider: Chiquis Mcgrath RN)1542 (Given - Provider: Kim Borges RN)2144 (Given - Provider: Alyson Middleton, VAMSI) 0427 (Given - Provider: Mira Truong RN)0751 [...] Oral, EVERY 6 HOURS PRN, Startin g 08/06/17 at 1629, Until 08/16/17 at 1425, Anxiety, Routine polyethylene glycol (MIRALAX) packet 17 g 17 g, Oral, DAILY PRN, Starting Wed 08/11 at 1300, Until 08/16/17 at 1425, Constipation, Routine sodium chloride 0.9 % flush 5-20 mL 5-20 mL, Intravenous, EVERY 1 MIN PRN, S tarting 08/06/17 at 1659, Until 08/16/17 at 1425, flush, [...]
Routine documented in this encounter Care Teams Museum Host/Hostess Relationship Specialty Start Date End Date Lovely Vicente MD PCP - General 04/16/[address] [place] [address] documented as of this encounter
--- OUTSIDE RECORDS SUMMARY | 2022-02-06 13:35 | XMS_ITS | Encounter Summary ---
:1945 Author Organization [facility] [place] [address] Care Team Providers Name Role Phone Lovely Vicente MD Primary Care Provider Encounter Details Date Type Department Care Team Description 08/02/2017 Telephone Pain Management at Angeles Bueno, [place] [address] Social History Tobacco Use Types Packs/Day Years Used Date Former Smoker Cigarettes 3 5 Quit: 07/26/18 68 Smokeless Tobacco: Never Used Alcohol Use Standard Drinks/Week Comments No 0 (1 standard drink = 0.6 oz pure alcoho l) Sex Assigned at Date Recorded Not on file documented as of this encounter Miscellaneous Notes Telephone Encounter - Angeles Rodrigez, RN - 08/02/2017 2:42 PM EST Pain Management Center Preauthorization Request Patient: Don Fatima [id number] Fax received from [facility] requesting we obtain prior authorization for Lidocaine patches prescribed by Barbra Soares APRN. RX insurance plan: [employer] insurance telephone: [phone] Patient Diagnosis: right foot pain secondary to PVD and ischemia Previous medications attempted: Tylenol, Tramadol, Dilaudid The following action was taken after discussion with the professional services manager: _x_ pharmacy informed Authorized dosage or amount: 5% on patch on for 12 hours, then remove for 12 hours. Angeles Rodrigez, RN documented in this encounter Plan of Treatment Upcoming Encounters Date Type Specialty Care Team Description 02/19/2022 Laboratory Appointment Lab 02/19/2022 Office Visit Cardiology Liz Poole PA [facility] er Cardiology Dept [place], [place] [address] (Wo rk) 03/12/2022 Office Visit Cardiology Vitaliy Nobles MD [facility] ER CARDIOLOGY [place], [place] [address] (Wo rk) documented as of this encounter Visit Diagnoses Not on filedocumented in this encounter Care Teams Power Transformer Repairer Relationship Specialty Start Date End Date Lovely Vicente MD PCP - General 04/16/[address] [place] [address] documented as of this encounter
--- OUTSIDE RECORDS SUMMARY | 2022-02-06 13:35 | XMS_ITS | Encounter Summary ---
:1945 [place] [address] Care Team Providers Name Role Phone Lovely Vicente MD Primary Care Provider Encounter Details Date Type Department Care Team Description 08/04/2017 Notes Only Cardiac Surgery Makayla Wilson APRN [facility] [place] [address] CARDIAC SURGERY [phone] [place], [place] [address] (Wo rk) Social History Tobacco Use Types Packs/Day Years Used Date Former Smoker Cigarettes 3 5 Quit: 07/26/18 69 Smokeless Tobacco: Never Used Alcohol Use Standard Drinks/Week Comments No 0 (1 standard drink = 0.6 oz pure alcoho l) Sex Assigned at Date Recorded Not on file documented as of this encounter Progress Notes Makayla Wilson APRN - 08/04/2017 4:20 PM EST CXR shows intact sternal wires. Will change abx to ceftin, pt planned for or with vascular on Wednesday. Will get ct chest to assess on that admission. Pt aware. documented in this encounter Plan of Treatment Upcoming Encounters Date Type Specialty Care Team Description 02/19/2022 Laboratory Appointment Lab 02/19/2022 Office Visit Cardiology [facility] [place] [place] [address] (Wo rk) 03/12/2022 Office Visit Cardiology Vitaliy Nobles MD [facility] ER CARDIOLOGY [place], [place] [address] (Wo rk) documented as of this encounter Visit Diagnoses Not on filedocumented in this encounter Care Teams Turn Down Attendant Relationship Specialty Start Date End Date Lovely Vicente MD PCP - General 04/16/15 [facility] [address] [place] [address] documented as of this encounter
--- OUTSIDE RECORDS SUMMARY | 2022-02-06 13:35 | XMS_ITS | Encounter Summary ---
:1945 [place] [address] Care Team Providers Name Role Phone Lovely Vicente MD Primary Care Provider Encounter Details Date Type Department Care Team Description 08/04/2017 Notes Only Cardiac Surgery Makayla Wilson STATION ENGINEER [facility] [place] [address] CARDIAC SURGERY [phone] [place], [place] [address] (Wo rk) Social History Tobacco Use Types Packs/Day Years Used Date Former Smoker Cigarettes 3 5 Quit: 07/26/18 69 Smokeless Tobacco: Never Used Alcohol Use Standard Drinks/Week Comments No 0 (1 standard drink = 0.6 oz pure alcoho l) Sex Assigned at Date Recorded Not on file documented as of this encounter Progress Notes Makayla Wilson APRN - 08/04/2017 3:54 PM EST Called to clinic by cardiology to assess pt's sternal wound. 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 Retana. He has had persistent drainage to the distal pole, SS. This started a couple of weeks after a fall. 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 This drainage is minimal, and is accompanied by erythema extending out approx 3cm from the incision. He denies coughing excessively. He does have WBC of 15.8 today. He has multi toes to his right foot that are ischemic and he is scheduled for toe amputations on Wednesday. He was placed on keflex by his pcp about 2 wks ago for the sternal drainage. He is currently starting his third course. Pt will go get pa and lat cxr now. Will assess sternal wires. Pt [place] be [place] Wednesday for a couple of days after toe amputation. Will discuss with attending once CXR is complete. documented in this encounter Plan of Treatment Upcoming Encounters Date Type Specialty Care Team Description 02/19/2022 Laboratory Appointment Lab 02/19/2022 Office Visit Cardiology Liz Poole PA [facility] [place], [place] [address] (Wo rk) 03/12/2022 Office Visit Cardiology Vitaliy Nobles MD [facility] ER CARDIOLOGY [place], [place] [address] (Wo rk) documented as of this encounter Visit Diagnoses Not on filedocumented in this encounter Care Teams Patcher Relationship Specialty Start Date End Date Lovely Vicente MD PCP - General 04/16/15 [address] [place] [address] documented as of this encounter
--- OUTSIDE RECORDS SUMMARY | 2022-02-06 13:35 | XMS_ITS | Encounter Summary ---
:1945 Author Organization [facility] [place] [address] Care Team Providers Name Role Phone Lovely Vicente MD Primary Care Provider Reason for Visit Auth/Cert Specialty Diagnoses / Procedures Referred By Contact Refer red To Contact Diagnoses Critical lower limb ischemia CELLULITIS RT FOOT Procedures EMERGENCY Referral ID Status Reason Start Date Expiration Date Visits Requ ested Visits Authorized [id number] 1 1 Encounter Details Date Type Department Care Team Description 08/06/2017 Hospital En[facility] [place] [address] Social History Tobacco Use Types Packs/Day [...] mg Tablet every 6 hours as needed. cephalexin (KEFLEX) take 1 capsule by 0 8 08/16/2017 500 mg Capsule mouth four times a day for 7 days lisinopril Take 2.5 mg by mouth 0 02/24 (PRINIVIL;ZESTRIL) 2.5 daily. mg Tablet LORazepam (ATIVAN) 0.5 Take 0.5 mg by mouth 0 02/201808/16/2017 mg Tablet as needed. furosemide (LASIX) 20 Take 2 tablets by 60 tablet 3 018 09/06/2019 mg Tablet mouth daily. cefUROXime (CEFTIN) Take 1 tablet by mouth 20 tablet 0 07/2608/16/2017 250 mg Tablet 2 times daily for 10 days. lidocaine (LIDODERM) 5 Place one patch on 30 patch 0 07/3008/16/2017 % Adhesive Patch, right foot for 12 Medicated hours, then remove and do not apply another for 12 hours more. clobetasol (TEMOVATE) Apply 1 Application 1 06/2009/06/2019 [...] every 6 hours as needed for Pain. warfarin (COUMADIN) Take 1 tablet by mouth [...] 02/19/2022 Office Visit Cardiology Liz Poole PA [facility] Cardiology Dept [place], [place] [address] (Wo rk) 03/12/2022 Office Visit Cardiology Vitaliy Nobles MD [facility] CARDIOLOGY [place], [place] [address] (Wo rk) documented as of this encounter Visit Diagnoses Not on filedocumented in this encounter Care Teams Oven Drier Tender Relationship Specialty Start Date End Date Lovely Vicente MD PCP - General 04/16/[address] [place] [address] documented as of this encounter
--- OUTSIDE RECORDS SUMMARY | 2022-02-06 13:35 | XMS_ITS | Encounter Summary ---
:1945 Author Organization [facility] [place] [address] Care Team Providers Name Role Phone Lovely Vicente MD Primary Care Provider Encounter Details Date Type Department Care Team Description 08/06/2017 Orders Only [facility]ascular Surgery at [facility] [place] Moss APRN Ischemia of foot [facility] Jorge [facility] [place] [address] VASCULAR SURGERY [phone] [place], [place] [address] (Wo rk) Social History Tobacco [...] Visit Cardiology Liz Poole PA [facility] er Cardiology Dept [place], [place] [address] (Wo rk) 03/12/2022 Office Visit Cardiology Vitaliy Nobles MD [facility] ER CARDIOLOGY [place], [place] [address] (Wo rk) documented as of this encounter Procedures Procedure Name Priority Date/Time Associated Diagnosis Comme nts AMPUTATION, Routine 08/06/2017 8:17 AM Ischemia of foot TRANSMETATARSAL EST documented in this encounter Results EKG 12 Lead (08/06/2017 12:37 PM EST) Component Value Ref Range Test Analysis Performed Pathologis t Method Time At Signature Ventricular rate 70 BPM MUSE SYSTEM Atrial Rate 70 BPM MUSE SYSTEM P-R Interval 168 ms MUSE SYSTEM QRS Duration 74 ms MUSE SYSTEM Q-T Interval 412 ms MUSE SYSTEM QTC Calculated 444 ms MUSE SYSTEM (Bezet) Calculated P [place] 44 degrees MUSE SYSTEM Calculated R [place] -31 degrees MUSE SYSTEM Calculated T [place] 106 degrees MUSE SYSTEM INTERPRETATION Normal sinus rhythm MUSE SYSTEM Possible Left atrial enlargement Left axis deviation Inferior infarct (cited on or before 25-JAN-2013) Poor R wave progression Poss ible Anterior 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) T wave abnormality, consider lateral ischemia Consider right ventricular involvement in acute inferior inf arct Abnormal ECG When compared with ECG of 07-JUL-2017 19:17, Incomplete right bundle branch block is no longer Present Questionable change in initial forces of Anteroseptal leads Confirmed by MD Ortega Timothy ([id number]) on 08/06/2017 12:46:39 PM Specimen Anatomical Collection Method Collection Time Receive d Time (Source) Location / / Volume Laterality 08/06/2017 12:37 08/06/2017 PM EST 12:46 PM EST Arik Clement MD ECG ORDERABLES Performing Organization Address City/[facility]/ZIP Code Phon e Number MUSE SYSTEM (ABNORMAL) Prealbumin (08/06/2017 12:32 PM EST) P athologist Signature Prealbumin 19 (L) 20 - 40 [facility] mg/dL [facility] Comment: Prealbumin levels are generally lower in the pediatric population; adult concentrations are usually attained near puberty. Specimen Anatomical Collection Method Collection Time Receive d Time (Source) Location / / Volume Laterality Blood specimen 08/06/2017 12:32 8 1:15 (specimen) PM EST PM EST Resulting Agency Comment Spec In Lab Arik Clement MD CHEMISTRY ORDERABLES Performing Organization Address City/[facility]/ZIP [facility] [place] [address] (ABNORMAL) Basic Metabolic Panel (non-fasting) (08/06/2017 12:32 PM EST) P athologist Signature Glucose Lvl 92 65 - 199 [facility] mg/dL [facility] Comment: Diabetes: >=200 mg/dL plus symp toms BUN 29 (H) 10 - 20 mg/dL [facility] Creatinine 1.33 0.80 - 1.50 mg/dL [facility] Sodium 138 135 - 145 mmol/L [facility] Potassium 4.6 3.5 - 5.0 mmol/L [facility] Comment: Please note: ??Patients with WBC >100,00 0 may have falsely elevated Potassium levels. ??For accurate Potassium quantif ication in these patients send serum separator tube (gold top) for subsequent determinations. ??Contact the Clinical Chemistry Laboratory if there are any qu estions. Chloride 97 (L) 98 - 107 mmol/L [facility] CO2 25 22 - 31 mmol/L [facility] Anion Gap 16 (H) 5 - 15 mmol/L [facility] Calcium 8.5 8.5 - 10.5 mg/dL [facility] Estimated GFR 53 (L) >=60 [facility] Comment: The reported eGFR should be multiplied b y 1.2 for patients. The MDRD is not an appropriate measure o f renal function for patients with body mass extremes or in patients with acute kidney failure. http://[employer]Our[employer]/DHnkdep http://[employer]/DHMCnkf Specimen Anatomical Collection Method Collection Time Receive d Time (Source) Location / / Volume Laterality Blood specimen 08/06/2017 12:32 8 1:15 (specimen) PM EST PM EST Resulting Agency Comment Spec In Lab Arik Clement MD CHEMISTRY ORDERABLES Performing Organization Address City/State/ZIP Code Phon [place] [address] (ABNORMAL) Hemogram (08/06/2017 12:32 PM EST) Analysis Performed At Patho logist Time Signature WBC 11.8 (H) 4.0 - 9.5 [facility] x10(3)/[facility] LABORATORY RBC 3.49 (L) 4.58 - [facility] 5.54 [facility] x10(6)/[facility] LABORATORY Hemoglobin 9.9 (L) 13.7 - [facility] 16.5 gm/dL [facility] Hematocrit 32.0 (L) 40.5 - [facility] 48.5 % [facility] MCV 91.7 82.9 - [facility] 93.1 [facility] LABORATORY MCH 28.4 27.5 - [facility] 32.1 pg [facility] MCHC 30.9 (L) 32.0 - [facility] gm/dL [facility] Platelets 326 145 - 357 [facility] x10(3)/[facility] LABORATORY RDWSD 53.4 (H) 36.0 - [facility] 45.0 [facility] LABORATORY RDWCV 16.0 (H) 11.4 - [facility] 13.8 % [facility] LABORATORY MPV 9.1 7.6 - 12.9 [facility] LABORATORY nRBC % Auto 0.0 % [facility] LABORATORY nRBC Abs Auto 0.000 0.000 - [facility] 0.000 [facility] x10(3)/[facility] LABORATORY Specimen Anatomical Collection Method Collection Time Receive d Time (Source) Location / / Volume Laterality Blood specimen 08/06/2017 12:32 8 1:15 (specimen) PM EST PM EST Resulting Agency Comment Spec In Lab Arik Clement MD HEMATOLOGY ORDERABLES Performing Organization Address City/State/[place] [address] documented in this encounter Visit Diagnoses Diagnosis Ischemia of foot Unspecified circulatory system disorder documented in this encounter Care Teams Front End Manager Relationship Specialty Start Date End Date Lovely Vicente MD PCP - General 04/16/[address] [place] [address] documented as of this encounter
--- OUTSIDE RECORDS SUMMARY | 2022-02-06 13:35 | XMS_ITS | Encounter Summary ---
:1945 Author Organization [facility] [place] [address] Care Team Providers Name Role Phone Lovely Vicente MD Primary Care Provider Reason for Visit Auth/Cert Specialty Diagnoses / Procedures Referred By Contact Refer red To Contact Diagnoses Critical lower limb ischemia CELLULITIS RT FOOT Procedures EMERGENCY Referral ID Status Reason Start Date Expiration Date Visits Requ ested Visits Authorized [id number] 1 1 Encounter Details Date Type Department Care Team Description 08/04/2017 [facility] Barbara Flower ID thrombosis of [facility] [place] [id number] Social History Tobacco Use Types Packs/Day Years [...] MINI 31 gauge x 4 times daily. 3/16 Needle cephalexin (KEFLEX) take 1 capsule by 0 8 08/16/2017 500 mg Capsule mouth four times a day for 7 days lisinopril Take 2.5 mg by mouth 0 02/24 (PRINIVIL;ZESTRIL) 2.5 daily. mg Tablet LORazepam (ATIVAN) 0.5 Take 0.5 mg by mouth 0 02/201808/16/2017 mg Tablet as needed. furosemide (LASIX) 20 Take 2 tablets by 60 tablet 3 018 09/06/2019 mg Tablet mouth daily. lidocaine (LIDODERM) 5 Place one patch on [...] Poole PA [facility] Cardiology Dept [place], [place] [address] (Wo rk) 03/12/2022 Office Visit Cardiology Vitaliy Nobles MD [facility] CARDIOLOGY [place], [place] [address] (Wo rk) documented as of this encounter Procedures Procedure Name Priority Date/Time Associated Diagnosis Comme [facility] DUPLEX FOR DVT, STAT 08/04/2017 1:08 PM 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 documented in this encounter Results Duplex for DVT, Leg, Unilat (08/04/2017 1:08 PM EST) Component Value Ref Test Analysis Performed At [facility] Range Method Time Signature VB Text Department: Vascular Surgery Lab [facility] Report Patient: [id number] (DON HOANG) CPT: 31594 ICD10: I82.541 Referring Physician: TAMIKO HUTSON ?? Indications: f/u of R thromb us in one of the paired peroneal veins. Patient has atheroembolus to the toes, much worse wi th rest pain. ??Unable to lay flat for very long. ICD10 Diagnosis Code: I82.541 Findings: The RIGHT poplitea l vein is fully compressible. Patent RIGHT peroneal veins with no evidence of th rombus on today's exam but it does appear that there is thrombus on one of the pa ired posterior tibial veins vs just shadowing of the deeper of the two veins by a calcified tibial artery. Interpretation: Patent RIGHT peroneal veins with no eviden ce of thrombus on today's exam but it does appear that there is thrombus on one of the paired posterior tibial veins vs just shadowing of the deeper of the two veins by a calcified tibial artery. Comment: Limited exam per Dr. Clement. Patient seeing Dr. Anthony heaton today in clinic. 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
--- OUTSIDE RECORDS SUMMARY | 2022-02-06 13:35 | XMS_ITS | Encounter Summary ---
:1945 [place] [address] Care Team Providers Name Role Phone Lovely Vicente MD Primary Care Provider Encounter Details Date Type Department Care Team Description 08/04/2017 Orders Only Cardiac Surgery Makayla Wilson APRN [facility] Jorge [facility] [place] [address] CARDIAC SURGERY [phone] [place], [place] [address] (Wo rk) Social History Tobacco [...] Poole PA [facility] er Cardiology Dept [place], [place] [address] (Wo rk) 03/12/2022 Office Visit Cardiology Vitaliy Nobles MD [facility] CARDIOLOGY [place], [place] [address] (Wo rk) documented as of this encounter Visit Diagnoses Not on filedocumented in this encounter Care Teams College Coach Relationship Specialty Start Date End Date Lovely Vicente MD PCP - General 04/16/[address] [place] [address] [address] [facility] [address] [place] [address] documented as of this encounter
--- OUTSIDE RECORDS SUMMARY | 2022-02-06 13:35 | XMS_ITS | Encounter Summary ---
:1945 [place] [address] Care Team Providers Name Role Phone Lovely Vicente MD Primary Care Provider Encounter Details Date Type Department Care Team Description 08/04/2017 Notes Only Pain Management at Barbra Bruno, STACIE [facility] [place] [address] [place] [address] [phone] (Wo rk) Social History Tobacco Use Types Packs/Day Years Used Date Former Smoker Cigarettes 3 5 Quit: 07/26/18 69 Smokeless Tobacco: Never Used Alcohol Use Standard Drinks/Week Comments No 0 (1 standard drink = 0.6 oz pure alcoho l) Sex Assigned at Date Recorded Not on file documented as of this encounter Progress Notes Barbra Soares APRN - 08/04/2017 4:40 PM EST Spoke with Danette Maxwell in cardiology- she communicated that Mr. Fatima has been titrating slowly up on gabapentin since his visit with me last Wednesday, 07/30, but that he has had some confusion and has fallen. I've advised that he should taking the gabapentin (current dose 100 mg bid) at this time. Barbra Soares, MSN, ECOTHERAPIST-BC, [facility] Pain Management Clinic documented in this encounter Plan of Treatment Upcoming Encounters Date Type Specialty Care Team Description 02/19/2022 Laboratory Appointment Lab 02/19/2022 Office Visit Cardiology Liz Poole PA [facility] er Cardiology [place], [place] [address] (Wo rk) 03/12/2022 Office Visit Cardiology Vitaliy Nobles MD [facility] ER CARDIOLOGY [place], [place] [address] (Wo rk) documented as of this encounter Visit Diagnoses Not on filedocumented in this encounter Care Teams Signal Wirer Relationship Specialty Start Date End Date Lovely Vicente MD PCP - General 04/16/[address] [place] [address] documented as of this encounter
--- OUTSIDE RECORDS SUMMARY | 2022-02-06 13:35 | XMS_ITS | Encounter Summary ---
:1945 Author Organization [facility] [place] [address] Care Team Providers Name Role Phone Lovely Vicente MD Primary Care Provider Reason for Visit Auth/Cert Specialty Diagnoses / Procedures Referred By Contact Refer red To Contact Diagnoses Critical lower limb ischemia CELLULITIS RT FOOT Procedures EMERGENCY Referral ID Status Reason Start Date Expiration Date Visits Requ ested Visits Authorized [id number] 1 1 Encounter Details Date Type Department Care Team Description 08/06/2017 Laboratory Appointment Lab at [facility]schemia [facility] [place] [address] Social History Tobacco Use Types Packs/Day [...] [facility] er Cardiology Dept [place], [place] [address] (Wo rk) 03/12/2022 Office Visit Cardiology Vitaliy Nobles MD [facility] ER CARDIOLOGY [place], [place] [address] (Wo rk) documented as of this encounter Procedures Procedure Name Priority Date/Time Associated Comments Diagnosis HEMOGRAM Routine 08/06/2017 12:32 PM Ischemia of foot Resu lts for this EST procedure are i n the results section. PREALBUMIN Routine 08/06/2017 12:32 PM Ischemia of foot Resu lts for this EST procedure are i n the results section. BASIC METABOLIC Routine 08/06/2017 12:32 PM Ischemia of foot R esults for this PANEL (NON-FASTING) EST procedur e are in the results section. documented in this encounter Results (ABNORMAL) Prealbumin (08/06/2017 12:32 PM EST) P athologist Signature Prealbumin 19 (L) 20 - 40 [facility] mg[facility]dL [facility] Comment: Prealbumin levels are generally lower in the pediatric population; adult concentrations are usually attained near puberty. Specimen Anatomical Collection Method Collection Time Receive d Time (Source) Location / / Volume Laterality Blood specimen 08/06/2017 12:32 8 1:15 (specimen) PM EST PM EST Resulting Agency Comment Spec In Lab Arik Clement MD CHEMISTRY ORDERABLES Performing Organization Address City/State/[place] [address] (ABNORMAL) Basic Metabolic Panel (non-fasting) (08/06/2017 12:32 PM EST) P athologist Signature Glucose Lvl 92 65 - 199 [facility] mg/dL [facility] Comment: Diabetes: >=200 mg/dL plus symp toms BUN 29 (H) 10 - 20 mg/dL [facility] Creatinine 1.33 0.80 - 1.50 mg/dL [facility] Sodium 138 135 - 145 mmol/L [facility] Potassium 4.6 3.5 - 5.0 mmol/L [facility] Comment: Please note: ??Patients with WBC >100,00 0 may have falsely elevated Potassium levels. ??For accurate Potassium quantif ication in these patients send serum separator tube (gold top) for subsequent determinations. ??Contact the Clinical Chemistry Laboratory if there are any qu estions. Chloride 97 (L) 98 - 107 mmol/L [facility] CO2 25 22 - 31 mmol/L [facility] Anion Gap 16 (H) 5 - 15 mmol/L [facility] Calcium 8.5 8.5 - 10.5 mg/dL [facility] Estimated GFR 53 (L) >=60 [facility] Comment: The reported eGFR should be multiplied b y 1.2 for patients. The MDRD is not an appropriate measure o f renal function for patients with body mass extremes or in patients with acute kidney failure. http://[employer]/DHnkdep http://[employer]/DHnkf Specimen Anatomical Collection Method Collection Time Receive d Time (Source) Location / / Volume Laterality Blood specimen 08/06/2017 12:32 8 1:15 (specimen) PM EST PM EST Resulting Agency Comment Spec In Lab Arik Clement MD CHEMISTRY ORDERABLES Performing Organization Address City/State/[place] [address] (ABNORMAL) Hemogram (08/06/2017 12:32 PM EST) Analysis Performed At Patho logist Time Signature WBC 11.8 (H) 4.0 - 9.5 [facility] x10(3)/[facility] LABORATORY RBC 3.49 (L) 4.58 - [facility] 5.54 [facility] x10(6)/[facility] LABORATORY Hemoglobin 9.9 (L) 13.7 - [facility] 16.5 gm/dL [facility] Hematocrit 32.0 (L) 40.5 - [facility] 48.5 % [facility] MCV 91.7 82.9 - [facility] 93.1 fL [facility] MCH 28.4 27.5 - [place] 32.1 pg [facility] MCHC 30.9 (L) 32.0 - [facility] 35.7 gm/dL [facility] Platelets 326 145 - 357 [facility] x10(3)/[facility] LABORATORY RDWSD 53.4 (H) 36.0 - [facility] 45.0 [facility] LABORATORY RDWCV 16.0 (H) 11.4 - [facility] 13.8 % [facility] MPV 9.1 7.6 - 12.9 [facility] LABORATORY nRBC % Auto 0.0 % [facility]ORY nRBC Abs Auto 0.000 0.000 - [facility] 0.000 [facility] x10(3)/[facility] LABORATORY Specimen Anatomical Collection Method Collection Time Receive d Time (Source) Location / / Volume Laterality Blood specimen 08/06/2017 12:32 8 1:15 (specimen) PM EST PM EST Resulting Agency Comment Spec In Lab Arik Clement MD HEMATOLOGY ORDERABLES Performing Organization Address City/State/[place] [address] documented in this encounter Visit Diagnoses Diagnosis Ischemia of foot Unspecified circulatory system disorder documented in this encounter Care Teams Insole Toe Snipping Machine Operator Relationship Specialty Start Date End Date Lovely Vicente MD PCP - General 04/16/[address] [place] [address] documented as of this encounter
--- OUTSIDE RECORDS SUMMARY | 2022-02-06 13:35 | XMS_ITS | Encounter Summary ---
:1945 Author Organization [facility] [place] [address] Care Team Providers Name Role Phone Lovely Vicente MD Primary Care Provider Reason for Visit Auth/Cert Specialty Diagnoses / Procedures Referred By Contact Refer red To Contact Diagnoses Critical lower limb ischemia CELLULITIS RT FOOT Procedures EMERGENCY Referral ID Status Reason Start Date Expiration Date Visits Requ ested Visits Authorized [id number] 1 1 Encounter Details Date Type Department Care Team Description 08/06/2017 Clinical Support Same Day at [facility] Ischemia of foot [facility] [place] [address] Social History Tobacco Use Types Packs/Day [...] Taken Comments Blood Pressure - - Pulse 72 08/06/2017 11:49 AM EST Temperature - - Respiratory Rate - - Oxygen Saturation 97% 08/06/2017 11:49 AM EST Inhaled Oxygen Concentration - - Weight 86.5 kg (190 lb 9.6 oz) 08/06/2017 11:49 AM EST Height 172.7 cm (5' 8) 08/06/2017 11:49 AM EST Body Mass Index 28.98 08/06/2017 11:49 AM EST documented in this encounter Progress Notes Amparo Feldman RN - 08/06/2017 12:00 PM EST Pt seen in Pre Admit Testing 1230 today. Questionarre reviewed, meds and allergies reviewed. Lab done and EKG done. Consulted w [facility] Cocc about EKG and vs were 113/58,hr70 o2 sat 98, room air. Pt w noother symptoms except severe right foot pain. [facility] clinic called as pt on route there for appt With pt and concerns about foot. They will assess as to best plan for pt. Pt states stopped coumadin . Pt given all preop info just in case surgery on the . documented in this encounter Plan of Treatment Upcoming Encounters Date Type Specialty Care Team Description 02/19/2022 Laboratory Appointment Lab 02/19/2022 Office Visit Cardiology Liz Poole PA [facility] er Cardiology Dept [place], [place] [address] (Wo rk) 03/12/2022 Office Visit Cardiology Vitaliy Nobles MD [facility] CARDIOLOGY [place], [place] [address] (Wo rk) documented as of this encounter Procedures Procedure Name Priority Date/Time Associated Diagnosis Comme nts EKG 12-LEAD Routine 08/06/2017 12:37 PM Ischemia of foot Resu lts for [...] 444 ms MUSE SYSTEM (Bezet) Calculated P Darden 44 degrees MUSE SYSTEM Calculated R Darden -31 degrees MUSE SYSTEM Calculated T Darden 106 degrees MUSE SYSTEM INTERPRETATION Normal sinus [...] Clement MD ECG ORDERABLES Performing Organization Address City/State/ZIP Code Phon e Number MUSE SYSTEM documented in this encounter Visit Diagnoses Diagnosis Ischemia of foot Unspecified circulatory system disorder documented in this encounter Care Teams Mechanist Relationship Specialty Start Date End Date Lovely Vicente MD PCP - General 04/16/[address] [place] [address] documented as of this encounter
--- OUTSIDE RECORDS SUMMARY | 2022-02-06 13:35 | XMS_ITS | Encounter Summary ---
:1945 Author Organization [facility] [place] [address] Care Team Providers Name Role Phone Lovely Vicente MD Primary Care Provider Reason for Visit Auth/Cert Specialty Diagnoses / Procedures Referred By Contact Refer red To Contact Diagnoses Critical lower limb ischemia CELLULITIS RT FOOT Procedures EMERGENCY Referral ID Status Reason Start Date Expiration Date Visits Requ ested Visits Authorized [id number] 1 1 Encounter Details Date Type Department Care Team Description 08/04/2017 Laboratory Appointment Lab [address] [place] [address] Social History Tobacco Use Types Packs/Day [...] Laboratory Appointment Lab 02/19/2022 Office Visit Cardiology iLz Poole PA [facility] er Cardiology Dept [place], [place] [address] (Wo rk) 03/12/2022 Office Visit Cardiology Vitaliy Nobles MD [facility] ER CARDIOLOGY [place], [place] [address] (Wo rk) documented as of this encounter Visit Diagnoses Not on filedocumented in this encounter Care Teams Loss Control Manager Relationship Specialty Start Date End Date Lovely Vicente MD PCP - General 04/16/[address] [place] [address] documented as of this encounter
--- OUTSIDE RECORDS SUMMARY | 2022-02-06 13:35 | XMS_ITS | Encounter Summary ---
:1945 [place] [address] Care Team Providers Name Role Phone Lovely Vicente MD Primary Care Provider Encounter Details Date Type Department Care Team Description 08/03/2017 Hospital Encounter Radiology Library at [place], Tommy Mijares [facility] [place] [address] VASCULAR SURGERY [phone] [place], [place] [address] (Wo rk) Social History Tobacco [...] Start Date End Date Magnesium Oxide 500 Take 500 mg by mouth 0 mg Capsule daily. metFORMIN Take 1 tablet by mouth 60 tablet 12 07/15/2017 (GLUCOPHAGE) 850 mg 2 times daily (with Tablet meals). ACCU-CHEK TERA PLUS 2-3 times daily 100 each 1 07/14/2017 TEST STRP Strip BD INSULIN PEN NEEDLE 1 each by Other route 0 UF MINI 31 gauge x 4 times daily. 10/08 Needle cephalexin (KEFLEX) take 1 capsule by 0 8 08/16/2017 500 mg Capsule mouth four times a day for 7 days cephalexin (KEFLEX) Take 500 mg by mouth 4 0 03/201808/04/2017 500 mg Capsule times daily. LORazepam (ATIVAN) Take 0.5 mg by mouth 0 018 08/16/2017 0.5 mg Tablet as needed. gabapentin Use titration schedule 270 capsule 3 07/30/2017 0 08/04/2017 (NEURONTIN) 100 mg provided to increase Capsule to 300mg tid. lidocaine (LIDODERM) Place one patch on 30 patch 0 018 08/16/2017 5 % Adhesive Patch, right foot for 12 Medicated hours, then remove and do not apply another for 12 hours more. clobetasol (TEMOVATE) Apply 1 Application 1 06/2009/06/2019 0.05 % Solution topically 2 times daily. HYDROmorphone Take 0.5-1 tablets by 15 tablet 0 07/27/2017 08/16/2017 (DILAUDID) 2 mg mouth every 4 hours as Tablet needed for Pain. Take smallest dose needed as infrequently as possible traMADol (ULTRAM) 50 Take 1 tablet by mouth 20 tablet 0 08/201708/16/2017 mg Tablet every 6 hours as needed for Pain. warfarin (COUMADIN) Take 1 tablet by mouth 0 06/2612/12/2021 2.5 mg Tablet daily. [place] pen Inject 20 Units 15 mL 1 07/20/2017 08/16/2017 subcutaneously nightly. acetaminophen Take 2 tablets by 30 tablet 1 07/14/201712/24 (TYLENOL) 500 mg mouth every 6 hours as Tablet needed for Pain. AMIOdarone (PACERONE) Take 1 tablet by mouth 30 tablet 0 10/08/2017 400 mg Tablet daily. atorvastatin Take 1 tablet by mouth 90 tablet 3 07/14/2017 09/06/2019 (LIPITOR) 40 mg every evening. Tablet furosemide (LASIX) 20 Take 1 tablet by [...] (SYNTHROID) 175 mcg daily. Tablet ascorbic acid, Take 500 mg by mouth 0 01/16/2019 vitamin C, (VITAMIN daily. Winter months C) 500 mg Tablet only turmeric root extract Take 500 mg by mouth 2 0 04/18/2018 500 mg Capsule times daily. fish oil-omega-3 Take 2 g by mouth 0 0 04/18/2018 fatty acids 1,000 mg daily. Capsule aspirin 81 mg EC Take 81 mg by mouth 0 01/16/2019 tablet daily. fluocinolone Twice daily to less 60 mL 2 10/04/2012 acetonide (SYNALAR) severe areas of 0.01 % external psoriasis solutionIndications: Psoriasis documented as of this encounter Plan of Treatment Upcoming Encounters Date Type Specialty Care Team Description 02/19/2022 Laboratory Appointment Lab 02/19/2022 Office Visit Cardiology Liz Poole PA [facility] Cardiology Dept [place], [place] [address] (Wo rk) 03/12/2022 Office Visit Cardiology Vitaliy Nobles MD [facility] CARDIOLOGY [place], [place] [address] (Wo rk) documented as of this encounter Procedures Procedure Name Priority Date/Time Associated Diagnosis Comme nts FILM LIBRARY Routine 08/03/2017 12:00 AM Pain Results for this STORAGE ONLY CT EST procedure ar e in HEAD the results section. documented in this encounter Results Film Library- Storage Only CT Head (08/03/2017 12:00 AM EST) Specimen (Source) Anatomical Location Collection Method / Collectio n Time Received Time / Laterality Volume Narrative [facility] - 08/03/2017 6:01 PM EST This exam is for storage only and is aut o-finalizing. Arik Clement MD IMG FILM LIBRARY ORDERABLES Performing Organization Address City/State/ZIP Code Phon e Number RAD [place], [place] documented in this encounter Visit Diagnoses Diagnosis Pain Generalized pain documented in this encounter Care Teams Collections Attorney Relationship Specialty Start Date End Date Lovely Vicente MD PCP - General 04/16/[address] [place] [address] documented as of this encounter
--- OUTSIDE RECORDS SUMMARY | 2022-02-06 13:35 | XMS_ITS | Encounter Summary ---
:1945 [place] [address] Care Team Providers Name Role Phone Lovely Vicente MD Primary Care Provider Encounter Details Date Type Department Care Team Description 08/03/2017 Hospital Encounter Radiology Library at [place], Tommy Mijares [facility] [place] [address] VASCULAR SURGERY [phone] [place], [place] [address] (Wo rk) Social History Tobacco [...] Liz Poole PA [facility] Cardiology Dept [place], [place] [address] (Wo rk) 03/12/2022 Office Visit Cardiology Vitaliy Nobles MD [facility] CARDIOLOGY [place], [place] [address] (Wo rk) documented as of this encounter Procedures Procedure Name Priority Date/Time Associated Diagnosis Comme nts FILM LIBRARY Routine 08/03/2017 12:05 AM Pain Results for this STORAGE ONLY CT EST procedure ar e in PELVIS the results section. documented in this encounter Results Film Library- Storage Only CT Pelvis (08/03/2017 12:05 AM EST) Specimen (Source) Anatomical Location Collection Method / Collectio n Time Received Time / Laterality Volume Narrative [facility] - 08/03/2017 6:03 PM EST This exam is for storage only and is aut o-finalizing. Arik Clement MD IMG FILM LIBRARY ORDERABLES Performing Organization Address City/State/ZIP Code Phon e Number RAD [place], [place] documented in this encounter Visit Diagnoses Diagnosis Pain Generalized pain documented in this encounter Care Teams Service Aide Relationship Specialty Start Date End Date Loevly Vicente MD PCP - General 04/16/[address] [place] [address] documented as of this encounter
--- OUTSIDE RECORDS SUMMARY | 2022-02-06 13:35 | XMS_ITS | Encounter Summary ---
:1945 Author Organization [facility] Address [facility] [place] [address] Care Team Providers Name Role Phone Lovely Vicente MD Primary Care Provider Reason for Visit Auth/Cert Specialty Diagnoses / Procedures Referred By Contact Refer red To Contact Diagnoses Critical lower limb ischemia CELLULITIS RT FOOT Procedures EMERGENCY Referral ID Status Reason Start Date Expiration Date Visits Requ ested Visits Authorized [id number] 1 1 Encounter Details Date Type Department Care Team Description 08/04/2017 Laboratory Lab 3L [place] Cardiomyopathy, unspecified type; Appointment [facility] Systolic congestive heart failure, unspecified congestive heart failure chronicity; Hospital Coronary artery rupture; [facility] Ischemic cardiomyopathy; Drive Atherosclerosis of chilkoot co ronary artery, angina presence unspecified, unspecified whether chilkoot or transplanted heart; [place], [place] Essential hyper tension, malignant; [id number] 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 PROTHROMBIN TIME Routine 08/04/2017 12:55 Coronary artery Resu lts for this PM EST rupture procedure are in Ischemic the results cardiomyopathy section. Atherosclerosis of chilkoot coronary artery, angina presence unspecified, unspecified whether chilkoot or transplanted heart URIC ACID Routine 08/04/2017 12:55 Essential Results for this PM EST hypertension, procedure are in malignant the results section. PRO-BRAIN NATRIURETIC STAT 08/04/2017 12:55 Cardiomyopathy, Results for this PEPTIDE PM EST unspecified type procedure are in Systolic congestive the resu lts heart failure, section. unspecified congestive heart failure chronicity HEMOGLOBIN A1C Routine 08/04/2017 12:55 Diabetes mellitus Resu lts for this PM EST due to underlying procedure are in condition with the results diabetic section. nephropathy, unspecified mcc insulin use status Essential hypertension, malignant COMPREHENSIVE Routine 08/04/2017 12:55 Essential Results fo r this METABOLIC PANEL PM EST hypertension, procedure a re in (NON-FASTING) malignant the results section. documented in this encounter Results Uric acid (08/04/2017 12:55 PM EST) athologist Signature Uric Acid 7.1 3.5 - 8.[address] [facility] mg/dL [facility] Specimen Anatomical Collection Method Collection Time Receive d Time (Source) Location / / Volume Laterality Blood specimen 08/04/2017 12:55 8 1:01 (specimen) PM EST PM EST Resulting Agency Comment Spec In Lab Lovely Vicente MD CHEMISTRY ORDERABLES Performing Organization Address City/State/ZIP [place] [address] (ABNORMAL) Hemogram (08/04/2017 12:55 PM EST) Analysis Performed At Patho logist Time Signature WBC 15.8 (H) 4.0 - 9.[address] [facility] x10(3)/[facility] LABORATORY RBC 3.48 (L) 4.58 [facility] 5.54 [facility] x10(6)/[facility] LABORATORY Hemoglobin 9.9 (L) 13.7 - [facility] 16.5 gm/dL [facility] Hematocrit 31.4 (L) 40.5 - [facility] 48.5 % [facility] MCV 90.2 82.9 - [facility] LABORATORY MCH 28.4 27.5 - [place] R[place] 32.1 pg [facility] MCHC 31.5 (L) 32.0 - [facility] 35.7 gm/dL [facility] Platelets 310 145 - [address] [facility] x10(3)/[facility] LABORATORY RDWSD 51.8 (H) 36.0 - [facility] [address] [facility] LABORATORY RDWCV 15.8 (H) 11.4 - [facility] 13.8 % [facility] MPV 8.9 7.6 - 12.9 [facility] LABORATORY nRBC % Auto 0.0 % [facility] nRBC Abs Auto 0.000 0.000 - [facility].000 [facility] x10(3)/[facility] LABORATORY Specimen Anatomical Collection Method Collection Time Receive d Time (Source) Location / / Volume Laterality Blood specimen 08/04/2017 12:55 8 1:01 (specimen) PM EST PM EST Resulting Agency Comment Spec In Lab Lovely Vicente MD HEMATOLOGY ORDERABLES Performing Organization Address City/State/ZIP [place] [address] (ABNORMAL) Comprehensive metabolic panel (non-fasting) (08/04/2017 12:55 PM EST) P athologist Signature Glucose Lvl 208 (H) 65 - 199 [facility]dL [facility] Comment: Diabetes: >=200 mg/dL plus symp toms BUN 32 (H) 10 - 20 mg/dL [facility] Creatinine 1.58 (H) 0.80 - 1.50 mg/dL [facility] Sodium 136 135 - 145 mmol/L [facility] Potassium 5.5 (H) 3.5 - 5.0 mmol/L [facility] Comment: Please note: ??Patients with WBC >100,00 0 may have falsely elevated Potassium levels. ??For accurate Potassium quantif ication in these patients send serum separator tube (gold top) for subsequent determinations. ??Contact the Clinical Chemistry Laboratory if there are any qu estions. Chloride 97 (L) 98 - 107 mmol/L [facility] CO2 25 22 - 31 mmol/L [facility] Anion Gap 14 5 - 15 mmol/L [facility] Calcium 8.6 8.5 - 10.5 mg/dL [facility] Total Protein 6.9 6.1 - 8.0 gm/dL [facility] Albumin 3.4 3.2 - 5.2 gm/dL [facility] AST 20 0 - 39 unit/L [facility] ALT 21 0 - 55 unit/L [facility] Alk Phos 93 40 - 120 unit/L [facility] Total Bilirubin 0.4 0.2 - 1.3 mg/dL [facility] Estimated GFR 43 (L) >=60 [facility] Comment: The reported eGFR should be multiplied b y 1.2 for patients. The MDRD is not an appropriate measure o f renal function for patients with body mass extremes or in patients with acute kidney failure. http://Friendsee.CashSentinel/DHnkdep http://Space Monkey/DHnkf Specimen Anatomical Collection Method Collection Time Receive d Time (Source) Location / / Volume Laterality Blood specimen 08/04/2017 12:55 8 1:01 (specimen) PM EST PM EST Resulting Agency Comment Spec In Lab Lovely Vicente MD CHEMISTRY ORDERABLES Performing Organization Address City/State/ZIP Code Phon e Number [place] [id number] [address] LAB[address]ORY [address] (ABNORMAL) Hemoglobin A1c (08/04/2017 12:55 PM EST) Analysis Performed At Patho [facility] Time Signature Hemoglobin A1C 6.2 (H) 4.3 - 5.6 [facility] Comment: Reference Range: 4.3 - 5.6% 5.7 - 6.4% - Increased Risk of Developin g Diabetes Mellitus >=6.5% - Consistent with diagnosis of Di abetes Mellitus In the absence of hyperglycemia (i.e. pl asma glucose > 200 mg/dL) or classic symptoms of hyperglycemia a repeat measu rement of HbA1c should be performed on a separate sample to confirm the diagnos is. Diagnosis and Classification of Diabetes Mellitus, Diabetes Care 2013; 36: Suppl. 1, N87-47 Est Avg Gluc See note mg/dL [facility] Comment: Estimated Average Glucose [...] with hemoglobinopathies. Additional resources are available on ADA website. Macario HAMMOND, Ruthann J, Deysi R, et al. ??Tr anslating the A1C assay into estimated average glucose values. ??Diabetes Care 2008:31(8):1010-7149. Specimen Anatomical Collection Method Collection Time Receive d Time (Source) Location / / Volume Laterality Blood specimen 08/04/2017 12:55 8 1:01 (specimen) PM EST PM EST Resulting Agency Comment Spec In Lab Lovely Vicente MD CHEMISTRY ORDERABLES Performing Organization Address [facility] [place] [address] (ABNORMAL) Prothrombin Time (08/04/2017 12:55 PM EST) P athologist Signature PT 35.4 (H) 11.8 - 14.0 [facility] LABORATORY INR 3.5 (H) 0.9 - 1.1 [facility] Comment: An INR <2.0 [...] Location / / Volume Laterality Blood specimen 08/04/2017 12:55 8 1:01 (specimen) PM EST PM EST Resulting Agency Comment Spec In Lab Lovely Vicente MD HEMATOLOGY ORDERABLES Performing Organization Address [facility] [place] [address] (ABNORMAL) pro-Brain Natriuretic Peptide (08/04/2017 12:55 PM EST) P athologist Signature ProBNP 3,133 (H) <=125 [facility] pg/mL [facility] Specimen Anatomical Collection Method Collection Time Receive d Time (Source) Location / / Volume Laterality Blood specimen 08/04/2017 12:55 8 1:01 (specimen) PM EST PM EST Resulting Agency Comment Spec In Lab Danette Maxwell APRN CHEMISTRY ORDERABLES Performing Organization Address City/State/ZIP Code [place] [address] documented in this encounter Visit Diagnoses Diagnosis Cardiomyopathy, unspecified type Systolic congestive heart failure, unspe cified congestive heart failure chronicity Coronary artery rupture Acute myocardial infarction, unspecified site, episode of care unspecified Ischemic cardiomyopathy Other specified forms of chronic ischemi c heart disease Atherosclerosis of chilkoot coronary arter y, angina presence unspecified, unspecified whether chilkoot or transplanted heart Essential hypertension, malignant Diabetes mellitus due to underlying cond ition with diabetic nephropathy, unspecified mcc insulin use status documented in this encounter Care Teams Animal Behaviorist Relationship Specialty Start Date End Date Lovely Vicente MD PCP - General 04/16/[address] [place] [address] documented as of this encounter
--- OUTSIDE RECORDS SUMMARY | 2022-02-06 13:35 | XMS_ITS | Encounter Summary ---
:1945 [place] [address] Care Team Providers Name Role Phone Lovely Vicente MD Primary Care Provider Encounter Details Date Type Department Care Team Description 08/05/2017 Notes Only Vascular Surgery at [facility] Eden Moss, STACIE [facility] [place] [address] [place] [address] VASCULAR SURGERY [phone] [place], [place] [address] (Wo rk) Social History Tobacco Use Types Packs/Day Years Used Date Former Smoker Cigarettes 3 5 Quit: 07/26/18 69 Smokeless Tobacco: Never Used Alcohol Use Standard Drinks/Week Comments No 0 (1 standard drink = 0.6 oz pure alcoho l) Sex Assigned at Date Recorded Not on file documented as of this encounter Progress Notes Eden Moss RN - 08/05/2017 1:15 PM EST Images from the original note were not included. [facility] called concerned that previously red areas were now with open blisters. Pt's was able to send pictures (above.) Pt and were encouraged to cleanse area, keep clean and cover with bacitracin and dry gauze and complete this 2x/day. Pt to be scheduled on Wednesday for TMA. documented in this encounter Plan of Treatment Upcoming Encounters Date Type Specialty Care Team Description 02/19/2022 Laboratory Appointment Lab 02/19/2022 Office Visit Cardiology Liz Poole PA [facility] er Cardiology Dept [place], [place] [address] (Wo rk) 03/12/2022 Office Visit Cardiology Vitaliy Nobles MD [facility] ER CARDIOLOGY [place], [place] [address] (Wo rk) documented as of this encounter Visit Diagnoses Not on filedocumented in this encounter Care Teams Hitcher Relationship Specialty Start Date End Date Lovely Vicente MD PCP - General 04/16/[address] [place] [address] documented as of this encounter
--- OUTSIDE RECORDS SUMMARY | 2022-02-06 13:35 | XMS_ITS | Encounter Summary ---
:1945 [place] [address] Care Team Providers Name Role Phone Lovely Vicente MD Primary Care Provider Encounter Details Date Type Department Care Team Description 08/04/2017 Orders Only Cardiac Surgery Makayla Wilson APRN [facility] [address] [facility] [place] [address] CARDIAC SURGERY [phone] [place], [place] [address] (Wo rk) Social History Tobacco [...] Cardiology Liz Poole PA [facility] er Cardiology Dept [place], [place] [address] (Wo rk) 03/12/2022 Office Visit Cardiology Vitaliy Nobles MD [facility] CARDIOLOGY [place], [place] [address] (Wo rk) documented as of this encounter Visit Diagnoses Not on filedocumented in this encounter Care Teams Dairy Processing Equipment Operator Relationship Specialty Start Date End Date Lovely Vicente MD PCP - General 04/16/[address] [place] [address] [address] [facility] [place] [address] documented as of this encounter
--- OUTSIDE RECORDS SUMMARY | 2022-02-06 13:35 | XMS_ITS | Encounter Summary ---
:1945 [place] [address] Care Team Providers Name Role Phone Lovely Vicente MD Primary Care Provider Reason for Visit Auth/Cert Specialty Diagnoses / Procedures Referred By Contact Refer red To Contact Diagnoses Critical lower limb ischemia CELLULITIS RT FOOT Procedures EMERGENCY Referral ID Status Reason Start Date Expiration Date Visits Requ ested Visits Authorized [id number] 1 1 Encounter Details Date Type Department Care Team Description 08/09/2017 Anesthesia Event Main Operating Room Daniele Lizama MD [facility] [place] [address] [facility] Rob Jones MD [facility] [place] [address] [place] [address] Anesthesia Record Procedure Summary Procedure Name Responsible Anesthesia Start Anesthesia Stop Anesthesiologist Time Time Rylee PUGA William E, MD 08/09/17 0802 08/09/17 0901 TRANSMETATARSAL (WRVU 12.71) (Right Toe) Events Date Time Event Comment 08/09/2017 0720 0802 AN Verify 0802 Start 0802 An Start Data 0802 Anesthesia Ready 0821 Procedure Start 0845 an stop data 0856 Recovery or ICU Handoff Patient care was transferred to the destination unit staff after review of the patient's medica l history, current anesthetic/surgi nusrat status and plan, according to the Provider Handoff Checklist. 0901 Stop Name Total fentaNYL 25 mcg heparin 25,000 units in dextrose 5% 500 mL infusion 1, 327.5 Units lactated Ringers infusion 1,000 mL 100 mL Agents Name O2 Air N2O Blood No blood administrations on file. Lines, Drains, and Airways Type Details Placement Removal Incision 07/07/17; 1423; chest; 07/07/17 1423 by 08/16/17 1047 by midline; 08/16/17; 1047 Shayy Fuller RN Kenan Dory vicente RN Incision 07/07/17; 1432; knee 07/07/17 1432 by 08/16/17 1 047 by (puncture woulds also Shayy Fuller RN Willi ams Dory made at groin and lower M, RN leg to facilitate removal of vein); transverse, laparoscopic punctures (specify); 08/16/17; 1047 PIV 07/27/17; 0046; basilic 07/27/17 0046 by 8 1047 by vein (medial side of Alexi Knowles, Dory arm), right; VAMSI Rios, RN kxyr-bpa-ivyutb catheter system; 20 gauge; 08/16/17; 1047 PIV 07/29/17; 1413; median 07/29/17 1413 by 08/16/17 1047 by cubital vein (antecubital Magdalene Hickey Williams, Dory fossa), left; VAMSI Wyatt, RN qmro-lyh-cbqlae catheter system; 20 gauge; 08/16/17; 1047 PIV 08/06/17; 1742; cephalic 08/06/17 1742 by 0920 by vein (lateral side of Taylor Laureano Danah y, Caitlyn C, arm), right; VAMSI BONNER uzix-mmj-avmqwu catheter system; 22 gauge, 1 in length; Eliseo LAUREANO RN VAS; distraction, intradermal injection, tolerated well, appears comfortable; 0; 08/16/17; 0920 Wound 08/07/17; 1335; knee; 08/07/17 1335 by 08/16/17 1047 by laceration; wound occured Barbara Albert iams, Dory BEEKEEPER; 08/16/17; 1047 VAMSI Alonzo, RN PIV 08/07/17; 1734; cephalic 08/07/17 1734 by 1047 by vein (lateral side of Kendrick, Carlos W, Willia ms, Dory arm), left; MARCIE Wyatt RN pcrv-zig-oanhfk catheter system; 22 gauge; distraction, intradermal injection, tolerated well; 08/16/17; 1047 Incision 08/09/17; 0820; foot; 08/09/17 0820 by 12/08/21 0000 by 12/08/21 Kristie Mansfield RN Heenehan, Lisa M, RN Urethral Catheter 08/09/17; 0920; Acute 08/09/17 0920 by 8 0935 by urinary retention; Naty Crowder RN Brown, Pa mela K, RN intermittent catheter; latex; 15; 1; none; urethral catheter removed; 08/09/17; 0935 documented in this encounter Social History Tobacco Use Types Packs/Day Years Used Date Former Smoker Cigarettes 3 5 Quit: 07/26/18 69 Smokeless Tobacco: Never Used Alcohol Use Standard Drinks/Week Comments No 0 (1 standard drink = 0.6 oz pure alcoho l) Sex Assigned at Date Recorded Not on file documented as of this encounter OR Notes Anesthesia Postprocedure Evaluation - Brody Santillan MD - 08/09/2017 9:01 AM EST [facility] [place] of Anesthesiology Post-procedure Note Patient: Don Fatima Procedure Summary Date Anesthesia Start Anesthesia Stop Room / Location 08/09/17 0802 0901 [facility] OR 14 / [facility] MAIN OR Procedure Diagnosis Surgeon Responsible Provider AMPUTATION, TRANSMETATARSAL (WRVU 12.71) (Right Toe) Ischemia of foot (right necrotic toes) Yonathan Smith MD Dewhirst, William E, MD All Anesthesia Providers: Anesthesiologist: Daniele Mckee MD Tow Truck Dispatcher: Brody Santillan MD Most Recent Vitals: 08/09/17 0857 BP: 122/70 Pulse: Resp: Temp: SpO2: 100% [facility] Level of Consciousness: Conscious but Sleepy Pain Management: Satisfactory Analgesia PONV: None Cardiovascular Status: Hemodynamically Stable Respiratory Status: Stable Respiratory Status Postoperative Fluid Status: Intravascular EUvolemia Possible Anesthetic Complications: NONE apparent at time of evaluation Final Primary Anesthesia Type: Regional (The anesthetic type performed was the same as planned.) Comments: Anesthesia Procedure Notes - Rob Jones MD - 08/09/2017 7:50 AM EST Associated Order(s): ANESTHESIA BLOCK Procedure: Anesthesia Block Block: Primary Anesthetic, saphenous nerve block/mid thigh, sciatic/ popliteal nerve block Start time: 08/09/2017 7:41 AM End time: 08/09/2017 7:59 AM Indication/Prep Position: supine Prep: mask, cap, sterile gloves, hand hygeine, patient draped, chlorhexidine Laterality: right Injection Information Ultrasound Guidance: in-plane and live Ultrasound guidance was used to identify the targeted neuronal structure. Ultrasound was also used to identify needle positon and to identify surrounding tissue (bone, muscle, and blood vessels) to prevent inadvertent intraneural or intravascular needle placement and injection. The spread of local anesthetic was confirmed with live ultrasound imaging. Injection technique:single-shot Needle Length: 10 cm Gauge: 21 Needle Type: T-prkcs-jkhws Medication injection made incrementally with aspirations. Nerve infiltration solution through a needle Ropivicaine 0.5% 30 mL Additional Notes Pre-procedure imaging: Attempted imaging for ankle block, but very poor visualization of neural structures. Good imaging ofpopliteal/saphenous block Procedural imaging: Good imaging of popliteal/saphenous block. Color doppler used to confirm no vascular structures in needle path. Aspirations all negative for heme. Injectate: Popliteal: 20 ml Saphenous: 10 ml Resident: Second Resident: Fellow: Attending Physician: ROB JONES ~~~~~~~~~~~~~~~~~~~~~~~~~~~~~~~~~~~~~~~~~~~~~~~~~~~~~~~~~~~~ Anesthesia Preprocedure Evaluation - Brody Santillan MD - 08/08/2017 8:06 PM EST Images from the original note were not included. Pre-Anesthesia Evaluation for: Don Fatima a 72 y.o. male. Procedure(s): AMPUTATION, TRANSMETATARSAL (WRVU 12.71) Patient Active Problem List Diagnosis ??? ASHD [...] Skin lesion of chest wall ??? Melanoma Past Medical History: Diagnosis Date ??? BPH (benign prostatic hyperplasia) 11/28/2013 ??? CAD (coronary artery disease) ??? Melanoma 2006 mid back ??? Peripheral vascular disease ??? Urinary retention 04/05/2013 Past Surgical History: Procedure Laterality Date ??? PRG SOMATOSENSORY TEST, ANY/ALL PER. NERVES, TRUNK OR HEAD 03/28/2013 FACIAL NERVE MONITORING, SETUP performed by Manny Mcknight MD at [facility] MAIN OR ??? PRO CABG, ARTERIAL, SINGLE N/A 07/07/2017 @CABG, USING ARTERIAL GRAFT;SINGLE ARTERIAL GRAFT (WRVU 33.75) performed by Yuan Retana MD at [facility] MAIN OR ??? PRO CABG, ARTERY-VEIN, TWO N/A 07/07/2017 @CABG, TWO VENOUS GRAFTS & ARTERIAL GRAFT (WRVU 7.93) performed by Yuan Retana MD at [facility] MAIN OR ??? PRO COLONOSCOPY, REMV LESN, SNARE 01/16/2014 COLONOSCOPY, POLYPECTOMY, REMOVAL LESION BY SNARE performed by Nohemi Jaimes MD at [facility] ENDOSCOPY ??? PRO ENDOSCOPY W/VIDEO-ASST VEIN HARVEST, CABG Right 07/07/2017 ENDOSCOPIC HARVEST VEIN(S) FOR CABG (WRVU 0.31) performed by Yuan Retana MD at [facility] MAIN OR ??? PRO THYROIDECTOMY 03/28/2013 THYROIDECTOMY, TOTAL OR COMPLETE performed by Manny Mcknight MD at [facility] MAIN OR Social History Substance Use Topics ??? Smoking status: Former Smoker Packs/day: 3.00 Years: 5.00 Types: Cigarettes Quit date: 07/26/1967 ??? Smokeless tobacco: Never Used ??? Alcohol use No History Drug Use No Allergies Allergen Reactions ??? Gabapentin Palpitations Dizziness, falls (on 100mg bid) Medications: MAR and/or home medications have been reviewed. Physical Exam: There were no vitals filed for this visit. There is no height or weight on file to calculate BMI. Airway Assessment: Mallampati: III TM distance: >3 FB Neck ROM: full Cardiovascular Assessment: Rhythm: regular Rate: normal Pulmonary Assessment: pulmonary exam normal Dental Assessment: (+) lower dentures and upper dentures Misc Assessment: IV access: Peripheral line Anesthesia Plan: ASA 4 regional, with a(n) intravenous induction Don Fatima is a 72 y.o. male former smoker with a hx significant for HTN, HLD, AF (on coumadin), dm2 (insulin dependent), COPD, PVD, MARIA VICTORIA on CPAP, GERD s/p Miguel, hyperthyroidism s/p total thyroidectomy, melanoma, STEMI and ischemic cardiomyopathy s/p CABGx3 (07/07/17), now admitted with embolic phenomenon,CLI, and cellulitis of R forefoot presenting for the following procedure(s) with Dr. Smith: Procedure(s): AMPUTATION, TRANSMETATARSAL (WRVU 12.71) Allergies: -- Gabapentin -- Palpitations -- Dizziness, falls (on 100mg bid) Anesthesia Hx: Santiago 2, G1v, EZ mask with oral airway NPO status: adequate Pt activity level prior to surgery/admission to hospital: METs > 4 EKG 08/06/17: Normal sinus rhythm Possible Left atrial enlargement Left axis deviation Inferior infarct (cited on or before 25-JAN-2013) Poor R wave progression Possible Anterior 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) T wave abnormality, consider lateral ischemia Consider right ventricular involvement in acute inferior infarct AVELINO 07/08/17: 1. Intraoperative AVELINO performed at the request [...] no evidence of aotic dissection was imaged Labs: 08/08/17 08/07/17 08/06/17 0451 0730 1232 WBC 10.5* 9.7* 11.8* HGB 9.3* 9.9* 9.9* HCT 30.3* 32.3* 32.0* PLATELET 252 312 326 08/08/17 08/07/17 08/06/17 0451 0730 1232 NA 136 140 138 K 4.5 4.5 4.6 CL 94* 99 97* CO2 25 29 25 BUN 35* 31* 29* CREATININE 1.57* 1.22 1.33 08/04/17 1255 AST 20 ALT 21 ALKPHOS 93 BILITOT 0.4 08/08/17 08/08/17 08/08/17 -- 08/07/17 08/04/17 1800 1027 0451 -- 0704 1255 PT -- -- 18.1* -- 17.3* 35.4* INR -- -- 1.5* -- 1.4* 3.5* PTT 97* 64* >160* < > 34 -- < > = values in this interval not displayed. Lab Results Component Value Date ABORH O Pos 07/27/2017 Plan is for MAC with popliteal-saphenous block, standard ASA monitors, active T&S, and adequate IV access. Brody Santillan MD PGY-2, [facility] Pager #[phone] Anesthesiology Staff (Dewhirst): Pre-op summary note as per Dr. Bear, above. I have reviewed the history (including allergies and medications), available records and diagnostic data, then formulatedand discussed the anesthetic plan with patient and Dr. Santillan. Anesthetic alternatives (where appropriate), procedures, risks (from common and minor to rare and and major) and consent for anesthesia were reviewed. Given severely compromised cardiac status and peripheral nature of planned surgery, heshould have primarily regional technique. The patient accepts that additional procedures and/or escalation of care may be necessary as dictated by the course of the procedure/anesthetic. All questions have been answered and the consent form signed. There are no pertinent advance directives. Plan: Regional (w/sedation prn);IV induction;routine monitors. Block by Block team pre-operatively. Region - Other Informed Consent: Anesthetic plan and risks discussed with patient. Use of blood products discussed with patient who consented to blood products. Plan discussed with resident and attending. PAT Staff Note documented in this encounter Plan of Treatment Upcoming Encounters Date Type Specialty Care Team Description 02/19/2022 Laboratory Appointment Lab 02/19/2022 Office Visit Cardiology Liz Poole PA [facility] er Cardiology Dept [place], [place] [address] (Wo rk) 03/12/2022 Office Visit Cardiology Vitaliy Nobles MD [facility] ER CARDIOLOGY [place], [place] [address] (Wo rk) documented as of this encounter Procedures Procedure Name Priority Date/Time Associated Diagnosis Comme nts ANESTHESIA BLOCK Routine 08/09/2017 7:56 AM EST Procedure Note - Kody Jones MD - 08/09/2017 7:50 AM ESTThis note is in progress. Formatting of this note migh t be different from the original. Procedure: Anesthesia Block Block: Primary Anesthetic, s aphenous nerve block/mid thigh, sciatic/ popliteal nerve block Start time: 08/09/2017 7:41 A M End time: 08/09/2017 7:59 AM Indication/Prep Position: supine Prep: mask, cap, sterile abdirizak ves, hand hygeine, patient draped, chlorhexidine Laterality: right Injection Information Ultrasound Guidance: in-plan e and live Ultrasound guidance was use d to identify the targeted neuronal structure. Ultrasound was also used to identify needle positon and to identify surrounding tissue (bone, muscle, and blood vessels) to prevent inadvertent intraneural or i ntravascular needle placement and injection. The spread of local anesthetic was confirmed with live ultrasound imaging. Injection technique:single-s hot Needle Length: 10 cm Gauge: 21 Needle Type: Z-ixeno-eaysm Medication injection made in crementally with aspirations. Nerve infiltration solution through a needle Ropivicaine 0.5% 30 mL Additional Notes Pre-procedure imaging: Attempted imaging for ankle block, but very poor visualization of neural structures. Good imaging of popliteal/saphenous block Procedural imaging: Good imaging of popliteal/sa phenous block. Color doppler used to confirm no vascular structures in needle path. Aspirations all negative for heme. Injectate: Popliteal: 20 ml Saphenous: 10 ml Resident: Second Resident: Fellow: Attending Physician: ROB JONES ~~~~~~~~~~~~~~~~~~~~~~~~~~~~ ~~~~~~~~~~~~~~~~~~~~~~~~~~~~~~~~ documented in this encounter Visit Diagnoses Not on filedocumented in this encounter Administered Medications Inactive Administered Medications - up to 3 most recent administrations Medication Order MAR Action Action Date Dose Rate Site fentaNYL 50 mcg/mL multi-dose Given 08/09/2017 8:24 AM EST 25 mc g injection PRN, Starting on 08/09/17 at 0824, Until Wed08/09/17 at 0901, Pain, Anesthesia Intra-op, Routine heparin 25,000 units in Rate/Dose Verify 08/09/2017 7:33 1,350 Unit s/hr 27 mL/hr dextrose 5% 500 mL PM EST infusion 0-5,000 Units/hr (0-100 mL/hr), Intravenous, CONTINUOUS, Starting on 08/07/17 at 0745, Until Tu08/10/17 at 1122, Begin infusion at 1,300 units [...] 10:01 AM EST 1,350 Units/hr 27 mL/hr lactated Ringers infusion 1,000 mL New Bag 08/09/2017 8:02 AM EST 1,000 mL, at 100 mL/hr, Intravenous, CONTINUOUS, Starting on Wed08/09/17 at 0700, Until Wed08/09/17 at 0955, Day of Surgery (Day of Procedure) documented in this encounter Care Teams Director Education Relationship Specialty Start Date End Date Lovely Vicente MD PCP - General 04/16/[address] [place] [address] documented as of this encounter
--- OUTSIDE RECORDS SUMMARY | 2022-02-06 13:35 | XMS_ITS | Encounter Summary ---
:1945 Author Organization [facility] [place] [address] Care Team Providers Name Role Phone Lovely Vicente MD Primary Care Provider Reason for Visit Auth/Cert Specialty Diagnoses / Procedures Referred By Contact Refer red To Contact Diagnoses Critical lower limb ischemia CELLULITIS RT FOOT Procedures EMERGENCY Referral ID Status Reason Start Date Expiration Date Visits Requ ested Visits Authorized [id number] 1 1 Encounter Details Date Type Department Care Team Description 08/04/2017 [place] [facility]ette Maxwell Incisional pain; [facility] A, COURT OPERATIONS CLERK Ischemic cardiomyopathy; [facility] ASCVD (arteriosclerotic card iovascular disease); [place], [place] Systolic heart failure, unspecified hear t failure chronicity [id number] CARDIOLOGY [phone] [place], [place] [address] Social History Tobacco Use Types [...] Sign Reading Time Taken Comments Blood Pressure 119/55 08/04/2017 2:41 PM EST Pulse 79 08/04/2017 2:41 PM EST Temperature - - Respiratory Rate - - Oxygen Saturation 99% 08/04/2017 2:41 PM EST room ai r Inhaled Oxygen Concentration - - Weight 86.6 kg (191 lb) 08/04/2017 2:41 PM EST Height 172.7 cm (5' 8) 08/04/2017 2:41 PM EST Body Mass Index 29.04 08/04/2017 2:41 PM EST documented in this encounter Progress Notes Danette Maxwell, COURT OPERATIONS CLERK - 08/04/2017 3:00 PM EST ID and CC: Don Fatima [...] painful and swollen right foot right d/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 He states that the pain is severe and made worse with rest; the pain is relieved by weight bearing and walking. He states that his foot has been painful and gradually swellingsince he was discharged home after his CABG. July 30, 2017 was seen by the pain clinic and started on Gabepentin ?? Since last ED visit on 07/29/2017: Seen by his PCP ?? Today: Seen by Dr. Ganesh Clement for painful right foot and toes and has a planned surgery on Wednesday, August 09, 2017 for amputation He has lower extremity edema He has been dizzy and fallen twice over the weekend Denies chest pain. No NTG use He has not been sleeping and therefore has not used his CPAP Leg pain is worse when resting and improved with movement, therefore he has been up at night Confusion started Wednesday (after initiating Gabapentin for pain) Denies SOB or difficulty breathing, but states due to his leg pain, he has not done anything strenuous Aslo states he has drainage from his sternal incision ?? Patient Active Problem List ?? [...] Your Medications These changes are accurate as of: 08/04/17 11:59 PM. If you have any questions, ask your nurse or doctor. New Medications Dose Details cefUROXime 250 mg Tab Commonly known as: CEFTIN Take 1 tablet by mouth 2 times daily for 10 days. Started by: Makayla Wilson APRN 250 mg Quantity: 20 tablet Refills: 0 Continued medications with new dosing Dose Details furosemide 20 mg Tab Commonly known as: LASIX Take 2 tablets by mouth daily. What changed: how much to take Changed by: Danette Maxwell APRN 40 mg Quantity: 60 tablet Refills: 3 insulin lispro Inpn Commonly known as: humaLOG KwikPen Inject 15-20 Units subcutaneously 3 times daily (with meals). What changed: how much to take 15-20 Units Quantity: 10 mL Refills: 1 LANTUS SOLOSTAR 100 unit/mL (3 mL) pen Inject 20 Units subcutaneously nightly. Generic drug: insulin glargine What changed: how much to take 20 Units Quantity: 15 mL Refills: 1 lisinopril 2.5 mg Tab Commonly known as: PRINIVIL;ZESTRIL Take 2.5 mg by mouth daily. What changed: Another medication with the same name was removed. Continue taking this medication, and follow the directions you see here. Changed by: Danette Maxwell APRN 2.5 mg Refills: 0 Continued medications, unchanged [...] by mouth daily. 2 g Refills: 0 fluocinolone acetonide 0.01 % Soln Commonly known as: SYNALAR Twice daily to less severe areas of psoriasis Quantity: 60 mL Refills: 2 HYDROmorphone 2 mg Tab Commonly known as: DILAUDID Take 0.5-1 tablets by mouth every 4 hours as needed for Pain. Take smallest dose needed as infrequently as possible 1-2 mg Quantity: 15 tablet Refills: 0 levothyroxine 175 mcg Tab Commonly known as: SYNTHROID Take 1 tablet by mouth daily. 175 mcg Quantity: 90 tablet Refills: 3 lidocaine 5 % Ptmd Commonly known as: LIDODERM Place one patch on right foot for 12 hours, then remove and do not apply another for 12 hours more. Quantity: 30 patch Refills: 0 LORazepam 0.5 mg Tab Commonly known as: ATIVAN Take 0.5 mg by mouth as needed. 0.5 mg Refills: 0 Magnesium Oxide 500 mg [...] 25 mg Quantity: 180 tablet Refills: 3 traMADol 50 mg Tab Commonly known as: ULTRAM Take 1 tablet by mouth every 6 hours as needed for Pain. 50 mg Quantity: 20 tablet Refills: 0 turmeric root extract 500 mg [...] daily. 2.5 mg Refills: 0 STOPPED Medications cephalexin 500 mg Cap Commonly known as: KEFLEX Stopped by: Makayla Wilson APRN gabapentin 100 mg Cap Commonly known as: NEURONTIN Stopped by: Danette Maxwell APRN ?? Allergies: [...] presyncope or syncope. ?? Physical Exam: BP 119/55 Pulse 79 Ht 172.7 cm (5' 8) Wt 86.6 kg (191 lb) SpO2 99% Comment: room air BMI 29.04 kg/m2 ?? General: Pacing in the exam room. Unable to sit due to right leg pain. HEENT: No JVD or carotid abnormalities Lungs: Clear to A+P Cor: RR, normal S1, S2. PMI not displaced. No murmur or gallop. Right groin mass with palpable femoral pulse. M/S: Sternal incision: persistent drainage to the distal pole. Sternal instability noted to the distal portion of his sternum. This drainage is minimal, and is accompanied by erythema extending out approx 3cm from the incision. Abd: soft, no L/S/K enlargement or bruits. Ecchymosis of lower abdomen Ext: Pulses preserved, 1-2+ edema. Red mottled right forefoot and toes (worst 1st, 2nd, 3rd toes), some ecchymosis underneath the toes. 1cm, closed blisters on the great and second toes of the right foot. Red, dry patch on the right posterior calf. Well healing surgical wound on right interior popliteal area. Warm to touch to toes, then toes are cool to touch ? Lab data: Recent Labs ? 07/27/17 0053 NA 137 K 5.1* CL 96* CO2 28 BUN 37* CREATININE 1.49 GLUCOSE 95 ?? Lab Results Component Value Date ?? WBC 15.0 (H) 07/27/2017 ?? RBC 3.59 (L) 07/27/2017 ?? HGB 10.3 (L) 07/27/2017 ?? HCT 32.6 (L) 07/27/2017 ?? MCV 90.8 07/27/2017 ?? MCH 28.7 07/27/2017 ?? MCHC 31.6 (L) 07/27/2017 ?? PLATELET 322 07/27/2017 ?? RDWCV 14.7 (H) 07/27/2017 ? Cardiac studies: 07/08/2017 Echocardiogram: SUMMARY: ? 1. Intraoperative AVELINO performed at the request of Dr. McCullouch for the diagnosis and evaluation of hemodynamics, [...] was imaged ?? Assessment: Mr. Fatima appears slightly volume up today. I will increase his Lasix to 40 mg daily. No spironolactone as his K+ is > 5.0 today and he has had an elevated potassium in the past. His greatest issue is his ongoing right leg pain. He has seen Dr. Clement today and is scheduled for surgery to amputate his affected toes. Also spoke to pain clinic and he will stop Gabapentin (see note) Aslo Cardiac surgery evaluated pt for incisional drainage. CXR done and antibiotics changed. 1. ASCVD Continue ASA, BB and statin Stable No chest pain ?? 2. Ischemic cardiomyopathy On BB and KIRSTIN-I No spironolactone as K+ > 5.0 ?? 3. Systolic heart failure proBNP is elevated from admission, LE edema is present as is abdominal distention Will increase Lasix to 40 mg daily ?? 4. HTN BP well controlled on current regime ?? 5. Hyperkalemia K+ > 5 Given information regarding low potassium diet 6. PAF On coumadin INR 3.5 today. Managed by PCP 7. 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 Fatima will undergo amputation of his toes on 08/09/2017 8. Confusion Started on Gabapentin for pain and became confused Spoke with pain clinic and will stop Gabepentin 9. Elevated WBC PCP did UA which is unremarkable, but culture is pending ? Source of infection as toes vs sternal incision Cardiac surgery will arrange for a chest CT to check for osteomyelitis when he in inpatient Started on Cefuroxime (was on Keflex) ? Plan: 1. A review of the active management and working diagnosis(es) was conducted. 2. The patient's medication list was updated and new Rxs given as needed. 3. Question were answered regarding: Confusion, incisional drainage, lower extremity edema, decreased LV function and treatment plan going forward 4. The following labs or other testing advised: CXR today, CT scan when inpatient 5. Heart Failure Clinic follow up scheduled for: 7-10 days after discharge Danette Maxwell APRN 08/03/2017 documented in this encounter Plan of Treatment Upcoming Encounters Date Type Specialty Care Team Description 02/19/2022 Laboratory Appointment Lab 02/19/2022 Office Visit Cardiology Liz Poole PA [facility] Cardiology Dept [place], [place] [address] (Wo rk) 03/12/2022 Office Visit Cardiology Vitaliy Nobles MD [facility] CARDIOLOGY [place], [place] [address] (Wo rk) documented as of this encounter Results XR Chest PA & Lateral (Generic) (08/04/2017 4:05 PM EST) Anatomical Region Laterality Modality Chest N/A Digital Radiography Specimen (Source) Anatomical Location Collection Method / Collectio n Time Received Time / Laterality Volume Impressions 08/04/2017 4:13 PM EST Mildly displaced sternal fracture between the second and third median sternotomy wires. Median sternotomy wires are intac t. I have personally reviewed the image(s) and the residents interpretation and agree with the findings, Daniele gutiérrez 08/04/2017 4:13 PM Narrative 08/04/2017 4:13 PM EST EXAMINATION: XR CHEST PA AND LATERAL (GENERIC) CLINICAL HISTORY: Checking sternal stabi lity/assess wires TECHNIQUE: PA and lateral radiographs of the chest. COMPARISON: Chest radiograph 07/11/2017. FINDINGS: Median sternotomy wires are intact. The lungs are clear. No pneumothorax. No pleural effusion. The cardiomediastinal silhouette, pulmonary vasculature, and moris are unchanged. There is a new mildly displaced sternal fracture between the second and third median sternotomy wires. Procedure Note Daniele Mary MD - 08/04/2017Formatt ing of this note might be different from the original. EXAMINATION: XR CHEST PA AND LATERAL (GE NERIC) CLINICAL HISTORY: Checking sternal stabi lity/assess wires TECHNIQUE: PA and lateral radiographs of the chest. COMPARISON: Chest radiograph 07/11/2017. FINDINGS: Median sternotomy wires are intact. The lungs are clear. No pneumothorax. No pleural effusion. The cardiomediastinal silhouette, pulmonary vasculature, and moris are unchanged. There is a new mildly displaced sternal fracture between the second and third median sternotomy wires. IMPRESSION Mildly displaced sternal fracture betwee n the second and third median sternotomy wires. Median sternotomy wires are intac t. I have personally reviewed the image(s) and the residents interpretation and agree with the findings, Daniele gutiérrez 08/04/2017 4:13 PM Danette Maxwell APRN IMG DX ORDERABLES documented in this encounter Visit Diagnoses Diagnosis Incisional pain Disturbance of skin sensation Ischemic cardiomyopathy Other specified forms of chronic ischemi c heart disease ASCVD (arteriosclerotic cardiovascular d isease) Unspecified cardiovascular disease Systolic heart failure, unspecified hear t failure chronicity Incisional pain Disturbance of skin sensation documented in this encounter Care Teams Health Safety Manager Relationship Specialty Start Date End Date Lovely Vicente MD PCP - General 04/16/[address] [place] [address] documented as of this encounter
--- OUTSIDE RECORDS SUMMARY | 2022-02-06 13:35 | XMS_ITS | Encounter Summary ---
:1945 Author Organization [facility] [place] [address] Care Team Providers Name Role Phone Lovely Vicente MD Primary Care Provider Encounter Details Date Type Department Care Team Description 08/03/2017 Telephone Pain Management at [facility] [place]eno, [place] [address] Social History Tobacco Use Types Packs/Day Years Used Date Former Smoker Cigarettes 3 5 Quit: 07/26/18 69 Smokeless Tobacco: Never Used Alcohol Use Standard Drinks/Week Comments No 0 (1 standard drink = 0.6 oz pure alcoho l) Sex Assigned at Date Recorded Not on file documented as of this encounter Miscellaneous Notes Telephone Encounter - Angeles Rodrigez, RN - 08/03/2017 11:55 AM EST Pain Management Center Preauthorization Request Patient: Don Fatima [id number] Fax received from [facility] requesting we obtain prior authorization for Lidocaine Patches prescribed by Barbra Soares APRN. RX insurance plan: [facility] [employer] insurance telephone: [phone] Patient ?? Diagnosis: right foot pain secondary to PVD and ischemia ?? Previous medications attempted: Tylenol, Tramadol, Dilaudid Authorization/Reference number: [id number], PBP Code 801 _x_ denied, provider and patient informed _x_ appeal initiated by provider, patient informed Angeles Rodrigez, RN documented in this encounter Plan of Treatment Upcoming Encounters Date Type Specialty Care Team Description 02/19/2022 Laboratory Appointment Lab 02/19/2022 Office Visit Cardiology [facility] Card[facility] Dept [place], [place] [address] (Wo rk) 03/12/2022 Office Visit Cardiology Vitaliy Nobles MD [facility] CARDIOLOGY [place], [place] [address] (Wo rk) documented as of this encounter Visit Diagnoses Not on filedocumented in this encounter Care Teams Insurance Follow Up Specialist Relationship Specialty Start Date End Date Lovely Vicente MD PCP - General 04/16/15 [facility] [address] [place] [address] documented as of this encounter
--- OUTSIDE RECORDS SUMMARY | 2022-02-06 13:35 | XMS_ITS | Encounter Summary ---
:1945 Author Organization [facility] [place] [address] Care Team Providers Name Role Phone Lovely Vicente MD Primary Care Provider Reason for Visit Auth/Cert Specialty Diagnoses / Procedures Referred By Contact Refer red To Contact Diagnoses Critical lower limb ischemia CELLULITIS RT FOOT Procedures EMERGENCY Referral ID Status Reason Start Date Expiration Date Visits Requ ested Visits Authorized [id number] 1 1 Encounter Details Date Type Department Care Team Description 08/04/2017 Hospital Encounter XRay at [facility] Danette Maxwell Incisional pain [address] [place] [address] Dr Gomes, NUT ROASTER [facility] [phone] CARDIOLOGY [place], [place] [address] Social History Tobacco Use Types [...] 02/19/2022 Office Visit Cardiology Liz Poole PA [facility] Cardiology Dept [place], [place] [address] (Wo rk) 03/12/2022 Office Visit Cardiology Vitaliy Nobles MD [facility] CARDIOLOGY [place], [place] [address] (Wo rk) documented as of this encounter Procedures Procedure Name Priority Date/Time Associated Diagnosis Comme nts XR CHEST PA AND Routine 08/04/2017 4:05 PM Incisional pain Res ults for this LATERAL EST procedure are i [...] Diagnosis Incisional pain Disturbance of skin sensation documented in this encounter Care Teams Tea Tree Farmer Relationship Specialty Start Date End Date Lovely Vicente MD PCP - General 04/16/[address] [place] [address] [address] [place] [address] documented as of this encounter
--- OUTSIDE RECORDS SUMMARY | 2022-02-06 13:35 | XMS_ITS | Encounter Summary ---
:1945 Author Organization [facility] [place] [address] Care Team Providers Name Role Phone Lovely Vicente MD Primary Care Provider Reason for Visit Reason Comments Foot Ulcer WOUND CHECK Auth/Cert Specialty Diagnoses / Procedures Referred By Contact Refer red To Contact Diagnoses Critical lower limb ischemia CELLULITIS RT FOOT Procedures EMERGENCY Referral ID Status Reason Start Date Expiration Date Visits Requ ested Visits Authorized [id number] 1 1 Encounter Details Date Type Department Care Team Description 08/06/2017 Office Visit [facility] lower limb [facility] ischemia [facility] [address] [place], [place] VASCULAR SURGERY [id number] [place] [address] [phone] Social History Tobacco Use Types Packs/Day Years Used Date Former Smoker Cigarettes 3 5 Quit: 07/26/18 69 Smokeless Tobacco: Never Used Alcohol Use Standard Drinks/Week Comments No 0 (1 standard drink = 0.6 oz pure alcoho l) Sex Assigned at Date Recorded Not on file documented as of this encounter Last Filed Vital Signs Vital Sign Reading Time Taken Comments Blood Pressure 106/59 08/06/2017 1:17 PM EST Pulse 72 08/06/2017 1:17 PM EST Temperature - - Respiratory Rate 18 08/06/2017 1:17 PM EST Oxygen Saturation - - Inhaled Oxygen Concentration - - Weight 86.2 kg (190 lb) 08/06/2017 1:17 PM EST Height 172.7 cm (5' 8) 08/06/2017 1:17 PM EST Body Mass Index 28.89 08/06/2017 1:17 PM EST documented in this encounter Patient Instructions Patient InstructionsGoYonathan allen MD - 08/06/2017 1:00 PM EST Call if any questions documented in this encounter Progress Notes Yonathan Smith MD - 08/06/2017 1:00 PM EST [facility] staff: 1. RIGHT leg CLI Interval Hx: I was asked by Dr. Clement to see this pleasant 72-year-old male with right leg critical ischemia. He underwent CABG recently, and this was complicated by a right groin pseudoaneurysm and embolic phenomenon to his right forefoot. His past medical history significant for right leg peripheral arterial disease, coronary artery disease, and hypertension. I reviewed his medications. He is a non-smoker nondrinker. He is accompanied today by his . His review of systems is negative for chest pain or shortness of breath. On exam, heart is regular lungs are clear. He has an easily palpable firmness in the right groin indicative as of his resolving hematoma. He has cellulitis and tissue loss over his forefoot. CTA shows tibial disease on the right with good inflow, but this was from several days ago. Assessment: Cellulitis and forefoot critical limb ischemia in this 72-year-old male. We will admit him for IV hydration and antibiotics. He will need evaluation of inflow, debridement, and revascularization as is allowable. Risks and benefits were discussed, including potential for limb amputation. He and his agreed to proceed in this manner. Thank you for sending him in consultation. documented in this encounter Plan of Treatment Upcoming Encounters Date Type Specialty Care Team Description 02/19/2022 Laboratory Appointment Lab 02/19/2022 Office Visit Cardiology Liz Poole PA [facility] Cardiology Dept [place], [place] [address] (Wo rk) 03/12/2022 Office Visit Cardiology Vitaliy Nobles MD [facility] CARDIOLOGY [place], [place] [address] (Wo rk) documented as of this encounter Visit Diagnoses Diagnosis Critical lower limb ischemia Unspecified circulatory system disorder documented in this encounter Care Teams Crystal Lapper Relationship Specialty Start Date End Date Lovely Vicente MD PCP - General 04/16/15 [facility] [address] [place] [address] documented as of this encounter
--- OUTSIDE RECORDS SUMMARY | 2022-02-06 13:36 | XMS_ITS | Encounter Summary ---
:1945 [place] [address] Care Team Providers Name Role Phone Lovely Vicente MD Primary Care Provider Reason for Visit Reason Onset Date Comments Questions 07/16/2017 fluid retention Encounter Details Date Type Department Care Team Description 07/16/2017 Telephone Cardiology at [facility] Martha Comer, Questions ([facility] RN retention ) [place] [address] Social History Tobacco Use Types Packs/Day Years Used Date Former Smoker Cigarettes 3 5 Quit: 07/26/18 69 Smokeless Tobacco: Never Used Alcohol Use Standard Drinks/Week Comments No 0 (1 standard drink = 0.6 oz pure alcoho l) Sex Assigned at Date Recorded Not on file documented as of this encounter Miscellaneous Notes Telephone Encounter - Martha Comer RN - 07/16/2017 9:52 AM EST Kisha, calling to report that the pt continues to have BLE edema. The visiting nurse called hisPCP and has been instructed to increase his lasix to 80 mg po daily (she is giving him 40 mg in am and 40 mg at noon). They just got a new scale yesterday and have yesterday's weight 191 lbs (old scale) & today's weight 192 lbs (new scale). His discharge weight was 198 lbs on 06/14/17. He is taking his medications as directed. The discharge plan was for him to take lasix 40 mg po daily for 4 days, then go to 20 mg daily. He is now taking 80 mg daily, as written above. reports that he is otherwise doing well. No difficulty breathing. Given HF instructions: 2 gm sodium diet Elevate swollen legs as much as possible. 1.5-2 liters of fluid daily call if his weight goes up 2 lbs in a day, 5 lbs in a week or if he notices any swelling in his lower extremities and/or abdomen. Given the direct number to the HF team ([phone]). She is aware of his appt with PSYCHOLOGICAL OPERATIONS Hans on 07/21/17 and the need for labs prior to that visit. verbalized good understanding of the current POC. documented in this encounter Plan of Treatment Upcoming Encounters Date Type Specialty Care Team Description 02/19/2022 Laboratory Appointment Lab 02/19/2022 Office Visit Cardiology Liz Poole PA [facility] [address] Cardiology Dept [place], [place] [address] (Wo rk) 03/12/2022 Office Visit Cardiology Vitaliy Nobles MD [facility] CARDIOLOGY [place], [place] [address] (Wo rk) documented as of this encounter Visit Diagnoses Not on filedocumented in this encounter Care Teams Roundhouse Supervisor Relationship Specialty Start Date End Date Lovely Vicente MD PCP - General 04/16/[address] [place] [address] [address] [place] [address] documented as of this encounter
--- OUTSIDE RECORDS SUMMARY | 2022-02-06 13:36 | XMS_ITS | Encounter Summary ---
:1945 [place] [address] Care Team Providers Name Role Phone Lovely Vicente MD Primary Care Provider Reason for Visit Reason Comments Hospital Transfer cold foot post CABG Auth/Cert Specialty Diagnoses / Procedures Referred By Contact Refer red To Contact Diagnoses Critical lower limb ischemia Procedures NAYE IPI Referral ID Status Reason Start Date Expiration Date Visits Requ ested Visits Authorized [id number] 1 1 Encounter Details Date Type Department Care Team Description 07/20/2017 Hospital Encounter 4 Herminia Ibarra MD [facility] [place] [address] Critical lower limb [facility] Arik Clement MD [facility] [place] [address] [place] [address] Social History Tobacco Use Types Packs/Day Years Used Date Former Smoker Cigarettes 3 5 Quit: 07/26/18 69 Smokeless Tobacco: Never Used Alcohol Use Standard Drinks/Week Comments No 0 (1 standard drink = 0.6 oz pure alcoho l) Sex Assigned at Date Recorded Not on file documented as of this encounter Last Filed Vital Signs Vital Sign Reading Time Taken Comments Blood Pressure 145/76 07/20/2017 11:07 AM EST Pulse 82 07/20/2017 11:07 AM EST Temperature 36.4 ??C (97.5 ??F) 07/20/2017 11:07 AM EST Respiratory Rate 18 07/20/2017 11:07 AM EST Oxygen Saturation 98% 07/20/2017 11:07 AM EST Inhaled Oxygen Concentration - - Weight 84.8 kg (186 lb 15.2 oz) 07/20/2017 3:40 AM EST Height 172.7 cm (5' 8) 07/20/2017 12:20 AM EST Body Mass Index 28.43 07/20/2017 12:20 AM EST documented in this encounter Discharge Summaries Manny Lowery MD - 07/20/2017 10:54 AM EST Inpatient - Discharge Summary Patient Name: Gregory Fatima Patient Age: 72 y.o. Birthdate: 1945 Admit date: 07/20/2017 Discharge date and time: 07/20/2017 Attending Physician: Arik Clement MD Discharge Diagnoses (Hospital Problems) and Secondary [...] ??? STEMI (ST elevation myocardial infarction) ??? BPH (benign prostatic hyperplasia) ??? Atypical nevus of abdominal wall ??? Urinary retention ??? MARIA VICTORIA (obstructive sleep apnea) on CPAP ??? Goiter ??? Seborrheic psoriasis- scalp and ingtergluteal area ??? Skin lesion of chest wall ??? Melanoma Operations/Major Procedures: none this admission History of Presentation: 72 y.o. male with a PMH of hypertension, hyperlipidemia, DM 2, MARIA VICTORIA on CPAP who was admitted 06/25/17 with anterior STEMI who underwent a three-vessel CABG on 07/07. His hospitalstay was complicated by A. fib with RVR and he was discharged on Coumadin. He states that after he went home he started noticing some swelling in bilateral feet. The swelling increased after a few daysand he started having pain in his toes. He states he has neuropathy in his legs at baseline but thiswas different. He also started noticing some paleness in his right foot. His notes that one night he lost 9 pounds and his swelling in his left foot decreased significantly. However there still seem to be some swelling in his right foot along with associated tenderness. He presented to an outsidehospital because of this increasing discomfort. Once at the outside hospital they started him on a heparin drip and since then he actually states that his pain has completely resolved for the first time since he was discharged. He denies having any shortness of breath, chest pain, fevers, chills, or any other symptoms. ?? Hospital Course: Pt admitted and imaging obtained, resulted below. Pt found to have mottled RLE toes, thought to be embolic however not requiring intervention at this time. Pt remains motor and sensoryintact to BLE. Pt's right fem PSA found to be without active flow, also not warranting intervention.Decision made that pt could d/c to home. Pt's INR found to be subtherapeutic on d/c so started on a lovenox bridge back to home dose coumadin. Pt remains at baseline level of independent function with good PO intake, adequate output and ambulation with minimal assist. Pt is medically cleared for d/c to home. Important Studies and Lab Data: Labs: [facility] Lab Results Component Value Date INR 1.5 (H) 07/20/2017 PT 17.7 (H) 07/20/2017 PTT 79 (H) 07/20/2017 Studies: 07/20/2017 JULIAN Findings: Right ?Pressure (mm Hg) ?? JULIAN ??Waveform ? TBI ?? Brachial Artery ?140 ? Common Femoral Artery ?Triphasic ? Pop Fossa ?Triphasic ? Dorsalis Pedis (Ankle) Artery ?167 ? 1.19 ??Bi-Triphasic ? Posterior Tibial (Ankle) Artery ??184 ? 1.31 ??Bi-Triphasic ? Great Toe ?0 ?0.00 ?? Left ? Pressure (mm Hg) ?? JULIAN ??Waveform ?TBI ?? Common Femoral Artery ?Triphasic ? Pop Fossa ?Triphasic ? Dorsalis Pedis (Ankle) Artery ?177 ? 1.26 ??Triphasic ? Posterior Tibial (Ankle) Artery ??157 ? 1.12 ??Triphasic ? Great Toe ?58 ? 0.41?? Interpretation: RIGHT: No significant lower extremity arterial occlusive disease identified at rest to the distal calf. Severe toe/brachial index, absent PPG signal on the great toe. LEFT: No significant lower extremity arterial occlusive disease identified at rest to the distal calf. Normal ankle/brachial pressure ratios and ankle Doppler waveforms. Toe/brachial index substantially lower than ankle/brachial index indicates presence of moderate arterial occlusive disease in the foot. 07/20/2017 Duplex Findings: Right ? PSV (cm/s) ??EDV ?? Common Femoral Artery, Mid ? 115 ?0 ?? Superficial Femoral Artery, Proximal ?78 ?7 ?? Interpretation: Patent right common femoral artery and superficial femoral artery with normal triphasic Doppler waveforms. A thrombosed pseudoaneurysm was visualized in the right groin measuring approximately 3.0 x 2.3 x 4.7 cm. There is no active flow within the PSA. 07/20/2017 CT Scan IMPRESSION 1. RIGHT common femoral artery small pseudoaneurysm with 3 cm overlying hematoma. 2. Predominantly occluded bilateral anterior tibial arteries, with diminished flow within the RIGHT dorsalis pedis. 3. Predominantly nonopacified bilateral posterior tibial arteries. 4. Heterogeneous splenic enhancement may be sequela phase of contrast, although there are large wedge-shaped areas of nonopacification; splenic infarcts not excluded. Discharge Conditions/Prognosis: Good Discharge to: Home Discharge Medications: Your Medications New Medications Dose Details enoxaparin 100 mg/mL Syrg Commonly known as: LOVENOX Inject 0.85 mLs subcutaneously 2 times daily. 1 mg/kg/dose Quantity: 10 Syringe Refills: 2 HYDROmorphone 2 mg Tab Commonly known as: DILAUDID Take 1 tablet by mouth every 4 hours as needed for Pain. 2 mg Quantity: 40 tablet Refills: 0 warfarin 2.5 mg Tab Commonly known as: COUMADIN Take 1 tablet by mouth daily. 2.5 mg Refills: 0 Continued medications with new dosing Dose Details furosemide 20 mg Tab Commonly known as: LASIX Take 1 tablet by mouth daily. What changed: Another medication with the same name was removed. Continue taking this medication, and follow the directions you see here. 20 mg Quantity: 30 tablet Refills: 0 LANTUS SOLOSTAR 100 unit/mL (3 mL) pen Inject 20 Units subcutaneously nightly. Generic drug: insulin glargine What changed: how much to take 20 Units Quantity: 15 mL Refills: 1 Continued medications, unchanged Dose Details ACCU-CHEK TERA [...] insulin needles (disposable) 1 each Refills: 0 fish oil-omega-3 fatty acids 1,000 mg Cap Take 2 g by mouth daily. 2 g Refills: 0 fluocinolone acetonide 0.01 % Soln Commonly known as: SYNALAR Twice daily to less severe areas of psoriasis Quantity: 60 mL Refills: 2 insulin lispro Inpn Commonly known as: humaLOG KwikPen Inject 15-20 Units subcutaneously 3 times daily (with meals). 15-20 Units Quantity: 10 mL Refills: 1 levothyroxine 175 mcg Tab Commonly known as: SYNTHROID Take 1 tablet by mouth daily. 175 mcg Quantity: 90 tablet Refills: 3 lisinopril 20 mg Tab Commonly known as: PRINIVIL;ZESTRIL Take 0.5 tablets by mouth daily. 10 mg Quantity: 90 tablet Refills: 3 Magnesium 200 mg Tab Take 500 mg by mouth daily. 500 mg Refills: 0 metFORMIN 850 mg Tab Commonly known as: GLUCOPHAGE Take 1 tablet by mouth 2 times daily (with meals). 850 mg Quantity: 60 tablet Refills: 12 meTOPROLOL tartrate 25 mg Tab Commonly known as: LOPRESSOR Take 1 tablet by mouth 2 times daily. 25 mg Quantity: 180 tablet Refills: 3 potassium chloride 10 mEq Tbsr Commonly known as: K-DUR/KLOR-CON Take 1 tablet by mouth daily. 10 mEq Quantity: 30 tablet Refills: 0 turmeric root extract 500 mg Cap Take 500 mg by mouth. 500 mg Refills: 0 vitamin C 500 mg Tab Take 500 mg by mouth daily. Winter months only Generic drug: ascorbic acid (vitamin C) 500 mg Refills: 0 STOPPED Medications cephalexin 500 mg Cap Commonly known as: KEFLEX Updated Allergies/ADRs: No Known Allergies Follow-up Recommendations for Providers: Pt is on a lovenox bridge to therapeutic coumadin. Goal INR2-3, INR@ d/c 1.5. Lovenox can be d/c'd when INR>2, coumadin should continue and should be titrated to achieve/maintain goal INR. Instructions Given to Patient at Discharge: Patient Instructions Patient Instructions You were admitted on 07/20/2017 for management of your right femoral pseudoaneurysm and to evaluate the blood flow to your leg. All of this went very well and you did not require any interventions. will want you to be seen in approximately 1-2 weeks with a repeat ultrasound (duplex) to re-evaluate your femoral artery. All of this will be ordered and sent to you in the mail. If for some reason you don't receive this within a week or so please call our office as your followup is very important. Anticoagulation: on lovenox bridge to therapeutic coumadin for AFib. Goal INR 2- 3. At discharge INR=1.5. The lovenox injections can stop when INR >2, coumadin will continue indefinitely. Call your doctor if: Any fever, any drainage, redness or separation of your incision, increased painor change in temperature of your leg Activity level: up as tolerated but take it easy for 1-2 weeks Diet: resume your previous regular diet Driving: none right now with pain medication use Shower/Bath: showering is fine For any problems or questions please call [phone] ZELDA Smith, barkeeper Nurse Clinician For issues on weeknights after 5pm and weekends please call [phone] and ask for the Vascular Fellow software applications engineer. General Instructions None Future Appointments and Orders Future Appointments Provider Department Dept Phone 08/04/2017 1:00 PM Daniele Mooney [facility] [place] [phone] 08/04/2017 2:15 PM Arik Clement MD [facility] Surgery at [place] [phone] 09/07/2017 3:00 PM MAYRA CHACON [facility] [phone] 09/07/2017 4:00 PM Luz Prescott MD Endocrinology at [place] [phone] Future Orders Complete By Expires Arterial Duplex Leg, Unil [VAS32 Custom] 07/27/2017 (Approximate) 01/26/2018 Process Instructions: There is no in-house vascular record label intern available on weeknights (5pm-8am), weekends, or holidays. IF THIS IS A REQUEST FOR AN EMERGENT STUDY DURING THOSE HOURS, please have the senior provider responsible for the patient page the Vascular Surgery Fellow/Senior Resident software applications engineer to discuss options. Scheduling Instructions: Questions: Indication for study/signs & symptoms: Right femoral PSA s/p cardiac cath Question to be answered: bloodflow to PSA Laterality: Right Is there a RIGHT LOWER EXTREMITY graft?: No Lower limb right segments: Common Femoral Is there a stent?: No At which location will this be performed?: [place] Referral to Home Health - at DISCHARGE [[id number] CPT(R)] As directed Process Instructions: Scheduling Instructions: Comments: DOCUMENTATION FOR VNA SERVICES (INCLUDING THOSE PATIENTS WITH MEDICARE COVERAGE REQUIRING HOME VNA SERVICES AND/OR HOSPICE SERVICES) PATIENT'S LOCATION: Gregory Fatima [address] [place] [address] [place] [id number] (home) Cell: Telephone Information: Nick Setter's Name: self In discussion with the attending physician, it is certified that this patient is under their care and that they, or a Nurse Practitioner,Clinical Nurse specialist or Physician Finish Mill Operator who is working directly with them, had a face to face encounter that meets the physician face to face encounter requirements with this patient on 07/20/2017 The encounter with the patient was in whole, or in part, for the following medical condition, which is the primary reason for home health care services: s/p cardiac cath and CABG with right femoral psuedoaneurysm. In discussion with the provider, it is certified that, based on their findings, the following services are medically necessary for home health services. To provide the following care/treatments with the clinical findings supporting the need for servicesas follows: HOME CARE ORDERS: RN ORDERS: Assess right groin perc incision with lump present beneath skin r/t psuedoaneurysm, assess for changes. Vital signs, cardiopulmonary status, nutrition, hydration, elimination, meds effectiveness and management; reinforce education re health issues. Please draw 2-3xweek INR with results sent to PCP as listed below. First INR draw 07/22 please. Pt is on a lovenox bridge, please assist and educate. Pt's toes on right foot suffered embolism, please assess right foot pulses, color, temperature and function. (Pt's toes slightly purple at time of d/c, foot warm with pulses present at PT, weaker at DPwith doppler.) PT ORDERS: Continue rehab for endurance, gait stability and strength with mobility and transfers. Home safety evaluation. Home exercise program if appropriate. OT: assess and continue rehab for managing ADL's. HOME HEALTH CARE AGENCY: [facility] ([facility] for [place] [employer]-is in [place], [place]) PHONE: [phone] FAX: [phone] Start of care: 24- 48 hours FOR MEDICARE ONLY: (please delete this section if not Medicare) In discussion with the attending physician, it is certified that the clinical findings support that this patient is homebound because absences from home require considerable and taxing effort due to: s/p cardiac cath and CABG with right femoral psuedoaneurysm. Please note that any additional orders needs or changes will need to be obtained from this patient'sPCP: Lovely Vicente MD [address] [facility] [place] / [place] [address] All VNA agencies which cover the area of patient's residence have been reviewed, either verbally or in writing, and patient/family have chosen the home health care agency noted Questions: Agency name and contact information: [facility] Patient location post discharge: Home What services are requested: Registered Nurse Physical Therapy Occupational Therapy Start date: Responsible MD post discharge contact info: PCP Discharge References/Attachments: Discharge References/Attachments None Electronically Signed By: Manny Lowery MD 07/20/2017 documented in this encounter Discharge Instructions Patient InstructionsEden Moss RN - 07/20/2017 10:04 AM EST Patient Instructions You were admitted on 07/20/2017 for management of your right femoral pseudoaneurysm and to evaluate the blood flow to your leg. All of this went very well and you did not require any interventions. will want you to be seen in approximately 1-2 weeks with a repeat ultrasound (duplex) to re-evaluate your femoral artery. All of this will be ordered and sent to you in the mail. If for some reason you don't receive this within a week or so please call our office as your followup is very important. Anticoagulation: on lovenox bridge to therapeutic coumadin for AFib. Goal INR 2- 3. At discharge INR=1.5. The lovenox injections can stop when INR >2, coumadin will continue indefinitely. Call your doctor if: Any fever, any drainage, redness or separation of your incision, increased painor change in temperature of your leg Activity level: up as tolerated but take it easy for 1-2 weeks Diet: resume your previous regular diet Driving: none right now with pain medication use Shower/Bath: showering is fine For any problems or questions please call [phone] ZELDA Smith, barkeeper Nurse Clinician For issues on weeknights after 5pm and weekends please call [phone] and ask for the Vascular Fellow software applications engineer. documented in this encounter Medications at Time [...] gauge x 4 times daily. 10/08 Needle clobetasol (TEMOVATE) Apply 1 Application 1 06/2009/06/2019 0.05 % Solution topically 2 times daily. enoxaparin (LOVENOX) Inject 0.85 mLs 10 Syringe 2 07/20/2017 07/30/2017 100 mg/mL Syringe subcutaneously 2 times daily. warfarin (COUMADIN) Take 1 tablet by mouth 0 06/2612/12/2021 2.5 mg Tablet daily. HYDROmorphone Take 1 tablet by mouth 40 tablet 0 07/20/2017 07/27/2017 (DILAUDID) 2 mg Tablet every 4 hours as needed for Pain. LANTUS SOLOSTAR pen Inject 20 Units 15 [...] (LOPRESSOR) 25 mg 2 times daily. Tablet potassium chloride Take 1 tablet by mouth 30 tablet 0 07/1507/27/2017 (K-DUR/KLOR-CON) 10 daily. mEq Tablet Sustained Release insulin lispro Inject 15-20 Units 10 mL [...] solutionIndications: Psoriasis documented as of this encounter Progress Notes Naty Pulliam RN - 07/20/2017 2:53 PM EST The patient/sales representative womens health has been provided a list of Home Health Agencies/DME vendors which serve their preferred geographic area. A letter describing our affiliations was reviewed with them and theywere educated about their right to choose where referrals are placed. Patient requests referral to [facility]. PHONE: [phone] FAX: [phone]. Expected date of discharge: 07/20/2017 . Referral routed to the Armed Security Professional for matching with agency/vendor and to provide any required information. Naty Pulliam RN - 07/20/2017 11:37 AM EST The patient/sales representative womens health has been provided a list of Home Health Agencies/DME vendors which serve their preferred geographic area. A letter describing our affiliations was reviewed with them and theywere educated about their right to choose where referrals are placed. Patient requests referral to [facility] ([facility] Intake for [place] [facility]- is in [facility] [place] PHONE: [phone] FAX: [phone]. Expected date of discharge: 07/20/2017 . Referral routed to the Armed Security Professional for matching with agency/vendor and to provide any required information. Katina Pulliam RNbarrel raiser helper Janneth Lee MD - 07/20/2017 7:29 AM EST Vascular Surgery Progress Note Patient ID Gregory Fatima is a 72 y.o. male with a PMH of hypertension, hyperlipidemia, DM 2, MARIA VICTORIA on CPAP who was admitted 06/25/17 with anterior STEMI who underwent a three-vessel CABG on 07/07 now with right toe ischemia and pulsatile right groin mass. CTA aorta B/L this morning demonstrated right common femoral artery pseudoaneurysm Operations This Hospitalization To be determined and discussed with Vascular Surgery, likely OR today regarding fixation of pseudoaneurysm Subjective - Pain well controlled this morning - No acute events overnight - denies nausea, vomiting, chest pain or shortness of breath - NPO now pending final surgical plan today Objective Temp: [36.6 ??C (97.9 ??F)] Heart Rate: [74-80] Resp: [14-16] BP: (131-138)/(59-70) SpO2: [95 %-97 %] Heart Rate from SPO2: [77 bpm-82 bpm] Body mass index is 28.43 kg/(m^2). Intake/Output Summary (Last 24 hours) at 07/20/17 0731 Last data filed at 07/20/17 0500 Gross per 24 hour Intake 0 ml Output 0 ml Net 0 ml Physical Exam General: alert, cooperative, NAD HEENT: normocephalic, atraumatic Neck: trachea midline Heart: regular rate Pulmonary: non-labored breathing Abdomen: soft, non tender, non distended. Neuro: no focal deficits Extremities: RLE: pulsatile groin mass ~ golf ball size, lower groin ecchymosis and area concerning for hematoma,minimal edema. Skin warm and pink. No tissue loss. Brisk capillary refill, toes are non tender to touch, pale and cool compares to rest of leg and other extremities 2+ femoral pulse, dopplarable DP (monophasic) and PT (triphasic) LLE: No edema. Skin warm and pink. No tissue loss. Brisk capillary refill, palpable femoral 2+, DP 2+ and dopplarable PT, toes warm Labs Last 3 wbc, hgb, hct plt Recent Labs 07/10/17 0428 07/09/17 0230 07/08/17 0400 WBC 12.2* 12.5* 18.8* HGB 9.8* 10.1* 11.9* HCT 30.0* 30.3* 35.9* PLATELET 135* 127* 232 Last 3 Lytes Recent Labs 07/20/1722407/14/1744507/13/1742507/12/17 0411 NA 134* -- 143 145 K Not Perf 4.3 3.7 Not Perf 3.8 CL 92* -- 104 106 CO2 29 -- 26 Not Perf BUN 35* -- 25* 31* CREATININE 1.51* -- 1.19 1.23 Last 3 LFTs No results for input(s): AST, ALT, ALKPHOS, BILITOT, BILIDIR in the last 7068 hours. Last Ca, Mg, Phos Recent Labs 07/20/17224 CALCIUM 8.6 Last 3 Coags Recent Labs 07/20/1722407/14/17445 PT 17.7* 26.4* INR 1.5* 2.4* PTT 36* -- Microbiology none New Studies CTA - Aorta IMPRESSION 1. RIGHT common femoral artery small pseudoaneurysm with 3 cm overlying hematoma. 2. Predominantly occluded bilateral anterior tibial arteries, with diminished flow within the RIGHT dorsalis pedis. 3. Predominantly nonopacified bilateral posterior tibial arteries. 4. Heterogeneous splenic enhancement may be sequela phase of contrast, although there are large wedge-shaped areas of nonopacification; splenic infarcts not excluded. Assessment & Plan Gregory Fatima is a 72 y.o. male who was admitted 06/25/17 with anterior STEMI who underwent a three-vessel CABG on 07/07 now with right common femoral artery pseudoaneurysm and occluded anterior tibial artery with decreased flow to right DP. Is NPO, pending further operative discussion with vascular surgery. Neuro: - Pain control: dilauded PO PRN CV: hx Afib & recent CABG - Cont amiodarone, statin, metoprolol Pulm: - NTD FEN/GI: - NPO Renal: - Cr 1.5 this AM (baseline 1.19), 3L NS given early this AM prior to CTA Heme: on warfarin 2.5mg for afib at home - Heparin gtt; HOLD warfarin - H/H: 9.8/30 - INR: 1.5 Endo: hx of Diabetes and hypothyroid - Cont insulin glargine and SSI - Cont levothyroxine Dispo: OR today Code: Full Janneth Lee MD 7:31 AM 07/20/17 Ines Cantu RN - 07/20/2017 6:19 AM EST Patient arrived to floor at 0320 via stretcher, able to stand and pivot with walker to bed, 7/10 pain to right foot, ble +3 edema, pale and cold feet, pulses by doppler, faint. For pain given 2 mg PO Dilaudid, with good effect. Heparin gtt running per protocol next PTT due at 1030. Went to CT Scan At 630 am. Family at bedside, continue with plan of care documented in this encounter H&P Notes Chris Valadez MD - 07/20/2017 12:24 AM EST Vascular Surgery History and Physical HPI: Gregory Fatima is a 72 y.o. male with a PMH of hypertension, hyperlipidemia, DM 2, MARIA VICTORIA on CPAPwho was admitted 06/25/17 with anterior STEMI who underwent a three-vessel CABG on 07/07. His hospital stay was comp gated by Kade pozo with RVR and he was discharged on Coumadin. He states that after he went home he started noticing some swelling in bilateral feet. The swelling increased after a few daysand he started having pain in his toes. He states he has neuropathy in his legs at baseline but thiswas different. He also started noticing some paleness in his right foot. His notes that one night he lost 9 pounds and his swelling in his left foot decreased significantly. However there still seem to be some swelling in his right foot along with associated tenderness. He presented to an outsidehospital because of this increasing discomfort. Once at the outside hospital they started him on a heparin drip and since then he actually states that his pain has completely resolved for the first time since he was discharged. He denies having any shortness of breath, chest pain, fevers, chills, or any other symptoms. Review of Systems: General: Denies fevers, chills, [...] Denies urinary urgency, frequency, dysuria, hematuria Musc: Denies joint pains or stiffness, denies extremity swelling Endo: Denies heat or cold in tolerance Psych: Denies mood changes or feelings of depression or anxiety Past Medical History: Diagnosis Date ??? BPH (benign prostatic hyperplasia) 11/28/2013 ??? Melanoma 2006 mid back ??? Urinary retention 04/05/2013 Hypertension Hyperlipidemia Diabetes type 2 MARIA VICTORIA on CPAP Past Surgical History: Procedure Laterality Date ??? PRG SOMATOSENSORY TEST, ANY/ALL PER. NERVES, TRUNK OR HEAD 03/28/2013 FACIAL NERVE MONITORING, SETUP performed by Manny Mcknight MD at [facility] MAIN OR ??? PRO CABG, ARTERIAL, SINGLE N/A 07/07/2017 @CABG, USING ARTERIAL GRAFT;SINGLE ARTERIAL GRAFT (WRVU 33.75) performed by Yuan Retana MD at [facility] MAIN OR ??? PRO CABG, ARTERY-VEIN, TWO N/A 07/07/2017 @CABG, TWO VENOUS GRAFTS & ARTERIAL GRAFT (WRVU 7.93) performed by Yuan Retana MD at [facility] MAIN OR ??? PRO COLONOSCOPY, REMV LESN, SNARE 01/16/2014 COLONOSCOPY, POLYPECTOMY, REMOVAL LESION BY SNARE performed by Nohemi Jaimes MD at [facility] ENDOSCOPY ??? PRO ENDOSCOPY W/VIDEO-ASST VEIN HARVEST, CABG Right 07/07/2017 ENDOSCOPIC HARVEST VEIN(S) FOR CABG (WRVU 0.31) performed by Yuan Retana MD at [facility] MAIN OR ??? PRO THYROIDECTOMY 03/28/2013 THYROIDECTOMY, TOTAL OR COMPLETE performed by Manny Mcknight MD at [facility] MAIN OR Functional Status/Social Hx: Social History Social History ??? Marital status: Spouse name: N/A ??? Number of children: N/A ??? Years of education: N/A Occupational History ??? Not on file. Social History Main Topics ??? Smoking status: Former Smoker Packs/day: 3.00 Years: 5.00 Types: Cigarettes Quit date: 07/26/1967 ??? Smokeless tobacco: Never Used ??? Alcohol use No ??? Drug use: No ??? Sexual activity: Not Currently Partners: Female Other Topics Concern ??? Not on file Social History Narrative Family Hx: Negative for Thrombosis, Bleeding Disorders Medications: No current facility-administered medications on file prior to encounter. Current Outpatient Prescriptions on File Prior to Encounter Medication Sig Dispense Refill ??? acetaminophen (TYLENOL) 500 mg Tablet Take 2 tablets by mouth every 6 hours as needed for Pain. 30 tablet 1 ??? AMIOdarone (PACERONE) 400 mg Tablet Take 1 tablet by mouth daily. 30 tablet 0 ??? atorvastatin (LIPITOR) 40 mg Tablet Take 1 tablet by mouth every evening. 90 tablet 3 ??? furosemide (LASIX) 20 mg Tablet Take 1 tablet by mouth daily. 30 tablet 0 ??? [] furosemide (LASIX) 40 mg Tablet Take 1 tablet by mouth daily for 4 days. 5 tablet 0 ??? lisinopril (PRINIVIL;ZESTRIL) 20 mg Tablet Take 0.5 tablets by mouth daily. 90 tablet 3 ??? meTOPROLOL tartrate (LOPRESSOR) 25 mg Tablet Take 1 tablet by mouth 2 times daily. 180 tablet 3 ??? potassium chloride (K-DUR/KLOR-CON) 10 mEq Tablet Sustained Release Take 1 tablet by mouth daily. 30 tablet 0 ??? cephalexin (KEFLEX) 500 mg Capsule Take 1 capsule by mouth 4 times daily. 20 capsule 0 ??? insulin lispro (HUMALOG KWIKPEN) Insulin Pen Inject 15-20 Units subcutaneously 3 times daily (with meals). 10 mL 1 ??? ACCU-CHEK TERA PLUS TEST STRP Strip 2-3 times daily 100 each 1 ??? metFORMIN (GLUCOPHAGE) 850 mg Tablet Take 1 tablet by mouth 2 times daily (with meals). 60 tablet 12 ??? LANTUS SOLOSTAR pen Inject 30 Units subcutaneously nightly. 15 mL 1 ??? BD INSULIN PEN NEEDLE UF MINI [...] 500 mg Capsule Take 500 mg by mouth. ??? Magnesium 200 mg Tablet Take 500 mg by mouth daily. ??? fish oil-omega-3 fatty acids 1,000 mg Capsule Take 2 g by mouth daily. ??? aspirin 81 mg EC tablet Take 81 mg by mouth every other day. ??? fluocinolone acetonide (SYNALAR) 0.01 % external solution Twice daily to less severe areas of psoriasis (Patient not taking: Reported on 06/03/2017) 60 mL 2 Allergies: Review of patient's allergies indicates no known allergies. Physical Exam: Temp: [36.6 ??C (97.9 ??F)] Heart Rate: [74] Resp: [16] BP: (137)/(70) SpO2: -- Heart Rate from SPO2: -- General: NAD, resting comfortably HEENT: PERRL, anicteric sclerae CVS: Regular rate, no murmurs rubs or gallops, chest incision clean dry and intact Pulm: Clear bilaterally Abd: soft, non tender, softly distended Ext: RLE: pulsitile groin mass size of a golf ball, lower groin ecchymosis and area concerning for hematoma, minimal edema. Skin warm and pink. No tissue loss. Brisk capillary refill, toes are non tender to touch, pale and cool compares to rest of leg and other extremities 2+ femoral pulse, dopplarable DP and PT LLE: No edema. Skin warm and pink. No tissue loss. Brisk capillary refill, palpable femoral 2+, DP 2+ and dopplarable PT, toes warm Neuro: Grossly nonfocal, moving all extremities. Labs: No results for input(s): WBC, HGB, HCT, PLATELET in the last 72 hours. No results for input(s): NA, K, CL, CO2, BUN, CREATININE, PHOS, CALCIUM in the last 72 hours. Imaging: CT angiogram aorta bilateral lower extremity: pending Assessment and Plan: 72 y.o. male with a PMH of hypertension, hyperlipidemia, DM 2, MARIA VICTORIA on CPAP who was admitted 06/25/17 with anterior STEMI who underwent a three-vessel CABG on 07/07 now with right toe ischemia and pulsatile right groin mass concerning for pseudoaneurysm. Patient feels improved on heparin gtt, will continue that as well as obtain imaging to assess vasculature. Due to patients kidneyfunction will treat with NS for 3 hours prior to scan. -Admit to vascular surgery, floor status, full code -CTA aorta bilateral lower extremity after 3 hours of NS -NPO at midnight, hold fluids after NS -labs -Heparin gtt -ISS -pain control Discussed with Vascular Fellow software applications engineer. Chris Valadez MD PGY2 Pager [phone] documented in this encounter ED Notes Annita Reaves MD - 07/20/2017 3:15 PM EST Emergency Department Gregory Fatima is a 72 y.o. male who presents to [facility] with arterial thrombosis. History of Present Illness / Review of Systems The patient is resting comfortably in the bed Physical Exam: I reviewed the patient???s vitals as recorded in the electronic medical record and ED nursing notes.The patient was non-toxic appearing and in no obvious distress. Assessment/Plan: This 72 y.o. male was transferred from an outside hospital emergency department to receive specialtycare provided by the vascular surgery service for cold foot. I discussed the case with resident/fellow of the accepting service. The patient was deemed to be stable and not requiring significant involvement from the attending emergency physician at this time. The accepting service has assumed further care of the patient. Please see their notes for any further clinical details. Annita Reaves MD 09/14/17 0445 Rayna Weir RN - 07/20/2017 1:47 AM EST IV team at bedside. Andrea Escobar MD - 07/19/2017 9:04 PM EST EM attending brief transfer acceptance note: Gregory Fatima is a 72 y.o. who I accepted in transfer from OSH The patient will be evaluated in the Emergency Department for cold foot on Warfarin INR of 1.5 started on heparin drip The EM team will contact the vascular surgery team as needed The OSH does not agree to take the patient back in transfer after our evaluation and treatment. Transfer and stabilization prior to transferwere not discussed Andrea Escobar MD 07/19/[id number] documented in this encounter Miscellaneous Notes Plan of Care - Laura Vega RN - 07/20/2017 3:15 PM EST Problem: Patient Care Overview Goal: Plan of Care Review Outcome: Outcome (s) achieved Date Met: 07/20/17 07/20/171807 Coping/Psychosocial Plan Of Care Reviewed With patient;spouse;daughter DISCHARGE NOTE; Gregory was discharged home today with VNA services. He left the floor alert and oriented, in a wheel chair with his and daughter. Discharge paperwork was reviewed with him and his , they expressed full understanding of all teaching. Gregory is confident in giving himself Lovenox shots, he demonstrated his underestimating via self administration this afternoon before discharge. OUTCOME EVALUATION NOTE: OUTCOME SUMMARY: Gregory had a great day today. He was in relatively zero to minimal pain. He is eager to return home. He will be discharged today with VNA services PLAN MOVING FORWARD: Discharge patient, follow up with VNA. INDIVIDUALIZED FALL PREVENTION INTERVENTIONS: Patient-specific fall risk factors per assessment: [current deficits]: IV Assistance [level of assistance required for transfers and ambulation]: standby Supervision [direct monitoring required during toileting and ADLs]: Eyes on Surveillance [continuous indirect monitoring]: leslieo Patient-specific fall prevention interventions for sensory deficits provided, if applicable: No CPG GOAL OUTCOME EVALUATION: Initial Assessments - Naty Pulliam RN - 07/20/2017 11:42 AM EST Office of Care Management Initial Assessment Naty Pulliam RN reviewed record and discussed patient with Care Team. Source of Information: EDH review, rounds, Patient interview Introduced self/reviewed role; services accepted. Reason for Hospitalization: Critical lower Limb Ischemia Past Medical History: Diagnosis Date ??? BPH (benign prostatic hyperplasia) 11/28/2013 ??? Melanoma 2006 mid back ??? Urinary retention 04/05/2013 Hospitalizations Within the Past 30 Days: [facility] 07/05/17 Anticipated Length Of Stay (If known): 2-3 days Current Decision-Making Capacity: Alert and oriented x 4 Advance Care Planning: on file Current Coping/Education/Information Needs: Patient is waiting to discharge home Current Functional Ability: Patient is independent Functional Status Prior to Admission: Patient was independent prior to admission Home Environment: lives in a two story home with steps into the home and flight of with in the home. Social & Family Supports/Community Resources: Lives with his she will assist as needed. Behavioral Health History: None Substance Use/Abuse: Former smoker quit in 1967 Other Pertinent/Service Specific Information: None Health/Prescription Coverage: Primary Insurance: MEDICARE Secondary Insurance: [employer] [facility] Prescription Coverage: See above Preferred Pharmacy: [facility] Other: N/A Primary Care Provider: Lovely Vicente MD [phone] Patient/Caregiver Goals of Treatment: Patient plans to return home when medically ready Potential Needs for Transition of Care: Rehab/SNF: N/A Home Health: [facility] ([facility] [place] [facility] in [place]) PHONE: [phone] FAX: [phone] DME: N/A Dialysis: N/A Community Resources: N/A Transportation: Patient family will transport Other: N/A Anticipated Barriers to Discharge/Special Considerations: None Plan: Patient plans to return home with home health services when medically ready A member of the Care Management team will continue to monitor progress, follow for continuity of care and assist with transition of care planning. Naty Pulliam RN Pager: [phone] ED Triage - Rayna Weir RN - 07/20/2017 12:28 AM EST Pt transferred from [place] for blue right foot and painful toes. Pt reports he has been having intermittent numbness and pain in BLE. RLE blue, but warm and cap refill >3. Resident Lizzie able todoppler a faint pedal pulse and luis enrique site. Alert and oriented. Respirations even and unlabored. Heparin continued at 1000 units/hr. documented in this encounter Plan of Treatment Upcoming Encounters Date Type Specialty Care Team Description 02/19/2022 Laboratory Appointment Lab 02/19/2022 Office Visit Cardiology Liz Poole PA [facility] Cardiology Dept [place], [place] [address] ([place]o ) 03/12/2022 Office Visit Cardiology Vitaliy Nobles MD [facility] CARDIOLOGY [place], [place] [address] ([place] ) documented as of this encounter Procedures Procedure Name Priority Date/Time Associated Comments Diagnosis HEAD BUCKER SCAN 09/02/2017 12:00 Res ults for this AM EST procedure are i n the results section. POCT GLUCOSE Routine 07/20/2017 12:04 Results for this PM EST procedure are i n the results section. HEMOGRAM STAT 07/20/2017 10:34 Results for this AM EST procedure are i n the results section. DIFFERENTIAL, STAT 07/20/2017 10:34 Results fo r this AUTOMATED AM EST procedure are i n the results section. APTT STAT 07/20/2017 10:34 Results for this AM EST procedure are i n the results section. CBC (WITH DIFF) STAT 07/20/2017 10:34 AM EST POCT GLUCOSE Routine 07/20/2017 7:41 AM Results f or this EST procedure are i n the results section. ARTERIAL DUPLEX LEG Routine 07/20/2017 7:33 AM Critical lower limb Results for this UNILA EST ischemia procedure are i n the results section. JULIAN, LEGS, MULTIPLE Routine 07/20/2017 7:33 AM Critical lower limb Results for this LEVELS EST ischemia procedure are i n the results section. CT ANGIOGRAM AORTA STAT 07/20/2017 7:00 AM Res ults for this LOWER EXTREMITY EST procedure ar e in RUNOFF the results section. POCT GLUCOSE Routine 07/20/2017 3:41 AM Results f or this EST procedure are i n the results section. LACTATE, WHOLE BLOOD, STAT 07/20/2017 2:25 AM Results for this SEND TO LAB EST procedure are i n ([facility]) the results section. APTT STAT 07/20/2017 2:25 AM Results f or this EST procedure are i n the results section. PROTHROMBIN TIME STAT 07/20/2017 2:25 AM Resul ts for this EST procedure are i n the results section. BASIC METABOLIC PANEL STAT 07/20/2017 2:25 AM Results for this (NON-FASTING) EST procedure are in the results section. documented in this encounter Results SCAN DOC: HEAD BUCKER (09/02/2017 12:00 AM EST) Narrative 09/02/2017 12:00 AM EST This result has an attachment that is no t available. Ordered by an unspecified provider. Scanning Provider MEDIA MGR SCAN EXT ORDR/RSLT POCT Glucose (07/20/2017 12:04 PM EST) P athologist Signature POC Glucose 189 65 - 199 [facility] mg/dL [facility] Comment: Supplemental ranges: <140 mg/dL before meals <180 mg/dL all other times of the day Specimen Anatomical Collection Method Collection Time Receive d Time (Source) Location / / Volume Laterality Blood specimen 07/20/2017 12:04 7 (specimen) PM EST 12:04 PM EST Arik Clement MD POINT OF CARE TEST ORDERABLE S Performing Organization Address City/State/ZIP Code Phon e Number [place] [id number] (ABNORMAL) Differential, Automated (07/20/2017 10:34 AM EST) [facility] Method Time Signature Neutrophils % 84.3 % [facility] Neutr Abs (ANC) 14.27 (H) 1.70 - [facility] 6.10 [facility] x10(3)/[facility] LABORATORY Lymphocytes % 5.6 % [facility] Lymphocytes Abs 1.0 0.9 - 3.2 [facility] x10(3)/[facility] LABORATORY Monocytes % 6.1 % [facility] Monocyte Abs 1.0 (H) 0.3 - 0.9 [facility] x10(3)/[facility] LABORATORY Eosinophils % 2.4 % [facility] Eosinophils Abs 0.4 0.0 - 0.4 [facility] x10(3)/[facility] LABORATORY Basophils % 0.5 % [facility] Basophils Abs 0.1 0.0 - 0.1 [facility] x10(3)/[facility] LABORATORY Immature Gran % 1.10 % [facility] Comment: Immature granulocytes(IG's)percentage an d absolute count will include metamyelocytes, myelocytes, and promyelo cytes. Blood smears from CBCs yielding IG's will be scanned manually for concor dance. If this scan disagrees with the automated IG or if promyelocytes are not ed, a manual differential will be performed. Melisa Gran Abs 0.19 (H) 0.00 - 0.04 x10(3)/[facility] LABORATORY Specimen Anatomical Collection Method Collection Time Receive d Time (Source) Location / / Volume Laterality Blood specimen 07/20/2017 10:34 7 (specimen) AM EST 10:39 AM EST Resulting Agency Comment Spec In Lab Arik Clement MD HEMATOLOGY ORDERABLES Performing Organization Address City/[facility]/ZIP Code Phon e Number [place] [id number] (ABNORMAL) Hemogram (07/20/2017 10:34 AM EST) Analysis Performed At Patho logist Time Signature WBC 17.0 (H) 4.0 - 9.5 [facility] x10(3)/[facility] LABORATORY RBC 3.70 (L) 4.58 - [facility] 5.54 [facility] x10(6)/[facility] LABORATORY Hemoglobin 10.8 (L) 13.7 - [facility] 16.5 gm/dL [facility] Hematocrit 33.4 (L) 40.5 - [facility] 48.5 % [facility] MCV 90.3 82.9 - [facility] 93.1 [facility] LABORATORY MCH 29.2 27.5 [facility] pg [facility] MCHC 32.3 32.0 - [facility] 35.7 gm/dL [facility] Platelets 211 145 - 357 [facility] x10(3)/[facility] LABORATORY RDWSD 49.1 (H) 36.0 - [facility] 45.0 [facility] LABORATORY RDWCV 14.7 (H) 11.4 - [facility] 13.8 % [facility] MPV 9.2 7.6 - 12.9 [facility] LABORATORY nRBC % Auto 0.0 % [facility] nRBC Abs Auto 0.000 0.000 - [facility] 0.000 [facility] x10(3)/[facility] LABORATORY Specimen Anatomical Collection Method Collection Time Receive d Time (Source) Location / / Volume Laterality Blood specimen 07/20/2017 10:34 7 (specimen) AM EST 10:39 AM EST Resulting Agency Comment Spec In Lab Arik Clement MD HEMATOLOGY ORDERABLES Performing Organization Address City/State/[place] [address] (ABNORMAL) APTT (07/20/2017 10:34 AM EST) P athologist Signature PTT 79 (H) 25 - 35 sec [facility] Comment: The recommended therapeutic range for fu ll dose, unfractionated heparin at [facility] is 80 ? 114 seconds. The use of the anti-Xa (heparin) level rather than the PTT is recommended for monitoring anticoagul ation intensity in critically ill patients receiving unfractionated hepari n by continuous IV infusion. Specimen Anatomical Collection Method Collection Time Receive d Time (Source) Location / / Volume Laterality Blood specimen 07/20/2017 10:34 7 (specimen) AM EST 10:39 AM EST Resulting Agency Comment Spec In Lab Arik Clement MD HEMATOLOGY ORDERABLES Performing Organization Address City/[facility]/ZIP Code Phon e Number [address] POCT Glucose (07/20/2017 7:41 AM EST) P athologist Signature POC Glucose 174 65 - 199 [facility] mg/dL [facility] Comment: Supplemental ranges: <140 mg/dL before meals <180 mg/dL all other times of the day Specimen Anatomical Collection Method Collection Time Receive d Time (Source) Location / / Volume Laterality Blood specimen 07/20/2017 7:41 AM 017 7:41 (specimen) EST AM EST Arik Clement MD POINT OF CARE TEST ORDERABLE S Performing Organization Address City/[facility]/ZIP Code Phon e Number [address] JULIAN, legs, multiple levels (07/20/2017 7:33 AM EST) Component Value Ref Test Analysis Performed At Patholo gist Range Method Time Signature VB Text Department: Vascular Surgery Lab [facility] Report Patient: [id number] (GREGORY FATIMA) CPT: 41694 ICD10: I75.021;I99.8 Referring Physician: ARIK CLEMENT ?? Indications: s/p cardiac cath, right groin access, right rebecca e toes, ? peripheral perfusion Diabetes mellitus: Yes ICD10 Diagnosis Code: I75.021, I99.8 Findings: Right ?Pressure (mm Hg) ?? JULIAN ??Waveform ? TBI ?? Brachial Artery ?140 ? Common Femoral Artery ?Triphasic ? Pop Fossa ?Triphasic ? Dorsalis Pedis (Ankle) Arter y ?167 ? 1.19 ??Bi-Triphasic ? Posterior Tibial (Ankle) Art anila ??184 ? 1.31 ??Bi-Triphasic ? Great Toe ?0 ? 0.00 ?? Left ? Pressure (mm Hg) ?? JULIAN ??Waveform ?TBI ?? Common Femoral Artery ?Triphasic ? Pop Fossa ?Triphasic ? Dorsalis Pedis (Ankle) Arter y ?177 ? 1.26 ??Triphasic ? Posterior Tibial (Ankle) Art anila ??157 ? 1.12 ??Triphasic ? Great Toe ?58 ? 0.41 ?? Interpretation: RIGHT: No significant lower extremity ar terial occlusive disease identified at rest to the distal calf. No obtainable right great toe pressure indicates severe occlusive disease in the ankle/foot/toe regions. LEFT: No significant lower extremity arterial oc clusive disease identified at rest to the distal calf. Nor mal ankle/brachial pressure ratios and ankle Doppler waveforms. 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 Comparison: ??No previous study in our vascular lab da tabase for comparison. Notification: Dr. Migdalia Wheeler was informed of these prel iminary findings. Electronically Signed by: ELIZABETH LLANOS on 2017-07-20 09:56: 59 PM VB Text End of Report [facility] Report Specimen (Source) Anatomical Collection Method Collection Time Re ceived Time Location / / Volume Laterality 07/20/2017 7:33 AM EST Arik Clement MD VASCULAR ORDERABLES Performing Organization Address City/State/ZIP Code Phon e Number [facility] Arterial Duplex Leg, Unil (07/20/2017 7:33 AM EST) Component Value Ref Test Analysis Performed At [facility] Range Method Time Signature VB Text Department: Vascular Surgery Lab [facility] Report Patient: [id number] (GREGORY FATIMA) CPT: 89675 ICD10: I97.610;I99.8 Referring Physician: ARIK CLEMENT ?? Indications: s/p cardiac cath, right groin access, 3 cm PSA seen on CTA, ? patency/need for thrombin injection ICD10 Diagnosis Code: I99.8, I97.610 Findings: Right ? PSV (c m/s) ??EDV ?? Common Femoral Artery, Mid ? 115 ?0 ?? Superficial Femoral Artery, Proximal ?78 ?7 ?? Interpretation: Patent right common femoral artery and super ficial femoral artery with normal triphasic Doppler waveforms. A thrombosed pseudoaneurysm was visualized in the right groi n measuring approximately 3.0 x 2.3 x 4.7 cm. There is no active flow within the PSA. Comparison: ??No previous study in our vascular lab da tabase for comparison. Notification: Dr. Manuela Wheeler was informed of these prelimi nary findings. Electronically Signed by: ELIZABETH LLANOS on 2017-07-20 09:58: 33 PM VB Text End of Report [facility] Report Specimen (Source) Anatomical Collection Method Collection Time Re ceived Time Location / / Volume Laterality 07/20/2017 7:33 AM EST Arik Clement MD VASCULAR ORDERABLES Performing Organization Address City/State/ZIP Code Phon e Number [facility] CT Angiogram Aorta Lower Extremity Runoff (07/20/2017 7:00 AM EST) Anatomical Region Laterality Modality Abdomen Computed Tomography Specimen (Source) Anatomical Location Collection Method / Collectio n Time Received Time / Laterality Volume Impressions 07/20/2017 7:19 AM EST 1. ??RIGHT common femoral artery small pseudoaneurysm with 3 cm overlying hematoma. 2. ??Predominantly occluded bilateral an terior tibial arteries, with diminished flow within the RIGHT dorsalis pedis. 3. ??Predominantly nonopacified bilatera l posterior tibial arteries. 4. ??Heterogeneous splenic enhancement m ay be sequela phase of contrast, although there are large wedge-shaped areas of no nopacification; splenic infarcts not excluded. Narrative 07/20/2017 7:19 AM EST EXAMINATION: CT ANGIOGRAM AORTA LOWER EXTREMITY RUNOFF CLINICAL HISTORY: s/p CABG eval now w/ s ymptoms of RLE ischemia, eval for blockage TECHNIQUE: Helical CTA of the abdomen, p dipika and lower extremities was performed following intravenous administ ration of 120cc of Omnipaque 350. MPRs were performed. 3-D images were are not provided at the time of interpretation. COMPARISON: None FINDINGS: VASCULAR FINDINGS Abdominal aorta: No stenosis or aneurysm . Celiac: No stenosis. SMA: No stenosis. Right renal artery: No stenosis. Small a ccessory artery. Left renal artery: No stenosis. OSMANI: No stenosis. RIGHT LOWER EXTREMITY Common iliac artery: Widely patent. External iliac artery: Widely patent. Internal iliac artery: Widely patent. Common femoral artery: Widely patent. 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 Superficial femoral artery: Widely paten t. Profundus femoral artery: Widely patent. Popliteal artery: Widely patent Anterior tibial artery: Focally occluded proximally with a small segment of opacification, beyond which it is predom inantly occluded with scattered calcifications. Tibio-peroneal trunk: Widely patent. Posterior tibial artery: Tandem areas of narrowing/occlusion and overall not well opacified, with scattered calcifica tions. Peroneal artery: Widely patent. Dorsalis pedis: Diminished flow. Plantar arteries: Widely patent. LEFT LOWER EXTREMITY Common iliac artery: Widely patent. External iliac artery: Widely patent. Internal iliac artery: Widely patent. Common femoral artery: Widely patent. Superficial femoral artery: Widely paten t. Profundus femoral artery: Widely patent. Popliteal artery: Widely patent Anterior tibial artery: Occluded beyond its proximal portion with minimal reconstitution distally. Tibio-peroneal trunk: Widely patent. Posterior tibial artery: Severe focal na rrowing along its midportion and not opacified distally. Peroneal artery: Widely patent. Dorsalis pedis: Widely patent. Plantar arteries: Widely patent. NON-VASCULAR FINDINGS Included Lower Chest: Cardiomegaly. Trac e LEFT pleural effusion. Hypoventilatory dependent changes, with areas of subsegm ental atelectasis and/or scarring. Liver: Unremarkable. Gallbladder: Unremarkable. Spleen: Heterogeneous enhancement may be sequela phase of contrast, although there are large wedge-shaped areas of no nopacification. Pancreas: Unremarkable. Adrenal Glands: Unremarkable. Kidneys: Unremarkable. Urinary bladder: Unremarkable. Prostate gland: Mildly enlarged and hete rogeneous with scattered calcifications. GI: Scattered noninflamed sigmoid divert icula. Mesentery/Peritoneum: No free air identi fied. No free fluid seen. Lymphatic System: No lymphadenopathy yi ntified. External Soft Tissues: Subcutaneous alka a of the bilateral lower extremities below the knees. Osseous Structures: No acute abnormality identified. Procedure Note Jesús Menendez MD - 07/20/2017 EXAMINATION: CT ANGIOGRAM AORTA LOWER EX TREMITY RUNOFF CLINICAL HISTORY: s/p CABG eval now w/ s ymptoms of RLE ischemia, eval for blockage TECHNIQUE: Helical CTA of the abdomen, p dipika and lower extremities was performed following intravenous administ ration of 120cc of Omnipaque 350. MPRs were performed. 3-D images were are not provided at the time of interpretation. COMPARISON: None FINDINGS: VASCULAR FINDINGS Abdominal aorta: No stenosis or aneurysm . Celiac: No stenosis. SMA: No stenosis. Right renal artery: No stenosis. Small a ccessory artery. Left renal artery: No stenosis. OSMANI: No stenosis. RIGHT LOWER EXTREMITY Common iliac artery: Widely patent. External iliac artery: Widely patent. Internal iliac artery: Widely patent. Common femoral artery: Widely patent. 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 Superficial femoral artery: Widely paten t. Profundus femoral artery: Widely patent. Popliteal artery: Widely patent Anterior tibial artery: Focally occluded proximally with a small segment of opacification, beyond which it is predom inantly occluded with scattered calcifications. Tibio-peroneal trunk: Widely patent. Posterior tibial artery: Tandem areas of narrowing/occlusion and overall not well opacified, with scattered calcifica tions. Peroneal artery: Widely patent. Dorsalis pedis: Diminished flow. Plantar arteries: Widely patent. LEFT LOWER EXTREMITY Common iliac artery: Widely patent. External iliac artery: Widely patent. Internal iliac artery: Widely patent. Common femoral artery: Widely patent. Superficial femoral artery: Widely paten t. Profundus femoral artery: Widely patent. Popliteal artery: Widely patent Anterior tibial artery: Occluded beyond its proximal portion with minimal reconstitution distally. Tibio-peroneal trunk: Widely patent. Posterior tibial artery: Severe focal na rrowing along its midportion and not opacified distally. Peroneal artery: Widely patent. Dorsalis pedis: Widely patent. Plantar arteries: Widely patent. NON-VASCULAR FINDINGS Included Lower Chest: Cardiomegaly. Trac e LEFT pleural effusion. Hypoventilatory dependent changes, with areas of subsegm ental atelectasis and/or scarring. Liver: Unremarkable. Gallbladder: Unremarkable. Spleen: Heterogeneous enhancement may be sequela phase of contrast, although there are large wedge-shaped areas of no nopacification. Pancreas: Unremarkable. Adrenal Glands: Unremarkable. Kidneys: Unremarkable. Urinary bladder: Unremarkable. Prostate gland: Mildly enlarged and hete rogeneous with scattered calcifications. GI: Scattered noninflamed sigmoid divert icula. Mesentery/Peritoneum: No free air identi fied. No free fluid seen. Lymphatic System: No lymphadenopathy yi ntified. External Soft Tissues: Subcutaneous alka a of the bilateral lower extremities below the knees. Osseous Structures: No acute abnormality identified. IMPRESSION 1. 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 2. 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 3. Predominantly nonopacified bilateral posterior tibial arteries. 4. Heterogeneous splenic enhancement may be sequela phase of contrast, although there are large wedge-shaped areas of no nopacification; splenic infarcts not excluded. Annita Reaves MD IMG CT ORDERABLES POCT Glucose (07/20/2017 3:41 AM EST) athologist Signature POC Glucose 199 65 - 199 [facility] mg/dL [facility] Comment: Supplemental ranges: <140 mg/dL before meals <180 mg/dL all other times of the day Specimen Anatomical Collection Method Collection Time Receive d Time (Source) Location / / Volume Laterality Blood specimen 07/20/2017 3:41 AM 017 3:41 (specimen) EST AM EST Arik Clement MD POINT OF CARE TEST ORDERABLE S Performing Organization Address City/State/[place] [address] Lactate, whole blood, send to lab (Leb/CGP) (07/20/2017 2:25 AM EST) athologist Signature Lactate WB 2.0 0.5 - 2.2 [place] [facility] Specimen Anatomical Collection Method Collection Time Receive d Time (Source) Location / / Volume Laterality Blood specimen Venous Draw / 07/20/2017 2:25 AM 2016 2:37 (specimen) Unknown EST AM EST Resulting Agency Comment Spec In Lab Zulma Samuel MD CHEMISTRY ORDERABLES Performing Organization Address City/[facility]/[place] [address] (ABNORMAL) APTT (07/20/2017 2:25 AM EST) P athologist Signature PTT 36 (H) 25 - 35 sec [facility] Comment: The recommended therapeutic range for fu ll dose, unfractionated heparin at [facility] is 80 ? 114 seconds. The use of the anti-Xa (heparin) level rather than the PTT is recommended for monitoring anticoagul ation intensity in critically ill patients receiving unfractionated hepari n by continuous IV infusion. Specimen Anatomical Collection Method Collection Time Receive d Time (Source) Location / / Volume Laterality Blood specimen 07/20/2017 2:25 AM 017 2:33 (specimen) EST AM EST Resulting Agency Comment Spec In Lab Annita Reaves MD HEMATOLOGY ORDERABLES Performing Organization Address City/[facility]/[place] [address] (ABNORMAL) Prothrombin Time (07/20/2017 2:25 AM EST) P athologist Signature PT 17.7 (H) 11.8 - 14.0 [facility]ATORY INR 1.5 (H) 0.9 - 1.1 [facility] Comment: An INR <2.0 [...] Location / / Volume Laterality Blood specimen 07/20/2017 2:25 AM 017 2:33 (specimen) EST AM EST Resulting Agency Comment Spec In Lab Annita Reaves MD HEMATOLOGY ORDERABLES Performing Organization Address City/State/[place] [address] (ABNORMAL) Basic Metabolic Panel (non-fasting) (07/20/2017 2:25 AM EST) athologist Signature Glucose Lvl 187 65 - 199 [facility] mg/dL [facility] Comment: Diabetes: >=200 mg/dL plus symp toms BUN 35 (H) 10 - 20 mg/dL [facility] Creatinine 1.51 (H) 0.80 - 1.50 mg/dL [facility] Sodium 134 (L) 135 - 145 mmol/L [facility] Potassium Not Perf 3.5 - 5.0 mmol/L [facility] Comment: Specimen hemolyzed. Called by: [facility], Read back by: Chitra Orantes, Date/Time:07/20/17 03:05. Please note: ??Patients with WBC >100,00 0 may have falsely elevated Potassium levels. ??For accurate Potassium quantif ication in these patients send serum separator tube (gold top) for subsequent determinations. ??Contact the Clinical Chemistry Laboratory if there are any qu estions. Chloride 92 (L) 98 - 107 mmol/L [facility] CO2 29 22 - 31 mmol/L [facility] Anion Gap 13 5 - 15 mmol/L [facility] Calcium 8.6 8.5 - 10.5 mg/dL [facility] Estimated GFR 46 (L) >=60 [facility] Comment: The reported eGFR should be multiplied b y 1.2 for patients. The MDRD is not an appropriate measure o f renal function for patients with body mass extremes or in patients with acute kidney failure. http://[facility]/DHnkdep http://[facility]/DHMCnkf Specimen Anatomical Collection Method Collection Time Receive d Time (Source) Location / / Volume Laterality Blood specimen 07/20/2017 2:25 AM 017 2:33 (specimen) EST AM EST Resulting Agency Comment Spec In Lab Annita Reaves MD CHEMISTRY ORDERABLES Performing Organization Address City/State/ZIP [place] [address] documented in this encounter Visit Diagnoses Diagnosis Critical lower limb ischemia Unspecified circulatory system disorder documented in this encounter Admitting Diagnoses Diagnosis Critical lower limb ischemia Unspecified circulatory system disorder documented in this encounter Administered Medications Inactive Administered Medications - up to 3 most recent administrations Medication Order MAR Action Action Date Dose Rate Site acetaminophen (TYLENOL) tablet Given 07/20/2017 10:17 AM EST 1,0 00 mg 1,000 mg 1,000 mg, Oral, EVERY 6 HOURS PRN, Starting on Wed07/20/17 at 0424, Until Wed07/20/17 at 1716, Pain, Maximum dose of acetaminophen is 4000 mg from all sources in 24 hours., Routine AMIOdarone (CORDARONE; PACERONE) tablet 400 Given 06/26 10:17 AM EST 400 mg mg 400 mg, Oral, DAILY, First dose on Wed07/20/17 at 0900, Until Discontinued, Routine dextrose 50% IV syringe 25-50 mL 25-50 mL (12.5-25 g), Intravenous, EVERY 1 HOUR PRN, Starting on Wed07/20/17 at 0424, Until Wed07/20/17 at 1716, Low bl ood sugar, For BG 50-70: 120 mL Juice [...] the duration of the active insulin., Routine enoxaparin (LOVENOX) injection 80 mg Given 07/20/2017 12:14 PM EST 80 mg 80 mg, Subcutaneous, ONCE, 1 dose, On Wed07/20/17 at 1100, Ok to d/c heparin 45mins after lovenox injection, STAT glucagon (human recombinant) injection S olR 1 mg 1 mg, Intramuscular, EVERY 1 HOUR PRN, S tarting on Wed07/20/17 at 0424, Until Wed07/20/17 at 1716, Low blood sugar, For BG 50-70: 120 [...] of the active insulin., Routine heparin (porcine) injection 0-8,000 Unit s 0-8,000 Units, Intravenous, BOLUS PER HE JOANNE PROTOCOL, Starting on Wed07/20/17 at 0424, Until Wed07/20/17 at 1716, Per Pr otocol, START ADJUSTMENT SCHEDULE 6 HOURS AFTER STARTING INFUSION aPTT Between 6 0 - 79 seconds: Bolus 3,150 units aPTT Less than 60 seconds: Bolus 6,300 units Increase infusio n and recheck aPTT in 6 hours. , Routine heparin 25,000 units in New Bag 07/20/2017 4:36 AM 1,350 Units/hr 27 mL/hr Right Arm dextrose 5% 500 mL EST infusion 0-5,000 Units/hr (0-100 mL/hr), Intravenous, CONTINUOUS, Starting on Wed07/20/17 at 0445, Until Wed07/20/17 at 1716, Begin infusion at 1,350 units per hr (15 units/kg/hr). MAX INITIAL infusion rate is 1,750 units/hr Target aPTT = 80 - 114 seconds Start adjustment schedule 6 hours after starting infusion. If aPTT is: - Less than 60 seconds, administer PRN bolus and increase rate by 350 units per hr (4 units/kg/hr) - 60-79 seconds, administer PRN bolus AND increase rate by 200 units per hr (2 units/kg/hr) - 80-114 seconds, no change - 115-129 seconds, decrease rate by 100 units per hr (1 unit/kg/hr) - 130-145 seconds, stop infusion for 30 minutes then decrease rate by 200 units per hr [...] order required aPTT - Per Protocol, Routine HYDROmorphone (DILAUDID) injection 0.5 m g Given 07/20/2017 1:45 AM EST 0.5 mg 0.5 mg, Intravenous, EVERY 30 MIN PRN, Starting on Wed07/20/17 at 0024, Until Wed07/20/17 at 0427, Pain, STAT HYDROmorphone (DILAUDID) tablet 2 mg Given 07/20/2017 10:20 AM EST 2 mg 2 mg, Oral, EVERY 4 HOURS PRN, Starting on Wed07/20/17 at 0424, Until Wed07/20/17 at 1716, Pain, Routine Given 07/20/2017 5:24 AM EST 2 mg insulin lispro (humaLOG) VIAL injection 1-4 Given 06/26 12:22 PM EST 2 Units Units 1-4 Units, Subcutaneous, EVERY 4 HOURS SCHEDULED, First dose on Wed07/20/17 at 0445, Until Discontinued, CORRECTION BOLUS Sensitive to insulin lean patient or total daily dose of all insulin needed to achieve glycemic control less than 30 units BG 140 - 160 Give 1 unit BG 161 - 200 Give 2 units BG 201 - 240 Give 3 units BG greater than 240, give 4 units and recheck BG in 2 hours. If less than 240 after two hours, give no insulin and resume prior schedule. If BG remains greater than 240, repeat 4 units (no more than three times) & call for new basal insulin orders. DO NOT hold if NPO, unless specifically told to do so., Routine Given 07/20/2017 7:59 AM EST 2 Units iohexol (OMNIPAQUE) 350 mg/mL solution 0-200 Given 6:37 AM EST 120 mLs mL 0-200 mL, Intravenous, ONCE PRN, 1 dose, Starting on Wed07/20/17 at 0427, Until Wed07/20/17 at 0637, Per Protocol, Warning Vesicant/Irritant Medication , Radiology Contrast, Routine meTOPROLOL tartrate (LOPRESSOR) tablet 2 5 mg Given 07/20/2017 10:16 AM EST 25 mg 25 mg, Oral, 2 TIMES DAILY, First dose on Wed07/20/17 at 0900, Until Discontinued, Routine sodium chloride 0.9 % flush 5 mL Given 07/20/2017 10:22 AM EST 5 mLs 5 mL, Intravenous, 2 TIMES DAILY, First dose on Wed07/20/17 at 0900, Until Discontinued, Recovery (Recovery-Hospital Unit), Routine sodium chloride 0.9% infusion New Bag 07/20/2017 2:35 AM EST 100 mL/hr 100 mL/hr 100 mL/hr, Intravenous, CONTINUOUS, Starting on Wed07/20/17 at 0104, Until Wed07/20/17 at 0403 documented in this encounter Active and Recently Administered Medications Times are shown in EST. Scheduled Medication Order 07/18/2017 07/19/2017 07/20/2017 AMIOdarone (CORDARONE; PACERONE) tablet 400 mg 1017 (Given - Provider: Laura Vega RN - Comment: PT was off the floor) 400 mg, Oral, DAILY, First dose on Wed 1 09/20/16 at 0900, Until Discontinued, Routine atorvastatin (LIPITOR) tablet 40 mg 40 mg, Oral, EVERY EVENING, First dose o n Wed07/20/17 at 1700, Until Discontinued, Routine enoxaparin (LOVENOX) injection 80 mg (COMPLETED) 1214 (Given - Provider: Laura Vega RN - Comment: not up from RX) 80 mg, Subcutaneous, ONCE, 1 dose, Wed09/20/16 at 1100, Ok to d/c heparin 45mins after lovenox injection, STAT insulin glargine VIAL injection 10 Units 0445 (Hold - Provider: Ines Cantu RN - Reason: Medication not available) 10 Units, Subcutaneous, EVERY 24 HOURS, First dose on Wed07/20/17 at 0445, Until Discontinued, Routine insulin lispro (humaLOG) VIAL injection 1-4 Units(Linked Group 1 ) 0445 (Hold - Provider: Ines Cantu RN - Reason: Medication not available)0759 (Given - Provider: Laura Vega RN)1222 (Given - Provider: Laura Vega RN) 1-4 Units, Subcutaneous, EVERY 4 HOURS S CHEDULED, First dose on Wed07/20/17 at 0445, Until Discontinued, CORRECTION BOLUS Sensitive to insulin lean patient or total daily dose of all insulin needed to achieve glycemic control less than 3 0 units BG 140 - 160 Give 1 unit BG 161 - 200 Give 2 units BG 201 - 240 Give 3 units BG greater than 240, give 4 units and recheck BG in 2 hours. If less than 240 after two hours, give no insulin and re sume prior schedule. If BG remains greater than 240, repeat 4 units (no more than three times) & call for new basal insulin orders. DO NOT hold if NPO, unless specifically told to do so., Routine levothyroxine (SYNTHROID) tablet 175 mcg 0600 (Not Given - Provider: Ines Cantu RN - Reason: NPO) 175 mcg, Oral, EVERY MORNING, First dose on Wed07/20/17 at 0600, Until Discontinued, Routine meTOPROLOL tartrate (LOPRESSOR) tablet 25 mg 1016 (Given - Provider: Laura Vega RN - Comment: PT off the floor) 25 mg, Oral, 2 TIMES DAILY, First dose o n Wed07/20/17 at 0900, Until Discontinued, Routine sodium chloride 0.9 % flush 5 mL 1022 (Given - Provider: Laura Vega RN) 5 mL, Intravenous, 2 TIMES DAILY, First dose on Wed07/20/17 at 0900, Until Discontinued, Recovery (Recovery-Hospital Unit), Routine Continuous Medication Order 07/18/2017 07/19/2017 07/20/2017 heparin 25,000 units in dextrose 5% 500 mL infusion(Linked Group 2) 0436 (New Bag - Provider: Ines Cantu RN) 0-5,000 Units/hr (0-100 mL/hr), Intraven ous, at 0-100 mL/hr, CONTINUOUS, Starting Wed07/20/17 at 0445, Until Wed07/20/17 at 1716, Begin infusion at 1,350 units per hr (15 units/kg/hr). MAX INITIAL inf usion rate is 1,750 units/hr Target aPTT = 80 - 114 seconds Start adjustment schedule 6 hours after starting infusion. If aPTT is: - Less than 60 seconds, administer PRN bolus and increase rate by 350 u nits per hr (4 units/kg/hr) - 60-79 seco nds, administer PRN bolus AND increase rate by 200 units per hr (2 units/kg/hr) - 80-114 seconds, no change - 115-129 seconds, decrease rate by 100 units per hr ( 1 unit/kg/hr) - 130-145 seconds, stop in fusion for 30 minutes then decrease rate by 200 units per hr (2 units/kg/hr) - Greater than 145 seconds, stop infusion for 60 minutes then decrease rate by 250 un its per hour (3 units/kg/hr) Repeat aPTT 6 hours after initiating heparin. Then 6 hours after each dose adjustment. When 2 consecutive aPTT within target range of 80 - 114 seconds, change aPTT to once e very 24 hours with A.M. labs while on he joanne. RN to order required aPTT - Per Protocol, Routine sodium chloride 0.9% infusion 02 35 (New Bag - Provider: Rayna Weir RN) 100 mL/hr, at 100 mL/hr, Intravenous, CO NTINUOUS, Starting Wed07/20/17 at 0104, Until Wed07/20/17 at 0403 PRN Medication Order 07/18/2017 07/19/2017 07/20/2017 acetaminophen (TYLENOL) tablet 1,000 mg 1017 (Given - Provider: Laura Vega RN) 1,000 mg, Oral, EVERY 6 HOURS PRN, Start ing Wed07/20/17 at 0424, Until Wed07/20/17 at 1716, Pain, Maximum dose of acetaminophen is 4000 mg from all sources in 24 hours., Routine dextrose 50% IV syringe 25-50 mL(Linked Group 3) 25-50 mL (12.5-25 g), Intravenous, EVERY 1 HOUR PRN, Starting Wed07/20/17 at 0424, Until Wed07/20/17 at 1716, Low blood sugar, For BG 50-70: 120 mL Juice or Regular (not diet) soda OR 12.5 gram (25 mL) Dextrose 50% IV OR, if no IV access, 1 mg Glucagon IM. Recheck BG in 30 minutes. May repeat juice, dextrose or glucagon once per episode For BG less than 50: 240 mL Juice or Regular (not diet) s tila OR 25 grams (50 mL) Dextrose 50% IV OR, if no IV access, 1 mg Glucagon IM. Recheck BG in 30 minutes. May repeat juice, dextrose, or glucagon once per episode. To avoid extravasation, push Dextro se 50% SLOWLY (3 mL over 1 minute) in a patent, running IV, preferably a central line. For persistent hypoglycemia, consider longer-acting treatment for the duration of the active insulin., Routine glucagon (human recombinant) injection SolR 1 mg(Linked Group 3) 1 mg, Intramuscular, EVERY 1 HOUR PRN, S tarting Wed07/20/17 at 0424, Until Wed07/20/17 at 1716, Low blood sugar, For BG 50-70: 120 mL Juice or Regular (not diet) soda OR 12.5 gram (25 mL) Dextrose 5 0% IV OR, if no IV access, 1 mg Glucagon IM. Recheck BG in 30 minutes. May repeat juice, dextrose or glucagon once per episode For BG less than 50: 240 mL Juice or Regular (not diet) soda OR 25 gram s (50 mL) Dextrose 50% IV OR, if no IV a ccess, 1 mg Glucagon IM. Recheck BG in 30 minutes. May repeat juice, dextrose, or glucagon once per episode. To avoid extravasation, push Dextrose 50% SLOWLY (3 mL over 1 minute) in a patent, runnin g IV, preferably a central line. For persistent hypoglycemia, consider longer-acting treatment for the duration of the active insulin., Routine heparin (porcine) injection 0-8,000 Units(Linked Group 2) 0-8,000 Units, Intravenous, BOLUS PER [facility] PROTOCOL, Starting Wed07/20/17 at 0424, Until Wed07/20/17 at 1716, Per Protocol, START ADJUSTMENT SCHEDULE 6 HOURS AFTER STARTING INFUSION aPTT Betwee n 60 - 79 seconds: Bolus 3,150 units aPT T Less than 60 seconds: Bolus 6,300 units Increase infusion and recheck aPTT in 6 hours. , Routine HYDROmorphone (DILAUDID) injection 0.5 mg (CANCELED) 0145 (Given - Provider: Rayna Weir, VAMSI) 0.5 mg, Intravenous, EVERY 30 MIN PRN, S tarting Wed07/20/17 at 0024, Until Wed07/20/17 at 0427, Pain, STAT HYDROmorphone (DILAUDID) tablet 2 mg 0524 (Given - Provider: Ines Cantu, VAMSI)1020 (Given - Provider: Laura Vega, VAMSI) 2 mg, Oral, EVERY 4 HOURS PRN, Starting Wed07/20/17 at 0424, Until Wed07/20/17 at 1716, Pain, Routine iohexol (OMNIPAQUE) 350 mg/mL solution 0-200 mL (COMPLETED) 0637 (Given - Provider: Lissette Cruz - Comment: TLC/WNL) 0-200 mL, Intravenous, ONCE PRN, 1 dose, Starting Wed07/20/17 at 0427, Until Discontinued, Per Protocol, Warning Vesicant/Irritant Medication , Radiology Contrast, Routine lidocaine (XYLOCAINE) 10 mg/mL (1 %) injection 3 mg 3 mg (0.3 mL), Subcutaneous, ONCE PRN, 1 dose, Starting Wed07/20/17 at 0424, Until Wed07/20/17 at 1716, for discomfort with PIV insertion, Recovery (Recovery-Hospital Unit), Routine sodium chloride 0.9 % flush 5-20 mL 5-20 mL, Intravenous, EVERY 1 MIN PRN, S tarting Wed07/20/17 at 0424, Until Wed07/20/17 at 1716, flush, Flush pertains to all indwelling lines. Flush per protocol found in the job aid using the link pr ovided on this medication record., Recovery (Recovery-Hospital U nit), Routine Linked Groups Order Group 1: POCT Fingerstick Glucose (CANCELED) Routine, EVERY 4 HOURS, First occurrence on Wed07/20/17 at 0800, Until Specified
Consider choosing EVERY 4 HOURS as frequency for: - Type 1 Diabetes - At least 24 hours after coming off an ins ulin drip - At least 24 hours after admi ssion for DKA - Hypoglycemia unawareness - Patients who are otherwise unstable Select the same frequency for the correction bolus insulin order And insulin lispro (humaLOG) VIAL injection 1-4 UnitsJump to med 1-4 Units, Subcutaneous, EVERY 4 HOURS S CHEDULED, First dose on Wed07/20/17 at 0445, Until Discontinued
CORRECTION BOLUS Sensitive to insulin lean patient or total daily dose of all insulin needed to achieve g lycemic control less than 30 units BG 140 - 160 Give 1 unit BG 161 - 200 Give 2 units BG 201 - 240 Give 3 units&nbs p; BG greater than 240, give 4 units and recheck BG in 2 hours. If less than 240 after two hours, give no insulin and resume prior schedule. If BG remains greater than 240, repeat 4 u nits (no more than three times) & call f or new basal insulin orders. DO NOT hold if NPO, unless specifically told to do so.
Routine Group 2: heparin (porcine) injection 0-8,000 UnitsJump to med 0-8,000 Units, Intravenous, BOLUS PER HE JOANNE PROTOCOL, Starting Wed07/20/17 at 0424, Until Wed07/20/17 at 1716, Per Protocol
START ADJUSTMENT SCHEDULE 6 HOURS AFTER STARTING INFUSION&amp ;nbsp; aPTT Between 60 - 79 seconds : Bolus 3,150 units aPTT Less than 60 seconds: Bolus 6,300 units Increase infusion and recheck aPTT in 6 hours.
Routine And heparin 25,000 units in dextrose 5% 500 mL infusionJump to med 0-5,000 Units/hr (0-100 mL/hr), Intraven ous, at 0-100 mL/hr, CONTINUOUS, Starting Wed07/20/17 at 0445, Until Wed07/20/17 at 1716
Begin infusion at 1,350 units per hr (15 units/kg/hr). MAX INI TIAL infusion rate is 1,750 units/hr&nbs p; Target aPTT = 80 - 114 seconds Start adjustment schedule 6 hours after starting infusion. If aPTT is:&n bsp; - Less than 60 seconds, admini ster PRN bolus and increase rate by 350 units per hr (4 units/kg/hr) - 60-79 seconds, administer PRN bolus AND increase rate by 200 units per hr (2 u nits/kg/hr) - 80-114 seconds, no c hange - 115-129 seconds, decrease rate by 100 units per hr (1 unit/kg/hr) - 130-145 seconds, stop infusion for 30 minutes then decrease rate by 200 units per hr (2 units/kg/hr)&nbs p;- Greater than 145 seconds, stop infusion for 60 minutes then decrease rate by 250 units per hour (3 units/kg/hr) Repeat aPTT 6 hours aft er initiating heparin. Then 6 hours afte r each dose adjustment. When 2 consecutive aPTT within target range of 80 - 114 seconds, change aPTT to once every 24 hours with A.M. labs while on heparin. & nbsp; RN to order required aPTT - P er Protocol
Routine Group 3: dextrose 50% IV syringe 25-50 mLJump to med 25-50 mL (12.5-25 g), Intravenous, EVERY 1 HOUR PRN, Starting Wed07/20/17 at 0424, Until Wed07/20/17 at 1716, Low blood sugar
For BG 50- 70: 120 mL Juice or Regular (not d iet) soda OR 12.5 gram (25 mL) Dextrose 50% IV OR, if no IV access, 1 mg Glucagon IM. Recheck BG in 30 minutes. May repeat juice, dextrose or glucagon once per ep isode For BG less than 50: 240 mL Juice or Regular (not diet) soda OR 25 grams (50 mL) Dextrose 50% IV OR, if no IV access, 1 mg Glucagon IM. Recheck BG in 30 minutes. &am p;nbsp;May repeat juice, dextrose, or gl ucagon once per episode. To avoid extravasation, push Dextrose 50% SLOWLY (3 mL over 1 minute) in a patent, running IV, preferably a central line.& nbsp;For persistent hypoglycemia, cons ider longer-acting treatment for the duration of the active insulin.
Routine Or glucagon (human recombinant) injection SolR 1 mgJump to med 1 mg, Intramuscular, EVERY 1 HOUR PRN, S tarting Wed07/20/17 at 0424, Until Wed07/20/17 at 171, Low blood sugar
For BG 50-70: 120 mL Juice or Regular (not diet) soda OR 1 2.5 gram (25 mL) Dextrose 50% IV OR, if no IV access, 1 mg Glucagon IM. Recheck BG in 30 minutes. May repeat juice, dextrose or glucagon once per episode&nbsp ;For BG less than 50: 240 mL Juice or Regular (not diet) soda OR 25 grams (50 mL) Dextrose 50% IV OR, if no IV access, 1 mg Glucagon IM. Recheck BG in 30 minutes. May rep eat juice, dextrose, or glucagon once pe r episode. To avoid extravasation, push Dextrose 50% SLOWLY (3 mL over 1 minute) in a patent, running IV, preferably a central line. For per sistent hypoglycemia, consider longer-ac ting treatment for the duration of the active insulin.
Routine documented in this encounter Care Teams Sensor Technician Relationship Specialty Start Date End Date Lovely Vicente MD PCP - General 04/16/[address] [place] [address] documented as of this encounter
--- OUTSIDE RECORDS SUMMARY | 2022-02-06 13:36 | XMS_ITS | Encounter Summary ---
:1945 Author Organization [facility] [place] [address] Care Team Providers Name Role Phone Lovely Vicente MD Primary Care Provider Encounter Details Date Type Department Care Team Description 07/29/2017 Transcribe Orders Laboratory Lovely Vicente MD [address] [id number] [place], [place] [id number] (Mikayla rk) Social History Tobacco Use Types [...] Visit Cardiology Liz Poole PA [facility] er Cardiology Dept [place], [place] [address] (Wo rk) 03/12/2022 Office Visit Cardiology Vitaliy Nobles MD [facility] ER CARDIOLOGY [place], [place] [address] (Wo rk) documented as of this encounter Visit Diagnoses Not on filedocumented in this encounter Care Teams Supervisor Stave Cutting Relationship Specialty Start Date End Date Lovely Vicente MD PCP - General 04/16/[address] [place] [address] documented as of this encounter
--- OUTSIDE RECORDS SUMMARY | 2022-02-06 13:36 | XMS_ITS | Encounter Summary ---
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 [facility] [place] [address] [place] [address] [phone] Social History Tobacco Use Types Packs/Day Years Used Date Former Smoker Cigarettes 3 5 Quit: 07/26/18 69 Smokeless Tobacco: Never Used Alcohol Use Standard Drinks/Week Comments No 0 (1 standard drink = 0.6 oz pure alcoho l) Sex Assigned at Date Recorded Not on file documented as of this encounter Last Filed Vital Signs Vital Sign Reading Time Taken Comments Blood Pressure 131/66 07/29/2017 10:46 AM EST Pulse 63 07/29/2017 10:46 AM EST Temperature 36.4 ??C (97.5 ??F) 07/29/2017 10:46 AM EST Respiratory Rate 18 07/29/2017 10:46 AM EST Oxygen Saturation 95% 07/29/2017 10:46 AM EST Inhaled Oxygen Concentration - - Weight 85.7 kg (189 lb) 07/29/2017 10:46 AM EST Height - - Body Mass Index 28.74 07/29/2017 10:13 AM EST documented in this encounter Discharge Instructions Discharge InstructionsMarquis Pathak - 07/29/2017 4:44 PM EST You were seen because you were having right toe, foot and calf pain. You had ultrasounds of your right leg and were found to have a non-occlusive clot in the mid calf and a stable appearing pseudoaneurysm in your right groin compared to previous studies. You were seen by Vascular Surgery who agreed that surgical intervention was not indicated at this time. You will be seen by the Pain Clinic as an outpatient on 07/30/17 for further management of your right toe and foot pain. Based on your INR of 2.2 today, you should stop Lovenox today and continue with warfarin 2.5mg daily. Your INR will be re-checked on Wednesday 08/02. Please seek immediate medical attention if your pain becomes worse despite taking your medications as prescribed. Please seek immediate attention if you lose sensation or motor function in the foot as well. Please be sure to follow up with Pain Clinic on 07/30. You are also scheduled to follow up with Vascular Surgery on 08/04. documented in this encounter Medications at Time [...] solutionIndications: Psoriasis documented as of this encounter ED Notes Mendy Cagle RN - 07/29/2017 12:35 PM EST To US for duplex study Marquis Pathak - 07/29/2017 11:31 AM EST Chief Complaint: Chief Complaint Patient presents with ??? Leg Swelling HPI: Gregory Fatima is a 72 y.o. 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 He states that the pain is severe and made worse with rest; the pain is relieved by weight bearing and walking. He states that his foot has been painful and gradually swelling since he was discharged home after his CABG. He initially presented to the ED on 07/20 with right toe and foot pain; at that time, he was found to have a subtherapeutic INR (1.5) in addition to a pseudoaneurysm of his right common femoral artery. He was started on anticoagulation at that time with enoxaparin with plans to bridge to warfarin. He again presented to the ED on 07/27 with ongoing pain in his toes and foot and was discharged home with additional pain medications - tramadol and oral dilaudid. Today he presents with ongoing pain in his right toes and forefoot with additional pain in his rightcalf. He also reports continued swelling of his right lower extremity up to the level of the right knee. He also reports noticing some patchy redness on the posterior aspect of his calf that has emerged over the past 2 days. ROS: Review of Systems Constitutional: Negative for chills, diaphoresis, fatigue and fever. HENT: Negative for congestion, sinus pain, sinus pressure, sneezing and sore throat. Eyes: Negative for photophobia and visual disturbance. Respiratory: Negative for cough, choking, chest tightness and shortness of breath. Cardiovascular: Negative for chest pain, palpitations and leg swelling. Gastrointestinal: Negative for abdominal pain, constipation, diarrhea, nausea and vomiting. Endocrine: Negative for polydipsia and polyuria. Genitourinary: Negative for dysuria, frequency and urgency. Musculoskeletal: Negative for arthralgias and myalgias. Skin: Negative for color change, pallor and rash. Neurological: Negative for dizziness, weakness, light-headedness and headaches. Psychiatric/Behavioral: Negative for behavioral problems and dysphoric mood. The patient is not nervous/anxious. Physical Exam: Patient Vitals for the past 8 hrs: BP Temp Temp src Pulse Resp SpO2 Weight 07/29/17 1046 131/66 36.4 ??C (97.5 ??F) Oral 63 18 95 % 85.7 kg (189 lb) Physical Exam Constitutional: He is oriented to person, place, and time. He appears well- developed. No distress. HENT: Head: Normocephalic and atraumatic. Eyes: EOM are normal. Pupils are equal, round, and reactive to light. Neck: Normal range of motion. Neck supple. No JVD present. Cardiovascular: Normal rate, normal heart sounds and intact distal pulses. Exam reveals no gallop and no friction rub. No murmur heard. Pulmonary/Chest: Effort normal and breath sounds normal. No respiratory distress. He has no wheezes.He has no rales. Abdominal: Soft. Bowel sounds are normal. He exhibits no distension. There is no tenderness. Neurological: He is alert and oriented to person, place, and time. Skin: Skin is warm and dry. He is not diaphoretic. Extremities: Right - Calf tenderness to palpation. There is a 3-4cm area of patchy erythema on the posterior aspect of the right calf. There is 1+ edema below right knee. Digits 1,2, and 3 dusky, pale,cool to touch. Small erythematous area on forefoot just proximal to the toes. Dorsalis pedis and post erior tibial pulses are present with doppler. Motor function is grossly intact and sensation is intact to crude touch. Left lower extremity is grossly normal. Imaging: Duplex for DVT, RLE 07/29/17 RIGHT: Non-occlusive, acute/subacute deep vein thrombosis in the proximal to mid calf (peroneal vein). No evidence of femoral-popliteal deep venous thrombosis. Cannot entirely exclude additional thrombus in the calf. Arterial Duplex, RLE 07/29/17 RIGHT: There is a small residual area of flow (PSA) at the neck measuring approximately 1.5 x 0.9 cm in diameter. The largest portion of the PSA remains thrombosed as noted on the previous exam. Patent common femoral artery, proximal profunda femoris and proximal superficial femoral arteries with normal triphasic Doppler waveforms and no evidence of stenosis. Patent common femoral vein with spontaneous, respirophasic Doppler waveforms and no evidence of an arterio-venous fistula. Procedures: None MDM: This patient was seen and discussed with Dr. Jiménez. 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 Arterial and venous duplex studies were ordered for the right lower extremity. The venous duplex was significant for nonocclusive thrombus in the peroneal vein. Arterial duplex was significant for a small area of residual flow through the pseudoaneurysm in the groin. Vascular surgery was consulted, and no surgical intervention was deemed to be necessary. Given that he had presented twice to the ED within the past 2 weeks without adequate pain control, the pain clinic was contacted and he was referred for outpatient evaluation. In discussion with the pain fellow, he was given a prescription for lidocaine patches to be used for pain relief until he is able to be seen in Pain clinic on 07/30/17. He is scheduled for follow-up with vascular surgery within the next week as well. He will continue with anticoagulation with warfarin for treatment of his DVT. ED Course: - A focused history and physical was gathered - CBC was normal; INR found to be therapeutic at 2.2 - Arterial duplex w/ small area of residual flow through thrombosed pseudoaneurysm in groin - Venous duplex with nonocclusive DVT in peroneal vein - Encouraged pt to continue with warfarin 2.5mg daily and stop enoxaparin dosing (this was also discussed with pt's PCP prior to discharge) - Patient discharged to home in good condition with return precautions and instructions for follow up with his PCP, Pain Clinic, and Vascular Surgery Marquis Pathak MD Resident 07/29/172026 Associated attestation - Tamiko Jiménez MD - 08/02/2017 7:35 AM EST ED ATTENDING ADDENDUM: The patient was seen in conjunction with Dr. Pathak, the resident physician. I have independently performed the shelton portions of the history and physical exam. I have reviewed all diagnostic studies personally including labs, imaging studies and EKG's. I have reviewed the patient's chart where indicated. I have also reviewed/obtained the allergies, medication, past medical history, and social history as documented in other parts of the chart. I have discussed the details of the case with the residentand agree with the all shelton portions of the H&P and plan as described in the resident note above. Vascular surgery came to see the patient we discussed the case in detail with them. They have offered the patient toe amputation but feel that he would do better with pain management and self demarcation of the vascular impairment. They anticipate that his pain will continue a minimum of 2 months at this level. documented in this encounter Miscellaneous Notes Consult Note - Steven Zhang MD - 07/29/2017 2:47 PM EST Patient Name: Gregory Fatima Patient Age: 72 y.o. Birthdate: 1945 Admit date: 07/29/2017 Attending Physician: Tamiko Jiménez MD Vascular Surgery Inpatient Consultation Date of Consultation: 07/29/2017 Consult Service: Vascular Surgery Place of Service: (X) Emergency Department ( ) Inpatient Unit ( ) Critical care Responsible Attending: Dr. Clement Reason for Consult: We are seeing Gregory Fatima at the request of Tamiko Pepe MD in consultation for ischemic right toes. I have reviewed the available records, interviewed and examined the patient. History of Present Illness: Gregory Fatima is a 72 y.o. male with history [...] addition to a pseudoaneurysm of his R CARDIOLOGY PHYSICIAN and bilateral anterior tibial artery occlusions. Patient was discharged to home on lovenox brdige to coumadin with the understanding that his toes would demarcate naturally or he could proceed with amputation of his toes. Patient has since been seen in the ED with ongoing pain for which he was dischar ged with additional analgesia. Patient was seen today by Cardiac surgery in follow up and was noted to have swollen R calf and ischemic appearing toes and was referred to the ED. Patient states the pain in his right toes is ongoing and he tends to keep his right leg in dependent position as much as possible. Denies fevers, chills. Otherwise feeling well. Review of Systems: A full review encompassing at least 10 organ systems including general, neuro, pulm, cardiac, GI, , MSK, Endo, and psych was negative other than that listed in the HPI. Past Medical History: Past Medical History: Diagnosis Date ??? BPH (benign prostatic hyperplasia) 11/28/2013 ??? Melanoma 2006 mid back ??? Urinary retention 04/05/2013 Past Surgical History: Past Surgical History: Procedure Laterality Date ??? PRG SOMATOSENSORY TEST, ANY/ALL PER. NERVES, TRUNK OR HEAD 03/28/2013 FACIAL NERVE MONITORING, SETUP performed by Manny Mcknight MD at [facility] MAIN OR ??? PRO CABG, ARTERIAL, SINGLE N/A 07/07/2017 @CABG, USING ARTERIAL GRAFT;SINGLE ARTERIAL GRAFT (WRVU 33.75) performed by Yuan Retana MD at [facility] MAIN OR ??? PRO CABG, ARTERY-VEIN, TWO N/A 07/07/2017 @CABG, TWO VENOUS GRAFTS & ARTERIAL GRAFT (WRVU 7.93) performed by Yuan Retana MD at [facility] MAIN OR ??? PRO COLONOSCOPY, REMFlash MOCK, SNARE 01/16/2014 COLONOSCOPY, POLYPECTOMY, REMOVAL LESION BY SNARE performed by Nohemi Jaimes MD at [facility] ENDOSCOPY ??? PRO ENDOSCOPY W/VIDEO-ASST VEIN HARVEST, CABG Right 07/07/2017 ENDOSCOPIC HARVEST VEIN(S) FOR CABG (WRVU 0.31) performed by Yuan Retana MD at [facility] MAIN OR ??? PRO THYROIDECTOMY 03/28/2013 THYROIDECTOMY, TOTAL OR COMPLETE performed by Manny Mcknight MD at [facility] MAIN OR Social History: Social History Social History ??? Marital status: Spouse name: N/A ??? Number of children: N/A ??? Years of education: N/A Social History Main Topics ??? Smoking status: Former Smoker Packs/day: 3.00 Years: 5.00 Types: Cigarettes Quit date: 07/26/1967 ??? Smokeless tobacco: Never Used ??? Alcohol use No ??? Drug use: No ??? Sexual activity: Not Currently Partners: Female Other Topics Concern ??? Do You Live Alone? No Social History Narrative Family History No family history on file. Home Medications: No current facility-administered medications on file prior to encounter. Current Outpatient Prescriptions on File Prior to Encounter Medication Sig Dispense Refill ??? clobetasol (TEMOVATE) 0.05 % Solution Apply 1 Application topically 2 times daily. 1 ??? HYDROmorphone (DILAUDID) 2 mg Tablet Take 0.5-1 tablets by mouth every 4 hours as needed for Pain. Take smallest dose needed as infrequently as possible 15 tablet 0 ??? traMADol (ULTRAM) 50 mg Tablet Take 1 tablet by mouth every 6 hours as needed for Pain. 20 tablet 0 ??? cephalexin (KEFLEX) 500 mg Capsule Take 1 capsule by mouth 4 times daily for 5 days. 20 capsule 0 ??? enoxaparin (LOVENOX) 100 mg/mL Syringe Inject 0.85 mLs subcutaneously 2 times daily. 10 Syringe 2 ??? warfarin (COUMADIN) 2.5 mg Tablet Take 1 tablet by mouth daily. ??? LANTUS SOLOSTAR pen Inject 20 Units subcutaneously nightly. 15 mL 1 ??? acetaminophen (TYLENOL) 500 [...] by mouth daily. 30 tablet 0 ??? lisinopril (PRINIVIL;ZESTRIL) 20 mg [...] mg Tablet Take 500 mg by mouth 2 times daily. ??? fish oil-omega-3 fatty acids 1,000 mg Capsule Take 2 g by mouth daily. ??? aspirin 81 mg EC tablet Take 81 mg by mouth every other day. ??? fluocinolone acetonide (SYNALAR) 0.01 % external solution Twice daily to less severe areas of psoriasis 60 mL 2 Allergies No Known Allergies Physical Exam: Temp: [36.4 ??C (97.5 ??F)] Heart Rate: [63] Resp: [18] BP: (131-139)/(66-69) SpO2: [95 %-100 %] Heart Rate from SPO2: -- General: NAD, resting comfortably. HEENT: normocephalic, atraumatic CVS: Regular rate, well healed sternal incision with small eschar Pulm: Clear bilaterally. Abd: Soft, non tender, non distended. Ext: RLE: 1+ edema to calf. Small groin mass with palpable femoral pulse. Skin warm and pink to the forefoot. Small area of mild erythema proximal to toes. D1- 3 dusky and pale. No tissue loss. DP and PT doppler signal present. LLE: Trace edema. Skin warm and pink. No tissue loss. Brisk capillary refill. DP and PT doppler signal present. Neuro: No focal deficits Labs: Recent Labs 07/29/17 1415 07/27/17 0053 WBC 12.4* 15.0* HGB 12.1* 10.3* HCT 38.1* 32.6* PLATELET 204 322 Recent Labs 07/27/17 0053 NA 137 K 5.1* CL 96* CO2 28 BUN 37* CREATININE 1.49 CALCIUM 8.6 Pertinent Radiographic/Diagnostic Results: None Vascular Labs: RLE DVT Duplex (07/29/2017): RIGHT: Non-occlusive thrombus in one of the paired peroneal veins in the upper and mid calf. Findings are suggestive of acute/subacute thrombus. Patent common femoral vein and popliteal vein with spontaneous, respirophasic Doppler waveforms that respond normally to augmentation maneuvers. The common femoral vein, saphenofemoral junction, femoral vein through the thigh and popliteal vein are fully compressible. Patent posterior tibial veins with no evidence of thrombus where visualized; cannot entirely exclude non-occlusive thrombus. Interpretation: RIGHT: Non-occlusive, acute/subacute deep vein thrombosis in the proximal to mid calf (peroneal vein). No evidence of femoral-popliteal deep venous thrombosis. Cannot entirely exclude additional thrombus in the calf. RLE Arterial Duplex (07/29/2017): Findings: Right ? PSV (cm/s) ??EDV ?? Common Femoral Artery, Proximal ?103 ?0 ?? Common Femoral Artery, Mid ?88 ?0 ?? Common femoral artery, Distal ? 89 ?0 ?? Profunda Femoris Artery, Proximal ? 80 ?0 ?? Superficial Femoral Artery, Proximal ?84 ?0 ?? Interpretation: RIGHT: There is a small residual area of flow (PSA) at the neck measuring approximately 1.5 x 0.9 cm in diameter. The largest portion of the PSA remains thrombosed as noted on the previous exam. Patent common femoral artery, proximal profunda femoris and proximal superficial femoral arteries with normal triphasic Doppler waveforms and no evidence of stenosis. Patent common femoral vein with spontaneous, respirophasic Doppler waveforms and no evidence of an arterio-venous fistula. Assessment: Gregory Fatima is a 72 y.o. 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 As previously outlined, the toes will demarcate on their own, necrose, and auto-amputate. When allowed to do this, more tissue is preserved than when primary amputation is performed. In some cases, though, infection or intractable pain push us to amputate. Long discussion held with patient and his - they would like to proceed with expectant management. Pain control is paramount to this to allow for the toes to demarcate. Would recommend APS consult and/or referral to outpatient pain clinic. Addition of gabapentin may also be beneficial. Regarding non-occlusive peroneal vein thrombosis suspect this is not acute. RLE edema likely secondary to dependent position in which the patient keeps his R foot for comfort. Patient already on therapeutic anticoagulation for Afib. Would recommend KIRSTIN compression and elevation of the RLE as tolerated. Will order surveillance DVT duplex to be performed prior to patient's upcoming follow up appointment with Dr. Clement. Recommendation: - No indication for intervention - Continue antiplatelet for blue toe syndrome - Pain control - APS consult - Follow up with Dr. Clement 08/04/2017 Consult service will continue to follow patient. X Recommendations are above, please page if further consultation required. Hank Zhang Vascular Surgery, PGY2 Pager #[phone] Associated attestation - Arik Clement MD - 08/09/2017 7:19 AM EST I have examined and interviewed patient, Agree with above note and plan. Pt with severe pain from embolization to toes. We discussed options of pain mngt vs amputation of toes. AT present pt wishes to continue conservative measures. Will follow ED Triage - Marie Lynne RN - 07/29/2017 10:48 AM EST Pt c/o right leg and foot pain and swelling x 3 weeks s/p cardiac cath. Bruising on right foot. Redness on posterior side of calf. Pt reports intermittent numbness/tingling in toes. documented in this encounter Plan of Treatment Upcoming Encounters Date Type Specialty Care Team Description 02/19/2022 Laboratory Appointment Lab 02/19/2022 Office Visit Cardiology Liz Poole PA [facility] Cardiology Dept [place], [place] [address] (Wo rk) 03/12/2022 Office Visit Cardiology Vitaliy Nobles MD [facility] CARDIOLOGY [place], [place] [address] (Wo rk) documented as of this encounter Procedures Procedure Name Priority Date/Time Associated Comments Diagnosis POCT GLUCOSE Routine 07/29/2017 2:28 PM Results f or this EST procedure are i n the results section. HEMOGRAM STAT 07/29/2017 2:15 PM Results f or this EST procedure are i n the results section. DIFFERENTIAL, STAT 07/29/2017 2:15 PM Results for this AUTOMATED EST procedure are i n the results section. D-DIMER, QUANTITATIVE STAT 07/29/2017 2:15 PM Results for this EST procedure are i n the results section. PROTHROMBIN TIME STAT 07/29/2017 2:15 PM Resul ts for this EST procedure are i n the results section. CBC (WITH DIFF) STAT 07/29/2017 2:15 PM EST DUPLEX FOR DVT, LEG, STAT 07/29/2017 11:50 Res ults for this UNILAT AM EST procedure are i n the results section. ARTERIAL DUPLEX LEG STAT 07/29/2017 11:50 Resu lts for this UNILA AM EST procedure are i n the results section. documented in this encounter Results Duplex for DVT, Leg, Unilat (08/04/2017 1:08 PM EST) Component Value Ref Test Analysis Performed At [facility] gist Range Method Time Signature VB Text Department: Vascular Surgery Lab VASCUBASE Report Patient: [id number] (GREGORY FATIMA) CPT: 22339 ICD10: I82.541 Referring Physician: TAMIKO JIMÉNEZ ?? Indications: f/u of R thromb us [...] Volume Laterality 08/04/2017 1:08 PM EST Tamiko Jiménez MD VASCULAR ORDERABLES Performing Organization Address City/State/ZIP Code Phon e Number VASCUBASE POCT Glucose (07/29/2017 2:28 PM EST) athologist Signature POC Glucose 128 65 - 199 [facility] mg/dL [facility] Comment: Supplemental ranges: <140 mg/dL before meals <180 mg/dL all other times of the day Specimen Anatomical Collection Method Collection Time Receive d Time (Source) Location / / Volume Laterality Blood specimen 07/29/2017 2:28 PM 018 2:28 (specimen) EST PM EST Tamiko Jiménez MD POINT OF CARE TEST ORDERABLE S Performing Organization Address City/[facility]/ZIP Code Phon e Number [address] (ABNORMAL) D-Dimer, Quantitative (07/29/2017 2:15 PM EST) [facility] Method Time Signature D-Dimer, Quant 1,699 (H) 0 - 500 [facility] FEU ng/ml [facility] Comment: The D-Dimer assay is used to aid in the diagnosis of deep vein thrombosis and pulmonary embolism. A normal D-Dimer res ult (less than 500 FEU ng/ml) has a negative predictive value of approximate ly 95% for the exclusion of acute PE and DVT when there is low to moderate pr etest probability. To use age adjusted cutoff: Age x 10ng/mL. Specimen Anatomical Collection Method Collection Time Receive d Time (Source) Location / / Volume Laterality Blood specimen Venous Draw / 07/29/2017 2:15 PM 2017 2:36 (specimen) Unknown EST PM EST Resulting Agency Comment Spec In Lab Tamiko Jiménez MD HEMATOLOGY ORDERABLES Performing Organization Address City/[facility]/[place] [address] (ABNORMAL) Differential, Automated (07/29/2017 2:15 PM EST) [facility] Method Time Signature Neutrophils % 82.5 % [facility] Neutr Abs (ANC) 10.21 (H) 1.70 - [facility] 6.10 [facility] x10(3)/[facility] L LABORATORY Lymphocytes % 7.1 % [facility] Lymphocytes Abs 0.9 0.9 - 3.2 [facility] x10(3)/[facility] LABORATORY Monocytes % 6.5 % [facility] Monocyte Abs 0.8 0.3 - 0.9 [facility] x10(3)/[facility] LABORATORY Eosinophils % 2.7 % [facility] Eosinophils Abs 0.3 0.0 - 0.4 [facility] x10(3)/[facility] LABORATORY Basophils % 0.6 % [facility] Basophils Abs 0.1 0.0 - 0.1 [facility] x10(3)/[facility] LABORATORY Immature Gran % 0.60 % [facility] Comment: Immature granulocytes(IG's)percentage an d absolute count will include metamyelocytes, myelocytes, and promyelo cytes. Blood smears from CBCs yielding IG's will be scanned manually for concor dance. If this scan disagrees with the automated IG or if promyelocytes are not ed, a manual differential will be performed. Melisa Gran Abs 0.08 (H) 0.00 - 0.04 x10(3)/[facility] LABORATORY Specimen Anatomical Collection Method Collection Time Receive d Time (Source) Location / / Volume Laterality Blood specimen 07/29/2017 2:15 PM 018 2:36 (specimen) EST PM EST Resulting Agency Comment Spec In Lab Tamiko Jiménez MD HEMATOLOGY ORDERABLES Performing Organization Address City/State/[place] [address] (ABNORMAL) Hemogram (07/29/2017 2:15 PM EST) Analysis Performed At Patho logist Time Signature WBC 12.4 (H) 4.0 - 9.5 [facility] x10(3)/[facility] LABORATORY RBC 4.17 (L) 4.58 - [facility] 5.54 [facility] x10(6)/[facility] LABORATORY Hemoglobin 12.1 (L) 13.7 [facility] 16.5 gm/dL [facility] LABORATORY Hematocrit 38.1 (L) 40.5 - [facility] 48.5 % [facility] LABORATORY MCV 91.4 82.[address] [facility] 93.1 [facility] LABORATORY MCH 29.0 27.5 - [facility] 32.1 pg [facility] LABORATORY MCHC 31.8 (L) 32.0 - [facility] 35.7 gm/dL [facility] LABORATORY Platelets 204 145 - 357 [facility] x10(3)/[facility] LABORATORY RDWSD 50.5 (H) 36.0 - [place] RYAN 45.0 [facility] LABORATORY RDWCV 15.3 (H) 11.4 - [facility] 13.8 % [facility] LABORATORY MPV 9.4 7.6 - 12.9 [facility] LABORATORY nRBC % Auto 0.0 % [facility] LABORATORY nRBC Abs Auto 0.000 0.000 - [facility] 0.000 [facility] x10(3)/[facility] LABORATORY Specimen Anatomical Collection Method Collection Time Receive d Time (Source) Location / / Volume Laterality Blood specimen 07/29/2017 2:15 PM 018 2:36 (specimen) EST PM EST Resulting Agency Comment Spec In Lab Tamiko Jiménez MD HEMATOLOGY ORDERABLES Performing Organization Address City/State/ZIP Code Phon e Number [address] (ABNORMAL) Prothrombin Time (07/29/2017 2:15 PM EST) P athologist Signature PT 24.4 (H) 11.8 - 14.0 [facility] LABORATORY INR 2.2 (H) 0.9 - 1.1 [facility] LABORATORY Comment: An INR <2.0 indicates [...] Location / / Volume Laterality Blood specimen 07/29/2017 2:15 PM 018 2:36 (specimen) EST PM EST Resulting Agency Comment Spec In Lab Tamiko Jiménez MD HEMATOLOGY ORDERABLES Performing Organization Address City/State/ZIP Code Phon e Number [address] Arterial Duplex Leg, Unil (07/29/2017 11:50 AM EST) Component Value Ref Test Analysis Performed At Patholo gist Range Method Time Signature VB Text Department: Vascular Surgery Lab VASCUBASE Report Patient: [id number] (GREGORY FATIMA) CPT: 23074 ICD10: Z09;I97.610 Referring Physician: TAMIKO JIMÉNEZ ?? Indications: 72 year old male with known RIGHT PSA s/p recen t CABG with worsening RIGHT foot pain, ? change in PSA ICD10 Diagnosis Code: Z09, I97.610 Findings: Right ? PSV (c m/s) ??EDV ?? Common Femoral Artery, Proximal ?103 ?0 ?? Common Femoral Artery, Mid ?88 ?0 ?? Common femoral artery, Distal ? 89 ?0 ?? Profunda Femoris Artery, Proximal ? 80 ? 0 ?? Superficial Femoral Artery, Proximal ?84 ?0 ?? Interpretation: RIGHT: There is a small residual area of flow (PSA) at the n aiyana measuring approximately 1.5 x 0.9 cm in diameter. The largest portion of the PSA remains thrombosed as noted on the previous exam. Patent common femoral artery, proximal profunda femoris and proximal superficial femoral arteries with normal triphasic Doppler waveforms and no evidence of stenosis. Patent common femoral vein with spontaneous, respiroph asic Doppler waveforms and no evidence of an arterio-venous fistula. Electronically Signed by: LIA STERN on 2017-07-29 02:09:00 PM VB Text End of Report VASCUBASE Report Specimen (Source) Anatomical Collection Method Collection Time Re ceived Time Location / / Volume Laterality 07/29/2017 11:50 AM EST Tamiko Jiménez MD VASCULAR ORDERABLES Performing Organization Address City/State/ZIP Code Phon e Number [facility] Duplex for DVT, Leg, Unilat (07/29/2017 11:50 AM EST) Component Value Ref Test Analysis Performed At [facility] Method Time Signature VB Text Department: Vascular Surgery Lab VASCUBASE Report Patient: [id number] (GREGORY FATIMA) CPT: 35522 ICD10: I82.441 Referring Physician: TAMIKO JIMÉNEZ ?? Indications: 72 year old male with RIGHT leg swelling and ca lf tenderness, history of recent CABG and RIGHT pseudoaneurysm, patient is on enoxaparin/warfarin (currently subtherapeutic), ? DVT ICD10 Diagnosis Code: I82.441 RIGHT: Non-occlusive thrombus in one of the paired peroneal veins in the upper and mid calf. Findings are suggestive of acute/subacute thro mbus. Patent common femoral vein and popliteal vein wi th spontaneous, respirophasic Doppler waveforms that respond normally to augme ntation maneuvers. The common femoral vein, saphenofemoral junction, femoral vein through the thigh and popliteal vein are fully compressible. Patent posterio r tibial veins with no evidence of thrombus where visualized; cannot entirely exclude non-occlusive thrombus. Interpretation: RIGHT: Non-occlusive, acute/subacute deep vein thrombo sis in the proximal to mid calf (peroneal vein). No evidence of femoral-popliteal d eep venous thrombosis. Cannot entirely exclude additional thrombus in t he calf. Notification: Marquis Pathak MD (pager #[phone]) was notif ied of the preliminary findings. Comparison: ??No previous study in our vascular lab da tabase for comparison. 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 Scheduled Medication Order 07/27/2017 07/28/2017 07/29/2017 HYDROmorphone (DILAUDID) injection 1 mg (COMPLETED) 1418 (Given - Provider: Mendy Cagle RN) 1 mg, Intravenous, ONCE, 1 dose, Ivis 07/29/17 at 1212, STAT documented in this encounter Care Teams Housecleaner Floor Relationship Specialty Start Date End Date Lovely Vicente MD PCP - General 04/16/15 [facility] [address] [place] [address] documented as of this encounter
--- OUTSIDE RECORDS SUMMARY | 2022-02-06 13:36 | XMS_ITS | Encounter Summary ---
:1945 Author Organization [facility] [place] [address] Care Team Providers Name Role Phone Lovely Vicente MD Primary Care Provider Reason for Visit Reason Comments Follow-up Encounter Details Date Type Department Care Team Description 07/29/2017 Office Visit Cardiac Surgery at [facility] Yuan Retana MD S/P CABG x [address] [facility] [place] [address] CARDIOTHORACIC SURGERY [phone] [place], [place] [address] (Wo rk) Social History Tobacco [...] Sign Reading Time Taken Comments Blood Pressure 139/69 07/29/2017 10:13 AM EST Pulse 63 07/29/2017 10:13 AM EST Temperature - - Respiratory Rate - - Oxygen Saturation 100% 07/29/2017 10:13 AM EST Inhaled Oxygen Concentration - - Weight 85.7 kg (189 lb) 07/29/2017 10:13 AM EST Height 172.7 cm (5' 8) 07/29/2017 10:13 AM EST Body Mass Index 28.74 07/29/2017 10:13 AM EST documented in this encounter Progress Notes Yuan Retana MD - 07/29/2017 10:20 AM EST To: MD Lovely Steven MD Re: Don Fatima ( 1945) Dear Garland and Lovely, We had an opportunity to see Mr. Fatima and his today as a wound check for some sternal drainage he had during his hospitalization. He presents to the office denying effort dyspnea or angina. He has tremendous rest pain in his right lower extremity for which he was recently discharged from the hospital . On examination he has a blood pressure 139/69, his heart rates in the 60s and sinus by palpation, His midline sternal wound has healed well, the area of drainage has is now dry eschar at this point without further drainage. There is no surrounding erythema, the underlying sternum is firm to palpation there is no click. His right lower extremity has some swelling in the forefoot with clearly ischemic toes and band of surrounding erythema. In summary, Mr. Fatima is stable following his bypass surgery for congestive heart failure. Howeverhe has a threatened limb with rest pain. He is being brought over to the emergency room for evaluation by vascular surgery. Yuan Retana MD [phone] documented in this encounter Plan of Treatment Upcoming Encounters Date Type Specialty Care Team Description 02/19/2022 Laboratory Appointment Lab 02/19/2022 Office Visit Cardiology Liz Poole PA [facility] Cardiology Dept [place], [place] [address] (Wo rk) 03/12/2022 Office Visit Cardiology Vitaliy Nobles MD [facility] CARDIOLOGY [place], [place] [address] (Wo rk) documented as of this encounter Visit Diagnoses Diagnosis S/P CABG x 3 Postsurgical aortocoronary bypass status documented in this encounter Care Teams Photovoltaic Installer Relationship Specialty Start Date End Date Lovely Vicente MD PCP - General 9/22/[address] [place] [address] documented as of this encounter
--- OUTSIDE RECORDS SUMMARY | 2022-02-06 13:36 | XMS_ITS | Encounter Summary ---
:1945 Author Organization [facility] [place] [address] Care Team Providers Name Role Phone Lovely Vicente MD Primary Care Provider Reason for Visit Reason Onset Date Comments Other 07/22/2017 lovenox bridge Encounter Details Date Type Department Care Team Description 07/22/2017 Telephone Cardiology at [facility] Court Cadena RN Other (lovenox bridge) [place] [address] Social History Tobacco Use Types Packs/Day Years Used Date Former Smoker Cigarettes 3 5 Quit: 07/26/18 69 Smokeless Tobacco: Never Used Alcohol Use Standard Drinks/Week Comments No 0 (1 standard drink = 0.6 oz pure alcoho l) Sex Assigned at Date Recorded Not on file documented as of this encounter Miscellaneous Notes Telephone Encounter - Court Cadena RN - 07/22/2017 4:49 PM EST VAMSI Del Castillo, at [facility], called earlier today with a question re: lovenox bridge for this patient who was recently discharged from [facility] r/t a blood clot. Discharge note faxed to [facility] (fax# [phone], Ph#: [phone]) which contains instructions r/t lovenox bridge as follows: Anticoagulation: on lovenox bridge to therapeutic coumadin for AFib. Goal INR 2-3. At discharge INR=1.5. The lovenox injections can stop when INR >2, coumadin will continue indefinitely. documented in this encounter Plan of Treatment Upcoming Encounters Date Type Specialty Care Team Description 02/19/2022 Laboratory Appointment Lab 02/19/2022 Office Visit Cardiology Liz Poole PA [facility] er Cardiology Dept [place], [place] [address] (Wo rk) 03/12/2022 Office Visit Cardiology Vitaliy Nobles MD [facility] CARDIOLOGY [place], [place] [address] (Wo rk) documented as of this encounter Visit Diagnoses Not on filedocumented in this encounter Care Teams Dispute Resolution Analyst Relationship Specialty Start Date End Date Lovely Vicente MD PCP - General 04/16/[address] [place] [address] documented as of this encounter
--- OUTSIDE RECORDS SUMMARY | 2022-02-06 13:36 | XMS_ITS | Encounter Summary ---
:1945 Author Organization [facility] Address [address] [place] [address] Care Team Providers Name Role Phone Lovely Vicente MD Primary Care Provider Encounter Details Date Type Department Care Team Description 07/29/2017 Transcribe Orders Laboratory Lovely Vicente, Coronary artery rupture; [facility] Ischemic cardiomyopathy; [facility] [address] Atherosclerosis of [place] co ronary artery, angina presence unspecified, unspecified whether [place] or transplanted heart; [place], [place] [address] Essential hypertension, malignant; [address] [place], [place] 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, unspecified fpc insulin use status [phone] [id number] Social History Tobacco Use Types Packs/Day Years [...] Visit Cardiology Liz Poole PA [facility] er Cardiology Dept [place], [place] [address] (Wo rk) 03/12/2022 Office Visit Cardiology Vitaliy Nobles MD [facility] ER CARDIOLOGY [place] [address] (Wo rk) Scheduled Orders Name Type Priority Associated Diagnoses Order S chedule Lab Use Only, Fax Lab Routine Coronary arter y rupture Expected: 07/29/2017 Request Ischemic cardiom yopathy (Approximate), Atherosclerosis of [place] Ex jose: 07/29/2018 coronary artery, angina presence unspecified, unspecified whether [place] or transplanted heart Essential hypertension, malignant documented as of this encounter Results Uric acid (08/04/2017 12:55 PM EST) athologist Signature Uric Acid 7.1 3.5 - 8.5 [facility] RYAN mg/dL [facility] LABORATORY Specimen Anatomical Collection Method Collection Time Receive d Time (Source) Location / / Volume Laterality Blood specimen 08/04/2017 12:55 8 1:01 (specimen) PM EST PM EST Resulting Agency Comment Spec In Lab Lovely Vicente MD CHEMISTRY ORDERABLES Performing Organization Address City/State/[place] [address] (ABNORMAL) Hemogram (08/04/2017 12:55 PM EST) Analysis Performed At Patho logist Time Signature WBC 15.8 (H) 4.0 - 9.5 [place] RY[facility] x10(3)/[facility] LABORATORY RBC 3.48 (L) 4.58 - [place] RY[address] [facility] x10(6)/[facility] LABORATORY Hemoglobin 9.9 (L) 13.7 - [place] RYAN 16.5 gm/dL [facility] LABORATORY Hematocrit 31.4 (L) 40.5 - [place] [facility] 48.5 % [facility] LABORATORY MCV 90.2 82.9 - [place] [facility] 93.1 fL [facility] LABORATORY MCH 28.4 27.5 - [place] [facility] 32.1 pg [facility] LABORATORY MCHC 31.5 (L) 32.0 - [place] [facility] 35.7 gm/dL [facility] LABORATORY Platelets 310 145 - 357 [place] RY[facility] x10(3)/[facility] LABORATORY RDWSD 51.8 (H) 36.0 - [facility] 45.0 [facility] LABORATORY RDWCV 15.8 (H) 11.4 - [facility] 13.8 % [facility] LABORATORY MPV 8.9 7.6 - 12.9 [facility] LABORATORY nRBC % Auto 0.0 % [facility] LABORATORY nRBC Abs Auto 0.000 0.000 - [facility] 0.[address] [facility] x10(3)/[facility] LABORATORY Specimen Anatomical Collection Method Collection Time Receive d Time (Source) Location / / Volume Laterality Blood specimen 08/04/2017 12:55 8 1:01 (specimen) PM EST PM EST Resulting Agency Comment Spec In Lab Lovely Vicente MD HEMATOLOGY ORDERABLES Performing Organization Address City/State/[place] [address] (ABNORMAL) Comprehensive metabolic panel (non-fasting) (08/04/2017 12:55 PM EST) P athologist Signature Glucose Lvl 208 (H) 65 - 199 [facility] mg/dL [facility] LABORATORY Comment: Diabetes: >=200 mg/dL plus symp toms BUN 32 (H) 10 - 20 mg/dL [facility] LABORATORY Creatinine 1.58 (H) 0.80 - 1.50 mg/dL [facility] LABORATORY Sodium 136 135 - 145 mmol/L [facility] LABORATORY Potassium 5.5 (H) 3.5 - 5.0 mmol/L [facility] LABORATORY Comment: Please note: ??Patients with WBC >100,00 0 may have falsely elevated Potassium levels. ??For accurate Potassium quantif ication in these patients send serum separator tube (gold top) for subsequent determinations. ??Contact the Clinical Chemistry Laboratory if there are any qu estions. Chloride 97 (L) 98 - 107 mmol/L [facility] LABORATORY CO2 25 22 - 31 mmol/L [facility] LABORATORY Anion Gap 14 5 - 15 mmol/L [facility] LABORATORY Calcium 8.6 8.5 - 10.5 mg/dL [facility] LABORATORY Total Protein 6.9 6.1 - 8.0 gm/dL [facility] LABORATORY Albumin 3.4 3.2 - 5.2 gm/dL [facility] LABORATORY AST 20 0 - 39 unit/L [facility] LABORATORY ALT 21 0 - 55 unit/L [facility] LABORATORY Alk Phos 93 40 - 120 unit/L [facility] LABORATORY Total Bilirubin 0.4 0.2 - 1.3 mg/dL [facility] LABORATORY Estimated GFR 43 (L) >=60 [facility] LABORATORY Comment: The reported eGFR should be multiplied b y 1.2 for patients. The MDRD is not an appropriate measure o f renal function for patients with body mass extremes or in patients with acute kidney failure. http://Naviswiss/DHnkdep http://Naviswiss/DHMCnkf Specimen Anatomical Collection Method Collection Time Receive d Time (Source) Location / / Volume Laterality Blood specimen 08/04/2017 12:55 8 1:01 (specimen) PM EST PM EST Resulting Agency Comment Spec In Lab Lovely Vicente MD CHEMISTRY ORDERABLES Performing Organization Address City/State/[place] [address] (ABNORMAL) Hemoglobin A1c (08/04/2017 12:55 PM EST) Analysis Performed At Patho logist Time Signature Hemoglobin A1C 6.2 (H) 4.3 - 5.6 [facility] LABORATORY Comment: Reference Range: 4.3 [...] S67-74 Est Avg Gluc See note mg/dL [facility] Comment: Estimated Average Glucose [...] with hemoglobinopathies. Additional resources are available on [facility] ADA website. Macario HAMMOND, Ruthann J, Deysi R, et al. ??Tr anslating the A1C assay into estimated average glucose values. ??Diabetes Care 2008:31(8):0890-5599. Specimen Anatomical Collection Method Collection Time Receive d Time (Source) Location / / Volume Laterality Blood specimen 08/04/2017 12:55 8 1:01 (specimen) PM EST PM EST Resulting Agency Comment Spec In Lab Lovely Vicente MD CHEMISTRY ORDERABLES Performing Organization Address City/State/[place] [address] (ABNORMAL) Prothrombin Time (08/04/2017 12:55 PM EST) P athologist Signature PT 35.4 (H) 11.8 - 14.0 [facility] LABORATORY INR 3.5 (H) 0.9 - 1.1 [facility] LABORATORY Comment: An INR <2.0 indicates [...] Organization Address City/State/[place] [address] documented in this encounter Visit Diagnoses Diagnosis Coronary artery rupture Acute myocardial infarction, unspecified site, episode of care unspecified Ischemic cardiomyopathy Other specified forms of chronic ischemi c heart disease Atherosclerosis of mi[place] coronary arter y, angina presence unspecified, unspecified whether [place] or transplanted heart Essential hypertension, malignant Diabetes mellitus due to underlying cond ition with diabetic nephropathy, unspecified 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
--- OUTSIDE RECORDS SUMMARY | 2022-02-06 13:36 | XMS_ITS | Encounter Summary ---
:1945 [place] [address] Care Team Providers Name Role Phone Lovely Vicente MD Primary Care Provider Encounter Details Date Type Department Care Team Description 07/16/2017 Telephone Endocrinology at [facility] C Manuela Holliday, [facility] [place] [address] ENDOCRINOLOGY DEPT [phone] [place], [place] [address] (Wo rk) Social History Tobacco Use Types Packs/Day Years Used Date Former Smoker Cigarettes 3 5 Quit: 07/26/18 69 Smokeless Tobacco: Never Used Alcohol Use Standard Drinks/Week Comments No 0 (1 standard drink = 0.6 oz pure alcoho l) Sex Assigned at Date Recorded Not on file documented as of this encounter Miscellaneous Notes Telephone Encounter - Manuela Holliday, - 07/16/2017 9:55 PM EST Endocrine Telephone call I got a call regarding multiple episodes of hypoglycemia in this patient. He was recently dischargedafter being seen by the DM management team. He had instructions to take Lantus 30 units daily and pre-meal Novolog 15, 18, 20 depending on meal size (small, medium, large meal size respectively). Yesterday his noted multiple BG in the 70s and reduced his Lantus dose to 28. Today she further reduced it to 24 units again because of hypoglycemia. She also reduced his mealtime Novolog by giving him 10 units with a medium size meal for lunch. She now calls because he BG was 59 after this 10 unit dose and she was concerned. The patient has had a snack and his BG is now >90 on the check while I was on the phone. I encouraged to keep reducing his Insulin if his BG are consistently running low. I told her that a reasonable start would be Lantus 20 units tomorrow (since he got 24 today and is still low). She should also reduce meal-time Insulin given BG 59 after 10 units Novlog (which was already a conservative dose at her discretion). I suggested 5, 7, 9 for small, medium, large meal size. She is empowered to reduce this lower if needed. I told her to feel free to call with more questions or concerns. It is most important to avoid low blood glucose in this patient which she was aware of. Manuela Holliday DO 10:01 PM 07/16/17 documented in this encounter Plan of Treatment Upcoming Encounters Date Type Specialty Care Team Description 02/19/2022 Laboratory Appointment Lab 02/19/2022 Office Visit Cardiology Liz Poole PA [facility] Cardiology [place], [place] [address] (Wo rk) 03/12/2022 Office Visit Cardiology Vitaliy Nobles MD [facility] ER CARDIOLOGY [place], [place] [address] (Wo rk) documented as of this encounter Visit Diagnoses Not on filedocumented in this encounter Care Teams Stain Sprayer Relationship Specialty Start Date End Date Lovely Vicente MD PCP - General 04/16/[address] [place] [address] documented as of this encounter
--- OUTSIDE RECORDS SUMMARY | 2022-02-06 13:36 | XMS_ITS | Encounter Summary ---
:1945 Author Organization [facility] [place] [address] Care Team Providers Name Role Phone Lovely Vicente MD Primary Care Provider Reason for Visit Reason Comments Foot Pain Auth/Cert Specialty Diagnoses / Procedures Referred By Contact Refer red To Contact Diagnoses Ischemic foot Procedures NAYE OBSVO Referral ID Status Reason Start Date Expiration Date Visits Requ ested Visits Authorized [id number] 1 1 Encounter Details Date Type Department Care Team Description 07/27/2017 Emergency 1 [facility] [place] Lokesh Swenson MD [facility] [address] [place] [address] Femoral artery pseudo-aneurysm, right; [facility] Tam Bauman MD [facility] [place] [address] [place] [id number] Social History Tobacco Use Types Packs/Day Years Used Date Former Smoker Cigarettes 3 5 Quit: 07/26/18 68 Smokeless Tobacco: Never Used Alcohol Use Standard Drinks/Week Comments No 0 (1 standard drink = 0.6 oz pure alcoho l) Sex Assigned at Date Recorded Not on file documented as of this encounter Last Filed Vital Signs Vital Sign Reading Time Taken Comments Blood Pressure 138/84 07/27/2017 12:24 PM EST Pulse 66 07/27/2017 12:24 PM EST Temperature 36.7 ??C (98.1 ??F) 07/27/2017 12:24 PM EST Respiratory Rate 16 07/27/2017 12:24 PM EST Oxygen Saturation 97% 07/27/2017 12:24 PM EST Inhaled Oxygen Concentration - - Weight 83.9 kg (185 lb) 07/27/2017 3:47 AM EST Height 172.7 cm (5' 8) 07/27/2017 4:29 AM EST per pt Body Mass Index 28.13 07/27/2017 3:47 AM EST documented in this encounter Discharge Summaries Carlos Alberto Rosales MD - 07/27/2017 1:36 PM EST Discharge Summary Patient Name: Gregory Fatima Patient Age: 72 y.o. Language: Zambian Race: White Ethnicity: Not nor Admit date: 07/27/2017 Discharge date and time: 07/27/2017 3:15 PM Attending Physician: Tam Bauman MD Discharge Physician: CARLOS ALBERTO ROSALES MD Follow-up Recommendations for Providers: ?? Titrate pain medications. Tramadol was provided for additional PRN pain relief. ?? Discharged on Lovenox bridge to warfarin - goal INR 2-3 - patient has lovenox and warfarin at home. Recommended to continue 2.5 mg / day warfarin, home health to do INR checks ?? Supplemental potassium was stopped as was elevated at 5.1 - follow lytes and restart if needed ?? Keflex x [address] surgery for chest wound drainage - they will follow up Inpatient Provider Contact Information: For questions regarding this document or issues relating to this hospitalization on the Medical Service, please contact your inpatient physician through the [facility]igh [employer] . Issues after hours and on weekends will be handled by the Hospitalist staff on-call. Discharge Diagnoses (Hospital Problems) and Secondary Diagnoses (Chronic Problems): Active Hospital Problems Diagnosis ??? Ischemic foot ??? ASHD (arteriosclerotic heart disease) ??? Cardiomyopathy, ischemic ??? Gastroesophageal reflux disease ??? Critical lower limb ischemia ??? BPH (benign prostatic hyperplasia) ??? MARIA VICTORIA (obstructive sleep apnea) on CPAP ??? Seborrheic psoriasis- scalp and ingtergluteal area Resolved Hospital Problems Diagnosis Date Resolved No resolved problems to display. Active Non-Hospital Problems Diagnosis ??? 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 STEMI (ST elevation myocardial infarction) ??? Dependence on continuous positive airway pressure ventilation ??? Hearing impaired ??? Hyperlipidemia ??? Hypomagnesemia ??? Peripheral neuropathy ??? Atypical nevus of abdominal wall ??? Urinary retention ??? Goiter ??? Skin lesion of chest wall ??? Melanoma Operations/Major Procedures: Operations: Other Major Procedures: none History of Presentation: 72 y.o.??male??with PMH ASCVD s/p CABG (07/07/17), MARIA VICTORIA on CPAP QHS, HTN, HLD, DM2, with recent hospitalization for RLE critical limb ischemia, who presented to [facility] with worsening RLE pain. Pt post-op course after CABG was significant for paroxysmal Afib, and he was started on Coumadin given elevated [id number] score. He presented 2 weeks following that, on 07/20, with RLE pain/pallor andwas found to have critical limb ischemia in setting of subtherapeutic INR, pseudoaneurysm Rt COUNT ROOM CLERK and occlusion b/l ant tibial arteries. He was admitted at that time to vascular surgery service, and there was found to be no role for vascular intervention. He was initially placed on Hep gtt, and discharged subsequently on home Coumadin with Lovenox bridge. He reports being in usual state of health following discharge till 2-3 days prior to presentation, and presented today due to worsening pain and persistent discoloration. Of note, per chart review, pt has been off Lovenox since 07/23 due to therapeutic INR of 2.7. However in ED today, INR noted to be 1.6. ROS negative headache, light-headedness, dizziness, chest pain, shortness of breath, fever, chills. He denied any urinary sx, GI sx, or any increased difficulty ambulating due to pain. He was admitted to hospital medicine for observation for pain control. Hospital Course: ?? Observation status on medicine ?? Given IV then PO dilaudid, equivalent of about 2 mg every 6 hrs, tramadol added to PRN regimen ?? R arterial duplex showed no change since last last exam ?? Vascular surgery consult recommended pain control and bridge to therapeutic INR ?? Will follow up with Vascular clinic 08/04 Vital Signs at Discharge: BP: 138/84, Heart Rate: 66, Temp: 36.7 ??C (98.1 ??F), Resp: 16, Height: 172.7 cm (5' 8) (per pt) (07/27/17428) Weight: 83.9 kg (185 lb) (07/27/17346) Functional and Cognitive Status: AOx3 Important Studies and Lab Data: Labs: Recent Labs 07/27/175207/20/17 10307/10/17 0428 WBC 15.0* 17.0* 12.2* HGB 10.3* 10.8* 9.8* PLATELET 322 211 135* Recent Labs 07/27/175207/20/1722407/14/17 0446 07/13/17 0426 NA 137 134* -- 143 K 5.1* Not Perf 4.3 3.7 CL 96* 92* -- 104 CO2 28 29 -- 26 BUN 37* 35* -- 25* CREATININE 1.49 1.51* -- 1.19 GLUCOSE 95 187 -- 95 No results for input(s): BILITOT, BILIDIR, ALKPHOS, ALT, AST in the last 7068 hours. Recent Labs 07/27/175207/20/17 1034 07/20/1722407/14/17 0446 07/08/17 0840 PT 19.1* -- 17.7* 26.4* < > 15.6* PTT -- 79* 36* -- -- 33 INR 1.6* -- 1.5* 2.4* < > 1.3* < > = values in this interval not displayed. Recent Labs 07/27/175207/20/1722407/13/17 0426 07/07/17 0515 07/06/17 0810 12/11/17 2020 CALCIUM 8.6 8.6 7.7* < > 8.6 8.1* 8.1* MAGNESIUM -- -- -- -- 0.94 0.84 0.68* < > = values in this interval not displayed. No results for input(s): TSH in the last 7068 hours. Invalid input(s): [id number] Recent Labs 07/08/17 0400 07/07/17 0515 07/06/17 1940 TROPONINT 1.88* 2.07* 2.27* CK 413* 88 93 No results for input(s): LACTATE, ALBUMIN, CORTISOL, PREALBUMIN in the last 7068 hours. Invalid input(s): CDIFF Right arterial duplex 07/27/17 RIGHT: Patent common femoral artery and proximal superficial femoral artery with normal, triphasic Doppler waveforms. A thrombosed pseudoaneurysm was visualized in the groin measuring approximately 2.3 cm X 3.9 cm X 3.3 cm. No active arterial flow identified within the pseudoaneurysm. No identifiable change when compared to the previous exam done 07/20/2017. ?? Ct Angiogram Aorta Lower Extremity Runoff 07/20/2017 1. RIGHT common femoral artery small pseudoaneurysm with 3 cm overlying hematoma. 2. Predominantly occluded bilateral anterior tibial arteries, with diminished flow within the RIGHT dorsalis pedis. 3. Predominantly nonopacified bilateral posterior tibial arteries. 4. Heterogeneous splenic enhancement may be sequela phase of contrast, although there are large wedge-shaped areas of nonopacification; splenic infarcts not excluded. ?? JULIAN B/L LE 07/20/2017: ?? RIGHT: No significant lower extremity arterial occlusive disease identified at rest to the distal calf. No obtainable right great toe pressure indicates severe occlusive disease in the ankle/foot/toe regions. LEFT: No significant lower extremity arterial occlusive disease identified at rest to the distal calf. Normal ankle/brachial pressure ratios and ankle Doppler waveforms. Toe/brachial index substantially lower than ankle/brachial index indicates presence of moderate arterial occlusive disease in the foot. Comparison: ??No previous study in our vascular lab database for comparison. ?? AVELINO 07/08/2017: 1. Intraoperative AVELINO performed at the request of Dr. Mike for the diagnosis and evaluation ofhemodynamics, overall cardiac function, and valvular pathologies as [...] no evidence of aotic dissection was imaged Pending Studies and Lab Data: None Discharge Conditions/Prognosis: Pain Discharge to: home Updated Allergies/ADRs: No Known Allergies Immunizations Given this Hospitalization: Immunization History Administered Date(s) Administered ??? Influenza PF, Split 03/29/2013 ??? Influenza Vaccine, Whole 06/14/2006 Discharge Medications: Your Medications New Medications Dose Details cephalexin 500 mg Cap Commonly known as: KEFLEX Take 1 capsule by mouth 4 times daily for 5 days. 500 mg Quantity: 20 capsule Refills: 0 traMADol 50 mg Tab Commonly known as: ULTRAM Take 1 tablet by mouth every 6 hours as needed for Pain. 50 mg Quantity: 20 tablet Refills: 0 Continued medications with new dosing Dose Details HYDROmorphone 2 mg Tab Commonly known as: DILAUDID Take 0.5-1 tablets by mouth every 4 hours as needed for Pain. Take smallest dose needed as infrequently as possible What changed: - how much to take - additional instructions 1-2 mg Quantity: 15 tablet Refills: 0 Continued medications, unchanged Dose [...] PEN NEEDLE UF MINI 31 gauge x 16 Ndle 1 each by Other route 4 times daily. Generic drug: insulin needles (disposable) 1 each Refills: 0 clobetasol 0.05 % Soln Commonly known as: TEMOVATE Apply 1 Application topically 2 times daily. 1 Application Refills: 1 enoxaparin 100 mg/mL Syrg Commonly known as: LOVENOX Inject 0.85 mLs subcutaneously 2 times daily. 1 mg/kg/dose Quantity: 10 Syringe Refills: 2 fish oil-omega-3 fatty acids 1,000 mg Cap Take 2 g by mouth daily. 2 g Refills: 0 fluocinolone acetonide 0.01 % Soln Commonly known as: SYNALAR Twice daily to less severe areas of psoriasis Quantity: 60 mL Refills: 2 furosemide 20 mg Tab Commonly known as: LASIX Take 1 tablet by mouth daily. 20 mg Quantity: 30 tablet Refills: 0 insulin lispro Inpn Commonly known as: humaLOG KwikPen Inject 15-20 Units subcutaneously 3 times daily (with meals). 15-20 Units Quantity: 10 mL Refills: 1 LANTUS SOLOSTAR 100 unit/mL (3 mL) pen Inject 20 Units subcutaneously nightly. Generic drug: insulin glargine 20 Units Quantity: 15 mL Refills: 1 levothyroxine 175 mcg Tab [...] daily. 2.5 mg Refills: 0 STOPPED Medications potassium chloride 10 mEq Tbsr Commonly known as: K-DUR/KLOR-CON Smoking Status at Discharge: History Smoking Status ??? Former Smoker ??? Packs/day: 3.00 ??? Years: 5.00 ??? Types: Cigarettes ??? Quit date: 07/26/1967 Smokeless Tobacco ??? Never Used Instructions Given to Patient at Discharge: Patient Instructions Instruction after leaving the hospital Why you were hospitalized: pain of right foot and evaluation of blood flow Call your doctor or seek medical attention if you develop the following: worsening foot pain Specific instructions related to your condition: 5. Take Lovenox that you have at home twice daily - start this evening 6. Take warfarin every evening. Take a dose today 2.5 mg as you've been doing. Home health will check your INR and give instructions. Goal INR 2-3 (it was low at 1.6 here at [facility]) 7. Use the tramadol if dilaudid or tylenol is not working 8. Stop taking the potassium supplement - your blood potassium level was elevated. Ask your doctors at future visits if this should be restarted. 9. Antibiotic for 5 days recommended by cardiothoracic surgery for chest wound drainage Follow-Up Appointments Vascular surgery as previously schedule Your Inpatient Doctor(s) at [facility]: CARLOS ALBERTO ROSALES MD General Instructions None Future Appointments and Orders Future Appointments Provider Department Dept Phone 07/30/2017 8:30 AM OSWALDO, THREE L Lab 3L [facility] [phone] 07/30/2017 9:40 AM Danette Maxwell APRN Cardiology at [place] [phone] 08/04/2017 1:00 PM Daniele Mooney [place] V[facility] Lab at [place] [phone] 08/04/2017 2:15 PM Arik Clement MD Vascular Surgery at [place] [phone] 08/11/2017 10:00 AM [facility] ROOM 2 XRay at [place] [phone] Please go to [facility] 3T ([place] Location). 08/11/2017 11:00 AM Yuan Retana MD Cardiac Surgery at [place] [phone] 09/07/2017 3:00 PM LAB, THREE L Lab 3L [facility] [phone] 09/07/2017 4:00 PM Luz Prescott MD Endocrinology at [place] [phone] Discharge References/Attachments None documented in this encounter Discharge Instructions Patient InstructionsCarlos Alberto Rosales MD - 07/27/2017 1:49 PM EST Instruction after leaving the hospital Why you were hospitalized: pain of right foot and evaluation of blood flow Call your doctor or seek medical attention if you develop the following: worsening foot pain Specific instructions related to your condition: 1. Take Lovenox that you have at home twice daily - start this evening 2. Take warfarin every evening. Take a dose today 2.5 mg as you've been doing. Home health will check your INR and give instructions. Goal INR 2-3 (it was low at 1.6 here at [facility]) 3. Use the tramadol if dilaudid or tylenol is not working 4. Stop taking the potassium supplement - your blood potassium level was elevated. Ask your doctors at future visits if this should be restarted. 5. Antibiotic for 5 days recommended by cardiothoracic surgery for chest wound drainage Follow-Up Appointments Vascular surgery as previously schedule Your Inpatient Doctor(s) at [facility]: CARLOS ALBERTO ROSALES MD documented in this encounter Medications at Time [...] 4 times daily. 10/08 Needle cephalexin (KEFLEX) Take 1 capsule by 20 [...] documented as of this encounter Progress Notes Isidro Lopez PA - 07/27/2017 3:07 PM EST Cardiac Surgery Note Gregory Fatima is a 72 y.o. male who is s/p CABGx3 07/06/17 and was admitted for observation/pain control of right toe ischemia and pain. He started having sternal drainage last night and we are called to come assess. Temp: [36.6 ??C (97.9 ??F)-36.7 ??C (98.1 ??F)] Heart Rate: [62-67] Resp: [13-16] BP: (115-149)/(56-84) SpO2: [92 %-99 %] Heart Rate from SPO2: [62 bpm-68 bpm] General: Sitting in bed. NAD. Pleasant. Chest incision: small amount of serous drainage of inferior pole of incision, unable to express, mild erythema around edge, no warmth or tenderness, no sternal click with cough Lab Results Component Value Date WBC 15.0 (H) 07/27/2017 HGB 10.3 (L) 07/27/2017 HCT 32.6 (L) 07/27/2017 PLATELET 322 07/27/2017 Lab Results Component Value Date NA 137 07/27/2017 K 5.1 (H) 07/27/2017 Lab Results Component Value Date BUN 37 (H) 07/27/2017 CREATININE 1.49 07/27/2017 Lab Results Component Value Date INR 1.6 (H) 07/27/2017 ABG (Arterial Blood Gas) No results found for: PHART, PO2ART, SYZ4HGB Assessment/Plan: 72 y.o. male s/p CABG in June now with recurrent sternal drainage. No visible signs of infection, afebrile, leukocytosis stable since last admission. Sternum is stable. OK to discharge home to follow up with Cardiac Surgery on if still draining. Otherwise routine post-op visit already scheduled on 08/11/17. Send with 5 days of PO keflex 500mg 4 times daily BID dressing changes. Remove dressing, paint incision with chlorhexidine or iodine containing solution and redress. OK to shower Reinforced sternal precautions with patient STEPHANIE SARMIENTO 07/27/2017 Kim Desai LD - 07/27/2017 2:16 PM EST Nutrition Initial Note Gregory Fatima is a 72 y.o. male Reason for intervention: Education Nutrition Recommendations: Recommend continuation of [facility], CHO2 diet order Patient and denied need for diet education at this time Encourage continued good PO intake Trend potassium, slightly elevated today Weigh patient at least twice weekly Patient Active Problem List Diagnosis Code ??? [...] ??? Hypomagnesemia E83.42 ??? Peripheral neuropathy G62.9 Past Medical History: Diagnosis Date ??? BPH (benign prostatic hyperplasia) 11/28/2013 ??? Melanoma 2006 mid back ??? Urinary retention 04/05/2013 Active Orders Diet Daily Healthy Menu Choices/Cardiac diet ([facility]-Diet) 60/ CHO counting level 2 Frequency: Effective Now Number of Occurrences: Until Specified Admit Weight: 83.92 kg Estimated body mass index is 28.13 kg/(m^2) as calculated from the following: Height as of this encounter: 172.7 cm (5' 8). Weight as of this encounter: 83.9 kg (185 lb). Deshler body weight: 68.4 kg (150 lb 12.7 oz) Adjusted ideal body weight: 74.6 kg (164 lb 7.6 oz) Today's medications: lasix, others noted Lab Results Component Value Date NA 137 07/27/2017 K 5.1 (H) 07/27/2017 CL 96 (L) 07/27/2017 CO2 28 07/27/2017 BUN 37 (H) 07/27/2017 CREATININE 1.49 07/27/2017 GLUCOSE 95 07/27/2017 MAGNESIUM 0.94 07/07/2017 CALCIUM 8.6 07/27/2017 TRIG 129 07/06/2017 Last Bowel Movement: 07/26/17 Assessment: 72 y.o.??male??with PMH ASCVD s/p CABG (07/07/17), MARIA VICTORIA on CPAP QHS, HTN, HLD, DM2, with recent hospitalization for RLE critical limb ischemia, who presented to [facility] with worsening RLE pain. Visited with patient and this afternoon. Patient denied following any specific diet at home. Last HA1C was documented on 07/06/17 as 6.8. reports that she tries to get patient to eat well and avoid junk food. Educated patient and regarding current diet guidelines. Patient verbalized understanding and denied further nutrition related questions or concerns at this time. Discussed option of between meal snacks and supplements, patient declined need at this time. WINSTON LOZANO Maddison Tee MD - 07/27/2017 2:04 PM EST Vascular surgery consult service - update Duplex revealed thrombosed right common femoral pseudoaneurysm - decreased in size since imaging oneweek ago. Toes are beginning to demarcate which is not surprising considering bi-triphasic waveformswith toe pressure of 0 on most recent JULIAN testing. I have had two discussions w the patient regarding outlook in terms of viability of the toes. It is highly likely his first two toes will eventually necrose and his third toe is borderline. At this point the pt would prefer to have his pain managed and make sure the toes are not salvageable before moving on to amputation. This strategy is fine for now - he has no signs of infection. Medicine has started the pt on low dose fentanyl patch for long acting pain management. Mr Fatima has an appt w us in 8 days. We will see him then to check the appearance of his right foot. Should his pain become unmanageable or the pt develops signs of infection he has to call us right away - Mr Fatima and his expressed understanding. I have communicated this plan w the hospital medicine team. Pt will likely be discharged today. Carlos Alberto Rosales MD - 07/27/2017 1:59 PM EST Hospital Medicine - Attending Day of Discharge Documentation Discharge diagnosis Active Hospital Problems Diagnosis ??? Ischemic foot ??? ASHD (arteriosclerotic heart disease) ??? Cardiomyopathy, ischemic ??? Gastroesophageal reflux disease ??? Critical lower limb ischemia ??? BPH (benign prostatic hyperplasia) ??? MARIA VICTORIA (obstructive sleep apnea) on CPAP ??? Seborrheic psoriasis- scalp and ingtergluteal area Resolved Hospital Problems Diagnosis Date Resolved No resolved problems to display. Secondary Issues Active Non-Hospital Problems Diagnosis ??? 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 STEMI (ST elevation myocardial infarction) ??? Dependence on continuous positive airway pressure ventilation ??? Hearing impaired ??? Hyperlipidemia ??? Hypomagnesemia ??? Peripheral neuropathy ??? Atypical nevus of abdominal wall ??? Urinary retention ??? Goiter ??? Skin lesion of chest wall ??? Melanoma I have personally seen and examined the patient and they are ready for discharge. Select the appropriate statement that describes your involvement and care and omit the other: I spent >30 minutes (Day of Discharge Code 74617) involved in the final examination of the patient, discussion of the hospital stay, instructions for continuing care to all relevant caregivers, and preparation of discharge records, prescriptions and referral forms. Plans ? Discharge to Home with home health ? Follow-up scheduled with Cardiology and vascular ? Please see the Discharge Summary for complete details of any medication changes and additional plans. Tamiko Roblero RN - 07/27/2017 8:19 AM EST Pt arrived on unit with personal belongings. Oriented to room and call system, ambulated to toilet one assist with walker, pt denies chest pain, nausea, difficulty swallowing, and only reports numbnessand tingling in R foot. R foot has a weak doppler pulse, MD in to assess. HR regular. at bedside. Pt received X1 PRN for pain (see MAR). No acute events over shift, will continue to monitor and page with updates. Tamiko Roblero RN documented in this encounter H&P Notes Tam Bauman MD - 07/27/2017 2:47 AM EST Inpatient Hospital Medicine - Admission Note Problem List: Active Hospital Problems Diagnosis ??? Ischemic foot ??? ASHD (arteriosclerotic heart disease) ??? Cardiomyopathy, ischemic ??? Gastroesophageal reflux disease ??? Critical lower limb ischemia ??? BPH (benign prostatic hyperplasia) ??? MARIA VICTORIA (obstructive sleep apnea) on CPAP ??? Seborrheic psoriasis- scalp and ingtergluteal area Resolved Hospital Problems Diagnosis Date Resolved No resolved problems to display. Active Non-Hospital Problems Diagnosis ??? 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 STEMI (ST elevation myocardial infarction) ??? Dependence on continuous positive airway pressure ventilation ??? Hearing impaired ??? Hyperlipidemia ??? Hypomagnesemia ??? Peripheral neuropathy ??? Atypical nevus of abdominal wall ??? Urinary retention ??? Goiter ??? Skin lesion of chest wall ??? Melanoma ID: 72 y.o. Male presents to [facility] with persistent pain b/l lower extremities History of Present Illness: HPI 72 y.o. male with PMH ASCVD s/p CABG (07/07/17), MARIA VICTORIA on CPAP QHS, HTN, HLD, DM2, with recent hospitalization for RLE critical limb ischemia, who presented to [facility] with worsening RLE pain. Pt post-op course after CABG was significant for paroxysmal Afib, and he was started on Coumadin given elevated [id number] score. He presented 2 weeks following that, on 07/20, with RLE pain/pallor andwas found to have critical limb ischemia in setting of subtherapeutic INR, pseudoaneurysm Rt COUNT ROOM CLERK and occlusion b/l ant tibial arteries. He was admitted at that time to vascular surgery service, and there was found to be no role for vascular intervention. He was initially placed on Hep gtt, and discharged subsequently on home Coumadin with Lovenox bridge. He reports being in usual state of health following discharge till 2-3 days prior to presentation, and presented today due to worsening pain and persistent discoloration. Of note, per chart review, pt has been off Lovenox since 07/23 due to therapeutic INR of 2.7. However in ED today, INR noted to be 1.6. ROS negative headache, light-headedness, dizziness, chest pain, shortness of breath, fever, chills. He denied any urinary sx, GI sx, or any increased difficulty ambulating due to pain. He was admitted to hospital medicine for observation for pain control. Review of Systems: Review of Systems 10 point ROS negative except as above Past Medical and Surgical History: Past Medical History: Diagnosis Date ??? BPH (benign prostatic hyperplasia) 11/28/2013 ??? Melanoma 2006 mid back ??? Urinary retention 04/05/2013 Past Surgical History: Procedure Laterality Date ??? PRG SOMATOSENSORY TEST, ANY/ALL PER. NERVES, TRUNK OR HEAD 03/28/2013 FACIAL NERVE MONITORING, SETUP performed by Manny Mcknight MD at [facility] MAIN OR ??? PRO CABG, ARTERIAL, SINGLE N/A 07/07/2017 @CABG, USING ARTERIAL GRAFT;SINGLE ARTERIAL GRAFT (WRVU 33.75) performed by Yuan Retana MD at [facility] MAIN OR ??? PRO CABG, ARTERY-VEIN, TWO N/A 07/07/2017 @CABG, TWO VENOUS GRAFTS & ARTERIAL GRAFT (WRVU 7.93) performed by Yuan Retana MD at [facility] MAIN OR ??? PRO COLONOSCOPY, REMV LESN, SNARE 01/16/2014 COLONOSCOPY, POLYPECTOMY, REMOVAL LESION BY SNARE performed by Nohemi Jaimes MD at [facility] ENDOSCOPY ??? PRO ENDOSCOPY W/VIDEO-ASST VEIN HARVEST, CABG Right 07/07/2017 ENDOSCOPIC HARVEST VEIN(S) FOR CABG (WRVU 0.31) performed by Yuan Retana MD at [facility] MAIN OR ??? PRO THYROIDECTOMY 03/28/2013 THYROIDECTOMY, TOTAL OR COMPLETE performed by Manny Mcknight MD at [facility] MAIN OR Prior To Admission Medications: (Not in a hospital admission) Allergies: No Known Allergies Family History: No family history on file. Social History and Habits: Social History Social History ??? Marital status: [...] ??? Not on file Social History Narrative Immunizations: Immunization History Administered Date(s) Administered ??? Influenza PF, Split 03/29/2013 ??? Influenza Vaccine, Whole 06/14/2006 Physical Exam: Last Set of Vitals and range of vitals over past 24 hours: Last value Range last 24 hrs Temperature Temp: 36.6 ??C (97.9 ??F) Temp: [36.6 ??C (97.9 ??F)] Heart Rate Heart Rate: 65 Heart Rate: [65-67] Blood Pressure BP: 129/62 BP: (115-135)/(58-65) Respiratory Rate Resp: 15 Resp: [14-16] SpO2 SpO2: 97 % SpO2: [97 %-99 %] Body mass index is 28.13 kg/(m^2). Physical Exam GEN: Lying in bed comfortably, NAD, well developed, well nourished, on room air HEENT: No jaundice, no conjunctival pallor, EOMI, PERRLA CVS: RRR, S1+S2+no added sounds, CHEST: CTABL, no added sounds. CABG scar noted ABD: Soft, NT/ND, BS+delaney NEURO: AAO*3, no focal deficits PSYCH: Normal mood and affect EXT: RLE: palpable groin mass with good femoral pulse, no discoloration; foot is edematous, cooler than contralateral leg/foot, toes are discolored, able to wiggle toes, sensation intact, PT and DP auscultated on doppler LLE: edematous, sensation and motor intact, PT and DP auscultated on doppler SKIN: No rash. Vein graft sites WNL. ? LABS Laboratory (Last 24 Hours): Recent Results (from the past 24 hour(s)) Basic Metabolic Panel (non-fasting) Result Value Ref Range Glucose Lvl 95 65 - 199 mg/dL BUN 37 (H) 10 - 20 mg/dL Creatinine 1.49 0.80 - 1.50 mg/dL Sodium 137 135 - 145 mmol/L Potassium 5.1 (H) 3.5 - 5.0 mmol/L Chloride 96 (L) 98 - 107 mmol/L CO2 28 22 - 31 mmol/L Anion Gap 13 5 - 15 mmol/L Calcium 8.6 8.5 - 10.5 mg/dL Estimated GFR 46 (L) >=60 Prothrombin Time Result Value Ref Range PT 19.1 (H) 11.8 - 14.0 sec INR 1.6 (H) 0.9 - 1.1 ABO/Rh Typing Result Value Ref Range ABORh Type O Pos Antibody screen Result Value Ref Range Ab Screen Interp Negative Expires at 2359 on: 07/30/2017 Hemogram Result Value Ref Range WBC 15.0 (H) 4.0 - 9.5 x10(3)/mcL RBC 3.59 (L) 4.58 - 5.54 x10(6)/mcL Hemoglobin 10.3 (L) 13.7 - 16.5 gm/dL Hematocrit 32.6 (L) 40.5 - 48.5 % MCV 90.8 82.9 - 93.1 fL MCH 28.7 27.5 - 32.1 pg MCHC 31.6 (L) 32.0 - 35.7 gm/dL Platelets 322 145 - 357 x10(3)/mcL RDWSD 48.7 (H) 36.0 - 45.0 fL RDWCV 14.7 (H) 11.4 - 13.8 % MPV 8.9 7.6 - 12.9 fL nRBC % Auto 0.0 % nRBC Abs Auto 0.000 0.000 - 0.000 x10(3)/mcL Differential, Automated Result Value Ref Range Neutrophils % 75.0 % Neutr Abs (ANC) 11.30 (H) 1.70 - 6.10 x10(3)/mcL Lymphocytes % 9.9 % Lymphocytes Abs 1.5 0.9 - 3.2 x10(3)/mcL Monocytes % 8.6 % Monocyte Abs 1.3 (H) 0.3 - 0.9 x10(3)/mcL Eosinophils % 4.8 % Eosinophils Abs 0.7 (H) 0.0 - 0.4 x10(3)/mcL Basophils % 0.8 % Basophils Abs 0.1 0.0 - 0.1 x10(3)/mcL Immature Gran % 0.90 % Melisa Gran Abs 0.13 (H) 0.00 - 0.04 x10(3)/mcL Gold Tube HOLD Result Value Ref Range Gold Hold Sample in lab. ABORH Recheck Status Result Value Ref Range ABORH Type Recheck Completed Microbiology: Microbiology Results (Last 30 days) Procedure Component Value Units Date/Time Blood culture [[id number]] Collected: 07/09/1739 Lab Status: Final result Specimen: Blood from Arm, Right Updated: 07/14/17701 Blood Culture No growth at 5 days. Blood culture [[id number]] Collected: 07/09/170 Lab Status: Final result Specimen: Blood from Arm, Left Updated: 07/14/17701 Blood Culture No growth at 5 days. Radiology: Ct Angiogram Aorta Lower Extremity Runoff 07/20/2017 1. RIGHT common femoral artery small pseudoaneurysm with 3 cm overlying hematoma. 2. Predominantly occluded bilateral anterior tibial arteries, with diminished flow within the RIGHT dorsalis pedis. 3. Predominantly nonopacified bilateral posterior tibial arteries. 4. Heterogeneous splenic enhancement may be sequela phase of contrast, although there are large wedge-shaped areas of nonopacification; splenic infarcts not excluded. JULIAN B/L LE 07/20/2017: RIGHT: No significant lower extremity arterial occlusive disease identified at rest to the distal calf. No obtainable right great toe pressure indicates severe occlusive disease in the ankle/foot/toe regions. LEFT: No significant lower extremity arterial occlusive disease identified at rest to the distal calf. Normal ankle/brachial pressure ratios and ankle Doppler waveforms. Toe/brachial index substantially lower than ankle/brachial index indicates presence of moderate arterial occlusive disease in the foot. Comparison: ??No previous study in our vascular lab database for comparison. AVELINO 07/08/2017: 1. Intraoperative AVELINO performed at the request of Dr. Mike for the diagnosis and evaluation ofhemodynamics, overall cardiac function, and valvular pathologies as [...] no evidence of aotic dissection was imaged Pulmonary Report - Endoscopy - Assessment: 72 y/o M with PMHx ASCVD s/p CABG 06/2017, HTN, ischemic CM EF 30%, iatrogenic hypothyroidism, IDDM2, MARIA VICTORIA on CPAP, and recent admission for critical limb ischemia following CABG, who presented to [facility] ED from home with persistent B/L LE pain and subtherapeutic INR. He was evaluated by vascular surgeryin ED who recommended admission for pain control and awaiting therapeutic INR. Currently he is hemodynamically stable, s/p 2 doses IV Dilaudid. Critical limb ischemia: - Thought to be embolic following recent CABG 06/2017 - Mottled RLE toes - motor and sensory intact to BLE - On Lovenox bridge to Coumadin - will c/w same. Was on Coumadin 2.5mg Qdaily and Lovenox was held as INR 2.7. However INR currently sub-therapeutic at 1.6 so will restart Lovenox; pharmacy dose - S/P 1.5mg IV Dilaudid in ED - will try to transition to PO Dilaudid sliding scale to evaluate response - Vascular surgery following - conservative management recommended. Recs appreciated - PT eval for ambulation Leukocytosis: Likely reactive 2/2 ischemia. No evidence of infection per h/p and pt afebrile. Will c/w monitoring ASCVD S/P CABG 06/2017: Ischemic cardiomyopathy 30%: HTN - Pt on ASA 81mg Qdaily, Lipitor 40mg Qdaily, Lisinopril 10mg Qdaily, Metoprolol tartrate 25mg BID - Also on Lasix 20mg Qdaily and Amiodarone 400mg Qdaily, and KlorCon 10mg Qdaly - Will c/w all home meds Hypothyroidism post thyroidectomy for goitre 2012: JESICA. Pt continued on home dose of Synthroid 175mcg Qdaily IDDM2: On Metformin 850mg BID and Lantus 20units QHS - will hold Metformin while inpt and transition to sliding scale insulin while admitted. Will c/w Lantus BPH (not on meds): Psoriasis: MARIA VICTORIA on CPAP QHS: JESICA. Home regimen continued Diet Daily Healthy Menu Choices/Cardiac diet ([facility]-Diet) 60/60/75 CHO counting level 2Cardiac, low salt, CHO 2 Discharge planning Pending improvement in pain control PT/OT/Speech PT ordered Lines/Access PIV Ocasio catheter No DVT/GI Prophylaxis Lovenox bridge to Coumadin, SCD. Code status Full Code Family PCP Lovely Vicente MD [phone] Attestation Please see my note for details of the patient history of presentation and data. I have seen and examined the patient myself and reviewed pertinent studies. I have discussed, reviewed and agree with the documented History, Physical findings, Assessment and Plan of care. Pt is being admitted as observation for pain control Admit to hospital medicine If currently a smoker, advised about smoking cessation and will provide smoking cessation material and support. Pneumovax and Influenza Immunizations given as needed. Discussed Advanced Directives and Code Status. The patient wishes to be Full Code. A copy of this document will be sent to the patient's Primary Care Physician and/or Referring Physician. Tam Bauman MD 07/27/2017 documented in this encounter ED Notes Jazmín Proctor RN - 07/27/2017 1:40 AM EST Patient requesting additional analgesia. Discussion w/Hank Swenson re same. New orders obtained. Jazmín Proctor RN - 07/27/2017 1:11 AM EST Report from [facility]. Care assumed. Patient currently sitting on stretcher in no acute distress. Reports that having affected limb in dependent position is less painful, and that pain is tolerable after administration of IV dilaudid. Will request pain medication if he feels pain getting worse again. VSS. Call cabello in reach. Angela Swenson MD - 07/27/2017 12:57 AM EST ATTESTATION NOTE I saw this patient with resident physician Siva. Please see their note for full details. HPI notable for 72 YOM with recent CABG on 07/06, readmission on 07/19 for critical limb ischemia/groin pseudoaneurysm, no intervention done. Pt re- presents today with worsening right foot pain, purpletoes and swelling. Pt states it is worse over psat 24 hours. Takes dilaudid for pain. Improved pain w ith hanging leg over side of bed or standing. PMH Past Medical History: Diagnosis Date ??? BPH (benign prostatic hyperplasia) 11/28/2013 ??? Melanoma 2006 mid back ??? Urinary retention 04/05/2013 MEDS No current facility-administered medications for this encounter. Current Outpatient Prescriptions Medication Sig Dispense Refill ??? enoxaparin (LOVENOX) 100 mg/mL Syringe Inject 0.85 mLs subcutaneously 2 times daily. 10 Syringe 2 ??? warfarin (COUMADIN) 2.5 mg Tablet Take 1 tablet by mouth daily. ??? HYDROmorphone (DILAUDID) 2 mg Tablet Take 1 tablet by mouth every 4 hours as needed for Pain. 40tablet 0 ??? LANTUS SOLOSTAR pen Inject 20 Units [...] by mouth daily. 30 tablet 0 ??? insulin lispro (HUMALOG KWIKPEN) Insulin [...] taking: Reported on 06/03/2017) 60 mL 2 BP 115/58 Pulse 67 Temp 36.6 ??C (97.9 ??F) Resp 16 SpO2 99% Exam notable for General: Well appearing, NAD Heent: NCAT, mmm Neck: no meningismus CV: RRR, no m/r/g, well healing sternal incision Pulm: CTAB, no w/r/r Abd: Soft, non tender, non distended Skin: warm and dry Neuro: GCS 15, TUTTLE x 4 Psych: normal affect, normal eye contact Ext: right foot with purple discoloration of toes, cool to touch, no palpable pulses. I am able to doppler a DP and PT pulse. Please see resident physician exam for further details A/P While in the ED, pt was seen by vascular surgery. His INR was subtherapeutic, but given dopplerable pulses, do not think emergent surgical intervention indicated. Concern that pt may eventually lose toes given not therapeutic with known ischemia. Recommend admission to medicine for anticoagulation andpain control. MD Messi Mejias Jessica L, MD 07/27/17 0235 Steven Paniagua MD - 07/27/2017 12:28 AM EST Gregory Fatima is an 72 y.o. male who presents to the ED with: Chief Complaint Patient presents with ??? Foot Pain I saw this patient 07/27/2017 at ~ 12:28 AM HPI Gregory Fatima is a 72 y.o. male with a PMH significant for recent STEMI (s/p CABG x3 on 07/07/17),HTN, HLD, DM II, MARIA VICTORIA (on CPAP) who presents to the Emergency Department with RLE pain and paleness. Pt was admitted for similar symptoms on 07/19/17 and found to be subtherapeutic on coumadin (INR 1.5). At that time he was found to have a pseudoaneurysm of his right common femoral artery and occlusionof bilateral anterior tibial arteries. Pt was started on a heparin gtt and discharged the next day on coumadin with a lovenox bridge. Pt states that since that time the pain has continued to worsen. Heand also notice that the discoloration on his right toes is worse than before. Pt denies any acute event that could have worsened his symptoms. Review of Systems: Review of Systems Constitutional: Negative for fever. Respiratory: Negative for shortness of breath. Cardiovascular: Negative for chest pain. Gastrointestinal: Negative for abdominal pain, nausea and vomiting. Genitourinary: Negative for difficulty urinating. Musculoskeletal: Positive for arthralgias and gait problem. Skin: Positive for pallor. Psychiatric/Behavioral: Negative for confusion. Patient Vitals for the past 8 hrs: BP Temp Pulse Resp SpO2 07/27/17 0018 135/65 36.6 ??C (97.9 ??F) 66 14 99 % Physical Exam: Physical Exam Constitutional: He is oriented to person, place, and time. He appears well- developed and well-nourished. No distress. HENT: Head: Normocephalic and atraumatic. Cardiovascular: Normal rate, regular rhythm and normal heart sounds. Exam reveals no gallop and no friction rub. No murmur heard. Pulmonary/Chest: Effort normal and breath sounds normal. No respiratory distress. He has no wheezes.He has no rales. Musculoskeletal: He exhibits no edema. RLE: edematous, cool, discolored toes (see images on vascular consult note), intact sensation, PT and DP auscultated on doppler. Dorsum tenderness at base of toes. Neurological: He is alert and oriented to person, place, and time. Skin: Skin is warm and dry. Psychiatric: He has a normal mood and affect. His behavior is normal. Nursing note and vitals reviewed. ED Course: - Patient was evaluated and discussed with Dr. Herrmann - Medications, allergies and past medical history reviewed ED Course: ED Course Steven Paniagua'alivia Documentation Value Comment Time INR: (!) 1.6 (Reviewed) 07/27 032 WBC: (!) 15.0 (Reviewed) 07/27 0320 1.5 mg dilaudid IV given for pain control Assessment and Plan: MDM: 72 y.o. male who presents for worsening RLE pain and discoloration. Pt's symptoms are likely due to embolism for femoral artery pseudoaneurysm. Pt's symptoms are similar to those he presented withon 07/19/17 - at which time he was subtherapeutic on coumadin. Pt's INR today was 1.6. Vascular surgery was consulted, and they recommended admission to hospital medicine for pain control and therapeutic anticoagulation. Pt and agreed to this plan, and they were admitted to the medicine service. Plan: - Admit to hospital medicine for pain control and therapeutic anticoagulation - Vascular surgery will continue to follow during admission Steven Paniagua MD Resident 07/28/17 1115 Associated attestation - Angela Swenson MD - 07/31/2017 8:06 AM EST ED ATTENDING ATTESTATION NOTE The patient was seen in conjunction with Dr. Paniagua the resident physician. I have independently performed the shelton portions of the history and physical exam. I have reviewed the nursing notes, vital signs, and all diagnostic studies personally including labs, imaging studies and EKGs. I have discussedthe details of the case with the resident and agree with the assessment and plan as described in theresident note above unless noted otherwise below. Please see my separately filed attestation note. documented in this encounter Miscellaneous Notes Plan of Care - Oscoda-Joyce Damian, PT - 07/27/2017 3:26 PM EST Problem: Patient Care Overview Goal: Plan of Care Review Outcome: Outcome (s) achieved Date Met: 07/27/17 07/27/17 1607 Coping/Psychosocial Plan Of Care Reviewed With patient;spouse Plan of Care Review Progress improving Physical Therapy Treatment Number: 1 Pertinent History of Current Problem: Pt is a 72 yo male admitted 07/27/17 due to increase RLE pain and sub therapeutic INR. Pt s/p CABG 07/06/17. Pt was re admitted 07/19/17 for CLI due to pseudoaneurysm, 2/2 cardiac cath in June. Pt to be discharged home on a heparin bridge. CT team sending pt home on IV abx due to sternal drainage. Living Environment Comment: Pt lives w/ . 2 story home but can stay on the 1st floor. 4 steps with a railing to enter home. Prior Functional Level Comment: Pt did use a FWW initially after Surgery. Also has a cane, if needed. No assistance needed at home, per pt and Precautions/Restrictions: fall, sternal, lifting (No pushing or pulling w/ arms. No lifting > 5#.) Precautions Comments: neuropathy. CLI RLE. Vital Signs During Session: NE Pt seen today for PT evaluation, pt ed, dc planning, gait, transfer and bed mobility training. Pt presents HD 1. Pt tolerated rx well and is demonstrating functional gains. Pt with recent CABG, Pseudoaneurysm w RLE CLI, and now subtherapeutic with INR. New sternal drainage. CT PA came to observe sternal drainage. Pt started on ABX. PT told pt to avoid UEs exercises until no sternal drainage for at least 48 hours and to stop if drainage re starts. states pt has not followed exercises given to him and has not followed his sternal precautions despite telling him to what he should be doing. Pt states he is stubborn but will be more compliant. He followed sternal precautions well once cued and re educated in them. Pt understands the risks such as infection and non healing sternum. Pt educated in the need to use cane with ice prongs when outside. He will use the FWW if RLE becomes painful. NO further inpt PT. Please see the Rehab Evaluation Summaries report for objective data and specifics of today???s session. Staff Mobility Recommendations: Cues for sternal precautions. Anticipated Physical Therapy Frequency: evaluation only Anticipated Equipment Needs at Discharge: (NONE) Anticipated Discharge Disposition: home with assist Pager: [phone] JOYCE KING, PT Inpatient Physical Therapy 2017 PT Evaluation Code Rationale: ?? Diagnosis [...] ??? Hypomagnesemia E83.42 ??? Peripheral neuropathy G62.9 ?? Clinical presentation: Stable Evolving Unstable x ?? Examination of Body Systems: Addressing 1-2 elements Addressing 3 + elements x Addressing 4 + elements Clinical decision making of moderate complexity based on pt's functional performance as outlined in this evaluation. G-Code: Mobility Status Modifier CURRENT CJ - At least 20 percent but less than 40 percent impaired, limited or restricted PROJECTED CI - At least 1 percent but less than 20 percent impaired, limited or restricted DISCHARGE CJ - At least 20 percent but less than 40 percent impaired, limited or restricted G Code Rationale: This G-Code and these disability modifiers were selected as the primary therapy goal based upon the patient's evaluation including the following functional test(s) [facility]. Current ability measures, co-morbidities and clinical judgement were also used to select the disability modifier.Mr. Fatima's current G-Code functional level is 35% impaired based upon evaluation. Plan of Care - Zulma Arndt RN - 07/27/2017 3:26 PM EST Pt alert and oriented x4. at bedside. Taken down for vascular ultrasound of right leg. Pt denied pain this shift. PT in to work with pt, pt ambulating in hallway. Sternal incision draining small amounts, cardiac surgeon in to assess and dressing applied. IV D/C, AVS reviewed with pt with good understanding. Pt d/c to home with all belongings. Consult Note - Shubham Mayorga MD - 07/27/2017 6:28 AM EST Images from the original note were not included. Vascular Surgery ED Consult Note HPI: Gregory Fatima is a 72 y.o. male with PMH HTN, HLD, DM2, MARIA VICTORIA (on CPAP), who was recently admitted for STEMI who underwent a CABG x3 (07/07) that hospitalization was complicated by Afib/RVR and he was discharged on Coumadin. He then represented 07/20 for RLE pain and paleness and was found to be subthe rapeutic on Coumadin (INR 1.5) and was found to have pseudoaneurysm of his RIGHT common femoral artery as well as bilateral anterior tibial arteries occlusion. Heparin gtt was initiated and he was discharged the next day (07/10) on home dose coumadin with a lovenox bridge. Mr. Fatima returns to [facility] ED tonight because of ongoing pain in his RLE. He states that since 07/20 the pain has failed to improve and he feels that his toes are more discolored than before. He denies any acute event. PMH: - HTN - HLD - DM2 - MARIA VICTORIA - BPH PSH: Past Surgical History: Procedure Laterality Date ??? PRG SOMATOSENSORY TEST, ANY/ALL PER. NERVES, TRUNK OR HEAD 03/28/2013 FACIAL NERVE MONITORING, SETUP performed by Manny Mcknight MD at [facility] MAIN OR ??? PRO CABG, ARTERIAL, SINGLE N/A 07/07/2017 @CABG, USING ARTERIAL GRAFT;SINGLE ARTERIAL GRAFT (WRVU 33.75) performed by Yuan Retana MD at [facility] MAIN OR ??? PRO CABG, ARTERY-VEIN, TWO N/A 07/07/2017 @CABG, TWO VENOUS GRAFTS & ARTERIAL GRAFT (WRVU 7.93) performed by Yuan Retana MD at [facility] MAIN OR ??? PRO COLONOSCOPY, REMV LESN, SNARE 01/16/2014 COLONOSCOPY, POLYPECTOMY, REMOVAL LESION BY SNARE performed by Nohemi Jaimes MD at [facility] ENDOSCOPY ??? PRO ENDOSCOPY W/VIDEO-ASST VEIN HARVEST, CABG Right 07/07/2017 ENDOSCOPIC HARVEST VEIN(S) FOR CABG (WRVU 0.31) performed by Yuan Retana MD at [facility] MAIN OR ??? PRO THYROIDECTOMY 03/28/2013 THYROIDECTOMY, TOTAL OR COMPLETE performed by Manny Mcknight MD at [facility] MAIN OR MEDICATIONS: No current facility-administered medications on file prior to encounter. Current Outpatient Prescriptions on File Prior to Encounter Medication Sig Dispense Refill ??? enoxaparin (LOVENOX) 100 mg/mL Syringe Inject 0.85 mLs subcutaneously 2 times daily. 10 Syringe 2 ??? warfarin (COUMADIN) 2.5 mg Tablet Take 1 tablet by mouth daily. ??? HYDROmorphone (DILAUDID) 2 mg Tablet Take 1 tablet by mouth every 4 hours as needed for Pain. 40tablet 0 ??? LANTUS SOLOSTAR pen Inject 20 Units [...] by mouth daily. 30 tablet 0 ??? insulin lispro (HUMALOG KWIKPEN) Insulin [...] taking: Reported on 06/03/2017) 60 mL 2 ALLERGIES: NKDA FAMILY HISTORY: - Denies history of bleeding or clotting disorders. Denies history of reactions to anesthesia. SOCIAL HISTORY: Social History Social History ??? Marital status: [...] ??? Not on file Social History Narrative REVIEW OF SYSTEMS: 12 point review of systems as noted per HPI otherwise negative. PHYSICAL EXAM: VS: (Temp: [36.6 ??C (97.9 ??F)] ) Temp: 36.6 ??C (97.9 ??F), (Heart Rate: [66- 67] ) Heart Rate: 67,(BP: (115-135)/(58-65) ) BP: 115/58, (Resp: [14-16] ) Resp: 16, (SpO2: [99 %] ) SpO2: 99 % GA: NAD, resting comfortably CV: regular Pulm: unlabored breathing on RA, no use of accessory muscles, no stridor/audible wheezing ABD: not distended, soft, nontender to palpation Extr: RLE: palpable groin mass with good femoral pulse, no discoloration; foot is edematous, cooler than contralateral leg/foot, toes are discolored (see picture below), able to wiggle toes, sensation intact, PT and DP auscultated on doppler LLE: edematous, sensation and motor intact, PT and DP auscultated on doppler Neuro: no focal deficits LABS: Recent Labs 07/27/17 0053 07/20/17 1034 WBC 15.0* 17.0* HGB 10.3* 10.8* HCT 32.6* 33.4* PLATELET 322 211 NEUTROABS 11.30* 14.27* Recent Labs 07/27/17 0053 07/20/17 0225 NA 137 134* K 5.1* Not Perf CL 96* 92* CO2 28 29 BUN 37* 35* CREATININE 1.49 1.51* Recent Labs 07/27/17 0053 07/20/17 1034 07/20/17 0225 INR 1.6* -- 1.5* PT 19.1* -- 17.7* PTT -- 79* 36* CARDS/VASC: 07/20 JULIAN: Right ?Pressure (mm Hg) ?? JULIAN ??Waveform [...] ??Triphasic ? Great Toe ?58 ? 0.41?? IMAGIN/26 CTA BLER: RIGHT common femoral artery small pseudoaneurysm with 3 cm overlying hematoma. Predominantly occluded bilateral anterior tibial arteries, with diminished flow within the RIGHT dorsalis pedis. ASSESSMENT and RECOMMENDATIONS: 72M recently admitted for concern of ischemic compromise of his RLE following CABG x3 (07/07), foundto be subtherapeutic on coumadin and seemed to respond well to a heparin gtt. He returns this evening for the same RLE pain and discoloration. Currently his RLE DP/PT are easily auscultated on doppler,motor and sensation are grossly intact. His toe pain and discoloration is likely due to embolus from his femoral artery pseudoaneurysm. JULIAN's are normal other than toe pressure of 0. Ultimately, he needs to have therapeutic anticoagulation until the toes develop collateral flow and improve or demarcate and require amputation. At this time we would recommend either admission to Internal Medicine team for pain control and therapeutic anticoagulation (Vascular Surgery would follow) or he can go home with pain control and lovenox bridge to coumadin with plan to f/u in Vascular Clinic this week. Zulma Lazo MD 07/27/2017 Vascular Surgery Senior: 72 year old male with right sided blue toe syndrome now admitted to medicine with uncontrolled pain. He has bilateral palpable femoral pulses, popliteal pulses, and a right (the affected side) DP pulse. He has signals in the right PT, and the left DP and PT. He has intact motor and sensory function. He has dusky toes on the right side. He has a recent JULIAN exam that shows a normal JULIAN, but disease distally in the foot, likely due to emboli on top of existing distal vascular disease from diabetes. The likely origin of the emboli is theright groin PSA. Based on prior CT, it is about 95% thrombosed, will perform a duplex today to confirm thrombosis. His toes will either improve, or become gangrenous and require amputation. At this time, their fate is not yet determined. He will require monitoring and close clinic follow up. Recommend: No indication for an urgent or emergent intervention. Recommend treatment with antiplatelet medication for blue toe syndrome (this does not require anticoagulation - however he is on anticoagulation for AF after his CABG). Recommend right groin arterial duplex to determine thrombosis of the PSA. Recommend pain control. Follow up in clinic 1-2 weeks after discharge. [facility] Vascular Surgery Plan of Care - Jazmín Proctor RN - 07/27/2017 1:31 AM EST Problem: Tissue Perfusion, Ineffective Peripheral (Adult) Intervention: Minimize Pressure Points 07/27/17 0131 Skin Interventions Pressure Reduction Techniques frequent weight shift encouraged;rest period provided between sit times Plan of Care - Jazmín Proctor RN - 07/27/2017 1:30 AM EST Problem: Tissue Perfusion, Ineffective Peripheral (Adult) Intervention: Optimize Tissue Perfusion 07/27/17 0130 Optimize Tissue Perfusion Capillary Refill, General LLE General greater than 3 secs Activity Activity Type activity adjusted per tolerance;sitting, edge of bed Plan of Care - Jazmín Proctor RN - 07/27/2017 1:29 AM EST Problem: Tissue Perfusion, Ineffective Peripheral (Adult) Goal: Identify Related Risk Factors and Signs and Symptoms Related risk factors and signs and symptoms are identified upon initiation of Human Response Clinical Practice Guideline (CPG) 07/27/17 0128 Tissue Perfusion, Ineffective Peripheral Tissue Perfusion, Ineffective Peripheral: Related Risk Factors arterial flow reduced;venous flow reduced Signs and Symptoms (Ineffective Peripheral Tissue Perfusion) aching pain;arterial pulsations diminished;capillary refill: greater than 3 seconds (adult);edema;motor function decreased;pain at rest;peripheral pulses absent/decreased;skin color changes;skin temperature changes ED Triage - Colby Rodriguez - 07/27/2017 12:20 AM EST Patient arrives today with severe pain in the right foot following a bypass surgery he had on the . Patient has limited motion in the affected extremity, some sensation and and weak pedal pulse. Patient states the injured extremity shoots pain up his leg and he has trouble walking on it. No hx of any DVTS, PEs or clotting disorders. Patient denies chest pain, abdominal pain, breathing difficulty,nausea, vomiting, mental status changes, blurry vision or any other complaint. Patient states he hasnot been sick lately. Patient states he has had no complications with the surgery with the exceptionof his right foot. documented in this encounter Plan of Treatment Upcoming Encounters Date Type Specialty Care Team Description 02/19/2022 Laboratory Appointment Lab 02/19/2022 Office Visit Cardiology Liz Poole PA [facility] er Cardiology Dept [place], [place] [address] (Wo rk) 03/12/2022 Office Visit Cardiology Vitaliy Nobles MD [facility] CARDIOLOGY [place], [place] [address] (Wo rk) documented as of this encounter Procedures Procedure Name Priority Date/Time Associated Comments Diagnosis POCT GLUCOSE Routine 07/27/2017 11:53 Results for this AM EST procedure are i n the results section. ARTERIAL DUPLEX LEG Routine 07/27/2017 7:40 AM Femoral artery Results for this UNILA EST pseudo-aneurysm, procedure a re in right the results section. POCT GLUCOSE Routine 07/27/2017 6:51 AM Results f or this EST procedure are i n the results section. ABORH RECHECK STATUS STAT 07/27/2017 12:53 Res ults for this AM EST procedure are i n the results section. HEMOGRAM STAT 07/27/2017 12:53 Results for this AM EST procedure are i n the results section. DIFFERENTIAL, STAT 07/27/2017 12:53 Results fo r this AUTOMATED AM EST procedure are i n the results section. GOLD TUBE HOLD STAT 07/27/2017 12:53 Results f or this AM EST procedure are i n the results section. ABO/RH TYPING STAT 07/27/2017 12:53 Results fo r this AM EST procedure are i n the results section. PROTHROMBIN TIME STAT 07/27/2017 12:53 Results for this AM EST procedure are i n the results section. CBC (WITH DIFF) STAT 07/27/2017 12:53 AM EST ANTIBODY SCREEN STAT 07/27/2017 12:53 Results for this AM EST procedure are i n the results section. TYPE AND SCREEN STAT 07/27/2017 12:53 ([facility]/SHANDA) AM EST BASIC METABOLIC PANEL STAT 07/27/2017 12:53 Re sults for this (NON-FASTING) AM EST procedure are in the results section. documented in this encounter Results POCT Glucose (07/27/2017 11:53 AM EST) P athologist Signature POC Glucose 175 65 - 199 [facility] mg/dL [facility] Comment: Supplemental ranges: <140 mg/dL before meals <180 mg/dL all other times of the day Specimen Anatomical Collection Method Collection Time Receive d Time (Source) Location / / Volume Laterality Blood specimen 07/27/2017 11:53 8 (specimen) AM EST 11:53 AM EST Tam Bauman MD POINT OF CARE TEST ORDERABLE S Performing Organization Address City/State/[place] [address] Arterial Duplex Leg, Unil (07/27/2017 7:40 AM EST) Component Value Ref Test Analysis Performed At Patholo gist Range Method Time Signature VB Text Department: Vascular Surgery Lab VASCUBASE Report Patient: [id number] (GREGORY FATIMA) CPT: 68417 ICD10: I97.610;I72.4;Z09 Referring Physician: TAM BAUMAN ?? Phone: Indications: s/p cardiac cath right groin with p seudoaneurysm that thrombosed now for f/u exam; ? active flow PSA ICD10 Diagnosis Code: I97.610, Z09 Findings: Right ? PSV (c m/s) ??EDV ?? Common Femoral Artery, Mid ?81 ?0 ?? Common femoral artery, Distal ? 76 ?0 ?? Superficial Femoral Artery, Proximal ?93 ?0 ?? Interpretation: RIGHT: Patent common femoral artery and proximal superfici al femoral artery with normal, triphasic Doppler waveforms. A thrombosed pseud oaneurysm was visualized in the groin measuring approximately 2.3 cm X 3.9 cm X 3.3 cm. No active arterial flow identified within the pseudoaneurysm. N o identifiable change when compared to the previous exam done 07/20/2017. Electronically Signed by: ELIZABETH LLANOS on 2017-07-27 09:12: 52 PM VB Text End of Report VASCUBASE Report Specimen (Source) Anatomical Collection Method Collection Time Re ceived Time Location / / Volume Laterality 07/27/2017 7:40 AM EST Tam Bauman MD VASCULAR ORDERABLES Performing Organization Address City/[facility]/ZIP Code Phon e Number VASCUBASE POCT Glucose (07/27/2017 6:51 AM EST) P athologist Signature POC Glucose 96 65 - 199 [facility] mg/dL [facility] Comment: Supplemental ranges: <140 mg/dL before meals <180 mg/dL all other times of the day Specimen Anatomical Collection Method Collection Time Receive d Time (Source) Location / / Volume Laterality Blood specimen 07/27/2017 6:51 AM 018 6:51 (specimen) EST AM EST Tam Bauman MD POINT OF CARE TEST ORDERABLE S Performing Organization Address City/[facility]/ZIP [facility] Phon e Number [address] ABORH Recheck Status (07/27/2017 12:53 AM EST) Patholo gist Method Time Signature ABORH Type Completed [facility] LABORATORY Specimen Anatomical Collection Method Collection Time Receive d Time (Source) Location / / Volume Laterality Blood specimen 07/27/2017 12:53 8 (specimen) AM EST 12:58 AM EST Resulting Agency Comment Spec In Lab Angela Swenson MD BLOOD BANK ORDERABLES Performing Organization Address City/[facility]/ZIP Code Phon e Number [address] Gold Tube HOLD (07/27/2017 12:53 AM EST) P athologist Signature Gold Hold Sample in [facility] LABORATORY Specimen Anatomical Collection Method Collection Time Receive d Time (Source) Location / / Volume Laterality Blood specimen Venous Draw / 07/27/2017 12:53 07/27/19 18 1:01 (specimen) Unknown AM EST AM EST Angela Swenson MD CHEMISTRY ORDERABLES Performing Organization Address City/State/ZIP Code Phon e Number [place] [phone]OS[address] (ABNORMAL) Differential, Automated (07/27/2017 12:53 AM EST) [facility] Method Time Signature Neutrophils % 75.0 % [facility] Neutr Abs (ANC) 11.30 (H) 1.70 - [facility] 6.[address] [facility] x10(3)/[facility] LABORATORY Lymphocytes % 9.9 % [facility] Lymphocytes Abs 1.5 0.9 - 3.2 [facility] x10(3)/[facility] LABORATORY Monocytes % 8.6 % [facility] Monocyte Abs 1.3 (H) 0.3 - 0.9 [facility] x10(3)/[facility] LABORATORY Eosinophils % 4.8 % [facility] Eosinophils Abs 0.7 (H) 0.0 - 0.4 [facility] x10(3)/[facility] LABORATORY Basophils % 0.8 % [facility] Basophils Abs 0.1 0.0 - 0.1 [facility] x10(3)/[facility] LABORATORY Immature Gran % 0.90 % [facility] Comment: Immature granulocytes(IG's)percentage an d absolute count will include metamyelocytes, myelocytes, and promyelo cytes. Blood smears from CBCs yielding IG's will be scanned manually for concor dance. If this scan disagrees with the automated IG or if promyelocytes are not ed, a manual differential will be performed. Melisa Gran Abs 0.13 (H) 0.00 - 0.04 x10(3)/[facility] LABORATORY Specimen Anatomical Collection Method Collection Time Receive d Time (Source) Location / / Volume Laterality Blood specimen 07/27/2017 12:53 8 1:00 (specimen) AM EST AM EST Resulting Agency Comment Spec In Lab Angela Swenson MD HEMATOLOGY ORDERABLES Performing Organization Address City/State/ZIP Code Phon e Number [place] [phone] (ABNORMAL) Hemogram (07/27/2017 12:53 AM EST) Analysis Performed At Patho logist Time Signature WBC 15.0 (H) 4.0 - 9.5 [facility] x10(3)/[facility] LABORATORY RBC 3.59 (L) 4.58 - [place] [address] [facility] x10(6)/[facility] LABORATORY Hemoglobin 10.3 (L) 13.7 - [facility] 16.5 gm/dL [facility] Hematocrit 32.6 (L) 40.5 - [facility] 48.5 % [facility] MCV 90.8 82.9 - [facility] 93.1 [facility] LABORATORY MCH 28.7 27.5 - [place] RYAN 32.1 pg [facility] MCHC 31.6 (L) 32.0 - [facility] 35.7 gm/dL [facility] Platelets 322 145 - 357 [facility] x10(3)/[facility] LABORATORY RDWSD 48.7 (H) 36.0 - [facility] 45.0 [facility] LABORATORY RDWCV 14.7 (H) 11.4 - [facility] RYAN 13.8 % [facility] MPV 8.9 7.6 - 12.9 [facility] LABORATORY nRBC % Auto 0.0 % [facility] nRBC Abs Auto 0.000 0.000 - [place] RYAN [address] [facility] x10(3)/[facility] LABORATORY Specimen Anatomical Collection Method Collection Time Receive d Time (Source) Location / / Volume Laterality Blood specimen 07/27/2017 12:53 8 1:00 (specimen) AM EST AM EST Resulting Agency Comment Spec In Lab Angela Swenson MD HEMATOLOGY ORDERABLES Performing Organization Address City/State/[place] [address] Antibody screen (07/27/2017 12:53 AM EST) Patholo gist Method Time Signature Ab Screen Negative [facility] LABORATORY Expires at 07/30/2017 K[place]INA DAVIS [id number] on: [facility] Specimen Anatomical Collection Method Collection Time Receive d Time (Source) Location / / Volume Laterality Blood specimen 07/27/2017 12:53 8 (specimen) AM EST 12:58 AM EST Resulting Agency Comment Spec In Lab Angela Swenson MD BLOOD BANK ORDERABLES Performing Organization Address City/[facility]/[place] [address] ABO/Rh Typing (07/27/2017 12:53 AM EST) P athologist Signature ABORh Type O Pos [facility] Specimen Anatomical Collection Method Collection Time Receive d Time (Source) Location / / Volume Laterality Blood specimen 07/27/2017 12:53 8 (specimen) AM EST 12:58 AM EST Resulting Agency Comment Spec In Lab Angela Swenson MD BLOOD BANK ORDERABLES Performing Organization Address [facility] [place] [address] (ABNORMAL) Prothrombin Time (07/27/2017 12:53 AM EST) P athologist Signature PT 19.1 (H) 11.8 - 14.0 [facility] LABORATORY INR 1.6 (H) 0.9 - 1.1 [facility] Comment: An INR <2.0 indicates [...] Location / / Volume Laterality Blood specimen 07/27/2017 12:53 8 1:00 (specimen) AM EST AM EST Resulting Agency Comment Spec In Lab Angela Swenson MD HEMATOLOGY ORDERABLES Performing Organization Address City/[facility] [place] [address] (ABNORMAL) Basic Metabolic Panel (non-fasting) (07/27/2017 12:53 AM EST) P athologist Signature Glucose Lvl 95 65 - 199 [facility] mg/dL [facility] Comment: Diabetes: >=200 mg/dL plus symp toms BUN 37 (H) 10 - 20 mg/dL [facility] Creatinine 1.49 0.80 - 1.50 mg/dL [facility] LABORATORY Sodium 137 135 - 145 mmol/L [facility] Potassium 5.1 (H) 3.5 - 5.0 mmol/L [facility] Comment: Please note: ??Patients with WBC >100,00 0 may have falsely elevated Potassium levels. ??For accurate Potassium quantif ication in these patients send serum separator tube (gold top) for subsequent determinations. ??Contact the Clinical Chemistry Laboratory if there are any qu estions. Chloride 96 (L) 98 - 107 mmol/L [facility] CO2 28 22 - 31 mmol/L [facility] Anion Gap 13 5 - 15 mmol/L [facility] Calcium 8.6 8.5 - 10.5 mg/dL [facility] Estimated GFR 46 (L) >=60 [facility] Comment: The reported eGFR should be multiplied b y 1.2 for patients. The MDRD is not an appropriate measure o f renal function for patients with body mass extremes or in patients with acute kidney failure. 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 Right foot pain Pain in limb ASHD (arteriosclerotic heart disease) Coronary atherosclerosis of unspecified type of vessel, [place] or graft Cardiomyopathy, ischemic Other specified forms of chronic ischemi c heart disease Seborrheic psoriasis- scalp and ingtergl uteal area Other psoriasis MARIA VICTORIA (obstructive sleep apnea) on CPAP Obstructive sleep apnea (adult) (pediatr ic) Critical lower limb ischemia Unspecified circulatory system disorder BPH (benign prostatic hyperplasia) Unspecified hyperplasia of prostate with out urinary obstruction and other lower urinary tract symptoms (LUTS) Gastroesophageal reflux disease Esophageal reflux documented in this encounter Admitting Diagnoses Diagnosis Ischemic foot Unspecified circulatory system disorder documented in this encounter Administered Medications Inactive Administered Medications - up to 3 most recent administrations Medication Order MAR Action Action Date Dose Rate Site acetaminophen (TYLENOL) tablet Given 07/27/2017 2:08 PM EST 1,00 0 mg 1,000 mg 1,000 mg, Oral, EVERY 8 HOURS SCHEDULED, First dose on Wed07/27/17 at 0600, Until Discontinued, Maximum dose of acetaminophen is 4000 mg from all sources in 24 hours., Routine Given 07/27/2017 5:06 AM EST 1,000 mg AMIOdarone (CORDARONE; PACERONE) tablet 400 Given 08/2017 10:13 AM EST 400 mg mg 400 mg, Oral, DAILY, First dose on Wed07/27/17 at 0900, Until Discontinued, Routine aspirin EC tablet 81 mg Given 07/27/2017 10:14 AM EST 81 mg 81 mg, Oral, EVERY OTHER DAY, First dose on Wed07/27/17 at 0900, Until Discontinued, Routine dextrose 50% IV syringe 25-50 mL 25-50 mL (12.5-25 g), Intravenous, EVERY 1 HOUR PRN, S tarting on Wed07/27/17 at 0400, Until Wed07/27/17 at 1726, Low bloo d sugar, For BG 50-70: 120 mL Juice [...] the active insulin., Routine enoxaparin (LOVENOX) injection 127.5 mg Given 07/27/2017 9:00 AM EST 127.5 mg 127.5 mg (rounded from 127.2 mg = 1.5 mg/kg/dose ? 84.8 kg), Subcutaneous, EVERY 24 HOURS, First dose on Wed07/27/17 at 0900, Until Discontinued, Routine fentaNYL (DURAGESIC) 12 Patch Applied 07/27/2017 2:00 PM 1 patch 03- Shoulder mcg/hr patch 1 patch EST (Left) 1 patch, Transdermal, EVERY 72 HOURS, First dose on Wed07/27/17 at 1400, Until Discontinued, Place fentaNYL patch, Routine furosemide (LASIX) tablet 20 mg Given 07/27/2017 10:14 AM EST 20 mg 20 mg, Oral, DAILY, First dose on Wed07/27/17 at 0900, Until Discontinued, Routine glucagon (human recombinant) injection S olR 1 mg 1 mg, Intramuscular, EVERY 1 HOUR PRN, S tarting on Wed07/27/17 at 0400, Until Wed07/27/17 at 1726, Low blood sugar, For B G 50-70: 120 mL Juice or Regular (not diet) soda OR 12.5 gram (25 mL) Dextrose 50% I V OR, if no IV access, 1 mg Glucagon IM. Recheck BG in 30 minutes. May repeat j uice, dextrose or glucagon once per episode For BG less than 50: 240 mL Juice or R egular (not diet) soda OR 25 grams (50 mL) Dextrose 50% IV OR, if no IV access, 1 m g Glucagon IM. Recheck BG in 30 minutes. May repeat juice, dextrose, or glucagon once per episode. To avoid extravasation, push Dextrose 50% SLOWLY (3 mL over 1 mi nute) in a patent, running IV, preferably a central line. For persistent hypoglyce ajit, consider longer-acting treatment for the duration of the active insulin., Routine HYDROmorphone (DILAUDID) injection 0.5 m g Given 07/27/2017 12:54 AM EST 0.5 mg 0.5 mg, Intravenous, ONCE, 1 dose, On Wed07/27/17 at 0043, STAT HYDROmorphone (DILAUDID) injection 1 mg Given 07/27/2017 1:49 AM EST 1 mg 1 mg, Intravenous, ONCE, 1 dose, On Wed07/27/17 at 0145, STAT HYDROmorphone (DILAUDID) tablet 2 mg Given 07/27/2017 5:05 AM EST 2 mg 2 mg, Oral, EVERY 4 HOURS PRN, Starting on Wed07/27/17 at 0403, Until Wed07/27/17 at 1726, Pain, for mild pain (1-3), May give an additional 2 mg once if pain not relieved in 30-60 minutes., Routine HYDROmorphone (DILAUDID) tablet 4 mg 4 mg, Oral, EVERY 4 HOURS PRN, Starting on Wed07/27/17 at 0403, Until Wed07/27/17 at 1726, Pain, for moderate pain (4-6), May give an additional 2 mg once if pain not relieved in 30-60 minutes., Routine insulin lispro (humaLOG) VIAL Given 07/27/2017 12:04 PM EST 2 Un its Left Arm injection 1-4 Units 1-4 Units, Subcutaneous, 3 TIMES DAILY BEFORE MEALS, First dose on Wed07/27/17 at 0730, Until Discontinued, CORRECTION BOLUS Sensitive to insulin [...] so., Routine levothyroxine (SYNTHROID) tablet 175 mcg Given 07/27/2017 6:09 AM EST 175 mcg 175 mcg, Oral, DAILY, First dose (after last reorder) on Wed07/27/17 at 0600, Until Discontinued, STAT lisinopril (PRINIVIL;ZESTRIL) tablet 10 mg 10 mg, Oral, DAILY, First dose (after la st reorder) on Wed07/27/17 at 1300, Until Discontinued, Routine meTOPROLOL tartrate (LOPRESSOR) tablet 2 5 mg Given 07/27/2017 10:14 AM EST 25 mg 25 mg, Oral, 2 TIMES DAILY, First dose on Wed07/27/17 at 0900, Until Discontinued, Routine sodium chloride 0.9 % flush 5 mL Given 07/27/2017 9:00 AM EST 5 mLs 5 mL, Intravenous, 2 TIMES DAILY, First dose on Wed07/27/17 at 0900, Until Discontinued, Routine documented in this encounter Active and Recently Administered Medications Times are shown in EST. Scheduled Medication Order 07/25/2017 07/26/2017 07/27/2017 acetaminophen (TYLENOL) tablet 1,000 mg 0506 (Given - Provider: Tamiko Roblero RN)1408 (Given - Provider: Zulma Arndt RN) 1,000 mg, Oral, EVERY 8 HOURS SCHEDULED, First dose on Wed07/27/17 at 0600, Until Discontinued, Maximum dose of acetaminophen is 4000 mg from all sources in 24 hours., Routine AMIOdarone (CORDARONE; PACERONE) tablet 400 mg 1013 (Given - Provider: Zulma Arndt RN) 400 mg, Oral, DAILY, First dose on Wed at 0900, Until Discontinued, Routine aspirin EC tablet 81 mg 1014 (Gi keke - Provider: Zulma Arndt RN) 81 mg, Oral, EVERY OTHER DAY, First dose on Wed07/27/17 at 0900, Until Discontinued, Routine atorvastatin (LIPITOR) tablet 40 mg 40 mg, Oral, EVERY EVENING, First dose o n Wed07/27/17 at 1700, Until Discontinued, Routine enoxaparin (LOVENOX) injection 127.5 mg 0900 (Given - Provider: Zulma Arndt RN) 127.5 mg (rounded from 127.2 mg = 1.5 mg /kg/dose ? 84.8 kg), Subcutaneous, EVERY 24 HOURS, First dose on Wed07/27/17 at 0900, Until Discontinued, Routine fentaNYL (DURAGESIC) 12 mcg/hr patch 1 patch (CANCELED) 1400 (Patch Applied - Provider: Zulma Arndt RN) 1 patch, Transdermal, EVERY 72 HOURS, Fi rst dose on Wed07/27/17 at 1400, Until Discontinued, Place fentaNYL patch, Routine furosemide (LASIX) tablet 20 mg 1014 (Given - Provider: Zulma Arndt RN) 20 mg, Oral, DAILY, First dose on 09/12 at 0900, Until Discontinued, Routine HYDROmorphone (DILAUDID) injection 0.5 mg (COMPLETED) 0054 (Given - Provider: Carmen Knowles RN) 0.5 mg, Intravenous, ONCE, 1 dose, Wed07/27/17 at 0043, STAT HYDROmorphone (DILAUDID) injection 1 mg (COMPLETED) 0149 (Given - Provider: Jazmín Proctor RN) 1 mg, Intravenous, ONCE, 1 dose, Wed07/27/17 at 0145, STAT insulin glargine VIAL injection 20 Units 09 (Due) 20 Units, Subcutaneous, EVERY 24 HOURS, First dose on Wed07/27/17 at 0900, Until Discontinued, Routine insulin lispro (humaLOG) VIAL injection 1-4 Units(Linked Group 1 ) 0730 (Not Given - Provider: Tamiko Roblero RN - Reason: Order parameters not met)1204 (Given - Provider: Zulma Arndt RN) 1-4 Units, Subcutaneous, 3 TIMES DAILY B EFORE MEALS, First dose on Wed07/27/17 at 0730, Until Discontinued, CORRECTION BOLUS Sensitive to insulin lean patient or total daily dose of all insulin neede d to achieve glycemic control less than 30 units BG 140 - 160 Give 1 unit BG 161 - 200 Give 2 units BG 201 - 240 Give 3 units BG greater than 240, give 4 units and recheck BG in 2 hours. If less than 24 0 after two hours, give no insulin and r esume prior schedule. If BG remains greater than 240, repeat 4 units (no more than three times) & call for new basal insulin orders. DO NOT hold if NPO, unless specifically told to do so., Routine levothyroxine (SYNTHROID) tablet 175 mcg 0609 (Given - Provider: Tamiko Roblero RN) 175 mcg, Oral, DAILY, First dose on Wed07/27/17 at 0600, Until Discontinued, STAT lisinopril (PRINIVIL;ZESTRIL) tablet 10 mg 1300 (Not Given - Provider: Zulma Arndt RN - Reason: Medication not available) 10 mg, Oral, DAILY, First dose on 09/12 at 1300, Until Discontinued, Routine meTOPROLOL tartrate (LOPRESSOR) tablet 25 mg 1014 (Given - Provider: Zulma Arndt RN) 25 mg, Oral, 2 TIMES DAILY, First dose o n Wed07/27/17 at 0900, Until Discontinued, Routine sodium chloride 0.9 % flush 5 mL 0900 (Given - Provider: Zulma Arndt RN) 5 mL, Intravenous, 2 TIMES DAILY, First dose on Wed07/27/17 at 0900, Until Discontinued, Routine PRN Medication Order 07/25/2017 07/26/2017 07/27/2017 dextrose 50% IV syringe 25-50 mL(Linked Group 2) 25-50 mL (12.5-25 g), Intravenous, EVERY 1 HOUR PRN, Starting Wed07/27/17 at 0400, Until Wed07/27/17 at 1726, Low blood sugar, For BG 50-70: 120 mL Juice or Regular (not diet) soda OR 12.5 gram (25 mL) Dextrose 50% IV OR, if no IV access, 1 m g Glucagon IM. Recheck BG in 30 minutes. [...] per episode. To avoid extravasation, push Dextrose 5 0% SLOWLY (3 mL over 1 minute) in a amos nt, running IV, preferably a central line. For persistent hypoglycemia, consider longer-acting treatment for the duration of the active insulin., Routine glucagon (human recombinant) injection SolR 1 mg(Linked Group 2) 1 mg, Intramuscular, EVERY 1 HOUR PRN, S tarting e 07/27/17 at 0400, Until Wed07/27/17 at 1726, Low blood sugar, For BG 50-70: 120 mL Juice or Regular (not diet) soda OR 12.5 gram (25 mL) Dextrose 50% I V OR, if no IV access, 1 mg Glucagon IM. Recheck BG in 30 minutes. May repeat juice, dextrose or glucagon once per episode For BG less than 50: 240 mL Juice or Regular (not diet) soda OR 25 grams (5 0 mL) Dextrose 50% IV OR, if no IV acces s, 1 mg Glucagon IM. Recheck BG in 30 minutes. May repeat juice, dextrose, or glucagon once per episode. To avoid extravasation, push Dextrose 50% SLOWLY (3 m L over 1 minute) in a patent, running IV , preferably a central line. For persistent hypoglycemia, consider longer-acting treatment for the duration of the active insulin., Routine HYDROmorphone (DILAUDID) tablet 2 mg(Linked Group 3) 0505 (Given - Provider: Tamiko Roblero RN) 2 mg, Oral, EVERY 4 HOURS PRN, Starting e 07/27/17 at 0403, Until 07/27/17 at 1726, Pain, for mild pain (1-3), May give an additional 2 mg once if pain not relieved in 30-60 minutes., Routine HYDROmorphone (DILAUDID) tablet 4 mg(Linked Group 3) 0505 (See Alternative - Provider: Tamiko Roblero RN) 4 mg, Oral, EVERY 4 HOURS PRN, Starting 07/27/17 at 0403, Until 07/27/17 at 1726, Pain, for moderate pain (4-6), May give an additional 2 mg once if pain not relieved in 30-60 minutes., Routine lidocaine (XYLOCAINE) 10 mg/mL (1 %) injection 3 mg 3 mg (0.3 mL), Subcutaneous, ONCE PRN, 1 dose, Starting 07/27/17 at 0425, Until 07/27/17 at 1726, for discomfort with PIV insertion, Routine sodium chloride 0.9 % flush 5-20 mL 5-20 mL, Intravenous, EVERY 1 MIN PRN, S tarting Wed07/27/17 at 0425, Until Wed07/27/17 at 1726, flush, Flush pertains to all indwelling lines. Flush per protocol found in the job aid using the link provided on this medication record., Routine Linked Groups Order Group 1: POCT Fingerstick Glucose (CANCELED) Routine, 4 TIMES DAILY BEFORE MEALS & AT BEDTIME, First occurrence on Wed07/27/17 at 0700, Until Specified
Consider choosing FOUR TIMES A DAY BEFORE MEALS AND AT BEDTIME as frequency for : Patients who have good hypoglycemia aw areness: -Patients who are eating meals during the day and sleeping at night -Patient who are otherwise stable And insulin lispro (humaLOG) VIAL injection 1-4 UnitsJump to med 1-4 Units, Subcutaneous, 3 TIMES DAILY B EFORE MEALS, First dose on Wed07/27/17 at 0730, Until Discontinued
CORRECTION BOLUS Sensitive to insulin lean patient or total gomez y dose of all insulin needed to achieve glycemic control less than 30 units BG 140 - 160 Give 1 unit BG 161 - 200 Give 2 units BG 201 - 240 Give 3 units&nb sp; BG greater than 240, give 4 units and recheck BG in 2 hours. If less than 240 after two hours, give no insulin and resume prior schedule. If BG remains greater than 240, repeat 4 units (no more than three times) & call for new basal insulin orders. DO NOT hold if NPO, unless specifically told to do so.
Routine Group 2: dextrose 50% IV syringe 25-50 mLJump to med 25-50 mL (12.5-25 g), Intravenous, EVERY 1 HOUR PRN, Starting Wed07/27/17 at 0400, Until Wed07/27/17 at 1726, Low blood sugar
For BG 50- 70: 120 mL Juice or Regular (not diet) soda OR 12.5 gram (25 mL) Dextrose 50% IV OR, if no IV access, 1 mg Glucagon IM. Recheck BG in 30 minutes. May repeat juice, dextrose or glucagon once per episod e For BG less than 50: 240 mL Jui ce or Regular (not diet) soda OR 25 grams (50 mL) Dextrose 50% IV OR, if no IV access, 1 mg Glucagon IM. Recheck BG in 30 minutes. &nb sp;May repeat juice, dextrose, or glucag on once per episode. To avoid extravasation, push Dextrose 50% SLOWLY (3 mL over 1 minute) in a patent, running IV, preferably a central line.&nbsp ;For persistent hypoglycemia, consider longer-acting treatment for the duration of the active insulin.
Routine Or glucagon (human recombinant) injection SolR 1 mgJump to med 1 mg, Intramuscular, EVERY 1 HOUR PRN, S tarting Wed07/27/17 at 0400, Until Wed07/27/17 at 1726, Low blood sugar
For BG 50-70: 120 mL Juice or Regular (not diet) soda OR 12.5 gram (25 mL) Dextrose 50% IV OR, if no I V access, 1 mg Glucagon IM. Recheck BG in 30 minutes. May repeat juice, dextrose or glucagon once per episode F or BG less than 50: 240 mL Juice or Regu lar (not diet) soda OR 25 grams (50 mL) Dextrose 50% IV OR, if no IV access, 1 mg Glucagon IM. Recheck BG in 30 minutes. May repeat juice, dextrose, or glucagon once per ep isode. To avoid extravasation, push Dextrose 50% SLOWLY (3 mL over 1 minute) in a patent, running IV, preferably a central line. For persist ent hypoglycemia, consider longer-acting treatment for the duration of the active insulin.
Routine Group 3: HYDROmorphone (DILAUDID) tablet 2 mgJump to med 2 mg, Oral, EVERY 4 HOURS PRN, Starting 07/27/17 at 0403, Until 07/27/17 at 1726, Pain, for mild pain (1-3)
May give an additional 2 mg once if pain not relieved in 30-60 minutes.
Routine Or HYDROmorphone (DILAUDID) tablet 4 mgJump to med 4 mg, Oral, EVERY 4 HOURS PRN, Starting 07/27/17 at 0403, Until 07/27/17 at 1726, Pain, for moderate pain (4-6)
May give an additional 2 mg once if pain not relieved in 30-60 minutes.
Routine documented in this encounter Care Teams Electronic Component Processor Relationship Specialty Start Date End Date Lovely Vicente MD PCP - General 04/16/[address] [place] [address] [address] [place] [address] documented as of this encounter
--- OUTSIDE RECORDS SUMMARY | 2022-02-06 13:36 | XMS_ITS | Encounter Summary ---
:1945 Author Organization [facility] [place] [address] Care Team Providers Name Role Phone Lovely Vicente MD Primary Care Provider Encounter Details Date Type Department Care Team Description 07/24/2017 Telephone Vascular Surgery Melba [facility] [place] [address] [facility] [phone] VASCULAR SURGERY [place], [place] [address] (Wo rk) Social History Tobacco Use Types Packs/Day Years Used Date Former Smoker Cigarettes 3 5 Quit: 07/26/18 69 Smokeless Tobacco: Never Used Alcohol Use Standard Drinks/Week Comments No 0 (1 standard drink = 0.6 oz pure alcoho l) Sex Assigned at Date Recorded Not on file documented as of this encounter Miscellaneous Notes Telephone Encounter - Melba Bob MD - 07/24/2017 1:14 PM EST Called by COLE of Mr. Fatima. Mr. Fatima is a 72 y.o.??male with a PMH of hypertension, hyperlipidemia, DM 2, MARIA VICTORIA on CPAP who wasadmitted 06/25/17 with anterior STEMI who underwent a three- vessel CABG on 07/07. ??His hospital staywas complicated by A. fib with RVR and he was discharged on Coumadin. ??He presented to [facility] on 07/20 with mottled toes on the right foot. 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 The mottled toes were thought to be embolic in nature and were not requiring intervention at that timeand he was discharged home on a lovenox bridge to coumadin. Most recent INR 2.7 on 07/22. Visiting RN saw patient for first time today, reports RLE edematous, warm with palpable pulses but blair discoloration of his toes and associated pain in his toes for which he has been taking dilaudid. Denies painin groin at site of thrombosed pseudoaneurysm. Per the prior notes, the mottling of the toes was though to be embolic in nature and the current discoloration and pain may represent progressive demarcation of the tissues subjected to ischemia. Foot and toes are reported to be warm with no evidence of infection or gangrene at this time per visiting RN. Currently therapeutic on anticoagulation. Recommended elevation of the extremity for the edema and pain control. Instructed RN to send patient to the ED if his symptoms progress or if he has any concerns, otherwise will schedule for clinic follow-up on Wednesday. documented in this encounter Plan of Treatment Upcoming Encounters Date Type Specialty Care Team Description 02/19/2022 Laboratory Appointment Lab 02/19/2022 Office Visit Cardiology Liz Poole PA [facility] er Cardiology Dept [place], [place] [address] (Wo rk) 03/12/2022 Office Visit Cardiology Vitaliy Nobles MD [facility] ER CARDIOLOGY [place], [place] [address] (Wo lissa) documented as of this encounter Visit Diagnoses Not on filedocumented in this encounter Care Teams Chief Sustainability Officer Relationship Specialty Start Date End Date Lovely Vicente MD PCP - General 04/16/[address] [place] [address] [address] [place] [address] documented as of this encounter
--- OUTSIDE RECORDS SUMMARY | 2022-02-06 13:37 | XMS_ITS | Encounter Summary ---
:1945 Author Organization [facility] [place] [address] Care Team Providers Name Role Phone Lovely Vicente MD Primary Care Provider Encounter Details Date Type Department Care Team Description 07/08/2017 Orders Only Cardiology [facility] [place] [address] Social History Tobacco Use Types Packs/Day [...] Poole PA [facility] er Cardiology Dept [place], [place] [address] (Wo rk) 03/12/2022 Office Visit Cardiology Vitaliy Nobles MD [facility] CARDIOLOGY [place], [place] [address] (Wo rk) documented as of this encounter Procedures Procedure Name Priority Date/Time Associated Diagnosis Comme nts TRANSESOPHAGEAL Routine 07/08/2017 Results for this ECHOCARDIOGRAM (AVELINO) procedu re are in the results section. documented in this encounter Results Transesophageal Echocardiogram (AVELINO) (07/08/2017) Specimen (Source) Anatomical Location Collection Method / Collectio n Time Received Time / Laterality Volume 07/08/2017 Narrative [facility] - 07/08/2017 12:25 PM ES T Procedure: ?Transesophageal Echocardiogram Patient: ?NATALYA Mccollum ? (Age): 1945(72y) Med Rec#: ? [id number] ?Sex: ?M ? Site Loc: ? Ht / Wt: ??(cm)/ (kg) ? Pt. Loc: ? Study Date: ?? 07/07/2017 ?Pt. Type: Tape: ? Referring: Yuan Retana Reading: Yifan Perez MD ([id number]) Performing: Yifan Perez MD ([id number]) Diagnosis: SUMMARY: 1. [facility] diagnosis and evaluation of hemodynamics , overall cardiac function, and valvular pathologies as indicated. AVELINO p alber was passed atraumatically after induction and removed in a similar fashion before emergence. 2. Pre-Bypass: LV was moderatley to oliver rely depressed. ??EF of 20-30% with RWMA noted as on TTE. ??The IABP wa s in good position. ??AVELINO was used to facilitate CS cannulation. 3. Post-Bypass: Global LV and RV functio n were improved on inotropes. LVEF is 40 %. There is no change in valv ular pathologies. There is no evidence of aortic dissection post decan nulation. WHile some global hypokinesis is presetn, all segments fred wed some inprovement with the mid inferior and anteriro segments likel y still more severely dysfunctional. ??LV diastolic volume is ??improved from preop as well as global systolic function. 4. The IABP was in good position, and no evidence of aotic dissection was imaged Findings ? : Left Ventricle: ? The left ventricle is moderately dilated. ?Global left ventricular systolic f unction is severely reduced. Ejection fraction is estimated to be 25% . ?The visually estimated left ventri cular ejection fraction is ?There are segmental left ventricul ar wall motion abnormalities involving the ?The ??basal anteroseptal, basal an terior, basal anterolateral, basal inferolateral, basal inferior, basal inf eroseptal, mid anteroseptal, mid anterior, mid anterolateral, mid inferol ateral, mid inferior, mid inferoseptal, apical septal, apical ante rior, apical lateral, and apical inferior wall segments are hypoki netic (score 2). ?Overall wallmotion score index is ??2.00 Left Atrium: ? The left atrium is pr obably normal in size. ?There is no patent foramen ovale v isualized. ?The patent foramen ovale is demons trated by color Doppler. Right Ventricle: ? The right ventric le is mildly dilated. ?Right ventricular global systolic function is low normal. Right Atrium: ? The right atrium is probably normal in size. Aortic Valve: ? The aortic valve is tricuspid. ?The aortic valve leaflets are mild ly thickened. ?No aortic leaflet calcification is visualized. ?There is no evidence of aortic collette ve stenosis. ?There is no evidence of aortic reg urgitation. Mitral Valve: ? The mitral valve yoan flets appear normal. ?The mitral valve leaflets are mild ly thickened. ?Mild mitral leaflet calcification is visualized. ?There is no evidence of mitral markie nosis. ?There is mild (1+/4+) mitral regur gitation present. Tricuspid Valve: ? The tricuspid collette ve leaflets are morphologically normal. ?There is no tricuspid valve stenos is. ?There is trace tricuspid regurgita tion present. Aorta: ? There is evidence of grade 2 (extensive intimal thickening) atheromatous disease of the ascending ao rta. ?There is evidence of grade 3 (athe courtney <= 5mm) atheromatous disease of the aortic arch. ?There is evidence of grade 3 (athe courtney <= 5mm) atheromatous disease of the descending thoracic aorta. Wall Motion: Segment Name ?Rest ? Base-Anteroseptal ?? Hypokinetic ? Base-Anterior ? Hypokinetic ? Base-Anterolateral ??Hypokinetic ? Base-Posterolateral Hypokinetic ? Base-Inferior ? Hypokinetic ? Base-Inferoseptal ?? Hypokinetic ? Mid-Anteroseptal ?Hypokinetic ? Mid-Anterior ?Hypokinetic ? Mid-Anterolateral ?? Hypokinetic ? Mid-Posterolateral ??Hypokinetic ? Mid-Inferior ?Hypokinetic ? Mid-Inferoseptal ?Hypokinetic ? [place]-Septal ? Hypokinetic ? [place]-Anterior ? Hypokinetic ? [place]-Lateral ?Hypokinetic ? [place]-Inferior ? Hypokinetic ? [place]-Tip ?Not Seen ? This report has been electronically sign ed by: _ Yifan Perez MD ? 07/08/2017 12 :25:18 Images reviewed and interpretation ver ied [facility] Cardiac Ultrasound Laboratory Procedure Note Yifan Perez MD - 07/08/2017Formatt ing of this note might be different from the original. Procedure: Transesophageal Echocardiogra m Patient: NATALYA MCBRIDE(Age): [birth year]72y) Med Rec#: [id number] Sex: M Site Loc: Ht / Wt: (cm)/ (kg) Pt. Loc: Study Date: 07/07/2017 Pt. Type: Tape: Referring: Yuan Retana Reading: Yifan Perez MD ([id number]) Performing: Yifan Perez MD ([id number]) Diagnosis: SUMMARY: 1. [facility] for the diagnosis and evaluation of hemodynamics , overall cardiac function, and valvular pathologies as indicated. AVELINO p robe was passed atraumatically after induction and removed in a similar fashion before emergence. 2. Pre-Bypass: LV was moderatley to oliver rely depressed. EF of 20-30% with RWMA noted as on TTE. The IABP was in good position. AVELINO was used to facilitate CS cannulation. 3. Post-Bypass: Global LV and RV functio n were improved on inotropes. LVEF is 40 %. There is no change in valv ular pathologies. There is no evidence of aortic dissection post decan nulation. WHile some global hypokinesis is presetn, all segments fred wed some inprovement with the mid inferior and anteriro segments likel y still more severely dysfunctional. LV diastolic volume is im proved from preop as well as global systolic function. 4. The IABP was in good position, and no evidence of aotic dissection was imaged Findings : Left Ventricle: The left ventricle is mo derately dilated. Global left ventricular systolic functi on is severely reduced. Ejection fraction is estimated to be 25% . The visually estimated left ventricular ejection fraction is There are segmental left ventricular wa ll motion abnormalities involving the The basal anteroseptal, basal anterior, basal anterolateral, basal inferolateral, basal inferior, basal inf eroseptal, mid anteroseptal, mid anterior, mid anterolateral, mid inferol ateral, mid inferior, mid inferoseptal, apical septal, apical ante rior, apical lateral, and apical inferior wall segments are hypoki netic (score 2). Overall wallmotion score index is 2.00 Left Atrium: The left atrium is probably normal in size. There is no patent foramen ovale visual ized. The patent foramen ovale is demonstrate d by color Doppler. Right Ventricle: The right ventricle is mildly dilated. Right ventricular global systolic funct ion is low normal. Right Atrium: The right atrium is probab ly normal in size. Aortic Valve: The aortic valve is tricus pid. The aortic valve leaflets are mildly th ickened. No aortic leaflet calcification is visu alized. There is no evidence of aortic valve st enosis. There is no evidence of aortic regurgit ation. Mitral Valve: The mitral valve leaflets appear normal. The mitral valve leaflets are mildly th ickened. Mild mitral leaflet calcification is vi sualized. There is no evidence of mitral stenosis . There is mild (1+/4+) mitral regurgitat ion present. Tricuspid Valve: The tricuspid valve yoan flets are morphologically normal. There is no tricuspid valve stenosis. There is trace tricuspid regurgitation present. Aorta: There is evidence of grade 2 (ext ensive intimal thickening) atheromatous disease of the ascending ao rta. There is evidence of grade 3 (atheroma <= 5mm) atheromatous disease of the aortic arch. There is evidence of grade 3 (atheroma <= 5mm) atheromatous disease of the descending thoracic aorta. Wall Motion: Segment Name Rest Base-Anteroseptal Hypokinetic Base-Anterior Hypokinetic Base-Anterolateral Hypokinetic Base-Posterolateral Hypokinetic Base-Inferior Hypokinetic Base-Inferoseptal Hypokinetic Mid-Anteroseptal Hypokinetic Mid-Anterior Hypokinetic Mid-Anterolateral Hypokinetic Mid-Posterolateral Hypokinetic Mid-Inferior Hypokinetic Mid-Inferoseptal Hypokinetic [place]-Septal Hypokinetic [place]-Anterior Hypokinetic [place]-Lateral Hypokinetic [place]-Inferior Hypokinetic [place]-Tip Not Seen This report has been electronically sign ed by: _ Yifan Perez MD 07/08/2017 12:25:18 Images reviewed and interpretation elvie hwang [facility] Cardiac Ultrasound Laboratory Unknown ECHO ORDERABLES Performing Organization Address City/State/ZIP Code Phon e Number [facility] documented in this encounter Visit Diagnoses Not on filedocumented in this encounter Care Teams Rotor Winder Relationship Specialty Start Date End Date Lovely Vicente MD PCP - General 04/16/[address] [place] [address] documented as of this encounter
--- OUTSIDE RECORDS SUMMARY | 2022-02-06 13:37 | XMS_ITS | Encounter Summary ---
:1945 Author Organization [facility] [place] [address] Care Team Providers Name Role Phone Lovely Vicente MD Primary Care Provider Reason for Referral Consultation (Routine) - Closed Specialty Diagnoses / Referred By Contact Referred To Contact Procedures Cardiac Rehabilitation Diagnoses S/P CABG x 3 Yuan Webber, Cardiac Rehab, [address] [place] CARDIOTHORACIC [address] [place] [address] Referral ID Status Reason Start Date Expiration Date Visits V isits Requested Authorized [id number] Closed Consult, 07/14/2017 01/10/2018 36 36 Test & Treat Reason for Visit Auth/Cert Specialty Diagnoses / Procedures Referred By Contact Refer red To Contact Diagnoses STEMI (ST elevation myocardial infarction) NSTEMI STEMI Procedures CARDIAC CATHETERIZATION NAYE IPI Referral ID Status Reason Start Date Expiration Date Visits Requ ested Visits Authorized [id number] 1 1 Encounter Details Date Type Department Care Team Description 07/05/2017 - Hospital Encounter Cardiac Special Daphne Shahid MD [facility] [place] [address] Non-ST elevation myocardial infarction ( NSTEMI); 07/14/2017 Care Unit Yuan Preciado MD [facility] [place] [address] S/P CABG x 3 [place] [id number] Social History Tobacco Use Types Packs/Day Years Used Date Former Smoker Cigarettes 3 5 Quit: 07/26/18 68 Smokeless Tobacco: Never Used Alcohol Use Standard Drinks/Week Comments No 0 (1 standard drink = 0.6 oz pure alcoho l) Sex Assigned at Date Recorded Not on file documented as of this encounter Last Filed Vital Signs Vital Sign Reading Time Taken Comments Blood Pressure 135/79 07/14/2017 11:20 AM EST Pulse 79 07/14/2017 11:20 AM EST Temperature 36.8 ??C (98.2 ??F) 07/14/2017 11:20 AM EST Respiratory Rate 16 07/14/2017 11:20 AM EST Oxygen Saturation 98% 07/14/2017 11:20 AM EST Inhaled Oxygen Concentration - - Weight 90 kg (198 lb 6.6 oz) 07/14/2017 5:08 AM EST Height 172.7 cm (5' 8) 07/05/2017 4:47 PM EST Body Mass Index 30.17 07/05/2017 4:47 PM EST documented in this encounter Discharge Summaries Martha Teague APRN - 07/14/2017 9:38 AM EST Inpatient - Discharge Summary Patient Name: Gregory Hoang Patient Age: 72 y.o. Birthdate: 1945 Language: Hungarian Race: White Ethnicity: Not nor Admit Date: 07/05/2017 Discharge Date: 07/14/2017 Attending Physician: Yuan Webber MD Follow-up Recommendations for Providers: Please continue routine management of cardiovascular risk factors including blood pressure, lipids, glucose, etc. Please note any changes to medications. Patient to follow-up with PCP, Lovely Vicente MD, in 1-2 weeks. An appointment has been made for you on 07/22/2017, , @ 1:20p Patient to follow-up with New Car Sales Manager/heart failure team in one week. An appointment will be made for you. You may call [phone] Patient to follow-up with Cardiac Surgery, Dr. Yuan Webber, in ~ 4 weeks with CXR, EKG. Inpatient Provider Contact Information: [facility]iac [facility] [place] [id number] FAX [phone] Discharge Diagnoses (Hospital Problems) Primary Diagnoses: CAD Secondary Diagnoses: Post-operative atrial fibrillation on coumadin Other Diagnoses (Chronic Problems): Active Non-Hospital Problems Diagnosis ??? BPH (benign prostatic hyperplasia) ??? Atypical nevus of abdominal wall ??? Urinary retention ??? MARIA VICTORIA (obstructive sleep apnea) on CPAP ??? Goiter ??? Seborrheic psoriasis- scalp and ingtergluteal area ??? Skin lesion of chest wall ??? Melanoma Discharged to: Patient discharged to home Functional and Cognitive Status: baseline Discharge Conditions/Prognosis: Stable and improving Past Medical History: Diagnosis Date ??? BPH (benign prostatic hyperplasia) 11/28/2013 ??? Melanoma 2006 mid back ??? Urinary retention 04/05/2013 Past Surgical History: Procedure Laterality Date ??? PRG SOMATOSENSORY TEST, ANY/ALL PER. NERVES, TRUNK OR HEAD 03/28/2013 FACIAL NERVE MONITORING, SETUP performed by Manny Mcknight MD at [facility] MAIN OR ??? PRO CABG, ARTERIAL, SINGLE N/A 07/07/2017 @CABG, USING ARTERIAL GRAFT;SINGLE ARTERIAL GRAFT (WRVU 33.75) performed by Yuna Webber MD at [facility] MAIN OR ??? PRO CABG, ARTERY-VEIN, TWO N/A 07/07/2017 @CABG, TWO VENOUS GRAFTS & ARTERIAL GRAFT (WRVU 7.93) performed by Yuan Webber MD at [facility] MAIN OR ??? PRO COLONOSCOPY, REMV LESN, SNARE 01/16/2014 COLONOSCOPY, POLYPECTOMY, REMOVAL LESION BY SNARE performed by Nohemi Jaimes MD at [facility] ENDOSCOPY ??? PRO ENDOSCOPY W/VIDEO-ASST VEIN HARVEST, CABG Right 07/07/2017 ENDOSCOPIC HARVEST VEIN(S) FOR CABG (WRVU 0.31) performed by Yuan Webber MD at [facility] MAIN OR ??? PRO THYROIDECTOMY 03/28/2013 THYROIDECTOMY, TOTAL OR COMPLETE performed by Manny Mcknight MD at [facility] MAIN OR Prior To Admission Medications Prescriptions Prior to Admission Medication Sig Dispense Refill Last Dose ??? levothyroxine (SYNTHROID) 175 mcg Tablet Take 1 tablet by mouth daily. 90 tablet 3 07/05/2017 [id number] ??? ascorbic acid, vitamin C, (VITAMIN C) 500 mg Tablet Take 500 mg by mouth daily. Winter months only 07/05/2017 at 0600 ??? [DISCONTINUED] LANTUS SOLOSTAR Insulin Pen Inject 22-27 Units subcutaneously nightly. 1 07/04/2017 at 2000 ??? [DISCONTINUED] HUMALOG KWIKPEN Insulin Pen Inject 16-20 Units subcutaneously 3 times daily (withmeals). 1 07/05/2017 at 12 ??? turmeric root extract 500 mg Capsule Take 500 mg by mouth. 07/05/2017 at 0600 ??? meTOPROLOL succinate (TOPROL-XL) 25 mg Tablet Sustained Release 24 hr Take 25 mg by mouth daily.07/04/2017 at 2000 ??? Magnesium 200 mg Tablet Take 500 mg by mouth daily. 07/05/2017 at 1200 ??? fish oil-omega-3 fatty acids 1,000 mg Capsule Take 2 g by mouth daily. 07/04/2017 at 1200 ??? aspirin 81 mg EC tablet Take 81 mg by mouth every other day. 07/05/2017 at 0600 ??? [DISCONTINUED] lisinopril (PRINIVIL;ZESTRIL) 20 mg tablet Take 20 mg by mouth daily. 07/05/2017 at 0600 ??? [DISCONTINUED] metFORMIN (GLUCOPHAGE) 850 mg tablet Take 850 mg by mouth 2 times daily (with meals). Takes 1 tab in morning, 2 tabs in evening 07/05/2017 at 0600 ??? [DISCONTINUED] ACCU-CHEK ELIF PLUS TEST STRP Strip 1 strip by Other route every morning. 1 07/05/2017 at 0600 ??? [DISCONTINUED] BD INSULIN PEN NEEDLE UF MINI 31 gauge x 3/16 Needle 1 each by Other route 4 times daily. 0 Taking at Unknown time ??? fluocinolone acetonide (SYNALAR) 0.01 % external solution Twice daily to less severe areas of psoriasis (Patient not taking: Reported on 06/03/2017) 60 mL 2 Not Taking at Unknown time Updated Allergies/ADRs: No Known Allergies History of Presentation: Mr. Hoang is a 72 y.o. year old male who presented with a several week history of increasingly severe exertional dyspnea and orthopnea. He was ultimately evaluated at an outside hospital and ruled infor non-ST segment elevation MT. This almost certainly represents the residual of a recent transmural infarction with Q waves in his anterior wall. He underwent a cardiac catheterization which had an opportunity to review. This shows severe diffuse epicardial coronary disease. His echocardiogram showssevere LV dysfunction with an ejection fraction of less than 30%. His LVEDP was quite elevated. An intra-aortic balloon pump was placed. He was diuresed and stabilized. He additionally had market hypote nsion on arrival he is now pain-free and with an improvement in his A-a gradient. He has a remote history of thyroid carcinoma. ?? Major Procedures/Operations: 07/06/17 s/p cabg x 3: THOMPSON > LAD, seq SVG >OM1> D1 Hospital Course: Gregory Hoang was admitted to [facility] on 07/05/2017 via the Cardiology Service. During his hospital course, he was taken emergently to the laborer prestressed concrete for an ongoing STEMI. An IABP was placed. He was diuresed and his respiratory status was optimized for the operating room. He was brought to the operating room on 07/06/[address] Yuan Webber performed CABGx3. He tolerated the procedure and was brought to the Cardiovascular Intensive Care Unit for recovery. He initially required the pharmacologic support of intravenous epinephrine, levophed. On POD#1, his intra-aortic balloon pump was removed without complication. He was extubated on POD#2. On POD#2, he went into atrial fibrillation with RVR. He was given an Amiodarone bolus and started tia amiodarone drip. He converted to normal sinus rhythm, but converted back to A fib later in the day. He was rebolused with amiodarone. Patient will be discharged on amiodarone for 30 days and coumadin. All drips were weaned to off. Routine postoperative and home medications were started and a diet wasadvanced. He was started on beta blockade and this was optimized. Diuretics were started and he responded appropriately. By postoperative day # 4 he was transferred to the Intermediate Cardiac Care Unit for continued rehabilitation. All tubes, lines, and epicardial pacing wires were removed without incident. He voided normally after his Ocasio was removed. Anticoagulation plan for discharge is daily ASA and Coumadin He was seen by Physical Therapy and Cardiac Rehabilitation. Sternal precaution education was provided. His discharge plan at this time is to home. The remainder of the his hospital course was uneventful and by postoperative day #7 he had met all criteria for discharge. Pain was controlled on oral medications. He had walked 5 minutes and gone up and down stairs. He was tolerating a regular diet and had a bowel movement. Vital Signs at Discharge: Last set of vitals: BP 135/79 (BP Location (NBP): Right arm) Pulse 79 Temp 36.8 ??C (98.2 ??F) (Oral) Resp 16 Ht 172.7 cm (5' 8) Wt 90 kg (198 lb 6.6 oz) SpO2 98% BMI 30.17 kg/m2 Patient Vitals for the past 168 hrs: Weight 07/14/17 0508 90 kg (198 lb 6.6 oz) 07/13/17 0402 91.2 kg (201 lb 1 oz) 07/12/17 0544 92.7 kg (204 lb 5.9 oz) 07/11/17 0300 91.5 kg (201 lb 11.5 oz) 07/10/17 0435 88.8 kg (195 lb 12.3 oz) 07/08/17 0700 88.2 kg (194 lb 7.1 oz) Current weight: 90kg Admit/Preop weight: 86 kg Pertinent physical exam findings prior to discharge: General: well appearing Neuro: AA&Ox3, no neuro deficits noted Lungs: lungs clear, diminished left base Heart: NSR on tele, regular, S1 S2 audible without murmur Abdomen: soft, non-tender, (+) bowel sounds Ext: trace edema bilaterally Incisions: sternotomy with dressing in place, CDI, no further drainage noted Important Studies and Lab Data: Lab Results Component Value Date WBC 12.2 (H) 07/10/2017 RBC 3.31 (L) 07/10/2017 HGB 9.8 (L) 07/10/2017 HCT 30.0 (L) 07/10/2017 PLATELET 135 (L) 07/10/2017 Recent Labs 07/14/17 0446 INR 2.4* Lab Results Component Value Date NA 143 07/13/2017 K 4.3 07/14/2017 CL 104 07/13/2017 CO2 26 07/13/2017 BUN 25 (H) 07/13/2017 CREATININE 1.19 07/13/2017 Pending Studies and Lab Data: none Immunizations Given this Hospitalization: Immunization History Administered Date(s) Administered ??? Influenza PF, Split 03/29/2013 ??? Influenza Vaccine, Whole 06/14/2006 Smoking Status at Discharge: History Smoking Status ??? Former Smoker ??? Packs/day: 3.00 ??? Years: 5.00 ??? Types: Cigarettes ??? Quit date: 07/26/1967 Smokeless Tobacco ??? Never Used STS Data Medications: Pre-operative beta chadwick- Given Discharge beta chadwick- Given Discharge lipid therapy- Given Discharge anti-platelet therapy- Given Discharge Medications: Your Medications New Medications Dose Details acetaminophen 500 mg Tab Commonly known as: TYLENOL Take 2 tablets by mouth every 6 hours as needed for Pain. 1000 mg Quantity: 30 tablet Refills: 1 AMIOdarone 400 mg Tab Commonly known as: PACERONE Take 1 tablet by mouth daily. Start taking on: 07/15/2017 400 mg Quantity: 30 tablet Refills: 0 atorvastatin 40 mg Tab Commonly known as: LIPITOR Take 1 tablet by mouth every evening. 40 mg Quantity: 90 tablet Refills: 3 cephalexin 500 mg Cap Commonly known as: KEFLEX Take 1 capsule by mouth 4 times daily. 500 mg Quantity: 20 capsule Refills: 0 * furosemide 40 mg Tab Commonly known as: LASIX Take 1 tablet by mouth daily for 4 days. Start taking on: 07/15/2017 40 mg Quantity: 5 tablet Refills: 0 * furosemide 20 mg Tab Commonly known as: LASIX Take 1 tablet by mouth daily. Start taking on: 07/20/2017 20 mg Quantity: 30 tablet Refills: 0 meTOPROLOL tartrate 25 mg Tab Commonly known as: LOPRESSOR Take 1 tablet by mouth 2 times daily. 25 mg Quantity: 180 tablet Refills: 3 potassium chloride 10 mEq Tbsr Commonly known as: K-DUR/KLOR-CON Take 1 tablet by mouth daily. Start taking on: 07/15/2017 10 mEq Quantity: 30 tablet Refills: 0 warfarin 2.5 mg Tab Commonly known as: COUMADIN Take 1 tablet by mouth once for 1 dose. Starting tomorrow, all dosing per Dr Vicente 2.5 mg Quantity: 60 tablet Refills: 1 * Notice: This list has 2 medication(s) that are the same as other medications prescribed for you. Read the directions carefully, and ask your doctor or other care provider to review them with you. Continued medications with new dosing Dose Details ACCU-CHEK ELIF PLUS TEST STRP Strp 2-3 times daily Generic drug: blood sugar diagnostic strips What changed: - how much to take - how to take this - when to take this - additional instructions Quantity: 100 each Refills: 1 insulin lispro Inpn Commonly known as: humaLOG KwikPen Inject 15-20 Units subcutaneously 3 times daily (with meals). What changed: how much to take 15-20 Units Quantity: 10 mL Refills: 1 LANTUS SOLOSTAR 100 unit/mL (3 mL) pen Inject 30 Units subcutaneously nightly. Generic drug: insulin glargine What changed: how much to take 30 Units Quantity: 15 mL Refills: 1 lisinopril 20 mg Tab Commonly known as: PRINIVIL;ZESTRIL Take 0.5 tablets by mouth daily. What changed: how much to take 10 mg Quantity: 90 tablet Refills: 3 metFORMIN 850 mg Tab Commonly known as: GLUCOPHAGE Take 1 tablet by mouth 2 times daily (with meals). Start taking on: 07/15/2017 What changed: additional instructions 850 mg Quantity: 60 tablet Refills: 12 Continued medications, unchanged Dose Details aspirin 81 mg Tbec Take 81 mg by mouth every other day. 81 mg Refills: 0 BD INSULIN PEN NEEDLE UF MINI 31 [...] of psoriasis Quantity: 60 mL Refills: 2 levothyroxine 175 mcg Tab Commonly known as: SYNTHROID Take 1 tablet by mouth daily. 175 mcg Quantity: 90 tablet Refills: 3 Magnesium 200 mg Tab Take 500 mg by mouth daily. 500 mg Refills: 0 turmeric root extract 500 mg Cap Take 500 mg by mouth. 500 mg Refills: 0 vitamin C 500 mg Tab Take 500 mg by mouth daily. Winter months only Generic drug: ascorbic acid (vitamin C) 500 mg Refills: 0 STOPPED Medications meTOPROLOL succinate 25 mg Tablet sr Commonly known as: TOPROL-XL (if Coumadin)Anticoagulation (???Blood Thinner?? ) Management upon Discharge: 1. Reason for anticoagulation therapy: post op atrial fibrillation 2. Your warfarin (Coumadin??) dosing instruction upon discharge is: (Follow this schedule below until your first INR check after discharge (usually in 2- 4 days): ??? Day of discharge (day #1): 2.5 mg ??? Day #2: as per Dr Alatorre 3. Follow up INR is scheduled on: day following discharge 07/15/2017 4. INR Goal: 2-3 5. Expected duration of treatment: ongoing up to 3 months 6. Provider/Team responsible for ongoing outpatient anticoagulation management: ??? Provider/Team/Clinic: Dr Vicente ??? 7. If you have not received a call from your provider within 24 hrs of having your INR drawn, pleasecall your outpatient provider for further dose instructions. 8. Warfarin (Coumadin??) should be taken at the same time every day, preferably after 5:00 pm. 9. Please review your Warfarin (Coumadin??) Pack upon discharge. 10. If you will be on Warfarin (Coumadin??) indefinitely you should carry an identification card or wear a medical alert bracelet stating that you take Warfarin (Coumadin??). 11. Warfarin Education that was reviewed with you in the hospital: (please see your warfarin (Coumadin) packet for more information) ? Diet and medications can affect your INR ? Maintaining a diet with a consistent amount of vitamin K containing foods is important to keep your INR in range ? Avoid major changes in dietary habits ? Do not take or discontinue any prescription or sjzs-jkz-dmawwls medications without asking your doctor or pharmacist ? Inform all your doctors, pharmacists and other healthcare providers that you take warfarin (Coumadin??) ? Warfarin (Coumadin??) increases your risk of bleeding ? If you experience any of these signs or symptoms of bleeding or blood clot please seek immediate medical attention: - increased pain, swelling or sudden shortness of breath - severe headache - dizziness - unusual bleeding or bruising - changes in urine or bowel movement color - coughing or spitting up of blood, or nosebleeds that do not stop or occur more often The following table shows your most recent INR results and Warfarin (Coumadin??) doses. Please bringthis to your first warfarin INR check appointment after discharge. Recent Labs 07/14/17 0446 07/13/17 0426 07/12/17 0411 07/08/17 0840 07/07/17 1730 INR 2.4* 1.8* 1.2* 1.3* 1.6* Hospital Date 07/11 07/12 07/13 Coumadin Dose 5 mg 5 mg 2.5 mg Note: Patient was discharged with 2.5 mg tablets. Instructions Given to Patient at Discharge: General Instructions Diabetes and Insulin Discharge Instructions Reduce your metformin to ONE tablet twice a day. Your doctor may increase it again if your kidney function remains good. Start your metformin 07/15 (you had a higher dose of lantus today) Please drink lots of water, 6 glasses a day if you can. Instructions for Lantus Insulin (LONG ACTING) You had lantus at 9:30 AM today (07/14) To move your time back to night we will move it by 4 hours each day. Saturday 07/14 TAKE NONE we already gave it to you 07/15 take at 1:30 PM Monday 07/16 take at 5:30 PM Tuesday 07/17 Take at 8 pm 1. Inject LANTUS 30 units insulin every evening. Check blood glucose (BG) before breakfast 3. If the blood glucose before breakfast is over 150 for two days in a row, add TWO units of insulinto the next LANTUS dose. This increased dose becomes your new dose, continue to increase as needed. 4. If the blood glucose before breakfast is under 90 for two days in a row, subtract TWO units of insulin from the next LANTUS dose. This lower dose becomes your new dose, continue to decrease as needed. Instructions for Mealtime Novolog (or Humalog) Insulin This is the rapid-acting insulin, used at mealtime to prevent a high BG after you eat. Check your BGbefore each meal. 1. If your BG is 100 or higher, inject Novolog right before eating. 2. If your BG is 80 - 100, inject Novolog right after eating. 3. If your BG is lower than 80, or you have symptoms of a low BG, treat the low BG first, then eat your meal and take the Novolog after eating. For a low carb/small meal take 15 units, medium meal take 18 units for a large/high carb meal take 20 units. . Treatment of Low Blood Sugar (Hypoglycemia) If your BG is lower than 80, you are likely to feel shaky, sweaty and lightheaded. This is a signal that your body needs more sugar. Quickly eat or drink a small serving of something sweet, such as: 4 ounces fruit juice or regular (not diet) soda 6 lifesavers small box of raisins 4 glucose tablets (~15 gm of glucose) If your BG is very low <50, you can double the amount above or take 30 gm of glucose gel/tablets. Sit and rest and you should feel better within a few minutes. Once you are feeling better, try to determine why your BG was so low. Common causes of hypoglycemia include skipping a meal, lots of exercise, too much insulin or any combination of these things. Understanding the cause my help you to avoidanother low BG in the future. Call your doctor for blood sugars less than 80 or greater than 300 twice in one day to have your insulin doses adjusted. [facility] [place] Endocrine clinic office Discharge Instructions: Call your doctor if: You have a fever of greater than 101 degrees, shaking chills, if you develop redness or drainage from your incision sites, or if you have questions. Please call your surgeon's office if you have any discharge or drainage from your chest incision. Your surgeon, Dr. Yuan Webber and/or the Cardiac Surgery Physician Epidemiology Internship Team may be reached at . Weight: Weigh yourself daily. Please call the office if you notice increasing weight, increasing fluid retention (edema), and/or SOB. Sternal (breast bone) precautions: No lifting greater than 7-10 pounds; no pushing or pulling with upper extremities; no excessive chest stretching for the first 4 weeks. Further instructions will be given to you at your follow-up appointment. Activity level: Walk three times a day. You should continue to increase your walks by 1-2 minutes each day. It is expected that you will be walking 20-30 minutes twice a day within 3-4 weeks after discharge to home. Rest between activities and after meals. Use common sense, don't exhaust yourself. Biking: You may use a stationary bicycle whenever you are comfortable enough to permit this. Tightenthe resistance slightly. Increase the amount of time on the bicycle as you would do for your walks, a minute or two each day. No biking outside until after your return appointment with Dr. Yuan Webber. You may use a [place] or treadmill but avoid any pulling motion with the arms. Home activities: You may do light housework, e.g. dusting, setting the table, washing dishes, preparing a meal. Light carpentry and gardening are allowed. Avoid trying to open tight jars and stuck windows. No vacuuming, mopping, raking, shoveling, digging or hoeing until after your return visit with the surgeon. Sexual activity: You may engage in sexual activity when you feel ready. Use a position that protectsyour sternum (breastbone). Do not have your partner lie on your chest. Stairs: There are no restrictions on stair climbing. Use common sense. Don't exhaust yourself. Activities outside the home: After the first week home you may go out to dinner, visit friends, go to a movie, go to christian, etc. Heavy activities: No hunting, skiing, jogging, snow shoveling, snowmobiling, lawn mowing, swimming, golf or tennis until after your return appointment with the surgeon. Do not ride motorcycles, [employer] tractors or horses. Avoid the use of a rifle with kickback against the shoulder for six months. Sleep: Try to establish normal sleep patterns. Long naps during the day may make it hard for you to sleep at night. Use the pain medication at bedtime for the first week at home. If you have nightmares, contact us. Some medications make this worse and these can be changed. Smoking: It is very important that you not smoke after surgery. Smoking cessation education was provided as appropriate. If you need further assistance with this please call and you will be referred toa smoking cessation specialist. Medications: Take only those medications listed on your discharge information. Keep your pain under control so you can be active, do your coughing and breathing exercises and sleep. Contact us if the pain medication isn't working for you. Do not take any herbal preparations until after you return to see the surgeon. Special Physician Instructions: DO NOT USE ANY IBUPROFEN (ADVIL, MOTRIN, ETC) OR OTHER NSAIDS (NONSTEROIDAL ANTI-INFLAMMATORY DRUGS) FOR A TOTAL OF 10 DAYS AFTER SURGERY. PLEASE CONTACT THE CARDIOTHORACIC SURGERY OFFICE IF YOU HAVE QUESTIONS ABOUT WHICH DRUGS YOU SHOULD NOT USE. . Diet: You should follow a regular diet until your appetite returns to normal. At that point in time you should resume a low fat, low cholesterol, [place] [employer] Diet/Diabetic diet. Driving: No driving until cleared by your surgeon. Avoid long trips if possible. If you must go on along trip, stop the car and walk every hour. Shower/Bath: You may shower daily. No baths, soaking, or swimming until cleared by your surgeon. Wound care: Wash your incisions daily with antibacterial soap and rinse well, pat dry. Assess for any signs of infection such as increased redness, pain, warmth or drainage. Please call your surgeon's office if you have any discharge or drainage from your chest incision. If there is a lot of swelling,apply higinio wraps during the day and remove at bedtime. Elevate your legs when you are sitting. REMOVE CHEST TUBE SUTURES ON OR AFTER 07/17/2017 Home oxygen therapy: N/A Follow up appointments: Patient to follow-up with PCP, Lovely Vicente MD, in 1-2 weeks. An appointment has been made for you on 07/22/2017, , @ 1:20p Patient to follow-up with New Car Sales Manager/heart failure team in one week. Appointment will be made for you. You may call [phone] Patient to follow-up with Cardiac Surgery, Dr. Yuan Webber, in ~ 4 weeks with CXR, EKG. Cardiac Rehabilitation: Gregory Hoang was seen today regarding participation in the outpatient Phase [address] [facility]. The patient agrees to a referral to this program. The referral will be sent at discharge and the patient should be contacted by the Program within 1- 2 weeks from discharge. ?? Future Appointments and Orders Future Appointments Provider Department Dept Phone 09/07/2017 3:00 PM LAB, THREE L Lab 3L [facility] [phone] 09/07/2017 4:00 PM Luz Prescott MD Endocrinology at [place] [phone] Future Orders Complete By Expires EKG 12 Lead [EKG1 Custom] 08/14/2017 02/13/2018 Process Instructions: Scheduling Instructions: Questions: Which location will this be performed?: [place] Is a rhythm strip needed?: No If EKG Reason is Pre-op Evaluation, indicate diagnosis for surgery.: XR Chest PA & Lateral (Generic) [[id number] Custom] 08/14/2017 02/13/2018 Process Instructions: Scheduling Instructions: Questions: Where will study be performed?: [facility] Portable exam?: Reason for exam and clinical history: CABG x 3 Other pertinent information: Stat read required?: Date of injury if applicable: Requested Time: Referral to Cardiac Rehab [DDF724 Custom] As directed Process Instructions: If no progress note charted, please enter Clinical details in comments. Scheduling Instructions: Questions: My question or request is: s/p CABG. Cardiac rehab at [facility] Referral to Home Health - at DISCHARGE [ROC2237 CPT(R)] As directed Process Instructions: Scheduling Instructions: Comments: DOCUMENTATION FOR VNA SERVICES (INCLUDING THOSE PATIENTS WITH MEDICARE COVERAGE REQUIRING HOME VNA SERVICES AND/OR HOSPICE SERVICES) PATIENT'S LOCATION: Gregory Hoang [address] [place] [address] [place] [phone] (home) Telephone Information: Lab Scientist's Name: self In discussion with the attending physician, it is certified that this patient is under their care and that they, or a Nurse Practitioner, or Physician Epidemiology Internship who is working directly with them, had aface to face encounter that meets the physician face to face encounter requirements with this patient on 07/14/2017 The encounter with the patient was in whole, or in part, for the following medical condition, which is the primary reason for home health care services: 07/14/2017 In discussion with the provider, it is certified that, based on their findings, the following services are medically necessary for home health services. To provide the following care/treatments with the clinical findings supporting the need for servicesas follows: HOME HEALTH AGENCY: [facility] ([facility] [place] [facility]-is in [place], [place]) PHONE: [phone] FAX: [phone] RN orders: Cardiopulmonary assessment, incisional assessment, assess vital signs, assessment of rehab progress, medication management and effectiveness, home safety evaluation. Please draw INR if indicated and send result to:Dr Vicente [phone] PT ORDERS: Continue rehab for endurance, gait stability and strength with mobility and transfers. Home safety evaluation. Home exercise program if appropriate. Start of Care Date:24-48 hours after discharge SPECIAL INSTRUCTIONS: For any follow up questions, needs, or issues please call the Cardiac Surgery Office at [phone] FOR MEDICARE ONLY: (please delete this section if not Medicare) In discussion with the attending physician, it is certified that the clinical findings support that this patient is homebound i.e. absences from home require considerable and taxing effort due to: Restricted mobility and poor activity tolerance due to recent cardiac surgery. Patient requires assistance of another person to leave the home. Home Health agencies which cover the area of patient's residence have been reviewed, either verballyor in writing, and patient/family have chosen the agency as noted. Questions: Agency name and contact information: [facility] Patient location post discharge: home What services are requested: Registered Nurse Physical Therapy Start date: Responsible MD post discharge contact info: PCP Arrangements for VNA/home care: As above. VN RN OR PCP TO PLEASE REMOVE CHEST TUBE SUTURES ON OR AFTER 07/17/2017 Signed: Martha Teague APRN [facility] [phone] FAX [phone] Date: 07/14/2017 CC: MD Ivania Cr Betsy, PA [address] [place] [phone] documented in this encounter Discharge Instructions Discharge InstructionsDeandre Kathie L, STACIE - 07/14/2017 11:24 AM EST Diabetes and Insulin Discharge Instructions Reduce your metformin to ONE tablet twice a day. Your doctor may increase it again if your kidney function remains good. Start your metformin 07/15 (you had a higher dose of lantus today) Please drink lots of water, 6 glasses a day if you can. Instructions for Lantus Insulin (LONG ACTING) You had lantus at 9:30 AM today (07/14) To move your time back to night we will move it by 4 hours each day. Saturday 07/14 TAKE NONE we already gave it to you 07/15 take at 1:30 PM Monday 07/16 take at 5:30 PM Tuesday 07/17 Take at 8 pm 1. Inject LANTUS 30 units insulin every evening. Check blood glucose (BG) before breakfast 3. If the blood glucose before breakfast is over 150 for two days in a row, add TWO units of insulinto the next LANTUS dose. This increased dose becomes your new dose, continue to increase as needed. 4. If the blood glucose before breakfast is under 90 for two days in a row, subtract TWO units of insulin from the next LANTUS dose. This lower dose becomes your new dose, continue to decrease as needed. Instructions for Mealtime Novolog (or Humalog) Insulin This is the rapid-acting insulin, used at mealtime to prevent a high BG after you eat. Check your BGbefore each meal. 1. If your BG is 100 or higher, inject Novolog right before eating. 2. If your BG is 80 - 100, inject Novolog right after eating. 3. If your BG is lower than 80, or you have symptoms of a low BG, treat the low BG first, then eat your meal and take the Novolog after eating. For a low carb/small meal take 15 units, medium meal take 18 units for a large/high carb meal take 20 units. . Treatment of Low Blood Sugar (Hypoglycemia) If your BG is lower than 80, you are likely to feel shaky, sweaty and lightheaded. This is a signal that your body needs more sugar. Quickly eat or drink a small serving of something sweet, such as: 4 ounces fruit juice or regular (not diet) soda 6 lifesavers small box of raisins 4 glucose tablets (~15 gm of glucose) If your BG is very low <50, you can double the amount above or take 30 gm of glucose gel/tablets. Sit and rest and you should feel better within a few minutes. Once you are feeling better, try to determine why your BG was so low. Common causes of hypoglycemia include skipping a meal, lots of exercise, too much insulin or any combination of these things. Understanding the cause my help you to avoidanother low BG in the future. Call your doctor for blood sugars less than 80 or greater than 300 twice in one day to have your insulin doses adjusted. [facility] Endocrine clinic office Patient InstructionsStMartha mcdonald APRN - 07/14/2017 11:36 AM EST ?? (if Coumadin)Anticoagulation (???Blood Thinner?? ) Management upon Discharge: ?? 1. Reason for anticoagulation therapy: post op atrial fibrillation ?? 2. Your warfarin (Coumadin??) dosing instruction upon discharge is: (Follow this schedule below until your first INR check after discharge (usually in 2- 4 days): ?? Day of discharge (day #1): 2.5 mg ?? Day #2: as per Dr Alatorre ?? 3. Follow up INR is scheduled on: day following discharge 07/15/2017 ?? 4. INR Goal: 2-3 ?? 5. Expected duration of treatment: ongoing up to 3 months ?? 6. Provider/Team responsible for ongoing outpatient anticoagulation management: ?? Provider/Team/Clinic: Dr Vicente ? 7. If you have not received a call from your provider within 24 hrs of having your INR drawn, pleasecall your outpatient provider for further dose instructions. ?? 8. Warfarin (Coumadin??) should be taken at the same time every day, preferably after 5:00 pm. ?? 9. Please review your Warfarin (Coumadin??) Pack upon discharge. ?? 10. If you will be on Warfarin (Coumadin??) indefinitely you should carry an identification card or wear a medical alert bracelet stating that you take Warfarin (Coumadin??). ?? 11. Warfarin Education that was reviewed with you in the hospital: (please see your warfarin (Coumadin) packet for more information) ?? Diet and medications can affect your INR ?? Maintaining a diet with a consistent amount of vitamin K containing foods is important to keep your INR in range ?? Avoid major changes in dietary habits ?? Do not take or discontinue any prescription or xpxf-efm-ehhmqqw medications without asking your doctor or pharmacist ?? Inform all your doctors, pharmacists and other healthcare providers that you take warfarin (Coumadin??) ?? Warfarin (Coumadin??) increases your risk of bleeding ?? If you experience any of these signs or symptoms of bleeding or blood clot please seek immediate medical attention: ?? increased pain, swelling or sudden shortness of breath ?? severe headache ?? dizziness ?? unusual bleeding or bruising ?? changes in urine or bowel movement color ?? coughing or spitting up of blood, or nosebleeds that do not stop or occur more often ?? The following table shows your most recent INR results and Warfarin (Coumadin??) doses. Please bringthis to your first warfarin INR check appointment after discharge. ?? Recent Labs ? 07/14/17 0446 07/13/17 0426 07/12/17 0411 07/08/17 0840 07/07/17 1730 INR 2.4* 1.8* 1.2* 1.3* 1.6* ? Hospital Date 07/11 07/12 07/13 Coumadin Dose 5 mg 5 mg 2.5 mg ?? Note: Patient was discharged with 2.5 mg tablets. ?? Instructions Given to Patient at Discharge: ? General Instructions ?? Diabetes and Insulin Discharge Instructions ?? Reduce your metformin to ONE tablet twice a day. Your doctor may increase it again if your kidney function remains good. Start your metformin 07/15 (you had a higher dose of lantus today) ?? Please drink lots of water, 6 glasses a day if you can. ?? Instructions for Lantus Insulin (LONG ACTING) ?? You had lantus at 9:30 AM today (07/14) To move your time back to night we will move it by 4 hours each day. ?? Saturday 07/14 TAKE NONE we already gave it to you ?? 07/15 take at 1:30 PM ?? Monday 07/16 take at 5:30 PM ?? Tuesday 07/17 Take at 8 pm ?? 1. Inject LANTUS 30 units insulin every evening. Check blood glucose (BG) before breakfast 3. If the blood glucose before breakfast is over 150 for two days in a row, add TWO units of insulinto the next LANTUS dose. This increased dose becomes your new dose, continue to increase as needed. 4. If the blood glucose before breakfast is under 90 for two days in a row, subtract TWO units of insulin from the next LANTUS dose. This lower dose becomes your new dose, continue to decrease as needed. ? Instructions for Mealtime Novolog (or Humalog) Insulin ?? This is the rapid-acting insulin, used at mealtime to prevent a high BG after you eat. Check your BGbefore each meal. ?? 1. If your BG is 100 or higher, inject Novolog right before eating. 2. If your BG is 80 - 100, inject Novolog right after eating. 3. If your BG is lower than 80, or you have symptoms of a low BG, treat the low BG first, then eat your meal and take the Novolog after eating. ? For a low carb/small meal take 15 units, medium meal take 18 units for a large/high carb meal take 20 units. ? . Treatment of Low Blood Sugar (Hypoglycemia) If your BG is lower than 80, you are likely to feel shaky, sweaty and lightheaded. This is a signal that your body needs more sugar. Quickly eat or drink a small serving of something sweet, such as: 4 ounces fruit juice or regular (not diet) soda 6 [employer] small box of raisins 4 glucose tablets (~15 gm of glucose) If your BG is very low <50, you can double the amount above or take 30 gm of glucose gel/tablets. Sit and rest and you should feel better within a few minutes. Once you are feeling better, try to determine why your BG was so low. Common causes of hypoglycemia include skipping a meal, lots of exercise, too much insulin or any combination of these things. Understanding the cause my help you to avoidanother low BG in the future. Call your doctor for blood sugars less than 80 or greater than 300 twice in one day to have your insulin doses adjusted. [facility] Endocrine clinic office ? Discharge Instructions: ?? Call your doctor if: You have a fever of greater than 101 degrees, shaking chills, if you develop redness or drainage from your incision sites, or if you have questions. Please call your surgeon's office if you have any discharge or drainage from your chest incision. Your surgeon, Dr. Yuan Webber and/or the Cardiac Surgery Physician Epidemiology Internship Team may be reached at . ?? Weight: Weigh yourself daily. Please call the office if you notice increasing weight, increasing fluid retention (edema), and/or SOB. ?? Sternal (breast bone) precautions: No lifting greater than 7-10 pounds; no pushing or pulling with upper extremities; no excessive chest stretching for the first 4 weeks. Further instructions will be given to you at your follow-up appointment. ?? Activity level: Walk three times a day. You should continue to increase your walks by 1-2 minutes each day. It is expected that you will be walking 20-30 minutes twice a day within 3-4 weeks after discharge to home. Rest between activities and after meals. Use common sense, don't exhaust yourself. ?? Biking: You may use a stationary bicycle whenever you are comfortable enough to permit this. Tightenthe resistance slightly. Increase the amount of time on the bicycle as you would do for your walks, a minute or two each day. No biking outside until after your return appointment with Dr. Yuan Webber. You may use a [place] [employer] or treadmill but avoid any pulling motion with the arms. ?? Home activities: You may do light housework, e.g. dusting, setting the table, washing dishes, preparing a meal. Light carpentry and gardening are allowed. Avoid trying to open tight jars and stuck windows. No vacuuming, mopping, raking, shoveling, digging or hoeing until after your return visit with the surgeon. ?? Sexual activity: You may engage in sexual activity when you feel ready. Use a position that protectsyour sternum (breastbone). Do not have your partner lie on your chest. ?? Stairs: There are no restrictions on stair climbing. Use common sense. Don't exhaust yourself. ?? Activities outside the home: After the first week home you may go out to dinner, visit friends, go to a movie, go to christian, etc. ?? Heavy activities: No hunting, skiing, jogging, snow shoveling, snowmobiling, lawn mowing, swimming, golf or tennis until after your return appointment with the surgeon. Do not ride motorcycles, [employer] tractors or horses. Avoid the use of a rifle with kickback against the shoulder for six months. ?? Sleep: Try to establish normal sleep patterns. Long naps during the day may make it hard for you to sleep at night. Use the pain medication at bedtime for the first week at home. If you have nightmares, contact us. Some medications make this worse and these can be changed. ?? Smoking: It is very important that you not smoke after surgery. Smoking cessation education was provided as appropriate. If you need further assistance with this please call and you will be referred toa smoking cessation specialist. ?? Medications: Take only those medications listed on your discharge information. Keep your pain under control so you can be active, do your coughing and breathing exercises and sleep. Contact us if the pain medication isn't working for you. Do not take any herbal preparations until after you return to see the surgeon. ?? Special Physician Instructions: DO NOT USE ANY IBUPROFEN (ADVIL, MOTRIN, ETC) OR OTHER NSAIDS (NONSTEROIDAL ANTI-INFLAMMATORY DRUGS) FOR A TOTAL OF 10 DAYS AFTER SURGERY. PLEASE CONTACT THE CARDIOTHORACIC SURGERY OFFICE IF YOU HAVE QUESTIONS ABOUT WHICH DRUGS YOU SHOULD NOT USE. . ? Diet: You should follow a regular diet until your appetite returns to normal. At that point in time you should resume a low fat, low cholesterol, [place] [employer] Diet/Diabetic diet. ?? Driving: No driving until cleared by your surgeon. Avoid long trips if possible. If you must go on along trip, stop the car and walk every hour. ?? Shower/Bath: You may shower daily. No baths, soaking, or swimming until cleared by your surgeon. ?? Wound care: Wash your incisions daily with antibacterial soap and rinse well, pat dry. Assess for any signs of infection such as increased redness, pain, warmth or drainage. Please call your surgeon's office if you have any discharge or drainage from your chest incision. If there is a lot of swelling,apply higinio wraps during the day and remove at bedtime. Elevate your legs when you are sitting. ?? REMOVE CHEST TUBE SUTURES ON OR AFTER 07/17/2017 ?? Home oxygen therapy: N/A ?? Follow up appointments: ? Patient to follow-up with PCP, Lovely Vicente MD, in 1-2 weeks. An appointment has been made for you on 07/22/2017, , @ 1:20p ?? Patient to follow-up with New Car Sales Manager/heart failure team in one week. An appointment has been made for you, you can call [phone] ?? Patient to follow-up with Cardiac Surgery, Dr. Yuan Webber, in ~ 4 weeks with CXR, EKG. ? Cardiac Rehabilitation: Gregory Hoang??was seen today regarding participation in the outpatient Phase [address] [facility]. ?? The patient agrees to a referral to this program.? The referral will be sent at discharge and the patient should be contacted by the Program within 1- 2 weeks from discharge. ? Future Appointments and Orders Future Appointments Provider Department Dept Phone ?? 09/07/2017 3:00 PM LAB, THREE L Lab 3L [facility] [phone] ?? 09/07/2017 4:00 PM Luz Prescott MD Endocrinology at [place] [phone] Future Orders Complete By Expires ?? EKG 12 Lead [EKG1 Custom] 08/14/2017 02/13/2018 ?? Process Instructions: ? Scheduling Instructions: ? Questions: ? Which location will this be performed?: [place] ?? Is a rhythm strip needed?: No ?? If EKG Reason is Pre-op Evaluation, indicate diagnosis for surgery.: ?? XR Chest PA & Lateral (Generic) [50012 [id number] Custom] 08/14/2017 02/13/2018 ?? Process Instructions: ? Scheduling Instructions: ? Questions: ? Where will study be performed?: [facility] ?? Portable exam?: ?? Reason for exam and clinical history: CABG x 3 ?? Other pertinent information: ?? Stat read required?: ?? Date of injury if applicable: ?? Requested Time: ?? Referral to Cardiac Rehab [[id number] Custom] As directed ? Process Instructions: ?? If no progress note charted, please enter Clinical details in comments. ?? Scheduling Instructions: ? Questions: ? My question or request is: s/p CABG. Cardiac rehab at [facility] ? Arrangements for VNA/home care: As above. ? VN RN OR PCP TO PLEASE REMOVE CHEST TUBE SUTURES ON OR AFTER 07/17/2017 documented in this encounter Medications at Time of Discharge Medication Sig Dispensed Refills Start Date End Date metFORMIN (GLUCOPHAGE) Take 1 tablet by mouth 60 tablet 12 1 09/15/2016 850 mg Tablet 2 times daily (with meals). ACCU-CHEK ELIF PLUS 2-3 times daily 100 each 1 07/14/2017 TEST STRP Strip BD INSULIN PEN NEEDLE 1 each by Other route 0 UF MINI 31 gauge x 4 times daily. 10/08 Needle clobetasol (TEMOVATE) Apply 1 Application 1 06/2009/06/2019 0.05 % Solution topically 2 times daily. warfarin (COUMADIN) Take 1 tablet by mouth 60 tablet 1 06/2607/14/2017 2.5 mg Tablet once for 1 dose. Starting tomorrow, all dosing per Dr Vicente acetaminophen Take 2 tablets by 30 tablet [...] 30 tablet 0 08/04/2017 mg Tablet daily. furosemide (LASIX) 40 Take 1 tablet by mouth 5 tablet 0 07/20/2017 mg Tablet daily for 4 days. lisinopril Take 0.5 tablets by 90 tablet 3 07/14/201708/04 (PRINIVIL;ZESTRIL) 20 mouth daily. mg Tablet meTOPROLOL tartrate Take 1 tablet by mouth 180 tablet 3 06/2608/26/2017 (LOPRESSOR) 25 mg 2 times daily. Tablet potassium chloride Take 1 tablet by mouth 30 tablet 0 07/1507/27/2017 (K-DUR/KLOR-CON) 10 daily. mEq Tablet Sustained Release cephalexin (KEFLEX) Take 1 capsule by 20 capsule 0 7 07/20/2017 500 mg Capsule mouth 4 times daily. insulin lispro Inject 15-20 Units 10 mL 1 07/14/2017 (HUMALOG KWIKPEN) subcutaneously 3 times Insulin Pen daily (with meals). LANTUS SOLOSTAR pen Inject 30 Units 15 mL 1 07/14/2017 07/20/2017 subcutaneously nightly. levothyroxine Take 1 tablet by mouth 90 [...] documented as of this encounter Progress Notes Myrna Young RN - 07/14/2017 2:39 PM EST See flowsheet for VS. Pt and educated about medication, discharge and post op teaching, diet, daily weights, set up with VNA. Pt rested with no complaints. Scant amount of sternal drainage on dressing. STACIE Teague notified and cleaned and redressed. Pt taken to door in wheel chair. Zulma Andres RN - 07/14/2017 2:34 PM EST The patient/sales solutions representative has been provided a list of Home Health Agencies/DME vendors which serve their preferred geographic area. A letter describing our affiliations was reviewed with them and theywere educated about their right to choose where referrals are placed. Patient requests referral to [facility] PHONE: [phone] FAX: [phone] Expected date of discharge: 07/14 Referral routed to the French Teacher for matching with agency/vendor and to provide any required information. Kathie Carrera APRN - 07/14/2017 11:13 AM EST Images from the original note were not included. Follow Up Diabetes Consult Patient Interview Gregory will be going home today. Objective Temp: [37.1 ??C (98.8 ??F)-37.3 ??C (99.1 ??F)] Heart Rate: [75-92] Resp: [16-18] BP: (123-153)/(57-94) SpO2: [95 %-97 %] Heart Rate from SPO2: -- Current Regimen Lantus:50 units daily Lispro 1:8 insulin to carbohydrate ratio Lispro for correction q 4 hours using CF20 sliding scale Recent Glucose Levels Recent Labs 07/14/17 0752 07/14/17 0434 07/13/17 2333 07/13/17 2125 07/13/17 1655 07/13/17 1116 07/13/17 0807 07/13/17 0352 07/13/17 0021 07/12/17 2022 07/12/17 1602 07/12/17 1128 POCGLU 126 115 132 121 79 163 96 93 80 119 114 164 Results for GREGORY HOANG ( ) as of 07/14/2017 11:09 Ref. Range 07/05/2017 20:20 07/06/2017 08:10 07/07/2017 05:15 07/08/2017 04:00 07/09/2017 02:30 07/10/2017 04:28 07/12/2017 04:11 07/13/2017 04:26 Estimated GFR Latest Ref Range: >=60 >60 >60 >60 44 (L) 53 (L) 60 58 (L) 60 ASSESSMENT Gregory Hoang??is a 72 y.o.?male??with PMH significant for T2DM, CAD, HTN, CHF NYHA Class III-IV, MARIA VICTORIA on CPAP, BPH, thyroid carcinoma s/p thyroidectomy ??who was admitted on 07/05/2017??with late STEMI and is currently POD #7??s/p CABG X3. We reduced his metformin to 1 tablet twice daily due to transient RADHA His PCP may resume the additional tablet at night if GFR remains greater than 60. Since we are resuming his metformin and he wants to resume his previous humalog doses will decrease his lantus to 30 units and provide guidelines for adjusting. I recommend he call his PCP when he gets to rehab to update him and schedule follow up. PLAN Diabetes and Insulin Discharge Instructions Reduce your metformin to ONE tablet twice a day. Your doctor may increase it again if your kidney function remains good. Start your metformin 07/15 (your had a higher dose of lantus today) Please drink lots of water, 6 glasses a day if you can. Instructions for Lantus Insulin (LONG ACTING) You had lantus at 9:30 AM today (07/14) To move your time back to night we will move it by 4 hours each day. Saturday 07/14 TAKE NONE we already gave it to you 07/15 take at 1:30 PM Monday 07/16 take at 5:30 PM Tuesday 07/17 Take at 8 pm 1. Inject LANTUS 30 units insulin every evening. Check blood glucose (BG) before breakfast 3. If the blood glucose before breakfast is over 150 for two days in a row, add TWO units of insulinto the next LANTUS dose. This increased dose becomes your new dose, continue to increase as needed. 4. If the blood glucose before breakfast is under 90 for two days in a row, subtract TWO units of insulin from the next LANTUS dose. This lower dose becomes your new dose, continue to decrease as needed. Instructions for Mealtime Novolog (or Humalog) Insulin This is the rapid-acting insulin, used at mealtime to prevent a high BG after you eat. Check your BGbefore each meal. 1. If your BG is 100 or higher, inject Novolog right before eating. 2. If your BG is 80 - 100, inject Novolog right after eating. 3. If your BG is lower than 80, or you have symptoms of a low BG, treat the low BG first, then eat your meal and take the Novolog after eating. For a low carb/small meal take 15 units, medium meal take 18 units for a large/high carb meal take 20 units. . Treatment of Low Blood Sugar (Hypoglycemia) If your BG is lower than 80, you are likely to feel shaky, sweaty and lightheaded. This is a signal that your body needs more sugar. Quickly eat or drink a small serving of something sweet, such as: 4 ounces fruit juice or regular (not diet) soda 6 lifesavers small box of raisins 4 glucose tablets (~15 gm of glucose) If your BG is very low <50, you can double the amount above or take 30 gm of glucose gel/tablets. Sit and rest and you should feel better within a few minutes. Once you are feeling better, try to determine why your BG was so low. Common causes of hypoglycemia include skipping a meal, lots of exercise, too much insulin or any combination of these things. Understanding the cause my help you to avoidanother low BG in the future. Call your doctor for blood sugars less than 80 or greater than 300 twice in one day to have your insulin doses adjusted. [facility] Endocrine clinic office Kathie Carrera APRN [facility] Endocrinology Diabetes Management Pager [phone] minutes of this 35 minute visit was spent with the patient in counseling on diabetes and treatment plan, reviewing all glucose and insulin data as well as relevant laboratory results with the patient, and coordination of care on the inpatient unit including nursing and primary team. Zulma Andres, RN - 07/14/2017 10:30 AM EST The patient/sales solutions representative has been provided a list of Home Health Agencies/DME vendors which serve their preferred geographic area. A letter describing our affiliations was reviewed with them and theywere educated about their right to choose where referrals are placed. Patient requests referral to : Yasmani Munguia ([facility] [place] [facility]-is in [place], [place]) PHONE: [phone] FAX: [phone]. Expected date of discharge: 07/14/17 Referral routed to the French Teacher for matching with agency/vendor and to provide any required information. Katerin Miller RN - 07/13/2017 2:10 PM EST Images from the original note were not included. Follow Up Diabetes Consult Patient Interview/24 elsi events Sitting up in chair, reports feeling good, has walked once today. Discussed his part-time job and DM management at home. Reviewed his glucose accord. Episode of FSBG of 80 near [place], patient states he was not symptomatic but was given juice. No other concerns. Objective Temp: [36.4 ??C (97.5 ??F)-37.3 ??C (99.1 ??F)] Heart Rate: [70-86] Resp: [18-22] BP: (114-148)/(65-82) SpO2: [96 %-98 %] Heart Rate from SPO2: -- Current Regimen Lantus:65 units daily Lispro 1:5 insulin to carbohydrate ratio Lispro for correction q 4 hours using custom sliding scale ?? SSI ??q4hrly BS >140 q4h?? CORRECTION BOLUS to start when insulin drip discontinued ? Custom scale ? BG 140 - 160 ??Give 1 unit ? BG 161 - 180 ??Give 2 units ? BG 181 - 200 ??Give 4 units ? BG 201 - 220 ??Give 6 units ? BG 221 - 240 ??Give 9 units ? BG greater than 240, give 12 units and recheck BG in 2 hours. If BG remains greater than 240, [id number] units (no more than three times) &??call for new basal insulin orders. ??If less than 240 after two hours, give no insulin and resume prior schedule. ? Recent Glucose Levels Recent Labs 07/13/17 1116 07/13/17 0807 07/13/17 0352 07/13/17 0021 07/12/17 2022 07/12/17 1602 07/12/17 1128 07/12/17 0734 07/12/17 0410 07/11/17 2357 07/11/17 2032 07/11/17 1605 POCGLU 163 96 93 80 119 114 164 109 90 98 146 223* ASSESSMENT Gregory Hoang??is a 72 y.o.?male??with PMH significant for T2DM, CAD, HTN, CHF NYHA Class III-IV, MARIA VICTORIA on CPAP, BPH, thyroid carcinoma s/p thyroidectomy ??who was admitted on 07/05/2017??with late STEMI and is currently POD #6 s/p CABG X3. FSBG 80 at [place], reports no symptoms but did drink some juice provided to him. Reviewed his home regimen again and current dosing. Concerned that basal insulin is nearly 3/4 of TDD. With T2DM dosing is usually near 50% basal and %0% bolus insulin. Will decrease his glargine to 50units and liberalize his I:C ratio to 1:8 for meals. Reviewed need to check 3-4X/day once home with probably insulin adjustments needed as he recovers. Will ask JENSEN Callahan to see prior to discharge. PLAN Lantus:50 units daily Lispro 1:8 insulin to carbohydrate ratio Lispro for correction q 4 hours using CF20 sliding scale Will continue to follow Katerin Azul APRN [facility] Endocrinology Diabetes Management Pager [phone] minutes of this 25 minute visit was spent with the patient in counseling on diabetes and treatment plan, reviewing all glucose and insulin data as well as relevant laboratory results with the patient, and coordination of care on the inpatient unit including nursing and primary team. Portillo Pope RN - 07/13/2017 8:32 AM EST Images from the original note were not included. Infiltration/Extravasation Scale Instructions: Strikeout non-applicable grades, highlight the grade which applies to this patient by BOLD lettering and COLOR RED 2. Skin blanched Edema 1 to 6 inches (2.5 to 15 cm) in any direction Or 6 -25% of limb affected Cool to touch With pain 4. Infiltration harm % for this extremity 10% Based on measurement calculation ( greatest measurement X divided by length of extremity multiplied by 100=%) Specific details of infiltration/extravasation Amiodarone infiltration. Hyaluronidase, elevation andwarm compresses applied. Medication infiltrated Amiodarone Infiltration of any amount of irritant, xxx_vesicant Include:Right or left extremity? right Anterior (volar aspect) or posterior (dorsal aspect) anterior forearm Measurement in cm of length and width of affected area---Affected extremity 8 cm X 7 cm Measurement of Circumference in cm of Infiltrated area of affected extremity 27 cm Measurement of Circumference in cm of Unaffected extremity 27 cm (at same location as affected extremity) Pulses present on affected extremity Yes Medicated treatment given per policy/ order Hyaluronidase Plan for continued monitoring of infiltration/extravasation Discussed plan of care with EXHIBITION CARVER and RN. Elevate exrtemity and apply intermittent Warm compresses. Name of MD contacted Dr. Shaw Brown 07/13/2017 @ 0607 Name of RN contacted Ale Rangel RN Name of Pharmacist if consulted NA Name of Plastics MD ( if consulted) NA (Mandatory photo for infiltrations/ extravasations scoring a stage 2 or greater, but recommended forstage 1)( include measuring tape and identifier in the photo) BENCH BORING MACHINE OPERATOR CARING FOR THIS PATIENT WILL CONTINUE TO MONITOR AND WILL ASSUME CARE, VASCULAR ACCESS WILL NOT FOLLOW THIS EVENT AT THE SIGNING OF THIS NOTE. Portillo Jones RN - 07/13/2017 8:25 AM EST Images from the original note were not included. Infiltration/Extravasation Scale Instructions: Strikeout non-applicable grades, highlight the grade which applies to this patient by BOLD lettering and COLOR RED 2. Skin blanched Edema 1 to 6 inches (2.5 to 15 cm) in any direction Or 6 -25% of limb affected Cool to touch With pain 4 Infiltration harm % for this extremity 17% Based on measurement calculation ( greatest measurement X divided by length of extremity multiplied by 100=%) Specific details of infiltration/extravasation Amiodarone infiltrate. Hyaluronidase injectionss given, elevation and war compress. Medication infiltrated Amiodarone Infiltration of any amount of irritant, xx__vesicant Include:Right or left extremity left Anterior (volar aspect) or posterior (dorsal aspect) Bicep region Measurement in cm of length and width of affected area---Affected extremity 14 cm X 14 cm Measurement of Circumference in cm of Infiltrated area of affected extremity 29 cm Measurement of Circumference in cm of Unaffected extremity 28cm (at same location as affected extremity) Pulses present on affected extremity Yes Medicated treatment given per policy/ order Hyaluronidase Plan for continued monitoring of infiltration/extravasation. Discussed plan of care with RN. Elevation and intermittent warm compresses Name of MD contacted STACIE Hernandez 07/13/2017 @ 0800 Name of RN contacted Ale Rangel RN Name of Pharmacist if consulted NA Name of Plastics MD ( if consulted) NA (Mandatory photo for infiltrations/ extravasations scoring a stage 2 or greater, but recommended forstage 1)( include measuring tape and identifier in the photo) BENCH BORING MACHINE OPERATOR CARING FOR THIS PATIENT WILL CONTINUE TO MONITOR AND WILL ASSUME CARE, VASCULAR ACCESS WILL NOT FOLLOW THIS EVENT AT THE SIGNING OF THIS NOTE. Portillo Pope RN - 07/13/2017 8:16 AM EST Images from the original note were not included. 0800 Amiodarone infiltration to LUE treated with hyaluronidase injections, elevation and warm compresses. STACIE Hernandez notified. Pt informed and advised of all nursing actions prior to implementation, all of Mr. Hoang's questions and concerns with regard to both infiltrates addressed by this health technical writer.All of Mr. Hoang's responses were entirely appropriate. Images of infiltrates attached here. Martha Sharp APRN - 07/13/2017 8:01 AM EST Cardiac Surgery Progress Note: ID: [id number] 72 year old male POD#6 s/p CABGx3 with pre-operative placed IABP for severe LV dysfunction. Pmhx pertinent for HTN, CHF, CAD, nSTEMI, IDDM, MARIA VICTORIA, BPH, thyroid carcinoma s/p thyroidectomy melanoma EF- 29% 24 Hour Events: SR overnight, continues to have sternal drainage overnight S: I am feeling pretty good this morning. Review of Systems - General ROS: negative for - chills or fever Respiratory ROS: negative for - shortness of breath Cardiac ROS: negative for - chest pain; positive for - incisional drainage GI ROS: negative for - abd pain, nausea or vomiting Neuro ROS: negative for - dizziness, weakness, speech difficulty, visual changes O: Last value Range last 24 hrs Temperature Temp: 36.4 ??C (97.5 ??F) Temp: [36.4 ??C (97.5 ??F)-36.7 ??C (98.1 ??F)] Heart Rate Heart Rate: 84 Heart Rate: [70-84] Blood Pressure BP: 128/72 BP: (109-148)/(65-92) BP (Arterial Line): -- Respiratory Rate Resp: 22 Resp: [16-22] SpO2 SpO2: 97 % SpO2: [95 %-100 %] I/O: 07/12 07 - 07/13 07 In: 1722 [P.O.:1280; I.V.:342] Out: 1894 [Urine:189] Diet: Carb Control diet 60// CHO counting level 2 Admit weight 86 kg Current Weight Weight - Scale: 91.2 kg (201 lb 1 oz) Patient Vitals for the past 168 hrs: Weight 07/13/17 0402 91.2 kg (201 lb 1 oz) 07/12/17 0544 92.7 kg (204 lb 5.9 oz) 07/11/17 0300 91.5 kg (201 lb 11.5 oz) 07/10/17 0435 88.8 kg (195 lb 12.3 oz) 07/08/17 0700 88.2 kg (194 lb 7.1 oz) 07/07/17 0537 82.2 kg (181 lb 3.5 oz) Physical exam: General: well appearing Neuro: AA&Ox3, no neuro deficits noted Lungs: lungs clear, diminished left base Heart: NSR on tele, regular, S1 S2 audible without murmur Abdomen: soft, non-tender, (+) bowel sounds Ext: trace edema bilaterally Incisions: sternotomy with dressing in place, serous drainage noted on dressing Lines/tubes: PIV LABS: Recent Labs 07/13/17 0426 07/12/17 0411 PT 20.8* 15.4* INR 1.8* 1.2* Recent Labs 07/13/17 0426 07/12/17 0411 07/11/17 0220 NA 143 145 -- K 3.7 Not Perf 3.8 4.5 CL 104 106 -- CO2 26 Not Perf -- BUN 25* 31* -- CREATININE 1.19 1.23 -- GLUCOSE 95 92 -- CALCIUM 7.7* 8.1* -- Assessment/Plan: 72 year old male POD#6 s/p CABGx3 with pre-operative placed IABP for severe LV dysfunction. SR overnight. Will convert amiodarone infusion to PO dosing. Yellow drainage noted on sternotomy dressing that had just been changed by nursing. On ancef. Will dose for coumadin, replete potassium. (+) BM Neuro-routine neuro exams, scheduled APAP, oxycodone prn Cardiac-continue telemetry, lisinopril 5mg daily, metoprolol 12.5mg q8h, nightly statin Pulm-RA, pulse oximetry, hourly IS GI-cardiac diet, RBOs, daily protonix - voiding, strict I+O Renal-lasix 40mg PO daily, replete K+ today and prn, may need spironolactone- will continue to monitor Heme-daily ASA, daily Coumadin, daily INR, 1.8 today, 2.5 mg coumadin tonight Endo-diabetic consult appreciated, SSI and Lantus, daily levothyroxine ID-Ancef 2gm IV q8h Dispo-CSCU, full code Signed: Martha Teague APRN Portillo Pope RN - 07/13/2017 6:50 AM EST Images from the original note were not included. 0655 Warm compress, elevation and hyaluronidase injections for small amiodarone infiltration. Dr. Brown with CT surgery notified. Images of a ffected area attached here. Trenton Ken MSW - 07/12/2017 3:47 PM EST Based on discussions with the multi-disciplinary healthcare team, the patient would benefit from inpatient level of care at discharge. ?? I have met with the patient/sales solutions representative to discuss discharge planning needs. I have provided the [facility], Office of Care Management letter from the [employer]affle Installer pertaining to rehab referrals. I have also provided a letter describing our affiliations within the [facility] and educated them about their right to choose where referrals are placed. ?? I reviewed the different levels of rehab including SNF, swing, acute and LTAC with the patient/sales solutions representative. ?? The patient/sales solutions representative has been provided a list of facilities within their preferred geographic area. ?? I have requested that the patient/sales solutions representative provide at least three choices for referral. ?? The patient/sales solutions representative have requested referrals to: ?? 1. . ?? 2. [place] ?? 3. More to be entered ?? Expected date of discharge: 07/14 Note routed to French Teacher who will communicate referrals to facilities and provide any required information. Katerin Miller RN - 07/12/2017 11:14 AM EST Images from the original note were not included. Follow Up Diabetes Consult Patient Interview Patient just back from walk with PT. Feels better today. Reviewed his glucose accord, HA1C result from 07/06 (6.8%) and hospital insulin orders with him and his . He states his PCP helps manage his DM and sees her every 3 months. He confirms that he was using glargine 22-27 units daily and 16-20 units with each meal. He denies having any low blood sugars at home. Objective Temp: [36.4 ??C (97.5 ??F)-37.3 ??C (99.1 ??F)] Heart Rate: [74-137] Resp: [16-27] BP: (105-151)/(51-102) SpO2: [93 %-100 %] Heart Rate from SPO2: -- Current Regimen Lantus:65 units once daily Lispro 1:5 insulin to carbohydrate ratio Lispro for correction q 4 hours using custom sliding scale ?? SSI q4hrly BS >140 q4h CORRECTION BOLUS to start when insulin drip discontinued ? Custom scale ? BG 140 - 160 ??Give 1 unit ? BG 161 - 180 ??Give 2 units ? BG 181 - 200 ??Give 4 units ? BG 201 - 220 ??Give 6 units ? BG 221 - 240 ??Give 9 units ? BG greater than 240, give 12 units and recheck BG in 2 hours. If BG remains greater than 240, [id number] units (no more than three times) & call for new basal insulin orders. ??If less than 240 after two hours, give no insulin and resume prior schedule. Recent Glucose Levels Recent Labs 07/12/17 0734 07/12/17 0410 07/11/17 2357 07/11/17 2032 07/11/17 1605 07/11/17 1155 07/11/17 0753 07/11/17 0422 07/11/17 0017 07/10/17 2047 07/10/17 1606 07/10/17 1508 POCGLU 109 90 98 146 223* 176 189 151 162 191 131 151 ASSESSMENT Gregory Hoang??is a 72 y.o.?male??with PMH significant for T2DM, CAD, HTN, CHF NYHA Class III-IV, MARIA VICTORIA on CPAP, BPH, thyroid carcinoma s/p thyroidectomy ??who was admitted on 07/05/2017??with late STEMI and is currently POD #4 s/p CABG X3. Glargine increased over weekend, 2/3 of total daily dose insulin) and patient now eating. Reviewed glucose goals during recovery and that he will need to checkhis FSBG AC and HS during post-op period until he sees his PCP. PLAN Lantus:65 units daily Lispro 1:5 insulin to carbohydrate ratio Lispro for correction q 4 hours using custom sliding scale ?? SSI q4hrly BS >140 q4h CORRECTION BOLUS to start when insulin drip discontinued ? Custom scale ? BG 140 - 160 ??Give 1 unit ? BG 161 - 180 ??Give 2 units ? BG 181 - 200 ??Give 4 units ? BG 201 - 220 ??Give 6 units ? BG 221 - 240 ??Give 9 units ? BG greater than 240, give 12 units and recheck BG in 2 hours. If BG remains greater than 240, [id number] units (no more than three times) & call for new basal insulin orders. ??If less than 240 after two hours, give no insulin and resume prior schedule. Will continue to follow Katerin Patel. STACIE Azul [facility] Endocrinology Diabetes Management Pager [phone] 20 minutes of this 35 minute visit was spent with the patient in counseling on diabetes and treatment plan, reviewing all glucose and insulin data as well as relevant laboratory results with the patient, and coordination of care on the inpatient unit including nursing and primary team. Makayla Stevenson APRN - 07/12/2017 9:52 AM EST Cardiac Surgery Progress Note: ID: [id number] 72 year old male POD#5 s/p CABGx3 with pre-operative placed IABP for severe LV dysfunction. pmhx pertinent for HTN, CHF, CAD, nSTEMI, IDDM, MARIA VICTORIA, BPH, thyroid carcinoma s/p thyroidectomy melanoma EF- 29% 24 Hour Events: PAF continues though less frequent. On amio gtt tx to floor BP 130/70's this am S: pt is doing well. Asymptomatic when having afib. No complaints. +flatus, + bm O: Last value Range last 24 hrs Temperature Temp: 36.7 ??C (98.1 ??F) Temp: [36.4 ??C (97.5 ??F)-37.3 ??C (99.1 ??F)] Heart Rate Heart Rate: 76 Heart Rate: [74-137] Blood Pressure BP: 137/67 BP: (105-151)/(51-102) BP (Arterial Line): (101-159)/(48-68) Respiratory Rate Resp: 16 Resp: [16-27] SpO2 SpO2: 100 % SpO2: [93 %-100 %] I/O: 07/11 0701 - 07/12 0700 In: 1599.3 [P.O.:1220; I.V.:379.3] Out: 1075 [Urine:1075] Diet: Carb Control diet 60/60/75 CHO counting level 2 Admit weight 86 kg Current Weight Weight - Scale: 92.7 kg (204 lb 5.9 oz) Patient Vitals for the past 168 hrs: Weight 07/12/17 0544 92.7 kg (204 lb 5.9 oz) 07/11/17 0300 91.5 kg (201 lb 11.5 oz) 07/10/17 0435 88.8 kg (195 lb 12.3 oz) 07/08/17 0700 88.2 kg (194 lb 7.1 oz) 07/07/17 0537 82.2 kg (181 lb 3.5 oz) 07/06/17 0600 84.8 kg (186 lb 15.2 oz) 07/05/17 1628 86 kg (189 lb 9.5 oz) Physical exam: General: NAD, resting in bed Neuro: A&Ox3, strength equal blt Lungs: lungs clear, dim bibasilar Heart: NSR on tele, rrr, no mrg Abdomen: NTND, soft Ext: no edema Incisions: CDI sternotomy LABS: Recent Labs 07/12/171 07/10/17 0428 WBC -- 12.2* HGB -- 9.8* HCT -- 30.0* PLATELET -- 135* PT 15.4* -- INR 1.2* -- Recent Labs 07/12/17 0411 07/11/17 0220 07/10/17 0428 NA 145 -- 143 K Not Perf 3.8 4.5 4.6 CL 106 -- 107 CO2 Not Perf -- 21* BUN 31* -- 20 CREATININE 1.23 -- 1.19 GLUCOSE 92 -- 178 CALCIUM 8.1* -- 7.4* Assessment/Plan: 72 year old male POD#5 s/p CABGx3 with pre-operative placed IABP for severe LV dysfunction. pmhx pertinent for HTN, CHF, CAD, nSTEMI, IDDM, MARIA VICTORIA, BPH, thyroid carcinoma s/p thyroidectomy melanoma Continue care by Diabetes Management, on SSI and lantus PAF continues, per pharm only received 2gm amio load, will continue iv amio today continue coumadin metop 12.5 tid do not change Start lisinopril 5mg daily, monitor effect on bp +BM Cr stable at 1.2 will increase lasix to 40mg po daily, will likely need addition of raiza before discharge for HF Signed: MAKAYLA WILSON APRN Yanet Diego RN - 07/11/2017 7:18 PM EST Patient arrived from [facility]. VSS. MSI dressing pulled off with fresh serousangious drainage. Makayla STRANGE notified. Incision cleaned with chlorhexidine and completely covered in guaze and metopore tape. Patient had 2 brief asymptomatic episodes of a-fib, resolved on own. Patient ate a small dinner. Denying pain. Able to ambulate to bathroom. Marck Hicks MD - 07/11/2017 11:32 AM EST Images from the original note were not included. DIABETES MANAGEMENT FOLLOW UP -patient now tolerating carb controlled diet (just started diet today), so we will add meal-associated insulin TID -s/p lantus 60 units yesterday and insulin drip discontinued with small corrections overnight q4h => will increase to 65u q11AM today. Past Medical History: Diagnosis Date ??? BPH (benign prostatic hyperplasia) 11/28/2013 ??? Melanoma 2006 mid back ??? Urinary retention 04/05/2013 No Known Allergies ??? warfarin (COUMADIN) tablet 5 mg ??? [START ON 07/12/2017] warfarin (COUMADIN) daily order reminder ??? AMIOdarone (CORDARONE) 360 mg in dextrose 5% 200 mL infusion ??? insulin glargine VIAL injection 65 Units ??? meTOPROLOL (LOPRESSOR) tablet 12.5 mg ??? insulin lispro (humaLOG) VIAL injection 0-20 Units ??? POCT Fingerstick Glucose AND insulin lispro (humaLOG) VIAL injection 0- 12 Units ??? oxyCODONE (ROXICODONE) immediate release tablet 5-15 mg ??? atorvastatin (LIPITOR) tablet 40 mg ??? acetaminophen (TYLENOL) tablet 1,000 mg ??? dextrose 50% IV syringe 25-50 mL ??? sodium chloride 0.9% infusion ??? sodium chloride 0.9% infusion ??? ondansetron (ZOFRAN) injection 4 mg ??? pantoprazole (PROTONIX) tablet 40 mg OR pantoprazole (PROTONIX) injection 40 mg ??? aspirin chewable tablet 81 mg OR aspirin suppository 300 mg ??? senna-docusate (PERICOLACE) 8.6-50 mg per tablet 2 tablet ??? magnesium hydroxide (MILK OF MAGNESIA) oral suspension 10 mL ??? bisacodyl (DULCOLAX) suppository 10 mg ??? potassium chloride 20 mEq in 100 mL OR potassium chloride 20 mEq in 100 mL OR potassium chloride 20 mEq in 100 mL ??? NORepinephrine 16 mcg/mL (standard ADULT and Pedi greater than 20 kg) infusion ??? nitroGLYcerin 50 mg in dextrose 5% 250 mL infusion ??? levothyroxine (SYNTHROID) tablet 175 mcg BP 100/61 (BP Location (NBP): Left arm, Patient Position: Lying) Pulse 84 Temp 36.8 ??C (98.2 ??F) (Oral) Resp 17 Ht 172.7 cm (5' 8) Wt 91.5 kg (201 lb 11.5 oz) SpO2 95% BMI 30.67 kg/m2 Sitting up in chair. O2 via NC Assessment: Gregory Hoang is a 72 y.o. male with PMH significant for T2DM, CAD, HTN, CHF NYHA Class III-IV, MARIA VICTORIA on CPAP, BPH, thyroid carcinoma s/p thyroidectomy who was admitted on 07/05/2017 with late STEMI and is currently POD 2 s/p CABG X3. Requiring significant dose of insulin gtt. Remains NPO but will addmeal- associate insulin orders incase he starts eating this evening. Lantus dose weight based. Diabetes adequately controlled and complicated by CAD. Currently with variability of blood glucose levels while hospitalized requiring adjustment of insulin regimen and DM medications. Requiring significant dose of insulin gtt. Remains NPO but will add meal-associate insulin orders incase he starts eating this evening. Lantus dose weight based. 07/11 -patient now tolerating carb controlled diet. -s/p lantus 60 units yesterday and insulin drip discontinued. ?? Plan: ? Increase Lantus 65 units daily ?? Start Meal associated insulin, I:C ratio 1:5 TID when patient eating ?? Changed regular diet to carb controlled level 2 diet (also discussed with ICU team as diet order was just placed this AM) ?? SSI q4hrly BS >140 q4h CORRECTION BOLUS to start when insulin drip discontinued ?? Custom scale ? BG 140 - 160 ??Give 1 unit ? BG 161 - 180 ??Give 2 units ? BG 181 - 200 ??Give 4 units ? BG 201 - 220 ??Give 6 units ?? BG 221 - 240 ??Give 9 units ? BG greater than 240, give 12 units and recheck BG in 2 hours. If BG remains greater than 240, [id number] units (no more than three times) & call for new basal insulin orders. ??If less than 240 after two hours, give no insulin and resume prior schedule. Orders for insulin placed and discussed with RN. Team updated with plan as documented above. Patient reviewed with Dr Diamond. Jeaen Tatum MD PGY-5 Endocrinology Fellow 07/11/17 ?? I have seen the patient and reviewed Dr. Tatum's above history and I agree with the details as written. The assessment and plan were formulated in discussion with me and I agree with them as documented. MARCK DIAMOND MD Makayla Wilson APRN - 07/11/2017 11:21 AM EST Cardiac Surgery Progress Note: ID: [id number] 72 year old male POD#4 s/p CABGx3 with pre-operative placed IABP for severe LV dysfunction. pmhx pertinent for HTN, CHF, CAD, nSTEMI, IDDM, MARIA VICTORIA, BPH, thyroid carcinoma s/p thyroidectomy melanoma EF- 29% 24 Hour Events: PAF overnight, afib up to 140's S: pt is doing well. Asymptomatic when having afib. No complaints. +flatus, no bm O: Last value Range last 24 hrs Temperature Temp: 36.8 ??C (98.2 ??F) Temp: [36.6 ??C (97.9 ??F)-37.2 ??C (99 ??F)] Heart Rate Heart Rate: 84 Heart Rate: [75-143] Blood Pressure BP: 100/61 BP: (98-156)/(50-86) BP (Arterial Line): (84-159)/(43-71) Respiratory Rate Resp: 17 Resp: [12-30] SpO2 SpO2: 95 % SpO2: [93 %-98 %] I/O: 07/10 0701 - 07/11 0700 In: 799 [P.O.:500; I.V.:299] Out: 2235 [Urine:2235] Diet: Carb Control diet // CHO counting level 2 Admit weight 86 kg Current Weight Weight - Scale: 91.5 kg (201 lb 11.5 oz) Patient Vitals for the past 168 hrs: Weight 07/11/17 0300 91.5 kg (201 lb 11.5 oz) 07/10/17 0435 88.8 kg (195 lb 12.3 oz) 07/08/17 0700 88.2 kg (194 lb 7.1 oz) 07/07/17 0537 82.2 kg (181 lb 3.5 oz) 07/06/17 0600 84.8 kg (186 lb 15.2 oz) 07/05/17 1628 86 kg (189 lb 9.5 oz) Physical exam: General: NAD, resting in bed Neuro: A&Ox3, strength equal blt Lungs: lungs clear, dim bibasilar Heart: irrr, rapid afib on tele, no mrg Abdomen: NTND, soft Ext: no edema Incisions: CDI sternotomy LABS: Recent Labs 07/10/17 0428 07/09/17 0230 WBC 12.2* 12.5* HGB 9.8* 10.1* HCT 30.0* 30.3* PLATELET 135* 127* Recent Labs 07/11/17 0220 07/10/17 0428 07/09/17 0230 NA -- 143 144 K 4.5 4.6 Not Perf 5.1* CL -- 107 111* CO2 -- 21* 21* BUN -- 20 17 CREATININE -- 1.19 1.34 GLUCOSE -- 178 179 CALCIUM -- 7.4* 7.1* Assessment/Plan: 72 year old male POD#4 s/p CABGx3 with pre-operative placed IABP for severe LV dysfunction. pmhx pertinent for HTN, CHF, CAD, nSTEMI, IDDM, MARIA VICTORIA, BPH, thyroid carcinoma s/p thyroidectomy melanoma Continue care by Diabetes Management, on SSI and lantus PAF continues, per pharm only received 2gm amio load, will reload with iv today Start coumadin metop 12.5 bid increased to tid Needs bm ordered suppository tx to floor When ready will add on HF meds. Signed: MAKAYLA WILSON APRN Ninfa Arnett DT - 07/11/2017 7:34 AM EST Nutrition Services - NPO note Gregory Hoang : 1945 AGE: 72 y.o. Patient Active Problem List Diagnosis Date Noted ??? *Hospital-STEMI (ST elevation myocardial infarction) 07/05/2017 Priority: High ??? Hospital-ASHD (arteriosclerotic heart disease) 07/06/2017 Priority: High ??? Hospital-Cardiomyopathy, ischemic 07/06/2017 Priority: High ??? Hospital-Hypertension, accelerated, with systolic CHF, 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 07/06/2017 Priority: High ??? BPH (benign prostatic hyperplasia) 11/28/2013 ??? Atypical nevus of abdominal wall 07/31/2013 ??? Urinary retention 04/05/2013 ??? MARIA VICTORIA (obstructive sleep apnea) on CPAP 03/31/2013 ??? Goiter 01/25/2013 ??? Seborrheic psoriasis- scalp and ingtergluteal area 10/04/2012 ??? Skin lesion of chest wall 10/04/2012 ??? Melanoma 09/22/2011 Ht Readings from Last 3 Encounters: 07/05/17 172.7 cm (5' 8) 09/03/16 172.7 cm (5' 8) 06/05/15 172.7 cm (5' 8) Wt Readings from Last 3 Encounters: 07/11/17 91.5 kg (201 lb 11.5 oz) 09/03/16 87 kg (191 lb 14.4 oz) 06/05/15 85.8 kg (189 lb 3.2 oz) Body mass index is 30.67 kg/(m^2). Labs:Results for GREGORY HOANG ( ) as of 07/11/2017 07:34 Ref. Range 07/10/2017 04:28 Sodium Latest Ref Range: 135 - 145 mmol/L 143 Potassium Latest Ref Range: 3.5 - 5.0 mmol/L 4.6 BUN Latest Ref Range: 10 - 20 mg/dL 20 Creatinine Latest Ref Range: 0.80 - 1.50 mg/dL 1.19 Estimated GFR Latest Ref Range: >=60 60 Glucose Lvl Latest Ref Range: 65 - 199 mg/dL 178 Calcium Latest Ref Range: 8.5 - 10.5 mg/dL 7.4 (L) Patient has been NPO and/or on clear liquids for 5 days. If diet can not be advanced within 24 hours, please consider alternative means of nutrition support. VIVIAN Butt Nell Ontiveros RN - 07/11/2017 7:15 AM EST 0655:while getting OOB this a.m. To bedside cardiac chair, AFib resumed ~rate 120-140; no BP issues or sx. Per , Lopressor dose given early. Marck Hicks MD - 07/10/2017 11:44 AM EST Images from the original note were not included. DIABETES MANAGEMENT FOLLOW UP -lantus 30 units given overnight patient still requiring basal insulin 2-3.5u/hr. -currently NPO. Past Medical History: Diagnosis Date ??? BPH (benign prostatic hyperplasia) 11/28/2013 ??? Melanoma 2006 mid back ??? Urinary retention 04/05/2013 No Known Allergies ??? insulin lispro (humaLOG) VIAL injection 0-20 Units ??? insulin glargine VIAL injection 60 Units ??? POCT Fingerstick Glucose AND insulin lispro (humaLOG) VIAL injection 0- 12 Units ??? oxyCODONE (ROXICODONE) immediate release tablet 5-15 mg ??? atorvastatin (LIPITOR) tablet 40 mg ??? acetaminophen (TYLENOL) tablet 1,000 mg ??? AMIOdarone (CORDARONE; PACERONE) tablet 200 mg ??? insulin regular human (HumuLIN;NovoLIN) 1unit/mL 150 Units in sodium chloride 0.9% 150 mL infusion ??? insulin regular human (HumuLIN;NovoLIN) 1 unit/mL 150 Units in sodium chloride 0.9%150 mL BOLUS 0-16 Units ??? dextrose 50% IV syringe 25-50 mL ??? sodium chloride 0.9% infusion ??? sodium chloride 0.9% infusion ??? ondansetron (ZOFRAN) injection 4 mg ??? pantoprazole (PROTONIX) tablet 40 mg OR pantoprazole (PROTONIX) injection 40 mg ??? aspirin chewable tablet 81 mg OR aspirin suppository 300 mg ??? senna-docusate (PERICOLACE) 8.6-50 mg per tablet 2 tablet ??? magnesium hydroxide (MILK OF MAGNESIA) oral suspension 10 mL ??? bisacodyl (DULCOLAX) suppository 10 mg ??? potassium chloride 20 mEq in 100 mL OR potassium chloride 20 mEq in 100 mL OR potassium chloride 20 mEq in 100 mL ??? NORepinephrine 16 mcg/mL (standard ADULT and Pedi greater than 20 kg) infusion ??? nitroGLYcerin 50 mg in dextrose 5% 250 mL infusion ??? levothyroxine (SYNTHROID) tablet 175 mcg BP 125/60 Pulse 114 Temp 36.6 ??C (97.9 ??F) (Oral) Resp 19 Ht 172.7 cm (5' 8) Wt 88.8 kg(195 lb 12.3 oz) SpO2 97% BMI 29.77 kg/m2 Sitting up in chair. O2 via NC Assessment: Gregory Hoang is a 72 y.o. male with PMH significant for T2DM, CAD, HTN, CHF NYHA Class III-IV, MARIA VICTORIA on CPAP, BPH, thyroid carcinoma s/p thyroidectomy who was admitted on 07/05/2017 with late STEMI and is currently POD 2 s/p CABG X3. Requiring significant dose of insulin gtt. Remains NPO but will addmeal- associate insulin orders incase he starts eating this evening. Lantus dose weight based. Diabetes adequately controlled and complicated by CAD. Currently with variability of blood glucose levels while hospitalized requiring adjustment of insulin regimen and DM medications. Requiring significant dose of insulin gtt. Remains NPO but will add meal-associate insulin orders incase he starts eating this evening. Lantus dose weight based. -lantus 30 units given overnight patient still requiring basal insulin 2-3.5u/hr. ?? Plan: ? Lantus 60 units now ?? Ct insulin drip and overlap with lantus for at least 2hrs and discontinue when BS <150. ?? Meal associated insulin, I:C ratio 1:5 TID when patient eating ?? SSI q4hrly BS >140 -to start when insulin drip distcontinued. CORRECTION BOLUS to start when insulin drip discontinued ?? Custom scale ? BG 140 - 160 ??Give 1 unit ? BG 161 - 180 ??Give 2 units ? BG 181 - 200 ??Give 4 units ? BG 201 - 220 ??Give 6 units ?? BG 221 - 240 ??Give 9 units ? BG greater than 240, give 12 units and recheck BG in 2 hours. If BG remains greater than 240, [id number] units (no more than three times) & call for new basal insulin orders. ??If less than 240 after two hours, give no insulin and resume prior schedule. Orders for insulin placed and discussed with RN. Team updated with plan as documented above. Patient reviewed with Dr Diamond. Jeane Tatum MD PGY-5 Endocrinology Fellow 07/10/17 ?? I have seen the patient and reviewed Dr. Tatum's above history and I agree with the details as written. The assessment and plan were formulated in discussion with me and I agree with them as documented. MARCK DIAMOND MD Samy Maldonado MD - 07/10/2017 9:37 AM EST Cardiac Surgery Progress Note: ID: [id number] 72 year old male POD#3 s/p CABGx3 with pre-operative placed IABP for severe LV dysfunction. pmhx pertinent for HTN, CHF, CAD, nSTEMI, IDDM, MARIA VICTORIA, BPH, thyroid carcinoma s/p thyroidectomy melanoma EF- 29% 24 Hour Events: - in sinus rhythm since yesterday afternoon - on insulin gtt -off all pressors - no growth on blood cultures drawn yesterday S: pt is doing well. Some pain management issues overnight, better controlled this A< O: Last value Range last 24 hrs Temperature Temp: 36.5 ??C (97.7 ??F) Temp: [36.5 ??C (97.7 ??F)-37.3 ??C (99.1 ??F)] Heart Rate Heart Rate: 85 Heart Rate: [77-122] Blood Pressure BP: 125/60 BP: (125)/(60) BP (Arterial Line): (78-140)/(40-62) Respiratory Rate Resp: 19 Resp: [16-29] SpO2 SpO2: 96 % SpO2: [95 %-99 %] I/O: 07/09 0701 - 07/10 07 In: 1143.6 [P.O.:30; I.V.:1113.6] Out: 1895 [Urine:1775] Diet: NPO diet (Hold Meds) Admit weight 86 kg Current Weight Weight - Scale: 88.8 kg (195 lb 12.3 oz) Patient Vitals for the past 168 hrs: Weight 07/10/17 0435 88.8 kg (195 lb 12.3 oz) 07/08/17 0700 88.2 kg (194 lb 7.1 oz) 07/07/17 0537 82.2 kg (181 lb 3.5 oz) 07/06/17 0600 84.8 kg (186 lb 15.2 oz) 07/05/17 1628 86 kg (189 lb 9.5 oz) Physical exam: General: NAD, resting in bed Neuro: A&Ox3, strength equal blt Lungs: lungs clear Heart: RRR, NSR on tele Abdomen: NTND, soft Ext: no edema Incisions: CDI sternotomy incision w/ bandage in place; L LE SVG harvest site c/d/i LABS: Recent Labs 07/10/17 0428 07/09/17 0230 07/08/17 0840 07/08/17 0400 07/07/17 2200 07/07/17 1730 07/07/17 1655 WBC 12.2* 12.5* -- 18.8* -- 19.6* -- HGB 9.8* 10.1* -- 11.9* 12.8* 9.2* 9.1* HCT 30.0* 30.3* -- 35.9* -- 28.0* 26.6* PLATELET 135* 127* -- 232 -- 155 177 PT -- -- 15.6* -- -- 19.0* -- INR -- -- 1.3* -- -- 1.6* -- PTT -- -- 33 -- -- 30 -- FIBRINOGEN -- -- -- -- -- 224 -- Recent Labs 07/10/17 0428 07/09/17 0230 07/08/17 0400 07/07/17 2200 NA 143 144 139 -- K 4.6 Not Perf 5.1* 4.7 3.4* CL 107 111* 104 -- CO2 21* 21* 21* -- BUN 20 16 -- CREATININE 1.19 1.34 1.55* -- GLUCOSE 178 179 -- -- CALCIUM 7.4* 7.1* -- -- ABG (Arterial Blood Gas) No results found for: PHART, PO2ART, [id number] Assessment/Plan: 72 year old male POD#3 s/p CABGx3 with pre-operative placed IABP for severe LV dysfunction. pmhx pertinent for HTN, CHF, CAD, nSTEMI, IDDM, MARIA VICTORIA, BPH, thyroid carcinoma s/p thyroidectomy melanoma Continue care by Diabetes Management, plan to transition of insulin gtt today Post-op afib with RVR- in and out, currently in sinus, gets amio 200 po bid. On metop 12.5 bid. When ready will add addition HF meds. Signed: Samy Maldonado MD Mami Thao - 07/09/2017 6:29 PM EST [facility] Encounter Note Patient Name: Gregory Hoang : [id number] MR#: [id number] Admit Date: 07/05/2017 4:20 PM Hospital Day 4 days Narrative: Patient was sitting in chair, hugging heart pillow, opened his eyes, nodding to come into room Assessment: Patient was sleepy. Intervention and Outcome: Introduced forensic nurse services and patient reached his hand out in appreciation. Follow-up: Director Clinical Pharmacology remains available for support. Time in Direct Care: 5 min. Mami Thao 07/09/2017 Philipp, Nick Patel MD - 07/09/2017 1:35 PM EST STAFF PROGRESS NOTE Critical Care Medicine Author: NICK SEGAL MD Patient seen and examined on critical care rounds. Gregory Hoang is a 72 y.o. male with the following active issues:: Active Hospital Problems Diagnosis ??? STEMI (ST elevation myocardial infarction) ??? ASHD (arteriosclerotic heart disease) ??? Cardiomyopathy, ischemic ??? Hypertension, accelerated, with systolic CHF, 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 Resolved Hospital Problems Diagnosis Date Resolved No resolved problems to display. ASSESSMENT, MANAGEMENT, and DECISION MAKING: Critically ill with 3VDl CHF, and reduced LVEF. Mild edema pattern on CXR on admission. Elevated LVEDP on Cath. Currently POD2 with IABP removed, tolerating extubation this AM, resolved metabolic acidosis, now intermittent afib and hypotension today. Febrile (38.4) with wbc 12.5 from 18.8 Amiodarone drip and load underway Back on pressors Concern for possible infection, will workup as appropriate with cultures. Starting diuresis EXAM: Physical Exam Constitutional: He appears well-developed. No distress. He is sedated and intubated. Cardiovascular: Normal rate. Exam reveals no friction rub. Pulmonary/Chest: No stridor. He is intubated. No respiratory distress. He has no wheezes. Abdominal: Soft. There is no rebound. Musculoskeletal: He exhibits no edema. Skin: Skin is warm. He is not diaphoretic. No erythema. Last value Range last 24 hrs Temperature Temp: 37.3 ??C (99.1 ??F) Temp: [37.3 ??C (99.1 ??F)-38.4 ??C (101.1 ??F)] Heart Rate Heart Rate: 82 Heart Rate: [77-156] Blood Pressure BP: 171/76 BP: -- Respiratory Rate Resp: 27 Resp: [16-27] SpO2 SpO2: 99 % SpO2: [97 %-100 %] Art BP BP (Arterial Line): 123/51 BP (Arterial Line): (78-184)/(40-90) Last Ht 07/05/17 172.7 cm (5' 8) Last Wt 07/08/17 88.2 kg (194 lb 7.1 oz) Body mass index is 29.57 kg/(m^2). IS PATIENT CRITICALLY ILL ? Is there a high potential of sudden, clinically significant, or life threatening deterioration? Yes Is there a need for direct personal assessment and management to treat/prevent multiple vital organfailure/deterioration? Yes If this patient is not critically ill, the reason for continued hospitalization is urgent CABG. PATIENT IS CRITICALLY ILL WITH THESE DIAGNOSES BEING MANAGED BY [facility] TEAM: Congestive Heart Failure Systolic Acute Hypotension Req Fluids/Pressors Arterial Shock Cardiogenic I personally performed 45 minutes of aggregate critical care time exclusive of procedures and teaching. This includes time spent during direct patient evaluation and reassessment, interpreting diagnostic tests, directing life and/or organ supporting interventions and documentation on the unit. NICK SEGAL MD 07/09/2017 Yane Vences RN - 07/09/2017 10:45 AM EST Report given to medical staff manager to cover care Maddison Cee PA - 07/09/2017 9:00 AM EST Cardiac Surgery Progress Note: ID: [id number] 72 year old male POD#2 s/p CABGx3 with pre-operative placed IABP for severe LV dysfunction. pmhx pertinent for HTN, CHF, CAD, nSTEMI, IDDM, MARIA VICTORIA, BPH, thyroid carcinoma s/p thyroidectomy melanoma EF- 29% 24 Hour Events: - IABP removed yesterday - Extubated at 0600 - Tmax ON at 38.4- decreased w/ APAP, WBC down 12.5 from 18.8 - A fib w RVR ON, amio bolus and gtt started, NSR this AM - Gtts- alternating levo with ntg, both currently off, amio, insulin, fentanyl S: pt is doing well- recently extubated. Reporting moderate pain- currently on fentanyl gtt. No nausea or vomiting. No flatus. O: Temperature Temp: 37.3 ??C (99.1 ??F) Temp: [37.3 ??C (99.1 ??F)-38.4 ??C (101.1 ??F)] Heart Rate Heart Rate: 122 Heart Rate: [80-156] Blood Pressure BP: 171/76 BP: -- Respiratory Rate Resp: 24 Resp: [16-24] SpO2 SpO2: 98 % SpO2: [94 %-100 %] Drips: Amio Insulin gtt Fentanyl I/O last 3 completed shifts: In: 7977.4 [I.V.:7477.4; Other:500] Out: 3615 [Urine:3000; Other:615] I- 4 L O- 2.7 L UOP 2.2 L (800 cc overnight, 65 cc/hr) L pleural: 95/24 hrs, 50/12 hrs, 0 cc/12 hrs Meds: 280/24 hrs, 100 cc/12 hrs, 50 cc/12 hrs Net: +1.3 L/admission Admit weight 86 kg Current Weight Weight - Scale: 88.2 kg (194 lb 7.1 oz) Patient Vitals for the past 168 hrs: Weight 07/08/17 0700 88.2 kg (194 lb 7.1 oz) 07/07/17 0537 82.2 kg (181 lb 3.5 oz) 07/06/17 0600 84.8 kg (186 lb 15.2 oz) 07/05/17 1628 86 kg (189 lb 9.5 oz) Physical exam: General: NAD, sitting up in bed, still slightly drowsy from anesthesia Neuro: A&Ox3, strength equal blt Lungs: lungs auscultated blt Heart: RRR, NSR on tele Abdomen: NTND, soft, hypoactive BS Ext: no edema, dopplerable pedal pulses Incisions: CDI sternotomy incision w/ bandage in place; L LE SVG harvest site c/d/i; IABP removal site without ecchymosis, very small unchanged hematoma at groin Tubes/Lines/Drains: a line, TPW, meds CT, L pleural CT, ROXANA ocasio LABS: Recent Labs 07/09/17 0230 07/08/17 0840 07/08/17 0400 07/07/17 2200 07/07/17 1730 07/07/17 1655 07/07/17 0515 07/07/17 0000 07/06/17 1815 WBC 12.5* -- 18.8* -- 19.6* -- 7.6 -- -- -- HGB 10.1* -- 11.9* 12.8* 9.2* 9.1* 14.4 < > -- -- HCT 30.3* -- 35.9* -- 28.0* 26.6* 42.1 -- -- -- PLATELET 127* -- 232 -- 155 177 188 -- -- -- PT -- 15.6* -- -- 19.0* -- -- -- -- -- INR -- 1.3* -- -- 1.6* -- -- -- -- -- PTT -- 33 -- -- 30 -- 69* -- 103* 94* FIBRINOGEN -- -- -- -- 224 -- -- -- -- -- < > = values in this interval not displayed. Recent Labs 07/09/17 0230 07/08/17 0400 07/07/17 2200 07/07/17 0515 07/06/17 1940 NA 144 139 -- 142 -- K Not Perf 5.1* 4.7 3.4* 4.4 3.9 CL 111* 104 -- 102 -- CO2 21* 21* -- 26 -- BUN 17 16 -- 15 -- CREATININE 1.34 1.55* -- 1.09 -- GLUCOSE 179 -- -- 203* -- CALCIUM 7.1* -- -- 8.6 -- MAGNESIUM -- -- -- 0.94 -- ABG (Arterial Blood Gas) Lab Results Component Value Date pH Art 7.36 07/09/2017 pO2 Art 79 (L) 07/09/2017 pCO2 Art 38 07/09/2017 Assessment/Plan: 72 year old male POD#2 s/p CABGx3 with pre-operative placed IABP for severe LV dysfunction. pmhx pertinent for HTN, CHF, CAD, nSTEMI, IDDM, MARIA VICTORIA, BPH, thyroid carcinoma s/p thyroidectomy melanoma Continue care by Diabetes Management. D/C chest tubes. Post-op afib with RVR- continue amio gttx 24 hrs, initiate amio 200 po bid tonight. Initiate metop 12.5 bid. Initiate Lasix 20 IV qd for 2 days, then transition to PO. Try to add on Lisinopril +/- Spironolactone when appropriate for HF. Neuro: APAP IV, oxy prn CV: lipitor 80', maintain TPW, remove chest tubes, discontinue PA catheter, initiate metop 12.5 bid;consider adding lisinopril and spironolactone for heart failure management Resp: IS, OOB, aggressive pulmonary toilet, wean O2 as tolerated GI: RBOs, protonix : ocasio, continue to monitor I+O Renal: Lasix 20 IV qd x 2 days, then transition to Lasix 20 po. Check K, replete K prn ID: periop antibiotics complete Heme: ASA 81 Endo: insulin gtt, continue care per diabetes management, appreciate the consult Dispo: CVCC, FULL CODE DW Attending Surgeon on rounds. Signed: STEPHANIE Iqbal [facility] Section of Cardiac Surgery Date: 07/09/2017 Magnolia Santiago [facility] - 07/09/2017 1:[address] ICU Protocol Vent Settings: Servo I Ventilator Mode: SIMV Vol + PS Tidal Volume Set: 550 Resp Rate Set: 16 PEEP Set: 5 FiO2: 40 % PSV: 10 Ventilator Measurements: Resp: 16 Vt Exhaled: 569 PIP: 25 MAP: 10 Plateau Press: 16 Ve: 8.9 PEEP: SpO2: 98 % EtCO2: 34 mmHg Airway: 8.0 @ 23 cm at the Gum. Skin Integrity: WDL Breath Sounds: Clear;Diminished. Secretions: Small white. Assessment / Events / Plan of the Day: Pt received on above settings. Off sedation overnight. SBT done this morning and PT extubated at 0556. Will continue to monitor pt. Gretchen Cummings PT - 07/08/2017 3:34 PM EST PT Note PT referral received. Pt's chart reviewed. IABP in place. Will follow-up for evaluation as approp when IABP d/c'ed. Gretchen Carolina, PT Pager [phone] Maddison Cee PA - 07/08/2017 11:27 AM EST Cardiac Surgery Progress Note: ID: [id number] 72 year old male POD#1 s/p CABGx3 with pre-operative placed IABP for severe LV dysfunction. pmhx pertinent for HTN, CHF, CAD, nSTEMI, IDDM, MARIA VICTORIA, BPH, thyroid carcinoma s/p thyroidectomy melanoma EF- 29% 24 Hour Events: - from OR at 1830, kept intubated sedated ON w/ IABP in place - received 1 amp of bicarb for met acidosis- improved to 7.3/41/83/19.6; lactate improved from peak of 8 to 4.3 - currently on epi at 4, levo at 11, fent 150, prop 75, insulin gtt @ 16 - passed IABP this AM S: pt intubated and sedated with IABP in place. O: Temperature Temp: 37.9 ??C (100.2 ??F) Temp: [35.3 ??C (95.5 ??F)-38.2 ??C (100.8 ??F)] Heart Rate Heart Rate: 100 Heart Rate: [51-102] Blood Pressure BP: 171/76 BP: -- Respiratory Rate Resp: 12 Resp: [8-25] SpO2 SpO2: 98 % SpO2: [93 %-100 %] Hemodynamics: CO 6.9 CI 3.6 PA 33/15 (24) CVP 10 Vent: Mode SIMV Rate 16 TV 550 PS 10 Peep 5 FIO2 40% Drips: Levo 11 Epi 4 Prop 75 fent 150 Insulin 16 I/O last 3 completed shifts: In: 8126.1 [I.V.:7087.1; Blood:1039] Out: 4295 [Urine:4025; Other:270] I/O this shift: In: 800 [I.V.:800] Out: 470 [Urine:435; Other:35] I- 6.5 L O- 3.1 L UOP 2.9 L (800 cc overnight, 65 cc/hr) L pleural: 65/24 hrs, 45/12 hrs, 10 cc/12 hrs Meds: 205/24 hrs, 195 cc/12 hrs, 70 cc/12 hrs Net: +3.7 L/admission Admit weight 86 kg Current Weight Weight - Scale: 88.2 kg (194 lb 7.1 oz) Patient Vitals for the past 168 hrs: Weight 07/08/17 0700 88.2 kg (194 lb 7.1 oz) 07/07/17 0537 82.2 kg (181 lb 3.5 oz) 07/06/17 0600 84.8 kg (186 lb 15.2 oz) 07/05/17 1628 86 kg (189 lb 9.5 oz) Physical exam: General: intubated, sedated Neuro: sedated Lungs: ventilated breath sounds auscultated Heart: RRR, IABP in place Abdomen: NTND, soft, hypoactive BS Ext: no edema, 2+ blt posterior tibial, dopplerable but very diminished on L LE, 1+ DT on r LE Incisions: CDI sternotomy incision w/ bandage in place; L LE SVG harvest site c/d/i Tubes/Lines/Drains: IABP, a line (radial and femoral), TPW, meds CT, L pleural CT, ocasio, RIJ LABS: Recent Labs 07/08/17 0840 07/08/17 0400 07/07/17 2200 07/07/17 1730 07/07/17 1655 07/07/17 0515 07/07/17 0000 07/06/17 1815 07/06/17 1124 07/06/17 0220 07/05/172019 WBC -- 18.8* -- 19.6* -- 7.6 -- -- -- 7.6 10.3* HGB -- 11.9* 12.8* 9.2* 9.1* 14.4 -- -- -- 13.4* 14.1 HCT -- 35.9* -- 28.0* 26.6* 42.1 -- -- -- 39.7* 40.8 PLATELET -- 232 -- 155 177 188 -- -- -- 189 204 PT 15.6* -- -- 19.0* -- -- -- -- 13.3 -- -- INR 1.3* -- -- 1.6* -- -- -- -- 1.0 -- -- PTT 33 -- -- 30 -- 69* 103* 94* 52* 52* 32 FIBRINOGEN -- -- -- 224 -- -- -- -- -- -- -- Recent Labs 07/08/17 0400 07/07/17 2200 07/07/17 0515 07/06/17 1940 07/06/17 0810 07/05/17201907/05/17 1655 NA 139 -- 142 -- 141 -- 139 142 K 4.7 3.4* 4.4 3.9 4.5 < > 3.8 4.0 CL 104 -- 102 -- 101 -- 98 100 CO2 21* -- 26 -- 27 -- 27 28 BUN 16 -- 15 -- 16 -- 20 19 CREATININE 1.55* -- 1.09 -- 1.04 -- 1.12 1.04 GLUCOSE -- -- 203* -- 199 -- 321* 230* CALCIUM -- -- 8.6 -- 8.1* -- 8.1* 8.5 MAGNESIUM -- -- 0.94 -- 0.84 -- 0.68* 0.78 < > = values in this interval not displayed. ABG (Arterial Blood Gas) Lab Results Component Value Date pH Art 7.30 (L) 07/08/2017 pO2 Art 83 (L) 07/08/2017 pCO2 Art 41 07/08/2017 Assessment/Plan: 72 year old male POD#1 s/p CABGx3 with pre-operative placed IABP for severe LV dysfunction. pmhx pertinent for HTN, CHF, CAD, nSTEMI, IDDM, MARIA VICTORIA, BPH, thyroid carcinoma s/p thyroidectomy melanoma Remove IABP. Consult Diabetes Management. Will plan to start weaning sedation 4- 6 hrs after IABP removal. Maintain chest tubes until IABP out and awake. Neuro: APAP IV, fentanyl, propofol; plan to wean sedation 4-6 hrs following IABP removal CV: lipitor 80', epi and levo- wean as tolerated, remove IABP, maintain TPW, maintain chest tubes until IABP out and more awake, continue to follow metabolic acidosis and lactate Resp: ventilator, possible extubation later today GI: RBOs, protonix : ocasio, continue to monitor I+O Renal: check K, replete K prn ID: periop antibiotics Heme: ASA 81 Endo: insulin gtt, consult diabetes management Dispo: CV[facility], FULL CODE DW Attending Surgeon on rounds. Signed: STEPHANIE Iqbal [facility] Section of Cardiac Surgery Date: 07/08/2017 Nick Segal MD - 07/08/2017 10:27 AM EST STAFF PROGRESS NOTE Critical Care Medicine Author: NICK SEGAL MD Patient seen and examined on critical care rounds. Gregory Hoang is a 72 y.o. male with the following active issues:: Active Hospital Problems Diagnosis ??? STEMI (ST elevation myocardial infarction) ??? ASHD (arteriosclerotic heart disease) ??? Cardiomyopathy, ischemic ??? Hypertension, accelerated, with systolic CHF, 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 Resolved Hospital Problems Diagnosis Date Resolved No resolved problems to display. ASSESSMENT, MANAGEMENT, and DECISION MAKING: Critically ill with 3VDl CHF, and reduced LVEF. Mild edema pattern on CXR on admission. Elevated LVEDP on Cath. Currently POD1 with IABP, passing a trial and plan for removal today. Metabolic acidosis treated with bicarb Breathing trial when feasible Remains on pressors and inotropes, will attempt to wean today. May benefit from diuresis when feasible given presentation in CHF. EXAM: Physical Exam Constitutional: He appears well-developed. No distress. He is sedated and intubated. Cardiovascular: Normal rate. Exam reveals no friction rub. Pulmonary/Chest: No stridor. He is intubated. No respiratory distress. He has no wheezes. Abdominal: Soft. There is no rebound. Musculoskeletal: He exhibits no edema. Skin: Skin is warm. He is not diaphoretic. No erythema. Last value Range last 24 hrs Temperature Temp: 37.9 ??C (100.2 ??F) Temp: [35.3 ??C (95.5 ??F)-38.2 ??C (100.8 ??F)] Heart Rate Heart Rate: 89 Heart Rate: [51-102] Blood Pressure BP: 171/76 BP: -- Respiratory Rate Resp: 13 Resp: [8-25] SpO2 SpO2: 98 % SpO2: [94 %-100 %] Art BP BP (Arterial Line): 105/48 BP (Arterial Line): (70-147)/(27-102) Last Ht 07/05/17 172.7 cm (5' 8) Last Wt 07/08/17 88.2 kg (194 lb 7.1 oz) Body mass index is 29.57 kg/(m^2). IS PATIENT CRITICALLY ILL ? Is there a high potential of sudden, clinically significant, or life threatening deterioration? Yes Is there a need for direct personal assessment and management to treat/prevent multiple vital organfailure/deterioration? Yes If this patient is not critically ill, the reason for continued hospitalization is urgent CABG. PATIENT IS CRITICALLY ILL WITH THESE DIAGNOSES BEING MANAGED BY CCS TEAM: Congestive Heart Failure Systolic Acute Hypotension Req Fluids/Pressors Arterial I personally performed 35 minutes of aggregate critical care time exclusive of procedures and teaching. This includes time spent during direct patient evaluation and reassessment, interpreting diagnostic tests, directing life and/or organ supporting interventions and documentation on the unit. NICK SEGAL MD 07/08/2017 Jay Munoz [facility] - 07/08/2017 4:[address] Surgery vent Protocol SBT: Not yet awake (purposeful sedation) Servo I Ventilator Mode: SIMV Vol + PS Tidal Volume Set: 550 Resp. Rate Set: 16 Set PEEP (cm H2O): 5 Set FiO2: 40 % Vent measurements: Peak Inspiratory Pressure: 26 Plateau Pressure (cm H2O): 16 Resp: 16 Tidal Volume Measured Exp.: 541 Minute Ventilation Total Exhaled (L/min): 8.8 Airway: #8 ETT secured 23 @ gumline Breath Sounds: Clear/Diminished Secretions: Small Assessment / Events / Plan of the Day: Gregory is post op day 1 CT surgery and as a result remains purposefully sedated overnight with no plans of weaning/SBT. Vent settings have been adjusted to ABG's which at time of this note continue to show a mild metabolic acidosis. We will transition to weaning and PSBT's at care teams request. Daphne Shahid MD - 07/07/2017 2:13 PM EST Cardiovascular Critical Care Attending Note Gregory Hoang 1945 Age: 72 y.o. PCP: Lovely Vicente MD Date of Service: 07/07/2017 Date of Admission: 07/05/2017 Length of Stay Hospital Day 2 days The patient was seen and examined on critical care rounds. Gregory Hoang is a 72 y.o. male with the following active issues: Active Hospital Problems Diagnosis ??? STEMI (ST elevation myocardial infarction) ??? ASHD (arteriosclerotic heart disease) ??? Cardiomyopathy, ischemic ??? Hypertension, accelerated, with systolic CHF, 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 Resolved Hospital Problems Diagnosis Date Resolved No resolved problems to display. MEDICATIONS: Scheduled Meds: ??? [MAR Hold] lidocaine 10 mL INTRA-URETHRAL Once ??? [MAR Hold] meTOPROLOL tartrate 12.5 mg Oral 2 times per day ??? [MAR Hold] chlorhexidine 15 mL Oral BID ??? [MAR Hold] aspirin 81 mg Oral Daily ??? [MAR Hold] levothyroxine 175 mcg Oral QAM ??? [MAR Hold] sodium chloride 0.9 % 5 mL Intravenous BID ??? [SEP Hold] insulin regular human 0.5-16 Units/hr Intravenous Change bag every evening ??? [SEP Hold] atorvastatin 80 mg Oral QPM Continuous Infusions: ??? electrolyte (pH 7.4) ??? [MAR Hold] heparin (porcine) 2,400 Units/hr (07/07/17 1000) ? ? [SEP Hold] nitroPRUSSide 0.2 mg/mL (standard ADULT & Pedi greater than 20kg) infusion Stopped (07/06/17 1500) EXAM: Last value Range last 24 hrs Temperature Temp: 36.7 ??C (98.1 ??F) Temp: [36.4 ??C (97.5 ??F)-36.9 ??C (98.4 ??F)] Heart Rate Heart Rate: 97 Heart Rate: [69-100] Blood Pressure BP: 171/76 BP: (123-171)/(63-78) Respiratory Rate Resp: 22 Resp: [9-22] SpO2 SpO2: 95 % SpO2: [93 %-99 %] Art BP BP (Arterial Line): 140/102 BP (Arterial Line): (80-147)/(48-102) Weights: Patient Vitals for the past 168 hrs: Weight 07/07/17 0537 82.2 kg (181 lb 3.5 oz) 07/06/17 0600 84.8 kg (186 lb 15.2 oz) 07/05/17 1628 86 kg (189 lb 9.5 oz) Gen- Alert, oriented, anxious, at the bedside. HEENT- anicteric sclera Chest- Clear anterolaterally CV- Regular, normal S1 and S2, IABP sounds, soft + S4. Abd- Soft, non tender Ext- No edema, warm to feet. Pulses intact. IABP in place in R femoral. No hematoma. 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 Doppler pulses. IABP in R femoral artery IABP- interrogated at the bedside, adjusted at the bedside. Good augmentation ASSESSMENT, MANAGEMENT, and DECISION MAKING: The patient became agitated and somewhat delirious last night, resulting in sitting up out of bed, pulling out his IV, but fortunately without any compromise of his IABP. Chest x-ray demonstrates a slight withdrawal of the IABP compared to yesterday, and I reinserted the catheter (still in a sterile sheath) for better positioning prior to his OR. He has not had any recurrent angina. He had a brisk diuresis with Lasix. His labile hypertension was somewhat better, and night prior to his discontinued. Heart rate has decreased slightly, and he is tentatively scheduled for the OR today. IS THE PATIENT CRITICALLY ILL? Is there a high potential of sudden, clinically significant, or life threatening deterioration? Yes Is there a need for direct personal assessment and management to treat/prevent multiple vital organ failure/deterioration? Yes If this patient is not critically ill, the reason for continued hospitalization is NA. PATIENT IS CRITICALLY ILL WITH THESE DIAGNOSES BEING MANAGED BY Cardiology team providing critical care services ARDS PA Catheter Hyponatremia Hypoxemic Resp Failure Cardiogenic Shock Hypernatremia Pneumonia req Ventilator x Acute Myocardial Infarction Hyperkalemia Hypercarbic Resp Failure Subarachnoid Hemorrhage Acute Drug Ingestion / OD Respiratory Acidosis Traumatic Brain Injury Acute Renal Failure Acute Resp Failure Coma Acute Liver Failure Metabolic Acidosis Stupor Thrombocytopenia Hypotension, Fluids Delirium Neutropenia Hypotension, Pressors Acute Encephalopathy x Hypertensive Emergency Sepsis Ascites Req Treatment Malnutrition Septic Shock with SIRS Coagulopathy Req Treatment x IV Nipride needing a-line monitoring IABP placement Anaphylaxis Active Hemorrhage I personally performed 30 minutes of aggregate critical care time exclusive of procedures and teaching. This includes time spent during direct patient evaluation and reassessment, interpreting diagnostic tests, directing life and/or organ supporting interventions and documentation on the unit. DAPHNE SHAHID MD 07/07/2017 Dinorah Ramírez MD - 07/07/2017 6:02 AM EST Inpatient Cardiology Progress Note Patient Name: Gregory Hoang Date of Admission: 07/05/2017 ( Hospital Day 2 days ) Service: S2 ID: Gregory Hoang is a 72 y.o. male with a history of MARIA VICTORIA (on CPAP), DM2, COPD, HTN, HLD, GERD, hypothyroidism s/p thyroidectomy for thyroid cancer), and melanoma presenting with late STEMI s/p cath showing multi-vessel disease with LVEDP 38. Active Problems: Active Hospital Problems Diagnosis ??? STEMI (ST elevation myocardial infarction) ??? ASHD (arteriosclerotic heart disease) ??? Cardiomyopathy, ischemic ??? Hypertension, accelerated, with systolic CHF, 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 Resolved Hospital Problems Diagnosis Date Resolved No resolved problems to display. 24 hr events/Subjective: - He was net negative 1.1L at 9PM so no additional Lasix was given - He had bilateral restless legs (chronic) for which he received magnesium - His troponin peaked at 2.34 07/06/2017 at 14:00 and is now down-trending - He was hypotensive to 90s after metoprolol but was asleep during this. BPs up after waking up. - He was delirious overnight around 1AM and sat upright in bed. He had some blood from the balloon pump catheter insertion site. CXR angulated, but the tip of the balloon pump still appears to be in the aortic knob. He was easily redirectable after the event. - Not currently on nitroprusside drip ROS: Denies CP, SOB, palpitations, PND, orthopnea, dizziness/LH, LE swelling, nausea, vomiting, abdominal pain. He does have some pain in the calves bilaterally and tingling sensation in his left leg, which he attributes to restless legs (happens nightly for him). Telemetry: Sinus with rates in 70s-90s, very rare PVCs, 3 beats NSVT Medications ??? meTOPROLOL tartrate 12.5 mg Oral 2 times per day ??? chlorhexidine 15 mL Oral BID ??? aspirin 81 mg Oral Daily ??? levothyroxine 175 mcg Oral QAM ??? sodium chloride 0.9 % 5 mL Intravenous BID ??? insulin regular human 0.5-16 Units/hr Intravenous Change bag every evening ??? atorvastatin 80 mg Oral QPM LORazepam, acetaminophen, heparin (porcine) AND heparin (porcine), sodium chloride 0.9 %, lidocaine, nitroGLYcerin, iohexol, dextrose 50%, insulin regular human, potassium chloride OR potassiumchloride Physical Exam: Last value Range last 24 hrs Temperature Temp: 36.9 ??C (98.4 ??F) Temp: [36.4 ??C (97.5 ??F)-36.9 ??C (98.4 ??F)] Heart Rate Heart Rate: 87 Heart Rate: [69-107] Blood Pressure BP: 171/76 BP: (123-171)/(56-83) Respiratory Rate Resp: 16 Resp: [15-23] SpO2 SpO2: 95 % SpO2: [93 %-99 %] IABP BPs: 130-140s/50s-60s On room air Intake/Output Summary (Last 24 hours) at 07/07/17 0616 Last data filed at 07/07/17 0500 Gross per 24 hour Intake 1701.96 ml Output 2800 ml Net -1098.04 ml Patient Vitals for the past 168 hrs: Weight 07/06/17 0600 84.8 kg (186 lb 15.2 oz) 07/05/17 1628 86 kg (189 lb 9.5 oz) Admit wt: 86 kg Gen: pleasant gentleman lying comfortably in bed in NAD HEENT: moist mucous membranes CV: RRR, when balloon pump is paused he has normal S1 and S2 with soft S4, no murmus appreciated, JVP 2cm Resp: CTABL in anterior and lateral ballesteros ballesteros Abd: +BS, soft, non-tender, non-distended Ext: warm, well-perfused,normal appearing skin, 2+ PT and DP pulses bilaterally, no edema, catheter site without erythema or TTP and normal appearing dressing Neuro: alert and responsive. Grossly intact. Labs Recent Labs 07/07/1751407/06/1721907/05/172019 WBC 7.6 7.6 10.3* HGB 14.4 13.4* 14.1 HCT 42.1 39.7* 40.8 PLATELET 188 189 204 Recent Labs 07/07/1751407/06/170 07/06/1780907/05/172019 NA 142 -- 141 -- 139 K 4.4 3.9 4.5 < > 3.8 CL 102 -- 101 -- 98 CO2 26 -- 27 -- 27 BUN 15 -- 16 -- 20 CREATININE 1.09 -- 1.04 -- 1.12 < > = values in this interval not displayed. Recent Labs 07/07/1751407/06/1780907/05/172019 CALCIUM 8.6 8.1* 8.1* MAGNESIUM 0.94 0.84 0.68* Recent Labs 07/07/1751413/17 0000 07/06/17 1815 07/06/17 1124 INR -- -- -- 1.0 PT -- -- -- 13.3 PTT 69* 103* 94* 52* Recent Labs 07/07/17 0515 07/06/17 1940 07/06/17 1410 CK 88 93 101 TROPONINT 2.07* 2.27* 2.34* HgA1C 6.8% Triglyceride 129 HDL 32 Imaging/Studies: CXR 07/07/2017: Intra-aortic balloon pump tip appears mildly retracted in the interval, approximately 3.7 cm below the superior aspect of the aortic knob. Similar to mildly improved mild interstitial edema. No other appreciable change in appearance of the chest. Echo Transthoracic 07/05/2017: The left ventricle is mildly dilated. Left ventricular wall thickness is normal. There are left ventricular segmental wall motion abnormalities present, as shown in the diagram below. Global left ventricular systolic function is severely reduced. The quantitative left ventricular ejection fraction by biplane Oneill's method is 29%. Doppler assessment is consistent with elevated left sided filling pressure. 2. Right ventricular chamber size, wall thickness, and systolic function are within normal limits. 3. The left atrium is moderately dilated. The right atrium appears normal. 4. There is no hemodynamically significant valve disease. 5. See remainder of report for additional findings. EKG 07/05/2017: Sinus tachycardia. Cannot rule out 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). T wave abnormality, consider lateral ischemia. Abnormal ECG. When compared with ECG of 05-JUL-2017 16:32, No significant change was found. Cardiac Catheterization 07/06/2017: RIGHT dominance LVEDP >35 Left main: There was mild diffuse disease of the entire vessel segment of the left main artery. The distal segment of the left main had a single discrete 40% stenosis. LAD: There was mild diffuse disease of the entire vessel segment of the left anterior descending artery (LAD). The mid segment of the LAD had a single discrete 90% stenosis. This lesion involved bifurcation. There was a 65% long segmental stenosis of the proximal segment of the first diagonal branch (D iagonal 1) of the LAD. The Diagonal 1 was large. LCx: There was mild diffuse disease of the entire vessel segment of the left circumflex artery (LCX). The mid segment of the LCX had a single discrete 50% stenosis. RCA: There was mild diffuse disease of the entire vessel segment of the right coronary artery (RCA).There were multiple discrete 60% stenoses of the mid segment of the right posterior descending branch (RPDA) of the RCA. Ramus: There was a 95% single discrete stenosis of the ostial segment of the ramus. Assessment: Gregory Hoang is a 72 y.o. male w/ a h/o MARIA VICTORIA (on CPAP), DM2, COPD, HTN, HLD, GERD, and hypothyroidism s/p thyroidectomy for thyroid cancer), and melanoma presenting with late STEMI. Cath showing MVD (proximal LCx, Ramus, LAD) with LVEDP 38. CT surgery consulted for potential CABG, which is planned for 07/07/2017. IABP placed to preserve coronary perfusion while awaiting CABG. Plan: #Late STEMI - IABP in place given multi-vessel disease, small arteries, and reduced LV function, heparin runningthrough [] Will need to be advanced slightly given movement per CXR - CABG planned for 07/07/2017 [] NPO at midnight 07/06/2017 - s/p plavix load, holding further doses for CABG - continue ASA - continue statin - Intermittently on Nitroprusside drip for HTN control, aim for SBP<130 [] IABP pressures and cuff pressures not correlating (cuff pressures higher) - metoprolol 12.5mg BID - continue heparin drip - Holding diuresis today prior to the OR given apparent euvolemia ?? #DM2 - insulin drip as BG up to 300s and pending CABG - holding home metformin ?? #Home Meds - continue levothyroxine 175mcg - Has CPAP for night time #Restless legs - On home magnesium, repleting here as needed #Anxiety - Ativan 0.5mg q6h as needed ?? # Routine - DVT PPx: heparin drip - GI PPx: none - Diet: NPO - Lines/Tubes: PIV x2, IABP, arterial line - Dispo: CV[facility] - code status: Full Code Dinorah Ramírez MD, PGY-1 Cardiology S1 (pgr. [id number]) Daphne Shahid MD - 07/06/2017 10:18 PM EST Cardiovascular Critical Care Attending Note Gregory Hoang 1945 Age: 72 y.o. PCP: Lovely Vicente MD Date of Service: 07/06/2017 Date of Admission: 07/05/2017 Length of Stay Hospital Day 1 day The patient was seen and examined on critical care rounds. Gregory Hoang is a 72 y.o. male with the following active issues: Active Hospital Problems Diagnosis ??? STEMI (ST elevation myocardial infarction) ??? ASHD (arteriosclerotic heart disease) ??? Cardiomyopathy, ischemic ??? Hypertension, accelerated, with systolic CHF, 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 Resolved Hospital Problems Diagnosis Date Resolved No resolved problems to display. MEDICATIONS: Scheduled Meds: ??? meTOPROLOL tartrate 12.5 mg Oral 2 times per day ??? chlorhexidine 15 mL Oral BID ??? aspirin 81 mg Oral Daily ??? levothyroxine 175 mcg Oral QAM ??? sodium chloride 0.9 % 5 mL Intravenous BID ??? insulin regular human 0.5-16 Units/hr Intravenous Change bag every evening ??? atorvastatin 80 mg Oral QPM Continuous Infusions: ??? heparin (porcine) 2,050 Units/hr (07/06/17 1900) ? ? nitroPRUSSide 0.2 mg/mL (standard ADULT & Pedi greater than 20kg) infusion Stopped () EXAM: Last value Range last 24 hrs Temperature Temp: 36.4 ??C (97.5 ??F) Temp: [36.4 ??C (97.5 ??F)-36.8 ??C (98.2 ??F)] Heart Rate Heart Rate: 76 Heart Rate: [76-107] Blood Pressure BP: 123/78 BP: (123-164)/(43-83) Respiratory Rate Resp: 16 Resp: [14-23] SpO2 SpO2: 97 % SpO2: [92 %-98 %] Art BP BP (Arterial Line): 105/66 BP (Arterial Line): (87-138)/(57-104) Weights: Patient Vitals for the past 168 hrs: Weight 07/06/17 0600 84.8 kg (186 lb 15.2 oz) 07/05/17 1628 86 kg (189 lb 9.5 oz) Gen- Alert, oriented, anxious HEENT- anicteric sclera Chest- Clear anterolaterally CV- Regular, normal S1 and S2, IABP sounds, + S4. Abd- Soft, non tender Ext- No edema, warm to feet. Pulses intact. IABP in place in R femoral. 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 ASSESSMENT, MANAGEMENT, and DECISION MAKING: He has no recurrent angina, with improved dyspnea. BP has been labile, on IV Nipride, with wide fluctuations. He is tolerating initiation of b-chadwick, and responded to lasix. Tn remains elevated, but there are no EKg changes. IABP position is appropriate on CXR. No complications from his IABP. I haveupdated the patient and , and discussed the status with CT surgery with CABG scheduled for tomorrow. IS THE PATIENT CRITICALLY ILL? Is there a high potential of sudden, clinically significant, or life threatening deterioration? Yes Is there a need for direct personal assessment and management to treat/prevent multiple vital organ failure/deterioration? Yes If this patient is not critically ill, the reason for continued hospitalization is NA. PATIENT IS CRITICALLY ILL WITH THESE DIAGNOSES BEING MANAGED BY Cardiology team providing critical care services ARDS PA Catheter Hyponatremia Hypoxemic Resp Failure Cardiogenic Shock Hypernatremia Pneumonia req Ventilator x Acute Myocardial Infarction Hyperkalemia Hypercarbic Resp Failure Subarachnoid Hemorrhage Acute Drug Ingestion / OD Respiratory Acidosis Traumatic Brain Injury Acute Renal Failure Acute Resp Failure Coma Acute Liver Failure Metabolic Acidosis Stupor Thrombocytopenia Hypotension, Fluids Delirium Neutropenia Hypotension, Pressors Acute Encephalopathy x Hypertensive Emergency Sepsis Ascites Req Treatment Malnutrition Septic Shock with SIRS Coagulopathy Req Treatment x IV Nipride needing a-line monitoring IABP placement Anaphylaxis Active Hemorrhage I personally performed 40 minutes of aggregate critical care time exclusive of procedures and teaching. This includes time spent during direct patient evaluation and reassessment, interpreting diagnostic tests, directing life and/or organ supporting interventions and documentation on the unit. DAPHNE SHAHID MD 07/06/2017 Philipp, Nick Patel MD - 07/06/2017 10:48 AM EST STAFF PROGRESS NOTE Critical Care Medicine Author: NICK SEGAL MD Patient seen and examined on critical care rounds. Gregory Hoang is a 72 y.o. male with the following active issues:: Active Hospital Problems Diagnosis ??? STEMI (ST elevation myocardial infarction) Resolved Hospital Problems Diagnosis Date Resolved No resolved problems to display. ASSESSMENT, MANAGEMENT, and DECISION MAKING: Critically ill with 3VDl CHF, and reduced LVEF. Mild edema pattern on CXR. Elevated LVEDP on Cath. Stabilizing for tentative CABG this week. Responding well to afterload reduction with Nipride Responding to diuresis. No current respiratory distress No evidence for RADHA Wbc 7.6; afebrile plavix yesterday; heparin drip aspirin Glycemic control. EXAM: Physical Exam Constitutional: He appears well-developed. No distress. Cardiovascular: Normal rate. Exam reveals no friction rub. Pulmonary/Chest: No stridor. No respiratory distress. He has no wheezes. Abdominal: Soft. There is no rebound. Musculoskeletal: He exhibits no edema. Skin: Skin is warm. He is not diaphoretic. No erythema. Last value Range last 24 hrs Temperature Temp: 36.7 ??C (98.1 ??F) Temp: [36.7 ??C (98.1 ??F)-37.5 ??C (99.5 ??F)] Heart Rate Heart Rate: 96 Heart Rate: [77-107] Blood Pressure BP: 163/71 BP: (116-190)/(43-105) Respiratory Rate Resp: 20 Resp: [14-23] SpO2 SpO2: 96 % SpO2: [92 %-98 %] Art BP BP (Arterial Line): 123/94 BP (Arterial Line): (92-138)/(53-101) Last Ht 07/05/17 172.7 cm (5' 8) Last Wt 07/06/17 84.8 kg (186 lb 15.2 oz) Body mass index is 28.43 kg/(m^2). IS PATIENT CRITICALLY ILL ? Is there a high potential of sudden, clinically significant, or life threatening deterioration? Yes Is there a need for direct personal assessment and management to treat/prevent multiple vital organfailure/deterioration? Yes If this patient is not critically ill, the reason for continued hospitalization is urgent CABG. PATIENT IS CRITICALLY ILL WITH THESE DIAGNOSES BEING MANAGED BY CCS TEAM: Congestive Heart Failure Systolic Acute Hypertension/Hypertensive Urgency I personally performed 35 minutes of aggregate critical care time exclusive of procedures and teaching. This includes time spent during direct patient evaluation and reassessment, interpreting diagnostic tests, directing life and/or organ supporting interventions and documentation on the unit. NICK SEGAL MD 07/06/2017 Emelia Tobar RN - 07/06/2017 8:00 AM EST Pt. Received awake on IABP pt. Denies any discomfort at this time Dr. Webber visited and stated will be back later to talk about surgery. Pt. Started crying and states hes very nervous and worriedabout the upcoming surgery. Was asking for medicine for his nerves. Vital signs stable 0930 physician rounds made and orders written. 1000 assessment unchanged pt. Resting remains anxious 1330 Dr. Webber visited and explained the surgery to patient and his consent signed. 1400 pt. Remains anxious about the surgery at bedside 1600 unchanged 1700 pt. C/o of toes cramping and becoming restless with elevation in BP call put into team and made aware. 1730 team visited on rounds and made aware of toes, BP and blood sugars orders written. Daphne Sheikh MD - 07/06/2017 5:17 AM EST Inpatient Cardiology Progress Note Patient Name: Gregory Hoang Date of Admission: 07/05/2017 ( Hospital Day 1 day ) Service: S2 ID: Gregory Hoang is a 72 y.o. male with a history of MARIA VICTORIA (on CPAP), DM2, COPD, HTN, HLD, GERD, hypothyroidism s/p thyroidectomy for thyroid cancer), and melanoma presenting with late STEMI s/p cath showing multi-vessel disease with LVEDP 38. Active Problems: Active Hospital Problems Diagnosis ??? STEMI (ST elevation myocardial infarction) Resolved Hospital Problems Diagnosis Date Resolved No resolved problems to display. 24 hr events/Subjective: - No acute events overnight - He is chest pain free and without dyspnea (was off nitro drip and nitroprusside for a short periodof time; nitroprussid restarted for BP control) - IABP pressures discordant with cuff pressures (which are high) - Trop has not peaked - Mg and K repleted - Has been subtherapeutic on heparin ROS: Denies CP, SOB, palpitations, PND, Orthopnea, dizziness/LH, LE swelling or pain, n/v, abd pain.Has a mild headache. Telemetry: Sinus with rates in 90s Medications ??? insulin lispro 2-8 Units Subcutaneous Q4H LUZ ??? aspirin 81 mg Oral Daily ??? levothyroxine 175 mcg Oral QAM ??? sodium chloride 0.9 % 5 mL Intravenous BID ??? insulin glargine 14 Units Subcutaneous Nightly ??? insulin regular human 0.5-16 Units/hr Intravenous Change bag every evening ??? atorvastatin 80 mg Oral QPM heparin (porcine) AND heparin (porcine), dextrose 50% OR glucagon (human recombinant), sodium chloride 0.9 %, lidocaine, nitroGLYcerin, iohexol, dextrose 50%, insulin regular human, potassium chloride OR potassium chloride Physical Exam: Last value Range last 24 hrs Temperature Temp: 36.7 ??C (98.1 ??F) Temp: [36.7 ??C (98.1 ??F)-37.5 ??C (99.5 ??F)] Heart Rate Heart Rate: 87 Heart Rate: [77-107] Blood Pressure BP: 158/68 BP: (116-190)/(43-105) Respiratory Rate Resp: 18 Resp: [14-23] SpO2 SpO2: 96 % SpO2: [92 %-98 %] IABP BPs: 130-140s/50s-60s On 3L O2 Intake/Output Summary (Last 24 hours) at 07/06/17 0952 Last data filed at 07/06/17 0900 Gross per 24 hour Intake 1337.05 ml Output 2905 ml Net -1567.95 ml Patient Vitals for the past 168 hrs: Weight 07/06/17 0600 84.8 kg (186 lb 15.2 oz) 07/05/17 1628 86 kg (189 lb 9.5 oz) Admit wt: 86 kg Gen: pleasant gentleman lying comfortably in bed in NAD HEENT: moist mucous membraines CV: RRR, balloon pump audible, normal S1 and S1, no murmus appreciated, JVP 2cm Resp: CTABL in anterior ballesteros Abd: +BS, soft, non-tender, non-distended Ext: warm, well-perfused , 2+ PT and DP pulses bilaterally, no edema Neuro: alert and responsive. Grossly intact. Labs Recent Labs 07/06/1721907/05/17201907/05/17 1655 WBC 7.6 10.3* 6.8 HGB 13.4* 14.1 14.0 HCT 39.7* 40.8 41.0 PLATELET 189 204 197 Recent Labs 07/06/1780907/06/1721907/05/17201907/05/17 1655 NA 141 -- 139 142 K 4.5 3.9 3.8 4.0 CL 101 -- 98 100 CO2 27 -- 27 28 BUN 16 -- 20 19 CREATININE 1.04 -- 1.12 1.04 Recent Labs 07/06/1780907/05/17201907/05/17 1655 CALCIUM 8.1* 8.1* 8.5 MAGNESIUM 0.84 0.68* 0.78 Recent Labs 07/06/1721907/05/17201907/05/17 1655 PTT 52* 32 41* Recent Labs 07/06/1710 07/06/1721907/05/172019 CK 124 129 149 TROPONINT 2.26* 2.13* 2.11* HgA1C 6.8% Triglyceride 129 HDL 32 Imaging/Studies: CXR 07/06/2017: Intra-aortic component tip appears similar. Mild interstitial edema. CXR 07/05/2017: Intra-aortic balloon pump catheter in satisfactory position. No acute cardiopulmonary process. Echo Transthoracic: The left ventricle is mildly dilated. Left ventricular wall thickness is normal. There are left ventricular segmental wall motion abnormalities present, as shown in the diagram below. Global left ventricular systolic function is severely reduced. The quantitative left ventricular ejection fraction by biplane Oneill's method is 29%. Doppler assessment is consistent with elevated left sided filling pressure. 2. Right ventricular chamber size, wall thickness, and systolic function are within normal limits. 3. The left atrium is moderately dilated. The right atrium appears normal. 4. There is no hemodynamically significant valve disease. 5. See remainder of report for additional findings. EKG 07/05/2017: Sinus tachycardia. Cannot rule out 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). T wave abnormality, consider lateral ischemia. Abnormal ECG. When compared with ECG of 05-JUL-2017 16:32, No significant change was found. Cardiac Catheterization (07/06/2017): RIGHT dominance LVEDP >35 Left main: There was mild diffuse disease of the entire vessel segment of the left main artery. The distal segment of the left main had a single discrete 40% stenosis. LAD: There was mild diffuse disease of the entire vessel segment of the left anterior descending artery (LAD). The mid segment of the LAD had a single discrete 90% stenosis. This lesion involved bifurcation. There was a 65% long segmental stenosis of the proximal segment of the first diagonal branch (D iagonal 1) of the LAD. The Diagonal 1 was large. LCx: There was mild diffuse disease of the entire vessel segment of the left circumflex artery (LCX). The mid segment of the LCX had a single discrete 50% stenosis. RCA: There was mild diffuse disease of the entire vessel segment of the right coronary artery (RCA).There were multiple discrete 60% stenoses of the mid segment of the right posterior descending branch (RPDA) of the RCA. Ramus: There was a 95% single discrete stenosis of the ostial segment of the ramus. Assessment: Gregory Hoang is a 72 y.o. male w/ a h/o MARIA VICTORIA (on CPAP), DM2, COPD, HTN, HLD, GERD, and Hyperthyroid presenting with late STEMI. Cath showing MVD (proximal LCx, Ramus, LAD) with LVEDP 38. Placed on NRB for oxygenation. CT surgery consulted for potential CABG. IABP placed tonight to preserve coronary perfusion while awaiting CABG. Will continue heparin drip and hold plavix in that setting. NTG drip started for HTN of 200s/130. Will also diurese and optimize resp status for CABG on Wednesday. Plan: #Late STEMI - IABP in place given multi-vessel disease, small arteries, and reduced LV function, heparin runningthrough - CABG planned for 07/07/2017 [] NPO at midnight 07/06/2017 - s/p plavix load, holding further doses for CABG - continue ASA - continue statin - NRB for oxygen - on Nitroprusside drip for HTN control, aim for SBP<130 [] IABP pressures and cuff pressures not correlating - restart metoprolol 12.5mg BID as tolerated - continue heparin drip - Lasix 20mg IV x1 [] Goal negative 1-2L daily ?? #DM2 - insulin drip as BG up to 300s and pending CABG - hold metformin - f/u [facility] ?? #Home Meds - continue levothyroxine 175mcg - CPAP at night #Restless legs - On home magnesium, repleting here as needed #Anxiety - Ativan 0.5mg q6h as needed ?? # Routine - DVT PPx: heparin drip - GI PPx: none - Diet: NPO - Lines/Tubes: PIV x2, IABP, ocasio - Dispo: [facility] - code status: Full Code Dinorah Ramírez MD, PGY-1 Cardiology S1 (pgr. [id number]) . CARDIOLOGY ATTENDING NOTE Patient: Gregory Hoang Date of Service: 07/06/2017 Date of Admission: 07/05/2017 Length of Stay Hospital Day 1 day Please see the above note by Dr Ramírez for details. I have interviewed and examined the patient independently and I concur with the assessment and plan. The case was discussed on cardiology rounds and we reviewed the plan of care with the team and patient. See my separate note for details. DAPHNE SHAHID MD Pager [phone] Jet Mckenna MD - 07/05/2017 6:48 PM EST Preliminary Cardiac Catheterization Procedure Note: Procedure(s) performed: Left heart cath, IABP insertion Access: Right MEDICAL ASSISTANT PRN-->8fr IABP A time-out was conducted prior to the start of the procedure to verify the correct patient and procedure, procedure location, and all relevant critical information. Preliminary findings: 3vd (mid LAD 90%, diag 1 65% diffuse, ostial 90% LCx, ostial ramus 95%, mid rPDA 70 diffuse) EF by echo ~25% LVEDP 38 8fr IABP inserted. IV nitro and IV nipride started for HTN CT surgery (Dr Webber) called to assess. The patient tolerated the procedures smoothly and was transferred from the cardiac catheterization lab to the next level of care in condition. No evident early complications. Full report to follow. Jet Mckenna MD Yanet Sutton RN - 07/05/2017 6:21 PM EST Pt arrived to unit @ 1630, labs drawn, EKG obtained. Pt denies CP, endorses FOURNIER. No SOB at rest at time of admission. Arrived from EMS on 6L NC, titrated to 2L NC with sats 98-100. BP elevated on admission, 5mg IV metop given with effect. Heparin gtt maintained. 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 documented in this encounter H&P Notes Daphne Shahid MD - 07/05/2017 6:08 PM EST CARDIOLOGY HISTORY & PHYSICAL EXAM Date of Admission: 07/05/2017 ( Hospital Day 0 days ) Responsible Attending: Daphne Shahid MD PCP: Lovely Vicente MD PCP#: [phone] Patient Active Problem List Diagnosis Code ??? Melanoma C43.9 ??? Seborrheic psoriasis- scalp and ingtergluteal area L40.8 ??? Skin lesion of chest wall L98.9 ??? Goiter E04.9 ??? MARIA VICTORIA (obstructive sleep apnea) on CPAP G47.33 ??? Urinary retention R33.9 ??? Atypical nevus of abdominal wall D22.5 ??? BPH (benign prostatic hyperplasia) N40.0 ??? STEMI (ST elevation myocardial infarction) I21.3 History of Present Illness: Gregory Hoang is a 72 y.o. male w/ a h/o MARIA VICTORIA (on CPAP), DM2, COPD, HTN, HLD, GERD, and Hyperthyroid presenting with late STEMI. Per chart review, patient was having sob for the past 3 weeks, all on exertion. On Wednesday had somesob at rest with diaphoresis, lasted about 3 hours and then resolved. SOB has been constant since then Denies any chest pain. Went to PCP office and was told to go to the ED afterwards given this concern for unstable angina. Trop at OSH 13 with EKG showing Q waves and residual VINEET. Given ASA, plavix load with heparin drip and transferred to [facility]. While there, continued sob, question of chest pain. Stat TTE showing WMA diffusely and EF around 20%. No significant valvular disease. 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 [facility] Labs: INR 1.0 WBC 5.88 Hgb 12.9 Plt 188 Na 139 K 4.3 BUN 21 Cr 1.36 Mg 1.7 Trop I 13.09 EKG: VINEET 1mm in V1-2 and Q waves in V1-3 Interventions: ASA 162mg, plavix 300mg, heparin drip Medications: reviewed in MAR Labs: Recent Results (from the past 24 hour(s)) POCT Glucose Result Value Ref Range POC Glucose 208 (H) 65 - 199 mg/dL APTT Result Value Ref Range PTT 41 (H) 25 - 35 sec Basic Metabolic Panel (non-fasting) Result Value Ref Range Glucose Lvl 230 (H) 65 - 199 mg/dL BUN 19 10 - 20 mg/dL Creatinine 1.04 0.80 - 1.50 mg/dL Sodium 142 135 - 145 mmol/L Potassium 4.0 3.5 - 5.0 mmol/L Chloride 100 98 - 107 mmol/L CO2 28 22 - 31 mmol/L Anion Gap 14 5 - 15 mmol/L Calcium 8.5 8.5 - 10.5 mg/dL Estimated GFR >60 >=60 Magnesium Result Value Ref Range Magnesium 0.78 0.69 - 1.07 mmol/L pro-Brain Natriuretic Peptide Result Value Ref Range ProBNP 1598 (H) <=125 pg/mL Cardiac Enzymes (LEB/CGP) Result Value Ref Range Troponin-T 1.69 (H) 0.00 - 0.00 ng/mL CK, Total 191 0 - 200 unit/L Hemogram Result Value Ref Range WBC 6.8 4.0 - 9.5 x10(3)/mcL RBC 4.67 4.58 - 5.54 x10(6)/mcL Hemoglobin 14.0 13.7 - 16.5 gm/dL Hematocrit 41.0 40.5 - 48.5 % MCV 87.8 82.9 - 93.1 fL MCH 30.0 27.5 - 32.1 pg MCHC 34.1 32.0 - 35.7 gm/dL Platelets 197 145 - 357 x10(3)/mcL RDWSD 46.4 (H) 36.0 - 45.0 fL RDWCV 14.5 (H) 11.4 - 13.8 % MPV 9.7 7.6 - 12.9 fL nRBC % Auto 0.0 % nRBC Abs Auto 0.000 0.000 - 0.000 x10(3)/mcL Differential, Automated Result Value Ref Range Neutrophils % 77.0 % Neutr Abs (ANC) 5.26 1.70 - 6.10 x10(3)/mcL Lymphocytes % 13.3 % Lymphocytes Abs 0.9 0.9 - 3.2 x10(3)/mcL Monocytes % 8.2 % Monocyte Abs 0.6 0.3 - 0.9 x10(3)/mcL Eosinophils % 0.7 % Eosinophils Abs 0.0 0.0 - 0.4 x10(3)/mcL Basophils % 0.4 % Basophils Abs 0.0 0.0 - 0.1 x10(3)/mcL Immature Gran % 0.40 % Melisa Gran Abs 0.03 0.00 - 0.04 x10(3)/mcL POCT Glucose Result Value Ref Range POC Glucose 296 (H) 65 - 199 mg/dL Physical Exam: Vitals: Most Recent Vitals: 07/05/17 1706 BP: (!) 163/96 Pulse: 90 Resp: 22 Temp: SpO2: 98% General: alert, conversant male on NC, comfortable HEENT: dry MM, OP clear CV: mildly tachycardiac, no m/g/r, normal S1/2 Lungs: crackles to anterior exam (IABP in place) Abd: soft, NT, ND, normal BS Ext: no clubbing, cyanosis, or edema Assessment: Gregory Hoang is a 72 y.o. male w/ a h/o MARIA VICTORIA (on CPAP), DM2, COPD, HTN, HLD, GERD, and Hyperthyroid presenting with late STEMI. Cath showing MVD (proximal LCx, Ramus, LAD) with LVEDP 38. Placed on NRB for oxygenation. CT surgery consulted for potential CABG. IABP placed tonight to preserve coronary perfusion while awaiting CABG. Will continue heparin drip and hold plavix in that setting. NTG drip started for HTN of 200s/130. Will also diurese and optimize resp status for CABG on Wednesday. 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, redose to aim net neg 1L by morning - NPO at midnight on 07/06 for CABG - restart metoprolol 12.5mg q6h as tolerated - continue heparin drip - titrate nitroprusside and NTG drip to SBP<140 on IABP pressures, cuff pressures not correlating - ocasio in place #DM2 - continue glargine 14 units (28 at home) - insulin drip as BG 300s currently, will taper off in the next few hours - ISS - hold metformin - f/u [facility] #Home Meds - continue levothyroxine 175mcg - CPAP at night # Routine - DVT PPx: heparin drip - Diet: NPO - Code Status: FULL - Dispo: [facility] Cedric Bey MD Internal Medicine, PGY-2 Cardiology S1, Team Pager # [phone] CARDIOLOGY ATTENDING NOTE Patient: Gregory Hoang Date of Service: 07/06/2017 Date of Admission: 07/05/2017 Length of Stay Hospital Day 1 days Please see the above note by Dr Bey for details. I have interviewed and examined the patient independently and I concur with the assessment and plan. The case was discussed on cardiology rounds andwe reviewed the plan of care with the team and patient. I have discussed the case with the interventional cardiology, CT surgery, and I have reviewed the angiograms. The patient has a high risk presentation, high grade multivessel CAD, marked elevated LVEDP and LV dysfunction, and accelerated hypertension. He does have diffuse small vessel CAD, not particularly amenable for PCI. DAPHNE SHAHID MD Pager [phone] documented in this encounter Miscellaneous Notes Consult Note - Daphne Shahid MD - 07/14/2017 11:46 AM EST Heart Failure Service Inpatient Consult Note Gregory Hoang Date of : 1945 Age: 72 y.o. Today's date: 07/14/17 PCP: Lovely Vicente MD NETWORK APPLICATIONS SPECIALIST: None Place of Service: [facility] Reason for Consult: Dr. Webber has requested consultation regarding systolic heart failure management. HPI: Mr. Hoang is a 72 year-old man with history of hypertension, hyperlipidemia, IDDM2, MARIA VICTORIA on CPAP who was admitted on 07/05/17 with late-presenting anterior STEMI in the setting of 3 weeks of worseningdyspnea on exertion. He initially presented to outside hospital where labs significant for Trop-I >13. He was taken to cath emergently, which showed 90% LAD slesion, 65% D1 lesion, 50% mid LCx lesion, multiple discrete 60% RCA lesions, multiple discrete 60% RPDA lesions, and a 95% ramus lesion. LVEDP was 38. IABP was placed. He was hypertensive and was started on nitroprusside and diuresed with IVlasix. TTE revealed EF 29% with global hypokinesis/akinesis. CV surgery consulted and the patient underwent 3v CABG on 07/07 (THOMPSON-LAD, SVG->OM1->D1). Post-operative course was complicated by atrial fibrillation with RVR, reverted back to NSR with amiodarone drip. He has been initiated on Coumadin. Currently, Mr. Hoang feels improved compared to admission; denies any chest pain. Dyspnea on exertion has improved. Has been able to walk around, including up the stairs, without significant dyspnea.Continues to have lower extremity edema, improved in the past few days, per patient. Cardiac meds: ASA 81 mg qd Lipitor 40 mg qd Lasix 40 mg qd Amiodarone 400 mg qd Metoprolol tartrate 25 mg BID Lisinopril 10 mg qd Warfarin Patient Active Problem List Diagnosis ??? STEMI (ST elevation myocardial infarction) ??? ASHD (arteriosclerotic heart disease) NSTEMI 3VCAD Ischemic Cardiomyopathy Elevated LVEDP ??? Cardiomyopathy, ischemic LVEF=29% ??? Hypertension, accelerated, with systolic CHF, 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 Elevated HTN, poorly responsive to NTG Nipride initiated ??? BPH (benign prostatic hyperplasia) ??? Atypical nevus of abdominal wall ??? Urinary retention ??? MARIA VICTORIA (obstructive sleep apnea) on CPAP ??? Goiter ??? Seborrheic psoriasis- scalp and ingtergluteal area ??? Skin lesion of chest wall ??? Melanoma Past Surgical History: Procedure Laterality Date ??? PRG SOMATOSENSORY TEST, ANY/ALL PER. NERVES, TRUNK OR HEAD 03/28/2013 FACIAL NERVE MONITORING, SETUP performed by Manny Mcknight MD at [facility] MAIN OR ??? PRO CABG, ARTERIAL, SINGLE N/A 07/07/2017 @CABG, USING ARTERIAL GRAFT;SINGLE ARTERIAL GRAFT (WRVU 33.75) performed by Yuan Webber MD at [facility] MAIN OR ??? PRO CABG, ARTERY-VEIN, TWO N/A 07/07/2017 @CABG, TWO VENOUS GRAFTS & ARTERIAL GRAFT (WRVU 7.93) performed by Yuan Webber MD at [facility] MAIN OR ??? PRO COLONOSCOPY, REMV LESN, SNARE 01/16/2014 COLONOSCOPY, POLYPECTOMY, REMOVAL LESION BY SNARE performed by Nohemi Jaimes MD at [facility] ENDOSCOPY ??? PRO ENDOSCOPY W/VIDEO-ASST VEIN HARVEST, CABG Right 07/07/2017 ENDOSCOPIC HARVEST VEIN(S) FOR CABG (WRVU 0.31) performed by Yuan Webber MD at [facility] MAIN OR ??? PRO THYROIDECTOMY 03/28/2013 THYROIDECTOMY, TOTAL OR COMPLETE performed by Manny Mcknight MD at [facility] MAIN OR Outpt Meds: Current Outpatient Prescriptions Medication Sig Dispense Refill ??? acetaminophen (TYLENOL) 500 mg Tablet Take 2 tablets by mouth every 6 hours as needed for Pain. 30 tablet 1 ??? [START ON 07/15/2017] AMIOdarone (PACERONE) 400 mg Tablet Take 1 tablet by mouth daily. 30 tablet 0 ??? atorvastatin (LIPITOR) 40 mg Tablet Take 1 tablet by mouth every evening. 90 tablet 3 ??? [START ON 07/20/2017] furosemide (LASIX) 20 mg Tablet Take 1 tablet by mouth daily. 30 tablet 0 ??? [START ON 07/15/2017] furosemide (LASIX) 40 mg Tablet Take 1 tablet by mouth daily for 4 days. 5tablet 0 ??? lisinopril (PRINIVIL;ZESTRIL) 20 mg Tablet Take 0.5 tablets by mouth daily. 90 tablet 3 ??? meTOPROLOL tartrate (LOPRESSOR) 25 mg Tablet Take 1 tablet by mouth 2 times daily. 180 tablet 3 ??? [START ON 07/15/2017] potassium chloride (K-DUR/KLOR-CON) 10 mEq Tablet Sustained Release Take 1tablet by mouth daily. 30 tablet 0 ??? warfarin (COUMADIN) 2.5 mg Tablet Take 1 tablet by mouth once for 1 dose. Starting tomorrow, alldosing per Dr Vicente 60 tablet 1 ??? cephalexin (KEFLEX) 500 mg Capsule Take 1 capsule by mouth 4 times daily. 20 capsule 0 ??? insulin lispro (HUMALOG KWIKPEN) Insulin Pen Inject 15-20 Units subcutaneously 3 times daily (with meals). 10 mL 1 ??? ACCU-CHEK ELIF PLUS TEST STRP Strip 2-3 times daily 100 each 1 ??? [START ON 07/15/2017] metFORMIN (GLUCOPHAGE) 850 mg Tablet Take 1 tablet by mouth 2 times daily (with meals). 60 tablet 12 ??? LANTUS SOLOSTAR pen Inject 30 Units subcutaneously nightly. 15 mL 1 ??? BD INSULIN PEN NEEDLE UF MINI 31 gauge x 3/16 Needle 1 each by Other route 4 times daily. 0 Current inpatient medications: Scheduled Meds: ??? warfarin 2.5 mg Oral Once ??? [START ON 07/20/2017] furosemide 20 mg Oral Daily ??? AMIOdarone 400 mg Oral Daily ??? insulin lispro 0-10 Units Subcutaneous TID WC ??? insulin glargine 50 Units Subcutaneous Q24H ??? meTOPROLOL 25 mg Oral 2 times per day ??? lisinopril 10 mg Oral Daily ??? furosemide 40 mg Oral Daily ??? potassium chloride 20 mEq Oral Daily ??? ceFAZolin 2 g Intravenous Q8H ??? warfarin (COUMADIN) daily order reminder Oral Q24H ??? sodium chloride 0.9 % 5 mL Intravenous Q8H ??? polyethylene glycol (MIRALAX)oral powder 17 g Oral Daily ??? insulin lispro 0-12 Units Subcutaneous Q4H LUZ ??? atorvastatin 40 mg Oral QPM ??? pantoprazole 40 mg Oral Daily Or ??? pantoprazole 40 mg Intravenous Daily ??? aspirin 81 mg Oral Daily Or ??? aspirin 300 mg Rectal Daily ??? senna-docusate 2 tablet Oral Daily ??? magnesium hydroxide 10 mL Oral Daily ??? levothyroxine 175 mcg Oral QAM Continuous Infusions: PRN Meds:.meTOPROLOL, oxyCODONE, acetaminophen, dextrose 50%, ondansetron, bisacodyl Social History Social History Narrative ROS: General: No recent fevers, chills, fatigue, appetite or weight change HEENT: No recent vision or hearing changes. No tinnitus or headaches. No congestion or dysphagia. CVS: See above. No orthopnea, PND. Pulm: No cough, wheeze. Sleeps on 2 pillows. No hemoptysis GI: No nausea, vomiting, constipation or diarrhea. No rectal bleeding. : No dysuria, frequency or hematuria. Musculoskeletal: No arthritis or joint pain. Ambulates independently. Endocrine: Denies cold intolerance, weight changes or history of goiter Neuro: No dizziness, lightheadedness, changes in memory, syncope, numbness or tingling. Psych: No depression, anxiety or changes in mood. Not currently undergoing psychiatric treatment. Physical Exam: Blood pressure 135/57, pulse 93, temperature 37.3 ??C (99.1 ??F), temperature source Oral, resp. rate 16, height 172.7 cm (5' 8), weight 90 kg (198 lb 6.6 oz), SpO2 96 %. Patient Vitals for the past 168 hrs: Weight 07/14/17 0508 90 kg (198 lb 6.6 oz) 07/13/17 0402 91.2 kg (201 lb 1 oz) 07/12/17 0544 92.7 kg (204 lb 5.9 oz) 07/11/17 0300 91.5 kg (201 lb 11.5 oz) 07/10/17 0435 88.8 kg (195 lb 12.3 oz) 07/08/17 0700 88.2 kg (194 lb 7.1 oz) I/O last 3 completed shifts: In: 1192 [P.O.:1010; I.V.:71; IV Piggyback:111] Out: 3250 [Urine:3250] I/O this shift: In: 120 [P.O.:120] Out: - Alert, cooperative, oriented X3. Skin: Warm & dry. Head/Eyes: Symmetrical. Normal sclerae. ENT: No thyromegaly. Neck Supple without masses. No bruits. JVD 8 cm H2O Cardiac: S1 S2 , no murmurs appreciated Lungs: Bibasilar crackles Abd: Symmetrical, soft & nontender. Extremities: Pulses present bilaterally. 1+ edema to knees bilaterally. Neurologic: A & O X 3. 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 The patient has been extubated, left chest tube removed, and Biscoe-Suzi catheter removed since the 07/07/2017 study. Atelectasis at both lung bases, greater on the left with a small effusion on that side. Stable mild cardiomegaly. No pulmonary edema. No pneumothorax. IMPRESSION Bibasilar atelectasis, greater on the left with a small effusion on that side. Echo 07/05/17: 1. The left ventricle is mildly dilated. Left ventricular wall thickness is normal. There are left ventricular segmental wall motion abnormalities present, as shown in the diagram below. Global left ventricular systolic function is severely reduced. The quantitative left ventricular ejection fraction by biplane Oneill's method is 29%. Doppler assessment is consistent with elevated left sided filling pressure. 2. Right ventricular chamber size, wall thickness, and systolic function are within normal limits. 3. The left atrium is moderately dilated. The right atrium appears normal. 4. There is no hemodynamically significant valve disease. 5. See remainder of report for additional findings. Cath07/05/17: Hemodynamics: Left Heart Pressures Resting: Syst Diast EDP a v m Ao 190 106 141 ? Post Contrast: Syst Diast EDP a v m Ao 189 101 LV 185 38 ? Coronary Angiography: Dominance: Right ? Left Main There was mild diffuse disease of the entire vessel segment of the left main artery. The distal segment of the left main had a single discrete 40% stenosis. ? Left Anterior Descending There was mild diffuse disease of the entire vessel segment of the left anterior descending artery (LAD). The mid segment of the LAD had a single discrete 90% stenosis. This lesion involved bifurcation. ? There was a 65% long segmental stenosis of the proximal segment of the first diagonal branch (Diagonal 1) of the LAD. The Diagonal 1 was large. ? Left Circumflex There was mild diffuse disease of the entire vessel segment of the left circumflex artery (LCX). The mid segment of the LCX had a single discrete 50% stenosis. ? Right Coronary Artery There was mild diffuse disease of the entire vessel segment of the right coronary artery (RCA). ? There were multiple discrete 60% stenoses of the mid segment of the right posterior descending branch (RPDA) of the RCA. ? Ramus There was a 95% single discrete stenosis of the ostial segment of the ramus. Laboratory Data: Recent Labs 07/10/17 0428 07/09/17 0230 07/08/17 0400 WBC 12.2* 12.5* 18.8* HGB 9.8* 10.1* 11.9* HCT 30.0* 30.3* 35.9* PLATELET 135* 127* 232 Recent Labs 07/14/17 0446 07/13/17 0426 07/12/17 0411 INR 2.4* 1.8* 1.2* Recent Labs 07/14/17 0446 07/13/17 0426 07/12/17 0411 07/10/17 0428 NA -- 143 145 -- 143 K 4.3 3.7 Not Perf 3.8 < > 4.6 CL -- 104 106 -- 107 CO2 -- 26 Not Perf -- 21* BUN -- 25* 31* -- 20 CREATININE -- 1.19 1.23 -- 1.19 < > = values in this interval not displayed. No results for input(s): AST, ALT, ALKPHOS, BILITOT, BILIDIR in the last 168 hours. Recent Labs 07/13/17 0426 07/12/17 0411 07/10/17 0428 CALCIUM 7.7* 8.1* 7.4* Recent Labs 07/08/17 0400 CK 413* TROPONINT 1.88* No results for input(s): TSH in the last 7068 hours. Recent Labs 07/06/17 0220 HA1C 6.8* Lab Results Component Value Date CHLPL 150 07/06/2017 HDL 32 (L) 07/06/2017 CHOLHDL 4.7 07/06/2017 TRIG 129 07/06/2017 LDLCHOL 92 07/06/2017 Impression Mr. Hoang is a 72 year-old man with history of hypertension, hyperlipidemia, IDDM2, MARIA VICTORIA on CPAP who was admitted on 07/05/17 with late-presenting anterior STEMI s/p 3v CABG. Heart Failure team is consulted regarding further management of ischemic cardiomyopathy. He is currently on metoprolol tartrate with HR in 70s-90s and BP in 130s-150 systolics. He is also on lisinopril 10 mg daily. Would be reasonable to up-titrate these at the next cardiology visit (he has been scheduled in heart failure clinic next week) given that he will be discharging to home today. Suggest: At next heart failure visit, would recommend: - Switching metoprolol tartrate to metoprolol succinate - Increasing lisinopril - Consider initiating spironolactone The pt was discussed with Zehra. Jaden Kelley MD Emission Technician Pager [phone] CARDIOLOGY ATTENDING NOTE Patient: Gregory Hoang Date of Service: 07/14/2017 Date of Admission: 07/05/2017 Length of Stay Hospital Day 7days Please see the above note by Dr Kelley for details. I have interviewed and examined the patient independently and I concur with the assessment and plan. The case was discussed on cardiology rounds and we reviewed the plan of care with the team and patient. The patient is known to me from admission when he presented with acute coronary syndrome, probable late myocardial infarction, with multivessel CAD, with small caliber vessels, LV systolic dysfunction, and a markedly elevated blood pressure and LVEDP. The patient was placed on IABP support pending revascularization by CT surgery. Right coronary artery was not amenable for revascularization. The patient appeared to be doing well post operatively.We are asked to engage for follow-up care. The patient had been discharged prior to my bedside evaluation, but I did discuss the case with Dr. Kelley and the CT surgery service and we have made arrangements for follow-up in the heart failure clinic. DAPHNE SHAHID MD Pager [phone] Plan of Care - Alden Chavarria, COREMAKER HELPER - 07/14/2017 11:35 AM EST Problem: Patient Care Overview Goal: Plan of Care Review Outcome: Ongoing (Interventions Implemented as Appropriate) 07/13/17 0502 07/14/17 1025 Coping/Psychosocial Plan Of Care Reviewed With -- patient Plan of Care Review Progress progress toward functional goals as expected -- Physical Therapy Note Treatment Number: 2 Pertinent History of Current Problem: Pt had recent SOB from 3 weeks ago, found to have a STEMI. cath revealed 3VD, pt underwent CABG x3 07/08/. Assessment: Pt seen for skilled PT treatment, including bed mobility, transfer training and gait training. Pt demonstrated good overall mobility with use of FWW for support during gait. Stairs performed to simulate home setting without concern or change in vitals. Patient has met all PT goals at this time and is safe for D/C to home when medically ready with assist from his . Please see the Rehab Evaluation Summaries section for detailed objective data and specifics of today???s session. Precautions/Restrictions: sternal, fall Vital Signs During Session: Heart Rate: 93 SpO2: 96 % O2 Device: None (Room air) Staff Mobility Recommendations: Ambulate with FWW 3-4x/day Anticipated Equipment Needs at Discharge: front wheeled walker Anticipated Discharge Disposition: home with assist Alden Chavarria, COREMAKER HELPER Pager: [phone] Inpatient Physical Therapy Problem: Acute Rehab Services Goal & Intervention Plan Goal: Bed Mobility Goal Stand Alone Therapy Goal Outcome: Outcome (s) achieved Date Met: 07/14/17 07/12/17 1225 07/14/17 1132 Bed Mobility Goal Bed Mobility Goal, Date Established 07/12/17 -- Bed Mobility Goal, Time to Achieve 2 - 3 days -- Bed Mobility Goal, Activity Type supine to sit/sit to supine -- Bed Mobility Goal, Ford Level supervision required -- Bed Mobility Goal, Additional Goal adheres to psternal precautions for transfer -- Bed Mobility Goal, Outcome Achieved -- goal met Goal: Gait Training Goal Stand Alone Therapy Goal Outcome: Outcome (s) achieved Date Met: 07/14/17 07/12/17 1225 07/14/17 1132 Gait Training Goal Gait Training Goal, Date Established 07/12/17 -- Gait Training Goal, Time to Achieve 2 - 3 days -- Gait Training Goal, Ford Level supervision required -- Gait Training Goal, Assist Device walker, rolling (or least restrictive device) -- Gait Training Goal, Distance to Achieve ascend and descends 5 steps withrail and supervision -- Gait Training Goal, Outcome -- goal met Goal: Goal Transfer Training Stand Alone Therapy Goal Outcome: Ongoing (Interventions Implemented as Appropriate) 07/12/17 1225 07/14/17 1132 Goal Transfer Training Transfer Training Goal, Date Established 07/12/17 -- Transfer Training Goal, Time to Achieve 2 - 3 days -- Transfer Training Goal, Activity Type lwn-wp-tnffa/oftyu-tf-zuv;dpa-vw-cjqmc/gjwju-ws-nbx;toilet -- Transfer Train Goal, Ford Level supervision required -- Transfer Training Goal, Additional Goal adheres to sternal precautions during transfer -- Transfer Training Goal, Outcome -- goal met Plan of Care - Denice Jacobson RN - 07/14/2017 4:55 AM EST Problem: Patient Care Overview Goal: Plan of Care Review Outcome: Ongoing (Interventions Implemented as Appropriate) 07/13/17 0502 07/13/17 1942 Coping/Psychosocial Plan Of Care Reviewed With -- patient Plan of Care Review Progress progress toward functional goals as expected -- OUTCOME EVALUATION NOTE: OUTCOME SUMMARY: NSR on tele w/ rates 67-92. VSS. A+O. Pt denies all pain and SOB. Bilateral UE elevated with heat application @ infiltrate sites (not as hard to touch and redness is decreasing in size), pt states thatthe infiltrate sites continue to feel better. MSI and R leg harvest site dressings removed @0430, nodrainage noted; cleansed with chlorhexidine and redressed. PLAN MOVING FORWARD: D/c today? INDIVIDUALIZED FALL PREVENTION INTERVENTIONS: Patient-specific fall risk factors per assessment: [current deficits]: Recent CT surgery, generalized weakness, telemetry Assistance [level of assistance required for transfers and ambulation]: SBA w/ walker Supervision [direct monitoring required during toileting and ADLs]: SBA, telemetry and continuous pulse oximetry Surveillance [continuous indirect monitoring]: Purposeful hourly rounding, call cabello within reach Patient-specific fall prevention interventions for sensory deficits provided, if applicable: [X] N/A CPG GOAL OUTCOME EVALUATION: Ongoing Plan of Care - Em Jones RN - 07/13/2017 6:31 PM EST Problem: Cardiac Surgery (Adult) Goal: Signs and Symptoms of Listed Potential Problems Will be Absent, Minimized or Managed (Cardiac Surgery) Signs and symptoms of listed potential problems will be absent, minimized or managed by discharge/transition of care (reference Cardiac Surgery (Adult) CPG). Outcome: Ongoing (Interventions Implemented as Appropriate) 07/13/17 1811 Cardiac Surgery Problems Assessed (Cardiac Surgery) all OUTCOME EVALUATION NOTE: OUTCOME SUMMARY: Patient A&OX3. OOB X1 assist with walker. Needing frequent reminders re: sternal precautions. Ambulating around unit X1-2 loops each time, tolerates well. Denies CP, pressure, SOB. MSI dressing with small drainage from distal portion of MSI (not chest tube site). Right leg draining small amts, well approximated. Both sites Cleansed with chlorhex, gauze applied. Bilateral IV amio infiltrates (see IV team documentation) Poor appetite this shift, encouraged to bring food from home if patient wishes. reports feeling that the room is dirty, no house keeping present for 2 days per family. P 3 Armament/Ordnance Ima Technician noted of frustrations, house keeping sent to room. Patient offered showered twice, refused. at bedside, frustrated that shower not complete, informed that patient had refused several times. requesting to see ADULT SCHOOL TEACHER, paged sent to Martha, will come to bedside (middle of consult). not willing to wait, Martha notified that family had gone home. Encouraged to come for morning rounds a t 8am. Diabetes team at bedside - insulin adjustments made. Call cabello in reach. Continue to monitor. PLAN MOVING FORWARD: Ambulate, dressing changes BID, Please change drsg at 4am per Martha ADULT SCHOOL TEACHER request. INDIVIDUALIZED FALL PREVENTION INTERVENTIONS: Patient-specific fall risk factors per assessment: [current deficits]: Medications, deconditioned Assistance [level of assistance required for transfers and ambulation]: X1 walker Supervision [direct monitoring required during toileting and ADLs]: Tele, nurses station Surveillance [continuous indirect monitoring]: hourly rounding Patient-specific fall prevention interventions for sensory deficits provided, if applicable: CPG GOAL OUTCOME EVALUATION: Plan of Care - Ale Rangel RN - 07/13/2017 5:16 AM EST Problem: Patient Care Overview Goal: Plan of Care Review Outcome: Ongoing (Interventions Implemented as Appropriate) 07/12/17209907/13/17 0502 Coping/Psychosocial Plan Of Care Reviewed With patient -- Plan of Care Review Progress -- progress toward functional goals as expected OUTCOME EVALUATION NOTE: OUTCOME SUMMARY: Pt slept throughout the shift between cares.Pt walked around unit at beginning of shift, after the walk his sternal incision cleaned and redressed. Golf ball sized moist drainage present on old dressing. New dressing c/d/i until about 0400, drainage visible, dressing left on for CT team to observe. Ptblood glucose levels on the lower side, 60ml of Rush juice given after a FS of 80. IV in left arm removed when pt reported pain with flushing, vascular paged and new IV placed in Left forearm. Pt hadno bursts of Afib throughout shift, Occ. PACs and PVCs pesent with HR 70-85. Will continue to monitor. 0630: Right PIV, with amnio running, on assessment, site hard, pinkish with no complaints of pain. Amnio drip moved to patent, Left PIV, IV team notified, and arrived around 0645. Vascular access nursereported Left IV also infiltrated, sites assessed, IVs removed and new IVs placed. PLAN MOVING FORWARD: Increase metoprolol dose, wean off amnio gtt. INDIVIDUALIZED FALL PREVENTION INTERVENTIONS: Patient-specific fall risk factors per assessment: [current deficits]: Weakness, sternal precautions, unfamiliar environment, telemetry leads, Running IVs. Assistance [level of assistance required for transfers and ambulation]: Assist 1 Supervision [direct monitoring required during toileting and ADLs]: SBA Surveillance [continuous indirect monitoring]: Telemetry, pulse oximetry Patient-specific fall prevention interventions for sensory deficits provided, if applicable: [X] Yes CPG GOAL OUTCOME EVALUATION: Ongoing Goal: Fall Prevention-Safe Patient Handling 07/12/17 0612 07/12/172099 Daily Care Interventions Self-Care Promotion independence encouraged;BADL personal objects within reach;BADL personal routines maintained -- Activity and Safety Assistive Device Front wheel walker -- Musculoskeletal Interventions Muscle Strengthening activity/mobility promoted;mobility in bed promoted -- Mark Fall Risk History of Falling -- 0 Secondary Diagnosis -- 15 Ambulatory Aids -- 15 Intravenous Therapy/Heparin/Saline Lock -- 20 Gait/Transferring -- 10 Mental Status -- 0 Score -- 60 OTHER Mark Fall Risk -- High Restraint Interventions Safety Promotion/Fall Prevention -- activity supervised;fall prevention program maintained;nonskid shoes/slippers when out of bed;safety round/check completed Positioning Body Position -- up in chair Goal: Infection Control 07/12/17 2100 Safety Interventions Isolation Precautions standard precautions maintained Infection Prevention rest/sleep promoted;single patient room provided Coping Strategies Supportive Measures active listening utilized;self-responsibility promoted;verbalization of feelingsencouraged;self-care encouraged Goal: Discharge Needs Assessment 07/10/17 2100 07/13/17 0502 Discharge Needs Assessment Concerns To Be Addressed no discharge needs identified -- Readmission Within The Last 30 Days no previous admission in last 30 days -- Equipment Needed After Discharge none (unknown at this time) -- Discharge Disposition -- still a patient Activity/Self Care Review of Systems Equipment Currently Used at Home none -- Living Environment Transportation Available family or friend will provide;car -- Goal: Interdisciplinary Rounds/Family Conf 07/13/17 0502 Interdisciplinary Rounds/Family Conf Participants case coordinator;dietitian/nutrition services;nursing;occupational therapy;patient;pharmacy;physical therapy;physician Plan of Care - More Luther RN - 07/12/2017 4:50 PM EST Problem: Patient Care Overview Goal: Plan of Care Review OUTCOME EVALUATION NOTE: OUTCOME SUMMARY: Pt is A&Ox4. Pt has been up to walk x 3 around the unit with walker and stand by assist denies pain with activity and at rest. Pt noted to have runs of Afib with heart rates in the 120-130 however covered back to NSR independently. There was increased runs of Afib when pt was approaching time for metoprolol. Team notified no new orders. will continue to monitor PLAN MOVING FORWARD: Continue to monitor incision on chest for drainage Continue to monitor HR Continue to monitor BG INDIVIDUALIZED FALL PREVENTION INTERVENTIONS: Patient-specific fall risk factors per assessment: [current deficits]: weakness Assistance [level of assistance required for transfers and ambulation]: 1 person assist with walker Supervision [direct monitoring required during toileting and ADLs]: VAMSI BONNER Surveillance [continuous indirect monitoring]: Barrett Monitor CPG GOAL OUTCOME EVALUATION: Goal: Fall Prevention-Safe Patient Handling 07/12/17 0612 07/12/17 0800 07/12/17 1600 Daily Care Interventions Self-Care Promotion independence encouraged;BADL personal objects within reach;BADL personal routines maintained -- -- Activity and Safety Assistive Device Front wheel walker -- -- Musculoskeletal Interventions Muscle Strengthening activity/mobility promoted;mobility in bed promoted -- -- Mark Fall Risk History of Falling -- 0 -- Secondary Diagnosis -- 15 -- Ambulatory Aids -- 15 -- Intravenous Therapy/Heparin/Saline Lock -- 20 -- Gait/Transferring -- 10 -- Mental Status -- 0 -- Score -- 60 -- OTHER Mark Fall Risk -- High -- Restraint Interventions Safety Promotion/Fall Prevention -- -- safety round/check completed Positioning Body Position -- -- up in chair Goal: Infection Control 07/11/17199907/12/17 0800 Safety Interventions Isolation Precautions standard precautions maintained -- Infection Prevention -- environmental surveillance performed Coping Strategies Supportive Measures -- active listening utilized Problem: Cardiac Surgery (Adult) Goal: Signs and Symptoms of Listed Potential Problems Will be Absent, Minimized or Managed (Cardiac Surgery) Signs and symptoms of listed potential problems will be absent, minimized or managed by discharge/transition of care (reference Cardiac Surgery (Adult) CPG). 07/12/17 1645 Cardiac Surgery Problems Assessed (Cardiac Surgery) all Problems Present (Cardiac Surgery) dysrhythmia/arrhythmia Problem: Diabetes, Type 2 (Adult) Goal: Signs and Symptoms of Listed Potential Problems Will be Absent, Minimized or Managed (Diabetes, Type 2) Signs and symptoms of listed potential problems will be absent, minimized or managed by discharge/transition of care (reference Diabetes, Type 2 (Adult) CPG). 07/12/17 1645 Diabetes, Type 2 Problems Assessed (Type 2 Diabetes) all Problems Present (Type 2 Diabetes) hyperglycemia Plan of Care - Clarissa Segal, PT - 07/12/2017 12:32 PM EST Problem: Patient Care Overview Goal: Plan of Care Review Outcome: Ongoing (Interventions Implemented as Appropriate) 07/12/17 1225 Coping/Psychosocial Plan Of Care Reviewed With patient Physical Therapy Note Treatment Number: 1 Pertinent History of Current Problem: Pt had recent SOB from 3 weeks ago, found to have a STEMI. cath revealed 3VD, pt underwent CABG x3 07/08/16. Past Medical History: Patient Active Problem List [...] systolic CHF, 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 I11.0, I50.20 Precautions/Restrictions: sternal, fall, cardiac Assessment: Pt seen for initial evaluation. Now in CSCU, bring monitored for PAF, on amiodarone drip. Pt with good pain contorl, spo2 stable on RA, mobilizing well from chair and ambulating in hallway with FWW. Will try stairs and bed mobility with HOB flat/no rail (demonstrated today) and maybe try am bulation with cane or no walker, to help determine his needs for home. Expect he remi prgres well andbe able to go home with his and follow-up with outpt cardiac rehab when ready. Please see the Rehab Evaluation Summaries section for detailed objective data and specifics of today's session. Mobility Recommendations:transfer ambualte with supervision with FWW at least 4x/day Anticipated Physical Therapy Frequency: 1-3 more visits Anticipated Equipment Needs at Discharge: (may need a FWW, to be determined) Anticipated Discharge Disposition: home with assist Pager: [phone] CLARISSA SEGAL, PT 07/12/2017 Physical Therapy Rehabilitation Department 2017 PT Evaluation [...] systolic CHF, 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 I11.0, I50.20 ?? Clinical presentation: Stable Evolving Unstable x ?? Examination of Body Systems: Addressing 1-2 elements Addressing 3 + elements Addressing 4 + elements x Clinical decision: high complexity based on information outlined in this evaluation. Problem: Acute Rehab Services Goal & Intervention Plan Goal: Bed Mobility Goal Stand Alone Therapy Goal Outcome: Ongoing (Interventions Implemented as Appropriate) 07/12/17 1225 Bed Mobility Goal Bed Mobility Goal, Date Established 07/12/17 Bed Mobility Goal, Time to Achieve 2 - 3 days Bed Mobility Goal, Activity Type supine to sit/sit to supine Bed Mobility Goal, Ford Level supervision required Bed Mobility Goal, Additional Goal adheres to psternal precautions for transfer Goal: Gait Training Goal Stand Alone Therapy Goal Outcome: Ongoing (Interventions Implemented as Appropriate) 07/12/17 1225 Gait Training Goal Gait Training Goal, Date Established 07/12/17 Gait Training Goal, Time to Achieve 2 - 3 days Gait Training Goal, Ford Level supervision required Gait Training Goal, Assist Device walker, rolling (or least restrictive device) Gait Training Goal, Distance to Achieve ascend and descends 5 steps withrail and supervision Goal: Goal Transfer Training Stand Alone Therapy Goal Outcome: Ongoing (Interventions Implemented as Appropriate) 07/12/17 1225 Goal Transfer Training Transfer Training Goal, Date Established 07/12/17 Transfer Training Goal, Time to Achieve 2 - 3 days Transfer Training Goal, Activity Type kdl-hi-pqbve/mfywo-jn-fhc;xtc-od-iisxp/zgkfw-rc-rip;toilet Transfer Train Goal, Ford Level supervision required Transfer Training Goal, Additional Goal adheres to sternal precautions during transfer Consult Note - Octavia Vaughn RN - 07/12/2017 10:50 AM EST [facility] Gregory Hoang was seen today regarding participation in the outpatient Phase [address] [facility]. The patient agrees to a referral to this program. The referral will be sent at discharge and the patient should be contacted by the Program within 1- 2 weeks from discharge. Plan of Care - Carmen Berry RN - 07/12/2017 6:27 AM EST Problem: Patient Care Overview Goal: Plan of Care Review Outcome: Ongoing (Interventions Implemented as Appropriate) 07/12/17 0612 Coping/Psychosocial Plan Of Care Reviewed With patient Plan of Care Review Progress progress towards functional goals is fair OUTCOME EVALUATION NOTE: OUTCOME SUMMARY: Pt a/o, vss on ra, denies sob, pain controlled with prn tylenol. Tele showing nsr 70-80 with intermittent afib lasting up to rates up to 140s, pt asymptomatic. Amio infusing per orders. Pt c/o sorenessat IV site, amio to other piv and LIDDER at bedside to help assess, IV removed. Pt oob ambulating in br with 1 assist. No other complaints at this time will continue to monitor. PLAN MOVING FORWARD: Encourage ambulation and IS use, monitor tele, INDIVIDUALIZED FALL PREVENTION INTERVENTIONS: Patient-specific fall risk factors per assessment: [current deficits]: Sternal precautions, generalized weakness, IV, lines Assistance [level of assistance required for transfers and ambulation]: I assist Supervision [direct monitoring required during toileting and ADLs]: SBA, rings aprop Surveillance [continuous indirect monitoring]: Tele, O2 Patient-specific fall prevention interventions for sensory deficits provided, if applicable: [X] N/A CPG GOAL OUTCOME EVALUATION: ongoing Goal: Fall Prevention-Safe Patient Handling Outcome: Ongoing (Interventions Implemented as Appropriate) 07/11/17199907/11/17200907/12/17 [facility] Daily Care Interventions Self-Care Promotion -- -- -- Activity and Safety Assistive Device -- -- -- Musculoskeletal Interventions Muscle Strengthening -- -- -- Mark Fall Risk History of Falling 0 -- -- Secondary Diagnosis 15 -- -- Ambulatory Aids 15 -- -- Intravenous Therapy/Heparin/Saline Lock 20 -- -- Gait/Transferring 10 -- -- Mental Status 0 -- -- Score 60 -- -- OTHER Mark Fall Risk High -- -- Restraint Interventions Safety Promotion/Fall Prevention -- -- safety round/check completed Positioning Body Position -- supine, head elevated -- 07/12/17611 Daily Care Interventions Self-Care Promotion independence encouraged;BADL personal objects within reach;BADL personal routines maintained Activity and Safety Assistive Device Front wheel walker Musculoskeletal Interventions Muscle Strengthening activity/mobility promoted;mobility in bed promoted Mark Fall Risk History of Falling -- Secondary Diagnosis -- Ambulatory Aids -- Intravenous Therapy/Heparin/Saline Lock -- Gait/Transferring -- Mental Status -- Score -- OTHER Mark Fall Risk -- Restraint Interventions Safety Promotion/Fall Prevention -- Positioning Body Position -- Goal: Infection Control Outcome: Ongoing (Interventions Implemented as Appropriate) 07/11/171999 Safety Interventions Isolation Precautions standard precautions maintained Infection Prevention environmental surveillance performed;rest/sleep promoted;single patient room provided Coping Strategies Supportive Measures active listening utilized;decision-making supported;positive reinforcement provided Problem: Cardiac Surgery (Adult) Goal: Signs and Symptoms of Listed Potential Problems Will be Absent, Minimized or Managed (Cardiac Surgery) Signs and symptoms of listed potential problems will be absent, minimized or managed by discharge/transition of care (reference Cardiac Surgery (Adult) CPG). 07/12/17611 Cardiac Surgery Problems Assessed (Cardiac Surgery) all Problems Present (Cardiac Surgery) dysrhythmia/arrhythmia Plan of Care - Cathryn Guido RN - 07/10/2017 9:06 PM EST Problem: Patient Care Overview Goal: Plan of Care Review Outcome: Ongoing (Interventions Implemented as Appropriate) 07/10/172099 Coping/Psychosocial Plan Of Care Reviewed With patient;spouse Plan of Care Review Progress progress towards functional goals is fair OUTCOME EVALUATION NOTE: OUTCOME SUMMARY: VSS; afebrile. Went into atrial fib earlier in the day just after receiving his PO amiodarone dose. Two 2.5 mg doses of IV metoprolol and eventually converted back to sinus rhythm. [place] sheet for more information. Gregory wanted to remain in chair all day. Around 1400 and with the assistance of two staff, he stood and marched in place. [place] weak, wanting to sit back down. Remained in chair until 1820 when he was assisted back to bed. He then promptly went back in rapid atrial fib.Dr. Maldonado notified, aware and wanting to wait before giving any metoprolol. SBP just around 90 throughout these episodes. Afib lasted about 25 minutes and he converted to sinus rhythm aroun 1910. See flow sheet for further information. PLAN MOVING FORWARD: Continue monitoring and treating afib when it occurs with goal of maintaining sinus rhythm. Encourage IS use, coughing and deep breathing. Assist with ambulation as tolerated. Continue monitoring and treating blood glucoses as needed and ordered. PA/lateral chest xray tomorrow, 07/11. INDIVIDUALIZED FALL PREVENTION INTERVENTIONS: Patient-specific fall risk factors per assessment: [current deficits]: As noted in EMR. Assistance [level of assistance required for transfers and ambulation]: As noted in EMR. Supervision [direct monitoring required during toileting and ADLs]: Eyes on hands on and as noted inEMR. Surveillance [continuous indirect monitoring]: Purposeful hourly rounding and as noted in EMR. Patient-specific fall prevention interventions for sensory deficits provided, if applicable: As noted in EMR. CPG GOAL OUTCOME EVALUATION: Goal: Individualization & Mutuality Outcome: Ongoing (Interventions Implemented as Appropriate) 07/05/17 1000 Mutuality/Individual Preferences What Anxieties, Fears or Concerns Do You Have About Your Health or Care? concern about open heart surgery What Questions Do You Have About Your Health or Care? none What Information Would Help Us Give You More Personalized Care? none Goal: Fall Prevention-Safe Patient Handling Outcome: Ongoing (Interventions Implemented as Appropriate) 07/10/1784507/10/17 0848 07/10/17 1800 Mark Fall Risk History of Falling 0 -- -- Secondary Diagnosis 15 -- -- Ambulatory Aids 0 -- -- Intravenous Therapy/Heparin/Saline Lock 20 -- -- Gait/Transferring 10 -- -- Mental Status 0 -- -- Score 45 -- -- OTHER Mark Fall Risk High -- -- Restraint Interventions Safety Promotion/Fall Prevention -- activity supervised;fall prevention program maintained;nonskid shoes/slippers when out of bed;safety round/check completed -- Positioning Body Position -- -- up in chair Goal: Infection Control Outcome: Ongoing (Interventions Implemented as Appropriate) 07/09/17199907/10/17847 Safety Interventions Isolation Precautions -- standard precautions maintained Infection Prevention -- environmental surveillance performed;rest/sleep promoted Coping Strategies Supportive Measures self-care encouraged;self-reflection promoted -- Goal: Discharge Needs Assessment Outcome: Ongoing (Interventions Implemented as Appropriate) 07/10/172099 Discharge Needs Assessment Concerns To Be Addressed no discharge needs identified Readmission Within The Last 30 Days no previous admission in last 30 days Equipment Needed After Discharge none (unknown at this time) Discharge Disposition (home with VNA) Activity/Self Care Review of Systems Equipment Currently Used at Home none Living Environment Transportation Available family or friend will provide;car Goal: Interdisciplinary Rounds/Family Conf Outcome: Ongoing (Interventions Implemented as Appropriate) 07/10/172099 Interdisciplinary Rounds/Family Conf Participants patient (spouse) Problem: Skin Integrity Impairment, Risk/Actual (Adult) Goal: Identify Related Risk Factors and Signs and Symptoms Related risk factors and signs and symptoms are identified upon initiation of Human Response Clinical Practice Guideline (CPG) Outcome: Ongoing (Interventions Implemented as Appropriate) 07/10/172099 Skin Integrity Impairment, Risk/Actual Skin Integrity Impairment, Risk/Actual: Related Risk Factors age extremes;immobility;treatment effects Signs and Symptoms (Skin Integrity Impairment) edema Problem: Cardiac Surgery (Adult) Goal: Signs and Symptoms of Listed Potential Problems Will be Absent, Minimized or Managed (Cardiac Surgery) Signs and symptoms of listed potential problems will be absent, minimized or managed by discharge/transition of care (reference Cardiac Surgery (Adult) CPG). Outcome: Ongoing (Interventions Implemented as Appropriate) 12/16/17 2100 Cardiac Surgery Problems Assessed (Cardiac Surgery) all Problems Present (Cardiac Surgery) pain;dysrhythmia/arrhythmia Problem: Diabetes, Type 2 (Adult) Goal: Signs and Symptoms of Listed Potential Problems Will be Absent, Minimized or Managed (Diabetes, Type 2) Signs and symptoms of listed potential problems will be absent, minimized or managed by discharge/transition of care (reference Diabetes, Type 2 (Adult) CPG). Outcome: Ongoing (Interventions Implemented as Appropriate) 07/10/172099 Diabetes, Type 2 Problems Assessed (Type 2 Diabetes) all Problems Present (Type 2 Diabetes) hyperglycemia Initial Assessments - Trenton Young MSW - 07/09/2017 11:37 AM EST Office of Care Management Initial Assessment ERLIN Weiss reviewed record and discussed patient with Care Team. Source of Information: Patient, Chart, TreatmentTeam Introduced self/reviewed role; services accepted. Reason for Hospitalization: Reason for Admission as Stated by Patient: chest pain and trouble breathing 72 year old male POD#1 s/p CABGx3 with pre-operative placed IABP for severe LV dysfunction. pmhx pertinent for HTN, CHF, CAD, nSTEMI, IDDM, MARIA VICTORIA, BPH, thyroid carcinoma s/p thyroidectomy melanoma Past Medical History: Diagnosis Date ??? BPH (benign prostatic hyperplasia) 11/28/2013 ??? Melanoma 2006 mid back ??? Urinary retention 04/05/2013 Hospitalizations Within the Past 30 Days: none Anticipated Length Of Stay (If known): Expected Length of Hospitalization: 8 Current Decision-Making Capacity: TITUS -pt intubated and sedated with IABP in place. Advance Care Planning: In eChart Current Coping/Education/Information Needs: unknown Current Functional Ability:mobilizing well from chair and ambulating in hallway with FWW Functional Status Prior to Admission: Independant Home Environment: will live on first story of his 2 story home after DC 4ste Social & Family Supports/Community Resources: , 4 adult children, grandchildren, friends Behavioral Health History: denies Substance Use/Abuse: never drink Other Pertinent/Service Specific Information: None Health/Prescription Coverage: Primary Insurance: MEDICARE Secondary Insurance: [employer] [place] Prescription Coverage: yes [facility]acy[facility] Other: none Primary Care Provider: Lovely Vicente MD [phone] Patient/Caregiver Goals of Treatment:live and get my breath back Potential Needs for Transition of Care: [facility]hab[facility]SNF[facility] Home Health: NA DME: TBD Dialysis: na Community Resources: available Transportation: yes Other: none Anticipated Barriers to Discharge/Special Considerations: none Plan: Likely SNF Rehab before home A member of the Care Management team will continue to monitor progress, follow for continuity of care and assist with transition of care planning. ERLIN Weiss Pager: [phone] Consult Note - Katerin Azul RN - 07/09/2017 10:05 AM EST Diabetes Management Team Inpatient Consult Date of Consultation: 07/09/2017 Consult Requested by: Primary team- Cardiac Surgery Reason for Consultation: Gregory Hoang is a 72 y.o. male with PMH significant for T2DM, CAD, HTN, CHF NYHA Class III-IV, MARIA VICTORIA on CPAP, BPH, thyroid carcinoma s/p thyroidectomy who was admitted on 07/05/2017 with late STEMI and is currently POD 2 s/p CABG X3. We are being consulted to assist with diabetes management and to provide a review of [facility] diabetes care. Diabetes History: Gregory Hoang has had diabetes for . Current outpatient diabetes regimen: Medications: Lantus 22-27 units nightly, Humalog Lispro 16-20 units 3X/day, metformin 850 mg twice daily (1 tablet in AM, 2 in evening) Medications on hand or issues filling prescriptions? Working meter? Accu-chek Elif plus Monitoring ? Most recent HA1c was done on 07/06/2017 and was 6.8%, suggesting an average glucose of approx 150 mg/dL for the past 6-8 weeks. Typical diet is: unable to discuss Typical exercise regimen is unknown Trouble with hypoglycemia unknown Diabetes Complications Status: Eyes: unknown Kidneys: prior GFR 60 Feet: unknown Sensory: unknown Autonomic: unknown Cardiac: yes Current Hospital Diabetes Care: Medications: Unsulin gtt. Monitoring: Q 1 hrs Diet: NPO ROS: unable to do at this time due to patient request/condition PMH Past Medical History: Diagnosis Date ??? BPH (benign prostatic hyperplasia) 11/28/2013 ??? Melanoma 2006 mid back ??? Urinary retention 04/05/2013 Current Hospital Medications: ??? meTOPROLOL 12.5 mg Oral Q8H LUZ ??? furosemide 20 mg Intravenous Daily ??? [START ON 07/10/2017] AMIOdarone 200 mg Oral BID ??? insulin regular human 0.5-16 Units/hr Intravenous Change bag every evening ??? acetaminophen 1,000 mg Intravenous Q8H LUZ ??? insulin lispro 3-6 Units Subcutaneous TID WC ??? chlorhexidine 15 mL Oral 2 times per day ??? pantoprazole 40 mg Oral Daily Or ??? pantoprazole 40 mg Intravenous Daily ??? aspirin 81 mg Oral Daily Or ??? aspirin 300 mg Rectal Daily ??? senna-docusate 2 tablet Oral Daily ??? magnesium hydroxide 10 mL Oral Daily ??? levothyroxine 175 mcg Oral QAM ??? atorvastatin 80 mg Oral QPM Infusions: ??? AMIOdarone 1 mg/min (07/09/17 0600) ??? sodium chloride 0.9% 100 mL/hr (07/08/17 0600) ??? propofol Stopped (07/08/17 1719) ??? fentaNYL 25 mcg/hr (07/09/17 0709) ??? NORepinephrine NS Stopped (07/09/17 0430) ??? nitroGLYcerin 20 mcg/min (07/09/17 0520) PRN: oxyCODONE, insulin regular human, dextrose 50%, sodium chloride 0.9%, sodium chloride 0.9%, ondansetron, [START ON 07/10/2017] bisacodyl, fentaNYL Citrate (PF) OR fentaNYL, fentaNYL (PF) OR fentaNYL, potassium chloride OR potassium chloride OR potassium chloride Allergy: No Known Allergies Social history: Social History Substance Use Topics ??? Smoking status: Former Smoker Packs/day: 3.00 Years: 5.00 Types: Cigarettes Quit date: 07/26/1967 ??? Smokeless tobacco: Never Used ??? Alcohol use No Family history: No family history on file. Vitals Last value Range last 24 hrs Temperature Temp: 37.5 ??C (99.5 ??F) Temp: [37.3 ??C (99.1 ??F)-38.4 ??C (101.1 ??F)] Heart Rate Heart Rate: 106 Heart Rate: [87-156] Blood Pressure BP: 171/76 BP: -- Respiratory Rate Resp: 23 Resp: [16-23] SpO2 SpO2: 98 % SpO2: [97 %-100 %] Physical Exam: Gen: Sitting up in cardiac chair, moaning, asking to not be interviewed at this time. SBP 80, Rest of PE deferred at this time Labs: Results for GREGORY HOANG ( ) as of 07/09/2017 13:24 Ref. Range 07/09/2017 02:30 Sodium Latest Ref Range: 135 - 145 mmol/L 144 Potassium Latest Ref Range: 3.5 - 5.0 mmol/L Not Perf Chloride Latest Ref Range: 98 - 107 mmol/L 111 (H) CO2 Latest Ref Range: 22 - 31 mmol/L 21 (L) Anion Gap Latest Ref Range: 5 - 15 mmol/L 12 BUN Latest Ref Range: 10 - 20 mg/dL 17 Creatinine Latest Ref Range: 0.80 - 1.50 mg/dL 1.34 Estimated GFR Latest Ref Range: >=60 53 (L) Glucose Lvl Latest Ref Range: 65 - 199 mg/dL 179 Calcium Latest Ref Range: 8.5 - 10.5 mg/dL 7.1 (L) Results for GREGORY HOANG ( ) as of 07/09/2017 13:24 Ref. Range 07/06/2017 02:20 Hemoglobin A1C Latest Ref Range: 4.3 - 5.6 % 6.8 (H) Assessment: Gregory Hoang is a 72 y.o. male with PMH significant for T2DM, CAD, HTN, CHF NYHA Class III-IV, MARIA VICTORIA on CPAP, BPH, thyroid carcinoma s/p thyroidectomy who was admitted on 07/05/2017 with late STEMI and is currently POD 2 s/p CABG X3. Requiring significant dose of insulin gtt. Remains NPO but will addmeal- associate insulin orders incase he starts eating this evening. Lantus dose weight based. Diabetes adequately controlled and complicated by CAD. Currently with variability of blood glucose levels while hospitalized requiring adjustment of insulin regimen and DM medications. Requiring significant dose of insulin gtt. Remains NPO but will add meal- associate insulin orders incase he starts eating this evening. Lantus dose weight based. Plan: Discussed with primary team and RN at bedside- Alex Landers RN ?? Lantus 30 units this evening ?? Meal associated insulin, I:C ratio 1:10 ?? Continue insulin gtt for now. ?? Will re-evaluate in AM for potential to d/c gtt and start CF. half-way diabetes care: Medications - Outpatient treatment regimen recommendations pending based on the hospital course. Monitoring - continue BG tid ac & hs Diet - low fat/low carb diet Exercise - weight-bearing exercise 30 min/day, as tolerated Thank you for allowing us to provide care for your patient W/E coverage, Dr. Jeane Tatum, pager [phone] Katerin Patel. STACIE Azul Endocrinology Diabetes Management Pager [phone] Plan of Care - Stephanie Godoy RN - 07/08/2017 6:54 AM EST Problem: Patient Care Overview Goal: Plan of Care Review Outcome: Ongoing (Interventions Implemented as Appropriate) 07/08/17 0519 Coping/Psychosocial Plan Of Care Reviewed With patient;spouse Plan of Care Review Progress progress towards functional goals is fair OUTCOME EVALUATION NOTE: OUTCOME SUMMARY: Pt remained on 1:1 IABP overnight, had increasing levophed requirement to maintain MAP 60-70 per IABP. Epi left at 4. Cardiac index gradually increased to >3. Pt continued to wake/cough/gag during nursing care, sedation increased. Initial ABG with metabolic acidosis, improved with bicarb. Progressively became more tachycardic, from SR 80s to ST 100s, some improvement with IVF (HR now SR, 90s). Tmax 38.1, informed. Unable to control pt's glucose with current insulin protocol, insulin gtt at 15 w/ hourly boluses. informed, bolus order liberalized, no effect. Chest tubes with minimal output. Pt's family updated on pt's status. PLAN MOVING FORWARD: Continue to monitor hemodynamic status. Wean and remove IABP. INDIVIDUALIZED FALL PREVENTION INTERVENTIONS: Patient-specific fall risk factors per assessment: [current deficits]: IABP, invasive monitoring, recent surgery Assistance [level of assistance required for transfers and ambulation]: Sedated & dependent on staff Supervision [direct monitoring required during toileting and ADLs]: Total assist Surveillance [continuous indirect monitoring]: Telemetry, pulse oximetry, 1:1 nursing Patient-specific fall prevention interventions for sensory deficits provided, if applicable: NA CPG GOAL OUTCOME EVALUATION: Problem: Skin Integrity Impairment, Risk/Actual (Adult) Goal: Identify Related Risk Factors and Signs and Symptoms Related risk factors and signs and symptoms are identified upon initiation of Human Response Clinical Practice Guideline (CPG) Outcome: Ongoing (Interventions Implemented as Appropriate) 07/08/17518 Skin Integrity Impairment, Risk/Actual Skin Integrity Impairment, Risk/Actual: Related Risk Factors age extremes;immobility;tissue perfusion impaired;surgery/procedure Problem: Intra-Aortic Balloon Pump (Adult) Goal: Signs and Symptoms of Listed Potential Problems Will be Absent, Minimized or Managed (Intra-Aortic Balloon Pump) Signs and symptoms of listed potential problems will be absent, minimized or managed by discharge/transition of care (reference Intra-Aortic Balloon Pump (Adult) CPG). Outcome: Ongoing (Interventions Implemented as Appropriate) 07/08/17518 Intra-Aortic Balloon Pump Problems Assessed (Intra-Aortic Balloon Pump) all Problems Present (Intra-Aortic Balloon Pump) hemodynamic instability Problem: Cardiac Surgery (Adult) Goal: Signs and Symptoms of Listed Potential Problems Will be Absent, Minimized or Managed (Cardiac Surgery) Signs and symptoms of listed potential problems will be absent, minimized or managed by discharge/transition of care (reference Cardiac Surgery (Adult) CPG). Outcome: Ongoing (Interventions Implemented as Appropriate) 07/08/17518 Cardiac Surgery Problems Assessed (Cardiac Surgery) all Problems Present (Cardiac Surgery) electrolyte imbalance;hemodynamic instability Op Note - Yuan Webber MD - 07/07/2017 6:27 PM EST [facility] [place] Operative Note Patient Name: Gregory Hoang : [id number] MR#: [id number] Case Date: 07/07/2017 Surgeon: Surgeon(s) and Role: * Yuan Webber MD - Primary * Michael Drake PA - Physician Epidemiology Internship * Linda Flores PA - Physician Epidemiology Internship Preoperative diagnosis: 3VD Postoperative diagnosis: CAD, severe LV dysfunction, severely dilated LV, post Bypass EF 30% ?? Procedure(s) (LRB): @CABG, USING ARTERIAL GRAFT;SINGLE ARTERIAL GRAFT (WRVU 33.75) (N/A) @CABG, TWO VENOUS GRAFTS & ARTERIAL GRAFT (WRVU 7.93) (N/A) ENDOSCOPIC HARVEST VEIN(S) FOR CABG (WRVU 0.31) (Right) ? CABG x 3 THOMPSON->LAD, Seq SVG->OM1->D1 Anesthesia: General/Perez ?? Findings: , diffusely diseased, small and intramyocardial diag and OM, small LAD, PDA not graft able, chain of lakes, diffuse disease. severe LV dysfunction, severely dilated LV, post Bypass EF 30% ? Drains: Mediastinal and Pleural TECHNIQUE: The patient was brought to the operating room and placed on the operating table in the supine position. Following the induction of a general anesthetic by endotracheal technique and the placement of appropriate monitoring lines, he was prepped and draped usual the sterile prep. Simultaneous midsternal and lower extremity incisions were made. The incision through the sternum was carried down through the sternum. The left hemisternum was elevated with the mammary artery retractor. The mammary artery was dissected from the endothoracic fascia using Bovie electrocautery, significant branches were taken with hemoclips the distal end of the THOMPSON had excellent flow, was wrapped in a verapamil soaked gauze and set aside. The wound in the lower extremity was utilized to obtain useable portions of greater saphenous vein using a combination of open endoscopic techniques. These wounds were then closed using layered absorbable suture closure. The mammary artery retractor was removed and the mediastinal retractor was positioned. The pericardium was opened. He was heparinized and cannulated for bypass. He was brought on bypass. The aorta was cross clamped. The heart was arrested with cold hyperthermic blood cardioplegia. Additional doses of cardioplegia were given throughout the cross clamp intervals indicated by any significant rise in myocardial septal temperature or the return of any cardiac electrical activity. The sequential vein graft to the OM and diag was performed first using a 4 mm arteriotomy and a running 7-0 Prolene suture with an end to side graft to The OM, and a side to sidegraft to the diag.. The proximal coronary anastomosis was completed with the 4 mm aortic punch and running 6-0 Prolene suture. While the patient was being rewarmed on bypass, the LAD was dissected from the epicardium. This was a fairly difficult dissection in a deeply intramyocardial vessel. It was ultimately identified. A 4 mm arteriotomy was prepared and the end of the THOMPSON was anastomosed to the side of the LAD with a running 8-0 Prolene suture. The atraumatic clip on the THOMPSON pedicle was removed at the conclusion of the anastomosis and the heart promptly resuscitated indicating good flow through the THOMPSON. The cross clamp was then removed. He was electrically defibrillation and fully warmed on bypass. While being rewarmed, several maneuver were executed to remove all residual air from the left ventricular cavity as from the intraoperative echo. Once fully rewarmed on bypass, he was from bypass without difficulty. The above echo findings are noted. Protamine sulfate was administered. He was decannulated. Hemostasis was secured. Mediastinal pleural drainage catheters were placed. The sternum was reapproximated with surgical wires. Soft tissues anterior to the sternum were reapproximated using layered absorbable suture closure. Sterile dressings were applied and he was taken to the cardiothoracic intensive care unit in hemodynamically stable condition. Attestation: Case Date: 07/07/2017 I was present and I participated during the entire procedure (does not need to include opening and closing). YUAN WEBBER MD 07/07/2017 Brief Op Note - Yuan Webber MD - 07/07/2017 5:55 PM EST Brief Operative Note Patient Name: Gregory Hoang : [id number] MR#: [id number] Case Date: 07/07/2017 Surgeon: Surgeon(s) and Role: * Yuan Webber MD - Primary * Michael Drake PA - Physician Epidemiology Internship * Linda Flores PA - Physician Epidemiology Internship Preoperative diagnosis: 3VD Postoperative diagnosis: CAD, severe LV dysfunction, severely dilated LV, post Bypass EF 30% Procedure(s) (LRB): @CABG, USING ARTERIAL GRAFT;SINGLE ARTERIAL GRAFT (WRVU 33.75) (N/A) @CABG, TWO VENOUS GRAFTS & ARTERIAL GRAFT (WRVU 7.93) (N/A) ENDOSCOPIC HARVEST VEIN(S) FOR CABG (WRVU 0.31) (Right) CABG x 3 THOMPSON->LAD, Seq SVG->OM1->D1 Anesthesia: General/Perez Findings: , diffusely diseased, small and intramyocardial diag and OM, small LAD, PDA not graft able, chain of lakes, diffuse disease. severe LV dysfunction, severely dilated LV, post Bypass EF 30% Drains: Mediastinal and Pleural Specimens removed during surgery: None Disposition: taken directly to the ICU, intubated and in a critical condition. Condition: doing well without problems Attestation: Case Date: 07/07/2017 I was present and I participated during the entire procedure (does not need to include opening and closing). (Please see the Surgical Encounter Summary for any Implant and Specimen details pertinent to this patient.) Plan of Care - Stephanie Godoy RN - 07/07/2017 6:33 AM EST Problem: Skin Integrity Impairment, Risk/Actual (Adult) Goal: Identify Related Risk Factors and Signs and Symptoms Related risk factors and signs and symptoms are identified upon initiation of Human Response Clinical Practice Guideline (CPG) Outcome: Ongoing (Interventions Implemented as Appropriate) 07/07/17 0622 Skin Integrity Impairment, Risk/Actual Skin Integrity Impairment, Risk/Actual: Related Risk Factors age extremes;immobility;surgery/procedure;tissue perfusion impaired OUTCOME EVALUATION NOTE: OUTCOME SUMMARY: Pt had some hypotension overnight (MARGA 70s/40s by IABP) d/t metoprolol and sleeping soundly. Resolved without intervention. One episode of acute confusion upon waking - pt inadvertently removed one PIVand sat upright in bed. Easily reoriented, CXR performed to assess IABP placement. Insertion site with some oozing, no complications since. Pt expresses anxiety regarding surgery today, pt educated on process, concerns addressed, PO ativan given. Denies all complaints except intermittent numbness & pain in feet d/t gout. Improved w/ tylenol and IV magnesium. Pt NPO since midnight, hibiclens bath given, ready for surgery. PLAN MOVING FORWARD: Continue to monitor IABP site, hemodynamic status. Second case in OR today. INDIVIDUALIZED FALL PREVENTION INTERVENTIONS: Patient-specific fall risk factors per assessment: [current deficits]: Invasive monitoring, IABP Assistance [level of assistance required for transfers and ambulation]: Pt on bedrest Supervision [direct monitoring required during toileting and ADLs]: Standby Surveillance [continuous indirect monitoring]: Telemetry, pulse oximetry, purposeful hourly rounding Patient-specific fall prevention interventions for sensory deficits provided, if applicable: NA CPG GOAL OUTCOME EVALUATION: Problem: Intra-Aortic Balloon Pump (Adult) Goal: Signs and Symptoms of Listed Potential Problems Will be Absent, Minimized or Managed (Intra-Aortic Balloon Pump) Signs and symptoms of listed potential problems will be absent, minimized or managed by discharge/transition of care (reference Intra-Aortic Balloon Pump (Adult) CPG). Outcome: Ongoing (Interventions Implemented as Appropriate) 07/07/17621 Intra-Aortic Balloon Pump Problems Assessed (Intra-Aortic Balloon Pump) all Problems Present (Intra-Aortic Balloon Pump) none Problem: Cardiac: ACS (Acute Coronary Syndrome) (Adult) Goal: Signs and Symptoms of Listed Potential Problems Will be Absent, Minimized or Managed (Cardiac:ACS) Signs and symptoms of listed potential problems will be absent, minimized or managed by discharge/transition of care (reference Cardiac: ACS (Acute Coronary Syndrome) (Adult) CPG). 07/07/17621 Cardiac: ACS (Acute Coronary Syndrome) Problems Assessed (Acute Coronary Syndrome (ACS)) all Problems Present (Acute Coronary Syndrome (ACS)) none Med Student Progress Note - Katty Hahn - 07/07/2017 6:19 AM EST Inpatient Cardiology Progress Note Patient Name: Gregory Hoang Date of Admission: 07/05/2017 ( Hospital Day 2 days ) Service: S1 ID: Gregory Hoang is a 72 y.o. male with a history of MARIA VICTORIA (on CPAP), DM2, COPD, HTN, HLD, GERD, hypothyroidism s/p thyroidectomy for thyroid cancer), and melanoma presenting with late STEMI s/p cath showing multi-vessel disease with LVEDP 38. Active Problems: Patient Active Problem List Diagnosis Code ??? [...] systolic CHF, 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 I11.0, I50.20 24 hr events: - Episode of overnight waking up disoriented, pulled out IV and removed gown, patient states he was in the middle of a dream, currently AOx4. Chest Xray was done to evaluate position of IABP, per report it is mildly retracted 3.7cm below superior aortic knob - episode of hypotension to 80/48 HR 73 after receiving evening metoprolol, RN reports patient was asleep at this time, BP now in the 120-140's/90's - troponin downtrending to 2.07 - Feeling anxious about CABG proceduretoday ROS: Denies CP, SOB, palpitations, PND, Orthopnea, dizziness/LH, LE swelling or pain, n/v, abd pain. Telemetry: NSR HR 68-80 with 3 beat NSVT and PVC Meds: Continuous Infusions: ??? heparin (porcine) 2,400 Units/hr (07/07/17 0800) ? ? nitroPRUSSide 0.2 mg/mL (standard ADULT & Pedi greater than 20kg) infusion Stopped () Scheduled Meds: ??? meTOPROLOL tartrate 12.5 mg Oral 2 times per day ??? chlorhexidine 15 mL Oral BID ??? aspirin 81 mg Oral Daily ??? levothyroxine 175 mcg Oral QAM ??? sodium chloride 0.9 % 5 mL Intravenous BID ??? insulin regular human 0.5-16 Units/hr Intravenous Change bag every evening ??? atorvastatin 80 mg Oral QPM PRN Meds:.LORazepam, acetaminophen, heparin (porcine) AND heparin (porcine), sodium chloride 0.9%, lidocaine, nitroGLYcerin, iohexol, dextrose 50%, insulin regular human, potassium chloride ORpotassium chloride Physical Exam: Last value Range last 24 hrs Temperature Temp: 36.9 ??C (98.4 ??F) Temp: [36.4 ??C (97.5 ??F)-36.9 ??C (98.4 ??F)] Heart Rate Heart Rate: 79 Heart Rate: [69-106] Blood Pressure BP: 171/76 BP: (123-171)/(56-83) Respiratory Rate Resp: 14 Resp: [9-23] SpO2 SpO2: 98 % SpO2: [93 %-99 %] Intake/Output Summary (Last 24 hours) at 07/07/17 0912 Last data filed at 07/07/17 0800 Gross per 24 hour Intake 1815.9 ml Output 3100 ml Net -1284.1 ml cumulative I/O's since admission: -2.5L Patient Vitals for the past 168 hrs: Weight 07/07/17 0537 82.2 kg (181 lb 3.5 oz) 07/06/17 0600 84.8 kg (186 lb 15.2 oz) 07/05/17 1628 86 kg (189 lb 9.5 oz) Admit wt: 86kg Gen: in bed in NAD; alert, oriented, interactive HEENT: MMM CV: RRR, S1S2, no m/r/g, no JVD Resp: anterior lung ballesteros CTAB Abd: nondistended, soft, NT, +BS Ext: WWP, 2+ DP pulses, mild 1+ pitting edema in left lower extremity, dressing to R groin clean, dry, intact, no hematoma noted Neuro: grossly intact, awake, alert, oriented to person, place, time, and situation Labs Recent Labs 07/07/17 0515 07/06/1721907/05/172019 WBC 7.6 7.6 10.3* HGB 14.4 13.4* 14.1 HCT 42.1 39.7* 40.8 PLATELET 188 189 204 Recent Labs 07/07/17 0515 07/06/17 1940 07/06/1710 07/05/172019 NA 142 -- 141 -- 139 K 4.4 3.9 4.5 < > 3.8 CL 102 -- 101 -- 98 CO2 26 -- 27 -- 27 BUN 15 -- 16 -- 20 CREATININE 1.09 -- 1.04 -- 1.12 < > = values in this interval not displayed. No results for input(s): AST, ALT, ALKPHOS, BILITOT, BILIDIR in the last 168 hours. Recent Labs 07/07/17 0515 07/06/1780907/05/172019 CALCIUM 8.6 8.1* 8.1* MAGNESIUM 0.94 0.84 0.68* Recent Labs 07/07/17 0515 07/07/17 0000 07/06/17 1815 07/06/17 1124 INR -- -- -- 1.0 PT -- -- -- 13.3 PTT 69* 103* 94* 52* Recent Labs 07/07/17 0515 07/06/17 1940 07/06/17 1410 CK 88 93 101 TROPONINT 2.07* 2.27* 2.34* Recent Labs 07/07/17 0753 07/07/17 0703 07/07/17 0617 07/07/17 0501 07/07/17 0408 07/07/17 0303 POCGLU 178 188 207* 182 199 188 CXR 07/06/2017: Intra-aortic component tip appears similar. Mild interstitial edema. ?? CXR 07/05/2017: Intra-aortic balloon pump catheter in satisfactory position. No acute cardiopulmonary process. ?? Echo Transthoracic: The left ventricle is mildly dilated. Left ventricular wall thickness is normal. There are left ventricular segmental wall motion abnormalities present, as shown in the diagram below. Global left ventricular systolic function is severely reduced. The quantitative left ventricular ejection fraction by biplane Oneill's method is 29%. Doppler assessment is consistent with elevated left sided filling pressure. 2. Right ventricular chamber size, wall thickness, and systolic function are within normal limits. 3. The left atrium is moderately dilated. The right atrium appears normal. 4. There is no hemodynamically significant valve disease. 5. See remainder of report for additional findings. ?? EKG 07/06/2017: Normal sinus rhythm . 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) ST & T wave abnormality, consider lateral ischemia. Abnormal ECG When compared with ECG of 05-JUL-2017 20:39, No significant change was found ?? Cardiac Catheterization (07/06/2017): RIGHT dominance LVEDP >35 Left main: There was mild diffuse disease of the entire vessel segment of the left main artery. ??The distal segment of the left main had a single discrete 40% stenosis. LAD: There was mild diffuse disease of the entire vessel segment of the left anterior descending artery (LAD). ??The mid segment of the LAD??had a single discrete 90% stenosis. ??This lesion involved??bifurcation. There was a 65% long segmental stenosis of the proximal segment of the first diagonal branch (Diagonal 1) of the LAD. ??The Diagonal 1 was large. ? LCx: There was mild diffuse disease of the entire vessel segment of the left circumflex artery (LCX). ??The mid segment of the LCX had a single discrete 50% stenosis. ?? RCA: ??There was mild diffuse disease of the entire vessel segment of the right coronary artery (RCA). There were multiple discrete 60% stenoses of the mid segment of the right posterior descending branch (RPDA) of the RCA. Ramus: There was a 95% single discrete stenosis of the ostial segment of the ramus. ? Assessment: Gregory Mccollum Natalya??is a 72 y.o.??male??w/ a h/o MARIA VICTORIA (on CPAP), DM2, COPD, HTN, HLD, GERD, and Hyperthyroid presenting with late STEMI. CT surgery is consulted for CABG today for cath showing MVD (proximal Lx, Ramus, LAD) with LVEDP 38. IABP was placed to preserve coronary perfusion while awaiting CABG. (Per my reading of the SYNTAX trial, CABG is recommended for patients with left main disease, resulting in lower rates of major CV events such as , stroke, MT, repeat revascularization compared to PCI). In this setting we will continue heparin drip and hold plavix before his procedure today. Plan: #Late STEMI - IABP in place given multi-vessel disease, small arteries, and reduced LV function, heparin runningthrough - CABG planned for today, 07/07/2017 - s/p plavix load, holding further doses for CABG - continue ASA - continue statin - off nitroprusside drip - continue metoprolol 12.5mg BID as tolerated - continue heparin drip - hold off on Lasix as patient's fluid and hemodynamic status will be closely monitored during procedure - 2L NC/NRB for oxygen ? #DM2 - insulin drip as BG up to 300s and pending CABG - hold metformin - f/u HAI ? #Home Meds - continue levothyroxine 175mcg - CPAP at night ?? #Restless legs - On home magnesium, repleting here as needed ?? #Anxiety - Ativan 1mg q6h as needed ? # Routine - DVT PPx: heparin drip - GI PPx: none - Diet: NPO - Lines/Tubes: PIV x2, IABP - Dispo: CVCC - code status: Full Code Katty Jovani, MS3 [facility], [facility] [employer] [facility] Cardiology S1 (Pager [phone]) Plan of Care - Emelia Ibarra RN - 07/06/2017 2:50 PM EST Problem: Intra-Aortic Balloon Pump (Adult) Goal: Signs and Symptoms of Listed Potential Problems Will be Absent, Minimized or Managed (Intra-Aortic Balloon Pump) Signs and symptoms of listed potential problems will be absent, minimized or managed by discharge/transition of care (reference Intra-Aortic Balloon Pump (Adult) CPG). 07/06/17 1448 Intra-Aortic Balloon Pump Problems Assessed (Intra-Aortic Balloon Pump) bleeding;pain;site infection;skin breakdown Monitor balloon site Q 2 hours and document Plan of Care - Emelia Ibarra RN - 07/06/2017 2:48 PM EST Problem: Cardiac: ACS (Acute Coronary Syndrome) (Adult) Goal: Signs and Symptoms of Listed Potential Problems Will be Absent, Minimized or Managed (Cardiac:ACS) Signs and symptoms of listed potential problems will be absent, minimized or managed by discharge/transition of care (reference Cardiac: ACS (Acute Coronary Syndrome) (Adult) CPG). Outcome: Ongoing (Interventions Implemented as Appropriate) 07/06/17 1442 Cardiac: ACS (Acute Coronary Syndrome) Problems Assessed (Acute Coronary Syndrome (ACS)) chest pain (angina);dysrhythmia/arrhythmia;hemodynamic instability Problems Present (Acute Coronary Syndrome (ACS)) hemodynamic instability Pt. On balloon pump. Monitor vital signs Q 1 hour check balloon site Q 2 hours for color,temperature, and feeling and for any bleeding. Remind patient to let nursing know if he has any chest discomfortat all. Consult Note - Yuan Webber MD - 07/06/2017 2:39 PM EST Patient Name: Gregory Hoang Patient Age: 72 y.o. Birthdate: 1945 Admit date: 07/05/2017 Attending Physician: Daphne Shahid MD I am seeing Gregory Hoang at the request of Daphne Shahid MD for the evaluation of Sveren ischemic cardiomyopathy and acute myocardial infarction. Mr. Hoang is a 72 y.o. year old male who presented with a several week history of increasingly severe exertional dyspnea and orthopnea. He was ultimately evaluated at an outside hospital and ruled infor non-ST segment elevation MT. This almost certainly represents the residual of a recent transmural infarction with Q waves in his anterior wall. He underwent a cardiac catheterization which had an opportunity to review. This shows severe diffuse epicardial coronary disease. His echocardiogram showssevere LV dysfunction with an ejection fraction of less than 30%. His LVEDP was quite elevated. An intra-aortic balloon pump was placed. He was diuresed and stabilized. He additionally had market hypotension on arrival he is now pain-free and with an improvement in his A-a gradient. He has a remote history of thyroid carcinoma. A Current Problem List: Patient Active Problem List Diagnosis Code ??? Melanoma C43.9 ??? Seborrheic psoriasis- scalp and ingtergluteal area L40.8 ??? Skin lesion of chest wall L98.9 ??? Goiter E04.9 ??? MARIA VICTORIA (obstructive sleep apnea) on CPAP G47.33 ??? Urinary retention R33.9 ??? Atypical nevus of abdominal wall D22.5 ??? BPH (benign prostatic hyperplasia) N40.0 ??? STEMI (ST elevation myocardial infarction) I21.3 Past Medical History: Past Medical History: Diagnosis Date ??? BPH (benign prostatic hyperplasia) 11/28/2013 ??? Melanoma 2006 mid back ??? Urinary retention 04/05/2013 Past Surgical History: Past Surgical History: Procedure Laterality Date ??? PRG SOMATOSENSORY TEST, ANY/ALL PER. NERVES, TRUNK OR HEAD 03/28/2013 FACIAL NERVE MONITORING, SETUP performed by Manny Mcknight MD at [facility] MAIN OR ??? PRO COLONOSCOPY, REMV LESN, SNARE 01/16/2014 COLONOSCOPY, POLYPECTOMY, REMOVAL LESION BY SNARE performed by Nohemi Jaimes MD at [facility] ENDOSCOPY ??? PRO THYROIDECTOMY 03/28/2013 THYROIDECTOMY, TOTAL OR COMPLETE performed by Manny Mcknight MD at [facility] MAIN OR Social History: Social History Social [...] ??? Not on file Social History Narrative Physical Exam: BP 135/70 pule 100 NSR/ST Constitutional:Well appearing in no acute distress. Skin: Warm, well perfused. HEENT: within normal limits. NC/AT EOMI Neck: supple, no JVD, no bruit. Heart: regular rate and rhythm, without murmurs. Lungs: clear bilaterally. Abdomen: soft, nontender, active bowel sounds, no masses noted. Extremities: full range of motion; no clubbing, cyanosis, or edema. Neuro exam: Alert and oriented x 3. Strength grossly normal. STS Risk Factors Reviewed: All Negative Diabetes pos Dyslipidemia pos Hypertension pos Sleep Apnea pos Depression Lung Disease Liver Disease Recent Pneumonia Remote Pneumonia Cancer within 5 years pos Mediastinal Radiation Immunocompromise Present Peripheral Artery Disease Thoracic Aorta Disease Syncope CVA TIA Right Carotid Stenosis Left Carotid Stenosis Assessment and Plan: Gregory Hoang has severe triple-vessel atherosclerotic coronary disease and impaired LV dysfunction. I think it is he is an appropriate candidate for open revascularization. Mr. Hoang and his had the opportunity to ask any questions He had regarding surgery. We had along discussion regarding the risks and benefits of surgery. The risks include but are not limited to stroke, damage to any organ (heart, lung, liver, kidneys, brain, etc.), infection, need for blood tr ansfusion with the concomitant risks of AIDS and hepatitis, renal failure resulting in dialysis, prolonged respiratory failure requiring mechanical ventilation, graft failure, the need for a pacemaker,and the possibility of . Mr. Hoang seems to understand and wishes to proceed. We will plan for surgery on 07/07/2017. Consent was signed. In aggregate 60 minutes were spent evaluating this patient, reviewing all images, counseling/examining the patient and communicating with other involved physicians Yuan Webber MD [phone] Med Student Progress Note - Jovani Katty - 07/06/2017 6:10 AM EST Inpatient Cardiology Progress Note Patient Name: Gregory Hoang Date of Admission: 07/05/2017 ( Hospital Day 1 day ) Service: S1 ID: Gregory Hoang is a 72 y.o. male with a history of MARIA VICTORIA (on CPAP), DM2, COPD, HTN, HLD, GERD, and Hyperthyroid presenting with late STEMI Active Problems: Patient Active Problem List Diagnosis Code ??? Melanoma C43.9 ??? Seborrheic psoriasis- scalp and ingtergluteal area L40.8 ??? Skin lesion of chest wall L98.9 ??? Goiter E04.9 ??? MARIA VICTORIA (obstructive sleep apnea) on CPAP G47.33 ??? Urinary retention R33.9 ??? Atypical nevus of abdominal wall D22.5 ??? BPH (benign prostatic hyperplasia) N40.0 ??? STEMI (ST elevation myocardial infarction) I21.3 24 hr events: - No acute events overnight - on nitroprusside drip, BP per arterial line 90-130's/65-90, cuff pressures are not correlating - troponin to 2.26 from 2.13, CK 124 - fingerstick blood glucose 110-190 on insulin drip - Tolerating 2L NC, denies chest pain, SOB, feeling anxious about surgery ROS: Denies CP, SOB, palpitations, PND, Orthopnea, dizziness/LH, LE swelling or pain, n/v, abd pain. Telemetry: sinus rhythm/tach with HR in 85-101. Some PVC's Meds: Continuous Infusions: ??? heparin (porcine) 1,700 Units/hr (07/06/17 0800) ??? nitroGLYcerin 160 mcg/min (07/05/172019) ? ? nitroPRUSSide 0.2 mg/mL (standard ADULT & Pedi greater than 20kg) infusion 1 mcg/kg/min (07/06/17 0800) Scheduled Meds: ??? insulin lispro 2-8 Units Subcutaneous Q4H LUZ ??? aspirin 81 mg Oral Daily ??? levothyroxine 175 mcg Oral QAM ??? sodium chloride 0.9 % 5 mL Intravenous BID ??? insulin glargine 14 Units Subcutaneous Nightly ??? insulin regular human 0.5-16 Units/hr Intravenous Change bag every evening ??? atorvastatin 80 mg Oral QPM PRN Meds:.heparin (porcine) AND heparin (porcine), dextrose 50% OR glucagon (human recombinant), sodium chloride 0.9 %, lidocaine, nitroGLYcerin, iohexol, dextrose 50%, insulin regular human, potassium chloride OR potassium chloride Physical Exam: Last value Range last 24 hrs Temperature Temp: 36.7 ??C (98.1 ??F) Temp: [36.7 ??C (98.1 ??F)-37.5 ??C (99.5 ??F)] Heart Rate Heart Rate: 104 Heart Rate: [77-107] Blood Pressure BP: 159/76 BP: (116-190)/(43-105) Respiratory Rate Resp: 17 Resp: [14-23] SpO2 SpO2: 93 % SpO2: [92 %-98 %] Intake/Output Summary (Last 24 hours) at 07/06/17 0911 Last data filed at 07/06/17 0800 Gross per 24 hour Intake 1308.75 ml Output 2905 ml Net -1596.25 ml cumulative I/O's since admission: -1.5L Patient Vitals for the past 168 hrs: Weight 07/06/17 0600 84.8 kg (186 lb 15.2 oz) 07/05/17 1628 86 kg (189 lb 9.5 oz) Admit wt: 86kg Physical Exam: Gen: in bed in NAD; alert, oriented, interactive HEENT: MMM CV: RRR, S1S2, no m/r/g, no JVD Resp: Anterior lung ballesteros CTAB Abd: nondistended, soft, NT, +BS Ext: WWP, 2+ DP pulses, edema Neuro: grossly intact Labs Recent Labs 07/06/17 02207/05/17201907/05/17 1655 WBC 7.6 10.3* 6.8 HGB 13.4* 14.1 14.0 HCT 39.7* 40.8 41.0 PLATELET 189 204 197 Recent Labs 07/06/17 0810 07/06/1721907/05/17201907/05/17 1655 NA 141 -- 139 142 K 4.5 3.9 3.8 4.0 CL 101 -- 98 100 CO2 27 -- 27 28 BUN 16 -- 20 19 CREATININE 1.04 -- 1.12 1.04 No results for input(s): AST, ALT, ALKPHOS, BILITOT, BILIDIR in the last 168 hours. Recent Labs 07/06/17 0810 07/05/17201907/05/17 1655 CALCIUM 8.1* 8.1* 8.5 MAGNESIUM 0.84 0.68* 0.78 Recent Labs 07/06/17 0220 07/05/17201907/05/17 1655 PTT 52* 32 41* Recent Labs 07/06/17 0810 07/06/17 02207/05/172019 CK 124 129 149 TROPONINT 2.26* 2.13* 2.11* Recent Labs 07/06/17 0734 07/06/17 0703 07/06/17 0621 07/06/17 0508 07/06/17 0405 07/06/17 0300 POCGLU 198 181 172 154 142 116 Imaging/Studies: Chest Xray 07/06/17 FINDINGS: There is a new intra-aortic balloon pump catheter with the tip superimposed over the inferior end of the aortic knob. There are slightly low lung volumes but otherwise the lungs are clear. The cardiomediastinal silhouette is stable allowing for the AP positioning. No pleural effusion or pneumothorax is seen. ?? IMPRESSION Intra-aortic balloon pump catheter in satisfactory position. No acute cardiopulmonary process. EKG 07/05/17 Normal sinus rhythm Possible Left atrial enlargement Anteroseptal infarct , age undetermined Inferior infarct , noted on/before January 2013 ST & T wave abnormality, consider lateral ischemia Abnormal ECG When compared with ECG of 25-JAN-2013 12:20, Anteroseptal infarct is now Present ST now depressed in Lateral leads T wave inversion now evident in Lateral leads Cardiac Catheterization: 07/05/17 Triple vessel disease LVEDP 38 EF 25% Hemodynamics: Left Heart Pressures Resting: Syst Diast EDP a v m Ao 190 106 141 ? Post Contrast: Syst Diast EDP a v m Ao 189 101 LV 185 38 ? Coronary Angiography: Dominance: Right ? Left Main There was mild diffuse disease of the entire vessel segment of the left main artery. The distal segment of the left main had a single discrete 40% stenosis. ? Left Anterior Descending There was mild diffuse disease of the entire vessel segment of the left anterior descending artery (LAD). The mid segment of the LAD had a single discrete 90% stenosis. This lesion involved bifurcation. ? There was a 65% long segmental stenosis of the proximal segment of the first diagonal branch (Diagonal 1) of the LAD. The Diagonal 1 was large. ? Left Circumflex There was mild diffuse disease of the entire vessel segment of the left circumflex artery (LCX). The mid segment of the LCX had a single discrete 50% stenosis. ? Right Coronary Artery There was mild diffuse disease of the entire vessel segment of the right coronary artery (RCA). ? There were multiple discrete 60% stenoses of the mid segment of the right posterior descending branch (RPDA) of the RCA. ? Ramus There was a 95% single discrete stenosis of the ostial segment of the ramus. ? Indication for Selected Procedures: Left ventricular Ejection Fraction was estimated at 25 percent. An intraaortic balloon pump was inserted for Prophylaxis, pre-heart surgery. ? Conclusions: * Three vessel coronary artery disease (LAD, LCX and RCA) * Elevated LVEDP. Assessment: 72 y.o. male w/ a h/o MARIA VICTORIA (on CPAP), DM2, COPD, HTN, HLD, GERD, and Hyperthyroid presenting with late STEMI. CT surgery is consulted for CABG tomorrow (07/07) for cath showing MVD (proximalLCx, Ramus, LAD) with LVEDP 38. IABP was placed to preserve coronary perfusion while awaiting CABG. (Per my reading of the SYNTAX trial, CABG is recommended for patients with left main disease, resulting in lower rates of major CV events such as , stroke, MT, repeat revascularization compared to PCI). In this setting we will continue heparin drop and hold plavix. He continues to be on titrated nitroprusside drip for HTN on initial presentation of 200s/130's. Today his arterial blood pressures have been stable in 90-130's/65-90. We will continue with nitroprosside and restart metoprolol today and monitor for goal of SBP<120. His breathing requirements have also improved, now on 2L NC. We will optimize diuresis with a goal of net negative 1- 2L in preparationfor his CABG. 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 #DM2 - continue glargine 14 units (28 at home) - insulin drip as BG 300s currently, will taper off in the next few hours - hold ISS while on insulin drip - hold metformin - f/u HAIC ?? #Home Meds - continue levothyroxine 175mcg - CPAP at night ?? # Routine - DVT PPx: heparin drip - Diet: Healthy heart diet, NPO at midnight for CABG tomorrow - Code Status: FULL - Dispo: CVCC Katty Hahn, M3 [facility] [place], [place] Cardiology S1 (Pager [phone]) Plan of Care - Stephanie Godoy RN - 07/06/2017 5:00 AM EST Problem: Patient Care Overview Goal: Plan of Care Review 07/06/17 0446 Coping/Psychosocial Plan Of Care Reviewed With patient;family Plan of Care Review Progress progress towards functional goals is fair OUTCOME EVALUATION NOTE: OUTCOME SUMMARY: Pt unable to sleep O/N d/t anxiety regarding upcoming surgery and IABP restrictions on mobility. Nipride and nitro gtts titrated off, target BP <140 by IABP. Remained 1:1 O/N, titrating heparin per protocol. O2 weaned to 2L via NC, tolerating well and did not require CPAP. Pt requested that Ocasio be deferred for hx of CAUTI, voiding in urinal without difficulty. 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 Pt and family updated on pt's status and expectation for CABG on Wednesday. PLAN MOVING FORWARD: Continue to monitor IABP, wean and remove when tolerated. Monitor hemodynamic status, control HTN. INDIVIDUALIZED FALL PREVENTION INTERVENTIONS: Patient-specific fall risk factors per assessment: [current deficits]: Restricted mobility d/t IABP,invasive monitoring Assistance [level of assistance required for transfers and ambulation]: On bedrest, requires staff assist Supervision [direct monitoring required during toileting and ADLs]: Standby Surveillance [continuous indirect monitoring]: Telemetry, pulse oximetry, purposeful hourly rounding Patient-specific fall prevention interventions for sensory deficits provided, if applicable: NA CPG GOAL OUTCOME EVALUATION: Skin: no sign of pressure related injury Problem: Skin Integrity Impairment, Risk/Actual (Adult) Goal: Identify Related Risk Factors and Signs and Symptoms Related risk factors and signs and symptoms are identified upon initiation of Human Response Clinical Practice Guideline (CPG) Outcome: Ongoing (Interventions Implemented as Appropriate) 07/06/17445 Skin Integrity Impairment, Risk/Actual Skin Integrity Impairment, Risk/Actual: Related Risk Factors age extremes;immobility;tissue perfusion impaired Problem: Intra-Aortic Balloon Pump (Adult) Goal: Signs and Symptoms of Listed Potential Problems Will be Absent, Minimized or Managed (Intra-Aortic Balloon Pump) Signs and symptoms of listed potential problems will be absent, minimized or managed by discharge/transition of care (reference Intra-Aortic Balloon Pump (Adult) CPG). Outcome: Ongoing (Interventions Implemented as Appropriate) 07/06/17445 Intra-Aortic Balloon Pump Problems Assessed (Intra-Aortic Balloon Pump) all Problems Present (Intra-Aortic Balloon Pump) none Problem: Cardiac: ACS (Acute Coronary Syndrome) (Adult) Goal: Signs and Symptoms of Listed Potential Problems Will be Absent, Minimized or Managed (Cardiac:ACS) Signs and symptoms of listed potential problems will be absent, minimized or managed by discharge/transition of care (reference Cardiac: ACS (Acute Coronary Syndrome) (Adult) CPG). Outcome: Ongoing (Interventions Implemented as Appropriate) 07/06/17445 Cardiac: ACS (Acute Coronary Syndrome) Problems Assessed (Acute Coronary Syndrome (ACS)) all Problems Present (Acute Coronary Syndrome (ACS)) none Consult Note - Angela Escalera RT - 07/05/2017 10:14 PM EST Saw patient this evening for CPAP consult. We discussed his home settings which he did not remember.We discussed starting Vset Auto Titrating to which he replied he would rather not use CPAP or BIPAP as the nasal cannula was doing a good job. I discussed with him the difference between the two and how oxygen does not prevent or treat obstructions. He admits that he does not wear it every night at home. He remained adamant that did not want to wear it tonight. I asked him if he would be open to readdressing the conversation if he has any desaturations overnight and he was agreeable to having thediscussion at that time. Plan of Care - Kim Galindo MD - 07/05/2017 5:52 PM EST Images from the original note were not included. 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 The planned procedure, its benefits and risks, and alternatives were discussed with the patient. Thepatient consented to the procedure. documented in this encounter Plan of Treatment Upcoming Encounters Date Type Specialty Care Team Description 02/19/2022 Laboratory Appointment Lab 02/19/2022 Office Visit Cardiology Liz Poole PA [facility] Cardiology Dept [place], [place] [address] (Wo rk) 03/12/2022 Office Visit Cardiology Vitaliy Nobles MD [facility] CARDIOLOGY [place], [place] [address] (Wo rk) Scheduled Orders Name Type Priority Associated Diagnoses Order S chedule EKG 12 Lead ECG Routine S/P CABG x 3 Expected: 08/14, Expires: 02/13/2018 Scheduled Referrals Name Type Priority Associated Diagnoses Order S chedule Referral to Outpatient Referral Routine S/P CABG x 3 Ordered: Cardiac Rehab 07/14/2017 documented as of this encounter Procedures Procedure Name Priority Date/Time Associated Comments Diagnosis LAB SCAN 07/15/2017 12:00 Results for this AM EST procedure are i n the results section. EIGHT ARM OPERATOR SCAN 07/15/2017 12:00 Res ults for this AM EST procedure are i n the results section. POCT GLUCOSE Routine 07/14/2017 11:56 Results for this AM EST procedure are i n the results section. POCT GLUCOSE Routine 07/14/2017 7:52 Results for this AM EST procedure are i n the results section. PROTHROMBIN TIME Routine 07/14/2017 4:46 Results for this AM EST procedure are i n the results section. POTASSIUM Routine 07/14/2017 4:46 Results for this AM EST procedure are i n the results section. POCT GLUCOSE Routine 07/14/2017 4:34 Results for this AM EST procedure are i n the results section. POCT GLUCOSE Routine 07/13/2017 11:33 Results for this PM EST procedure are i n the results section. POCT GLUCOSE Routine 07/13/2017 9:25 Results for this PM EST procedure are i n the results section. POCT GLUCOSE Routine 07/13/2017 4:55 Results for this PM EST procedure are i n the results section. POCT GLUCOSE Routine 07/13/2017 11:16 Results for this AM EST procedure are i n the results section. POCT GLUCOSE Routine 07/13/2017 8:07 Results for this AM EST procedure are i n the results section. PROTHROMBIN TIME Routine 07/13/2017 4:26 Results for this AM EST procedure are i n the results section. BASIC METABOLIC PANEL Routine 07/13/2017 4:26 Res ults for this (NON-FASTING) AM EST procedure are in the results section. POCT GLUCOSE Routine 07/13/2017 3:52 Results for this AM EST procedure are i n the results section. POCT GLUCOSE Routine 07/13/2017 12:21 Results for this AM EST procedure are i n the results section. POCT GLUCOSE Routine 07/12/2017 8:22 Results for this PM EST procedure are i n the results section. POCT GLUCOSE Routine 07/12/2017 4:02 Results for this PM EST procedure are i n the results section. POCT GLUCOSE Routine 07/12/2017 11:28 Results for this AM EST procedure are i n the results section. POCT GLUCOSE Routine 07/12/2017 7:34 Results for this AM EST procedure are i n the results section. PROTHROMBIN TIME Routine 07/12/2017 4:11 Results for this AM EST procedure are i n the results section. POTASSIUM Routine 07/12/2017 4:11 Results for this AM EST procedure are i n the results section. BASIC METABOLIC PANEL STAT 07/12/2017 4:11 Res ults for this (NON-FASTING) AM EST procedure are in the results section. POCT GLUCOSE Routine 07/12/2017 4:10 Results for this AM EST procedure are i n the results section. POCT GLUCOSE Routine 07/11/2017 11:57 Results for this PM EST procedure are i n the results section. POCT GLUCOSE Routine 07/11/2017 8:32 Results for this PM EST procedure are i n the results section. XR CHEST PA AND LATERAL Routine 07/11/2017 5:27 R esults for this PM EST procedure are i n the results section. POCT GLUCOSE Routine 07/11/2017 4:05 Results for this PM EST procedure are i n the results section. POCT GLUCOSE Routine 07/11/2017 11:55 Results for this AM EST procedure are i n the results section. POCT GLUCOSE Routine 07/11/2017 7:53 Results for this AM EST procedure are i n the results section. POCT GLUCOSE Routine 07/11/2017 4:22 Results for this AM EST procedure are i n the results section. POTASSIUM Routine 07/11/2017 2:20 Results for this AM EST procedure are i n the results section. POCT GLUCOSE Routine 07/11/2017 12:17 Results for this AM EST procedure are i n the results section. POCT GLUCOSE Routine 07/10/2017 8:47 Results for this PM EST procedure are i n the results section. POCT GLUCOSE Routine 07/10/2017 4:06 Results for this PM EST procedure are i n the results section. POCT GLUCOSE Routine 07/10/2017 3:08 Results for this PM EST procedure are i n the results section. POCT GLUCOSE Routine 07/10/2017 2:25 Results for this PM EST procedure are i n the results section. POCT GLUCOSE Routine 07/10/2017 1:23 Results for this PM EST procedure are i n the results section. POCT GLUCOSE Routine 07/10/2017 11:52 Results for this AM EST procedure are i n the results section. POCT GLUCOSE Routine 07/10/2017 11:01 Results for this AM EST procedure are i n the results section. POCT GLUCOSE Routine 07/10/2017 9:54 Results for this AM EST procedure are i n the results section. POCT GLUCOSE Routine 07/10/2017 8:58 Results for this AM EST procedure are i n the results section. POCT GLUCOSE Routine 07/10/2017 8:01 Results for this AM EST procedure are i n the results section. POCT GLUCOSE Routine 07/10/2017 7:05 Results for this AM EST procedure are i n the results section. POCT GLUCOSE Routine 07/10/2017 6:00 Results for this AM EST procedure are i n the results section. HEMOGRAM Routine 07/10/2017 4:28 Results for this AM EST procedure are i n the results section. DIFFERENTIAL, AUTOMATED Routine 07/10/2017 4:28 R esults for this AM EST procedure are i n the results section. CBC (WITH DIFF) Routine 07/10/2017 4:28 AM EST BASIC METABOLIC PANEL Routine 07/10/2017 4:28 Res ults for this (NON-FASTING) AM EST procedure are in the results section. POCT GLUCOSE Routine 07/10/2017 4:26 Results for this AM EST procedure are i n the results section. POCT GLUCOSE Routine 07/10/2017 3:06 Results for this AM EST procedure are i n the results section. POCT GLUCOSE Routine 07/10/2017 2:10 Results for this AM EST procedure are i n the results section. POCT GLUCOSE Routine 07/10/2017 1:09 Results for this AM EST procedure are i n the results section. POCT GLUCOSE Routine 07/10/2017 12:10 Results for this AM EST procedure are i n the results section. POCT GLUCOSE Routine 07/09/2017 11:01 Results for this PM EST procedure are i n the results section. POCT GLUCOSE Routine 07/09/2017 10:05 Results for this PM EST procedure are i n the results section. POCT GLUCOSE Routine 07/09/2017 9:31 Results for this PM EST procedure are i n the results section. POCT GLUCOSE Routine 07/09/2017 9:03 Results for this PM EST procedure are i n the results section. POCT GLUCOSE Routine 07/09/2017 8:09 Results for this PM EST procedure are i n the results section. POCT GLUCOSE Routine 07/09/2017 5:40 Results for this PM EST procedure are i n the results section. POCT GLUCOSE Routine 07/09/2017 4:24 Results for this PM EST procedure are i n the results section. POCT GLUCOSE Routine 07/09/2017 3:19 Results for this PM EST procedure are i n the results section. POCT GLUCOSE Routine 07/09/2017 2:26 Results for this PM EST procedure are i n the results section. POCT GLUCOSE Routine 07/09/2017 1:29 Results for this PM EST procedure are i n the results section. POCT GLUCOSE Routine 07/09/2017 12:20 Results for this PM EST procedure are i n the results section. POCT GLUCOSE Routine 07/09/2017 11:24 Results for this AM EST procedure are i n the results section. POCT GLUCOSE Routine 07/09/2017 11:11 Results for this AM EST procedure are i n the results section. POCT GLUCOSE Routine 07/09/2017 10:08 Results for this AM EST procedure are i n the results section. POCT GLUCOSE Routine 07/09/2017 8:02 Results for this AM EST procedure are i n the results section. BLOOD GAS 2 ARTERIAL Routine 07/09/2017 5:37 Resu lts for this AM EST procedure are i n the results section. POCT GLUCOSE Routine 07/09/2017 3:27 Results for this AM EST procedure are i n the results section. HEMOGRAM Routine 07/09/2017 2:30 Results for this AM EST procedure are i n the results section. POTASSIUM Routine 07/09/2017 2:30 Results for this AM EST procedure are i n the results section. BASIC METABOLIC PANEL Routine 07/09/2017 2:30 Res ults for this (NON-FASTING) AM EST procedure are in the results section. POCT GLUCOSE Routine 07/09/2017 2:10 Results for this AM EST procedure are i n the results section. POCT GLUCOSE Routine 07/09/2017 1:01 Results for this AM EST procedure are i n the results section. BLOOD CULTURE STAT 07/09/2017 12:40 Results fo r this AM EST procedure are i n the results section. BLOOD CULTURE STAT 07/09/2017 12:30 Results fo r this AM EST procedure are i n the results section. URINALYSIS MICROSCOPIC Routine 07/09/2017 12:05 R esults for this EXAM AM EST procedure are i n the results section. URINALYSIS WITH REFLEX Routine 07/09/2017 12:05 R esults for this CULTURE AM EST procedure are i n the results section. POCT GLUCOSE Routine 07/08/2017 11:01 Results for this PM EST procedure are i n the results section. POCT GLUCOSE Routine 07/08/2017 10:04 Results for this PM EST procedure are i n the results section. PREPARE ALBUMIN 5% IN Routine 07/08/2017 8:49 Res ults for this 250 ML PM EST procedure are i n the results section. POCT GLUCOSE Routine 07/08/2017 8:28 Results for this PM EST procedure are i n the results section. POCT GLUCOSE Routine 07/08/2017 7:13 Results for this PM EST procedure are i n the results section. POCT GLUCOSE Routine 07/08/2017 5:04 Results for this PM EST procedure are i n the results section. BLOOD GAS 2 ARTERIAL Routine 07/08/2017 4:13 Resu lts for this PM EST procedure are i n the results section. POCT GLUCOSE Routine 07/08/2017 4:01 Results for this PM EST procedure are i n the results section. POCT GLUCOSE Routine 07/08/2017 3:21 Results for this PM EST procedure are i n the results section. POCT GLUCOSE Routine 07/08/2017 2:01 Results for this PM EST procedure are i n the results section. POCT GLUCOSE Routine 07/08/2017 11:53 Results for this AM EST procedure are i n the results section. POCT GLUCOSE Routine 07/08/2017 11:04 Results for this AM EST procedure are i n the results section. POCT GLUCOSE Routine 07/08/2017 9:24 Results for this AM EST procedure are i n the results section. APTT Routine 07/08/2017 8:40 Results for this AM EST procedure are i n the results section. PROTHROMBIN TIME Routine 07/08/2017 8:40 Results for this AM EST procedure are i n the results section. POCT GLUCOSE Routine 07/08/2017 7:38 Results for this AM EST procedure are i n the results section. POCT GLUCOSE Routine 07/08/2017 7:07 Results for this AM EST procedure are i n the results section. POCT GLUCOSE Routine 07/08/2017 6:04 Results for this AM EST procedure are i n the results section. POCT GLUCOSE Routine 07/08/2017 5:31 Results for this AM EST procedure are i n the results section. POCT GLUCOSE Routine 07/08/2017 4:52 Results for this AM EST procedure are i n the results section. BLOOD GAS 2 ARTERIAL Routine 07/08/2017 4:04 Resu lts for this AM EST procedure are i n the results section. SCAN, PERIPHERAL BLOOD Routine 07/08/2017 4:00 Re sults for this AM EST procedure are i n the results section. HEMOGRAM Routine 07/08/2017 4:00 Results for this AM EST procedure are i n the results section. DIFFERENTIAL, AUTOMATED Routine 07/08/2017 4:00 R esults for this AM EST procedure are i n the results section. CARDIAC ENZYMES Routine 07/08/2017 4:00 Results f or this ([facility]) AM EST procedure are i n the results section. CREATININE Routine 07/08/2017 4:00 Results for this AM EST procedure are i n the results section. CBC (WITH DIFF) Routine 07/08/2017 4:00 AM EST BUN Routine 07/08/2017 4:00 Results for this AM EST procedure are i n the results section. GLUCOSE, FASTING Routine 07/08/2017 4:00 Results for this AM EST procedure are i n the results section. ELECTROLYTES PANEL Routine 07/08/2017 4:00 Result s for this AM EST procedure are i n the results section. POCT GLUCOSE Routine 07/08/2017 3:00 Results for this AM EST procedure are i n the results section. POCT GLUCOSE Routine 07/08/2017 1:57 Results for this AM EST procedure are i n the results section. POCT GLUCOSE Routine 07/08/2017 1:01 Results for this AM EST procedure are i n the results section. BLOOD GAS 2 ARTERIAL Routine 07/08/2017 12:09 Res ults for this AM EST procedure are i n the results section. POCT GLUCOSE Routine 07/07/2017 10:56 Results for this PM EST procedure are i n the results section. BLOOD GAS 2 ARTERIAL Routine 07/07/2017 10:04 Res ults for this PM EST procedure are i n the results section. HEMOGLOBIN Routine 07/07/2017 10:00 Results for this PM EST procedure are i n the results section. POTASSIUM Routine 07/07/2017 10:00 Results for this PM EST procedure are i n the results section. POCT GLUCOSE Routine 07/07/2017 8:49 Results for this PM EST procedure are i n the results section. PREPARE ALBUMIN 5% IN Routine 07/07/2017 8:03 Res ults for this 250 ML PM EST procedure are i n the results section. EKG 12-LEAD STAT 07/07/2017 7:17 S/P CABG x 3 Results for this PM EST procedure are i n the results section. XR CHEST ONE VIEW STAT 07/07/2017 7:12 Results for this PM EST procedure are i n the results section. BLOOD GAS 2 ARTERIAL Routine 07/07/2017 6:57 Resu lts for this PM EST procedure are i n the results section. BLOOD GAS 2 ARTERIAL Routine 07/07/2017 5:31 Resu lts for this PM EST procedure are i n the results section. HEMOGRAM STAT 07/07/2017 5:30 Results for this PM EST procedure are i n the results section. APTT STAT 07/07/2017 5:30 Results for this PM EST procedure are i n the results section. PROTHROMBIN TIME STAT 07/07/2017 5:30 Results for this PM EST procedure are i n the results section. FIBRINOGEN STAT 07/07/2017 5:30 Results for this PM EST procedure are i n the results section. PREPARE PLATELETS, STAT 07/07/2017 5:00 Result s for this APHERESIS PM EST procedure are i n the results section. HEMOGLOBIN AND STAT 07/07/2017 4:55 Results fo r this HEMATOCRIT, BLOOD PM EST procedure are in the results section. PLATELET COUNT STAT 07/07/2017 4:55 Results fo r this PM EST procedure are i n the results section. BLOOD GAS 2 ARTERIAL Routine 07/07/2017 4:38 Resu lts for this PM EST procedure are i n the results section. BLOOD GAS 2 VENOUS Routine 07/07/2017 4:06 Result s for this PM EST procedure are i n the results section. BLOOD GAS 2 ARTERIAL Routine 07/07/2017 4:05 Resu lts for this PM EST procedure are i n the results section. BLOOD GAS 2 ARTERIAL Routine 07/07/2017 2:29 Resu lts for this PM EST procedure are i n the results section. ENDOSCOPIC HARVEST Yes 07/07/2017 1:35 CAD VEIN(S) FOR CABG (VU PM EST 0.31) @CABG, TWO VENOUS GRAFTS Yes 07/07/2017 1:35 CAD & ARTERIAL GRAFT ([facility] PM EST 7.93) @CABG, USING ARTERIAL Yes 07/07/2017 1:35 CAD GRAFT;SINGLE ARTERIAL PM EST GRAFT (VU 33.75) PREPARE COAG FACTORS STAT 07/07/2017 1:25 Resu lts for this (NON-HEMOPHILIA) PM EST procedure a re in the results section. PREPARE RBC STAT 07/07/2017 1:10 Results for this PM EST procedure are i n the results section. POCT GLUCOSE Routine 07/07/2017 11:56 Results for this AM EST procedure are i n the results section. POCT GLUCOSE Routine 07/07/2017 11:05 Results for this AM EST procedure are i n the results section. POCT GLUCOSE Routine 07/07/2017 10:02 Results for this AM EST procedure are i n the results section. POCT GLUCOSE Routine 07/07/2017 7:53 Results for this AM EST procedure are i n the results section. POCT GLUCOSE Routine 07/07/2017 7:03 Results for this AM EST procedure are i n the results section. POCT GLUCOSE Routine 07/07/2017 6:17 Results for this AM EST procedure are i n the results section. HEMOGRAM Routine 07/07/2017 5:15 Results for this AM EST procedure are i n the results section. DIFFERENTIAL, AUTOMATED Routine 07/07/2017 5:15 R esults for this AM EST procedure are i n the results section. CARDIAC ENZYMES Routine 07/07/2017 5:15 Results f or this ([facility]) AM EST procedure are i n the results section. APTT STAT 07/07/2017 5:15 Results for this AM EST procedure are i n the results section. CBC (WITH DIFF) Routine 07/07/2017 5:15 AM EST MAGNESIUM Timed 07/07/2017 5:15 Results for this AM EST procedure are i n the results section. BASIC METABOLIC PANEL Routine 07/07/2017 5:15 Res ults for this (NON-FASTING) AM EST procedure are in the results section. POCT GLUCOSE Routine 07/07/2017 5:01 Results for this AM EST procedure are i n the results section. POCT GLUCOSE Routine 07/07/2017 4:08 Results for this AM EST procedure are i n the results section. POCT GLUCOSE Routine 07/07/2017 3:03 Results for this AM EST procedure are i n the results section. POCT GLUCOSE Routine 07/07/2017 2:08 Results for this AM EST procedure are i n the results section. POCT GLUCOSE Routine 07/07/2017 1:31 Results for this AM EST procedure are i n the results section. XR CHEST ONE VIEW Routine 07/07/2017 1:27 Results for this AM EST procedure are i n the results section. POCT GLUCOSE Routine 07/07/2017 12:07 Results for this AM EST procedure are i n the results section. APTT STAT 07/07/2017 12:00 Results for this AM EST procedure are i n the results section. POCT GLUCOSE Routine 07/06/2017 9:55 Results for this PM EST procedure are i n the results section. POCT GLUCOSE Routine 07/06/2017 9:04 Results for this PM EST procedure are i n the results section. POCT GLUCOSE Routine 07/06/2017 7:45 Results for this PM EST procedure are i n the results section. CARDIAC ENZYMES Routine 07/06/2017 7:40 Results f or this ([facility]) PM EST procedure are i n the results section. POTASSIUM Routine 07/06/2017 7:40 Results for this PM EST procedure are i n the results section. POCT GLUCOSE Routine 07/06/2017 7:13 Results for this PM EST procedure are i n the results section. APTT STAT 07/06/2017 6:15 Results for this PM EST procedure are i n the results section. POCT GLUCOSE Routine 07/06/2017 6:03 Results for this PM EST procedure are i n the results section. POCT GLUCOSE Routine 07/06/2017 5:01 Results for this PM EST procedure are i n the results section. POCT GLUCOSE Routine 07/06/2017 4:06 Results for this PM EST procedure are i n the results section. POCT GLUCOSE Routine 07/06/2017 2:59 Results for this PM EST procedure are i n the results section. CARDIAC ENZYMES Timed 07/06/2017 2:10 Results f or this ([facility]) PM EST procedure are i n the results section. POCT GLUCOSE Routine 07/06/2017 2:08 Results for this PM EST procedure are i n the results section. POCT GLUCOSE Routine 07/06/2017 1:04 Results for this PM EST procedure are i n the results section. POCT GLUCOSE Routine 07/06/2017 12:05 Results for this PM EST procedure are i n the results section. EKG 12-LEAD Routine 07/06/2017 12:00 Non-ST elevation Results for this PM EST myocardial procedure are i n infarction the results (NSTEMI) section. ABORH RECHECK STATUS Routine 07/06/2017 12:00 Res ults for this PM EST procedure are i n the results section. ABO/RH TYPING Routine 07/06/2017 12:00 Results fo r this PM EST procedure are i n the results section. ANTIBODY SCREEN Routine 07/06/2017 12:00 Results for this PM EST procedure are i n the results section. TYPE AND SCREEN Routine 07/06/2017 12:00 ([facility]) PM EST APTT STAT 07/06/2017 11:24 Results for this AM EST procedure are i n the results section. PROTHROMBIN TIME Routine 07/06/2017 11:24 Results for this AM EST procedure are i n the results section. POCT GLUCOSE Routine 07/06/2017 11:02 Results for this AM EST procedure are i n the results section. POCT GLUCOSE Routine 07/06/2017 10:18 Results for this AM EST procedure are i n the results section. POCT GLUCOSE Routine 07/06/2017 9:25 Results for this AM EST procedure are i n the results section. CARDIAC ENZYMES Routine 07/06/2017 8:10 Results f or this ([facility]) AM EST procedure are i n the results section. MAGNESIUM Timed 07/06/2017 8:10 Results for this AM EST procedure are i n the results section. BASIC METABOLIC PANEL Routine 07/06/2017 8:10 Res ults for this (NON-FASTING) AM EST procedure are in the results section. POCT GLUCOSE Routine 07/06/2017 7:34 Results for this AM EST procedure are i n the results section. POCT GLUCOSE Routine 07/06/2017 7:03 Results for this AM EST procedure are i n the results section. XR CHEST ONE VIEW Routine 07/06/2017 6:34 Results for this AM EST procedure are i n the results section. POCT GLUCOSE Routine 07/06/2017 6:21 Results for this AM EST procedure are i n the results section. POCT GLUCOSE Routine 07/06/2017 5:08 Results for this AM EST procedure are i n the results section. POCT GLUCOSE Routine 07/06/2017 4:05 Results for this AM EST procedure are i n the results section. POCT GLUCOSE Routine 07/06/2017 3:00 Results for this AM EST procedure are i n the results section. POCT GLUCOSE Routine 07/06/2017 2:20 Results for this AM EST procedure are i n the results section. HEMOGRAM Routine 07/06/2017 2:20 Results for this AM EST procedure are i n the results section. DIFFERENTIAL, AUTOMATED Routine 07/06/2017 2:20 R esults for this AM EST procedure are i n the results section. CARDIAC ENZYMES Routine 07/06/2017 2:20 Results f or this ([facility]) AM EST procedure are i n the results section. APTT STAT 07/06/2017 2:20 Results for this AM EST procedure are i n the results section. CBC (WITH DIFF) Routine 07/06/2017 2:20 AM EST POTASSIUM Routine 07/06/2017 2:20 Results for this AM EST procedure are i n the results section. HEMOGLOBIN A1C Routine 07/06/2017 2:20 Results fo r this AM EST procedure are i n the results section. LIPID PANEL (REFLEX Routine 07/06/2017 2:20 Resul ts for this DIRECT LDL) AM EST procedure are i n the results section. POCT GLUCOSE Routine 07/06/2017 1:09 Results for this AM EST procedure are i n the results section. POCT GLUCOSE Routine 07/06/2017 12:06 Results for this AM EST procedure are i n the results section. POCT GLUCOSE Routine 07/05/2017 10:56 Results for this PM EST procedure are i n the results section. POCT GLUCOSE Routine 07/05/2017 10:05 Results for this PM EST procedure are i n the results section. POCT GLUCOSE Routine 07/05/2017 9:02 Results for this PM EST procedure are i n the results section. XR CHEST ONE VIEW Routine 07/05/2017 8:55 Results for this PM EST procedure are i n the results section. EKG 12-LEAD Routine 07/05/2017 8:39 Results for this PM EST procedure are i n the results section. HEMOGRAM Routine 07/05/2017 8:20 Results for this PM EST procedure are i n the results section. DIFFERENTIAL, AUTOMATED Routine 07/05/2017 8:20 R esults for this PM EST procedure are i n the results section. CARDIAC ENZYMES Routine 07/05/2017 8:20 Results f or this ([facility]) PM EST procedure are i n the results section. APTT STAT 07/05/2017 8:20 Results for this PM EST procedure are i n the results section. CBC (WITH DIFF) Routine 07/05/2017 8:20 PM EST MAGNESIUM Routine 07/05/2017 8:20 Results for this PM EST procedure are i n the results section. BASIC METABOLIC PANEL Routine 07/05/2017 8:20 Res ults for this (NON-FASTING) PM EST procedure are in the results section. POCT GLUCOSE Routine 07/05/2017 7:32 Results for this PM EST procedure are i n the results section. CARDIAC CATHETERIZATION Routine 07/05/2017 6:47 R esults for this PM EST procedure are i n the results section. ECHOCARDIOGRAM COMPLETE Routine 07/05/2017 6:21 Non-ST elevati on Results for this W CONTRAST PM EST myocardial procedure are i n infarction the results (NSTEMI) section. HEMOGRAM Routine 07/05/2017 4:55 Results for this PM EST procedure are i n the results section. DIFFERENTIAL, AUTOMATED Routine 07/05/2017 4:55 R esults for this PM EST procedure are i n the results section. CARDIAC ENZYMES Timed 07/05/2017 4:55 Results f or this ([facility]) PM EST procedure are i n the results section. APTT STAT 07/05/2017 4:55 Results for this PM EST procedure are i n the results section. CBC (WITH DIFF) Routine 07/05/2017 4:55 PM EST PRO-BRAIN NATRIURETIC Routine 07/05/2017 4:55 Res ults for this PEPTIDE PM EST procedure are i n the results section. MAGNESIUM Routine 07/05/2017 4:55 Results for this PM EST procedure are i n the results section. BASIC METABOLIC PANEL Routine 07/05/2017 4:55 Res ults for this (NON-FASTING) PM EST procedure are in the results section. POCT GLUCOSE Routine 07/05/2017 4:53 Results for this PM EST procedure are i n the results section. EKG 12-LEAD Routine 07/05/2017 4:32 Non-ST elevation Results for this PM EST myocardial procedure are i n infarction the results (NSTEMI) section. documented in this encounter Results XR [...] Michelle Monaco at 08/19/2017 10:30 AM Martha Teague HOME DEMONSTRATION AGENT IMG DX ORDERABLES SCAN DOC: EIGHT ARM OPERATOR (07/15/2017 12:00 AM EST) Narrative 07/15/2017 12:00 AM EST This result has an attachment that is no t available. Ordered by an unspecified provider. Scanning Provider MEDIA MGR SCAN EXT ORDR/RSLT SCAN DOC: LAB (07/15/2017 12:00 AM EST) Narrative 07/15/2017 12:00 AM EST This result has an attachment that is no t available. Ordered by an unspecified provider. Scanning Provider MEDIA MGR SCAN EXT ORDR/RSLT POCT Glucose (07/14/2017 11:56 AM EST) athologist Signature POC Glucose 186 65 - 199 [facility] Comment: Supplemental ranges: <140 mg/dL before meals <180 mg/dL all other times of the day Specimen Anatomical Collection Method Collection Time Receive d Time (Source) Location / / Volume Laterality Blood specimen 07/14/2017 11:56 7 (specimen) AM EST 11:56 AM EST Yuan Webber MD POINT OF CARE TEST ORDERABLE S Performing Organization Address City/State/[place] [address] POCT Glucose (07/14/2017 7:52 AM EST) athologist Signature POC Glucose 126 65 - 199 [facility] mg/dL [facility] Comment: Supplemental ranges: <140 mg/dL before meals <180 mg/dL all other times of the day Specimen Anatomical Collection Method Collection Time Receive d Time (Source) Location / / Volume Laterality Blood specimen 07/14/2017 7:52 AM 017 7:52 (specimen) EST AM EST Yuan Webber MD POINT OF CARE TEST ORDERABLE S Performing Organization Address City/State/[place] [address] (ABNORMAL) Prothrombin Time (07/14/2017 4:46 AM EST) athologist Signature PT 26.4 (H) 11.8 - 14.0 [facility] LABORATORY INR 2.4 (H) 0.9 - 1.1 [facility] Comment: An INR <2.0 [...] Location / / Volume Laterality Blood specimen 07/14/2017 4:46 AM 017 5:14 (specimen) EST AM EST Resulting Agency Comment Spec In Lab Makayla Wilson APRN HEMATOLOGY ORDERABLES Performing Organization Address City/[facility]/[place] [address] Potassium (07/14/2017 4:46 AM EST) athologist Signature Potassium 4.3 3.5 - 5.0 [facility] mmol/L [facility] Comment: Please note: ??Patients with WBC >100,00 0 may have falsely elevated Potassium levels. ??For accurate Potassium quantif ication in these patients send serum separator tube (gold top) for subsequent determinations. ??Contact the Clinical Chemistry Laboratory if there are any qu estions. Specimen Anatomical Collection Method Collection Time Receive d Time (Source) Location / / Volume Laterality Blood specimen 07/14/2017 4:46 AM 017 5:14 (specimen) EST AM EST Resulting Agency Comment Spec In Lab Makayla Wilson APRN CHEMISTRY ORDERABLES Performing Organization Address City/[facility]/[place] [address] POCT Glucose (07/14/2017 4:34 AM EST) athologist Signature POC Glucose 115 65 - 199 [facility] mg/dL [facility] Comment: Supplemental ranges: <140 mg/dL before meals <180 mg/dL all other times of the day Specimen Anatomical Collection Method Collection Time Receive d Time (Source) Location / / Volume Laterality Blood specimen 07/14/2017 4:34 AM 017 4:34 (specimen) EST AM EST Yuan Webber MD POINT OF CARE TEST ORDERABLE S Performing Organization Address City/[facility]/ZIP Code Phon e Number [address] POCT Glucose (07/13/2017 11:33 PM EST) athologist Signature POC Glucose 132 65 - 199 [facility] mg[facility]dL [facility] Comment: Supplemental ranges: <140 mg/dL before meals <180 mg/dL all other times of the day Specimen Anatomical Collection Method Collection Time Receive d Time (Source) Location / / Volume Laterality Blood specimen 07/13/2017 11:33 7 (specimen) PM EST 11:33 PM EST Yuan Webber MD POINT OF CARE TEST ORDERABLE S Performing Organization Address City/State/ZIP Code Phon e Number [address] POCT Glucose (07/13/2017 9:25 PM EST) athologist Signature POC Glucose 121 65 - 199 [facility] mg/dL [facility] Comment: Supplemental ranges: <140 mg/dL before meals <180 mg/dL all other times of the day Specimen Anatomical Collection Method Collection Time Receive d Time (Source) Location / / Volume Laterality Blood specimen 07/13/2017 9:25 PM 017 9:25 (specimen) EST PM EST Yuan Webber MD POINT OF CARE TEST ORDERABLE S Performing Organization Address City/State/[place] [address] POCT Glucose (07/13/2017 4:55 PM EST) athologist Signature POC Glucose 79 65 - 199 [facility] mg/dL [facility] Comment: Supplemental ranges: <140 mg/dL before meals <180 mg/dL all other times of the day Specimen Anatomical Collection Method Collection Time Receive d Time (Source) Location / / Volume Laterality Blood specimen 07/13/2017 4:55 PM 017 4:55 (specimen) EST PM EST Yuan Webber MD POINT OF CARE TEST ORDERABLE S Performing Organization Address City/State/[place] [address] POCT Glucose (07/13/2017 11:16 AM EST) athologist Signature POC Glucose 163 65 - 199 [facility] mg/dL [facility] Comment: Supplemental ranges: <140 mg/dL before meals <180 mg/dL all other times of the day Specimen Anatomical Collection Method Collection Time Receive d Time (Source) Location / / Volume Laterality Blood specimen 07/13/2017 11:16 7 (specimen) AM EST 11:16 AM EST Yuan Webber MD POINT OF CARE TEST ORDERABLE S Performing Organization Address City/[facility]/[place] [address] POCT Glucose (07/13/2017 8:07 AM EST) P athologist Signature POC Glucose 96 65 - 199 [facility] mg/dL [facility] Comment: Supplemental ranges: <140 mg/dL before meals <180 mg/dL all other times of the day Specimen Anatomical Collection Method Collection Time Receive d Time (Source) Location / / Volume Laterality Blood specimen 07/13/2017 8:07 AM 017 8:07 (specimen) EST AM EST Yuan Webber MD POINT OF CARE TEST ORDERABLE S Performing Organization Address City/[facility]/[place] [address] (ABNORMAL) Prothrombin Time (07/13/2017 4:26 AM EST) P athologist Signature PT 20.8 (H) 11.8 - 14.0 [facility] LABORATORY INR 1.8 (H) 0.9 - 1.1 [facility] Comment: An INR <2.0 [...] Location / / Volume Laterality Blood specimen 07/13/2017 4:26 AM 017 4:46 (specimen) EST AM EST Resulting Agency Comment Spec In Lab Makayla Wilson APRN HEMATOLOGY ORDERABLES Performing Organization Address City/[facility]/[place] [address] (ABNORMAL) Basic Metabolic Panel (non-fasting) (07/13/2017 4:26 AM EST) athologist Signature Glucose Lvl 95 65 - 199 [facility] mg/dL [facility] Comment: Diabetes: >=200 mg/dL plus symp toms BUN 25 (H) 10 - 20 mg/dL [facility] Creatinine 1.19 0.80 - 1.50 mg/dL [facility] Sodium 143 135 - 145 mmol/L [facility] Potassium 3.7 3.5 - 5.0 mmol/L [facility] Comment: Please note: ??Patients with WBC >100,00 0 may have falsely elevated Potassium levels. ??For accurate Potassium quantif ication in these patients send serum separator tube (gold top) for subsequent determinations. ??Contact the Clinical Chemistry Laboratory if there are any qu estions. Chloride 104 98 - 107 mmol/L [facility] CO2 26 22 - 31 mmol/L [facility] Anion Gap 13 5 - 15 mmol/L [facility] Calcium 7.7 (L) 8.5 - 10.5 mg/dL [facility] Estimated GFR 60 >=60 [facility] Comment: The reported eGFR should be multiplied b y 1.2 for patients. The MDRD is not an appropriate measure o f renal function for patients with body mass extremes or in patients with acute kidney failure. http://[employer]/DHnkdep http://[employer]/DHMCnkf Specimen Anatomical Collection Method Collection Time Receive d Time (Source) Location / / Volume Laterality Blood specimen 07/13/2017 4:26 AM 017 4:46 (specimen) EST AM EST Resulting Agency Comment Spec In Lab Makayla Wilson APRN CHEMISTRY ORDERABLES Performing Organization Address City/State/[place] [address] POCT Glucose (07/13/2017 3:52 AM EST) athologist Signature POC Glucose 93 65 - 199 [facility] mg/dL [facility] Comment: Supplemental ranges: <140 mg/dL before meals <180 mg/dL all other times of the day Specimen Anatomical Collection Method Collection Time Receive d Time (Source) Location / / Volume Laterality Blood specimen 07/13/2017 3:52 AM 017 3:52 (specimen) EST AM EST Yuan Webber MD POINT OF CARE TEST ORDERABLE S Performing Organization Address City/State/ZIP Code Phon e Number [address] POCT Glucose (07/13/2017 12:21 AM EST) athologist Signature POC Glucose 80 65 - 199 [facility] [place] mg/dL [facility] Comment: Supplemental ranges: <140 mg/dL before meals <180 mg/dL all other times of the day Specimen Anatomical Collection Method Collection Time Receive d Time (Source) Location / / Volume Laterality Blood specimen 07/13/2017 12:21 7 (specimen) AM EST 12:21 AM EST Yuan Webber MD POINT OF CARE TEST ORDERABLE S Performing Organization Address City/State/ZIP Code Phon e Number [address] POCT Glucose (07/12/2017 8:22 PM EST) athologist Signature POC Glucose 119 65 - 199 [facility] mg/dL [facility] Comment: Supplemental ranges: <140 mg/dL before meals <180 mg/dL all other times of the day Specimen Anatomical Collection Method Collection Time Receive d Time (Source) Location / / Volume Laterality Blood specimen 07/12/2017 8:22 PM 017 8:22 (specimen) EST PM EST Yuan Webber MD POINT OF CARE TEST ORDERABLE S Performing Organization Address City/State/ZIP Code Phon e Number [address] POCT Glucose (07/12/2017 4:02 PM EST) athologist Signature POC Glucose 114 65 - 199 [facility] Comment: Supplemental ranges: <140 mg/dL before meals <180 mg/dL all other times of the day Specimen Anatomical Collection Method Collection Time Receive d Time (Source) Location / / Volume Laterality Blood specimen 07/12/2017 4:02 PM 017 4:02 (specimen) EST PM EST Yuan Webber MD POINT OF CARE TEST ORDERABLE S Performing Organization Address City/State/ZIP Code Phon e Number [address] POCT Glucose (07/12/2017 11:28 AM EST) athologist Signature POC Glucose 164 65 - 199 [facility] Comment: Supplemental ranges: <140 mg/dL before meals <180 mg/dL all other times of the day Specimen Anatomical Collection Method Collection Time Receive d Time (Source) Location / / Volume Laterality Blood specimen 07/12/2017 11:28 7 (specimen) AM EST 11:28 AM EST Yuan Webber MD POINT OF CARE TEST ORDERABLE S Performing Organization Address City/State/ZIP Code Phon e Number [address] POCT Glucose (07/12/2017 7:34 AM EST) athologist Signature POC Glucose 109 65 - 199 [facility]dL [facility] Comment: Supplemental ranges: <140 mg/dL before meals <180 mg/dL all other times of the day Specimen Anatomical Collection Method Collection Time Receive d Time (Source) Location / / Volume Laterality Blood specimen 07/12/2017 7:34 AM 017 7:34 (specimen) EST AM EST Yuan Webber MD POINT OF CARE TEST ORDERABLE S Performing Organization Address City/State/[place] [address] (ABNORMAL) Basic Metabolic Panel (non-fasting) (07/12/2017 4:11 AM EST) athologist Signature Glucose Lvl 92 65 - 199 [facility] Comment: Diabetes: >=200 mg/dL plus symp toms BUN 31 (H) 10 - 20 mg/dL [facility] Creatinine 1.23 0.80 - 1.50 mg/dL [facility] Sodium 145 135 - 145 mmol/L [facility] Potassium Not Perf 3.5 - 5.0 mmol/L [facility] Comment: Duplicate order Please note: ??Patients with WBC >100,00 0 may have falsely elevated Potassium levels. ??For accurate Potassium quantif ication in these patients send serum separator tube (gold top) for subsequent determinations. ??Contact the Clinical Chemistry Laboratory if there are any qu estions. Chloride 106 98 - 107 mmol/L [facility] CO2 Not Perf 22 - 31 mmol/L [facility] Comment: Add-on request. Sample too old to perform test. Anion Gap Not Calculated 5 - 15 mmol/L [facility] Calcium 8.1 (L) 8.5 - 10.5 mg/dL [facility] Estimated GFR 58 (L) >=60 [facility] Comment: The reported eGFR should be multiplied b y 1.2 for patients. The MDRD is not an appropriate measure o f renal function for patients with body mass extremes or in patients with acute kidney failure. http://[employer]/DHnkdep http://[employer]/DHMCnkf Specimen Anatomical Collection Method Collection Time Receive d Time (Source) Location / / Volume Laterality Blood specimen 07/12/2017 4:11 AM 017 8:57 (specimen) EST AM EST Resulting Agency Comment Spec In Lab Makayla Katie QUINONES CHEMISTRY ORDERABLES Performing Organization Address City/State/[place] [address] (ABNORMAL) Prothrombin Time (07/12/2017 4:11 AM EST) P athologist Signature PT 15.4 (H) 11.8 - 14.0 [facility] LABORATORY INR 1.2 (H) 0.9 - 1.1 [facility] Comment: An INR <2.0 [...] Location / / Volume Laterality Blood specimen 07/12/2017 4:11 AM 017 4:36 (specimen) EST AM EST Resulting Agency Comment Spec In Lab Makayla Wilson STACIE HEMATOLOGY ORDERABLES Performing Organization Address City/[facility]/ZIP Code Phon e Number [address] Potassium (07/12/2017 4:11 AM EST) athologist Signature Potassium 3.8 3.5 - 5.0 [facility] mmol/L [facility] Comment: Please note: ??Patients with WBC >100,00 0 may have falsely elevated Potassium levels. ??For accurate Potassium quantif ication in these patients send serum separator tube (gold top) for subsequent determinations. ??Contact the Clinical Chemistry Laboratory if there are any qu estions. Specimen Anatomical Collection Method Collection Time Receive d Time (Source) Location / / Volume Laterality Blood specimen 07/12/2017 4:11 AM 017 4:36 (specimen) EST AM EST Resulting Agency Comment Spec In Lab Makayla Wilson STACIE CHEMISTRY ORDERABLES Performing Organization Address City/[facility]/[place] [address] POCT Glucose (07/12/2017 4:10 AM EST) athologist Signature POC Glucose 90 65 - 199 [facility] mg/dL [facility] Comment: Supplemental ranges: <140 mg/dL before meals <180 mg/dL all other times of the day Specimen Anatomical Collection Method Collection Time Receive d Time (Source) Location / / Volume Laterality Blood specimen 07/12/2017 4:10 AM 017 4:10 (specimen) EST AM EST Yuan Webber MD POINT OF CARE TEST ORDERABLE S Performing Organization Address City/State/[place] [address] POCT Glucose (07/11/2017 11:57 PM EST) athologist Signature POC Glucose 98 65 - 199 [facility] Comment: Supplemental ranges: <140 mg/dL before meals <180 mg/dL all other times of the day Specimen Anatomical Collection Method Collection Time Receive d Time (Source) Location / / Volume Laterality Blood specimen 07/11/2017 11:57 7 (specimen) PM EST 11:57 PM EST Yuan Webber MD POINT OF CARE TEST ORDERABLE S Performing Organization Address City/[facility]/[place] [address] POCT Glucose (07/11/2017 8:32 PM EST) athologist Signature POC Glucose 146 65 - 199 [facility] mg/dL [facility] Comment: Supplemental ranges: <140 mg/dL before meals <180 mg/dL all other times of the day Specimen Anatomical Collection Method Collection Time Receive d Time (Source) Location / / Volume Laterality Blood specimen 07/11/2017 8:32 PM 017 8:32 (specimen) EST PM EST Yuan Webber MD POINT OF CARE TEST ORDERABLE S Performing Organization Address City/State/[place] [address] XR Chest PA & Lateral (Generic) (07/11/2017 5:27 PM EST) Anatomical Region Laterality Modality Chest N/A Digital Radiography Specimen (Source) Anatomical Location Collection Method / Collectio n Time Received Time / Laterality Volume Impressions 07/11/2017 5:30 PM EST Bibasilar atelectasis, greater on the left with a small effusion on that side. Narrative 07/11/2017 5:30 PM EST EXAMINATION: XR CHEST PA AND LATERAL (GENERIC) CLINICAL HISTORY: s/p CABGx3 TECHNIQUE: Chest and lateral COMPARISON: 07/07/2017 FINDINGS: Sternotomy wires. The patient has been e xtubated, left chest tube removed, and Biscoe-Suzi catheter removed since the study. Atelectasis at both lung bases, greater on the left with a small effusion on that side. Stable mild cardiomegaly. No pulmonary edema. No pne umothorax. Procedure Note Lloyd Briscoe MD - 07/11/2017Form atting of this note might be different from the original. EXAMINATION: XR CHEST PA AND LATERAL (GE NERIC) CLINICAL HISTORY: s/p CABGx3 TECHNIQUE: Chest and lateral COMPARISON: 07/07/2017 FINDINGS: Sternotomy wires. The patient has been e xtubated, left chest tube removed, and Biscoe-Suzi catheter removed since the study. Atelectasis at both lung bases, greater on the left with a small effusion on that side. Stable mild cardiomegaly. No pulmonary edema. No pne umothorax. IMPRESSION Bibasilar atelectasis, greater on the le ft with a small effusion on that side. Yuan Webber MD IMG DX ORDERABLES (ABNORMAL) POCT Glucose (07/11/2017 4:05 PM EST) athologist Signature POC Glucose 223 (H) 65 - 199 [facility] Comment: Supplemental ranges: <140 mg/dL before meals <180 mg/dL all other times of the day Specimen Anatomical Collection Method Collection Time Receive d Time (Source) Location / / Volume Laterality Blood specimen 07/11/2017 4:05 PM 017 4:05 (specimen) EST PM EST Yuan Webber MD POINT OF CARE TEST ORDERABLE S Performing Organization Address City/State/[place] [address] POCT Glucose (07/11/2017 11:55 AM EST) athologist Signature POC Glucose 176 65 - 199 [facility] Comment: Supplemental ranges: <140 mg/dL before meals <180 mg/dL all other times of the day Specimen Anatomical Collection Method Collection Time Receive d Time (Source) Location / / Volume Laterality Blood specimen 07/11/2017 11:55 7 (specimen) AM EST 11:55 AM EST Yuan Webber MD POINT OF CARE TEST ORDERABLE S Performing Organization Address City/[facility]/ZIP Code Phon e Number [address] POCT Glucose (07/11/2017 7:53 AM EST) P athologist Signature POC Glucose 189 65 - 199 [facility] mg/dL [facility] Comment: Supplemental ranges: <140 mg/dL before meals <180 mg/dL all other times of the day Specimen Anatomical Collection Method Collection Time Receive d Time (Source) Location / / Volume Laterality Blood specimen 07/11/2017 7:53 AM 017 7:53 (specimen) EST AM EST Yuan Webber MD POINT OF CARE TEST ORDERABLE S Performing Organization Address City/[facility]/ZIP Code Phon e Number [address] POCT Glucose (07/11/2017 4:22 AM EST) P athologist Signature POC Glucose 151 65 - 199 [place] mg/dL [facility] Comment: Supplemental ranges: <140 mg/dL before meals <180 mg/dL all other times of the day Specimen Anatomical Collection Method Collection Time Receive d Time (Source) Location / / Volume Laterality Blood specimen 07/11/2017 4:22 AM 017 4:22 (specimen) EST AM EST Yuan Webber MD POINT OF CARE TEST ORDERABLE S Performing Organization Address City/State/ZIP Code Phon e Number [address] Potassium (07/11/2017 2:20 AM EST) P athologist Signature Potassium 4.5 3.5 - 5.0 [facility] RYAN mmol/L [facility] Comment: Please note: ??Patients with WBC >100,00 0 may have falsely elevated Potassium levels. ??For accurate Potassium quantif ication in these patients send serum separator tube (gold top) for subsequent determinations. ??Contact the Clinical Chemistry Laboratory if there are any qu estions. Specimen Anatomical Collection Method Collection Time Receive d Time (Source) Location / / Volume Laterality Blood specimen 07/11/2017 2:20 AM 017 2:37 (specimen) EST AM EST Resulting Agency Comment Spec In Lab Yuan Webber MD CHEMISTRY ORDERABLES Performing Organization Address City/State/ZIP Code Phon e Number [address] POCT Glucose (07/11/2017 12:17 AM EST) athologist Signature POC Glucose 162 65 - 199 [facility] Comment: Supplemental ranges: <140 mg/dL before meals <180 mg/dL all other times of the day Specimen Anatomical Collection Method Collection Time Receive d Time (Source) Location / / Volume Laterality Blood specimen 07/11/2017 12:17 7 (specimen) AM EST 12:17 AM EST Yuan Webber MD POINT OF CARE TEST ORDERABLE S Performing Organization Address City/[facility]/[place] [address] POCT Glucose (07/10/2017 8:47 PM EST) athologist Signature POC Glucose 191 65 - 199 [facility] Comment: Supplemental ranges: <140 mg/dL before meals <180 mg/dL all other times of the day Specimen Anatomical Collection Method Collection Time Receive d Time (Source) Location / / Volume Laterality Blood specimen 07/10/2017 8:47 PM 017 8:47 (specimen) EST PM EST Yuan Webber MD POINT OF CARE TEST ORDERABLE S Performing Organization Address City/[facility]/[place] [address] POCT Glucose (07/10/2017 4:06 PM EST) athologist Signature POC Glucose 131 65 - 199 [place] mg/dL [facility] Comment: Supplemental ranges: <140 mg/dL before meals <180 mg/dL all other times of the day Specimen Anatomical Collection Method Collection Time Receive d Time (Source) Location / / Volume Laterality Blood specimen 07/10/2017 4:06 PM 017 4:06 (specimen) EST PM EST Yuan Webber MD POINT OF CARE TEST ORDERABLE S Performing Organization Address City/State/[place] [address] POCT Glucose (07/10/2017 3:08 PM EST) athologist Signature POC Glucose 151 65 - 199 [place] mg/dL [facility] Comment: Supplemental ranges: <140 mg/dL before meals <180 mg/dL all other times of the day Specimen Anatomical Collection Method Collection Time Receive d Time (Source) Location / / Volume Laterality Blood specimen 07/10/2017 3:08 PM 017 3:08 (specimen) EST PM EST Yuan Webber MD POINT OF CARE TEST ORDERABLE S Performing Organization Address City/State/[place] [address] POCT Glucose (07/10/2017 2:25 PM EST) athologist Signature POC Glucose 146 65 - 199 [place] mg/dL [facility] Comment: Supplemental ranges: <140 mg/dL before meals <180 mg/dL all other times of the day Specimen Anatomical Collection Method Collection Time Receive d Time (Source) Location / / Volume Laterality Blood specimen 07/10/2017 2:25 PM 017 2:25 (specimen) EST PM EST Yuan Webber MD POINT OF CARE TEST ORDERABLE S Performing Organization Address City/State/ZIP Code Phon e Number [address] POCT Glucose (07/10/2017 1:23 PM EST) athologist Signature POC Glucose 166 65 - 199 [place] mg/dL [facility] Comment: Supplemental ranges: <140 mg/dL before meals <180 mg/dL all other times of the day Specimen Anatomical Collection Method Collection Time Receive d Time (Source) Location / / Volume Laterality Blood specimen 07/10/2017 1:23 PM 017 1:23 (specimen) EST PM EST Yuan Webber MD POINT OF CARE TEST ORDERABLE S Performing Organization Address City/State/[place] [address] POCT Glucose (07/10/2017 11:52 AM EST) P athologist Signature POC Glucose 157 65 - 199 [facility] Comment: Supplemental ranges: <140 mg/dL before meals <180 mg/dL all other times of the day Specimen Anatomical Collection Method Collection Time Receive d Time (Source) Location / / Volume Laterality Blood specimen 07/10/2017 11:52 7 (specimen) AM EST 11:52 AM EST Yuan Webber MD POINT OF CARE TEST ORDERABLE S Performing Organization Address City/State/ZIP Code Phon e Number [address] POCT Glucose (07/10/2017 11:01 AM EST) P athologist Signature POC Glucose 158 65 - 199 [facility] [place] mg/dL [facility] Comment: Supplemental ranges: <140 mg/dL before meals <180 mg/dL all other times of the day Specimen Anatomical Collection Method Collection Time Receive d Time (Source) Location / / Volume Laterality Blood specimen 07/10/2017 11:01 7 (specimen) AM EST 11:01 AM EST Yuan Webber MD POINT OF CARE TEST ORDERABLE S Performing Organization Address City/State/ZIP Code Phon e Number [address] POCT Glucose (07/10/2017 9:54 AM EST) P athologist Signature POC Glucose 160 65 - 199 [place] mg/dL [facility] Comment: Supplemental ranges: <140 mg/dL before meals <180 mg/dL all other times of the day Specimen Anatomical Collection Method Collection Time Receive d Time (Source) Location / / Volume Laterality Blood specimen 07/10/2017 9:54 AM 017 9:54 (specimen) EST AM EST Yuan Webber MD POINT OF CARE TEST ORDERABLE S Performing Organization Address City/State/ZIP Code Phon e Number [address] POCT Glucose (07/10/2017 8:58 AM EST) athologist Signature POC Glucose 183 65 - 199 [place] mg/dL [facility] Comment: Supplemental ranges: <140 mg/dL before meals <180 mg/dL all other times of the day Specimen Anatomical Collection Method Collection Time Receive d Time (Source) Location / / Volume Laterality Blood specimen 07/10/2017 8:58 AM 017 8:58 (specimen) EST AM EST Yuan Webber MD POINT OF CARE TEST ORDERABLE S Performing Organization Address City/State/ZIP Code Phon e Number [address] POCT Glucose (07/10/2017 8:01 AM EST) athologist Signature POC Glucose 173 65 - 199 [facility] [place] mg/dL [facility] Comment: Supplemental ranges: <140 mg/dL before meals <180 mg/dL all other times of the day Specimen Anatomical Collection Method Collection Time Receive d Time (Source) Location / / Volume Laterality Blood specimen 07/10/2017 8:01 AM 017 8:01 (specimen) EST AM EST Yuan Webber MD POINT OF CARE TEST ORDERABLE S Performing Organization Address City/State/ZIP Code Phon e Number [address] POCT Glucose (07/10/2017 7:05 AM EST) athologist Signature POC Glucose 166 65 - 199 [facility] [place] mg/dL [facility] Comment: Supplemental ranges: <140 mg/dL before meals <180 mg/dL all other times of the day Specimen Anatomical Collection Method Collection Time Receive d Time (Source) Location / / Volume Laterality Blood specimen 07/10/2017 7:05 AM 017 7:05 (specimen) EST AM EST Yuan Webber MD POINT OF CARE TEST ORDERABLE S Performing Organization Address City/State/[place] [address] POCT Glucose (07/10/2017 6:00 AM EST) P athologist Signature POC Glucose 162 65 - 199 [facility] Comment: Supplemental ranges: <140 mg/dL before meals <180 mg/dL all other times of the day Specimen Anatomical Collection Method Collection Time Receive d Time (Source) Location / / Volume Laterality Blood specimen 07/10/2017 6:00 AM 017 6:00 (specimen) EST AM EST Yuan Webber MD POINT OF CARE TEST ORDERABLE S Performing Organization Address City/State/[place] [address] (ABNORMAL) Differential, Automated (07/10/2017 4:28 AM EST) Patholo gist Method Time Signature Neutrophils % 87.9 % [facility] LABORATORY Neutr Abs (ANC) 10.70 (H) 1.70 - [facility] 6.10 [facility] x10(3)/[facility] L LABORATORY Lymphocytes % 3.9 % [facility] Lymphocytes Abs 0.5 (L) 0.9 - 3.2 [facility] x10(3)/[facility] LABORATORY Monocytes % 7.0 % [facility]ORY Monocyte Abs 0.8 0.3 - 0.9 [facility] x10(3)/[facility] LABORATORY Eosinophils % 0.3 % [facility] Eosinophils Abs 0.0 0.0 - 0.4 [facility] x10(3)/[facility] LABORATORY Basophils % 0.2 % [facility] Basophils Abs 0.0 0.0 - 0.1 [facility] x10(3)/[facility] LABORATORY Immature Gran % 0.70 % [facility] Comment: Immature granulocytes(IG's)percentage an d absolute count will include metamyelocytes, myelocytes, and promyelo cytes. Blood smears from CBCs yielding IG's will be scanned manually for concor dance. If this scan disagrees with the automated IG or if promyelocytes are not ed, a manual differential will be performed. Melisa Gran Abs 0.08 (H) 0.00 - 0.04 x10(3)/[facility] LABORATORY Specimen Anatomical Collection Method Collection Time Receive d Time (Source) Location / / Volume Laterality Blood specimen 07/10/2017 4:28 AM 017 4:36 (specimen) EST AM EST Resulting Agency Comment Spec In Lab Yuan Webber MD HEMATOLOGY ORDERABLES Performing Organization Address City/State/ZIP Code Phon e Number [place] [id number] (ABNORMAL) Hemogram (07/10/2017 4:28 AM EST) Analysis Performed At Patho logist Time Signature WBC 12.2 (H) 4.0 - 9.5 [facility] x10(3)/[facility] LABORATORY RBC 3.31 (L) 4.58 - [facility] 5[facility]54 [facility] x10(6)/[facility] LABORATORY Hemoglobin 9.8 (L) 13.7 - [facility] 16[facility] gm/dL [facility] Hematocrit 30.0 (L) 40.5 - [facility] 48.5 % [facility] MCV 90.6 82.9 - [facility] 93.1 [facility] LABORATORY MCH 29.6 27.5 - [facility] 32.1 pg [facility] MCHC 32.7 32.0 - [facility] 35.7 gm/dL [facility] Platelets 135 (L) 145 - 357 [facility] x10(3)/[facility] RDWSD 50.8 (H) 36.0 - [facility] 45.0 [facility] RDWCV 15.4 (H) 11.4 - [facility] 13.8 % [facility] MPV 10.0 7.6 - 12.9 [facility] LABORATORY nRBC % Auto 0.0 % [facility] LABORATORY nRBC Abs Auto 0.000 0.000 - [facility] 0.000 [facility] x10(3)/[facility] LABORATORY Specimen Anatomical Collection Method Collection Time Receive d Time (Source) Location / / Volume Laterality Blood specimen 07/10/2017 4:28 AM 017 4:36 (specimen) EST AM EST Resulting Agency Comment Spec In Lab Yuan Webber MD HEMATOLOGY ORDERABLES Performing Organization Address City/State/[place] [address] (ABNORMAL) Basic Metabolic Panel (non-fasting) (07/10/2017 4:28 AM EST) P athologist Signature Glucose Lvl 178 65 - 199 [facility] mg/dL [facility] Comment: Diabetes: >=200 mg/dL plus symp toms BUN 20 10 - 20 mg/dL [facility] Creatinine 1.19 0.80 - 1.50 mg/dL [facility] Sodium 143 135 - 145 mmol/L [facility] Potassium 4.6 3.5 - 5.0 mmol/L [facility] Comment: Please note: ??Patients with WBC >100,00 0 may have falsely elevated Potassium levels. ??For accurate Potassium quantif ication in these patients send serum separator tube (gold top) for subsequent determinations. ??Contact the Clinical Chemistry Laboratory if there are any qu estions. Chloride 107 98 - 107 mmol/L [facility] CO2 21 (L) 22 - 31 mmol/L [facility] Anion Gap 15 5 - 15 mmol/L [facility] Calcium 7.4 (L) 8.5 - 10.5 mg/dL [facility] Estimated GFR 60 >=60 [facility] Comment: The reported eGFR should be multiplied b y 1.2 for patients. The MDRD is not an appropriate measure o f renal function for patients with body mass extremes or in patients with acute kidney failure. http://[email or web address]/DHnkdep http://[employer]/DHMCnkf Specimen Anatomical Collection Method Collection Time Receive d Time (Source) Location / / Volume Laterality Blood specimen 07/10/2017 4:28 AM 017 4:36 (specimen) EST AM EST Resulting Agency Comment Spec In Lab Yuan Webber MD CHEMISTRY ORDERABLES Performing Organization Address City/State/ZIP Code Phon e Number [address] POCT Glucose (07/10/2017 4:26 AM EST) athologist Signature POC Glucose 176 65 - 199 [facility] Comment: Supplemental ranges: <140 mg/dL before meals <180 mg/dL all other times of the day Specimen Anatomical Collection Method Collection Time Receive d Time (Source) Location / / Volume Laterality Blood specimen 07/10/2017 4:26 AM 017 4:26 (specimen) EST AM EST Yuan Webber MD POINT OF CARE TEST ORDERABLE S Performing Organization Address City/[facility]/[place] [address] (ABNORMAL) POCT Glucose (07/10/2017 3:06 AM EST) athologist Signature POC Glucose 204 (H) 65 - 199 [facility] mg/dL [facility] Comment: Supplemental ranges: <140 mg/dL before meals <180 mg/dL all other times of the day Specimen Anatomical Collection Method Collection Time Receive d Time (Source) Location / / Volume Laterality Blood specimen 07/10/2017 3:06 AM 017 3:06 (specimen) EST AM EST Yuan Webber MD POINT OF CARE TEST ORDERABLE S Performing Organization Address City/[facility]/[place] [address] (ABNORMAL) POCT Glucose (07/10/2017 2:10 AM EST) athologist Signature POC Glucose 203 (H) 65 - 199 [place] mg/dL [facility] Comment: Supplemental ranges: <140 mg/dL before meals <180 mg/dL all other times of the day Specimen Anatomical Collection Method Collection Time Receive d Time (Source) Location / / Volume Laterality Blood specimen 07/10/2017 2:10 AM 017 2:10 (specimen) EST AM EST Yuan Webber MD POINT OF CARE TEST ORDERABLE S Performing Organization Address City/State/ZIP Code Phon e Number [address] POCT Glucose (07/10/2017 1:09 AM EST) athologist Signature POC Glucose 196 65 - 199 [place] [facility] mg/dL [facility] Comment: Supplemental ranges: <140 mg/dL before meals <180 mg/dL all other times of the day Specimen Anatomical Collection Method Collection Time Receive d Time (Source) Location / / Volume Laterality Blood specimen 07/10/2017 1:09 AM 017 1:09 (specimen) EST AM EST Yuan Webber MD POINT OF CARE TEST ORDERABLE S Performing Organization Address City/State/[place] [address] POCT Glucose (07/10/2017 12:10 AM EST) athologist Signature POC Glucose 173 65 - 199 [place] mg/dL [facility] Comment: Supplemental ranges: <140 mg/dL before meals <180 mg/dL all other times of the day Specimen Anatomical Collection Method Collection Time Receive d Time (Source) Location / / Volume Laterality Blood specimen 07/10/2017 12:10 7 (specimen) AM EST 12:10 AM EST Yuan Webber MD POINT OF CARE TEST ORDERABLE S Performing Organization Address City/State/ZIP Code Phon e Number [address] POCT Glucose (07/09/2017 11:01 PM EST) athologist Signature POC Glucose 140 65 - 199 [place] mg/dL [facility] Comment: Supplemental ranges: <140 mg/dL before meals <180 mg/dL all other times of the day Specimen Anatomical Collection Method Collection Time Receive d Time (Source) Location / / Volume Laterality Blood specimen 07/09/2017 11:01 7 (specimen) PM EST 11:01 PM EST Yuan Webber MD POINT OF CARE TEST ORDERABLE S Performing Organization Address City/State/[place] [address] POCT Glucose (07/09/2017 10:05 PM EST) athologist Signature POC Glucose 144 65 - 199 [facility] mg/dL [facility] Comment: Supplemental ranges: <140 mg/dL before meals <180 mg/dL all other times of the day Specimen Anatomical Collection Method Collection Time Receive d Time (Source) Location / / Volume Laterality Blood specimen 07/09/2017 10:05 7 (specimen) PM EST 10:05 PM EST Yuan Webber MD POINT OF CARE TEST ORDERABLE S Performing Organization Address City/State/ZIP Code Phon e Number [address] POCT Glucose (07/09/2017 9:31 PM EST) athologist Signature POC Glucose 121 65 - 199 [place] mg/dL [facility] Comment: Supplemental ranges: <140 mg/dL before meals <180 mg/dL all other times of the day Specimen Anatomical Collection Method Collection Time Receive d Time (Source) Location / / Volume Laterality Blood specimen 07/09/2017 9:31 PM 017 9:31 (specimen) EST PM EST Yuan Webber MD POINT OF CARE TEST ORDERABLE S Performing Organization Address City/State/ZIP Code Phon e Number [address] POCT Glucose (07/09/2017 9:03 PM EST) athologist Signature POC Glucose 98 65 - 199 [place] mg/dL [facility] Comment: Supplemental ranges: <140 mg/dL before meals <180 mg/dL all other times of the day Specimen Anatomical Collection Method Collection Time Receive d Time (Source) Location / / Volume Laterality Blood specimen 07/09/2017 9:03 PM 017 9:03 (specimen) EST PM EST Yuan Webber MD POINT OF CARE TEST ORDERABLE S Performing Organization Address City/State/ZIP Code Phon e Number [address] POCT Glucose (07/09/2017 8:09 PM EST) athologist Signature POC Glucose 117 65 - 199 [facility] Comment: Supplemental ranges: <140 mg/dL before meals <180 mg/dL all other times of the day Specimen Anatomical Collection Method Collection Time Receive d Time (Source) Location / / Volume Laterality Blood specimen 07/09/2017 8:09 PM 017 8:09 (specimen) EST PM EST Yuan Webber MD POINT OF CARE TEST ORDERABLE S Performing Organization Address City/State/ZIP Code Phon e Number [address] POCT Glucose (07/09/2017 5:40 PM EST) athologist Signature POC Glucose 155 65 - 199 [facility]dL [facility] Comment: Supplemental ranges: <140 mg/dL before meals <180 mg/dL all other times of the day Specimen Anatomical Collection Method Collection Time Receive d Time (Source) Location / / Volume Laterality Blood specimen 07/09/2017 5:40 PM 017 5:40 (specimen) EST PM EST Yuan Webber MD POINT OF CARE TEST ORDERABLE S Performing Organization Address City/State/ZIP Code Phon e Number [address] POCT Glucose (07/09/2017 4:24 PM EST) athologist Signature POC Glucose 164 65 - 199 [facility] mg[facility]dL [facility] Comment: Supplemental ranges: <140 mg/dL before meals <180 mg/dL all other times of the day Specimen Anatomical Collection Method Collection Time Receive d Time (Source) Location / / Volume Laterality Blood specimen 07/09/2017 4:24 PM 017 4:24 (specimen) EST PM EST Yuan Webber MD POINT OF CARE TEST ORDERABLE S Performing Organization Address City/State/[place] [address] POCT Glucose (07/09/2017 3:19 PM EST) athologist Signature POC Glucose 166 65 - 199 [place] mg/dL [facility] Comment: Supplemental ranges: <140 mg/dL before meals <180 mg/dL all other times of the day Specimen Anatomical Collection Method Collection Time Receive d Time (Source) Location / / Volume Laterality Blood specimen 07/09/2017 3:19 PM 017 3:19 (specimen) EST PM EST Yuan Webber MD POINT OF CARE TEST ORDERABLE S Performing Organization Address City/State/[place] [address] POCT Glucose (07/09/2017 2:26 PM EST) athologist Signature POC Glucose 179 65 - 199 [place] mg/dL [facility] Comment: Supplemental ranges: <140 mg/dL before meals <180 mg/dL all other times of the day Specimen Anatomical Collection Method Collection Time Receive d Time (Source) Location / / Volume Laterality Blood specimen 07/09/2017 2:26 PM 017 2:26 (specimen) EST PM EST Yuan Webber MD POINT OF CARE TEST ORDERABLE S Performing Organization Address City/State/[place] [address] (ABNORMAL) POCT Glucose (07/09/2017 1:29 PM EST) athologist Signature POC Glucose 210 (H) 65 - 199 [place] mg/dL [facility] Comment: Supplemental ranges: <140 mg/dL before meals <180 mg/dL all other times of the day Specimen Anatomical Collection Method Collection Time Receive d Time (Source) Location / / Volume Laterality Blood specimen 07/09/2017 1:29 PM 017 1:29 (specimen) EST PM EST Yuan Webber MD POINT OF CARE TEST ORDERABLE S Performing Organization Address City/State/ZIP Code Phon e Number [address] POCT Glucose (07/09/2017 12:20 PM EST) P athologist Signature POC Glucose 172 65 - 199 [facility]dL [facility] Comment: Supplemental ranges: <140 mg/dL before meals <180 mg/dL all other times of the day Specimen Anatomical Collection Method Collection Time Receive d Time (Source) Location / / Volume Laterality Blood specimen 07/09/2017 12:20 7 (specimen) PM EST 12:20 PM EST Yuan Webber MD POINT OF CARE TEST ORDERABLE S Performing Organization Address City/State/[place] [address] POCT Glucose (07/09/2017 11:24 AM EST) athologist Signature POC Glucose 156 65 - 199 [facility] Comment: Supplemental ranges: <140 mg/dL before meals <180 mg/dL all other times of the day Specimen Anatomical Collection Method Collection Time Receive d Time (Source) Location / / Volume Laterality Blood specimen 07/09/2017 11:24 7 (specimen) AM EST 11:24 AM EST Yuan Webber MD POINT OF CARE TEST ORDERABLE S Performing Organization Address City/State/ZIP Code Phon e Number [address] POCT Glucose (07/09/2017 11:11 AM EST) P athologist Signature POC Glucose 172 65 - 199 [facility] Comment: Supplemental ranges: <140 mg/dL before meals <180 mg/dL all other times of the day Specimen Anatomical Collection Method Collection Time Receive d Time (Source) Location / / Volume Laterality Blood specimen 07/09/2017 11:11 7 (specimen) AM EST 11:11 AM EST Yuan Webber MD POINT OF CARE TEST ORDERABLE S Performing Organization Address City/State/ZIP Code Phon e Number [address] POCT Glucose (07/09/2017 10:08 AM EST) P athologist Signature POC Glucose 176 65 - 199 KATALINA ZHAORYAN mg/dL [facility] Comment: Supplemental ranges: <140 mg/dL before meals <180 mg/dL all other times of the day Specimen Anatomical Collection Method Collection Time Receive d Time (Source) Location / / Volume Laterality Blood specimen 07/09/2017 10:08 7 (specimen) AM EST 10:08 AM EST Yuan Webber MD POINT OF CARE TEST ORDERABLE S Performing Organization Address City/State/[place] [address] POCT Glucose (07/09/2017 8:02 AM EST) P athologist Signature POC Glucose 178 65 - 199 KATALINA ZHAORYAN mg/dL [facility] Comment: Supplemental ranges: <140 mg/dL before meals <180 mg/dL all other times of the day Specimen Anatomical Collection Method Collection Time Receive d Time (Source) Location / / Volume Laterality Blood specimen 07/09/2017 8:02 AM 017 8:02 (specimen) EST AM EST Yuan Webber MD POINT OF CARE TEST ORDERABLE S Performing Organization Address City/State/[place] [address] (ABNORMAL) BLOOD GAS 2 ARTERIAL (07/09/2017 5:37 AM EST) Analysis Performed At Patho logist Time Signature pH Art 7.36 7.35 - [facility] 7.45 [facility] pCO2 Art 38 35 - 45 [facility] mmHg [facility] pO2 Art 79 (L) 85 - 104 [facility] LABORATORY HCO3 Art 20.9 20.0 - [facility] 26.0 [facility] mmol/L [facility] LABORATORY BE Art -4.6 (L) -3.0 - 3.0 [facility] mmol/L [facility] Hgb Blood Gas 10.5 (L) 13.7 - [facility] 16.5 gm/dL [facility] O2HB Art 93.8 (L) 94.0 - [facility] 97.0 % [facility] COHB Art 0.3 % [facility] Comment: Nonsmokers: 0.5-1.5% COHB Smokers: Variable, but usually less than 10% Toxic: 20-30% COHB Lethal: Greater than 60% COHB METHB Art 0.6 <=1.5 % [facility] Na Whole Blood 141 135 - 145 mmol/L [facility] K Whole Blood 4.5 3.5 - 5.0 mmol/L [facility] Comment: Please note: Patients with WBC >100,000 may have falsely elevated Potassium levels. Contact the Clinical Chemistry L aboratory if there are any questions. ICa Whole Blood 1.01 (L) 1.15 - 1.33 mmol/L [facility] Comment: Note: ??Total bilirubin higher than 20 m g/dL may lead to falsely low ionized calcium. CL Whole Blood 113 (H) 98 - 107 mmol/L [facility] Gluc Whole Bld 175 65 - 199 mg/dL [facility] Comment: Diabetes: >=200 mg/dL plus symp toms. Lactate WB 1.0 0.5 - 2.2 mmol/L [facility] LAB[facility]ORY FIO2 Art 40 % [facility] PF Ratio Art 198 [facility] LABORATORY Specimen Anatomical Collection Method Collection Time Receive d Time (Source) Location / / Volume Laterality Blood specimen 07/09/2017 5:37 AM 017 5:37 (specimen) EST AM EST Yuan Webber MD CHEMISTRY ORDERABLES Performing Organization Address City/State/[place] [address] POCT Glucose (07/09/2017 3:27 AM EST) athologist Signature POC Glucose 192 65 - 199 [facility] Comment: Supplemental ranges: <140 mg/dL before meals <180 mg/dL all other times of the day Specimen Anatomical Collection Method Collection Time Receive d Time (Source) Location / / Volume Laterality Blood specimen 07/09/2017 3:27 AM 017 3:27 (specimen) EST AM EST Yuan Webber MD POINT OF CARE TEST ORDERABLE S Performing Organization Address City/State/[place] [address] (ABNORMAL) Basic Metabolic Panel (non-fasting) (07/09/2017 2:30 AM EST) athologist Signature Glucose Lvl 179 65 - 199 [facility] mg/dL [facility] Comment: Diabetes: >=200 mg/dL plus symp toms BUN 17 10 - 20 mg/dL [facility] Creatinine 1.34 0.80 - 1.50 mg/dL [facility] Sodium 144 135 - 145 mmol/L [facility] Potassium Not Perf 3.5 - 5.0 mmol/L [facility] Comment: Duplicate order Please note: ??Patients with WBC >100,00 0 may have falsely elevated Potassium levels. ??For accurate Potassium quantif ication in these patients send serum separator tube (gold top) for subsequent determinations. ??Contact the Clinical Chemistry Laboratory if there are any qu estions. Chloride 111 (H) 98 - 107 mmol/L [facility] CO2 21 (L) 22 - 31 mmol/L [facility] Anion Gap 12 5 - 15 mmol/L [facility] Calcium 7.1 (L) 8.5 - 10.5 mg/dL [facility] Comment: result rechecked-JLK Estimated GFR 53 (L) >=60 [facility] Comment: The reported eGFR should be multiplied b y 1.2 for patients. The MDRD is not an appropriate measure o f renal function for patients with body mass extremes or in patients with acute kidney failure. http://[employer]/DHnkdep http://[employer]/DHMCnkf Specimen Anatomical Collection Method Collection Time Receive d Time (Source) Location / / Volume Laterality Blood specimen Venous Draw / 07/09/2017 2:30 AM 2016 2:42 (specimen) Unknown EST AM EST Resulting Agency Comment Spec In Lab Yuan Webber MD CHEMISTRY ORDERABLES Performing Organization Address City/[facility] [place] [address] (ABNORMAL) Potassium (07/09/2017 2:30 AM EST) P athologist Signature Potassium 5.1 (H) 3.5 - 5.0 [facility] mmol/L [facility] Comment: Please note: ??Patients with WBC >100,00 0 may have falsely elevated Potassium levels. ??For accurate Potassium quantif ication in these patients send serum separator tube (gold top) for subsequent determinations. ??Contact the Clinical Chemistry Laboratory if there are any qu estions. Specimen Anatomical Collection Method Collection Time Receive d Time (Source) Location / / Volume Laterality Blood specimen 07/09/2017 2:30 AM 017 2:41 (specimen) EST AM EST Resulting Agency Comment Spec In Lab Yuan Webber MD CHEMISTRY ORDERABLES Performing Organization Address City/[facility] [place] [address] (ABNORMAL) Hemogram (07/09/2017 2:30 AM EST) Analysis Performed At Patho logist Time Signature WBC 12.5 (H) 4.0 - 9.5 KATALINA RYAN x10(3)/[facility] LABORATORY RBC 3.38 (L) 4.58 - KATALINA RYAN 5.54 [facility] x10(6)/[facility] LABORATORY Hemoglobin 10.1 (L) 13.7 - KATALINA RYAN 16.5 gm/dL [facility] Hematocrit 30.3 (L) 40.5 - KATALINA RYAN 48.5 % [facility] MCV 89.6 82.9 - KATALINA DAVIS 93.1 [facility] LABORATORY MCH 29.9 27.5 - KATALINA OLIVASCK 32.1 pg [facility] MCHC 33.3 32.0 - KATALINA OLIVASCK 35.7 gm/dL [facility] Platelets 127 (L) 145 - 357 [facility] x10(3)/[facility] LABORATORY RDWSD 49.3 (H) 36.0 - KATALINA DAVIS 45.0 [facility] LABORATORY RDWCV 15.2 (H) 11.4 - KATALINA DAVIS 13.8 % [facility] MPV 9.9 7.6 - 12.9 KATALINA DAVIS [facility] LABORATORY nRBC % Auto 0.0 % [facility] LABORATORY nRBC Abs Auto 0.000 0.000 - KATALINA ZHAORYAN 0.000 [facility] x10(3)/[facility] LABORATORY Specimen Anatomical Collection Method Collection Time Receive d Time (Source) Location / / Volume Laterality Blood specimen 07/09/2017 2:30 AM 017 2:41 (specimen) EST AM EST Resulting Agency Comment Spec In Lab Yuan Webber MD HEMATOLOGY ORDERABLES Performing Organization Address City/[facility]/ZIP Code Phon e Number [address] POCT Glucose (07/09/2017 2:10 AM EST) athologist Signature POC Glucose 169 65 - 199 [facility] Comment: Supplemental ranges: <140 mg/dL before meals <180 mg/dL all other times of the day Specimen Anatomical Collection Method Collection Time Receive d Time (Source) Location / / Volume Laterality Blood specimen 07/09/2017 2:10 AM 017 2:10 (specimen) EST AM EST Yuan Webber MD POINT OF CARE TEST ORDERABLE S Performing Organization Address City/[facility]/ZIP Code Phon e Number [address] POCT Glucose (07/09/2017 1:01 AM EST) athologist Signature POC Glucose 173 65 - 199 KATALINA RYAN mg/dL [facility] Comment: Supplemental ranges: <140 mg/dL before meals <180 mg/dL all other times of the day Specimen Anatomical Collection Method Collection Time Receive d Time (Source) Location / / Volume Laterality Blood specimen 07/09/2017 1:01 AM 017 1:01 (specimen) EST AM EST Yuan Webber MD POINT OF CARE TEST ORDERABLE S Performing Organization Address City/[facility]/[place] [address] Blood culture (07/09/2017 12:40 AM EST) Patholo gist Method Time Signature Blood Culture No growth KATALINA DAVIS at 5 days. [facility] Specimen Anatomical Collection Method Collection Time Receive d Time (Source) Location / / Volume Laterality Blood specimen STRUCTURE OF RIGHT 07/09/2017 12:40 3:58 (specimen) UPPER LIMB / AM EST AM EST Unknown Resulting Agency Comment Spec In Lab Yuan Webber MD MICROBIOLOGY - BLOOD ORDERAB LES Performing Organization Address City/[facility]/[place] [address] Blood culture (07/09/2017 12:30 AM EST) Patholo gist Method Time Signature Blood Culture No growth KATALINA DAVIS at 5 days. [facility] Specimen Anatomical Collection Method Collection Time Receive d Time (Source) Location / / Volume Laterality Blood specimen STRUCTURE OF LEFT 07/09/2017 12:30 1211/2016 3:59 (specimen) UPPER LIMB / AM EST AM EST Unknown Resulting Agency Comment Spec In Lab Yuan Webber MD MICROBIOLOGY - BLOOD ORDERAB LES Performing Organization Address City/[facility]/[place] [address] (ABNORMAL) Urinalysis Microscopic Exam (07/09/2017 12:05 AM EST) Analysis Performed At Patho logist Time Signature RBC UA 32 (H) 0 - 3 /HPF [facility]ORY WBC UA 5 (H) 0 - 3 /HPF [facility] Squam Epith UA <1 <=4 /HPF [facility]ORY Hyaline Cast 17 (H) 0 - 2 /LPF [facility] LABORATORY Gran Cast UA 1 (H) <=0 /LPF [facility]ORATORY Uric Ac Bianca Rare (A) None /HPF [facility] LABORATORY Specimen (Source) Anatomical Collection Method Collection Time Re ceived Time Location / / Volume Laterality Urine specimen 07/09/2017 12:05 7 obtained via AM EST 12:39 AM EST indwelling urinary catheter (specimen) Resulting Agency Comment Spec In Lab Yuan Webber MD URINE ORDERABLES Performing Organization Address City/State/[place] [address] (ABNORMAL) Urinalysis with reflex Culture (07/09/2017 12:05 AM EST) [facility] gist Method Time Signature Glucose UA Negative Negative [facility] mg/dL [facility] Protein UA 30 (A) Negative [facility] mg/dL [facility] Bilirubin UA Negative Negative [facility] mg/dL [facility] Comment: Clinical correlation required for positi ve Urine Bilirubin results as false positive may occur with some drugs and d rug related products. If a false positive is suspected a serum total bili yeager should be considered if clinically indicated. Urobilinogen UA Normal Normal mg/dL [facility] pH UA 5.0 5.0 - 8.0 [facility] Blood UA Moderate (A) Negative mg/dL [facility] Ketones UA Negative Negative mg/dL [facility] Nitrite UA Negative Negative [facility] Leukocytes UA Negative Negative [facility] LABORATORY Appearance UA Hazy (A) Clear [facility] Spec [place] UA 1.025 1.002 - 1.030 [facility] LABORATORY Color UA Yellow Yellow [facility] Culture Reflexed No [facility]OR[facility]ORY Specimen (Source) Anatomical Collection Method Collection Time Re ceived Time Location / / Volume Laterality Urine specimen 07/09/2017 12:05 7 obtained via AM EST 12:39 AM EST indwelling urinary catheter (specimen) Resulting Agency Comment Spec In Lab Yuan Webber MD URINE ORDERABLES Performing Organization Address City/[facility]/ZIP Code Phon e Number [address] POCT Glucose (07/08/2017 11:01 PM EST) P athologist Signature POC Glucose 191 65 - 199 [facility] Comment: Supplemental ranges: <140 mg/dL before meals <180 mg/dL all other times of the day Specimen Anatomical Collection Method Collection Time Receive d Time (Source) Location / / Volume Laterality Blood specimen 07/08/2017 11:01 7 (specimen) PM EST 11:01 PM EST Yuan Webber MD POINT OF CARE TEST ORDERABLE S Performing Organization Address City/[facility]/[place] [address] POCT Glucose (07/08/2017 10:04 PM EST) P athologist Signature POC Glucose 198 65 - 199 [facility] mg/dL [facility] Comment: Supplemental ranges: <140 mg/dL before meals <180 mg/dL all other times of the day Specimen Anatomical Collection Method Collection Time Receive d Time (Source) Location / / Volume Laterality Blood specimen 07/08/2017 10:04 7 (specimen) PM EST 10:04 PM EST Yuan Webber MD POINT OF CARE TEST ORDERABLE S Performing Organization Address City/[facility]/[place] [address] Prepare Albumin 5% in 250 mL (07/08/2017 8:49 PM EST) P athologist Signature Dispensed? Yes [facility] Specimen Anatomical Collection Method Collection Time Receive d Time (Source) Location / / Volume Laterality Blood specimen No Charge / 07/08/2017 8:49 PM 017 8:51 (specimen) Unknown EST PM EST Resulting Agency Comment Spec In Lab [facility] ORDERABLES Performing Organization Address City/State/[place] [address] POCT Glucose (07/08/2017 8:28 PM EST) athologist Signature POC Glucose 195 65 - 199 KATALINA RYAN mg/dL [facility] Comment: Supplemental ranges: <140 mg/dL before meals <180 mg/dL all other times of the day Specimen Anatomical Collection Method Collection Time Receive d Time (Source) Location / / Volume Laterality Blood specimen 07/08/2017 8:28 PM 017 8:28 (specimen) EST PM EST Yuan Webber MD POINT OF CARE TEST ORDERABLE S Performing Organization Address City/[facility]/[place] [address] (ABNORMAL) POCT Glucose (07/08/2017 7:13 PM EST) athologist Signature POC Glucose 220 (H) 65 - 199 KATALINA ZHAORYAN mg/dL [facility] Comment: Supplemental ranges: <140 mg/dL before meals <180 mg/dL all other times of the day Specimen Anatomical Collection Method Collection Time Receive d Time (Source) Location / / Volume Laterality Blood specimen 07/08/2017 7:13 PM 017 7:13 (specimen) EST PM EST Yuan Webber MD POINT OF CARE TEST ORDERABLE S Performing Organization Address City/[facility]/[place] [address] POCT Glucose (07/08/2017 5:04 PM EST) athologist Signature POC Glucose 147 65 - 199 KATALINA RYAN mg/dL [facility] Comment: Supplemental ranges: <140 mg/dL before meals <180 mg/dL all other times of the day Specimen Anatomical Collection Method Collection Time Receive d Time (Source) Location / / Volume Laterality Blood specimen 07/08/2017 5:04 PM 017 5:04 (specimen) EST PM EST Yuan Webber MD POINT OF CARE TEST ORDERABLE S Performing Organization Address City/State/[place] [address] (ABNORMAL) BLOOD GAS 2 ARTERIAL (07/08/2017 4:13 PM EST) Analysis Performed At Patho logist Time Signature pH Art 7.38 7.35 - [facility] 7.45 [facility] pCO2 Art 36 35 - 45 [facility] mmHg [facility] pO2 Art 91 85 - 104 [facility] mmHg [facility] HCO3 Art 20.9 20.0 - [facility] 26.0 [facility] mmol/L [facility] LABORATORY BE Art -4.2 (L) -3.0 - 3.0 [facility] mmol/L [facility] Hgb Blood Gas 11.7 (L) 13.7 - [facility] 16.5 gm/dL [facility] O2HB Art 95.1 94.0 - [facility] 97.0 % [facility] COHB Art 0.6 % [facility] Comment: Nonsmokers: 0.5-1.5% COHB Smokers: Variable, but usually less than 10% Toxic: 20-30% COHB Lethal: Greater than 60% COHB METHB Art 0.6 <=1.5 % [facility] Na Whole Blood 139 135 - 145 mmol/L [facility] K Whole Blood 4.2 3.5 - 5.0 mmol/L [facility] Comment: Please note: Patients with WBC >100,000 may have falsely elevated Potassium levels. Contact the Clinical Chemistry L aboratory if there are any questions. ICa Whole Blood 1.05 (L) 1.15 - 1.33 mmol/L [facility] Comment: Note: ??Total bilirubin higher than 20 m g/dL may lead to falsely low ionized calcium. CL Whole Blood 110 (H) 98 - 107 mmol/L [facility] Gluc Whole Bld 155 65 - 199 mg/dL [facility] Comment: Diabetes: >=200 mg/dL plus symp toms. Lactate WB 1.4 0.5 - 2.2 mmol/L [facility] FIO2 Art 40 % [facility] PF Ratio Art 228 [facility] LABORATORY Specimen Anatomical Collection Method Collection Time Receive d Time (Source) Location / / Volume Laterality Blood specimen 07/08/2017 4:13 PM 017 4:13 (specimen) EST PM EST Yuan Webber MD CHEMISTRY ORDERABLES Performing Organization Address City/State/[place] [address] POCT Glucose (07/08/2017 4:01 PM EST) athologist Signature POC Glucose 148 65 - 199 [facility] mg/dL [facility] Comment: Supplemental ranges: <140 mg/dL before meals <180 mg/dL all other times of the day Specimen Anatomical Collection Method Collection Time Receive d Time (Source) Location / / Volume Laterality Blood specimen 07/08/2017 4:01 PM 017 4:01 (specimen) EST PM EST Yuan Webber MD POINT OF CARE TEST ORDERABLE S Performing Organization Address City/State/ZIP Code Phon e Number [address] POCT Glucose (07/08/2017 3:21 PM EST) athologist Signature POC Glucose 118 65 - 199 KATALINA RYAN mg/dL [facility] Comment: Supplemental ranges: <140 mg/dL before meals <180 mg/dL all other times of the day Specimen Anatomical Collection Method Collection Time Receive d Time (Source) Location / / Volume Laterality Blood specimen 07/08/2017 3:21 PM 017 3:21 (specimen) EST PM EST Yuan Webber MD POINT OF CARE TEST ORDERABLE S Performing Organization Address City/State/ZIP Code Phon e Number [address] POCT Glucose (07/08/2017 2:01 PM EST) athologist Signature POC Glucose 129 65 - 199 [facility] mg/dL [facility] Comment: Supplemental ranges: <140 mg/dL before meals <180 mg/dL all other times of the day Specimen Anatomical Collection Method Collection Time Receive d Time (Source) Location / / Volume Laterality Blood specimen 07/08/2017 2:01 PM 017 2:01 (specimen) EST PM EST Yuan Webber MD POINT OF CARE TEST ORDERABLE S Performing Organization Address City/State/ZIP Code Phon e Number [address] POCT Glucose (07/08/2017 11:53 AM EST) athologist Signature POC Glucose 156 65 - 199 KATALINA RYAN mg/dL [facility] Comment: Supplemental ranges: <140 mg/dL before meals <180 mg/dL all other times of the day Specimen Anatomical Collection Method Collection Time Receive d Time (Source) Location / / Volume Laterality Blood specimen 07/08/2017 11:53 7 (specimen) AM EST 11:53 AM EST Yuan Webber MD POINT OF CARE TEST ORDERABLE S Performing Organization Address City/State/[place] [address] POCT Glucose (07/08/2017 11:04 AM EST) athologist Signature POC Glucose 181 65 - 199 KATALINA RYAN mg/dL [facility] Comment: Supplemental ranges: <140 mg/dL before meals <180 mg/dL all other times of the day Specimen Anatomical Collection Method Collection Time Receive d Time (Source) Location / / Volume Laterality Blood specimen 07/08/2017 11:04 7 (specimen) AM EST 11:04 AM EST Yuan Webber MD POINT OF CARE TEST ORDERABLE S Performing Organization Address City/State/[place] [address] (ABNORMAL) POCT Glucose (07/08/2017 9:24 AM EST) P athologist Signature POC Glucose 203 (H) 65 - 199 KATALINA RYAN mg/dL [facility] Comment: Supplemental ranges: <140 mg/dL before meals <180 mg/dL all other times of the day Specimen Anatomical Collection Method Collection Time Receive d Time (Source) Location / / Volume Laterality Blood specimen 07/08/2017 9:24 AM 017 9:24 (specimen) EST AM EST Yuan Webber MD POINT OF CARE TEST ORDERABLE S Performing Organization Address City/[facility]/[place] [address] APTT (07/08/2017 8:40 AM EST) P athologist Signature PTT 33 25 - 35 sec [facility] Comment: The recommended therapeutic range for fu ll dose, unfractionated heparin at [facility] is 80 ? 114 seconds. The use of the anti-Xa (heparin) level rather than the PTT is recommended for monitoring anticoagul ation intensity in critically ill patients receiving unfractionated hepari n by continuous IV infusion. Specimen Anatomical Collection Method Collection Time Receive d Time (Source) Location / / Volume Laterality Blood specimen 07/08/2017 8:40 AM 017 8:52 (specimen) EST AM EST Resulting Agency Comment Spec In Lab Yuan Webber MD HEMATOLOGY ORDERABLES Performing Organization Address City/[facility]/[place] [address] (ABNORMAL) Prothrombin Time (07/08/2017 8:40 AM EST) P athologist Signature PT 15.6 (H) 11.8 - 14.0 [facility] LABORATORY INR 1.3 (H) 0.9 - 1.1 [facility] Comment: An INR <2.0 [...] Location / / Volume Laterality Blood specimen 07/08/2017 8:40 AM 017 8:52 (specimen) EST AM EST Resulting Agency Comment Spec In Lab Yuan Webber MD HEMATOLOGY ORDERABLES Performing Organization Address City/State/[place] [address] (ABNORMAL) POCT Glucose (07/08/2017 7:38 AM EST) athologist Signature POC Glucose 232 (H) 65 - 199 [facility]dL [facility] Comment: Supplemental ranges: <140 mg/dL before meals <180 mg/dL all other times of the day Specimen Anatomical Collection Method Collection Time Receive d Time (Source) Location / / Volume Laterality Blood specimen 07/08/2017 7:38 AM 017 7:38 (specimen) EST AM EST Yuan Webber MD POINT OF CARE TEST ORDERABLE S Performing Organization Address City/[facility]/[place] [address] (ABNORMAL) POCT Glucose (07/08/2017 7:07 AM EST) athologist Signature POC Glucose 234 (H) 65 - 199 [facility] mg/dL [facility] Comment: Supplemental ranges: <140 mg/dL before meals <180 mg/dL all other times of the day Specimen Anatomical Collection Method Collection Time Receive d Time (Source) Location / / Volume Laterality Blood specimen 07/08/2017 7:07 AM 017 7:07 (specimen) EST AM EST Yuan Webber MD POINT OF CARE TEST ORDERABLE S Performing Organization Address City/[facility]/[place] [address] (ABNORMAL) POCT Glucose (07/08/2017 6:04 AM EST) athologist Signature POC Glucose 225 (H) 65 - 199 [facility] RYAN mg/dL [facility] Comment: Supplemental ranges: <140 mg/dL before meals <180 mg/dL all other times of the day Specimen Anatomical Collection Method Collection Time Receive d Time (Source) Location / / Volume Laterality Blood specimen 07/08/2017 6:04 AM 017 6:04 (specimen) EST AM EST Yuan Webber MD POINT OF CARE TEST ORDERABLE S Performing Organization Address City/State/[place] [address] (ABNORMAL) POCT Glucose (07/08/2017 5:31 AM EST) P athologist Signature POC Glucose 216 (H) 65 - 199 [facility]dL [facility] Comment: Supplemental ranges: <140 mg/dL before meals <180 mg/dL all other times of the day Specimen Anatomical Collection Method Collection Time Receive d Time (Source) Location / / Volume Laterality Blood specimen 07/08/2017 5:31 AM 017 5:31 (specimen) EST AM EST Yuan Webber MD POINT OF CARE TEST ORDERABLE S Performing Organization Address City/[facility]/[place] [address] (ABNORMAL) POCT Glucose (07/08/2017 4:52 AM EST) P athologist Signature POC Glucose 257 (H) 65 - 199 [facility] mg/dL [facility] Comment: Supplemental ranges: <140 mg/dL before meals <180 mg/dL all other times of the day Specimen Anatomical Collection Method Collection Time Receive d Time (Source) Location / / Volume Laterality Blood specimen 07/08/2017 4:52 AM 017 4:52 (specimen) EST AM EST Daphne Shahid MD POINT OF CARE TEST ORDERABLE S Performing Organization Address City/State/[place] [address] (ABNORMAL) BLOOD GAS 2 ARTERIAL (07/08/2017 4:04 AM EST) Analysis Performed At Patho logist Time Signature pH Art 7.30 (L) 7.35 - [facility] 7.45 [facility] pCO2 Art 41 35 - 45 [facility] LABORATORY pO2 Art 83 (L) 85 - 104 [facility] LABORATORY HCO3 Art 19.6 (L) 20.0 - [facility] 26.0 [facility] mmol/L HOSPITAL LABORATORY BE Art -6.8 (L) -3.0 - 3.0 [facility] mmol/L [facility] Hgb Blood Gas 12.2 (L) 13.7 - [facility] 16.5 gm/dL [facility] O2HB Art 93.5 (L) 94.0 - [facility] 97.0 % [facility] COHB Art 0.4 % [facility] Comment: Nonsmokers: 0.5-1.5% COHB Smokers: Variable, but usually less than 10% Toxic: 20-30% COHB Lethal: Greater than 60% COHB METHB Art 0.8 <=1.5 % [facility] Na Whole Blood 138 135 - 145 mmol/L [facility] K Whole Blood 4.4 3.5 - 5.0 mmol/L [facility] Comment: Please note: Patients with WBC >100,000 may have falsely elevated Potassium levels. Contact the Clinical Chemistry L aboratory if there are any questions. ICa Whole Blood 1.05 (L) 1.15 - 1.33 mmol/L [facility] Comment: Note: ??Total bilirubin higher than 20 m g/dL may lead to falsely low ionized calcium. CL Whole Blood 107 98 - 107 mmol/L [facility] Gluc Whole Bld 274 (H) 65 - 199 mg/dL [facility] Comment: Diabetes: >=200 mg/dL plus symp toms. Lactate WB 4.4 (Critical) 0.5 - 2.2 mmol/L [facility] Comment: Noted by survey instrument operator. FIO2 Art 40 % [facility] PF Ratio Art 208 [facility] LABORATORY Specimen Anatomical Collection Method Collection Time Receive d Time (Source) Location / / Volume Laterality Blood specimen 07/08/2017 4:04 AM 017 4:04 (specimen) EST AM EST Daphne Shahid MD CHEMISTRY ORDERABLES Performing Organization Address City/State/[place] [address] Scan, Peripheral Blood (07/08/2017 4:00 AM EST) P athologist Signature Plat Estimate Normal [facility] RBC Morphology Normal [facility] Specimen Anatomical Collection Method Collection Time Receive d Time (Source) Location / / Volume Laterality Blood specimen 07/08/2017 4:00 AM 017 4:09 (specimen) EST AM EST Resulting Agency Comment Spec In Lab Yuan Webber MD HEMATOLOGY ORDERABLES Performing Organization Address City/State/[place] [address] (ABNORMAL) Differential, Automated (07/08/2017 4:00 AM EST) Patholo gist Method Time Signature Neutrophils % 85.4 % [facility]OR[facility]ORY Neutr Abs (ANC) 16.07 (H) 1.70 - [facility] 6.10 [facility] x10(3)/[facility] LABORATORY Lymphocytes % 3.5 % [facility] LABORATORY Lymphocytes Abs 0.6 (L) 0.9 - 3.2 [facility] x10(3)/[facility] LABORATORY Monocytes % 10.4 % [facility] LABORATORY Monocyte Abs 2.0 (H) 0.3 - 0.9 [facility] x10(3)/[facility] LABORATORY Eosinophils % 0.0 % [facility] LABORATORY Eosinophils Abs 0.0 0.0 - 0.4 [facility] x10(3)/[facility] LABORATORY Basophils % 0.1 % [facility] LABORATORY Basophils Abs 0.0 0.0 - 0.1 [facility] x10(3)/[facility] LABORATORY Immature Gran % 0.60 % [facility] Comment: Immature granulocytes(IG's)percentage an d absolute count will include metamyelocytes, myelocytes, and promyelo cytes. Blood smears from CBCs yielding IG's will be scanned manually for concor dance. If this scan disagrees with the automated IG or if promyelocytes are not ed, a manual differential will be performed. Melisa Gran Abs 0.12 (H) 0.00 - 0.04 x10(3)/[facility] LABORATORY Specimen Anatomical Collection Method Collection Time Receive d Time (Source) Location / / Volume Laterality Blood specimen 07/08/2017 4:00 AM 017 4:09 (specimen) EST AM EST Resulting Agency Comment Spec In Lab Yuan Webber MD HEMATOLOGY ORDERABLES Performing Organization Address City/State/[place] [address] (ABNORMAL) Hemogram (07/08/2017 4:00 AM EST) Analysis Performed At Patho logist Time Signature WBC 18.8 (H) 4.0 - 9.5 [facility] x10(3)/[facility] LABORATORY RBC 4.00 (L) 4.58 - [facility]54 [facility] x10(6)/[facility] LABORATORY Hemoglobin 11.9 (L) 13.7 - [facility] 16.5 gm/dL [facility] Hematocrit 35.9 (L) 40.5 - [facility] 48.5 % [facility] MCV 89.8 82.9 - [facility] 93.1 [facility] LABORATORY MCH 29.8 27.5 - [facility] 32.1 pg [facility] MCHC 33.1 32.0 - [facility] 35.[facility] gm/dL [facility] Platelets 232 145 - 357 [facility] x10(3)/[facility] LABORATORY RDWSD 47.6 (H) 36.0 - [facility] 45.0 [facility] LABORATORY RDWCV 14.5 (H) 11.4 - [facility] 13.8 % [facility] MPV 9.5 7.6 - 12.9 [facility] LABORATORY nRBC % Auto 0.0 % [facility] LABORATORY nRBC Abs Auto 0.000 0.000 - [facility] 0.000 [facility] x10(3)/[facility] LABORATORY Specimen Anatomical Collection Method Collection Time Receive d Time (Source) Location / / Volume Laterality Blood specimen 07/08/2017 4:00 AM 017 4:09 (specimen) EST AM EST Resulting Agency Comment Spec In Lab Yuan Webber MD HEMATOLOGY ORDERABLES Performing Organization Address City/[facility]/[place] [address] (ABNORMAL) Electrolytes panel (07/08/2017 4:00 AM EST) athologist Signature Sodium 139 135 - 145 [facility] mmol/L [facility] Potassium 4.7 3.5 - 5.0 [facility] mmol/L [facility] Comment: result rechecked-JLK Please note: ??Patients with WBC >100,00 0 may have falsely elevated Potassium levels. ??For accurate Potassium quantif ication in these patients send serum separator tube (gold top) for subsequent determinations. ??Contact the Clinical Chemistry Laboratory if there are any qu estions. Chloride 104 98 - 107 mmol/L [facility]ORY CO2 21 (L) 22 - 31 mmol/L [facility] Anion Gap 14 5 - 15 mmol/L [facility]ORY Specimen Anatomical Collection Method Collection Time Receive d Time (Source) Location / / Volume Laterality Blood specimen 07/08/2017 4:00 AM 017 4:10 (specimen) EST AM EST Resulting Agency Comment Spec In Lab Yuan Webber MD CHEMISTRY ORDERABLES Performing Organization Address City/[facility]/[place] [address] (ABNORMAL) Cardiac Enzymes (LEB/CGP) (07/08/2017 4:00 AM EST) athologist [facility] Troponin-T 1.88 (H) 0.00 - [facility] 0.00 ng/mL [facility] Comment: The 99th percentile for Troponin T is le ss than 0.01 ng/mL, any detectable cTnT concentration using this assay should be considered elevated. According to the third universal definit ion of myocardial infarction the following criteria with a clinical prese ntation consistent with acute myocardial ischemia meets the diagnosis for a myocardial infarction (MT). Detection of a rise and/or fall of [...] additional sample may be indicated. Reference: [employer] Definition of Myocardial Infarction. Journal of the [place] [employer] 2012;60:1581-98 CK, Total 413 (H) 0 - 200 unit/L [facility] Comment: result rechecked-AYDIN Specimen Anatomical Collection Method Collection Time Receive d Time (Source) Location / / Volume Laterality Blood specimen 07/08/2017 4:00 AM 017 4:09 (specimen) EST AM EST Resulting Agency Comment Spec In Lab Yuan Webber MD CHEMISTRY ORDERABLES Performing Organization Address City/State/[place] [address] (ABNORMAL) Glucose, fasting (07/08/2017 4:00 AM EST) athologist Signature Glucose 287 (H) 65 - 99 [facility] Fasting mg/dL [facility] Comment: ?Fasting* Glucose Interpretive C [...] of Diabetes Mellitus, Position Statement from the [place] [employer]. ??Diabete s Care, Volume 33, Supplement 1, Jul 2009 Specimen Anatomical Collection Method Collection Time Receive d Time (Source) Location / / Volume Laterality Blood specimen 07/08/2017 4:00 AM 017 4:09 (specimen) EST AM EST Resulting Agency Comment Spec In Lab Yuan Webber MD CHEMISTRY ORDERABLES Performing Organization Address City/State/[place] [address] (ABNORMAL) Creatinine (07/08/2017 4:00 AM EST) Analysis Performed At Patho logist Time Signature Creatinine 1.55 (H) 0.80 - [facility] 1.50 mg/dL [facility] Estimated GFR 44 (L) >=60 [facility] Comment: The reported eGFR should be multiplied b y 1.2 for patients. The MDRD is not an appropriate measure o f renal function for patients with body mass extremes or in patients with acute kidney failure. http://Complix/DHnkdep http://Complix/DHMCnkf Specimen Anatomical Collection Method Collection Time Receive d Time (Source) Location / / Volume Laterality Blood specimen 07/08/2017 4:00 AM 017 4:09 (specimen) EST AM EST Resulting Agency Comment Spec In Lab Yuan Webber MD CHEMISTRY ORDERABLES Performing Organization Address City/State/[place] [address] BUN (07/08/2017 4:00 AM EST) P athologist Signature BUN 16 10 - 20 [facility] mg/dL [facility] Specimen Anatomical Collection Method Collection Time Receive d Time (Source) Location / / Volume Laterality Blood specimen 07/08/2017 4:00 AM 017 4:09 (specimen) EST AM EST Resulting Agency Comment Spec In Lab Yuan Webber MD CHEMISTRY ORDERABLES Performing Organization Address City/[facility]/[place] [address] (ABNORMAL) POCT Glucose (07/08/2017 3:00 AM EST) P athologist Signature POC Glucose 273 (H) 65 - 199 [facility] mg/dL [facility] Comment: Supplemental ranges: <140 mg/dL before meals <180 mg/dL all other times of the day Specimen Anatomical Collection Method Collection Time Receive d Time (Source) Location / / Volume Laterality Blood specimen 07/08/2017 3:00 AM 017 3:00 (specimen) EST AM EST Daphne Shahid MD POINT OF CARE TEST ORDERABLE S Performing Organization Address City/State/[place] [address] (ABNORMAL) POCT Glucose (07/08/2017 1:57 AM EST) athologist Signature POC Glucose 288 (H) 65 - 199 [facility] mg/dL [facility] Comment: Supplemental ranges: <140 mg/dL before meals <180 mg/dL all other times of the day Specimen Anatomical Collection Method Collection Time Receive d Time (Source) Location / / Volume Laterality Blood specimen 07/08/2017 1:57 AM 017 1:57 (specimen) EST AM EST Daphne Shahid MD POINT OF CARE TEST ORDERABLE S Performing Organization Address City/State/[place] [address] (ABNORMAL) POCT Glucose (07/08/2017 1:01 AM EST) athologist Signature POC Glucose 315 (H) 65 - 199 [facility] mg/dL [facility] Comment: Supplemental ranges: <140 mg/dL before meals <180 mg/dL all other times of the day Specimen Anatomical Collection Method Collection Time Receive d Time (Source) Location / / Volume Laterality Blood specimen 07/08/2017 1:01 AM 017 1:01 (specimen) EST AM EST Daphne Shahid MD POINT OF CARE TEST ORDERABLE S Performing Organization Address City/State/[place] [address] (ABNORMAL) BLOOD GAS 2 ARTERIAL (07/08/2017 12:09 AM EST) athologist Signature pH Art 7.26 7.35 - [facility] (Critical) 7.45 [facility] Comment: Noted by survey instrument operator. pCO2 Art 41 35 - 45 mmHg [facility]ORY pO2 Art 96 85 - 104 mmHg [facility] HCO3 Art 17.7 (L) 20.0 - 26.0 mmol/L [facility]OR[facility] BE Art -9.4 (L) -3.0 - 3.0 mmol/L [facility] Hgb Blood Gas 12.4 (L) 13.7 - 16.5 gm/dL [facility] O2HB Art 94.7 94.0 - 97.0 % [facility] COHB Art 0.2 % [facility] Comment: Nonsmokers: 0.5-1.5% COHB Smokers: Variable, but usually less than 10% Toxic: 20-30% COHB Lethal: Greater than 60% COHB METHB Art 0.6 <=1.5 % [facility] Na Whole Blood 141 135 - 145 mmol/L [facility] K Whole Blood 3.5 3.5 - 5.0 mmol/L [facility] Comment: Please note: Patients with WBC >100,000 may have falsely elevated Potassium levels. Contact the Clinical Chemistry L aboratory if there are any questions. ICa Whole Blood 1.03 (L) 1.15 - 1.33 mmol/L [facility] Comment: Note: ??Total bilirubin higher than 20 m g/dL may lead to falsely low ionized calcium. CL Whole Blood 109 (H) 98 - 107 mmol/L [facility] Gluc Whole Bld 315 (H) 65 - 199 mg/dL [facility] Comment: Diabetes: >=200 mg/dL plus symp toms. Lactate WB 7.6 (Critical) 0.5 - 2.2 mmol/L [facility] Comment: Noted by survey instrument operator. FIO2 Art 40 % [facility] PF Ratio Art 240 [facility] Specimen Anatomical Collection Method Collection Time Receive d Time (Source) Location / / Volume Laterality Blood specimen Arterial Draw / 07/08/2017 12:09 2016 5:31 (specimen) Unknown AM EST AM EST Resulting Agency Comment Spec In Lab Samy Maldonado MD CHEMISTRY ORDERABLES Performing Organization Address City/[facility]/[place] [address] (ABNORMAL) POCT Glucose (07/07/2017 10:56 PM EST) athologist Signature POC Glucose 292 (H) 65 - 199 [facility] mg/dL [facility] Comment: Supplemental ranges: <140 mg/dL before meals <180 mg/dL all other times of the day Specimen Anatomical Collection Method Collection Time Receive d Time (Source) Location / / Volume Laterality Blood specimen 07/07/2017 10:56 7 (specimen) PM EST 10:56 PM EST Daphne Shahid MD POINT OF CARE TEST ORDERABLE S Performing Organization Address City/[facility]/[place] [address] (ABNORMAL) BLOOD GAS 2 ARTERIAL (07/07/2017 10:04 PM EST) athologist Signature pH Art 7.22 7.35 - [facility] (Critical) 7.45 [facility] Comment: Noted by survey instrument operator. pCO2 Art 42 35 - 45 mmHg [facility] pO2 Art 94 85 - 104 mmHg [facility] HCO3 Art 16.9 (L) 20.0 - 26.0 mmol/L [facility] BE Art -10.7 (L) -3.0 - 3.0 mmol/L [facility] Hgb Blood Gas 13.0 (L) 13.7 - 16.5 gm/dL [facility] O2HB Art 93.8 (L) 94.0 - 97.0 % [facility] COHB Art 0.7 % [facility] Comment: Nonsmokers: 0.5-1.5% COHB Smokers: Variable, but usually less than 10% Toxic: 20-30% COHB Lethal: Greater than 60% COHB METHB Art 0.7 <=1.5 % [facility] Na Whole Blood 140 135 - 145 mmol/L [facility] K Whole Blood 3.3 (L) 3.5 - 5.0 mmol/L [facility] Comment: Please note: Patients with WBC >100,000 may have falsely elevated Potassium levels. Contact the Clinical Chemistry L aboratory if there are any questions. ICa Whole Blood 1.07 (L) 1.15 - 1.33 mmol/L [facility] Comment: Note: ??Total bilirubin higher than 20 m g/dL may lead to falsely low ionized calcium. CL Whole Blood 107 98 - 107 mmol/L [facility] Gluc Whole Bld 304 (H) 65 - 199 mg/dL [facility] Comment: Diabetes: >=200 mg/dL plus symp toms. Lactate WB 8.2 (Critical) 0.5 - 2.2 mmol/L [facility] Comment: Noted by survey instrument operator. FIO2 Art 40 % [facility] PF Ratio Art 235 [facility] Specimen Anatomical Collection Method Collection Time Receive d Time (Source) Location / / Volume Laterality Blood specimen 07/07/2017 10:04 7 (specimen) PM EST 10:04 PM EST Daphne Shahid MD CHEMISTRY ORDERABLES Performing Organization Address City/State/[place] [address] (ABNORMAL) Hemoglobin (07/07/2017 10:00 PM EST) P athologist Signature Hemoglobin 12.8 (L) 13.7 - [facility] 16.5 gm/dL [facility] Specimen Anatomical Collection Method Collection Time Receive d Time (Source) Location / / Volume Laterality Blood specimen 07/07/2017 10:00 7 (specimen) PM EST 10:13 PM EST Resulting Agency Comment Spec In Lab Yuan Webber MD HEMATOLOGY ORDERABLES Performing Organization Address City/[facility]/[place] [address] (ABNORMAL) Potassium (07/07/2017 10:00 PM EST) athologist Signature Potassium 3.4 (L) 3.5 - 5.0 [facility] mmol/L [facility] Comment: Please note: ??Patients with WBC >100,00 0 may have falsely elevated Potassium levels. ??For accurate Potassium quantif ication in these patients send serum separator tube (gold top) for subsequent determinations. ??Contact the Clinical Chemistry Laboratory if there are any qu estions. Specimen Anatomical Collection Method Collection Time Receive d Time (Source) Location / / Volume Laterality Blood specimen 07/07/2017 10:00 7 (specimen) PM EST 10:13 PM EST Resulting Agency Comment Spec In Lab Yuan Webber MD CHEMISTRY ORDERABLES Performing Organization Address City/[facility]/[place] [address] (ABNORMAL) POCT Glucose (07/07/2017 8:49 PM EST) athologist [facility] POC Glucose 241 (H) 65 - 199 [facility] mg/dL [facility] Comment: Supplemental ranges: <140 mg/dL before meals <180 mg/dL all other times of the day Specimen Anatomical Collection Method Collection Time Receive d Time (Source) Location / / Volume Laterality Blood specimen 07/07/2017 8:49 PM 017 8:49 (specimen) EST PM EST Daphne Shahid MD POINT OF CARE TEST ORDERABLE S Performing Organization Address City/[facility]/ZIP Code Phon e Number [address] Prepare Albumin 5% in 250 mL (07/07/2017 8:03 PM EST) athologist Signature Dispensed? Yes [facility] Specimen Anatomical Collection Method Collection Time Receive d Time (Source) Location / / Volume Laterality Blood specimen No Charge / 07/07/2017 8:03 PM 017 8:04 (specimen) Unknown EST PM EST Resulting Agency Comment Spec In Lab Michael BROWN BLOOD BANK ORDERABLES Performing Organization Address City/State/[place] [address] EKG 12 Lead (07/07/2017 7:17 PM EST) Component Value Ref Range Test Analysis Performed Pathologis t Method Time At Signature Ventricular rate 75 BPM MUSE SYSTEM Atrial Rate 75 BPM MUSE SYSTEM P-R Interval 168 ms MUSE SYSTEM QRS Duration 104 ms MUSE SYSTEM Q-T Interval 462 ms MUSE SYSTEM QTC Calculated 515 ms MUSE SYSTEM (Bezet) Calculated P [place] 52 degrees MUSE SYSTEM Calculated R [place] -40 degrees MUSE SYSTEM Calculated T [place] 39 degrees MUSE SYSTEM INTERPRETATION Normal sinus rhythm MUSE SYSTEM Possible Left atrial enlargement Left axis deviation Incomplete right bundle branch block Inferior infarct , age undetermined Cannot rule out Anterior infarct (cited on or before 2016) Prolonged QT Abnormal ECG When compared with ECG of 06-JUL-2017 12:00, Incomplete right bundle branch block is now Present 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 Confirmed by MD Ortega Timothy ([id number]) on 07/08/2017 8:11:05 AM Specimen Anatomical Collection Method Collection Time Receive d Time (Source) Location / / Volume Laterality 07/07/2017 7:17 PM 7 8:11 EST AM EST Yuan Webber MD ECG ORDERABLES Performing Organization Address City/State/ZIP Code Phon e Number MUSE SYSTEM XR Chest PA or AP 1 view (07/07/2017 7:12 PM EST) Anatomical Region Laterality Modality Chest N/A Digital Radiography Specimen (Source) Anatomical Location Collection Method / Collectio n Time Received Time / Laterality Volume Impressions 07/07/2017 7:39 PM EST Postsurgical changes consistent with recent coronary artery bypass graft. Narrative 07/07/2017 7:39 PM EST EXAMINATION: XR CHEST PA OR AP 1 VIEW CLINICAL HISTORY: cabg TECHNIQUE: Single portable AP chest COMPARISON: Preoperative study 07/07/2017. FINDINGS: Sternotomy wires are now present at midl ine. The patient has been intubated and there is a pulmonary artery catheter in place extending to the pulmonary outflow tract on the right. A left-sided chest drain and a mediastin al drain are in place. There is a left pleural effusion and bibasilar atelectas is is also present. No large pneumothorax is identified. There is no change in the position of th e aortic counterpulsation balloon. Procedure Note Braden Borges MD - 07/07/2017Forma tting of this note might be different from the original. EXAMINATION: XR CHEST PA OR AP 1 VIEW CLINICAL HISTORY: cabg TECHNIQUE: Single portable AP chest COMPARISON: Preoperative study 07/07/2017. FINDINGS: Sternotomy wires are now present at midl ine. The patient has been intubated and there is a pulmonary artery catheter in place extending to the pulmonary outflow tract on the right. A left-sided chest drain and a mediastin al drain are in place. There is a left pleural effusion and bibasilar atelectas is is also present. No large pneumothorax is identified. There is no change in the position of th e aortic counterpulsation balloon. IMPRESSION Postsurgical changes consistent with rec ent coronary artery bypass graft. Yuan Webber MD IMG DX ORDERABLES (ABNORMAL) BLOOD GAS 2 ARTERIAL (07/07/2017 6:57 PM EST) athologist Signature pH Art 7.21 7.35 - [facility] (Critical) 7.45 [facility] Comment: Noted by survey instrument operator. pCO2 Art 50 (H) 35 - 45 mmHg [facility] pO2 Art 238 (H) 85 - 104 mmHg [facility] HCO3 Art 19.8 (L) 20.0 - 26.0 mmol/L [facility] BE Art -8.1 (L) -3.0 - 3.0 mmol/L [facility] Hgb Blood Gas 12.8 (L) 13.7 - 16.5 gm/dL [facility] O2HB Art 97.5 (H) 94.0 - 97.0 % [facility] COHB Art 0.5 % [facility] Comment: Nonsmokers: 0.5-1.5% COHB Smokers: Variable, but usually less than 10% Toxic: 20-30% COHB Lethal: Greater than 60% COHB METHB Art 0.7 <=1.5 % [facility] Na Whole Blood 140 135 - 145 mmol/L [facility] K Whole Blood 3.0 (Critical) 3.5 - 5.0 mmol/L [facility] Comment: Noted by survey instrument operator. Please note: Patients with WBC >100,000 may have falsely elevated Potassium levels. Contact the Clinical Chemistry L aboratory if there are any questions. ICa Whole Blood 1.07 (L) 1.15 - 1.33 mmol/L [facility] Comment: Note: ??Total bilirubin higher than 20 m g/dL may lead to falsely low ionized calcium. CL Whole Blood 107 98 - 107 mmol/L [facility] Gluc Whole Bld 270 (H) 65 - 199 mg/dL [facility] Comment: Diabetes: >=200 mg/dL plus symp toms. Lactate WB 4.9 (Critical) 0.5 - 2.2 mmol/L [facility] Comment: Noted by survey instrument operator. FIO2 Art 100 % [facility] PF Ratio Art 238 [facility] Specimen Anatomical Collection Method Collection Time Receive d Time (Source) Location / / Volume Laterality Blood specimen 07/07/2017 6:57 PM 017 6:57 (specimen) EST PM EST Daphne Shahid MD CHEMISTRY ORDERABLES Performing Organization Address City/State/[place] [address] (ABNORMAL) BLOOD GAS 2 ARTERIAL (07/07/2017 5:31 PM EST) P athologist Signature pH Art 7.29 7.35 - [facility] (Critical) 7.45 [facility] Comment: Noted by survey instrument operator. pCO2 Art 48 (H) 35 - 45 mmHg [facility] pO2 Art 137 (H) 85 - 104 mmHg [facility] HCO3 Art 22.4 20.0 - 26.0 mmol/L [facility] BE Art -4.3 (L) -3.0 - 3.0 mmol/L [facility] Hgb Blood Gas 10.0 (L) 13.7 - 16.5 gm/dL [facility] O2HB Art 97.3 (H) 94.0 - 97.0 % [facility] COHB Art 0.3 % [facility] Comment: Nonsmokers: 0.5-1.5% COHB Smokers: Variable, but usually less than 10% Toxic: 20-30% COHB Lethal: Greater than 60% COHB METHB Art 0.3 <=1.5 % [facility] Na Whole Blood 132 (L) 135 - 145 mmol/L [facility] K Whole Blood 4.0 3.5 - 5.0 mmol/L [facility] Comment: Please note: Patients with WBC >100,000 may have falsely elevated Potassium levels. Contact the Clinical Chemistry L aboratory if there are any questions. ICa Whole Blood 1.14 (L) 1.15 - 1.33 mmol/L [facility] Comment: Note: ??Total bilirubin higher than 20 m g/dL may lead to falsely low ionized calcium. CL Whole Blood 105 98 - 107 mmol/L [facility] Gluc Whole Bld 293 (H) 65 - 199 mg/dL [facility] Comment: Diabetes: >=200 mg/dL plus symp toms. Lactate WB 3.1 (H) 0.5 - 2.2 mmol/L [facility] Specimen Anatomical Collection Method Collection Time Receive d Time (Source) Location / / Volume Laterality Blood specimen 07/07/2017 5:31 PM 017 5:31 (specimen) EST PM EST Daphne Shahid MD CHEMISTRY ORDERABLES Performing Organization Address City/State/[place] [address] Fibrinogen (07/07/2017 5:30 PM EST) athologist Signature Fibrinogen 224 180 - 510 [facility] mg/dL [facility] Comment: Called by: JEET, Read back by: Monica Campos on/OR16, Date/Time:07/07/17 17:48. A fibrinogen level >100 mg/dL is adequat e for hemostasis in most patients without underlying bleeding disorders. Specimen Anatomical Collection Method Collection Time Receive d Time (Source) Location / / Volume Laterality Blood specimen 07/07/2017 5:30 PM 017 5:34 (specimen) EST PM EST Resulting Agency Comment Spec In Lab Yifan Perez MD HEMATOLOGY ORDERABLES Performing Organization Address City/[facility]/ZIP Code Phon e Number [address] APTT (07/07/2017 5:30 PM EST) athologist Signature PTT 30 25 - 35 sec [facility] Comment: The recommended therapeutic range for fu ll dose, unfractionated heparin at [facility] is 80 ? 114 seconds. The use of the anti-Xa (heparin) level rather than the PTT is recommended for monitoring anticoagul ation intensity in critically ill patients receiving unfractionated hepari n by continuous IV infusion. Specimen Anatomical Collection Method Collection Time Receive d Time (Source) Location / / Volume Laterality Blood specimen 07/07/2017 5:30 PM 017 5:34 (specimen) EST PM EST Resulting Agency Comment Spec In Lab Yifan Perez MD HEMATOLOGY ORDERABLES Performing Organization Address City/[facility]/[place] [address] (ABNORMAL) Prothrombin Time (07/07/2017 5:30 PM EST) athologist Signature PT 19.0 (H) 11.8 - 14.0 [facility] LABORATORY INR 1.6 (H) 0.9 - 1.1 [facility] Comment: An INR <2.0 [...] Location / / Volume Laterality Blood specimen 07/07/2017 5:30 PM 017 5:34 (specimen) EST PM EST Resulting Agency Comment Spec In Lab Yifan Perez MD HEMATOLOGY ORDERABLES Performing Organization Address City/State/[place] [address] (ABNORMAL) Hemogram (07/07/2017 5:30 PM EST) athologist Signature WBC 19.6 (H) 4.0 - 9.5 [facility] x10(3)/[facility] LABORATORY RBC 3.08 (L) 4.58 - [facility] 5.54 [facility] x10(6)/[facility] LABORATORY Hemoglobin 9.2 (L) 13.7 - [facility] 16.5 gm/dL [facility] Hematocrit 28.0 (L) 40.5 - [facility] 48.5 % [facility] Comment: This result has been called to MONICA WEINSTEIN LUISA by DONALD GROSSMAN on 07 07 2017 at 1759, and has been read back. MCV 90.9 82.9 - 93.1 fL [facility] MCH 29.9 27.5 - 32.1 pg [facility] MCHC 32.9 32.0 - 35.7 gm/dL [facility] Platelets 155 145 - 357 x10(3)/[facility] LABORATORY RDWSD 46.5 (H) 36.0 - 45.0 [facility] LABORATORY RDWCV 14.1 (H) 11.4 - 13.8 % [facility] MPV 9.5 7.6 - 12.9 [facility] LABORATORY nRBC % Auto 0.0 % [facility] nRBC Abs Auto 0.000 0.000 - 0.000 x10(3)/[facility] Specimen Anatomical Collection Method Collection Time Receive d Time (Source) Location / / Volume Laterality Blood specimen 07/07/2017 5:30 PM 017 5:34 (specimen) EST PM EST Resulting Agency Comment Spec In Lab Yifan Perez MD HEMATOLOGY ORDERABLES Performing Organization Address [facility] Phon e Number [address] Prepare Platelets, Apheresis (07/07/2017 5:00 PM EST) P athologist Signature Dispensed? Yes [facility] Specimen Anatomical Collection Method Collection Time Receive d Time (Source) Location / / Volume Laterality Blood specimen 07/07/2017 5:00 PM 017 4:58 (specimen) EST PM EST Daphne Shahid MD BLOOD BANK ORDERABLES Performing Organization Address City/[facility] Phon e Number [address] Platelet count (07/07/2017 4:55 PM EST) P athologist Signature Platelets 177 145 - 357 [facility] x10(3)/[facility] LABORATORY Plat Immature 1.5 0.0 - 7.4 [facility] % % [facility] Comment: Limitation of the Immature Platelet Frac tion (IPF)-May be less reliable when the platelet count is less than [id number]/u L due to statistical imprecision. The IPF value provides an assessment of the Bone Marrow production status. ??It is useful in differentiating Thrombocyto penia caused by platelet destruction/consumption versus decreased production. It also helps to determine the imminent release of platelets and ca n be therefore a helpful parameter in Chemotherapy and Bone marrow transplant patients. ELEVATED IPF value: ?? When the bone marrow is in a state of over production such as when increased destruction and consumption are the unde rlying issue. ?? When the marrow is recovering post ch emotherapy or bone marrow transplant. LOW to NORMAL IPF value: ?? When the bone marrow in not respondin g and is in a decreased state of production. References: [employer] The Clinical Value of the Immature Platelet Fraction (IPF) in Cell Recovery Document Number 10-1143 12/2010 [employer] The Role of the Imm ature Platelet Fraction (IPF) in the Differential Diagnosis of Thrombocytopen ia, Document [id number] V05/07/08 P012/06 Specimen Anatomical Collection Method Collection Time Receive d Time (Source) Location / / Volume Laterality Blood specimen 07/07/2017 4:55 PM 017 5:13 (specimen) EST PM EST Resulting Agency Comment Spec In Lab Daphne Shahid MD HEMATOLOGY ORDERABLES Performing Organization Address City/State/[place] [address] (ABNORMAL) Hemoglobin and Hematocrit, blood (07/07/2017 4:55 PM EST) P athologist Signature Hemoglobin 9.1 (L) 13.7 - 16.5 [facility] gm/dL [facility] Comment: This result has been called to MALKA MORAN by DONALD GROSSMAN on 07 07 2017 at 1734, and has been read back. Hematocrit 26.6 (L) 40.5 - 48.5 % [facility] Comment: This result has been called to MALKA MORAN by DONALD GROSSMAN on 07 07 2017 at 1734, and has been read back. Specimen Anatomical Collection Method Collection Time Receive d Time (Source) Location / / Volume Laterality Blood specimen 07/07/2017 4:55 PM 017 5:13 (specimen) EST PM EST Resulting Agency Comment Spec In Lab Daphne Shahid MD HEMATOLOGY ORDERABLES Performing Organization Address City/State/[place] [address] (ABNORMAL) BLOOD GAS 2 ARTERIAL (07/07/2017 4:38 PM EST) Analysis Performed At Patho logist Time Signature pH Art 7.37 7.35 - [facility] 7.45 [facility] pCO2 Art 44 35 - 45 [facility] mmHg [facility] pO2 Art 322 (H) 85 - 104 [facility]ORY HCO3 Art 24.9 20.0 - [facility] 26.0 [facility] mmol/L [facility] BE Art -0.4 -3.0 - 3.0 [facility] mmol/L [facility] Hgb Blood Gas 10.1 (L) 13.7 - [facility] 16.5 gm/dL [facility] O2HB Art 98.7 (H) 94.0 - [facility] 97.0 % [facility] COHB Art 0.1 % [facility] Comment: Nonsmokers: 0.5-1.5% COHB Smokers: Variable, but usually less than 10% Toxic: 20-30% COHB Lethal: Greater than 60% COHB METHB Art 0.3 <=1.5 % [facility] Na Whole Blood 130 (L) 135 - 145 mmol/L [facility] K Whole Blood 5.7 (H) 3.5 - 5.0 mmol/L [facility] Comment: Please note: Patients with WBC >100,000 may have falsely elevated Potassium levels. Contact the Clinical Chemistry L aboratory if there are any questions. ICa Whole Blood 0.89 (Critical) 1.15 - 1.33 mmol/L [facility] Comment: Noted by survey instrument operator. Note: ??Total bilirubin higher than 20 m g/dL may lead to falsely low ionized calcium. CL Whole Blood 101 98 - 107 mmol/L [facility] Gluc Whole Bld 295 (H) 65 - 199 mg/dL [facility] Comment: Diabetes: >=200 mg/dL plus symp toms. Lactate WB 1.7 0.5 - 2.2 mmol/L [facility] Specimen Anatomical Collection Method Collection Time Receive d Time (Source) Location / / Volume Laterality Blood specimen 07/07/2017 4:38 PM 017 4:38 (specimen) EST PM EST Daphne Shahid MD CHEMISTRY ORDERABLES Performing Organization Address City/State/[place] [address] (ABNORMAL) BLOOD GAS 2 VENOUS (07/07/2017 4:06 PM EST) Analysis Performed At Patho logist Time Signature pH Cody 7.31 (L) 7.32 - [facility] 7.42 [facility] pCO2 Cody 47 41 - 51 [facility]ORY pO2 Cody 53 (H) 25 - 40 [facility]OR[facility]ORY HCO3 Cody 22.7 mmol/L [facility] BE Cody -3.7 mmol/L [facility] Hgb Blood Gas 10.2 (L) 13.7 - [facility] 16.5 gm/dL [facility] O2HB Cody 81.0 % [facility] COHB Cody 1.0 % [facility] Comment: Nonsmokers: 0.5-1.5% COHB Smokers: Variable, but usually less than 10% Toxic: 20-30% COHB Lethal: Greater than 60% COHB METHB Cody 0.3 <=1.5 % [facility] Na Whole Blood 132 (L) 135 - 145 mmol/L [facility] K Whole Blood 5.3 (H) 3.5 - 5.0 mmol/L [facility] Comment: Please note: Patients with WBC >100,000 may have falsely elevated Potassium levels. Contact the Clinical Chemistry L aboratory if there are any questions. ICa Whole Blood 0.90 (Critical) 1.15 - 1.33 mmol/L [facility] Comment: Noted by survey instrument operator. Note: ??Total bilirubin higher than 20 m g/dL may lead to falsely low ionized calcium. CL Whole Blood 100 98 - 107 mmol/L [facility] Gluc Whole Bld 231 (H) 65 - 199 mg/dL [facility] Comment: Diabetes: >=200 mg/dL plus symp toms Lactate WB 1.1 0.5 - 2.2 mmol/L [facility] BGas Source Venous [facility] Specimen Anatomical Collection Method Collection Time Receive d Time (Source) Location / / Volume Laterality Blood specimen 07/07/2017 4:06 PM 017 4:06 (specimen) EST PM EST Daphne Shahid MD CHEMISTRY ORDERABLES Performing Organization Address City/State/[place] [address] (ABNORMAL) BLOOD GAS 2 ARTERIAL (07/07/2017 4:05 PM EST) Analysis Performed At Patho logist Time Signature pH Art 7.36 7.35 - [facility] 7.45 [facility] pCO2 Art 40 35 - 45 [facility] mmHg [facility] pO2 Art 282 (H) 85 - 104 [facility] LABORATORY HCO3 Art 22.1 20.0 - [facility] 26.0 [facility] mmol/L [facility] BE Art -3.4 (L) -3.0 - 3.0 [facility] mmol/L [facility] Hgb Blood Gas 10.2 (L) 13.7 - [facility] 16.5 gm/dL [facility] O2HB Art 98.4 (H) 94.0 - [facility] 97.0 % [facility] COHB Art 0.3 % [facility] Comment: Nonsmokers: 0.5-1.5% COHB Smokers: Variable, but usually less than 10% Toxic: 20-30% COHB Lethal: Greater than 60% COHB METHB Art 0.3 <=1.5 % [facility] Na Whole Blood 131 (L) 135 - 145 mmol/L [facility] K Whole Blood 5.4 (H) 3.5 - 5.0 mmol/L [facility] Comment: Please note: Patients with WBC >100,000 may have falsely elevated Potassium levels. Contact the Clinical Chemistry L aboratory if there are any questions. ICa Whole Blood 0.86 (Critical) 1.15 - 1.33 mmol/L [facility] Comment: Noted by survey instrument operator. Note: ??Total bilirubin higher than 20 m g/dL may lead to falsely low ionized calcium. CL Whole Blood 101 98 - 107 mmol/L [facility] Gluc Whole Bld 260 (H) 65 - 199 mg/dL [facility] Comment: Diabetes: >=200 mg/dL plus symp toms. Lactate WB 1.4 0.5 - 2.2 mmol/L [facility] Specimen Anatomical Collection Method Collection Time Receive d Time (Source) Location / / Volume Laterality Blood specimen 07/07/2017 4:05 PM 017 4:05 (specimen) EST PM EST Daphne Shahid MD CHEMISTRY ORDERABLES Performing Organization Address City/State/[place] [address] (ABNORMAL) BLOOD GAS 2 ARTERIAL (07/07/2017 2:29 PM EST) Analysis Performed At Patho logist Time Signature pH Art 7.43 7.35 - [facility] 7.45 [facility] pCO2 Art 36 35 - 45 [facility] mmHg [facility] pO2 Art 221 (H) 85 - 104 [facility] LABORATORY HCO3 Art 23.2 20.0 - [facility] 26.0 [facility] mmol/L [facility] BE Art -1.2 -3.0 - 3.0 [facility] mmol/L [facility] Hgb Blood Gas 13.9 13.7 - [facility] 16.5 gm/dL [facility] O2HB Art 97.8 (H) 94.0 - [facility] 97.0 % [facility] COHB Art 1.1 % [facility] Comment: Nonsmokers: 0.5-1.5% COHB Smokers: Variable, but usually less than 10% Toxic: 20-30% COHB Lethal: Greater than 60% COHB METHB Art 0.3 <=1.5 % [facility] Na Whole Blood 139 135 - 145 mmol/L [facility] K Whole Blood 4.0 3.5 - 5.0 mmol/L [facility] Comment: Please note: Patients with WBC >100,000 may have falsely elevated Potassium levels. Contact the Clinical Chemistry L aboratory if there are any questions. ICa Whole Blood 1.11 (L) 1.15 - 1.33 mmol/L [facility] Comment: Note: ??Total bilirubin higher than 20 m g/dL may lead to falsely low ionized calcium. CL Whole Blood 104 98 - 107 mmol/L [facility] Gluc Whole Bld 184 65 - 199 mg/dL [facility] Comment: Diabetes: >=200 mg/dL plus symp toms. Lactate WB 1.5 0.5 - 2.2 mmol/L [facility] Specimen Anatomical Collection Method Collection Time Receive d Time (Source) Location / / Volume Laterality Blood specimen 07/07/2017 2:29 PM 017 2:29 (specimen) EST PM EST Daphne Shahid MD CHEMISTRY ORDERABLES Performing Organization Address City/[facility]/ZIP Code Phon e Number [address] Prepare Coag Factors (Non-Hemophilia) (07/07/2017 1:25 PM EST) P athologist Signature Dispensed? Yes [facility] Specimen Anatomical Collection Method Collection Time Receive d Time (Source) Location / / Volume Laterality Blood specimen 07/07/2017 1:25 PM 017 1:21 (specimen) EST PM EST Daphne Shahid MD BLOOD BANK ORDERABLES Performing Organization Address City/[facility]/[place] [address] Prepare RBC (07/07/2017 1:10 PM EST) P athologist Signature Dispensed? Yes [facility] Specimen Anatomical Collection Method Collection Time Receive d Time (Source) Location / / Volume Laterality Blood specimen 07/07/2017 1:10 PM 017 1:05 (specimen) EST PM EST Daphne Shahid MD BLOOD BANK ORDERABLES Performing Organization Address City/[facility]/[place] [address] POCT Glucose (07/07/2017 11:56 AM EST) P athologist Signature POC Glucose 188 65 - 199 [facility] mg/dL [facility] Comment: Supplemental ranges: <140 mg/dL before meals <180 mg/dL all other times of the day Specimen Anatomical Collection Method Collection Time Receive d Time (Source) Location / / Volume Laterality Blood specimen 07/07/2017 11:56 7 (specimen) AM EST 11:56 AM EST Daphne Shahid MD POINT OF CARE TEST ORDERABLE S Performing Organization Address City/[facility]/ZIP Code Phon e Number [address] POCT Glucose (07/07/2017 11:05 AM EST) P athologist Signature POC Glucose 168 65 - 199 [place] RYAN mg/dL [facility] Comment: Supplemental ranges: <140 mg/dL before meals <180 mg/dL all other times of the day Specimen Anatomical Collection Method Collection Time Receive d Time (Source) Location / / Volume Laterality Blood specimen 07/07/2017 11:05 7 (specimen) AM EST 11:05 AM EST Daphne Shahid MD POINT OF CARE TEST ORDERABLE S Performing Organization Address City/[facility]/ZIP Code Phon e Number [address] POCT Glucose (07/07/2017 10:02 AM EST) P athologist Signature POC Glucose 191 65 - 199 [place] RYAN mg/dL [facility] Comment: Supplemental ranges: <140 mg/dL before meals <180 mg/dL all other times of the day Specimen Anatomical Collection Method Collection Time Receive d Time (Source) Location / / Volume Laterality Blood specimen 07/07/2017 10:02 7 (specimen) AM EST 10:02 AM EST Daphne Shahid MD POINT OF CARE TEST ORDERABLE S Performing Organization Address City/[facility]/ZIP Code Phon e Number [address] POCT Glucose (07/07/2017 7:53 AM EST) P athologist Signature POC Glucose 178 65 - 199 [facility] Comment: Supplemental ranges: <140 mg/dL before meals <180 mg/dL all other times of the day Specimen Anatomical Collection Method Collection Time Receive d Time (Source) Location / / Volume Laterality Blood specimen 07/07/2017 7:53 AM 017 7:53 (specimen) EST AM EST Daphne Shahid MD POINT OF CARE TEST ORDERABLE S Performing Organization Address City/State/ZIP Code Phon e Number [address] POCT Glucose (07/07/2017 7:03 AM EST) athologist Signature POC Glucose 188 65 - 199 [facility] Comment: Supplemental ranges: <140 mg/dL before meals <180 mg/dL all other times of the day Specimen Anatomical Collection Method Collection Time Receive d Time (Source) Location / / Volume Laterality Blood specimen 07/07/2017 7:03 AM 017 7:03 (specimen) EST AM EST Daphne Shahid MD POINT OF CARE TEST ORDERABLE S Performing Organization Address City/[facility]/[place] [address] (ABNORMAL) POCT Glucose (07/07/2017 6:17 AM EST) athologist Signature POC Glucose 207 (H) 65 - 199 [facility] Comment: Supplemental ranges: <140 mg/dL before meals <180 mg/dL all other times of the day Specimen Anatomical Collection Method Collection Time Receive d Time (Source) Location / / Volume Laterality Blood specimen 07/07/2017 6:17 AM 017 6:17 (specimen) EST AM EST Daphne Shahid MD POINT OF CARE TEST ORDERABLE S Performing Organization Address City/[facility]/ZIP Code Phon e Number [address] Differential, Automated (07/07/2017 5:15 AM EST) athologist Signature Neutrophils % 69.7 % [facility] Neutr Abs (ANC) 5.32 1.70 - [facility] 6.10 [facility] x10(3)/[facility] LABORATORY Lymphocytes % 16.3 % [facility] Lymphocytes Abs 1.2 0.9 - 3.2 [facility] x10(3)/[facility] LABORATORY Monocytes % 10.5 % [facility] Monocyte Abs 0.8 0.3 - 0.9 [facility] x10(3)/[facility] LABORATORY Eosinophils % 2.5 % [facility] Eosinophils Abs 0.2 0.0 - 0.4 [facility] x10(3)/[facility] LABORATORY Basophils % 0.7 % [facility] Basophils Abs 0.0 0.0 - 0.1 [facility] x10(3)/[facility] LABORATORY Immature Gran % 0.30 % [facility] Comment: Immature granulocytes(IG's)percentage an d absolute count will include metamyelocytes, myelocytes, and promyelo cytes. Blood smears from CBCs yielding IG's will be scanned manually for concor dance. If this scan disagrees with the automated IG or if promyelocytes are not ed, a manual differential will be performed. Melisa Gran Abs 0.02 0.00 - 0.04 x10(3)/[facility] Specimen Anatomical Collection Method Collection Time Receive d Time (Source) Location / / Volume Laterality Blood specimen 07/07/2017 5:15 AM 017 5:34 (specimen) EST AM EST Resulting Agency Comment Spec In Lab Daphne Shahid MD HEMATOLOGY ORDERABLES Performing Organization Address City/State/[place] [address] (ABNORMAL) Hemogram (07/07/2017 5:15 AM EST) Analysis Performed At Patho logist Time Signature WBC 7.6 4.0 - 9.5 [facility] x10(3)/[facility] LABORATORY RBC 4.82 4.58 - [facility] 5.54 [facility] x10(6)/[facility] LABORATORY Hemoglobin 14.4 13.7 - [facility] 16.5 gm/dL [facility] Hematocrit 42.1 40.5 - [facility] 48.5 % [facility] MCV 87.3 82.9 - [facility] 93.1 fL [facility] MCH 29.9 27.5 - [facility] 32.1 pg [facility] MCHC 34.2 32.0 - [place] DAVIS 35.7 gm/dL [facility] Platelets 188 145 - 357 [facility] RYAN x10(3)/[facility] LABORATORY RDWSD 45.1 (H) 36.0 - [place] DAVIS 45.0 [facility] LABORATORY RDWCV 14.3 (H) 11.4 - [facility] RYAN 13.8 % [facility] MPV 9.4 7.6 - 12.9 [facility] RYAN [facility] LABORATORY nRBC % Auto 0.0 % [facility] nRBC Abs Auto 0.000 0.000 - [place] DAVIS 0.000 [facility] x10(3)/[facility] LABORATORY Specimen Anatomical Collection Method Collection Time Receive d Time (Source) Location / / Volume Laterality Blood specimen 07/07/2017 5:15 AM 017 5:34 (specimen) EST AM EST Resulting Agency Comment Spec In Lab Daphne Shahid MD HEMATOLOGY ORDERABLES Performing Organization Address City/[facility]/ZIP Code Phon e Number [address] (ABNORMAL) APTT (07/07/2017 5:15 AM EST) P athologist Signature PTT 69 (H) 25 - 35 sec [facility] Comment: The recommended therapeutic range for fu ll dose, unfractionated heparin at [facility] is 80 ? 114 seconds. The use of the anti-Xa (heparin) level rather than the PTT is recommended for monitoring anticoagul ation intensity in critically ill patients receiving unfractionated hepari n by continuous IV infusion. Specimen Anatomical Collection Method Collection Time Receive d Time (Source) Location / / Volume Laterality Blood specimen 07/07/2017 5:15 AM 017 5:34 (specimen) EST AM EST Resulting Agency Comment Spec In Lab Daphne Shahid MD HEMATOLOGY ORDERABLES Performing Organization Address City/[facility]/ZIP Code Phon e Number [address] Magnesium (07/07/2017 5:15 AM EST) P athologist Signature Magnesium 0.94 0.69 - 1.07 [facility] mmol/L [facility] Specimen Anatomical Collection Method Collection Time Receive d Time (Source) Location / / Volume Laterality Blood specimen 07/07/2017 5:15 AM 017 5:34 (specimen) EST AM EST Resulting Agency Comment Spec In Lab Daphne Shahid MD CHEMISTRY ORDERABLES Performing Organization Address City/State/[place] [address] (ABNORMAL) Basic Metabolic Panel (non-fasting) (07/07/2017 5:15 AM EST) P athologist Signature Glucose Lvl 203 (H) 65 - 199 [facility] mg/dL [facility] Comment: Diabetes: >=200 mg/dL plus symp toms BUN 15 10 - 20 mg/dL [facility] Creatinine 1.09 0.80 - 1.50 mg/dL [facility] Sodium 142 135 - 145 mmol/L [facility] Potassium 4.4 3.5 - 5.0 mmol/L [facility] Comment: Please note: ??Patients with WBC >100,00 0 may have falsely elevated Potassium levels. ??For accurate Potassium quantif ication in these patients send serum separator tube (gold top) for subsequent determinations. ??Contact the Clinical Chemistry Laboratory if there are any qu estions. Chloride 102 98 - 107 mmol/L [facility] CO2 26 22 - 31 mmol/L [facility] Anion Gap 14 5 - 15 mmol/L [facility] Calcium 8.6 8.5 - 10.5 mg/dL [facility] Estimated GFR >60 >=60 [facility] Comment: The reported eGFR should be multiplied b y 1.2 for patients. The MDRD is not an appropriate measure o f renal function for patients with body mass extremes or in patients with acute kidney failure. http://Complix/DHnkdep http://Complix/DHMCnkf Specimen Anatomical Collection Method Collection Time Receive d Time (Source) Location / / Volume Laterality Blood specimen 07/07/2017 5:15 AM 017 5:34 (specimen) EST AM EST Resulting Agency Comment Spec In Lab Daphne Shahid MD CHEMISTRY ORDERABLES Performing Organization Address City/[facility]/ZIP Code Phon e Number [address] (ABNORMAL) Cardiac Enzymes (LEB/CGP) (07/07/2017 5:15 AM EST) athologist Signature Troponin-T 2.07 (H) 0.00 - [place] RYAN 0.00 ng/mL [facility] Comment: The 99th percentile for Troponin T is le ss than 0.01 ng/mL, any detectable cTnT concentration using this assay should be considered elevated. According to the third universal definit ion of myocardial infarction the following criteria with a clinical prese ntation consistent with acute myocardial ischemia meets the diagnosis for a myocardial infarction (MT). Detection of a rise and/or fall of [...] additional sample may be indicated. Reference: [employer] Definition of Myocardial Infarction. Journal of the [employer] 2012;60:1581-98 CK, Total 88 0 - 200 unit/L [facility] Specimen Anatomical Collection Method Collection Time Receive d Time (Source) Location / / Volume Laterality Blood specimen 07/07/2017 5:15 AM 017 5:34 (specimen) EST AM EST Resulting Agency Comment Spec In Lab Daphne Shahid MD CHEMISTRY ORDERABLES Performing Organization Address City/State/ZIP Code Phon e Number [address] POCT Glucose (07/07/2017 5:01 AM EST) athologist Signature POC Glucose 182 65 - 199 [facility] RYAN mg/dL [facility] Comment: Supplemental ranges: <140 mg/dL before meals <180 mg/dL all other times of the day Specimen Anatomical Collection Method Collection Time Receive d Time (Source) Location / / Volume Laterality Blood specimen 07/07/2017 5:01 AM 017 5:01 (specimen) EST AM EST Daphne Shahid MD POINT OF CARE TEST ORDERABLE S Performing Organization Address City/State/ZIP Code Phon e Number [address] POCT Glucose (07/07/2017 4:08 AM EST) athologist Signature POC Glucose 199 65 - 199 [facility] Comment: Supplemental ranges: <140 mg/dL before meals <180 mg/dL all other times of the day Specimen Anatomical Collection Method Collection Time Receive d Time (Source) Location / / Volume Laterality Blood specimen 07/07/2017 4:08 AM 017 4:08 (specimen) EST AM EST Daphne Shahid MD POINT OF CARE TEST ORDERABLE S Performing Organization Address City/State/[place] [address] POCT Glucose (07/07/2017 3:03 AM EST) athologist Signature POC Glucose 188 65 - 199 [facility] RYAN mg/dL [facility] Comment: Supplemental ranges: <140 mg/dL before meals <180 mg/dL all other times of the day Specimen Anatomical Collection Method Collection Time Receive d Time (Source) Location / / Volume Laterality Blood specimen 07/07/2017 3:03 AM 017 3:03 (specimen) EST AM EST Daphne Shahid MD POINT OF CARE TEST ORDERABLE S Performing Organization Address City/State/[place] [address] (ABNORMAL) POCT Glucose (07/07/2017 2:08 AM EST) athologist Signature POC Glucose 200 (H) 65 - 199 [facility] Comment: Supplemental ranges: <140 mg/dL before meals <180 mg/dL all other times of the day Specimen Anatomical Collection Method Collection Time Receive d Time (Source) Location / / Volume Laterality Blood specimen 07/07/2017 2:08 AM 017 2:08 (specimen) EST AM EST Daphne Shahid MD POINT OF CARE TEST ORDERABLE S Performing Organization Address City/State/[place] [address] (ABNORMAL) POCT Glucose (07/07/2017 1:31 AM EST) athologist Signature POC Glucose 209 (H) 65 - 199 [facility] Comment: Supplemental ranges: <140 mg/dL before meals <180 mg/dL all other times of the day Specimen Anatomical Collection Method Collection Time Receive d Time (Source) Location / / Volume Laterality Blood specimen 07/07/2017 1:31 AM 017 1:31 (specimen) EST AM EST Daphne Shahid MD POINT OF CARE TEST ORDERABLE S Performing Organization Address City/[facility]/[place] [address] XR Chest PA or AP 1 view (07/07/2017 1:27 AM EST) Anatomical Region Laterality Modality Chest N/A Digital Radiography Specimen (Source) Anatomical Location Collection Method / Collectio n Time Received Time / Laterality Volume Impressions 07/07/2017 7:54 AM EST FINDINGS/IMPRESSION: Intra-aortic balloon pump tip appears mi ldly retracted in the interval, approximately 3.7 cm below the superior aspect of the aortic knob. Similar to mildly improved mild interstitial edema. No other appreciable change in appearance of the chest. Narrative 07/07/2017 7:54 AM EST EXAMINATION: XR CHEST PA OR AP 1 VIEW CLINICAL HISTORY: eval IABP positioning TECHNIQUE: Frontal chest COMPARISON: July 06, 2017 Procedure Note Jesús Menendez MD - 07/07/2017 EXAMINATION: XR CHEST PA OR AP 1 VIEW CLINICAL HISTORY: eval IABP positioning TECHNIQUE: Frontal chest COMPARISON: July 06, 2017 IMPRESSION FINDINGS/IMPRESSION: Intra-aortic balloon pump tip appears mi ldly retracted in the interval, approximately 3.7 cm below the superior aspect of the aortic knob. Similar to mildly improved mild interstitial edema. No other appreciable change in appearance of the chest. Daphne Shahid MD IMG DX ORDERABLES POCT Glucose (07/07/2017 12:07 AM EST) athologist Signature POC Glucose 161 65 - 199 [facility] mg/dL [facility] Comment: Supplemental ranges: <140 mg/dL before meals <180 mg/dL all other times of the day Specimen Anatomical Collection Method Collection Time Receive d Time (Source) Location / / Volume Laterality Blood specimen 07/07/2017 12: 7 (specimen) AM EST 12:07 AM EST Daphne Shahid MD POINT OF CARE TEST ORDERABLE S Performing Organization Address City/State/[place] [address] (ABNORMAL) APTT (07/07/2017 12:00 AM EST) athologist Signature PTT 103 (H) 25 - 35 sec [facility] Comment: The recommended therapeutic range for fu ll dose, unfractionated heparin at [facility] is 80 ? 114 seconds. The use of the anti-Xa (heparin) level rather than the PTT is recommended for monitoring anticoagul ation intensity in critically ill patients receiving unfractionated hepari n by continuous IV infusion. Specimen (Source) Anatomical Collection Method Collection Time Re ceived Time Location / / Volume Laterality Blood specimen 07/07/2017 07/07/2017 12 :13 (specimen) AM EST Resulting Agency Comment Spec In Lab Daphne Shahid MD HEMATOLOGY ORDERABLES Performing Organization Address City/State/ZIP Code Phon e Number [place] POCT Glucose (07/06/2017 9:55 PM EST) athologist Signature POC Glucose 109 65 - 199 [facility] RYAN mg/dL [facility] Comment: Supplemental ranges: <140 mg/dL before meals <180 mg/dL all other times of the day Specimen Anatomical Collection Method Collection Time Receive d Time (Source) Location / / Volume Laterality Blood specimen 07/06/2017 9:55 PM 017 9:55 (specimen) EST PM EST Daphne Shahid MD POINT OF CARE TEST ORDERABLE S Performing Organization Address City/State/ZIP Code Phon e Number [address] POCT Glucose (07/06/2017 9:04 PM EST) athologist Signature POC Glucose 120 65 - 199 [facility] mg[facility]dL [facility] Comment: Supplemental ranges: <140 mg/dL before meals <180 mg/dL all other times of the day Specimen Anatomical Collection Method Collection Time Receive d Time (Source) Location / / Volume Laterality Blood specimen 07/06/2017 9:04 PM 017 9:04 (specimen) EST PM EST Daphne Shahid MD POINT OF CARE TEST ORDERABLE S Performing Organization Address City/State/ZIP Code Phon e Number [address] POCT Glucose (07/06/2017 7:45 PM EST) athologist Signature POC Glucose 158 65 - 199 [facility] mg/dL [facility] Comment: Supplemental ranges: <140 mg/dL before meals <180 mg/dL all other times of the day Specimen Anatomical Collection Method Collection Time Receive d Time (Source) Location / / Volume Laterality Blood specimen 07/06/2017 7:45 PM 017 7:45 (specimen) EST PM EST Daphne Shahid MD POINT OF CARE TEST ORDERABLE S Performing Organization Address City/State/[place] [address] Potassium (07/06/2017 7:40 PM EST) athologist Signature Potassium 3.9 3.5 - 5.0 [facility] mmol/L [facility] Comment: Please note: ??Patients with WBC >100,00 0 may have falsely elevated Potassium levels. ??For accurate Potassium quantif ication in these patients send serum separator tube (gold top) for subsequent determinations. ??Contact the Clinical Chemistry Laboratory if there are any qu estions. Specimen Anatomical Collection Method Collection Time Receive d Time (Source) Location / / Volume Laterality Blood specimen 07/06/2017 7:40 PM 017 7:52 (specimen) EST PM EST Resulting Agency Comment Spec In Lab Daphne Shahid MD CHEMISTRY ORDERABLES Performing Organization Address City/State/ZIP Code Phon e Number [place] [id number] (ABNORMAL) Cardiac Enzymes (LEB/CGP) (07/06/2017 7:40 PM EST) athologist Signature Troponin-T 2.27 (H) 0.00 - [facility] 0.00 ng/mL [facility] Comment: The 99th percentile for Troponin T is le ss than 0.01 ng/mL, any detectable cTnT concentration using this assay should be considered elevated. According to the third universal definit ion of myocardial infarction the following criteria with a clinical prese ntation consistent with acute myocardial ischemia meets the diagnosis for a myocardial infarction (MT). Detection of a rise and/or fall of [...] additional sample may be indicated. Reference: [employer] Definition of Myocardial Infarction. Journal of the [employer] [employer] 2012;60:1581-98 CK, Total 93 0 - 200 unit/L [facility] Specimen Anatomical Collection Method Collection Time Receive d Time (Source) Location / / Volume Laterality Blood specimen 07/06/2017 7:40 PM 017 7:52 (specimen) EST PM EST Resulting Agency Comment Spec In Lab Daphne Shahid MD CHEMISTRY ORDERABLES Performing Organization Address City/[facility]/[place] [address] (ABNORMAL) POCT Glucose (07/06/2017 7:13 PM EST) P athologist Signature POC Glucose 200 (H) 65 - 199 [facility] mg/dL [facility] Comment: Supplemental ranges: <140 mg/dL before meals <180 mg/dL all other times of the day Specimen Anatomical Collection Method Collection Time Receive d Time (Source) Location / / Volume Laterality Blood specimen 07/06/2017 7:13 PM 017 7:13 (specimen) EST PM EST Daphne Shahid MD POINT OF CARE TEST ORDERABLE S Performing Organization Address [facility] [place] [address] (ABNORMAL) APTT (07/06/2017 6:15 PM EST) P athologist Signature PTT 94 (H) 25 - 35 sec [facility] Comment: The recommended therapeutic range for fu ll dose, unfractionated heparin at [facility] is 80 ? 114 seconds. The use of the anti-Xa (heparin) level rather than the PTT is recommended for monitoring anticoagul ation intensity in critically ill patients receiving unfractionated hepari n by continuous IV infusion. Specimen Anatomical Collection Method Collection Time Receive d Time (Source) Location / / Volume Laterality Blood specimen 07/06/2017 6:15 PM 017 6:26 (specimen) EST PM EST Resulting Agency Comment Spec In Lab Daphne Shahid MD HEMATOLOGY ORDERABLES Performing Organization Address City/[facility]/[place] [address] (ABNORMAL) POCT Glucose (07/06/2017 6:03 PM EST) athologist Signature POC Glucose 236 (H) 65 - 199 [facility] mg/dL [facility] Comment: Supplemental ranges: <140 mg/dL before meals <180 mg/dL all other times of the day Specimen Anatomical Collection Method Collection Time Receive d Time (Source) Location / / Volume Laterality Blood specimen 07/06/2017 6:03 PM 017 6:03 (specimen) EST PM EST Daphne Shahid MD POINT OF CARE TEST ORDERABLE S Performing Organization Address City/State/ZIP Code Phon e Number [address] (ABNORMAL) POCT Glucose (07/06/2017 5:01 PM EST) athologist Signature POC Glucose 235 (H) 65 - 199 [facility] mg/dL [facility] Comment: Supplemental ranges: <140 mg/dL before meals <180 mg/dL all other times of the day Specimen Anatomical Collection Method Collection Time Receive d Time (Source) Location / / Volume Laterality Blood specimen 07/06/2017 5:01 PM 017 5:01 (specimen) EST PM EST Daphne Shahid MD POINT OF CARE TEST ORDERABLE S Performing Organization Address City/State/[place] [address] (ABNORMAL) POCT Glucose (07/06/2017 4:06 PM EST) athologist Signature POC Glucose 202 (H) 65 - 199 [facility] mg/dL [facility] Comment: Supplemental ranges: <140 mg/dL before meals <180 mg/dL all other times of the day Specimen Anatomical Collection Method Collection Time Receive d Time (Source) Location / / Volume Laterality Blood specimen 07/06/2017 4:06 PM 017 4:06 (specimen) EST PM EST Daphne Shahid MD POINT OF CARE TEST ORDERABLE S Performing Organization Address City/State/ZIP Code Phon e Number [address] POCT Glucose (07/06/2017 2:59 PM EST) athologist Signature POC Glucose 178 65 - 199 [facility] mg/dL [facility] Comment: Supplemental ranges: <140 mg/dL before meals <180 mg/dL all other times of the day Specimen Anatomical Collection Method Collection Time Receive d Time (Source) Location / / Volume Laterality Blood specimen 07/06/2017 2:59 PM 017 2:59 (specimen) EST PM EST Daphne Shahid MD POINT OF CARE TEST ORDERABLE S Performing Organization Address City/State/ZIP Code Phon e Number [address] (ABNORMAL) Cardiac Enzymes (LEB/CGP) (07/06/2017 2:10 PM EST) athologist Signature Troponin-T 2.34 (H) 0.00 - [facility] 0.00 ng/mL [facility] Comment: The 99th percentile for Troponin T is le ss than 0.01 ng/mL, any detectable cTnT concentration using this assay should be considered elevated. According to the third universal definit ion of myocardial infarction the following criteria with a clinical prese ntation consistent with acute myocardial ischemia meets the diagnosis for a myocardial infarction (MT). Detection of a rise and/or fall of [...] additional sample may be indicated. Reference: [employer] Definition of Myocardial Infarction. Journal of the [employer] 2012;60:1581-98 CK, Total 101 0 - 200 unit/L [facility] Specimen Anatomical Collection Method Collection Time Receive d Time (Source) Location / / Volume Laterality Blood specimen 07/06/2017 2:10 PM 017 2:26 (specimen) EST PM EST Resulting Agency Comment Spec In Lab Daphne Shahid MD CHEMISTRY ORDERABLES Performing Organization Address City/[facility]/ZIP Code Phon e Number [address] POCT Glucose (07/06/2017 2:08 PM EST) athologist Signature POC Glucose 192 65 - 199 [facility]dL [facility] Comment: Supplemental ranges: <140 mg/dL before meals <180 mg/dL all other times of the day Specimen Anatomical Collection Method Collection Time Receive d Time (Source) Location / / Volume Laterality Blood specimen 07/06/2017 2:08 PM 017 2:08 (specimen) EST PM EST Daphne Shahid MD POINT OF CARE TEST ORDERABLE S Performing Organization Address City/[facility]/ZIP Code Phon e Number [address] POCT Glucose (07/06/2017 1:04 PM EST) athologist Signature POC Glucose 162 65 - 199 [facility] mg[facility]dL [facility] Comment: Supplemental ranges: <140 mg/dL before meals <180 mg/dL all other times of the day Specimen Anatomical Collection Method Collection Time Receive d Time (Source) Location / / Volume Laterality Blood specimen 07/06/2017 1:04 PM 017 1:04 (specimen) EST PM EST Daphne Shahid MD POINT OF CARE TEST ORDERABLE S Performing Organization Address City/State/ZIP Code Phon e Number [address] POCT Glucose (07/06/2017 12:05 PM EST) athologist Signature POC Glucose 196 65 - 199 [facility] mg/dL [facility] Comment: Supplemental ranges: <140 mg/dL before meals <180 mg/dL all other times of the day Specimen Anatomical Collection Method Collection Time Receive d Time (Source) Location / / Volume Laterality Blood specimen 07/06/2017 12:05 7 (specimen) PM EST 12:05 PM EST Daphne Shahid MD POINT OF CARE TEST ORDERABLE S Performing Organization Address [facility]/[place] [address] EKG 12 Lead (07/06/2017 12:00 PM EST) Component Value Ref Range Test Analysis Performed Pathologis t Method Time At Signature Ventricular rate 91 BPM MUSE SYSTEM Atrial Rate 91 BPM MUSE SYSTEM P-R Interval 140 ms MUSE SYSTEM QRS Duration 94 ms MUSE SYSTEM Q-T Interval 394 ms MUSE SYSTEM QTC Calculated 484 ms MUSE SYSTEM (Bezet) Calculated P Piffard 36 degrees MUSE SYSTEM Calculated R [place]ard -19 degrees MUSE SYSTEM Calculated T P[place] 104 degrees MUSE SYSTEM INTERPRETATION Normal sinus rhythm MUSE SYSTEM 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) ST & T wave abnormality, consider lateral ischemia Abnormal ECG When compared with ECG of 05-JUL-2017 20:39, No significant change was found Confirmed by MD Luci, Taurus Braun ([id number]) on 07/06/2017 5:07:33 PM Specimen Anatomical Collection Method Collection Time Receive d Time (Source) Location / / Volume Laterality 07/06/2017 12:00 07/06/2017 5:07 PM EST PM EST Daphne Shahid MD ECG ORDERABLES Performing Organization Address [facility]/ZIP Code Phon e Number MUSE SYSTEM ABORH Recheck Status (07/06/2017 12:00 PM EST) [facility] Method Time Signature ABORH Type Completed [facility] LABORATORY Specimen Anatomical Collection Method Collection Time Receive d Time (Source) Location / / Volume Laterality Blood specimen 07/06/2017 12:00 7 (specimen) PM EST 12:24 PM EST Resulting Agency Comment Spec In Lab Daphne Shahid MD BLOOD BANK ORDERABLES Performing Organization Address City/[facility]/[place] [address] Antibody screen (07/06/2017 12:00 PM EST) [facility] Method Time Signature Ab Screen Negative [facility] LABORATORY Expires at 07/09/2017 [facility] [id number] on: [facility] Specimen Anatomical Collection Method Collection Time Receive d Time (Source) Location / / Volume Laterality Blood specimen 07/06/2017 12:00 7 (specimen) PM EST 12:24 PM EST Resulting Agency Comment Spec In Lab Daphne Shahid MD BLOOD BANK ORDERABLES Performing Organization Address City/[facility]/ZIP Code Phon e Number [address] ABO/Rh Typing (07/06/2017 12:00 PM EST) P athologist Signature ABORh Type O Pos [facility] Specimen Anatomical Collection Method Collection Time Receive d Time (Source) Location / / Volume Laterality Blood specimen 07/06/2017 12:00 7 (specimen) PM EST 12:24 PM EST Resulting Agency Comment Spec In Lab Daphne Shahid MD BLOOD BANK ORDERABLES Performing Organization Address City/[facility] Phon e Number [address] Prothrombin Time (07/06/2017 11:24 AM EST) P athologist Signature PT 13.3 11.8 - 14.0 [facility] LABORATORY INR 1.0 0.9 - 1.1 [facility] Comment: An INR <2.0 [...] Location / / Volume Laterality Blood specimen 07/06/2017 11:24 7 (specimen) AM EST 12:20 PM EST Resulting Agency Comment Spec In Lab Daphne Shahid MD HEMATOLOGY ORDERABLES Performing Organization Address City/[facility]/[place] [address] (ABNORMAL) APTT (07/06/2017 11:24 AM EST) athologist Signature PTT 52 (H) 25 - 35 sec [facility] Comment: The recommended therapeutic range for fu ll dose, unfractionated heparin at [facility] is 80 ? 114 seconds. The use of the anti-Xa (heparin) level rather than the PTT is recommended for monitoring anticoagul ation intensity in critically ill patients receiving unfractionated hepari n by continuous IV infusion. Specimen Anatomical Collection Method Collection Time Receive d Time (Source) Location / / Volume Laterality Blood specimen 07/06/2017 11:24 7 (specimen) AM EST 11:24 AM EST Resulting Agency Comment Spec In Lab Daphne Shahid MD HEMATOLOGY ORDERABLES Performing Organization Address [facility]/ZIP Code Phon e Number [address] POCT Glucose (07/06/2017 11:02 AM EST) athologist Signature POC Glucose 187 65 - 199 [facility] Comment: Supplemental ranges: <140 mg/dL before meals <180 mg/dL all other times of the day Specimen Anatomical Collection Method Collection Time Receive d Time (Source) Location / / Volume Laterality Blood specimen 07/06/2017 11:02 7 (specimen) AM EST 11:02 AM EST Daphne Shahid MD POINT OF CARE TEST ORDERABLE S Performing Organization Address City/State/[place] [address] POCT Glucose (07/06/2017 10:18 AM EST) athologist Signature POC Glucose 193 65 - 199 [facility]dL [facility] Comment: Supplemental ranges: <140 mg/dL before meals <180 mg/dL all other times of the day Specimen Anatomical Collection Method Collection Time Receive d Time (Source) Location / / Volume Laterality Blood specimen 07/06/2017 10:18 7 (specimen) AM EST 10:18 AM EST Daphne Shahid MD POINT OF CARE TEST ORDERABLE S Performing Organization Address City/State/[place] [address] POCT Glucose (07/06/2017 9:25 AM EST) athologist Signature POC Glucose 182 65 - 199 [facility] mg/dL [facility] Comment: Supplemental ranges: <140 mg/dL before meals <180 mg/dL all other times of the day Specimen Anatomical Collection Method Collection Time Receive d Time (Source) Location / / Volume Laterality Blood specimen 07/06/2017 9:25 AM 017 9:25 (specimen) EST AM EST Daphne Shahid MD POINT OF CARE TEST ORDERABLE S Performing Organization Address City/State/[place] [address] (ABNORMAL) Cardiac Enzymes (LEB/CGP) (07/06/2017 8:10 AM EST) athologist Signature Troponin-T 2.26 (H) 0.00 - [facility] 0.00 ng/mL [facility] Comment: The 99th percentile for Troponin T is le ss than 0.01 ng/mL, any detectable cTnT concentration using this assay should be considered elevated. According to the third universal definit ion of myocardial infarction the following criteria with a clinical prese ntation consistent with acute myocardial ischemia meets the diagnosis for a myocardial infarction (MT). Detection of a rise and/or fall of [...] additional sample may be indicated. Reference: [employer] Definition of Myocardial Infarction. Journal of the [employer] 2012;60:1581-98 CK, Total 124 0 - 200 unit/L [facility] Specimen Anatomical Collection Method Collection Time Receive d Time (Source) Location / / Volume Laterality Blood specimen 07/06/2017 8:10 AM 017 8:23 (specimen) EST AM EST Resulting Agency Comment Spec In Lab Daphne Shahid MD CHEMISTRY ORDERABLES Performing Organization Address City/[facility]/[place] [address] Magnesium (07/06/2017 8:10 AM EST) P athologist Signature Magnesium 0.84 0.69 - 1.07 [facility] mmol/L [facility] Specimen Anatomical Collection Method Collection Time Receive d Time (Source) Location / / Volume Laterality Blood specimen 07/06/2017 8:10 AM 017 8:21 (specimen) EST AM EST Resulting Agency Comment Spec In Lab Daphne Shahid MD CHEMISTRY ORDERABLES Performing Organization Address City/[facility]/[place] [address] (ABNORMAL) Basic Metabolic Panel (non-fasting) (07/06/2017 8:10 AM EST) athologist Signature Glucose Lvl 199 65 - 199 [facility] mg/dL [facility] Comment: Diabetes: >=200 mg/dL plus symp toms BUN 16 10 - 20 mg/dL [facility] Creatinine 1.04 0.80 - 1.50 mg/dL [facility] Sodium 141 135 - 145 [...] estions. Chloride 101 98 - 107 mmol/L [facility] CO2 27 22 - 31 mmol/L [facility] Anion Gap 13 5 - 15 mmol/L [facility] Calcium 8.1 (L) 8.5 - 10.5 mg/dL [facility] Estimated GFR >60 >=60 [facility] Comment: The reported eGFR should be multiplied b y 1.2 for patients. The MDRD is not an appropriate measure o f renal function for patients with body mass extremes or in patients with acute kidney failure. http://Complix/DHnkdep http://Complix/DHMCnkf Specimen Anatomical Collection Method Collection Time Receive d Time (Source) Location / / Volume Laterality Blood specimen 07/06/2017 8:10 AM 017 8:21 (specimen) EST AM EST Resulting Agency Comment Spec In Lab Daphne Shahid MD CHEMISTRY ORDERABLES Performing Organization Address City/[facility]/ZIP Code Phon e Number [address] POCT Glucose (07/06/2017 7:34 AM EST) P athologist Signature POC Glucose 198 65 - 199 [facility] Comment: Supplemental ranges: <140 mg/dL before meals <180 mg/dL all other times of the day Specimen Anatomical Collection Method Collection Time Receive d Time (Source) Location / / Volume Laterality Blood specimen 07/06/2017 7:34 AM 017 7:34 (specimen) EST AM EST Daphne Shahid MD POINT OF CARE TEST ORDERABLE S Performing Organization Address City/[facility]/ZIP Code Phon e Number [address] POCT Glucose (07/06/2017 7:03 AM EST) P athologist Signature POC Glucose 181 65 - 199 [facility] Comment: Supplemental ranges: <140 mg/dL before meals <180 mg/dL all other times of the day Specimen Anatomical Collection Method Collection Time Receive d Time (Source) Location / / Volume Laterality Blood specimen 07/06/2017 7:03 AM 12/12/2 017 7:03 (specimen) EST AM EST Daphne Shahid MD POINT OF CARE TEST ORDERABLE S Performing Organization Address City/State/ZIP Code Phon e Number [place] [id number] XR Chest PA or AP 1 view (07/06/2017 6:34 AM EST) Anatomical Region Laterality Modality Chest N/A Digital Radiography Specimen (Source) Anatomical Location Collection Method / Collectio n Time Received Time / Laterality Volume Impressions 07/06/2017 6:46 AM EST Intra-aortic component tip appears similar. Mild interstitial edema. 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 Mild pulmonary vascular con gestion and additional prominence. Mild streaky bibasilar subsegmental atelectas is and/or scarring. No confluent airspace opacity, pleural effusion, or p neumothorax definitively identified. Cardiomediastinal contours without appre ciable change. Procedure Note Jesús Menendez MD - 07/06/2017 EXAMINATION: XR CHEST PA OR AP 1 VIEW CLINICAL HISTORY: STEMI with multi-vesse l disease awaiting CABG, ballon pump in place TECHNIQUE: Frontal chest COMPARISON: July 05, 2017 FINDINGS: Similar position of intra-aortic balloon pump, with tip projecting over the aortic knob. Mild pulmonary vascular con gestion and additional prominence. Mild streaky bibasilar subsegmental atelectas is and/or scarring. No confluent airspace opacity, pleural effusion, or p neumothorax definitively identified. Cardiomediastinal contours without appre ciable change. IMPRESSION Intra-aortic component tip appears simil ar. Mild interstitial edema. Daphne Shahid MD IMG DX ORDERABLES POCT Glucose (07/06/2017 6:21 AM EST) athologist Signature POC Glucose 172 65 - 199 [facility] mg/dL [facility] Comment: Supplemental ranges: <140 mg/dL before meals <180 mg/dL all other times of the day Specimen Anatomical Collection Method Collection Time Receive d Time (Source) Location / / Volume Laterality Blood specimen 07/06/2017 6:21 AM 017 6:21 (specimen) EST AM EST Daphne Shahid MD POINT OF CARE TEST ORDERABLE S Performing Organization Address City/State/ZIP Code Phon e Number [address] POCT Glucose (07/06/2017 5:08 AM EST) athologist Signature POC Glucose 154 65 - 199 [facility] mg/dL [facility] Comment: Supplemental ranges: <140 mg/dL before meals <180 mg/dL all other times of the day Specimen Anatomical Collection Method Collection Time Receive d Time (Source) Location / / Volume Laterality Blood specimen 07/06/2017 5:08 AM 017 5:08 (specimen) EST AM EST Daphne Shahid MD POINT OF CARE TEST ORDERABLE S Performing Organization Address City/State/ZIP Code Phon e Number [address] POCT Glucose (07/06/2017 4:05 AM EST) athologist Signature POC Glucose 142 65 - 199 [facility] mg/dL [facility] Comment: Supplemental ranges: <140 mg/dL before meals <180 mg/dL all other times of the day Specimen Anatomical Collection Method Collection Time Receive d Time (Source) Location / / Volume Laterality Blood specimen 07/06/2017 4:05 AM 017 4:05 (specimen) EST AM EST Daphne Shahid MD POINT OF CARE TEST ORDERABLE S Performing Organization Address City/State/[place] [address] POCT Glucose (07/06/2017 3:00 AM EST) [facility] P[facility] Glucose 116 65 - 199 [facility] mg/dL [facility] Comment: Supplemental ranges: <140 mg/dL before meals <180 mg/dL all other times of the day Specimen Anatomical Collection Method Collection Time Receive d Time (Source) Location / / Volume Laterality Blood specimen 07/06/2017 3:00 AM 017 3:00 (specimen) EST AM EST Daphne Shahid MD POINT OF CARE TEST ORDERABLE S Performing Organization Address City/[facility]/ZIP [facility] [place] Phon e Number [address] Potassium (07/06/2017 2:20 AM EST) [facility] Potassium 3.9 3.5 - 5.0 [facility] mmol/L [facility] Comment: Please note: ??Patients with WBC >100,00 0 may have falsely elevated Potassium levels. ??For accurate Potassium quantif ication in these patients send serum separator tube (gold top) for subsequent determinations. ??Contact the Clinical Chemistry Laboratory if there are any qu estions. Specimen Anatomical Collection Method Collection Time Receive d Time (Source) Location / / Volume Laterality Blood specimen 07/06/2017 2:20 AM 017 3:53 (specimen) EST AM EST Resulting Agency Comment Spec In Lab Daphne Shahid MD CHEMISTRY ORDERABLES Performing Organization Address City/[facility]/ZIP [facility] [place] Phon e Number [address] Differential, Automated (07/06/2017 2:20 AM EST) [facility] Neutrophils % 72.9 % [facility] Neutr Abs (ANC) 5.53 1.70 - [facility] 6.10 [facility] x10(3)/[facility] LABORATORY Lymphocytes % 16.4 % [facility] Lymphocytes Abs 1.2 0.9 - 3.2 [facility] x10(3)/[facility] LABORATORY Monocytes % 9.4 % [facility] Monocyte Abs 0.7 0.3 - 0.9 [facility] x10(3)/[facility]ORATORY Eosinophils % 0.5 % [facility] Eosinophils Abs 0.0 0.0 - 0.4 [facility] x10(3)/[facility]ORATORY Basophils % 0.4 % [facility] Basophils Abs 0.0 0.0 - 0.1 [facility] x10(3)/[facility]OR[facility]ORY Immature Gran % 0.40 % [facility] Comment: Immature granulocytes(IG's)percentage an d absolute count will include metamyelocytes, myelocytes, and promyelo cytes. Blood smears from CBCs yielding IG's will be scanned manually for concor dance. If this scan disagrees with the automated IG or if promyelocytes are not ed, a manual differential will be performed. Melisa Gran Abs 0.03 0.00 - 0.04 x10(3)/[facility] Specimen Anatomical Collection Method Collection Time Receive d Time (Source) Location / / Volume Laterality Blood specimen 07/06/2017 2:20 AM 017 2:33 (specimen) EST AM EST Resulting Agency Comment Spec In Lab Daphne Shahid MD HEMATOLOGY ORDERABLES Performing Organization Address City/State/[place] [address] (ABNORMAL) Hemogram (07/06/2017 2:20 AM EST) Analysis Performed At Patho logist Time Signature WBC 7.6 4.0 - 9.5 [facility] x10(3)/[facility] LABORATORY RBC 4.52 (L) 4.58 - [facility] 5.54 [facility] x10(6)/[facility] LABORATORY Hemoglobin 13.4 (L) 13.7 - [facility] 16.5 gm/dL [facility] Hematocrit 39.7 (L) 40.5 - [facility] 48.5 % [facility] MCV 87.8 82.9 - [facility] 93.1 fL [facility] MCH 29.6 27.5 - [facility] pg [facility] MCHC 33.8 32.0 - [facility] 35.7 gm/dL [facility] Platelets 189 145 - 357 [facility] x[facility] LABORATORY RDWSD 45.6 (H) 36.0 - [facility] 45.0 [facility] LABORATORY RDWCV 14.3 (H) 11.4 - [facility] RYAN 13.8 % [facility] MPV 9.1 7.6 - 12.9 [facility] LABORATORY nRBC % Auto 0.0 % [facility] nRBC Abs Auto 0.000 0.000 - [facility] 0.000 [facility] x10(3)/[facility] LABORATORY Specimen Anatomical Collection Method Collection Time Receive d Time (Source) Location / / Volume Laterality Blood specimen 07/06/2017 2:20 AM 017 2:33 (specimen) EST AM EST Resulting Agency Comment Spec In Lab Daphne Shahid MD HEMATOLOGY ORDERABLES Performing Organization Address City/[facility]/[place] [address] (ABNORMAL) APTT (07/06/2017 2:20 AM EST) P athologist Signature PTT 52 (H) 25 - 35 sec [facility] Comment: The recommended therapeutic range for fu ll dose, unfractionated heparin at [facility] is 80 ? 114 seconds. The use of the anti-Xa (heparin) level rather than the PTT is recommended for monitoring anticoagul ation intensity in critically ill patients receiving unfractionated hepari n by continuous IV infusion. Specimen Anatomical Collection Method Collection Time Receive d Time (Source) Location / / Volume Laterality Blood specimen 07/06/2017 2:20 AM 017 2:33 (specimen) EST AM EST Resulting Agency Comment Spec In Lab Daphne Shahid MD HEMATOLOGY ORDERABLES Performing Organization Address City/[facility]/ZIP Code Phon e Number [address] POCT Glucose (07/06/2017 2:20 AM EST) P athologist Signature POC Glucose 115 65 - 199 [facility] mg/dL [facility] Comment: Supplemental ranges: <140 mg/dL before meals <180 mg/dL all other times of the day Specimen Anatomical Collection Method Collection Time Receive d Time (Source) Location / / Volume Laterality Blood specimen 07/06/2017 2:20 AM 017 2:20 (specimen) EST AM EST Daphne Shahid MD POINT OF CARE TEST ORDERABLE S Performing Organization Address City/State/[place] [address] (ABNORMAL) Cardiac Enzymes (LEB/CGP) (07/06/2017 2:20 AM EST) athologist Signature Troponin-T 2.13 (H) 0.00 - [facility] 0.00 ng/mL [facility] Comment: The 99th percentile for Troponin T is le ss than 0.01 ng/mL, any detectable cTnT concentration using this assay should be considered elevated. According to the third universal definit ion of myocardial infarction the following criteria with a clinical prese ntation consistent with acute myocardial ischemia meets the diagnosis for a myocardial infarction (MT). Detection of a rise and/or fall of [...] additional sample may be indicated. Reference: [employer] Definition of Myocardial Infarction. Journal of the [employer] 2012;60:1581-98 CK, Total 129 0 - 200 unit/L [facility] Specimen Anatomical Collection Method Collection Time Receive d Time (Source) Location / / Volume Laterality Blood specimen 07/06/2017 2:20 AM 017 2:33 (specimen) EST AM EST Resulting Agency Comment Spec In Lab Daphne Shahid MD CHEMISTRY ORDERABLES Performing Organization Address City/State/ZIP Code Phon e Number [place] [id number] (ABNORMAL) Hemoglobin A1c (07/06/2017 2:20 AM EST) Analysis Performed At Patho logist Time Signature Hemoglobin A1C 6.8 (H) 4.3 - 5.6 [facility] Comment: Reference Range: [...] Mellitus, Diabetes Care 2013; 36: Suppl. 1, S67-02 Est Avg Gluc See note mg/dL [facility] Comment: Estimated Average [...] into estimated average glucose values. ??Diabetes Care 2008:31(8):7095-4756. Specimen Anatomical Collection Method Collection Time Receive d Time (Source) Location / / Volume Laterality Blood specimen 07/06/2017 2:20 AM 017 2:34 (specimen) EST AM EST Resulting Agency Comment Spec In Lab Daphne Shahid MD CHEMISTRY ORDERABLES Performing Organization Address City/State/[place] [address] (ABNORMAL) Lipid Panel (07/06/2017 2:20 AM EST) [facility] gist Method Time Signature Chol, Total 150 <=239 [facility] mg/dL [facility] Triglycerides 129 <=199 [facility] mg/dL [facility] HDL 32 (L) >=40 [facility] mg/dL [facility] LDL Cholesterol 92 <=190 [facility] mg/dL [facility] Chol/HDL Ratio 4.7 ratio [facility] Lipid See Note KATALINA Interpretation [facility] Comment: Lipid management should be guided by a p atient? s ASCVD risk, goals and preferences. ACC/AHA Guidelines recommend high intens ity statin if clinical ASCVD or LDL greater than or equal to 190 mg/dL. http://[employer]/DTX-MAW-Nmmmevflg Adults aged 40-75 with LDL 70-189 mg/dL should have their 10 year ASCVD risk estimated with the ACC/AHA ASCVD risk es timator http://tools.acc.org/KLYHV-Aany-Nlgsgwxf r/ Statin should be discussed if risk [...] Location / / Volume Laterality Blood specimen 07/06/2017 2:20 AM 017 2:34 (specimen) EST AM EST Resulting Agency Comment Spec In Lab Daphne Shahid MD CHEMISTRY ORDERABLES Performing Organization Address City/[facility]/ZIP Code Phon e Number [address] POCT Glucose (07/06/2017 1:09 AM EST) P athologist Signature POC Glucose 121 65 - 199 KATALINA RYAN mg/dL [facility] Comment: Supplemental ranges: <140 mg/dL before meals <180 mg/dL all other times of the day Specimen Anatomical Collection Method Collection Time Receive d Time (Source) Location / / Volume Laterality Blood specimen 07/06/2017 1:09 AM 017 1:09 (specimen) EST AM EST Daphne Shahid MD POINT OF CARE TEST ORDERABLE S Performing Organization Address City/[facility]/[place] [address] POCT Glucose (07/06/2017 12:06 AM EST) athologist Signature POC Glucose 147 65 - 199 [facility] RYAN mg/dL [facility] Comment: Supplemental ranges: <140 mg/dL before meals <180 mg/dL all other times of the day Specimen Anatomical Collection Method Collection Time Receive d Time (Source) Location / / Volume Laterality Blood specimen 07/06/2017 12:06 7 (specimen) AM EST 12:06 AM EST Daphne Shahid MD POINT OF CARE TEST ORDERABLE S Performing Organization Address City/[facility]/[place] [address] (ABNORMAL) POCT Glucose (07/05/2017 10:56 PM EST) P athologist Signature POC Glucose 200 (H) 65 - 199 [facility] RYAN mg/dL [facility] Comment: Supplemental ranges: <140 mg/dL before meals <180 mg/dL all other times of the day Specimen Anatomical Collection Method Collection Time Receive d Time (Source) Location / / Volume Laterality Blood specimen 07/05/2017 10:56 7 (specimen) PM EST 10:56 PM EST Daphne Shahid MD POINT OF CARE TEST ORDERABLE S Performing Organization Address City/[facility]/[place] [address] (ABNORMAL) POCT Glucose (07/05/2017 10:05 PM EST) P athologist Signature POC Glucose 225 (H) 65 - 199 [facility] Comment: Supplemental ranges: <140 mg/dL before meals <180 mg/dL all other times of the day Specimen Anatomical Collection Method Collection Time Receive d Time (Source) Location / / Volume Laterality Blood specimen 07/05/2017 10:05 7 (specimen) PM EST 10:05 PM EST Daphne Shahid MD POINT OF CARE TEST ORDERABLE S Performing Organization Address City/[facility]/[place] [address] (ABNORMAL) POCT Glucose (07/05/2017 9:02 PM EST) P athologist Signature POC Glucose 301 (H) 65 - 199 [facility] mg/dL [facility] Comment: Supplemental ranges: <140 mg/dL before meals <180 mg/dL all other times of the day Specimen Anatomical Collection Method Collection Time Receive d Time (Source) Location / / Volume Laterality Blood specimen 07/05/2017 9:02 PM 017 9:02 (specimen) EST PM EST Daphne Shahid MD POINT OF CARE TEST ORDERABLE S Performing Organization Address City/State/[place] [address] XR Chest PA or AP 1 view (07/05/2017 8:55 PM EST) Anatomical Region Laterality Modality Chest N/A Digital Radiography Specimen (Source) Anatomical Location Collection Method / Collectio n Time Received Time / Laterality Volume Impressions 07/05/2017 9:05 PM EST Intra-aortic balloon pump catheter in satisfactory position. No acute cardiopulmonary process. Narrative 07/05/2017 9:05 PM EST EXAMINATION: XR CHEST PA OR AP 1 VIEW CLINICAL HISTORY: eval IABP placement TECHNIQUE: Portable AP semiupright chest COMPARISON: 01/25/2013 FINDINGS: There is a new intra-aortic balloon pump catheter with the tip superimposed over the inferior end of the aortic knob. The re are slightly low lung volumes but otherwise the lungs are clear. The cardi omediastinal silhouette is stable allowing for the AP positioning. No pleu ral effusion or pneumothorax is seen. Procedure Note Daniele Mary MD - 07/05/2017Formatt ing of this note might be different from the original. EXAMINATION: XR CHEST PA OR AP 1 VIEW CLINICAL HISTORY: eval IABP placement TECHNIQUE: Portable AP semiupright chest COMPARISON: 01/25/2013 FINDINGS: There is a new intra-aortic balloon pump catheter with the tip superimposed over the inferior end of the aortic knob. The re are slightly low lung volumes but otherwise the lungs are clear. The cardi omediastinal silhouette is stable allowing for the AP positioning. No pleu ral effusion or pneumothorax is seen. IMPRESSION Intra-aortic balloon pump catheter in sa tisfactory position. No acute cardiopulmonary process. Daphne Shahid MD IMG DX ORDERABLES EKG 12 Lead (07/05/2017 8:39 PM EST) Component Value Ref Range Test Analysis Performed Pathologis t Method Time At Signature Ventricular rate 101 BPM MUSE SYSTEM Atrial Rate 101 BPM MUSE SYSTEM P-R Interval 150 ms MUSE SYSTEM QRS Duration 86 ms MUSE SYSTEM Q-T Interval 366 ms MUSE SYSTEM QTC Calculated 474 ms MUSE SYSTEM (Bezet) Calculated P Piffard 50 degrees MUSE SYSTEM Calculated R Piffard -28 degrees MUSE SYSTEM Calculated T Piffard 90 degrees MUSE SYSTEM INTERPRETATION Sinus tachycardia MUSE SY STEM Cannot rule out Anteroseptal infarct (cited on or before Jun-2017) T wave abnormality, consider lateral ischemia Abnormal ECG When compared with ECG of 05-JUL-2017 16:32, No significant change was found Confirmed by MD LAINA, CALVIN ([id number]) on 07/06/2017 8:44:58 AM Specimen Anatomical Collection Method Collection Time Receive d Time (Source) Location / / Volume Laterality 07/05/2017 8:39 PM 7 8:44 EST AM EST Daphne Shahid MD ECG ORDERABLES Performing Organization Address City/State/ZIP Code Phon e Number MUSE SYSTEM (ABNORMAL) Differential, Automated (07/05/2017 8:20 PM EST) [facility] Method Time Signature Neutrophils % 88.4 % [facility] Neutr Abs (ANC) 9.08 (H) 1.70 - [facility] 6.10 [facility] x10(3)/[facility] L LABORATORY Lymphocytes % 7.0 % [facility] Lymphocytes Abs 0.7 (L) 0.9 - 3.2 [facility] x10(3)/[facility] LABORATORY Monocytes % 3.7 % [facility] Monocyte Abs 0.4 0.3 - 0.9 [facility] x10(3)/[facility] LABORATORY Eosinophils % 0.1 % [facility] Eosinophils Abs 0.0 0.0 - 0.4 [facility] x10(3)/[facility] LABORATORY Basophils % 0.2 % [facility] Basophils Abs 0.0 0.0 - 0.1 [facility] x10(3)/[facility] LABORATORY Immature Gran % 0.60 % [facility] Comment: Immature granulocytes(IG's)percentage an d absolute count will include metamyelocytes, myelocytes, and promyelo cytes. Blood smears from CBCs yielding IG's will be scanned manually for concor dance. If this scan disagrees with the automated IG or if promyelocytes are not ed, a manual differential will be performed. Melisa Gran Abs 0.06 (H) 0.00 - 0.04 x10(3)/[facility] LABORATORY Specimen Anatomical Collection Method Collection Time Receive d Time (Source) Location / / Volume Laterality Blood specimen 07/05/2017 8:20 PM 017 8:27 (specimen) EST PM EST Resulting Agency Comment Spec In Lab Daphne Shahid MD HEMATOLOGY ORDERABLES Performing Organization Address City/State/[place] [address] (ABNORMAL) Hemogram (07/05/2017 8:20 PM EST) Analysis Performed At Patho logist Time Signature WBC 10.3 (H) 4.0 - 9.5 [facility] x10(3)/[facility] LABORATORY RBC 4.64 4.58 - K[place]ALINA RYAN 5.54 [facility] x10(6)/[facility] LABORATORY Hemoglobin 14.1 13.7 - [facility] 16.[facility] gm/dL [facility] Hematocrit 40.8 40.5 - [facility] 48.5 % [facility] MCV 87.9 82.9 - [facility] 93.1 [facility] LABORATORY MCH 30.4 27.5 - [facility] 32.1 pg [facility] MCHC 34.6 32.0 - [facility] 35.[facility] gm/dL [facility] Platelets 204 145 - 357 [facility] x10(3)/[facility] LABORATORY RDWSD 46.1 (H) 36.0 - [facility] 45.0 [facility] LABORATORY RDWCV 14.5 (H) 11.4 - [facility] 13.8 % [facility] MPV 9.7 7.6 - 12.9 [facility] LABORATORY nRBC % Auto 0.0 % [facility] nRBC Abs Auto 0.000 0.000 - [facility] 0.000 [facility] x10(3)/[facility] LABORATORY Specimen Anatomical Collection Method Collection Time Receive d Time (Source) Location / / Volume Laterality Blood specimen 07/05/2017 8:20 PM 017 8:27 (specimen) EST PM EST Resulting Agency Comment Spec In Lab Daphne Shahid MD HEMATOLOGY ORDERABLES Performing Organization Address City/State/[place] [address] APTT (07/05/2017 8:20 PM EST) P athologist Signature PTT 32 25 - 35 sec [facility] Comment: The recommended therapeutic range for fu ll dose, unfractionated heparin at [facility] is 80 ? 114 seconds. The use of the anti-Xa (heparin) level rather than the PTT is recommended for monitoring anticoagul ation intensity in critically ill patients receiving unfractionated hepari n by continuous IV infusion. Specimen Anatomical Collection Method Collection Time Receive d Time (Source) Location / / Volume Laterality Blood specimen 07/05/2017 8:20 PM 017 8:27 (specimen) EST PM EST Resulting Agency Comment Spec In Lab Daphne Shahid MD HEMATOLOGY ORDERABLES Performing Organization Address City/State/[place] [address] (ABNORMAL) Cardiac Enzymes (LEB/CGP) (07/05/2017 8:20 PM EST) P athologist Signature Troponin-T 2.11 (H) 0.00 - [facility] 0.00 ng/mL [facility] Comment: The 99th percentile for Troponin T is le ss than 0.01 ng/mL, any detectable cTnT concentration using this assay should be considered elevated. According to the third universal definit ion of myocardial infarction the following criteria with a clinical prese ntation consistent with acute myocardial ischemia meets the diagnosis for a myocardial infarction (MT). Detection of a rise and/or fall of [...] additional sample may be indicated. Reference: [employer] Definition of Myocardial Infarction. Journal of the [place] [employer] 2012;60:1581-98 CK, Total 149 0 - 200 unit/L [facility] Specimen Anatomical Collection Method Collection Time Receive d Time (Source) Location / / Volume Laterality Blood specimen 07/05/2017 8:20 PM 017 8:27 (specimen) EST PM EST Resulting Agency Comment Spec In Lab Daphne Shahid MD CHEMISTRY ORDERABLES Performing Organization Address City/[facility]/ZIP Code Phon e Number [address] (ABNORMAL) Magnesium (07/05/2017 8:20 PM EST) P athologist Signature Magnesium 0.68 (L) 0.69 - 1.07 [facility] mmol/L [facility] Specimen Anatomical Collection Method Collection Time Receive d Time (Source) Location / / Volume Laterality Blood specimen 07/05/2017 8:20 PM 017 8:27 (specimen) EST PM EST Resulting Agency Comment Spec In Lab Daphne Shahid MD CHEMISTRY ORDERABLES Performing Organization Address City/[facility] [place] [address] (ABNORMAL) Basic Metabolic Panel (non-fasting) (07/05/2017 8:20 PM EST) athologist Signature Glucose Lvl 321 (H) 65 - 199 [facility] mg/dL [facility] Comment: Diabetes: >=200 mg/dL plus symp toms BUN 20 10 - 20 mg/dL [facility] Creatinine 1.12 0.80 - 1.50 mg/dL [facility] Sodium 139 135 - 145 mmol/L [facility] Potassium 3.8 3.5 - 5.0 mmol/L [facility] Comment: Please note: ??Patients with WBC >100,00 0 may have falsely elevated Potassium levels. ??For accurate Potassium quantif ication in these patients send serum separator tube (gold top) for subsequent determinations. ??Contact the Clinical Chemistry Laboratory if there are any qu estions. Chloride 98 98 - 107 mmol/L [facility] CO2 27 22 - 31 mmol/L [facility] Anion Gap 14 5 - 15 mmol/L [facility] Calcium 8.1 (L) 8.5 - 10.5 mg/dL [facility] Estimated GFR >60 >=60 [facility] Comment: The reported eGFR should be multiplied b y 1.2 for patients. The MDRD is not an appropriate measure o f renal function for patients with body mass extremes or in patients with acute kidney failure. http://Complix/DHnkdep http://[employer]/DHMCnkf Specimen Anatomical Collection Method Collection Time Receive d Time (Source) Location / / Volume Laterality Blood specimen 07/05/2017 8:20 PM 017 8:27 (specimen) EST PM EST Resulting Agency Comment Spec In Lab Daphne Shahid MD CHEMISTRY ORDERABLES Performing Organization Address City/State/ZIP Code Phon e Number [address] (ABNORMAL) POCT Glucose (07/05/2017 7:32 PM EST) P athologist Signature POC Glucose 296 (H) 65 - 199 [facility] mg/dL [facility] Comment: Supplemental ranges: <140 mg/dL before meals <180 mg/dL all other times of the day Specimen Anatomical Collection Method Collection Time Receive d Time (Source) Location / / Volume Laterality Blood specimen 07/05/2017 7:32 PM 017 7:32 (specimen) EST PM EST Daphne Shahid MD POINT OF CARE TEST ORDERABLE S Performing Organization Address City/State/[place] [address] CARDIAC CATHETERIZATION (07/05/2017 6:47 PM EST) Specimen (Source) Anatomical Location Collection Method / Collectio n Time Received Time / Laterality Volume Narrative CARDIOMAC SYSTEM - 07/05/2017 7:27 PM ES T ?[facility] ? Cardiac Cathete rization/Intervention Report ? Patient Name: Natalya, Gregory ? Procedure Date: 07/05/2017 ? A #: [id number] ? Primary Physician: Clarisa, Jet T ? Case #: [id number] ? File Name: [id number] ? Catheterization Order Number: [id number] ? [facility] [employer] ? Final Report [place], [place] ? Patient Name: ? Gregory Natalya ?ID#: ?[id number] ? : ?1945 ? Procedure Date: ? July 05 ?Case #: ? [id number] ? Room: ? 6 ? Case Physician: ? Jet Mckenna M.D. ?Start: ?18:06 ? Admission: ??07/05/2017 ? Discharge: ??07/14/2017 ? Procedures: ?* Coronary Angiography ?* Left Heart Catheterization ?* Intra-Aortic Balloon Pump (IA BP) Insertion ?* Access Site Angiography ? History ?Gregory Hoang is a 72 year old man. He has hypertension. The patient has ?a history of smoking (25 pack y ears). He has hypercholesterolemia managed ?with lipid therapy. The patient has diabetes managed by oral medication ?and insulin. He is status post a recent non-ST elevation myocardial ?infarction. The patient has a h istory of dyspnea with NYHA functional ?class IV, an ejection fraction less than or equal to 35%, congestive ?heart failure during this admis latonya and ischemic cardiomyopathy. He has a ?history of peripheral vascular disease. The patient has a history of ?chronic obstructive pulmonary d isease. He also has a history of an ?abnormal EKG and an abnormal ec hocardiogram. Prior to the initiation of ?this procedure, the patient was designated as ASA Class III. ? Patient Status at Catheterization: ?The patient presented with: non -STEMI (w/i 7 days). [place] ?[employer] Society angina c lass was IV. No stress or imaging studies ?were performed prior to this pr ocedure. The status of the diagnostic ?procedure was Urgent. ? Technique: ?A 6Fr sheath was inserted in th e right femoral artery utilizing the ?Seldinger technique. The left c oronary artery was injected utilizing a ?6Fr JL 4 catheter. A 6Fr JR 4 c atheter was used to inject the right ?coronary artery. Left ventricle was performed with a 6Fr Angled pigtail ?catheter. A total of 100cc of O mnipaque were opened, 50cc of Omnipaque ?were administered and 50cc of O mnipaque were wasted. Radiation: Fluoro ?time was 2.2 minutes, dose area product was 48,588 mGYcm2 and air kerma ?was 598 mGY. ?The patient received the follow ing medications prior to and during the ?procedure: Aspirin (any), Clopi dogrel and Unfractionated Heparin (any). ? Hemodynamics: ?Left Heart Pressures ? Resting: ? Syst D iast ? EDP ?a ?v ? m ?Ao 190 ?? 106 ? 141 ? Post Contrast: ? Syst D iast ? EDP ?a ?v ? m ?Ao 189 ?? 101 ?LV 185 ? 38 ? Coronary Angiography: ?Dominance: Right ?Left Main ? There was mild diffuse ( <=25% stenosis) disease of the entire vessel ? segment of the left main artery. ??The distal segment of the left ? main had a single discre te 40% stenosis. ?Left Anterior Descending ? There was mild diffuse ( <=25% stenosis) disease of the entire vessel ? segment of the left ante rior descending artery (LAD). ??The mid ? segment of the LAD had a single discrete 90% stenosis. ??This lesion ? involved bifurcation. ? There was a 65% long seg mental stenosis of the proximal segment of ? the first diagonal branc h (Diagonal 1) of the LAD. ??The Diagonal 1 ? was large. ?Left Circumflex ? There was mild diffuse ( <=25% stenosis) disease of the entire vessel ? segment of the left circ umflex artery (LCX). ??The mid segment of the ? LCX had a single discret e 50% stenosis. ?Right Coronary Artery ? There was mild diffuse ( <=25% stenosis) disease of the entire vessel ? segment of the right cor onary artery (RCA). ? There were multiple disc rete 60% stenoses of the mid segment of the ? right posterior descendi ng branch (RPDA) of the RCA. ?Ramus ? There was a 95% single d iscrete stenosis of the ostial segment of ? the ramus. ? Indication for Selected Procedures: ?Left ventricular Ejection Fract ion was estimated at 25 percent. An ?intraaortic balloon pump was in serted for Prophylaxis, pre-heart surgery. ? Vascular Access: ? Conclusions: ?* Three vessel coronary artery disease (LAD, LCX and RCA) ?* Elevated LVEDP. ? Complications/Events: ?The patient had no complication s during these procedures. ? Recommendations: ?Based upon the results of this procedure, it was recommended that ?coronary artery bypass surgery be considered. ? Comments: ?Patient presents with progressi ve heart failure,resting hypoxia, markedly ?elevated troponin, and EF of 25 %. ??Cath showed severe 3VD with LVEDP >35. ? IABP placed for prophylaxis pr e-surgery. ??IV nitrates and nipride ?started for hypertension. ??IV lasix given for CHF symptoms. ?IABP Placement: ?8 Fr Arrow IABP placed via RFA to proper position in the descending ?thoracic aorta under fluoroscop y guidance. There was good diastolic ?augmentation and systolic unloa ding. ?Successful IABP placement. ?The attending physician was presen t for the entire procedure. ?Dr. Jet Mckenna M.D. was pres ent during the moderate sedation ?intraservice time as documented by the sedation nurse. ??Case time = 00:42. ?Dr. Jet Mckenna M.D. performe d the coronary angiography, left heart ?catheterization, access site angio graphy and IABP insertion in laborer prestressed concrete. ? Jet Mckenna M.D. ? Electronically Signed by: Jet bunch M.D. ? Report Finalized: 07/05/2017 ??19:23 ? Report Last Ammended: 10/26/2017 ??10:29 ? Procedure Note Jet Mckenna MD - 10/26/2017Formatt ing of this note might be different from the original. [facility] Cardiac Catheterization/Intervention Re port Patient Name: Gregory Hoang Procedure Date: 07/05/2017 A #: [id number] Primary Physician: Jet Mckenna Case #: [id number] File Name: [id number] Catheterization Order Number: [id number] [facility] Final Report [place], [place] Patient Name: Gregory Hoang ID#: [id number] : 1945 Procedure Date: July 05, 2017 Case # : [id number] Room: 6 Case Physician: Jet Mckenna M.D. art: 18:06 Admission: 07/05/2017 Discharge: 07/14/2017 Procedures: * Coronary Angiography * Left Heart Catheterization * Intra-Aortic Balloon Pump (IABP) Inse rtion * Access Site Angiography History Gregory Hoang is a 72 year old man. He has hypertension. The patient has a history of smoking (25 pack years). H e has hypercholesterolemia managed with lipid therapy. The patient has marylou betes managed by oral medication and insulin. He is status post a recent non-ST elevation myocardial infarction. The patient has a history o f dyspnea with NYHA functional class IV, an ejection fraction less eva n or equal to 35%, congestive heart failure during this admission and ischemic cardiomyopathy. He has a history of peripheral vascular disease. The patient has a history of chronic obstructive pulmonary disease. He also has a history of an abnormal EKG and an abnormal echocardio gram. Prior to the initiation of this procedure, the patient was designa vlad as ASA Class III. Patient Status at Catheterization: The patient presented with: non-STEMI ( w/i 7 days). [place] [employer] angina class was IV. No stress or imaging studies were performed prior to this procedure. The status of the diagnostic procedure was Urgent. Technique: A 6Fr sheath was inserted in the right femoral artery utilizing the Seldinger technique. The left coronary artery was injected utilizing a 6Fr JL 4 catheter. A 6Fr JR 4 catheter was used to inject the right coronary artery. Left ventricle was per formed with a 6Fr Angled pigtail catheter. A total of 100cc of Omnipaque were opened, 50cc of Omnipaque were administered and 50cc of Omnipaque were wasted. Radiation: Fluoro time was 2.2 minutes, dose area product was 48,588 mGYcm2 and air kerma was 598 mGY. The patient received the following medi cations prior to and during the procedure: Aspirin (any), Clopidogrel a nd Unfractionated Heparin (any). Hemodynamics: Left Heart Pressures Resting: Syst Diast EDP a v m Ao 190 106 141 Post Contrast: Syst Diast EDP a v m Ao 189 101 LV 185 38 Coronary Angiography: Dominance: Right Left Main There was mild diffuse (<=25% stenosis) disease of the entire vessel segment of the left main artery. The di stal segment of the left main had a single discrete 40% stenosis . Left Anterior Descending There was mild diffuse (<=25% stenosis) disease of the entire vessel segment of the left anterior descending artery (LAD). The mid segment of the LAD had a single discret e 90% stenosis. This lesion involved bifurcation. There was a 65% long segmental stenosis of the proximal segment of the first diagonal branch (Diagonal 1) of the LAD. The Diagonal 1 was large. Left Circumflex There was mild diffuse (<=25% stenosis) disease of the entire vessel segment of the left circumflex artery ( LCX). The mid segment of the LCX had a single discrete 50% stenosis. Right Coronary Artery There was mild diffuse (<=25% stenosis) disease of the entire vessel segment of the right coronary artery (R CA). There were multiple discrete 60% stenos es of the mid segment of the right posterior descending branch (RPDA ) of the RCA. Ramus There was a 95% single discrete stenosi s of the ostial segment of the ramus. Indication for Selected Procedures: Left ventricular Ejection Fraction was estimated at 25 percent. An intraaortic balloon pump was inserted f or Prophylaxis, pre-heart surgery. Vascular Access: Conclusions: * Three vessel coronary artery disease (LAD, LCX and RCA) * Elevated LVEDP. Complications/Events: The patient had no complications during these procedures. Recommendations: Based upon the results of this procedur e, it was recommended that coronary artery bypass surgery be consi dered. Comments: Patient presents with progressive heart failure,resting hypoxia, markedly elevated troponin, and EF of 25%. Cath showed severe 3VD with LVEDP >35. IABP placed for prophylaxis pre-surgery . IV nitrates and nipride started for hypertension. IV lasix give n for CHF symptoms. IABP Placement: 8 Fr Arrow IABP placed via RFA to prope r position in the descending thoracic aorta under fluoroscopy jason de leon. There was good diastolic augmentation and systolic unloading. Successful IABP placement. The attending physician was present for the entire procedure. Dr. Jet Mckenna M.D. was present d uring the moderate sedation intraservice time as documented by the sedation nurse. Case time = 00:42. Dr. Jet Mckenna M.D. performed the coronary angiography, left heart catheterization, access site angiograph y and IABP insertion in laborer prestressed concrete. Jet Mckenna M.D. Electronically Signed by: Jet bunch M.D. Report Finalized: 07/05/2017 19:23 Report Last Ammended: 10/26/2017 10:29 Daphne Shahid MD CARDIAC CATH ORDERABLES Performing Organization Address City/State/ZIP Code Phon e Number CARDIOMAC SYSTEM ECHOCARDIOGRAM COMPLETE W CONTRAST (07/05/2017 6:21 PM EST) P athologist Signature EF 29 HEARTLAB SYSTEM Specimen (Source) Anatomical Location Collection Method / Collectio n Time Received Time / Laterality Volume 07/06/2017 Narrative HEARTLAB SYSTEM - 07/06/2017 8:53 AM EST Procedure: ?Transthoracic Echocardiogram Patient: ?NATALYA Mccollum ? (Age): 1945(72y) Med Rec#: ? [id number] ?Sex: ?M ? Site Loc: ? [facility] ?Ht / Wt: ??173(cm)/86(kg) Pt. Loc: ?CCU ? BSA: ?2 Study Date: ?? 07/05/2017 ?Pt. Type: Inpatient Tape: ? Referring: Daphne Shahid ([id number]) Referring: MANDA ALCANTAR Reading: Blade Preston ([id number]) Casserole Preparer: Dayami Paula BA, RDCS Diagnosis: *ICD-10-PCS Non-ST elevation (NSTEMI) m yocardial infarction (I21.4) BP: ? 163/96 SUMMARY: 1. The left ventricle is mildly dilated. Left ventricular wall thickness is normal. There are left ventricular se gmental wall motion abnormalities present, as shown in the d iagram below. Global left ventricular systolic function is severel y reduced. The quantitative left ventricular ejection fraction by biplane Oneill's method is 29%. Doppler assessment is consistent with el evated left sided filling pressure. 2. Right ventricular chamber size, wall thickness, and systolic function are within normal limits. 3. The left atrium is moderately dilated . The right atrium appears normal. 4. There is no hemodynamically significa nt valve disease. 5. See remainder of report for additiona l findings. Findings ? : Study Quality: ? Technically limited Left Ventricle: ? The left ventricle is mildly dilated. ?Left ventricular wall thickness is normal. ?Global left ventricular systolic f unction is severely reduced. ?The quantitative left ventricular ejection fraction by biplane Oneill's method is 29%. ?There are left ventricular segment al wall motion abnormalities present, as shown in the diagram below. ?Doppler assessment is consistent w ith elevated left sided filling pressure. ?The ??basal anteroseptal, basal an terior, basal anterolateral, basal inferolateral, basal inferior, basal inf eroseptal, mid anteroseptal, mid anterolateral, mid inferolateral, mid in feroseptal, apical anterior, and apical lateral wall segments are hypoki netic (score 2). ?The ??mid anterior, mid inferior, apical septal, and ??apical inferior wall segments are akinetic (score 3). ?Overall wallmotion score index is ??2.25 Left Atrium: ? The left atrium is mo derately dilated. (46 ml/m2 by volume index) Right Ventricle: ? Right ventricular chamber size, wall thickness, and systolic function are within normal limi ts. ?Pulmonary artery hypertension coul d not be assessed due to inadequate tricuspid regurgitation jet. Right Atrium: ? The right atrium gera ears normal. Aortic Valve: ? The aortic valve is tricuspid. ?The aortic valve leaflets are mild ly thickened. ?There is aortic annular calcificat ion. ?There is no evidence of aortic collette ve stenosis. ?There is no evidence of aortic reg urgitation. Mitral Valve: ? The mitral valve gera ears normal in structure and function. ?There is trace mitral regurgitatio n present. Tricuspid Valve: ? The tricuspid collette ve appears normal in structure and function. ?There is trace tricuspid regurgita tion present. Pulmonic Valve: ? The pulmonic valve appears normal in structure and function. Pericardium: ? The pericardium appea rs normal and there is no evidence of a pericardial effusion. Aorta: ? The aortic root is normal i n size. ?The ascending aorta is normal in s ize. Pulmonary Artery: ? The main pulmona ry artery appears normal. Venous: ? The inferior vena cava gera ears normal in size. ?There is a greater than 50% respir atory change in the inferior vena cava dimension. Misc: ? Two-dimensional echo, spectr al Doppler and color Doppler performed. ?Optison contrast (one 3 ml vial) w as used to enhance endocardial definition. Excess contrast was discarde d. Chambers 2D ?Value ?Units (Range) ? IVSd (2D) ? 0.9 ?cm ? LVPWd (2D) ?0.9 ?cm ? IVS:LVPW ratio (2D) 1 ?ratio ? RWT (2D) ?0.3 ?ratio ? RWT PW (2D) ? 0.3 ?ratio ? LVIDd (2D) ?5.6 ?cm ? LVIDs (2D) ?4.9 ?cm ? LVIDd (2D) index ?2.8 ?cm/m2 ? LVIDs (2D) index ?2.5 ?cm/m2 ? LV FS (2D) ?12 ? % ? EF Teichholz (2D) ?? 25 ? % ? Ao root diameter (2D3.2 ?cm (2.1 - 3.6) ? Ascending Ao ?3.4 ?cm (2 - 3.5) ? Volumes/Mass ?Value ?Units (Range) ? LA Area 4 CH ?27.2 ? cm2 (<21) ? RA AREA 4CH ? 16.4 ? cm2 ? LA ESV BP (MOD) inde45.6 ? ml/m2 ? LV ESV SP 4CH (MOD) 119 ?ml ? LV ESV SP 2CH (MOD) 116 ?ml ? LV EDV BP ? 176 ?ml ? LV ESV BP ? 125 ?ml ? LV EDV BP index ? 88 ? ml/m2 ? LV ESV BP index ? 62.5 ? ml/m2 ? BP EF (MOD) ? 29 ? % ? LV mass (2D) ?189.1 ?g ? LV mass (2D) index ??94.6 ? g/m2 ? Diastolic/Systolic Function ?Value ?Units (Range) ? MV E-wave Vmax ?0.8 ?m/sec ? MV deceleration vede725 ?msec ? MV A-wave Vmax ?0.8 ?m/sec ? MV E:A ratio ?1.1 ?ratio ? LV septal e' Vmax ?? 0 ?m/sec ? LV lateral e' Vmax ??0 ?m/sec ? LV average e' Vmax ??0 ?m/sec ? LV E:e' septal ratio21.2 ? ratio ? LV E:e' lateral rati21.2 ? ratio ? LV average E:e' rati21.2 ? ratio ? Tricuspid Valve ?Value ?Units (Range) ? TAPSE ? 1.9 ?cm ? Wall Motion: Segment Name ?Rest ? Base-Anteroseptal ?? Hypokinetic ? Base-Anterior ? Hypokinetic ? Base-Anterolateral ??Hypokinetic ? Base-Posterolateral Hypokinetic ? Base-Inferior ? Hypokinetic ? Base-Inferoseptal ?? Hypokinetic ? Mid-Anteroseptal ?Hypokinetic ? Mid-Anterior ?Akinetic ? Mid-Anterolateral ?? Hypokinetic ? Mid-Posterolateral ??Hypokinetic ? Mid-Inferior ?Akinetic ? Mid-Inferoseptal ?Hypokinetic ? [place]-Septal ? Akinetic ? [place]-Anterior ? Hypokinetic ? [place]-Lateral ?Hypokinetic ? [place]-Inferior ? Akinetic ? [place]-Tip ?Akinetic ? This report has been electronically sign ed by: _ Blade Preston MD ? 07/06/2017 08 :53:15 Images reviewed and interpretation verif ied [facility] Procedure Note Blade Preston MD - 07/06/2017Formatt ing of this note might be different from the original. Procedure: Transthoracic Echocardiogram Patient: NATALYA MCBRIDE(Age): [birth year]72y) Med Rec#: [id number] Sex: M Site Loc: [facility] Ht / Wt: 173(cm)/86(kg) Pt. Loc: CCU BSA: 2 Study Date: 07/05/2017 Pt. Type: Inpatie nt Tape: Referring: Daphne Shahid ([id number]) Referring: MANDA ALCANTAR Reading: Blade Preston ([id number]) Casserole Preparer: Dayami Paula BA, [facility] Diagnosis: *ICD-10-PCS Non-ST elevation (NSTEMI) m yocardial infarction (I21.4) BP: 163/96 SUMMARY: 1. The left ventricle is mildly dilated. Left ventricular wall thickness is normal. There are left ventricular se gmental wall motion abnormalities present, as shown in the d iagram below. Global left ventricular systolic function is severel y reduced. The quantitative left ventricular ejection fraction by biplane Oneill's method is 29%. Doppler assessment is consistent with el evated left sided filling pressure. 2. Right ventricular chamber size, wall thickness, and systolic function are within normal limits. 3. The left atrium is moderately dilated . The right atrium appears normal. 4. There is no hemodynamically significa nt valve disease. 5. See remainder of report for additiona l findings. Findings : Study Quality: Technically limited Left Ventricle: The left ventricle is mi ldly dilated. Left ventricular wall thickness is norm al. Global left ventricular systolic functi on is severely reduced. The quantitative left ventricular eject ion fraction by biplane Oneill's method is 29%. There are left ventricular segmental wa ll motion abnormalities present, as shown in the diagram below. Doppler assessment is consistent with e levated left sided filling pressure. The basal anteroseptal, basal anterior, basal anterolateral, basal inferolateral, basal inferior, basal inf eroseptal, mid anteroseptal, mid anterolateral, mid inferolateral, mid in feroseptal, apical anterior, and apical lateral wall segments are hypoki netic (score 2). The mid anterior, mid inferior, apical septal, and apical inferior wall segments are akinetic (score 3). Overall wallmotion score index is 2.25 Left Atrium: The left atrium is moderate ly dilated. (46 ml/m2 by volume index) Right Ventricle: Right ventricular chamb er size, wall thickness, and systolic function are within normal limi ts. Pulmonary artery hypertension could not be assessed due to inadequate tricuspid regurgitation jet. Right Atrium: The right atrium appears n ormal. Aortic Valve: The aortic valve is tricus pid. The aortic valve leaflets are mildly th ickened. There is aortic annular calcification. There is no evidence of aortic valve st enosis. There is no evidence of aortic regurgit ation. Mitral Valve: The mitral valve appears n ormal in structure and function. There is trace mitral regurgitation pre sent. Tricuspid Valve: The tricuspid valve gera ears normal in structure and function. There is trace tricuspid regurgitation present. Pulmonic Valve: The pulmonic valve appea rs normal in structure and function. Pericardium: The pericardium appears nor mal and there is no evidence of a pericardial effusion. Aorta: The aortic root is normal in size . The ascending aorta is normal in size. Pulmonary Artery: The main pulmonary art anila appears normal. Venous: The inferior vena cava appears n ormal in size. There is a greater than 50% respiratory change in the inferior vena cava dimension. Misc: Two-dimensional echo, spectral Dop pler and color Doppler performed. Optison contrast (one 3 ml vial) was us ed to enhance endocardial definition. Excess contrast was discarde d. Chambers 2D Value Units (Range) IVSd (2D) 0.9 cm LVPWd (2D) 0.9 cm IVS:LVPW ratio (2D) 1 ratio RWT (2D) 0.3 ratio RWT PW (2D) 0.3 ratio LVIDd (2D) 5.6 cm LVIDs (2D) 4.9 cm LVIDd (2D) index 2.8 cm/m2 LVIDs (2D) index 2.5 cm/m2 LV FS (2D) 12 % EF Teichholz (2D) 25 % Ao root diameter (2D3.2 cm (2.1 - 3.6) Ascending Ao 3.4 cm (2 - 3.5) Volumes/Mass Value Units (Range) LA Area 4 CH 27.2 cm2 (<21) RA AREA 4CH 16.4 cm2 LA ESV BP (MOD) inde45.6 ml/m2 LV ESV SP 4CH (MOD) 119 ml LV ESV SP 2CH (MOD) 116 ml LV EDV BP 176 ml LV ESV BP 125 ml LV EDV BP index 88 ml/m2 LV ESV BP index 62.5 ml/m2 BP EF (MOD) 29 % LV mass (2D) 189.1 g LV mass (2D) index 94.6 g/m2 Diastolic/Systolic Function Value Units (Range) MV E-wave Vmax 0.8 m/sec MV deceleration [id number] msec MV A-wave Vmax 0.8 m/sec MV E:A ratio 1.1 ratio LV septal e' Vmax 0 m/sec LV lateral e' Vmax 0 m/sec LV average e' Vmax 0 m/sec LV E:e' septal ratio21.2 ratio LV E:e' lateral rati21.2 ratio LV average E:e' rati21.2 ratio Tricuspid Valve Value Units (Range) TAPSE 1.9 cm Wall Motion: Segment Name Rest Base-Anteroseptal Hypokinetic Base-Anterior Hypokinetic Base-Anterolateral Hypokinetic Base-Posterolateral Hypokinetic Base-Inferior Hypokinetic Base-Inferoseptal Hypokinetic Mid-Anteroseptal Hypokinetic Mid-Anterior Akinetic Mid-Anterolateral Hypokinetic Mid-Posterolateral Hypokinetic Mid-Inferior Akinetic Mid-Inferoseptal Hypokinetic [place]-Septal Akinetic [place]-Anterior Hypokinetic [place]-Lateral Hypokinetic [place]-Inferior Akinetic [place]-Tip Akinetic This report has been electronically sign ed by: _ Blade Preston MD 07/06/2017 08:53:15 Images reviewed and interpretation [facility] Daphne Shahid MD ECHO ORDERABLES Performing Organization Address City/State/ZIP Code Phon e Number HEARTLAB SYSTEM Differential, Automated (07/05/2017 4:55 PM EST) P athologist Signature Neutrophils % 77.0 % [facility] Neutr Abs (ANC) 5.26 1.70 - [facility] 6.10 [facility] x10(3)/[facility] LABORATORY Lymphocytes % 13.3 % [facility] Lymphocytes Abs 0.9 0.9 - 3.2 [facility] x10(3)/[facility] LABORATORY Monocytes % 8.2 % [facility] Monocyte Abs 0.6 0.3 - 0.9 [facility] x10(3)/[facility] LABORATORY Eosinophils % 0.7 % [facility] Eosinophils Abs 0.0 0.0 - 0.4 [facility] x10(3)/[facility] LABORATORY Basophils % 0.4 % [facility] Basophils Abs 0.0 0.0 - 0.1 [facility] x10(3)/[facility] LABORATORY Immature Gran % 0.40 % [facility] Comment: Immature granulocytes(IG's)percentage an d absolute count will include metamyelocytes, myelocytes, and promyelo cytes. Blood smears from CBCs yielding IG's will be scanned manually for concor dance. If this scan disagrees with the automated IG or if promyelocytes are not ed, a manual differential will be performed. Melisa Gran Abs 0.03 0.00 - 0.04 x10(3)/[facility] Specimen Anatomical Collection Method Collection Time Receive d Time (Source) Location / / Volume Laterality Blood specimen 07/05/2017 4:55 PM 017 5:24 (specimen) EST PM EST Resulting Agency Comment Spec In Lab Daphne Shahid MD HEMATOLOGY ORDERABLES Performing Organization Address City/State/[place] [address] (ABNORMAL) Hemogram (07/05/2017 4:55 PM EST) Analysis Performed At Patho logist Time Signature WBC 6.8 4.0 - 9.5 [facility] x10(3)/[facility] LABORATORY RBC 4.67 4.58 - [facility] 5.54 [facility] x10(6)/[facility] LABORATORY Hemoglobin 14.0 13.7 - [facility] 16.5 gm/dL [facility] Hematocrit 41.0 40.5 - [facility] MCV 87.8 82.9 - [facility] 93.1 fL [facility] MCH 30.0 27.5 - [facility] 32.1 pg [facility] MCHC 34.1 32.0 - [facility] 35.7 gm/dL [facility] Platelets 197 145 - 357 [facility] x10(3)/[facility] LABORATORY RDWSD 46.4 (H) 36.0 - [place] [facility] 45.0 [facility] LABORATORY RDWCV 14.5 (H) 11.4 - [place] RYAN 13.8 % [facility] MPV 9.7 7.6 - 12.9 [facility] LABORATORY nRBC % Auto 0.0 % [facility] nRBC Abs Auto 0.000 0.000 - [facility] 0.000 [facility] x10(3)/[facility] LABORATORY Specimen Anatomical Collection Method Collection Time Receive d Time (Source) Location / / Volume Laterality Blood specimen 07/05/2017 4:55 PM 017 5:24 (specimen) EST PM EST Resulting Agency Comment Spec In Lab Daphne Shahid MD HEMATOLOGY ORDERABLES Performing Organization Address City/State/ZIP Code Phon e Number [place] [address] (ABNORMAL) Cardiac Enzymes (LEB/CGP) (07/05/2017 4:55 PM EST) P athologist Signature Troponin-T 1.69 (H) 0.00 - [place] 0.00 ng/mL [facility] Comment: The 99th percentile for Troponin T is le ss than 0.01 ng/mL, any detectable cTnT concentration using this assay should be considered elevated. According to the third universal definit ion of myocardial infarction the following criteria with a clinical prese ntation consistent with acute myocardial ischemia meets the diagnosis for a myocardial infarction (MT). Detection of a rise and/or fall of [...] additional sample may be indicated. Reference: [employer] Definition of Myocardial Infarction. Journal of the [place] [employer] 2012;60:1581-98 CK, Total 191 0 - 200 unit/L [facility] Specimen Anatomical Collection Method Collection Time Receive d Time (Source) Location / / Volume Laterality Blood specimen 07/05/2017 4:55 PM 017 5:56 (specimen) EST PM EST Resulting Agency Comment Spec In Lab Daphne Shahid MD CHEMISTRY ORDERABLES Performing Organization Address City/[facility] [place] [address] (ABNORMAL) pro-Brain Natriuretic Peptide (07/05/2017 4:55 PM EST) athologist Signature ProBNP 1,598 (H) <=125 [facility] Specimen Anatomical Collection Method Collection Time Receive d Time (Source) Location / / Volume Laterality Blood specimen 07/05/2017 4:55 PM 017 5:24 (specimen) EST PM EST Resulting Agency Comment Spec In Lab Daphne Shahid MD CHEMISTRY ORDERABLES Performing Organization Address City/[facility]/[place]IP [place] [address] Magnesium (07/05/2017 4:55 PM EST) P athologist Signature Magnesium 0.78 0.69 - 1.07 [facility] RYAN mmol/L [facility] Specimen Anatomical Collection Method Collection Time Receive d Time (Source) Location / / Volume Laterality Blood specimen 07/05/2017 4:55 PM 017 5:24 (specimen) EST PM EST Resulting Agency Comment Spec In Lab Daphne Shahid MD CHEMISTRY ORDERABLES Performing Organization Address City/[facility]/[place] [address] (ABNORMAL) Basic Metabolic Panel (non-fasting) (07/05/2017 4:55 PM EST) P athologist Signature Glucose Lvl 230 (H) 65 - 199 [facility] mg/dL [facility] Comment: Diabetes: >=200 mg/dL plus symp toms BUN 19 10 - 20 mg/dL [facility] Creatinine 1.04 0.80 - 1.50 mg/dL [facility] Sodium 142 135 - 145 mmol/L [facility] Potassium 4.0 3.5 - 5.0 mmol/L [facility] Comment: Please note: ??Patients with WBC >100,00 0 may have falsely elevated Potassium levels. ??For accurate Potassium quantif ication in these patients send serum separator tube (gold top) for subsequent determinations. ??Contact the Clinical Chemistry Laboratory if there are any qu estions. Chloride 100 98 - 107 mmol/L [facility] CO2 28 22 - 31 mmol/L [facility] Anion Gap 14 5 - 15 mmol/L [facility] Calcium 8.5 8.5 - 10.5 mg/dL [facility] Estimated GFR >60 >=60 [facility] Comment: The reported eGFR should be multiplied b y 1.2 for patients. The MDRD is not an appropriate measure o f renal function for patients with body mass extremes or in patients with acute kidney failure. http://[employer]/DHnkdep http://[employer]/DHMCnkf Specimen Anatomical Collection Method Collection Time Receive d Time (Source) Location / / Volume Laterality Blood specimen 07/05/2017 4:55 PM 017 5:24 (specimen) EST PM EST Resulting Agency Comment Spec In Lab Daphne Shahid MD CHEMISTRY ORDERABLES Performing Organization Address City/State/[place] [address] (ABNORMAL) APTT (07/05/2017 4:55 PM EST) P athologist Signature PTT 41 (H) 25 - 35 sec [facility] Comment: The recommended therapeutic range for fu ll dose, unfractionated heparin at [facility] is 80 ? 114 seconds. The use of the anti-Xa (heparin) level rather than the PTT is recommended for monitoring anticoagul ation intensity in critically ill patients receiving unfractionated hepari n by continuous IV infusion. Specimen Anatomical Collection Method Collection Time Receive d Time (Source) Location / / Volume Laterality Blood specimen 07/05/2017 4:55 PM 017 5:24 (specimen) EST PM EST Resulting Agency Comment Spec In Lab Daphne Shahid MD HEMATOLOGY ORDERABLES Performing Organization Address City/[facility]/ZIP Code Phon e Number [address] (ABNORMAL) POCT Glucose (07/05/2017 4:53 PM EST) P athologist Signature POC Glucose 208 (H) 65 - 199 [facility] mg/dL [facility] Comment: Supplemental ranges: <140 mg/dL before meals <180 mg/dL all other times of the day Specimen Anatomical Collection Method Collection Time Receive d Time (Source) Location / / Volume Laterality Blood specimen 07/05/2017 4:53 PM 017 4:53 (specimen) EST PM EST Daphne Shahid MD POINT OF CARE TEST ORDERABLE S Performing Organization Address City/[facility]/[place] [address] EKG 12 Lead (07/05/2017 4:32 PM EST) Component Value Ref Range Test Analysis Performed Pathologis t Method Time At Signature Ventricular rate 97 BPM MUSE SYSTEM Atrial Rate 97 BPM MUSE SYSTEM P-R Interval 148 ms MUSE SYSTEM QRS Duration 96 ms MUSE SYSTEM Q-T Interval 364 ms MUSE SYSTEM QTC Calculated 462 ms MUSE SYSTEM (Bezet) Calculated P [place] 48 degrees MUSE SYSTEM Calculated R [place] -33 degrees MUSE SYSTEM Calculated T [place] 98 degrees MUSE SYSTEM INTERPRETATION Normal sinus rhythm MUSE SYSTEM Possible Left atrial enlargement Anteroseptal infarct , age undetermined Inferior infarct , noted on/before January 2013 ST & T wave abnormality, consider lateral ischemia Abnormal ECG When compared with ECG of 25-JAN-2013 12:20, Anteroseptal infarct is now Present ST now depressed in Lateral leads T wave inversion now evident in Lateral leads Confirmed by MD LAINA, CALVIN ([id number]) on 07/05/2017 9:56:47 PM Specimen Anatomical Collection Method Collection Time Receive d Time (Source) Location / / Volume Laterality 07/05/2017 4:32 PM 7 9:56 EST PM EST Daphne Shahid MD ECG ORDERABLES Performing Organization Address City/State/ZIP Code Phon e Number MUSE SYSTEM documented in this encounter Visit Diagnoses Diagnosis STEMI (ST elevation myocardial infarctio n) - Primary Acute myocardial infarction, unspecified site, episode of care unspecified Non-ST elevation myocardial infarction ( NSTEMI) Acute myocardial infarction, subendocard ial infarction, episode of care unspecified S/P CABG x 3 Postsurgical aortocoronary bypass status ASHD (arteriosclerotic heart disease) Coronary atherosclerosis of unspecified type of vessel, [place] or graft Cardiomyopathy, ischemic Other specified forms of chronic ischemi c heart disease Hypertension, accelerated, with systolic CHF, 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 ST elevation myocardial infarction (STEM I), unspecified artery S/P CABG x 3 Postsurgical aortocoronary bypass status documented in this encounter Admitting Diagnoses Diagnosis STEMI (ST elevation myocardial infarctio n) Acute myocardial infarction, unspecified site, episode of care unspecified documented in this encounter Administered Medications Inactive Administered Medications - up to 3 most recent administrations Medication Order MAR Action Action Date Dose Rate Site acetaminophen (OFIRMEV) Given 07/08/2017 1:16 PM 1,000 mg 400 mL/hr injection 1,000 mg EST 1,000 mg, Intravenous, at 400 mL/hr, EVERY 6 HOURS SCHEDULED, 4 doses, First dose on Wed07/07/17 at 2000, Last dose on Wed07/08/17 at 1400, Maximum dose of acetaminophen is 4000 mg from all sources in 24 hours., Routine Given 07/08/2017 7:33 AM EST 1,000 mg 400 mL/hr Given 07/08/2017 2:18 AM EST 1,000 mg 400 mL/hr acetaminophen (OFIRMEV) injection Given 07/09/2017 2:[address] 1,000 mg 400 mL/hr 1,000 mg 1,000 mg, Intravenous, at 400 mL/hr, EVERY 8 HOURS SCHEDULED, 3 doses, First dose on Wed07/08/17 at 2330, Last dose on Wed07/09/17 at 1400, Maximum dose of acetaminophen is 4000 mg from all sources in 24 hours., Routine Given 07/09/2017 5:06 AM EST 1,000 mg 400 mL/hr Given 07/09/2017 12:07 AM EST 1,000 mg 400 mL/hr acetaminophen (TYLENOL) tablet 1,000 mg Given 07/12/2017 5:44 AM EST 1,000 mg 1,000 mg, Oral, EVERY 6 HOURS PRN, Starting on Wed07/09/17 at 1509, Until Wed07/14/17 at 1639, Pain, Maximum dose of acetaminophen is 4000 mg from all sources in 24 hours., Routine Given 07/11/2017 12:23 AM EST 1,000 mg Given 07/10/2017 1:41 PM EST 1,000 mg acetaminophen (TYLENOL) tablet 650 mg Given 07/07/2017 4:05 AM EST 650 mg 650 mg, Oral, EVERY 6 HOURS PRN, Starting on Wed07/06/17 at 1950, Until Wed07/07/17 at 1838, Pain, Maximum dose of acetaminophen is 4000 mg from all sources in 24 hours., Routine Given 07/06/2017 7:57 PM EST 650 mg albumin, human 5% 250 mL bottle Given 07/08/2017 9:28 PM EST 25 g Intravenous, ONCE, 1 dose, On Ivis 07/08/17 at 2100, PRN as needed for volume replacement to maintain cardiac index greater than or equal to 2.0 L/min/M2, Recovery ([facility]), STAT AMIOdarone (CORDARONE) 150 mg in Given 07/09/2017 10:45 AM EST 1 50 mg 618 mL/hr dextrose 5% 103 mL bolus infusion 150 mg, Intravenous, ONCE, 1 dose, On Wed07/09/17 at 1045, Administer over 10 Minutes, Use in-line filter. Warning Vesicant/Irritant Medication AMIOdarone (CORDARONE) 360 mg in New Bag 07/09/2017 2:01 PM ES T 1 mg/min 33.3 mL/hr dextrose 5% 200 mL infusion 0.5-1 mg/min (16.6667-33.3333 mL/hr, rounded to 16.7-33.3 mL/hr), Intravenous, CONTINUOUS, Starting on Wed07/09/17 at 0300, Until Wed07/09/17 at 1513, Initiate loading infusion (slow): 1 mg/minute over 6 hours, then decrease to maintenance Infusion: 0.5 mg/minute over 18 hours. At 24 hours from start time, call MD regarding infusion or change to oral dosing. New Bag 07/09/2017 10:39 AM EST 1 mg/min 33.3 mL/hr Rate/Dose Verify 07/09/2017 10:00 AM EST 0.999 mg/min 33.3 mL/hr AMIOdarone (CORDARONE) Rate/Dose Verify 07/10/2017 12:00 AM 0.5 mg/ min 16.7 mL/hr 360 mg in dextrose 5% EST 200 mL infusion 1 mg/min (33.3333 mL/hr, rounded to 33.3 mL/hr), Intravenous, CONTINUOUS, Starting on Wed07/09/17 at 0230, Until Wed07/10/17 at 0229, 1mg/min for 6hrs, then 0.5mg/min for 18hrs. After first 24hours, order maintenance dose 0.5 mg/min. Use in-line filter. Rate/Dose Verify 07/09/2017 10:00 PM EST 0.5 mg/min 16.7 mL/hr Rate/Dose Verify 07/09/2017 8:00 PM EST 0.5 mg/min 16.7 mL/hr AMIOdarone (CORDARONE) 360 mg New Bag 07/12/2017 8:18 PM EST 0 .5 mg/min 16.7 mL/hr in dextrose 5% 200 mL infusion 1 mg/min (33.3333 mL/hr, rounded to 33.3 mL/hr), Intravenous, CONTINUOUS, Starting on Wed07/11/17 at 0900, Until Wed07/13/17 at 1000, 1mg/min for 6hrs, then 0.5mg/min for 18hrs. After first 24hours, order maintenance dose 0.5 mg/min. Use in-line filter. Rate/Dose Change 07/12/2017 7:51 PM EST 0.5 mg/min 16.7 mL/hr Rate/Dose Change 07/12/2017 12:00 PM EST 1.59 mg/min 53 mL/hr AMIOdarone (CORDARONE) 360 mg/200 mL (1. 8 mg/mL) infusion 1 dose, Starting on Wed07/09/17 at 0239, Until Wed at 0321, STEPHANIE GODOY: cabinet override AMIOdarone (CORDARONE) bolus from Bolus from Bag 07/09/2017 2:[address] 150 mg bag 150 mg 150 mg, Intravenous, ONCE, 1 dose, On Wed07/09/17 at 0300, Rapid Load. Bolus from Bag, Routine AMIOdarone (CORDARONE) bolus from Bolus from Bag 07/11/2017 8:[address] 150 mg bag 150 mg 150 mg, Intravenous, ONCE, 1 dose, On Wed07/11/17 at 0900, Warning Vesicant/Irritant Medication , Routine AMIOdarone (CORDARONE; PACERONE) tablet 200 Given 07/10/2017 9:04 PM EST 200 mg mg 200 mg, Oral, 2 TIMES DAILY, First dose (after last modification) on Wed07/09/17 at 2100, Until Discontinued, Routine Given 07/10/2017 10:20 AM EST 200 mg Given 07/09/2017 8:36 PM EST 200 mg AMIOdarone (CORDARONE; PACERONE) tablet 400 Given 07/14/2017 9:22 AM EST 400 mg mg 400 mg, Oral, DAILY, First dose on Wed07/13/17 at 0745, Until Discontinued, Routine Given 07/13/2017 8:41 AM EST 400 mg aspirin chewable tablet 81 mg Given 07/14/2017 9:22 AM EST 81 mg 81 mg, Oral, DAILY, First dose on Wed07/07/17 at 1900, Until Discontinued, Start on post-op day 1 in the AM., Routine Given 07/13/2017 8:41 AM EST 81 mg Given 07/12/2017 8:21 AM EST 81 mg aspirin EC tablet 81 mg Given 07/07/2017 8:54 AM EST 81 mg 81 mg, Oral, DAILY, First dose on Wed07/06/17 at 0900, Until Discontinued, Routine Given 07/06/2017 10:35 AM EST 81 mg aspirin suppository 300 mg Given 07/08/2017 8:09 AM EST 300 mg 300 mg, Rectal, DAILY, First dose on Wed07/07/17 at 1900, Until Discontinued, Start on post-op day 1 in the AM Give MD if unable to take PO, Routine Given 07/07/2017 10:28 PM EST 300 mg atorvastatin (LIPITOR) tablet 40 mg Given 07/13/2017 5:38 PM EST 40 mg 40 mg, Oral, EVERY EVENING, First dose (after last modification) on Wed07/09/17 at 1700, Until Discontinued, Routine Given 07/12/2017 4:11 PM EST 40 mg Given 07/11/2017 4:14 PM EST 40 mg atorvastatin (LIPITOR) tablet 80 mg Given 07/06/2017 4:51 PM EST 80 mg 80 mg, Oral, EVERY EVENING, First dose on 07/05/17 at 2015, Until Discontinued, Routine Given 07/05/2017 8:58 PM EST 80 mg bisacodyl (DULCOLAX) suppository 10 mg Given 07/11/2017 2:02 PM EST 10 mg 10 mg, Rectal, DAILY PRN, Starting on 07/10/17 at 0000, Until 07/14/17 at 1639, Constipation, Starting post-op day 3., Routine ceFAZolin (ANCEF) 2g in dextrose 5% New Bag 07/14/2017 9:32 AM EST 2 g 200 mL/hr 100 mL 2 g, Intravenous, EVERY 8 HOURS, First dose on Wed07/12/17 at 1800, Until Discontinued, Administer over 30 Minutes, Indication for (Active or Suspected): Skin/Skin Structure New Bag 07/14/2017 1:43 AM EST 2 g 200 mL/hr New Bag 07/13/2017 5:38 PM EST 2 g 200 mL/hr cefUROXime (ZINACEF) 750mg vial New Bag 07/08/2017 4:10 PM EST 750 mg 200 mL/hr attach to sodium chloride 0.9% 100 mL Mini-Bag Plus 750 mg, Intravenous, EVERY 8 HOURS, 3 doses, First dose on Ivis 07/08/17 at 0000, Last dose on Ivis 07/08/17 at 1600, Administer over 30 Minutes, Attach to 100 mL sodium Chloride Mini-bag Plus. Give first dose at 8 hours after dose in operating room., Indication for (Active or Suspected): Prophylaxis New Bag 07/08/2017 8:08 AM EST 750 mg 200 mL/hr New Bag 07/08/2017 12:17 AM EST 750 mg 200 mL/hr chlorhexidine (PERIDEX) 0.12 % oral solution Given 9:22 AM EST 15 mLs 15 mL 15 mL, Oral, EVERY 12 HOURS SCHEDULED (2 times per day), First dose on Wed07/07/17 at 2100, Until Discontinued, [place] teeth, Routine Given 07/08/2017 10:06 PM EST 15 mLs Given 07/08/2017 8:08 AM EST 15 mLs EPINEPHrine 2 mg in Rate/Dose Change 07/08/2017 8:00 PM 2 mcg/min 15 mL/hr dextrose 5% 250 mL EST infusion 0-10 mcg/min (0-75 mL/hr), Intravenous, CONTINUOUS, Starting on Wed07/07/17 at 1900, Until Wed07/09/17 at 0656, Titrate to keep systolic blood pressure greater than 90 mmHg. Start at 1 mcg/min, adjust by 1 mcg/min every 3 minutes. Dose not to exceed 10 mcg/min. Use if phenylephrine or vasopressin or norepinephrine is ineffective. Call pager # [phone] if initiated. Rate/Dose Change 07/08/2017 7:01 PM EST 3 mcg/min 22.5 mL/hr Rate/Dose Verify 07/08/2017 6:00 PM EST 4 mcg/min 30 mL/hr fentaNYL 50 mcg/mL Rate/Dose Verify 07/09/2017 11:15 AM 25 mcg/hr 0. 5 mL/hr infusion EST 0-150 mcg/hr (0-3 mL/hr), Intravenous, CONTINUOUS, Starting on Wed07/07/17 at 1900, Until Wed07/09/17 at 1513, Titrate to patient comfort, pain scale 1-3. Start at 25 mcg/hr, adjust by 25 mcg/hr every 15 minutes. Dose not to exceed 100 mcg/hour. Rate/Dose Verify 07/09/2017 10:00 AM EST 25 mcg/hr 0.5 mL/hr Rate/Dose Change 07/09/2017 7:09 AM EST 25 mcg/hr 0.5 mL/hr fentaNYL bolus from bag 25 mcg Bolus from Bag 07/09/2017 9:56 AM EST 25 mcg 25 mcg, Intravenous, EVERY 10 MIN PRN, Starting on Wed07/07/17 at 1839, Until Wed07/09/17 at 1513, Pain, For breakthrough pain (pain scale greater than 3), while intubated, Maximum dose 300 mcg over one hour., Routine Bolus from Bag 07/09/2017 9:35 AM EST 25 mcg Bolus from Bag 07/09/2017 7:45 AM EST 25 mcg furosemide (LASIX) injection 20 mg Given 07/06/2017 10:36 AM EST 20 mg 20 mg, Intravenous, ONCE, 1 dose, On Wed07/06/17 at 1045, Routine furosemide (LASIX) injection 20 mg Given 07/10/2017 10:21 AM EST 20 mg 20 mg, Intravenous, DAILY, 2 doses, First dose on Wed07/09/17 at 0930, Last dose on Wed07/10/17 at 0900, Please hold for SBP <90 Given 07/09/2017 9:21 AM EST 20 mg furosemide (LASIX) tablet 20 mg Given 07/12/2017 8:21 AM EST 20 mg 20 mg, Oral, DAILY, First dose on Wed07/11/17 at 1600, Until Discontinued, Routine Given 07/11/2017 4:14 PM EST 20 mg furosemide (LASIX) tablet 20 mg Given 07/12/2017 10:03 AM EST 20 mg 20 mg, Oral, ONCE, 1 dose, On Wed07/12/17 at 1015, Routine furosemide (LASIX) tablet 20 mg 20 mg, Oral, DAILY, First dose on Wed at 0900, Until Discontinued, Routine furosemide (LASIX) tablet 40 mg Given 07/14/2017 9:22 AM EST 40 mg 40 mg, Oral, DAILY, 7 doses, First dose (after last modification) on Wed07/13/17 at 0900, Last dose on Wed07/19/17 at 0900, Routine Given 07/13/2017 8:40 AM EST 40 mg heparin (porcine) 25,000 unit/500 mL (50 unit/mL) infusion 1 dose, Starting on Wed07/05/17 at 1634 , Until Wed07/05/17 at 1711, PRIOR, YANET Deal: gita override heparin (porcine) injection 0-4,000 Given 07/07/2017 6:04 AM EST 2,000 Units Units 0-4,000 Units, Intravenous, BOLUS PER HEPARIN PROTOCOL, Starting on Wed07/05/17 at 1654, Until Wed07/07/17 at 1838, Per Protocol, START ADJUSTMENT SCHEDULE 6 HOURS AFTER STARTING INFUSION aPTT Between 60 - 79 seconds: Bolus 2,000 units aPTT Less than 60 seconds: Bolus 4,000 units Increase infusion and recheck aPTT in 6 hours. , Routine Given 07/06/2017 4:24 AM EST 4,000 Units Given 07/05/2017 10:52 PM EST 4,000 Units heparin 2000 units in sodium New Bag 07/07/2017 7:00 PM EST 3 mL/h r 3 mL/hr chloride 0.9% 1000 mL infusion 3-5 mL/hr, Intravenous, CONTINUOUS, Starting on Wed07/07/17 at 1900, Until Wed07/09/17 at 0906, Flush #1 at 300 mmHg to central lumen transducer. Change tubing and bag every 72 hours., Routine heparin 25,000 units in Rate/Dose Verify 07/07/2017 10:00 2,400 Uni ts/hr 48 mL/hr dextrose 5% 500 mL AM EST infusion 0-5,000 Units/hr (0-100 mL/hr), Intravenous, CONTINUOUS, Starting on Wed07/05/17 at 1715, Until Wed07/07/17 at 1838, BEGIN infusion at 1,000 units per hr (12 units/kg/hr). MAX INITIAL infusion rate is 1,000 units/hr. Target PTT = 80 - 114 seconds Start adjustment schedule 6 hours after starting infusion. If PTT is: - less than 60 seconds, Administer PRN bolus and increase rate by 350 units per hr (4 units/kg/hr) - 60 - 79 seconds, Administer PRN bolus and increase rate by 150 units per hr (2 units/kg/hr) - 80 - 114 seconds, No Change - 115 - 129 seconds, decrease rate by 100 units per hr (1 units/kg/hr) - 130 - 145 seconds, stop infusion for 30 minutes, then decrease rate by 150 units per hr (2 units/kg/hr) - Greater than 145 seconds, stop infusion for 60 minutes, then decrease rate by 250 units per hour (3 units/kg/hr) Repeat aPTT 6 hours after initiating heparin. Then 6 hours after each dose adjustment. When 2 consecutive aPTT within target range of 80 - 114 seconds, change aPTT to once every 24 hours with A.M. labs while on heparin. RN to order required aPTT - Per Protocol, Routine Rate/Dose Verify 07/07/2017 8:00 AM EST 2,400 Units/hr 48 mL/hr Rate/Dose Change 07/07/2017 6:00 AM EST 2,400 Units/hr 48 mL/hr hyaluronidase (ovine) (VITRASE) injection 1-10 Given 09/13/2016 7:00 AM EST 1 mL mL 1-10 mL, Subcutaneous, ONCE, 1 dose, On Wed07/13/17 at 0645, Hyaluronidase is supplied in a 1-mL vial at a concentration of 200 units/mL. Dilute with 9 mL of normal saline. This yields the desired concentration of 20 units/mL. Draw up 1 mL increments of the diluted solution into a 1-mL syringe with a 26-g needle. Instill 0.2 -mL aliquots of the solution at least every 2 - 3 centimeters or five evenly spaced aliquots subcutaneously around the periphery of the infiltrated area. Use a new 26-gauge needle for each injection. This is best done within one hour of the extravasation. Discard the remaining solution. , STAT hyaluronidase (ovine) (VITRASE) injection 1-10 Given 09/13/2016 7:55 AM EST 2 mLs mL 1-10 mL, Subcutaneous, ONCE, 1 dose, On Wed07/13/17 at 0745, Hyaluronidase is supplied in a 1-mL vial at a concentration of 200 units/mL. Dilute with 9 mL of normal saline. This yields the desired concentration of 20 units/mL. Draw up 1 mL increments of the diluted solution into a 1-mL syringe with a 26-g needle. Instill 0.2 -mL aliquots of the solution at least every 2 - 3 centimeters or five evenly spaced aliquots subcutaneously around the periphery of the infiltrated area. Use a new 26-gauge needle for each injection. This is best done within one hour of the extravasation. Discard the remaining solution. , STAT insulin glargine VIAL injection 14 Units Given 07/05/2017 9:32 PM EST 14 Units 14 Units, Subcutaneous, NIGHTLY, First dose on Wed07/05/17 at 2100, Until Discontinued, Routine insulin glargine VIAL injection 30 Units Given 07/09/2017 8:38 PM EST 30 Units 30 Units, Subcutaneous, NIGHTLY, First dose on Wed07/09/17 at 2100, Until Discontinued, Routine insulin glargine VIAL injection 50 Units Given 07/14/2017 9:29 AM EST 50 Units 50 Units, Subcutaneous, EVERY 24 HOURS, First dose (after last modification) on Wed07/14/17 at 1000, Until Discontinued, Routine insulin glargine VIAL injection 60 Units Given 07/10/2017 11:56 AM EST 60 Units 60 Units, Subcutaneous, EVERY 24 HOURS, First dose on Wed07/10/17 at 1000, Until Discontinued, Routine insulin glargine VIAL injection 65 Units Given 07/13/2017 9:01 AM EST 65 Units 65 Units, Subcutaneous, EVERY 24 HOURS, First dose (after last modification) on Wed07/11/17 at 1000, Until Discontinued, Routine Given 07/12/2017 10:03 AM EST 65 Units Given 07/11/2017 11:13 AM EST 65 Units insulin lispro (humaLOG) VIAL injection 0-10 Given 9:28 AM EST 5 Units Units 0-10 Units, Subcutaneous, 3 TIMES DAILY WITH MEALS, First dose (after last modification) on Wed07/13/17 at 1700, Until Discontinued, [employer] Give 1 unit for every 8 grams carbohydrate. Hold if not eating or if BS <90, Routine Given 07/13/2017 6:36 PM EST 5 Units insulin lispro (humaLOG) VIAL injection Given 07/14/2017 12:15 P M EST 4 Units 0-12 Units 0-12 Units, Subcutaneous, EVERY 4 HOURS SCHEDULED, First dose on Wed07/10/17 at 0930, Until Discontinued, CORRECTION BOLUS to start when insulin drip discontinued Custom scale BG 140 - 160 Give 1 unit BG 161 - 180 Give 2 units BG 181 - 200 Give 4 units BG 201 - 220 Give 6 units BG 221 - 240 Give 9 units BG greater than 240, give 12 units and recheck BG in 2 hours. If BG remains greater than 240, repeat 12 units (no more than three times) & call for new basal insulin orders. If less than 240 after two hours, give no insulin and resume prior schedule., Routine Given 07/13/2017 1:07 PM EST 2 Units Given 07/12/2017 11:37 AM EST 2 Units insulin lispro (humaLOG) VIAL injection 0-20 Given 1:07 PM EST 7 Units Units 0-20 Units, Subcutaneous, 3 TIMES DAILY WITH MEALS, First dose on Wed07/10/17 at 1200, Until Discontinued, [employer] Give 1 unit for every 5 grams carbohydrate. Hold if not eating or if BS <90, Routine Given 07/13/2017 8:42 AM EST 13 Units Given 07/12/2017 5:57 PM EST 5 Units insulin regular human Bolus from Bag 07/05/2017 9:03 PM EST 12 Units (HumuLIN;NovoLIN) 1 unit/mL 150 Units in sodium chloride 0.9%150 mL BOLUS 0-16 Units 0-16 Units, Intravenous, PER INSULIN PROTOCOL, Starting on Wed07/05/17 at 1940, Until Wed07/07/17 at 1838, Per Protocol, BOLUS order. Type 2 Initial bolus 8 Units. Adjustment bolus per insulin infusion protocol: IV insulin Bolus scale: For BG in mg/dL (250-299 = 8 units, 300-359 = 12 units, greater than 360 = 16 units), Routine Bolus from Bag 07/05/2017 8:07 PM EST 8 Units insulin regular human Bolus from Bag 07/08/2017 4:14 AM EST 8 Units (HumuLIN;NovoLIN) 1 unit/mL 150 Units in sodium chloride 0.9%150 mL BOLUS 0-16 Units 0-16 Units, Intravenous, PER INSULIN PROTOCOL, Starting on 07/07/17 at 1839, Until Ivis 07/08/17 at 0426, Per Protocol, BOLUS order. Type 2 No Initial bolus. Adjustment bolus per insulin infusion protocol: IV insulin Bolus scale: For BG in mg/dL (250-299 = 8 units, 300-359 = 12 units, greater than 360 = 16 units), Routine Bolus from 07/08/2017 3:01 AM EST 8 Units Bolus from 07/08/2017 2:04 AM EST 8 Units insulin regular human Bolus from 07/08/2017 4:54 AM EST 8 Units (HumuLIN;NovoLIN) 1 unit/mL 150 Units in sodium chloride 0.9%150 mL BOLUS 0-16 Units 0-16 Units, Intravenous, PER INSULIN PROTOCOL, Starting on Ivis 07/08/17 at 0427, Until [place] 07/11/17 at 0909, Per Protocol, BOLUS order. Type 2 Initial bolus 8 Units. Adjustment bolus per insulin infusion protocol: IV insulin Bolus scale: For BG in mg/dL (250-299 = 8 units, 300-359 = 12 units, greater than 360 = 16 units), Routine insulin regular human Rate/Dose Change 07/07/2017 12:00 PM 4 Units/hr 4 mL/hr (HumuLIN;NovoLIN) 1unit/mL EST 150 Units in sodium chloride 0.9% 150 mL infusion 0.5-16 Units/hr (0.5-16 mL/hr), Intravenous, CHANGE BAG EVERY EVENING, First dose on 07/05/17 at 2000, Until Discontinued, Type 2 diabetes. Current blood glucose 240 - 299 Titration- aim for target range of 140 - 180 mg/dL. Check BG every hour unless otherwise indicated. [[ Initial bolus of 8 units, then begin continuous infusion at 5 units/hour. ]] If BG at the time the infusion is started outside of the CURRENT BLOOD GLUCOSE range above, contact MD for new starting rate/bolus order. When infusion is paused, turn it back on as soon as possible per protocol. If BG at the time the infusion is started is outside of the CURRENT BLOOD GLUCOSE range above, contact provider for new starting rate/bolus order. Current BG less than 80 - Stop insulin. If BG less than 70, treat per hypoglycemia protocol. Re-check BG in 30 minutes and as soon as BG is greater than 80, restart with rate 50% of previous rate. If infusion stopped after previous rate had been 0.5 unit/hour, recheck every hour and when BG greater than 100 and higher than last test restart at 0.5 unit/hour. IF INFUSION IS PAUSED, TURN IT BACK ON SOON POSSIBLE, PER PROTOCOL. Current BG 80 - 139 - If BG dropped 10 mg/dL or more since last test, decrease rate by 50% and re-check in 30 minutes. Otherwise, decrease rate by 0.5 units/hour. Current BG 140 - 180 - If BG dropped 50 mg/dL or more since last test, decrease rate by 1 unit/hour. Otherwise, maintain same rate. Current BG 181 - 220 - If BG is lower than last test, maintain same rate. Otherwise, increase rate by 0.5 units/hour. Current BG 221 - 250 - If BG dropped 30 mg/dL or more since last test, maintain same rate. Otherwise, increase rate by 1 unit/hour. Current BG greater than 250 - Increase rate by 1 unit/hour AND bolus with Regular insulin IV as per IV Bolus Scale. Re-check BG in 30 minutes. THE FIRST DOSE OF SC INSULIN OUGHT TO BE ADMINISTERED BEFORE DISCONTINUING THE INFUSION. AN OVERLAP OF 2-3 HOURS IS RECOMMENDED. Continue to monitor the BG hourly., Routine Rate/Dose Change 07/07/2017 10:00 AM EST 3.5 Units/hr 3.5 mL/hr Rate/Dose Verify 07/07/2017 8:00 AM EST 3 Units/hr 3 mL/hr insulin regular human Rate/Dose Change 07/08/2017 4:13 AM 13 Units/hr 13 mL/hr (HumuLIN;NovoLIN) 1unit/mL EST 150 Units in sodium chloride 0.9% 150 mL infusion 0.5-16 Units/hr (0.5-16 mL/hr), Intravenous, CHANGE BAG EVERY EVENING, First dose on Wed07/07/17 at 1900, Until Discontinued, Type 2 diabetes. Current blood glucose 140 - 179 Titration- aim for target range of 140 - 180 mg/dL. Check BG every hour unless otherwise indicated. [[ No initial bolus. Begin continuous infusion at 2 units/hour. ]] If BG at the time the infusion is started outside of the CURRENT BLOOD GLUCOSE range above, contact MD for new starting rate/bolus order. When infusion is paused, turn it back on as soon as possible per protocol. If BG at the time the infusion is started is outside of the CURRENT BLOOD GLUCOSE range above, contact provider for new starting rate/bolus order. Current BG less than 80 - Stop insulin. If BG less than 70, treat per hypoglycemia protocol. Re-check BG in 30 minutes and as soon as BG is greater than 80, restart with rate 50% of previous rate. If infusion stopped after previous rate had been 0.5 unit/hour, recheck every hour and when BG greater than 100 and higher than last test restart at 0.5 unit/hour. IF INFUSION IS PAUSED, TURN IT BACK ON SOON POSSIBLE, PER PROTOCOL. Current BG 80 - 139 - If BG dropped 10 mg/dL or more since last test, decrease rate by 50% and re-check in 30 minutes. Otherwise, decrease rate by 0.5 units/hour. Current BG 140 - 180 - If BG dropped 50 mg/dL or more since last test, decrease rate by 1 unit/hour. Otherwise, maintain same rate. Current BG 181 - 220 - If BG is lower than last test, maintain same rate. Otherwise, increase rate by 0.5 units/hour. Current BG 221 - 250 - If BG dropped 30 mg/dL or more since last test, maintain same rate. Otherwise, increase rate by 1 unit/hour. Current BG greater than 250 - Increase rate by 1 unit/hour AND bolus with Regular insulin IV as per IV Bolus Scale. Re-check BG in 30 minutes. THE FIRST DOSE OF SC INSULIN OUGHT TO BE ADMINISTERED BEFORE DISCONTINUING THE INFUSION. AN OVERLAP OF 2-3 HOURS IS RECOMMENDED. Continue to monitor the BG hourly., Routine Rate/Dose Change 07/08/2017 3:00 AM EST 12 Units/hr 12 mL/hr Rate/Dose Change 07/08/2017 2:03 AM EST 10 Units/hr 10 mL/hr insulin regular human Rate/Dose Change 07/10/2017 8:59 AM 3.5 Units /hr 3.5 mL/hr (HumuLIN;NovoLIN) EST 1unit/mL 150 Units in sodium chloride 0.9% 150 mL infusion 0.5-16 Units/hr (0.5-16 mL/hr), Intravenous, CHANGE BAG EVERY EVENING, First dose on Ivis 07/08/17 at 0500, Until Discontinued, Type 2 diabetes. Current blood glucose 240 - 299 Titration- aim for target range of 140 - 180 mg/dL. Check BG every hour unless otherwise indicated. [[ Initial bolus of 8 units, then begin continuous infusion at 5 units/hour. ]] If BG at the time the infusion is started outside of the CURRENT BLOOD GLUCOSE range above, contact MD for new starting rate/bolus order. When infusion is paused, turn it back on as soon as possible per protocol. If BG at the time the infusion is started is outside of the CURRENT BLOOD GLUCOSE range above, contact provider for new starting rate/bolus order. Current BG less than 80 - Stop insulin. If BG less than 70, treat per hypoglycemia protocol. Re-check BG in 30 minutes and as soon as BG is greater than 80, restart with rate 50% of previous rate. If infusion stopped after previous rate had been 0.5 unit/hour, recheck every hour and when BG greater than 100 and higher than last test restart at 0.5 unit/hour. IF INFUSION IS PAUSED, TURN IT BACK ON SOON POSSIBLE, PER PROTOCOL. Current BG 80 - 139 - If BG dropped 10 mg/dL or more since last test, decrease rate by 50% and re-check in 30 minutes. Otherwise, decrease rate by 0.5 units/hour. Current BG 140 - 180 - If BG dropped 50 mg/dL or more since last test, decrease rate by 1 unit/hour. Otherwise, maintain same rate. Current BG 181 - 220 - If BG is lower than last test, maintain same rate. Otherwise, increase rate by 0.5 units/hour. Current BG 221 - 250 - If BG dropped 30 mg/dL or more since last test, maintain same rate. Otherwise, increase rate by 1 unit/hour. Current BG greater than 250 - Increase rate by 1 unit/hour AND bolus with Regular insulin IV as per IV Bolus Scale. Re-check BG in 30 minutes. THE FIRST DOSE OF SC INSULIN OUGHT TO BE ADMINISTERED BEFORE DISCONTINUING THE INFUSION. AN OVERLAP OF 2-3 HOURS IS RECOMMENDED. Continue to monitor the BG hourly., Routine Rate/Dose Verify 07/10/2017 8:38 AM EST 3 Units/hr 3 mL/hr Rate/Dose Verify 07/10/2017 4:00 AM EST 3 Units/hr 3 mL/hr levothyroxine (SYNTHROID) tablet 175 mcg Given 07/14/2017 5:30 AM EST 175 mcg 175 mcg, Oral, EVERY MORNING, First dose on Wed07/06/17 at 0600, Until Discontinued, Routine Given 07/13/2017 6:15 AM EST 175 mcg Given 07/12/2017 5:21 AM EST 175 mcg lisinopril (PRINIVIL;ZESTRIL) tablet 10 mg Given 07/14/2017 9:21 AM EST 10 mg 10 mg, Oral, DAILY, First dose (after last modification) on Wed07/14/17 at 0900, Until Discontinued, Routine lisinopril (PRINIVIL;ZESTRIL) tablet 5 m g Given 07/13/2017 8:40 AM EST 5 mg 5 mg, Oral, DAILY, First dose on Wed07/12/17 at 0900, Until Discontinued, Routine Given 07/12/2017 8:27 AM EST 5 mg LORazepam (ATIVAN) tablet 0.5 mg Given 07/06/2017 10:35 AM EST 0.5 mg 0.5 mg, Oral, EVERY 6 HOURS PRN, Starting on Wed07/06/17 at 0959, Until Wed07/06/17 at 1712, Anxiety, Routine LORazepam (ATIVAN) tablet 1 mg Given 07/07/2017 4:05 AM EST 1 mg 1 mg, Oral, EVERY 6 HOURS PRN, Starting on Wed07/06/17 at 1712, Until Wed07/07/17 at 1838, Anxiety, Routine Given 07/06/2017 5:21 PM EST 1 mg magnesium hydroxide (MILK OF MAGNESIA) oral Given 07/12/2017 8:21 AM EST 10 mLs suspension 10 mL 10 mL, Oral, DAILY, First dose on Wed07/09/17 at 0900, Until Discontinued, Post-op day 2. Do not use with renal insufficiency., Routine Given 07/11/2017 11:13 AM EST 10 mLs Given 07/10/2017 10:27 AM EST 10 mLs magnesium sulfate 2 g in sterile water New Bag 07/05/2017 10:5 0 PM EST 2 g 25 mL/hr 50 mL 2 g, Intravenous, ONCE, 1 dose, On Wed07/05/17 at 2230, Administer over 120 Minutes magnesium sulfate 2 g in sterile water New Bag 07/06/2017 10:3 5 AM EST 2 g 25 mL/hr 50 mL 2 g, Intravenous, ONCE, 1 dose, On Wed07/06/17 at 1015, Administer over 120 Minutes magnesium sulfate 2 g in sterile water New Bag 07/06/2017 7:53 PM EST 2 g 25 mL/hr 50 mL 2 g, Intravenous, ONCE, 1 dose, On Wed07/06/17 at 2015, Administer over 120 Minutes meTOPROLOL (LOPRESSOR) 5 mg/5 mL injecti on 1 dose, Starting on 07/10/17 at 1045 , Until 07/10/17 at 1049, CATHRYN GUIDO (FLEX): cabinet override meTOPROLOL (LOPRESSOR) injection 2.5 mg Given 07/10/2017 10:57 AM EST 2.5 mg 2.5 mg, Intravenous, EVERY 5 MIN PRN, 2 doses, Starting on 07/10/17 at 1047, Until Wed07/10/17 at 1057, Elevated Heart Rate, for HR>120, please hold for SBP<90 or MAP<60. Given 07/10/2017 10:49 AM EST 2.5 mg meTOPROLOL (LOPRESSOR) injection 2.5 mg Given 07/10/2017 6:53 PM EST 2.5 mg 2.5 mg, Intravenous, EVERY 5 MIN PRN, 1 dose, Starting on 07/10/17 at 1845, Until 07/10/17 at 1853, Elevated Heart Rate, for HR>120, please hold for SBP<90 or MAP<60. meTOPROLOL (LOPRESSOR) injection 2.5 mg 2.5 mg, Intravenous, ONCE PRN, 1 dose, S tarting on Wed07/11/17 at 1619, Until Wed07/14/17 at 1639, Elevated Heart Rate, for HR>120, ple ase hold for SBP<90 or MAP<60. meTOPROLOL (LOPRESSOR) injection 5 mg Given 07/05/2017 5:01 PM EST 5 mg 5 mg, Intravenous, ONCE, 1 dose, On Wed07/05/17 at 1715 meTOPROLOL (LOPRESSOR) injection 5 mg Given 07/09/2017 7:15 AM EST 5 mg 5 mg, Intravenous, ONCE, 1 dose, On Wed07/09/17 at 0715 meTOPROLOL (LOPRESSOR) tablet 12.5 mg Given 07/07/2017 8:54 AM EST 12.5 mg 12.5 mg, Oral, EVERY 12 HOURS SCHEDULED (2 times per day), First dose on Wed07/06/17 at 1030, Until Discontinued, Routine Given 07/06/2017 9:01 PM EST 12.5 mg Given 07/06/2017 10:35 AM EST 12.5 mg meTOPROLOL (LOPRESSOR) tablet 12.5 mg Given 07/06/2017 5:44 PM EST 12.5 mg 12.5 mg, Oral, ONCE, 1 dose, On Wed07/06/17 at 1730, Routine meTOPROLOL (LOPRESSOR) tablet 12.5 mg Given 07/09/2017 2:56 PM EST 12.5 mg 12.5 mg, Oral, EVERY 8 HOURS SCHEDULED, First dose on Wed07/09/17 at 0930, Until Discontinued, Please hold for HR<60, SBP <90, Routine Given 07/09/2017 9:22 AM EST 12.5 mg meTOPROLOL (LOPRESSOR) tablet 12.5 mg Given 07/11/2017 7:10 AM EST 12.5 mg 12.5 mg, Oral, EVERY 12 HOURS SCHEDULED (2 times per day), First dose on 07/10/17 at 2330, Until Discontinued, Routine Given 07/10/2017 11:45 PM EST 12.5 mg meTOPROLOL (LOPRESSOR) tablet 12.5 mg Given 07/13/2017 1:11 PM EST 12.5 mg 12.5 mg, Oral, EVERY 8 HOURS SCHEDULED, First dose (after last modification) on Wed07/11/17 at 1400, Until Discontinued, Routine Given 07/13/2017 6:15 AM EST 12.5 mg Given 07/12/2017 10:01 PM EST 12.5 mg meTOPROLOL tartrate (LOPRESSOR) tablet 2 5 mg Given 07/14/2017 9:21 AM EST 25 mg 25 mg, Oral, EVERY 12 HOURS SCHEDULED (2 times per day), First dose (after last modification) on Wed07/13/17 at 2100, Until Discontinued, Routine Given 07/13/2017 8:01 PM EST 25 mg nitroGLYcerin 50 mg in Rate/Dose Change 07/05/2017 8:00 180 mcg/min 5 4 mL/hr dextrose 5% 250 mL infusion PM EST CONTINUOUS PRN, Starting on Wed07/05/17 at 1817, Until Wed07/05/17 at 1915, Cath (Intra-Procedure), Routine Rate/Dose Change 07/05/2017 6:44 PM EST 200 mcg/min 60 mL/hr Rate/Dose Change 07/05/2017 6:27 PM EST 200 mcg/min 60 mL/hr nitroGLYcerin 50 mg in Continued Bag 07/05/2017 8:20 PM 160 mcg/min 4 8 mL/hr dextrose 5% 250 mL infusion EST 0-200 mcg/min (0-60 mL/hr), Intravenous, CONTINUOUS, Starting on Wed07/05/17 at 2045, Until Wed07/06/17 at 1006, Maximum dose: 200 mcg/min, Titrate for IABP SBP<140. Start at 25 mcg/min and adjust by 25 mcg/min every 5 minutes. Do not exceed 200 mcg/min., Routine nitroGLYcerin 50 mg in Rate/Dose Verify 07/09/2017 7:30 AM 0 mcg/min 0 mL/hr dextrose 5% 250 mL infusion EST 0-200 mcg/min (0-60 mL/hr), Intravenous, CONTINUOUS, Starting on Wed07/07/17 at 1900, Until Wed07/11/17 at 1304, For hypertension. Titrate to keep systolic blood pressure less than 120 mmHg. Initiate at 25 mcg/min. Adjust by 25 mcg/min every 5 minutes. Dose not to exceed 200 mcg/minute., Routine Rate/Dose Verify 07/09/2017 7:00 AM EST 0 mcg/min 0 mL/hr New Bag 07/09/2017 5:20 AM EST 20 mcg/min 6 mL/hr nitroPRUSSide 0.2 Rate/Dose Verify 07/06/2017 2:00 PM 0.5 mcg/kg/min 12.9 mL/hr mg/mL (standard ADULT EST & Pedi greater than 20kg) infusion 0-10 mcg/kg/min ? 86 kg (0-258 mL/hr), Intravenous, CONTINUOUS, Starting on Wed07/05/17 at 2100, Until Wed07/07/17 at 1838, Titrate to keep SBP less than 120-160 mmHg by IABP. Start at 0.3 mcg/kg/min and adjust by 0.2 mcg/kg/min every 5 minutes. Do not exceed 10 mcg/kg/min. Rate/Dose Change 07/06/2017 1:00 PM EST 0.5 mcg/kg/min 12.9 mL/hr Rate/Dose Change 07/06/2017 11:00 AM EST 1 mcg/kg/min 25.8 mL/hr NORepinephrine 16 mcg/mL Rate/Dose Verify 07/09/2017 2:01 PM 2 mcg/ min 7.5 mL/hr (standard ADULT and Pedi EST greater than 20 kg) infusion 0-30 mcg/min (0-112.5 mL/hr), Intravenous, CONTINUOUS, Starting on Wed07/07/17 at 1900, Until Wed07/11/17 at 1304, Titrate to keep systolic blood pressure greater than 90 mmHg. Start at 2 mcg/minute and adjust by 2 mcg/min every 3 minutes. Dose not to exceed 30 mcg/minute. Begin if phenyleprine and/or vasopressin ineffective.Call pager # [phone] if initiated., Routine Rate/Dose Change 07/09/2017 1:24 PM EST 2 mcg/min 7.5 mL/hr Rate/Dose Change 07/09/2017 12:23 PM EST 3 mcg/min 11.3 mL/hr oxyCODONE (ROXICODONE) immediate release Given 07/10/2017 1:41 P M EST 10 mg tablet 5-15 mg 5-15 mg, Oral, EVERY 4 HOURS PRN, Starting on Wed07/09/17 at 0900, Until Wed07/14/17 at 1639, Pain, Give 5 mg 1 tab PO Q 4 hours PRN for pain >/= to 3-5/10., Give 5 mg 2 tabs PO Q 4 hours PRN for pain >/= to 6-8/10., Give 5 mg 3 tabs PO Q 4 hours PRN for pain >/= to 9-10/10. , Give PO oxycodone before IV fentanyl bolus, Call provider for new pain management orders if pain not relieved after an appropriate amount of time or if regimen is not tolerated. Hold if patient appears over sedated., Routine Given 07/10/2017 5:54 AM EST 10 mg Given 07/10/2017 1:03 AM EST 10 mg pantoprazole (PROTONIX) injection 40 mg Given 07/08/2017 8:08 AM EST 40 mg 40 mg, Intravenous, DAILY, First dose on Wed07/07/17 at 1900, Until Discontinued, Reconstitute with 10 mL of normal saline to a concentration of 4 mg/mL and infuse slowly over 2 minutes. , Routine Given 07/07/2017 9:42 PM EST 40 mg pantoprazole (PROTONIX) tablet 40 mg Given 07/14/2017 9:22 AM EST 40 mg 40 mg, Oral, DAILY, First dose on Wed07/07/17 at 1900, Until Discontinued, DO NOT CRUSH OR OPEN If unable to take PO, may give IV, Routine Given 07/13/2017 8:40 AM EST 40 mg Given 07/12/2017 8:21 AM EST 40 mg perflutren protein-A microspheres (OPTISON) Given 06/25 6:21 PM EST 0.3 mLs 0.22 mg/mL injection 0.3 mL 0.3 mL, Intravenous, ONCE PRN, 1 dose, Starting on Wed07/05/17 at 1821, Until Wed07/05/17 at 1821, for enhancement of sub-optimal echo images, Echo Lab (Intra-Procedure), Routine polyethylene glycol (MIRALAX) packet 17 g Given 07/12/2017 8:21 AM EST 17 g 17 g, Oral, DAILY, First dose on Wed07/11/17 at 1800, Until Discontinued, Routine Given 07/11/2017 6:28 PM EST 17 g potassium chloride (K-DUR/KLOR-CON) extended Given 1:33 AM EST 20 mEq release tablet 20 mEq 20 mEq, Oral, EVERY 4 HOURS PRN, Starting on Wed07/05/17 at 2209, Until Wed07/07/17 at 1838, hypokalemia, Administer for serum potassium (mMol/L) of 3.9 - 4 See instructions for Potassium Protocol in online policies., Routine Given 07/06/2017 4:47 AM EST 20 mEq potassium chloride (K-DUR/KLOR-CON) extended Given 8:27 AM EST 20 mEq release tablet 20 mEq 20 mEq, Oral, ONCE, 1 dose, On Wed07/12/17 at 0845, Routine potassium chloride (K-DUR/KLOR-CON) extended Given 9:22 AM EST 20 mEq release tablet 20 mEq 20 mEq, Oral, DAILY, First dose on Wed07/12/17 at 1015, Until Discontinued, Routine Given 07/13/2017 8:41 AM EST 20 mEq Given 07/12/2017 10:03 AM EST 20 mEq potassium chloride (K-DUR/KLOR-CON) extended Given 05/2017 10:48 PM EST 40 mEq release tablet 40 mEq 40 mEq, Oral, EVERY 4 HOURS PRN, Starting on Wed07/05/17 at 2209, Until Wed07/07/17 at 1838, hypokalemia, Administer for serum potassium (mMol/L) of 3.6 - 3.8 See instructions for Potassium Protocol in online policies., Routine potassium chloride (K-DUR/KLOR-CON) extended Given 8:41 AM EST 40 mEq release tablet 40 mEq 40 mEq, Oral, ONCE, 1 dose, On Tu07/13/17 at 0745, 20 mEq tablet may be dissolved in water for administration, Routine potassium chloride 20 mEq in 100 mL New Bag 07/08/2017 1:04 AM EST 20 mEq 100 mL/hr 20 mEq, Intravenous, EVERY 1 HOUR PRN, Starting on Wed07/07/17 at 1838, Until Wed07/11/17 at 1304, Administer over 60 Minutes, hypokalemia, Administer 3 doses for a serum potassium (mMol/L) of 2.8 - 3.2 See instructions for Potassium Protocol in [facility] online policies. propofol (DIPRIVAN) Rate/Dose Change 07/08/2017 4:03 PM 25 mcg/kg/m in 12.3 mL/hr infusion EST 0-75 mcg/kg/min ? 82.2 kg (0-36.99 mL/hr, rounded to 0-37 mL/hr), Intravenous, CONTINUOUS, Starting on Wed07/07/17 at 1900, Until Wed07/09/17 at 1513, Titrate to sedation level of RASS Goal (-) 1. Start at 10 mcg/kg/min, adjust rate by 5 mcg/kg/min every 3 minutes. Dose not to exceed 50 mcg/kg/minute. Discontinue upon extubation., Routine Rate/Dose Verify 07/08/2017 4:00 PM EST 75 mcg/kg/min 37 mL/hr Rate/Dose Verify 07/08/2017 2:00 PM EST 75 mcg/kg/min 37 mL/hr senna-docusate (PERICOLACE) 8.6-50 mg per Given 2016 8:20 PM EST 2 tablets tablet 2 tablet 2 tablet, Oral, DAILY, First dose on Ivis 07/08/17 at 2100, Until Discontinued, Post-op day 1, Routine Given 07/11/2017 8:33 PM EST 2 tablets Given 07/10/2017 9:05 PM EST 2 tablets sodium bicarbonate 1 mEq/mL (8.4 %) IV Given 07/07/2017 10:23 PM EST 50 mEq solution 50 mEq 50 mEq, Intravenous, ONCE, 1 dose, On Wed07/07/17 at 2230, Warning Vesicant/Irritant Medication , Routine sodium chloride 0.9 % flush 5 mL Given 07/07/2017 8:54 AM EST 5 mLs 5 mL, Intravenous, 2 TIMES DAILY, First dose on 07/05/17 at 2100, Until Discontinued, Routine Given 07/06/2017 9:00 PM EST 5 mLs Given 07/06/2017 10:37 AM EST 5 mLs sodium chloride 0.9 % flush 5 mL Given 07/14/2017 5:32 AM EST 5 mLs 5 mL, Intravenous, EVERY 8 HOURS, First dose on Wed07/11/17 at 1330, Until Discontinued, Routine Given 07/13/2017 8:04 PM EST 5 mLs Given 07/13/2017 6:15 AM EST 5 mLs sodium chloride 0.9% Rate/Dose Verify 07/08/2017 6:00 AM 100 mL/hr 1 00 mL/hr infusion EST 0-500 mL/hr, Intravenous, CONTINUOUS, Starting on Wed07/07/17 at 1900, Until Wed07/09/17 at 1859, Bolus 250 mL every 5 minutes as needed for volume replacement to maintain cardiac index greater than or equal to 2.0 L/min/M2. Maximum volume 2 L. Call greenhouse laborer for additional fluid orders: pager #[phone]. Rate/Dose Verify 07/08/2017 4:00 AM EST 100 mL/hr 100 mL/hr Rate/Dose Verify 07/08/2017 2:00 AM EST 100 mL/hr 100 mL/hr sodium chloride 0.9% Rate/Dose Verify 07/09/2017 8:00 AM 30 mL/hr 3 0 mL/hr infusion EST 10-30 mL/hr, Intravenous, DAILY PRN, Starting on Wed07/07/17 at 1839, Until Wed07/11/17 at 1304, Side port TKO rate, per [facility] nursing protocol. Rate/Dose Verify 07/09/2017 6:00 AM EST 30 mL/hr 30 mL/hr Rate/Dose Verify 07/09/2017 4:00 AM EST 30 mL/hr 30 mL/hr sodium chloride 0.9% Rate/Dose Verify 07/11/2017 10:00 AM 20 mL/hr 20 mL/hr infusion EST 10-30 mL/hr, Intravenous, DAILY PRN, Starting on Wed07/07/17 at 1839, Until Wed07/11/17 at 1304, Side port TKO rate, per [facility] nrusing protocol. Rate/Dose Change 07/11/2017 8:00 AM EST 20 mL/hr 20 mL/hr Rate/Dose Verify 07/11/2017 6:00 AM EST 10 mL/hr 10 mL/hr warfarin (COUMADIN) daily order reminder Oral, EVERY 24 HOURS, First dose on Wed07/12/17 at 1400, Until Discontinued, If the daily warfarin order has not been pl aced, contact the Provider to confirm that the order will be written, the dose is held or discont inued. warfarin (COUMADIN) tablet 2.5 mg Given 07/13/2017 5:38 PM EST 2.5 mg 2.5 mg, Oral, ONCE, 1 dose, On Wed07/13/17 at 1700, Routine warfarin (COUMADIN) tablet 2.5 mg 2.5 mg, Oral, ONCE, 1 dose, On Wed07/14/17 at 1700, R outine warfarin (COUMADIN) tablet 5 mg Given 07/11/2017 4:14 PM EST 5 mg 5 mg, Oral, ONCE, 1 dose, On Wed07/11/17 at 1700, Routine warfarin (COUMADIN) tablet 5 mg Given 07/12/2017 4:11 PM EST 5 mg 5 mg, Oral, ONCE, 1 dose, On Wed07/12/17 at 1700, Routine documented in this encounter Active and Recently Administered Medications Times are shown in EST. Scheduled Medication Order 07/12/2017 07/13/2017 07/14/2017 AMIOdarone (CORDARONE; PACERONE) tablet 400 mg 0841 (Given - Provider: Em Jones RN) 0922 (Given - Provider: Myrna triplett, VAMSI) 400 mg, Oral, DAILY, First dose on Wed09/13/16 at 0745, Until Discontinued, Routine aspirin chewable tablet 81 mg(Linked Group 1) 0821 (Gi cody - Provider: More Luther RN) 0841 (Given - Provider: Em Jones RN)0900 (See Alternative - Provider: Em Jones RN) 0922 (Given - Provider: Myrna triplett, VAMSI) 81 mg, Oral, DAILY, First dose on Wed at 1900, Until Discontinued, Start on post-op day 1 in the AM., Routine aspirin suppository 300 mg(Linked Group 1) 0821 (See A lternative - Provider: More Luther RN) 0841 (See Alternative - Provider: George Jones RN)0900 (Not Given - Provider: Em Jones RN - Reason: Contraindicated) 0922 (See Alternative - Provider: Myrna Young RN) 300 mg, Rectal, DAILY, First dose on Wed07/07/17 at 1900, Until Discontinued, Start on post-op day 1 in the AM Give MD if unable to take PO, Routine atorvastatin (LIPITOR) tablet 40 mg 1611 (Given - Prov ider: More Luther RN) 1738 (Given - Provider: Em Jones RN) 40 mg, Oral, EVERY EVENING, First dose o n Wed07/09/17 at 1700, Until Discontinued, Routine ceFAZolin (ANCEF) 2g in dextrose 5% 100 mL 1756 (New B ag - Provider: Yanet Valdovinos RN)1826 (Stopped - Provider: More Luther RN) 0125 (New Bag - Provider: Ale Rangel, VAMSI)0155 (Stopped - Provider: Ale Rangel RN)0901 (New Bag - Provider: Em Jones RN)0931 (Stopped - Provider: Em Jones RN)1738 (New Bag - Provider: Em Jones RN) 0143 (New Bag - Provider: Denice Jacobson, VAMSI)0213 (Stopped - Provider: Denice Jacobson, VAMSI)0932 (New Bag - Provider: Myrna Young RN)1002 (Stopped - Provider: Myrna Young RN) 2 g, Intravenous, EVERY 8 HOURS, First d ose on Wed07/12/17 at 1800, Until Discontinued, Administer over 30 Minutes, Indication for (Active or Suspected): Skin/Skin Structure 1808 (Stopped - Provider: Em richter RN) furosemide (LASIX) tablet 20 mg (CANCELED) 0821 (Given - Provider: More Luther RN) 20 mg, Oral, DAILY, First dose on Wed at 1600, Until Discontinued, Routine furosemide (LASIX) tablet 20 mg (COMPLETED) 1003 (Give n - Provider: More Luther RN) 20 mg, Oral, ONCE, 1 dose, Wed07/12/17 at 1015, Routine furosemide (LASIX) tablet 20 mg 20 mg, Oral, DAILY, First dose on Wed at 0900, Until Discontinued, Routine furosemide (LASIX) tablet 40 mg 0840 (Given - Pr ovider: Em Jones, RN) 0922 (Given - Provider: Myrna Young RN) 40 mg, Oral, DAILY, 7 doses, First dose on Wed07/13/17 at 0900, Last dose on Wed07/19/17 at 0900, Routine hyaluronidase (ovine) (VITRASE) injection 1-10 mL (COMPLETED ) 0700 (Given - Provider: Portillo Jones RN - Comment: five ennly apaced injections throughout affected area, 0.2 ml each) 1-10 mL, Subcutaneous, ONCE, 1 dose, Wed07/13/17 at 0645, Hyaluronidase is supplied in a 1-mL vial at a concentration of 200 units/mL. Dilute with 9 mL of normal saline. This yields the desired concent ration of 20 units/mL. Draw up 1 mL incr ements of the diluted solution into a 1- mL syringe with a 26-g needle. Instill 0.2 -mL aliquots of the solution at least every 2 - 3 centimeters or five evenly sp aced aliquots subcutaneously around the periphery of the infiltrated area. Use a new 26-gauge needle for each injection. This is best done within one hour of the extravasation. Discard the remaining solution. , STAT hyaluronidase (ovine) (VITRASE) injection 1-10 mL (COMPLETED ) 0755 (Given - Provider: Portillo Jones RN - Comment: 10 evenly spaced injections throughout affected area -.2 ml each injection) 1-10 mL, Subcutaneous, ONCE, 1 dose, Wed07/13/17 at 0745, Hyaluronidase is supplied in a 1-mL vial at a concentration of 200 units/mL. Dilute with 9 mL of normal saline. This yields the desired concent ration of 20 units/mL. Draw up 1 mL incr ements of the diluted solution into a 1- mL syringe with a 26-g needle. Instill 0.2 -mL aliquots of the solution at least every 2 - 3 centimeters or five evenly sp aced aliquots subcutaneously around the periphery of the infiltrated area. Use a new 26-gauge needle for each injection. This is best done within one hour of the extravasation. Discard the remaining solution. , STAT insulin glargine VIAL injection 50 Units 0929 (Given - Provider: Myrna Young RN) 50 Units, Subcutaneous, EVERY 24 HOURS, First dose on Wed07/14/17 at 1000, Until Discontinued, Routine insulin glargine VIAL injection 65 Units (CANCELED) 10 03 (Given - Provider: More Luther RN) 0901 (Given - Provider: Em Jones, VAMSI) 65 Units, Subcutaneous, EVERY 24 HOURS, First dose on Wed07/11/17 at 1000, Until Discontinued, Routine insulin lispro (humaLOG) VIAL injection 0-10 Units 1836 (Given - Provider: Em Jones RN - Comment: ate chocolate ice cream/pears late - poor appetite) 0928 (Given - Provider: Myrna triplett RN)1200 (Not Given - Provider: Myrna Young RN - Reason: Patient/family refused) 0-10 Units, Subcutaneous, 3 TIMES DAILY WITH MEALS, First dose on Wed07/13/17 at 1700, Until Discontinued, MEAL ASSOCIATED Give 1 unit for every 8 grams carbohydrate. Hold if not eating or if BS <90, Routine insulin lispro (humaLOG) VIAL injection 0-12 Units(Alix ked Group 2) 0000 (Not Given - Provider: Carmen Berry RN - Reason: Order parameters not met)0400 (Not Given - Provider: Carmen Berry RN - Reason: Order parameters not met)0800 (Not Given - Provider: More Luther RN - Reason: Contraindicated) 0000 (Not Given - Provider: lAe morris RN - Reason: Order parameters not met)0400 (Not Given - Provider: Ale Rangel RN - Reason: Order parameters not met) 0000 (Not Given - Provider: Denice contreras RN - Reason: Order parameters not met - Comment: BG 132)0400 (Not Given - Provider: Denice Jacobson RN - Reason: Order parameters not met - Comment: BG 115) 0-12 Units, Subcutaneous, EVERY 4 HOURS SCHEDULED, First dose on 07/10/17 at 0930, Until Discontinued, CORRECTION BOLUS to start when insulin drip discontinued Custom scale BG 140 - 160 Give 1 u 1137 (Given - Provider: More Luther RN - Comment: 164)1600 (Not Given - Provider: More Luther RN - Reason: Contraindicated)2020 (Not Given - Provider: Ale Rangel RN - Reason: Order parameters not met) 0800 (Not Given - Provider: Em joe RN - Reason: Order parameters not met)1307 (Given - Provider: Em Jones, VAMSI)1600 (Not Given - Provider: Em Jones RN - Reason: Order parameters not met) 0800 (Not Given - Provider: Myrna mendoza RN - Reason: Order parameters not met)1215 (Given - Provider: Myrna Young RN) nit BG 161 - 180 Give 2 units BG 181 - 2 00 Give 4 units BG 201 - 220 Give 6 units BG 221 - 240 Give 9 units BG greater than 240, give 12 units and recheck BG in 2 hours. If BG remains greater than 240, 2000 (N ot Given - Provider: Denice Jacobson RN - Reason: Order parameters not met - Comment: BG 121) repeat 12 units (no more than three time s) & call for new basal insulin orders. If less than 240 after two hours, give no insulin and resume prior schedule., Routine insulin lispro (humaLOG) VIAL injection 0-20 Units (CA NCELED) 0830 (Given - Provider: More Luther RN)1259 (Given - Provider: More Luther RN)1757 (Given - Provider: Yanet Valdovinos, VAMSI) 0842 (Given - Provider: Em Jones, VAMSI)1307 (Given - Provider: Em Jones RN) 0-20 Units, Subcutaneous, 3 TIMES DAILY WITH MEALS, First dose on 07/10/17 at 1200, Until Discontinued, MEAL ASSOCIATED Give 1 unit for every 5 grams carbohydrate. Hold if not eating or if BS <90, Routine levothyroxine (SYNTHROID) tablet 175 mcg 0521 (Given - Provider: Carmen Berry RN) 0615 (Given - Provider: Ale Rangel, RN) 0530 (Gi cody - Provider: Denice Jacobson RN) 175 mcg, Oral, EVERY MORNING, First dose on Wed07/06/17 at 0600, Until Discontinued, Routine lisinopril (PRINIVIL;ZESTRIL) tablet 10 mg 09 (Given - Provider: Myrna Young RN) 10 mg, Oral, DAILY, First dose on Wed at 0900, Until Discontinued, Routine lisinopril (PRINIVIL;ZESTRIL) tablet 5 mg (CANCELED) 0 827 (Given - Provider: More Luther RN) 0840 (Given - Provider: Em Jones RN) 5 mg, Oral, DAILY, First dose on Wed at 0900, Until Discontinued, Routine magnesium hydroxide (MILK OF MAGNESIA) oral suspension 10 mL 0821 (Given - Provider: More Luther RN) 09 (Not Given - Provider: Em joe RN - Reason: Patient/family refused) 0900 (Not Given - Provider: Myrna Young RN - Reason: Patient/family refused) 10 mL, Oral, DAILY, First dose on Wed at 0900, Until Discontinued, Post-op day 2. Do not use with renal insufficiency., Routine meTOPROLOL (LOPRESSOR) tablet 12.5 mg (CANCELED) 0521 (Given - Provider: Carmen Berry RN)1338 (Given - Provider: More Luther RN)2201 (Given - Provider: Ale Rangel, VAMSI) 0615 (Given - Provider: Ale Rangel , RN)1311 (Given - Provider: Em Jones RN) 12.5 mg, Oral, EVERY 8 HOURS SCHEDULED, First dose on Wed07/11/17 at 1400, Until Discontinued, Routine meTOPROLOL tartrate (LOPRESSOR) tablet 25 mg 2000 (Given - Provider: Denice Jacobson, VAMSI) 920 (Given - Provider: Myrna triplett RN) 25 mg, Oral, EVERY 12 HOURS SCHEDULED (2 times per day), First dose on Wed07/13/17 at 2100, Until Discontinued, Routine pantoprazole (PROTONIX) injection 40 mg(Linked Group 3 ) 0821 (See Alternative - Provider: More Luther RN) 0840 (See Alternative - Provider: George Jones RN)0900 (Not Given - Provider: Em Jones RN - Reason: Contraindicated) 0922 (See Alternative - Provider: Zac Young RN) 40 mg, Intravenous, DAILY, First dose on Wed07/07/17 at 1900, Until Discontinued, Reconstitute with 10 mL of normal saline to a concentration of 4 mg/mL and infuse slowly over 2 minutes. , Routine pantoprazole (PROTONIX) tablet 40 mg(Linked Group 3) 0 821 (Given - Provider: More Luther RN) 0840 (Given - Provider: Em Jones RN)0900 (See Alternative - Provider: Em Jones RN) 0922 (Given - Provider: Myrna Young RN) 40 mg, Oral, DAILY, First dose on Wed at 1900, Until Discontinued, DO NOT CRUSH OR OPEN If unable to take PO, may give IV, Routine polyethylene glycol (MIRALAX) packet 17 g 0821 (Given - Provider: More Luther RN) 0900 (Not Given - Provider: Em joe RN - Reason: Patient/family refused) 0900 (Not Given - Provider: Myrna mendoza RN - Reason: Patient/family refused) 17 g, Oral, DAILY, First dose on Wed at 1800, Until Discontinued, Routine potassium chloride (K-DUR/KLOR-CON) extended release t ablet 20 mEq (COMPLETED) 0827 (Given - Provider: More Luther RN) 20 mEq, Oral, ONCE, 1 dose, Wed07/12/17 at 0845, Routine potassium chloride (K-DUR/KLOR-CON) extended release t ablet 20 mEq 1003 (Given - Provider: More Luther RN) 0841 (Given - Provider: Em Jones RN) 0922 (Given - Provider: Myrna Young, RN) 20 mEq, Oral, DAILY, First dose on Wed09/12/16 at 1015, Until Discontinued, Routine potassium chloride (K-DUR/KLOR-CON) extended release tablet 40 mEq (COMPLETED) 0841 (Given - Provider: Em Jones, RN) 40 mEq, Oral, ONCE, 1 dose, Wed07/13/17 at 0745, 20 mEq tablet may be dissolved in water for administration, Routine senna-docusate (PERICOLACE) 8.6-50 mg per tablet 2 tab let 2019 (Given - Provider: Ale Rangel, VAMSI) 2099 (Not Given - Provider: Denice contreras RN - Reason: Patient/family refused) 2 tablet, Oral, DAILY, First dose on Ivis 07/08/17 at 2100, Until Discontinued, Post-op day 1, Routine sodium chloride 0.9 % flush 5 mL 0530 (Not Given - Pro vider: Carmen Berry RN - Reason: See comment - Comment: given during assessment)1330 (Not Given - Provider: More Luther RN - Reason: Contraindicated - Comment: IV meds running) 0615 (Given - Provider: Ale Rangel RN)1330 (Not Given - Provider: Em Jones RN - Reason: Contraindicated)2003 (Given - Provider: Denice Jacobson RN) 0532 (Given - Provider: Denice Jacobson RN)1330 (Not Given - Provider: Myrna Young RN - Reason: Patient/family refused) 5 mL, Intravenous, EVERY 8 HOURS, First dose on Wed07/11/17 at 1330, Until Discontinued, Routine 2200 (Given - Provider: Ale Rangel, VAMSI) 0 (No t Given - Provider: Denice Jacobson RN - Reason: See comment - Comment: Given earlier in shift, see previous documentation) warfarin (COUMADIN) daily order reminder 1400 (Dose co nfirmed - Provider: More Luther RN) 1400 (Dose confirmed - Provider: Em Jones RN) 1400 (Dose confirmed - Provider: Myrna Young RN - Comment: on DC) Oral, EVERY 24 HOURS, First dose on Wed07/12/17 at 1400, If the daily warfarin order has not been placed, contact the Provider to confirm that the order will be written, the dose is held or discontinued. warfarin (COUMADIN) tablet 2.5 mg (COMPLETED) 173 (Given - Provider: Em Jones, RN) 2.5 mg, Oral, ONCE, 1 dose, Wed07/13/17 at 1700, Routine warfarin (COUMADIN) tablet 2.5 mg 2.5 mg, Oral, ONCE, 1 dose, Wed07/14/17 at 1700, Routine warfarin (COUMADIN) tablet 5 mg (COMPLETED) 1611 (Give n - Provider: More Luther RN) 5 mg, Oral, ONCE, 1 dose, Wed07/12/17 at 1700, Routine Continuous Medication Order 07/12/2017 07/13/2017 07/14/2017 AMIOdarone (CORDARONE) 360 mg in dextrose 5% 200 mL in fusion () 0817 (New Bag - Provider: More Luther RN)1200 (Rate/Dose Change - Provider: More Luther RN)1951 (Rate/Dose Change - Provider: Elba Valverde RN - Comment: dose running at 0.5 at beginning of shift) 0721 (Stopped - Provider: Portillo Jones RN - Comment: iv ifiltrated =, see [facility] access notes) 1 mg/min (33.3333 mL/hr, rounded to 33.3 mL/hr), at 33.3 mL/hr, Intravenous, CONTINUOUS, Starting 07/11/17 at 0900, Until Wed07/13/17 at 1000, 1mg/min for 6hrs, then 0.5mg/min for 18hrs. After 2017 (New Bag - Provider: Ale Rangel, VAMSI) t 24hours, order maintenance dose 0.5 mg/min. Use in-line filter . PRN Medication Order 07/12/2017 07/13/2017 07/14/2017 acetaminophen (TYLENOL) tablet 1,000 mg 0544 (Given - Provider: Carmen Berry, VAMSI) 1,000 mg, Oral, EVERY 6 HOURS PRN, Start ing Wed07/09/17 at 1509, Until Wed07/14/17 at 1639, Pain, Maximum dose of acetaminophen is 4000 mg from all sources in 24 hours., Routine bisacodyl (DULCOLAX) suppository 10 mg 10 mg, Rectal, DAILY PRN, Starting Sat 1 09/10/16 at 0000, Until Wed07/14/17 at 1639, Constipation, Starting post-op day 3., Routine dextrose 50% IV syringe 25-50 mL 25-50 mL (12.5-25 g), Intravenous, PER I NSULIN PROTOCOL, Starting Wed07/07/17 at 1839, Until Wed07/14/17 at 1639, Low blood sugar, For BG 50 - 70: If patient can drink, 120 mL Juice or Regular (not diet) soda OR if patient cannot drink, 1 2.5 gram (25 mL) Dextrose 50% IV. Recheck BG in 30 minutes. May repeat juice or dextrose once per episode For BG less than 50: If patient can drink, 240 mL Ju ice or Regular (not diet) soda OR if pat ient cannot drink, 25 grams (50 mL) Dextrose 50% IV. Recheck BG in 30 minutes. May repeat juice or dextrose once per episode. To avoid extravasation, push Dex trose 50% SLOWLY (3 mL over 1 minute) in a patent, running IV, preferably a central line. For persistent hypoglycemia, consider longer-acting treatment for the duration of the active insulin., Routine meTOPROLOL (LOPRESSOR) injection 2.5 mg 2.5 mg, Intravenous, ONCE PRN, 1 dose, S tarting Wed07/11/17 at 1619, Until Wed07/14/17 at 1639, Elevated Heart Rate, for HR>120, please hold for SBP<90 or MAP<60. ondansetron (ZOFRAN) injection 4 mg 4 mg, Intravenous, EVERY 8 HOURS PRN, St arting Wed07/07/17 at 1839, Until Wed07/14/17 at 1639, Nausea oxyCODONE (ROXICODONE) immediate release tablet 5-15 mg 5-15 mg, Oral, EVERY 4 HOURS PRN, Starti ng Wed07/09/17 at 0900, Until Wed07/14/17 at 1639, Pain, Give 5 mg 1 tab PO Q 4 hours PRN for pain >/= to 3- 5/10., Give 5 mg 2 tabs PO Q 4 hours PRN for pain >/= to 6-8/10., Give 5 mg 3 tabs PO Q 4 hours PRN for pain >/= to 9-10/10. , Give PO oxycodone before IV fentanyl bolus, Call provider for new pain management orders if pain not relieved after an appropriate amount of time or if regime n is not tolerated. Hold if patient appears over sedated., Routine Linked Groups Order Group 1: aspirin chewable tablet 81 mgJump to med 81 mg, Oral, DAILY, First dose on Wed at 1900, Until Discontinued
Start on post-op day 1 in the AM.
Routine Or aspirin suppository 300 mgJump to med 300 mg, Rectal, DAILY, First dose on Wed07/07/17 at 1900, Until Discontinued
Start on post-op day 1 in the AM Give MD if unable to take PO
Routine Group 2: POCT Fingerstick Glucose (CANCELED) Routine, EVERY 4 HOURS, First occurrence on 07/10/17 at 1200, Until Specified
Consider choosing EVERY 4 HOURS as frequency for: - Type 1 Diabetes - At least 24 hours after coming off an ins ulin drip - At least 24 hours after admi ssion for DKA - Hypoglycemia unawareness - Patients who are otherwise unstable Select the same frequency for the correction bolus insulin order And insulin lispro (humaLOG) VIAL injection 0-12 UnitsJump to med 0-12 Units, Subcutaneous, EVERY 4 HOURS SCHEDULED, First dose on 07/10/17 at 0930, Until Discontinued
CORRECTION BOLUS to start when insulin drip discontinued Custom scale&amp ;nbsp; BG 140 - 160 &nbs p;Give 1 unit BG 161 - 180 Give 2 units BG 181 - 200 Give 4 units BG 201 - 220 Give 6 units B G 221 - 240 Give 9 units&nbsp ; BG greater than 240, give 12 units and recheck BG in 2 hours. If BG remains greater than 240, repeat 12 units (no more than three times) & call for new basal insulin ord ers. If less than 240 after two hours, give no insulin and resume prior schedule.
Routine Group 3: pantoprazole (PROTONIX) tablet 40 mgJump to med 40 mg, Oral, DAILY, First dose on Wed at 1900, Until Discontinued
DO NOT CRUSH OR OPEN If unable to take PO, may give IV
Routine Or pantoprazole (PROTONIX) injection 40 mgJump to med 40 mg, Intravenous, DAILY, First dose on Wed07/07/17 at 1900, Until Discontinued
Reconstitute with 10 mL of normal saline to a concentration of 4 mg/mL and infuse slowly over 2 minutes.
Routine documented in this encounter Care Teams Executive Account Manager Relationship Specialty Start Date End Date Lovely Vicente MD PCP - General 04/16/[address] [place] [address] [address] [place] [address] documented as of this encounter
--- OUTSIDE RECORDS SUMMARY | 2022-02-06 13:39 | XMS_ITS | Encounter Summary ---
:1945 Author Organization [facility] Address [facility] [place] [address] Care Team Providers Name Role Phone Lovely Vicente MD Primary Care Provider Reason for Visit Auth/Cert Specialty Diagnoses / Procedures Referred By Contact Refer red To Contact Diagnoses STEMI (ST elevation myocardial infarction) NSTEMI STEMI Procedures CARDIAC CATHETERIZATION NAYE IPI Referral ID Status Reason Start Date Expiration Date Visits Requ ested Visits Authorized [id number] 1 1 Encounter Details Date Type Department Care Team Description 07/07/2017 Surgery Main Operating Room Yuan Webber, @ CABG, USING ARTERIAL Barbara Ocampo MD GRAFT;SINGLE ARTERIAL Hospital [facility] GRAFT (WRVU 33.75) [facility] [place] [address] SURGERY [phone] [place], [place] [address] (Wo rk) Social History Tobacco [...] documented in this encounter Discharge Summaries Martha Teague, INTEGRATION MANAGER - 07/14/2017 9:38 AM EST Inpatient - Discharge Summary Patient Name: Gregory Hoang Patient Age: 72 y.o. Birthdate: 1945 Language: Albanian Race: White Ethnicity: Not nor Admit Date: [...] , @ 1:20p Patient to follow-up with Tire Builder Operator/heart failure team in one week. An appointment will be made for you. You may call [phone] Patient to follow-up with Cardiac Surgery, Dr. Yuan Webber, in ~ 4 weeks with CXR, EKG. Inpatient Provider Contact Information: [facility] Section of Cardiac Surgery [facility] [address] FAX [phone] Discharge Diagnoses (Hospital Problems) Primary Diagnoses: CAD [...] SETUP performed by Manny Mcknight MD at [facility] OR ??? PRO CABG, ARTERIAL, SINGLE N/A 07/07/2017 @CABG, USING ARTERIAL GRAFT;SINGLE ARTERIAL GRAFT (WRVU 33.75) performed by Yuan Webber MD at [facility] OR ??? PRO CABG, ARTERY-VEIN, TWO N/A 07/07/2017 @CABG, TWO VENOUS GRAFTS & ARTERIAL GRAFT (WRVU 7.93) performed by Yuan Webber MD at [facility] OR ??? PRO COLONOSCOPY, REMV LESN, SNARE 01/16/2014 COLONOSCOPY, POLYPECTOMY, REMOVAL LESION BY SNARE performed by Nohemi Jaimes MD at [facility] ENDOSCOPY ??? PRO ENDOSCOPY W/VIDEO-ASST VEIN HARVEST, CABG Right 07/07/2017 ENDOSCOPIC HARVEST VEIN(S) FOR CABG (WRVU 0.31) performed by Yuan Webber MD at [facility] OR ??? PRO THYROIDECTOMY 03/28/2013 THYROIDECTOMY, TOTAL OR COMPLETE performed by Manny Mcknight MD at [facility] OR Prior To Admission Medications Prescriptions Prior to Admission Medication Sig Dispense Refill Last Dose ??? levothyroxine (SYNTHROID) 175 mcg Tablet Take 1 tablet by mouth daily. 90 tablet 3 07/05/2017 [id number] ??? ascorbic acid, vitamin C, (VITAMIN C) [...] hospital and ruled infor non-ST segment elevation [place]. This almost certainly represents the residual of [...] Hospital Course: Gregory Hoang was admitted to [facility] on 07/05/2017 via the Cardiology Service. During his hospital course, he was taken emergently to the cath lab technologist for an ongoing STEMI. An IABP was [...] not take or discontinue any prescription or svpk-jxs-fmwbxri medications without asking your doctor or pharmacist [...] day to have your insulin doses adjusted. [facility] Endocrine clinic office Discharge Instructions: Call your doctor if: You have a fever of greater than 101 degrees, shaking chills, if you develop redness or drainage from your incision sites, or if you have questions. Please call your surgeon's office if you have any discharge or drainage from your chest incision. Your surgeon, Dr. Yuan Webber and/or the Cardiac Surgery Physician Wood Flooring Specialist Team may be reached at . Weight: [...] Dr. Yuan Webber. You may use a [place] Track or treadmill but avoid any pulling [...] friends, go to a movie, go to muslim, etc. Heavy activities: No hunting, skiing, jogging, snow shoveling, snowmobiling, lawn mowing, swimming, golf or tennis until after your return appointment with the surgeon. Do not ride motorcycles, [employer]'s tractors or horses. Avoid the use of [...] should resume a low fat, low cholesterol, [place] Heart Association Diet/Diabetic diet. Driving: No driving [...] , @ 1:20p Patient to follow-up with Tire Builder Operator/heart failure team in one week. Appointment will be made for you. You may call [phone] Patient to follow-up with Cardiac Surgery, Dr. Yuan Webber, in ~ 4 weeks with CXR, EKG. Cardiac Rehabilitation: Gregory Hoang was seen today regarding participation in the outpatient Phase 2 Cardiac Rehabilitation at [facility]. The patient agrees to a referral to this program. The referral will be sent at discharge and the patient should be contacted by the Program within 1- 2 weeks from discharge. ?? Future Appointments and Orders Future Appointments Provider Department Dept Phone 09/07/2017 3:00 PM LAB, THREE L Lab 3L [facility] [phone] 09/07/2017 4:00 PM Luz Prescott MD Endocrinology at [facility] [phone] Future Orders Complete By Expires EKG 12 Lead [EKG1 Custom] 08/14/2017 02/13/2018 Process Instructions: Scheduling Instructions: Questions: Which [facility] location will this be performed?: [facility] Is a rhythm strip needed?: No If EKG Reason is Pre-op Evaluation, indicate diagnosis for surgery.: XR Chest PA & Lateral (Generic) [50020 [id number] Custom] 08/14/2017 02/13/2018 Process Instructions: Scheduling Instructions: Questions: Where will study be performed?: [facility] Portable exam?: Reason for exam and clinical history: CABG x 3 Other pertinent information: Stat read required?: Date of injury if applicable: Requested Time: Referral to Cardiac Rehab [BGQ583 Custom] As directed Process Instructions: If no progress note charted, please enter Clinical details in comments. Scheduling Instructions: Questions: My question or request is: s/p CABG. Cardiac rehab at [facility] Referral to Home Health - at DISCHARGE [XKE7359 CPT(R)] As directed Process Instructions: Scheduling Instructions: Comments: DOCUMENTATION FOR VNA SERVICES (INCLUDING THOSE PATIENTS WITH MEDICARE COVERAGE REQUIRING HOME VNA SERVICES AND/OR HOSPICE SERVICES) PATIENT'S LOCATION: Gregory Hoang [address] [place] [address] [place] [phone] (home) Telephone Information: Senior Portfolio Manager's Name: self In discussion with the attending physician, it is certified that this patient is under their care and that they, or a Nurse Practitioner, or Physician Wood Flooring Specialist who is working directly with them, had [...] HEALTH AGENCY: [facility] ([facility] [place] [facility]-is in [place], [place]) PHONE: [phone] FAX: [phone] RN orders: Cardiopulmonary assessment, incisional assessment, assess vital signs, assessment of rehab progress, medication management and effectiveness, home safety evaluation. Please draw INR if indicated and send result to:Dr Vicente [phone] PT ORDERS: Continue rehab for endurance, gait stability and strength with mobility and transfers. Home safety evaluation. Home exercise program if appropriate. Start of Care Date:24-48 hours after discharge SPECIAL INSTRUCTIONS: For any follow up questions, needs, or issues please call the Cardiac Surgery Office at [phone] FOR MEDICARE ONLY: (please delete this section [...] noted. Questions: Agency name [facility] contact information[facility] Patient location post discharge: home What services are requested: Registered Nurse Physical Therapy Start date: Responsible MD post discharge contact info: PCP Arrangements for VNA/home care: As above. VN RN OR PCP TO PLEASE REMOVE CHEST TUBE SUTURES ON OR AFTER 07/17/2017 Signed: Martha Teague APRN [facility] Section of Cardiac Surgery [facility] [address] FAX [phone] Date: 07/14/2017 CC: MD Ivania Cr Betsy, PA [address] [place] [id number] documented in this encounter Discharge Instructions Discharge InstructionsKathie Carrera APRN - 07/14/2017 11:24 AM EST Diabetes and [...] day to have your insulin doses adjusted. [facility] Endocrine clinic office Patient InstructionsStMartha mcdonald APRN [...] not take or discontinue any prescription or tucb-rsf-zwxxrus medications without asking your doctor or pharmacist [...] day to have your insulin doses adjusted. [facility] Endocrine clinic office ? Discharge Instructions: ?? Call your doctor if: You have a fever of greater than 101 degrees, shaking chills, if you develop redness or drainage from your incision sites, or if you have questions. Please call your surgeon's office if you have any discharge or drainage from your chest incision. Your surgeon, Dr. Yuan Webber and/or the Cardiac Surgery Physician Wood Flooring Specialist Team may be reached at . ?? [...] Dr. Yuan Webber. You may use a [place] Track or treadmill but avoid any pulling [...] friends, go to a movie, go to muslim, etc. ?? Heavy activities: No hunting, skiing, jogging, snow shoveling, snowmobiling, lawn mowing, swimming, golf or tennis until after your return appointment with the surgeon. Do not ride motorcycles, [employer]'s tractors or horses. Avoid the use of [...] should resume a low fat, low cholesterol, [place] Heart Association Diet/Diabetic diet. ?? Driving: No [...] @ 1:20p ?? Patient to follow-up with Tire Builder Operator/heart failure team in one week. An appointment has been made for you, you can call [phone] ?? Patient to follow-up with Cardiac Surgery, Dr. Yuan Webber, in ~ 4 weeks with CXR, EKG. ? Cardiac Rehabilitation: Gregory Hoang??was seen today regarding participation in the outpatient Phase 2 Cardiac Rehabilitation at [facility]. ?? The patient agrees to a referral to this program.? The referral will be sent at discharge and the patient should be contacted by the Program within 1- 2 weeks from discharge. ? Future Appointments and Orders Future Appointments Provider Department Dept Phone ?? 09/07/2017 3:00 PM LAB, THREE L Lab 3L [facility] [phone] ?? 09/07/2017 4:00 PM Luz Prescott MD Endocrinology at [facility] [phone] Future Orders Complete By Expires ?? EKG 12 Lead [EKG1 Custom] 08/14/2017 02/13/2018 ?? Process Instructions: ? Scheduling Instructions: ? Questions: ? Which location will this be performed?: [facility] ?? Is a rhythm strip needed?: No ?? If EKG Reason is Pre-op Evaluation, indicate diagnosis for surgery.: ?? XR Chest PA & Lateral (Generic) [[id number] Custom] 08/14/2017 02/13/2018 ?? Process Instructions: ? Scheduling Instructions: ? Questions: ? Where will study be performed?: [facility] ?? Portable exam?: ?? Reason for exam and clinical history: CABG x 3 ?? Other pertinent information: ?? Stat read required?: ?? Date of injury if applicable: ?? Requested Time: ?? Referral to Cardiac Rehab [[id number] Custom] As directed ? Process Instructions: ?? If no progress note charted, please enter Clinical details in comments. ?? Scheduling Instructions: ? Questions: ? My question or request is: s/p CABG. Cardiac rehab at [facility] ? Arrangements for VNA/home care: As above. [...] as of this encounter Progress Notes Myrna Young, RN - 07/14/2017 2:39 PM EST See flowsheet for VS. Pt and educated about medication, discharge and post op teaching, diet, daily weights, set up with VNA. Pt rested with no complaints. Scant amount of sternal drainage on dressing. STACIE Teague notified and cleaned and redressed. Pt taken to door in wheel chair. Zulma Andres RN - 07/14/2017 2:34 PM EST The patient/service support representative has been provided a list of Home Health Agencies/DME vendors which serve their preferred geographic area. A letter describing our affiliations was reviewed with them and theywere educated about their right to choose where referrals are placed. Patient requests referral to [facility]. PHONE: [phone] FAX: [phone] Expected date of discharge: 07/14 Referral routed to the Asphalt Spreader Operator for matching with agency/vendor and to provide any required information. Kathie Beckman APRN - 07/14/2017 11:13 AM EST Images [...] day to have your insulin doses adjusted. [facility] Endocrine clinic office Kathie Carrera APRN [facility] Endocrinology Diabetes Management Pager [phone] minutes of this 35 minute visit was spent with the patient in counseling on diabetes and treatment plan, reviewing all glucose and insulin data as well as relevant laboratory results with the patient, and coordination of care on the inpatient unit including nursing and primary team. Zulma Power RN - 07/14/2017 10:30 AM EST The patient/service support representative has been provided a list of Home Health Agencies/DME vendors which serve their preferred geographic area. A letter describing our affiliations was reviewed with them and theywere educated about their right to choose where referrals are placed. Patient requests referral to : [facility] ([facility] [place] [facility]-is in [place]) PHONE: [phone] FAX: [phone]. Expected date of discharge: 07/14/17 Referral routed to the Asphalt Spreader Operator for matching with agency/vendor and to provide any required information. Katerin Azul RN - 07/13/2017 2:10 PM EST Images [...] hours. If BG remains greater than 240, [id number] units (no more than three times) &??call [...] #6 s/p CABG X3. FSBG 80 at [place], reports no symptoms but did drink some [...] Will continue to follow Katerin Azul APRN [facility] Endocrinology Diabetes Management Pager [phone] minutes of this 25 minute visit [...] of infiltration/extravasation Discussed plan of care with UPKEEP WORKER and RN. Elevate exrtemity and apply intermittent Warm compresses. Name of MD contacted Dr. Shaw Brown 07/13/2017 @ 0618 Name of RN contacted Ale Rangel RN Name of Pharmacist if consulted NA Name of Plastics MD ( if consulted) NA (Mandatory photo for infiltrations/ extravasations scoring a stage 2 or greater, but recommended forstage 1)( include measuring tape and identifier in the photo) TURPENTINE DISTILLER CARING FOR THIS PATIENT WILL CONTINUE TO MONITOR AND WILL ASSUME CARE, VASCULAR ACCESS WILL NOT FOLLOW THIS EVENT AT THE SIGNING OF THIS NOTE. Portillo Pope RN - 07/13/2017 8:25 AM EST Images [...] measuring tape and identifier in the photo) TURPENTINE DISTILLER CARING FOR THIS PATIENT WILL CONTINUE TO MONITOR AND WILL ASSUME CARE, VASCULAR ACCESS WILL NOT FOLLOW THIS EVENT AT THE SIGNING OF THIS NOTE. Portillo Jones RN - 07/13/2017 8:16 AM EST Images from the original note were not included. 0800 Amiodarone infiltration to LUE treated with hyaluronidase injections, elevation and warm compresses. STACIE Hernandez notified. Pt informed and advised of all nursing actions prior to implementation, all of Mr. Hoang's questions and concerns with regard to both infiltrates addressed by this underwriter.All of MrMadiha Hoang's responses were entirely appropriate. Images of infiltrates attached here. L Martha Teague, INTEGRATION MANAGER - 07/13/2017 8:01 AM EST Cardiac Surgery Progress Note: ID: [id number] 72 year old male POD#6 s/p CABGx3 with pre-operative placed IABP for severe LV dysfunction. Pmhx pertinent for HTN, CHF, CAD, nSTEMI, IDDM, MARIA VICTOIRA, BPH, thyroid carcinoma s/p thyroidectomy melanoma EF- [...] % SpO2: [95 %-100 %] I/O: 07/12 0701 - 07/13 0700 In: 1722 [P.O.:1280; I.V.:342] Out: 1894 [Urine:1894] Diet: Carb Control diet 60/60/75 CHO counting [...] discharge. ?? I have met with the patient/service support representative to discuss discharge planning needs. I have provided the [facility], Office of Care Management letter from the Director Mba pertaining to rehab referrals. I have also provided a letter describing our affiliations within the [facility] and educated them about their right to choose where referrals are placed. ?? I reviewed the different levels of rehab including SNF, swing, acute and LTAC with the patient/service support representative. ?? The patient/service support representative has been provided a list of facilities within their preferred geographic area. ?? I have requested that the patient/service support representative provide at least three choices for referral. ?? The patient/service support representative have requested referrals to: ?? [facility]. [facility] ?? 2. [facility] ?? 3. More to be entered ?? Expected date of discharge: 07/14 Note routed to Asphalt Spreader Operator who will communicate referrals to facilities and [...] hours. If BG remains greater than 240, [id number] units (no more than three times) & [...] hours. If BG remains greater than 240, ysyzqp77 units (no more than three times) & call for new basal insulin orders. ??If less than 240 after two hours, give no insulin and resume prior schedule. Will continue to follow Katerin Azul APRN [facility] Endocrinology Diabetes Management Pager [phone] minutes of this 35 minute visit was spent with the patient in counseling on diabetes and treatment plan, reviewing all glucose and insulin data as well as relevant laboratory results with the patient, and coordination of care on the inpatient unit including nursing and primary team. Makayla Stevenson APRN - 07/12/2017 9:52 AM EST Cardiac Surgery Progress Note: ID: [id number] 72 year old male POD#5 s/p CABGx3 [...] %-100 %] I/O: 07/11 0701 - 07/12 07 In: 1599.3 [P.O.:1220; I.V.:379.3] Out: 1075 [Urine:1075] [...] edema Incisions: CDI sternotomy LABS: Recent Labs 07/12/17 0411 07/10/17 0428 WBC -- 12.2* HGB -- [...] for HF Signed: MAKAYLA WILSON APRN Yanet Rodriguez RN - 07/11/2017 7:18 PM EST Patient arrived from [facility]. VSS. MSI dressing pulled off with fresh [...] hours. If BG remains greater than 240, [id number] units (no more than three times) & call for new basal insulin orders. ??If less than 240 after two hours, give no insulin and resume prior schedule. Orders for insulin placed and discussed with RN. Team updated with plan as documented above. Patient reviewed with Dr Diamond. Jeane Tatum MD PGY-5 Endocrinology Fellow 07/11/17 ?? I have seen the patient and reviewed Dr. Tatmu's above history and I agree with the details as written. The assessment and plan were formulated in discussion with me and I agree with them as documented. MARCK DIAMOND MD Makayla Wilson APRN - 07/11/2017 11:21 AM EST Cardiac Surgery Progress Note: ID: [id number] 72 year old male POD#4 s/p CABGx3 [...] Out: 2235 [Urine:2235] Diet: Carb Control diet 60/60/75 CHO counting [...] hours. If BG remains greater than 240, [id number] units (no more than three times) & [...] with them as documented. MARCK DIAMOND MD MaldonadoSamy MD - 07/10/2017 9:37 AM EST Cardiac Surgery Progress Note: ID: [id number] 72 year old male POD#3 s/p CABGx3 [...] %-99 %] I/O: 07/09 0701 - 07/10 0700 In: 1143.6 [P.O.:30; I.V.:1113.6] Out: 1894 [Urine:177] Diet: NPO diet (Hold Meds) Admit weight [...] SVG harvest site c/d/i LABS: Recent Labs 07/10/1742707/09/17 0230 07/08/17 0840 07/08/17 0400 07/07/17 2200 [...] -- -- -- 224 -- Recent Labs 07/10/178 07/09/17 0230 07/08/17 0400 07/07/17 2200 NA 143 144 139 -- K 4.6 Not Perf 5.1* 4.7 3.4* CL 107 111* 104 -- CO2 21* 21* 21* -- BUN 20 17 16 -- CREATININE 1.19 1.34 1.55* -- GLUCOSE 178 179 -- -- CALCIUM 7.4* 7.1* -- -- ABG (Arterial Blood Gas) No results found for: PHART, PO2ART, EWQ8WHA Assessment/Plan: 72 year old male POD#3 s/p [...] Mami Thao - 07/09/2017 6:29 PM EST Flat Machine Cutter Encounter Note Patient Name: Gregory Hoang : [id number] MR#: [id number] Admit Date: 07/05/2017 4:20 PM Hospital Day 4 days Narrative: Patient was sitting in chair, hugging heart pillow, opened his eyes, nodding to come into room Assessment: Patient was sleepy. Intervention and Outcome: Introduced cold meat cook services and patient reached his hand out in appreciation. Follow-up: Flat Machine Cutter remains available for support. Time in Direct Care: 5 min. Mami Thao 07/09/2017 Nick Wadsworth MD - 07/09/2017 1:35 PM EST STAFF [...] the unit. NICK SEGAL MD 07/09/2017 Yane Vences, RN - 07/09/2017 10:45 AM EST Report given to staff scientist to cover care Maddison Cee PA - 07/09/2017 9:00 AM EST Cardiac Surgery Progress Note: ID: [id number] 72 year old male POD#2 s/p CABGx3 [...] completed shifts: In: 7977.4 [I.V.:7477.4; Other:500] Out: 7995 [Urine:3000; Other:615] I- 4 L O- 2.7 [...] line, TPW, meds CT, L pleural CT, ocasio, RIJuan LABS: Recent Labs 07/09/17 0230 07/08/17 0840 [...] O2 as tolerated GI: RBOs, protonix : paulino, continue to monitor I+O Renal: Lasix 20 IV qd x 2 days, then transition to Lasix 20 po. Check K, replete K prn ID: periop antibiotics complete Heme: ASA 81 Endo: insulin gtt, continue care per diabetes management, appreciate the consult Dispo: CVCC, FULL CODE DW Attending Surgeon on rounds. Signed: STEPHANIE Iqbal [facility] Section of Cardiac Surgery Date: 07/09/2017 Magnolia Santiago RCP - 07/09/2017 1:[address] ICU [...] when IABP d/c'ed. Gretchen Carolina, PT Pager [phone] Maddison Cee PA - 07/08/2017 11:27 AM EST Cardiac Surgery Progress Note: ID: [id number] 72 year old male POD#1 s/p CABGx3 [...] femoral), TPW, meds CT, L pleural CT, ROXANA ocasio LABS: Recent Labs 07/08/17 0840 07/08/17 0400 [...] Attending Surgeon on rounds. Signed: STEPHANIE Iqbal [facility] Section of Cardiac Surgery Date: 07/08/2017 Philipp, Nick Patel MD - 07/08/2017 10:27 AM EST STAFF [...] unit. NICK SEGAL MD 07/08/2017 Jay Munoz RCP - 07/08/2017 4:[address] Surgery [...] and PSBT's at care teams request. Daphne Sheikh MD - 07/07/2017 2:13 PM EST Cardiovascular [...] 0.9 % 5 mL Intravenous BID ??? [MAR Hold] insulin regular human 0.5-16 Units/hr Intravenous Change bag every evening ??? [MAR Hold] atorvastatin 80 mg Oral QPM Continuous Infusions: ??? electrolyte (pH 7.4) ??? [MAR Hold] heparin (porcine) 2,400 Units/hr (07/07/17 1000) ? ? [MAR Hold] nitroPRUSSide 0.2 mg/mL (standard ADULT & [...] in place in R femoral. No hematoma. BUTTER FAT TESTER- Intact Psych- Anxious Skin- Dry, no peripheral [...] and responsive. Grossly intact. Labs Recent Labs 07/07/1751407/06/170 07/05/172019 WBC 7.6 7.6 10.3* HGB 14.4 13.4* 14.1 HCT 42.1 39.7* 40.8 PLATELET 188 189 204 Recent Labs 07/07/1751407/06/17193907/06/1780907/05/172019 NA 142 -- 141 -- 139 K 4.4 3.9 4.5 < > 3.8 CL 102 -- 101 -- 98 CO2 26 -- 27 -- 27 BUN 15 -- 16 -- 20 CREATININE 1.09 -- 1.04 -- 1.12 < > = values in this interval not displayed. Recent Labs 07/07/1751407/06/1780907/05/172019 CALCIUM 8.6 8.1* 8.1* MAGNESIUM 0.94 0.84 0.68* Recent Labs 07/07/1751407/07/17 0000 07/06/17 1815 07/06/17 1124 INR -- -- -- 1.0 PT -- -- -- 13.3 PTT 69* 103* 94* 52* Recent Labs 07/07/1751407/06/17193907/06/17 1410 CK 88 93 101 TROPONINT 2.07* [...] Dinorah Ramírez MD, PGY-1 Cardiology S1 (pgr. [id number]) Daphne Shahid MD - 07/06/2017 10:18 PM [...] intact. IABP in place in R femoral. BUTTER FAT TESTER- Intact Psych- Anxious Skin- Dry, no peripheral [...] on the unit. DAPHNE SHAHID MD 07/06/2017 Nick Segal MD - 07/06/2017 10:48 AM EST STAFF [...] No current respiratory distress No evidence for RAHDA Wbc 7.6; afebrile plavix yesterday; heparin drip [...] BP and blood sugars orders written. Daphne Shahid MD - 07/06/2017 5:17 AM EST Inpatient [...] and responsive. Grossly intact. Labs Recent Labs 07/06/17 0220 07/05/17201907/05/17 1655 WBC 7.6 10.3* 6.8 HGB 13.4* [...] 1655 PTT 52* 32 41* Recent Labs 07/06/1780907/06/1721907/05/172019 CK 124 129 149 TROPONINT 2.26* 2.13* [...] pending CABG - hold metformin - f/u [facility] ?? #Home Meds - continue levothyroxine 175mcg [...] Dinorah Ramírez MD, PGY-1 Cardiology S1 (pgr. [id number]) . CARDIOLOGY ATTENDING NOTE Patient: Gregory Hoang [...] note for details. DAPHNE SHAHID MD Pager 0002 Jet Mckenna MD - 07/05/2017 6:48 PM EST Preliminary Cardiac Catheterization Procedure Note: Procedure(s) performed: Left heart cath, IABP insertion Access: Right ACCOUNTING PRACTICE MANAGER-->8fr IABP A time-out was conducted prior to [...] effect. Heparin gtt maintained. Pt transferred to cath lab technologist. documented in this encounter H&P Notes Daphne Shahid MD - 07/05/2017 6:08 PM EST CARDIOLOGY HISTORY & PHYSICAL EXAM Date of Admission: 07/05/2017 ( Hospital Day 0 days ) Responsible Attending: Daphne Shahid MD PCP: Lovely Vicente MD PCP#: [phone] Patient Active Problem List Diagnosis Code ??? [...] load with heparin drip and transferred to [facility]. While there, continued sob, question of chest pain. Stat TTE showing WMA diffusely and EF around 20%. No significant valvular disease. Taken to the cath lab technologist urgently for ongoing STEMI. [facility] Labs: INR 1.0 WBC 5.88 Hgb 12.9 [...] monitor I/O - s/p lasix in the cath lab technologist, redose to aim net neg 1L by [...] - ISS - hold metformin - f/u HAIC #Home Meds - continue levothyroxine 175mcg - CPAP at night # Routine - DVT PPx: heparin drip - Diet: NPO - Code Status: FULL - Dispo: CVCC Cedric Bey MD Internal Medicine, PGY-2 Cardiology S1, Team Pager # [phone] CARDIOLOGY ATTENDING NOTE Patient: Gregory Hoang Date [...] amenable for PCI. DAPHNE SHAHID MD Pager [phone] documented in this encounter Miscellaneous Notes Consult Note - Daphne Shahid MD - 07/14/2017 11:46 AM EST Heart Failure Service Inpatient Consult Note Gregory Hoang Date of : 1945 Age: 72 y.o. Today's date: 07/14/17 PCP: Lovely Vicente MD METER RECORD CLERK: None Place of Service: C451-A Reason for Consult: Dr. Webber has requested [...] SETUP performed by Manny Mcknight MD at [facility] OR ??? PRO CABG, ARTERIAL, SINGLE N/A 07/07/2017 @CABG, USING ARTERIAL GRAFT;SINGLE ARTERIAL GRAFT (WRVU 33.75) performed by Yuan Webber MD at [facility] OR ??? PRO CABG, ARTERY-VEIN, TWO N/A 07/07/2017 @CABG, TWO VENOUS GRAFTS & ARTERIAL GRAFT (WRVU 7.93) performed by Yuan Webber MD at [facility] OR ??? PRO COLONOSCOPY, REMV LESN, SNARE 01/16/2014 COLONOSCOPY, POLYPECTOMY, REMOVAL LESION BY SNARE performed by Nohemi Jaimes MD at [facility] ENDOSCOPY ??? PRO ENDOSCOPY W/VIDEO-ASST VEIN HARVEST, CABG Right 07/07/2017 ENDOSCOPIC HARVEST VEIN(S) FOR CABG (WRVU 0.31) performed by Yuan Webber MD at [facility] OR ??? PRO THYROIDECTOMY 03/28/2013 THYROIDECTOMY, TOTAL OR COMPLETE performed by Manny Mcknight MD at [facility] MAIN OR Outpt Meds: Current Outpatient Prescriptions [...] following studies: EKG 07/14/17: NSR 75 bpm, JAILER CHIEF anterior infarct, LAD CXR 07/11/17: FINDINGS: Sternotomy wires. The patient has been extubated, left chest tube removed, and [place]Suzi catheter removed since the 07/07/2017 study. Atelectasis [...] of the ramus. Laboratory Data: Recent Labs 07/10/178 07/09/17 0230 07/08/17 0400 WBC 12.2* 12.5* 18.8* HGB 9.8* 10.1* 11.9* HCT 30.0* 30.3* 35.9* PLATELET 135* 127* 232 Recent Labs 07/14/176 07/13/17 0426 07/12/17 0411 INR 2.4* 1.8* [...] was discussed with Zehra. Jaden Kelley MD Ergonomics Consultant Pager [phone] CARDIOLOGY ATTENDING NOTE Patient: Gregory Hoang Date [...] heart failure clinic. DAPHNE SHAHID MD Pager [phone] Plan of Care - Alden Chavarria, BROKER IN CHARGE - 07/14/2017 11:35 AM EST Problem: Patient [...] Anticipated Discharge Disposition: home with assist Alden Jorge Genikevin, BROKER IN CHARGE Pager: [phone] Inpatient Physical Therapy Problem: Acute Rehab Services [...] sit/sit to supine -- Bed Mobility Goal, Ralls Level supervision required -- Bed Mobility Goal, [...] - 3 days -- Gait Training Goal, Ralls Level supervision required -- Gait Training Goal, [...] days -- Transfer Training Goal, Activity Type fsp-vq-xvamk/znpda-rc-blz;iks-jf-dlqqm/qrvtj-jk-dfi;toilet -- Transfer Train Goal, Ralls Level supervision required -- Transfer Training Goal, Additional Goal adheres to sternal precautions during transfer -- Transfer Training Goal, Outcome -- goal met Plan of Care - Denice Jacobson RN - 07/14/2017 4:55 AM EST Problem: Patient Care Overview Goal: Plan of Care Review Outcome: Ongoing (Interventions Implemented as Appropriate) 07/13/17 0502 12/19/17 1942 Coping/Psychosocial Plan Of Care Reviewed With [...] keeping present for 2 days per family. Filter Tender Jelly noted of frustrations, house keeping sent to room. Patient offered showered twice, refused. at bedside, frustrated that shower not complete, informed that patient had refused several times. requesting to see GIS TECHNICIAN, paged sent to Martha, will come to bedside (middle of consult). not willing to wait, Martha notified that family had gone home. Encouraged to come for morning rounds a t 8am. Diabetes team at bedside - insulin adjustments made. Call cabello in reach. Continue to monitor. PLAN MOVING FORWARD: Ambulate, dressing changes BID, Please change drsg at 4am per Martha GIS TECHNICIAN request. INDIVIDUALIZED FALL PREVENTION INTERVENTIONS: Patient-specific fall [...] Outcome: Ongoing (Interventions Implemented as Appropriate) 07/12/17 2100 07/13/17 0502 Coping/Psychosocial Plan Of Care Reviewed With [...] levels on the lower side, 60ml of [place] juice given after a FS of 80. [...] EVALUATION: Ongoing Goal: Fall Prevention-Safe Patient Handling 07/12/1761107/12/172099 Daily Care Interventions Self-Care Promotion independence encouraged;BADL [...] -- up in chair Goal: Infection Control 07/12/172099 Safety Interventions Isolation Precautions standard precautions maintained Infection Prevention rest/sleep promoted;single patient room provided Coping Strategies Supportive Measures active listening utilized;self-responsibility promoted;verbalization of feelingsencouraged;self-care encouraged Goal: Discharge Needs Assessment 07/10/17209907/13/17 0502 Discharge Needs Assessment Concerns To Be [...] Conf 07/13/17 0502 Interdisciplinary Rounds/Family Conf Participants vocational case manager;dietitian/nutrition services;nursing;occupational therapy;patient;pharmacy;physical therapy;physician Plan of Care - [...] Anticipated Discharge Disposition: home with assist Pager: [phone] CLARISSA SEGAL, PT 07/12/2017 Physical Therapy Rehabilitation Department 2016 PT Evaluation Code Rationale: ?? Diagnosis & [...] to sit/sit to supine Bed Mobility Goal, Ralls Level supervision required Bed Mobility Goal, Additional Goal adheres to psternal precautions for transfer Goal: Gait Training Goal Stand Alone Therapy Goal Outcome: Ongoing (Interventions Implemented as Appropriate) 07/12/17 1225 Gait Training Goal Gait Training Goal, Date Established 07/12/17 Gait Training Goal, Time to Achieve 2 - 3 days Gait Training Goal, Ralls Level supervision required Gait Training Goal, Assist [...] 3 days Transfer Training Goal, Activity Type vtu-ry-adeex/jcqja-me-wfx;vux-jh-kygjq/rtnww-jm-zcd;toilet Transfer Train Goal, Ralls Level supervision required Transfer Training Goal, Additional Goal adheres to sternal precautions during transfer Consult Note - Octavia Vaughn RN - 07/12/2017 10:50 AM EST [facility] CARDIAC REHABILITATION Gregory Hoang was seen today regarding participation in the outpatient Phase 2 Cardiac Rehabilitation at [facility]. The patient agrees to a referral to [...] IV site, amio to other piv and COMMUNITY MARKETING MANAGER at bedside to help assess, IV removed. [...] Outcome: Ongoing (Interventions Implemented as Appropriate) 07/11/17199907/11/17200907/12/17 0000 Daily Care Interventions Self-Care Promotion -- -- [...] Body Position -- supine, head elevated -- 07/12/17 0612 Daily Care Interventions Self-Care Promotion independence encouraged;BADL [...] staff, he stood and marched in place. [place] weak, wanting to sit back down. Remained in chair until 1820 when he was assisted back to bed. He then promptly went back in rapid atrial fib.Dr. Maldonado notified, aware and wanting to wait before giving any metoprolol. SBP just around 90 throughout these episodes. Afib lasted about 25 minutes and he converted to sinus rhythm aroun 191. See flow sheet for further information. PLAN [...] Mutuality Outcome: Ongoing (Interventions Implemented as Appropriate) 07/05/172157 Mutuality/Individual Preferences What Anxieties, Fears or Concerns [...] Control Outcome: Ongoing (Interventions Implemented as Appropriate) 07/09/17199907/10/17 0848 Safety Interventions Isolation Precautions -- standard precautions [...] Outcome: Ongoing (Interventions Implemented as Appropriate) 07/10/172099 Cardiac Surgery Problems Assessed (Cardiac Surgery) all [...] Health/Prescription Coverage: Primary Insurance: MEDICARE Secondary Insurance: [place] Prescription Coverage: yes Preferred Pharmacy: [facility] [place] Other: none Primary Care Provider: Lovely Vicente MD [phone] Patient/Caregiver Goals of Treatment:live and get my breath back Potential Needs for Transition of Care: Rehab/SNF: [facility] Home Health: NA DME: TBD Dialysis: na Community Resources: available Transportation: yes Other: none Anticipated Barriers to Discharge/Special Considerations: none Plan: Likely SNF Rehab before home A member of the Care Management team will continue to monitor progress, follow for continuity of care and assist with transition of care planning. 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 Diabetes History: Gregory Hoang has [...] potential to d/c gtt and start CF. intermediate diabetes care: Medications - Outpatient treatment regimen recommendations pending based on the hospital course. Monitoring - continue BG tid ac & hs Diet - low fat/low carb diet Exercise - weight-bearing exercise 30 min/day, as tolerated Thank you for allowing us to provide care for your patient W/E coverage, Dr. Jeane Tatum, pager [phone] Katerin Azul APRN Endocrinology Diabetes Management Pager [phone] Plan of Care - Walt Stephanie Wyatt RN - 07/08/2017 6:54 AM EST Problem: Patient Care Overview Goal: Plan of Care Review Outcome: Ongoing (Interventions Implemented as Appropriate) 07/08/17518 Coping/Psychosocial Plan Of Care Reviewed With patient;spouse [...] IVF (HR now SR, 90s). Tmax 38.1, MD informed. Unable to control pt's glucose with current insulin protocol, insulin gtt at 15 w/ hourly boluses. Md informed, bolus order liberalized, no effect. Chest [...] Webber MD - 07/07/2017 6:27 PM EST [facility] Operative Note Patient Name: Gregory Hoang : [id number] MR#: [id number] Case Date: 07/07/2017 Surgeon: Surgeon(s) and Role: * Yuan Webber MD - Primary * Michael Drake PA - Physician Wood Flooring Specialist * Linda Flores PA - Physician Wood Flooring Specialist Preoperative diagnosis: 3VD Postoperative diagnosis: CAD, severe [...] Operative Note Patient Name: Gregory Hoang : [id number] MR#: [id number] Case Date: 07/07/2017 Surgeon: Surgeon(s) and Role: * Yuan Webber MD - Primary * Michael Drake PA - Physician Wood Flooring Specialist * Linda Flores PA - Physician Wood Flooring Specialist Preoperative diagnosis: 3VD Postoperative diagnosis: CAD, severe [...] (ACS)) none Med Student Progress Note - Jovani Katty - 07/07/2017 6:19 AM EST Inpatient Cardiology [...] place, time, and situation Labs Recent Labs 07/07/1751407/06/17 0220 07/05/172019 WBC 7.6 7.6 10.3* HGB 14.4 13.4* 14.1 HCT 42.1 39.7* 40.8 PLATELET 188 189 204 Recent Labs 07/07/1751407/06/17 1940 07/06/1780907/05/172019 NA 142 -- 141 -- 139 K 4.4 3.9 4.5 < > 3.8 CL 102 -- 101 -- 98 CO2 26 -- 27 -- 27 BUN 15 -- 16 -- 20 CREATININE 1.09 -- 1.04 -- 1.12 < > = values in this interval not displayed. No results for input(s): AST, ALT, ALKPHOS, BILITOT, BILIDIR in the last 168 hours. Recent Labs 07/07/1751407/06/1780907/05/172019 CALCIUM 8.6 8.1* 8.1* MAGNESIUM 0.94 0.84 0.68* Recent Labs 07/07/1751407/07/17 0000 07/06/17 18107/06/17 1124 INR -- -- -- 1.0 PT [...] segment of the ramus. ? Assessment: Gregory Hoang??is a 72 y.o.??male??w/ a h/o MARIA VICTORIA [...] major CV events such as , stroke, FL, repeat revascularization compared to PCI). In this [...] CABG - hold metformin - f/u HAIC ? #Home Meds - continue levothyroxine 175mcg - CPAP at night ?? #Restless legs - On home magnesium, repleting here as needed ?? #Anxiety - Ativan 1mg q6h as needed ? # Routine - DVT PPx: heparin drip - GI PPx: none - Diet: NPO - Lines/Tubes: PIV x2, IABP - Dispo: CVCC - code status: Full Code Katty Hahn, MS3 [facility] Cardiology S1 (Pager [phone]) Plan of Care - Emelia Ibarra RN [...] hospital and ruled infor non-ST segment elevation FL. This almost certainly represents the residual of [...] SETUP performed by Manny Mcknight MD at [facility] MAIN OR ??? PRO COLONOSCOPY, REMV LESN, SNARE 01/16/2014 COLONOSCOPY, POLYPECTOMY, REMOVAL LESION BY SNARE performed by Nohemi Jaimes MD at [facility] ENDOSCOPY ??? PRO THYROIDECTOMY 03/28/2013 THYROIDECTOMY, TOTAL OR COMPLETE performed by Manny Mcknight MD at [facility] MAIN OR Social History: Social History [...] with other involved physicians Yuan Webber MD [phone] Med Student Progress Note - Katty Hahn - 07/06/2017 6:10 AM EST Inpatient Cardiology [...] Neuro: grossly intact Labs Recent Labs 07/06/17 0220 07/05/17 2020 07/05/17 1655 WBC 7.6 10.3* 6.8 HGB 13.4* 14.1 14.0 HCT 39.7* 40.8 41.0 PLATELET 189 204 197 Recent Labs 07/06/17 0810 07/06/170 07/05/17201907/05/17 1655 NA 141 -- 139 142 K 4.5 3.9 3.8 4.0 CL 101 -- 98 100 CO2 27 -- 27 28 BUN 16 -- 20 19 CREATININE 1.04 -- 1.12 1.04 No results for input(s): AST, ALT, ALKPHOS, BILITOT, BILIDIR in the last 168 hours. Recent Labs 07/06/17 0810 07/05/17201907/05/17 1655 CALCIUM 8.1* 8.1* 8.5 MAGNESIUM 0.84 0.68* 0.78 Recent Labs 07/06/17 02207/05/17201907/05/17 1655 PTT 52* 32 41* Recent Labs 07/06/17 0810 07/06/1721907/05/172019 CK 124 129 149 TROPONINT 2.26* [...] major CV events such as , stroke, [place], repeat revascularization compared to PCI). In this [...] or BiPAP - s/p lasix in the cath lab technologist, was net -1.5L - s/p plavix load, [...] insulin drip - hold metformin - f/u HAI ?? #Home Meds - continue levothyroxine 175mcg - CPAP at night ?? # Routine - DVT PPx: heparin drip - Diet: Healthy heart diet, NPO at midnight for CABG tomorrow - Code Status: FULL - Dispo: CVCC Katty Hahn, M3 [facility] Cardiology S1 (Pager [phone]) Plan of Care - Stephanie Godoy RN - 07/06/2017 5:00 AM EST Problem: Patient Care Overview Goal: Plan of Care Review 07/06/17 3986 Coping/Psychosocial Plan Of Care Reviewed With patient;family [...] in urinal without difficulty. Lasix given in cath lab technologist, 1.4 L out at this time. Pt [...] (CPG) Outcome: Ongoing (Interventions Implemented as Appropriate) 07/06/17 0446 Skin Integrity Impairment, Risk/Actual Skin Integrity Impairment, [...] CPG). Outcome: Ongoing (Interventions Implemented as Appropriate) 07/06/176 Intra-Aortic Balloon Pump Problems Assessed (Intra-Aortic Balloon [...] Outcome: Ongoing (Interventions Implemented as Appropriate) 07/06/17 0446 Cardiac: ACS (Acute Coronary Syndrome) Problems Assessed [...] 02/19/2022 Office Visit Cardiology Liz Poole PA [facility] Medical [facility] er Cardiology Dept [place], [place] [address] (Wo rk) 03/12/2022 Office Visit Cardiology Vitaliy Nobles MD [facility] ER CARDIOLOGY [place], [place] [address] (Wo rk) Scheduled Orders Name [...] procedure are i n the results section. ADDING MACHINE MECHANIC SCAN 07/15/2017 12:00 Res ults for this [...] Routine 07/08/2017 4:00 Results f or this ([facility]/CGP) AM EST procedure are i n the [...] Yes 07/07/2017 1:35 CAD VEIN(S) FOR CABG (WRVU PM EST 0.31) @CABG, TWO VENOUS GRAFTS Yes 07/07/2017 1:35 CAD & ARTERIAL GRAFT (WRVU PM EST 7.93) @CABG, USING ARTERIAL Yes 07/07/2017 1:35 CAD GRAFT;SINGLE ARTERIAL PM EST GRAFT (WRVU 33.75) PREPARE COAG FACTORS STAT 07/07/2017 1:25 [...] Routine 07/07/2017 5:15 Results f or this ([facility]/CGP) AM EST procedure are i n the [...] Routine 07/06/2017 7:40 Results f or this ([facility]/CGP) PM EST procedure are i n the [...] Timed 07/06/2017 2:10 Results f or this ([facility]/CG) PM EST procedure are i n the [...] section. TYPE AND SCREEN Routine 07/06/2017 12:00 ([facility]/CGP/SHANDA) PM EST APTT STAT 07/06/2017 11:24 Results [...] Routine 07/06/2017 8:10 Results f or this ([facility]/CGP) AM EST procedure are i n the [...] Routine 07/06/2017 2:20 Results f or this ([facility]/CGP) AM EST procedure are i n the [...] Routine 07/05/2017 8:20 Results f or this ([facility]/CGP) PM EST procedure are i n the [...] Timed 07/05/2017 4:55 Results f or this ([facility]) PM EST procedure are i n the [...] residents interpretation and agree with the findings, Micehlle Monaco at 08/19/2017 10:30 AM Martha Teague APRN IMG DX ORDERABLES SCAN DOC: ADDING MACHINE MECHANIC (07/15/2017 12:00 AM EST) Narrative 07/15/2017 12:00 [...] Signature POC Glucose 186 65 - 199 [facility] mg/dL [facility] Comment: Supplemental ranges: <140 mg/dL before meals <180 mg/dL all other times of the day Specimen Anatomical Collection Method Collection Time Receive d Time (Source) Location / / Volume Laterality Blood specimen 07/14/2017 11:56 7 (specimen) AM EST 11:56 AM EST Yuan Webber MD POINT OF CARE TEST ORDERABLE S Performing Organization Address City/State/[place] [address] POCT Glucose (07/14/2017 7:52 AM EST) athologist Signature POC Glucose 126 65 - 199 [facility] Comment: Supplemental ranges: <140 mg/dL before meals <180 mg/dL all other times of the day Specimen Anatomical Collection Method Collection Time Receive d Time (Source) Location / / Volume Laterality Blood specimen 07/14/2017 7:52 AM 017 7:52 (specimen) EST AM EST Yuan Webber MD POINT OF CARE TEST ORDERABLE S Performing Organization Address [facility]/[place] [address] (ABNORMAL) Prothrombin Time (07/14/2017 4:46 AM EST) athologist Signature PT 26.4 (H) 11.8 - 14.0 [facility] LABORATORY INR 2.4 (H) 0.9 - 1.1 [facility] LABORATORY [...] Wilson APRN HEMATOLOGY ORDERABLES Performing Organization Address City/[facility] [place] [address] Potassium (07/14/2017 4:46 AM EST) athologist Signature Potassium 4.3 3.5 - 5.0 [facility] mmol/L [facility] Comment: Please note: ??Patients with [...] Organization Address City/State/ZIP Code Phon e Number [address] POCT Glucose (07/14/2017 4:34 AM EST) athologist Signature POC Glucose 115 65 - 199 [place] mg/dL [facility] Comment: Supplemental ranges: <140 mg/dL before meals <180 mg/dL all other times of the day Specimen Anatomical Collection Method Collection Time Receive d Time (Source) Location / / Volume Laterality Blood specimen 07/14/2017 4:34 AM 017 4:34 (specimen) EST AM EST Yuan Webber MD POINT OF CARE TEST ORDERABLE S Performing Organization Address City/[facility]/ZIP Code Phon e Number [address] POCT Glucose (07/13/2017 11:33 PM EST) athologist Signature POC Glucose 132 65 - 199 [place] mg/dL [facility] Comment: Supplemental ranges: <140 mg/dL before meals <180 mg/dL all other times of the day Specimen Anatomical Collection Method Collection Time Receive d Time (Source) Location / / Volume Laterality Blood specimen 07/13/2017 11:33 7 (specimen) PM EST 11:33 PM EST Yuan Webber MD POINT OF CARE TEST ORDERABLE S Performing Organization Address City/[facility]/[place] [address] POCT Glucose (07/13/2017 9:25 PM EST) athologist Signature POC Glucose 121 65 - 199 [place] mg/dL [facility] Comment: Supplemental ranges: <140 mg/dL before meals <180 mg/dL all other times of the day Specimen Anatomical Collection Method Collection Time Receive d Time (Source) Location / / Volume Laterality Blood specimen 07/13/2017 9:25 PM 017 9:25 (specimen) EST PM EST Yuan Webber MD POINT OF CARE TEST ORDERABLE S Performing Organization Address City/State/[place] [address] POCT Glucose (07/13/2017 4:55 PM EST) athologist Signature POC Glucose 79 65 - 199 [place] mg/dL [facility] Comment: Supplemental ranges: <140 mg/dL before meals <180 mg/dL all other times of the day Specimen Anatomical Collection Method Collection Time Receive d Time (Source) Location / / Volume Laterality Blood specimen 07/13/2017 4:55 PM 017 4:55 (specimen) EST PM EST Yuan Webber MD POINT OF CARE TEST ORDERABLE S Performing Organization Address City/State/[place] [address] [facility] [address] POCT Glucose (07/13/2017 11:16 AM EST) athologist Signature POC Glucose 163 65 - 199 [place] mg/dL [facility] Comment: Supplemental ranges: <140 mg/dL before meals <180 mg/dL all other times of the day Specimen Anatomical Collection Method Collection Time Receive d Time (Source) Location / / Volume Laterality Blood specimen 07/13/2017 11:16 7 (specimen) AM EST 11:16 AM EST Yuan Webber MD POINT OF CARE TEST ORDERABLE S Performing Organization Address City/State/[place] [address] POCT Glucose (07/13/2017 8:07 AM EST) athologist Signature POC Glucose 96 65 - 199 [place] mg/dL [facility] Comment: Supplemental ranges: <140 mg/dL before meals <180 mg/dL all other times of the day Specimen Anatomical Collection Method Collection Time Receive d Time (Source) Location / / Volume Laterality Blood specimen 07/13/2017 8:07 AM 017 8:07 (specimen) EST AM EST Yuan Webber MD POINT OF CARE TEST ORDERABLE S Performing Organization Address City/State/[place] [address] (ABNORMAL) Prothrombin Time (07/13/2017 4:26 AM EST) P athologist Signature PT 20.8 (H) 11.8 - 14.0 [facility] LABORATORY INR 1.8 (H) 0.9 - 1.1 [facility] LABORATORY [...] Comment Spec In Lab Makayla Katie QUINONES HEMATOLOGY ORDERABLES Performing Organization Address City/State/[place] [address] (ABNORMAL) Basic Metabolic Panel (non-fasting) (07/13/2017 4:26 AM EST) athologist Signature Glucose Lvl 95 65 - 199 [facility] mg/dL [facility] Comment: Diabetes: >=200 mg/dL plus symp toms BUN 25 (H) 10 - 20 mg/dL [facility] Creatinine 1.19 0.80 - 1.50 mg/dL [facility] Sodium 143 135 - 145 mmol/L [facility] Potassium 3.7 3.5 - 5.0 mmol/L [facility] Comment: Please note: ??Patients with WBC >100,00 0 may have falsely elevated Potassium levels. ??For accurate Potassium quantif ication in these patients send serum separator tube (gold top) for subsequent determinations. ??Contact the Clinical Chemistry Laboratory if there are any qu estions. Chloride 104 98 - 107 mmol/L [facility] CO2 26 22 - 31 mmol/L [facility] Anion Gap 13 5 - 15 mmol/L [facility] Calcium 7.7 (L) 8.5 - 10.5 mg/dL [facility] Estimated GFR 60 >=60 [facility] Comment: The reported eGFR should be multiplied b y 1.2 for patients. The MDRD is not an appropriate measure o f renal function for patients with body mass extremes or in patients with acute kidney failure. http://[employer]/DHnkdep http://[employer]/DHMCnkf Specimen Anatomical Collection Method Collection Time Receive d Time (Source) Location / / Volume Laterality Blood specimen 07/13/2017 4:26 AM 017 4:46 (specimen) EST AM EST Resulting Agency Comment Spec In Lab Makayla Wilson APRN CHEMISTRY ORDERABLES Performing Organization Address City/State/ZIP Code Phon e Number [address] POCT Glucose (07/13/2017 3:52 AM EST) athologist Signature POC Glucose 93 65 - 199 [facility] mg/dL [facility]OR[facility] Comment: Supplemental ranges: <140 mg/dL before meals <180 mg/dL all other times of the day Specimen Anatomical Collection Method Collection Time Receive d Time (Source) Location / / Volume Laterality Blood specimen 07/13/2017 3:52 AM 017 3:52 (specimen) EST AM EST Yuan Webber MD POINT OF CARE TEST ORDERABLE S Performing Organization Address City/State/ZIP Code Phon e Number [address] POCT Glucose (07/13/2017 12:21 AM EST) athologist Signature POC Glucose 80 65 - [address] [facility] Comment: Supplemental ranges: <140 mg/dL before meals <180 mg/dL all other times of the day Specimen Anatomical Collection Method Collection Time Receive d Time (Source) Location / / Volume Laterality Blood specimen 07/13/2017 12:21 7 (specimen) AM EST 12:21 AM EST Yuan Webber MD POINT OF CARE TEST ORDERABLE S Performing Organization Address City/[facility]/ZIP Code Phon e Number [address] POCT Glucose (07/12/2017 8:22 PM EST) P athologist Signature POC Glucose 119 65 - 199 [facility] mg/dL [facility] Comment: Supplemental ranges: <140 mg/dL before meals <180 mg/dL all other times of the day Specimen Anatomical Collection Method Collection Time Receive d Time (Source) Location / / Volume Laterality Blood specimen 07/12/2017 8:22 PM 017 8:22 (specimen) EST PM EST Yuan Webber MD POINT OF CARE TEST ORDERABLE S Performing Organization Address City/[facility]/ZIP Code Phon e Number [address] POCT Glucose (07/12/2017 4:02 PM EST) P athologist Signature POC Glucose 114 65 - 199 [facility] SU mg/dL [facility] Comment: Supplemental ranges: <140 mg/dL before meals <180 mg/dL all other times of the day Specimen Anatomical Collection Method Collection Time Receive d Time (Source) Location / / Volume Laterality Blood specimen 07/12/2017 4:02 PM 017 4:02 (specimen) EST PM EST Yuan Webber MD POINT OF CARE TEST ORDERABLE S Performing Organization Address City/State/ZIP Code Phon e Number [address] POCT Glucose (07/12/2017 11:28 AM EST) P athologist Signature POC Glucose 164 65 - 199 [facility] SU mg/dL [facility] Comment: Supplemental ranges: <140 mg/dL before meals <180 mg/dL all other times of the day Specimen Anatomical Collection Method Collection Time Receive d Time (Source) Location / / Volume Laterality Blood specimen 07/12/2017 11:28 7 (specimen) AM EST 11:28 AM EST uYan Webber MD POINT OF CARE TEST ORDERABLE S Performing Organization Address City/State/ZIP Code Phon e Number [address] POCT Glucose (07/12/2017 7:34 AM EST) athologist Signature POC Glucose 109 65 - [address] [facility] Comment: Supplemental ranges: <140 mg/dL before meals <180 mg/dL all other times of the day Specimen Anatomical Collection Method Collection Time Receive d Time (Source) Location / / Volume Laterality Blood specimen 07/12/2017 7:34 AM 017 7:34 (specimen) EST AM EST Yuan Webber MD POINT OF CARE TEST ORDERABLE S Performing Organization Address City/State/[place] [address] (ABNORMAL) Basic Metabolic Panel (non-fasting) (07/12/2017 4:11 AM EST) athologist Signature Glucose Lvl 92 65 - [address] [facility]dL [facility] Comment: Diabetes: >=200 mg/dL plus symp toms BUN 31 (H) 10 - 20 mg/dL [facility] Creatinine 1.23 0.80 - 1.50 mg/dL [facility] Sodium 145 135 - 145 mmol/L [facility] Potassium Not Perf 3.5 - 5.0 mmol/L [facility] Comment: Duplicate order Please note: ??Patients with WBC >100,00 0 may have falsely elevated Potassium levels. ??For accurate Potassium quantif ication in these patients send serum separator tube (gold top) for subsequent determinations. ??Contact the Clinical Chemistry Laboratory if there are any qu estions. Chloride 106 98 - 107 mmol/L [facility] CO2 Not Perf 22 - 31 mmol/L [facility] Comment: Add-on request. Sample too old to perform test. Anion Gap Not Calculated 5 - 15 mmol/L [facility] Calcium 8.1 (L) 8.5 - 10.5 mg/dL [facility] Estimated GFR 58 (L) >=60 [facility] Comment: The reported eGFR should be multiplied b y 1.2 for patients. The MDRD is not an appropriate measure o f renal function for patients with body mass extremes or in patients with acute kidney failure. http://[employer]/DHnkdep http://[employer]/DHMCnkf Specimen Anatomical Collection Method Collection Time Receive d Time (Source) Location / / Volume Laterality Blood specimen 07/12/2017 4:11 AM 017 8:57 (specimen) EST AM EST Resulting Agency Comment Spec [facility] CHEMISTRY ORDERABLES Performing Organization Address [facility] Phon e Number [address] (ABNORMAL) Prothrombin Time (07/12/2017 4:11 AM EST) P athologist Signature PT 15.4 (H) 11.8 - 14.0 [facility] LABORATORY INR 1.2 (H) 0.9 - 1.1 [facility] LABORATORY [...] Resulting Agency Comment Spec In Lab Makayla Dejesusfield STACIE HEMATOLOGY ORDERABLES Performing Organization Address [facility] Phon e Number [address] Potassium (07/12/2017 4:11 AM EST) P athologist Signature Potassium 3.8 3.5 - 5.0 [facility] mmol/L [facility] Comment: Please note: ??Patients with [...] Wilson APRN CHEMISTRY ORDERABLES Performing Organization Address City/[facility]/ZIP Code Phon e Number [address] POCT Glucose (07/12/2017 4:10 AM EST) athologist Signature POC Glucose 90 65 - [address] [facility] Comment: Supplemental ranges: <140 mg/dL before meals <180 mg/dL all other times of the day Specimen Anatomical Collection Method Collection Time Receive d Time (Source) Location / / Volume Laterality Blood specimen 07/12/2017 4:10 AM 017 4:10 (specimen) EST AM EST Yuan Webber MD POINT OF CARE TEST ORDERABLE S Performing Organization Address City/[facility]/ZIP Code Phon e Number [address] POCT Glucose (07/11/2017 11:57 PM EST) P athologist Signature POC Glucose 98 65 - 199 [facility] Comment: Supplemental ranges: <140 mg/dL before meals <180 mg/dL all other times of the day Specimen Anatomical Collection Method Collection Time Receive d Time (Source) Location / / Volume Laterality Blood specimen 07/11/2017 11:57 7 (specimen) PM EST 11:57 PM EST Yuan Webber MD POINT OF CARE TEST ORDERABLE S Performing Organization Address City/[facility]/[place] [address] POCT Glucose (07/11/2017 8:32 PM EST) P athologist Signature POC Glucose 146 65 - 199 [facility] mg/dL [facility] Comment: Supplemental ranges: <140 mg/dL before meals <180 mg/dL all other times of the day Specimen Anatomical Collection Method Collection Time Receive d Time (Source) Location / / Volume Laterality Blood specimen 07/11/2017 8:32 PM 017 8:32 (specimen) EST PM EST Yuan Webber MD POINT OF CARE TEST ORDERABLE S Performing Organization Address City/State/ZIP Code Phon e Number [facility] [place] [place] [address] XR Chest PA & [...] e xtubated, left chest tube removed, and [place]Suzi catheter removed since the study. Atelectasis at [...] e xtubated, left chest tube removed, and [place]Suzi catheter removed since the study. Atelectasis at [...] POC Glucose 223 (H) 65 - 199 [facility] mg/dL [facility] Comment: Supplemental ranges: <140 mg/dL before meals <180 mg/dL all other times of the day Specimen Anatomical Collection Method Collection Time Receive d Time (Source) Location / / Volume Laterality Blood specimen 07/11/2017 4:05 PM 017 4:05 (specimen) EST PM EST Yuan Webber MD POINT OF CARE TEST ORDERABLE S Performing Organization Address City/[facility]/ZIP Code Phon e Number [address] POCT Glucose (07/11/2017 11:55 AM EST) athologist Signature POC Glucose 176 65 - 199 [facility] mg/dL [facility] Comment: Supplemental ranges: <140 mg/dL before meals <180 mg/dL all other times of the day Specimen Anatomical Collection Method Collection Time Receive d Time (Source) Location / / Volume Laterality Blood specimen 07/11/2017 11:55 7 (specimen) AM EST 11:55 AM EST Yuan Webber MD POINT OF CARE TEST ORDERABLE S Performing Organization Address City/State/[place] [address] POCT Glucose (07/11/2017 7:53 AM EST) athologist Signature POC Glucose 189 65 - 199 [facility] mg/dL [facility] Comment: Supplemental ranges: <140 mg/dL before meals <180 mg/dL all other times of the day Specimen Anatomical Collection Method Collection Time Receive d Time (Source) Location / / Volume Laterality Blood specimen 07/11/2017 7:53 AM 017 7:53 (specimen) EST AM EST Yuan Webber MD POINT OF CARE TEST ORDERABLE S Performing Organization Address City/[facility]/[place] [address] POCT Glucose (07/11/2017 4:22 AM EST) athologist Signature POC Glucose 151 65 - 199 [facility] mg/dL [facility] Comment: Supplemental ranges: <140 mg/dL before meals <180 mg/dL all other times of the day Specimen Anatomical Collection Method Collection Time Receive d Time (Source) Location / / Volume Laterality Blood specimen 07/11/2017 4:22 AM 017 4:22 (specimen) EST AM EST Yuan Webber MD POINT OF CARE TEST ORDERABLE S Performing Organization Address City/[facility] [place] [address] Potassium (07/11/2017 2:20 AM EST) athologist Signature Potassium 4.5 3.5 - 5.[address] [facility] mmol/L [facility] Comment: Please note: ??Patients with [...] Webber MD CHEMISTRY ORDERABLES Performing Organization Address City/[facility]/[place] [facility] [place] Ph[place] Number [address] POCT Glucose (07/11/2017 12:17 AM EST) athologist Signature POC Glucose 162 65 - 199 [facility] Comment: Supplemental ranges: <140 mg/dL before meals <180 mg/dL all other times of the day Specimen Anatomical Collection Method Collection Time Receive d Time (Source) Location / / Volume Laterality Blood specimen 07/11/2017 12:17 7 (specimen) AM EST 12:17 AM EST Yuan Webber MD POINT OF CARE TEST ORDERABLE S Performing Organization Address City/State/[place] [address] POCT Glucose (07/10/2017 8:47 PM EST) athologist Signature POC Glucose 191 65 - 199 [facility] mg/dL [facility] Comment: Supplemental ranges: <140 mg/dL before meals <180 mg/dL all other times of the day Specimen Anatomical Collection Method Collection Time Receive d Time (Source) Location / / Volume Laterality Blood specimen 07/10/2017 8:47 PM 017 8:47 (specimen) EST PM EST Yuan Webber MD POINT OF CARE TEST ORDERABLE S Performing Organization Address City/State/[place] [address] POCT Glucose (07/10/2017 4:06 PM EST) athologist Signature POC Glucose 131 65 - 199 [facility] mg/dL [facility] Comment: Supplemental ranges: <140 mg/dL before meals <180 mg/dL all other times of the day Specimen Anatomical Collection Method Collection Time Receive d Time (Source) Location / / Volume Laterality Blood specimen 07/10/2017 4:06 PM 017 4:06 (specimen) EST PM EST Yuan Webber MD POINT OF CARE TEST ORDERABLE S Performing Organization Address City/State/[place] [address] POCT Glucose (07/10/2017 3:08 PM EST) athologist Signature POC Glucose 151 65 - 199 [facility] mg/dL [facility] Comment: Supplemental ranges: <140 mg/dL before meals <180 mg/dL all other times of the day Specimen Anatomical Collection Method Collection Time Receive d Time (Source) Location / / Volume Laterality Blood specimen 07/10/2017 3:08 PM 017 3:08 (specimen) EST PM EST Yuan Webber MD POINT OF CARE TEST ORDERABLE S Performing Organization Address City/State/ZIP Code Phon e Number [address] POCT Glucose (07/10/2017 2:25 PM EST) athologist Signature POC Glucose 146 65 - 199 [facility] mg/dL [facility] Comment: Supplemental ranges: <140 mg/dL before meals <180 mg/dL all other times of the day Specimen Anatomical Collection Method Collection Time Receive d Time (Source) Location / / Volume Laterality Blood specimen 07/10/2017 2:25 PM 017 2:25 (specimen) EST PM EST Yuan Webber MD POINT OF CARE TEST ORDERABLE S Performing Organization Address City/[facility]/[place] [address] POCT Glucose (07/10/2017 1:23 PM EST) athologist Signature POC Glucose 166 65 - 199 [facility] mg/dL [facility] Comment: Supplemental ranges: <140 mg/dL before meals <180 mg/dL all other times of the day Specimen Anatomical Collection Method Collection Time Receive d Time (Source) Location / / Volume Laterality Blood specimen 07/10/2017 1:23 PM 017 1:23 (specimen) EST PM EST Yuan Webber MD POINT OF CARE TEST ORDERABLE S Performing Organization Address City/State/[place] [address] POCT Glucose (07/10/2017 11:52 AM EST) athologist Signature POC Glucose 157 65 - 199 [facility] mg/dL [facility] Comment: Supplemental ranges: <140 mg/dL before meals <180 mg/dL all other times of the day Specimen Anatomical Collection Method Collection Time Receive d Time (Source) Location / / Volume Laterality Blood specimen 07/10/2017 11:52 7 (specimen) AM EST 11:52 AM EST Yuan Webber MD POINT OF CARE TEST ORDERABLE S Performing Organization Address City/State/ZIP Code Phon e Number [address] POCT Glucose (07/10/2017 11:01 AM EST) P athologist Signature POC Glucose 158 65 - 199 [facility] mg/dL [facility] Comment: Supplemental ranges: <140 mg/dL before meals <180 mg/dL all other times of the day Specimen Anatomical Collection Method Collection Time Receive d Time (Source) Location / / Volume Laterality Blood specimen 07/10/2017 11:01 7 (specimen) AM EST 11:01 AM EST Yuan Webber MD POINT OF CARE TEST ORDERABLE S Performing Organization Address City/[facility]/ZIP Code Phon e Number [address] POCT Glucose (07/10/2017 9:54 AM EST) P athologist Signature POC Glucose 160 65 - 199 [facility] mg/dL [facility] Comment: Supplemental ranges: <140 mg/dL before meals <180 mg/dL all other times of the day Specimen Anatomical Collection Method Collection Time Receive d Time (Source) Location / / Volume Laterality Blood specimen 07/10/2017 9:54 AM 017 9:54 (specimen) EST AM EST Yuan Webber MD POINT OF CARE TEST ORDERABLE S Performing Organization Address City/State/ZIP Code Phon e Number [address] POCT Glucose (07/10/2017 8:58 AM EST) P athologist Signature POC Glucose 183 65 - 199 [facility] SU mg/dL [facility] Comment: Supplemental ranges: <140 mg/dL before meals <180 mg/dL all other times of the day Specimen Anatomical Collection Method Collection Time Receive d Time (Source) Location / / Volume Laterality Blood specimen 07/10/2017 8:58 AM 017 8:58 (specimen) EST AM EST Yuan Webber MD POINT OF CARE TEST ORDERABLE S Performing Organization Address City/State/[place] [address] POCT Glucose (07/10/2017 8:01 AM EST) athologist Signature POC Glucose 173 65 - 199 [facility] mg/dL [facility] Comment: Supplemental ranges: <140 mg/dL before meals <180 mg/dL all other times of the day Specimen Anatomical Collection Method Collection Time Receive d Time (Source) Location / / Volume Laterality Blood specimen 07/10/2017 8:01 AM 017 8:01 (specimen) EST AM EST Yuan Webber MD POINT OF CARE TEST ORDERABLE S Performing Organization Address City/State/[place] [address] POCT Glucose (07/10/2017 7:05 AM EST) athologist Signature POC Glucose 166 65 - 199 [facility] mg/dL [facility] Comment: Supplemental ranges: <140 mg/dL before meals <180 mg/dL all other times of the day Specimen Anatomical Collection Method Collection Time Receive d Time (Source) Location / / Volume Laterality Blood specimen 07/10/2017 7:05 AM 017 7:05 (specimen) EST AM EST Yuan Webber MD POINT OF CARE TEST ORDERABLE S Performing Organization Address City/State/[place] [address] POCT Glucose (07/10/2017 6:00 AM EST) athologist Signature POC Glucose 162 65 - 199 [facility] mg/dL [facility] Comment: Supplemental ranges: <140 mg/dL before meals <180 mg/dL all other times of the day Specimen Anatomical Collection Method Collection Time Receive d Time (Source) Location / / Volume Laterality Blood specimen 07/10/2017 6:00 AM 017 6:00 (specimen) EST AM EST Yuan Webber MD POINT OF CARE TEST ORDERABLE S Performing Organization Address City/State/ZIP Code Phon e Number [address] (ABNORMAL) Differential, Automated (07/10/2017 4:28 AM EST) [facility] Method Time Signature Neutrophils % 87.9 % [facility]OR[facility] Neutr Abs (ANC) 10.70 (H) 1.70 - [facility] 6.10 [facility] x10(3)/[facility] LABORATORY Lymphocytes % 3.9 % [facility] Lymphocytes Abs 0.5 (L) 0.9 - 3.2 [facility] x10(3)/[facility] LABORATORY Monocytes % 7.0 % [facility] Monocyte Abs 0.8 0.3 - 0.9 [facility] x10(3)/[facility] LABORATORY Eosinophils % 0.3 % [facility] Eosinophils Abs 0.0 0.0 - 0.4 [facility] x10(3)/[facility] LABORATORY Basophils % 0.2 % [facility] Basophils Abs 0.0 0.0 - 0.1 [facility] x10(3)/[facility] LABORATORY Immature Gran % 0.70 % [...] Gran Abs 0.08 (H) 0.00 - 0.04 x10(3)/[facility] LABORATORY Specimen Anatomical Collection Method Collection Time Receive d Time (Source) Location / / Volume Laterality Blood specimen 07/10/2017 4:28 AM 017 4:36 (specimen) EST AM EST Resulting Agency Comment Spec In Lab Yuan Webber MD HEMATOLOGY ORDERABLES Performing Organization Address City/State/ZIP Code Phon e Number [place] [id number] (ABNORMAL) Hemogram (07/10/2017 4:28 AM EST) Analysis Performed At Patho logist Time Signature WBC 12.2 (H) 4.0 - 9.5 [facility] x10(3)/[facility] LABORATORY RBC 3.31 (L) 4.58 [facility] 5.54 [facility] x10(6)/[facility] LABORATORY Hemoglobin 9.8 (L) 13.7 - [facility] 16.5 gm/dL [facility] Hematocrit 30.0 (L) 40.5 - [facility] 48.5 % [facility] MCV 90.6 82.9 - [facility] 93.1 [facility] LABORATORY MCH 29.6 27.5 - [facility] 32.1 pg [facility] LABORATORY MCHC 32.7 32.0 - [facility] 35.7 gm/dL [facility] Platelets 135 (L) 145 - 357 [facility] x10(3)/[facility] LABORATORY RDWSD 50.8 (H) 36.0 - [facility] 45.0 [facility] LABORATORY RDWCV 15.4 (H) 11.4 [facility] 13.8 % [facility] LABORATORY MPV 10.0 7.6 - 12.9 [facility] LABORATORY nRBC % Auto 0.0 % [facility] LABORATORY nRBC Abs Auto 0.000 0.000 - [facility] 0.000 [facility] x10(3)/[facility] LABORATORY Specimen Anatomical Collection Method Collection Time Receive d Time (Source) Location / / Volume Laterality Blood specimen 07/10/2017 4:28 AM 017 4:36 (specimen) EST AM EST Resulting Agency Comment Spec In Lab Yuan Webber MD HEMATOLOGY ORDERABLES Performing Organization Address City/State/[place] [address] (ABNORMAL) Basic Metabolic Panel (non-fasting) (07/10/2017 4:28 AM EST) P athologist Signature Glucose Lvl 178 65 - 199 [facility] mg/dL [facility] Comment: Diabetes: >=200 mg/dL plus symp toms BUN 20 10 - 20 mg/dL [facility]ORATORY Creatinine 1.19 0.80 - 1.50 mg/dL [facility] Sodium 143 135 - 145 mmol/L [facility] [...] estions. Chloride 107 98 - 107 mmol/L [facility] CO2 21 (L) 22 - 31 mmol/L [facility] Anion Gap 15 5 - 15 mmol/L [facility] Calcium 7.4 (L) 8.5 - 10.5 mg/dL [facility] LABOR[facility]ORY Estimated GFR 60 >=60 [facility] Comment: The reported eGFR should be multiplied b y 1.2 for patients. The MDRD is not an appropriate measure o f renal function for patients with body mass extremes or in patients with acute kidney failure. http://[employer]/DHnkdep http://[employer]/DHMCnkf Specimen Anatomical Collection Method Collection Time Receive d Time (Source) Location / / Volume Laterality Blood specimen 07/10/2017 4:28 AM 017 4:36 (specimen) EST AM EST Resulting Agency Comment Spec In Lab Yuan Webber MD CHEMISTRY ORDERABLES Performing Organization Address City/State/[place] [address] POCT Glucose (07/10/2017 4:26 AM EST) P athologist Signature POC Glucose 176 65 - 199 [facility] mg/dL [facility] Comment: Supplemental ranges: <140 mg/dL before meals <180 mg/dL all other times of the day Specimen Anatomical Collection Method Collection Time Receive d Time (Source) Location / / Volume Laterality Blood specimen 07/10/2017 4:26 AM 017 4:26 (specimen) EST AM EST Yuan Webber MD POINT OF CARE TEST ORDERABLE S Performing Organization Address City/[facility]/[place] [address] (ABNORMAL) POCT Glucose (07/10/2017 3:06 AM EST) P athologist Signature POC Glucose 204 (H) 65 - 199 [place] [facility] mg/dL [facility] Comment: Supplemental ranges: <140 mg/dL before meals <180 mg/dL all other times of the day Specimen Anatomical Collection Method Collection Time Receive d Time (Source) Location / / Volume Laterality Blood specimen 07/10/2017 3:06 AM 017 3:06 (specimen) EST AM EST Yuan Webber MD POINT OF CARE TEST ORDERABLE S Performing Organization Address City/[facility]/[place] [address] (ABNORMAL) POCT Glucose (07/10/2017 2:10 AM EST) P athologist Signature POC Glucose 203 (H) 65 - 199 [place] [facility] mg/dL [facility] Comment: Supplemental ranges: <140 mg/dL before meals <180 mg/dL all other times of the day Specimen Anatomical Collection Method Collection Time Receive d Time (Source) Location / / Volume Laterality Blood specimen 07/10/2017 2:10 AM 017 2:10 (specimen) EST AM EST Yuan Webber MD POINT OF CARE TEST ORDERABLE S Performing Organization Address City/State/[place] [address] POCT Glucose (07/10/2017 1:09 AM EST) P athologist Signature POC Glucose 196 65 - 199 [place] [facility] mg/dL [facility] Comment: Supplemental ranges: <140 mg/dL before meals <180 mg/dL all other times of the day Specimen Anatomical Collection Method Collection Time Receive d Time (Source) Location / / Volume Laterality Blood specimen 07/10/2017 1:09 AM 017 1:09 (specimen) EST AM EST Yuan Webber MD POINT OF CARE TEST ORDERABLE S Performing Organization Address City/State/ZIP Code Phon e Number [address] POCT Glucose (07/10/2017 12:10 AM EST) P athologist Signature POC Glucose 173 65 - 199 [place] mg/dL [facility] Comment: Supplemental ranges: <140 mg/dL before meals <180 mg/dL all other times of the day Specimen Anatomical Collection Method Collection Time Receive d Time (Source) Location / / Volume Laterality Blood specimen 07/10/2017 12:10 7 (specimen) AM EST 12:10 AM EST Yuan Webber MD POINT OF CARE TEST ORDERABLE S Performing Organization Address City/State/ZIP Code Phon e Number [address] POCT Glucose (07/09/2017 11:01 PM EST) P athologist Signature POC Glucose 140 65 - 199 [place] mg/dL [facility] Comment: Supplemental ranges: <140 mg/dL before meals <180 mg/dL all other times of the day Specimen Anatomical Collection Method Collection Time Receive d Time (Source) Location / / Volume Laterality Blood specimen 07/09/2017 11:01 7 (specimen) PM EST 11:01 PM EST Yuan Webber MD POINT OF CARE TEST ORDERABLE S Performing Organization Address City/State/[place] [address] POCT Glucose (07/09/2017 10:05 PM EST) P athologist Signature POC Glucose 144 65 - 199 [facility] SU mg/dL [facility] Comment: Supplemental ranges: <140 mg/dL before meals <180 mg/dL all other times of the day Specimen Anatomical Collection Method Collection Time Receive d Time (Source) Location / / Volume Laterality Blood specimen 07/09/2017 10:05 7 (specimen) PM EST 10:05 PM EST Yuan Webber MD POINT OF CARE TEST ORDERABLE S Performing Organization Address City/[facility]/ZIP Code Phon e Number [address] POCT Glucose (07/09/2017 9:31 PM EST) athologist Signature POC Glucose 121 65 - 199 [place] ZHAOSU mg/dL [facility] Comment: Supplemental ranges: <140 mg/dL before meals <180 mg/dL all other times of the day Specimen Anatomical Collection Method Collection Time Receive d Time (Source) Location / / Volume Laterality Blood specimen 07/09/2017 9:31 PM 017 9:31 (specimen) EST PM EST Yuan Webber MD POINT OF CARE TEST ORDERABLE S Performing Organization Address City/[facility]/ZIP Code Phon e Number [address] POCT Glucose (07/09/2017 9:03 PM EST) athologist Signature POC Glucose 98 65 - 199 [place] [facility] mg/dL [facility] Comment: Supplemental ranges: <140 mg/dL before meals <180 mg/dL all other times of the day Specimen Anatomical Collection Method Collection Time Receive d Time (Source) Location / / Volume Laterality Blood specimen 07/09/2017 9:03 PM 017 9:03 (specimen) EST PM EST Yuan Webber MD POINT OF CARE TEST ORDERABLE S Performing Organization Address City/State/ZIP Code Phon e Number [address] POCT Glucose (07/09/2017 8:09 PM EST) athologist Signature POC Glucose 117 65 - 199 [facility] SU mg/dL [facility] Comment: Supplemental ranges: <140 mg/dL before meals <180 mg/dL all other times of the day Specimen Anatomical Collection Method Collection Time Receive d Time (Source) Location / / Volume Laterality Blood specimen 07/09/2017 8:09 PM 017 8:09 (specimen) EST PM EST Yuan Webber MD POINT OF CARE TEST ORDERABLE S Performing Organization Address City/State/[place] [address] POCT Glucose (07/09/2017 5:40 PM EST) athologist Signature POC Glucose 155 65 - 199 [place] [facility] mg/dL [facility] Comment: Supplemental ranges: <140 mg/dL before meals <180 mg/dL all other times of the day Specimen Anatomical Collection Method Collection Time Receive d Time (Source) Location / / Volume Laterality Blood specimen 07/09/2017 5:40 PM 017 5:40 (specimen) EST PM EST Yuan Webber MD POINT OF CARE TEST ORDERABLE S Performing Organization Address City/State/[place] [address] POCT Glucose (07/09/2017 4:24 PM EST) athologist Signature POC Glucose 164 65 - 199 [place] [facility] mg/dL [facility] Comment: Supplemental ranges: <140 mg/dL before meals <180 mg/dL all other times of the day Specimen Anatomical Collection Method Collection Time Receive d Time (Source) Location / / Volume Laterality Blood specimen 07/09/2017 4:24 PM 017 4:24 (specimen) EST PM EST Yuan Webber MD POINT OF CARE TEST ORDERABLE S Performing Organization Address City/State/[place] [address] POCT Glucose (07/09/2017 3:19 PM EST) athologist Signature POC Glucose 166 65 - 199 [place] mg/dL [facility] Comment: Supplemental ranges: <140 mg/dL before meals <180 mg/dL all other times of the day Specimen Anatomical Collection Method Collection Time Receive d Time (Source) Location / / Volume Laterality Blood specimen 07/09/2017 3:19 PM 017 3:19 (specimen) EST PM EST Yuan Webber MD POINT OF CARE TEST ORDERABLE S Performing Organization Address City/State/[place] [address] POCT Glucose (07/09/2017 2:26 PM EST) athologist Signature POC Glucose 179 65 - 199 [place] ZHAOUS mg/dL [facility] Comment: Supplemental ranges: <140 mg/dL before meals <180 mg/dL all other times of the day Specimen Anatomical Collection Method Collection Time Receive d Time (Source) Location / / Volume Laterality Blood specimen 07/09/2017 2:26 PM 017 2:26 (specimen) EST PM EST Yuan Webber MD POINT OF CARE TEST ORDERABLE S Performing Organization Address City/[facility]/[place] [address] (ABNORMAL) POCT Glucose (07/09/2017 1:29 PM EST) athologist Signature POC Glucose 210 (H) 65 - 199 [place] mg/dL [facility] Comment: Supplemental ranges: <140 mg/dL before meals <180 mg/dL all other times of the day Specimen Anatomical Collection Method Collection Time Receive d Time (Source) Location / / Volume Laterality Blood specimen 07/09/2017 1:29 PM 017 1:29 (specimen) EST PM EST Yuan Webber MD POINT OF CARE TEST ORDERABLE S Performing Organization Address City/[facility]/[place] [address] POCT Glucose (07/09/2017 12:20 PM EST) athologist Signature POC Glucose 172 65 - 199 [place] [facility] mg/dL [facility] Comment: Supplemental ranges: <140 mg/dL before meals <180 mg/dL all other times of the day Specimen Anatomical Collection Method Collection Time Receive d Time (Source) Location / / Volume Laterality Blood specimen 07/09/2017 12:20 7 (specimen) PM EST 12:20 PM EST Yuan Webber MD POINT OF CARE TEST ORDERABLE S Performing Organization Address City/State/ZIP Code Phon e Number [address] POCT Glucose (07/09/2017 11:24 AM EST) P athologist Signature POC Glucose 156 65 - 199 [place] mg/dL [facility] Comment: Supplemental ranges: <140 mg/dL before meals <180 mg/dL all other times of the day Specimen Anatomical Collection Method Collection Time Receive d Time (Source) Location / / Volume Laterality Blood specimen 07/09/2017 11:24 7 (specimen) AM EST 11:24 AM EST Yuan Webber MD POINT OF CARE TEST ORDERABLE S Performing Organization Address City/State/ZIP Code Phon e Number [address] POCT Glucose (07/09/2017 11:11 AM EST) athologist Signature POC Glucose 172 65 - 199 [place] [facility] mg/dL [facility] Comment: Supplemental ranges: <140 mg/dL before meals <180 mg/dL all other times of the day Specimen Anatomical Collection Method Collection Time Receive d Time (Source) Location / / Volume Laterality Blood specimen 07/09/2017 11:11 7 (specimen) AM EST 11:11 AM EST Yuan Webber MD POINT OF CARE TEST ORDERABLE S Performing Organization Address City/State/ZIP Code Phon e Number [address] POCT Glucose (07/09/2017 10:08 AM EST) P athologist Signature POC Glucose 176 65 - 199 [place] mg/dL [facility] Comment: Supplemental ranges: <140 mg/dL before meals <180 mg/dL all other times of the day Specimen Anatomical Collection Method Collection Time Receive d Time (Source) Location / / Volume Laterality Blood specimen 07/09/2017 10:08 7 (specimen) AM EST 10:08 AM EST Yuan Webber MD POINT OF CARE TEST ORDERABLE S Performing Organization Address City/State/[place] [address] POCT Glucose (07/09/2017 8:02 AM EST) P athologist Signature POC Glucose 178 65 - 199 [facility] mg/dL [facility] Comment: Supplemental ranges: <140 mg/dL before meals <180 mg/dL all other times of the day Specimen Anatomical Collection Method Collection Time Receive d Time (Source) Location / / Volume Laterality Blood specimen 07/09/2017 8:02 AM 017 8:02 (specimen) EST AM EST Yuan Webber MD POINT OF CARE TEST ORDERABLE S Performing Organization Address City/State/[place] [address] (ABNORMAL) BLOOD GAS 2 ARTERIAL (07/09/2017 5:37 AM EST) Analysis Performed At Patho logist Time Signature pH Art 7.36 7.35 - [facility] 7.45 [facility] pCO2 Art 38 35 - 45 [facility] mmHg [facility] pO2 Art 79 (L) 85 - 104 [facility] LABORATORY HCO3 Art 20.9 20.0 - [facility] 26.0 [facility] mmol/L [facility] BE Art -4.6 (L) -3.0 - 3.0 [facility] mmol/L [facility] Hgb Blood Gas 10.5 (L) 13.7 - [facility] 16.5 gm/dL [facility] O2HB Art 93.8 (L) 94.0 - [facility] 97.0 % [facility] COHB Art 0.3 % [facility] Comment: Nonsmokers: 0.5-1.5% COHB Smokers: Variable, but usually less than 10% Toxic: 20-30% COHB Lethal: Greater than 60% COHB METHB Art 0.6 <=1.5 % [facility] Na Whole Blood 141 135 - 145 mmol/L [facility] K Whole Blood 4.5 3.5 - 5.0 mmol/L [facility] Comment: Please note: Patients with WBC >100,000 may have falsely elevated Potassium levels. Contact the Clinical Chemistry L aboratory if there are any questions. ICa Whole Blood 1.01 (L) 1.15 - 1.33 mmol/L [facility] Comment: Note: ??Total bilirubin higher than 20 m g/dL may lead to falsely low ionized calcium. CL Whole Blood 113 (H) 98 - 107 mmol/L [facility] Gluc Whole Bld 175 65 - 199 mg/dL [facility] Comment: Diabetes: >=200 mg/dL plus symp toms. Lactate WB 1.0 0.5 - 2.2 mmol/L [facility] FIO2 Art 40 % [facility] PF Ratio Art 198 [facility] Specimen Anatomical Collection Method Collection Time Receive d Time (Source) Location / / Volume Laterality Blood specimen 07/09/2017 5:37 AM 017 5:37 (specimen) EST AM EST Yuan Webber MD CHEMISTRY ORDERABLES Performing Organization Address City/[facility]/ZIP Code Phon e Number [address] POCT Glucose (07/09/2017 3:27 AM EST) athologist Signature POC Glucose 192 65 - 199 [facility] mg/dL [facility] Comment: Supplemental ranges: <140 mg/dL before meals <180 mg/dL all other times of the day Specimen Anatomical Collection Method Collection Time Receive d Time (Source) Location / / Volume Laterality Blood specimen 07/09/2017 3:27 AM 017 3:27 (specimen) EST AM EST Yuan Webber MD POINT OF CARE TEST ORDERABLE S Performing Organization Address City/[facility]/[place] [address] (ABNORMAL) Basic Metabolic Panel (non-fasting) (07/09/2017 2:30 AM EST) P athologist Signature Glucose Lvl 179 65 - 199 [facility] mg/dL [facility] Comment: Diabetes: >=200 mg/dL plus symp toms BUN 17 10 - 20 mg/dL [facility] Creatinine 1.34 0.80 - 1.50 mg/dL [facility] Sodium 144 135 - 145 mmol/L [facility] Potassium Not Perf 3.5 - 5.0 mmol/L [facility] Comment: Duplicate order Please note: ??Patients with WBC >100,00 0 may have falsely elevated Potassium levels. ??For accurate Potassium quantif ication in these patients send serum separator tube (gold top) for subsequent determinations. ??Contact the Clinical Chemistry Laboratory if there are any qu estions. Chloride 111 (H) 98 - 107 mmol/L [facility] CO2 21 (L) 22 - 31 mmol/L [facility] Anion Gap 12 5 - 15 mmol/L [facility] Calcium 7.1 (L) 8.5 - 10.5 mg/dL [facility] Comment: result rechecked-[id number] Estimated GFR 53 (L) >=60 [facility] Comment: The reported eGFR should be multiplied b y 1.2 for patients. The MDRD is not an appropriate measure o f renal function for patients with body mass extremes or in patients with acute kidney failure. http://[employer]/DHnkdep http://[employer]/DHMCnkf Specimen Anatomical Collection Method Collection Time Receive d Time (Source) Location / / Volume Laterality Blood specimen Venous Draw / 07/09/2017 2:30 AM 2016 2:42 (specimen) Unknown EST AM EST Resulting Agency Comment Spec In Lab Yuan Webber MD CHEMISTRY ORDERABLES Performing Organization Address City/State/[place] [address] (ABNORMAL) Potassium (07/09/2017 2:30 AM EST) P athologist Signature Potassium 5.1 (H) 3.5 - 5.0 [facility] mmol/L [facility] Comment: Please note: ??Patients with [...] Organization Address City/State/[place] [address] (ABNORMAL) Hemogram (07/09/2017 2:30 AM EST) Analysis Performed At Patho logist Time Signature WBC 12.5 (H) 4.0 - 9.[address] [facility] x[facility](3[facility] LABORATORY RBC 3.38 (L) 4.58 - [facility] SU 5.54 [facility] x10(6)/[facility] LABORATORY Hemoglobin 10.1 (L) 13.7 - [facility] SU 16.5 gm/dL [facility] Hematocrit 30.3 (L) 40.5 - [facility] SU 48.5 % [facility] MCV 89.6 82.9 - [facility] SU 93.1 [facility] LABORATORY MCH 29.9 27.5 - [employer] 32.1 pg [facility] MCHC 33.3 32.0 - [place] 35.7 gm/dL [facility] Platelets 127 (L) 145 - [address] [facility] x[facility](3[facility] LABORATORY RDWSD 49.3 (H) 36.0 - [employer] 45.0 [facility] LABORATORY RDWCV 15.2 (H) 11.4 - [place] [facility] 13.8 % [facility] MPV 9.9 7.6 - 12.9 [facility] LABORATORY nRBC % Auto 0.0 % [facility] nRBC Abs Auto 0.000 0.000 - [employer] 0.000 [facility] x10(3)/[facility] LABORATORY Specimen Anatomical Collection Method Collection Time Receive d Time (Source) Location / / Volume Laterality Blood specimen 07/09/2017 2:30 AM 017 2:41 (specimen) EST AM EST Resulting Agency Comment Spec In Lab Yuan Webber MD HEMATOLOGY ORDERABLES Performing Organization Address City/[facility]/[place] [address] POCT Glucose (07/09/2017 2:10 AM EST) P athologist Signature POC Glucose 169 65 - 199 [place] [facility] mg/dL [facility] Comment: Supplemental ranges: <140 mg/dL before meals <180 mg/dL all other times of the day Specimen Anatomical Collection Method Collection Time Receive d Time (Source) Location / / Volume Laterality Blood specimen 07/09/2017 2:10 AM 017 2:10 (specimen) EST AM EST Yuan Webber MD POINT OF CARE TEST ORDERABLE S Performing Organization Address City/[facility]/[place] [address] POCT Glucose (07/09/2017 1:01 AM EST) P athologist Signature POC Glucose 173 65 - 199 [place] mg/dL [facility] Comment: Supplemental ranges: <140 mg/dL before meals <180 mg/dL all other times of the day Specimen Anatomical Collection Method Collection Time Receive d Time (Source) Location / / Volume Laterality Blood specimen 07/09/2017 1:01 AM 017 1:01 (specimen) EST AM EST Yuan Webber MD POINT OF CARE TEST ORDERABLE S Performing Organization Address City/[facility]/[place] [address] Blood culture (07/09/2017 12:40 AM EST) Patholo gist Method Time Signature Blood Culture No growth BARBARA DAVIS at 5 days. [facility] Specimen Anatomical Collection Method Collection Time Receive d Time (Source) Location / / Volume Laterality Blood specimen STRUCTURE OF RIGHT 07/09/2017 12:40 3:58 (specimen) UPPER LIMB / AM EST AM EST Unknown Resulting Agency Comment Spec In Lab Yuan Webber MD MICROBIOLOGY - BLOOD ORDERAB LES Performing Organization Address City/State/[place] [address] Blood culture (07/09/2017 12:30 AM EST) [facility] Method Time Signature Blood Culture No growth BARBAR[place] DAVIS at 5 days. [facility] Specimen Anatomical Collection Method Collection Time Receive d Time (Source) Location / / Volume Laterality Blood specimen STRUCTURE OF LEFT 07/09/2017 12:30 1211/2016 3:59 (specimen) UPPER LIMB / AM EST AM EST Unknown Resulting Agency Comment Spec In Lab Yuan Webber MD MICROBIOLOGY - BLOOD ORDERAB LES Performing Organization Address City/[facility]/[place] [address] (ABNORMAL) Urinalysis Microscopic Exam (07/09/2017 12:05 AM EST) Analysis Performed At Patho logist Time Signature RBC UA 32 (H) 0 - 3 /HPF [facility] WBC UA 5 (H) 0 - 3 /HPF [facility] Squam Epith UA <1 <=4 /HPF [facility] Hyaline Cast 17 (H) 0 - 2 /LPF [facility] Gran Cast UA 1 (H) <=0 /LPF [facility] Uric Ac Bianca Rare (A) None /HPF [facility] Specimen (Source) Anatomical Collection Method Collection Time Re ceived Time Location / / Volume Laterality Urine specimen 07/09/2017 12:05 7 obtained via AM EST 12:39 AM EST indwelling urinary catheter (specimen) Resulting Agency Comment Spec In Lab Yuan Webber MD URINE ORDERABLES Performing Organization Address City/[facility]/[place] [address] (ABNORMAL) Urinalysis with reflex Culture (07/09/2017 12:05 AM EST) [facility] Intellicyt Method Time Signature Glucose UA Negative Negative [facility] mg/dL [facility] Protein UA 30 (A) Negative [facility] Bilirubin UA Negative Negative [facility]dL [facility] Comment: Clinical correlation required for positi ve Urine Bilirubin results as false positive may occur with some drugs and d rug related products. If a false positive is suspected a serum total bili yeager should be considered if clinically indicated. Urobilinogen UA Normal Normal mg/dL [facility] pH UA 5.0 5.0 - 8.0 [facility] Blood UA Moderate (A) Negative mg/dL [facility] Ketones UA Negative Negative mg/dL [facility] Nitrite UA Negative Negative [facility] Leukocytes UA Negative Negative [facility] LABORATORY Appearance UA Hazy (A) Clear [facility] Spec Dolphin UA 1.025 1.002 - 1.030 [facility] Color UA Yellow Yellow [facility] Culture Reflexed No [facility] Specimen (Source) Anatomical Collection Method Collection Time Re ceived Time Location / / Volume Laterality Urine specimen 07/09/2017 12:05 7 obtained via AM EST 12:39 AM EST indwelling urinary catheter (specimen) Resulting Agency Comment Spec In Lab Yuan Webber MD URINE ORDERABLES Performing Organization Address City/State/[place] [address] POCT Glucose (07/08/2017 11:01 PM EST) P athologist Signature POC Glucose 191 65 - [address] [facility] mg/dL [facility] Comment: Supplemental ranges: <140 mg/dL before meals <180 mg/dL all other times of the day Specimen Anatomical Collection Method Collection Time Receive d Time (Source) Location / / Volume Laterality Blood specimen 07/08/2017 11:01 7 (specimen) PM EST 11:01 PM EST Yuan Webber MD POINT OF CARE TEST ORDERABLE S Performing Organization Address City/State/[place] [address] POCT Glucose (07/08/2017 10:04 PM EST) athologist Signature POC Glucose 198 65 - 199 [facility] Comment: Supplemental ranges: <140 mg/dL before meals <180 mg/dL all other times of the day Specimen Anatomical Collection Method Collection Time Receive d Time (Source) Location / / Volume Laterality Blood specimen 07/08/2017 10:04 7 (specimen) PM EST 10:04 PM EST Yuan Webber MD POINT OF CARE TEST ORDERABLE S Performing Organization Address City/State/[place] [address] Prepare Albumin 5% in 250 mL (07/08/2017 8:49 PM EST) athologist Signature Dispensed? Yes [facility] Specimen Anatomical Collection Method Collection Time Receive d Time (Source) Location / / Volume Laterality Blood specimen No Charge / 07/08/2017 8:49 PM 017 8:51 (specimen) Unknown EST PM EST Resulting Agency Comment Spec In Lab [facility] ORDERABLES Performing Organization Address City/State/[place] [address] POCT Glucose (07/08/2017 8:28 PM EST) athologist Signature POC Glucose 195 65 - 199 [facility] Comment: Supplemental ranges: <140 mg/dL before meals <180 mg/dL all other times of the day Specimen Anatomical Collection Method Collection Time Receive d Time (Source) Location / / Volume Laterality Blood specimen 07/08/2017 8:28 PM 017 8:28 (specimen) EST PM EST Yuan Webber MD POINT OF CARE TEST ORDERABLE S Performing Organization Address City/State/[place] [address] (ABNORMAL) POCT Glucose (07/08/2017 7:13 PM EST) P athologist Signature POC Glucose 220 (H) 65 - [address] [facility]dL [facility] Comment: Supplemental ranges: <140 mg/dL before meals <180 mg/dL all other times of the day Specimen Anatomical Collection Method Collection Time Receive d Time (Source) Location / / Volume Laterality Blood specimen 07/08/2017 7:13 PM 017 7:13 (specimen) EST PM EST Yuan Webber MD POINT OF CARE TEST ORDERABLE S Performing Organization Address City/State/ZIP Code Phon e Number [address] POCT Glucose (07/08/2017 5:04 PM EST) athologist Signature POC Glucose 147 65 - 199 [facility] Comment: Supplemental ranges: <140 mg/dL before meals <180 mg/dL all other times of the day Specimen Anatomical Collection Method Collection Time Receive d Time (Source) Location / / Volume Laterality Blood specimen 07/08/2017 5:04 PM 017 5:04 (specimen) EST PM EST Yuan Webber MD POINT OF CARE TEST ORDERABLE S Performing Organization Address City/State/[place] [address] (ABNORMAL) BLOOD GAS 2 ARTERIAL (07/08/2017 4:13 PM EST) Analysis Performed At Patho logist Time Signature pH Art 7.38 7.35 - [facility] 7.45 [facility] pCO2 Art 36 35 - 45 [facility] LABORATORY pO2 Art 91 85 - 104 [facility] LABORATORY HCO3 Art 20.9 20.0 - [facility] 26.0 [facility] mmol/L [facility] BE Art -4.2 (L) -3.0 - 3.0 [facility] mmol/L [facility] Hgb Blood Gas 11.7 (L) 13.7 - [facility] 16.5 gm/dL [facility] O2HB Art 95.1 94.0 - [facility] 97.0 % [facility] COHB Art 0.6 % [facility] Comment: Nonsmokers: 0.5-1.5% COHB Smokers: Variable, but usually less than 10% Toxic: 20-30% COHB Lethal: Greater than 60% COHB METHB Art 0.6 <=1.5 % [facility] Na Whole Blood 139 135 - 145 mmol/L [facility] K Whole Blood 4.2 3.5 - 5.0 mmol/L [facility] Comment: Please note: Patients with WBC >100,000 may have falsely elevated Potassium levels. Contact the Clinical Chemistry L aboratory if there are any questions. ICa Whole Blood 1.05 (L) 1.15 - 1.33 mmol/L [facility] Comment: Note: ??Total bilirubin higher than 20 m g/dL may lead to falsely low ionized calcium. CL Whole Blood 110 (H) 98 - 107 mmol/L [facility] Gluc Whole Bld 155 65 - 199 mg/dL [facility] Comment: Diabetes: >=200 mg/dL plus symp toms. Lactate WB 1.4 0.5 - 2.2 mmol/L [facility] FIO2 Art 40 % [facility] PF Ratio Art 228 [facility] Specimen Anatomical Collection Method Collection Time Receive d Time (Source) Location / / Volume Laterality Blood specimen 07/08/2017 4:13 PM 017 4:13 (specimen) EST PM EST Yuan Webber MD CHEMISTRY ORDERABLES Performing Organization Address City/State/[place] [address] POCT Glucose (07/08/2017 4:01 PM EST) P athologist Signature POC Glucose 148 65 - 199 [facility] mg/dL [facility] Comment: Supplemental ranges: <140 mg/dL before meals <180 mg/dL all other times of the day Specimen Anatomical Collection Method Collection Time Receive d Time (Source) Location / / Volume Laterality Blood specimen 07/08/2017 4:01 PM 017 4:01 (specimen) EST PM EST Yuan Webber MD POINT OF CARE TEST ORDERABLE S Performing Organization Address City/State/ZIP Code Phon e Number [address] POCT Glucose (07/08/2017 3:21 PM EST) athologist Signature POC Glucose 118 65 - 199 [facility] mg/dL [facility] Comment: Supplemental ranges: <140 mg/dL before meals <180 mg/dL all other times of the day Specimen Anatomical Collection Method Collection Time Receive d Time (Source) Location / / Volume Laterality Blood specimen 07/08/2017 3:21 PM 017 3:21 (specimen) EST PM EST Yuan Webber MD POINT OF CARE TEST ORDERABLE S Performing Organization Address City/[facility]/ZIP Code Phon e Number [address] POCT Glucose (07/08/2017 2:01 PM EST) athologist Signature POC Glucose 129 65 - 199 [facility] mg/dL [facility] Comment: Supplemental ranges: <140 mg/dL before meals <180 mg/dL all other times of the day Specimen Anatomical Collection Method Collection Time Receive d Time (Source) Location / / Volume Laterality Blood specimen 07/08/2017 2:01 PM 017 2:01 (specimen) EST PM EST Yuan Webber MD POINT OF CARE TEST ORDERABLE S Performing Organization Address City/State/[place] [address] POCT Glucose (07/08/2017 11:53 AM EST) athologist Signature POC Glucose 156 65 - 199 [facility] mg/dL [facility] Comment: Supplemental ranges: <140 mg/dL before meals <180 mg/dL all other times of the day Specimen Anatomical Collection Method Collection Time Receive d Time (Source) Location / / Volume Laterality Blood specimen 07/08/2017 11:53 7 (specimen) AM EST 11:53 AM EST Yuan Webber MD POINT OF CARE TEST ORDERABLE S Performing Organization Address City/State/ZIP Code Phon e Number [address] POCT Glucose (07/08/2017 11:04 AM EST) athologist Signature POC Glucose 181 65 - [address] [facility]dL [facility] Comment: Supplemental ranges: <140 mg/dL before meals <180 mg/dL all other times of the day Specimen Anatomical Collection Method Collection Time Receive d Time (Source) Location / / Volume Laterality Blood specimen 07/08/2017 11:04 7 (specimen) AM EST 11:04 AM EST Yuan Webber MD POINT OF CARE TEST ORDERABLE S Performing Organization Address City/[facility]/[place] [address] (ABNORMAL) POCT Glucose (07/08/2017 9:24 AM EST) athologist Signature POC Glucose 203 (H) 65 - 199 [facility]dL [facility] Comment: Supplemental ranges: <140 mg/dL before meals <180 mg/dL all other times of the day Specimen Anatomical Collection Method Collection Time Receive d Time (Source) Location / / Volume Laterality Blood specimen 07/08/2017 9:24 AM 017 9:24 (specimen) EST AM EST Yuan Webber MD POINT OF CARE TEST ORDERABLE S Performing Organization Address City/[facility]/[place] [address] APTT (07/08/2017 8:40 AM EST) athologist Signature PTT 33 25 - 35 sec [facility] Comment: The recommended therapeutic range for fu ll dose, unfractionated heparin at [facility] is 80 ? 114 seconds. The use [...] Webber MD HEMATOLOGY ORDERABLES Performing Organization Address City/[facility]/[place] [address] (ABNORMAL) Prothrombin Time (07/08/2017 8:40 AM EST) P athologist Signature PT 15.6 (H) 11.8 - 14.0 [facility] LABORATORY INR 1.3 (H) 0.9 - 1.1 [...] Webber MD HEMATOLOGY ORDERABLES Performing Organization Address City/[facility]/[place] [address] (ABNORMAL) POCT Glucose (07/08/2017 7:38 AM EST) P athologist Signature POC Glucose 232 (H) 65 - 199 [facility] mg/dL [facility] Comment: Supplemental ranges: <140 mg/dL before meals <180 mg/dL all other times of the day Specimen Anatomical Collection Method Collection Time Receive d Time (Source) Location / / Volume Laterality Blood specimen 07/08/2017 7:38 AM 017 7:38 (specimen) EST AM EST Yuan Webber MD POINT OF CARE TEST ORDERABLE S Performing Organization Address City/State/[place] [address] (ABNORMAL) POCT Glucose (07/08/2017 7:07 AM EST) athologist Signature POC Glucose 234 (H) 65 - 199 [facility] mg/dL [facility] Comment: Supplemental ranges: <140 mg/dL before meals <180 mg/dL all other times of the day Specimen Anatomical Collection Method Collection Time Receive d Time (Source) Location / / Volume Laterality Blood specimen 07/08/2017 7:07 AM 017 7:07 (specimen) EST AM EST Yuan Webber MD POINT OF CARE TEST ORDERABLE S Performing Organization Address City/State/[place] [address] (ABNORMAL) POCT Glucose (07/08/2017 6:04 AM EST) athologist Signature POC Glucose 225 (H) 65 - 199 [facility] mg/dL [facility] Comment: Supplemental ranges: <140 mg/dL before meals <180 mg/dL all other times of the day Specimen Anatomical Collection Method Collection Time Receive d Time (Source) Location / / Volume Laterality Blood specimen 07/08/2017 6:04 AM 017 6:04 (specimen) EST AM EST Yuan Webber MD POINT OF CARE TEST ORDERABLE S Performing Organization Address City/State/[place] [address] (ABNORMAL) POCT Glucose (07/08/2017 5:31 AM EST) athologist Signature POC Glucose 216 (H) 65 - 199 [facility] mg/dL [facility] Comment: Supplemental ranges: <140 mg/dL before meals <180 mg/dL all other times of the day Specimen Anatomical Collection Method Collection Time Receive d Time (Source) Location / / Volume Laterality Blood specimen 07/08/2017 5:31 AM 017 5:31 (specimen) EST AM EST Yuan Webber MD POINT OF CARE TEST ORDERABLE S Performing Organization Address City/State/[place] [address] (ABNORMAL) POCT Glucose (07/08/2017 4:52 AM EST) P athologist Signature POC Glucose 257 (H) 65 - 199 [facility] mg/dL [facility] Comment: Supplemental ranges: <140 mg/dL before meals <180 mg/dL all other times of the day Specimen Anatomical Collection Method Collection Time Receive d Time (Source) Location / / Volume Laterality Blood specimen 07/08/2017 4:52 AM 017 4:52 (specimen) EST AM EST Daphne Shahid MD POINT OF CARE TEST ORDERABLE S Performing Organization Address City/State/[place] [address] (ABNORMAL) BLOOD GAS 2 ARTERIAL (07/08/2017 4:04 AM EST) Analysis Performed At Patho logist Time Signature pH Art 7.30 (L) 7.35 - [facility] 7.45 [facility] pCO2 Art 41 35 - 45 [facility] LABORATORY pO2 Art 83 (L) 85 - 104 [facility] LABORATORY HCO3 Art 19.6 (L) 20.0 - [facility] 26.0 [facility] mmol/[facility] LABORATORY BE Art -6.8 (L) -3.0 - 3.0 [facility] mmol/L [facility] Hgb Blood Gas 12.2 (L) 13.7 - [facility] 16.5 gm/dL [facility] O2HB Art 93.5 (L) 94.0 - [facility] 97.0 % [facility] COHB Art 0.4 % [facility] Comment: Nonsmokers: 0.5-1.5% COHB Smokers: Variable, but usually less than 10% Toxic: 20-30% COHB Lethal: Greater than 60% COHB METHB Art 0.8 <=1.5 % [facility] Na Whole Blood 138 135 - 145 mmol/L [facility] K Whole Blood 4.4 3.5 - 5.0 mmol/L [facility] Comment: Please note: Patients with WBC >100,000 may have falsely elevated Potassium levels. Contact the Clinical Chemistry L aboratory if there are any questions. ICa Whole Blood 1.05 (L) 1.15 - 1.33 mmol/L [facility] Comment: Note: ??Total bilirubin higher than 20 m g/dL may lead to falsely low ionized calcium. CL Whole Blood 107 98 - 107 mmol/L [facility] Gluc Whole Bld 274 (H) 65 - 199 mg/dL [facility] Comment: Diabetes: >=200 mg/dL plus symp toms. Lactate WB 4.4 (Critical) 0.5 - 2.2 mmol/L [facility] Comment: Noted by brass and wind instrument repairer. FIO2 Art 40 % [facility] PF Ratio Art 208 [facility] Specimen Anatomical Collection Method Collection Time Receive d Time (Source) Location / / Volume Laterality Blood specimen 07/08/2017 4:04 AM 017 4:04 (specimen) EST AM EST Daphne Shahid MD CHEMISTRY ORDERABLES Performing Organization Address City/State/[place] [address] Scan, Peripheral Blood (07/08/2017 4:00 AM EST) P athologist Signature Plat Estimate Normal [facility] RBC Morphology Normal [facility] Specimen Anatomical Collection Method Collection Time Receive d Time (Source) Location / / Volume Laterality Blood specimen 07/08/2017 4:00 AM 017 4:09 (specimen) EST AM EST Resulting Agency Comment Spec In Lab Yuan Webber MD HEMATOLOGY ORDERABLES Performing Organization Address City/[facility]/[place] [address] (ABNORMAL) Differential, Automated (07/08/2017 4:00 AM EST) Patholo gist Method Time Signature Neutrophils % 85.4 % [facility] Neutr Abs (ANC) 16.07 (H) 1.70 - [facility] 6.10 [facility] x10(3)/[facility] LABORATORY Lymphocytes % 3.5 % [facility] Lymphocytes Abs 0.6 (L) 0.9 - 3.2 [facility] x10(3)/[facility] LABORATORY Monocytes % 10.4 % [facility] Monocyte Abs 2.0 (H) 0.3 - 0.9 [facility] x10(3)/[facility] LABORATORY Eosinophils % 0.0 % [facility] Eosinophils Abs 0.0 0.0 - 0.4 [facility] x10(3)/[facility] LABORATORY Basophils % 0.1 % [facility] Basophils Abs 0.0 0.0 - 0.1 [facility] x10(3)/[facility] LABORATORY Immature Gran % 0.60 % [...] Gran Abs 0.12 (H) 0.00 - 0.04 x10(3)/[facility] LABORATORY Specimen Anatomical Collection Method Collection Time Receive d Time (Source) Location / / Volume Laterality Blood specimen 07/08/2017 4:00 AM 017 4:09 (specimen) EST AM EST Resulting Agency Comment Spec In Lab Yuan Webber MD HEMATOLOGY ORDERABLES Performing Organization Address City/State/[place] [address] (ABNORMAL) Hemogram (07/08/2017 4:00 AM EST) Analysis Performed At Patho logist Time Signature WBC 18.8 (H) 4.0 - 9.5 [facility] x10(3)/[facility] LABORATORY RBC 4.00 (L) 4.58 - [facility] 5.54 [facility] x10(6)/[facility] LABORATORY Hemoglobin 11.9 (L) 13.7 - [facility] 16.5 gm/dL [facility] Hematocrit 35.9 (L) 40.5 - [facility] 48.5 % [facility] MCV 89.8 82.9 - [facility] 93.1 [facility] LABORATORY MCH 29.8 27.5 - [facility] 32.1 pg [facility] MCHC 33.1 32.0 - [facility] 35.7 gm/dL [facility] Platelets 232 145 - 357 [facility] x10(3)/[facility] LABORATORY RDWSD 47.6 (H) 36.0 - [facility] 45.0 [facility] LABORATORY RDWCV 14.5 (H) 11.4 [facility] 13.8 % [facility] MPV 9.5 7.6 - 12.9 [facility] LABORATORY nRBC % Auto 0.0 % [facility] nRBC Abs Auto 0.000 0.000 - [facility] 0.000 [facility] x10(3)/[facility] LABORATORY Specimen Anatomical Collection Method Collection Time Receive d Time (Source) Location / / Volume Laterality Blood specimen 07/08/2017 4:00 AM 017 4:09 (specimen) EST AM EST Resulting Agency Comment Spec In Lab Yuan Webber MD HEMATOLOGY ORDERABLES Performing Organization Address City/State/[place] [address] (ABNORMAL) Electrolytes panel (07/08/2017 4:00 AM EST) P athologist Signature Sodium 139 135 - 145 [facility] mmol/L [facility] Potassium 4.7 3.5 - 5.0 [facility] mmol/L [facility] Comment: result rechecked-JLK Please note: ??Patients with WBC >100,00 0 may have falsely elevated Potassium levels. ??For accurate Potassium quantif ication in these patients send serum separator tube (gold top) for subsequent determinations. ??Contact the Clinical Chemistry Laboratory if there are any qu estions. Chloride 104 98 - 107 mmol/L [facility] CO2 21 (L) 22 - 31 mmol/L [facility] Anion Gap 14 5 - 15 mmol/L [facility] Specimen Anatomical Collection Method Collection Time Receive d Time (Source) Location / / Volume Laterality Blood specimen 07/08/2017 4:00 AM 017 4:10 (specimen) EST AM EST Resulting Agency Comment Spec In Lab Yuan Webber MD CHEMISTRY ORDERABLES Performing Organization Address City/State/[place] [address] (ABNORMAL) Cardiac Enzymes (LEB/CGP) (07/08/2017 4:00 AM EST) P athologist Signature Troponin-T 1.88 (H) 0.00 - [facility] 0.00 ng/mL [facility] Comment: The 99th percentile for Troponin T is le ss than 0.01 ng/mL, any detectable cTnT concentration using this assay should be considered elevated. According to the third universal definit ion of myocardial infarction the following criteria with a clinical prese ntation consistent with acute myocardial ischemia meets the diagnosis for a myocardial infarction ([place]). Detection of a rise and/or fall of [...] additional sample may be indicated. Reference: Third [place] Definition of Myocardial Infarction. Journal of the [place] [employer] 2012;60:1581-98 CK, Total 413 (H) 0 - 200 unit/L [facility] Comment: result rechecked-JLK Specimen Anatomical Collection Method Collection Time Receive d Time (Source) Location / / Volume Laterality Blood specimen 07/08/2017 4:00 AM 017 4:09 (specimen) EST AM EST Resulting Agency Comment Spec In Lab Yuan Webber MD CHEMISTRY ORDERABLES Performing Organization Address City/[facility]/ZIP Code Phon e Number [address] (ABNORMAL) Glucose, fasting (07/08/2017 4:00 AM EST) P athologist Signature Glucose 287 (H) 65 - [address] [facility] Fasting mg/dL [facility] Comment: ?Fasting* Glucose Interpretive C [...] of Diabetes Mellitus, Position Statement from the [place] [employer]. ??Diabete s Care, Volume 33, Supplement 1, Jul 2009 Specimen Anatomical Collection Method Collection Time Receive d Time (Source) Location / / Volume Laterality Blood specimen 07/08/2017 4:00 AM 017 4:09 (specimen) EST AM EST Resulting Agency Comment Spec In Lab Yuan Webber MD CHEMISTRY ORDERABLES Performing Organization Address City/[facility]/[place] [address] (ABNORMAL) Creatinine (07/08/2017 4:00 AM EST) Analysis Performed At Patho logist Time Signature Creatinine 1.55 (H) 0.80 - [facility] 1.50 mg/dL [facility] Estimated GFR 44 (L) >=60 [facility] Comment: The reported eGFR should be multiplied b y 1.2 for patients. The MDRD is not an appropriate measure o f renal function for patients with body mass extremes or in patients with acute kidney failure. http://[employer]/DHnkdep http://[employer]/DHMCnkf Specimen Anatomical Collection Method Collection Time Receive d Time (Source) Location / / Volume Laterality Blood specimen 07/08/2017 4:00 AM 017 4:09 (specimen) EST AM EST Resulting Agency Comment Spec In Lab Yuan Webber MD CHEMISTRY ORDERABLES Performing Organization Address City/[facility]/[place] [address] BUN (07/08/2017 4:00 AM EST) athologist Signature BUN 16 10 - 20 [facility] mg/dL [facility] Specimen Anatomical Collection Method Collection Time Receive d Time (Source) Location / / Volume Laterality Blood specimen 07/08/2017 4:00 AM 017 4:09 (specimen) EST AM EST Resulting Agency Comment Spec In Lab Yuan Webber MD CHEMISTRY ORDERABLES Performing Organization Address City/[facility]/[place] [address] (ABNORMAL) POCT Glucose (07/08/2017 3:00 AM EST) athologist Signature POC Glucose 273 (H) 65 - 199 [facility]dL [facility] Comment: Supplemental ranges: <140 mg/dL before meals <180 mg/dL all other times of the day Specimen Anatomical Collection Method Collection Time Receive d Time (Source) Location / / Volume Laterality Blood specimen 07/08/2017 3:00 AM 017 3:00 (specimen) EST AM EST Daphne Shahid MD POINT OF CARE TEST ORDERABLE S Performing Organization Address City/[facility]/[place] [address] (ABNORMAL) POCT Glucose (07/08/2017 1:57 AM EST) athologist Signature POC Glucose 288 (H) 65 - 199 [facility] mg/dL [facility] Comment: Supplemental ranges: <140 mg/dL before meals <180 mg/dL all other times of the day Specimen Anatomical Collection Method Collection Time Receive d Time (Source) Location / / Volume Laterality Blood specimen 07/08/2017 1:57 AM 017 1:57 (specimen) EST AM EST Daphne Shahid MD POINT OF CARE TEST ORDERABLE S Performing Organization Address City/State/[place] [address] (ABNORMAL) POCT Glucose (07/08/2017 1:01 AM EST) P athologist Signature POC Glucose 315 (H) 65 - 199 [facility] mg/dL [facility] Comment: Supplemental ranges: <140 mg/dL before meals <180 mg/dL all other times of the day Specimen Anatomical Collection Method Collection Time Receive d Time (Source) Location / / Volume Laterality Blood specimen 07/08/2017 1:01 AM 017 1:01 (specimen) EST AM EST Daphne Shahid MD POINT OF CARE TEST ORDERABLE S Performing Organization Address City/[facility]/[place] [address] (ABNORMAL) BLOOD GAS 2 ARTERIAL (07/08/2017 12:09 AM EST) P athologist Signature pH Art 7.26 7.35 - [facility] (Critical) 7.45 [facility] Comment: Noted by brass and wind instrument repairer. pCO2 Art 41 35 - 45 mmHg [facility] pO2 Art 96 85 - [address] [facility] HCO3 Art 17.7 (L) 20.0 - 26.0 mmol/L [facility] BE Art -9.4 (L) -3.0 - 3.0 mmol/L [facility] Hgb Blood Gas 12.4 (L) 13.7 - 16.5 gm/dL [facility] LABORATORY O2HB Art 94.7 94.0 - 97.0 % [facility] COHB Art 0.2 % [facility] Comment: Nonsmokers: 0.5-1.5% COHB Smokers: Variable, but usually less than 10% Toxic: 20-30% COHB Lethal: Greater than 60% COHB METHB Art 0.6 <=1.5 % [facility] Na Whole Blood 141 135 - 145 mmol/L [facility] K Whole Blood 3.5 3.5 - 5.0 mmol/L [facility] Comment: Please note: Patients with WBC >100,000 may have falsely elevated Potassium levels. Contact the Clinical Chemistry L aboratory if there are any questions. ICa Whole Blood 1.03 (L) 1.15 - 1.33 mmol/L [facility] Comment: Note: ??Total bilirubin higher than 20 m g/dL may lead to falsely low ionized calcium. CL Whole Blood 109 (H) 98 - 107 mmol/L [facility] Gluc Whole Bld 315 (H) 65 - 199 mg/dL [facility] Comment: Diabetes: >=200 mg/dL plus symp toms. Lactate WB 7.6 (Critical) 0.5 - 2.2 mmol/L [facility] Comment: Noted by brass and wind instrument repairer. FIO2 Art 40 % [facility] PF Ratio Art 240 [facility] Specimen Anatomical Collection Method Collection Time Receive d Time (Source) Location / / Volume Laterality Blood specimen Arterial Draw / 07/08/2017 12:09 2016 5:31 (specimen) Unknown AM EST AM EST Resulting Agency Comment Spec In Lab Samy Maldonado MD CHEMISTRY ORDERABLES Performing Organization Address City/State/[place] [address] (ABNORMAL) POCT Glucose (07/07/2017 10:56 PM EST) P athologist Signature POC Glucose 292 (H) 65 - 199 [facility] mg/dL [facility] Comment: Supplemental ranges: <140 mg/dL before meals <180 mg/dL all other times of the day Specimen Anatomical Collection Method Collection Time Receive d Time (Source) Location / / Volume Laterality Blood specimen 07/07/2017 10:56 7 (specimen) PM EST 10:56 PM EST Daphne Shahid MD POINT OF CARE TEST ORDERABLE S Performing Organization Address City/State/[place] [address] (ABNORMAL) BLOOD GAS 2 ARTERIAL (07/07/2017 10:04 PM EST) P athologist Signature pH Art 7.22 7.35 - [facility] (Critical) 7.45 [facility] Comment: Noted by brass and wind instrument repairer. pCO2 Art 42 35 - 45 mmHg [facility] pO2 Art 94 85 - [address] [facility] HCO3 Art 16.9 (L) 20.0 - 26.0 mmol/L [facility] BE Art -10.7 (L) -3.0 - 3.0 mmol/L [facility] Hgb Blood Gas 13.0 (L) 13.7 - 16.5 gm/dL [facility] O2HB Art 93.8 (L) 94.0 - 97.0 % [facility] COHB Art 0.7 % [facility] Comment: Nonsmokers: 0.5-1.5% COHB Smokers: Variable, but usually less than 10% Toxic: 20-30% COHB Lethal: Greater than 60% COHB METHB Art 0.7 <=1.5 % [facility] Na Whole Blood 140 135 - 145 mmol/L [facility] K Whole Blood 3.3 (L) 3.5 - 5.0 mmol/L [facility] Comment: Please note: Patients with WBC >100,000 may have falsely elevated Potassium levels. Contact the Clinical Chemistry L aboratory if there are any questions. ICa Whole Blood 1.07 (L) 1.15 - 1.33 mmol/L [facility] Comment: Note: ??Total bilirubin higher than 20 m g/dL may lead to falsely low ionized calcium. CL Whole Blood 107 98 - 107 mmol/L [facility] Gluc Whole Bld 304 (H) 65 - 199 mg/dL [facility] Comment: Diabetes: >=200 mg/dL plus symp toms. Lactate WB 8.2 (Critical) 0.5 - 2.2 mmol/L [facility] Comment: Noted by brass and wind instrument repairer. FIO2 Art 40 % [facility] PF Ratio Art 235 [facility] Specimen Anatomical Collection Method Collection Time Receive d Time (Source) Location / / Volume Laterality Blood specimen 07/07/2017 10:04 7 (specimen) PM EST 10:04 PM EST Daphne Shahid MD CHEMISTRY ORDERABLES Performing Organization Address City/[facility]/ZIP Code Phon e Number [address] (ABNORMAL) Hemoglobin (07/07/2017 10:00 PM EST) P athologist Signature Hemoglobin 12.8 (L) 13.7 - [facility] 16.5 gm/dL [facility] Specimen Anatomical Collection Method Collection Time Receive d Time (Source) Location / / Volume Laterality Blood specimen 07/07/2017 10:00 7 (specimen) PM EST 10:13 PM EST Resulting Agency Comment Spec In Lab Yuan Webber MD HEMATOLOGY ORDERABLES Performing Organization Address City/[facility]/[place] [address] (ABNORMAL) Potassium (07/07/2017 10:00 PM EST) P athologist Signature Potassium 3.4 (L) 3.5 - 5.0 [facility] mmol/L [facility] Comment: Please note: ??Patients with [...] Organization Address City/State/[place] [address] (ABNORMAL) POCT Glucose (07/07/2017 8:49 PM EST) P athologist Signature POC Glucose 241 (H) 65 - 199 [facility] mg/dL [facility] Comment: Supplemental ranges: <140 mg/dL before meals <180 mg/dL all other times of the day Specimen Anatomical Collection Method Collection Time Receive d Time (Source) Location / / Volume Laterality Blood specimen 07/07/2017 8:49 PM 017 8:49 (specimen) EST PM EST Daphne Shahid MD POINT OF CARE TEST ORDERABLE S Performing Organization Address City/[facility]/[place] [address] Prepare Albumin 5% in 250 mL (07/07/2017 8:03 PM EST) athologist Signature Dispensed? Yes [facility] Specimen Anatomical Collection Method Collection Time Receive d Time (Source) Location / / Volume Laterality Blood specimen No Charge / 07/07/2017 8:03 PM 017 8:04 (specimen) Unknown EST PM EST Resulting Agency Comment Spec In Lab Michael BROWN BLOOD BANK ORDERABLES Performing Organization Address City/[facility]/[place] [address] EKG 12 Lead (07/07/2017 7:17 PM EST) Component Value Ref Range Test Analysis Performed Pathologis t Method Time At Signature Ventricular rate 75 BPM MUSE SYSTEM Atrial Rate 75 BPM MUSE SYSTEM P-R Interval 168 ms MUSE SYSTEM QRS Duration 104 ms MUSE SYSTEM Q-T Interval 462 ms MUSE SYSTEM QTC Calculated 515 ms MUSE SYSTEM (Bezet) Calculated P [place] 52 degrees MUSE SYSTEM Calculated R [place] -40 degrees MUSE SYSTEM Calculated T [place] 39 degrees MUSE SYSTEM INTERPRETATION Normal sinus [...] athologist Signature pH Art 7.21 7.35 - [facility] (Critical) 7.45 [facility] Comment: Noted by brass and wind instrument repairer. pCO2 Art 50 (H) 35 - 45 mmHg [facility] pO2 Art 238 (H) 85 - [address] [facility] HCO3 Art 19.8 (L) 20.0 - 26.0 mmol/L [facility] BE Art -8.1 (L) -3.0 - 3.0 mmol/L [facility] Hgb Blood Gas 12.8 (L) 13.7 - 16.5 gm/dL [facility] O2HB Art 97.5 (H) 94.0 - 97.0 % [facility] COHB Art 0.5 % [facility] Comment: Nonsmokers: 0.5-1.5% COHB Smokers: Variable, but usually less than 10% Toxic: 20-30% COHB Lethal: Greater than 60% COHB METHB Art 0.7 <=1.5 % [facility] Na Whole Blood 140 135 - 145 mmol/L [facility] K Whole Blood 3.0 (Critical) 3.5 - 5.0 mmol/L [facility] Comment: Noted by brass and wind instrument repairer. Please note: Patients with WBC >100,000 may have falsely elevated Potassium levels. Contact the Clinical Chemistry L aboratory if there are any questions. ICa Whole Blood 1.07 (L) 1.15 - 1.33 mmol/L [facility] Comment: Note: ??Total bilirubin higher than 20 m g/dL may lead to falsely low ionized calcium. CL Whole Blood 107 98 - 107 mmol/L [facility] Gluc Whole Bld 270 (H) 65 - 199 mg/dL [facility] Comment: Diabetes: >=200 mg/dL plus symp toms. Lactate WB 4.9 (Critical) 0.5 - 2.2 mmol/L [facility] Comment: Noted by brass and wind instrument repairer. FIO2 Art 100 % [facility] PF Ratio Art 238 [facility] Specimen Anatomical Collection Method Collection Time Receive d Time (Source) Location / / Volume Laterality Blood specimen 07/07/2017 6:57 PM 017 6:57 (specimen) EST PM EST Daphne Shahid MD CHEMISTRY ORDERABLES Performing Organization Address City/State/[place] [address] (ABNORMAL) BLOOD GAS 2 ARTERIAL (07/07/2017 5:31 PM EST) athologist Signature pH Art 7.29 7.35 - [facility] (Critical) 7.45 [facility] Comment: Noted by brass and wind instrument repairer. pCO2 Art 48 (H) 35 - 45 mmHg [facility] pO2 Art 137 (H) 85 - [address] [facility] HCO3 Art 22.4 20.0 - 26.0 mmol/L [facility] BE Art -4.3 (L) -3.0 - 3.0 mmol/L [facility] Hgb Blood Gas 10.0 (L) 13.7 - 16.5 gm/dL [facility] O2HB Art 97.3 (H) 94.0 - 97.0 % [facility] COHB Art 0.3 % [facility] Comment: Nonsmokers: 0.5-1.5% COHB Smokers: Variable, but usually less than 10% Toxic: 20-30% COHB Lethal: Greater than 60% COHB METHB Art 0.3 <=1.5 % [facility] Na Whole Blood 132 (L) 135 - 145 mmol/L [facility] K Whole Blood 4.0 3.5 - 5.0 mmol/L [facility] Comment: Please note: Patients with WBC >100,000 may have falsely elevated Potassium levels. Contact the Clinical Chemistry L aboratory if there are any questions. ICa Whole Blood 1.14 (L) 1.15 - 1.33 mmol/L [facility] Comment: Note: ??Total bilirubin higher than 20 m g/dL may lead to falsely low ionized calcium. CL Whole Blood 105 98 - 107 mmol/L [facility] Gluc Whole Bld 293 (H) 65 - 199 mg/dL [facility] Comment: Diabetes: >=200 mg/dL plus symp toms. Lactate WB 3.1 (H) 0.5 - 2.2 mmol/L [facility] Specimen Anatomical Collection Method Collection Time Receive d Time (Source) Location / / Volume Laterality Blood specimen 07/07/2017 5:31 PM 017 5:31 (specimen) EST PM EST Daphne Shahid MD CHEMISTRY ORDERABLES Performing Organization Address City/[facility]/ZIP Code Phon e Number [address] Fibrinogen (07/07/2017 5:30 PM EST) P athologist Signature Fibrinogen 224 180 - 510 [facility] mg/dL [facility] Comment: Called by: JEET, Read [...] Perez MD HEMATOLOGY ORDERABLES Performing Organization Address City/[facility] Phon e Number [address] APTT (07/07/2017 5:30 PM EST) P athologist Signature PTT 30 25 - 35 sec [facility] Comment: The recommended therapeutic range for fu ll dose, unfractionated heparin at [facility] is 80 ? 114 seconds. The use [...] Perez MD HEMATOLOGY ORDERABLES Performing Organization Address City/[facility]/[place] [address] (ABNORMAL) Prothrombin Time (07/07/2017 5:30 PM EST) P athologist Signature PT 19.0 (H) 11.8 - 14.0 [facility] LABORATORY INR 1.6 (H) 0.9 [...] Perez MD HEMATOLOGY ORDERABLES Performing Organization Address City/[facility]/[place] [address] (ABNORMAL) Hemogram (07/07/2017 5:30 PM EST) P athologist Signature WBC 19.6 (H) 4.0 - 9.5 [facility] x10(3)/[facility] LABORATORY RBC 3.08 (L) 4.58 - [facility] 5.54 [facility] x10(6)/[facility] LABORATORY Hemoglobin 9.2 (L) 13.7 - [facility] 16.5 gm/dL [facility] Hematocrit 28.0 (L) 40.5 - [facility] 48.5 % [facility] Comment: This result has been called to MONICA MORAN by DONALD GROSSMAN on 07 07 2017 at 1759, and has been read back. MCV 90.9 82.9 - 93.1 [facility] LABORATORY MCH 29.9 27.5 - 32.1 pg [facility] MCHC 32.9 32.0 - 35.7 gm/dL [facility] Platelets 155 145 - 357 x10(3)/[facility] LABORATORY RDWSD 46.5 (H) 36.0 - 45.0 [facility] LABORATORY RDWCV 14.1 (H) 11.4 - 13.8 % [facility] MPV 9.5 7.6 - 12.9 [facility] LABORATORY nRBC % Auto 0.0 % [facility] nRBC Abs Auto 0.000 0.000 - 0.000 x10(3)/[facility] LABORATORY Specimen Anatomical Collection Method Collection Time Receive d Time (Source) Location / / Volume Laterality Blood specimen 07/07/2017 5:30 PM 017 5:34 (specimen) EST PM EST Resulting Agency Comment Spec In Lab Yifan Perez MD HEMATOLOGY ORDERABLES Performing Organization Address City/State/[place] [address] Prepare Platelets, Apheresis (07/07/2017 5:00 PM EST) P athologist Signature Dispensed? Yes [facility] Specimen Anatomical Collection Method Collection Time Receive d Time (Source) Location / / Volume Laterality Blood specimen 07/07/2017 5:00 PM 017 4:58 (specimen) EST PM EST Daphne Shahid MD BLOOD BANK ORDERABLES Performing Organization Address City/State/[place] [address] Platelet count (07/07/2017 4:55 PM EST) athologist Signature Platelets 177 145 - 357 [facility] x10(3)/[facility] LABORATORY Plat Immature 1.5 0.0 - 7.4 [facility] % % [facility] Comment: Limitation of the Immature Platelet Frac tion (IPF)-May be less reliable when the platelet count is less than 24u493/u L due to statistical imprecision. The IPF [...] in a decreased state of production. References: [employer] The Clinical Value of the Immature Platelet Fraction (IPF) in Cell Recovery Document Number [id number] 12/2010 [employer] The Role of the Imm ature Platelet Fraction (IPF) in the Differential Diagnosis of Thrombocytopen ia, Document [id number] V012/04/13 P0514 Specimen Anatomical Collection Method Collection Time Receive d Time (Source) Location / / Volume Laterality Blood specimen 07/07/2017 4:55 PM 017 5:13 (specimen) EST PM EST Resulting Agency Comment Spec In Lab Daphne Shahid MD HEMATOLOGY ORDERABLES Performing Organization Address City/State/[place] [address] [facility] [address] Drive (ABNORMAL) Hemoglobin and Hematocrit, blood (07/07/2017 4:55 PM EST) athologist Signature Hemoglobin 9.1 (L) 13.7 - 16.5 [facility] gm/dL [facility] Comment: This result has been called to MALKA MORAN by DONALD GROSSMAN on 07 07 2017 at 1734, and has been read back. Hematocrit 26.6 (L) 40.5 - 48.5 % [facility] Comment: This result has been [...] Organization Address City/State/[place] [address] (ABNORMAL) BLOOD GAS 2 ARTERIAL (07/07/2017 4:38 PM EST) Analysis Performed At Patho logist Time Signature pH Art 7.37 7.35 - [facility] 7.45 [facility] pCO2 Art 44 35 - 45 [facility] mmHg [facility] pO2 Art 322 (H) 85 - 104 [facility] LABORATORY HCO3 Art 24.9 20.0 - [facility] 26.0 [facility] mmol/L [facility] BE Art -0.4 -3.0 - 3.0 [facility] mmol/L [facility] Hgb Blood Gas 10.1 (L) 13.7 - [facility] 16.5 gm/dL [facility] O2HB Art 98.7 (H) 94.0 - [facility] 97.0 % [facility] COHB Art 0.1 % [facility] Comment: Nonsmokers: 0.5-1.5% COHB Smokers: Variable, but usually less than 10% Toxic: 20-30% COHB Lethal: Greater than 60% COHB METHB Art 0.3 <=1.5 % [facility] Na Whole Blood 130 (L) 135 - 145 mmol/L [facility] K Whole Blood 5.7 (H) 3.5 - 5.0 mmol/L [facility] Comment: Please note: Patients with WBC >100,000 may have falsely elevated Potassium levels. Contact the Clinical Chemistry L aboratory if there are any questions. ICa Whole Blood 0.89 (Critical) 1.15 - 1.33 mmol/L [facility] Comment: Noted by brass and wind instrument repairer. Note: ??Total bilirubin higher than 20 m g/dL may lead to falsely low ionized calcium. CL Whole Blood 101 98 - 107 mmol/L [facility] Gluc Whole Bld 295 (H) 65 - 199 mg/dL [facility] Comment: Diabetes: >=200 mg/dL plus symp toms. Lactate WB 1.7 0.5 - 2.2 mmol/L [facility] Specimen Anatomical Collection Method Collection Time Receive d Time (Source) Location / / Volume Laterality Blood specimen 07/07/2017 4:38 PM 017 4:38 (specimen) EST PM EST Daphne Shahid MD CHEMISTRY ORDERABLES Performing Organization Address City/State/[place] [address] (ABNORMAL) BLOOD GAS 2 VENOUS (07/07/2017 4:06 PM EST) Analysis Performed At Patho logist Time Signature pH Cody 7.31 (L) 7.32 - [facility] 7.42 [facility] pCO2 Cody 47 41 - 51 [facility] LABORATORY pO2 Cody 53 (H) 25 - 40 [facility] LABORATORY HCO3 Cody 22.7 mmol/L [facility] BE Cody -3.7 mmol/L [facility] Hgb Blood Gas 10.2 (L) 13.7 - [facility] 16.5 gm/dL [facility] O2HB Cody 81.0 % [facility] COHB Cody 1.0 % [facility] Comment: Nonsmokers: 0.5-1.5% COHB Smokers: Variable, but usually less than 10% Toxic: 20-30% COHB Lethal: Greater than 60% COHB METHB Cody 0.3 <=1.5 % [facility] Na Whole Blood 132 (L) 135 - 145 mmol/L [facility] K Whole Blood 5.3 (H) 3.5 - 5.0 mmol/L [facility] Comment: Please note: Patients with WBC >100,000 may have falsely elevated Potassium levels. Contact the Clinical Chemistry L aboratory if there are any questions. ICa Whole Blood 0.90 (Critical) 1.15 - 1.33 mmol/L [facility] Comment: Noted by brass and wind instrument repairer. Note: ??Total bilirubin higher than 20 m g/dL may lead to falsely low ionized calcium. CL Whole Blood 100 98 - 107 mmol/L [facility] Gluc Whole Bld 231 (H) 65 - 199 mg/dL [facility] Comment: Diabetes: >=200 mg/dL plus symp toms Lactate WB 1.1 0.5 - 2.2 mmol/L [facility] BGas Source Venous [facility] Specimen Anatomical Collection Method Collection Time Receive d Time (Source) Location / / Volume Laterality Blood specimen 07/07/2017 4:06 PM 017 4:06 (specimen) EST PM EST Daphne Shahid MD CHEMISTRY ORDERABLES Performing Organization Address City/State/[place] [address] (ABNORMAL) BLOOD GAS 2 ARTERIAL (07/07/2017 4:05 PM EST) Analysis Performed At Patho logist Time Signature pH Art 7.36 7.35 - [facility] 7.45 [facility] pCO2 Art 40 35 - 45 [facility] mmHg [facility] pO2 Art 282 (H) 85 - 104 [facility] mmHg [facility] HCO3 Art 22.1 20.0 - [facility] 26.0 [facility] mmol/L [facility] BE Art -3.4 (L) -3.0 - 3.0 [facility] mmol/L [facility] Hgb Blood Gas 10.2 (L) 13.7 - [facility] 16.5 gm/dL [facility] O2HB Art 98.4 (H) 94.0 - [facility] 97.0 % [facility] COHB Art 0.3 % [facility] Comment: Nonsmokers: 0.5-1.5% COHB Smokers: Variable, but usually less than 10% Toxic: 20-30% COHB Lethal: Greater than 60% COHB METHB Art 0.3 <=1.5 % [facility] Na Whole Blood 131 (L) 135 - 145 mmol/L [facility] K Whole Blood 5.4 (H) 3.5 - 5.0 mmol/L [facility] Comment: Please note: Patients with WBC >100,000 may have falsely elevated Potassium levels. Contact the Clinical Chemistry L aboratory if there are any questions. ICa Whole Blood 0.86 (Critical) 1.15 - 1.33 mmol/L [facility] Comment: Noted by brass and wind instrument repairer. Note: ??Total bilirubin higher than 20 m g/dL may lead to falsely low ionized calcium. CL Whole Blood 101 98 - 107 mmol/L [facility] Gluc Whole Bld 260 (H) 65 - 199 mg/dL [facility] Comment: Diabetes: >=200 mg/dL plus symp toms. Lactate WB 1.4 0.5 - 2.2 mmol/L [facility] Specimen Anatomical Collection Method Collection Time Receive d Time (Source) Location / / Volume Laterality Blood specimen 07/07/2017 4:05 PM 017 4:05 (specimen) EST PM EST Daphne Shahid MD CHEMISTRY ORDERABLES Performing Organization Address City/State/[place] [address] (ABNORMAL) BLOOD GAS 2 ARTERIAL (07/07/2017 2:29 PM EST) Analysis Performed At Patho logist Time Signature pH Art 7.43 7.35 - [facility] 7.45 [facility] pCO2 Art 36 35 - 45 [facility] LABORATORY pO2 Art 221 (H) 85 - 104 [facility] LABORATORY HCO3 Art 23.2 20.0 - [facility] 26.0 [facility] mmol/L HOSPITAL LABORATORY BE Art -1.2 -3.0 - 3.0 [facility] mmol/L [facility] Hgb Blood Gas 13.9 13.7 - [facility] 16.5 gm/dL [facility] O2HB Art 97.8 (H) 94.0 - [facility] 97.0 % [facility] COHB Art 1.1 % [facility] Comment: Nonsmokers: 0.5-1.5% COHB Smokers: Variable, but usually less than 10% Toxic: 20-30% COHB Lethal: Greater than 60% COHB METHB Art 0.3 <=1.5 % [facility] Na Whole Blood 139 135 - 145 mmol/L [facility] K Whole Blood 4.0 3.5 - 5.0 mmol/L [facility] Comment: Please note: Patients with WBC >100,000 may have falsely elevated Potassium levels. Contact the Clinical Chemistry L aboratory if there are any questions. ICa Whole Blood 1.11 (L) 1.15 - 1.33 mmol/L [facility] Comment: Note: ??Total bilirubin higher than 20 m g/dL may lead to falsely low ionized calcium. CL Whole Blood 104 98 - 107 mmol/L [facility] Gluc Whole Bld 184 65 - 199 mg/dL [facility] Comment: Diabetes: >=200 mg/dL plus symp toms. Lactate WB 1.5 0.5 - 2.2 mmol/L [facility] Specimen Anatomical Collection Method Collection Time Receive d Time (Source) Location / / Volume Laterality Blood specimen 07/07/2017 2:29 PM 017 2:29 (specimen) EST PM EST Daphne Shahid MD CHEMISTRY ORDERABLES Performing Organization Address City/State/[place] [address] Prepare Coag Factors (Non-Hemophilia) (07/07/2017 1:25 PM EST) P athologist Signature Dispensed? Yes [facility] Specimen Anatomical Collection Method Collection Time Receive d Time (Source) Location / / Volume Laterality Blood specimen 07/07/2017 1:25 PM 017 1:21 (specimen) EST PM EST Daphne Shahid MD BLOOD BANK ORDERABLES Performing Organization Address City/State/ZIP Code Phon e Number [address] Prepare RBC (07/07/2017 1:10 PM EST) P athologist Signature Dispensed? Yes [facility] Specimen Anatomical Collection Method Collection Time Receive d Time (Source) Location / / Volume Laterality Blood specimen 07/07/2017 1:10 PM 017 1:05 (specimen) EST PM EST Daphne Shahid MD BLOOD BANK ORDERABLES Performing Organization Address City/[facility]/ZIP Code Phon e Number [address] POCT Glucose (07/07/2017 11:56 AM EST) P athologist Signature POC Glucose 188 65 - 199 [facility] Comment: Supplemental ranges: <140 mg/dL before meals <180 mg/dL all other times of the day Specimen Anatomical Collection Method Collection Time Receive d Time (Source) Location / / Volume Laterality Blood specimen 07/07/2017 11:56 7 (specimen) AM EST 11:56 AM EST Daphne Shahid MD POINT OF CARE TEST ORDERABLE S Performing Organization Address City/[facility]/[place] [address] POCT Glucose (07/07/2017 11:05 AM EST) P athologist Signature POC Glucose 168 65 - 199 [facility] SU mg/dL [facility] Comment: Supplemental ranges: <140 mg/dL before meals <180 mg/dL all other times of the day Specimen Anatomical Collection Method Collection Time Receive d Time (Source) Location / / Volume Laterality Blood specimen 07/07/2017 11:05 7 (specimen) AM EST 11:05 AM EST Daphne Shahid MD POINT OF CARE TEST ORDERABLE S Performing Organization Address City/State/ZIP [place] [address] POCT Glucose (07/07/2017 10:02 AM EST) athologist Signature POC Glucose 191 65 - 199 [place] mg/dL [facility] Comment: Supplemental ranges: <140 mg/dL before meals <180 mg/dL all other times of the day Specimen Anatomical Collection Method Collection Time Receive d Time (Source) Location / / Volume Laterality Blood specimen 07/07/2017 10:02 7 (specimen) AM EST 10:02 AM EST Daphne Shahid MD POINT OF CARE TEST ORDERABLE S Performing Organization Address City/State/[place] [address] POCT Glucose (07/07/2017 7:53 AM EST) athologist Signature POC Glucose 178 65 - 199 [facility] SU mg/dL [facility] Comment: Supplemental ranges: <140 mg/dL before meals <180 mg/dL all other times of the day Specimen Anatomical Collection Method Collection Time Receive d Time (Source) Location / / Volume Laterality Blood specimen 07/07/2017 7:53 AM 017 7:53 (specimen) EST AM EST Daphne Shahid MD POINT OF CARE TEST ORDERABLE S Performing Organization Address City/State/[place] [address] POCT Glucose (07/07/2017 7:03 AM EST) athologist Signature POC Glucose 188 65 - 199 [place] mg/dL [facility] Comment: Supplemental ranges: <140 mg/dL before meals <180 mg/dL all other times of the day Specimen Anatomical Collection Method Collection Time Receive d Time (Source) Location / / Volume Laterality Blood specimen 07/07/2017 7:03 AM 017 7:03 (specimen) EST AM EST Daphne Shahid MD POINT OF CARE TEST ORDERABLE S Performing Organization Address City/State/[place] [address] (ABNORMAL) POCT Glucose (07/07/2017 6:17 AM EST) athologist Signature POC Glucose 207 (H) 65 - 199 [facility] mg/dL [facility] Comment: Supplemental ranges: <140 mg/dL before meals <180 mg/dL all other times of the day Specimen Anatomical Collection Method Collection Time Receive d Time (Source) Location / / Volume Laterality Blood specimen 07/07/2017 6:17 AM 017 6:17 (specimen) EST AM EST Daphne Shahid MD POINT OF CARE TEST ORDERABLE S Performing Organization Address City/State/[place] [address] [facility] [address] Differential, Automated (07/07/2017 5:15 AM EST) athologist Signature Neutrophils % 69.7 % [facility] Neutr Abs (ANC) 5.32 1.70 - [facility] 6.10 [facility] x10(3)/[facility] LABORATORY Lymphocytes % 16.3 % [facility] Lymphocytes Abs 1.2 0.9 - 3.2 [facility] x10(3)/[facility] LABORATORY Monocytes % 10.5 % [facility] Monocyte Abs 0.8 0.3 - 0.9 [facility] x10(3)/[facility] LABORATORY Eosinophils % 2.5 % [facility] Eosinophils Abs 0.2 0.0 - 0.4 [facility] x10(3)/[facility] LABORATORY Basophils % 0.7 % [facility] Basophils Abs 0.0 0.0 - 0.1 [facility] x10(3)/[facility] LABORATORY Immature Gran % 0.30 % [facility] Comment: Immature granulocytes(IG's)percentage an d absolute count will include metamyelocytes, myelocytes, and promyelo cytes. Blood smears from CBCs yielding IG's will be scanned manually for concor dance. If this scan disagrees with the automated IG or if promyelocytes are not ed, a manual differential will be performed. Melisa Gran Abs 0.02 0.00 - 0.04 x10(3)/[facility]ORY Specimen Anatomical Collection Method Collection Time Receive d Time (Source) Location / / Volume Laterality Blood specimen 07/07/2017 5:15 AM 017 5:34 (specimen) EST AM EST Resulting Agency Comment Spec In Lab Daphne Shahid MD HEMATOLOGY ORDERABLES Performing Organization Address City/State/[place] [address] (ABNORMAL) Hemogram (07/07/2017 5:15 AM EST) Analysis Performed At Patho logist Time Signature WBC 7.6 4.0 - 9.5 [facility] x10(3)/[facility] LABORATORY RBC 4.82 4.58 - [facility] 5.54 [facility] x10(6)/[facility] LABORATORY Hemoglobin 14.4 13.7 [facility] 16.5 gm/dL [facility] Hematocrit 42.1 40.5 [facility] 48.5 % [facility] MCV 87.3 82.9 [facility] 93.1 [facility] LABORATORY MCH 29.9 27.5 - [facility] 32.1 pg [facility] MCHC 34.2 32.0 - [facility] 35.7 gm/dL [facility] Platelets 188 145 - 357 [facility] x10(3)/[facility] RDWSD 45.1 (H) 36.0 - [facility] 45.0 [facility] LABORATORY RDWCV 14.3 (H) 11.4 - [facility] SU 13.8 % [facility] MPV 9.4 7.6 - 12.9 [facility] LABORATORY nRBC % Auto 0.0 % [facility] nRBC Abs Auto 0.000 0.000 - [facility] 0.000 [facility] x10(3)/[facility] LABORATORY Specimen Anatomical Collection Method Collection Time Receive d Time (Source) Location / / Volume Laterality Blood specimen 07/07/2017 5:15 AM 017 5:34 (specimen) EST AM EST Resulting Agency Comment Spec In Lab Daphne Shahid MD HEMATOLOGY ORDERABLES Performing Organization Address City/[facility]/[place] [address] (ABNORMAL) APTT (07/07/2017 5:15 AM EST) athologist Signature PTT 69 (H) 25 - 35 sec [facility] Comment: The recommended therapeutic range for fu ll dose, unfractionated heparin at [facility] is 80 ? 114 seconds. The use [...] Shahid MD HEMATOLOGY ORDERABLES Performing Organization Address City/[facility]/[place] [address] Magnesium (07/07/2017 5:15 AM EST) athologist Signature Magnesium 0.94 0.69 - 1.07 [facility] mmol/L [facility] Specimen Anatomical Collection Method Collection Time Receive d Time (Source) Location / / Volume Laterality Blood specimen 07/07/2017 5:15 AM 017 5:34 (specimen) EST AM EST Resulting Agency Comment Spec In Lab Daphne Shahid MD CHEMISTRY ORDERABLES Performing Organization Address City/[facility]/[place] [address] (ABNORMAL) Basic Metabolic Panel (non-fasting) (07/07/2017 5:15 AM EST) P athologist Signature Glucose Lvl 203 (H) 65 - 199 [facility] mg/dL [facility] Comment: Diabetes: >=200 mg/dL plus symp toms BUN 15 10 - 20 mg/dL [facility] Creatinine 1.09 0.80 - 1.50 mg/dL [facility] Sodium 142 135 - 145 mmol/L [facility] Potassium 4.4 3.5 - 5.0 mmol/L [facility] Comment: Please note: ??Patients with WBC >100,00 0 may have falsely elevated Potassium levels. ??For accurate Potassium quantif ication in these patients send serum separator tube (gold top) for subsequent determinations. ??Contact the Clinical Chemistry Laboratory if there are any qu estions. Chloride 102 98 - 107 mmol/L [facility] CO2 26 22 - 31 mmol/L [facility] Anion Gap 14 5 - 15 mmol/L [facility] Calcium 8.6 8.5 - 10.5 mg/dL [facility] Estimated GFR >60 >=60 [facility] Comment: The reported eGFR should be multiplied b y 1.2 for patients. The MDRD is not an appropriate measure o f renal function for patients with body mass extremes or in patients with acute kidney failure. http://[employer]/DHnkdep http://[employer]/DHMCnkf Specimen Anatomical Collection Method Collection Time Receive d Time (Source) Location / / Volume Laterality Blood specimen 07/07/2017 5:15 AM 017 5:34 (specimen) EST AM EST Resulting Agency Comment Spec In Lab Daphne Shahid MD CHEMISTRY ORDERABLES Performing Organization Address City/State/[place] [address] (ABNORMAL) Cardiac Enzymes (LEB/CGP) (07/07/2017 5:15 AM EST) P athologist Signature Troponin-T 2.07 (H) 0.00 - [facility] 0.00 ng/mL [facility] Comment: The 99th percentile for Troponin T is le ss than 0.01 ng/mL, any detectable cTnT concentration using this assay should be considered elevated. According to the third universal definit ion of myocardial infarction the following criteria with a clinical prese ntation consistent with acute myocardial ischemia meets the diagnosis for a myocardial infarction ([place]). Detection of a rise and/or fall of [...] additional sample may be indicated. Reference: Third Wharton Definition of Myocardial Infarction. Journal of the [place] [employer] 2012;60:1581-98 CK, Total 88 0 - 200 unit/L [facility] Specimen Anatomical Collection Method Collection Time Receive d Time (Source) Location / / Volume Laterality Blood specimen 07/07/2017 5:15 AM 017 5:34 (specimen) EST AM EST Resulting Agency Comment Spec In Lab Daphne Shahid MD CHEMISTRY ORDERABLES Performing Organization Address City/[facility]/ZIP Code Phon e Number [address] POCT Glucose (07/07/2017 5:01 AM EST) athologist Signature POC Glucose 182 65 - [address] [address]dL [facility] Comment: Supplemental ranges: <140 mg/dL before meals <180 mg/dL all other times of the day Specimen Anatomical Collection Method Collection Time Receive d Time (Source) Location / / Volume Laterality Blood specimen 07/07/2017 5:01 AM 017 5:01 (specimen) EST AM EST Daphne Shahid MD POINT OF CARE TEST ORDERABLE S Performing Organization Address City/[facility] [place] [address] POCT Glucose (07/07/2017 4:08 AM EST) athologist Signature POC Glucose 199 65 - [address] [address] mg/dL [facility] Comment: Supplemental ranges: <140 mg/dL before meals <180 mg/dL all other times of the day Specimen Anatomical Collection Method Collection Time Receive d Time (Source) Location / / Volume Laterality Blood specimen 07/07/2017 4:08 AM 017 4:08 (specimen) EST AM EST Daphne Shahid MD POINT OF CARE TEST ORDERABLE S Performing Organization Address City/State/[place] [address] POCT Glucose (07/07/2017 3:03 AM EST) athologist Signature POC Glucose 188 65 - 199 [place] [facility] mg/dL [facility] Comment: Supplemental ranges: <140 mg/dL before meals <180 mg/dL all other times of the day Specimen Anatomical Collection Method Collection Time Receive d Time (Source) Location / / Volume Laterality Blood specimen 07/07/2017 3:03 AM 017 3:03 (specimen) EST AM EST Daphne Shahid MD POINT OF CARE TEST ORDERABLE S Performing Organization Address City/State/[place] [address] (ABNORMAL) POCT Glucose (07/07/2017 2:08 AM EST) athologist Signature POC Glucose 200 (H) 65 - 199 [facility] Comment: Supplemental ranges: <140 mg/dL before meals <180 mg/dL all other times of the day Specimen Anatomical Collection Method Collection Time Receive d Time (Source) Location / / Volume Laterality Blood specimen 07/07/2017 2:08 AM 017 2:08 (specimen) EST AM EST Daphne Shahid MD POINT OF CARE TEST ORDERABLE S Performing Organization Address City/State/ZIP Code Phon e Number [address] (ABNORMAL) POCT Glucose (07/07/2017 1:31 AM EST) athologist Signature POC Glucose 209 (H) 65 - 199 [place] [facility] mg/dL [facility] Comment: Supplemental ranges: <140 mg/dL before meals <180 mg/dL all other times of the day Specimen Anatomical Collection Method Collection Time Receive d Time (Source) Location / / Volume Laterality Blood specimen 07/07/2017 1:31 AM 017 1:31 (specimen) EST AM EST Daphne Shahid MD POINT OF CARE TEST ORDERABLE S Performing Organization Address City/State/[place] [address] XR Chest PA or [...] ORDERABLES POCT Glucose (07/07/2017 12:07 AM EST) P athologist Signature POC Glucose 161 65 - 199 [facility] mg/dL [facility] Comment: Supplemental ranges: <140 mg/dL before meals <180 mg/dL all other times of the day Specimen Anatomical Collection Method Collection Time Receive d Time (Source) Location / / Volume Laterality Blood specimen 07/07/2017 12:07 7 (specimen) AM EST 12:07 AM EST Daphne Shahid MD POINT OF CARE TEST ORDERABLE S Performing Organization Address City/State/[place] [address] (ABNORMAL) APTT (07/07/2017 12:00 AM EST) athologist Signature PTT 103 (H) 25 - 35 sec [facility] Comment: The recommended therapeutic range for fu ll dose, unfractionated heparin at [facility] is 80 ? 114 seconds. The use [...] Shahid MD HEMATOLOGY ORDERABLES Performing Organization Address City/[facility]/[place] [address] POCT Glucose (07/06/2017 9:55 PM EST) athologist Signature POC Glucose 109 65 - 199 [facility]dL [facility] Comment: Supplemental ranges: <140 mg/dL before meals <180 mg/dL all other times of the day Specimen Anatomical Collection Method Collection Time Receive d Time (Source) Location / / Volume Laterality Blood specimen 07/06/2017 9:55 PM 017 9:55 (specimen) EST PM EST Daphne Shahid MD POINT OF CARE TEST ORDERABLE S Performing Organization Address City/[facility]/[place] [address] POCT Glucose (07/06/2017 9:04 PM EST) athologist Signature POC Glucose 120 65 - 199 [facility]dL [facility] Comment: Supplemental ranges: <140 mg/dL before meals <180 mg/dL all other times of the day Specimen Anatomical Collection Method Collection Time Receive d Time (Source) Location / / Volume Laterality Blood specimen 07/06/2017 9:04 PM 017 9:04 (specimen) EST PM EST Daphne Shahid MD POINT OF CARE TEST ORDERABLE S Performing Organization Address City/[facility]/[place] [address] POCT Glucose (07/06/2017 7:45 PM EST) athologist Signature POC Glucose 158 65 - [address]/dL [facility] Comment: Supplemental ranges: <140 mg/dL before meals <180 mg/dL all other times of the day Specimen Anatomical Collection Method Collection Time Receive d Time (Source) Location / / Volume Laterality Blood specimen 07/06/2017 7:45 PM 017 7:45 (specimen) EST PM EST Daphne Shahid MD POINT OF CARE TEST ORDERABLE S Performing Organization Address City/[facility]/[place] [address] Potassium (07/06/2017 7:40 PM EST) athologist Signature Potassium 3.9 3.5 - 5.0 [facility] mmol/L [facility] Comment: Please note: ??Patients with [...] Shahid MD CHEMISTRY ORDERABLES Performing Organization Address City/[facility]/[place] [address] (ABNORMAL) Cardiac Enzymes (LEB/CGP) (07/06/2017 7:40 PM EST) athologist Signature Troponin-T 2.27 (H) 0.00 - [facility] 0.[facility] ng/mL [facility] Comment: The 99th percentile for Troponin T is le ss than 0.01 ng/mL, any detectable cTnT concentration using this assay should be considered elevated. According to the third universal definit ion of myocardial infarction the following criteria with a clinical prese ntation consistent with acute myocardial ischemia meets the diagnosis for a myocardial infarction ([place]). Detection of a rise and/or fall of [...] additional sample may be indicated. Reference: Third Wharton Definition of Myocardial Infarction. Journal of the [place] [employer] 2012;60:1581-98 CK, Total 93 0 - 200 unit/L [facility] Specimen Anatomical Collection Method Collection Time Receive d Time (Source) Location / / Volume Laterality Blood specimen 07/06/2017 7:40 PM 017 7:52 (specimen) EST PM EST Resulting Agency Comment Spec In Lab Daphne Shahid MD CHEMISTRY ORDERABLES Performing Organization Address City/State/[place] [address] (ABNORMAL) POCT Glucose (07/06/2017 7:13 PM EST) athologist Signature POC Glucose 200 (H) 65 - [address] [address] mg/dL [facility] Comment: Supplemental ranges: <140 mg/dL before meals <180 mg/dL all other times of the day Specimen Anatomical Collection Method Collection Time Receive d Time (Source) Location / / Volume Laterality Blood specimen 07/06/2017 7:13 PM 017 7:13 (specimen) EST PM EST Daphne Shahid MD POINT OF CARE TEST ORDERABLE S Performing Organization Address City/[facility]/[place] [address] (ABNORMAL) APTT (07/06/2017 6:15 PM EST) athologist Signature PTT 94 (H) 25 - 35 sec [facility] Comment: The recommended therapeutic range for fu ll dose, unfractionated heparin at [facility] is 80 ? 114 seconds. The use [...] Shahid MD HEMATOLOGY ORDERABLES Performing Organization Address City/[facility]/[place] [address] (ABNORMAL) POCT Glucose (07/06/2017 6:03 PM EST) athologist Signature POC Glucose 236 (H) 65 - 199 [facility]dL [facility] Comment: Supplemental ranges: <140 mg/dL before meals <180 mg/dL all other times of the day Specimen Anatomical Collection Method Collection Time Receive d Time (Source) Location / / Volume Laterality Blood specimen 07/06/2017 6:03 PM 017 6:03 (specimen) EST PM EST Daphne Shahid MD POINT OF CARE TEST ORDERABLE S Performing Organization Address City/[facility]/[place] [address] (ABNORMAL) POCT Glucose (07/06/2017 5:01 PM EST) athologist Signature POC Glucose 235 (H) 65 - 199 [place] [facility] mg/dL [facility] Comment: Supplemental ranges: <140 mg/dL before meals <180 mg/dL all other times of the day Specimen Anatomical Collection Method Collection Time Receive d Time (Source) Location / / Volume Laterality Blood specimen 07/06/2017 5:01 PM 017 5:01 (specimen) EST PM EST Daphne Shahid MD POINT OF CARE TEST ORDERABLE S Performing Organization Address City/State/[place] [address] (ABNORMAL) POCT Glucose (07/06/2017 4:06 PM EST) P athologist Signature POC Glucose 202 (H) 65 - 199 [facility] mg/dL [facility] Comment: Supplemental ranges: <140 mg/dL before meals <180 mg/dL all other times of the day Specimen Anatomical Collection Method Collection Time Receive d Time (Source) Location / / Volume Laterality Blood specimen 07/06/2017 4:06 PM 017 4:06 (specimen) EST PM EST Daphne Shahid MD POINT OF CARE TEST ORDERABLE S Performing Organization Address City/[facility]/[place] [address] POCT Glucose (07/06/2017 2:59 PM EST) P athologist Signature POC Glucose 178 65 - 199 [facility] mg/dL [facility] Comment: Supplemental ranges: <140 mg/dL before meals <180 mg/dL all other times of the day Specimen Anatomical Collection Method Collection Time Receive d Time (Source) Location / / Volume Laterality Blood specimen 07/06/2017 2:59 PM 017 2:59 (specimen) EST PM EST Daphne Shahid MD POINT OF CARE TEST ORDERABLE S Performing Organization Address City/State/[place] [address] (ABNORMAL) Cardiac Enzymes (LEB/CGP) (07/06/2017 2:10 PM EST) P athologist Signature Troponin-T 2.34 (H) 0.00 - [facility] 0.00 ng/mL [facility] Comment: The 99th percentile for Troponin T is le ss than 0.01 ng/mL, any detectable cTnT concentration using this assay should be considered elevated. According to the third universal definit ion of myocardial infarction the following criteria with a clinical prese ntation consistent with acute myocardial ischemia meets the diagnosis for a myocardial infarction ([place]). Detection of a rise and/or fall of [...] additional sample may be indicated. Reference: Third Wharton Definition of Myocardial Infarction. Journal of the [place] [employer] 2012;60:1581-98 CK, Total 101 0 - 200 unit/L [facility] Specimen Anatomical Collection Method Collection Time Receive d Time (Source) Location / / Volume Laterality Blood specimen 07/06/2017 2:10 PM 017 2:26 (specimen) EST PM EST Resulting Agency Comment Spec In Lab Daphne Shahid MD CHEMISTRY ORDERABLES Performing Organization Address City/State/[place] [address] POCT Glucose (07/06/2017 2:08 PM EST) P athologist Signature POC Glucose 192 65 - 199 [facility] mg/dL [facility] Comment: Supplemental ranges: <140 mg/dL before meals <180 mg/dL all other times of the day Specimen Anatomical Collection Method Collection Time Receive d Time (Source) Location / / Volume Laterality Blood specimen 07/06/2017 2:08 PM 017 2:08 (specimen) EST PM EST Daphne Shahid MD POINT OF CARE TEST ORDERABLE S Performing Organization Address City/State/ZIP Code Phon e Number [address] POCT Glucose (07/06/2017 1:04 PM EST) P athologist Signature POC Glucose 162 65 - [address] mg/dL [facility] Comment: Supplemental ranges: <140 mg/dL before meals <180 mg/dL all other times of the day Specimen Anatomical Collection Method Collection Time Receive d Time (Source) Location / / Volume Laterality Blood specimen 07/06/2017 1:04 PM 017 1:04 (specimen) EST PM EST Daphne Shahid MD POINT OF CARE TEST ORDERABLE S Performing Organization Address City/[facility]/[place] [address] POCT Glucose (07/06/2017 12:05 PM EST) P athologist Signature POC Glucose 196 65 - [address] [facility] [address] mg/dL [facility] Comment: Supplemental ranges: <140 mg/dL before meals <180 mg/dL all other times of the day Specimen Anatomical Collection Method Collection Time Receive d Time (Source) Location / / Volume Laterality Blood specimen 07/06/2017 12:05 7 (specimen) PM EST 12:05 PM EST Daphne Shahid MD POINT OF CARE TEST ORDERABLE S Performing Organization Address City/[facility]/ZIP Code Phon e Number [address] EKG 12 Lead (07/06/2017 12:00 PM EST) Component Value Ref Range Test Analysis Performed Pathologis t Method Time At Signature Ventricular rate 91 BPM MUSE SYSTEM Atrial Rate 91 BPM MUSE SYSTEM P-R Interval 140 ms MUSE SYSTEM QRS Duration 94 ms MUSE SYSTEM Q-T Interval 394 ms MUSE SYSTEM QTC Calculated 484 ms MUSE SYSTEM (Bezet) Calculated P [place] 36 degrees MUSE SYSTEM Calculated R [place] -19 degrees MUSE SYSTEM Calculated T [place] 104 degrees MUSE SYSTEM INTERPRETATION Normal sinus rhythm MUSE SYSTEM 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) ST & T wave abnormality, consider lateral ischemia Abnormal ECG When compared with ECG of 05-JUL-2017 20:39, No significant change was found Confirmed by MD Luci, Taurus Braun ([id number]) on 07/06/2017 5:07:33 PM Specimen Anatomical Collection Method Collection Time Receive d Time (Source) Location / / Volume Laterality 07/06/2017 12:00 07/06/2017 5:07 PM EST PM EST Daphne Shahid MD ECG ORDERABLES Performing Organization Address City/State/ZIP Code Phon e Number MUSE SYSTEM ABORH Recheck Status (07/06/2017 12:00 PM EST) [facility] gist Method Time Signature ABORH Type Completed [facility] LABORATORY Specimen Anatomical Collection Method Collection Time Receive d Time (Source) Location / / Volume Laterality Blood specimen 07/06/2017 12:00 7 (specimen) PM EST 12:24 PM EST Resulting Agency Comment Spec In Lab Daphne Shahid MD BLOOD BANK ORDERABLES Performing Organization Address City/[facility]/[place] [address] Antibody screen (07/06/2017 12:00 PM EST) [facility] Method Time Signature Ab Screen Negative [facility] LABORATORY Expires at 07/09/2017 [facility] 235 on: [facility] LABORATORY Specimen Anatomical Collection Method Collection Time Receive d Time (Source) Location / / Volume Laterality Blood specimen 07/06/2017 12:00 7 (specimen) PM EST 12:24 PM EST Resulting Agency Comment Spec In Lab Daphne Shahid MD BLOOD BANK ORDERABLES Performing Organization Address City/[facility]/[place] [address] ABO/Rh Typing (07/06/2017 12:00 PM [...] Organization Address City/State/[place] [address] Prothrombin Time (07/06/2017 11:24 AM EST) athologist Signature PT 13.3 11.8 - 14.0 [facility] LABORATORY INR 1.0 0.9 - 1.1 [facility] LABORATORY Comment: [...] Shahid MD HEMATOLOGY ORDERABLES Performing Organization Address City/[facility]/[place] [address] (ABNORMAL) APTT (07/06/2017 11:24 AM EST) athologist Signature PTT 52 (H) 25 - 35 sec [facility] LABORATORY Comment: The recommended therapeutic range for fu ll dose, unfractionated heparin at [facility] is 80 ? 114 seconds. The use [...] Shahid MD HEMATOLOGY ORDERABLES Performing Organization Address City/[facility]/[place] [address] POCT Glucose (07/06/2017 11:02 AM EST) athologist Signature POC Glucose 187 65 - 199 [place] mg/dL [facility] LABORATORY Comment: Supplemental ranges: <140 mg/dL before meals <180 mg/dL all other times of the day Specimen Anatomical Collection Method Collection Time Receive d Time (Source) Location / / Volume Laterality Blood specimen 07/06/2017 11:02 7 (specimen) AM EST 11:02 AM EST Daphne Shahid MD POINT OF CARE TEST ORDERABLE S Performing Organization Address City/State/[place] [address] POCT Glucose (07/06/2017 10:18 AM EST) athologist Signature POC Glucose 193 65 - 199 [place] mg/dL [facility] LABORATORY Comment: Supplemental ranges: <140 mg/dL before meals <180 mg/dL all other times of the day Specimen Anatomical Collection Method Collection Time Receive d Time (Source) Location / / Volume Laterality Blood specimen 07/06/2017 10:18 7 (specimen) AM EST 10:18 AM EST Daphne Shahid MD POINT OF CARE TEST ORDERABLE S Performing Organization Address City/State/[place] [address] POCT Glucose (07/06/2017 9:25 AM EST) athologist Signature POC Glucose 182 65 - 199 [place] mg/dL [facility] LABORATORY Comment: Supplemental ranges: <140 mg/dL before meals <180 mg/dL all other times of the day Specimen Anatomical Collection Method Collection Time Receive d Time (Source) Location / / Volume Laterality Blood specimen 07/06/2017 9:25 AM 017 9:25 (specimen) EST AM EST Daphne Shahid MD POINT OF CARE TEST ORDERABLE S Performing Organization Address City/State/[place] [address] (ABNORMAL) Cardiac Enzymes (LEB/CGP) (07/06/2017 8:10 AM EST) athologist Signature Troponin-T 2.26 (H) 0.00 [facility] ng/mL [facility] LABORATORY Comment: The 99th percentile for Troponin T is le ss than 0.01 ng/mL, any detectable cTnT concentration using this assay should be considered elevated. According to the third universal definit ion of myocardial infarction the following criteria with a clinical prese ntation consistent with acute myocardial ischemia meets the diagnosis for a myocardial infarction ([place]). Detection of a rise and/or fall of [...] additional sample may be indicated. Reference: Third Wharton Definition of Myocardial Infarction. Journal of the [place] [employer] 2012;60:1581-98 CK, Total 124 0 - 200 unit/L [facility] LABORATORY Specimen Anatomical Collection Method Collection Time Receive d Time (Source) Location / / Volume Laterality Blood specimen 07/06/2017 8:10 AM 017 8:23 (specimen) EST AM EST Resulting Agency Comment Spec In Lab Daphne Shahid MD CHEMISTRY ORDERABLES Performing Organization Address City/State/[place] [address] Magnesium (07/06/2017 8:10 AM EST) athologist Signature Magnesium 0.84 0.69 - 1.07 [facility] mmol/L [facility] LABORATORY Specimen Anatomical Collection Method Collection Time Receive d Time (Source) Location / / Volume Laterality Blood specimen 07/06/2017 8:10 AM 017 8:21 (specimen) EST AM EST Resulting Agency Comment Spec In Lab Daphne Shahid MD CHEMISTRY ORDERABLES Performing Organization Address City/State/[place] [address] (ABNORMAL) Basic Metabolic Panel (non-fasting) (07/06/2017 8:10 AM EST) P athologist Signature Glucose Lvl 199 65 - 199 [facility] mg/dL [facility] LABORATORY Comment: Diabetes: >=200 mg/dL plus symp toms BUN 16 10 - 20 mg/dL [facility] LABORATORY Creatinine 1.04 0.80 - 1.50 mg/dL [facility] LABORATORY Sodium 141 135 - 145 [...] estions. Chloride 101 98 - 107 mmol/L [facility] LABORATORY CO2 27 22 - 31 mmol/L [facility] LABOR[facility] Anion Gap 13 5 - 15 mmol/L [facility] LABORATORY Calcium 8.1 (L) 8.5 - 10.5 mg/dL [facility] LABORATORY Estimated GFR >60 >=60 [facility] LABORATORY Comment: The reported eGFR should be multiplied b y 1.2 for patients. The MDRD is not an appropriate measure o f renal function for patients with body mass extremes or in patients with acute kidney failure. http://ScoreBig.[employer]/DHnkdep http://ScoreBig.[employer]/DHnkf Specimen Anatomical Collection Method Collection Time Receive d Time (Source) Location / / Volume Laterality Blood specimen 07/06/2017 8:10 AM 017 8:21 (specimen) EST AM EST Resulting Agency Comment Spec In Lab Daphne Shahid MD CHEMISTRY ORDERABLES Performing Organization Address City/State/[place] [address] POCT Glucose (07/06/2017 7:34 AM EST) P athologist Signature POC Glucose 198 65 - 199 [facility] SU mg/dL [facility] LABORATORY Comment: Supplemental ranges: <140 mg/dL before meals <180 mg/dL all other times of the day Specimen Anatomical Collection Method Collection Time Receive d Time (Source) Location / / Volume Laterality Blood specimen 07/06/2017 7:34 AM 017 7:34 (specimen) EST AM EST Daphne Shahid MD POINT OF CARE TEST ORDERABLE S Performing Organization Address City/State/ZIP Code Phon e Number [address] POCT Glucose (07/06/2017 7:03 AM EST) athologist Signature POC Glucose 181 65 - 199 [facility] mg/dL [facility] LABORATORY Comment: Supplemental ranges: <140 mg/dL before meals <180 mg/dL all other times of the day Specimen Anatomical Collection Method Collection Time Receive d Time (Source) Location / / Volume Laterality Blood specimen 07/06/2017 7:03 AM 017 7:03 (specimen) EST AM EST Daphne Shahid MD POINT OF CARE TEST ORDERABLE S Performing Organization Address City/State/[place] [address] XR Chest PA or [...] Signature POC Glucose 172 65 - 199 [facility] mg/dL [facility] LABORATORY Comment: Supplemental ranges: <140 mg/dL before meals <180 mg/dL all other times of the day Specimen Anatomical Collection Method Collection Time Receive d Time (Source) Location / / Volume Laterality Blood specimen 07/06/2017 6:21 AM 017 6:21 (specimen) EST AM EST Daphne Shahid MD POINT OF CARE TEST ORDERABLE S Performing Organization Address City/State/[place] [address] POCT Glucose (07/06/2017 5:08 AM EST) athologist Signature POC Glucose 154 65 - 199 [facility] mg/dL [facility] LABORATORY Comment: Supplemental ranges: <140 mg/dL before meals <180 mg/dL all other times of the day Specimen Anatomical Collection Method Collection Time Receive d Time (Source) Location / / Volume Laterality Blood specimen 07/06/2017 5:08 AM 017 5:08 (specimen) EST AM EST Daphne Shahid MD POINT OF CARE TEST ORDERABLE S Performing Organization Address City/State/ZIP Code Phon e Number [address] POCT Glucose (07/06/2017 4:05 AM EST) athologist Signature POC Glucose 142 65 - 199 [facility] mg/dL [facility] LABOR[facility]ORY Comment: Supplemental ranges: <140 mg/dL before meals <180 mg/dL all other times of the day Specimen Anatomical Collection Method Collection Time Receive d Time (Source) Location / / Volume Laterality Blood specimen 07/06/2017 4:05 AM 017 4:05 (specimen) EST AM EST Daphne Shahid MD POINT OF CARE TEST ORDERABLE S Performing Organization Address City/State/ZIP Code Phon e Number [address] POCT Glucose (07/06/2017 3:00 AM EST) athologist Signature POC Glucose 116 65 - 199 [facility] mg/dL [facility] LABORATORY Comment: Supplemental ranges: <140 mg/dL before meals <180 mg/dL all other times of the day Specimen Anatomical Collection Method Collection Time Receive d Time (Source) Location / / Volume Laterality Blood specimen 07/06/2017 3:00 AM 017 3:00 (specimen) EST AM EST Daphne Shahid MD POINT OF CARE TEST ORDERABLE S Performing Organization Address City/State/ZIP Code Phon e Number [address] Potassium (07/06/2017 2:20 AM EST) athologist Signature Potassium 3.9 3.5 - 5.0 [facility] mmol/L [facility] LABORATORY Comment: Please note: ??Patients with [...] Organization Address City/State/[place] [address] Differential, Automated (07/06/2017 2:20 AM EST) athologist Signature Neutrophils % 72.9 % [facility] LABORATORY Neutr Abs (ANC) 5.53 1.70 - [facility] 6.10 [facility] x10(3)[facility] LABORATORY Lymphocytes % 16.4 % [facility] Lymphocytes Abs 1.2 0.9 - 3.2 [facility] x10(3)/[facility] LABORATORY Monocytes % 9.4 % [facility] Monocyte Abs 0.7 0.3 - 0.9 [facility] x10(3)/[facility] LABORATORY Eosinophils % 0.5 % [facility] Eosinophils Abs 0.0 0.0 - 0.4 [facility] x10(3)/[facility] LABORATORY Basophils % 0.4 % [facility] Basophils Abs 0.0 0.0 - 0.1 [facility] x10(3)/[facility] LABORATORY Immature Gran % 0.40 % [facility] Comment: Immature granulocytes(IG's)percentage an d absolute count will include metamyelocytes, myelocytes, and promyelo cytes. Blood smears from CBCs yielding IG's will be scanned manually for concor dance. If this scan disagrees with the automated IG or if promyelocytes are not ed, a manual differential will be performed. Melisa Gran Abs 0.03 0.00 - 0.04 x10(3)/[facility] LABORATORY Specimen Anatomical Collection Method Collection Time Receive d Time (Source) Location / / Volume Laterality Blood specimen 07/06/2017 2:20 AM 017 2:33 (specimen) EST AM EST Resulting Agency Comment Spec In Lab Daphne Shahid MD HEMATOLOGY ORDERABLES Performing Organization Address City/State/[place] [address] (ABNORMAL) Hemogram (07/06/2017 2:20 AM EST) Analysis Performed At Patho logist Time Signature WBC 7.6 4.0 - 9.[address] [facility] x[facility](3[facility] LABORATORY RBC 4.52 (L) 4.58 - [place] SU 5.54 [facility] x10(6)/[facility] LABORATORY Hemoglobin 13.4 (L) 13.7 - [facility] 16.5 gm/dL [facility] LABORATORY Hematocrit 39.7 (L) 40.5 - [facility] 48.5 % [facility] LABORATORY MCV 87.8 82.9 - [facility] SU 93.1 [facility] LABORATORY MCH 29.6 27.5 - [place] SU 32.1 pg [facility] LABORATORY MCHC 33.8 32.0 - [place] [facility] 35.7 gm/dL [facility] LABORATORY Platelets 189 145 - 357 [facility] x10(3)/[facility] LABORATORY RDWSD 45.6 (H) 36.0 - [facility] 45.0 [facility] LABORATORY RDWCV 14.3 (H) 11.4 - [facility] SU 13.8 % [facility] LABORATORY MPV 9.1 7.6 - 12.9 [facility] nRBC % Auto 0.0 % [facility] LABORATORY nRBC Abs Auto 0.000 0.000 - [facility] SU 0.000 [facility] x10(3)/[facility] LABORATORY Specimen Anatomical Collection Method Collection Time Receive d Time (Source) Location / / Volume Laterality Blood specimen 07/06/2017 2:20 AM 017 2:33 (specimen) EST AM EST Resulting Agency Comment Spec In Lab Daphne Shahid MD HEMATOLOGY ORDERABLES Performing Organization Address City/State/[place] [address] (ABNORMAL) APTT (07/06/2017 2:20 AM EST) athologist Signature PTT 52 (H) 25 - 35 sec [facility] LABORATORY Comment: The recommended therapeutic range for fu ll dose, unfractionated heparin at [facility] is 80 ? 114 seconds. The use [...] Shahid MD HEMATOLOGY ORDERABLES Performing Organization Address City/[facility]/[place] [address] POCT Glucose (07/06/2017 2:20 AM EST) athologist [facility] POC Glucose 115 65 - 199 [facility] mg/dL [facility] LABORATORY Comment: Supplemental ranges: <140 mg/dL before meals <180 mg/dL all other times of the day Specimen Anatomical Collection Method Collection Time Receive d Time (Source) Location / / Volume Laterality Blood specimen 07/06/2017 2:20 AM 017 2:20 (specimen) EST AM EST Daphne Shahid MD POINT OF CARE TEST ORDERABLE S Performing Organization Address City/[facility]/[place] [address] (ABNORMAL) Cardiac Enzymes (LEB/CGP) (07/06/2017 2:20 AM EST) athologist [facility] Troponin-T 2.13 (H) 0.00 - [facility] 0.00 ng/mL [facility] LABORATORY Comment: The 99th percentile for Troponin T is le ss than 0.01 ng/mL, any detectable cTnT concentration using this assay should be considered elevated. According to the third universal definit ion of myocardial infarction the following criteria with a clinical prese ntation consistent with acute myocardial ischemia meets the diagnosis for a myocardial infarction ([place]). Detection of a rise and/or fall of [...] additional sample may be indicated. Reference: Third Wharton Definition of Myocardial Infarction. Journal of the [place] [employer] 2012;60:1581-98 CK, Total 129 0 - 200 unit/L [facility] LABORATORY Specimen Anatomical Collection Method Collection Time Receive d Time (Source) Location / / Volume Laterality Blood specimen 07/06/2017 2:20 AM 017 2:33 (specimen) EST AM EST Resulting Agency Comment Spec In Lab Daphne Shahid MD CHEMISTRY ORDERABLES Performing Organization Address City/State/ZIP Code Phon e Number [place] [id number] (ABNORMAL) Hemoglobin A1c (07/06/2017 2:20 AM EST) Analysis Performed At Patho logist Time Signature Hemoglobin A1C 6.8 (H) 4.3 - 5.6 [facility] LABORATORY Comment: Reference Range: 4.3 - [...] Mellitus, Diabetes Care 2013; 36: Suppl. 1, S67-91 Est Avg Gluc See note mg/dL [facility] LABORATORY Comment: Estimated Average Glucose not [...] with hemoglobinopathies. Additional resources are available on [facility] ADA website. Macario HAMMOND, Ruthann J, Deysi R, et al. ??Tr anslating the A1C assay into estimated average glucose values. ??Diabetes Care 2008:31(8):5257-5413. Specimen Anatomical Collection Method Collection Time Receive d Time (Source) Location / / Volume Laterality Blood specimen 07/06/2017 2:20 AM 017 2:34 (specimen) EST AM EST Resulting Agency Comment Spec In Lab Daphne Shahid MD CHEMISTRY ORDERABLES Performing Organization Address City/State/ZIP [place] [address] (ABNORMAL) Lipid Panel (07/06/2017 2:20 AM EST) [facility] Method Time Signature Chol, Total 150 <=239 [place] mg/dL [facility] LABORATORY Triglycerides 129 <=199 [place] mg/dL [facility] LABORATORY HDL 32 (L) >=40 [place] mg/dL [facility] LABORATORY LDL Cholesterol 92 <=190 [place] mg/dL [facility] LABORATORY Chol/HDL Ratio 4.7 ratio [facility] LABORATORY Lipid See Note [place] Interpretation [facility] LABORATORY Comment: Lipid management should be guided by a p atient? s ASCVD risk, goals and preferences. ACC/AHA Guidelines recommend high intens ity statin if clinical ASCVD or LDL greater than or equal to 190 mg/dL. http://ScoreBig.com/APL-FQL-Asixvwncf Adults aged 40-75 with LDL 70-189 mg/dL should have their 10 year ASCVD risk estimated with the ACC/AHA ASCVD risk es timator http://tools.acc.org/UXEDL-Szcz-Twqcxtya r/ Statin should be discussed if risk [...] Organization Address City/State/[place] [address] POCT Glucose (07/06/2017 1:09 AM EST) P athologist Signature POC Glucose 121 65 - 199 [facility] mg/dL [facility] LABORATORY Comment: Supplemental ranges: <140 mg/dL before meals <180 mg/dL all other times of the day Specimen Anatomical Collection Method Collection Time Receive d Time (Source) Location / / Volume Laterality Blood specimen 07/06/2017 1:09 AM 017 1:09 (specimen) EST AM EST Daphne Shahid MD POINT OF CARE TEST ORDERABLE S Performing Organization Address City/State/[place] [address] POCT Glucose (07/06/2017 12:06 AM EST) P athologist Signature POC Glucose 147 65 - 199 [facility] SU mg/dL [facility] LABORATORY Comment: Supplemental ranges: <140 mg/dL before meals <180 mg/dL all other times of the day Specimen Anatomical Collection Method Collection Time Receive d Time (Source) Location / / Volume Laterality Blood specimen 07/06/2017 12:06 7 (specimen) AM EST 12:06 AM EST Daphne Shahid MD POINT OF CARE TEST ORDERABLE S Performing Organization Address City/State/[place] [address] (ABNORMAL) POCT Glucose (07/05/2017 10:56 PM EST) P athologist Signature POC Glucose 200 (H) 65 - 199 [facility] mg/dL [facility] LAB[facility] Comment: Supplemental ranges: <140 mg/dL before meals <180 mg/dL all other times of the day Specimen Anatomical Collection Method Collection Time Receive d Time (Source) Location / / Volume Laterality Blood specimen 07/05/2017 10:56 7 (specimen) PM EST 10:56 PM EST Daphne Shahid MD POINT OF CARE TEST ORDERABLE S Performing Organization Address City/State/[place] [address] (ABNORMAL) POCT Glucose (07/05/2017 10:05 PM EST) P athologist Signature POC Glucose 225 (H) 65 - 199 [place] [facility] mg/dL [facility] LABORATORY Comment: Supplemental ranges: <140 mg/dL before meals <180 mg/dL all other times of the day Specimen Anatomical Collection Method Collection Time Receive d Time (Source) Location / / Volume Laterality Blood specimen 07/05/2017 10:05 7 (specimen) PM EST 10:05 PM EST Daphne Shahid MD POINT OF CARE TEST ORDERABLE S Performing Organization Address City/State/ZIP [place] [address] (ABNORMAL) POCT Glucose (07/05/2017 9:02 PM EST) P athologist Signature POC Glucose 301 (H) 65 - 199 [facility] mg/dL [facility] LABOR[facility]ORY Comment: Supplemental ranges: <140 mg/dL before meals <180 mg/dL all other times of the day Specimen Anatomical Collection Method Collection Time Receive d Time (Source) Location / / Volume Laterality Blood specimen 07/05/2017 9:02 PM 017 9:02 (specimen) EST PM EST Daphne Shahid MD POINT OF CARE TEST ORDERABLE S Performing Organization Address City/State/ZIP Code Phon e Number [address] XR Chest PA or AP [...] 474 ms MUSE SYSTEM (Bezet) Calculated P [place] 50 degrees MUSE SYSTEM Calculated R [place] -28 degrees MUSE SYSTEM Calculated T [place] 90 degrees MUSE SYSTEM INTERPRETATION Sinus tachycardia [...] (ABNORMAL) Differential, Automated (07/05/2017 8:20 PM EST) Patholo gist Method Time Signature Neutrophils % 88.4 % [facility] LABORATORY Neutr Abs (ANC) 9.08 (H) 1.70 - [facility] 6.10 [facility] x10(3)/[facility] LABORATORY Lymphocytes % 7.0 % [facility] LABORATORY Lymphocytes Abs 0.7 (L) 0.9 - 3.2 [facility] x10(3)/[facility] LABORATORY Monocytes % 3.7 % [facility] LABORATORY Monocyte Abs 0.4 0.3 - 0.9 [facility] x10(3)/[facility] LABORATORY Eosinophils % 0.1 % [facility] LABORATORY Eosinophils Abs 0.0 0.0 - 0.4 [facility] x10(3)/[facility] LABORATORY Basophils % 0.2 % [facility] LABORATORY Basophils Abs 0.0 0.0 - 0.1 [facility] x10(3)/[facility] LABORATORY Immature Gran % 0.60 % [...] Gran Abs 0.06 (H) 0.00 - 0.04 x10(3)/[facility] LABORATORY Specimen Anatomical Collection Method Collection Time Receive d Time (Source) Location / / Volume Laterality Blood specimen 07/05/2017 8:20 PM 017 8:27 (specimen) EST PM EST Resulting Agency Comment Spec In Lab Daphne Shahid MD HEMATOLOGY ORDERABLES Performing Organization Address City/State/[place] [address] (ABNORMAL) Hemogram (07/05/2017 8:20 PM EST) Analysis Performed At Patho logist Time Signature WBC 10.3 (H) 4.0 - 9.5 [facility] x10(3)/[facility] LABORATORY RBC 4.64 4.58 - [place] SU 5.54 [facility] x10(6)/[facility] LABORATORY Hemoglobin 14.1 13.7 - [facility] SU 16.5 gm/dL [facility] LABORATORY Hematocrit 40.8 40.5 - [place] 48.5 % [facility] LABORATORY MCV 87.9 82.9 - [place] 93.1 fL [facility] LABORATORY MCH 30.4 27.5 - [place] 32.1 pg [facility] LABORATORY MCHC 34.6 32.0 - [place] 35.7 gm/dL [facility] LABORATORY Platelets 204 145 - 357 [facility] x10(3)/[facility] LABORATORY RDWSD 46.1 (H) 36.0 - [place] 45.0 [facility] LABORATORY RDWCV 14.5 (H) 11.4 [facility] 13.8 % [facility] LABORATORY MPV 9.7 7.6 - 12.9 [facility] LABORATORY nRBC % Auto 0.0 % [facility] LABORATORY nRBC Abs Auto 0.000 0.000 - [facility] 0.000 [facility] x10(3)/[facility] LABORATORY Specimen Anatomical Collection Method Collection Time Receive d Time (Source) Location / / Volume Laterality Blood specimen 07/05/2017 8:20 PM 017 8:27 (specimen) EST PM EST Resulting Agency Comment Spec In Lab Daphne Shahid MD HEMATOLOGY ORDERABLES Performing Organization Address City/[facility]/ZIP Code Phon e Number [address] APTT (07/05/2017 8:20 PM EST) athologist Signature PTT 32 25 - 35 sec [facility] LABORATORY Comment: The recommended therapeutic range for fu ll dose, unfractionated heparin at [facility] is 80 ? 114 seconds. The use [...] Shahid MD HEMATOLOGY ORDERABLES Performing Organization Address City/[facility]/[place] [address] (ABNORMAL) Cardiac Enzymes (LEB/CGP) (07/05/2017 8:20 PM EST) athologist Signature Troponin-T 2.11 (H) 0.00 - [facility] 0.00 ng/mL [facility] LABORATORY Comment: The 99th percentile for Troponin T is le ss than 0.01 ng/mL, any detectable cTnT concentration using this assay should be considered elevated. According to the third universal definit ion of myocardial infarction the following criteria with a clinical prese ntation consistent with acute myocardial ischemia meets the diagnosis for a myocardial infarction ([place]). Detection of a rise and/or fall of [...] additional sample may be indicated. Reference: Third Wharton Definition of Myocardial Infarction. Journal of the [place] [employer] 2012;60:1581-98 CK, Total 149 0 - 200 unit/L [facility] LABORATORY Specimen Anatomical Collection Method Collection Time Receive d Time (Source) Location / / Volume Laterality Blood specimen 07/05/2017 8:20 PM 017 8:27 (specimen) EST PM EST Resulting Agency Comment Spec In Lab Daphne Shahid MD CHEMISTRY ORDERABLES Performing Organization Address City/[facility]/[place] [address] (ABNORMAL) Magnesium (07/05/2017 8:20 PM EST) P athologist Signature Magnesium 0.68 (L) 0.69 - 1.07 [facility] mmol/L [facility] LABORATORY Specimen Anatomical Collection Method Collection Time Receive d Time (Source) Location / / Volume Laterality Blood specimen 07/05/2017 8:20 PM 017 8:27 (specimen) EST PM EST Resulting Agency Comment Spec In Lab Daphne Shahid MD CHEMISTRY ORDERABLES Performing Organization Address City/[facility]/[place] [address] (ABNORMAL) Basic Metabolic Panel (non-fasting) (07/05/2017 8:20 PM EST) athologist Signature Glucose Lvl 321 (H) 65 - [address] [facility] mg/dL [facility] LABORATORY Comment: Diabetes: >=200 mg/dL plus symp toms BUN 20 10 - 20 mg/dL [facility] LABORATORY Creatinine 1.12 0.80 - 1.50 mg/dL [facility] LABORATORY Sodium 139 135 - 145 mmol/L [facility] LABORATORY Potassium 3.8 3.5 - 5.0 mmol/L [facility] [...] 31 mmol/L [facility] LABORATORY Anion Gap 14 5 - 15 mmol/L [facility] LABORATORY Calcium 8.1 (L) 8.5 - 10.5 mg/dL [facility] LABORATORY Estimated GFR >60 >=60 [facility] LABORATORY Comment: The reported eGFR should be multiplied b y 1.2 for patients. The MDRD is not an appropriate measure o f renal function for patients with body mass extremes or in patients with acute kidney failure. http://[employer]/DHnkdep http://[employer]/DHMCnkf Specimen Anatomical Collection Method Collection Time Receive d Time (Source) Location / / Volume Laterality Blood specimen 07/05/2017 8:20 PM 017 8:27 (specimen) EST PM EST Resulting Agency Comment Spec In Lab Daphne Shahid MD CHEMISTRY ORDERABLES Performing Organization Address City/State/[place] [address] (ABNORMAL) POCT Glucose (07/05/2017 7:32 PM EST) athologist Signature POC Glucose 296 (H) 65 - 199 [facility] mg/dL [facility] LABORATORY Comment: Supplemental ranges: <140 mg/dL before meals <180 mg/dL all other times of the day Specimen Anatomical Collection Method Collection Time Receive d Time (Source) Location / / Volume Laterality Blood specimen 07/05/2017 7:32 PM 017 7:32 (specimen) EST PM EST Daphne Shahid MD POINT OF CARE TEST ORDERABLE S Performing Organization Address City/State/[place] [address] CARDIAC CATHETERIZATION (07/05/2017 6:47 PM EST) Specimen (Source) Anatomical Location Collection Method / Collectio n Time Received Time / Laterality Volume Narrative CARDIOMAC SYSTEM - 07/05/2017 7:27 PM ES T ?[facility] ? Cardiac Cathete rization/Intervention Report ? Patient Name: Natalya, Gregory ? Procedure Date: 07/05/2017 ? A #: [id number] ? Primary Physician: Clarisa, Jet Sampson ? Case #: [id number] ? File Name: [id number] ? Catheterization Order Number: [id number] ? [facility] ? Final Report [place], [place] ? Patient Name: ? Gregory Natalya ?ID#: ?[id number] ? : ?1945 ? Procedure Date: ? Johnny 11, 20 17 ?Case #: ? [id number] ? Room: ? 6 ? Case Physician: [...] presented with: non -STEMI (w/i 7 days). Citizen Of [place] ?Cardiovascular Society angina c lass was IV. [...] site angio graphy and IABP insertion in cath lab technologist. ? Jet Mckenna, M.D. ? Electronically Signed by: Jet Robbins s, M.D. ? Report Finalized: 07/05/2017 ??19:23 ? Report Last Ammended: 10/26/2017 ??10:29 ? Procedure Note Jet Mckenna MD - 10/26/2017Formatt ing of this note might be different from the original. [facility] Cardiac Catheterization/Intervention Re port Patient Name: Gregory Hoang Procedure Date: 07/05/2017 A #: [id number] Primary Physician: Jet Mckenna Case #: [id number] File Name: [id number] Catheterization Order Number: [id number] [facility] Final Report [place], [place] Patient Name: Gregory Hoang ID#: [id number] : 1945 Procedure Date: July 05, [...] presented with: non-STEMI ( w/i 7 days). Citizen [place] Cardiovascular Society angina class was IV. No [...] in the descending thoracic aorta under fluoroscopy guidan ce. There was good diastolic augmentation and systolic unloading. Successful IABP placement. The attending physician was present for the entire procedure. Dr. Jet Mckenna M.D. was present d uring the moderate sedation intraservice time as documented by the sedation nurse. Case time = 00:42. Dr. Jet Mckenna M.D. performed the coronary angiography, left heart catheterization, access site angiograph y and IABP insertion in cath lab technologist. Jet Mckenna M.D. Electronically Signed by: Jet [...] Mccollum ? (Age): 1945(72y) Med Rec#: ? [id number] ?Sex: ?M ? Site Loc: ? [facility] ?Ht / Wt: ??173(cm)/86(kg) Pt. Loc: ?[facility] ? BSA: ?2 Study Date: ?? 07/05/2017 ?Pt. Type: Inpatient Tape: ? Referring: Daphne Shahid ([id number]) Referring: MANDA ALCANTAR Reading: Blade Preston ([id number]) Rotary Driller: Dayami Paula BA, [facility] Diagnosis: *ICD-10-PCS Non-ST elevation (NSTEMI) m [...] E-wave Vmax ?0.8 ?m/sec ? MV deceleration [id number] ?msec ? MV A-wave Vmax ?0.8 ?m/sec [...] ? Mid-Inferior ?Akinetic ? Mid-Inferoseptal ?Hypokinetic ? Warren-Septal ? Akinetic ? Warren-Anterior ? Hypokinetic ? Warren-Lateral ?Hypokinetic ? Warren-Inferior ? Akinetic ? Warren-Tip ?Akinetic ? This report has been electronically sign ed by: _ Blade Preston MD ? 07/06/2017 08 :53:15 Images [facility] Procedure Note Blade Preston MD - 07/06/2017Formatt ing of this note might be different from the original. Procedure: Transthoracic Echocardiogram Patient: NATALYA MCBRIDE(Age): [birth year]72y) Med Rec#: [id number] Sex: M Site Loc: [facility] Ht / Wt: 173(cm)/86(kg) Pt. Loc: [facility] BSA: 2 Study Date: 07/05/2017 Pt. Type: Inpatie nt Tape: Referring: Daphne Shahid ([id number]) Referring: MANDA ALCANTAR Reading: Blade Preston ([id number]) Rotary Driller: Dayami Paula BA, [facility] Diagnosis: *ICD-10-PCS Non-ST elevation (NSTEMI) m [...] MV E-wave Vmax 0.8 m/sec MV deceleration [id number] msec MV A-wave Vmax 0.8 m/sec MV [...] Hypokinetic Mid-Posterolateral Hypokinetic Mid-Inferior Akinetic Mid-Inferoseptal Hypokinetic Warren-Septal Akinetic Warren-Anterior Hypokinetic Warren-Lateral Hypokinetic Warren-Inferior Akinetic Warren-Tip Akinetic This report has been electronically sign ed by: _ Blade Preston MD 07/06/2017 08:53:15 Images reviewed and interpretation verif ied [facility] Cardiac Ultrasound Laboratory Daphne Shahid MD ECHO ORDERABLES Performing Organization Address City/State/ZIP Code Phon e Number [facility] Differential, Automated (07/05/2017 4:55 PM EST) P athologist Signature Neutrophils % 77.0 % [facility] LABORATORY Neutr Abs (ANC) 5.26 1.70 - [facility] 6.10 [facility] x10(3)/[facility] LABORATORY Lymphocytes % 13.3 % [facility] LABORATORY Lymphocytes Abs 0.9 0.9 - 3.2 [facility] x10(3)/[facility] LABORATORY Monocytes % 8.2 % [facility] LABORATORY Monocyte Abs 0.6 0.3 - 0.9 [facility] x10(3)/[facility] LABORATORY Eosinophils % 0.7 % [facility] LABORATORY Eosinophils Abs 0.0 0.0 - 0.4 [facility] x10(3)/[facility] LABORATORY Basophils % 0.4 % [facility] LABORATORY Basophils Abs 0.0 0.0 - 0.1 [facility] x10(3)/[facility] LABORATORY Immature Gran % 0.40 % [facility] LABORATORY Comment: Immature granulocytes(IG's)percentage an d absolute count will include metamyelocytes, myelocytes, and promyelo cytes. Blood smears from CBCs yielding IG's will be scanned manually for concor dance. If this scan disagrees with the automated IG or if promyelocytes are not ed, a manual differential will be performed. Melisa Gran Abs 0.03 0.00 - 0.04 x10(3)/[facility] LABORATORY Specimen Anatomical Collection Method Collection Time Receive d Time (Source) Location / / Volume Laterality Blood specimen 07/05/2017 4:55 PM 017 5:24 (specimen) EST PM EST Resulting Agency Comment Spec In Lab Daphne Sahhid MD HEMATOLOGY ORDERABLES Performing Organization Address City/State/[place] [address] (ABNORMAL) Hemogram (07/05/2017 4:55 PM EST) Analysis Performed At Patho logist Time Signature WBC 6.8 4.0 - 9.5 [facility] x10(3)/[facility] LABORATORY RBC 4.67 4.58 - [facility] 5.54 [facility] x10(6)/[facility] LABORATORY Hemoglobin 14.0 13.7 - [facility] 16.5 gm/dL [facility] LABORATORY Hematocrit 41.0 40.5 - [facility] 48.[facility] % [facility] LABORATORY MCV 87.8 82.9 - [facility] 93.1 [facility] LABORATORY MCH 30.0 27.5 - [facility] 32.1 pg [facility] LABORATORY MCHC 34.1 32.0 - [facility] 35.7 gm/dL [facility] LABORATORY Platelets 197 145 - 357 [facility] x10(3)/[facility] LABORATORY RDWSD 46.4 (H) 36.0 [facility].0 [facility] LABORATORY RDWCV 14.5 (H) 11.4 [facility] 13.8 % [facility] LABORATORY MPV 9.7 7.6 - 12.9 [facility] LABORATORY nRBC % Auto 0.0 % [facility] LABORATORY nRBC Abs Auto 0.000 0.000 - [facility] 0.000 [facility] x10(3)/[facility] LABORATORY Specimen Anatomical Collection Method Collection Time Receive d Time (Source) Location / / Volume Laterality Blood specimen 07/05/2017 4:55 PM 017 5:24 (specimen) EST PM EST Resulting Agency Comment Spec In Lab Daphne Shahid MD HEMATOLOGY ORDERABLES Performing Organization Address City/[facility]/[place] [address] (ABNORMAL) Cardiac Enzymes (LEB/CGP) (07/05/2017 4:55 PM EST) P athologist Signature Troponin-T 1.69 (H) 0.00 - [place] [facility] 0.00 ng/mL [facility] LABORATORY Comment: The 99th percentile for Troponin T is le ss than 0.01 ng/mL, any detectable cTnT concentration using this assay should be considered elevated. According to the third universal definit ion of myocardial infarction the following criteria with a clinical prese ntation consistent with acute myocardial ischemia meets the diagnosis for a myocardial infarction ([place]). Detection of a rise and/or fall of [...] additional sample may be indicated. Reference: Third Wharton Definition of Myocardial Infarction. Journal of the [place] [employer] 2012;60:1581-98 CK, Total 191 0 - 200 unit/L [facility] LABORATORY Specimen Anatomical Collection Method Collection Time Receive d Time (Source) Location / / Volume Laterality Blood specimen 07/05/2017 4:55 PM 017 5:56 (specimen) EST PM EST Resulting Agency Comment Spec In Lab Daphne Shahid MD CHEMISTRY ORDERABLES Performing Organization Address City/[facility]/[place] [address] (ABNORMAL) pro-Brain Natriuretic Peptide (07/05/2017 4:55 PM EST) athologist Signature ProBNP 1,598 (H) <=125 [facility] SU pg/mL [facility] LABORATORY Specimen Anatomical Collection Method Collection Time Receive d Time (Source) Location / / Volume Laterality Blood specimen 07/05/2017 4:55 PM 017 5:24 (specimen) EST PM EST Resulting Agency Comment Spec In Lab Daphne Shahid MD CHEMISTRY ORDERABLES Performing Organization Address City/[facility]/ZIP Code Phon e Number [address] Magnesium (07/05/2017 4:55 PM EST) athologist [facility] Magnesium 0.78 0.69 - 1.[address] [facility] mmol/L [facility] LABORATORY Specimen Anatomical Collection Method Collection Time Receive d Time (Source) Location / / Volume Laterality Blood specimen 07/05/2017 4:55 PM 017 5:24 (specimen) EST PM EST Resulting Agency Comment Spec In Lab Daphne Shahid MD CHEMISTRY ORDERABLES Performing Organization Address City/State/ZIP Code Phon e Number [address] (ABNORMAL) Basic Metabolic Panel (non-fasting) (07/05/2017 4:55 PM EST) athologist [facility] Glucose Lvl 230 (H) 65 - 199 [facility] mg/dL [facility] LABORATORY Comment: Diabetes: >=200 mg/dL plus symp toms BUN 19 10 - 20 mg/dL [facility] LABORATORY Creatinine 1.04 0.80 - 1.50 mg/dL [facility] LABORATORY Sodium 142 135 - 145 mmol/L [facility] LABORATORY Potassium 4.0 3.5 - 5.0 mmol/L [facility] 31 mmol/L [facility] LABOR[facility] Anion Gap 14 5 - 15 mmol/L [facility] LABORATORY Calcium 8.5 8.5 - 10.5 mg/dL [facility] LABORATORY Estimated GFR >60 >=60 [facility] LABORATORY Comment: The reported eGFR should be multiplied b y 1.2 for patients. The MDRD is not an appropriate measure o f renal function for patients with body mass extremes or in patients with acute kidney failure. http://[employer]/DHnkdep http://[employer]/DHMCnkf Specimen Anatomical Collection Method Collection Time Receive d Time (Source) Location / / Volume Laterality Blood specimen 07/05/2017 4:55 PM 017 5:24 (specimen) EST PM EST Resulting Agency Comment Spec In Lab Daphne Shahid MD CHEMISTRY ORDERABLES Performing Organization Address City/[facility] [place] [address] (ABNORMAL) APTT (07/05/2017 4:55 PM EST) P athologist Signature PTT 41 (H) 25 - 35 sec [facility] LABORATORY Comment: The recommended therapeutic range for fu ll dose, unfractionated heparin at [facility] is 80 ? 114 seconds. The use [...] Shahid MD HEMATOLOGY ORDERABLES Performing Organization Address City/[facility]/ZIP Code Phon e Number [address] (ABNORMAL) POCT Glucose (07/05/2017 4:53 PM EST) P athologist Signature POC Glucose 208 (H) 65 - 199 [facility] mg/dL [facility] LABORATORY Comment: Supplemental ranges: <140 mg/dL before meals <180 mg/dL all other times of the day Specimen Anatomical Collection Method Collection Time Receive d Time (Source) Location / / Volume Laterality Blood specimen 07/05/2017 4:53 PM 017 4:53 (specimen) EST PM EST Daphne Shahid MD POINT OF CARE TEST ORDERABLE S Performing Organization Address City/State/[place] [address] EKG 12 Lead (07/05/2017 4:32 PM EST) Component Value Ref Range Test Analysis Performed Pathologis t Method Time At Signature Ventricular rate 97 BPM MUSE SYSTEM Atrial Rate 97 BPM MUSE SYSTEM P-R Interval 148 ms MUSE SYSTEM QRS Duration 96 ms MUSE SYSTEM Q-T Interval 364 ms MUSE SYSTEM QTC Calculated 462 ms MUSE SYSTEM (Bezet) Calculated P [place] 48 degrees MUSE SYSTEM Calculated R [place] -33 degrees MUSE SYSTEM Calculated T [place] 98 degrees MUSE SYSTEM INTERPRETATION Normal sinus [...] filedocumented in this encounter Admitting Diagnoses Diagnosis STEMI (ST elevation myocardial infarctio n) Acute myocardial infarction, unspecified site, episode of care unspecified documented in this encounter Administered Medications Inactive Administered Medications - up to 3 most recent administrations Medication Order MAR Action Action Date Dose Rate Site acetaminophen (TYLENOL) tablet Given 07/12/2017 5:44 AM EST 1,00 0 mg 1,000 mg 1,000 mg, Oral, EVERY 6 HOURS PRN, Starting on Wed07/09/17 at 1509, Until Wed07/14/17 at 1639, Pain, Maximum dose of acetaminophen is 4000 mg from all sources in 24 hours., Routine Given 07/11/2017 12:23 AM EST 1,000 mg Given 07/10/2017 1:41 PM EST 1,000 mg AMIOdarone (CORDARONE; PACERONE) [...] 07/12/2017 8:21 AM EST 81 mg aspirin suppository 300 mg Given 07/08/2017 8:09 AM EST 300 mg 300 mg, Rectal, DAILY, First dose on Wed07/07/17 at 1900, Until Discontinued, Start on post-op day 1 in the AM Give NJ if unable to take PO, Routine Given 07/07/2017 10:28 PM EST 300 mg atorvastatin (LIPITOR) tablet 40 mg Given 07/13/2017 5:38 PM EST 40 mg 40 mg, Oral, EVERY EVENING, First dose (after last modification) on Wed07/09/17 at 1700, Until Discontinued, Routine Given 07/12/2017 4:11 PM EST 40 mg Given 07/11/2017 4:14 PM EST 40 mg bisacodyl (DULCOLAX) suppository 10 mg Given 07/11/2017 2:02 PM EST 10 mg 10 mg, Rectal, DAILY PRN, Starting on 07/10/17 at 0000, Until Wed07/14/17 at 1639, Constipation, Starting post-op day 3., Routine calcium chloride 100 mg/mL (10 %) inject ion Given 07/07/2017 5:02 PM EST 1 g ONCE PRN, Starting on Wed07/07/17 at 1702, Until Wed07/07/17 at 1821, Intra-Operative (Intra-Procedure), Routine cardioplegic solution (PLEGISOL) induction New Bag 07/07 3:59 PM EST 250 mLs solution CONTINUOUS PRN, Starting on Wed07/07/17 at 1559, Until Wed07/07/17 at 1821, Intra-Operative (Intra-Procedure) cardioplegic solution (PLEGISOL) Restarted 07/07/2017 4:39 PM EST 90 mLs maintenance solution CONTINUOUS PRN, Starting on Wed07/07/17 at 1629, Until Wed07/07/17 at 1821, Intra-Operative (Intra-Procedure) Restarted 07/07/2017 4:32 PM EST 85 mLs New Bag 07/07/2017 4:29 PM EST 65 mLs ceFAZolin (ANCEF) 2g in dextrose 5% New [...] EST 2 g 200 mL/hr cefUROXime (ZINACEF) injection 1.5 g Given 07/07/2017 1:51 PM EST 1 g ONCE PRN, Starting on Wed07/07/17 at 1351, Until Wed07/07/17 at 1821, Intra-Operative (Intra-Procedure), Routine electrolyte (pH 7.4) (NORMOSOL-R; New 07/07/2017 1:50 PM EST 1 ,320 mLs PLASMALYTE-A) injection CONTINUOUS PRN, Starting on Wed07/07/17 at 1350, Until Wed07/07/17 at 1821, Intra-Operative (Intra-Procedure) furosemide (LASIX) tablet 20 mg 20 mg, Oral, DAILY, First dose on Wed at 0900, Until Discontinued, Routine furosemide (LASIX) tablet 40 mg Given 07/14/2017 9:22 AM EST 40 mg 40 mg, Oral, DAILY, 7 doses, First dose (after last modification) on Wed07/13/17 at 0900, Last dose on Wed07/19/17 at 0900, Routine Given 07/13/2017 8:40 AM EST 40 mg heparin (porcine) injection Given 07/07/2017 3:43 PM EST 50,000 Units ONCE PRN, Starting on Wed07/07/17 at 1350, Until Wed07/07/17 at 1821, Intra-Operative (Intra-Procedure), Routine Given 07/07/2017 3:26 PM EST 25,000 Units Given 07/07/2017 1:50 PM EST 5,000 Units insulin glargine VIAL injection 50 Units Given 07/14/2017 9:29 AM EST 50 Units 50 Units, Subcutaneous, EVERY 24 HOURS, First dose (after last modification) on Wed07/14/17 at 1000, Until Discontinued, Routine insulin lispro (humaLOG) VIAL injection 0-10 Given [...] Given 07/12/2017 11:37 AM EST 2 Units levothyroxine (SYNTHROID) tablet 175 mcg Given 07/14/2017 5:30 AM EST 175 mcg 175 mcg, Oral, EVERY MORNING, First dose on Wed07/06/17 at 0600, Until Discontinued, Routine Given 07/13/2017 6:15 AM EST 175 mcg Given 07/12/2017 5:21 AM EST 175 mcg lidocaine (PF) (XYLOCAINE) 100 mg/5 mL (2 %) Given 5:02 PM EST 200 mg injection ONCE PRN, Starting on Wed07/07/17 at 1702, Until Wed07/07/17 at 1821, Intra-Operative (Intra-Procedure), Routine lisinopril (PRINIVIL;ZESTRIL) tablet 10 mg Given 07/14/2017 9:21 AM EST 10 mg 10 mg, Oral, DAILY, First dose (after last modification) on Wed07/14/17 at 0900, Until Discontinued, Routine magnesium hydroxide (MILK OF MAGNESIA) oral Given 07/12/2017 8:21 AM EST 10 mLs suspension 10 mL 10 mL, Oral, DAILY, First dose on Wed07/09/17 at 0900, Until Discontinued, Post-op day 2. Do not use with renal insufficiency., Routine Given 07/11/2017 11:13 AM EST 10 mLs Given 07/10/2017 10:27 AM EST 10 mLs magnesium sulfate 4 mEq/mL (50 %) inject ion Given 07/07/2017 5:02 PM EST 2 g ONCE PRN, Starting on Wed07/07/17 at 1702, Until Wed07/07/17 at 1821, Intra-Operative (Intra-Procedure), Routine mannitol (50 grams and over) 100 g/500 mL New Bag 07/07/2017 5:02 PM EST 50 g (20%) infusion CONTINUOUS PRN, Starting on Wed07/07/17 at 1702, Until Wed07/07/17 at 1821, Intra-Operative (Intra-Procedure) meTOPROLOL (LOPRESSOR) injection 2.5 mg 2.5 mg, Intravenous, ONCE PRN, 1 dose, S tarting on Wed07/11/17 at 1619, Until Wed07/14/17 at 1639, Elevated Heart Rate, for HR>120, ple ase hold for SBP<90 or MAP<60. meTOPROLOL tartrate (LOPRESSOR) tablet 2 5 mg Given 07/14/2017 9:21 AM EST 25 mg 25 mg, Oral, EVERY 12 HOURS SCHEDULED (2 times per day), First dose (after last modification) on Wed07/13/17 at 2100, Until Discontinued, Routine Given 07/13/2017 8:01 PM EST 25 mg oxyCODONE (ROXICODONE) immediate release Given 07/10/2017 1:41 [...] Given 07/12/2017 8:21 AM EST 40 mg polyethylene glycol (MIRALAX) packet 17 g Given 07/12/2017 8:21 AM EST 17 g 17 g, Oral, DAILY, First dose on Wed07/11/17 at 1800, Until Discontinued, Routine Given 07/11/2017 6:28 PM EST 17 g potassium chloride (K-DUR/KLOR-CON) extended Given 9:22 AM EST 20 mEq release tablet 20 mEq 20 mEq, Oral, DAILY, First dose on Wed07/12/17 at 1015, Until Discontinued, Routine Given 07/13/2017 8:41 AM EST 20 mEq Given 07/12/2017 10:03 AM EST 20 mEq senna-docusate (PERICOLACE) 8.6-50 mg per Given 2016 8:20 PM EST 2 tablets tablet 2 tablet 2 tablet, Oral, DAILY, First dose on Ivis 07/08/17 at 2100, Until Discontinued, Post-op day 1, Routine Given 07/11/2017 8:33 PM EST 2 tablets Given 07/10/2017 9:05 PM EST 2 tablets sodium chloride 0.9 % flush 5 mL Given 07/14/2017 5:32 AM EST 5 mLs 5 mL, Intravenous, EVERY 8 HOURS, First dose on 07/11/17 at 1330, Until Discontinued, Routine Given 07/13/2017 8:04 PM EST 5 mLs Given 07/13/2017 6:15 AM EST 5 mLs warfarin (COUMADIN) daily order reminder Oral, EVERY 24 HOURS, First dose on 07/12/17 at 1400, Until Discontinued, If the daily warfarin order has not been pl aced, contact the Provider to confirm that the order will be written, the dose is held or discont inued. warfarin (COUMADIN) tablet 2.5 mg 2.5 mg, Oral, ONCE, 1 dose, On Wed07/14/17 at 1700, R outine documented in this encounter Active and Recently [...] Jones RN)0900 (Not Given - Provider: Em Jones, VAMSI - Reason: Contraindicated) 0922 (See Alternative - Provider: Myrna Young RN) 300 mg, Rectal, DAILY, First dose on Wed07/07/17 at 1900, Until Discontinued, Start on post-op day 1 in the AM Give NJ if unable to take PO, Routine atorvastatin (LIPITOR) tablet 40 mg 1611 (Given - Prov ider: More Luther RN) 1738 (Given - Provider: Em Jones RN) 40 mg, Oral, EVERY EVENING, First dose o n Wed07/09/17 at 1700, Until Discontinued, Routine ceFAZolin (ANCEF) 2g in dextrose 5% 100 mL 1756 (New B ag - Provider: Yanet Valdovinos, VAMSI)1826 (Stopped - Provider: More Luther RN) 0125 (New Bag - Provider: Ale Rangel RN)0155 (Stopped - Provider: Ale Rangel RN)0901 (New Bag - Provider: Em Jones, VAMSI)0931 (Stopped - Provider: Em Jones, VAMSI)1738 (New Bag - Provider: Em Jones RN) 0143 (New Bag - Provider: Denice Jacobson, VAMSI)0213 (Stopped - Provider: Denice Jacobson, VAMSI)0932 (New Bag - Provider: Myrna Young, VAMSI)1002 (Stopped - Provider: Myrna Young RN) 2 [...] mg 0840 (Given - Pr ovider: Em Jones RN) 0922 (Given - Provider: [...] 0-10 Units 1836 (Given - Provider: Em Jones, VAMSI - Comment: ate chocolate ice cream/pears late [...] Reason: Contraindicated) 0000 (Not Given - Provider: Ale morris RN - Reason: Order parameters not [...] parameters not met)1307 (Given - Provider: Em Jones RN)1600 (Not Given - Provider: Em Jones RN [...] Valdovinos, VAMSI) 0842 (Given - Provider: Em Jones RN)1307 (Given - Provider: Em Jones RN) 0-20 Units, Subcutaneous, 3 TIMES DAILY WITH MEALS, First dose on Wed07/10/17 at 1200, Until Discontinued, [employer] Give 1 unit for every 5 grams carbohydrate. Hold if not eating or if BS <90, Routine levothyroxine (SYNTHROID) tablet 175 mcg 0521 (Given - Provider: Carmen Brery, VAMSI) 0615 (Given - Provider: Ale Rangel, RN) 0530 (Gi cody - Provider: Denice Jacobson RN) 175 mcg, Oral, EVERY MORNING, First dose on Wed07/06/17 at 0600, Until Discontinued, Routine lisinopril (PRINIVIL;ZESTRIL) tablet 10 mg 0921 (Given - Provider: Myrna Young RN) 10 [...] 0615 (Given - Provider: Ale Rangel , VAMSI)1311 (Given - Provider: Em Jones RN) 12.5 mg, Oral, EVERY 8 HOURS SCHEDULED, First dose on Wed07/11/17 at 1400, Until Discontinued, Routine meTOPROLOL tartrate (LOPRESSOR) tablet 25 mg 2000 (Given - Provider: Denice Jacobson RN) 09 (Given - Provider: Myrna triplett, RN) 25 mg, Oral, EVERY 12 HOURS SCHEDULED (2 times per day), First dose on Wed07/13/17 at 2100, Until Discontinued, Routine pantoprazole (PROTONIX) injection 40 mg(Linked Group 3 ) 0821 (See Alternative - Provider: More Luther RN) 0840 (See Alternative - Provider: George Jones, VAMSI)0900 (Not Given - Provider: Em Jones RN [...] RN) 0922 (Given - Provider: Myrna Young, VAMSI) 40 mg, Oral, DAILY, First dose on Wed at 1900, Until Discontinued, DO NOT CRUSH OR OPEN If unable to take PO, may give IV, Routine polyethylene glycol (MIRALAX) packet 17 g 08 (Given - Provider: More Luther RN) 09 (Not Given - Provider: Em joe RN - Reason: Patient/family refused) 09 (Not Given - Provider: Myrna mendoza RN - Reason: Patient/family refused) 17 g, Oral, DAILY, First dose on Wed at 1800, Until Discontinued, Routine potassium chloride (K-DUR/KLOR-CON) extended release t ablet 20 mEq (COMPLETED) 08 (Given - Provider: More Luther RN) 20 mEq, Oral, ONCE, 1 dose, Wed07/12/17 at 0845, Routine potassium chloride (K-DUR/KLOR-CON) extended release t ablet 20 mEq 1003 (Given - Provider: More Luther RN) 0841 (Given - Provider: Em Jones, RN) 0922 (Given - Provider: Myrna Young, RN) 20 mEq, Oral, DAILY, First dose on Wed 1 09/12/16 at 1015, Until Discontinued, Routine potassium chloride (K-DUR/KLOR-CON) extended release tablet 40 mEq (COMPLETED) 0841 (Given - Provider: Em Jones, RN) 40 mEq, Oral, ONCE, 1 dose, Wed07/13/17 at 0745, 20 mEq tablet may be dissolved in water for administration, Routine senna-docusate (PERICOLACE) 8.6-50 mg per tablet 2 tab let 2019 (Given - Provider: Ale Rangel RN) 2100 (Not Given - Provider: Denice contreras RN [...] Rangel RN)1330 (Not Given - Provider: Em Jones, VAMSI - Reason: Contraindicated)2003 (Given - Provider: Denice Jacobson, VAMSI) 0532 (Given - Provider: Denice Jacobson RN)1330 (Not Given - Provider: Myrna Young RN - Reason: Patient/family refused) 5 mL, Intravenous, EVERY 8 HOURS, First dose on Wed07/11/17 at 1330, Until Discontinued, Routine 2200 (Given - Provider: Ale Rangel RN) 0 (No t Given - Provider: Denice [...] (COMPLETED) 173 (Given - Provider: Em Jones, VAMSI) 2.5 mg, Oral, ONCE, 1 dose, Wed07/13/17 [...] for 6hrs, then 0.5mg/min for 18hrs. After fir2017 (New Bag - Provider: Ale Rangel RN) t 24hours, order maintenance dose 0.5 mg/min. Use in-line filter . PRN Medication Order 07/12/2017 07/13/2017 07/14/2017 acetaminophen (TYLENOL) tablet 1,000 mg 0544 (Given - Provider: Carmen Berry RN) 1,000 mg, Oral, EVERY 6 HOURS [...] Intravenous, ONCE PRN, 1 dose, S tarting 07/11/17 at 1619, Until Wed07/14/17 at 1639, Elevated [...] post-op day 1 in the AM Give NJ if unable to take PO
Routine Group 2: POCT Fingerstick Glucose (CANCELED) Routine, EVERY 4 HOURS, First occurrence on Wed07/10/17 at 1200, Until Specified
Consider choosing EVERY [...] First dose on Wed07/10/17 at 0930, Until Discontinued
CORRECTION BOLUS to [...]
Routine documented in this encounter Care Teams Newspaper Inserter Relationship Specialty Start Date End Date Lovely Vicente MD PCP - General 04/[birth year][address] [place] [id number] documented as of this encounter
--- OUTSIDE RECORDS SUMMARY | 2022-02-06 13:39 | XMS_ITS | Encounter Summary ---
:1945 [place] [address] Care Team Providers Name Role Phone Lovely Vicente MD Primary Care Provider Reason for Visit Auth/Cert Specialty Diagnoses / Procedures Referred By Contact Refer red To Contact Diagnoses STEMI (ST elevation myocardial infarction) NSTEMI STEMI Procedures CARDIAC CATHETERIZATION NAYE IPI Referral ID Status Reason Start Date Expiration Date Visits Requ ested Visits Authorized [id number] 1 1 Encounter Details Date Type Department Care Team Description 07/07/2017 Anesthesia Event Main Operating Room Yifan Jaime MD [facility] [place] [place] [address] [facility] Ginny Murray MD [facility] [place] [address] [facility] [place] [address] Anesthesia Record Procedure Summary Procedure Name Responsible Anesthesia Start Anesthesia Stop Time Anesthesiologist Time @CABG, USING Yifan Perez MD 07/07/17 1335 07/07/17 18 36 ARTERIAL GRAFT;SINGLE ARTERIAL GRAFT (WRVU 33.75) (N/A Chest) Events Date Time Event Comment 07/07/2017 1313 1335 AN Verify 1335 Start 1335 An Start Data 1343 An Induction 1348 An Intubation 1352 AVELINO PROBE ONLY 1415 Anesthesia Ready 1420 an luis enrique now 1432 Sternotomy 1549 CV Bypass init 1553 An Clamp start 1709 Rewarming 1717 CP Bypass Ended 1722 an luis enrique now 1740 Chest Closed 1819 an stop data 1836 Recovery or ICU Handoff Patient care was transferred to the destination unit staff after review of the patient's medica l history, current anesthetic/surgi nusrat status and plan, according to the Provider Handoff Checklist. 1836 Stop Name Total Midazolam 5 mg fentaNYL 1,000 mcg Propofol 50 mg Propofol INF 87.13 mg PHENYLephrine 880 mcg PHENYLephrine INF 3,075 mcg Vecuronium 20 mg Protamine 250 mg Tranexamic Acid 820 mg Tranexamic Acid INF 310.99 mg Insulin Regular Human 15 Units Insulin Regular INF 22.57 Units ePHEDrine 10 mg NORepinephrine INF 36 mcg ceFURoxime 3 g heparin (porcine) injection 75,000 Units EPINEPHrine INF 376 mcg Sodium Chloride 0.9% 400 mL Sodium Chloride 0.9% 800 mL Lactated Ringers 700 mL Agents Name O2 Air N2O Isoflurane (et) Blood No blood administrations on file. Lines, Drains, and Airways Type Details Placement Removal Incision 03/28/13; neck; 07/27/17 03/28/13 0000 by 0000 by Chapin iPttman RN Murray-Duch esne, Jillian M, RN PIV 03/28/13; 0920; 03/28/13 0920 by 07/13/17 0648 b y amiodarone infiltrate; Elizabeth Ferrer RN Plante, Donald A, RN site symptomatic; 07/13/17; 0648 Lumbar/CSF Drain 03/28/13; 1146; neck; 03/28/13 1146 by 07/27/17 0000 by 07/27/17 Brody Cabrera RN Murray-Duchesn e, Jillian M, RN Urethral Catheter 03/28/13; 1400; other 03/28/13 1400 by 7 2342 by (see comments)Sahil Sandra, Parrish, Mi chelle A, indwelling double lumen RN RN coude tip catheter; 16; drainage bag to dependent drainage; 07/11/17; 2342 LDA Cath/EP Sheath 07/05/17; 0606; 8 Chinese 07/05/17 0606 by 1118 by (Fr); Right; Femoral Lilliana Park, Yane Cook, RN PIV 07/05/17; 1720; median 07/05/17 1720 by 07/11/17 2355 by vein (underside of arm), Prior, Yanet Maza, VAMSI Crum, Angela Gomes, left; 18 gauge; removed CIVIL ENGINEERING MANAGER per policy/procedure; 07/11/17; 2355 Intra-Aortic Balloon 07/05/17; 1800; right 07/05/17 1800 by 06/25 11/09 1119 by Pump femoral artery; Stephanie Godoy Nunes, Kathl een D, 07/08/17; 1119 RN RN Urethral Catheter 07/07/17; 1241; Surgery 07/07/17 1241 by 07/11 1200 by longer than 2 hours; Kandi Velásquez, Eva Connors RN Physician order; RN indwelling single lumen catheter; urethral catheter removed, per protocol/policy, tubing intact; 07/11/17; 1200 ETT Mask Ventilation: 07/07/17 1348 by 07/09/17 0556 by Adjunct (2) (OA); ETT Ginny Murray MD Miller, Carrie L, Type: Cuffed; ETT Size: EXPANDED FUNCTION DENTAL ASSISTANT 8 mm; Santiago Blade: 2; Notes: Asleep, Pre-O2; Attempts: 1; Laryngoscopy Grade: 1; ETT Placement Verified By: Auscultation, Capnometry, Visual; Secured at Teeth: 23 cm; Inserted by: gertrudis Arterial Line 07/07/17; 1423; radial 07/07/17 1423 by 07/11/17 1200 by artery, right; 20 gauge; Ginny Murray MD Woma ck, Jane C RN gran; Sterile Prep, Sterile Gloves; no longer indicated, removed per policy, catheter intact; 07/11/17; 1200 PA Catheter 07/07/17; 1423; jugular 07/07/17 1423 by 7 0945 by vein, right internal; Ginny Murray MD Nunes, Kathleen D, VIP; 8 Fr; CVC Protocol RN Performed; gertrudis; 07/09/17; 0945 CVC Single/Intro. 07/07/17; 1423; internal 07/07/17 1423 by 06/25 02/08 1130 by jugular vein, right; Ginny Murray MD Womack, Jane C, RN Ultrasound Guidance; Yes; 9 Fr; gran; AVELINO; CVC Protocol Performed; no longer indicated, removed per policy/procedure, catheter/device intact; 07/11/17; 1130 Incision 07/07/17; 1423; chest; 07/07/17 1423 by 08/16/17 1047 by midline; 08/16/17; 1047 Shayy Fuller, RN Kenan liams, Dory M, RN Incision 07/07/17; 1432; knee 07/07/17 1432 by 08/16/17 1 047 by (puncture woulds also Shayy Fuller, RN Willi ams, Dory made at groin and lower M, RN leg to facilitate removal of vein); transverse, laparoscopic punctures (specify); 08/16/17; 1047 Chest Tube 07/07/17; 1522; Left; 07/07/17 1522 by 07/09/17 1303 by lateral; (Lt Pleural Shayy Fuller, VAMSI Kay , Katerin Martinez, Cavity); (24 fr Robbie RN Drain); 07/09/17; 1303 Lumbar/CSF Drain 07/07/17; 1545; Right; 07/07/17 1545 by 7 0400 by medial; knee; Monica Orourke RN Nollet, Mire ille M, collapsible closed RN device; STEPHANIE Khan; Sterile prep and drape, Sterile technique; 7 mm ; 07/08/17; 0400 Chest Tube 07/07/17; 1708; Left; 07/07/17 1708 by 07/09/17 1303 by anterior; mediastinum; Monica Orourke, VAMSI Higginbotham s, Katerin Martinez, 28 fr. ; 07/09/17; 1303 RN Chest Tube 07/07/17; 1708; Right; 07/07/17 1708 by 07/09/17 1303 by anterior; mediastinum; Monica Orourke RN Rosmu s, Katerin Martinez, 28 fr.; 07/09/17; 1303 RN documented in this encounter Social History Tobacco Use Types Packs/Day Years Used Date Former Smoker Cigarettes 3 5 Quit: 07/26/18 68 Smokeless Tobacco: Never Used Alcohol Use Standard Drinks/Week Comments No 0 (1 standard drink = 0.6 oz pure alcoho l) Sex Assigned at Date Recorded Not on file documented as of this encounter OR Notes Anesthesia Postprocedure Evaluation - Ginny Murray MD - 07/08/2017 5:08 PM EST [facility] Department of Anesthesiology Post-procedure Note Patient: Don Fatima Procedure Summary Date Anesthesia Start Anesthesia Stop Room / Location 07/07/17 1335 1836 [facility] OR [facility] MA[facility] OR Procedure Diagnosis Surgeon Responsible Provider @CABG, USING ARTERIAL GRAFT;SINGLE ARTERIAL GRAFT (WRVU 33.75) (N/A Chest); @CABG, TWO VENOUS GRAFTS & ARTERIAL GRAFT (WRVU 7.93) (N/A Chest); ENDOSCOPIC HARVEST VEIN(S) FOR CABG (WRVU 0.31) (Right Leg) (CAD) Yuan Freitas MD Hartman, Gregg S, MD All Anesthesia Providers: Anesthesiologist: Yifan Perez MD Heat Treatment Technician: Ginny Murray MD Most Recent Vitals: 07/08/17 1615 BP: Pulse: Resp: 16 Temp: SpO2: 99% Pain Patient Location: ICU Level of Consciousness: Sedated (Pharmacologic/Intentional) Pain Management: Satisfactory Analgesia PONV: None Cardiovascular Status: Hypotension (received treatment) Respiratory Status: Intubated/Ventilated Postoperative Fluid Status: Intravascular EUvolemia Possible Anesthetic Complications: NONE apparent at time of evaluation Final Primary Anesthesia Type: General (The anesthetic type performed was the same as planned.) Comments: Patient seen in [facility]. Still intubated on pressors. IABP removed this AM. May attempt extubation tonight. Still maintained on level and epi. Anesthesia Preprocedure Evaluation - Ginny Murray MD - 07/06/2017 2:21 PM EST Pre-Anesthesia Evaluation for: Don Fatima a 72 y.o. male. Procedure(s): @CABG, USING ARTERIAL GRAFT;SINGLE ARTERIAL GRAFT (WRVU 33.75) @CABG; 3 VENOUS GRAFTS & ARTERIAL GRAFT (WRVU 10.49) ENDOSCOPIC HARVEST VEIN(S) FOR CABG (WRVU 0.31) Patient Active Problem List Diagnosis ??? STEMI [...] SETUP performed by Manny Mcknight MD at [facility] MAIN OR ??? PRO COLONOSCOPY, REMV LESN, SNARE 01/16/2014 COLONOSCOPY, POLYPECTOMY, REMOVAL LESION BY SNARE performed by Nohemi Jaimes MD at [facility] ENDOSCOPY ??? PRO THYROIDECTOMY 03/28/2013 THYROIDECTOMY, TOTAL OR COMPLETE performed by Manny Mcknight MD at [facility] MAIN OR Social History Substance Use Topics ??? Smoking status: Former Smoker Packs/day: 3.00 Years: 5.00 Types: Cigarettes Quit date: 07/26/1967 ??? Smokeless tobacco: Never Used ??? Alcohol use No History Drug Use No No Known Allergies Medications: MAR and/or home medications have been reviewed. Physical Exam: Most Recent Vitals: 07/06/17 1400 BP: 153/66 Pulse: 91 Resp: 18 Temp: SpO2: 94% Body mass index is 28.43 kg/(m^2). Height: 172.7 cm (5' 8) Weight - Scale: 84.8 kg (186 lb 15.2 oz) Airway Assessment: Mallampati: IV TM distance: >3 FB Neck ROM: full Cardiovascular Assessment: (+) murmur PE comment: Extra click appreciated, likely aortic balloon Pulmonary Assessment: (+) decreased breath sounds Dental Assessment: (+) upper dentures and lower dentures Misc Assessment: Patient is wearing No contact(s). IV access: Peripheral line Other exam findings: IABP in place Anesthesia Plan: ASA 4 general, with a(n) intravenous induction Don Fatima is a 72 y.o. 84.8kg male former smoker with h/o type II DM (A1c 6.8, on insulin, currently on insulin gtt inpt), COPD, PVD< MARIA VICTORIA on CPAP, HTN, controlled GERD s/p Arlin, hyperthyroidism s/p total thyroidectomy, melanoma recently admitted with late STEMI and newly diagnosed ischemic cardiomyopathy (3 vessel CAD< EF 25-29%) presenting for Procedure(s): @CABG, USING ARTERIAL GRAFT;SINGLE ARTERIAL GRAFT (WRVU 33.75) @CABG; 3 VENOUS GRAFTS & ARTERIAL GRAFT (WRVU 10.49) ENDOSCOPIC HARVEST VEIN(S) FOR CABG (WRVU 0.31) with Dr. Freitas. Pt presented in late STEMI and newly diagnosed ischemic cardiomyopathy. Echo revealing WMA and EF 29%, cardiac cath revealing elevated LVEDP at 38 and 3 vessel CAD (LAD, LCX, RCA) and EF on cath 25%, with IABP placed. Now maintained on heparin gtt and nitro gtt (intermittently on and off for BP). Patient's documented history was negative for seizures, CVA, hepatic/renal disease or coagulopathy. Controlled GERD s/p arlin. Hx of MARIA VICTORIA on CPAP. There is no evidence of any recent URI symptoms, fevers/chills, or other signs of infection. Has been afebrile last 24 hours. Denies history of dysphagia, esophagitis. NPO Status: Reviewed and appropriate Meds: meTOPROLOL tartrate, 12.5 mg, Oral, 2 times per day chlorhexidine, 15 mL, Oral, BID aspirin, 81 mg, Oral, Daily levothyroxine, 175 mcg, Oral, QAM sodium chloride 0.9 %, 5 mL, Intravenous, BID insulin regular human, 0.5-16 Units/hr, Intravenous, Change bag every evening atorvastatin, 80 mg, Oral, QPM heparin (porcine) Last Rate: 2,050 Units/hr (07/06/17 1400) nitroPRUSSide 0.2 mg/mL (standard ADULT & Pedi greater than 20kg) infusion Last Rate: 0.5 mcg/kg/min (07/06/17 1300) LORazepam, heparin (porcine) AND heparin (porcine), sodium chloride 0.9 %, lidocaine, nitroGLYcerin, iohexol, dextrose 50%, insulin regular human, potassium chloride OR potassium chloride Allergies: No Known Allergies Anesth hx: previous santiago 2 G1v, EZ mask; last intubation with video for NIM tube placement EKG: NSR, anteroseptal infarct, ST and T wave abnormality ECHO: EF29%, WMA present Cardiac cath: LV 25%, IABP placed prophylaxis; 3 vessel CAD (LAD, LCX, RCA), elevated LVEDP 38 Labs: 07/06/17 07/05/17 07/05/17219 1655 WBC 7.6 10.3* 6.8 HGB 13.4* 14.1 14.0 HCT 39.7* 40.8 41.0 PLATELET 189 204 197 07/06/17 07/06/17 07/05/17 07/05/17 0810 219 2019 1655 NA 141 -- 139 142 K 4.5 3.9 3.8 4.0 CL 101 -- 98 100 CO2 27 -- 27 28 BUN 16 -- 20 19 CREATININE 1.04 -- 1.12 1.04 No results for input(s): AST, ALT, ALKPHOS, BILITOT, BILIDIR in the last 7068 hours. 07/06/17 07/06/17 07/05/17 1124 219 2019 PT 13.3 -- -- INR 1.0 -- -- PTT 52* 52* 32 Type and screen: Active Plan for GA with ETT; standard ASA monitoring. Adequate IV access. -pre-induction arterial line (altho also has intra-aortic balloon pump in place for coronary vessel perfusion in setting of depressed EF) -centra line, PA cath, AV[facility]INO Region - Intrathoracic Cardiac Informed Consent: Anesthetic plan and risks discussed with patient. Use of blood products discussed with patient who consented to blood products. Plan discussed with attending. PAT Staff Note documented in this encounter Plan of Treatment Upcoming Encounters Date Type Specialty Care Team Description 02/19/2022 Laboratory Appointment Lab 02/19/2022 Office Visit Cardiology Liz Poole PA [facility] er Cardiology Dept [place], [place] [address] (Wo rk) 03/12/2022 Office Visit Cardiology Vitaliy Nobles MD [facility] CARDIOLOGY [place], [place] [address] (Wo rk) documented as of this encounter Visit Diagnoses Not on filedocumented in this encounter Administered Medications Inactive Administered Medications - up to 3 most recent administrations Medication Order MAR Action Action Date Dose Rate Site cefUROXime (ZINACEF) injection 1.5 Given 07/07/2017 5:22 PM EST 1.5 g g PRN, Starting on Wed07/07/17 at 1415, Until Wed07/07/17 at 1836, Anesthesia Intra-op, Routine Given 07/07/2017 2:15 PM EST 1.5 g ePHEDrine 5 mg/mL multi-dose injection Given 07/07/2017 2:15 PM EST 10 mg PRN, Starting on Wed07/07/17 at 1415, Until Wed07/07/17 at 1836, Anesthesia Intra-op, Routine EPINEPHrine 2 mg in dextrose 5% New Bag 07/07/2017 5:02 PM EST 4 mcg/min 30 mL/hr 250 mL infusion CONTINUOUS PRN, Starting on Wed07/07/17 at 1702, Until Wed07/07/17 at 1836, Anesthesia Intra-op fentaNYL 50 mcg/mL multi-dose injection Given 07/07/2017 2:31 PM EST 250 mcg PRN, Starting on Wed07/07/17 at 1343, Until Wed07/07/17 at 1836, Pain, Anesthesia Intra-op, Routine Given 07/07/2017 2:28 PM EST 250 mcg Given 07/07/2017 1:44 PM EST 250 mcg heparin (porcine) injection Given 07/07/2017 3:43 PM EST 50,000 Units ONCE PRN, Starting on Wed07/07/17 at 1350, Until Wed07/07/17 at 1821, Intra-Operative (Intra-Procedure), Routine Given 07/07/2017 3:26 PM EST 25,000 Units Given 07/07/2017 1:50 PM EST 5,000 Units insulin regular human Rate/Dose Change 07/07/2017 5:37 10 Units/hr 10 mL/hr (HumuLIN;NovoLIN) 1unit/mL PM EST 150 Units in sodium chloride 0.9% 150 mL infusion CONTINUOUS PRN, Starting on Wed07/07/17 at 1533, Until Wed07/07/17 at 1836, Anesthesia Intra-op, Routine Rate/Dose Change 07/07/2017 4:45 PM EST 8 Units/hr 8 mL/hr Rate/Dose Change 07/07/2017 4:15 PM EST 6 Units/hr 6 mL/hr insulin regular human VIAL injection Given 07/07/2017 5:37 PM EST 5 Units PRN, Starting on Wed07/07/17 at 1615, Until Wed07/07/17 at 1836, Anesthesia Intra-op, Routine Given 07/07/2017 4:45 PM EST 5 Units Given 07/07/2017 4:15 PM EST 5 Units lactated Ringers infusion New Bag 07/07/2017 1:35 PM EST CONTINUOUS PRN, Starting on Wed07/07/17 at 1335, Until Wed07/07/17 at 1836, Anesthesia Intra-op midazolam (PF) (VERSED) 1 mg/mL multi-dose Given 07/07/2017 1:43 PM EST 5 mg injection PRN, Starting on Wed07/07/17 at 1343, Until Wed07/07/17 at 1836, Sleep, Anesthesia Intra-op, Routine NORepinephrine 16 mcg/mL New Bag 07/07/2017 2:21 PM EST 2 mcg/min 7.5 mL/hr (standard ADULT and Pedi greater than 20 kg) infusion CONTINUOUS PRN, Starting on Wed07/07/17 at 1421, Until Wed07/07/17 at 1836, Anesthesia Intra-op, Routine PHENYLephrine (AMBREEN-SYNEPHRINE) New Bag 07/07/2017 3:11 PM 15 mcg/m in 11.3 mL/hr 20 mg in sodium chloride 250 mL EST (standard ADULT & Pedi greater than 20kg) infusion CONTINUOUS PRN, Starting on Wed07/07/17 at 1511, Until Wed07/07/17 at 1836, Anesthesia Intra-op, Routine PHENYLephrine in NS (PF) (AMBREEN-SYNEPHRINE) 0.8 Given 2:55 PM EST 80 mcg mg/10 mL (80 mcg/mL) multi-dose injection Syrg PRN, Starting on Wed07/07/17 at 1405, Until Wed07/07/17 at 1836, Anesthesia Intra-op, Routine Given 07/07/2017 2:05 PM EST 160 mcg Given 07/07/2017 2:01 PM EST 160 mcg propofol (DIPRIVAN) 10 mg/mL bolus injection Given 7 1:43 PM EST 50 mg (Anesthesia) PRN, Starting on Wed07/07/17 at 1343, Until Wed07/07/17 at 1836, Anesthesia Intra-op propofol (DIPRIVAN) infusion New Bag 07/07/2017 5:43 PM 20 mcg/kg/min 9.9 mL/hr CONTINUOUS PRN, Starting on Wed07/07/17 at 1743, Until Wed07/07/17 at 1836, Anesthesia Intra-op, Routine protamine injection Given 07/07/2017 5:22 PM EST 250 mg PRN, Starting on Wed07/07/17 at 1722, Until Wed07/07/17 at 1836, Anesthesia Intra-op, Routine sodium chloride 0.9% infusion New Bag 07/07/2017 1:56 PM EST CONTINUOUS PRN, Starting on Wed07/07/17 at 1356, Until Wed07/07/17 at 1836, Anesthesia Intra-op sodium chloride 0.9% infusion New Bag 07/07/2017 1:43 PM EST CONTINUOUS PRN, Starting on Wed07/07/17 at 1343, Until Wed07/07/17 at 1836, Anesthesia Intra-op tranexamic acid (CYKLOKAPRON) 100 mg/mL bolus Given 2:15 PM EST 820 mg injection (Anesthesia) PRN, Starting on Wed07/07/17 at 1415, Until Wed07/07/17 at 1836, Anesthesia Intra-op, Routine tranexamic acid (CYKLOKAPRON) New Bag 07/07/2017 2:20 PM 1 mg/kg/h r 0.8 mL/hr injection EST CONTINUOUS PRN, Starting on Wed07/07/17 at 1420, Until Wed07/07/17 at 1836, Anesthesia Intra-op, Routine vecuronium (NORCURON) injection Given 07/07/2017 3:26 PM EST 8 mg PRN, Starting on Wed07/07/17 at 1343, Until Wed07/07/17 at 1836, Anesthesia Intra-op, Routine Given 07/07/2017 1:43 PM EST 12 mg documented in this encounter Care Teams Fly Frame Tender Relationship Specialty Start Date End Date Lovely Vicente MD PCP - General 04/16/[address] [place] [address] documented as of this encounter
--- OUTSIDE RECORDS SUMMARY | 2022-02-06 13:40 | XMS_ITS | Encounter Summary ---
:1945 Author Organization [place] [address] Care Team Providers Name Role Phone Lovely Vicente MD Primary Care Provider Reason for Visit Reason Onset Date Comments Medication Refill 12/24/2016 Encounter Details Date Type Department Care Team Description 12/24/2016 Refill Endocrinology at [facility] Luz Stallings MD [facility] [place] [address] ENDOCRINOLOGY DEPT [phone] [place], [place] [address] (Wo rk) Social History Tobacco Use Types Packs/Day Years Used Date Former Smoker Smokeless Tobacco: Never Used Alcohol Use Standard Drinks/Week Comments No 0 (1 standard drink = 0.6 oz pure alcoho l) Sex Assigned at Date Recorded Not on file documented as of this encounter Plan of Treatment Upcoming Encounters Date Type Specialty Care Team Description 02/19/2022 Laboratory Appointment Lab 02/19/2022 Office Visit Cardiology Liz Poole PA [facility] er Cardiology Dept [place], [place] [address] (Wo rk) 03/12/2022 Office Visit Cardiology Vitaliy Nobles MD [facility] ER CARDIOLOGY [place], [place] [address] (Wo rk) documented as of this encounter Visit Diagnoses Not on filedocumented in this encounter Care Teams Quality Control Specialist Relationship Specialty Start Date End Date Lovely Vicente MD PCP - General 04/16/[address] [place] [address] documented as of this encounter
--- OUTSIDE RECORDS SUMMARY | 2022-02-06 13:40 | XMS_ITS | Encounter Summary ---
:1945 Author Organization [facility] [place] [address] Care Team Providers Name Role Phone Lovely Vicente MD Primary Care Provider Encounter Details Date Type Department Care Team Description 09/03/2016 Office Visit Endocrinology at [facility] Maria Ines Stallings of [facility] [place] [address] [place] [address] ENDOCRINOLOGY DEPT [place], [place] [address] Social History Tobacco Use Types Packs/Day Years Used Date Former Smoker Smokeless Tobacco: Never Used Alcohol Use Standard Drinks/Week Comments No 0 (1 standard drink = 0.6 oz pure alcoho l) Sex Assigned at Date Recorded Not on file documented as of this encounter Last Filed Vital Signs Vital Sign Reading Time Taken Comments Blood Pressure 155/91 09/03/2016 11:16 AM EST Pulse 72 09/03/2016 11:16 AM EST Temperature - - Respiratory Rate - - Oxygen Saturation - - Inhaled Oxygen Concentration - - Weight 87 kg (191 lb 14.4 oz) 09/03/2016 11:16 AM EST Height 172.7 cm (5' 8) 09/03/2016 11:16 AM EST Body Mass Index 29.18 09/03/2016 11:16 AM EST documented in this encounter Progress Notes Luz Prescott MD - 09/03/2016 11:30 AM EST Endocrinology Clinic Follow-up Visit Reason for Visit: microPTC surveillance - 3 year HISTORY OF PRESENT ILLNESS: Mr. Don Fatima is a 71 y.o. 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 He was last seen in follow-up last year in 05/2015. No complaints, been doing well. No new lumps or masses in neck that he's noticed. PAST MEDICAL HISTORY: Patient Active Problem List Diagnosis Date Noted ??? BPH (benign prostatic hyperplasia) 11/28/2013 ??? Atypical nevus of abdominal wall 07/31/2013 ??? Urinary retention 04/05/2013 ??? MARIA VICTORIA (obstructive sleep apnea) on CPAP 03/31/2013 ??? Goiter 01/25/2013 ??? Seborrheic psoriasis- scalp and ingtergluteal area 10/04/2012 ??? Skin lesion of chest wall 10/04/2012 ??? Melanoma 09/22/2011 MEDICATIONS: Medications 09/03/16 1158 Medication Sig Taking? ascorbic acid, vitamin C, (VITAMIN C) 500 mg Tablet Take 500 mg by mouth daily. Winter months only Yes ACCU-CHEK TERA PLUS TEST STRP Strip 1 strip by Other route every morning. Yes LANTUS SOLOSTAR Insulin Pen Inject 22-27 Units subcutaneously nightly. Yes HUMALOG KWIKPEN Insulin Pen Inject 16-20 Units subcutaneously 3 times daily (with meals). Yes BD INSULIN PEN NEEDLE UF MINI 31 gauge x 3/16 Needle 1 each by Other route 4 times daily. Yes levothyroxine (SYNTHROID) 175 mcg Tablet Take 1 tablet by mouth daily. Yes turmeric root extract 500 mg Capsule Take 500 mg by mouth. Yes meTOPROLOL succinate (TOPROL-XL) 25 mg Tablet Sustained Release 24 hr Take 25 mg by mouth daily. Yes Magnesium 200 mg Tablet Take 500 mg by mouth daily. Yes fish oil-omega-3 fatty acids 1,000 mg Capsule Take 2 g by mouth daily. Yes aspirin 81 mg EC tablet Take 81 mg by mouth every other day. Yes lisinopril (PRINIVIL;ZESTRIL) 20 mg tablet Take 20 mg by mouth daily. Yes metFORMIN (GLUCOPHAGE) 850 mg tablet Take 850 mg by mouth 2 times daily (with meals). Takes 1 tab inmorning, 2 tabs in evening Yes fluocinolone acetonide (SYNALAR) 0.01 % external solution Twice daily to less severe areas of psoriasis Patient not taking: Reported on 09/03/2016 ALLERGIES: No Known Allergies SOCIAL HISTORY: History Smoking Status ??? Former Smoker Smokeless Tobacco ??? Never Used FAMILY HISTORY: No family history on file. REVIEW OF SYSTEMS: All 12 systems reviewed and negative except as noted per HPI. PHYSICAL EXAM: Vitals Office Visit from 09/03/2016 in Endocrinology Weight - Scale 87 kg (191 lb 14.4 oz) Height 172.7 cm (5' 8) BSA (Calculated - sq m) 2.04 sq meters BMI (Calculated) 29.2 Heart Rate 72 BP (!) 155/91 Gen: NAD, AAOx3, speaking full sentences, calm pleasant demeanor, slightly overweight habitus Skin: warm and dry Eyes: PERRL, EOMI, anicteric sclerae without injection, no proptosis or lid lag ENT: moist oral mucosa Neck: surgically absent thyroid no lymphadenopathy Pulm: CTAB, no stridor Cardiac: reg s1s2, no m/r/g MSK: 5/5 strength in all muscle groups of the upper and lower extremities, no LE edema Neuro: 2+ patellar DTRs, no clonus, no delay of the relaxation phase, no tremor. ASSESSMENT: 71 yo M with hx microPTC s/p total thyroidectomy 03/2013, currently with BATSHEVA at a little over 3 years out from treatment. PLAN: --follow-up in 1 year for 4-year surveillance, labs 1 hour prior. --await today's Tg level. --TSH is mid-normal, which is above goal. To make sure to space his levothyroxine by at least 30 minprior to food and other meds, and at least 4 hours prior to his magnesium pill. LUZ PRESCOTT MD Belt Molderlegal administrator Section of Endocrinology [facility] Luz Prescott MD - 09/03/2016 11:30 AM EST THYROID ULTRASOUND Performed by: Luz Prescott MD Indication: PTC, f/u US Date: 09/03/16 Comparison: Real time images of the thyroid gland were obtained using a BK ultrasound machine. All measurements are given as AP x Transverse x Longitudinal Right Lobe: Absent Left Lobe: Absent Isthmus: Absent Central/Lateral neck: no morphologically abnormal lymph nodes. Impression: No sonographic evidence of recurrence. LUZ PRESCOTT MD Belt Molderlegal administrator Section of Endocrinology [facility] documented in this encounter Plan of Treatment Upcoming Encounters Date Type Specialty Care Team Description 02/19/2022 Laboratory Appointment Lab 02/19/2022 Office Visit Cardiology Liz Poole PA [facility] Cardiology Dept [place], [place] [address] (Wo rk) 03/12/2022 Office Visit Cardiology Vitaliy Nobles MD [facility] CARDIOLOGY [place], [place] [address] (Wo rk) documented as of this encounter Results Thyroglobulin (09/07/2017 2:41 PM EST) athologist Signature Thyroglobulin 1.4 <=54.9 [facility] ng/mL [facility] Comment: Thyroglobulin levels may be unreliable [...] Thyroglob Ab <20.0 0.0 - 40.0 IU/mL [facility] Comment: Assay performed is the DPC Immulite Tg-A b immunometric assay. (Cutoff for TgAb negativity is <20 IU/ml ) Specimen Anatomical Collection Method Collection Time Receive d Time (Source) Location / / Volume Laterality Blood specimen 09/07/2017 2:41 PM 018 2:46 (specimen) EST PM EST Resulting Agency Comment Spec In Lab Luz Prescott MD CHEMISTRY ORDERABLES Performing Organization Address City/[facility]/ZIP Code Phon e Number [address] TSH (09/07/2017 2:41 PM EST) athologist Signature TSH 3.93 0.27 - 4.20 KATALINA DAVIS mlU/ML [facility] Specimen Anatomical Collection Method Collection Time Receive d Time (Source) Location / / Volume Laterality Blood specimen 09/07/2017 2:41 PM 018 2:46 (specimen) EST PM EST Resulting Agency Comment Spec In Lab Luz Prescott MD CHEMISTRY ORDERABLES Performing Organization Address City/[facility] Phon e Number [address] Thyroglobulin (09/03/2016 11:07 AM EST) athologist Signature Thyroglobulin <0.4 <=54.9 KATALINA DAVIS ng/mL [facility] Comment: Interpret with caution. Tg levels may be unreliable and falsely low in TgAb positive samples (TgAb <20 is consistent with TgAb negativity). Serial TgAb measurements may be valuable as a surrog ate tumor marker test and should be considered (Mau LM and [place] Thy roid 2003;13:1-126) A clinical cutoff of <2.0 ng/ml should b e used for athyrotic individuals. Pediatric reference ranges have not been established. Serum Tg measurements on T4 hormone supp ression protocol are less sensitive for detecting residual thyroid tissue and me tastatic disease compared to those made on TSH stimulation protocol. Thus a low serum Tg (<5.0 ng/ml) or an undetectable Tg level on T4 hormone supp ression therapy does not exclude recurrent or metastatic disease. (Jaiv ACEVEDO et al. AACE Clinical Practice Guidelines for the Management of Thyroid Carcinoma. Endocrine Practice 1997;3:60-71). Tg levels after rhTSH administration may be lower than those obtained with T4 withdrawal protocol (Fallon DALLAS et al. J Clin Endo Metab 1999;84:2570-6762). Assay performed using the DPC Immulite T g immunometric assay. (lowest detection limit is <0.4 ng/ml). Thyroglob Ab <20.0 0.0 - 40.0 IU/mL [facility] Comment: Assay performed is the DPC Immulite Tg-A b immunometric assay. (Cutoff for TgAb negativity is <20 IU/ml ) Specimen Anatomical Collection Method Collection Time Receive d Time (Source) Location / / Volume Laterality Blood specimen 09/03/2016 11: 7 1:37 (specimen) AM EST PM EST Resulting Agency Comment Spec In Lab Luz Prescott MD CHEMISTRY ORDERABLES Performing Organization Address City/[facility]/[place] [address] TSH (09/03/2016 11:07 AM EST) P athologist Signature TSH 3.01 0.27 - 4.20 [facility] mcIU/mL [facility] Specimen Anatomical Collection Method Collection Time Receive d Time (Source) Location / / Volume Laterality Blood specimen 09/03/2016 11:07 7 (specimen) AM EST 11:22 AM EST Resulting Agency Comment Spec In Lab Luz Prescott MD CHEMISTRY ORDERABLES Performing Organization Address City/[facility]/[place] [address] documented in this encounter Visit Diagnoses Diagnosis Hx of papillary thyroid carcinoma Personal history of malignant neoplasm o f thyroid documented in this encounter Care Teams Legal Summer Intern Relationship Specialty Start Date End Date Lovely Vicente MD PCP - General 04/16/[address] [place] [address] documented as of this encounter
--- OUTSIDE RECORDS SUMMARY | 2022-02-06 13:40 | XMS_ITS | Encounter Summary ---
:1945 Author Organization [facility] [place] [address] Care Team Providers Name Role Phone Lovely Vicente MD Primary Care Provider Encounter Details Date Type Department Care Team Description 07/10/2016 Telephone Dermatology at [facility] Rigoberto White III, [address] [place] [address] [facility] [phone] [facility] [place] [place] [address] (Wo rk) Social History Tobacco Use Types Packs/Day Years Used Date Former Smoker Smokeless Tobacco: Never Used Alcohol Use Standard Drinks/Week Comments No 0 (1 standard drink = 0.6 oz pure alcoho l) Sex Assigned at Date Recorded Not on file documented as of this encounter Miscellaneous Notes Telephone Encounter - Ginny Christiansen LPN - 07/10/2016 9:32 AM EST ----- Message from Rigoberto Garcia III, MD sent at 07/06/2016 9:41 PM EST ----- Please check on the lesions we treated. Thanks. See as planned if needed, sooner if problems arise. I called and left a message for him to call if the spots treated did not resolve. documented in this encounter Plan of Treatment Upcoming Encounters Date Type Specialty Care Team Description 02/19/2022 Laboratory Appointment Lab 02/19/2022 Office Visit Cardiology [facility] [place] [address] (Wo rk) 03/12/2022 Office Visit Cardiology Vitaliy Nobles MD [facility] CARDIOLOGY [place], [place] [address] (Wo rk) documented as of this encounter Visit Diagnoses Not on filedocumented in this encounter Care Teams Certifed Refrigeration Operator Relationship Specialty Start Date End Date Lovely Vicente MD PCP - General 04/16/[address] [place] [address] documented as of this encounter
--- OUTSIDE RECORDS SUMMARY | 2022-02-06 13:40 | XMS_ITS | Encounter Summary ---
:1945 Author Organization [place] [address] Care Team Providers Name Role Phone Angela Sotelo APRN Primary Care Provider Encounter Details Date Type Department Care Team Description 01/16/2014 Surgery Gastroenterology at [facility] Nohemi wSann, COLONOSCOPY, [facility] Jorge mcnamara MD POLYPECTOM[place], [place] [address] [facility] LESION BY SNARE ([facility] [phone] DR Cintron) GASTROENTEROLOGY DEPT. [place], [place] [address] Social History Tobacco Use Types Packs/Day Years Used Date Former Smoker Alcohol Use Standard Drinks/Week Comments No 0 (1 standard drink = 0.6 oz pure alcoho l) Sex Assigned at Date Recorded Not on file documented as of this encounter Last Filed Vital Signs Vital Sign Reading Time Taken Comments Blood Pressure 108/65 01/16/2014 9:40 AM EDT Pulse 80 01/16/2014 9:40 AM EDT Temperature 36.6 ??C (97.9 ??F) 01/16/2014 8:09 AM EDT Respiratory Rate 17 01/16/2014 9:40 AM EDT Oxygen Saturation 98% 01/16/2014 9:40 AM EDT Inhaled Oxygen Concentration - - Weight 83.9 kg (185 lb) 01/16/2014 8:09 AM EDT Height 172.7 cm (5' 8) 01/16/2014 8:09 AM EDT Body Mass Index 28.13 01/16/2014 8:09 AM EDT documented in this encounter Discharge Instructions Discharge InstructionsCorina Pang RN - 01/16/2014 9:48 AM EDT Colonoscopy and polyp removal What to expect after the procedure You may feel a little more gassy or bloated than usual, this is normal. You should expect the return of normal bowel function in the next 2 to 3 days. Because some polyps were removed, you may see a little blood with the next few bowel movements, this should be a small amount ( less than a few tablespoons) and will resolve on it's own. ACTIVITY Because of the sedation that you received Your judgement and reaction time are effected ?? Go home and rest for the remainder for the day. You may resume your normal activities tomorrow ?? Change from one position to the next slowly because you may lose your balance unexpectedly. ?? Be careful on stairs, as you may be unsteady. ?? Avoid strenuous activity for 48 to 72 hrs FOR THE NEXT 24 HRS ?? DO NOT DRIVE OR OPERATE MACHINERY ?? DO NOT DRINK ALCOHOLIC BEVERAGES ?? DO NOT SIGN LEGAL DOCUMENTS ?? If you are a smoker: DO NOT SMOKE WHILE YOU ARE ALONE Diet ?? Start by eating small portions of foods that ordinarily will not upset your stomach, avoid gas producing foods for the next few days. ?? Be gentle with what you choose to start with ?? A soft diet may be helpful for the next 3 days as this may help to keep your stools soft. ?? Drink plenty of fluids ( unless your doctor has told you not to). Medicines Avoid medicines that influence the way your blood clots for the next week. These would include anti-inflammatory medicine, such as ibuprofen( Advil, Motrin) and naproxen ( Aleve). If you need something for discomfort, Tylenol (Acetaminophen) is safe if used as directed. Your Doctor will tell you whento restart your prescribed blood thinners The IV site-- slight tenderness, or redness is normal, you can use warm compresses if you get concerned. If the tenderness +/or redness increases or foul drainage and a red streak occurs, please contact your PCP immediately. When should you call for help? Call 911 anytime you think you may need emergency care. For example If you pass out (loss of consciousness) If you pass maroon or bloody stools If you have severe belly pain Call your healthcare provider or seek immediate medical care if: Your stools are black or tar like Your stools have streaks of blood that is more pronounced with each BM You have belly pain, or your belly is swollen and firm You vomit You have a fever You are very dizzy Watch closely for changes in your health, and be sure to contact your doctor if you have any problems. Your Doctor will let you know when you will need your next colonoscopy. The results of your test andyour risk for colorectal cancer will help your doctor decide how often you need to be checked. [facility] [phone] 8a-5p Same Day Endo [phone] 7a-8p Otherwise contact [phone] and ask to speak to the box sorter stone cutter Follow up care is a shelton part of your treatment and safety. Be sure to make and go to all appointments, and call your doctor if you are having problems. Discharge instructions reviewed with patient who expresses understanding Patient InstructionsButterNohemi jauregui MD - 01/16/2014 9:49 AM EDT Please see Recommendations in the Provation procedure report which is documented in the procedural note in E-DH. documented in this encounter Medications at Time of Discharge Medication Sig Dispensed Refills Start Date End Date UNABLE TO FIND Inject 24 Units 0 06/05 subcutaneously nightly. Med Name: Insulin triamcinolone Apply twice daily to 30 g 1 07/31/2013 1 (KENALOG) 0.1 % psoriasis on the body. creamIndications: Neoplasm of unspecified nature of bone, soft tissue, and skin levothyroxine Take 137 mcg by mouth 30 tablet 2 03/29/2013 04/30/2014 (SYNTHROID) 137 mcg every morning. tablet CA CITRATE/MGOX/VIT Take by mouth. 0 1 D3/B6/MIN (CALCIUM CITRATE PLUS ORAL) aspirin 81 mg EC Take 81 mg by mouth 0 01/16/2019 tablet daily. lisinopril Take 20 mg by mouth 0 07/14 (PRINIVIL;ZESTRIL) 20 daily. mg tablet metFORMIN (GLUCOPHAGE) Take 850 mg by mouth 2 0 07/14/2017 850 mg tablet times daily (with meals). Takes 1 tab in morning, 2 tabs in evening Cholecalciferol, Take 1,000 Units by 0 06/05/2015 Vitamin D3, (VITAMIN mouth daily. D) 1,000 unit Cap metoprolol-hydrochloro Take 1 tablet by mouth 0 06/05/2015 thiazide (LOPRESSOR 2 times daily. HCT) 50-25 mg per tablet clobetasol (TEMOVATE) Apply twice daily for 2 50 mL 1 0 10/04/2012 04/26/2014 0.05 % external weeks then on weekends solutionIndications: for psoriasis Psoriasis fluocinolone acetonide Twice daily to less 60 mL 2 09/2308/16/2017 (SYNALAR) 0.01 % severe areas of external psoriasis solutionIndications: Psoriasis omeprazole (PRILOSEC) Take 20 mg by mouth 0 06/05/2015 20 mg capsule daily. glyBURIDE (DIABETA) 5 5MG = 1 Tablet(s), PO, 0 06/05/2015 mg tablet Once daily documented as of this encounter H&P Notes Nohemi Swann MD - 01/16/2014 8:53 AM EDT Gastroenterology and Hepatology Pre-Procedure History and Physical Exam Procedure: Colonoscopy: Indication: hx adenoma Patient Active Problem List Diagnosis Code ??? Melanoma 172.9 ??? Seborrheic psoriasis- scalp and ingtergluteal area 696.1 ??? Skin lesion of chest wall 709.9 ??? Goiter 240.9 ??? MARIA VICTORIA (obstructive sleep apnea) on CPAP 327.23 ??? Urinary retention 788.20 ??? Atypical nevus of abdominal wall 216.5 ??? BPH (benign prostatic hyperplasia) 600.90 EXAM: HEENT: Airway examined, oropharynx clear LUNGS: Clear to auscultation HEART: Regular rate and rhythm, normal S1, S2 ABDOMEN: Normal bowel sounds, soft, non tender, non distended, A/P Proceed with the planned endoscopic procedure. Risks and benefits of the procedure explained to the patient. Consent signed. documented in this encounter Miscellaneous Notes Miscellaneous - Provider, Scanning - 01/16/2014 9:32 PM EDT Miscellaneous - Provider, Scanning - 01/16/2014 2:40 PM EDT Op Note - Nohemi Swann MD - 01/16/2014 9:49 AM EDT [facility] Operative Note Patient Name: Gregory Fatima : [id number] MR#: [id number] Case Date: 01/16/2014 Surgeon: Surgeon(s) and Role: * Nohemi Swann MD - Primary Preoperative diagnosis: 5 yr surv. Full procedure note is documented under the Procedure section of eDH. documented in this encounter Plan of Treatment Upcoming Encounters Date Type Specialty Care Team Description 02/19/2022 Laboratory Appointment Lab 02/19/2022 Office Visit Cardiology Liz Poole PA [facility] er Cardiology Dept [place], [place] [address] (Wo lissa) 03/12/2022 Office Visit Cardiology Vitaliy Nobles MD [facility] ER [address] [place], [place] [address] (Wo lissa) documented as of this encounter Procedures Procedure Name Priority Date/Time Associated Comments Diagnosis SURGICAL PATHOLOGY Routine 01/16/2014 9:53 AM Res ults for this REPORT EDT procedure are i n the results section. SPECIMEN TO PATHOLOGY Routine 01/16/2014 9:53 AM Results for this EDT procedure are i n the results section. SPECIMEN TO PATHOLOGY Routine 01/16/2014 9:53 AM Results for this EDT procedure are i n the results section. COLONOSCOPY, 01/16/2014 8:52 AM 5 yr surv. POLYPECTOMY, REMOVAL EDT LESION BY SNARE ([facility] 4.67) COLONOSCOPY Routine 01/16/2014 7:25 AM Results f or this EDT procedure are i n the results section. documented in this encounter Results Surgical Pathology Report (01/16/2014 9:53 AM EDT) [facility] Method Time Signature Surgical CERNER Pathology ? [facility] Report ? Provider: ?? NOHEMI SWANN ?Pt. Name: ?? SURINDER ALEGRE, GREGORY Mccollum ? Acc #: ?[id number] ?Pt. MRN: ?[id number] ? Col Date: ?? 4 ? /Sex: ?1945,(68 years),Male ? Rec Date: ?? 01/16/2014 ? LOC: ?4T ? SURGICAL PATHOLOGY ? ---Pathologic Diagnosis--- ? Endoscopic biopsies - ? A. Hyperplastic polyp and colonic mucosa within ada l limits. ? B. Tubular adenoma. ? CR-PX ? 01/17/14 ? AAS ? 01/17/14 Verified by: ? Sona Zapata MD ? Pathologist ? (Electronic Si gnature) ? The attending pathologist whose signature appears o n this report has ? reviewed all diagnostic slides and has edited the edita ss and/or ? microscopic portion of the report in rendering the fi nal pathologic ? diagnosis. ? ---Gross Description--- ? A - Labeled/Fixative: Cecal polyp and biopsy of lipom a, formalin. ? Quantity/Size: Two, 0.1 and 0.4 cm. ? Tissue Description: Polypoid cordova soft tissues. ? Sections/Processing: (T1) ? B - Labeled/Fixative: Descending polyp, formalin. ? Quantity/Size: Three, averaging 0.2 cm. ? Tissue Description: P olypoid cordova soft tissues, adnexa mucus and green-brown ? debris. ? Sections/Processing: (T1) ??shb ? ---Clinical Information--- ? Specimen Submitted: ? A - Cecal polyp and biopsy of lipoma ? B - Desc polyp ? Clinical History: ? History polyps ? Clinical Diagnosis: ? Same Specimen (Source) Anatomical Collection Method Collection Time Re ceived Time Location / / Volume Laterality 01/16/2014 9:53 AM EDT Nohemi Swann MD PATHOLOGY/CYTOLOGY ORDERABLE S Performing Organization Address City/State/[place] [address] CERNER MILLENNIUM Specimen to Pathology (surgical or derm) (01/16/2014 9:53 AM EDT) Specimen Anatomical Collection Method Collection Time Receive d Time (Source) Location / / Volume Laterality AP Specimen 01/16/2014 9:53 AM 201 4 9:53 EDT AM EDT Narrative CERNER MILLENNIUM - 01/16/2014 9:53 AM E DT Specimen requisition ordered. ??Separate Pathology report to follow Nohemi Swann MD PATHOLOGY/CYTOLOGY ORDERABLE S Performing Organization Address City/[facility]/[place] [address] CERNER MILLENNIUM Specimen to Pathology (surgical or derm) (01/16/2014 9:53 AM EDT) Specimen Anatomical Collection Method Collection Time Receive d Time (Source) Location / / Volume Laterality AP Specimen 01/16/2014 9:53 AM 01/16/201 4 9:53 EDT AM EDT Narrative RAKESH VILLALOBOSENNIUM - 01/16/2014 9:53 AM E DT Specimen requisition ordered. ??Separate Pathology report to follow Nohemi Swnan MD PATHOLOGY/CYTOLOGY ORDERABLE S Performing Organization Address [facility]/State/[place] [address] CERKERI MILLENNIUM COLONOSCOPY (01/16/2014 7:25 AM EDT) [facility] Method Time Signature COLONOSCOPY [facility] Endoscopy Patient Name: Gregory Fatima ? Procedure Date: 01/16/2014 7:25 AM ? N: [id number] ? Date of : 1945 ? Age: 68 ? Order #: [id number] ? Procedure: ? Colonoscopy Indications: ? High risk colon cancer surveillance : ? 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 dm on metformin with bs ~ 110 this ? am,s/p melanoma years ago, os a, ? goiter s/p surgery, p Providers: ? Nohemi Swann MD, Blanca xiong, ? RN, Jacquie Renner RN Referring MD: ?Angela Sotelo MD Medicines: ? Midazolam 4.5 mg IV, Meperidine 10 0 ? mg IV Complications: ? No immediate complications. Procedure: ? Pre-Anesthesia Assessment: ? - Prior to the procedure, a H istory ? and Physical was performed, a nd ? patient medications, allergie s and ? sensitivities were reviewed. The ? patient's tolerance of previo us ? anesthesia was reviewed. ? - The risks and benefits of t he ? procedure and the sedation op tions ? and risks were discussed with the ? patient. All questions were a nswered ? and informed consent was obta ined. ? - Airway Examination: normal ? oropharyngeal airway and neck ? mobility. ? - Respiratory Examination: cl ear to ? auscultation. ? - CV Examination: normal. ? - ASA Grade Assessment: II - A ? patient with mild systemic di sease. ? - After reviewing the risks a nd ? benefits, the patient was charly med in ? satisfactory condition to und ergo the ? procedure. ? - The anesthesia plan was to use ? moderate sedation/analgesia ? (conscious sedation). ? - Immediately prior to admini stration ? of medications, the patient w as ? re-assessed for adequacy to r eceive ? sedatives. ? - Sedation was administered b y an ? endoscopy nurse. The sedation level ? attained was moderate. ? - The heart rate, respiratory rate, ? oxygen saturations, blood pre ssure, ? adequacy of pulmonary ventila tion, ? and response to care were mon itored ? throughout the procedure. ? - The physical status of the patient ? was re-assessed after the pro cedure. ? The procedure, indications, b enefits, ? risks and alternatives were e xplained ? to the patient. Specifically ? discussed were potential ? complications including, but not ? limited to, bleeding, perfora tion, ? infection, missing a cancer, and ? adverse medication reactions. The ? patient was placed in the lef t ? lateral decubitus position, a nd a ? digital rectal exam was perfo rmed. ? The Colonoscope was inserted in the ? anus and under direct visuali zation, ? advanced to the terminal ileu m, with ? identification of the appendi ceal ? orifice and IC valve. Careful ? inspection was made as the ? colonoscope was withdrawn. Th e ? quality of the bowel preparat ion was ? good. ? Findings: ? A sessile polyp was found in the cecum. The polyp was ? 3 mm in size. The polyp was removed with a cold ? snare. Resection and retrieval were complete. ? Estimated blood loss was minimal. ? - Biopsy of an ascending lipoma (clear pillow sign ? etc) was placed in jar with cecal polyp ? A flat polyp was found in the descending colon. The ? polyp was 4 mm in size. The polyp was removed with a ? cold snare (after hot snare slid off the polyp). ? Resection and retrieval were complete. Estimated ? blood loss was minimal. ? Impression: ?- One 3 mm polyp in the cecum. ? Resected and retrieved. Biops y of ? lipoma in ascending ? - One 4 mm polyp in the desce nding ? colon. Resected and retrieved . Recommendation: ?- Repeat colonoscopy in 5 years for ? surveillance (hx TA, polyps t jimmy). ? - Return to primary care phys ician. ? Nohemi Swann MD 01/16/2014 10:04 AM This report has been signed electronically. Number of Addenda: 0 Note Initiated On: 01/16/2014 7:25 AM Specimen (Source) Anatomical Collection Method Collection Time Re ceived Time Location / / Volume Laterality 01/16/2014 7:25 AM EDT Angela Sotelo PROJECT LEAD GENERAL SURGICAL ORDERABLES Performing Organization Address City/State/ZIP Code Phon e Number [facility] documented in this encounter Visit Diagnoses Not on filedocumented in this encounter Administered Medications Inactive Administered Medications - up to 3 most recent administrations Medication Order MAR Action Action Date Dose Rate Site meperidine (PF) (DEMEROL) 100 Given 01/16/2014 9:11 AM EDT 25 mg Right Arm mg/mL carpuject ONCE PRN, Starting on Wed01/16/14 at 0856, Until Wed01/16/14 at 1036, Pain, Intra-Operative (Intra-Procedure), Routine Given 01/16/2014 9:02 AM EDT 25 mg Right Arm Given 01/16/2014 8:56 AM EDT 50 mg Right Arm midazolam (PF) (VERSED) 1 mg/mL Given 01/16/2014 9:14 AM EDT 1 m g Right Arm injection ONCE PRN, Starting on Wed01/16/14 at 0856, Until Wed01/16/14 at 1036, Sleep, Intra-Operative (Intra-Procedure), Routine Given 01/16/2014 9:11 AM EDT 0.5 mg Right Arm Given 01/16/2014 9:02 AM EDT 1 mg Right Arm documented in this encounter Active and Recently Administered Medications Times are shown in EDT. PRN Medication Order 01/14/2014 01/15/2014 01/16/2014 meperidine (PF) (DEMEROL) 100 mg/mL carpuject (CANCELED) 0856 (Given - Provider: Blanca Samuel RN)0902 (Given - Provider: Blanca Samuel RN)0911 (Given - Provider: Blanca Samuel RN) ONCE PRN, Starting 01/16/14 at 0856, Until Tu01/16/14 at 1036, Pain, Intra- Operative (Intra-Procedure), Routine midazolam (PF) (VERSED) 1 mg/mL injection (CANCELED) 0856 (Given - Provider: Blanca Samuel RN)0859 (Given - Provider: Blanca Samuel RN)0902 (Given - Provider: Blanca Samuel RN)0911 (Given - Provider: Blanca Samuel RN)0914 (Given - Provider: Blanca Samuel RN) ONCE PRN, Starting Wed01/16/14 at 0856, Until 01/16/14 at 1036, Sleep, Intra- Operative (Intra-Procedure), Routine documented in this encounter Care Teams Prekindergarten Teacher Relationship Specialty Start Date End Date Angela Sotelo APRN PCP - General 01/25/13 04/15/[address] [place] [address] documented as of this encounter
--- OUTSIDE RECORDS SUMMARY | 2022-02-06 13:40 | XMS_ITS | Encounter Summary ---
:1945 Author Organization [facility] [place] [address] Care Team Providers Name Role Phone Angela Holliday APRN Primary Care Provider Reason for Visit Reason Comments Other Encounter Details Date Type Department Care Team Description 08/01/2013 Telephone Dermatology at [facility] Rigoberto Garcia III, [address] [place] [address] [facility] [phone] TEJA MARIE-DERMAT [place], [place] [address] (Wo rk) Social History Tobacco Use Types Packs/Day Years Used Date Former Smoker Alcohol Use Standard Drinks/Week Comments No 0 (1 standard drink = 0.6 oz pure alcoho l) Sex Assigned at Date Recorded Not on file documented as of this encounter Miscellaneous Notes Telephone Encounter - Rigoberto Garcia III, MD - 08/01/2013 8:41 PM EST I called the patient and discussed the results of their pathology with them. Component Value Surgical Pathology Final Report [facility] Provider: RIGOBERTO GARCIA III Pt. Name: DON HOANG Acc #: [id number] Pt. Col Date: 07/31/2013 /Sex: 1945,(68 years),Male Rec Date: 07/31/2013 LOC: [facility] SURGICAL PATHOLOGY ---Pathologic Diagnosis--- Skin, right abdomen, shave biopsy: Lentiginous compound nevus with moderate atypia of the intraepidermal component, extending to the peripheral specimen edge, ulcerated, associated with spongiosis and superficial perivascular lymphoeosinophilic infiltrate (see Comment). CR-0 08/01/13 BJM 08/01/13 Verified by: Ian STRANGE, PhD, [place] [facility] Dermatopathologist (Electronic Signature) The attending pathologist whose signature appears on this report has reviewed all diagnostic slides and has edited the gross and/or microscopic portion of the report in rendering the final pathologic diagnosis. 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 Clinicopathologic correlation is recommended. I discussed this benign condition with the patient. He reports it is healing well.and not symptomatic. I recommended he allow the site to heal and call if the irritation recurs or problems arise.. We will see him in 6 months or before if problems occur. He is not aware of any possible contactant - and is no longer itching. documented in this encounter Plan of Treatment Upcoming Encounters Date Type Specialty Care Team Description 02/19/2022 Laboratory Appointment Lab 02/19/2022 Office Visit Cardiology Liz Poole PA [facility] Medical [facility] er Cardiology [place], [place] [address] (Wo rk) 03/12/2022 Office Visit Cardiology Vitaliy Nobles MD [facility] MEDICAL [facility] ER CARDIOLOGY [place], [place] [address] (Wo rk) documented as of this encounter Visit Diagnoses Not on filedocumented in this encounter Care Teams Digester Relationship Specialty Start Date End Date Angela Holliday APRN PCP - General 01/25/13 04/15/15 [address] [place] [address] documented as of this encounter
--- OUTSIDE RECORDS SUMMARY | 2022-02-06 13:40 | XMS_ITS | Encounter Summary ---
:1945 Author Organization [facility] [place] [address] Care Team Providers Name Role Phone Lovely Vicente MD Primary Care Provider Reason for Visit Reason Onset Date Comments Referral 10/30/2015 Urgent referral for mac on [address] Encounter Details Date Type Department Care Team Description 10/30/2015 Telephone Ophthalmology at [facility] C Jayson Ruiz Referral (Urgent [facility] MD Grabiel referral for mac on [facility] [address] [place]) [place] [address] OPHTHALMOLOGY DEPT. [phone] [place], [place] [address] (Wo rk) Social History Tobacco Use Types Packs/Day Years Used Date Former Smoker Smokeless Tobacco: Never Used Alcohol Use Standard Drinks/Week Comments No 0 (1 standard drink = 0.6 oz pure alcoho l) Sex Assigned at Date Recorded Not on file documented as of this encounter Miscellaneous Notes Telephone Encounter - Luz Kennedy COT - 10/31/2015 10:00 AM EDT No call back for Dr. Harrison's office. Telephone Encounter - Luz Kennedy COT - 10/30/2015 10:18 AM EDT Patient seen by Dr. Harrison for routine CEE and found mac on , patient asymptomatic. Paged Dr. Ruiz. Due to full surgical schedule unable to see until next week. If Dr. Harrison feelscan wait, patient can come Wed or Th AM - NPO for possible surgery. Dr. Harrison's office advised. documented in this encounter Plan of Treatment Upcoming Encounters Date Type Specialty Care Team Description 02/19/2022 Laboratory Appointment Lab 02/19/2022 Office Visit Cardiology Liz Poole PA [facility] Medical [facility] er Cardiology Dept [place], [place] [address] (Wo rk) 03/12/2022 Office Visit Cardiology Vitaliy Nobles MD [facility] ER CARDIOLOGY [place], [place] [address] (Wo rk) documented as of this encounter Visit Diagnoses Not on filedocumented in this encounter Care Teams Plaster Die Maker Relationship Specialty Start Date End Date Lovely Vicente MD PCP - General 04/16/15 [facility] [address] [place] [address] documented as of this encounter
--- OUTSIDE RECORDS SUMMARY | 2022-02-06 13:40 | XMS_ITS | Encounter Summary ---
:1945 Author Organization [facility] [place] [address] Care Team Providers Name Role Phone Lovely Vicente MD Primary Care Provider Reason for Visit Reason Comments Skin Check Encounter Details Date Type Department Care Team Description 04/16/2015 Follow-Up Dermatology at [facility] x of melanoma of skin; Abdelrahman HOOPER MD Multiple benign nevi [address] [place] [address] [facility] [place], [place] [address] (Wo rk) Social History Tobacco Use Types Packs/Day Years Used Date Former Smoker Alcohol Use Standard Drinks/Week Comments No 0 (1 standard drink = 0.6 oz pure alcoho l) Sex Assigned at Date Recorded Not on file documented as of this encounter Progress Notes Ginny Christiansen LPN - 04/16/2015 7:48 AM EDT DERMATOLOGY ESTABLISHED PATIENT CLINIC NOTE Date of service: 04/16/2015 Don Fatima : 1945 Provider: Rigoberto Garcia MD PROBLEM: melanoma skin exam SKIN HISTORY: Melanoma - 0.98 mm with a Ede Level IV, high on his mid back in 2005 psoriasis HPI Don Fatima is a 70 y.o. year old male. He is an established patient last seen 08/01/13. He presents for a full melanoma skin exam. He has not noticed any new lesions but his has noticed some new spots on his back. None have bled or changed. His psoriasis is doing well. He applies his synalar solution as needed. He is having trouble with his left hand. He has had carpal tunnel. ADR: No Known Allergies CURRENT MEDICATIONS: Current Outpatient Prescriptions Medication Sig Dispense Refill ??? levothyroxine (SYNTHROID) 150 mcg Tablet Take 1 tablet by mouth daily. 30 tablet 12 ??? insulin glargine (LANTUS SOLOSTAR) Insulin Pen Inject 24 Units subcutaneously nightly. ??? Blood Sugar Diagnostic, Drum (ACCU-CHEK COMPACT TEST) [place] [facility]; Combo Route) route 2 times daily. ??? Magnesium 200 mg Tablet Take 400 mg by mouth daily. ??? amLODIPine (NORVASC) 5 mg Tablet Take 5 mg by mouth daily. ??? fish oil-omega-3 fatty acids 1,000 mg Capsule Take 2 g by mouth daily. ??? multivitamin (THERAGRAN) Tablet Take 1 tablet by mouth daily. ??? UNABLE TO FIND Inject 24 Units subcutaneously nightly. Med Name: Insulin ??? aspirin 81 mg EC tablet Take 81 mg by mouth daily. ??? lisinopril (PRINIVIL;ZESTRIL) 20 mg tablet Take 20 mg by mouth daily. ??? metFORMIN (GLUCOPHAGE) 850 mg tablet Take 850 mg by mouth 2 times daily (with meals). Takes 1 tab in morning, 2 tabs in evening ??? Cholecalciferol, Vitamin D3, (VITAMIN D) 1,000 unit Cap Take 1,000 Units by mouth daily. ??? metoprolol-hydrochlorothiazide (LOPRESSOR HCT) 50-25 mg per tablet Take 1 tablet by mouth 2 times daily. ??? fluocinolone acetonide (SYNALAR) 0.01 % external solution Twice daily to less severe areas of psoriasis 60 mL 2 ??? omeprazole (PRILOSEC) 20 mg capsule Take 20 mg by mouth daily. ??? glyBURIDE (DIABETA) 5 mg tablet 5MG = 1 Tablet(s), PO, Once daily No current facility-administered medications for this visit. PROBLEM LIST: Patient Active Problem List Diagnosis Code ??? Melanoma 172.9 ??? Seborrheic psoriasis- scalp and ingtergluteal area 696.1 ??? Skin lesion of chest wall 709.9 ??? Goiter 240.9 ??? MARIA VICTORIA (obstructive sleep apnea) on CPAP 327.23 ??? Urinary retention 788.20 ??? Atypical nevus of abdominal wall 216.5 ??? BPH (benign prostatic hyperplasia) 600.00 ROS General: feeling well. Oriented X 3. Skin: denies other skin complaints EXAM General: NAD, pleasant, cooperative Skin: The entire skin surface was examined, including the face, neck, chest, abdomen, back. The armsand legs, including the palms, soles, fingers and between the toes. No lymphadenopathy, including the supraclavicular, cervical, axillary, and inguinal areas. Melanoma excision site scar was examined and palpated. There was no increase in pigmentation or induration at this site. Significant skin findings: A. Scalp - small area of mild erythema and scale B. multiple 0.3-0.5cm, medium-brown, evenly-pigmented macules and papules. All with regular pigment pattern on dermoscopy. No pigmented lesions suspicious for melanoma. C. Lower back - 0.8 cm brown macule- even pigmentation and well defined, but a little larger than other nevi ASSESSMENT/PLAN: S/P melanoma - doing well A. Psoriasis well controlled.- continue intermittent therapy with synalar solution - call if refillsare needed. B. Benign appearing nevi, pt reassured C. Benign appearing nevus on the lower back with even pigmentation and well defined margins are noted. This is a little larger than the others and will be monitored for any change. RTC - 6-7 Months - sooner if needed I am documenting this encounter acting as the scribe for and in the presence of Dr. Garcia.: GINNY CHRISTIANSEN LPN I performed the above scribed service and agree with the accuracy of the documentation in this encounter. Rigoberto Garcia MD Section of Dermatology [facility] documented in this encounter Plan of Treatment Upcoming Encounters Date Type Specialty Care Team Description 02/19/2022 Laboratory Appointment Lab 02/19/2022 Office Visit Cardiology Liz Poole PA [facility] er Cardiology Dept [place], [place] [address] (Wo rk) 03/12/2022 Office Visit Cardiology Vitaliy Nobles MD [facility] ER CARDIOLOGY [place], [place] [address] (Wo rk) documented as of this encounter Visit Diagnoses Diagnosis Hx of melanoma of skin Personal history of malignant melanoma o f skin Multiple benign nevi Benign neoplasm of skin, site unspecifie d documented in this encounter Care Teams Dye Lab Technician Relationship Specialty Start Date End Date Lovely Vicente MD PCP - General 04/16/[address] [place] [address] documented as of this encounter
--- OUTSIDE RECORDS SUMMARY | 2022-02-06 13:40 | XMS_ITS | Encounter Summary ---
:1945 Author Organization [facility] [place] [address] Care Team Providers Name Role Phone Som Holliday APRN Primary Care Provider Encounter Details Date Type Department Care Team Description 04/11/2014 Procedure visit Gastroenterology at [facility] Esophageal reflux [facility] Luz Winchester RN (Primary Dx) [place] [address] Social History Tobacco Use Types Packs/Day Years Used Date Former Smoker Alcohol Use Standard Drinks/Week Comments No 0 (1 standard drink = 0.6 oz pure alcoho l) Sex Assigned at Date Recorded Not on file documented as of this encounter Progress Notes Adalid Can MD - 04/13/2014 3:43 PM EDT ESOPHAGEAL MANOMETRY Don Fatima Male, 69 yrs, 1945 PCP: [place] PLANNING ENGINEER: NONE STUDY DATE: 04/11/14 PROVIDER: Adalid Can, PhD, [place] ([id number]) INDICATION Reflux; preoperative evaluation. METHODS Stationary esophageal manometry was performed with the [employer] esophageal motility system utilizing the Polygram software with a 4-channel solid-state motility probe. The transducers are spaced 5 cm apart, and the distal transducer is circumferential, while the proximal three transducers are placed radially above it. Station pull-through technique is utilized to define the lower esophageal sphincter, whose resting tone is determined by the circumferential transducer. Wet swallows are performed in the body of the esophagus with the distal transducer placed 3 and 8 cm above the lower esophageal sphincter zone. The up per esophageal sphincter zone is discerned by station pull-through technique and measured using the circumferential transducer. LES (lower esophageal sphincter) Lower Border: 46.5 cm Upper Border: 43 cm Mid-Inspiratory Resting Pressure: 14.9 mmHg using the distal circumferential transducer (normal=13.5-34.5 mmHg). Water Swallows On 6 of 6 swallows the LES relaxed appropriately. Mean residual LES resting pressure was 1.1 mmHg (normal less than or equal to 8 mmHg). BODY OF ESOPHAGUS Water Swallows: 10 Peristaltic: 10 Not Transmitted: 0 Simultaneous: 0 Rapidly Propagated: 0 Mean Amplitude of Contraction At 3 cm above the mid portion of the LES: 77 mmHg. (normal = 30 mmHg and above) At 8 cm above the mid portion the LES: 80 mmHg. (normal = 30 mmHg and above) UES (upper esophageal sphincter) Identified at 21 cm and extended to 18 cm. UES resting pressure 20 mmHg (normal=30-150 mmHg); relaxation complete. IMPRESSION 1. Normal LES resting pressure. 2. Normal LES relaxation. 3. Reduced UES resting pressure. 4. Normal UES relaxation. 5. Normal motility in the body of the esophagus. Adalid Can, PhD, MD manager cancer, [facility] [employer] Section of Gastroenterology and Hepatology [place] [address] [address] V: [phone] F: [phone] [facility]/gabriela CC/EC: PCP - staff msg copy 04/13/14 Henrique Taylor MD - fax copy 04/13/14 Luz Keller RN - 04/11/2014 8:14 AM EDT Esophageal manometry performed without difficulty and Was well tolerated. documented in this encounter Plan of Treatment Upcoming Encounters Date Type Specialty Care Team Description 02/19/2022 Laboratory Appointment Lab 02/19/2022 Office Visit Cardiology Liz Poole PA [facility] Medical [facility] er Cardiology Dept [place], [place] [address] (Wo rk) 03/12/2022 Office Visit Cardiology Vitaliy Nobles MD [facility] ER CARDIOLOGY [place], [place] [address] (Wo rk) documented as of this encounter Visit Diagnoses Diagnosis Esophageal reflux - Primary documented in this encounter Care Teams Food Safety Scientist Relationship Specialty Start Date End Date Som Holliday APRN PCP - General 01/25/13 04/15/[address] [place] [address] documented as of this encounter
--- OUTSIDE RECORDS SUMMARY | 2022-02-06 13:40 | XMS_ITS | Encounter Summary ---
:1945 Author Organization [facility] [place] [address] Care Team Providers Name Role Phone Lovely Vicente MD Primary Care Provider Reason for Visit Reason Comments Skin Check Encounter Details Date Type Department Care Team Description 06/05/2016 Office Visit Dermatology at [facility] istory of melanoma; Abdelrahman HOOPER MD Seborrheic keratosis; [address] [facility] [place] (actinic keratosis); [place] [address] Multiple nevi; [phone] [facility] [address]-DERMATOLGY [place], [place] [address] Social History Tobacco Use Types Packs/Day Years Used Date Former Smoker Smokeless Tobacco: Never Used Alcohol Use Standard Drinks/Week Comments No 0 (1 standard drink = 0.6 oz pure alcoho l) Sex Assigned at Date Recorded Not on file documented as of this encounter Progress Notes Ginny Christiansen LPN - 06/05/2016 10:15 AM EST DERMATOLOGY ESTABLISHED PATIENT CLINIC NOTE Date of service: 06/05/2016 Don Fatima : 1945 Provider: [facility]oberto Garcia MD PROBLEM: skin cancer screening SKIN HISTORY: Melanoma - 0.98 mm with a Ede Level IV, high on his mid back in 2005 ?? Psoriasis HPI Don Fatima is a 71 y.o. year old male. He is an established patient last seen on 11/05/15. He has some papules on his chest that appeared a couple of months ago. They have not bled or changed. ADR: No Known Allergies CURRENT MEDICATIONS: Current Outpatient Prescriptions Medication Sig Dispense Refill ??? turmeric root extract 500 mg Capsule Take 500 mg by mouth. ??? meTOPROLOL succinate (TOPROL-XL) 25 mg Tablet Sustained Release 24 hr Take 25 mg by mouth daily. ??? levothyroxine (SYNTHROID) 175 mcg Tablet Take 1 tablet by mouth daily. 90 tablet 3 ??? glipiZIDE (GLUCOTROL) 10 mg Tablet Extended Rel 24 hr Take 10 mg by mouth 2 times daily. 1 ??? Blood Sugar Diagnostic, Drum (ACCU-CHEK COMPACT TEST) Strip by [facility]Non- Drug; Combo Route) route 2 times daily. ??? Magnesium 200 mg Tablet Take 1,000 mg by mouth daily. ??? fish oil-omega-3 [...] in morning, 2 tabs in evening ??? fluocinolone acetonide (SYNALAR) 0.01 % external solution Twice daily to less severe areas of psoriasis 60 mL 2 No current facility-administered medications for this visit. PROBLEM LIST: Patient Active Problem List Diagnosis Code ??? Melanoma C43.9 ??? Seborrheic psoriasis- scalp and ingtergluteal area L40.8 ??? Skin lesion of chest wall L98.9 ??? Goiter E04.9 ??? MARIA VICTORIA (obstructive sleep apnea) on CPAP G47.33 ??? Urinary retention R33.9 ??? Atypical nevus of abdominal wall D22.5 ??? BPH (benign prostatic hyperplasia) N40.0 ROS General: feeling well. Oriented X 3. Skin: denies other skin complaints EXAM General: NAD, pleasant, cooperative Skin: Patient was asked to disrobe to the level of their comfort. Examination of skin from the waistup was performed. This includes examination of the skin of the face, ears, neck, chest, axillae, left and right upper extremities, hands, back, and abdomen. Significant skin findings: A. Chest: 0.2-0.3cm scaly irregular pink papule on the mid chest, left of midline x 1 and right superior helix x 1, left superior helix x 1 [Total: 4] B. Back: Scattered 0.3-0.5cm, medium-brown, evenly-pigmented macules and papules. All with regular pigment pattern on dermoscopy. No pigmented lesions suspicious for melanoma. C High on mid back - Well-healed surgical scar with no clinical evidence of recurrence noted ASSESSMENT/PLAN: A. Actinic Keratosis- mid chest, left of midline x 1 and right superior helix x 1, left superior helix x 1 [Total: 4] - I discussed this condition with the patient and explored therapeutic options. I recommended this be treated with LN2, patient is in agreement to this treatment plan. Instructed to call if areas do not resolve as expected or if problems arise. If lesions fail to resolve, further work-up may be needed. Procedure Note: Procedure: Destruction of lesion(s) with cryotherapy. Number: 4 Location: as above Discussed procedure and expectations including risks (including risk of hypopigmentation) and benefits. Verbal consent obtained. Frozen with LN2, 15-30 second thaw time. There were no complications; the patient tolerated the procedure well. Post-procedure expectations and wound care were reviewed. B. Benign appearing nevi with even pigmentation and well defined margins are noted (nonsymptomatic) - Discussed benign nature of lesion and provided reassurance - No treatment necessary at this time - Observe skin for change in color, size or character. Call if such occur C. Scars with h/o Melanoma - high on mid back -No signs of recurrence -Continue to monitor Discussed importance of sun protection, sun avoidance strategies, protective clothing, and sunscreen. I discussed warning signs for skin cancer, including the ABCE's of melanoma. RTC Reminder in place for a Full melanoma skin exam in 9 months I am documenting this encounter acting as the scribe for and in the presence of Dr. Garcia.: GINNY CHRISTIANSEN LPN I performed the above scribed service and agree with the accuracy of the documentation in this encounter. Rigoberto Garcia MD Section of Dermatology [facility] documented in this encounter Plan of Treatment Upcoming Encounters Date Type Specialty Care Team Description 02/19/2022 Laboratory Appointment Lab 02/19/2022 Office Visit Cardiology Liz Poole PA [facility] er Cardiology Dept [place], [place] [address] (Wo rk) 03/12/2022 Office Visit Cardiology Vitaliy Nobles MD [facility] CARDIOLOGY [place], [place] [address] (Wo rk) documented as of this encounter Visit Diagnoses Diagnosis History of melanoma Personal history of malignant melanoma o f skin Seborrheic keratosis Other seborrheic keratosis [place] (actinic keratosis) Actinic keratosis Multiple nevi Benign neoplasm of skin, site unspecifie d Scar Scar condition and fibrosis of skin documented in this encounter Care Teams Assembly Line Inspector Relationship Specialty Start Date End Date Lovely Vicente MD PCP - General 04/16/[address] [place] [address] [address] [place] [address] documented as of this encounter
--- OUTSIDE RECORDS SUMMARY | 2022-02-06 13:40 | XMS_ITS | Encounter Summary ---
:1945 Author Organization [facility] [place] [address] Care Team Providers Name Role Phone Lovely Vicente MD Primary Care Provider Reason for Visit Reason Comments Nevus excision dysplastic nevus mi d upper abdomen Encounter Details Date Type Department Care Team Description 12/03/2016 Procedure visit Dermatology at [facility] Dysplastic nevus of Road MD Adrián trunk [address] [facility] [id number] [facility] [phone] [address] [place] [address] Social History Tobacco Use Types Packs/Day Years Used Date Former Smoker Smokeless Tobacco: Never Used Alcohol Use Standard Drinks/Week Comments No 0 (1 standard drink = 0.6 oz pure alcoho l) Sex Assigned at Date Recorded Not on file documented as of this encounter Last Filed Vital Signs Vital Sign Reading Time Taken Comments Blood Pressure 185/87 12/03/2016 3:00 PM EDT Pulse 81 12/03/2016 3:00 PM EDT Temperature - - Respiratory Rate - - Oxygen Saturation - - Inhaled Oxygen Concentration - - Weight - - Height - - Body Mass Index - - documented in this encounter Patient Instructions Patient InstructionsMira James LPN - 12/03/2016 3:00 PM EDT Section of Dermatology POST OPERATIVE INSTRUCTIONS Wash your hand before changing the dressing. The dressing on the site should remain in place and dry until Wednesday The dressing should then be removed gently After removing the dressing, daily wound care should be performed as follows: Clean the wound with warm water and pat dry Apply either Vaseline or Aquaphor Ointment Cover the wound with a new dressing such as Telfa and Tape, or a Band-Aid Do not use peroxide or Antibiotic cream or ointment on the wound For discomfort, you may take Tylenol or other non-aspirin pain medication. You may use an ice pack for discomfort, 15 minutes on and off for the next 48 hours If bleeding should occur, pressure should be applied constantly for 15 minutes on the dressing with the help of a towel, wash cloth, or piece of gauze. The sutures should be removed in 10 -12 days. It is important that you avoid strenuous and/or vigorous activities, heavy lifting (More than 5-10 lbs), and bending for a period of 2 weeks If you have questions, please contact the office of Halima Cordero MD during the day at [phone] Nurse: Mira [phone] Amy After 5 PM and on weekends, please call the hospital number , and ask for the Sheet Catcher agricultural consultant. documented in this encounter Progress Notes Halima Cordero MD - 12/10/2016 5:41 PM EDT Gwendolyn, Excision shows scar, there is no residual of the severely dysplastic nevus. Please notify patient and check on wound healing. Thank you, DTB Halima Cordero MD - 12/03/2016 3:00 PM EDT Images from the original note were not included. Dermatology Procedure note: Attending: Halima Cordero MD Etl Application Developer: Mira James LPN Referring MD: Rigoberto Garcia MD ? Y/N? Are you taking any blood thinners?? ? Y, Aspirin 81 mg Pacemaker or defibrillator?? ? N Heart valves? ? N Joints? N Antibiotics prior to procedures?? ? N If yes: Time taken?? ? Allergy to local anesthetics? ? N ? Allergy to latex?? ? N ? 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 Electronically signed by: ??Herminia Santacruz MD Verified: ??11/27/2016 ?Dermatopathologist DISCUSSION C - mid upper abdomen - There are two different patterns within the lesion, with an ??ordinary nested component and a cytologically atypical component. Cytologic atypia ??is seen in both the junctional melanocytes and focally in the dermal component. ??The ??area of greatest atypia involves the peripheral ?biopsy edge. I explained the diagnosis to the patient and recommend an excision of the lesion for diagnosis and/or treatment. I explained all treatment options and risks of the procedure to the patient and obtainedwritten consent. Potential complications include, but not limited to: scar, bleeding, infection, incomplete removal, nerve damage, damage to surrounding structures, dehiscence and need for further procedures. ? A time out was performed. The patient was prepared and draped sterilely in the usual manner and anesthesia was administered by local infiltration. An fusiform excision was drawn around the lesion, and the margins were incised to the level of the subcutaneous fat. The tissue was removed with sharp and blunt dissection. The lateral margins of the resulting defect were undermined with sharp and blunt dissection and hemostasis was achieved with electrocautery. The deeper layers of the defect including subcutaneous fat were approximated to reduce tension. A layered wound closure was performed. The woundwas cleaned, dried, vaseline was applied and the wound covered with a pressure dressing. The patientwas given detailed verbal and written instructions on post-operative care. ? In the event of a suspected infection (e.g. pus formation, fever, redness), the patient knows to call the clinic or the on-call carton inspector over the weekend. ??? Name of Procedure? ? Excision with intermediate layered closure Location? ?? mid upper abdomen Diagnosis? ?? dysplastic nevus Size (maximal) (cm)? ?? 0.6 x 0.4 cm Margins (cm)? 0.4 cm ? Size + Margins (cm)? ? 1.4 cm 1% lidocaine with epinephrine? 8.5 cc? Suture (adipose/dermis)? 4-0 Monocryl? Suture (epidermis)? 4-0 Prolene? Final wound length? 3.7 cm? Suture removal? 10-12 days? Mid upper abdomen documented in this encounter Plan of Treatment Upcoming Encounters Date Type Specialty Care Team Description 02/19/2022 Laboratory Appointment Lab 02/19/2022 Office Visit Cardiology Liz Poole PA [facility] [place], [place] [address] (Wo rk) 03/12/2022 Office Visit Cardiology Vitaliy Nobles MD [facility] ER CARDIOLOGY [place], [place] [address] (Wo rk) documented as of this encounter Procedures Procedure Name Priority Date/Time Associated Diagnosis Comme nts SPECIMEN TO Routine 12/03/2016 3:31 PM Dysplastic nevus of Re sults for this PATHOLOGY (NON-OR) EDT trunk procedure are in the results section. SURGICAL PATHOLOGY Routine 12/03/2016 3:31 PM Res ults for this REPORT EDT procedure are i n the results section. documented in this encounter Results Surgical Pathology Report (12/03/2016 3:31 PM EDT) Component Value Ref Test Analysis Performed At [facility] Range Method Time Signature Surgical [id number] ?Location: [facility] Pathology WRIGHT Report The signing pathologist has (i) examined the relevant preparation(s) for the [facility] specimen(s) and (ii) rendered or confirmed the diagnosis(es) . HOSPITAL [facility] . ?Surgic al Pathology DIAGNOSIS Skin, mid upper adomen, excision: - NO RESIDUAL of the previou sly diagnosed lentiginous dysplastic compound nevus with severe atypia - Reparative changes consistent with previous operative site Electronically signed by: ??Alexandru Zambrano MD Verified: ??12/07/2016 ?Dermatopathologist, Bone & Soft Tissue Pathologist CLINICAL INFORMATION Specimen Submitted: A - Skin, Mid upper adomen, Excision, (1) Clinical History: 0.6 x 0.4 healing biopsy site Clinical Diagnosis: Dysplastic nevus, see previous pathology [id number] SPECIMEN PROCESSING A - Labeled/Fixative: Mid-upper abdomen, formalin. Quantity/Size: Single, 2.8 x 1.0 x 0.5 cm. Tissue Description: ??An ell ipse of white skin with a 0.6 x 0.4 cm pink scar ?? . Sections/Processing : The specimen is inked and serially sec tioned. The ends are submitted in (1); the remainder in (2-4). (T4) ??sns Specimen (Source) Anatomical Collection Method Collection Time Re ceived Time Location / / Volume Laterality 12/03/2016 3:31 PM EDT Halima Cordero MD PATHOLOGY/CYTOLOGY ORDERABLE S Performing Organization Address City/[facility]/[place] [address] Specimen to Pathology (NON-OR) (12/03/2016 3:31 PM EDT) Specimen Anatomical Collection Method Collection Time Receive d Time (Source) Location / / Volume Laterality AP Specimen 12/03/2016 3:31 PM 7 6:27 EDT PM EDT Narrative [facility] - 12/03/2016 6:27 PM EDT Specimen requisition ordered. ??Separate Pathology report to follow Resulting Agency Comment Spec In Lab Halima Cordero MD PATHOLOGY/CYTOLOGY ORDERABLE S Performing Organization Address City/[facility]/[place] [address] documented in this encounter Visit Diagnoses Diagnosis Dysplastic nevus of trunk Benign neoplasm of skin of trunk, except scrotum documented in this encounter Care Teams Steward/Stewardess Deck Relationship Specialty Start Date End Date Lovely Vicente MD PCP - General 04/16/[address] [place] [address] documented as of this encounter
--- OUTSIDE RECORDS SUMMARY | 2022-02-06 13:40 | XMS_ITS | Encounter Summary ---
:1945 Author Organization [facility] [place] [address] Care Team Providers Name Role Phone Lovely Vicente MD Primary Care Provider Encounter Details Date Type Department Care Team Description 09/03/2016 Laboratory Appointment Lab [place] [facility] [place] papillary [facility] [place] [id number] Social History Tobacco Use Types Packs/Day Years [...] [facility] er Cardiology Dept [place], [place] [address] (Wo rk) 03/12/2022 Office Visit Cardiology Vitaliy Nobles MD [facility] ER CARDIOLOGY [place], [place] [address] (Wo rk) documented as of this encounter Procedures Procedure Name Priority Date/Time Associated Diagnosis Comme nts THYROGLOBULIN STAT 09/03/2016 11:07 AM Hx of papillary Resu lts for this EST thyroid carcinoma procedure are in the results section . TSH STAT 09/03/2016 11:07 AM Hx of papillary Resul ts for this EST thyroid carcinoma procedure are in the results section . documented in this encounter Results Thyroglobulin (09/03/2016 11:07 AM EST) P athologist Signature Thyroglobulin <0.4 <=54.9 [facility] ng/mL [facility] Comment: Interpret with caution. Tg [...] does not exclude recurrent or metastatic disease. (Hay ID et al. AACE Clinical Practice Guidelines for the Management of Thyroid Carcinoma. Endocrine Practice 1997;3:60-71). Tg levels after rhTSH administration may be lower than those obtained with T4 withdrawal protocol (Fallon BR et al. J Clin Endo Metab 1999;84:2374-3675). Assay performed using the DPC Immulite T g immunometric assay. (lowest detection limit is <0.4 ng/ml). Thyroglob Ab <20.0 0.0 - 40.0 IU/mL [facility] Comment: Assay performed is the DPC Immulite Tg-A b immunometric assay. (Cutoff for TgAb negativity is <20 IU/ml ) Specimen Anatomical Collection Method Collection Time Receive d Time (Source) Location / / Volume Laterality Blood specimen 09/03/2016 11:07 7 1:37 (specimen) AM EST PM EST Resulting Agency Comment Spec In Lab Luz Prescott MD CHEMISTRY ORDERABLES Performing Organization Address City/State/[place] [address] TSH (09/03/2016 11:07 AM EST) P athologist Signature TSH 3.01 0.27 - 4.20 KATALINA RYAN mcIU/mL [facility] Specimen Anatomical Collection Method Collection Time Receive d Time (Source) Location / / Volume Laterality Blood specimen 09/03/2016 11:07 7 (specimen) AM EST 11:22 AM EST Resulting Agency Comment Spec In Lab Luz Prescott MD CHEMISTRY ORDERABLES Performing Organization Address City/State/[place] [address] documented in this encounter Visit Diagnoses Diagnosis Hx of papillary thyroid carcinoma Personal history of malignant neoplasm o f thyroid documented in this encounter Care Teams Rib Chopper Relationship Specialty Start Date End Date Lovely Vicente MD PCP - General 04/16/[address] [place] [address] documented as of this encounter
--- OUTSIDE RECORDS SUMMARY | 2022-02-06 13:40 | XMS_ITS | Encounter Summary ---
:1945 Author Organization [place] [address] Care Team Providers Name Role Phone Lovely Vicente MD Primary Care Provider Reason for Visit Reason Comments Skin Lesion Encounter Details Date Type Department Care Team Description 11/24/2016 [facility] uncertain behavior of skin; Road IIIMD Pigmented skin lesion of uncertain natur e; [address] [facility] [place] of [place] [address] [facility] [place], [place] [address] Social History Tobacco Use Types Packs/Day Years Used Date Former Smoker Smokeless Tobacco: Never Used Alcohol Use Standard Drinks/Week Comments No 0 (1 standard drink = 0.6 oz pure alcoho l) Sex Assigned at Date Recorded Not on file documented as of this encounter Patient Instructions Patient InstructionsCoTaina watkins LPN - 11/24/2016 7:45 AM EDT Treatment and Wound Care Instructions Your treatment today: You have had a shave biopsy of your skin, which is a removal of tissue for examination under a microscope. This wound will heal without stitches. Allow 3-6 weeks for the wound to heal. If bleeding occurs, hold firm pressure against the wound for 15 minutes. If bleeding continues, calls the office or go to your local emergency room. Please allow 1-2 weeks for the biopsy results to return. Your physician or nurse will contact you with the results by phone or letter; follow-up will be discussed at that time. Wound Care Instructions: You will need to keep the dressing placed over the wound dry and intact for 24 hours. Afterwards, perform the following wound care daily: ?? Wash your hands before changing the dressing. ?? Remove the bandage and clean the area with mild soap and water, then gently pat the area dry. ?? Apply a small amount of Vaseline to the area, then cover the wound with a band-aid. Change your dressing daily until the wound is fully healed. ?? A small amount of yellow drainage is part of normal healing. The area might appear as a small depression with redness around the edge of the wound. This is normal. ?? Please contact the office you you notice any of the following signs of infection: increased tenderness, pain, drainage, or redness that becomes hot or hard around the wound. If you have further questions or concerns, please call the office at [phone]. If it is after 5PM, or a holiday or weekend, please call [phone] and ask for the Machine Feeder Floorperson on-call. documented in this encounter Progress Notes Taina Brown LPN - 11/24/2016 7:45 AM EDT Images from the original note were not included. DERMATOLOGY ESTABLISHED PATIENT CLINIC NOTE Date of service: 11/24/2016 Don Fatima : 1945 Provider: Rigoberto Garcia MD PROBLEM: new spots on his back SKIN HISTORY: Melanoma - 0.98 mm with a Ede Level IV, high on his mid back in 2005 ?? Psoriasis HPI Don Fatima is a 71 y.o. year old male.Established patient of [facility]. Last seen 06/05/16. Here today for new spots on his back. His has marked these with band aides. He would like a waist up skin check. His has been watching his back and thinks these areas might be changing and wants them checked. ADR: No Known Allergies CURRENT MEDICATIONS: Current Outpatient Prescriptions Medication Sig Dispense Refill ??? ascorbic acid, vitamin C, (VITAMIN C) 500 mg Tablet Take 500 mg by mouth daily. Winter months only ??? ACCU-CHEK TERA PLUS TEST STRP Strip 1 strip by Other route every morning. 1 ??? LANTUS SOLOSTAR Insulin Pen Inject 22-27 Units subcutaneously nightly. 1 ??? HUMALOG KWIKPEN Insulin Pen Inject 16-20 Units subcutaneously 3 times daily (with meals). 1 ??? BD INSULIN PEN NEEDLE UF MINI 31 gauge x 3/16 Needle 1 each by Other route 4 times daily. 0 ??? levothyroxine (SYNTHROID) 175 mcg Tablet Take 1 tablet by mouth daily. 90 tablet 1 ??? turmeric root extract 500 mg Capsule Take 500 mg by mouth. ??? meTOPROLOL succinate (TOPROL-XL) 25 mg Tablet Sustained Release 24 hr Take 25 mg by mouth daily. ??? Magnesium 200 mg Tablet Take 500 mg by mouth daily. ??? fish oil-omega-3 fatty acids 1,000 mg Capsule Take 2 g by mouth daily. ??? aspirin 81 mg EC tablet Take 81 mg by mouth every other day. ??? lisinopril (PRINIVIL;ZESTRIL) 20 mg tablet Take 20 mg by mouth daily. ??? metFORMIN (GLUCOPHAGE) 850 mg tablet Take 850 mg by mouth 2 times daily (with meals). Takes 1 tab in morning, 2 tabs in evening ??? fluocinolone acetonide (SYNALAR) 0.01 % external solution Twice daily to less severe areas of psoriasis (Patient not taking: Reported on 09/03/2016) 60 mL 2 No current facility-administered medications [...] back, and abdomen. Significant skin findings: A. Right supra scapular-4 mm nevus, pruritic with ? Change It seem to have developed a tail and has been itching. It does not appear ominous under dermoscopy. B. Right mid back- 4 mm pigmented macule with surrounding erythema. This has gotten darker and has subtle erythema but does not appear ominous under dermoscopy C. Mid upper abdomen- 3 mm nevus with variegated pigment. This lesion has a very dark center- he is not sure whether this is new or not. D. Well healed surgical scar from melanoma removal. Procedure Screening Questions: ? No? Yes ?? Defibrillator/Pacemaker?? x ?? Artificial Joints?? x ?? Heart Valves?? x ?? Blood Thinners?? x ?? Prophylactic Antibiotics?? x ?? ASSESSMENT/PLAN: A. Nevus r/o atypia- I discussed this condition with the patient and explored therapeutic options. I recommended a biopsyfor diagnosis Procedure: Skin biopsy by shave technique Location: right supra-scapular Discussed indications for procedure and expectations including risks and benefits. Verbal consent obtained. Skin prep with alcohol. Local anesthesia with 1% xylocaine, 1/100,000 epinephrine. A sample of the lesion was removed by shave technique to the level of the dermis and submitted to Pathology. Hemostasis obtained (AlCl and/or electrocautery). There were no complications; the pt. tolerated the procedure well. The wound was dressed. Post-procedure expectations, wound care and activity restrictions were reviewed. Follow-up based on pathology results. B. Nevus r/o atypia- I discussed this condition with the patient and explored therapeutic options. I recommended a biopsyfor diagnosis Procedure: Skin biopsy by shave technique Location: right mid back Discussed indications for procedure and expectations including risks and benefits. Verbal consent obtained. Skin prep with alcohol. Local anesthesia with 1% xylocaine, 1/100,000 epinephrine. A sample of the lesion was removed by shave technique to the level of the dermis and submitted to Pathology. Hemostasis obtained (AlCl and/or electrocautery). There were no complications; the pt. tolerated the procedure well. The wound was dressed. Post-procedure expectations, wound care and activity restrictions were reviewed. Follow-up based on pathology results. C. Nevus r/o atypia- I discussed this condition with the patient and explored therapeutic options. I recommended a biopsyfor diagnosis Procedure: Skin biopsy by shave technique Location: mid upper abdomen Discussed indications for procedure and expectations including risks and benefits. Verbal consent obtained. Skin prep with alcohol. Local anesthesia with 1% xylocaine, 1/100,000 epinephrine. A sample of the lesion was removed by shave technique to the level of the dermis and submitted to Pathology. Hemostasis obtained (AlCl and/or electrocautery). There were no complications; the pt. tolerated the procedure well. The wound was dressed. Post-procedure expectations, wound care and activity restrictions were reviewed. Follow-up based on pathology results. D. S/P melanoma - mid- back doing well. NER of melanoma. Discussed importance of sun protection, sun avoidance strategies, protective clothing, and sunscreen. I discussed warning signs for skin cancer, including the ABCE's of melanoma. RTC -6 Months for a melanoma skin check. I am documenting this encounter acting as the scribe for and in the presence of Dr. Garcia.: TAINA BROWN LPN I performed the above scribed service and agree with the accuracy of the documentation in this encounter. Rigoberto Garcia MD Section of Dermatology [facility] documented in this encounter Plan of Treatment Upcoming Encounters Date Type Specialty Care Team Description 02/19/2022 Laboratory Appointment Lab 02/19/2022 Office Visit Cardiology Liz Poole PA [facility] Medical [facility] er Cardiology Dept [place], [place] [address] (Mikayla alcaraz) 03/12/2022 Office Visit Cardiology Vitaliy Nobles MD [facility] MEDICAL [facility] CARDIOLOGY [place], [place] [address] (Mikayla alcaraz) documented as of this encounter Procedures Procedure Name Priority Date/Time Associated Diagnosis Comme nts SPECIMEN TO Routine 11/24/2016 8:28 AM Neoplasm of Results f or this PATHOLOGY (NON-OR) EDT uncertain behavior pro cedure are in of skin the results section. SURGICAL PATHOLOGY Routine 11/24/2016 8:28 AM Res ults for this REPORT EDT procedure are i n the results section. documented in this encounter Results Surgical Pathology Report (11/24/2016 8:28 AM EDT) Component Value Ref Test Analysis Performed At [facility] Range Method Time Signature Surgical [id number] ?Location: [facility] Report The signing pathologist has (i) examined the relevant preparation(s) for the [facility] specimen(s) and (ii) rendered or confirmed the diagnosis(es) . HOSPITAL LABORATORY . 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 B - Skin, right mid back, shave biopsy: Lentiginous dysplastic compound nevus wi th moderate atypia, inflamed, close to peripheral biopsy edges, and focally extending to deep biop sy edge. C - Skin, mid upper abdomen, shave biopsy: Lentiginous dysplastic compo und nevus with severe atypia, involving peripheral biopsy edges, ??(see Discussion). Electronically signed by: ??Herminia Santacruz MD. Verified: ??11/27/2016 ?Dermatopathologist DISCUSSION C - mid upper abdomen - Ther e are two different patterns within the lesion, with an ordinary nested component a nd a cytologically atypical component. Cytologic atypia is seen in both the junctio nal melanocytes and focally in the dermal component. ??The area of greatest atypia involves the peripheral ?biopsy edge. CLINICAL INFORMATION Specimen Submitted: A - Skin, right suprascapular, shave biopsy (1) B - Skin, right mid back, shave biopsy (1) C - Skin, mid upper abdomen- 3 mm nevus with variegated pigment, shave biopsy (1) Clinical History: A - 4 mm nevus pruritic with question change B - 4 mm pigmented macule with surrounding erythema C - 3 mm nevus with variegated pigment Clinical Diagnosis: Nevus, rule out atypia x3 SPECIMEN PROCESSING A - Labeled/Fixative: A-right suprascapular, formalin. Quantity/Size: Single, 0.9 x 0.7 x 0.1 cm. Tissue Description: Shave of cordova-brown skin. Sections/Processing: Inked and quadrisected. (T1) B - Labeled/Fixative: B-right mid back, formalin. Quantity/Size: Single, 1.0 x 0.8 x 0.1 cm. Tissue Description: Shave of cordova-white skin with a central 0.7 x 0.6 cm symmetrical, cordova-brown lesion. Sections/Processing: The spe cimen is inked, sectioned and entirely submitted with the tips appearing in cassette (1) and the body in cassette (2) . (T2) C - Labeled/Fixative: C-mid-upper abdomen, formalin. Quantity/Size: Single, 0.6 x 0.5 x 0.1 cm. Tissue Description: Shave of mottled cordova-white to cordova-brown skin. Sections/Processing: Inked and bisected. (T1) ??ejr Specimen (Source) Anatomical Collection Method Collection Time Re ceived Time Location / / Volume Laterality 11/24/2016 8:28 AM EDT Rigoberto Garcia III, MD PATHOLOGY/CYTOLOGY ORDERABLE S Performing Organization Address City/State/[place] [address] Specimen to Pathology (NON-OR) (11/24/2016 8:28 AM EDT) Specimen Anatomical Collection Method Collection Time Receive d Time (Source) Location / / Volume Laterality AP Specimen 11/24/2016 8:28 AM 7 9:29 EDT AM EDT Narrative [facility] - 11/24/2016 9:29 AM EDT Specimen requisition ordered. ??Separate Pathology report to follow Resulting Agency Comment Spec In Lab Rigoberto Garcia III, MD PATHOLOGY/CYTOLOGY ORDERABLE S Performing Organization Address City/State/ZIP Code Phon e Number [place] [phone] documented in this encounter Visit Diagnoses Diagnosis Neoplasm of uncertain behavior of skin Pigmented skin lesion of uncertain natur e History of melanoma Personal history of malignant melanoma o f skin documented in this encounter Care Teams Java Software Developer Relationship Specialty Start Date End Date Lovely Vicente MD PCP - General 04/16/15 [facility] [address] [place] [address] documented as of this encounter
--- OUTSIDE RECORDS SUMMARY | 2022-02-06 13:40 | XMS_ITS | Encounter Summary ---
:1945 Author Organization [facility] [place] [address] Care Team Providers Name Role Phone Lovely Vicente MD Primary Care Provider Reason for Visit Reason Onset Date Comments Pre Procedure Call 12/02/2016 Encounter Details Date Type Department Care Team Description 12/02/2016 Telephone Dermatology at [facility] Mira James LPN Pre Procedure Call [address] [place] [address] Social History Tobacco Use Types Packs/Day Years Used Date Former Smoker Smokeless Tobacco: Never Used Alcohol Use Standard Drinks/Week Comments No 0 (1 standard drink = 0.6 oz pure alcoho l) Sex Assigned at Date Recorded Not on file documented as of this encounter Miscellaneous Notes Telephone Encounter - Mira James LPN - 12/02/2016 11:57 AM EDT Pre-Op excision phone call Date of Call: 12/02/16 Surgical procedure to be done: excision dysplastic nevus mid upper abdomen on 12/03/16 with Halima Cordero MD Surgical Pathology: - Skin, mid upper abdomen, shave biopsy: [...] greatest atypia involves the peripheral ?biopsy edge. Spoke with Kisha Fatima with Don's prior permission by phone to review the following. Review of allergies and medications: instructed to take all medications prior to procedure Does Aspirin 81 mg and fish oil daily. Does not have any allergies to Lidocaine or epinephrine. Does not take antibiotics before dental procedures. Does not have any cardiac issues, murmurs or valve replacements. Does not have a pacemaker or defibrillator. Has not had a total joint replacement with in the past 2 years. Recommend that he be accompanied by someone who can drive him home if needed. Discussed length of procedure and time variables. Post operative instructions reviewed including physical limitations after procedure. Phone number given should any questions or concerns arise before or after the procedure. Kisha states that she understands all of the above. She will have Don call if he has further questions or concerns Mira Jamse LPN documented in this encounter Plan of Treatment Upcoming Encounters Date Type Specialty Care Team Description 02/19/2022 Laboratory Appointment Lab 02/19/2022 Office Visit Cardiology Liz Poole PA [facility] Cardiology [place], [place] [address] (Wo rk) 03/12/2022 Office Visit Cardiology Vitaliy Nboles MD [facility] CARDIOLOGY [place], [place] [address] (Wo rk) documented as of this encounter Visit Diagnoses Not on filedocumented in this encounter Care Teams Radiologic Technology Teacher Relationship Specialty Start Date End Date Lovely Vicente MD PCP - General 04/16/[address] [place] [address] documented as of this encounter
--- OUTSIDE RECORDS SUMMARY | 2022-02-06 13:40 | XMS_ITS | Encounter Summary ---
:1945 Author Organization [facility] [place] [address] Care Team Providers Name Role Phone MiyaAngela STACIE Primary Care Provider Encounter Details Date Type Department Care Team Description 11/27/2013 Orders Only Urology at [facility] Blade Smith, Urinary retention [facility] (Primary Dx) [place] [address] UROLOGY DEPT [place], [place] [address] Social History Tobacco Use Types Packs/Day Years [...] [facility] er Cardiology Dept [place], [place] [address] (Wo rk) 03/12/2022 Office Visit Cardiology Vitaliy Nobles MD [facility] ER CARDIOLOGY [place], [place] [address] (Wo rk) documented as of this encounter Results (ABNORMAL) PSA (11/28/2013 8:02 AM EDT) Analysis Performed At Patho logist Time Signature PSA Total 4.07 (H) 0.00 - CERNER (Ultrasensitiv 4.00 ng/mL MILLENNIUM e) Specimen Anatomical Collection Method Collection Time Receive d Time (Source) Location / / Volume Laterality Blood specimen 11/28/2013 8:02 AM 014 8:05 (specimen) EDT AM EDT Resulting Agency Comment Spec In Lab Blade Smith MD CHEMISTRY ORDERABLES Performing Organization Address City/State/ZIP Code Phon e Number [place] [phone] LAB[address] [facility] MILLENNIUM documented in this encounter Visit Diagnoses Diagnosis Urinary retention - Primary Retention of urine, unspecified documented in this encounter Care Teams Senior Shipping Clerk Relationship Specialty Start Date End Date Angela Holliday APRN PCP - General 01/25/13 04/15/[address] [place] [address] documented as of this encounter
--- OUTSIDE RECORDS SUMMARY | 2022-02-06 13:40 | XMS_ITS | Encounter Summary ---
:1945 Author Organization [facility] Address [address] [place] [address] Care Team Providers Name Role Phone Lovely Vicente MD Primary Care Provider Reason for Visit Reason Comments Skin Check Encounter Details Date Type Department Care Team Description 11/05/2015 Office Visit Dermatology at Rig[facility]to Forman benign nevi; Abdelrahman HOOPER MD Lentigines; [address] [facility] History of melanoma; [place] [address] Skin exam for malignant neoplasm [phone] [facility] [place], [place] [address] Social History Tobacco Use Types Packs/Day Years Used Date Former Smoker Smokeless Tobacco: Never Used Alcohol Use Standard Drinks/Week Comments No 0 (1 standard drink = 0.6 oz pure alcoho l) Sex Assigned at Date Recorded Not on file documented as of this encounter Progress Notes Ginny Christiansen LPN - 11/05/2015 8:08 AM EDT DERMATOLOGY ESTABLISHED PATIENT CLINIC NOTE Date of service: 11/05/2015 Don Fatima : 1945 Provider: Rigoberto Garcia MD PROBLEM: skin cancer screening SKIN HISTORY: Melanoma - 0.98 mm with a Ede Level IV, high on his mid back in 2005 ?? Psoriasis HPI Don Fatima is a 70 y.o. year old male. He presents for a full skin exam. He has not noticed anynew spots of concern. He is 10 years post melanoma and doing well. He has been healthy. His only medical issues is diabetes. ADR: No Known Allergies CURRENT MEDICATIONS: Current Outpatient Prescriptions Medication Sig Dispense Refill ??? levothyroxine (SYNTHROID) 175 mcg Tablet Take 1 tablet by mouth daily. 90 tablet 3 ??? glipiZIDE (GLUCOTROL) 10 mg Tablet Extended Rel 24 hr Take 10 mg by mouth 2 times daily. 1 ??? meTOPROLOL succinate (TOPROL-XL) 25 mg Tablet Sustained Release 24 hr Take 25 mg by mouth nightly. 1 ??? Blood Sugar Diagnostic, Drum (ACCU-CHEK COMPACT TEST) Strip by [facility]Non- Drug; Combo Route) route 2 times daily. ??? Magnesium 200 mg Tablet Take 1,000 mg by mouth daily. ??? amLODIPine (NORVASC) 5 mg Tablet Take 5 mg by mouth daily. ??? fish oil-omega-3 fatty acids 1,000 mg Capsule Take 2 g by mouth daily. ??? multivitamin (THERAGRAN) Tablet Take 1 tablet by mouth daily. ??? aspirin 81 mg [...] BPH (benign prostatic hyperplasia) N40.0 ROS General: Denies fever, chills, nightsweats. No recent weight changes Eyes: Denies pain, vision changes ENT: Denies vertigo, hearing changes, epistaxis, mouth pain or lesions Cardiovascular: Denies chest pain, pressure or palpitations Respiratory: Denies SOB, orthopnea, cough GI: Denies dysphagia, abd pain, GERD Sx, N/V/C/D, black or bloody stool : Denies dysuria, hesitation, normal menstrual cycle Musculoskeletal: Denies arthralgia, myalgia Neuro: Denies numbness or tingling, weakness Hem/Lymph: Denies new lumps or bumps Skin: Denies rash or concerning lesions. Denies new or changing moles. EXAM General: NAD, pleasant, cooperative Skin: The [...] at this site. Significant skin findings: A. Trunk - Multiple, 0.3-0.5cm, medium-brown, evenly-pigmented macules and papules. All with regularpigment pattern on dermoscopy. No pigmented lesions suspicious for melanoma. B. Sun exposed areas - 0.3-0.6cm light-brown evenly pigmented, well-demarcated macules C. High on mid back - Well-healed surgical scar with no clinical evidence of recurrence noted ASSESSMENT/PLAN: A. Benign appearing nevi with even pigmentation and well defined margins are noted - trunk (nonsymptomatic) - Discussed benign nature of lesion and provided reassurance - No treatment necessary at this time - Observe skin for change in color, size or character. Call if such occur No new lesions suspicious for BCC or SCC or melanoma B. Lentigines - sun exposed areas (nonsymptomatic) - Discussed benign nature of lesion and provided reassurance - No treatment necessary at this time - Observe skin for change in color, size or character. Call if such occur C. Scars with h/o Melanoma - high on mid back -No cervical, supraclavicular or axillary lymphadenopathy noted. -No signs of recurrence -Continue to monitor Discussed importance of sun protection, sun avoidance strategies, protective clothing, and sunscreen. RTC in 1 year for a full melanoma skin exam, sooner if needed. Reminder placed in scheduling system.Instructed to call if problems arise. I am documenting this encounter acting as the scribe for and in the presence of Dr. Garcia.: GINNY CHRISTIANSEN LPN and Judit Cruz, Clinical Scribe I performed the above scribed service and agree with the accuracy of the documentation in this encounter. Rigoberto Garcia MD Section of Dermatology [facility] documented in this encounter Plan of Treatment Upcoming Encounters Date Type Specialty Care Team Description 02/19/2022 Laboratory Appointment Lab 02/19/2022 Office Visit Cardiology Liz Poole PA [facility] Medical [facility] Cardiology [place], [place] [address] (Wo rk) 03/12/2022 Office Visit Cardiology Vitaliy Nobles MD [facility] MEDICAL [facility] CARDIOLOGY [place], [place] [address] (Wo rk) documented as of this encounter Visit Diagnoses Diagnosis Multiple benign nevi Benign neoplasm of skin, site unspecifie d Lentigines Other dyschromia History of melanoma Personal history of malignant melanoma o f skin Skin exam for malignant neoplasm Screening for malignant neoplasm of the skin documented in this encounter Care Teams Meter Installer Relationship Specialty Start Date End Date Lovely Vicente MD PCP - General 04/16/[address] [place] [address] [address] [place] [address] documented as of this encounter
--- OUTSIDE RECORDS SUMMARY | 2022-02-06 13:40 | XMS_ITS | Encounter Summary ---
:1945 Author Organization [place] [address] Care Team Providers Name Role Phone Angela Holliday APRN Primary Care Provider Encounter Details Date Type Department Care Team Description 04/30/2014 Orders Only Endocrinology at [facility] Albertina Palmer, Thyroid cancer [facility] Jorge Boyer MD (Primary Dx) [place] [address] [facility] [phone] CENTER ENDOCRINOLOGY DEPT [place], [place] [address] Social History Tobacco Use Types Packs/Day Years Used Date Former Smoker Alcohol Use Standard Drinks/Week Comments No 0 (1 standard drink = 0.6 oz pure alcoho l) Sex Assigned at Date Recorded Not on file documented as of this encounter Progress Notes Rosalind Palmer MD - 04/30/2014 3:24 PM EDT Informed that the thyroid hormone levels are low. Will increase the dose to 150 mcg daily. TSH in 2 months. documented in this encounter Plan of Treatment Upcoming Encounters Date Type Specialty Care Team Description 02/19/2022 Laboratory Appointment Lab 02/19/2022 Office Visit Cardiology Liz Poole PA [facility] Cardiology Dept [place], [place] [address] (Wo rk) 03/12/2022 Office Visit Cardiology Vitaliy Nobles MD [facility] ER CARDIOLOGY [place], [place] [address] (Wo rk) documented as of this encounter Visit Diagnoses Diagnosis Thyroid cancer - Primary Malignant neoplasm of thyroid gland documented in this encounter Care Teams Manager Center Relationship Specialty Start Date End Date Angela Holliday APRN PCP - General 01/25/13 04/15/[address] [place] [address] documented as of this encounter
--- OUTSIDE RECORDS SUMMARY | 2022-02-06 13:40 | XMS_ITS | Encounter Summary ---
:1945 Author Organization [facility] [place] [address] Care Team Providers Name Role Phone Lovely Vicente MD Primary Care Provider Reason for Visit Reason Comments Follow-up Encounter Details Date Type Department Care Team Description 06/03/2017 Office Visit Dermatology at [facility] benign nevi; Abdelrahman HOOPER MD History of melanoma; [address] [facility] History of dysplastic nevus; [place] [address] Skin exam for malignant neoplasm [phone] [facility] [place], [place] [address] Social History Tobacco Use Types Packs/Day Years Used Date Former Smoker Smokeless Tobacco: Never Used Alcohol Use Standard Drinks/Week Comments No 0 (1 standard drink = 0.6 oz pure alcoho l) Sex Assigned at Date Recorded Not on file documented as of this encounter Progress Notes Jordon Whittaker, MARCIE - 06/03/2017 7:45 AM EST DERMATOLOGY ESTABLISHED PATIENT CLINIC NOTE Date of service: 06/03/2017 Don Fatima : 1945 Provider: Rigoberto Garcia MD PROBLEM: melanoma skin exam SKIN HISTORY: Melanoma - 0.98 mm with a Ede Level IV, high on his mid back in 2005 ?? Psoriasis HPI Don Fatima is a 72 y.o. year old male. He is here for a skin exam. His melanoma was years ago and he has not noted any new or worrisome areas. ADR: No Known Allergies CURRENT MEDICATIONS: Current [...] Other route 4 times daily. 0 ??? turmeric root extract 500 mg Capsule [...] at this site. Significant skin findings: A. Well-demarcated, round or oval, cordova or brown macules and papules with benign morphology on the trunk and extremities. B. No evidence of recurrence in scar on the mid upper abdomen. C. No evidence of recurrence in scar on the mid back. No new or worrisome nevi. No lesions suspicious for BCC or SCC at this time. No pigmented lesion suspicious for melanoma at this time. ASSESSMENT/PLAN: A. Multiple Nevi, trunk and extremities Morphology and uniform irregularity in families reassuring for benign nevi. Counseled: Nevi and risks for melanoma arising in a nevus. Recommend regular self-examinations. Answered all questions. Reviewed ABCDEs of melanoma, as below. Return to clinic prn for changes in color, size, shape or thickness or should bleeding or other symptoms occur. Patient agrees to plan. B. 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 History of Melanoma, mid back No evidence of recurrence No cervical, supraclavicular or axillary lymphadenopathy noted. Discussed importance of sun protection, sun avoidance strategies, protective clothing, and sunscreen. RTC in 6-9 months for melanoma skin exam, sooner if needed. Reminder placed in scheduling system. Instructed to call if problems arise. Note initiated by: JORDON WHITTAKER LPN ? Judit Cruz, Clinical Scribe has performed the documentation for this encounter in the presence of and acting as a scribe for Dr. Rigoberto Garcia. I performed the above scribed service and agree with the accuracy of the documentation in this encounter. I performed the above scribed service and agree with the accuracy of the documentation in this encounter. Rigoberto Garcia MD Section of Dermatology [facility] documented in this encounter Plan of Treatment Upcoming Encounters Date Type Specialty Care Team Description 02/19/2022 Laboratory Appointment Lab 02/19/2022 Office Visit Cardiology Liz Poole PA [facility] Cardiology Dept [place], [place] [address] (Wo rk) 03/12/2022 Office Visit Cardiology Vitaliy Nobles MD [facility] ER CARDIOLOGY [place], [place] [address] (Wo rk) documented as of this encounter Visit Diagnoses Diagnosis Multiple benign nevi Benign neoplasm of skin, site unspecifie d History of melanoma Personal history of malignant melanoma o f skin History of dysplastic nevus Personal history of diseases of skin and subcutaneous tissue Skin exam for malignant neoplasm Screening for malignant neoplasm of the skin documented in this encounter Care Teams Ergonomics Technician Relationship Specialty Start Date End Date Lovely Vicente MD PCP - General 04/16/[address] [place] [address] documented as of this encounter
--- OUTSIDE RECORDS SUMMARY | 2022-02-06 13:40 | XMS_ITS | Encounter Summary ---
:1945 Author Organization [facility] [place] [address] Care Team Providers Name Role Phone MiyaAngela STACIE Primary Care Provider Encounter Details Date Type Department Care Team Description 04/26/2014 Office Visit Endocrinology at [facility] Albertina Palmer, Papillary thyroid [facility] [place] [address] CENTER [phone] ENDOCRINOLOGY DEPT [place] [address] Social History Tobacco Use Types Packs/Day Years Used Date Former Smoker Alcohol Use Standard Drinks/Week Comments No 0 (1 standard drink = 0.6 oz pure alcoho l) Sex Assigned at Date Recorded Not on file documented as of this encounter Last Filed Vital Signs Vital Sign Reading Time Taken Comments Blood Pressure 138/81 04/26/2014 8:22 AM EDT Pulse 72 04/26/2014 8:22 AM EDT Temperature - - Respiratory Rate - - Oxygen Saturation - - Inhaled Oxygen Concentration - - Weight 88.5 kg (195 lb) 04/26/2014 8:22 AM EDT Height - - Body Mass Index 29.65 01/16/2014 8:09 AM EDT documented in this encounter Progress Notes Rosalind Palmer MD - 04/26/2014 8:51 AM EDT THYROID ULTRASOUND: Indication: Micro PTC, 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 Date: 04/26/2014 Comparison: Real time images of the thyroid gland were obtained using a BK US machine. All measurements are given as Longitudinal x AP x Transverse Right Lobe: Absent Left Lobe: Absent Isthmus: Absent Lateral/Central neck: no morphologically abnormal lymph nodes. Impression: Surgically absent thyroid. No evidence of disease on US. Rosalind Palmer Endocrine Staff Physician [facility] Rosalind Palmer MD - 04/26/2014 8:39 AM EDT Don Fatima is a very pleasant 67 y.o. year old male with a history of goiter first discovered ~2003. He has been followed since with periodic neck US. Recently he had an US that, compared to one in 2009, demonstrated significant interval change in 2012. He subsequently underwent total thyroidectomy. 03/2013: 0.2 cms PTC unifocal, s/p total thyroidectomy A - Left lobe of thyroid (99 g), resection: Multiple adenomatous nodules (up to 2.7 cm) B - Right lobe of thyroid, resection: Specimen: Right lobectomy Histologic type: Papillary thyroid microcarcinoma. Focality: Unifocal (unifocal/multifocal) Location(s): Right lobe Tumor size: 0.2 cm Tumor capsule: Unencapsulated Vascular/lymphatic invasion: Not identified Tumor Necrosis: Not identified Extrathyroidal invasion: Not identified Margin Uninvolved Regional Lymph nodes: None present TNM STAGING: pT1a pNX (AJCC, 7th ed., 2010) Other findings: Multiple adenomatous nodules (up to 2.7 cm) He now comes for follow up. States that he is not motivated to go. He is currently being tested for acid reflux. Had colonoscopy recently and had polypectomy done. Symptoms of thyroid hormone excess / deficiency Heat intolerance: No Cold intolerance: No Diarrhea: sometimes with metformin Constipation: No Weight loss / gain: lost about 20 pounds over 2 yrs. Anxiety: No Jitteriness: No Tremors: No Palpitations: No Difficulty concentrating: No PMH/PSH/FH/meds/allergies/social : reviewed ROS: as above rest is negative PE: Blood pressure 138/81, pulse 72, weight 88.451 kg (195 lb). General: well nourished, in no distress Head/Eyes: anicteric, PERRL, No conjunctival injection, no proptosis, no lid lag ENT: without Lesions/exudates Neck: Supple, full ROM, no LAD or masses Thyroid:absent CV: RRR, no murmur/gallops/rubs Pulm: Non-labored, CTAB Abd: ND, positive bowel sounds, soft, NT, no masses Peripheral: No edema, palpable DP pulses Neuro: CN intact including visual ballesteros, sensation intact to light touch, reflexes in bl knees normal. Skin: no rashes, not dry. A/P: Mr Fatima is a 69 yr old male with h/o Stage 1 PTC, pT1a pNX , s/p total thyroidectomy 03/2013 comes for follow up. He is clinically euthyroid No evidence of disease on US P: TSH tg F/u in one yr Rosalind Palmer Endocrine Staff Physician [facility] documented in this encounter Plan of Treatment Upcoming Encounters Date Type Specialty Care Team Description 02/19/2022 Laboratory Appointment Lab 02/19/2022 Office Visit Cardiology Liz Poole PA [facility] Cardiology Dept [place], [place] [address] (Wo rk) 03/12/2022 Office Visit Cardiology Vitaliy Nobles MD [facility] CARDIOLOGY [place], [place] [address] (Wo rk) documented as of this encounter Procedures Procedure Name Priority Date/Time Associated Diagnosis Comme nts THYROGLOBULIN Routine 04/26/2014 9:07 AM Papillary thyroid Res ults for this EDT carcinoma procedure are i n the results section . TSH Routine 04/26/2014 9:07 AM Papillary thyroid Resu lts for this EDT carcinoma procedure are i n the results section . documented in this encounter Results Thyroglobulin (04/26/2014 9:07 AM EDT) athologist Signature Thyroglobulin <0.4 <=54.9 CERNER ng/mL [facility] Comment: Interpret with caution. Tg levels may be unreliable and falsely low in TgAb positive samples (TgAb <20 is consistent with TgAb negativity). Serial TgAb measurements may be valuable as a surrog ate tumor marker test and should be considered (Mau LM and [place] Thy roid 2003;13:1-126) A clinical cutoff of [...] does not exclude recurrent or metastatic disease. (Javi ACEVEDO et al. AACE Clinical Practice Guidelines for the Management of Thyroid Carcinoma. Endocrine Practice 1997;3:60-71). Tg levels after rhTSH administration may be lower than those obtained with T4 withdrawal protocol (Fallon BR et al. J Clin Endo Metab 1999;84:4072-4244). Assay performed using the DPC Immulite T g immunometric assay. (lowest detection limit is <0.4 ng/ml). Thyroglob Ab <20.0 0.0 - 40.0 IU/mL CERNER MIL LENNIUM Comment: Assay performed is the DPC Immulite Tg-A b immunometric assay. (Cutoff for TgAb negativity is <20 IU/ml ) Specimen Anatomical Collection Method Collection Time Receive d Time (Source) Location / / Volume Laterality Blood specimen 04/26/2014 9:07 AM 014 2:05 (specimen) EDT PM EDT Resulting Agency Comment Spec In Lab Rosalind Palmer MD CHEMISTRY ORDERABLES Performing Organization Address City/State/[place] [address] CERNER MILLENNIUM (ABNORMAL) TSH (04/26/2014 9:07 AM EDT) athologist Signature TSH 4.46 (H) 0.27 - 4.20 CERNER mcIU/mL MILLENNIUM Specimen Anatomical Collection Method Collection Time Receive d Time (Source) Location / / Volume Laterality Blood specimen 04/26/2014 9:07 AM 014 9:12 (specimen) EDT AM EDT Resulting Agency Comment Spec In Lab Rosalind Palmer MD CHEMISTRY ORDERABLES Performing Organization Address City/State/[place] [address] RAKESH WALKER documented in this encounter Visit Diagnoses Diagnosis Papillary thyroid carcinoma Malignant neoplasm of thyroid gland documented in this encounter Care Teams Designer Relationship Specialty Start Date End Date Angela Holliday APRN PCP - General 01/25/13 04/15/[address] [place] [address] documented as of this encounter
--- OUTSIDE RECORDS SUMMARY | 2022-02-06 13:40 | XMS_ITS | Encounter Summary ---
:1945 Author Organization [facility] [place] [address] Care Team Providers Name Role Phone MiyaLokeshAngela STACIE Primary Care Provider Encounter Details Date Type Department Care Team Description 01/16/2014 Hospital Encounter Gastroenterology at [facility] Nohemi Swann, [facility] Jorge [place] [address] [facility] [phone] [facility] GASTR[facility] DEPT. [place], [place] [address] Social History Tobacco Use Types Packs/Day Years Used Date Former Smoker Alcohol Use Standard Drinks/Week Comments No 0 (1 standard drink = 0.6 oz pure alcoho l) Sex Assigned at Date Recorded Not on file documented as of this encounter Last Filed Vital Signs Vital Sign Reading Time Taken Comments Blood Pressure 103/60 01/16/2014 9:47 AM EDT Pulse 76 01/16/2014 9:47 AM EDT Temperature 36.6 ??C (97.9 ??F) 01/16/2014 8:09 AM EDT Respiratory Rate 16 01/16/2014 9:47 AM EDT Oxygen Saturation 95% 01/16/2014 9:47 AM EDT Inhaled Oxygen Concentration - - [...] you need to be checked. Wednesday-Wednesday Clinic [phone] 8a-5p Same Day Endo [phone] 7a-8p Otherwise contact [phone] and ask to speak to the gear cutting machine set up operator financial management consultant Follow up care is a [place] part [...] Swann MD - 01/16/2014 9:49 AM EDT [facility] Operative Note Patient Name: Gregory Fatima : [id number] MR#: [id number] Case Date: 01/16/2014 Surgeon: Surgeon(s) and Role: * Nohemi Swann MD - Primary Preoperative diagnosis: 5 yr surv. Full procedure note is documented under the Procedure section of eDH. documented in this encounter Plan of Treatment Upcoming Encounters Date Type Specialty Care Team Description 02/19/2022 Laboratory Appointment Lab 02/19/2022 Office Visit Cardiology Liz Poole PA [facility] Cardiology Dept [place], [place] [address] (Wo rk) 03/12/2022 Office Visit Cardiology Vitaliy Nobles MD [facility] ER CARDIOLOGY [place], [place] [address] (Wo rk) documented as of [...] Surgical Pathology Report (01/16/2014 9:53 AM EDT) [facility] Method Time Signature Surgical CERNER Pathology ? [facility] Report ? Provider: ?? NOHEMI SWANN ?Pt. Name: ?? SURINDER ALEGRE, GREGORY Mccollum ? Acc #: ?[id number] ?Pt. MRN: ?[id number] ? Col Date: ?? 4 ? /Sex: [...] Organization Address City/State/ZIP Code Phon e Number [address] [facility] Specimen to Pathology (surgical or derm) (01/16/2014 9:53 AM EDT) Specimen Anatomical Collection Method Collection Time Receive d Time (Source) Location / / Volume Laterality AP Specimen 01/16/2014 9:53 AM 201 4 9:53 EDT AM EDT Narrative CERNER MILLENNIUM - 01/16/2014 9:53 AM E DT Specimen requisition ordered. ??Separate Pathology report to follow Nohemi Swann MD PATHOLOGY/CYTOLOGY ORDERABLE S Performing Organization Address City/State/[facility] Code Phon e Number [address] CERNER MILLENNIUM Specimen to Pathology (surgical or derm) (01/16/2014 9:53 AM EDT) Specimen Anatomical Collection Method Collection Time Receive d Time (Source) Location / / Volume Laterality AP Specimen 01/16/2014 9:53 AM 4 9:53 EDT AM EDT Narrative RAKESH VILLALOBOSENNIUM - 01/16/2014 9:53 AM E DT Specimen requisition ordered. ??Separate Pathology report to follow Nohemi Swann MD PATHOLOGY/CYTOLOGY ORDERABLE S Performing Organization Address City/State/[place] [address] CERKERI MILLENNIUM COLONOSCOPY (01/16/2014 7:25 AM EDT) [facility] Method Time Signature COLONOSCOPY [facility] Endoscopy Patient Name: Gregory Fatima ? Procedure Date: 01/16/2014 7:25 AM ? N: [id number] ? Date of : 1945 ? Age: 68 ? Order #: [id number] ? Procedure: ? Colonoscopy Indications: ? High [...] Laterality 01/16/2014 7:25 AM EDT Angela Sotelo APRN GENERAL SURGICAL ORDERABLES Performing Organization Address City/State/ZIP Code Phon e Number [facility] documented in this encounter Visit Diagnoses Not on filedocumented in this encounter Active and Recently Administered Medications Times are shown in EDT. PRN Medication Order 01/14/2014 01/15/2014 01/16/2014 meperidine (PF) (DEMEROL) 100 mg/mL carpuject (CANCELED) 0856 (Given - Provider: Blanca Samuel RN)0902 (Given - Provider: Blanca Samuel, RN)0911 (Given - Provider: Blanca Samuel, RN) ONCE PRN, Starting 01/16/14 at 0856, Until Tu01/16/14 at 1036, Pain, Intra- Operative (Intra-Procedure), Routine midazolam (PF) (VERSED) 1 mg/mL injection (CANCELED) 0856 (Given - Provider: Blanca Samuel RN)0859 (Given - Provider: Blanca Samuel, RN)0902 (Given - Provider: Blanca Samuel, RN)0911 (Given - Provider: Blanca Samuel, RN)0914 (Given - Provider: Blanca Samuel, VAMSI) ONCE PRN, Starting 01/16/14 at 0856, Until Tu01/16/14 at 1036, Sleep, Intra- Operative (Intra-Procedure), Routine documented in this encounter Care Teams Government Documents Librarian Relationship Specialty Start Date End Date Angela Sotelo APRN PCP - General 01/25/13 04/15/15 [address] [place] [address] documented as of this encounter
--- OUTSIDE RECORDS SUMMARY | 2022-02-06 13:40 | XMS_ITS | Encounter Summary ---
:1945 [place] [address] Care Team Providers Name Role Phone Lovely Vicente MD Primary Care Provider Reason for Visit Auth/Cert Specialty Diagnoses / Procedures Referred By Contact Refer red To Contact Diagnoses STEMI (ST elevation myocardial infarction) NSTEMI STEMI Procedures CARDIAC CATHETERIZATION NAYE IPI Referral ID Status Reason Start Date Expiration Date Visits Requ ested Visits Authorized [id number] 1 1 Encounter Details Date Type Department Care Team Description 07/05/2017 Surgery Automotive Tire Technician Jet Guan, CARDIAC CATHETERIZATION [facility] [place] [address] CARDIOLOGY DEPT. [phone] [place], [place] [address] (Wo rk) Social History Tobacco [...] in this encounter Discharge Summaries Martha Teague S, SHEETMETAL PATTERNMAKER - 07/14/2017 9:38 AM EST Inpatient - Discharge Summary Patient Name: Gregory Hoang Patient Age: 72 y.o. Birthdate: 1945 Language: Tanzanian Race: White Ethnicity: Not nor Admit Date: [...] , @ 1:20p Patient to follow-up with Global Program Director/heart failure team in one week. An appointment will be made for you. You may call [phone] Patient to follow-up with Cardiac Surgery, Dr. Yuan Webber, in ~ 4 weeks with CXR, EKG. Inpatient Provider Contact Information: [facility] Section of Cardiac Surgery [facility] [address] FAX [phone] Discharge Diagnoses (Hospital Problems) Primary Diagnoses: CAD [...] SETUP performed by Manny Mcknight MD at [facility] OR ??? PRO CABG, ARTERIAL, SINGLE N/A 07/07/2017 @CABG, USING ARTERIAL GRAFT;SINGLE ARTERIAL GRAFT (WRVU 33.75) performed by Yuan Webber MD at [facility] ??? PRO CABG, ARTERY-VEIN, TWO N/A 07/07/2017 @CABG, TWO VENOUS GRAFTS & ARTERIAL GRAFT (WRVU 7.93) performed by Yuan Webber MD at [facility] ??? PRO COLONOSCOPY, REMV LESN, SNARE 01/16/2014 COLONOSCOPY, POLYPECTOMY, REMOVAL LESION BY SNARE performed by Nohemi Jaimes MD at [facility] ENDOSCOPY ??? PRO ENDOSCOPY W/VIDEO-ASST VEIN HARVEST, CABG Right 07/07/2017 ENDOSCOPIC HARVEST VEIN(S) FOR CABG (WRVU 0.31) performed by Yuan Webber MD at [facility] ??? PRO THYROIDECTOMY 03/28/2013 THYROIDECTOMY, TOTAL OR COMPLETE performed by Manny Mcknight MD at [facility] Prior To Admission Medications Prescriptions Prior to Admission Medication Sig Dispense Refill Last Dose ??? levothyroxine (SYNTHROID) 175 mcg Tablet Take 1 tablet by mouth daily. 90 tablet 3 07/05/2017 [id number] ??? ascorbic acid, vitamin C, (VITAMIN C) [...] hospital and ruled infor non-ST segment elevation AR. This almost certainly represents the residual of [...] Hospital Course: Gregory Hoang was admitted to [facility] on 07/05/2017 via the Cardiology Service. During his hospital course, he was taken emergently to the geotechnical laboratory technician for an ongoing STEMI. An IABP was [...] without incident. He voided normally after his Oacsio was removed. Anticoagulation plan for discharge is [...] not take or discontinue any prescription or ersv-glw-zaaatsg medications without asking your doctor or pharmacist [...] day to have your insulin doses adjusted. [facility] Endocrine clinic office Discharge Instructions: Call your doctor if: You have a fever of greater than 101 degrees, shaking chills, if you develop redness or drainage from your incision sites, or if you have questions. Please call your surgeon's office if you have any discharge or drainage from your chest incision. Your surgeon, Dr. Yuan Webber and/or the Cardiac Surgery Physician Pharmacy Innovation Assistant Team may be reached at . Weight: [...] Dr. Yuan Webber. You may use a [place] Track or treadmill but avoid any pulling [...] friends, go to a movie, go to jew, etc. Heavy activities: No hunting, skiing, jogging, snow shoveling, snowmobiling, lawn mowing, swimming, golf or tennis until after your return appointment with the surgeon. Do not ride motorcycles, [place] tractors or horses. Avoid the use of [...] should resume a low fat, low cholesterol, [place] Heart Association Diet/Diabetic diet. Driving: No driving [...] , @ 1:20p Patient to follow-up with Global Program Director/heart failure team in one week. Appointment will be made for you. You may call [phone] Patient to follow-up with Cardiac Surgery, Dr. Yuan Webber, in ~ 4 weeks with CXR, EKG. Cardiac Rehabilitation: Gregory Hoang was seen today regarding participation in the outpatient Phase [address] [facility]. The patient agrees to a referral to this program. The referral will be sent at discharge and the patient should be contacted by the Program within 1- 2 weeks from discharge. ?? Future Appointments and Orders Future Appointments Provider Department Dept Phone 09/07/2017 3:00 PM LAB, THREE L Lab 3L [facility] [phone] 09/07/2017 4:00 PM Luz Prescott MD Endocrinology at [place] [phone] Future Orders Complete By Expires EKG 12 Lead [EKG1 Custom] 08/14/2017 02/13/2018 Process Instructions: Scheduling Instructions: Questions: Which DH location will this be performed?: [place] Is a rhythm strip needed?: No If EKG Reason is Pre-op Evaluation, indicate diagnosis for surgery.: XR Chest PA & Lateral (Generic) [[id number] Custom] 08/14/2017 02/13/2018 Process Instructions: Scheduling Instructions: Questions: Where will study be performed?: [facility] Portable exam?: Reason for exam and clinical history: CABG x 3 Other pertinent information: Stat read required?: Date of injury if applicable: Requested Time: Referral to Cardiac Rehab [LXL846 Custom] As directed Process Instructions: If no progress note charted, please enter Clinical details in comments. Scheduling Instructions: Questions: My question or request is: s/p CABG. Cardiac rehab at [facility] Referral to Home Health - at DISCHARGE [KBK9691 CPT(R)] As directed Process Instructions: Scheduling Instructions: Comments: DOCUMENTATION FOR VNA SERVICES (INCLUDING THOSE PATIENTS WITH MEDICARE COVERAGE REQUIRING HOME VNA SERVICES AND/OR HOSPICE SERVICES) PATIENT'S LOCATION: Gregory Hoang [address] [place] [address] [place] [address] (home) Telephone Information: Healthcare Educator's Name: self In discussion with the attending physician, it is certified that this patient is under their care and that they, or a Nurse Practitioner, or Physician Pharmacy Innovation Assistant who is working directly with them, had [...] HEALTH AGENCY: [facility] ([facility] [place] [facility] in [place]) PHONE: [phone] FAX: [phone] RN orders: Cardiopulmonary assessment, incisional assessment, assess vital signs, assessment of rehab progress, medication management and effectiveness, home safety evaluation. Please draw INR if indicated and send result to:Dr Vicente [phone] PT ORDERS: Continue rehab for endurance, gait stability and strength with mobility and transfers. Home safety evaluation. Home exercise program if appropriate. Start of Care Date:24-48 hours after discharge SPECIAL INSTRUCTIONS: For any follow up questions, needs, or issues please call the Cardiac Surgery Office at [phone] FOR MEDICARE ONLY: (please delete this section [...] AFTER 07/17/2017 Signed: Martha Teague APRN [facility] of Cardiac Surgery [facility] [address] FAX [phone] Date: 07/14/2017 CC: MD Ivania Cr Betsy, PA [address] [place] [phone] documented in this encounter Discharge Instructions Discharge [...] day to have your insulin doses adjusted. [facility] Endocrine clinic office Patient InstructionsStMartha mcdonald APRN [...] not take or discontinue any prescription or limf-upu-dwbvewk medications without asking your doctor or pharmacist [...] day to have your insulin doses adjusted. [facility] Endocrine clinic office ? Discharge Instructions: ?? Call your doctor if: You have a fever of greater than 101 degrees, shaking chills, if you develop redness or drainage from your incision sites, or if you have questions. Please call your surgeon's office if you have any discharge or drainage from your chest incision. Your surgeon, Dr. Yuan Webber and/or the Cardiac Surgery Physician Pharmacy Innovation Assistant Team may be reached at . ?? [...] Dr. Yuan Webber. You may use a [place] Track or treadmill but avoid any pulling [...] friends, go to a movie, go to jew, etc. ?? Heavy activities: No hunting, skiing, jogging, snow shoveling, snowmobiling, lawn mowing, swimming, golf or tennis until after your return appointment with the surgeon. Do not ride motorcycles, [place] tractors or horses. Avoid the use of [...] should resume a low fat, low cholesterol, [place] Heart Association Diet/Diabetic diet. ?? Driving: No [...] @ 1:20p ?? Patient to follow-up with Global Program Director/heart failure team in one week. An appointment has been made for you, you can call [phone] ?? Patient to follow-up with Cardiac Surgery, Dr. Yuan Webber, in ~ 4 weeks with CXR, EKG. ? Cardiac Rehabilitation: Gregory Hoang??was seen today regarding participation in the outpatient Phase [address] [facility]. ?? The patient agrees to a referral to this program.? The referral will be sent at discharge and the patient should be contacted by the Program within 1- 2 weeks from discharge. ? Future Appointments and Orders Future Appointments Provider Department Dept Phone ?? 09/07/2017 3:00 PM LAB, THREE L Lab 3L [facility] [phone] ?? 09/07/2017 4:00 PM Luz Prescott MD Endocrinology at [place] [phone] Future Orders Complete By Expires ?? EKG 12 Lead [EKG1 Custom] 08/14/2017 02/13/2018 ?? Process Instructions: ? Scheduling Instructions: ? Questions: ? Which location will this be performed?: [place] ?? Is a rhythm strip needed?: No ?? If EKG Reason is Pre-op Evaluation, indicate diagnosis for surgery.: ?? XR Chest PA & Lateral (Generic) [[id number] Custom] 08/14/2017 02/13/2018 ?? Process Instructions: ? Scheduling Instructions: ? Questions: ? Where will study be performed?: [facility] ?? Portable exam?: ?? Reason for exam and clinical history: CABG x 3 ?? Other pertinent information: ?? Stat read required?: ?? Date of injury if applicable: ?? Requested Time: ?? Referral to Cardiac Rehab [OCW033 Custom] As directed ? Process Instructions: ?? If no progress note charted, please enter Clinical details in comments. ?? Scheduling Instructions: ? Questions: ? My question or request is: s/p CABG. Cardiac rehab at [facility] ? Arrangements for VNA/home care: As above. [...] RN - 07/14/2017 2:34 PM EST The patient/electronics parts sales representative has been provided a list of Home Health Agencies/DME vendors which serve their preferred geographic area. A letter describing our affiliations was reviewed with them and theywere educated about their right to choose where referrals are placed. Patient requests referral to [facility]. PHONE: [phone] FAX: [phone] Expected date of discharge: 07/14 Referral routed to the Paediatrician for matching with agency/vendor and to provide [...] day to have your insulin doses adjusted. [facility] Endocrine clinic office Kathie Carrera APRN [facility] Endocrinology Diabetes Management Pager [phone] 20 minutes of this 35 minute visit was spent with the patient in counseling on diabetes and treatment plan, reviewing all glucose and insulin data as well as relevant laboratory results with the patient, and coordination of care on the inpatient unit including nursing and primary team. 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 A letter describing our affiliations was reviewed with them and theywere educated about their right to choose where referrals are placed. Patient requests referral to : [facility] ([facility] [place] [facility] in [place]) PHONE: [phone] FAX: [phone]. Expected date of discharge: 07/14/17 Referral routed to the Paediatrician for matching with agency/vendor and to provide [...] hours. If BG remains greater than 240, units (no more than three times) &??call [...] #6 s/p CABG X3. FSBG 80 at OR, reports no symptoms but did drink some [...] Will continue to follow Katerin Azul APRN [facility] Endocrinology Diabetes Management Pager [phone] 15 minutes of this 25 minute visit was spent with the patient in counseling on diabetes and treatment plan, reviewing all glucose and insulin data as well as relevant laboratory results with the patient, and coordination of care on the inpatient unit including nursing and primary team. Portillo Jones RN - 07/13/2017 8:32 AM EST Images [...] of infiltration/extravasation Discussed plan of care with CONTINUING EDUCATION DIRECTOR and RN. Elevate exrtemity and apply intermittent Warm compresses. Name of MD contacted Dr. Shaw Brown 07/13/2017 @ 0655 Name of RN contacted Ale Rangel RN Name of Pharmacist if consulted NA Name of Plastics MD ( if consulted) NA (Mandatory photo for infiltrations/ extravasations scoring a stage 2 or greater, but recommended forstage 1)( include measuring tape and identifier in the photo) QUALITY CONTROL LAB TECH CARING FOR THIS PATIENT WILL CONTINUE TO [...] measuring tape and identifier in the photo) QUALITY CONTROL LAB TECH CARING FOR THIS PATIENT WILL CONTINUE TO [...] regard to both infiltrates addressed by this chart writer.All of Mr. Hoang's responses were entirely appropriate. Images of infiltrates attached here. Martha Sharp APRN - 07/13/2017 8:01 AM EST Cardiac Surgery Progress Note: ID: [id number] 72 year old male POD#6 s/p CABGx3 [...] 07/13 0700 In: 1722 [P.O.:1280; I.V.:342] Out: 1895 [Urine:1895] Diet: Carb Control diet 60/60/75 CHO counting [...] on dressing Lines/tubes: PIV LABS: Recent Labs 07/13/1742507/12/17 0411 PT 20.8* 15.4* INR 1.8* 1.2* Recent Labs 07/13/17 04207/12/17 0411 07/11/17 0220 NA 143 145 -- [...] full code Signed: Martha Teague APRN Portillo Jones RN - 07/13/2017 6:50 AM EST Images from the original note were not included. 0655 Warm compress, elevation and hyaluronidase injections for small amiodarone infiltration. Dr. Brown with CT surgery notified. Images of a ffected area attached here. Trenton Young MSW - 07/12/2017 3:47 PM EST Based on discussions with the multi-disciplinary healthcare team, the patient would benefit from inpatient level of care at discharge. ?? I have met with the patient/electronics parts sales representative to discuss discharge planning needs. I have provided the [facility], Office of Care Management letter from the Internal Control Specialist pertaining to rehab referrals. I have also provided a letter describing our affiliations within the [facility] and educated them about their right to choose where referrals are placed. ?? I reviewed the different levels of rehab including SNF, swing, acute and LTAC with the patient/electronics parts sales representative. ?? The patient/electronics parts sales representative has been provided a list of facilities within their preferred geographic area. ?? I have requested that the patient/electronics parts sales representative provide at least three choices for referral. ?? The patient/electronics parts sales representative have requested referrals to: ?? 1. . ?? 2. [place] ?? 3. More to be entered ?? Expected date of discharge: 07/14 Note routed to Paediatrician who will communicate referrals to facilities and [...] hours. If BG remains greater than 240, units (no more than three times) & [...] hours. If BG remains greater than 240, [id number] units (no more than three times) & call for new basal insulin orders. ??If less than 240 after two hours, give no insulin and resume prior schedule. Will continue to follow Katerin Azul APRN [facility] Endocrinology Diabetes Management Pager [phone] 20 minutes of this 35 minute visit was spent with the patient in counseling on diabetes and treatment plan, reviewing all glucose and insulin data as well as relevant laboratory results with the patient, and coordination of care on the inpatient unit including nursing and primary team. Makayla Stevenson APRN - 07/12/2017 9:52 AM EST Cardiac Surgery Progress Note: ID: [id number] 72 year old male POD#5 s/p CABGx3 [...] edema Incisions: CDI sternotomy LABS: Recent Labs 07/12/1741007/10/17427 WBC -- 12.2* HGB -- 9.8* HCT -- 30.0* PLATELET -- 135* PT 15.4* -- INR 1.2* -- Recent Labs 07/12/1741017/17 0220 07/10/17 0428 NA 145 -- 143 [...] 07/11/2017 7:18 PM EST Patient arrived from [facility]. VSS. MSI dressing pulled off with [...] hours. If BG remains greater than 240, units (no more than three times) & [...] them as documented. MARCK DIAMOND MD Makayla Stevenson APRN - 07/11/2017 11:21 AM EST Cardiac Surgery Progress Note: ID: [id number] 72 year old male POD#4 s/p CABGx3 [...] HF meds. Signed: MAKAYLA WILSON APRN Ninfa Shahid DT - 07/11/2017 7:34 AM EST Nutrition [...] means of nutrition support. VIVIAN Butt Nell Simpson RN - 07/11/2017 7:15 AM EST 0655:while getting OOB this a.m. To bedside cardiac chair, AFib resumed ~rate 120-140; no BP issues or sx. Per MD, Lopressor dose given early. Marck Hicks MD [...] hours. If BG remains greater than 240, [id number] units (no more than three times) & [...] AM EST Cardiac Surgery Progress Note: ID: [id number] 72 year old male POD#3 s/p CABGx3 [...] 0700 In: 1143.6 [P.O.:30; I.V.:1113.6] Out: 1894 [Urine:1775] Diet: NPO diet (Hold Meds) Admit [...] harvest site c/d/i LABS: Recent Labs 07/10/1742707/09/17 02307/08/17 0840 07/08/17 0400 07/07/17 2200 07/07/17 1730 [...] -- -- -- 224 -- Recent Labs 07/10/1742707/09/17 0230 07/08/17 0400 07/07/17 2200 NA 143 144 139 -- K 4.6 Not Perf 5.1* 4.7 3.4* CL 107 111* 104 -- CO2 21* 21* 21* -- BUN 16 -- CREATININE 1.19 1.34 1.55* -- GLUCOSE 178 179 -- -- CALCIUM 7.4* 7.1* -- -- ABG (Arterial Blood Gas) No results found for: PHART, PO2ART, KGH6HBU Assessment/Plan: 72 year old male POD#3 s/p [...] Mami Thao - 07/09/2017 6:29 PM EST Custom Clothier Encounter Note Patient Name: Gregory Hoang : [id number] MR#: [id number] Admit Date: 07/05/2017 4:20 PM Hospital Day 4 days Narrative: Patient was sitting in chair, hugging heart pillow, opened his eyes, nodding to come into room Assessment: Patient was sleepy. Intervention and Outcome: Introduced brake lining finisher services and patient reached his hand out in appreciation. Follow-up: Custom Clothier remains available for support. Time in Direct [...] 10:45 AM EST Report given to staff development manager to cover care Maddison Cee PA - 07/09/2017 9:00 AM EST Cardiac Surgery Progress Note: ID: [id number] 72 year old male POD#2 s/p CABGx3 [...] Attending Surgeon on rounds. Signed: STEPHANIE Iqbal [facility] Section of Cardiac Surgery Date: 07/09/2017 [place] [...] 0556. Will continue to monitor pt. Gretchen Carolina PT - 07/08/2017 3:34 PM EST PT Note PT referral received. Pt's chart reviewed. IABP in place. Will follow-up for evaluation as approp when IABP d/c'ed. Gretchen Carolina, PT Pager [phone] Maddison Cee PA - 07/08/2017 11:27 AM EST Cardiac Surgery Progress Note: ID: [id number] 72 year old male POD#1 s/p CABGx3 [...] femoral), TPW, meds CT, L pleural CT, paulino, ROXANA LABS: Recent Labs 07/08/17 0840 07/08/17 0400 [...] 2200 07/07/17 0515 07/06/17 1940 07/06/17 0810 12/11201907/05/17 1655 NA 139 -- 142 -- 141 [...] Attending Surgeon on rounds. Signed: STEPHANIE Iqbal [facility] Section of Cardiac Surgery Date: 07/08/2017 Nick [...] in place in R femoral. No hematoma. EVENT PRODUCER- Intact Psych- Anxious Skin- Dry, no peripheral [...] the unit. DAPHNE SHAHID MD 07/07/2017 Dinorah Main MD - 07/07/2017 6:02 AM EST Inpatient [...] intact. IABP in place in R femoral. EVENT PRODUCER- Intact Psych- Anxious Skin- Dry, no peripheral [...] the unit. NICK SEGAL MD 07/06/2017 Emelia Ibarra RN - 07/06/2017 8:00 AM EST Pt. [...] Grossly intact. Labs Recent Labs 07/06/17 0220 07/05/17 2020 [...] note for details. DAPHNE SHAHID MD Pager [phone] Jet Mckenna MD - 07/05/2017 6:48 PM EST Preliminary Cardiac Catheterization Procedure Note: Procedure(s) performed: Left heart cath, IABP insertion Access: Right MEDICAL OFFICER-->8fr IABP A time-out was conducted prior to [...] effect. Heparin gtt maintained. Pt transferred to geotechnical laboratory technician. documented in this encounter H&P Notes Daphne Shahid MD - 07/05/2017 6:08 PM EST CARDIOLOGY HISTORY & PHYSICAL EXAM Date of Admission: 07/05/2017 ( Hospital Day 0 days ) Responsible Attending: Daphne Shahid MD PCP: Lovely Vicente MD PCP#: [phone] Patient Active Problem List Diagnosis Code ??? [...] load with heparin drip and transferred to [facility]. While there, continued sob, question of chest pain. Stat TTE showing WMA diffusely and EF around 20%. No significant valvular disease. Taken to the geotechnical laboratory technician urgently for ongoing STEMI. [facility] Labs: INR 1.0 WBC 5.88 Hgb 12.9 [...] monitor I/O - s/p lasix in the geotechnical laboratory technician, redose to aim net neg 1L by [...] Medicine, PGY-2 Cardiology S1, Team Pager # [phone] CARDIOLOGY ATTENDING NOTE Patient: Gregory Hoang Date [...] amenable for PCI. DAPHNE SHAHID MD Pager [phone] documented in this encounter Miscellaneous Notes Consult Note - Daphne Shahid MD - 07/14/2017 11:46 AM EST Heart Failure Service Inpatient Consult Note Gregory Hoang Date of : 1945 Age: 72 y.o. Today's date: 07/14/17 PCP: Lovely Vicente MD TRANSMISSION BUILDER: None Place of Service: [facility] Reason for Consult: Dr. Webber has requested [...] SETUP performed by Manny Mcknight MD at [facility] OR ??? PRO CABG, ARTERIAL, SINGLE N/A 07/07/2017 @CABG, USING ARTERIAL GRAFT;SINGLE ARTERIAL GRAFT (WRVU 33.75) performed by Yuan Webber MD at [facility] ??? PRO CABG, ARTERY-VEIN, TWO N/A 07/07/2017 @CABG, TWO VENOUS GRAFTS & ARTERIAL GRAFT (WRVU 7.93) performed by Yuan Webber MD at [facility] ??? PRO COLONOSCOPY, REMV LESN, SNARE 01/16/2014 COLONOSCOPY, POLYPECTOMY, REMOVAL LESION BY SNARE performed by Nohemi Jaimes MD at [facility] ENDOSCOPY ??? PRO ENDOSCOPY W/VIDEO-ASST VEIN HARVEST, CABG Right 07/07/2017 ENDOSCOPIC HARVEST VEIN(S) FOR CABG (WRVU 0.31) performed by Yuan Webber MD at [facility] ??? PRO THYROIDECTOMY 03/28/2013 THYROIDECTOMY, TOTAL OR COMPLETE performed by Manny Mcknight MD at [facility] OR Outpt Meds: Current Outpatient Prescriptions Medication [...] following studies: EKG 07/14/17: NSR 75 bpm, CASINO GAMING WORKER anterior infarct, LAD CXR 07/11/17: FINDINGS: Sternotomy wires. The patient has been extubated, left chest tube removed, and [place]-Suzi catheter removed since the 07/07/2017 study. Atelectasis [...] 232 Recent Labs 07/14/17 0446 07/13/17 0426 07/12/17410 INR 2.4* 1.8* 1.2* Recent Labs 07/14/17 0446 07/13/17 0426 07/12/17 0411 07/10/17427 NA -- 143 145 -- 143 K [...] was discussed with Zehra. Jaden Kelley MD Atm Mechanic Pager [phone] CARDIOLOGY ATTENDING NOTE Patient: Gregory Hoang Date [...] heart failure clinic. DAPHNE SHAHID MD Pager [phone] Plan of Care - Alden Chavarria PTA - 07/14/2017 11:35 AM EST Problem: Patient [...] Anticipated Discharge Disposition: home with assist Alden Chavarria PTA Pager: [phone] Inpatient Physical Therapy Problem: Acute Rehab Services [...] sit/sit to supine -- Bed Mobility Goal, Chambers Level supervision required -- Bed Mobility Goal, Additional Goal adheres to psternal precautions for transfer -- Bed Mobility Goal, Outcome Achieved -- goal met Goal: Gait Training Goal Stand Alone Therapy Goal Outcome: Outcome (s) achieved Date Met: 07/14/17 07/12/175 07/14/17 1132 Gait Training Goal Gait Training Goal, Date Established 07/12/17 -- Gait Training Goal, Time to Achieve 2 - 3 days -- Gait Training Goal, Chambers Level supervision required -- Gait Training Goal, [...] days -- Transfer Training Goal, Activity Type ghq-to-yjkrv/cccyc-zp-dsx;yqg-ar-ijrgf/uoogn-qw-rwx;toilet -- Transfer Train Goal, Chambers Level supervision required -- Transfer Training Goal, [...] keeping present for 2 days per family. Wringer And Setter noted of frustrations, house keeping sent to room. Patient offered showered twice, refused. at bedside, frustrated that shower not complete, informed that patient had refused several times. requesting to see MANAGER PERSONAL, paged sent to Martha, will come to bedside (middle of consult). not willing to wait, Martha notified that family had gone home. Encouraged to come for morning rounds a t 8am. Diabetes team at bedside - insulin adjustments made. Call cabello in reach. Continue to monitor. PLAN MOVING FORWARD: Ambulate, dressing changes BID, Please change drsg at 4am per Martha MANAGER PERSONAL request. INDIVIDUALIZED FALL PREVENTION INTERVENTIONS: Patient-specific fall [...] levels on the lower side, 60ml of Young juice given after a FS of 80. [...] Ongoing Goal: Fall Prevention-Safe Patient Handling 07/12/17 0607/12/[id number] Daily Care Interventions Self-Care Promotion independence encouraged;BADL [...] Conf 07/13/17 0502 Interdisciplinary Rounds/Family Conf Participants rehabilitation case coordinator;dietitian/nutrition services;nursing;occupational therapy;patient;pharmacy;physical therapy;physician Plan of [...] [direct monitoring required during toileting and ADLs]: RN CONTINUING EDUCATION DIRECTOR Surveillance [continuous indirect monitoring]: Barrett Monitor CPG GOAL OUTCOME EVALUATION: Goal: Fall Prevention-Safe Patient Handling 07/12/17 0607/12/17 0800 07/12/17 1600 Daily Care Interventions Self-Care [...] Anticipated Discharge Disposition: home with assist Pager: [phone] CLARISSA SEGAL, PT 07/12/2017 Physical Therapy Rehabilitation [...] to sit/sit to supine Bed Mobility Goal, Chambers Level supervision required Bed Mobility Goal, Additional Goal adheres to psternal precautions for transfer Goal: Gait Training Goal Stand Alone Therapy Goal Outcome: Ongoing (Interventions Implemented as Appropriate) 07/12/17 1225 Gait Training Goal Gait Training Goal, Date Established 07/12/17 Gait Training Goal, Time to Achieve 2 - 3 days Gait Training Goal, Chambers Level supervision required Gait Training Goal, Assist [...] 3 days Transfer Training Goal, Activity Type eas-cq-dgjup/ddsgr-ji-mvy;vti-wr-zyhze/wakft-hg-rui;toilet Transfer Train Goal, Chambers Level supervision required Transfer Training Goal, Additional Goal adheres to sternal precautions during transfer Consult Note - Octavia Vaughn RN - 07/12/2017 10:50 AM EST [facility] CARDIAC REHABILITATION Gregory Hoang was seen today regarding participation in the outpatient Phase [address] [facility]. The patient agrees to a referral to this program. The referral will be sent at discharge and the patient should be contacted by the Program within 1- 2 weeks from discharge. Plan of Care - Carmen Berry RN - 07/12/2017 6:27 AM EST Problem: Patient Care Overview Goal: Plan of Care Review Outcome: Ongoing (Interventions Implemented as Appropriate) 07/12/17611 Coping/Psychosocial Plan Of Care Reviewed With patient [...] IV site, amio to other piv and FRUIT CANNER at bedside to help assess, IV removed. [...] staff, he stood and marched in place. [place] weak, wanting to sit back down. Remained [...] Mutuality Outcome: Ongoing (Interventions Implemented as Appropriate) 07/05/178 Mutuality/Individual Preferences What Anxieties, Fears or Concerns [...] Assessment Outcome: Ongoing (Interventions Implemented as Appropriate) 12/16/17 2100 Discharge Needs Assessment Concerns To Be Addressed [...] Health/Prescription Coverage: Primary Insurance: MEDICARE Secondary Insurance: [id number] [place] Prescription Coverage: yes Preferred Pharmacy: [facility] Other: none Primary Care Provider: Lovely Vicente MD [phone] Patient/Caregiver Goals of Treatment:live and get my breath back Potential Needs for Transition of Care: Rehab/SNF: [facility] Home Health: NA DME: TBD Dialysis: na Community Resources: available Transportation: yes Other: none Anticipated Barriers to Discharge/Special Considerations: none Plan: Likely SNF Rehab before home A member of the Care Management team will continue to monitor progress, follow for continuity of care and assist with transition of care planning. ERLIN Weiss Pager: [phone] Consult Note - Katerin Azul RN - [...] management and to provide a review of alf diabetes care. Diabetes History: Gregory Hoang has [...] potential to d/c gtt and start CF. terminal carman diabetes care: Medications - Outpatient treatment regimen recommendations pending based on the hospital course. Monitoring - continue BG tid ac & hs Diet - low fat/low carb diet Exercise - weight-bearing exercise 30 min/day, as tolerated Thank you for allowing us to provide care for your patient W/E coverage, Dr. Jeane Tatum, pager [phone] Katerin Azul APRN Endocrinology Diabetes Management Pager [phone] Plan of Care - Stephanie Godoy, RN - 07/08/2017 6:54 AM EST Problem: [...] (CPG) Outcome: Ongoing (Interventions Implemented as Appropriate) 07/08/17 0519 Skin Integrity Impairment, Risk/Actual Skin Integrity Impairment, [...] Webber MD - 07/07/2017 6:27 PM EST [facility] Operative Note Patient Name: Gregory Hoang : [id number] MR#: [id number] Case Date: 07/07/2017 Surgeon: Surgeon(s) and Role: * Yuan Webber MD - Primary * Michael Drake PA - Physician Pharmacy Innovation Assistant * Linda Flores PA - Physician Pharmacy Innovation Assistant Preoperative diagnosis: 3VD Postoperative diagnosis: CAD, severe [...] Operative Note Patient Name: Gregory Hoang : [id number] MR#: [id number] Case Date: 07/07/2017 Surgeon: Surgeon(s) and Role: * Yuan Webber MD - Primary * Michael Drake PA - Physician Pharmacy Innovation Assistant * Linda Flores PA - Physician Pharmacy Innovation Assistant Preoperative diagnosis: 3VD Postoperative diagnosis: CAD, severe [...] (reference Cardiac: ACS (Acute Coronary Syndrome) (Adult) [facility]). 07/07/17621 Cardiac: ACS (Acute Coronary Syndrome) Problems [...] place, time, and situation Labs Recent Labs 07/07/1751407/06/1721907/05/172019 WBC 7.6 7.6 [...] 8.1* MAGNESIUM 0.94 0.84 0.68* Recent Labs 07/07/1715 07/07/17 0000 07/06/17 1815 07/06/17 1124 INR [...] major CV events such as , stroke, AR, repeat revascularization compared to PCI). In this [...] code status: Full Code Katty Hahn, MS3 [facility] Cardiology S1 (Pager [phone]) Plan of Care - Emelia Ibarra RN [...] hospital and ruled infor non-ST segment elevation AR. This almost certainly represents the residual of [...] SETUP performed by Manny Mcknight MD at [facility] MAIN OR ??? PRO COLONOSCOPY, REMV LESN, SNARE 01/16/2014 COLONOSCOPY, POLYPECTOMY, REMOVAL LESION BY SNARE performed by Nohemi Jaimes MD at [facility] ENDOSCOPY ??? PRO THYROIDECTOMY 03/28/2013 THYROIDECTOMY, TOTAL OR COMPLETE performed by Manny Mcknight MD at [facility] MAIN OR Social History: Social History [...] Left Carotid Stenosis Assessment and Plan: Gregory Hoagn has severe triple-vessel atherosclerotic coronary disease and [...] with other involved physicians Yuan Webber MD [phone] Med Student Progress Note - Katty Hahn [...] 189 204 197 Recent Labs 07/06/17 0810 07/06/17 0220 07/05/17201907/05/17 1655 NA 141 -- 139 142 [...] major CV events such as , stroke, AR, repeat revascularization compared to PCI). 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 #Home Meds - continue levothyroxine 175mcg - CPAP at night ?? # Routine - DVT PPx: heparin drip - Diet: Healthy heart diet, NPO at midnight for CABG tomorrow - Code Status: FULL - Dispo: CVCC Katty Hahn, M3 [facility] Cardiology S1 (Pager [phone]) Plan of Care - Stephanie Godoy RN [...] in urinal without difficulty. Lasix given in geotechnical laboratory technician, 1.4 L out at this time. Pt [...] Ongoing (Interventions Implemented as Appropriate) 07/06/17 0446 Intra-Aortic Balloon Pump Problems Assessed (Intra-Aortic Balloon [...] Outcome: Ongoing (Interventions Implemented as Appropriate) 07/06/17 5616 Cardiac: ACS (Acute Coronary Syndrome) Problems Assessed [...] Liz Poole PA [facility] er Cardiology Dept [place], [place] [address] (Wo rk) 03/12/2022 Office Visit Cardiology Vitaliy Nobles MD [facility] ER CARDIOLOGY [place], [place] [address] (Wo rk) Scheduled Orders Name [...] procedure are i n the results section. DRUM STENCILER SCAN 07/15/2017 12:00 Res ults for this [...] Routine 07/08/2017 4:00 Results f or this ([facility]/CGP) AM EST procedure are i n the [...] are i n the results section. PREPARE COAG FACTORS STAT 07/07/2017 1:25 Resu [...] Routine 07/07/2017 5:15 Results f or this ([facility]) AM EST [...] Routine 07/06/2017 7:40 Results f or this ([facility]) PM EST [...] Timed 07/06/2017 2:10 Results f or this ([facility]) PM EST procedure are i n the [...] section. TYPE AND SCREEN Routine 07/06/2017 12:00 ([facility]P/SHANDA) PM EST APTT STAT 07/06/2017 11:24 Results [...] Routine 07/06/2017 8:10 Results f or this ([facility]) AM EST procedure are i n the [...] Routine 07/06/2017 2:20 Results f or this ([facility]) AM EST [...] Routine 07/05/2017 8:20 Results f or this ([facility]) PM EST procedure are i n the [...] Timed 07/05/2017 4:55 Results f or this ([facility]) PM EST procedure are i n the [...] Teague APRN IMG DX ORDERABLES SCAN DOC: DRUM STENCILER (07/15/2017 12:00 AM EST) Narrative 07/15/2017 12:00 [...] Signature POC Glucose 186 65 - 199 [facility] Comment: Supplemental ranges: <140 mg/dL before meals <180 mg/dL all other times of the day Specimen Anatomical Collection Method Collection Time Receive d Time (Source) Location / / Volume Laterality Blood specimen 07/14/2017 11:56 7 (specimen) AM EST 11:56 AM EST Yuan Webber MD POINT OF CARE TEST ORDERABLE S Performing Organization Address City/State/ZIP Code Phon e Number [address] POCT Glucose (07/14/2017 7:52 AM EST) athologist Signature POC Glucose 126 65 - 199 [facility] mg/dL [facility] Comment: Supplemental ranges: <140 mg/dL before meals <180 mg/dL all other times of the day Specimen Anatomical Collection Method Collection Time Receive d Time (Source) Location / / Volume Laterality Blood specimen 07/14/2017 7:52 AM 017 7:52 (specimen) EST AM EST Yuan Webber MD POINT OF CARE TEST ORDERABLE S Performing Organization Address City/State/[place] [address] (ABNORMAL) Prothrombin Time (07/14/2017 4:46 AM EST) athologist Signature PT 26.4 (H) 11.8 - 14.0 [facility] LABORATORY INR 2.4 (H) 0.9 - 1.1 [place] [...] Resulting Agency Comment Spec In Lab Makayla Wynona STACIE HEMATOLOGY ORDERABLES Performing Organization Address [facility] Code Phon e Number [address] Potassium (07/14/2017 4:46 AM EST) athologist [facility] Potassium 4.3 3.5 - 5.0 [facility] mmol/L [facility] Comment: Please note: ??Patients with [...] EST Resulting Agency Comment Spec In Lab [facility] CHEMISTRY ORDERABLES Performing Organization Address City/[facility] Phon e Number [address] POCT Glucose (07/14/2017 4:34 AM EST) athologist [facility] POC Glucose 115 65 - 199 [facility] mg/dL [facility] Comment: Supplemental ranges: <140 mg/dL before meals <180 mg/dL all other times of the day Specimen Anatomical Collection Method Collection Time Receive d Time (Source) Location / / Volume Laterality Blood specimen 07/14/2017 4:34 AM 017 4:34 (specimen) EST AM EST Yuan Webber MD POINT OF CARE TEST ORDERABLE S Performing Organization Address City/State/[place] [address] POCT Glucose (07/13/2017 11:33 PM EST) athologist Signature POC Glucose 132 65 - [address] [place] mg/dL [facility] Comment: Supplemental ranges: <140 mg/dL before meals <180 mg/dL all other times of the day Specimen Anatomical Collection Method Collection Time Receive d Time (Source) Location / / Volume Laterality Blood specimen 07/13/2017 11:33 7 (specimen) PM EST 11:33 PM EST Yuan Webber MD POINT OF CARE TEST ORDERABLE S Performing Organization Address City/State/[place] [address] POCT Glucose (07/13/2017 9:25 PM EST) athologist Signature POC Glucose 121 65 - 199 [place] mg/dL [facility] Comment: Supplemental ranges: <140 mg/dL before meals <180 mg/dL all other times of the day Specimen Anatomical Collection Method Collection Time Receive d Time (Source) Location / / Volume Laterality Blood specimen 07/13/2017 9:25 PM 017 9:25 (specimen) EST PM EST Yuan Webber MD POINT OF CARE TEST ORDERABLE S Performing Organization Address City/State/[place] [address] POCT Glucose (07/13/2017 4:55 PM EST) athologist Signature POC Glucose 79 65 - 199 [place] mg/dL [facility] Comment: Supplemental ranges: <140 mg/dL before meals <180 mg/dL all other times of the day Specimen Anatomical Collection Method Collection Time Receive d Time (Source) Location / / Volume Laterality Blood specimen 07/13/2017 4:55 PM 017 4:55 (specimen) EST PM EST Yuan Webber MD POINT OF CARE TEST ORDERABLE S Performing Organization Address City/[facility]/[place] [address] POCT Glucose (07/13/2017 11:16 AM EST) athologist Signature POC Glucose 163 65 - 199 [facility] mg/dL [facility] Comment: Supplemental ranges: <140 mg/dL before meals <180 mg/dL all other times of the day Specimen Anatomical Collection Method Collection Time Receive d Time (Source) Location / / Volume Laterality Blood specimen 07/13/2017 11:16 7 (specimen) AM EST 11:16 AM EST Yuan Webber MD POINT OF CARE TEST ORDERABLE S Performing Organization Address City/[facility]/[place] [address] POCT Glucose (07/13/2017 8:07 AM EST) athologist Signature POC Glucose 96 65 - 199 [facility] mg/dL [facility] Comment: Supplemental ranges: <140 mg/dL before meals <180 mg/dL all other times of the day Specimen Anatomical Collection Method Collection Time Receive d Time (Source) Location / / Volume Laterality Blood specimen 07/13/2017 8:07 AM 017 8:07 (specimen) EST AM EST Yuan Webber MD POINT OF CARE TEST ORDERABLE S Performing Organization Address City/State/[place] [address] (ABNORMAL) Prothrombin Time (07/13/2017 4:26 AM EST) P athologist Signature PT 20.8 (H) 11.8 - 14.0 [facility] LABORATORY INR 1.8 (H) 0.9 - 1.1 [place] [...] EST Resulting Agency Comment Spec In Lab Mkaayla Wilson SHEETMETAL PATTERNMAKER HEMATOLOGY ORDERABLES Performing Organization Address City/State/[place] [address] (ABNORMAL) Basic Metabolic Panel (non-fasting) (07/13/2017 4:26 AM EST) P athologist Signature Glucose Lvl 95 65 - 199 [facility] mg/dL [facility] Comment: Diabetes: >=200 mg/dL plus symp toms BUN 25 (H) 10 - 20 mg/dL [facility] Creatinine 1.19 0.80 - 1.50 mg/dL [facility] Sodium 143 135 - 145 mmol/L [facility] Potassium 3.7 3.5 - 5.0 mmol/L [facility] Comment: Please note: ??Patients with WBC >100,00 0 may have falsely elevated Potassium levels. ??For accurate Potassium quantif ication in these patients send serum separator tube (gold top) for subsequent determinations. ??Contact the Clinical Chemistry Laboratory if there are any qu estions. Chloride 104 98 - 107 mmol/L [facility] CO2 26 22 - 31 mmol/L [facility]OR[facility]ORY Anion Gap 13 5 - 15 mmol/L [facility] Calcium 7.7 (L) 8.5 - 10.5 mg/dL [facility] Estimated GFR 60 >=60 [facility] Comment: The reported eGFR should be multiplied b y 1.2 for patients. The MDRD is not an appropriate measure o f renal function for patients with body mass extremes or in patients with acute kidney failure. http://[employer].com/DHnkdep http://EVIAGEN[employer].com/DHMCnkf Specimen Anatomical Collection Method Collection Time Receive d Time (Source) Location / / Volume Laterality Blood specimen 07/13/2017 4:26 AM 017 4:46 (specimen) EST AM EST Resulting Agency Comment Spec In Lab Makayla Wilson APRN CHEMISTRY ORDERABLES Performing Organization Address City/State/ZIP Code Phon e Number [address] POCT Glucose (07/13/2017 3:52 AM EST) athologist Signature POC Glucose 93 65 - 199 [facility] Comment: Supplemental ranges: <140 mg/dL before meals <180 mg/dL all other times of the day Specimen Anatomical Collection Method Collection Time Receive d Time (Source) Location / / Volume Laterality Blood specimen 07/13/2017 3:52 AM 017 3:52 (specimen) EST AM EST Yuan Webber MD POINT OF CARE TEST ORDERABLE S Performing Organization Address City/[facility]/ZIP Code Phon e Number [address] POCT Glucose (07/13/2017 12:21 AM EST) athologist Signature POC Glucose 80 65 - 199 [facility]dL [facility] Comment: Supplemental ranges: <140 mg/dL before meals <180 mg/dL all other times of the day Specimen Anatomical Collection Method Collection Time Receive d Time (Source) Location / / Volume Laterality Blood specimen 07/13/2017 12:21 7 (specimen) AM EST 12:21 AM EST Yuan Webber MD POINT OF CARE TEST ORDERABLE S Performing Organization Address City/[facility]/ZIP Code Phon e Number [address] POCT Glucose (07/12/2017 8:22 PM EST) athologist Signature POC Glucose 119 65 - 199 [place] mg/dL [facility] Comment: Supplemental ranges: <140 mg/dL before meals <180 mg/dL all other times of the day Specimen Anatomical Collection Method Collection Time Receive d Time (Source) Location / / Volume Laterality Blood specimen 07/12/2017 8:22 PM 017 8:22 (specimen) EST PM EST Yuan Webber MD POINT OF CARE TEST ORDERABLE S Performing Organization Address City/State/ZIP Code Phon e Number [address] POCT Glucose (07/12/2017 4:02 PM EST) athologist Signature POC Glucose 114 65 - 199 [facility] mg/dL [facility] Comment: Supplemental ranges: <140 mg/dL before meals <180 mg/dL all other times of the day Specimen Anatomical Collection Method Collection Time Receive d Time (Source) Location / / Volume Laterality Blood specimen 07/12/2017 4:02 PM 017 4:02 (specimen) EST PM EST Yuan Webber MD POINT OF CARE TEST ORDERABLE S Performing Organization Address City/State/ZIP Code Phon e Number [address] POCT Glucose (07/12/2017 11:28 AM EST) athologist Signature POC Glucose 164 65 - 199 [facility] mg/dL [facility] Comment: Supplemental ranges: <140 mg/dL before meals <180 mg/dL all other times of the day Specimen Anatomical Collection Method Collection Time Receive d Time (Source) Location / / Volume Laterality Blood specimen 07/12/2017 11:28 7 (specimen) AM EST 11:28 AM EST Yuan Webber MD POINT OF CARE TEST ORDERABLE S Performing Organization Address City/State/ZIP Code Phon e Number [address] POCT Glucose (07/12/2017 7:34 AM EST) athologist Signature POC Glucose 109 65 - 199 [place] mg/dL [facility] Comment: Supplemental ranges: <140 mg/dL before meals <180 mg/dL all other times of the day Specimen Anatomical Collection Method Collection Time Receive d Time (Source) Location / / Volume Laterality Blood specimen 07/12/2017 7:34 AM 017 7:34 (specimen) EST AM EST Yuan Webber MD POINT OF CARE TEST ORDERABLE S Performing Organization Address City/State/[place] [address] (ABNORMAL) Basic Metabolic Panel (non-fasting) (07/12/2017 4:11 AM EST) P athologist Signature Glucose Lvl 92 65 - 199 [facility] mg/dL [facility] Comment: Diabetes: >=200 mg/dL plus symp toms BUN 31 (H) 10 - 20 mg/dL [facility] Creatinine 1.23 0.80 - 1.50 mg/dL [facility] Sodium 145 135 - 145 mmol/L [facility] Potassium Not Perf 3.5 - 5.0 mmol/L [facility] Comment: Duplicate order Please note: ??Patients with WBC >100,00 0 may have falsely elevated Potassium levels. ??For accurate Potassium quantif ication in these patients send serum separator tube (gold top) for subsequent determinations. ??Contact the Clinical Chemistry Laboratory if there are any qu estions. Chloride 106 98 - 107 mmol/L [facility] CO2 Not Perf 22 - 31 mmol/L [facility] Comment: Add-on request. Sample too old to perform test. Anion Gap Not Calculated 5 - 15 mmol/L [facility] Calcium 8.1 (L) 8.5 - 10.5 mg/dL [facility] Estimated GFR 58 (L) >=60 [facility] Comment: The reported eGFR should be multiplied b y 1.2 for patients. The MDRD is not an appropriate measure o f renal function for patients with body mass extremes or in patients with acute kidney failure. http://[employer].com/DHnkdep http://In[employer]Glo/DHMCnkf Specimen Anatomical Collection Method Collection Time Receive d Time (Source) Location / / Volume Laterality Blood specimen 07/12/2017 4:11 AM 017 8:57 (specimen) EST AM EST Resulting Agency Comment Spec In Lab [facility] CHEMI[facility] ORDERABLES Performing Organization Address [facility] [place] [address] (ABNORMAL) Prothrombin Time (07/12/2017 4:11 AM EST) P athologist Signature PT 15.4 (H) 11.8 - 14.0 [facility] LABORATORY INR 1.2 (H) 0.9 - 1.1 [place] [...] Resulting Agency Comment Spec In Lab Makayla [facility] HEMATOLOGY ORDERABLES Performing Organization Address City/[facility] [place] [address] Potassium (07/12/2017 4:11 AM EST) P athologist Signature Potassium 3.8 3.5 - 5.0 [facility] mmol/L [facility] Comment: Please note: ??Patients with [...] Wilson APRN CHEMISTRY ORDERABLES Performing Organization Address City/[facility]/ZIP Code Phon e Number [address] POCT Glucose (07/12/2017 4:10 AM EST) athologist Signature POC Glucose 90 65 - 199 [place] mg/dL [facility] Comment: Supplemental ranges: <140 mg/dL before meals <180 mg/dL all other times of the day Specimen Anatomical Collection Method Collection Time Receive d Time (Source) Location / / Volume Laterality Blood specimen 07/12/2017 4:10 AM 017 4:10 (specimen) EST AM EST Yuan Webber MD POINT OF CARE TEST ORDERABLE S Performing Organization Address City/[facility]/ZIP Code Phon e Number [address] POCT Glucose (07/11/2017 11:57 PM EST) athologist Signature POC Glucose 98 65 - 199 [place] mg/dL [facility] Comment: Supplemental ranges: <140 mg/dL before meals <180 mg/dL all other times of the day Specimen Anatomical Collection Method Collection Time Receive d Time (Source) Location / / Volume Laterality Blood specimen 07/11/2017 11:57 7 (specimen) PM EST 11:57 PM EST Yuan Webber MD POINT OF CARE TEST ORDERABLE S Performing Organization Address City/[facility]/ZIP Code Phon e Number [address] POCT Glucose (07/11/2017 8:32 PM EST) athologist Signature POC Glucose 146 65 - 199 [facility] SU mg/dL [facility] Comment: Supplemental ranges: <140 mg/dL before meals <180 mg/dL all other times of the day Specimen Anatomical Collection Method Collection Time Receive d Time (Source) Location / / Volume Laterality Blood specimen 07/11/2017 8:32 PM 017 8:32 (specimen) EST PM EST Yuan Webber MD POINT OF CARE TEST ORDERABLE S Performing Organization Address City/State/[place] [address] XR Chest PA & [...] e xtubated, left chest tube removed, and Dedham-Suzi catheter removed since the study. Atelectasis at [...] e xtubated, left chest tube removed, and Dedham-Suzi catheter removed since the study. Atelectasis at both lung bases, greater on the left with a small effusion on that side. Stable mild cardiomegaly. No pulmonary edema. No pne umothorax. IMPRESSION Bibasilar atelectasis, greater on the le ft with a small effusion on that side. Yuan Webber MD IMG DX ORDERABLES (ABNORMAL) POCT Glucose (07/11/2017 4:05 PM EST) P athologist Signature POC Glucose 223 (H) 65 - 199 [place] mg/dL [facility] Comment: Supplemental ranges: <140 mg/dL before meals <180 mg/dL all other times of the day Specimen Anatomical Collection Method Collection Time Receive d Time (Source) Location / / Volume Laterality Blood specimen 07/11/2017 4:05 PM 017 4:05 (specimen) EST PM EST Yuan Webber MD POINT OF CARE TEST ORDERABLE S Performing Organization Address City/State/[place] [address] POCT Glucose (07/11/2017 11:55 AM EST) athologist Signature POC Glucose 176 65 - 199 [place] mg/dL [facility] Comment: Supplemental ranges: <140 mg/dL before meals <180 mg/dL all other times of the day Specimen Anatomical Collection Method Collection Time Receive d Time (Source) Location / / Volume Laterality Blood specimen 07/11/2017 11:55 7 (specimen) AM EST 11:55 AM EST Yuan Webber MD POINT OF CARE TEST ORDERABLE S Performing Organization Address City/State/[place] [address] POCT Glucose (07/11/2017 7:53 AM EST) athologist Signature POC Glucose 189 65 - 199 [place] mg/dL [facility] Comment: Supplemental ranges: <140 mg/dL before meals <180 mg/dL all other times of the day Specimen Anatomical Collection Method Collection Time Receive d Time (Source) Location / / Volume Laterality Blood specimen 07/11/2017 7:53 AM 017 7:53 (specimen) EST AM EST Yuan Webber MD POINT OF CARE TEST ORDERABLE S Performing Organization Address City/State/ZIP Code Phon e Number [address] POCT Glucose (07/11/2017 4:22 AM EST) athologist Signature POC Glucose 151 65 - 199 [place] mg/dL [facility] Comment: Supplemental ranges: <140 mg/dL before meals <180 mg/dL all other times of the day Specimen Anatomical Collection Method Collection Time Receive d Time (Source) Location / / Volume Laterality Blood specimen 07/11/2017 4:22 AM 017 4:22 (specimen) EST AM EST Yuan Webber MD POINT OF CARE TEST ORDERABLE S Performing Organization Address City/[facility]/[place] [address] Potassium (07/11/2017 2:20 AM EST) P athologist Signature Potassium 4.5 3.5 - 5.0 [facility] mmol/L [facility] Comment: Please note: ??Patients with [...] Webber MD CHEMISTRY ORDERABLES Performing Organization Address City/[facility]/ZIP Code Phon e Number [address] POCT Glucose (07/11/2017 12:17 AM EST) P athologist Signature POC Glucose 162 65 - 199 [facility] Comment: Supplemental ranges: <140 mg/dL before meals <180 mg/dL all other times of the day Specimen Anatomical Collection Method Collection Time Receive d Time (Source) Location / / Volume Laterality Blood specimen 07/11/2017 12:17 7 (specimen) AM EST 12:17 AM EST Yuan Webber MD POINT OF CARE TEST ORDERABLE S Performing Organization Address City/[facility]/[place] [address] POCT Glucose (07/10/2017 8:47 PM EST) athologist Signature POC Glucose 191 65 - 199 [place] mg/dL [facility] Comment: Supplemental ranges: <140 mg/dL before meals <180 mg/dL all other times of the day Specimen Anatomical Collection Method Collection Time Receive d Time (Source) Location / / Volume Laterality Blood specimen 07/10/2017 8:47 PM 017 8:47 (specimen) EST PM EST Yuan Webber MD POINT OF CARE TEST ORDERABLE S Performing Organization Address City/State/ZIP Code Phon e Number [address] POCT Glucose (07/10/2017 4:06 PM EST) athologist Signature POC Glucose 131 65 - 199 [place] mg/dL [facility] Comment: Supplemental ranges: <140 mg/dL before meals <180 mg/dL all other times of the day Specimen Anatomical Collection Method Collection Time Receive d Time (Source) Location / / Volume Laterality Blood specimen 07/10/2017 4:06 PM 017 4:06 (specimen) EST PM EST Yuan Webber MD POINT OF CARE TEST ORDERABLE S Performing Organization Address City/State/ZIP Code Phon e Number [address] POCT Glucose (07/10/2017 3:08 PM EST) athologist Signature POC Glucose 151 65 - 199 [place] mg/dL [facility] Comment: Supplemental ranges: <140 mg/dL before meals <180 mg/dL all other times of the day Specimen Anatomical Collection Method Collection Time Receive d Time (Source) Location / / Volume Laterality Blood specimen 07/10/2017 3:08 PM 017 3:08 (specimen) EST PM EST Yuan Webber MD POINT OF CARE TEST ORDERABLE S Performing Organization Address City/State/ZIP Code Phon e Number [address] POCT Glucose (07/10/2017 2:25 PM EST) athologist Signature POC Glucose 146 65 - 199 [place] mg/dL [facility] Comment: Supplemental ranges: <140 mg/dL before meals <180 mg/dL all other times of the day Specimen Anatomical Collection Method Collection Time Receive d Time (Source) Location / / Volume Laterality Blood specimen 07/10/2017 2:25 PM 017 2:25 (specimen) EST PM EST Yuan Webber MD POINT OF CARE TEST ORDERABLE S Performing Organization Address City/State/ZIP Code Phon e Number [address] POCT Glucose (07/10/2017 1:23 PM EST) athologist Signature POC Glucose 166 65 - 199 [place] mg/dL [facility] Comment: Supplemental ranges: <140 mg/dL before meals <180 mg/dL all other times of the day Specimen Anatomical Collection Method Collection Time Receive d Time (Source) Location / / Volume Laterality Blood specimen 07/10/2017 1:23 PM 017 1:23 (specimen) EST PM EST Yuan Webber MD POINT OF CARE TEST ORDERABLE S Performing Organization Address City/State/ZIP Code Phon e Number [address] POCT Glucose (07/10/2017 11:52 AM EST) athologist Signature POC Glucose 157 65 - 199 [place] mg/dL [facility] Comment: Supplemental ranges: <140 mg/dL before meals <180 mg/dL all other times of the day Specimen Anatomical Collection Method Collection Time Receive d Time (Source) Location / / Volume Laterality Blood specimen 07/10/2017 11:52 7 (specimen) AM EST 11:52 AM EST Yuan Webber MD POINT OF CARE TEST ORDERABLE S Performing Organization Address City/State/ZIP Code Phon e Number [address] POCT Glucose (07/10/2017 11:01 AM EST) athologist Signature POC Glucose 158 65 - 199 [place] mg/dL [facility] Comment: Supplemental ranges: <140 mg/dL before meals <180 mg/dL all other times of the day Specimen Anatomical Collection Method Collection Time Receive d Time (Source) Location / / Volume Laterality Blood specimen 07/10/2017 11:01 7 (specimen) AM EST 11:01 AM EST Yuan Webber MD POINT OF CARE TEST ORDERABLE S Performing Organization Address City/State/ZIP Code Phon e Number [address] POCT Glucose (07/10/2017 9:54 AM EST) P athologist Signature POC Glucose 160 65 - 199 [place] mg/dL [facility] Comment: Supplemental ranges: <140 mg/dL before meals <180 mg/dL all other times of the day Specimen Anatomical Collection Method Collection Time Receive d Time (Source) Location / / Volume Laterality Blood specimen 07/10/2017 9:54 AM 017 9:54 (specimen) EST AM EST Yuan Webber MD POINT OF CARE TEST ORDERABLE S Performing Organization Address City/State/ZIP Code Phon e Number [address] POCT Glucose (07/10/2017 8:58 AM EST) P athologist Signature POC Glucose 183 65 - 199 [place] mg/dL [facility] Comment: Supplemental ranges: <140 mg/dL before meals <180 mg/dL all other times of the day Specimen Anatomical Collection Method Collection Time Receive d Time (Source) Location / / Volume Laterality Blood specimen 07/10/2017 8:58 AM 017 8:58 (specimen) EST AM EST Yuan Webber MD POINT OF CARE TEST ORDERABLE S Performing Organization Address City/State/ZIP Code Phon e Number [address] POCT Glucose (07/10/2017 8:01 AM EST) P athologist Signature POC Glucose 173 65 - 199 [place] mg/dL [facility] Comment: Supplemental ranges: <140 mg/dL before meals <180 mg/dL all other times of the day Specimen Anatomical Collection Method Collection Time Receive d Time (Source) Location / / Volume Laterality Blood specimen 07/10/2017 8:01 AM 017 8:01 (specimen) EST AM EST Yuan Webber MD POINT OF CARE TEST ORDERABLE S Performing Organization Address City/[facility]/ZIP Code Phon e Number [address] POCT Glucose (07/10/2017 7:05 AM EST) P athologist Signature POC Glucose 166 65 - 199 [facility] Comment: Supplemental ranges: <140 mg/dL before meals <180 mg/dL all other times of the day Specimen Anatomical Collection Method Collection Time Receive d Time (Source) Location / / Volume Laterality Blood specimen 07/10/2017 7:05 AM 017 7:05 (specimen) EST AM EST Yuan Webber MD POINT OF CARE TEST ORDERABLE S Performing Organization Address City/[facility]/ZIP Code Phon e Number [address] POCT Glucose (07/10/2017 6:00 AM EST) athologist Signature POC Glucose 162 65 - 199 [facility] Comment: Supplemental ranges: <140 mg/dL before meals <180 mg/dL all other times of the day Specimen Anatomical Collection Method Collection Time Receive d Time (Source) Location / / Volume Laterality Blood specimen 07/10/2017 6:00 AM 017 6:00 (specimen) EST AM EST Yuan Webber MD POINT OF CARE TEST ORDERABLE S Performing Organization Address City/State/ZIP Code Phon e Number [address] (ABNORMAL) Differential, Automated (07/10/2017 4:28 AM EST) [facility] gist Method Time Signature Neutrophils % 87.9 % [facility]OR[facility]ORY Neutr Abs (ANC) 10.70 (H) 1.70 - [facility] 6.10 [facility] x10(3)/[facility] L LABORATORY Lymphocytes % 3.9 % [facility]OR[facility]ORY Lymphocytes Abs 0.5 (L) 0.9 - 3.2 [facility] x10(3)/[facility] LABORATORY Monocytes % 7.0 % [facility] LABORATORY Monocyte Abs 0.8 0.3 - 0.9 [facility] x10(3)/[facility] LABORATORY Eosinophils % 0.3 % [facility] LABOR[facility]ORY Eosinophils Abs 0.0 0.0 - 0.4 [facility] x10(3)/[facility] LABORATORY Basophils % 0.2 % [facility] LABORATORY Basophils Abs 0.0 0.0 - 0.1 [facility] x10(3)/[facility] LABORATORY Immature Gran % 0.70 % [facility] Comment: Immature granulocytes(IG's)percentage an [...] Organization Address City/State/[place] [address] (ABNORMAL) Hemogram (07/10/2017 4:28 AM EST) Analysis Performed At Patho logist Time Signature WBC 12.2 (H) 4.0 - 9.5 [facility] x10(3)/[facility] LABORATORY RBC 3.31 (L) 4.58 - [facility] 5.54 [facility] x10(6)/[facility] LABORATORY Hemoglobin 9.8 (L) 13.7 - [place] 16.5 gm/dL [facility] Hematocrit 30.0 (L) 40.5 - [place] 48.5 % [facility] MCV 90.6 82.9 - [facility] 93.1 [facility] LABORATORY MCH 29.6 27.5 - [place] 32.1 pg [facility] MCHC 32.7 32.0 - [place] 35.7 gm/dL [facility] Platelets 135 (L) 145 - 357 [facility] x10(3)/[facility] LABORATORY RDWSD 50.8 (H) 36.0 - [facility] 45.0 [facility] LABORATORY RDWCV 15.4 (H) 11.4 - [facility] 13.8 % [facility] MPV 10.0 7.6 - 12.9 [facility] LAB[facility]ATORY nRBC % Auto 0.0 % [facility] nRBC Abs Auto 0.000 0.000 - [facility] x10(3)/[facility] LABORATORY Specimen Anatomical Collection Method Collection Time Receive d Time (Source) Location / / Volume Laterality Blood specimen 07/10/2017 4:28 AM 017 4:36 (specimen) EST AM EST Resulting Agency Comment Spec In Lab Yuan Webber MD HEMATOLOGY ORDERABLES Performing Organization Address City/State/[place] [address] (ABNORMAL) Basic Metabolic Panel (non-fasting) (07/10/2017 4:28 AM EST) P athologist Signature Glucose Lvl 178 65 - 199 [facility] mg/dL [facility] Comment: Diabetes: >=200 mg/dL plus symp toms BUN 20 10 - 20 mg/dL [facility] Creatinine 1.19 0.80 - 1.50 mg/dL [facility] Sodium 143 135 - 145 mmol/L [facility] Potassium 4.6 3.5 - 5.0 mmol/L [facility] Comment: Please note: ??Patients with WBC >100,00 0 may have falsely elevated Potassium levels. ??For accurate Potassium quantif ication in these patients send serum separator tube (gold top) for subsequent determinations. ??Contact the Clinical Chemistry Laboratory if there are any qu estions. Chloride 107 98 - 107 mmol/L [facility] CO2 21 (L) 22 - 31 mmol/L [facility] Anion Gap 15 5 - 15 mmol/L [facility] Calcium 7.4 (L) 8.5 - 10.5 mg/dL [facility] Estimated GFR 60 >=60 [facility] Comment: The reported eGFR should be multiplied b y 1.2 for patients. The MDRD is not an appropriate measure o f renal function for patients with body mass extremes or in patients with acute kidney failure. http://IntheGlo/DHnkdep http://IntheGlo/DHMCnkf Specimen Anatomical Collection Method Collection Time Receive d Time (Source) Location / / Volume Laterality Blood specimen 07/10/2017 4:28 AM 017 4:36 (specimen) EST AM EST Resulting Agency Comment Spec In Lab Yuan Webber MD CHEMISTRY ORDERABLES Performing Organization Address City/[facility]/ZIP Code Phon e Number [address] POCT Glucose (07/10/2017 4:26 AM EST) athologist Signature POC Glucose 176 65 - 199 [facility] mg/dL [facility] Comment: Supplemental ranges: <140 mg/dL before meals <180 mg/dL all other times of the day Specimen Anatomical Collection Method Collection Time Receive d Time (Source) Location / / Volume Laterality Blood specimen 07/10/2017 4:26 AM 017 4:26 (specimen) EST AM EST Yuan Webber MD POINT OF CARE TEST ORDERABLE S Performing Organization Address City/[facility]/[place] [address] (ABNORMAL) POCT Glucose (07/10/2017 3:06 AM EST) athologist Signature POC Glucose 204 (H) 65 - 199 [facility] SU mg/dL [facility] Comment: Supplemental ranges: <140 mg/dL before meals <180 mg/dL all other times of the day Specimen Anatomical Collection Method Collection Time Receive d Time (Source) Location / / Volume Laterality Blood specimen 07/10/2017 3:06 AM 017 3:06 (specimen) EST AM EST Yuan Webber MD POINT OF CARE TEST ORDERABLE S Performing Organization Address City/State/[place] [address] (ABNORMAL) POCT Glucose (07/10/2017 2:10 AM EST) athologist Signature POC Glucose 203 (H) 65 - 199 [facility] Comment: Supplemental ranges: <140 mg/dL before meals <180 mg/dL all other times of the day Specimen Anatomical Collection Method Collection Time Receive d Time (Source) Location / / Volume Laterality Blood specimen 07/10/2017 2:10 AM 017 2:10 (specimen) EST AM EST Yuan Webber MD POINT OF CARE TEST ORDERABLE S Performing Organization Address City/State/[place] [address] POCT Glucose (07/10/2017 1:09 AM EST) athologist Signature POC Glucose 196 65 - 199 [facility] Comment: Supplemental ranges: <140 mg/dL before meals <180 mg/dL all other times of the day Specimen Anatomical Collection Method Collection Time Receive d Time (Source) Location / / Volume Laterality Blood specimen 07/10/2017 1:09 AM 017 1:09 (specimen) EST AM EST Yuan Webber MD POINT OF CARE TEST ORDERABLE S Performing Organization Address City/State/[place] [address] POCT Glucose (07/10/2017 12:10 AM EST) athologist Signature POC Glucose 173 65 - 199 [place] mg/dL [facility] Comment: Supplemental ranges: <140 mg/dL before meals <180 mg/dL all other times of the day Specimen Anatomical Collection Method Collection Time Receive d Time (Source) Location / / Volume Laterality Blood specimen 07/10/2017 12:10 7 (specimen) AM EST 12:10 AM EST Yuan Webber MD POINT OF CARE TEST ORDERABLE S Performing Organization Address City/State/ZIP Code Phon e Number [address] POCT Glucose (07/09/2017 11:01 PM EST) athologist Signature POC Glucose 140 65 - 199 [place] mg/dL [facility] Comment: Supplemental ranges: <140 mg/dL before meals <180 mg/dL all other times of the day Specimen Anatomical Collection Method Collection Time Receive d Time (Source) Location / / Volume Laterality Blood specimen 07/09/2017 11:01 7 (specimen) PM EST 11:01 PM EST Yuan Webber MD POINT OF CARE TEST ORDERABLE S Performing Organization Address City/State/ZIP Code Phon e Number [address] POCT Glucose (07/09/2017 10:05 PM EST) athologist Signature POC Glucose 144 65 - 199 [place] mg/dL [facility] Comment: Supplemental ranges: <140 mg/dL before meals <180 mg/dL all other times of the day Specimen Anatomical Collection Method Collection Time Receive d Time (Source) Location / / Volume Laterality Blood specimen 07/09/2017 10:05 7 (specimen) PM EST 10:05 PM EST Yuan Webber MD POINT OF CARE TEST ORDERABLE S Performing Organization Address City/State/ZIP Code Phon e Number [address] POCT Glucose (07/09/2017 9:31 PM EST) athologist Signature POC Glucose 121 65 - 199 [place] mg/dL [facility] Comment: Supplemental ranges: <140 mg/dL before meals <180 mg/dL all other times of the day Specimen Anatomical Collection Method Collection Time Receive d Time (Source) Location / / Volume Laterality Blood specimen 07/09/2017 9:31 PM 017 9:31 (specimen) EST PM EST Yuan Webber MD POINT OF CARE TEST ORDERABLE S Performing Organization Address City/State/ZIP Code Phon e Number [address] POCT Glucose (07/09/2017 9:03 PM EST) athologist Signature POC Glucose 98 65 - 199 [place] mg/dL [facility] Comment: Supplemental ranges: <140 mg/dL before meals <180 mg/dL all other times of the day Specimen Anatomical Collection Method Collection Time Receive d Time (Source) Location / / Volume Laterality Blood specimen 07/09/2017 9:03 PM 017 9:03 (specimen) EST PM EST Yuan Webber MD POINT OF CARE TEST ORDERABLE S Performing Organization Address City/State/ZIP Code Phon e Number [address] POCT Glucose (07/09/2017 8:09 PM EST) athologist Signature POC Glucose 117 65 - 199 [facility] mg/dL [facility] Comment: Supplemental ranges: <140 mg/dL before meals <180 mg/dL all other times of the day Specimen Anatomical Collection Method Collection Time Receive d Time (Source) Location / / Volume Laterality Blood specimen 07/09/2017 8:09 PM 017 8:09 (specimen) EST PM EST Yuan Webber MD POINT OF CARE TEST ORDERABLE S Performing Organization Address City/State/ZIP Code Phon e Number [address] POCT Glucose (07/09/2017 5:40 PM EST) athologist Signature POC Glucose 155 65 - 199 [place] mg/dL [facility] Comment: Supplemental ranges: <140 mg/dL before meals <180 mg/dL all other times of the day Specimen Anatomical Collection Method Collection Time Receive d Time (Source) Location / / Volume Laterality Blood specimen 07/09/2017 5:40 PM 017 5:40 (specimen) EST PM EST Yuan Webber MD POINT OF CARE TEST ORDERABLE S Performing Organization Address City/State/ZIP Code Phon e Number [address] POCT Glucose (07/09/2017 4:24 PM EST) athologist Signature POC Glucose 164 65 - 199 [facility] mg/dL [facility] Comment: Supplemental ranges: <140 mg/dL before meals <180 mg/dL all other times of the day Specimen Anatomical Collection Method Collection Time Receive d Time (Source) Location / / Volume Laterality Blood specimen 07/09/2017 4:24 PM 017 4:24 (specimen) EST PM EST Yuan Webber MD POINT OF CARE TEST ORDERABLE S Performing Organization Address City/State/ZIP Code Phon e Number [address] POCT Glucose (07/09/2017 3:19 PM EST) athologist Signature POC Glucose 166 65 - 199 [place] mg/dL [facility] LABORATORY Comment: Supplemental ranges: <140 mg/dL before meals <180 mg/dL all other times of the day Specimen Anatomical Collection Method Collection Time Receive d Time (Source) Location / / Volume Laterality Blood specimen 07/09/2017 3:19 PM 017 3:19 (specimen) EST PM EST Yuan Webber MD POINT OF CARE TEST ORDERABLE S Performing Organization Address City/State/ZIP Code Phon e Number [address] POCT Glucose (07/09/2017 2:26 PM EST) athologist Signature POC Glucose 179 65 - 199 [facility] SU mg/dL [facility]OR[facility] Comment: Supplemental ranges: <140 mg/dL before meals <180 mg/dL all other times of the day Specimen Anatomical Collection Method Collection Time Receive d Time (Source) Location / / Volume Laterality Blood specimen 07/09/2017 2:26 PM 017 2:26 (specimen) EST PM EST Yuan Webber MD POINT OF CARE TEST ORDERABLE S Performing Organization Address City/State/[place] [address] (ABNORMAL) POCT Glucose (07/09/2017 1:29 PM EST) P athologist Signature POC Glucose 210 (H) 65 - 199 [place] mg/dL [facility] Comment: Supplemental ranges: <140 mg/dL before meals <180 mg/dL all other times of the day Specimen Anatomical Collection Method Collection Time Receive d Time (Source) Location / / Volume Laterality Blood specimen 07/09/2017 1:29 PM 017 1:29 (specimen) EST PM EST Yuan Webber MD POINT OF CARE TEST ORDERABLE S Performing Organization Address City/State/[place] [address] POCT Glucose (07/09/2017 12:20 PM EST) P athologist Signature POC Glucose 172 65 - 199 [place] mg/dL [facility] Comment: Supplemental ranges: <140 mg/dL before meals <180 mg/dL all other times of the day Specimen Anatomical Collection Method Collection Time Receive d Time (Source) Location / / Volume Laterality Blood specimen 07/09/2017 12:20 7 (specimen) PM EST 12:20 PM EST Yuan Webber MD POINT OF CARE TEST ORDERABLE S Performing Organization Address City/State/[place] [address] POCT Glucose (07/09/2017 11:24 AM EST) P athologist Signature POC Glucose 156 65 - 199 [place] mg/dL [facility] Comment: Supplemental ranges: <140 mg/dL before meals <180 mg/dL all other times of the day Specimen Anatomical Collection Method Collection Time Receive d Time (Source) Location / / Volume Laterality Blood specimen 07/09/2017 11:24 7 (specimen) AM EST 11:24 AM EST Yuan Webber MD POINT OF CARE TEST ORDERABLE S Performing Organization Address City/State/ZIP Code Phon e Number [address] POCT Glucose (07/09/2017 11:11 AM EST) P athologist Signature POC Glucose 172 65 - 199 [place] mg/dL [facility] Comment: Supplemental ranges: <140 mg/dL before meals <180 mg/dL all other times of the day Specimen Anatomical Collection Method Collection Time Receive d Time (Source) Location / / Volume Laterality Blood specimen 07/09/2017 11:11 7 (specimen) AM EST 11:11 AM EST Yuan Webber MD POINT OF CARE TEST ORDERABLE S Performing Organization Address City/State/ZIP Code Phon e Number [address] POCT Glucose (07/09/2017 10:08 AM EST) athologist Signature POC Glucose 176 65 - 199 [place] mg/dL [facility] Comment: Supplemental ranges: <140 mg/dL before meals <180 mg/dL all other times of the day Specimen Anatomical Collection Method Collection Time Receive d Time (Source) Location / / Volume Laterality Blood specimen 07/09/2017 10:08 7 (specimen) AM EST 10:08 AM EST Yuan Webber MD POINT OF CARE TEST ORDERABLE S Performing Organization Address City/State/ZIP Code Phon e Number [address] POCT Glucose (07/09/2017 8:02 AM EST) athologist Signature POC Glucose 178 65 - 199 [facility] SU mg/dL [facility] Comment: Supplemental ranges: <140 mg/dL before meals <180 mg/dL all other times of the day Specimen Anatomical Collection Method Collection Time Receive d Time (Source) Location / / Volume Laterality Blood specimen 07/09/2017 8:02 AM 017 8:02 (specimen) EST AM EST Yuan Webber MD POINT OF CARE TEST ORDERABLE S Performing Organization Address City/State/[place] [address] (ABNORMAL) BLOOD GAS 2 ARTERIAL (07/09/2017 5:37 AM EST) Analysis Performed At Patho logist Time Signature pH Art 7.36 7.35 - [facility] 7.45 [facility] LABOR[facility]ORY pCO2 Art 38 35 - 45 [facility] mmHg [facility] LABORATORY pO2 Art 79 (L) 85 - 104 [facility] LABORATORY HCO3 Art 20.9 20.0 - [facility] 26.0 [facility] mmol/L [facility] LABORATORY BE Art -4.6 (L) -3.0 - 3.0 [facility] mmol/L [facility] LABORATORY Hgb Blood Gas 10.5 (L) 13.7 - [facility] 16.5 gm/dL [facility] O2HB Art 93.8 (L) 94.0 - [facility] 97.0 % [facility] LABORATORY COHB Art 0.3 % [facility] LABORATORY Comment: Nonsmokers: 0.5-1.5% COHB Smokers: Variable, but usually less than 10% Toxic: 20-30% COHB Lethal: Greater than 60% COHB METHB Art 0.6 <=1.5 % [facility] LABORATORY Na Whole Blood 141 135 - 145 mmol/L [facility] LABORATORY K Whole Blood 4.5 3.5 - 5.0 mmol/L [facility] LABORATORY Comment: Please note: Patients with WBC >100,000 may have falsely elevated Potassium levels. Contact the Clinical Chemistry L aboratory if there are any questions. ICa Whole Blood 1.01 (L) 1.15 - 1.33 mmol/L [facility] LABORATORY Comment: Note: ??Total bilirubin higher than 20 m g/dL may lead to falsely low ionized calcium. CL Whole Blood 113 (H) 98 - 107 mmol/L [facility] LABORATORY Gluc Whole Bld 175 65 - 199 mg/dL [facility] LABORATORY Comment: Diabetes: >=200 mg/dL plus symp toms. Lactate WB 1.0 0.5 - 2.2 mmol/L [facility]OR[facility] FIO2 Art 40 % [facility] PF Ratio Art 198 [facility] LABORATORY Specimen Anatomical Collection Method Collection Time Receive d Time (Source) Location / / Volume Laterality Blood specimen 07/09/2017 5:37 AM 017 5:37 (specimen) EST AM EST Yuan Webber MD CHEMISTRY ORDERABLES Performing Organization Address [facility] Phon e Number [address] POCT Glucose (07/09/2017 3:27 AM EST) athologist Signature POC Glucose 192 65 - 199 [facility]dL [facility] Comment: Supplemental ranges: <140 mg/dL before meals <180 mg/dL all other times of the day Specimen Anatomical Collection Method Collection Time Receive d Time (Source) Location / / Volume Laterality Blood specimen 07/09/2017 3:27 AM 017 3:27 (specimen) EST AM EST Yuan Webber MD POINT OF CARE TEST ORDERABLE S Performing Organization Address City/[facility]/ZIP Code Phon e Number [address] (ABNORMAL) Basic Metabolic Panel (non-fasting) (07/09/2017 2:30 AM EST) athologist Signature Glucose Lvl 179 65 - 199 [facility] mg/dL [facility] Comment: Diabetes: >=200 mg/dL plus symp toms BUN 17 10 - 20 mg/dL [facility] LABORATORY Creatinine 1.34 0.80 - 1.50 mg/dL [facility] LABORATORY Sodium 144 135 - 145 mmol/L [facility] LABORATORY Potassium Not Perf 3.5 - 5.0 mmol/L [facility] LABORATORY Comment: Duplicate order Please note: ??Patients with WBC >100,00 0 may have falsely elevated Potassium levels. ??For accurate Potassium quantif ication in these patients send serum separator tube (gold top) for subsequent determinations. ??Contact the Clinical Chemistry Laboratory if there are any qu estions. Chloride 111 (H) 98 - 107 mmol/L [facility] LABORATORY CO2 21 (L) 22 - 31 mmol/L [facility] LABORATORY Anion Gap 12 5 - 15 mmol/L [facility] LABORATORY Calcium 7.1 (L) 8.5 - 10.5 mg/dL [facility] LABORATORY Comment: result rechecked-JLK Estimated GFR 53 (L) >=60 [facility] LABORATORY Comment: The reported eGFR should be multiplied b y 1.2 for patients. The MDRD is not an appropriate measure o f renal function for patients with body mass extremes or in patients with acute kidney failure. http://IntheGlo/DHnkdep http://IntheGlo/DHMCnkf Specimen Anatomical Collection Method Collection Time Receive d Time (Source) Location / / Volume Laterality Blood specimen Venous Draw / 07/09/2017 2:30 AM 2016 2:42 (specimen) Unknown EST AM EST Resulting Agency Comment Spec In Lab Yuan Webber MD CHEMISTRY ORDERABLES Performing Organization Address City/State/[place] [address] (ABNORMAL) Potassium (07/09/2017 2:30 AM EST) P athologist Signature Potassium 5.1 (H) 3.5 - 5.0 [facility] mmol/L [facility] LABOR[facility] Comment: Please note: ??Patients with [...] Organization Address City/State/ZIP Code Phon e Number [place] [id number] (ABNORMAL) Hemogram (07/09/2017 2:30 AM EST) Analysis Performed At Patho logist Time Signature WBC 12.5 (H) 4.0 - 9.5 [facility] x[facility](3[facility] LABORATORY RBC 3.38 (L) 4.58 - [place] 5.54 [facility] x10(6)/[facility] LABORATORY Hemoglobin 10.1 (L) 13.7 - [facility] 16.5 gm/dL [facility] Hematocrit 30.3 (L) 40.5 - [facility] 48.5 % [facility] MCV 89.6 82.9 - [facility] 93.1 [facility] LABORATORY MCH 29.9 27.5 - [facility] 32.1 pg [facility]AT[facility] MCHC 33.3 32.0 - [facility] 35.7 gm/dL [facility] Platelets 127 (L) 145 - 357 [facility] x10(3)/[facility] LABORATORY RDWSD 49.3 (H) 36.0 - [facility] 45.0 [facility] LABORATORY RDWCV 15.2 (H) 11.4 - [facility] 13.8 % [facility] LABORATORY MPV 9.9 7.6 - 12.9 [facility] LAB[facility]ORY nRBC % Auto 0.0 % [facility] LABORATORY nRBC Abs Auto 0.000 0.000 - [facility] SU 0.000 [facility] x10(3)/[facility] LABORATORY Specimen Anatomical Collection Method Collection Time Receive d Time (Source) Location / / Volume Laterality Blood specimen 07/09/2017 2:30 AM 017 2:41 (specimen) EST AM EST Resulting Agency Comment Spec In Lab Yuan Webber MD HEMATOLOGY ORDERABLES Performing Organization Address City/State/Z[place] [address] [facility] [address] POCT Glucose (07/09/2017 2:10 AM EST) P athologist Signature POC Glucose 169 65 - 199 [place] mg/dL [facility] LABORATORY Comment: Supplemental ranges: <140 mg/dL before meals <180 mg/dL all other times of the day Specimen Anatomical Collection Method Collection Time Receive d Time (Source) Location / / Volume Laterality Blood specimen 07/09/2017 2:10 AM 017 2:10 (specimen) EST AM EST Yuan Webber MD POINT OF CARE TEST ORDERABLE S Performing Organization Address City/[facility]/ZIP Code Phon e Number [address] POCT Glucose (07/09/2017 1:01 AM EST) P athologist Signature POC Glucose 173 65 - 199 [place] mg/dL [facility] Comment: Supplemental ranges: <140 mg/dL before meals <180 mg/dL all other times of the day Specimen Anatomical Collection Method Collection Time Receive d Time (Source) Location / / Volume Laterality Blood specimen 07/09/2017 1:01 AM 017 1:01 (specimen) EST AM EST Yuan Webber MD POINT OF CARE TEST ORDERABLE S Performing Organization Address City/[facility]/[place] [address] Blood culture (07/09/2017 12:40 AM EST) Patholo gist Method Time Signature Blood Culture No growth [place] at 5 days. [facility] LABORATORY Specimen Anatomical Collection Method Collection Time Receive d Time (Source) Location / / Volume Laterality Blood specimen STRUCTURE OF RIGHT 07/09/2017 12:40 3:58 (specimen) UPPER LIMB / AM EST AM EST Unknown Resulting Agency Comment Spec In Lab Yuan Webber MD MICROBIOLOGY - BLOOD ORDERAB LES Performing Organization Address City/State/[place] [address] Blood culture (07/09/2017 12:30 AM EST) Patholo gist Method Time Signature Blood Culture No growth [place] at 5 days. [facility] LABOR[facility]ORY Specimen Anatomical Collection Method Collection Time Receive d Time (Source) Location / / Volume Laterality Blood specimen STRUCTURE OF LEFT 07/09/2017 12:30 1211/2016 3:59 (specimen) UPPER LIMB / AM EST AM EST Unknown Resulting Agency Comment Spec In Lab Yuan Webber MD MICROBIOLOGY - BLOOD ORDERAB LES Performing Organization Address City/State/[place] [address] (ABNORMAL) Urinalysis Microscopic Exam (07/09/2017 12:05 AM EST) Analysis Performed At Patho logist Time Signature RBC UA 32 (H) 0 - 3 /HPF [facility] LABORATORY WBC UA 5 (H) 0 - 3 /HPF [facility] LABORATORY Squam Epith UA <1 <=4 /HPF [facility] LABORATORY Hyaline Cast 17 (H) 0 - 2 /LPF [facility] LABORATORY Gran Cast UA 1 (H) <=0 /LPF [facility] LABORATORY Uric Ac Bianca Rare (A) None /HPF [facility] LABORATORY Specimen (Source) Anatomical Collection Method Collection Time Re ceived Time Location / / Volume Laterality Urine specimen 07/09/2017 12:05 07/09/ 7 obtained via AM EST 12:39 AM EST indwelling urinary catheter (specimen) Resulting Agency Comment Spec In Lab Yuan Webber MD URINE ORDERABLES Performing Organization Address City/[facility]/[place] [address] (ABNORMAL) Urinalysis with reflex Culture (07/09/2017 12:05 AM EST) Patholo gist Method Time Signature Glucose UA Negative Negative [facility] mg/dL [facility] Protein UA 30 (A) Negative [facility] mg/dL [facility] Bilirubin UA Negative Negative [facility] mg/dL [facility] Comment: Clinical correlation required for positi ve Urine Bilirubin results as false positive may occur with some drugs and d rug related products. If a false positive is suspected a serum total bili yeager should be considered if clinically indicated. Urobilinogen UA Normal Normal mg/dL [facility] LABORATORY pH UA 5.0 5.0 - 8.0 [facility] LABORATORY Blood UA Moderate (A) Negative mg/dL [facility] Ketones UA Negative Negative mg/dL [facility] LABORATORY Nitrite UA Negative Negative [facility] LABORATORY Leukocytes UA Negative Negative [facility] LABORATORY Appearance UA Hazy (A) Clear [facility] LABORATORY Spec [place] UA 1.025 1.002 - 1.030 [facility] LABORATORY Color UA Yellow Yellow [facility] LABORATORY Culture Reflexed No [facility] LABORATORY Specimen (Source) Anatomical Collection Method Collection Time Re ceived Time Location / / Volume Laterality Urine specimen 07/09/2017 12:05 7 obtained via AM EST 12:39 AM EST indwelling urinary catheter (specimen) Resulting Agency Comment Spec In Lab Yuan Webber MD URINE ORDERABLES Performing Organization Address City/[facility]/ZIP Code Phon e Number [address] POCT Glucose (07/08/2017 11:01 PM EST) athologist Signature POC Glucose 191 65 - 199 [facility]dL [facility] Comment: Supplemental ranges: <140 mg/dL before meals <180 mg/dL all other times of the day Specimen Anatomical Collection Method Collection Time Receive d Time (Source) Location / / Volume Laterality Blood specimen 07/08/2017 11:01 7 (specimen) PM EST 11:01 PM EST Yuan Webber MD POINT OF CARE TEST ORDERABLE S Performing Organization Address City/State/ZIP Code Phon e Number [address] POCT Glucose (07/08/2017 10:04 PM EST) athologist Signature POC Glucose 198 65 - 199 [facility] Comment: Supplemental ranges: <140 mg/dL before meals <180 mg/dL all other times of the day Specimen Anatomical Collection Method Collection Time Receive d Time (Source) Location / / Volume Laterality Blood specimen 07/08/2017 10:04 7 (specimen) PM EST 10:04 PM EST Yuan Webber MD POINT OF CARE TEST ORDERABLE S Performing Organization Address City/State/[place] [address] Prepare Albumin 5% in 250 mL (07/08/2017 8:49 PM EST) P athologist Signature Dispensed? Yes [facility] LABORATORY Specimen Anatomical Collection Method Collection Time Receive d Time (Source) Location / / Volume Laterality Blood specimen No Charge / 07/08/2017 8:49 PM 017 8:51 (specimen) Unknown EST PM EST Resulting Agency Comment Spec In Lab [facility] ORDERABLES Performing Organization Address City/State/[place] [address] POCT Glucose (07/08/2017 8:28 PM EST) P athologist Signature POC Glucose 195 65 - 199 [facility] mg/dL [facility] Comment: Supplemental ranges: <140 mg/dL before meals <180 mg/dL all other times of the day Specimen Anatomical Collection Method Collection Time Receive d Time (Source) Location / / Volume Laterality Blood specimen 07/08/2017 8:28 PM 017 8:28 (specimen) EST PM EST Yuan Webber MD POINT OF CARE TEST ORDERABLE S Performing Organization Address City/State/[place] [address] (ABNORMAL) POCT Glucose (07/08/2017 7:13 PM EST) P athologist Signature POC Glucose 220 (H) 65 - 199 [facility] mg/dL [facility] Comment: Supplemental ranges: <140 mg/dL before meals <180 mg/dL all other times of the day Specimen Anatomical Collection Method Collection Time Receive d Time (Source) Location / / Volume Laterality Blood specimen 07/08/2017 7:13 PM 017 7:13 (specimen) EST PM EST Yuan Webber MD POINT OF CARE TEST ORDERABLE S Performing Organization Address City/State/ZIP Code Phon e Number [address] POCT Glucose (07/08/2017 5:04 PM EST) P athologist Signature POC Glucose 147 65 - 199 [facility] mg/dL [facility] Comment: Supplemental ranges: <140 mg/dL before meals <180 mg/dL all other times of the day Specimen Anatomical Collection Method Collection Time Receive d Time (Source) Location / / Volume Laterality Blood specimen 07/08/2017 5:04 PM 017 5:04 (specimen) EST PM EST Yuan Webber MD POINT OF CARE TEST ORDERABLE S Performing Organization Address City/State/[place] [address] (ABNORMAL) BLOOD GAS 2 ARTERIAL (07/08/2017 4:13 PM EST) Analysis Performed At Patho logist Time Signature pH Art 7.38 7.35 - [facility] 7.45 [facility] LABORATORY pCO2 Art 36 35 - 45 [facility] LABORATORY pO2 Art 91 85 - 104 [facility] LABORATORY HCO3 Art 20.9 20.0 - [facility] 26.0 [facility] mmol/L [facility] LABORATORY BE Art -4.2 (L) -3.0 - 3.0 [facility] mmol/L [facility] LABORATORY Hgb Blood Gas 11.7 (L) 13.7 - [facility] 16.5 gm/dL [facility] O2HB Art 95.1 94.0 - [facility] 97.0 % [facility] LABORATORY COHB Art 0.6 % [facility] LABORATORY Comment: Nonsmokers: 0.5-1.5% COHB Smokers: Variable, but usually less than 10% Toxic: 20-30% COHB Lethal: Greater than 60% COHB METHB Art 0.6 <=1.5 % [facility] LABORATORY Na Whole Blood 139 135 - 145 mmol/L [facility] LABORATORY K Whole Blood 4.2 3.5 - 5.0 mmol/L [facility] LABORATORY Comment: Please note: Patients with WBC >100,000 may have falsely elevated Potassium levels. Contact the Clinical Chemistry L aboratory if there are any questions. ICa Whole Blood 1.05 (L) 1.15 - 1.33 mmol/L [facility] LABORATORY Comment: Note: ??Total bilirubin higher than 20 m g/dL may lead to falsely low ionized calcium. CL Whole Blood 110 (H) 98 - 107 mmol/L [facility] LABORATORY Gluc Whole Bld 155 65 - 199 mg/dL [facility] LABORATORY Comment: Diabetes: >=200 mg/dL plus symp toms. Lactate WB 1.4 0.5 - 2.2 mmol/L [facility]OR[facility] FIO2 Art 40 % [facility] PF Ratio Art 228 [facility] LABORATORY Specimen Anatomical Collection Method Collection Time Receive d Time (Source) Location / / Volume Laterality Blood specimen 07/08/2017 4:13 PM 017 4:13 (specimen) EST PM EST Yuan Webber MD CHEMISTRY ORDERABLES Performing Organization Address City/[facility] Code Phon e Number [address] POCT Glucose (07/08/2017 4:01 PM EST) athologist Signature POC Glucose 148 65 - 199 [facility]dL [facility] Comment: Supplemental ranges: <140 mg/dL before meals <180 mg/dL all other times of the day Specimen Anatomical Collection Method Collection Time Receive d Time (Source) Location / / Volume Laterality Blood specimen 07/08/2017 4:01 PM 017 4:01 (specimen) EST PM EST Yuan Webber MD POINT OF CARE TEST ORDERABLE S Performing Organization Address City/[facility] Code Phon e Number [address] POCT Glucose (07/08/2017 3:21 PM EST) athologist Signature POC Glucose 118 65 - 199 [facility] mg/dL [facility] Comment: Supplemental ranges: <140 mg/dL before meals <180 mg/dL all other times of the day Specimen Anatomical Collection Method Collection Time Receive d Time (Source) Location / / Volume Laterality Blood specimen 07/08/2017 3:21 PM 017 3:21 (specimen) EST PM EST Yuan Webber MD POINT OF CARE TEST ORDERABLE S Performing Organization Address City/State/ZIP Code Phon e Number [address] POCT Glucose (07/08/2017 2:01 PM EST) athologist Signature POC Glucose 129 65 - 199 [place] mg/dL [facility] LABOR[facility] Comment: Supplemental ranges: <140 mg/dL before meals <180 mg/dL all other times of the day Specimen Anatomical Collection Method Collection Time Receive d Time (Source) Location / / Volume Laterality Blood specimen 07/08/2017 2:01 PM 017 2:01 (specimen) EST PM EST Yuan Webber MD POINT OF CARE TEST ORDERABLE S Performing Organization Address City/State/ZIP Code Phon e Number [address] POCT Glucose (07/08/2017 11:53 AM EST) athologist Signature POC Glucose 156 65 - 199 KATALINA ZHAOSU mg/dL [facility] Comment: Supplemental ranges: <140 mg/dL before meals <180 mg/dL all other times of the day Specimen Anatomical Collection Method Collection Time Receive d Time (Source) Location / / Volume Laterality Blood specimen 07/08/2017 11:53 7 (specimen) AM EST 11:53 AM EST Yuan Webber MD POINT OF CARE TEST ORDERABLE S Performing Organization Address City/State/ZIP Code Phon e Number [address] POCT Glucose (07/08/2017 11:04 AM EST) athologist Signature POC Glucose 181 65 - 199 KATAL[place] ZHAOSU mg/dL [facility] Comment: Supplemental ranges: <140 mg/dL before meals <180 mg/dL all other times of the day Specimen Anatomical Collection Method Collection Time Receive d Time (Source) Location / / Volume Laterality Blood specimen 07/08/2017 11:04 7 (specimen) AM EST 11:04 AM EST Yuan Webber MD POINT OF CARE TEST ORDERABLE S Performing Organization Address City/[facility]/[place] [address] (ABNORMAL) POCT Glucose (07/08/2017 9:24 AM EST) P athologist Signature POC Glucose 203 (H) 65 - 199 [facility] mg/dL [facility] Comment: Supplemental ranges: <140 mg/dL before meals <180 mg/dL all other times of the day Specimen Anatomical Collection Method Collection Time Receive d Time (Source) Location / / Volume Laterality Blood specimen 07/08/2017 9:24 AM 017 9:24 (specimen) EST AM EST Yuan Webber MD POINT OF CARE TEST ORDERABLE S Performing Organization Address City/[facility] [place] [address] APTT (07/08/2017 8:40 AM EST) athologist Signature PTT 33 25 - 35 sec [facility] Comment: The recommended therapeutic range for fu ll dose, unfractionated heparin at [facility] is 80 ? 114 seconds. [...] Webber MD HEMATOLOGY ORDERABLES Performing Organization Address City/[facility]/[place] [address] (ABNORMAL) Prothrombin Time (07/08/2017 8:40 AM EST) P athologist Signature PT 15.6 (H) 11.8 - 14.0 [facility] LABORATORY INR 1.3 (H) 0.9 - 1.1 [place] Webber MD HEMATOLOGY ORDERABLES Performing Organization Address City/[facility]/[place] [address] (ABNORMAL) POCT Glucose (07/08/2017 7:38 AM EST) athologist Signature POC Glucose 232 (H) 65 - 199 [facility] mg/dL [facility] Comment: Supplemental ranges: <140 mg/dL before meals <180 mg/dL all other times of the day Specimen Anatomical Collection Method Collection Time Receive d Time (Source) Location / / Volume Laterality Blood specimen 07/08/2017 7:38 AM 017 7:38 (specimen) EST AM EST Yuan Webber MD POINT OF CARE TEST ORDERABLE S Performing Organization Address City/[facility]/[place] [address] (ABNORMAL) POCT Glucose (07/08/2017 7:07 AM EST) athologist Signature POC Glucose 234 (H) 65 - 199 [facility]dL [facility] Comment: Supplemental ranges: <140 mg/dL before meals <180 mg/dL all other times of the day Specimen Anatomical Collection Method Collection Time Receive d Time (Source) Location / / Volume Laterality Blood specimen 07/08/2017 7:07 AM 017 7:07 (specimen) EST AM EST Yuan Webber MD POINT OF CARE TEST ORDERABLE S Performing Organization Address City/State/[place] [address] (ABNORMAL) POCT Glucose (07/08/2017 6:04 AM EST) P athologist Signature POC Glucose 225 (H) 65 - 199 [place] SU mg/dL [facility] Comment: Supplemental ranges: <140 mg/dL before meals <180 mg/dL all other times of the day Specimen Anatomical Collection Method Collection Time Receive d Time (Source) Location / / Volume Laterality Blood specimen 07/08/2017 6:04 AM 017 6:04 (specimen) EST AM EST Yuan Webber MD POINT OF CARE TEST ORDERABLE S Performing Organization Address City/[facility]/[place] [address] (ABNORMAL) POCT Glucose (07/08/2017 5:31 AM EST) P athologist Signature POC Glucose 216 (H) 65 - 199 [facility] SU mg/dL [facility] Comment: Supplemental ranges: <140 mg/dL before meals <180 mg/dL all other times of the day Specimen Anatomical Collection Method Collection Time Receive d Time (Source) Location / / Volume Laterality Blood specimen 07/08/2017 5:31 AM 017 5:31 (specimen) EST AM EST Yuan Webber MD POINT OF CARE TEST ORDERABLE S Performing Organization Address City/State/[place] [address] (ABNORMAL) POCT Glucose (07/08/2017 4:52 AM EST) P athologist Signature POC Glucose 257 (H) 65 - 199 [facility] SU mg/dL [facility] Comment: Supplemental ranges: <140 mg/dL before meals <180 mg/dL all other times of the day Specimen Anatomical Collection Method Collection Time Receive d Time (Source) Location / / Volume Laterality Blood specimen 07/08/2017 4:52 AM 017 4:52 (specimen) EST AM EST Daphne Shahid MD POINT OF CARE TEST ORDERABLE S Performing Organization Address City/State/[place] [address] (ABNORMAL) BLOOD GAS 2 ARTERIAL (07/08/2017 4:04 AM EST) Analysis Performed At Patho logist Time Signature pH Art 7.30 (L) 7.35 - [facility] 7.45 [facility] pCO2 Art 41 35 - 45 [facility] LABORATORY pO2 Art 83 (L) 85 - 104 [facility] LABORATORY HCO3 Art 19.6 (L) 20.0 - [facility] 26.0 [facility] mmol/[facility] BE Art -6.8 (L) -3.0 - 3.0 [facility] mmol/L [facility] Hgb Blood Gas 12.2 (L) 13.7 - [facility] 16.5 gm/dL [facility] O2HB Art 93.5 (L) 94.0 - [facility] 97.0 % [facility] COHB Art 0.4 % [facility] Comment: Nonsmokers: 0.5-1.5% COHB Smokers: Variable, but usually less than 10% Toxic: 20-30% COHB Lethal: Greater than 60% COHB METHB Art 0.8 <=1.5 % [facility] Na Whole Blood 138 135 - 145 mmol/L [facility] K Whole Blood 4.4 3.5 - 5.0 mmol/L [facility] Comment: Please note: Patients with WBC >100,000 may have falsely elevated Potassium levels. Contact the Clinical Chemistry L aboratory if there are any questions. ICa Whole Blood 1.05 (L) 1.15 - 1.33 mmol/L [facility] Comment: Note: ??Total bilirubin higher than 20 m g/dL may lead to falsely low ionized calcium. CL Whole Blood 107 98 - 107 mmol/L [facility] Gluc Whole Bld 274 (H) 65 - 199 mg/dL [facility] Comment: Diabetes: >=200 mg/dL plus symp toms. Lactate WB 4.4 (Critical) 0.5 - 2.2 mmol/L [facility] Comment: Noted by electrical and instrument technician. FIO2 Art 40 % [facility] PF Ratio Art 208 [facility] Specimen Anatomical Collection Method Collection Time Receive d Time (Source) Location / / Volume Laterality Blood specimen 07/08/2017 4:04 AM 017 4:04 (specimen) EST AM EST Daphne Shahid MD CHEMISTRY ORDERABLES Performing Organization Address City/[facility]/ZIP Code Phon e Number [address] Scan, Peripheral Blood (07/08/2017 4:00 AM EST) P athologist Signature Plat Estimate Normal [facility] RBC Morphology Normal [facility] Specimen Anatomical Collection Method Collection Time Receive d Time (Source) Location / / Volume Laterality Blood specimen 07/08/2017 4:00 AM 017 4:09 (specimen) EST AM EST Resulting Agency Comment Spec In Lab Yuan Webber MD HEMATOLOGY ORDERABLES Performing Organization Address City/[facility]/ZIP Code Phon e Number [address] (ABNORMAL) Differential, Automated (07/08/2017 4:00 AM EST) Patholo gist Method Time Signature Neutrophils % 85.4 % [facility] Neutr Abs (ANC) 16.07 (H) 1.70 - [facility] 6.10 [facility] x10(3)/[facility] L LABORATORY Lymphocytes % 3.5 % [facility] Lymphocytes Abs 0.6 (L) 0.9 - 3.2 [facility] x10(3)/[facility] LABORATORY Monocytes % 10.4 % [facility]ORY Monocyte Abs 2.0 (H) 0.3 - 0.9 [facility] x10(3)/[facility] LABORATORY Eosinophils % 0.0 % [facility] Eosinophils Abs 0.0 0.0 - 0.4 [facility] x10(3)/[facility] LABORATORY Basophils % 0.1 % [facility] Basophils Abs 0.0 0.0 - 0.1 [facility] x10(3)/[facility] LABORATORY Immature Gran % 0.60 % [facility] Comment: Immature granulocytes(IG's)percentage an d absolute count will include metamyelocytes, myelocytes, and promyelo cytes. Blood smears from CBCs yielding IG's will be scanned manually for concor dance. If this scan disagrees with the automated IG or if promyelocytes are not ed, a manual differential will be performed. Melisa Gran Abs 0.12 (H) 0.00 - 0.04 x10(3)/[facility] LABORATORY Specimen Anatomical Collection Method Collection Time Receive d Time (Source) Location / / Volume Laterality Blood specimen 07/08/2017 4:00 AM 017 4:09 (specimen) EST AM EST Resulting Agency Comment Spec In Lab Yuan Webber MD HEMATOLOGY ORDERABLES Performing Organization Address City/State/[place] [address] (ABNORMAL) Hemogram (07/08/2017 4:00 AM EST) Analysis Performed At Patho logist Time Signature WBC 18.8 (H) 4.0 - 9.5 [facility] x10(3)/[facility] LABORATORY RBC 4.00 (L) 4.58 - [facility] 5.54 [facility] x10(6)/[facility] LABORATORY Hemoglobin 11.9 (L) 13.7 - [facility] 16.5 gm/dL [facility] Hematocrit 35.9 (L) 40.5 - [facility] 48.5 % [facility] MCV 89.8 82.9 - [facility] 93.1 fL [facility] MCH 29.8 27.5 - [facility] 32.1 pg [facility] MCHC 33.1 32.0 - [facility] 35.7 gm/dL [facility] Platelets 232 145 - 357 [facility] x10(3)/[facility] LABORATORY RDWSD 47.6 (H) 36.0 - [facility] 45.0 [facility] LABORATORY RDWCV 14.5 (H) 11.4 - [facility] 13.8 % [facility] MPV 9.5 7.6 - 12.9 [facility] LABORATORY nRBC % Auto 0.0 % [facility] LABORATORY nRBC Abs Auto 0.000 0.000 - [facility] 0.000 [facility] x10(3)/[facility] LABORATORY Specimen Anatomical Collection Method Collection Time Receive d Time (Source) Location / / Volume Laterality Blood specimen 07/08/2017 4:00 AM 017 4:09 (specimen) EST AM EST Resulting Agency Comment Spec In Lab Yuan Webber MD HEMATOLOGY ORDERABLES Performing Organization Address City/[facility]/[place] [address] (ABNORMAL) Electrolytes panel (07/08/2017 4:00 AM EST) P athologist Signature Sodium 139 135 - 145 [facility] mmol/L [facility] Potassium 4.7 3.5 - 5.0 [facility] mmol/L [facility] Comment: result rechecked-JLK Please note: ??Patients with WBC >100,00 0 may have falsely elevated Potassium levels. ??For accurate Potassium quantif ication in these patients send serum separator tube (gold top) for subsequent determinations. ??Contact the Clinical Chemistry Laboratory if there are any qu estions. Chloride 104 98 - 107 mmol/L [facility] CO2 21 (L) 22 - 31 mmol/L [facility] Anion Gap 14 5 - 15 mmol/L [facility] Specimen Anatomical Collection Method Collection Time Receive d Time (Source) Location / / Volume Laterality Blood specimen 07/08/2017 4:00 AM 017 4:10 (specimen) EST AM EST Resulting Agency Comment Spec In Lab Yuan Webber MD CHEMISTRY ORDERABLES Performing Organization Address City/[facility]/[place] [address] (ABNORMAL) Cardiac Enzymes (LEB/CGP) (07/08/2017 4:00 AM EST) athologist Signature Troponin-T 1.88 (H) 0.00 - [facility] 0.00 ng/mL [facility] Comment: The 99th percentile for Troponin T is le ss than 0.01 ng/mL, any detectable cTnT concentration using this assay should be considered elevated. According to the third universal definit ion of myocardial infarction the following criteria with a clinical prese ntation consistent with acute myocardial ischemia meets the diagnosis for a myocardial infarction (AR). Detection of a rise and/or fall of [...] additional sample may be indicated. Reference: Third [place] Definition of Myocardial Infarction. Journal of the [place] [employer] 2012;60:1581-98 CK, Total 413 (H) 0 - 200 unit/L [facility] Comment: result rechecked-JLK Specimen Anatomical Collection Method Collection Time Receive d Time (Source) Location / / Volume Laterality Blood specimen 07/08/2017 4:00 AM 017 4:09 (specimen) EST AM EST Resulting Agency Comment Spec In Lab Yuan Webber MD CHEMISTRY ORDERABLES Performing Organization Address City/State/[place] [address] (ABNORMAL) Glucose, fasting (07/08/2017 4:00 AM EST) athologist Signature Glucose 287 (H) 65 - 99 [place] SU Fasting mg/dL [facility] Comment: ?Fasting* Glucose Interpretive C [...] of Diabetes Mellitus, Position Statement from the [place] [employer]. ??Diabete s Care, Volume 33, Supplement 1, Jul 2009 Specimen Anatomical Collection Method Collection Time Receive d Time (Source) Location / / Volume Laterality Blood specimen 07/08/2017 4:00 AM 017 4:09 (specimen) EST AM EST Resulting Agency Comment Spec In Lab Yuan Webber MD CHEMISTRY ORDERABLES Performing Organization Address City/[facility] [place] [address] (ABNORMAL) Creatinine (07/08/2017 4:00 AM EST) Analysis Performed At [facility] Time Signature Creatinine 1.55 (H) 0.80 - [facility] 1.50 mg/dL [facility] Estimated GFR 44 (L) >=60 [facility] Comment: The reported eGFR should be multiplied b y 1.2 for patients. The MDRD is not an appropriate measure o f renal function for patients with body mass extremes or in patients with acute kidney failure. http://[email or web address]/DHnkdep [email or web address]://[employer].com/DHMCnkf Specimen Anatomical Collection Method Collection Time Receive d Time (Source) Location / / Volume Laterality Blood specimen 07/08/2017 4:00 AM 017 4:09 (specimen) EST AM EST Resulting Agency Comment Spec In Lab Yuan Webber MD CHEMISTRY ORDERABLES Performing Organization Address City/[facility]/[place] [address] BUN (07/08/2017 4:00 AM EST) athologist Signature BUN 16 10 - 20 [facility] mg/dL [facility] Specimen Anatomical Collection Method Collection Time Receive d Time (Source) Location / / Volume Laterality Blood specimen 07/08/2017 4:00 AM 017 4:09 (specimen) EST AM EST Resulting Agency Comment Spec In Lab Yuan Webber MD CHEMISTRY ORDERABLES Performing Organization Address City/State/[place] [address] (ABNORMAL) POCT Glucose (07/08/2017 3:00 AM EST) athologist Signature POC Glucose 273 (H) 65 - 199 [facility] mg/dL [facility] Comment: Supplemental ranges: <140 mg/dL before meals <180 mg/dL all other times of the day Specimen Anatomical Collection Method Collection Time Receive d Time (Source) Location / / Volume Laterality Blood specimen 07/08/2017 3:00 AM 017 3:00 (specimen) EST AM EST Daphne Shahid MD POINT OF CARE TEST ORDERABLE S Performing Organization Address City/[facility]/[place] [address] (ABNORMAL) POCT Glucose (07/08/2017 1:57 AM EST) athologist Signature POC Glucose 288 (H) 65 - 199 [facility] mg/dL [facility] Comment: Supplemental ranges: <140 mg/dL before meals <180 mg/dL all other times of the day Specimen Anatomical Collection Method Collection Time Receive d Time (Source) Location / / Volume Laterality Blood specimen 07/08/2017 1:57 AM 017 1:57 (specimen) EST AM EST Daphne Shahid MD POINT OF CARE TEST ORDERABLE S Performing Organization Address City/State/[place] [address] (ABNORMAL) POCT Glucose (07/08/2017 1:01 AM EST) athologist Signature POC Glucose 315 (H) 65 - 199 [facility] mg/dL [facility] Comment: Supplemental ranges: <140 mg/dL before meals <180 mg/dL all other times of the day Specimen Anatomical Collection Method Collection Time Receive d Time (Source) Location / / Volume Laterality Blood specimen 07/08/2017 1:01 AM 017 1:01 (specimen) EST AM EST Daphne Shahid MD POINT OF CARE TEST ORDERABLE S Performing Organization Address City/State/[place] [address] (ABNORMAL) BLOOD GAS 2 ARTERIAL (07/08/2017 12:09 AM EST) athologist Signature pH Art 7.26 7.35 - [facility] (Critical) 7.45 [facility] Comment: Noted by electrical and instrument technician. pCO2 Art 41 35 - 45 mmHg [facility] pO2 Art 96 85 - 104 mmHg [facility] HCO3 Art 17.7 (L) 20.0 - 26.0 mmol/L [facility] BE Art -9.4 (L) -3.0 - 3.0 mmol/L [facility] Hgb Blood Gas 12.4 (L) 13.7 - 16.5 gm/dL [facility] O2HB Art 94.7 94.0 - 97.0 % [facility] COHB Art 0.2 % [facility] Comment: Nonsmokers: 0.5-1.5% COHB Smokers: Variable, but usually less than 10% Toxic: 20-30% COHB Lethal: Greater than 60% COHB METHB Art 0.6 <=1.5 % [facility] Na Whole Blood 141 135 - 145 mmol/L [facility] K Whole Blood 3.5 3.5 - 5.0 mmol/L [facility] Comment: Please note: Patients with WBC >100,000 may have falsely elevated Potassium levels. Contact the Clinical Chemistry L aboratory if there are any questions. ICa Whole Blood 1.03 (L) 1.15 - 1.33 mmol/L [facility] Comment: Note: ??Total bilirubin higher than 20 m g/dL may lead to falsely low ionized calcium. CL Whole Blood 109 (H) 98 - 107 mmol/L [facility] Gluc Whole Bld 315 (H) 65 - 199 mg/dL [facility] Comment: Diabetes: >=200 mg/dL plus symp toms. Lactate WB 7.6 (Critical) 0.5 - 2.2 mmol/L [facility] Comment: Noted by electrical and instrument technician. FIO2 Art 40 % [facility] PF Ratio Art 240 [facility] Specimen Anatomical Collection Method Collection Time Receive d Time (Source) Location / / Volume Laterality Blood specimen Arterial Draw / 07/08/2017 12:09 2016 5:31 (specimen) Unknown AM EST AM EST Resulting Agency Comment Spec In Lab Samy Maldonado MD CHEMISTRY ORDERABLES Performing Organization Address City/State/[place] [address] (ABNORMAL) POCT Glucose (07/07/2017 10:56 PM EST) P athologist Signature POC Glucose 292 (H) 65 - 199 [facility] mg/dL [facility] Comment: Supplemental ranges: <140 mg/dL before meals <180 mg/dL all other times of the day Specimen Anatomical Collection Method Collection Time Receive d Time (Source) Location / / Volume Laterality Blood specimen 07/07/2017 10:56 7 (specimen) PM EST 10:56 PM EST Daphne Shahid MD POINT OF CARE TEST ORDERABLE S Performing Organization Address City/State/[place] [address] (ABNORMAL) BLOOD GAS 2 ARTERIAL (07/07/2017 10:04 PM EST) athologist Signature pH Art 7.22 7.35 - [facility] (Critical) 7.45 [facility] Comment: Noted by electrical and instrument technician. pCO2 Art 42 35 - 45 mmHg [facility] pO2 Art 94 85 - 104 mmHg [facility] HCO3 Art 16.9 (L) 20.0 - 26.0 mmol/L [facility] BE Art -10.7 (L) -3.0 - 3.0 mmol/L [facility] Hgb Blood Gas 13.0 (L) 13.7 - 16.5 gm/dL [facility] O2HB Art 93.8 (L) 94.0 - 97.0 % [facility] COHB Art 0.7 % [facility] Comment: Nonsmokers: 0.5-1.5% COHB Smokers: Variable, but usually less than 10% Toxic: 20-30% COHB Lethal: Greater than 60% COHB METHB Art 0.7 <=1.5 % [facility] Na Whole Blood 140 135 - 145 mmol/L [facility] K Whole Blood 3.3 (L) 3.5 - 5.0 mmol/L [facility] Comment: Please note: Patients with WBC >100,000 may have falsely elevated Potassium levels. Contact the Clinical Chemistry L aboratory if there are any questions. ICa Whole Blood 1.07 (L) 1.15 - 1.33 mmol/L [facility] Comment: Note: ??Total bilirubin higher than 20 m g/dL may lead to falsely low ionized calcium. CL Whole Blood 107 98 - 107 mmol/L [facility] Gluc Whole Bld 304 (H) 65 - 199 mg/dL [facility] Comment: Diabetes: >=200 mg/dL plus symp toms. Lactate WB 8.2 (Critical) 0.5 - 2.2 mmol/L [facility] Comment: Noted by electrical and instrument technician. FIO2 Art 40 % [facility] PF Ratio Art 235 [facility] Specimen Anatomical Collection Method Collection Time Receive d Time (Source) Location / / Volume Laterality Blood specimen 07/07/2017:04 7 (specimen) PM EST 10:04 PM EST Daphne Shahid MD CHEMISTRY ORDERABLES Performing Organization Address City/[facility] [place] [address] (ABNORMAL) Hemoglobin (07/07/2017 10:00 PM EST) athologist Signature Hemoglobin 12.8 (L) 13.7 - [place] [facility] 16.5 gm/dL [facility] Specimen Anatomical Collection Method Collection Time Receive d Time (Source) Location / / Volume Laterality Blood specimen 07/07/2017 10:00 7 (specimen) PM EST 10:13 PM EST Resulting Agency Comment Spec In Lab Yuan Webber MD HEMATOLOGY ORDERABLES Performing Organization Address [facility] [place] [address] [address] (ABNORMAL) Potassium (07/07/2017 10:00 PM EST) athologist Signature Potassium 3.4 (L) 3.5 - 5.0 [facility] mmol/L [facility] Comment: Please note: ??Patients with [...] Webber MD CHEMISTRY ORDERABLES Performing Organization Address City/[facility]/ZIP [facility] [place] [address] (ABNORMAL) POCT Glucose (07/07/2017 8:49 PM EST) athologist Signature POC Glucose 241 (H) 65 - 199 [facility] mg/dL [facility] Comment: Supplemental ranges: <140 mg/dL before meals <180 mg/dL all other times of the day Specimen Anatomical Collection Method Collection Time Receive d Time (Source) Location / / Volume Laterality Blood specimen 07/07/2017 8:49 PM 017 8:49 (specimen) EST PM EST Daphne Shahid MD POINT OF CARE TEST ORDERABLE S Performing Organization Address City/[facility]/[place] [address] Prepare Albumin 5% in 250 mL (07/07/2017 8:03 PM EST) P athologist Signature Dispensed? Yes [facility] LABORATORY Specimen Anatomical Collection Method Collection Time Receive d Time (Source) Location / / Volume Laterality Blood specimen No Charge / 07/07/2017 8:03 PM 017 8:04 (specimen) Unknown EST PM EST Resulting Agency Comment Spec In Lab Michael BROWN BLOOD BANK ORDERABLES Performing Organization Address [facility]/[place] [address] EKG 12 Lead (07/07/2017 7:17 PM EST) Component Value Ref Range Test Analysis Performed Pathologis t Method Time At Signature Ventricular rate 75 BPM MUSE SYSTEM Atrial Rate 75 BPM MUSE SYSTEM P-R Interval 168 ms MUSE SYSTEM QRS Duration 104 ms MUSE SYSTEM Q-T Interval 462 ms MUSE SYSTEM QTC Calculated 515 ms MUSE SYSTEM (Bezet) Calculated P [place] 52 degrees MUSE SYSTEM Calculated R [place] -40 degrees MUSE SYSTEM Calculated T [place] 39 degrees MUSE SYSTEM INTERPRETATION Normal sinus [...] / / Volume Laterality 07/07/2017 7:17 PM 8:11 EST AM EST Yuan Webber MD [...] athologist Signature pH Art 7.21 7.35 - [facility] (Critical) 7.45 [facility] Comment: Noted by electrical and instrument technician. pCO2 Art 50 (H) 35 - 45 mmHg [facility] pO2 Art 238 (H) 85 - 104 mmHg [facility] LABORATORY HCO3 Art 19.8 (L) 20.0 - 26.0 mmol/L [facility] BE Art -8.1 (L) -3.0 - 3.0 mmol/L [facility] Hgb Blood Gas 12.8 (L) 13.7 - 16.5 gm/dL [facility] O2HB Art 97.5 (H) 94.0 - 97.0 % [facility] LABORATORY COHB Art 0.5 % [facility] Comment: Nonsmokers: 0.5-1.5% COHB Smokers: Variable, but usually less than 10% Toxic: 20-30% COHB Lethal: Greater than 60% COHB METHB Art 0.7 <=1.5 % [facility] Na Whole Blood 140 135 - 145 mmol/L [facility] K Whole Blood 3.0 (Critical) 3.5 - 5.0 mmol/L [facility] Comment: Noted by electrical and instrument technician. Please note: Patients with WBC >100,000 may have falsely elevated Potassium levels. Contact the Clinical Chemistry L aboratory if there are any questions. ICa Whole Blood 1.07 (L) 1.15 - 1.33 mmol/L [facility] Comment: Note: ??Total bilirubin higher than 20 m g/dL may lead to falsely low ionized calcium. CL Whole Blood 107 98 - 107 mmol/L [facility] Gluc Whole Bld 270 (H) 65 - 199 mg/dL [facility] Comment: Diabetes: >=200 mg/dL plus symp toms. Lactate WB 4.9 (Critical) 0.5 - 2.2 mmol/L [facility] Comment: Noted by electrical and instrument technician. FIO2 Art 100 % [facility] PF Ratio Art 238 [facility] Specimen Anatomical Collection Method Collection Time Receive d Time (Source) Location / / Volume Laterality Blood specimen 07/07/2017 6:57 PM 017 6:57 (specimen) EST PM EST Daphne Shahid MD CHEMISTRY ORDERABLES Performing Organization Address City/State/ZIP [place] [address] (ABNORMAL) BLOOD GAS 2 ARTERIAL (07/07/2017 5:31 PM EST) athologist Signature pH Art 7.29 7.35 - [facility] (Critical) 7.45 [facility] Comment: Noted by electrical and instrument technician. pCO2 Art 48 (H) 35 - 45 mmHg [facility] pO2 Art 137 (H) 85 - 104 mmHg [facility] LABORATORY HCO3 Art 22.4 20.0 - 26.0 mmol/L [facility] BE Art -4.3 (L) -3.0 - 3.0 mmol/L [facility] Hgb Blood Gas 10.0 (L) 13.7 - 16.5 gm/dL [facility] O2HB Art 97.3 (H) 94.0 - 97.0 % [facility] LABORATORY COHB Art 0.3 % [facility] Comment: Nonsmokers: 0.5-1.5% COHB Smokers: Variable, but usually less than 10% Toxic: 20-30% COHB Lethal: Greater than 60% COHB METHB Art 0.3 <=1.5 % [facility] Na Whole Blood 132 (L) 135 - 145 mmol/L [facility] K Whole Blood 4.0 3.5 - 5.0 mmol/L [facility] Comment: Please note: Patients with WBC >100,000 may have falsely elevated Potassium levels. Contact the Clinical Chemistry L aboratory if there are any questions. ICa Whole Blood 1.14 (L) 1.15 - 1.33 mmol/L [facility] Comment: Note: ??Total bilirubin higher than 20 m g/dL may lead to falsely low ionized calcium. CL Whole Blood 105 98 - 107 mmol/L [facility] Gluc Whole Bld 293 (H) 65 - 199 mg/dL [facility] Comment: Diabetes: >=200 mg/dL plus symp toms. Lactate WB 3.1 (H) 0.5 - 2.2 mmol/L [facility] Specimen Anatomical Collection Method Collection Time Receive d Time (Source) Location / / Volume Laterality Blood specimen 07/07/2017 5:31 PM 017 5:31 (specimen) EST PM EST Daphne Shahid MD CHEMISTRY ORDERABLES Performing Organization Address City/[facility] Phon e Number [address] Fibrinogen (07/07/2017 5:30 PM EST) athologist Signature Fibrinogen 224 180 - 510 [facility] mg/dL [facility] Comment: Called by: JEET, Read [...] Perez MD HEMATOLOGY ORDERABLES Performing Organization Address [facility] Phon e Number [address] APTT (07/07/2017 5:30 PM EST) P athologist Signature PTT 30 25 - 35 sec [facility]ORATORY Comment: The recommended therapeutic range for fu ll dose, unfractionated heparin at [facility] is 80 ? 114 seconds. [...] Perez MD HEMATOLOGY ORDERABLES Performing Organization Address City/[facility]/[place] [address] (ABNORMAL) Prothrombin Time (07/07/2017 5:30 PM EST) P athologist Signature PT 19.0 (H) 11.8 - 14.0 [facility] LABORATORY INR 1.6 (H) 0.9 - 1.1 [facility] Perez MD HEMATOLOGY ORDERABLES Performing Organization Address City/[facility] [place] [address] (ABNORMAL) Hemogram (07/07/2017 5:30 PM EST) P athologist Signature WBC 19.6 (H) 4.0 - 9.5 [facility] x10(3)/[facility] LABORATORY RBC 3.08 (L) 4.58 - [facility] 5.54 [facility] x10(6)/[facility] LABORATORY Hemoglobin 9.2 (L) 13.7 - [facility] 16.5 gm/dL [facility] Hematocrit 28.0 (L) 40.5 - [facility] 48.5 % [facility] Comment: This result has been called to MONICA MORAN by DONALD GROSSMAN on 07 07 2017 at 1759, and has been read back. MCV 90.9 82.9 - 93.1 fL [facility] LABORATORY MCH 29.9 27.5 - 32.1 pg [facility] LABORATORY MCHC 32.9 32.0 - 35.7 gm/dL [facility] Platelets 155 145 - 357 x10(3)/[facility] LABORATORY RDWSD 46.5 (H) 36.0 - 45.0 fL [facility] LABORATORY RDWCV 14.1 (H) 11.4 - 13.8 % [facility] LABORATORY MPV 9.5 7.6 - 12.9 [facility] LABORATORY nRBC % Auto 0.0 % [facility] LABORATORY nRBC Abs Auto 0.000 0.000 - 0.000 x10(3)/[facility] LABORATORY Specimen Anatomical Collection Method Collection Time Receive d Time (Source) Location / / Volume Laterality Blood specimen 07/07/2017 5:30 PM 017 5:34 (specimen) EST PM EST Resulting Agency Comment Spec In Lab Yifan Perez MD HEMATOLOGY ORDERABLES Performing Organization Address City/[facility]/ZIP [facility] Phon e Number [address] Prepare Platelets, Apheresis (07/07/2017 5:00 PM EST) P athologist Signature Dispensed? Yes [facility] LABORATORY Specimen Anatomical Collection Method Collection Time Receive d Time (Source) Location / / Volume Laterality Blood specimen 07/07/2017 5:00 PM 017 4:58 (specimen) EST PM EST Daphne Shahid MD BLOOD BANK ORDERABLES Performing Organization Address City/[facility] Phon e Number [address] Platelet count (07/07/2017 4:55 PM EST) P athologist Signature Platelets 177 145 - 357 [facility] x10(3)/[facility] LABORATORY Plat Immature 1.5 0.0 - 7.4 [facility] LABORATORY Comment: Limitation of the Immature Platelet Frac tion (IPF)-May be less reliable when the platelet count is less than 25l271/u L due to statistical imprecision. The IPF [...] in a decreased state of production. References: [employer] The Clinical Value of the Immature Platelet Fraction (IPF) in Cell Recovery Document Number 10-1143 12/2010 [employer] The Role of the Imm ature Platelet Fraction (IPF) in the Differential Diagnosis of Thrombocytopen ia, Document [id number] V012/04/13 Specimen Anatomical Collection Method Collection Time Receive d Time (Source) Location / / Volume Laterality Blood specimen 07/07/2017 4:55 PM 017 5:13 (specimen) EST PM EST Resulting Agency Comment Spec In Lab Daphne Shahid MD HEMATOLOGY ORDERABLES Performing Organization Address City/State/[place] [address] (ABNORMAL) Hemoglobin and Hematocrit, blood (07/07/2017 4:55 PM EST) P athologist Signature Hemoglobin 9.1 (L) 13.7 - 16.5 [facility] gm/dL [facility] Comment: This result has been called to MALKA MORAN by DONALD GROSSMAN on 07 07 2017 at 1734, and has been read back. Hematocrit 26.6 (L) 40.5 - 48.5 % [facility] LABORATORY Comment: This result has [...] Organization Address City/State/[place] [address] (ABNORMAL) BLOOD GAS 2 ARTERIAL (07/07/2017 4:38 PM EST) Analysis Performed At Patho logist Time Signature pH Art 7.37 7.35 - [facility] 7.45 [facility] pCO2 Art 44 35 - 45 [facility] mmHg [facility] pO2 Art 322 (H) 85 - 104 [facility] LABORATORY HCO3 Art 24.9 20.0 - [facility] 26.0 [facility] mmol/L [facility] LABORATORY BE Art -0.4 -3.0 - 3.0 [facility] mmol/L [facility] Hgb Blood Gas 10.1 (L) 13.7 - [facility] 16.5 gm/dL [facility] O2HB Art 98.7 (H) 94.0 - [facility] 97.0 % [facility] COHB Art 0.1 % [facility] LABORATORY Comment: Nonsmokers: 0.5-1.5% COHB Smokers: Variable, but usually less than 10% Toxic: 20-30% COHB Lethal: Greater than 60% COHB METHB Art 0.3 <=1.5 % [facility] Na Whole Blood 130 (L) 135 - 145 mmol/L [facility] K Whole Blood 5.7 (H) 3.5 - 5.0 mmol/L [facility] Comment: Please note: Patients with WBC >100,000 may have falsely elevated Potassium levels. Contact the Clinical Chemistry L aboratory if there are any questions. ICa Whole Blood 0.89 (Critical) 1.15 - 1.33 mmol/L [facility] LABORATORY Comment: Noted by electrical and instrument technician. Note: ??Total bilirubin higher than 20 m g/dL may lead to falsely low ionized calcium. CL Whole Blood 101 98 - 107 mmol/L [facility] Gluc Whole Bld 295 (H) 65 - 199 mg/dL [facility] Comment: Diabetes: >=200 mg/dL plus symp toms. Lactate WB 1.7 0.5 - 2.2 mmol/L [facility] Specimen Anatomical Collection Method Collection Time Receive d Time (Source) Location / / Volume Laterality Blood specimen 07/07/2017 4:38 PM 017 4:38 (specimen) EST PM EST Daphne Shahid MD CHEMISTRY ORDERABLES Performing Organization Address City/State/[place] [address] (ABNORMAL) BLOOD GAS 2 VENOUS (07/07/2017 4:06 PM EST) Analysis Performed At Patho logist Time Signature pH Cody 7.31 (L) 7.32 - [facility] 7.42 [facility] pCO2 Cody 47 41 - 51 [facility] LABORATORY pO2 [place] 53 (H) 25 - 40 [facility] LABORATORY HCO3 Cody 22.7 mmol/L [facility] LABORATORY BE Cody -3.7 mmol/L [facility] LABORATORY Hgb Blood Gas 10.2 (L) 13.7 - [facility] 16.5 gm/dL [facility] O2HB [place] 81.0 % [facility] LABORATORY COHB Cody 1.0 % [facility] LABORATORY Comment: Nonsmokers: 0.5-1.5% COHB Smokers: Variable, but usually less than 10% Toxic: 20-30% COHB Lethal: Greater than 60% COHB METHB Cody 0.3 <=1.5 % [facility] Na Whole Blood 132 (L) 135 - 145 mmol/L [facility] K Whole Blood 5.3 (H) 3.5 - 5.0 mmol/L [facility] Comment: Please note: Patients with WBC >100,000 may have falsely elevated Potassium levels. Contact the Clinical Chemistry L aboratory if there are any questions. ICa Whole Blood 0.90 (Critical) 1.15 - 1.33 mmol/L [facility] LABORATORY Comment: Noted by electrical and instrument technician. Note: ??Total bilirubin higher than 20 m g/dL may lead to falsely low ionized calcium. CL Whole Blood 100 98 - 107 mmol/L [facility] Gluc Whole Bld 231 (H) 65 - 199 mg/dL [facility] Comment: Diabetes: >=200 mg/dL plus symp toms Lactate WB 1.1 0.5 - 2.2 mmol/L [facility] BGas Source Venous [facility] LABOR[facility]ORY Specimen Anatomical Collection Method Collection Time Receive d Time (Source) Location / / Volume Laterality Blood specimen 07/07/2017 4:06 PM 017 4:06 (specimen) EST PM EST Daphne Shahid MD CHEMISTRY ORDERABLES Performing Organization Address City/State/[place] [address] (ABNORMAL) BLOOD GAS 2 ARTERIAL (07/07/2017 4:05 PM EST) Analysis Performed At Patho logist Time Signature pH Art 7.36 7.35 - [facility] 7.45 [facility] pCO2 Art 40 35 - 45 [facility] LABORATORY pO2 Art 282 (H) 85 - 104 [facility] LABORATORY HCO3 Art 22.1 20.0 - [facility] 26.0 [facility] mmol/L [facility] LABORATORY BE Art -3.4 (L) -3.0 - 3.0 [facility] mmol/L [facility] Hgb Blood Gas 10.2 (L) 13.7 - [facility] 16.5 gm/dL [facility] O2HB Art 98.4 (H) 94.0 - [facility] 97.0 % [facility] COHB Art 0.3 % [facility] LABORATORY Comment: Nonsmokers: 0.5-1.5% COHB Smokers: Variable, but usually less than 10% Toxic: 20-30% COHB Lethal: Greater than 60% COHB METHB Art 0.3 <=1.5 % [facility] Na Whole Blood 131 (L) 135 - 145 mmol/L [facility] K Whole Blood 5.4 (H) 3.5 - 5.0 mmol/L [facility] Comment: Please note: Patients with WBC >100,000 may have falsely elevated Potassium levels. Contact the Clinical Chemistry L aboratory if there are any questions. ICa Whole Blood 0.86 (Critical) 1.15 - 1.33 mmol/L [facility] LABORATORY Comment: Noted by electrical and instrument technician. Note: ??Total bilirubin higher than 20 m g/dL may lead to falsely low ionized calcium. CL Whole Blood 101 98 - 107 mmol/L [facility] Gluc Whole Bld 260 (H) 65 - 199 mg/dL [facility] Comment: Diabetes: >=200 mg/dL plus symp toms. Lactate WB 1.4 0.5 - 2.2 mmol/L [facility] Specimen Anatomical Collection Method Collection Time Receive d Time (Source) Location / / Volume Laterality Blood specimen 07/07/2017 4:05 PM 017 4:05 (specimen) EST PM EST Daphne Shahid MD CHEMISTRY ORDERABLES Performing Organization Address City/State/[place] [address] (ABNORMAL) BLOOD GAS 2 ARTERIAL (07/07/2017 2:29 PM EST) Analysis Performed At Patho logist Time Signature pH Art 7.43 7.35 - [facility] 7.45 [facility] pCO2 Art 36 35 - 45 [facility] mmHg [facility] pO2 Art 221 (H) 85 - 104 [facility] mmHg [facility] HCO3 Art 23.2 20.0 - [facility] 26.0 [facility] mmol/L [facility] LABORAT[facility] BE Art -1.2 -3.0 - 3.0 [facility] mmol/L [facility] Hgb Blood Gas 13.9 13.7 - [facility] 16.5 gm/dL [facility] O2HB Art 97.8 (H) 94.0 - [facility] 97.0 % [facility] COHB Art 1.1 % [facility] LABORATORY Comment: Nonsmokers: 0.5-1.5% COHB Smokers: Variable, but usually less than 10% Toxic: 20-30% COHB Lethal: Greater than 60% COHB METHB Art 0.3 <=1.5 % [facility] Na Whole Blood 139 135 - 145 mmol/L [facility] LABORATORY K Whole Blood 4.0 3.5 - 5.0 mmol/L [facility] LABORATORY Comment: Please note: Patients with WBC >100,000 may have falsely elevated Potassium levels. Contact the Clinical Chemistry L aboratory if there are any questions. ICa Whole Blood 1.11 (L) 1.15 - 1.33 mmol/L [facility] LABORATORY Comment: Note: ??Total bilirubin higher than 20 m g/dL may lead to falsely low ionized calcium. CL Whole Blood 104 98 - 107 mmol/L [facility] LABORATORY Gluc Whole Bld 184 65 - 199 mg/dL [facility] Comment: Diabetes: >=200 mg/dL plus symp toms. Lactate WB 1.5 0.5 - 2.2 mmol/L [facility] Specimen Anatomical Collection Method Collection Time Receive d Time (Source) Location / / Volume Laterality Blood specimen 07/07/2017 2:29 PM 017 2:29 (specimen) EST PM EST Daphne Shahid MD CHEMISTRY ORDERABLES Performing Organization Address City/[facility] [place] [address] Prepare Coag Factors (Non-Hemophilia) (07/07/2017 1:25 PM EST) P athologist Signature Dispensed? Yes [facility] LABORATORY Specimen Anatomical Collection Method Collection Time Receive d Time (Source) Location / / Volume Laterality Blood specimen 07/07/2017 1:25 PM 017 1:21 (specimen) EST PM EST Daphne Shahid MD BLOOD BANK ORDERABLES Performing Organization Address City/[facility]/[place] [address] Prepare RBC (07/07/2017 1:10 PM EST) P athologist Signature Dispensed? Yes [facility] LABORATORY Specimen Anatomical Collection Method Collection Time Receive d Time (Source) Location / / Volume Laterality Blood specimen 07/07/2017 1:10 PM 017 1:05 (specimen) EST PM EST Daphne Shahid MD BLOOD BANK ORDERABLES Performing Organization Address City/[facility]/ZIP Code Phon e Number [address] POCT Glucose (07/07/2017 11:56 AM EST) P athologist Signature POC Glucose 188 65 - 199 [place] [facility] mg/dL [facility] Comment: Supplemental ranges: <140 mg/dL before meals <180 mg/dL all other times of the day Specimen Anatomical Collection Method Collection Time Receive d Time (Source) Location / / Volume Laterality Blood specimen 07/07/2017 11:56 7 (specimen) AM EST 11:56 AM EST Daphne Shahid MD POINT OF CARE TEST ORDERABLE S Performing Organization Address City/[facility]/ZIP Code Phon e Number [address] POCT Glucose (07/07/2017 11:05 AM EST) P athologist Signature POC Glucose 168 65 - 199 [facility] Comment: Supplemental ranges: <140 mg/dL before meals <180 mg/dL all other times of the day Specimen Anatomical Collection Method Collection Time Receive d Time (Source) Location / / Volume Laterality Blood specimen 07/07/2017 11:05 7 (specimen) AM EST 11:05 AM EST Daphne Shahid MD POINT OF CARE TEST ORDERABLE S Performing Organization Address City/State/ZIP Code Phon e Number [address] POCT Glucose (07/07/2017 10:02 AM EST) P athologist Signature POC Glucose 191 65 - 199 [facility]dL [facility] Comment: Supplemental ranges: <140 mg/dL before meals <180 mg/dL all other times of the day Specimen Anatomical Collection Method Collection Time Receive d Time (Source) Location / / Volume Laterality Blood specimen 07/07/2017 10:02 7 (specimen) AM EST 10:02 AM EST Daphne Shahid MD POINT OF CARE TEST ORDERABLE S Performing Organization Address City/[facility]/ZIP Code Phon e Number [address] POCT Glucose (07/07/2017 7:53 AM EST) P athologist Signature POC Glucose 178 65 - 199 [place] [facility] mg/dL [facility] Comment: Supplemental ranges: <140 mg/dL before meals <180 mg/dL all other times of the day Specimen Anatomical Collection Method Collection Time Receive d Time (Source) Location / / Volume Laterality Blood specimen 07/07/2017 7:53 AM 017 7:53 (specimen) EST AM EST Daphne Shahid MD POINT OF CARE TEST ORDERABLE S Performing Organization Address City/[facility]/ZIP Code Phon e Number [address] POCT Glucose (07/07/2017 7:03 AM EST) P athologist Signature POC Glucose 188 65 - 199 [place] [facility] mg/dL [facility] Comment: Supplemental ranges: <140 mg/dL before meals <180 mg/dL all other times of the day Specimen Anatomical Collection Method Collection Time Receive d Time (Source) Location / / Volume Laterality Blood specimen 07/07/2017 7:03 AM 017 7:03 (specimen) EST AM EST Daphne Shahid MD POINT OF CARE TEST ORDERABLE S Performing Organization Address City/[facility]/[place] [address] (ABNORMAL) POCT Glucose (07/07/2017 6:17 AM EST) P athologist Signature POC Glucose 207 (H) 65 - 199 [facility] SU mg/dL [facility] Comment: Supplemental ranges: <140 mg/dL before meals <180 mg/dL all other times of the day Specimen Anatomical Collection Method Collection Time Receive d Time (Source) Location / / Volume Laterality Blood specimen 07/07/2017 6:17 AM 017 6:17 (specimen) EST AM EST Daphne Shahid MD POINT OF CARE TEST ORDERABLE S Performing Organization Address City/State/ZIP Code Phon e Number [address] Differential, Automated (07/07/2017 5:15 AM EST) P athologist Signature Neutrophils % 69.7 % [facility] LABORATORY Neutr Abs (ANC) 5.32 1.70 - [facility] 6.10 [facility] x10(3)/[facility] LABORATORY Lymphocytes % 16.3 % [facility] LABORATORY Lymphocytes Abs 1.2 0.9 - 3.2 [facility] x10(3)/[facility] LABORATORY Monocytes % 10.5 % [facility] LABORATORY Monocyte Abs 0.8 0.3 - 0.9 [facility] x10(3)/[facility] LABORATORY Eosinophils % 2.5 % [facility] LABORATORY Eosinophils Abs 0.2 0.0 - 0.4 [facility] x10(3)[facility] LABORATORY Basophils % 0.7 % [facility] LABORATORY Basophils Abs 0.0 0.0 - 0.1 [facility] x10(3)/[facility] LABORATORY Immature Gran % 0.30 % [facility] LABORATORY Comment: Immature granulocytes(IG's)percentage an d absolute count will include metamyelocytes, myelocytes, and promyelo cytes. Blood smears from CBCs yielding IG's will be scanned manually for concor dance. If this scan disagrees with the automated IG or if promyelocytes are not ed, a manual differential will be performed. Melisa Gran Abs 0.02 0.00 - 0.04 x10(3)/[facility] Y [facility] LABORATORY Specimen Anatomical Collection Method Collection Time Receive d Time (Source) Location / / Volume Laterality Blood specimen 07/07/2017 5:15 AM 017 5:34 (specimen) EST AM EST Resulting Agency Comment Spec In Lab Daphne Shahid MD HEMATOLOGY ORDERABLES Performing Organization Address City/State/ZIP Code Phon e Number [address] (ABNORMAL) Hemogram (07/07/2017 5:15 AM EST) Analysis Performed At Patho logist Time Signature WBC 7.6 4.0 - 9.5 [facility] x10(3)/[facility] LABORATORY RBC 4.82 4.58 - [place] [facility] 5.54 [facility] x10(6)/[facility] LABORATORY Hemoglobin 14.4 13.7 - [facility] 16.5 gm/dL [facility] LABORATORY Hematocrit 42.1 40.5 - [facility] 48.5 % [facility] LABORATORY MCV 87.3 82.9 - [facility] 93.1 [facility] LABORATORY MCH 29.9 27.5 - [facility] 32.1 pg [facility] LABORATORY MCHC 34.2 32.0 - [facility] 35.7 gm/dL [facility] LABORATORY Platelets 188 145 - 357 [facility] x10(3)/[facility] LABORATORY RDWSD 45.1 (H) 36.0 - [facility] 45.0 [facility] LABORATORY RDWCV 14.3 (H) 11.4 - [facility] 13.8 % [facility] LABORATORY MPV 9.4 7.6 - 12.9 [facility] LABORATORY nRBC % Auto 0.0 % [facility] LABORATORY nRBC Abs Auto 0.000 0.000 - [facility] 0.000 [facility] x10(3)/[facility] LABORATORY Specimen Anatomical Collection Method Collection Time Receive d Time (Source) Location / / Volume Laterality Blood specimen 07/07/2017 5:15 AM 017 5:34 (specimen) EST AM EST Resulting Agency Comment Spec In Lab Daphne Shahid MD HEMATOLOGY ORDERABLES Performing Organization Address City/State/[place] [address] (ABNORMAL) APTT (07/07/2017 5:15 AM EST) P athologist Signature PTT 69 (H) 25 - 35 sec [facility] LABORATORY Comment: The recommended therapeutic range for fu ll dose, unfractionated heparin at [facility] is 80 ? 114 seconds. [...] Shahid MD HEMATOLOGY ORDERABLES Performing Organization Address City/[facility]/ZIP Code Phon e Number [address] Magnesium (07/07/2017 5:15 AM EST) athologist Signature Magnesium 0.94 0.69 - 1.07 [facility] mmol/L [facility] LABORATORY Specimen Anatomical Collection Method Collection Time Receive d Time (Source) Location / / Volume Laterality Blood specimen 07/07/2017 5:15 AM 017 5:34 (specimen) EST AM EST Resulting Agency Comment Spec In Lab Daphne Shahid MD CHEMISTRY ORDERABLES Performing Organization Address City/[facility]/[place] [address] (ABNORMAL) Basic Metabolic Panel (non-fasting) (07/07/2017 5:15 AM EST) athologist Signature Glucose Lvl 203 (H) 65 - 199 [facility] mg/dL [facility] LABORATORY Comment: Diabetes: >=200 mg/dL plus symp toms BUN 15 10 - 20 mg/dL [facility] LABORATORY Creatinine 1.09 0.80 - 1.50 mg/dL [facility] LABORATORY Sodium 142 135 - 145 mmol/L [facility] LABORATORY Potassium 4.4 3.5 - 5.0 mmol/L [facility] LABORATORY Comment: Please note: ??Patients with WBC >100,00 0 may have falsely elevated Potassium levels. ??For accurate Potassium quantif ication in these patients send serum separator tube (gold top) for subsequent determinations. ??Contact the Clinical Chemistry Laboratory if there are any qu estions. Chloride 102 98 - 107 mmol/L [facility] LABORATORY CO2 26 22 - 31 mmol/L [facility] LABORATORY Anion Gap 14 5 - 15 mmol/L [facility] LABORATORY Calcium 8.6 8.5 - 10.5 mg/dL [facility] LABORATORY Estimated GFR >60 >=60 [facility] LABORATORY Comment: The reported eGFR should be multiplied b y 1.2 for patients. The MDRD is not an appropriate measure o f renal function for patients with body mass extremes or in patients with acute kidney failure. http://IntheGlo/DHnkdep http://IntheGlo/DHMCnkf Specimen Anatomical Collection Method Collection Time Receive d Time (Source) Location / / Volume Laterality Blood specimen 07/07/2017 5:15 AM 017 5:34 (specimen) EST AM EST Resulting Agency Comment Spec In Lab Daphne Shahid MD CHEMISTRY ORDERABLES Performing Organization Address City/State/ZIP Code Phon e Number [place] [id number] (ABNORMAL) Cardiac Enzymes (LEB/CGP) (07/07/2017 5:15 AM EST) P athologist Signature Troponin-T 2.07 (H) 0.00 - [facility] 0.00 ng/mL [facility] LABORATORY Comment: The 99th percentile for Troponin T is le ss than 0.01 ng/mL, any detectable cTnT concentration using this assay should be considered elevated. According to the third universal definit ion of myocardial infarction the following criteria with a clinical prese ntation consistent with acute myocardial ischemia meets the diagnosis for a myocardial infarction (AR). Detection of a rise and/or fall of [...] additional sample may be indicated. Reference: Third [place] Definition of Myocardial Infarction. Journal of the [place] [employer] 2012;60:1581-98 CK, Total 88 0 - 200 unit/L [facility] LABORATORY Specimen Anatomical Collection Method Collection Time Receive d Time (Source) Location / / Volume Laterality Blood specimen 07/07/2017 5:15 AM 017 5:34 (specimen) EST AM EST Resulting Agency Comment Spec In Lab Daphne Shahid MD CHEMISTRY ORDERABLES Performing Organization Address City/[facility]/ZIP Code Phon e Number [address] POCT Glucose (07/07/2017 5:01 AM EST) P athologist Signature POC Glucose 182 65 - 199 [facility] mg/dL [facility] LABORATORY Comment: Supplemental ranges: <140 mg/dL before meals <180 mg/dL all other times of the day Specimen Anatomical Collection Method Collection Time Receive d Time (Source) Location / / Volume Laterality Blood specimen 07/07/2017 5:01 AM 017 5:01 (specimen) EST AM EST Daphne Shahid MD POINT OF CARE TEST ORDERABLE S Performing Organization Address City/[facility]/ZIP Code Phon e Number [address] POCT Glucose (07/07/2017 4:08 AM EST) P athologist Signature POC Glucose 199 65 - 199 [facility] mg/dL [facility] LABORATORY Comment: Supplemental ranges: <140 mg/dL before meals <180 mg/dL all other times of the day Specimen Anatomical Collection Method Collection Time Receive d Time (Source) Location / / Volume Laterality Blood specimen 07/07/2017 4:08 AM 017 4:08 (specimen) EST AM EST Daphne Shahid MD POINT OF CARE TEST ORDERABLE S Performing Organization Address City/[facility]/ZIP Code Phon e Number [address] POCT Glucose (07/07/2017 3:03 AM EST) athologist Signature POC Glucose 188 65 - 199 [place] mg/dL [facility] LABORATORY Comment: Supplemental ranges: <140 mg/dL before meals <180 mg/dL all other times of the day Specimen Anatomical Collection Method Collection Time Receive d Time (Source) Location / / Volume Laterality Blood specimen 07/07/2017 3:03 AM 017 3:03 (specimen) EST AM EST Daphne Shahid MD POINT OF CARE TEST ORDERABLE S Performing Organization Address City/State/[place] [address] (ABNORMAL) POCT Glucose (07/07/2017 2:08 AM EST) athologist Signature POC Glucose 200 (H) 65 - 199 [facility] mg/dL [facility] LABORATORY Comment: Supplemental ranges: <140 mg/dL before meals <180 mg/dL all other times of the day Specimen Anatomical Collection Method Collection Time Receive d Time (Source) Location / / Volume Laterality Blood specimen 07/07/2017 2:08 AM 017 2:08 (specimen) EST AM EST Daphne Shahid MD POINT OF CARE TEST ORDERABLE S Performing Organization Address City/State/[place] [address] (ABNORMAL) POCT Glucose (07/07/2017 1:31 AM EST) athologist Signature POC Glucose 209 (H) 65 - 199 [place] mg/dL [facility] LABORATORY Comment: Supplemental ranges: <140 mg/dL before meals <180 mg/dL all other times of the day Specimen Anatomical Collection Method Collection Time Receive d Time (Source) Location / / Volume Laterality Blood specimen 07/07/2017 1:31 AM 017 1:31 (specimen) EST AM EST Daphne Shahid MD POINT OF CARE TEST ORDERABLE S Performing Organization Address City/State/[place] [address] XR Chest PA or [...] Signature POC Glucose 161 65 - 199 [facility] mg/dL [facility] LABORATORY Comment: Supplemental ranges: <140 mg/dL before meals <180 mg/dL all other times of the day Specimen Anatomical Collection Method Collection Time Receive d Time (Source) Location / / Volume Laterality Blood specimen 07/07/2017 12:07 7 (specimen) AM EST 12:07 AM EST Daphne Shahid MD POINT OF CARE TEST ORDERABLE S Performing Organization Address City/State/[place] [address] (ABNORMAL) APTT (07/07/2017 12:00 AM EST) athologist Signature PTT 103 (H) 25 - 35 sec [facility] LABORATORY Comment: The recommended therapeutic range for fu ll dose, unfractionated heparin at [facility] is 80 ? 114 seconds. [...] Shahid MD HEMATOLOGY ORDERABLES Performing Organization Address City/[facility]/ZIP Code Phon e Number [address] POCT Glucose (07/06/2017 9:55 PM EST) athologist Signature POC Glucose 109 65 - 199 [facility] mg/dL [facility] LABORATORY Comment: Supplemental ranges: <140 mg/dL before meals <180 mg/dL all other times of the day Specimen Anatomical Collection Method Collection Time Receive d Time (Source) Location / / Volume Laterality Blood specimen 07/06/2017 9:55 PM 017 9:55 (specimen) EST PM EST Daphne Shahid MD POINT OF CARE TEST ORDERABLE S Performing Organization Address City/[facility]/ZIP Code Phon e Number [address] POCT Glucose (07/06/2017 9:04 PM EST) athologist Signature POC Glucose 120 65 - 199 [facility] mg/dL [facility] LABORATORY Comment: Supplemental ranges: <140 mg/dL before meals <180 mg/dL all other times of the day Specimen Anatomical Collection Method Collection Time Receive d Time (Source) Location / / Volume Laterality Blood specimen 07/06/2017 9:04 PM 017 9:04 (specimen) EST PM EST Daphne Shahid MD POINT OF CARE TEST ORDERABLE S Performing Organization Address City/[facility]/ZIP Code Phon [place] [address] POCT Glucose (07/06/2017 7:45 PM EST) athologist Signature POC Glucose 158 65 - 199 [facility] mg/dL [facility] LABORATORY Comment: Supplemental ranges: <140 mg/dL before meals <180 mg/dL all other times of the day Specimen Anatomical Collection Method Collection Time Receive d Time (Source) Location / / Volume Laterality Blood specimen 07/06/2017 7:45 PM 017 7:45 (specimen) EST PM EST Daphne Shahid MD POINT OF CARE TEST ORDERABLE S Performing Organization Address City/[facility]/[place] [address] Potassium (07/06/2017 7:40 PM EST) athologist [facility] Potassium 3.9 3.5 - 5.0 [facility] mmol/L [facility] LABORATORY Comment: Please note: ??Patients with [...] Organization Address City/State/[place] [address] (ABNORMAL) Cardiac Enzymes (LEB/CGP) (07/06/2017 7:40 PM EST) athologist Signature Troponin-T 2.27 (H) 0.00 - [facility] 0.00 ng/mL [facility] LABORATORY Comment: The 99th percentile for Troponin T is le ss than 0.01 ng/mL, any detectable cTnT concentration using this assay should be considered elevated. According to the third universal definit ion of myocardial infarction the following criteria with a clinical prese ntation consistent with acute myocardial ischemia meets the diagnosis for a myocardial infarction (AR). Detection of a rise and/or fall of [...] additional sample may be indicated. Reference: Third [place] Definition of Myocardial Infarction. Journal of the [place] [employer] 2012;60:1581-98 CK, Total 93 0 - 200 unit/L [facility] LABORATORY Specimen Anatomical Collection Method Collection Time Receive d Time (Source) Location / / Volume Laterality Blood specimen 07/06/2017 7:40 PM 017 7:52 (specimen) EST PM EST Resulting Agency Comment Spec In Lab Daphne Shahid MD CHEMISTRY ORDERABLES Performing Organization Address City/State/[place] [address] (ABNORMAL) POCT Glucose (07/06/2017 7:13 PM EST) P athologist Signature POC Glucose 200 (H) 65 - 199 [facility] mg/dL [facility] LABORATORY Comment: Supplemental ranges: <140 mg/dL before meals <180 mg/dL all other times of the day Specimen Anatomical Collection Method Collection Time Receive d Time (Source) Location / / Volume Laterality Blood specimen 07/06/2017 7:13 PM 017 7:13 (specimen) EST PM EST Daphne Shahid MD POINT OF CARE TEST ORDERABLE S Performing Organization Address City/State/[place] [address] (ABNORMAL) APTT (07/06/2017 6:15 PM EST) athologist Signature PTT 94 (H) 25 - 35 sec [facility] LABORATORY Comment: The recommended therapeutic range for fu ll dose, unfractionated heparin at [facility] is 80 ? 114 seconds. [...] Shahid MD HEMATOLOGY ORDERABLES Performing Organization Address City/[facility]/ZIP Code Phon e Number [address] (ABNORMAL) POCT Glucose (07/06/2017 6:03 PM EST) athologist Signature POC Glucose 236 (H) 65 - 199 [facility]/dL [facility] LABORATORY Comment: Supplemental ranges: <140 mg/dL before meals <180 mg/dL all other times of the day Specimen Anatomical Collection Method Collection Time Receive d Time (Source) Location / / Volume Laterality Blood specimen 07/06/2017 6:03 PM 017 6:03 (specimen) EST PM EST Daphne Shahid MD POINT OF CARE TEST ORDERABLE S Performing Organization Address City/[facility]/[place] [address] (ABNORMAL) POCT Glucose (07/06/2017 5:01 PM EST) athologist Signature POC Glucose 235 (H) 65 - 199 [facility] mg/dL [facility] LABORATORY Comment: Supplemental ranges: <140 mg/dL before meals <180 mg/dL all other times of the day Specimen Anatomical Collection Method Collection Time Receive d Time (Source) Location / / Volume Laterality Blood specimen 07/06/2017 5:01 PM 017 5:01 (specimen) EST PM EST Daphne Shahid MD POINT OF CARE TEST ORDERABLE S Performing Organization Address City/[facility]/[place] [address] (ABNORMAL) POCT Glucose (07/06/2017 4:06 PM EST) athologist Signature POC Glucose 202 (H) 65 - 199 [facility] mg/dL [facility] LABORATORY Comment: Supplemental ranges: <140 mg/dL before meals <180 mg/dL all other times of the day Specimen Anatomical Collection Method Collection Time Receive d Time (Source) Location / / Volume Laterality Blood specimen 07/06/2017 4:06 PM 017 4:06 (specimen) EST PM EST Daphne Shahid MD POINT OF CARE TEST ORDERABLE S Performing Organization Address City/State/[place] [address] POCT Glucose (07/06/2017 2:59 PM EST) athologist Signature POC Glucose 178 65 - 199 [facility] mg/dL [facility] LABORATORY Comment: Supplemental ranges: <140 mg/dL before meals <180 mg/dL all other times of the day Specimen Anatomical Collection Method Collection Time Receive d Time (Source) Location / / Volume Laterality Blood specimen 07/06/2017 2:59 PM 017 2:59 (specimen) EST PM EST Daphne Shahid MD POINT OF CARE TEST ORDERABLE S Performing Organization Address City/State/ZIP [place] [address] (ABNORMAL) Cardiac Enzymes (LEB/CGP) (07/06/2017 2:10 PM EST) athologist Signature Troponin-T 2.34 (H) 0.00 - [facility] ng/mL [facility] LABORATORY Comment: The 99th percentile for Troponin T is le ss than 0.01 ng/mL, any detectable cTnT concentration using this assay should be considered elevated. According to the third universal definit ion of myocardial infarction the following criteria with a clinical prese ntation consistent with acute myocardial ischemia meets the diagnosis for a myocardial infarction (AR). Detection of a rise and/or fall of [...] additional sample may be indicated. Reference: Third [place] Definition of Myocardial Infarction. Journal of the [place] [employer] 2012;60:1581-98 CK, Total 101 0 - 200 unit/L [facility] LABORATORY Specimen Anatomical Collection Method Collection Time Receive d Time (Source) Location / / Volume Laterality Blood specimen 07/06/2017 2:10 PM 017 2:26 (specimen) EST PM EST Resulting Agency Comment Spec In Lab Daphne Shahid MD CHEMISTRY ORDERABLES Performing Organization Address City/[facility]/ZIP Code Phon e Number [address] POCT Glucose (07/06/2017 2:08 PM EST) athologist Signature POC Glucose 192 65 - 199 [facility] mg/dL [facility] LABORATORY Comment: Supplemental ranges: <140 mg/dL before meals <180 mg/dL all other times of the day Specimen Anatomical Collection Method Collection Time Receive d Time (Source) Location / / Volume Laterality Blood specimen 07/06/2017 2:08 PM 017 2:08 (specimen) EST PM EST Daphne Shahid MD POINT OF CARE TEST ORDERABLE S Performing Organization Address City/[facility]/ZIP [facility] Phon e Number [address] POCT Glucose (07/06/2017 1:04 PM EST) athologist Signature POC Glucose 162 65 - 199 [facility] mg/dL [facility] LABORATORY Comment: Supplemental ranges: <140 mg/dL before meals <180 mg/dL all other times of the day Specimen Anatomical Collection Method Collection Time Receive d Time (Source) Location / / Volume Laterality Blood specimen 07/06/2017 1:04 PM 017 1:04 (specimen) EST PM EST Daphne Shahid MD POINT OF CARE TEST ORDERABLE S Performing Organization Address City/[facility]/ZIP Code Phon e Number [address] POCT Glucose (07/06/2017 12:05 PM EST) P athologist Signature POC Glucose 196 65 - 199 [facility] mg/dL [facility] LABORATORY Comment: Supplemental ranges: <140 mg/dL before meals <180 mg/dL all other times of the day Specimen Anatomical Collection Method Collection Time Receive d Time (Source) Location / / Volume Laterality Blood specimen 07/06/2017 12:05 7 (specimen) PM EST 12:05 PM EST Daphne Shahid MD POINT OF CARE TEST ORDERABLE S Performing Organization Address City/[facility]/[place] [address] EKG 12 Lead (07/06/2017 12:00 PM EST) Component Value Ref Range Test Analysis Performed Pathologis t Method Time At Signature Ventricular rate 91 BPM MUSE SYSTEM Atrial Rate 91 BPM MUSE SYSTEM P-R Interval 140 ms MUSE SYSTEM QRS Duration 94 ms MUSE SYSTEM Q-T Interval 394 ms MUSE SYSTEM QTC Calculated 484 ms MUSE SYSTEM (Bezet) Calculated P [place] 36 degrees MUSE SYSTEM Calculated R [place] -19 degrees MUSE SYSTEM Calculated T [place] 104 degrees MUSE SYSTEM INTERPRETATION Normal sinus rhythm MUSE SYSTEM 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) ST & T wave abnormality, consider lateral ischemia Abnormal ECG When compared with ECG of 05-JUL-2017 20:39, No significant change was found Confirmed by MD Verma Gregory A. ([id number]) on 07/06/2017 5:07:33 PM Specimen Anatomical Collection Method Collection Time Receive d Time (Source) Location / / Volume Laterality 07/06/2017 12:00 07/06/2017 5:07 PM EST PM EST Daphne Shahid MD ECG ORDERABLES Performing Organization Address City/State/ZIP Code Phon e Number MUSE SYSTEM ABORH Recheck Status (07/06/2017 12:00 PM EST) [facility] Method Time Signature ABORH Type Completed [facility] LABORATORY Specimen Anatomical Collection Method Collection Time Receive d Time (Source) Location / / Volume Laterality Blood specimen 07/06/2017 12:00 7 (specimen) PM EST 12:24 PM EST Resulting Agency Comment Spec In Lab Daphne Shahid MD BLOOD BANK ORDERABLES Performing Organization Address City/State/ZIP Code Phon e Number [address] Antibody screen (07/06/2017 12:00 PM EST) [facility] Method [place] Signature Ab Screen Negative [facility] LABORATORY Expires at 07/09/2017 [facility] [id number] on: [facility] LABORATORY Specimen Anatomical Collection Method Collection Time Receive d Time (Source) Location / / Volume Laterality Blood specimen 07/06/2017 12:00 7 (specimen) PM EST 12:24 PM EST Resulting Agency Comment Spec In Lab Daphne Shahid MD BLOOD BANK ORDERABLES Performing Organization Address City/State/ZIP Code Phon e Number [address] ABO/Rh Typing (07/06/2017 12:00 PM EST) P athologist Signature ABORh Type O Pos [place] [facility] LABORATORY Specimen Anatomical Collection Method Collection Time Receive d Time (Source) Location / / Volume Laterality Blood specimen 07/06/2017 12:00 7 (specimen) PM EST 12:24 PM EST Resulting Agency Comment Spec In Lab Daphne Shahid MD BLOOD BANK ORDERABLES Performing Organization Address City/State/[place] [address] Prothrombin Time (07/06/2017 11:24 AM EST) P athologist Signature PT 13.3 11.8 - 14.0 [facility] LABORATORY INR 1.0 0.9 - 1.1 [facility] Shahid MD HEMATOLOGY ORDERABLES Performing Organization Address City/[facility]/ZIP Code Phon e Number [address] (ABNORMAL) APTT (07/06/2017 11:24 AM EST) P athologist Signature PTT 52 (H) 25 - 35 sec [facility] LABORATORY Comment: The recommended therapeutic range for fu ll dose, unfractionated heparin at [facility] is 80 ? 114 seconds. [...] Shahid MD HEMATOLOGY ORDERABLES Performing Organization Address City/[facility]/[place] [address] POCT Glucose (07/06/2017 11:02 AM EST) P athologist Signature POC Glucose 187 65 - 199 [facility] mg/dL [facility] LABORATORY Comment: Supplemental ranges: <140 mg/dL before meals <180 mg/dL all other times of the day Specimen Anatomical Collection Method Collection Time Receive d Time (Source) Location / / Volume Laterality Blood specimen 07/06/2017 11:02 7 (specimen) AM EST 11:02 AM EST Daphne Shahid MD POINT OF CARE TEST ORDERABLE S Performing Organization Address City/State/ZIP Code Phon e Number [address] POCT Glucose (07/06/2017 10:18 AM EST) athologist Signature POC Glucose 193 65 - 199 [place] mg/dL [facility] LABORATORY Comment: Supplemental ranges: <140 mg/dL before meals <180 mg/dL all other times of the day Specimen Anatomical Collection Method Collection Time Receive d Time (Source) Location / / Volume Laterality Blood specimen 07/06/2017 10:18 7 (specimen) AM EST 10:18 AM EST Daphne Shahid MD POINT OF CARE TEST ORDERABLE S Performing Organization Address City/[facility]/ZIP Code Phon e Number [address] POCT Glucose (07/06/2017 9:25 AM EST) athologist Signature POC Glucose 182 65 - 199 [facility] mg[facility]dL [facility] Comment: Supplemental ranges: <140 mg/dL before meals <180 mg/dL all other times of the day Specimen Anatomical Collection Method Collection Time Receive d Time (Source) Location / / Volume Laterality Blood specimen 07/06/2017 9:25 AM 017 9:25 (specimen) EST AM EST Daphne Shahid MD POINT OF CARE TEST ORDERABLE S Performing Organization Address City/[facility]/[place] [address] (ABNORMAL) Cardiac Enzymes (LEB/CGP) (07/06/2017 8:10 AM EST) athologist Signature Troponin-T 2.26 (H) 0.00 [facility]/mL [facility] Comment: The 99th percentile for Troponin T is le ss than 0.01 ng/mL, any detectable cTnT concentration using this assay should be considered elevated. According to the third universal definit ion of myocardial infarction the following criteria with a clinical prese ntation consistent with acute myocardial ischemia meets the diagnosis for a myocardial infarction (AR). Detection of a rise and/or fall of [...] additional sample may be indicated. Reference: Third Orlando Definition of Myocardial Infarction. Journal of the [employer] 2012;60:1581-98 CK, Total 124 0 - 200 unit/L [facility] LABORATORY Specimen Anatomical Collection Method Collection Time Receive d Time (Source) Location / / Volume Laterality Blood specimen 07/06/2017 8:10 AM 017 8:23 (specimen) EST AM EST Resulting Agency Comment Spec In Lab Daphne Shahid MD CHEMISTRY ORDERABLES Performing Organization Address City/State/ZIP Code Phon e Number [address] Magnesium (07/06/2017 8:10 AM EST) P athologist Signature Magnesium 0.84 0.69 - 1.07 [facility] mmol/L [facility] LAB[facility] Specimen Anatomical Collection Method Collection Time Receive d Time (Source) Location / / Volume Laterality Blood specimen 07/06/2017 8:10 AM 017 8:21 (specimen) EST AM EST Resulting Agency Comment Spec In Lab Daphne Shahid MD CHEMISTRY ORDERABLES Performing Organization Address City/[facility]/ZIP Code Phon e Number [address] (ABNORMAL) Basic Metabolic Panel (non-fasting) (07/06/2017 8:10 AM EST) athologist Signature Glucose Lvl 199 65 - 199 [facility]dL [facility] Comment: Diabetes: >=200 mg/dL plus symp toms BUN 16 10 - 20 mg/dL [facility] LABORATORY Creatinine 1.04 0.80 - 1.50 mg/dL [facility] LABORATORY Sodium 141 135 - 145 mmol/L [facility] LABORATORY Potassium 4.5 3.5 - 5.0 mmol/L [facility] LABORATORY Comment: Please note: ??Patients with WBC >100,00 0 may have falsely elevated Potassium levels. ??For accurate Potassium quantif ication in these patients send serum separator tube (gold top) for subsequent determinations. ??Contact the Clinical Chemistry Laboratory if there are any qu estions. Chloride 101 98 - 107 mmol/L [facility] LABORATORY CO2 27 22 - 31 mmol/L [facility] Anion Gap 13 5 - 15 mmol/L [facility] LABORATORY Calcium 8.1 (L) 8.5 - 10.5 mg/dL [facility] LABORATORY Estimated GFR >60 >=60 [facility] LABORATORY Comment: The reported eGFR should be multiplied b y 1.2 for patients. The MDRD is not an appropriate measure o f renal function for patients with body mass extremes or in patients with acute kidney failure. http://IntheGlo/DHnkdep http://IntheGlo/DHMCnkf Specimen Anatomical Collection Method Collection Time Receive d Time (Source) Location / / Volume Laterality Blood specimen 07/06/2017 8:10 AM 017 8:21 (specimen) EST AM EST Resulting Agency Comment Spec In Lab Daphne Shahid MD CHEMISTRY ORDERABLES Performing Organization Address City/State/Z[place] [address] POCT Glucose (07/06/2017 7:34 AM EST) P athologist Signature POC Glucose 198 65 - 199 [facility] mg/dL [facility] LAB[facility] Comment: Supplemental ranges: <140 mg/dL before meals <180 mg/dL all other times of the day Specimen Anatomical Collection Method Collection Time Receive d Time (Source) Location / / Volume Laterality Blood specimen 07/06/2017 7:34 AM 017 7:34 (specimen) EST AM EST Daphne Shahid MD POINT OF CARE TEST ORDERABLE S Performing Organization Address City/State/ZIP Code Phon e Number [address] POCT Glucose (07/06/2017 7:03 AM EST) P athologist Signature POC Glucose 181 65 - 199 [facility] mg/dL [facility] LAB[facility] Comment: Supplemental ranges: <140 mg/dL before meals <180 mg/dL all other times of the day Specimen Anatomical Collection Method Collection Time Receive d Time (Source) Location / / Volume Laterality Blood specimen 07/06/2017 7:03 AM 017 7:03 (specimen) EST AM EST Daphne Shahid MD POINT OF CARE TEST ORDERABLE S Performing Organization Address City/State/[place] [address] XR Chest PA or [...] Signature POC Glucose 172 65 - 199 [facility] mg/dL [facility] Comment: Supplemental ranges: <140 mg/dL before meals <180 mg/dL all other times of the day Specimen Anatomical Collection Method Collection Time Receive d Time (Source) Location / / Volume Laterality Blood specimen 07/06/2017 6:21 AM 017 6:21 (specimen) EST AM EST Daphne Shahid MD POINT OF CARE TEST ORDERABLE S Performing Organization Address City/[facility]/[place] [address] POCT Glucose (07/06/2017 5:08 AM EST) athologist Signature POC Glucose 154 65 - 199 [facility] mg/dL [facility] Comment: Supplemental ranges: <140 mg/dL before meals <180 mg/dL all other times of the day Specimen Anatomical Collection Method Collection Time Receive d Time (Source) Location / / Volume Laterality Blood specimen 07/06/2017 5:08 AM 017 5:08 (specimen) EST AM EST Daphne Shahid MD POINT OF CARE TEST ORDERABLE S Performing Organization Address City/State/[place] [address] POCT Glucose (07/06/2017 4:05 AM EST) athologist Signature POC Glucose 142 65 - 199 [facility] mg/dL [facility] Comment: Supplemental ranges: <140 mg/dL before meals <180 mg/dL all other times of the day Specimen Anatomical Collection Method Collection Time Receive d Time (Source) Location / / Volume Laterality Blood specimen 07/06/2017 4:05 AM 017 4:05 (specimen) EST AM EST Daphne Shahid MD POINT OF CARE TEST ORDERABLE S Performing Organization Address City/State/ZIP Code Phon e Number [address] POCT Glucose (07/06/2017 3:00 AM EST) athologist Signature POC Glucose 116 65 - 199 [facility]/dL [facility] Comment: Supplemental ranges: <140 mg/dL before meals <180 mg/dL all other times of the day Specimen Anatomical Collection Method Collection Time Receive d Time (Source) Location / / Volume Laterality Blood specimen 07/06/2017 3:00 AM 017 3:00 (specimen) EST AM EST Daphne Shahid MD POINT OF CARE TEST ORDERABLE S Performing Organization Address City/State/ZIP Code Phon e Number [address] Potassium (07/06/2017 2:20 AM EST) athologist Signature Potassium 3.9 3.5 - 5.0 [facility] mmol/L [facility] LABOR[facility] Comment: Please note: ??Patients with [...] Shahid MD CHEMISTRY ORDERABLES Performing Organization Address City/[facility]/ZIP Code Phon e Number [place] [phone] HOSPITAL LAB[address]ORY [address] Differential, Automated (07/06/2017 2:20 AM EST) P athologist Signature Neutrophils % 72.9 % [facility] LABORATORY Neutr Abs (ANC) 5.53 1.70 - [facility] 6.10 [facility] x10(3)/[facility] LABORATORY Lymphocytes % 16.4 % [facility] LABORATORY Lymphocytes Abs 1.2 0.9 - 3.2 [facility] x10(3)/[facility] LABORATORY Monocytes % 9.4 % [facility] LABORATORY Monocyte Abs 0.7 0.3 - 0.9 [facility] x10(3)/[facility] LABORATORY Eosinophils % 0.5 % [facility] LABORATORY Eosinophils Abs 0.0 0.0 - 0.4 [facility] x10(3)/[facility] LABORATORY Basophils % 0.4 % [facility] LABORATORY Basophils Abs 0.0 0.0 - 0.1 [facility] x10(3)/[facility] LABORATORY Immature Gran % 0.40 % [facility] LABORATORY Comment: Immature granulocytes(IG's)percentage an d absolute count will include metamyelocytes, myelocytes, and promyelo cytes. Blood smears from CBCs yielding IG's will be scanned manually for concor dance. If this scan disagrees with the automated IG or if promyelocytes are not ed, a manual differential will be performed. Melisa Gran Abs 0.03 0.00 - 0.04 x10(3)/[facility] LABORATORY Specimen Anatomical Collection Method Collection Time Receive d Time (Source) Location / / Volume Laterality Blood specimen 07/06/2017 2:20 AM 017 2:33 (specimen) EST AM EST Resulting Agency Comment Spec In Lab Daphne Shahid MD HEMATOLOGY ORDERABLES Performing Organization Address City/State/ZIP Code Phon e Number [place] [phone]OS[address] LAB[address]ATORY Drive (ABNORMAL) Hemogram (07/06/2017 2:20 AM EST) Analysis Performed At Patho logist Time Signature WBC 7.6 4.0 - 9.5 [facility] x10(3)/[facility] LABORATORY RBC 4.52 (L) 4.58 - [place] 5.54 [facility] x10(6)/[facility] LABORATORY Hemoglobin 13.4 (L) 13.7 - [facility] 16.5 gm/dL [facility] Hematocrit 39.7 (L) 40.5 - [facility] 48.5 % [facility]ORY MCV 87.8 82.9 - [facility] 93.1 [facility] LABORATORY MCH 29.6 27.5 - [facility] 32.1 pg [facility]ATORY MCHC 33.8 32.0 - [facility] 35.7 gm/dL [facility] Platelets 189 145 - 357 [facility] x10(3)/[facility] RDWSD 45.6 (H) 36.0 - [facility] 45.0 [facility] LABORATORY RDWCV 14.3 (H) 11.4 - [facility] 13.8 % [facility] LABORATORY MPV 9.1 7.6 - 12.9 [facility] LABORATORY nRBC % Auto 0.0 % [facility] LABORATORY nRBC Abs Auto 0.000 0.000 - [facility] 0.000 [facility] x10(3)/[facility] LABORATORY Specimen Anatomical Collection Method Collection Time Receive d Time (Source) Location / / Volume Laterality Blood specimen 07/06/2017 2:20 AM 017 2:33 (specimen) EST AM EST Resulting Agency Comment Spec In Lab Daphne Shahid MD HEMATOLOGY ORDERABLES Performing Organization Address City/State/Z[place] [address] (ABNORMAL) APTT (07/06/2017 2:20 AM EST) P athologist Signature PTT 52 (H) 25 - 35 sec [facility] LABORATORY Comment: The recommended therapeutic range for fu ll dose, unfractionated heparin at [facility] is 80 ? 114 seconds. [...] Organization Address City/State/ZIP Code Phon e Number [address] POCT Glucose (07/06/2017 2:20 AM EST) athologist Signature POC Glucose 115 65 - 199 [facility] mg/dL [facility] Comment: Supplemental ranges: <140 mg/dL before meals <180 mg/dL all other times of the day Specimen Anatomical Collection Method Collection Time Receive d Time (Source) Location / / Volume Laterality Blood specimen 07/06/2017 2:20 AM 017 2:20 (specimen) EST AM EST Daphne Shahid MD POINT OF CARE TEST ORDERABLE S Performing Organization Address City/State/[place] [address] (ABNORMAL) Cardiac Enzymes (LEB/CGP) (07/06/2017 2:20 AM EST) athologist Signature Troponin-T 2.13 (H) 0.00 - [facility] 0.00 ng/mL [facility] Comment: The 99th percentile for Troponin T is le ss than 0.01 ng/mL, any detectable cTnT concentration using this assay should be considered elevated. According to the third universal definit ion of myocardial infarction the following criteria with a clinical prese ntation consistent with acute myocardial ischemia meets the diagnosis for a myocardial infarction (AR). Detection of a rise and/or fall of [...] additional sample may be indicated. Reference: Third [place] Definition of Myocardial Infarction. Journal of the [place] [employer] 2012;60:1581-98 CK, Total 129 0 - 200 unit/L [facility] LABORATORY Specimen Anatomical Collection Method Collection Time Receive d Time (Source) Location / / Volume Laterality Blood specimen 07/06/2017 2:20 AM 017 2:33 (specimen) EST AM EST Resulting Agency Comment Spec In Lab Daphne Shahid MD CHEMISTRY ORDERABLES Performing Organization Address City/State/[place] [address] (ABNORMAL) Hemoglobin A1c (07/06/2017 2:20 AM EST) Analysis Performed At Patho logist Time Signature Hemoglobin A1C 6.8 (H) 4.3 - 5.6 [facility] [...] Mellitus, Diabetes Care 2013; 36: Suppl. 1, S67-50 Est Avg Gluc See note mg/dL [facility] LABORATORY Comment: Estimated Average Glucose not [...] with hemoglobinopathies. Additional resources are available on e ADA website. Macario HAMMOND, Ruthann J, Deysi R, et al. ??Tr anslating the A1C assay into estimated average glucose values. ??Diabetes Care 2008:31(8):4468-2828. Specimen Anatomical Collection Method Collection Time Receive d Time (Source) Location / / Volume Laterality Blood specimen 07/06/2017 2:20 AM 017 2:34 (specimen) EST AM EST Resulting Agency Comment Spec In Lab Daphne Shahid MD CHEMISTRY ORDERABLES Performing Organization Address City/State/ZIP Code Phon e Number [place] [phone]OS[address] LAB[address]ORY Drive (ABNORMAL) Lipid Panel (07/06/2017 2:20 AM EST) [facility] Method Time Signature Chol, Total 150 <=239 [place] mg/dL [facility] LABORATORY Triglycerides 129 <=199 [place] mg/dL [facility] LAB[facility]ORY HDL 32 (L) >=40 [place] mg/dL [facility] LABORATORY LDL Cholesterol 92 <=190 [place] mg/dL [facility] LABOR[facility]ORY Chol/HDL Ratio 4.7 ratio [facility] LABORATORY Lipid See Note [place] Interpretation [facility] LABORATORY Comment: Lipid management should be guided by a p atient? s ASCVD risk, goals and preferences. ACC/AHA Guidelines recommend high intens ity statin if clinical ASCVD or LDL greater than or equal to 190 mg/dL. http://Flowboardurl.com/AYB-SOH-Wjvlirpfa Adults aged 40-75 with LDL 70-189 mg/dL should have their 10 year ASCVD risk estimated with the ACC/AHA ASCVD risk es timator http://tools.acc.org/XZDFD-Blxd-Exsyywjr r/ Statin should be discussed if risk [...] Organization Address City/State/ZIP Code Phon e Number [address] POCT Glucose (07/06/2017 1:09 AM EST) athologist Signature POC Glucose 121 65 - 199 [facility] mg/dL [facility] Comment: Supplemental ranges: <140 mg/dL before meals <180 mg/dL all other times of the day Specimen Anatomical Collection Method Collection Time Receive d Time (Source) Location / / Volume Laterality Blood specimen 07/06/2017 1:09 AM 017 1:09 (specimen) EST AM EST Daphne Shahid MD POINT OF CARE TEST ORDERABLE S Performing Organization Address City/State/[place] [address] POCT Glucose (07/06/2017 12:06 AM EST) athologist Signature POC Glucose 147 65 - 199 [facility] mg/dL [facility] Comment: Supplemental ranges: <140 mg/dL before meals <180 mg/dL all other times of the day Specimen Anatomical Collection Method Collection Time Receive d Time (Source) Location / / Volume Laterality Blood specimen 07/06/2017 12:06 7 (specimen) AM EST 12:06 AM EST Daphne Shahid MD POINT OF CARE TEST ORDERABLE S Performing Organization Address City/State/[place] [address] (ABNORMAL) POCT Glucose (07/05/2017 10:56 PM EST) P athologist Signature POC Glucose 200 (H) 65 - 199 [place] mg/dL [facility] Comment: Supplemental ranges: <140 mg/dL before meals <180 mg/dL all other times of the day Specimen Anatomical Collection Method Collection Time Receive d Time (Source) Location / / Volume Laterality Blood specimen 07/05/2017 10:56 7 (specimen) PM EST 10:56 PM EST Daphne Shahid MD POINT OF CARE TEST ORDERABLE S Performing Organization Address City/State/[place] [address] (ABNORMAL) POCT Glucose (07/05/2017 10:05 PM EST) P athologist Signature POC Glucose 225 (H) 65 - 199 [place] mg/dL [facility] Comment: Supplemental ranges: <140 mg/dL before meals <180 mg/dL all other times of the day Specimen Anatomical Collection Method Collection Time Receive d Time (Source) Location / / Volume Laterality Blood specimen 07/05/2017 10:05 7 (specimen) PM EST 10:05 PM EST Daphne Shahid MD POINT OF CARE TEST ORDERABLE S Performing Organization Address City/State/[place] [address] (ABNORMAL) POCT Glucose (07/05/2017 9:02 PM EST) P athologist Signature POC Glucose 301 (H) 65 - 199 [place] mg/dL [facility] Comment: Supplemental ranges: <140 mg/dL before meals <180 mg/dL all other times of the day Specimen Anatomical Collection Method Collection Time Receive d Time (Source) Location / / Volume Laterality Blood specimen 07/05/2017 9:02 PM 017 9:02 (specimen) EST PM EST Daphne Shahid MD POINT OF CARE TEST ORDERABLE S Performing Organization Address City/State/ZIP Code Phon e Number [place] [phone]OS[address] XR Chest PA or [...] 474 ms MUSE SYSTEM (Bezet) Calculated P [place] 50 degrees MUSE SYSTEM Calculated R [place] -28 degrees MUSE SYSTEM Calculated T [place] 90 degrees MUSE SYSTEM INTERPRETATION Sinus tachycardia [...] (ABNORMAL) Differential, Automated (07/05/2017 8:20 PM EST) [facility] gist Method Time Signature Neutrophils % 88.4 % [facility] LABORATORY Neutr Abs (ANC) 9.08 (H) 1.70 - [facility] 6.10 [facility] x10(3)/[facility] LABORATORY Lymphocytes % 7.0 % [facility] LABORATORY Lymphocytes Abs 0.7 (L) 0.9 - 3.2 [facility] x10(3)/[facility] LABORATORY Monocytes % 3.7 % [facility] LABORATORY Monocyte Abs 0.4 0.3 - 0.9 [facility] x10(3)/[facility] LABORATORY Eosinophils % 0.1 % [facility] LABORATORY Eosinophils Abs 0.0 0.0 - 0.4 [facility] x10(3)/[facility] LABORATORY Basophils % 0.2 % [facility] LABORATORY Basophils Abs 0.0 0.0 - 0.1 [facility] x10(3)/[facility] LABORATORY Immature Gran % 0.60 % [facility] LABORATORY Comment: Immature granulocytes(IG's)percentage an d absolute count will include metamyelocytes, myelocytes, and promyelo cytes. Blood smears from CBCs yielding IG's will be scanned manually for concor dance. If this scan disagrees with the automated IG or if promyelocytes are not ed, a manual differential will be performed. Melisa Gran Abs 0.06 (H) 0.00 - 0.04 x10(3)/[facility] LABORATORY Specimen Anatomical Collection Method Collection Time Receive d Time (Source) Location / / Volume Laterality Blood specimen 07/05/2017 8:20 PM 017 8:27 (specimen) EST PM EST Resulting Agency Comment Spec In Lab Daphne Shahid MD HEMATOLOGY ORDERABLES Performing Organization Address City/State/[place] [address] (ABNORMAL) Hemogram (07/05/2017 8:20 PM EST) Analysis Performed At Patho logist Time Signature WBC 10.3 (H) 4.0 - 9.5 [facility] x10(3)/[facility] LABORATORY RBC 4.64 4.58 - [facility] 5.54 [facility] x10(6)/[facility] LABORATORY Hemoglobin 14.1 13.7 - [facility] 16.5 gm/dL [facility] LABORATORY Hematocrit 40.8 40.5 - [facility] 48.5 % [facility]ATORY MCV 87.9 82.9 - [facility]1 [facility] LABORATORY MCH 30.4 27.5 - [facility] 32.1 pg [facility] LAB[facility]ATORY MCHC 34.6 32.0 - [facility] 35.7 gm/dL [facility] LABORATORY Platelets 204 145 - 357 [facility] x10(3)/[facility] LABORATORY RDWSD 46.1 (H) 36.0 - [facility] 45.0 [facility] LABORATORY RDWCV 14.5 (H) 11.4 - [facility] 13.8 % [facility] LABORATORY MPV 9.7 7.6 - 12.9 [facility] LABORATORY nRBC % Auto 0.0 % [facility] LABORATORY nRBC Abs Auto 0.000 0.000 - [facility] 0.000 [facility] x10(3)/[facility] LABORATORY Specimen Anatomical Collection Method Collection Time Receive d Time (Source) Location / / Volume Laterality Blood specimen 07/05/2017 8:20 PM 017 8:27 (specimen) EST PM EST Resulting Agency Comment Spec In Lab Daphne Shahid MD HEMATOLOGY ORDERABLES Performing Organization Address City/[facility]/ZIP Code Phon e Number [address] APTT (07/05/2017 8:20 PM EST) athologist Signature PTT 32 25 - 35 sec [facility] LABORATORY Comment: The recommended therapeutic range for fu ll dose, unfractionated heparin at [facility] is 80 ? 114 seconds. [...] Shahid MD HEMATOLOGY ORDERABLES Performing Organization Address City/[facility]/ZIP [facility] [place] [address] (ABNORMAL) Cardiac Enzymes (LEB/CGP) (07/05/2017 8:20 PM EST) athologist Signature Troponin-T 2.11 (H) 0.00 - [facility] 0.00 ng/mL [facility] LABORATORY Comment: The 99th percentile for Troponin T is le ss than 0.01 ng/mL, any detectable cTnT concentration using this assay should be considered elevated. According to the third universal definit ion of myocardial infarction the following criteria with a clinical prese ntation consistent with acute myocardial ischemia meets the diagnosis for a myocardial infarction (AR). Detection of a rise and/or fall of [...] additional sample may be indicated. Reference: Third Orlando Definition of Myocardial Infarction. Journal of the [place] College [employer] 2012;60:1581-98 CK, Total 149 0 - 200 unit/L [facility] LABORATORY Specimen Anatomical Collection Method Collection Time Receive d Time (Source) Location / / Volume Laterality Blood specimen 07/05/2017 8:20 PM 017 8:27 (specimen) EST PM EST Resulting Agency Comment Spec In Lab Daphne Shahid MD CHEMISTRY ORDERABLES Performing Organization Address City/[facility]/[place] [address] (ABNORMAL) Magnesium (07/05/2017 8:20 PM EST) P athologist Signature Magnesium 0.68 (L) 0.69 - 1.07 [facility] mmol/L [facility] LABORATORY Specimen Anatomical Collection Method Collection Time Receive d Time (Source) Location / / Volume Laterality Blood specimen 07/05/2017 8:20 PM 017 8:27 (specimen) EST PM EST Resulting Agency Comment Spec In Lab Daphne Shahid MD CHEMISTRY ORDERABLES Performing Organization Address City/[facility]/[place] [address] (ABNORMAL) Basic Metabolic Panel (non-fasting) (07/05/2017 8:20 PM EST) P athologist Signature Glucose Lvl 321 (H) 65 - 199 [facility] mg/dL [facility] LABORATORY Comment: Diabetes: >=200 mg/dL plus symp toms BUN 20 10 - 20 mg/dL [facility] LABORATORY Creatinine 1.12 0.80 - 1.50 mg/dL [facility] LABORATORY Sodium 139 135 - 145 mmol/L [facility] LABORATORY Potassium 3.8 3.5 - 5.0 mmol/L [facility] LABORATORY Comment: Please note: ??Patients with WBC >100,00 0 may have falsely elevated Potassium levels. ??For accurate Potassium quantif ication in these patients send serum separator tube (gold top) for subsequent determinations. ??Contact the Clinical Chemistry Laboratory if there are any qu estions. Chloride 98 98 - 107 mmol/L [facility] LABORATORY CO2 27 22 - 31 mmol/L [facility] LABORATORY Anion Gap 14 5 - 15 mmol/L [facility] LABORATORY Calcium 8.1 (L) 8.5 - 10.5 mg/dL [facility] LABORATORY Estimated GFR >60 >=60 [facility] LABORATORY Comment: The reported eGFR should be multiplied b y 1.2 for patients. The MDRD is not an appropriate measure o f renal function for patients with body mass extremes or in patients with acute kidney failure. http://IntheGlo/DHnkdep http://IntheGlo/DHMCnkf Specimen Anatomical Collection Method Collection Time Receive d Time (Source) Location / / Volume Laterality Blood specimen 07/05/2017 8:20 PM 017 8:27 (specimen) EST PM EST Resulting Agency Comment Spec In Lab Daphne Shahid MD CHEMISTRY ORDERABLES Performing Organization Address City/[facility]/ZIP [place] [address] (ABNORMAL) POCT Glucose (07/05/2017 7:32 PM EST) P athologist Signature POC Glucose 296 (H) 65 - 199 [facility] mg/dL [facility] LABORATORY Comment: Supplemental ranges: <140 mg/dL before meals <180 mg/dL all other times of the day Specimen Anatomical Collection Method Collection Time Receive d Time (Source) Location / / Volume Laterality Blood specimen 07/05/2017 7:32 PM 017 7:32 (specimen) EST PM EST Daphne Shahid MD POINT OF CARE TEST ORDERABLE S Performing Organization Address City/State/ZIP Code Phon e Number [facility] [place] [address] CARDIAC CATHETERIZATION (07/05/2017 6:47 PM EST) Specimen (Source) Anatomical Location Collection Method / Collectio n Time Received Time / Laterality Volume Narrative CARDIOMAC SYSTEM - 07/05/2017 7:27 PM ES T ?[facility] ? Cardiac Cathete rization/Intervention Report ? Patient Name: Natalya, Gregory ? Procedure Date: 07/05/2017 ? A #: [id number] ? Primary Physician: Jet Mckenna ? Case #: [id number] ? File Name: [id number] ? Catheterization Order Number: [id number] ? [facility] ? Final Report [place], [place] ? Patient Name: ? Gregory Natalya ?ID#: ?[id number] ? : ?1945 ? Procedure Date: ? Johnny 11, 20 17 ?Case #: ? [id number] ? Room: ? 6 ? Case Physician: ? Jet T Clarisa , M.D. ?Start: ?18:06 ? Admission: ??07/05/2017 ? [...] presented with: non -STEMI (w/i 7 days). [place] ?[employer] angina c lass was IV. 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 ? Jet Mckenna M.D. ? Electronically Signed by: Jet bunch M.D. ? Report Finalized: 07/05/2017 ??19:23 ? Report Last Ammended: 10/26/2017 ??10:29 ? Procedure Note Jet Mckenna MD - 10/26/2017Formatt ing of this note might be different from the original. [facility] Cardiac Catheterization/Intervention Re port Patient Name: Gregory Hoang Procedure Date: 07/05/2017 A #: [id number] Primary Physician: Jet Mckenna Case #: [id number] File Name: [id number] Catheterization Order Number: [id number] [facility] Final Report [place], [place] Patient Name: Gregory Hoang ID#: [id number] : 1945 Procedure Date: July 05, [...] presented with: non-STEMI ( w/i 7 days). [place] [employer] angina class was IV. 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 Jet Mckenna M.D. Electronically Signed by: Jet [...] AM EST Procedure: ?Transthoracic Echocardiogram Patient: ?NATALYA GORMANRY E ? (Age): 1945(72y) Med Rec#: ? [id number] ?Sex: ?M ? Site Loc: ? [facility] ?Ht / Wt: ??173(cm)/86(kg) Pt. Loc: ?[facility] ? BSA: ?2 Study Date: ?? 07/05/2017 ?Pt. Type: Inpatient Tape: ? Referring: Daphne Shahid ([id number]) Referring: MANDA ALCANTAR Reading: Blade Preston ([id number]) Nursing Care Attendant: Dayami Paula BA [facility] Diagnosis: *ICD-10-PCS Non-ST elevation (NSTEMI) m [...] E-wave Vmax ?0.8 ?m/sec ? MV deceleration [id number] ?msec ? MV A-wave Vmax ?0.8 ?m/sec [...] ? Mid-Inferior ?Akinetic ? Mid-Inferoseptal ?Hypokinetic ? [place]-Septal ? Akinetic ? [place]-Anterior ? Hypokinetic ? [place]-Lateral ?Hypokinetic ? [place]-Inferior ? Akinetic ? [place]-Tip ?Akinetic ? This report has been electronically sign ed by: _ Blade Preston MD ? 07/06/2017 08 :53:15 Images reviewed and interpretation verif ied [facility] Procedure Note Blade Preston MD - 07/06/2017Formatt ing of this note might be different from the original. Procedure: Transthoracic Echocardiogram Patient: NATALYA MCBRIDE(Age): [birth year]72y) Med Rec#: [id number] Sex: M Site Loc: [facility] Ht / Wt: 173(cm)/86(kg) Pt. Loc: [facility] BSA: 2 Study Date: 07/05/2017 Pt. Type: Inpatie nt Tape: Referring: Daphne Shahid ([id number]) Referring: MANDA ALCANTAR Reading: Blade Preston ([id number]) Nursing Care Attendant: Dayami Paula BA, [facility] Diagnosis: *ICD-10-PCS Non-ST elevation (NSTEMI) m [...] MV E-wave Vmax 0.8 m/sec MV deceleration bsct247 msec MV A-wave Vmax 0.8 m/sec MV [...] Hypokinetic Mid-Posterolateral Hypokinetic Mid-Inferior Akinetic Mid-Inferoseptal Hypokinetic [place]-Septal Akinetic [place]-Anterior Hypokinetic [place]-Lateral Hypokinetic [place]-Inferior Akinetic [place]-Tip Akinetic This report has been electronically sign ed by: _ Blade Preston MD 07/06/2017 08:53:15 Images reviewed and interpretation verif ied [facility] Daphne Shahid MD ECHO ORDERABLES Performing Organization Address City/State/ZIP Code Phon e Number [facility] Differential, Automated (07/05/2017 4:55 PM EST) P athologist Signature Neutrophils % 77.0 % [facility] LABORATORY Neutr Abs (ANC) 5.26 1.70 - [facility] 6.10 [facility] x10(3)/[facility] LABORATORY Lymphocytes % 13.3 % [facility] LABORATORY Lymphocytes Abs 0.9 0.9 - 3.2 [facility] x10(3)/[facility] LABORATORY Monocytes % 8.2 % [facility] LABORATORY Monocyte Abs 0.6 0.3 - 0.9 [facility] x10(3)/[facility] LABORATORY Eosinophils % 0.7 % [facility] LABORATORY Eosinophils Abs 0.0 0.0 - 0.4 [facility] x10(3)/[facility] LABORATORY Basophils % 0.4 % [facility] LABORATORY Basophils Abs 0.0 0.0 - 0.1 [facility] x10(3)/[facility] LABORATORY Immature Gran % 0.40 % [facility] LABORATORY Comment: Immature granulocytes(IG's)percentage an d absolute count will include metamyelocytes, myelocytes, and promyelo cytes. Blood smears from CBCs yielding IG's will be scanned manually for concor dance. If this scan disagrees with the automated IG or if promyelocytes are not ed, a manual differential will be performed. Melisa Gran Abs 0.03 0.00 - 0.04 x10(3)/[facility] Y [facility] LABORATORY Specimen Anatomical Collection Method Collection Time Receive d Time (Source) Location / / Volume Laterality Blood specimen 07/05/2017 4:55 PM 017 5:24 (specimen) EST PM EST Resulting Agency Comment Spec In Lab Daphne Shahid MD HEMATOLOGY ORDERABLES Performing Organization Address City/State/[place] [address] (ABNORMAL) Hemogram (07/05/2017 4:55 PM EST) Analysis Performed At Patho logist Time Signature WBC 6.8 4.0 - 9.5 [facility] x10(3)/[facility] LABORATORY RBC 4.67 4.58 - [place] 5.54 [facility] x10(6)/[facility] LABORATORY Hemoglobin 14.0 13.7 - [facility] gm/dL [facility] LABORATORY Hematocrit 41.0 40.5 - [facility] 48.5 % [facility] LABORATORY MCV 87.8 82.9 - [facility] 93.1 [facility] LABORATORY MCH 30.0 27.5 - [place] 32.1 pg [facility] LABORATORY MCHC 34.1 32.0 - [facility] 35.[facility] gm/dL [facility] LABORATORY Platelets 197 145 - 357 [facility] x10(3)/[facility] LABORATORY RDWSD 46.4 (H) 36.0 - [place] 45.0 [facility] LABORATORY RDWCV 14.5 (H) 11.4 - [facility] SU 13.8 % [facility] LABORATORY MPV 9.7 7.6 - 12.9 [facility] LABORATORY nRBC % Auto 0.0 % [facility] LABORATORY nRBC Abs Auto 0.000 0.000 - [place] 0.000 [facility] x10(3)/[facility] LABORATORY Specimen Anatomical Collection Method Collection Time Receive d Time (Source) Location / / Volume Laterality Blood specimen 07/05/2017 4:55 PM 017 5:24 (specimen) EST PM EST Resulting Agency Comment Spec In Lab Daphne Shahid MD HEMATOLOGY ORDERABLES Performing Organization Address City/State/[place] [address] (ABNORMAL) Cardiac Enzymes (LEB/CGP) (07/05/2017 4:55 PM EST) P athologist Signature Troponin-T 1.69 (H) 0.00 - [place] 0.00 ng/mL [facility] LABORATORY Comment: The 99th percentile for Troponin T is le ss than 0.01 ng/mL, any detectable cTnT concentration using this assay should be considered elevated. According to the third universal definit ion of myocardial infarction the following criteria with a clinical prese ntation consistent with acute myocardial ischemia meets the diagnosis for a myocardial infarction (AR). Detection of a rise and/or fall of [...] additional sample may be indicated. Reference: Third [place] Definition of Myocardial Infarction. Journal of the [place] College [employer]iology 2012;60:1581-98 CK, Total 191 0 - 200 unit/L [facility] LABORATORY Specimen Anatomical Collection Method Collection Time Receive d Time (Source) Location / / Volume Laterality Blood specimen 07/05/2017 4:55 PM 017 5:56 (specimen) EST PM EST Resulting Agency Comment Spec In Lab Daphne Shahid MD CHEMISTRY ORDERABLES Performing Organization Address City/[facility]/Z[place] [address] (ABNORMAL) pro-Brain Natriuretic Peptide (07/05/2017 4:55 PM EST) P athologist Signature ProBNP 1,598 (H) <=125 [facility]mL [facility] LABORATORY Specimen Anatomical Collection Method Collection Time Receive d Time (Source) Location / / Volume Laterality Blood specimen 07/05/2017 4:55 PM 017 5:24 (specimen) EST PM EST Resulting Agency Comment Spec In Lab Daphne Shahid MD CHEMISTRY ORDERABLES Performing Organization Address City/State/ZIP [place] [address] [facility] [address] Magnesium (07/05/2017 4:55 PM EST) athologist Signature Magnesium 0.78 0.69 - 1.07 [facility] mmol/L [facility] LABORATORY Specimen Anatomical Collection Method Collection Time Receive d Time (Source) Location / / Volume Laterality Blood specimen 07/05/2017 4:55 PM 017 5:24 (specimen) EST PM EST Resulting Agency Comment Spec In Lab Daphne Shahid MD CHEMISTRY ORDERABLES Performing Organization Address City/State/ZIP Code Phon e Number [address] (ABNORMAL) Basic Metabolic Panel (non-fasting) (07/05/2017 4:55 PM EST) athologist Signature Glucose Lvl 230 (H) 65 - 199 [facility] mg/dL [facility] LABORATORY Comment: Diabetes: >=200 mg/dL plus symp toms BUN 19 10 - 20 mg/dL [facility] LABORATORY Creatinine 1.04 0.80 - 1.50 mg/dL [facility] LABORATORY Sodium 142 135 - 145 mmol/L [facility] LABORATORY Potassium 4.0 3.5 - 5.0 mmol/L [facility] LABORATORY Comment: Please note: ??Patients with WBC >100,00 0 may have falsely elevated Potassium levels. ??For accurate Potassium quantif ication in these patients send serum separator tube (gold top) for subsequent determinations. ??Contact the Clinical Chemistry Laboratory if there are any qu estions. Chloride 100 98 - 107 mmol/L [facility] LABORATORY CO2 28 22 - 31 mmol/L [facility] LABORATORY Anion Gap 14 5 - 15 mmol/L [facility] LABORATORY Calcium 8.5 8.5 - 10.5 mg/dL [facility] LABORATORY Estimated GFR >60 >=60 [facility] LABORATORY Comment: The reported eGFR should be multiplied b y 1.2 for patients. The MDRD is not an appropriate measure o f renal function for patients with body mass extremes or in patients with acute kidney failure. http://EVIAGENICS.LaREDChina.com/DHnkdep http://EVIAGENICS.com/DHMCnkf Specimen Anatomical Collection Method Collection Time Receive d Time (Source) Location / / Volume Laterality Blood specimen 07/05/2017 4:55 PM 017 5:24 (specimen) EST PM EST Resulting Agency Comment Spec In Lab Daphne Shahid MD CHEMISTRY ORDERABLES Performing Organization Address City/[facility]/ZIP Code Phon e Number [address] (ABNORMAL) APTT (07/05/2017 4:55 PM EST) P athologist Signature PTT 41 (H) 25 - 35 sec [facility] LABORATORY Comment: The recommended therapeutic range for fu ll dose, unfractionated heparin at [facility] is 80 ? 114 seconds. [...] Shahid MD HEMATOLOGY ORDERABLES Performing Organization Address City/[facility] [place] [address] (ABNORMAL) POCT Glucose (07/05/2017 4:53 PM EST) P athologist Signature POC Glucose 208 (H) 65 - 199 [facility] mg/dL [facility] LABORATORY Comment: Supplemental ranges: <140 mg/dL before meals <180 mg/dL all other times of the day Specimen Anatomical Collection Method Collection Time Receive d Time (Source) Location / / Volume Laterality Blood specimen 07/05/2017 4:53 PM 017 4:53 (specimen) EST PM EST Daphne Shahid MD POINT OF CARE TEST ORDERABLE S Performing Organization Address City/[facility]/ZIP Code [place] [address] EKG 12 Lead (07/05/2017 4:32 PM EST) Component Value Ref Range Test Analysis Performed Pathologis t Method Time At Signature Ventricular rate 97 BPM MUSE SYSTEM Atrial Rate 97 BPM MUSE SYSTEM P-R Interval 148 ms MUSE SYSTEM QRS Duration 96 ms MUSE SYSTEM Q-T Interval 364 ms MUSE SYSTEM QTC Calculated 462 ms MUSE SYSTEM (Bezet) Calculated P [place] 48 degrees MUSE SYSTEM Calculated R [place] -33 degrees MUSE SYSTEM Calculated T [place] 98 degrees MUSE SYSTEM INTERPRETATION Normal sinus [...] Coronary atherosclerosis of unspecified type of vessel, [place] or graft Cardiomyopathy, ischemic Other specified forms [...] 5:38 PM EST 2 g 200 mL/hr furosemide (LASIX) injection Given 07/05/2017 6:23 PM EST 80 mg ONCE PRN, Starting on Wed07/05/17 at 1823, Until Wed07/05/17 at 1915, Cath (Intra-Procedure), Routine furosemide (LASIX) tablet 20 mg 20 mg, Oral, DAILY, First dose on Wed at 0900, Until Discontinued, Routine furosemide (LASIX) tablet 40 mg Given 07/14/2017 9:22 AM EST 40 mg 40 mg, Oral, DAILY, 7 doses, First dose (after last modification) on Wed07/13/17 at 0900, Last dose on Wed07/19/17 at 0900, Routine Given 07/13/2017 8:40 AM EST 40 mg insulin glargine VIAL injection 50 Units Given [...] Given 07/12/2017 11:37 AM EST 2 Units iohexol (OMNIPAQUE) 350 mg/mL solution Given 07/05/2017 6:46 PM EST 50 mLs ONCE PRN, Starting on Wed07/05/17 at 1846, Until Wed07/07/17 at 1838, Cath (Intra-Procedure), Routine levothyroxine (SYNTHROID) tablet 175 mcg Given 07/14/2017 [...] Given 07/10/2017 10:27 AM EST 10 mLs meTOPROLOL (LOPRESSOR) injection 2.5 mg 2.5 mg, [...] 6:27 PM EST 200 mcg/min 60 mL/hr nitroPRUSSide (NIPRIDE) 50 mg New Bag 07/05/2017 6:37 PM 0.25 mcg/kg/min 6.5 mL/hr in dextrose 5% 250 mL EST infusion (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) CONTINUOUS PRN, Starting on Wed07/05/17 at 1837, Until Wed07/05/17 at 1915, Cath (Intra-Procedure), Routine oxyCODONE (ROXICODONE) immediate release Given 07/10/2017 1:41 [...] 2 tablet, Oral, DAILY, First dose on Wed07/08/17 at 2100, Until Discontinued, Post-op day 1, [...] Jones RN) 0922 (Given - Provider: Myrna triplett RN) 81 mg, Oral, DAILY, First dose on Wed at 1900, Until Discontinued, Start on post-op day 1 in the AM., Routine aspirin suppository 300 mg(Linked Group 1) 0821 (See A lternative - Provider: More Luther RN) 0841 (See Alternative - Provider: George Jones, VAMSI)0900 [...] Luther RN) 1738 (Given - Provider: Em Jones, VAMSI) 40 mg, Oral, EVERY EVENING, First dose [...] Jacobson, VAMSI)0213 (Stopped - Provider: Denice Jacobson, RN)0932 (New Bag - Provider: Myrna Young, VAMSI)1002 [...] Units 1836 (Given - Provider: Em Jones, RN - Comment: ate chocolate ice cream/pears [...] insulin lispro (humaLOG) VIAL injection 0-12 Units(Alix moodyd Group 2) 0000 (Not Given - Provider: [...] Em Jones, VAMSI)1600 (Not Given - Provider: mE Jones RN - Reason: Order parameters not met) 0800 (Not Given - Provider: Myrna mendoza RN - Reason: Order parameters not met)1215 (Given - Provider: Myrna Young, RN) nit BG 161 - 180 Give 2 units BG 181 - 2 00 Give 4 units BG 201 - 220 Give 6 units BG 221 - 240 Give 9 units BG greater than 240, give 12 units and recheck BG in 2 hours. If BG remains greater than 240, 1999 (N ot Given - Provider: Denice Jacobson RN - Reason: Order parameters not met - Comment: BG 121) repeat 12 units (no more than three time s) & call for new basal insulin orders. If less than 240 after two hours, give no insulin and resume prior schedule., Routine insulin lispro (humaLOG) VIAL injection 0-20 Units (CA NCELED) 0830 (Given - Provider: More Luther, VAMSI)1259 (Given - Provider: More Luther, VAMSI)1757 (Given - Provider: Yanet Valdovinos, VAMSI) 0842 (Given - Provider: Em Jones, RN)1307 (Given - Provider: Em Jones, RN) 0-20 Units, Subcutaneous, 3 TIMES DAILY WITH MEALS, First dose on Wed07/10/17 at 1200, Until Discontinued, MEAL ASSOCIATED Give 1 unit for every 5 grams carbohydrate. Hold if not eating or if BS <90, Routine levothyroxine (SYNTHROID) tablet 175 mcg 0521 (Given - Provider: Carmen Berry, VAMSI) 0615 (Given - Provider: Ale Rangel, VAMSI) 0530 (Gi cody - Provider: Denice Jacobson, VAMSI) 175 mcg, Oral, EVERY MORNING, First dose on Wed07/06/17 at 0600, Until Discontinued, Routine lisinopril (PRINIVIL;ZESTRIL) tablet 10 mg 0921 (Given - Provider: Myrna Young, VAMSI) 10 mg, Oral, DAILY, First dose on Wed at 0900, Until Discontinued, Routine lisinopril (PRINIVIL;ZESTRIL) tablet 5 mg (CANCELED) 0 827 (Given - Provider: More Luther, VAMSI) 0840 (Given - Provider: Em Jones, VAMSI) 5 mg, Oral, DAILY, First dose on [...] VAMSI) 0615 (Given - Provider: Ale Rangel RN)1311 (Given - Provider: Em Jones RN) 12.5 mg, Oral, EVERY 8 HOURS SCHEDULED, First dose on Wed07/11/17 at 1400, Until Discontinued, Routine meTOPROLOL tartrate (LOPRESSOR) tablet 25 mg 2000 (Given - Provider: Denice Jacobson RN) 0921 (Given - Provider: Myrna triplett RN) 25 [...] 0922 (Given - Provider: Myrna Young, VAMSI) 20 mEq, Oral, DAILY, First dose on Wed09/12/16 at 1015, Until Discontinued, Routine potassium chloride (K-DUR/KLOR-CON) extended release tablet 40 mEq (COMPLETED) 08 (Given - Provider: Em Jones RN) 40 mEq, Oral, ONCE, 1 dose, [...] running) 0615 (Given - Provider: Ale Rangel , VAMSI)1330 (Not Given - Provider: Em Jones RN - Reason: Contraindicated)2003 (Given - Provider: Denice Jacobson RN) 0532 (Given - Provider: Denice Jacobson RN)1330 (Not Given - Provider: Myrna Young RN - Reason: Patient/family refused) 5 mL, Intravenous, EVERY 8 HOURS, First dose on Wed07/11/17 at 1330, Until Discontinued, Routine 2200 (Given - Provider: Ale Rangel, VAMSI) 2129 (No t Given - Provider: Denice Jacobson [...] discontinued. warfarin (COUMADIN) tablet 2.5 mg (COMPLETED) 1737 (Given - Provider: Em Jones RN) 2.5 mg, Oral, ONCE, 1 dose, Wed07/13/17 at 1700, Routine warfarin (COUMADIN) tablet 2.5 mg 2.5 mg, Oral, ONCE, 1 dose, Wed07/14/17 at 1700, Routine warfarin (COUMADIN) tablet 5 mg (COMPLETED) 161 (Give n - Provider: More Luther RN) 5 mg, Oral, ONCE, 1 dose, Wed07/12/17 at 1700, Routine Continuous Medication Order 07/12/2017 07/13/2017 07/14/2017 AMIOdarone (CORDARONE) 360 mg in dextrose 5% 200 mL in fusion () 0817 (New Bag - Provider: More Luther, VAMSI)1200 (Rate/Dose Change - Provider: More Luther RN)195 (Rate/Dose Change - Provider: Elba Valverde, VAMSI - Comment: dose running at 0.5 at beginning of shift) 0721 (Stopped - Provider: Portillo Jones RN - Comment: iv ifiltrated =, see vasculkar access notes) 1 mg/min (33.3333 mL/hr, rounded to 33.3 mL/hr), at 33.3 mL/hr, Intravenous, CONTINUOUS, Starting Wed07/11/17 at 0900, Until Wed07/13/17 at 1000, [...] mg, Intravenous, EVERY 8 HOURS PRN, [facility] Wed07/07/17 at 1839, Until Wed07/14/17 at 1639, [...]
Routine documented in this encounter Care Teams Methods Engineer Relationship Specialty Start Date End Date Lovely Vicente MD PCP - General 04/16/[address] [place] [address] documented as of this encounter
--- OUTSIDE RECORDS SUMMARY | 2022-02-06 13:40 | XMS_ITS | Encounter Summary ---
:1945 Author Organization [facility] [place] [address] Care Team Providers Name Role Phone Lovely Vicente MD Primary Care Provider Reason for Visit Reason Onset Date Comments Medication Refill 06/19/2016 Encounter Details Date Type Department Care Team Description 06/19/2016 Refill Endocrinology at [facility] Luz Stallings MD [place] [address] ENDOCRINOLOGY DEPT [phone] [place], [place] [address] (Wo rk) Social History Tobacco [...] Office Visit Cardiology Liz Poole PA [facility] er Cardiology Dept [place], [place] [address] (Wo rk) 03/12/2022 Office Visit Cardiology Vitaliy Nobles MD [facility] ER CARDIOLOGY [place], [place] [address] (Wo rk) documented as of this encounter Visit Diagnoses Not on filedocumented in this encounter Care Teams Rn Anesthetist Relationship Specialty Start Date End Date Lovely Vicente MD PCP - General 04/16/[address] [place] [address] documented as of this encounter
--- OUTSIDE RECORDS SUMMARY | 2022-02-06 13:40 | XMS_ITS | Encounter Summary ---
:1945 Author Organization [facility] [place] [address] Care Team Providers Name Role Phone Lovely Vicente MD Primary Care Provider Encounter Details Date Type Department Care Team Description 11/28/2016 Telephone Dermatology at [facility] Rigoberto Garcia III, [address] [place] [address] [facility] [phone] [facility] [place], [place] [address] (Wo rk) Social History Tobacco Use Types Packs/Day Years Used Date Former Smoker Smokeless Tobacco: Never Used Alcohol Use Standard Drinks/Week Comments No 0 (1 standard drink = 0.6 oz pure alcoho l) Sex Assigned at Date Recorded Not on file documented as of this encounter Miscellaneous Notes Telephone Encounter - Rigoberto Garcia III, MD - 11/28/2016 3:06 PM EDT I called the patient and discussed the path report: DIAGNOSIS A - Skin, right suprascapular, shave biopsy: 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 C - Skin, mid upper abdomen, [...] atypia involves the peripheral ?biopsy edge. I discussed these findings with the patient and explored therapeutic options. I recommended we observe (A) and (B) for healing . I recommended that (C) be re-excised because of severe atypia - to ensure complete removal. I remi forward this to Cara for scheduling with first available provider. Rigoberto Garcia MD Section of Dermatology [facility] documented in this encounter Plan of Treatment Upcoming Encounters Date Type Specialty Care Team Description 02/19/2022 Laboratory Appointment Lab 02/19/2022 Office Visit Cardiology Liz Poole PA [facility] Cardiology [place], [place] [address] (Wo rk) 03/12/2022 Office Visit Cardiology Vitaliy Nobles MD [facility] CARDIOLOGY [place], [place] [address] (Wo rk) documented as of this encounter Visit Diagnoses Not on filedocumented in this encounter Care Teams Oil [employer] Gas Principal Relationship Specialty Start Date End Date Lovely Vicente MD PCP - General 04/16/[address] [place] [address] documented as of this encounter
--- OUTSIDE RECORDS SUMMARY | 2022-02-06 13:40 | XMS_ITS | Encounter Summary ---
:1945 Author Organization [facility] [place] [address] Care Team Providers Name Role Phone Lovely Vicente MD Primary Care Provider Encounter Details Date Type Department Care Team Description 07/05/2017 Telephone Cardiology Kim Galindo MD [facility] [place] [address] CARDIOLOGY DEPT [phone] [place], [place] [address] (Wo rk) Social History Tobacco Use Types Packs/Day Years Used Date Former Smoker Cigarettes 3 5 Quit: 07/26/18 69 Smokeless Tobacco: Never Used Alcohol Use Standard Drinks/Week Comments No 0 (1 standard drink = 0.6 oz pure alcoho l) Sex Assigned at Date Recorded Not on file documented as of this encounter Miscellaneous Notes Telephone Encounter - Kim Galindo MD - 07/05/2017 1:54 PM EST Telephone Triage Note Initial Contact Date: 07/05/17 Initial contact time: 1:54pm Referring Provider: Ivania CROWELL) Patient Location: [facility] Presenting Symptoms per OSH: 72 year old male with a history of MARIA VICTORIA who presented to OSH ED after having recent episode of acute SOB and chest pressure. He woke two nights ago from sleep with acute onset SOB, thought his CPAP had run out of O2. Today was at PCP office for gout and after telling about his SOB, was sent to the ED where troponin found to be 13. Patient has not had any chest pain, HD stable. Past Medical History: DM MARIA VICTORIA Pertinent Diagnostic Findings: VSS EKG NSR with anterior q waves and ST elevation in V1-V3 (does not meet STEMI criteria); V3 elevationresolved on subsequent EKG Troponin 13 OSH Interventions: ASA 325mg Heparin gtt Plan: Patient likely infarcted several days ago, EKGs now with evidence of prior STEMI and resolving ischemic changes. HD stable and on RA, however, given recent infarct and elevated troponin, transport patient to [facility] for cath this afternoon and arrhythmia monitoring. Kim Galindo MD Cytology Manager documented in this encounter Plan of Treatment Upcoming Encounters Date Type Specialty Care Team Description 02/19/2022 Laboratory Appointment Lab 02/19/2022 Office Visit Cardiology Liz Poole PA [facility] er Cardiology Dept [place], [place] [address] (Wo rk) 03/12/2022 Office Visit Cardiology Vitaliy Nobles MD [facility] ER CARDIOLOGY [place], [place] [address] (Wo rk) documented as of this encounter Visit Diagnoses Not on filedocumented in this encounter Care Teams Pnp Relationship Specialty Start Date End Date Lovely Vicente MD PCP - General 04/16/15 [facility] [address] [place] [address] documented as of this encounter
--- OUTSIDE RECORDS SUMMARY | 2022-02-06 13:40 | XMS_ITS | Encounter Summary ---
:1945 Author Organization [facility] [place] [address] Care Team Providers Name Role Phone Lovely Vicente MD Primary Care Provider Reason for Visit Reason Comments Thyroid Cancer Encounter Details Date Type Department Care Team Description 06/05/2015 Office Visit Endocrinology at [facility] Albertina Prescott, History of papillary [facility] MD Luz adenocarcinoma of [facility] thyroid (Primary Dx) [place] [address] CENTER [phone] [place] [address] Social History Tobacco Use Types Packs/Day Years Used Date Former Smoker Smokeless Tobacco: Never Used Alcohol Use Standard Drinks/Week Comments No 0 (1 standard drink = 0.6 oz pure alcoho l) Sex Assigned at Date Recorded Not on file documented as of this encounter Last Filed Vital Signs Vital Sign Reading Time Taken Comments Blood Pressure 163/93 06/05/2015 8:03 AM EST Pulse 76 06/05/2015 8:03 AM EST Temperature - - Respiratory Rate - - Oxygen Saturation - - Inhaled Oxygen Concentration - - Weight 85.8 kg (189 lb 3.2 oz) 06/05/2015 8:03 AM EST Height 172.7 cm (5' 8) 06/05/2015 8:03 AM EST Body Mass Index 28.77 06/05/2015 8:03 AM EST documented in this encounter Progress Notes Luz Prescott MD - 06/15/2015 10:26 PM EST TFTs came back showing an elevated TSH of 5.86, confirming suspicion of possible underreplacement. Will have him increase his levothyroxine to 175 mcg daily. His goal TSH would be lower end of normal. Luz Chamberlain MD - 06/05/2015 8:54 AM EST THYROID ULTRASOUND Performed by: Luz Prescott MD Indication: PTC, f/u US Date: 06/05/2015 Comparison: 04/2014 Real time images of the thyroid gland were obtained using a [employer] ultrasound machine. All measurements are given as AP x Transverse x Longitudinal Right Lobe: Absent Left Lobe: Absent Isthmus: Absent Central/Lateral neck: no morphologically abnormal lymph nodes. Impression: No sonographic evidence of recurrence. LUZ PRESCOTT MD Fox Farmerbox office attendant Section of Endocrinology [facility] Luz Prescott MD - 06/05/2015 8:21 AM EST Endocrinology Clinic Follow-up Visit Reason for Visit: annual follow-up of micropapillary thyroid carcinoma, year #2 HISTORY OF PRESENT ILLNESS: Mr. Don Fatima is a 70 y.o. 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 Palmer. He presents today for his annual follow-up. He has no complaints, has been feeling well overall. Good energy levels, he does often feel cold, no palpitations or tremulousness. PAST MEDICAL HISTORY: Patient Active Problem List Diagnosis Date Noted ??? BPH (benign prostatic hyperplasia) 11/28/2013 ??? Atypical nevus of abdominal wall 07/31/2013 ??? Urinary retention 04/05/2013 ??? MARIA VICTORIA (obstructive sleep apnea) on CPAP 03/31/2013 ??? Goiter 01/25/2013 ??? Seborrheic psoriasis- scalp and ingtergluteal area 10/04/2012 ??? Skin lesion of chest wall 10/04/2012 ??? Melanoma 09/22/2011 MEDICATIONS: Medications 06/05/15 0820 Medication Sig Taking? glipiZIDE (GLUCOTROL) 10 mg Tablet Extended Rel 24 hr Take 10 mg by mouth 2 times daily. Yes meTOPROLOL succinate (TOPROL-XL) 25 mg Tablet Sustained Release 24 hr Take 25 mg by mouth nightly. Yes levothyroxine (SYNTHROID) 150 mcg Tablet take 1 tablet by mouth once daily Yes Blood Sugar Diagnostic, Drum (ACCU-CHEK COMPACT TEST) Strip by [facility].(Non-Drug; Combo Route) route 2 times daily. Yes amLODIPine (NORVASC) 5 mg Tablet Take 5 mg by mouth daily. Yes fish oil-omega-3 fatty acids 1,000 mg Capsule Take 2 g by mouth daily. Yes multivitamin (THERAGRAN) Tablet Take 1 tablet by mouth daily. Yes aspirin 81 mg EC tablet Take 81 mg by mouth daily. Yes lisinopril (PRINIVIL;ZESTRIL) 20 mg tablet Take 20 mg by mouth daily. Yes metFORMIN (GLUCOPHAGE) 850 mg tablet Take 850 mg by mouth 2 times daily (with meals). Takes 1 tab inmorning, 2 tabs in evening Yes Magnesium 200 mg Tablet Take 1,000 mg by mouth daily. fluocinolone acetonide (SYNALAR) 0.01 % external solution Twice daily to less severe areas of psoriasis ALLERGIES: No Known Allergies SOCIAL HISTORY: History Smoking status ??? Former Smoker Smokeless tobacco ??? Never Used FAMILY HISTORY: reviewed REVIEW OF SYSTEMS: All 12 systems reviewed and negative except as noted per HPI. PHYSICAL EXAM: Vitals Office Visit from 06/05/2015 in Endocrinology Weight - Scale 85.821 kg (189 lb 3.2 oz) Height 172.7 cm (5' 8) BSA (Calculated - sq m) 2.03 sq meters BMI (Calculated) 28.8 Heart Rate 76 BP (!) 163/93 mmHg Gen: NAD, AAOx3, speaking full sentences, calm pleasant demeanor, average habitus Eyes: PERRL, EOMI, anicteric sclerae without injection, no proptosis or lid lag ENT: moist oral mucosa Neck:surgically absent thyroid, Heme: no lymphadenopathy Pulm: CTAB, no stridor Cardiac: reg s1s2, no m/r/g GI: abdomen soft, NT, ND, normoactive bowel sounds, no hepatomegaly MSK: 5/5 strength in all muscle groups of the upper and lower extremities, no LE edema Neuro: 2+ biceps and patellar DTRs, no clonus, no delay of the relaxation phase, no tremor. 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 Clinically appears euthyroid, but is feeling cold all the time, will confirm with TSH to make sure he is not underreplaced on his current dose of LT4. PLAN: --TSH, Tg, Tg Ab today --goal TSH is normal range. --f/u in 1 year LUZ PRESCOTT MD Fox Farmerbox office attendant Section of Endocrinology [facility] documented in this encounter Miscellaneous Notes Addendum Note - Luz Prescott MD - 06/15/2015 10:29 PM EST Addended by: LUZ PRESCOTT on: 06/15/2015 10:29 PM Modules accepted: Orders Addendum Note - Lisa Carrasco - 06/05/2015 9:00 AM EST Addended by: LISA CARRASCO on: 06/05/2015 09:00 AM Modules accepted: Orders documented in this encounter Plan of Treatment Upcoming Encounters Date Type Specialty Care Team Description 02/19/2022 Laboratory Appointment Lab 02/19/2022 Office Visit Cardiology Liz Poole PA [facility] Cardiology Dept [place], [place] [address] (Wo rk) 03/12/2022 Office Visit Cardiology Vitaliy Nobles MD [facility] ER CARDIOLOGY [place], [place] [address] (Wo rk) documented as of this encounter Procedures Procedure Name Priority Date/Time Associated Diagnosis Comme nts THYROGLOBULIN STAT 06/05/2015 9:04 AM History of papillary Results for this EST adenocarcinoma of procedure are in thyroid the results section. TSH STAT 06/05/2015 9:04 AM History of papillary R esults for this EST adenocarcinoma of procedure are in thyroid the results section. documented in this encounter Results Thyroglobulin (06/05/2015 9:04 AM EST) athologist Signature Thyroglobulin 0.6 <=54.9 CERNER ng/mL [facility] Comment: Interpret with caution. Tg levels may [...] BR et al. J Clin Endo Metab 1999;84:3828-4357). Assay performed using the DPC Immulite T g immunometric assay. (lowest detection limit is <0.4 ng/ml). Thyroglob Ab <20.0 0.0 - 40.0 IU/mL CERNER MIL LENNIUM Comment: Assay performed is the DPC Immulite Tg-A b immunometric assay. (Cutoff for TgAb negativity is <20 IU/ml ) Specimen Anatomical Collection Method Collection Time Receive d Time (Source) Location / / Volume Laterality Blood specimen 06/05/2015 9:04 AM 015 (specimen) EST 11:35 AM EST Resulting Agency Comment Spec In Lab Luz Prescott MD CHEMISTRY ORDERABLES Performing Organization Address City/State/[place] [address] CERNER MILLENNIUM (ABNORMAL) TSH (06/05/2015 9:04 AM EST) P athologist Signature TSH 5.88 (H) 0.27 - 4.20 CERNER mcIU/mL MILLENNIUM Specimen Anatomical Collection Method Collection Time Receive d Time (Source) Location / / Volume Laterality Blood specimen 06/05/2015 9:04 AM 015 9:15 (specimen) EST AM EST Resulting Agency Comment Spec In Lab Luz Prescott MD CHEMISTRY ORDERABLES Performing Organization Address City/[facility]/[place]IP [place] [address] CERNER MILLENNIUM documented in this encounter Visit Diagnoses Diagnosis History of papillary adenocarcinoma of t hyroid - Primary Personal history of malignant neoplasm o f thyroid documented in this encounter Care Teams Dobby Loom Weaver Relationship Specialty Start Date End Date Lovely Vicente MD PCP - General 04/16/15 [address] [place] [address] documented as of this encounter
--- OUTSIDE RECORDS SUMMARY | 2022-02-06 13:40 | XMS_ITS | Encounter Summary ---
:1945 Author Organization [facility] [place] [address] Care Team Providers Name Role Phone Lovely Vicente MD Primary Care Provider Reason for Visit Reason Comments Medication Refill Encounter Details Date Type Department Care Team Description 05/10/2015 Refill Endocrinology at [facility] Rosalind Covarrubias, [facility] [place] [address] [facility] [phone] ENDOCRINOLOGY [place], [place] [address] (Mikayla rk) Social History Tobacco Use Types [...] Office Visit Cardiology Liz Poole PA [facility] er Cardiology Dept [place], [place] [address] (Wo rk) 03/12/2022 Office Visit Cardiology Vitaliy Nobles MD [facility] ER CARDIOLOGY [place], [place] [address] (Wo rk) documented as of this encounter Visit Diagnoses Not on filedocumented in this encounter Care Teams Equity Trader Relationship Specialty Start Date End Date Lovely Vicente MD PCP - General 04/16/[address] [place] [address] [address] [facility] [address] [place] [address] documented as of this encounter
--- OUTSIDE RECORDS SUMMARY | 2022-02-06 13:40 | XMS_ITS | Encounter Summary ---
:1945 Author Organization [facility] [place] [address] Care Team Providers Name Role Phone Angela Holliday APRN Primary Care Provider Reason for Visit Reason Comments Benign Prostatic Hypertrophy Encounter Details Date Type Department Care Team Description 11/28/2013 Follow-Up Urology at [facility] Blade Smith, Urinary retention (Primary D x); [facility] BPH (benign prostatic hyperplasia) [place] [address] UROLOGY DEPT [place], [place] [address] (Wo rk) Social History Tobacco Use Types Packs/Day Years Used Date Former Smoker Alcohol Use Standard Drinks/Week Comments No 0 (1 standard drink = 0.6 oz pure alcoho l) Sex Assigned at Date Recorded Not on file documented as of this encounter Last Filed Vital Signs Vital Sign Reading Time Taken Comments Blood Pressure 116/70 11/28/2013 8:44 AM EDT Pulse 76 11/28/2013 8:44 AM EDT Temperature - - Respiratory Rate - - Oxygen Saturation - - Inhaled Oxygen Concentration - - Weight 83.9 kg (185 lb) 11/28/2013 8:44 AM EDT Height 172.7 cm (5' 8) 11/28/2013 8:44 AM EDT Body Mass Index 28.13 11/28/2013 8:44 AM EDT documented in this encounter Progress Notes Blade Smith MD - 11/28/2013 9:39 AM EDT CC: History of urinary retention following thyroid surgery. HPI: This 68 Y/O man is voiding with stable stream and nocturia time two following the need for a catheter following surgery. He subsequently developed a UTI which was successfully treated with antibiotics. Currently, his PSA is 4.07 and he has no hematuria, UTI or stones. today's urine is negative by dip stick. ROS: General: Still feels weakness. Exam: General: No acute distress Cardiopulmonary: Rates regular Abdomen: No masses or tenderness Genitalia: Normal Prostate is 2+ symmetrical Skin: Warm and dry. Imp: Stable BPH with history of UTI following catheterization Plan: Recheck with a NILA and PSA in one year. documented in this encounter Plan of Treatment Upcoming Encounters Date Type Specialty Care Team Description 02/19/2022 Laboratory Appointment Lab 02/19/2022 Office Visit Cardiology Liz Poole PA [facility] Cardiology Dept [place], [place] [address] (Wo rk) 03/12/2022 Office Visit Cardiology Vitaliy Nobles MD [facility] CARDIOLOGY [place], [place] [address] (Wo rk) documented as of this encounter Procedures Procedure Name Priority Date/Time Associated Diagnosis Comme nts PSA Routine 11/28/2013 8:02 AM Urinary retention Resu lts for this (ULTRASENSITIVE) EDT procedure a re in the results section. documented in this encounter Results (ABNORMAL) PSA (11/28/2013 8:02 [...] Organization Address City/State/ZIP Code Phon e Number [place] [phone] [facility] documented in this encounter Visit Diagnoses Diagnosis Urinary retention - Primary Retention of urine, unspecified BPH (benign prostatic hyperplasia) Unspecified hyperplasia of prostate with out urinary obstruction and other lower urinary tract symptoms (LUTS) documented in this encounter Care Teams Abrasive Grader Helper Relationship Specialty Start Date End Date Angela Holliday APRN PCP - General 01/25/13 04/15/[address] [place] [address] documented as of this encounter
--- OUTSIDE RECORDS SUMMARY | 2022-02-06 13:40 | XMS_ITS | Encounter Summary ---
:1945 [place] [address] Care Team Providers Name Role Phone Lovely Vicente MD Primary Care Provider Reason for Visit Reason Onset Date Comments Other 12/09/2016 RESULTS Encounter Details Date Type Department Care Team Description 12/09/2016 Telephone Dermatology at [facility] Halima Cadet MD Other (RESULTS) [address] [facility] [place] [address] [facility] [phone] [place], [place] [address] (Wo rk) Social History Tobacco Use Types Packs/Day Years Used Date Former Smoker Smokeless Tobacco: Never Used Alcohol Use Standard Drinks/Week Comments No 0 (1 standard drink = 0.6 oz pure alcoho l) Sex Assigned at Date Recorded Not on file documented as of this encounter Miscellaneous Notes Telephone Encounter - Juan Miguel Domínguez LPN - 12/09/2016 5:17 PM EDT Spoke with patient's , Kisha (personal employee's representative). I advised her Don's pathology results are back, however Dr. Cordero has not yet reviewed them. Once they are reviewed by Dr. Cordero, well will return her call. Kisha verbalized understanding and is happy with this plan. JUAN MIGUEL DOMÍNGUEZ LPN Telephone Encounter - Yoana Soares - 12/09/2016 3:49 PM EDT I received a phone call from Don Fatima's . She was looking to see if his biopsy results were back. She can be reached back at [phone] documented in this encounter Plan of Treatment Upcoming Encounters Date Type Specialty Care Team Description 02/19/2022 Laboratory Appointment Lab 02/19/2022 Office Visit Cardiology Liz Poole PA [facility] Cardiology Dept [place], [place] [address] (Wo rk) 03/12/2022 Office Visit Cardiology Vitaliy Nobles MD [facility] CARDIOLOGY [place], [place] [address] (Wo rk) documented as of this encounter Visit Diagnoses Not on filedocumented in this encounter Care Teams Superintendent Pipelines Relationship Specialty Start Date End Date Lovely Vicente MD PCP - General 04/16/[address] [place] [address] documented as of this encounter
--- OUTSIDE RECORDS SUMMARY | 2022-02-06 13:41 | XMS_ITS | Encounter Summary ---
:1945 Author Organization [facility] [place] [address] Care Team Providers Name Role Phone Angela Holliday APRN Primary Care Provider Encounter Details Date Type Department Care Team Description 01/25/2013 Clinical [place] [address] Social History Tobacco Use Types Packs/Day Years Used Date Former Smoker Alcohol Use Standard Drinks/Week Comments No 0 (1 standard drink = 0.6 oz pure alcoho l) Sex Assigned at Date Recorded Not on file documented as of this encounter Last Filed Vital Signs Vital Sign Reading Time Taken Comments Blood Pressure - - Pulse - - Temperature - - Respiratory Rate - - Oxygen Saturation 97% 01/25/2013 11:13 AM EDT Inhaled Oxygen Concentration - - Weight - - Height 172.7 cm (5' 8) 01/25/2013 11:13 AM EDT Body Mass Index - - documented in this encounter Progress Notes Eva Saenz RN - 01/25/2013 12:15 PM EDT PAT Questionnaire reviewed with patient while in Pre-Admission Testing for upcoming surgery date of 03/28/2013. States has had a touch of emphysema in the past and at times becomes short of breath inthe cold weather. Uses a C-PAP machine-instructed to bring that in with him on DOS. States answered yes to question on surgery or radiation to head and neck, but answered this incorrectly. Pre-operative folder reviewed with patient. Patient verbalizes good understanding of all informationreviewed. Labwork and EKG performed while in Pre-Admission Testing. Pt sent to radiology for chest x-ray. documented in this encounter Plan of Treatment Upcoming Encounters Date Type Specialty Care Team Description 02/19/2022 Laboratory Appointment Lab 02/19/2022 Office Visit Cardiology Liz Poole PA [facility] Cardiology Dept [place], [place] [address] (Wo rk) 03/12/2022 Office Visit Cardiology Vitaliy Nobles MD [facility] CARDIOLOGY [place], [place] [address] (Wo rk) documented as of this encounter Visit Diagnoses Not on filedocumented in this encounter Care Teams Candy Cutter Machine Relationship Specialty Start Date End Date Angela Holliday APRN PCP - General 01/25/13 04/15/[address] [place] [address] documented as of this encounter
--- OUTSIDE RECORDS SUMMARY | 2022-02-06 13:41 | XMS_ITS | Encounter Summary ---
:1945 Author Organization [facility] [place] [address] Care Team Providers Name Role Phone MiyaLokeshAngela STACIE Primary Care Provider Encounter Details Date Type Department Care Team Description 04/04/2013 Orders Only General Surgery at [facility] [facility] [place] carcinoma (Primary Dx) [facility] [place] [address] GENERAL SURGERY [phone] [place], [place] [address] Social History Tobacco Use Types [...] Cardiology Liz Poole PA [facility] er Cardiology Dept [place], [place] [address] (Wo rk) 03/12/2022 Office Visit Cardiology Vitaliy Nobles MD [facility] ER CARDIOLOGY [place], [place] [address] (Wo rk) documented as of this encounter Visit Diagnoses Diagnosis Papillary thyroid carcinoma - Primary Malignant neoplasm of thyroid gland documented in this encounter Care Teams Plant Accountant Relationship Specialty Start Date End Date Angela Holliday APRN PCP - General 01/25/13 04/15/[address] [place] [address] documented as of this encounter
--- OUTSIDE RECORDS SUMMARY | 2022-02-06 13:41 | XMS_ITS | Encounter Summary ---
:1945 [place] [address] Care Team Providers Name Role Phone Holley Hollidayica STACIE Primary Care Provider Encounter Details Date Type Department Care Team Description 03/28/2013 [facility] Barbara Gomes MD Dx) [facility] [place] [address] [id number] [phone] Social History Tobacco Use Types Packs/Day Years Used Date Former Smoker Alcohol Use Standard Drinks/Week Comments No 0 (1 standard drink = 0.6 oz pure alcoho l) Sex Assigned at Date Recorded Not on file documented as of this encounter Last Filed Vital Signs Vital Sign Reading Time Taken Comments Blood Pressure 154/85 03/29/2013 7:41 AM EDT Pulse 96 03/29/2013 7:41 AM EDT Temperature 36.9 ??C (98.4 ??F) 03/29/2013 7:41 AM EDT Respiratory Rate 16 03/29/2013 7:41 AM EDT Oxygen Saturation 96% 03/29/2013 7:41 AM EDT Inhaled Oxygen Concentration - - Weight 83.5 kg (184 lb) 03/28/2013 8:49 AM EDT Height 172.7 cm (5' 8) 03/28/2013 8:49 AM EDT Body Mass Index 27.98 03/28/2013 8:49 AM EDT documented in this encounter Discharge Instructions Patient InstructionsBlade Lowe MD - 03/29/2013 10:08 AM EDT Instructions following Thyroid or Parathyroid Surgery What to Expect Following Surgery: Swelling and/or bruising under and around the incision is normal. It is usually greatest on the second or third day following surgery. You may also feel the sensation of swelling or firmness that can last for a month or more Your scar will be most visible for 1-2 months following your operation and will gradually fade over the next 6-8 months. As it heals, a scar looks more pink or red than the skin around it. You may feel a ???healing ridge?? directly under the incision. This is normal and will go away whenhealing is complete in 3-6 months. The skin just above and below your incision will feel numb. This will improve over several months but some patients may have long-term decrease in sensation over these areas You may notice minor difficulty in swallowing which will improve over time. Your voice may be hoarse or weak at first--because the surgery was near the voice box--but usually recovers over several weeks Incision Care: Keep dressing on your incision for the next 2 days, then you may remove dressing and leave incision open to air. Remove dressing and replace with dry gauze if it becomes saturated or wet in the next 2 days, replace as needed. If there are pieces of tape directly on the skin (steri-strips), please leave them on until they fall off on their own. You may trim them back as they peel up, or just remove them after 2 weeks. Once dressing is removed in 2 days you may shower and get incision wet. Pat dry immediately following. Do not scrub area vigorously for the next 2 weeks. Do not soak incision under water (i.e. bath or swimming) for the next 3 weeks to prevent a wound infection. Do not use any ointments/salves/Vitamin E on the incision until after your first follow-up appointment as these may impair early wound healing Incisions are sensitive to sunlight. For 1 year after surgery you should use sunscreen when outdoorsfor long periods of time to prevent permanent darkening of the scar. This includes tanning booths Diet & Activity: No restrictions in your diet are necessary. Activity as tolerated by your comfort level. You may return to work in 7 - 14 days or sooner if desired. NO DRIVING for at least 8 hours following any dose of an opioid pain medication if one was prescribed for you. Thyroid Hormone: If you had a thyroid operation, you may be prescribed thyroid hormone replacement (levothyroxine, synthroid, levothroid) to take daily. Starting dose is 137 mcg (micrograms) daily and we will give you an initial prescription for an 8 week supply. Take this at the same time each day. A blood test will performed at your first follow-up visit to ensure dosing is correct for you. Pain Management: Take NSAIDS like ibuprofen (motrin, advil), naproxen (Naprosyn, Aleve), or acetaminophen (Tylenol) every 6 hours for the first 3-5 days following surgery to help minimize pain. Use opioid (Percocet, Vicodin, Tylenol #3) pain medications for severe pain, and do not take with alcohol. To prevent Tylenol overdose do not take Tylenol doses within 4-6 hours before or after these medications (they contain Tylenol as well) Opioid medications typically cause constipation, so we suggest using a stool softener in addition (metamucil, colace...etc.) You may apply ice or cold packs to the incision for 15-20 minutes several times a day for the first 2-3 days following surgery to help with discomfort You may feel some stiffness/soreness in your shoulders, back, and neck. This may take a few days or weeks to go away completely. You may use moist warm heat, heating pad, or massage to these areas for 15-20 minutes several times a day. Do not be afraid to move your neck - gently flexing and stretching your neck muscles and light massage will help prevent stiffness Pathology Report: All specimens removed at surgery are analyzed by a pathologist. This report usually takes 4 businessdays to be ready. Dr. Mcknight will call you with this report as soon as it is available. Calcium Supplementation: Your body???s calcium levels may fall following a total thyroidectomy or parathyroid operation, which usually lasts only a few days. Take two 600 mg calcium citrate with vitamin D tablets of capsules (you can buy this over the counter at your pharmacy or grocery store) three times a day until you speak with Dr. Mcknight about your path report. He will review your need to continue this at that time. If you notice a tingling sensation in your hands, feet, around your mouth, or develop muscle spasms then please call the General Surgery nurse at [phone], since this may mean that you need morecalcium. Follow-up Appointment: Will be scheduled with Dr. Mcknight in 6 weeks Date and time as well as any required labs will be mailed to you Please call [phone] to confirm date and time of your appointment if you do not hear from us in the next 4 weeks Call Doctor for: Worsening redness or drainage from your incision lasting longer than 5 days following surgery Any foul-smelling drainage from the incision Fevers greater than 101 degrees F Persistent nausea or vomiting (this may be related to opioid pain medications) Tingling in your hands, feet or around your mouth, or muscle spasms not relieved by calcium supplementation. Phone number for questions: [phone] before 5 PM weekdays [phone] after 5 PM and on weekends/holidays Please follow up with Urology as per their recommendations for Bob removal AttachmentsThe following attachments cannot be sent through Care Everywhere. THYROIDECTOMY: WHAT TO EXPECT AT HOME (TURKMEN)URINARY CATHETER CARE: AFTER YOUR VISIT (TURKMEN)documented in this encounter Medications at Time of Discharge Medication Sig Dispensed Refills Start Date End Date levothyroxine (SYNTHROID) Take 137 mcg by 30 tablet 2 03/2904/30/2014 137 mcg tablet mouth every morning. OXYcodone (ROXICODONE) 5 Take 1-2 tablets by 30 tablet 0 05/16/2013 mg immediate release mouth every 4 hours tablet as needed for Pain. CA CITRATE/MGOX/VIT Take by mouth. 0 1 D3/B6/MIN (CALCIUM CITRATE PLUS ORAL) aspirin 81 mg EC tablet Take 81 mg by mouth 0 01/16/2019 daily. lisinopril Take 20 mg by mouth 0 07/14 (PRINIVIL;ZESTRIL) 20 mg daily. tablet metFORMIN (GLUCOPHAGE) Take 850 mg by mouth 0 07/14/2017 850 mg tablet 2 times daily (with meals). Takes 1 tab in morning, 2 tabs in evening Cholecalciferol, Vitamin Take 1,000 Units by 0 06/05/2015 D3, (VITAMIN D) 1,000 mouth daily. unit Cap rOPINIRole (REQUIP) 2 mg Take 2 mg by mouth 0 05/16/2013 tablet nightly. metoprolol-hydrochlorothi Take 1 tablet by 0 06/05/2015 azide (LOPRESSOR HCT) mouth 2 times daily. 50-25 mg per tablet AMLODIPINE BESYLATE Take by mouth daily. 0 04/05/2013 (AMLODIPINE ORAL) clobetasol (TEMOVATE) Apply twice daily 50 mL 1 013 04/26/2014 0.05 % external for 2 weeks then on solutionIndications: weekends for Psoriasis psoriasis fluocinolone acetonide Twice daily to less 60 mL 2 09/2308/16/2017 (SYNALAR) 0.01 % external severe areas of solutionIndications: psoriasis Psoriasis omeprazole (PRILOSEC) 20 Take 20 mg by mouth 0 06/05/2015 mg capsule daily. glyBURIDE (DIABETA) 5 mg 5MG = 1 Tablet(s), 0 06/05/2015 tablet PO, Once daily documented as of this encounter Progress Notes Radha Chavira RN - 03/29/2013 10:49 AM EDT The patient has met discharge criteria per policy. Discharge instruction reviewed and patient discharged to responsible adult. Patient???s pain level has been assessed and patient states that his/her level is tolerable at this time. The After Visit Summary (AVS) and accompanying hand-outs have been reviewed with the patient; the patient verbalizes understanding at this time. Opportunity for clarification provided. All new medications have been reviewed with the patient and the appropriate hand-outs have been given to the patient. Reportable sign and symptoms have been reviewed with patient. Waldo Castaneda RN - 03/29/2013 4:25 AM EDT Assumed care at 2300, patient's blood sugar still elevated, MD is aware. Denies pain with dressing dry and intact with no facial or nerve paralysis noted. At 0500 Patient was able to ambulate in the hallway, tolerated it well. Rosalino Samuel MD - 03/29/2013 2:19 AM EDT Patient: Gregory Fatima s/p thyroidectomy Patient location: Short stay unit. Post-op pain: Adequate analgesia Post-op nausea: no nausea or vomiting Vital signs: Temp: [36.6 ??C (97.9 ??F)-36.9 ??C (98.4 ??F)] Heart Rate: [83-93] Resp: [18] BP: (153-187)/(71-95) SpO2: [95 %-96 %] AOAx3. NAD RRR CTAB Soft. NT. ND Bob draining cloudy gabi urine. JANUARY serosang. Dressing c/d/i Gregory Fatima is POD 0 Post-op cardiovascular and respiratory status: is stable No immediate issues. Kesha Gracia RN - 03/28/2013 8:52 PM EDT Pt arrived from PACU at 1640 via bed S/P thyroidectomy. Has slight oozing at anterior neck incision,and dressing changed x 1. Medicated for headache with Tylenol 650 mg and for incisional discomfort with Oxycodone 10 mg; meds effective. Bob draining slightly pink-tinged urine. JANUARY at right neck intact. Lungs clear; oxygen sat 94%. No edema. Palpable pulses. SCD's on bilat. Glucose levels have been high this evening and being covered with sliding scale Novolog (see MAR). Cami Baxter RN - 03/28/2013 2:19 PM EDT This note also relates to the following rows which could not be included: Heart Rate - Cannot attach notes to unvalidated device data SpO2 - Cannot attach notes to unvalidated device data 1400) Dr. Bowman from urology here. Normal bob cath unable to pass. 16F Coude catheter passed onsecond attempt by urology. Urine pink with occasional clots noted. Patient feeling relief now that bladder emptying. Blood pressure decreased to 187/86. Bouchra AGUSTIN Cami Baxter RN - 03/28/2013 1:29 PM EDT Pt admitted to pacu, fidgeting in bed, stating he has to go to the bathroom. Pt bladder scanned for 550, and attempted to urinate. Attempted to straight cath pt by 3 diff. Nurses. - resistance hit, with some bloody oozing. 13:55 Urology at bedside placing bob cath. 15:10 MD Gross paged for BP, MD perdue with BP of 185/81- pt may go to floor and receive po meds on the floor. documented in this encounter H&P Notes Mesha Mcknight MD - 03/27/2013 5:23 PM EDT Gregory Fatima is a 68 y.o. male presents to [facility] today for total thyroidectomy. See full Consult Note on 01/25/13. Allergies as of 01/25/2013 ??? (No Known Allergies) No current facility-administered medications on file prior to encounter. Current Outpatient Prescriptions on File Prior to Encounter Medication Status Sig Dispense Refill ??? aspirin 81 mg EC tablet Active Take 81 mg by mouth daily. ??? lisinopril (PRINIVIL;ZESTRIL) 20 mg tablet Active Take 20 mg by mouth daily. ??? metFORMIN (GLUCOPHAGE) 850 mg tablet Active Take 850 mg by mouth 2 times daily (with meals). Takes 1 tab in morning, 2 tabs in evening ??? Cholecalciferol, Vitamin D3, (VITAMIN D) 1,000 unit Cap Active Take 1,000 Units by mouth daily. ??? rOPINIRole (REQUIP) 2 mg tablet Active Take 2 mg by mouth nightly. ??? metoprolol-hydrochlorothiazide (LOPRESSOR HCT) 50-25 mg per tablet Active Take 1 tablet by mouth2 times daily. ??? clobetasol (TEMOVATE) 0.05 % external solution Active Apply twice daily for 2 weeks then on weekends for psoriasis 50 mL 1 ??? fluocinolone acetonide (SYNALAR) 0.01 % external solution Active Twice daily to less severe areas of psoriasis 60 mL 2 ??? omeprazole (PRILOSEC) 20 mg capsule Active Take 20 mg by mouth daily. ??? glyBURIDE (DIABETA) 5 mg tablet Active 5MG = 1 Tablet(s), PO, Once daily ??? ketoconazole (NIZORAL) 2 % shampoo Active 1 Appl(s), Top, Once daily PE: General: Well developed, well nourished 68 y.o. male in NAD. Skin: warm, dry, good turgor, nonicteric. Lungs: Clear BS bilaterally without wheezes, rales or rhonchi. Card: Heart sounds normal, no murmurs, gallops, rubs or S3. Extremities: warm, no edema. Neuro: Awake, alert and oriented x 3., [place]vostek negative bilaterally. 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 Plan: Recommend proceeding with total thyroidectomy. documented in this encounter Procedure Notes Zhen Bowman - 03/28/2013 2:19 PM EDT Urology Procedure Note Procedure: Bob placement Pre-op diagnosis: Difficult bob placement Post-op diagnosis: VICTOR MANUEL Indications: Post op Urinary retention Physicians: Veda Bowman Anesthesia: Lidocaine jelly Urojet Description: Sterile prep and drape of genitals. 16F Coude tip bob passed easily. Clear yellow urine obtained and 10cc's of water placed in balloon. Findings: As above Specimens: None Complications: None Fluids: None EBL: None Drains: 16F bob to gravity Disposition: Given that he had 1200cc in his bladder when the catheter was placed, I would recommendat least 5 days with the Bob catheter. Pt reports no urologic history in his post operative haze. I also saw nothing from our clinic in his chart. He does report nocturia x 1, difficulty initiating first morning void, weak stream, and occasional double voiding. I will arrange for Voiding trial in our clinic in 5-7 days. documented in this encounter Miscellaneous Notes Op Note - Henrique Willams MD - 03/28/2013 3:43 PM EDT [facility] Operative Note Patient Name: Gregory Fatima : [id number] MR#: [id number] Case Date: 03/28/2013 Surgeon: Surgeon(s) and Role: * Mesha Mcknight MD - Primary * Henrique Willams MD - Resident-Surgeon Chief Preoperative diagnosis: MNG Postoperative diagnosis: MNG Procedure(s): THYROIDECTOMY, TOTAL OR COMPLETE FACIAL NERVE MONITORING, SETUP General Estimated Blood Loss: 200cc Drains: 7 JANUARY drain out right neck. Disposition: awakened from anesthesia, extubated and taken to the recovery room in a stable condition, having suffered no apparent untoward event. Condition: doing well without problems (Please see the Surgical Encounter Summary for any Implant and Specimen details pertinent to this patient.) HPI/Surgical Indications: Gregory Fatima is a 68 y.o. male with MNG that was growing. Procedure Description: Findings: Large thyroid gland; bilateral recurrent laryngeal nerves identified. Bilateral superior and inferior parathyroid glands identified Procedure Description: After discussion of the risks and benefits of the surgery, consent was obtained. The patient was taken to the operating room where a timeout procedure verified the correct patient, procedure, and that preoperative antibiotics had been administered. General anesthesia was delivered and the probes for the tracheal tube nerve monitor were secured to the chest. The patient was positioned supine in a low lying beach chair position. A horizontal incision was marked out 5cm in length, approximately 4cm above the sternal notch. 9 cc of 1% lidocaine was then injected into the tissues.The neck was prepped and draped in the standard fashion. An incision was made along the marked line.This was carried down through the platysma. Sub platysmal flaps were raised superiorly and inferiorly. The midline raphe was then incised with Bovie cautery. Dissection of the thyroid gland proceeded with dissection of the strap muscles off the right of the thyroid. The surrounding tissue and vasculature were isolated and ligated with harmonic scalpel as well as with clamp and tie technique. Throughout the dissection, great care was taken to identify the recurrent laryngeal nerve and protect it via both visual inspection and with the recurrent laryngeal nerve monitor. The superior and inferior parathyroid glands were also identified and dissected free of the thyroid tissue so they would not be removed. Once the left lobe of the thyroid was dissected free from its surrounding tissue, attention wasturned to the right lobe of the thyroid in a similar fashion to the strap muscles were dissected offof the thyroid and surrounding tissue was ligated with Harmonic scalpel and the clamp and tie technique. The recurrent laryngeal nerve was identified visually and protected throughout the dissection with assistance of the recurrent laryngeal nerve monitor. Right sided superior and inferior parathyroidglands were also identified and dissected free of thyroid tissue. The final posterior attachments were dissected with Bovie cautery and the thyroid was handed off the table to be sent to pathology. Hemostasis of the wound was checked with a valsalva breath from the ventilator. Surgicel was not placed in the wound, but a #7 JANUARY drain was placed under the strap muscles and brought out through the right side of the neck. Strap muscles were reapproximated with a 4.0 running locking suture. Platysma was re-approximated with a running Monocryl intermittent locking suture. Skin was re-approximated with a running 4.0 Monocryl suture. A clean dry dressing was applied. The patient was awakened and returned to the recovery room. There were no known complications. Dr. Mcknight was present and scrubbed for the entire procedure. The patient was extubated and taken to the [facility] in stable condition. At the end ofthe case all counts were correct. Miscellaneous - Luke, Blake - 03/28/2013 2:12 PM EDT OR Attestation - Mesha Mcknight MD - 03/28/2013 12:36 PM EDT Attestation: Case Date: 03/28/2013 I was present and I participated during the entire procedure (does not need to include opening and closing). MESHA MCKNIGHT MD 03/28/2013 Brief Op Note - Mesha Mcknight MD - 03/28/2013 12:35 PM EDT Brief Operative Note Patient Name: Gregory Fatima : [id number] MR#: [id number] Case Date: 03/28/2013 Surgeon: Surgeon(s) and Role: * Mesha Mcknight MD - Primary * Henrique Willams MD - Resident-Surgeon Chief Preoperative diagnosis: MNG Postoperative diagnosis: MNG Procedure(s): THYROIDECTOMY, TOTAL OR COMPLETE FACIAL NERVE MONITORING, SETUP Anesthesia: General Findings: Binu. RLN identified and preserved. Complications: none Fluids: 1000ml Estimated Blood Loss: 200ml Drains: 7 mm JANUARY Disposition: awakened from anesthesia, extubated and taken to the recovery room in a stable condition, having suffered no apparent untoward event. Condition: doing well without problems (Please see the Surgical Encounter Summary for any Implant and Specimen details pertinent to this patient.) documented in this encounter Plan of Treatment Upcoming Encounters Date Type Specialty Care Team Description 02/19/2022 Laboratory Appointment Lab 02/19/2022 Office Visit Cardiology Liz Poole PA [facility] Cardiology Dept [place], [place] [address] (Wo rk) 03/12/2022 Office Visit Cardiology Vitaliy Nobles MD [facility] CARDIOLOGY [place], [place] [address] (Wo rk) documented as of this encounter Procedures Procedure Name Priority Date/Time Associated Comments Diagnosis POCT GLUCOSE Routine 03/29/2013 8:08 AM Results f or this EDT procedure are i n the results section. POCT GLUCOSE Routine 03/29/2013 4:04 AM Results f or this EDT procedure are i n the results section. POCT GLUCOSE Routine 03/29/2013 1:26 AM Results f or this EDT procedure are i n the results section. POCT GLUCOSE Routine 03/28/2013 11:21 PM Results for this EDT procedure are i n the results section. POCT GLUCOSE Routine 03/28/2013 8:57 PM Results f or this EDT procedure are i n the results section. POCT GLUCOSE Routine 03/28/2013 6:23 PM Results f or this EDT procedure are i n the results section. POCT GLUCOSE Routine 03/28/2013 4:04 PM Results f or this EDT procedure are i n the results section. POCT GLUCOSE Routine 03/28/2013 2:49 PM Results f or this EDT procedure are i n the results section. SPECIMEN TO Routine 03/28/2013 12:14 PM Results for this PATHOLOGY EDT procedure are i n the results section. FROZEN SECTION Routine 03/28/2013 12:03 PM Result s for this REPORT EDT procedure are i n the results section. PATHOLOGY ADDENDUM Routine 03/28/2013 12:03 PM Re sults for this REPORT EDT procedure are i n the results section. SURGICAL PATHOLOGY Routine 03/28/2013 12:03 PM Re sults for this REPORT EDT procedure are i n the results section. POCT GLUCOSE Routine 03/28/2013 12:00 PM Results for this EDT procedure are i n the results section. SPECIMEN TO Routine 03/28/2013 11:58 AM Results for this PATHOLOGY EDT procedure are i n the results section. FACIAL NERVE 03/28/2013 9:55 AM MNG MONITORING, SETUP EDT PERIPHERAL (WRVU 0.54) THYROIDECTOMY, TOTAL 03/28/2013 9:55 AM MNG OR COMPLETE (WRVU EDT 15.04) ABO/RH TYPING STAT 03/28/2013 9:37 AM Results for this EDT procedure are i n the results section. ANTIBODY SCREEN STAT 03/28/2013 9:37 AM Result s for this EDT procedure are i n the results section. DIFFERENTIAL, STAT 03/28/2013 9:34 AM Results for this AUTOMATED EDT procedure are i n the results section. CBC (WITH DIFF) STAT 03/28/2013 9:34 AM Result s for this EDT procedure are i n the results section. BASIC METABOLIC STAT 03/28/2013 9:34 AM Result s for this PANEL (NON-FASTING) EDT procedur e are in the results section. POCT GLUCOSE Routine 03/28/2013 9:17 AM Results f or this EDT procedure are i n the results section. SPECIMEN TO Routine 03/28/2013 8:55 AM Results f or this PATHOLOGY EDT procedure are i n the results section. documented in this encounter Results (ABNORMAL) POCT Glucose (03/29/2013 8:08 AM EDT) athologist Signature POC Glucose 332 (H) 60 - 199 CERNER mg/dL MILLENNIUM Comment: Supplemental ranges: <110 mg/dL before meals <200 mg/dL all other times of the day Specimen Anatomical Collection Method Collection Time Receive d Time (Source) Location / / Volume Laterality Blood specimen 03/29/2013 8:08 AM 013 8:08 (specimen) EDT AM EDT Mesha Mcknight MD POINT OF CARE TEST ORDERABLE S Performing Organization Address City/State/ZIP Code Phon e Number [address] CERNER MILLENNIUM (ABNORMAL) POCT Glucose (03/29/2013 4:04 AM EDT) athologist Signature POC Glucose 247 (H) 60 - 199 CERNER mg/dL MILLENNIUM Comment: Supplemental ranges: <110 mg/dL before meals <200 mg/dL all other times of the day Specimen Anatomical Collection Method Collection Time Receive d Time (Source) Location / / Volume Laterality Blood specimen 03/29/2013 4:04 AM 013 4:04 (specimen) EDT AM EDT Mesha Mcknight MD POINT OF CARE TEST ORDERABLE S Performing Organization Address City/State/[place] [address] CERNER MILLENNIUM (ABNORMAL) POCT Glucose (03/29/2013 1:26 AM EDT) athologist Signature POC Glucose 255 (H) 60 - 199 CERNER mg/dL MILLENNIUM Comment: Supplemental ranges: <110 mg/dL before meals <200 mg/dL all other times of the day Specimen Anatomical Collection Method Collection Time Receive d Time (Source) Location / / Volume Laterality Blood specimen 03/29/2013 1:26 AM 013 1:26 (specimen) EDT AM EDT Mesha Mcknight MD POINT OF CARE TEST ORDERABLE S Performing Organization Address City/State/[place] [address] CERNER MILLENNIUM (ABNORMAL) POCT Glucose (03/28/2013 11:21 PM EDT) athologist Signature POC Glucose 284 (H) 60 - 199 CERNER mg/dL MILLENNIUM Comment: Supplemental ranges: <110 mg/dL before meals <200 mg/dL all other times of the day Specimen Anatomical Collection Method Collection Time Receive d Time (Source) Location / / Volume Laterality Blood specimen 03/28/2013 11:21 3 (specimen) PM EDT 11:21 PM EDT Mesha Mcknight MD POINT OF CARE TEST ORDERABLE S Performing Organization Address City/[facility] [address]/ZIP Code Phon e Number [address] CERNER MILLENNIUM (ABNORMAL) POCT Glucose (03/28/2013 8:57 PM EDT) athologist Signature POC Glucose 273 (H) 60 - 199 CERNER mg/dL MILLENNIUM Comment: Supplemental ranges: <110 mg/dL before meals <200 mg/dL all other times of the day Specimen Anatomical Collection Method Collection Time Receive d Time (Source) Location / / Volume Laterality Blood specimen 03/28/2013 8:57 PM 013 8:57 (specimen) EDT PM EDT Mesha Mcknight MD POINT OF CARE TEST ORDERABLE S Performing Organization Address City/[facility] [address]/ZIP Code Phon e Number [address] CERNER MILLENNIUM (ABNORMAL) POCT Glucose (03/28/2013 6:23 PM EDT) athologist Signature POC Glucose 322 (H) 60 - 199 CERNER mg/dL MILLENNIUM Comment: Supplemental ranges: <110 mg/dL before meals <200 mg/dL all other times of the day Specimen Anatomical Collection Method Collection Time Receive d Time (Source) Location / / Volume Laterality Blood specimen 03/28/2013 6:23 PM 013 6:23 (specimen) EDT PM EDT Mesha Mcknight MD POINT OF CARE TEST ORDERABLE S Performing Organization Address City/State/[place]IP [place] [address] CERNER MILLENNIUM (ABNORMAL) POCT Glucose (03/28/2013 4:04 PM EDT) athologist Signature POC Glucose 317 (H) 60 - 199 CERNER mg/dL MILLENNIUM Comment: Supplemental ranges: <110 mg/dL before meals <200 mg/dL all other times of the day Specimen Anatomical Collection Method Collection Time Receive d Time (Source) Location / / Volume Laterality Blood specimen 03/28/2013 4:04 PM 013 4:04 (specimen) EDT PM EDT Mesha Mcknight MD POINT OF CARE TEST ORDERABLE S Performing Organization Address City/[facility] [address]/ZIP Code Phon e Number [address] CERNER MILLENNIUM (ABNORMAL) POCT Glucose (03/28/2013 2:49 PM EDT) athologist Signature POC Glucose 319 (H) 60 - 199 CERNER mg/dL MILLENNIUM Comment: Supplemental ranges: <110 mg/dL before meals <200 mg/dL all other times of the day Specimen Anatomical Collection Method Collection Time Receive d Time (Source) Location / / Volume Laterality Blood specimen 03/28/2013 2:49 PM 013 2:49 (specimen) EDT PM EDT Mesha Mcknight MD POINT OF CARE TEST ORDERABLE S Performing Organization Address City/[facility] [address]/[place]IP [place] [address] CERNER MILLENNIUM Specimen to Pathology (surgical or derm) (03/28/2013 12:14 PM EDT) Specimen Anatomical Collection Method Collection Time Receive d Time (Source) Location / / Volume Laterality AP Specimen 03/28/2013 12:14 03/28/2013 PM EDT 12:[address] [facility] - 03/28/2013 12:14 PM EDT Specimen requisition ordered. ??Separate Pathology report to follow Mesha Mcknight MD PATHOLOGY/CYTOLOGY ORDERABLE S Performing Organization Address City/State/ZIP [place] [address] [facility] Pathology Addendum Report (03/28/2013 12:03 PM EDT) Component Value Ref Test Analysis Performed At [facility] Range Method Time Signature Addendum [facility] Report ? [facility] ? Provider: ?? MESHA MCKNIGHT Pt. Name: ?? GREGORY FATIMA ? Acc #: ?[id number] ?Pt. MRN: ?[id number] ? Col Date: ?? 03/28/2013 ?/Sex: ?1945,(68 years),Male ? Rec Date: ?? 03/28/2013 ?LOC: ?[facility] ? ADDENDUM REPORT ? ---Addendum Discussion--- ? This addendum documents the information c onveyed during intraoperative ? gross consultation. T he thyroid tissue received for Part A was sectioned, ? and no suspicious nodules were identified durin g gross intraoperative ? consultation; therefore, no frozen section was ? performed. The original diagnoses are unchanged. ? 05/09/13 ? JRP ? 05/09/13 Verified by: ? César STRANGE, Ruben Yusuf ? Pathologist ? (Electronic Si gnature) ? The attending pathologist whose signature appears o n this report has ? reviewed all diagnostic slides and has edited the edita ss and/or ? microscopic portion of the report in rendering the fi nal pathologic ? diagnosis. Specimen (Source) Anatomical Collection Method Collection Time Re ceived Time Location / / Volume Laterality 03/28/2013 12:03 PM EDT Mesha Mcknight MD PATHOLOGY/CYTOLOGY ORDERABLE S Performing Organization Address [facility] [address]/[place]IP [place] [address] [facility] Surgical Pathology Report (03/28/2013 12:03 PM EDT) Component Value Ref Test Analysis Performed At [facility] gist Range Method Time Signature Surgical [facility] Pathology ? [facility] [place] Report ? Provider: ?? MESHA MCKNIGHT Pt. Name: ?? GREGORY FATIMA ? Acc #: ?[id number] ?Pt. MRN: ?[id number] ? Col Date: ?? 03/28/2013 ?/Sex: ?1945,(68 years),Male ? Rec Date: ?? 03/28/2013 ?LOC: ?[facility] ? SURGICAL PATHOLOGY ? ---Pathologic Diagnosis--- ? A - Left lobe of thyroid (99 g), resection: ? Multiple adenomatous nodules (up to 2.7 cm) ? B - Right lobe of thyroid, resection: ? Specimen: ?Right lobectom y ? 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 ? Focality: ?Unifocal (unifocal/multifocal) ? Location(s): ? Right lobe ? Tumor size: ?0.2 cm ? Tumor capsule: ? Unencapsulated ? Vascular/lymphatic invasion: Not identified ? Tumor Necrosis: ?Not identified ? Extrathyroidal invasion: ? Not identified ? Margin ? Uninvolved ? Regional Lymph nodes: ?None present ? TNM STAGING: ? pT1a pNX (AJCC, 7th ed., 2010) ? Other findings: ?Multiple adenomatous nodules (up to 2.7 cm) ? CR-0 ? 03/30/13 ? JRP ? 03/31/13 Verified by: ? César STRANGE, Ruben Yusuf ? Pathologist ? (Electronic Si gnature) ? The attending pathologist whose signature appears o n this report has ? reviewed all diagnostic slides and has edited the edita ss and/or ? microscopic portion of the report in rendering the fi nal pathologic ? diagnosis. ? ---Gross Description--- ? A - Labeled/Fixative: Left lobe of thyroid, fresh. ? Qty./Size/Weight: Single, 8.5 x 6.5 x 3.3 cm, 99 g. ? SPECIMEN DESCRIPTION ? Resection Specimen: Left thyroid lobectomy. ? External Surface: Lobular. ? Parathyroids: Not identified. ? PARENCHYMA: The paren chyma is diffusely nodular, cordova yellow with individual ? nodules measuring up to 2.7 cm. There are several areas of hemorrhage and ? calcifications. ? [facility] ? Provider: ?? MESHA MCKNIGHT Pt. Name: ?? NATALYA GREGORY E ? Acc #: ?[id number] ?Pt. MRN: ?[id number] ? Col Date: ?? 03/28/2013 ?/Sex: ?1945,(68 years),Male ? Rec Date: ?? 03/28/2013 ?LOC: ?[facility] ? SURGICAL PATHOLOGY ? SECTIONS/PROCESSING: Safety Risk Lead sections are subm itted. (R6) ? B - Labeled/Fixative: Right lobe of thyroid, fresh. ? Qty./Size/Weight: Single, 7.7 x 4.3 and 3.3 cm, 39 g. ? SPECIMEN DESCRIPTION ? Resection Specimen: Right thyroid lobectomy. ? External Surface: Irregular and lobular. ? Parathyroids: Not identified. ? PARENCHYMA: The paren chyma is diffusely nodular cordova yellow with individual ? nodules measuring up to 2.7 cm. There are several areas of hemorrhage and ? calcifications. ? SECTIONS/PROCESSING: Representati ve sections are submitted. (R15) ??ejr ? ---Clinical Information--- ? Specimen Submitted: ? A - Left lobe of thyroid for frozen section ? B - Right lobe of thyroid ? Clinical History: ? MNG ? Clinical Diagnosis: ? Same Specimen (Source) Anatomical Collection Method Collection Time Re ceived Time Location / / Volume Laterality 03/28/2013 12:03 PM EDT Mesha Mcknight MD PATHOLOGY/CYTOLOGY ORDERABLE S Performing Organization Address City/State/ZIP [place] [address] CERNER MILLENNIUM Frozen Section Report (03/28/2013 12:03 PM EDT) Component Value Ref Test Analysis Performed At [facility] Range Method Time Signature Frozen CERNER Section ? [facility] ? Provider: ?? MESHA MCKNIGHT Pt. Name: ?? GREGORY FATIMA ? Acc #: ?[id number] ?Pt. MRN: ?[id number] ? Col Date: ?? 03/28/2013 ?/Sex: ?1945,(68 years),Male ? Rec Date: ?? 03/28/2013 ?LOC: ?[facility] ? FROZEN SECTION REPORT ? ---Frozen Section Report--- ? Part A - Intraoperati ve gross consultation was performed. ??The case was ? discussed by phone with Dr. Mcknight, and no frozen ? section was performed. ? 03/31/13 ??Verified by: ??César STRANGE, Ruben Yusuf, Sowmya gist ? The attending [facility] gist whose electronic signature appears on this report ? has reviewed all diagnostic slides in rendering the f rozen section ? diagnosis. ? This intraoperative consultation should be interpreted as a preliminary ? diagnosis pending review of the e ntire specimen and special studies, if ? any. Specimen (Source) Anatomical Collection Method Collection Time Re ceived Time Location / / Volume Laterality 03/28/2013 12:03 PM EDT Mesha Mcknight MD PATHOLOGY/CYTOLOGY ORDERABLE S Performing Organization Address City/[facility] [address]/ZIP Code Phon e Number [address] [facility] MILLENNIUM POCT Glucose (03/28/2013 12:00 PM EDT) P athologist Signature POC Glucose 134 60 - 199 CERNER mg/dL [facility] Comment: Supplemental ranges: <110 mg/dL before meals <200 mg/dL all other times of the day Specimen Anatomical Collection Method Collection Time Receive d Time (Source) Location / / Volume Laterality Blood specimen 03/28/2013 12:00 3 (specimen) PM EDT 12:00 PM EDT Mesha Mcknight MD POINT OF CARE TEST ORDERABLE S Performing Organization Address [facility] [address]/ZIP Code Phon e Number BARBAR[place] [address] [facility] Specimen to Pathology (surgical or derm) (03/28/2013 11:58 AM EDT) Specimen Anatomical Collection Method Collection Time Receive d Time (Source) Location / / Volume Laterality AP Specimen 03/28/2013 11:58 03/28/2013 AM EDT 11:58 AM EDT [facility] 11[facility]58 AM EDT Specimen requisition ordered. ??Separate Pathology report to follow Mesha Mcknight MD PATHOLOGY/CYTOLOGY ORDERABLE S Performing Organization Address City/[facility] [address]/ZIP Code [place] [address] [facility] Antibody screen (03/28/2013 9:37 AM EDT) Analysis Performed At Patho logist Time Signature Ab Screen Negative [facility] Interp [facility] Expires at [phone] [facility] [id number] on: MILLENNIUM Specimen Anatomical Collection Method Collection Time Receive d Time (Source) Location / / Volume Laterality Blood specimen 03/28/2013 9:37 AM 013 9:37 (specimen) EDT AM EDT Resulting Agency Comment Spec In Lab Mesha Mcknight MD BLOOD BANK ORDERABLES Performing Organization Address City/State/ZIP Code Phon e Number [address] CERNER MILLENNIUM ABO/Rh Typing (03/28/2013 9:37 AM EDT) athologist Signature ABORh Type O Pos CERNER MILLENNIUM Specimen Anatomical Collection Method Collection Time Receive d Time (Source) Location / / Volume Laterality Blood specimen 03/28/2013 9:37 AM 013 9:37 (specimen) EDT AM EDT Resulting Agency Comment Spec In Lab Mesha Mcknight MD BLOOD BANK ORDERABLES Performing Organization Address City/State/ZIP Code Phon e Number [address] CERNER MILLENNIUM Differential, Automated (03/28/2013 9:34 AM EDT) athologist Signature Neutrophils % 69.8 34.0 - CERNER 71.0 % MILLENNIUM Neutr Abs (ANC) 3.60 1.50 - CERNER 6.30 MILLENNIUM x10(3)/mcL Lymphocytes % 20.4 19.0 - CERNER 53.0 % MILLENNIUM Lymphocytes Abs 1.0 1.0 - 3.6 CERNER x10(3)/mcL MILLENNIUM Monocytes % 8.2 4.0 - 13.0 CERNER % MILLENNIUM Monocyte Abs 0.4 0.2 - 1.0 CERNER x10(3)/mcL MILLENNIUM Eosinophils % 0.8 0.0 - 7.0 CERNER % MILLENNIUM Eosinophils Abs 0.0 0.0 - 0.5 CERNER x10(3)/mcL MILLENNIUM Basophils % 0.4 0.0 - 2.0 CERNER % MILLENNIUM Basophils Abs 0.0 0.0 - 0.2 CERNER x10(3)/mcL MILLENNIUM Immature Gran % 0.40 0.00 - CERNER 0.66 % MILLENNIUM Comment: Immature granulocytes(IG's)percentage an d absolute count will include metamyelocytes, myelocytes, and promyelo cytes. Blood smears from CBCs yielding IG's will be scanned manually for concsarahy danhaley. If this scan disagrees with the automated IG or if promyelocytes are not ed, a manual differential will be performed. Melisa Gran Abs 0.02 0.00 - 0.05 x10(3)/mcL CER NER MILLENNIUM Specimen Anatomical Collection Method Collection Time Receive d Time (Source) Location / / Volume Laterality Blood specimen 03/28/2013 9:34 AM 013 9:38 (specimen) EDT AM EDT Mesha Mcknight MD HEMATOLOGY ORDERABLES Performing Organization Address City/State/[place] [address] CERNER MILLENNIUM (ABNORMAL) Basic Metabolic Panel (non-fasting) (03/28/2013 9:34 AM EDT) athologist Signature Glucose Lvl 105 60 - 199 CERNER mg/dL MILLENNIUM Comment: Diabetes: >=200 mg/dL plus symp toms BUN 11 10 - 20 mg/dL CERNER MILLENNIU M Creatinine 0.94 0.80 - 1.50 mg/dL CERNER MILL ENNIUM Comment: Please note that the pediatric reference intervals supplied above were not validated at [facility]. Results from pediatri c patients should be interpreted in conjunction to the patient's age, height and muscle mass. Sodium 140 135 - 145 mmol/L CERNER TOSHA NIUM Potassium 4.3 3.5 - 5.0 mmol/L CERNER TOSHA NIUM Comment: Please note: ??Patients with WBC >100,00 0 may have falsely elevated Potassium levels. ??For accurate Potassium quantif ication in these patients send serum separator tube (gold top) for subsequent determinations. ??Contact the Clinical Chemistry Laboratory if there are any qu estions. Chloride 101 98 - 107 mmol/L CERNER MILLENN IUM CO2 28 22 - 31 mmol/L CERNER MILLENNI UM Anion Gap 11 5 - 15 mmol/L CERNER MILLENNIU M Calcium 10.7 (H) 8.5 - 10.5 mg/dL CERNER TOSHA NIUM Estimated GFR >60 >=60 CERNER MILLENNIU M Comment: This estimated GFR (eGFR) value was calc ulated using the MDRD equation which has been validated on patients between t he ages of 18 and 70. The MDRD should not be used to assess kidney function in patients < 18 years of age or in patients with extremes of body mass, or in patients with acute kidney failure. This value should be multiplied by 1.2 f or patients. For further information please copy and past e the following links into your internet browser. http://www.nkdep.nih.gov/lab-evaluation. shtml http://www.kidney.org/professionals/ Specimen Anatomical Collection Method Collection Time Receive d Time (Source) Location / / Volume Laterality Blood specimen 03/28/2013 9:34 AM 013 9:34 (specimen) EDT AM EDT Resulting Agency Comment Spec In Lab Mesha Mcknight MD CHEMISTRY ORDERABLES Performing Organization Address City/State/ZIP [place] [address] CERNER MILLENNIUM (ABNORMAL) CBC (with Diff) (03/28/2013 9:34 AM EDT) P athologist Signature WBC 5.2 4.0 - 10.0 CERNER x10(3)/mcL MILLENNIUM RBC 4.69 4.63 - CERNER 6.08 MILLENNIUM x10(6)/mcL Hemoglobin 13.6 (L) 13.7 - CERNER 17.5 gm/dL MILLENNIUM Hematocrit 40.3 40.0 - CERNER 51.0 % MILLENNIUM MCV 85.9 79.0 - CERNER 92.0 fL MILLENNIUM MCH 29.0 25.6 - CERNER 32.2 pg MILLENNIUM MCHC 33.7 32.0 - CERNER 36.5 gm/dL MILLENNIUM Platelets 161 145 - 370 CERNER x10(3)/mcL MILLENNIUM RDWSD 43.7 35.0 - CERNER 46.0 fL MILLENNIUM RDWCV 14.2 10.9 - CERNER 14.4 % MILLENNIUM MPV 9.3 9.0 - 12.0 CERNER fL MILLENNIUM Specimen Anatomical Collection Method Collection Time Receive d Time (Source) Location / / Volume Laterality Blood specimen 03/28/2013 9:34 AM 013 9:38 (specimen) EDT AM EDT Resulting Agency Comment Spec In Lab Mesha Mcknight MD HEMATOLOGY ORDERABLES Performing Organization Address City/State/ZIP [place] [address] CERNER MILLENNIUM POCT Glucose (03/28/2013 9:17 AM EDT) P athologist Signature POC Glucose 108 60 - 199 CERNER mg/dL [facility] Comment: Supplemental ranges: <110 mg/dL before meals <200 mg/dL all other times of the day Specimen Anatomical Collection Method Collection Time Receive d Time (Source) Location / / Volume Laterality Blood specimen 03/28/2013 9:17 AM 013 9:17 (specimen) EDT AM EDT Mesha Mcknight MD POINT OF CARE TEST ORDERABLE S Performing Organization Address City/[facility] [address]/ZIP Code Phon e Number [address] RAKESH CARVALHOIUM Specimen to Pathology (surgical or derm) (03/28/2013 8:55 AM EDT) Specimen Anatomical Collection Method Collection Time Receive d Time (Source) Location / / Volume Laterality AP Specimen 03/28/2013 8:55 AM 3 8:54 EDT AM EDT Narrative CERNER MILLENNIUM - 03/28/2013 8:55 AM E DT Specimen requisition ordered. ??Separate Pathology report to follow Mesha Mcknight MD PATHOLOGY/CYTOLOGY ORDERABLE S Performing Organization Address City/State/ZIP [place] [address] CERKERI CARVALHOIUM documented in this encounter Visit Diagnoses Diagnosis Psoriasis - Primary Other psoriasis documented in this encounter Administered Medications Inactive Administered Medications - up to 3 most recent administrations Medication Order MAR Action Action Date Dose Rate Site acetaminophen (TYLENOL) tablet 650 Given 03/29/2013 7:38 AM EDT 650 mg mg 650 mg, Oral, EVERY 4 HOURS PRN, Starting on Wed03/28/13 at 1247, Until Wed03/29/13 at 1311, Pain, Maximum dose of acetaminophen is 4000 mg from all sources in 24 hours., Routine Given 03/28/2013 9:59 PM EDT 650 mg Given 03/28/2013 5:29 PM EDT 650 mg amlodipine (NORVASC) tablet 2.5 mg Given 03/29/2013 9:00 AM EDT 2.5 mg 2.5 mg, Oral, DAILY, First dose on Wed03/28/13 at 1530, Until Discontinued Given 03/28/2013 4:05 PM EDT 2.5 mg ceFAZolin (ANCEF) 2g in dextrose 5% 50 m L Given 03/29/2013 4:00 AM EDT 2 g 2 g, Intravenous, EVERY 8 HOURS, 2 doses, First dose (after last reorder) on Wed03/28/13 at 2000, Last dose on Wed03/29/13 at 0400, Indication for (Active or Suspected): Prophylaxis Given 03/28/2013 8:00 PM EDT 2 g cholecalciferol (Vitamin D3) tablet Given 03/29/2013 9:00 AM EDT 1,000 Units 1,000 Units 1,000 Units, Oral, DAILY, First dose on Wed03/29/13 at 0900, Until Discontinued, Routine esomeprazole (NEXIUM) injection 20 mg Given 03/29/2013 9:00 AM EDT 20 mg 20 mg, Intravenous, DAILY, First dose on Wed03/29/13 at 0900, Until Discontinued flu vacc (36 mos+) (PF) (FLUZONE) 45 Given 03/29/2013 10:07 AM E DT 0.5 mLs mcg/0.5 mL IM injection 0.5 mL 0.5 mL, Intramuscular, PRIOR TO DISCHARGE, 1 dose, Starting on Wed03/29/13 at 0735, Until Wed03/29/13 at 1007, Per Protocol, Hold for fever greater than 38.9C, Routine glyBURIDE (DIABETA) tablet 5 mg Given 03/29/2013 9:00 AM EDT 5 mg 5 mg, Oral, DAILY, First dose on Wed03/29/13 at 0900, Until Discontinued, Routine hydrochlorothiazide (HYDRODIURIL) tablet 25 mg Given 03/29/2013 9:00 AM EDT 25 mg 25 mg, Oral, 2 TIMES DAILY, First dose on Wed03/28/13 at 1545, Until Discontinued, Routine Given 03/28/2013 4:05 PM EDT 25 mg HYDROmorphone (DILAUDID) injection 0.2-0 .4 mg Given 03/28/2013 2:20 PM EDT 0.4 mg 0.2-0.4 mg, Intravenous, EVERY 5 MIN PRN, Starting on Wed03/28/13 at 1249, Until Wed03/28/13 at 1636, Pain, For moderate pain give: 0.2 mg every 5 minute prn For severe pain give: 0.4 mg every 5 minutes prn Maximum dose: 4 mg per hour Hold for respiratory rate less than 10 per minute., PACU Recovery, Routine Given 03/28/2013 1:41 PM EDT 0.4 mg Given 03/28/2013 1:36 PM EDT 0.2 mg insulin aspart (NOVOLOG) PEN injection 1-4 Given 03/29/2013 7:30 AM EDT 8 Units Units 1-4 Units, Subcutaneous, 4 TIMES DAILY BEFORE MEALS & NIGHTLY, First dose on Wed03/28/13 at 1630, Until Discontinued, CORRECTION BOLUS Sensitive to insulin lean patient or total daily dose of all insulin needed to achieve glycemic control less than 30 units BG 140 - 160 Give 2 unit BG 161 - 200 Give 4 units [...] insulin and resume prior schedule., Routine Given 03/28/2013 11:22 PM EDT 4 Units Given 03/28/2013 9:00 PM EDT 4 Units Right Arm labetalol (NORMODYNE;TRANDATE) injection 10 mg Given 03/28/2013 1:37 PM EDT 10 mg 10 mg, Intravenous, EVERY 1 HOUR PRN, Starting on Wed03/28/13 at 1317, Until Wed03/28/13 at 1636, High Blood Pressure, SBP > 160. , PACU Recovery, Routine lactated ringers infusion 1,000 mL New Bag 03/28/2013 10:03 AM EDT mL 1,000 mL, at 100 mL/hr, Intravenous, CONTINUOUS, Starting on Wed03/28/13 at 0900, Until Wed03/28/13 at 1715, Day of Surgery (Day of Procedure) New Bag 03/28/2013 9:20 AM EDT 1,000 mLs 100 mL/hr lactated ringers infusion New Bag 03/29/2013 12:53 AM EDT 100 mL/hr 100 mL/hr 100 mL/hr, Intravenous, CONTINUOUS, Starting on Wed03/28/13 at 1500, Until Wed03/29/13 at 1311 New Bag 03/28/2013 3:00 PM EDT 100 mL/hr 100 mL/hr levothyroxine (SYNTHROID) tablet 137 mcg Given 03/29/2013 5:29 AM EDT 137 mcg 137 mcg, Oral, EVERY MORNING, First dose on Wed03/29/13 at 0600, Until Discontinued, Routine lidocaine HCl (URO-JET) 2 % gel Given 03/28/2013 2:05 PM EDT 1 Bottle 1 dose, Starting on Wed03/28/13 at 1405, Until Wed03/28/13 at 1405, MARQUES SOW: cabinet override lisinopril (PRINIVIL;ZESTRIL) tablet 20 mg Given 03/29/2013 9:00 AM EDT 20 mg 20 mg, Oral, DAILY, First dose on Wed03/28/13 at 1530, Until Discontinued, Routine Given 03/28/2013 7:42 PM EDT 20 mg metFORMIN (GLUCOPHAGE) tablet 850 mg Given 03/29/2013 8:00 AM EDT 850 mg 850 mg, Oral, 2 TIMES DAILY WITH MEALS, First dose on Wed03/29/13 at 0800, Until Discontinued, Routine metoprolol tartrate (LOPRESSOR) tablet 5 0 mg Given 03/29/2013 9:00 AM EDT 50 mg 50 mg, Oral, EVERY 12 HOURS SCHEDULED (2 times per day), First dose on Wed03/28/13 at 1545, Until Discontinued, Routine Given 03/28/2013 5:00 PM EDT 50 mg OXYcodone (ROXICODONE) immediate release Given 03/28/2013 7:21 P M EDT 10 mg tablet 5-10 mg 5-10 mg, Oral, EVERY 4 HOURS PRN, Starting on Wed03/28/13 at 1247, Until Wed03/29/13 at 1311, Pain, Routine sodium chloride 0.9 % flush 5 mL Given 03/29/2013 9:00 AM EDT 5 mLs 5 mL, Intravenous, EVERY 12 HOURS, First dose on Wed03/28/13 at 0900, Until Discontinued Given 03/28/2013 9:00 PM EDT 5 mLs documented in this encounter Active and Recently Administered Medications Times are shown in EDT. Scheduled Medication Order 03/27/2013 03/28/2013 03/29/2013 amlodipine (NORVASC) tablet 2.5 mg (CANCELED) 1605 (Given - Provider: Angela Breaux RN) 0900 (Given - Provider: Radha Yao oumar, RN) 2.5 mg, Oral, DAILY, First dose on Wed03/28/13 at 1530, Until Dis continued ceFAZolin (ANCEF) 2g in dextrose 5% 50 mL (CANCELED) 09 (Not Given - Provider: Cami Baxter RN - Reason: See comment - Comment: scheduled for 18:00)1027 (Given - Provider: Tessa Rice)1200 (Not Given - Provider: Cami Baxter RN - Reason: See comment - Comment: in OR. given at d 2 g, Intravenous, EVERY 3 HOURS, First d ose on Wed03/28/13 at 0900, Until Discontinued, Intra-Operative (Intra-Procedure), Indication (Active or Suspected): Prophylaxis iff. time.)1500 (Not Given - Provider: Cami Baxter RN - Reason: See comment - Comment: intra op dosing) ceFAZolin (ANCEF) 2g in dextrose 5% 50 mL (COMPLETED) 1999 (Given - Provider: Kesha Gracia RN) 0400 (Given - Provider: Waldo covington RN) 2 g, Intravenous, EVERY 8 HOURS, 2 doses , First dose on Wed03/28/13 at 2000, Last dose on Wed03/29/13 at 0400, Indication (Active or Suspected): Prophylaxis cholecalciferol (Vitamin D3) tablet 1,000 Units (CANCELED) 0900 (Given - Provider: Radha Chavira RN) 1,000 Units, Oral, DAILY, First dose on Wed03/29/13 at 0900, Until Discontinued, Routine esomeprazole (NEXIUM) injection 20 mg (CANCELED) 0900 (Given - Provider: Radha Chavira RN) 20 mg, Intravenous, DAILY, First dose on Wed03/29/13 at 0900, Until Discontinued, Routine glyBURIDE (DIABETA) tablet 5 mg (CANCELED) 0900 (Given - Provider: Radha Chavira RN) 5 mg, Oral, DAILY, First dose on 03/29 at 0900, Until Discontinued, Routine hydrochlorothiazide (HYDRODIURIL) tablet 25 mg (CANCELED) 1605 (Given - Provider: Angela Breaux RN) 0900 (Given - Provider: Radha christine RN) 25 mg, Oral, 2 TIMES DAILY, First dose o n Wed03/28/13 at 1545, Until Discontinued, Routine insulin aspart (NOVOLOG) PEN injection 1-4 Units (CANCELED) 1630 (Given - Provider: Cami Baxter RN - Comment: waiting for order)1827 (Given - Provider: Kesha Gracia RN)2100 (Given - Provider: Kesha Gracia, VAMSI)2322 (Given - Provider: Waldo Castaneda RN) 0730 (Given - Provider: Radha Chavira RN) 1-4 Units, Subcutaneous, 4 TIMES DAILY B EFORE MEALS & NIGHTLY, First dose on Wed03/28/13 at 1630, Until Discontinued, CORRECTION BOLUS Sensitive to insulin lean patient or total daily dose of all insulin needed to achieve glycemic cont rol less than 30 units BG 140 - 160 Give 2 unit BG 161 - 200 Give 4 units BG 201 - 240 Give 6 units BG greater than 240, give 8 units and recheck BG in 2 hours. I f BG remains greater than 240, repeat 4 units (no more than three times) & call for new basal insulin orders. If less than 240 after two hours, give no insulin and resume prior schedule., Routine levothyroxine (SYNTHROID) tablet 137 mcg 0529 (Given - Provider: Waldo Castaneda RN) 137 mcg, Oral, EVERY MORNING, First dose on Wed03/29/13 at 0600 lisinopril (PRINIVIL;ZESTRIL) tablet 20 mg (CANCELED) 1942 (Given - Provider: Kesha Gracia RN) 0900 (Given - Provider: Radha christine RN) 20 mg, Oral, DAILY, First dose on 10/05 at 1530, Until Discontinued, Routine metFORMIN (GLUCOPHAGE) tablet 850 mg (CANCELED) 0800 (Given - Provider: Radha Chavira RN) 850 mg, Oral, 2 TIMES DAILY WITH MEALS, First dose on Wed03/29/13 at 0800, Until Discontinued, Routine metoprolol tartrate (LOPRESSOR) tablet 50 mg (CANCELED) 1700 (Given - Provider: Kesha Gracia RN) 0900 (Given - Provider: Radha christine RN) 50 mg, Oral, EVERY 12 HOURS SCHEDULED (2 times per day), First dose on Wed03/28/13 at 1545, Until Discontinued, Routine sodium chloride 0.9 % flush 5 mL (CANCELED) 0900 (Not Given - Provider: Cami Baxter RN - Reason: Transfer to a Procedural area)2100 (Given - Provider: Kesha Gracia RN) 0900 (Given - Provider: Radha christine RN) 5 mL, Intravenous, EVERY 12 HOURS, First dose on Wed03/28/13 at 0900, Until Discontinued, Routine Continuous Medication Order 03/27/2013 03/28/2013 03/29/2013 lactated ringers infusion 1,000 mL (CANCELED) 0920 (New Bag - Provider: Elizabeth Ferrer RN)1003 (New Bag - Provider: Tessa Rice)1120 (Anesthesia Volume Adjustment - Provider: Tessa Rice)1247 (Anesthesia Volume Adjustment - Provider: Tessa Rice) 1,000 mL, at 100 mL/hr, Intravenous, CON TINUOUS, Starting Wed03/28/13 at 0900, Until Wed03/28/13 at 1715, Day of Surgery (Day of Procedure) lactated ringers infusion (CANCELED) 150 0 (New Bag - Provider: Cami Baxter RN) 0053 (New Bag - Provider: Waldo garcia RN) 100 mL/hr, at 100 mL/hr, Intravenous, CO NTINUOUS, Starting Wed03/28/13 at 1500, Until Wed03/29/13 at 1311 PRN Medication Order 03/27/2013 03/28/2013 03/29/2013 acetaminophen (TYLENOL) tablet 650 mg (CANCELED) 1729 (Given - Provider: Kesha Gracia RN - Comment: c/o headache)2159 (Given - Provider: Kesha Gracia RN - Comment: c/o headache) 0738 (Given - Provider: Radha Yao VAMSI oseguera) 650 mg, Oral, EVERY 4 HOURS PRN, Startin g Wed03/28/13 at 1247, Until Wed03/29/13 at 1311, Pain, Maximum dose of acetaminophen is 4000 mg from all sources in 24 hours., Routine BUpivacaine-epiNEPHrine 0.25 %-1:200,000 injection (CANCELED ) 1046 (Given - Provider: Mesha Mcknight MD) ONCE PRN, Starting Wed03/28/13 at 1046, U ntil Wed03/28/13 at 1637, Intra-Operative (Intra-Procedure), Routine flu vacc (36 mos+) (PF) (FLUZONE) 45 mcg/0.5 mL IM inj ection 0.5 mL (COMPLETED) 1007 (Given - Provider: Sandra Chavira RN) 0.5 mL, Intramuscular, PRIOR TO DISCHARG E, 1 dose, Starting Wed03/29/13 at 0735, Until Discontinued, Per Protocol, Hold for fever greater than 38.9C, Routine HYDROmorphone (DILAUDID) injection 0.2-0.4 mg (CANCELED) 1336 (Given - Provider: Cami Baxter RN)1341 (Given - Provider: Angela Breaux RN)1420 (Given - Provider: Cami Baxter RN) 0.2-0.4 mg, Intravenous, EVERY 5 MIN PRN , Starting Wed03/28/13 at 1249, Until Wed03/28/13 at 1636, Pain, For moderate pain give: 0.2 mg every 5 minute prn For severe pain give: 0.4 mg every 5 minutes prn Maximum dose: 4 mg per hour Hold for res piratory rate less than 10 per minute., PACU Recovery, Routine labetalol (NORMODYNE;TRANDATE) injection 10 mg (CANCELED) 1337 (Given - Provider: Cami Baxter, VAMSI) 10 mg, Intravenous, EVERY 1 HOUR PRN, St arting Wed03/28/13 at 1317, Until Wed03/28/13 at 1636, High Blood Pressure, SBP > 160. , PACU Recovery, Routine OXYcodone (ROXICODONE) immediate release tablet 5-10 mg 1921 (Given - Provider: Kesha Gracia, VAMSI) 5-10 mg, Oral, EVERY 4 HOURS PRN, Starti ng Wed03/28/13 at 1247, Until Wed03/29/13 at 1311, Pain, Routine No Frequency Medication Order 03/27/2013 03/28/2013 03/29/2013 lidocaine HCl (URO-JET) 2 % gel (COMPLETED) 1405 (Given - Provider: Angela Breaux RN - Comment: given by dr. bowman when inserting catheter) 1 dose, Starting Wed03/28/13 at 1405, Unt il Wed03/29/13 at 0214, MARQUES SOW: cabinet override documented in this encounter Care Teams Machine Repairman Relationship Specialty Start Date End Date Angela Holliday APRN PCP - General 01/25/13 04/15/15 [address] [place] [address] documented as of this encounter
--- OUTSIDE RECORDS SUMMARY | 2022-02-06 13:41 | XMS_ITS | Encounter Summary ---
:1945 Author Organization [facility] [place] [address] Care Team Providers Name Role Phone Adi Costello MD Primary Care Provider Reason for Visit Reason Comments Annual Exam ckeck his groin and melanoma follow-up Encounter Details Date Type Department Care Team Description 11/21/2010 Follow-Up Dermatology Arik Tipton Melanoma (Primary Dx) [facility] MD [place] [phone] DERMATOLOGY DEPT . [place] [id number] (Wo rk) Social History Tobacco Use Types Packs/Day Years Used Date Former Smoker Alcohol Use Standard Drinks/Week Comments No 0 (1 standard drink = 0.6 oz pure alcoho l) Sex Assigned at Date Recorded Not on file documented as of this encounter Progress Notes Arik Tipton - 11/21/2010 10:17 AM EDT DERMATOLOGY NOTE Date of service: 11/21/2010 Don Fatima : 1945 Provider: Arik Tipton MD PROBLEM: Melanoma follow-up. HPI Don Fatima is a 65 y.o. 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 His only complaints are leg cramps, skin fragility, and rash in scalp. He also has hada brain scan and carotid scans following episode of near syncope. He cut back on his aspirin from 325 to 81, and the bleeding spots on the dorsa of his hands seized. He tried tonic water, which did nothelp his leg cramps. concerned that mole in pubic area has developped a tail PAST MEDICAL HX: SOCIAL HX: FAMILY HX: ADR: No Known Allergies MEDS: Current outpatient prescriptions ordered prior to encounter Medication Sig Dispense Refill ??? CIS Free Text Med - Aspirin ??? metFORMIN (GLUCOPHAGE) 850 mg tablet 850MG = 1 Tablet(s), PO, Twice daily ??? glyBURIDE (DIABETA) 5 mg tablet 5MG = 1 Tablet(s), PO, Once daily ??? ketoconazole (NIZORAL) 2 % shampoo 1 Appl(s), Top, Once daily ??? metoprolol tartrate (LOPRESSOR) 50 mg tablet 50mg, PO, Once daily ??? Betamethasone Valerate (LUXIQ) 0.12 % Foam 1 Appl(s), Top, as directed ??? lisinopril (PRINIVIL;ZESTRIL) 10 mg tablet ??? fluocinolone acetonide (SYNALAR) 0.01 % external solution apply to scalp Top Twice daily ??? DISCONTD: niacin 100 mg tablet ROS General: feeling well Skin: denies other skin complaints EXAM General: NAD, pleasant, cooperative Skin:The entire skin surface was examined, including the face, neck, chest, abdomen, back. The arms and legs, including the palms, soles, fingers and between the toes. No lymphadenopathy, including the supraclavicular, cervical, axillary, and inguinal areas. Melanoma excision site scar was examined and palpated. There was no increase in pigmentation or induration at this site. Significant skin findings: A.0.3 x 0.7 cm with tag located on left pubis.0.5cm, medium-brown, evenly- pigmented macule on back. All with regular pigment pattern on dermoscopy. No pigmented lesions suspicious for melanoma. B 0.3 cm brown papules with waxy scale on right nipple and 0.8cm midline of back stuck on appearance. Milia-like cysts, comedone-like openings and/or fissuring on dermoscopy. C.second left toe has Three quarters of the proximal nail has dark and red,obvious blood ASSESSMENT/PLAN: A.Benign appearing nevi with even pigmentation and well defined margins are noted. B. Seborrheic keratoses C. Trauma No new cancers or reoccurrences. Prescriptions:none Return to clinic: in one year Note initiated by: ERIC ANDERSON RN Routed to physician for review and changes: Arik Tipton MD Section of Dermatology [facility] documented in this encounter Plan of Treatment Upcoming Encounters Date Type Specialty Care Team Description 02/19/2022 Laboratory Appointment Lab 02/19/2022 Office Visit Cardiology Liz Poole PA [facility] er Cardiology Dept [place], [place] [address] (Wo rk) 03/12/2022 Office Visit Cardiology Vitaliy Nobles MD [facility] ER CARDIOLOGY [place], [place] [address] (Wo rk) documented as of this encounter Visit Diagnoses Diagnosis Melanoma - Primary Melanoma of skin, site unspecified documented in this encounter Care Teams Counselor Camp Relationship Specialty Start Date End Date Adi Costello MD PCP - General 06/17/10 09/21/11 [address] [place] [address] documented as of this encounter
--- OUTSIDE RECORDS SUMMARY | 2022-02-06 13:41 | XMS_ITS | Encounter Summary ---
:1945 Author Organization [facility] Address [facility] [address] [place] [address] Care Team Providers Name Role Phone Unknown Primary Care Provider Unavailable Reason for Visit Reason Comments Skin Check Encounter Details Date Type Department Care Team Description 10/04/2012 Follow-Up Dermatology at [facility] Forman soriasis (Primary Dx); Abdelrahman [place] MD Neoplasm of unspecified nature of bone, soft tissue, and skin; [address] [facility] Skin lesion of chest wall; [place] [phone] Seborrheic psoriasis- scalp and ingtergl uteal area [phone] [facility] [place], [place] [address] (Wo rk) Social History Tobacco Use Types Packs/Day Years Used Date Former Smoker Alcohol Use Standard Drinks/Week Comments No 0 (1 standard drink = 0.6 oz pure alcoho l) Sex Assigned at Date Recorded Not on file documented as of this encounter Progress Notes Ginny Christiansen LPN - 10/04/2012 9:39 AM EDT Images from the original note were not included. DERMATOLOGY ESTABLISHED PATIENT CLINIC NOTE Date of service: 10/04/2012 Don Hoang : 1945 Provider: Rigoberto Albarran MD PROBLEM: annual melanoma skin cancer screening SKIN HISTORY: 0.98 mm with a Ede Level IV, high on his mid back in 2006 psoriasis PATIENT SCREENING QUESTIONS DO YOU HAVE A PACEMAKER OR DEFIRILLATOR? no DO YOU HAVE ARTIFICIAL JOINTS? no Less than 2 year old? DO YOU HAVE AN ARTIFICIAL HEART VALVE? no What blood thinner do you take? no Do you take antibiotics before procedures?no HPI Don Hoang is a 67 y.o. year old male. He is here for a full skin exam and has no concerns. He is a new patient to me seen previously by Dr. Tipton. He had a spot on his leg that was crusty and he picked it, applied bag balm and it healed and went away. ADR: No Known Allergies ROS General: feeling well Skin: denies other skin complaints EXAM General: NAD, pleasant, cooperative male. The entire skin surface was examined, including the face, neck, chest, abdomen, back. The arms and legs, including the palms, soles, fingers and between the toes. No lymphadenopathy, including the supraclavicular, cervical, axillary, and inguinal areas. Melanoma excision site scar was examined and palpated. There was no increase in pigmentation or induration at this site. Skin: Significant skin findings: A. Mild erythema with light scale on right parietal scalp- history of seborrhea or psoriasis on the right scalp. He uses Synalar at times. B. Left mid chest - 5 mm irregularly pigmented papule, deeply pigmented with variation in pigment ondermoscopy. ASSESSMENT/PLAN: A. Psoriasis- right scalp - I discussed this condition with the patient and explored therapeutic options. I recommended applying Clobetasol solution twice daily for 2 weeks then on weekends as needed. He can continue to use Synalar on the weekdays if needed. He has a plaque in the gluteal cleft as well and likes to apply the Synalar solution to that. This seems to work well. He uses it intermittently. He can continue to do this, but if it fails to respond,or if he is needed it daily, he will call. B. SK vs nevus r/o -left mid chest - I discussed this condition with the patient and explored therapeutic options. I recommended a shave biopsy for a firm diagnosis and he agreed. Procedure: Skin biopsy. Location: left mid chest Discussed indications for procedure and expectations including risks and benefits. Verbal consent obtained. Skin prep with alcohol. Local anesthesia with 1% xylocaine, 1/100,000 epinephrine, 0.1 mEq/mLbicarbonate. A sample of the lesion was removed by shave technique to the level of the dermis and submitted to Pathology. Hemostasis obtained (AlCl and/or electrocautery). There were no complications; the pt. tolerated the procedure well. The wound was dressed. Post-procedure expectations, wound care and activity restrictions were reviewed. Follow-up based on pathology results. RTC 1 year or before if problems arise. Continue to monitor skin for new or changing lesions and protect himself from the sun. Note initiated by: .Ginny Christiansen LPN Routed to physician for review and changes: Rigoberto Albarran MD Section of Dermatology [facility] documented in this encounter Plan of Treatment Upcoming Encounters Date Type Specialty Care Team Description 02/19/2022 Laboratory Appointment Lab 02/19/2022 Office Visit Cardiology Liz Poole PA [facility] Cardiology Dept [place], [place] [address] (Wo rk) 03/12/2022 Office Visit Cardiology Vitaliy Nobles MD [facility] CARDIOLOGY [place], [place] [address] (Wo rk) documented as of this encounter Procedures Procedure Name Priority Date/Time Associated Diagnosis Comme nts SURGICAL PATHOLOGY Routine 10/04/2012 12:43 PM Glenda melgar for this REPORT EDT procedure are i n the results section. SPECIMEN TO Routine 10/04/2012 9:55 AM Neoplasm of Results f or this PATHOLOGY (NON-OR) EDT unspecified nature pro cedure are in of bone, soft the results tissue, and skin section. documented in this encounter Results Surgical Pathology Report (10/04/2012 12:43 PM EDT) Component Value Ref Test Analysis Performed At [facility] Range Method Time Signature Surgical CERNER Pathology ? Formerly named [facility] Report ? Provider: ?? RIGOBERTO ALBARRAN III Pt. Name: ?? DON HOANG ?A ? Acc #: ?[id number] ? Pt. ? Col Date: ?? 3 ? /Sex: ?1945,(67 years),Male ? Rec Date: ?? 10/04/2012 ? LOC: ?[facility] ? SURGICAL PATHOLOGY ? ---Pathologic Diagnosis--- ? Skin, left mid chest, shave biopsy: ? 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 margins in the planes of sectioning, and extending down a follicle to be ? focally present at the base. ? CR-0 ? 10/05/12 ? VMS ? 10/05/12 Verified by: ? Herman Ovalles MD ? Dermatopatholo gist ? (Electronic Si gnature) ? The attending pathologist whose signature appears o n this report has ? reviewed all diagnostic slides and has edited the edita ss and/or ? microscopic portion of the report in rendering the fi nal pathologic ? diagnosis. ? ---Microscopic Description--- ? Slides reviewed, microscopic description not recorded . ? ---Gross Description--- ? Labeled/Fixative: ? Labeled with the patient's na me, formalin. ? Qty/Size/Weight: ?Single shave, 0.9 cm, white with a 0.7-cm ? brown macule. ? Sections/Processing: ??Inked. ??Trisected. ??(T1) ??v ms/SNS ? ---Clinical Information--- ? Specimen Submitted: ? A - Skin, left mid chest, shave biopsy (1) ? Clinical History/Diagnosis: ? 5-mm irregularly pigmented papule / SK vs nevus rule out dysplasia Specimen (Source) Anatomical Collection Method Collection Time Re ceived Time Location / / Volume Laterality 10/04/2012 12:43 PM EDT Rigoberto Albarran III, MD PATHOLOGY/CYTOLOGY ORDERABLE S Performing Organization Address City/[facility]/[place] [address] CERNER MILLENNIUM Specimen to Pathology (NON-OR) (10/04/2012 9:55 AM EDT) Specimen Anatomical Collection Method Collection Time Receive d Time (Source) Location / / Volume Laterality AP Specimen 10/04/2012 9:55 AM 3 9:56 EDT AM EDT Narrative CERNER MILLENNIUM - 10/04/2012 9:56 AM E DT Specimen requisition ordered. ??Separate Pathology report to follow Rigoberto Albarran III, MD PATHOLOGY/CYTOLOGY ORDERABLE S Performing Organization Address City/[facility]/[place] [address] CERNER MILLENNIUM documented in this encounter Visit Diagnoses Diagnosis Psoriasis - Primary Other psoriasis Neoplasm of unspecified nature of bone, soft tissue, and skin Skin lesion of chest wall Unspecified disorder of skin and subcuta neous tissue Seborrheic psoriasis- scalp and ingtergl uteal area Other psoriasis documented in this encounter Care Teams Miniature Set Designer Relationship Specialty Start Date End Date Unknown PCP - General 10/04/12 01/24/13 None documented as of this encounter
--- OUTSIDE RECORDS SUMMARY | 2022-02-06 13:41 | XMS_ITS | Encounter Summary ---
:1945 Author Organization [facility] [place] [address] Care Team Providers Name Role Phone Miya Angela STACIE Primary Care Provider Encounter Details Date Type Department Care Team Description 04/24/2013 Telephone Urology at [facility] Zhen Bomwan MD [facility] [place] [address] UROLOGY DEPT [phone] [place], [place] [address] (Wo rk) Social History Tobacco Use Types Packs/Day Years Used Date Former Smoker Alcohol Use Standard Drinks/Week Comments No 0 (1 standard drink = 0.6 oz pure alcoho l) Sex Assigned at Date Recorded Not on file documented as of this encounter Miscellaneous Notes Telephone Encounter - Zhen Bowman - 04/24/2013 9:16 PM EDT Patient called with ongoing low grade fevers and chills. We saw him in clinic on 04/05 and removed his catheter. He passed a voiding trial. He then developed a UTI treated with Bactrim and improved. Several days after completing that course he developed fevers again and was told at an OSH ED that he had another UTI and was started on cipro. He currently has no lower urinary symptoms. He has no high fevers today. He has no flank pain. I explained that it is not clear the cause of his symptoms, and that I do not have his culture information from the OSH. I told him to continue with the cipro for now. They should seek attention and/or call back if he starts again spiking fevers or develops severe flank pain. documented in this encounter Plan of Treatment Upcoming Encounters Date Type Specialty Care Team Description 02/19/2022 Laboratory Appointment Lab 02/19/2022 Office Visit Cardiology Liz Poole PA [facility] Cardiology Dept [place], [place] [address] (Wo rk) 03/12/2022 Office Visit Cardiology Vitaliy Nobles MD [facility] CARDIOLOGY [place], [place] [address] (Wo rk) documented as of this encounter Visit Diagnoses Not on filedocumented in this encounter Care Teams Instrument Repair Specialist Relationship Specialty Start Date End Date Angela Holliday APRN PCP - General 01/25/13 04/15/[address] [place] [address] documented as of this encounter
--- OUTSIDE RECORDS SUMMARY | 2022-02-06 13:41 | XMS_ITS | Encounter Summary ---
:1945 Author Organization [facility] [place] [address] Care Team Providers Name Role Phone MiyaAngela STACIE Primary Care Provider Reason for Visit Reason Comments Post Op voiding trial Encounter Details Date Type Department Care Team Description 04/05/2013 Office Visit Urology at [facility] Darryl Egan, UTI ([facility] MD tract infection) [facility] (Primary Dx) [place] [address] UROLOGY DEPT [phone] [place], [place] [address] Social History Tobacco Use Types Packs/Day Years Used Date Former Smoker Alcohol Use Standard Drinks/Week Comments No 0 (1 standard drink = 0.6 oz pure alcoho l) Sex Assigned at Date Recorded Not on file documented as of this encounter Last Filed Vital Signs Vital Sign Reading Time Taken Comments Blood Pressure 122/62 04/05/2013 11:03 AM EDT Pulse 80 04/05/2013 11:03 AM EDT Temperature - - Respiratory Rate - - Oxygen Saturation - - Inhaled Oxygen Concentration - - Weight 78 kg (172 lb) 04/05/2013 11:03 AM EDT Height 172.7 cm (5' 8) 04/05/2013 11:03 AM EDT Body Mass Index 26.15 04/05/2013 11:03 AM EDT documented in this encounter Progress Notes Darryl Egan MD - 04/05/2013 2:26 PM EDT The patient returned after 2.5 hours and has voided more than once. The ultrasound residual is zero.I will plan to see the patient in several weeks. Darryl Egan MD - 04/05/2013 12:47 PM EDT CC: Post op urinary retention. HPI: This 68 Y/O man went into urinary retention following thyroid surgery. He was catheterised without difficulty in the recovery room and found to have 1200 cc's in his bladder. He does mention slowing of the urinary stream for some time prior to surgery. He has nocturia times one and feels that he ordinarily empties his bladder. 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 No previous hematuria, urinary trauma, UTI's or stones. He is here today to have his catheter removed an undergo a voiding trial. PFS: Children Non Smoker Social alcohol ingestion No family history of prostate ca. Review of Systems Constitutional: Recent thyroid surgery: Recovery on schedule. HENT: Positive for neck pain and neck stiffness. Eyes: Negative. Respiratory: Negative. Cardiovascular: Negative. Gastrointestinal: Negative. Genitourinary: Positive for frequency, enuresis and difficulty urinating. Musculoskeletal: Positive for myalgias and arthralgias. Skin: History of melanoma Neurological: Negative. Hematological: Negative. Psychiatric/Behavioral: Negative. Physical Exam Constitutional: He is oriented to person, place, and time. He appears well- developed and well-nourished. HENT: Head: Normocephalic. Healing thyroidectomy wound. Neck: Neck supple. Cardiovascular: Normal rate. Pulmonary/Chest: Effort normal. Abdominal: There is no tenderness. Genitourinary: Catheter in place Musculoskeletal: Normal range of motion. Neurological: He is alert and oriented to person, place, and time. Skin: Skin is warm. Psychiatric: His behavior is normal. Imp: Acute post operative urinary retention with bob cath in place and removed. Plan: He voided well after initial cath removal. Plan drink for two hours and return for residual check. See again in six weeks to review voiding function and prostate status. documented in this encounter Miscellaneous Notes Addendum Note - Lisbet Jaimes - 04/05/2013 1:54 PM EDT Addended by: LISBET JAIMES on: 04/05/2013 01:54 PM Modules accepted: Orders documented in this encounter Plan of Treatment Upcoming Encounters Date Type Specialty Care Team Description 02/19/2022 Laboratory Appointment Lab 02/19/2022 Office Visit Cardiology Liz Poole PA [facility] er Cardiology Dept [place], [place] [address] (Wo rk) 03/12/2022 Office Visit Cardiology Vitaliy Nobles MD [facility] ER CARDIOLOGY [place], [place] [address] (Wo rk) documented as of this encounter Procedures Procedure Name Priority Date/Time Associated Diagnosis Comme nts URINE CULTURE Routine 04/05/2013 11:48 AM UTI (lower urinary R esults for this EDT tract infection) procedure a re in the results section . documented in this encounter Results Urine culture Clean Catch Urine (04/05/2013 11:48 AM EDT) Component Value Ref Test Analysis Performed At [facility] Method Time Signature Urine Culture CERNER ? Patient Name: DON HOANG ? Ordered By: DARRYL EGAN [facility] ? MR#: [id number] ?LOC: ??5B ? /Sex: ??1945 (68 years), ? Male ? PROCEDURE: Urine Culture ?SOURCE: U CC ? COLLECTED: 04/05/2013 11:48 ? STARTED: 04/05/2013 13:54 ? FINAL REPORT ? Final Report ? Verified:04/07/2013 11:39 ? Greater than 100,000 cfu/ml Citrobacter freundii comp nancie ? PRELIMINARY REPORT ? Preliminary Report ? Verified:04/06/2013 08:08 ? Greater than 100,000 cfu/ml Gram Negative Rods ? SUSCEPTIBILITY RESULTS ? Citrobacter freundii complex ?SETH Inter p ? Ampicillin ? R ? Ampicillin/Sulbactam ? S ? Aztreonam ?S ? Cefazolin ?R ? Cefoxitin ?R ? Ceftazidime ?S ? Ceftriaxone(1) ? S ? Cefuroxime ? S ? Ciprofloxacin ?S ? Gentamicin ? S ? Levofloxacin ? S ? Meropenem ?S ? Nitrofurantoin ? S ? Piperacillin/Tazobactam ?S ? Trimethoprim/Sulfa ? S ? Tetracycline ? S ? Tobramycin ? S ? Patient: DON HOANG ? MR#: [id number] ? FOOTNOTES ? (1) ? This organism carries inducible Beta-lactamase. ??Mon otherapy with ? Cephalosporins is not advised. ? Specimen (Source) Anatomical Collection Method Collection Time Re ceived Time Location / / Volume Laterality Urine specimen 04/05/2013 11:48 3 1:54 obtained by clean AM EDT PM EDT catch procedure (specimen) Resulting Agency Comment Spec In Lab Darryl Egan MD MICROBIOLOGY - GENERAL ORDER [place] Performing Organization Address City/State/[place] [address] [facility] documented in this encounter Visit Diagnoses Diagnosis UTI (lower urinary tract infection) - Pr imary Urinary tract infection, site not specif ied documented in this encounter Care Teams Wash Oil Pump Operator Helper Relationship Specialty Start Date End Date Angela Holliday APRN PCP - General 01/25/13 04/15/[address] [place] [address] documented as of this encounter
--- OUTSIDE RECORDS SUMMARY | 2022-02-06 13:41 | XMS_ITS | Encounter Summary ---
:1945 Author Organization [facility] [place] [address] Care Team Providers Name Role Phone MiyaAngela STACIE Primary Care Provider Reason for Visit Reason Comments Urinary Retention Encounter Details Date Type Department Care Team Description 05/16/2013 Follow-Up Urology at [facility] Blade Smith, Retention of urine [facility] (Primary Dx) [place] [address] UROLOGY DEPT [place] [id number] (Wo rk) Social History Tobacco Use Types [...] - Temperature - - Respiratory Rate 18 05/16/2013 7:48 AM EDT Oxygen Saturation - - Inhaled Oxygen Concentration - - Weight 79.4 kg (175 lb) 05/16/2013 7:48 AM EDT Height 172.7 cm (5' 8) 05/16/2013 7:48 AM EDT Body Mass Index 26.61 05/16/2013 7:48 AM EDT documented in this encounter Progress Notes Blade Smith MD - 05/16/2013 8:05 AM EDT CC: History of urinary retention and a recent UTI> HPI: The patient is now voiding with no residual following post operative urinary rentention and a subsequent UTI that was treated with antibiotics. Today he returns for follow up and he reports a goodstream and last night he slept through the night without getting up to void. He has no dysuria and no prepubic discomfort. His urine today shows sugar but no bacteria or WBC's. No hematuria or stones. ROS: General: Recovered from thyroidectomy Exam: General: No acute distress Rectal exam deferred because of recent UTI. Imp: Normal Voiding. Indeterminate prostate status. Plan: Return to clinic is 3-6 months for NILA and PSA. documented in this encounter Plan of Treatment Upcoming Encounters Date Type Specialty Care Team Description 02/19/2022 Laboratory Appointment Lab 02/19/2022 Office Visit Cardiology Liz Poole PA [facility] er Cardiology Dept [place], [place] [address] (Wo rk) 03/12/2022 Office Visit Cardiology Vitaliy Nobles MD [facility] CARDIOLOGY [place], [place] [address] (Wo rk) documented as of this encounter Visit Diagnoses Diagnosis Retention of urine - Primary Retention of urine, unspecified documented in this encounter Care Teams Stockroom Associate Relationship Specialty Start Date End Date Angela Holliday APRN PCP - General 01/25/13 04/15/[address] [place] [address] documented as of this encounter
--- OUTSIDE RECORDS SUMMARY | 2022-02-06 13:41 | XMS_ITS | Encounter Summary ---
:1945 Author Organization [facility] [place] [address] Care Team Providers Name Role Phone Angela Holliday APRN Primary Care Provider Reason for Referral Surgical (Routine) - Closed Specialty Diagnoses / Procedures Referred By Contact Refer red To Contact General Surgery Diagnoses Elijah Villagomez MD Colacchio, Thomas A, MD [address] [place] [address] [place] [address] [place] [address] Phone: Fax: Referral ID Status Reason Start Date Expiration Date Visits V isits Requested Authorized [id number] Closed Specialty 01/25/2013 07/24/2013 1 1 Service Requested Reason for Visit Reason Comments Thyroid Problem Encounter Details Date Type Department Care Team Description 01/25/2013 Office Visit Endocrinology at [facility] Elijah Fuentes Goiter (Primary Dx) [facility] [address] [place] [phone] [place] [address] [phone] Social History Tobacco Use Types Packs/Day Years Used Date Former Smoker Alcohol Use Standard Drinks/Week Comments No 0 (1 standard drink = 0.6 oz pure alcoho l) Sex Assigned at Date Recorded Not on file documented as of this encounter Last Filed Vital Signs Vital Sign Reading Time Taken Comments Blood Pressure 137/84 01/25/2013 9:16 AM EDT Pulse 72 01/25/2013 9:16 AM EDT Temperature - - Respiratory Rate - - Oxygen Saturation - - Inhaled Oxygen Concentration - - Weight 83.7 kg (184 lb 9.6 oz) 01/25/2013 9:16 AM EDT Height - - Body Mass Index - - documented in this encounter Progress Notes Elijah Elias MD - 01/25/2013 10:06 AM EDT Patient seen in consultation at the request of: Angela Holliday Reason for consult: Goiter Don Fatima is a very pleasant 67 y.o. year old male with a history of goiter first discovered ~2003. He has been followed since with periodic neck US. Recently he had an US that, compared to one in 2009, demonstrated significant interval change. 2012 2009 Right 3.6x3.3x7.0 5.3x1.7x1.6cm Left 7.1x6.3x4cm 5.2x3.5x2.9cm History of H+N XRT exposure: No Family history of thyroid cancer: No Thyroid Compressive symptoms: Globus sensation: No Dysphagia: No Dysphonia: No Dyspnea: No He does have a history of sleep apnea and is using CPAP. Symptoms of thyroid hormone excess / deficiency Heat intolerance: No Cold intolerance: No Diarrhea: No Constipation: No Weight loss / gain: No Anxiety: No Jitteriness: No Tremors: No Palpitations: No Difficulty concentrating: No TSH Unavailable. Patient Active Problem List Diagnoses Code ??? Melanoma 172.9 ??? Seborrheic psoriasis- scalp and ingtergluteal area 696.1 ??? Skin lesion of chest wall 709.9 ??? 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 All other systems negative. Physical Exam GEN: A+O 3; WDWN; Comfortable; Mood and affect appropriate. EYES: KHALIDA; No stare, no lid lag, no conjunctival injection NECK: Trachea midline, no neck masses; Thyroid diffusely enlarged and nodular; L >> R; Mobile;Firm but not hard; No cervical lymphadenopathy CHEST: Clear to auscultation; No dullness to percussion CV: Regular rate and rhythm; No murmurs rubs or gallops; no peripheral edema ABD: Soft and non-tender; No masses notes MSK: Normal gait and station; No clubbing or cyanosis of digits SKIN: Intact without lesions or rashes NEURO: CN II-XII grossly intact with normal coordination, muscle strength and tone; No tremor of outstretched hands; DTRs 2+ w/ normal relaxation phase THYROID ULTRASOUND: Indication: Thyroid nodule on prior study; Considering FNA - clarify size, position and US characteristics Date: 01/25/2013 Comparison: Real time images of the thyroid gland were obtained using a [email or web address] and an HFL38/[id number] broadband linear array transducer. All measurements are given as AP x Transverse x Longitudinal Right Lobe: The right lobe measures: 2.9x3.2x7cm and is composed of multiple isoechoic and heterogeneous nodules- many with areas of cystic change and macrocalcifications - that are coalescing and overlapping with no intervening normal parenchyma. There is no clearly dominant nodule. I do not appreciate any micro calcifications. There is no increased vascularity in the lobe. Left Lobe: The left lobe measures: 3.8x4.2x>72cm and is composed of multiple isoechoic and heterogeneous nodules - many with areas of cystic change and macrocalcifications - that are coalescing and overlappingwith no intervening normal parenchyma. There is no clearly dominant nodule. I do not appreciate any m icrocalcifications. There is no increased vascularity in the lobe. Isthmus: The isthmus measures: 2.0cm The trachea is deviated to the right, but the lumen remains widely patent measuring 1.8cm or more atall visible levels. ASSESSMENT / PLAN: Multinodular goiter No one nodule with ultrasound features significantly different from the others, or with high risk features. I think the risk of malignancy in this process is really quite minimal. According to measurements from the outside US, this has been enlarging quite rapidly and is now approximately 7 times normal volume. Although he is minimally symptomatic, I do think that this might be contributing to his sleep apnea. There have been a number of studies demonstrating improvement in OSAfollowing thyroidectomy for large goiter. Given the size of the goiter and it's apparent proclivity for enlargement and the mass effect it is already exerting on the trachea, I think the best option at this point is thyroidectomy. I discussed this at some length with the patient and his . We reviewed the risk of adverse events (hypoparathyroidism and RLN injury) and the need for T4 replacement lifelong. He understands the above and wishes to pursue surgery. Plan: Refer to surgery for thyroidectomy . documented in this encounter Miscellaneous Notes Addendum Note - Elba Dave - 01/25/2013 12:15 PM EDT Addended by: ELBA DAVE on: 01/25/2013 12:15 PM Modules accepted: Orders Addendum Note - Elijah Elias MD - 01/25/2013 12:04 PM EDT Addended by: ELIJAH ELIAS on: 01/25/2013 12:04 PM Modules accepted: Orders documented in this encounter Plan of Treatment Upcoming Encounters Date Type Specialty Care Team Description 02/19/2022 Laboratory Appointment Lab 02/19/2022 Office Visit Cardiology Liz Poole PA [facility] [place] [address] (Wo rk) 03/12/2022 Office Visit Cardiology Vitaliy Nobles MD [facility] CARDIOLOGY [place], [place] [address] (Wo rk) Scheduled Referrals Name Type Priority Associated Diagnoses Order S chedule Referral to Outpatient Referral Routine Goiter Ordered: General Surgery 01/25/2013 documented as of this encounter Procedures Procedure Name Priority Date/Time Associated Diagnosis Comme nts TSH Routine 01/25/2013 1:51 PM Goiter Results f or this EDT procedure are i n the results section . documented in this encounter Results (ABNORMAL) TSH (01/25/2013 1:51 PM EDT) P athologist Signature TSH 0.25 (L) 0.27 - 4.20 CERNER mcIU/mL MILLENNIUM Specimen Anatomical Collection Method Collection Time Receive d Time (Source) Location / / Volume Laterality Blood specimen 01/25/2013 1:51 PM 013 1:51 (specimen) EDT PM EDT Resulting Agency Comment Spec In Lab Elijah Elias MD CHEMISTRY ORDERABLES Performing Organization Address City/State/[place] [address] [facility] documented in this encounter Visit Diagnoses Diagnosis Goiter - Primary Goiter, unspecified documented in this encounter Care Teams Aerodynamics Engineer Relationship Specialty Start Date End Date Angela Holliday APRN PCP - General 01/25/13 04/15/[address] [place] [address] documented as of this encounter
--- OUTSIDE RECORDS SUMMARY | 2022-02-06 13:41 | XMS_ITS | Encounter Summary ---
:1945 Author Organization [facility] [place] [address] Care Team Providers Name Role Phone Angela Holliday APRN Primary Care Provider Encounter Details Date Type Department Care Team Description 03/28/2013 Surgery Main Operating Room Mesha Mcknight, THYROIDECTOMY, [facility] [address] [place] [address] [place] [address] [phone] (Wo rk) Social History Tobacco Use Types Packs/Day Years Used Date Former Smoker Alcohol Use Standard Drinks/Week Comments No 0 (1 standard drink = 0.6 oz pure alcoho l) Sex Assigned at Date Recorded Not on file documented as of this encounter Last Filed Vital Signs Vital Sign Reading Time Taken Comments Blood Pressure 160/89 03/28/2013 8:49 AM EDT Pulse 77 03/28/2013 8:49 AM EDT Temperature 36.6 ??C (97.9 ??F) 03/28/2013 8:49 AM EDT Respiratory Rate 18 03/28/2013 8:49 AM EDT Oxygen Saturation 97% 03/28/2013 8:49 AM EDT Inhaled Oxygen Concentration - - [...] please call the General Surgery nurse at [phone], since this may mean that you need morecalcium. Follow-up Appointment: Will be scheduled with Dr. Mcknight in 6 weeks Date and time as well as any required labs will be mailed to you Please call [phone] to confirm date and time of your [...] by calcium supplementation. Phone number for questions: [phone] before 5 PM weekdays [phone] after 5 PM and on weekends/holidays Please follow up with Urology as per their recommendations for Bob removal AttachmentsThe following attachments cannot be sent through Care Everywhere. THYROIDECTOMY: WHAT TO EXPECT AT HOME (FAROESE)URINARY CATHETER CARE: AFTER YOUR VISIT (FAROESE)documented in this encounter Medications at Time of [...] is a 68 y.o. male presents to [facility] today for total thyroidectomy. See full Consult [...] Willams MD - 03/28/2013 3:43 PM EDT [facility] Operative Note Patient Name: Gregory Fatima : [id number] MR#: [id number] Case Date: 03/28/2013 Surgeon: Surgeon(s) and Role: [...] placed in the wound, but a #7 AJNUARY drain was placed under the strap muscles [...] patient was extubated and taken to the [facility] in stable condition. At the end ofthe [...] Operative Note Patient Name: Gregory Fatima : [id number] MR#: [id number] Case Date: 03/28/2013 Surgeon: Surgeon(s) and Role: [...] Liz Poole PA [facility] Cardiology Dept [place], [place] [address] (Wo rk) 03/12/2022 Office Visit Cardiology Vitaliy Nobles MD [facility] CARDIOLOGY [place], [place] [address] (Wo rk) documented [...] Address City/State/ZIP Code Phon e Number [address] CERNER MILLENNIUM (ABNORMAL) POCT [...] Organization Address City/State/[place] [address] CERNER MILLENNIUM (ABNORMAL) POCT [...] Organization Address City/State/[place] [address] CERNER MILLENNIUM (ABNORMAL) POCT [...] ORDERABLE S Performing Organization Address City/[facility]/ZIP Code Phon e Number [address] CERNER MILLENNIUM (ABNORMAL) POCT [...] ORDERABLE S Performing Organization Address City/[facility]/ZIP Code Phon e Number [address] CERNER MILLENNIUM (ABNORMAL) POCT [...] Organization Address City/State/[place] [address] CERNER MILLENNIUM (ABNORMAL) POCT [...] ORDERABLE S Performing Organization Address City/[facility]/ZIP Code Phon e Number [address] CERNER MILLENNIUM (ABNORMAL) POCT [...] ORDERABLE S Performing Organization Address City/[facility]/[place] [address] CERNER MILLENNIUM Specimen to Pathology (surgical or derm) (03/28/2013 12:14 PM EDT) Specimen Anatomical Collection Method Collection Time Receive d Time (Source) Location / / Volume Laterality AP Specimen 03/28/2013 12:14 03/28/2013 PM EDT 12:14 PM EDT Narrative [facility] - 03/28/2013 12:14 PM EDT Specimen requisition ordered. ??Separate Pathology report to follow Mesha Mcknight MD PATHOLOGY/CYTOLOGY ORDERABLE S Performing Organization Address City/State/[place] [address] [facility] Pathology Addendum Report (03/28/2013 12:03 PM EDT) Component Value Ref Test Analysis Performed At [facility] Range Method Time Signature Addendum [facility] Report ? [facility] ? Provider: ?? MESHA MCKNIGHT Pt. Name: ?? GREGORY FATIMA ? Acc #: ?[id number] ?Pt. MRN: ?[id number] ? Col Date: ?? 03/28/2013 ?/Sex: ?1945,(68 [...] MD PATHOLOGY/CYTOLOGY ORDERABLE S Performing Organization Address [facility]/[place] [address] [facility] Surgical Pathology Report (03/28/2013 12:03 PM EDT) Component Value Ref Test Analysis Performed At [facility] gist Range Method Time Signature Surgical [facility] Pathology ? [facility] Report ? Provider: ?? MESHA MCKNIGHT Pt. Name: ?? GREGORY FATIMA ? Acc #: ?[id number] ?Pt. MRN: ?[id number] ? Col Date: ?? 03/28/2013 ?/Sex: ?1945,(68 [...] areas of hemorrhage and ? calcifications. ? [facility] ? Provider: ?? MESHA MCKNIGHT Pt. Name: ?? NATALYA GREGORY E ? Acc #: ?[id number] ?Pt. MRN: ?[id number] ? Col Date: ?? 03/28/2013 ?/Sex: ?1945,(68 years),Male ? Rec Date: ?? 03/28/2013 ?LOC: ?[facility] ? SURGICAL PATHOLOGY ? SECTIONS/PROCESSING: Minute Clerk For Basic Traffic sections are subm itted. (R6) ? B [...] Organization Address City/State/[place] [address] CERNER MILLENNIUM Frozen Section Report (03/28/2013 12:03 PM EDT) Component Value Ref Test Analysis Performed At [facility] Range Method Time Signature Frozen CERNER Section ? [facility] ? Provider: ?? MESHA MCKNIGHT Pt. Name: ?? GREGORY FATIMA ? Acc #: ?[id number] ?Pt. MRN: ?[id number] ? Col Date: ?? 03/28/2013 ?/Sex: ?1945,(68 years),Male ? Rec Date: ?? 03/28/2013 ?LOC: ?[facility] ? FROZEN SECTION REPORT ? ---Frozen Section Report--- ? Part A - Intraoperati ve gross consultation was performed. ??The case was ? discussed by phone with Dr. Mcknight, and no frozen ? section was performed. ? 03/31/13 ??Verified by: ??César STRANGE, Ruben Yusuf, Sowmya gist ? The attending [facility] gist whose electronic signature appears on this [...] ORDERABLE S Performing Organization Address City/[facility]/ZIP Code Phon e Number [address] [facility] MILLENNIUM POCT Glucose (03/28/2013 12:00 PM EDT) P athologist Signature POC Glucose 134 60 - 199 CERNER mg/dL [facility] Comment: Supplemental ranges: <110 mg/dL before meals <200 mg/dL all other times of the day Specimen Anatomical Collection Method Collection Time Receive d Time (Source) Location / / Volume Laterality Blood specimen 03/28/2013 12:00 3 (specimen) PM EDT 12:00 PM EDT Mesha Mcknight MD POINT OF CARE TEST ORDERABLE S Performing Organization Address [facility]/ZIP Code Phon e Number [place] [address] [facility] Specimen to Pathology (surgical or derm) (03/28/2013 11:58 AM EDT) Specimen Anatomical Collection Method Collection Time Receive d Time (Source) Location / / Volume Laterality AP Specimen 03/28/2013 11:58 03/28/2013 AM EDT 11:58 AM EDT Narrative [facility] - 03/28/2013 11:58 AM EDT Specimen requisition ordered. ??Separate Pathology report to follow Mesha Mcknight MD PATHOLOGY/CYTOLOGY ORDERABLE S Performing Organization Address City/[facility]/ZIP [place] [address] [facility] Antibody screen (03/28/2013 9:37 AM EDT) Analysis Performed At Patho logist Time Signature Ab Screen Negative [facility] Interp [facility] Expires at [id number] [facility] [id number] on: MILLENNIUM Specimen Anatomical Collection Method Collection Time Receive d Time (Source) Location / / Volume Laterality Blood specimen 03/28/2013 9:37 AM 013 9:37 (specimen) EDT AM EDT Resulting Agency Comment Spec In Lab Mehsa Mcknight MD BLOOD BANK ORDERABLES Performing Organization Address City/State/ZIP Code Phon e Number [address] CERNER MILLENNIUM ABO/Rh Typing [...] Address City/State/ZIP Code Phon e Number [address] CERNER MILLENNIUM Differential, Automated [...] Organization Address City/State/[place] [address] CERNER MILLENNIUM (ABNORMAL) Basic [...] intervals supplied above were not validated at [facility]. Results from pediatri c patients should be [...] Organization Address City/State/[place] [address] CERNER MILLENNIUM (ABNORMAL) CBC [...] Organization Address City/State/[place] [address] CERNER MILLENNIUM POCT Glucose (03/28/2013 9:17 AM EDT) P athologist Signature POC Glucose 108 60 - 199 CERNER mg/dL [facility] Comment: Supplemental ranges: <110 mg/dL before meals <200 mg/dL all other times of the day Specimen Anatomical Collection Method Collection Time Receive d Time (Source) Location / / Volume Laterality Blood specimen 03/28/2013 9:17 AM 013 9:17 (specimen) EDT AM EDT Mesha Mcknight MD POINT OF CARE TEST ORDERABLE S Performing Organization Address City/[facility]/ZIP Code Phon e Number [address] RAKESH CARVALHOIUM Specimen to [...] Organization Address City/State/[place] [address] CERNER GRISELDAENNIUM documented in this encounter Visit Diagnoses Not [...] Given 03/28/2013 4:05 PM EDT 2.5 mg BUpivacaine-epiNEPHrine 0.25 %-1:200,000 Given 03/28/2013 10:46 AM EDT 25 mg injection ONCE PRN, Starting on Wed03/28/13 at 1046, Until Wed03/28/13 at 1637, Intra-Operative (Intra-Procedure), Routine ceFAZolin (ANCEF) 2g in dextrose 5% 50 [...] 0900 (Given - Provider: Radha christine RN) 2.5 mg, Oral, DAILY, First dose on Wed03/28/13 at 1530, Until Dis continued ceFAZolin (ANCEF) 2g in dextrose 5% 50 mL (CANCELED) 0900 (Not Given - Provider: Caim Baxter RN - Reason: See comment - [...] (CANCELED) 1337 (Given - Provider: Cami Baxter, RN) 10 mg, Intravenous, EVERY 1 HOUR PRN, [...] gel (COMPLETED) 1405 (Given - Provider: Angela Breaux, VAMSI - Comment: given by dr. bowman when inserting catheter) 1 dose, Starting Wed03/28/13 at 1405, Unt il Wed03/29/13 at 0214, MARQUES SOW: cabinet override documented in this encounter Care Teams Dado Operator Relationship Specialty Start Date End Date Angela Holliday APRN PCP - General 01/25/13 04/15/15 [address] [place] [address] documented as of this encounter
--- OUTSIDE RECORDS SUMMARY | 2022-02-06 13:41 | XMS_ITS | Encounter Summary ---
:1945 Author Organization [facility] [place] [address] Care Team Providers Name Role Phone Angela Holliday APRN Primary Care Provider Reason for Visit Reason Comments Skin Check Encounter Details Date Type Department Care Team Description 07/31/2013 Follow-Up Dermatology at [facility] Forman eoplasm of unspecified nature of bone, soft tissue, and skin (Primary Dx); Abdelrahman HOOPER MD Seborrheic psoriasis- scalp and ingtergl uteal area; [address] [facility] Atypical [place] [address] [facility] [place], [place] [address] (Wo rk) Social History Tobacco Use Types Packs/Day Years Used Date Former Smoker Alcohol Use Standard Drinks/Week Comments No 0 (1 standard drink = 0.6 oz pure alcoho l) Sex Assigned at Date Recorded Not on file documented as of this encounter Progress Notes Ginny Christiansen LPN - 07/31/2013 7:58 AM EST Images from the original note were not included. DERMATOLOGY ESTABLISHED PATIENT CLINIC NOTE Date of service: 07/31/2013 Gregory Hoang : 1945 Provider: Rigoberto Garcia MD PROBLEM: skin cancer screening SKIN HISTORY: 0.98 mm with a Ede Level IV, high on his mid back in 2005 psoriasis PATIENT SCREENING QUESTIONS DO YOU HAVE A PACEMAKER OR DEFIRILLATOR? no DO YOU HAVE ARTIFICIAL JOINTS? no Less than 2 year old? DO YOU HAVE AN ARTIFICIAL HEART VALVE? no What blood thinner do you take? Do you take antibiotics before procedures?no HPI Gregory Hoang is a 68 y.o. year old male. He is here to have a full skin exam and has a new spot on his abdomen. It is itchy and inflamed. He has mild psoriasis in his scalp and applies clobetasol solution as needed, usually once a week. He also has Fluocinolone solution, but rarely uses it.. ADR: No Known Allergies ROS General: feeling well Skin: denies other skin complaints EXAM General: NAD, pleasant, cooperative male Skin: The entire skin surface was examined, including the face, neck, chest, abdomen, back. The armsand legs, including the palms, soles, fingers and between the toes. No lymphadenopathy, including the supraclavicular, cervical, axillary, and inguinal areas. Melanoma excision site scar was examined and palpated. There was no increase in pigmentation or induration at this site. Significant skin findings: A. Right abdomen - 5 - 6 mm pigmented lesion with recent history of itching and erythema B. small erythematous scaly plaques and papules on scalp C. Pruritis on buttocks, no obvious dermatitis- history of intermittent psoriasis on the buttocks and inter-gluteal cleft. ASSESSMENT/PLAN: A. Irritated SK vs nevus r/o dysplasia on the right mid-abdomen. I discussed this condition with thepatient and explored therapeutic options. I recommended a biopsy for firm diagnosis. Procedure: Skin biopsy by shave technique Location: right abdomen Discussed indications for procedure and expectations [...] were reviewed. Follow-up based on pathology results. Kadie Psoriasis in scalp - well controlled at the present. - I discussed this condition with the patient and explored therapeutic options. I recommended he continue applying the Clobetasol and Fluocinolone solutions sparingly as needed. He will only use the clobetasol twice daily twice a week and the fluocinolone in between. I prescribed some Triamcinolone 0.1% cream for any areas of psoriasis that appear on the body and advised him to apply OTC moisturizer to dry itchy areas such as his buttocks. RTC 6 months, before if problems arise. Discussed importance of sun protection, sun avoidance strategies, protective clothing, and sunscreen. I discussed warning signs for skin cancer, including the ABCE's of melanoma. I am documenting this encounter acting as the scribe for and in the presence of Dr. Garcia.: GINNY CHRISTIANSEN LPN I performed the above scribed service and agree with the accuracy of the documentation in this encounter. Rigoberto Garcia MD Section of Dermatology [facility] documented in this encounter Plan of Treatment Upcoming Encounters Date Type Specialty Care Team Description 02/19/2022 Laboratory Appointment Lab 02/19/2022 Office Visit Cardiology Liz Poole PA [facility] Cardiology [place], [place] [address] (Wo rk) 03/12/2022 Office Visit Cardiology Vitaliy Nobles MD [facility] CARDIOLOGY [place], [place] [address] (Wo rk) Scheduled Orders Name Type Priority Associated Diagnoses Order S chedule Pathology Order Update Lab Routine Neoplasm of unspec ified Ordered: 07/31/2013 nature of bone, soft tissue, and skin documented as of this encounter Procedures Procedure Name Priority Date/Time Associated Diagnosis Comme nts SPECIMEN TO Routine 07/31/2013 8:09 AM Neoplasm of Results f or this PATHOLOGY (NON-OR) EST unspecified nature pro cedure are in of bone, soft the results tissue, and skin section. SURGICAL PATHOLOGY Routine 07/31/2013 8:09 AM Res ults for this REPORT EST procedure are i n the results section. documented in this encounter Results Surgical Pathology Report (07/31/2013 8:09 AM EST) Component Value Ref Test Analysis Performed At [facility] gist Range Method Time Signature Surgical CERNER Pathology ? [facility] Report ? Provider: ?? DEION III, RIGOBERTO Pt. Name: ?? GREGORY HOANG ?A ? Acc #: ?[id number] ? Pt. ? Col Date: ?? 07/31/2013 ?/Sex: ?1945,(68 years),Male ? Rec Date: ?? 07/31/2013 ?LOC: ?HDM ? SURGICAL PATHOLOGY ? ---Pathologic Diagnosis--- ? 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 component, extending to the peripheral specimen edge, ulcerated, ? associated with spong iosis and superficial perivascular lymphoeosinophilic ? infiltrate (see Comment). ? CR-0 ? 08/01/13 ? BJM ? 08/01/13 Verified by: ? Ian STRANGE, PhD, Kevin ? Dermatopatholo gist ? (Electronic Si gnature) ? The attending pathologist whose signature appears o n this report has ? reviewed all diagnostic slides and has edited the edita ss and/or ? microscopic portion of the report in rendering the fi nal pathologic ? diagnosis. ? ---Comment--- ? There is epidermal spongiosis with focal ulcer, and lymphoeosinophilic ? infiltrate, consisten t with a coexisting spongiotic/eczematous dermatitis ? such as allergic contact dermatitis. Clinicopat hologic correlation is ? recommended. ? ---Microscopic Description--- ? Immunohistochemistry Studies: ? Formalin-fixed, paraf fin-embedded tissue sections are studied using the B- ? SA system technique w ith appropriate positive and negative controls. ??These ? IHC studies provide t he pathologist with adjunctive diagnostic information. ? Antibody specificity has been verified by testing antibodies on a series of ? in-house tissues with known immunohistochemical perfo rmance ? characteristics. The clinical interpretation of any antibody positive ? staining or its absence is evaluated within the denise xt of clinical ? presentation, morphol ogy, histopathological criteria and other diagnostic ? tests. ? Block ?Antibody ?Result (Positive/Negative) ? A1 ? MART-1 AEC ?Highl ights melanocytes ? ---Gross Description--- ? A - Labeled/Fixative: Patient demographics, formalin. ? Quantity/Size: Single, 0.9 x 0.8 x 0.2 cm. ? [facility] ? Provider: ?? JUSTINL III, RIGOBERTO Pt. Name: ?? GREGORY HOANG ?A ? Acc #: ?[id number] ? Pt. ? Col Date: ?? 07/31/2013 ?/Sex: ?1945,(68 years),Male ? Rec Date: ?? 07/31/2013 ?LOC: ?HDM ? Tissue Description: Shave of white skin with a 0.6 cm brown macule. ? SURGICAL PATHOLOGY ? Sections/Processing: Inked and trisected. (T1) ??sns ? ---Clinical Information--- ? Specimen Submitted: ? A - Skin, right abdomen, shave biopsy (1) ? Clinical History: ? 5-6 mm pigmented lesion, recent history of itching an d erythema ? Clinical Diagnosis: ? Irritated SK Specimen (Source) Anatomical Collection Method Collection Time Re ceived Time Location / / Volume Laterality 07/31/2013 8:09 AM EST Rigoberto Garcia III, MD PATHOLOGY/CYTOLOGY ORDERABLE S Performing Organization Address City/[facility]/[place] [address] CERNER MILLENNIUM Specimen to Pathology (NON-OR) (07/31/2013 8:09 AM EST) Specimen Anatomical Collection Method Collection Time Receive d Time (Source) Location / / Volume Laterality AP Specimen 07/31/2013 8:09 AM 4 8:09 EST AM EST Narrative CERNER MILLENNIUM - 07/31/2013 8:[address] Specimen requisition ordered. ??Separate Pathology report to follow Rigoberto Garcia III, MD PATHOLOGY/CYTOLOGY ORDERABLE S Performing Organization Address City/[facility] [address] CERNER MILLENNIUM documented in this encounter Visit Diagnoses Diagnosis Neoplasm of unspecified nature of bone, soft tissue, and skin - Primary Seborrheic psoriasis- scalp and ingtergl uteal area Other psoriasis Atypical nevus of abdominal wall Benign neoplasm of skin of trunk, except scrotum documented in this encounter Care Teams Keno Terminal Operator Relationship Specialty Start Date End Date Angela Holliday APRN PCP - General 01/25/13 04/15/[address] [place] [address] documented as of this encounter
--- OUTSIDE RECORDS SUMMARY | 2022-02-06 13:41 | XMS_ITS | Encounter Summary ---
:1945 Author Organization [facility] [place] [address] Care Team Providers Name Role Phone Angela Holliday APRN Primary Care Provider Encounter Details Date Type Department Care Team Description 03/30/2013 Telephone General Surgery at [facility] Cliff Nevarez, [place] [address] Social History Tobacco Use Types Packs/Day Years Used Date Former Smoker Alcohol Use Standard Drinks/Week Comments No 0 (1 standard drink = 0.6 oz pure alcoho l) Sex Assigned at Date Recorded Not on file documented as of this encounter Miscellaneous Notes Telephone Encounter - Cliff Nevarez RN - 03/30/2013 12:42 PM EDT This is a patient of who had a thyroidectomy performed 03/28/13. The called initially with some questions on the calcium/vit D amounts he is to take. His surgery is doing well and her questions were answered concerning calcium. However, she said she then had a bigger problem to discuss and wasn't sure what doctor she should talk with. Patient's report is as follows: The patient was taken to recovery post op and was unable to void. He told the nurses he could void given some more time but they decided to catheterize him. He was catheterized three times by various nurses and they were unable to fully pass the catheter or get urine to flow, but he started some ozzing blood around the meatus. They then contacted urology, who also had difficulty and finally was able to cath the patient with an in dwelling catheter but he was passing some mar blood in the bag and around the catheter. He stayed overnight and was discharge the next day with a leg bag and no instructions but that urology would call him and try to remove the catheter in 5-7 days. He was told if he could not void at that time they may need to teach him to self cath at home. According to the , he had no problems with this prior to this day. He is diabetic and at one point his sugar was over 500. He is normally maintained on oral meds but had no meds the day prior to his thyroidectomy. Today his FS was 278. His felt he needed another day or two for the metformin to kick in. He has no insulin coverage for this. However they have spoken with their PCP. Meantime, they called their PCP who was very upset over the catheterization. She was called because the patient was having abdominal cramps and was still passing , not bright blood, but pink tinged urine. She ascertained that the patient was lying down and the leg bag was draining back into his bladder. He now has a regular catheter bag and knows to keep it lower than his abdomen. It is draining ok but urine still pink in color. The PCP is wanting to have Home Health make visits. However, I told thepatient we would be glad to make a referral, but insurance most likely will not cover these visits since surgically he is doing fine and all they can do is monitor output. The is concerned that hehas not had a urine C/S and is not on antibiotics for the urinary tear they told her he has. The above information was provided by the patient and his . This concludes the Patient's 's report to me over the phone. Plan: I will task this to and see how he wants the patient to proceed. The family is upset and not happy with the post op outcome. I gave them the number for Patient Relations to discuss this further if they wish. documented in this encounter Plan of Treatment Upcoming Encounters Date Type Specialty Care Team Description 02/19/2022 Laboratory Appointment Lab 02/19/2022 Office Visit Cardiology Liz Poole PA [facility] er Cardiology Dept [place], [place] [address] (Wo rk) 03/12/2022 Office Visit Cardiology Vitaliy Nobles MD [facility] ER CARDIOLOGY [place], [place] [address] (Wo rk) documented as of this encounter Visit Diagnoses Not on filedocumented in this encounter Care Teams Supervisor Baking Relationship Specialty Start Date End Date Angela Holliday APRN PCP - General 01/25/13 04/15/[address] [place] [address] documented as of this encounter
--- OUTSIDE RECORDS SUMMARY | 2022-02-06 13:41 | XMS_ITS | Encounter Summary ---
:1945 Author Organization [facility] [place] [address] Care Team Providers Name Role Phone Angela Holliday APRN Primary Care Provider Encounter Details Date Type Department Care Team Description 03/15/2013 Telephone General Surgery at [facility] Maddison Key, [place] [address] Social History Tobacco Use Types Packs/Day Years Used Date Former Smoker Alcohol Use Standard Drinks/Week Comments No 0 (1 standard drink = 0.6 oz pure alcoho l) Sex Assigned at Date Recorded Not on file documented as of this encounter Miscellaneous Notes Telephone Encounter - Maddison Key RN - 03/15/2013 8:55 AM EDT Pt's called inquiring if pt needs a pre-op physical before surgery. She also states that Dr. Mcknight instructed the pt to take calcium with vitamin D before surgery, but she can't remember how much or for how many days. PLAN: I called and left a message letting them know that the pt does need a pre- op H&P before surgery, and he should get Calcium Citrate w/ Vitamin D (1000 mg or 1200 mg tabs depending on brand) and take 1 tab three times a day with meals starting the day before surgery. I left the nurses line number for them to call with any further questions. documented in this encounter Plan of Treatment Upcoming Encounters Date Type Specialty Care Team Description 02/19/2022 Laboratory Appointment Lab 02/19/2022 Office Visit Cardiology Liz Poole PA [facility] Cardiology Dept [place], [place] [address] (Wo rk) 03/12/2022 Office Visit Cardiology Vitaliy Nobles MD [facility] CARDIOLOGY [place], [place] [address] (Wo rk) documented as of this encounter Visit Diagnoses Not on filedocumented in this encounter Care Teams Digital Marketing Strategist Relationship Specialty Start Date End Date Angela Holliday APRN PCP - General 01/25/13 [address] [place] [address] documented as of this encounter
--- OUTSIDE RECORDS SUMMARY | 2022-02-06 13:41 | XMS_ITS | Encounter Summary ---
:1945 Author Organization [facility] [address] Care Team Providers Name Role Phone MiyaAngela STACIE Primary Care Provider Reason for Visit Reason Onset Date Comments Advice Only 03/31/2013 Encounter Details Date Type Department Care Team Description 03/31/2013 Telephone Urology at [facility] Daniele Trejo III, MD Advice Only [facility] [place] [phone] [place] [id number] [phone] (Wo rk) Social History Tobacco Use Types Packs/Day Years Used Date Former Smoker Alcohol Use Standard Drinks/Week Comments No 0 (1 standard drink = 0.6 oz pure alcoho l) Sex Assigned at Date Recorded Not on file documented as of this encounter Miscellaneous Notes Telephone Encounter - Daniele Trejo III, MD - 03/31/2013 11:07 AM EDT I called pt at the request of Dr. Mcknight. Pt instructed to increase fluid intale and contact us should the catheter become plugged with clot. He is being scheduled to see urology. Next week. documented in this encounter Plan of Treatment Upcoming Encounters Date Type Specialty Care Team Description 02/19/2022 Laboratory Appointment Lab 02/19/2022 Office Visit Cardiology Liz Poole PA [facility] [place], [place] [address] (Wo rk) 03/12/2022 Office Visit Cardiology Vitaliy Nobles MD [facility] ER CARDIOLOGY [place], [place] [address] (Wo rk) documented as of this encounter Visit Diagnoses Not on filedocumented in this encounter Care Teams Lubricating Specialist Relationship Specialty Start Date End Date Angela Holliday APRN PCP - General 01/25/13 04/15/[address] [place] [address] documented as of this encounter
--- OUTSIDE RECORDS SUMMARY | 2022-02-06 13:41 | XMS_ITS | Encounter Summary ---
:1945 Author Organization [facility] [place] [address] Care Team Providers Name Role Phone Angela Holliday APRN Primary Care Provider Reason for Visit Reason Onset Date Comments Other 03/30/2013 blood in catheter ba g Encounter Details Date Type Department Care Team Description 03/30/2013 Telephone General Surgery at [facility] Janneth Sharma, Other (blood in [facility] RN catheter bag) [place] [address] Social History Tobacco Use Types Packs/Day Years Used Date Former Smoker Alcohol Use Standard Drinks/Week Comments No 0 (1 standard drink = 0.6 oz pure alcoho l) Sex Assigned at Date Recorded Not on file documented as of this encounter Miscellaneous Notes Telephone Encounter - Janneth Sharma, RN - 03/30/2013 1:52 PM EDT Don's called the general surgery clinic to report that since changing from the leg bag to theregular bob bag, there is bright red blood in his bob bag and around his penis. Please refer to previous note for details. It sounds like the bleeding is a result of the irritation from multiple catheter attempts. Dr. Bowman from Urology was paged and asked to contact the patient in regards to this issue. An appointment was made with the urology clinic for Don to be seen for a voiding trial. Mrs Fatima was contacted with this information. documented in this encounter Plan of Treatment Upcoming Encounters Date Type Specialty Care Team Description 02/19/2022 Laboratory Appointment Lab 02/19/2022 Office Visit Cardiology Liz Poole PA [facility] Cardiology Dept [place], [place] [address] (Wo rk) 03/12/2022 Office Visit Cardiology Vitaliy Nobles MD [facility] CARDIOLOGY [place], [place] [address] (Wo rk) documented as of this encounter Visit Diagnoses Not on filedocumented in this encounter Care Teams Heel Cementer Relationship Specialty Start Date End Date Angela Holliday APRN PCP - General 01/25/13 04/15/[address] [place] [address] documented as of this encounter
--- OUTSIDE RECORDS SUMMARY | 2022-02-06 13:41 | XMS_ITS | Encounter Summary ---
:1945 [place] [address] Care Team Providers Name Role Phone MiyaLokeshAngela STACIE Primary Care Provider Encounter Details Date Type Department Care Team Description 03/28/2013 Anesthesia Event Main Operating Room Meredith Calvert MD [facility] [place] [address] [facility] Nolvia Riojas PA [facility] [place] [address] [place] [address] Anesthesia Record Procedure Summary Procedure Name Responsible Anesthesia Start Anesthesia Stop Time Anesthesiologist Time THYROIDECTOMYRenato Sharon K, MD 03/28/13 1003 03/28/13 131 3 TOTAL OR COMPLETE (WRVU 15.04) (N/A Neck) Events Date Time Event Comment 03/28/2013 0913 1003 Start 1007 AN Verify 1007 An Start Data 1014 An Induction 1016 An Intubation 1020 Anesthesia Ready 1040 Break/Relief In 1053 Break/Relief Out 1159 Break/Relief In 1300 Extubation/LMA Out 1300 an stop data 1313 Stop Name Total Midazolam 2 mg fentaNYL 100 mcg Propofol 300 mg Rocuronium 50 mg PHENYLephrine 440 mcg ceFAZolin (ANCEF) 2g in dextrose 5% 50 mL 2 g PHENYLephrine INF 905 mcg Labetalol 40 mg lactated ringers infusion 1,000 mL 0 mL Agents Name O2 Air Sevoflurane (et) Blood No blood administrations on file. Lines, Drains, and Airways Type Details Placement Removal Incision 03/28/13; neck; 03/28/13 0000 by 07/27/17 0000 b y 07/27/17 Chapin Pittman RN Murray-Duch esne, Jillian M, RN PIV 03/28/13; 0920; 03/28/13 0920 by 07/13/17 0648 b y amiodarone infiltrate; Elizabeth Ferrer, Portillo Handley, site symptomatic; RN 07/13/17; 0648 (RETIRED) Mask Ventilation: Easy 03/28/13 1016 by 03/28/13 1300 by Non-Surgical Airway (1); ETT Type: Cuffed, Tessa Rice, Tessa Shea, NIM; ETT Size: 7 mm Lumbar/CSF Drain 03/28/13; 1146; neck; 03/28/13 1146 by 07/27/17 0000 by 07/27/17 Brody Cabrera RN Murray-Duchesn e, Jillian M, RN documented in this encounter Social History Tobacco Use Types Packs/Day Years Used Date Former Smoker Alcohol Use Standard Drinks/Week Comments No 0 (1 standard drink = 0.6 oz pure alcoho l) Sex Assigned at Date Recorded Not on file documented as of this encounter OR Notes Anesthesia Postprocedure Evaluation - Meredith Gross MD - 03/28/2013 1:58 PM EDT Patient: Don Fatima Procedure(s) Performed: Procedure(s): THYROIDECTOMY, TOTAL OR COMPLETE FACIAL NERVE MONITORING, SETUP Actual Anesthetic: general Patient location: PACU Post-op pain: Adequate analgesia Post-op nausea: no nausea or vomiting Last Vitals: Filed Vitals: 03/28/13 1330 BP: 200/101 Pulse: 82 Temp: Resp: 16 Post-op cardiovascular and respiratory status: is stable Level of consciousness: awake, alert and oriented Complications: no apparent complications and tolerated the procedure well Fluid Status: normal Pt w/ full bladder by bladder scan. Unsuccessful attempt @ straight cath by PACU staff. Urology called to assist w/ catheterization. Anesthesia Preprocedure Evaluation - Meredith Gross MD - 01/25/2013 4:02 PM EDT Pre-Anesthesia Evaluation for: Don Fatima a 67 y.o. male. Procedure(s): THYROIDECTOMY, TOTAL OR COMPLETE FACIAL NERVE MONITORING, SETUP Patient Active Problem List Diagnoses ??? Goiter ??? Seborrheic psoriasis- scalp and ingtergluteal area ??? Skin lesion of chest wall ??? Melanoma Past Medical History Diagnosis Date ??? Melanoma 2006 mid back No past surgical history on file. History Substance Use Topics ??? Smoking status: Former Smoker ??? Smokeless tobacco: Not on file ??? Alcohol Use: No History Drug Use No Known Allergies Medications: MAR and/or home medications have been reviewed. ECG Review 01/25/13 ECG: Normal sinus rhythm Inferior infarct Abnormal ECG When compared with ECG of 27-JAN-2006 12:38, No significant change was found Physical Exam: There were no vitals filed for this visit. There is no height or weight on file to calculate BMI. Airway Assessment: Mallampati: III TM distance: >3 FB Neck ROM: full Proven airway 02/12/06: Santiago 2, grade 1. Cardiovascular Assessment: PE comment: EKG 01/25/13: NSR, inferior infarct, no significant change since 01/27/06 EKG. Pulmonary Assessment: Dental Assessment: (+) upper dentures and lower dentures Misc Assessment: IV access: Peripheral line Anesthesia Plan: ASA 3 general, with a(n) intravenous induction 84kg 68M with PMH per above significant for HTN, DM2, GERD(well controlled), melanoma back/flank s/pexcision 2005 with multinodular goiter to OR on 03/28/13 for total thyroidectomy with facial nerve monitoring. MARIA VICTORIA - on CPAP Psoriasis Former smoker - quit more than 20 yrs ago, 25+py No recent URI No hx anesthetic problems Last ASA 8 All: NKDA NPO: Solids 2030, liquids 0600(blk coffee) Code: Full Labs: Pending for morning of surgery. Code status: Full code 01/25/13 CXR - NAD 01/25/13 ECG - IMI, nsc from 01/2006 Anesthesia plan: GETA, neuromonitoring ETT, Cefazolin 2 gm IV ordered by surgeon Tessa Rice MD Anesthesia CA-3 [phone] Region - Other Informed Consent: Anesthetic plan and risks discussed with patient. Use of blood products discussed with patient whom consented to blood products. Plan discussed with attending. Misc. Assessment: documented in this encounter Plan of Treatment Upcoming Encounters Date Type Specialty Care Team Description 02/19/2022 Laboratory Appointment Lab 02/19/2022 Office Visit Cardiology Liz Poole PA [facility] Cardiology Dept [place], [place] [address] (Wo rk) 03/12/2022 Office Visit Cardiology Vitaliy Nobles MD [facility] CARDIOLOGY [place], [place] [address] (Wo rk) documented as of this encounter Visit Diagnoses Not on filedocumented in this encounter Administered Medications Inactive Administered Medications - up to 3 most recent administrations Medication Order MAR Action Action Date Dose Rate Site ceFAZolin (ANCEF) 2g in dextrose 5% Given 03/28/2013 10:27 AM ED T 2 g 50 mL 2 g, Intravenous, EVERY 3 HOURS, First dose on Wed03/28/13 at 0900, Until Discontinued, Intra-Operative (Intra-Procedure), Indication for (Active or Suspected): Prophylaxis fentaNYL 50mcg/mL injection Given 03/28/2013 10:13 AM EDT 100 mcg PRN, Starting on Wed03/28/13 at 1013, Until Wed03/28/13 at 1315, Pain, Anesthesia Intra-op, Routine labetalol (NORMODYNE;TRANDATE) injection Given 03/28/2013 12:57 PM EDT 20 mg PRN, Starting on Wed03/28/13 at 1205, Until Wed03/28/13 at 1315, High Blood Pressure, Anesthesia Intra-op, Routine Given 03/28/2013 12:08 PM EDT 10 mg Given 03/28/2013 12:05 PM EDT 10 mg lactated ringers infusion 1,000 mL New Bag 03/28/2013 10:03 AM EDT mL 1,000 mL, at 100 mL/hr, Intravenous, CONTINUOUS, Starting on Wed03/28/13 at 0900, Until Wed03/28/13 at 1715, Day of Surgery (Day of Procedure) New Bag 03/28/2013 9:20 AM EDT 1,000 mLs 100 mL/hr midazolam (VERSED) injection Given 03/28/2013 10:03 AM EDT 2 mg PRN, Starting on Wed03/28/13 at 1003, Until Wed03/28/13 at 1315, Sleep, Anesthesia Intra-op, Routine PHENYLephrine (AMBREEN-SYNEPHRINE) Restarted 03/28/2013 12:17 PM 10 mcg/min 7.5 mL/hr 20 mg in sodium chloride 250 mL EDT infusion CONTINUOUS PRN, Starting on Wed03/28/13 at 1052, Until Wed03/28/13 at 1315, Anesthesia Intra-op, Routine Restarted 03/28/2013 11:53 AM EDT 15 mcg/min 11.3 mL/hr Restarted 03/28/2013 11:12 AM EDT 15 mcg/min 11.3 mL/hr PHENYLephrine HCl in NS (PF) Given 03/28/2013 12:18 PM EDT 40 mc g (AMBREEN-SYNEPHRINE) 0.8 mg/10 mL (80 mcg/mL) injection Syrg PRN, Starting on Wed03/28/13 at 1037, Until Wed03/28/13 at 1315, Anesthesia Intra-op, Routine Given 03/28/2013 11:58 AM EDT 40 mcg Given 03/28/2013 11:53 AM EDT 40 mcg propofol (DIPRIVAN) 10 mg/mL bolus injection Given 09/2012 11:03 AM EDT 50 mg (Anesthesia) PRN, Starting on Wed03/28/13 at 1100, Until Wed03/28/13 at 1315, Anesthesia Intra-op Given 03/28/2013 11:00 AM EDT 50 mg Given 03/28/2013 10:14 AM EDT 200 mg rocuronium (ZEMURON) injection Given 03/28/2013 10:14 AM EDT 50 mg PRN, Starting on Wed03/28/13 at 1014, Until Wed03/28/13 at 1315, Anesthesia Intra-op, Routine documented in this encounter Care Teams Rn Med Surg Relationship Specialty Start Date End Date Angela Holliday APRN PCP - General 01/25/13 04/15/[address] [place] [address] documented as of this encounter
--- OUTSIDE RECORDS SUMMARY | 2022-02-06 13:41 | XMS_ITS | Encounter Summary ---
:1945 Author Organization [place] [address] Care Team Providers Name Role Phone Angela Holliday APRN Primary Care Provider Encounter Details Date Type Department Care Team Description 03/30/2013 Telephone General Surgery at [facility] Cliff Nevarez, [place] [address] Social History Tobacco Use Types Packs/Day Years Used Date Former Smoker Alcohol Use Standard Drinks/Week Comments No 0 (1 standard drink = 0.6 oz pure alcoho l) Sex Assigned at Date Recorded Not on file documented as of this encounter Miscellaneous Notes Telephone Encounter - Cliff Nevarez RN - 03/30/2013 2:07 PM EDT The patient's called back and spoke to nurse Lagunas. She related that the patient has begun to again pass bright red blood in his catheter bag . The is unsure what to do. I called her back to let her know that General Surgery has noted to all the parties the sequence of events , according to the , that have occurred. We have also notified Urology of the need for an appointment. An appointment for a voiding trial was made for 04/05/13 at 11 am. We also paged from Urology and asked that he call the patient and discuss his current problems. When I spoke with the most recently I told her if the mar urinary bleeding continues, increasing pain begins, N&V or fever/chills to come to the ER. If emergent go to the nearest ER for assessment. Meantime she should be expecting a phone call from Dr. Bowman. I also suggested she speak again with his PCP and report his elevated sugars and see if she wants him to have insulin coverage for FS until his metformin kicks in. Plan: I told the I will call back at 4pm to how he is doing and if there is a plan in place they are comfortable with. documented in this encounter Plan of Treatment Upcoming Encounters Date Type Specialty Care Team Description 02/19/2022 Laboratory Appointment Lab 02/19/2022 Office Visit Cardiology Liz Poole PA [facility] Cardiology Dept [place], [place] [address] (Wo rk) 03/12/2022 Office Visit Cardiology Vitaliy Nobles MD [facility] CARDIOLOGY [place], [place] [address] (Wo rk) documented as of this encounter Visit Diagnoses Not on filedocumented in this encounter Care Teams Personal Care Worker Relationship Specialty Start Date End Date Angela Holliday APRN PCP - General 01/25/13 04/15/[address] [place] [address] documented as of this encounter
--- OUTSIDE RECORDS SUMMARY | 2022-02-06 13:41 | XMS_ITS | Encounter Summary ---
:1945 Author Organization [facility] [place] [address] Care Team Providers Name Role Phone NeilSom conner STACIE Primary Care Provider Reason for Visit Reason Comments Establish Care OBST GOITER Encounter Details Date Type Department Care Team Description 01/25/2013 Office Visit General Surgery at [facility] [place] colloid, [place] [facility] [place] Eliseo nodular (Primary Dx) [facility] [place] GENERAL SURGERY [id number] [place], [place] [id number] [phone] Social History Tobacco Use Types Packs/Day Years Used Date Former Smoker Alcohol Use Standard Drinks/Week Comments No 0 (1 standard drink = 0.6 oz pure alcoho l) Sex Assigned at Date Recorded Not on file documented as of this encounter Progress Notes Manny Mcknight MD - 01/25/2013 2:51 PM EDT See H&P in Surgical Consult on 01/25/2013. documented in this encounter H&P Notes Manny Mcknight MD - 01/25/2013 2:52 PM EDT Reason for Visit: Don Fatima is a 67 y.o. male who is seen in consultation per SOM HOLLIDAY APRN and Elijah Elias MD because of an enlarging MNG. History of Present Illness: He has been aware of having a thyroid nodule since 2003. He has been followed intermittently with thyroid US and TFT's. Recently his pcp noted that his thyroid was continuing to enlarge, and his tft's were increasing. He was referred to Dr. Elias for evaluation US revealed: THYROID ULTRASOUND: Indication: Thyroid nodule on prior study; Considering FNA - clarify size, position and US characteristics Date: 01/25/2013 Comparison: Real time images of the thyroid gland were obtained using a SonoSiAkeLex MicroMaxx and an HFL38/13-6 broadband linear array transducer. [...] measuring 1.8cm or more atall visible levels. He has no family history of thyroid disease. He has no history of head or neck irradiation. He has no dysphagia but c/o some SOB and has had worsening sleep apnea over the past year. This has been felt on physical exam. ROS: No H/O asthma, NC, stroke, pulmonary embolus or phlebitis. Comprehensive review of systems otherwise negative and non-contributory. PMSH: Surgical history: WLE with SLNB of melanoma; piloidal cyst excision; ORIF mandible Active medical problems: NIDDM; HTN; sleep apnea Tobacco: (x) Former Smoker, >25 Pack-years, discontinued at age 41. ETOH: none I have reviewed the relevant laboratory tests and imaging studies. Allergies as of 01/25/2013 ??? (No Known Allergies) Current Outpatient Prescriptions on File Prior to Visit Medication Sig Dispense Refill ??? aspirin 81 mg EC tablet Take [...] daily. ??? rOPINIRole (REQUIP) 2 mg tablet Take 2 mg by mouth nightly. ??? metoprolol-hydrochlorothiazide (LOPRESSOR HCT) 50-25 mg per tablet Take 1 tablet by mouth 2 times daily. ??? clobetasol (TEMOVATE) 0.05 % external solution Apply twice daily for 2 weeks then on weekends for psoriasis 50 mL 1 ??? fluocinolone acetonide (SYNALAR) 0.01 % external solution Twice daily to less severe areas of psoriasis 60 mL 2 ??? omeprazole (PRILOSEC) 20 mg capsule Take 20 mg by mouth daily. ??? DISCONTD: hydrochlorothiazide (HYDRODIURIL) 25 mg tablet Take by mouth daily. ??? glyBURIDE (DIABETA) 5 mg tablet 5MG = 1 Tablet(s), PO, Once daily ??? ketoconazole (NIZORAL) 2 % shampoo 1 Appl(s), Top, Once daily ??? DISCONTD: CIS Free Text Med - Aspirin ??? DISCONTD: metFORMIN (GLUCOPHAGE) 850 mg tablet 850MG = 1 Tablet(s), PO, Twice daily ??? DISCONTD: metoprolol tartrate (LOPRESSOR) 50 mg tablet 50mg, PO, Once daily ??? DISCONTD: lisinopril (PRINIVIL;ZESTRIL) 10 mg tablet PE: General: Well developed, well nourished 67 y.o. male in NAD. Skin: warm, dry, good turgor, nonicteric. Neck: He has a markedly enlarged, movable, nontender thyroid bilaterally, extending below the clavicles, with no adenopathy. HEENT: HENRY, EOM's full, sclera nonicteric, otherwise unremarkable. Back: no tenderness to AP or lateral compression. Lungs: Clear BS bilaterally without wheezes, rales or rhonchi. Card: Heart sounds normal, no murmurs, gallops, rubs or S3. Extremities: warm, no edema. Neuro: Awake, alert and oriented x 3., [place] negative bilaterally. Imp: Enlarging MNG with toxicity. Plan: Recommend proceeding with total thyroidectomy. He understands the implications, indications, potential complications and agrees to proceed. Will sign in through [facility]. Consent is signed. Send copy to Dr. SOM HOLLIDAY APRN and Elijah Elias MD. documented in this encounter Plan of Treatment Upcoming Encounters Date Type Specialty Care Team Description 02/19/2022 Laboratory Appointment Lab 02/19/2022 Office Visit Cardiology Liz Poole PA [facility] Cardiology Dept [place], [place] [address] (Wo rk) 03/12/2022 Office Visit Cardiology Vitaliy Nobles MD [facility] CARDIOLOGY [place], [place] [address] (Wo rk) documented as of this encounter Procedures Procedure Name Priority Date/Time Associated Diagnosis Comme nts XR CHEST PA AND Routine 01/25/2013 1:17 PM Result s for this LATERAL EDT procedure are i n the results section. EKG 12-LEAD Routine 01/25/2013 12:20 PM Goiter colloid, Resul ts for this EDT toxic, nodular procedure are in the results section. FACIAL NERVE Routine 01/25/2013 10:59 AM MONITORING, SETUP EDT THYROIDECTOMY,TOTAL Routine 01/25/2013 10:59 AM OR COMPLETE EDT documented in this encounter Results XR chest routine PA & lateral (01/25/2013 1:17 PM EDT) Anatomical Region Laterality Modality Chest N/A Radiographic Imaging Specimen (Source) Anatomical Collection Method Collection Time Re ceived Time Location / / Volume Laterality 01/25/2013 1:17 PM EDT Narrative 01/25/2013 1:51 PM EDT Examination CHEST ROUTINE 2 VIEWS Clinical History preop ??thyroid surgery Comparison 01/27/2006. Technique Findings There is no interval change. ??The lungs are clear. ??The cardiomediastinal silhouette appears normal. ??No pleural effusion or significant bony abnormality is seen. Impression No significant abnormality or interval c hange. Procedure Note Daniele Mary MD - 01/25/2013Formatt ing of this note might be different from the original. Examination CHEST ROUTINE 2 VIEWS Clinical History preop thyroid surgery Comparison 01/27/2006. Technique Findings There is no interval change. The lungs a re clear. The cardiomediastinal silhouette appears normal. No pleural ef fusion or significant bony abnormality is seen. Impression No significant abnormality or interval c hange. Manny Mcknight MD IMG DX ORDERABLES EKG 12 Lead (01/25/2013 12:20 PM EDT) Component Value Ref Range Test Analysis Performed Pathologis t Method Time At Signature Ventricular rate 74 BPM MUSE SYSTEM Atrial Rate 74 BPM MUSE SYSTEM P-R Interval 158 ms MUSE SYSTEM QRS Duration 86 ms MUSE SYSTEM Q-T Interval 366 ms MUSE SYSTEM QTC Calculated 406 ms MUSE SYSTEM (Bezet) Calculated P [place] 52 degrees MUSE SYSTEM Calculated R [place] 0 degrees MUSE SYSTEM Calculated T [place] 40 degrees MUSE SYSTEM INTERPRETATION Normal sinus rhythm MUSE SYSTEM Inferior infarct (cited on or before 25-JAN-2013) When compared with ECG of 27-JAN-2006 12:38, No significant change was found Confirmed by MD Susan, Dwayne Gomes ([id number]) on 01/25/2013 4:06:13 P M Specimen Anatomical Collection Method Collection Time Receive d Time (Source) Location / / Volume Laterality 01/25/2013 12:20 01/25/2013 4:06 PM EDT PM EDT Manny Mcknight MD ECG ORDERABLES Performing Organization Address City/State/ZIP Code Phon e Number MUSE SYSTEM documented in this encounter Visit Diagnoses Diagnosis Goiter colloid, toxic, nodular - Primary Toxic nodular goiter, unspecified type, without mention of thyrotoxic crisis or storm documented in this encounter Care Teams Stone Lathe Operator Relationship Specialty Start Date End Date Som Holliday APRN PCP - General 01/25/13 04/15/[address] [place] [address] documented as of this encounter
--- OUTSIDE RECORDS SUMMARY | 2022-02-06 13:41 | XMS_ITS | Encounter Summary ---
:1945 Author Organization [facility] [place] [address] Care Team Providers Name Role Phone Brody Berrios MD Primary Care Provider Reason for Visit Reason Comments Annual Exam Encounter Details Date Type Department Care Team Description 09/22/2011 Follow-Up Dermatology Arik Tipton Psoriasis (Primary Dx); [facility] MD Jorge Personal history of other malignant neop lasm of skin Drive [place] [phone] DERMATOLOGY DEPT . [place] [phone] (Wo rk) Social History Tobacco Use Types Packs/Day Years Used Date Former Smoker Alcohol Use Standard Drinks/Week Comments No 0 (1 standard drink = 0.6 oz pure alcoho l) Sex Assigned at Date Recorded Not on file documented as of this encounter Progress Notes Shayy Villanueva LPN - 09/22/2011 8:37 AM EST DERMATOLOGY NOTE Date of service: 09/22/2011 Don Fatima : 1945 Provider: Arik Tipton MD PROBLEM: Yearly skin cancer screening HPI Don Fatima is a 66 y.o. year old self referred male . 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 His only complaints tail bone and scalp itch. Yesterday was seen in the ED for work -up of a stroke-negative work up. PAST MEDICAL HX:diabetic,history of pilonidal cyst treated with surgery. SOCIAL HX: checks his moles. FAMILY HX: neg for psoriasis ADR: No Known Allergies MEDS: Current outpatient prescriptions ordered prior to encounter Medication Sig Dispense Refill ??? omeprazole (PRILOSEC) 20 mg capsule Take 20 mg by mouth daily. ??? CIS Free Text Med - Aspirin ??? metFORMIN (GLUCOPHAGE) 850 mg tablet 850MG = 1 Tablet(s), PO, Twice daily ??? glyBURIDE (DIABETA) 5 mg tablet 5MG = 1 Tablet(s), PO, Once daily ??? ketoconazole (NIZORAL) 2 % shampoo 1 Appl(s), Top, Once daily ??? metoprolol tartrate (LOPRESSOR) 50 mg tablet 50mg, PO, Once daily ??? lisinopril (PRINIVIL;ZESTRIL) 10 mg tablet ??? fluocinolone acetonide (SYNALAR) 0.01 % external solution apply to scalp Top Twice daily ??? DISCONTD: Betamethasone Valerate (LUXIQ) 0.12 % Foam 1 Appl(s), Top, as directed ??? hydrochlorothiazide (HYDRODIURIL) 25 mg tablet Take by mouth daily. ROS General: feeling well Skin: denies other skin complaints EXAM General: NAD, pleasant, cooperative Skin:A total body skin exam except for the genitalia was performed. This includes examination of theskin of the face, ears, neck, chest, axillae, left and right upper and lower extremities, hands, feet, abdomen, back, and buttocks. The genitalia, perineum, and perianal areas were examined. No lymphadenopathy, including the supraclavicular, cervical, axillary, and inguinal areas. Melanoma excision site scar was examined and palpated. There was no increase in pigmentation or induration at this site. Significant skin findings: A.Scattered well-demarcated, thick erythematous plaques with silvery scale distributed:scalp and tail bone. B. Multiple, 0.3-0.5cm, medium-brown, evenly-pigmented macules and papules. All with regular pigmentpattern on dermoscopy. No pigmented lesions suspicious for melanoma. ASSESSMENT/PLAN: A. Psoriasis of scalp and tail bone. Treat with clobetasol solution bid.next step will be LCD Shampoo and derma zinc in clobetasol. B. Benign appearing nevi with even pigmentation and well defined margins are noted. C. onychomycosis of toenails. No newskin cancers or reoccurrences. Prescriptions: clobetasol solution bid to scalp and tail bone. Return to clinic:one year. Note initiated by: SHAYY VILLANUEVA LPN Routed to physician for review and changes: Arik Tipton MD Section of Dermatology [facility] documented in this encounter Plan of Treatment Upcoming Encounters Date Type Specialty Care Team Description 02/19/2022 Laboratory Appointment Lab 02/19/2022 Office Visit Cardiology Liz Poole PA [facility] Cardiology Dept [place], [place] [address] (Wo rk) 03/12/2022 Office Visit Cardiology Vitaliy Nobles MD [facility] CARDIOLOGY [place], [place] [address] (Wo rk) documented as of this encounter Visit Diagnoses Diagnosis Psoriasis - Primary Other psoriasis Personal history of other malignant neop lasm of skin documented in this encounter Care Teams Patrol Deputy Sheriff Relationship Specialty Start Date End Date Brody Berrios MD PCP - General 09/22/11 10/03/[address] [place] [address] [address] [place] [address] documented as of this encounter
--- OUTSIDE RECORDS SUMMARY | 2022-02-06 13:41 | XMS_ITS | Encounter Summary ---
:1945 Author Organization [facility] [place] [address] Care Team Providers Name Role Phone MiyaLokeshAngela STACIE Primary Care Provider Reason for Visit Reason Onset Date Comments Post-op Problem 04/05/2013 voiding trial Encounter Details Date Type Department Care Team Description 04/05/2013 Telephone Urology at [facility] Blade Smiht, Post-op Problem [facility] (voiding trial) [place] [address] UROLOGY DEPT [place] [phone] (Wo rk) Social History Tobacco Use Types Packs/Day Years Used Date Former Smoker Alcohol Use Standard Drinks/Week Comments No 0 (1 standard drink = 0.6 oz pure alcoho l) Sex Assigned at Date Recorded Not on file documented as of this encounter Miscellaneous Notes Telephone Encounter - Simi Santillan RN - 04/05/2013 2:19 PM EDT Pt. Returns after walking and drinking water for 2 hours. He voided twice since he left. Voidingwaspainful. PVR done = 0. Informed Dr. Smith who will see pt now. Telephone Encounter - Simi Santillan RN - 04/05/2013 11:47 AM EDT Pt presents for a voiding trial with a catheter attached to a leg bag - 1 week after a thyroidectomy. Urine culture obtained from the catheter. 90cc of NS instilled and pt felt pressure to void. Balloon deflated and catheter removed. Immediately voided 100cc, blood tinged urine. He denied pain. PVR 0.Dr. Smith in to see pt. Pt asked to drink and walk around. Dr. Smith wants patient to return here and void and perform another PVR. documented in this encounter Plan of Treatment Upcoming Encounters Date Type Specialty Care Team Description 02/19/2022 Laboratory Appointment Lab 02/19/2022 Office Visit Cardiology Liz Poole PA [facility] [place] [address] (Wo rk) 03/12/2022 Office Visit Cardiology Vitaliy Nobles MD [facility] CARDIOLOGY [place], [place] [address] (Wo rk) documented as of this encounter Visit Diagnoses Not on filedocumented in this encounter Care Teams Workers Compensation Claims Adjuster Relationship Specialty Start Date End Date Angela Holliday APRN PCP - General 01/25/13 04/15/[address] [place] [address] documented as of this encounter
--- OUTSIDE RECORDS SUMMARY | 2022-02-06 13:41 | XMS_ITS | Encounter Summary ---
:1945 Author Organization [facility] [place] [address] Care Team Providers Name Role Phone Miya Angela STACIE Primary Care Provider Encounter Details Date Type Department Care Team Description 04/04/2013 Telephone Urology at [facility] Parker Sanchez MD [facility] [place] [address] UROLOGY DEPT [phone] [place], [place] [address] (Wo rk) Social History Tobacco Use Types Packs/Day Years Used Date Former Smoker Alcohol Use Standard Drinks/Week Comments No 0 (1 standard drink = 0.6 oz pure alcoho l) Sex Assigned at Date Recorded Not on file documented as of this encounter Miscellaneous Notes Telephone Encounter - Parker Sanchez MD - 04/04/2013 11:24 AM EDT Patient with indwelling bob. Having spasms vs temporary occlusion with blood clot. Bob currentlydraining Patient due for voiding trial tomorrow He said he can wait Parker Sanchez MD [phone] documented in this encounter Plan of Treatment Upcoming Encounters Date Type Specialty Care Team Description 02/19/2022 Laboratory Appointment Lab 02/19/2022 Office Visit Cardiology Liz Poole PA [facility] er Cardiology Dept [place], [place] [address] (Wo rk) 03/12/2022 Office Visit Cardiology Vitaliy Nobles MD [facility] CARDIOLOGY [place], [place] [address] (Wo rk) documented as of this encounter Visit Diagnoses Not on filedocumented in this encounter Care Teams Control Systems Drafting Officer Relationship Specialty Start Date End Date Angela Holliday APRN PCP - General 01/25/13 [phone] [place] [address] documented as of this encounter
--- OUTSIDE RECORDS SUMMARY | 2022-02-06 13:41 | XMS_ITS | Encounter Summary ---
:1945 Author Organization [facility] [place] [address] Care Team Providers Name Role Phone Unknown Primary Care Provider Unavailable Reason for Visit Reason Comments Other Encounter Details Date Type Department Care Team Description 10/05/2012 Telephone Dermatology at [facility] Rigoberto Garcia III, [address] [place] [address] [facility] [phone] [address] [place] [phone] (Wo rk) Social History Tobacco Use Types Packs/Day Years Used Date Former Smoker Alcohol Use Standard Drinks/Week Comments No 0 (1 standard drink = 0.6 oz pure alcoho l) Sex Assigned at Date Recorded Not on file documented as of this encounter Miscellaneous Notes Telephone Encounter - Rigoberto Garcia III, MD - 10/05/2012 6:03 PM EDT I called and advised the pt of the report: Skin, left mid chest, shave biopsy: Compound dysplastic nevus with moderate atypia, close to peripheral margins in the planes of sectioning, and extending down a follicle to be focally present at the base. He will call if he has problems as the site heals and we will see him back in 8- 12 months or before if problems arise. documented in this encounter Plan of Treatment Upcoming Encounters Date Type Specialty Care Team Description 02/19/2022 Laboratory Appointment Lab 02/19/2022 Office Visit Cardiology Liz Poole PA [facility] Cardiology Dept [place], [place] [address] (Wo rk) 03/12/2022 Office Visit Cardiology Vitaliy Nobles MD [facility] ER CARDIOLOGY [place], [place] [address] (Wo rk) documented as of this encounter Visit Diagnoses Not on filedocumented in this encounter Care Teams Body Mechanic Relationship Specialty Start Date End Date Unknown PCP - General 10/04/12 01/24/13 None documented as of this encounter
--- OUTSIDE RECORDS SUMMARY | 2022-02-06 13:41 | XMS_ITS | Encounter Summary ---
:1945 Author Organization [facility] [place] [address] Care Team Providers Name Role Phone Angela Holliday APRN Primary Care Provider Encounter Details Date Type Department Care Team Description 04/05/2013 [place] [address] Social History Tobacco Use Types Packs/Day Years Used Date Former Smoker Alcohol Use Standard Drinks/Week Comments No 0 (1 standard drink = 0.6 oz pure alcoho l) Sex Assigned at Date Recorded Not on file documented as of this encounter Plan of Treatment Upcoming Encounters Date Type Specialty Care Team Description 02/19/2022 Laboratory Appointment Lab 02/19/2022 Office Visit Cardiology Liz Poole PA [facility] Medical [facility] er Cardiology Dept [place], [place] [address] (Wo rk) 03/12/2022 Office Visit Cardiology Vitaliy Nobles MD [facility] ER CARDIOLOGY [place], [place] [address] (Wo rk) documented as of this encounter Visit Diagnoses Not on filedocumented in this encounter Care Teams Furniture Shampooer Relationship Specialty Start Date End Date Angela Holliday APRN PCP - General 01/25/13 04/15/[address] [place] [id number] documented as of this encounter
--- OUTSIDE RECORDS SUMMARY | 2022-02-06 13:43 | XMS_ITS ---
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 Problem Critical ischemia I99.8 Active of lower extremity Problem Atherosclerosis I70.90 Active 3871 6007 Problem Type 2 diabetes E11.628 Active mellitus with other skin complications Problem 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 40 ; Acquired deformi ty of right foot M21.961 ; L luis term current use of i nsulin Z79.4 ; History of art erial bypass of lower extremi ty Z95.828 ; Atherosclerosis I70.90 and History of Lisfr anc amputation of fo ot Z89.439 [facility] Feb, Type 2 diabet es mellitus [address] [place], [place] with diabe tic neuropathy, [address] unspecified E11. 40 ; Acquired deformi ty of right foot M21.961 ; L luis term current use of i nsulin Z79.4 ; History of art erial bypass of lower extremi ty Z95.828 ; Atherosclerosis I70.90 and History of Lisfr anc amputation of fo ot Z89.439 [facility] November, [place] [address] [facility] [facility] November, Type 2 [place] [address] with diabeti c neuropathy, unspecified E11. 40 ; Acquired deformi ty of right foot M21.961 ; L luis term current use of i nsulin Z79.4 ; History of art erial bypass of lower extremi ty Z95.828 ; Atherosclerosis I70.90 and History of Lisfr anc amputation of fo ot Z89.439 [facility] 10 Aug, 2019 Type 2 [place] [address] with other skin complications E1 1.628 ; Tinea pedis of l eft foot B35.3 ; Type 2 d iabetes mellitus with di abetic neuropathy, unsp ecified E11.40 ; Acquire d deformity of right foot M2 1.961 ; custodial current use of insulin Z79.4 ; History of arterial bypass of lower extremity Z95.828 and Athe rosclerosis I70.90 [facility] Jun, [place] [address] [address] Jun, [place] [address] [address] Jun, Type 2 diabet es mellitus [place], [place] with other skin [address] complications E1 1.628 ; Acquired deformi ty of right foot M21.961 ; T ype 2 diabetes mellitu s with diabetic neuropa thy, unspecified E11. 40 ; manager terminal current use of insulin Z79.4 and Histor y of arterial bypass of lower extremity Z95.82 8 [facility] Feb, Type 2 [place] [address] with other s kin complications E1 1.628 ; Acquired deformi ty of right foot M21.961 ; T ype 2 diabetes mellitu s with diabetic neuropa thy, unspecified E11. 40 ; custodial current use of insulin Z79.4 and Histor y of arterial bypass of lower extremity Z95.82 8 [facility] November, Tinea pedis o f left foot [place], [place] B35.3 ; Ty pe 2 diabetes [address] mellitus with ot her skin complications E1 1.628 ; Acquired deformi ty of right foot M21.961 ; T ype 2 diabetes mellitu s with diabetic neuropa thy, unspecified E11. 40 ; manager terminal current use of insulin Z79.4 and Histor y of arterial bypass of lower extremity Z95.82 8 [facility] November, [place] [address] [address] Aug, Type 2 diabet es mellitus [place], [place] with diabe tic neuropathy, [address] unspecified E11. 40 ; Acquired deformi ty of right foot M21.961 ; P eripheral arterial disease I73.9 ; History of arter ial bypass of lower extremi ty Z95.828 ; custodial curren t use of insulin Z79.4 an d History of Lisfranc amputat ion of foot Z89.439 UNKNOWN Jul, [facility] 11 Jun, 2018 Type 2 [place] [address] with diabeti c neuropathy, unspecified E11. 40 [facility] Apr, Edema of both legs R60.0 ; [place], [place] Acquired d eformity of right [address] foot M21.961 ; P eripheral arterial disease I73.9 ; History of arter ial bypass of lower extremi ty Z95.828 ; manager terminal curren t use of insulin Z79.4 an d Type 2 diabetes mellitu s with diabetic neuropa thy, unspecified E11. [address] [facility] Mar, [place] [address] [address] Mar, Edema of both legs R60.0 ; [place], [place] Acquired d eformity of right [address] foot M21.961 ; P eripheral arterial disease I73.9 ; History of arter ial bypass of lower extremi ty Z95.828 ; manager terminal curren t use of insulin Z79.4 an d Type 2 diabetes mellitu s with diabetic neuropa thy, unspecified E11. 40 [facility] Feb, Edema of both legs R60.0 ; [place] [address] Ulcer of lef t calf, limited to breakdown of skin L97.221 ; Acquired defor mity of right foot M21.9 61 ; Peripheral arter ial disease I73.9 ; History of arterial bypass of lower extremity Z95.828 ; Long t erm current use of insulin Z 79.4 and Type 2 diabetes mellitus with diabetic ne uropathy, unspecified E11. 40 [facility] 1 Feb, OFFICE [facility] [place] [address] [facility] Feb, Edema of both legs R60.0 ; [place] [address] Ulcer of rig ht calf, limited to breakdown of skin L97.211 ; Ulcer of left calf, limited to break down of skin L97.221 ; Acquir ed deformity of right foot M2 1.961 ; Peripheral arter ial disease I73.9 ; History of arterial bypass of lower extremity Z95.828 ; Long t erm current use of insulin Z 79.4 and Type 2 diabetes mellitus with diabetic ne uropathy, unspecified E11. 40 [facility] [address] [facility] Feb, [place] [address] [facility] [address] [facility] [address] Feb, [place] [address] [facility] [address] [facility] Jan, [place] [address] [facility] [address] [facility] Jan, [place] [address] [facility] [address] Jan, [place] [address] [facility] [address] Jan, [place] [address] [facility] [address] Jan, [place] [address] [facility] [address] Dec, [place] [address] [facility] [address] Dec, [place] [address] [facility] [address] Dec, [place] [address] [facility] [address] Dec, [place] [address] [facility] Dec, [place] [address] [facility] [address] [facility] Dec, [place] [address] [facility] November, [place] [address] [facility] November, [place] [address] [facility] November, [place] [address] [facility] November, [place] [address] [facility] November, [place] [address] [facility] [address] [facility] November, [place] [address] UNKNOWN November, [facility] [address] November, [place]ICE [place] [address] [facility] November, [place] [address] [facility] Oct, [place], [place] [address] [facility] [address] [facility] Oct, [place] [address] [facility] [address] [facility] Oct, [place] [address] [facility] [address] 18 Oct, 2017 [place] [address] [facility] 16 Oct, 2017 [place] [address] [facility] [address] 16 Oct, 2017 [facility] [address] [facility] [address] [facility] Oct, [place] [address] [facility] [address] [facility] Oct, [place] [address] [facility] [address] [facility] Oct, [place] [address] [facility] [address] Sep, [facility] [address] [facility] Sep, [place] [address] [facility] [address] Sep, [place] [address] [facility] [address] Sep, [place] [address] [facility] [address] Sep, [place] [address] [facility] [address] Sep, Critical ischemi a of lower [place] [address] extremity I 99.8 ; Local infection of the skin and subcutaneous tis lindsey, unspecified L08. 9 and Type 2 diabetes mellitu s with other skin complicatio ns E11.628 [facility] [address] [facility] Sep, [place] [address] [facility] [address] [facility] [address] Sep, [place] [address] [facility] [address] [facility] Sep, [place] [address] [facility] [address] [facility] [address] 14 Sep, [address] [place] [address] [facility] [address] [facility] Sep, [place] [address] [facility] [address] [facility] Sep, [place] [address] [facility] [address] [facility] Sep, [place] [address] [facility] [address] [facility] Sep, [place] [address] [facility] [address] [facility] Aug, [place] [address] [facility] [address] Aug, [facility] [address] [facility] [address] Aug, [place] [address] [facility] [address] [facility] Aug, [place] [address] [facility] [address] [facility] Aug, [place] [address] [facility] [address] [facility] Aug, [place] [address] ORTHOPEDIC OFFICE [address] [facility] Aug, Pre-op exam Z01.818 [place] [address] [facility] [address] [facility] Aug, [place] [address] [facility] Aug, [place] [address] [facility] [address] [facility] Aug, [place] [address] IMMUNIZATIONS No Known Immunizations SOCIAL HISTORY Qualifiers Date Former Smoker REASON FOR REFERRAL FUNCTIONAL STATUS PLAN OF CARE Activity Details Future Test PREV: DIABETIC FOOT EXAM 10 VITAL SIGNS Height 68 in 2020-06-05 Height 68 in 2020-03-06 Height 68 in 2019-12-07 Height 68 in 2019-09-04 Height 68 in 2019-06-28 Height 68 in 2019-03-07 Height 68 in 2018-12-07 Height 68 in 2018-09-07 Height 68 in 2018-07-05 Height 68 in 2018-05-11 Height 68 in 2018-04-13 Height 68 in 2018-03-22 Height 68 in 2018-03-15 Height 68 in 2017-09-14 Weight 198 lbs 2020-06-05 Weight 191 lbs 2020-03-06 Weight 197.0 lbs 2019-12-07 Weight 194.6 lbs 2019-09-04 Weight 192 lbs 2019-06-28 Weight 189.4 lbs 2019-03-07 Weight 190.0 lbs 2018-12-07 Weight 196.6 lbs 2018-09-07 Weight 193.7 lbs 2018-07-05 Weight 185.6 lbs 2018-05-11 Weight 180.8 lbs 2018-04-13 Weight 180 lbs 2017-09-14 BMI 30.10 kg/m2 2020-06-05 BMI 29.04 kg/m2 2020-03-06 BMI 29.95 kg/m2 2019-12-07 BMI 29.59 kg/m2 2019-09-04 BMI 29.19 kg/m2 2019-06-28 BMI 28.80 kg/m2 2019-03-07 BMI 28.89 kg/m2 2018-12-07 BMI 29.89 kg/m2 2018-09-07 BMI 29.45 kg/m2 2018-07-05 BMI 28.22 kg/m2 2018-05-11 BMI 27.49 kg/m2 2018-04-13 BMI 27.37 kg/m2 2017-09-14 Temperature 97.2 degrees Fahrenheit 2020-06-05 Temperature 97.4 degrees Fahrenheit 2020-03-06 Temperature 98.1 degrees Fahrenheit 2019-12-07 Temperature 97.9 degrees Fahrenheit 2019-09-04 Temperature 99.0 degrees Fahrenheit 2019-06-28 Temperature 98.4 degrees Fahrenheit 2019-03-07 Temperature 96.3 degrees Fahrenheit 2018-12-07 Temperature 99.7 degrees Fahrenheit 2018-09-07 Temperature 99.4 degrees Fahrenheit 2018-05-11 Temperature 98.5 degrees Fahrenheit 2018-04-13 Temperature 98.6 degrees Fahrenheit 2018-03-22 Temperature TYMPANIC:96.9 degrees Fahrenheit 2018-02 Temperature 98.6 degrees Fahrenheit 2017-09-14 Heart Rate 78 /min 2020-06-05 Heart Rate 73 /min 2020-03-06 Heart Rate 66 /min 2019-12-07 Heart Rate 73 /min 2019-09-04 Heart Rate 60 /min 2019-06-28 Heart Rate 61 /min 2019-03-07 Heart Rate 71 /min 2018-12-07 Heart Rate 77 /min 2018-09-07 Heart Rate 63 /min 2018-07-05 Heart Rate 70 /min 2018-05-11 Heart Rate 64 /min 2018-04-13 Heart Rate 63 /min 2018-03-22 Heart Rate 68 /min 2018-03-15 Heart Rate 82 /min 2017-09-14 Respiratory Rate 18 /min 2020-06-05 Respiratory Rate 18 /min 2020-03-06 Respiratory Rate 18 /min 2019-12-07 Respiratory Rate 18 /min 2019-09-04 Respiratory Rate 18 /min 2019-06-28 Respiratory Rate 18 /min 2019-03-07 Respiratory Rate 16 /min 2018-12-07 Respiratory Rate 16 /min 2018-09-07 Respiratory Rate 18 /min 2018-07-05 Respiratory Rate 18 /min 2018-05-11 Respiratory Rate 18 /min 2018-04-13 Respiratory Rate 16 /min 2018-03-22 Respiratory Rate 16 /min 2018-03-15 Respiratory Rate 16 /min 2017-09-14 Oximetry 96 % 2020-06-05 Oximetry 98 % 2020-03-06 Oximetry 96 % 2019-12-07 Oximetry 95 % 2019-09-04 Oximetry 95 % 2019-06-28 Oximetry 95 % 2019-03-07 Oximetry 96 % 2018-12-07 Oximetry 95 % 2018-09-07 Oximetry 96 % 2018-07-05 Oximetry 95 % 2018-05-11 Oximetry 94 % 2018-04-13 Oximetry 96 % 2018-03-22 Oximetry 98 % 2018-03-15 Oximetry 96 % 2017-09-14 Blood pressure systolic 181 mm Hg 2020-06-05 Blood pressure diastolic 94 mm Hg 2020-06-05 MEDICATIONS Medication Instructions Dosage Frequency Start End Duration Statu s Date Date Levothyroxine orally once a 1 tab(s) 24h Not -Taki Sodium 175 mcg day ng (0.175 mg) metFORMIN HCl orally twice a 1 tab(s) 12h Ac tive 850 mg day Dilaudid 2 mg orally every 4 1 tab(s) 4h No t-Taki hours ng HumaLOG 100 subcutaneously 15 Activ e units/mL tid prior to meals Magnesium Oxide as directed Acti ve 500 MG Turmeric 500 mg orally twice a 2 cap(s) 12h Active day Insulin as directed Active Glargine 100 UNIT/ML Iron Orally 1 tab 325 mg Active Combinations - once a day Aspirin 81 81 Orally Once a 1 tablet 24h 30 day(s) N ot-Taki MG day ng Furosemide 20 orally once a 1 tab(s) 24h Act delaney mg day -OTC, HERBALS Active Lancets - as directed Active Doxycycline orally 2 times a 1 cap(s) 12h 25 Mar, 21 days No t-Taki Hyclate hyclate day 2017 ng 100 mg Lantus 100 subcutaneously 22 24h Active units/mL daily Pen [place] Active Ciclopirox Externally Twice 1 application 12h Not-Taki Olamine 0.77 % a day to left foot ng Insulin Lispro as directed Activ e 100 UNIT/ML TYLENOL Not-Taki ARTHRITIS ng GELCAP Lisinopril 2.5 orally once a 1 tab(s) 24h Ac tive mg day Ferrous Sulfate Orally Once a 1 tablet 24h 30 day(s) Not-Taki 325 (65 Fe) MG day ng Melatonin 3 mg orally once (at 2 tab(s) Aug, Not-Taki bedtime) 2017 ng Warfarin Sodium orally once a 1 tab(s) 24h A ctive 2.5 mg day MAGNESIUM 2 24h Not-Taki CHLORIDE 250mh ng Atorvastatin Orally once a 1 tab(s) 24h Acti ve Calcium 20 MG day Ascorbic Acid Orally Once a 1 tablet 24h 30 day(s) A ctive 500 MG day Amiodarone HCl orally once a 1 tab(s) 24h No t-Taki 200 mg day ng Acetaminophen Orally every 6 1 capsule as 6h Active 500 MG hrs needed Metoprolol Orally Once a 1 capsule 24h 30 day(s) Act delaney Succinate 25 MG day PROCEDURES No Known procedures RESULTS Name Result Date Reference Range PREV: DIABETIC FOOT EXAM 2019-09-04 HEMOGLOBIN A1C 2018-09-27 HGA1C 7.4 CALC. MEAN GLUC HB2 reviously reported u HEMOGLOBIN A1C 2018-08-18 HGA1C 7.3 CALC. MEAN GLUC HB2 reviously reported u FERRITIN 2018-07-01 Ferritin 33 FERRITIN SED RATE 2018-01-11 ESR 19 0-20 CRP-INFLAM 2018-01-11 CRP <0.2 0.0-0.9 COMPMET 2018-01-11 GLUC 145 74-106 BUN 26 7-18 CREATS 1.08 0.55-1.30 EGFR >60 >=60 NA 140 136-144 K+ 4.4 3.7-5.0 CL 102 98-108 CO2 27 22-32 CA 9.2 8.5-10.1 TP 6.9 6.5-8.1 ALB 3.5 3.4-5.0 TBIL 0.7 0.3-1.2 DBIL 0.2 0.0-0.2 ALKP 68 46-116 AST 22 15-37 ALT 32 13-78 CBC WITH AUTO DIFF 2018-01-11 WBC 6.9 4.0-12.0 RBC 4.4 4.5-6.0 HGB 11.3 13.5-18.0 HCT 37.9 42.0-52.0 MCV 86 78-100 MCH 25.6 27.0-32.0 MCHC 29.8 32.0-36.0 RDW 16.7 11.0-14.0 PLT 247 140-440 MPV 8.7 7.4-11.0 ANC# 5.3 1.4-7.9 IG# 0.0 0.0-0.1 LY# 0.9 1.5-4.0 MO# 0.7 0.2-0.8 EO# 0.1 0.0-0.7 BA# 0.0 0.0-0.2 NE% 76.5 IG% 0.1 0.0-1.0 LY% 12.4 MO% 9.5 EO% 1.3 BA% 0.3 X Foot R 3V 2018-01-11 See Below For Report US LOWER EXTREMITY ARTERIAL BILATERAL 2017-12-28 See Below For Report PT/INR 2017-12-16 PT 15.0 9.3-11.4 INR 1.5 CBC WITH AUTO DIFF 2017-12-14 WBC 7.0 4.0-12.0 RBC 4.2 4.5-6.0 HGB 10.8 13.5-18.0 HCT 36.7 42.0-52.0 MCV 88 78-100 MCH 26.0 27.0-32.0 MCHC 29.4 32.0-36.0 RDW 16.5 11.0-14.0 PLT 310 140-440 MPV 8.9 7.4-11.0 ANC# 5.2 1.4-7.9 IG# 0.0 0.0-0.1 LY# 1.0 1.5-4.0 MO# 0.7 0.2-0.8 EO# 0.1 0.0-0.7 BA# 0.0 0.0-0.2 NE% 74.1 IG% 0.3 0.0-1.0 LY% 13.8 MO% 10.4 EO% 1.4 BA% 0.3 COMPMET 2017-12-14 GLUC 134 74-106 BUN 20 7-18 CREATS 0.93 0.55-1.30 EGFR >60 >=60 NA 139 136-144 K+ 4.2 3.7-5.0 CL 102 98-108 CO2 32 22-32 CA 9.0 8.5-10.1 TP 7.1 6.5-8.1 ALB 3.9 3.4-5.0 TBIL 0.4 0.3-1.2 DBIL 0.1 0.0-0.2 ALKP 75 46-116 AST 26 15-37 ALT 36 13-78 CRP-INFLAM 2017-12-14 CRP <0.2 0.0-0.9 SED RATE 2017-12-14 ESR 16 0-20 X Foot R 3V 2017-12-14 See Below For Report MULTIPLE LABS 2017-11-22 X Chest 1V 2017-11-23 See Below For Report MULTIPLE LABS 2017-11-15 PT/INR 2017-11-08 PT 26.9 9.3-11.4 INR 2.7 PT/INR 2017-11-05 PT 17.4 9.3-11.4 INR 1.8 SENSITIVITY ORGANISM 1 2017-10-12 Penicillin 16 Ampicillin 4 Ciprofloxacin <=0.5 Levofloxacin 2 Erythromycin <=0.25 Linezolid 2 Vancomycin <=0.5 Tetracycline <=1 Tigecycline <=0.12 CULTURE WOUND 2017-10-12 CULTURE ANAEROBIC 2017-10-12 RESULT 1 NANG72 X Chest 1V 2017-09-29 See Below For Report PT/INR 2017-09-28 PT 23.2 9.3-11.4 INR 2.4 SED RATE 2017-09-28 ESR 32 0-20 CRP-INFLAM 2017-09-28 CRP 1.0 0.0-0.9 COMPMET 2017-09-28 GLUC 126 74-106 BUN 27 7-18 CREATS 1.36 0.55-1.30 EGFR 51 >=60 NA 138 136-144 K+ 4.9 3.7-5.0 CL 99 98-108 CO2 29 22-32 CA 8.3 8.5-10.1 TP 6.0 6.5-8.1 ALB 2.7 3.4-5.0 TBIL 0.3 0.3-1.2 DBIL 0.1 0.0-0.2 ALKP 83 46-116 AST 27 15-37 ALT 39 13-78 CBC WITH AUTO DIFF 2017-09-28 WBC 9.2 4.0-12.0 RBC 3.6 4.5-6.0 HGB 9.3 13.5-18.0 HCT 33.0 42.0-52.0 MCV 92 78-100 MCH 25.9 27.0-32.0 MCHC 28.2 32.0-36.0 RDW 16.7 11.0-14.0 PLT 336 140-440 MPV 8.7 7.4-11.0 ANC# 7.7 1.4-7.9 IG# 0.1 0.0-0.1 LY# 0.8 1.5-4.0 MO# 0.6 0.2-0.8 EO# 0.1 0.0-0.7 BA# 0.0 0.0-0.2 NE% 83.7 IG% 0.9 0.0-1.0 LY% 8.1 MO% 6.8 EO% 1.1 BA% 0.3 GLUCOSE POINT OF CARE 2017-09-16 GLUCOSE 138 74-118 COMMENT1 CR C-ARM MINI 2017-09-16 See Below For Report MR Lower Ext R w/o ([id number]) 2017-09-16 See Below For Report X Foot R 3V 2017-09-16 See Below For Report GLUCOSE POINT OF CARE 2017-09-16 GLUCOSE 128 74-118 COMMENT1 SENSITIVITY ORGANISM 3 2017-09-16 Gentamicin <=1 Ciprofloxacin <=0.25 Levofloxacin <=0.12 SENSITIVITY ORGANISM 2 2017-09-16 Penicillin 4 Ampicillin <=2 Ciprofloxacin <=0.5 Levofloxacin 1 Erythromycin >=8 Linezolid 2 Vancomycin 1 Tetracycline <=1 Tigecycline <=0.12 PT/INR 2017-09-16 PT 11.2 9.3-11.4 INR 1.1 CULTURE OTHER 2017-09-16 CULTURE ANAEROBIC 2017-09-16 RESULT 1 NANG72 RESULT 2 RAEROB CBC WITH AUTO DIFF 2017-09-14 WBC 7.9 4.0-12.0 RBC 4.1 4.5-6.0 HGB 10.8 13.5-18.0 HCT 38.0 42.0-52.0 MCV 93 78-100 MCH 26.4 27.0-32.0 MCHC 28.4 32.0-36.0 RDW 17.2 11.0-14.0 PLT 320 140-440 MPV 8.7 7.4-11.0 ANC# 6.3 1.4-7.9 IG# 0.0 0.0-0.1 LY# 0.6 1.5-4.0 MO# 0.8 0.2-0.8 EO# 0.2 0.0-0.7 BA# 0.0 0.0-0.2 NE% 79.7 IG% 0.4 0.0-1.0 LY% 8.1 MO% 9.9 EO% 1.9 BA% 0.4 CRP-INFLAM 2017-09-14 CRP 0.8 0.0-0.9 SED RATE 2017-09-14 ESR 35 0-20 PT/INR 2017-09-14 PT 13.2 9.3-11.4 INR 1.3 BASEMET 2017-09-14 GLUC 134 74-106 BUN 26 7-18 CREATS 1.13 0.55-1.30 EGFR >60 >=60 NA 138 136-144 K+ 4.4 3.7-5.0 CL 100 98-108 CO2 31 22-32 CA 8.9 8.5-10.1 ALBUMIN 2017-09-09 ALB 3.3 3.4-5.0 CBC WITHOUT DIFF (Hemogram) 2017-09-09 WBC 7.9 4.0-12.0 RBC 4.0 4.5-6.0 HGB 10.7 13.5-18.0 HCT 36.7 42.0-52.0 MCV 93 78-100 MCH 27.0 27.0-32.0 MCHC 29.2 32.0-36.0 RDW 17.3 11.0-14.0 PLT 248 140-440 CRP-INFLAM 2017-09-09 CRP 1.1 0.0-0.9 PREALBUMIN 2017-09-09 PREALBUMIN 23 9-32 SED RATE 2017-09-09 ESR 30 0-20 X Foot R 3V 2017-09-09 See Below For Report REASON FOR VISIT acquired diabetic deformity 3 mth f/u, referral done 30 min per AR, acquired diabetic deformity 3 mth f/u, referral done, last seen 03/06/20 for DM foot and nail care -HL, pt states that he is here for routine DM foot and nail care today , pt states that he has no concerns today, 3 month f/u, pt statesthat he is here for DM foot care , pt states that he used all of the cicloporox and thinks that it helped , needs vascular f/u chk 12/28, 3 mo f/u r foot dm deformity, last seen by [facility] on 09/04/19 for DM footcare and tinea pedis-KG, pt states he is here today for Dm eval and nailcare-KG, 6 month f/u , ptwas last seen on 06/28/19 by [facility] for bilateral foot discoloration and nail care. mrr, pt here for right foot f/u and toenail maintenance of left foot. mrr, update A1C, 07/03/19 6.9, chart update, bilateral foot discoloration, referral done, pt states that his right foot has a purple discoloring to them, and that they have been this way for awhile now. , pt states that she is worried about the discoloration, and that she just noticed it last week. , pt states he coiuld use a his nails trimmed today , 3 month f/u Referral Done, 3 month f/u Referral Done, last seen by [facility]R 12/07/18 for tinea pedis left foot and DM foot care, Start Ciclopirox Olamine Cream, 0.77 %, 1 application to left foot, Externally, Twice a day,, Wash and dry the left foot twice daily with concentration of skin between the toes and then apply ciclopirox to the affected area, scant amount between toes. 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., Most recent A1C 3/5/197.4, pt states he is here for DM footcare-KG, A1C requested appt 12/07 ALR, 2 month fu, referral done, pt states he is here for a 2 month f/u , pt states he stoped the gabapentin , pt states he is still having some numbenss in his feet , A1C requested , REMIGIO ok''d for processing, 2 month f/u - pt called to r/s, 2 month f/u Referral Done, last seen by [facility] 05/11/18 for f/u bilateral leg edema , continue PT , Pt states he is still attending PT twice a week , Pt states he has concerns about the numbness in his R foot- Seems worse than his L foot , Pt states he notices at night he needs to get up togive the foot releif, Medications reviewed w/pt,med. 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 Espino, Wound CTR-follow up, Wound CTR-follow up, Claims Investigator Documentation, LAB, Wound CTR-follow up, Wound CTR-follow up, Wound CTR-follow up, Wound CTR-follow up, LAB, LAB, Wound CTR- follow up, Wound CTR-follow up, Wound CTR-follow up, Claims Investigator Documentation, [facility], Wound CTR-follow up, Wound CTR-follow up, Pull PICC Line, Wound CTR-follow up, Wound CTR-follow up, LAB, Still taking doxycycline 100mg? , Wound CTR-follow up, Wound CTR-follow up, Wound CTR-follow up, Claims Investigator Documentation, Wound CTR-follow up, Wound CTR-follow up, Call back, Claims Investigator Documentation, Claims Investigator Documentation, Claims Investigator Documentation, Wound CTR-follow up, WCC, Wound CTR-follow up, Wound CTR-follow up, labs, D/C planning, bailey smetatarsal amputation of right foot, LAB, LAB, Wound CTR-NEW Insurance Providers [facility] Health Member Patient Patient Patient Patient Patient Subscriber Subscriber Subscriber Group Insurance Plan Plan Plan Plan ID Relationship Address Phone Name Date of ID Name Date of No Type Insurance Insurance Insurance Coverage to Subscriber Address Phone Name Dates S-BLUE [phone] S-BLUE [place]REG[place] [id number] [place] [address] [place] 3000 [employer]FF[employer] MEDICARE self GREGORY [id number] [facility] [id number] OTHER [address] [phone] OTHER GREGORY [id number] GRANT 1^MAIN CONSTITUTION PARTY [place] PAYOR OR PAYOR [id number] SELF PAY [address] STRE[address] SELF PAY self [place]REG[place] [id number] AFTER BLUE WEBRE AFTER [facility] [id number] [place]
--- OUTSIDE RECORDS SUMMARY | 2022-02-13 11:08 | XMS_ITS | Encounter Summary ---
:1945 Author Organization [facility] Address [address] [place] [address] Care Team Providers Name Role Phone Lovely Vicente MD Primary Care Provider Encounter Details Date Type Department Care Team Description 01/01/2020 Lab Requisition [facility] Outr Resulting Lab, Pathology & Laboratory Provider [facility] [address] [place] [address] Social History Tobacco Use Types Packs/Day Years [...] nature PSA 2.1 0.0 - 6.5 ng/mL [facility] LABORA TORY SERVICES Specimen Blood - Venous blood (substance) Narrative [facility] SERVICES - 01/02/2020 10:40 EDT NOTE: Serum PSA concentration should not be in terpreted as absolute evidence for the presence or absence of malignant disease. Assayed on Siemens ADVIA Centaur XPT usi ng chemiluminescent technology.??Values obtained by using different assay methods cannot be used interchangeably. Performing Organization Address City/State/ZIP Code Phon e Number [facility] [address] [place] [address] SERVICES documented in this encounter Visit Diagnoses Not on filedocumented in this encounter Care Teams Basket Patcher Relationship Specialty Start Date End Date Lovely Vicente MD PCP - General 07/13/14 documented as of this encounter
--- OUTSIDE RECORDS SUMMARY | 2022-02-13 11:08 | XMS_ITS | Clinical Summary ---
:1945 Author Organization [facility] Address [address] [place] [id number] Care Team Providers Name Role Phone Lovely [...] from Last 3 Months Results COVID-19 TEST [facility] LAB PCR (01/27/2022 14:30 EDT) Specimen Swab Performing Organization Address City/State/ZIP Code Phon e Number [facility] LABOR[facility] [address] [place] [address] SERVICES COVID-19 TESTING (01/27/2022 14:30 EDT) COVID-19 rt-PCR Negative Negative [facility] Result Comment: CENTER LABORATORY This [...] performed using the meliton SARS-CoV-2 assay ([employer] on the Meliton 6800 System Performing Lab Meliton 6800 [facility] Lab [facility] LABOR[facility]ORY SERVICES Specimen Swab Performing Organization Address City/State/ZIP Code Phon e Number [facility] [address] [place] [address] SERVICES from Last 3 Months Care Teams Electro Optical Engineer Relationship Specialty Start Date End Date Lovely Vicente MD PCP - General 07/13/14
--- OUTSIDE RECORDS SUMMARY | 2022-02-13 11:08 | XMS_ITS | Encounter Summary ---
:1945 Author Organization [facility] Address [address] [place] [address] Care Team Providers Name Role Phone Unavailable Primary Care Provider Unavailable Encounter Details Date Type Department Care Team Description 03/05/2014 Hospital Encounter [facility]- [facility] Unknown, Provider, [facility] 0 [facility] [phone] [place] [address] (Work) [phone] Social History Tobacco Use Types Packs/Day Years Used Date Never Assessed Sex Assigned at Date Recorded Not on file documented as of this encounter Discharge Disposition Disposition Code Departure Means Destination Home or Self [facility] documented in this encounter Plan of Treatment Not on filedocumented as of this encounter Visit Diagnoses Not on filedocumented in this encounter
--- OUTSIDE RECORDS SUMMARY | 2022-02-13 11:08 | XMS_ITS | Encounter Summary ---
:[address] [facility] Address [address] [place] [address] Care Team Providers Name Role Phone Lovely Vicente MD Primary Care Provider Encounter Details Date Type Department Care Team Description 08/11/2019 Lab Requisition [facility] Unknown, Provider, Pathology & Laboratory [facility] [address] [place] [address] Social History Tobacco Use Types Packs/Day Years [...] (08/11/2019 14:35 EST) Giardia and Cryptosporidium Cryptosporidium [facility] Cryptosporidium Antigen Neg and Antigen Neg and CENTER Giardia Antigen Neg [facility] Antigen Neg LABORATORY SERVICES Specimen Feces - Specimen from rectum (specimen) Performing Organization Address City/State/ZIP Code Phon e Number [facility] [address] [place] [address] SERVICES documented in this encounter Visit Diagnoses Not on filedocumented in this encounter Care Teams Organic Lab Worker Relationship Specialty Start Date End Date Lovely Vicente MD PCP - General 07/13/14 documented as of this encounter
--- OUTSIDE RECORDS SUMMARY | 2022-02-13 11:08 | XMS_ITS | Encounter Summary ---
:1945 Author Organization [facility] Address [address] [place] [address] Care Team Providers Name Role Phone Lovely Vicente MD Primary Care Provider Encounter Details Date Type Department Care Team Description 04/04/2021 Lab Requisition [facility] Outr Resulting Lab, Pathology & Laboratory Provider [facility] [address] [place] [address] Social History Tobacco Use Types Packs/Day Years [...] (04/03/2021 12:15 EDT) Giardia and Cryptosporidium Cryptosporidium [facility] Cryptosporidium Antigen Neg and Antigen Neg and CENTER Giardia Antigen Neg Giardia Antigen Neg LABORATORY SERVICES Specimen Feces - Specimen from rectum (specimen) Performing Organization Address City/State/ZIP Code Phon e Number [facility] [address] [place] [address] SERVICES documented in this encounter Visit Diagnoses Not on filedocumented in this encounter Care Teams Community Center Coordinator Relationship Specialty Start Date End Date Lovely Vicente MD PCP - General 07/13/14 documented as of this encounter
--- OUTSIDE RECORDS SUMMARY | 2022-02-13 11:08 | XMS_ITS | Encounter Summary ---
:1945 Author Organization [facility] Address [address] [place] [address] Care Team Providers Name Role Phone Lovely Vicente MD Primary Care Provider Encounter Details Date Type Department Care Team Description 01/17/2021 Lab Requisition [facility] Outr Resulting Lab, Pathology & Laboratory Provider [facility] [address] [place] [address] Social History Tobacco Use Types Packs/Day Years [...] nature PSA 2.9 0.0 - 6.5 ng/mL [facility] LABORA TORY SERVICES Specimen Blood - Venous blood (substance) Narrative [facility] LABORATORY SERVICES - 01/17/2021 17:46 EDT NOTE: Serum PSA concentration should not be in terpreted as absolute evidence for the presence or absence of malignant disease. Assayed on Siemens [employer] Centaur XPT usi ng chemiluminescent technology.??Values obtained by using different assay methods cannot be used interchangeably. Performing Organization Address City/State/ZIP Code Phon e Number [facility] [address] [place] [address] SERVICES documented in this encounter Visit Diagnoses Not on filedocumented in this encounter Care Teams Fractionation Supervisor Relationship Specialty Start Date End Date Lovely Vicente MD PCP - General 07/13/14 documented as of this encounter
--- OUTSIDE RECORDS SUMMARY | 2022-02-13 11:08 | XMS_ITS | Encounter Summary ---
:[address] [facility] Address [address] [place] [address] Care Team Providers Name Role Phone Lovely Vicente MD Primary Care Provider Encounter Details Date Type Department Care Team Description 08/11/2019 Lab Requisition [facility] Unknown, Provider, Pathology & Laboratory [facility] [address] [facility] [place] [address] Social History Tobacco Use Types Packs/Day Years Used Date Never Assessed Sex Assigned at Date Recorded Not on file documented as of this encounter Plan of Treatment Not on filedocumented as of this encounter Procedures Procedure Name Priority Date/Time Associated Diagnosis Comme nts FECAL BACTERIAL Routine 08/11/2019 14:35 Results for this PATHOGENS BY PCR EST procedure a re in the results section. documented in this encounter Results FECAL BACTERIAL PATHOGENS BY PCR (08/11/2019 14:35 EST) Pathologist Sig nature Salmonella PCR Negative Negative [facility] LABORATORY SERVICES Shigella/Enteroinvasive Negative Negative [facility] R E. coli LABORATORY SERVICES HN LAB CAMPYLOBACTER PCR Negative Negative [facility] LABORATORY SERVICES Shiga Toxin PCR Negative Negative [facility] LABORATORY SERVICES Specimen Feces - Specimen from rectum (specimen) Performing Organization Address City/State/ZIP Code Phon e Number [facility] [address] [place] [address] SERVICES documented in this encounter Visit Diagnoses Not on filedocumented in this encounter Care Teams German Teacher Relationship Specialty Start Date End Date Lovely Vicente MD PCP - General 07/13/14 documented as of this encounter
--- OUTSIDE RECORDS SUMMARY | 2022-02-13 11:08 | XMS_ITS | Encounter Summary ---
:1945 Author Organization [facility] Address [address] [place] [address] Care Team Providers Name Role Phone Lovely Vicente MD Primary Care Provider Encounter Details Date Type Department Care Team Description 01/28/2022 Lab Requisition [facility] Outr Resulting Lab, Pathology & Laboratory Provider [facility] [address] [place] [address] Social History Tobacco Use Types Packs/Day Years Used Date Never Assessed Sex Assigned at Date Recorded Not on file documented as of this encounter Plan of Treatment Not on filedocumented as of this encounter Procedures Procedure Name Priority Date/Time Associated Diagnosis Comme nts COVID-19 TEST [facility] Today 01/27/2022 14:30 LAB PCR EDT COVID-19 TESTING Routine 01/27/2022 14:30 Results for this EDT procedure are i n the results section. documented in this encounter Results COVID-19 TEST [facility] LAB PCR (01/27/2022 14:30 EDT) Specimen Swab Performing Organization Address City/State/ZIP Code Phon e Number [facility] [address] [place] [address] SERVICES COVID-19 TESTING (01/27/2022 14:30 EDT) COVID-19 rt-PCR Negative Negative [facility] Result Comment: CENTER LABORATORY This [...] was performed using the meliton SARS-CoV-2 assay ([employer] on the Meliton 6800 System Performing Lab Mel[place] 6800 [facility] Lab [facility] LABORATORY SERVICES Specimen Swab Performing Organization Address City/State/ZIP Code Phon e Number [facility] [address] [place] [address] SERVICES documented in this encounter Visit Diagnoses Not on filedocumented in this encounter Care Teams Annual Campaign Manager Relationship Specialty Start Date End Date Lovely Vicente MD PCP - General 07/13/14 documented as of this encounter
--- OUTSIDE RECORDS SUMMARY | 2022-02-13 11:08 | XMS_ITS | Encounter Summary ---
:1945 Author Organization [facility] Address [address] [place] [address] Care Team Providers Name Role Phone Unknown, Provider Primary Care Provider Encounter Details Date Type Department Care Team Description 03/05/2014 Results Only [facility] Eris Taylor MD Laboratory Services - [address] [place] [address] [place] [address] [phone] Social History Tobacco Use Types Packs/Day Years Used Date Never Assessed Sex Assigned at Date Recorded Not on file documented as of this encounter Plan of Treatment Not on filedocumented as of this encounter Procedures Procedure Name Priority Date/Time Associated Diagnosis Comme [facility] SURGICAL PATHOLOGY Routine 03/05/2014 10:34 Resul [...] ? DON HOANG ? Accession #: ? [id number] ? : ? 1945 (Age: 68) ??M [...] Organization Address City/State/ZIP Code Phon e Number [facility] [address] [place] [address] SERVICES [facility] [address] [place] [address] documented in this encounter Visit Diagnoses Not on filedocumented in this encounter Care Teams Consultant Rn Relationship Specialty Start Date End Date Unknown, Provider, PCP - General 03/07/14 07/12/14 documented as of this encounter
--- OUTSIDE RECORDS SUMMARY | 2022-02-13 11:08 | XMS_ITS | Encounter Summary ---
:1945 Author Organization [facility] Address [address] [place] [address] Care Team Providers Name Role Phone Unknown, Provider Primary Care Provider Encounter Details Date Type Department Care Team Description 07/11/2014 Results Only [facility] Shruthi Horowitz MD Laboratory Services - [address] [place] [address] [place] [address] [address] [facility] [place] [address] [phone] Social History Tobacco Use Types Packs/Day Years Used Date Never Assessed Sex Assigned at Date Recorded Not on file documented as of this encounter Plan of Treatment Not on filedocumented as of this encounter Procedures Procedure Name Priority Date/Time Associated Diagnosis Comme [facility] SURGICAL PATHOLOGY Routine 07/11/2014 8:55 EST Re sults for this procedure are i n the results section. documented in this encounter Results SURGICAL PATHOLOGY (07/11/2014 8:55 EST) Pathology Report: SURGICAL PATHOLOGY REPORT [facility] Reports generated via electronic interface contain sorin ginal data; LABORATORY however they are lacking the format of the original re port. SERVICES Caution should be taken when reading/interpreting unfo rmatted reports. Name: ? DON HOANG ? Accession #: ? [id number] ? : ? 1945 (Age: 69) ??M [...] 6.5 x 3.0 cm in aggreg ate). Band Maker sections are submitted in 1- 10 (approximately 40% of the specimen is submitted). Viry Nunez 07/12/2014 11:21 AM End of Report Specimen Performing Organization Address City/State/ZIP Code Phon e Number [facility] [address] [place] [address] SERVICES documented in this encounter Visit Diagnoses Not on filedocumented in this encounter Care Teams Cigar Packer And Picker Relationship Specialty Start Date End Date Unknown, Provider, PCP - General 03/07/14 07/12/14 documented as of this encounter
--- OUTSIDE RECORDS SUMMARY | 2022-02-13 11:09 | XMS_ITS | Encounter Summary ---
:1945 Author Organization [facility] [place] [address] Care Team Providers Name Role Phone Lovely Vicente MD Primary Care Provider Encounter Details Date Type Department Care Team Description 12/15/2021 Telephone Cardiology at [facility] Barbara [place], [place] [address] Social History Tobacco Use Types Packs/Day [...] these issues and agrees with the plan. Barbara Mera (Jodie), RN, BSN Card[facility] documented in this encounter Plan of Treatment Upcoming Encounters Date Type Specialty Care Team Description 02/19/2022 Laboratory Appointment Lab 02/19/2022 Office Visit Cardiology Liz Poole PA [facility] Cardiology Dept [place], [place] [address] (Wo rk) 03/26/2022 Office Visit Cardiology Vitaliy Nobles MD [facility] CARDIOLOGY [place], [place] [address] (Wo rk) documented as of this encounter Visit Diagnoses Not on filedocumented in this encounter Care Teams Color Repairer Relationship Specialty Start Date End Date Lovely Vicente MD PCP - General 04/16/15 [facility] [address] [place] [address] documented as of this encounter
--- OUTSIDE RECORDS SUMMARY | 2022-02-13 11:09 | XMS_ITS | Encounter Summary ---
:1945 Author Organization [facility] Address [facility] [place] [address] Care Team Providers Name Role Phone Lovely Vicente MD Primary Care Provider Reason for Visit Auth/Cert Specialty Diagnoses / Procedures Referred By Contact Refer red To Contact Diagnoses ASCVD (arteriosclerotic cardiovascular disease) [I25.10] Vitaliy Nobles MD [facility] Procedures PRO PERC TRLUML CORONARY STENT W/ANGIO ONE ART/BRANCH CARDIAC CATHETERIZATION STENT PLACEMENT-SINGLE MAJOR CORONARY ARTERY OR BRANCH [facility] [place] [address] Referral ID Status Reason Start Date Expiration Date Visits Requ ested Visits Authorized [id number] 1 1 Encounter Details Date Type Department Care Team Description 01/30/2022 Surgery Religion Teacher Asa Coulter MD CARDIAC CATHETERIZATION [facility] [place] [address] [place] [address] [phone] (Wo rk) Social History Tobacco Use Types [...] and Clopidogrel. Please follow up with your database software technician in the next 4-6 weeks. We have made a referral to cardiac rehab. Please see the attached instructions regarding care to your right wrist access site. AttachmentsThe following attachments cannot be sent through Care Everywhere. Coronary Angiogram: Post-op (Latvian)documented in this encounter Medications at Time of Discharge Medication Sig Dispensed Refills Start Date End Date aspirin 81 mg Capsule 1 capsule by Per 14 capsule 0 01/31/20 22 02/13/2022 PO/OG/NG route daily for 14 days. clobetasoL (TEMOVATE) APPLY TOPICALLY DAILY 0 02/2022 0.05 % Solution NEEDED FOR RASH torsemide (Demadex) 20 Take 1 tablet by mouth 30 tablet 11 0 12/25/2021 mg TabletIndications: daily. Chronic systolic heart failure clopidogreL (Plavix) Take 1 tablet by mouth 90 tablet 3 75 mg Tablet daily. empagliflozin Take 1 tablet by mouth 30 tablet 3 12/12/2021 (Jardiance) 10 mg daily. Tablet nitroGLYcerin Place 1 tablet under 90 tablet 12 12/12/2021 (Nitrostat) 0.4 mg the tongue every 5 Tablet, Sublingual minutes as needed for Chest pain. pantoprazole EC Take 1 tablet by mouth 90 tablet 3 12/13/19 22 (Protonix) 40 mg daily. Tablet, Delayed Release (E.C.) spironolactone Take 1 tablet by mouth 90 tablet 3 2 (Aldactone) 25 mg daily. Tablet apixaban (Eliquis) 5 Take 1 tablet by mouth 60 tablet 3 mg Tablet 2 times daily. ferrous sulfate 325 mg Take 325 mg by mouth 0 (65 mg iron) Tablet daily (with breakfast). Tablet 4 days a week. losartan (COZAAR) 100 Take 50 mg by mouth 0 04/14 mg Tablet daily. atorvastatin (Lipitor) Take 10 mg by mouth 0 40 mg Tablet daily. 5 days weekly. insulin lispro Inject 25 Units 0 (HumaLOG) Insulin Pen subcutaneously 3 times daily (before meals). LANTUS SOLOSTAR U-100 35 Units nightly. 0 [...] 500 mg by mouth 0 Capsule daily. ACCU-CHEK TERA PLUS 2-3 times daily 100 each 1 07/14/2017 TEST STRP Strip metFORMIN (GLUCOPHAGE) Take 1 tablet by mouth 60 tablet 12 1 09/15/2016 850 mg Tablet 2 times daily (with meals). BD INSULIN PEN NEEDLE 1 each by Other route 0 UF MINI 31 gauge x 4 times daily. 10/08 Needle documented as of this encounter Progress Notes Carlos Alberto Murray RN - 01/30/2022 4:54 PM EDT [facility] Short Stay Unit Discharge Note All [...] recent PCI presenting for staged PCI to [facility]. The pt states he has been [...] recent PCI presenting for staged PCI to [facility]. The indications, expected benefits, and potential [...] SSU team Don has history of prior [place] and CABG. I had referred him to cardiac rehab at [facility] last month per HF team. He was waiting until this intervention before starting the program. Reviewed managing angina /use of sl nitroglycerin. Given parameters for home exercise. 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 We discussed short walks several times per day. Will send [facility] his discharge summary from this admission. The patient should be contacted by the Program within 1- 2 weeks from discharge. Brief Op Note - Vitaliy Nobles MD - 01/30/2022 10:19 AM EDT Images from the original note were not included[place] [address] [address] CORONARY ANGIOGRAM AND PERCUTANEOUS CORONARY INTERVENTION REPORT Patient: Don Mccollum Kushal : 1945 MR number: [id number] Date of Service: 01/30/2022 Diesel Truck Technician: Vitaliy Nobles MD Fellow: KEYON Elizabeth INDICATION: [...] a long 2.0 x 26 mm HARDEEP Sallis TUCKER stent and positioned it at the [...] using a 2.0 x 26 mm HARDEEP Sallis TUCKER stent. This completes the revascularization ofall [...] 02/19/2022 Office Visit Cardiology Liz Poole PA [facility] Cardiology Dept [place], [place] [address] (Wo lissa) 03/26/2022 Office Visit Cardiology Vitaliy Nobles MD [facility] CARDIOLOGY [place], [place] [address] (Mikayla alcaraz) Scheduled Orders Name [...] procedure are i n the results section. STENT PLACEMENT-SINGLE 01/30/2022 8:19 ASCVD MAJOR CORONARY ARTERY AM EDT (arteriosclerotic OR BRANCH cardiovascular disease) POCT GLUCOSE Routine 01/30/2022 8:10 Results for this AM EDT procedure are i n the results section. documented in this encounter Results (ABNORMAL) Differential, Automated (01/30/2022 2:12 PM EDT) athologist Signature Neutrophils % 71.8 % [facility] Neutr Abs (ANC) 3.96 1.70 - [facility] 6.10 [facility] x10(3)/[facility] LABORATORY Lymphocytes % 16.3 % [facility] Lymphocytes Abs 0.9 0.9 - 3.2 [facility] x10(3)/[facility] LABORATORY Monocytes % 10.0 % [facility] Monocyte Abs 0.6 0.3 - 0.9 [facility] x10(3)/[facility] LABORATORY Eosinophils % 0.5 % [facility] Eosinophils Abs 0.0 0.0 - 0.4 [facility] x10(3)/[facility] LABORATORY Basophils % 0.5 % [facility] Basophils Abs 0.0 0.0 - 0.1 [facility] x10(3)/[facility] LABORATORY Immature Gran % 0.90 % [facility] Comment: Immature granulocytes(IG's)percentage an d absolute count will include metamyelocytes, myelocytes, and promyelo cytes. Blood smears from CBCs yielding IG's will be scanned manually for concor dance. If this scan disagrees with the automated IG or if promyelocytes are not ed, a manual differential will be performed. Melisa Gran Abs 0.05 (H) 0.00 - 0.04 x10(3)/[facility] LABORATORY Specimen Anatomical Collection Method Collection Time Receive d Time (Source) Location / / Volume Laterality Blood 01/30/2022 2:12 PM 2:37 EDT PM EDT Resulting Agency Comment Spec In Lab Eddi Elizabeth Jr., MD HEMATOLOGY ORDERABLES Performing Organization Address City/State/ZIP [place] [address] (ABNORMAL) Hemogram (01/30/2022 2:12 PM EDT) Analysis Performed At Patho logist Time Signature WBC 5.5 4.0 - 9.5 [facility] x10(3)/[facility] LABORATORY RBC 4.30 (L) 4.58 - [facility] 5.54 [facility] x10(6)/[facility] LABORATORY Hemoglobin 12.7 (L) 13.7 - [facility] 16.5 g/dL [facility] Hematocrit 39.4 (L) 40.5 - [facility] 48.5 % [facility] MCV 91.6 82.9 - [facility]1 fL [facility] MCH 29.5 27.5 - [facility] 32.1 pg [facility] MCHC 32.2 32.0 - [facility] 35.7 g/dL [facility] Platelets 172 145 - 357 [facility] x10(3)/[facility] LABORATORY RDWSD 54.5 (H) 36.0 - [facility] 45.0 [facility] LABORATORY RDWCV 16.4 (H) 11.4 - [facility] 13.8 % [facility] LABORATORY MPV 9.2 7.6 - 12.9 [facility] LABORATORY nRBC % Auto 0.0 % [facility] nRBC Abs Auto 0.000 0.000 - [facility] 0.000 [facility] x10(3)/[facility] LABORATORY Specimen Anatomical Collection Method Collection Time Receive d Time (Source) Location / / Volume Laterality Blood 01/30/2022 2:12 PM 2:37 EDT PM EDT Resulting Agency Comment Spec In Lab Eddi Elizabeth Jr., MD HEMATOLOGY ORDERABLES Performing Organization Address City/State/ZIP [place] [address] (ABNORMAL) Basic Metabolic Panel (non-fasting) (01/30/2022 2:12 PM EDT) athologist Signature Glucose Lvl 163 65 - 199 [facility] mg/dL [facility] Comment: Diabetes: >=200 mg/dL plus symp toms BUN 30 (H) 10 - 20 mg/dL [facility] Creatinine 1.47 0.80 - 1.50 mg/dL [facility] Sodium 140 135 - 145 [...] estions. Chloride 101 98 - 107 mmol/L [facility] CO2 28 22 - 31 mmol/L [facility] Anion Gap 11 5 - 15 mmol/L [facility] Calcium 9.2 8.5 - 10.5 mg/dL [facility] Estimated GFR 49 (L) >=60 mL/min/1.73 m?? [facility] Comment: This patient's estimated GFR [...] Nobles MD CHEMISTRY ORDERABLES Performing Organization Address City/[facility]/ZIP Code Phon e Number [address] POCT Glucose (01/30/2022 1:41 PM EDT) athologist Signature POC Glucose 148 65 - 199 [facility] mg/dL [facility] Comment: Supplemental ranges: <140 mg/dL before meals <180 mg/dL all other times of the day Specimen Anatomical Collection Method Collection Time Receive d Time (Source) Location / / Volume Laterality Blood 01/30/2022 1:41 PM 2 1:41 EDT PM EDT Vitaliy Nobles MD POINT OF CARE TEST ORDERABLE S Performing Organization Address City/State/[place] [address] POCT Glucose (01/30/2022 10:48 AM EDT) athologist Signature POC Glucose 193 65 - 199 [facility] mg/dL [facility] Comment: Supplemental ranges: <140 mg/dL before meals <180 mg/dL all other times of the day Specimen Anatomical Collection Method Collection Time Receive d Time (Source) Location / / Volume Laterality Blood 01/30/2022 10:48 01/30/2022 AM EDT 10:48 AM EDT Vitaliy Sandra Nobles MD POINT OF CARE TEST ORDERABLE S Performing Organization Address City/State/ZIP [place] [address] EKG 12 Lead (01/30/2022 10:33 AM EDT) Component Value Ref Range Test Analysis Performed Pathologis t Method Time At Signature Ventricular rate 64 BPM MUSE SYSTEM Atrial Rate 64 BPM MUSE SYSTEM P-R Interval 162 ms MUSE SYSTEM QRS Duration 94 ms MUSE SYSTEM Q-T Interval 422 ms MUSE SYSTEM QTC Calculated 435 ms MUSE SYSTEM (Bezet) Calculated P [place] 41 degrees MUSE SYSTEM Calculated R [place] -27 degrees MUSE SYSTEM Calculated T [place] 104 degrees MUSE SYSTEM INTERPRETATION Normal sinus rhythm MUSE SYSTEM Anterolateral infarct (cited on or before 09-DEC-2021) Abnormal ECG When compared with ECG of 10-DEC-2021 11:17, No significant change was found Confirmed by Gary Perez ([id number]) on 01/30/2022 5:57:5 2 PM Specimen Anatomical Collection Method Collection Time Receive d Time (Source) Location / / Volume Laterality 01/30/2022 10:33 01/30/2022 5:57 AM EDT PM EDT Vitaliy Sandra Nobles MD ECG ORDERABLES Performing Organization Address City/[facility]/ZIP Code Phon e Number MUSE SYSTEM CARDIAC CATHETERIZATION (01/30/2022 10:16 AM EDT) Specimen (Source) Anatomical Location Collection Method / Collectio n Time Received Time / Laterality Volume Narrative CARDIOMAC SYSTEM - 01/30/2022 2:09 PM ED T ?[facility] ? Cardiac Cathete rization/Intervention Report ? Patient Name: Don Fatima Veda. ? Procedure Date: 01/30/2022 ? A #: [id number] ? Primary Physician: Nobles, Vitaliy P ? Case #: [id number] ? File Name: [id number] ? Catheterization Order Number: [id number] ? [facility] ? Final Report [place], [place] ? Patient Name: ? Don E. Stewa rt ? ID#: ?[id number] ? : ?1945 ? Procedure Date: ? January 30, 2022 ? Case #: ? [id number] ? Room: ? 1 ? Case Physician: [...] procedure was Urgent. The indication for ?the photographic laboratory supervisor visit is stable kn own CAD. Chest [...] guiding catheter an d a 3.[address] [facility] [address] ??20 Mhz ?using Manual pullback. ??Imagin [...] ?? A premounted 2.00 x 26 mm Hardeep Sallis (TUCKER) ? was deployed wi th a [...] Wedelivered along 2.0 x 26 mm HARDEEP Sallis ? TUCKER stent and p ositioned it [...] dose administered prior to arrival in the photographic laboratory supervisor. ?Recommended anti-platelet/anti- thrombotic regimen: ?Continue aspirin 81 [...] require ?modification of this regimen. C onsult [facility] Interventional Cardiology for ?questions. ?The 1 year [...] using a 2.0 x 26 mm HARDEEP Sallis TUCKER stent. ?This completes the revasculariz ation [...] .D. ? Report Finalized: 01/30/2022 ??14:02 ? Vitaliy Nobles MD CARDIAC CATH ORDERABLES Performing Organization Address City/State/ZIP Code Phon e Number CARDIOMAC SYSTEM (ABNORMAL) POCT Glucose (01/30/2022 9:04 AM EDT) P athologist Signature POC Glucose 212 (H) 65 - 199 [facility] mg/dL [facility] Comment: Supplemental ranges: <140 mg/dL before meals <180 mg/dL all other times of the day Specimen Anatomical Collection Method Collection Time Receive d Time (Source) Location / / Volume Laterality Blood 01/30/2022 9:04 AM 2 9:04 EDT AM EDT Vitaliy Nobles MD POINT OF CARE TEST ORDERABLE S Performing Organization Address [facility]/[place] [address] (ABNORMAL) POCT Glucose (01/30/2022 8:10 AM EDT) P athologist Signature POC Glucose 224 (H) 65 - 199 [facility] mg/dL [facility] Comment: Supplemental ranges: <140 mg/dL before meals <180 mg/dL all other times of the day Specimen Anatomical Collection Method Collection Time Receive d Time (Source) Location / / Volume Laterality Blood 01/30/2022 8:10 AM 2 8:10 EDT AM EDT Vitaliy Nobles MD POINT OF CARE TEST ORDERABLE S Performing Organization Address [facility]/[place] [address] documented in this encounter Visit Diagnoses Diagnosis ASCVD (arteriosclerotic cardiovascular d isease) Unspecified cardiovascular disease 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 ASHD (arteriosclerotic heart disease) Coronary atherosclerosis of unspecified type of vessel, [place] or graft ASCVD (arteriosclerotic cardiovascular d isease) Unspecified cardiovascular disease documented in this encounter Admitting Diagnoses Diagnosis CAD (coronary artery disease) Coronary atherosclerosis of unspecified type of vessel, [place] or graft documented in this encounter Administered [...] 1039, Until Wed at 1045, MADDISON FARMER: gita override clopidogreL (Plavix) tablet 600 mg Given [...] Given 02/2022 10:11 AM EDT 100 mcg (DIRECTOR OF AGRICULTURE) ONCE PRN, Starting on Wed01/30/22 at 0927, [...] (CANCELED) 083 9 (Given - Provider: Katerin Kay, VAMSI) ONCE PRN, Starting on Wed01/30/22 at 0839 [...] Procedure), Routine niCARdipine (Cardene) (100 mcg/mL) dilution (DIRECTOR OF AGRICULTURE) (CANCELED ) 0927 (Given - Provider: Vitaliy [...] (Intra-Procedure) documented in this encounter Care Teams Bulb Assembler Relationship Specialty Start Date End Date Lovely Vicente MD PCP - General 04/16/[address] [place] [address] documented as of this encounter
--- OUTSIDE RECORDS SUMMARY | 2022-02-13 11:09 | XMS_ITS | Encounter Summary ---
:1945 Author Organization [facility] [place] [address] Care Team Providers Name Role Phone Lovely Vicente MD Primary Care Provider Encounter Details Date Type Department Care Team Description 12/12/2021 Telephone Cardiology at [facility] Barbara [place]era, [place] [address] Social History Tobacco Use Types Packs/Day [...] - 12/12/2021 11:36 AM EDT RTC to [facility] regarding pharmacists questions as to whether the [...] PA [facility] Cardiology Dept [place], [place] [address] (Wo rk) 03/26/2022 Office Visit Cardiology Vitaliy Nobles MD [facility] CARDIOLOGY [place], [place] [address] (Wo rk) documented as of this encounter Visit Diagnoses Not on filedocumented in this encounter Care Teams Pot Puller Relationship Specialty Start Date End Date Lovely Vicente MD PCP - General 04/16/[address] [place] [address] documented as of this encounter
--- OUTSIDE RECORDS SUMMARY | 2022-02-13 11:09 | XMS_ITS | Encounter Summary ---
:1945 Author Organization [facility] [place] [address] Care Team Providers Name Role Phone Lovely Vicente MD Primary Care Provider Encounter Details Date Type Department Care Team Description 12/25/2021 Laboratory Appointment Lab 3L [facility] systolic [facility] [place] [id number] Social History Tobacco Use Types Packs/Day Years [...] Liz Poole PA [facility] er Cardiology Dept [place], [place] [address] (Wo rk) 03/26/2022 Office Visit Cardiology Vitaliy Nobles MD [facility] CARDIOLOGY [place], [place] [address] (Wo rk) documented as of [...] (ABNORMAL) Differential, Automated (12/25/2021 7:46 AM EDT) [facility] Method Time Signature Neutrophils % 82.6 % [facility] LABORATORY Neutr Abs (ANC) 9.37 (H) 1.70 - [facility] 6.10 [facility] x10(3)/[facility] L LABORATORY Lymphocytes % 7.1 % [facility] Lymphocytes Abs 0.8 (L) 0.9 - 3.2 [facility] x10(3)/[facility] LABORATORY Monocytes % 8.8 % [facility] Monocyte Abs 1.0 (H) 0.3 - 0.9 [facility] x10(3)/[facility] LABORATORY Eosinophils % 0.4 % [facility] Eosinophils Abs 0.0 0.0 - 0.4 [facility] x10(3)/[facility] LABORATORY Basophils % 0.4 % [facility] Basophils Abs 0.0 0.0 - 0.1 [facility] x10(3)/[facility] LABORATORY Immature Gran % 0.70 % [facility] Comment: Immature granulocytes(IG's)percentage an d absolute count will include metamyelocytes, myelocytes, and promyelo cytes. Blood smears from CBCs yielding IG's will be scanned manually for concor dance. If this scan disagrees with the automated IG or if promyelocytes are not ed, a manual differential will be performed. Melisa Gran Abs 0.08 (H) 0.00 - 0.04 x10(3)/[facility] LABORATORY Specimen Anatomical Collection Method Collection Time Receive d Time (Source) Location / / Volume Laterality Blood 12/25/2021 7:46 AM 2 8:01 EDT AM EDT Resulting Agency Comment Spec In Lab Liz BROWN HEMATOLOGY ORDERABLES Performing Organization Address City/State/Z[place] [address] (ABNORMAL) Hemogram (12/25/2021 7:46 AM EDT) Analysis Performed At Patho logist Time Signature WBC 11.4 (H) 4.0 - 9.5 [facility] x10(3)/[facility] LABORATORY RBC 4.23 (L) 4.58 - [facility] 5.54 [facility] x10(6)/[facility] LABORATORY Hemoglobin 12.3 (L) 13.7 - [facility] 16.5 g/dL [facility] LABORATORY Hematocrit 37.7 (L) 40.5 - [facility] 48.5 % [facility] LABORATORY MCV 89.1 82.9 - [facility] 93.1 [facility] LABORATORY MCH 29.1 27.5 - [facility] 32.1 pg [facility] LABORATORY MCHC 32.6 32.0 - [facility] 35.7 g/dL [facility] LABORATORY Platelets 215 145 - 357 [facility] x10(3)/[facility] LABORATORY RDWSD 49.8 (H) 36.0 - [facility] 45.0 [facility] LABORATORY RDWCV 15.2 (H) 11.4 - [facility] 13.8 % [facility] LABORATORY MPV 9.2 7.6 - 12.9 [facility] LABORATORY nRBC % Auto 0.0 % [facility] LABORATORY nRBC Abs Auto 0.000 0.000 - [facility] 0.000 [facility] x10(3)/[facility] LABORATORY Specimen Anatomical Collection Method Collection Time Receive d Time (Source) Location / / Volume Laterality Blood 12/25/2021 7:46 AM 2 8:01 EDT AM EDT Resulting Agency Comment Spec In Lab Liz BROWN HEMATOLOGY ORDERABLES Performing Organization Address City/State/ZIP [place] [address] (ABNORMAL) Basic Metabolic Panel (non-fasting) (12/25/2021 7:46 AM EDT) P athologist Signature Glucose Lvl 272 (H) 65 - 199 [facility] mg/dL [facility] LABORATORY Comment: Diabetes: >=200 mg/dL plus symp toms BUN 62 (H) 10 - 20 mg/dL [facility] LABORATORY Creatinine 1.81 (H) 0.80 - 1.50 mg/dL [facility] LABORATORY Sodium 134 (L) 135 - 145 mmol/L [facility] LABOR[facility] Potassium 4.9 3.5 - 5.0 mmol/L [facility] Comment: Please note: ??Patients with WBC >100,00 0 may have falsely elevated Potassium levels. ??For accurate Potassium quantif ication in these patients send serum separator tube (gold top) for subsequent determinations. ??Contact the Clinical Chemistry Laboratory if there are any qu estions. Chloride 95 (L) 98 - 107 mmol/L [facility]OR[facility]ORY CO2 28 22 - 31 mmol/L [facility] Anion Gap 11 5 - 15 mmol/L [facility] LABORATORY Calcium 9.4 8.5 - 10.5 mg/dL [facility] LABORATORY Estimated GFR 36 (L) >=60 mL/min/1.73 m?? [facility] Comment: This patient? s estimated [...] Organization Address City/State/Z[place] [address] (ABNORMAL) pro-Brain Natriuretic Peptide (12/25/2021 7:46 AM EDT) P athologist Signature ProBNP 1,380 (H) <=124 [facility] pg[facility]mL [facility] LABORATORY Specimen Anatomical Collection Method Collection Time Receive d Time (Source) Location / / Volume Laterality Blood 12/25/2021 7:46 AM 2 8:01 EDT AM EDT Resulting Agency Comment Spec In Lab Zulma Plunkett MD CHEMISTRY ORDERABLES Performing Organization Address City/State/ZIP [place] [address] documented in this encounter Visit Diagnoses Diagnosis Chronic systolic heart failure documented in this encounter Care Teams Padded Box Sewer Relationship Specialty Start Date End Date Lovely Vicente MD PCP - General 04/16/[address] [place] [address] documented as of this encounter
--- OUTSIDE RECORDS SUMMARY | 2022-02-13 11:09 | XMS_ITS | Encounter Summary ---
:1945 Author Organization [facility] [place] [address] Care Team Providers Name Role Phone Lovely Vicente MD Primary Care Provider Reason for Visit Reason Onset Date Comments Advice Only 01/28/2022 Encounter Details Date Type Department Care Team Description 01/28/2022 Telephone [place] [facility] Chitra Angela, general manager [place] [phone] Social History Tobacco Use Types Packs/Day [...] Fatima assists patient with medications. Number for clinical laboratory scientist scheduling given and she will call them to verify this information Meds reviewed. As per our form from clinical laboratory scientist Eliquis hold for 48 hours prior. Pt [...] Office Visit Cardiology Liz Poole PA [facility] [place], [place] [address] (Wo rk) 03/26/2022 Office Visit Cardiology Vitaliy Nobles MD [facility] ER CARDIOLOGY [place], [place] [address] (Wo rk) documented as of this encounter Visit Diagnoses Not on filedocumented in this encounter Care Teams Early Childhood Relationship Specialty Start Date End Date Lovely Vicente MD PCP - General 04/16/[address] [place] [address] documented as of this encounter
--- OUTSIDE RECORDS SUMMARY | 2022-02-13 11:09 | XMS_ITS | Encounter Summary ---
:1945 [place] [address] Care Team Providers Name Role Phone Lovely Vicente MD Primary Care Provider Encounter Details Date Type Department Care Team Description 12/25/2021 Office Visit [place]iology [place] [facility] [place] Poole, Chronic systolic heart [facility] [place] [address] Cardiology Dept [phone] [place], [place] [address] Social History Tobacco Use Types [...] documented in this encounter Patient Instructions Patient InstructionsLiz Poole PA - 12/25/2021 9:49 AM EDT [...] As per DC Summary - Ad[place] [facility] [place] 12[place]08[place], transferred from [facility], respiratory distress with hypoxia 86% on RA. [...] mg PO daily in place of Lasix. [place] is new for him and he will [...] Antiplatelet (DAPT) Recommendations above ? TTE from [facility] 12/08/21 ?? 07/28/2019 Echocardiogram: SUMMARY: 1. The [...] regurgitation present. 07/07/2019 - 07/21/2019 Zio Patch Rivet Flunky The patient had a minimum heart rate [...] hyperkalemia 4.9 today 6. Post-op atrial fibrillation [id number] (CHF, HTN, DM, vascular disease, thromboembolism) Eliquis 7. PAD 08/06/2017: Right 1st, 2nd, 3rd toe amputation 08/11/2017: Left??femoral arterial access, RLE??angiogram, Balloon angioplasty of R PT 10/25/2017: right popliteal-pedal bypass at [facility] 8. Hypothyrodism S/p thyroidectomy for goiter Levothyroxine ?? Plan: 1 month follow up with labs Liz Poole PA-C 12/25/2021 documented in this encounter Plan of Treatment Upcoming Encounters Date Type Specialty Care Team Description 02/19/2022 Laboratory Appointment Lab 02/19/2022 Office Visit Cardiology Liz Poole PA [facility] Cardiology Dept [place] [address] (Wo rk) 03/26/2022 Office Visit Cardiology Vitaliy Nobles MD [facility] ER DR CARDIOLOGY [place], [place] [address] ([facility]) Scheduled Orders Name Type Priority Associated Diagnoses Order S chedule Basic Metabolic Panel Lab STAT Chronic systolic he art Expected: 12/31/2021, (non-fasting) failure Expires: 12/26 documented as of this encounter Results (ABNORMAL) pro-Brain Natriuretic Peptide (12/25/2021 7:46 AM EDT) athologist Signature ProBNP 1,380 (H) <=124 [facility] pg/mL [facility] Specimen Anatomical Collection Method Collection Time Receive d Time (Source) Location / / Volume Laterality Blood 12/25/2021 7:46 AM 8:01 EDT AM EDT Resulting Agency Comment Spec In Lab Zulma Plunkett MD CHEMISTRY ORDERABLES Performing Organization Address City/State/[place] [address] (ABNORMAL) Basic Metabolic Panel (non-fasting) (12/25/2021 7:46 AM EDT) athologist Signature Glucose Lvl 272 (H) 65 - 199 [facility] mg/dL [facility] Comment: Diabetes: >=200 mg/dL plus symp toms BUN 62 (H) 10 - 20 mg/dL [facility] Creatinine 1.81 (H) 0.80 - 1.50 mg/dL [facility] Sodium 134 (L) 135 - 145 mmol/L [facility] Potassium 4.9 3.5 - 5.0 mmol/L [facility] Comment: Please note: ??Patients with WBC >100,00 0 may have falsely elevated Potassium levels. ??For accurate Potassium quantif ication in these patients send serum separator tube (gold top) for subsequent determinations. ??Contact the Clinical Chemistry Laboratory if there are any qu estions. Chloride 95 (L) 98 - 107 mmol/L [facility] CO2 28 22 - 31 mmol/L [facility] Anion Gap 11 5 - 15 mmol/L [facility] Calcium 9.4 8.5 - 10.5 mg/dL [facility] Estimated GFR 36 (L) >=60 mL/min/1.73 m?? [facility] Comment: This patient? s [...] Organization Address City/State/[place] [address] documented in this encounter Visit Diagnoses Diagnosis Chronic systolic heart failure documented in this encounter Care Teams Sheet Heater Helper Relationship Specialty Start Date End Date Lovely Vicente MD PCP - General 04/16/[address] [place] [address] documented as of this encounter
--- OUTSIDE RECORDS SUMMARY | 2022-02-13 11:09 | XMS_ITS | Encounter Summary ---
:1945 Author Organization [facility] [place] [address] Care Team Providers Name Role Phone Lovely Vicente MD Primary Care Provider Encounter Details Date Type Department Care Team Description 12/24/2021 Telephone Public Health at [facility] [place] [address] Social History Tobacco Use Types Packs/Day [...] Cardiology Liz Poole PA [facility] Cardiology Dept [place], [place] [address] (Wo rk) 03/26/2022 Office Visit Cardiology Vitaliy Nobles MD [facility] ER CARDIOLOGY [place], [place] [address] (Wo rk) documented as of this encounter Visit Diagnoses Not on filedocumented in this encounter Care Teams Marble Supervisor Relationship Specialty Start Date End Date Lovely Vicente MD PCP - General 04/16/[address] [place] [address] documented as of this encounter
--- OUTSIDE RECORDS SUMMARY | 2022-02-13 11:09 | XMS_ITS | Encounter Summary ---
:1945 [place] [address] Care Team Providers Name Role Phone Lovely Vicente MD Primary Care Provider Encounter Details Date Type Department Care Team Description 01/28/2022 Orders Only Snow Maker Zulma Finch ASCVD (art eriosclerotic [facility] cardiovascular disease) [facility] [place] [address] [place], [place] [phone] (Work) [phone] Social History Tobacco Use Types Packs/Day Years [...] Poole PA [facility] er Cardiology Dept [place], [place] [address] (Wo rk) 03/26/2022 Office Visit Cardiology Vitaliy Nobles MD [facility] ER DR [place] [place], [place] [address] (Wo rk) documented as of this encounter Results (ABNORMAL) Basic Metabolic Panel (non-fasting) (01/30/2022 7:19 AM EDT) athologist Signature Glucose Lvl 237 (H) 65 - 199 [facility] mg/dL [facility] Comment: Diabetes: >=200 mg/dL plus symp toms BUN 34 (H) 10 - 20 mg/dL [facility] Creatinine 1.45 0.80 - 1.50 mg/dL [facility] Sodium 141 135 - 145 mmol/L [facility] Potassium 4.7 3.5 - 5.0 mmol/L [facility] Comment: Please note: ??Patients with WBC >100,00 0 may have falsely elevated Potassium levels. ??For accurate Potassium quantif ication in these patients send serum separator tube (gold top) for subsequent determinations. ??Contact the Clinical Chemistry Laboratory if there are any qu estions. Chloride 100 98 - 107 mmol/L [facility] CO2 30 22 - 31 mmol/L [facility] Anion Gap 11 5 - 15 mmol/L [facility] Calcium 9.5 8.5 - 10.5 mg/dL [facility] Estimated GFR 50 (L) >=60 mL/min/1.73 m?? [facility] Comment: This patient's estimated [...] / Volume Laterality Blood 01/30/2022 7:19 AM 2 7:21 EDT AM EDT Resulting Agency Comment Spec In Lab Vitaliy Nobles MD CHEMISTRY ORDERABLES Performing Organization Address City/State/ZIP Code [place] [address] documented in this encounter Visit Diagnoses Diagnosis ASCVD (arteriosclerotic cardiovascular d isease) Unspecified cardiovascular disease documented in this encounter Care Teams Top Hat Body Maker Relationship Specialty Start Date End Date Lovely Vicente MD PCP - General 04/16/[address] [place] [address] documented as of this encounter
--- OUTSIDE RECORDS SUMMARY | 2022-02-13 11:09 | XMS_ITS | Encounter Summary ---
:1945 Author Organization [facility] [place] [address] Care Team Providers Name Role Phone Lovely Vicente MD Primary Care Provider Reason for Visit Reason Onset Date Comments Medication Refill 12/12/2021 Torsemide Encounter Details Date Type Department Care Team Description 12/12/2021 Refill [place] [facility] [place] Janneth Padilla, Medication Refill [facility] STEPHANIE (Torsem[place]) [place] [phone] CARDIOLOGY DEPT. [place], [place] [address] (Wo rk) Social History Tobacco [...] PA [facility] er Cardiology Dept [place], [place] [address] (Wo rk) 03/26/2022 Office Visit Cardiology Vitaliy Nobles MD [facility] CARDIOLOGY [place], [place] [address] (Wo rk) documented as of this encounter Visit Diagnoses Diagnosis Chronic systolic heart failure documented in this encounter Care Teams Commercial Green Building Designer Relationship Specialty Start Date End Date Lovely Vicente MD PCP - General 04/16/[address] [place] [address] documented as of this encounter
--- OUTSIDE RECORDS SUMMARY | 2022-02-13 11:09 | XMS_ITS | Encounter Summary ---
:1945 [place] [address] Care Team Providers Name Role Phone Lovely Vicente MD Primary Care Provider Encounter Details Date Type Department Care Team Description 12/24/2021 Orders Only Protection Manager Zulma Finch ASCVD (art eriosclerotic [facility] cardiovascular disease) [facility] [place] [address] [place], [place] [phone] (Work) [phone] Social History Tobacco Use Types Packs/Day Years [...] Cardiology Liz Poole PA [facility] er Cardiology Dept [place], [place] [address] (Wo rk) 03/26/2022 Office Visit Cardiology Vitaliy Nobles MD [facility] ER [address] [place], [place] [address] (Wo rk) documented as of this encounter Visit Diagnoses Diagnosis ASCVD (arteriosclerotic cardiovascular d isease) Unspecified cardiovascular disease documented in this encounter Care Teams Business Analysis Specialist Relationship Specialty Start Date End Date Lovely Vicente MD PCP - General 04/16/15 [address] [facility] [place] [address] documented as of this encounter
--- OUTSIDE RECORDS SUMMARY | 2022-02-13 11:09 | XMS_ITS | Clinical Summary ---
:1945 Author Organization [facility] [place] [address] Care Team Providers Name Role Phone Lovely [...] for 2 wee ks. EDP 30. DM. MARIA VICTORIA. ICM. Home Wednesday. 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; ASHD (arteriosc lerotic heart disease) 01/28/2022 Orders Only Cardiology JEMIMA Gannon PA (arteriosclerot ic cardiovascular disease) 01/28/2022 Telephone Cardiology Chitra Angela Advice Rome Gomes RN 12/30/2021 Notes Only Cardiology Rebeka Deluca RN 12/25/2021 Office Visit Cardiology Ivone Poole systoli c heart STEPHANIE Hill failure 12/25/2021 Laboratory Lab Chronic systoli c heart Appointment failure 12/24/2021 Telephone [facility] Dayami Buckner 12/24/2021 Orders Only Cardiology JEMIMA Gannon PA (arteriosclerot ic cardiovascular disease) 12/15/2021 Telephone Cardiology Barbara Mera RN 12/12/2021 Refill Cardiology Janneth Padilla Medication R STEPHANIE Fletcher (Torsemide) 12/12/2021 Telephone Cardiology Barbara Mera RN 12/10/2021 Surgery Cardiology Vitaliy Nobles, CARDIAC MD CATHETERIZATION 12/08/2021 - Hospital Encounter Iker Cuevas Non-ST e levation myocardial infarction (NSTEMI); 12/12/2021 [...] 02/19/2022 Office Visit Cardiology Liz Poole PA [facility] Medical [facility] er Cardiology Dept [place] [phone] (Wo rk) 03/26/2022 Office Visit Cardiology Vitaliy Nobles MD [facility] ER CARDIOLOGY [place], [place] [address] (Wo rk) Health Maintenance Due Date Last Done Comments Covid-19 Vaccine (#1) 1950 Pneumoccocal Vaccine: 65+ (1 - PCV) 1952 Hepatitis C Screening 1964 Tdap adult 1965 Tetanus vaccine 1965 Zoster vaccine (1 of 2) 1996 AAA Screen 2011 Colonoscopy 01/16/2019 01/16/2014, 01/16/2014 Influenza (Flu) vaccine (1 of 1 - 03/26/2022 03/29/2013, Influenza standard series) Medical Devices Implanted Type Area [employer] Officer Device Shelf Model / Identifier Expiration Serial / Date Lot Cable,Cut,Edg,Blnt,Ss,3tpr ([id number]) - [id number] IMPLANTS Midline: [employer] 04/01/2022 [id number] / Implanted: Qty: 4 on 07/07/2017 by Yuan Retana MD at [facility] [employer] - / [id number] Procedures Procedure Name Priority Date/Time Associated Diagnosis [...] time period is included. Analysis Performed At Patho logist Time Signature WBC 5.5 4.0 - 9.5 [facility] x10(3)/[facility] LABORATORY RBC 4.30 (L) 4.58 - [facility] 5.54 [facility] x10(6)/[facility] LABORATORY Hemoglobin 12.7 (L) 13.7 - [facility] 16.5 g/dL [facility] LABORATORY Hematocrit 39.4 (L) 40.5 - [facility] 48.5 % [facility] MCV 91.6 82.9 - [facility] 93.1 [facility] LABORATORY MCH 29.5 27.5 - [facility] 32.1 pg [facility] LABORATORY MCHC 32.2 32.0 - [facility] 35.7 g/dL [facility] LABORATORY Platelets 172 145 - 357 [facility] x10(3)/[facility] LABORATORY RDWSD 54.5 (H) 36.0 - [facility] 45.0 [facility] LABORATORY RDWCV 16.4 (H) 11.4 - [facility] 13.8 % [facility] LABORATORY MPV 9.2 7.6 - 12.9 [facility] LABORATORY nRBC % Auto 0.0 % [facility] LABORATORY nRBC Abs Auto 0.000 0.000 - [facility] 0.000 [facility] x10(3)/[facility] LABORATORY Specimen Anatomical Collection Method Collection Time Receive d Time (Source) Location / / Volume Laterality Blood 01/30/2022 2:12 PM 2 2:37 EDT PM EDT Resulting Agency Comment Spec In Lab Eddi Elizabeth Jr., MD HEMATOLOGY ORDERABLES Performing Organization Address City/State/ZIP [place] [address] (ABNORMAL) Differential, Automated (01/30/2022 2:12 PM EDT)Only the most recent of8 resultswithin the time period is included. P athologist Signature Neutrophils % 71.8 % [facility] LABORATORY Neutr Abs (ANC) 3.96 1.70 - [facility] 6.10 [facility] x10(3)/[facility] LABORATORY Lymphocytes % 16.3 % [facility] LABORATORY Lymphocytes Abs 0.9 0.9 - 3.2 [facility] x10(3)/[facility] LABORATORY Monocytes % 10.0 % [facility] LABORATORY Monocyte Abs 0.6 0.3 - 0.9 [facility] x10(3)/[facility] LABORATORY Eosinophils % 0.5 % [facility] LABORATORY Eosinophils Abs 0.0 0.0 - 0.4 [facility] x10(3)/[facility] LABORATORY Basophils % 0.5 % [facility] LABORATORY Basophils Abs 0.0 0.0 - 0.1 [facility] x10(3)/[facility] LABORATORY Immature Gran % 0.90 % [facility] LABORATORY Comment: Immature granulocytes(IG's)percentage an d absolute count will include metamyelocytes, myelocytes, and promyelo cytes. Blood smears from CBCs yielding IG's will be scanned manually for concor dance. If this scan disagrees with the automated IG or if promyelocytes are not ed, a manual differential will be performed. Melisa Gran Abs 0.05 (H) 0.00 - 0.04 x10(3)/[facility] LABORATORY Specimen Anatomical Collection Method Collection Time Receive d Time (Source) Location / / Volume Laterality Blood 01/30/2022 2:12 PM 2 2:37 EDT PM EDT Resulting Agency Comment Spec In Lab Eddi Elizabeth Jr., MD HEMATOLOGY ORDERABLES Performing Organization Address City/State/ZIP [place] [address] (ABNORMAL) Basic Metabolic Panel (non-fasting) (01/30/2022 2:12 PM EDT)Only the most recent of6 resultswithin the time period is included. athologist Signature Glucose Lvl 163 65 - 199 [facility] mg/dL [facility] LABORATORY Comment: Diabetes: >=200 mg/dL plus symp toms BUN 30 (H) 10 - 20 mg/dL [facility] LABORATORY Creatinine 1.47 0.80 - 1.50 mg/dL [facility] LABORATORY Sodium 140 135 - 145 mmol/L [facility] LABORATORY Potassium 4.2 3.5 - 5.0 mmol/L [facility] LABORATORY Comment: Please note: ??Patients with WBC >100,00 0 may have falsely elevated Potassium levels. ??For accurate Potassium quantif ication in these patients send serum separator tube (gold top) for subsequent determinations. ??Contact the Clinical Chemistry Laboratory if there are any qu estions. Chloride 101 98 - 107 mmol/L [facility] LABORATORY CO2 28 22 - 31 mmol/L [facility] LABORATORY Anion Gap 11 5 - 15 mmol/L [facility] LABORATORY Calcium 9.2 8.5 - 10.5 mg/dL [facility] LABORATORY Estimated GFR 49 (L) >=60 mL/min/1.73 m?? [facility] [...] Organization Address City/State/ZIP [place] [address] POCT Glucose (01/30/2022 1:41 PM EDT)Only the most recent of36 resultswithin the time period is included. athologist Signature POC Glucose 148 65 - 199 [facility] mg/dL [facility] LABORATORY Comment: Supplemental ranges: <140 mg/dL before meals <180 mg/dL all other times of the day Specimen Anatomical Collection Method Collection Time Receive d Time (Source) Location / / Volume Laterality Blood 01/30/2022 1:41 PM 2 1:41 EDT PM EDT Vitaliy Sandra Nobles MD POINT OF CARE TEST ORDERABLE S Performing Organization Address City/State/ZIP [place] [address] EKG 12 Lead (01/30/2022 [...] 435 ms MUSE SYSTEM (Bezet) Calculated P Stockwell 41 degrees MUSE SYSTEM Calculated R Stockwell -27 degrees MUSE SYSTEM Calculated T Stockwell 104 degrees MUSE SYSTEM INTERPRETATION Normal sinus rhythm MUSE SYSTEM Anterolateral infarct (cited on or before 09-DEC-2021) Abnormal ECG When compared with ECG of 10-DEC-2021 11:17, No significant change was found Confirmed by Gary Perez ([id number]) on 01/30/2022 5:57:5 2 PM Specimen Anatomical [...] SYSTEM - 01/30/2022 2:09 PM ED T ?[facility] ? Cardiac Cathete rization/Intervention Report ? Patient Name: Don Fatima. ? Procedure Date: 01/30/2022 ? A #: [id number] ? Primary Physician: Nobles, Vitaliy P ? Case #: [id number] ? File Name: [id number] ? Catheterization Order Number: [id number] ? [facility] ? Final Report [place], [place] ? Patient Name: ? Don E. Stewa rt ? ID#: ?[id number] ? : ?1945 ? Procedure Date: ? January 30, 2022 ? Case #: ? [id number] ? Room: ? 1 ? Case Physician: [...] a recent coronary ?intervention procedure. The pat jasson had remote coronary artery bypass ?surgery. He [...] procedure was Urgent. The indication for ?the laborer demolition visit is stable kn own CAD. Chest [...] diagonal ? branch (Diagonal 1) of brock MICHAEL. ? This vessel was not inje cted. ? Intravascular Imaging/Physiology: ?Intravascular Ultrasound was pe rformed in the entire vessel RPDA using a ?6 Fr IR 1.5 guiding catheter an d a 3.5 [address] [address] ??20 Mhz ?using Manual pullback. ??Imagin [...] ?? A premounted 2.00 x 26 mm [place] (TUCKER) ? was deployed wi th a [...] Wedelivered along 2.0 x 26 mm [place] ? TUCKER stent and p ositioned it at the ostium of the RPDA ? extending into the mid RPDA and deployed it at 12 darshan. We then ? usedellis em to post-dilate the stent to 20atm [...] dose administered prior to arrival in the laborer demolition. ?Recommended anti-platelet/anti- thrombotic regimen: ?Continue aspirin 81 [...] require ?modification of this regimen. C onsult [facility] Interventional Cardiology for ?questions. ?The 1 year bleeding risk as nusrat culated by the PRECISE DAPT score is High ?risk. ?High Bleeding Risk - Anticoagul ation and DAPT: ?- ??Assess ischemic and bleedin g risks using validated risk predictors ?(e.g. CHADS2-VASC, HAS-BLED, WA ECISE DAPT, DAPT Score) ?- ??Keep anticoagulant [...] RPDA using a 2.0 x 26 mm [place] TUCKER stent. ?This completes the revasculariz ation [...] Lopez ? Report Finalized: 01/30/2022 ??14:02 ? Vitaliy [...] P athologist Signature ProBNP 1,380 (H) <=124 [facility] pg/mL [facility] LABORATORY Specimen Anatomical Collection Method Collection Time Receive d Time (Source) Location / / Volume Laterality Blood 12/25/2021 7:46 AM 8:01 EDT AM EDT Resulting Agency Comment Spec In Lab Zulma Plunkett MD CHEMISTRY ORDERABLES Performing Organization Address City/State/[place] [address] SCAN DOC: TELEMETRY STRIPS [...] Signature Glucose 152 (H) 65 - 99 [facility] Fasting mg/dL [facility] LABORATORY Comment: ?Fasting* Glucose Interpretive C [...] of Diabetes Mellitus, Position Statement from the [place] Diabetes Association. ??Diabete s Care, Volume 33, Supplement 1, Jul 2009 BUN 52 (H) 10 - 20 mg/dL [facility] LABORATORY Creatinine 1.72 (H) 0.80 - 1.50 mg/dL [facility] LABORATORY Sodium 143 135 - 145 mmol/L [facility] LABORATORY Potassium 3.9 3.5 - 5.0 mmol/L [facility] LABORATORY Comment: Please note: ??Patients with WBC >100,00 0 may have falsely elevated Potassium levels. ??For accurate Potassium quantif ication in these patients send serum separator tube (gold top) for subsequent determinations. ??Contact the Clinical Chemistry Laboratory if there are any qu estions. Chloride 105 98 - 107 mmol/L [facility] LABORATORY CO2 21 (L) 22 - 31 mmol/L [facility] LABORATORY Anion Gap 17 (H) 5 - 15 mmol/L [facility] LABORATORY Calcium 8.9 8.5 - 10.5 mg/dL [facility] LABORATORY Estimated GFR 38 (L) >=60 mL/min/1.73 m?? [facility] LABORATORY Comment: This patient? s [...] Cuevas MD CHEMISTRY ORDERABLES Performing Organization Address City/[facility] Code Phon e Number [place] [phone] [address] (ABNORMAL) Prothrombin Time (12/12/2021 4:51 AM EDT)Only the most recent of4 resultswithin the time period is included. P athologist Signature PT 14.9 (H) 9.4 - 12.5 [facility] LABORATORY INR 1.3 [facility] LABORATORY Comment: An INR [...] Cuevas MD HEMATOLOGY ORDERABLES Performing Organization Address City/[facility]/ZIP Code Phon e Number [place] [phone] [address]OS[address] Magnesium (12/12/2021 4:51 AM EDT)Only the most recent of5 resultswithin the time period is included. P athologist Signature Magnesium 1.02 0.69 - 1.07 [facility] mmol/L [facility] LABORATORY Specimen Anatomical Collection Method Collection Time Receive d Time (Source) Location / / Volume Laterality Blood 12/12/2021 4:51 AM 5:06 EDT AM EDT Resulting Agency Comment Spec In Lab Iker Cuevas MD CHEMISTRY ORDERABLES Performing Organization Address City/State/ZIP [place] [address] COVID-19 PCR (12/11/2021 10:13 AM EDT) Patholo gist Method Time Signature SARS-CoV-2 Not Detected Not Detected [facility] RNA [facility] LABORATORY Comment: This result should be interpreted [...] diagnosis of COVID-19 is performed using the [place]-the [employer] Al[employer] m RONNA S-CoV-2 Assay as authorized by the FDA Emergency Use Authorization (EUA). This EUA assay is intended for In-vitro Diagnostic (IVD) use with respiratory sp ecimens such as nasopharyngeal swabs collected from individuals during the ac [place] phase of infection. This assay is performed based on the instructions for use provided by [employer] and additional guidance provided by CDC and FDA. Testing is performed in the Clinical Genomics and Advanced Technolog y Laboratory within the Department of Pathology and Laboratory Medicine at [facility], certified under the Clinical Laboratory Improvement [...] is infected. As required or requested by [facility], positive specimens may be sent for [...] clinical management guidance information are available at [facility] CDC Coronavirus Disease 2019 (COVID-19) webpage under Information fo r Healthcare Professionals (https://www.cdc.gov/coronavirus/2019-nc ov/hcp/index.html) Additional information about this and ot her EUA tests can be found in provider and patient fact sheets at the following FDA website: https://www.fda.gov/medical-devices/ywnssnakbnf-ahgycmx-9302-vtxik-68-hzuzfaait- ynf-nzyfgefdpuxapf-nxaotdu-devices/ncneb-xqkecmkgtia-hwmw SARS-Cov-2 RNA Source DATA WAREHOUSING ENGINEER Swab [facility] LABORATORY Specimen (Source) Anatomical Collection Method Collection Time Re ceived Time Location / / Volume Laterality Nasopharyngeal Swab 12/11/2021 10:13 0503/2022 AM EDT 11:16 AM EDT Comment: Symptoms->Surveillance Resulting Agency Comment Spec In Lab Iker Cuevas MD MICROBIOLOGY - GENERAL ORDER ROBS[place] Performing Organization Address City/State/ZIP Code Phon e Number [place] [phone] [address] Potassium (12/10/2021 7:46 PM EDT) P athologist Signature Potassium 4.2 3.5 - 5.0 [facility] mmol/L [facility] LABORATORY Comment: Please note: ??Patients [...] / Volume Laterality Blood 12/10/2021 7:46 PM 8:42 EDT PM EDT Resulting Agency Comment Spec In Lab Iker Cuevas MD CHEMISTRY ORDERABLES Performing Organization Address City/State/ZIP [place] [address] (ABNORMAL) Point of Care Blood Gas Historical (12/10/2021 9:04 AM EDT) Patholo gist Method Time Signature POC pH 7.40 7.35 - [facility] 7.45 [facility] LABORATORY POC PCO2 40 35 - 45 [facility] mmHg [facility] LABORATORY POC PO2 63 (L) 85 - 104 [facility] LABORATORY POC Base Excess 0.0 -3.0 - 3.0 [facility] K mmol/L [facility] LABORATORY POC HCO3 24.8 20.0 - [facility] 26.0 [facility] mmol/[facility] LABORATORY POC Sodium 143 135 - 145 [facility] mmol/L [facility] LABORATORY POC Potassium 3.7 3.5 - 5.0 [facility] mmol/L [facility] LABORATORY POC Ionized Ca 1.07 (L) 1.15 - [facility] 1.33 [facility] mmol/[facility] LABORATORY POC Hematocrit 30.0 (L) 40.0 - [facility] 51.0 % [facility] POC Calc Hgb 10.2 (L) 13.7 - [facility] 17.5 g/dL [facility] LABORATORY Comment: The calculation of hemoglobin f rom hematocrit assumes a normal MCHC. POC Bgas Loc CC LAB [facility] LABORATORY Specimen Anatomical Collection Method Collection Time Receive d Time (Source) Location / / Volume Laterality Blood 12/10/2021 9:04 AM 2 EDT 12:00 PM EDT Ifeanyi Truong MD CHEMISTRY ORDERABLES Performing Organization Address City/[facility]/[place] [address] Heparin (unfractionated) Level (12/10/2021 4:25 AM EDT)Only the most recent of5 resultswithin the time period is included. athologist Signature Heparin UFH 0.69 IU/mL [facility] LABORATORY Comment: Heparin (anti-Xa) levels should [...] Cuevas MD HEMATOLOGY ORDERABLES Performing Organization Address City/[facility]/[place] [address] (ABNORMAL) Troponin (12/09/2021 6:18 AM EDT)Only the most recent of3 results within the time period is included. athologist [facility] Troponin-T 1.13 (H) 0.00 - [facility] 0.00 ng/mL [facility] Comment: The 99th percentile for Troponin T is le ss than 0.01 ng/mL, any detectable cTnT concentration using this assay should be considered elevated. According to the third universal definit ion of myocardial infarction the following criteria with a clinical prese ntation consistent with acute myocardial ischemia meets the diagnosis for a myocardial infarction (PA). Detection of a rise and/or fall of [...] additional sample may be indicated. Reference: Third [place] Definition of Myocardial Infarction. Journal of the [place] College of [employer]iology 2012;60:1581-98 Specimen Anatomical Collection Method Collection Time Receive d Time (Source) Location / / Volume Laterality Blood 12/09/2021 6:18 AM 2 6:33 EDT AM EDT Resulting Agency Comment Spec In Lab Iker Cuevas MD CHEMISTRY ORDERABLES Performing Organization Address City/State/[place] [address] TSH (12/09/2021 6:18 AM EDT) P athologist Signature TSH 1.60 0.27 - 4.20 [facility] mcIU/mL [facility] LABORATORY Comment: Reference Interval (mcIU/mL): Females: ??First Trimester: 0.23-3.88 ??Second Trimester: 0.22-3.90 ??Third Trimester: 0.44-4.66 Specimen Anatomical Collection Method Collection Time Receive d Time (Source) Location / / Volume Laterality Blood 12/09/2021 6:18 AM 2 6:33 EDT AM EDT Resulting Agency Comment Spec In Lab Iker Cuevas MD CHEMISTRY ORDERABLES Performing Organization Address City/[facility]/[place] [address] (ABNORMAL) Hemoglobin A1c (12/09/2021 6:18 AM EDT) Analysis Performed At Patho logist Time Signature Hemoglobin A1C 7.4 (H) 4.3 - 5.6 [facility] [...] S67-74 Est Avg Gluc See note mg/dL [facility] [...] into estimated average glucose values. ??Diabetes Care 2008:31(8):8379-7098. Specimen Anatomical Collection Method Collection Time Receive d Time (Source) Location / / Volume Laterality Blood Venous Draw / 12/09/2021 6:18 AM 12/10/19 22 Unknown EDT 12:24 PM EDT Resulting Agency Comment Spec In Lab Migdalia BROWN CHEMISTRY ORDERABLES Performing Organization Address City/[facility]/ZIP Code Phon e Number [address] Hepatic Function Panel (12/09/2021 6:18 AM EDT) athologist Signature Total Protein 7.3 6.1 - 8.0 [facility] g/dL [facility] Albumin 4.2 3.2 - 5.2 [facility] g/dL [facility] AST 25 0 - 39 [facility] unit/L [facility] ALT 15 0 - 55 [facility] unit/L [facility] Alk Phos 75 40 - 130 [facility] unit/L [facility] LAB[facility]ATORY Total 1.1 0.2 - 1.3 [facility] Bilirubin mg/dL [facility] Bili, Direct 0.2 0.0 - 0.3 [facility] mg/dL [facility]ORY Specimen Anatomical Collection Method Collection Time Receive d Time (Source) Location / / Volume Laterality Blood 12/09/2021 6:18 AM 6:33 EDT AM EDT Resulting Agency Comment Spec In Lab Iker Cuevas MD CHEMISTRY ORDERABLES Performing Organization Address City/[facility]/[place] [address] Lipid Panel (Reflex Direct LDL) (12/09/2021 6:18 AM EDT) athologist Signature Chol, Total 105 mg/dL [facility] LABORATORY Comment: Lower Risk: <200 mg/dL Average Risk: 200-239 mg/dL Higher Risk: >yw=976 mg/dL Triglycerides 133 mg/dL [facility] LABORATORY Comment: Average Risk/Lower Risk: <150 mg/dL Borderline High Risk: 150-199 mg/dL High Risk: 200-499 mg/dL Very High Risk: >ks=436 mg/dL HDL 42 mg/dL [facility] LABORATORY Comment: Males: ?? Higher Risk: <40 mg/dL Females: ?? Higher Risk: <50 mg/dL LDL Cholesterol 36 mg/dL [facility] LABORATORY Comment: Lowest Risk: <100 mg/dL Lower Risk: 100-129 mg/dL Borderline High Risk: 130-159 mg/dL High Risk: 160-189 mg/dL Very High Risk: >pk=995 mg/dL Chol/HDL Ratio 2.5 ratio [facility] LABORATORY Lipid Interpretation See Note [facility] LABORATORY Comment: Lipid management should be guided by a p atient? s ASCVD risk, goals and preferences. ACC/AHA Guidelines recommend high intens ity statin if clinical ASCVD or LDL greater than or equal to 190 mg/dL. http://[employer].com/DNJ-SWF-Dafjborsx Adults aged 40-75 with LDL 70-189 mg/dL should have their 10 year ASCVD risk estimated with the ACC/AHA ASCVD risk es timator http://tools.acc.org/JVYJO-Mynf-Fbqcrwgf r/ Statin should be discussed if risk [...] Organization Address City/State/ZIP [place] [address] XR Chest One View [...] who have questions please contact the health administrator health care facility that requested your imaging first. ? Narrative [...] ho have questions please contact the health administrator health care facility that requested your imaging first. Amber Sanches MD IMG DX ORDERABLES (ABNORMAL) BLOOD GAS 2 ARTERIAL (12/09/2021 5:14 AM EDT) Analysis Performed At Patho logist Time Signature pH Art 7.43 7.35 - [facility] 7.45 [facility] LABORAT[facility] pCO2 Art 36 35 - 45 [facility] mmHg [facility] pO2 Art 67 (L) 85 - 104 [facility] LABORATORY HCO3 Art 23.4 20.0 - [facility] 26.0 [facility] mmol/L [facility] LABORATORY BE Art -0.9 -3.0 - 3.0 [facility] mmol/L [facility] LABORATORY Hgb Blood Gas 13.2 (L) 13.7 - [facility] 16.5 g/dL [facility] LABORATORY O2HB Art 91.3 (L) 94.0 - [facility] 97.0 % [facility] LABORATORY COHB Art 0.4 % [facility] LABORATORY Comment: Nonsmokers: 0.5-1.5% COHB Smokers: Variable, but usually less than 10% Toxic: 20-30% COHB Lethal: Greater than 60% COHB METHB Art 0.4 <=1.5 % [facility] LABORATORY Na Whole Blood 138 135 - 145 mmol/L [facility] LABORATORY K Whole Blood 4.1 3.5 - 5.0 mmol/L [facility] LABORATORY Comment: Please note: Patients with WBC >100,000 may have falsely elevated Potassium levels. Contact the Clinical Chemistry L aboratory if there are any questions. ICa Whole Blood 1.09 (L) 1.15 - 1.33 mmol/L [facility] LABORATORY Comment: Note: ??Total bilirubin higher than 20 m g/dL may lead to falsely low ionized calcium. CL Whole Blood 104 98 - 107 mmol/L [facility] LABORATORY Gluc Whole Bld 223 (H) 65 - 199 mg/dL [facility] LABORATORY Comment: Diabetes: >=200 mg/dL plus symp toms. Lactate WB 2.7 (H) 0.5 - 2.2 mmol/L [facility] LABORAT[facility] FIO2 Art 35 % [facility] Flow Art 8.0 LPM [facility] PF Ratio Art 191 [facility] LABORATORY Specimen Anatomical Collection Method Collection Time Receive d Time (Source) Location / / Volume Laterality Blood 12/09/2021 5:14 AM 5:14 EDT AM EDT Iker Cuevas MD CHEMISTRY ORDERABLES Performing Organization Address City/State/[place] [address] COVID-19 PCR (12/08/2021 5:00 PM EDT) [facility] Method Time Signature SARS-CoV-2 Not Detected Not Detected BARBARA RNA PCR [facility] LABORATORY Comment: This result should be interpreted in com bination with the clinical observations, patient history and epidem iological information. For testing of asymptomatic individuals, assay performa nce characteristics and clinical utility have not been evaluated. Testing for SARS-CoV-2 (Severe acute respiratory syndrome coronavirus 2, form erly known as 2018 novel coronavirus or 2019-nCoV) to aid in the diagnosis of CO VID-19 is performed using the Simplexa COVID-19 Direct Assay by Edfa3lyu Enablon as authorized by the FDA issued Emergency [...] Department of Pathology and Laboratory Medicine at [facility], certified under the Clinical Laboratory Improvement Amendmen ts of 1987 (CLIA), 42 U.S.C. section 263a, to perform [...] clinical management guidance information are available at [facility] CDC Coronavirus Disease 2019 (COVID-19) webpage under Information fo r Healthcare Professionals (https://www.cdc.gov/coronavirus/2019-nc ov/hcp/index.html). Additional information about this and ot her EUA tests can be found in provider and patient fact sheets at the following FDA website: https://www.fda.gov/medical-devices/vkgzwhdiqqg-ttqvpqx-1758-hpkix-74-ioelokrjp- fdk-iwuiltadkruztr-cpuxbqf-devices/noicw-nndvjkdpyio-zglv SARS-CoV-2 Source DATA WAREHOUSING ENGINEER Swab [facility] LABORATORY Specimen (Source) Anatomical Collection Method Collection Time Re ceived Time Location / / Volume Laterality Nasopharyngeal Swab 12/08/2021 5:00 12/08 PM EDT 6:03 PM EDT Comment: Symptoms->Surveillance Resulting Agency Comment Spec In Lab Iker Cuevas MD MICROBIOLOGY - GENERAL ORDER [place] Performing Organization Address City/State/ZIP [place] [address] Scan Doc: Echo (12/08/2021) [...] Address City/State/ZIP Code Phon e Number RAD RAD [place], [place] Scan Doc: ECG (12/07/2021) Narrative This result has an attachment that is no t available. Historical Provider MEDIA MGR SCAN EXT ORDR/RSLT from Last 3 Months Insurance Payer Benefit Plan / Subscriber ID Effective Phone Address T ype Group Dates MEDICARE MEDICARE PART [id number] 2011-Prese [phone] [place] [id number] [employer] [place] [id number] 2018-Prese [phone] [address] [place] [address] [place] [address] Advance Directives Documents on File Type Date Recorded Patient Retail Experience Specialist Explanati on Advance Directives and Living 03/28/2013 [...] capacity to make decision: Yes Care Teams [employer] Sales Consultant Relationship Specialty Start Date End Date Lovely Vicente MD PCP - General 04/16/[address] [facility] [address] [place] [address]
--- OUTSIDE RECORDS SUMMARY | 2022-02-13 11:09 | XMS_ITS | Encounter Summary ---
:1945 [address] Organization [facility] [place] [address] Care Team Providers Name Role Phone Lovely Vicente MD Primary Care Provider Reason for Visit Auth/Cert Specialty Diagnoses / Procedures Referred By Contact Refer red To Contact Diagnoses ASCVD (arteriosclerotic cardiovascular disease) [I25.10] iVtaliy Nobles MD [facility] Procedures PRO PERC TRLUML CORONARY STENT W/ANGIO ONE ART/BRANCH CARDIAC CATHETERIZATION STENT PLACEMENT-SINGLE MAJOR CORONARY ARTERY OR BRANCH [facility] [place] [address] Referral ID Status Reason Start Date Expiration Date Visits Requ ested Visits Authorized [id number] 1 1 Encounter Details Date Type Department Care Team Description 01/30/2022 Laboratory Lab 3L Katalina ASCVD (arterios clerotic Appointment [facility] cardiovas cular disease) [place] [address] Social History Tobacco Use Types Packs/Day Years [...] Liz Poole PA [facility] er Cardiology Dept [place], [place] [address] (Wo rk) 03/26/2022 Office Visit Cardiology Vitaliy Nobles MD [facility] CARDIOLOGY [place], [place] [address] (Wo rk) documented [...] (ABNORMAL) Differential, Automated (01/30/2022 7:19 AM EDT) [facility] gist Method Time Signature Neutrophils % 77.9 % [facility] LABORATORY Neutr Abs (ANC) 5.31 1.70 - [facility] 6.10 [facility] x10(3)/[facility] LABORATORY Lymphocytes % 12.0 % [facility] LABORATORY Lymphocytes Abs 0.8 (L) 0.9 - 3.2 [facility] x10(3)/[facility] LABORATORY Monocytes % 8.1 % [facility] LABORATORY Monocyte Abs 0.6 0.3 - 0.9 [facility] x10(3)/[facility] LABORATORY Eosinophils % 0.4 % [facility] LABORATORY Eosinophils Abs 0.0 0.0 - 0.4 [facility] x10(3)/[facility] LABORATORY Basophils % 0.6 % [facility] LABORATORY Basophils Abs 0.0 0.0 - 0.1 [facility] x[facility] LABORATORY Immature Gran % 1.00 % [facility] LABORATORY Comment: Immature granulocytes(IG's)percentage an d absolute count will include metamyelocytes, myelocytes, and promyelo cytes. Blood smears from CBCs yielding IG's will be scanned manually for concor dance. If this scan disagrees with the automated IG or if promyelocytes are not ed, a manual differential will be performed. Melisa Gran Abs 0.07 (H) 0.00 - 0.04 x10(3)/[facility] LABORATORY Specimen Anatomical Collection Method Collection Time Receive d Time (Source) Location / / Volume Laterality Blood 01/30/2022 7:19 AM 7:21 EDT AM EDT Resulting Agency Comment Spec In Lab Zulma BROWN HEMATOLOGY ORDERABLES Performing Organization Address City/State/[place] [address] (ABNORMAL) Hemogram (01/30/2022 7:19 AM EDT) Analysis Performed At Patho logist Time Signature WBC 6.8 4.0 - 9.5 [facility] x10(3)/[facility] LABORATORY RBC 4.32 (L) 4.58 - [place] [facility] 5.54 [facility] x10(6)/[facility] LABORATORY Hemoglobin 13.0 (L) 13.7 - [facility] 16.5 g/dL [facility] LABORATORY Hematocrit 39.8 (L) 40.5 - [facility] RYAN 48.5 % [facility] LABORATORY MCV 92.1 82.9 [facility] LABORATORY MCH 30.1 27.5 - [place] 32.1 pg [facility] LABORATORY MCHC 32.7 32.0 - [facility] RYAN 35.7 g/dL [facility] LABORATORY Platelets 172 145 - 357 [facility] x10(3)/[facility] LABORATORY RDWSD 54.5 (H) 36.0 - [place] 45.0 [facility] LABORATORY RDWCV 16.2 (H) 11.4 - [facility] RYAN 13.8 % [facility] LABORATORY MPV 9.0 7.6 - 12.9 [facility] LABORATORY nRBC % Auto 0.0 % [facility] LABORATORY nRBC Abs Auto 0.000 0.000 - [facility] 0.000 [facility] x10(3)/[facility] LABORATORY Specimen Anatomical Collection Method Collection Time Receive d Time (Source) Location / / Volume Laterality Blood 01/30/2022 7:19 AM 7:21 EDT AM EDT Resulting Agency Comment Spec In Lab Zulma BROWN HEMATOLOGY ORDERABLES Performing Organization Address City/State/[place] [address] (ABNORMAL) Basic Metabolic Panel (non-fasting) (01/30/2022 7:19 AM EDT) P athologist Signature Glucose Lvl 237 (H) 65 - 199 [facility] mg/dL [facility] LABORATORY Comment: Diabetes: >=200 mg/dL plus symp toms BUN 34 (H) 10 - 20 mg/dL [facility] LABORATORY Creatinine 1.45 0.80 - 1.50 mg/dL [facility] LABORATORY Sodium 141 135 - 145 mmol/L [facility] LABORATORY Potassium 4.7 3.5 - 5.0 mmol/L [facility] LABORATORY Comment: Please note: ??Patients with WBC >100,00 0 may have falsely elevated Potassium levels. ??For accurate Potassium quantif ication in these patients send serum separator tube (gold top) for subsequent determinations. ??Contact the Clinical Chemistry Laboratory if there are any qu estions. Chloride 100 98 - 107 mmol/L [facility] LABORATORY CO2 30 22 - 31 mmol/L [facility] LABORATORY Anion Gap 11 5 - 15 mmol/L [facility] LABORATORY Calcium 9.5 8.5 - 10.5 mg/dL [facility] LABOR[facility]ORY Estimated GFR 50 (L) >=60 mL/min/1.73 m?? [facility] LABORATORY Comment: This patient's [...] Organization Address City/State/ZIP Code Phon e Number [place] [phone] documented in this encounter Visit Diagnoses Diagnosis ASCVD (arteriosclerotic cardiovascular d isease) Unspecified cardiovascular disease documented in this encounter Care Teams Sport Intern Relationship Specialty Start Date End Date Lovely Vicente MD PCP - General 04/16/[address] [place] [address] documented as of this encounter
--- OUTSIDE RECORDS SUMMARY | 2022-02-13 11:09 | XMS_ITS | Encounter Summary ---
:1945 Author Organization [facility] Address [facility] [place] [address] Care Team Providers Name Role Phone Lovely Vicente MD Primary Care Provider Reason for Visit Auth/Cert Specialty Diagnoses / Procedures Referred By Contact Refer red To Contact Diagnoses ASCVD (arteriosclerotic cardiovascular disease) [I25.10] Vitaliy Nobles MD [facility] Procedures PRO PERC TRLUML CORONARY STENT W/ANGIO ONE ART/BRANCH CARDIAC CATHETERIZATION STENT PLACEMENT-SINGLE MAJOR CORONARY ARTERY OR BRANCH [facility] [place] [address] Referral ID Status Reason Start Date Expiration Date Visits Requ ested Visits Authorized [id number] 1 1 Encounter Details Date Type Department Care Team Description 01/30/2022 Hospital Encounter Short Stay Unit at Vitaliy Nobles, CVD (arteriosclerotic cardiovascular disease); Barbara Blue MD 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 We have made a referral to cardiac rehab. Please see the attached instructions regarding care to your right wrist access site. AttachmentsThe following attachments cannot be sent through Care Everywhere. Coronary Angiogram: Post-op (Chinese)documented in this encounter Medications at Time of [...] Murray RN - 01/30/2022 4:54 PM EDT [facility] Short Stay Unit Discharge Note All relevant [...] recent PCI presenting for staged PCI to [facility]. The pt states he has been [...] recent PCI presenting for staged PCI to [facility]. The indications, expected benefits, and potential [...] SSU team Don has history of prior OH and CABG. I had referred him to cardiac rehab at [facility] last month per HF team. He was waiting until this intervention before starting the program. Reviewed managing angina /use of sl nitroglycerin. Given parameters for home exercise. 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 We discussed short walks several times per day. Will send [facility] his discharge summary from this admission. The patient should be contacted by the Program within 1- 2 weeks from discharge. Brief Op Note - Vitaliy Nobles MD - 01/30/2022 10:19 AM EDT Images from the original note were not included. [facility] [place] [address] CORONARY ANGIOGRAM AND PERCUTANEOUS CORONARY INTERVENTION REPORT Patient: Don Fatima : 1945 MR number: [id number] Date of Service: 01/30/2022 Literary Agent: Vitaliy Nobles MD Fellow: AJ DeLago INDICATION: [...] a long 2.0 x 26 mm HARDEEP Iroquois TUCKER stent and positioned it at the [...] using a 2.0 x 26 mm HARDEEP Iroquois TUCKER stent. This completes the revascularization ofall [...] Poole PA [facility] Cardiology Dept [place], [place] [address] (Wo rk) 03/26/2022 Office Visit Cardiology Vitaliy Nobles MD [facility] CARDIOLOGY [place], [place] [address] (Wo lissa) Scheduled Orders Name Type Priority Associated Diagnoses [...] P athologist Signature Neutrophils % 71.8 % [facility] Neutr Abs (ANC) 3.96 1.70 - [facility] 6.10 [facility] x10(3)/[facility] LABORATORY Lymphocytes % 16.3 % [facility] Lymphocytes Abs 0.9 0.9 - 3.2 [facility] x10(3)/[facility] LABORATORY Monocytes % 10.0 % [facility] Monocyte Abs 0.6 0.3 - 0.9 [facility] x10(3)/[facility] LABORATORY Eosinophils % 0.5 % [facility] Eosinophils Abs 0.0 0.0 - 0.4 [facility] x10(3)/[facility] LABORATORY Basophils % 0.5 % [facility] Basophils Abs 0.0 0.0 - 0.1 [facility] x10(3)/[facility] LABORATORY Immature Gran % 0.90 % [facility] Comment: Immature granulocytes(IG's)percentage an d absolute count will include metamyelocytes, myelocytes, and promyelo cytes. Blood smears from CBCs yielding IG's will be scanned manually for concor dance. If this scan disagrees with the automated IG or if promyelocytes are not ed, a manual differential will be performed. Melisa Gran Abs 0.05 (H) 0.00 - 0.04 x10(3)/[facility] LABORATORY Specimen Anatomical Collection Method Collection Time Receive d Time (Source) Location / / Volume Laterality Blood 01/30/2022 2:12 PM 2 2:37 EDT PM EDT Resulting Agency Comment Spec In Lab Eddi Elizabeth Jr., MD HEMATOLOGY ORDERABLES Performing Organization Address City/State/[place] [address] (ABNORMAL) Hemogram (01/30/2022 2:12 PM EDT) Analysis Performed At Patho logist Time Signature WBC 5.5 4.0 - 9.5 [facility] x10(3)/[facility] LABORATORY RBC 4.30 (L) 4.58 - [facility] 5.54 [facility] x10(6)/[facility] LABORATORY Hemoglobin 12.7 (L) 13.7 - [facility] 16.5 g/dL [facility]ORY Hematocrit 39.4 (L) 40.5 - [facility] 48.5 % [facility] MCV 91.6 82.9 - [facility] 93.1 fL [facility] MCH 29.5 27.5 - [facility] 32.1 pg [facility] MCHC 32.2 32.0 - [facility] 35.7 g/dL [facility]ORY Platelets 172 145 - 357 [facility] x10(3)/[facility] LABORATORY RDWSD 54.5 (H) 36.0 - [facility] 45.0 [facility] LABORATORY RDWCV 16.4 (H) 11.4 - [facility] 13.8 % [facility] LABORATORY MPV 9.2 7.6 - 12.9 [facility] LABORATORY nRBC % Auto 0.0 % [facility]ORY nRBC Abs Auto 0.000 0.000 - [facility] 0.000 [facility] x10(3)/[facility] LABORATORY Specimen Anatomical Collection Method Collection Time Receive d Time (Source) Location / / Volume Laterality Blood 01/30/2022 2:12 PM 2 2:37 EDT PM EDT Resulting Agency Comment Spec In Lab Eddi Elizabeth Jr., MD HEMATOLOGY ORDERABLES Performing Organization Address City/State/ZIP Code Phon e Number [place] [id number] [address]OS[address] LAB[address] (ABNORMAL) Basic Metabolic Panel (non-fasting) (01/30/2022 2:12 PM EDT) P athologist Signature Glucose Lvl 163 65 - 199 [facility] mg/dL [facility] Comment: Diabetes: >=200 mg/dL plus symp toms BUN 30 (H) 10 - 20 mg/dL [facility] Creatinine 1.47 0.80 - 1.50 mg/dL [facility]ORATORY Sodium 140 135 - 145 mmol/L [facility]OR[facility]ORY Potassium 4.2 3.5 - 5.0 mmol/L [facility] [...] mmol/L [facility] Anion Gap 11 5 - 15 mmol/L [facility] Calcium 9.2 8.5 - 10.5 mg/dL [facility]ORATORY Estimated GFR 49 (L) >=60 mL/min/1.73 m?? [facility] Comment: This patient's estimated [...] Organization Address City/State/ZIP Code Phon e Number [address] POCT Glucose (01/30/2022 1:41 PM EDT) athologist Signature POC Glucose 148 65 - 199 [facility] mg/dL [facility] Comment: Supplemental ranges: <140 mg/dL before meals <180 mg/dL all other times of the day Specimen Anatomical Collection Method Collection Time Receive d Time (Source) Location / / Volume Laterality Blood 01/30/2022 1:41 PM 2 1:41 EDT PM EDT Vitaliy Nobles MD POINT OF CARE TEST ORDERABLE S Performing Organization Address City/State/ZIP Code Phon e Number [address] POCT Glucose (01/30/2022 10:48 AM EDT) athologist Signature POC Glucose 193 65 - 199 [facility] mg/dL [facility] Comment: Supplemental ranges: <140 mg/dL before meals <180 mg/dL all other times of the day Specimen Anatomical Collection Method Collection Time Receive d Time (Source) Location / / Volume Laterality Blood 01/30/2022 10:48 01/30/2022 AM EDT 10:48 AM EDT Vitaliy Sandra Nobles MD POINT OF CARE TEST ORDERABLE S Performing Organization Address City/[facility]/[place] [address] EKG 12 Lead (01/30/2022 10:33 AM EDT) Component Value Ref Range Test Analysis Performed Pathologis t Method Time At Signature Ventricular rate 64 BPM MUSE SYSTEM Atrial Rate 64 BPM MUSE SYSTEM P-R Interval 162 ms MUSE SYSTEM QRS Duration 94 ms MUSE SYSTEM Q-T Interval 422 ms MUSE SYSTEM QTC Calculated 435 ms MUSE SYSTEM (Bezet) Calculated P [place] 41 degrees MUSE SYSTEM Calculated R [place] -27 degrees MUSE SYSTEM Calculated T [place] 104 degrees MUSE SYSTEM INTERPRETATION Normal sinus rhythm MUSE SYSTEM Anterolateral infarct (cited on or before 09-DEC-2021) Abnormal ECG When compared with ECG of 10-DEC-2021 11:17, No significant change was found Confirmed by Gary Perez ([id number]) on 01/30/2022 5:57:5 2 PM Specimen Anatomical Collection Method Collection Time Receive d Time (Source) Location / / Volume Laterality 01/30/2022 10:33 01/30/2022 5:57 AM EDT PM EDT Vitaliy Sandra Nobles MD ECG ORDERABLES Performing Organization Address City/[facility]/ZIP Code Phon e Number MUSE SYSTEM CARDIAC CATHETERIZATION (01/30/2022 10:16 AM EDT) Specimen (Source) Anatomical Location Collection Method / Collectio n Time Received Time / Laterality Volume Narrative CARDIOMAC SYSTEM - 01/30/2022 2:09 PM ED T ?[facility] ? Cardiac Cathete rization/Intervention Report ? Patient Name: Don Fatima. ? Procedure Date: 01/30/2022 ? A #: [id number] ? Primary Physician: Nobles, Vitaliy P ? Case #: [id number] ? File Name: [id number] ? Catheterization Order Number: [id number] ? [facility] ? Final Report [place], [place] ? Patient Name: ? Don E. Stewa rt ? ID#: ?[id number] ? : ?1945 ? Procedure Date: ? January 30, 2022 ? Case #: ? [id number] ? Room: ? 1 ? Case Physician: [...] kacie gnated as ASA Class III. The [facility] clinical ?frailty scale is 5: Mildly Frai [...] procedure was Urgent. The indication for ?the director geophysical laboratory visit is stable kn own CAD. Chest [...] guiding catheter an d a 3.[address] [facility] [address] ??20 Mhz ?using Manual pullback. ??Imagin [...] A premounted 2.00 x 26 mm Hardeep Iroquois (TUCKER) ? was deployed wi th a [...] Wedelivered along 2.0 x 26 mm HARDEEP Iroquois ? TUCKER stent and p ositioned it [...] dose administered prior to arrival in the director geophysical laboratory. ?Recommended anti-platelet/anti- thrombotic regimen: ?Continue aspirin 81 [...] may require ?modification of this regimen. C [facility] Interventional Cardiology for ?questions. ?The 1 year bleeding risk as nusrat culated by the PRECISE DAPT score is High ?risk. ?High Bleeding Risk - Anticoagul ation and DAPT: ?- ??Assess ischemic and bleedin g risks using validated risk predictors ?(e.g. CHADS2-VASC, HAS-BLED, DC ECISE DAPT, DAPT Score) ?- ??Keep anticoagulant [...] using a 2.0 x 26 mm HARDEEP Iroquois TUCKER stent. ?This completes the revasculariz ation [...] ? Report Finalized: 01/30/2022 ??14:02 ? Vitaliy Sandra Nobles MD CARDIAC CATH ORDERABLES Performing Organization Address City/[facility]/ZIP Code Phon e Number CARDIOMAC SYSTEM (ABNORMAL) POCT Glucose (01/30/2022 9:04 AM EDT) P athologist Signature POC Glucose 212 (H) 65 - 199 [place] mg/dL [facility] Comment: Supplemental ranges: <140 mg/dL before meals <180 mg/dL all other times of the day Specimen Anatomical Collection Method Collection Time Receive d Time (Source) Location / / Volume Laterality Blood 01/30/2022 9:04 AM 2 9:04 EDT AM EDT Vitaliy Sandra Nobles MD POINT OF CARE TEST ORDERABLE S Performing Organization Address [facility] [place] [address] (ABNORMAL) POCT Glucose (01/30/2022 8:10 AM EDT) P athologist Signature POC Glucose 224 (H) 65 - 199 [place] [facility] mg/dL [facility] Comment: Supplemental ranges: <140 mg/dL before meals <180 mg/dL all other times of the day Specimen Anatomical Collection Method Collection Time Receive d Time (Source) Location / / Volume Laterality Blood 01/30/2022 8:10 AM 2 8:10 EDT AM EDT Vitaliybrock Nobles MD POINT OF CARE TEST ORDERABLE S Performing Organization Address City/[facility]/[place] [address] documented in this encounter Visit Diagnoses Diagnosis ASCVD (arteriosclerotic cardiovascular d isease) Unspecified cardiovascular disease 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 ASHD (arteriosclerotic heart disease) Coronary atherosclerosis of unspecified type of vessel, [place] or graft ASCVD (arteriosclerotic cardiovascular d isease) Unspecified cardiovascular disease documented in this encounter Admitting Diagnoses Diagnosis CAD (coronary artery disease) Coronary atherosclerosis of unspecified type of vessel, [place] or graft documented in this encounter Administered Medications Inactive Administered Medications - up to 3 most recent administrations Medication Order MAR Action Action Date Dose Rate Site clopidogreL (Plavix) 300 mg tablet 1 dose, Starting on Wed01/30/22 at 1039, Until Wed at 1045, MADDISON FARMER: gita overryi clopidogreL (Plavix) tablet 600 mg Given 01/30/2022 [...] Procedure), Routine niCARdipine (Cardene) (100 mcg/mL) dilution (DIVISION CHIEF) (CANCELED ) 0927 (Given - Provider: Vitaliy [...] (Intra-Procedure) documented in this encounter Care Teams Program Consultant Relationship Specialty Start Date End Date Lovely Vicente MD PCP - General 04/16/[address] [place] [address] documented as of this encounter
--- OUTSIDE RECORDS SUMMARY | 2022-02-13 11:09 | XMS_ITS | Encounter Summary ---
:1945 [place] [address] Care Team Providers Name Role Phone Lovely Vicente MD Primary Care Provider Encounter Details Date Type Department Care Team Description 12/30/2021 Notes Only [facility], [place] [address] Social History Tobacco Use Types Packs/Day [...] Failure team. DX: HFrEF. [facility] documented in this encounter Plan of Treatment Upcoming Encounters Date Type Specialty Care Team Description 02/19/2022 Laboratory Appointment Lab 02/19/2022 Office Visit Cardiology Liz Poole PA [facility] Cardiology Dept [place], [place] [address] (Wo rk) 03/26/2022 Office Visit Cardiology Vitaliy Nobles MD [facility] CARDIOLOGY [place], [place] [address] (Wo rk) documented as of this encounter Visit Diagnoses Not on filedocumented in this encounter Care Teams Punch Operator Relationship Specialty Start Date End Date Lovely Vicente MD PCP - General 04/16/[address] [place] [address] documented as of this encounter
--- OUTSIDE RECORDS SUMMARY | 2022-02-13 11:10 | XMS_ITS | Encounter Summary ---
:1945 Author Organization [facility] [place] [address] Care Team Providers Name Role Phone Lovely Vicente MD Primary Care Provider Encounter Details Date Type Department Care Team Description 03/20/2021 Ancillary Procedure Radiology [facility] [place] [address] [place] [address] [phone] Social History Tobacco Use Types Packs/Day Years [...] [facility] Card[facility] Dept [place], [place] [address] (Wo rk) 03/26/2022 Office Visit Cardiology Vitaliy Nobles MD [facility] CARDIOLOGY [place], [place] [address] (Wo rk) documented as of [...] Organization Address City/State/ZIP Code Phon e Number [place], [place] documented in this encounter Visit Diagnoses Not on filedocumented in this encounter Care Teams Ring Facer Relationship Specialty Start Date End Date Lovely Vicente MD PCP - General 04/16/[address] [place] [address] documented as of this encounter
--- OUTSIDE RECORDS SUMMARY | 2022-02-13 11:10 | XMS_ITS | Encounter Summary ---
:1945 Author Organization [facility] [place] [address] Care Team Providers Name Role Phone Lovely Vicente MD Primary Care Provider Reason for Referral Diagnostic Test (Routine) - Closed Specialty Diagnoses / Procedures Referred By Contact Refer red To Contact Diagnoses Chronic systolic heart failure Liz Poole PA Procedures Echocardiogram Transthoracic([facility] or [facility]) [facility] [place] [address] Referral ID Status Reason Start Date Expiration Date Visits V isits Requested Authorized [id number] Closed Specialty 04/17/2021 10/14/2021 1 1 Service Requested Encounter Details Date Type Department Care Team Description 04/16/2021 Office Visit Cardiology at [facility] Liz Poole, Chronic systolic heart [facility] [place] [address] Cardiology Dept [phone] [place], [place] [address] Social History Tobacco Use Types [...] was feeling good. 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 Post-op atrial fibrillation [id number] 7 (CHF, HTN, DM, vascular disease, thromboembolism) On warfarin - recent labile INR Will discuss with PCP, option of Eliquis 7. PAD 08/06/2017: Right 1st, 2nd, 3rd toe amputation 08/11/2017: Left??femoral arterial access, RLE??angiogram, Balloon angioplasty of R PT 10/25/2017: right popliteal-pedal bypass at [facility] 8. Hypothyrodism S/p thyroidectomy for goiter [...] PA [facility] Cardiology Dept [place], [place] [address] (Mikayla alcaraz) 03/26/2022 Office Visit Cardiology Vitaliy Nobles MD [facility] CARDIOLOGY [place], [place] [address] (Mikayla alcaraz) Scheduled Orders Name Type Priority Associated Order Schedule Diagnoses Echocardiogram Echocardiography Routine Chronic systolic Expec vlad: Transthoracic([facility] or heart failure 10/15 NL) (Approximate), Expires: 04/16/2022 documented as of this encounter Results (ABNORMAL) Basic Metabolic Panel (non-fasting) (04/16/2021 9:58 AM EDT) athologist Signature Glucose Lvl 77 65 - 199 [facility] mg/dL [facility] Comment: Diabetes: >=200 mg/dL plus symp toms BUN 23 (H) 10 - 20 mg/dL [facility] Creatinine 1.26 0.80 - 1.50 mg/dL [facility] Sodium 140 135 - 145 mmol/L [facility] Potassium 5.2 (H) 3.5 - 5.0 mmol/L [facility] Comment: Please note: ??Patients with WBC >100,00 0 may have falsely elevated Potassium levels. ??For accurate Potassium quantif ication in these patients send serum separator tube (gold top) for subsequent determinations. ??Contact the Clinical Chemistry Laboratory if there are any qu estions. Chloride 103 98 - 107 mmol/L [facility] CO2 28 22 - 31 mmol/L [facility] Anion Gap 9 5 - 15 mmol/L [facility] Calcium 9.3 8.5 - 10.5 mg/dL [facility] Estimated GFR 55 (L) >=60 mL/min/1.73 m?? [facility] Comment: This patient? s estimated [...] Organization Address City/State/[place] [address] (ABNORMAL) pro-Brain Natriuretic Peptide (04/16/2021 9:58 AM EDT) P athologist Signature ProBNP 523 (H) <=124 pg/mL [facility] Specimen Anatomical Collection Method Collection Time Receive d Time (Source) Location / / Volume Laterality Blood 04/16/2021 9:58 AM EDT 10:02 AM EDT Resulting Agency Comment Spec In Lab Zulma Plunkett MD CHEMISTRY ORDERABLES Performing Organization Address City/State/[place] [address] documented in this encounter Visit Diagnoses Diagnosis Chronic systolic heart failure documented in this encounter Care Teams Hydrographic Surveyor Relationship Specialty Start Date End Date Lovely Vicente MD PCP - General 04/16/[address] [place] [address] documented as of this encounter
--- OUTSIDE RECORDS SUMMARY | 2022-02-13 11:10 | XMS_ITS | Encounter Summary ---
:1945 Author Organization [facility] [place] [address] Care Team Providers Name Role Phone Lovely Vicente MD Primary Care Provider Encounter Details Date Type Department Care Team Description 12/08/2021 External Results Non-Invasive Cardiology Lab Mar y None [facility] [place] [address] Social History Tobacco Use Types Packs/Day [...] Liz Poole PA [facility] er Cardiology Dept [place], [place] [address] (Wo rk) 03/26/2022 Office Visit Cardiology Vitaliy Nobles MD [facility] ER CARDIOLOGY [place], [place] [address] (Wo rk) documented as of [...] on filedocumented in this encounter Care Teams Ep Specialist Relationship Specialty Start Date End Date Lovely Vicente MD PCP - General 04/16/[address] [place] [address] documented as of this encounter
--- OUTSIDE RECORDS SUMMARY | 2022-02-13 11:10 | XMS_ITS | Encounter Summary ---
:1945 Author Organization [facility] [place] [address] Care Team Providers Name Role Phone Lovely Vicente MD Primary Care Provider Reason for Referral Consultation (Routine) - Closed Specialty Diagnoses / Referred By Contact Referred To Contact Procedures Cardiac Rehabilitation Diagnoses Acute HFrEF (heart failure with reduced ejection fraction) Janneth Padilla, Cardiac Rehab, [address] [place] CARDIOLOGY DEPT. [address] [place] [address] Referral ID Status Reason Start Date Expiration Date Visits V isits Requested Authorized [id number] Closed Consult, 12/12/2021 12/12/2022 36 36 Test & Treat Reason for Visit Auth/Cert Specialty Diagnoses / Procedures Referred By Contact Refer red To Contact Diagnoses NSTEMI Procedures emerg ipi Referral ID Status Reason Start Date Expiration Date Visits Requ ested Visits Authorized [id number] 1 1 Encounter Details Date Type Department Care Team Description 12/08/2021 - Hospital Encounter Intermediate Cardiac Iker Cuevas MD [facility] [place] [address] Non-ST elevation myocardial infarction ( NSTEMI); 12/12/2021 Care Unit Ifeanyi Rene MD [facility] [place] [address] ST elevation myocardial infarction (STEM I), unspecified artery; [facility] Acute HFr EF (heart failure with reduced ejection fraction) [place] [address] Social History Tobacco Use Types Packs/Day Years [...] Don Fatima Patient Age: 76 y.o. Language: Greek Race: White Ethnicity: Not nor Admit date: [...] patient Inpatient Provider Contact Information: MD Migdalia Peetr PA-C Kelly LaFlamme PA-C Cardiovascular Medicine [phone] Discharge Diagnoses (Hospital Problems) and Secondary Diagnoses [...] 3.75 guiding catheter and a 3.5 Fr [place] 20 Mhz using Manual pullback. Imaging was successful. Image quality was good. The ostial LCX showed moderate diffuse atherosclerotic plaque with scattered three quadrant calcification. Measurements were performed after pre-dilation. Post Intervention: The stent was well expanded and apposed. Intravascular Ultrasound was performed in the distal LM using a 7 Fr EBU 3.75 guiding catheter and a 3.5 Fr [place] 20 Mhz using Manual pullback. Imaging was [...] may require modification of this regimen. Consult [facility] Interventional Cardiology for questions. [...] vascular congestion and cardiomegaly. ?? TTE from [facility] 12/08/21 ? Prior Cardiac Studies: TTE 07/28/2019 [...] prior thyroidectomy in 2012 who presented to [facility] with 1 week progressing breathlessness with patient [...] 03/2021 with Liz Poole PA-C. ?? At [facility], respiratory distress with hypoxia 86% on room [...] PO daily in place of lasix. [place] is new for him and he will have a BMP checked on 12/[address] Cuevas spoke with the patient's and told her that him drinking too much water and diet drinks did not cause his PR. This is what his thought was the [...] to be ~$24/mo; affordable per patient. Post [facility] he was started on Eliquis. He continued [...] appointments: During 8am-5pm Wednesday through Wednesday call [phone] to speak with a nurse in the cardiology clinic All other times call [phone] and ask to speak to the aerodynamics teacher alteration specialist. Return to work: One week Driving: No driving for 48 hours after catheterization. Follow up Appointments: PCP Lovely Vicente MD [phone] to see patient at the end of December for annual check up. Patient to see Dr. Lornezana at 1120 am at December 19 for a post hospital check up. Instructional Design Technologist Dr. De Oliveira to see you in [facility]. Left a message for office to set a date and time. Please call [phone] Nobles to see the patient for a same day cath in 2-3 weeks from now. Office to call with a date and time. For questions please call [phone] Home oxygen therapy: N/A Arrangements for VNA/home care: none Future Appointments and Orders Future Orders Complete By Expires Basic Metabolic Panel (non-fasting) [LAB15 Custom] 12/19/2021 (Approximate) 12/12/2022 Process Instructions: INCLUDES: Calcium, BUN, Creat, GFR, Glucose, Lytes Scheduling Instructions: Comments: Questions: Referral to Cardiac Rehab [[id number] Custom] As directed Process Instructions: If no [...] appointments: During 8am-5pm Wednesday through Wednesday call [phone] to speak with a nurse in the cardiology clinic All other times call [phone] and ask to speak to the aerodynamics teacher alteration specialist. Return to work: One week Driving: No driving for 48 hours after catheterization. Follow up Appointments: PCP Lovely Vicente MD [phone] to see patient at the end of December for annual check up. Patient to see Dr. Lorenzana at 1120 am at December 19 for a post hospital check up. Instructional Design Technologist Dr. De Oliveira to see you in [facility]. Left a message for office to set a date and time. Please call [phone] Nobles to see the patient for a same day cath in 2-3 weeks from now. Office to call with a date and time. For questions please call [phone] Home oxygen therapy: N/A Arrangements for VNA/home care: none Patient InstructionsLaJanneth cano PA - 12/10/2021 4:17 PM EDT documented in this encounter Medications at Time of Discharge Medication Sig Dispensed Refills Start Date End Date clobetasoL (TEMOVATE) APPLY TOPICALLY DAILY 0 02/2022 0.05 % Solution NEEDED FOR RASH clopidogreL (Plavix) Take 1 tablet by mouth [...] mg by mouth 0 Capsule daily. ACCU-CHEK ELIF PLUS 2-3 times daily 100 [...] by mouth 30 tablet 3 11/2412/25/2021 daily. aspirin 81 mg Capsule 81 mg every 24 hours. 0 01/30/2022 documented as of this encounter Progress Notes Janneth Padilla PA - 12/12/2021 7:36 AM EDT Images from the original note were not included. Inpatient Cardiology Progress Note Patient Name: Don Fatima Service: VEGETABLE WASHER / PA Responsible Attending: Ifeanyi Truong MD [...] was given Lasix 80mg IV x1 in manager laboratory. Tolerated procedure well. Home today at 11 [...] pulmonary vascular congestion and cardiomegaly. TTE from [facility] 12/08/21 Prior Cardiac Studies: TTE 07/28/2019 SUMMARY: [...] PCW 27 and occluded SVGs with patent TOHMPSON-LAD. PCI to ostial LCX successful. Recommended outpatient [...] with MD Janneth Neville PA 12/12/2021 Pager [phone] Associated attestation - Ifeanyi Truong MD - [...] ratio for each meal) Desirae Jett APRN [facility] Endocrinology Diabetes Management Pager [phone] 20 minutes of this 35 minute visit [...] Progress Note Patient Name: Don Fatima Service: VEGETABLE WASHER / PA Responsible Attending: Iker Cuevas MD [...] + trop. 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 DM. MARIA VICTORIA.ICM. ??? ASHD [...] was given Lasix 80mg IV x1 in manager laboratory. Tolerated procedure well. Review of Systems: Review [...] TROPONINT 1.13* 0.92* 0.89* Pertinent Radiographic/Diagnostic Results: R/[facility] 12/10/21 Hemodynamics: Right Heart Pressures Resting: Syst [...] pulmonary vascular congestion and cardiomegaly. TTE from [facility] 12/08/21 Prior Cardiac Studies: TTE 07/28/2019 SUMMARY: [...] and answered his questions. Iker Cuevas MD [facility] Total time spent on review of records prior to visit, face to face time with patient during visit, documentation, and coordination of care with other clinicians: 25 minutes. . Iker Cuevas MD - 12/10/2021 12:30 PM EDT Images from the original note were not included. Inpatient Cardiology Progress Note Patient Name: Don Fatima Service: VEGETABLE WASHER / PA Responsible Attending: Iker Cuevas MD Reason for continued hospitalization: NSTEMI- s/p R/LHC- PCW 27, occluded SVGs s/p PCI to ostial LCX ADHF and hypoxia- IV diuresis Active Problems: Active Hospital Problems Diagnosis ??? Admitted with 2 days of sob, hypoxemia, and + trop. 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 DM. MARIA VICTORIA.ICM. ??? ASHD [...] was given Lasix 80mg IV x1 in manager laboratory. Tolerated procedure well. Review of Systems: Review [...] TROPONINT 1.13* 0.92* 0.89* Pertinent Radiographic/Diagnostic Results: R/[facility] 12/10/21 Hemodynamics: Right Heart Pressures Resting: Syst [...] pulmonary vascular congestion and cardiomegaly. TTE from [facility] 12/08/21 Prior Cardiac Studies: TTE 07/28/2019 SUMMARY: [...] Discussed with MD Migdalia Peter PA-C Pager #[phone] 12/10/2021 Cardiology Attending Note I have seen [...] updated and given pictures. Iker Cuevas MD [facility] Total time spent on review of records prior to visit, face to face time with patient during visit, documentation, and coordination of care with other clinicians: 35 minutes. Iker Cuevas MD - 12/09/2021 7:28 AM EDT Images from the original note were not included. Inpatient Cardiology Progress Note Patient Name: Don Fatima Service: VEGETABLE WASHER / PA Responsible Attending: Iker Cuevas MD Reason for continued hospitalization: NSTEMI- awaiting R/LHC ADHF and hypoxia- IV diuresis, R/LHC Active Problems: Active Hospital Problems Diagnosis ??? Admitted with 2 days of sob, hypoxemia, and + trop. 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 DM. MARIA VICTORIA.ICM. ??? ASHD [...] pulmonary vascular congestion and cardiomegaly. TTE from [facility] 12/08/21 Prior Cardiac Studies: TTE 07/28/2019 SUMMARY: [...] Discussed with MD Migdalia Peter PA-C Pager #[phone] 12/09/2021 Cardiology Attending Note I have seen and examined the patient. I agree with the findings above. Developed CHF early this am despite getting more iv lasix last evening. Feeling better now. INR > 2. Lungs still wet at base. Echo at [facility] showed EF 35% with mild mod MR slightly lower than last value here. -vit K 2.5 orally to facilitate correction of INR- this will take 12-24 hours to take effect -furosemide 80 mg iv now -postpone right and left heart cath until tomorrow given INR and ADHF -increase statin to achieve LDL < 70 -CPAP tonight Iker Cuevas MD [facility] Total time spent on review of [...] + trop. 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 DM. MARIA VICTORIA.ICM. ??? 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 with 1 week progressing breathlessness with patient [...] visit 03/2021 with Liz Poole PA-C. At [facility], respiratory distress with hypoxia 86% on room [...] SETUP performed by Manny Mcknight MD at [facility] OR ??? PRO AMPUTATION FOOT, TRANSMETATARSAL Right 08/09/2017 AMPUTATION, TRANSMETATARSAL (WRVU 12.71) performed by Yonathan Smith MD at [facility] OR ??? PRO CABG, ARTERIAL, SINGLE N/A 07/07/2017 @CABG, USING ARTERIAL GRAFT;SINGLE ARTERIAL GRAFT (WRVU 33.75) performed by Yuan Retana MD at [facility] OR ??? PRO CABG, ARTERY-VEIN, TWO N/A 07/07/2017 @CABG, TWO VENOUS GRAFTS & ARTERIAL GRAFT (WRVU 7.93) performed by Yuan Retana MD at [facility] OR ??? PRO COLONOSCOPY, REMV LESN, SNARE 01/16/2014 COLONOSCOPY, POLYPECTOMY, REMOVAL LESION BY SNARE performed by Nohemi Jaimes MD at [facility] ENDOSCOPY ??? PRO DRESSING CHANGE UNDER ANESTHESIA Right 08/11/2017 (MSURG) DRESSING CHANGE (FOR OTHER THAN IVAN) UNDER ANES. (WRVU 0.86) performed by Lamar Smith MD at [facility] OR ??? PRO ENDOSCOPY W/VIDEO-ASST VEIN HARVEST, CABG Right 07/07/2017 ENDOSCOPIC HARVEST VEIN(S) FOR CABG (WRVU 0.31) performed by Yuan Retana MD at [facility] MAIN OR ??? PRO THYROIDECTOMY 03/28/2013 THYROIDECTOMY, TOTAL OR COMPLETE performed by Manny Mcknight MD at [facility] OR Significant Family History: Family History Problem [...] (H) 65 - 199 mg/dL Labs at [facility] 12/08/2021-troponin I 8004 (UN L <60), 12/07- [...] Monitor for ADRs. Trend troponins. Admission EKG. [facility] 12/09; consented. TTE. Telemetry monitoring, daily weights, [...] code #Diet-carb control; n.p.o. after midnight for [facility] #DVT prophy- heparin infusion #GI prophy- PPI Discussed with MD Morgan Peter PA-C APP2 pager [phone] 12/08/2021 Cardiology Attending Note I have seen [...] is type 1 due to graft or [place] coronary stenosis vs acute injury from CHF. 3. PAF: currrently in NSR. Have replaced warfarin with heparin 4. PAD: stable 5. DM: stable 6. CKD: will monitor and minimize contrast. Pt very appreciative of Dr. Yuan Retana's care in 2018. Will let him know patient is here. Iker Cuevas MD [facility] documented in this encounter Miscellaneous Notes Care [...] Type: *No Product type* / Secondary Insurance: Fur and Mask Prescription Coverage: Yes This plan was formulated [...] cardiac cath without complications. PONCHO SullivanC Pager #[phone] 12/10/2021 Initial Assessments - Nick Georges RN [...] COVID test: Lab Results Component Value Date [id number] Not Detected 12/08/2021 Past medical History: Past [...] spouse would be surrogate decision maker per [place] surrogate decision making law. (Only good for 180 days) Any patient receiving care at [facility] must abide by [place] law. The hierarchy for surrogate decision making [...] (i) The agent with financial power of trademark attorney or a conservator appointed in accordance [...] - standard, cane - straight Home Address: [address] [place] [address] [place] [address] Social & Family Supports: All names listed below confirmed with patient as current and correct Extended Emergency Contact Information Primary Emergency Contact: Kisha Fatima Address: [address] [place] [address] [place] [address] [facility] Mobile Relation: Spouse Secondary Emergency Contact: Elba Swenson Address: [place], [place] [address] [place] [address] Mobile Relation: Child Current Care Provided by: [...] Type: *No Product type* / Secondary Insurance: Intrinsity [facility] Prescription Coverage: Yes Preferred Pharmacy: [facility] [address] [address] - [place], [place] - [address] [place] [id number] [place] Status: Patient is a : unable to assess Primary Care Provider: Lovely Vicente MD [phone] Patient/Caregiver Goals of Treatment: Get out of here Potential Needs for Transition of Care: none Agency Referrals: none patient has used [facility] [employer] in the past Transportation: no concerns Transportation Anticipated: family or friend will provide Concerns to be Addressed: patient refuses services, discharge planning Assessment: Patient is admitted to [facility] Service pager [phone] for 76 y.o.??male??with h/o??CAD s/p 3vCABG (THOMPSON-LAD, [...] status on current unit. Nick Georges RN territory development manager, Office of Care Management Pager: [phone] Brief Op Note - Vitaliy Nobles MD - 12/10/2021 8:31 AM EDT Images from the original note were not included. [facility] [place] [address] CORONARY ANGIOGRAM AND PERCUTANEOUS CORONARY INTERVENTION REPORT Patient: Don Fatima : 1945 MR number: [id number] Date of Service: 12/10/2021 Counter Person: Vitaliy Nobles MD Fellow: Rancho Woods MD [...] management and to provide a review of machine long goods helper diabetes care. Diabetes History: Don Fatima has had diabetes for 10 years. He has been on insulin for the last several years andis managed by his PCP. Lives in [place], [place] with his . States that he [...] 5 gm carb ratio for each meal) [facility] diabetes care: Medications - Outpatient treatment regimen recommendations pending based on the hospital course. Monitoring - continue BG tid ac & hs Diet - low fat/low carb diet Exercise - weight-bearing exercise 30 min/day, as tolerated Thank you for allowing us to provide care for your patient Desirae Johnie QUINONES Endocrinology Pager [phone] 70 minutes of this 80 minute visit [...] + trop. 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 DM. MARIA VICTORIA.ICM. ??? ASHD [...] to remain on Med/Surg floor, please page [phone] for any further questions or concerns. LANDON [...] for further details. STEPHANIE Rebolledo 12/08/2021 Pager [phone] documented in this encounter Plan of Treatment Upcoming Encounters Date Type Specialty Care Team Description 02/19/2022 Laboratory Appointment Lab 02/19/2022 Office Visit Cardiology Liz Poole PA [facility] er Cardiology Dept [place], [place] [address] (Wo rk) 03/26/2022 Office Visit Cardiology Vitaliy Nobles MD [facility] CARDIOLOGY [place], [place] [address] (Wo rk) Scheduled Referrals Name [...] POC Glucose 215 (H) 65 - 199 [facility] mg/dL [facility] Comment: Supplemental ranges: <140 mg/dL before meals <180 mg/dL all other times of the day Specimen Anatomical Collection Method Collection Time Receive d Time (Source) Location / / Volume Laterality Blood 12/12/2021 7:42 AM 7:42 EDT AM EDT Ifeanyi Truong MD POINT OF CARE TEST ORDERABLE S Performing Organization Address City/State/ZIP [place] [address] (ABNORMAL) Differential, Automated (12/12/2021 4:51 AM EDT) athologist Signature Neutrophils % 75.4 % [facility] Neutr Abs (ANC) 5.95 1.70 - [facility] 6.10 [facility] x10(3)/[facility] LABORATORY Lymphocytes % 12.2 % [facility] Lymphocytes Abs 1.0 0.9 - 3.2 [facility] x10(3)/[facility] LABORATORY Monocytes % 9.5 % [facility] Monocyte Abs 0.8 0.3 - 0.9 [facility] x10(3)/[facility] LABORATORY Eosinophils % 1.8 % [facility] Eosinophils Abs 0.1 0.0 - 0.4 [facility] x10(3)/[facility] LABORATORY Basophils % 0.5 % [facility] Basophils Abs 0.0 0.0 - 0.1 [facility] x10(3)/[facility] LABORATORY Immature Gran % 0.60 % [facility] Comment: Immature granulocytes(IG's)percentage an d absolute count will include metamyelocytes, myelocytes, and promyelo cytes. Blood smears from CBCs yielding IG's will be scanned manually for lora espitia. If this scan disagrees with the automated IG or if promyelocytes are not ed, a manual differential will be performed. Melisa Gran Abs 0.05 (H) 0.00 - 0.04 x10(3)/[facility] LABORATORY Specimen Anatomical Collection Method Collection Time Receive d Time (Source) Location / / Volume Laterality Blood 12/12/2021 4:51 AM 5:06 EDT AM EDT Resulting Agency Comment Spec In Lab Bijan Sun MD HEMATOLOGY ORDERABLES Performing Organization Address City/State/ZIP Code Phon e Number [place] [id number] (ABNORMAL) Hemogram (12/12/2021 4:51 AM EDT) Analysis Performed At Patho logist Time Signature WBC 7.9 4.0 - 9.5 [facility] x10(3)/[facility] LABORATORY RBC 4.19 (L) 4.58 - [facility] 5.54 [facility] x10(6)/[facility] LABORATORY Hemoglobin 12.1 (L) 13.7 - [facility] 16.[facility] g/dL [facility] Hematocrit 36.7 (L) 40.5 - [facility] 48.5 % [facility] MCV 87.6 82.9 - [facility] 93.1 [facility] LABORATORY MCH 28.9 27.5 - [facility] SU 32.1 pg [facility] MCHC 33.0 32.0 - [facility] 35.7 g/dL [facility] Platelets 231 145 - 357 [facility] x10(3)/[facility] LABORATORY RDWSD 47.2 (H) 36.0 - [facility] 45.0 [facility] LABORATORY RDWCV 14.6 (H) 11.4 - [facility] SU 13.8 % [facility] MPV 9.5 7.6 - 12.9 [facility] LABORATORY nRBC % Auto 0.0 % [facility] nRBC Abs Auto 0.000 0.000 - [facility] 0.000 [facility] x10(3)/[facility] LABORATORY Specimen Anatomical Collection Method Collection Time Receive d Time (Source) Location / / Volume Laterality Blood 12/12/2021 4:51 AM 2 5:06 EDT AM EDT Resulting Agency Comment Spec In Lab Bijan Sun MD HEMATOLOGY ORDERABLES Performing Organization Address City/[facility] [place] [address] (ABNORMAL) Prothrombin Time (12/12/2021 4:51 AM EDT) P athologist Signature PT 14.9 (H) 9.4 - 12.5 [facility] LABORATORY INR 1.3 [facility] Comment: An INR <2.0 indicates [...] Cuevas MD HEMATOLOGY ORDERABLES Performing Organization Address City/[facility] [place] [address] (ABNORMAL) BMP w/fasting Glucose (12/12/2021 4:51 AM EDT) P athologist Signature Glucose 152 (H) 65 - 99 [facility] Fasting mg/dL [facility] Comment: ?Fasting* Glucose Interpretive C [...] of Diabetes Mellitus, Position Statement from the [place] [employer]. ??Diabete s Care, Volume 33, Supplement 1, Jul 2009 BUN 52 (H) 10 - 20 mg/dL [facility] Creatinine 1.72 (H) 0.80 - 1.50 mg/dL [facility] Sodium 143 135 - 145 mmol/L [facility] Potassium 3.9 3.5 - 5.0 mmol/L [facility] Comment: Please note: ??Patients with WBC >100,00 0 may have falsely elevated Potassium levels. ??For accurate Potassium quantif ication in these patients send serum separator tube (gold top) for subsequent determinations. ??Contact the Clinical Chemistry Laboratory if there are any qu estions. Chloride 105 98 - 107 mmol/L [facility] CO2 21 (L) 22 - 31 mmol/L [facility] Anion Gap 17 (H) 5 - 15 mmol/L [facility] Calcium 8.9 8.5 - 10.5 mg/dL [facility] Estimated GFR 38 (L) >=60 mL/min/1.73 m?? [facility] Comment: This patient? s estimated [...] Address City/State/ZIP Code Phon e Number [address] Magnesium (12/12/2021 4:51 AM EDT) athologist Signature Magnesium 1.02 0.69 - 1.07 [facility] mmol/L [facility] Specimen Anatomical Collection Method Collection Time Receive d Time (Source) Location / / Volume Laterality Blood 12/12/2021 4:51 AM 2 5:06 EDT AM EDT Resulting Agency Comment Spec In Lab Iker Cuevas MD CHEMISTRY ORDERABLES Performing Organization Address City/[facility]/ZIP Code Phon e Number [address] POCT Glucose (12/12/2021 3:43 AM EDT) athologist Signature POC Glucose 138 65 - 199 [facility] mg/dL [facility] Comment: Supplemental ranges: <140 mg/dL before meals <180 mg/dL all other times of the day Specimen Anatomical Collection Method Collection Time Receive d Time (Source) Location / / Volume Laterality Blood 12/12/2021 3:43 AM 2 3:43 EDT AM EDT Iker Cuevas MD POINT OF CARE TEST ORDERABLE S Performing Organization Address City/State/ZIP [place] [address] POCT Glucose (12/11/2021 11:44 PM EDT) athologist Signature POC Glucose 124 65 - 199 [facility] mg/dL [facility] Comment: Supplemental ranges: <140 mg/dL before meals <180 mg/dL all other times of the day Specimen Anatomical Collection Method Collection Time Receive d Time (Source) Location / / Volume Laterality Blood 12/11/2021 11:44 12/11/2021 PM EDT 11:44 PM EDT Iker Cuevas MD POINT OF CARE TEST ORDERABLE S Performing Organization Address City/State/ZIP [place] [address] (ABNORMAL) POCT Glucose (12/11/2021 8:12 PM EDT) athologist Signature POC Glucose 200 (H) 65 - 199 [place] mg/dL [facility] Comment: Supplemental ranges: <140 mg/dL before meals <180 mg/dL all other times of the day Specimen Anatomical Collection Method Collection Time Receive d Time (Source) Location / / Volume Laterality Blood 12/11/2021 8:12 PM 2 8:12 EDT PM EDT Iker Cuevas MD POINT OF CARE TEST ORDERABLE S Performing Organization Address City/[facility]/ZIP [place] [address] (ABNORMAL) POCT Glucose (12/11/2021 6:50 PM EDT) athologist Signature POC Glucose 245 (H) 65 - 199 [place] mg/dL [facility] Comment: Supplemental ranges: <140 mg/dL before meals <180 mg/dL all other times of the day Specimen Anatomical Collection Method Collection Time Receive d Time (Source) Location / / Volume Laterality Blood 12/11/2021 6:50 PM 2 6:50 EDT PM EDT Iker Cuevas MD POINT OF CARE TEST ORDERABLE S Performing Organization Address City/State/ZIP [place] [address] (ABNORMAL) POCT Glucose (12/11/2021 4:00 PM EDT) athologist Signature POC Glucose 383 (H) 65 - 199 [place] mg/dL [facility] Comment: Supplemental ranges: <140 mg/dL before meals <180 mg/dL all other times of the day Specimen Anatomical Collection Method Collection Time Receive d Time (Source) Location / / Volume Laterality Blood 12/11/2021 4:00 PM 4:00 EDT PM EDT Iker Cuevas MD POINT OF CARE TEST ORDERABLE S Performing Organization Address City/State/ZIP Code Phon e Number [address] (ABNORMAL) POCT Glucose (12/11/2021 12:01 PM EDT) P athologist Signature POC Glucose 342 (H) 65 - 199 [place] mg/dL [facility] Comment: Supplemental ranges: <140 mg/dL before meals <180 mg/dL all other times of the day Specimen Anatomical Collection Method Collection Time Receive d Time (Source) Location / / Volume Laterality Blood 12/11/2021 12:01 12/11/2021 PM EDT 12:01 PM EDT Iker Cuevas MD POINT OF CARE TEST ORDERABLE S Performing Organization Address City/State/ZIP [place] [address] COVID-19 PCR (12/11/2021 10:13 AM EDT) Patholo gist Method Time Signature SARS-CoV-2 Not Detected Not Detected [place] RNA [facility] Comment: This result should [...] diagnosis of COVID-19 is performed using the [employer] Alinity m RONNA S-CoV-2 Assay as authorized by the FDA Emergency Use Authorization (EUA). This EUA assay is intended for In-vitro Diagnostic (IVD) use with respiratory sp ecimens such as nasopharyngeal swabs collected from individuals during the ac lower elwha phase of infection. This assay is performed based on the instructions for use provided by [employer] and additional guidance provided by CDC and FDA. Testing is performed in the Clinical Genomics and Advanced Technolog y Laboratory within the Department of Pathology and Laboratory Medicine at [facility], certified under the Clinical Laboratory Improvement [...] clinical management guidance information are available at [facility] CDC Coronavirus Disease 2019 (COVID-19) webpage under Information fo r Healthcare Professionals (https://www.cdc.gov/coronavirus/2019-nc ov/hcp/index.html) Additional information about this and ot her EUA tests can be found in provider and patient fact sheets at the following FDA website: https://www.fda.gov/medical-devices/fuaotsugmmb-ooffhgw-3546-uhyvt-00-qhvssndbz- rjm-uniujrjkcihuqz-unmnpyl-devices/awogx-teqixbtldnv-utwm SARS-Cov-2 RNA Source [employer] Swab [facility] LABORATORY Specimen (Source) Anatomical Collection Method Collection Time Re ceived Time Location / / Volume Laterality Nasopharyngeal Swab 12/11/2021 10:13 0503/2022 AM EDT 11:16 AM EDT Comment: Symptoms->Surveillance Resulting Agency Comment Spec In Lab Iker Cuevas MD MICROBIOLOGY - GENERAL ORDER [place]BS[place] Performing Organization Address City/[facility]/ZIP [place] [address] POCT Glucose (12/11/2021 7:34 AM EDT) P athologist Signature POC Glucose 198 65 - 199 [facility]dL [facility] Comment: Supplemental ranges: <140 mg/dL before meals <180 mg/dL all other times of the day Specimen Anatomical Collection Method Collection Time Receive d Time (Source) Location / / Volume Laterality Blood 12/11/2021 7:34 AM 2 7:34 EDT AM EDT Iker Cuevas MD POINT OF CARE TEST ORDERABLE S Performing Organization Address City/[facility]/ZIP [place] [address] (ABNORMAL) POCT Glucose (12/11/2021 5:07 AM EDT) P athologist Signature POC Glucose 208 (H) 65 - 199 [facility] Comment: Supplemental ranges: <140 mg/dL before meals <180 mg/dL all other times of the day Specimen Anatomical Collection Method Collection Time Receive d Time (Source) Location / / Volume Laterality Blood 12/11/2021 5:07 AM 2 5:07 EDT AM EDT Iker Cuevas MD POINT OF CARE TEST ORDERABLE S Performing Organization Address City/[facility]/ZIP [place] [address] (ABNORMAL) Differential, Automated (12/11/2021 4:28 AM EDT) [facility] Method Time Signature Neutrophils % 79.6 % [facility] Neutr Abs (ANC) 7.01 (H) 1.70 - [facility] 6.10 [facility] x10(3)/[facility] L LABORATORY Lymphocytes % 9.1 % [facility] Lymphocytes Abs 0.8 (L) 0.9 - 3.2 [facility] x10(3)/[facility] LABORATORY Monocytes % 9.2 % [facility] Monocyte Abs 0.8 0.3 - 0.9 [facility] x10(3)/[facility] LABORATORY Eosinophils % 1.3 % [facility] Eosinophils Abs 0.1 0.0 - 0.4 [facility] x10(3)/[facility] LABORATORY Basophils % 0.5 % [facility] Basophils Abs 0.0 0.0 - 0.1 [facility] x10(3)/[facility] LABORATORY Immature Gran % 0.30 % [facility] Comment: Immature granulocytes(IG's)percentage an d absolute count will include metamyelocytes, myelocytes, and promyelo cytes. Blood smears from CBCs yielding IG's will be scanned manually for concor dance. If this scan disagrees with the automated IG or if promyelocytes are not ed, a manual differential will be performed. Melisa Gran Abs 0.03 0.00 - 0.04 x10(3)/[facility] MAR Y [facility] LABORATORY Specimen Anatomical Collection Method Collection Time Receive d Time (Source) Location / / Volume Laterality Blood 12/11/2021 4:28 AM 4:37 EDT AM EDT Resulting Agency Comment Spec In Lab Bijan Sun MD HEMATOLOGY ORDERABLES Performing Organization Address City/State/ZIP [place] [address] (ABNORMAL) Hemogram (12/11/2021 4:28 AM EDT) Analysis Performed At Patho logist Time Signature WBC 8.8 4.0 - 9.5 [facility] x10(3)/[facility] LABORATORY RBC 4.15 (L) 4.58 - [facility] 5.54 [facility] x10(6)/[facility] LABORATORY Hemoglobin 11.9 (L) 13.7 - [facility] 16.5 g/dL [facility] Hematocrit 36.9 (L) 40.5 - [facility] 48.5 % [facility] MCV 88.9 82.9 - [facility] 93.1 [facility] LABORATORY MCH 28.7 27.5 - [place] 32.1 pg [facility] MCHC 32.2 32.0 - [place] 35.7 g/dL [facility] Platelets 211 145 - 357 [facility] x10(3)/[facility] LABORATORY RDWSD 48.3 (H) 36.0 - [facility] SU 45.0 [facility] LABORATORY RDWCV 14.8 (H) 11.4 - [facility] SU 13.8 % [facility] LABORATORY MPV 9.6 7.6 - 12.9 [facility] LABORATORY nRBC % Auto 0.0 % [facility] nRBC Abs Auto 0.000 0.000 - [facility] 0.000 [facility] x10(3)/[facility] LABORATORY Specimen Anatomical Collection Method Collection Time Receive d Time (Source) Location / / Volume Laterality Blood 12/11/2021 4:28 AM 2 4:37 EDT AM EDT Resulting Agency Comment Spec In Lab Bijan Sun MD HEMATOLOGY ORDERABLES Performing Organization Address City/State/ZIP [place] [address] (ABNORMAL) Prothrombin Time (12/11/2021 4:28 AM EDT) P athologist Signature PT 17.7 (H) 9.4 - 12.5 [facility] sec [facility] INR 1.6 [facility] Comment: An INR <2.0 indicates [...] Organization Address City/State/ZIP [place] [address] (ABNORMAL) BMP w/fasting Glucose (12/11/2021 4:28 AM EDT) P athologist Signature Glucose 207 (H) 65 - 99 [facility] Fasting mg/dL [facility] Comment: ?Fasting* Glucose Interpretive C [...] of Diabetes Mellitus, Position Statement from the [place] [employer]. ??Diabete s Care, Volume 33, Supplement 1, Jul 2009 BUN 49 (H) 10 - 20 mg/dL [facility]AT[facility] Creatinine 1.43 0.80 - 1.50 mg/dL [facility] Sodium 142 135 - 145 mmol/L [facility]OR[facility]ORY Potassium 4.0 3.5 - 5.0 mmol/L [facility] Comment: Please note: ??Patients with WBC >100,00 0 may have falsely elevated Potassium levels. ??For accurate Potassium quantif ication in these patients send serum separator tube (gold top) for subsequent determinations. ??Contact the Clinical Chemistry Laboratory if there are any qu estions. Chloride 104 98 - 107 mmol/L [facility] CO2 23 22 - 31 mmol/L [facility] Anion Gap 15 5 - 15 mmol/L [facility] Calcium 8.6 8.5 - 10.5 mg/dL [facility] Estimated GFR 48 (L) >=60 mL/min/1.73 m?? [facility] Comment: This patient? s estimated [...] Address City/State/ZIP Code Phon e Number [address] Magnesium (12/11/2021 4:28 AM EDT) P athologist Signature Magnesium 1.04 0.69 - 1.07 [facility] mmol/L [facility] Specimen Anatomical Collection Method Collection Time Receive d Time (Source) Location / / Volume Laterality Blood 12/11/2021 4:28 AM 2 4:37 EDT AM EDT Resulting Agency Comment Spec In Lab Iker Cuevas MD CHEMISTRY ORDERABLES Performing Organization Address City/State/ZIP Code Phon e Number [address] POCT Glucose (12/11/2021 3:58 AM EDT) P athologist Signature POC Glucose 189 65 - 199 [facility] mg/dL [facility] Comment: Supplemental ranges: <140 mg/dL before meals <180 mg/dL all other times of the day Specimen Anatomical Collection Method Collection Time Receive d Time (Source) Location / / Volume Laterality Blood 12/11/2021 3:58 AM 2 3:58 EDT AM EDT Iker Cuevas MD POINT OF CARE TEST ORDERABLE S Performing Organization Address City/State/ZIP [place] [address] (ABNORMAL) POCT Glucose (12/10/2021 11:45 PM EDT) athologist Signature POC Glucose 205 (H) 65 - 199 [facility] SU mg/dL [facility] Comment: Supplemental ranges: <140 mg/dL before meals <180 mg/dL all other times of the day Specimen Anatomical Collection Method Collection Time Receive d Time (Source) Location / / Volume Laterality Blood 12/10/2021 11:45 12/10/2021 PM EDT 11:45 PM EDT Iker Cuevas MD POINT OF CARE TEST ORDERABLE S Performing Organization Address City/[facility]/ZIP [place] [address] (ABNORMAL) POCT Glucose (12/10/2021 7:54 PM EDT) athologist Signature POC Glucose 225 (H) 65 - 199 [facility] mg/dL [facility] Comment: Supplemental ranges: <140 mg/dL before meals <180 mg/dL all other times of the day Specimen Anatomical Collection Method Collection Time Receive d Time (Source) Location / / Volume Laterality Blood 12/10/2021 7:54 PM 2 7:54 EDT PM EDT Iker Cuevas MD POINT OF CARE TEST ORDERABLE S Performing Organization Address City/[facility]/ZIP [place] [address] Potassium (12/10/2021 7:46 PM EDT) athologist Signature Potassium 4.2 3.5 - 5.0 [facility] mmol/L [facility] Comment: Please note: ??Patients with [...] Organization Address City/State/ZIP [place] [address] (ABNORMAL) Basic Metabolic Panel (non-fasting) (12/10/2021 6:12 PM EDT) athologist Signature Glucose Lvl 246 (H) 65 - 199 [facility] mg/dL [facility] Comment: Diabetes: >=200 mg/dL plus symp toms BUN 50 (H) 10 - 20 mg/dL [facility] Creatinine 1.39 0.80 - 1.50 mg/dL [facility] Sodium 138 135 - 145 mmol/L [facility] Potassium Not Perf 3.5 - 5.0 [facility] LABORATORY Comment: Unable to quantitate due to [...] estions. Chloride 100 98 - 107 mmol/L [facility] CO2 22 22 - 31 mmol/L [facility] Anion Gap 16 (H) 5 - 15 mmol/L [facility] Calcium 8.3 (L) 8.5 - 10.5 mg/dL [facility] Estimated GFR 49 (L) >=60 mL/min/1.73 m?? [facility] Comment: This patient? s estimated [...] Organization Address City/State/ZIP [place] [address] POCT Glucose (12/10/2021 4:59 PM EDT) athologist Signature POC Glucose 158 65 - 199 [facility] mg/dL [facility] Comment: Supplemental ranges: <140 mg/dL before meals <180 mg/dL all other times of the day Specimen Anatomical Collection Method Collection Time Receive d Time (Source) Location / / Volume Laterality Blood 12/10/2021 4:59 PM 2 4:59 EDT PM EDT Iker Cuevas MD POINT OF CARE TEST ORDERABLE S Performing Organization Address City/State/ZIP [place] [address] (ABNORMAL) POCT Glucose (12/10/2021 12:43 PM EDT) P athologist Signature POC Glucose 241 (H) 65 - 199 [place] mg/dL [facility] Comment: Supplemental ranges: <140 mg/dL before meals <180 mg/dL all other times of the day Specimen Anatomical Collection Method Collection Time Receive d Time (Source) Location / / Volume Laterality Blood 12/10/2021 12:43 12/10/2021 PM EDT 12:43 PM EDT Iker Cuevas MD POINT OF CARE TEST ORDERABLE S Performing Organization Address City/State/ZIP Code Phon e Number [place] [id number] EKG 12 Lead (12/10/2021 11:17 AM EDT) Component Value Ref Range Test Analysis Performed Pathologis t Method Time At Signature Ventricular rate 62 BPM MUSE SYSTEM Atrial Rate 62 BPM MUSE SYSTEM P-R Interval 142 ms MUSE SYSTEM QRS Duration 100 ms MUSE SYSTEM Q-T Interval 434 ms MUSE SYSTEM QTC Calculated 440 ms MUSE SYSTEM (Bezet) Calculated P [place] 34 degrees MUSE SYSTEM Calculated R [place] -39 degrees MUSE SYSTEM Calculated T [place] 92 degrees MUSE SYSTEM INTERPRETATION Normal sinus [...] SYSTEM - 12/10/2021 12:04 PM E DT ?[facility] ? Cardiac Cathete rization/Intervention Report ? Patient Name: Kushal Don Mccollum. ? Procedure Date: 12/10/2021 ? A #: [id number] ? Primary Physician: Nobles, Vitaliy P ? Case #: [id number] ? File Name: [id number] ? Catheterization Order Number: [id number] ? [facility] ? Final Report [place], [place] ? Patient Name: ? Don E. Stewa rt ? ID#: ?[id number] ? : ?1945 ? Procedure Date: ? December 10, 2021 ? Case #: ? [id number] ? Room: ? 1 ? Case Physician: [...] procedure was Urgent. The indication for ?the manager laboratory visit is ACS great er than 24 [...] ?3.75 guiding catheter and a 3.5 Fr [place] [facility] [place] 20 Mhz using Manual ?pullback. ??Imaging was [...] ?3.75 guiding catheter and a 3.5 Fr [place] [place] 20 Mhz using Manual ?pullback. ??Imaging was [...] require ?modification of this regimen. C onsult [facility] Interventional Cardiology for ?questions. ?The 1 year bleeding risk as nusrat culated by the PRECISE DAPT score is High ?risk. ?High Bleeding Risk - Anticoagul ation and DAPT: ?- ??Assess ischemic and bleedin g risks using validated risk predictors ?(e.g. CHADS2-VASC, HAS-BLED, HI ECISE DAPT, DAPT Score) ?- ??Keep anticoagulant [...] Procedure Note Vitaliy Nobles MD - 01/14/2022 [facility] Cardiac Catheterization/Intervention Re port Patient Name: Don Fatima Procedure Date: 12/10/2021 A #: [id number] Primary Physician: Vitaliy Nobles Case #: [id number] File Name: [id number] Catheterization Order Number: [id number] [facility] Professor Of Nursing [facility] Final Report [place], [place] Patient Name: Don Fatima ID#: [...] e was Urgent. The indication for the manager laboratory visit is ACS greater than 24 hrs [...] and a 3.5 Fr [place] [facility] [place] 20 Mhz using Manual pullback. Imaging was [...] and a 3.5 Fr [place] [facility] [place] 20 Mhz using Manual pullback. Imaging was [...] require modification of this regimen. Consult D [facility] Interventional Cardiology for questions. The 1 year [...] - 199 [place] mg/dL [facility] Comment: Supplemental ranges: <140 mg/dL before meals <180 mg/dL all other times of the day Specimen Anatomical Collection Method Collection Time Receive d Time (Source) Location / / Volume Laterality Blood 12/10/2021 10:30 12/10/2021 AM EDT 10:30 AM EDT Iker Cuevas MD POINT OF CARE TEST ORDERABLE S Performing Organization Address City/[facility]/ZIP [place] [address] (ABNORMAL) POCT Glucose (12/10/2021 9:48 AM EDT) athologist Signature POC Glucose 279 (H) 65 - 199 [facility] mg/dL [facility] Comment: Supplemental ranges: <140 mg/dL before meals <180 mg/dL all other times of the day Specimen Anatomical Collection Method Collection Time Receive d Time (Source) Location / / Volume Laterality Blood 12/10/2021 9:48 AM 9:48 EDT AM EDT Iker Cuevas MD POINT OF CARE TEST ORDERABLE S Performing Organization Address City/[facility]/ZIP [place] [address] (ABNORMAL) POCT Glucose (12/10/2021 9:07 AM EDT) athologist Signature POC Glucose 268 (H) 65 - 199 [place] mg/dL [facility] Comment: Supplemental ranges: <140 mg/dL before meals <180 mg/dL all other times of the day Specimen Anatomical Collection Method Collection Time Receive d Time (Source) Location / / Volume Laterality Blood 12/10/2021 9:07 AM 2 9:07 EDT AM EDT kIer Cuevas MD POINT OF CARE TEST ORDERABLE S Performing Organization Address City/State/ZIP [place] [address] (ABNORMAL) Point of Care Blood Gas Historical (12/10/2021 9:04 AM EDT) Patholo gist Method Time Signature POC pH 7.40 7.35 - [facility] 7.45 [facility] POC PCO2 40 35 - 45 [facility] mmHg [facility] POC PO2 63 (L) 85 - 104 [facility] LABORATORY POC Base Excess 0.0 -3.0 - 3.0 [facility] K mmol/L [facility] POC HCO3 24.8 20.0 - [facility] 26.0 [facility] POC Sodium 143 135 - 145 [facility] mmol/L [facility] POC Potassium 3.7 3.5 - 5.0 [facility] mmol/L [facility] POC Ionized Ca 1.07 (L) 1.15 - [facility] 1.33 [facility] POC Hematocrit 30.0 (L) 40.0 - [facility] 51.0 % [facility] POC Calc Hgb 10.2 (L) 13.7 - [facility] 17.5 g/dL [facility] Comment: The calculation of hemoglobin f rom hematocrit assumes a normal MCHC. POC Bgas Loc CC LAB [facility]OR[facility]ORY Specimen Anatomical Collection Method Collection Time Receive d Time (Source) Location / / Volume Laterality Blood 12/10/2021 9:04 AM 2 EDT 12:00 PM EDT Ifeanyi Truong MD CHEMISTRY ORDERABLES Performing Organization Address City/State/ZIP Code Phon e Number [place] [phone] (ABNORMAL) POCT Glucose (12/10/2021 7:19 AM EDT) P athologist Signature POC Glucose 274 (H) 65 - 199 [facility] mg/dL [facility] Comment: Supplemental ranges: <140 mg/dL before meals <180 mg/dL all other times of the day Specimen Anatomical Collection Method Collection Time Receive d Time (Source) Location / / Volume Laterality Blood 12/10/2021 7:19 AM 2 7:19 EDT AM EDT Iker Cuevas MD POINT OF CARE TEST ORDERABLE S Performing Organization Address City/[facility]/ZIP Code Phon e Number [address] Heparin (unfractionated) Level (12/10/2021 4:25 AM EDT) P athologist Signature Heparin UFH 0.69 IU/mL [facility] LABORATORY Comment: Heparin (anti-Xa) levels should [...] Cuevas MD HEMATOLOGY ORDERABLES Performing Organization Address City/[facility]/ZIP Code Phon e Number [address] (ABNORMAL) Differential, Automated (12/10/2021 4:25 AM EDT) Patholo gist Method Time Signature Neutrophils % 79.8 % [facility] Neutr Abs (ANC) 7.47 (H) 1.70 - [facility] 6.10 [facility] x10(3)/[facility] L LABORATORY Lymphocytes % 10.6 % [facility] Lymphocytes Abs 1.0 0.9 - 3.2 [facility] x10(3)/[facility] LABORATORY Monocytes % 8.4 % [facility] Monocyte Abs 0.8 0.3 - 0.9 [facility] x10(3)/[facility] LABORATORY Eosinophils % 0.6 % [facility] Eosinophils Abs 0.1 0.0 - 0.4 [facility] x10(3)/[facility] LABORATORY Basophils % 0.2 % [facility] Basophils Abs 0.0 0.0 - 0.1 [facility] x10(3)/[facility] LABORATORY Immature Gran % 0.40 % [facility] Comment: Immature granulocytes(IG's)percentage an d absolute count will include metamyelocytes, myelocytes, and promyelo cytes. Blood smears from CBCs yielding IG's will be scanned manually for concor dance. If this scan disagrees with the automated IG or if promyelocytes are not ed, a manual differential will be performed. Melisa Gran Abs 0.04 0.00 - 0.04 x10(3)/[facility] Y [facility] LABORATORY Specimen Anatomical Collection Method Collection Time Receive d Time (Source) Location / / Volume Laterality Blood 12/10/2021 4:25 AM 2 4:34 EDT AM EDT Resulting Agency Comment Spec In Lab Morgan BROWN HEMATOLOGY ORDERABLES Performing Organization Address City/State/ZIP [place] [address] (ABNORMAL) Hemogram (12/10/2021 4:25 AM EDT) Analysis Performed At Patho logist Time Signature WBC 9.4 4.0 - 9.5 [facility] x10(3)/[facility] LABORATORY RBC 3.81 (L) 4.58 - [facility] 5.54 [facility] x10(6)/[facility] LABORATORY Hemoglobin 11.1 (L) 13.7 - [facility] 16.5 g/dL [facility] LABORATORY Hematocrit 34.0 (L) 40.5 - [place] [facility] 48.5 % [facility] LABORATORY MCV 89.2 82.9 - [facility] LABORATORY MCH 29.1 27.5 - [place] 32.1 pg [facility] LABORATORY MCHC 32.6 32.0 - [facility] 35.7 g/dL [facility] LABORATORY Platelets 183 145 - 357 [facility] x10(3)/[facility] LABORATORY RDWSD 49.9 (H) 36.0 - [place] 45.0 [facility] LABORATORY RDWCV 15.2 (H) 11.4 - [facility] 13.8 % [facility] LABORATORY MPV 9.8 7.6 - 12.9 [facility] LABORATORY nRBC % Auto 0.0 % [facility] LABORATORY nRBC Abs Auto 0.000 0.000 - [facility] 0.000 [facility] x10(3)/[facility] LABORATORY Specimen Anatomical Collection Method Collection Time Receive d Time (Source) Location / / Volume Laterality Blood 12/10/2021 4:25 AM 2 4:34 EDT AM EDT Resulting Agency Comment Spec In Lab Morgan BROWN HEMATOLOGY ORDERABLES Performing Organization Address City/State/ZIP Code Phon e Number [place] [id number] HOSP[address] LAB[address]ORY [address] (ABNORMAL) Prothrombin Time (12/10/2021 4:25 AM EDT) P athologist Signature PT 20.0 (H) 9.4 - 12.5 [facility] LABORATORY INR 1.7 [facility] LABORATORY Comment: An INR <2.0 indicates [...] Organization Address City/State/ZIP [place] [address] (ABNORMAL) BMP w/fasting Glucose (12/10/2021 4:25 AM EDT) athologist Signature Glucose 210 (H) 65 - 99 [facility] Fasting mg/dL [facility] LABORATORY Comment: ?Fasting* Glucose Interpretive C [...] of Diabetes Mellitus, Position Statement from the [place] [employer]. ??Diabete s Care, Volume 33, Supplement 1, Jul 2009 BUN 54 (H) 10 - 20 mg/dL [facility] LABORATORY Creatinine 1.52 (H) 0.80 - 1.50 mg/dL [facility] LABORATORY Sodium 140 135 - 145 mmol/L [facility] LABORATORY Potassium 3.9 3.5 - 5.0 mmol/L [facility] LABORATORY Comment: Please note: ??Patients with WBC >100,00 0 may have falsely elevated Potassium levels. ??For accurate Potassium quantif ication in these patients send serum separator tube (gold top) for subsequent determinations. ??Contact the Clinical Chemistry Laboratory if there are any qu estions. Chloride 104 98 - 107 mmol/L [facility] LABORATORY CO2 23 22 - 31 mmol/L [facility] LABOR[facility] Anion Gap 13 5 - 15 mmol/L [facility] LABORATORY Calcium 8.0 (L) 8.5 - 10.5 mg/dL [facility] LABORATORY Estimated GFR 44 (L) >=60 mL/min/1.73 m?? [facility] LABOR[facility] Comment: This patient? s estimated [...] Address City/State/ZIP Code Phon e Number [address] Magnesium (12/10/2021 4:25 AM EDT) P athologist Signature Magnesium 0.95 0.69 - 1.07 [facility] mmol/L [facility] LABORATORY Specimen Anatomical Collection Method Collection Time Receive d Time (Source) Location / / Volume Laterality Blood 12/10/2021 4:25 AM 2 4:34 EDT AM EDT Resulting Agency Comment Spec In Lab Iker Cuevas MD CHEMISTRY ORDERABLES Performing Organization Address City/State/ZIP Code Phon e Number [address] POCT Glucose (12/10/2021 1:58 AM EDT) P athologist Signature POC Glucose 164 65 - 199 [facility] mg/dL [facility] LABORATORY Comment: Supplemental ranges: <140 mg/dL before meals <180 mg/dL all other times of the day Specimen Anatomical Collection Method Collection Time Receive d Time (Source) Location / / Volume Laterality Blood 12/10/2021 1:58 AM 2 1:58 EDT AM EDT Iker Cuevas MD POINT OF CARE TEST ORDERABLE S Performing Organization Address City/[facility]/ZIP [place] [address] (ABNORMAL) POCT Glucose (12/09/2021 9:02 PM EDT) athologist Signature POC Glucose 313 (H) 65 - 199 [facility] mg/dL [facility] LABORATORY Comment: Supplemental ranges: <140 mg/dL before meals <180 mg/dL all other times of the day Specimen Anatomical Collection Method Collection Time Receive d Time (Source) Location / / Volume Laterality Blood 12/09/2021 9:02 PM 2 9:02 EDT PM EDT Iker Cuevas MD POINT OF CARE TEST ORDERABLE S Performing Organization Address City/[facility]/ZIP Code Phon e Number [place] [phone]OSPITAL LAB[address] Heparin (unfractionated) Level (12/09/2021 7:30 PM EDT) athologist Signature Heparin UFH 0.48 IU/mL [facility] LABORATORY Comment: Heparin (anti-Xa) levels should [...] Resulting Agency Comment Spec In Lab Iker Cueavs MD HEMATOLOGY ORDERABLES Performing Organization Address City/State/ZIP [place] [address] (ABNORMAL) Basic Metabolic Panel (non-fasting) (12/09/2021 7:30 PM EDT) P athologist Signature Glucose Lvl 372 (H) 65 - 199 [facility] mg/dL [facility] LABORATORY Comment: Diabetes: >=200 mg/dL plus symp toms BUN 56 (H) 10 - 20 mg/dL [facility] LABORATORY Creatinine 1.75 (H) 0.80 - 1.50 mg/dL [facility] LABORATORY Sodium 138 135 - 145 mmol/L [facility] LABORATORY Potassium 4.2 3.5 - 5.0 mmol/L [facility] LABORATORY Comment: Please note: ??Patients with WBC >100,00 0 may have falsely elevated Potassium levels. ??For accurate Potassium quantif ication in these patients send serum separator tube (gold top) for subsequent determinations. ??Contact the Clinical Chemistry Laboratory if there are any qu estions. Chloride 102 98 - 107 mmol/L [facility]OR[facility] CO2 22 22 - 31 mmol/L [facility]OR[facility] Anion Gap 14 5 - 15 mmol/L [facility] LABORATORY Calcium 8.1 (L) 8.5 - 10.5 mg/dL [facility] LABORATORY Estimated GFR 37 (L) >=60 mL/min/1.73 m?? [facility] Comment: This patient? s estimated [...] Organization Address City/State/ZIP [place] [address] (ABNORMAL) POCT Glucose (12/09/2021 6:34 PM EDT) athologist Signature POC Glucose 408 (H) 65 - 199 [facility] mg/dL [facility] LAB[facility]ORY Comment: Supplemental ranges: <140 mg/dL before meals <180 mg/dL all other times of the day Specimen Anatomical Collection Method Collection Time Receive d Time (Source) Location / / Volume Laterality Blood 12/09/2021 6:34 PM 2 6:34 EDT PM EDT Iker Cuevas MD POINT OF CARE TEST ORDERABLE S Performing Organization Address City/State/ZIP [place] [address] (ABNORMAL) POCT Glucose (12/09/2021 6:32 PM EDT) athologist Signature POC Glucose 356 (H) 65 - 199 [facility] mg/dL [facility] LAB[facility]ORY Comment: Supplemental ranges: <140 mg/dL before meals <180 mg/dL all other times of the day Specimen Anatomical Collection Method Collection Time Receive d Time (Source) Location / / Volume Laterality Blood 12/09/2021 6:32 PM 2 6:32 EDT PM EDT Iker Cuevas MD POINT OF CARE TEST ORDERABLE S Performing Organization Address City/State/ZIP [place] [address] (ABNORMAL) POCT Glucose (12/09/2021 4:19 PM EDT) athologist Signature POC Glucose 347 (H) 65 - 199 [place] mg/dL [facility] LABORATORY Comment: Supplemental ranges: <140 mg/dL before meals <180 mg/dL all other times of the day Specimen Anatomical Collection Method Collection Time Receive d Time (Source) Location / / Volume Laterality Blood 12/09/2021 4:19 PM 2 4:19 EDT PM EDT Iker Cuevas MD POINT OF CARE TEST ORDERABLE S Performing Organization Address City/State/ZIP [place] [address] Heparin (unfractionated) Level (12/09/2021 1:29 PM EDT) athologist [facility] Heparin UFH 0.42 IU/mL [facility] LABORATORY Comment: Heparin (anti-Xa) levels should [...] Organization Address City/State/ZIP [place] [address] (ABNORMAL) POCT Glucose (12/09/2021 12:02 PM EDT) athologist Signature POC Glucose 235 (H) 65 - 199 [facility] mg/dL [facility] LABORATORY Comment: Supplemental ranges: <140 mg/dL before meals <180 mg/dL all other times of the day Specimen Anatomical Collection Method Collection Time Receive d Time (Source) Location / / Volume Laterality Blood 12/09/2021 12:02 12/09/2021 PM EDT 12:02 PM EDT Iker Cuevas MD POINT OF CARE TEST ORDERABLE S Performing Organization Address City/[facility]/ZIP [place] [address] (ABNORMAL) POCT Glucose (12/09/2021 9:44 AM EDT) athologist Signature POC Glucose 214 (H) 65 - 199 [facility] mg/dL [facility] LABORATORY Comment: Supplemental ranges: <140 mg/dL before meals <180 mg/dL all other times of the day Specimen Anatomical Collection Method Collection Time Receive d Time (Source) Location / / Volume Laterality Blood 12/09/2021 9:44 AM 9:44 EDT AM EDT Iker Cuevas MD POINT OF CARE TEST ORDERABLE S Performing Organization Address City/[facility]/ZIP [place] [address] EKG 12 Lead (12/09/2021 7:57 AM EDT) Component Value Ref Range Test Analysis Performed Pathologis t Method Time At Signature Ventricular rate 101 BPM MUSE SYSTEM Atrial Rate 101 BPM MUSE SYSTEM P-R Interval 150 ms MUSE SYSTEM QRS Duration 112 ms MUSE SYSTEM Q-T Interval 364 ms MUSE SYSTEM QTC Calculated 471 ms MUSE SYSTEM (Bezet) Calculated P [place] 59 degrees MUSE SYSTEM Calculated R [place] -42 degrees MUSE SYSTEM Calculated T [place] 102 degrees MUSE SYSTEM INTERPRETATION Sinus tachycardia Occasional Premature ventricular com plexes MUSE SYSTEM Left axis deviation 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) Abnormal ECG When compared with ECG of 08-DEC-2021 16:40, Premature ventricular complexes are now Present Confirmed by MD Fernandez Danette ([id number]) on 12/10/2021 4:55:06 PM Specimen Anatomical Collection Method Collection Time Receive d Time (Source) Location / / Volume Laterality 12/09/2021 7:57 AM 4:55 EDT PM EDT Iker Cuevas MD ECG ORDERABLES Performing Organization Address City/State/ZIP Code Phon e Number MUSE SYSTEM (ABNORMAL) POCT Glucose (12/09/2021 7:28 AM EDT) P athologist Signature POC Glucose 263 (H) 65 - 199 [facility] mg/dL [facility] LABOR[facility]ORY Comment: Supplemental ranges: <140 mg/dL before meals <180 mg/dL all other times of the day Specimen Anatomical Collection Method Collection Time Receive d Time (Source) Location / / Volume Laterality Blood 12/09/2021 7:28 AM 7:28 EDT AM EDT Iker Cuevas MD POINT OF CARE TEST ORDERABLE S Performing Organization Address City/State/ZIP [place] [address] (ABNORMAL) Hemoglobin A1c (12/09/2021 [...] Mellitus, Diabetes Care 2013; 36: Suppl. 1, S67-86 Est Avg Gluc See note mg/dL [facility] LABORATORY Comment: Estimated Average Glucose not [...] with hemoglobinopathies. Additional resources are available on [facility] ADA website. Macario HAMMOND, Ruthann J, Deysi R, et al. ??Tr anslating the A1C assay into estimated average glucose values. ??Diabetes Care 2008:31(8):1956-4661. Specimen Anatomical Collection Method Collection Time Receive d Time (Source) Location / / Volume Laterality Blood Venous Draw / 12/09/2021 6:18 AM 12/10/19 22 Unknown EDT 12:24 PM EDT Resulting Agency Comment Spec In Lab Migdalia BROWN CHEMISTRY ORDERABLES Performing Organization Address City/[facility] [place] [address] (ABNORMAL) Prothrombin Time (12/09/2021 6:18 AM EDT) P athologist Signature PT 26.6 (H) 9.4 - 12.5 [facility] LABORATORY INR 2.3 [facility] LABORATORY Comment: An INR <2.0 indicates [...] Migdalia BROWN HEMATOLOGY ORDERABLES Performing Organization Address [facility]/ZIP [place] [address] Heparin (unfractionated) Level (12/09/2021 6:18 AM EDT) P athologist Signature Heparin UFH 0.24 IU/mL [facility] LABORATORY Comment: Heparin (anti-Xa) levels should [...] Cuevas MD HEMATOLOGY ORDERABLES Performing Organization Address City/[facility]/ZIP Code Phon e Number [address] (ABNORMAL) Differential, Automated (12/09/2021 6:18 AM EDT) Patholo gist Method Time Signature Neutrophils % 91.5 % [facility] LABORATORY Neutr Abs (ANC) 15.78 (H) 1.70 - [facility] 6.10 [facility] x10(3)/[facility] L LABORATORY Lymphocytes % 2.9 % [facility] LABORATORY Lymphocytes Abs 0.5 (L) 0.9 - 3.2 [facility] x10(3)/[facility] LABORATORY Monocytes % 4.9 % [facility] LABORATORY Monocyte Abs 0.8 0.3 - 0.9 [facility] x10(3)/[facility] LABORATORY Eosinophils % 0.0 % [facility] Eosinophils Abs 0.0 0.0 - 0.4 [facility] x10(3)/[facility] LABORATORY Basophils % 0.2 % [facility]OR[facility] Basophils Abs 0.0 0.0 - 0.1 [facility] x10(3)/[facility] LABORATORY Immature Gran % 0.50 % [facility] LABORATORY Comment: Immature granulocytes(IG's)percentage an d absolute count will include metamyelocytes, myelocytes, and promyelo cytes. Blood smears from CBCs yielding IG's will be scanned manually for concor dance. If this scan disagrees with the automated IG or if promyelocytes are not ed, a manual differential will be performed. Melisa Gran Abs 0.09 (H) 0.00 - 0.04 x10(3)/[facility] LABORATORY Specimen Anatomical Collection Method Collection Time Receive d Time (Source) Location / / Volume Laterality Blood 12/09/2021 6:18 AM 6:33 EDT AM EDT Resulting Agency Comment Spec In Lab Morgan BROWN HEMATOLOGY ORDERABLES Performing Organization Address City/State/ZIP [place] [address] (ABNORMAL) Hemogram (12/09/2021 6:18 AM EDT) Analysis Performed At Patho logist Time Signature WBC 17.2 (H) 4.0 - 9.5 [facility] x10(3)/[facility] LABORATORY RBC 4.32 (L) 4.58 - [facility] 5.54 [facility] x10(6)/[facility] LABORATORY Hemoglobin 12.6 (L) 13.7 - [facility] 16.5 g/dL [facility] LAB[facility]ATORY Hematocrit 38.9 (L) 40.5 - [facility] 48.5 % [facility] LABORATORY MCV 90.0 82.9 - [facility] 93.1 fL [facility] LABORATORY MCH 29.2 27.5 - [facility] 32.1 pg [facility] LABORATORY MCHC 32.4 32.0 - [facility] 35.7 g/dL [facility] LABORATORY Platelets 193 145 - 357 [facility] x10(3)/[facility] LABORATORY RDWSD 50.4 (H) 36.0 - [facility] 45.0 [facility] LABORATORY RDWCV 15.2 (H) 11.4 - [facility] 13.8 % [facility] LABORATORY MPV 9.5 7.6 - 12.9 [facility] LABORATORY nRBC % Auto 0.0 % [facility]ORATORY nRBC Abs Auto 0.000 0.000 - [facility] 0.000 [facility] x10(3)/[facility] LABORATORY Specimen Anatomical Collection Method Collection Time Receive d Time (Source) Location / / Volume Laterality Blood 12/09/2021 6:18 AM 6:33 EDT AM EDT Resulting Agency Comment Spec In Lab Morgan BROWN HEMATOLOGY ORDERABLES Performing Organization Address City/State/ZIP [place] [address] Lipid Panel (Reflex Direct LDL) (12/09/2021 6:18 AM EDT) P athologist Signature Chol, Total 105 mg/dL [facility] LABORATORY Comment: Lower Risk: <200 mg/dL Average Risk: 200-239 mg/dL Higher Risk: >hc=721 mg/dL Triglycerides 133 mg/dL [facility] LABORATORY Comment: Average Risk/Lower Risk: <150 mg/dL Borderline High Risk: 150-199 mg/dL High Risk: 200-499 mg/dL Very High Risk: >al=533 mg/dL HDL 42 mg/dL [facility] LABORATORY Comment: Males: ?? Higher Risk: <40 mg/dL Females: ?? Higher Risk: <50 mg/dL LDL Cholesterol 36 mg/dL [facility]OR[facility] Comment: Lowest Risk: <100 mg/dL Lower Risk: 100-129 mg/dL Borderline High Risk: 130-159 mg/dL High Risk: 160-189 mg/dL Very High Risk: >gs=405 mg/dL Chol/HDL Ratio 2.5 ratio [facility] LABORATORY Lipid Interpretation See Note [facility] LABORATORY Comment: Lipid management should be guided by a p atient? s ASCVD risk, goals and preferences. ACC/AHA Guidelines recommend high intens ity statin if clinical ASCVD or LDL greater than or equal to 190 mg/dL. [email or web address] Adults aged 40-75 with LDL 70-189 mg/dL should have their 10 year ASCVD risk estimated with the ACC/AHA ASCVD risk es timator http://tools.acc.org/RCYOE-Gsku-Msptgkqt r/ Statin should be discussed if risk [...] Organization Address City/State/ZIP [place] [address] TSH (12/09/2021 6:18 AM EDT) P athologist Signature TSH 1.60 0.27 - 4.20 [facility] SU mcIU/mL [facility] LABORATORY Comment: Reference Interval (mcIU/mL): Females: ??First Trimester: 0.23-3.88 ??Second Trimester: 0.22-3.90 ??Third Trimester: 0.44-4.66 Specimen Anatomical Collection Method Collection Time Receive d Time (Source) Location / / Volume Laterality Blood 12/09/2021 6:18 AM 2 6:33 EDT AM EDT Resulting Agency Comment Spec In Lab Iker Cuevas MD CHEMISTRY ORDERABLES Performing Organization Address City/State/ZIP [place] [address] Hepatic Function Panel (12/09/2021 6:18 AM EDT) athologist Signature Total Protein 7.3 6.1 - 8.0 [place] [facility] g/dL [facility] LABORATORY Albumin 4.2 3.2 - 5.2 [place] [facility] g/dL [facility] LABOR[facility]ORY AST 25 0 - 39 [facility] SU unit/L [facility] LABORATORY ALT 15 0 - 55 [place] [facility] unit/L [facility] LABOR[facility]ORY Alk Phos 75 40 - 130 [facility] SU unit/L [facility] LABORATORY Total 1.1 0.2 - 1.3 [facility] Bilirubin mg/dL [facility] LABOR[facility]ORY Bili, Direct 0.2 0.0 - 0.3 [facility] mg/dL [facility] LABORATORY Specimen Anatomical Collection Method Collection Time Receive d Time (Source) Location / / Volume Laterality Blood 12/09/2021 6:18 AM 6:33 EDT AM EDT Resulting Agency Comment Spec In Lab Iker Cuevas MD CHEMISTRY ORDERABLES Performing Organization Address City/State/ZIP [place] [address] (ABNORMAL) BMP w/fasting Glucose (12/09/2021 6:18 AM EDT) athologist Signature Glucose 235 (H) 65 - 99 [place] [facility] Fasting mg/dL [facility] LAB[facility]ORY Comment: ?Fasting* Glucose Interpretive C [...] of Diabetes Mellitus, Position Statement from the [place] [employer]. ??Diabete s Care, Volume 33, Supplement 1, Jul 2009 BUN 49 (H) 10 - 20 mg/dL [facility] LABORATORY Creatinine 1.33 0.80 - 1.50 mg/dL [facility] LABOR[facility] Sodium 139 135 - 145 mmol/L [facility] LABOR[facility]ORY Potassium 4.2 3.5 - 5.0 mmol/L [facility] LABORATORY Comment: Please note: ??Patients with WBC >100,00 0 may have falsely elevated Potassium levels. ??For accurate Potassium quantif ication in these patients send serum separator tube (gold top) for subsequent determinations. ??Contact the Clinical Chemistry Laboratory if there are any qu estions. Chloride 101 98 - 107 mmol/L [facility] CO2 21 (L) 22 - 31 mmol/L [facility] Anion Gap 17 (H) 5 - 15 mmol/L [facility] LABORATORY Calcium 8.8 8.5 - 10.5 mg/dL [facility] LABORATORY Estimated GFR 52 (L) >=60 mL/min/1.73 m?? [facility] Comment: This patient? s estimated [...] EDT Resulting Agency Comment Spec In Lab kIer Cuevas MD CHEMISTRY ORDERABLES Performing Organization Address City/State/ZIP [place] [address] Magnesium (12/09/2021 6:18 AM EDT) athologist Signature Magnesium 0.81 0.69 - 1.07 [facility] SU mmol/L [facility] LABORATORY Specimen Anatomical Collection Method Collection Time Receive d Time (Source) Location / / Volume Laterality Blood 12/09/2021 6:18 AM 2 6:33 EDT AM EDT Resulting Agency Comment Spec In Lab Iker Cuevas MD CHEMISTRY ORDERABLES Performing Organization Address City/State/ZIP Code Phon e Number [facility] [address] (ABNORMAL) Troponin (12/09/2021 6:18 AM EDT) athologist Signature Troponin-T 1.13 (H) 0.00 - [place] [facility] 0.00 ng/mL [facility] LABOR[facility]ORY Comment: The 99th percentile for Troponin T is le ss than 0.01 ng/mL, any detectable cTnT concentration using this assay should be considered elevated. According to the third universal definit ion of myocardial infarction the following criteria with a clinical prese ntation consistent with acute myocardial ischemia meets the diagnosis for a myocardial infarction (PR). Detection of a rise and/or fall of [...] additional sample may be indicated. Reference: Third [place] Definition of Myocardial Infarction. Journal of the [place] [employer] 2012;60:1581-98 Specimen Anatomical Collection Method Collection Time Receive d Time (Source) Location / / Volume Laterality Blood 12/09/2021 6:18 AM 6:33 EDT AM EDT Resulting Agency Comment Spec In Lab Iker Cuevas MD CHEMISTRY ORDERABLES Performing Organization Address City/State/ZIP Code Ph[place] [address] XR Chest One View [...] who have questions please contact the health director of career services that requested your imaging first. ? Narrative [...] ho have questions please contact the health director of career services that requested your imaging first. Amber Sanches MD IMG DX ORDERABLES (ABNORMAL) BLOOD GAS 2 ARTERIAL (12/09/2021 5:14 AM EDT) Analysis Performed At Patho logist Time Signature pH Art 7.43 7.35 - [facility] 7.45 [facility] pCO2 Art 36 35 - 45 [facility] mmHg [facility] pO2 Art 67 (L) 85 - 104 [facility] mmHg [facility] HCO3 Art 23.4 20.0 - [facility] 26.0 [facility] mmol/L [facility] BE Art -0.9 -3.0 - 3.0 [facility] mmol/L [facility] Hgb Blood Gas 13.2 (L) 13.7 - [facility] 16.5 g/dL [facility] O2HB Art 91.3 (L) 94.0 - [facility] 97.0 % [facility] COHB Art 0.4 % [facility] Comment: Nonsmokers: 0.5-1.5% COHB Smokers: Variable, but usually less than 10% Toxic: 20-30% COHB Lethal: Greater than 60% COHB METHB Art 0.4 <=1.5 % [facility] Na Whole Blood 138 135 - 145 mmol/L [facility] K Whole Blood 4.1 3.5 - 5.0 mmol/L [facility] Comment: Please note: Patients with WBC >100,000 may have falsely elevated Potassium levels. Contact the Clinical Chemistry L aboratory if there are any questions. ICa Whole Blood 1.09 (L) 1.15 - 1.33 mmol/L [facility] Comment: Note: ??Total bilirubin higher than 20 m g/dL may lead to falsely low ionized calcium. CL Whole Blood 104 98 - 107 mmol/L [facility] Gluc Whole Bld 223 (H) 65 - 199 mg/dL [facility] Comment: Diabetes: >=200 mg/dL plus symp toms. Lactate WB 2.7 (H) 0.5 - 2.2 mmol/L [facility] FIO2 Art 35 % [facility] Flow Art 8.0 LPM [facility] PF Ratio Art 191 [facility] Specimen Anatomical Collection Method Collection Time Receive d Time (Source) Location / / Volume Laterality Blood 12/09/2021 5:14 AM 2 5:14 EDT AM EDT Iker Cuevas MD CHEMISTRY ORDERABLES Performing Organization Address City/[facility]/ZIP [place] [address] POCT Glucose (12/09/2021 4:46 AM EDT) P athologist Signature POC Glucose 198 65 - 199 [facility] mg/dL [facility] Comment: Supplemental ranges: <140 mg/dL before meals <180 mg/dL all other times of the day Specimen Anatomical Collection Method Collection Time Receive d Time (Source) Location / / Volume Laterality Blood 12/09/2021 4:46 AM 2 4:46 EDT AM EDT Iker Cuevas MD POINT OF CARE TEST ORDERABLE S Performing Organization Address City/State/ZIP [place] [address] (ABNORMAL) POCT Glucose (12/09/2021 3:01 AM EDT) athologist Signature POC Glucose 225 (H) 65 - 199 [facility] Comment: Supplemental ranges: <140 mg/dL before meals <180 mg/dL all other times of the day Specimen Anatomical Collection Method Collection Time Receive d Time (Source) Location / / Volume Laterality Blood 12/09/2021 3:01 AM 3:01 EDT AM EDT Iker Cuevas MD POINT OF CARE TEST ORDERABLE S Performing Organization Address City/State/ZIP Code Phon e Number [address] (ABNORMAL) POCT Glucose (12/08/2021 10:55 PM EDT) athologist Signature POC Glucose 327 (H) 65 - 199 [facility] mg/dL [facility] Comment: Supplemental ranges: <140 mg/dL before meals <180 mg/dL all other times of the day Specimen Anatomical Collection Method Collection Time Receive d Time (Source) Location / / Volume Laterality Blood 12/08/2021 10:55 12/08/2021 PM EDT 10:55 PM EDT Iker Cuevas MD POINT OF CARE TEST ORDERABLE S Performing Organization Address City/State/ZIP [place] [address] Heparin (unfractionated) Level (12/08/2021 10:03 PM EDT) athologist Signature Heparin UFH 0.18 IU/mL [facility] Comment: Heparin (anti-Xa) levels should [...] Organization Address City/State/ZIP [place] [address] (ABNORMAL) Troponin (12/08/2021 10:03 PM EDT) athologist Signature Troponin-T 0.92 (H) 0.00 - BARBARA ZHAOSU 0.00 ng/mL [facility] Comment: The 99th percentile for Troponin T is le ss than 0.01 ng/mL, any detectable cTnT concentration using this assay should be considered elevated. According to the third universal definit ion of myocardial infarction the following criteria with a clinical prese ntation consistent with acute myocardial ischemia meets the diagnosis for a myocardial infarction (PR). Detection of a rise and/or fall of [...] additional sample may be indicated. Reference: Third Corona Definition of Myocardial Infarction. Journal of the [place] College [employer] 2012;60:1581-98 Specimen Anatomical Collection Method Collection Time Receive d Time (Source) Location / / Volume Laterality Blood 12/08/2021 10:03 12/08/2021 PM EDT 10:31 PM EDT Resulting Agency Comment Spec In Lab Iker Cuevas MD CHEMISTRY ORDERABLES Performing Organization Address City/[facility]/ZIP [place] [address] (ABNORMAL) POCT Glucose (12/08/2021 8:22 PM EDT) P athologist Signature POC Glucose 429 (H) 65 - 199 [facility] mg/dL [facility] Comment: Supplemental ranges: <140 mg/dL before meals <180 mg/dL all other times of the day Specimen Anatomical Collection Method Collection Time Receive d Time (Source) Location / / Volume Laterality Blood 12/08/2021 8:22 PM 2 8:22 EDT PM EDT Iker Cuevas MD POINT OF CARE TEST ORDERABLE S Performing Organization Address [facility]/ZIP [place] [address] (ABNORMAL) POCT Glucose (12/08/2021 7:06 PM EDT) athologist Signature POC Glucose 442 (H) 65 - 199 [facility] mg/dL [facility] Comment: Supplemental ranges: <140 mg/dL before meals <180 mg/dL all other times of the day Specimen Anatomical Collection Method Collection Time Receive d Time (Source) Location / / Volume Laterality Blood 12/08/2021 7:06 PM 2 7:06 EDT PM EDT Iker Cuevas MD POINT OF CARE TEST ORDERABLE S Performing Organization Address City/[facility]/ZIP [place] [address] Magnesium (12/08/2021 6:02 PM EDT) P athologist Signature Magnesium 0.86 0.69 - 1.07 [facility] mmol/L [facility] Specimen Anatomical Collection Method Collection Time Receive d Time (Source) Location / / Volume Laterality Blood 12/08/2021 6:02 PM 2 6:36 EDT PM EDT Resulting Agency Comment Spec In Lab Iker Cuevas MD CHEMISTRY ORDERABLES Performing Organization Address City/State/ZIP [place] [address] (ABNORMAL) Basic Metabolic Panel (non-fasting) (12/08/2021 6:02 PM EDT) P athologist Signature Glucose Lvl 392 (H) 65 - 199 [facility] mg/dL [facility] Comment: Diabetes: >=200 mg/dL plus symp toms BUN 41 (H) 10 - 20 mg/dL [facility] Creatinine 1.44 0.80 - 1.50 mg/dL [facility] Sodium 138 135 - 145 mmol/L [facility] Potassium 4.5 3.5 - 5.0 mmol/L [facility] Comment: Please note: ??Patients with WBC >100,00 0 may have falsely elevated Potassium levels. ??For accurate Potassium quantif ication in these patients send serum separator tube (gold top) for subsequent determinations. ??Contact the Clinical Chemistry Laboratory if there are any qu estions. Chloride 102 98 - 107 mmol/L [facility] CO2 20 (L) 22 - 31 mmol/L [facility] Anion Gap 16 (H) 5 - 15 mmol/L [facility] Calcium 8.6 8.5 - 10.5 mg/dL [facility] Estimated GFR 47 (L) >=60 mL/min/1.73 m?? [facility] Comment: This patient? s estimated [...] Organization Address City/State/ZIP [place] [address] (ABNORMAL) Differential, Automated (12/08/2021 6:02 PM EDT) [facility] gist Method Time Signature Neutrophils % 89.5 % [facility] Neutr Abs (ANC) 13.97 (H) 1.70 - [facility] 6.10 [facility] x10(3)/[facility] LABORATORY Lymphocytes % 3.7 % [facility] Lymphocytes Abs 0.6 (L) 0.9 - 3.2 [facility] x10(3)/[facility] LABORATORY Monocytes % 6.1 % [facility] Monocyte Abs 1.0 (H) 0.3 - 0.9 [facility] x10(3)/[facility] LABORATORY Eosinophils % 0.0 % [facility] Eosinophils Abs 0.0 0.0 - 0.4 [facility] x10(3)/[facility] LABORATORY Basophils % 0.2 % [facility] Basophils Abs 0.0 0.0 - 0.1 [facility] x10(3)/[facility] LABORATORY Immature Gran % 0.50 % [facility] Comment: Immature granulocytes(IG's)percentage an d absolute count will include metamyelocytes, myelocytes, and promyelo cytes. Blood smears from CBCs yielding IG's will be scanned manually for concor dance. If this scan disagrees with the automated IG or if promyelocytes are not ed, a manual differential will be performed. Melisa Gran Abs 0.08 (H) 0.00 - 0.04 x10(3)/[facility] LABORATORY Specimen Anatomical Collection Method Collection Time Receive d Time (Source) Location / / Volume Laterality Blood 12/08/2021 6:02 PM 2 6:36 EDT PM EDT Resulting Agency Comment Spec In Lab Morgan BROWN HEMATOLOGY ORDERABLES Performing Organization Address City/State/ZIP [place] [address] (ABNORMAL) Hemogram (12/08/2021 6:02 PM EDT) Analysis Performed At Patho logist Time Signature WBC 15.6 (H) 4.0 - 9.5 [facility] x[facility](3)/[facility] LABORATORY RBC 4.05 (L) 4.58 - [facility] SU 5.54 [facility] x10(6)/[facility] LABORATORY Hemoglobin 11.8 (L) 13.7 - [facility] 16.5 g/dL [facility] Hematocrit 35.8 (L) 40.5 - [facility] 48.5 % [facility] MCV 88.4 82.9 - [facility] 93.1 [facility] LABORATORY MCH 29.1 27.5 - [facility] SU 32.1 pg [facility] MCHC 33.0 32.0 - [facility] 35.7 g/dL [facility] Platelets 178 145 - 357 [facility] x10(3)/[facility] LABORATORY RDWSD 49.3 (H) 36.0 - [facility] 45.0 [facility] LABORATORY RDWCV 15.1 (H) 11.4 - [facility] 13.8 % [facility] MPV 10.4 7.6 - 12.9 [facility] LABORATORY nRBC % Auto 0.0 % [facility] nRBC Abs Auto 0.000 0.000 - [facility] 0.000 [facility] x10(3)/[facility] LABORATORY Specimen Anatomical Collection Method Collection Time Receive d Time (Source) Location / / Volume Laterality Blood 12/08/2021 6:02 PM 2 6:36 EDT PM EDT Resulting Agency Comment Spec In Lab Morgan BROWN HEMATOLOGY ORDERABLES Performing Organization Address City/State/ZIP [place] [address] (ABNORMAL) Troponin (12/08/2021 6:02 PM EDT) P athologist Signature Troponin-T 0.89 (H) 0.00 - [facility] DAVIS 0.00 ng/mL [facility] Comment: The 99th percentile for Troponin T is le ss than 0.01 ng/mL, any detectable cTnT concentration using this assay should be considered elevated. According to the third universal definit ion of myocardial infarction the following criteria with a clinical prese ntation consistent with acute myocardial ischemia meets the diagnosis for a myocardial infarction (PR). Detection of a rise and/or fall of [...] additional sample may be indicated. Reference: Third Corona Definition of Myocardial Infarction. Journal of the [place] College [employer]iology 2012;60:1581-98 Specimen Anatomical Collection Method Collection Time Receive d Time (Source) Location / / Volume Laterality Blood 12/08/2021 6:02 PM 2 6:36 EDT PM EDT Resulting Agency Comment Spec In Lab Iker Cuevas MD CHEMISTRY ORDERABLES Performing Organization Address City/State/ZIP [place] [address] COVID-19 PCR (12/08/2021 5:00 PM EDT) Patholo gist Method Time Signature SARS-CoV-2 Not Detected Not Detected BARBARA RNA PCR [facility] Comment: This result should [...] using the Simplexa COVID-19 Direct Assay by [employer] marcum as authorized by the FDA issued [...] Department of Pathology and Laboratory Medicine at [facility], certified under the Clinical Laboratory Improvement [...] fact sheets at the following FDA website: https://www.fda.gov/medical-devices/jtwboiuuegf-noqvaep-2190-gcwto-62-argcdadod- tfp-svbcycileugaut-jukkwkg-devices/hdgez-xuhffqkckrh-vzcc SARS-CoV-2 Source VEGETABLE WASHER Swab [facility] Specimen (Source) Anatomical Collection Method Collection Time Re ceived Time Location / / Volume Laterality Nasopharyngeal Swab 12/08/2021 5:00 12/08 PM EDT 6:03 PM EDT Comment: Symptoms->Surveillance Resulting Agency Comment Spec In Lab Iker Cuevas MD MICROBIOLOGY - GENERAL ORDER ROBSON Performing Organization Address City/[facility]/ZIP [place] [address] EKG 12 Lead (12/08/2021 4:40 PM EDT) Component Value Ref Range Test Analysis Performed Pathologis t Method Time At Signature Ventricular rate 78 BPM MUSE SYSTEM Atrial Rate 78 BPM MUSE SYSTEM P-R Interval 152 ms MUSE SYSTEM QRS Duration 96 ms MUSE SYSTEM Q-T Interval 396 ms MUSE SYSTEM QTC Calculated 451 ms MUSE SYSTEM (Bezet) Calculated P [place] 44 degrees MUSE SYSTEM Calculated R [place] -31 degrees MUSE SYSTEM Calculated T [place] 124 degrees MUSE SYSTEM INTERPRETATION Normal sinus [...] Cuevas MD ECG ORDERABLES Performing Organization Address City/[facility]/ZIP Code Phon e Number MUSE SYSTEM (ABNORMAL) POCT Glucose (12/08/2021 4:34 PM EDT) P athologist Signature POC Glucose 400 (H) 65 - 199 [facility] mg/dL [facility] Comment: Supplemental ranges: <140 mg/dL before meals <180 mg/dL all other times of the day Specimen Anatomical Collection Method Collection Time Receive d Time (Source) Location / / Volume Laterality Blood 12/08/2021 4:34 PM 2 4:34 EDT PM EDT Iker Cuevas MD POINT OF CARE TEST ORDERABLE S Performing Organization Address City/State/ZIP [place] [address] documented in this encounter [...] TIMES DAILY WITH MEALS, First dose on [facility] 12/08/21 at 1730, Until Discontinued, [employer]IATED [...] (Intra-Procedure), Routine niCARdipine (Cardene) (100 mcg/mL) dilution (TIRE FABRIC IMPREGNATING RANGE TENDER) (CANCELED) 1030 (Given - Provider: Vitaliy Nobles [...] (CANCELED) 0 857 (Given - Provider: Rancho oWods MD - Comment: Left radial)0902 (Given - [...] episode. & nbsp; For persistent hypoglycemia, con repair clerk longer-acting treatment for the duration of the [...]
Routine documented in this encounter Care Teams Spindle Tester Relationship Specialty Start Date End Date Lovely Vicente MD PCP - General 04/16/15 [address] [place] [address] documented as of this encounter
--- OUTSIDE RECORDS SUMMARY | 2022-02-13 11:10 | XMS_ITS | Encounter Summary ---
:1945 Author Organization [facility] [place] [address] Care Team Providers Name Role Phone Lovely Vicente MD Primary Care Provider Encounter Details Date Type Department Care Team Description 12/07/2021 External [place] [address] Social History Tobacco Use Types Packs/Day [...] Cardiology Liz Poole PA [facility] Cardiology Dept [place], [place] [address] (Wo rk) 03/26/2022 Office Visit Cardiology Vitaliy Nobles MD [facility] CARDIOLOGY [place], [place] [address] (Wo rk) documented as of [...] on filedocumented in this encounter Care Teams Button Pusher Relationship Specialty Start Date End Date Lovely Vicente MD PCP - General 04/16/[address] [place] [address] documented as of this encounter
--- OUTSIDE RECORDS SUMMARY | 2022-02-13 11:10 | XMS_ITS | Encounter Summary ---
:1945 Author Organization [facility] [place] [address] Care Team Providers Name Role Phone Lovely Vicente MD Primary Care Provider Encounter Details Date Type Department Care Team Description 03/20/2021 Ancillary Procedure Radiology Library at [place] [address] [place] [address] [phone] Social History Tobacco Use Types Packs/Day Years [...] PA [facility] er Cardiology Dept [place], [place] [address] (Wo rk) 03/26/2022 Office Visit Cardiology Vitaliy Nobles MD [facility] CARDIOLOGY [place], [place] [address] (Wo rk) documented as of [...] Organization Address City/State/ZIP Code Phon e Number [place], [place] documented in this encounter Visit Diagnoses Not on filedocumented in this encounter Care Teams Railcar Foreman Relationship Specialty Start Date End Date Lovely Vicente MD PCP - General 04/16/[address] [place] [address] documented as of this encounter
--- OUTSIDE RECORDS SUMMARY | 2022-02-13 11:10 | XMS_ITS | Encounter Summary ---
:1945 Author Organization [facility] [place] [address] Care Team Providers Name Role Phone Lovely Vicente MD Primary Care Provider Encounter Details Date Type Department Care Team Description 03/20/2021 Ancillary Procedure Radiology Library [place] [address] [place] [address] [phone] Social History Tobacco Use Types Packs/Day Years [...] Liz Poole PA [facility] er Cardiology Dept [place], [place] [address] (Wo rk) 03/26/2022 Office Visit Cardiology Vitaliy Nobles MD [facility] CARDIOLOGY [place], [place] [address] (Wo rk) documented as of [...] Organization Address City/State/ZIP Code Phon e Number [place], [place] documented in this encounter Visit Diagnoses Not on filedocumented in this encounter Care Teams Plate Shear Operator Relationship Specialty Start Date End Date Lovely Vicente MD PCP - General 04/16/[address] [place] [address] documented as of this encounter
--- OUTSIDE RECORDS SUMMARY | 2022-02-13 11:10 | XMS_ITS | Encounter Summary ---
:1945 Author Organization [facility] [place] [address] Care Team Providers Name Role Phone Lovely Vicente MD Primary Care Provider Encounter Details Date Type Department Care Team Description 12/07/2021 Telephone Cardiology Eddi Briceño Jr., [facility] [place] [address] [facility] [phone] CARDIOLOGY DEPT [place], [place] [address] (Wo rk) Social History Tobacco [...] the OSH ED provider/staff member. Referring Location: [facility] Referring Provider: Marisela Dean, OFFBEARER [address] [place] [address] Don Veda Kushal 76 y.o. w / [...] bpm, LAFB, poor R wave progression, septal WA, and lateral STD, overall no significantchange from [...] Liz Poole PA [facility] Cardiology Dept [place], [place] [address] (Wo rk) 03/26/2022 Office Visit Cardiology Vitaliy Nobles MD [facility] ER CARDIOLOGY [place], [place] [address] (Wo rk) documented as of this encounter Visit Diagnoses Not on filedocumented in this encounter Care Teams Blend Plant Operator Relationship Specialty Start Date End Date Lovely Vicente MD PCP - General 04/16/15 [address] [place] [address] documented as of this encounter
--- OUTSIDE RECORDS SUMMARY | 2022-02-13 11:10 | XMS_ITS | Encounter Summary ---
:1945 Author Organization [facility] [place] [address] Care Team Providers Name Role Phone Lovely Vicente MD Primary Care Provider Encounter Details Date Type Department Care Team Description 04/16/2021 Laboratory Appointment Lab 3L [facility] systolic [facility] [place] [id number] Social History Tobacco Use Types Packs/Day Years [...] Liz Poole PA [facility] er Cardiology Dept [place], [place] [address] (Wo rk) 03/26/2022 Office Visit Cardiology Vitaliy Nobles MD [facility] ER CARDIOLOGY [place], [place] [address] (Wo rk) documented as [...] athologist Signature ProBNP 523 (H) <=124 pg/mL [facility] Specimen Anatomical Collection Method Collection Time Receive d Time (Source) Location / / Volume Laterality Blood 04/16/2021 9:58 AM EDT 10:02 AM EDT Resulting Agency Comment Spec In Lab Zulma Plunkett MD CHEMISTRY ORDERABLES Performing Organization Address City/State/[place] [address] (ABNORMAL) Basic Metabolic Panel (non-fasting) (04/16/2021 9:58 AM EDT) athologist Signature Glucose Lvl 77 65 - [address] [facility] mg/dL [facility] Comment: Diabetes: >=200 mg/dL plus symp toms BUN 23 (H) 10 - 20 mg/dL [facility] Creatinine 1.26 0.80 - 1.50 mg/dL [facility] Sodium 140 135 - 145 mmol/L [facility] Potassium 5.2 (H) 3.5 - 5.0 mmol/L [facility] Comment: Please note: ??Patients with WBC >100,00 0 may have falsely elevated Potassium levels. ??For accurate Potassium quantif ication in these patients send serum separator tube (gold top) for subsequent determinations. ??Contact the Clinical Chemistry Laboratory if there are any qu estions. Chloride 103 98 - 107 mmol/L [facility] CO2 28 22 - 31 mmol/L [facility] Anion Gap 9 5 - 15 mmol/L [facility] Calcium 9.3 8.5 - 10.5 mg/dL [facility] Estimated GFR 55 (L) >=60 mL/min/1.73 m?? [facility] Comment: This patient? s estimated [...] Organization Address City/State/[place] [address] documented in this encounter Visit Diagnoses Diagnosis Chronic systolic heart failure documented in this encounter Care Teams Gas Compressor Operator Relationship Specialty Start Date End Date Lovely Vicente MD PCP - General 04/16/[address] [place] [address] documented as of this encounter
--- OUTSIDE RECORDS SUMMARY | 2022-02-13 11:10 | XMS_ITS | Encounter Summary ---
:1945 [place] [address] Care Team Providers Name Role Phone Lovely Vicente MD Primary Care Provider Encounter Details Date Type Department Care Team Description 03/20/2021 Telephone Neurology at [facility] Hugo Gaston MD [facility] [place] [id number] [place] [address] [phone] (Wo rk) Social History Tobacco Use Types [...] - 03/20/2021 6:03 PM EDT Call from [facility]. 76 M with h/o DM. CABG, [...] Gaston MD Department of Neurology Pager # [phone] documented in this encounter Plan of Treatment Upcoming Encounters Date Type Specialty Care Team Description 02/19/2022 Laboratory Appointment Lab 02/19/2022 Office Visit Cardiology Liz Poole PA [facility] [place], [place] [address] (Wo rk) 03/26/2022 Office Visit Cardiology Vitaliy Nobles MD [facility] [place], [place] [address] (Wo rk) documented as of this encounter Visit Diagnoses Not on filedocumented in this encounter Care Teams Aromatherapist Relationship Specialty Start Date End Date Lovely Vicente MD PCP - General 04/16/[address] [place] [address] documented as of this encounter
--- OUTSIDE RECORDS SUMMARY | 2022-02-13 11:10 | XMS_ITS | Encounter Summary ---
:1945 Author Organization [facility] [place] [address] Care Team Providers Name Role Phone Lovely Vicente MD Primary Care Provider Reason for Visit Auth/Cert Specialty Diagnoses / Procedures Referred By Contact Refer red To Contact Diagnoses NSTEMI Procedures emerg ipi Referral ID Status Reason Start Date Expiration Date Visits Requ ested Visits Authorized [id number] 1 1 Encounter Details Date Type Department Care Team Description 12/10/2021 Surgery Child And Family Services Specialist Asa Coulter MD CARDIAC CATHETERIZATION [facility] [place] [address] [place] [address] [phone] (Wo rk) Social History Tobacco Use Types [...] Don Fatima Patient Age: 76 y.o. Language: Solomon Islander Race: White Ethnicity: Not nor Admit date: [...] Peter PA-C Kelly LaFlamme PA-C Cardiovascular Medicine [phone] Discharge Diagnoses (Hospital Problems) and Secondary Diagnoses [...] 3.75 guiding catheter and a 3.5 Fr [place] [facility] [place] 20 Mhz using Manual pullback. Imaging was successful. Image quality was good. The ostial LCX showed moderate diffuse atherosclerotic plaque with scattered three quadrant calcification. Measurements were performed after pre-dilation. Post Intervention: The stent was well expanded and apposed. Intravascular Ultrasound was performed in the distal LM using a 7 Fr EBU 3.75 guiding catheter and a 3.5 Fr [place] [facility] [place] 20 Mhz using Manual pullback. Imaging was successful. Image quality was good. The distal LM showed moderate diffuse atherosclerotic plaque. Post Intervention: The stent was well expanded and apposed. Indication for Intervention: Coronary intervention was indicated for primary therapy for an acute myocardial infarction. The priority for the procedure was Urgent. The [facility] indication for the procedure was NSTE-ACS. LVEF [...] may require modification of this regimen. Consult [facility] Interventional Cardiology for questions. The [...] vascular congestion and cardiomegaly. ?? TTE from [facility] 12/08/21 ? Prior Cardiac Studies: TTE 07/28/2019 [...] prior thyroidectomy in 2012 who presented to [facility] with 1 week progressing breathlessness with patient [...] 03/2021 with Liz Poole PA-C. ?? At [facility], respiratory distress with hypoxia 86% on room [...] and diet drinks did not cause his [place]. This is what his thought was the [...] appointments: During 8am-5pm Wednesday through Wednesday call [phone] to speak with a nurse in the cardiology clinic All other times call [phone] and ask to speak to the embedder cone tender. Return to work: One week Driving: No driving for 48 hours after catheterization. Follow up Appointments: PCP Lovely Vicente MD [phone] to see patient at the end of December for annual check up. Patient to see Dr. Lorenzana at 1120 am at December 19 for a post hospital check up. Lot Boss Dr. De Oliveira to see you in [facility]. Left a message for office to set a date and time. Please call [phone] Nobles to see the patient for a same day cath in 2-3 weeks from now. Office to call with a date and time. For questions please call [phone] Home oxygen therapy: N/A Arrangements for VNA/home care: none Future Appointments and Orders Future Orders Complete By Expires Basic Metabolic Panel (non-fasting) [LAB15 Custom] 12/19/2021 (Approximate) 12/12/2022 Process Instructions: INCLUDES: Calcium, BUN, Creat, GFR, Glucose, Lytes Scheduling Instructions: Comments: Questions: Referral to Cardiac Rehab [[id number] Custom] As directed Process Instructions: If no [...] appointments: During 8am-5pm Wednesday through Wednesday call [phone] to speak with a nurse in the cardiology clinic All other times call [phone] and ask to speak to the embedder cone tender. Return to work: One week Driving: No driving for 48 hours after catheterization. Follow up Appointments: PCP Lovely Vicente MD [phone] to see patient at the end of December for annual check up. Patient to see Dr. Lorenzana at 1120 am at December 19 for a post hospital check up. Lot Boss Dr. De Oliveira to see you in [facility]. Left a message for office to set a date and time. Please call [phone] Nobles to see the patient for a same day cath in 2-3 weeks from now. Office to call with a date and time. For questions please call [phone] Home oxygen therapy: N/A Arrangements for VNA/home [...] LANTUS SOLOSTAR U-100 35 Units nightly. 0 05/29/ 019 INSULIN pen ascorbic acid, Vitamin Take [...] Progress Note Patient Name: Don Fatima Service: CHIEF SCIENCE OFFICER / PA Responsible Attending: Ifeanyi Truong MD [...] was given Lasix 80mg IV x1 in laboratory equipment cleaner. Tolerated procedure well. Home today at 11 [...] TROPONINT 1.13* 0.92* 0.89* Pertinent Radiographic/Diagnostic Results: R/[facility] 12/10/21 Hemodynamics: Right Heart Pressures Resting: Syst [...] pulmonary vascular congestion and cardiomegaly. TTE from [facility] 12/08/21 Prior Cardiac Studies: TTE 07/28/2019 SUMMARY: [...] with MD Janneth Neville PA 12/12/2021 Pager [phone] Associated attestation - Ifeanyi Truong MD - [...] ratio for each meal) Desirae Jett APRN [facility] Endocrinology Diabetes Management Pager [phone] 20 minutes of this 35 minute visit [...] Progress Note Patient Name: Don Fatima Service: CHIEF SCIENCE OFFICER / PA Responsible Attending: Iker Cuevas MD [...] + trop. Known CAD with hx of [place] and CABG. DM. [place] VICTOR[place].ICM. ??? ASHD [...] was given Lasix 80mg IV x1 in laboratory equipment cleaner. Tolerated procedure well. Review of Systems: Review [...] pulmonary vascular congestion and cardiomegaly. TTE from [facility] 12/08/21 Prior Cardiac Studies: TTE 07/28/2019 SUMMARY: [...] and answered his questions. Iker Cuevas MD [facility] Total time spent on review of records prior to visit, face to face time with patient during visit, documentation, and coordination of care with other clinicians: 25 minutes. . Iker Cuevas MD - 12/10/2021 12:30 PM EDT Images from the original note were not included. Inpatient Cardiology Progress Note Patient Name: Don Fatima Service: CHIEF SCIENCE OFFICER / PA Responsible Attending: Iker Cuevas MD Reason for continued hospitalization: NSTEMI- s/p R/LHC- PCW 27, occluded SVGs s/p PCI to ostial LCX ADHF and hypoxia- IV diuresis Active Problems: Active Hospital Problems Diagnosis ??? Admitted with 2 days of sob, hypoxemia, and + trop. Known CAD with hx of [place] and CABG. DM. [place] VI[place].ICM. ??? ASHD [...] was given Lasix 80mg IV x1 in laboratory equipment cleaner. Tolerated procedure well. Review of Systems: Review [...] pulmonary vascular congestion and cardiomegaly. TTE from [facility] 12/08/21 Prior Cardiac Studies: TTE 07/28/2019 SUMMARY: [...] Discussed with MD Migdalia Peter PA-C Pager #[phone] 12/10/2021 Cardiology Attending Note I have seen [...] updated and given pictures. Iker Cuevas MD [facility] Total time spent on review of records prior to visit, face to face time with patient during visit, documentation, and coordination of care with other clinicians: 35 minutes. Iker Cuevas MD - 12/09/2021 7:28 AM EDT Images from the original note were not included. Inpatient Cardiology Progress Note Patient Name: Don Fatima Service: CHIEF SCIENCE OFFICER / PA Responsible Attending: Iker Cuevas MD Reason for continued hospitalization: NSTEMI- awaiting R/LHC ADHF and hypoxia- IV diuresis, R/LHC Active Problems: Active Hospital Problems Diagnosis ??? Admitted with 2 days of sob, hypoxemia, and + trop. Known CAD with hx of [place] and CABG. DM. [place] VICTORIA.ICM. ??? ASHD [...] pulmonary vascular congestion and cardiomegaly. TTE from [facility] 12/08/21 Prior Cardiac Studies: TTE 07/28/2019 SUMMARY: [...] Discussed with MD Migdalia Peter PA-C Pager #[phone] 12/09/2021 Cardiology Attending Note I have seen and examined the patient. I agree with the findings above. Developed CHF early this am despite getting more iv lasix last evening. Feeling better now. INR > 2. Lungs still wet at base. Echo at [facility] showed EF 35% with mild mod MR slightly lower than last value here. -vit K 2.5 orally to facilitate correction of INR- this will take 12-24 hours to take effect -furosemide 80 mg iv now -postpone right and left heart cath until tomorrow given INR and ADHF -increase statin to achieve LDL < 70 -CPAP tonight Iker Cuevas MD [facility] Total time spent on review of [...] + trop. Known CAD with hx of [place] and CABG. DM. [place] VI[place].ICM. ??? ASHD [...] prior thyroidectomy in 2012 who presented to [facility] with 1 week progressing breathlessness with patient [...] visit 03/2021 with Liz Poole PA-C. At [facility], respiratory distress with hypoxia 86% on room [...] SETUP performed by Manny Mcknight MD at [facility] MAIN OR ??? PRO AMPUTATION FOOT, TRANSMETATARSAL Right 08/09/2017 AMPUTATION, TRANSMETATARSAL (WRVU 12.71) performed by Yonathan Smith MD at [facility] MAIN OR ??? PRO CABG, ARTERIAL, SINGLE N/A 07/07/2017 @CABG, USING ARTERIAL GRAFT;SINGLE ARTERIAL GRAFT (WRVU 33.75) performed by Yuan Retana MD at [facility] MAIN OR ??? PRO CABG, ARTERY-VEIN, TWO N/A 07/07/2017 @CABG, TWO VENOUS GRAFTS & ARTERIAL GRAFT (WRVU 7.93) performed by Yuan Retana MD at [facility] MAIN OR ??? PRO COLONOSCOPY, REMV LESN, SNARE 01/16/2014 COLONOSCOPY, POLYPECTOMY, REMOVAL LESION BY SNARE performed by Nohemi Jaimes MD at [facility] ENDOSCOPY ??? PRO DRESSING CHANGE UNDER ANESTHESIA Right 08/11/2017 (MSURG) DRESSING CHANGE (FOR OTHER THAN IVAN) UNDER ANES. (WRVU 0.86) performed by Lamar Smith MD at [facility] MAIN OR ??? PRO ENDOSCOPY W/VIDEO-ASST VEIN HARVEST, CABG Right 07/07/2017 ENDOSCOPIC HARVEST VEIN(S) FOR CABG (WRVU 0.31) performed by Yuan Retana MD at [facility] MAIN OR ??? PRO THYROIDECTOMY 03/28/2013 THYROIDECTOMY, TOTAL OR COMPLETE performed by Manny Mcknight MD at [facility] MAIN OR Significant Family History: Family [...] (H) 65 - 199 mg/dL Labs at [facility] 12/08/2021-troponin I 8004 (UN L <60), 12/07- [...] Monitor for ADRs. Trend troponins. Admission EKG. [facility] 12/09; consented. TTE. Telemetry monitoring, daily weights, [...] code #Diet-carb control; n.p.o. after midnight for [facility] #DVT prophy- heparin infusion #GI prophy- PPI Discussed with MD Morgan Peter PA-C APP2 pager [phone] 12/08/2021 Cardiology Attending Note I have seen [...] is type 1 due to graft or [place] coronary stenosis vs acute injury from CHF. 3. PAF: currrently in NSR. Have replaced warfarin with heparin 4. PAD: stable 5. DM: stable 6. CKD: will monitor and minimize contrast. Pt very appreciative of Dr. Yuan Retana's care in 2018. Will let him know patient is here. Iker Cuevas MD [facility] documented in this encounter Miscellaneous Notes Care [...] Type: *No Product type* / Secondary Insurance: [employer] [place] Prescription Coverage: Yes This plan was [...] cath without complications. Migdalia Parker PA-C Pager #[phone] 12/10/2021 Initial Assessments - Nick Georges RN [...] COVID test: Lab Results Component Value Date [id number] Not Detected 12/08/2021 Past medical History: Past [...] spouse would be surrogate decision maker per [place] surrogate decision making law. (Only good for 180 days) Any patient receiving care at [facility] must abide by [place] law. The hierarchy for surrogate decision making [...] (i) The agent with financial power of associate attorney or a conservator appointed in accordance [...] - standard, cane - straight Home Address: [address] [place] [address] [place] [address] Social & Family Supports: All names listed below confirmed with patient as current and correct Extended Emergency Contact Information Primary Emergency Contact: Kisha Fatima Address: [address] [place] [address] [place] [address] [place] Relation: Spouse Secondary Emergency Contact: Elba Swenson Address: [address] [place] Relation: Child Current [...] Type: *No Product type* / Secondary Insurance: Prescription Coverage: Yes Preferred Pharmacy: [facility] [id number] - [place], [place] - [address] [place] [address] [id number] Status: Patient is a : unable to assess Primary Care Provider: Lovely Vicente MD [phone] Patient/Caregiver Goals of Treatment: Get out of here Potential Needs for Transition of Care: none Agency Referrals: none [facility] the [facility] Transportation: no concerns Transportation Anticipated: family or friend will provide Concerns to be Addressed: patient refuses services, discharge planning Assessment: Patient is admitted to [facility] Service pager [phone] for 76 y.o.??male??with h/o??CAD s/p 3vCABG (THOMPSON-LAD, [...] status on current unit. Nick Georges RN systems programmer analyst, Office of Care Management Pager: [phone] Brief Op Note - Vitaliy Nobles MD - 12/10/2021 8:31 AM EDT Images from the original note were not included. [facility] [place] [address] CORONARY ANGIOGRAM AND PERCUTANEOUS CORONARY INTERVENTION REPORT Patient: Don Fatima : 1945 MR number: [id number] Date of Service: 12/10/2021 Plate Furnace Operator: Vitaliy Nobles MD Fellow: [place] MD [...] management and to provide a review of snf diabetes care. Diabetes History: Don Fatima has had diabetes for 10 years. He has been on insulin for the last several years andis managed by his PCP. Lives in [place], [place] with his . States that he [...] 5 gm carb ratio for each meal) half-way diabetes care: Medications - Outpatient treatment regimen recommendations pending based on the hospital course. Monitoring - continue BG tid ac & hs Diet - low fat/low carb diet Exercise - weight-bearing exercise 30 min/day, as tolerated Thank you for allowing us to provide care for your patient Desirae Jett APRN Endocrinology Pager [phone] 70 minutes of this 80 minute visit [...] + trop. Known CAD with hx of [place] and CABG. DM. MARIA VICTORIA.ICM. ??? ASHD [...] to remain on Med/Surg floor, please page [phone] for any further questions or concerns. LANDON [...] for further details. STEPHANIE Rebolledo 12/08/2021 Pager [phone] documented in this encounter Plan of Treatment Upcoming Encounters Date Type Specialty Care Team Description 02/19/2022 Laboratory Appointment Lab 02/19/2022 Office Visit Cardiology Liz Poole PA [facility] Cardiology Dept [place], [place] [address] (Wo rk) 03/26/2022 Office Visit Cardiology Vitaliy Nobles MD [facility] CARDIOLOGY [place], [place] [address] (Wo rk) Scheduled Referrals Name [...] POC Glucose 215 (H) 65 - 199 [facility] mg/dL [facility] Comment: Supplemental ranges: <140 mg/dL before meals <180 mg/dL all other times of the day Specimen Anatomical Collection Method Collection Time Receive d Time (Source) Location / / Volume Laterality Blood 12/12/2021 7:42 AM 7:42 EDT AM EDT Ifeanyi Truong MD POINT OF CARE TEST ORDERABLE S Performing Organization Address City/State/[place] [address] (ABNORMAL) Differential, Automated (12/12/2021 4:51 AM EDT) P athologist Signature Neutrophils % 75.4 % [facility] LABOR[facility] Neutr Abs (ANC) 5.95 1.70 - [facility] 6.10 [facility] x10(3)/[facility] LABORATORY Lymphocytes % 12.2 % [facility] Lymphocytes Abs 1.0 0.9 - 3.2 [facility] x10(3)/[facility] LABORATORY Monocytes % 9.5 % [facility] Monocyte Abs 0.8 0.3 - 0.9 [facility] x10(3)/[facility] LABORATORY Eosinophils % 1.8 % [facility] Eosinophils Abs 0.1 0.0 - 0.4 [facility] x10(3)/[facility] LABORATORY Basophils % 0.5 % [facility] Basophils Abs 0.0 0.0 - 0.1 [facility] x10(3)/[facility] LABORATORY Immature Gran % 0.60 % [facility] Comment: Immature granulocytes(IG's)percentage an d absolute count will include metamyelocytes, myelocytes, and promyelo cytes. Blood smears from CBCs yielding IG's will be scanned manually for concor dance. If this scan disagrees with the automated IG or if promyelocytes are not ed, a manual differential will be performed. Melisa Gran Abs 0.05 (H) 0.00 - 0.04 x10(3)/[facility] LABORATORY Specimen Anatomical Collection Method Collection Time Receive d Time (Source) Location / / Volume Laterality Blood 12/12/2021 4:51 AM 5:06 EDT AM EDT Resulting Agency Comment Spec In Lab Bijan Sun MD HEMATOLOGY ORDERABLES Performing Organization Address City/State/[place] [address] (ABNORMAL) Hemogram (12/12/2021 4:51 AM EDT) Analysis Performed At Patho logist Time Signature WBC 7.9 4.0 - 9.5 [facility] x10(3)/[facility] LABORATORY RBC 4.19 (L) 4.58 - [facility] 5.54 [facility] x10(6)/[facility] LABORATORY Hemoglobin 12.1 (L) 13.7 - [facility] 16.5 g/dL [facility]OR[facility] Hematocrit 36.7 (L) 40.5 - [facility] 48.5 % [facility] MCV 87.6 82.9 - [facility]1 [facility] LABORAT[facility] MCH 28.9 27.5 - [place] [facility] 32.1 pg [facility] MCHC 33.0 32.0 - [facility] 35.7 g/dL [facility] Platelets 231 145 - 357 [facility] x10(3)/[facility] LABORATORY RDWSD 47.2 (H) 36.0 - [facility] 45.0 [facility] LABORATORY RDWCV 14.6 (H) 11.4 - [facility] 13.8 % [facility] LABORATORY MPV 9.5 7.6 - 12.9 [facility] LABORATORY nRBC % Auto 0.0 % [facility] LABOR[facility]ORY nRBC Abs Auto 0.000 0.000 - [facility] 0.000 [facility] x10(3)/[facility] LABORATORY Specimen Anatomical Collection Method Collection Time Receive d Time (Source) Location / / Volume Laterality Blood 12/12/2021 4:51 AM 5:06 EDT AM EDT Resulting Agency Comment Spec In Lab Bijan Sun MD HEMATOLOGY ORDERABLES Performing Organization Address City/State/[place] [address] (ABNORMAL) Prothrombin Time (12/12/2021 4:51 AM EDT) P athologist Signature PT 14.9 (H) 9.4 - 12.5 [facility] sec [facility] INR 1.3 [facility] Comment: An INR <2.0 indicates [...] Organization Address City/State/[place] [address] (ABNORMAL) BMP w/fasting Glucose (12/12/2021 4:51 AM EDT) athologist Signature Glucose 152 (H) 65 - 99 [facility] Fasting mg/dL [facility] Comment: ?Fasting* Glucose Interpretive [...] of Diabetes Mellitus, Position Statement from the [place] [employer]. ??Diabete s Care, Volume 33, Supplement 1, Jul 2009 BUN 52 (H) 10 - 20 mg/dL [facility] Creatinine 1.72 (H) 0.80 - 1.50 mg/dL [facility] Sodium 143 135 - 145 mmol/L [facility] Potassium 3.9 3.5 - 5.0 mmol/L [facility] Comment: Please note: ??Patients with WBC >100,00 0 may have falsely elevated Potassium levels. ??For accurate Potassium quantif ication in these patients send serum separator tube (gold top) for subsequent determinations. ??Contact the Clinical Chemistry Laboratory if there are any qu estions. Chloride 105 98 - 107 mmol/L [facility] CO2 21 (L) 22 - 31 mmol/L [facility] Anion Gap 17 (H) 5 - 15 mmol/L [facility] Calcium 8.9 8.5 - 10.5 mg/dL [facility] Estimated GFR 38 (L) >=60 mL/min/1.73 m?? [facility] Comment: This patient? s estimated [...] Cuevas MD CHEMISTRY ORDERABLES Performing Organization Address City/[facility]/[place]IP [place] [address] Magnesium (12/12/2021 4:51 AM EDT) athologist Signature Magnesium 1.02 0.69 - 1.07 [facility]/L [facility] Specimen Anatomical Collection Method Collection Time Receive d Time (Source) Location / / Volume Laterality Blood 12/12/2021 4:51 AM 2 5:06 EDT AM EDT Resulting Agency Comment Spec In Lab Iker Cuevas MD CHEMISTRY ORDERABLES Performing Organization Address City/[facility]/ZIP [place] [address] POCT Glucose (12/12/2021 3:43 AM EDT) P athologist Signature POC Glucose 138 65 - 199 [place] mg/dL [facility] Comment: Supplemental ranges: <140 mg/dL before meals <180 mg/dL all other times of the day Specimen Anatomical Collection Method Collection Time Receive d Time (Source) Location / / Volume Laterality Blood 12/12/2021 3:43 AM 2 3:43 EDT AM EDT Iker Cuevas MD POINT OF CARE TEST ORDERABLE S Performing Organization Address City/State/[place] [address] POCT Glucose (12/11/2021 11:44 PM EDT) athologist Signature POC Glucose 124 65 - 199 [facility] mg/dL [facility] Comment: Supplemental ranges: <140 mg/dL before meals <180 mg/dL all other times of the day Specimen Anatomical Collection Method Collection Time Receive d Time (Source) Location / / Volume Laterality Blood 12/11/2021 11:44 12/11/2021 PM EDT 11:44 PM EDT Iker Cuevas MD POINT OF CARE TEST ORDERABLE S Performing Organization Address City/State/ZIP [place] [address] (ABNORMAL) POCT Glucose (12/11/2021 8:12 PM EDT) athologist Signature POC Glucose 200 (H) 65 - 199 [facility] mg/dL [facility] Comment: Supplemental ranges: <140 mg/dL before meals <180 mg/dL all other times of the day Specimen Anatomical Collection Method Collection Time Receive d Time (Source) Location / / Volume Laterality Blood 12/11/2021 8:12 PM 2 8:12 EDT PM EDT Iker Cuevas MD POINT OF CARE TEST ORDERABLE S Performing Organization Address City/State/Z[place] [address] (ABNORMAL) POCT Glucose (12/11/2021 6:50 PM EDT) athologist Signature POC Glucose 245 (H) 65 - 199 [facility] mg/dL [facility] Comment: Supplemental ranges: <140 mg/dL before meals <180 mg/dL all other times of the day Specimen Anatomical Collection Method Collection Time Receive d Time (Source) Location / / Volume Laterality Blood 12/11/2021 6:50 PM 2 6:50 EDT PM EDT Iker Cuevas MD POINT OF CARE TEST ORDERABLE S Performing Organization Address City/State/ZIP [place] [address] (ABNORMAL) POCT Glucose (12/11/2021 4:00 PM EDT) athologist Signature POC Glucose 383 (H) 65 - 199 [facility]dL [facility] Comment: Supplemental ranges: <140 mg/dL before meals <180 mg/dL all other times of the day Specimen Anatomical Collection Method Collection Time Receive d Time (Source) Location / / Volume Laterality Blood 12/11/2021 4:00 PM 2 4:00 EDT PM EDT Iker Cuevas MD POINT OF CARE TEST ORDERABLE S Performing Organization Address City/State/[place] [address] (ABNORMAL) POCT Glucose (12/11/2021 12:01 PM EDT) athologist Signature POC Glucose 342 (H) 65 - 199 [facility]dL [facility] Comment: Supplemental ranges: <140 mg/dL before meals <180 mg/dL all other times of the day Specimen Anatomical Collection Method Collection Time Receive d Time (Source) Location / / Volume Laterality Blood 12/11/2021 12:01 12/11/2021 PM EDT 12:01 PM EDT Iker Cuevas MD POINT OF CARE TEST ORDERABLE S Performing Organization Address City/State/[place] [address] COVID-19 PCR (12/11/2021 10:13 AM EDT) [facility] Method Time Signature SARS-CoV-2 Not Detected Not Detected BARBARA RNA [facility] Comment: This result should [...] diagnosis of COVID-19 is performed using the [employer] S-CoV-2 Assay as authorized by the FDA Emergency Use Authorization (EUA). This EUA assay is intended for In-vitro Diagnostic (IVD) use with respiratory sp ecimens such as nasopharyngeal swabs collected from individuals during the ac terrence phase of infection. This assay is performed based on the instructions for use provided by [employer] and additional guidance provided by CDC and FDA. Testing is performed in the Clinical Genomics and [facility] Techn[facility] y Laboratory within the Department of Pathology and Laboratory Medicine at [facility], certified under the Clinical Laboratory Improvement [...] fact sheets at the following FDA website: https://www.fda.gov/medical-devices/drlqiwdnucy-ecbaahv-8732-xkylu-10-huvtgqluk- ydg-uijrncwpjzuusy-rygxtmu-devices/fsqzy-lnvszgtzzps-ucdo SARS-Cov-2 RNA Source CHIEF SCIENCE OFFICER Swab [facility] Specimen (Source) Anatomical Collection Method Collection Time Re ceived Time Location / / Volume Laterality Nasopharyngeal Swab 12/11/2021 10:13 0503/2022 AM EDT 11:16 AM EDT Comment: Symptoms->Surveillance Resulting Agency Comment Spec In Lab Iker Cuevas MD MICROBIOLOGY - GENERAL ORDER [place] Performing Organization Address City/State/ZIP [place] [address] POCT Glucose (12/11/2021 7:34 AM EDT) athologist Signature POC Glucose 198 65 - 199 [facility] mg/dL [facility] Comment: Supplemental ranges: <140 mg/dL before meals <180 mg/dL all other times of the day Specimen Anatomical Collection Method Collection Time Receive d Time (Source) Location / / Volume Laterality Blood 12/11/2021 7:34 AM 7:34 EDT AM EDT Iker Cuevas MD POINT OF CARE TEST ORDERABLE S Performing Organization Address City/[facility]/ZIP [place] [address] (ABNORMAL) POCT Glucose (12/11/2021 5:07 AM EDT) athologist Signature POC Glucose 208 (H) 65 - 199 [facility] mg/dL [facility] Comment: Supplemental ranges: <140 mg/dL before meals <180 mg/dL all other times of the day Specimen Anatomical Collection Method Collection Time Receive d Time (Source) Location / / Volume Laterality Blood 12/11/2021 5:07 AM 5:07 EDT AM EDT Iker Cuevas MD POINT OF CARE TEST ORDERABLE S Performing Organization Address City/State/[place] [address] (ABNORMAL) Differential, Automated (12/11/2021 4:28 AM EDT) [facility] Method Time Signature Neutrophils % 79.6 % [facility] Neutr Abs (ANC) 7.01 (H) 1.70 - [facility] 6.10 [facility] x10(3)/[facility] LABORATORY Lymphocytes % 9.1 % [facility] Lymphocytes Abs 0.8 (L) 0.9 - 3.2 [facility] x10(3)/[facility] LABORATORY Monocytes % 9.2 % [facility] Monocyte Abs 0.8 0.3 - 0.9 [facility] x10(3)/[facility] LABORATORY Eosinophils % 1.3 % [facility] Eosinophils Abs 0.1 0.0 - 0.4 [facility] x10(3)/[facility] LABORATORY Basophils % 0.5 % [facility] Basophils Abs 0.0 0.0 - 0.1 [facility] x10(3)/[facility] LABORATORY Immature Gran % 0.30 % [facility] Comment: Immature granulocytes(IG's)percentage an d absolute count will include metamyelocytes, myelocytes, and promyelo cytes. Blood smears from CBCs yielding IG's will be scanned manually for concor dance. If this scan disagrees with the automated IG or if promyelocytes are not ed, a manual differential will be performed. Melisa Gran Abs 0.03 0.00 - 0.04 x10(3)/[facility] MAR Y [facility] Specimen Anatomical Collection Method Collection Time Receive d Time (Source) Location / / Volume Laterality Blood 12/11/2021 4:28 AM 2 4:37 EDT AM EDT Resulting Agency Comment Spec In Lab Bijan Sun MD HEMATOLOGY ORDERABLES Performing Organization Address City/State/ZIP [place] [address] (ABNORMAL) Hemogram (12/11/2021 4:28 AM EDT) Analysis Performed At Patho logist Time Signature WBC 8.8 4.0 - 9.5 [facility] x[facility](3)/[facility] LABORATORY RBC 4.15 (L) 4.58 - [facility] 5.54 [facility] x10(6)/[facility] LABORATORY Hemoglobin 11.9 (L) 13.7 - [facility] 16.5 g/dL [facility] Hematocrit 36.9 (L) 40.5 - [facility] 48.5 % [facility] MCV 88.9 82.9 - [facility] 93.1 [facility] LABORATORY MCH 28.7 27.5 - [facility] 32.1 pg [facility] MCHC 32.2 32.0 - [facility] 35.7 g/dL [facility] Platelets 211 145 - 357 [facility] x10(3)/[facility] LABORATORY RDWSD 48.3 (H) 36.0 - [facility] 45.0 [facility] LABORATORY RDWCV 14.8 (H) 11.4 - [facility] 13.8 % [facility] MPV 9.6 7.6 - 12.9 [facility] LABORATORY nRBC % Auto 0.0 % [facility] nRBC Abs Auto 0.000 0.000 - [place] [facility] 0.000 [facility] x10(3)/[facility] LABORATORY Specimen Anatomical Collection Method Collection Time Receive d Time (Source) Location / / Volume Laterality Blood 12/11/2021 4:28 AM 2 4:37 EDT AM EDT Resulting Agency Comment Spec In Lab Bijan Sun MD HEMATOLOGY ORDERABLES Performing Organization Address City/State/[place] [address] (ABNORMAL) Prothrombin Time (12/11/2021 4:28 AM EDT) athologist Signature PT 17.7 (H) 9.4 - 12.5 [facility] LABORATORY INR 1.6 [facility] Comment: An INR <2.0 indicates [...] Organization Address City/State/ZIP Code Phon e Number [place] [id number] (ABNORMAL) BMP w/fasting Glucose (12/11/2021 4:28 AM EDT) athologist Signature Glucose 207 (H) 65 - 99 [facility] Fasting mg/dL [facility] Comment: ?Fasting* Glucose Interpretive [...] of Diabetes Mellitus, Position Statement from the [employer]. ??Diabete s Care, Volume 33, Supplement 1, Jul 2009 BUN 49 (H) 10 - 20 mg/dL [facility] Creatinine 1.43 0.80 - 1.50 mg/dL [facility] [...] estions. Chloride 104 98 - 107 mmol/L [facility] CO2 23 22 - 31 mmol/L [facility] Anion Gap 15 5 - 15 mmol/L [facility] Calcium 8.6 8.5 - 10.5 mg/dL [facility] Estimated GFR 48 (L) >=60 mL/min/1.73 m?? [facility] Comment: This patient? s estimated [...] Organization Address City/State/[place] [address] Magnesium (12/11/2021 4:28 AM EDT) athologist Signature Magnesium 1.04 0.69 - 1.07 [facility] mmol/L [facility] Specimen Anatomical Collection Method Collection Time Receive d Time (Source) Location / / Volume Laterality Blood 12/11/2021 4:28 AM 2 4:37 EDT AM EDT Resulting Agency Comment Spec In Lab Iker Cuevas MD CHEMISTRY ORDERABLES Performing Organization Address City/State/ZIP Code Phon e Number [address] POCT Glucose (12/11/2021 3:58 AM EDT) athologist Signature POC Glucose 189 65 - 199 [facility] mg/dL [facility] Comment: Supplemental ranges: <140 mg/dL before meals <180 mg/dL all other times of the day Specimen Anatomical Collection Method Collection Time Receive d Time (Source) Location / / Volume Laterality Blood 12/11/2021 3:58 AM 2 3:58 EDT AM EDT Iker Cuevas MD POINT OF CARE TEST ORDERABLE S Performing Organization Address City/State/Z[place] [address] (ABNORMAL) POCT Glucose (12/10/2021 11:45 PM EDT) athologist Signature POC Glucose 205 (H) 65 - 199 [facility] mg/dL [facility] Comment: Supplemental ranges: <140 mg/dL before meals <180 mg/dL all other times of the day Specimen Anatomical Collection Method Collection Time Receive d Time (Source) Location / / Volume Laterality Blood 12/10/2021 11:45 12/10/2021 PM EDT 11:45 PM EDT Iker Cuevas MD POINT OF CARE TEST ORDERABLE S Performing Organization Address City/State/ZIP Code Phon e Number [address] (ABNORMAL) POCT Glucose (12/10/2021 7:54 PM EDT) athologist Signature POC Glucose 225 (H) 65 - 199 [facility] mg/dL [facility] Comment: Supplemental ranges: <140 mg/dL before meals <180 mg/dL all other times of the day Specimen Anatomical Collection Method Collection Time Receive d Time (Source) Location / / Volume Laterality Blood 12/10/2021 7:54 PM 2 7:54 EDT PM EDT Iker Cuevas MD POINT OF CARE TEST ORDERABLE S Performing Organization Address City/[facility]/ZIP [place] [address] Potassium (12/10/2021 7:46 PM EDT) athologist Signature Potassium 4.2 3.5 - 5.0 [facility] mmol/L [facility] Comment: Please note: [...] Cuevas MD CHEMISTRY ORDERABLES Performing Organization Address City/[facility]/ZIP [place] [address] (ABNORMAL) Basic Metabolic Panel (non-fasting) (12/10/2021 6:12 PM EDT) athologist Signature Glucose Lvl 246 (H) 65 - 199 [facility] mg/dL [facility] Comment: Diabetes: >=200 mg/dL plus symp toms BUN 50 (H) 10 - 20 mg/dL [facility] Creatinine 1.39 0.80 - 1.50 mg/dL [facility] Sodium 138 135 - 145 mmol/L [facility] Potassium Not Perf 3.5 - 5.0 [facility] LABOR[facility] Comment: Unable to quantitate [...] estions. Chloride 100 98 - 107 mmol/L [facility] CO2 22 22 - 31 mmol/L [facility] Anion Gap 16 (H) 5 - 15 mmol/L [facility] Calcium 8.3 (L) 8.5 - 10.5 mg/dL [facility] Estimated GFR 49 (L) >=60 mL/min/1.73 m?? [facility] Comment: This patient? s estimated [...] Organization Address City/State/[place] [address] POCT Glucose (12/10/2021 4:59 PM EDT) athologist Signature POC Glucose 158 65 - 199 [facility] mg/dL [facility] Comment: Supplemental ranges: <140 mg/dL before meals <180 mg/dL all other times of the day Specimen Anatomical Collection Method Collection Time Receive d Time (Source) Location / / Volume Laterality Blood 12/10/2021 4:59 PM 4:59 EDT PM EDT Iker Cuevas MD POINT OF CARE TEST ORDERABLE S Performing Organization Address City/State/ZIP [place] [address] (ABNORMAL) POCT Glucose (12/10/2021 12:43 PM EDT) P athologist Signature POC Glucose 241 (H) 65 - 199 [facility] mg/dL [facility] Comment: Supplemental ranges: <140 mg/dL before meals <180 mg/dL all other times of the day Specimen Anatomical Collection Method Collection Time Receive d Time (Source) Location / / Volume Laterality Blood 12/10/2021 12:43 12/10/2021 PM EDT 12:43 PM EDT Iker Cuevas MD POINT OF CARE TEST ORDERABLE S Performing Organization Address City/[facility]/ZIP [place] [address] EKG 12 Lead (12/10/2021 11:17 AM EDT) Component Value Ref Range Test Analysis Performed Pathologis t Method Time At Signature Ventricular rate 62 BPM MUSE SYSTEM Atrial Rate 62 BPM MUSE SYSTEM P-R Interval 142 ms MUSE SYSTEM QRS Duration 100 ms MUSE SYSTEM Q-T Interval 434 ms MUSE SYSTEM QTC Calculated 440 ms MUSE SYSTEM (Bezet) Calculated P [place] 34 degrees MUSE SYSTEM Calculated R [place] -39 degrees MUSE SYSTEM Calculated T [place] 92 degrees MUSE SYSTEM INTERPRETATION Normal sinus rhythm MUSE SYSTEM Left axis deviation Minimal voltage criteria for LVH, may be normal variant ( Kalama product ) Cannot rule out Inferior infarct [...] SYSTEM - 12/10/2021 12:04 PM E DT ?[facility] ? Cardiac Cathete rization/Intervention Report ? Patient Name: Don Fatima. ? Procedure Date: 12/10/2021 ? A #: [id number] ? Primary Physician: Vitaliy Nobles ? Case #: [id number] ? File Name: [id number] ? Catheterization Order Number: [id number] ? [facility] ? Final Report [place], [place] ? Patient Name: ? Don E. Stewa rt ? ID#: ?[id number] ? : ?1945 ? Procedure Date: ? December 10, 2021 ? Case #: ? [id number] ? Room: ? 1 ? Case Physician: [...] was ?designated as ASA Class III. e [facility] clinical frailty scale is 5: Mildly ?Frail. [...] procedure was Urgent. The indication for ?the laboratory equipment cleaner visit is ACS great er than 24 [...] ?3.75 guiding catheter and a 3.5 Fr [place] [facility] [place] 20 Mhz using Manual ?pullback. ??Imaging was [...] ?3.75 guiding catheter and a 3.5 Fr [place] 20 Mhz using Manual ?pullback. ??Imaging was [...] may require ?modification of this regimen. C [facility] Interventional Cardiology for ?questions. ?The 1 year bleeding risk as nusrat culated by the PRECISE DAPT score is High ?risk. ?High Bleeding Risk - Anticoagul ation and DAPT: ?- ??Assess ischemic and bleedin g risks using validated risk predictors ?(e.g. CHADS2-VASC, HAS-BLED, [place] ECISE DAPT, DAPT Score) ?- ??Keep anticoagulant [...] Procedure Note Vitaliy Nobles MD - 01/14/2022 [facility] Cardiac Catheterization/Intervention Re port Patient Name: Don Fatima Procedure Date: 12/10/2021 A #: [id number] Primary Physician: Vitaliy Nobles Case #: [id number] File Name: [id number] Catheterization Order Number: [id number] [facility] Final Report [place], [place] Patient Name: Don Fatima ID#: [...] e was Urgent. The indication for the laboratory equipment cleaner visit is ACS greater than 24 hrs [...] and a 3.5 Fr [place] 20 Mhz using Manual pullback. Imaging was [...] and a 3.5 Fr [place] 20 Mhz using Manual pullback. Imaging was successful. Image quality was good. The distal LM showed moderate diffuse atherosclero tic plaque. Post Intervention: The stent was well e xpanded and apposed. Indication for Intervention: Coronary intervention was indicated for primary therapy for an acute myocardial infarction. The priority for the procedure was Urgent. [facility] was N MARKIE-ACS. [...] modification of this regimen. Consult D [facility] Interventional Cardiology for questions. The 1 year [...] POC Glucose 262 (H) 65 - 199 [facility] mg/dL [facility] Comment: Supplemental ranges: <140 mg/dL before meals <180 mg/dL all other times of the day Specimen Anatomical Collection Method Collection Time Receive d Time (Source) Location / / Volume Laterality Blood 12/10/2021 10:30 12/10/2021 AM EDT 10:30 AM EDT Iker Cuevas MD POINT OF CARE TEST ORDERABLE S Performing Organization Address City/State/[place] [address] (ABNORMAL) POCT Glucose (12/10/2021 9:48 AM EDT) athologist Signature POC Glucose 279 (H) 65 - 199 [facility] mg/dL [facility] Comment: Supplemental ranges: <140 mg/dL before meals <180 mg/dL all other times of the day Specimen Anatomical Collection Method Collection Time Receive d Time (Source) Location / / Volume Laterality Blood 12/10/2021 9:48 AM 2 9:48 EDT AM EDT Iker Cuevas MD POINT OF CARE TEST ORDERABLE S Performing Organization Address City/State/ZIP [place] [address] (ABNORMAL) POCT Glucose (12/10/2021 9:07 AM EDT) athologist Signature POC Glucose 268 (H) 65 - 199 [facility] mg/dL [facility] Comment: Supplemental ranges: <140 mg/dL before meals <180 mg/dL all other times of the day Specimen Anatomical Collection Method Collection Time Receive d Time (Source) Location / / Volume Laterality Blood 12/10/2021 9:07 AM 2 9:07 EDT AM EDT Iker Cuevas MD POINT OF CARE TEST ORDERABLE S Performing Organization Address City/State/Z[place] [address] (ABNORMAL) Point of Care Blood Gas Historical (12/10/2021 9:04 AM EDT) [facility] Method Time Signature POC pH 7.40 7.35 - [facility] 7.45 [facility] POC PCO2 40 35 - 45 [facility] mmHg [facility] POC PO2 63 (L) 85 - 104 [facility] mmHg [facility] POC Base Excess 0.0 -3.0 - 3.0 [facility] K mmol/L [facility] LABORATORY POC HCO3 24.8 20.0 - [facility] 26.0 [facility] mmol/[facility] LABORATORY POC Sodium 143 135 - 145 [facility] mmol/L [facility] POC Potassium 3.7 3.5 - 5.0 [facility] mmol/L [facility]OR[facility] POC Ionized Ca 1.07 (L) 1.15 - [facility] 1.33 [facility] mmol/L [facility] LABORATORY POC Hematocrit 30.0 (L) 40.0 - [facility] 51.0 % [facility]OR[facility] POC Calc Hgb 10.2 (L) 13.7 - [facility] 17.5 g/dL [facility] Comment: The calculation of hemoglobin f rom hematocrit assumes a normal MCHC. POC Bgas Loc CC LAB [facility] LABORATORY Specimen Anatomical Collection Method Collection Time Receive d Time (Source) Location / / Volume Laterality Blood 12/10/2021 9:04 AM 2 EDT 12:00 PM EDT Ifeanyi Truong MD CHEMISTRY ORDERABLES Performing Organization Address City/[facility]/ZIP [place] [address] (ABNORMAL) POCT Glucose (12/10/2021 7:19 AM EDT) athologist Signature POC Glucose 274 (H) 65 - 199 [facility] mg/dL [facility] Comment: Supplemental ranges: <140 mg/dL before meals <180 mg/dL all other times of the day Specimen Anatomical Collection Method Collection Time Receive d Time (Source) Location / / Volume Laterality Blood 12/10/2021 7:19 AM 2 7:19 EDT AM EDT Iker Cuevas MD POINT OF CARE TEST ORDERABLE S Performing Organization Address City/[facility]/ZIP [place] [address] Heparin (unfractionated) Level (12/10/2021 4:25 AM EDT) athologist Signature Heparin UFH 0.69 IU/mL [facility] LABORATORY Comment: Heparin (anti-Xa) levels should be [...] Organization Address City/State/[place] [address] (ABNORMAL) Differential, Automated (12/10/2021 4:25 AM EDT) [facility] Method Time Signature Neutrophils % 79.8 % [facility] LABORATORY Neutr Abs (ANC) 7.47 (H) 1.70 - [facility] 6.10 [facility] x10(3)/[facility] LABORATORY Lymphocytes % 10.6 % [facility] LABORATORY Lymphocytes Abs 1.0 0.9 - 3.2 [facility] x10(3)/[facility] LABORATORY Monocytes % 8.4 % [facility] LABORATORY Monocyte Abs 0.8 0.3 - 0.9 [facility] x10(3)/[facility] LABORATORY Eosinophils % 0.6 % [facility] LABORATORY Eosinophils Abs 0.1 0.0 - 0.4 [facility] x10(3)/[facility] LABORATORY Basophils % 0.2 % [facility] LABORATORY Basophils Abs 0.0 0.0 - 0.1 [facility] x10(3)/[facility] LABORATORY Immature Gran % 0.40 % [facility] LABORATORY Comment: Immature granulocytes(IG's)percentage an d absolute count will include metamyelocytes, myelocytes, and promyelo cytes. Blood smears from CBCs yielding IG's will be scanned manually for concor dance. If this scan disagrees with the automated IG or if promyelocytes are not ed, a manual differential will be performed. Melisa Gran Abs 0.04 0.00 - 0.04 x10(3)/[facility] MAR Y [facility] LABORATORY Specimen Anatomical Collection Method Collection Time Receive d Time (Source) Location / / Volume Laterality Blood 12/10/2021 4:25 AM 2 4:34 EDT AM EDT Resulting Agency Comment Spec In Lab Morgan BROWN HEMATOLOGY ORDERABLES Performing Organization Address City/State/[place] [address] (ABNORMAL) Hemogram (12/10/2021 4:25 AM EDT) Analysis Performed At Patho logist Time Signature WBC 9.4 4.0 - 9.5 [facility] x10(3)/[facility] LABORATORY RBC 3.81 (L) 4.58 - [facility] 5.54 [facility] x10(6)/[facility] LABORATORY Hemoglobin 11.1 (L) 13.7 - [facility] 16[facility] g/dL [facility] LABORATORY Hematocrit 34.0 (L) 40.5 - [facility] 48.5 % [facility] LABORATORY MCV 89.2 82.9 - [facility] 93.1 [facility] LABORATORY MCH 29.1 27.5 - [facility] 32.1 pg [facility]ORATORY MCHC 32.6 32.0 - [facility] 35.7 g/dL [facility] Platelets 183 145 - 357 [facility] x10(3)/[facility] LABORATORY RDWSD 49.9 (H) 36.0 - [facility] 45.0 [facility] LABORATORY RDWCV 15.2 (H) 11.4 - [facility] 13.8 % [facility] LABORATORY MPV 9.8 7.6 - 12.9 [facility] LABORATORY nRBC % Auto 0.0 % [facility] LABORATORY nRBC Abs Auto 0.000 0.000 - [facility] RYAN 0.000 [facility] x10(3)/[facility] LABORATORY Specimen Anatomical Collection Method Collection Time Receive d Time (Source) Location / / Volume Laterality Blood 12/10/2021 4:25 AM 2 4:34 EDT AM EDT Resulting Agency Comment Spec In Lab Morgan BROWN HEMATOLOGY ORDERABLES Performing Organization Address City/State/[place] [address] (ABNORMAL) Prothrombin Time (12/10/2021 4:25 AM EDT) P athologist Signature PT 20.0 (H) 9.4 - 12.5 [facility] LABORATORY INR 1.7 [facility] LABORATORY Comment: An INR <2.0 indicates [...] Organization Address City/State/[place] [address] (ABNORMAL) BMP w/fasting Glucose (12/10/2021 4:25 AM EDT) P athologist Signature Glucose 210 (H) 65 - 99 [facility] Fasting mg/dL [facility] LABORATORY Comment: ?Fasting* Glucose Interpretive [...] of Diabetes Mellitus, Position Statement from the [employer] Diabetes Association. ??Diabete s Care, Volume 33, Supplement 1, Jul 2009 BUN 54 (H) 10 - 20 mg/dL [facility] LABORATORY Creatinine 1.52 (H) 0.80 - 1.50 mg/dL [facility] LABORATORY Sodium 140 135 - 145 mmol/L [facility] LABORATORY Potassium 3.9 3.5 - 5.0 mmol/L [facility] LABORATORY Comment: Please note: ??Patients with WBC >100,00 0 may have falsely elevated Potassium levels. ??For accurate Potassium quantif ication in these patients send serum separator tube (gold top) for subsequent determinations. ??Contact the Clinical Chemistry Laboratory if there are any qu estions. Chloride 104 98 - 107 mmol/L [facility] LABORATORY CO2 23 22 - 31 mmol/L [facility] LABORATORY Anion Gap 13 5 - 15 mmol/L [facility] LABORATORY Calcium 8.0 (L) 8.5 - 10.5 mg/dL [facility] LABORATORY Estimated GFR 44 (L) >=60 mL/min/1.73 m?? [facility] LABORATORY Comment: This patient? s estimated [...] Organization Address City/State/[place] [address] Magnesium (12/10/2021 4:25 AM EDT) athologist Signature Magnesium 0.95 0.69 - 1.07 [facility] R[facility]AN mmol/L [facility] LABORATORY Specimen Anatomical Collection Method Collection Time Receive d Time (Source) Location / / Volume Laterality Blood 12/10/2021 4:25 AM 2 4:34 EDT AM EDT Resulting Agency Comment Spec In Lab Iker Cuevas MD CHEMISTRY ORDERABLES Performing Organization Address City/State/ZIP Code Phon e Number [address] POCT Glucose (12/10/2021 1:58 AM EDT) athologist Signature POC Glucose 164 65 - 199 [facility] mg/dL [facility] LABORATORY Comment: Supplemental ranges: <140 mg/dL before meals <180 mg/dL all other times of the day Specimen Anatomical Collection Method Collection Time Receive d Time (Source) Location / / Volume Laterality Blood 12/10/2021 1:58 AM 2 1:58 EDT AM EDT Iker Cuevas MD POINT OF CARE TEST ORDERABLE S Performing Organization Address City/[facility]/ZIP Code Phon e Number [address] (ABNORMAL) POCT Glucose (12/09/2021 9:02 PM EDT) athologist Signature POC Glucose 313 (H) 65 - 199 [place] mg/dL [facility] LABORATORY Comment: Supplemental ranges: <140 mg/dL before meals <180 mg/dL all other times of the day Specimen Anatomical Collection Method Collection Time Receive d Time (Source) Location / / Volume Laterality Blood 12/09/2021 9:02 PM 2 9:02 EDT PM EDT Iker Cuevas MD POINT OF CARE TEST ORDERABLE S Performing Organization Address City/State/ZIP [place] [address] Heparin (unfractionated) Level (12/09/2021 7:30 PM EDT) athologist Signature Heparin UFH 0.48 IU/mL [facility] LABORATORY Comment: Heparin (anti-Xa) levels should be [...] Organization Address City/State/[place] [address] (ABNORMAL) Basic Metabolic Panel (non-fasting) (12/09/2021 7:30 PM EDT) athologist Signature Glucose Lvl 372 (H) 65 - 199 [facility] mg/dL [facility] LABORATORY Comment: Diabetes: >=200 mg/dL plus symp toms BUN 56 (H) 10 - 20 mg/dL [facility] LABORATORY Creatinine 1.75 (H) 0.80 - 1.50 mg/dL [facility] LABORATORY Sodium 138 135 - 145 mmol/L [facility] LABORATORY Potassium 4.2 3.5 - 5.0 mmol/L [facility] LABORATORY Comment: Please note: ??Patients with WBC >100,00 0 may have falsely elevated Potassium levels. ??For accurate Potassium quantif ication in these patients send serum separator tube (gold top) for subsequent determinations. ??Contact the Clinical Chemistry Laboratory if there are any qu estions. Chloride 102 98 - 107 mmol/L [facility] LABORATORY CO2 22 22 - 31 mmol/L [facility] LABORATORY Anion Gap 14 5 - 15 mmol/L [facility] LABORATORY Calcium 8.1 (L) 8.5 - 10.5 mg/dL [facility] LABORATORY Estimated GFR 37 (L) >=60 mL/min/1.73 m?? [facility] LABORATORY Comment: This patient? s estimated [...] Organization Address City/State/[place] [address] (ABNORMAL) POCT Glucose (12/09/2021 6:34 PM EDT) P athologist Signature POC Glucose 408 (H) 65 - 199 [facility] mg/dL [facility] LABORATORY Comment: Supplemental ranges: <140 mg/dL before meals <180 mg/dL all other times of the day Specimen Anatomical Collection Method Collection Time Receive d Time (Source) Location / / Volume Laterality Blood 12/09/2021 6:34 PM 2 6:34 EDT PM EDT Iker Cuevas MD POINT OF CARE TEST ORDERABLE S Performing Organization Address City/State/ZIP [place] [address] (ABNORMAL) POCT Glucose (12/09/2021 6:32 PM EDT) athologist Signature POC Glucose 356 (H) 65 - 199 [facility] mg[facility]dL [facility] LABORATORY Comment: Supplemental ranges: <140 mg/dL before meals <180 mg/dL all other times of the day Specimen Anatomical Collection Method Collection Time Receive d Time (Source) Location / / Volume Laterality Blood 12/09/2021 6:32 PM 2 6:32 EDT PM EDT Iker Cuevas MD POINT OF CARE TEST ORDERABLE S Performing Organization Address City/[facility]/ZIP [place] [address] (ABNORMAL) POCT Glucose (12/09/2021 4:19 PM EDT) athologist Signature POC Glucose 347 (H) 65 - 199 [facility] mg/dL [facility] LABORATORY Comment: Supplemental ranges: <140 mg/dL before meals <180 mg/dL all other times of the day Specimen Anatomical Collection Method Collection Time Receive d Time (Source) Location / / Volume Laterality Blood 12/09/2021 4:19 PM 2 4:19 EDT PM EDT Iker Cuevas MD POINT OF CARE TEST ORDERABLE S Performing Organization Address City/[facility]/ZIP [place] [address] Heparin (unfractionated) Level (12/09/2021 1:29 PM EDT) athologist Signature Heparin UFH 0.42 IU/mL [facility] LABORATORY Comment: Heparin (anti-Xa) levels should be [...] Organization Address City/State/ZIP [place] [address] (ABNORMAL) POCT Glucose (12/09/2021 12:02 PM EDT) athologist Signature POC Glucose 235 (H) 65 - 199 [facility] mg/dL [facility] LABORATORY Comment: Supplemental ranges: <140 mg/dL before meals <180 mg/dL all other times of the day Specimen Anatomical Collection Method Collection Time Receive d Time (Source) Location / / Volume Laterality Blood 12/09/2021 12:02 12/09/2021 PM EDT 12:02 PM EDT Iker Cuevas MD POINT OF CARE TEST ORDERABLE S Performing Organization Address City/[facility]/ZIP [place] [address] (ABNORMAL) POCT Glucose (12/09/2021 9:44 AM EDT) P athologist Signature POC Glucose 214 (H) 65 - 199 [facility] mg/dL [facility] LABORATORY Comment: Supplemental ranges: <140 mg/dL before meals <180 mg/dL all other times of the day Specimen Anatomical Collection Method Collection Time Receive d Time (Source) Location / / Volume Laterality Blood 12/09/2021 9:44 AM 2 9:44 EDT AM EDT Iker Cuevas MD POINT OF CARE TEST ORDERABLE S Performing Organization Address City/State/ZIP [place] [address] EKG 12 Lead (12/09/2021 7:57 AM EDT) Component Value Ref Range Test Analysis Performed Pathologis t Method Time At Signature Ventricular rate 101 BPM MUSE SYSTEM Atrial Rate 101 BPM MUSE SYSTEM P-R Interval 150 ms MUSE SYSTEM QRS Duration 112 ms MUSE SYSTEM Q-T Interval 364 ms MUSE SYSTEM QTC Calculated 471 ms MUSE SYSTEM (Bezet) Calculated P [place] 59 degrees MUSE SYSTEM Calculated R [place] -42 degrees MUSE SYSTEM Calculated T [place] 102 degrees MUSE SYSTEM INTERPRETATION Sinus tachycardia Occasional Premature ventricular com plexes MUSE SYSTEM Left axis deviation 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) Abnormal ECG When compared with ECG of 08-DEC-2021 16:40, Premature ventricular complexes are now Present Confirmed by MD Jim, Yoon ([id number]) on 12/10/2021 4:55:06 PM Specimen Anatomical Collection Method Collection Time Receive d Time (Source) Location / / Volume Laterality 12/09/2021 7:57 AM 2 4:55 EDT PM EDT Iker Cuevas MD ECG ORDERABLES Performing Organization Address City/State/ZIP Code Phon e Number MUSE SYSTEM (ABNORMAL) POCT Glucose (12/09/2021 7:28 AM EDT) P athologist Signature POC Glucose 263 (H) 65 - 199 [facility] mg/dL [facility] LABORATORY Comment: Supplemental ranges: <140 mg/dL before meals <180 mg/dL all other times of the day Specimen Anatomical Collection Method Collection Time Receive d Time (Source) Location / / Volume Laterality Blood 12/09/2021 7:28 AM 2 7:28 EDT AM EDT Iker Cuevas MD POINT OF CARE TEST ORDERABLE S Performing Organization Address City/State/[place] [address] (ABNORMAL) Hemoglobin A1c (12/09/2021 6:18 AM EDT) Analysis Performed At Patho logist Time Signature Hemoglobin A1C 7.4 (H) 4.3 - 5.6 [facility] LABORATORY Comment: Reference Range: 4.3 - [...] Mellitus, Diabetes Care 2013; 36: Suppl. 1, S67-61 Est Avg Gluc See note mg/dL [facility] Comment: Estimated Average [...] with hemoglobinopathies. Additional resources are available on [facility] ADA website. Macario HAMMOND, Ruthann J, Deysi R, et al. ??Tr anslating the A1C assay into estimated average glucose values. ??Diabetes Care 2008:31(8):0403-1559. Specimen Anatomical Collection Method Collection Time Receive d Time (Source) Location / / Volume Laterality Blood Venous Draw / 12/09/2021 6:18 AM 12/10/19 22 Unknown EDT 12:24 PM EDT Resulting Agency Comment Spec In Lab Migdalia BROWN CHEMISTRY ORDERABLES Performing Organization Address City/State/[place] [address] (ABNORMAL) Prothrombin Time (12/09/2021 6:18 AM EDT) athologist Signature PT 26.6 (H) 9.4 - 12.5 [facility] LABORATORY INR 2.3 [facility] LABORATORY Comment: An INR <2.0 indicates [...] Migdalia BROWN HEMATOLOGY ORDERABLES Performing Organization Address City/State/[place] [address] Heparin (unfractionated) Level (12/09/2021 6:18 AM EDT) athologist Signature Heparin UFH 0.24 IU/mL [facility] LABORATORY Comment: Heparin (anti-Xa) levels should be [...] Organization Address City/State/[place] [address] (ABNORMAL) Differential, Automated (12/09/2021 6:18 AM EDT) [facility] Method Time Signature Neutrophils % 91.5 % [facility] LABORATORY Neutr Abs (ANC) 15.78 (H) 1.70 - [facility] 6.10 [facility] x10(3)/[facility] L LABORATORY Lymphocytes % 2.9 % [facility] LABORATORY Lymphocytes Abs 0.5 (L) 0.9 - 3.2 [facility] x10(3)/[facility] LABORATORY Monocytes % 4.9 % [facility] LABORATORY Monocyte Abs 0.8 0.3 - 0.9 [facility] x10(3)/[facility] LABORATORY Eosinophils % 0.0 % [facility] LABORATORY Eosinophils Abs 0.0 0.0 - 0.4 [facility] x10(3)/[facility] LABORATORY Basophils % 0.2 % [facility] LABORATORY Basophils Abs 0.0 0.0 - 0.1 [facility] x10(3)/[facility] LABORATORY Immature Gran % 0.50 % [facility] LABORATORY Comment: Immature granulocytes(IG's)percentage an d absolute count will include metamyelocytes, myelocytes, and promyelo cytes. Blood smears from CBCs yielding IG's will be scanned manually for concor dance. If this scan disagrees with the automated IG or if promyelocytes are not ed, a manual differential will be performed. Melisa Gran Abs 0.09 (H) 0.00 - 0.04 x10(3)/[facility] LABORATORY Specimen Anatomical Collection Method Collection Time Receive d Time (Source) Location / / Volume Laterality Blood 12/09/2021 6:18 AM 2 6:33 EDT AM EDT Resulting Agency Comment Spec In Lab Morgan BROWN HEMATOLOGY ORDERABLES Performing Organization Address City/State/[place] [address] (ABNORMAL) Hemogram (12/09/2021 6:18 AM EDT) Analysis Performed At Patho logist Time Signature WBC 17.2 (H) 4.0 - 9.5 [facility] LABORATORY RBC 4.32 (L) 4.58 - [facility] 5.54 [facility] x10(6)/[facility] LABORATORY Hemoglobin 12.6 (L) 13.7 - [facility] 16.5 g/dL [facility] LABORATORY Hematocrit 38.9 (L) 40.5 - [facility] 48.5 % [facility] LABORATORY MCV 90.0 82.9 - [facility] 93.1 [facility] LABORATORY MCH 29.2 27.5 - [facility] 32.1 pg [facility] LABORATORY MCHC 32.4 32.0 - [facility] 35.7 g/dL [facility] LABORATORY Platelets 193 145 - 357 [facility] x10(3)/[facility] LABORATORY RDWSD 50.4 (H) 36.0 - [facility] 45.0 [facility] LABORATORY RDWCV 15.2 (H) 11.4 - [facility] 13.8 % [facility] LABORATORY MPV 9.5 7.6 - 12.9 [facility] LABORATORY nRBC % Auto 0.0 % [facility] LABORATORY nRBC Abs Auto 0.000 0.000 - [facility] 0.000 [facility] x10(3)/[facility] LABORATORY Specimen Anatomical Collection Method Collection Time Receive d Time (Source) Location / / Volume Laterality Blood 12/09/2021 6:18 AM 2 6:33 EDT AM EDT Resulting Agency Comment Spec In Lab Morgan BROWN HEMATOLOGY ORDERABLES Performing Organization Address City/State/[place] [address] Lipid Panel (Reflex Direct LDL) (12/09/2021 6:18 AM EDT) P athologist Signature Chol, Total 105 mg/dL [facility] LABORATORY Comment: Lower Risk: <200 mg/dL Average Risk: 200-239 mg/dL Higher Risk: >et=717 mg/dL Triglycerides 133 mg/dL [facility] LABORATORY Comment: Average Risk/Lower Risk: <150 mg/dL Borderline High Risk: 150-199 mg/dL High Risk: 200-499 mg/dL Very High Risk: >lh=676 mg/dL HDL 42 mg/dL [facility] LABORATORY Comment: Males: ?? Higher Risk: <40 mg/dL Females: ?? Higher Risk: <50 mg/dL LDL Cholesterol 36 mg/dL [facility] LABORATORY Comment: Lowest Risk: <100 mg/dL Lower Risk: 100-129 mg/dL Borderline High Risk: 130-159 mg/dL High Risk: 160-189 mg/dL Very High Risk: >zt=345 mg/dL Chol/HDL Ratio 2.5 ratio [facility] LABORATORY Lipid Interpretation See Note [facility] LABORATORY Comment: Lipid management should be guided by a p atient? s ASCVD risk, goals and preferences. ACC/AHA Guidelines recommend high intens ity statin if clinical ASCVD or LDL greater than or equal to 190 mg/dL. [email or web address]://[employer] Business Plan/REL-PLO-Szacxarrs Adults aged 40-75 with LDL 70-189 mg/dL should have their 10 year ASCVD risk estimated with the ACC/AHA ASCVD risk es timator http://tools.acc.org/GQJLJ-Nncm-Arusskvq r/ Statin should be discussed if risk [...] Cuevas MD CHEMISTRY ORDERABLES Performing Organization Address City/[facility]/ZIP Code Phon e Number [address] TSH (12/09/2021 6:18 AM EDT) P athologist Signature TSH 1.60 0.27 - 4.20 [facility] mcIU/mL [facility] LABORATORY Comment: Reference Interval (mcIU/mL): Females: ??First Trimester: 0.23-3.88 ??Second Trimester: 0.22-3.90 ??Third Trimester: 0.44-4.66 Specimen Anatomical Collection Method Collection Time Receive d Time (Source) Location / / Volume Laterality Blood 12/09/2021 6:18 AM 2 6:33 EDT AM EDT Resulting Agency Comment Spec In Lab Iker Cuevas MD CHEMISTRY ORDERABLES Performing Organization Address [facility] [place] [address] Hepatic Function Panel (12/09/2021 6:18 AM EDT) P athologist Signature Total Protein 7.3 6.1 - 8.0 [facility] g/dL [facility] LABORATORY Albumin 4.2 3.2 - 5.2 [facility] g/dL [facility] LABORATORY AST 25 0 - 39 [facility] unit/L [facility] LABORATORY ALT 15 0 - 55 [facility] unit/L [facility] LABORATORY Alk Phos 75 40 - 130 [facility] unit/L [facility] LABORATORY Total 1.1 0.2 - 1.3 [facility] Bilirubin mg/dL [facility] LABORATORY Bili, Direct 0.2 0.0 - 0.3 [facility] mg/dL [facility] LABORATORY Specimen Anatomical Collection Method Collection Time Receive d Time (Source) Location / / Volume Laterality Blood 12/09/2021 6:18 AM 2 6:33 EDT AM EDT Resulting Agency Comment Spec In Lab Iker Cuevas MD CHEMISTRY ORDERABLES Performing Organization Address City/[facility]/[place] [address] (ABNORMAL) BMP w/fasting Glucose (12/09/2021 6:18 AM EDT) athologist Signature Glucose 235 (H) 65 - 99 [facility] Fasting mg/dL [facility] LABORATORY Comment: ?Fasting* Glucose Interpretive [...] of Diabetes Mellitus, Position Statement from the [employer]. ??Diabete s Care, Volume 33, Supplement 1, Jul 2009 BUN 49 (H) 10 - 20 mg/dL [facility] LABORATORY Creatinine 1.33 0.80 - 1.50 mg/dL [facility] LABORATORY Sodium 139 135 - 145 mmol/L [facility] LABORATORY Potassium 4.2 3.5 - 5.0 mmol/L [facility] LABORATORY Comment: Please note: ??Patients with WBC >100,00 0 may have falsely elevated Potassium levels. ??For accurate Potassium quantif ication in these patients send serum separator tube (gold top) for subsequent determinations. ??Contact the Clinical Chemistry Laboratory if there are any qu estions. Chloride 101 98 - 107 mmol/L [facility] LABORATORY CO2 21 (L) 22 - 31 mmol/L [facility] LABORATORY Anion Gap 17 (H) 5 - 15 mmol/L [facility] LABORATORY Calcium 8.8 8.5 - 10.5 mg/dL [facility] LABORATORY Estimated GFR 52 (L) >=60 mL/min/1.73 m?? [facility] LABORATORY Comment: This patient? s estimated [...] Cuevas MD CHEMISTRY ORDERABLES Performing Organization Address City/[facility]/ZIP [place] [address] Magnesium (12/09/2021 6:18 AM EDT) P athologist Signature Magnesium 0.81 0.69 - 1.07 [facility] mmol/L [facility] LABORATORY Specimen Anatomical Collection Method Collection Time Receive d Time (Source) Location / / Volume Laterality Blood 12/09/2021 6:18 AM 2 6:33 EDT AM EDT Resulting Agency Comment Spec In Lab Iker Cuevas MD CHEMISTRY ORDERABLES Performing Organization Address City/[facility] [place] [address] (ABNORMAL) Troponin (12/09/2021 6:18 AM EDT) P athologist Signature Troponin-T 1.13 (H) 0.00 - [facility] 0.00 ng/mL [facility] LABORATORY Comment: The 99th percentile for Troponin T is le ss than 0.01 ng/mL, any detectable cTnT concentration using this assay should be considered elevated. According to the third universal definit ion of myocardial infarction the following criteria with a clinical prese ntation consistent with acute myocardial ischemia meets the diagnosis for a myocardial infarction ([place]). Detection of a rise and/or fall of [...] additional sample may be indicated. Reference: Third Goldvein Definition of Myocardial Infarction. Journal of the [employer] College [employer] 2012;60:1581-98 Specimen Anatomical Collection Method Collection Time Receive d Time (Source) Location / / Volume Laterality Blood 12/09/2021 6:18 AM 6:33 EDT AM EDT Resulting Agency Comment Spec In Lab Iker Cuevas MD CHEMISTRY ORDERABLES Performing Organization Address City/State/ZIP [place] [address] XR Chest One View [...] who have questions please contact the health lawn caretaker that requested your imaging first. ? Narrative [...] ho have questions please contact the health lawn caretaker that requested your imaging first. Amber Sanches MD IMG DX ORDERABLES (ABNORMAL) BLOOD GAS 2 ARTERIAL (12/09/2021 5:14 AM EDT) Analysis Performed At Patho logist Time Signature pH Art 7.43 7.35 - [facility] 7.45 [facility] LABORATORY pCO2 Art 36 35 - 45 [facility] LABORATORY pO2 Art 67 (L) 85 - 104 [facility] LABORATORY HCO3 Art 23.4 20.0 - [facility] 26.0 [facility] mmol/L [facility] LABORATORY BE Art -0.9 -3.0 - 3.0 [facility] mmol/L [facility] LABORATORY Hgb Blood Gas 13.2 (L) 13.7 - [facility] 16.5 g/dL [facility] O2HB Art 91.3 (L) 94.0 - [facility] 97.0 % [facility] LABORATORY COHB Art 0.4 % [facility] LABORATORY Comment: Nonsmokers: 0.5-1.5% COHB Smokers: Variable, but usually less than 10% Toxic: 20-30% COHB Lethal: Greater than 60% COHB METHB Art 0.4 <=1.5 % [facility] LABORATORY Na Whole Blood 138 135 - 145 mmol/L [facility] LABORAT[facility] K Whole Blood 4.1 3.5 - 5.0 mmol/L [facility] LABORATORY Comment: Please note: Patients with WBC >100,000 may have falsely elevated Potassium levels. Contact the Clinical Chemistry L aboratory if there are any questions. ICa Whole Blood 1.09 (L) 1.15 - 1.33 mmol/L [facility] LABORATORY Comment: Note: ??Total bilirubin higher than 20 m g/dL may lead to falsely low ionized calcium. CL Whole Blood 104 98 - 107 mmol/L [facility] LABORATORY Gluc Whole Bld 223 (H) 65 - 199 mg/dL [facility] LABORATORY Comment: Diabetes: >=200 mg/dL plus symp toms. Lactate WB 2.7 (H) 0.5 - 2.2 mmol/L [facility] LABORATORY FIO2 Art 35 % [facility] LABORATORY Flow Art 8.0 LPM [facility] LABORATORY PF Ratio Art 191 [facility] Specimen Anatomical Collection Method Collection Time Receive d Time (Source) Location / / Volume Laterality Blood 12/09/2021 5:14 AM 2 5:14 EDT AM EDT Iker Cuevas MD CHEMISTRY ORDERABLES Performing Organization Address City/State/[place] [address] POCT Glucose (12/09/2021 4:46 AM EDT) athologist Signature POC Glucose 198 65 - 199 [place] mg/dL [facility] Comment: Supplemental ranges: <140 mg/dL before meals <180 mg/dL all other times of the day Specimen Anatomical Collection Method Collection Time Receive d Time (Source) Location / / Volume Laterality Blood 12/09/2021 4:46 AM 2 4:46 EDT AM EDT Iker Cuevas MD POINT OF CARE TEST ORDERABLE S Performing Organization Address City/State/[place] [address] (ABNORMAL) POCT Glucose (12/09/2021 3:01 AM EDT) athologist Signature POC Glucose 225 (H) 65 - 199 [place] mg/dL [facility] Comment: Supplemental ranges: <140 mg/dL before meals <180 mg/dL all other times of the day Specimen Anatomical Collection Method Collection Time Receive d Time (Source) Location / / Volume Laterality Blood 12/09/2021 3:01 AM 2 3:01 EDT AM EDT Iker Cuevas MD POINT OF CARE TEST ORDERABLE S Performing Organization Address City/State/[place] [address] (ABNORMAL) POCT Glucose (12/08/2021 10:55 PM EDT) P athologist Signature POC Glucose 327 (H) 65 - 199 [place] mg/dL [facility] Comment: Supplemental ranges: <140 mg/dL before meals <180 mg/dL all other times of the day Specimen Anatomical Collection Method Collection Time Receive d Time (Source) Location / / Volume Laterality Blood 12/08/2021 10:55 12/08/2021 PM EDT 10:55 PM EDT Iker Cuevas MD POINT OF CARE TEST ORDERABLE S Performing Organization Address City/[facility]/ZIP [place] [address] Heparin (unfractionated) Level (12/08/2021 10:03 PM EDT) athologist Signature Heparin UFH 0.18 IU/mL [facility] LABORATORY Comment: Heparin (anti-Xa) levels should be [...] Cuevas MD HEMATOLOGY ORDERABLES Performing Organization Address City/[facility]/ZIP [place] [address] (ABNORMAL) Troponin (12/08/2021 10:03 PM EDT) athologist Signature Troponin-T 0.92 (H) 0.00 - [facility] 0.00 ng/mL [facility] Comment: The 99th percentile for Troponin T is le ss than 0.01 ng/mL, any detectable cTnT concentration using this assay should be considered elevated. According to the third universal definit ion of myocardial infarction the following criteria with a clinical prese ntation consistent with acute myocardial ischemia meets the diagnosis for a myocardial infarction ([place]). Detection of a rise and/or fall of [...] additional sample may be indicated. Reference: Third Goldvein Definition of Myocardial Infarction. Journal of the [employer] College [employer]iology 2012;60:1581-98 Specimen Anatomical Collection Method Collection Time Receive d Time (Source) Location / / Volume Laterality Blood 12/08/2021 10:03 12/08/2021 PM EDT 10:31 PM EDT Resulting Agency Comment Spec In Lab Iker Cuevas MD CHEMISTRY ORDERABLES Performing Organization Address City/[facility]/ZIP [place] [address] (ABNORMAL) POCT Glucose (12/08/2021 8:22 PM EDT) athologist Signature POC Glucose 429 (H) 65 - 199 [facility] Comment: Supplemental ranges: <140 mg/dL before meals <180 mg/dL all other times of the day Specimen Anatomical Collection Method Collection Time Receive d Time (Source) Location / / Volume Laterality Blood 12/08/2021 8:22 PM 8:22 EDT PM EDT Iker Cuevas MD POINT OF CARE TEST ORDERABLE S Performing Organization Address City/[facility]/ZIP [place] [address] (ABNORMAL) POCT Glucose (12/08/2021 7:06 PM EDT) athologist Signature POC Glucose 442 (H) 65 - 199 [facility] Comment: Supplemental ranges: <140 mg/dL before meals <180 mg/dL all other times of the day Specimen Anatomical Collection Method Collection Time Receive d Time (Source) Location / / Volume Laterality Blood 12/08/2021 7:06 PM 2 7:06 EDT PM EDT Iker Cuevas MD POINT OF CARE TEST ORDERABLE S Performing Organization Address City/[facility]/ZIP Code Phon e Number [address] Magnesium (12/08/2021 6:02 PM EDT) athologist Signature Magnesium 0.86 0.69 - 1.07 [facility] mmol/L [facility] Specimen Anatomical Collection Method Collection Time Receive d Time (Source) Location / / Volume Laterality Blood 12/08/2021 6:02 PM 2 6:36 EDT PM EDT Resulting Agency Comment Spec In Lab Iker Cuevas MD CHEMISTRY ORDERABLES Performing Organization Address City/State/ZIP [place] [address] (ABNORMAL) Basic Metabolic Panel (non-fasting) (12/08/2021 6:02 PM EDT) athologist Signature Glucose Lvl 392 (H) 65 - 199 [facility] mg/dL [facility] Comment: Diabetes: >=200 mg/dL plus symp toms BUN 41 (H) 10 - 20 mg/dL [facility] Creatinine 1.44 0.80 - 1.50 mg/dL [facility] Sodium 138 135 - 145 mmol/L [facility] [...] estions. Chloride 102 98 - 107 mmol/L [facility] CO2 20 (L) 22 - 31 mmol/L [facility] Anion Gap 16 (H) 5 - 15 mmol/L [facility] Calcium 8.6 8.5 - 10.5 mg/dL [facility] Estimated GFR 47 (L) >=60 mL/min/1.73 m?? [facility] Comment: This patient? s estimated [...] Organization Address City/State/[place] [address] (ABNORMAL) Differential, Automated (12/08/2021 6:02 PM EDT) [facility] gist Method Time Signature Neutrophils % 89.5 % [facility] Neutr Abs (ANC) 13.97 (H) 1.70 - [facility] 6.10 [facility] x10(3)/[facility] L LABORATORY Lymphocytes % 3.7 % [facility] Lymphocytes Abs 0.6 (L) 0.9 - 3.2 [facility] x10(3)/[facility] LABORATORY Monocytes % 6.1 % [facility] Monocyte Abs 1.0 (H) 0.3 - 0.9 [facility] x10(3)/[facility] LABORATORY Eosinophils % 0.0 % [facility] Eosinophils Abs 0.0 0.0 - 0.4 [facility] x10(3)/[facility] LABORATORY Basophils % 0.2 % [facility] Basophils Abs 0.0 0.0 - 0.1 [facility] x10(3)/[facility] LABORATORY Immature Gran % 0.50 % [facility] Comment: Immature granulocytes(IG's)percentage an d absolute count will include metamyelocytes, myelocytes, and promyelo cytes. Blood smears from CBCs yielding IG's will be scanned manually for concor dance. If this scan disagrees with the automated IG or if promyelocytes are not ed, a manual differential will be performed. Melisa Gran Abs 0.08 (H) 0.00 - 0.04 x10(3)/[facility] LABORATORY Specimen Anatomical Collection Method Collection Time Receive d Time (Source) Location / / Volume Laterality Blood 12/08/2021 6:02 PM 6:36 EDT PM EDT Resulting Agency Comment Spec In Lab Morgan BROWN HEMATOLOGY ORDERABLES Performing Organization Address City/State/[place] [address] (ABNORMAL) Hemogram (12/08/2021 6:02 PM EDT) Analysis Performed At Patho logist Time Signature WBC 15.6 (H) 4.0 - 9.5 [facility] x10(3)/[facility] LABORATORY RBC 4.05 (L) 4.58 - [facility] 5.54 [facility] x10(6)/[facility] LABORATORY Hemoglobin 11.8 (L) 13.7 - [facility] 16.5 g/dL [facility] Hematocrit 35.8 (L) 40.5 - [facility] 48.5 % [facility] MCV 88.4 82.9 - [facility] 93.1 fL [facility] MCH 29.1 27.5 - [facility] 32.1 pg [facility] MCHC 33.0 32.0 - [facility] 35.7 g/dL [facility] Platelets 178 145 - 357 [place] DAVIS x10(3)/[facility] LABORATORY RDWSD 49.3 (H) 36.0 - [place] DAVIS 45.0 [facility] LABORATORY RDWCV 15.1 (H) 11.4 - [place] DAVIS 13.8 % [facility] MPV 10.4 7.6 - 12.9 [place] DAV[place] [facility] LABORATORY nRBC % Auto 0.0 % [facility] LAB[facility] nRBC Abs Auto 0.000 0.000 - [place] DAVIS 0.000 [facility] x10(3)/[facility] LABORATORY Specimen Anatomical Collection Method Collection Time Receive d Time (Source) Location / / Volume Laterality Blood 12/08/2021 6:02 PM 6:36 EDT PM EDT Resulting Agency Comment Spec In Lab Morgan BROWN HEMATOLOGY ORDERABLES Performing Organization Address City/State/[place] [address] (ABNORMAL) Troponin (12/08/2021 6:02 PM EDT) P athologist Signature Troponin-T 0.89 (H) 0.00 - [place] DAVIS 0.00 ng/mL [facility] Comment: The 99th percentile for Troponin T is le ss than 0.01 ng/mL, any detectable cTnT concentration using this assay should be considered elevated. According to the third universal definit ion of myocardial infarction the following criteria with a clinical prese ntation consistent with acute myocardial ischemia meets the diagnosis for a myocardial infarction ([place]). Detection of a rise and/or fall of [...] additional sample may be indicated. Reference: Third Goldvein Definition of Myocardial Infarction. Journal of the [employer] College of Cardiology 2012;60:1581-98 Specimen Anatomical Collection Method Collection Time Receive d Time (Source) Location / / Volume Laterality Blood 12/08/2021 6:02 PM 6:36 EDT PM EDT Resulting Agency Comment Spec In Lab Iker Cuevas MD CHEMISTRY ORDERABLES Performing Organization Address City/State/ZIP [place] [address] COVID-19 PCR (12/08/2021 5:00 PM EDT) [facility] Method Time Signature SARS-CoV-2 Not Detected Not Detected BARBARA RNA PCR [facility] Comment: This result should [...] using the Simplexa COVID-19 Direct Assay by [employer] Systemjoi marcum as authorized by the FDA issued [...] of Pathology and Laboratory Medicine at [facility], certified under the Clinical [...] fact sheets at the following FDA website: https://www.fda.gov/medical-devices/ivooxtponjp-ljbwkcm-1459-mbwse-51-acstjepfb- akw-upeiqwofpbocia-kyhsvdf-devices/nqkva-quxtddxboou-fvjh SARS-CoV-2 Source CHIEF SCIENCE OFFICER Swab [facility] Specimen (Source) Anatomical Collection Method Collection Time Re ceived Time Location / / Volume Laterality Nasopharyngeal Swab 12/08/2021 5:00 12/08 PM EDT 6:03 PM EDT Comment: Symptoms->Surveillance Resulting Agency Comment Spec In Lab Iker Cuevas MD MICROBIOLOGY - GENERAL ORDER [place] Performing Organization Address City/State/[place] [address] EKG 12 Lead (12/08/2021 4:40 PM EDT) Component Value Ref Range Test Analysis Performed Pathologis t Method Time At Signature Ventricular rate 78 BPM MUSE SYSTEM Atrial Rate 78 BPM MUSE SYSTEM P-R Interval 152 ms MUSE SYSTEM QRS Duration 96 ms MUSE SYSTEM Q-T Interval 396 ms MUSE SYSTEM QTC Calculated 451 ms MUSE SYSTEM (Bezet) Calculated P [place] 44 degrees MUSE SYSTEM Calculated R [place] -31 degrees MUSE SYSTEM Calculated T [place] 124 degrees MUSE SYSTEM INTERPRETATION Normal sinus [...] PM 2 4:34 EDT PM EDT Iker Ceuvas MD ECG ORDERABLES Performing Organization Address City/State/ZIP Code Phon e Number MUSE SYSTEM (ABNORMAL) POCT Glucose (12/08/2021 4:34 PM EDT) P athologist Signature POC Glucose 400 (H) 65 - 199 [facility] mg/dL [facility] Comment: Supplemental ranges: <140 mg/dL before meals <180 mg/dL all other times of the day Specimen Anatomical Collection Method Collection Time Receive d Time (Source) Location / / Volume Laterality Blood 12/08/2021 4:34 PM 2 4:34 EDT PM EDT Iker Cuevas MD POINT OF CARE TEST ORDERABLE S Performing Organization Address City/State/[place] [address] documented in this encounter [...] Given 11/23 10:30 AM EDT 300 mcg (GEOLOGY ASSOCIATE) ONCE PRN, Starting on Wed12/10/21 at 1030, [...] 12/12/2021 acetaminophen (Tylenol) tablet 650 mg 0805 ([facility] Hold - Provider: Admin Adt - Reason: Transfer to a Procedural area)1230 ([facility] Unhold - Provider: Admin Adt) 650 [...] Routine bisacodyL (Dulcolax) suppository 10 mg 0805 ([facility] Hold - Provider: Admin Adt - Reason: Transfer to a Procedural area)1230 ([facility] Unhold - Provider: Admin Adt) 10 mg, Rectal, DAILY PRN, Starting on e 12/09/21 at 1629, Until Wed12/12/21 at 1312, Constipation, Routine dextrose 10% infusion(Linked Group 2) 0805 ([facility] Hold - Provider: Admin Adt - Reason: Transfer to a Procedural area)1230 ([facility] Unhold - Provider: Admin Adt) 250 [...] (Intra-Procedure), Routine niCARdipine (Cardene) (100 mcg/mL) dilution (GEOLOGY ASSOCIATE) (CANCELED) 1030 (Given - Provider: Vitaliy [...] episode. & nbsp; For persistent hypoglycemia, con table operator longer-acting treatment for the duration of the [...]
Routine documented in this encounter Care Teams Medical Tech Relationship Specialty Start Date End Date Lovely Vicente MD PCP - General 04/16/[address] [place] [address] documented as of this encounter
--- OUTSIDE RECORDS SUMMARY | 2022-02-13 11:11 | XMS_ITS | Encounter Summary ---
:1945 Author Organization [facility] [place] [address] Care Team Providers Name Role Phone Lovely Vicente MD Primary Care Provider Reason for Visit Reason Comments Follow-up Skin Check Encounter Details Date Type Department Care Team Description 01/06/2018 Office Visit Dermatology at [facility] Form[facility] nevi; Abdelrahman HOOPER MD History of melanoma; [address] [facility] [place] [address] [facility] [place], [place] [address] Social History Tobacco Use Types [...] encounter. Rigoberto Garcia MD Section of Dermatology [facility] documented in this encounter Plan of Treatment Upcoming Encounters Date Type Specialty Care Team Description 02/19/2022 Laboratory Appointment Lab 02/19/2022 Office Visit Cardiology Liz Poole PA [facility] er Cardiology Dept [place], [place] [address] (Wo rk) 03/26/2022 Office Visit Cardiology Vitaliy Nobles MD [facility] CARDIOLOGY [place], [place] [address] (Wo rk) documented as of this encounter Visit Diagnoses Diagnosis Multiple nevi Benign neoplasm of skin, site unspecifie d History of melanoma Personal history of malignant melanoma o f skin Seborrheic keratosis Other seborrheic keratosis documented in this encounter Care Teams Craniologist Relationship Specialty Start Date End Date Lovely Vicente MD PCP - General 04/16/[address] [place] [address] documented as of this encounter
--- OUTSIDE RECORDS SUMMARY | 2022-02-13 11:11 | XMS_ITS | Encounter Summary ---
:1945 Author Organization [facility] [place] [address] Care Team Providers Name Role Phone Lovely Vicente MD Primary Care Provider Encounter Details Date Type Department Care Team Description 07/28/2019 Laboratory Appointment Lab 3L [facility] systolic [facility] [place] [address] Social History Tobacco Use Types Packs/Day Years [...] [facility] er Cardiology Dept [place], [place] [address] (Wo rk) 03/26/2022 Office Visit Cardiology Vitaliy Nobles MD [facility] ER CARDIOLOGY [place], [place] [address] (Wo rk) documented as of [...] athologist Signature ProBNP 647 (H) <=125 pg/mL [facility] LAB[facility] Specimen Anatomical Collection Method Collection Time Receive d Time (Source) Location / / Volume Laterality Blood specimen 07/28/2019 8:36 AM 020 8:46 (specimen) EST AM EST Resulting Agency Comment Spec In Lab Danette Maxwell APRN CHEMISTRY ORDERABLES Performing Organization Address City/State/ZIP Code Phon e Number [place] [id number] LAB[address] (ABNORMAL) Basic Metabolic Panel (non-fasting) (07/28/2019 8:36 AM EST) P athologist Signature Glucose Lvl 153 65 - 199 [facility] mg/dL [facility] Comment: Diabetes: >=200 mg/dL plus symp toms BUN 22 (H) 10 - 20 mg/dL [facility] Creatinine 1.05 0.80 - 1.50 mg/dL [facility] Sodium 141 135 - 145 mmol/L [facility] Potassium 4.5 3.5 - 5.0 mmol/L [facility] Comment: Please note: ??Patients with WBC >100,00 0 may have falsely elevated Potassium levels. ??For accurate Potassium quantif ication in these patients send serum separator tube (gold top) for subsequent determinations. ??Contact the Clinical Chemistry Laboratory if there are any qu estions. Chloride 100 98 - 107 mmol/L [facility] CO2 29 22 - 31 mmol/L [facility] Anion Gap 12 5 - 15 mmol/L [facility] Calcium 9.3 8.5 - 10.5 mg/dL [facility] Estimated GFR 70 >=60 mL/min/1.73 m?? [facility] Comment: The eGFR was calculated using the CKD-EP I equation. As with all creatinine based estimates of kidney function, eGFR values calculated with the CKD-EPI equation are not accurate in patients wi th acute kidney failure, extremes of body mass or the acutely ill. http://[employer]/[facility]YMONnkf eGFR 81 >=60 mL/min/1.73 m?? [facility] Comment: The eGFR was calculated using the CKD-EP I equation. As with all creatinine based estimates of kidney function, eGFR values calculated with the CKD-EPI equation are not accurate in patients wi th acute kidney failure, extremes of body mass or the acutely ill. http://[employer]/[facility] GUYMONnkf Specimen Anatomical Collection Method Collection Time Receive d Time (Source) Location / / Volume Laterality Blood specimen 07/28/2019 8:36 AM 020 8:46 (specimen) EST AM EST Resulting Agency Comment Spec In Lab Danette Maxwell APRN CHEMISTRY ORDERABLES Performing Organization Address City/State/[place] [address] documented in this encounter Visit Diagnoses Diagnosis Chronic systolic heart failure documented in this encounter Care Teams Final Assembler Boat Relationship Specialty Start Date End Date Lovely Vicente MD PCP - General 04/16/[address] [place] [address] documented as of this encounter
--- OUTSIDE RECORDS SUMMARY | 2022-02-13 11:11 | XMS_ITS | Encounter Summary ---
:1945 Author Organization [place] [place] [address] Care Team Providers Name Role Phone Lovely Vicente MD Primary Care Provider Encounter Details Date Type Department Care Team Description 08/15/2018 Office Visit Cardiology at [facility] Danette Maxwell Chronic systolic heart failu re; [facility] A, HAND BOOKBINDER Cardiomyopathy, ischemic; [facility] ASCVD (arteriosclerotic card iovascular disease); [place], [place] Essential hypertension; [phone] CARDIOLOGY MARIA VICTORIA on CPAP [phone] [place], [place] [address] Social History Tobacco Use Types [...] in this encounter Progress Notes Danette Maxwell, HAND BOOKBINDER - 08/15/2018 9:00 AM EST Images from [...] is always better at therapy Call to [facility] PT Denies lightheadedness or dizziness Denies pre-syncope [...] K+ 4.6 today 6. Post-op atrial fibrillation [id number] (CHF, HTN, DM, vascular disease, thromboembolism) Amiodarone discontinued Continue coumadin INR managed by PCP. 2.1 today 7. PAD 08/06/2017: Right 1st, 2nd, 3rd toe amputation 08/11/2017: Left??femoral arterial access, RLE??angiogram, Balloon angioplasty of R PT with Eleazar 2.5 x 80 10/25/2017: right popliteal-pedal bypass at [facility] 8. Hypothyrodism S/p thyroidectomy for goiter [...] Cardiology Liz Poole PA [facility] Cardiology Dept [place], [place] [address] (Wo rk) 03/26/2022 Office Visit Cardiology Vitaliy Nobles MD [facility] CARDIOLOGY [place], [place] [address] (Wo rk) documented as of this encounter Results Lipid Panel (08/15/2018 8:04 AM EST) athologist Signature Chol, Total 75 mg/dL [facility] Comment: Lower Risk: <200 mg/dL Average Risk: 200-239 mg/dL Higher Risk: >mm=349 mg/dL Triglycerides 185 mg/dL [facility] Comment: Average Risk/Lower Risk: <150 mg/dL Borderline High Risk: 150-199 mg/dL High Risk: 200-499 mg/dL Very High Risk: >wk=216 mg/dL HDL 32 mg/dL [facility] Comment: Males: ?? Higher Risk: <40 mg/dL Females: ?? HIgher Risk: <50 mg/dL LDL Cholesterol 6 mg/dL [facility] Comment: Lowest Risk: <100 mg/dL Lower Risk: 100-129 mg/dL Borderline High Risk: 130-159 mg/dL High Risk: 160-189 mg/dL Very High Risk: >bk=766 mg/dL Chol/HDL Ratio 2.3 ratio [facility] Lipid Interpretation See Note [facility] Comment: Lipid management should be guided by a p atient? s ASCVD risk, goals and preferences. ACC/AHA Guidelines recommend high intens ity statin if clinical ASCVD or LDL greater than or equal to 190 mg/dL. http://OnCore Golf TechnologyurUGO Networks.com/PXC-HOJ-Iioewdqcw Adults aged 40-75 with LDL 70-189 mg/dL should have their 10 year ASCVD risk estimated with the ACC/AHA ASCVD risk es timator http://tools.acc.org/WBJLG-Euqq-Xtdsoijl r/ Statin should be discussed if risk [...] Organization Address City/State/[place] [address] (ABNORMAL) Basic Metabolic Panel (non-fasting) (08/15/2018 8:04 AM EST) athologist Signature Glucose Lvl 116 65 - 199 [facility] mg/dL [facility] Comment: Diabetes: >=200 mg/dL plus symp toms BUN 21 (H) 10 - 20 mg/dL [facility] Creatinine 1.08 0.80 - 1.50 mg/dL [facility] Sodium 144 135 - 145 mmol/L [facility] Potassium 4.6 3.5 - 5.0 mmol/L [facility] Comment: Please note: ??Patients with WBC >100,00 0 may have falsely elevated Potassium levels. ??For accurate Potassium quantif ication in these patients send serum separator tube (gold top) for subsequent determinations. ??Contact the Clinical Chemistry Laboratory if there are any qu estions. Chloride 102 98 - 107 mmol/L [facility] CO2 27 22 - 31 mmol/L [facility] Anion Gap 15 5 - 15 mmol/L [facility] Calcium 9.0 8.5 - 10.5 mg/dL [facility] Estimated GFR 68 >=60 mL/min/1.73 m?? [facility] Comment: The eGFR was calculated using the CKD-EP I equation. As with all creatinine based estimates of kidney function, eGFR values calculated with the CKD-EPI equation are not accurate in patients wi th acute kidney failure, extremes of body mass or the acutely ill. http://Virally/[facility]f eGFR 79 >=60 mL/min/1.73 m?? [facility] Comment: The eGFR was calculated using the CKD-EP I equation. As with all creatinine based estimates of kidney function, eGFR values calculated with the CKD-EPI equation are not accurate in patients wi th acute kidney failure, extremes of body mass or the acutely ill. http://Virally/DHMCnkf Specimen Anatomical Collection Method Collection Time Receive d Time (Source) Location / / Volume Laterality Blood specimen 08/15/2018 8:04 AM 019 8:20 (specimen) EST AM EST Resulting Agency Comment Spec In Lab Danette Maxwell APRN CHEMISTRY ORDERABLES Performing Organization Address City/[facility]/ZIP Code Phon e Number [address] (ABNORMAL) pro-Brain Natriuretic Peptide (08/15/2018 8:04 AM EST) P athologist Signature ProBNP 1,797 (H) <=125 [facility] pg[facility] Specimen Anatomical Collection Method Collection Time Receive d Time (Source) Location / / Volume Laterality Blood specimen 08/15/2018 8:04 AM 019 8:20 (specimen) EST AM EST Resulting Agency Comment Spec In Lab Dnaette Maxwell APRN CHEMISTRY ORDERABLES Performing Organization Address City/State/[place] [address] documented in this encounter Visit Diagnoses Diagnosis Chronic systolic heart failure Cardiomyopathy, ischemic Other specified forms of chronic ischemi c heart disease ASCVD (arteriosclerotic cardiovascular d isease) Unspecified cardiovascular disease Essential hypertension Unspecified essential hypertension MARIA VICTORIA on CPAP Obstructive sleep apnea (adult) (pediatr ic) documented in this encounter Care Teams Loom Starter Relationship Specialty Start Date End Date Lovely Vicente MD PCP - General 04/16/[address] [place] [address] documented as of this encounter
--- OUTSIDE RECORDS SUMMARY | 2022-02-13 11:11 | XMS_ITS | Encounter Summary ---
:1945 Author Organization [facility] [place] [address] Care Team Providers Name Role Phone Lovely Vicente MD Primary Care Provider Encounter Details Date Type Department Care Team Description 10/05/2017 Unscheduled Cardiology [place] [facility] [place] Sin PATIENT NOT SEEN Encounter [facility] Tamiko Martinez MD [facility] [phone] CARDIOLOGY DEPT [phone] [place] [address] Social History Tobacco Use Types Packs/Day Years [...] Office Visit Cardiology Liz Poole PA [facility] Cardiology Dept [place], [place] [address] (Wo rk) 03/26/2022 Office Visit Cardiology Vitaliy Nobles MD [facility] CARDIOLOGY [place], [place] [address] (Wo rk) documented as of this encounter Visit Diagnoses Diagnosis DH PATIENT NOT SEEN documented in this encounter Care Teams Supervisor Dimension Warehouse Relationship Specialty Start Date End Date Lovely Vicente MD PCP - General 04/16/[address] [place] [address] documented as of this encounter
--- OUTSIDE RECORDS SUMMARY | 2022-02-13 11:11 | XMS_ITS | Encounter Summary ---
:1945 Author Organization [facility] [place] [address] Care Team Providers Name Role Phone Lovely Vicente MD Primary Care Provider Encounter Details Date Type Department Care Team Description 11/29/2017 Hospital Encounter Vascular Lab at [facility] [place] [id number] Social History Tobacco Use Types Packs/Day Years [...] Liz Poole PA [facility] Cardiology Dept [place], [place] [address] (Wo rk) 03/26/2022 Office Visit Cardiology Vitaliy Nobles MD [facility] CARDIOLOGY [place], [place] [address] (Wo rk) documented [...] Component Value Ref Test Analysis Performed At [facility] Range Method Time Signature VB Text Department: Vascular Surgery Lab VASCUBASE Report Patient: [id number] (DON HOANG) CPT: 39090 ICD10: I72.4;I73.9 Referring Physician: DANETTE MAXWELL ?? [...] unspecified documented in this encounter Care Teams Network Consultant Relationship Specialty Start Date End Date Lovely Vicente MD PCP - General 04/16/[address] [place] [address] documented as of this encounter
--- OUTSIDE RECORDS SUMMARY | 2022-02-13 11:11 | XMS_ITS | Encounter Summary ---
:1945 Author Organization [facility] [place] [address] Care Team Providers Name Role Phone Lovely Vicente MD Primary Care Provider Encounter Details Date Type Department Care Team Description 08/15/2018 Laboratory Lab 3L Barbara Wiseman systoli c heart failure; Appointment [facility] ASCVD (ar teriosclerotic cardiovascular disease) [place] [id number] Social History Tobacco Use Types Packs/Day Years [...] [facility] er Cardiology Dept [place], [place] [address] (Wo rk) 03/26/2022 Office Visit Cardiology Vitaliy Nobles MD [facility] ER CARDIOLOGY [place], [place] [address] (Wo rk) documented as of [...] Lvl 116 65 - 199 [facility] mg/dL [facility] Comment: Diabetes: >=200 mg/dL plus symp toms BUN 21 (H) 10 - 20 mg/dL [facility] Creatinine 1.08 0.80 - 1.50 mg/dL [facility] Sodium 144 135 - 145 mmol/L [facility] Potassium 4.6 3.5 - 5.0 mmol/L [facility] Comment: Please note: ??Patients with WBC >100,00 0 may have falsely elevated Potassium levels. ??For accurate Potassium quantif ication in these patients send serum separator tube (gold top) for subsequent determinations. ??Contact the Clinical Chemistry Laboratory if there are any qu estions. Chloride 102 98 - 107 mmol/L [facility] CO2 27 22 - 31 mmol/L [facility] Anion Gap 15 5 - 15 mmol/L [facility] Calcium 9.0 8.5 - 10.5 mg/dL [facility] Estimated GFR 68 >=60 mL/min/1.73 m?? [facility] Comment: The eGFR was calculated using the CKD-EP I equation. As with all creatinine based estimates of kidney function, eGFR values calculated with the CKD-EPI equation are not accurate in patients wi th acute kidney failure, extremes of body mass or the acutely ill. http://Ion Beam Services/DHnkf eGFR 79 >=60 mL/min/1.73 m?? [facility] Comment: The eGFR was calculated using the CKD-EP I equation. As with all creatinine based estimates of kidney function, eGFR values calculated with the CKD-EPI equation are not accurate in patients wi th acute kidney failure, extremes of body mass or the acutely ill. http://Ion Beam Services/DHMCnkf Specimen Anatomical Collection Method Collection Time Receive d Time (Source) Location / / Volume Laterality Blood specimen 08/15/2018 8:04 AM 019 8:20 (specimen) EST AM EST Resulting Agency Comment Spec In Lab Danette A [place] STACIE CHEMISTRY ORDERABLES Performing Organization Address City/State/[place] [address] Lipid Panel (08/15/2018 8:04 AM EST) P athologist Signature Chol, Total 75 mg/dL [facility] Comment: Lower Risk: <200 mg/dL Average Risk: 200-239 mg/dL Higher Risk: >ar=565 mg/dL Triglycerides 185 mg/dL [facility] Comment: Average Risk/Lower Risk: <150 mg/dL Borderline High Risk: 150-199 mg/dL High Risk: 200-499 mg/dL Very High Risk: >lz=916 mg/dL HDL 32 mg/dL [facility] Comment: Males: ?? Higher Risk: <40 mg/dL Females: ?? HIgher Risk: <50 mg/dL LDL Cholesterol 6 mg/dL [facility] Comment: Lowest Risk: <100 mg/dL Lower Risk: 100-129 mg/dL Borderline High Risk: 130-159 mg/dL High Risk: 160-189 mg/dL Very High Risk: >fy=272 mg/dL Chol/HDL Ratio 2.3 ratio [facility] Lipid Interpretation See Note [facility] Comment: Lipid management should be guided by a p atient? s ASCVD risk, goals and preferences. ACC/AHA Guidelines recommend high intens ity statin if clinical ASCVD or LDL greater than or equal to 190 mg/dL. http://tinyurl.com/CLD-ACX-Zjuwjtfor Adults aged 40-75 with LDL 70-189 mg/dL should have their 10 year ASCVD risk estimated with the ACC/AHA ASCVD risk es timator http://tools.acc.org/ZSJQA-Pakn-Pmuoxzov r/ Statin should be discussed if risk [...] Organization Address City/State/[place] [address] (ABNORMAL) pro-Brain Natriuretic Peptide (08/15/2018 8:04 AM EST) P athologist Signature ProBNP 1,797 (H) <=125 [facility] pg/mL [facility] Specimen Anatomical Collection Method Collection Time Receive d Time (Source) Location / / Volume Laterality Blood specimen 08/15/2018 8:04 AM 019 8:20 (specimen) EST AM EST Resulting Agency Comment Spec In Lab Danette Maxwell APRN CHEMISTRY ORDERABLES Performing Organization Address City/State/[place] [address] documented in this encounter Visit Diagnoses Diagnosis Chronic systolic heart failure ASCVD (arteriosclerotic cardiovascular d isease) Unspecified cardiovascular disease documented in this encounter Care Teams Scrap Cutter Relationship Specialty Start Date End Date Lovely Vicente MD PCP - General 04/16/[address] [place] [address] documented as of this encounter
--- OUTSIDE RECORDS SUMMARY | 2022-02-13 11:11 | XMS_ITS | Encounter Summary ---
:1945 Author Organization [facility] [place] [address] Care Team Providers Name Role Phone Lovely Vicente MD Primary Care Provider Encounter Details Date Type Department Care Team Description 01/16/2019 Laboratory Appointment Lab 3L [facility] [place] [address] Social History Tobacco Use Types Packs/Day Years [...] [facility] er Cardiology Dept [place], [place] [address] (Wo rk) 03/26/2022 Office Visit Cardiology Vitaliy Nobles MD [facility] ER CARDIOLOGY [place], [place] [address] (Wo rk) documented as of [...] Organization Address City/State/ZIP [place] [address] (ABNORMAL) Basic Metabolic Panel (non-fasting) (01/16/2019 7:49 AM EDT) athologist Signature Glucose Lvl 105 65 - 199 [facility] mg/dL [facility] Comment: Diabetes: >=200 mg/dL plus symp toms BUN 25 (H) 10 - 20 mg/dL [facility] Creatinine 1.08 0.80 - 1.50 mg/dL [facility] Sodium 145 135 - 145 mmol/L [facility] [...] Anion Gap 13 5 - 15 mmol/L [facility] Calcium 9.2 8.5 - 10.5 mg/dL [facility] Estimated GFR 68 >=60 mL/min/1.73 m?? [facility] Comment: The eGFR was calculated using the CKD-EP I equation. As with all creatinine based estimates of kidney function, eGFR values calculated with the CKD-EPI equation are not accurate in patients wi th acute kidney failure, extremes of body mass or the acutely ill. http://SmartVault/[facility] eGFR 79 >=60 mL/min/1.73 m?? [facility] Comment: The eGFR was calculated using the CKD-EP I equation. As with all creatinine based estimates of kidney function, eGFR values calculated with the CKD-EPI equation are not accurate in patients wi th acute kidney failure, extremes of body mass or the acutely ill. http://SmartVault/[facility] Specimen Anatomical Collection Method Collection Time Receive d Time (Source) Location / / Volume Laterality Blood specimen 01/16/2019 7:49 AM 019 7:55 (specimen) EDT AM EDT Resulting Agency Comment Spec In Lab Danette Maxwell APRN CHEMISTRY ORDERABLES Performing Organization Address City/State/[place] [address] documented in this encounter Visit Diagnoses Diagnosis Chronic systolic heart failure documented in this encounter Care Teams Stack Supervisor Relationship Specialty Start Date End Date Lovely Vicente MD PCP - General 04/16/[address] [place] [address] documented as of this encounter
--- OUTSIDE RECORDS SUMMARY | 2022-02-13 11:11 | XMS_ITS | Encounter Summary ---
:1945 Author Organization [facility] [place] [address] Care Team Providers Name Role Phone Lovely Vicente MD Primary Care Provider Reason for Visit Reason Onset Date Comments Other 11/11/2017 Please call [facility] Encounter Details Date Type Department Care Team Description 11/11/2017 Telephone Cardiology at [place] Danette Maxwell, Other (Please call [facility] MAIL MANAGER [facility] [place] [address] CARDIOLOGY [place], [place] [address] (Wo rk) Social History Tobacco [...] Cardiology Liz Poole PA [facility] Dr Cardiology Dept [place], [place] [address] (Wo rk) 03/26/2022 Office Visit Cardiology Vitalyi Nobles MD [facility] CARDIOLOGY [place], [place] [address] (Wo rk) documented as of this encounter Visit Diagnoses Not on filedocumented in this encounter Care Teams Wage Adjuster Relationship Specialty Start Date End Date Lovely Vicente MD PCP - General 04/16/15 [facility] [address] [place] [address] documented as of this encounter
--- OUTSIDE RECORDS SUMMARY | 2022-02-13 11:11 | XMS_ITS | Encounter Summary ---
:1945 Author Organization [facility] [place] [address] Care Team Providers Name Role Phone Lovely Vicente MD Primary Care Provider Encounter Details Date Type Department Care Team Description 10/07/2017 Laboratory Appointment Lab 3L [facility] [place] [address] Social History Tobacco Use Types Packs/Day Years [...] 02/19/2022 Office Visit Cardiology Liz Poole PA [facility] er Cardiology Dept [place], [place] [address] (Wo rk) 03/26/2022 Office Visit Cardiology Vitaliy Nobles MD [facility] ER CARDIOLOGY [place], [place] [address] (Wo rk) documented as of [...] Signature Glucose Lvl 99 65 - 199 [facility] mg/dL [facility] Comment: Diabetes: >=200 mg/dL plus symp toms BUN 27 (H) 10 - 20 mg/dL [facility] Creatinine 1.07 0.80 - 1.50 mg/dL [facility] Sodium 143 135 - 145 mmol/L [facility] Potassium 4.7 3.5 - 5.0 mmol/L [facility] Comment: Please note: ??Patients with WBC >100,00 0 may have falsely elevated Potassium levels. ??For accurate Potassium quantif ication in these patients send serum separator tube (gold top) for subsequent determinations. ??Contact the Clinical Chemistry Laboratory if there are any qu estions. Chloride 102 98 - 107 mmol/L [facility] CO2 28 22 - 31 mmol/L [facility] Anion Gap 13 5 - 15 mmol/L [facility] Calcium 8.4 (L) 8.5 - 10.5 mg/dL [facility] Estimated GFR >60 >=60 [facility] Comment: The reported eGFR should be multiplied b y 1.2 for patients. The MDRD is not an appropriate measure o f renal function for patients with body mass extremes or in patients with acute kidney failure. http://MarketInvoice.Epay Systems/DHnkdep http://MarketInvoice.Epay Systems/DHMCnkf Specimen Anatomical Collection Method Collection Time Receive d Time (Source) Location / / Volume Laterality Blood specimen 10/07/2017 8:48 AM 018 8:50 (specimen) EDT AM EDT Resulting Agency Comment Spec In Lab Danette Maxwell APRN CHEMISTRY ORDERABLES Performing Organization Address City/State/[place] [address] (ABNORMAL) pro-Brain Natriuretic Peptide (10/07/2017 8:48 AM EDT) P athologist Signature ProBNP 1,170 (H) <=125 [facility] pg/mL [facility] Specimen Anatomical Collection Method Collection Time Receive d Time (Source) Location / / Volume Laterality Blood specimen 10/07/2017 8:48 AM 018 8:50 (specimen) EDT AM EDT Resulting Agency Comment Spec In Lab Danette Gomes Scalf [employer] INCIDENT HANDLER CHEMISTRY ORDERABLES Performing Organization Address City/State/[place] [address] documented in this encounter Visit Diagnoses Diagnosis Chronic systolic heart failure documented in this encounter Care Teams On Awake Counselor Relationship Specialty Start Date End Date Lovely Vicente MD PCP - General 04/16/[address] [place] [address] documented as of this encounter
--- OUTSIDE RECORDS SUMMARY | 2022-02-13 11:11 | XMS_ITS | Encounter Summary ---
:1945 Author Organization [facility] Address [address] [place] [address] Care Team Providers Name Role Phone Lovely Vicente MD Primary Care Provider Reason for Referral Diagnostic Test (Routine) - Specialty Diagnoses / Procedures Referred By Contact Refer red To Contact Cardiology Diagnoses Chronic systolic heart failure Danette Maxwell APRN [facility] Non-Inv Card Lab Procedures Echocardiogram Transthoracic(Leb) [facility] [place] [address] [place] [address] Referral ID Status Reason Start Date Expiration Visits Visits Date Requested Authorized [id number] Specialty 08/15/2018 08/15/2018 1 1 Service Requested Encounter Details Date Type Department Care Team Description 04/18/2018 Office Visit Cardiology at [facility] Danette Maxwell Chronic systolic heart failu re; [facility] STACIE Gomes On amiodarone therapy; [facility] Ischemic cardiomyopathy; [place] DR ONOFRE (arteriosclerotic cardiovascular d isease) [phone] CARDIOLOGY [phone] [place], [place] [address] Social History Tobacco Use Types Packs/Day Years [...] in this encounter Progress Notes Danette Maxwell, FOOD ORDER DELIVERY RUNNER - 04/18/2018 10:40 AM EDT ID and [...] x 80 10/25/2017: right popliteal-pedal bypass at [facility] ? Plan: 1. A review of the [...] Office Visit Cardiology Liz Poole PA [facility] Cardiology Dept [place], [place] [address] (Wo rk) 03/26/2022 Office Visit Cardiology Vitaliy Nobles MD [facility] CARDIOLOGY [place], [place] [address] ([facility]) documented as of this encounter Results ECHOCARDIOGRAM COMPLETE W CONTRAST (08/15/2018 7:55 AM EST) athologist Signature EF 35 HEARTLAB SYSTEM Specimen (Source) Anatomical Location Collection Method / Collectio n Time Received Time / Laterality Volume 08/15/2018 Narrative HEARTLAB SYSTEM - 08/15/2018 8:18 AM EST Procedure: ?Transthoracic Echocardiogram Patient: ?NATALYA Mccollum ? (Age): 1945(73y) Med Rec#: ? [id number] ?Sex: ?M ? Site Loc: ? [facility] ?Ht / Wt: ??172(cm)/81(kg) Pt. Loc: ?Echo Lab ?BSA: ?1.94 Study Date: ?? 08/15/2018 ?Pt. Type: Outpatient Tape: ? Referring: MARY ELLEN Reading: Scott Ortega ([id number]) Warehouse Administrator: Laura Sargent Diagnosis: *Chronic systolic (congestive) heart [...] E-wave Vmax ?1.2 ?m/sec ? MV deceleration qxzr668.4 ? msec ? MV A-wave Vmax ?0.7 [...] ? Mid-Inferior ?Hypokinetic ? Mid-Inferoseptal ?Hypokinetic ? [place]-Septal ? Akinetic ? [place]-Anterior ? Hypokinetic ? [place]-Lateral ?Akinetic ? [place]-Inferior ? Hypokinetic ? [place]-Tip ?Akinetic ? This report has been electronically sign ed by: _ Scott Ortega M.D. ? 08/15/2018 08:17:26 Images reviewed and interpretation elvie hwang [facility] Cardiac Ultrasound Laboratory Procedure Note Soctt Ortega MD - 08/15/2018Format ting of this note might be different from the original. Procedure: Transthoracic Echocardiogram Patient: NATALYA MCBRIDE(Age): [birth year]73y) Med Rec#: [id number] Sex: M Site Loc: [facility] Ht / Wt: 172(cm)/81(kg) Pt. Loc: Echo Lab BSA: 1.94 Study Date: 08/15/2018 Pt. Type: Outpati ent Tape: Referring: MARY ELLEN Reading: Scott Ortega ([id number]) Warehouse Administrator: Laura Sargent Diagnosis: *Chronic systolic (congestive) heart [...] MV E-wave Vmax 1.2 m/sec MV deceleration atys101.4 msec MV A-wave Vmax 0.7 m/sec MV [...] Akinetic Mid-Posterolateral Akinetic Mid-Inferior Hypokinetic Mid-Inferoseptal Hypokinetic [place]-Septal Akinetic [place]-Anterior Hypokinetic [place]-Lateral Akinetic [place]-Inferior Hypokinetic [place]-Tip Akinetic This report has been electronically sign ed by: _ Scott Ortega M.D. 08/15/2018 08:17: 26 Images reviewed and interpretation verholger hwang [facility] Cardiac Ultrasound Laboratory Danette Maxwell APRN ECHO ORDERABLES Performing Organization Address City/State/ZIP Code Phon e Number HEARTLAB SYSTEM (ABNORMAL) Basic Metabolic Panel (non-fasting) (04/18/2018 9:19 AM EDT) P athologist Signature Glucose Lvl 167 65 - 199 [facility] mg/dL [facility] Comment: Diabetes: >=200 mg/dL plus symp toms BUN 18 10 - 20 mg/dL [facility] Creatinine 1.19 0.80 - 1.50 mg/dL [facility] Sodium 147 (H) 135 - 145 mmol/L [facility] Potassium 4.8 3.5 - 5.0 mmol/L [facility] Comment: Please note: ??Patients with WBC >100,00 0 may have falsely elevated Potassium levels. ??For accurate Potassium quantif ication in these patients send serum separator tube (gold top) for subsequent determinations. ??Contact the Clinical Chemistry Laboratory if there are any qu estions. Chloride 101 98 - 107 mmol/L [facility] CO2 23 22 - 31 mmol/L [facility] Anion Gap 23 (H) 5 - 15 mmol/L [facility] Calcium 9.3 8.5 - 10.5 mg/dL [facility] Estimated GFR 61 >=60 mL/min/1.73 m?? [facility] Comment: The eGFR was calculated using the CKD-EP I equation. As with all creatinine based estimates of kidney function, eGFR values calculated with the CKD-EPI equation are not accurate in patients wi th acute kidney failure, extremes of body mass or the acutely ill. http://Smartsy/DHnkf eGFR 70 >=60 mL/min/1.73 m?? [facility] Comment: The eGFR was calculated using the CKD-EP I equation. As with all creatinine based estimates of kidney function, eGFR values calculated with the CKD-EPI equation are not accurate in patients wi th acute kidney failure, extremes of body mass or the acutely ill. http://Smartsy/DHMCnkf Specimen Anatomical Collection Method Collection Time Receive d Time (Source) Location / / Volume Laterality Blood specimen 04/18/2018 9:19 AM 018 9:34 (specimen) EDT AM EDT Resulting Agency Comment Spec In Lab Danette Maxwell STACIE CHEMISTRY ORDERABLES Performing Organization Address City/State/ZIP Code Phon e Number [address] (ABNORMAL) pro-Brain Natriuretic Peptide (04/18/2018 9:19 AM EDT) P athologist Signature ProBNP 2,199 (H) <=125 [facility] pg/mL [facility] Specimen Anatomical Collection Method Collection Time Receive d Time (Source) Location / / Volume Laterality Blood specimen 04/18/2018 9:19 AM 018 9:34 (specimen) EDT AM EDT Resulting Agency Comment Spec In Lab Danette Gomes [place] STACIE CHEMISTRY ORDERABLES Performing Organization Address City/[facility]/ZIP [place] [address] documented in this encounter Visit Diagnoses Diagnosis Chronic systolic heart failure On amiodarone therapy Ischemic cardiomyopathy Other specified forms of chronic ischemi c heart disease ASCVD (arteriosclerotic cardiovascular d isease) Unspecified cardiovascular disease Chronic systolic heart failure documented in this encounter Care Teams Teacher Adventure Education Relationship Specialty Start Date End Date Lovely Vicente MD PCP - General 04/16/[address] [place] [address] documented as of this encounter
--- OUTSIDE RECORDS SUMMARY | 2022-02-13 11:11 | XMS_ITS | Encounter Summary ---
:1945 Author Organization [place] [address] Care Team Providers Name Role Phone Lovely Vicente MD Primary Care Provider Encounter Details Date Type Department Care Team Description 08/26/2018 Transcribe Orders Laboratory Lovely Vicente, Deferred diagnosis [facility] on axis I [address] [address] [place], [place] [phone] [address] Social History Tobacco Use Types Packs/Day Years [...] [facility] er Cardiology Dept [place], [place] [address] (Wo rk) 03/26/2022 Office Visit Cardiology Vitaliy Nobles MD [facility] CARDIOLOGY [place], [place] [address] (Wo rk) documented as of this encounter Visit Diagnoses Diagnosis Deferred diagnosis on axis I Other unknown and unspecified cause of m orbidity or mortality documented in this encounter Care Teams Wrap Knitting Machine Operator Relationship Specialty Start Date End Date Lovely Vicente MD PCP - General 04/16/[address] [place] [address] documented as of this encounter
--- OUTSIDE RECORDS SUMMARY | 2022-02-13 11:11 | XMS_ITS | Encounter Summary ---
:1945 [place] [address] Care Team Providers Name Role Phone Lovely Vicente MD Primary Care Provider Encounter Details Date Type Department Care Team Description 08/15/2018 Laboratory Appointment Lab [address] [place] [address] Social History Tobacco Use Types Packs/Day [...] Poole PA [facility] er Cardiology Dept [place], [place] [address] (Wo rk) 03/26/2022 Office Visit Cardiology Vitaliy Nobles MD [facility] CARDIOLOGY [place], [place] [address] (Wo rk) documented as of this encounter Procedures Procedure Name Priority Date/Time Associated Diagnosis Comme nts PROTHROMBIN TIME Routine 08/15/2018 8:04 AM Resul ts for this EST procedure are i n the results section. documented in this encounter Results (ABNORMAL) Prothrombin Time (08/15/2018 8:04 AM EST) P athologist Signature PT 24.0 (H) 9.4 - 12.5 [facility] LABORATORY INR [address] [facility] Comment: An INR [...] Organization Address City/State/ZIP [place] [address] documented in this encounter Visit Diagnoses Not on filedocumented in this encounter Care Teams Cloth Grader Relationship Specialty Start Date End Date Lovely Vicente MD PCP - General 04/16/[address] [place] [address] documented as of this encounter
--- OUTSIDE RECORDS SUMMARY | 2022-02-13 11:11 | XMS_ITS | Encounter Summary ---
:1945 Author Organization [facility] [place] [address] Care Team Providers Name Role Phone Lovely Vicente MD Primary Care Provider Reason for Visit Reason Onset Date Comments Follow-up 07/13/2018 amiodarone discontin ued Encounter Details Date Type Department Care Team Description 07/13/2018 Telephone Cardiology at [facility] Martha Comer, Follow-up (amiodarone [facility] RN discontin ued) [place] [address] Social History Tobacco Use Types Packs/Day [...] RN - 07/13/2018 8:57 AM EST Per OUTPATIENT COORDINATOR Hans call placed to the home number for the pt. confirmed that the pt is still taking the amiodarone. Pt is to stop the amiodarone. Pt taking it for post op a-fib, therapy was supposed to be for 30 days. Message given to his . She will give him the message and will have him call with any questions. Call placed to the [facility] pharmacy in [place] to discontinue it there as well. Med list updated. documented in this encounter Plan of Treatment Upcoming Encounters Date Type Specialty Care Team Description 02/19/2022 Laboratory Appointment Lab 02/19/2022 Office Visit Cardiology Liz Poole PA [facility] er Cardiology Dept [place], [place] [address] (Wo rk) 03/26/2022 Office Visit Cardiology Vitaliy Nobles MD [facility] ER CARDIOLOGY [place], [place] [address] (Wo rk) documented as of this encounter Visit Diagnoses Not on filedocumented in this encounter Care Teams Supervisor [employer] Relationship Specialty Start Date End Date Lovely Vicente MD PCP - General 04/16/[address] [place] [address] documented as of this encounter
--- OUTSIDE RECORDS SUMMARY | 2022-02-13 11:11 | XMS_ITS | Encounter Summary ---
:1945 Author Organization [facility] [place] [address] Care Team Providers Name Role Phone Lovely Vicente MD Primary Care Provider Encounter Details Date Type Department Care Team Description 02/19/2020 Telephone Dermatology at [facility] Ariana Wilder LPN [address] [place] [address] Social History Tobacco Use Types Packs/Day Years Used Date Former Smoker Cigarettes 3 5 Quit: 07/26/18 69 Smokeless Tobacco: Never Used Alcohol Use Standard Drinks/Week Comments No 0 (1 standard drink = 0.6 oz pure alcoho l) Sex Assigned at Date Recorded Not on file documented as of this encounter Miscellaneous Notes Telephone Encounter - Ariana Wilder LPN - [...] Office Visit Cardiology Liz Poole PA [facility] er Cardiology Dept [place], [place] [address] (Wo rk) 03/26/2022 Office Visit Cardiology Vitaliy Nobles MD [facility] CARDIOLOGY [place], [place] [address] (Wo rk) documented as of this encounter Visit Diagnoses Not on filedocumented in this encounter Care Teams Drugless Physician Relationship Specialty Start Date End Date Lovely Vicente MD PCP - General 04/16/15 [facility] [address] [place] [address] documented as of this encounter
--- OUTSIDE RECORDS SUMMARY | 2022-02-13 11:11 | XMS_ITS | Encounter Summary ---
:1945 Author Organization [facility] [place] [address] Care Team Providers Name Role Phone Lovely Vicente MD Primary Care Provider Reason for Referral Diagnostic Test (Routine) - Closed Specialty Diagnoses / Procedures Referred By Contact Refer red To Contact Cardiology Diagnoses Chronic systolic heart failure Danette Maxwell APRN [facility] Non-Inv Card Lab Procedures Echocardiogram Transthoracic(Leb) [facility] [place] [address] [place] [address] Referral ID Status Reason Start Date Expiration Date Visits V isits Requested Authorized [id number] Closed Specialty 07/17/2019 09/14/2019 1 1 Service Requested Reason for Visit Diagnostic Test (Routine) - Closed Specialty Diagnoses / Procedures Referred By Contact Refer red To Contact Cardiology Diagnoses Chronic systolic heart failure Danette Maxwell APRN [facility] Non-Inv Card Lab Procedures Echocardiogram Transthoracic(Leb) [facility] [place] [address] [place] [address] Referral ID Status Reason Start Date Expiration Date Visits V isits Requested Authorized [id number] Closed Specialty 07/17/2019 09/14/2019 1 1 Service Requested Encounter Details Date Type Department Care Team Description 07/28/2019 Hospital Encounter Non-Invasive Chronic s ystolic heart [place] [address] Social History Tobacco Use Types Packs/Day [...] Poole PA [facility] Cardiology Dept [place], [place] [address] (Wo rk) 03/26/2022 Office Visit Cardiology Vitaliy Nobles MD [facility] CARDIOLOGY [place], [place] [address] (Wo rk) documented as of [...] Mccollum ? (Age): 1945(74y) Med Rec#: ? [id number] ?Sex: ?M ? Site Loc: ? [facility] ?Ht / Wt: ??172(cm)/81(kg) Pt. Loc: ?Echo Lab ?BSA: ?1 Study Date: ?? 07/28/2019 ?Pt. Type: Outpatient Tape: ? Referring: MARY ELLEN Reading: Ifeanyi Truong ([id number]) Kennel Staff Member: Fadumo Flanagan RDCS, FASE Diagnosis: *Chronic systolic [...] E-wave Vmax ?1 ?m/sec ? MV deceleration vyei414.5 ? msec ? MV A-wave Vmax ?1 [...] ? Pulmonic Valve/Qp:Qs ?Value ?Units (Range) ? TN end-diastolic Vma1.1 ?m/sec ? Wall Motion: Segment Name ?Rest ? Base-Anteroseptal ?? Normal ? Base-Anterior ? Normal ? Base-Anterolateral ??Normal ? Base-Posterolateral Normal ? Base-Inferior ? Akinetic ? Base-Inferoseptal ?? Normal ? Mid-Anteroseptal ?Normal ? Mid-Anterior ?Hypokinetic ? Mid-Anterolateral ?? Normal ? Mid-Posterolateral ??Normal ? Mid-Inferior ?Hypokinetic ? Mid-Inferoseptal ?Normal ? [place]-Septal ? Normal ? [place]-Anterior ? Hypokinetic ? [place]-Lateral ?Normal ? [place]-Inferior ? Akinetic ? [place]-Tip ?Hypokinetic ? This report has been electronically sign ed by: _ Ifeanyi Truong M.D. ? 07/28/2019 0 8:38:01 Images reviewed and interpretation verholger iewanda [facility] Cardiac Ultrasound Laboratory Procedure Note Ifeanyi Truong MD - 07/28/2019Formatt ing of this note might be different from the original. Procedure: Transthoracic Echocardiogram Patient: NATALYA MCBRIDE(Age): [birth year]74y) Med Rec#: [id number] Sex: M Site Loc: [facility] Ht / Wt: 172(cm)/81(kg) Pt. Loc: Echo Lab BSA: 1.94 Study Date: 07/28/2019 Pt. Type: Outpati ent Tape: Referring: MARY ELLEN Reading: Ifeanyi Truong ([id number]) Kennel Staff Member: Fadumo Flanagan RDCS, REGINA Diagnosis: *Chronic systolic [...] MV E-wave Vmax 1 m/sec MV deceleration [id number] msec MV A-wave Vmax 1 m/sec MV [...] 0.7 ratio Pulmonic Valve/Qp:Qs Value Units (Range) TN end-diastolic Vma1.1 m/sec Wall Motion: Segment Name Rest Base-Anteroseptal Normal Base-Anterior Normal Base-Anterolateral Normal Base-Posterolateral Normal Base-Inferior Akinetic Base-Inferoseptal Normal Mid-Anteroseptal Normal Mid-Anterior Hypokinetic Mid-Anterolateral Normal Mid-Posterolateral Normal Mid-Inferior Hypokinetic Mid-Inferoseptal Normal [place]-Septal Normal [place]-Anterior Hypokinetic [place]-Lateral Normal [place]-Inferior Akinetic [place]-Tip Hypokinetic This report has been electronically sign ed by: _ Ifeanyi Truong M.D. 07/28/2019 08:38:0 1 Images reviewed and interpretation verif ied [facility] Cardiac Ultrasound Laboratory Danette A Hans NODULIZER ECHO ORDERABLES Performing Organization Address City/State/ZIP Code [...] Routine documented in this encounter Care Teams Laborer Starch Factory Relationship Specialty Start Date End Date Lovely Vicente MD PCP - General 04/16/[address] [place] [address] documented as of this encounter
--- OUTSIDE RECORDS SUMMARY | 2022-02-13 11:11 | XMS_ITS | Encounter Summary ---
:1945 Author Organization [facility] [place] [address] Care Team Providers Name Role Phone Lovely Vicente MD Primary Care Provider Reason for Visit Reason Onset Date Comments Other 03/24/2019 cardiac clearance ne eded Encounter Details Date Type Department Care Team Description 03/24/2019 Telephone Cardiology [place] [facility] Danette Maxwell, Other (cardiac [facility] HOPPER FILLER clearance needed) [place] [address] CARDIOLOGY [place], [place] [address] (Wo rk) Social History Tobacco [...] AM EDT Leonela from [facility] [place] called requesting cardiac clearance for this patient who is to have a colonoscopy on 04/04/19. He is on anticoagulation and they will need to bridge him. Their phone # [phone], fax# [phone]. Thank you. documented in this encounter Plan of Treatment Upcoming Encounters Date Type Specialty Care Team Description 02/19/2022 Laboratory Appointment Lab 02/19/2022 Office Visit Cardiology Liz Poole PA [facility] Cardiology Dept [place], [place] [address] (Wo rk) 03/26/2022 Office Visit Cardiology Vitaliy Nobles MD [facility] CARDIOLOGY [place], [place] [address] (Wo rk) documented as of this encounter Visit Diagnoses Not on filedocumented in this encounter Care Teams Case Finisher Relationship Specialty Start Date End Date Lovely Vicente MD PCP - General 04/16/[address] [place] [address] documented as of this encounter
--- OUTSIDE RECORDS SUMMARY | 2022-02-13 11:11 | XMS_ITS | Encounter Summary ---
:1945 Author Organization [facility] [place] [address] Care Team Providers Name Role Phone Lovely Vicente MD Primary Care Provider Reason for Visit Reason Comments Skin Check Encounter Details Date Type Department Care Team Description 07/06/2018 Office Visit Dermatology at [facility], Rigoberto Yarbrough (actinic keratosis); MD SHAY Quick III (seborrheic keratosis); [address] [facility] History of melanoma; [place] [address] Skin exam for malignant neoplasm [phone] [facility] [place], [place] [address] Social History Tobacco Use Types [...] leg - he had vascular surgery in [facility] while he lost several toes, they saved [...] Rigoberto Garcia MD Section of Dermatology [facility] documented in this encounter Plan of Treatment Upcoming Encounters Date Type Specialty Care Team Description 02/19/2022 Laboratory Appointment Lab 02/19/2022 Office Visit Cardiology Liz Poole PA [facility] Cardiology [place], [place] [address] (Wo rk) 03/26/2022 Office Visit Cardiology Vitaliy Nobles MD [facility] CARDIOLOGY [place], [place] [address] (Wo rk) documented as of this encounter Visit Diagnoses Diagnosis AK (actinic keratosis) Actinic keratosis [place] (seborrheic keratosis) Other seborrheic keratosis History of melanoma Personal history of malignant melanoma o f skin Skin exam for malignant neoplasm Screening for malignant neoplasm of the skin documented in this encounter Care Teams Chemical Equipment Controller Relationship Specialty Start Date End Date Lovely Vicente MD PCP - General 04/16/[address] [place] [address] documented as of this encounter
--- OUTSIDE RECORDS SUMMARY | 2022-02-13 11:11 | XMS_ITS | Encounter Summary ---
:1945 Author Organization [facility] [place] [address] Care Team Providers Name Role Phone Lovely Vicente MD Primary Care Provider Reason for Visit Reason Comments Establish Care Atrial Fibrillation Congestive Heart Failure Cardiomyopathy Encounter Details Date Type Department Care Team Description 09/06/2019 [facility] Ischemic [facility] Osvaldo STRANGE [address] [place], [place] CARDIOLOGY DEPT. [id number] [place] [address] [phone] Social History Tobacco Use Types Packs/Day Years [...] documented in this encounter Patient Instructions Patient InstructionsKarel Mcelroy MD - 09/06/2019 2:20 PM EST Images from the original note were not included. It was nice to see you in the Cardiac Electrophysiology Clinic today. We discussed the heart failure, the echo, the zio patch monitor You should continue with your medicines as before I made no changes to your medicines today For any questions, call my office: [phone] To access your health care information, go to the web at: [email or web address] (you will need to register) For educational materials: [email or web address] Karel TRAMMELL.[facility], Clinical Cardiac Electrophysiology, [facility], [facility] A Healthy Heart: After Your Visit [...] least 2 servings of fish a week. [place], mackerel, mcfadden, sardines, and chunk light tuna [...] irregular heartbeat. After you call 911, the winding rack operator may tell you to chew 1 [...] more? Visit our health information library at [email or web address]. You can also view health information on [email or web address], your personal patient account. Log in or sign up today. Enter F075 in the search box to learn more about A Healthy Heart: After Your Visit. ?? [phone] [employer]. documented in this encounter Progress Notes Karel Mcelroy MD - 09/06/2019 2:20 PM EST Images from the original note were not included. Section of Cardiology/Cardiac Electrophysiology [facility] Clinical Cardiac Electrophysiology Consult Patient ID Don Fatima 1945 [id number] Don Fatima is referred to the EP clinic by Danette Maxwell APRN PhD Chief Complaint Dyspnea on exertion Ischemic cardiomyopathy History This is a 74 y.o. male following up/being seen in clinic for evaluation for ongoing anticoagulation. He has a [id number] score of ~ 6-7. 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, can walk [...] on phone: None Gets together: None Attends jain service: None Active member of club or [...] reviewed the ECG: sinus rhythm, 72 bpm, LA 140 ms, QRS 100 ms, QT 400 [...] EP clinic KAREL MCELROY MD Cardiac Electrophysiology [facility] T: [phone] F: [phone] 35 minutes of this 40 minute encounter were spent in counselling, as described above Cc: MD Danette Cr APRN PhD Janett Espino DPM documented in this encounter Plan of Treatment Upcoming Encounters Date Type Specialty Care Team Description 02/19/2022 Laboratory Appointment Lab 02/19/2022 Office Visit Cardiology [facility] Card[facility] Dept [place], [place] [address] (Wo rk) 03/26/2022 Office Visit Cardiology Vitaliy Nobles MD [facility] CARDIOLOGY [place], [place] [address] (Wo rk) documented as of [...] 446 ms MUSE SYSTEM (Bezet) Calculated P Lind[place] 37 degrees MUSE SYSTEM Calculated R [place] -23 degrees MUSE SYSTEM Calculated T [place] 116 degrees MUSE SYSTEM INTERPRETATION Normal sinus rhythm MUSE SYSTEM Inferior infarct (cited on or before 25-JAN-2013) ST & T wave abnormality, consider anterolateral ischemia Abnormal ECG When compared with ECG of 19-AUG-2017 10:23, No significant change was found Confirmed by MD Castellon Daniel ([id number]) on 09/08/2019 10:22:4 7 AM Specimen Anatomical [...] disease documented in this encounter Care Teams Miter Grinder Operator Relationship Specialty Start Date End Date Lovely Vicente MD PCP - General 04/16/[address] [place] [address] documented as of this encounter
--- OUTSIDE RECORDS SUMMARY | 2022-02-13 11:11 | XMS_ITS | Encounter Summary ---
:1945 Author Organization [place] [address] Care Team Providers Name Role Phone Lovely Vicente MD Primary Care Provider Reason for Referral Consultation (Routine) - Specialty Diagnoses / Procedures Referred By Contact Refer red To Contact [facility] Diagnoses Atheroembolism of foot, right Delayed surgical wound healing, subsequent encounter Aurelia Rivera PA [address] [facility] [place] [address] Referral ID Status Reason Start Date Expiration Date Visits V isits Requested Authorized [id number] Consult, 09/08/2017 03/07/2018 1 1 Test & Treat Reason for Visit Reason Comments Wound Check My foot hurts Encounter Details Date Type Department Care Team Description 09/07/2017 Office Visit Vascular Surgery at MiguelAurelia PA Atheroembolism of foot, right; [facility] [address] [facility] Delayed surgical wound healing, subseque nt encounter [facility] [place] [address] [phone] Social History Tobacco Use Types Packs/Day Years [...] at home for VAC dressing changes from [facility]. Since his last visit his right forefoot wound VAC care has improved [facility] maintained a better seal with [...] SETUP performed by Manny Mcknight MD at [facility] MA[facility] OR ??? PRO AMPUTATION FOOT, TRANSMETATARSAL Right 08/09/2017 AMPUTATION, TRANSMETATARSAL (WRVU 12.71) performed by Yonathan Smith MD at [facility] OR ??? PRO CABG, ARTERIAL, SINGLE N/A 07/07/2017 @CABG, USING ARTERIAL GRAFT;SINGLE ARTERIAL GRAFT (WRVU 33.75) performed by Yuan Retana MD at [facility] OR ??? PRO CABG, ARTERY-VEIN, TWO N/A 07/07/2017 @CABG, TWO VENOUS GRAFTS & ARTERIAL GRAFT (WRVU 7.93) performed by Yuan Retana MD at [facility] OR ??? PRO COLONOSCOPY, REMV LESN, SNARE 01/16/2014 COLONOSCOPY, POLYPECTOMY, REMOVAL LESION BY SNARE performed by Nohemi Jaimes MD at [facility] ENDOSCOPY ??? PRO DRESSING CHANGE UNDER ANESTHESIA Right 08/11/2017 (MSURG) DRESSING CHANGE (FOR OTHER THAN IVAN) UNDER ANES. (WRVU 0.86) performed by Lamar Smith MD at [facility] OR ??? PRO ENDOSCOPY W/VIDEO-ASST VEIN HARVEST, CABG Right 07/07/2017 ENDOSCOPIC HARVEST VEIN(S) FOR CABG (WRVU 0.31) performed by Yuan Retana MD at [facility] OR ??? PRO THYROIDECTOMY 03/28/2013 THYROIDECTOMY, TOTAL OR COMPLETE performed by Manny Mcknight MD at [facility] OR Social Hx: Social History Substance Use [...] Poole PA [facility] Cardiology Dept [place], [place] [address] (Wo rk) 03/26/2022 Office Visit Cardiology Vitaliy Nobles MD [facility] CARDIOLOGY [place], [place] [address] (Wo rk) Scheduled Referrals Name Type Priority Associated Diagnoses Order S chedule Referral to Wound Outpatient Referral Routine Atheroembolism o f foot, Ordered: Clinic right 09/08/2017 Delayed surgical wound healing, subsequent encounter documented as of this encounter Visit Diagnoses Diagnosis Atheroembolism of foot, right Delayed surgical wound healing, subseque nt encounter documented in this encounter Care Teams Vending Route Servicer Relationship Specialty Start Date End Date Lovely Vicente MD PCP - General 04/16/[address] [place] [address] documented as of this encounter
--- OUTSIDE RECORDS SUMMARY | 2022-02-13 11:11 | XMS_ITS | Encounter Summary ---
:1945 Author Organization [facility] [place] [address] Care Team Providers Name Role Phone Lovely Vicente MD Primary Care Provider Encounter Details Date Type Department Care Team Description 11/29/2017 Laboratory Lab 3L Barbara Wiseman systoli c congestive heart failure; Appointment [facility] ASCVD (ar teriosclerotic cardiovascular disease); Hospital Cardiomyopathy, [place] [address] Social History Tobacco Use Types [...] Appointment Lab 02/19/2022 Office Visit Cardiology Liz Poloe PA [facility] er Cardiology Dept [place], [place] [address] (Wo rk) 03/26/2022 Office Visit Cardiology Vitaliy Nobles MD [facility] ER CARDIOLOGY [place], [place] [address] (Wo rk) documented as of [...] Signature PT 23.0 (H) 9.4 - 12.5 [facility] LABORATORY INR 2.1 [facility] LABORATORY Comment: An INR <2.0 indicates [...] Organization Address City/State/[place] [address] (ABNORMAL) Basic Metabolic Panel (non-fasting) (11/29/2017 8:22 AM EDT) athologist Signature Glucose Lvl 217 (H) 65 - 199 [facility] mg/dL [facility] Comment: Diabetes: >=200 mg/dL plus symp toms BUN 26 (H) 10 - 20 mg/dL [facility] LABOR[facility]ORY Creatinine 0.96 0.80 - 1.50 mg/dL [facility] LABOR[facility] Sodium 137 135 - 145 mmol/L [facility] Potassium 4.1 3.5 - 5.0 mmol/L [facility] [...] mmol/L [facility] LABOR[facility] CO2 23 22 - 31 mmol/L [facility] Anion Gap 17 (H) 5 - 15 mmol/L [facility] LABOR[facility]ORY Calcium 8.5 8.5 - 10.5 mg/dL [facility] LABOR[facility]ORY Estimated GFR >60 >=60 [facility] Comment: The reported eGFR should be multiplied b y 1.2 for patients. The MDRD is not an appropriate measure o f renal function for patients with body mass extremes or in patients with acute kidney failure. http://[facility] [employer]/DHnkdep http://iHydroRun/DHnkf Specimen Anatomical Collection Method Collection Time Receive d Time (Source) Location / / Volume Laterality Blood specimen 11/29/2017 8:22 AM 018 8:29 (specimen) EDT AM EDT Resulting Agency Comment Spec In Lab Danette Maxwell APRN CHEMISTRY ORDERABLES Performing Organization Address City/State/[place] [address] (ABNORMAL) pro-Brain Natriuretic Peptide (11/29/2017 8:22 AM EDT) P athologist Signature ProBNP 1,769 (H) <=125 [facility] pg/mL [facility] LABOR[facility]ORY Specimen Anatomical Collection Method Collection Time Receive d Time (Source) Location / / Volume Laterality Blood specimen 11/29/2017 8:22 AM 018 8:29 (specimen) EDT AM EDT Resulting Agency Comment Spec In Lab Danette Maxwell APRN CHEMISTRY ORDERABLES Performing Organization Address City/State/ZIP Code Phon e Number [address] Lavender Tube HOLD (11/29/2017 8:14 AM EDT) [facility] gist Method Time Signature Lavender Hold Sample in [facility] lab. [facility] LABOR[facility]ORY Specimen Anatomical Collection Method Collection Time Receive d Time (Source) Location / / Volume Laterality Blood specimen No Charge / 11/29/2017 8:14 AM 018 8:29 (specimen) Unknown EDT AM EDT Lovely Vicente MD HEMATOLOGY ORDERABLES Performing Organization Address City/[facility]/ZIP [place] [address] documented in this encounter Visit Diagnoses Diagnosis Chronic systolic congestive heart failur e Chronic systolic heart failure ASCVD (arteriosclerotic cardiovascular d isease) Unspecified cardiovascular disease Cardiomyopathy, ischemic Other specified forms of chronic ischemi c heart disease documented in this encounter Care Teams Certified Court Interpreter Relationship Specialty Start Date End Date Lovely Vicente MD PCP - General 04/16/15 [address] [place] [address] documented as of this encounter
--- OUTSIDE RECORDS SUMMARY | 2022-02-13 11:11 | XMS_ITS | Encounter Summary ---
:1945 [place] [address] Care Team Providers Name Role Phone Lovely Vicente MD Primary Care Provider Encounter Details Date Type Department Care Team Description 07/12/2019 Office Visit Dermatology at [facility], Rigoberto Yarbrough (actinic keratosis); MD SHAY Quick III (seborrheic keratosis); [address] [facility] Multiple benign nevi; [place] [address] History of melanoma [phone] [facility]-DER[facility] [place], [place] [address] Social History Tobacco Use Types [...] encounter. Rigoberto Garcia MD Section of Dermatology [facility] documented in this encounter Plan of Treatment Upcoming Encounters Date Type Specialty Care Team Description 02/19/2022 Laboratory Appointment Lab 02/19/2022 Office Visit Cardiology Liz Poole PA [facility] er Cardiology Dept [place], [place] [address] (Wo rk) 03/26/2022 Office Visit Cardiology Vitaliy Nobles MD [facility] CARDIOLOGY [place], [place] [address] (Wo rk) documented as of this encounter Visit Diagnoses Diagnosis AK (actinic keratosis) Actinic keratosis SK (seborrheic keratosis) Other seborrheic keratosis Multiple benign nevi Benign neoplasm of skin, site unspecifie d History of melanoma Personal history of malignant melanoma o f skin documented in this encounter Care Teams Camera Prototyping Engineer Relationship Specialty Start Date End Date Lovely Vicente MD PCP - General 04/16/[address] [place] [address] documented as of this encounter
--- OUTSIDE RECORDS SUMMARY | 2022-02-13 11:11 | XMS_ITS | Encounter Summary ---
:1945 Author Organization [facility] [address] Care Team Providers Name Role Phone Lovely Vicente MD Primary Care Provider Reason for Referral Diagnostic Test (Routine) - Specialty Diagnoses / Procedures Referred By Contact Refer red To Contact Cardiology Diagnoses Chronic systolic heart failure Danette Maxwell APRN [facility] Non-Inv Card Lab Procedures Echocardiogram Transthoracic(Leb) [facility] [place] [phone] [place] [address] Referral ID Status Reason Start Date Expiration Visits Visits Date Requested Authorized [id number] Specialty 08/15/2018 08/15/2018 1 1 Service Requested Reason for Visit Diagnostic Test (Routine) - Specialty Diagnoses / Procedures Referred By Contact Nawaf owen To Contact Cardiology Diagnoses Chronic systolic heart failure Danette Maxwell APRN [facility] Non-Inv Card Lab Procedures Echocardiogram Transthoracic(Leb) [facility] [place] [address] [place] [address] Referral ID Status Reason Start Date Expiration Visits Visits Date Requested Authorized [id number] Specialty 08/15/2018 08/15/2018 1 1 Service Requested Encounter Details Date Type Department Care Team Description 08/15/2018 Hospital Encounter Non-Invasive Danette Maxwell Chron ic systolic Cardiology Lab Barbara Gomes APRN heart failure [facility] [place] [address] [place] [phone] [address] (Work) [phone] Social History Tobacco Use Types Packs/Day Years [...] Poole PA [facility] Cardiology Dept [place], [place] [address] (Wo rk) 03/26/2022 Office Visit Cardiology Vitaliy Nobles MD [facility] CARDIOLOGY [place], [place] [address] (Wo rk) documented as of [...] Mccollum ? (Age): 1945(73y) Med Rec#: ? [id number] ?Sex: ?M ? [place] Loc[place] ? [facility] ?Ht / Wt: ??172(cm)/81(kg) Pt. Loc: ?Echo Lab ?BSA: ?1.94 Study Date: ?? 08/15/2018 ?Pt. Type: Outpatient Tape: ? Referring: MARY ELLEN Reading: Scott Ortega ([id number]) Batch Room Technician: Laura Sargent Diagnosis: *Chronic systolic (congestive) heart [...] E-wave Vmax ?1.2 ?m/sec ? MV deceleration [id number] ? msec ? MV A-wave Vmax ?0.7 [...] ? Mid-Inferior ?Hypokinetic ? Mid-Inferoseptal ?Hypokinetic ? [place]-Septal ? Akinetic ? [place]-Anterior ? Hypokinetic ? [place]-Lateral ?Akinetic ? [place]-Inferior ? Hypokinetic ? [place]-Tip ?Akinetic ? This report has been electronically sign ed by: _ Scott Ortega M.D. ? 08/15/2018 08:17:26 Images reviewed and interpretation elvie wanda [facility] Cardiac Ultrasound Laboratory Procedure Note Scott Ortega MD - 08/15/2018Format ting of this note might be different from the original. Procedure: Transthoracic Echocardiogram Patient: NATALYA MCBRIDE(Age): [birth year]73y) Med Rec#: [id number] Sex: M [place] Loc: [facility] Ht / Wt: 172(cm)/81(kg) Pt. Loc: Echo Lab BSA: 1.94 Study Date: 08/15/2018 Pt. Type: Outpati ent Tape: Referring: MARY ELLEN Reading: Scott Ortega ([id number]) Batch Room Technician: Laura Sargent Diagnosis: *Chronic systolic (congestive) heart [...] MV E-wave Vmax 1.2 m/sec MV deceleration [id number] msec MV A-wave Vmax 0.7 m/sec MV [...] Akinetic Mid-Posterolateral Akinetic Mid-Inferior Hypokinetic Mid-Inferoseptal Hypokinetic [place]-Septal Akinetic [place]-Anterior Hypokinetic [place]-Lateral Akinetic [place]-Inferior Hypokinetic [place]-Tip Akinetic This report has been electronically sign ed by: _ Scott Ortega M.D. 08/15/2018 08:17: 26 Images reviewed and interpretation verif ied [facility] Cardiac Ultrasound Laboratory Danette Maxwell APRN [...] Routine documented in this encounter Care Teams Garage Door Installer Relationship Specialty Start Date End Date Lovely Vicente MD PCP - General 04/16/[address] [place] [address] [address] [place] [address] documented as of this encounter
--- OUTSIDE RECORDS SUMMARY | 2022-02-13 11:11 | XMS_ITS | Encounter Summary ---
:1945 Author Organization [facility] [place] [address] Care Team Providers Name Role Phone Lovely Vicente MD Primary Care Provider Reason for Referral Diagnostic Test (Routine) - Closed Specialty Diagnoses / Procedures Referred By Contact Refer red To Contact Cardiology Diagnoses Ischemic cardiomyopathy Acute on chronic systolic congestive heart failure Danette Maxwell APRN [facility] Non-Inv Card Lab Procedures Echocardiogram Transthoracic(Leb) [facility] [place] [address] [place] [address] Referral ID Status Reason Start Date Expiration Date Visits V isits Requested Authorized [id number] Closed Specialty 08/30/2017 08/30/2018 1 1 Service Requested Reason for Visit Diagnostic Test (Routine) - Closed Specialty Diagnoses / Procedures Referred By Contact Refer red To Contact Cardiology Diagnoses Ischemic cardiomyopathy Acute on chronic systolic congestive heart failure Danette Maxwell APRN [facility] Non-Inv Card Lab Procedures Echocardiogram Transthoracic(Leb) [facility] [place] [address] [place] [address] Referral ID Status Reason Start Date Expiration Date Visits V isits Requested Authorized [id number] Closed Specialty 08/30/2017 08/30/2018 1 1 Service Requested Encounter Details Date Type Department Care Team Description 10/07/2017 Hospital Encounter Non-Invasive Ischemic cardiomyopathy; Cardiology Lab Barbara Craig on chronic systolic congest[place] [address] Social History Tobacco Use Types Packs/Day [...] [facility] [place], [place] [address] (Wo rk) 03/26/2022 Office Visit Cardiology Vitaliy Nobles MD [facility] ER DR CARDIOLOGY [place] [address] (Wo rk) documented as of this encounter [...] Mccollum ? (Age): 1945(72y) Med Rec#: ? [id number] ?Sex: ?M ? Site Loc: ? [facility] ?Ht / Wt: ??173(cm)/82(kg) Pt. Loc: ?Echo Lab ?BSA: ?1.96 Study Date: ?? 10/07/2017 ?Pt. Type: Outpatient Tape: ? Referring: Danette Maxwell Reading: Iker Cuevas ([id number]) Monorail Charger Operator: Yonathan Bocanegra Diagnosis: *ICD-10-PCS Ischemic cardiomyopathy (I2 [...] E-wave Vmax ?1.2 ?m/sec ? MV deceleration [id number] ?msec ? MV A-wave Vmax ?1 ?m/sec [...] ? Mid-Inferior ?Hypokinetic ? Mid-Inferoseptal ?Hypokinetic ? [place]-Septal ? Akinetic ? [place]-Anterior ? Hypokinetic ? [place]-Lateral ?Hypokinetic ? [place]-Inferior ? Hypokinetic ? [place]-Tip ?Akinetic ? This report has been electronically sign ed by: _ Iker Cuevas M.D. ? 10/07/2017 11:12:34 Images reviewed and interpretation verif ied [facility] Cardiac Ultrasound Laboratory Procedure Note Iker Cuevas MD - 10/07/2017Formatti ng of this note might be different from the original. Procedure: Transthoracic Echocardiogram Patient: NATALYA MCBRIDE(Age): [birth year]72y) Med Rec#: [id number] Sex: M Site Loc: [facility] Ht / Wt: 173(cm)/82(kg) Pt. Loc: Echo Lab BSA: 1.96 Study Date: 10/07/2017 Pt. Type: Outpati ent Tape: Referring: Danette Maxwell Reading: Iker Cuevas ([id number]) Monorail Charger Operator: Yonathan Bocanegra Diagnosis: *ICD-10-PCS Ischemic cardiomyopathy (I2 [...] MV E-wave Vmax 1.2 m/sec MV deceleration [id number] msec MV A-wave Vmax 1 m/sec MV [...] Akinetic Mid-Posterolateral Hypokinetic Mid-Inferior Hypokinetic Mid-Inferoseptal Hypokinetic [place]-Septal Akinetic [place]-Anterior Hypokinetic [place]-Lateral Hypokinetic [place]-Inferior Hypokinetic [place]-Tip Akinetic This report has been electronically sign ed by: _ Iker Cuevas M.D. 10/07/2017 11:12 :34 Images reviewed and interpretation elvie hwang [facility] Cardiac Ultrasound Laboratory Danette A Hans [...] Routine documented in this encounter Care Teams Vamper Relationship Specialty Start Date End Date Lovely Vicente MD PCP - General 04/16/[address] [place] [address] documented as of this encounter
--- OUTSIDE RECORDS SUMMARY | 2022-02-13 11:11 | XMS_ITS | Encounter Summary ---
:1945 [place] [address] Care Team Providers Name Role Phone Lovely Vicente MD Primary Care Provider Reason for Visit Reason Comments Skin Cancer Examination Encounter Details Date Type Department Care Team Description 03/20/2021 Office Visit Dermatology at [facility] Brennen Rene MD History of melanoma; [facility] History of dysplastic nevus; [address] Multiple benign nevi; [place] [address] [facility] SK (seborrheic keratosis); [phone] [address]-DERMATOLOGY [place] (actinic keratosis) [place], [place] [address] Social History Tobacco Use Types [...] no SOCIAL HISTORY 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 Last visit at [facility] Derm: 01/02/2020 Medications: Reviewed in eD-H Allergies: [...] FSE; history of Melanoma []Note routed to financial secretary [x]Recall has been placed in scheduling system []Appointment scheduled at checkout Scribe attestation: Yoana Pang LPN has performed the documentation for this encounter in the presence of and acting as a scribe for LAURA RENE MD I performed the above scribed service and agree with the accuracy of the documentation in this encounter. Reviewed and signed by: LAURA RENE MD Dermatology [facility] documented in this encounter Plan of Treatment Upcoming Encounters Date Type Specialty Care Team Description 02/19/2022 Laboratory Appointment Lab 02/19/2022 Office Visit Cardiology Vendetti, Liz, [facility] [place], [place] [address] (Wo rk) 03/26/2022 Office Visit Cardiology Vitaliy Nobles MD [facility] C[facility] [place], [place] [address] (Wo rk) documented as of this encounter Visit Diagnoses Diagnosis History of melanoma Personal history of malignant melanoma o f skin History of dysplastic nevus Personal history of diseases of skin and subcutaneous tissue Multiple benign nevi Benign neoplasm of skin, site unspecifie d [place] (seborrheic keratosis) Other seborrheic keratosis [place] (actinic keratosis) Actinic keratosis documented in this encounter Care Teams Icu Staff Nurse Relationship Specialty Start Date End Date Lovely Vicente MD PCP - General 04/16/[address] [place] [address] documented as of this encounter
--- OUTSIDE RECORDS SUMMARY | 2022-02-13 11:11 | XMS_ITS | Encounter Summary ---
:1945 Author Organization [facility] [place] [address] Care Team Providers Name Role Phone Lovely Vicente MD Primary Care Provider Encounter Details Date Type Department Care Team Description 11/29/2017 Office Visit Cardiology at [facility] Annette Maxwell Chronic systolic congestive heart failure; [facility] A, ACCOUNT EXECUTIVE AGRIBUSINESS ASCVD (arteriosclerotic cardiovascular d isease); 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 [...] using left greater saphenous vein ([place] [facility] debridement of right foot with wound vac [...] right popliteal-pedal bypass at [facility] ? Plan: 1. A review of [...] 02/19/2022 Office Visit Cardiology Liz Poole PA [facility] Cardiology Dept [place], [place] [address] (Wo rk) 03/26/2022 Office Visit Cardiology Vitaliy Nobles MD [facility] CARDIOLOGY [place], [place] [address] (Wo rk) documented as of this encounter Results Arterial Duplex Leg, Unil (11/29/2017 10:32 AM EDT) Component Value Ref Test Analysis Performed At [facility] Range Method Time Signature VB Text Department: Vascular Surgery Lab VASCUBASE Report Patient: [id number] (GREGORY HONAG) CPT: 87814 ICD10: I72.4;I73.9 Referring Physician: ANNETTE MAXWELL ?? [...] returned to cardiology. Electronically Signed by: ELIZABETH LLNAOS on 2017-12-06 06:24: 49 PM VB Text [...] Glucose Lvl 217 (H) 65 - 199 [facility] mg/dL [facility] Comment: Diabetes: >=200 mg/dL plus symp toms BUN 26 (H) 10 - 20 mg/dL [facility] Creatinine 0.96 0.80 - 1.50 mg/dL [facility] [...] Chloride 97 (L) 98 - 107 mmol/L [facility] CO2 23 22 - 31 mmol/L [facility] Anion Gap 17 (H) 5 - 15 mmol/L [facility] Calcium 8.5 8.5 - 10.5 mg/dL [facility] Estimated GFR >60 >=60 [facility] Comment: The reported eGFR should be multiplied b y 1.2 for patients. The MDRD is not an appropriate measure o f renal function for patients with body mass extremes or in patients with acute kidney failure. http://[employer].DivvyDown/DHnkdep http://real5D/DHMCnkf Specimen Anatomical Collection Method Collection Time Receive d Time (Source) Location / / Volume Laterality Blood specimen 11/29/2017 8:22 AM 018 8:29 (specimen) EDT AM EDT Resulting Agency Comment Spec In Lab Annette Maxwell APRN CHEMISTRY ORDERABLES Performing Organization Address City/State/[place] [address] (ABNORMAL) pro-Brain Natriuretic Peptide (11/29/2017 8:22 AM EDT) athologist Signature ProBNP 1,769 (H) <=125 [facility] pg/mL [facility] Specimen Anatomical Collection Method Collection Time Receive d Time (Source) Location / / Volume Laterality Blood specimen 11/29/2017 8:22 AM 018 8:29 (specimen) EDT AM EDT Resulting Agency Comment Spec In Lab Annette Maxwell ACCOUNT EXECUTIVE AGRIBUSINESS CHEMISTRY ORDERABLES Performing Organization Address City/State/[place] [address] documented in this encounter Visit Diagnoses Diagnosis Chronic systolic congestive heart failur e Chronic systolic heart failure ASCVD (arteriosclerotic cardiovascular d isease) Unspecified cardiovascular disease Cardiomyopathy, ischemic Other specified forms of chronic ischemi c heart disease PAD (peripheral artery disease) Peripheral vascular disease, unspecified documented in this encounter Care Teams Finished Goods Planner Relationship Specialty Start Date End Date Lovely Vicente MD PCP - General 04/16/[address] [place] [address] documented as of this encounter
--- OUTSIDE RECORDS SUMMARY | 2022-02-13 11:11 | XMS_ITS | Encounter Summary ---
:1945 Author Organization [facility] Address [address] [place] [address] Care Team Providers Name Role Phone Lovely Vicente MD Primary Care Provider Encounter Details Date Type Department Care Team Description 01/02/2020 Office Visit Dermatology at [facility] ct[facility] keratoses; Abdelrahman HOOPER MD History of melanoma; [address] [facility] History of dysplastic nevus; [place] [address] Multiple benign nevi; [phone] [facility] Seborrheic yossi [place]; RD-DERMATOLGY Skin exam for malignant neoplasm [place], [place] [address] Social History Tobacco Use Types [...] Visit Cardiology Liz Poole PA [facility] [place], [place] [address] (Wo rk) 03/26/2022 Office Visit Cardiology Vitaliy Nobles MD [facility] CARDIOLOGY [place], [place] [address] (Wo rk) documented as of [...] skin documented in this encounter Care Teams Machine Specialist Relationship Specialty Start Date End Date Lovely Vicente MD PCP - General 04/16/[address] [place] [address] documented as of this encounter
--- OUTSIDE RECORDS SUMMARY | 2022-02-13 11:11 | XMS_ITS | Encounter Summary ---
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 [...] by Dr. Espino On IV antibiotics at [facility] Today: Mr. Fatima is accompanied by his [...] continue to see Dr. Bains well at [facility] and follow his wound on his right lower extremity. And she will continue to direct antibiotic treatment. Ihave asked that the echocardiogram results be faxed to Dr. Zurita at [facility]. 1. ASCVD Continue ASA, BB and statin [...] and bone removal by Dr. Aguero at [facility]. Currently receiving IV antibiotics at [facility] ? Plan: 1. A review of the [...] Poole PA [facility] Cardiology Dept [place], [place] [address] (Wo rk) 03/26/2022 Office Visit Cardiology Vitaliy Nobles MD [facility] CARDIOLOGY [place], [place] [address] (Wo rk) documented as of this encounter Results (ABNORMAL) Basic Metabolic Panel (non-fasting) (10/07/2017 8:48 AM EDT) athologist Signature Glucose Lvl 99 65 - 199 [facility] mg/dL [facility] Comment: Diabetes: >=200 mg/dL plus symp toms BUN 27 (H) 10 - 20 mg/dL [facility] Creatinine 1.07 0.80 - 1.50 mg/dL [facility] Sodium 143 135 - 145 mmol/L [facility] Potassium 4.7 3.5 - 5.0 mmol/L [facility] [...] Anion Gap 13 5 - 15 mmol/L [facility] Calcium 8.4 (L) 8.5 - 10.5 mg/dL [facility] Estimated GFR >60 >=60 [facility] Comment: The reported eGFR should be multiplied b y 1.2 for patients. The MDRD is not an appropriate measure o f renal function for patients with body mass extremes or in patients with acute kidney failure. http://Arjuna [employer]/DHnkdep http://[employer]/DHMCnkf Specimen Anatomical Collection Method Collection Time Receive d Time (Source) Location / / Volume Laterality Blood specimen 10/07/2017 8:48 AM 018 8:50 (specimen) EDT AM EDT Resulting Agency Comment Spec In Lab Danette Maxwell APRN CHEMISTRY ORDERABLES Performing Organization Address City/[facility]/ZIP [place] [address] (ABNORMAL) pro-Brain Natriuretic Peptide (10/07/2017 8:48 AM EDT) P athologist Signature ProBNP 1,170 (H) <=125 [facility] pg/mL [facility] Specimen Anatomical Collection Method Collection Time Receive d Time (Source) Location / / Volume Laterality Blood specimen 10/07/2017 8:48 AM 018 8:50 (specimen) EDT AM EDT Resulting Agency Comment Spec In Lab Danette Maxwell APRN CHEMISTRY ORDERABLES Performing Organization Address City/State/Z[place] [address] documented in this encounter Visit Diagnoses Diagnosis Chronic systolic heart failure S/P CABG x 3 Postsurgical aortocoronary bypass status On amiodarone therapy Atrial fibrillation, unspecified type ASCVD (arteriosclerotic cardiovascular d isease) Unspecified cardiovascular disease documented in this encounter Care Teams Room Attendants Relationship Specialty Start Date End Date Lovely Vicente MD PCP - General 04/16/[address] [place] [address] documented as of this encounter
--- OUTSIDE RECORDS SUMMARY | 2022-02-13 11:11 | XMS_ITS | Encounter Summary ---
:1945 Author Organization [facility] [place] [address] Care Team Providers Name Role Phone Lovely Vicente MD Primary Care Provider Encounter Details Date Type Department Care Team Description 07/28/2019 Office Visit Cardiology at [facility] Danette Maxwell Chronic systolic heart failu re; [facility] A, STACIE ASHD (arteriosclerotic heart disease); Drive [facility] S/P CABG x 3; [place], [place] MARIA VICTORIA (obstructive sleep apnea) on CPAP; [phone] CARDIOLOGY Mixed hyperlipidemia [phone] [place], [place] [address] Social History Tobacco Use Types [...] in this encounter Progress Notes Danette Maxwell, BLACK STUDIES PROFESSOR - 07/28/2019 9:40 AM EST Images from [...] regurgitation present. 07/07/2019 - 07/21/2019 Zio Patch Pre Sales Network Engineer The patient had a minimum heart rate [...] K+ 4.5 today 6. Post-op atrial fibrillation [id number] (CHF, HTN, DM, vascular disease, thromboembolism) Amiodarone discontinued Continue coumadin INR managed by PCP 7. PAD 08/06/2017: Right 1st, 2nd, 3rd toe amputation 08/11/2017: Left??femoral arterial access, RLE??angiogram, Balloon angioplasty of R PT with Eleazar 2.5 x 80 10/25/2017: right popliteal-pedal bypass at [facility] 8. Hypothyrodism S/p thyroidectomy for goiter [...] advised: Refer to EP (Dr. Mcelroy in [place]) 5. Heart Failure Clinic follow up scheduled for: 3 months with proBNP and BMP Danette Maxwell APRN 07/28/2019 documented in this encounter Plan of Treatment Upcoming Encounters Date Type Specialty Care Team Description 02/19/2022 Laboratory Appointment Lab 02/19/2022 Office Visit Cardiology Liz [facility]ole PA [facility] [place], [place] [address] (Wo rk) 03/26/2022 Office Visit Cardiology Vitaliy Nobles MD [facility] CARDIOLOGY [place], [place] [address] (Wo rk) documented as of this encounter Results (ABNORMAL) Basic Metabolic Panel (non-fasting) (07/28/2019 8:36 AM EST) athologist Signature Glucose Lvl 153 65 - 199 [facility] mg/dL [facility] Comment: Diabetes: >=200 mg/dL plus symp toms BUN 22 (H) 10 - 20 mg/dL [facility] Creatinine 1.05 0.80 - 1.50 mg/dL [facility] Sodium 141 135 - 145 mmol/L [facility] [...] LABORATORY Calcium 9.3 8.5 - 10.5 mg/dL [facility] Estimated GFR 70 >=60 mL/min/1.73 m?? [facility] Comment: The eGFR was calculated using the CKD-EP I equation. As with all creatinine based estimates of kidney function, eGFR values calculated with the CKD-EPI equation are not accurate in patients wi th acute kidney failure, extremes of body mass or the acutely ill. http://Xhale/DHMCnkf eGFR 81 >=60 mL/min/1.73 m?? [facility] Comment: The eGFR was calculated using the CKD-EP I equation. As with all creatinine based estimates of kidney function, eGFR values calculated with the CKD-EPI equation are not accurate in patients wi th acute kidney failure, extremes of body mass or the acutely ill. http://Xhale/[facility] Specimen Anatomical Collection Method Collection Time Receive d Time (Source) Location / / Volume Laterality Blood specimen 07/28/2019 8:36 AM 020 8:46 (specimen) EST AM EST Resulting Agency Comment Spec In Lab Danette Maxwell STACIE CHEMISTRY ORDERABLES Performing Organization Address City/State/[place] [address] (ABNORMAL) pro-Brain Natriuretic Peptide (07/28/2019 8:36 AM EST) P athologist Signature ProBNP 647 (H) <=125 pg/mL [facility] Specimen Anatomical Collection Method Collection Time Receive d Time (Source) Location / / Volume Laterality Blood specimen 07/28/2019 8:36 AM 020 8:46 (specimen) EST AM EST Resulting Agency Comment Spec In Lab Danette Maxwell STACIE CHEMISTRY ORDERABLES Performing Organization Address City/State/[place] [address] documented in this encounter Visit Diagnoses Diagnosis Chronic systolic heart failure ASHD (arteriosclerotic heart disease) Coronary atherosclerosis of unspecified type of vessel, [place] or graft S/P CABG x 3 Postsurgical aortocoronary bypass status MARIA VICTORIA (obstructive sleep apnea) on CPAP Obstructive sleep apnea (adult) (pediatr ic) Mixed hyperlipidemia documented in this encounter Care Teams Revenue Cycle Manager Relationship Specialty Start Date End Date Lovely Vicente MD PCP - General 04/16/[address] [place] [address] documented as of this encounter
--- OUTSIDE RECORDS SUMMARY | 2022-02-13 11:11 | XMS_ITS | Encounter Summary ---
:1945 Author Organization [facility] Address [address] [place] [address] Care Team Providers Name Role Phone Lovely Vicente MD Primary Care Provider Reason for Referral Diagnostic Test (Routine) - Closed Specialty Diagnoses / Procedures Referred By Contact Refer red To Contact Cardiology Diagnoses Chronic systolic heart failure Danette Maxwell APRN [facility] Non-Inv Card Lab Procedures Echocardiogram Transthoracic(Leb) [facility] [address] [place] [address] [place] [address] Referral ID Status Reason Start Date Expiration Date Visits V isits Requested Authorized [id number] Closed Specialty 07/17/2019 09/14/2019 1 1 Service Requested Encounter Details Date Type Department Care Team Description 01/16/2019 Office Visit Cardiology at [facility] Danette Maxwell, Chronic systolic heart failu re; [facility] STACIE Cardiomyopathy, ischemic; Drive [facility] Hx of thyroid cancer; [place], [place] DR [place] (arteriosclerotic heart disease); [phone] CARDIOLOGY MARIA VICTORIA (obstructive sleep apnea) on CPAP [phone] [place], [place] [address] (Wo rk) Social History Tobacco Use Types [...] K+ 4.6 today 6. Post-op atrial fibrillation [id number] 7 (CHF, HTN, DM, vascular disease, thromboembolism) Amiodarone discontinued Continue coumadin INR managed by PCP. 2.1 today 7. PAD 08/06/2017: Right 1st, 2nd, 3rd toe amputation 08/11/2017: Left??femoral arterial access, RLE??angiogram, Balloon angioplasty of R PT with Eleazar 2.5 x 80 10/25/2017: right popliteal-pedal bypass at [facility] 8. Hypothyrodism S/p thyroidectomy for [...] [facility] [place], [place] [address] (Wo rk) 03/26/2022 Office Visit Cardiology Vitaliy Nobles MD [facility] ER CARDIOLOGY [place], [place] [address] (Wo rk) documented as of this encounter Results ECHOCARDIOGRAM COMPLETE W CONTRAST (07/28/2019 8:19 AM EST) P athologist Signature EF 40 HEARTLAB SYSTEM Specimen (Source) Anatomical Location Collection Method / Collectio n Time Received Time / Laterality Volume 07/28/2019 Narrative HEARTLAB SYSTEM - 07/28/2019 8:38 AM EST Procedure: ?Transthoracic Echocardiogram Patient: ?NATALYA Mccollum ? (Age): 1945(74y) Med Rec#: ? [id number] ?Sex: ?M ? Site Loc: ? [facility] ?Ht / Wt: ??172(cm)/81(kg) Pt. Loc: ?Echo Lab ?BSA: ?1.94 Study Date: ?? 07/28/2019 ?Pt. Type: Outpatient Tape: ? Referring: MARY ELLEN Reading: Ifeanyi Truong ([id number]) Sander Wooden Pencils: Fadumo Flanagan RDCS, REGINA Diagnosis: *Chronic systolic [...] E-wave Vmax ?1 ?m/sec ? MV deceleration [id number] ? msec ? MV A-wave Vmax ?1 [...] ? Pulmonic Valve/Qp:Qs ?Value ?Units (Range) ? ME end-diastolic Vma1.1 ?m/sec ? Wall Motion: Segment Name ?Rest ? Base-Anteroseptal ?? Normal ? Base-Anterior ? Normal ? Base-Anterolateral ??Normal ? Base-Posterolateral Normal ? Base-Inferior ? Akinetic ? Base-Inferoseptal ?? Normal ? Mid-Anteroseptal ?Normal ? Mid-Anterior ?Hypokinetic ? Mid-Anterolateral ?? Normal ? Mid-Posterolateral ??Normal ? Mid-Inferior ?Hypokinetic ? Mid-Inferoseptal ?Normal ? [place]-Septal ? Normal ? [place]-Anterior ? Hypokinetic ? [place]-Lateral ?Normal ? [place]-Inferior ? Akinetic ? [place]-Tip ?Hypokinetic ? This report has been electronically sign ed by: _ Ifeanyi Truong M.D. ? 07/28/2019 0 8:38:01 Images [facility] Procedure Note Ifeanyi Truong MD - 07/28/2019Formatt ing of this note might be different from the original. Procedure: Transthoracic Echocardiogram Patient: NATALYA MCBRIDE(Age): [birth year]74y) Med Rec#: [id number] Sex: M Site Loc: [facility] Ht / Wt: 172(cm)/81(kg) Pt. Loc: Echo Lab BSA: 1.94 Study Date: 07/28/2019 Pt. Type: Outpati ent Tape: Referring: MARY ELLEN Reading: Ifeanyi Truong ([id number]) Sander Wooden Pencils: Fadumo Flanagan RDCS, FASE Diagnosis: *Chronic systolic [...] MV E-wave Vmax 1 m/sec MV deceleration znrg251.5 msec MV A-wave Vmax 1 m/sec MV [...] 0.7 ratio Pulmonic Valve/Qp:Qs Value Units (Range) ME end-diastolic Vma1.1 m/sec Wall Motion: Segment Name Rest Base-Anteroseptal Normal Base-Anterior Normal Base-Anterolateral Normal Base-Posterolateral Normal Base-Inferior Akinetic Base-Inferoseptal Normal Mid-Anteroseptal Normal Mid-Anterior Hypokinetic Mid-Anterolateral Normal Mid-Posterolateral Normal Mid-Inferior Hypokinetic Mid-Inferoseptal Normal [place]-Septal Normal [place]-Anterior Hypokinetic [place]-Lateral Normal [place]-Inferior Akinetic [place]-Tip Hypokinetic This report has been electronically sign ed by: _ Ifeanyi Truong M.D. 07/28/2019 08:38:0 1 Images reviewed and interpretation verif iewanda [facility] Cardiac Ultrasound Laboratory Danette Maxwell APRN ECHO ORDERABLES Performing Organization Address City/State/ZIP Code Phon e Number HEARTLAB SYSTEM (ABNORMAL) Basic Metabolic Panel (non-fasting) (01/16/2019 7:49 AM EDT) P athologist Signature Glucose Lvl 105 65 - 199 [facility] mg/dL [facility] Comment: Diabetes: >=200 mg/dL plus symp toms BUN 25 (H) 10 - 20 mg/dL [facility] Creatinine 1.08 0.80 - 1.50 mg/dL [facility] Sodium 145 135 - 145 mmol/L [facility] Potassium 4.7 3.5 - 5.0 mmol/L [facility] Comment: Please note: ??Patients with WBC >100,00 0 may have falsely elevated Potassium levels. ??For accurate Potassium quantif ication in these patients send serum separator tube (gold top) for subsequent determinations. ??Contact the Clinical Chemistry Laboratory if there are any qu estions. Chloride 106 98 - 107 mmol/L [facility] CO2 26 22 - 31 mmol/L [facility] Anion Gap 13 5 - 15 mmol/L [facility] Calcium 9.2 8.5 - 10.5 mg/dL [facility] Estimated GFR 68 >=60 mL/min/1.73 m?? [facility] Comment: The eGFR was calculated using the CKD-EP I equation. As with all creatinine based estimates of kidney function, eGFR values calculated with the CKD-EPI equation are not accurate in patients wi th acute kidney failure, extremes of body mass or the acutely ill. http://[employer]/Synforankf eGFR 79 >=60 mL/min/1.73 m?? [facility] Comment: The eGFR was calculated using the CKD-EP I equation. As with all creatinine based estimates of kidney function, eGFR values calculated with the CKD-EPI equation are not accurate in patients wi th acute kidney failure, extremes of body mass or the acutely ill. http://[employer]/DHnkf Specimen Anatomical Collection Method Collection Time Receive d Time (Source) Location / / Volume Laterality Blood specimen 01/16/2019 7:49 AM 019 7:55 (specimen) EDT AM EDT Resulting Agency Comment Spec In Lab Danette Maxwell APRN CHEMISTRY ORDERABLES Performing Organization Address City/State/Z[place] [address] (ABNORMAL) pro-Brain Natriuretic Peptide (01/16/2019 7:49 AM EDT) P athologist Signature ProBNP 780 (H) <=125 pg/mL [facility] Specimen Anatomical Collection Method Collection Time Receive d Time (Source) Location / / Volume Laterality Blood specimen 01/16/2019 7:49 AM 019 7:55 (specimen) EDT AM EDT Resulting Agency Comment Spec In Lab Danette Maxwell APRN CHEMISTRY ORDERABLES Performing Organization Address City/State/ZIP Code Ph[place] [address] documented in this encounter Visit Diagnoses Diagnosis Chronic systolic heart failure Cardiomyopathy, ischemic Other specified forms of chronic ischemi c heart disease Hx of thyroid cancer Personal history of malignant neoplasm o f thyroid ASHD (arteriosclerotic heart disease) Coronary atherosclerosis of unspecified type of vessel, [place]-apache or graft MARIA VICTORIA (obstructive sleep apnea) on CPAP Obstructive sleep apnea (adult) (pediatr ic) Chronic systolic heart failure documented in this encounter Care Teams Fabric Pattern Grader Relationship Specialty Start Date End Date Lovely Vicente MD PCP - General 04/16/[address] [place] [address] documented as of this encounter
--- OUTSIDE RECORDS SUMMARY | 2022-02-13 11:11 | XMS_ITS | Encounter Summary ---
:1945 Author Organization [facility] [place] [address] Care Team Providers Name Role Phone Lovely Vicente MD Primary Care Provider Encounter Details Date Type Department Care Team Description 09/16/2017 Hospital [place] [address] Social History Tobacco Use Types Packs/Day [...] Visit Cardiology Liz Poole PA [facility] er Cardiology Dept [place], [place] [address] (Wo rk) 03/26/2022 Office Visit Cardiology Vitaliy Nobles MD [facility] ER CARDIOLOGY [place], [place] [address] (Wo rk) documented as of this encounter Procedures Procedure Name Priority Date/Time Associated Diagnosis Comme [facility] SURGICAL PATHOLOGY Routine 09/16/2017 7:28 AM Res ults for this REPORT EST procedure are i n the results section. documented in this encounter Results Surgical Pathology Report (09/16/2017 7:28 AM EST) Component Value Ref Test Analysis Performed At [facility] Range Method Time Signature Surgical [id number] ? Location: [facility] Pathology RYAN Report The signing pathologist has [...] Henrique Flower Verified: ??09/24/2017 ?Pathologist Performed at: ??-[facility] Dept. of Pathology, [place], [place] CLINICAL INFORMATION Specimen Submitted: A - [...] Organization Address City/State/ZIP Code Phon e Number [place], [place] [id number] [place] [address] documented in this encounter Visit Diagnoses Not on filedocumented in this encounter Care Teams Button Breaker Operator Relationship Specialty Start Date End Date Lovely Vicente MD PCP - General 04/16/[address] [place] [address] documented as of this encounter
--- OUTSIDE RECORDS SUMMARY | 2022-02-13 11:11 | XMS_ITS | Encounter Summary ---
:1945 [place] [address] Care Team Providers Name Role Phone Lovely Vicente MD Primary Care Provider Encounter Details Date Type Department Care Team Description 11/29/2017 Hospital Encounter Radiology Library at Estefany Maxwell Pain [facility] [employer]IFT SUPERVISOR [facility] [place] [address] CARDIOLOGY [phone] [place], [place] [address] (Wo rk) Social History Tobacco [...] MINI 31 gauge x 4 times daily. 3 Needle acetaminophen Take 2 tablets by 0 [...] Liz Poole PA [facility] Cardiology Dept [place], [place] [address] (Wo rk) 03/26/2022 Office Visit Cardiology Vitaliy Nobles MD [facility] CARDIOLOGY [place], [place] [address] (Wo rk) documented as of [...] Organization Address City/State/ZIP Code Phon e Number [place], [place] documented in this encounter Visit Diagnoses Diagnosis Pain Generalized pain documented in this encounter Care Teams Biazzi Nitrator Operator Relationship Specialty Start Date End Date Lovely Vicente MD PCP - General 04/16/[address] [place] [address] documented as of this encounter
--- OUTSIDE RECORDS SUMMARY | 2022-02-13 11:11 | XMS_ITS | Encounter Summary ---
:1945 Author Organization [facility] [place] [address] Care Team Providers Name Role Phone Lovely Vicente MD Primary Care Provider Encounter Details Date Type Department Care Team Description 04/18/2018 Laboratory Appointment Lab 3L [facility] [place] [address] Social History Tobacco Use Types Packs/Day Years [...] Office Visit Cardiology Liz Poole PA [facility] er Cardiology Dept [place], [place] [address] (Wo rk) 03/26/2022 Office Visit Cardiology Vitaliy Nobles MD [facility] CARDIOLOGY [place], [place] [address] (Wo rk) documented as [...] Signature Total Protein 7.6 6.1 - 8.0 [facility] RYAN gm/dL [facility] Albumin 4.0 3.2 - 5.2 [facility] RYAN gm/dL [facility] AST 36 0 - 39 [facility] RYAN unit/L [facility] ALT 27 0 - 55 [facility] RYAN unit/L [facility] Alk Phos 96 40 - 120 [facility] TapInko unit/L [facility] Total 0.7 0.2 - 1.3 [employer] Bilirubin mg/dL [facility] Bili, Direct 0.1 0.0 - 0.3 [facility] RYAN mg/dL [facility] Specimen Anatomical Collection Method Collection Time Receive d Time (Source) Location / / Volume Laterality Blood specimen Venous Draw / 04/18/2018 9:19 AM 2017 9:44 (specimen) Unknown EDT AM EDT Resulting Agency Comment Spec In Lab Danette Maxwell APRN CHEMISTRY ORDERABLES Performing Organization Address City/State/ZIP [place] [address] TSH (04/18/2018 9:19 AM EDT) athologist Signature TSH 1.77 0.27 - 4.20 [employer] mlU/ML [facility] Specimen Anatomical Collection Method Collection Time Receive d Time (Source) Location / / Volume Laterality Blood specimen Venous Draw / 04/18/2018 9:19 AM 2017 9:44 (specimen) Unknown EDT AM EDT Resulting Agency Comment Spec In Lab Danette Maxwell APRN CHEMISTRY ORDERABLES Performing Organization Address City/State/ZIP [place] [address] (ABNORMAL) Basic Metabolic Panel (non-fasting) (04/18/2018 9:19 AM EDT) P athologist Signature Glucose Lvl 167 65 - 199 [facility] mg/dL [facility] Comment: Diabetes: >=200 mg/dL plus symp toms BUN 18 10 - 20 mg/dL [facility] Creatinine 1.19 0.80 - 1.50 mg/dL [facility] Sodium 147 (H) 135 - 145 mmol/L [facility] Potassium 4.8 3.5 - 5.0 mmol/L [facility] [...] [facility] Anion Gap 23 (H) 5 - 15 mmol/L [facility] Calcium 9.3 8.5 - 10.5 mg/dL [facility] Estimated GFR 61 >=60 mL/min/1.73 m?? [facility] Comment: The eGFR was calculated using the CKD-EP I equation. As with all creatinine based estimates of kidney function, eGFR values calculated with the CKD-EPI equation are not accurate in patients wi th acute kidney failure, extremes of body mass or the acutely ill. http://Earnest/DHMCnkf eGFR 70 >=60 mL/min/1.73 m?? [facility] Comment: The eGFR was calculated using the CKD-EP I equation. As with all creatinine based estimates of kidney function, eGFR values calculated with the CKD-EPI equation are not accurate in patients wi th acute kidney failure, extremes of body mass or the acutely ill. http://KlickThruBizeeBee/DHMCnkf Specimen Anatomical Collection Method Collection Time Receive d Time (Source) Location / / Volume Laterality Blood specimen 04/18/2018 9:19 AM 018 9:34 (specimen) EDT AM EDT Resulting Agency Comment Spec In Lab Danette Maxwell STACIE CHEMISTRY ORDERABLES Performing Organization Address City/[facility]/ZIP [place] [address] (ABNORMAL) pro-Brain Natriuretic Peptide (04/18/2018 9:19 AM EDT) P athologist Signature ProBNP 2,199 (H) <=125 [facility] pg/mL [facility] Specimen Anatomical Collection Method Collection Time Receive d Time (Source) Location / / Volume Laterality Blood specimen 04/18/2018 9:19 AM 018 9:34 (specimen) EDT AM EDT Resulting Agency Comment Spec In Lab Danette A Hans STACIE CHEMISTRY ORDERABLES Performing Organization Address City/[facility]/ZIP [place] [address] documented in this encounter Visit Diagnoses Diagnosis Chronic systolic heart failure documented in this encounter Care Teams School Supervisor Relationship Specialty Start Date End Date Lovely Vicente MD PCP - General 04/16/[address] [place] [address] documented as of this encounter
--- OUTSIDE RECORDS SUMMARY | 2022-02-13 11:11 | XMS_ITS | Encounter Summary ---
:1945 Author Organization [facility] [place] [address] Care Team Providers Name Role Phone Lovely Vicente MD Primary Care Provider Encounter Details Date Type Department Care Team Description 11/07/2019 TH Visit Cardiology at [facility] Danette Maxwell (arteriosclerotic heart disease); (TeleHealth) [facility] STACIE Gomes Cardiomyopathy, ischemic; Drive [facility] S/P CABG x 3; [place], [place] MARIA VICTORIA (obstructive sleep apnea) on CPAP [phone] CARDIOLOGY [phone] [place], [place] [address] Social History Tobacco Use Types [...] regurgitation present. 07/07/2019 - 07/21/2019 [facility] Medical Doctor The patient had a minimum heart rate [...] at last check 6. Post-op atrial fibrillation [id number] 7 (CHF, HTN, DM, vascular disease, thromboembolism) Amiodarone discontinued Continue coumadin INR managed by PCP 7. PAD 08/06/2017: Right 1st, 2nd, 3rd toe amputation 08/11/2017: Left??femoral arterial access, RLE??angiogram, Balloon angioplasty of R PT with Eleazar 2.5 x 80 10/25/2017: right popliteal-pedal bypass at [facility] Continue Coumadin 8. Hypothyrodism S/p thyroidectomy for [...] [facility] Dept [place], [place] [address] (Wo rk) 03/26/2022 Office Visit Cardiology Vitaliy Nobles MD [facility] CARDIOLOGY [place], [place] [address] (Wo rk) documented as of this encounter Visit Diagnoses Diagnosis ASHD (arteriosclerotic heart disease) Coronary atherosclerosis of unspecified type of vessel, [place] or graft Cardiomyopathy, ischemic Other specified forms of chronic ischemi c heart disease S/P CABG x 3 Postsurgical aortocoronary bypass status MARIA VICTORIA (obstructive sleep apnea) on CPAP Obstructive sleep apnea (adult) (pediatr ic) documented in this encounter Care Teams Contact Lens Cutter Relationship Specialty Start Date End Date Lovely Vicente MD PCP - General 04/16/[address] [place], [place] [address]Y [facility] [address] [place] [address] documented as of this encounter
--- OUTSIDE RECORDS SUMMARY | 2022-02-13 11:12 | XMS_ITS | Encounter Summary ---
:1945 Author Organization [facility] [place] [address] Care Team Providers Name Role Phone Lovely Vicente MD Primary Care Provider Reason for Visit Reason Comments Follow-up I'm having trouble with the VAC Encounter Details Date Type Department Care Team Description 08/26/2017 Office Visit Vascular Surgery at [facility], STEPHANIE Mercado Atheroembolism of foot, right; [facility] [place] [address] Delayed surgical wound healing, initial encounter; [facility] VASCULAR SURG YEHUDA Acute on chronic systolic congestive hea rt failure ; [place], [place] [address] [phone] Social History Tobacco Use Types Packs/Day Years [...] home and into the care of the [facility]. However, since [place] from [facility] [place] he has had some difficulty with continuation [...] SETUP performed by Manny Mcknight MD at [facility] MAIN OR ??? PRO AMPUTATION FOOT, TRANSMETATARSAL Right 08/09/2017 AMPUTATION, TRANSMETATARSAL (WRVU 12.71) performed by Yonathan Smith MD at [facility] MAIN OR ??? PRO CABG, ARTERIAL, SINGLE N/A 07/07/2017 @CABG, USING ARTERIAL GRAFT;SINGLE ARTERIAL GRAFT (WRVU 33.75) performed by Yuan Retana MD at [facility] MAIN OR ??? PRO CABG, ARTERY-VEIN, TWO N/A 07/07/2017 @CABG, TWO VENOUS GRAFTS & ARTERIAL GRAFT (WRVU 7.93) performed by Yuan Retana MD at [facility] MAIN OR ??? PRO COLONOSCOPY, REMV LESN, SNARE 01/16/2014 COLONOSCOPY, POLYPECTOMY, REMOVAL LESION BY SNARE performed by Nohemi Jaimes MD at [facility] ENDOSCOPY ??? PRO DRESSING CHANGE UNDER ANESTHESIA Right 08/11/2017 (MSURG) DRESSING CHANGE (FOR OTHER THAN IVAN) UNDER ANES. (WRVU 0.86) performed by Lamar Smith MD at [facility] MAIN OR ??? PRO ENDOSCOPY W/VIDEO-ASST VEIN HARVEST, CABG Right 07/07/2017 ENDOSCOPIC HARVEST VEIN(S) FOR CABG (WRVU 0.31) performed by Yuan Retana MD at [facility] MAIN OR ??? PRO THYROIDECTOMY 03/28/2013 THYROIDECTOMY, TOTAL OR COMPLETE performed by Manny Mcknight MD at [facility] MAIN OR Social Hx: Social History Substance [...] 02/19/2022 Office Visit Cardiology Liz Poole PA [facility] [place], [place] [address] (Wo rk) 03/26/2022 Office Visit Cardiology Vitaliy Nobles MD [facility] CARDIOLOGY [place], [place] [address] (Wo rk) documented as of [...] Component Value Ref Test Analysis Performed At [facility] gist Range Method Time Signature VB Text Department: Vascular Surgery Lab VASCUBASE Report Patient: [id number] (GREGORY HOANG) CPT: 16123 ICD10: T81.89XA;I75.021 Referring Physician: ARIK BLOOM ?? [...] Signature Glucose Lvl 98 65 - 199 [facility] mg/dL [facility] Comment: Diabetes: >=200 mg/dL plus symp toms BUN 20 10 - 20 mg/dL [facility] Creatinine 1.17 0.80 - 1.50 mg/dL [facility] Sodium 140 135 - [...] - 15 mmol/L [facility] Calcium 9.1 8.5 - 10.5 mg/dL [facility] Estimated GFR >60 >=60 [facility] Comment: The reported eGFR should be multiplied b y 1.2 for patients. The MDRD is not an appropriate measure o f renal function for patients with body mass extremes or in patients with acute kidney failure. http://Lever.GrayBug/DHnkdep http://ePetWorld/DHMCnkf Specimen Anatomical Collection Method Collection Time Receive d Time (Source) Location / / Volume Laterality Blood specimen 08/26/2017 2:00 PM 018 2:15 (specimen) EST PM EST Resulting Agency Comment Spec In Lab Danette Maxwell STACIE CHEMISTRY ORDERABLES Performing Organization Address City/State/ZIP Code Phon e Number [address] (ABNORMAL) pro-Brain Natriuretic Peptide (08/26/2017 2:00 PM EST) P athologist Signature ProBNP 2,373 (H) <=125 [facility] RYAN pg/mL [facility] Specimen Anatomical Collection Method Collection Time Receive d Time (Source) Location / / Volume Laterality Blood specimen 08/26/2017 2:00 PM 018 2:15 (specimen) EST PM EST Resulting Agency Comment Spec In Lab Danette Maxwell STACIE CHEMISTRY ORDERABLES Performing Organization Address City/[facility]/[place] [address] documented in this encounter Visit Diagnoses Diagnosis Atheroembolism of foot, right Delayed surgical wound healing, initial encounter Acute on chronic systolic congestive hea rt failure Acute on chronic systolic heart failure Ischemic cardiomyopathy Other specified forms of chronic ischemi c heart disease documented in this encounter Care Teams Assistant Paralegal Relationship Specialty Start Date End Date Lovely Vicente MD PCP - General 04/16/[address] [place] [address] documented as of this encounter
--- OUTSIDE RECORDS SUMMARY | 2022-02-13 11:12 | XMS_ITS | Encounter Summary ---
:1945 Author Organization [facility] [place] [address] Care Team Providers Name Role Phone Lovely Vicente MD Primary Care Provider Reason for Referral Diagnostic Test (Routine) - Closed Specialty Diagnoses / Procedures Referred By Contact Refer red To Contact Cardiology Diagnoses Ischemic cardiomyopathy Acute on chronic systolic congestive heart failure Danette Maxwell APRN [facility] Non-Inv Card Lab Procedures Echocardiogram Transthoracic(Leb) [facility] [place] [address] [place] [address] Referral ID Status Reason Start Date Expiration Date Visits V isits Requested Authorized [id number] Closed Specialty 08/30/2017 08/30/2018 1 1 Service Requested Encounter Details Date Type Department Care Team Description 08/26/2017 Office Visit Cardiology at [facility] Danette Maxwell Ischemic cardiomyopathy; [facility] STACIE Gomes Acute on chronic systolic congestive hea rt failure ; Drive [facility] ASCVD (arteriosclerotic card iovascular disease); [place], [place] PAF (paroxysmal atrial fibrillation); [phone] CARDIOLOGY PAD (peripheral artery disease) [phone] [place], [place] [address] Social History Tobacco Use Types Packs/Day Years [...] painful and swollen right foot right d/t 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 [...] Failure Clinic follow up scheduled for: September Daentte Maxwell APRN 08/26/2017 documented in this encounter Plan of Treatment Upcoming Encounters Date Type Specialty Care Team Description 02/19/2022 Laboratory Appointment Lab 02/19/2022 Office Visit Cardiology Liz Poole PA [facility] er Dr Cardiology Dept [place], [place] [address] (Wo rk) 03/26/2022 Office Visit Cardiology Vitaliy Nobles MD [facility] CARDIOLOGY [place], [place] [address] (Wo rk) documented as of this encounter Results ECHOCARDIOGRAM COMPLETE W CONTRAST (10/07/2017 10:23 AM EDT) athologist Signature EF 45 [facility] Specimen (Source) Anatomical Location Collection Method / Collectio n Time Received Time / Laterality Volume 10/07/2017 Narrative [facility] - 10/07/2017 11:13 AM ED T Procedure: ?Transthoracic Echocardiogram Patient: ?NATALYA Mccollum ? (Age): 1945(72y) Med Rec#: ? [id number] ?Sex: ?M ? Site Loc: ? [facility] ?Ht / Wt: ??173(cm)/82(kg) Pt. Loc: ?Echo Lab ?BSA: ?1.96 Study Date: ?? 10/07/2017 ?Pt. Type: Outpatient Tape: ? Referring: Danette Maxwell Reading: Iker Cuevas ([id number]) Metallurgical Tester: Yonathan Bocanegra Diagnosis: *ICD-10-PCS Ischemic cardiomyopathy (I2 [...] E-wave Vmax ?1.2 ?m/sec ? MV deceleration [id number] ?msec ? MV A-wave Vmax ?1 ?m/sec [...] ? Mid-Inferior ?Hypokinetic ? Mid-Inferoseptal ?Hypokinetic ? [place]-Septal ? Akinetic ? [place]-Anterior ? Hypokinetic ? [place]-Lateral ?Hypokinetic ? [place]-Inferior ? Hypokinetic ? [place]-Tip ?Akinetic ? This report has been electronically sign ed by: _ Iker Cueavs M.D. ? 10/07/2017 11:12:34 Images reviewed and interpretation verif ied [facility] Procedure Note Iker Cuevas MD - 10/07/2017Formatti ng of this note might be different from the original. Procedure: Transthoracic Echocardiogram Patient: NATALYA MCBRIDE(Age): [birth year]72y) Med Rec#: [id number] Sex: M Site Loc: [facility] Ht / Wt: 173(cm)/82(kg) Pt. Loc: Echo Lab BSA: 1.96 Study Date: 10/07/2017 Pt. Type: Outpati ent Tape: Referring: Danette Maxwell Reading: Iker Cuevas ([id number]) Metallurgical Tester: Yonathan Bocanegra Diagnosis: *ICD-10-PCS Ischemic cardiomyopathy (I2 5.5) *ICD-10-PCS Acute on chronic systolic ( congestive) heart failure (I50.23) Rhythm: Sinus BP: 150/60 SUMMARY: 1. The left ventricle is probably normal in size. The quantitative left ventricular ejection fraction by biplane Oneill's method is 45%. There are left ventricular segmental wall shara on abnormalities present, as shown in the [...] MV E-wave Vmax 1.2 m/sec MV deceleration [id number] msec MV A-wave Vmax 1 m/sec MV [...] Akinetic Mid-Posterolateral Hypokinetic Mid-Inferior Hypokinetic Mid-Inferoseptal Hypokinetic [place]-Septal Akinetic [place]-Anterior Hypokinetic [place]-Lateral Hypokinetic [place]-Inferior Hypokinetic [place]-Tip Akinetic This report has been electronically sign ed by: _ Iker Cuevas M.D. 10/07/2017 11:12 :34 Images reviewed and interpretation elvie hwang [facility] Danette Maxwell APRN ECHO ORDERABLES Performing Organization Address City/State/ZIP Code Phon e Number [facility] Basic Metabolic Panel (non-fasting) (08/26/2017 2:00 PM EST) P athologist Signature Glucose Lvl 98 65 - 199 [facility] mg/dL [facility] Comment: Diabetes: >=200 mg/dL plus symp toms BUN 20 10 - 20 mg/dL [facility] Creatinine 1.17 0.80 - 1.50 mg/dL [facility] Sodium 140 135 - 145 mmol/L [facility] Potassium 4.8 3.5 - 5.0 mmol/L [facility] Comment: Please note: ??Patients with WBC >100,00 0 may have falsely elevated Potassium levels. ??For accurate Potassium quantif ication in these patients send serum separator tube (gold top) for subsequent determinations. ??Contact the Clinical Chemistry Laboratory if there are any qu estions. Chloride 98 98 - 107 mmol/L [facility] CO2 28 22 - 31 mmol/L [facility] Anion Gap 14 5 - 15 mmol/L [facility] Calcium 9.1 8.5 - 10.5 mg/dL [facility] Estimated GFR >60 >=60 [facility] Comment: The reported eGFR should be multiplied b y 1.2 for patients. The MDRD is not an appropriate measure o f renal function for patients with body mass extremes or in patients with acute kidney failure. http://[employer]/DHnkdep http://[employer]/DHMCnkf Specimen Anatomical Collection Method Collection Time Receive d Time (Source) Location / / Volume Laterality Blood specimen 08/26/2017 2:00 PM 018 2:15 (specimen) EST PM EST Resulting Agency Comment Spec In Lab Danette Eliseo Hans QUINONES CHEMISTRY ORDERABLES Performing Organization Address City/State/[place] [address] (ABNORMAL) pro-Brain Natriuretic Peptide (08/26/2017 2:00 PM EST) P athologist Signature ProBNP 2,373 (H) <=125 [facility] pg[facility]mL [facility] Specimen Anatomical Collection Method Collection Time Receive d Time (Source) Location / / Volume Laterality Blood specimen 08/26/2017 2:00 PM 018 2:15 (specimen) EST PM EST Resulting Agency Comment Spec In Lab Danette Gomes Hans QUINONES CHEMISTRY ORDERABLES Performing Organization Address City/State/[place] [address] documented in this encounter [...] failure documented in this encounter Care Teams Alternative Medicine Practitioner Relationship Specialty Start Date End Date Lovely Vicente MD PCP - General 04/16/[address] [place] [address] documented as of this encounter
--- OUTSIDE RECORDS SUMMARY | 2022-02-13 11:12 | XMS_ITS | Encounter Summary ---
:1945 Author Organization [facility] [place] [address] Care Team Providers Name Role Phone Lovely Vicente MD Primary Care Provider Encounter Details Date Type Department Care Team Description 08/19/2017 Office Visit Vascular Surgery at [place], PAD (peripheral artery [facility] [employer] [facility] disease) [facility] [address] [place], [place] VASCULAR SURGERY [address] [place] [address] [phone] Social History Tobacco Use Types Packs/Day Years [...] Poole PA [facility] Cardiology [place], [place] [address] (Wo rk) 03/26/2022 Office Visit Cardiology Vitaliy Nobles MD [facility] CARDIOLOGY [place], [place] [address] (Wo rk) documented as of this encounter Visit Diagnoses Diagnosis PAD (peripheral artery disease) Peripheral vascular disease, unspecified documented in this encounter Care Teams Knot Tying Operator Relationship Specialty Start Date End Date Lovely Vicente MD PCP - General 04/16/[address] [place] [address] documented as of this encounter
--- OUTSIDE RECORDS SUMMARY | 2022-02-13 11:12 | XMS_ITS | Encounter Summary ---
:1945 Author Organization [facility] [place] [address] Care Team Providers Name Role Phone Lovely Vicente MD Primary Care Provider Reason for Visit Reason Onset Date Comments VNA Calls 08/30/2017 Encounter Details Date Type Department Care Team Description 08/30/2017 Telephone Vascular Surgery at [facility] Cora Reid RN VNA Calls [facility] [place] [address] Social History Tobacco Use Types Packs/Day [...] 08/30/2017 11:16 AM EST Caller: Alfonso at [facility] [phone] Reason for call: Changing his wound vac [...] Alfonso who had been in contact with [facility]'s Wound Care Nurse who advised him to [...] 02/19/2022 Office Visit Cardiology Liz Poole PA [facility] Cardiology [place], [place] [address] (Wo rk) 03/26/2022 Office Visit Cardiology Vitaliy Nobles MD [facility] ER CARDIOLOGY [place], [place] [address] (Wo rk) documented as of this encounter Visit Diagnoses Not on filedocumented in this encounter Care Teams Repairer Finished Metal Relationship Specialty Start Date End Date Lovely Vicente MD PCP - General 04/16/[address] [place] [address] documented as of this encounter
--- OUTSIDE RECORDS SUMMARY | 2022-02-13 11:12 | XMS_ITS | Encounter Summary ---
:1945 Author Organization [facility] [place] [address] Care Team Providers Name Role Phone Lovely Vicente MD Primary Care Provider Encounter Details Date Type Department Care Team Description 09/06/2017 Orders Only Vascular Surgery at [facility] Ninfa Clark, [facility] [place] [address] Social History Tobacco Use Types Packs/Day [...] Liz Poole PA [facility] er Cardiology Dept [place], [place] [address] (Wo rk) 03/26/2022 Office Visit Cardiology Vitaliy Nobles MD [facility] ER CARDIOLOGY [place], [place] [address] (Wo rk) documented as of this encounter Visit Diagnoses Not on filedocumented in this encounter Care Teams Rehabilitation Attendant Relationship Specialty Start Date End Date Lovely Vicente MD PCP - General 04/16/[address] [place] [address] documented as of this encounter
--- OUTSIDE RECORDS SUMMARY | 2022-02-13 11:12 | XMS_ITS | Encounter Summary ---
:1945 Author Organization [facility] [place] [address] Care Team Providers Name Role Phone Lovely Vicente MD Primary Care Provider Encounter Details Date Type Department Care Team Description 08/30/2017 [facility] ischemia [facility] DR [place], [place] VASCULAR SURGERY [address] [place] [address] [phone] Social History Tobacco Use Types Packs/Day Years [...] Smith MD - 08/30/2017 2:00 PM EST [facility] staff: Patient returns. He is doing well [...] 02/19/2022 Office Visit Cardiology Liz Poole PA [facility] Medical [facility] er Cardiology Dept [place], [place] [address] (Wo rk) 03/26/2022 Office Visit Cardiology Vitaliy Nobles MD [facility] ER CARDIOLOGY [place], [place] [address] (Wo rk) documented as of this encounter Visit Diagnoses Diagnosis Critical lower limb ischemia Unspecified circulatory system disorder documented in this encounter Care Teams Associate Professor Of Psychology Relationship Specialty Start Date End Date Lovely Vicente MD PCP - General 04/16/[address] [place] [address] documented as of this encounter
--- OUTSIDE RECORDS SUMMARY | 2022-02-13 11:12 | XMS_ITS | Encounter Summary ---
:1945 Author Organization [facility] [place] [address] Care Team Providers Name Role Phone Lovely Vicente MD Primary Care Provider Reason for Visit Reason Comments Follow-up Encounter Details Date Type Department Care Team Description 08/19/2017 Office Visit Cardiac Surgery at [place], Jock S/P C ABG (coronary [facility] N, artery bypass graft) [facility] [place] CARDIOTH[place]ACIC [address] SURGERY [phone] [place], [place] [address] Social History Tobacco Use Types [...] office. Best personal regards, Yuan Retana MD [phone] documented in this encounter Plan of Treatment Upcoming Encounters Date Type Specialty Care Team Description 02/19/2022 Laboratory Appointment Lab 02/19/2022 Office Visit Cardiology Liz Poole PA [facility] Cardiology Dept [place], [place] [address] (Wo rk) 03/26/2022 Office Visit Cardiology Vitaliy Nobles MD [facility] CARDIOLOGY [place], [place] [address] (Wo rk) documented [...] 454 ms MUSE SYSTEM (Bezet) Calculated P [place] 20 degrees MUSE SYSTEM Calculated R [place] -29 degrees MUSE SYSTEM Calculated T [place] 121 degrees MUSE SYSTEM INTERPRETATION Normal sinus rhythm MUSE SYSTEM Inferior infarct (cited on or before 25-JAN-2013) Anterior 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) T wave abnormality, consider lateral ischemia Abnormal ECG When compared with ECG of 06-AUG-2017 12:37, No signif icant change was found Confirmed by MD Luci, Taurus Braun ([id number]) on 08/19/2017 1 0:37:38 PM Specimen Anatomical [...] status documented in this encounter Care Teams Loan Assistant Relationship Specialty Start Date End Date Lovely Vicente MD PCP - General 04/16/[address] [place] [address] documented as of this encounter
--- OUTSIDE RECORDS SUMMARY | 2022-02-13 11:12 | XMS_ITS | Encounter Summary ---
:1945 Author Organization [place] [address] Care Team Providers Name Role Phone Lovely Vicente MD Primary Care Provider Encounter Details Date Type Department Care Team Description 09/03/2017 Telephone [facility] [facility] Ninfa Clark, [place] [address] Social History Tobacco Use Types Packs/Day [...] help with the discomfort of the change. Content Editor told the VNA that I would ask [...] [facility] er Cardiology Dept [place], [place] [address] (Wo rk) 03/26/2022 Office Visit Cardiology Vitaliy Nobles MD [facility] CARDIOLOGY [place], [place] [address] (Wo rk) documented as of this encounter Visit Diagnoses Not on filedocumented in this encounter Care Teams Fur Dry Cleaner Relationship Specialty Start Date End Date Lovely Vicente MD PCP - General 04/16/15 [facility] [address] [place] [address] documented as of this encounter
--- OUTSIDE RECORDS SUMMARY | 2022-02-13 11:12 | XMS_ITS | Encounter Summary ---
:1945 Author Organization [facility] [place] [address] Care Team Providers Name Role Phone Lovely Vicente MD Primary Care Provider Encounter Details Date Type Department Care Team Description 08/19/2017 Hospital Encounter XRay at [facility] Martha Teague, S/P CABG x [address] [facility] [address] [place] [address] RD [phone] GENERAL INTERNAL MEDICINE [place], [place] [address] (Wo rk) Social History [...] PA [facility] Cardiology Dept [place], [place] [address] (Wo rk) 03/26/2022 Office Visit Cardiology Vitaliy Nobles MD [facility] CARDIOLOGY [place], [place] [address] (Wo rk) documented as of [...] at 08/19/2017 10:30 AM Martha S Ho MACHINE CLOTH TRIMMER IMG DX ORDERABLES documented in this encounter Visit Diagnoses Diagnosis S/P CABG x 3 Postsurgical aortocoronary bypass status documented in this encounter Care Teams Director Of Academic Support Relationship Specialty Start Date End Date Lovely Vicente MD PCP - General 04/16/[address] [place] [address] documented as of this encounter
--- OUTSIDE RECORDS SUMMARY | 2022-02-13 11:12 | XMS_ITS | Encounter Summary ---
:1945 [place] [address] Care Team Providers Name Role Phone Lovely Vicente MD Primary Care Provider Encounter Details Date Type Department Care Team Description 08/26/2017 Hospital Encounter Vascular Lab at [facility], Athero embolism of foot, right; [place], [place] Delayed surgi nusrat wound healing, [place] [phone] Social History Tobacco Use Types Packs/Day Years [...] [facility] Cardiology Dept [place], [place] [address] (Wo rk) 03/26/2022 Office Visit Cardiology Vitaliy Nobles MD [facility] CARDIOLOGY [place], [place] [address] (Wo rk) documented as of [...] Component Value Ref Test Analysis Performed At [facility] Range Method Time Signature VB Text Department: Vascular Surgery Lab VASCUBASE Report Patient: [id number] (DON HOANG) CPT: 88952 ICD10: T81.89XA;I75.021 Referring Physician: ELVER BLOOM ?? [...] encounter documented in this encounter Care Teams Metallurgical Engineer Relationship Specialty Start Date End Date Lovely Vicente MD PCP - General 04/16/[address] [place] [address] documented as of this encounter
--- OUTSIDE RECORDS SUMMARY | 2022-02-13 11:12 | XMS_ITS | Encounter Summary ---
:1945 Author Organization [facility] [place] [address] Care Team Providers Name Role Phone Lovely Vicente MD Primary Care Provider Encounter Details Date Type Department Care Team Description 09/07/2017 Office Visit Endocrinology at [facility] Maria Ines Stallings of [facility] [place] [address] [place] [address] ENDOCRINOLOGY DEPT [place], [place] [address] Social History Tobacco Use Types [...] Liz Poole PA [facility] Cardiology Dept [place], [place] [address] (Wo rk) 03/26/2022 Office Visit Cardiology Vitaliy Nobles MD [facility] ER CARDIOLOGY [place], [place] [address] (Wo rk) documented as of this encounter Visit Diagnoses Diagnosis Hx of papillary thyroid carcinoma Personal history of malignant neoplasm o f thyroid documented in this encounter Care Teams Ui Ux Web Developer Relationship Specialty Start Date End Date Lovely Vicente MD PCP - General 04/16/[address] [place] [address] documented as of this encounter
--- OUTSIDE RECORDS SUMMARY | 2022-02-13 11:12 | XMS_ITS | Encounter Summary ---
:1945 Author Organization [facility] [place] [address] Care Team Providers Name Role Phone Lovely Vicente MD Primary Care Provider Encounter Details Date Type Department Care Team Description 08/25/2017 Telephone Pain Management at [facility] [place]eno, [place] [phone] Social History Tobacco Use Types Packs/Day Years Used Date Former Smoker Cigarettes 3 5 Quit: 07/26/18 69 Smokeless Tobacco: Never Used Alcohol Use Standard Drinks/Week Comments No 0 (1 standard drink = 0.6 oz pure alcoho l) Sex Assigned at Date Recorded Not on file documented as of this encounter Miscellaneous Notes Telephone Encounter - Angeles Rodrigez, RN - 08/25/2017 11:56 AM EST [facility] Preauthorization Request Patient: Don Fatima [id number] Fax received from [employer] denying prior authorization for Lidocaine Patches prescribed by Barbra Soares APRN. RX insurance plan: [employer] insurance telephone: [phone] Patient Diagnosis: right foot pain secondary to PVD and ischemia ? Previous medications attempted: Tylenol, Tramadol, Dilaudid Authorization/Reference number: [id number] _x_ denied, provider and patient informed _x_ appeal initiated by provider, patient informed Angeles Rodrigez, RN documented in this encounter Plan of Treatment Upcoming Encounters Date Type Specialty Care Team Description 02/19/2022 Laboratory Appointment Lab 02/19/2022 Office Visit Cardiology Liz Poole PA [facility] er Cardiology Dept [place], [place] [address] (Wo rk) 03/26/2022 Office Visit Cardiology Vitaliy Nobles MD [facility] ER CARDIOLOGY [place], [place] [address] (Wo rk) documented as of this encounter Visit Diagnoses Not on filedocumented in this encounter Care Teams Senior Game Designer Relationship Specialty Start Date End Date Lovely Vicente MD PCP - General 04/16/15 [facility] [address] [place] [address] documented as of this encounter
--- OUTSIDE RECORDS SUMMARY | 2022-02-13 11:12 | XMS_ITS | Encounter Summary ---
:1945 Author Organization [place] [address] Care Team Providers Name Role Phone Lovely Vicente MD Primary Care Provider Encounter Details Date Type Department Care Team Description 09/07/2017 Laboratory Appointment Lab 3L [facility] Hx of [facility] [place] [address] Social History Tobacco Use Types Packs/Day Years [...] Visit Cardiology Liz Poole PA [facility] er Cardiology Dept [place], [place] [address] (Wo rk) 03/26/2022 Office Visit Cardiology Vitaliy Nobles MD [facility] ER CARDIOLOGY [place], [place] [address] (Wo rk) documented as of [...] EST) P athologist Signature Thyroglobulin 1.4 <=54.9 [facility] ng/mL [facility] Comment: Thyroglobulin levels may be unreliable [...] Thyroglob Ab <20.0 0.0 - 40.0 IU/mL [facility] Comment: Assay performed is the [...] [facility] [place]/ZIP Code Phon e Number [address] TSH (09/07/2017 2:41 PM EST) P athologist Signature TSH 3.93 0.27 - 4.20 [facility] mlU/ML [facility] Specimen Anatomical Collection Method Collection Time Receive d Time (Source) Location / / Volume Laterality Blood specimen 09/07/2017 2:41 PM 018 2:46 (specimen) EST PM EST Resulting Agency Comment Spec In Lab Luz Prescott MD CHEMISTRY ORDERABLES Performing Organization Address City/[facility] [place] [address] documented in this encounter Visit Diagnoses Diagnosis Hx of papillary thyroid carcinoma Personal history of malignant neoplasm o f thyroid documented in this encounter Care Teams Dental Scheduling Coordinator Relationship Specialty Start Date End Date Lovely Vicente MD PCP - General 04/16/[address] [place] [address] documented as of this encounter
--- OUTSIDE RECORDS SUMMARY | 2022-02-13 11:13 | XMS_ITS | Encounter Summary ---
:1945 [place] [address] Care Team Providers Name Role Phone Lovely Vicente MD Primary Care Provider Reason for Visit Auth/Cert Specialty Diagnoses / Procedures Referred By Contact Refer red To Contact Diagnoses Critical lower limb ischemia CELLULITIS RT FOOT Procedures EMERGENCY Referral ID Status Reason Start Date Expiration Date Visits Requ ested Visits Authorized [id number] 1 1 Encounter Details Date Type Department Care Team Description 08/06/2017 - Hospital Encounter 5 Yonathan Oneill lower limb ischemia; 08/16/2017 Su Flores MD Ischemic foot Hospital [facility] [address] [phone] Social History Tobacco Use Types Packs/Day Years [...] 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 Patient [...] Dorsalis Pedis (Ankle) Artery ?132 ? 0.94 ??Roberts-Biphasic ? Posterior Tibial (Ankle) Artery ??154 ? 1.10 ??Roberts-Biphasic ? Fourth Toe ? 67 ?0.48 ?? [...] the foot. Discharge Conditions/Prognosis: Good Discharge to: [facility] Rehab Discharge Medications: Your Medications New Medications [...] For any problems or questions please call [phone] ZELDA Smith, leather heel breaster Nurse Clinician For issues on weeknights after 5pm and weekends please call [phone] and ask for the Vascular Fellow adoption counselor. General Instructions None Future Appointments and Orders Future Appointments Provider Department Dept Phone 08/26/2017 4:00 PM Aurelia Rivera PA V[facility] Surgery [facility] [place] [phone] 09/07/2017 3:00 PM LAB, THREE L Lab 3L [facility] [phone] 09/07/2017 4:00 PM Luz Prescott MD Endocrinology at [place] [phone] 09/09/2017 8:00 AM Barbra Soares APRN Pain Management [facility] [place] [phone] Please bring a list of your current [...] For any problems or questions please call [phone] ZELDA Smith, leather heel breaster Nurse Clinician For issues on weeknights after 5pm and weekends please call [phone] and ask for the Vascular Fellow adoption counselor. documented in this encounter Medications at Time [...] of Care Management Discharge Note Patient Destination: [facility] ([facility]) [address] [place] [address] Transportation: with (at bedside) Time of Discharge: by 12 noon Level of Care: swing Patient Aware: yes Family Notified: yes Md to call report to: Yissel Quintero FRINGE WEAVER already called RN to call report to: [phone] Shirin Wolf Office of Care Management Pager [phone] Shirin Wolf RN - 08/16/2017 10:50 AM EST [facility] has offered pt swing bed. Pt and accept bed. will transport via car. FRINGE WEAVER Yissel Quintero aware; d/c paperwork will be completed by 12 noon. [facility] requests pt arrival by 1400 today; FRINGE WEAVER, RN, and family aware. FRINGE WEAVER called [facility] and was told that they prefer pt to arrive with wound vac dressing applied but clamped. FRINGE WEAVER applied new wound vac dressing. RN has [facility] number to call report. PASSR completed; FRINGE WEAVER paged to request provider signature in highlighted space. Indigo [facility] notified via email that home wound vac now cancelled; [facility] has picked up from room and order cancelled. Packet started and provided to blood donor unit assistant. Medicare important message explained to patient, patient signed. Copy provided to patient and signature page to OCM for inclusion in pt EMR. Radha Georges - 08/16/2017 10:34 AM EST Office of Care Management/Director Economic Patient Name: Gregory Hoang : 1945 Patient has been offered a swing bed at [facility]. The patient will be transported by private transportation. No MD to MD report necessary Please call Nursing Report to [phone], ask for systems consultant. Info to accompany patient: Narcotic Prescriptions Copies of Medication Administration Records and IV sheets for past 10 days. Plan: Director Economic will be available to the patient and Store Sales Manager-RN and/or Animal Nurse for further assistance. Patient will be discharged to: [place] [phone] Radha Powers, Director Economic Mira Black, VAMSI - 08/15/2017 10:05 PM EST [address] Flores to ask if he wanted to hold metoprolol dose. BP 95/58. OK to hold this dose Courtney Brito - 08/15/2017 3:26 PM EST Office of Care Management(OCM)/Director Economic(RS)/ D/C Planning re : Patient is medically ready for d/c today. RS has been in contact with [facility] to see if they could offer a bed. [facility] is still reviewing the case and need their MD to review chart prior to accepting or declining. OCM team needs to check in with [facility] tomorrow to check on status. 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 Vac in place. Rehab referrals ongoing. Can ambulate in hallway. Change VAC at bedside today. Naty Colindres RN - 08/14/2017 1:33 PM EST Patient Name: rGegory Hoang Patient Age: 72 y.o. Birthdate: 1945 Admit date: 08/06/2017 Attending Physician: Yonathan Smith MD We want him to go to a place for intensive therapy and not at a prison where he will be just sitting there and not getting any therapy. . Contacted by direct care RN, who said that patient and would like information about patient's referral to: [facility] PHONE: [phone] FAX: [phone] CM spoke with RS who said that [...] would be accepted to acute rehab at [facility] as Dr. Smith had recommended . [...] rehab. Await recommendations from PT. Covering pager #[phone]. 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 Cofounder Kaitlin Saha, RN Pager #[phone] Payam Rosales - 08/13/2017 2:37 PM EST [employer] Encounter Note Patient Name: Gregory Hoang : [id number] MR#: [id number] Admit Date: 08/06/2017 1:41 PM Hospital Day 7 days Narrative: Visited to introduce and assess acceptance of [employer] services. Pt was awake, alert, oriented and in chair and family was there. Assessment:Patient coping positively with stresses of illness/hospitalization at this time. Pt says that he is hoping to get better and his family was there. Pt says that he has family care and supportand taking one day at time. Intervention and Outcome: Provided emotional support and encouraging presence. 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 Now s/p R D1-3 TMA & foot debridement. # NEURO: tylenol lzu, prn dilaudid for pain; ativan prn # [...] RN - 08/12/2017 1:06 PM EST The patient/farm loan representative has been provided a list of Home Health Agencies/DME vendors which serve their preferred geographic area. A letter describing our affiliations was reviewed with them and theywere educated about their right to choose where referrals are placed. Patient requests referral to [facility]. PHONE: [phone] FAX: [phone]. And Home NPWT (Negative Pressure Wound Therapy) aka wound vac device made available to pt. Serial # confirmed. [facility]ed [facility] Proof of Delivery/Assignment of Benefits Statement(POD/AOB) Form w patient or authorized agent signing on behalf of patient. Copy of POD/AOB provided to pt and other copy faxed to [employer] @ fax# [phone] Expected date of discharge: 08/12/2017. 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 Address: [address] [place] [address] [place] [address] (home) Mobile: Telephone Information: Referring Provider: No [...] SETUP performed by Manny Mcknight MD at [facility] MAIN OR ??? PRO CABG, ARTERIAL, SINGLE N/A 07/07/2017 @CABG, USING ARTERIAL GRAFT;SINGLE ARTERIAL GRAFT (WRVU 33.75) performed by Yuan Retana MD at [facility] MAIN OR ??? PRO CABG, ARTERY-VEIN, TWO N/A 07/07/2017 @CABG, TWO VENOUS GRAFTS & ARTERIAL GRAFT (WRVU 7.93) performed by Yuan Retana MD at [facility] MAIN OR ??? PRO COLONOSCOPY, REMV LESN, SNARE 01/16/2014 COLONOSCOPY, POLYPECTOMY, REMOVAL LESION BY SNARE performed by Nohemi Jaimes MD at [facility] ENDOSCOPY ??? PRO ENDOSCOPY W/VIDEO-ASST VEIN HARVEST, CABG Right 07/07/2017 ENDOSCOPIC HARVEST VEIN(S) FOR CABG (WRVU 0.31) performed by Yuan Retana MD at [facility] MAIN OR ??? PRO THYROIDECTOMY 03/28/2013 THYROIDECTOMY, TOTAL OR COMPLETE performed by Manny Mcknight MD at [facility] MAIN OR Date/Procedure Med's given/comments 08/10/17 RLE angio with multiple LEAD BUSINESS SYSTEMS ANALYST to R posterior tibial artery Fentanyl 200 [...] (with meals). 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 Heparin gtt continues to run. Pt a/ox4. [...] of : 1945 AGE 72 y.o. Address: [address] [place] [address] [place] [address] (home) Mobile: Telephone Information: Referring Provider: No [...] SETUP performed by Manny Mcknight MD at [facility] MAIN OR ??? PRO CABG, ARTERIAL, SINGLE N/A 07/07/2017 @CABG, USING ARTERIAL GRAFT;SINGLE ARTERIAL GRAFT (WRVU 33.75) performed by Yuan Retana MD at [facility] MAIN OR ??? PRO CABG, ARTERY-VEIN, TWO N/A 07/07/2017 @CABG, TWO VENOUS GRAFTS & ARTERIAL GRAFT (WRVU 7.93) performed by Yuan Retana MD at [facility] MAIN OR ??? PRO COLONOSCOPY, REMV LESN, SNARE 01/16/2014 COLONOSCOPY, POLYPECTOMY, REMOVAL LESION BY SNARE performed by Nohemi Jaimes MD at [facility] ENDOSCOPY ??? PRO ENDOSCOPY W/VIDEO-ASST VEIN HARVEST, CABG Right 07/07/2017 ENDOSCOPIC HARVEST VEIN(S) FOR CABG (WRVU 0.31) performed by Yuan Retana MD at [facility] MAIN OR ??? PRO THYROIDECTOMY 03/28/2013 THYROIDECTOMY, TOTAL OR COMPLETE performed by Manny Mcknight MD at [facility] MAIN OR Date/Procedure Meds given/comments No [...] hours as needed for Pain. 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 Unsuccessful draw attempt, another welding equipment repairer supervisor will come [facility] to collect blood for PTT test. 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 Vascular resident adoption counselor and will forward result to the team prior to rounds. 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 Patient [...] SETUP performed by Manny Mcknight MD at [facility] MAIN OR ??? PRO CABG, ARTERIAL, SINGLE N/A 07/07/2017 @CABG, USING ARTERIAL GRAFT;SINGLE ARTERIAL GRAFT (WRVU 33.75) performed by Yuan Retana MD at [facility] MAIN OR ??? PRO CABG, ARTERY-VEIN, TWO N/A 07/07/2017 @CABG, TWO VENOUS GRAFTS & ARTERIAL GRAFT (WRVU 7.93) performed by Yuan Retana MD at [facility] MAIN OR ??? PRO COLONOSCOPY, REMV LESN, SNARE 01/16/2014 COLONOSCOPY, POLYPECTOMY, REMOVAL LESION BY SNARE performed by Nohemi Jaimes MD at [facility] ENDOSCOPY ??? PRO ENDOSCOPY W/VIDEO-ASST VEIN HARVEST, CABG Right 07/07/2017 ENDOSCOPIC HARVEST VEIN(S) FOR CABG (WRVU 0.31) performed by Yuan Retana MD at [facility] MAIN OR ??? PRO THYROIDECTOMY 03/28/2013 THYROIDECTOMY, TOTAL OR COMPLETE performed by Manny Mcknight MD at [facility] MAIN OR Functional Status/Social Hx: Quit [...] left blue toes with CTA showing R CARGO SURVEYOR pseudoaneurysm (now thrombosed) and occluded ATs bilaterally. [...] 2.5x80 5. Completion RLE angiogram 6. L CARGO SURVEYOR angiogram 7. 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 - L CARGO SURVEYOR angriogram demonstrated: High femoral bifurcation over the proximal half of the femoral head. L CARGO SURVEYOR access in the distal L CARGO SURVEYOR. - Closure device: Mynx Technical Procedure: The [...] for a 45cm 5F Destination. V18 and Hancock and QuickCross catheters were used to select [...] 5F. A stationed picture of the L CARGO SURVEYOR was performed as the patient was noted to have a very high bifurcation. Access appeared in the distal R CARGO SURVEYOR. Closure and sheath removal was performed with [...] PM EST 1440 report called to 5 [place] nurse Tessa AGUSTIN documented in this encounter [...] with pt and pt's spouse. Discharge to [facility]. Goal: Individualization & Mutuality Outcome: Outcome (s) [...] sit/sit to supine -- Bed Mobility Goal, Ingham Level independent -- Bed Mobility Goal, Date [...] days -- Transfer Training Goal, Activity Type oia-va-lxlzz/sncuv-sd-dgu -- Transfer Train Goal, Ingham Level conditional independence -- Transfer Train Goal, [...] call cabello within reach, Hourly rounding by RN/PETROLEUM ANALYST. Bed alarm / Chair alarm. Patient-specific fall [...] Smith MD - 08/15/2017 6:28 PM EST [facility] Operative Note Patient Name: Gregory Hoang : [id number] MR#: [id number] Case Date: 08/09/2017 Surgeon: Surgeon(s) and Role: [...] 2.5x80 5. Completion RLE angiogram 6. L CARGO SURVEYOR angiogram 7. Mynx closure Precautions/Restrictions: fall, sternal [...] feet/ bed -> bathroom). Anticipated Discharge Disposition: long-term facility, other (see comments) (or swing bed) Pager: [phone] BASSAM ELISA, PT 08/14/2017 Inpatient Physical Therapy Problem: Acute [...] to Achieve by discharge Gait Training Goal, Ingham Level conditional independence;set up required Gait Training [...] these facilities over the weekend except for [facility]. CM spoke with [facility] CM Drea Sandhu, VAMSI who said that they do not anticipate any beds over the weekend. Reviewed with patient/ that they need to be aware that patient will need to take the first bed offered at the facilities that they make referrals to. Their choices are: 1- [facility] PHONE: [phone] FAX: [phone] 2- [facility] ([facility]) [address] [place] [address] 3- [facility]) [address] [place] [address] I have discussed Medicare/Private Insurance [...] RS/CM on Wednesday to follow-up. Covering pager #[phone] for today. Plan of Care - Henrique [...] with additional findings of pseudoaneurysm on R CARGO SURVEYOR and bilateral anterior tibial artery occlusions. Was [...] an outpatient once discharged. Have patient call [phone] to set up an appointment. Follow-up: Dermatology will sign-off for now. Please do not hesitate to contact us if you have any questions orconcerns. Impression and Recommendations discussed with primary team on 08/13/2017. Karo Henderson MD Resident in Dermatology Section of Dermatology, Department of Surgery [facility] Pager [phone] Patient seen and evaluated with staff Clarifier: Halima Cordero MD Section of Dermatology [facility] Level of Resident Supervision: Direct Supervision (The [...] 2.5x80 5. Completion RLE angiogram 6. L CARGO SURVEYOR angiogram 7. Mynx closure Active Non-Hospital Problems [...] home with home health ([facility] PT[facility]OT) Pager: [phone] YASIR TELLO OT 08/12/2017 Occupational Therapy Rehabilitation [...] 2.5x80 5. Completion RLE angiogram 6. L CARGO SURVEYOR angiogram 7. Mynx closure Past Medical History: [...] with 24/7 assistance and maximal services) Pager: [phone] NICHOLAS MORA, PT 08/12/2017 Physical Therapy Rehabilitation [...] sit/sit to supine -- Bed Mobility Goal, Ingham Level independent -- Bed Mobility Goal, Outcome Achieved -- goal ongoing Goal: Gait Training Goal Stand Alone Therapy Goal Outcome: Ongoing (Interventions Implemented as Appropriate) 08/11/17 1310 08/12/17 1510 Gait Training Goal Gait Training Goal, Date Established 08/11/17 -- Gait Training Goal, Time to Achieve 5 - 7 days -- Gait Training Goal, Ingham Level conditional independence -- Gait Training Goal, [...] days -- Transfer Training Goal, Activity Type xjh-ak-jkzzq/ftccp-eh-gcj -- Transfer Train Goal, Ingham Level conditional independence -- Transfer Training Goal, [...] Smith MD - 08/11/2017 2:52 PM EST [facility] Operative Note Patient Name: Gregory Hoang : [id number] MR#: [id number] Case Date: 08/11/2017 Surgeon: Surgeon(s) and Role: [...] 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 Completion RLE angiogram 6. L CARGO SURVEYOR angiogram 7. Mynx closure He is very [...] Anticipated Discharge Disposition: inpatient rehabilitation facility Pager: [phone] LAWRENCE GONZALEZ, PT 08/11/2017 Physical Therapy Rehabilitation [...] to sit/sit to supine Bed Mobility Goal, Ingham Level independent Goal: Gait Training Goal Stand Alone Therapy Goal Outcome: Ongoing (Interventions Implemented as Appropriate) 08/11/17 1310 Gait Training Goal Gait Training Goal, Date Established 08/11/17 Gait Training Goal, Time to Achieve 5 - 7 days Gait Training Goal, Ingham Level conditional independence Gait Training Goal, Assist [...] 7 days Transfer Training Goal, Activity Type mur-xb-gyzvw/bltra-yf-ewh Transfer Train Goal, Ing[place] Level conditional independence Plan of [facility] Annetta Sandoval RN - 08/11/2017 7:21 AM [...] Surveillance: Bed locked in low position, call caebllo within reach, purposeful hourly rounding, clutter free [...] call cabello within reach, Hourly rounding by RN/PETROLEUM ANALYST. Bed alarm / Chair alarm. ? Patient-specific [...] 04/05/2013 Hospitalizations Within the Past 30 Days: [facility] 07/20/2017 Anticipated Length Of Stay (If known): Expected Length of Hospitalization: 5-7 days2-3 days Current Decision-Making Capacity: Alert and oriented x 4 Advance Care Planning: on file Kisha Hoang [facility] [phone] Current Coping/Education/Information Needs: pt and spouse state [...] Health/Prescription Coverage: Primary Insurance: MEDICARE Secondary Insurance: [employer] [facility] Prescription Coverage: See above Preferred Pharmacy: [facility] Other: N/A Primary Care Provider: Lovely Vicente MD [phone] Patient/Caregiver Goals of Treatment: Patient plans to return home when medically ready Potential Needs for Transition of Care: Rehab/SNF: N/A Home Health: [facility]. DME: pt has a cane and walker [...] of care planning. Kaitlin Saha RN Pager: [phone] Plan of Care - Melba Jaramillo RN [...] Overview Goal: Plan of Care Review 08/08/17 4284 Coping/Psychosocial Plan Of Care Reviewed With patient [...] call cabello within reach, Hourly rounding by RN/PETROLEUM ANALYST. Bed alarm / Chair alarm. Patient-specific fall [...] at bedside and MD TEAM Carrying pager [phone] contacted (via Radio page) and notified of [...] Visit Cardiology Liz Poole PA [facility] er Cardiology Dept [place], [place] [address] (Wo rk) 03/26/2022 Office Visit Cardiology Vitaliy Nobles MD [facility] MEDICAL [facility] ER CARDIOLOGY [place], [place] [address] (Wo rk) documented as of [...] section. TYPE AND SCREEN Routine 08/09/2017 1:10 ([facility]/CGP/SHANDA) AM EST BASIC METABOLIC PANEL Routine 08/09/2017 [...] Signature POC Glucose 160 65 - 199 [facility] mg/dL [facility] Comment: Supplemental ranges: <140 mg/dL before meals <180 mg/dL all other times of the day Specimen Anatomical Collection Method Collection Time Receive d Time (Source) Location / / Volume Laterality Blood specimen 08/16/2017 7:28 AM 018 7:28 (specimen) EST AM EST Yonathan Smith MD POINT OF CARE TEST ORDERABLE S Performing Organization Address City/State/[place] [address] (ABNORMAL) Differential, Automated (08/16/2017 5:08 AM EST) Patholo gist Method Time Signature Neutrophils % 73.9 % [facility] Neutr Abs (ANC) 5.37 1.70 - [facility] 6.10 [facility] x10(3)/[facility] LABORATORY Lymphocytes % 10.1 % [facility] Lymphocytes Abs 0.7 (L) 0.9 - 3.2 [facility] x10(3)/[facility] LABORATORY Monocytes % 10.1 % [facility] Monocyte Abs 0.7 0.3 - 0.9 [facility] x10(3)/[facility] LABORATORY Eosinophils % 5.1 % [facility] Eosinophils Abs 0.4 0.0 - 0.4 [facility] x10(3)/[facility] LABORATORY Basophils % 0.4 % [facility] Basophils Abs 0.0 0.0 - 0.1 [facility] x10(3)/[facility] LABORATORY Immature Gran % 0.40 % [place] [...] Melisa Gran Abs 0.03 0.00 - 0.04 x10(3)/[facility] MAR Y [facility] LABORATORY Specimen Anatomical Collection Method Collection Time Receive d Time (Source) Location / / Volume Laterality Blood specimen 08/16/2017 5:08 AM 018 5:20 (specimen) EST AM EST Resulting Agency Comment Spec In Lab Yonathan Smith MD HEMATOLOGY ORDERABLES Performing Organization Address City/State/[place] [address] (ABNORMAL) Hemogram (08/16/2017 5:08 AM EST) Analysis Performed At Patho logist Time Signature WBC 7.3 4.0 - 9.5 [facility] x10(3)/[facility] LABORATORY RBC 3.36 (L) 4.58 - [facility] 5.54 [facility] x10(6)/[facility] LABORATORY Hemoglobin 9.7 (L) 13.7 - [place] [place] 16.5 gm/dL [facility] Hematocrit 30.3 (L) 40.5 - [place] 48.5 % [facility] MCV 90.2 82.9 - [facility] 93.1 [facility] LABORATORY MCH 28.9 27.5 - [place] [place] 32.1 pg [facility] MCHC 32.0 32.0 - [place] 35.7 gm/dL [facility] Platelets 282 145 - 357 [facility] x10(3)/[facility] LABORATORY RDWSD 53.9 (H) 36.0 - [facility]0 [facility] LABORATORY RDWCV 16.5 (H) 11.4 - [facility] 13.8 % [facility] LABORATORY MPV 9.0 7.6 - 12.9 [facility] LABORATORY nRBC % Auto 0.0 % [facility] LABORATORY nRBC Abs Auto 0.000 0.000 - [facility] 0.000 [facility] x10(3)/[facility] LABORATORY Specimen Anatomical Collection Method Collection Time Receive d Time (Source) Location / / Volume Laterality Blood specimen 08/16/2017 5:08 AM 018 5:20 (specimen) EST AM EST Resulting Agency Comment Spec In Lab Yonathan Smith MD HEMATOLOGY ORDERABLES Performing Organization Address City/State/[place] [address] (ABNORMAL) Basic Metabolic Panel (non-fasting) (08/16/2017 5:08 AM EST) athologist Signature Glucose Lvl 141 65 - 199 [facility] mg/dL [facility] LABORATORY Comment: Diabetes: >=200 mg/dL plus symp toms BUN 29 (H) 10 - 20 mg/dL [facility] LABORATORY Creatinine 1.25 0.80 - 1.50 mg/dL [facility] LABORATORY Sodium 140 135 - 145 mmol/L [facility] LABORATORY Potassium 4.5 3.5 - 5.0 mmol/L [facility] LABORATORY [...] Anion Gap 13 5 - 15 mmol/L [facility] LABORATORY Calcium 8.7 8.5 - 10.5 mg/dL [facility] LABORATORY Estimated GFR 57 (L) >=60 [facility] LABORATORY Comment: The reported eGFR should be multiplied b y 1.2 for patients. The MDRD is not an appropriate measure o f renal function for patients with body mass extremes or in patients with acute kidney failure. http://[facility]/DHnkdep http://[facility]/DHMCnkf Specimen Anatomical Collection Method Collection Time Receive d Time (Source) Location / / Volume Laterality Blood specimen 08/16/2017 5:08 AM 018 5:20 (specimen) EST AM EST Resulting Agency Comment Spec In Lab Yonathan Smith MD CHEMISTRY ORDERABLES Performing Organization Address City/State/ZIP Code Phon e Number [place] [id number]OSP[address] LAB[address]ORY [address] (ABNORMAL) Prothrombin Time (08/16/2017 5:08 AM EST) athologist Signature PT 25.2 (H) 11.8 - 14.0 [facility] LABORATORY INR 2.3 (H) 0.9 - 1.1 [...] Smith MD HEMATOLOGY ORDERABLES Performing Organization Address City/[facility]/ZIP Code Phon e Number [address] POCT Glucose (08/16/2017 4:09 AM EST) athologist Signature POC Glucose 147 65 - 199 [place] [facility] mg/dL [facility] LABORATORY Comment: Supplemental ranges: <140 mg/dL before meals <180 mg/dL all other times of the day Specimen Anatomical Collection Method Collection Time Receive d Time (Source) Location / / Volume Laterality Blood specimen 08/16/2017 4:09 AM 018 4:09 (specimen) EST AM EST Yonathan Smith MD POINT OF CARE TEST ORDERABLE S Performing Organization Address City/[facility]/[place] [address] POCT Glucose (08/15/2017 11:56 PM EST) athologist Signature POC Glucose 176 65 - 199 [place] mg/dL [facility] LABORATORY Comment: Supplemental ranges: <140 mg/dL before meals <180 mg/dL all other times of the day Specimen Anatomical Collection Method Collection Time Receive d Time (Source) Location / / Volume Laterality Blood specimen 08/15/2017 11:56 8 (specimen) PM EST 11:56 PM EST Yonathan Smith MD POINT OF CARE TEST ORDERABLE S Performing Organization Address City/[facility]/ZIP Code Phon e Number [address] POCT Glucose (08/15/2017 8:05 PM EST) athologist Signature POC Glucose 136 65 - 199 [place] [facility] mg/dL [facility] LABORATORY Comment: Supplemental ranges: <140 mg/dL before meals <180 mg/dL all other times of the day Specimen Anatomical Collection Method Collection Time Receive d Time (Source) Location / / Volume Laterality Blood specimen 08/15/2017 8:05 PM 018 8:05 (specimen) EST PM EST Yonathan Smith MD POINT OF CARE TEST ORDERABLE S Performing Organization Address City/State/ZIP Code Phon e Number [address] (ABNORMAL) POCT Glucose (08/15/2017 4:50 PM EST) athologist Signature POC Glucose 232 (H) 65 - 199 [place] [facility] mg/dL [facility] LABORATORY Comment: Supplemental ranges: <140 mg/dL before meals <180 mg/dL all other times of the day Specimen Anatomical Collection Method Collection Time Receive d Time (Source) Location / / Volume Laterality Blood specimen 08/15/2017 4:50 PM 018 4:50 (specimen) EST PM EST Yonathan Smith MD POINT OF CARE TEST ORDERABLE S Performing Organization Address City/[facility]/ZIP Code Phon e Number [address] POCT Glucose (08/15/2017 12:04 PM EST) athologist Signature POC Glucose 135 65 - 199 [facility] mg/dL [facility] LABORATORY Comment: Supplemental ranges: <140 mg/dL before meals <180 mg/dL all other times of the day Specimen Anatomical Collection Method Collection Time Receive d Time (Source) Location / / Volume Laterality Blood specimen 08/15/2017 12:04 8 (specimen) PM EST 12:04 PM EST Yonathan Smith MD POINT OF CARE TEST ORDERABLE S Performing Organization Address City/[facility]/[place] [address] POCT Glucose (08/15/2017 7:36 AM EST) athologist Signature POC Glucose 124 65 - 199 [facility] mg/dL [facility] LABORATORY Comment: Supplemental ranges: <140 mg/dL before meals <180 mg/dL all other times of the day Specimen Anatomical Collection Method Collection Time Receive d Time (Source) Location / / Volume Laterality Blood specimen 08/15/2017 7:36 AM 018 7:36 (specimen) EST AM EST Yonathan Smith MD POINT OF CARE TEST ORDERABLE S Performing Organization Address City/[facility]/[place] [address] (ABNORMAL) Differential, Automated (08/15/2017 6:22 AM EST) [facility] Method Time Signature Neutrophils % 76.1 % [facility] LABORATORY Neutr Abs (ANC) 6.62 (H) 1.70 - [facility] 6.10 [facility] x10(3)/[facility] L LABORATORY Lymphocytes % 9.3 % [facility] LABORATORY Lymphocytes Abs 0.8 (L) 0.9 - 3.2 [facility] x10(3)/[facility] LABORATORY Monocytes % 9.4 % [facility] LABORATORY Monocyte Abs 0.8 0.3 - 0.9 [facility] x10(3)/[facility] LABORATORY Eosinophils % 4.0 % [facility] LABORATORY Eosinophils Abs 0.4 0.0 - 0.4 [facility] x10(3)/[facility] LABORATORY Basophils % 0.6 % [facility] LABORATORY Basophils Abs 0.0 0.0 - 0.1 [facility] x10(3)/[facility] LABORATORY Immature Gran % 0.60 % [...] Gran Abs 0.05 (H) 0.00 - 0.04 x10(3)/[facility] LABORATORY Specimen Anatomical Collection Method Collection Time Receive d Time (Source) Location / / Volume Laterality Blood specimen 08/15/2017 6:22 AM 018 6:33 (specimen) EST AM EST Resulting Agency Comment Spec In Lab Yonathan Smith MD HEMATOLOGY ORDERABLES Performing Organization Address City/[facility]/[place] [address] (ABNORMAL) Hemogram (08/15/2017 6:22 AM EST) Analysis Performed At Patho logist Time Signature WBC 8.7 4.0 - 9.5 [facility] x10(3)/[facility] LABORATORY RBC 3.21 (L) 4.58 - [facility] 5.54 [facility] x10(6)/[facility] LABORATORY Hemoglobin 9.1 (L) 13.7 - [facility]m/dL [facility] LABORATORY Hematocrit 29.0 (L) 40.5 - [facility] 48.5 % [facility] LABORATORY MCV 90.3 82.9 - [facility] 93.1 [facility] LABORATORY MCH 28.3 27.5 - [facility] 32.1 pg [facility] LABORATORY MCHC 31.4 (L) 32.0 - [facility] 35[facility] gm/dL [facility] LABORATORY Platelets 254 145 - 357 [facility] x10(3)/[facility] LABORATORY RDWSD 53.9 (H) 36.0 - [place] [facility] 45.0 [facility] LABORATORY RDWCV 16.3 (H) 11.4 - [facility] 13.8 % [facility] LABORATORY MPV 8.8 7.6 - 12.9 [facility] LABORATORY nRBC % Auto 0.0 % [facility] LABORATORY nRBC Abs Auto 0.000 0.000 - [facility] 0.000 [facility] x10(3)/[facility] LABORATORY Specimen Anatomical Collection Method Collection Time Receive d Time (Source) Location / / Volume Laterality Blood specimen 08/15/2017 6:22 AM 018 6:33 (specimen) EST AM EST Resulting Agency Comment Spec In Lab Yonathan Smith MD HEMATOLOGY ORDERABLES Performing Organization Address City/State/[place] [address] (ABNORMAL) Basic Metabolic Panel (non-fasting) (08/15/2017 6:22 AM EST) P athologist Signature Glucose Lvl 118 65 - 199 [facility] mg/dL [facility] LABORATORY Comment: Diabetes: >=200 mg/dL plus symp toms BUN 27 (H) 10 - 20 mg/dL [facility] LABORATORY Creatinine 1.12 0.80 - 1.50 mg/dL [facility] LABORATORY Sodium 138 135 - 145 [...] LABORATORY Calcium 8.8 8.5 - 10.5 mg/dL [facility] LABORATORY Estimated GFR >60 >=60 [facility] LABORATORY Comment: The reported eGFR should be multiplied b y 1.2 for patients. The MDRD is not an appropriate measure o f renal function for patients with body mass extremes or in patients with acute kidney failure. http://[facility]/DHnkdep http://[facility]/DHMCnkf Specimen Anatomical Collection Method Collection Time Receive d Time (Source) Location / / Volume Laterality Blood specimen 08/15/2017 6:22 AM 018 6:33 (specimen) EST AM EST Resulting Agency Comment Spec In Lab Yonathan Smith MD CHEMISTRY ORDERABLES Performing Organization Address City/State/[place] [address] (ABNORMAL) Prothrombin Time (08/15/2017 6:22 AM EST) athologist Signature PT 21.9 (H) 11.8 - 14.0 [facility] LABORATORY INR 1.9 (H) 0.9 - 1.1 [...] Smith MD HEMATOLOGY ORDERABLES Performing Organization Address City/[facility]/ZIP Code Phon e Number [address] POCT Glucose (08/15/2017 4:33 AM EST) athologist Signature POC Glucose 164 65 - 199 [facility] mg[facility]dL [facility] LABORATORY Comment: Supplemental ranges: <140 mg/dL before meals <180 mg/dL all other times of the day Specimen Anatomical Collection Method Collection Time Receive d Time (Source) Location / / Volume Laterality Blood specimen 08/15/2017 4:33 AM 018 4:33 (specimen) EST AM EST Yonathan Smith MD POINT OF CARE TEST ORDERABLE S Performing Organization Address City/[facility]/[place] [address] POCT Glucose (08/15/2017 12:12 AM EST) athologist Signature POC Glucose 89 65 - [address] [facility] LABORATORY Comment: Supplemental ranges: <140 mg/dL before meals <180 mg/dL all other times of the day Specimen Anatomical Collection Method Collection Time Receive d Time (Source) Location / / Volume Laterality Blood specimen 08/15/2017 12:12 8 (specimen) AM EST 12:12 AM EST Yonathan Smith MD POINT OF CARE TEST ORDERABLE S Performing Organization Address City/[facility]/[place] [address] (ABNORMAL) POCT Glucose (08/14/2017 8:07 PM EST) athologist Signature POC Glucose 204 (H) 65 - 199 [facility] mg/dL [facility] LABORATORY Comment: Supplemental ranges: <140 mg/dL before meals <180 mg/dL all other times of the day Specimen Anatomical Collection Method Collection Time Receive d Time (Source) Location / / Volume Laterality Blood specimen 08/14/2017 8:07 PM 018 8:07 (specimen) EST PM EST Yonathan Smith MD POINT OF CARE TEST ORDERABLE S Performing Organization Address City/State/ZIP Code Phon e Number [address] POCT Glucose (08/14/2017 5:11 PM EST) athologist Signature POC Glucose 174 65 - [address] [facility]dL [facility] LABORATORY Comment: Supplemental ranges: <140 mg/dL before meals <180 mg/dL all other times of the day Specimen Anatomical Collection Method Collection Time Receive d Time (Source) Location / / Volume Laterality Blood specimen 08/14/2017 5:11 PM 018 5:11 (specimen) EST PM EST Yonathan Smith MD POINT OF CARE TEST ORDERABLE S Performing Organization Address City/State/ZIP Code Phon e Number [address] POCT Glucose (08/14/2017 12:10 PM EST) athologist Signature POC Glucose 141 65 - 199 [facility] mg/dL [facility] LABORATORY Comment: Supplemental ranges: <140 mg/dL before meals <180 mg/dL all other times of the day Specimen Anatomical Collection Method Collection Time Receive d Time (Source) Location / / Volume Laterality Blood specimen 08/14/2017 12:10 8 (specimen) PM EST 12:10 PM EST Yonathan mSith MD POINT OF CARE TEST ORDERABLE S Performing Organization Address City/State/[place] [address] POCT Glucose (08/14/2017 8:07 AM EST) P athologist Signature POC Glucose 158 65 - 199 [facility] mg/dL [facility] LABORATORY Comment: Supplemental ranges: <140 mg/dL before meals <180 mg/dL all other times of the day Specimen Anatomical Collection Method Collection Time Receive d Time (Source) Location / / Volume Laterality Blood specimen 08/14/2017 8:07 AM 018 8:07 (specimen) EST AM EST Yonathan Smith MD POINT OF CARE TEST ORDERABLE S Performing Organization Address City/State/[place] [address] (ABNORMAL) Differential, Automated (08/14/2017 4:52 AM EST) Patholo gist Method Time Signature Neutrophils % 78.6 % [facility] LABORATORY Neutr Abs (ANC) 7.70 (H) 1.70 - [facility] 6.10 [facility] x10(3)/[facility] LABORATORY Lymphocytes % 7.8 % [facility] LABORATORY Lymphocytes Abs 0.8 (L) 0.9 - 3.2 [facility] x10(3)/[facility] LABORATORY Monocytes % 8.8 % [facility] LABORATORY Monocyte Abs 0.9 0.3 - 0.9 [facility] x10(3)/[facility] LABORATORY Eosinophils % 4.0 % [facility] LABORATORY Eosinophils Abs 0.4 0.0 - 0.4 [facility] x10(3)/[facility] LABORATORY Basophils % 0.5 % [facility] LABORATORY Basophils Abs 0.0 0.0 - 0.1 [facility] x10(3)/[facility] LABORATORY Immature Gran % 0.30 % [...] Melisa Gran Abs 0.03 0.00 - 0.04 x10(3)/[facility] LABORATORY Specimen Anatomical Collection Method Collection Time Receive d Time (Source) Location / / Volume Laterality Blood specimen 08/14/2017 4:52 AM 018 5:08 (specimen) EST AM EST Resulting Agency Comment Spec In Lab Yonathan Smith MD HEMATOLOGY ORDERABLES Performing Organization Address City/State/[place] [address] (ABNORMAL) Hemogram (08/14/2017 4:52 AM EST) Analysis Performed At Patho logist Time Signature WBC 9.8 (H) 4.0 - 9.5 [facility] x10(3)/[facility] LABORATORY RBC 3.32 (L) 4.58 - [facility] 5.54 [facility] x10(6)/[facility] LABORATORY Hemoglobin 9.5 (L) 13.7 - [facility] 16.5 gm/dL [facility] LABORATORY Hematocrit 30.3 (L) 40.5 - [facility] 48.5 % [facility] LABORATORY MCV 91.3 82.9 [facility] 93.1 [facility] LABORATORY MCH 28.6 27.5 - [facility] 32.1 pg [facility] LABORATORY MCHC 31.4 (L) 32.0 - [facility] 35.7 gm/dL [facility] LABORATORY Platelets 263 145 - 357 [facility] x10(3)/[facility] LABORATORY RDWSD 54.8 (H) 36.0 - [facility] 45.0 [facility] LABORATORY RDWCV 16.5 (H) 11.4 - [facility] 13.8 % [facility] LABORATORY MPV 9.1 7.6 - 12.9 [facility] LABORATORY nRBC % Auto 0.0 % [facility] LABORATORY nRBC Abs Auto 0.000 0.000 - [facility] 0.000 [facility] x10(3)/[facility] LABORATORY Specimen Anatomical Collection Method Collection Time Receive d Time (Source) Location / / Volume Laterality Blood specimen 08/14/2017 4:52 AM 018 5:08 (specimen) EST AM EST Resulting Agency Comment Spec In Lab Yonathan Smith MD HEMATOLOGY ORDERABLES Performing Organization Address City/[facility]/[place] [address] (ABNORMAL) Prothrombin Time (08/14/2017 4:52 AM EST) athologist Signature PT 18.8 (H) 11.8 - 14.0 [facility] LABORATORY INR 1.6 (H) [...] Smith MD HEMATOLOGY ORDERABLES Performing Organization Address City/[facility]/[place] [address] (ABNORMAL) Basic Metabolic Panel (non-fasting) (08/14/2017 4:52 AM EST) athologist Signature Glucose Lvl 135 65 - 199 [facility] mg/dL [facility] LABORATORY Comment: Diabetes: >=200 mg/dL plus symp toms BUN 25 (H) 10 - 20 mg/dL [facility] LABORATORY Creatinine 1.36 0.80 - 1.50 mg/dL [facility] LABORATORY Sodium 141 135 - 145 mmol/L [facility] LABORATORY [...] Anion Gap 13 5 - 15 mmol/L [facility] LABORATORY Calcium 8.5 8.5 - 10.5 mg/dL [facility] LABORATORY Estimated GFR 52 (L) >=60 [facility] LABORATORY Comment: The reported eGFR should be multiplied b y 1.2 for patients. The MDRD is not an appropriate measure o f renal function for patients with body mass extremes or in patients with acute kidney failure. http://[facility]/DHnkdep http://[facility]/DHMCnkf Specimen Anatomical Collection Method Collection Time Receive d Time (Source) Location / / Volume Laterality Blood specimen 08/14/2017 4:52 AM 018 5:08 (specimen) EST AM EST Resulting Agency Comment Spec In Lab Yonathan Smith MD CHEMISTRY ORDERABLES Performing Organization Address City/[facility]/ZIP Code Phon e Number [address] POCT Glucose (08/14/2017 3:56 AM EST) athologist Signature POC Glucose 135 65 - 199 [facility] mg/dL [facility] LABORATORY Comment: Supplemental ranges: <140 mg/dL before meals <180 mg/dL all other times of the day Specimen Anatomical Collection Method Collection Time Receive d Time (Source) Location / / Volume Laterality Blood specimen 08/14/2017 3:56 AM 018 3:56 (specimen) EST AM EST Yonathan Smith MD POINT OF CARE TEST ORDERABLE S Performing Organization Address City/[facility]/ZIP Code Phon e Number [address] POCT Glucose (08/13/2017 11:13 PM EST) athologist Signature POC Glucose 118 65 - 199 [facility] mg/dL [facility] LABORATORY Comment: Supplemental ranges: <140 mg/dL before meals <180 mg/dL all other times of the day Specimen Anatomical Collection Method Collection Time Receive d Time (Source) Location / / Volume Laterality Blood specimen 08/13/2017 11:13 8 (specimen) PM EST 11:13 PM EST Yonathan Smith MD POINT OF CARE TEST ORDERABLE S Performing Organization Address City/State/[place] [address] (ABNORMAL) POCT Glucose (08/13/2017 8:08 PM EST) athologist Signature POC Glucose 204 (H) 65 - 199 [facility] mg/dL [facility] LABORATORY Comment: Supplemental ranges: <140 mg/dL before meals <180 mg/dL all other times of the day Specimen Anatomical Collection Method Collection Time Receive d Time (Source) Location / / Volume Laterality Blood specimen 08/13/2017 8:08 PM 018 8:08 (specimen) EST PM EST Yonathan Smith MD POINT OF CARE TEST ORDERABLE S Performing Organization Address City/State/[place] [address] POCT Glucose (08/13/2017 4:02 PM EST) athologist Signature POC Glucose 145 65 - 199 [facility] mg/dL [facility] LABORATORY Comment: Supplemental ranges: <140 mg/dL before meals <180 mg/dL all other times of the day Specimen Anatomical Collection Method Collection Time Receive d Time (Source) Location / / Volume Laterality Blood specimen 08/13/2017 4:02 PM 018 4:02 (specimen) EST PM EST Yonathan Smith MD POINT OF CARE TEST ORDERABLE S Performing Organization Address City/State/[place] [address] POCT Glucose (08/13/2017 11:31 AM EST) athologist Signature POC Glucose 179 65 - 199 [facility] mg/dL [facility] LABORATORY Comment: Supplemental ranges: <140 mg/dL before meals <180 mg/dL all other times of the day Specimen Anatomical Collection Method Collection Time Receive d Time (Source) Location / / Volume Laterality Blood specimen 08/13/2017 11:31 8 (specimen) AM EST 11:31 AM EST Yonathan Smith MD POINT OF CARE TEST ORDERABLE S Performing Organization Address City/[facility]/ZIP [place] [address] (ABNORMAL) POCT Glucose (08/13/2017 10:16 AM EST) P athologist Signature POC Glucose 211 (H) 65 - 199 [facility] mg/dL [facility] LABORATORY Comment: Supplemental ranges: <140 mg/dL before meals <180 mg/dL all other times of the day Specimen Anatomical Collection Method Collection Time Receive d Time (Source) Location / / Volume Laterality Blood specimen 08/13/2017 10:16 8 (specimen) AM EST 10:16 AM EST Yonathan Smith MD POINT OF CARE TEST ORDERABLE S Performing Organization Address City/State/[place] [address] JULIAN, legs, multiple levels (08/13/2017 7:42 AM EST) Component Value Ref Test Analysis Performed At Patholo gist Range Method Time Signature VB Text Department: Vascular Surgery Lab VASCUBASE Report Patient: [id number] (GREGORY HOANG) CPT: 24484 ICD10: I99.8 Referring Physician: YONATHAN SMITH ?? Indications: s/p R 1,2,3 toe amps with red left foot, need n ew baseline Diabetes mellitus: yes ICD10 Diagnosis Code: I99.8 Findings: Right ?Pressure (mm Hg) ?? JULIAN ??Waveform ?TBI ?? Brachial Artery ?138 ? Dorsalis Pedis (Ankle) Arter y ?132 ? 0.94 ??Roberts- Biphasic ? Posterior Tibial (Ankle) Art anila ??154 ? 1.10 ??Roberts-Biphasic ? Fourth Toe ? 67 ? 0.48 [...] Signature POC Glucose 156 65 - 199 [facility] mg/dL [facility] LABORATORY Comment: Supplemental ranges: <140 mg/dL before meals <180 mg/dL all other times of the day Specimen Anatomical Collection Method Collection Time Receive d Time (Source) Location / / Volume Laterality Blood specimen 08/13/2017 7:33 AM 018 7:33 (specimen) EST AM EST Yonathan Smith MD POINT OF CARE TEST ORDERABLE S Performing Organization Address City/[facility]/[place] [address] HOSPITAL [address] (ABNORMAL) Differential, Automated (08/13/2017 5:33 AM EST) Patholo gist Method Time Signature Neutrophils % 77.8 % [facility] LABORATORY Neutr Abs (ANC) 7.83 (H) 1.70 - [facility] 6.10 [facility] x10(3)/[facility] L LABORATORY Lymphocytes % 8.4 % [facility] LABORATORY Lymphocytes Abs 0.8 (L) 0.9 - 3.2 [facility] x10(3)/[facility] LABORATORY Monocytes % 8.3 % [facility] LABORATORY Monocyte Abs 0.8 0.3 - 0.9 [facility] x10(3)/[facility] LABORATORY Eosinophils % 4.6 % [facility] LABORATORY Eosinophils Abs 0.5 (H) 0.0 - 0.4 [facility] x10(3)/[facility] LABORATORY Basophils % 0.5 % [facility] LABORATORY Basophils Abs 0.0 0.0 - 0.1 [facility] x10(3)/[facility] LABORATORY Immature Gran % 0.40 % [...] Melisa Gran Abs 0.04 0.00 - 0.04 x10(3)/[facility] Y [facility] LABORATORY Specimen Anatomical Collection Method Collection Time Receive d Time (Source) Location / / Volume Laterality Blood specimen 08/13/2017 5:33 AM 018 6:04 (specimen) EST AM EST Resulting Agency Comment Spec In Lab Yonathan Smith MD HEMATOLOGY ORDERABLES Performing Organization Address City/State/[place] [address] (ABNORMAL) Hemogram (08/13/2017 5:33 AM EST) Analysis Performed At Patho logist Time Signature WBC 10.1 (H) 4.0 - 9.5 [facility] x10(3)/[facility] LABORATORY RBC 3.21 (L) 4.58 - [facility] 5.54 [facility] x10(6)/[facility] LABORATORY Hemoglobin 9.2 (L) 13.7 - [place] 16.5 gm/dL [facility] LABORATORY Hematocrit 29.6 (L) 40.5 - [place] 48.5 % [facility] LABORATORY MCV 92.2 82.9 - [place] [facility] 93.1 [facility] LABORATORY MCH 28.7 27.5 - [place] 32.1 pg [facility] LABORATORY MCHC 31.1 (L) 32.0 - [place] 35.7 gm/dL [facility] LABORATORY Platelets 263 145 - 357 [facility] x10(3)/[facility] LABORATORY RDWSD 54.8 (H) 36.0 - [place] 45.0 [facility] LABORATORY RDWCV 16.4 (H) 11.4 - [facility] SU 13.8 % [facility] LABORATORY MPV 9.2 7.6 - 12.9 [facility] nRBC % Auto 0.0 % [facility] LABORATORY nRBC Abs Auto 0.000 0.000 - [place] [facility] 0.000 [facility] x10(3)/[facility] LABORATORY Specimen Anatomical Collection Method Collection Time Receive d Time (Source) Location / / Volume Laterality Blood specimen 08/13/2017 5:33 AM 018 6:04 (specimen) EST AM EST Resulting Agency Comment Spec In Lab Yonathan Smith MD HEMATOLOGY ORDERABLES Performing Organization Address City/State/[place] [address] (ABNORMAL) Prothrombin Time (08/13/2017 5:33 AM EST) athologist Signature PT 17.3 (H) 11.8 - 14.0 [facility] LABORATORY INR 1.4 (H) 0.9 - 1.1 [...] Organization Address City/State/[place] [address] (ABNORMAL) Basic Metabolic Panel (non-fasting) (08/13/2017 5:33 AM EST) athologist Signature Glucose Lvl 126 65 - 199 [facility] mg/dL [facility] LABORATORY Comment: Diabetes: >=200 mg/dL plus symp toms BUN 18 10 - 20 mg/dL [facility] LABORATORY Creatinine 1.16 0.80 - 1.50 mg/dL [facility] LABORATORY Sodium 141 135 - 145 mmol/L [facility] LABORATORY [...] Anion Gap 12 5 - 15 mmol/L [facility] LABORATORY Calcium 7.9 (L) 8.5 - 10.5 mg/dL [facility] LABORATORY Estimated GFR >60 >=60 [facility] LABORATORY Comment: The reported eGFR should be multiplied b y 1.2 for patients. The MDRD is not an appropriate measure o f renal function for patients with body mass extremes or in patients with acute kidney failure. http://[facility]/DHnkdep http://[facility]/DHMCnkf Specimen Anatomical Collection Method Collection Time Receive d Time (Source) Location / / Volume Laterality Blood specimen 08/13/2017 5:33 AM 018 6:04 (specimen) EST AM EST Resulting Agency Comment Spec In Lab Yonathan Smith MD CHEMISTRY ORDERABLES Performing Organization Address City/[facility] Phon e Number [address] POCT Glucose (08/13/2017 4:29 AM EST) athologist Signature POC Glucose 111 65 - 199 [place] [facility] mg/dL [facility] LABORATORY Comment: Supplemental ranges: <140 mg/dL before meals <180 mg/dL all other times of the day Specimen Anatomical Collection Method Collection Time Receive d Time (Source) Location / / Volume Laterality Blood specimen 08/13/2017 4:29 AM 018 4:29 (specimen) EST AM EST Yonathan Smith MD POINT OF CARE TEST ORDERABLE S Performing Organization Address [facility] Phon e Number [address] POCT Glucose (08/12/2017 11:28 PM EST) athologist Signature POC Glucose 164 65 - 199 [place] [facility] mg/dL [facility] LABORATORY Comment: Supplemental ranges: <140 mg/dL before meals <180 mg/dL all other times of the day Specimen Anatomical Collection Method Collection Time Receive d Time (Source) Location / / Volume Laterality Blood specimen 08/12/2017 11:28 8 (specimen) PM EST 11:28 PM EST Yonathan Smith MD POINT OF CARE TEST ORDERABLE S Performing Organization Address City/[facility]/ZIP [facility] Phon e Number [address] (ABNORMAL) POCT Glucose (08/12/2017 7:40 PM EST) athologist Signature POC Glucose 209 (H) 65 - 199 [facility] SU mg/dL [facility] LABORATORY Comment: Supplemental ranges: <140 mg/dL before meals <180 mg/dL all other times of the day Specimen Anatomical Collection Method Collection Time Receive d Time (Source) Location / / Volume Laterality Blood specimen 08/12/2017 7:40 PM 018 7:40 (specimen) EST PM EST Yonathan Smith MD POINT OF CARE TEST ORDERABLE S Performing Organization Address City/State/ZIP Code Phon e Number [address] POCT Glucose (08/12/2017 4:24 PM EST) athologist Signature POC Glucose 161 65 - 199 [place] [facility] mg/dL [facility] LABORATORY Comment: Supplemental ranges: <140 mg/dL before meals <180 mg/dL all other times of the day Specimen Anatomical Collection Method Collection Time Receive d Time (Source) Location / / Volume Laterality Blood specimen 08/12/2017 4:24 PM 018 4:24 (specimen) EST PM EST Yonathan Smith MD POINT OF CARE TEST ORDERABLE S Performing Organization Address City/State/ZIP Code Phon e Number [address] POCT Glucose (08/12/2017 12:00 PM EST) athologist Signature POC Glucose 167 65 - 199 [place] [facility] mg/dL [facility] LABORATORY Comment: Supplemental ranges: <140 mg/dL before meals <180 mg/dL all other times of the day Specimen Anatomical Collection Method Collection Time Receive d Time (Source) Location / / Volume Laterality Blood specimen 08/12/2017 12:00 8 (specimen) PM EST 12:00 PM EST Yonathan Smith MD POINT OF CARE TEST ORDERABLE S Performing Organization Address City/State/[place] [address] POCT Glucose (08/12/2017 7:25 AM EST) athologist Signature POC Glucose 152 65 - 199 [place] [facility] mg/dL [facility] LABORATORY Comment: Supplemental ranges: <140 mg/dL before meals <180 mg/dL all other times of the day Specimen Anatomical Collection Method Collection Time Receive d Time (Source) Location / / Volume Laterality Blood specimen 08/12/2017 7:25 AM 018 7:25 (specimen) EST AM EST Yonathan Smith MD POINT OF CARE TEST ORDERABLE S Performing Organization Address City/State/[place] [address] [facility] LAB[address]ATORY Drive (ABNORMAL) Differential, Automated (08/12/2017 6:29 AM EST) [facility] Method Time Signature Neutrophils % 78.7 % [facility] LABORATORY Neutr Abs (ANC) 7.94 (H) 1.70 - [facility] 6.10 [facility] x10(3)/[facility] LABORATORY Lymphocytes % 8.8 % [facility] LABORATORY Lymphocytes Abs 0.9 0.9 - 3.2 [facility] x10(3)/[facility] LABORATORY Monocytes % 7.8 % [facility] LABORATORY Monocyte Abs 0.8 0.3 - 0.9 [facility] x10(3)/[facility] LABORATORY Eosinophils % 3.9 % [facility] LABORATORY Eosinophils Abs 0.4 0.0 - 0.4 [facility] x10(3)/[facility] LABORATORY Basophils % 0.3 % [facility] LABORATORY Basophils Abs 0.0 0.0 - 0.1 [facility] x10(3)/[facility] LABORATORY Immature Gran % 0.50 % [...] Gran Abs 0.05 (H) 0.00 - 0.04 x10(3)/[facility] LABORATORY Specimen Anatomical Collection Method Collection Time Receive d Time (Source) Location / / Volume Laterality Blood specimen 08/12/2017 6:29 AM 018 6:38 (specimen) EST AM EST Resulting Agency Comment Spec In Lab Yonathan Smith MD HEMATOLOGY ORDERABLES Performing Organization Address City/State/[place] [address] (ABNORMAL) Hemogram (08/12/2017 6:29 AM EST) Analysis Performed At Patho logist Time Signature WBC 10.1 (H) 4.0 - 9.5 [facility] x10(3)/[facility] LABORATORY RBC 3.02 (L) 4.58 - [place] 5.54 [facility] x10(6)/[facility] LABORATORY Hemoglobin 8.7 (L) 13.7 - [facility] gm/dL [facility] LABORATORY Hematocrit 28.1 (L) 40.5 - [facility] 48.5 % [facility] LABORATORY MCV 93.0 82.9 - [facility] 93.1 [facility] LABORATORY MCH 28.8 27.5 - [facility] 32.1 pg [facility] LABORATORY MCHC 31.0 (L) 32.0 - [facility] 35.7 gm/dL [facility] LABORATORY Platelets 223 145 - 357 [facility] x10(3)/[facility] LABORATORY RDWSD 56.1 (H) 36.0 - [facility] 45.0 [facility] LABORATORY RDWCV 16.4 (H) 11.4 - [facility] 13.8 % [facility] LABORATORY MPV 9.0 7.6 - 12.9 [facility] LABORATORY nRBC % Auto 0.0 % [facility] LABORATORY nRBC Abs Auto 0.000 0.000 - [facility] 0.000 [facility] x10(3)/[facility] LABORATORY Specimen Anatomical Collection Method Collection Time Receive d Time (Source) Location / / Volume Laterality Blood specimen 08/12/2017 6:29 AM 018 6:38 (specimen) EST AM EST Resulting Agency Comment Spec In Lab Yonathan Smith MD HEMATOLOGY ORDERABLES Performing Organization Address City/State/ZIP Code Phon e Number [address] (ABNORMAL) Prothrombin Time (08/12/2017 6:29 AM EST) P athologist Signature PT 16.1 (H) 11.8 - 14.0 [facility] LABORATORY INR 1.3 (H) 0.9 [...] Organization Address City/State/[place] [address] (ABNORMAL) Basic Metabolic Panel (non-fasting) (08/12/2017 6:29 AM EST) P athologist Signature Glucose Lvl 151 65 - 199 [facility] mg/dL [facility] LABORATORY Comment: Diabetes: >=200 mg/dL plus symp toms BUN 18 10 - 20 mg/dL [facility] LABORATORY Creatinine 1.11 0.80 - 1.50 mg/dL [facility] LABORATORY Sodium 138 135 - 145 [...] - 15 mmol/L [facility] LABORATORY Calcium 7.9 (L) 8.5 - 10.5 mg/dL [facility] LABORATORY Estimated GFR >60 >=60 [facility] LABORATORY Comment: The reported eGFR should be multiplied b y 1.2 for patients. The MDRD is not an appropriate measure o f renal function for patients with body mass extremes or in patients with acute kidney failure. http://[facility]/DHnkdep http://[facility]/DHMCnkf Specimen Anatomical Collection Method Collection Time Receive d Time (Source) Location / / Volume Laterality Blood specimen 08/12/2017 6:29 AM 018 6:38 (specimen) EST AM EST Resulting Agency Comment Spec In Lab Yonathan Smith MD CHEMISTRY ORDERABLES Performing Organization Address City/[facility]/ZIP Code Phon e Number [address] POCT Glucose (08/12/2017 4:08 AM EST) athologist Signature POC Glucose 181 65 - 199 [facility] mg/dL [facility] LABORATORY Comment: Supplemental ranges: <140 mg/dL before meals <180 mg/dL all other times of the day Specimen Anatomical Collection Method Collection Time Receive d Time (Source) Location / / Volume Laterality Blood specimen 08/12/2017 4:08 AM 018 4:08 (specimen) EST AM EST Yonathan Smith MD POINT OF CARE TEST ORDERABLE S Performing Organization Address City/[facility]/[place]IP [place] [address] (ABNORMAL) POCT Glucose (08/12/2017 12:17 AM EST) athologist Signature POC Glucose 221 (H) 65 - [address] [facility] LABORATORY Comment: Supplemental ranges: <140 mg/dL before meals <180 mg/dL all other times of the day Specimen Anatomical Collection Method Collection Time Receive d Time (Source) Location / / Volume Laterality Blood specimen 08/12/2017 12:17 8 (specimen) AM EST 12:17 AM EST Yonathan Smith MD POINT OF CARE TEST ORDERABLE S Performing Organization Address City/[facility]/[place] [address] (ABNORMAL) POCT Glucose (08/11/2017 8:52 PM EST) athologist Signature POC Glucose 221 (H) 65 - [address] [facility]dL [facility] LABORATORY Comment: Supplemental ranges: <140 mg/dL before meals <180 mg/dL all other times of the day Specimen Anatomical Collection Method Collection Time Receive d Time (Source) Location / / Volume Laterality Blood specimen 08/11/2017 8:52 PM 018 8:52 (specimen) EST PM EST Yonathan Smith MD POINT OF CARE TEST ORDERABLE S Performing Organization Address City/State/[place] [address] POCT Glucose (08/11/2017 5:59 PM EST) athologist Signature POC Glucose 169 65 - [address] [facility]dL [facility] LABORATORY Comment: Supplemental ranges: <140 mg/dL before meals <180 mg/dL all other times of the day Specimen Anatomical Collection Method Collection Time Receive d Time (Source) Location / / Volume Laterality Blood specimen 08/11/2017 5:59 PM 018 5:59 (specimen) EST PM EST Yonathan Smith MD POINT OF CARE TEST ORDERABLE S Performing Organization Address City/[facility]/ZIP [place] [address] (ABNORMAL) POCT Glucose (08/11/2017 4:08 PM EST) athologist Signature POC Glucose 240 (H) 65 - [address] [facility]dL [facility] LABORATORY Comment: Supplemental ranges: <140 mg/dL before meals <180 mg/dL all other times of the day Specimen Anatomical Collection Method Collection Time Receive d Time (Source) Location / / Volume Laterality Blood specimen 08/11/2017 4:08 PM 018 4:08 (specimen) EST PM EST Yonathan Smith MD POINT OF CARE TEST ORDERABLE S Performing Organization Address City/State/Z[place] [address] POCT Glucose (08/11/2017 12:04 PM EST) athologist Signature POC Glucose 182 65 - 199 [facility] mg/dL [facility] LABORATORY Comment: Supplemental ranges: <140 mg/dL before meals <180 mg/dL all other times of the day Specimen Anatomical Collection Method Collection Time Receive d Time (Source) Location / / Volume Laterality Blood specimen 08/11/2017 12:04 8 (specimen) PM EST 12:04 PM EST Yonathan Smith MD POINT OF CARE TEST ORDERABLE S Performing Organization Address City/State/ZIP Code Phon e Number [address] POCT Glucose (08/11/2017 7:31 AM EST) athologist Signature POC Glucose 156 65 - 199 [facility] mg/dL [facility] LABORATORY Comment: Supplemental ranges: <140 mg/dL before meals <180 mg/dL all other times of the day Specimen Anatomical Collection Method Collection Time Receive d Time (Source) Location / / Volume Laterality Blood specimen 08/11/2017 7:31 AM 018 7:31 (specimen) EST AM EST Yonathan Smith MD POINT OF CARE TEST ORDERABLE S Performing Organization Address City/State/ZIP Code Phon e Number [address] (ABNORMAL) Differential, Automated (08/11/2017 6:16 AM EST) [facility] gist Method Time Signature Neutrophils % 83.7 % [facility] LABORATORY Neutr Abs (ANC) 10.76 (H) 1.70 - [facility] 6.10 [facility] x10(3)/[facility] L LABORATORY Lymphocytes % 6.0 % [facility] LABORATORY Lymphocytes Abs 0.8 (L) 0.9 - 3.2 [facility] x10(3)/[facility] LABORATORY Monocytes % 7.5 % [facility] LABORATORY Monocyte Abs 1.0 (H) 0.3 - 0.9 [facility] x10(3)/[facility] LABORATORY Eosinophils % 2.0 % [facility] LABORATORY Eosinophils Abs 0.3 0.0 - 0.4 [facility] x10(3)/[facility] LABORATORY Basophils % 0.3 % [facility] LABORATORY Basophils Abs 0.0 0.0 - 0.1 [facility] x10(3)/[facility] LABORATORY Immature Gran % 0.50 % [...] Gran Abs 0.06 (H) 0.00 - 0.04 x10(3)/[facility] LABORATORY Specimen Anatomical Collection Method Collection Time Receive d Time (Source) Location / / Volume Laterality Blood specimen 08/11/2017 6:16 AM 018 6:24 (specimen) EST AM EST Resulting Agency Comment Spec In Lab Yonathan Smith MD HEMATOLOGY ORDERABLES Performing Organization Address City/State/ZIP Code Phon e Number [place] [id number] HOSPITAL LAB[address]ORY Drive (ABNORMAL) Hemogram (08/11/2017 6:16 AM EST) Analysis Performed At Patho logist Time Signature WBC 12.9 (H) 4.0 - 9.5 [facility] x10(3)/[facility] LABORATORY RBC 3.28 (L) 4.58 - [facility] 5.54 [facility] x10(6)/[facility] LABORATORY Hemoglobin 9.5 (L) 13.7 - [facility] gm/dL [facility] LABORATORY Hematocrit 29.8 (L) 40.5 - [facility] 48.5 % [facility] LABORATORY MCV 90.9 82.9 [facility] 93.1 fL [facility] LABORATORY MCH 29.0 27.5 - [facility] 32.1 pg [facility] LABORATORY MCHC 31.9 (L) 32.0 - [facility] 35.7 gm/dL [facility] LABORATORY Platelets 236 145 - 357 [facility] x10(3)/[facility] LABORATORY RDWSD 53.5 (H) 36.0 - [facility] 45.0 [facility] LABORATORY RDWCV 16.3 (H) 11.4 - [facility] 13.8 % [facility] LABORATORY MPV 8.8 7.6 - 12.9 [facility] LABORATORY nRBC % Auto 0.0 % [facility] LABORATORY nRBC Abs Auto 0.000 0.000 - [place] [facility] 0.000 [facility] x10(3)/[facility] LABORATORY Specimen Anatomical Collection Method Collection Time Receive d Time (Source) Location / / Volume Laterality Blood specimen 08/11/2017 6:16 AM 018 6:24 (specimen) EST AM EST Resulting Agency Comment Spec In Lab Yonathan Smith MD HEMATOLOGY ORDERABLES Performing Organization Address City/[facility] [place] [address] (ABNORMAL) Prothrombin Time (08/11/2017 6:16 AM EST) P athologist Signature PT 15.5 (H) 11.8 - 14.0 [facility] LABORATORY INR 1.3 (H) 0.9 [...] Smith MD HEMATOLOGY ORDERABLES Performing Organization Address City/[facility] [place] [address] Basic Metabolic Panel (non-fasting) (08/11/2017 6:16 AM EST) P athologist Signature Glucose Lvl 139 65 - 199 [facility] mg/dL [facility] LABORATORY Comment: Diabetes: >=200 mg/dL plus symp toms BUN 12 10 - 20 mg/dL [facility] LABORATORY Creatinine 0.91 0.80 - 1.50 mg/dL [facility] LABORATORY Sodium 138 135 - 145 [...] Anion Gap 13 5 - 15 mmol/L [facility] LABORATORY Calcium 8.5 8.5 - 10.5 mg/dL [facility] LABORATORY Estimated GFR >60 >=60 [facility] LABORATORY Comment: The reported eGFR should be multiplied b y 1.2 for patients. The MDRD is not an appropriate measure o f renal function for patients with body mass extremes or in patients with acute kidney failure. http://[facility]/DHnkdep http://[facility]/DHMCnkf Specimen Anatomical Collection Method Collection Time Receive d Time (Source) Location / / Volume Laterality Blood specimen 08/11/2017 6:16 AM 018 6:24 (specimen) EST AM EST Resulting Agency Comment Spec In Lab Yonathan Smith MD CHEMISTRY ORDERABLES Performing Organization Address City/State/[place] [address] POCT Glucose (08/11/2017 4:07 AM EST) athologist Signature POC Glucose 162 65 - 199 [facility] mg/dL [facility] LABORATORY Comment: Supplemental ranges: <140 mg/dL before meals <180 mg/dL all other times of the day Specimen Anatomical Collection Method Collection Time Receive d Time (Source) Location / / Volume Laterality Blood specimen 08/11/2017 4:07 AM 018 4:07 (specimen) EST AM EST Yonathan Smith MD POINT OF CARE TEST ORDERABLE S Performing Organization Address City/State/Z[place] [address] POCT Glucose (08/10/2017 11:59 PM EST) athologist Signature POC Glucose 166 65 - 199 [place] mg/dL [facility] LABORATORY Comment: Supplemental ranges: <140 mg/dL before meals <180 mg/dL all other times of the day Specimen Anatomical Collection Method Collection Time Receive d Time (Source) Location / / Volume Laterality Blood specimen 08/10/2017 11:59 8 (specimen) PM EST 11:59 PM EST Yonathan Smith MD POINT OF CARE TEST ORDERABLE S Performing Organization Address City/[facility]/ZIP [place] [address] POCT Glucose (08/10/2017 8:12 PM EST) athologist Signature POC Glucose 156 65 - 199 [facility] mg/dL [facility] LABORATORY Comment: Supplemental ranges: <140 mg/dL before meals <180 mg/dL all other times of the day Specimen Anatomical Collection Method Collection Time Receive d Time (Source) Location / / Volume Laterality Blood specimen 08/10/2017 8:12 PM 018 8:12 (specimen) EST PM EST Yonathan Smith MD POINT OF CARE TEST ORDERABLE S Performing Organization Address City/State/[place] [address] (ABNORMAL) POCT Glucose (08/10/2017 4:42 PM EST) athologist Signature POC Glucose 211 (H) 65 - 199 [place] mg/dL [facility] LABORATORY Comment: Supplemental ranges: <140 mg/dL before meals <180 mg/dL all other times of the day Specimen Anatomical Collection Method Collection Time Receive d Time (Source) Location / / Volume Laterality Blood specimen 08/10/2017 4:42 PM 018 4:42 (specimen) EST PM EST Yonathan Smith MD POINT OF CARE TEST ORDERABLE S Performing Organization Address City/State/[place] [address] (ABNORMAL) Differential, Automated (08/10/2017 2:30 PM EST) [facility] gist Method Time Signature Neutrophils % 87.6 % [facility] LABORATORY Neutr Abs (ANC) 9.90 (H) 1.70 - [facility] 6.10 [facility] x10(3)/[facility] LABORATORY Lymphocytes % 4.3 % [facility] LABORATORY Lymphocytes Abs 0.5 (L) 0.9 - 3.2 [facility] x10(3)/[facility] LABORATORY Monocytes % 6.0 % [facility] LABORATORY Monocyte Abs 0.7 0.3 - 0.9 [facility] x10(3)/[facility] LABORATORY Eosinophils % 1.1 % [facility] LABORATORY Eosinophils Abs 0.1 0.0 - 0.4 [facility] x10(3)/[facility] LABORATORY Basophils % 0.4 % [facility] LABORATORY Basophils Abs 0.0 0.0 - 0.1 [facility] x10(3)/[facility] LABORATORY Immature Gran % 0.60 % [...] Gran Abs 0.07 (H) 0.00 - 0.04 x10(3)/[facility] LABORATORY Specimen Anatomical Collection Method Collection Time Receive d Time (Source) Location / / Volume Laterality Blood specimen 08/10/2017 2:30 PM 018 2:48 (specimen) EST PM EST Resulting Agency Comment Spec In Lab Yonathan Smith MD HEMATOLOGY ORDERABLES Performing Organization Address City/State/[place] [address] (ABNORMAL) Hemogram (08/10/2017 2:30 PM EST) Analysis Performed At Patho logist Time Signature WBC 11.3 (H) 4.0 - 9.5 [facility] x[facility](3[facility] LABORATORY RBC 3.13 (L) 4.58 - [place] 5.54 [facility] x10(6)/[facility] LABORATORY Hemoglobin 8.9 (L) 13.7 - [facility] 16.5 gm/dL [facility] LABORATORY Hematocrit 28.4 (L) 40.5 - [facility] 48.5 % [facility] LABORATORY MCV 90.7 82.9 - [facility] 93.1 [facility] LABORATORY MCH 28.4 27.5 - [place] [facility] 32.1 pg [facility] LABORATORY MCHC 31.3 (L) 32.0 - [place] [facility] 35.7 gm/dL [facility] LABORATORY Platelets 213 145 - 357 [facility] x10(3)/[facility] LABORATORY RDWSD 53.7 (H) 36.0 - [facility] 45.0 [facility] LABORATORY RDWCV 16.4 (H) 11.4 - [facility] 13.8 % [facility] LABORATORY MPV 8.9 7.6 - 12.9 [facility] LABORATORY nRBC % Auto 0.0 % [facility] LABORATORY nRBC Abs Auto 0.000 0.000 - [facility] SU 0.000 [facility] x10(3)/[facility] LABORATORY Specimen Anatomical Collection Method Collection Time Receive d Time (Source) Location / / Volume Laterality Blood specimen 08/10/2017 2:30 PM 018 2:48 (specimen) EST PM EST Resulting Agency Comment Spec In Lab Yonathan Smith MD HEMATOLOGY ORDERABLES Performing Organization Address City/[facility]/[place] [address] (ABNORMAL) POCT Glucose (08/10/2017 1:50 PM EST) athologist Signature POC Glucose 243 (H) 65 - [address] [facility]/dL [facility] LABORATORY Comment: Supplemental ranges: <140 mg/dL before meals <180 mg/dL all other times of the day Specimen Anatomical Collection Method Collection Time Receive d Time (Source) Location / / Volume Laterality Blood specimen 08/10/2017 1:50 PM 018 1:50 (specimen) EST PM EST Yonathan Smith MD POINT OF CARE TEST ORDERABLE S Performing Organization Address City/State/ZIP Code Phon e Number [address] POCT Glucose (08/10/2017 11:21 AM EST) athologist [facility] POC Glucose 156 65 - 199 [facility] mg/dL [facility] LABORATORY Comment: Supplemental ranges: <140 mg/dL before meals <180 mg/dL all other times of the day Specimen Anatomical Collection Method Collection Time Receive d Time (Source) Location / / Volume Laterality Blood specimen 08/10/2017 11:21 8 (specimen) AM EST 11:21 AM EST Yonathan Smith MD POINT OF CARE TEST ORDERABLE S Performing Organization Address City/State/ZIP Code Phon e Number [address] (ABNORMAL) Differential, Automated (08/10/2017 10:28 AM EST) [facility] gist Method Time Signature Neutrophils % 85.3 % [facility] LABORATORY Neutr Abs (ANC) 9.43 (H) 1.70 - [facility] 6.10 [facility] x10(3)/[facility] L LABORATORY Lymphocytes % 5.5 % [facility] LABORATORY Lymphocytes Abs 0.6 (L) 0.9 - 3.2 [facility] x10(3)/[facility] LABORATORY Monocytes % 5.9 % [facility] LABORATORY Monocyte Abs 0.6 0.3 - 0.9 [facility] x10(3)/[facility] LABORATORY Eosinophils % 2.1 % [facility] LABORATORY Eosinophils Abs 0.2 0.0 - 0.4 [facility] x10(3)/[facility] LABORATORY Basophils % 0.4 % [facility] LABORATORY Basophils Abs 0.0 0.0 - 0.1 [facility] x10(3)/[facility] LABORATORY Immature Gran % 0.80 % [...] Gran Abs 0.09 (H) 0.00 - 0.04 x10(3)/[facility] LABORATORY Specimen Anatomical Collection Method Collection Time Receive d Time (Source) Location / / Volume Laterality Blood specimen 08/10/2017 10:28 8 (specimen) AM EST 10:35 AM EST Resulting Agency Comment Spec In Lab Yonathan Smith MD HEMATOLOGY ORDERABLES Performing Organization Address City/State/ZIP Code Phon e Number [place] [id number] (ABNORMAL) Hemogram (08/10/2017 10:28 AM EST) Analysis Performed At Patho logist Time Signature WBC 11.0 (H) 4.0 - 9.5 [facility] x10(3)/[facility] LABORATORY RBC 3.02 (L) 4.58 - [facility] 5.54 [facility] x10(6)/[facility] LABORATORY Hemoglobin 8.8 (L) 13.7 - [facility] 16.5 gm/dL [facility] LABORATORY Hematocrit 28.1 (L) 40.5 - [facility] 48.5 % [facility] LABORATORY MCV 93.0 82.9 [facility] 93.1 fL [facility] LABORATORY MCH 29.1 27.5 [facility] 32.1 pg [facility] LABORATORY MCHC 31.3 (L) 32.0 - [facility] 35.7 gm/dL [facility] LABORATORY Platelets 207 145 - 357 [facility] x10(3)/[facility] LABORATORY RDWSD 55.3 (H) 36.0 - [place] [address] [facility] RDWCV 16.4 (H) 11.4 - [place] ZHAOSU 13.8 % [facility] MPV 9.0 7.6 - 12.[address] [facility] nRBC % Auto 0.0 % [facility] [place] [place] nRBC Abs Auto 0.000 0.000 - [place] 0.000 [facility] x10(3)/[facility] LABORATORY Specimen Anatomical Collection Method Collection Time Receive d Time (Source) Location / / Volume Laterality Blood specimen 08/10/2017 10:28 8 (specimen) AM EST 10:35 AM EST Resulting Agency Comment Spec In Lab Yonathan Smith MD HEMATOLOGY ORDERABLES Performing Organization Address City/State/ZIP [place] [address] VS Angiogram/intervention (vascular) (08/10/2017 [...] 2.5x80 5. Completion RLE angiogram 6. L CARGO SURVEYOR angiogram 7. 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 L CARGO SURVEYOR access in the distal L CARGO SURVEYOR. - Closure device: Mynx Technical Procedure: ?The [...] for a 45cm 5F Destination. V18 and Hancock a nd QuickCross catheters were used to [...] bifurcation. Access appeared in the distal R CARGO SURVEYOR. Closure and sheath removal was performed with [...] 2.5x80 5. Completion RLE angiogram 6. L CARGO SURVEYOR angiogram 7. 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 L CARGO SURVEYOR access in the distal L CARGO SURVEYOR. - Closure device: Mynx Technical Procedure: The [...] for a 45cm 5F Destination. V18 and Hancock a nd QuickCross catheters were used to [...] bifurcation. Access appeared in the distal R CARGO SURVEYOR. Closure and sheath removal was performed with [...] (ABNORMAL) Differential, Automated (08/10/2017 5:50 AM EST) [facility] Method Time Signature Neutrophils % 80.1 % [facility] LABORATORY Neutr Abs (ANC) 9.01 (H) 1.70 - [facility] 6.10 [facility] x10(3)/[facility] LABORATORY Lymphocytes % 8.8 % [facility] LABORATORY Lymphocytes Abs 1.0 0.9 - 3.2 [facility] x10(3)/[facility] LABORATORY Monocytes % 8.3 % [facility] LABORATORY Monocyte Abs 0.9 0.3 - 0.9 [facility] x10(3)/[facility] LABORATORY Eosinophils % 2.0 % [facility] LABORATORY Eosinophils Abs 0.2 0.0 - 0.4 [facility] x10(3)/[facility] LABORATORY Basophils % 0.4 % [facility] LABORATORY Basophils Abs 0.0 0.0 - 0.1 [facility] x10(3)/[facility] LABORATORY Immature Gran % 0.40 % [...] Gran Abs 0.05 (H) 0.00 - 0.04 x10(3)/[facility] LABORATORY Specimen Anatomical Collection Method Collection Time Receive d Time (Source) Location / / Volume Laterality Blood specimen 08/10/2017 5:50 AM 018 5:59 (specimen) EST AM EST Resulting Agency Comment Spec In Lab Yonathan Smith MD HEMATOLOGY ORDERABLES Performing Organization Address City/State/[place] [address] (ABNORMAL) Hemogram (08/10/2017 5:50 AM EST) Analysis Performed At Patho logist Time Signature WBC 11.3 (H) 4.0 - 9.5 [facility] x10(3)/[facility] LABORATORY RBC 3.15 (L) 4.58 - [facility] 5.54 [facility] x10(6)/[facility] LABORATORY Hemoglobin 8.9 (L) 13.7 - [facility] 16.[facility] gm/dL [facility] LABORATORY Hematocrit 29.0 (L) 40.5 - [facility] 48.5 % [facility] LABORATORY MCV 92.1 82.9 [facility].1 [facility] LABORATORY MCH 28.3 27.5 - [facility] 32.1 pg [facility] LABORATORY MCHC 30.7 (L) 32.0 - [facility] 35.7 gm/dL [facility] LABORATORY Platelets 231 145 - 357 [facility] x10(3)/[facility] LABORATORY RDWSD 53.9 (H) 36.0 - [facility] SU 45.0 [facility] LABORATORY RDWCV 16.2 (H) 11.4 - [facility] SU 13.8 % [facility] LABORATORY MPV 8.7 7.6 - 12.9 [facility] LABORATORY nRBC % Auto 0.0 % [facility] LABORATORY nRBC Abs Auto 0.000 0.000 - [place] [facility] 0.000 [facility] x10(3)/[facility] LABORATORY Specimen Anatomical Collection Method Collection Time Receive d Time (Source) Location / / Volume Laterality Blood specimen 08/10/2017 5:50 AM 018 5:59 (specimen) EST AM EST Resulting Agency Comment Spec In Lab Yonathan Smith MD HEMATOLOGY ORDERABLES Performing Organization Address City/[facility]/[place] [address] (ABNORMAL) Basic Metabolic Panel (non-fasting) (08/10/2017 5:50 AM EST) P athologist Signature Glucose Lvl 135 65 - 199 [facility] mg/dL [facility] LABORATORY Comment: Diabetes: >=200 mg/dL plus symp toms BUN 17 10 - 20 mg/dL [facility] LABORATORY Creatinine 1.05 0.80 - 1.50 mg/dL [facility] LABORATORY Sodium 144 135 - 145 mmol/L [facility] LABORATORY [...] Anion Gap 13 5 - 15 mmol/L [facility] LABORATORY Calcium 8.1 (L) 8.5 - 10.5 mg/dL [facility] LABORATORY Estimated GFR >60 >=60 [facility] LABORATORY Comment: The reported eGFR should be multiplied b y 1.2 for patients. The MDRD is not an appropriate measure o f renal function for patients with body mass extremes or in patients with acute kidney failure. http://[employer]HistoRx/DHnkdep http://[employer]HistoRx/DHMCnkf Specimen Anatomical Collection Method Collection Time Receive d Time (Source) Location / / Volume Laterality Blood specimen 08/10/2017 5:50 AM 018 5:59 (specimen) EST AM EST Resulting Agency Comment Spec In Lab Yonathan Smith MD CHEMISTRY ORDERABLES Performing Organization Address City/State/[place] [address] (ABNORMAL) Prothrombin Time (08/10/2017 5:50 AM EST) athologist Signature PT 16.8 (H) 11.8 - 14.0 [facility] LABORATORY INR 1.4 (H) 0.9 - 1.1 [...] Organization Address City/State/[place] [address] (ABNORMAL) POCT Glucose (08/10/2017 4:01 AM EST) athologist Signature POC Glucose 206 (H) 65 - [address] [facility] mg/dL [facility] LABORATORY Comment: Supplemental ranges: <140 mg/dL before meals <180 mg/dL all other times of the day Specimen Anatomical Collection Method Collection Time Receive d Time (Source) Location / / Volume Laterality Blood specimen 08/10/2017 4:01 AM 018 4:01 (specimen) EST AM EST Yonathan Smith MD POINT OF CARE TEST ORDERABLE S Performing Organization Address City/State/[place] [address] POCT Glucose (08/10/2017 2:01 AM EST) athologist Signature POC Glucose 188 65 - 199 [facility] mg/dL [facility] LABORATORY Comment: Supplemental ranges: <140 mg/dL before meals <180 mg/dL all other times of the day Specimen Anatomical Collection Method Collection Time Receive d Time (Source) Location / / Volume Laterality Blood specimen 08/10/2017 2:01 AM 018 2:01 (specimen) EST AM EST Yonathan Smith MD POINT OF CARE TEST ORDERABLE S Performing Organization Address City/[facility]/[place]IP [place] [address] (ABNORMAL) POCT Glucose (08/09/2017 11:42 PM EST) athologist Signature POC Glucose 283 (H) 65 - [address] [facility] mg/dL [facility] LABORATORY Comment: Supplemental ranges: <140 mg/dL before meals <180 mg/dL all other times of the day Specimen Anatomical Collection Method Collection Time Receive d Time (Source) Location / / Volume Laterality Blood specimen 08/09/2017 11:42 8 (specimen) PM EST 11:42 PM EST Yonathan Smith MD POINT OF CARE TEST ORDERABLE S Performing Organization Address City/[facility]/ZIP [place] [address] POCT Glucose (08/09/2017 8:55 PM EST) athologist Signature POC Glucose 182 65 - [address] [facility]/dL [facility] LABORATORY Comment: Supplemental ranges: <140 mg/dL before meals <180 mg/dL all other times of the day Specimen Anatomical Collection Method Collection Time Receive d Time (Source) Location / / Volume Laterality Blood specimen 08/09/2017 8:55 PM 018 8:55 (specimen) EST PM EST Yonathan Smith MD POINT OF CARE TEST ORDERABLE S Performing Organization Address City/[facility]/ZIP [place] [address] (ABNORMAL) APTT (08/09/2017 6:42 PM EST) athologist Signature PTT 90 (H) 25 - 35 sec [facility] LABORATORY Comment: The recommended therapeutic range for fu ll dose, unfractionated heparin at [facility] is 80 ? 114 seconds. The use [...] Smith MD HEMATOLOGY ORDERABLES Performing Organization Address City/[facility]/ZIP Code Phon e Number [address] POCT Glucose (08/09/2017 4:41 PM EST) athologist Signature POC Glucose 195 65 - 199 [facility] mg/dL [facility] LABORATORY Comment: Supplemental ranges: <140 mg/dL before meals <180 mg/dL all other times of the day Specimen Anatomical Collection Method Collection Time Receive d Time (Source) Location / / Volume Laterality Blood specimen 08/09/2017 4:41 PM 018 4:41 (specimen) EST PM EST Yonathan Smith MD POINT OF CARE TEST ORDERABLE S Performing Organization Address City/[facility]/ZIP Code Phon e Number [address] POCT Glucose (08/09/2017 12:29 PM EST) athologist Signature POC Glucose 140 65 - 199 [place] [facility] mg/dL [facility] LABORATORY Comment: Supplemental ranges: <140 mg/dL before meals <180 mg/dL all other times of the day Specimen Anatomical Collection Method Collection Time Receive d Time (Source) Location / / Volume Laterality Blood specimen 08/09/2017 12:29 8 (specimen) PM EST 12:29 PM EST Yonathan Smith MD POINT OF CARE TEST ORDERABLE S Performing Organization Address City/[facility]/ZIP Code Phon e Number [address] POCT Glucose (08/09/2017 9:59 AM EST) athologist Signature POC Glucose 135 65 - 199 [place] [facility] mg/dL [facility] LABORATORY Comment: Supplemental ranges: <140 mg/dL before meals <180 mg/dL all other times of the day Specimen Anatomical Collection Method Collection Time Receive d Time (Source) Location / / Volume Laterality Blood specimen 08/09/2017 9:59 AM 018 9:59 (specimen) EST AM EST Yonathan Smith MD POINT OF CARE TEST ORDERABLE S Performing Organization Address [facility]/ZIP Code Phon e Number [address] Specimen to Pathology (08/09/2017 8:41 AM EST) Specimen Anatomical Collection Method Collection Time Receive d Time (Source) Location / / Volume Laterality AP Specimen 08/09/2017 8:41 AM 8 8:41 EST AM EST Narrative [facility] LABORAT ORY - 08/09/2017 8:41 AM EST Specimen requisition ordered. ??Separate Pathology report to follow Yonathan Smith MD PATHOLOGY/CYTOLOGY ORDERABLE S Performing Organization Address City/[facility]/ZIP [place] [address] Surgical Pathology Report (08/09/2017 8:40 AM EST) Component Value Ref Test Analysis Performed At [facility] Range Method Time Signature Surgical [id number] ? Location: [facility]; [facility]; A [facility] Report The signing pathologist has (i) examined the relevant preparation(s) for the [facility] specimen(s) and (ii) rendered or confirmed the diagnosis(es) . HOSPITAL LABORATORY . 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 ?Viable proximal resection margins. Electronically signed by: ??Henrique Saravia MD Verified: ??08/13/2017 ?Pathologist Performed at: ??-[facility] Dept. of Pathology, [place], [place] CLINICAL INFORMATION Specimen Submitted: A - [...] Organization Address City/State/[place] [address] Anaerobic Culture (08/09/2017 8:30 AM EST) [facility] Method Time Signature Anaerobic No anaerobic [facility] Culture organisms [facility] LABORATORY Specimen Anatomical Collection Method Collection Time [...] Organization Address City/State/ZIP [place] [address] (ABNORMAL) Abscess/Wound Aspirate Culture (08/09/2017 8:30 AM EST) [facility] Method Time Signature Abscess/Wound Moderate mixed [place] Aspirate bacterial [place] Culture morphotypes [facility] normal LABORATORY cutaneous leroy (A) Gram Stain Rare White Blood Cells [place] Few Gram Positive Cocci in pairs [place] (A) [facility] LABORATORY Organism Gram Positive [place] Cocci in pairs [place] () [facility] LABORATORY Specimen Anatomical Collection [...] - GENERAL ORDER ROBSON Performing Organization Address City/[facility]/ZIP Code Phon e Number [address] POCT Glucose (08/09/2017 4:28 AM EST) P athologist Signature POC Glucose 128 65 - 199 [facility] mg/dL [facility] LABORATORY Comment: Supplemental ranges: <140 mg/dL before meals <180 mg/dL all other times of the day Specimen Anatomical Collection Method Collection Time Receive d Time (Source) Location / / Volume Laterality Blood specimen 08/09/2017 4:28 AM 018 4:28 (specimen) EST AM EST Yonathan Smith MD POINT OF CARE TEST ORDERABLE S Performing Organization Address City/[facility]/ZIP Code Phon e Number [address] [facility] Recheck Status (08/09/2017 1:10 AM EST) [facility] gist Method Time Signature [facility] Type Completed [facility] LABORATORY Specimen Anatomical Collection Method Collection Time Receive d Time (Source) Location / / Volume Laterality Blood specimen 08/09/2017 1:10 AM 01/15/2 018 1:35 (specimen) EST AM EST Resulting Agency Comment Spec In Lab Yonathan Smith MD BLOOD BANK ORDERABLES Performing Organization Address City/State/ZIP Code Phon e Number [address] Antibody screen (08/09/2017 1:10 AM EST) Patholo gist Method Time Signature Ab Screen Negative [facility] LABORATORY Expires at 08/12/2017 [facility] [id number] on: [facility] LABORATORY Specimen Anatomical Collection Method Collection Time Receive d Time (Source) Location / / Volume Laterality Blood specimen 08/09/2017 1:10 AM 018 1:35 (specimen) EST AM EST Resulting Agency Comment Spec In Lab Yonathan Smith MD BLOOD BANK ORDERABLES Performing Organization Address City/[facility]/[place] [address] [address] ABO/Rh Typing (08/09/2017 1:10 AM EST) P athologist Signature ABORh Type O Pos [facility] LABORATORY Specimen Anatomical Collection Method Collection Time Receive d Time (Source) Location / / Volume Laterality Blood specimen 08/09/2017 1:10 AM 018 1:35 (specimen) EST AM EST Resulting Agency Comment Spec In Lab Yonathan Smith MD BLOOD BANK ORDERABLES Performing Organization Address City/[facility]/ZIP [place] [address] (ABNORMAL) APTT (08/09/2017 1:10 AM EST) P athologist Signature PTT 86 (H) 25 - 35 sec [facility] LABORATORY Comment: The recommended therapeutic range for fu ll dose, unfractionated heparin at [facility] is 80 ? 114 seconds. The use [...] Address City/State/ZIP [place] [address] (ABNORMAL) Differential, Automated (08/09/2017 1:10 AM EST) [facility] Method Time Signature Neutrophils % 76.2 % [facility] LABORATORY Neutr Abs (ANC) 8.59 (H) 1.70 - [facility] 6.10 [facility] x10(3)/[facility] LABORATORY Lymphocytes % 11.0 % [facility] LABORATORY Lymphocytes Abs 1.2 0.9 - 3.2 [facility] x10(3)/[facility] LABORATORY Monocytes % 8.4 % [facility] LABORATORY Monocyte Abs 1.0 (H) 0.3 - 0.9 [facility] x10(3)/[facility] LABORATORY Eosinophils % 3.5 % [facility] LABORATORY Eosinophils Abs 0.4 0.0 - 0.4 [facility] x10(3)/[facility] LABORATORY Basophils % 0.5 % [facility] LABORATORY Basophils Abs 0.1 0.0 - 0.1 [facility] x10(3)/[facility] LABORATORY Immature Gran % 0.40 % [...] Gran Abs 0.05 (H) 0.00 - 0.04 x10(3)/[facility] LABORATORY Specimen Anatomical Collection Method Collection Time Receive d Time (Source) Location / / Volume Laterality Blood specimen 08/09/2017 1:10 AM 018 1:19 (specimen) EST AM EST Resulting Agency Comment Spec In Lab Yonathan Smith MD HEMATOLOGY ORDERABLES Performing Organization Address City/State/[place] [address] (ABNORMAL) Hemogram (08/09/2017 1:10 AM EST) Analysis Performed At Patho logist Time Signature WBC 11.3 (H) 4.0 - 9.5 [facility] x[facility](3[facility] LABORATORY RBC 3.47 (L) 4.58 - [place] 5.54 [facility] x10(6)/[facility] LABORATORY Hemoglobin 10.0 (L) 13.7 - [facility] 16[facility] gm/dL [facility] LABORATORY Hematocrit 31.9 (L) 40.5 - [facility] 48.5 % [facility] LABORATORY MCV 91.9 82.9 - [facility] 93.1 [facility] LABORATORY MCH 28.8 27.5 - [facility] 32.1 pg [facility] LABORATORY MCHC 31.3 (L) 32.0 - [facility] 35.7 gm/dL [facility] LABORATORY Platelets 234 145 - 357 [facility] x10(3)/[facility] LABORATORY RDWSD 54.0 (H) 36.0 - [facility] 45.0 [facility] LABORATORY RDWCV 16.2 (H) 11.4 - [facility] 13.8 % [facility] LABORATORY MPV 8.7 7.6 - 12.9 [facility] LABORATORY nRBC % Auto 0.0 % [facility] LABORATORY nRBC Abs Auto 0.000 0.000 - [facility] SU 0.000 [facility] x10(3)/[facility] LABORATORY Specimen Anatomical Collection Method Collection Time Receive d Time (Source) Location / / Volume Laterality Blood specimen 08/09/2017 1:10 AM 018 1:19 (specimen) EST AM EST Resulting Agency Comment Spec In Lab Yonathan Smith MD HEMATOLOGY ORDERABLES Performing Organization Address City/State/ZIP Code Phon e Number [place] [id number] (ABNORMAL) Prothrombin Time (08/09/2017 1:10 AM EST) P athologist Signature PT 16.0 (H) 11.8 - 14.0 [facility] LABORATORY INR 1.3 (H) 0.9 [...] Organization Address City/State/[place] [address] (ABNORMAL) Basic Metabolic Panel (non-fasting) (08/09/2017 1:10 AM EST) athologist Signature Glucose Lvl 108 65 - 199 [facility] mg/dL [facility] LABORATORY Comment: Diabetes: >=200 mg/dL plus symp toms BUN 34 (H) 10 - 20 mg/dL [facility] LABORATORY Creatinine 1.54 (H) 0.80 - 1.50 mg/dL [facility] LABORATORY Sodium 138 135 - 145 mmol/L [facility] LABORATORY Potassium 4.5 3.5 - 5.0 mmol/L [facility] LABORATORY [...] Anion Gap 13 5 - 15 mmol/L [facility] LABORATORY Calcium 8.3 (L) 8.5 - 10.5 mg/dL [facility] LABORATORY Estimated GFR 45 (L) >=60 [facility] LABORATORY Comment: The reported eGFR should be multiplied b y 1.2 for patients. The MDRD is not an appropriate measure o f renal function for patients with body mass extremes or in patients with acute kidney failure. http://[employer]/DHnkdep http://[employer]/DHMCnkf Specimen Anatomical Collection Method Collection Time Receive d Time (Source) Location / / Volume Laterality Blood specimen 08/09/2017 1:10 AM 018 1:19 (specimen) EST AM EST Resulting Agency Comment Spec In Lab Yonathan Smith MD CHEMISTRY ORDERABLES Performing Organization Address City/[facility]/ZIP Code Phon e Number [address] POCT Glucose (08/09/2017 12:05 AM EST) athologist Signature POC Glucose 128 65 - [address] [facility] mg/dL [facility] LABORATORY Comment: Supplemental ranges: <140 mg/dL before meals <180 mg/dL all other times of the day Specimen Anatomical Collection Method Collection Time Receive d Time (Source) Location / / Volume Laterality Blood specimen 08/09/2017 12:05 8 (specimen) AM EST 12:05 AM EST Yonathan Smith MD POINT OF CARE TEST ORDERABLE S Performing Organization Address City/[facility]/[place] [address] (ABNORMAL) POCT Glucose (08/08/2017 7:36 PM EST) P athologist Signature POC Glucose 215 (H) 65 - [address] [facility] mg/dL [facility] LABORATORY Comment: Supplemental ranges: <140 mg/dL before meals <180 mg/dL all other times of the day Specimen Anatomical Collection Method Collection Time Receive d Time (Source) Location / / Volume Laterality Blood specimen 08/08/2017 7:36 PM 018 7:36 (specimen) EST PM EST Yonathan Smith MD POINT OF CARE TEST ORDERABLE S Performing Organization Address City/State/[place] [address] (ABNORMAL) POCT Glucose (08/08/2017 6:23 PM EST) athologist Signature POC Glucose 216 (H) 65 - [address] [facility] mg/dL [facility] LABORATORY Comment: Supplemental ranges: <140 mg/dL before meals <180 mg/dL all other times of the day Specimen Anatomical Collection Method Collection Time Receive d Time (Source) Location / / Volume Laterality Blood specimen 08/08/2017 6:23 PM 018 6:23 (specimen) EST PM EST Yonathan Smith MD POINT OF CARE TEST ORDERABLE S Performing Organization Address City/[facility]/ZIP Code [facility] [place] [address] (ABNORMAL) APTT (08/08/2017 6:00 PM EST) athologist Signature PTT 97 (H) 25 - 35 sec [facility] LABORATORY Comment: The recommended therapeutic range for fu ll dose, unfractionated heparin at [facility] is 80 ? 114 seconds. The use [...] Resulting Agency Comment Spec In Lab Yonathan Simth MD HEMATOLOGY ORDERABLES Performing Organization Address City/State/[place] [address] POCT Glucose (08/08/2017 4:42 PM EST) athologist Signature POC Glucose 78 65 - 199 [facility] mg/dL [facility] LABORATORY Comment: Supplemental ranges: <140 mg/dL before meals <180 mg/dL all other times of the day Specimen Anatomical Collection Method Collection Time Receive d Time (Source) Location / / Volume Laterality Blood specimen 08/08/2017 4:42 PM 018 4:42 (specimen) EST PM EST Yonathan Smith MD POINT OF CARE TEST ORDERABLE S Performing Organization Address City/State/ZIP Code Phon e Number [address] (ABNORMAL) POCT Glucose (08/08/2017 4:01 PM EST) athologist Signature POC Glucose 58 (L) 65 - [address] [facility] mg/dL [facility] LABORATORY Comment: Supplemental ranges: <140 mg/dL before meals <180 mg/dL all other times of the day Specimen Anatomical Collection Method Collection Time Receive d Time (Source) Location / / Volume Laterality Blood specimen 08/08/2017 4:01 PM 018 4:01 (specimen) EST PM EST Yonathan Smith MD POINT OF CARE TEST ORDERABLE S Performing Organization Address City/[facility]/ZIP [place] [address] POCT Glucose (08/08/2017 11:51 AM EST) athologist Signature POC Glucose 90 65 - [address] [facility] mg/dL [facility] LABORATORY Comment: Supplemental ranges: <140 mg/dL before meals <180 mg/dL all other times of the day Specimen Anatomical Collection Method Collection Time Receive d Time (Source) Location / / Volume Laterality Blood specimen 08/08/2017 11:51 8 (specimen) AM EST 11:51 AM EST Yonathan Smith MD POINT OF CARE TEST ORDERABLE S Performing Organization Address City/State/[place] [address] (ABNORMAL) APTT (08/08/2017 10:27 AM EST) athologist Signature PTT 64 (H) 25 - 35 sec [facility] LABORATORY Comment: The recommended therapeutic range for fu ll dose, unfractionated heparin at [facility] is 80 ? 114 seconds. The use [...] Organization Address City/State/[place] [address] POCT Glucose (08/08/2017 8:02 AM EST) athologist Signature POC Glucose 178 65 - 199 [facility] mg/dL [facility] LABORATORY Comment: Supplemental ranges: <140 mg/dL before meals <180 mg/dL all other times of the day Specimen Anatomical Collection Method Collection Time Receive d Time (Source) Location / / Volume Laterality Blood specimen 08/08/2017 8:02 AM 018 8:02 (specimen) EST AM EST Yonathan Smith MD POINT OF CARE TEST ORDERABLE S Performing Organization Address City/[facility]/Z[place] [address] (ABNORMAL) APTT (08/08/2017 4:51 AM EST) athologist Signature PTT >160 25 - 35 [facility] (Critical) sec [facility] LABORATORY Comment: Called by: HOWARD, Read back by: Melba Jaramillo, Date/Time:08/08/17 05:43. The recommended therapeutic range for fu ll dose, unfractionated heparin at [facility] is 80 ? 114 seconds. The use [...] Smith MD HEMATOLOGY ORDERABLES Performing Organization Address City/[facility]/[place] [address] (ABNORMAL) Differential, Automated (08/08/2017 4:51 AM EST) Patholo gist Method Time Signature Neutrophils % 77.9 % [facility] LABORATORY Neutr Abs (ANC) 8.17 (H) 1.70 - [facility] 6.10 [facility] x10(3)/[facility] LABORATORY Lymphocytes % 10.3 % [facility] LABORATORY Lymphocytes Abs 1.1 0.9 - 3.2 [facility] x10(3)/[facility] LABORATORY Monocytes % 7.0 % [facility] LABORATORY Monocyte Abs 0.7 0.3 - 0.9 [facility] x10(3)/[facility] LABORATORY Eosinophils % 3.6 % [facility] LABORATORY Eosinophils Abs 0.4 0.0 - 0.4 [facility] x10(3)/[facility] LABORATORY Basophils % 0.5 % [facility] LABORATORY Basophils Abs 0.0 0.0 - 0.1 [facility] x10(3)/[facility] LABORATORY Immature Gran % 0.70 % [...] Gran Abs 0.07 (H) 0.00 - 0.04 x10(3)/[facility] LABORATORY Specimen Anatomical Collection Method Collection Time Receive d Time (Source) Location / / Volume Laterality Blood specimen 08/08/2017 4:51 AM 018 5:14 (specimen) EST AM EST Resulting Agency Comment Spec In Lab Yonathan Smith MD HEMATOLOGY ORDERABLES Performing Organization Address City/State/[place] [address] (ABNORMAL) Hemogram (08/08/2017 4:51 AM EST) Analysis Performed At Patho logist Time Signature WBC 10.5 (H) 4.0 - 9.5 [facility] x10(3)/[facility] LABORATORY RBC 3.27 (L) 4.58 - [place] 5.54 [facility] x10(6)/[facility] LABORATORY Hemoglobin 9.3 (L) 13.7 - [facility] 16.5 gm/dL [facility] LABORATORY Hematocrit 30.3 (L) 40.5 - [facility] 48.5 % [facility] LABORATORY MCV 92.7 82.9 - [facility] 93.1 [facility] LABORATORY MCH 28.4 27.5 - [place] 32.1 pg [facility] LABORATORY MCHC 30.7 (L) 32.0 - [facility] 35.7 gm/dL [facility] LABORATORY Platelets 252 145 - 357 [facility] x10(3)/[facility] LABORATORY RDWSD 54.6 (H) 36.0 - [facility] 45.0 [facility] LABORATORY RDWCV 16.2 (H) 11.4 - [facility] 13.8 % [facility] LABORATORY MPV 9.1 7.6 - 12.9 [facility] LABORATORY nRBC % Auto 0.0 % [facility] LABORATORY nRBC Abs Auto 0.000 0.000 - [facility] 0.000 [facility] x10(3)/[facility] LABORATORY Specimen Anatomical Collection Method Collection Time Receive d Time (Source) Location / / Volume Laterality Blood specimen 08/08/2017 4:51 AM 018 5:14 (specimen) EST AM EST Resulting Agency Comment Spec In Lab Yonathan Smith MD HEMATOLOGY ORDERABLES Performing Organization Address City/State/[place] [address] (ABNORMAL) Prothrombin Time (08/08/2017 4:51 AM EST) P athologist Signature PT 18.1 (H) 11.8 - 14.0 [facility] LABORATORY INR 1.5 (H) 0.9 - 1.1 [...] Organization Address City/State/[place] [address] (ABNORMAL) Basic Metabolic Panel (non-fasting) (08/08/2017 4:51 AM EST) P athologist Signature Glucose Lvl 229 (H) 65 - 199 [facility] mg/dL [facility] LABORATORY Comment: Diabetes: >=200 mg/dL plus symp toms BUN 35 (H) 10 - 20 mg/dL [facility] LABORATORY Creatinine 1.57 (H) 0.80 - 1.50 mg/dL [facility] LABORATORY Sodium 136 135 - 145 mmol/L [facility] LABORATORY Potassium 4.5 3.5 - 5.0 mmol/L [facility] LABORATORY [...] - 15 mmol/L [facility] LABORATORY Calcium 7.9 (L) 8.5 - 10.5 mg/dL [facility] LABORATORY Estimated GFR 44 (L) >=60 [facility] LABORATORY Comment: The reported eGFR should be multiplied b y 1.2 for patients. The MDRD is not an appropriate measure o f renal function for patients with body mass extremes or in patients with acute kidney failure. http://[employer]/DHnkdep http://[employer]/DHMCnkf Specimen Anatomical Collection Method Collection Time Receive d Time (Source) Location / / Volume Laterality Blood specimen 08/08/2017 4:51 AM 018 5:14 (specimen) EST AM EST Resulting Agency Comment Spec In Lab Yonathan Smith MD CHEMISTRY ORDERABLES Performing Organization Address City/State/ZIP Code Phon e Number [address] POCT Glucose (08/08/2017 4:20 AM EST) athologist Signature POC Glucose 193 65 - 199 [facility] mg/dL [facility] LABORATORY Comment: Supplemental ranges: <140 mg/dL before meals <180 mg/dL all other times of the day Specimen Anatomical Collection Method Collection Time Receive d Time (Source) Location / / Volume Laterality Blood specimen 08/08/2017 4:20 AM 018 4:20 (specimen) EST AM EST Yonathan Smith MD POINT OF CARE TEST ORDERABLE S Performing Organization Address City/[facility]/Z[place] [address] POCT Glucose (08/07/2017 11:11 PM EST) athologist Signature POC Glucose 124 65 - 199 [facility] mg/dL [facility] LABORATORY Comment: Supplemental ranges: <140 mg/dL before meals <180 mg/dL all other times of the day Specimen Anatomical Collection Method Collection Time Receive d Time (Source) Location / / Volume Laterality Blood specimen 08/07/2017 11:11 8 (specimen) PM EST 11:11 PM EST Yonathan Smith MD POINT OF CARE TEST ORDERABLE S Performing Organization Address City/[facility]/ZIP Code Phon e Number [address] (ABNORMAL) APTT (08/07/2017 10:18 PM EST) athologist Signature PTT 114 (H) 25 - 35 sec [facility] LABORATORY Comment: The recommended therapeutic range for fu ll dose, unfractionated heparin at [facility] is 80 ? 114 seconds. The use [...] Smith MD HEMATOLOGY ORDERABLES Performing Organization Address City/[facility] Phon e Number [address] POCT Glucose (08/07/2017 8:10 PM EST) athologist Signature POC Glucose 140 65 - 199 [facility] mg/dL [facility] LABORATORY Comment: Supplemental ranges: <140 mg/dL before meals <180 mg/dL all other times of the day Specimen Anatomical Collection Method Collection Time Receive d Time (Source) Location / / Volume Laterality Blood specimen 08/07/2017 8:10 PM 018 8:10 (specimen) EST PM EST Yonathan Smith MD POINT OF CARE TEST ORDERABLE S Performing Organization Address City/[facility] Code Phon e Number [address] POCT Glucose (08/07/2017 5:27 PM EST) athologist Signature POC Glucose 187 65 - [address] [facility]dL [facility] LABORATORY Comment: Supplemental ranges: <140 mg/dL before meals <180 mg/dL all other times of the day Specimen Anatomical Collection Method Collection Time Receive d Time (Source) Location / / Volume Laterality Blood specimen 08/07/2017 5:27 PM 018 5:27 (specimen) EST PM EST Yonathan Smith MD POINT OF CARE TEST ORDERABLE S Performing Organization Address City/[facility]/ZIP Code Phon e Number [address] POCT Glucose (08/07/2017 3:29 PM EST) athologist Signature POC Glucose 86 65 - 199 [facility] mg/dL [facility] LABORATORY Comment: Supplemental ranges: <140 mg/dL before meals <180 mg/dL all other times of the day Specimen Anatomical Collection Method Collection Time Receive d Time (Source) Location / / Volume Laterality Blood specimen 08/07/2017 3:29 PM 018 3:29 (specimen) EST PM EST Yonathan Smith MD POINT OF CARE TEST ORDERABLE S Performing Organization Address City/[facility] [place] [address] (ABNORMAL) APTT (08/07/2017 2:50 PM EST) athologist Signature PTT 60 (H) 25 - 35 sec [facility] LABORATORY Comment: The recommended therapeutic range for fu ll dose, unfractionated heparin at [facility] is 80 ? 114 seconds. The use [...] Smith MD HEMATOLOGY ORDERABLES Performing Organization Address City/[facility]/ZIP [facility] [place] [address] (ABNORMAL) POCT Glucose (08/07/2017 2:23 PM EST) athologist Signature POC Glucose 55 (L) 65 - 199 [facility] mg/dL [facility] LABORATORY Comment: Supplemental ranges: <140 mg/dL before meals <180 mg/dL all other times of the day Specimen Anatomical Collection Method Collection Time Receive d Time (Source) Location / / Volume Laterality Blood specimen 08/07/2017 2:23 PM 018 2:23 (specimen) EST PM EST Yonathan Smith MD POINT OF CARE TEST ORDERABLE S Performing Organization Address City/[facility]/[place] [address] [facility] [address] POCT Glucose (08/07/2017 12:08 PM EST) P athologist Signature POC Glucose 77 65 - 199 [facility] mg/dL [facility] LABORATORY Comment: Supplemental ranges: <140 mg/dL before meals <180 mg/dL all other times of the day Specimen Anatomical Collection Method Collection Time Receive d Time (Source) Location / / Volume Laterality Blood specimen 08/07/2017 12:08 8 (specimen) PM EST 12:08 PM EST Yonathan Smith MD POINT OF CARE TEST ORDERABLE S Performing Organization Address City/State/ZIP Code Phon e Number [place] [id number] [facility] LABORATORY Drive (ABNORMAL) Differential, Automated (08/07/2017 7:30 AM EST) Patholo gist Method Time Signature Neutrophils % 73.8 % [facility] LABORATORY Neutr Abs (ANC) 7.17 (H) 1.70 - [facility] 6.10 [facility] x10(3)/[facility] LABORATORY Lymphocytes % 12.2 % [facility] LABORATORY Lymphocytes Abs 1.2 0.9 - 3.2 [facility] x10(3)/[facility] LABORATORY Monocytes % 9.0 % [facility] LABORATORY Monocyte Abs 0.9 0.3 - 0.9 [facility] x10(3)/[facility] LABORATORY Eosinophils % 3.9 % [facility] LABORATORY Eosinophils Abs 0.4 0.0 - 0.4 [facility] x10(3)/[facility] LABORATORY Basophils % 0.6 % [facility] LABORATORY Basophils Abs 0.1 0.0 - 0.1 [facility] x10(3)/[facility] LABORATORY Immature Gran % 0.50 % [...] Gran Abs 0.05 (H) 0.00 - 0.04 x10(3)/[facility] LABORATORY Specimen Anatomical Collection Method Collection Time Receive d Time (Source) Location / / Volume Laterality Blood specimen 08/07/2017 7:30 AM 018 7:45 (specimen) EST AM EST Resulting Agency Comment Spec In Lab Yonathan Smith MD HEMATOLOGY ORDERABLES Performing Organization Address City/State/[place] [address] (ABNORMAL) Hemogram (08/07/2017 7:30 AM EST) Analysis Performed At Patho logist Time Signature WBC 9.7 (H) 4.0 - 9.5 [facility] x10(3)/[facility] LABORATORY RBC 3.54 (L) 4.58 - [facility] 5.54 [facility] x10(6)/[facility] LABORATORY Hemoglobin 9.9 (L) 13.7 - [facility] 16.5 gm/dL [facility] LABORATORY Hematocrit 32.3 (L) 40.5 - [facility] 48.5 % [facility] LABORATORY MCV 91.[address] [facility]1 [facility] LABORATORY MCH 28.0 27.5 - [facility] 32.1 pg [facility] LABORATORY MCHC 30.7 (L) 32.0 - [facility] 35.7 gm/dL [facility] LABORATORY Platelets 312 145 - 357 [facility] x10(3)/[facility] [place] LABORATORY RDWSD 53.2 (H) 36.0 - [facility] SU 45.0 [facility] LABORATORY RDWCV 16.0 (H) 11.4 - [facility] SU 13.8 % [facility] LABORATORY MPV 8.9 7.6 - 12.9 [facility] LABORATORY nRBC % Auto 0.0 % [facility] LABORATORY nRBC Abs Auto 0.000 0.000 - [facility] Sharypic 0.000 [facility] x10(3)/[facility] LABORATORY Specimen Anatomical Collection Method Collection Time Receive d Time (Source) Location / / Volume Laterality Blood specimen 08/07/2017 7:30 AM 018 7:45 (specimen) EST AM EST Resulting Agency Comment Spec In Lab Yonathan Smith MD HEMATOLOGY ORDERABLES Performing Organization Address City/State/[place] [address] (ABNORMAL) Basic Metabolic Panel (non-fasting) (08/07/2017 7:30 AM EST) athologist Signature Glucose Lvl 80 65 - 199 [facility] mg/dL [facility] LABORATORY Comment: Diabetes: >=200 mg/dL plus symp toms BUN 31 (H) 10 - 20 mg/dL [facility] LABORATORY Creatinine 1.22 0.80 - 1.50 mg/dL [facility] LABORATORY Sodium 140 135 - 145 mmol/L [facility]OR[facility] Potassium 4.5 3.5 - 5.0 mmol/L [facility] LABORATORY [...] Anion Gap 12 5 - 15 mmol/L [facility] LABOR[facility]ORY Calcium 8.5 8.5 - 10.5 mg/dL [facility] LABOR[facility] Estimated GFR 59 (L) >=60 [facility] LABORATORY Comment: The reported eGFR should be multiplied b y 1.2 for patients. The MDRD is not an appropriate measure o f renal function for patients with body mass extremes or in patients with acute kidney failure. http://[facility]/DHnkdep http://[facility]/DHMCnkf Specimen Anatomical Collection Method Collection Time Receive d Time (Source) Location / / Volume Laterality Blood specimen 08/07/2017 7:30 AM 018 7:45 (specimen) EST AM EST Resulting Agency Comment Spec In Lab Yonathan Smith MD CHEMISTRY ORDERABLES Performing Organization Address City/[facility]/ZIP Code Phon e Number [address] POCT Glucose (08/07/2017 7:27 AM EST) athologist Signature POC Glucose 81 65 - 199 [facility] mg/dL [facility] LABORATORY Comment: Supplemental ranges: <140 mg/dL before meals <180 mg/dL all other times of the day Specimen Anatomical Collection Method Collection Time Receive d Time (Source) Location / / Volume Laterality Blood specimen 08/07/2017 7:27 AM 018 7:27 (specimen) EST AM EST Yonathan Smith MD POINT OF CARE TEST ORDERABLE S Performing Organization Address [facility] Phon e Number [address] APTT (08/07/2017 7:04 AM EST) athologist [facility] PTT 34 25 - 35 sec [facility] LABORATORY Comment: The recommended therapeutic range for fu ll dose, unfractionated heparin at [facility] is 80 ? 114 seconds. The use [...] Smith MD HEMATOLOGY ORDERABLES Performing Organization Address City/[facility]/ZIP [facility] [place] [address] (ABNORMAL) Prothrombin Time (08/07/2017 7:04 AM EST) athologist [facility] PT 17.3 (H) 11.8 - 14.0 [facility] LABORATORY INR 1.4 (H) 0.9 - 1.1 [...] Smith MD HEMATOLOGY ORDERABLES Performing Organization Address City/[facility]/ZIP Code Phon e Number [address] POCT Glucose (08/07/2017 4:03 AM EST) athologist Signature POC Glucose 93 65 - 199 [facility] LABORATORY Comment: Supplemental ranges: <140 mg/dL before meals <180 mg/dL all other times of the day Specimen Anatomical Collection Method Collection Time Receive d Time (Source) Location / / Volume Laterality Blood specimen 08/07/2017 4:03 AM 018 4:03 (specimen) EST AM EST Yonathan Smith MD POINT OF CARE TEST ORDERABLE S Performing Organization Address City/[facility]/ZIP Code Phon e Number [address] POCT Glucose (08/07/2017 12:04 AM EST) athologist Signature POC Glucose 107 65 - [address] [facility] LABORATORY Comment: Supplemental ranges: <140 mg/dL before meals <180 mg/dL all other times of the day Specimen Anatomical Collection Method Collection Time Receive d Time (Source) Location / / Volume Laterality Blood specimen 08/07/2017 12:04 8 (specimen) AM EST 12:04 AM EST Yonathan Smith MD POINT OF CARE TEST ORDERABLE S Performing Organization Address City/[facility]/[place]IP [place] [address] POCT Glucose (08/06/2017 7:56 PM EST) P athologist Signature POC Glucose 178 65 - 199 [facility] mg/dL [facility] LABORATORY Comment: Supplemental ranges: <140 mg/dL before meals <180 mg/dL all other times of the day Specimen Anatomical Collection Method Collection Time Receive d Time (Source) Location / / Volume Laterality Blood specimen 08/06/2017 7:56 PM 018 7:56 (specimen) EST PM EST Yonathan Smith MD POINT OF CARE TEST ORDERABLE S Performing Organization Address City/State/[place] [address] [id number] (08/06/2017 2:32 PM EST) Component Value Ref Test Analysis Performed At Patholo gist Range Method Time Signature VB Text Department: Vascular Surgery Lab VASCUBASE Report Patient: [id number] (GREGORY HOANG) CPT: 1262333 ICD10: I99.8 Referring Physician: YONATHAN SMITH ?? [...] preliminary fi ndings. Electronically Signed by: MADDISON SETRN on 2017-08-06 04:35:29 PM VB Text End [...] Comment: BG 135)1707 (Given - Provider: Chiquis Mcgrath RN)2024 (Not Given - Provider: Mira Truong [...] Marks RN) 0900 (Patch Removed - Provider: Droy Truong RN) Transdermal, EVERY 24 HOURS, First [...] (COMPLETED) 172 (Gi keke - Provider: Chiquis Mcrgath RN) 2.5 mg, Oral, ONCE, 1 dose, [...]
Routine documented in this encounter Care Teams Cloud Physicist Relationship Specialty Start Date End Date Lovely Vicente MD PCP - General 04/16/[address] [place] [address] [address] [place] [address] documented as of this encounter
--- OUTSIDE RECORDS SUMMARY | 2022-02-13 11:14 | XMS_ITS | Encounter Summary ---
:1945 Author Organization [facility] [place] [address] Care Team Providers Name Role Phone Lovely Vicente MD Primary Care Provider Reason for Visit Auth/Cert Specialty Diagnoses / Procedures Referred By Contact Refer red To Contact Diagnoses Critical lower limb ischemia CELLULITIS RT FOOT Procedures EMERGENCY Referral ID Status Reason Start Date Expiration Date Visits Requ ested Visits Authorized [id number] 1 1 Encounter Details Date Type Department Care Team Description 08/11/2017 Surgery Main Operating Room Yonathan Smith (M SURG) DRESSING CHANGE Barbara Ocampo MD (FOR OTHER THAN IVAN) [facility] UNDER ANES. 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 Patient [...] Dorsalis Pedis (Ankle) Artery ?132 ? 0.94 ??[place]field-Biphasic ? Posterior Tibial (Ankle) Artery ??154 ? 1.10 ??[place]-Biphasic ? Fourth Toe ? 67 ?0.48 ?? [...] the foot. Discharge Conditions/Prognosis: Good Discharge to: [facility] Rehab Discharge Medications: Your Medications New [...] For any problems or questions please call [phone] ZELDA Smith, glove maker Nurse Clinician For issues on weeknights after 5pm and weekends please call [phone] and ask for the Vascular Fellow office professionals. General Instructions None Future Appointments and Orders Future Appointments Provider Department Dept Phone 08/26/2017 4:00 PM Aurelia Rivera PA V[facility] Surgery [facility] [place] [phone] 09/07/2017 3:00 PM LAB, THREE L Lab 3L [facility] [phone] 09/07/2017 4:00 PM Luz Prescott MD Endocrinology at [place] [phone] 09/09/2017 8:00 AM Barbra Soares APRN Pain Management [facility] [place] [phone] Please bring a list of your current [...] For any problems or questions please call [phone] ZELDA Smith, glove maker Nurse Clinician For issues on weeknights after 5pm and weekends please call [phone] and ask for the Vascular Fellow office professionals. documented in this encounter Medications at Time [...] of Care Management Discharge Note Patient Destination: [facility] ([facility]) [address] [place] [id number] Transportation: with (at bedside) Time of Discharge: by 12 noon Level of Care: swing Patient Aware: yes Family Notified: yes Md to call report to: Yissel Quintero SCHOOL HEALTH ASSISTANT already called RN to call report to: [phone] Shirin Wolf Office of Care Management Pager [phone] Shirin Wagner RN - 08/16/2017 10:50 AM EST [facility] has offered pt swing bed. Pt and accept bed. will transport via car. SCHOOL HEALTH ASSISTANT Yissel Quintero aware; d/c paperwork will be completed by 12 noon. [facility] requests pt arrival by 1400 today; SCHOOL HEALTH ASSISTANT, RN, and family aware. SCHOOL HEALTH ASSISTANT called [facility] and was told that they prefer pt to arrive with wound vac dressing applied but clamped. SCHOOL HEALTH ASSISTANT applied new wound vac dressing. RN has [facility] number to call report. PASSR completed; SCHOOL HEALTH ASSISTANT paged to request provider signature in highlighted space. Indigo from [facility] notified via email that home wound vac now cancelled; [facility] has picked up from room and order cancelled. Packet started and provided to community health nurse. Medicare important message explained to patient, patient signed. Copy provided to patient and signature page to OCM for inclusion in pt EMR. Radha Georges - 08/16/2017 10:34 AM EST Office of Care Management/Staff Mechanical Engineer Patient Name: Gregory Hoang : 1945 Patient has been offered a swing bed at [facility]. The patient will be transported by private transportation. No MD to MD report necessary Please call Nursing Report to [phone], ask for supervisor multifocal lens. Info to accompany patient: Narcotic Prescriptions Copies of Medication Administration Records and IV sheets for past 10 days. Plan: Staff Mechanical Engineer will be available to the patient and Management Supervisor-RN and/or Family Support Worker for further assistance. Patient will be discharged to: [facility] [address] [place] [address] [id number] Radha Powers, Staff Mechanical Engineer Mira Black, VAMSI - 08/15/2017 10:05 PM EST [address] Flores to ask if he wanted to hold metoprolol dose. BP 95/58. OK to hold this dose Courtney Brito - 08/15/2017 3:26 PM EST Office of Care Management(OCM)/Staff Mechanical Engineer(RS)/ D/C Planning re : Patient is medically ready for d/c today. RS has been in contact with [facility] to see if they could offer a bed. [facility] is still reviewing the case and need their MD to review chart prior to accepting or declining. OCM team needs to check in with [place] tomorrow to check on status. 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 Vac in place. Rehab referrals ongoing. Can ambulate in hallway. Change VAC at bedside today. Naty Colindres RN - 08/14/2017 1:33 PM EST Patient Name: Gregory Hoang Patient Age: 72 y.o. Birthdate: 1945 Admit date: 08/06/2017 Attending Physician: Yonathan Smith MD We want him to go to a place for intensive therapy and not at a group home where he will be just sitting there and not getting any therapy. . Contacted by direct care RN, who said that patient and would like information about patient's referral to: [facility] PHONE: [phone] FAX: [phone] CM spoke with RS who said that [...] would be accepted to acute rehab at [facility] as Dr. Smith had recommended . [...] rehab. Await recommendations from PT. Covering pager #[phone]. 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 General Maintenance Engineer Kaitlin Saha, RN Pager #[phone] Payam Rosales - 08/13/2017 2:37 PM EST Business Technology Professor Encounter Note Patient Name: Gregory Hoang : [id number] MR#: [id number] Admit Date: 08/06/2017 1:41 PM Hospital Day 7 days Narrative: Visited to introduce and assess acceptance of Business Technology Professor services. Pt was awake, alert, oriented and in chair and family was there. Assessment:Patient coping positively with stresses of illness/hospitalization at this time. Pt says that he is hoping to get better and his family was there. Pt says that he has family care and supportand taking one day at time. Intervention and Outcome: Provided emotional support and encouraging presence. Business Technology Professor services accepted.Conversation to build trusting relationship.Provided pastoral presence.Provided spiritual guidance. Follow-up: yes Time in Direct Care:10 Mins Payam Malin 08/13/2017 Viry Weir MD - 08/13/2017 7:59 AM EST Vascular Surgery Progress Note ID: Gregory Hoang is a 72 y.o. 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 A letter describing our affiliations was reviewed with them and theywere educated about their right to choose where referrals are placed. Patient requests referral to [facility]. PHONE: [phone] FAX: [phone]. And Home NPWT (Negative Pressure Wound Therapy) aka wound vac device made available to pt. Serial # confirmed. Reviewed [facility] Proof of Delivery/Assignment of Benefits Statement(POD/AOB) Form w patient or authorized agent signing on behalf of patient. Copy of POD/AOB provided to pt and other copy faxed to [employer] @ fax# [phone] Expected date of discharge: 08/12/2017. 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 Address: [address] [place] [address] [place] [address] (home) Mobile: Telephone Information: Referring Provider: No [...] SETUP performed by Manny Mcknight MD at [facility] MAIN OR ??? PRO CABG, ARTERIAL, SINGLE N/A 07/07/2017 @CABG, USING ARTERIAL GRAFT;SINGLE ARTERIAL GRAFT (WRVU 33.75) performed by Yuan Retana MD at [facility] MAIN OR ??? PRO CABG, ARTERY-VEIN, TWO N/A 07/07/2017 @CABG, TWO VENOUS GRAFTS & ARTERIAL GRAFT (WRVU 7.93) performed by Yuan Retana MD at [facility] MAIN OR ??? PRO COLONOSCOPY, REMV LESN, SNARE 01/16/2014 COLONOSCOPY, POLYPECTOMY, REMOVAL LESION BY SNARE performed by Nohemi Jaimes MD at [facility] ENDOSCOPY ??? PRO ENDOSCOPY W/VIDEO-ASST VEIN HARVEST, CABG Right 07/07/2017 ENDOSCOPIC HARVEST VEIN(S) FOR CABG (WRVU 0.31) performed by Yuan Retana MD at [facility] MAIN OR ??? 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 Heparin gtt continues to run. Pt [...] of : 1945 AGE 72 y.o. Address: [address] [place] [address] [place] [address] (home) Mobile: Telephone Information: Referring Provider: No [...] SETUP performed by Manny Mcknight MD at [facility] MAIN OR ??? PRO CABG, ARTERIAL, SINGLE N/A 07/07/2017 @CABG, USING ARTERIAL GRAFT;SINGLE ARTERIAL GRAFT (WRVU 33.75) performed by Yuan Retana MD at [facility] MAIN OR ??? PRO CABG, ARTERY-VEIN, TWO N/A 07/07/2017 @CABG, TWO VENOUS GRAFTS & ARTERIAL GRAFT (WRVU 7.93) performed by Yuan Retana MD at [facility] OR ??? PRO COLONOSCOPY, REMV LESN, SNARE 01/16/2014 COLONOSCOPY, POLYPECTOMY, REMOVAL LESION BY SNARE performed by Nohemi Jaimes MD at [facility] ENDOSCOPY ??? PRO ENDOSCOPY W/VIDEO-ASST VEIN HARVEST, CABG Right 07/07/2017 ENDOSCOPIC HARVEST VEIN(S) FOR CABG (WRVU 0.31) performed by Yuan Retana MD at [facility] MAIN OR ??? PRO THYROIDECTOMY 03/28/2013 THYROIDECTOMY, TOTAL OR COMPLETE performed by Manny Mcknight MD at [facility] MA[facility] OR Date/Procedure Meds given/comments No [...] mouth 2 times daily (with meals). 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 Unsuccessful draw attempt, another radio television technical director will come [facility] to collect blood for PTT test. 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 Vascular resident office professionals and will forward result to the team prior to rounds. 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 Patient [...] SETUP performed by Manny Mcknight MD at [facility] MAIN OR ??? PRO CABG, ARTERIAL, SINGLE N/A 07/07/2017 @CABG, USING ARTERIAL GRAFT;SINGLE ARTERIAL GRAFT (WRVU 33.75) performed by Yuan Retana MD at [facility] MAIN OR ??? PRO CABG, ARTERY-VEIN, TWO N/A 07/07/2017 @CABG, TWO VENOUS GRAFTS & ARTERIAL GRAFT (WRVU 7.93) performed by Yuan Retana MD at [facility] MAIN OR ??? PRO COLONOSCOPY, REMV LESN, SNARE 01/16/2014 COLONOSCOPY, POLYPECTOMY, REMOVAL LESION BY SNARE performed by Nohemi Jaimes MD at [facility] ENDOSCOPY ??? PRO ENDOSCOPY W/VIDEO-ASST VEIN HARVEST, CABG Right 07/07/2017 ENDOSCOPIC HARVEST VEIN(S) FOR CABG (WRVU 0.31) performed by Yuan Retana MD at [facility] MAIN OR ??? PRO THYROIDECTOMY 03/28/2013 THYROIDECTOMY, TOTAL OR COMPLETE performed by Manny Mcknight MD at [facility] MAIN OR Functional Status/Social Hx: Quit [...] left blue toes with CTA showing R NUTRITION INTERN pseudoaneurysm (now thrombosed) and occluded ATs bilaterally. [...] 2.5x80 5. Completion RLE angiogram 6. L NUTRITION INTERN angiogram 7. 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 - L NUTRITION INTERN angriogram demonstrated: High femoral bifurcation over the proximal half of the femoral head. L NUTRITION INTERN access in the distal L NUTRITION INTERN. - Closure device: Mynx Technical Procedure: The [...] for a 45cm 5F Destination. V18 and Cummings and QuickCross catheters were used to select [...] 5F. A stationed picture of the L NUTRITION INTERN was performed as the patient was noted to have a very high bifurcation. Access appeared in the distal R NUTRITION INTERN. Closure and sheath removal was performed with [...] Bedrest Continue antibiotics Associated attestation - Trinidad Washignton MD - 08/10/2017 1:31 PM EST Attending Attestation I was the attending physician supervising the resident/fellow in the above care and I was present with the resident/fellow for the entire procedure. I was present during the intraservice time as documented by the sedation RN. documented in this encounter Nursing Notes Eleno Gillespie RN - 08/11/2017 2:51 PM EST 1440 report called to [facility] [place] nurse Tessa AGUSTIN documented in this encounter Miscellaneous Notes Plan of Care - Dory Truong RN - 08/16/2017 10:51 AM EST Problem: Patient Care Overview Goal: Plan of Care Review Outcome: Outcome (s) achieved Date Met: 08/16/17 08/14/17 1939 08/16/17 0431 Coping/Psychosocial Plan Of Care Reviewed With -- patient Plan of Care Review Progress improving -- Discussed discharge instructions with pt and pt's spouse. Discharge to [facility]. Goal: Individualization & Mutuality Outcome: Outcome [...] sit/sit to supine -- Bed Mobility Goal, [place] Level independent -- Bed Mobility Goal, Date [...] days -- Transfer Training Goal, Activity Type ptv-ij-fieqs/shlno-xt-vqc -- Transfer Train Goal, [place] Level conditional independence -- Transfer Train Goal, [...] call cabello within reach, Hourly rounding by RN/PIERCING ARTIST. Bed alarm / Chair alarm. Patient-specific fall [...] Smith MD - 08/15/2017 6:28 PM EST [facility] Operative Note Patient Name: Gregory Hoang : [id number] MR#: [id number] Case Date: 08/09/2017 Surgeon: Surgeon(s) and Role: [...] 2.5x80 5. Completion RLE angiogram 6. L NUTRITION INTERN angiogram 7. Mynx closure Precautions/Restrictions: fall, sternal [...] other (see comments) (or swing bed) Pager: [phone] BASSAM ELIAS, PT 08/14/2017 Inpatient Physical Therapy [...] to Achieve by discharge Gait Training Goal, [place] Level conditional independence;set up required Gait Training [...] these facilities over the weekend except for [facility]. CM spoke with [facility] KANWAL Sandhu RN who said that they do not anticipate any beds over the weekend. Reviewed with patient/ that they need to be aware that patient will need to take the first bed offered at the facilities that they make referrals to. Their choices are: 1- [facility] PHONE: [phone] FAX: [phone] 2- [facility] ([facility]) [address] [place] [address] 3- [facility])([facility]) [address] [place] [address] I have discussed Medicare/Private Insurance [...] RS/CM on Wednesday to follow-up. Covering pager #[phone] for today. Plan of Care - Henrique [...] with additional findings of pseudoaneurysm on R NUTRITION INTERN and bilateral anterior tibial artery occlusions. Was [...] an outpatient once discharged. Have patient call [phone] to set up an appointment. Follow-up: Dermatology will sign-off for now. Please do not hesitate to contact us if you have any questions orconcerns. Impression and Recommendations discussed with primary team on 08/13/2017. Karo Henderson MD Resident in Dermatology Section of Dermatology, Department of Surgery [facility] Pager [phone] Patient seen and evaluated with staff Service Observer Chief: Halima Cordero MD Section of Dermatology [facility] Level of Resident Supervision: Direct Supervision [...] 2.5x80 5. Completion RLE angiogram 6. L NUTRITION INTERN angiogram 7. Mynx closure Active Non-Hospital Problems [...] home with home health ([facility] PT&OT) Pager: [phone] YASIR TELLO OT 08/12/2017 Occupational Therapy Rehabilitation [...] 2.5x80 5. Completion RLE angiogram 6. L NUTRITION INTERN angiogram 7. Mynx closure Past Medical History: [...] with 24/7 assistance and maximal services) Pager: [phone] NICHOLAS MORA, JESSIE 08/12/2017 Physical Therapy Rehabilitation [...] sit/sit to supine -- Bed Mobility Goal, [place] Level independent -- Bed Mobility Goal, Outcome Achieved -- goal ongoing Goal: Gait Training Goal Stand Alone Therapy Goal Outcome: Ongoing (Interventions Implemented as Appropriate) 08/11/17 1310 08/12/17 1510 Gait Training Goal Gait Training Goal, Date Established 08/11/17 -- Gait Training Goal, Time to Achieve 5 - 7 days -- Gait Training Goal, [place] Level conditional independence -- Gait Training Goal, [...] days -- Transfer Training Goal, Activity Type bmy-mf-uuzog/sjljn-tp-sni -- Transfer Train Goal, [place] Level conditional independence -- Transfer Training Goal, [...] Smith MD - 08/11/2017 2:52 PM EST [facility] Operative Note Patient Name: Gregory Hoang : [id number] MR#: [id number] Case Date: 08/11/2017 Surgeon: Surgeon(s) and Role: [...] 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 Completion RLE angiogram 6. L NUTRITION INTERN angiogram 7. Mynx closure He is very [...] Anticipated Discharge Disposition: inpatient rehabilitation facility Pager: [phone] LAWRENCE GONZALEZ, PT 08/11/2017 Physical Therapy Rehabilitation [...] to sit/sit to supine Bed Mobility Goal, [place] Level independent Goal: Gait Training Goal Stand Alone Therapy Goal Outcome: Ongoing (Interventions Implemented as Appropriate) 08/11/17 1310 Gait Training Goal Gait Training Goal, Date Established 08/11/17 Gait Training Goal, Time to Achieve 5 - 7 days Gait Training Goal, [place] Level conditional independence Gait Training Goal, Assist [...] 7 days Transfer Training Goal, Activity Type zxr-kg-csmyg/lehfd-ry-plu Transfer Train Goal, [place] Level conditional independence Plan of Care - [...] call cabello within reach, Hourly rounding by RN/PIERCING ARTIST. Bed alarm / Chair alarm. ? Patient-specific [...] 04/05/2013 Hospitalizations Within the Past 30 Days: [facility] 07/20/2017 Anticipated Length Of Stay (If known): Expected Length of Hospitalization: 5-7 days2-3 days Current Decision-Making Capacity: Alert and oriented x 4 Advance Care Planning: on file Kisha Hoang [facility] [phone] Current Coping/Education/Information Needs: pt and spouse state [...] Health/Prescription Coverage: Primary Insurance: MEDICARE Secondary Insurance: [employer] [place] Prescription Coverage: See above Preferred Pharmacy: [id number] Other: N/A Primary Care Provider: Lovely Vicente MD [phone] Patient/Caregiver Goals of Treatment: Patient plans to return home when medically ready Potential Needs for Transition of Care: Rehab/SNF: N/A Home Health: [facility] DME: pt has a cane and walker [...] of care planning. Kaitlin Saha RN Pager: [phone] Plan of Care - Melba Jaramillo RN [...] Overview Goal: Plan of Care Review 08/08/17 1494 Coping/Psychosocial Plan Of Care Reviewed With patient [...] call cabello within reach, Hourly rounding by RN/PIERCING ARTIST. Bed alarm / Chair alarm. Patient-specific fall [...] at bedside and MD TEAM Carrying pager [phone] contacted (via Radio page) and notified of [...] Cardiology Liz Poole PA [facility] er Cardiology Dept [place], [place] 0[address] (Wo rk) 03/26/2022 Office Visit Cardiology Vitaliy Nobles MD [facility] CARDIOLOGY [place], [place] [address] (Wo rk) documented as of [...] TYPE AND SCREEN Routine 08/09/2017 1:10 AM ([facility]/SHANDA) EST BASIC METABOLIC PANEL Routine 08/09/2017 1:10 [...] Signature POC Glucose 160 65 - 199 [facility] mg/dL [facility] Comment: Supplemental ranges: <140 mg/dL before meals <180 mg/dL all other times of the day Specimen Anatomical Collection Method Collection Time Receive d Time (Source) Location / / Volume Laterality Blood specimen 08/16/2017 7:28 AM 018 7:28 (specimen) EST AM EST Yonathan Smith MD POINT OF CARE TEST ORDERABLE S Performing Organization Address City/State/[place] [address] (ABNORMAL) Differential, Automated (08/16/2017 5:08 AM EST) Patholo gist Method Time Signature Neutrophils % 73.9 % [facility] Neutr Abs (ANC) 5.37 1.70 - [facility] 6.10 [facility] x10(3)/[facility] LABORATORY Lymphocytes % 10.1 % [facility] Lymphocytes Abs 0.7 (L) 0.9 - 3.2 [facility] x10(3)/[facility] LABORATORY Monocytes % 10.1 % [facility] Monocyte Abs 0.7 0.3 - 0.9 [facility] x10(3)/[facility] LABORATORY Eosinophils % 5.1 % [facility] Eosinophils Abs 0.4 0.0 - 0.4 [facility] x10(3)/[facility] LABORATORY Basophils % 0.4 % [facility] Basophils Abs 0.0 0.0 - 0.1 [facility] x10(3)/[facility] LABORATORY Immature Gran % 0.40 % [facility] Comment: Immature granulocytes(IG's)percentage an d absolute count will include metamyelocytes, myelocytes, and promyelo cytes. Blood smears from CBCs yielding IG's will be scanned manually for concor dance. If this scan disagrees with the automated IG or if promyelocytes are not ed, a manual differential will be performed. Melisa Gran Abs 0.03 0.00 - 0.04 x10(3)/[facility] LABORATORY Specimen Anatomical Collection Method Collection Time Receive d Time (Source) Location / / Volume Laterality Blood specimen 08/16/2017 5:08 AM 018 5:20 (specimen) EST AM EST Resulting Agency Comment Spec In Lab Yonathan Smith MD HEMATOLOGY ORDERABLES Performing Organization Address City/State/[place] [address] (ABNORMAL) Hemogram (08/16/2017 5:08 AM EST) Analysis Performed At Patho logist Time Signature WBC 7.3 4.0 - 9.5 [facility] x10(3)/[facility] LABORATORY RBC 3.36 (L) 4.58 - [facility] 5.54 [facility] x10(6)/[facility] LABORATORY Hemoglobin 9.7 (L) 13.7 - [facility] 16.[facility] gm/dL [facility] LABORATORY Hematocrit 30.3 (L) 40.5 - [facility] 48[facility] % [facility] LABORATORY MCV 90.2 82.9 - [facility] 93.1 [facility] LABORATORY MCH 28.9 27.5 - [place] 32.1 pg [facility] LABORATORY MCHC 32.0 32.0 - [facility] 35.7 gm/dL [facility] LABORATORY Platelets 282 145 - 357 [facility] x10(3)/[facility] LABORATORY RDWSD 53.9 (H) 36.0 - [facility] 45.0 [facility] LABORATORY RDWCV 16.5 (H) 11.4 - [facility] 13.8 % [facility] LABORATORY MPV 9.0 7.6 - 12.9 [facility] LABORATORY nRBC % Auto 0.0 % [facility] LABORATORY nRBC Abs Auto 0.000 0.000 - [facility] 0.000 [facility] x10(3)/[facility] LABORATORY Specimen Anatomical Collection Method Collection Time Receive d Time (Source) Location / / Volume Laterality Blood specimen 08/16/2017 5:08 AM 018 5:20 (specimen) EST AM EST Resulting Agency Comment Spec In Lab Yonathan Smith MD HEMATOLOGY ORDERABLES Performing Organization Address City/State/[place] [address] (ABNORMAL) Basic Metabolic Panel (non-fasting) (08/16/2017 5:08 AM EST) athologist Signature Glucose Lvl 141 65 - 199 [facility] mg/dL [facility] LABORATORY Comment: Diabetes: >=200 mg/dL plus symp toms BUN 29 (H) 10 - 20 mg/dL [facility] LABORATORY Creatinine 1.25 0.80 - 1.50 mg/dL [facility] LABORATORY Sodium 140 135 - 145 mmol/L [facility] LABORATORY Potassium 4.5 3.5 - 5.0 mmol/L [facility] LABORATORY Comment: Please note: ??Patients with WBC >100,00 0 may have falsely elevated Potassium levels. ??For accurate Potassium quantif ication in these patients send serum separator tube (gold top) for subsequent determinations. ??Contact the Clinical Chemistry Laboratory if there are any qu estions. Chloride 99 98 - 107 mmol/L [facility] LABORATORY CO2 28 22 - 31 mmol/L [facility] LABORATORY Anion Gap 13 5 - 15 mmol/L [facility] LABORATORY Calcium 8.7 8.5 - 10.5 mg/dL [facility] LABORATORY Estimated GFR 57 (L) >=60 [facility] LABORATORY Comment: The reported eGFR should be multiplied b y 1.2 for patients. The MDRD is not an appropriate measure o f renal function for patients with body mass extremes or in patients with acute kidney failure. http://[employer]/DHnkdep http://[employer]/DHMCnkf Specimen Anatomical Collection Method Collection Time Receive d Time (Source) Location / / Volume Laterality Blood specimen 08/16/2017 5:08 AM 018 5:20 (specimen) EST AM EST Resulting Agency Comment Spec In Lab Yonathan Smith MD CHEMISTRY ORDERABLES Performing Organization Address City/State/[place] [address] (ABNORMAL) Prothrombin Time (08/16/2017 5:08 AM EST) athologist Signature PT 25.2 (H) 11.8 - 14.0 [facility] LABORATORY INR 2.3 (H) 0.9 - 1.1 [facility] LABORATORY Comment: An [...] Address City/State/ZIP Code Phon e Number [address] POCT Glucose (08/16/2017 4:09 AM EST) athologist Signature POC Glucose 147 65 - 199 [place] mg/dL [facility] LABORATORY Comment: Supplemental ranges: <140 mg/dL before meals <180 mg/dL all other times of the day Specimen Anatomical Collection Method Collection Time Receive d Time (Source) Location / / Volume Laterality Blood specimen 08/16/2017 4:09 AM 018 4:09 (specimen) EST AM EST Yonathan Smith MD POINT OF CARE TEST ORDERABLE S Performing Organization Address City/[facility]/ZIP Code Phon e Number [address] POCT Glucose (08/15/2017 11:56 PM EST) athologist Signature POC Glucose 176 65 - 199 [facility] RYAN mg/dL [facility] LABORATORY Comment: Supplemental ranges: <140 mg/dL before meals <180 mg/dL all other times of the day Specimen Anatomical Collection Method Collection Time Receive d Time (Source) Location / / Volume Laterality Blood specimen 08/15/2017 11:56 8 (specimen) PM EST 11:56 PM EST oYnathan Smith MD POINT OF CARE TEST ORDERABLE S Performing Organization Address City/State/[place] [address] POCT Glucose (08/15/2017 8:05 PM EST) athologist Signature POC Glucose 136 65 - 199 [facility] RYAN mg/dL [facility] LABORATORY Comment: Supplemental ranges: <140 mg/dL before meals <180 mg/dL all other times of the day Specimen Anatomical Collection Method Collection Time Receive d Time (Source) Location / / Volume Laterality Blood specimen 08/15/2017 8:05 PM 018 8:05 (specimen) EST PM EST Yonathan Smith MD POINT OF CARE TEST ORDERABLE S Performing Organization Address City/State/[place] [address] (ABNORMAL) POCT Glucose (08/15/2017 4:50 PM EST) athologist Signature POC Glucose 232 (H) 65 - 199 [place] mg/dL [facility] LABORATORY Comment: Supplemental ranges: <140 mg/dL before meals <180 mg/dL all other times of the day Specimen Anatomical Collection Method Collection Time Receive d Time (Source) Location / / Volume Laterality Blood specimen 08/15/2017 4:50 PM 018 4:50 (specimen) EST PM EST Yonathan Smith MD POINT OF CARE TEST ORDERABLE S Performing Organization Address City/State/[place] [address] POCT Glucose (08/15/2017 12:04 PM EST) athologist Signature POC Glucose 135 65 - 199 [place] mg/dL [facility] LABORATORY Comment: Supplemental ranges: <140 mg/dL before meals <180 mg/dL all other times of the day Specimen Anatomical Collection Method Collection Time Receive d Time (Source) Location / / Volume Laterality Blood specimen 08/15/2017 12:04 8 (specimen) PM EST 12:04 PM EST Yonathan Smith MD POINT OF CARE TEST ORDERABLE S Performing Organization Address City/State/[place] [address] POCT Glucose (08/15/2017 7:36 AM EST) athologist Signature POC Glucose 124 65 - 199 [facility] mg/dL [facility] LABORATORY Comment: Supplemental ranges: <140 mg/dL before meals <180 mg/dL all other times of the day Specimen Anatomical Collection Method Collection Time Receive d Time (Source) Location / / Volume Laterality Blood specimen 08/15/2017 7:36 AM 018 7:36 (specimen) EST AM EST Yonathan Smith MD POINT OF CARE TEST ORDERABLE S Performing Organization Address City/State/[place] [address] (ABNORMAL) Differential, Automated (08/15/2017 6:22 AM EST) [facility] Method Time Signature Neutrophils % 76.1 % [facility] LABORATORY Neutr Abs (ANC) 6.62 (H) 1.70 - [facility] 6.10 [facility] x10(3)/[facility] L LABORATORY Lymphocytes % 9.3 % [facility] LABORATORY Lymphocytes Abs 0.8 (L) 0.9 - 3.2 [facility] x10(3)/[facility] LABORATORY Monocytes % 9.4 % [facility] LABORATORY Monocyte Abs 0.8 0.3 - 0.9 [facility] x10(3)/[facility] LABORATORY Eosinophils % 4.0 % [facility] LABORATORY Eosinophils Abs 0.4 0.0 - 0.4 [facility] x10(3)/[facility] LABORATORY Basophils % 0.6 % [facility] LABORATORY Basophils Abs 0.0 0.0 - 0.1 [facility] x10(3)/[facility] LABORATORY Immature Gran % 0.60 % [facility] LABORATORY Comment: [...] Organization Address City/State/[place] [address] (ABNORMAL) Hemogram (08/15/2017 6:22 AM EST) Analysis Performed At Patho logist Time Signature WBC 8.7 4.0 - 9.5 [facility](3[facility] LABORATORY RBC 3.21 (L) 4.58 - [place] 5.54 [facility] x10(6)/[facility] LABORATORY Hemoglobin 9.1 (L) 13.7 - [facility] 16.5 gm/dL [facility] LABORATORY Hematocrit 29.0 (L) 40.5 - [facility] 48.5 % [facility] LABORATORY MCV 90.3 82.9 - [facility] 93.1 [facility] LABORATORY MCH 28.3 27.5 - [place] 32.1 pg [facility] LABORATORY MCHC 31.4 (L) 32.0 - [place] 35.7 gm/dL [facility] LABORATORY Platelets 254 145 - 357 [facility] x10(3)/[facility] LABORATORY RDWSD 53.9 (H) 36.0 - [place] 45.0 [facility] LABORATORY RDWCV 16.3 (H) 11.4 - [facility] RYAN 13.8 % [facility] LABORATORY MPV 8.8 7.6 - 12.9 [facility] LABORATORY nRBC % Auto 0.0 % [facility] LABORATORY nRBC Abs Auto 0.000 0.000 - [facility] RYAN 0.000 [facility] x10(3)/[facility] LABORATORY Specimen Anatomical Collection Method Collection Time Receive d Time (Source) Location / / Volume Laterality Blood specimen 08/15/2017 6:22 AM 018 6:33 (specimen) EST AM EST Resulting Agency Comment Spec In Lab Yonathan Smith MD HEMATOLOGY ORDERABLES Performing Organization Address City/State/ZIP Code Phon e Number [place] [id number] (ABNORMAL) Basic Metabolic Panel (non-fasting) (08/15/2017 6:22 AM EST) P athologist Signature Glucose Lvl 118 65 - 199 [facility] mg/dL [facility] LABORATORY Comment: Diabetes: >=200 mg/dL plus symp toms BUN 27 (H) 10 - 20 mg/dL [facility] LABORATORY Creatinine 1.12 0.80 - 1.50 mg/dL [facility] LABORATORY Sodium 138 135 - 145 mmol/L [facility] LABORATORY Potassium 4.6 3.5 - 5.0 mmol/L [facility] LABORATORY Comment: Please note: ??Patients with WBC >100,00 0 may have falsely elevated Potassium levels. ??For accurate Potassium quantif ication in these patients send serum separator tube (gold top) for subsequent determinations. ??Contact the Clinical Chemistry Laboratory if there are any qu estions. Chloride 98 98 - 107 mmol/L [facility] LABORATORY CO2 29 22 - 31 mmol/L [facility] LABORATORY Anion Gap 11 5 - 15 mmol/L [facility] LABORATORY Calcium 8.8 8.5 - 10.5 mg/dL [facility] LABORATORY Estimated GFR >60 >=60 [facility] LABORATORY Comment: The reported eGFR should be multiplied b y 1.2 for patients. The MDRD is not an appropriate measure o f renal function for patients with body mass extremes or in patients with acute kidney failure. http://[employer]/DHnkdep http://[employer]/DHMCnkf Specimen Anatomical Collection Method Collection Time Receive d Time (Source) Location / / Volume Laterality Blood specimen 08/15/2017 6:22 AM 018 6:33 (specimen) EST AM EST Resulting Agency Comment Spec In Lab Yoanthan Smith MD CHEMISTRY ORDERABLES Performing Organization Address City/State/[place] [address] (ABNORMAL) Prothrombin Time (08/15/2017 6:22 AM EST) athologist Signature PT 21.9 (H) 11.8 - 14.0 [facility] LABORATORY INR 1.9 (H) 0.9 - 1.1 [facility] LABORATORY Comment: An [...] Address City/State/ZIP Code Phon e Number [address] POCT Glucose (08/15/2017 4:33 AM EST) athologist Signature POC Glucose 164 65 - 199 [facility] LABORATORY Comment: Supplemental ranges: <140 mg/dL before meals <180 mg/dL all other times of the day Specimen Anatomical Collection Method Collection Time Receive d Time (Source) Location / / Volume Laterality Blood specimen 08/15/2017 4:33 AM 018 4:33 (specimen) EST AM EST Yonathan Smith MD POINT OF CARE TEST ORDERABLE S Performing Organization Address City/[facility]/ZIP Code Phon e Number [address] POCT Glucose (08/15/2017 12:12 AM EST) athologist Signature POC Glucose 89 65 - 199 [facility]/dL [facility] LABORATORY Comment: Supplemental ranges: <140 mg/dL before meals <180 mg/dL all other times of the day Specimen Anatomical Collection Method Collection Time Receive d Time (Source) Location / / Volume Laterality Blood specimen 08/15/2017 12:12 8 (specimen) AM EST 12:12 AM EST Yonathan Smith MD POINT OF CARE TEST ORDERABLE S Performing Organization Address City/State/[place] [address] (ABNORMAL) POCT Glucose (08/14/2017 8:07 PM EST) athologist Signature POC Glucose 204 (H) 65 - 199 [facility] RYAN mg/dL [facility] LABORATORY Comment: Supplemental ranges: <140 mg/dL before meals <180 mg/dL all other times of the day Specimen Anatomical Collection Method Collection Time Receive d Time (Source) Location / / Volume Laterality Blood specimen 08/14/2017 8:07 PM 018 8:07 (specimen) EST PM EST Yonathan Smith MD POINT OF CARE TEST ORDERABLE S Performing Organization Address City/State/ZIP Code Phon e Number [address] POCT Glucose (08/14/2017 5:11 PM EST) athologist Signature POC Glucose 174 65 - 199 [facility] mg/dL [facility] LABORATORY Comment: Supplemental ranges: <140 mg/dL before meals <180 mg/dL all other times of the day Specimen Anatomical Collection Method Collection Time Receive d Time (Source) Location / / Volume Laterality Blood specimen 08/14/2017 5:11 PM 018 5:11 (specimen) EST PM EST Yonathan Smith MD POINT OF CARE TEST ORDERABLE S Performing Organization Address City/State/[place] [address] POCT Glucose (08/14/2017 12:10 PM EST) athologist Signature POC Glucose 141 65 - 199 [facility]/dL [facility] LABORATORY Comment: Supplemental ranges: <140 mg/dL before meals <180 mg/dL all other times of the day Specimen Anatomical Collection Method Collection Time Receive d Time (Source) Location / / Volume Laterality Blood specimen 08/14/2017 12:10 8 (specimen) PM EST 12:10 PM EST Yonathan Smith MD POINT OF CARE TEST ORDERABLE S Performing Organization Address City/State/[place] [address] POCT Glucose (08/14/2017 8:07 AM EST) P athologist Signature POC Glucose 158 65 - 199 [facility] mg/dL [facility] LABORATORY Comment: Supplemental ranges: <140 mg/dL before meals <180 mg/dL all other times of the day Specimen Anatomical Collection Method Collection Time Receive d Time (Source) Location / / Volume Laterality Blood specimen 08/14/2017 8:07 AM 018 8:07 (specimen) EST AM EST Yonathan Smith MD POINT OF CARE TEST ORDERABLE S Performing Organization Address City/State/[place] [address] (ABNORMAL) Differential, Automated (08/14/2017 4:52 AM EST) Patholo gist Method Time Signature Neutrophils % 78.6 % [facility] LABORATORY Neutr Abs (ANC) 7.70 (H) 1.70 - [facility] 6.10 [facility] x10(3)/[facility] L LABORATORY Lymphocytes % 7.8 % [facility] LABORATORY Lymphocytes Abs 0.8 (L) 0.9 - 3.2 [facility] x10(3)/[facility] LABORATORY Monocytes % 8.8 % [facility] LABORATORY Monocyte Abs 0.9 0.3 - 0.9 [facility] x10(3)/[facility] LABORATORY Eosinophils % 4.0 % [facility] LABORATORY Eosinophils Abs 0.4 0.0 - 0.4 [facility] x10(3)/[facility] LABORATORY Basophils % 0.5 % [facility] LABORATORY Basophils Abs 0.0 0.0 - 0.1 [facility] x10(3)/[facility] LABORATORY Immature Gran % 0.30 % [facility] LABORATORY Comment: Immature granulocytes(IG's)percentage an d absolute count will include metamyelocytes, myelocytes, and promyelo cytes. Blood smears from CBCs yielding IG's will be scanned manually for concor dance. If this scan disagrees with the automated IG or if promyelocytes are not ed, a manual differential will be performed. Melisa Gran Abs 0.03 0.00 - 0.04 x10(3)/[facility] LABORATORY Specimen Anatomical Collection Method Collection Time Receive d Time (Source) Location / / Volume Laterality Blood specimen 08/14/2017 4:52 AM 018 5:08 (specimen) EST AM EST Resulting Agency Comment Spec In Lab Yonathan Smith MD HEMATOLOGY ORDERABLES Performing Organization Address City/State/[place] [address] (ABNORMAL) Hemogram (08/14/2017 4:52 AM EST) Analysis Performed At Patho logist Time Signature WBC 9.8 (H) 4.0 - 9.5 [facility] x10(3)/[facility] LABORATORY RBC 3.32 (L) 4.58 - [facility] 5.54 [facility] x10(6)/[facility] LABORATORY Hemoglobin 9.5 (L) 13.7 - [facility] 16.5 gm/dL [facility] LABORATORY Hematocrit 30.3 (L) 40.5 - [facility] 48.5 % [facility] LABORATORY MCV 91.3 82.9 - [facility] 93.1 [facility] LABORATORY MCH 28.6 27.5 - [facility] 32.1 pg [facility] LABORATORY MCHC 31.4 (L) 32.0 - [facility] 35.7 gm/dL [facility] LABORATORY Platelets 263 145 - 357 [facility] x10(3)/[facility] LABORATORY RDWSD 54.8 (H) 36.0 - [facility] RYAN 45.0 [facility] LABORATORY RDWCV 16.5 (H) 11.4 - [facility] 13.8 % [facility] LABORATORY MPV 9.1 7.6 - 12.9 [facility] LABORATORY nRBC % Auto 0.0 % [facility] LABORATORY nRBC Abs Auto 0.000 0.000 - [facility] 0.000 [facility] x10(3)/[facility] LABORATORY Specimen Anatomical Collection Method Collection Time Receive d Time (Source) Location / / Volume Laterality Blood specimen 08/14/2017 4:52 AM 018 5:08 (specimen) EST AM EST Resulting Agency Comment Spec In Lab Yonathan Smith MD HEMATOLOGY ORDERABLES Performing Organization Address City/[facility]/[place] [address] (ABNORMAL) Prothrombin Time (08/14/2017 4:52 AM EST) athologist Signature PT 18.8 (H) 11.8 - 14.0 [facility] LABORATORY INR 1.6 (H) 0.9 - 1.1 [facility] LABORATORY Comment: An [...] Organization Address City/State/[place] [address] (ABNORMAL) Basic Metabolic Panel (non-fasting) (08/14/2017 4:52 AM EST) athologist Signature Glucose Lvl 135 65 - 199 [facility] mg/dL [facility] LABORATORY Comment: Diabetes: >=200 mg/dL plus symp toms BUN 25 (H) 10 - 20 mg/dL [facility] LABORATORY Creatinine 1.36 0.80 - 1.50 mg/dL [facility] LABORATORY Sodium 141 135 - 145 mmol/L [facility] LABORATORY Potassium 4.8 3.5 - 5.0 mmol/L [facility] LABORATORY Comment: Please note: ??Patients with [...] Anion Gap 13 5 - 15 mmol/L [facility] LABORATORY Calcium 8.5 8.5 - 10.5 mg/dL [facility] LABORATORY Estimated GFR 52 (L) >=60 [facility] LABORATORY Comment: The reported eGFR should be multiplied b y 1.2 for patients. The MDRD is not an appropriate measure o f renal function for patients with body mass extremes or in patients with acute kidney failure. http://[employer]/DHnkdep http://[employer]/DHMCnkf Specimen Anatomical Collection Method Collection Time Receive d Time (Source) Location / / Volume Laterality Blood specimen 08/14/2017 4:52 AM 018 5:08 (specimen) EST AM EST Resulting Agency Comment Spec In Lab Yonathan Smith MD CHEMISTRY ORDERABLES Performing Organization Address City/[facility]/ZIP Code Phon e Number [address] POCT Glucose (08/14/2017 3:56 AM EST) athologist Signature POC Glucose 135 65 - 199 [facility] LABORATORY Comment: Supplemental ranges: <140 mg/dL before meals <180 mg/dL all other times of the day Specimen Anatomical Collection Method Collection Time Receive d Time (Source) Location / / Volume Laterality Blood specimen 08/14/2017 3:56 AM 018 3:56 (specimen) EST AM EST Yonathan Smith MD POINT OF CARE TEST ORDERABLE S Performing Organization Address City/[facility]/ZIP [facility] Phon e Number [address] POCT Glucose (08/13/2017 11:13 PM EST) athologist Signature POC Glucose 118 65 - 199 [facility] LABORATORY Comment: Supplemental ranges: <140 mg/dL before meals <180 mg/dL all other times of the day Specimen Anatomical Collection Method Collection Time Receive d Time (Source) Location / / Volume Laterality Blood specimen 08/13/2017 11:13 8 (specimen) PM EST 11:13 PM EST Yonathan Smith MD POINT OF CARE TEST ORDERABLE S Performing Organization Address City/State/[place] [address] (ABNORMAL) POCT Glucose (08/13/2017 8:08 PM EST) athologist Signature POC Glucose 204 (H) 65 - 199 [facility] mg/dL [facility] LABORATORY Comment: Supplemental ranges: <140 mg/dL before meals <180 mg/dL all other times of the day Specimen Anatomical Collection Method Collection Time Receive d Time (Source) Location / / Volume Laterality Blood specimen 08/13/2017 8:08 PM 018 8:08 (specimen) EST PM EST Yonathan Smith MD POINT OF CARE TEST ORDERABLE S Performing Organization Address City/State/[place] [address] POCT Glucose (08/13/2017 4:02 PM EST) athologist Signature POC Glucose 145 65 - 199 [place] mg/dL [facility] LABORATORY Comment: Supplemental ranges: <140 mg/dL before meals <180 mg/dL all other times of the day Specimen Anatomical Collection Method Collection Time Receive d Time (Source) Location / / Volume Laterality Blood specimen 08/13/2017 4:02 PM 018 4:02 (specimen) EST PM EST Yonathan Smith MD POINT OF CARE TEST ORDERABLE S Performing Organization Address City/State/ZIP Code Phon e [place] [address] POCT Glucose (08/13/2017 11:31 AM EST) athologist Signature POC Glucose 179 65 - 199 BARBARA ZHAORYAN mg/dL [facility] LABORATORY Comment: Supplemental ranges: <140 mg/dL before meals <180 mg/dL all other times of the day Specimen Anatomical Collection Method Collection Time Receive d Time (Source) Location / / Volume Laterality Blood specimen 08/13/2017 11:31 8 (specimen) AM EST 11:31 AM EST Yonathan Smith MD POINT OF CARE TEST ORDERABLE S Performing Organization Address City/State/[place] [address] (ABNORMAL) POCT Glucose (08/13/2017 10:16 AM EST) P athologist Signature POC Glucose 211 (H) 65 - 199 [facility] Comment: Supplemental ranges: <140 mg/dL before meals <180 mg/dL all other times of the day Specimen Anatomical Collection Method Collection Time Receive d Time (Source) Location / / Volume Laterality Blood specimen 08/13/2017 10:16 8 (specimen) AM EST 10:16 AM EST Yonathan Smith MD POINT OF CARE TEST ORDERABLE S Performing Organization Address City/[facility]/[place] [address] JULIAN, legs, multiple levels (08/13/2017 7:42 AM EST) Component Value Ref Test Analysis Performed At Patholo gist Range Method Time Signature VB Text Department: Vascular Surgery Lab VASCUBASE Report Patient: [id number] (GREGORY HOANG) CPT: 63810 ICD10: I99.8 Referring Physician: YONATHAN SMITH ?? Indications: s/p R 1,2,3 toe amps with red left foot, need n ew baseline Diabetes mellitus: yes ICD10 Diagnosis Code: I99.8 Findings: Right ?Pressure (mm Hg) ?? JULIAN ??Waveform ?TBI ?? Brachial Artery ?138 ? Dorsalis Pedis (Ankle) Arter y ?132 ? 0.94 ??[place]- Biphasic ? Posterior Tibial (Ankle) Art anila ??154 ? 1.10 ??[place]-Biphasic ? Fourth Toe ? 67 ? 0.48 [...] Signature POC Glucose 156 65 - 199 [facility] mg/dL [facility] LABORATORY Comment: Supplemental ranges: <140 mg/dL before meals <180 mg/dL all other times of the day Specimen Anatomical Collection Method Collection Time Receive d Time (Source) Location / / Volume Laterality Blood specimen 08/13/2017 7:33 AM 018 7:33 (specimen) EST AM EST Yonathan Smith MD POINT OF CARE TEST ORDERABLE S Performing Organization Address City/State/[place] [address] (ABNORMAL) Differential, Automated (08/13/2017 5:33 AM EST) Patholo gist Method Time Signature Neutrophils % 77.8 % [facility] LABORATORY Neutr Abs (ANC) 7.83 (H) 1.70 - [facility] 6.10 [facility] x10(3)/[facility] L LABORATORY Lymphocytes % 8.4 % [facility] LABORATORY Lymphocytes Abs 0.8 (L) 0.9 - 3.2 [facility] x10(3)/[facility] LABORATORY Monocytes % 8.3 % [facility] LABORATORY Monocyte Abs 0.8 0.3 - 0.9 [facility] x10(3)/[facility] LABORATORY Eosinophils % 4.6 % [facility] LABORATORY Eosinophils Abs 0.5 (H) 0.0 - 0.4 [facility] x10(3)/[facility] LABORATORY Basophils % 0.5 % [facility] LABORATORY Basophils Abs 0.0 0.0 - 0.1 [facility] x10(3)/[facility] LABORATORY Immature Gran % 0.40 % [facility] LABORATORY Comment: Immature granulocytes(IG's)percentage an d absolute count will include metamyelocytes, myelocytes, and promyelo cytes. Blood smears from CBCs yielding IG's will be scanned manually for concor dance. If this scan disagrees with the automated IG or if promyelocytes are not ed, a manual differential will be performed. Melisa Gran Abs 0.04 0.00 - 0.04 x10(3)/[facility] LABORATORY Specimen Anatomical Collection Method Collection Time Receive d Time (Source) Location / / Volume Laterality Blood specimen 08/13/2017 5:33 AM 018 6:04 (specimen) EST AM EST Resulting Agency Comment Spec In Lab Yonathan Smith MD HEMATOLOGY ORDERABLES Performing Organization Address City/State/[place] [address] (ABNORMAL) Hemogram (08/13/2017 5:33 AM EST) Analysis Performed At Patho logist Time Signature WBC 10.1 (H) 4.0 - 9.5 [facility] x10(3)/[facility] LABORATORY RBC 3.21 (L) 4.58 - [facility] 5.54 [facility] x10(6)/[facility] LABORATORY Hemoglobin 9.2 (L) 13.7 - [facility] 16.5 gm/dL [facility] LABORATORY Hematocrit 29.6 (L) 40.5 - [facility] 48.5 % [facility] LABORATORY MCV 92.2 82.9 - [facility] 93.1 [facility] LABORATORY MCH 28.7 27.5 - BARBARA OLIVASCK 32.1 pg [facility] LABORATORY MCHC 31.1 (L) 32.0 - [facility] 35.7 gm/dL [facility] LABORATORY Platelets 263 145 - 357 [facility] x10(3)/[facility] LABORATORY RDWSD 54.8 (H) 36.0 - [facility] 45.0 [facility] LABORATORY RDWCV 16.4 (H) 11.4 - [facility] 13.8 % [facility] LABORATORY MPV 9.2 7.6 - 12.9 [facility] LABORATORY nRBC % Auto 0.0 % [facility] LABORATORY nRBC Abs Auto 0.000 0.000 - [facility] 0.000 [facility] x10(3)/[facility] LABORATORY Specimen Anatomical Collection Method Collection Time Receive d Time (Source) Location / / Volume Laterality Blood specimen 08/13/2017 5:33 AM 018 6:04 (specimen) EST AM EST Resulting Agency Comment Spec In Lab Yonathan Smith MD HEMATOLOGY ORDERABLES Performing Organization Address City/State/[place] [address] (ABNORMAL) Prothrombin Time (08/13/2017 5:33 AM EST) P athologist Signature PT 17.3 (H) 11.8 - 14.0 [facility] LABORATORY INR 1.4 (H) 0.9 - 1.1 [facility] LABORATORY Comment: An [...] Organization Address City/State/[place] [address] (ABNORMAL) Basic Metabolic Panel (non-fasting) (08/13/2017 5:33 AM EST) athologist Signature Glucose Lvl 126 65 - 199 [facility] mg/dL [facility] LABORATORY Comment: Diabetes: >=200 mg/dL plus symp toms BUN 18 10 - 20 mg/dL [facility] LABORATORY Creatinine 1.16 0.80 - 1.50 mg/dL [facility] LABORATORY Sodium 141 135 - 145 mmol/L [facility] LABORATORY Potassium 4.6 3.5 - 5.0 mmol/L [facility] LABORATORY Comment: Please note: ??Patients with WBC >100,00 0 may have falsely elevated Potassium levels. ??For accurate Potassium quantif ication in these patients send serum separator tube (gold top) for subsequent determinations. ??Contact the Clinical Chemistry Laboratory if there are any qu estions. Chloride 100 98 - 107 mmol/L [facility] LABORATORY CO2 29 22 - 31 mmol/L [facility] LABORATORY Anion Gap 12 5 - 15 mmol/L [facility] LABORATORY Calcium 7.9 (L) 8.5 - 10.5 mg/dL [facility] LABORATORY Estimated GFR >60 >=60 [facility] LABORATORY Comment: The reported eGFR should be multiplied b y 1.2 for patients. The MDRD is not an appropriate measure o f renal function for patients with body mass extremes or in patients with acute kidney failure. http://[employer]/DHnkdep http://[employer]/DHMCnkf Specimen Anatomical Collection Method Collection Time Receive d Time (Source) Location / / Volume Laterality Blood specimen 08/13/2017 5:33 AM 018 6:04 (specimen) EST AM EST Resulting Agency Comment Spec In Lab Yonathan Smith MD CHEMISTRY ORDERABLES Performing Organization Address City/[facility]/ZIP Code Phon e Number [address] POCT Glucose (08/13/2017 4:29 AM EST) athologist Signature POC Glucose 111 65 - 199 BARBARA RYAN mg/dL [facility] LABORATORY Comment: Supplemental ranges: <140 mg/dL before meals <180 mg/dL all other times of the day Specimen Anatomical Collection Method Collection Time Receive d Time (Source) Location / / Volume Laterality Blood specimen 08/13/2017 4:29 AM 018 4:29 (specimen) EST AM EST Yonathan Smith MD POINT OF CARE TEST ORDERABLE S Performing Organization Address City/[facility]/ZIP Code Phon e Number [address] POCT Glucose (08/12/2017 11:28 PM EST) athologist Signature POC Glucose 164 65 - 199 BARBARA RYAN mg/dL [facility] LABORATORY Comment: Supplemental ranges: <140 mg/dL before meals <180 mg/dL all other times of the day Specimen Anatomical Collection Method Collection Time Receive d Time (Source) Location / / Volume Laterality Blood specimen 08/12/2017 11:28 8 (specimen) PM EST 11:28 PM EST Yonathan Smith MD POINT OF CARE TEST ORDERABLE S Performing Organization Address City/[facility]/ZIP Code Phon e Number [address] (ABNORMAL) POCT Glucose (08/12/2017 7:40 PM EST) athologist Signature POC Glucose 209 (H) 65 - 199 BARBARA RYAN mg/dL [facility] LABORATORY Comment: Supplemental ranges: <140 mg/dL before meals <180 mg/dL all other times of the day Specimen Anatomical Collection Method Collection Time Receive d Time (Source) Location / / Volume Laterality Blood specimen 08/12/2017 7:40 PM 018 7:40 (specimen) EST PM EST Yonathan Smith MD POINT OF CARE TEST ORDERABLE S Performing Organization Address City/[facility]/ZIP Code Phon e Number [address] POCT Glucose (08/12/2017 4:24 PM EST) athologist Signature POC Glucose 161 65 - 199 BARBARA ZHAORYAN mg/dL [facility] LABORATORY Comment: Supplemental ranges: <140 mg/dL before meals <180 mg/dL all other times of the day Specimen Anatomical Collection Method Collection Time Receive d Time (Source) Location / / Volume Laterality Blood specimen 08/12/2017 4:24 PM 018 4:24 (specimen) EST PM EST Yonathan Smith MD POINT OF CARE TEST ORDERABLE S Performing Organization Address City/[facility]/ZIP Code Phon e Number [address] POCT Glucose (08/12/2017 12:00 PM EST) athologist Signature POC Glucose 167 65 - 199 BARBARA RYAN mg/dL [facility] LABORATORY Comment: Supplemental ranges: <140 mg/dL before meals <180 mg/dL all other times of the day Specimen Anatomical Collection Method Collection Time Receive d Time (Source) Location / / Volume Laterality Blood specimen 08/12/2017 12:00 8 (specimen) PM EST 12:00 PM EST Yonathan Smith MD POINT OF CARE TEST ORDERABLE S Performing Organization Address City/[facility]/ZIP Code Phon e Number [address] POCT Glucose (08/12/2017 7:25 AM EST) athologist Signature POC Glucose 152 65 - 199 [facility] RYAN mg/dL [facility] LABORATORY Comment: Supplemental ranges: <140 mg/dL before meals <180 mg/dL all other times of the day Specimen Anatomical Collection Method Collection Time Receive d Time (Source) Location / / Volume Laterality Blood specimen 08/12/2017 7:25 AM 018 7:25 (specimen) EST AM EST Yonathan Smith MD POINT OF CARE TEST ORDERABLE S Performing Organization Address City/State/[place] [address] (ABNORMAL) Differential, Automated (08/12/2017 6:29 AM EST) [facility] Method Time Signature Neutrophils % 78.7 % [facility] LABORATORY Neutr Abs (ANC) 7.94 (H) 1.70 - [facility] 6.10 [facility] x10(3)/[facility] LABORATORY Lymphocytes % 8.8 % [facility] LABORATORY Lymphocytes Abs 0.9 0.9 - 3.2 [facility] x10(3)/[facility] LABORATORY Monocytes % 7.8 % [facility] LABORATORY Monocyte Abs 0.8 0.3 - 0.9 [facility] x10(3)/[facility] LABORATORY Eosinophils % 3.9 % [facility] LABORATORY Eosinophils Abs 0.4 0.0 - 0.4 [facility] x10(3)/[facility] LABORATORY Basophils % 0.3 % [facility] LABORATORY Basophils Abs 0.0 0.0 - 0.1 [facility] x10(3)/[facility] LABORATORY Immature Gran % 0.50 % [facility] LABORATORY Comment: [...] Address City/State/ZIP Code [place] [address] (ABNORMAL) Hemogram (08/12/2017 6:29 AM EST) Analysis Performed At Patho logist Time Signature WBC 10.1 (H) 4.0 - 9.5 [facility] x10(3)/[facility] LABORATORY RBC 3.02 (L) 4.58 - [facility] 5.54 [facility] x10(6)/[facility] LABORATORY Hemoglobin 8.7 (L) 13.7 - [facility] 16.[facility] gm/dL [facility] LABORATORY Hematocrit 28.1 (L) 40.5 - [facility] 48.5 % [facility] LABORATORY MCV 93.0 82.9 - [facility] 93.1 [facility] LABORATORY MCH 28.8 27.5 - [facility] 32.1 pg [facility] LABORATORY MCHC 31.0 (L) 32.0 - [facility] 35.7 gm/dL [facility] LABORATORY Platelets 223 145 - 357 [facility] x10(3)/[facility] LABORATORY RDWSD 56.1 (H) 36.0 - [facility] 45.0 [facility] LABORATORY RDWCV 16.4 (H) 11.4 - [facility] 13.8 % [facility] LABORATORY MPV 9.0 7.6 - 12.9 [facility] LABORATORY nRBC % Auto 0.0 % [facility] LABORATORY nRBC Abs Auto 0.000 0.000 - [facility] 0.000 [facility] x10(3)/[facility] LABORATORY Specimen Anatomical Collection Method Collection Time Receive d Time (Source) Location / / Volume Laterality Blood specimen 08/12/2017 6:29 AM 018 6:38 (specimen) EST AM EST Resulting Agency Comment Spec In Lab Yonathan Smith MD HEMATOLOGY ORDERABLES Performing Organization Address City/State/[place] [address] (ABNORMAL) Prothrombin Time (08/12/2017 6:29 AM EST) P athologist Signature PT 16.1 (H) 11.8 - 14.0 [facility] LABORATORY INR 1.3 (H) 0.9 - 1.1 [facility] LABORATORY Comment: An [...] Organization Address City/State/[place] [address] (ABNORMAL) Basic Metabolic Panel (non-fasting) (08/12/2017 6:29 AM EST) athologist Signature Glucose Lvl 151 65 - 199 [facility] mg/dL [facility] LABORATORY Comment: Diabetes: >=200 mg/dL plus symp toms BUN 18 10 - 20 mg/dL [facility] LABORATORY Creatinine 1.11 0.80 - 1.50 mg/dL [facility] LABORATORY Sodium 138 135 - 145 mmol/L [facility] LABORATORY Potassium 4.6 3.5 - 5.0 mmol/L [facility] LABORATORY Comment: Please note: ??Patients with WBC >100,00 0 may have falsely elevated Potassium levels. ??For accurate Potassium quantif ication in these patients send serum separator tube (gold top) for subsequent determinations. ??Contact the Clinical Chemistry Laboratory if there are any qu estions. Chloride 99 98 - 107 mmol/L [facility] LABORATORY CO2 28 22 - 31 mmol/L [facility] LABORATORY Anion Gap 11 5 - 15 mmol/L [facility] LABORATORY Calcium 7.9 (L) 8.5 - 10.5 mg/dL [facility] LABORATORY Estimated GFR >60 >=60 [facility] Comment: The reported eGFR should be multiplied b y 1.2 for patients. The MDRD is not an appropriate measure o f renal function for patients with body mass extremes or in patients with acute kidney failure. http://[employer]/DHnkdep http://[employer]/DHMCnkf Specimen Anatomical Collection Method Collection Time Receive d Time (Source) Location / / Volume Laterality Blood specimen 08/12/2017 6:29 AM 018 6:38 (specimen) EST AM EST Resulting Agency Comment Spec In Lab Yonathan Smith MD CHEMISTRY ORDERABLES Performing Organization Address City/[facility]/ZIP Code Phon e Number [address] POCT Glucose (08/12/2017 4:08 AM EST) athologist Signature POC Glucose 181 65 - 199 [facility] LABORATORY Comment: Supplemental ranges: <140 mg/dL before meals <180 mg/dL all other times of the day Specimen Anatomical Collection Method Collection Time Receive d Time (Source) Location / / Volume Laterality Blood specimen 08/12/2017 4:08 AM 018 4:08 (specimen) EST AM EST Yonathan Smith MD POINT OF CARE TEST ORDERABLE S Performing Organization Address City/[facility]/[place] [address] (ABNORMAL) POCT Glucose (08/12/2017 12:17 AM EST) athologist Signature POC Glucose 221 (H) 65 - 199 [facility] LABORATORY Comment: Supplemental ranges: <140 mg/dL before meals <180 mg/dL all other times of the day Specimen Anatomical Collection Method Collection Time Receive d Time (Source) Location / / Volume Laterality Blood specimen 08/12/2017 12:17 8 (specimen) AM EST 12:17 AM EST Yonathan Smith MD POINT OF CARE TEST ORDERABLE S Performing Organization Address City/State/[place] [address] (ABNORMAL) POCT Glucose (08/11/2017 8:52 PM EST) athologist Signature POC Glucose 221 (H) 65 - 199 BARBARA RYAN mg/dL [facility] LABORATORY Comment: Supplemental ranges: <140 mg/dL before meals <180 mg/dL all other times of the day Specimen Anatomical Collection Method Collection Time Receive d Time (Source) Location / / Volume Laterality Blood specimen 08/11/2017 8:52 PM 018 8:52 (specimen) EST PM EST Yonathan Smith MD POINT OF CARE TEST ORDERABLE S Performing Organization Address City/State/[place] [address] POCT Glucose (08/11/2017 5:59 PM EST) athologist Signature POC Glucose 169 65 - 199 [facility]/dL [facility] LABORATORY Comment: Supplemental ranges: <140 mg/dL before meals <180 mg/dL all other times of the day Specimen Anatomical Collection Method Collection Time Receive d Time (Source) Location / / Volume Laterality Blood specimen 08/11/2017 5:59 PM 018 5:59 (specimen) EST PM EST Yonathan Smith MD POINT OF CARE TEST ORDERABLE S Performing Organization Address City/State/[place] [address] (ABNORMAL) POCT Glucose (08/11/2017 4:08 PM EST) athologist Signature POC Glucose 240 (H) 65 - 199 BARBARA RYAN mg/dL [facility] LABORATORY Comment: Supplemental ranges: <140 mg/dL before meals <180 mg/dL all other times of the day Specimen Anatomical Collection Method Collection Time Receive d Time (Source) Location / / Volume Laterality Blood specimen 08/11/2017 4:08 PM 018 4:08 (specimen) EST PM EST Yonathan Smith MD POINT OF CARE TEST ORDERABLE S Performing Organization Address City/State/[place] [address] POCT Glucose (08/11/2017 12:04 PM EST) athologist Signature POC Glucose 182 65 - 199 [facility] mg/dL [facility] LABORATORY Comment: Supplemental ranges: <140 mg/dL before meals <180 mg/dL all other times of the day Specimen Anatomical Collection Method Collection Time Receive d Time (Source) Location / / Volume Laterality Blood specimen 08/11/2017 12:04 8 (specimen) PM EST 12:04 PM EST Yonathan Smith MD POINT OF CARE TEST ORDERABLE S Performing Organization Address City/State/ZIP Code Phon e Number [address] POCT Glucose (08/11/2017 7:31 AM EST) athologist Signature POC Glucose 156 65 - 199 [facility] LABORATORY Comment: Supplemental ranges: <140 mg/dL before meals <180 mg/dL all other times of the day Specimen Anatomical Collection Method Collection Time Receive d Time (Source) Location / / Volume Laterality Blood specimen 08/11/2017 7:31 AM 018 7:31 (specimen) EST AM EST Yonathan Smith MD POINT OF CARE TEST ORDERABLE S Performing Organization Address City/[facility]/ZIP Code Phon e Number [address] (ABNORMAL) Differential, Automated (08/11/2017 6:16 AM EST) [facility] gist Method Time Signature Neutrophils % 83.7 % [facility] LABORATORY Neutr Abs (ANC) 10.76 (H) 1.70 - [facility] 6.10 [facility] x10(3)/[facility] L LABORATORY Lymphocytes % 6.0 % [facility] LABORATORY Lymphocytes Abs 0.8 (L) 0.9 - 3.2 [facility] x10(3)/[facility] LABORATORY Monocytes % 7.5 % [facility] LABORATORY Monocyte Abs 1.0 (H) 0.3 - 0.9 [facility] x10(3)/[facility] LABORATORY Eosinophils % 2.0 % [facility] LABORATORY Eosinophils Abs 0.3 0.0 - 0.4 [facility] x10(3)/[facility] LABORATORY Basophils % 0.3 % [facility] LABORATORY Basophils Abs 0.0 0.0 - 0.1 [facility] x10(3)/[facility] LABORATORY Immature Gran % 0.50 % [facility] LABORATORY Comment: Immature granulocytes(IG's)percentage an d absolute count will include metamyelocytes, myelocytes, and promyelo cytes. Blood smears from CBCs yielding IG's will be scanned manually for concor dance. If this scan disagrees with the automated IG or if promyelocytes are not ed, a manual differential will be performed. Melisa Gran Abs 0.06 (H) 0.00 - 0.04 x10(3)/[facility] LABORATORY Specimen Anatomical Collection Method Collection Time Receive d Time (Source) Location / / Volume Laterality Blood specimen 08/11/2017 6:16 AM 018 6:24 (specimen) EST AM EST Resulting Agency Comment Spec In Lab Yonathan Smith MD HEMATOLOGY ORDERABLES Performing Organization Address City/State/[place] [address] (ABNORMAL) Hemogram (08/11/2017 6:16 AM EST) Analysis Performed At Patho logist Time Signature WBC 12.9 (H) 4.0 - 9.5 [facility] x10(3)/[facility] LABORATORY RBC 3.28 (L) 4.58 - [facility] 5.54 [facility] x10(6)/[facility] LABORATORY Hemoglobin 9.5 (L) 13.7 - [facility] 16.[facility] gm/dL [facility] LABORATORY Hematocrit 29.8 (L) 40.5 - [facility] 48.5 % [facility] LABORATORY MCV 90.9 82.9 - [facility] 93.1 fL [facility] LABORATORY MCH 29.0 27.5 - [facility] 32.1 pg [facility] LABORATORY MCHC 31.9 (L) 32.0 - [facility] 35.7 gm/dL [facility] LABORATORY Platelets 236 145 - 357 [facility] x10(3)/[facility] LABORATORY RDWSD 53.5 (H) 36.0 - [facility] 45.0 [facility] LABORATORY RDWCV 16.3 (H) 11.4 - [facility] 13.8 % [facility] LABORATORY MPV 8.8 7.6 - 12.9 [facility] LABORATORY nRBC % Auto 0.0 % [facility] LABORATORY nRBC Abs Auto 0.000 0.000 - BARBARA RYAN 0.000 [facility] x10(3)/[facility] LABORATORY Specimen Anatomical Collection Method Collection Time Receive d Time (Source) Location / / Volume Laterality Blood specimen 08/11/2017 6:16 AM 018 6:24 (specimen) EST AM EST Resulting Agency Comment Spec In Lab Yonathan Smith MD HEMATOLOGY ORDERABLES Performing Organization Address City/[facility] [place] [address] (ABNORMAL) Prothrombin Time (08/11/2017 6:16 AM EST) P athologist Signature PT 15.5 (H) 11.8 - 14.0 [facility] LABORATORY INR 1.3 (H) 0.9 - 1.1 [facility] LABORATORY Comment: An [...] Smith MD HEMATOLOGY ORDERABLES Performing Organization Address City/[facility] [place] [address] Basic Metabolic Panel (non-fasting) (08/11/2017 6:16 AM EST) athologist Signature Glucose Lvl 139 65 - 199 [facility] mg/dL [facility] LABORATORY Comment: Diabetes: >=200 mg/dL plus symp toms BUN 12 10 - 20 mg/dL [facility] LABORATORY Creatinine 0.91 0.80 - 1.50 mg/dL [facility] LABORATORY Sodium 138 135 - 145 mmol/L [facility] LABORATORY Potassium 4.6 3.5 - 5.0 mmol/L [facility] LABORATORY Comment: Please note: ??Patients with WBC >100,00 0 may have falsely elevated Potassium levels. ??For accurate Potassium quantif ication in these patients send serum separator tube (gold top) for subsequent determinations. ??Contact the Clinical Chemistry Laboratory if there are any qu estions. Chloride 98 98 - 107 mmol/L [facility] LABORATORY CO2 27 22 - 31 mmol/L [facility] LABORATORY Anion Gap 13 5 - 15 mmol/L [facility] LABORATORY Calcium 8.5 8.5 - 10.5 mg/dL [facility] LABORATORY Estimated GFR >60 >=60 [facility] LABORATORY Comment: The reported eGFR should be multiplied b y 1.2 for patients. The MDRD is not an appropriate measure o f renal function for patients with body mass extremes or in patients with acute kidney failure. [email or web address] [email or web address] Specimen Anatomical Collection Method Collection Time Receive d Time (Source) Location / / Volume Laterality Blood specimen 08/11/2017 6:16 AM 018 6:24 (specimen) EST AM EST Resulting Agency Comment Spec In Lab Yonathan Smith MD CHEMISTRY ORDERABLES Performing Organization Address City/State/[place] [address] POCT Glucose (08/11/2017 4:07 AM EST) athologist Signature POC Glucose 162 65 - 199 [facility] mg/dL [facility] LABORATORY Comment: Supplemental ranges: <140 mg/dL before meals <180 mg/dL all other times of the day Specimen Anatomical Collection Method Collection Time Receive d Time (Source) Location / / Volume Laterality Blood specimen 08/11/2017 4:07 AM 018 4:07 (specimen) EST AM EST Yonathan Smith MD POINT OF CARE TEST ORDERABLE S Performing Organization Address City/State/ZIP Code Phon e Number [address] POCT Glucose (08/10/2017 11:59 PM EST) athologist Signature POC Glucose 166 65 - 199 [place]BARA RYAN mg/dL [facility] LABORATORY Comment: Supplemental ranges: <140 mg/dL before meals <180 mg/dL all other times of the day Specimen Anatomical Collection Method Collection Time Receive d Time (Source) Location / / Volume Laterality Blood specimen 08/10/2017 11:59 8 (specimen) PM EST 11:59 PM EST Yonathan Smith MD POINT OF CARE TEST ORDERABLE S Performing Organization Address City/State/ZIP Code Phon e Number [address] POCT Glucose (08/10/2017 8:12 PM EST) athologist Signature POC Glucose 156 65 - 199 [facility] LABORATORY Comment: Supplemental ranges: <140 mg/dL before meals <180 mg/dL all other times of the day Specimen Anatomical Collection Method Collection Time Receive d Time (Source) Location / / Volume Laterality Blood specimen 08/10/2017 8:12 PM 018 8:12 (specimen) EST PM EST Yonathan Smith MD POINT OF CARE TEST ORDERABLE S Performing Organization Address City/State/ZIP Code Phon e Number [address] (ABNORMAL) POCT Glucose (08/10/2017 4:42 PM EST) athologist Signature POC Glucose 211 (H) 65 - 199 [facility] RYAN mg/dL [facility] LABORATORY Comment: Supplemental ranges: <140 mg/dL before meals <180 mg/dL all other times of the day Specimen Anatomical Collection Method Collection Time Receive d Time (Source) Location / / Volume Laterality Blood specimen 08/10/2017 4:42 PM 018 4:42 (specimen) EST PM EST Yonathan Smith MD POINT OF CARE TEST ORDERABLE S Performing Organization Address City/State/[place] [address] (ABNORMAL) Differential, Automated (08/10/2017 2:30 PM EST) [facility] Method Time Signature Neutrophils % 87.6 % [facility] LABORATORY Neutr Abs (ANC) 9.90 (H) 1.70 - [facility] 6.10 [facility] x10(3)/[facility] LABORATORY Lymphocytes % 4.3 % [facility] LABORATORY Lymphocytes Abs 0.5 (L) 0.9 - 3.2 [facility] x10(3)/[facility] LABORATORY Monocytes % 6.0 % [facility] LABORATORY Monocyte Abs 0.7 0.3 - 0.9 [facility] x10(3)/[facility] LABORATORY Eosinophils % 1.1 % [facility] LABORATORY Eosinophils Abs 0.1 0.0 - 0.4 [facility] x10(3)/[facility] LABORATORY Basophils % 0.4 % [facility] LABORATORY Basophils Abs 0.0 0.0 - 0.1 [facility] x10(3)/[facility] LABORATORY Immature Gran % 0.60 % [facility] LABORATORY Comment: Immature granulocytes(IG's)percentage an d absolute count will include metamyelocytes, myelocytes, and promyelo cytes. Blood smears from CBCs yielding IG's will be scanned manually for concor dance. If this scan disagrees with the automated IG or if promyelocytes are not ed, a manual differential will be performed. Melisa Gran Abs 0.07 (H) 0.00 - 0.04 x10(3)/[facility] LABORATORY Specimen Anatomical Collection Method Collection Time Receive d Time (Source) Location / / Volume Laterality Blood specimen 08/10/2017 2:30 PM 018 2:48 (specimen) EST PM EST Resulting Agency Comment Spec In Lab Yonathan Smith MD HEMATOLOGY ORDERABLES Performing Organization Address City/State/[place] [address] (ABNORMAL) Hemogram (08/10/2017 2:30 PM EST) Analysis Performed At Patho logist Time Signature WBC 11.3 (H) 4.0 - 9.5 [facility] x[facility](3[facility] LABORATORY RBC 3.13 (L) 4.58 - BARBARA RYAN 5.54 [facility] x10(6)/[facility] LABORATORY Hemoglobin 8.9 (L) 13.7 - [facility] 16.5 gm/dL [facility] LABORATORY Hematocrit 28.4 (L) 40.5 - [facility] 48.5 % [facility] LABORATORY MCV 90.7 82.9 - [facility]1 [facility] LABORATORY MCH 28.4 27.5 - BARBARA RYAN 32.1 pg [facility] LABORATORY MCHC 31.3 (L) 32.0 - BARBAR[place] RYAN 35.7 gm/dL [facility] LABORATORY Platelets 213 145 - 357 [facility] x10(3)/[facility] LABORATORY RDWSD 53.7 (H) 36.0 - [facility] 45.0 [facility] LABORATORY RDWCV 16.4 (H) 11.4 - [facility] RYAN 13.8 % [facility] LABORATORY MPV 8.9 7.6 - 12.9 [facility] LABORATORY nRBC % Auto 0.0 % [facility] LABORATORY nRBC Abs Auto 0.000 0.000 - BARBAR[place] RYAN 0.000 [facility] x10(3)/[facility] LABORATORY Specimen Anatomical Collection Method Collection Time Receive d Time (Source) Location / / Volume Laterality Blood specimen 08/10/2017 2:30 PM 018 2:48 (specimen) EST PM EST Resulting Agency Comment Spec In Lab Yonathan Smith MD HEMATOLOGY ORDERABLES Performing Organization Address City/State/[place] [address] (ABNORMAL) POCT Glucose (08/10/2017 1:50 PM EST) athologist Signature POC Glucose 243 (H) 65 - 199 [facility]/dL [facility] LABORATORY Comment: Supplemental ranges: <140 mg/dL before meals <180 mg/dL all other times of the day Specimen Anatomical Collection Method Collection Time Receive d Time (Source) Location / / Volume Laterality Blood specimen 08/10/2017 1:50 PM 018 1:50 (specimen) EST PM EST Yonathan Smith MD POINT OF CARE TEST ORDERABLE S Performing Organization Address City/State/ZIP Code Phon e Number [address] POCT Glucose (08/10/2017 11:21 AM EST) athologist Signature POC Glucose 156 65 - 199 [facility] LABORATORY Comment: Supplemental ranges: <140 mg/dL before meals <180 mg/dL all other times of the day Specimen Anatomical Collection Method Collection Time Receive d Time (Source) Location / / Volume Laterality Blood specimen 08/10/2017 11:21 8 (specimen) AM EST 11:21 AM EST Yonathan Smith MD POINT OF CARE TEST ORDERABLE S Performing Organization Address City/[facility]/ZIP Code Phon e Number [address] (ABNORMAL) Differential, Automated (08/10/2017 10:28 AM EST) [facility] gist Method Time Signature Neutrophils % 85.3 % [facility] LABORATORY Neutr Abs (ANC) 9.43 (H) 1.70 - [facility] 6.10 [facility] x10(3)/[facility] L LABORATORY Lymphocytes % 5.5 % [facility] LABORATORY Lymphocytes Abs 0.6 (L) 0.9 - 3.2 [facility] x10(3)/[facility] LABORATORY Monocytes % 5.9 % [facility] LABORATORY Monocyte Abs 0.6 0.3 - 0.9 [facility] x10(3)/[facility] LABORATORY Eosinophils % 2.1 % [facility] LABORATORY Eosinophils Abs 0.2 0.0 - 0.4 [facility] x10(3)/[facility] LABORATORY Basophils % 0.4 % [facility] LABORATORY Basophils Abs 0.0 0.0 - 0.1 [facility] x10(3)/[facility] LABORATORY Immature Gran % 0.80 % [facility] LABORATORY Comment: [...] Organization Address City/State/[place] [address] (ABNORMAL) Hemogram (08/10/2017 10:28 AM EST) Analysis Performed At Patho logist Time Signature WBC 11.0 (H) 4.0 - 9.5 [facility] x10(3)/[facility] LABORATORY RBC 3.02 (L) 4.58 - [facility] 5.54 [facility] x10(6)/[facility] LABORATORY Hemoglobin 8.8 (L) 13.7 - [facility] 16.5 gm/dL [facility] LABORATORY Hematocrit 28.1 (L) 40.5 - [facility] 48.5 % [facility] LABORATORY MCV 93.0 82.9 - [facility] 93.1 fL [facility] LABORATORY MCH 29.1 27.5 - [facility] 32.1 pg [facility] LABORATORY MCHC 31.3 (L) 32.0 - [facility] 35.7 gm/dL [facility] LABORATORY Platelets 207 145 - 357 [facility] x10(3)/[facility] LABORATORY RDWSD 55.3 (H) 36.0 - BARBARA DAVIS 45.0 [facility] LABORATORY RDWCV 16.4 (H) 11.4 - [place]BAR[place] RYAN 13.8 % [facility] MPV 9.0 7.6 - 12.9 [place]BAR[facility] RYAN [facility] LABORATORY nRBC % Auto 0.0 % [facility] nRBC Abs Auto 0.000 0.000 - BARBARA DAVIS 0.000 [facility] x10(3)/[facility] LABORATORY Specimen Anatomical Collection Method Collection Time Receive d Time (Source) Location / / Volume Laterality Blood specimen 08/10/2017 10:28 8 (specimen) AM EST 10:35 AM EST Resulting Agency Comment Spec In Lab Yonathan Smith MD HEMATOLOGY ORDERABLES Performing Organization Address City/State/[place] [address] VS Angiogram/intervention (vascular) (08/10/2017 [...] 2.5x80 5. Completion RLE angiogram 6. L NUTRITION INTERN angiogram 7. 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 L NUTRITION INTERN access in the distal L NUTRITION INTERN. - Closure device: Mynx Technical Procedure: ?The [...] for a 45cm 5F Destination. V18 and Cummings a nd QuickCross catheters were used to [...] bifurcation. Access appeared in the distal R NUTRITION INTERN. Closure and sheath removal was performed with [...] 2.5x80 5. Completion RLE angiogram 6. L NUTRITION INTERN angiogram 7. 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 L NUTRITION INTERN access in the distal L NUTRITION INTERN. - Closure device: Mynx Technical Procedure: The [...] for a 45cm 5F Destination. V18 and Cummings a nd QuickCross catheters were used to [...] bifurcation. Access appeared in the distal R NUTRITION INTERN. Closure and sheath removal was performed with [...] (ABNORMAL) Differential, Automated (08/10/2017 5:50 AM EST) [facility] Method Time Signature Neutrophils % 80.1 % [facility] LABORATORY Neutr Abs (ANC) 9.01 (H) 1.70 - [facility] 6.10 [facility] x10(3)/[facility] LABORATORY Lymphocytes % 8.8 % [facility] LABORATORY Lymphocytes Abs 1.0 0.9 - 3.2 [facility] x10(3)/[facility] LABORATORY Monocytes % 8.3 % [facility] LABORATORY Monocyte Abs 0.9 0.3 - 0.9 [facility] x10(3)/[facility] LABORATORY Eosinophils % 2.0 % [facility] LABORATORY Eosinophils Abs 0.2 0.0 - 0.4 [facility] x10(3)/[facility] LABORATORY Basophils % 0.4 % [facility] LABORATORY Basophils Abs 0.0 0.0 - 0.1 [facility] x10(3)/[facility] LABORATORY Immature Gran % 0.40 % [facility] LABORATORY Comment: [...] Organization Address City/State/[place] [address] (ABNORMAL) Hemogram (08/10/2017 5:50 AM EST) Analysis Performed At Patho logist Time Signature WBC 11.3 (H) 4.0 - 9.5 [facility] x10(3)/[facility] LABORATORY RBC 3.15 (L) 4.58 - [facility] 5.54 [facility] x10(6)/[facility] LABORATORY Hemoglobin 8.9 (L) 13.7 - [facility] 16.5 gm/dL [facility] LABORATORY Hematocrit 29.0 (L) 40.5 - [facility] 48.5 % [facility] LABORATORY MCV 92.1 82.9 - [facility] 93.1 [facility] LABORATORY MCH 28.3 27.5 - [facility] 32.1 pg [facility] LABORATORY MCHC 30.7 (L) 32.0 - [facility] 35.7 gm/dL [facility] LABORATORY Platelets 231 145 - 357 [facility] x10(3)/[facility] LABORATORY RDWSD 53.9 (H) 36.0 - [facility] RYAN 45.0 [facility] LABORATORY RDWCV 16.2 (H) 11.4 - [facility] RYAN 13.8 % [facility] LABORATORY MPV 8.7 7.6 - 12.9 [facility] LABORATORY nRBC % Auto 0.0 % [facility] LABORATORY nRBC Abs Auto 0.000 0.000 - [facility] 0.000 [facility] x10(3)/[facility] LABORATORY Specimen Anatomical Collection Method Collection Time Receive d Time (Source) Location / / Volume Laterality Blood specimen 08/10/2017 5:50 AM 018 5:59 (specimen) EST AM EST Resulting Agency Comment Spec In Lab Yonathan Smith MD HEMATOLOGY ORDERABLES Performing Organization Address City/State/[place] [address] (ABNORMAL) Basic Metabolic Panel (non-fasting) (08/10/2017 5:50 AM EST) athologist Signature Glucose Lvl 135 65 - 199 [facility] mg/dL [facility] LABORATORY Comment: Diabetes: >=200 mg/dL plus symp toms BUN 17 10 - 20 mg/dL [facility] LABORATORY Creatinine 1.05 0.80 - 1.50 mg/dL [facility] LABORATORY Sodium 144 135 - 145 mmol/L [facility] LABORATORY Potassium 4.6 3.5 - 5.0 mmol/L [facility] LABORATORY Comment: Please note: ??Patients with WBC >100,00 0 may have falsely elevated Potassium levels. ??For accurate Potassium quantif ication in these patients send serum separator tube (gold top) for subsequent determinations. ??Contact the Clinical Chemistry Laboratory if there are any qu estions. Chloride 104 98 - 107 mmol/L [facility] LABORATORY CO2 27 22 - 31 mmol/L [facility] LABORATORY Anion Gap 13 5 - 15 mmol/L [facility] LABORATORY Calcium 8.1 (L) 8.5 - 10.5 mg/dL [facility] LABORATORY Estimated GFR >60 >=60 [facility] LABORATORY Comment: The reported eGFR should be multiplied b y 1.2 for patients. The MDRD is not an appropriate measure o f renal function for patients with body mass extremes or in patients with acute kidney failure. [email or web address] Specimen Anatomical Collection Method Collection Time Receive d Time (Source) Location / / Volume Laterality Blood specimen 08/10/2017 5:50 AM 018 5:59 (specimen) EST AM EST Resulting Agency Comment Spec In Lab Yonathan Smith MD CHEMISTRY ORDERABLES Performing Organization Address City/State/[place] [address] (ABNORMAL) Prothrombin Time (08/10/2017 5:50 AM EST) athologist Signature PT 16.8 (H) 11.8 - 14.0 [facility] LABORATORY INR 1.4 (H) 0.9 - 1.1 [facility] LABORATORY Comment: An [...] Smith MD HEMATOLOGY ORDERABLES Performing Organization Address City/[facility]/[place] [address] (ABNORMAL) POCT Glucose (08/10/2017 4:01 AM EST) athologist Signature POC Glucose 206 (H) 65 - 199 [facility] RYAN mg/dL [facility] LABORATORY Comment: Supplemental ranges: <140 mg/dL before meals <180 mg/dL all other times of the day Specimen Anatomical Collection Method Collection Time Receive d Time (Source) Location / / Volume Laterality Blood specimen 08/10/2017 4:01 AM 018 4:01 (specimen) EST AM EST Yonathan Smith MD POINT OF CARE TEST ORDERABLE S Performing Organization Address City/[facility]/[place] [address] POCT Glucose (08/10/2017 2:01 AM EST) athologist Signature POC Glucose 188 65 - 199 [facility] RYAN mg/dL [facility] LABORATORY Comment: Supplemental ranges: <140 mg/dL before meals <180 mg/dL all other times of the day Specimen Anatomical Collection Method Collection Time Receive d Time (Source) Location / / Volume Laterality Blood specimen 08/10/2017 2:01 AM 018 2:01 (specimen) EST AM EST Yonathan Smith MD POINT OF CARE TEST ORDERABLE S Performing Organization Address City/State/[place] [address] (ABNORMAL) POCT Glucose (08/09/2017 11:42 PM EST) P athologist Signature POC Glucose 283 (H) 65 - 199 [facility] LABORATORY Comment: Supplemental ranges: <140 mg/dL before meals <180 mg/dL all other times of the day Specimen Anatomical Collection Method Collection Time Receive d Time (Source) Location / / Volume Laterality Blood specimen 08/09/2017 11:42 8 (specimen) PM EST 11:42 PM EST Yonathan Smith MD POINT OF CARE TEST ORDERABLE S Performing Organization Address City/State/[place] [address] POCT Glucose (08/09/2017 8:55 PM EST) P athologist Signature POC Glucose 182 65 - 199 [facility] LABORATORY Comment: Supplemental ranges: <140 mg/dL before meals <180 mg/dL all other times of the day Specimen Anatomical Collection Method Collection Time Receive d Time (Source) Location / / Volume Laterality Blood specimen 08/09/2017 8:55 PM 018 8:55 (specimen) EST PM EST Yonathan Smith MD POINT OF CARE TEST ORDERABLE S Performing Organization Address City/State/[place] [address] (ABNORMAL) APTT (08/09/2017 6:42 PM EST) P athologist Signature PTT 90 (H) 25 - 35 sec [facility] LABORATORY Comment: The recommended therapeutic range for fu ll dose, unfractionated heparin at [facility] is 80 ? 114 [...] Address City/State/ZIP Code Phon e Number [address] POCT Glucose (08/09/2017 4:41 PM EST) athologist Signature POC Glucose 195 65 - 199 [facility] LABORATORY Comment: Supplemental ranges: <140 mg/dL before meals <180 mg/dL all other times of the day Specimen Anatomical Collection Method Collection Time Receive d Time (Source) Location / / Volume Laterality Blood specimen 08/09/2017 4:41 PM 018 4:41 (specimen) EST PM EST Yonathan Smith MD POINT OF CARE TEST ORDERABLE S Performing Organization Address City/[facility]/ZIP Code Phon e Number [address] POCT Glucose (08/09/2017 12:29 PM EST) athologist Signature POC Glucose 140 65 - 199 [facility] mg/dL [facility] LABORATORY Comment: Supplemental ranges: <140 mg/dL before meals <180 mg/dL all other times of the day Specimen Anatomical Collection Method Collection Time Receive d Time (Source) Location / / Volume Laterality Blood specimen 08/09/2017 12:29 8 (specimen) PM EST 12:29 PM EST Yonathan Smith MD POINT OF CARE TEST ORDERABLE S Performing Organization Address City/State/ZIP Code Phon e Number [address] POCT Glucose (08/09/2017 9:59 AM EST) athologist Signature POC Glucose 135 65 - 199 [facility] mg/dL [facility] Comment: Supplemental ranges: <140 mg/dL before meals <180 mg/dL all other times of the day Specimen Anatomical Collection Method Collection Time Receive d Time (Source) Location / / Volume Laterality Blood specimen 08/09/2017 9:59 AM 018 9:59 (specimen) EST AM EST Yonathan Smith MD POINT OF CARE TEST ORDERABLE S Performing Organization Address City/[facility]/[place] [address] Specimen to Pathology (08/09/2017 8:41 AM EST) Specimen Anatomical Collection Method Collection Time Receive d Time (Source) Location / / Volume Laterality AP Specimen 08/09/2017 8:41 AM 8 8:41 EST AM EST Narrative [facility] ORY - 08/09/2017 8:41 AM EST Specimen requisition ordered. ??Separate Pathology report to follow Yonathan Smith MD PATHOLOGY/CYTOLOGY ORDERABLE S Performing Organization Address City/State/[place] [address] Surgical Pathology Report (08/09/2017 8:40 AM EST) Component Value Ref Test Analysis Performed At [facility] gist Range Method Time Signature Surgical [id number] ? Location: [facility]; [facility]; [facility] Report The signing pathologist has (i) examined the relevant preparation(s) for the [facility] specimen(s) and (ii) rendered or confirmed the diagnosis(es) . HOSPITAL LABORATORY . 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 ?Viable proximal resection margins. Electronically signed by: ??Manjit STRANGE, Henrique Flower Verified: ??08/13/2017 ?Pathologist Performed at: ??-[facility] Dept. of Pathology, [place], [place] CLINICAL INFORMATION Specimen Submitted: A - [...] Organization Address City/State/[place] [address] Anaerobic Culture (08/09/2017 8:30 AM EST) [facility] gist Method Time Signature Anaerobic No anaerobic [facility] Culture organisms [facility] LABORATORY Specimen Anatomical Collection Method Collection Time [...] Organization Address City/State/[place] [address] (ABNORMAL) Abscess/Wound Aspirate Culture (08/09/2017 8:30 AM EST) [facility] Method Time Signature Abscess/Wound Moderate mixed [place] Aspirate bacterial [place] Culture morphotypes [facility] normal LABORATORY cutaneous leroy (A) Gram Stain Rare White Blood Cells [place] Few Gram Positive Cocci in pairs [place] () [facility] Organism Gram Positive [place] Cocci in pairs [place] () [facility] Specimen Anatomical Collection [...] - GENERAL ORDER ROBSON Performing Organization Address City/[facility]/ZIP Code Phon e Number [address] POCT Glucose (08/09/2017 4:28 AM EST) P athologist Signature POC Glucose 128 65 - 199 [facility] mg/dL [facility] Comment: Supplemental ranges: <140 mg/dL before meals <180 mg/dL all other times of the day Specimen Anatomical Collection Method Collection Time Receive d Time (Source) Location / / Volume Laterality Blood specimen 08/09/2017 4:28 AM 018 4:28 (specimen) EST AM EST Yonathan Smith MD POINT OF CARE TEST ORDERABLE S Performing Organization Address City/[facility]/ZIP Code Phon e Number [address] ABORH Recheck Status (08/09/2017 1:10 AM EST) [facility] Method Time Signature ABORH Type Completed [facility] LABORATORY Specimen Anatomical Collection Method Collection Time Receive d Time (Source) Location / / Volume Laterality Blood specimen 08/09/2017 1:10 AM 018 1:35 (specimen) EST AM EST Resulting Agency Comment Spec In Lab Yonathan Smith MD BLOOD BANK ORDERABLES Performing Organization Address City/[facility]/[place] [address] Antibody screen (08/09/2017 1:10 AM EST) Patholo gist Method Time Signature Ab Screen Negative [facility] LABORATORY Expires at 08/12/2017 [facility] [id number] on: [facility] Specimen Anatomical Collection Method Collection Time Receive d Time (Source) Location / / Volume Laterality Blood specimen 08/09/2017 1:10 AM 018 1:35 (specimen) EST AM EST Resulting Agency Comment Spec In Lab Yonathan Smith MD BLOOD BANK ORDERABLES Performing Organization Address City/[facility]/ZIP Code Phon e Number [address] ABO/Rh Typing (08/09/2017 1:10 AM EST) P athologist Signature ABORh Type O Pos [facility] Specimen Anatomical Collection Method Collection Time Receive d Time (Source) Location / / Volume Laterality Blood specimen 08/09/2017 1:10 AM 018 1:35 (specimen) EST AM EST Resulting Agency Comment Spec In Lab Yonathan Smith MD BLOOD BANK ORDERABLES Performing Organization Address City/[facility] [place] [address] (ABNORMAL) APTT (08/09/2017 1:10 AM EST) P athologist Signature PTT 86 (H) 25 - 35 sec [facility] Comment: The recommended therapeutic range for fu ll dose, unfractionated heparin at [facility] is 80 ? 114 [...] Organization Address City/State/[place] [address] (ABNORMAL) Differential, Automated (08/09/2017 1:10 AM EST) [facility] Method Time Signature Neutrophils % 76.2 % [facility] Neutr Abs (ANC) 8.59 (H) 1.70 - [facility] 6.10 [facility] x10(3)/[facility] LABORATORY Lymphocytes % 11.0 % [facility] Lymphocytes Abs 1.2 0.9 - 3.2 [facility] x10(3)/[facility] LABORATORY Monocytes % 8.4 % [facility]ORY Monocyte Abs 1.0 (H) 0.3 - 0.9 [facility] x10(3)/[facility] LABORATORY Eosinophils % 3.5 % [facility] Eosinophils Abs 0.4 0.0 - 0.4 [facility] x10(3)/[facility] LABORATORY Basophils % 0.5 % [facility] Basophils Abs 0.1 0.0 - 0.1 [facility] x10(3)/[facility] LABORATORY Immature Gran % 0.40 % [facility] Comment: [...] Organization Address City/State/ZIP Code Phon e Number [place] [id number] HOS[address] LAB[address]ORY Drive (ABNORMAL) Hemogram (08/09/2017 1:10 AM EST) Analysis Performed At Patho logist Time Signature WBC 11.3 (H) 4.0 - 9.5 [facility] x[facility](3[facility] LABORATORY RBC 3.47 (L) 4.58 - BARBARA RYAN 5.54 [facility] x10(6)/[facility] LABORATORY Hemoglobin 10.0 (L) 13.7 - [facility] 16.5 gm/dL [facility] Hematocrit 31.9 (L) 40.5 - [facility] 48.5 % [facility] MCV 91.9 82.9 - [facility] 93.1 [facility] LABORATORY MCH 28.8 27.5 - [facility] 32.1 pg [facility] MCHC 31.3 (L) 32.0 - [facility] 35.7 gm/dL [facility] Platelets 234 145 - 357 [facility] x10(3)/[facility] LABORATORY RDWSD 54.0 (H) 36.0 - [facility] 45.0 [facility] LABORATORY RDWCV 16.2 (H) 11.4 - [facility] 13.8 % [facility] MPV 8.7 7.6 - 12.9 [facility] LABORATORY nRBC % Auto 0.0 % [facility] nRBC Abs Auto 0.000 0.000 - [facility] RYAN 0.000 [facility] x10(3)/[facility] LABORATORY Specimen Anatomical Collection Method Collection Time Receive d Time (Source) Location / / Volume Laterality Blood specimen 08/09/2017 1:10 AM 018 1:19 (specimen) EST AM EST Resulting Agency Comment Spec In Lab Yonathan Smith MD HEMATOLOGY ORDERABLES Performing Organization Address City/State/[place] [address] (ABNORMAL) Prothrombin Time (08/09/2017 1:10 AM EST) P athologist Signature PT 16.0 (H) 11.8 - 14.0 [facility] LABORATORY INR 1.3 (H) 0.9 - 1.1 [facility] Comment: An [...] Organization Address City/State/ZIP Code Phon e Number [place] [id number] HOS[address]ORY Drive (ABNORMAL) Basic Metabolic Panel (non-fasting) (08/09/2017 1:10 AM EST) athologist Signature Glucose Lvl 108 65 - 199 [facility] mg/dL [facility] Comment: Diabetes: >=200 mg/dL plus symp toms BUN 34 (H) 10 - 20 mg/dL [facility] LABORATORY Creatinine 1.54 (H) 0.80 - 1.50 mg/dL [facility] LABORATORY Sodium 138 135 - 145 mmol/L [facility] LABORATORY Potassium 4.5 3.5 - 5.0 mmol/L [facility] Comment: Please note: ??Patients with WBC >100,00 0 may have falsely elevated Potassium levels. ??For accurate Potassium quantif ication in these patients send serum separator tube (gold top) for subsequent determinations. ??Contact the Clinical Chemistry Laboratory if there are any qu estions. Chloride 96 (L) 98 - 107 mmol/L [facility] CO2 29 22 - 31 mmol/L [facility] Anion Gap 13 5 - 15 mmol/L [facility] LABOR[facility]ORY Calcium 8.3 (L) 8.5 - 10.5 mg/dL [facility] Linnea [facility] Estimated GFR 45 (L) >=60 [facility] Comment: The reported eGFR should be multiplied b y 1.2 for patients. The MDRD is not an appropriate measure o f renal function for patients with body mass extremes or in patients with acute kidney failure. http://[employer]/DHnkdep http://[employer]/DHMCnkf Specimen Anatomical Collection Method Collection Time Receive d Time (Source) Location / / Volume Laterality Blood specimen 08/09/2017 1:10 AM 018 1:19 (specimen) EST AM EST Resulting Agency Comment Spec In Lab Yonathan Smith MD CHEMISTRY ORDERABLES Performing Organization Address City/[facility]/ZIP Code Phon e Number [address] POCT Glucose (08/09/2017 12:05 AM EST) P athologist Signature POC Glucose 128 65 - 199 [facility]/dL [facility] Comment: Supplemental ranges: <140 mg/dL before meals <180 mg/dL all other times of the day Specimen Anatomical Collection Method Collection Time Receive d Time (Source) Location / / Volume Laterality Blood specimen 08/09/2017 12:05 8 (specimen) AM EST 12:05 AM EST Yonathan Smith MD POINT OF CARE TEST ORDERABLE S Performing Organization Address City/State/[place] [address] (ABNORMAL) POCT Glucose (08/08/2017 7:36 PM EST) P athologist Signature POC Glucose 215 (H) 65 - 199 [facility] mg/dL [facility] Comment: Supplemental ranges: <140 mg/dL before meals <180 mg/dL all other times of the day Specimen Anatomical Collection Method Collection Time Receive d Time (Source) Location / / Volume Laterality Blood specimen 08/08/2017 7:36 PM 018 7:36 (specimen) EST PM EST Yonathan Smith MD POINT OF CARE TEST ORDERABLE S Performing Organization Address City/State/[place] [address] (ABNORMAL) POCT Glucose (08/08/2017 6:23 PM EST) athologist Signature POC Glucose 216 (H) 65 - 199 [facility] Comment: Supplemental ranges: <140 mg/dL before meals <180 mg/dL all other times of the day Specimen Anatomical Collection Method Collection Time Receive d Time (Source) Location / / Volume Laterality Blood specimen 08/08/2017 6:23 PM 018 6:23 (specimen) EST PM EST Yonathan Smith MD POINT OF CARE TEST ORDERABLE S Performing Organization Address City/[facility]/ZIP Code Phon e Number [address] (ABNORMAL) APTT (08/08/2017 6:00 PM EST) athologist [facility] PTT 97 (H) 25 - 35 sec [facility] Comment: The recommended therapeutic range for fu ll dose, unfractionated heparin at [facility] is 80 ? 114 [...] Organization Address City/State/[place] [address] POCT Glucose (08/08/2017 4:42 PM EST) athologist Signature POC Glucose 78 65 - 199 [facility]dL [facility] Comment: Supplemental ranges: <140 mg/dL before meals <180 mg/dL all other times of the day Specimen Anatomical Collection Method Collection Time Receive d Time (Source) Location / / Volume Laterality Blood specimen 08/08/2017 4:42 PM 018 4:42 (specimen) EST PM EST Yonathan Smith MD POINT OF CARE TEST ORDERABLE S Performing Organization Address City/[facility]/[place] [address] (ABNORMAL) POCT Glucose (08/08/2017 4:01 PM EST) athologist Signature POC Glucose 58 (L) 65 - 199 [facility] mg/dL [facility] Comment: Supplemental ranges: <140 mg/dL before meals <180 mg/dL all other times of the day Specimen Anatomical Collection Method Collection Time Receive d Time (Source) Location / / Volume Laterality Blood specimen 08/08/2017 4:01 PM 018 4:01 (specimen) EST PM EST Yonathan Smith MD POINT OF CARE TEST ORDERABLE S Performing Organization Address City/[facility]/[place] [address] POCT Glucose (08/08/2017 11:51 AM EST) athologist Signature POC Glucose 90 65 - 199 [facility] mg/dL [facility] Comment: Supplemental ranges: <140 mg/dL before meals <180 mg/dL all other times of the day Specimen Anatomical Collection Method Collection Time Receive d Time (Source) Location / / Volume Laterality Blood specimen 08/08/2017 11:51 8 (specimen) AM EST 11:51 AM EST Yonathan Smith MD POINT OF CARE TEST ORDERABLE S Performing Organization Address City/State/[place] [address] (ABNORMAL) APTT (08/08/2017 10:27 AM EST) athologist Signature PTT 64 (H) 25 - 35 sec [facility] Comment: The recommended therapeutic range for fu ll dose, unfractionated heparin at [facility] is 80 ? 114 [...] Smith MD HEMATOLOGY ORDERABLES Performing Organization Address City/[facility]/[place] [address] POCT Glucose (08/08/2017 8:02 AM EST) athologist Signature POC Glucose 178 65 - 199 [facility] mg/dL [facility]OR[facility]ORY Comment: Supplemental ranges: <140 mg/dL before meals <180 mg/dL all other times of the day Specimen Anatomical Collection Method Collection Time Receive d Time (Source) Location / / Volume Laterality Blood specimen 08/08/2017 8:02 AM 018 8:02 (specimen) EST AM EST Yonathan Smith MD POINT OF CARE TEST ORDERABLE S Performing Organization Address City/[facility] [place] [address] (ABNORMAL) APTT (08/08/2017 4:51 AM EST) athologist Signature PTT >160 25 - 35 [facility] (Critical) sec [facility] Comment: Called by: HOWARD, Read back by: Melba Jaramillo, Date/Time:08/08/17 05:43. The recommended therapeutic range for fu ll dose, unfractionated heparin at [facility] is 80 ? 114 [...] Smith MD HEMATOLOGY ORDERABLES Performing Organization Address City/[facility]/[place] [address] (ABNORMAL) Differential, Automated (08/08/2017 4:51 AM EST) Patholo gist Method Time Signature Neutrophils % 77.9 % [facility]OR[facility]ORY Neutr Abs (ANC) 8.17 (H) 1.70 - [facility] 6.10 [facility] x10(3)/[facility] LABORATORY Lymphocytes % 10.3 % [facility]ORATORY Lymphocytes Abs 1.1 0.9 - 3.2 [facility] x10(3)/[facility] LABORATORY Monocytes % 7.0 % [facility]ORATORY Monocyte Abs 0.7 0.3 - 0.9 [facility] x10(3)/[facility] LABORATORY Eosinophils % 3.6 % [facility]OR[facility]ORY Eosinophils Abs 0.4 0.0 - 0.4 [facility] x10(3)/[facility] LABORATORY Basophils % 0.5 % [facility]ORATORY Basophils Abs 0.0 0.0 - 0.1 [facility] x10(3)/[facility] LABORATORY Immature Gran % 0.70 % [facility] Comment: Immature granulocytes(IG's)percentage an d absolute count will include metamyelocytes, myelocytes, and promyelo cytes. Blood smears from CBCs yielding IG's will be scanned manually for concor dance. If this scan disagrees with the automated IG or if promyelocytes are not ed, a manual differential will be performed. Melisa Gran Abs 0.07 (H) 0.00 - 0.04 x10(3)/[facility] LABORATORY Specimen Anatomical Collection Method Collection Time Receive d Time (Source) Location / / Volume Laterality Blood specimen 08/08/2017 4:51 AM 018 5:14 (specimen) EST AM EST Resulting Agency Comment Spec In Lab Yonathan Smith MD HEMATOLOGY ORDERABLES Performing Organization Address City/State/[place] [address] (ABNORMAL) Hemogram (08/08/2017 4:51 AM EST) Analysis Performed At Patho logist Time Signature WBC 10.5 (H) 4.0 - 9.5 [facility] x10(3)/[facility] LABORATORY RBC 3.27 (L) 4.58 - [place] RYAN 5.54 [facility] x10(6)/[facility] LABORATORY Hemoglobin 9.3 (L) 13.7 - [facility] 16.5 gm/dL [facility] Hematocrit 30.3 (L) 40.5 - [facility] 48.5 % [facility] MCV 92.7 82.9 - [facility] 93.1 [facility] LABORATORY MCH 28.4 27.5 - [facility] 32.1 pg [facility]ORATORY MCHC 30.7 (L) 32.0 - [facility] 35.7 gm/dL [facility]OR[facility]ORY Platelets 252 145 - 357 [facility] x10(3)/[facility] LABORATORY RDWSD 54.6 (H) 36.0 - [facility] RDWCV 16.2 (H) 11.4 - [facility] 13.8 % [facility] LABORATORY MPV 9.1 7.6 - 12.9 [facility] LABORATORY nRBC % Auto 0.0 % [facility] LABORATORY nRBC Abs Auto 0.000 0.000 - [facility] 0.000 [facility] x10(3)/[facility] LABORATORY Specimen Anatomical Collection Method Collection Time Receive d Time (Source) Location / / Volume Laterality Blood specimen 08/08/2017 4:51 AM 018 5:14 (specimen) EST AM EST Resulting Agency Comment Spec In Lab Yonathan Smith MD HEMATOLOGY ORDERABLES Performing Organization Address City/State/[place] [address] (ABNORMAL) Prothrombin Time (08/08/2017 4:51 AM EST) athologist Signature PT 18.1 (H) 11.8 - 14.0 [facility] LABORATORY INR 1.5 (H) 0.9 - 1.1 [facility] LABORATORY Comment: An [...] Organization Address City/State/ZIP Code Phon e Number [place] [id number] HOSP[address] LAB[address]ORY Drive (ABNORMAL) Basic Metabolic Panel (non-fasting) (08/08/2017 4:51 AM EST) P athologist Signature Glucose Lvl 229 (H) 65 - 199 [facility] mg/dL [facility] LABORATORY Comment: Diabetes: >=200 mg/dL plus symp toms BUN 35 (H) 10 - 20 mg/dL [facility] LABORATORY Creatinine 1.57 (H) 0.80 - 1.50 mg/dL [facility] LABORATORY Sodium 136 135 - 145 mmol/L [facility] LABORATORY Potassium 4.5 3.5 - 5.0 mmol/L [facility]OR[facility] Comment: Please note: ??Patients with WBC >100,00 0 may have falsely elevated Potassium levels. ??For accurate Potassium quantif ication in these patients send serum separator tube (gold top) for subsequent determinations. ??Contact the Clinical Chemistry Laboratory if there are any qu estions. Chloride 94 (L) 98 - 107 mmol/L [facility]OR[facility]ORY CO2 25 22 - 31 mmol/L [facility]OR[facility] Anion Gap 17 (H) 5 - 15 mmol/L [facility] LABORATORY Calcium 7.9 (L) 8.5 - 10.5 mg/dL [facility] LABOR[facility]ORY Estimated GFR 44 (L) >=60 [facility] LAB[facility] Comment: The reported eGFR should be multiplied b y 1.2 for patients. The MDRD is not an appropriate measure o f renal function for patients with body mass extremes or in patients with acute kidney failure. http://[employer]/DHnkdep http://[employer]/DHMCnkf Specimen Anatomical Collection Method Collection Time Receive d Time (Source) Location / / Volume Laterality Blood specimen 08/08/2017 4:51 AM 018 5:14 (specimen) EST AM EST Resulting Agency Comment Spec In Lab Yonathan Smith MD CHEMISTRY ORDERABLES Performing Organization Address City/State/ZIP Code Phon e Number [address] POCT Glucose (08/08/2017 4:20 AM EST) athologist Signature POC Glucose 193 65 - 199 [facility]/dL [facility]ORY Comment: Supplemental ranges: <140 mg/dL before meals <180 mg/dL all other times of the day Specimen Anatomical Collection Method Collection Time Receive d Time (Source) Location / / Volume Laterality Blood specimen 08/08/2017 4:20 AM 018 4:20 (specimen) EST AM EST Yonathan Smith MD POINT OF CARE TEST ORDERABLE S Performing Organization Address City/[facility]/ZIP Code Phon e Number [address] POCT Glucose (08/07/2017 11:11 PM EST) athologist Signature POC Glucose 124 65 - 199 [facility] mg/dL [facility]ORY Comment: Supplemental ranges: <140 mg/dL before meals <180 mg/dL all other times of the day Specimen Anatomical Collection Method Collection Time Receive d Time (Source) Location / / Volume Laterality Blood specimen 08/07/2017 11:11 8 (specimen) PM EST 11:11 PM EST Yonathan Smith MD POINT OF CARE TEST ORDERABLE S Performing Organization Address City/[facility]/ZIP Code Phon e Number [address] (ABNORMAL) APTT (08/07/2017 10:18 PM EST) athologist Signature PTT 114 (H) 25 - 35 sec [facility] LABORATORY Comment: The recommended therapeutic range for fu ll dose, unfractionated heparin at [facility] is 80 ? 114 [...] Address City/State/ZIP Code Phon e Number [address] POCT Glucose (08/07/2017 8:10 PM EST) athologist Signature POC Glucose 140 65 - 199 [facility]dL [facility] LABORATORY Comment: Supplemental ranges: <140 mg/dL before meals <180 mg/dL all other times of the day Specimen Anatomical Collection Method Collection Time Receive d Time (Source) Location / / Volume Laterality Blood specimen 08/07/2017 8:10 PM 018 8:10 (specimen) EST PM EST Yonathan Smith MD POINT OF CARE TEST ORDERABLE S Performing Organization Address City/State/ZIP Code Phon e Number [address] POCT Glucose (08/07/2017 5:27 PM EST) athologist Signature POC Glucose 187 65 - 199 [facility]dL [facility] LABORATORY Comment: Supplemental ranges: <140 mg/dL before meals <180 mg/dL all other times of the day Specimen Anatomical Collection Method Collection Time Receive d Time (Source) Location / / Volume Laterality Blood specimen 08/07/2017 5:27 PM 018 5:27 (specimen) EST PM EST Yonathan Smith MD POINT OF CARE TEST ORDERABLE S Performing Organization Address City/State/[place] [address] POCT Glucose (08/07/2017 3:29 PM EST) athologist Signature POC Glucose 86 65 - 199 [facility] LABORATORY Comment: Supplemental ranges: <140 mg/dL before meals <180 mg/dL all other times of the day Specimen Anatomical Collection Method Collection Time Receive d Time (Source) Location / / Volume Laterality Blood specimen 08/07/2017 3:29 PM 018 3:29 (specimen) EST PM EST Yonathan Smith MD POINT OF CARE TEST ORDERABLE S Performing Organization Address City/State/[place] [address] (ABNORMAL) APTT (08/07/2017 2:50 PM EST) athologist Signature PTT 60 (H) 25 - 35 sec [facility] LABORATORY Comment: The recommended therapeutic range for fu ll dose, unfractionated heparin at [facility] is 80 ? 114 [...] Smith MD HEMATOLOGY ORDERABLES Performing Organization Address City/[facility]/[place]IP [place] [address] (ABNORMAL) POCT Glucose (08/07/2017 2:23 PM EST) athologist Signature POC Glucose 55 (L) 65 - 199 [facility]dL [facility] LABORATORY Comment: Supplemental ranges: <140 mg/dL before meals <180 mg/dL all other times of the day Specimen Anatomical Collection Method Collection Time Receive d Time (Source) Location / / Volume Laterality Blood specimen 08/07/2017 2:23 PM 018 2:23 (specimen) EST PM EST Yonathan Smith MD POINT OF CARE TEST ORDERABLE S Performing Organization Address City/State/ZIP Code Phon e Number [place] [id number] [facility] [address] POCT Glucose (08/07/2017 12:08 PM EST) P athologist Signature POC Glucose 77 65 - 199 [facility]dL [facility] LABORATORY Comment: Supplemental ranges: <140 mg/dL before meals <180 mg/dL all other times of the day Specimen Anatomical Collection Method Collection Time Receive d Time (Source) Location / / Volume Laterality Blood specimen 08/07/2017 12:08 8 (specimen) PM EST 12:08 PM EST Yonathan Smith MD POINT OF CARE TEST ORDERABLE S Performing Organization Address City/State/ZIP Code Phon e Number [address] (ABNORMAL) Differential, Automated (08/07/2017 7:30 AM EST) Patholo gist Method Time Signature Neutrophils % 73.8 % [facility] LABORATORY Neutr Abs (ANC) 7.17 (H) 1.70 - [facility] 6.10 [facility] x10(3)/[facility] LABORATORY Lymphocytes % 12.2 % [facility] LABORATORY Lymphocytes Abs 1.2 0.9 - 3.2 [facility] x10(3)/[facility] LABORATORY Monocytes % 9.0 % [facility] LABORATORY Monocyte Abs 0.9 0.3 - 0.9 [facility] x10(3)/[facility] LABORATORY Eosinophils % 3.9 % [facility] LABORATORY Eosinophils Abs 0.4 0.0 - 0.4 [facility] x10(3)/[facility] LABORATORY Basophils % 0.6 % [facility] LABORATORY Basophils Abs 0.1 0.0 - 0.1 [facility] x10(3)/[facility] LABORATORY Immature Gran % 0.50 % [facility] LABORATORY Comment: [...] Organization Address City/State/[place] [address] (ABNORMAL) Hemogram (08/07/2017 7:30 AM EST) Analysis Performed At Patho logist Time Signature WBC 9.7 (H) 4.0 - 9.5 [facility] x10(3)/[facility] LABORATORY RBC 3.54 (L) 4.58 - [facility] 5.54 [facility] x10(6)/[facility] LABORATORY Hemoglobin 9.9 (L) 13.7 - [facility] 16.5 gm/dL [facility] LABORATORY Hematocrit 32.3 (L) 40.5 - [facility] 48.5 % [facility] LABORATORY MCV 91.2 82.9 - [facility] 93.1 [facility] LABORATORY MCH 28.0 27.5 - [facility] 32.1 pg [facility] LABORATORY MCHC 30.7 (L) 32.0 - [facility] 35.7 gm/dL [facility] LABORATORY Platelets 312 145 - 357 [facility] x10(3)/[facility] LABORATORY RDWSD 53.2 (H) 36.0 - [facility] 45.0 [facility] LABORATORY RDWCV 16.0 (H) 11.4 - [facility] RYAN 13.8 % [facility] LABORATORY MPV 8.9 7.6 - 12.9 [facility] LABORATORY nRBC % Auto 0.0 % [facility] LABORATORY nRBC Abs Auto 0.000 0.000 - [facility]AN 0.000 [facility] x10(3)/[facility] LABORATORY Specimen Anatomical Collection Method Collection Time Receive d Time (Source) Location / / Volume Laterality Blood specimen 08/07/2017 7:30 AM 018 7:45 (specimen) EST AM EST Resulting Agency Comment Spec In Lab Yonathan Smith MD HEMATOLOGY ORDERABLES Performing Organization Address City/State/ZIP Code Phon e Number [facility] [place] [address] (ABNORMAL) Basic Metabolic Panel (non-fasting) (08/07/2017 7:30 AM EST) athologist Signature Glucose Lvl 80 65 - 199 [facility] mg/dL [facility] LABORATORY Comment: Diabetes: >=200 mg/dL plus symp toms BUN 31 (H) 10 - 20 mg/dL [facility] LABORATORY Creatinine 1.22 0.80 - 1.50 mg/dL [facility] LABORATORY Sodium 140 135 - 145 mmol/L [facility] LABORATORY Potassium 4.5 3.5 - 5.0 mmol/L [facility] LABORATORY Comment: Please note: ??Patients with WBC >100,00 0 may have falsely elevated Potassium levels. ??For accurate Potassium quantif ication in these patients send serum separator tube (gold top) for subsequent determinations. ??Contact the Clinical Chemistry Laboratory if there are any qu estions. Chloride 99 98 - 107 mmol/L [facility] LABORATORY CO2 29 22 - 31 mmol/L [facility] LABORATORY Anion Gap 12 5 - 15 mmol/L [facility] LABORATORY Calcium 8.5 8.5 - 10.5 mg/dL [facility] LABORATORY Estimated GFR 59 (L) >=60 [facility] LABORATORY Comment: The reported eGFR should be multiplied b y 1.2 for patients. The MDRD is not an appropriate measure o f renal function for patients with body mass extremes or in patients with acute kidney failure. http://[employer]/DHnkdep http://[employer]/DHMCnkf Specimen Anatomical Collection Method Collection Time Receive d Time (Source) Location / / Volume Laterality Blood specimen 08/07/2017 7:30 AM 018 7:45 (specimen) EST AM EST Resulting Agency Comment Spec In Lab Yonathan Smith MD CHEMISTRY ORDERABLES Performing Organization Address City/[facility]/ZIP [place] [address] POCT Glucose (08/07/2017 7:27 AM EST) athologist Signature POC Glucose 81 65 - 199 [facility] mg/dL [facility] LABORATORY Comment: Supplemental ranges: <140 mg/dL before meals <180 mg/dL all other times of the day Specimen Anatomical Collection Method Collection Time Receive d Time (Source) Location / / Volume Laterality Blood specimen 08/07/2017 7:27 AM 018 7:27 (specimen) EST AM EST Yonathan Smith MD POINT OF CARE TEST ORDERABLE S Performing Organization Address [facility] Phon e Number [address] APTT (08/07/2017 7:04 AM EST) athologist Signature PTT 34 25 - 35 sec [facility] LABORATORY Comment: The recommended therapeutic range for fu ll dose, unfractionated heparin at [facility] is 80 ? 114 [...] Smith MD HEMATOLOGY ORDERABLES Performing Organization Address City/[facility]/ZIP [facility] [address] (ABNORMAL) Prothrombin Time (08/07/2017 7:04 AM EST) athologist Signature PT 17.3 (H) 11.8 - 14.0 [facility] LABORATORY INR 1.4 (H) 0.9 - 1.1 [facility] LABORATORY Comment: An [...] Smith MD HEMATOLOGY ORDERABLES Performing Organization Address City/[facility]/ZIP Code Phon e Number [address] POCT Glucose (08/07/2017 4:03 AM EST) athologist Signature POC Glucose 93 65 - 199 [facility] LABORATORY Comment: Supplemental ranges: <140 mg/dL before meals <180 mg/dL all other times of the day Specimen Anatomical Collection Method Collection Time Receive d Time (Source) Location / / Volume Laterality Blood specimen 08/07/2017 4:03 AM 018 4:03 (specimen) EST AM EST Yonathan Smith MD POINT OF CARE TEST ORDERABLE S Performing Organization Address City/[facility]/ZIP Code Phon e Number [address] POCT Glucose (08/07/2017 12:04 AM EST) athologist Signature POC Glucose 107 65 - 199 [facility] mg/dL [facility] LABORATORY Comment: Supplemental ranges: <140 mg/dL before meals <180 mg/dL all other times of the day Specimen Anatomical Collection Method Collection Time Receive d Time (Source) Location / / Volume Laterality Blood specimen 08/07/2017 12:04 8 (specimen) AM EST 12:04 AM EST Yonathan Smith MD POINT OF CARE TEST ORDERABLE S Performing Organization Address City/State/[place] [address] POCT Glucose (08/06/2017 7:56 PM EST) P athologist Signature POC Glucose 178 65 - 199 [facility] mg/dL [facility] LABORATORY Comment: Supplemental ranges: <140 mg/dL before meals <180 mg/dL all other times of the day Specimen Anatomical Collection Method Collection Time Receive d Time (Source) Location / / Volume Laterality Blood specimen 08/06/2017 7:56 PM 018 7:56 (specimen) EST PM EST Yonathan Smith MD POINT OF CARE TEST ORDERABLE S Performing Organization Address City/State/[place] [address] [facility] [address] TcPO2 (08/06/2017 2:32 PM EST) Component Value Ref Test Analysis Performed At Patholo gist Range Method Time Signature VB Text Department: Vascular Surgery Lab VASCUBASE Report Patient: [id number] (GREGORY HOANG) CPT: 8354559 ICD10: I99.8 Referring Physician: YONATHAN SMITH ?? [...] to hold) 0800 (Given - Provider: Dory Troung RN) 25 mg, Oral, 2 TIMES DAILY, [...]
Routine documented in this encounter Care Teams Cage Operator Relationship Specialty Start Date End Date Lovely Vicente MD PCP - General 04/16/[address] [place] [address] documented as of this encounter
--- OUTSIDE RECORDS SUMMARY | 2022-02-13 11:14 | XMS_ITS | Encounter Summary ---
:1945 [place] [address] Care Team Providers Name Role Phone Lovely Vicente MD Primary Care Provider Reason for Visit Auth/Cert Specialty Diagnoses / Procedures Referred By Contact Refer red To Contact Diagnoses Critical lower limb ischemia CELLULITIS RT FOOT Procedures EMERGENCY Referral ID Status Reason Start Date Expiration Date Visits Requ ested Visits Authorized [id number] 1 1 Encounter Details Date Type Department Care Team Description 08/09/2017 Anesthesia Event Main Operating Room Daniele Lizama MD [facility] [place] [address] [facility] Rob Jones MD [facility] [place] [address] [place] [address] Anesthesia Record Procedure Summary Procedure Name [...] Knowles, Dory arm), right; VAMSI Rios, RN [id number]-[id number] catheter system; 20 gauge; 08/16/17; 1047 PIV 07/29/17; 1413; median 07/29/17 1413 by 08/16/17 1047 by cubital vein (antecubital Magdalene Hickey Williams, Dory fossa), left; VAMSI Wyatt, RN bjej-fuz-brrsgs catheter system; 20 gauge; 08/16/17; 1047 PIV 08/06/17; 1742; cephalic 08/06/17 1742 by 0920 by vein (lateral side of Taylor Laureano Danah y, Caitlyn C, arm), right; VAMSI BONNER sffl-gzu-rgtrep catheter system; 22 gauge, 1 in length; Eliseo LAUREANO RN VAS; distraction, intradermal injection, tolerated well, appears comfortable; 0; 08/16/17; 0920 Wound 08/07/17; 1335; knee; 08/07/17 1335 by 08/16/17 1047 by laceration; wound occured Barabra Albert iams, Dory WIRE ROPE FABRICATION SUPERVISOR; 08/16/17; 1047 VAMSI Alonzo, RN PIV 08/07/17; 1734; cephalic 08/07/17 1734 by 1047 by vein (lateral side of Kendrick, Carlos W, Willia ms, Dory arm), left; MARCIE Wyatt RN jbfs-nbj-ahjjpd catheter system; 22 gauge; distraction, intradermal injection, [...] Santillan MD - 08/09/2017 9:01 AM EST [facility] Department of Anesthesiology Post-procedure Note Patient: Don Fatima Procedure Summary Date Anesthesia Start Anesthesia Stop Room / Location 08/09/17 0802 0901 [facility] OR 14 / [facility] MAIN OR Procedure Diagnosis Surgeon Responsible Provider AMPUTATION, 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 Nerve [...] SETUP performed by Manny Mcknight MD at [facility] MAIN OR ??? PRO CABG, ARTERIAL, SINGLE N/A 07/07/2017 @CABG, USING ARTERIAL GRAFT;SINGLE ARTERIAL GRAFT (WRVU 33.75) performed by Yuan Retana MD at [facility] MAIN OR ??? PRO CABG, ARTERY-VEIN, TWO N/A 07/07/2017 @CABG, TWO VENOUS GRAFTS & ARTERIAL GRAFT (WRVU 7.93) performed by Yuan Retana MD at [facility] MAIN OR ??? PRO COLONOSCOPY, REMV LESN, SNARE 01/16/2014 COLONOSCOPY, POLYPECTOMY, REMOVAL LESION BY SNARE performed by Nohemi Jaimes MD at [facility] ENDOSCOPY ??? PRO ENDOSCOPY W/VIDEO-ASST VEIN HARVEST, CABG Right 07/07/2017 ENDOSCOPIC HARVEST VEIN(S) FOR CABG (WRVU 0.31) performed by Yuan Retana MD at [facility] MAIN OR ??? PRO THYROIDECTOMY 03/28/2013 THYROIDECTOMY, TOTAL OR COMPLETE performed by Manny Mcknight MD at [facility] MAIN OR Social History Substance Use Topics [...] adequate IV access. Brody Santillan MD PGY-2, Cashier Receptionist Pager #[phone] Anesthesiology Staff (Dewhirst): Pre-op summary note as [...] [facility] Cardiology Dept [place], [place] [address] (Wo rk) 03/26/2022 Office Visit Cardiology Vitaliy Nobles MD [facility] ER CARDIOLOGY [place], [place] [address] (Wo rk) documented as of [...] Length: 10 cm Gauge: 21 Needle Type: F-afwbm-xqvxb Medication injection made in crementally with aspirations. [...] Procedure) documented in this encounter Care Teams Senior Cytogenetics Laboratory Director Relationship Specialty Start Date End Date Lovely Vicente MD PCP - General 04/16/[address] [place] [address] documented as of this encounter
--- OUTSIDE RECORDS SUMMARY | 2022-02-13 11:14 | XMS_ITS | Encounter Summary ---
:1945 Author Organization [facility] [place] [address] Care Team Providers Name Role Phone Lovely Vicente MD Primary Care Provider Reason for Visit Auth/Cert Specialty Diagnoses / Procedures Referred By Contact Refer red To Contact Diagnoses Critical lower limb ischemia CELLULITIS RT FOOT Procedures EMERGENCY Referral ID Status Reason Start Date Expiration Date Visits Requ ested Visits Authorized [id number] 1 1 Encounter Details Date Type Department Care Team Description 08/09/2017 Surgery Main Operating Room Yonathan Smith AM PUTATION, Mary Hitchcock MD TRANSMETATARSAL ([facility] 12.71) [facility] DR [place] [address] [place] [address] [phone] Social History Tobacco Use Types Packs/Day Years [...] 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 Patient [...] Dorsalis Pedis (Ankle) Artery ?132 ? 0.94 ??Flagler-Biphasic ? Posterior Tibial (Ankle) Artery ??154 ? 1.10 ??Flagler-Biphasic ? Fourth Toe ? 67 ?0.48 ?? [...] foot. Discharge Conditions/Prognosis: Good Discharge to: [facility] Rehab Discharge Medications: Your Medications New [...] For any problems or questions please call [phone] ZELDA Smith, wood milling machine tender Nurse Clinician For issues on weeknights after 5pm and weekends please call [phone] and ask for the Vascular Fellow transportation maintenance worker. General Instructions None Future Appointments and Orders Future Appointments Provider Department Dept Phone 08/26/2017 4:00 PM Aurelia Rivera PA Vascular Surgery at [place] [phone] 09/07/2017 3:00 PM LAB, THREE L Lab 3L [facility] [phone] 09/07/2017 4:00 PM Luz Prescott MD Endocrinology at [place] [phone] 09/09/2017 8:00 AM Barbra Soares APRN Pain Management at [facility] [place] [phone] Please bring a list of your current [...] For any problems or questions please call [phone] ZELDA Smith, wood milling machine tender Nurse Clinician For issues on weeknights after 5pm and weekends please call [phone] and ask for the Vascular Fellow transportation maintenance worker. documented in this encounter Medications at Time [...] of Care Management Discharge Note Patient Destination: [facility] ([facility]) [address] [id number] Transportation: with (at bedside) Time of Discharge: by 12 noon Level of Care: swing Patient Aware: yes Family Notified: yes Md to call report to: Yissel Quintero TEST DRIVER already called RN to call report to: [phone] Shirin Wolf Office of Care Management Pager [phone] Shirin Wolf RN - 08/16/2017 10:50 AM EST [facility] has offered pt swing bed. Pt and accept bed. will transport via car. TEST DRIVER Yissel Quintero aware; d/c paperwork will be completed by 12 noon. [facility] requests pt arrival by 1400 today; TEST DRIVER, RN, and family aware. TEST DRIVER called [facility] and was told that they prefer pt to arrive with wound vac dressing applied but clamped. TEST DRIVER applied new wound vac dressing. RN has [facility] number to call report. PASSR completed; TEST DRIVER paged to request provider signature in highlighted space. Indigo from [facility] notified via email that home wound vac now cancelled; [facility] has picked up from room and order cancelled. Packet started and provided to community health nurse supervisor. Medicare important message explained to patient, patient signed. Copy provided to patient and signature page to OCM for inclusion in pt EMR. L Radha Powers Yoselin - 08/16/2017 10:34 AM EST Office of Care Management/Hydraulic Riveter Patient Name: Gregory Hoang : 1945 Patient has been offered a swing bed at [facility]. The patient will be transported by private transportation. No MD to MD report necessary Please call Nursing Report to [phone], ask for school health aide. Info to accompany patient: Narcotic Prescriptions Copies of Medication Administration Records and IV sheets for past 10 days. Plan: Hydraulic Riveter will be available to the patient and Solid Tire Tuber Machine Operator-RN and/or Lime Burner for further assistance. Patient will be discharged to: [address] [id number] Radha Powers, Hydraulic Riveter Mira Truong, VAMSI - 08/15/2017 10:05 PM EST [address] Flores to ask if he wanted to hold metoprolol dose. BP 95/58. OK to hold this dose Courtney Brito - 08/15/2017 3:26 PM EST Office of Care Management(OCM)/Hydraulic Riveter(RS)/ D/C Planning re : Patient is medically ready for d/c today. RS has been in contact with [facility] to see if they could offer a bed. [facility] is still reviewing the case and need their MD to review chart prior to accepting or declining. OCM team needs to check in with [facility] tomorrow to check on status. 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 Vac in place. Rehab referrals ongoing. Can ambulate in hallway. Change VAC at bedside today. Naty Colindres RN - 08/14/2017 1:33 PM EST Patient Name: Gregory Hoang Patient Age: 72 y.o. Birthdate: 1945 Admit date: 08/06/2017 Attending Physician: Yonathan Smith MD We want him to go to a place for intensive therapy and not at a [facility] where he will be just sitting there and not getting any therapy. . Contacted by direct care RN, who said that patient and would like information about patient's referral to: [facility] PHONE: [phone] FAX: [phone] CM spoke with RS who said that [...] would be accepted to acute rehab at [facility] as Dr. Smith had recommended . [...] rehab. Await recommendations from PT. Covering pager #[phone]. 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 Commercial Shrimping Captain Kaitlin Saha, RN Pager #[phone] Payam Rosales - 08/13/2017 2:37 PM EST Fitness Studies Teacher Encounter Note Patient Name: Gregory Hoang : [id number] MR#: [id number] Admit Date: 08/06/2017 1:41 PM Hospital Day 7 days Narrative: Visited to introduce and assess acceptance of Fitness Studies Teacher services. Pt was awake, alert, oriented and in chair and family was there. Assessment:Patient coping positively with stresses of illness/hospitalization at this time. Pt says that he is hoping to get better and his family was there. Pt says that he has family care and supportand taking one day at time. Intervention and Outcome: Provided emotional support and encouraging presence. 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 A letter describing our affiliations was reviewed with them and theywere educated about their right to choose where referrals are placed. Patient requests referral to [facility] [employer]. PHONE: [phone] FAX: [phone]. And Home NPWT (Negative Pressure Wound Therapy) aka wound vac device made available to pt. Serial # confirmed. Reviewed [facility] Proof of Delivery/Assignment of Benefits Statement(POD/AOB) Form w patient or authorized agent signing on behalf of patient. Copy of POD/AOB provided to pt and other copy faxed to [employer] @ fax# [phone] Expected date of discharge: 08/12/2017. 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 Address: [address] [place] [address] [place] [address] (home) Mobile: Telephone Information: Referring Provider: No [...] SETUP performed by Manny Mcknight MD at [facility] MAIN OR ??? PRO CABG, ARTERIAL, SINGLE N/A 07/07/2017 @CABG, USING ARTERIAL GRAFT;SINGLE ARTERIAL GRAFT (WRVU 33.75) performed by Yuan Retana MD at [facility] MAIN OR ??? PRO CABG, ARTERY-VEIN, TWO N/A 07/07/2017 @CABG, TWO VENOUS GRAFTS & ARTERIAL GRAFT (WRVU 7.93) performed by Yuan Retana MD at [facility] MAIN OR ??? PRO COLONOSCOPY, REMV LESN, SNARE 01/16/2014 COLONOSCOPY, POLYPECTOMY, REMOVAL LESION BY SNARE performed by Nohemi Jaimes MD at [facility] ENDOSCOPY ??? PRO ENDOSCOPY W/VIDEO-ASST VEIN HARVEST, CABG Right 07/07/2017 ENDOSCOPIC HARVEST VEIN(S) FOR CABG (WRVU 0.31) performed by Yuan Retana MD at [facility] MAIN OR ??? 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 Heparin gtt continues to run. Pt [...] of : 1945 AGE 72 y.o. Address: [address] [place] [address] [place] [address] (home) Mobile: Telephone Information: Referring Provider: No [...] SETUP performed by Manny Mcknight MD at [facility] MAIN OR ??? PRO CABG, ARTERIAL, SINGLE N/A 07/07/2017 @CABG, USING ARTERIAL GRAFT;SINGLE ARTERIAL GRAFT (WRVU 33.75) performed by Yuan Retana MD at [facility] MAIN OR ??? PRO CABG, ARTERY-VEIN, TWO N/A 07/07/2017 @CABG, TWO VENOUS GRAFTS & ARTERIAL GRAFT (WRVU 7.93) performed by Yuan Retana MD at [facility] OR ??? PRO COLONOSCOPY, REMV LESN, SNARE 01/16/2014 COLONOSCOPY, POLYPECTOMY, REMOVAL LESION BY SNARE performed by Nohemi Jaimes MD at [facility] ENDOSCOPY ??? PRO ENDOSCOPY W/VIDEO-ASST VEIN HARVEST, CABG Right 07/07/2017 ENDOSCOPIC HARVEST VEIN(S) FOR CABG (WRVU 0.31) performed by Yuan Retana MD at [facility] MAIN OR ??? PRO THYROIDECTOMY 03/28/2013 THYROIDECTOMY, TOTAL OR COMPLETE performed by Manny Mcknight MD at [facility] MAIN OR Date/Procedure Meds given/comments No [...] taking: Reported on 08/04/2017 07/27/17 Carlos Alberto Redyd MD traMADol (ULTRAM) 50 mg Tablet Take 1 tablet by mouth every 6 hours as needed for Pain. 07/27/17 Carlos Alberto Reddy MD warfarin (COUMADIN) 2.5 mg Tablet Take 1 tablet by mouth daily. 07/20/17 Arik Clement MD LANTUS SOLOSTAR pen Inject 20 Units subcutaneously nightly. Patient taking differently: Inject 15 Units subcutaneously nightly. 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 Unsuccessful draw attempt, another clinical laboratory technician will come [facility] to collect blood for PTT test. 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 Vascular resident transportation maintenance worker and will forward result to the team prior to rounds. 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 Patient [...] SETUP performed by Manny Mcknight MD at [facility] MAIN OR ??? PRO CABG, ARTERIAL, SINGLE N/A 07/07/2017 @CABG, USING ARTERIAL GRAFT;SINGLE ARTERIAL GRAFT (WRVU 33.75) performed by Yuan Retana MD at [facility] MAIN OR ??? PRO CABG, ARTERY-VEIN, TWO N/A 07/07/2017 @CABG, TWO VENOUS GRAFTS & ARTERIAL GRAFT (WRVU 7.93) performed by Yuan Retana MD at [facility] MAIN OR ??? PRO COLONOSCOPY, REMV LESN, SNARE 01/16/2014 COLONOSCOPY, POLYPECTOMY, REMOVAL LESION BY SNARE performed by Nohemi Jaimes MD at [facility] ENDOSCOPY ??? PRO ENDOSCOPY W/VIDEO-ASST VEIN HARVEST, CABG Right 07/07/2017 ENDOSCOPIC HARVEST VEIN(S) FOR CABG (WRVU 0.31) performed by Yuan Retana MD at [facility] MAIN OR ??? PRO THYROIDECTOMY 03/28/2013 THYROIDECTOMY, TOTAL OR COMPLETE performed by Manny Mcknight MD at [facility] MAIN OR Functional Status/Social Hx: Quit [...] left blue toes with CTA showing R FOOD PRESERVATION SCIENTIST pseudoaneurysm (now thrombosed) and occluded ATs bilaterally. [...] 2.5x80 5. Completion RLE angiogram 6. L FOOD PRESERVATION SCIENTIST angiogram 7. 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 - L FOOD PRESERVATION SCIENTIST angriogram demonstrated: High femoral bifurcation over the proximal half of the femoral head. L FOOD PRESERVATION SCIENTIST access in the distal L FOOD PRESERVATION SCIENTIST. - Closure device: Mynx Technical Procedure: The [...] for a 45cm 5F Destination. V18 and [place] and QuickCross catheters were used to select [...] 5F. A stationed picture of the L FOOD PRESERVATION SCIENTIST was performed as the patient was noted to have a very high bifurcation. Access appeared in the distal R FOOD PRESERVATION SCIENTIST. Closure and sheath removal was performed with [...] PM EST 1440 report called to 5 [place] nurse Tessa RN documented in this encounter [...] pt and pt's spouse. Discharge to [facility]. Goal: Individualization & Mutuality Outcome: Outcome [...] sit/sit to supine -- Bed Mobility Goal, [place] Level independent -- Bed Mobility Goal, Date [...] days -- Transfer Training Goal, Activity Type ala-xx-xwium/ukuzn-dg-udb -- Transfer Train Goal, [place] Level conditional independence -- Transfer Train Goal, [...] call cabello within reach, Hourly rounding by RN/PEER HEALTH PROMOTER. Bed alarm / Chair alarm. Patient-specific fall [...] Operative Note Patient Name: Gregory Hoang : [id number] MR#: [id number] Case Date: 08/09/2017 Surgeon: Surgeon(s) and Role: [...] 2.5x80 5. Completion RLE angiogram 6. L FOOD PRESERVATION SCIENTIST angiogram 7. Mynx closure Precautions/Restrictions: fall, sternal [...] feet/ bed -> bathroom). Anticipated Discharge Disposition: [facility] facility, other (see comments) (or swing bed) Pager: [phone] BASSAM ELIAS, PT 08/14/2017 Inpatient Physical Therapy [...] to Achieve by discharge Gait Training Goal, [place] Level conditional independence;set up required Gait Training [...] facilities over the weekend except for [facility]. CM spoke with [facility] CM Drea Sandhu, VAMSI who said that they do not anticipate any beds over the weekend. Reviewed with patient/ that they need to be aware that patient will need to take the first bed offered at the facilities that they make referrals to. Their choices are: 1- [facility] PHONE: [phone] FAX: [phone] 2- [facility] ([facility]) [address] [place] [address] 3- [facility]) [address] [place] [address] I have discussed Medicare/Private Insurance [...] RS/CM on Wednesday to follow-up. Covering pager #[phone] for today. Plan of Care - Henrique [...] with additional findings of pseudoaneurysm on R FOOD PRESERVATION SCIENTIST and bilateral anterior tibial artery occlusions. Was [...] an outpatient once discharged. Have patient call [phone] to set up an appointment. Follow-up: Dermatology will sign-off for now. Please do not hesitate to contact us if you have any questions orconcerns. Impression and Recommendations discussed with primary team on 08/13/2017. Karo Henderson MD Resident in Dermatology Section of Dermatology, Department of Surgery [facility] Pager [phone] Patient seen and evaluated with staff Wire Weaving Loom Setter: Halima Cordero MD Section of Dermatology [facility] Level of Resident Supervision: Direct Supervision (The [...] I agree with them as documented. HALIMA COREDRO MD Staff Physician Plan of Care - [...] Outcome: Ongoing (Interventions Implemented as Appropriate) 08/12/17 5086 Coping/Psychosocial Plan Of Care Reviewed With patient;spouse [...] 2.5x80 5. Completion RLE angiogram 6. L FOOD PRESERVATION SCIENTIST angiogram 7. Mynx closure Active Non-Hospital Problems [...] home with home health ([facility] PT[facility]OT) Pager: [phone] YASIR TELLO OT 08/12/2017 Occupational Therapy Rehabilitation [...] 2.5x80 5. Completion RLE angiogram 6. L FOOD PRESERVATION SCIENTIST angiogram 7. Mynx closure Past Medical History: [...] with 24/7 assistance and maximal services) Pager: [phone] NICHOLAS MORA, PT 08/12/2017 Physical Therapy Rehabilitation [...] sit/sit to supine -- Bed Mobility Goal, [place] Level independent -- Bed Mobility Goal, Outcome Achieved -- goal ongoing Goal: Gait Training Goal Stand Alone Therapy Goal Outcome: Ongoing (Interventions Implemented as Appropriate) 08/11/17 1310 08/12/17 1510 Gait Training Goal Gait Training Goal, Date Established 08/11/17 -- Gait Training Goal, Time to Achieve 5 - 7 days -- Gait Training Goal, [place] Level conditional independence -- Gait Training Goal, [...] days -- Transfer Training Goal, Activity Type xwx-gu-fqcdo/ctkny-yb-llu -- Transfer Train Goal, [place] Level conditional independence -- Transfer Training Goal, [...] Operative Note Patient Name: Gregory Hoang : [id number] MR#: [id number] Case Date: 08/11/2017 Surgeon: Surgeon(s) and Role: [...] 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 Completion RLE angiogram 6. L FOOD PRESERVATION SCIENTIST angiogram 7. Mynx closure He is very [...] Anticipated Discharge Disposition: inpatient rehabilitation facility Pager: [phone] LAWRENCE GONZALEZ, PT 08/11/2017 Physical Therapy Rehabilitation [...] to sit/sit to supine Bed Mobility Goal, [place] Level independent Goal: Gait Training Goal Stand Alone Therapy Goal Outcome: Ongoing (Interventions Implemented as Appropriate) 08/11/17 1310 Gait Training Goal Gait Training Goal, Date Established 08/11/17 Gait Training Goal, Time to Achieve 5 - 7 days Gait Training Goal, [place] Level conditional independence Gait Training Goal, Assist [...] 7 days Transfer Training Goal, Activity Type owl-as-urgil/bmkrl-cy-ndx Transfer Train Goal, [place] Level conditional independence Plan of David DelloAnnetta [...] call cabello within reach, Hourly rounding by RN/PEER HEALTH PROMOTER. Bed alarm / Chair alarm. ? Patient-specific [...] Advance Care Planning: on file Kisha Hoang [facility] [phone] Current Coping/Education/Information Needs: pt and spouse state [...] Health/Prescription Coverage: Primary Insurance: MEDICARE Secondary Insurance: [employer] [place] Prescription Coverage: See above Preferred Pharmacy: [facility] Other: N/A Primary Care Provider: Lovely Vicente MD [phone] Patient/Caregiver Goals of Treatment: Patient plans to return home when medically ready Potential Needs for Transition of Care: Rehab/SNF: N/A Home Health: [facility]. DME: pt has a cane [...] of care planning. Kaitlin Saha RN Pager: [phone] Plan of Care - Melba Jaramillo RN [...] Overview Goal: Plan of Care Review 08/08/17 2004 Coping/Psychosocial Plan Of Care Reviewed With patient [...] call cabello within reach, Hourly rounding by RN/PEER HEALTH PROMOTER. Bed alarm / Chair alarm. Patient-specific fall prevention interventions for sensory deficits provided, if applicable: [X] Yes [facility]PG GOAL OUTCOME EVALUATION: Goal: Fall Prevention-Safe Patient Handling Outcome: Ongoing (Interventions Implemented as Appropriate) 08/06/17 1700 08/06/17199908/07/17 8284 Positioning Body Position -- up in chair [...] at bedside and MD TEAM Carrying pager [phone] contacted (via Radio page) and notified of [...] Office Visit Cardiology Liz Poole PA [facility] er Cardiology Dept [place], [place] [address] (Wo rk) 03/26/2022 Office Visit Cardiology Vitaliy Nobles MD [facility] ER CARDIOLOGY [place], [place] [address] (Wo rk) documented as of [...] Signature POC Glucose 160 65 - 199 [facility] mg/dL [facility] Comment: Supplemental ranges: <140 mg/dL before meals <180 mg/dL all other times of the day Specimen Anatomical Collection Method Collection Time Receive d Time (Source) Location / / Volume Laterality Blood specimen 08/16/2017 7:28 AM 018 7:28 (specimen) EST AM EST Yonathan Smith MD POINT OF CARE TEST ORDERABLE S Performing Organization Address City/State/[place] [address] (ABNORMAL) Differential, Automated (08/16/2017 5:08 AM EST) Patholo gist Method Time Signature Neutrophils % 73.9 % [facility] Neutr Abs (ANC) 5.37 1.70 - [facility] 6.10 [facility] x10(3)/[facility] LABORATORY Lymphocytes % 10.1 % [facility] Lymphocytes Abs 0.7 (L) 0.9 - 3.2 [facility] x10(3)/[facility] LABORATORY Monocytes % 10.1 % [facility] Monocyte Abs 0.7 0.3 - 0.9 [facility] x10(3)/[facility] LABORATORY Eosinophils % 5.1 % [facility] Eosinophils Abs 0.4 0.0 - 0.4 [facility] x10(3)/[facility] LABORATORY Basophils % 0.4 % [facility] Basophils Abs 0.0 0.0 - 0.1 [facility] x10(3)/[facility] LABORATORY Immature Gran % 0.40 % [facility] [...] 0.00 - 0.04 x10(3)/[facility] LABORATORY Specimen Anatomical Collection Method Collection Time Receive d Time (Source) Location / / Volume Laterality Blood specimen 08/16/2017 5:08 AM 018 5:20 (specimen) EST AM EST Resulting Agency Comment Spec In Lab Yonathan Smith MD HEMATOLOGY ORDERABLES Performing Organization Address City/State/[place] [address] (ABNORMAL) Hemogram (08/16/2017 5:08 AM EST) Analysis Performed At Patho logist Time Signature WBC 7.3 4.0 - 9.5 [facility] x10(3)/[facility] LABORATORY RBC 3.36 (L) 4.58 - [facility] 5.54 [facility] x10(6)/[facility] LABORATORY Hemoglobin 9.7 (L) 13.7 - [facility] 16.5 gm/dL [facility] Hematocrit 30.3 (L) 40.5 - [facility] 48.5 % [facility] MCV 90.2 82.9 - BARBARA OLIVASCK 93.1 [facility] LABORATORY MCH 28.9 27.5 - BARBARA DAVIS 32.1 pg [facility] MCHC 32.0 32.0 - [place]BAR[facility] DAVIS 35.7 gm/dL [facility] Platelets 282 145 - 357 [facility] x10(3)/[facility] [place] LABORATORY RDWSD 53.9 (H) 36.0 - BARBARA DAVIS 45.0 [facility] LABORATORY RDWCV 16.5 (H) 11.4 - BARBARA RYAN 13.8 % [facility] LABORATORY MPV 9.0 7.6 - 12.9 [facility] LABORATORY nRBC % Auto 0.0 % [facility] LABORATORY nRBC Abs Auto 0.000 0.000 - BARBARA ZHAORYAN 0.000 [facility] x10(3)/[facility] LABORATORY Specimen Anatomical Collection Method Collection Time Receive d Time (Source) Location / / Volume Laterality Blood specimen 08/16/2017 5:08 AM 018 5:20 (specimen) EST AM EST Resulting Agency Comment Spec In Lab Yonathan Smith MD HEMATOLOGY ORDERABLES Performing Organization Address City/State/[place] [address] (ABNORMAL) Basic Metabolic Panel (non-fasting) (08/16/2017 5:08 AM EST) P athologist Signature Glucose Lvl 141 65 - 199 [facility] mg/dL [facility] LABORATORY Comment: Diabetes: >=200 mg/dL plus symp toms BUN 29 (H) 10 - 20 mg/dL [facility] LABORATORY Creatinine 1.25 0.80 - 1.50 mg/dL [facility] LABORATORY Sodium 140 135 - [...] estions. Chloride 99 98 - 107 mmol/L [facility] LABORATORY CO2 28 22 - 31 mmol/L [facility] LABORATORY Anion Gap 13 5 - 15 mmol/L [facility] LABORATORY Calcium 8.7 8.5 - 10.5 mg/dL [facility] LABORATORY Estimated GFR 57 (L) >=60 [facility] LABORATORY Comment: The reported eGFR should be multiplied b y 1.2 for patients. The MDRD is not an appropriate measure o f renal function for patients with body mass extremes or in patients with acute kidney failure. http://[email or web address] [email or web address]/DHMCnkf Specimen Anatomical Collection Method Collection Time Receive d Time (Source) Location / / Volume Laterality Blood specimen 08/16/2017 5:08 AM 018 5:20 (specimen) EST AM EST Resulting Agency Comment Spec In Lab Yonathan Smith MD CHEMISTRY ORDERABLES Performing Organization Address City/State/[place] [address] (ABNORMAL) Prothrombin Time (08/16/2017 5:08 AM EST) P athologist Signature PT 25.2 (H) 11.8 - 14.0 [facility] LABORATORY INR 2.3 (H) 0.9 - 1.1 [facility] LABORATORY Comment: An INR <2.0 [...] Organization Address City/State/ZIP Code Phon e Number [address] POCT Glucose (08/16/2017 4:09 AM EST) athologist Signature POC Glucose 147 65 - 199 BARBARA RYAN mg/dL [facility] LABORATORY Comment: Supplemental ranges: <140 mg/dL before meals <180 mg/dL all other times of the day Specimen Anatomical Collection Method Collection Time Receive d Time (Source) Location / / Volume Laterality Blood specimen 08/16/2017 4:09 AM 018 4:09 (specimen) EST AM EST Yonathan Smith MD POINT OF CARE TEST ORDERABLE S Performing Organization Address City/[facility]/ZIP Code Phon e Number [address] POCT Glucose (08/15/2017 11:56 PM EST) athologist Signature POC Glucose 176 65 - 199 BARBARA ZHAORYAN mg/dL [facility] LABORATORY Comment: Supplemental ranges: <140 mg/dL before meals <180 mg/dL all other times of the day Specimen Anatomical Collection Method Collection Time Receive d Time (Source) Location / / Volume Laterality Blood specimen 08/15/2017 11:56 8 (specimen) PM EST 11:56 PM EST Yonathan Smith MD POINT OF CARE TEST ORDERABLE S Performing Organization Address City/[facility]/[place]IP [place] [address] POCT Glucose (08/15/2017 8:05 PM EST) athologist Signature POC Glucose 136 65 - 199 BARBARA RYAN mg/dL [facility] LABORATORY Comment: Supplemental ranges: <140 mg/dL before meals <180 mg/dL all other times of the day Specimen Anatomical Collection Method Collection Time Receive d Time (Source) Location / / Volume Laterality Blood specimen 08/15/2017 8:05 PM 018 8:05 (specimen) EST PM EST Yonathan Smith MD POINT OF CARE TEST ORDERABLE S Performing Organization Address City/State/[place] [address] (ABNORMAL) POCT Glucose (08/15/2017 4:50 PM EST) athologist Signature POC Glucose 232 (H) 65 - 199 [facility] RYAN mg/dL [facility] LABORATORY Comment: Supplemental ranges: <140 mg/dL before meals <180 mg/dL all other times of the day Specimen Anatomical Collection Method Collection Time Receive d Time (Source) Location / / Volume Laterality Blood specimen 08/15/2017 4:50 PM 018 4:50 (specimen) EST PM EST Yonathan Smith MD POINT OF CARE TEST ORDERABLE S Performing Organization Address City/State/ZIP Code Phon e Number [address] POCT Glucose (08/15/2017 12:04 PM EST) athologist Signature POC Glucose 135 65 - 199 [facility] RYAN mg/dL [facility] LABORATORY Comment: Supplemental ranges: <140 mg/dL before meals <180 mg/dL all other times of the day Specimen Anatomical Collection Method Collection Time Receive d Time (Source) Location / / Volume Laterality Blood specimen 08/15/2017 12:04 8 (specimen) PM EST 12:04 PM EST Yonathan Smith MD POINT OF CARE TEST ORDERABLE S Performing Organization Address City/State/ZIP Code Phon e Number [address] POCT Glucose (08/15/2017 7:36 AM EST) athologist Signature POC Glucose 124 65 - 199 [facility] RYAN mg/dL [facility] LABORATORY Comment: Supplemental ranges: <140 mg/dL before meals <180 mg/dL all other times of the day Specimen Anatomical Collection Method Collection Time Receive d Time (Source) Location / / Volume Laterality Blood specimen 08/15/2017 7:36 AM 018 7:36 (specimen) EST AM EST Yonathan Smith MD POINT OF CARE TEST ORDERABLE S Performing Organization Address City/State/[place] [address] (ABNORMAL) Differential, Automated (08/15/2017 6:22 AM EST) Patholo gist Method Time Signature Neutrophils % 76.1 % [facility] LABORATORY Neutr Abs (ANC) 6.62 (H) 1.70 - [facility] 6.10 [facility] x10(3)/[facility] LABORATORY Lymphocytes % 9.3 % [facility] LABORATORY Lymphocytes Abs 0.8 (L) 0.9 - 3.2 [facility] x10(3)/[facility] LABORATORY Monocytes % 9.4 % [facility] LABORATORY Monocyte Abs 0.8 0.3 - 0.9 [facility] x10(3)/[facility] LABORATORY Eosinophils % 4.0 % [facility] LABORATORY Eosinophils Abs 0.4 0.0 - 0.4 [facility] x10(3)/[facility] LABORATORY Basophils % 0.6 % [facility] LABORATORY Basophils Abs 0.0 0.0 - 0.1 [facility] x10(3)/[facility] LABORATORY Immature Gran % 0.60 [...] Gran Abs 0.05 (H) 0.00 - 0.04 x10(3)/[facility] LABORATORY Specimen Anatomical Collection Method Collection Time Receive d Time (Source) Location / / Volume Laterality Blood specimen 08/15/2017 6:22 AM 018 6:33 (specimen) EST AM EST Resulting Agency Comment Spec In Lab Yonathan Smith MD HEMATOLOGY ORDERABLES Performing Organization Address City/State/[place] [address] (ABNORMAL) Hemogram (08/15/2017 6:22 AM EST) Analysis Performed At Path logist Time Signature WBC 8.7 4.0 - 9.5 [facility] x10(3)/[facility] [place] LABORATORY RBC 3.21 (L) 4.58 - BARBARA ZHAORYAN 5.54 [facility] x10(6)/[facility] LABORATORY Hemoglobin 9.1 (L) 13.7 - [facility] 16.[facility] gm/dL [facility] LABORATORY Hematocrit 29.0 (L) 40.5 - [facility] 48.5 % [facility] LABORATORY MCV 90.3 82.9 - [facility] 93.1 [facility] LABORATORY MCH 28.3 27.5 - [facility] 32.1 pg [facility] LABORATORY MCHC 31.4 (L) 32.0 - [facility] 35.7 gm/dL [facility] LABORATORY Platelets 254 145 - 357 [facility] x10(3)/[facility] [place] LABORATORY RDWSD 53.9 (H) 36.0 - [facility] 45.0 [facility] LABORATORY RDWCV 16.3 (H) 11.4 - [facility] 13.8 % [facility] LABORATORY MPV 8.8 7.6 - 12.9 [facility] LABORATORY nRBC % Auto 0.0 % [facility] LABORATORY nRBC Abs Auto 0.000 0.000 - [facility] 0.000 [facility] x10(3)/[facility] LABORATORY Specimen Anatomical Collection Method Collection Time Receive d Time (Source) Location / / Volume Laterality Blood specimen 08/15/2017 6:22 AM 018 6:33 (specimen) EST AM EST Resulting Agency Comment Spec In Lab Yonathan Smtih MD HEMATOLOGY ORDERABLES Performing Organization Address City/State/[place] [address] (ABNORMAL) Basic Metabolic Panel (non-fasting) (08/15/2017 6:22 AM EST) P athologist Signature Glucose Lvl 118 65 - 199 [facility] mg/dL [facility] LABORATORY Comment: Diabetes: >=200 mg/dL plus symp toms BUN 27 (H) 10 - 20 mg/dL [facility] LABORATORY Creatinine 1.12 0.80 - 1.50 mg/dL [facility] LABORATORY Sodium 138 135 - 145 mmol/L [facility] LABORATORY Potassium 4.6 3.5 - 5.0 mmol/L [facility] LABORATORY Comment: Please note: ??Patients with WBC >100,00 0 may have falsely elevated Potassium levels. ??For accurate Potassium quantif ication in these patients send serum separator tube (gold top) for subsequent determinations. ??Contact the Clinical Chemistry Laboratory if there are any qu estions. Chloride 98 98 - 107 mmol/L [facility] LABORATORY CO2 29 22 - 31 mmol/L [facility] LABORATORY Anion Gap 11 5 - 15 mmol/L [facility] LABORATORY Calcium 8.8 8.5 - 10.5 mg/dL [facility] LABORATORY Estimated GFR >60 >=60 [facility] LABORATORY Comment: The reported eGFR should be multiplied b y 1.2 for patients. The MDRD is not an appropriate measure o f renal function for patients with body mass extremes or in patients with acute kidney failure. http://SurePeak/DHnkdep http://SurePeak/DHMCnkf Specimen Anatomical Collection Method Collection Time Receive d Time (Source) Location / / Volume Laterality Blood specimen 08/15/2017 6:22 AM 018 6:33 (specimen) EST AM EST Resulting Agency Comment Spec In Lab Yonathan Smith MD CHEMISTRY ORDERABLES Performing Organization Address City/State/[place] [address] (ABNORMAL) Prothrombin Time (08/15/2017 6:22 AM EST) athologist Signature PT 21.9 (H) 11.8 - 14.0 [facility] LABORATORY INR 1.9 (H) 0.9 - 1.1 [facility] LABORATORY Comment: An INR <2.0 [...] Organization Address City/State/ZIP Code Phon e Number [address] POCT Glucose (08/15/2017 4:33 AM EST) athologist Signature POC Glucose 164 65 - 199 BARBARA RYAN mg/dL [facility] LABORATORY Comment: Supplemental ranges: <140 mg/dL before meals <180 mg/dL all other times of the day Specimen Anatomical Collection Method Collection Time Receive d Time (Source) Location / / Volume Laterality Blood specimen 08/15/2017 4:33 AM 018 4:33 (specimen) EST AM EST Yonathan Smith MD POINT OF CARE TEST ORDERABLE S Performing Organization Address City/[facility]/ZIP Code Phon e Number [address] POCT Glucose (08/15/2017 12:12 AM EST) athologist Signature POC Glucose 89 65 - 199 BARBARA RYAN mg/dL [facility] LABORATORY Comment: Supplemental ranges: <140 mg/dL before meals <180 mg/dL all other times of the day Specimen Anatomical Collection Method Collection Time Receive d Time (Source) Location / / Volume Laterality Blood specimen 08/15/2017 12:12 8 (specimen) AM EST 12:12 AM EST Yonathan Smith MD POINT OF CARE TEST ORDERABLE S Performing Organization Address City/[facility]/ZIP Code Phon e Number [address] (ABNORMAL) POCT Glucose (08/14/2017 8:07 PM EST) athologist Signature POC Glucose 204 (H) 65 - 199 BARBARA RYAN mg/dL [facility] LABORATORY Comment: Supplemental ranges: <140 mg/dL before meals <180 mg/dL all other times of the day Specimen Anatomical Collection Method Collection Time Receive d Time (Source) Location / / Volume Laterality Blood specimen 08/14/2017 8:07 PM 018 8:07 (specimen) EST PM EST Yonathan Smith MD POINT OF CARE TEST ORDERABLE S Performing Organization Address City/State/ZIP Code Phon e Number [address] POCT Glucose (08/14/2017 5:11 PM EST) athologist Signature POC Glucose 174 65 - 199 [facility] mg/dL [facility] LABORATORY Comment: Supplemental ranges: <140 mg/dL before meals <180 mg/dL all other times of the day Specimen Anatomical Collection Method Collection Time Receive d Time (Source) Location / / Volume Laterality Blood specimen 08/14/2017 5:11 PM 018 5:11 (specimen) EST PM EST Yonathan Smith MD POINT OF CARE TEST ORDERABLE S Performing Organization Address City/State/ZIP Code Phon e Number [address] POCT Glucose (08/14/2017 12:10 PM EST) athologist Signature POC Glucose 141 65 - 199 BARBARA RYAN mg/dL [facility] LABORATORY Comment: Supplemental ranges: <140 mg/dL before meals <180 mg/dL all other times of the day Specimen Anatomical Collection Method Collection Time Receive d Time (Source) Location / / Volume Laterality Blood specimen 08/14/2017 12:10 8 (specimen) PM EST 12:10 PM EST Yonathan Smith MD POINT OF CARE TEST ORDERABLE S Performing Organization Address City/State/ZIP Code Phon e Number [address] POCT Glucose (08/14/2017 8:07 AM EST) athologist Signature POC Glucose 158 65 - 199 BARBARA ZHAORYAN mg/dL [facility] LABORATORY Comment: Supplemental ranges: <140 mg/dL before meals <180 mg/dL all other times of the day Specimen Anatomical Collection Method Collection Time Receive d Time (Source) Location / / Volume Laterality Blood specimen 08/14/2017 8:07 AM 018 8:07 (specimen) EST AM EST Yonathan Smith MD POINT OF CARE TEST ORDERABLE S Performing Organization Address City/State/[place] [address] (ABNORMAL) Differential, Automated (08/14/2017 4:52 AM EST) [facility] Method Time Signature Neutrophils % 78.6 % [facility] LABORATORY Neutr Abs (ANC) 7.70 (H) 1.70 - [facility] 6.10 [facility] x10(3)/[facility] LABORATORY Lymphocytes % 7.8 % [facility] LABORATORY Lymphocytes Abs 0.8 (L) 0.9 - 3.2 [facility] x10(3)/[facility] LABORATORY Monocytes % 8.8 % [facility] LABORATORY Monocyte Abs 0.9 0.3 - 0.9 [facility] x10(3)/[facility] LABORATORY Eosinophils % 4.0 % [facility] LABORATORY Eosinophils Abs 0.4 0.0 - 0.4 [facility] x10(3)/[facility] LABORATORY Basophils % 0.5 % [facility] LABORATORY Basophils Abs 0.0 0.0 - 0.1 [facility] x10(3)/[facility] LABORATORY Immature Gran % 0.30 % [facility] [...] 0.03 0.00 - 0.04 x10(3)/[facility] LABORATORY Specimen Anatomical Collection Method Collection Time Receive d Time (Source) Location / / Volume Laterality Blood specimen 08/14/2017 4:52 AM 018 5:08 (specimen) EST AM EST Resulting Agency Comment Spec In Lab Yonathan Smith MD HEMATOLOGY ORDERABLES Performing Organization Address City/State/ZIP Code Phon e Number [address] (ABNORMAL) Hemogram (08/14/2017 4:52 AM EST) Analysis Performed At Patho logist Time Signature WBC 9.8 (H) 4.0 - 9.5 [facility](3[facility] LABORATORY RBC 3.32 (L) 4.58 - BARBARA RYAN 5.54 [facility] x10(6)/[facility] LABORATORY Hemoglobin 9.5 (L) 13.7 - [facility] 16.5 gm/dL [facility] LABORATORY Hematocrit 30.3 (L) 40.5 - [facility] 48.5 % [facility] LABORATORY MCV 91.3 82.9 - [facility] 93.1 [facility] LABORATORY MCH 28.6 27.5 - BARBARA RYNA 32.1 pg [facility] LABORATORY MCHC 31.4 (L) 32.0 - BARBARA RYAN 35.7 gm/dL [facility] LABORATORY Platelets 263 145 - 357 [facility] x10(3)/[facility] LABORATORY RDWSD 54.8 (H) 36.0 - BARBARA RYAN 45.0 [facility] LABORATORY RDWCV 16.5 (H) 11.4 - [facility] RYAN 13.8 % [facility] LABORATORY MPV 9.1 7.6 - 12.9 [facility] LABORATORY nRBC % Auto 0.0 % [facility] LABORATORY nRBC Abs Auto 0.000 0.000 - BARBARA RYAN 0.000 [facility] x10(3)/[facility] LABORATORY Specimen Anatomical Collection Method Collection Time Receive d Time (Source) Location / / Volume Laterality Blood specimen 08/14/2017 4:52 AM 018 5:08 (specimen) EST AM EST Resulting Agency Comment Spec In Lab Yonathan Smith MD HEMATOLOGY ORDERABLES Performing Organization Address City/State/ZIP Code Phon e Number [address] (ABNORMAL) Prothrombin Time (08/14/2017 4:52 AM EST) athologist Signature PT 18.8 (H) 11.8 - 14.0 [facility] LABORATORY INR 1.6 (H) 0.9 - 1.1 [facility] LABORATORY Comment: An INR <2.0 [...] City/State/[place] [address] (ABNORMAL) Basic Metabolic Panel (non-fasting) (08/14/2017 4:52 AM EST) athologist Signature Glucose Lvl 135 65 - 199 [facility] mg/dL [facility] LABORATORY Comment: Diabetes: >=200 mg/dL plus symp toms BUN 25 (H) 10 - 20 mg/dL [facility] LABORATORY Creatinine 1.36 0.80 - 1.50 mg/dL [facility] LABORATORY Sodium 141 135 - 145 mmol/L [facility] LABORATORY Potassium 4.8 3.5 - 5.0 mmol/L [facility] LABORATORY Comment: Please note: ??Patients with WBC >100,00 0 may have falsely elevated Potassium levels. ??For accurate Potassium quantif ication in these patients send serum separator tube (gold top) for subsequent determinations. ??Contact the Clinical Chemistry Laboratory if there are any qu estions. Chloride 100 98 - 107 mmol/L [facility] LABORATORY CO2 28 22 - 31 mmol/L [facility] LABORATORY Anion Gap 13 5 - 15 mmol/L [facility] LABORATORY Calcium 8.5 8.5 - 10.5 mg/dL [facility] LABORATORY Estimated GFR 52 (L) >=60 [facility] LABORATORY Comment: The reported eGFR should be multiplied b y 1.2 for patients. The MDRD is not an appropriate measure o f renal function for patients with body mass extremes or in patients with acute kidney failure. http://SurePeak/DHnkdep http://SurePeak/DHMCnkf Specimen Anatomical Collection Method Collection Time Receive d Time (Source) Location / / Volume Laterality Blood specimen 08/14/2017 4:52 AM 018 5:08 (specimen) EST AM EST Resulting Agency Comment Spec In Lab Yonathan Smith MD CHEMISTRY ORDERABLES Performing Organization Address City/[facility]/ZIP Code Phon e Number [address] POCT Glucose (08/14/2017 3:56 AM EST) athologist Signature POC Glucose 135 65 - 199 [facility] LABORATORY Comment: Supplemental ranges: <140 mg/dL before meals <180 mg/dL all other times of the day Specimen Anatomical Collection Method Collection Time Receive d Time (Source) Location / / Volume Laterality Blood specimen 08/14/2017 3:56 AM 018 3:56 (specimen) EST AM EST Yonathan Smith MD POINT OF CARE TEST ORDERABLE S Performing Organization Address City/State/ZIP Code Phon e Number [address] POCT Glucose (08/13/2017 11:13 PM EST) athologist Signature POC Glucose 118 65 - 199 [facility]/dL [facility] LABORATORY Comment: Supplemental ranges: <140 mg/dL before meals <180 mg/dL all other times of the day Specimen Anatomical Collection Method Collection Time Receive d Time (Source) Location / / Volume Laterality Blood specimen 08/13/2017 11:13 01/19/201 8 (specimen) PM EST 11:13 PM EST Yonathan Smith MD POINT OF CARE TEST ORDERABLE S Performing Organization Address City/State/ZIP Code Phon e Number [address] (ABNORMAL) POCT Glucose (08/13/2017 8:08 PM EST) athologist Signature POC Glucose 204 (H) 65 - 199 BARBARA ZHAORYAN mg/dL [facility] LABORATORY Comment: Supplemental ranges: <140 mg/dL before meals <180 mg/dL all other times of the day Specimen Anatomical Collection Method Collection Time Receive d Time (Source) Location / / Volume Laterality Blood specimen 08/13/2017 8:08 PM 018 8:08 (specimen) EST PM EST Yonathan Smith MD POINT OF CARE TEST ORDERABLE S Performing Organization Address City/[facility]/ZIP Code Phon e Number [address] POCT Glucose (08/13/2017 4:02 PM EST) athologist Signature POC Glucose 145 65 - 199 BARBARA RYAN mg/dL [facility] LABORATORY Comment: Supplemental ranges: <140 mg/dL before meals <180 mg/dL all other times of the day Specimen Anatomical Collection Method Collection Time Receive d Time (Source) Location / / Volume Laterality Blood specimen 08/13/2017 4:02 PM 018 4:02 (specimen) EST PM EST Yonathan Smith MD POINT OF CARE TEST ORDERABLE S Performing Organization Address City/[facility]/[place] [address] POCT Glucose (08/13/2017 11:31 AM EST) athologist Signature POC Glucose 179 65 - 199 BARBARA RYAN mg/dL [facility] LABORATORY Comment: Supplemental ranges: <140 mg/dL before meals <180 mg/dL all other times of the day Specimen Anatomical Collection Method Collection Time Receive d Time (Source) Location / / Volume Laterality Blood specimen 08/13/2017 11:31 8 (specimen) AM EST 11:31 AM EST Yonathan Smith MD POINT OF CARE TEST ORDERABLE S Performing Organization Address City/[facility]/ZIP Code Phon e Number [address] (ABNORMAL) POCT Glucose (08/13/2017 10:16 AM EST) P athologist Signature POC Glucose 211 (H) 65 - 199 BARBARA DAVIS mg/dL [facility] LABORATORY Comment: Supplemental ranges: <140 mg/dL before meals <180 mg/dL all other times of the day Specimen Anatomical Collection Method Collection Time Receive d Time (Source) Location / / Volume Laterality Blood specimen 08/13/2017 10:16 8 (specimen) AM EST 10:16 AM EST Yonathan Smith MD POINT OF CARE TEST ORDERABLE S Performing Organization Address City/[facility]/[place]IP [place] [address] JULIAN, legs, multiple levels (08/13/2017 7:42 AM EST) Component Value Ref Test Analysis Performed At Patholo gist Range Method Time Signature VB Text Department: Vascular Surgery Lab VASCUBASE Report Patient: [id number] (GREGORY HOANG) CPT: 83904 ICD10: I99.8 Referring Physician: YONATHAN SMITH ?? Indications: s/p R 1,2,3 toe amps with red left foot, need n ew baseline Diabetes mellitus: yes ICD10 Diagnosis Code: I99.8 Findings: Right ?Pressure (mm Hg) ?? JULIAN ??Waveform ?TBI ?? Brachial Artery ?138 ? Dorsalis Pedis (Ankle) Arter y ?132 ? 0.94 ??Flagler- Biphasic ? Posterior Tibial (Ankle) Art anila ??154 ? 1.10 ??Flagler-Biphasic ? Fourth Toe ? 67 ? 0.48 [...] Smith MD VASCULAR ORDERABLES Performing Organization Address City/[facility]/ZIP Code Phon e Number [id number] POCT Glucose (08/13/2017 7:33 AM EST) P athologist Signature POC Glucose 156 65 - 199 [facility] mg/dL [facility] Comment: Supplemental ranges: <140 mg/dL before meals <180 mg/dL all other times of the day Specimen Anatomical Collection Method Collection Time Receive d Time (Source) Location / / Volume Laterality Blood specimen 08/13/2017 7:33 AM 018 7:33 (specimen) EST AM EST Yonathan Smith MD POINT OF CARE TEST ORDERABLE S Performing Organization Address City/State/[place] [address] (ABNORMAL) Differential, Automated (08/13/2017 5:33 AM EST) Patholo gist Method Time Signature Neutrophils % 77.8 % [facility] Neutr Abs (ANC) 7.83 (H) 1.70 - [facility] 6.10 [facility] x10(3)/[facility] L LABORATORY Lymphocytes % 8.4 % [facility] Lymphocytes Abs 0.8 (L) 0.9 - 3.2 [facility] x10(3)/[facility] LABORATORY Monocytes % 8.3 % [facility] Monocyte Abs 0.8 0.3 - 0.9 [facility] x10(3)/[facility] LABORATORY Eosinophils % 4.6 % [facility] Eosinophils Abs 0.5 (H) 0.0 - 0.4 [facility] x10(3)/[facility] LABORATORY Basophils % 0.5 % [facility] Basophils Abs 0.0 0.0 - 0.1 [facility] x10(3)/[facility] LABORATORY Immature Gran % 0.40 % [facility] [...] 0.00 - 0.04 x10(3)/[facility] LABORATORY Specimen Anatomical Collection Method Collection Time Receive d Time (Source) Location / / Volume Laterality Blood specimen 08/13/2017 5:33 AM 018 6:04 (specimen) EST AM EST Resulting Agency Comment Spec In Lab Yonathan Smith MD HEMATOLOGY ORDERABLES Performing Organization Address City/State/[place] [address] (ABNORMAL) Hemogram (08/13/2017 5:33 AM EST) Analysis Performed At Patho logist Time Signature WBC 10.1 (H) 4.0 - 9.5 [facility] x10(3)/[facility] [place] LABORATORY RBC 3.21 (L) 4.58 - [facility] 5.54 [facility] x10(6)/[facility] LABORATORY Hemoglobin 9.2 (L) 13.7 - [facility] 16.5 gm/dL [facility] Hematocrit 29.6 (L) 40.5 - [facility] 48.5 % [facility] MCV 92.2 82.9 - [facility] 93.1 [facility] LABORATORY MCH 28.7 27.5 - [facility] DAVIS 32.1 pg [facility] MCHC 31.1 (L) 32.0 - [facility] DAVIS 35.7 gm/dL [facility] Platelets 263 145 - 357 BARBARA LARSEN x10(3)/[facility] [place] LABORATORY RDWSD 54.8 (H) 36.0 - [facility] DAVIS 45.0 [facility] LABORATORY RDWCV 16.4 (H) 11.4 - [facility] RYAN 13.8 % [facility] MPV 9.2 7.6 - 12.9 [facility] LABORATORY nRBC % Auto 0.0 % [facility] nRBC Abs Auto 0.000 0.000 - BARBAR[facility] RYAN 0.000 [facility] x10(3)/[facility] LABORATORY Specimen Anatomical Collection Method Collection Time Receive d Time (Source) Location / / Volume Laterality Blood specimen 08/13/2017 5:33 AM 018 6:04 (specimen) EST AM EST Resulting Agency Comment Spec In Lab Yonathan Smith MD HEMATOLOGY ORDERABLES Performing Organization Address City/State/[place] [address] (ABNORMAL) Prothrombin Time (08/13/2017 5:33 AM EST) P athologist Signature PT 17.3 (H) 11.8 - 14.0 [facility] LABORATORY INR 1.4 (H) 0.9 - 1.1 [facility] Comment: An INR <2.0 [...] Address City/State/[place] [address] (ABNORMAL) Basic Metabolic Panel (non-fasting) (08/13/2017 5:33 AM EST) P athologist Signature Glucose Lvl 126 65 - 199 [facility] mg/dL [facility] Comment: Diabetes: >=200 mg/dL plus symp toms BUN 18 10 - 20 mg/dL [facility] Creatinine 1.16 0.80 - 1.50 mg/dL [facility] Sodium 141 135 - 145 mmol/L [facility] Potassium 4.6 3.5 - 5.0 mmol/L [facility] Comment: Please note: ??Patients with WBC >100,00 0 may have falsely elevated Potassium levels. ??For accurate Potassium quantif ication in these patients send serum separator tube (gold top) for subsequent determinations. ??Contact the Clinical Chemistry Laboratory if there are any qu estions. Chloride 100 98 - 107 mmol/L [facility] CO2 29 22 - 31 mmol/L [facility] Anion Gap 12 5 - 15 mmol/L [facility] Calcium 7.9 (L) 8.5 - 10.5 mg/dL [facility] Estimated GFR >60 >=60 [facility] Comment: The reported eGFR should be multiplied b y 1.2 for patients. The MDRD is not an appropriate measure o f renal function for patients with body mass extremes or in patients with acute kidney failure. http://Ahometo.Factonomy/DHnkdep http://Ahometo.com/DHMCnkf Specimen Anatomical Collection Method Collection Time Receive d Time (Source) Location / / Volume Laterality Blood specimen 08/13/2017 5:33 AM 018 6:04 (specimen) EST AM EST Resulting Agency Comment Spec In Lab Yonathan Smith MD CHEMISTRY ORDERABLES Performing Organization Address City/State/ZIP [place] [address] POCT Glucose (08/13/2017 4:29 AM EST) athologist Signature POC Glucose 111 65 - 199 BARBARA ZHAORYAN mg/dL [facility] Comment: Supplemental ranges: <140 mg/dL before meals <180 mg/dL all other times of the day Specimen Anatomical Collection Method Collection Time Receive d Time (Source) Location / / Volume Laterality Blood specimen 08/13/2017 4:29 AM 018 4:29 (specimen) EST AM EST Yonathan Smith MD POINT OF CARE TEST ORDERABLE S Performing Organization Address City/[facility]/[place]IP [place] [address] POCT Glucose (08/12/2017 11:28 PM EST) athologist Signature POC Glucose 164 65 - 199 BARBARA ZHAORYAN mg/dL [facility] Comment: Supplemental ranges: <140 mg/dL before meals <180 mg/dL all other times of the day Specimen Anatomical Collection Method Collection Time Receive d Time (Source) Location / / Volume Laterality Blood specimen 08/12/2017 11:28 8 (specimen) PM EST 11:28 PM EST Yonathan Smith MD POINT OF CARE TEST ORDERABLE S Performing Organization Address City/[facility]/[place]IP [place] [address] (ABNORMAL) POCT Glucose (08/12/2017 7:40 PM EST) athologist Signature POC Glucose 209 (H) 65 - 199 BARBAR[facility] ZHAORYAN mg/dL [facility] Comment: Supplemental ranges: <140 mg/dL before meals <180 mg/dL all other times of the day Specimen Anatomical Collection Method Collection Time Receive d Time (Source) Location / / Volume Laterality Blood specimen 08/12/2017 7:40 PM 018 7:40 (specimen) EST PM EST Yonathan Smith MD POINT OF CARE TEST ORDERABLE S Performing Organization Address City/State/[place] [address] POCT Glucose (08/12/2017 4:24 PM EST) athologist Signature POC Glucose 161 65 - 199 [facility] RYAN mg/dL [facility] Comment: Supplemental ranges: <140 mg/dL before meals <180 mg/dL all other times of the day Specimen Anatomical Collection Method Collection Time Receive d Time (Source) Location / / Volume Laterality Blood specimen 08/12/2017 4:24 PM 018 4:24 (specimen) EST PM EST Yonathan Smith MD POINT OF CARE TEST ORDERABLE S Performing Organization Address City/State/ZIP Code Phon e Number [address] POCT Glucose (08/12/2017 12:00 PM EST) athologist Signature POC Glucose 167 65 - 199 [facility] mg/dL [facility] Comment: Supplemental ranges: <140 mg/dL before meals <180 mg/dL all other times of the day Specimen Anatomical Collection Method Collection Time Receive d Time (Source) Location / / Volume Laterality Blood specimen 08/12/2017 12:00 8 (specimen) PM EST 12:00 PM EST Yonathan Smith MD POINT OF CARE TEST ORDERABLE S Performing Organization Address City/State/[place] [address] POCT Glucose (08/12/2017 7:25 AM EST) athologist Signature POC Glucose 152 65 - 199 [facility] RYAN mg/dL [facility] Comment: Supplemental ranges: <140 mg/dL before meals <180 mg/dL all other times of the day Specimen Anatomical Collection Method Collection Time Receive d Time (Source) Location / / Volume Laterality Blood specimen 08/12/2017 7:25 AM 018 7:25 (specimen) EST AM EST Yonathan Smith MD POINT OF CARE TEST ORDERABLE S Performing Organization Address City/State/Z[place] [address] (ABNORMAL) Differential, Automated (08/12/2017 6:29 AM EST) Patholo gist Method Time Signature Neutrophils % 78.7 % [facility] Neutr Abs (ANC) 7.94 (H) 1.70 - [facility] 6.10 [facility] x10(3)/[facility] LABORATORY Lymphocytes % 8.8 % [facility] Lymphocytes Abs 0.9 0.9 - 3.2 [facility] x10(3)/[facility] LABORATORY Monocytes % 7.8 % [facility] Monocyte Abs 0.8 0.3 - 0.9 [facility] x10(3)/[facility] LABORATORY Eosinophils % 3.9 % [facility] Eosinophils Abs 0.4 0.0 - 0.4 [facility] x10(3)/[facility] LABORATORY Basophils % 0.3 % [facility] Basophils Abs 0.0 0.0 - 0.1 [facility] x10(3)/[facility] LABORATORY Immature Gran % 0.50 % [facility] [...] Gran Abs 0.05 (H) 0.00 - 0.04 x10(3)/[facility] LABORATORY Specimen Anatomical Collection Method Collection Time Receive d Time (Source) Location / / Volume Laterality Blood specimen 08/12/2017 6:29 AM 018 6:38 (specimen) EST AM EST Resulting Agency Comment Spec In Lab Yonathan Smith MD HEMATOLOGY ORDERABLES Performing Organization Address City/State/ZIP Code Phon e Number [place] [phone] (ABNORMAL) Hemogram (08/12/2017 6:29 AM EST) Analysis Performed At Path logist Time Signature WBC 10.1 (H) 4.0 - 9.5 [facility] x10(3)/[facility] [place] LABORATORY RBC 3.02 (L) 4.58 - [facility] 5.54 [facility] x10(6)/[facility] LABORATORY Hemoglobin 8.7 (L) 13.7 - [facility] 16.5 gm/dL [facility] Hematocrit 28.1 (L) 40.5 - [facility] 48.5 % [facility] MCV 93.0 82.9 - [facility] 93.1 [facility] LABORATORY MCH 28.8 27.5 - [facility] 32.1 pg [facility] MCHC 31.0 (L) 32.0 - [facility] 35.7 gm/dL [facility] Platelets 223 145 - 357 [facility] x10(3)/[facility] [place] LABORATORY RDWSD 56.1 (H) 36.0 - [facility] 45.0 [facility] RDWCV 16.4 (H) 11.4 - [facility] 13.8 % [facility] MPV 9.0 7.6 - 12.9 [facility] LABORATORY nRBC % Auto 0.0 % [facility] nRBC Abs Auto 0.000 0.000 - [facility] 0.000 [facility] x10(3)/[facility] LABORATORY Specimen Anatomical Collection Method Collection Time Receive d Time (Source) Location / / Volume Laterality Blood specimen 08/12/2017 6:29 AM 018 6:38 (specimen) EST AM EST Resulting Agency Comment Spec In Lab Yonathan Smith MD HEMATOLOGY ORDERABLES Performing Organization Address City/State/[place] [address] (ABNORMAL) Prothrombin Time (08/12/2017 6:29 AM EST) athologist Signature PT 16.1 (H) 11.8 - 14.0 [facility] LABORATORY INR 1.3 (H) 0.9 - 1.1 [facility] Comment: An INR <2.0 [...] Organization Address City/State/ZIP Code Phon e Number [place] [phone] (ABNORMAL) Basic Metabolic Panel (non-fasting) (08/12/2017 6:29 AM EST) P athologist Signature Glucose Lvl 151 65 - 199 [facility] mg/dL [facility] Comment: Diabetes: >=200 mg/dL plus symp toms BUN 18 10 - 20 mg/dL [facility] Creatinine 1.11 0.80 - 1.50 mg/dL [facility] Sodium 138 135 - 145 mmol/L [facility] Potassium 4.6 3.5 - 5.0 mmol/L [facility] Comment: Please note: ??Patients with WBC >100,00 0 may have falsely elevated Potassium levels. ??For accurate Potassium quantif ication in these patients send serum separator tube (gold top) for subsequent determinations. ??Contact the Clinical Chemistry Laboratory if there are any qu estions. Chloride 99 98 - 107 mmol/L [facility] CO2 28 22 - 31 mmol/L [facility] Anion Gap 11 5 - 15 mmol/L [facility] Calcium 7.9 (L) 8.5 - 10.5 mg/dL [facility] Estimated GFR >60 >=60 [facility] Comment: The reported eGFR should be multiplied b y 1.2 for patients. The MDRD is not an appropriate measure o f renal function for patients with body mass extremes or in patients with acute kidney failure. http://Ahometo.Factonomy/DHnkdep http://Ahometo.Factonomy/DHMCnkf Specimen Anatomical Collection Method Collection Time Receive d Time (Source) Location / / Volume Laterality Blood specimen 08/12/2017 6:29 AM 018 6:38 (specimen) EST AM EST Resulting Agency Comment Spec In Lab Yonathan Smith MD CHEMISTRY ORDERABLES Performing Organization Address City/State/ZIP Code Phon e Number [address] POCT Glucose (08/12/2017 4:08 AM EST) athologist Signature POC Glucose 181 65 - 199 [facility] RYAN mg/dL [facility] Comment: Supplemental ranges: <140 mg/dL before meals <180 mg/dL all other times of the day Specimen Anatomical Collection Method Collection Time Receive d Time (Source) Location / / Volume Laterality Blood specimen 08/12/2017 4:08 AM 018 4:08 (specimen) EST AM EST Yonathan Smith MD POINT OF CARE TEST ORDERABLE S Performing Organization Address City/[facility]/[place]IP [place] [address] (ABNORMAL) POCT Glucose (08/12/2017 12:17 AM EST) athologist Signature POC Glucose 221 (H) 65 - 199 [facility] RYAN mg/dL [facility] Comment: Supplemental ranges: <140 mg/dL before meals <180 mg/dL all other times of the day Specimen Anatomical Collection Method Collection Time Receive d Time (Source) Location / / Volume Laterality Blood specimen 08/12/2017 12:17 8 (specimen) AM EST 12:17 AM EST Yonathan Smith MD POINT OF CARE TEST ORDERABLE S Performing Organization Address City/[facility]/ZIP Code Phon e Number [address] (ABNORMAL) POCT Glucose (08/11/2017 8:52 PM EST) athologist Signature POC Glucose 221 (H) 65 - 199 [facility] RYAN mg/dL [facility] Comment: Supplemental ranges: <140 mg/dL before meals <180 mg/dL all other times of the day Specimen Anatomical Collection Method Collection Time Receive d Time (Source) Location / / Volume Laterality Blood specimen 08/11/2017 8:52 PM 018 8:52 (specimen) EST PM EST Yonathan Smith MD POINT OF CARE TEST ORDERABLE S Performing Organization Address City/State/[place] [address] POCT Glucose (08/11/2017 5:59 PM EST) athologist Signature POC Glucose 169 65 - 199 BARBAR[facility] ZHAORYAN mg/dL [facility] Comment: Supplemental ranges: <140 mg/dL before meals <180 mg/dL all other times of the day Specimen Anatomical Collection Method Collection Time Receive d Time (Source) Location / / Volume Laterality Blood specimen 08/11/2017 5:59 PM 018 5:59 (specimen) EST PM EST Yonathan Smith MD POINT OF CARE TEST ORDERABLE S Performing Organization Address City/State/[place] [address] (ABNORMAL) POCT Glucose (08/11/2017 4:08 PM EST) athologist Signature POC Glucose 240 (H) 65 - 199 [facility] RYAN mg/dL [facility] Comment: Supplemental ranges: <140 mg/dL before meals <180 mg/dL all other times of the day Specimen Anatomical Collection Method Collection Time Receive d Time (Source) Location / / Volume Laterality Blood specimen 08/11/2017 4:08 PM 018 4:08 (specimen) EST PM EST Yonathan Smith MD POINT OF CARE TEST ORDERABLE S Performing Organization Address City/State/ZIP Code Phon e Number [address] POCT Glucose (08/11/2017 12:04 PM EST) athologist Signature POC Glucose 182 65 - 199 [facility] RYAN mg/dL [facility] Comment: Supplemental ranges: <140 mg/dL before meals <180 mg/dL all other times of the day Specimen Anatomical Collection Method Collection Time Receive d Time (Source) Location / / Volume Laterality Blood specimen 08/11/2017 12:04 8 (specimen) PM EST 12:04 PM EST Yonathan Smith MD POINT OF CARE TEST ORDERABLE S Performing Organization Address City/State/Z[place] [address] POCT Glucose (08/11/2017 7:31 AM EST) P athologist Signature POC Glucose 156 65 - 199 [facility] mg/dL [facility] Comment: Supplemental ranges: <140 mg/dL before meals <180 mg/dL all other times of the day Specimen Anatomical Collection Method Collection Time Receive d Time (Source) Location / / Volume Laterality Blood specimen 08/11/2017 7:31 AM 018 7:31 (specimen) EST AM EST Yonathan Smith MD POINT OF CARE TEST ORDERABLE S Performing Organization Address City/State/Z[place] [address] (ABNORMAL) Differential, Automated (08/11/2017 6:16 AM EST) Patholo gist Method Time Signature Neutrophils % 83.7 % [facility] Neutr Abs (ANC) 10.76 (H) 1.70 - [facility] 6.10 [facility] x10(3)/[facility] L LABORATORY Lymphocytes % 6.0 % [facility] Lymphocytes Abs 0.8 (L) 0.9 - 3.2 [facility] x10(3)/[facility] LABORATORY Monocytes % 7.5 % [facility] Monocyte Abs 1.0 (H) 0.3 - 0.9 [facility] x10(3)/[facility] LABORATORY Eosinophils % 2.0 % [facility] Eosinophils Abs 0.3 0.0 - 0.4 [facility] x10(3)/[facility] LABORATORY Basophils % 0.3 % [facility] Basophils Abs 0.0 0.0 - 0.1 [facility] x10(3)/[facility] LABORATORY Immature Gran % 0.50 % [facility] [...] Gran Abs 0.06 (H) 0.00 - 0.04 x10(3)/[facility] LABORATORY Specimen Anatomical Collection Method Collection Time Receive d Time (Source) Location / / Volume Laterality Blood specimen 08/11/2017 6:16 AM 018 6:24 (specimen) EST AM EST Resulting Agency Comment Spec In Lab Yonathan Smith MD HEMATOLOGY ORDERABLES Performing Organization Address City/State/[place] [address] (ABNORMAL) Hemogram (08/11/2017 6:16 AM EST) Analysis Performed At Patho logist Time Signature WBC 12.9 (H) 4.0 - 9.5 [facility] x10(3)/[facility] LABORATORY RBC 3.28 (L) 4.58 - [facility] 5.54 [facility] x10(6)/[facility] LABORATORY Hemoglobin 9.5 (L) 13.7 - [facility] 16.[facility] gm/dL [facility] Hematocrit 29.8 (L) 40.5 - [facility] 48.5 % [facility] MCV 90.9 82.9 - [facility] 93.1 [facility] LABORATORY MCH 29.0 27.5 - [facility] 32.1 pg [facility] MCHC 31.9 (L) 32.0 - [facility] 35.7 gm/dL [facility] Platelets 236 145 - 357 [facility] x10(3)/[facility] LABORATORY RDWSD 53.5 (H) 36.0 - [facility] 45.0 [facility] LABORATORY RDWCV 16.3 (H) 11.4 - [facility] 13.8 % [facility] MPV 8.8 7.6 - 12.9 [facility] LABORATORY nRBC % Auto 0.0 % [facility] nRBC Abs Auto 0.000 0.000 - [facility] DAVIS 0.000 [facility] x10(3)/[facility] LABORATORY Specimen Anatomical Collection Method Collection Time Receive d Time (Source) Location / / Volume Laterality Blood specimen 08/11/2017 6:16 AM 018 6:24 (specimen) EST AM EST Resulting Agency Comment Spec In Lab Yonathan Smith MD HEMATOLOGY ORDERABLES Performing Organization Address City/State/[place] [address] (ABNORMAL) Prothrombin Time (08/11/2017 6:16 AM EST) P athologist Signature PT 15.5 (H) 11.8 - 14.0 [facility] LABORATORY INR 1.3 (H) 0.9 - 1.1 [facility] Comment: An INR <2.0 [...] City/State/[place] [address] Basic Metabolic Panel (non-fasting) (08/11/2017 6:16 AM EST) P athologist Signature Glucose Lvl 139 65 - 199 [facility] mg/dL [facility] Comment: Diabetes: >=200 mg/dL plus symp toms BUN 12 10 - 20 mg/dL [facility] Creatinine 0.91 0.80 - 1.50 mg/dL [facility] Sodium 138 135 - 145 mmol/L [facility] Potassium 4.6 3.5 - 5.0 mmol/L [facility] Comment: Please note: ??Patients with WBC >100,00 0 may have falsely elevated Potassium levels. ??For accurate Potassium quantif ication in these patients send serum separator tube (gold top) for subsequent determinations. ??Contact the Clinical Chemistry Laboratory if there are any qu estions. Chloride 98 98 - 107 mmol/L [facility] CO2 27 22 - 31 mmol/L [facility] Anion Gap 13 5 - 15 mmol/L [facility] Calcium 8.5 8.5 - 10.5 mg/dL [facility] Estimated GFR >60 >=60 [facility] Comment: The reported eGFR should be multiplied b y 1.2 for patients. The MDRD is not an appropriate measure o f renal function for patients with body mass extremes or in patients with acute kidney failure. http://Ahometo.Factonomy/DHnkdep http://SurePeak/DHMCnkf Specimen Anatomical Collection Method Collection Time Receive d Time (Source) Location / / Volume Laterality Blood specimen 08/11/2017 6:16 AM 018 6:24 (specimen) EST AM EST Resulting Agency Comment Spec In Lab Yonathan Smith MD CHEMISTRY ORDERABLES Performing Organization Address City/State/ZIP Code Phon e [place] [address] POCT Glucose (08/11/2017 4:07 AM EST) athologist Signature POC Glucose 162 65 - 199 [facility] mg/dL [facility] Comment: Supplemental ranges: <140 mg/dL before meals <180 mg/dL all other times of the day Specimen Anatomical Collection Method Collection Time Receive d Time (Source) Location / / Volume Laterality Blood specimen 08/11/2017 4:07 AM 018 4:07 (specimen) EST AM EST Yonathan Smith MD POINT OF CARE TEST ORDERABLE S Performing Organization Address City/[facility]/ZIP Code Phon e Number [address] POCT Glucose (08/10/2017 11:59 PM EST) athologist Signature POC Glucose 166 65 - 199 [place] mg/dL [facility] Comment: Supplemental ranges: <140 mg/dL before meals <180 mg/dL all other times of the day Specimen Anatomical Collection Method Collection Time Receive d Time (Source) Location / / Volume Laterality Blood specimen 08/10/2017 11:59 8 (specimen) PM EST 11:59 PM EST Yonathan Smith MD POINT OF CARE TEST ORDERABLE S Performing Organization Address City/[facility]/ZIP Code Phon e Number [address] POCT Glucose (08/10/2017 8:12 PM EST) athologist Signature POC Glucose 156 65 - 199 [place] mg/dL [facility] Comment: Supplemental ranges: <140 mg/dL before meals <180 mg/dL all other times of the day Specimen Anatomical Collection Method Collection Time Receive d Time (Source) Location / / Volume Laterality Blood specimen 08/10/2017 8:12 PM 018 8:12 (specimen) EST PM EST Yonathan Smith MD POINT OF CARE TEST ORDERABLE S Performing Organization Address City/[facility]/[place]IP [place] [address] (ABNORMAL) POCT Glucose (08/10/2017 4:42 PM EST) athologist Signature POC Glucose 211 (H) 65 - 199 [facility] RYAN mg/dL [facility] Comment: Supplemental ranges: <140 mg/dL before meals <180 mg/dL all other times of the day Specimen Anatomical Collection Method Collection Time Receive d Time (Source) Location / / Volume Laterality Blood specimen 08/10/2017 4:42 PM 018 4:42 (specimen) EST PM EST Yonathan Smith MD POINT OF CARE TEST ORDERABLE S Performing Organization Address City/State/ZIP Code Phon e Number [place] [phone] (ABNORMAL) Differential, Automated (08/10/2017 2:30 PM EST) [facility] Method Time Signature Neutrophils % 87.6 % [facility] Neutr Abs (ANC) 9.90 (H) 1.70 - [facility] 6.10 [facility] x10(3)/[facility] L LABORATORY Lymphocytes % 4.3 % [facility] Lymphocytes Abs 0.5 (L) 0.9 - 3.2 [facility] x10(3)/[facility] LABORATORY Monocytes % 6.0 % [facility] Monocyte Abs 0.7 0.3 - 0.9 [facility] x10(3)/[facility] LABORATORY Eosinophils % 1.1 % [facility] Eosinophils Abs 0.1 0.0 - 0.4 [facility] x10(3)/[facility] LABORATORY Basophils % 0.4 % [facility] Basophils Abs 0.0 0.0 - 0.1 [facility] x10(3)/[facility] LABORATORY Immature Gran % 0.60 [...] Gran Abs 0.07 (H) 0.00 - 0.04 x10(3)/[facility] LABORATORY Specimen Anatomical Collection Method Collection Time Receive d Time (Source) Location / / Volume Laterality Blood specimen 08/10/2017 2:30 PM 018 2:48 (specimen) EST PM EST Resulting Agency Comment Spec In Lab Yonathan Smith MD HEMATOLOGY ORDERABLES Performing Organization Address City/State/[place] [address] (ABNORMAL) Hemogram (08/10/2017 2:30 PM EST) Analysis Performed At Patho logist Time Signature WBC 11.3 (H) 4.0 - 9.5 [place] x10(3)/[facility] LABORATORY RBC 3.13 (L) 4.58 - [place] RYAN 5.54 [facility] x10(6)/[facility] LABORATORY Hemoglobin 8.9 (L) 13.7 - [facility] 16.[facility] gm/dL [facility] Hematocrit 28.4 (L) 40.5 - [facility] 48.5 % [facility] MCV 90.7 82.9 - [facility] 93.1 [facility] LABORATORY MCH 28.4 27.5 - [facility] 32.1 pg [facility] MCHC 31.3 (L) 32.0 - [facility] 35.7 gm/dL [facility] Platelets 213 145 - 357 [facility] x10(3)/[facility] LABORATORY RDWSD 53.7 (H) 36.0 - [facility] 45.0 [facility] LABORATORY RDWCV 16.4 (H) 11.4 - [facility] 13.8 % [facility] MPV 8.9 7.6 - 12.9 [facility] LABORATORY nRBC % Auto 0.0 % [facility] nRBC Abs Auto 0.000 0.000 - [place] RYAN 0.000 [facility] x10(3)/[facility] LABORATORY Specimen Anatomical Collection Method Collection Time Receive d Time (Source) Location / / Volume Laterality Blood specimen 08/10/2017 2:30 PM 018 2:48 (specimen) EST PM EST Resulting Agency Comment Spec In Lab Yonathan Smith MD HEMATOLOGY ORDERABLES Performing Organization Address City/State/[place] [address] (ABNORMAL) POCT Glucose (08/10/2017 1:50 PM EST) P athologist Signature POC Glucose 243 (H) 65 - 199 [facility]dL [facility] Comment: Supplemental ranges: <140 mg/dL before meals <180 mg/dL all other times of the day Specimen Anatomical Collection Method Collection Time Receive d Time (Source) Location / / Volume Laterality Blood specimen 08/10/2017 1:50 PM 018 1:50 (specimen) EST PM EST Yonathan Smith MD POINT OF CARE TEST ORDERABLE S Performing Organization Address City/State/ZIP Code Phon e Number [address] POCT Glucose (08/10/2017 11:21 AM EST) P athologist Signature POC Glucose 156 65 - 199 [facility] mg/dL [facility] Comment: Supplemental ranges: <140 mg/dL before meals <180 mg/dL all other times of the day Specimen Anatomical Collection Method Collection Time Receive d Time (Source) Location / / Volume Laterality Blood specimen 08/10/2017 11:21 8 (specimen) AM EST 11:21 AM EST Yonathan Smith MD POINT OF CARE TEST ORDERABLE S Performing Organization Address City/State/ZIP Code Phon e Number [address] (ABNORMAL) Differential, Automated (08/10/2017 10:28 AM EST) Patholo gist Method Time Signature Neutrophils % 85.3 % [facility] Neutr Abs (ANC) 9.43 (H) 1.70 - [facility] 6.10 [facility] x10(3)/[facility] L LABORATORY Lymphocytes % 5.5 % [facility] Lymphocytes Abs 0.6 (L) 0.9 - 3.2 [facility] x10(3)/[facility] LABORATORY Monocytes % 5.9 % [facility] Monocyte Abs 0.6 0.3 - 0.9 [facility] x10(3)/[facility] LABORATORY Eosinophils % 2.1 % [facility] Eosinophils Abs 0.2 0.0 - 0.4 [facility] x10(3)/[facility] LABORATORY Basophils % 0.4 % [facility] Basophils Abs 0.0 0.0 - 0.1 [facility] x10(3)/[facility] LABORATORY Immature Gran % 0.80 % [facility] Comment: Immature granulocytes(IG's)percentage an d absolute count will include metamyelocytes, myelocytes, and promyelo cytes. Blood smears from CBCs yielding IG's will be scanned manually for concor dance. If this scan disagrees with the automated IG or if promyelocytes are not ed, a manual differential will be performed. Melisa Gran Abs 0.09 (H) 0.00 - 0.04 x10(3)/[facility] LABORATORY Specimen Anatomical Collection Method Collection Time Receive d Time (Source) Location / / Volume Laterality Blood specimen 08/10/2017 10:28 8 (specimen) AM EST 10:35 AM EST Resulting Agency Comment Spec In Lab Yonathan Smith MD HEMATOLOGY ORDERABLES Performing Organization Address City/State/[place] [address] (ABNORMAL) Hemogram (08/10/2017 10:28 AM EST) Analysis Performed At Patho logist Time Signature WBC 11.0 (H) 4.0 - 9.5 [facility] x10(3)/[facility] LABORATORY RBC 3.02 (L) 4.58 - [facility] 5.54 [facility] x10(6)/[facility] LABORATORY Hemoglobin 8.8 (L) 13.7 - [facility] 16.5 gm/dL [facility] Hematocrit 28.1 (L) 40.5 - [facility] 48.5 % [facility] MCV 93.0 82.9 - [facility] 93.1 [facility] LABORATORY MCH 29.1 27.5 - [facility] 32.1 pg [facility] MCHC 31.3 (L) 32.0 - [facility] 35.7 gm/dL [facility] Platelets 207 145 - 357 [facility] x10(3)/[facility] LABORATORY RDWSD 55.3 (H) 36.0 - [facility] 45.0 [facility] LABORATORY RDWCV 16.4 (H) 11.4 - [facility] 13.8 % [facility]ORAT[facility] MPV 9.0 7.6 - 12.9 [facility] LABORATORY nRBC % Auto 0.0 % [facility] nRBC Abs Auto 0.000 0.000 - [place] DAVIS 0.000 [facility] x10(3)/[facility] LABORATORY Specimen Anatomical Collection Method Collection Time Receive d Time (Source) Location / / Volume Laterality Blood specimen 08/10/2017 10:28 8 (specimen) AM EST 10:35 AM EST Resulting Agency Comment Spec In Lab Yonathan Smith MD HEMATOLOGY ORDERABLES Performing Organization Address City/State/ZIP Code Phon e Number [place] [phone] VS Angiogram/intervention (vascular) (08/10/2017 [...] 2.5x80 5. Completion RLE angiogram 6. L FOOD PRESERVATION SCIENTIST angiogram 7. 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 L FOOD PRESERVATION SCIENTIST access in the distal L FOOD PRESERVATION SCIENTIST. - Closure device: Mynx Technical Procedure: ?The [...] for a 45cm 5F Destination. V18 and [place] a nd QuickCross catheters were used to [...] bifurcation. Access appeared in the distal R FOOD PRESERVATION SCIENTIST. Closure and sheath removal was performed with [...] 2.5x80 5. Completion RLE angiogram 6. L FOOD PRESERVATION SCIENTIST angiogram 7. 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 L FOOD PRESERVATION SCIENTIST access in the distal L FOOD PRESERVATION SCIENTIST. - Closure device: Mynx Technical Procedure: The [...] for a 45cm 5F Destination. V18 and [place] a nd QuickCross catheters were used to [...] bifurcation. Access appeared in the distal R FOOD PRESERVATION SCIENTIST. Closure and sheath removal was performed with [...] (ABNORMAL) Differential, Automated (08/10/2017 5:50 AM EST) [facility] Method Time Signature Neutrophils % 80.1 % [facility] Neutr Abs (ANC) 9.01 (H) 1.70 - [facility] 6.10 [facility] x10(3)/[facility] LABORATORY Lymphocytes % 8.8 % [facility] Lymphocytes Abs 1.0 0.9 - 3.2 [facility] x10(3)/[facility] LABORATORY Monocytes % 8.3 % [facility] Monocyte Abs 0.9 0.3 - 0.9 [facility] x10(3)/[facility] LABORATORY Eosinophils % 2.0 % [facility] Eosinophils Abs 0.2 0.0 - 0.4 [facility] x10(3)/[facility] LABORATORY Basophils % 0.4 % [facility] Basophils Abs 0.0 0.0 - 0.1 [facility] x10(3)/[facility] LABORATORY Immature Gran % 0.40 % [facility] [...] Gran Abs 0.05 (H) 0.00 - 0.04 x10(3)/[facility] LABORATORY Specimen Anatomical Collection Method Collection Time Receive d Time (Source) Location / / Volume Laterality Blood specimen 08/10/2017 5:50 AM 018 5:59 (specimen) EST AM EST Resulting Agency Comment Spec In Lab Yonathan Smith MD HEMATOLOGY ORDERABLES Performing Organization Address City/State/[place] [address] (ABNORMAL) Hemogram (08/10/2017 5:50 AM EST) Analysis Performed At Patho logist Time Signature WBC 11.3 (H) 4.0 - 9.5 [facility](3[facility] LABORATORY RBC 3.15 (L) 4.58 - [facility] 5.54 [facility] x10(6)/[facility] LABORATORY Hemoglobin 8.9 (L) 13.7 - [facility] 16.5 gm/dL [facility] Hematocrit 29.0 (L) 40.5 - [facility] 48.5 % [facility] MCV 92.1 82.9 - [facility] 93.1 [facility] LABORATORY MCH 28.3 27.5 - [place] RYAN 32.1 pg [facility] MCHC 30.7 (L) 32.0 - [facility] 35.7 gm/dL [facility] Platelets 231 145 - 357 [facility] x10(3)/[facility] LABORATORY RDWSD 53.9 (H) 36.0 - [facility] 45.0 [facility] LABORATORY RDWCV 16.2 (H) 11.4 - [facility] 13.8 % [facility] LABORATORY MPV 8.7 7.6 - 12.9 [facility] LABORATORY nRBC % Auto 0.0 % [facility] nRBC Abs Auto 0.000 0.000 - [facility] 0.000 [facility] x10(3)/[facility] LABORATORY Specimen Anatomical Collection Method Collection Time Receive d Time (Source) Location / / Volume Laterality Blood specimen 08/10/2017 5:50 AM 018 5:59 (specimen) EST AM EST Resulting Agency Comment Spec In Lab Yonathan Smith MD HEMATOLOGY ORDERABLES Performing Organization Address City/State/[place] [address] (ABNORMAL) Basic Metabolic Panel (non-fasting) (08/10/2017 5:50 AM EST) P athologist Signature Glucose Lvl 135 65 - 199 [facility] mg/dL [facility] Comment: Diabetes: >=200 mg/dL plus symp toms BUN 17 10 - 20 mg/dL [facility] Creatinine 1.05 0.80 - 1.50 mg/dL [facility] LABORATORY Sodium 144 135 - 145 mmol/L [facility] Potassium 4.6 3.5 - 5.0 mmol/L [facility] Comment: Please note: ??Patients with WBC >100,00 0 may have falsely elevated Potassium levels. ??For accurate Potassium quantif ication in these patients send serum separator tube (gold top) for subsequent determinations. ??Contact the Clinical Chemistry Laboratory if there are any qu estions. Chloride 104 98 - 107 mmol/L [facility] CO2 27 22 - 31 mmol/L [facility] Anion Gap 13 5 - 15 mmol/L [facility] Calcium 8.1 (L) 8.5 - 10.5 mg/dL [facility] Estimated GFR >60 >=60 [facility] Comment: The reported eGFR should be multiplied b y 1.2 for patients. The MDRD is not an appropriate measure o f renal function for patients with body mass extremes or in patients with acute kidney failure. http://Ahometo.Factonomy/DHnkdep http://Ahometo.Factonomy/DHMCnkf Specimen Anatomical Collection Method Collection Time Receive d Time (Source) Location / / Volume Laterality Blood specimen 08/10/2017 5:50 AM 018 5:59 (specimen) EST AM EST Resulting Agency Comment Spec In Lab Yonathan Smith MD CHEMISTRY ORDERABLES Performing Organization Address City/State/ZIP Code Phon e Number [address] (ABNORMAL) Prothrombin Time (08/10/2017 5:50 AM EST) athologist Signature PT 16.8 (H) 11.8 - 14.0 [facility] LABORATORY INR 1.4 (H) 0.9 - 1.1 [facility] Comment: An INR <2.0 [...] Smith MD HEMATOLOGY ORDERABLES Performing Organization Address City/[facility]/[place]IP [place] [address] (ABNORMAL) POCT Glucose (08/10/2017 4:01 AM EST) athologist Signature POC Glucose 206 (H) 65 - 199 [facility]dL [facility] Comment: Supplemental ranges: <140 mg/dL before meals <180 mg/dL all other times of the day Specimen Anatomical Collection Method Collection Time Receive d Time (Source) Location / / Volume Laterality Blood specimen 08/10/2017 4:01 AM 018 4:01 (specimen) EST AM EST Yonathan Smith MD POINT OF CARE TEST ORDERABLE S Performing Organization Address City/State/ZIP Code Phon e Number [address] POCT Glucose (08/10/2017 2:01 AM EST) athologist Signature POC Glucose 188 65 - 199 [facility] mg/dL [facility] Comment: Supplemental ranges: <140 mg/dL before meals <180 mg/dL all other times of the day Specimen Anatomical Collection Method Collection Time Receive d Time (Source) Location / / Volume Laterality Blood specimen 08/10/2017 2:01 AM 018 2:01 (specimen) EST AM EST Yonathan Smith MD POINT OF CARE TEST ORDERABLE S Performing Organization Address City/[facility]/[place]IP [place] [address] (ABNORMAL) POCT Glucose (08/09/2017 11:42 PM EST) athologist Signature POC Glucose 283 (H) 65 - 199 [facility] mg/dL [facility] Comment: Supplemental ranges: <140 mg/dL before meals <180 mg/dL all other times of the day Specimen Anatomical Collection Method Collection Time Receive d Time (Source) Location / / Volume Laterality Blood specimen 08/09/2017 11:42 8 (specimen) PM EST 11:42 PM EST Yonathan Smith MD POINT OF CARE TEST ORDERABLE S Performing Organization Address City/[facility]/ZIP [place] [address] POCT Glucose (08/09/2017 8:55 PM EST) athologist Signature POC Glucose 182 65 - 199 [facility] mg/dL [facility] Comment: Supplemental ranges: <140 mg/dL before meals <180 mg/dL all other times of the day Specimen Anatomical Collection Method Collection Time Receive d Time (Source) Location / / Volume Laterality Blood specimen 08/09/2017 8:55 PM 018 8:55 (specimen) EST PM EST Yonathan Smith MD POINT OF CARE TEST ORDERABLE S Performing Organization Address City/[facility]/[place] [address] (ABNORMAL) APTT (08/09/2017 6:42 PM EST) athologist Signature PTT 90 (H) 25 - 35 sec [facility] Comment: The recommended therapeutic range [...] Smith MD HEMATOLOGY ORDERABLES Performing Organization Address City/[facility]/ZIP Code Phon e Number [address] POCT Glucose (08/09/2017 4:41 PM EST) athologist Signature POC Glucose 195 65 - 199 [facility] mg/dL [facility] Comment: Supplemental ranges: <140 mg/dL before meals <180 mg/dL all other times of the day Specimen Anatomical Collection Method Collection Time Receive d Time (Source) Location / / Volume Laterality Blood specimen 08/09/2017 4:41 PM 018 4:41 (specimen) EST PM EST Yonathan Smith MD POINT OF CARE TEST ORDERABLE S Performing Organization Address City/[facility]/ZIP Code Phon e Number [address] POCT Glucose (08/09/2017 12:29 PM EST) athologist Signature POC Glucose 140 65 - 199 [facility] mg/dL [facility] Comment: Supplemental ranges: <140 mg/dL before meals <180 mg/dL all other times of the day Specimen Anatomical Collection Method Collection Time Receive d Time (Source) Location / / Volume Laterality Blood specimen 08/09/2017 12:29 8 (specimen) PM EST 12:29 PM EST Yonathan Smith MD POINT OF CARE TEST ORDERABLE S Performing Organization Address City/State/ZIP Code Phon e Number [address] POCT Glucose (08/09/2017 9:59 AM EST) athologist Signature POC Glucose 135 65 - 199 [facility] mg/dL [facility] Comment: Supplemental ranges: <140 mg/dL before meals <180 mg/dL all other times of the day Specimen Anatomical Collection Method Collection Time Receive d Time (Source) Location / / Volume Laterality Blood specimen 08/09/2017 9:59 AM 018 9:59 (specimen) EST AM EST Yonathan Smith MD POINT OF CARE TEST ORDERABLE S Performing Organization Address [facility]/[place]IP [place] [address] Specimen to Pathology (08/09/2017 8:41 AM EST) Specimen Anatomical Collection Method Collection Time Receive d Time (Source) Location / / Volume Laterality AP Specimen 08/09/2017 8:41 AM 8 8:41 EST AM EST Narrative [facility] - 08/09/2017 8:41 AM EST Specimen requisition ordered. ??Separate Pathology report to follow Yonathan Smith MD PATHOLOGY/CYTOLOGY ORDERABLE S Performing Organization Address City/[facility]/[place]IP [place] [address] Surgical Pathology Report (08/09/2017 8:40 AM EST) Component Value Ref Test Analysis Performed At [facility] Range Method Time Signature Surgical [id number] ? Location: [facility]; Formerly named [facility]; A [facility] Report The signing pathologist has (i) examined the relevant preparation(s) for the [facility] specimen(s) and (ii) rendered or confirmed [...] [facility] Dept. of Pathology, [place], [place] CLINICAL INFORMATION Specimen Submitted: A - [...] City/State/[place] [address] Anaerobic Culture (08/09/2017 8:30 AM EST) [facility] gist Method Time Signature Anaerobic No anaerobic [facility] Culture organisms [facility] LABORATORY Specimen Anatomical Collection Method Collection Time [...] City/State/[place] [address] (ABNORMAL) Abscess/Wound Aspirate Culture (08/09/2017 8:30 AM EST) Patholo gist Method Time Signature Abscess/Wound Moderate mixed [place] Aspirate bacterial LARSEN Culture morphotypes [facility] normal LABORATORY cutaneous leroy (A) Gram Stain Rare White Blood Cells BARBAR[place] Few Gram Positive Cocci in pairs LARSEN (A) [facility] LABORATORY Organism Gram Positive BARBARA Cocci in pairs LARSEN (A) [facility] Specimen Anatomical Collection Method Collection Time Receive d Time (Source) Location / / Volume Laterality Specimen from STRUCTURE OF RIGHT 08/09/2017 8:30 AM 9:10 abscess FOOT / Unknown EST AM EST (specimen) Comment: SWAB RIGHT GREAT TOE ABSCESS FO R AEROBIC AND ANAEROBIC CULTURES. Resulting Agency Comment Spec In Lab Yonathan Smith MD MICROBIOLOGY - GENERAL ORDER ROBSON Performing Organization Address [facility]/ZIP [facility] Phon e Number [address] POCT Glucose (08/09/2017 4:28 AM EST) P athologist Signature POC Glucose 128 65 - 199 [facility]dL [facility] Comment: Supplemental ranges: <140 mg/dL before meals <180 mg/dL all other times of the day Specimen Anatomical Collection Method Collection Time Receive d Time (Source) Location / / Volume Laterality Blood specimen 08/09/2017 4:28 AM 018 4:28 (specimen) EST AM EST Yonathan Smith MD POINT OF CARE TEST ORDERABLE S Performing Organization Address City/[facility]/ZIP Code Phon e Number [address] ABORH Recheck Status (08/09/2017 1:10 AM EST) [facility] gist Method Time Signature ABORH Type Completed [facility] LABORATORY Specimen Anatomical Collection Method Collection Time Receive d Time (Source) Location / / Volume Laterality Blood specimen 08/09/2017 1:10 AM 018 1:35 (specimen) EST AM EST Resulting Agency Comment Spec In Lab Yonathan Smith MD BLOOD BANK ORDERABLES Performing Organization Address City/[facility]/ZIP [place] [address] Antibody screen (08/09/2017 1:10 AM EST) Patholo gist Method Time Signature Ab Screen Negative [facility] LABORATORY Expires at 08/12/2017 BARBARA DAVIS [id number] on: [facility] Specimen Anatomical Collection Method Collection Time Receive d Time (Source) Location / / Volume Laterality Blood specimen 08/09/2017 1:10 AM 018 1:35 (specimen) EST AM EST Resulting Agency Comment Spec In Lab Yonathan Smith MD BLOOD BANK ORDERABLES Performing Organization Address City/[facility]/ZIP Code Phon e Number [address] ABO/Rh Typing (08/09/2017 1:10 AM EST) P athologist Signature ABORh Type O Pos [facility] Specimen Anatomical Collection Method Collection Time Receive d Time (Source) Location / / Volume Laterality Blood specimen 08/09/2017 1:10 AM 018 1:35 (specimen) EST AM EST Resulting Agency Comment Spec In Lab Yonathan Smith MD BLOOD BANK ORDERABLES Performing Organization Address City/[facility]/[place]IP [place] [address] (ABNORMAL) APTT (08/09/2017 1:10 AM EST) P athologist Signature PTT 86 (H) 25 - 35 sec [facility] Comment: The recommended therapeutic range [...] Address City/State/[place] [address] [facility] [address] Drive (ABNORMAL) Differential, Automated (08/09/2017 1:10 AM EST) [facility] Method Time Signature Neutrophils % 76.2 % [facility] Neutr Abs (ANC) 8.59 (H) 1.70 - [facility] 6.10 [facility] x10(3)/[facility] LABORATORY Lymphocytes % 11.0 % [facility] Lymphocytes Abs 1.2 0.9 - 3.2 [facility] x10(3)/[facility] LABORATORY Monocytes % 8.4 % [facility] Monocyte Abs 1.0 (H) 0.3 - 0.9 [facility] x10(3)/[facility] LABORATORY Eosinophils % 3.5 % [facility] Eosinophils Abs 0.4 0.0 - 0.4 [facility] x10(3)/[facility] LABORATORY Basophils % 0.5 % [facility] Basophils Abs 0.1 0.0 - 0.1 [facility] x10(3)/[facility] LABORATORY Immature Gran % 0.40 % [facility] [...] Gran Abs 0.05 (H) 0.00 - 0.04 x10(3)/[facility] LABORATORY Specimen Anatomical Collection Method Collection Time Receive d Time (Source) Location / / Volume Laterality Blood specimen 08/09/2017 1:10 AM 018 1:19 (specimen) EST AM EST Resulting Agency Comment Spec In Lab Yonathan Smith MD HEMATOLOGY ORDERABLES Performing Organization Address City/State/[place] [address] (ABNORMAL) Hemogram (08/09/2017 1:10 AM EST) Analysis Performed At Patho logist Time Signature WBC 11.3 (H) 4.0 - 9.5 [facility] x10(3)/[facility] LABORATORY RBC 3.47 (L) 4.58 - BARBARA ZHAORYAN 5.54 [facility] x10(6)/[facility] LABORATORY Hemoglobin 10.0 (L) 13.7 - [facility] 16.5 gm/dL [facility] Hematocrit 31.9 (L) 40.5 - [facility] 48.5 % [facility] MCV 91.9 82.9 - [facility] 93.1 [facility] LABORATORY MCH 28.8 27.5 - [facility] 32.1 pg [facility] MCHC 31.3 (L) 32.0 - [facility] 35.7 gm/dL [facility] Platelets 234 145 - 357 [facility] x10(3)/[facility] LABORATORY RDWSD 54.0 (H) 36.0 - [facility] 45.0 [facility] LABORATORY RDWCV 16.2 (H) 11.4 - [facility] 13.8 % [facility] MPV 8.7 7.6 - 12.9 [facility] LABORATORY nRBC % Auto 0.0 % [facility] nRBC Abs Auto 0.000 0.000 - [facility] 0.000 [facility] x10(3)/[facility] LABORATORY Specimen Anatomical Collection Method Collection Time Receive d Time (Source) Location / / Volume Laterality Blood specimen 08/09/2017 1:10 AM 018 1:19 (specimen) EST AM EST Resulting Agency Comment Spec In Lab Yonathan Smith MD HEMATOLOGY ORDERABLES Performing Organization Address City/State/[place] [address] (ABNORMAL) Prothrombin Time (08/09/2017 1:10 AM EST) P athologist Signature PT 16.0 (H) 11.8 - 14.0 [facility] sec [facility] INR 1.3 (H) 0.9 - 1.1 [...] Address City/State/[place] [address] (ABNORMAL) Basic Metabolic Panel (non-fasting) (08/09/2017 1:10 AM EST) P athologist Signature Glucose Lvl 108 65 - 199 [facility] mg/dL [facility] Comment: Diabetes: >=200 mg/dL plus symp toms BUN 34 (H) 10 - 20 mg/dL [facility] Creatinine 1.54 (H) 0.80 - 1.50 mg/dL [facility] Sodium 138 135 - [...] Chloride 96 (L) 98 - 107 mmol/L [facility] CO2 29 22 - 31 mmol/L [facility] Anion Gap 13 5 - 15 mmol/L [facility] Calcium 8.3 (L) 8.5 - 10.5 mg/dL [facility] Estimated GFR 45 (L) >=60 [facility] Comment: The reported eGFR should be multiplied b y 1.2 for patients. The MDRD is not an appropriate measure o f renal function for patients with body mass extremes or in patients with acute kidney failure. http://SurePeak/DHnkdep http://SurePeak/DHMCnkf Specimen Anatomical Collection Method Collection Time Receive d Time (Source) Location / / Volume Laterality Blood specimen 08/09/2017 1:10 AM 018 1:19 (specimen) EST AM EST Resulting Agency Comment Spec In Lab Yonathan Smith MD CHEMISTRY ORDERABLES Performing Organization Address City/[facility]/ZIP [place] [address] POCT Glucose (08/09/2017 12:05 AM EST) athologist Signature POC Glucose 128 65 - 199 [facility]dL [facility] Comment: Supplemental ranges: <140 mg/dL before meals <180 mg/dL all other times of the day Specimen Anatomical Collection Method Collection Time Receive d Time (Source) Location / / Volume Laterality Blood specimen 08/09/2017 12:05 8 (specimen) AM EST 12:05 AM EST Yonathan Smith MD POINT OF CARE TEST ORDERABLE S Performing Organization Address City/[facility]/[place] [address] (ABNORMAL) POCT Glucose (08/08/2017 7:36 PM EST) athologist Signature POC Glucose 215 (H) 65 - 199 [facility] mg/dL [facility] Comment: Supplemental ranges: <140 mg/dL before meals <180 mg/dL all other times of the day Specimen Anatomical Collection Method Collection Time Receive d Time (Source) Location / / Volume Laterality Blood specimen 08/08/2017 7:36 PM 018 7:36 (specimen) EST PM EST Yonathan Smith MD POINT OF CARE TEST ORDERABLE S Performing Organization Address City/[facility]/[place] [address] (ABNORMAL) POCT Glucose (08/08/2017 6:23 PM EST) athologist Signature POC Glucose 216 (H) 65 - 199 [facility] RYAN mg/dL [facility] Comment: Supplemental ranges: <140 mg/dL before meals <180 mg/dL all other times of the day Specimen Anatomical Collection Method Collection Time Receive d Time (Source) Location / / Volume Laterality Blood specimen 08/08/2017 6:23 PM 018 6:23 (specimen) EST PM EST Yonathan Smith MD POINT OF CARE TEST ORDERABLE S Performing Organization Address City/[facility]/[place] [address] (ABNORMAL) APTT (08/08/2017 6:00 PM EST) athologist Signature PTT 97 (H) 25 - 35 sec [facility] Comment: The recommended therapeutic range [...] Smith MD HEMATOLOGY ORDERABLES Performing Organization Address City/[facility]/Z[place] [address] POCT Glucose (08/08/2017 4:42 PM EST) athologist Signature POC Glucose 78 65 - 199 [facility] mg/dL [facility] Comment: Supplemental ranges: <140 mg/dL before meals <180 mg/dL all other times of the day Specimen Anatomical Collection Method Collection Time Receive d Time (Source) Location / / Volume Laterality Blood specimen 08/08/2017 4:42 PM 018 4:42 (specimen) EST PM EST Yonathan Smith MD POINT OF CARE TEST ORDERABLE S Performing Organization Address City/State/[place] [address] (ABNORMAL) POCT Glucose (08/08/2017 4:01 PM EST) athologist Signature POC Glucose 58 (L) 65 - 199 [facility] mg/dL [facility] Comment: Supplemental ranges: <140 mg/dL before meals <180 mg/dL all other times of the day Specimen Anatomical Collection Method Collection Time Receive d Time (Source) Location / / Volume Laterality Blood specimen 08/08/2017 4:01 PM 018 4:01 (specimen) EST PM EST Yonathan Smith MD POINT OF CARE TEST ORDERABLE S Performing Organization Address City/State/ZIP Code Phon e Number [address] POCT Glucose (08/08/2017 11:51 AM EST) athologist Signature POC Glucose 90 65 - 199 [facility] mg/dL [facility] Comment: Supplemental ranges: <140 mg/dL before meals <180 mg/dL all other times of the day Specimen Anatomical Collection Method Collection Time Receive d Time (Source) Location / / Volume Laterality Blood specimen 08/08/2017 11:51 8 (specimen) AM EST 11:51 AM EST Yonathan Smith MD POINT OF CARE TEST ORDERABLE S Performing Organization Address City/State/[place] [address] (ABNORMAL) APTT (08/08/2017 10:27 AM EST) athologist Signature PTT 64 (H) 25 - 35 sec [facility] Comment: The recommended therapeutic range [...] Organization Address City/State/ZIP Code Phon e Number [address] POCT Glucose (08/08/2017 8:02 AM EST) athologist Signature POC Glucose 178 65 - 199 [facility] mg/dL [facility] Comment: Supplemental ranges: <140 mg/dL before meals <180 mg/dL all other times of the day Specimen Anatomical Collection Method Collection Time Receive d Time (Source) Location / / Volume Laterality Blood specimen 08/08/2017 8:02 AM 018 8:02 (specimen) EST AM EST Yonathan Smith MD POINT OF CARE TEST ORDERABLE S Performing Organization Address City/[facility] Phon e Number [address] (ABNORMAL) APTT (08/08/2017 4:51 AM EST) athologist Signature PTT >160 25 - 35 [facility] (Critical) sec [facility] Comment: Called by: HOWARD, Read [...] Smith MD HEMATOLOGY ORDERABLES Performing Organization Address City/[facility]/ZIP Code Phon e Number [address] (ABNORMAL) Differential, Automated (08/08/2017 4:51 AM EST) Patholo gist Method Time Signature Neutrophils % 77.9 % [facility] Neutr Abs (ANC) 8.17 (H) 1.70 - [facility] 6.10 [facility] x10(3)/[facility] LABORATORY Lymphocytes % 10.3 % [facility] Lymphocytes Abs 1.1 0.9 - 3.2 [facility] x10(3)/[facility] LABORATORY Monocytes % 7.0 % [facility] Monocyte Abs 0.7 0.3 - 0.9 [facility] x10(3)/[facility] LABORATORY Eosinophils % 3.6 % [facility] Eosinophils Abs 0.4 0.0 - 0.4 [facility] x10(3)/[facility] LABORATORY Basophils % 0.5 % [facility] Basophils Abs 0.0 0.0 - 0.1 [facility] x10(3)/[facility] LABORATORY Immature Gran % 0.70 % [facility] Comment: Immature granulocytes(IG's)percentage an d absolute count will include metamyelocytes, myelocytes, and promyelo cytes. Blood smears from CBCs yielding IG's will be scanned manually for concor dance. If this scan disagrees with the automated IG or if promyelocytes are not ed, a manual differential will be performed. Melisa Gran Abs 0.07 (H) 0.00 - 0.04 x10(3)/[facility] LABORATORY Specimen Anatomical Collection Method Collection Time Receive d Time (Source) Location / / Volume Laterality Blood specimen 08/08/2017 4:51 AM 018 5:14 (specimen) EST AM EST Resulting Agency Comment Spec In Lab Yonathan Smith MD HEMATOLOGY ORDERABLES Performing Organization Address City/State/[place] [address] (ABNORMAL) Hemogram (08/08/2017 4:51 AM EST) Analysis Performed At Patho logist Time Signature WBC 10.5 (H) 4.0 - 9.5 [facility] x10(3)/[facility] LABORATORY RBC 3.27 (L) 4.58 - [facility] 5.54 [facility] x10(6)/[facility] LABORATORY Hemoglobin 9.3 (L) 13.7 - [facility] 16.5 gm/dL [facility] Hematocrit 30.3 (L) 40.5 - [facility] 48.5 % [facility] MCV 92.7 82.9 - [facility] 93.1 [facility] LABORATORY MCH 28.4 27.5 - BARBARA RYAN 32.1 pg [facility] MCHC 30.7 (L) 32.0 - [facility] 35.7 gm/dL [facility] Platelets 252 145 - 357 [facility] x10(3)/[facility] LABORATORY RDWSD 54.6 (H) 36.0 - [facility] 45.0 [facility]ATORY RDWCV 16.2 (H) 11.4 - [facility] 13.8 % [facility] MPV 9.1 7.6 - 12.9 [facility] LABORATORY nRBC % Auto 0.0 % [facility] nRBC Abs Auto 0.000 0.000 - [facility] 0.000 [facility] x10(3)/[facility] LABORATORY Specimen Anatomical Collection Method Collection Time Receive d Time (Source) Location / / Volume Laterality Blood specimen 08/08/2017 4:51 AM 018 5:14 (specimen) EST AM EST Resulting Agency Comment Spec In Lab Yonathan Smith MD HEMATOLOGY ORDERABLES Performing Organization Address City/State/[place] [address] (ABNORMAL) Prothrombin Time (08/08/2017 4:51 AM EST) P athologist Signature PT 18.1 (H) 11.8 - 14.0 [facility] LABORATORY INR 1.5 (H) 0.9 - 1.1 [facility] Comment: An INR <2.0 [...] Address City/State/[place] [address] (ABNORMAL) Basic Metabolic Panel (non-fasting) (08/08/2017 4:51 AM EST) athologist Signature Glucose Lvl 229 (H) 65 - 199 [facility] mg/dL [facility] Comment: Diabetes: >=200 mg/dL plus symp toms BUN 35 (H) 10 - 20 mg/dL [facility] Creatinine 1.57 (H) 0.80 - 1.50 mg/dL [facility] Sodium 136 135 - 145 mmol/L [facility] [...] Chloride 94 (L) 98 - 107 mmol/L [facility] CO2 25 22 - 31 mmol/L [facility] Anion Gap 17 (H) 5 - 15 mmol/L [facility] Calcium 7.9 (L) 8.5 - 10.5 mg/dL [facility] Estimated GFR 44 (L) >=60 [facility] Comment: The reported eGFR should be multiplied b y 1.2 for patients. The MDRD is not an appropriate measure o f renal function for patients with body mass extremes or in patients with acute kidney failure. http://Ahometo.Factonomy/DHnkdep http://SurePeak/[facility] – TULSAnkf Specimen Anatomical Collection Method Collection Time Receive d Time (Source) Location / / Volume Laterality Blood specimen 08/08/2017 4:51 AM 018 5:14 (specimen) EST AM EST Resulting Agency Comment Spec In Lab Yonathan Smith MD CHEMISTRY ORDERABLES Performing Organization Address City/[facility]/ZIP Code Phon e Number [address] POCT Glucose (08/08/2017 4:20 AM EST) athologist Signature POC Glucose 193 65 - 199 [facility] mg/dL [facility] Comment: Supplemental ranges: <140 mg/dL before meals <180 mg/dL all other times of the day Specimen Anatomical Collection Method Collection Time Receive d Time (Source) Location / / Volume Laterality Blood specimen 08/08/2017 4:20 AM 018 4:20 (specimen) EST AM EST Yonathan Smith MD POINT OF CARE TEST ORDERABLE S Performing Organization Address City/[facility]/ZIP Code Phon e Number [address] POCT Glucose (08/07/2017 11:11 PM EST) athologist Signature POC Glucose 124 65 - 199 [facility] mg/dL [facility] Comment: Supplemental ranges: <140 mg/dL before meals <180 mg/dL all other times of the day Specimen Anatomical Collection Method Collection Time Receive d Time (Source) Location / / Volume Laterality Blood specimen 08/07/2017 11:11 8 (specimen) PM EST 11:11 PM EST Yonathan Smith MD POINT OF CARE TEST ORDERABLE S Performing Organization Address City/[facility]/ZIP Code Phon e Number [address] (ABNORMAL) APTT (08/07/2017 10:18 PM EST) athologist Signature PTT 114 (H) 25 - 35 sec [facility] Comment: The recommended therapeutic range [...] Organization Address City/State/ZIP Code Phon e Number [address] POCT Glucose (08/07/2017 8:10 PM EST) athologist Signature POC Glucose 140 65 - 199 [facility] mg/dL [facility] Comment: Supplemental ranges: <140 mg/dL before meals <180 mg/dL all other times of the day Specimen Anatomical Collection Method Collection Time Receive d Time (Source) Location / / Volume Laterality Blood specimen 08/07/2017 8:10 PM 018 8:10 (specimen) EST PM EST Yontahan Smith MD POINT OF CARE TEST ORDERABLE S Performing Organization Address City/[facility]/ZIP Code Phon e Number [address] POCT Glucose (08/07/2017 5:27 PM EST) athologist Signature POC Glucose 187 65 - 199 [facility] mg/dL [facility] Comment: Supplemental ranges: <140 mg/dL before meals <180 mg/dL all other times of the day Specimen Anatomical Collection Method Collection Time Receive d Time (Source) Location / / Volume Laterality Blood specimen 08/07/2017 5:27 PM 018 5:27 (specimen) EST PM EST Yonathan Smith MD POINT OF CARE TEST ORDERABLE S Performing Organization Address City/[facility]/ZIP Code Phon e Number [address] POCT Glucose (08/07/2017 3:29 PM EST) athologist Signature POC Glucose 86 65 - 199 [facility] RYAN mg/dL [facility] Comment: Supplemental ranges: <140 mg/dL before meals <180 mg/dL all other times of the day Specimen Anatomical Collection Method Collection Time Receive d Time (Source) Location / / Volume Laterality Blood specimen 08/07/2017 3:29 PM 018 3:29 (specimen) EST PM EST Yonathan Smith MD POINT OF CARE TEST ORDERABLE S Performing Organization Address City/[facility]/Z[place] [address] (ABNORMAL) APTT (08/07/2017 2:50 PM EST) athologist Signature PTT 60 (H) 25 - 35 sec [facility] Comment: The recommended therapeutic range [...] Smith MD HEMATOLOGY ORDERABLES Performing Organization Address City/[facility]/Z[place] [address] (ABNORMAL) POCT Glucose (08/07/2017 2:23 PM EST) athologist Signature POC Glucose 55 (L) 65 - 199 [facility] mg/dL [facility] Comment: Supplemental ranges: <140 mg/dL before meals <180 mg/dL all other times of the day Specimen Anatomical Collection Method Collection Time Receive d Time (Source) Location / / Volume Laterality Blood specimen 08/07/2017 2:23 PM 018 2:23 (specimen) EST PM EST Yonathan Smith MD POINT OF CARE TEST ORDERABLE S Performing Organization Address City/[facility]/ZIP [place] [address] POCT Glucose (08/07/2017 12:08 PM EST) P athologist Signature POC Glucose 77 65 - 199 [facility] mg/dL [facility] Comment: Supplemental ranges: <140 mg/dL before meals <180 mg/dL all other times of the day Specimen Anatomical Collection Method Collection Time Receive d Time (Source) Location / / Volume Laterality Blood specimen 08/07/2017 12:08 8 (specimen) PM EST 12:08 PM EST Yonathan Smith MD POINT OF CARE TEST ORDERABLE S Performing Organization Address City/State/[place] [address] (ABNORMAL) Differential, Automated (08/07/2017 7:30 AM EST) Patholo gist Method Time Signature Neutrophils % 73.8 % [facility] Neutr Abs (ANC) 7.17 (H) 1.70 - [facility] 6.10 [facility] x10(3)/[facility] LABORATORY Lymphocytes % 12.2 % [facility] Lymphocytes Abs 1.2 0.9 - 3.2 [facility] x10(3)/[facility] LABORATORY Monocytes % 9.0 % [facility] Monocyte Abs 0.9 0.3 - 0.9 [facility] x10(3)/[facility] LABORATORY Eosinophils % 3.9 % [facility] Eosinophils Abs 0.4 0.0 - 0.4 [facility] x10(3)/[facility] LABORATORY Basophils % 0.6 % [facility] Basophils Abs 0.1 0.0 - 0.1 [facility] x10(3)/[facility] LABORATORY Immature Gran % 0.50 % [facility] [...] Gran Abs 0.05 (H) 0.00 - 0.04 x10(3)/[facility] LABORATORY Specimen Anatomical Collection Method Collection Time Receive d Time (Source) Location / / Volume Laterality Blood specimen 08/07/2017 7:30 AM 018 7:45 (specimen) EST AM EST Resulting Agency Comment Spec In Lab Yonathan Smith MD HEMATOLOGY ORDERABLES Performing Organization Address City/State/[place] [address] (ABNORMAL) Hemogram (08/07/2017 7:30 AM EST) Analysis Performed At Patho logist Time Signature WBC 9.7 (H) 4.0 - 9.5 [facility] x10(3)/[facility] LABORATORY RBC 3.54 (L) 4.58 - [facility] 5.54 [facility] x10(6)/[facility] LABORATORY Hemoglobin 9.9 (L) 13.7 - [facility] 16.[facility] gm/dL [facility] Hematocrit 32.3 (L) 40.5 - [facility] 48.5 % [facility] MCV 91.2 82.9 - [facility] 93.1 [facility] LAB[facility]ATORY MCH 28.0 27.5 - [facility] 32.1 pg [facility] MCHC 30.7 (L) 32.0 - [facility] 35.7 gm/dL [facility] Platelets 312 145 - 357 [facility] x10(3)/[facility] LABORATORY RDWSD 53.2 (H) 36.0 - [facility] 45.0 [facility] LABORATORY RDWCV 16.0 (H) 11.4 - [facility] RYAN 13.8 % [facility] MPV 8.9 7.6 - 12.9 [facility] LABORATORY nRBC % Auto 0.0 % [facility] nRBC Abs Auto 0.000 0.000 - [facility] 0.000 [facility] x10(3)/[facility] LABORATORY Specimen Anatomical Collection Method Collection Time Receive d Time (Source) Location / / Volume Laterality Blood specimen 08/07/2017 7:30 AM 018 7:45 (specimen) EST AM EST Resulting Agency Comment Spec In Lab Yonathan Smith MD HEMATOLOGY ORDERABLES Performing Organization Address City/[facility]/[place] [address] (ABNORMAL) Basic Metabolic Panel (non-fasting) (08/07/2017 7:30 AM EST) athologist Signature Glucose Lvl 80 65 - 199 [facility] mg/dL [facility] Comment: Diabetes: >=200 mg/dL plus symp toms BUN 31 (H) 10 - 20 mg/dL [facility] Creatinine 1.22 0.80 - 1.50 mg/dL [facility] Sodium 140 135 - [...] estions. Chloride 99 98 - 107 mmol/L [facility] CO2 29 22 - 31 mmol/L [facility] Anion Gap 12 5 - 15 mmol/L [facility] Calcium 8.5 8.5 - 10.5 mg/dL [facility] Estimated GFR 59 (L) >=60 [facility] Comment: The reported eGFR should be multiplied b y 1.2 for patients. The MDRD is not an appropriate measure o f renal function for patients with body mass extremes or in patients with acute kidney failure. http://Ahometo.Factonomy/DHnkdep http://Ahometo.Factonomy/DHMCnkf Specimen Anatomical Collection Method Collection Time Receive d Time (Source) Location / / Volume Laterality Blood specimen 08/07/2017 7:30 AM 018 7:45 (specimen) EST AM EST Resulting Agency Comment Spec In Lab Yonathan Smith MD CHEMISTRY ORDERABLES Performing Organization Address City/[facility]/ZIP Code Phon e Number [address] POCT Glucose (08/07/2017 7:27 AM EST) P athologist Signature POC Glucose 81 65 - 199 [facility] mg/dL [facility] Comment: Supplemental ranges: <140 mg/dL before meals <180 mg/dL all other times of the day Specimen Anatomical Collection Method Collection Time Receive d Time (Source) Location / / Volume Laterality Blood specimen 08/07/2017 7:27 AM 018 7:27 (specimen) EST AM EST Yonathan Smith MD POINT OF CARE TEST ORDERABLE S Performing Organization Address City/State/ZIP Code Phon e Number [address] APTT (08/07/2017 7:04 AM EST) athologist Signature PTT 34 25 - 35 sec [facility] Comment: The recommended therapeutic range [...] City/State/[place] [address] (ABNORMAL) Prothrombin Time (08/07/2017 7:04 AM EST) athologist Signature PT 17.3 (H) 11.8 - 14.0 [facility] LABORATORY INR 1.4 (H) 0.9 - 1.1 [facility] Comment: An INR <2.0 [...] Organization Address City/State/ZIP Code Phon e Number [address] POCT Glucose (08/07/2017 4:03 AM EST) athologist Signature POC Glucose 93 65 - 199 [facility]AN mg/dL [facility] Comment: Supplemental ranges: <140 mg/dL before meals <180 mg/dL all other times of the day Specimen Anatomical Collection Method Collection Time Receive d Time (Source) Location / / Volume Laterality Blood specimen 08/07/2017 4:03 AM 018 4:03 (specimen) EST AM EST Yonathan Smith MD POINT OF CARE TEST ORDERABLE S Performing Organization Address City/[facility]/[place]IP [place] [address] POCT Glucose (08/07/2017 12:04 AM EST) athologist Signature POC Glucose 107 65 - 199 [facility] mg/dL [facility] Comment: Supplemental ranges: <140 mg/dL before meals <180 mg/dL all other times of the day Specimen Anatomical Collection Method Collection Time Receive d Time (Source) Location / / Volume Laterality Blood specimen 08/07/2017 12:04 8 (specimen) AM EST 12:04 AM EST Yonathan Smith MD POINT OF CARE TEST ORDERABLE S Performing Organization Address City/[facility]/ZIP Code Phon e Number [address] POCT Glucose (08/06/2017 7:56 PM EST) athologist Signature POC Glucose 178 65 - 199 [facility] mg/dL [facility] Comment: Supplemental ranges: <140 mg/dL before meals <180 mg/dL all other times of the day Specimen Anatomical Collection Method Collection Time Receive d Time (Source) Location / / Volume Laterality Blood specimen 08/06/2017 7:56 PM 018 7:56 (specimen) EST PM EST Yonathan Smith MD POINT OF CARE TEST ORDERABLE S Performing Organization Address City/State/[place] [address] TcPO2 (08/06/2017 2:32 PM EST) Component Value Ref Test Analysis Performed At [facility] gist Range Method Time Signature VB Text Department: Vascular Surgery Lab VASCUBASE Report Patient: [id number] (GREGORY HOANG) CPT: 6549278 ICD10: I99.8 Referring Physician: YONATHAN SMITH ?? [...] Mcgrath RN) 08 (Given - Provider: Dory Truong, VAMSI) 500 mg, Oral, DAILY, First dose [...] Chiquis Mcgrath RN)2012 (Given - Provider: Henrique Marks, VAMSI) 08 (Given - Provider: Chiquis Mcgrath [...] Mcgrath RN)1708 (Given - Provider: Chiquis Mcgrath, VMASI) 0749 (Given - Provider: Dory Yuan ams, [...] BG 158) 0000 (Not Given - Provider: Hnerique Marks RN - Reason: Order parameters not [...] refused) 1699 (Not Given - Provider: Chiquis Mcgrath, VAMSI - Reason: Patient/family refused)2021 (Patch [...] mg 0454 (Given - P rovider: Henrique Marsk, VAMSI)0824 (Given - Provider: Chiquis Mcgrath, VAMSI)1135 [...]
Routine documented in this encounter Care Teams Lithographed Plate Inspector Relationship Specialty Start Date End Date Lovely Vicente MD PCP - General 04/16/[address] [place] [address] documented as of this encounter
--- OUTSIDE RECORDS SUMMARY | 2022-02-13 11:14 | XMS_ITS | Encounter Summary ---
:1945 [place] [address] Care Team Providers Name Role Phone Lovely Vicente MD Primary Care Provider Encounter Details Date Type Department Care Team Description 08/09/2017 Clinical Support [place] [facility] [place] (D-SCHED ERROR [facility] / CORRECT ION ) [place] [address] Social History Tobacco Use Types Packs/Day [...] 02/19/2022 Office Visit Cardiology Liz Poole PA [facility] er Cardiology Dept [place], [place] [address] (Wo rk) 03/26/2022 Office Visit Cardiology Vitaliy Nobles MD [facility] ER CARDIOLOGY [place], [place] [address] (Wo rk) documented as of this encounter Procedures Procedure Name Priority Date/Time Associated Diagnosis Comme nts CHILD WELFARE WORKER 08/09/2017 12:00 AM Resul ts for this SCAN EST procedure are i n the results section. documented in this encounter Results SCAN DOC: CHILD WELFARE WORKER (08/09/2017 12:00 AM EST) Narrative 08/09/2017 12:00 AM EST This result has an attachment that is no t available. Ordered by an unspecified provider. Scanning Provider MEDIA MGR SCAN EXT ORDR/RSLT documented in this encounter Visit Diagnoses Not on filedocumented in this encounter Care Teams Black [place] Burner Operator Relationship Specialty Start Date End Date Lovely Vicente MD PCP - General 04/16/15 [facility] [address] [place] [address] documented as of this encounter
--- OUTSIDE RECORDS SUMMARY | 2022-02-13 11:15 | XMS_ITS | Encounter Summary ---
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 Patient [...] SETUP performed by Manny Mcknight MD at [facility] MAIN OR ??? PRO CABG, ARTERIAL, SINGLE N/A 07/07/2017 @CABG, USING ARTERIAL GRAFT;SINGLE ARTERIAL GRAFT (WRVU 33.75) performed by Yuan Retana MD at [facility] MAIN OR ??? PRO CABG, ARTERY-VEIN, TWO N/A 07/07/2017 @CABG, TWO VENOUS GRAFTS & ARTERIAL GRAFT (WRVU 7.93) performed by Yuan Retana MD at [facility] MAIN OR ??? PRO COLONOSCOPY, REMFlash MOCK, SNARE 01/16/2014 COLONOSCOPY, POLYPECTOMY, REMOVAL LESION BY SNARE performed by Nohemi Jaimes MD at [facility] ENDOSCOPY ??? PRO ENDOSCOPY W/VIDEO-ASST VEIN HARVEST, CABG Right 07/07/2017 ENDOSCOPIC HARVEST VEIN(S) FOR CABG (WRVU 0.31) performed by Yuan Retana MD at [facility] MA[facility] OR ??? 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 Hank Zhang Vascular Surgery, PGY2 Pager #[phone] Associated attestation - Arik Clement MD - [...] PA [facility] Cardiology Dept [place], [place] [address] (Wo rk) 03/26/2022 Office Visit Cardiology Vitaliy Nobles MD [facility] CARDIOLOGY [place], [place] [address] (Wo rk) documented as of [...] Value Ref Test Analysis Performed At [facility] gist Range Method Time Signature VB Text Department: Vascular Surgery Lab VASCUBASE Report Patient: [id number] (GREGORY FATIMA) CPT: 13799 ICD10: I82.541 Referring Physician: TAMIKO JIMÉNEZ ?? [...] Signature POC Glucose 128 65 - 199 [facility] mg/dL [facility] Comment: Supplemental ranges: <140 mg/dL before meals <180 mg/dL all other times of the day Specimen Anatomical Collection Method Collection Time Receive d Time (Source) Location / / Volume Laterality Blood specimen 07/29/2017 2:28 PM 018 2:28 (specimen) EST PM EST Tamiko Jiménez MD POINT OF CARE TEST ORDERABLE S Performing Organization Address City/[facility]/ZIP Code Phon e Number [address] (ABNORMAL) D-Dimer, Quantitative (07/29/2017 2:15 PM EST) [facility] Method Time Signature D-Dimer, Quant 1,699 (H) 0 - 500 [facility] FEU ng/ml [facility] Comment: The D-Dimer assay is [...] Jiménez MD HEMATOLOGY ORDERABLES Performing Organization Address City/[facility]/[place] [address] (ABNORMAL) Differential, Automated (07/29/2017 2:15 PM EST) [facility] Method Time Signature Neutrophils % 82.5 % [facility] Neutr Abs (ANC) 10.21 (H) 1.70 - [facility] 6.10 [facility] x10(3)/[facility] L LABORATORY Lymphocytes % 7.1 % [facility] Lymphocytes Abs 0.9 0.9 - 3.2 [facility] x10(3)/[facility] LABORATORY Monocytes % 6.5 % [facility] Monocyte Abs 0.8 0.3 - 0.9 [facility] x10(3)/[facility] LABORATORY Eosinophils % 2.7 % [facility] Eosinophils Abs 0.3 0.0 - 0.4 [facility] x10(3)/[facility] LABORATORY Basophils % 0.6 % [facility] Basophils Abs 0.1 0.0 - 0.1 [facility] x10(3)/[facility] LABORATORY Immature Gran % 0.60 % [...] Gran Abs 0.08 (H) 0.00 - 0.04 x10(3)/[facility] LABORATORY Specimen Anatomical Collection Method Collection Time Receive d Time (Source) Location / / Volume Laterality Blood specimen 07/29/2017 2:15 PM 018 2:36 (specimen) EST PM EST Resulting Agency Comment Spec In Lab Tamiko Jiménez MD HEMATOLOGY ORDERABLES Performing Organization Address City/State/[place] [address] (ABNORMAL) Hemogram (07/29/2017 2:15 PM EST) Analysis Performed At Patho logist Time Signature WBC 12.4 (H) 4.0 - 9.5 [facility] x10(3)/[facility] LABORATORY RBC 4.17 (L) 4.58 - [facility]54 [facility] x10(6)/[facility] LABORATORY Hemoglobin 12.1 (L) 13.7 - [facility] 16.5 gm/dL [facility] Hematocrit 38.1 (L) 40.5 - [facility] 48.5 % [facility] MCV 91.4 82.9 - [facility] 93.1 [facility] LABORATORY MCH 29.0 27.5 - [facility] 32.1 pg [facility] MCHC 31.8 (L) 32.0 - [facility] 35.7 gm/dL [facility] Platelets 204 145 - 357 [facility] x10(3)/[facility] LABORATORY RDWSD 50.5 (H) 36.0 - [place] [facility] 45.0 [facility] LABORATORY RDWCV 15.3 (H) 11.4 - [facility] 13.8 % [facility] MPV 9.4 7.6 - 12.9 [facility] LABORATORY nRBC % Auto 0.0 % [facility] nRBC Abs Auto 0.000 0.000 - [facility] 0.000 [facility] x10(3)/[facility] LABORATORY Specimen Anatomical Collection Method Collection Time Receive d Time (Source) Location / / Volume Laterality Blood specimen 07/29/2017 2:15 PM 018 2:36 (specimen) EST PM EST Resulting Agency Comment Spec In Lab Tamiko Jiménez MD HEMATOLOGY ORDERABLES Performing Organization Address City/State/ZIP Code Phon e Number [address] (ABNORMAL) Prothrombin Time (07/29/2017 2:15 PM EST) P athologist Signature PT 24.4 (H) 11.8 - 14.0 [facility] LABORATORY INR 2.2 (H) 0.9 - 1.1 [facility] [...] Organization Address City/State/ZIP Code Phon e Number [address] Arterial Duplex Leg, Unil (07/29/2017 11:50 AM EST) Component Value Ref Test Analysis Performed At Patholo gist Range Method Time Signature VB Text Department: Vascular Surgery Lab VASCUBASE Report Patient: [id number] (GREGORY FATIMA) CPT: 70869 ICD10: Z09;I97.610 Referring Physician: TAMIKO JIMÉNEZ ?? [...] Component Value Ref Test Analysis Performed At [facility] Method Time Signature VB Text Department: Vascular Surgery Lab VASCUBASE Report Patient: [id number] (GREGORY FATIMA) CPT: 04986 ICD10: I82.441 Referring Physician: TAMIKO JIMÉNEZ ?? [...] he calf. Notification: Marquis Pathak MD (pager #[phone]) was notif ied of the preliminary findings. [...] STAT documented in this encounter Care Teams Home Aid Relationship Specialty Start Date End Date Lovely Vicente MD PCP - General 04/16/15 [facility] [address] [place] [address] documented as of this encounter
--- OUTSIDE RECORDS SUMMARY | 2022-02-13 11:15 | XMS_ITS | Encounter Summary ---
:1945 [address] [facility] Address [address] [place] [address] Care Team Providers Name Role Phone Lovely Vicente MD Primary Care Provider Encounter Details Date Type Department Care Team Description 07/29/2017 Transcribe Orders Laboratory Lovely Vicente, Coronary artery rupture; [facility] Ischemic cardiomyopathy; [facility] [address] Atherosclerosis of [place] co ronary artery, angina presence unspecified, unspecified whether [place] or transplanted heart; [place], [place] [address] Essential hypertension, malignant; [address] [place], [place] 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 ER CARDIOLOGY [place] [address] (Wo rk) Scheduled Orders Name Type Priority Associated Diagnoses Order S chedule Lab Use Only, Fax Lab Routine Coronary arter y rupture Expected: 07/29/2017 Request Ischemic cardiom yopathy (Approximate), Atherosclerosis of [place] Ex jose: 07/29/2018 coronary artery, angina presence unspecified, unspecified whether [place] or transplanted heart Essential hypertension, malignant documented as of this encounter Results Uric acid (08/04/2017 12:55 PM EST) athologist Signature Uric Acid 7.1 3.5 - 8.5 [facility] RYAN mg/dL [facility] Specimen Anatomical Collection Method Collection Time Receive d Time (Source) Location / / Volume Laterality Blood specimen 08/04/2017 12:55 8 1:01 (specimen) PM EST PM EST Resulting Agency Comment Spec In Lab Lovely Vicente MD CHEMISTRY ORDERABLES Performing Organization Address City/State/[place] [address] (ABNORMAL) Hemogram (08/04/2017 12:55 PM EST) Analysis Performed At Patho logist Time Signature WBC 15.8 (H) 4.0 - 9.5 [place] RYAN x10(3)/[facility] LABORATORY RBC 3.48 (L) 4.58 - [place] RYAN 5.54 [facility] x10(6)/[facility] LABORATORY Hemoglobin 9.9 (L) 13.7 - [place] RYAN 16.5 gm/dL [facility] Hematocrit 31.4 (L) 40.5 - [place] RYAN 48.5 % [facility] MCV 90.2 82.9 - [place] R[place] 93.1 fL [facility] MCH 28.4 27.5 - [place] 32.1 pg [facility] MCHC 31.5 (L) 32.0 - [place] R[place]AN 35.7 gm/dL [facility] Platelets 310 145 - 357 [place] R[place] x10(3)/[facility] LABORATORY RDWSD 51.8 (H) 36.0 - [facility] 45.0 [facility] LABORATORY RDWCV 15.8 (H) 11.4 - [facility] 13.8 % [facility] MPV 8.9 7.6 - 12.9 [facility] LABORATORY nRBC % Auto 0.0 % [facility] LABORATORY nRBC Abs Auto 0.000 0.000 - [facility] 0.000 [facility] x10(3)/[facility] LABORATORY Specimen Anatomical Collection Method Collection Time Receive d Time (Source) Location / / Volume Laterality Blood specimen 08/04/2017 12:55 8 1:01 (specimen) PM EST PM EST Resulting Agency Comment Spec In Lab Lovely Vicente MD HEMATOLOGY ORDERABLES Performing Organization Address City/State/[place] [address] (ABNORMAL) Comprehensive metabolic panel (non-fasting) (08/04/2017 12:55 PM EST) P athologist Signature Glucose Lvl 208 (H) 65 - 199 [facility] mg/dL [facility] Comment: Diabetes: >=200 mg/dL plus symp toms BUN 32 (H) 10 - 20 mg/dL [facility] Creatinine 1.58 (H) 0.80 - 1.50 mg/dL [facility] Sodium 136 135 - 145 mmol/L [facility]OR[facility]ORY Potassium 5.5 (H) 3.5 - 5.0 mmol/L [facility] Comment: Please note: ??Patients with WBC >100,00 0 may have falsely elevated Potassium levels. ??For accurate Potassium quantif ication in these patients send serum separator tube (gold top) for subsequent determinations. ??Contact the Clinical Chemistry Laboratory if there are any qu estions. Chloride 97 (L) 98 - 107 mmol/L [facility] CO2 25 22 - 31 mmol/L [facility] Anion Gap 14 5 - 15 mmol/L [facility] Calcium 8.6 8.5 - 10.5 mg/dL [facility] Total Protein 6.9 6.1 - 8.0 gm/dL [facility] Albumin 3.4 3.2 - 5.2 gm/dL [facility] AST 20 0 - 39 unit/L [facility] ALT 21 0 - 55 unit/L [facility] Alk Phos 93 40 - 120 unit/L [facility] Total Bilirubin 0.4 0.2 - 1.3 mg/dL [facility] Estimated GFR 43 (L) >=60 [facility] Comment: The reported eGFR should be multiplied b y 1.2 for patients. The MDRD is not an appropriate measure o f renal function for patients with body mass extremes or in patients with acute kidney failure. http://[employer]/DHnkdep http://[employer]/DHMCnkf Specimen Anatomical Collection Method Collection Time Receive d Time (Source) Location / / Volume Laterality Blood specimen 08/04/2017 12:55 8 1:01 (specimen) PM EST PM EST Resulting Agency Comment Spec In Lab Lovely Vicente MD CHEMISTRY ORDERABLES Performing Organization Address City/State/[place] [address] (ABNORMAL) Hemoglobin A1c (08/04/2017 12:55 PM EST) Analysis Performed At Patho logist Time Signature Hemoglobin A1C 6.2 (H) 4.3 - 5.6 [facility] Comment: Reference Range: [...] S67-74 Est Avg Gluc See note mg/dL [facility] Comment: Estimated Average Glucose not [...] with hemoglobinopathies. Additional resources are available on [facility] ADA website. Macario HAMMOND, Ruthann J, Deysi R, et al. ??Tr anslating the A1C assay into estimated average glucose values. ??Diabetes Care 2008:31(8):3974-4781. Specimen Anatomical Collection Method Collection Time Receive d Time (Source) Location / / Volume Laterality Blood specimen 08/04/2017 12:55 8 1:01 (specimen) PM EST PM EST Resulting Agency Comment Spec In Lab Lovely Vicente MD CHEMISTRY ORDERABLES Performing Organization Address City/State/[place] [address] (ABNORMAL) Prothrombin Time (08/04/2017 12:55 PM EST) P athologist Signature PT 35.4 (H) 11.8 - 14.0 [facility] LABORATORY INR 3.5 (H) 0.9 - 1.1 [facility] [...] Organization Address City/State/[place] [address] documented in this encounter Visit Diagnoses Diagnosis Coronary artery rupture Acute myocardial infarction, unspecified site, episode of care unspecified Ischemic cardiomyopathy Other specified forms of chronic ischemi c heart disease Atherosclerosis of [place] coronary arter y, angina presence unspecified, unspecified whether [place] or transplanted heart Essential hypertension, malignant Diabetes mellitus due to underlying cond ition with diabetic nephropathy, 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
--- OUTSIDE RECORDS SUMMARY | 2022-02-13 11:15 | XMS_ITS | Encounter Summary ---
:1945 Author Organization [facility] [place] [address] Care Team Providers Name Role Phone Lovely Vicente MD Primary Care Provider Reason for Visit Auth/Cert Specialty Diagnoses / Procedures Referred By Contact Refer red To Contact Diagnoses Critical lower limb ischemia CELLULITIS RT FOOT Procedures EMERGENCY Referral ID Status Reason Start Date Expiration Date Visits Requ ested Visits Authorized [id number] 1 1 Encounter Details Date Type Department Care Team Description 08/06/2017 Laboratory Appointment Lab at [place] Ischemia [facility] [place] [address] Social History Tobacco Use Types Packs/Day [...] [facility] er Cardiology Dept [place], [place] [address] (Wo rk) 03/26/2022 Office Visit Cardiology Vitaliy Nobles MD [facility] ER CARDIOLOGY [place], [place] [address] (Wo rk) documented as of [...] Signature Prealbumin 19 (L) 20 - 40 [facility] mg[facility] Comment: Prealbumin levels are generally [...] Organization Address City/State/[place] [address] (ABNORMAL) Basic Metabolic Panel (non-fasting) (08/06/2017 12:32 PM EST) P athologist Signature Glucose Lvl 92 65 - 199 [facility] mg/dL [facility] Comment: Diabetes: >=200 mg/dL plus symp toms BUN 29 (H) 10 - 20 mg/dL [facility] Creatinine 1.33 0.80 - 1.50 mg/dL [facility] [...] Chloride 97 (L) 98 - 107 mmol/L [facility] CO2 25 22 - 31 mmol/L [facility] Anion Gap 16 (H) 5 - 15 mmol/L [facility] Calcium 8.5 8.5 - 10.5 mg/dL [facility]OR[facility]ORY Estimated GFR 53 (L) >=60 [facility] Comment: The reported eGFR should be multiplied b y 1.2 for patients. The MDRD is not an appropriate measure o f renal function for patients with body mass extremes or in patients with acute kidney failure. http://[employer]/DHnkdep http://[employer]/DHnkf Specimen Anatomical Collection Method Collection Time Receive d Time (Source) Location / / Volume Laterality Blood specimen 08/06/2017 12:32 8 1:15 (specimen) PM EST PM EST Resulting Agency Comment Spec In Lab Arik Clement MD CHEMISTRY ORDERABLES Performing Organization Address City/State/[place] [address] (ABNORMAL) Hemogram (08/06/2017 12:32 PM EST) Analysis Performed At Patho logist Time Signature WBC 11.8 (H) 4.0 - 9.5 [facility] x10(3)/[facility] [place] [facility] LABORATORY RBC 3.49 (L) 4.58 - [facility] 5.54 [facility] x10(6)/[facility] LABORATORY Hemoglobin 9.9 (L) 13.7 - [facility] 16.5 gm/dL [facility] Hematocrit 32.0 (L) 40.5 - [facility] 48.5 % [facility] MCV 91.7 82.9 - [facility] 93.[address] [facility] MCH 28.4 27.5 - [place] RYAN 32.[address] [facility] MCHC 30.9 (L) 32.0 - [facility] 35.7 gm/dL [facility] Platelets 326 145 - 357 [facility] x10(3)/[facility] [place] [facility] LABORATORY RDWSD 53.4 (H) 36.0 - [facility] 45.0 [facility] LABORATORY RDWCV 16.0 (H) 11.4 - [facility] 13.8 % [facility] MPV 9.1 7.6 - 12.9 [facility] LABORATORY nRBC % Auto 0.0 % [facility] LABORATORY nRBC Abs Auto 0.000 0.000 - [facility] 0.000 [facility] x10(3)/[facility] LABORATORY Specimen Anatomical Collection Method Collection Time Receive d Time (Source) Location / / Volume Laterality Blood specimen 08/06/2017 12:32 8 1:15 (specimen) PM EST PM EST Resulting Agency Comment Spec In Lab Arik Clement MD HEMATOLOGY ORDERABLES Performing Organization Address City/State/Z[place] [address] documented in this encounter Visit Diagnoses Diagnosis Ischemia of foot Unspecified circulatory system disorder documented in this encounter Care Teams Motor Vehicle Light Assembler Relationship Specialty Start Date End Date Lovely Vicente MD PCP - General 04/16/[address] [place] [address] documented as of this encounter
--- OUTSIDE RECORDS SUMMARY | 2022-02-13 11:15 | XMS_ITS | Encounter Summary ---
:1945 [place] [address] Care Team Providers Name Role Phone Lovely Vicente MD Primary Care Provider Encounter Details Date Type Department Care Team Description 07/29/2017 Telephone Pain Aurelia Crawford MD [facility] [place] [address] PAIN CLINIC [phone] [place], [place] [address] (Wo rk) Social History Tobacco [...] PA [facility] er Cardiology Dept [place], [place] [address] (Wo rk) 03/26/2022 Office Visit Cardiology Vitaliy Nobles MD [facility] CARDIOLOGY [place], [place] [address] (Wo rk) documented as of this encounter Visit Diagnoses Not on filedocumented in this encounter Care Teams Hand Hardener Relationship Specialty Start Date End Date Lovely Vicente MD PCP - General 04/16/[address] [place] [address] documented as of this encounter
--- OUTSIDE RECORDS SUMMARY | 2022-02-13 11:15 | XMS_ITS | Encounter Summary ---
:1945 [place] [address] Care Team Providers Name Role Phone Lovely Vicente MD Primary Care Provider Encounter Details Date Type Department Care Team Description 08/04/2017 Orders Only Cardiac Surgery Makayla Wilson APRN [facility] Jorge [facility] [place] [address] CARDIAC SURGERY [phone] [place], [place] [address] (Wo rk) Social History Tobacco [...] [facility] er Cardiology Dept [place], [place] [address] (Wo rk) 03/26/2022 Office Visit Cardiology Vitaliy Nobles MD [facility] CARDIOLOGY [place], [place] [address] (Wo rk) documented as of this encounter Visit Diagnoses Not on filedocumented in this encounter Care Teams Cnc Grinder Relationship Specialty Start Date End Date Lovely Vicente MD PCP - General 04/16/[address] [place] [address] [address] [facility] [place] [address] documented as of this encounter
--- OUTSIDE RECORDS SUMMARY | 2022-02-13 11:15 | XMS_ITS | Encounter Summary ---
:1945 [place] [address] Care Team Providers Name Role Phone Lovely Vicente MD Primary Care Provider Encounter Details Date Type Department Care Team Description 08/03/2017 Hospital Encounter Radiology Library at [place], Tommy Mijares [facility] [place] [address] VASCULAR SURGERY [phone] [place], [place] [address] (Wo rk) Social History Tobacco [...] mg by mouth 0 mg Capsule daily. ACCU-CHEK TERA PLUS 2-3 times daily 100 each 1 07/14/2017 TEST STRP Strip metFORMIN Take 1 tablet by mouth 60 tablet 12 07/15/2017 (GLUCOPHAGE) 850 mg 2 times daily (with Tablet meals). BD INSULIN PEN NEEDLE 1 each [...] PA [facility] Cardiology Dept [place], [place] [address] (Wo rk) 03/26/2022 Office Visit Cardiology Vitaliy Nobles MD [facility] CARDIOLOGY [place], [place] [address] (Wo rk) documented as of [...] Address City/State/ZIP Code Phon e Number RAD [place], [place] documented in this encounter Visit Diagnoses Diagnosis Pain Generalized pain documented in this encounter Care Teams Rib Cloth Knitter Relationship Specialty Start Date End Date Lovely Vicente MD PCP - General 04/16/[address] [place] [address] documented as of this encounter
--- OUTSIDE RECORDS SUMMARY | 2022-02-13 11:15 | XMS_ITS | Encounter Summary ---
:1945 Author Organization [facility] [place] [address] Care Team Providers Name Role Phone Lovely Vicente MD Primary Care Provider Reason for Visit Auth/Cert Specialty Diagnoses / Procedures Referred By Contact Refer red To Contact Diagnoses Critical lower limb ischemia CELLULITIS RT FOOT Procedures EMERGENCY Referral ID Status Reason Start Date Expiration Date Visits Requ ested Visits Authorized [id number] 1 1 Encounter Details Date Type Department Care Team Description 08/04/2017 Hospital Encounter XRay at [facility] Danette Maxwell Incisional pain [address] [place] [address] Dr Gomes, LEGAL AIDE [facility] [phone] CARDIOLOGY [place], [place] [address] Social History Tobacco Use Types [...] [facility] Cardiology Dept [place], [place] [address] (Wo rk) 03/26/2022 Office Visit Cardiology Vitaliy Nobles MD [facility] CARDIOLOGY [place], [place] [address] (Wo rk) documented as of [...] sensation documented in this encounter Care Teams Software Reliability Engineer Relationship Specialty Start Date End Date Lovely Vicente MD PCP - General 04/16/[address] [place] [address] [address] [place] [address] documented as of this encounter
--- OUTSIDE RECORDS SUMMARY | 2022-02-13 11:15 | XMS_ITS | Encounter Summary ---
:1945 [place] [address] Care Team Providers Name Role Phone Lovely Vicente MD Primary Care Provider Encounter Details Date Type Department Care Team Description 08/04/2017 Orders Only Cardiac Surgery Makayla Wilson APRN [facility] Jorge [facility] [place] [address] CARDIAC SURGERY [phone] [place], [place] [address] (Wo rk) Social History Tobacco [...] Liz Poole PA [facility] er Cardiology Dept [place], [place] [address] (Wo rk) 03/26/2022 Office Visit Cardiology Vitaliy Nobles MD [facility] CARDIOLOGY [place], [place] [address] (Wo rk) documented as of this encounter Visit Diagnoses Not on filedocumented in this encounter Care Teams Fire Claims Adjuster Relationship Specialty Start Date End Date Lovely Vicente MD PCP - General 04/16/[address] [place] [address] [address] [facility] [address] [place] [address] documented as of this encounter
--- OUTSIDE RECORDS SUMMARY | 2022-02-13 11:15 | XMS_ITS | Encounter Summary ---
:1945 Author Organization [facility] [place] [address] Care Team Providers Name Role Phone Lovely Vicente MD Primary Care Provider Encounter Details Date Type Department Care Team Description 07/29/2017 Transcribe Orders Laboratory Lovely Vicente MD [address] [address] [place], [place] [address] (Mikayla alcaraz) Social History Tobacco Use Types Packs/Day Years [...] PA [facility] er Cardiology Dept [place], [place] [address] (Wo rk) 03/26/2022 Office Visit Cardiology Vitaliy Nobles MD [facility] ER CARDIOLOGY [place], [place] [address] (Wo rk) documented as of this encounter Visit Diagnoses Not on filedocumented in this encounter Care Teams Wet Cotton Feeder Relationship Specialty Start Date End Date Lovely Vicente MD PCP - General 04/16/[address] [place] [address] documented as of this encounter
--- OUTSIDE RECORDS SUMMARY | 2022-02-13 11:15 | XMS_ITS | Encounter Summary ---
:1945 Author Organization [facility] [place] [address] Care Team Providers Name Role Phone Lovely Vicente MD Primary Care Provider Reason for Visit Auth/Cert Specialty Diagnoses / Procedures Referred By Contact Refer red To Contact Diagnoses Critical lower limb ischemia CELLULITIS RT FOOT Procedures EMERGENCY Referral ID Status Reason Start Date Expiration Date Visits Requ ested Visits Authorized [id number] 1 1 Encounter Details Date Type Department Care Team Description 08/04/2017 Laboratory Appointment Lab [address] [place] [address] Social History Tobacco Use Types Packs/Day [...] [facility] er Cardiology Dept [place], [place] [address] (Wo rk) 03/26/2022 Office Visit Cardiology Vitaliy Nobles MD [facility] ER CARDIOLOGY [place], [place] [address] (Wo rk) documented as of this encounter Visit Diagnoses Not on filedocumented in this encounter Care Teams Fermentation Operator Relationship Specialty Start Date End Date Lovely Vicente MD PCP - General 04/16/[address] [place] [address] documented as of this encounter
--- OUTSIDE RECORDS SUMMARY | 2022-02-13 11:15 | XMS_ITS | Encounter Summary ---
:1945 Author Organization [facility] [place] [address] Care Team Providers Name Role Phone Lovely Vicente MD Primary Care Provider Reason for Visit Reason Comments Follow-up Encounter Details Date Type Department Care Team Description 07/29/2017 Office Visit Cardiac Surgery at [facility] Yuan Retana MD S/P CABG x [address] [facility] [place] [address] CARDIOTHORACIC SURGERY [phone] [place], [place] [address] (Wo rk) Social History Tobacco [...] evaluation by vascular surgery. Yuan Retana MD [phone] documented in this encounter Plan of Treatment Upcoming Encounters Date Type Specialty Care Team Description 02/19/2022 Laboratory Appointment Lab 02/19/2022 Office Visit Cardiology Liz Poole PA [facility] Cardiology Dept [place], [place] [address] (Wo rk) 03/26/2022 Office Visit Cardiology Vitaliy Nobles MD [facility] CARDIOLOGY [place], [place] [address] (Wo rk) documented as of this encounter Visit Diagnoses Diagnosis S/P CABG x 3 Postsurgical aortocoronary bypass status documented in this encounter Care Teams Hop Weigher Relationship Specialty Start Date End Date Lovely Vicente MD PCP - General 9/22/[address] [place] [address] documented as of this encounter
--- OUTSIDE RECORDS SUMMARY | 2022-02-13 11:15 | XMS_ITS | Encounter Summary ---
:1945 Author Organization [facility] [place] [address] Care Team Providers Name Role Phone Lovely Vicente MD Primary Care Provider Encounter Details Date Type Department Care Team Description 07/24/2017 Telephone Vascular Surgery Melba Bob [facility] [place] [address] [facility] [phone] VASCULAR SURGERY [place], [place] [address] (Wo rk) Social History Tobacco [...] was discharged on Coumadin. ??He presented to [facility] on 07/20 with mottled toes on the [...] 02/19/2022 Office Visit Cardiology Liz Poole PA [facility] Medical [facility] er Cardiology Dept [place], [place] [address] (Wo rk) 03/26/2022 Office Visit Cardiology Vitaliy Nobles MD [facility] MEDICAL [facility] ER CARDIOLOGY [place], [place] [address] (Wo lissa) documented as of this encounter Visit Diagnoses Not on filedocumented in this encounter Care Teams Sole Tacker Relationship Specialty Start Date End Date Lovely Vicente MD PCP - General 04/16/[address] [place] [address] [address] [place] [address] documented as of this encounter
--- OUTSIDE RECORDS SUMMARY | 2022-02-13 11:15 | XMS_ITS | Encounter Summary ---
:1945 Author Organization [employer] [place] [address] Care Team Providers Name Role Phone Lovely Vicente MD Primary Care Provider Reason for Visit Reason Comments Pain Management Ankle Pain Toe Pain Encounter Details Date Type Department Care Team Description 07/30/2017 Office Visit Pain Management at [facility], Per ipheral neuropathy [place] DISHCLOTH FOLDER due to ischemia [facility] [address], [place], [place] [phone] Social History Tobacco Use Types Packs/Day Years [...] Soares APRN - 07/30/2017 1:45 PM EST [facility] [place] [address] Phone: PAIN MANAGEMENT NEW PATIENT / CONSULTATION NOTE DATE OF VISIT 07/30/2017 Patient Don Fatima 1945 REFERRING PROVIDER Lovely Vicente MD [address] [place] [id number] PRIMARY CARE PROVIDER Lovely Vicente MD CHIEF [...] much relief PAST THERAPIES: Nothing MEDICATIONS [facility] [place] Prescription Monitoring Program was checked and no [...] SETUP performed by Manny Mcknight MD at [facility] OR ??? PRO CABG, ARTERIAL, SINGLE N/A 07/07/2017 @CABG, USING ARTERIAL GRAFT;SINGLE ARTERIAL GRAFT (WRVU 33.75) performed by Yuan Retana MD at [facility] OR ??? PRO CABG, ARTERY-VEIN, TWO N/A 07/07/2017 @CABG, TWO VENOUS GRAFTS & ARTERIAL GRAFT (WRVU 7.93) performed by Yuan Retana MD at [facility] OR ??? PRO COLONOSCOPY, REMV LESN, SNARE 01/16/2014 COLONOSCOPY, POLYPECTOMY, REMOVAL LESION BY SNARE performed by Nohemi Jaimes MD at [facility] ENDOSCOPY ??? PRO ENDOSCOPY W/VIDEO-ASST VEIN HARVEST, CABG Right 07/07/2017 ENDOSCOPIC HARVEST VEIN(S) FOR CABG (WRVU 0.31) performed by Yuan Retana MD at [facility] OR ??? PRO THYROIDECTOMY 03/28/2013 THYROIDECTOMY, TOTAL [...] referral, Lovely Vicente MD [address] [place] [address]. [facility], MSN, WEIGHT TRAINING INSTRUCTOR-BC, DISHCLOTH FOLDER Nurse Practitioner [facility] documented in this encounter Plan of Treatment Upcoming Encounters Date Type Specialty Care Team Description 02/19/2022 Laboratory Appointment Lab 02/19/2022 Office Visit Cardiology Liz Poole PA [facility] er Cardiology Dept [place], [place] [address] (Wo rk) 03/26/2022 Office Visit Cardiology Vitaliy Nobles MD [facility] ER CARDIOLOGY [place], [place] [address] (Wo rk) documented as of this encounter Visit Diagnoses Diagnosis 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
--- OUTSIDE RECORDS SUMMARY | 2022-02-13 11:15 | XMS_ITS | Encounter Summary ---
:1945 Author Organization [place] [address] Care Team Providers Name Role Phone Lovely Vicente MD Primary Care Provider Reason for Visit Reason Comments Deep Vein Thrombosis Auth/Cert Specialty Diagnoses / Procedures Referred By Contact Refer red To Contact Diagnoses Critical lower limb ischemia CELLULITIS RT FOOT Procedures EMERGENCY Referral ID Status Reason Start Date Expiration Date Visits Requ ested Visits Authorized [id number] 1 1 Encounter Details Date Type Department Care Team Description 08/04/2017 Office Visit Vascular Surgery at [facility] itical lower limb [facility] ischemia [facility] [address] [place], [place] VASCULAR SURGERY [id number] [place] [address] [phone] Social History Tobacco Use Types Packs/Day Years [...] was discharged on Coumadin. ??He presented to [facility] on 07/20 with mottled toes on the [...] Office Visit Cardiology Liz Poole PA [facility] Cardiology Dept [place], [place] [address] (Wo lissa) 03/26/2022 Office Visit Cardiology Vitaliy Nobles MD [facility] CARDIOLOGY [place], [place] [address] (Mikayla alcaraz) documented as of this encounter Visit Diagnoses Diagnosis Critical lower limb ischemia Unspecified circulatory system disorder documented in this encounter Care Teams Glove Turner And Former Relationship Specialty Start Date End Date Lovely Vicente MD PCP - General 04/16/[address] [place] [address] documented as of this encounter
--- OUTSIDE RECORDS SUMMARY | 2022-02-13 11:15 | XMS_ITS | Encounter Summary ---
:1945 Author Organization [facility] [address] Care Team Providers Name Role Phone Lovely Vicente MD Primary Care Provider Reason for Visit Reason Comments Foot Ulcer WOUND CHECK Auth/Cert Specialty Diagnoses / Procedures Referred By Contact Refer red To Contact Diagnoses Critical lower limb ischemia CELLULITIS RT FOOT Procedures EMERGENCY Referral ID Status Reason Start Date Expiration Date Visits Requ ested Visits Authorized [id number] 1 1 Encounter Details Date Type Department Care Team Description 08/06/2017 [facility] ischemia [facility] [address] [place], [place] VASCULAR SURGERY [id number] [place] [address] [phone] Social History Tobacco Use Types Packs/Day Years [...] Smith MD - 08/06/2017 1:00 PM EST [facility] staff: 1. RIGHT leg CLI Interval [...] Visit Cardiology Liz Poole PA [facility] Cardiology Dept [place], [place] [address] (Wo rk) 03/26/2022 Office Visit Cardiology Vitaliy Nobles MD [facility] MEDICAL [facility] ER CARDIOLOGY [place], [place] [address] (Wo rk) documented as of this encounter Visit Diagnoses Diagnosis Critical lower limb ischemia Unspecified circulatory system disorder documented in this encounter Care Teams Can Vacuum Tester Relationship Specialty Start Date End Date Lovely Vicente MD PCP - General 04/16/[address] [place] [address] documented as of this encounter
--- OUTSIDE RECORDS SUMMARY | 2022-02-13 11:15 | XMS_ITS | Encounter Summary ---
:1945 Author Organization [facility] [place] [address] Care Team Providers Name Role Phone Lovely Vicente MD Primary Care Provider Reason for Visit Auth/Cert Specialty Diagnoses / Procedures Referred By Contact Refer red To Contact Diagnoses Critical lower limb ischemia CELLULITIS RT FOOT Procedures EMERGENCY Referral ID Status Reason Start Date Expiration Date Visits Requ ested Visits Authorized [id number] 1 1 Encounter Details Date Type Department Care Team Description 08/06/2017 Hospital En[facility] [place] [phone] Social History Tobacco Use Types Packs/Day [...] Poole PA [facility] Cardiology Dept [place], [place] [address] (Wo rk) 03/26/2022 Office Visit Cardiology Vitaliy Nobles MD [facility] CARDIOLOGY [place], [place] [address] (Wo rk) documented as of this encounter Visit Diagnoses Not on filedocumented in this encounter Care Teams Project Drilling Engineer Relationship Specialty Start Date End Date Lovely Vicente MD PCP - General 04/16/[address] [place] [address] documented as of this encounter
--- OUTSIDE RECORDS SUMMARY | 2022-02-13 11:15 | XMS_ITS | Encounter Summary ---
:1945 Author Organization [facility] [place] [address] Care Team Providers Name Role Phone Lovely Vicente MD Primary Care Provider Reason for Visit Reason Comments Foot Pain Auth/Cert Specialty Diagnoses / Procedures Referred By Contact Refer red To Contact Diagnoses Ischemic foot Procedures NAYE OBSVO Referral ID Status Reason Start Date Expiration Date Visits Requ ested Visits Authorized [id number] 1 1 Encounter Details Date Type Department Care Team Description 07/27/2017 Emergency 1 [facility] Lokesh Swenson MD [facility] [place] [address] Femoral artery pseudo-aneurysm, right; [facility] Tam Bauman MD [facility] [place] [address] [place] [address] Social History Tobacco Use Types Packs/Day [...] Gregory Fatima Patient Age: 72 y.o. Language: Congolese Race: White Ethnicity: Not nor Admit date: [...] please contact your inpatient physician through the [facility] Window Air Conditioner Installer . Issues after hours and on weekends [...] RLE critical limb ischemia, who presented to [facility] with worsening RLE pain. Pt post-op course after CABG was significant for paroxysmal Afib, and he was started on Coumadin given elevated [id number] score. He presented 2 weeks following that, on 07/20, with RLE pain/pallor andwas found to have critical limb ischemia in setting of subtherapeutic INR, pseudoaneurysm Rt RADIOLOGY AIDE and occlusion b/l ant tibial arteries. He [...] in the last 7068 hours. Invalid input(s): [id number] Recent Labs 07/08/17 0400 07/07/17 0515 07/06/17 [...] (it was low at 1.6 here at [facility]) 7. Use the tramadol if dilaudid or tylenol is not working 8. Stop taking the potassium supplement - your blood potassium level was elevated. Ask your doctors at future visits if this should be restarted. 9. Antibiotic for 5 days recommended by cardiothoracic surgery for chest wound drainage Follow-Up Appointments Vascular surgery as previously schedule Your Inpatient Doctor(s) at [facility]: CARLOS ALBERTO ROSALES MD General Instructions None Future Appointments and Orders Future Appointments Provider Department Dept Phone 07/30/2017 8:30 AM OSWALDO, THREE L Lab 3L [facility] [phone] 07/30/2017 9:40 AM Danette Maxwell APRN Cardiology [facility] [phone] 08/04/2017 1:00 PM Daniele Mooney [place] [facility] [phone] 08/04/2017 2:15 PM Arik Clement MD Vascular Surgery [facility] [phone] 08/11/2017 10:00 AM [facility] ROOM 2 XRay [facility] [phone] Please go to Insurance Sales Producer Area 3T ([facility] Location). 08/11/2017 11:00 AM Yuan Retana MD Cardiac Surgery [facility] [phone] 09/07/2017 3:00 PM LAB, THREE L Lab 3L [facility] [phone] 09/07/2017 4:00 PM Luz Prescott MD Endocrinology [facility] [phone] Discharge References/Attachments None documented in this encounter [...] (it was low at 1.6 here at [facility]) 3. Use the tramadol if dilaudid or tylenol is not working 4. Stop taking the potassium supplement - your blood potassium level was elevated. Ask your doctors at future visits if this should be restarted. 5. Antibiotic for 5 days recommended by cardiothoracic surgery for chest wound drainage Follow-Up Appointments Vascular surgery as previously schedule Your Inpatient Doctor(s) at [facility]: CARLOS ALBERTO ROSALES MD documented in this [...] Gas) No results found for: PHART, PO2ART, AQJ3HGB Assessment/Plan: 72 y.o. male s/p CABG in [...] intervention: Education Nutrition Recommendations: Recommend continuation of [facility], CHO2 diet order Patient and denied need [...] Orders Diet Daily Healthy Menu Choices/Cardiac diet ([facility]-Diet) 60/ CHO counting level 2 Frequency: Effective Now Number of Occurrences: Until Specified Admit Weight: 83.92 kg Estimated body mass index is 28.13 kg/(m^2) as calculated from the following: Height as of this encounter: 172.7 cm (5' 8). Weight as of this encounter: 83.9 kg (185 lb). [place] body weight: 68.4 kg (150 lb 12.7 [...] RLE critical limb ischemia, who presented to [facility] with worsening RLE pain. Visited with patient [...] spent >30 minutes (Day of Discharge Code 18986) involved in the final examination of the [...] Melanoma ID: 72 y.o. Male presents to [facility] with persistent pain b/l lower extremities History of Present Illness: HPI 72 y.o. male with PMH ASCVD s/p CABG (07/07/17), MARIA VICTORIA on CPAP QHS, HTN, HLD, DM2, with recent hospitalization for RLE critical limb ischemia, who presented to [facility] with worsening RLE pain. Pt post-op course after CABG was significant for paroxysmal Afib, and he was started on Coumadin given elevated [id number] score. He presented 2 weeks following that, on 07/20, with RLE pain/pallor andwas found to have critical limb ischemia in setting of subtherapeutic INR, pseudoaneurysm Rt RADIOLOGY AIDE and occlusion b/l ant tibial arteries. He [...] SETUP performed by Manny Mcknight MD at [facility] MA[facility] OR ??? PRO CABG, ARTERIAL, SINGLE N/A 07/07/2017 @CABG, USING ARTERIAL GRAFT;SINGLE ARTERIAL GRAFT (WRVU 33.75) performed by Yuan Retana MD at [facility] MA[facility] OR ??? PRO CABG, ARTERY-VEIN, TWO N/A 07/07/2017 @CABG, TWO VENOUS GRAFTS & ARTERIAL GRAFT (WRVU 7.93) performed by Yuan Retana MD at [facility] MA[facility] OR ??? PRO COLONOSCOPY, REMV LESN, SNARE 01/16/2014 COLONOSCOPY, POLYPECTOMY, REMOVAL LESION BY SNARE performed by Nohemi Jaimes MD at [facility] ENDOSCOPY ??? PRO ENDOSCOPY W/VIDEO-ASST VEIN HARVEST, CABG Right 07/07/2017 ENDOSCOPIC HARVEST VEIN(S) FOR CABG (WRVU 0.31) performed by Yuan Retana MD at [facility] OR ??? PRO THYROIDECTOMY 03/28/2013 THYROIDECTOMY, TOTAL OR COMPLETE performed by Manny Mcknight MD at [facility] OR Prior To Admission Medications: (Not [...] Procedure Component Value Units Date/Time Blood culture [[id number]] Collected: 07/09/1739 Lab Status: Final result Specimen: Blood from Arm, Right Updated: 07/14/17701 Blood Culture No growth at 5 days. Blood culture [[id number]] Collected: 07/09/170 Lab Status: Final result Specimen: [...] limb ischemia following CABG, who presented to [facility] ED from home with persistent B/L LE [...] Lantus BPH (not on meds): Psoriasis: MARIA VICOTRIA on CPAP QHS: JESICA. Home regimen continued Diet Daily Healthy Menu Choices/Cardiac diet ([facility]-Diet) 60/60/75 CHO counting level 2Cardiac, low salt, CHO 2 Discharge planning Pending improvement in pain control PT/OT/Speech PT ordered Lines/Access PIV Ocasio catheter No DVT/GI Prophylaxis Lovenox bridge to Coumadin, SCD. Code status Full Code Family PCP Lovely Vicente MD [phone] Attestation Please see my note for details [...] encounter Miscellaneous Notes Plan of Care - [place]Joy[place] Damian, PT - 07/27/2017 3:26 PM EST [...] Anticipated Discharge Disposition: home with assist Pager: [phone] JOYCE KING, PT Inpatient Physical Therapy 2017 [...] patient's evaluation including the following functional test(s) [facility]. Current ability measures, co-morbidities and clinical judgement [...] a lovenox bridge. Mr. Fatima returns to [facility] ED tonight because of ongoing pain in [...] SETUP performed by Manny Mcknight MD at [facility] OR ??? PRO CABG, ARTERIAL, SINGLE N/A 07/07/2017 @CABG, USING ARTERIAL GRAFT;SINGLE ARTERIAL GRAFT (WRVU 33.75) performed by Yuan Retana MD at [facility] OR ??? PRO CABG, ARTERY-VEIN, TWO N/A 07/07/2017 @CABG, TWO VENOUS GRAFTS & ARTERIAL GRAFT (WRVU 7.93) performed by Yuan Retana MD at [facility] OR ??? PRO COLONOSCOPY, REMV LESN, SNARE 01/16/2014 COLONOSCOPY, POLYPECTOMY, REMOVAL LESION BY SNARE performed by Nohemi Jaimes MD at [facility] ENDOSCOPY ??? PRO ENDOSCOPY W/VIDEO-ASST VEIN HARVEST, CABG Right 07/07/2017 ENDOSCOPIC HARVEST VEIN(S) FOR CABG (WRVU 0.31) performed by Yuan Retana MD at [facility] OR ??? PRO THYROIDECTOMY 03/28/2013 THYROIDECTOMY, TOTAL OR COMPLETE performed by Manny Mcknight MD at [facility] OR MEDICATIONS: No current facility-administered medications [...] up in clinic 1-2 weeks after discharge. [facility] Vascular Surgery Plan of Care - Jazmín [...] Visit Cardiology Liz Poole PA [facility] er Cardiology Dept [place], [place] [address] (Wo rk) 03/26/2022 Office Visit Cardiology Vitaliy Nobles MD [facility] CARDIOLOGY [place], [place] [address] (Wo rk) documented as of [...] section. TYPE AND SCREEN STAT 07/27/2017 12:53 ([facility]/CGP/SHANDA) AM EST BASIC METABOLIC PANEL STAT 07/27/2017 12:53 Re sults for this (NON-FASTING) AM EST procedure are in the results section. documented in this encounter Results POCT Glucose (07/27/2017 11:53 AM EST) P athologist Signature POC Glucose 175 65 - 199 [facility] mg/dL [facility] Comment: Supplemental ranges: <140 mg/dL before meals <180 mg/dL all other times of the day Specimen Anatomical Collection Method Collection Time Receive d Time (Source) Location / / Volume Laterality Blood specimen 07/27/2017 11:53 8 (specimen) AM EST 11:53 AM EST Tam Bauman MD POINT OF CARE TEST ORDERABLE S Performing Organization Address City/State/[place] [address] Arterial Duplex Leg, Unil (07/27/2017 7:40 AM EST) Component Value Ref Test Analysis Performed At Patholo gist Range Method Time Signature VB Text Department: Vascular Surgery Lab VASCUBASE Report Patient: [id number] (GREGORY FATIMA) CPT: 36533 ICD10: I97.610;I72.4;Z09 Referring Physician: TAM BAUMAN ?? [...] Bauman MD VASCULAR ORDERABLES Performing Organization Address City/[facility]/ZIP Code Phon e Number VASCUBASE POCT Glucose (07/27/2017 6:51 AM EST) P athologist Signature POC Glucose 96 65 - 199 [facility] mg/dL [facility] Comment: Supplemental ranges: <140 mg/dL before meals <180 mg/dL all other times of the day Specimen Anatomical Collection Method Collection Time Receive d Time (Source) Location / / Volume Laterality Blood specimen 07/27/2017 6:51 AM 018 6:51 (specimen) EST AM EST Tam Bauman MD POINT OF CARE TEST ORDERABLE S Performing Organization Address City/[facility]/ZIP [facility] Phon e Number [address] ABORH Recheck Status (07/27/2017 12:53 AM EST) Patholo gist Method Time Signature ABORH Type Completed [facility] LABORATORY Specimen Anatomical Collection Method Collection Time Receive d Time (Source) Location / / Volume Laterality Blood specimen 07/27/2017 12:53 8 (specimen) AM EST 12:58 AM EST Resulting Agency Comment Spec In Lab Angela Swenson MD BLOOD BANK ORDERABLES Performing Organization Address City/[facility]/ZIP Code Phon e Number [address] Gold Tube HOLD (07/27/2017 12:53 AM EST) P athologist Signature Gold Hold Sample in [facility] LABORATORY Specimen Anatomical Collection Method Collection Time Receive d Time (Source) Location / / Volume Laterality Blood specimen Venous Draw / 07/27/2017 12:53 07/27/19 18 1:01 (specimen) Unknown AM EST AM EST Angela Swenson MD CHEMISTRY ORDERABLES Performing Organization Address City/State/ZIP Code Phon e Number [place] [phone] (ABNORMAL) Differential, Automated (07/27/2017 12:53 AM EST) [facility] Method Time Signature Neutrophils % 75.0 % [facility] Neutr Abs (ANC) 11.30 (H) 1.70 - [facility] 6.10 [facility] x10(3)/[facility] [place] LABORATORY Lymphocytes % 9.9 % [facility] Lymphocytes Abs 1.5 0.9 - 3.2 [facility] x10(3)/[facility] LABORATORY Monocytes % 8.6 % [facility] Monocyte Abs 1.3 (H) 0.3 - 0.9 [facility] x10(3)/[facility] LABORATORY Eosinophils % 4.8 % [facility] Eosinophils Abs 0.7 (H) 0.0 - 0.4 [facility] x10(3)/[facility] LABORATORY Basophils % 0.8 % [facility] Basophils Abs 0.1 0.0 - 0.1 [facility] x10(3)/[facility] LABORATORY Immature Gran % 0.90 % [facility] Comment: Immature granulocytes(IG's)percentage an d absolute count will include metamyelocytes, myelocytes, and promyelo cytes. Blood smears from CBCs yielding IG's will be scanned manually for concor dance. If this scan disagrees with the automated IG or if promyelocytes are not ed, a manual differential will be performed. Melisa Gran Abs 0.13 (H) 0.00 - 0.04 x10(3)/[facility] LABORATORY Specimen Anatomical Collection Method Collection Time Receive d Time (Source) Location / / Volume Laterality Blood specimen 07/27/2017 12:53 8 1:00 (specimen) AM EST AM EST Resulting Agency Comment Spec In Lab Angela Swenson MD HEMATOLOGY ORDERABLES Performing Organization Address City/State/ZIP Code Phon e Number [place] [phone] (ABNORMAL) Hemogram (07/27/2017 12:53 AM EST) Analysis Performed At Patho logist Time Signature WBC 15.0 (H) 4.0 - 9.5 [facility] x10(3)/[facility] LABORATORY RBC 3.59 (L) 4.58 - [place] 5.54 [facility] x10(6)/[facility] LABORATORY Hemoglobin 10.3 (L) 13.7 - [facility] 16.5 gm/dL [facility] Hematocrit 32.6 (L) 40.5 - [facility] 48.5 % [facility] MCV 90.8 82.9 - [facility] 93.1 [facility] LABORATORY MCH 28.7 27.5 - [place] 32.1 pg [facility] MCHC 31.6 (L) 32.0 - [facility] 35.7 gm/dL [facility] Platelets 322 145 - 357 [facility] x10(3)/[facility] LABORATORY RDWSD 48.7 (H) 36.0 - [facility] 45.0 [facility] LABORATORY RDWCV 14.7 (H) 11.4 - [facility] RYAN 13.8 % [facility] MPV 8.9 7.6 - 12.9 [facility] LABORATORY nRBC % Auto 0.0 % [facility] nRBC Abs Auto 0.000 0.000 - [place] 0.000 [facility] x10(3)/[facility] LABORATORY Specimen Anatomical Collection Method Collection Time Receive d Time (Source) Location / / Volume Laterality Blood specimen 07/27/2017 12:53 8 1:00 (specimen) AM EST AM EST Resulting Agency Comment Spec In Lab Angela Swenson MD HEMATOLOGY ORDERABLES Performing Organization Address City/State/[place] [address] Antibody screen (07/27/2017 12:53 AM EST) Patholo gist Method Time Signature Ab Screen Negative [facility] LABORATORY Expires at 07/30/2017 K[place]INA DAVIS [id number] on: [facility] Specimen Anatomical Collection Method Collection Time Receive d Time (Source) Location / / Volume Laterality Blood specimen 07/27/2017 12:53 8 (specimen) AM EST 12:58 AM EST Resulting Agency Comment Spec In Lab Angela Swenson MD BLOOD BANK ORDERABLES Performing Organization Address City/[facility]/[place] [address] ABO/Rh Typing (07/27/2017 12:53 AM EST) P athologist Signature ABORh Type O Pos [facility] Specimen Anatomical Collection Method Collection Time Receive d Time (Source) Location / / Volume Laterality Blood specimen 07/27/2017 12:53 8 (specimen) AM EST 12:58 AM EST Resulting Agency Comment Spec In Lab Angela Swenson MD BLOOD BANK ORDERABLES Performing Organization Address [facility] [place] [address] (ABNORMAL) Prothrombin Time (07/27/2017 12:53 AM EST) P athologist Signature PT 19.1 (H) 11.8 - 14.0 [facility] LABORATORY INR 1.6 (H) 0.9 - 1.1 [facility] [...] Swenson MD HEMATOLOGY ORDERABLES Performing Organization Address City/[facility] [place] [address] (ABNORMAL) Basic Metabolic Panel (non-fasting) (07/27/2017 12:53 AM EST) P athologist Signature Glucose Lvl 95 65 - 199 [facility] mg/dL [facility] Comment: Diabetes: >=200 mg/dL plus symp toms BUN 37 (H) 10 - 20 mg/dL [facility] Creatinine 1.49 0.80 - 1.50 mg/dL [facility]OR[facility]ORY Sodium 137 135 - 145 mmol/L [facility] Potassium 5.1 (H) 3.5 - 5.0 mmol/L [facility] Comment: Please note: ??Patients with WBC >100,00 0 may have falsely elevated Potassium levels. ??For accurate Potassium quantif ication in these patients send serum separator tube (gold top) for subsequent determinations. ??Contact the Clinical Chemistry Laboratory if there are any qu estions. Chloride 96 (L) 98 - 107 mmol/L [facility] CO2 28 22 - 31 mmol/L [facility] Anion Gap 13 5 - 15 mmol/L [facility] Calcium 8.6 8.5 - 10.5 mg/dL [facility] Estimated GFR 46 (L) >=60 [facility] Comment: The reported eGFR should be multiplied b y 1.2 for patients. The MDRD is not an appropriate measure o f renal function for patients with body mass extremes or in patients with acute kidney failure. 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
Routine documented in this encounter Care Teams Director Of Market Analysis Relationship Specialty Start Date End Date Lovely Vicente MD PCP - General 04/16/[address] [place] [address] [address] [place] [address] documented as of this encounter
--- OUTSIDE RECORDS SUMMARY | 2022-02-13 11:15 | XMS_ITS | Encounter Summary ---
:1945 Author Organization [facility] [place] [address] Care Team Providers Name Role Phone Lovely Vicente MD Primary Care Provider Reason for Visit Auth/Cert Specialty Diagnoses / Procedures Referred By Contact Refer red To Contact Diagnoses Critical lower limb ischemia CELLULITIS RT FOOT Procedures EMERGENCY Referral ID Status Reason Start Date Expiration Date Visits Requ ested Visits Authorized [id number] 1 1 Encounter Details Date Type Department Care Team Description 08/06/2017 Clinical Support Same Day at [facility] Ischemia of foot [facility] [place] [address] Social History Tobacco Use Types Packs/Day [...] noother symptoms except severe right foot pain. [facility] clinic called as pt on route there [...] [facility] er Cardiology Dept [place], [place] [address] (Wo rk) 03/26/2022 Office Visit Cardiology Vitaliy Nobles MD [facility] CARDIOLOGY [place], [place] [address] (Wo rk) documented as of [...] 444 ms MUSE SYSTEM (Bezet) Calculated P [place] 44 degrees MUSE SYSTEM Calculated R [place] -31 degrees MUSE SYSTEM Calculated T [place] 106 degrees MUSE SYSTEM INTERPRETATION Normal sinus [...] disorder documented in this encounter Care Teams Executive Cyber Leader Relationship Specialty Start Date End Date Lovely Vicente MD PCP - General 04/16/[address] [place] [address] documented as of this encounter
--- OUTSIDE RECORDS SUMMARY | 2022-02-13 11:15 | XMS_ITS | Encounter Summary ---
:1945 Author Organization [facility] [place] [address] Care Team Providers Name Role Phone Lovely Vicente MD Primary Care Provider Encounter Details Date Type Department Care Team Description 07/29/2017 Transcribe Orders Laboratory Lovely Vicente MD [address] [address] [place], [place] [address] (Mikayla alcaraz) Social History Tobacco Use Types [...] Poole PA [facility] er Cardiology Dept [place], [place] [address] (Wo rk) 03/26/2022 Office Visit Cardiology Vitaliy Nobles MD [facility] ER CARDIOLOGY [place], [place] [address] (Wo rk) documented as of this encounter Visit Diagnoses Not on filedocumented in this encounter Care Teams Police Patrol Officer Relationship Specialty Start Date End Date Lovely Vicente MD PCP - General 04/16/[address] [place] [address] documented as of this encounter
--- OUTSIDE RECORDS SUMMARY | 2022-02-13 11:15 | XMS_ITS | Encounter Summary ---
:1945 Author Organization [facility] [place] [address] Care Team Providers Name Role Phone Lovely Vicente MD Primary Care Provider Reason for Visit Auth/Cert Specialty Diagnoses / Procedures Referred By Contact Refer red To Contact Diagnoses Critical lower limb ischemia CELLULITIS RT FOOT Procedures EMERGENCY Referral ID Status Reason Start Date Expiration Date Visits Requ ested Visits Authorized [id number] 1 1 Encounter Details Date Type Department Care Team Description 08/04/2017 [facility] [place] thrombosis of [facility] [place] [phone] Social History Tobacco Use Types Packs/Day Years [...] C, (VITAMIN C) 500 mg daily. 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 documented in this encounter Results Duplex for DVT, Leg, Unilat (08/04/2017 1:08 PM EST) Component Value Ref Test Analysis Performed At [facility] Range Method Time Signature VB Text Department: Vascular Surgery Lab VASCUBASE Report Patient: [id number] (DON HOANG) CPT: 09180 ICD10: I82.541 Referring Physician: TAMIKO HUTSON ?? [...] extremity documented in this encounter Care Teams Executive Account Manager Relationship Specialty Start Date End Date Lovely Vicente MD PCP - General 04/16/[address] [place] [address] documented as of this encounter
--- OUTSIDE RECORDS SUMMARY | 2022-02-13 11:15 | XMS_ITS | Encounter Summary ---
:1945 [place] [address] Care Team Providers Name Role Phone Lovely Vicente MD Primary Care Provider Encounter Details Date Type Department Care Team Description 08/04/2017 Notes Only Cardiac Surgery Makayla Wilson APRN [facility] [place] [address] CARDIAC SURGERY [phone] [place], [place] [address] (Wo rk) Social History Tobacco [...] Poole [facility] [place] [place] [address] (Wo rk) 03/26/2022 Office Visit Cardiology Vitaliy Nobles MD [facility] ER CARDIOLOGY [place], [place] [address] (Wo rk) documented as of this encounter Visit Diagnoses Not on filedocumented in this encounter Care Teams Research Epidemiologist Relationship Specialty Start Date End Date Lovely Vicente MD PCP - General 04/16/[address] [place] [address] documented as of this encounter
--- OUTSIDE RECORDS SUMMARY | 2022-02-13 11:15 | XMS_ITS | Encounter Summary ---
:1945 Author Organization [place] [address] Care Team Providers Name Role Phone Lovely Vicente MD Primary Care Provider Encounter Details Date Type Department Care Team Description 08/06/2017 Orders Only Vascular Surgery at [facility] Eden Moss APRN Ischemia of foot [facility] [place] [address] VASCULAR SURGERY [phone] [place], [place] [address] (Wo rk) Social History Tobacco [...] [facility] er Cardiology Dept [place], [place] [address] (Wo rk) 03/26/2022 Office Visit Cardiology Vitaliy Nobles MD [facility] ER CARDIOLOGY [place], [place] [address] (Wo rk) documented as of [...] 444 ms MUSE SYSTEM (Bezet) Calculated P [place] 44 degrees MUSE SYSTEM Calculated R [place] -31 degrees MUSE SYSTEM Calculated T [place] 106 degrees MUSE SYSTEM INTERPRETATION Normal sinus [...] Clement MD ECG ORDERABLES Performing Organization Address City/[facility]/ZIP Code Phon e Number MUSE SYSTEM (ABNORMAL) Prealbumin (08/06/2017 12:32 PM EST) P athologist Signature Prealbumin 19 (L) 20 - 40 [facility] mg/dL [facility] Comment: Prealbumin levels are generally lower in the pediatric population; adult concentrations are usually attained near puberty. Specimen Anatomical Collection Method Collection Time Receive d Time (Source) Location / / Volume Laterality Blood specimen 08/06/2017 12:32 8 1:15 (specimen) PM EST PM EST Resulting Agency Comment Spec In Lab Arik Clement MD CHEMISTRY ORDERABLES Performing Organization Address City/[facility]/ZIP [facility] [place] [address] (ABNORMAL) Basic Metabolic Panel (non-fasting) (08/06/2017 12:32 PM EST) P athologist Signature Glucose Lvl 92 65 - 199 [facility] mg/dL [facility] Comment: Diabetes: >=200 mg/dL plus symp toms BUN 29 (H) 10 - 20 mg/dL [facility] Creatinine 1.33 0.80 - 1.50 mg/dL [facility] Sodium 138 135 - [...] Gap 16 (H) 5 - 15 mmol/L [facility] Calcium 8.5 8.5 - 10.5 mg/dL [facility] Estimated GFR 53 (L) >=60 [facility] Comment: The reported eGFR should be multiplied b y 1.2 for patients. The MDRD is not an appropriate measure o f renal function for patients with body mass extremes or in patients with acute kidney failure. http://DXY.Style for Hire/DHnkdep http://DXY.Style for Hire/DHMCnkf Specimen Anatomical Collection Method Collection Time Receive d Time (Source) Location / / Volume Laterality Blood specimen 08/06/2017 12:32 8 1:15 (specimen) PM EST PM EST Resulting Agency Comment Spec In Lab Arik Clement MD CHEMISTRY ORDERABLES Performing Organization Address City/State/ZIP Code Phon e Number [facility] [place] [address] (ABNORMAL) Hemogram (08/06/2017 12:32 PM EST) Analysis Performed At Patho logist Time Signature WBC 11.8 (H) 4.0 - 9.5 [facility] x10(3)/[facility] LABORATORY RBC 3.49 (L) 4.58 - [facility] 5.54 [facility] x10(6)/[facility] LABORATORY Hemoglobin 9.9 (L) 13.7 - [facility] 16.5 gm/dL [facility] Hematocrit 32.0 (L) 40.5 - [facility] 48.5 % [facility] MCV 91.7 82.9 - [facility] 93.1 [facility] LABORATORY MCH 28.4 27.5 - [facility] 32.1 pg [facility] MCHC 30.9 (L) 32.0 - [facility] 35.7 gm/dL [facility] Platelets 326 145 - 357 [facility] x10(3)/[facility] LABORATORY RDWSD 53.4 (H) 36.0 - [facility] 45.0 [facility] LABORATORY RDWCV 16.0 (H) 11.4 - [facility] 13.8 % [facility] MPV 9.1 7.6 - 12.9 [facility] LABORATORY nRBC % Auto 0.0 % [facility] LABORATORY nRBC Abs Auto 0.000 0.000 - [facility] 0.000 [facility] x10(3)/[facility] LABORATORY Specimen Anatomical Collection Method Collection Time Receive d Time (Source) Location / / Volume Laterality Blood specimen 08/06/2017 12:32 8 1:15 (specimen) PM EST PM EST Resulting Agency Comment Spec In Lab Arik Clement MD HEMATOLOGY ORDERABLES Performing Organization Address City/State/[place] [address] documented in this encounter Visit Diagnoses Diagnosis Ischemia of foot Unspecified circulatory system disorder documented in this encounter Care Teams Erisa Attorney Relationship Specialty Start Date End Date Lovely Vicente MD PCP - General 04/16/[address] [place] [address] documented as of this encounter
--- OUTSIDE RECORDS SUMMARY | 2022-02-13 11:15 | XMS_ITS | Encounter Summary ---
:1945 [place] [address] Care Team Providers Name Role Phone Lovely Vicente MD Primary Care Provider Encounter Details Date Type Department Care Team Description 07/29/2017 Hospital Encounter Vascular Lab at Critic monica Huber lower limb [facility] [place] [phone] Social History Tobacco Use Types Packs/Day Years [...] MINI 31 gauge x 4 times daily. 3/ Needle lidocaine (LIDODERM) 5 Apply 1 patch [...] [facility] [place], [place] [address] (Wo rk) 03/26/2022 Office Visit Cardiology Vitaliy Nobles MD [facility] CARDIOLOGY [place], [place] [address] (Wo rk) documented as of this encounter Visit Diagnoses Diagnosis Critical lower limb ischemia Unspecified circulatory system disorder documented in this encounter Care Teams Line Up Machine Operator Relationship Specialty Start Date End Date Lovely Vicente MD PCP - General 04/16/[address] [place] [address] [address] [facility] [place] [address] documented as of this encounter
--- OUTSIDE RECORDS SUMMARY | 2022-02-13 11:15 | XMS_ITS | Encounter Summary ---
:1945 [place] [address] Care Team Providers Name Role Phone Lovely Vicente MD Primary Care Provider Encounter Details Date Type Department Care Team Description 08/05/2017 Notes Only Vascular Surgery at [facility] Eden Moss, STACIE [facility] [place] [address] VASCULAR SURGERY [phone] [place], [place] [address] (Wo rk) Social History Tobacco [...] [facility] [place], [place] [address] (Wo rk) 03/26/2022 Office Visit Cardiology Vitaliy Nobles MD [facility] ER CARDIOLOGY [place], [place] [address] (Wo rk) documented as of this encounter Visit Diagnoses Not on filedocumented in this encounter Care Teams Reservations Agent Relationship Specialty Start Date End Date Lovely Vicente MD PCP - General 04/16/[address] [place] [address] documented as of this encounter
--- OUTSIDE RECORDS SUMMARY | 2022-02-13 11:15 | XMS_ITS | Encounter Summary ---
:1945 Author Organization [facility] [place] [address] Care Team Providers Name Role Phone Lovely Vicente MD Primary Care Provider Encounter Details Date Type Department Care Team Description 08/03/2017 Telephone Pain Management at [place], [place] [address] Social History Tobacco Use Types Packs/Day [...] Management Center Preauthorization Request Patient: Don Fatima [id number] Fax received from [facility] requesting we obtain prior authorization for Lidocaine Patches prescribed by Barbra Soares APRN. RX insurance plan: [facility] insurance telephone: [phone] Patient ?? Diagnosis: right foot pain secondary to PVD and ischemia ?? Previous medications attempted: Tylenol, Tramadol, Dilaudid Authorization/Reference number: [id number], PBP Code 801 _x_ denied, provider and patient informed _x_ appeal initiated by provider, patient informed [place] Rodrigez, RN documented in this encounter Plan of Treatment Upcoming Encounters Date Type Specialty Care Team Description 02/19/2022 Laboratory Appointment Lab 02/19/2022 Office Visit Cardiology Liz Poole PA [facility] Dept [place], [place] [address] (Wo rk) 03/26/2022 Office Visit Cardiology Vitaliy Nobles MD [facility] ER CARDIOLOGY [place], [place] [address] (Wo rk) documented as of this encounter Visit Diagnoses Not on filedocumented in this encounter Care Teams Knockout Man Relationship Specialty Start Date End Date Lovely Vicente MD PCP - General 04/16/15 [facility] [address] [place] [address] documented as of this encounter
--- OUTSIDE RECORDS SUMMARY | 2022-02-13 11:15 | XMS_ITS | Encounter Summary ---
:1945 Author Organization [facility] [place] [address] Care Team Providers Name Role Phone Lovely Vicente MD Primary Care Provider Encounter Details Date Type Department Care Team Description 08/02/2017 Telephone Pain Management at [facility] [place], [place] [address] Social History Tobacco Use Types Packs/Day [...] Management Center Preauthorization Request Patient: Don Fatima [id number] Fax received from [facility] requesting we obtain prior authorization for Lidocaine patches prescribed by Barbra Soares APRN. RX insurance plan: [employer] insurance telephone: [phone] Patient Diagnosis: right foot pain secondary to PVD and ischemia Previous medications attempted: Tylenol, Tramadol, Dilaudid The following action was taken after discussion with the conference services director: _x_ pharmacy informed Authorized dosage or amount: 5% on patch on for 12 hours, then remove for 12 hours. Angeles Rodrigez, RN documented in this encounter Plan of Treatment Upcoming Encounters Date Type Specialty Care Team Description 02/19/2022 Laboratory Appointment Lab 02/19/2022 Office Visit Cardiology Liz Poole PA [facility] er Cardiology Dept [place], [place] [address] (Wo rk) 03/26/2022 Office Visit Cardiology Vitaliy Nobles MD [facility] ER CARDIOLOGY [place], [place] [address] (Wo rk) documented as of this encounter Visit Diagnoses Not on filedocumented in this encounter Care Teams Fur Mixer Relationship Specialty Start Date End Date Lovely Vicente MD PCP - General 04/16/[address] [place] [address] documented as of this encounter
--- OUTSIDE RECORDS SUMMARY | 2022-02-13 11:15 | XMS_ITS | Encounter Summary ---
:1945 [place] [address] Care Team Providers Name Role Phone Lovely Vicente MD Primary Care Provider Encounter Details Date Type Department Care Team Description 08/04/2017 Notes Only Cardiac Surgery Makayla Wilson REJECT OPENER AND FILLER [facility] [place] [address] CARDIAC SURGERY [phone] [place], [place] [address] (Wo rk) Social History Tobacco [...] Liz Poole PA [facility] [place], [place] [address] (Wo rk) 03/26/2022 Office Visit Cardiology Vitaliy Nobles MD [facility] ER CARDIOLOGY [place], [place] [address] (Wo rk) documented as of this encounter Visit Diagnoses Not on filedocumented in this encounter Care Teams Offshore Wind Turbine Technician Relationship Specialty Start Date End Date Lovely Vicente MD PCP - General 04/16/15 [address] [place] [address] documented as of this encounter
--- OUTSIDE RECORDS SUMMARY | 2022-02-13 11:15 | XMS_ITS | Encounter Summary ---
:1945 Author Organization [facility] Address [facility] [place] [address] Care Team Providers Name Role Phone Lovely Vicente MD Primary Care Provider Reason for Visit Auth/Cert Specialty Diagnoses / Procedures Referred By Contact Refer red To Contact Diagnoses Critical lower limb ischemia CELLULITIS RT FOOT Procedures EMERGENCY Referral ID Status Reason Start Date Expiration Date Visits Requ ested Visits Authorized [id number] 1 1 Encounter Details Date Type Department Care Team Description 08/04/2017 Laboratory Lab 3L [place] Cardiomyopathy, unspecified type; Appointment [facility] Systolic congestive heart failure, unspecified congestive heart failure chronicity; Hospital Coronary artery rupture; [facility] Ischemic cardiomyopathy; Drive Atherosclerosis of [place] co ronary artery, angina presence unspecified, unspecified whether [place] or transplanted heart; [place], [place] Essential hyper tension, malignant; [id number] 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 PROTHROMBIN TIME Routine 08/04/2017 12:55 Coronary artery Resu lts for this PM EST rupture procedure are in Ischemic the results cardiomyopathy section. Atherosclerosis of [place] coronary artery, angina presence unspecified, unspecified whether [place] or transplanted heart URIC ACID Routine 08/04/2017 [...] with the results diabetic section. nephropathy, unspecified detention insulin use status Essential hypertension, malignant COMPREHENSIVE Routine 08/04/2017 12:55 Essential Results fo r this METABOLIC PANEL PM EST hypertension, procedure a re in (NON-FASTING) malignant the results section. documented in this encounter Results Uric acid (08/04/2017 12:55 PM EST) athologist Signature Uric Acid 7.1 3.5 - 8.5 [facility] mg/dL [facility] Specimen Anatomical Collection Method Collection Time Receive d Time (Source) Location / / Volume Laterality Blood specimen 08/04/2017 12:55 8 1:01 (specimen) PM EST PM EST Resulting Agency Comment Spec In Lab Lovely Vicente MD CHEMISTRY ORDERABLES Performing Organization Address City/State/[place] [address] (ABNORMAL) Hemogram (08/04/2017 12:55 PM EST) Analysis Performed At Patho logist Time Signature WBC 15.8 (H) 4.0 - 9.5 [facility] x10(3)/[facility] LABORATORY RBC 3.48 (L) 4.58 - [facility] x10(6)/[facility] LABORATORY Hemoglobin 9.9 (L) 13.7 - [facility] 16.5 gm/dL [facility] Hematocrit 31.4 (L) 40.5 - [facility] 48.5 % [facility] MCV 90.2 82.9 - [facility] 93.1 [facility] LABORATORY MCH 28.4 27.5 - [place] RYAN 32.1 pg [facility] MCHC 31.5 (L) 32.0 - [facility] 35.7 gm/dL [facility] Platelets 310 145 - 357 [facility] x10(3)/[facility] LABORATORY RDWSD 51.8 (H) 36.0 - [facility] 45.0 [facility] LABORATORY RDWCV 15.8 (H) 11.4 - [facility] 13.8 % [facility] MPV 8.9 7.6 - 12.9 [facility] LABORATORY nRBC % Auto 0.0 % [facility]OR[facility]ORY nRBC Abs Auto 0.000 0.000 - [facility] [address] [facility] x10(3)/[facility] LABORATORY Specimen Anatomical Collection Method Collection Time Receive d Time (Source) Location / / Volume Laterality Blood specimen 08/04/2017 12:55 8 1:01 (specimen) PM EST PM EST Resulting Agency Comment Spec In Lab Lovely Vicente MD HEMATOLOGY ORDERABLES Performing Organization Address City/State/[place] [address] (ABNORMAL) Comprehensive metabolic panel (non-fasting) (08/04/2017 12:55 PM EST) P athologist Signature Glucose Lvl 208 (H) 65 - 199 [facility] mg/dL [facility] Comment: Diabetes: >=200 mg/dL plus symp toms BUN 32 (H) 10 - 20 mg/dL [facility] Creatinine 1.58 (H) 0.80 - 1.50 mg/dL [facility] Sodium 136 135 - 145 mmol/L [facility] Potassium 5.5 (H) 3.5 - 5.0 mmol/L [facility] [...] [facility] Anion Gap 14 5 - 15 mmol/L [facility] Calcium 8.6 8.5 - 10.5 mg/dL [facility] Total Protein 6.9 6.1 - 8.0 gm/dL [facility] Albumin 3.4 3.2 - 5.2 gm/dL [facility] AST 20 0 - 39 unit/L [facility] ALT 21 0 - 55 unit/L [facility] Alk Phos 93 40 - 120 unit/L [facility] Total Bilirubin 0.4 0.2 - 1.3 mg/dL [facility] Estimated GFR 43 (L) >=60 [facility] Comment: The reported eGFR should be multiplied b y 1.2 for patients. The MDRD is not an appropriate measure o f renal function for patients with body mass extremes or in patients with acute kidney failure. [email or web address] [email or web address]://KokoChi/DHnkf Specimen Anatomical Collection Method Collection Time Receive d Time (Source) Location / / Volume Laterality Blood specimen 08/04/2017 12:55 8 1:01 (specimen) PM EST PM EST Resulting Agency Comment Spec In Lab Lovely Vicente MD CHEMISTRY ORDERABLES Performing Organization Address City/State/ZIP Code Phon e Number [place] [id number] [address] (ABNORMAL) Hemoglobin A1c (08/04/2017 12:55 PM EST) Analysis Performed At Patho [facility] Time Signature Hemoglobin A1C 6.2 (H) 4.3 - 5.6 [facility] Comment: Reference Range: 4.3 [...] Mellitus, Diabetes Care 2013; 36: Suppl. 1, M87-07 Est Avg Gluc See note mg/dL [facility] Comment: Estimated Average Glucose not [...] into estimated average glucose values. ??Diabetes Care 2008:31(8):0605-6497. Specimen Anatomical Collection Method Collection Time Receive d Time (Source) Location / / Volume Laterality Blood specimen 08/04/2017 12:55 8 1:01 (specimen) PM EST PM EST Resulting Agency Comment Spec In Lab Lovely Vicente MD CHEMISTRY ORDERABLES Performing Organization Address [facility] [address] (ABNORMAL) Prothrombin Time (08/04/2017 12:55 PM EST) P athologist Signature PT 35.4 (H) 11.8 - 14.0 [facility] LABORATORY INR 3.5 (H) 0.9 - 1.1 [facility] Comment: An INR <2.0 [...] Vicente MD HEMATOLOGY ORDERABLES Performing Organization Address [facility] [place] [address] (ABNORMAL) pro-Brain Natriuretic Peptide (08/04/2017 12:55 PM EST) P athologist Signature ProBNP 3,133 (H) <=125 [facility] pg/mL [facility] Specimen Anatomical Collection Method Collection Time Receive d Time (Source) Location / / Volume Laterality Blood specimen 08/04/2017 12:55 8 1:01 (specimen) PM EST PM EST Resulting Agency Comment Spec In Lab Danette Maxwell APRN CHEMISTRY ORDERABLES Performing Organization Address City/State/ZIP [place] [address] documented in this encounter Visit Diagnoses Diagnosis Cardiomyopathy, unspecified type Systolic congestive heart failure, unspe cified congestive heart failure chronicity Coronary artery rupture Acute myocardial infarction, unspecified site, episode of care unspecified Ischemic cardiomyopathy Other specified forms of chronic ischemi c heart disease Atherosclerosis of [place] coronary arter y, angina presence unspecified, unspecified whether [place] or transplanted heart Essential hypertension, malignant Diabetes mellitus due to underlying cond ition with diabetic nephropathy, unspecified detention insulin use status documented in this encounter Care Teams Rib Bender Relationship Specialty Start Date End Date Lovely Vicente MD PCP - General 04/16/[address] [place] [address] documented as of this encounter
--- OUTSIDE RECORDS SUMMARY | 2022-02-13 11:15 | XMS_ITS | Encounter Summary ---
:1945 [place] [address] Care Team Providers Name Role Phone Lovely Vicente MD Primary Care Provider Encounter Details Date Type Department Care Team Description 08/03/2017 Hospital Encounter Radiology [facility] at [place], Tommy Mijares [facility] [place] [address] VASCULAR SURGERY [phone] [place], [place] [address] (Wo rk) Social History Tobacco [...] [facility] Cardiology Dept [place], [place] [address] (Wo rk) 03/26/2022 Office Visit Cardiology Vitaliy Nobles MD [facility] CARDIOLOGY [place], [place] [address] (Wo rk) documented as of [...] Address City/State/ZIP Code Phon e Number RAD [place], [place] documented in this encounter Visit Diagnoses Diagnosis Pain Generalized pain documented in this encounter Care Teams Loan Adviser Relationship Specialty Start Date End Date Lovely Vicente MD PCP - General 04/16/[address] [place] [address] documented as of this encounter
--- OUTSIDE RECORDS SUMMARY | 2022-02-13 11:15 | XMS_ITS | Encounter Summary ---
:1945 Author Organization [place] [address] Care Team Providers Name Role Phone Lovely Vicente MD Primary Care Provider Reason for Visit Auth/Cert Specialty Diagnoses / Procedures Referred By Contact Refer red To Contact Diagnoses Critical lower limb ischemia CELLULITIS RT FOOT Procedures EMERGENCY Referral ID Status Reason Start Date Expiration Date Visits Requ ested Visits Authorized [id number] 1 1 Encounter Details Date Type Department Care Team Description 08/04/2017 Office Visit Cardiology at [facility] Danette Maxwell Incisional pain; [facility] A, RECRUITMENT CONSULTANT Ischemic cardiomyopathy; [facility] ASCVD (arteriosclerotic card iovascular disease); [place], [place] Systolic heart failure, unspecified hear t failure chronicity [phone] CARDIOLOGY [phone] [place], [place] [address] Social History Tobacco Use Types [...] in this encounter Progress Notes Danette Maxwell, RECRUITMENT CONSULTANT - 08/04/2017 3:00 PM EST ID and [...] 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 [...] Liz Poole PA [facility] Cardiology Dept [place], [place] [address] (Wo rk) 03/26/2022 Office Visit Cardiology Vitaliy Nobles MD [facility] CARDIOLOGY [place], [place] [address] (Wo rk) documented as of [...] sensation documented in this encounter Care Teams Supervisor Roller Shop Relationship Specialty Start Date End Date Lovely Vicente MD PCP - General 04/16/[address] [place] [address] documented as of this encounter
--- OUTSIDE RECORDS SUMMARY | 2022-02-13 11:16 | XMS_ITS | Encounter Summary ---
:1945 Author Organization [place] [address] Care Team Providers Name Role Phone Lovely Vicente MD Primary Care Provider Reason for Visit Reason Onset Date Comments Other 07/22/2017 lovenox bridge Encounter Details Date Type Department Care Team Description 07/22/[address] [facility] Court Cadena RN Other (lovenox bridge) [place] [phone] Social History Tobacco Use Types Packs/Day [...] 4:49 PM EST VAMSI Del Castillo, at [facility], called earlier today with a question re: lovenox bridge for this patient who was recently discharged from [facility] r/t a blood clot. Discharge note faxed to [facility] (fax# [phone], Ph#: [phone]) which contains instructions r/t lovenox bridge as [...] Cardiology Liz Poole PA [facility] er Cardiology Dept [place], [place] [address] (Wo rk) 03/26/2022 Office Visit Cardiology Vitaliy Nobles MD [facility] CARDIOLOGY [place], [place] [address] (Wo rk) documented as of this encounter Visit Diagnoses Not on filedocumented in this encounter Care Teams Assistant Community Manager Relationship Specialty Start Date End Date Lovely Vicente MD PCP - General 04/16/[address] [place] [address] documented as of this encounter
--- OUTSIDE RECORDS SUMMARY | 2022-02-13 11:16 | XMS_ITS | Encounter Summary ---
:1945 [place] [address] Care Team Providers Name Role Phone Lovely Vicente MD Primary Care Provider Reason for Visit Reason Comments Hospital Transfer cold foot post CABG Auth/Cert Specialty Diagnoses / Procedures Referred By Contact Refer red To Contact Diagnoses Critical lower limb ischemia Procedures NAYE IPI Referral ID Status Reason Start Date Expiration Date Visits Requ ested Visits Authorized [id number] 1 1 Encounter Details Date Type Department Care Team Description 07/20/2017 Hospital Encounter 4 Herminia Ibarra MD [facility] [place] [address] Critical lower limb [facility] Arik Clement MD [facility] [place] [address] [place] [address] Social History Tobacco Use Types Packs/Day Years [...] home. Important Studies and Lab Data: Labs: [facility] Lab Results Component Value Date INR 1.5 [...] For any problems or questions please call [phone] ZELDA Smith, customer logistics manager Nurse Clinician For issues on weeknights after 5pm and weekends please call [phone] and ask for the Vascular Fellow pond tender. General Instructions None Future Appointments and Orders Future Appointments Provider Department Dept Phone 08/04/2017 1:00 PM Daniele Mooney [place] [facility] [place] [phone] 08/04/2017 2:15 PM Arik Clement MD [facility] [place] [phone] 09/07/2017 3:00 PM MAYRA CHACON [facility] [phone] 09/07/2017 4:00 PM Luz Prescott MD [facility] [place] [phone] Future Orders Complete By Expires Arterial Duplex Leg, Unil [VAS32 Custom] 07/27/2017 (Approximate) 01/26/2018 Process Instructions: There is no in-house vascular slabber available on weeknights (5pm-8am), weekends, or holidays. IF THIS IS A REQUEST FOR AN EMERGENT STUDY DURING THOSE HOURS, please have the senior provider responsible for the patient page the Vascular Surgery Fellow/Senior Resident pond tender to discuss options. Scheduling Instructions: Questions: Indication for study/signs & symptoms: Right femoral PSA s/p cardiac cath Question to be answered: bloodflow to PSA Laterality: Right Is there a RIGHT LOWER EXTREMITY graft?: No Lower limb right segments: Common Femoral Is there a stent?: No At which location will this be performed?: [place] Referral to Home Health - at DISCHARGE [[id number] CPT(R)] As directed Process Instructions: Scheduling Instructions: Comments: DOCUMENTATION FOR VNA SERVICES (INCLUDING THOSE PATIENTS WITH MEDICARE COVERAGE REQUIRING HOME VNA SERVICES AND/OR HOSPICE SERVICES) PATIENT'S LOCATION: Gregory Fatima [address] [place] [address] [place] [id number] (home) Cell: Telephone Information: 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 Name: self In discussion with the attending physician, it is certified that this patient is under their care and that they, or a Nurse Practitioner,Clinical Nurse specialist or Physician Hob Mill Operator who is working directly with [...] CARE AGENCY: [facility] ([facility] [place] [facility]-is in [place] PHONE: [phone] FAX: [phone] Start of care: 24- 48 hours FOR [...] to be obtained from this patient'sPCP: Lovely iVcente MD [address] [facility] [place] / [place] [address] All VNA agencies which cover the area [...] For any problems or questions please call [phone] ZELDA Smith, customer logistics manager Nurse Clinician For issues on weeknights after 5pm and weekends please call [phone] and ask for the Vascular Fellow pond tender. documented in this encounter Medications at Time [...] RN - 07/20/2017 2:53 PM EST The patient/account services representative has been provided a list of Home Health Agencies/DME vendors which serve their preferred geographic area. A letter describing our affiliations was reviewed with them and theywere educated about their right to choose where referrals are placed. Patient requests referral to [facility] [employer]. PHONE: [phone] FAX: [phone]. Expected date of discharge: 07/20/2017 . Referral routed to the Weatherization Technician for matching with agency/vendor and to provide any required information. Naty Pulliam RN - 07/20/2017 11:37 AM EST The patient/account services representative has been provided a list of Home Health Agencies/DME vendors which serve their preferred geographic area. A letter describing our affiliations was reviewed with them and theywere educated about their right to choose where referrals are placed. Patient requests referral to [facility] ([facility] [place] [facility]- is in [facility] PHONE: [phone] FAX: [phone]. Expected date of discharge: 07/20/2017 . Referral routed to the Weatherization Technician for matching with agency/vendor and to provide any required information. Katina Pulliam RNwindrower operator Janneth Lee MD - 07/20/2017 7:29 AM [...] SETUP performed by Manny Mcknight MD at [facility] MAIN OR ??? PRO CABG, ARTERIAL, SINGLE N/A 07/07/2017 @CABG, USING ARTERIAL GRAFT;SINGLE ARTERIAL GRAFT (WRVU 33.75) performed by Yuan Retana MD at [facility] MAIN OR ??? PRO CABG, ARTERY-VEIN, TWO N/A 07/07/2017 @CABG, TWO VENOUS GRAFTS & ARTERIAL GRAFT (WRVU 7.93) performed by Yuan Retana MD at [facility] MAIN OR ??? PRO COLONOSCOPY, REMV LESN, SNARE 01/16/2014 COLONOSCOPY, POLYPECTOMY, REMOVAL LESION BY SNARE performed by Nohemi Jaimes MD at [facility] ENDOSCOPY ??? PRO ENDOSCOPY W/VIDEO-ASST VEIN HARVEST, CABG Right 07/07/2017 ENDOSCOPIC HARVEST VEIN(S) FOR CABG (WRVU 0.31) performed by Yuan Retana MD at [facility] MAIN OR ??? PRO THYROIDECTOMY 03/28/2013 THYROIDECTOMY, TOTAL OR COMPLETE performed by Manny Mcknight MD at [facility] MAIN OR Functional Status/Social Hx: Social [...] -ISS -pain control Discussed with Vascular Fellow pond tender. Chris Valadez MD PGY2 Pager [phone] documented in this encounter ED Notes Annita Reaves MD - 07/20/2017 3:15 PM EST Emergency Department Gregory Fatima is a 72 y.o. 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 History of Present Illness [...] Hospitalizations Within the Past 30 Days: [facility] 07/05/17 Anticipated Length Of Stay (If known): [...] Health/Prescription Coverage: Primary Insurance: MEDICARE Secondary Insurance: [employer] [facility] Prescription Coverage: See above Preferred Pharmacy: [facility] Other: N/A Primary Care Provider: Lovely Vicente MD [phone] Patient/Caregiver Goals of Treatment: Patient plans to return home when medically ready Potential Needs for Transition of Care: Rehab/SNF: N/A Home Health: [facility] ([facility] [place] [facility]-is in [place]) PHONE: [phone] FAX: [phone] DME: N/A Dialysis: N/A Community Resources: N/A Transportation: Patient family will transport Other: N/A Anticipated Barriers to Discharge/Special Considerations: None Plan: Patient plans to return home with home health services when medically ready A member of the Care Management team will continue to monitor progress, follow for continuity of care and assist with transition of care planning. Naty Pulliam RN Pager: [phone] ED Triage - Rayna Weir RN - 07/20/2017 12:28 AM EST Pt transferred from [facility] for blue right foot and painful toes. [...] 02/19/2022 Office Visit Cardiology Liz Poole PA [facility] Cardiology Dept [place], [place] [address] ([place]o ) 03/26/2022 Office Visit Cardiology Vitaliy Nobles MD [facility] CARDIOLOGY [place], [place] [address] ([place] ) documented as of this encounter Procedures Procedure Name Priority Date/Time Associated Comments Diagnosis TARE MAN SCAN 09/02/2017 12:00 Res ults for this [...] TO LAB EST procedure are i n ([facility]) the results section. APTT STAT 07/20/2017 2:25 AM Results f or this EST procedure are i n the results section. PROTHROMBIN TIME STAT 07/20/2017 2:25 AM Resul ts for this EST procedure are i n the results section. BASIC METABOLIC PANEL STAT 07/20/2017 2:25 AM Results for this (NON-FASTING) EST procedure are in the results section. documented in this encounter Results SCAN DOC: TARE MAN (09/02/2017 12:00 AM EST) Narrative 09/02/2017 12:00 AM EST This result has an attachment that is no t available. Ordered by an unspecified provider. Scanning Provider MEDIA MGR SCAN EXT ORDR/RSLT POCT Glucose (07/20/2017 12:04 PM EST) P athologist Signature POC Glucose 189 65 - 199 [facility] mg/dL [facility] Comment: Supplemental ranges: <140 mg/dL before meals <180 mg/dL all other times of the day Specimen Anatomical Collection Method Collection Time Receive d Time (Source) Location / / Volume Laterality Blood specimen 07/20/2017 12:04 7 (specimen) PM EST 12:04 PM EST Arik Clement MD POINT OF CARE TEST ORDERABLE S Performing Organization Address City/State/ZIP Code Phon e Number [place] [id number] (ABNORMAL) Differential, Automated (07/20/2017 10:34 AM EST) [facility] Method Time Signature Neutrophils % 84.3 % [facility]ORY Neutr Abs (ANC) 14.27 (H) 1.70 - [facility] [address] [facility] x10(3)/[facility] LABORATORY Lymphocytes % 5.6 % [facility] Lymphocytes Abs 1.0 0.9 - 3.2 [facility] x10(3)/[facility] LABORATORY Monocytes % 6.1 % [facility] Monocyte Abs 1.0 (H) 0.3 - 0.9 [facility] x10(3)/[facility] LABORATORY Eosinophils % 2.4 % [facility] Eosinophils Abs 0.4 0.0 - 0.4 [facility] x10(3)/[facility] LABORATORY Basophils % 0.5 % [facility] Basophils Abs 0.1 0.0 - 0.1 [facility] x10(3)/[facility] LABORATORY Immature Gran % 1.10 % [facility] Comment: Immature granulocytes(IG's)percentage an d absolute count will include metamyelocytes, myelocytes, and promyelo cytes. Blood smears from CBCs yielding IG's will be scanned manually for concor dance. If this scan disagrees with the automated IG or if promyelocytes are not ed, a manual differential will be performed. Melisa Gran Abs 0.19 (H) 0.00 - 0.04 x10(3)/[facility] LABORATORY Specimen Anatomical Collection Method Collection Time Receive d Time (Source) Location / / Volume Laterality Blood specimen 07/20/2017 10:34 7 (specimen) AM EST 10:39 AM EST Resulting Agency Comment Spec In Lab Arik Clement MD HEMATOLOGY ORDERABLES Performing Organization Address City/[facility]/ZIP Code Phon e Number [place] [id number] (ABNORMAL) Hemogram (07/20/2017 10:34 AM EST) Analysis Performed At Patho logist Time Signature WBC 17.0 (H) 4.0 - 9.5 [facility] x10(3)/[facility] LABORATORY RBC 3.70 (L) 4.58 - [facility] [address] [facility] x10(6)/[facility] LABORATORY Hemoglobin 10.8 (L) 13.7 - [facility] 16.5 gm/dL [facility] Hematocrit 33.4 (L) 40.5 - [facility] 48.5 % [facility] MCV 90.3 82.9 - [facility] 93.1 [facility] LABORATORY MCH 29.2 27.5 - [facility] 32.1 pg [facility] MCHC 32.3 32.0 - [facility] 35.7 gm/dL [facility] Platelets 211 145 - 357 [facility] x10(3)/[facility] LABORATORY RDWSD 49.1 (H) 36.0 - [facility] 45.0 [facility] LABORATORY RDWCV 14.7 (H) 11.4 - [facility] 13.8 % [facility] MPV 9.2 7.6 - 12.9 [facility] LABORATORY nRBC % Auto 0.0 % [facility] nRBC Abs Auto 0.000 0.000 - [facility] [address] [facility] x10(3)/[facility] LABORATORY Specimen Anatomical Collection Method Collection Time Receive d Time (Source) Location / / Volume Laterality Blood specimen 07/20/2017 10:34 7 (specimen) AM EST 10:39 AM EST Resulting Agency Comment Spec In Lab Arik Clement MD HEMATOLOGY ORDERABLES Performing Organization Address City/State/[place] [address] (ABNORMAL) APTT (07/20/2017 10:34 AM EST) P athologist Signature PTT 79 (H) 25 - 35 sec [facility] Comment: The recommended therapeutic range for fu ll dose, unfractionated heparin at [facility] is 80 ? 114 seconds. The use [...] Clement MD HEMATOLOGY ORDERABLES Performing Organization Address City/[facility]/ZIP Code Phon e Number [address] POCT Glucose (07/20/2017 7:41 AM EST) P athologist Signature POC Glucose 174 65 - 199 [facility] mg/dL [facility] Comment: Supplemental ranges: <140 mg/dL before meals <180 mg/dL all other times of the day Specimen Anatomical Collection Method Collection Time Receive d Time (Source) Location / / Volume Laterality Blood specimen 07/20/2017 7:41 AM 017 7:41 (specimen) EST AM EST Arik Clement MD POINT OF CARE TEST ORDERABLE S Performing Organization Address City/[facility]/ZIP Code Phon e Number [address] JULIAN, legs, multiple levels (07/20/2017 7:33 AM EST) Component Value Ref Test Analysis Performed At Patholo gist Range Method Time Signature VB Text Department: Vascular Surgery Lab VASCUBASE Report Patient: [id number] (GREGORY FATIMA) CPT: 98818 ICD10: I75.021;I99.8 Referring Physician: ARIK CLEMENT ?? Indications: s/p cardiac cath, right groin access, right rebecca e toes, ? peripheral perfusion Diabetes mellitus: Yes ICD10 Diagnosis Code: I75.021, I99.8 Findings: Right ?Pressure (mm Hg) ?? JULINA ??Waveform ? TBI ?? Brachial Artery ?140 [...] Component Value Ref Test Analysis Performed At [facility] Range Method Time Signature VB Text Department: Vascular Surgery Lab VASCUBASE Report Patient: [id number] (GREGORY FATIMA) CPT: 98254 ICD10: I97.610;I99.8 Referring Physician: ARIK CLEMENT ?? [...] Signature POC Glucose 199 65 - 199 [facility] mg/dL [facility] Comment: Supplemental ranges: <140 mg/dL before meals <180 mg/dL all other times of the day Specimen Anatomical Collection Method Collection Time Receive d Time (Source) Location / / Volume Laterality Blood specimen 07/20/2017 3:41 AM 017 3:41 (specimen) EST AM EST Arik Clement MD POINT OF CARE TEST ORDERABLE S Performing Organization Address City/State/[place] [address] Lactate, whole blood, send to lab (Leb/CGP) (07/20/2017 2:25 AM EST) athologist Signature Lactate WB 2.0 0.5 - 2.2 [place] [facility] LABORATORY Specimen Anatomical Collection Method Collection Time Receive d Time (Source) Location / / Volume Laterality Blood specimen Venous Draw / 07/20/2017 2:25 AM 2016 2:37 (specimen) Unknown EST AM EST Resulting Agency Comment Spec In Lab Zulma Samuel MD CHEMISTRY ORDERABLES Performing Organization Address City/[facility]/[place] [address] (ABNORMAL) APTT (07/20/2017 2:25 AM EST) P athologist Signature PTT 36 (H) 25 - 35 sec [facility] Comment: The recommended therapeutic range for fu ll dose, unfractionated heparin at [facility] is 80 ? 114 seconds. The use [...] Reaves MD HEMATOLOGY ORDERABLES Performing Organization Address City/[facility]/[place] [address] (ABNORMAL) Prothrombin Time (07/20/2017 2:25 AM EST) P athologist Signature PT 17.7 (H) 11.8 - 14.0 [facility] LABORATORY INR 1.5 (H) 0.9 - 1.1 [facility] Comment: An [...] Organization Address City/State/[place] [address] (ABNORMAL) Basic Metabolic Panel (non-fasting) (07/20/2017 2:25 AM EST) athologist Signature Glucose Lvl 187 65 - 199 [facility] mg/dL [facility] Comment: Diabetes: >=200 mg/dL plus symp toms BUN 35 (H) 10 - 20 mg/dL [facility] Creatinine 1.51 (H) 0.80 - 1.50 mg/dL [facility] Sodium 134 (L) 135 - 145 mmol/L [facility] Potassium Not Perf 3.5 - 5.0 mmol/L [facility] Comment: Specimen hemolyzed. Called by: [facility], Read back by: Chitra Orantes, Date/Time:07/20/17 03:05. Please note: ??Patients with WBC >100,00 0 may have falsely elevated Potassium levels. ??For accurate Potassium quantif ication in these patients send serum separator tube (gold top) for subsequent determinations. ??Contact the Clinical Chemistry Laboratory if there are any qu estions. Chloride 92 (L) 98 - 107 mmol/L [facility] CO2 29 22 - 31 mmol/L [facility] Anion Gap 13 5 - 15 mmol/L [facility] Calcium 8.6 8.5 - 10.5 mg/dL [facility] Estimated GFR 46 (L) >=60 [facility] Comment: The reported eGFR should be multiplied b y 1.2 for patients. The MDRD is not an appropriate measure o f renal function for patients with body mass extremes or in patients with acute kidney failure. http://mobiDEOS/DHnkdep http://mobiDEOS/DHMCnkf Specimen Anatomical Collection Method Collection Time Receive d Time (Source) Location / / Volume Laterality Blood specimen 07/20/2017 2:25 AM 017 2:33 (specimen) EST AM EST Resulting Agency Comment Spec In Lab Annita Reaves MD CHEMISTRY ORDERABLES Performing Organization Address City/State/ZIP Code [place] [address] documented in this encounter [...] 80 mg (COMPLETED) 1214 (Given - Provider: Lauar Vega RN - Comment: not up from [...] Group 2) 0-8,000 Units, Intravenous, BOLUS PER [facility] PROTOCOL, Starting Wed07/20/17 at 0424, Until Wed07/20/17 [...]
Routine documented in this encounter Care Teams Decontaminator Relationship Specialty Start Date End Date Lovely Vicente MD PCP - General 04/16/[address] [place] [address] documented as of this encounter
--- OUTSIDE RECORDS SUMMARY | 2022-02-13 11:16 | XMS_ITS | Encounter Summary ---
:1945 [place] [address] Care Team Providers Name Role Phone Lovely Vicente MD Primary Care Provider Encounter Details Date Type Department Care Team Description 07/16/2017 Telephone Endocrinology at [facility] C Manuela Holliday, [facility] [place] [address] ENDOCRINOLOGY DEPT [phone] [place], [place] [address] (Wo rk) Social History Tobacco [...] 02/19/2022 Office Visit Cardiology Liz Poole PA [facility] Cardiology [place], [place] [address] (Wo rk) 03/26/2022 Office Visit Cardiology Vitaliy Nobles MD [facility] CARDIOLOGY [place], [place] [address] (Wo rk) documented as of this encounter Visit Diagnoses Not on filedocumented in this encounter Care Teams Child Nutrition Assistant Relationship Specialty Start Date End Date Lovely Vicente MD PCP - General 04/16/[address] [place] [address] documented as of this encounter
--- OUTSIDE RECORDS SUMMARY | 2022-02-13 11:16 | XMS_ITS | Encounter Summary ---
:1945 [place] [address] Care Team Providers Name Role Phone Lovely Vicente MD Primary Care Provider Reason for Visit Reason Onset Date Comments Questions 07/16/2017 fluid retention Encounter Details Date Type Department Care Team Description 07/16/2017 Telephone Cardiology at [facility] Martha Comer, Questions ([facility] RN retention ) [place] [address] Social History Tobacco Use Types Packs/Day [...] the direct number to the HF team ([phone]). She is aware of his appt with WOOD TREATING INSPECTOR Hans on 07/21/17 and the need for labs prior to that visit. verbalized good understanding of the current POC. documented in this encounter Plan of Treatment Upcoming Encounters Date Type Specialty Care Team Description 02/19/2022 Laboratory Appointment Lab 02/19/2022 Office Visit Cardiology Liz Poole PA [facility] [address] Cardiology Dept [place], [place] [address] (Wo rk) 03/26/2022 Office Visit Cardiology Vitaliy Nobles MD [facility] CARDIOLOGY [place], [place] [address] (Wo rk) documented as of this encounter Visit Diagnoses Not on filedocumented in this encounter Care Teams Sr. Manager Corporate Communications Relationship Specialty Start Date End Date Lovely Vicente MD PCP - General 04/16/[address] [place] [address] [address] [place] [address] documented as of this encounter
--- OUTSIDE RECORDS SUMMARY | 2022-02-13 11:17 | XMS_ITS | Encounter Summary ---
:1945 Author Organization [facility] [place] [address] Care Team Providers Name Role Phone Lovely Vicente MD Primary Care Provider Encounter Details Date Type Department Care Team Description 07/08/2017 Orders Only Cardiology [facility] [place] [address] Social History Tobacco Use Types Packs/Day [...] PA [facility] er Cardiology Dept [place], [place] [address] (Wo rk) 03/26/2022 Office Visit Cardiology Vitaliy Nobles MD [facility] [place], [place] [address] (Wo rk) documented as of [...] Mccollum ? (Age): 1945(72y) Med Rec#: ? [id number] ?Sex: ?M ? Site Loc: ? Ht / Wt: ??(cm)/ (kg) ? Pt. Loc: ? Study Date: ?? 07/07/2017 ?Pt. Type: Tape: ? Referring: Yuan Retana Reading: Yifan Perez MD ([id number]) Performing: Yifan Perez MD ([id number]) Diagnosis: SUMMARY: 1. [facility] and [...] ? Mid-Inferior ?Hypokinetic ? Mid-Inferoseptal ?Hypokinetic ? [place]-Septal ? Hypokinetic ? [place]-Anterior ? Hypokinetic ? [place]-Lateral ?Hypokinetic ? [place]-Inferior ? Hypokinetic ? [place]-Tip ?Not Seen ? This report has been electronically sign ed by: _ Yifan Perez MD ? 07/08/2017 12 :25:18 Images reviewed and interpretation ver ied [facility] Procedure Note Yifan Perez MD - 07/08/2017Formatt ing of this note might be different from the original. Procedure: Transesophageal Echocardiogra m Patient: NATALYA MCBRIDE(Age): [birth year]72y) Med Rec#: [id number] Sex: M Site Loc: Ht / Wt: (cm)/ (kg) Pt. Loc: Study Date: 07/07/2017 Pt. Type: Tape: Referring: Yuan Retana Reading: Yifan Perez MD ([id number]) Performing: Yifan Perez MD ([id number]) Diagnosis: SUMMARY: 1. Intraoperative AVELINO performed at [...] Hypokinetic Mid-Posterolateral Hypokinetic Mid-Inferior Hypokinetic Mid-Inferoseptal Hypokinetic [place]-Septal Hypokinetic [place]-Anterior Hypokinetic [place]-Lateral Hypokinetic [place]-Inferior Hypokinetic [place]-Tip Not Seen This report has been electronically sign ed by: _ Yifan Perez MD 07/08/2017 12:25:18 Images reviewed and interpretation elvie hwang [facility] Unknown ECHO ORDERABLES Performing Organization Address City/State/ZIP Code Phon e Number [facility] documented in this encounter Visit Diagnoses Not on filedocumented in this encounter Care Teams Safety Engineer Pressure Vessels Relationship Specialty Start Date End Date Lovely Vicente MD PCP - General 04/16/[address] [place] [address] documented as of this encounter
--- OUTSIDE RECORDS SUMMARY | 2022-02-13 11:17 | XMS_ITS | Encounter Summary ---
:1945 Author Organization [facility] [place] [address] Care Team Providers Name Role Phone Lovely Vicente MD Primary Care Provider Reason for Referral Consultation (Routine) - Closed Specialty Diagnoses / Referred By Contact Referred To Contact Procedures Cardiac Rehabilitation Diagnoses S/P CABG x 3 Yuan Webber, Cardiac Rehab, [address] [place] CARDIOTHORACIC [address] [place] [address] Referral ID Status Reason Start Date Expiration Date Visits V isits Requested Authorized [id number] Closed Consult, 07/14/2017 01/10/2018 36 36 Test & Treat Reason for Visit Auth/Cert Specialty Diagnoses / Procedures Referred By Contact Refer red To Contact Diagnoses STEMI (ST elevation myocardial infarction) NSTEMI STEMI Procedures CARDIAC CATHETERIZATION NAYE IPI Referral ID Status Reason Start Date Expiration Date Visits Requ ested Visits Authorized [id number] 1 1 Encounter Details Date Type Department Care Team Description 07/05/2017 - Hospital Encounter Cardiac Special Daphne Shahid MD [facility] [place] [address] Non-ST elevation myocardial infarction ( NSTEMI); 07/14/2017 Care Unit Yuan Preciado MD [facility] [place] [address] S/P CABG x 3 [place] [id number] Social History Tobacco Use Types Packs/Day Years [...] Patient Age: 72 y.o. Birthdate: 1945 Language: Scottish Race: White Ethnicity: Not nor Admit Date: 07/05/2017 Discharge Date: 07/14/2017 Attending Physician: Yuan Webber MD Follow-up Recommendations for Providers: Please continue routine management of cardiovascular risk factors including blood pressure, lipids, glucose, etc. Please note any changes to medications. Patient to follow-up with PCP, Lovely Vicnete MD, in 1-2 weeks. An appointment has been made for you on 07/22/2017, , @ 1:20p Patient to follow-up with Cnc Machinist/heart failure team in one week. An appointment will be made for you. You may call [phone] Patient to follow-up with Cardiac Surgery, Dr. Yuan Webber, in ~ 4 weeks with CXR, EKG. Inpatient Provider Contact Information: [facility] Section of Cardiac Surgery [facility] [address] FAX [phone] Discharge Diagnoses (Hospital Problems) Primary Diagnoses: CAD [...] SETUP performed by Manny Mcknight MD at [facility] MAIN OR ??? PRO CABG, ARTERIAL, SINGLE N/A 07/07/2017 @CABG, USING ARTERIAL GRAFT;SINGLE ARTERIAL GRAFT (WRVU 33.75) performed by Yuan Webber MD at [facility] MAIN OR ??? PRO CABG, ARTERY-VEIN, TWO N/A 07/07/2017 @CABG, TWO VENOUS GRAFTS & ARTERIAL GRAFT (WRVU 7.93) performed by Yuan Webber MD at [facility] MAIN OR ??? PRO COLONOSCOPY, REMV LESN, SNARE 01/16/2014 COLONOSCOPY, POLYPECTOMY, REMOVAL LESION BY SNARE performed by Nohemi Jaimes MD at [facility] ENDOSCOPY ??? PRO ENDOSCOPY W/VIDEO-ASST VEIN HARVEST, CABG Right 07/07/2017 ENDOSCOPIC HARVEST VEIN(S) FOR CABG (WRVU 0.31) performed by Yuan Webber MD at [facility] MAIN OR ??? PRO THYROIDECTOMY 03/28/2013 THYROIDECTOMY, TOTAL OR COMPLETE performed by Manny Mcknight MD at [facility] MAIN OR Prior To Admission Medications Prescriptions Prior to Admission Medication Sig Dispense Refill Last Dose ??? levothyroxine (SYNTHROID) 175 mcg Tablet Take 1 tablet by mouth daily. 90 tablet 3 07/05/2017 [id number] ??? ascorbic acid, vitamin C, (VITAMIN C) [...] hospital and ruled infor non-ST segment elevation [place]. This almost certainly represents the residual of [...] Hospital Course: Gregory Hoang was admitted to [facility] on 07/05/2017 via the Cardiology Service. During his hospital course, he was taken emergently to the lab engineer for an ongoing STEMI. An IABP was [...] not take or discontinue any prescription or ccup-rhz-ypsohxu medications without asking your doctor or pharmacist [...] Yuan Webber and/or the Cardiac Surgery Physician Emergency Department Rn Team may be reached at . Weight: [...] Dr. Yuan Webber. You may use a [place] Track or treadmill but avoid any pulling [...] friends, go to a movie, go to mandaen, etc. Heavy activities: No hunting, skiing, jogging, snow shoveling, snowmobiling, lawn mowing, swimming, golf or tennis until after your return appointment with the surgeon. Do not ride motorcycles, [employer]'s tractors or horses. Avoid the use of [...] should resume a low fat, low cholesterol, [place] Heart Association Diet/Diabetic diet. Driving: No driving [...] , @ 1:20p Patient to follow-up with Cnc Machinist/heart failure team in one week. Appointment will be made for you. You may call [phone] Patient to follow-up with Cardiac Surgery, Dr. Yuan Webber, in ~ 4 weeks with CXR, EKG. Cardiac Rehabilitation: Gregory Hoang was seen today regarding participation in the outpatient Phase 2 Cardiac Rehabilitation at [facility]. The patient agrees to a referral to this program. The referral will be sent at discharge and the patient should be contacted by the Program within 1- 2 weeks from discharge. ?? Future Appointments and Orders Future Appointments Provider Department Dept Phone 09/07/2017 3:00 PM LAB, THREE L Lab 3L [facility] [phone] 09/07/2017 4:00 PM Luz Prescott MD Endocrinology at [facility] [phone] Future Orders Complete By Expires EKG 12 Lead [EKG1 Custom] 08/14/2017 02/13/2018 Process Instructions: Scheduling Instructions: Questions: Which location will this be performed?: [facility] Is a rhythm strip needed?: No If EKG Reason is Pre-op Evaluation, indicate diagnosis for surgery.: XR Chest PA & Lateral (Generic) [[id number] Custom] 08/14/2017 02/13/2018 Process Instructions: Scheduling Instructions: Questions: Where will study be performed?: [facility] Portable exam?: Reason for exam and clinical history: CABG x 3 Other pertinent information: Stat read required?: Date of injury if applicable: Requested Time: Referral to Cardiac Rehab [ODP078 Custom] As directed Process Instructions: If no progress note charted, please enter Clinical details in comments. Scheduling Instructions: Questions: My question or request is: s/p CABG. Cardiac rehab at [facility] Referral to Home Health - at DISCHARGE [GSD0168 CPT(R)] As directed Process Instructions: Scheduling Instructions: Comments: DOCUMENTATION FOR VNA SERVICES (INCLUDING THOSE PATIENTS WITH MEDICARE COVERAGE REQUIRING HOME VNA SERVICES AND/OR HOSPICE SERVICES) PATIENT'S LOCATION: Gregory Hoang [address] [place] [address] [place] [id number] (home) Telephone Information: Home Extension Agent's Name: self In discussion with the attending physician, it is certified that this patient is under their care and that they, or a Nurse Practitioner, or Physician Emergency Department Rn who is working directly with them, had [...] HEALTH AGENCY: [facility] ([facility] [place] [facility]-is in [place], [place]) PHONE: [phone] FAX: [phone] RN orders: Cardiopulmonary assessment, incisional assessment, assess vital signs, assessment of rehab progress, medication management and effectiveness, home safety evaluation. Please draw INR if indicated and send result to:Dr Vicente [phone] PT ORDERS: Continue rehab for endurance, gait stability and strength with mobility and transfers. Home safety evaluation. Home exercise program if appropriate. Start of Care Date:24-48 hours after discharge SPECIAL INSTRUCTIONS: For any follow up questions, needs, or issues please call the Cardiac Surgery Office at [phone] FOR MEDICARE ONLY: (please delete this section [...] OR AFTER 07/17/2017 Signed: Martha Teague APRN [facility] Section of Cardiac Surgery [facility] [address] FAX [phone] Date: 07/14/2017 CC: MD Ivania Cr Betsy, PA [address] [place] [phone] documented in this encounter Discharge Instructions Discharge [...] not take or discontinue any prescription or oqdq-bht-ijknqod medications without asking your doctor or pharmacist [...] juice or regular (not diet) soda 6 [employer] small box of raisins 4 glucose tablets [...] Yuan Webber and/or the Cardiac Surgery Physician Emergency Department Rn Team may be reached at . ?? [...] Dr. Yuan Webber. You may use a [place] Track or treadmill but avoid any pulling [...] friends, go to a movie, go to mandaen, etc. ?? Heavy activities: No hunting, skiing, jogging, snow shoveling, snowmobiling, lawn mowing, swimming, golf or tennis until after your return appointment with the surgeon. Do not ride motorcycles, [employer] tractors or horses. Avoid the use of [...] should resume a low fat, low cholesterol, [place] Heart Association Diet/Diabetic diet. ?? Driving: No [...] @ 1:20p ?? Patient to follow-up with Cnc Machinist/heart failure team in one week. An appointment has been made for you, you can call [phone] ?? Patient to follow-up with Cardiac Surgery, Dr. Yuan Webber, in ~ 4 weeks with CXR, EKG. ? Cardiac Rehabilitation: Gregory Hoang??was seen today regarding participation in the outpatient Phase 2 Cardiac Rehabilitation at [facility]. ?? The patient agrees to a referral to this program.? The referral will be sent at discharge and the patient should be contacted by the Program within 1- 2 weeks from discharge. ? Future Appointments and Orders Future Appointments Provider Department Dept Phone ?? 09/07/2017 3:00 PM LAB, THREE L Lab 3L [facility] [phone] ?? 09/07/2017 4:00 PM Luz Prescott MD Endocrinology at [facility] [phone] Future Orders Complete By Expires ?? EKG 12 Lead [EKG1 Custom] 08/14/2017 02/13/2018 ?? Process Instructions: ? Scheduling Instructions: ? Questions: ? Which location will this be performed?: [facility] ?? Is a rhythm strip needed?: No ?? If EKG Reason is Pre-op Evaluation, indicate diagnosis for surgery.: ?? XR Chest PA & Lateral (Generic) [[id number] Custom] 08/14/2017 02/13/2018 ?? Process Instructions: ? Scheduling Instructions: ? Questions: ? Where will study be performed?: [facility] ?? Portable exam?: ?? Reason for exam and clinical history: CABG x 3 ?? Other pertinent information: ?? Stat read required?: ?? Date of injury if applicable: ?? Requested Time: ?? Referral to Cardiac Rehab [[id number] Custom] As directed ? Process Instructions: ?? If no progress note charted, please enter Clinical details in comments. ?? Scheduling Instructions: ? Questions: ? My question or request is: s/p CABG. Cardiac rehab at [facility] ? Arrangements for VNA/home care: As above. ? VN RN OR PCP TO PLEASE REMOVE CHEST TUBE SUTURES ON OR AFTER 07/17/2017 documented in this encounter Medications at Time of Discharge Medication Sig Dispensed Refills Start Date End Date ACCU-CHEK ELIF PLUS 2-3 times daily 100 [...] RN - 07/14/2017 2:34 PM EST The patient/technical account representative has been provided a list of Home Health Agencies/DME vendors which serve their preferred geographic area. A letter describing our affiliations was reviewed with them and theywere educated about their right to choose where referrals are placed. Patient requests referral to [facility] PHONE: [phone] FAX: [phone] Expected date of discharge: 07/14 Referral routed to the [employer] [facility] for matching with agency/vendor and to provide [...] [facility] Endocr[facility] Diabetes Management Pager [phone] minutes of this 35 minute visit was spent with the patient in counseling on diabetes and treatment plan, reviewing all glucose and insulin data as well as relevant laboratory results with the patient, and coordination of care on the inpatient unit including nursing and primary team. Zulma Andres, RN - 07/14/2017 10:30 AM EST The patient/technical account representative has been provided a list of Home Health Agencies/DME vendors which serve their preferred geographic area. A letter describing our affiliations was reviewed with them and theywere educated about their right to choose where referrals are placed. Patient requests referral to : [facility] ([facility] [place] [facility]-is in [place]) PHONE: [phone] FAX: [phone]. Expected date of discharge: 07/14/17 Referral routed to the [employer] [facility] for matching with agency/vendor and to provide [...] hours. If BG remains greater than 240, [id number] units (no more than three times) &??call [...] #6 s/p CABG X3. FSBG 80 at [place], reports no symptoms but did drink some [...] [facility] [place] Endocr[facility] Diabetes Management Pager [phone] minutes of this 25 minute visit [...] of infiltration/extravasation Discussed plan of care with COMPUTING SERVICES DIRECTOR and RN. Elevate exrtemity and apply intermittent Warm compresses. Name of MD contacted Dr. Shaw Brown 07/13/2017 @ 0673 Name of RN contacted Ale Rangel RN Name of Pharmacist if consulted NA Name of Plastics MD ( if consulted) NA (Mandatory photo for infiltrations/ extravasations scoring a stage 2 or greater, but recommended forstage 1)( include measuring tape and identifier in the photo) EPIC RADIANT ANALYST CARING FOR THIS PATIENT WILL CONTINUE TO [...] measuring tape and identifier in the photo) EPIC RADIANT ANALYST CARING FOR THIS PATIENT WILL CONTINUE TO [...] regard to both infiltrates addressed by this sba underwriter.All of Mr. Hoang's responses were entirely appropriate. Images of infiltrates attached here. Martha Sharp APRN - 07/13/2017 8:01 AM EST Cardiac Surgery Progress Note: ID: [id number] 72 year old male POD#6 s/p CABGx3 [...] discharge. ?? I have met with the patient/technical account representative to discuss discharge planning needs. I have provided the [facility], Office of Care Management letter from the Electric Deicer Inspector pertaining to rehab referrals. I have also provided a letter describing our affiliations within the [facility] and educated them about their right to choose where referrals are placed. ?? I reviewed the different levels of rehab including SNF, swing, acute and LTAC with the patient/technical account representative. ?? The patient/technical account representative has been provided a list of facilities within their preferred geographic area. ?? I have requested that the patient/technical account representative provide at least three choices for referral. ?? The patient/technical account representative have requested referrals to: ?? 1. . ?? 2. [facility] ?? 3. More to be entered ?? Expected date of discharge: 07/14 Note routed to [facility] who will communicate referrals to facilities and [...] hours. If BG remains greater than 240, [id number] units (no more than three times) & call for new basal insulin orders. ??If less than 240 after two hours, give no insulin and resume prior schedule. Will continue to follow Katerin Patel. STACIE Azul [facility] Endocrinology Diabetes Management Pager [phone] minutes of this 35 minute visit was spent with the patient in counseling on diabetes and treatment plan, reviewing all glucose and insulin data as well as relevant laboratory results with the patient, and coordination of care on the inpatient unit including nursing and primary team. Makayla Stevenson APRN - 07/12/2017 9:52 AM EST Cardiac Surgery Progress Note: ID: [id number] 72 year old male POD#5 s/p CABGx3 [...] 07/11/2017 7:18 PM EST Patient arrived from [facility]. VSS. MSI dressing pulled off [...] AM EST Cardiac Surgery Progress Note: ID: [id number] 72 year old male POD#4 s/p CABGx3 [...] hours. If BG remains greater than 240, [id number] units (no more than three times) & [...] AM EST Cardiac Surgery Progress Note: ID: [id number] 72 year old male POD#3 s/p CABGx3 [...] Gas) No results found for: PHART, PO2ART, HNQ8FRP Assessment/Plan: 72 year old male POD#3 s/p [...] Encounter Note Patient Name: Gregory Hoang : [id number] MR#: [id number] Admit Date: 07/05/2017 4:20 PM Hospital Day 4 days Narrative: Patient was sitting in chair, hugging heart pillow, opened his eyes, nodding to come into room Assessment: Patient was sleepy. Intervention and Outcome: Introduced virology teacher services and patient reached his hand out in appreciation. Follow-up: Yarn Rewinder remains available for support. Time in Direct [...] 10:45 AM EST Report given to staff mine warfare officer to cover care Maddison Cee PA - 07/09/2017 9:00 AM EST Cardiac Surgery Progress Note: ID: [id number] 72 year old male POD#2 s/p CABGx3 [...] Attending Surgeon on rounds. Signed: STEPHANIE Iqbal [facility] Section of Cardiac Surgery Date: 07/09/2017 Magnolia Santiago [facility] - 07/09/2017 1:[address] ICU [...] when IABP d/c'ed. Gretchen Carolina, PT Pager [phone] Maddison Cee PA - 07/08/2017 11:27 AM EST Cardiac Surgery Progress Note: ID: [id number] 72 year old male POD#1 s/p CABGx3 [...] Attending Surgeon on rounds. Signed: STEPHANIE Iqbal [facility] Section of Cardiac Surgery Date: 07/08/2017 Nick [...] unit. NICK SEGAL MD 07/08/2017 Jay Munoz [facility] - 07/08/2017 4:[address] Surgery [...] in place in R femoral. No hematoma. MECHANICAL INTERN- Intact Psych- Anxious Skin- Dry, no peripheral [...] Dinorah Ramírez MD, PGY-1 Cardiology S1 (pgr. [id number]) Daphne Shahid MD - 07/06/2017 10:18 PM [...] intact. IABP in place in R femoral. MECHANICAL INTERN- Intact Psych- Anxious Skin- Dry, no peripheral [...] STAFF PROGRESS NOTE Critical Care Medicine Author: NIKC SEGAL MD Patient seen and examined on [...] Ramírez MD, PGY-1 Cardiology S1 (pgr. [id number]) . CARDIOLOGY ATTENDING NOTE Patient: Gregory Hoang [...] note for details. DAPHNE SHAHID MD Pager [phone] Jet Mckenna MD - 07/05/2017 6:48 PM EST Preliminary Cardiac Catheterization Procedure Note: Procedure(s) performed: Left heart cath, IABP insertion Access: Right CLERK OF COURT-->8fr IABP A time-out was conducted prior to [...] effect. Heparin gtt maintained. Pt transferred to lab engineer. documented in this encounter H&P Notes Daphne Shahid MD - 07/05/2017 6:08 PM EST CARDIOLOGY HISTORY & PHYSICAL EXAM Date of Admission: 07/05/2017 ( Hospital Day 0 days ) Responsible Attending: Daphne Shahid MD PCP: Lovely Vicente MD PCP#: [phone] Patient Active Problem List Diagnosis Code ??? [...] No significant valvular disease. Taken to the lab engineer urgently for ongoing STEMI. [facility] Labs: INR 1.0 WBC 5.88 Hgb [...] monitor I/O - s/p lasix in the lab engineer, redose to aim net neg 1L by [...] - ISS - hold metformin - f/u [facility] #Home Meds - continue levothyroxine 175mcg - CPAP at night # Routine - DVT PPx: heparin drip - Diet: NPO - Code Status: FULL - Dispo: [facility] Cedric Bey MD Internal Medicine, PGY-2 Cardiology S1, Team Pager # [phone] CARDIOLOGY ATTENDING NOTE Patient: Gregory Hoang Date [...] amenable for PCI. DAPHNE SHAHID MD Pager [phone] documented in this encounter Miscellaneous Notes Consult Note - Daphne Shahid MD - 07/14/2017 11:46 AM EST Heart Failure Service Inpatient Consult Note Gregory oHang Date of : 1945 Age: 72 y.o. Today's date: 07/14/17 PCP: Lovely Vicente MD LIQUOR GRINDING MILL OPERATOR: None Place of Service: [facility] Reason for Consult: Dr. Webber has requested [...] SETUP performed by Manny Mcknight MD at [facility] MAIN OR ??? PRO CABG, ARTERIAL, SINGLE N/A 07/07/2017 @CABG, USING ARTERIAL GRAFT;SINGLE ARTERIAL GRAFT (WRVU 33.75) performed by Yuan Webber MD at [facility] MAIN OR ??? PRO CABG, ARTERY-VEIN, TWO N/A 07/07/2017 @CABG, TWO VENOUS GRAFTS & ARTERIAL GRAFT (WRVU 7.93) performed by Yuan Webber MD at [facility] MAIN OR ??? PRO COLONOSCOPY, REMV LESN, SNARE 01/16/2014 COLONOSCOPY, POLYPECTOMY, REMOVAL LESION BY SNARE performed by Nohemi Jaimes MD at [facility] ENDOSCOPY ??? PRO ENDOSCOPY W/VIDEO-ASST VEIN HARVEST, CABG Right 07/07/2017 ENDOSCOPIC HARVEST VEIN(S) FOR CABG (WRVU 0.31) performed by Yuan Webber MD at [facility] MAIN OR ??? PRO THYROIDECTOMY 03/28/2013 THYROIDECTOMY, TOTAL OR COMPLETE performed by Manny Mcknight MD at [facility] MAIN OR Outpt Meds: Current [...] following studies: EKG 07/14/17: NSR 75 bpm, REAL ESTATE AGENT anterior infarct, LAD CXR 07/11/17: FINDINGS: Sternotomy wires. The patient has been extubated, left chest tube removed, and Gilby-Suzi catheter removed since the 07/07/2017 study. Atelectasis [...] was discussed with Zehra. Jaden Kelley MD Jewelry Estimator Pager [phone] CARDIOLOGY ATTENDING NOTE Patient: Gregory Hoang Date [...] heart failure clinic. DAPHNE SHAHID MD Pager [phone] Plan of Care - Alden Chavarria, FINISH MOLDER - 07/14/2017 11:35 AM EST Problem: Patient [...] Discharge Disposition: home with assist Alden Chavarria, FINISH MOLDER Pager: [phone] Inpatient Physical Therapy Problem: Acute Rehab Services [...] sit/sit to supine -- Bed Mobility Goal, [place] Level supervision required -- Bed Mobility Goal, [...] - 3 days -- Gait Training Goal, [place] Level supervision required -- Gait Training Goal, [...] days -- Transfer Training Goal, Activity Type cnc-kk-hthox/qdste-jc-xhc;lce-qm-ouhgx/kjdfz-di-cyh;toilet -- Transfer Train Goal, [place] Level supervision required -- Transfer Training Goal, [...] keeping present for 2 days per family. Restaurant Inspector noted of frustrations, house keeping sent to room. Patient offered showered twice, refused. at bedside, frustrated that shower not complete, informed that patient had refused several times. requesting to see SYSTEMS APPLICATIONS PROGRAMMING LEAD, paged sent to Martha, will come to bedside (middle of consult). not willing to wait, Martha notified that family had gone home. Encouraged to come for morning rounds a t 8am. Diabetes team at bedside - insulin adjustments made. Call cabello in reach. Continue to monitor. PLAN MOVING FORWARD: Ambulate, dressing changes BID, Please change drsg at 4am per Martha SYSTEMS APPLICATIONS PROGRAMMING LEAD request. INDIVIDUALIZED FALL PREVENTION INTERVENTIONS: Patient-specific fall [...] levels on the lower side, 60ml of [place] juice given after a FS of 80. [...] Conf 07/13/17 0502 Interdisciplinary Rounds/Family Conf Participants correctional case manager;dietitian/nutrition services;nursing;occupational therapy;patient;pharmacy;physical therapy;physician Plan of [...] Anticipated Discharge Disposition: home with assist Pager: [phone] CLARISSA SEGAL, PT 07/12/2017 Physical Therapy Rehabilitation [...] to sit/sit to supine Bed Mobility Goal, [place] Level supervision required Bed Mobility Goal, Additional Goal adheres to psternal precautions for transfer Goal: Gait Training Goal Stand Alone Therapy Goal Outcome: Ongoing (Interventions Implemented as Appropriate) 07/12/17 1225 Gait Training Goal Gait Training Goal, Date Established 07/12/17 Gait Training Goal, Time to Achieve 2 - 3 days Gait Training Goal, [place] Level supervision required Gait Training Goal, Assist [...] 3 days Transfer Training Goal, Activity Type nsm-fe-spwlb/uwqct-jk-dyq;vsh-oa-rinyp/fufaf-ou-jpn;toilet Transfer Train Goal, [place] Level supervision required Transfer Training Goal, Additional Goal adheres to sternal precautions during transfer Consult Note - Octavia Vaughn RN - 07/12/2017 10:50 AM EST [facility] CARDIAC REHABILITATION Gregory Hoang was seen today regarding participation in the outpatient Phase 2 Cardiac Rehabilitation at [facility]. The patient agrees to a referral [...] IV site, amio to other piv and SPECIAL EDUCATION BUS DRIVER at bedside to help assess, IV removed. [...] Outcome: Ongoing (Interventions Implemented as Appropriate) 07/11/17199907/11/17200907/12/17 [facility] Daily Care Interventions Self-Care Promotion -- -- [...] staff, he stood and marched in place. [place] weak, wanting to sit back down. Remained [...] Outcome: Ongoing (Interventions Implemented as Appropriate) 07/05/17 5014 Mutuality/Individual Preferences What Anxieties, Fears or Concerns [...] Health/Prescription Coverage: Primary Insurance: MEDICARE Secondary Insurance: [place] [place] Prescription Coverage: yes [facility] [place] Other: none Primary Care Provider: Lovely Vicente MD [phone] Patient/Caregiver Goals of Treatment:live and get my breath back Potential Needs for Transition of Care: Rehab/SNF: [facility]; [facility] Home Health: NA DME: TBD Dialysis: na Community Resources: available Transportation: yes Other: none Anticipated Barriers to Discharge/Special Considerations: none Plan: Likely SNF Rehab before home A member of the Care Management team will continue to monitor progress, follow for continuity of care and assist with transition of care planning. ERLIN Weiss Pager: [phone] Consult Note - Katerin Azul RN - [...] management and to provide a review of longterm diabetes care. Diabetes History: Gregory Hoang has [...] potential to d/c gtt and start CF. assisted diabetes care: Medications - Outpatient treatment regimen recommendations pending based on the hospital course. Monitoring - continue BG tid ac & hs Diet - low fat/low carb diet Exercise - weight-bearing exercise 30 min/day, as tolerated Thank you for allowing us to provide care for your patient W/E coverage, Dr. Jeane Tatum, pager [phone] Katerin Patel. STACIE Azul Endocrinology Diabetes Management Pager [phone] Plan of Care - Stephanie Godoy RN [...] Operative Note Patient Name: Gregory Hoang : [id number] MR#: [id number] Case Date: 07/07/2017 Surgeon: Surgeon(s) and Role: * Yuan Webber MD - Primary * Michael Drake PA - Physician Emergency Department Rn * Linda Flores PA - Physician Emergency Department Rn Preoperative diagnosis: 3VD Postoperative diagnosis: CAD, severe [...] Operative Note Patient Name: Gregory Hoang : [id number] MR#: [id number] Case Date: 07/07/2017 Surgeon: Surgeon(s) and Role: * Yuan Webber MD - Primary * Michael Drake PA - Physician Emergency Department Rn * Linda Flores PA - Physician Emergency Department Rn Preoperative diagnosis: 3VD Postoperative diagnosis: CAD, severe [...] major CV events such as , stroke, [place], repeat revascularization compared to PCI). In this [...] code status: Full Code Katty Jovani, MS3 [facility] Cardiology S1 (Pager [phone]) Plan of Care - Emelia Ibarra RN [...] hospital and ruled infor non-ST segment elevation [place]. This almost certainly represents the residual of [...] SETUP performed by Manny Mcknight MD at [facility] MAIN OR ??? PRO COLONOSCOPY, REMV LESN, SNARE 01/16/2014 COLONOSCOPY, POLYPECTOMY, REMOVAL LESION BY SNARE performed by Nohemi Jaimes MD at [facility] ENDOSCOPY ??? PRO THYROIDECTOMY 03/28/2013 THYROIDECTOMY, TOTAL OR COMPLETE performed by Manny Mcknight MD at [facility] MAIN OR Social History: Social [...] with other involved physicians Yuan Webber MD [phone] Med Student Progress Note - Jovani Katty [...] major CV events such as , stroke, [place], repeat revascularization compared to PCI). In this [...] or BiPAP - s/p lasix in the lab engineer, was net -1.5L - s/p plavix load, [...] FULL - Dispo: CVCC Katty Hahn, M3 [facility] Cardiology S1 (Pager [phone]) Plan of Care - Stephanie Godoy RN [...] in urinal without difficulty. Lasix given in lab engineer, 1.4 L out at this time. Pt [...] Office Visit Cardiology Liz Poole PA [facility] Cardiology Dept [place], [place] [address] (Wo rk) 03/26/2022 Office Visit Cardiology Vitaliy Nobles MD [facility] CARDIOLOGY [place], [place] [address] (Wo rk) Scheduled Orders Name [...] procedure are i n the results section. COMMERCIAL COLLECTOR SCAN 07/15/2017 12:00 Res ults for this [...] 07/07/2017 1:35 CAD & ARTERIAL GRAFT ([facility] PM EST 7.93) @CABG, USING ARTERIAL Yes [...] Routine 07/06/2017 7:40 Results f or this ([facility] this ([facility]) PM EST procedure are i n the [...] [place] at 08/19/2017 10:30 AM Martha Teague RADIO CONTROL CRANE OPERATOR IMG DX ORDERABLES SCAN DOC: COMMERCIAL COLLECTOR (07/15/2017 12:00 AM EST) Narrative 07/15/2017 12:00 [...] Signature POC Glucose 186 65 - 199 [facility] mg/dL [facility] Comment: Supplemental ranges: <140 mg/dL before meals <180 mg/dL all other times of the day Specimen Anatomical Collection Method Collection Time Receive d Time (Source) Location / / Volume Laterality Blood specimen 07/14/2017 11:56 7 (specimen) AM EST 11:56 AM EST Yuan Webber MD POINT OF CARE TEST ORDERABLE S Performing Organization Address City/State/[place] [address] POCT Glucose (07/14/2017 7:52 AM EST) athologist Signature POC Glucose 126 65 - 199 [facility] mg/dL [facility] Comment: Supplemental ranges: <140 mg/dL before meals <180 mg/dL all other times of the day Specimen Anatomical Collection Method Collection Time Receive d Time (Source) Location / / Volume Laterality Blood specimen 07/14/2017 7:52 AM 017 7:52 (specimen) EST AM EST Yuan Webber MD POINT OF CARE TEST ORDERABLE S Performing Organization Address City/State/[place] [address] (ABNORMAL) Prothrombin Time (07/14/2017 4:46 AM EST) athologist Signature PT 26.4 (H) 11.8 - 14.0 [facility] LABORATORY INR 2.4 (H) 0.9 - 1.1 [facility] Comment: An INR <2.0 [...] Wilson APRN HEMATOLOGY ORDERABLES Performing Organization Address City/[facility]/[place] [address] Potassium (07/14/2017 4:46 AM EST) athologist Signature Potassium 4.3 3.5 - 5.0 [facility] mmol/L [facility] Comment: Please note: ??Patients with [...] Wilson APRN CHEMISTRY ORDERABLES Performing Organization Address City/[facility]/[place] [address] POCT Glucose (07/14/2017 4:34 AM EST) athologist Signature POC Glucose 115 65 - 199 [facility]/dL [facility] Comment: Supplemental ranges: <140 mg/dL before meals <180 mg/dL all other times of the day Specimen Anatomical Collection Method Collection Time Receive d Time (Source) Location / / Volume Laterality Blood specimen 07/14/2017 4:34 AM 017 4:34 (specimen) EST AM EST Yuan Webber MD POINT OF CARE TEST ORDERABLE S Performing Organization Address City/[facility]/ZIP Code Phon e Number [address] POCT Glucose (07/13/2017 11:33 PM EST) athologist Signature POC Glucose 132 65 - 199 [facility] Comment: Supplemental ranges: <140 mg/dL before meals <180 mg/dL all other times of the day Specimen Anatomical Collection Method Collection Time Receive d Time (Source) Location / / Volume Laterality Blood specimen 07/13/2017 11:33 7 (specimen) PM EST 11:33 PM EST Yuan Webber MD POINT OF CARE TEST ORDERABLE S Performing Organization Address City/State/ZIP Code Phon e Number [address] POCT Glucose (07/13/2017 9:25 PM EST) athologist Signature POC Glucose 121 65 - 199 [facility] mg/dL [facility] Comment: Supplemental ranges: <140 mg/dL before meals <180 mg/dL all other times of the day Specimen Anatomical Collection Method Collection Time Receive d Time (Source) Location / / Volume Laterality Blood specimen 07/13/2017 9:25 PM 017 9:25 (specimen) EST PM EST Yuan Webber MD POINT OF CARE TEST ORDERABLE S Performing Organization Address City/State/[place] [address] POCT Glucose (07/13/2017 4:55 PM EST) athologist Signature POC Glucose 79 65 - 199 [facility] mg/dL [facility] Comment: Supplemental ranges: <140 mg/dL before meals <180 mg/dL all other times of the day Specimen Anatomical Collection Method Collection Time Receive d Time (Source) Location / / Volume Laterality Blood specimen 07/13/2017 4:55 PM 017 4:55 (specimen) EST PM EST Yuan Webber MD POINT OF CARE TEST ORDERABLE S Performing Organization Address City/State/[place] [address] POCT Glucose (07/13/2017 11:16 AM EST) athologist Signature POC Glucose 163 65 - 199 [facility] mg/dL [facility] Comment: Supplemental ranges: <140 mg/dL before meals <180 mg/dL all other times of the day Specimen Anatomical Collection Method Collection Time Receive d Time (Source) Location / / Volume Laterality Blood specimen 07/13/2017 11:16 7 (specimen) AM EST 11:16 AM EST Yuan Webber MD POINT OF CARE TEST ORDERABLE S Performing Organization Address City/[facility]/[place] [address] POCT Glucose (07/13/2017 8:07 AM EST) P athologist Signature POC Glucose 96 65 - 199 [facility] mg/dL [facility] Comment: Supplemental ranges: <140 mg/dL before meals <180 mg/dL all other times of the day Specimen Anatomical Collection Method Collection Time Receive d Time (Source) Location / / Volume Laterality Blood specimen 07/13/2017 8:07 AM 017 8:07 (specimen) EST AM EST Yuan Webber MD POINT OF CARE TEST ORDERABLE S Performing Organization Address City/[facility]/[place] [address] (ABNORMAL) Prothrombin Time (07/13/2017 4:26 AM EST) P athologist Signature PT 20.8 (H) 11.8 - 14.0 [facility] LABORATORY INR 1.8 (H) 0.9 - 1.1 [facility] Comment: An INR <2.0 [...] Wilson APRN HEMATOLOGY ORDERABLES Performing Organization Address City/[facility]/[place] [address] (ABNORMAL) Basic Metabolic Panel (non-fasting) (07/13/2017 4:26 AM EST) athologist Signature Glucose Lvl 95 65 - 199 [facility] mg/dL [facility] Comment: Diabetes: >=200 mg/dL plus symp toms BUN 25 (H) 10 - 20 mg/dL [facility] Creatinine 1.19 0.80 - 1.50 mg/dL [facility] Sodium 143 135 - 145 mmol/L [facility] Potassium 3.7 3.5 - 5.0 mmol/L [facility] Comment: Please note: ??Patients with WBC >100,00 0 may have falsely elevated Potassium levels. ??For accurate Potassium quantif ication in these patients send serum separator tube (gold top) for subsequent determinations. ??Contact the Clinical Chemistry Laboratory if there are any qu estions. Chloride 104 98 - 107 mmol/L [facility] CO2 26 22 - 31 mmol/L [facility] Anion Gap 13 5 - 15 mmol/L [facility] Calcium 7.7 (L) 8.5 - 10.5 mg/dL [facility] Estimated GFR 60 >=60 [facility] Comment: The reported eGFR should be multiplied b y 1.2 for patients. The MDRD is not an appropriate measure o f renal function for patients with body mass extremes or in patients with acute kidney failure. http://SocialVolt.Verifico/DHnkdep http://LoanTek/DHMCnkf Specimen Anatomical Collection Method Collection Time Receive d Time (Source) Location / / Volume Laterality Blood specimen 07/13/2017 4:26 AM 017 4:46 (specimen) EST AM EST Resulting Agency Comment Spec In Lab Makayla Wilson APRN CHEMISTRY ORDERABLES Performing Organization Address City/State/ZIP [place] [address] POCT Glucose (07/13/2017 3:52 AM EST) athologist Signature POC Glucose 93 65 - 199 [facility] mg/dL [facility] Comment: Supplemental ranges: <140 mg/dL before meals <180 mg/dL all other times of the day Specimen Anatomical Collection Method Collection Time Receive d Time (Source) Location / / Volume Laterality Blood specimen 07/13/2017 3:52 AM 017 3:52 (specimen) EST AM EST Yuan Webber MD POINT OF CARE TEST ORDERABLE S Performing Organization Address City/State/ZIP Code Phon e Number [address] POCT Glucose (07/13/2017 12:21 AM EST) athologist Signature POC Glucose 80 65 - 199 [facility] mg/dL [facility] Comment: Supplemental ranges: <140 mg/dL before meals <180 mg/dL all other times of the day Specimen Anatomical Collection Method Collection Time Receive d Time (Source) Location / / Volume Laterality Blood specimen 07/13/2017 12:21 7 (specimen) AM EST 12:21 AM EST Yuan Webber MD POINT OF CARE TEST ORDERABLE S Performing Organization Address City/State/ZIP Code Phon e Number [address] POCT Glucose (07/12/2017 8:22 PM EST) athologist Signature POC Glucose 119 65 - 199 [facility] mg/dL [facility] Comment: Supplemental ranges: <140 mg/dL before meals <180 mg/dL all other times of the day Specimen Anatomical Collection Method Collection Time Receive d Time (Source) Location / / Volume Laterality Blood specimen 07/12/2017 8:22 PM 017 8:22 (specimen) EST PM EST Yuan Webber MD POINT OF CARE TEST ORDERABLE S Performing Organization Address City/State/ZIP Code Phon e Number [address] POCT Glucose (07/12/2017 4:02 PM EST) athologist Signature POC Glucose 114 65 - 199 [facility]dL [facility] Comment: Supplemental ranges: <140 mg/dL before meals <180 mg/dL all other times of the day Specimen Anatomical Collection Method Collection Time Receive d Time (Source) Location / / Volume Laterality Blood specimen 07/12/2017 4:02 PM 017 4:02 (specimen) EST PM EST Yuan Webber MD POINT OF CARE TEST ORDERABLE S Performing Organization Address City/State/ZIP Code Phon e Number [address] POCT Glucose (07/12/2017 11:28 AM EST) athologist Signature POC Glucose 164 65 - 199 [facility]dL [facility] Comment: Supplemental ranges: <140 mg/dL before meals <180 mg/dL all other times of the day Specimen Anatomical Collection Method Collection Time Receive d Time (Source) Location / / Volume Laterality Blood specimen 07/12/2017 11:28 7 (specimen) AM EST 11:28 AM EST Yuan Webber MD POINT OF CARE TEST ORDERABLE S Performing Organization Address City/State/ZIP Code Phon e Number [address] POCT Glucose (07/12/2017 7:34 AM EST) athologist Signature POC Glucose 109 65 - 199 [facility] Comment: Supplemental ranges: <140 mg/dL before meals <180 mg/dL all other times of the day Specimen Anatomical Collection Method Collection Time Receive d Time (Source) Location / / Volume Laterality Blood specimen 07/12/2017 7:34 AM 017 7:34 (specimen) EST AM EST Yuan Webber MD POINT OF CARE TEST ORDERABLE S Performing Organization Address City/State/[place] [address] (ABNORMAL) Basic Metabolic Panel (non-fasting) (07/12/2017 4:11 AM EST) athologist Signature Glucose Lvl 92 65 - 199 [facility] Comment: Diabetes: >=200 mg/dL plus symp toms BUN 31 (H) 10 - 20 mg/dL [facility] Creatinine 1.23 0.80 - 1.50 mg/dL [facility] Sodium 145 135 - 145 mmol/L [facility] Potassium Not Perf 3.5 - 5.0 mmol/L [facility] Comment: Duplicate order Please note: ??Patients with WBC >100,00 0 may have falsely elevated Potassium levels. ??For accurate Potassium quantif ication in these patients send serum separator tube (gold top) for subsequent determinations. ??Contact the Clinical Chemistry Laboratory if there are any qu estions. Chloride 106 98 - 107 mmol/L [facility] CO2 Not Perf 22 - 31 mmol/L [facility] Comment: Add-on request. Sample too old to perform test. Anion Gap Not Calculated 5 - 15 mmol/L [facility] Calcium 8.1 (L) 8.5 - 10.5 mg/dL [facility] Estimated GFR 58 (L) >=60 [facility] Comment: The reported eGFR should be multiplied b y 1.2 for patients. The MDRD is not an appropriate measure o f renal function for patients with body mass extremes or in patients with acute kidney failure. http://LoanTek/DHnkdep http://LoanTek/DHMCnkf Specimen Anatomical Collection Method Collection Time Receive d Time (Source) Location / / Volume Laterality Blood specimen 07/12/2017 4:11 AM 017 8:57 (specimen) EST AM EST Resulting Agency Comment Spec In Lab Makayla Katie QUINONES CHEMISTRY ORDERABLES Performing Organization Address City/State/ZIP [place] [address] (ABNORMAL) Prothrombin Time (07/12/2017 4:11 AM EST) P athologist Signature PT 15.4 (H) 11.8 - 14.0 [facility] LABORATORY INR 1.2 (H) 0.9 - 1.1 [facility] Comment: An INR <2.0 [...] Wilson STACIE HEMATOLOGY ORDERABLES Performing Organization Address City/[facility]/ZIP Code Phon e Number [address] Potassium (07/12/2017 4:11 AM EST) athologist Signature Potassium 3.8 3.5 - 5.0 [facility] mmol/L [facility] Comment: Please note: ??Patients with [...] Wilson STACIE CHEMISTRY ORDERABLES Performing Organization Address City/[facility]/Z[place] [address] POCT Glucose (07/12/2017 4:10 AM EST) athologist Signature POC Glucose 90 65 - 199 [facility] mg/dL [facility] Comment: Supplemental ranges: <140 mg/dL before meals <180 mg/dL all other times of the day Specimen Anatomical Collection Method Collection Time Receive d Time (Source) Location / / Volume Laterality Blood specimen 07/12/2017 4:10 AM 017 4:10 (specimen) EST AM EST Yuan Webber MD POINT OF CARE TEST ORDERABLE S Performing Organization Address City/State/[place] [address] POCT Glucose (07/11/2017 11:57 PM EST) athologist Signature POC Glucose 98 65 - 199 [facility] mg[facility]dL [facility] Comment: Supplemental ranges: <140 mg/dL before meals <180 mg/dL all other times of the day Specimen Anatomical Collection Method Collection Time Receive d Time (Source) Location / / Volume Laterality Blood specimen 07/11/2017 11:57 7 (specimen) PM EST 11:57 PM EST Yuan Webber MD POINT OF CARE TEST ORDERABLE S Performing Organization Address City/[facility]/[place] [address] POCT Glucose (07/11/2017 8:32 PM EST) athologist Signature POC Glucose 146 65 - 199 [facility] mg/dL [facility] Comment: Supplemental ranges: <140 mg/dL before meals <180 mg/dL all other times of the day Specimen Anatomical Collection Method Collection Time Receive d Time (Source) Location / / Volume Laterality Blood specimen 07/11/2017 8:32 PM 017 8:32 (specimen) EST PM EST Yuan Webber MD POINT OF CARE TEST ORDERABLE S Performing Organization Address City/State/[place] [address] XR Chest PA & [...] e xtubated, left chest tube removed, and Gilby-Suzi catheter removed since the study. Atelectasis at [...] e xtubated, left chest tube removed, and Gilby-Suzi catheter removed since the study. Atelectasis at [...] POC Glucose 223 (H) 65 - 199 [facility] mg/dL [facility] Comment: Supplemental ranges: <140 mg/dL before meals <180 mg/dL all other times of the day Specimen Anatomical Collection Method Collection Time Receive d Time (Source) Location / / Volume Laterality Blood specimen 07/11/2017 4:05 PM 017 4:05 (specimen) EST PM EST Yuan Webber MD POINT OF CARE TEST ORDERABLE S Performing Organization Address City/State/ZIP [place] [address] POCT Glucose (07/11/2017 11:55 AM EST) athologist Signature POC Glucose 176 65 - 199 [facility] mg/dL [facility] Comment: Supplemental ranges: <140 mg/dL before meals <180 mg/dL all other times of the day Specimen Anatomical Collection Method Collection Time Receive d Time (Source) Location / / Volume Laterality Blood specimen 07/11/2017 11:55 7 (specimen) AM EST 11:55 AM EST Yuan Webber MD POINT OF CARE TEST ORDERABLE S Performing Organization Address City/[facility]/ZIP Code Phon e Number [address] POCT Glucose (07/11/2017 7:53 AM EST) P athologist Signature POC Glucose 189 65 - 199 [facility] mg/dL [facility] Comment: Supplemental ranges: <140 mg/dL before meals <180 mg/dL all other times of the day Specimen Anatomical Collection Method Collection Time Receive d Time (Source) Location / / Volume Laterality Blood specimen 07/11/2017 7:53 AM 017 7:53 (specimen) EST AM EST Yuan Webber MD POINT OF CARE TEST ORDERABLE S Performing Organization Address City/[facility]/ZIP Code Phon e Number [address] POCT Glucose (07/11/2017 4:22 AM EST) P athologist Signature POC Glucose 151 65 - 199 [facility] mg/dL [facility] Comment: Supplemental ranges: <140 mg/dL before meals <180 mg/dL all other times of the day Specimen Anatomical Collection Method Collection Time Receive d Time (Source) Location / / Volume Laterality Blood specimen 07/11/2017 4:22 AM 017 4:22 (specimen) EST AM EST Yuan Webber MD POINT OF CARE TEST ORDERABLE S Performing Organization Address City/State/ZIP Code Phon e Number [address] Potassium (07/11/2017 2:20 AM EST) P athologist Signature Potassium 4.5 3.5 - 5.0 [facility] mmol/L [facility] Comment: Please note: ??Patients with [...] Organization Address City/State/ZIP Code Phon e Number [address] POCT Glucose (07/11/2017 12:17 AM EST) athologist Signature POC Glucose 162 65 - 199 [facility] mg/dL [facility] Comment: Supplemental ranges: <140 mg/dL before meals <180 mg/dL all other times of the day Specimen Anatomical Collection Method Collection Time Receive d Time (Source) Location / / Volume Laterality Blood specimen 07/11/2017 12:17 7 (specimen) AM EST 12:17 AM EST Yuan Webber MD POINT OF CARE TEST ORDERABLE S Performing Organization Address City/[facility]/[place] [address] POCT Glucose (07/10/2017 8:47 PM EST) athologist Signature POC Glucose 191 65 - 199 [facility] mg[facility]dL [facility] Comment: Supplemental ranges: <140 mg/dL before meals <180 mg/dL all other times of the day Specimen Anatomical Collection Method Collection Time Receive d Time (Source) Location / / Volume Laterality Blood specimen 07/10/2017 8:47 PM 017 8:47 (specimen) EST PM EST Yuan Webber MD POINT OF CARE TEST ORDERABLE S Performing Organization Address City/[facility]/Z[place] [address] POCT Glucose (07/10/2017 4:06 PM EST) athologist Signature POC Glucose 131 65 - 199 [facility] mg/dL [facility] Comment: Supplemental ranges: <140 mg/dL before meals <180 mg/dL all other times of the day Specimen Anatomical Collection Method Collection Time Receive d Time (Source) Location / / Volume Laterality Blood specimen 07/10/2017 4:06 PM 017 4:06 (specimen) EST PM EST Yuan Webber MD POINT OF CARE TEST ORDERABLE S Performing Organization Address City/State/[place] [address] POCT Glucose (07/10/2017 3:08 PM EST) athologist Signature POC Glucose 151 65 - 199 [place] RYAN mg/dL [facility] Comment: Supplemental ranges: <140 mg/dL before meals <180 mg/dL all other times of the day Specimen Anatomical Collection Method Collection Time Receive d Time (Source) Location / / Volume Laterality Blood specimen 07/10/2017 3:08 PM 017 3:08 (specimen) EST PM EST Yuan Webber MD POINT OF CARE TEST ORDERABLE S Performing Organization Address City/State/[place] [address] POCT Glucose (07/10/2017 2:25 PM EST) athologist Signature POC Glucose 146 65 - 199 [place] RYAN mg/dL [facility] Comment: Supplemental ranges: <140 mg/dL before meals <180 mg/dL all other times of the day Specimen Anatomical Collection Method Collection Time Receive d Time (Source) Location / / Volume Laterality Blood specimen 07/10/2017 2:25 PM 017 2:25 (specimen) EST PM EST Yuan Webber MD POINT OF CARE TEST ORDERABLE S Performing Organization Address City/State/ZIP Code Phon e Number [address] POCT Glucose (07/10/2017 1:23 PM EST) athologist Signature POC Glucose 166 65 - 199 [place] RYAN mg/dL [facility] Comment: Supplemental ranges: <140 mg/dL before meals <180 mg/dL all other times of the day Specimen Anatomical Collection Method Collection Time Receive d Time (Source) Location / / Volume Laterality Blood specimen 07/10/2017 1:23 PM 017 1:23 (specimen) EST PM EST Yuan Webber MD POINT OF CARE TEST ORDERABLE S Performing Organization Address City/State/[place] [address] POCT Glucose (07/10/2017 11:52 AM EST) P athologist Signature POC Glucose 157 65 - 199 [facility] Comment: Supplemental ranges: <140 mg/dL before meals <180 mg/dL all other times of the day Specimen Anatomical Collection Method Collection Time Receive d Time (Source) Location / / Volume Laterality Blood specimen 07/10/2017 11:52 7 (specimen) AM EST 11:52 AM EST Yuan Webber MD POINT OF CARE TEST ORDERABLE S Performing Organization Address City/State/ZIP Code Phon e Number [address] POCT Glucose (07/10/2017 11:01 AM EST) P athologist Signature POC Glucose 158 65 - 199 [facility] RYAN mg/dL [facility] Comment: Supplemental ranges: <140 mg/dL before meals <180 mg/dL all other times of the day Specimen Anatomical Collection Method Collection Time Receive d Time (Source) Location / / Volume Laterality Blood specimen 07/10/2017 11:01 7 (specimen) AM EST 11:01 AM EST Yuan Webber MD POINT OF CARE TEST ORDERABLE S Performing Organization Address City/State/ZIP Code Phon e Number [address] POCT Glucose (07/10/2017 9:54 AM EST) P athologist Signature POC Glucose 160 65 - 199 [place] RYAN mg/dL [facility] Comment: Supplemental ranges: <140 mg/dL before meals <180 mg/dL all other times of the day Specimen Anatomical Collection Method Collection Time Receive d Time (Source) Location / / Volume Laterality Blood specimen 07/10/2017 9:54 AM 017 9:54 (specimen) EST AM EST Yuan Webber MD POINT OF CARE TEST ORDERABLE S Performing Organization Address City/State/ZIP Code Phon e Number [address] POCT Glucose (07/10/2017 8:58 AM EST) athologist Signature POC Glucose 183 65 - 199 [place] RYAN mg/dL [facility] Comment: Supplemental ranges: <140 mg/dL before meals <180 mg/dL all other times of the day Specimen Anatomical Collection Method Collection Time Receive d Time (Source) Location / / Volume Laterality Blood specimen 07/10/2017 8:58 AM 017 8:58 (specimen) EST AM EST Yuan Webber MD POINT OF CARE TEST ORDERABLE S Performing Organization Address City/State/ZIP Code Phon e Number [address] POCT Glucose (07/10/2017 8:01 AM EST) athologist Signature POC Glucose 173 65 - 199 [facility] RYAN mg/dL [facility] Comment: Supplemental ranges: <140 mg/dL before meals <180 mg/dL all other times of the day Specimen Anatomical Collection Method Collection Time Receive d Time (Source) Location / / Volume Laterality Blood specimen 07/10/2017 8:01 AM 017 8:01 (specimen) EST AM EST Yuan Webber MD POINT OF CARE TEST ORDERABLE S Performing Organization Address City/State/ZIP Code Phon e Number [address] POCT Glucose (07/10/2017 7:05 AM EST) athologist Signature POC Glucose 166 65 - 199 [facility] RYAN mg/dL [facility] Comment: Supplemental ranges: <140 mg/dL before meals <180 mg/dL all other times of the day Specimen Anatomical Collection Method Collection Time Receive d Time (Source) Location / / Volume Laterality Blood specimen 07/10/2017 7:05 AM 017 7:05 (specimen) EST AM EST Yuan Webber MD POINT OF CARE TEST ORDERABLE S Performing Organization Address City/State/Z[place] [address] POCT Glucose (07/10/2017 6:00 AM EST) P athologist Signature POC Glucose 162 65 - 199 [facility] mg/dL [facility] Comment: Supplemental ranges: <140 mg/dL before meals <180 mg/dL all other times of the day Specimen Anatomical Collection Method Collection Time Receive d Time (Source) Location / / Volume Laterality Blood specimen 07/10/2017 6:00 AM 017 6:00 (specimen) EST AM EST Yuan Webber MD POINT OF CARE TEST ORDERABLE S Performing Organization Address City/State/[place] [address] (ABNORMAL) Differential, Automated (07/10/2017 4:28 AM EST) Patholo gist Method Time Signature Neutrophils % 87.9 % [facility] Neutr Abs (ANC) 10.70 (H) 1.70 - [facility] 6.10 [facility] x10(3)/[facility] L LABORATORY Lymphocytes % 3.9 % [facility] Lymphocytes Abs 0.5 (L) 0.9 - 3.2 [facility] x10(3)/[facility] LABORATORY Monocytes % 7.0 % [facility] Monocyte Abs 0.8 0.3 - 0.9 [facility] x10(3)/[facility] LABORATORY Eosinophils % 0.3 % [facility] Eosinophils Abs 0.0 0.0 - 0.4 [facility] x10(3)/[facility] LABORATORY Basophils % 0.2 % [facility] Basophils Abs 0.0 0.0 - 0.1 [facility] x10(3)/[facility] LABORATORY Immature Gran % 0.70 % [facility] Comment: Immature granulocytes(IG's)percentage an d absolute count will include metamyelocytes, myelocytes, and promyelo cytes. Blood smears from CBCs yielding IG's will be scanned manually for concor dance. If this scan disagrees with the automated IG or if promyelocytes are not ed, a manual differential will be performed. Melisa Gran Abs 0.08 (H) 0.00 - 0.04 x10(3)/[facility] LABORATORY Specimen Anatomical Collection Method Collection Time Receive d Time (Source) Location / / Volume Laterality Blood specimen 07/10/2017 4:28 AM 017 4:36 (specimen) EST AM EST Resulting Agency Comment Spec In Lab Yuan Webber MD HEMATOLOGY ORDERABLES Performing Organization Address City/State/ZIP Code Phon e Number [place] [id number] (ABNORMAL) Hemogram (07/10/2017 4:28 AM EST) Analysis Performed At Patho logist Time Signature WBC 12.2 (H) 4.0 - 9.5 [facility] x10(3)/[facility] LABORATORY RBC 3.31 (L) 4.58 - [facility]54 [facility] x10(6)/[facility] LABORATORY Hemoglobin 9.8 (L) 13.7 - [facility] 16[facility] gm/dL [facility] Hematocrit 30.0 (L) 40.5 - [facility] 48.5 % [facility] MCV 90.6 82.9 - [facility] 93.[address] [facility] LABORATORY MCH 29.6 27.5 - [facility] 32.1 pg [facility] MCHC 32.7 32.0 - [facility] 35[facility] gm/dL [facility] Platelets 135 (L) 145 - 357 [facility] x10(3)/[facility] RDWSD 50.8 (H) 36.0 - [facility] 45.0 [facility] RDWCV 15.4 (H) 11.4 - [facility] 13.8 % [facility] MPV 10.0 7.6 - 12.9 [facility] LABORATORY nRBC % Auto 0.0 % [facility] nRBC Abs Auto 0.000 0.000 - [facility] 0.000 [facility] x10(3)/[facility] LABORATORY Specimen Anatomical Collection Method Collection Time Receive d Time (Source) Location / / Volume Laterality Blood specimen 07/10/2017 4:28 AM 017 4:36 (specimen) EST AM EST Resulting Agency Comment Spec In Lab Yuan Webber MD HEMATOLOGY ORDERABLES Performing Organization Address City/State/ZIP [place] [address] (ABNORMAL) Basic Metabolic Panel (non-fasting) (07/10/2017 4:28 AM EST) P athologist Signature Glucose Lvl 178 65 - 199 [facility] mg/dL [facility] Comment: Diabetes: >=200 mg/dL plus symp toms BUN 20 10 - 20 mg/dL [facility] Creatinine 1.19 0.80 - 1.50 mg/dL [facility] Sodium 143 135 - 145 mmol/L [facility] [...] estions. Chloride 107 98 - 107 mmol/L [facility] CO2 21 (L) 22 - 31 mmol/L [facility] Anion Gap 15 5 - 15 mmol/L [facility] Calcium 7.4 (L) 8.5 - 10.5 mg/dL [facility] Estimated GFR 60 >=60 [facility] Comment: The reported eGFR should be multiplied b y 1.2 for patients. The MDRD is not an appropriate measure o f renal function for patients with body mass extremes or in patients with acute kidney failure. http://[employer].Verifico/DHnkdep http://SocialVolt.Verifico/DHMCnkf Specimen Anatomical Collection Method Collection Time Receive d Time (Source) Location / / Volume Laterality Blood specimen 07/10/2017 4:28 AM 017 4:36 (specimen) EST AM EST Resulting Agency Comment Spec In Lab Yuan Webber MD CHEMISTRY ORDERABLES Performing Organization Address City/State/ZIP Code Phon e Number [address] POCT Glucose (07/10/2017 4:26 AM EST) athologist Signature POC Glucose 176 65 - 199 [facility] Comment: Supplemental ranges: <140 mg/dL before meals <180 mg/dL all other times of the day Specimen Anatomical Collection Method Collection Time Receive d Time (Source) Location / / Volume Laterality Blood specimen 07/10/2017 4:26 AM 017 4:26 (specimen) EST AM EST Yuan Webber MD POINT OF CARE TEST ORDERABLE S Performing Organization Address City/[facility]/ZIP [place] [address] (ABNORMAL) POCT Glucose (07/10/2017 3:06 AM EST) athologist Signature POC Glucose 204 (H) 65 - 199 [facility] Comment: Supplemental ranges: <140 mg/dL before meals <180 mg/dL all other times of the day Specimen Anatomical Collection Method Collection Time Receive d Time (Source) Location / / Volume Laterality Blood specimen 07/10/2017 3:06 AM 017 3:06 (specimen) EST AM EST Yuan Webber MD POINT OF CARE TEST ORDERABLE S Performing Organization Address City/[facility]/[place] [address] (ABNORMAL) POCT Glucose (07/10/2017 2:10 AM EST) athologist Signature POC Glucose 203 (H) 65 - 199 [place] RYAN mg/dL [facility] Comment: Supplemental ranges: <140 mg/dL before meals <180 mg/dL all other times of the day Specimen Anatomical Collection Method Collection Time Receive d Time (Source) Location / / Volume Laterality Blood specimen 07/10/2017 2:10 AM 017 2:10 (specimen) EST AM EST Yuan Webber MD POINT OF CARE TEST ORDERABLE S Performing Organization Address City/State/ZIP Code Phon e Number [address] POCT Glucose (07/10/2017 1:09 AM EST) athologist Signature POC Glucose 196 65 - 199 K[place]AL[place] ZHAORYAN mg/dL [facility] Comment: Supplemental ranges: <140 mg/dL before meals <180 mg/dL all other times of the day Specimen Anatomical Collection Method Collection Time Receive d Time (Source) Location / / Volume Laterality Blood specimen 07/10/2017 1:09 AM 017 1:09 (specimen) EST AM EST Yuan Webber MD POINT OF CARE TEST ORDERABLE S Performing Organization Address City/State/Z[place] [address] POCT Glucose (07/10/2017 12:10 AM EST) athologist Signature POC Glucose 173 65 - 199 [place] RYAN mg/dL [facility] Comment: Supplemental ranges: <140 mg/dL before meals <180 mg/dL all other times of the day Specimen Anatomical Collection Method Collection Time Receive d Time (Source) Location / / Volume Laterality Blood specimen 07/10/2017 12:10 7 (specimen) AM EST 12:10 AM EST Yuan Webber MD POINT OF CARE TEST ORDERABLE S Performing Organization Address City/State/ZIP Code Phon e Number [address] POCT Glucose (07/09/2017 11:01 PM EST) athologist Signature POC Glucose 140 65 - 199 K[place] ZHAORYAN mg/dL [facility] Comment: Supplemental ranges: <140 mg/dL before meals <180 mg/dL all other times of the day Specimen Anatomical Collection Method Collection Time Receive d Time (Source) Location / / Volume Laterality Blood specimen 07/09/2017 11:01 7 (specimen) PM EST 11:01 PM EST Yuan Webber MD POINT OF CARE TEST ORDERABLE S Performing Organization Address City/State/[place] [address] POCT Glucose (07/09/2017 10:05 PM EST) athologist Signature POC Glucose 144 65 - 199 [facility] RYAN mg/dL [facility] Comment: Supplemental ranges: <140 mg/dL before meals <180 mg/dL all other times of the day Specimen Anatomical Collection Method Collection Time Receive d Time (Source) Location / / Volume Laterality Blood specimen 07/09/2017 10:05 7 (specimen) PM EST 10:05 PM EST Yuan Webber MD POINT OF CARE TEST ORDERABLE S Performing Organization Address City/State/ZIP Code Phon e Number [address] POCT Glucose (07/09/2017 9:31 PM EST) athologist Signature POC Glucose 121 65 - 199 [place] RYAN mg/dL [facility] Comment: Supplemental ranges: <140 mg/dL before meals <180 mg/dL all other times of the day Specimen Anatomical Collection Method Collection Time Receive d Time (Source) Location / / Volume Laterality Blood specimen 07/09/2017 9:31 PM 017 9:31 (specimen) EST PM EST Yuan Webber MD POINT OF CARE TEST ORDERABLE S Performing Organization Address City/State/ZIP Code Phon e Number [address] POCT Glucose (07/09/2017 9:03 PM EST) athologist Signature POC Glucose 98 65 - 199 [place] RYAN mg/dL [facility] Comment: Supplemental ranges: <140 mg/dL before meals <180 mg/dL all other times of the day Specimen Anatomical Collection Method Collection Time Receive d Time (Source) Location / / Volume Laterality Blood specimen 07/09/2017 9:03 PM 017 9:03 (specimen) EST PM EST Yuan Webber MD POINT OF CARE TEST ORDERABLE S Performing Organization Address City/State/ZIP Code Phon e Number [address] POCT Glucose (07/09/2017 8:09 PM EST) athologist Signature POC Glucose 117 65 - 199 [facility] Comment: Supplemental ranges: <140 mg/dL before meals <180 mg/dL all other times of the day Specimen Anatomical Collection Method Collection Time Receive d Time (Source) Location / / Volume Laterality Blood specimen 07/09/2017 8:09 PM 017 8:09 (specimen) EST PM EST Yuan Webber MD POINT OF CARE TEST ORDERABLE S Performing Organization Address City/State/ZIP Code Phon e Number [address] POCT Glucose (07/09/2017 5:40 PM EST) athologist Signature POC Glucose 155 65 - 199 [facility] Comment: Supplemental ranges: <140 mg/dL before meals <180 mg/dL all other times of the day Specimen Anatomical Collection Method Collection Time Receive d Time (Source) Location / / Volume Laterality Blood specimen 07/09/2017 5:40 PM 017 5:40 (specimen) EST PM EST Yuan Webber MD POINT OF CARE TEST ORDERABLE S Performing Organization Address City/State/ZIP Code Phon e Number [address] POCT Glucose (07/09/2017 4:24 PM EST) athologist Signature POC Glucose 164 65 - 199 [facility] Comment: Supplemental ranges: <140 mg/dL before meals <180 mg/dL all other times of the day Specimen Anatomical Collection Method Collection Time Receive d Time (Source) Location / / Volume Laterality Blood specimen 07/09/2017 4:24 PM 017 4:24 (specimen) EST PM EST Yuan Webber MD POINT OF CARE TEST ORDERABLE S Performing Organization Address City/State/[place] [address] POCT Glucose (07/09/2017 3:19 PM EST) athologist Signature POC Glucose 166 65 - 199 [place] RYAN mg/dL [facility] Comment: Supplemental ranges: <140 mg/dL before meals <180 mg/dL all other times of the day Specimen Anatomical Collection Method Collection Time Receive d Time (Source) Location / / Volume Laterality Blood specimen 07/09/2017 3:19 PM 017 3:19 (specimen) EST PM EST Yuan Webber MD POINT OF CARE TEST ORDERABLE S Performing Organization Address City/State/[place] [address] POCT Glucose (07/09/2017 2:26 PM EST) athologist Signature POC Glucose 179 65 - 199 [place] RYAN mg/dL [facility] Comment: Supplemental ranges: <140 mg/dL before meals <180 mg/dL all other times of the day Specimen Anatomical Collection Method Collection Time Receive d Time (Source) Location / / Volume Laterality Blood specimen 07/09/2017 2:26 PM 017 2:26 (specimen) EST PM EST Yuan Webber MD POINT OF CARE TEST ORDERABLE S Performing Organization Address City/State/Z[place] [address] (ABNORMAL) POCT Glucose (07/09/2017 1:29 PM EST) athologist Signature POC Glucose 210 (H) 65 - 199 [place] RYAN mg/dL [facility] Comment: Supplemental ranges: <140 mg/dL before meals <180 mg/dL all other times of the day Specimen Anatomical Collection Method Collection Time Receive d Time (Source) Location / / Volume Laterality Blood specimen 07/09/2017 1:29 PM 017 1:29 (specimen) EST PM EST Yuan Webber MD POINT OF CARE TEST ORDERABLE S Performing Organization Address City/State/ZIP Code Phon e Number [address] POCT Glucose (07/09/2017 12:20 PM EST) P athologist Signature POC Glucose 172 65 - 199 [facility] Comment: Supplemental ranges: <140 mg/dL before meals <180 mg/dL all other times of the day Specimen Anatomical Collection Method Collection Time Receive d Time (Source) Location / / Volume Laterality Blood specimen 07/09/2017 12:20 7 (specimen) PM EST 12:20 PM EST Yuan Webber MD POINT OF CARE TEST ORDERABLE S Performing Organization Address City/State/Z[place] [address] POCT Glucose (07/09/2017 11:24 AM EST) athologist Signature POC Glucose 156 65 - 199 [facility] Comment: Supplemental ranges: <140 mg/dL before meals <180 mg/dL all other times of the day Specimen Anatomical Collection Method Collection Time Receive d Time (Source) Location / / Volume Laterality Blood specimen 07/09/2017 11:24 7 (specimen) AM EST 11:24 AM EST Yuan Webber MD POINT OF CARE TEST ORDERABLE S Performing Organization Address City/State/ZIP Code Phon e Number [address] POCT Glucose (07/09/2017 11:11 AM EST) P athologist Signature POC Glucose 172 65 - 199 [facility] Comment: Supplemental ranges: <140 mg/dL before meals <180 mg/dL all other times of the day Specimen Anatomical Collection Method Collection Time Receive d Time (Source) Location / / Volume Laterality Blood specimen 07/09/2017 11:11 7 (specimen) AM EST 11:11 AM EST Yuan Webber MD POINT OF CARE TEST ORDERABLE S Performing Organization Address City/State/ZIP Code Phon e Number [address] POCT Glucose (07/09/2017 10:08 AM EST) P athologist Signature POC Glucose 176 65 - 199 K[place] ZHAORYAN mg/dL [facility] Comment: Supplemental ranges: <140 mg/dL before meals <180 mg/dL all other times of the day Specimen Anatomical Collection Method Collection Time Receive d Time (Source) Location / / Volume Laterality Blood specimen 07/09/2017 10:08 7 (specimen) AM EST 10:08 AM EST Yuan Webber MD POINT OF CARE TEST ORDERABLE S Performing Organization Address City/State/Z[place] [address] POCT Glucose (07/09/2017 8:02 AM EST) P athologist Signature POC Glucose 178 65 - 199 KATALINA ZHAORYAN mg/dL [facility] Comment: Supplemental ranges: <140 mg/dL before meals <180 mg/dL all other times of the day Specimen Anatomical Collection Method Collection Time Receive d Time (Source) Location / / Volume Laterality Blood specimen 07/09/2017 8:02 AM 017 8:02 (specimen) EST AM EST Yuan Webber MD POINT OF CARE TEST ORDERABLE S Performing Organization Address City/State/[place] [address] (ABNORMAL) BLOOD GAS 2 ARTERIAL (07/09/2017 5:37 AM EST) Analysis Performed At Patho logist Time Signature pH Art 7.36 7.35 - [facility] 7.45 [facility] pCO2 Art 38 35 - 45 [facility] mmHg [facility] pO2 Art 79 (L) 85 - 104 [facility] LABORATORY HCO3 Art 20.9 20.0 - [facility] 26.0 [facility] mmol/L [facility] BE Art -4.6 (L) -3.0 - 3.0 [facility] mmol/L [facility] Hgb Blood Gas 10.5 (L) 13.7 - [facility] 16.5 gm/dL [facility] O2HB Art 93.8 (L) 94.0 - [facility] 97.0 % [facility] COHB Art 0.3 % [facility] Comment: Nonsmokers: 0.5-1.5% COHB Smokers: Variable, but usually less than 10% Toxic: 20-30% COHB Lethal: Greater than 60% COHB METHB Art 0.6 <=1.5 % [facility] Na Whole Blood 141 135 - 145 mmol/L [facility] K Whole Blood 4.5 3.5 - 5.0 mmol/L [facility] Comment: Please note: Patients with WBC >100,000 may have falsely elevated Potassium levels. Contact the Clinical Chemistry L aboratory if there are any questions. ICa Whole Blood 1.01 (L) 1.15 - 1.33 mmol/L [facility] Comment: Note: ??Total bilirubin higher than 20 m g/dL may lead to falsely low ionized calcium. CL Whole Blood 113 (H) 98 - 107 mmol/L [facility] Gluc Whole Bld 175 65 - 199 mg/dL [facility] Comment: Diabetes: >=200 mg/dL plus symp toms. Lactate WB 1.0 0.5 - 2.2 mmol/L [facility] FIO2 Art 40 % [facility] PF Ratio Art 198 [facility] LAB[facility]ORY Specimen Anatomical Collection Method Collection Time Receive d Time (Source) Location / / Volume Laterality Blood specimen 07/09/2017 5:37 AM 017 5:37 (specimen) EST AM EST Yuan Webber MD CHEMISTRY ORDERABLES Performing Organization Address City/State/ZIP [place] [address] POCT Glucose (07/09/2017 3:27 AM EST) athologist Signature POC Glucose 192 65 - 199 [facility] mg/dL [facility] Comment: Supplemental ranges: <140 mg/dL before meals <180 mg/dL all other times of the day Specimen Anatomical Collection Method Collection Time Receive d Time (Source) Location / / Volume Laterality Blood specimen 07/09/2017 3:27 AM 017 3:27 (specimen) EST AM EST Yuan Webber MD POINT OF CARE TEST ORDERABLE S Performing Organization Address City/State/ZIP [place] [address] (ABNORMAL) Basic Metabolic Panel (non-fasting) (07/09/2017 2:30 AM EST) athologist Signature Glucose Lvl 179 65 - 199 [facility] mg/dL [facility] Comment: Diabetes: >=200 mg/dL plus symp toms BUN 17 10 - 20 mg/dL [facility] Creatinine 1.34 0.80 - 1.50 mg/dL [facility] Sodium 144 135 - 145 mmol/L [facility] Potassium Not Perf 3.5 - 5.0 mmol/L [facility] Comment: Duplicate order Please note: ??Patients with WBC >100,00 0 may have falsely elevated Potassium levels. ??For accurate Potassium quantif ication in these patients send serum separator tube (gold top) for subsequent determinations. ??Contact the Clinical Chemistry Laboratory if there are any qu estions. Chloride 111 (H) 98 - 107 mmol/L [facility] CO2 21 (L) 22 - 31 mmol/L [facility] Anion Gap 12 5 - 15 mmol/L [facility] Calcium 7.1 (L) 8.5 - 10.5 mg/dL [facility] Comment: result rechecked-[id number] Estimated GFR 53 (L) >=60 [facility] Comment: The reported eGFR should be multiplied b y 1.2 for patients. The MDRD is not an appropriate measure o f renal function for patients with body mass extremes or in patients with acute kidney failure. [email or web address]/DHnkdep [email or web address] Specimen Anatomical Collection Method Collection Time Receive d Time (Source) Location / / Volume Laterality Blood specimen Venous Draw / 07/09/2017 2:30 AM 2016 2:42 (specimen) Unknown EST AM EST Resulting Agency Comment Spec In Lab Yuan Webber MD CHEMISTRY ORDERABLES Performing Organization Address City/[facility] [place] [address] (ABNORMAL) Potassium (07/09/2017 2:30 AM EST) P athologist Signature Potassium 5.1 (H) 3.5 - 5.0 [facility]/L [facility] Comment: Please note: ??Patients with [...] Webber MD CHEMISTRY ORDERABLES Performing Organization Address City/[facility] [place] [address] (ABNORMAL) Hemogram (07/09/2017 2:30 AM EST) Analysis Performed At Patho logist Time Signature WBC 12.5 (H) 4.0 - 9.5 [facility] x10(3)/[facility] LABORATORY RBC 3.38 (L) 4.58 - KATLAINA RYAN 5.54 [facility] x10(6)/[facility] LABORATORY Hemoglobin 10.1 (L) 13.7 - [place] RYAN 16.5 gm/dL [facility] Hematocrit 30.3 (L) 40.5 - [place] RYAN 48.5 % [facility] MCV 89.6 82.9 - KATALINA DAVIS [address] [facility] LABORATORY MCH 29.9 27.5 - [place] OLIVASCK 32.1 pg [facility] MCHC 33.3 32.0 - [place] OLIVASCK 35.7 gm/dL [facility] Platelets 127 (L) 145 - 357 [facility] x10(3)/[facility] LABORATORY RDWSD 49.3 (H) 36.0 - KATALINA DAVIS [address] [facility] LABORATORY RDWCV 15.2 (H) 11.4 - KATALINA DAVIS 13.8 % [facility] MPV 9.9 7.6 - 12.[address] [facility] LABORATORY nRBC % Auto 0.0 % [facility] nRBC Abs Auto 0.000 0.000 - [place]INA ZHAORYAN 0.000 [facility] x10(3)/[facility] LABORATORY Specimen Anatomical Collection Method Collection Time Receive d Time (Source) Location / / Volume Laterality Blood specimen 07/09/2017 2:30 AM 017 2:41 (specimen) EST AM EST Resulting Agency Comment Spec In Lab Yuan Webber MD HEMATOLOGY ORDERABLES Performing Organization Address City/[facility]/ZIP Code Phon e Number [address] POCT Glucose (07/09/2017 2:10 AM EST) athologist Signature POC Glucose 169 65 - 199 [facility] Comment: Supplemental ranges: <140 mg/dL before meals <180 mg/dL all other times of the day Specimen Anatomical Collection Method Collection Time Receive d Time (Source) Location / / Volume Laterality Blood specimen 07/09/2017 2:10 AM 017 2:10 (specimen) EST AM EST Yuan Webber MD POINT OF CARE TEST ORDERABLE S Performing Organization Address City/[facility]/ZIP Code Phon e Number [address] POCT Glucose (07/09/2017 1:01 AM EST) athologist Signature POC Glucose 173 65 - 199 [place] RYAN mg/dL [facility] Comment: Supplemental ranges: <140 mg/dL before meals <180 mg/dL all other times of the day Specimen Anatomical Collection Method Collection Time Receive d Time (Source) Location / / Volume Laterality Blood specimen 07/09/2017 1:01 AM 017 1:01 (specimen) EST AM EST Yuan Webber MD POINT OF CARE TEST ORDERABLE S Performing Organization Address City/[facility]/[place] [address] Blood culture (07/09/2017 12:40 AM EST) Patholo gist Method Time Signature Blood Culture No growth KATALINA DAVIS at 5 days. [facility] Specimen Anatomical Collection Method Collection Time Receive d Time (Source) Location / / Volume Laterality Blood specimen STRUCTURE OF RIGHT 07/09/2017 12:40 3:58 (specimen) UPPER LIMB / AM EST AM EST Unknown Resulting Agency Comment Spec In Lab Yuan Webber MD MICROBIOLOGY - BLOOD ORDERAB LES Performing Organization Address City/[facility]/[place] [address] Blood culture (07/09/2017 12:30 AM EST) Patholo gist Method Time Signature Blood Culture No growth KATALINA DAVIS at 5 days. [facility] Specimen Anatomical Collection Method Collection Time Receive d Time (Source) Location / / Volume Laterality Blood specimen STRUCTURE OF LEFT 07/09/2017 12:30 1211/2016 3:59 (specimen) UPPER LIMB / AM EST AM EST Unknown Resulting Agency Comment Spec In Lab Yuan Webber MD MICROBIOLOGY - BLOOD ORDERAB LES Performing Organization Address City/[facility]/[place] [address] (ABNORMAL) Urinalysis Microscopic Exam (07/09/2017 12:05 AM EST) Analysis Performed At Patho logist Time Signature RBC UA 32 (H) 0 - 3 /HPF [facility] WBC UA 5 (H) 0 - 3 /HPF [facility] Squam Epith UA <1 <=4 /HPF [facility] Hyaline Cast 17 (H) 0 - 2 /LPF [facility] Gran Cast UA 1 (H) <=0 /LPF [facility] Uric Ac Bianca Rare (A) None /HPF [facility]OR[facility]ORY Specimen (Source) Anatomical Collection Method Collection Time Re ceived Time Location / / Volume Laterality Urine specimen 07/09/2017 12:05 7 obtained via AM EST 12:39 AM EST indwelling urinary catheter (specimen) Resulting Agency Comment Spec In Lab Yuan Webber MD URINE ORDERABLES Performing Organization Address City/State/ZIP [place] [address] (ABNORMAL) Urinalysis with reflex Culture (07/09/2017 12:05 AM EST) [facility] gist Method Time Signature Glucose UA Negative Negative [facility] mg/dL [facility] Protein UA 30 (A) Negative [facility] mg/dL [facility] Bilirubin UA Negative Negative [facility] mg/dL [facility] Comment: Clinical correlation required for positi ve Urine Bilirubin results as false positive may occur with some drugs and d rug related products. If a false positive is suspected a serum total bili yeager should be considered if clinically indicated. Urobilinogen UA Normal Normal mg/dL [facility] pH UA 5.0 5.0 - 8.0 [facility] Blood UA Moderate (A) Negative mg/dL [facility] Ketones UA Negative Negative mg/dL [facility] Nitrite UA Negative Negative [facility] Leukocytes UA Negative Negative [facility] LABORATORY Appearance UA Hazy (A) Clear [facility] Spec [place] UA 1.025 1.002 - 1.030 [facility] Color UA Yellow Yellow [facility] Culture Reflexed No [facility] Specimen (Source) Anatomical Collection Method Collection Time Re ceived Time Location / / Volume Laterality Urine specimen 07/09/2017 12:05 7 obtained via AM EST 12:39 AM EST indwelling urinary catheter (specimen) Resulting Agency Comment Spec In Lab Yuan Webber MD URINE ORDERABLES Performing Organization Address City/[facility]/ZIP Code Phon e Number [address] POCT Glucose (07/08/2017 11:01 PM EST) P athologist Signature POC Glucose 191 65 - 199 [facility] Comment: Supplemental ranges: <140 mg/dL before meals <180 mg/dL all other times of the day Specimen Anatomical Collection Method Collection Time Receive d Time (Source) Location / / Volume Laterality Blood specimen 07/08/2017 11:01 7 (specimen) PM EST 11:01 PM EST Yuan Webber MD POINT OF CARE TEST ORDERABLE S Performing Organization Address City/[facility]/[place] [address] POCT Glucose (07/08/2017 10:04 PM EST) P athologist Signature POC Glucose 198 65 - 199 [facility] Comment: Supplemental ranges: <140 mg/dL before meals <180 mg/dL all other times of the day Specimen Anatomical Collection Method Collection Time Receive d Time (Source) Location / / Volume Laterality Blood specimen 07/08/2017 10:04 7 (specimen) PM EST 10:04 PM EST Yuan Webber MD POINT OF CARE TEST ORDERABLE S Performing Organization Address City/[facility]/Z[place] [address] Prepare Albumin 5% in 250 mL (07/08/2017 8:49 PM EST) P athologist Signature Dispensed? Yes [facility] Specimen Anatomical Collection Method Collection Time Receive d Time (Source) Location / / Volume Laterality Blood specimen No Charge / 07/08/2017 8:49 PM 017 8:51 (specimen) Unknown EST PM EST Resulting Agency Comment Spec In Lab [facility] ORDERABLES Performing Organization Address City/State/ZIP [place] [address] POCT Glucose (07/08/2017 8:28 PM EST) athologist Signature POC Glucose 195 65 - 199 [place] RYAN mg/dL [facility] Comment: Supplemental ranges: <140 mg/dL before meals <180 mg/dL all other times of the day Specimen Anatomical Collection Method Collection Time Receive d Time (Source) Location / / Volume Laterality Blood specimen 07/08/2017 8:28 PM 017 8:28 (specimen) EST PM EST Yuan Webber MD POINT OF CARE TEST ORDERABLE S Performing Organization Address City/[facility]/[place] [address] (ABNORMAL) POCT Glucose (07/08/2017 7:13 PM EST) athologist Signature POC Glucose 220 (H) 65 - 199 [place]HAORYAN mg/dL [facility] Comment: Supplemental ranges: <140 mg/dL before meals <180 mg/dL all other times of the day Specimen Anatomical Collection Method Collection Time Receive d Time (Source) Location / / Volume Laterality Blood specimen 07/08/2017 7:13 PM 017 7:13 (specimen) EST PM EST Yuan Webber MD POINT OF CARE TEST ORDERABLE S Performing Organization Address City/[facility]/[place] [address] POCT Glucose (07/08/2017 5:04 PM EST) athologist Signature POC Glucose 147 65 - 199 [place] RYAN mg/dL [facility] Comment: Supplemental ranges: <140 mg/dL before meals <180 mg/dL all other times of the day Specimen Anatomical Collection Method Collection Time Receive d Time (Source) Location / / Volume Laterality Blood specimen 07/08/2017 5:04 PM 017 5:04 (specimen) EST PM EST Yuan Webber MD POINT OF CARE TEST ORDERABLE S Performing Organization Address City/State/ZIP [place] [address] (ABNORMAL) BLOOD GAS 2 ARTERIAL (07/08/2017 4:13 PM EST) Analysis Performed At Patho logist Time Signature pH Art 7.38 7.35 - [facility] 7.45 [facility] pCO2 Art 36 35 - 45 [facility] mmHg [facility] pO2 Art 91 85 - 104 [facility] mmHg [facility] HCO3 Art 20.9 20.0 - [facility] 26.0 [facility] mmol/L [facility] LABORATORY BE Art -4.2 (L) -3.0 - 3.0 [facility] mmol/L [facility] Hgb Blood Gas 11.7 (L) 13.7 - [facility] 16.5 gm/dL [facility] O2HB Art 95.1 94.0 - [facility] 97.0 % [facility] COHB Art 0.6 % [facility] Comment: Nonsmokers: 0.5-1.5% COHB Smokers: Variable, but usually less than 10% Toxic: 20-30% COHB Lethal: Greater than 60% COHB METHB Art 0.6 <=1.5 % [facility] Na Whole Blood 139 135 - 145 mmol/L [facility] K Whole Blood 4.2 3.5 - 5.0 mmol/L [facility] Comment: Please note: Patients with WBC >100,000 may have falsely elevated Potassium levels. Contact the Clinical Chemistry L aboratory if there are any questions. ICa Whole Blood 1.05 (L) 1.15 - 1.33 mmol/L [facility] Comment: Note: ??Total bilirubin higher than 20 m g/dL may lead to falsely low ionized calcium. CL Whole Blood 110 (H) 98 - 107 mmol/L [facility] Gluc Whole Bld 155 65 - 199 mg/dL [facility] Comment: Diabetes: >=200 mg/dL plus symp toms. Lactate WB 1.4 0.5 - 2.2 mmol/L [facility] FIO2 Art 40 % [facility] PF Ratio Art 228 [facility] Specimen Anatomical Collection Method Collection Time Receive d Time (Source) Location / / Volume Laterality Blood specimen 07/08/2017 4:13 PM 017 4:13 (specimen) EST PM EST Yuan Webber MD CHEMISTRY ORDERABLES Performing Organization Address City/State/Z[place] [address] POCT Glucose (07/08/2017 4:01 PM EST) athologist Signature POC Glucose 148 65 - 199 [facility] Comment: Supplemental ranges: <140 mg/dL before meals <180 mg/dL all other times of the day Specimen Anatomical Collection Method Collection Time Receive d Time (Source) Location / / Volume Laterality Blood specimen 07/08/2017 4:01 PM 017 4:01 (specimen) EST PM EST Yuan Webber MD POINT OF CARE TEST ORDERABLE S Performing Organization Address City/State/ZIP Code Phon e Number [address] POCT Glucose (07/08/2017 3:21 PM EST) athologist Signature POC Glucose 118 65 - 199 [place] RYAN mg/dL [facility] Comment: Supplemental ranges: <140 mg/dL before meals <180 mg/dL all other times of the day Specimen Anatomical Collection Method Collection Time Receive d Time (Source) Location / / Volume Laterality Blood specimen 07/08/2017 3:21 PM 017 3:21 (specimen) EST PM EST Yuan Webber MD POINT OF CARE TEST ORDERABLE S Performing Organization Address City/State/ZIP Code Phon e Number [address] POCT Glucose (07/08/2017 2:01 PM EST) athologist Signature POC Glucose 129 65 - 199 [facility] Comment: Supplemental ranges: <140 mg/dL before meals <180 mg/dL all other times of the day Specimen Anatomical Collection Method Collection Time Receive d Time (Source) Location / / Volume Laterality Blood specimen 07/08/2017 2:01 PM 017 2:01 (specimen) EST PM EST Yuan Webber MD POINT OF CARE TEST ORDERABLE S Performing Organization Address City/State/ZIP Code Phon e Number [address] POCT Glucose (07/08/2017 11:53 AM EST) athologist Signature POC Glucose 156 65 - 199 [place] RYAN mg/dL [facility] Comment: Supplemental ranges: <140 mg/dL before meals <180 mg/dL all other times of the day Specimen Anatomical Collection Method Collection Time Receive d Time (Source) Location / / Volume Laterality Blood specimen 07/08/2017 11:53 7 (specimen) AM EST 11:53 AM EST Yuan Webber MD POINT OF CARE TEST ORDERABLE S Performing Organization Address City/State/Z[place] [address] POCT Glucose (07/08/2017 11:04 AM EST) athologist Signature POC Glucose 181 65 - 199 K[place] RYAN mg/dL [facility] Comment: Supplemental ranges: <140 mg/dL before meals <180 mg/dL all other times of the day Specimen Anatomical Collection Method Collection Time Receive d Time (Source) Location / / Volume Laterality Blood specimen 07/08/2017 11:04 7 (specimen) AM EST 11:04 AM EST Yuan Webber MD POINT OF CARE TEST ORDERABLE S Performing Organization Address City/State/[place] [address] (ABNORMAL) POCT Glucose (07/08/2017 9:24 AM EST) P athologist Signature POC Glucose 203 (H) 65 - 199 [place] RYAN mg/dL [facility] Comment: Supplemental ranges: <140 mg/dL before meals <180 mg/dL all other times of the day Specimen Anatomical Collection Method Collection Time Receive d Time (Source) Location / / Volume Laterality Blood specimen 07/08/2017 9:24 AM 017 9:24 (specimen) EST AM EST Yuan Webber MD POINT OF CARE TEST ORDERABLE S Performing Organization Address City/[facility]/[place] [address] APTT (07/08/2017 8:40 AM EST) P athologist Signature PTT 33 25 - 35 sec [facility] Comment: The recommended therapeutic [...] Webber MD HEMATOLOGY ORDERABLES Performing Organization Address City/[facility]/[place] [address] (ABNORMAL) Prothrombin Time (07/08/2017 8:40 AM EST) P athologist Signature PT 15.6 (H) 11.8 - 14.0 [facility] LABORATORY INR 1.3 (H) 0.9 - 1.1 [facility] Comment: An INR <2.0 [...] Organization Address City/State/[place] [address] (ABNORMAL) POCT Glucose (07/08/2017 7:38 AM EST) athologist Signature POC Glucose 232 (H) 65 - 199 [facility]dL [facility] Comment: Supplemental ranges: <140 mg/dL before meals <180 mg/dL all other times of the day Specimen Anatomical Collection Method Collection Time Receive d Time (Source) Location / / Volume Laterality Blood specimen 07/08/2017 7:38 AM 017 7:38 (specimen) EST AM EST Yuan Webber MD POINT OF CARE TEST ORDERABLE S Performing Organization Address City/[facility]/[place] [address] (ABNORMAL) POCT Glucose (07/08/2017 7:07 AM EST) athologist Signature POC Glucose 234 (H) 65 - 199 [facility]dL [facility] Comment: Supplemental ranges: <140 mg/dL before meals <180 mg/dL all other times of the day Specimen Anatomical Collection Method Collection Time Receive d Time (Source) Location / / Volume Laterality Blood specimen 07/08/2017 7:07 AM 017 7:07 (specimen) EST AM EST Yuan Webber MD POINT OF CARE TEST ORDERABLE S Performing Organization Address City/[facility]/Z[place] [address] (ABNORMAL) POCT Glucose (07/08/2017 6:04 AM EST) athologist Signature POC Glucose 225 (H) 65 - 199 [facility] RYAN mg/dL [facility] Comment: Supplemental ranges: <140 mg/dL before meals <180 mg/dL all other times of the day Specimen Anatomical Collection Method Collection Time Receive d Time (Source) Location / / Volume Laterality Blood specimen 07/08/2017 6:04 AM 017 6:04 (specimen) EST AM EST Yuan Webber MD POINT OF CARE TEST ORDERABLE S Performing Organization Address City/State/Z[place] [address] (ABNORMAL) POCT Glucose (07/08/2017 5:31 AM EST) P athologist Signature POC Glucose 216 (H) 65 - 199 [facility] mg/dL [facility] Comment: Supplemental ranges: <140 mg/dL before meals <180 mg/dL all other times of the day Specimen Anatomical Collection Method Collection Time Receive d Time (Source) Location / / Volume Laterality Blood specimen 07/08/2017 5:31 AM 017 5:31 (specimen) EST AM EST Yuan Webber MD POINT OF CARE TEST ORDERABLE S Performing Organization Address City/[facility]/Z[place] [address] (ABNORMAL) POCT Glucose (07/08/2017 4:52 AM EST) P athologist Signature POC Glucose 257 (H) 65 - 199 [facility] mg/dL [facility] Comment: Supplemental ranges: <140 mg/dL before meals <180 mg/dL all other times of the day Specimen Anatomical Collection Method Collection Time Receive d Time (Source) Location / / Volume Laterality Blood specimen 07/08/2017 4:52 AM 017 4:52 (specimen) EST AM EST Daphne Shahid MD POINT OF CARE TEST ORDERABLE S Performing Organization Address City/State/Z[place] [address] (ABNORMAL) BLOOD GAS 2 ARTERIAL (07/08/2017 4:04 AM EST) Analysis Performed At Patho logist Time Signature pH Art 7.30 (L) 7.35 - [facility] 7.45 [facility] pCO2 Art 41 35 - 45 [facility] LABORATORY pO2 Art 83 (L) 85 - 104 [facility] LABORATORY HCO3 Art 19.6 (L) 20.0 - [facility] 26.0 [facility] mmol/L HOSPITAL LABORATORY BE Art -6.8 (L) -3.0 - 3.0 [facility] mmol/L [facility] Hgb Blood Gas 12.2 (L) 13.7 - [facility] 16.5 gm/dL [facility] O2HB Art 93.5 (L) 94.0 - [facility] 97.0 % [facility] COHB Art 0.4 % [facility] Comment: Nonsmokers: 0.5-1.5% COHB Smokers: Variable, but usually less than 10% Toxic: 20-30% COHB Lethal: Greater than 60% COHB METHB Art 0.8 <=1.5 % [facility] Na Whole Blood 138 135 - 145 mmol/L [facility] K Whole Blood 4.4 3.5 - 5.0 mmol/L [facility] Comment: Please note: Patients with WBC >100,000 may have falsely elevated Potassium levels. Contact the Clinical Chemistry L aboratory if there are any questions. ICa Whole Blood 1.05 (L) 1.15 - 1.33 mmol/L [facility] Comment: Note: ??Total bilirubin higher than 20 m g/dL may lead to falsely low ionized calcium. CL Whole Blood 107 98 - 107 mmol/L [facility] Gluc Whole Bld 274 (H) 65 - 199 mg/dL [facility] Comment: Diabetes: >=200 mg/dL plus symp toms. Lactate WB 4.4 (Critical) 0.5 - 2.2 mmol/L [facility] Comment: Noted by electrical/instrument technician. FIO2 Art 40 % [facility] PF Ratio Art 208 [facility]ORY Specimen Anatomical Collection Method Collection Time Receive d Time (Source) Location / / Volume Laterality Blood specimen 07/08/2017 4:04 AM 017 4:04 (specimen) EST AM EST Daphne Shahid MD CHEMISTRY ORDERABLES Performing Organization Address City/State/ZIP [place] [address] Scan, Peripheral Blood (07/08/2017 4:00 AM EST) P athologist Signature Plat Estimate Normal [facility] RBC Morphology Normal [facility] Specimen Anatomical Collection Method Collection Time Receive d Time (Source) Location / / Volume Laterality Blood specimen 07/08/2017 4:00 AM 017 4:09 (specimen) EST AM EST Resulting Agency Comment Spec In Lab Yuan Webber MD HEMATOLOGY ORDERABLES Performing Organization Address City/State/ZIP [place] [address] (ABNORMAL) Differential, Automated (07/08/2017 4:00 AM EST) Patholo gist Method Time Signature Neutrophils % 85.4 % [facility] Neutr Abs (ANC) 16.07 (H) 1.70 - [facility] 6.10 [facility] x10(3)/[facility] LABORATORY Lymphocytes % 3.5 % [facility] LABORATORY Lymphocytes Abs 0.6 (L) 0.9 - 3.2 [facility] x10(3)/[facility] LABORATORY Monocytes % 10.4 % [facility] LABORATORY Monocyte Abs 2.0 (H) 0.3 - 0.9 [facility] x10(3)/[facility] LABORATORY Eosinophils % 0.0 % [facility] LABORATORY Eosinophils Abs 0.0 0.0 - 0.4 [facility] x10(3)/[facility] LABORATORY Basophils % 0.1 % [facility] LABORATORY Basophils Abs 0.0 0.0 - 0.1 [facility] x10(3)/[facility] LABORATORY Immature Gran % 0.60 % [facility] LABORATORY Comment: Immature granulocytes(IG's)percentage an d absolute count will include metamyelocytes, myelocytes, and promyelo cytes. Blood smears from CBCs yielding IG's will be scanned manually for concor dance. If this scan disagrees with the automated IG or if promyelocytes are not ed, a manual differential will be performed. Melisa Gran Abs 0.12 (H) 0.00 - 0.04 x10(3)/[facility] LABORATORY Specimen Anatomical Collection Method Collection Time Receive d Time (Source) Location / / Volume Laterality Blood specimen 07/08/2017 4:00 AM 017 4:09 (specimen) EST AM EST Resulting Agency Comment Spec In Lab Yuan Webber MD HEMATOLOGY ORDERABLES Performing Organization Address City/State/ZIP [place] [address] (ABNORMAL) Hemogram (07/08/2017 4:00 AM EST) Analysis Performed At Patho logist Time Signature WBC 18.8 (H) 4.0 - 9.5 [facility] x10(3)/[facility] LABORATORY RBC 4.00 (L) 4.58 - [facility] x10(6)/[facility] LABORATORY Hemoglobin 11.9 (L) 13.7 - [facility] 16.5 gm/dL [facility] LABORATORY Hematocrit 35.9 (L) 40.5 - [facility] 48.5 % [facility] MCV 89.8 82.9 - [facility] LABORATORY MCH 29.8 27.5 - [facility] 32.1 pg [facility]ATORY MCHC 33.1 32.0 - [facility] gm/dL [facility] LAB[facility]ORY Platelets 232 145 - 357 [facility] x10(3)/[facility] LABORATORY RDWSD 47.6 (H) 36.0 - [facility] 45.[address] [facility] LABORATORY RDWCV 14.5 (H) 11.4 - [facility] 13.8 % [facility] LABORATORY MPV 9.5 7.6 - 12.9 [facility] LABORATORY nRBC % Auto 0.0 % [facility] LABORATORY nRBC Abs Auto 0.000 0.000 - [facility] 0.000 [facility] x10(3)/[facility] LABORATORY Specimen Anatomical Collection Method Collection Time Receive d Time (Source) Location / / Volume Laterality Blood specimen 07/08/2017 4:00 AM 017 4:09 (specimen) EST AM EST Resulting Agency Comment Spec In Lab Yuan Webber MD HEMATOLOGY ORDERABLES Performing Organization Address City/[facility]/[place]IP [place] [address] (ABNORMAL) Electrolytes panel (07/08/2017 4:00 AM EST) athologist Signature Sodium 139 135 - 145 [facility] mmol/L [facility] LABORATORY Potassium 4.7 3.5 - 5.0 [facility] mmol/L [facility] LABORATORY Comment: result rechecked-JLK Please note: ??Patients with WBC >100,00 0 may have falsely elevated Potassium levels. ??For accurate Potassium quantif ication in these patients send serum separator tube (gold top) for subsequent determinations. ??Contact the Clinical Chemistry Laboratory if there are any qu estions. Chloride 104 98 - 107 mmol/L [facility] LABORATORY CO2 21 (L) 22 - 31 mmol/L [facility] LABORATORY Anion Gap 14 5 - 15 mmol/L [facility] LABORATORY Specimen Anatomical Collection Method Collection Time Receive d Time (Source) Location / / Volume Laterality Blood specimen 07/08/2017 4:00 AM 017 4:10 (specimen) EST AM EST Resulting Agency Comment Spec In Lab Yuan Webber MD CHEMISTRY ORDERABLES Performing Organization Address City/[facility]/[place] [address] (ABNORMAL) Cardiac Enzymes (LEB/CGP) (07/08/2017 4:00 AM EST) athologist [facility] Troponin-T 1.88 (H) 0.00 - [facility] 0.00 ng/mL [facility] LABORATORY Comment: The 99th percentile for [...] additional sample may be indicated. Reference: Third [place] Definition of Myocardial Infarction. Journal of the [place] [employer] 2012;60:1581-98 CK, Total 413 (H) 0 - 200 unit/L [facility] LABORATORY Comment: result rechecked-AYDIN Specimen Anatomical Collection Method Collection Time Receive d Time (Source) Location / / Volume Laterality Blood specimen 07/08/2017 4:00 AM 017 4:09 (specimen) EST AM EST Resulting Agency Comment Spec In Lab Yuan Webber MD CHEMISTRY ORDERABLES Performing Organization Address City/State/ZIP [place] [address] (ABNORMAL) Glucose, fasting (07/08/2017 4:00 AM EST) athologist Signature Glucose 287 (H) 65 - 99 [facility] Fasting mg/dL [facility] LABORATORY Comment: ?Fasting* Glucose Interpretive C [...] of Diabetes Mellitus, Position Statement from the [place] [employer]. ??Diabete s Care, Volume 33, Supplement 1, Jul 2009 Specimen Anatomical Collection Method Collection Time Receive d Time (Source) Location / / Volume Laterality Blood specimen 07/08/2017 4:00 AM 017 4:09 (specimen) EST AM EST Resulting Agency Comment Spec In Lab Yuan Webber MD CHEMISTRY ORDERABLES Performing Organization Address City/State/[place] [address] (ABNORMAL) Creatinine (07/08/2017 4:00 AM EST) Analysis Performed At Patho logist Time Signature Creatinine 1.55 (H) 0.80 - [facility] 1.50 mg/dL [facility] LABORATORY Estimated GFR 44 (L) >=60 [facility] LABORATORY Comment: The reported eGFR should be multiplied b y 1.2 for patients. The MDRD is not an appropriate measure o f renal function for patients with body mass extremes or in patients with acute kidney failure. http://LoanTek/DHnkdep http://LoanTek/DHMCnkf Specimen Anatomical Collection Method Collection Time Receive d Time (Source) Location / / Volume Laterality Blood specimen 07/08/2017 4:00 AM 017 4:09 (specimen) EST AM EST Resulting Agency Comment Spec In Lab Yuan Webber MD CHEMISTRY ORDERABLES Performing Organization Address City/State/[place] [address] BUN (07/08/2017 4:00 AM EST) P athologist Signature BUN 16 10 - 20 [facility] mg/dL [facility] Specimen Anatomical Collection Method Collection Time Receive d Time (Source) Location / / Volume Laterality Blood specimen 07/08/2017 4:00 AM 017 4:09 (specimen) EST AM EST Resulting Agency Comment Spec In Lab Yuan Webber MD CHEMISTRY ORDERABLES Performing Organization Address City/[facility]/[place] [address] (ABNORMAL) POCT Glucose (07/08/2017 3:00 AM EST) P athologist Signature POC Glucose 273 (H) 65 - 199 [facility] mg/dL [facility] Comment: Supplemental ranges: <140 mg/dL before meals <180 mg/dL all other times of the day Specimen Anatomical Collection Method Collection Time Receive d Time (Source) Location / / Volume Laterality Blood specimen 07/08/2017 3:00 AM 017 3:00 (specimen) EST AM EST Daphne Shahid MD POINT OF CARE TEST ORDERABLE S Performing Organization Address City/State/[place] [address] (ABNORMAL) POCT Glucose (07/08/2017 1:57 AM EST) athologist Signature POC Glucose 288 (H) 65 - 199 [facility] mg/dL [facility] LABOR[facility] Comment: Supplemental ranges: <140 mg/dL before meals <180 mg/dL all other times of the day Specimen Anatomical Collection Method Collection Time Receive d Time (Source) Location / / Volume Laterality Blood specimen 07/08/2017 1:57 AM 017 1:57 (specimen) EST AM EST Daphne Shahid MD POINT OF CARE TEST ORDERABLE S Performing Organization Address City/State/[place] [address] (ABNORMAL) POCT Glucose (07/08/2017 1:01 AM EST) athologist Signature POC Glucose 315 (H) 65 - 199 [facility] mg/dL [facility] Comment: Supplemental ranges: <140 mg/dL before meals <180 mg/dL all other times of the day Specimen Anatomical Collection Method Collection Time Receive d Time (Source) Location / / Volume Laterality Blood specimen 07/08/2017 1:01 AM 017 1:01 (specimen) EST AM EST Daphne Shahid MD POINT OF CARE TEST ORDERABLE S Performing Organization Address City/State/[place] [address] (ABNORMAL) BLOOD GAS 2 ARTERIAL (07/08/2017 12:09 AM EST) athologist Signature pH Art 7.26 7.35 - [facility] (Critical) 7.45 [facility] LABORATORY Comment: Noted by electrical/instrument technician. pCO2 Art 41 35 - 45 mmHg [facility] LABORATORY pO2 Art 96 85 - 104 mmHg [facility] LABORATORY HCO3 Art 17.7 (L) 20.0 - 26.0 mmol/L [facility] LABORAT[facility] BE Art -9.4 (L) -3.0 - 3.0 mmol/L [facility] LABORATORY Hgb Blood Gas 12.4 (L) 13.7 - 16.5 gm/dL [facility] LABORATORY O2HB Art 94.7 94.0 - 97.0 % [facility] LABORATORY COHB Art 0.2 % [facility] LABORATORY Comment: Nonsmokers: 0.5-1.5% COHB Smokers: Variable, but usually less than 10% Toxic: 20-30% COHB Lethal: Greater than 60% COHB METHB Art 0.6 <=1.5 % [facility] LABORATORY Na Whole Blood 141 135 - 145 mmol/L [facility]OR[facility] K Whole Blood 3.5 3.5 - 5.0 mmol/L [facility] LABORATORY Comment: Please note: Patients with WBC >100,000 may have falsely elevated Potassium levels. Contact the Clinical Chemistry L aboratory if there are any questions. ICa Whole Blood 1.03 (L) 1.15 - 1.33 mmol/L [facility] LABORATORY Comment: Note: ??Total bilirubin higher than 20 m g/dL may lead to falsely low ionized calcium. CL Whole Blood 109 (H) 98 - 107 mmol/L [facility] LABORATORY Gluc Whole Bld 315 (H) 65 - 199 mg/dL [facility] LABORATORY Comment: Diabetes: >=200 mg/dL plus symp toms. Lactate WB 7.6 (Critical) 0.5 - 2.2 mmol/L [facility] LABORATORY Comment: Noted by electrical/instrument technician. FIO2 Art 40 % [facility] LABORATORY PF Ratio Art 240 [facility] LABORATORY Specimen Anatomical Collection Method Collection Time Receive d Time (Source) Location / / Volume Laterality Blood specimen Arterial Draw / 07/08/2017 12:09 2016 5:31 (specimen) Unknown AM EST AM EST Resulting Agency Comment Spec In Lab Samy Maldonado MD CHEMISTRY ORDERABLES Performing Organization Address City/[facility]/[place] [address] (ABNORMAL) POCT Glucose (07/07/2017 10:56 PM EST) athologist Signature POC Glucose 292 (H) 65 - 199 [facility] mg/dL [facility] Comment: Supplemental ranges: <140 mg/dL before meals <180 mg/dL all other times of the day Specimen Anatomical Collection Method Collection Time Receive d Time (Source) Location / / Volume Laterality Blood specimen 07/07/2017 10:56 7 (specimen) PM EST 10:56 PM EST Daphne Shahid MD POINT OF CARE TEST ORDERABLE S Performing Organization Address City/[facility]/[place] [address] (ABNORMAL) BLOOD GAS 2 ARTERIAL (07/07/2017 10:04 PM EST) athologist Signature pH Art 7.22 7.35 - [facility] (Critical) 7.45 [facility] LABOR[facility] Comment: Noted by electrical/instrument technician. pCO2 Art 42 35 - 45 mmHg [facility] LABORATORY pO2 Art 94 85 - 104 mmHg [facility] LABORATORY HCO3 Art 16.9 (L) 20.0 - 26.0 mmol/L [facility] LABORATORY BE Art -10.7 (L) -3.0 - 3.0 mmol/L [facility] LABORATORY Hgb Blood Gas 13.0 (L) 13.7 - 16.5 gm/dL [facility] LABORATORY O2HB Art 93.8 (L) 94.0 - 97.0 % [facility] LABORATORY COHB Art 0.7 % [facility] LABORATORY Comment: Nonsmokers: 0.5-1.5% COHB Smokers: Variable, but usually less than 10% Toxic: 20-30% COHB Lethal: Greater than 60% COHB METHB Art 0.7 <=1.5 % [facility] LABORATORY Na Whole Blood 140 135 - 145 mmol/L [facility] K Whole Blood 3.3 (L) 3.5 - 5.0 mmol/L [facility] LABORATORY Comment: Please note: Patients with WBC >100,000 may have falsely elevated Potassium levels. Contact the Clinical Chemistry L aboratory if there are any questions. ICa Whole Blood 1.07 (L) 1.15 - 1.33 mmol/L [facility] LABORATORY Comment: Note: ??Total bilirubin higher than 20 m g/dL may lead to falsely low ionized calcium. CL Whole Blood 107 98 - 107 mmol/L [facility] LABORATORY Gluc Whole Bld 304 (H) 65 - 199 mg/dL [facility] LABORAT[facility] Comment: Diabetes: >=200 mg/dL plus symp toms. Lactate WB 8.2 (Critical) 0.5 - 2.2 mmol/L [facility] LABORATORY Comment: Noted by electrical/instrument technician. FIO2 Art 40 % [facility] LABORATORY PF Ratio Art 235 [facility] LABORATORY Specimen Anatomical Collection Method Collection Time Receive d Time (Source) Location / / Volume Laterality Blood specimen 07/07/2017 10:04 7 (specimen) PM EST 10:04 PM EST Daphne Shahid MD CHEMISTRY ORDERABLES Performing Organization Address City/State/ZIP [place] [address] (ABNORMAL) Hemoglobin (07/07/2017 10:00 PM EST) P athologist Signature Hemoglobin 12.8 (L) 13.7 - [facility] 16.5 gm/dL [facility] LABOR[facility]ORY Specimen Anatomical Collection Method Collection Time Receive d Time (Source) Location / / Volume Laterality Blood specimen 07/07/2017 10:00 7 (specimen) PM EST 10:13 PM EST Resulting Agency Comment Spec In Lab Yuan Webber MD HEMATOLOGY ORDERABLES Performing Organization Address City/[facility]/Z[place] [address] (ABNORMAL) Potassium (07/07/2017 10:00 PM EST) athologist Signature Potassium 3.4 (L) 3.5 - 5.0 [facility] mmol/L [facility] Comment: Please note: ??Patients with [...] Webber MD CHEMISTRY ORDERABLES Performing Organization Address City/[facility]/Z[place] [address] (ABNORMAL) POCT Glucose (07/07/2017 8:49 PM EST) athologist [facility] POC Glucose 241 (H) 65 - 199 [facility] mg/dL [facility] Comment: Supplemental ranges: <140 mg/dL before meals <180 mg/dL all other times of the day Specimen Anatomical Collection Method Collection Time Receive d Time (Source) Location / / Volume Laterality Blood specimen 07/07/2017 8:49 PM 017 8:49 (specimen) EST PM EST Daphne Shahid MD POINT OF CARE TEST ORDERABLE S Performing Organization Address City/[facility]/ZIP Code Phon e Number [address] Prepare Albumin 5% in 250 mL (07/07/2017 8:03 PM EST) athologist Signature Dispensed? Yes [facility] LABORATORY Specimen Anatomical Collection Method Collection Time Receive d Time (Source) Location / / Volume Laterality Blood specimen No Charge / 07/07/2017 8:03 PM 017 8:04 (specimen) Unknown EST PM EST Resulting Agency Comment Spec In Lab Michael BROWN BLOOD BANK ORDERABLES Performing Organization Address City/State/ZIP [place] [address] EKG 12 Lead (07/07/2017 7:17 PM EST) Component Value Ref Range Test Analysis Performed Pathologis t Method Time At Signature Ventricular rate 75 BPM MUSE SYSTEM Atrial Rate 75 BPM MUSE SYSTEM P-R Interval 168 ms MUSE SYSTEM QRS Duration 104 ms MUSE SYSTEM Q-T Interval 462 ms MUSE SYSTEM QTC Calculated 515 ms MUSE SYSTEM (Bezet) Calculated P [place] 52 degrees MUSE SYSTEM Calculated R [place] -40 degrees MUSE SYSTEM Calculated T [place] 39 degrees MUSE SYSTEM INTERPRETATION Normal sinus [...] athologist Signature pH Art 7.21 7.35 - [facility] (Critical) 7.45 [facility] Comment: Noted by electrical/instrument technician. pCO2 Art 50 (H) 35 - 45 mmHg [facility]OR[facility]ORY pO2 Art 238 (H) 85 - 104 mmHg [facility] HCO3 Art 19.8 (L) 20.0 - 26.0 mmol/L [facility] BE Art -8.1 (L) -3.0 - 3.0 mmol/L [facility]OR[facility] Hgb Blood Gas 12.8 (L) 13.7 - 16.5 gm/dL [facility] O2HB Art 97.5 (H) 94.0 - 97.0 % [facility] COHB Art 0.5 % [facility] LABOR[facility]ORY Comment: Nonsmokers: 0.5-1.5% COHB Smokers: Variable, but usually less than 10% Toxic: 20-30% COHB Lethal: Greater than 60% COHB METHB Art 0.7 <=1.5 % [facility]OR[facility] Na Whole Blood 140 135 - 145 mmol/L [facility] K Whole Blood 3.0 (Critical) 3.5 - 5.0 mmol/L [facility] Comment: Noted by electrical/instrument technician. Please note: Patients with WBC >100,000 may have falsely elevated Potassium levels. Contact the Clinical Chemistry L aboratory if there are any questions. ICa Whole Blood 1.07 (L) 1.15 - 1.33 mmol/L [facility] Comment: Note: ??Total bilirubin higher than 20 m g/dL may lead to falsely low ionized calcium. CL Whole Blood 107 98 - 107 mmol/L [facility] Gluc Whole Bld 270 (H) 65 - 199 mg/dL [facility] Comment: Diabetes: >=200 mg/dL plus symp toms. Lactate WB 4.9 (Critical) 0.5 - 2.2 mmol/L [facility] Comment: Noted by electrical/instrument technician. FIO2 Art 100 % [facility] PF Ratio Art 238 [facility]OR[facility]ORY Specimen Anatomical Collection Method Collection Time Receive d Time (Source) Location / / Volume Laterality Blood specimen 07/07/2017 6:57 PM 017 6:57 (specimen) EST PM EST Daphne Shahid MD CHEMISTRY ORDERABLES Performing Organization Address City/State/ZIP [place] [address] (ABNORMAL) BLOOD GAS 2 ARTERIAL (07/07/2017 5:31 PM EST) P athologist Signature pH Art 7.29 7.35 - [facility] (Critical) 7.45 [facility] Comment: Noted by electrical/instrument technician. pCO2 Art 48 (H) 35 - 45 mmHg [facility] pO2 Art 137 (H) 85 - 104 mmHg [facility] HCO3 Art 22.4 20.0 - 26.0 mmol/L [facility] BE Art -4.3 (L) -3.0 - 3.0 mmol/L [facility] Hgb Blood Gas 10.0 (L) 13.7 - 16.5 gm/dL [facility] O2HB Art 97.3 (H) 94.0 - 97.0 % [facility] COHB Art 0.3 % [facility] Comment: Nonsmokers: 0.5-1.5% COHB Smokers: Variable, but usually less than 10% Toxic: 20-30% COHB Lethal: Greater than 60% COHB METHB Art 0.3 <=1.5 % [facility] Na Whole Blood 132 (L) 135 - 145 mmol/L [facility] K Whole Blood 4.0 3.5 - 5.0 mmol/L [facility] Comment: Please note: Patients with WBC >100,000 may have falsely elevated Potassium levels. Contact the Clinical Chemistry L aboratory if there are any questions. ICa Whole Blood 1.14 (L) 1.15 - 1.33 mmol/L [facility] Comment: Note: ??Total bilirubin higher than 20 m g/dL may lead to falsely low ionized calcium. CL Whole Blood 105 98 - 107 mmol/L [facility] Gluc Whole Bld 293 (H) 65 - 199 mg/dL [facility] Comment: Diabetes: >=200 mg/dL plus symp toms. Lactate WB 3.1 (H) 0.5 - 2.2 mmol/L [facility] Specimen Anatomical Collection Method Collection Time Receive d Time (Source) Location / / Volume Laterality Blood specimen 07/07/2017 5:31 PM 017 5:31 (specimen) EST PM EST Daphne Shahid MD CHEMISTRY ORDERABLES Performing Organization Address City/State/ZIP [place] [address] Fibrinogen (07/07/2017 5:30 PM EST) athologist Signature Fibrinogen 224 180 - 510 [facility] mg/dL [facility] Comment: Called by: JEET, Read [...] Perez MD HEMATOLOGY ORDERABLES Performing Organization Address City/[facility]/ZIP Code Phon e Number [address] APTT (07/07/2017 5:30 PM EST) athologist Signature PTT 30 25 - 35 sec [facility] Comment: The recommended therapeutic [...] Perez MD HEMATOLOGY ORDERABLES Performing Organization Address City/[facility]/ZIP [place] [address] (ABNORMAL) Prothrombin Time (07/07/2017 5:30 PM EST) athologist Signature PT 19.0 (H) 11.8 - 14.0 [facility] LABORATORY INR 1.6 (H) 0.9 - 1.1 [facility] LABORATORY Comment: An INR <2.0 [...] Organization Address City/State/ZIP [place] [address] (ABNORMAL) Hemogram (07/07/2017 5:30 PM EST) athologist Signature WBC 19.6 (H) 4.0 - 9.5 [facility] x10(3)/[facility] LABORATORY RBC 3.08 (L) 4.58 - [facility] 5.54 [facility] x10(6)/[facility] LABORATORY Hemoglobin 9.2 (L) 13.7 - [facility] 16.5 gm/dL [facility] Hematocrit 28.0 (L) 40.5 - [facility] 48.5 % [facility] Comment: This result has been called to MONICA WEINSTEIN LUISA by DONALD GROSSMAN on 07 07 2017 at 1759, and has been read back. MCV 90.9 82.9 - 93.1 fL [facility]ORATORY MCH 29.9 27.5 - 32.1 pg [facility]ATORY MCHC 32.9 32.0 - 35.7 gm/dL [facility] LABORATORY Platelets 155 145 - 357 x10(3)/[facility] LABORATORY RDWSD 46.5 (H) 36.0 - 45.0 [facility] LABORATORY RDWCV 14.1 (H) 11.4 - 13.8 % [facility] LABORATORY MPV 9.5 7.6 - 12.9 [facility] LABORATORY nRBC % Auto 0.0 % [facility] LABORATORY nRBC Abs Auto 0.000 0.000 - 0.000 x10(3)/[facility] LABORATORY Specimen Anatomical Collection Method Collection Time Receive d Time (Source) Location / / Volume Laterality Blood specimen 07/07/2017 5:30 PM 017 5:34 (specimen) EST PM EST Resulting Agency Comment Spec In Lab Yifan Perez MD HEMATOLOGY ORDERABLES Performing Organization Address [facility] Phon e Number [address] Prepare Platelets, Apheresis (07/07/2017 5:00 PM EST) P athologist Signature Dispensed? Yes [facility] LABORATORY Specimen Anatomical Collection Method Collection Time Receive d Time (Source) Location / / Volume Laterality Blood specimen 07/07/2017 5:00 PM 017 4:58 (specimen) EST PM EST Daphne Shahid MD BLOOD BANK ORDERABLES Performing Organization Address City/[facility] Phon e Number [address] Platelet count (07/07/2017 4:55 PM EST) P athologist Signature Platelets 177 145 - 357 [facility] x10(3)/[facility] LABORATORY Plat Immature 1.5 0.0 - 7.4 [facility] % % [facility] Comment: Limitation of the Immature Platelet Frac tion (IPF)-May be less reliable when the platelet count is less than [id number]/u L due to statistical imprecision. The IPF [...] in a decreased state of production. References: [employer] The Clinical Value of the Immature Platelet Fraction (IPF) in Cell Recovery Document Number [id number] 12/2010 [employer] The Role of the Imm ature [...] Organization Address City/State/[place] [address] (ABNORMAL) Hemoglobin and Hematocrit, blood (07/07/2017 4:55 PM EST) P athologist Signature Hemoglobin 9.1 (L) 13.7 - 16.5 [facility] gm/dL [facility] Comment: This result has been called to MALKA MORAN by DONALD GROSSMAN on 07 07 2017 at 1734, and has been read back. Hematocrit 26.6 (L) 40.5 - 48.5 % [facility] Comment: This result has been [...] Organization Address City/State/[place] [address] (ABNORMAL) BLOOD GAS 2 ARTERIAL (07/07/2017 4:38 PM EST) Analysis Performed At Patho logist Time Signature pH Art 7.37 7.35 - [facility] 7.45 [facility] pCO2 Art 44 35 - 45 [facility] mmHg [facility] pO2 Art 322 (H) 85 - 104 [facility] LABORATORY HCO3 Art 24.9 20.0 - [facility] 26.0 [facility] mmol/L [facility] BE Art -0.4 -3.0 - 3.0 [facility] mmol/L [facility] Hgb Blood Gas 10.1 (L) 13.7 - [facility] 16.5 gm/dL [facility] O2HB Art 98.7 (H) 94.0 - [facility] 97.0 % [facility] COHB Art 0.1 % [facility] Comment: Nonsmokers: 0.5-1.5% COHB Smokers: Variable, but usually less than 10% Toxic: 20-30% COHB Lethal: Greater than 60% COHB METHB Art 0.3 <=1.5 % [facility] Na Whole Blood 130 (L) 135 - 145 mmol/L [facility] K Whole Blood 5.7 (H) 3.5 - 5.0 mmol/L [facility] Comment: Please note: Patients with WBC >100,000 may have falsely elevated Potassium levels. Contact the Clinical Chemistry L aboratory if there are any questions. ICa Whole Blood 0.89 (Critical) 1.15 - 1.33 mmol/L [facility] Comment: Noted by electrical/instrument technician. Note: ??Total bilirubin higher than 20 m g/dL may lead to falsely low ionized calcium. CL Whole Blood 101 98 - 107 mmol/L [facility] Gluc Whole Bld 295 (H) 65 - 199 mg/dL [facility] Comment: Diabetes: >=200 mg/dL plus symp toms. Lactate WB 1.7 0.5 - 2.2 mmol/L [facility] Specimen Anatomical Collection Method Collection Time Receive d Time (Source) Location / / Volume Laterality Blood specimen 07/07/2017 4:38 PM 017 4:38 (specimen) EST PM EST Daphne Shahid MD CHEMISTRY ORDERABLES Performing Organization Address City/State/ZIP [place] [address] (ABNORMAL) BLOOD GAS 2 VENOUS (07/07/2017 4:06 PM EST) Analysis Performed At Patho logist Time Signature pH Cody 7.31 (L) 7.32 - [facility] 7.42 [facility] pCO2 Cody 47 41 - 51 [facility] LABORATORY pO2 Cody 53 (H) 25 - 40 [facility] LABORATORY HCO3 Cody 22.7 mmol/L [facility] BE Cody -3.7 mmol/L [facility] Hgb Blood Gas 10.2 (L) 13.7 - [facility] 16.5 gm/dL [facility] O2HB Cody 81.0 % [facility] COHB Cody 1.0 % [facility] Comment: Nonsmokers: 0.5-1.5% COHB Smokers: Variable, but usually less than 10% Toxic: 20-30% COHB Lethal: Greater than 60% COHB METHB Cody 0.3 <=1.5 % [facility] Na Whole Blood 132 (L) 135 - 145 mmol/L [facility] K Whole Blood 5.3 (H) 3.5 - 5.0 mmol/L [facility] Comment: Please note: Patients with WBC >100,000 may have falsely elevated Potassium levels. Contact the Clinical Chemistry L aboratory if there are any questions. ICa Whole Blood 0.90 (Critical) 1.15 - 1.33 mmol/L [facility] Comment: Noted by electrical/instrument technician. Note: ??Total bilirubin higher than 20 m g/dL may lead to falsely low ionized calcium. CL Whole Blood 100 98 - 107 mmol/L [facility] Gluc Whole Bld 231 (H) 65 - 199 mg/dL [facility] Comment: Diabetes: >=200 mg/dL plus symp toms Lactate WB 1.1 0.5 - 2.2 mmol/L [facility] BGas Source Venous [facility] Specimen Anatomical Collection Method Collection Time Receive d Time (Source) Location / / Volume Laterality Blood specimen 07/07/2017 4:06 PM 017 4:06 (specimen) EST PM EST Daphne Shahid MD CHEMISTRY ORDERABLES Performing Organization Address City/State/ZIP [place] [address] (ABNORMAL) BLOOD GAS 2 ARTERIAL (07/07/2017 4:05 PM EST) Analysis Performed At Patho logist Time Signature pH Art 7.36 7.35 - [facility] 7.45 [facility] pCO2 Art 40 35 - 45 [facility] mmHg [facility] pO2 Art 282 (H) 85 - 104 [facility] LABORATORY HCO3 Art 22.1 20.0 - [facility] 26.0 [facility] mmol/L [facility] BE Art -3.4 (L) -3.0 - 3.0 [facility] mmol/L [facility] Hgb Blood Gas 10.2 (L) 13.7 - [facility] 16.5 gm/dL [facility] O2HB Art 98.4 (H) 94.0 - [facility] 97.0 % [facility] COHB Art 0.3 % [facility] Comment: Nonsmokers: 0.5-1.5% COHB Smokers: Variable, but usually less than 10% Toxic: 20-30% COHB Lethal: Greater than 60% COHB METHB Art 0.3 <=1.5 % [facility] Na Whole Blood 131 (L) 135 - 145 mmol/L [facility] K Whole Blood 5.4 (H) 3.5 - 5.0 mmol/L [facility] Comment: Please note: Patients with WBC >100,000 may have falsely elevated Potassium levels. Contact the Clinical Chemistry L aboratory if there are any questions. ICa Whole Blood 0.86 (Critical) 1.15 - 1.33 mmol/L [facility] Comment: Noted by electrical/instrument technician. Note: ??Total bilirubin higher than 20 m g/dL may lead to falsely low ionized calcium. CL Whole Blood 101 98 - 107 mmol/L [facility] Gluc Whole Bld 260 (H) 65 - 199 mg/dL [facility] Comment: Diabetes: >=200 mg/dL plus symp toms. Lactate WB 1.4 0.5 - 2.2 mmol/L [facility] Specimen Anatomical Collection Method Collection Time Receive d Time (Source) Location / / Volume Laterality Blood specimen 07/07/2017 4:05 PM 017 4:05 (specimen) EST PM EST Daphne Shahid MD CHEMISTRY ORDERABLES Performing Organization Address City/State/ZIP [place] [address] (ABNORMAL) BLOOD GAS 2 ARTERIAL (07/07/2017 2:29 PM EST) Analysis Performed At Patho logist Time Signature pH Art 7.43 7.35 - [facility] 7.45 [facility] pCO2 Art 36 35 - 45 [facility] mmHg [facility] pO2 Art 221 (H) 85 - 104 [facility] LABORATORY HCO3 Art 23.2 20.0 - [facility] 26.0 [facility] mmol/L [facility] BE Art -1.2 -3.0 - 3.0 [facility] mmol/L [facility] Hgb Blood Gas 13.9 13.7 - [facility] 16.5 gm/dL [facility] O2HB Art 97.8 (H) 94.0 - [facility] 97.0 % [facility] COHB Art 1.1 % [facility] Comment: Nonsmokers: 0.5-1.5% COHB Smokers: Variable, but usually less than 10% Toxic: 20-30% COHB Lethal: Greater than 60% COHB METHB Art 0.3 <=1.5 % [facility] Na Whole Blood 139 135 - 145 mmol/L [facility] K Whole Blood 4.0 3.5 - 5.0 mmol/L [facility] Comment: Please note: Patients with WBC >100,000 may have falsely elevated Potassium levels. Contact the Clinical Chemistry L aboratory if there are any questions. ICa Whole Blood 1.11 (L) 1.15 - 1.33 mmol/L [facility] Comment: Note: ??Total bilirubin higher than 20 m g/dL may lead to falsely low ionized calcium. CL Whole Blood 104 98 - 107 mmol/L [facility] Gluc Whole Bld 184 65 - 199 mg/dL [facility] Comment: Diabetes: >=200 mg/dL plus symp toms. Lactate WB 1.5 0.5 - 2.2 mmol/L [facility] Specimen Anatomical Collection Method Collection Time Receive d Time (Source) Location / / Volume Laterality Blood specimen 07/07/2017 2:29 PM 017 2:29 (specimen) EST PM EST Daphne Shahid MD CHEMISTRY ORDERABLES Performing Organization Address City/[facility]/ZIP Code Phon e Number [address] Prepare Coag Factors (Non-Hemophilia) (07/07/2017 1:25 PM EST) P athologist Signature Dispensed? Yes [facility] Specimen Anatomical Collection Method Collection Time Receive d Time (Source) Location / / Volume Laterality Blood specimen 07/07/2017 1:25 PM 017 1:21 (specimen) EST PM EST Daphne Shahid MD BLOOD BANK ORDERABLES Performing Organization Address City/[facility]/ZIP [place] [address] Prepare RBC (07/07/2017 1:10 PM EST) P athologist Signature Dispensed? Yes [facility] Specimen Anatomical Collection Method Collection Time Receive d Time (Source) Location / / Volume Laterality Blood specimen 07/07/2017 1:10 PM 017 1:05 (specimen) EST PM EST Daphne Shahid MD BLOOD BANK ORDERABLES Performing Organization Address City/[facility]/ZIP [place] [address] POCT Glucose (07/07/2017 11:56 AM EST) P athologist Signature POC Glucose 188 65 - 199 [facility] mg/dL [facility] Comment: Supplemental ranges: <140 mg/dL before meals <180 mg/dL all other times of the day Specimen Anatomical Collection Method Collection Time Receive d Time (Source) Location / / Volume Laterality Blood specimen 07/07/2017 11:56 7 (specimen) AM EST 11:56 AM EST Daphne Shahid MD POINT OF CARE TEST ORDERABLE S Performing Organization Address City/[facility]/ZIP Code Phon e Number [address] POCT Glucose (07/07/2017 11:05 AM EST) P athologist Signature POC Glucose 168 65 - 199 [facility] mg/dL [facility] Comment: Supplemental ranges: <140 mg/dL before meals <180 mg/dL all other times of the day Specimen Anatomical Collection Method Collection Time Receive d Time (Source) Location / / Volume Laterality Blood specimen 07/07/2017 11:05 7 (specimen) AM EST 11:05 AM EST Daphne Shahid MD POINT OF CARE TEST ORDERABLE S Performing Organization Address City/[facility]/ZIP Code Phon e Number [address] POCT Glucose (07/07/2017 10:02 AM EST) P athologist Signature POC Glucose 191 65 - 199 [facility] mg/dL [facility] Comment: Supplemental ranges: <140 mg/dL before meals <180 mg/dL all other times of the day Specimen Anatomical Collection Method Collection Time Receive d Time (Source) Location / / Volume Laterality Blood specimen 07/07/2017 10:02 7 (specimen) AM EST 10:02 AM EST Daphne Shahid MD POINT OF CARE TEST ORDERABLE S Performing Organization Address City/[facility]/ZIP Code Phon e Number [address] POCT Glucose (07/07/2017 7:53 AM EST) P athologist Signature POC Glucose 178 65 - 199 [facility] Comment: Supplemental ranges: <140 mg/dL before meals <180 mg/dL all other times of the day Specimen Anatomical Collection Method Collection Time Receive d Time (Source) Location / / Volume Laterality Blood specimen 07/07/2017 7:53 AM 017 7:53 (specimen) EST AM EST Daphne Shahid MD POINT OF CARE TEST ORDERABLE S Performing Organization Address City/State/ZIP Code Phon e Number [address] POCT Glucose (07/07/2017 7:03 AM EST) athologist Signature POC Glucose 188 65 - 199 [facility] Comment: Supplemental ranges: <140 mg/dL before meals <180 mg/dL all other times of the day Specimen Anatomical Collection Method Collection Time Receive d Time (Source) Location / / Volume Laterality Blood specimen 07/07/2017 7:03 AM 017 7:03 (specimen) EST AM EST Daphne Shahid MD POINT OF CARE TEST ORDERABLE S Performing Organization Address City/[facility]/ZIP [place] [address] (ABNORMAL) POCT Glucose (07/07/2017 6:17 AM EST) athologist Signature POC Glucose 207 (H) 65 - 199 [facility] Comment: Supplemental ranges: <140 mg/dL before meals <180 mg/dL all other times of the day Specimen Anatomical Collection Method Collection Time Receive d Time (Source) Location / / Volume Laterality Blood specimen 07/07/2017 6:17 AM 017 6:17 (specimen) EST AM EST Daphne Shahid MD POINT OF CARE TEST ORDERABLE S Performing Organization Address City/[facility]/ZIP Code Phon e Number [address] Differential, Automated (07/07/2017 5:15 AM EST) athologist Signature Neutrophils % 69.7 % [facility] Neutr Abs (ANC) 5.32 1.70 - [facility] 6.10 [facility] x10(3)/[facility] LABORATORY Lymphocytes % 16.3 % [facility] Lymphocytes Abs 1.2 0.9 - 3.2 [facility] x10(3)/[facility] LABORATORY Monocytes % 10.5 % [facility] Monocyte Abs 0.8 0.3 - 0.9 [facility] x10(3)/[facility] LABORATORY Eosinophils % 2.5 % [facility] Eosinophils Abs 0.2 0.0 - 0.4 [facility] x10(3)/[facility] LABORATORY Basophils % 0.7 % [facility] Basophils Abs 0.0 0.0 - 0.1 [facility] x10(3)/[facility] LABORATORY Immature Gran % 0.30 % [facility] Comment: Immature granulocytes(IG's)percentage an d absolute count will include metamyelocytes, myelocytes, and promyelo cytes. Blood smears from CBCs yielding IG's will be scanned manually for concor dance. If this scan disagrees with the automated IG or if promyelocytes are not ed, a manual differential will be performed. Melisa Gran Abs 0.02 0.00 - 0.04 x10(3)/[facility] LABORATORY Specimen Anatomical Collection Method Collection Time Receive d Time (Source) Location / / Volume Laterality Blood specimen 07/07/2017 5:15 AM 017 5:34 (specimen) EST AM EST Resulting Agency Comment Spec In Lab Daphne Shahid MD HEMATOLOGY ORDERABLES Performing Organization Address City/State/ZIP [place] [address] (ABNORMAL) Hemogram (07/07/2017 5:15 AM EST) Analysis Performed At Patho logist Time Signature WBC 7.6 4.0 - 9.5 [facility] x10(3)/[facility] LABORATORY RBC 4.82 4.58 - [facility] 5.54 [facility] x10(6)/[facility] LABORATORY Hemoglobin 14.4 13.7 - [facility] 16.5 gm/dL [facility] Hematocrit 42.1 40.5 - [facility] 48.5 % [facility] MCV 87.3 82.9 - [facility] 93.1 fL [facility] MCH 29.9 27.5 - [facility] 32.1 pg [facility] MCHC 34.2 32.0 - [facility] 35.7 gm/dL [facility] Platelets 188 145 - 357 [facility] R[facility] x10(3)/[facility] LABORATORY RDWSD 45.1 (H) 36.0 - [place] [facility] [address] [facility] LABORATORY RDWCV 14.3 (H) 11.4 - [facility] 13.8 % [facility] MPV 9.4 7.6 - 12.9 [facility] LABORATORY nRBC % Auto 0.0 % [facility] nRBC Abs Auto 0.000 0.000 - [facility] 0.000 [facility] x10(3)/[facility] LABORATORY Specimen Anatomical Collection Method Collection Time Receive d Time (Source) Location / / Volume Laterality Blood specimen 07/07/2017 5:15 AM 017 5:34 (specimen) EST AM EST Resulting Agency Comment Spec In Lab Daphne Shahid MD HEMATOLOGY ORDERABLES Performing Organization Address City/[facility]/ZIP Code Phon e Number [address] (ABNORMAL) APTT (07/07/2017 5:15 AM EST) P athologist Signature PTT 69 (H) 25 - 35 sec [facility] Comment: The recommended therapeutic [...] Shahid MD HEMATOLOGY ORDERABLES Performing Organization Address City/[facility]/ZIP Code Phon e Number [address] Magnesium (07/07/2017 5:15 AM EST) P athologist Signature Magnesium 0.94 0.69 - 1.07 [facility] mmol/L [facility] Specimen Anatomical Collection Method Collection Time Receive d Time (Source) Location / / Volume Laterality Blood specimen 07/07/2017 5:15 AM 017 5:34 (specimen) EST AM EST Resulting Agency Comment Spec In Lab Daphne Shahid MD CHEMISTRY ORDERABLES Performing Organization Address City/State/ZIP [place] [address] (ABNORMAL) Basic Metabolic Panel (non-fasting) (07/07/2017 5:15 AM EST) P athologist Signature Glucose Lvl 203 (H) 65 - 199 [facility] mg/dL [facility] Comment: Diabetes: >=200 mg/dL plus symp toms BUN 15 10 - 20 mg/dL [facility] Creatinine 1.09 0.80 - 1.50 mg/dL [facility] Sodium 142 135 - 145 mmol/L [facility] Potassium 4.4 3.5 - 5.0 mmol/L [facility] Comment: Please note: ??Patients with WBC >100,00 0 may have falsely elevated Potassium levels. ??For accurate Potassium quantif ication in these patients send serum separator tube (gold top) for subsequent determinations. ??Contact the Clinical Chemistry Laboratory if there are any qu estions. Chloride 102 98 - 107 mmol/L [facility] CO2 26 22 - 31 mmol/L [facility] Anion Gap 14 5 - 15 mmol/L [facility] Calcium 8.6 8.5 - 10.5 mg/dL [facility] Estimated GFR >60 >=60 [facility] Comment: The reported eGFR should be multiplied b y 1.2 for patients. The MDRD is not an appropriate measure o f renal function for patients with body mass extremes or in patients with acute kidney failure. http://[employer]/DHnkdep http://[employer]/DHMCnkf Specimen Anatomical Collection Method Collection Time Receive d Time (Source) Location / / Volume Laterality Blood specimen 07/07/2017 5:15 AM 017 5:34 (specimen) EST AM EST Resulting Agency Comment Spec In Lab Daphne Shahid MD CHEMISTRY ORDERABLES Performing Organization Address City/[facility]/ZIP Code Phon e Number [address] (ABNORMAL) Cardiac Enzymes (LEB/CGP) (07/07/2017 5:15 AM EST) athologist Signature Troponin-T 2.07 (H) 0.00 - [facility] 0.00 ng/mL [facility] Comment: The 99th percentile for [...] additional sample may be indicated. Reference: Third [place] Definition of Myocardial Infarction. Journal of the [place] [employer] 2012;60:1581-98 CK, Total 88 0 - 200 unit/L [facility] Specimen Anatomical Collection Method Collection Time Receive d Time (Source) Location / / Volume Laterality Blood specimen 07/07/2017 5:15 AM 017 5:34 (specimen) EST AM EST Resulting Agency Comment Spec In Lab Daphne Shahid MD CHEMISTRY ORDERABLES Performing Organization Address City/State/ZIP Code Phon e Number [address] POCT Glucose (07/07/2017 5:01 AM EST) athologist Signature POC Glucose 182 65 - 199 [facility] mg/dL [facility] Comment: Supplemental ranges: <140 mg/dL before meals <180 mg/dL all other times of the day Specimen Anatomical Collection Method Collection Time Receive d Time (Source) Location / / Volume Laterality Blood specimen 07/07/2017 5:01 AM 017 5:01 (specimen) EST AM EST Daphne Shahid MD POINT OF CARE TEST ORDERABLE S Performing Organization Address City/State/ZIP Code Phon e Number [address] POCT Glucose (07/07/2017 4:08 AM EST) athologist Signature POC Glucose 199 65 - 199 [facility] Comment: Supplemental ranges: <140 mg/dL before meals <180 mg/dL all other times of the day Specimen Anatomical Collection Method Collection Time Receive d Time (Source) Location / / Volume Laterality Blood specimen 07/07/2017 4:08 AM 017 4:08 (specimen) EST AM EST Daphne Shahid MD POINT OF CARE TEST ORDERABLE S Performing Organization Address City/State/Z[place] [address] POCT Glucose (07/07/2017 3:03 AM EST) athologist Signature POC Glucose 188 65 - 199 [facility] mg/dL [facility] Comment: Supplemental ranges: <140 mg/dL before meals <180 mg/dL all other times of the day Specimen Anatomical Collection Method Collection Time Receive d Time (Source) Location / / Volume Laterality Blood specimen 07/07/2017 3:03 AM 017 3:03 (specimen) EST AM EST Daphne Shahid MD POINT OF CARE TEST ORDERABLE S Performing Organization Address City/State/[place] [address] (ABNORMAL) POCT Glucose (07/07/2017 2:08 AM EST) athologist Signature POC Glucose 200 (H) 65 - 199 [facility] Comment: Supplemental ranges: <140 mg/dL before meals <180 mg/dL all other times of the day Specimen Anatomical Collection Method Collection Time Receive d Time (Source) Location / / Volume Laterality Blood specimen 07/07/2017 2:08 AM 017 2:08 (specimen) EST AM EST Daphne Shahid MD POINT OF CARE TEST ORDERABLE S Performing Organization Address City/State/[place] [address] (ABNORMAL) POCT Glucose (07/07/2017 1:31 AM EST) athologist Signature POC Glucose 209 (H) 65 - 199 [facility] Comment: Supplemental ranges: <140 mg/dL before meals <180 mg/dL all other times of the day Specimen Anatomical Collection Method Collection Time Receive d Time (Source) Location / / Volume Laterality Blood specimen 07/07/2017 1:31 AM 017 1:31 (specimen) EST AM EST Daphne Shahid MD POINT OF CARE TEST ORDERABLE S Performing Organization Address City/[facility]/Z[place] [address] XR Chest PA or [...] Signature POC Glucose 161 65 - 199 [facility] mg/dL [facility] Comment: Supplemental ranges: <140 mg/dL before meals <180 mg/dL all other times of the day Specimen Anatomical Collection Method Collection Time Receive d Time (Source) Location / / Volume Laterality Blood specimen 07/07/2017 12: 7 (specimen) AM EST 12:07 AM EST Daphne Shahid MD POINT OF CARE TEST ORDERABLE S Performing Organization Address City/State/ZIP [place] [address] (ABNORMAL) APTT (07/07/2017 12:00 AM EST) athologist Signature PTT 103 (H) 25 - 35 sec [facility] Comment: The recommended therapeutic [...] Address City/State/ZIP Code Phon e Number [place] POCT Glucose (07/06/2017 9:55 PM EST) athologist Signature POC Glucose 109 65 - 199 [facility] mg/dL [facility] Comment: Supplemental ranges: <140 mg/dL before meals <180 mg/dL all other times of the day Specimen Anatomical Collection Method Collection Time Receive d Time (Source) Location / / Volume Laterality Blood specimen 07/06/2017 9:55 PM 017 9:55 (specimen) EST PM EST Daphne Shahid MD POINT OF CARE TEST ORDERABLE S Performing Organization Address City/State/ZIP Code Phon e Number [address] POCT Glucose (07/06/2017 9:04 PM EST) athologist Signature POC Glucose 120 65 - 199 [facility] Comment: Supplemental ranges: <140 mg/dL before meals <180 mg/dL all other times of the day Specimen Anatomical Collection Method Collection Time Receive d Time (Source) Location / / Volume Laterality Blood specimen 07/06/2017 9:04 PM 017 9:04 (specimen) EST PM EST Daphne Shahid MD POINT OF CARE TEST ORDERABLE S Performing Organization Address City/State/ZIP Code Phon e Number [address] POCT Glucose (07/06/2017 7:45 PM EST) athologist Signature POC Glucose 158 65 - 199 [facility]dL [facility] Comment: Supplemental ranges: <140 mg/dL before meals <180 mg/dL all other times of the day Specimen Anatomical Collection Method Collection Time Receive d Time (Source) Location / / Volume Laterality Blood specimen 07/06/2017 7:45 PM 017 7:45 (specimen) EST PM EST Daphne Shahid MD POINT OF CARE TEST ORDERABLE S Performing Organization Address City/State/[place] [address] Potassium (07/06/2017 7:40 PM EST) athologist Signature Potassium 3.9 3.5 - 5.0 [facility] mmol/L [facility] Comment: Please note: ??Patients with [...] Organization Address City/State/ZIP Code Phon e Number [place] [id number] (ABNORMAL) Cardiac Enzymes (LEB/CGP) (07/06/2017 7:40 PM EST) athologist Signature Troponin-T 2.27 (H) 0.00 - [facility] 0.00 ng/mL [facility] Comment: The 99th percentile for [...] additional sample may be indicated. Reference: [place] Definition of Myocardial Infarction. Journal of the [place] [employer] 2012;60:1581-98 CK, Total 93 0 - 200 unit/L [facility] LABORATORY Specimen Anatomical Collection Method Collection Time Receive d Time (Source) Location / / Volume Laterality Blood specimen 07/06/2017 7:40 PM 017 7:52 (specimen) EST PM EST Resulting Agency Comment Spec In Lab Daphne Shahid MD CHEMISTRY ORDERABLES Performing Organization Address City/[facility]/[place] [address] (ABNORMAL) POCT Glucose (07/06/2017 7:13 PM EST) P athologist Signature POC Glucose 200 (H) 65 - 199 [facility] mg/dL [facility] Comment: Supplemental ranges: <140 mg/dL before meals <180 mg/dL all other times of the day Specimen Anatomical Collection Method Collection Time Receive d Time (Source) Location / / Volume Laterality Blood specimen 07/06/2017 7:13 PM 017 7:13 (specimen) EST PM EST Daphne Shahid MD POINT OF CARE TEST ORDERABLE S Performing Organization Address [facility] [place] [address] (ABNORMAL) APTT (07/06/2017 6:15 PM EST) P athologist Signature PTT 94 (H) 25 - 35 sec [facility] Comment: The recommended therapeutic [...] Shahid MD HEMATOLOGY ORDERABLES Performing Organization Address City/[facility]/[place] [address] (ABNORMAL) POCT Glucose (07/06/2017 6:03 PM EST) athologist Signature POC Glucose 236 (H) 65 - 199 [facility] mg/dL [facility] Comment: Supplemental ranges: <140 mg/dL before meals <180 mg/dL all other times of the day Specimen Anatomical Collection Method Collection Time Receive d Time (Source) Location / / Volume Laterality Blood specimen 07/06/2017 6:03 PM 017 6:03 (specimen) EST PM EST Daphne Shahid MD POINT OF CARE TEST ORDERABLE S Performing Organization Address City/State/ZIP Code Phon e Number [address] (ABNORMAL) POCT Glucose (07/06/2017 5:01 PM EST) athologist Signature POC Glucose 235 (H) 65 - 199 [facility] mg/dL [facility] Comment: Supplemental ranges: <140 mg/dL before meals <180 mg/dL all other times of the day Specimen Anatomical Collection Method Collection Time Receive d Time (Source) Location / / Volume Laterality Blood specimen 07/06/2017 5:01 PM 017 5:01 (specimen) EST PM EST Daphne Shahid MD POINT OF CARE TEST ORDERABLE S Performing Organization Address City/State/[place] [address] (ABNORMAL) POCT Glucose (07/06/2017 4:06 PM EST) athologist Signature POC Glucose 202 (H) 65 - 199 [facility] mg[facility]dL [facility] Comment: Supplemental ranges: <140 mg/dL before meals <180 mg/dL all other times of the day Specimen Anatomical Collection Method Collection Time Receive d Time (Source) Location / / Volume Laterality Blood specimen 07/06/2017 4:06 PM 017 4:06 (specimen) EST PM EST Daphne Shahid MD POINT OF CARE TEST ORDERABLE S Performing Organization Address City/State/ZIP Code Phon e Number [address] POCT Glucose (07/06/2017 2:59 PM EST) athologist Signature POC Glucose 178 65 - 199 [facility] mg[facility]dL [facility] Comment: Supplemental ranges: <140 mg/dL before meals <180 mg/dL all other times of the day Specimen Anatomical Collection Method Collection Time Receive d Time (Source) Location / / Volume Laterality Blood specimen 07/06/2017 2:59 PM 017 2:59 (specimen) EST PM EST Daphne Shahid MD POINT OF CARE TEST ORDERABLE S Performing Organization Address City/State/ZIP Code Phon e Number [address] (ABNORMAL) Cardiac Enzymes (LEB/CGP) (07/06/2017 2:10 PM EST) athologist Signature Troponin-T 2.34 (H) 0.00 - [facility] 0.00 ng/mL [facility] Comment: The 99th percentile for [...] additional sample may be indicated. Reference: [place] Definition of Myocardial Infarction. Journal of the [place] [employer] 2012;60:1581-98 CK, Total 101 0 - 200 unit/L [facility] Specimen Anatomical Collection Method Collection Time Receive d Time (Source) Location / / Volume Laterality Blood specimen 07/06/2017 2:10 PM 017 2:26 (specimen) EST PM EST Resulting Agency Comment Spec In Lab Daphne Shahid MD CHEMISTRY ORDERABLES Performing Organization Address City/[facility]/ZIP Code Phon e Number [address] POCT Glucose (07/06/2017 2:08 PM EST) athologist Signature POC Glucose 192 65 - 199 [facility]dL [facility] Comment: Supplemental ranges: <140 mg/dL before meals <180 mg/dL all other times of the day Specimen Anatomical Collection Method Collection Time Receive d Time (Source) Location / / Volume Laterality Blood specimen 07/06/2017 2:08 PM 017 2:08 (specimen) EST PM EST Daphne Shahid MD POINT OF CARE TEST ORDERABLE S Performing Organization Address City/[facility]/ZIP Code Phon e Number [address] POCT Glucose (07/06/2017 1:04 PM EST) athologist Signature POC Glucose 162 65 - 199 [facility] mg[facility]dL [facility] Comment: Supplemental ranges: <140 mg/dL before meals <180 mg/dL all other times of the day Specimen Anatomical Collection Method Collection Time Receive d Time (Source) Location / / Volume Laterality Blood specimen 07/06/2017 1:04 PM 017 1:04 (specimen) EST PM EST Daphne Shahid MD POINT OF CARE TEST ORDERABLE S Performing Organization Address City/State/ZIP Code Phon e Number [address] POCT Glucose (07/06/2017 12:05 PM EST) athologist Signature POC Glucose 196 65 - 199 [facility] mg[facility]dL [facility] Comment: Supplemental ranges: <140 mg/dL before meals <180 mg/dL all other times of the day Specimen Anatomical Collection Method Collection Time Receive d Time (Source) Location / / Volume Laterality Blood specimen 07/06/2017 12:05 7 (specimen) PM EST 12:05 PM EST Daphne Shahid MD POINT OF CARE TEST ORDERABLE S Performing Organization Address [facility]/ZIP [place] [address] EKG 12 Lead (07/06/2017 12:00 PM EST) Component Value Ref Range Test Analysis Performed Pathologis t Method Time At Signature Ventricular rate 91 BPM MUSE SYSTEM Atrial Rate 91 BPM MUSE SYSTEM P-R Interval 140 ms MUSE SYSTEM QRS Duration 94 ms MUSE SYSTEM Q-T Interval 394 ms MUSE SYSTEM QTC Calculated 484 ms MUSE SYSTEM (Bezet) Calculated P [place] 36 degrees MUSE SYSTEM Calculated R [place] -19 degrees MUSE SYSTEM Calculated T [place] 104 degrees MUSE SYSTEM INTERPRETATION Normal sinus rhythm MUSE SYSTEM 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) ST & T wave abnormality, consider lateral ischemia Abnormal ECG When compared with ECG of 05-JUL-2017 20:39, No significant change was found Confirmed by MD Luci, Taurus Braun ([id number]) on 07/06/2017 5:07:33 PM Specimen Anatomical Collection Method Collection Time Receive d Time (Source) Location / / Volume Laterality 07/06/2017 12:00 07/06/2017 5:07 PM EST PM EST Daphne Shahid MD ECG ORDERABLES Performing Organization Address [facility]/ZIP Code Phon e Number MUSE SYSTEM ABORH Recheck Status (07/06/2017 12:00 PM EST) [facility] Method Time Signature ABORH Type Completed [facility] LABORATORY Specimen Anatomical Collection Method Collection Time Receive d Time (Source) Location / / Volume Laterality Blood specimen 07/06/2017 12:00 7 (specimen) PM EST 12:24 PM EST Resulting Agency Comment Spec In Lab Daphne Shahid MD BLOOD BANK ORDERABLES Performing Organization Address City/[facility]/ZIP [place] [address] Antibody screen (07/06/2017 12:00 PM EST) [facility] Method Time Signature Ab Screen Negative [facility] LABORATORY Expires at 07/09/2017 [facility] [id number] on: [facility] Specimen Anatomical Collection Method Collection Time Receive d Time (Source) Location / / Volume Laterality Blood specimen 07/06/2017 12:00 7 (specimen) PM EST 12:24 PM EST Resulting Agency Comment Spec In Lab Daphne Shahid MD BLOOD BANK ORDERABLES Performing Organization Address City/[facility]/ZIP Code Phon e Number [address] ABO/Rh Typing (07/06/2017 12:00 PM EST) P athologist Signature ABORh Type O Pos [facility] Specimen Anatomical Collection Method Collection Time Receive d Time (Source) Location / / Volume Laterality Blood specimen 07/06/2017 12:00 7 (specimen) PM EST 12:24 PM EST Resulting Agency Comment Spec In Lab Daphne Shahid MD BLOOD BANK ORDERABLES Performing Organization Address City/[facility] Phon e Number [address] Prothrombin Time (07/06/2017 11:24 AM EST) P athologist Signature PT 13.3 11.8 - 14.0 [facility] LABORATORY INR 1.0 0.9 - 1.1 [facility] Comment: An INR <2.0 [...] Shahid MD HEMATOLOGY ORDERABLES Performing Organization Address City/[facility]/[place] [address] (ABNORMAL) APTT (07/06/2017 11:24 AM EST) athologist Signature PTT 52 (H) 25 - 35 sec [facility] Comment: The recommended therapeutic [...] Shahid MD HEMATOLOGY ORDERABLES Performing Organization Address [facility]/ZIP Code Phon e Number [address] POCT Glucose (07/06/2017 11:02 AM EST) athologist Signature POC Glucose 187 65 - 199 [facility] Comment: Supplemental ranges: <140 mg/dL before meals <180 mg/dL all other times of the day Specimen Anatomical Collection Method Collection Time Receive d Time (Source) Location / / Volume Laterality Blood specimen 07/06/2017 11:02 7 (specimen) AM EST 11:02 AM EST Daphne Shahid MD POINT OF CARE TEST ORDERABLE S Performing Organization Address City/State/[place] [address] POCT Glucose (07/06/2017 10:18 AM EST) athologist Signature POC Glucose 193 65 - 199 [facility] mg/dL [facility] Comment: Supplemental ranges: <140 mg/dL before meals <180 mg/dL all other times of the day Specimen Anatomical Collection Method Collection Time Receive d Time (Source) Location / / Volume Laterality Blood specimen 07/06/2017 10:18 7 (specimen) AM EST 10:18 AM EST Daphne Shahid MD POINT OF CARE TEST ORDERABLE S Performing Organization Address City/State/[place] [address] POCT Glucose (07/06/2017 9:25 AM EST) athologist Signature POC Glucose 182 65 - 199 [facility] mg/dL [facility] Comment: Supplemental ranges: <140 mg/dL before meals <180 mg/dL all other times of the day Specimen Anatomical Collection Method Collection Time Receive d Time (Source) Location / / Volume Laterality Blood specimen 07/06/2017 9:25 AM 017 9:25 (specimen) EST AM EST Daphne Shahid MD POINT OF CARE TEST ORDERABLE S Performing Organization Address City/State/[place] [address] (ABNORMAL) Cardiac Enzymes (LEB/CGP) (07/06/2017 8:10 AM EST) athologist Signature Troponin-T 2.26 (H) 0.00 - [facility] 0.00 ng/mL [facility] Comment: The 99th percentile for [...] additional sample may be indicated. Reference: [place] Definition of Myocardial Infarction. Journal of the [place] [employer] 2012;60:1581-98 CK, Total 124 0 - 200 unit/L [facility] Specimen Anatomical Collection Method Collection Time Receive d Time (Source) Location / / Volume Laterality Blood specimen 07/06/2017 8:10 AM 017 8:23 (specimen) EST AM EST Resulting Agency Comment Spec In Lab Daphne Shahid MD CHEMISTRY ORDERABLES Performing Organization Address City/[facility]/[place] [address] Magnesium (07/06/2017 8:10 AM EST) P athologist Signature Magnesium 0.84 0.69 - 1.07 [facility] mmol/L [facility] Specimen Anatomical Collection Method Collection Time Receive d Time (Source) Location / / Volume Laterality Blood specimen 07/06/2017 8:10 AM 017 8:21 (specimen) EST AM EST Resulting Agency Comment Spec In Lab Daphne Shahid MD CHEMISTRY ORDERABLES Performing Organization Address City/[facility]/[place] [address] (ABNORMAL) Basic Metabolic Panel (non-fasting) (07/06/2017 8:10 AM EST) athologist Signature Glucose Lvl 199 65 - 199 [facility] mg/dL [facility] Comment: Diabetes: >=200 mg/dL plus symp toms BUN 16 10 - 20 mg/dL [facility] Creatinine 1.04 0.80 - 1.50 mg/dL [facility] Sodium 141 135 - 145 mmol/L [facility] Potassium 4.5 3.5 - 5.0 mmol/L [facility] Comment: Please note: ??Patients with WBC >100,00 0 may have falsely elevated Potassium levels. ??For accurate Potassium quantif ication in these patients send serum separator tube (gold top) for subsequent determinations. ??Contact the Clinical Chemistry Laboratory if there are any qu estions. Chloride 101 98 - 107 mmol/L [facility] CO2 27 22 - 31 mmol/L [facility] Anion Gap 13 5 - 15 mmol/L [facility] Calcium 8.1 (L) 8.5 - 10.5 mg/dL [facility] Estimated GFR >60 >=60 [facility] Comment: The reported eGFR should be multiplied b y 1.2 for patients. The MDRD is not an appropriate measure o f renal function for patients with body mass extremes or in patients with acute kidney failure. http://LoanTek/DHnkdep http://LoanTek/DHMCnkf Specimen Anatomical Collection Method Collection Time Receive d Time (Source) Location / / Volume Laterality Blood specimen 07/06/2017 8:10 AM 017 8:21 (specimen) EST AM EST Resulting Agency Comment Spec In Lab Daphne Shahid MD CHEMISTRY ORDERABLES Performing Organization Address City/[facility]/ZIP Code Phon e Number [address] POCT Glucose (07/06/2017 7:34 AM EST) P athologist Signature POC Glucose 198 65 - 199 [facility] mg/dL [facility] Comment: Supplemental ranges: <140 mg/dL before meals <180 mg/dL all other times of the day Specimen Anatomical Collection Method Collection Time Receive d Time (Source) Location / / Volume Laterality Blood specimen 07/06/2017 7:34 AM 017 7:34 (specimen) EST AM EST Daphne Shahid MD POINT OF CARE TEST ORDERABLE S Performing Organization Address City/[facility]/ZIP Code Phon e Number [address] POCT Glucose (07/06/2017 7:03 AM EST) P athologist Signature POC Glucose 181 65 - 199 [facility] mg/dL [facility] Comment: Supplemental ranges: <140 mg/dL before meals <180 mg/dL all other times of the day Specimen Anatomical Collection Method Collection Time Receive d Time (Source) Location / / Volume Laterality Blood specimen 07/06/2017 7:03 AM 12/12/2 017 7:03 (specimen) EST AM EST Daphne Shahid MD POINT OF CARE TEST ORDERABLE S Performing Organization Address City/State/ZIP Code Phon e Number [place] [phone] XR Chest PA or [...] Signature POC Glucose 172 65 - 199 [facility] mg/dL [facility] Comment: Supplemental ranges: <140 mg/dL before meals <180 mg/dL all other times of the day Specimen Anatomical Collection Method Collection Time Receive d Time (Source) Location / / Volume Laterality Blood specimen 07/06/2017 6:21 AM 017 6:21 (specimen) EST AM EST Daphne Shahid MD POINT OF CARE TEST ORDERABLE S Performing Organization Address City/State/ZIP Code Phon e Number [address] POCT Glucose (07/06/2017 5:08 AM EST) athologist Signature POC Glucose 154 65 - 199 [facility] mg/dL [facility] Comment: Supplemental ranges: <140 mg/dL before meals <180 mg/dL all other times of the day Specimen Anatomical Collection Method Collection Time Receive d Time (Source) Location / / Volume Laterality Blood specimen 07/06/2017 5:08 AM 017 5:08 (specimen) EST AM EST Daphne Shahid MD POINT OF CARE TEST ORDERABLE S Performing Organization Address City/State/ZIP Code Phon e Number [address] POCT Glucose (07/06/2017 4:05 AM EST) athologist Signature POC Glucose 142 65 - 199 [facility] mg/dL [facility] Comment: Supplemental ranges: <140 mg/dL before meals <180 mg/dL all other times of the day Specimen Anatomical Collection Method Collection Time Receive d Time (Source) Location / / Volume Laterality Blood specimen 07/06/2017 4:05 AM 017 4:05 (specimen) EST AM EST Daphne Shahid MD POINT OF CARE TEST ORDERABLE S Performing Organization Address City/State/Z[place] [address] POCT Glucose (07/06/2017 3:00 AM EST) [facility] Glucose 116 65 - 199 [facility] mg/dL [facility] Comment: Supplemental ranges: <140 mg/dL before meals <180 mg/dL all other times of the day Specimen Anatomical Collection Method Collection Time Receive d Time (Source) Location / / Volume Laterality Blood specimen 07/06/2017 3:00 AM 017 3:00 (specimen) EST AM EST Daphne Shahid MD POINT OF CARE TEST ORDERABLE S Performing Organization Address City/[facility]/ZIP [facility] Phon e Number [address] Potassium (07/06/2017 2:20 AM EST) [facility] Potassium 3.9 3.5 - 5.0 [facility] mmol/L [facility] Comment: Please note: ??Patients with [...] Shahid MD CHEMISTRY ORDERABLES Performing Organization Address City/[facility]/ZIP [facility] Phon e Number [address] Differential, Automated (07/06/2017 2:20 AM EST) [facility] Neutrophils % 72.9 % [facility] Neutr Abs (ANC) 5.53 1.70 - [facility] 6.10 [facility] x10(3)/[facility] LABORATORY Lymphocytes % 16.4 % [facility] Lymphocytes Abs 1.2 0.9 - 3.2 [facility] x10(3)/[facility] LABORATORY Monocytes % 9.4 % [facility] Monocyte Abs 0.7 0.3 - 0.9 [facility] x10(3)/[facility] LABORATORY Eosinophils % 0.5 % [facility] Eosinophils Abs 0.0 0.0 - 0.4 [facility] x10(3)/[facility] LABORATORY Basophils % 0.4 % [facility] Basophils Abs 0.0 0.0 - 0.1 [facility] x10(3)/[facility] LABORATORY Immature Gran % 0.40 % [facility] Comment: Immature granulocytes(IG's)percentage an d absolute count will include metamyelocytes, myelocytes, and promyelo cytes. Blood smears from CBCs yielding IG's will be scanned manually for concor dance. If this scan disagrees with the automated IG or if promyelocytes are not ed, a manual differential will be performed. Melisa Gran Abs 0.03 0.00 - 0.04 x10(3)/[facility] MAR Y [facility] LABORATORY Specimen Anatomical Collection Method Collection Time Receive d Time (Source) Location / / Volume Laterality Blood specimen 07/06/2017 2:20 AM 017 2:33 (specimen) EST AM EST Resulting Agency Comment Spec In Lab Daphne Shahid MD HEMATOLOGY ORDERABLES Performing Organization Address City/State/ZIP [place] [address] (ABNORMAL) Hemogram (07/06/2017 2:20 AM EST) Analysis Performed At Patho logist Time Signature WBC 7.6 4.0 - 9.5 [facility] x10(3)/[facility] LABORATORY RBC 4.52 (L) 4.58 - [facility] 5.54 [facility] x10(6)/[facility] LABORATORY Hemoglobin 13.4 (L) 13.7 - [facility] 16.5 gm/dL [facility] Hematocrit 39.7 (L) 40.5 - [facility] 48.5 % [facility] MCV 87.8 82.9 - [facility] 93.1 fL [facility] MCH 29.6 27.5 - [facility] MCHC 33.8 32.0 - [facility] 35[facility] gm/dL [facility] Platelets 189 145 - 357 [facility] x10(3[facility] LABORATORY RDWSD 45.6 (H) 36.0 - [place] [facility] [address] [facility] LABORATORY RDWCV 14.3 (H) 11.4 - [facility] RYAN 13.8 % [facility] MPV 9.1 7.6 - 12.9 [facility] LABORATORY nRBC % Auto 0.0 % [facility] nRBC Abs Auto 0.000 0.000 - [place] 0.000 [facility] x10(3)/[facility] LABORATORY Specimen Anatomical Collection Method Collection Time Receive d Time (Source) Location / / Volume Laterality Blood specimen 07/06/2017 2:20 AM 017 2:33 (specimen) EST AM EST Resulting Agency Comment Spec In Lab Daphne Shahid MD HEMATOLOGY ORDERABLES Performing Organization Address City/[facility]/[place] [address] (ABNORMAL) APTT (07/06/2017 2:20 AM EST) P athologist Signature PTT 52 (H) 25 - 35 sec [facility] Comment: The recommended therapeutic [...] Shahid MD HEMATOLOGY ORDERABLES Performing Organization Address City/[facility]/ZIP Code Phon e Number [address] POCT Glucose (07/06/2017 2:20 AM EST) P athologist Signature POC Glucose 115 65 - 199 [facility] mg/dL [facility] Comment: Supplemental ranges: <140 mg/dL before meals <180 mg/dL all other times of the day Specimen Anatomical Collection Method Collection Time Receive d Time (Source) Location / / Volume Laterality Blood specimen 07/06/2017 2:20 AM 017 2:20 (specimen) EST AM EST Daphne Shahid MD POINT OF CARE TEST ORDERABLE S Performing Organization Address City/State/ZIP [place] [address] (ABNORMAL) Cardiac Enzymes (LEB/CGP) (07/06/2017 2:20 AM EST) athologist Signature Troponin-T 2.13 (H) 0.00 - [facility] 0.00 ng/mL [facility] Comment: The 99th percentile for [...] Samples for cTnT testing should be obtai perdo luis serially upon first assessment and again 3 to 6 hours later. If the clinica l suspicion is high and previous samples have been negative an additional sample may be indicated. Reference: [place] Definition of Myocardial Infarction. Journal of the [place] [employer] 2012;60:1581-98 CK, Total 129 0 - 200 unit/L [facility] Specimen Anatomical Collection Method Collection Time Receive d Time (Source) Location / / Volume Laterality Blood specimen 07/06/2017 2:20 AM 017 2:33 (specimen) EST AM EST Resulting Agency Comment Spec In Lab Daphne Shahid MD CHEMISTRY ORDERABLES Performing Organization Address City/State/ZIP Code Phon e Number [place] [id number] (ABNORMAL) Hemoglobin A1c (07/06/2017 2:20 AM EST) Analysis Performed At Patho logist Time Signature Hemoglobin A1C 6.8 (H) 4.3 - 5.6 [facility] Comment: Reference Range: 4.3 - [...] Mellitus, Diabetes Care 2013; 36: Suppl. 1, S67-05 Est Avg Gluc See note mg/dL [facility] Comment: Estimated Average Glucose [...] into estimated average glucose values. ??Diabetes Care 2008:31(8):9676-2174. Specimen Anatomical Collection Method Collection Time Receive d Time (Source) Location / / Volume Laterality Blood specimen 07/06/2017 2:20 AM 017 2:34 (specimen) EST AM EST Resulting Agency Comment Spec In Lab Daphne Shahid MD CHEMISTRY ORDERABLES Performing Organization Address City/State/ZIP [place] [address] (ABNORMAL) Lipid Panel (07/06/2017 2:20 AM EST) [facility] gist Method Time Signature Chol, Total 150 <=239 [facility] mg/dL [facility] Triglycerides 129 <=199 [facility] mg/dL [facility]ORY HDL 32 (L) >=40 [facility] mg/dL [facility] LDL Cholesterol 92 <=190 [facility] mg/dL [facility] Chol/HDL Ratio 4.7 ratio [facility] Lipid See Note KATALINA Interpretation [facility] Comment: Lipid management should be guided by a p atient? s ASCVD risk, goals and preferences. ACC/AHA Guidelines recommend high intens ity statin if clinical ASCVD or LDL greater than or equal to 190 mg/dL. http://SocialVolt.Verifico/WWA-HAM-Dsybkwwrg Adults aged 40-75 with LDL 70-189 mg/dL should have their 10 year ASCVD risk estimated with the ACC/AHA ASCVD risk es timator http://tools.acc.org/IPZMQ-Daxi-Nhsldflt r/ Statin should be discussed if risk [...] Shahid MD CHEMISTRY ORDERABLES Performing Organization Address City/[facility]/ZIP Code Phon e Number [address] POCT Glucose (07/06/2017 1:09 AM EST) P athologist Signature POC Glucose 121 65 - 199 KATALINA RYAN mg/dL [facility] Comment: Supplemental ranges: <140 mg/dL before meals <180 mg/dL all other times of the day Specimen Anatomical Collection Method Collection Time Receive d Time (Source) Location / / Volume Laterality Blood specimen 07/06/2017 1:09 AM 017 1:09 (specimen) EST AM EST Daphne Shahid MD POINT OF CARE TEST ORDERABLE S Performing Organization Address City/[facility]/ZIP [place] [address] POCT Glucose (07/06/2017 12:06 AM EST) athologist Signature POC Glucose 147 65 - 199 [facility] RYAN mg/dL [facility] Comment: Supplemental ranges: <140 mg/dL before meals <180 mg/dL all other times of the day Specimen Anatomical Collection Method Collection Time Receive d Time (Source) Location / / Volume Laterality Blood specimen 07/06/2017 12:06 7 (specimen) AM EST 12:06 AM EST Daphne Shahid MD POINT OF CARE TEST ORDERABLE S Performing Organization Address City/[facility]/[place] [address] (ABNORMAL) POCT Glucose (07/05/2017 10:56 PM EST) P athologist Signature POC Glucose 200 (H) 65 - 199 [facility] RYAN mg/dL [facility] Comment: Supplemental ranges: <140 mg/dL before meals <180 mg/dL all other times of the day Specimen Anatomical Collection Method Collection Time Receive d Time (Source) Location / / Volume Laterality Blood specimen 07/05/2017 10:56 7 (specimen) PM EST 10:56 PM EST Daphne Shahid MD POINT OF CARE TEST ORDERABLE S Performing Organization Address City/[facility]/[place]IP [place] [address] (ABNORMAL) POCT Glucose (07/05/2017 10:05 PM EST) P athologist Signature POC Glucose 225 (H) 65 - 199 [facility]dL [facility] Comment: Supplemental ranges: <140 mg/dL before meals <180 mg/dL all other times of the day Specimen Anatomical Collection Method Collection Time Receive d Time (Source) Location / / Volume Laterality Blood specimen 07/05/2017 10:05 7 (specimen) PM EST 10:05 PM EST Daphne Shahid MD POINT OF CARE TEST ORDERABLE S Performing Organization Address City/[facility]/[place]IP [place] [address] (ABNORMAL) POCT Glucose (07/05/2017 9:02 PM EST) P athologist Signature POC Glucose 301 (H) 65 - 199 [facility] mg/dL [facility] Comment: Supplemental ranges: <140 mg/dL before meals <180 mg/dL all other times of the day Specimen Anatomical Collection Method Collection Time Receive d Time (Source) Location / / Volume Laterality Blood specimen 07/05/2017 9:02 PM 017 9:02 (specimen) EST PM EST Daphne Shahid MD POINT OF CARE TEST ORDERABLE S Performing Organization Address City/State/Z[place] [address] XR Chest PA or [...] 474 ms MUSE SYSTEM (Bezet) Calculated P [place] 50 degrees MUSE SYSTEM Calculated R [place] -28 degrees MUSE SYSTEM Calculated T [place] 90 degrees MUSE SYSTEM INTERPRETATION Sinus tachycardia [...] (ABNORMAL) Differential, Automated (07/05/2017 8:20 PM EST) [facility] Method Time Signature Neutrophils % 88.4 % [facility] Neutr Abs (ANC) 9.08 (H) 1.70 - [facility] 6.10 [facility] x10(3)/[facility] L LABORATORY Lymphocytes % 7.0 % [facility] Lymphocytes Abs 0.7 (L) 0.9 - 3.2 [facility] x10(3)/[facility] LABORATORY Monocytes % 3.7 % [facility] Monocyte Abs 0.4 0.3 - 0.9 [facility] x10(3)/[facility] LABORATORY Eosinophils % 0.1 % [facility] Eosinophils Abs 0.0 0.0 - 0.4 [facility] x10(3)/[facility] LABORATORY Basophils % 0.2 % [facility] Basophils Abs 0.0 0.0 - 0.1 [facility] x10(3)/[facility] LABORATORY Immature Gran % 0.60 % [facility] Comment: Immature granulocytes(IG's)percentage an d absolute count will include metamyelocytes, myelocytes, and promyelo cytes. Blood smears from CBCs yielding IG's will be scanned manually for concor dance. If this scan disagrees with the automated IG or if promyelocytes are not ed, a manual differential will be performed. Melisa Gran Abs 0.06 (H) 0.00 - 0.04 x10(3)/[facility] LABORATORY Specimen Anatomical Collection Method Collection Time Receive d Time (Source) Location / / Volume Laterality Blood specimen 07/05/2017 8:20 PM 017 8:27 (specimen) EST PM EST Resulting Agency Comment Spec In Lab Daphne Shahid MD HEMATOLOGY ORDERABLES Performing Organization Address City/State/ZIP [place] [address] (ABNORMAL) Hemogram (07/05/2017 8:20 PM EST) Analysis Performed At Patho logist Time Signature WBC 10.3 (H) 4.0 - 9.5 [facility] x10(3)/[facility] LABORATORY RBC 4.64 4.58 - [place] RYAN 5.54 [facility] x10(6)/[facility] LABORATORY Hemoglobin 14.1 13.7 - [facility] 16.5 gm/dL [facility] Hematocrit 40.8 40.5 - [facility] 48.5 % [facility] MCV 87.9 82.9 - [facility] [address] [facility] LABORATORY MCH 30.4 27.5 - [facility] 32.1 pg [facility] MCHC 34.6 32.0 - [facility] Platelets 204 145 - 357 [facility] x10(3)/[facility] LABORATORY RDWSD 46.1 (H) 36.0 - [facility] 45.[address] [facility] LABORATORY RDWCV 14.5 (H) 11.4 - [facility] 13.8 % [facility] MPV 9.7 7.6 - 12.9 [facility] LABORATORY nRBC % Auto 0.0 % [facility] nRBC Abs Auto 0.000 0.000 - [facility] 0.000 [facility] x10(3)/[facility] LABORATORY Specimen Anatomical Collection Method Collection Time Receive d Time (Source) Location / / Volume Laterality Blood specimen 07/05/2017 8:20 PM 017 8:27 (specimen) EST PM EST Resulting Agency Comment Spec In Lab Daphne Shahid MD HEMATOLOGY ORDERABLES Performing Organization Address City/State/ZIP [place] [address] APTT (07/05/2017 8:20 PM EST) P athologist Signature PTT 32 25 - 35 sec [facility] Comment: The recommended therapeutic [...] Organization Address City/State/ZIP [place] [address] (ABNORMAL) Cardiac Enzymes (LEB/CGP) (07/05/2017 8:20 PM EST) P athologist Signature Troponin-T 2.11 (H) 0.00 - [facility] 0.00 ng/mL [facility] Comment: The 99th percentile for [...] additional sample may be indicated. Reference: [place] Definition of Myocardial Infarction. Journal of the [place] College of Cardiology 2012;60:1581-98 CK, Total 149 0 - 200 unit/L [facility] Specimen Anatomical Collection Method Collection Time Receive d Time (Source) Location / / Volume Laterality Blood specimen 07/05/2017 8:20 PM 017 8:27 (specimen) EST PM EST Resulting Agency Comment Spec In Lab Daphne Shahid MD CHEMISTRY ORDERABLES Performing Organization Address City/[facility]/ZIP Code Phon e Number [address] (ABNORMAL) Magnesium (07/05/2017 8:20 PM EST) P athologist Signature Magnesium 0.68 (L) 0.69 - 1.07 [facility] mmol/L [facility] Specimen Anatomical Collection Method Collection Time Receive d Time (Source) Location / / Volume Laterality Blood specimen 07/05/2017 8:20 PM 017 8:27 (specimen) EST PM EST Resulting Agency Comment Spec In Lab Daphne Shahid MD CHEMISTRY ORDERABLES Performing Organization Address City/[facility] [place] [address] (ABNORMAL) Basic Metabolic Panel (non-fasting) (07/05/2017 8:20 PM EST) athologist Signature Glucose Lvl 321 (H) 65 - 199 [facility] mg/dL [facility] Comment: Diabetes: >=200 mg/dL plus symp toms BUN 20 10 - 20 mg/dL [facility] Creatinine 1.12 0.80 - 1.50 mg/dL [facility] Sodium 139 135 - 145 mmol/L [facility]ORY Potassium 3.8 3.5 - 5.0 mmol/L [facility] Comment: Please note: ??Patients with WBC >100,00 0 may have falsely elevated Potassium levels. ??For accurate Potassium quantif ication in these patients send serum separator tube (gold top) for subsequent determinations. ??Contact the Clinical Chemistry Laboratory if there are any qu estions. Chloride 98 98 - 107 mmol/L [facility] CO2 27 22 - 31 mmol/L [facility] Anion Gap 14 5 - 15 mmol/L [facility] Calcium 8.1 (L) 8.5 - 10.5 mg/dL [facility] LABORATORY Estimated GFR >60 >=60 [facility] Comment: The reported eGFR should be multiplied b y 1.2 for patients. The MDRD is not an appropriate measure o f renal function for patients with body mass extremes or in patients with acute kidney failure. http://LoanTek/DHnkdep http://LoanTek/DHMCnkf Specimen Anatomical Collection Method Collection Time Receive d Time (Source) Location / / Volume Laterality Blood specimen 07/05/2017 8:20 PM 017 8:27 (specimen) EST PM EST Resulting Agency Comment Spec In Lab Daphne Shahid MD CHEMISTRY ORDERABLES Performing Organization Address City/State/ZIP Code Phon e Number [address] (ABNORMAL) POCT Glucose (07/05/2017 7:32 PM EST) P athologist Signature POC Glucose 296 (H) 65 - 199 [facility] mg/dL [facility] Comment: Supplemental ranges: <140 mg/dL before meals <180 mg/dL all other times of the day Specimen Anatomical Collection Method Collection Time Receive d Time (Source) Location / / Volume Laterality Blood specimen 07/05/2017 7:32 PM 017 7:32 (specimen) EST PM EST Daphne Shahid MD POINT OF CARE TEST ORDERABLE S Performing Organization Address City/State/ZIP [place] [address] CARDIAC CATHETERIZATION (07/05/2017 6:47 PM EST) Specimen (Source) Anatomical Location Collection Method / Collectio n Time Received Time / Laterality Volume Narrative CARDIOMAC SYSTEM - 07/05/2017 7:27 PM ES T ?[facility] ? Cardiac Cathete rization/Intervention Report ? Patient Name: Natalya, Gregory ? Procedure Date: 07/05/2017 ? A #: [id number] ? Primary Physician: Clarisa, Jet T ? Case #: [id number] ? File Name: [id number] ? Catheterization Order Number: [id number] ? [facility] ? Final Report [place], [place] ? Patient Name: ? Gregory Natalya ?ID#: ?[id number] ? : ?1945 ? Procedure Date: ? July 05 ?Case #: ? [id number] ? Room: ? 6 ? Case Physician: [...] presented with: non -STEMI (w/i 7 days). [place] ?[employer] angina c lass was IV. [...] site angio graphy and IABP insertion in lab engineer. ? Jet Mckenna M.D. ? Electronically Signed by: Jet bunch M.D. ? Report Finalized: 07/05/2017 ??19:23 ? Report Last Ammended: 10/26/2017 ??10:29 ? Procedure Note Jet Mckenna MD - 10/26/2017Formatt ing of this note might be different from the original. [facility] Cardiac Catheterization/Intervention Re port Patient Name: Gregory Hoang Procedure Date: 07/05/2017 A #: [id number] Primary Physician: Jet Mckenna Case #: [id number] File Name: [id number] Catheterization Order Number: [id number] [facility] Final Report [place], [place] Patient Name: Gregory Hoang ID#: [id number] : 1945 Procedure Date: July 05, [...] presented with: non-STEMI ( w/i 7 days). [place] [employer] angina class was IV. No [...] site angiograph y and IABP insertion in lab engineer. Jet Mckenna M.D. Electronically Signed by: Jet [...] Mccollum ? (Age): 1945(72y) Med Rec#: ? [id number] ?Sex: ?M ? Site Loc: ? [facility] ?Ht / Wt: ??173(cm)/86(kg) Pt. Loc: ?CCU ? BSA: ?2 Study Date: ?? 07/05/2017 ?Pt. Type: Inpatient Tape: ? Referring: Daphne Shahid ([id number]) Referring: MANDA ALCANTAR Reading: Blade Preston ([id number]) Powder Expert: Dayami Paula BA, RDCS Diagnosis: *ICD-10-PCS Non-ST [...] E-wave Vmax ?0.8 ?m/sec ? MV deceleration [id number] ?msec ? MV A-wave Vmax ?0.8 ?m/sec [...] ? Mid-Inferior ?Akinetic ? Mid-Inferoseptal ?Hypokinetic ? [place]-Septal ? Akinetic ? [place]-Anterior ? Hypokinetic ? [place]-Lateral ?Hypokinetic ? [place]-Inferior ? Akinetic ? [place]-Tip ?Akinetic ? This report has been electronically sign ed by: _ Blade Preston MD ? 07/06/2017 08 :53:15 Images reviewed and interpretation verif ied [facility] Cardiac Ultrasound Laboratory Procedure Note Blade Preston MD - 07/06/2017Formatt ing of this note might be different from the original. Procedure: Transthoracic Echocardiogram Patient: NATALYA MCBRIDE(Age): [birth year]72y) Med Rec#: [id number] Sex: M Site Loc: [facility] Ht / Wt: 173(cm)/86(kg) Pt. Loc: CCU BSA: 2 Study Date: 07/05/2017 Pt. Type: Inpatie nt Tape: Referring: Daphne Shahid ([id number]) Referring: MANDA ALCANTAR Reading: Blade Preston ([id number]) Powder Expert: Dayami Paula BA, [facility] Diagnosis: *ICD-10-PCS Non-ST elevation (NSTEMI) m yocardial [...] MV E-wave Vmax 0.8 m/sec MV deceleration wkum268 msec MV A-wave Vmax 0.8 m/sec MV [...] Hypokinetic Mid-Posterolateral Hypokinetic Mid-Inferior Akinetic Mid-Inferoseptal Hypokinetic [place]-Septal Akinetic [place]-Anterior Hypokinetic [place]-Lateral Hypokinetic [place]-Inferior Akinetic [place]-Tip Akinetic This report has been electronically sign ed by: _ Blade Preston MD 07/06/2017 08:53:15 [facility] Daphne Shahid MD ECHO ORDERABLES Performing Organization Address City/State/ZIP Code Phon e Number [facility] Differential, Automated (07/05/2017 4:55 PM EST) P athologist Signature Neutrophils % 77.0 % [facility] Neutr Abs (ANC) 5.26 1.70 - [facility] 6.10 [facility] x10(3)/[facility] LABORATORY Lymphocytes % 13.3 % [facility] Lymphocytes Abs 0.9 0.9 - 3.2 [facility] x10(3)/[facility] LABORATORY Monocytes % 8.2 % [facility]ORATORY Monocyte Abs 0.6 0.3 - 0.9 [facility] x10(3)/[facility] LABORATORY Eosinophils % 0.7 % [facility]ORY Eosinophils Abs 0.0 0.0 - 0.4 [facility] x10(3)/[facility] LABORATORY Basophils % 0.4 % [facility]ORY Basophils Abs 0.0 0.0 - 0.1 [facility] x10(3)/[facility] LABORATORY Immature Gran % 0.40 % [facility] Comment: Immature granulocytes(IG's)percentage an d absolute count will include metamyelocytes, myelocytes, and promyelo cytes. Blood smears from CBCs yielding IG's will be scanned manually for concor dance. If this scan disagrees with the automated IG or if promyelocytes are not ed, a manual differential will be performed. Melisa Gran Abs 0.03 0.00 - 0.04 x10(3)/[facility] MAR Y [facility] LABORATORY Specimen Anatomical Collection Method Collection Time Receive d Time (Source) Location / / Volume Laterality Blood specimen 07/05/2017 4:55 PM 017 5:24 (specimen) EST PM EST Resulting Agency Comment Spec In Lab Daphne Shahid MD HEMATOLOGY ORDERABLES Performing Organization Address City/State/ZIP [place] [address] (ABNORMAL) Hemogram (07/05/2017 4:55 PM EST) Analysis Performed At Patho logist Time Signature WBC 6.8 4.0 - 9.5 [facility] x10(3)/[facility] LABORATORY RBC 4.67 4.58 - [facility] 5.54 [facility] x10(6)/[facility] LABORATORY Hemoglobin 14.0 13.7 - [facility] 16.5 gm/dL [facility] Hematocrit 41.0 40.5 - [facility] 48[facility] % [facility] MCV 87.8 82.9 - [facility] 93.1 fL [facility] MCH 30.0 27.5 - [place] DAVIS 32.1 pg [facility] MCHC 34.1 32.0 - [place] DAVIS 35.7 gm/dL [facility] Platelets 197 145 - 357 [place] DAVIS x10(3)/[facility] LABORATORY RDWSD 46.4 (H) 36.0 - [place] DAVIS [address] [facility] LABORATORY RDWCV 14.5 (H) 11.4 - [place] RYAN 13.8 % [facility] MPV 9.7 7.6 - 12.[address] [facility] LABORATORY nRBC % Auto 0.0 % [facility] LABORATORY nRBC Abs Auto 0.000 0.000 - [place] DAVIS 0.000 [facility] x10(3)/[facility] LABORATORY Specimen Anatomical Collection Method Collection Time Receive d Time (Source) Location / / Volume Laterality Blood specimen 07/05/2017 4:55 PM 017 5:24 (specimen) EST PM EST Resulting Agency Comment Spec In Lab Daphne Shahid MD HEMATOLOGY ORDERABLES Performing Organization Address City/State/ZIP Code Phon e Number [facility] [place] [address] (ABNORMAL) Cardiac Enzymes (LEB/CGP) (07/05/2017 4:55 PM EST) P athologist Signature Troponin-T 1.69 (H) 0.00 - [place] DAVIS 0.00 ng/mL [facility] Comment: The 99th percentile for [...] additional sample may be indicated. Reference: [place] Definition of Myocardial Infarction. Journal of the [place] [employer] 2012;60:1581-98 CK, Total 191 0 - 200 unit/L [facility]OR[facility]ORY Specimen Anatomical Collection Method Collection Time Receive d Time (Source) Location / / Volume Laterality Blood specimen 07/05/2017 4:55 PM 017 5:56 (specimen) EST PM EST Resulting Agency Comment Spec In Lab Daphne Shahid MD CHEMISTRY ORDERABLES Performing Organization Address City/[facility] [place] [address] (ABNORMAL) pro-Brain Natriuretic Peptide (07/05/2017 4:55 PM EST) athologist Signature ProBNP 1,598 (H) <=125 [facility] pg/mL [facility] Specimen Anatomical Collection Method Collection Time Receive d Time (Source) Location / / Volume Laterality Blood specimen 07/05/2017 4:55 PM 017 5:24 (specimen) EST PM EST Resulting Agency Comment Spec In Lab Daphne Shahid MD CHEMISTRY ORDERABLES Performing Organization Address City/[facility]/ZIP [place] [address] Magnesium (07/05/2017 4:55 PM EST) P athologist Signature Magnesium 0.78 0.69 - 1.07 [facility] R[facility]AN mmol/L [facility] Specimen Anatomical Collection Method Collection Time Receive d Time (Source) Location / / Volume Laterality Blood specimen 07/05/2017 4:55 PM 017 5:24 (specimen) EST PM EST Resulting Agency Comment Spec In Lab Daphne Shahid MD CHEMISTRY ORDERABLES Performing Organization Address City/[facility]/ZIP [place] [address] (ABNORMAL) Basic Metabolic Panel (non-fasting) (07/05/2017 4:55 PM EST) P athologist Signature Glucose Lvl 230 (H) 65 - 199 [facility] mg/dL [facility] Comment: Diabetes: >=200 mg/dL plus symp toms BUN 19 10 - 20 mg/dL [facility] Creatinine 1.04 0.80 - 1.50 mg/dL [facility] Sodium 142 135 - 145 mmol/L [facility]ORATORY Potassium 4.0 3.5 - 5.0 mmol/L [facility] Comment: Please note: ??Patients with WBC >100,00 0 may have falsely elevated Potassium levels. ??For accurate Potassium quantif ication in these patients send serum separator tube (gold top) for subsequent determinations. ??Contact the Clinical Chemistry Laboratory if there are any qu estions. Chloride 100 98 - 107 mmol/L [facility] CO2 28 22 - 31 mmol/L [facility] Anion Gap 14 5 - 15 mmol/L [facility] Calcium 8.5 8.5 - 10.5 mg/dL [facility] LABORATORY Estimated GFR >60 >=60 [facility] Comment: The reported eGFR should be multiplied b y 1.2 for patients. The MDRD is not an appropriate measure o f renal function for patients with body mass extremes or in patients with acute kidney failure. [email or web address] Specimen Anatomical Collection Method Collection Time Receive d Time (Source) Location / / Volume Laterality Blood specimen 07/05/2017 4:55 PM 017 5:24 (specimen) EST PM EST Resulting Agency Comment Spec In Lab Daphne Shahid MD CHEMISTRY ORDERABLES Performing Organization Address City/State/ZIP [place] [address] (ABNORMAL) APTT (07/05/2017 4:55 PM EST) P athologist Signature PTT 41 (H) 25 - 35 sec [facility] Comment: The recommended therapeutic [...] Shahid MD HEMATOLOGY ORDERABLES Performing Organization Address City/[facility]/ZIP Code Phon e Number [address] (ABNORMAL) POCT Glucose (07/05/2017 4:53 PM EST) P athologist Signature POC Glucose 208 (H) 65 - 199 [facility] mg/dL [facility] Comment: Supplemental ranges: <140 mg/dL before meals <180 mg/dL all other times of the day Specimen Anatomical Collection Method Collection Time Receive d Time (Source) Location / / Volume Laterality Blood specimen 07/05/2017 4:53 PM 017 4:53 (specimen) EST PM EST Daphne Shahid MD POINT OF CARE TEST ORDERABLE S Performing Organization Address City/[facility]/[place]IP [place] [address] EKG 12 Lead (07/05/2017 4:32 PM EST) Component Value Ref Range Test Analysis Performed Pathologis t Method Time At Signature Ventricular rate 97 BPM MUSE SYSTEM Atrial Rate 97 BPM MUSE SYSTEM P-R Interval 148 ms MUSE SYSTEM QRS Duration 96 ms MUSE SYSTEM Q-T Interval 364 ms MUSE SYSTEM QTC Calculated 462 ms MUSE SYSTEM (Bezet) Calculated P [place] 48 degrees MUSE SYSTEM Calculated R [place] -33 degrees MUSE SYSTEM Calculated T [place] 98 degrees MUSE SYSTEM INTERPRETATION Normal sinus [...] Coronary atherosclerosis of unspecified type of vessel, [place] or graft Cardiomyopathy, ischemic Other specified forms [...] post-op day 1 in the AM Give [place] if unable to take PO, Routine Given [...] dose on Wed07/07/17 at 2100, Until Discontinued, [place] teeth, Routine Given 07/08/2017 10:06 PM EST [...] or norepinephrine is ineffective. Call pager # [phone] if initiated. Rate/Dose Change 07/08/2017 7:01 PM [...] Starting on [place] 07/08/17 at 0427, Until [place] 07/11/17 at 0909, Per Protocol, BOLUS order. [...] if phenyleprine and/or vasopressin ineffective.Call pager # [phone] if initiated., Routine Rate/Dose Change 07/09/2017 1:24 [...] 2.0 L/min/M2. Maximum volume 2 L. Call vat house laborer for additional fluid orders: pager #[phone]. Rate/Dose Verify 07/08/2017 4:00 AM EST 100 [...] 1) 0821 (See A lternative - Provider: oMre Luther RN) 0841 (See Alternative - Provider: George Jones RN)0900 (Not Given - Provider: mE Jones RN - Reason: Contraindicated) 0922 (See Alternative - Provider: Myrna Young RN) 300 mg, Rectal, DAILY, First dose on Wed07/07/17 at 1900, Until Discontinued, Start on post-op day 1 in the AM Give [place] if unable to take PO, Routine atorvastatin [...] Ale Rangel, VAMSI)0155 (Stopped - Provider: Ale Ranegl RN)0901 (New Bag - Provider: Em Jones [...] Reason: Contraindicated) 0000 (Not Given - Provider: Ael morris RN - Reason: Order parameters not [...] post-op day 1 in the AM Give [place] if unable to take PO
Routine Group [...]
Routine documented in this encounter Care Teams Insurance Manager Relationship Specialty Start Date End Date Lovely Vicente MD PCP - General 04/16/[address] [place] [address] [address] [place] [address] documented as of this encounter
--- OUTSIDE RECORDS SUMMARY | 2022-02-13 11:18 | XMS_ITS | Encounter Summary ---
:1945 Author Organization [facility] Address [facility] [place] [address] Care Team Providers Name Role Phone Lovely Vicente MD Primary Care Provider Reason for Visit Auth/Cert Specialty Diagnoses / Procedures Referred By Contact Refer red To Contact Diagnoses STEMI (ST elevation myocardial infarction) NSTEMI STEMI Procedures CARDIAC CATHETERIZATION NAYE IPI Referral ID Status Reason Start Date Expiration Date Visits Requ ested Visits Authorized [id number] 1 1 Encounter Details Date Type Department Care Team Description 07/07/2017 Surgery Main Operating Room Yuan Webber, @ CABG, USING ARTERIAL Barbara Ocampo MD GRAFT;SINGLE ARTERIAL Hospital [facility] GRAFT (WRVU 33.75) [facility] [address] [place] [address] SURGERY [phone] [place], [place] 0[address] (Wo rk) Social History Tobacco [...] in this encounter Discharge Summaries Martha Teague, DIRECTOR OF WORKFORCE DEVELOPMENT - 07/14/2017 9:38 AM EST Inpatient - Discharge Summary Patient Name: Gregory Hoang Patient Age: 72 y.o. Birthdate: 1945 Language: Kosovan Race: White Ethnicity: Not nor Admit Date: [...] , @ 1:20p Patient to follow-up with Equestrian Trainer/heart failure team in one week. An appointment will be made for you. You may call [phone] Patient to follow-up with Cardiac Surgery, Dr. Yuan Webber, in ~ 4 weeks with CXR, EKG. Inpatient Provider Contact Information: [facility] Section of Cardiac Surgery [facility] [phone] FAX [phone] Discharge Diagnoses (Hospital Problems) Primary Diagnoses: CAD [...] SETUP performed by Manny Mcknight MD at [facility] OR ??? PRO CABG, ARTERIAL, SINGLE N/A 07/07/2017 @CABG, USING ARTERIAL GRAFT;SINGLE ARTERIAL GRAFT (WRVU 33.75) performed by Yuan Webber MD at [facility] OR ??? PRO CABG, ARTERY-VEIN, TWO N/A 07/07/2017 @CABG, TWO VENOUS GRAFTS & ARTERIAL GRAFT (WRVU 7.93) performed by Yuan Webber MD at [facility] OR ??? PRO COLONOSCOPY, REMV LESN, SNARE 01/16/2014 COLONOSCOPY, POLYPECTOMY, REMOVAL LESION BY SNARE performed by Nohemi Jaimes MD at [facility] ENDOSCOPY ??? PRO ENDOSCOPY W/VIDEO-ASST VEIN HARVEST, CABG Right 07/07/2017 ENDOSCOPIC HARVEST VEIN(S) FOR CABG (WRVU 0.31) performed by Yuan Webber MD at [facility] OR ??? PRO THYROIDECTOMY 03/28/2013 THYROIDECTOMY, TOTAL OR COMPLETE performed by Manny Mcknight MD at [facility] OR Prior To Admission Medications Prescriptions Prior to Admission Medication Sig Dispense Refill Last Dose ??? levothyroxine (SYNTHROID) 175 mcg Tablet Take 1 tablet by mouth daily. 90 tablet 3 07/05/2017 [id number] ??? ascorbic acid, vitamin C, (VITAMIN C) [...] hospital and ruled infor non-ST segment elevation NM. This almost certainly represents the residual of [...] Hospital Course: Gregory Hoang was admitted to [facility] on 07/05/2017 via the Cardiology Service. During his hospital course, he was taken emergently to the labview programmer for an ongoing STEMI. An IABP was [...] not take or discontinue any prescription or mvbe-fxk-utsstfh medications without asking your doctor or pharmacist [...] day to have your insulin doses adjusted. [facility] Endocrine clinic office Discharge Instructions: Call your doctor if: You have a fever of greater than 101 degrees, shaking chills, if you develop redness or drainage from your incision sites, or if you have questions. Please call your surgeon's office if you have any discharge or drainage from your chest incision. Your surgeon, Dr. Yuan Webber and/or the Cardiac Surgery Physician Batter Mixer Helper Team may be reached at . Weight: [...] Dr. Yuan Webber. You may use a [place] Track or treadmill but avoid any pulling [...] friends, go to a movie, go to restorationism, etc. Heavy activities: No hunting, skiing, jogging, snow shoveling, snowmobiling, lawn mowing, swimming, golf or tennis until after your return appointment with the surgeon. Do not ride motorcycles, Rapleaf's tractors or horses. Avoid the use of [...] should resume a low fat, low cholesterol, [place] Heart Association Diet/Diabetic diet. Driving: No driving [...] , @ 1:20p Patient to follow-up with Equestrian Trainer/heart failure team in one week. Appointment will be made for you. You may call [phone] Patient to follow-up with Cardiac Surgery, Dr. Yuan Webber, in ~ 4 weeks with CXR, EKG. Cardiac Rehabilitation: Gregory Hoang was seen today regarding participation in the outpatient Phase 2 Cardiac Rehabilitation at [facility]. The patient agrees to a referral to this program. The referral will be sent at discharge and the patient should be contacted by the Program within 1- 2 weeks from discharge. ?? Future Appointments and Orders Future Appointments Provider Department Dept Phone 09/07/2017 3:00 PM LAB, THREE L Lab 3L [facility] [phone] 09/07/2017 4:00 PM Luz Prescott MD Endocrinology at [place] [phone] Future Orders Complete By Expires EKG 12 Lead [EKG1 Custom] 08/14/2017 02/13/2018 Process Instructions: Scheduling Instructions: Questions: Which DH location will this be performed?: [place] Is a rhythm strip needed?: No If EKG Reason is Pre-op Evaluation, indicate diagnosis for surgery.: XR Chest PA & Lateral (Generic) [[id number] Custom] 08/14/2017 02/13/2018 Process Instructions: Scheduling Instructions: Questions: Where will study be performed?: [place] [facility] Portable exam?: Reason for exam and clinical history: CABG x 3 Other pertinent information: Stat read required?: Date of injury if applicable: Requested Time: Referral to Cardiac Rehab [[id number] Custom] As directed Process Instructions: If no progress note charted, please enter Clinical details in comments. Scheduling Instructions: Questions: My question or request is: s/p CABG. Cardiac rehab at [facility] Referral to Home Health - at DISCHARGE [XYO9417 CPT(R)] As directed Process Instructions: Scheduling Instructions: Comments: DOCUMENTATION FOR VNA SERVICES (INCLUDING THOSE PATIENTS WITH MEDICARE COVERAGE REQUIRING HOME VNA SERVICES AND/OR HOSPICE SERVICES) PATIENT'S LOCATION: Gregory Hoang [address] [place] [address] [place] [id number] (home) Telephone Information: Steam Hand's Name: self In discussion with the attending physician, it is certified that this patient is under their care and that they, or a Nurse Practitioner, or Physician Batter Mixer Helper who is working directly with them, had [...] HEALTH AGENCY: [facility] ([facility] [place] [facility]-is in [place] PHONE: [phone] FAX: [phone] RN orders: Cardiopulmonary assessment, incisional assessment, assess vital signs, assessment of rehab progress, medication management and effectiveness, home safety evaluation. Please draw INR if indicated and send result to:Dr Vicente [phone] PT ORDERS: Continue rehab for endurance, gait stability and strength with mobility and transfers. Home safety evaluation. Home exercise program if appropriate. Start of Care Date:24-48 hours after discharge SPECIAL INSTRUCTIONS: For any follow up questions, needs, or issues please call the Cardiac Surgery Office at [phone] FOR MEDICARE ONLY: (please delete this section [...] noted. Questions: Agency name and contact information: [facility] Patient location post discharge: home What services are requested: Registered Nurse Physical Therapy Start date: Responsible MD post discharge contact info: PCP Arrangements for VNA/home care: As above. VN RN OR PCP TO PLEASE REMOVE CHEST TUBE SUTURES ON OR AFTER 07/17/2017 Signed: Martha Teague APRN [facility] Section of Cardiac Surgery [facility] [phone] FAX [phone] Date: 07/14/2017 CC: MD Ivania Cr Betsy, [place] [address] [place] [phone] documented in this encounter Discharge Instructions Discharge [...] day to have your insulin doses adjusted. [facility] Endocrine clinic office Patient InstructionsStMartha mcdonald APRN [...] not take or discontinue any prescription or iuxq-hqa-rioxyba medications without asking your doctor or pharmacist [...] day to have your insulin doses adjusted. [facility] Endocrine clinic office ? Discharge Instructions: ?? Call your doctor if: You have a fever of greater than 101 degrees, shaking chills, if you develop redness or drainage from your incision sites, or if you have questions. Please call your surgeon's office if you have any discharge or drainage from your chest incision. Your surgeon, Dr. Yuan Webber and/or the Cardiac Surgery Physician Batter Mixer Helper Team may be reached at . ?? [...] Dr. Yuan Webber. You may use a [place] Track or treadmill but avoid any pulling [...] friends, go to a movie, go to restorationism, etc. ?? Heavy activities: No hunting, skiing, jogging, snow shoveling, snowmobiling, lawn mowing, swimming, golf or tennis until after your return appointment with the surgeon. Do not ride motorcycles, Rapleaf's tractors or horses. Avoid the use of [...] should resume a low fat, low cholesterol, [place] Heart Association Diet/Diabetic diet. ?? Driving: No [...] @ 1:20p ?? Patient to follow-up with Equestrian Trainer/heart failure team in one week. An appointment has been made for you, you can call [phone] ?? Patient to follow-up with Cardiac Surgery, Dr. Yuan Webber, in ~ 4 weeks with CXR, EKG. ? Cardiac Rehabilitation: Gregory Hoang??was seen today regarding participation in the outpatient Phase 2 Cardiac Rehabilitation at [facility]. ?? The patient agrees to a referral to this program.? The referral will be sent at discharge and the patient should be contacted by the Program within 1- 2 weeks from discharge. ? Future Appointments and Orders Future Appointments Provider Department Dept Phone ?? 09/07/2017 3:00 PM LAB, THREE L Lab 3L [facility] [phone] ?? 09/07/2017 4:00 PM Luz Prescott MD Endocrinology at [place] [phone] Future Orders Complete By Expires ?? EKG 12 Lead [EKG1 Custom] 08/14/2017 02/13/2018 ?? Process Instructions: ? Scheduling Instructions: ? Questions: ? Which location will this be performed?: [place] ?? Is a rhythm strip needed?: No ?? If EKG Reason is Pre-op Evaluation, indicate diagnosis for surgery.: ?? XR Chest PA & Lateral (Generic) [[id number] Custom] 08/14/2017 02/13/2018 ?? Process Instructions: ? Scheduling Instructions: ? Questions: ? Where will study be performed?: [place] [facility] ?? Portable exam?: ?? Reason for exam and clinical history: CABG x 3 ?? Other pertinent information: ?? Stat read required?: ?? Date of injury if applicable: ?? Requested Time: ?? Referral to Cardiac Rehab [[id number] Custom] As directed ? Process Instructions: ?? If no progress note charted, please enter Clinical details in comments. ?? Scheduling Instructions: ? Questions: ? My question or request is: s/p CABG. Cardiac rehab at [facility] ? Arrangements for VNA/home care: [...] RN - 07/14/2017 2:34 PM EST The patient/insurance verification representative has been provided a list of Home Health Agencies/DME vendors which serve their preferred geographic area. A letter describing our affiliations was reviewed with them and theywere educated about their right to choose where referrals are placed. Patient requests referral to [facility] [employer]. PHONE: [phone] FAX: [phone] Expected date of discharge: 07/14 Referral routed to the Batter Mixer Helper for matching with agency/vendor and to provide [...] 1 tablet twice daily due to transient RDAHA His PCP may resume the additional tablet [...] day to have your insulin doses adjusted. [facility] Endocrine clinic office Kathie Carrera APRN [facility] Endocrinology Diabetes Management Pager [phone] 20 minutes of this 35 minute visit was spent with the patient in counseling on diabetes and treatment plan, reviewing all glucose and insulin data as well as relevant laboratory results with the patient, and coordination of care on the inpatient unit including nursing and primary team. Zulma Power RN - 07/14/2017 10:30 AM EST The patient/insurance verification representative has been provided a list of Home Health Agencies/DME vendors which serve their preferred geographic area. A letter describing our affiliations was reviewed with them and theywere educated about their right to choose where referrals are placed. Patient requests referral to : [facility] ([facility] [place] [facility]-is in [place]) PHONE: [phone] FAX: [phone]. Expected date of discharge: 07/14/17 Referral routed to the Batter Mixer Helper for matching with agency/vendor and to provide [...] hours. If BG remains greater than 240, [id number] units (no more than three times) &??call [...] #6 s/p CABG X3. FSBG 80 at DC, reports no symptoms but did drink some [...] Will continue to follow Katerin Azul APRN [facility] Endocrinology Diabetes Management Pager [phone] 15 minutes of this 25 minute visit [...] of infiltration/extravasation Discussed plan of care with INVENTORY PLANNER and RN. Elevate exrtemity and apply intermittent Warm compresses. Name of MD contacted Dr. Shaw Brown 07/13/2017 @ 0692 Name of RN contacted Ale Rangel RN Name of Pharmacist if consulted NA Name of Plastics MD ( if consulted) NA (Mandatory photo for infiltrations/ extravasations scoring a stage 2 or greater, but recommended forstage 1)( include measuring tape and identifier in the photo) LOOM OPERATOR CARING FOR THIS PATIENT WILL CONTINUE [...] measuring tape and identifier in the photo) LOOM OPERATOR CARING FOR THIS PATIENT WILL CONTINUE [...] regard to both infiltrates addressed by this commercial underwriter.All of MrMadiha Hoang's responses were entirely appropriate. Images of infiltrates attached here. L Martha eTague, DIRECTOR OF WORKFORCE DEVELOPMENT - 07/13/2017 8:01 AM EST Cardiac Surgery Progress Note: ID: [id number] 72 year old male POD#6 s/p CABGx3 [...] discharge. ?? I have met with the patient/insurance verification representative to discuss discharge planning needs. I have provided the [facility], Office of Care Management letter from the [employer] pertaining to rehab referrals. I have also provided a letter describing our affiliations within the [facility] and educated them about their right to choose where referrals are placed. ?? I reviewed the different levels of rehab including SNF, swing, acute and LTAC with the patient/insurance verification representative. ?? The patient/insurance verification representative has been provided a list of facilities within their preferred geographic area. ?? I have requested that the patient/insurance verification representative provide at least three choices for referral. ?? The patient/insurance verification representative have requested referrals to: ?? [facility]. [facility] ?? 2. [facility] ?? 3. More to be entered ?? Expected date of discharge: 07/14 Note routed to Batter Mixer Helper who will communicate referrals to facilities and [...] hours. If BG remains greater than 240, [id number] units (no more than three times) & call for new basal insulin orders. ??If less than 240 after two hours, give no insulin and resume prior schedule. Will continue to follow Katerin Azul APRN [facility] Endocrinology Diabetes Management Pager [phone] 20 minutes of this 35 minute visit was spent with the patient in counseling on diabetes and treatment plan, reviewing all glucose and insulin data as well as relevant laboratory results with the patient, and coordination of care on the inpatient unit including nursing and primary team. Makayla Stevenson APRN - 07/12/2017 9:52 AM EST Cardiac Surgery Progress Note: ID: [id number] 72 year old male POD#5 s/p CABGx3 [...] 07/11/2017 7:18 PM EST Patient arrived from [facility]. VSS. MSI dressing pulled off with fresh [...] AM EST Cardiac Surgery Progress Note: ID: [id number] 72 year old male POD#4 s/p CABGx3 [...] HF meds. Signed: MAKAYLA WILSON APRN Ninfa Arntet DT - 07/11/2017 7:34 AM EST Nutrition [...] hours. If BG remains greater than 240, [id number] units (no more than three times) & [...] AM EST Cardiac Surgery Progress Note: ID: [id number] 72 year old male POD#3 s/p CABGx3 [...] Gas) No results found for: PHART, PO2ART, NJO5TSI Assessment/Plan: 72 year old male POD#3 s/p [...] Mami Thao - 07/09/2017 6:29 PM EST Supervisor Electron Tube Processing Encounter Note Patient Name: Gregory Hoang : [id number] MR#: [id number] Admit Date: 07/05/2017 4:20 PM Hospital Day 4 days Narrative: Patient was sitting in chair, hugging heart pillow, opened his eyes, nodding to come into room Assessment: Patient was sleepy. Intervention and Outcome: Introduced gas meter checker services and patient reached his hand out in appreciation. Follow-up: Supervisor Electron Tube Processing remains available for support. Time in Direct [...] 10:45 AM EST Report given to staff registered nurse to cover care Maddison Cee PA - 07/09/2017 9:00 AM EST Cardiac Surgery Progress Note: ID: [id number] 72 year old male POD#2 s/p CABGx3 [...] completed shifts: In: 7977.4 [I.V.:7477.4; Other:500] Out: 3045 [Urine:3000; Other:615] I- 4 L O- 2.7 [...] Attending Surgeon on rounds. Signed: STEPHANIE Iqbal [facility] Section of Cardiac Surgery Date: 07/09/2017 [...] when IABP d/c'ed. Gretchen Carolina, PT Pager [phone] Maddison Cee PA - 07/08/2017 11:27 AM EST Cardiac Surgery Progress Note: ID: [id number] 72 year old male POD#1 s/p CABGx3 [...] Attending Surgeon on rounds. Signed: STEPHANIE Iqbal [facility] Section of Cardiac Surgery Date: 07/08/2017 Philipp, [...] in place in R femoral. No hematoma. BOATBUILDER APPRENTICE WOOD- Intact Psych- Anxious Skin- Dry, no peripheral [...] intact. IABP in place in R femoral. BOATBUILDER APPRENTICE WOOD- Intact Psych- Anxious Skin- Dry, no peripheral [...] No current respiratory distress No evidence for ARDHA Wbc 7.6; afebrile plavix yesterday; heparin drip [...] pending CABG - hold metformin - f/u [facility] ?? #Home Meds - continue levothyroxine [...] note for details. DAPHNE SHAHID MD Pager [phone] Jet Mckenna MD - 07/05/2017 6:48 PM EST Preliminary Cardiac Catheterization Procedure Note: Procedure(s) performed: Left heart cath, IABP insertion Access: Right COSMETIC ACCOUNT COORDINATOR-->8fr IABP A time-out was conducted prior to [...] effect. Heparin gtt maintained. Pt transferred to labview programmer. documented in this encounter H&P Notes Daphne Shahid MD - 07/05/2017 6:08 PM EST CARDIOLOGY HISTORY & PHYSICAL EXAM Date of Admission: 07/05/2017 ( Hospital Day 0 days ) Responsible Attending: Daphne Shahid MD PCP: Lovely Vicente MD PCP#: [phone] Patient Active Problem List Diagnosis Code ??? [...] load with heparin drip and transferred to [facility]. While there, continued sob, question of chest pain. Stat TTE showing WMA diffusely and EF around 20%. No significant valvular disease. Taken to the labview programmer urgently for ongoing STEMI. [facility] Labs: INR 1.0 WBC 5.88 [...] monitor I/O - s/p lasix in the labview programmer, redose to aim net neg 1L by [...] Medicine, PGY-2 Cardiology S1, Team Pager # [phone] CARDIOLOGY ATTENDING NOTE Patient: Gregory Hoang Date [...] amenable for PCI. DAPHNE SHAHID MD Pager [phone] documented in this encounter Miscellaneous Notes Consult Note - Daphne Shahid MD - 07/14/2017 11:46 AM EST Heart Failure Service Inpatient Consult Note Gregory Hoang Date of : 1945 Age: 72 y.o. Today's date: 07/14/17 PCP: Lovely Vicente MD CONVEYOR MAN: None Place of Service: C451-A Reason for [...] SETUP performed by Manny Mcknight MD at [facility] OR ??? PRO CABG, ARTERIAL, SINGLE N/A 07/07/2017 @CABG, USING ARTERIAL GRAFT;SINGLE ARTERIAL GRAFT (WRVU 33.75) performed by Yuan Webber MD at [facility] OR ??? PRO CABG, ARTERY-VEIN, TWO N/A 07/07/2017 @CABG, TWO VENOUS GRAFTS & ARTERIAL GRAFT (WRVU 7.93) performed by Yuan Webber MD at [facility] OR ??? PRO COLONOSCOPY, REMV LESN, SNARE 01/16/2014 COLONOSCOPY, POLYPECTOMY, REMOVAL LESION BY SNARE performed by Nohemi Jaimes MD at [facility] ENDOSCOPY ??? PRO ENDOSCOPY W/VIDEO-ASST VEIN HARVEST, CABG Right 07/07/2017 ENDOSCOPIC HARVEST VEIN(S) FOR CABG (WRVU 0.31) performed by Yuan Webber MD at [facility] OR ??? PRO THYROIDECTOMY 03/28/2013 THYROIDECTOMY, TOTAL OR COMPLETE performed by Manny Mcknight MD at [facility] MAIN OR Outpt Meds: Current Outpatient [...] following studies: EKG 07/14/17: NSR 75 bpm, KETTLE FIRER anterior infarct, LAD CXR 07/11/17: FINDINGS: Sternotomy wires. The patient has been extubated, left chest tube removed, and Grassflat-Suzi catheter removed since the 07/07/2017 study. Atelectasis [...] was discussed with Zehra. Jaden Kelley MD Auto Electrical Technician Pager [phone] CARDIOLOGY ATTENDING NOTE Patient: Gregory Hoang Date [...] heart failure clinic. DAPHNE SHAHID MD Pager [phone] Plan of Care - Alden Chavarria, ASSOCIATE PROFESSOR OF LIBRARY MEDIA - 07/14/2017 11:35 AM EST Problem: Patient [...] Disposition: home with assist Alden Jorge Genikevin, ASSOCIATE PROFESSOR OF LIBRARY MEDIA Pager: [phone] Inpatient Physical Therapy Problem: Acute Rehab Services [...] sit/sit to supine -- Bed Mobility Goal, Worth Level supervision required -- Bed Mobility Goal, [...] - 3 days -- Gait Training Goal, Worth Level supervision required -- Gait Training Goal, [...] days -- Transfer Training Goal, Activity Type aui-hh-mietg/dglma-wk-xpb;vof-ak-aebok/oeoxu-sa-lpf;toilet -- Transfer Train Goal, Worth Level supervision required -- Transfer Training Goal, [...] keeping present for 2 days per family. Network Programmer noted of frustrations, house keeping sent to room. Patient offered showered twice, refused. at bedside, frustrated that shower not complete, informed that patient had refused several times. requesting to see COLLATING MACHINE OPERATOR, paged sent to Martha, will come to bedside (middle of consult). not willing to wait, Martha notified that family had gone home. Encouraged to come for morning rounds a t 8am. Diabetes team at bedside - insulin adjustments made. Call cabello in reach. Continue to monitor. PLAN MOVING FORWARD: Ambulate, dressing changes BID, Please change drsg at 4am per Martha COLLATING MACHINE OPERATOR request. INDIVIDUALIZED FALL PREVENTION INTERVENTIONS: Patient-specific fall [...] levels on the lower side, 60ml of Acworth juice given after a FS of 80. [...] 07/13/17 0502 Interdisciplinary Rounds/Family Conf Participants case managers;dietitian/nutrition services;nursing;occupational therapy;patient;pharmacy;physical therapy;physician Plan of Care - [...] Anticipated Discharge Disposition: home with assist Pager: [phone] CLARISSA SEGAL, PT 07/12/2017 Physical Therapy Rehabilitation [...] to sit/sit to supine Bed Mobility Goal, Worth Level supervision required Bed Mobility Goal, Additional Goal adheres to psternal precautions for transfer Goal: Gait Training Goal Stand Alone Therapy Goal Outcome: Ongoing (Interventions Implemented as Appropriate) 07/12/17 1225 Gait Training Goal Gait Training Goal, Date Established 07/12/17 Gait Training Goal, Time to Achieve 2 - 3 days Gait Training Goal, Worth Level supervision required Gait Training Goal, Assist [...] 3 days Transfer Training Goal, Activity Type rly-dp-rknnf/nmsqn-kx-xnb;akb-sh-ovcuf/inzwo-an-sic;toilet Transfer Train Goal, Worth Level supervision required Transfer Training Goal, Additional Goal adheres to sternal precautions during transfer Consult Note - Octavia Vaughn RN - 07/12/2017 10:50 AM EST [facility] CARDIAC REHABILITATION Gregory Hoang was seen today regarding participation in the outpatient Phase 2 Cardiac Rehabilitation at [facility]. The patient agrees to a [...] IV site, amio to other piv and SAP BODS DEVELOPER at bedside to help assess, IV removed. [...] staff, he stood and marched in place. [place] weak, wanting to sit back down. Remained [...] Health/Prescription Coverage: Primary Insurance: MEDICARE Secondary Insurance: [place] [place] Prescription Coverage: yes Preferred Pharmacy: [facility] [place] Other: none Primary Care Provider: Lovely Vicente MD [phone] Patient/Caregiver Goals of Treatment:live and get my breath back Potential Needs for Transition of Care: Rehab/SNF: [facility] Home Health: NA DME: TBD Dialysis: na Community Resources: available Transportation: yes Other: none Anticipated Barriers to Discharge/Special Considerations: none Plan: Likely SNF Rehab before home A member of the Care Management team will continue to monitor progress, follow for continuity of care and assist with transition of care planning. ERLIN Weiss Pager: [phone] Consult Note - Katerin Azul RN - [...] management and to provide a review of ocean transportation intermediary diabetes care. Diabetes History: Gregory Hoang has [...] potential to d/c gtt and start CF. [facility] diabetes care: Medications - Outpatient treatment regimen recommendations pending based on the hospital course. Monitoring - continue BG tid ac & hs Diet - low fat/low carb diet Exercise - weight-bearing exercise 30 min/day, as tolerated Thank you for allowing us to provide care for your patient W/E coverage, Dr. 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 In this [...] code status: Full Code Katty Hahn, MS3 [facility] Cardiology S1 (Pager [phone]) Plan of Care - Emelia Ibarra RN [...] hospital and ruled infor non-ST segment elevation NM. This almost certainly represents the residual of [...] by Manny Mcknight MD at [facility] MAIN OR ??? PRO COLONOSCOPY, REMV LESN, SNARE 01/16/2014 COLONOSCOPY, POLYPECTOMY, REMOVAL LESION BY SNARE performed by Nohemi Jaimes MD at [facility] ENDOSCOPY ??? PRO THYROIDECTOMY 03/28/2013 THYROIDECTOMY, TOTAL OR COMPLETE performed by Manny Mcknight MD at [facility] MAIN OR Social History: Social History [...] with other involved physicians Yuan Webber MD [phone] Med Student Progress Note - Katty Hahn [...] major CV events such as , stroke, NM, repeat revascularization compared to PCI). In this [...] or BiPAP - s/p lasix in the labview programmer, was net -1.5L - s/p plavix load, [...] FULL - Dispo: CVCC Katty Hahn, M3 [facility] Cardiology S1 (Pager [phone]) Plan of Care - Stephanie Godoy RN - 07/06/2017 5:00 AM EST Problem: Patient Care Overview Goal: Plan of Care Review 07/06/17 [id number] Coping/Psychosocial Plan Of Care Reviewed With patient;family [...] in urinal without difficulty. Lasix given in labview programmer, 1.4 L out at this time. Pt [...] PA [facility] er Cardiology Dept [place], [place] [address] (Wo rk) 03/26/2022 Office Visit Cardiology Vitaliy Nobles MD [facility] ER CARDIOLOGY [place], [place] [address] (Wo rk) Scheduled Orders Name [...] procedure are i n the results section. CLOUD DEVELOPER SCAN 07/15/2017 12:00 Res ults for this [...] Routine 07/07/2017 5:15 Results f or this ([facility]) AM EST procedure are i n the [...] Routine 07/06/2017 7:40 Results f or this ([facility]) PM EST procedure are i n the [...] Timed 07/06/2017 2:10 Results f or this ([facility]/CG) PM EST procedure are i n the [...] section. TYPE AND SCREEN Routine 07/06/2017 12:00 ([facility]/SHANDA) PM EST APTT STAT 07/06/2017 11:24 Results [...] Routine 07/06/2017 8:10 Results f or this ([facility]) AM EST procedure are i n the [...] Routine 07/06/2017 2:20 Results f or this ([facility]) AM EST procedure are i n the [...] Timed 07/05/2017 4:55 Results f or this ([facility]) PM EST procedure are i n the [...] Teague APRN IMG DX ORDERABLES SCAN DOC: CLOUD DEVELOPER (07/15/2017 12:00 AM EST) Narrative 07/15/2017 12:00 [...] Signature POC Glucose 186 65 - 199 [facility] mg/dL [facility] LABORATORY [...] Organization Address City/State/[place] [address] POCT Glucose (07/14/2017 7:52 AM EST) athologist Signature POC Glucose 126 65 - 199 [facility] mg/dL [facility] Comment: Supplemental ranges: <140 mg/dL before meals <180 mg/dL all other times of the day Specimen Anatomical Collection Method Collection Time Receive d Time (Source) Location / / Volume Laterality Blood specimen 07/14/2017 7:52 AM 017 7:52 (specimen) EST AM EST Yuan Webber MD POINT OF CARE TEST ORDERABLE S Performing Organization Address [facility]/ZIP [place] [address] (ABNORMAL) Prothrombin Time (07/14/2017 4:46 AM EST) athologist Signature PT 26.4 (H) 11.8 - 14.0 [facility] LABORATORY INR 2.4 (H) 0.9 - 1.1 [facility] LABORATORY Comment: An INR [...] APRN HEMATOLOGY ORDERABLES Performing Organization Address City/[facility] [place] [address] Potassium (07/14/2017 4:46 AM EST) athologist Signature Potassium 4.3 3.5 - 5.0 [facility] mmol/L [facility] LAB[facility]ORY Comment: Please note: ??Patients with [...] Address City/State/ZIP Code Phon e Number [address] POCT Glucose (07/14/2017 4:34 AM EST) athologist Signature POC Glucose 115 65 - 199 [facility] mg/dL [facility] LABORATORY Comment: [...] Address City/[facility]/ZIP Code Phon e Number [address] POCT Glucose (07/13/2017 11:33 PM EST) athologist Signature POC Glucose 132 65 - 199 [facility] mg/dL [facility] Comment: [...] Address City/[facility]/ZIP [place] [address] POCT Glucose (07/13/2017 9:25 PM EST) athologist Signature POC Glucose 121 65 - 199 [facility] mg/dL [facility] LAB[facility]ORY Comment: [...] Organization Address City/State/[place] [address] POCT Glucose (07/13/2017 4:55 PM EST) athologist Signature POC Glucose 79 65 - 199 [facility] mg/dL [facility]ORY Comment: [...] Organization Address City/State/[place] [address] [facility] [address] POCT Glucose (07/13/2017 11:16 AM EST) athologist Signature POC Glucose 163 65 - 199 [facility] mg/dL [facility] LAB[facility]ORY Comment: [...] Organization Address City/State/[place] [address] POCT Glucose (07/13/2017 8:07 AM EST) athologist Signature POC Glucose 96 65 - 199 [facility] mg/dL [facility] Comment: [...] Organization Address City/State/[place] [address] (ABNORMAL) Prothrombin Time (07/13/2017 4:26 AM EST) P athologist Signature PT 20.8 (H) 11.8 - 14.0 [facility] LABORATORY INR 1.8 (H) 0.9 - 1.1 [facility] LABORATORY Comment: An INR [...] Address City/State/Z[place] [address] (ABNORMAL) Basic Metabolic Panel (non-fasting) (07/13/2017 4:26 AM EST) athologist Signature Glucose Lvl 95 65 - 199 [facility] mg/dL [facility] LAB[facility]ORY Comment: Diabetes: >=200 mg/dL plus symp toms BUN 25 (H) 10 - 20 mg/dL [facility] LABORATORY Creatinine 1.19 0.80 - 1.50 mg/dL [facility] LABORATORY Sodium 143 135 - 145 mmol/L [facility] LABORATORY Potassium 3.7 3.5 - 5.0 mmol/L [facility] LABORATORY Comment: Please note: ??Patients with WBC >100,00 0 may have falsely elevated Potassium levels. ??For accurate Potassium quantif ication in these patients send serum separator tube (gold top) for subsequent determinations. ??Contact the Clinical Chemistry Laboratory if there are any qu estions. Chloride 104 98 - 107 mmol/L [facility] LABORATORY CO2 26 22 - 31 mmol/L [facility] LABOR[facility]ORY Anion Gap 13 5 - 15 mmol/L [facility] LABORATORY Calcium 7.7 (L) 8.5 - 10.5 mg/dL [facility] LABORATORY Estimated GFR 60 >=60 [facility] LABORATORY Comment: The reported eGFR should be multiplied b y 1.2 for patients. The MDRD is not an appropriate measure o f renal function for patients with body mass extremes or in patients with acute kidney failure. http://[employer]/DHnkdep http://[employer]/DHMCnkf Specimen Anatomical Collection Method Collection Time Receive d Time (Source) Location / / Volume Laterality Blood specimen 07/13/2017 4:26 AM 017 4:46 (specimen) EST AM EST Resulting Agency Comment Spec In Lab Makayla Wilson APRN CHEMISTRY ORDERABLES Performing Organization Address City/State/ZIP Code Phon e Number [address] POCT Glucose (07/13/2017 3:52 AM EST) athologist Signature POC Glucose 93 65 - 199 [facility] mg/dL [facility] LABORATORY [...] Address City/State/ZIP Code Phon e Number [address] POCT Glucose (07/13/2017 12:21 AM EST) athologist Signature POC Glucose 80 65 - 199 [facility] mg/[facility] Comment: [...] Address City/[facility]/ZIP Code Phon e Number [address] POCT Glucose (07/12/2017 8:22 PM EST) P athologist Signature POC Glucose 119 65 - 199 [facility] mg/dL [facility] LAB[facility] Comment: [...] Address City/[facility]/ZIP Code Phon e Number [address] POCT Glucose (07/12/2017 4:02 PM EST) P athologist Signature POC Glucose 114 65 - 199 [facility] mg/dL [facility] LAB[facility] Comment: [...] Address City/State/ZIP Code Phon e Number [address] POCT Glucose (07/12/2017 11:28 AM EST) P athologist Signature POC Glucose 164 65 - 199 [facility] mg/dL [facility] LAB[facility] Comment: [...] Address City/State/ZIP Code Phon e Number [address] POCT Glucose (07/12/2017 7:34 AM EST) athologist Signature POC Glucose 109 65 - 199 [facility] mg/dL [facility] Comment: [...] Address City/State/Z[place] [address] (ABNORMAL) Basic Metabolic Panel (non-fasting) (07/12/2017 4:11 AM EST) athologist Signature Glucose Lvl 92 65 - 199 [facility] mg/dL [facility] Comment: Diabetes: >=200 mg/dL plus symp toms BUN 31 (H) 10 - 20 mg/dL [facility] LABORATORY Creatinine 1.23 0.80 - 1.50 mg/dL [facility] LABORATORY Sodium 145 135 - 145 mmol/L [facility] LABORATORY Potassium Not Perf 3.5 - 5.0 mmol/L [facility] LABORATORY Comment: Duplicate order Please note: ??Patients with WBC >100,00 0 may have falsely elevated Potassium levels. ??For accurate Potassium quantif ication in these patients send serum separator tube (gold top) for subsequent determinations. ??Contact the Clinical Chemistry Laboratory if there are any qu estions. Chloride 106 98 - 107 mmol/L [facility] LABORATORY CO2 Not Perf 22 - 31 mmol/L [facility] LABORATORY Comment: Add-on request. Sample too old to perform test. Anion Gap Not Calculated 5 - 15 mmol/L [facility] LABORATORY Calcium 8.1 (L) 8.5 - 10.5 mg/dL [facility] LABORATORY Estimated GFR 58 (L) >=60 [facility] LABORATORY Comment: The reported eGFR should be multiplied b y 1.2 for patients. The MDRD is not an appropriate measure o f renal function for patients with body mass extremes or in patients with acute kidney failure. http://[employer] Interactive/DHnkdep http://[employer]/DHMCnkf Specimen Anatomical Collection Method Collection Time Receive d Time (Source) Location / / Volume Laterality Blood specimen 07/12/2017 4:11 AM 017 8:57 (specimen) EST AM EST Resulting Agency Comment Spec [facility] CHEMISTRY ORDERABLES Performing Organization Address [facility] Phon e Number [address] (ABNORMAL) Prothrombin Time (07/12/2017 4:11 AM EST) P athologist Signature PT 15.4 (H) 11.8 - 14.0 [facility] LABORATORY INR 1.2 (H) 0.9 - 1.1 [facility] LABORATORY Comment: An INR [...] [place] STACIE HEMATOLOGY ORDERABLES Performing Organization Address [facility] Phon e Number [address] Potassium (07/12/2017 4:11 AM EST) P athologist Signature Potassium 3.8 3.5 - 5.0 [facility] mmol/L [facility] LAB[facility]ORY Comment: Please note: ??Patients with [...] Address City/[facility]/ZIP Code Phon e Number [address] POCT Glucose (07/12/2017 4:10 AM EST) athologist Signature POC Glucose 90 65 - 199 [facility] mg/dL [facility] Comment: [...] Address City/[facility]/ZIP Code Phon e Number [address] POCT Glucose (07/11/2017 11:57 PM EST) P athologist Signature POC Glucose 98 65 - 199 [facility] mg/dL [facility] Comment: [...] Address City/[facility]/Z[place] [address] POCT Glucose (07/11/2017 8:32 PM EST) P athologist Signature POC Glucose 146 65 - 199 [facility] mg/dL [facility] LABORATORY Comment: [...] City/State/ZIP Code Phon e Number [facility] [place] [place] [address] XR Chest PA & [...] e xtubated, left chest tube removed, and Grassflat-Suzi catheter removed since the study. Atelectasis at both lung bases, greater on the left with a small effusion on that side. Stable mild cardiomegaly. No pulmonary edema. No pne umothorax. Procedure Note Lloyd Brisoce MD - 07/11/2017Form atting of this note might be different from the original. EXAMINATION: XR CHEST PA AND LATERAL (GE NERIC) CLINICAL HISTORY: s/p CABGx3 TECHNIQUE: Chest and lateral COMPARISON: 07/07/2017 FINDINGS: Sternotomy wires. The patient has been e xtubated, left chest tube removed, and Grassflat-Suzi catheter removed since the study. Atelectasis at [...] (H) 65 - 199 [facility] mg/dL [facility] Comment: [...] Address City/[facility]/ZIP Code Phon e Number [address] POCT Glucose (07/11/2017 11:55 AM EST) athologist Signature POC Glucose 176 65 - 199 [facility] mg/dL [facility] Comment: [...] Address City/State/Z[place] [address] POCT Glucose (07/11/2017 7:53 AM EST) athologist Signature POC Glucose 189 65 - 199 [facility] mg/dL [facility] Comment: [...] Address City/[facility]/Z[place] [address] POCT Glucose (07/11/2017 4:22 AM EST) athologist Signature POC Glucose 151 65 - 199 [facility] mg/dL [facility] Comment: Supplemental ranges: <140 mg/dL before meals <180 mg/dL all other times of the day Specimen Anatomical Collection Method Collection Time Receive d Time (Source) Location / / Volume Laterality Blood specimen 07/11/2017 4:22 AM 017 4:22 (specimen) EST AM EST Yuan Webber MD POINT OF CARE TEST ORDERABLE S Performing Organization Address City/[facility] [place] [address] Potassium (07/11/2017 2:20 AM EST) athologist Signature Potassium 4.5 3.5 - 5.0 [facility] mmol/L [facility] Comment: Please note: ??Patients with [...] CHEMISTRY ORDERABLES Performing Organization Address City/[facility]/ZIP [facility] Phon e Number [address] POCT Glucose (07/11/2017 12:17 AM EST) athologist Signature POC Glucose 162 65 - 199 [facility] mg/dL [facility] Comment: [...] Address City/State/Z[place] [address] POCT Glucose (07/10/2017 8:47 PM EST) athologist Signature POC Glucose 191 65 - 199 [facility] mg/dL [facility] Comment: [...] Address City/State/Z[place] [address] POCT Glucose (07/10/2017 4:06 PM EST) athologist Signature POC Glucose 131 65 - 199 [facility] mg/dL [facility] Comment: [...] Address City/State/Z[place] [address] POCT Glucose (07/10/2017 3:08 PM EST) athologist Signature POC Glucose 151 65 - 199 [facility] mg/dL [facility] Comment: [...] Address City/State/ZIP Code Phon e Number [address] POCT Glucose (07/10/2017 2:25 PM EST) athologist Signature POC Glucose 146 65 - 199 [facility] mg/dL [facility] Comment: [...] Address City/[facility]/Z[place] [address] POCT Glucose (07/10/2017 1:23 PM EST) athologist Signature POC Glucose 166 65 - 199 [facility] mg/dL [facility] Comment: [...] Address City/State/Z[place] [address] POCT Glucose (07/10/2017 11:52 AM EST) athologist Signature POC Glucose 157 65 - 199 [facility] mg/dL [facility] Comment: Supplemental ranges: <140 mg/dL before meals <180 mg/dL all other times of the day Specimen Anatomical Collection Method Collection Time Receive d Time (Source) Location / / Volume Laterality Blood specimen 07/10/2017 11:52 7 (specimen) AM EST 11:52 AM EST uYan Webber MD POINT OF CARE TEST ORDERABLE S Performing Organization Address City/State/ZIP Code Phon e Number [address] POCT Glucose (07/10/2017 11:01 AM EST) P athologist Signature POC Glucose 158 65 - 199 [place] mg/dL [facility] Comment: [...] Address City/[facility]/ZIP Code Phon e Number [address] POCT Glucose (07/10/2017 9:54 AM EST) P athologist Signature POC Glucose 160 65 - 199 [facility] mg/dL [facility] Comment: [...] Address City/State/ZIP Code Phon e Number [address] POCT Glucose (07/10/2017 8:58 AM EST) P athologist Signature POC Glucose 183 65 - 199 [facility] mg/dL [facility] Comment: [...] Address City/State/ZIP [place] [address] POCT Glucose (07/10/2017 8:01 AM EST) athologist Signature POC Glucose 173 65 - 199 [facility] mg/dL [facility] Comment: [...] Address City/State/ZIP [place] [address] POCT Glucose (07/10/2017 7:05 AM EST) athologist Signature POC Glucose 166 65 - 199 [facility] mg/dL [facility] Comment: [...] Address City/State/ZIP [place] [address] POCT Glucose (07/10/2017 6:00 AM EST) athologist Signature POC Glucose 162 65 - 199 [facility] mg/dL [facility] Comment: [...] Address City/State/ZIP Code Phon e Number [address] (ABNORMAL) Differential, Automated (07/10/2017 4:28 AM EST) [facility] Method Time Signature Neutrophils % 87.9 % [facility] LABORATORY Neutr Abs (ANC) 10.70 (H) 1.70 - [facility] 6.10 [facility] x10(3)/[facility] L LABORATORY Lymphocytes % 3.9 % [facility] LABORATORY Lymphocytes Abs 0.5 (L) 0.9 - 3.2 [facility] x10(3)/[facility] LABORATORY Monocytes % 7.0 % [facility] LABORATORY Monocyte Abs 0.8 0.3 - 0.9 [facility] x10(3)/[facility] LABORATORY Eosinophils % 0.3 % [facility] LABORATORY Eosinophils Abs 0.0 0.0 - 0.4 [facility] x10(3)/[facility] LABORATORY Basophils % 0.2 % [facility] LABORATORY Basophils Abs 0.0 0.0 - 0.1 [facility] x10(3)/[facility] LABORATORY Immature Gran % 0.70 % [facility] LABORATORY Comment: Immature granulocytes(IG's)percentage an d absolute count will include metamyelocytes, myelocytes, and promyelo cytes. Blood smears from CBCs yielding IG's will be scanned manually for concor dance. If this scan disagrees with the automated IG or if promyelocytes are not ed, a manual differential will be performed. Melisa Gran Abs 0.08 (H) 0.00 - 0.04 x10(3)/[facility] LABORATORY Specimen Anatomical Collection Method Collection Time Receive d Time (Source) Location / / Volume Laterality Blood specimen 07/10/2017 4:28 AM 017 4:36 (specimen) EST AM EST Resulting Agency Comment Spec In Lab Yuan Webber MD HEMATOLOGY ORDERABLES Performing Organization Address City/State/ZIP Code Phon e Number [place] [id number] (ABNORMAL) Hemogram (07/10/2017 4:28 AM EST) Analysis Performed At Patho logist Time Signature WBC 12.2 (H) 4.0 - 9.5 [facility] x10(3)/[facility] LABORATORY RBC 3.31 (L) 4.58 - [facility] 5.54 [facility] x10(6)/[facility] LABORATORY Hemoglobin 9.8 (L) 13.7 - [facility] 16.5 gm/dL [facility] LABORATORY Hematocrit 30.0 (L) 40.5 - [facility] 48.5 % [facility] LAB[facility]ATORY MCV 90.6 82.9 - [facility] 93.1 [facility] LABORATORY MCH 29.6 27.5 - [facility] 32.1 pg [facility] LABORATORY MCHC 32.7 32.0 - [facility] 35.7 gm/dL [facility] Platelets 135 (L) 145 - 357 [facility] x10(3)/[facility] LABORATORY RDWSD 50.8 (H) 36.0 - [facility] 45.0 [facility] LABORATORY RDWCV 15.4 (H) 11.4 - [facility] 13.8 % [facility] MPV 10.0 7.6 - 12.9 [facility] LABORATORY nRBC % Auto 0.0 % [facility] nRBC Abs Auto 0.000 0.000 - [facility] 0.000 [facility] x10(3)/[facility] LABORATORY Specimen Anatomical Collection Method Collection Time Receive d Time (Source) Location / / Volume Laterality Blood specimen 07/10/2017 4:28 AM 017 4:36 (specimen) EST AM EST Resulting Agency Comment Spec In Lab Yuan Webber MD HEMATOLOGY ORDERABLES Performing Organization Address City/State/ZIP [place] [address] (ABNORMAL) Basic Metabolic Panel (non-fasting) (07/10/2017 4:28 AM EST) P athologist Signature Glucose Lvl 178 65 - 199 [facility] mg/dL [facility] Comment: Diabetes: >=200 mg/dL plus symp toms BUN 20 10 - 20 mg/dL [facility] Creatinine 1.19 0.80 - 1.50 mg/dL [facility] Sodium 143 135 - 145 mmol/L [facility] Potassium 4.6 3.5 - 5.0 mmol/L [facility] Comment: Please note: ??Patients with WBC >100,00 0 may have falsely elevated Potassium levels. ??For accurate Potassium quantif ication in these patients send serum separator tube (gold top) for subsequent determinations. ??Contact the Clinical Chemistry Laboratory if there are any qu estions. Chloride 107 98 - 107 mmol/L [facility] CO2 21 (L) 22 - 31 mmol/L [facility] Anion Gap 15 5 - 15 mmol/L [facility] Calcium 7.4 (L) 8.5 - 10.5 mg/dL [facility] Estimated GFR 60 >=60 [facility] Comment: The reported eGFR should be multiplied b y 1.2 for patients. The MDRD is not an appropriate measure o f renal function for patients with body mass extremes or in patients with acute kidney failure. http://Snapshot Interactive/DHnkdep http://Snapshot Interactive/DHMCnkf Specimen Anatomical Collection Method Collection Time Receive d Time (Source) Location / / Volume Laterality Blood specimen 07/10/2017 4:28 AM 017 4:36 (specimen) EST AM EST Resulting Agency Comment Spec In Lab Yuan Webber MD CHEMISTRY ORDERABLES Performing Organization Address City/State/[place] [address] POCT Glucose (07/10/2017 4:26 AM EST) P athologist Signature POC Glucose 176 65 - 199 [facility] mg/dL [facility] [...] Address City/[facility]/ZIP [place] [address] (ABNORMAL) POCT Glucose (07/10/2017 3:06 AM EST) P athologist Signature POC Glucose 204 (H) 65 - 199 [facility] mg/dL [facility] Comment: [...] Address City/[facility]/ZIP [place] [address] (ABNORMAL) POCT Glucose (07/10/2017 2:10 AM EST) P athologist Signature POC Glucose 203 (H) 65 - 199 [facility] mg/dL [facility] Comment: [...] Address City/State/ZIP [place] [address] POCT Glucose (07/10/2017 1:09 AM EST) P athologist Signature POC Glucose 196 65 - 199 [facility] mg/dL [facility] Comment: [...] Address City/State/ZIP Code Phon e Number [address] POCT Glucose (07/10/2017 12:10 AM EST) P athologist Signature POC Glucose 173 65 - 199 [facility] mg/dL [facility] Comment: [...] Address City/State/ZIP Code Phon e Number [address] POCT Glucose (07/09/2017 11:01 PM EST) P athologist Signature POC Glucose 140 65 - 199 [facility] mg/dL [facility] Comment: [...] Address City/State/ZIP [place] [address] POCT Glucose (07/09/2017 10:05 PM EST) P athologist Signature POC Glucose 144 65 - 199 [facility] mg/dL [facility] Comment: [...] Address City/[facility]/ZIP Code Phon e Number [address] POCT Glucose (07/09/2017 9:31 PM EST) athologist Signature POC Glucose 121 65 - 199 [facility] mg/dL [facility] Comment: [...] Address City/[facility]/ZIP Code Phon e Number [address] POCT Glucose (07/09/2017 9:03 PM EST) athologist Signature POC Glucose 98 65 - 199 [facility] mg/dL [facility] Comment: [...] Address City/State/ZIP Code Phon e Number [address] POCT Glucose (07/09/2017 8:09 PM EST) athologist Signature POC Glucose 117 65 - 199 [facility] SU mg/dL [facility] Comment: [...] Address City/State/ZIP [place] [address] POCT Glucose (07/09/2017 5:40 PM EST) athologist Signature POC Glucose 155 65 - 199 [facility] mg/dL [facility] Comment: [...] Address City/State/ZIP [place] [address] POCT Glucose (07/09/2017 4:24 PM EST) athologist Signature POC Glucose 164 65 - 199 [facility] mg/dL [facility] Comment: [...] Address City/State/ZIP [place] [address] POCT Glucose (07/09/2017 3:19 PM EST) athologist Signature POC Glucose 166 65 - 199 [facility] mg/dL [facility] Comment: [...] Address City/State/ZIP [place] [address] POCT Glucose (07/09/2017 2:26 PM EST) athologist Signature POC Glucose 179 65 - 199 [facility] mg/dL [facility] Comment: [...] Address City/[facility]/ZIP [place] [address] (ABNORMAL) POCT Glucose (07/09/2017 1:29 PM EST) athologist Signature POC Glucose 210 (H) 65 - 199 [facility] mg/dL [facility] Comment: [...] Address City/[facility]/ZIP [place] [address] POCT Glucose (07/09/2017 12:20 PM EST) athologist Signature POC Glucose 172 65 - 199 [facility] mg/dL [facility] Comment: [...] Address City/State/ZIP Code Phon e Number [address] POCT Glucose (07/09/2017 11:24 AM EST) P athologist Signature POC Glucose 156 65 - 199 [facility] mg/dL [facility] Comment: [...] Address City/State/ZIP Code Phon e Number [address] POCT Glucose (07/09/2017 11:11 AM EST) athologist Signature POC Glucose 172 65 - 199 [facility] mg/dL [facility] Comment: [...] Address City/State/ZIP Code Phon e Number [address] POCT Glucose (07/09/2017 10:08 AM EST) P athologist Signature POC Glucose 176 65 - 199 [facility] mg/dL [facility] Comment: [...] Organization Address City/State/[place] [address] POCT Glucose (07/09/2017 8:02 AM EST) P athologist Signature POC Glucose 178 65 - 199 [facility] mg/dL [facility] Comment: Supplemental ranges: <140 mg/dL before meals <180 mg/dL all other times of the day Specimen Anatomical Collection Method Collection Time Receive d Time (Source) Location / / Volume Laterality Blood specimen 07/09/2017 8:02 AM 017 8:02 (specimen) EST AM EST Yuan Webebr MD POINT OF CARE TEST ORDERABLE S Performing Organization Address City/State/[place] [address] (ABNORMAL) BLOOD GAS 2 ARTERIAL (07/09/2017 5:37 AM EST) Analysis Performed At Patho logist Time Signature pH Art 7.36 7.35 - [facility] 7.45 [facility] pCO2 Art 38 35 - 45 [facility] mmHg [facility] pO2 Art 79 (L) 85 - 104 [facility] LABORATORY HCO3 Art 20.9 20.0 - [facility] 26.0 [facility] mmol/L [facility] LABORATORY BE Art -4.6 (L) -3.0 - 3.0 [facility] mmol/L [facility] Hgb Blood Gas 10.5 (L) 13.7 - [facility] 16.5 gm/dL [facility] O2HB Art 93.8 (L) 94.0 - [facility] 97.0 % [facility] COHB Art 0.3 % [facility] Comment: Nonsmokers: 0.5-1.5% COHB Smokers: Variable, but usually less than 10% Toxic: 20-30% COHB Lethal: Greater than 60% COHB METHB Art 0.6 <=1.5 % [facility] LABORATORY Na Whole Blood 141 135 - 145 mmol/L [facility] K Whole Blood 4.5 3.5 - 5.0 mmol/L [facility] Comment: Please note: Patients with WBC >100,000 may have falsely elevated Potassium levels. Contact the Clinical Chemistry L aboratory if there are any questions. ICa Whole Blood 1.01 (L) 1.15 - 1.33 mmol/L [facility] Comment: Note: ??Total bilirubin higher than 20 m g/dL may lead to falsely low ionized calcium. CL Whole Blood 113 (H) 98 - 107 mmol/L [facility] Gluc Whole Bld 175 65 - 199 mg/dL [facility] Comment: Diabetes: >=200 mg/dL plus symp toms. Lactate WB 1.0 0.5 - 2.2 mmol/L [facility] FIO2 Art 40 % [facility]OR[facility] PF Ratio Art 198 [facility] LABOR[facility]ORY Specimen Anatomical Collection Method Collection Time Receive d Time (Source) Location / / Volume Laterality Blood specimen 07/09/2017 5:37 AM 017 5:37 (specimen) EST AM EST Yuan Webber MD CHEMISTRY ORDERABLES Performing Organization Address City/[facility]/ZIP Code Phon e Number [address] POCT Glucose (07/09/2017 3:27 AM EST) athologist Signature POC Glucose 192 65 - 199 [facility] mg/dL [facility]OR[facility]ORY [...] Address City/[facility]/ZIP [place] [address] (ABNORMAL) Basic Metabolic Panel (non-fasting) (07/09/2017 2:30 AM EST) P athologist Signature Glucose Lvl 179 65 - 199 [facility] mg/dL [facility] Comment: Diabetes: >=200 mg/dL plus symp toms BUN 17 10 - 20 mg/dL [facility] Creatinine 1.34 0.80 - 1.50 mg/dL [facility] Sodium 144 135 - 145 mmol/L [facility] Potassium Not Perf 3.5 - 5.0 mmol/L [facility] Comment: Duplicate order Please note: ??Patients with WBC >100,00 0 may have falsely elevated Potassium levels. ??For accurate Potassium quantif ication in these patients send serum separator tube (gold top) for subsequent determinations. ??Contact the Clinical Chemistry Laboratory if there are any qu estions. Chloride 111 (H) 98 - 107 mmol/L [facility] CO2 21 (L) 22 - 31 mmol/L [facility] Anion Gap 12 5 - 15 mmol/L [facility] Calcium 7.1 (L) 8.5 - 10.5 mg/dL [facility] Comment: result rechecked-JLK Estimated GFR 53 (L) >=60 [facility] Comment: The reported eGFR should be multiplied b y 1.2 for patients. The MDRD is not an appropriate measure o f renal function for patients with body mass extremes or in patients with acute kidney failure. http://Snapshot Interactive/DHnkdep http://Snapshot Interactive/DHMCnkf Specimen Anatomical Collection Method Collection Time Receive d Time (Source) Location / / Volume Laterality Blood specimen Venous Draw / 07/09/2017 2:30 AM 2016 2:42 (specimen) Unknown EST AM EST Resulting Agency Comment Spec In Lab Yuan Webber MD CHEMISTRY ORDERABLES Performing Organization Address City/State/[place] [address] (ABNORMAL) Potassium (07/09/2017 2:30 AM EST) P athologist Signature Potassium 5.1 (H) 3.5 - 5.0 [facility] mmol/L [facility] Comment: Please note: ??Patients with [...] Organization Address City/State/[place] [address] (ABNORMAL) Hemogram (07/09/2017 2:30 AM EST) Analysis Performed At Patho logist Time Signature WBC 12.5 (H) 4.0 - 9.5 [facility](3[facility] LABORATORY RBC 3.38 (L) 4.58 - [facility] SU 5.54 [facility] x10(6)/[facility] LABORATORY Hemoglobin 10.1 (L) 13.7 - [facility] SU 16.5 gm/dL [facility] Hematocrit 30.3 (L) 40.5 - [facility] SU 48.5 % [facility] MCV 89.6 82.9 - [facility] 93.1 [facility] LABORATORY MCH 29.9 27.5 - [facility] 32.1 pg [facility] MCHC 33.3 32.0 - [facility] 35.7 gm/dL [facility] Platelets 127 (L) 145 - 357 [facility](3[facility] LABORATORY RDWSD 49.3 (H) 36.0 - [facility] 45.0 [facility] LABORATORY RDWCV 15.2 (H) 11.4 - [facility] 13.8 % [facility] MPV 9.9 7.6 - 12.9 [facility] LABORATORY nRBC % Auto 0.0 % [facility] nRBC Abs Auto 0.000 0.000 - [facility] 0.000 [facility] x10(3)/[facility] LABORATORY Specimen Anatomical Collection Method Collection Time Receive d Time (Source) Location / / Volume Laterality Blood specimen 07/09/2017 2:30 AM 017 2:41 (specimen) EST AM EST Resulting Agency Comment Spec In Lab Yuan Webber MD HEMATOLOGY ORDERABLES Performing Organization Address City/[facility]/ZIP [place] [address] POCT Glucose (07/09/2017 2:10 AM EST) P athologist Signature POC Glucose 169 65 - 199 [facility] mg/dL [facility] Comment: [...] Address City/[facility]/ZIP [place] [address] POCT Glucose (07/09/2017 1:01 AM EST) P athologist Signature POC Glucose 173 65 - 199 [facility] mg/dL [facility] Comment: [...] Address City/[facility]/ZIP [place] [address] Blood culture (07/09/2017 12:40 AM EST) Patholo gist Method Time Signature Blood Culture No growth [facility] at 5 days. [facility] Specimen Anatomical Collection Method Collection Time Receive d Time (Source) Location / / Volume Laterality Blood specimen STRUCTURE OF RIGHT 07/09/2017 12:40 3:58 (specimen) UPPER LIMB / AM EST AM EST Unknown Resulting Agency Comment Spec In Lab Yuan Webber MD MICROBIOLOGY - BLOOD ORDERAB LES Performing Organization Address City/State/ZIP [place] [address] Blood culture (07/09/2017 12:30 AM EST) [facility] Method Time Signature Blood Culture No growth [facility]IS at 5 days. [facility] Specimen Anatomical Collection Method Collection Time Receive d Time (Source) Location / / Volume Laterality Blood specimen STRUCTURE OF LEFT 07/09/2017 12:30 1211/2016 3:59 (specimen) UPPER LIMB / AM EST AM EST Unknown Resulting Agency Comment Spec In Lab Yuan Webber MD MICROBIOLOGY - BLOOD ORDERAB LES Performing Organization Address City/[facility]/ZIP [place] [address] (ABNORMAL) Urinalysis Microscopic Exam (07/09/2017 12:05 AM EST) Analysis Performed At Patho logist Time Signature RBC UA 32 (H) 0 - 3 /HPF [facility] WBC UA 5 (H) 0 - 3 /HPF [facility] Squam Epith UA <1 <=4 /HPF [facility] Hyaline Cast 17 (H) 0 - 2 /LPF [facility] Gran Cast UA 1 (H) <=0 /LPF [facility] Uric Ac Bianca Rare (A) None /HPF [facility] Specimen (Source) Anatomical Collection Method Collection Time Re ceived Time Location / / Volume Laterality Urine specimen 07/09/2017 12:05 7 obtained via AM EST 12:39 AM EST indwelling urinary catheter (specimen) Resulting Agency Comment Spec In Lab Yuan Webber MD URINE ORDERABLES Performing Organization Address City/[facility]/ZIP [place] [address] (ABNORMAL) Urinalysis with reflex Culture (07/09/2017 12:05 AM EST) [facility] [employer] Method Time Signature Glucose UA Negative Negative [facility] mg/dL [facility] Protein UA 30 (A) Negative [facility] mg[facility]dL [facility] Bilirubin UA Negative Negative [facility]dL [facility] Comment: Clinical correlation required for positi ve Urine Bilirubin results as false positive may occur with some drugs and d rug related products. If a false positive is suspected a serum total bili yeager should be considered if clinically indicated. Urobilinogen UA Normal Normal mg/dL [facility] pH UA 5.0 5.0 - 8.0 [facility]ORY Blood UA Moderate (A) Negative mg/dL [facility] Ketones UA Negative Negative mg/dL [facility] Nitrite UA Negative Negative [facility] Leukocytes UA Negative Negative [facility] LABORATORY Appearance UA Hazy (A) Clear [facility] Spec Lookout UA 1.025 1.002 - 1.030 [facility] Color UA Yellow Yellow [facility] LABORATORY Culture Reflexed No [facility] Specimen (Source) Anatomical Collection Method Collection Time Re ceived Time Location / / Volume Laterality Urine specimen 07/09/2017 12:05 7 obtained via AM EST 12:39 AM EST indwelling urinary catheter (specimen) Resulting Agency Comment Spec In Lab Yuan Webber MD URINE ORDERABLES Performing Organization Address City/State/[place] [address] POCT Glucose (07/08/2017 11:01 PM EST) P athologist Signature POC Glucose 191 65 - 199 [facility]dL [facility] Comment: [...] Address City/State/ZIP [place] [address] POCT Glucose (07/08/2017 10:04 PM EST) athologist Signature POC Glucose 198 65 - 199 [facility] mg/dL [facility] Comment: [...] Address City/State/ZIP [place] [address] Prepare Albumin 5% in 250 mL (07/08/2017 8:49 PM EST) athologist Signature Dispensed? Yes [facility] Specimen Anatomical Collection Method Collection Time Receive d Time (Source) Location / / Volume Laterality Blood specimen No Charge / 07/08/2017 8:49 PM 017 8:51 (specimen) Unknown EST PM EST Resulting Agency Comment Spec In Lab [facility] ORDERABLES Performing Organization Address City/State/ZIP [place] [address] POCT Glucose (07/08/2017 8:28 PM EST) athologist Signature POC Glucose 195 65 - 199 [facility] mg/dL [facility] Comment: [...] Address City/State/ZIP [place] [address] (ABNORMAL) POCT Glucose (07/08/2017 7:13 PM EST) P athologist Signature POC Glucose 220 (H) 65 - 199 [facility]/dL [facility] Comment: [...] Address City/State/ZIP Code Phon e Number [address] POCT Glucose (07/08/2017 5:04 PM EST) athologist Signature POC Glucose 147 65 - 199 [facility] mg[facility]dL [facility] Comment: [...] Address City/State/ZIP [place] [address] (ABNORMAL) BLOOD GAS 2 ARTERIAL (07/08/2017 4:13 PM EST) Analysis Performed At Patho logist Time Signature pH Art 7.38 7.35 - [facility] 7.45 [facility] LABORATORY pCO2 Art 36 35 - 45 [facility] LABORATORY pO2 Art 91 85 - 104 [facility] LABORATORY HCO3 Art 20.9 20.0 - [facility] 26.0 [facility] mmol/L [facility] LABORATORY BE Art -4.2 (L) -3.0 - 3.0 [facility] mmol/L [facility] Hgb Blood Gas 11.7 (L) 13.7 - [facility] 16.5 gm/dL [facility] O2HB Art 95.1 94.0 - [facility] 97.0 % [facility] COHB Art 0.6 % [facility] Comment: Nonsmokers: 0.5-1.5% COHB Smokers: Variable, but usually less than 10% Toxic: 20-30% COHB Lethal: Greater than 60% COHB METHB Art 0.6 <=1.5 % [facility] LABORATORY Na Whole Blood 139 135 - 145 mmol/L [facility] K Whole Blood 4.2 3.5 - 5.0 mmol/L [facility] Comment: Please note: Patients with WBC >100,000 may have falsely elevated Potassium levels. Contact the Clinical Chemistry L aboratory if there are any questions. ICa Whole Blood 1.05 (L) 1.15 - 1.33 mmol/L [facility] Comment: Note: ??Total bilirubin higher than 20 m g/dL may lead to falsely low ionized calcium. CL Whole Blood 110 (H) 98 - 107 mmol/L [facility] Gluc Whole Bld 155 65 - 199 mg/dL [facility] Comment: Diabetes: >=200 mg/dL plus symp toms. Lactate WB 1.4 0.5 - 2.2 mmol/L [facility] FIO2 Art 40 % [facility] LABORATORY PF Ratio Art 228 [facility] Specimen Anatomical Collection Method Collection Time Receive d Time (Source) Location / / Volume Laterality Blood specimen 07/08/2017 4:13 PM 017 4:13 (specimen) EST PM EST Yuan Webber MD CHEMISTRY ORDERABLES Performing Organization Address City/State/[place] [address] POCT Glucose (07/08/2017 4:01 PM EST) P athologist Signature POC Glucose 148 65 - 199 [facility] mg/dL [facility] LABORATORY [...] Address City/State/ZIP Code Phon e Number [address] POCT Glucose (07/08/2017 3:21 PM EST) athologist Signature POC Glucose 118 65 - 199 [facility] mg/dL [facility] Comment: [...] Address City/[facility]/ZIP Code Phon e Number [address] POCT Glucose (07/08/2017 2:01 PM EST) athologist Signature POC Glucose 129 65 - 199 [facility] mg/dL [facility] Comment: [...] Address City/State/ZIP [place] [address] POCT Glucose (07/08/2017 11:53 AM EST) athologist Signature POC Glucose 156 65 - 199 [facility] mg/dL [facility] [facility] Comment: [...] Address City/State/ZIP Code Phon e Number [address] POCT Glucose (07/08/2017 11:04 AM EST) athologist Signature POC Glucose 181 65 - 199 [facility] Comment: [...] Address City/[facility]/[place]IP [place] [address] (ABNORMAL) POCT Glucose (07/08/2017 9:24 AM EST) athologist Signature POC Glucose 203 (H) 65 - 199 [facility] mg[facility]dL [facility] Comment: [...] Address City/[facility]/[place]IP [place] [address] APTT (07/08/2017 8:40 AM EST) athologist Signature PTT 33 25 - 35 sec [facility] Comment: The recommended therapeutic range for fu ll dose, unfractionated heparin at [facility] is 80 ? 114 seconds. The use [...] Address City/[facility]/[place] [address] (ABNORMAL) Prothrombin Time (07/08/2017 8:40 AM EST) P athologist Signature PT 15.6 (H) 11.8 - 14.0 [facility] LABORATORY INR 1.3 (H) 0.9 - 1.1 [facility] Comment: An INR [...] Address City/[facility]/[place] [address] (ABNORMAL) POCT Glucose (07/08/2017 7:38 AM EST) P athologist Signature POC Glucose 232 (H) 65 - 199 [facility] mg/dL [facility] [...] Address City/State/[place]IP [place] [address] (ABNORMAL) POCT Glucose (07/08/2017 7:07 AM EST) athologist Signature POC Glucose 234 (H) 65 - 199 [facility] mg/dL [facility] Comment: [...] Address City/State/[place] [address] (ABNORMAL) POCT Glucose (07/08/2017 6:04 AM EST) athologist Signature POC Glucose 225 (H) 65 - 199 [facility] mg/dL [facility] Comment: [...] Address City/State/[place] [address] (ABNORMAL) POCT Glucose (07/08/2017 5:31 AM EST) athologist Signature POC Glucose 216 (H) 65 - 199 [facility] mg/dL [facility] Comment: [...] Address City/State/[place] [address] (ABNORMAL) POCT Glucose (07/08/2017 4:52 AM EST) P athologist Signature POC Glucose 257 (H) 65 - 199 [facility] mg/dL [facility] [...] Organization Address City/State/[place] [address] (ABNORMAL) BLOOD GAS 2 ARTERIAL (07/08/2017 4:04 AM EST) Analysis Performed At Patho logist Time Signature pH Art 7.30 (L) 7.35 - [facility] 7.45 [facility] pCO2 Art 41 35 - 45 [facility] LABORATORY pO2 Art 83 (L) 85 - 104 [facility] LABORATORY HCO3 Art 19.6 (L) 20.0 - [facility] 26.0 [facility] mmol/[facility] LABORATORY BE Art -6.8 (L) -3.0 - 3.0 [facility] mmol/L [facility] Hgb Blood Gas 12.2 (L) 13.7 - [facility] 16.5 gm/dL [facility] O2HB Art 93.5 (L) 94.0 - [facility] 97.0 % [facility] COHB Art 0.4 % [facility] Comment: Nonsmokers: 0.5-1.5% COHB Smokers: Variable, but usually less than 10% Toxic: 20-30% COHB Lethal: Greater than 60% COHB METHB Art 0.8 <=1.5 % [facility] Na Whole Blood 138 135 - 145 mmol/L [facility] K Whole Blood 4.4 3.5 - 5.0 mmol/L [facility] Comment: Please note: Patients with WBC >100,000 may have falsely elevated Potassium levels. Contact the Clinical Chemistry L aboratory if there are any questions. ICa Whole Blood 1.05 (L) 1.15 - 1.33 mmol/L [facility] Comment: Note: ??Total bilirubin higher than 20 m g/dL may lead to falsely low ionized calcium. CL Whole Blood 107 98 - 107 mmol/L [facility] Gluc Whole Bld 274 (H) 65 - 199 mg/dL [facility] Comment: Diabetes: >=200 mg/dL plus symp toms. Lactate WB 4.4 (Critical) 0.5 - 2.2 mmol/L [facility] Comment: Noted by instrument panel assembler. FIO2 Art 40 % [facility] PF Ratio Art 208 [facility] Specimen Anatomical Collection Method Collection Time Receive d Time (Source) Location / / Volume Laterality Blood specimen 07/08/2017 4:04 AM 017 4:04 (specimen) EST AM EST Daphne Shahid MD CHEMISTRY ORDERABLES Performing Organization Address City/State/ZIP [place] [address] Scan, Peripheral Blood (07/08/2017 4:00 AM EST) P athologist Signature Plat Estimate Normal [facility] RBC Morphology Normal [facility] Specimen Anatomical Collection Method Collection Time Receive d Time (Source) Location / / Volume Laterality Blood specimen 07/08/2017 4:00 AM 017 4:09 (specimen) EST AM EST Resulting Agency Comment Spec In Lab Yuan Webber MD HEMATOLOGY ORDERABLES Performing Organization Address City/[facility]/ZIP [place] [address] (ABNORMAL) Differential, Automated (07/08/2017 4:00 AM EST) Patholo gist Method Time Signature Neutrophils % 85.4 % [facility] Neutr Abs (ANC) 16.07 (H) 1.70 - [facility] 6.10 [facility] x10(3)/[facility] L LABORATORY Lymphocytes % 3.5 % [facility] Lymphocytes Abs 0.6 (L) 0.9 - 3.2 [facility] x10(3)/[facility] LABORATORY Monocytes % 10.4 % [facility] Monocyte Abs 2.0 (H) 0.3 - 0.9 [facility] x10(3)/[facility] LABORATORY Eosinophils % 0.0 % [facility] Eosinophils Abs 0.0 0.0 - 0.4 [facility] x10(3)/[facility] LABORATORY Basophils % 0.1 % [facility] Basophils Abs 0.0 0.0 - 0.1 [facility] x10(3)/[facility] LABORATORY Immature Gran % 0.60 % [facility] Comment: Immature granulocytes(IG's)percentage an d absolute count will include metamyelocytes, myelocytes, and promyelo cytes. Blood smears from CBCs yielding IG's will be scanned manually for concor dance. If this scan disagrees with the automated IG or if promyelocytes are not ed, a manual differential will be performed. Melisa Gran Abs 0.12 (H) 0.00 - 0.04 x10(3)/[facility] LABORATORY Specimen Anatomical Collection Method Collection Time Receive d Time (Source) Location / / Volume Laterality Blood specimen 07/08/2017 4:00 AM 017 4:09 (specimen) EST AM EST Resulting Agency Comment Spec In Lab Yuan Webber MD HEMATOLOGY ORDERABLES Performing Organization Address City/State/[place] [address] (ABNORMAL) Hemogram (07/08/2017 4:00 AM EST) Analysis Performed At Patho logist Time Signature WBC 18.8 (H) 4.0 - 9.5 [facility] x10(3)/[facility] LABORATORY RBC 4.00 (L) 4.58 - [facility] 5.54 [facility] x10(6)/[facility] LABORATORY Hemoglobin 11.9 (L) 13.7 - [facility] 16.5 gm/dL [facility] Hematocrit 35.9 (L) 40.5 - [facility] 48.5 % [facility] MCV 89.8 82.9 - [facility] 93.1 [facility] LABORATORY MCH 29.8 27.5 - [facility] OLIVASCK 32.1 pg [facility] MCHC 33.1 32.0 - [facility] 35.7 gm/dL [facility] Platelets 232 145 - 357 [facility] x10(3)/[facility] LABORATORY RDWSD 47.6 (H) 36.0 - [facility] 45.0 [facility] LABORATORY RDWCV 14.5 (H) 11.4 - [facility] 13.8 % [facility] MPV 9.5 7.6 - 12.9 [facility] LABORATORY nRBC % Auto 0.0 % [facility] nRBC Abs Auto 0.000 0.000 - [facility] 0.000 [facility] x10(3)/[facility] LABORATORY Specimen Anatomical Collection Method Collection Time Receive d Time (Source) Location / / Volume Laterality Blood specimen 07/08/2017 4:00 AM 017 4:09 (specimen) EST AM EST Resulting Agency Comment Spec In Lab Yuan Webber MD HEMATOLOGY ORDERABLES Performing Organization Address City/State/[place] [address] (ABNORMAL) Electrolytes panel (07/08/2017 4:00 AM EST) P athologist Signature Sodium 139 135 - 145 [facility] mmol/L [facility] Potassium 4.7 3.5 - 5.0 [facility] mmol/L [facility] Comment: result rechecked-JLK Please note: ??Patients with WBC >100,00 0 may have falsely elevated Potassium levels. ??For accurate Potassium quantif ication in these patients send serum separator tube (gold top) for subsequent determinations. ??Contact the Clinical Chemistry Laboratory if there are any qu estions. Chloride 104 98 - 107 mmol/L [facility] CO2 21 (L) 22 - 31 mmol/L [facility] Anion Gap 14 5 - 15 mmol/L [facility] Specimen Anatomical Collection Method Collection Time Receive d Time (Source) Location / / Volume Laterality Blood specimen 07/08/2017 4:00 AM 017 4:10 (specimen) EST AM EST Resulting Agency Comment Spec In Lab Yuan Webber MD CHEMISTRY ORDERABLES Performing Organization Address City/State/[place] [address] (ABNORMAL) Cardiac Enzymes (LEB/CGP) (07/08/2017 4:00 AM EST) P athologist Signature Troponin-T 1.88 (H) 0.00 - [facility] 0.00 ng/mL [facility] Comment: The 99th percentile for Troponin T is le ss than 0.01 ng/mL, any detectable cTnT concentration using this assay should be considered elevated. According to the third universal definit ion of myocardial infarction the following criteria with a clinical prese ntation consistent with acute myocardial ischemia meets the diagnosis for a myocardial infarction (NM). Detection of a rise and/or fall of [...] additional sample may be indicated. Reference: Third [place] Definition of Myocardial Infarction. Journal of the [place] [employer] 2012;60:1581-98 CK, Total 413 (H) 0 - 200 unit/L [facility] Comment: result rechecked-JLK Specimen Anatomical Collection Method Collection Time Receive d Time (Source) Location / / Volume Laterality Blood specimen 07/08/2017 4:00 AM 017 4:09 (specimen) EST AM EST Resulting Agency Comment Spec In Lab Yuan Webber MD CHEMISTRY ORDERABLES Performing Organization Address City/[facility]/ZIP Code Phon e Number [address] (ABNORMAL) Glucose, fasting (07/08/2017 4:00 AM EST) P athologist Signature Glucose 287 (H) 65 - 99 [facility] Fasting mg/dL [facility] Comment: ?Fasting* Glucose Interpretive C [...] of Diabetes Mellitus, Position Statement from the [place] [employer]. ??Diabete s Care, Volume 33, Supplement 1, Jul 2009 Specimen Anatomical Collection Method Collection Time Receive d Time (Source) Location / / Volume Laterality Blood specimen 07/08/2017 4:00 AM 017 4:09 (specimen) EST AM EST Resulting Agency Comment Spec In Lab Yuan Webber MD CHEMISTRY ORDERABLES Performing Organization Address City/[facility]/ZIP [place] [address] (ABNORMAL) Creatinine (07/08/2017 4:00 AM EST) Analysis Performed At Patho logist Time Signature Creatinine 1.55 (H) 0.80 - [facility] 1.50 mg/dL [facility] Estimated GFR 44 (L) >=60 [facility] Comment: The reported eGFR should be multiplied b y 1.2 for patients. The MDRD is not an appropriate measure o f renal function for patients with body mass extremes or in patients with acute kidney failure. http://Cycle.uTaP/DHnkdep http://Cycle.uTaP/DHMCnkf Specimen Anatomical Collection Method Collection Time Receive d Time (Source) Location / / Volume Laterality Blood specimen 07/08/2017 4:00 AM 017 4:09 (specimen) EST AM EST Resulting Agency Comment Spec In Lab Yuan Webber MD CHEMISTRY ORDERABLES Performing Organization Address City/[facility]/ZIP [place] [address] BUN (07/08/2017 4:00 AM EST) athologist Signature BUN 16 10 - 20 [facility] mg/dL [facility] Specimen Anatomical Collection Method Collection Time Receive d Time (Source) Location / / Volume Laterality Blood specimen 07/08/2017 4:00 AM 017 4:09 (specimen) EST AM EST Resulting Agency Comment Spec In Lab Yuan Webber MD CHEMISTRY ORDERABLES Performing Organization Address City/[facility]/ZIP [place] [address] (ABNORMAL) POCT Glucose (07/08/2017 3:00 AM EST) athologist Signature POC Glucose 273 (H) 65 - 199 [facility] mg/dL [facility] Comment: [...] Address City/[facility]/ZIP [place] [address] (ABNORMAL) POCT Glucose (07/08/2017 1:57 AM EST) athologist Signature POC Glucose 288 (H) 65 - 199 [facility] mg/dL [facility] Comment: [...] Address City/State/ZIP [place] [address] (ABNORMAL) POCT Glucose (07/08/2017 1:01 AM EST) P athologist Signature POC Glucose 315 (H) 65 - 199 [facility] mg/dL [facility] [...] Address City/[facility]/ZIP [place] [address] (ABNORMAL) BLOOD GAS 2 ARTERIAL (07/08/2017 12:09 AM EST) P athologist Signature pH Art 7.26 7.35 - [facility] (Critical) 7.45 [facility] Comment: Noted by instrument panel assembler. pCO2 Art 41 35 - 45 mmHg [facility] pO2 Art 96 85 - 104 mmHg [facility] HCO3 Art 17.7 (L) 20.0 - 26.0 mmol/L [facility] BE Art -9.4 (L) -3.0 - 3.0 mmol/L [facility] Hgb Blood Gas 12.4 (L) 13.7 - 16.5 gm/dL [facility] O2HB Art 94.7 94.0 - 97.0 % [facility] COHB Art 0.2 % [facility] Comment: Nonsmokers: 0.5-1.5% COHB Smokers: Variable, but usually less than 10% Toxic: 20-30% COHB Lethal: Greater than 60% COHB METHB Art 0.6 <=1.5 % [facility] Na Whole Blood 141 135 - 145 mmol/L [facility] K Whole Blood 3.5 3.5 - 5.0 mmol/L [facility] Comment: Please note: Patients with WBC >100,000 may have falsely elevated Potassium levels. Contact the Clinical Chemistry L aboratory if there are any questions. ICa Whole Blood 1.03 (L) 1.15 - 1.33 mmol/L [facility] Comment: Note: ??Total bilirubin higher than 20 m g/dL may lead to falsely low ionized calcium. CL Whole Blood 109 (H) 98 - 107 mmol/L [facility] Gluc Whole Bld 315 (H) 65 - 199 mg/dL [facility] Comment: Diabetes: >=200 mg/dL plus symp toms. Lactate WB 7.6 (Critical) 0.5 - 2.2 mmol/L [facility] Comment: Noted by instrument panel assembler. FIO2 Art 40 % [facility] PF Ratio Art 240 [facility] Specimen Anatomical Collection Method Collection Time Receive d Time (Source) Location / / Volume Laterality Blood specimen Arterial Draw / 07/08/2017 12:09 2016 5:31 (specimen) Unknown AM EST AM EST Resulting Agency Comment Spec In Lab Samy Maldonado MD CHEMISTRY ORDERABLES Performing Organization Address City/State/[place] [address] (ABNORMAL) POCT Glucose (07/07/2017 10:56 PM EST) P athologist Signature POC Glucose 292 (H) 65 - 199 [facility] mg/dL [facility] [...] Organization Address City/State/[place] [address] (ABNORMAL) BLOOD GAS 2 ARTERIAL (07/07/2017 10:04 PM EST) P athologist Signature pH Art 7.22 7.35 - [facility] (Critical) 7.45 [facility] Comment: Noted by instrument panel assembler. pCO2 Art 42 35 - 45 mmHg [facility] pO2 Art 94 85 - 104 mmHg [facility] HCO3 Art 16.9 (L) 20.0 - 26.0 mmol/L [facility] BE Art -10.7 (L) -3.0 - 3.0 mmol/L [facility] Hgb Blood Gas 13.0 (L) 13.7 - 16.5 gm/dL [facility] O2HB Art 93.8 (L) 94.0 - 97.0 % [facility] COHB Art 0.7 % [facility] Comment: Nonsmokers: 0.5-1.5% COHB Smokers: Variable, but usually less than 10% Toxic: 20-30% COHB Lethal: Greater than 60% COHB METHB Art 0.7 <=1.5 % [facility] Na Whole Blood 140 135 - 145 mmol/L [facility] K Whole Blood 3.3 (L) 3.5 - 5.0 mmol/L [facility] Comment: Please note: Patients with WBC >100,000 may have falsely elevated Potassium levels. Contact the Clinical Chemistry L aboratory if there are any questions. ICa Whole Blood 1.07 (L) 1.15 - 1.33 mmol/L [facility] Comment: Note: ??Total bilirubin higher than 20 m g/dL may lead to falsely low ionized calcium. CL Whole Blood 107 98 - 107 mmol/L [facility] Gluc Whole Bld 304 (H) 65 - 199 mg/dL [facility] Comment: Diabetes: >=200 mg/dL plus symp toms. Lactate WB 8.2 (Critical) 0.5 - 2.2 mmol/L [facility] Comment: Noted by instrument panel assembler. FIO2 Art 40 % [facility] PF Ratio Art 235 [facility] Specimen Anatomical Collection Method Collection Time Receive d Time (Source) Location / / Volume Laterality Blood specimen 07/07/2017 10:04 7 (specimen) PM EST 10:04 PM EST Daphne Shahid MD CHEMISTRY ORDERABLES Performing Organization Address City/[facility]/ZIP Code Phon e Number [address] (ABNORMAL) Hemoglobin (07/07/2017 10:00 PM EST) P athologist Signature Hemoglobin 12.8 (L) 13.7 - [facility] 16.5 gm/dL [facility] Specimen Anatomical Collection Method Collection Time Receive d Time (Source) Location / / Volume Laterality Blood specimen 07/07/2017 10:00 7 (specimen) PM EST 10:13 PM EST Resulting Agency Comment Spec In Lab Yuan Webber MD HEMATOLOGY ORDERABLES Performing Organization Address City/[facility]/ZIP [place] [address] (ABNORMAL) Potassium (07/07/2017 10:00 PM EST) P athologist Signature Potassium 3.4 (L) 3.5 - 5.0 [facility] mmol/L [facility] Comment: Please note: ??Patients with [...] Address City/State/Z[place] [address] (ABNORMAL) POCT Glucose (07/07/2017 8:49 PM EST) P athologist Signature POC Glucose 241 (H) 65 - 199 [facility] mg/dL [facility] [...] Address City/[facility]/ZIP [place] [address] Prepare Albumin 5% in 250 mL (07/07/2017 8:03 PM EST) athologist Signature Dispensed? Yes [facility] Specimen Anatomical Collection Method Collection Time Receive d Time (Source) Location / / Volume Laterality Blood specimen No Charge / 07/07/2017 8:03 PM 017 8:04 (specimen) Unknown EST PM EST Resulting Agency Comment Spec In Lab Michael BROWN BLOOD BANK ORDERABLES Performing Organization Address City/[facility]/ZIP [place] [address] EKG 12 Lead (07/07/2017 7:17 PM EST) Component Value Ref Range Test Analysis Performed Pathologis t Method Time At Signature Ventricular rate 75 BPM MUSE SYSTEM Atrial Rate 75 BPM MUSE SYSTEM P-R Interval 168 ms MUSE SYSTEM QRS Duration 104 ms MUSE SYSTEM Q-T Interval 462 ms MUSE SYSTEM QTC Calculated 515 ms MUSE SYSTEM (Bezet) Calculated P [place] 52 degrees MUSE SYSTEM Calculated R [place] -40 degrees MUSE SYSTEM Calculated T [place] 39 degrees MUSE SYSTEM INTERPRETATION Normal sinus [...] athologist Signature pH Art 7.21 7.35 - [facility] (Critical) 7.45 [facility] Comment: Noted by instrument panel assembler. pCO2 Art 50 (H) 35 - 45 mmHg [facility] pO2 Art 238 (H) 85 - 104 mmHg [facility] HCO3 Art 19.8 (L) 20.0 - 26.0 mmol/L [facility] BE Art -8.1 (L) -3.0 - 3.0 mmol/L [facility] Hgb Blood Gas 12.8 (L) 13.7 - 16.5 gm/dL [facility] O2HB Art 97.5 (H) 94.0 - 97.0 % [facility] COHB Art 0.5 % [facility] Comment: Nonsmokers: 0.5-1.5% COHB Smokers: Variable, but usually less than 10% Toxic: 20-30% COHB Lethal: Greater than 60% COHB METHB Art 0.7 <=1.5 % [facility] Na Whole Blood 140 135 - 145 mmol/L [facility] K Whole Blood 3.0 (Critical) 3.5 - 5.0 mmol/L [facility] Comment: Noted by instrument panel assembler. Please note: Patients with WBC >100,000 may have falsely elevated Potassium levels. Contact the Clinical Chemistry L aboratory if there are any questions. ICa Whole Blood 1.07 (L) 1.15 - 1.33 mmol/L [facility] Comment: Note: ??Total bilirubin higher than 20 m g/dL may lead to falsely low ionized calcium. CL Whole Blood 107 98 - 107 mmol/L [facility] Gluc Whole Bld 270 (H) 65 - 199 mg/dL [facility] Comment: Diabetes: >=200 mg/dL plus symp toms. Lactate WB 4.9 (Critical) 0.5 - 2.2 mmol/L [facility] Comment: Noted by instrument panel assembler. FIO2 Art 100 % [facility] PF Ratio Art 238 [facility] Specimen Anatomical Collection Method Collection Time Receive d Time (Source) Location / / Volume Laterality Blood specimen 07/07/2017 6:57 PM 017 6:57 (specimen) EST PM EST Daphne Shahid MD CHEMISTRY ORDERABLES Performing Organization Address City/State/[place] [address] (ABNORMAL) BLOOD GAS 2 ARTERIAL (07/07/2017 5:31 PM EST) athologist Signature pH Art 7.29 7.35 - [facility] (Critical) 7.45 [facility] [facility] Comment: Noted by instrument panel assembler. pCO2 Art 48 (H) 35 - 45 mmHg [facility] pO2 Art 137 (H) 85 - 104 mmHg [facility] HCO3 Art 22.4 20.0 - 26.0 mmol/L [facility] BE Art -4.3 (L) -3.0 - 3.0 mmol/L [facility] Hgb Blood Gas 10.0 (L) 13.7 - 16.5 gm/dL [facility] O2HB Art 97.3 (H) 94.0 - 97.0 % [facility] COHB Art 0.3 % [facility] Comment: Nonsmokers: 0.5-1.5% COHB Smokers: Variable, but usually less than 10% Toxic: 20-30% COHB Lethal: Greater than 60% COHB METHB Art 0.3 <=1.5 % [facility] Na Whole Blood 132 (L) 135 - 145 mmol/L [facility] K Whole Blood 4.0 3.5 - 5.0 mmol/L [facility] Comment: Please note: Patients with WBC >100,000 may have falsely elevated Potassium levels. Contact the Clinical Chemistry L aboratory if there are any questions. ICa Whole Blood 1.14 (L) 1.15 - 1.33 mmol/L [facility] Comment: Note: ??Total bilirubin higher than 20 m g/dL may lead to falsely low ionized calcium. CL Whole Blood 105 98 - 107 mmol/L [facility] Gluc Whole Bld 293 (H) 65 - 199 mg/dL [facility] Comment: Diabetes: >=200 mg/dL plus symp toms. Lactate WB 3.1 (H) 0.5 - 2.2 mmol/L [facility] Specimen Anatomical Collection Method Collection Time Receive d Time (Source) Location / / Volume Laterality Blood specimen 07/07/2017 5:31 PM 017 5:31 (specimen) EST PM EST Daphne Shahid MD CHEMISTRY ORDERABLES Performing Organization Address City/[facility]/ZIP Code Phon e Number [address] Fibrinogen (07/07/2017 5:30 PM EST) P athologist Signature Fibrinogen 224 180 - 510 [facility] mg/dL [facility] Comment: Called by: JEET, Read [...] MD HEMATOLOGY ORDERABLES Performing Organization Address City/[facility] Phon e Number [address] APTT (07/07/2017 5:30 PM EST) P athologist Signature PTT 30 25 - 35 sec [facility] Comment: The recommended therapeutic range for fu ll dose, unfractionated heparin at [facility] is 80 ? 114 seconds. The use [...] Address City/[facility]/ZIP [place] [address] (ABNORMAL) Prothrombin Time (07/07/2017 5:30 PM EST) P athologist Signature PT 19.0 (H) 11.8 - 14.0 [facility] LABORATORY INR 1.6 (H) 0.9 - 1.1 [facility] Comment: An INR [...] Address City/[facility]/[place] [address] (ABNORMAL) Hemogram (07/07/2017 5:30 PM EST) P athologist Signature WBC 19.6 (H) 4.0 - 9.5 [facility] x10(3)/[facility] LABORATORY RBC 3.08 (L) 4.58 - [facility] 5.54 [facility] x10(6)/[facility] LABORATORY Hemoglobin 9.2 (L) 13.7 - [facility] 16.5 gm/dL [facility] Hematocrit 28.0 (L) 40.5 - [facility] 48.5 % [facility] Comment: This result has been called to MONICA MORAN by DONALD GROSSMAN on 07 07 2017 at 1759, and has been read back. MCV 90.9 82.9 - 93.1 [facility] LABORATORY MCH 29.9 27.5 - 32.1 pg [facility] MCHC 32.9 32.0 - 35.7 gm/dL [facility] Platelets 155 145 - 357 x10(3)/[facility] LABORATORY RDWSD 46.5 (H) 36.0 - 45.0 [facility] LABORATORY RDWCV 14.1 (H) 11.4 - 13.8 % [facility] MPV 9.5 7.6 - 12.9 [facility] LABORATORY nRBC % Auto 0.0 % [facility] nRBC Abs Auto 0.000 0.000 - 0.000 x10(3)/[facility] LABORATORY Specimen Anatomical Collection Method Collection Time Receive d Time (Source) Location / / Volume Laterality Blood specimen 07/07/2017 5:30 PM 017 5:34 (specimen) EST PM EST Resulting Agency Comment Spec In Lab Yifan Perez MD HEMATOLOGY ORDERABLES Performing Organization Address City/State/[place] [address] Prepare Platelets, Apheresis (07/07/2017 5:00 PM EST) P athologist Signature Dispensed? Yes [facility] Specimen Anatomical Collection Method Collection Time Receive d Time (Source) Location / / Volume Laterality Blood specimen 07/07/2017 5:00 PM 017 4:58 (specimen) EST PM EST Daphne Shahid MD BLOOD BANK ORDERABLES Performing Organization Address City/State/[place] [address] Platelet count (07/07/2017 4:55 PM EST) athologist Signature Platelets 177 145 - 357 [facility] x10(3)/[facility] LABORATORY Plat Immature 1.5 0.0 - 7.4 [facility] % % [facility] Comment: Limitation of the Immature Platelet Frac tion (IPF)-May be less reliable when the platelet count is less than 81x590/u L due to statistical imprecision. The IPF [...] in a decreased state of production. References: [employer] The Clinical Value of the Immature Platelet Fraction (IPF) in Cell Recovery Document Number 10-1143 12/2010 [employer] The Role of the Imm ature [...] Organization Address City/State/[place] [address] [facility] [address]ORY Drive (ABNORMAL) Hemoglobin and Hematocrit, blood (07/07/2017 4:55 PM EST) athologist Signature Hemoglobin 9.1 (L) 13.7 - 16.5 [facility] gm/dL [facility] Comment: This result has been called to MALKA MORAN by DONALD GROSSMAN on 07 07 2017 at 1734, and has been read back. Hematocrit 26.6 (L) 40.5 - 48.5 % [facility] Comment: This result [...] Organization Address City/State/[place] [address] (ABNORMAL) BLOOD GAS 2 ARTERIAL (07/07/2017 4:38 PM EST) Analysis Performed At Patho logist Time Signature pH Art 7.37 7.35 - [facility] 7.45 [facility] pCO2 Art 44 35 - 45 [facility] mmHg [facility] pO2 Art 322 (H) 85 - 104 [facility] LABORATORY HCO3 Art 24.9 20.0 - [facility] 26.0 [facility] mmol/L [facility] BE Art -0.4 -3.0 - 3.0 [facility] mmol/L [facility] Hgb Blood Gas 10.1 (L) 13.7 - [facility] 16.5 gm/dL [facility] O2HB Art 98.7 (H) 94.0 - [facility] 97.0 % [facility] COHB Art 0.1 % [facility] Comment: Nonsmokers: 0.5-1.5% COHB Smokers: Variable, but usually less than 10% Toxic: 20-30% COHB Lethal: Greater than 60% COHB METHB Art 0.3 <=1.5 % [facility] Na Whole Blood 130 (L) 135 - 145 mmol/L [facility] K Whole Blood 5.7 (H) 3.5 - 5.0 mmol/L [facility] Comment: Please note: Patients with WBC >100,000 may have falsely elevated Potassium levels. Contact the Clinical Chemistry L aboratory if there are any questions. ICa Whole Blood 0.89 (Critical) 1.15 - 1.33 mmol/L [facility] Comment: Noted by instrument panel assembler. Note: ??Total bilirubin higher than 20 m g/dL may lead to falsely low ionized calcium. CL Whole Blood 101 98 - 107 mmol/L [facility] Gluc Whole Bld 295 (H) 65 - 199 mg/dL [facility] Comment: Diabetes: >=200 mg/dL plus symp toms. Lactate WB 1.7 0.5 - 2.2 mmol/L [facility] Specimen Anatomical Collection Method Collection Time Receive d Time (Source) Location / / Volume Laterality Blood specimen 07/07/2017 4:38 PM 017 4:38 (specimen) EST PM EST Daphne Shahid MD CHEMISTRY ORDERABLES Performing Organization Address City/State/[place] [address] (ABNORMAL) BLOOD GAS 2 VENOUS (07/07/2017 4:06 PM EST) Analysis Performed At Patho logist Time Signature pH Cody 7.31 (L) 7.32 - [facility] 7.42 [facility] pCO2 Cody 47 41 - 51 [facility] LABORATORY pO2 Cody 53 (H) 25 - 40 [facility] LABORATORY HCO3 Cody 22.7 mmol/L [facility] BE Cody -3.7 mmol/L [facility] Hgb Blood Gas 10.2 (L) 13.7 - [facility] 16.5 gm/dL [facility] O2HB Cody 81.0 % [facility] COHB Cody 1.0 % [facility] Comment: Nonsmokers: 0.5-1.5% COHB Smokers: Variable, but usually less than 10% Toxic: 20-30% COHB Lethal: Greater than 60% COHB METHB Cody 0.3 <=1.5 % [facility] Na Whole Blood 132 (L) 135 - 145 mmol/L [facility] K Whole Blood 5.3 (H) 3.5 - 5.0 mmol/L [facility] Comment: Please note: Patients with WBC >100,000 may have falsely elevated Potassium levels. Contact the Clinical Chemistry L aboratory if there are any questions. ICa Whole Blood 0.90 (Critical) 1.15 - 1.33 mmol/L [facility] Comment: Noted by instrument panel assembler. Note: ??Total bilirubin higher than 20 m g/dL may lead to falsely low ionized calcium. CL Whole Blood 100 98 - 107 mmol/L [facility] Gluc Whole Bld 231 (H) 65 - 199 mg/dL [facility] Comment: Diabetes: >=200 mg/dL plus symp toms Lactate WB 1.1 0.5 - 2.2 mmol/L [facility] BGas Source Venous [facility] Specimen Anatomical Collection Method Collection Time Receive d Time (Source) Location / / Volume Laterality Blood specimen 07/07/2017 4:06 PM 017 4:06 (specimen) EST PM EST Daphne Shahid MD CHEMISTRY ORDERABLES Performing Organization Address City/State/[place] [address] (ABNORMAL) BLOOD GAS 2 ARTERIAL (07/07/2017 4:05 PM EST) Analysis Performed At Patho logist Time Signature pH Art 7.36 7.35 - [facility] 7.45 [facility] pCO2 Art 40 35 - 45 [facility] mmHg [facility] pO2 Art 282 (H) 85 - 104 [facility] mmHg [facility] HCO3 Art 22.1 20.0 - [facility] 26.0 [facility] mmol/L [facility] BE Art -3.4 (L) -3.0 - 3.0 [facility] mmol/L [facility] Hgb Blood Gas 10.2 (L) 13.7 - [facility] 16.5 gm/dL [facility] O2HB Art 98.4 (H) 94.0 - [facility] 97.0 % [facility] COHB Art 0.3 % [facility] Comment: Nonsmokers: 0.5-1.5% COHB Smokers: Variable, but usually less than 10% Toxic: 20-30% COHB Lethal: Greater than 60% COHB METHB Art 0.3 <=1.5 % [facility] Na Whole Blood 131 (L) 135 - 145 mmol/L [facility] K Whole Blood 5.4 (H) 3.5 - 5.0 mmol/L [facility] Comment: Please note: Patients with WBC >100,000 may have falsely elevated Potassium levels. Contact the Clinical Chemistry L aboratory if there are any questions. ICa Whole Blood 0.86 (Critical) 1.15 - 1.33 mmol/L [facility] Comment: Noted by instrument panel assembler. Note: ??Total bilirubin higher than 20 m g/dL may lead to falsely low ionized calcium. CL Whole Blood 101 98 - 107 mmol/L [facility] Gluc Whole Bld 260 (H) 65 - 199 mg/dL [facility] Comment: Diabetes: >=200 mg/dL plus symp toms. Lactate WB 1.4 0.5 - 2.2 mmol/L [facility] Specimen Anatomical Collection Method Collection Time Receive d Time (Source) Location / / Volume Laterality Blood specimen 07/07/2017 4:05 PM 017 4:05 (specimen) EST PM EST Daphne Shahid MD CHEMISTRY ORDERABLES Performing Organization Address City/State/[place] [address] (ABNORMAL) BLOOD GAS 2 ARTERIAL (07/07/2017 2:29 PM EST) Analysis Performed At Patho logist Time Signature pH Art 7.43 7.35 - [facility] 7.45 [facility] pCO2 Art 36 35 - 45 [facility] LABORATORY pO2 Art 221 (H) 85 - 104 [facility] LABORATORY HCO3 Art 23.2 20.0 - [facility] 26.0 [facility] mmol/L HOSPITAL LABORATORY BE Art -1.2 -3.0 - 3.0 [facility] mmol/L [facility] Hgb Blood Gas 13.9 13.7 - [facility] 16.5 gm/dL [facility] O2HB Art 97.8 (H) 94.0 - [facility] 97.0 % [facility] COHB Art 1.1 % [facility] Comment: Nonsmokers: 0.5-1.5% COHB Smokers: Variable, but usually less than 10% Toxic: 20-30% COHB Lethal: Greater than 60% COHB METHB Art 0.3 <=1.5 % [facility] Na Whole Blood 139 135 - 145 mmol/L [facility] K Whole Blood 4.0 3.5 - 5.0 mmol/L [facility] Comment: Please note: Patients with WBC >100,000 may have falsely elevated Potassium levels. Contact the Clinical Chemistry L aboratory if there are any questions. ICa Whole Blood 1.11 (L) 1.15 - 1.33 mmol/L [facility] Comment: Note: ??Total bilirubin higher than 20 m g/dL may lead to falsely low ionized calcium. CL Whole Blood 104 98 - 107 mmol/L [facility] Gluc Whole Bld 184 65 - 199 mg/dL [facility] Comment: Diabetes: >=200 mg/dL plus symp toms. Lactate WB 1.5 0.5 - 2.2 mmol/L [facility] Specimen Anatomical Collection Method Collection Time Receive d Time (Source) Location / / Volume Laterality Blood specimen 07/07/2017 2:29 PM 017 2:29 (specimen) EST PM EST Daphne Shahid MD CHEMISTRY ORDERABLES Performing Organization Address City/State/[place] [address] Prepare Coag Factors (Non-Hemophilia) (07/07/2017 1:25 PM EST) P athologist Signature Dispensed? Yes [facility] Specimen Anatomical Collection Method Collection Time Receive d Time (Source) Location / / Volume Laterality Blood specimen 07/07/2017 1:25 PM 017 1:21 (specimen) EST PM EST Daphne Shahid MD BLOOD BANK ORDERABLES Performing Organization Address City/State/ZIP Code Phon e Number [address] Prepare RBC (07/07/2017 1:10 PM EST) P athologist Signature Dispensed? Yes [facility] Specimen Anatomical Collection Method Collection Time Receive d Time (Source) Location / / Volume Laterality Blood specimen 07/07/2017 1:10 PM 017 1:05 (specimen) EST PM EST Daphne Shahid MD BLOOD BANK ORDERABLES Performing Organization Address City/[facility]/ZIP Code Phon e Number [address] POCT Glucose (07/07/2017 11:56 AM EST) P athologist Signature POC Glucose 188 65 - 199 [facility] mg/dL [facility] Comment: [...] Address City/[facility]/ZIP [place] [address] POCT Glucose (07/07/2017 11:05 AM EST) P athologist Signature POC Glucose 168 65 - 199 [facility] mg/dL [facility] Comment: [...] Address City/State/ZIP Code [place] [address] POCT Glucose (07/07/2017 10:02 AM EST) athologist Signature POC Glucose 191 65 - 199 [facility] mg/dL [facility] Comment: [...] Address City/State/ZIP [place] [address] POCT Glucose (07/07/2017 7:53 AM EST) athologist Signature POC Glucose 178 65 - 199 [facility] mg/dL [facility] Comment: [...] Address City/State/ZIP [place] [address] POCT Glucose (07/07/2017 7:03 AM EST) athologist Signature POC Glucose 188 65 - 199 [facility] mg/dL [facility] Comment: [...] Address City/State/ZIP [place] [address] (ABNORMAL) POCT Glucose (07/07/2017 6:17 AM EST) athologist Signature POC Glucose 207 (H) 65 - 199 [facility] mg/dL [facility] LABORATORY [...] Organization Address City/State/[place] [address] [facility] [address] Differential, Automated (07/07/2017 5:15 AM EST) athologist Signature Neutrophils % 69.7 % [facility] Neutr Abs (ANC) 5.32 1.70 - [facility] 6.10 [facility] x10(3)/[facility] LABORATORY Lymphocytes % 16.3 % [facility] Lymphocytes Abs 1.2 0.9 - 3.2 [facility] x10(3)/[facility] LABORATORY Monocytes % 10.5 % [facility] Monocyte Abs 0.8 0.3 - 0.9 [facility] x10(3)/[facility] LABORATORY Eosinophils % 2.5 % [facility] Eosinophils Abs 0.2 0.0 - 0.4 [facility] x10(3)/[facility] LABORATORY Basophils % 0.7 % [facility] Basophils Abs 0.0 0.0 - 0.1 [facility] x10(3)/[facility] LABORATORY Immature Gran % 0.30 % [facility] Comment: Immature granulocytes(IG's)percentage an d absolute count will include metamyelocytes, myelocytes, and promyelo cytes. Blood smears from CBCs yielding IG's will be scanned manually for concor dance. If this scan disagrees with the automated IG or if promyelocytes are not ed, a manual differential will be performed. Melisa Gran Abs 0.02 0.00 - 0.04 x10(3)/[facility] LABORATORY Specimen Anatomical Collection Method Collection Time Receive d Time (Source) Location / / Volume Laterality Blood specimen 07/07/2017 5:15 AM 017 5:34 (specimen) EST AM EST Resulting Agency Comment Spec In Lab Daphne Shahid MD HEMATOLOGY ORDERABLES Performing Organization Address City/State/[place] [address] (ABNORMAL) Hemogram (07/07/2017 5:15 AM EST) Analysis Performed At Patho logist Time Signature WBC 7.6 4.0 - 9.5 [facility] x10(3)/[facility] LABORATORY RBC 4.82 4.58 - [facility] 5.54 [facility] x10(6)/[facility] LABORATORY Hemoglobin 14.4 13.7 - [facility] 16.[facility] gm/dL [facility] Hematocrit 42.1 40.5 - [facility] 48.5 % [facility] MCV 87.3 82.9 - [facility] 93.1 [facility] LABORATORY MCH 29.9 27.5 - [facility] 32.1 pg [facility] MCHC 34.2 32.0 - [facility] 35.7 gm/dL [facility] Platelets 188 145 - 357 [facility] x10(3)/[facility] RDWSD 45.1 (H) 36.0 - [facility] 45.0 [facility] LABORATORY RDWCV 14.3 (H) 11.4 - [facility] 13.8 % [facility]ORY MPV 9.4 7.6 - 12.9 [facility] LABORATORY nRBC % Auto 0.0 % [facility] nRBC Abs Auto 0.000 0.000 - [facility] 0.000 [facility] x10(3)/[facility] LABORATORY Specimen Anatomical Collection Method Collection Time Receive d Time (Source) Location / / Volume Laterality Blood specimen 07/07/2017 5:15 AM 017 5:34 (specimen) EST AM EST Resulting Agency Comment Spec In Lab Daphne Shahid MD HEMATOLOGY ORDERABLES Performing Organization Address City/[facility]/ZIP [place] [address] (ABNORMAL) APTT (07/07/2017 5:15 AM EST) athologist Signature PTT 69 (H) 25 - 35 sec [facility] Comment: The recommended therapeutic range for fu ll dose, unfractionated heparin at [facility] is 80 ? 114 seconds. The use [...] Address City/[facility]/ZIP [place] [address] Magnesium (07/07/2017 5:15 AM EST) athologist Signature Magnesium 0.94 0.69 - 1.07 [facility] mmol/L [facility] Specimen Anatomical Collection Method Collection Time Receive d Time (Source) Location / / Volume Laterality Blood specimen 07/07/2017 5:15 AM 017 5:34 (specimen) EST AM EST Resulting Agency Comment Spec In Lab Daphne Shahid MD CHEMISTRY ORDERABLES Performing Organization Address City/[facility]/ZIP [place] [address] (ABNORMAL) Basic Metabolic Panel (non-fasting) (07/07/2017 5:15 AM EST) P athologist Signature Glucose Lvl 203 (H) 65 - 199 [facility] mg/dL [facility] Comment: Diabetes: >=200 mg/dL plus symp toms BUN 15 10 - 20 mg/dL [facility] Creatinine 1.09 0.80 - 1.50 mg/dL [facility] Sodium 142 135 - 145 mmol/L [facility] Potassium 4.4 3.5 - 5.0 mmol/L [facility] Comment: Please note: ??Patients with WBC >100,00 0 may have falsely elevated Potassium levels. ??For accurate Potassium quantif ication in these patients send serum separator tube (gold top) for subsequent determinations. ??Contact the Clinical Chemistry Laboratory if there are any qu estions. Chloride 102 98 - 107 mmol/L [facility] CO2 26 22 - 31 mmol/L [facility] Anion Gap 14 5 - 15 mmol/L [facility] Calcium 8.6 8.5 - 10.5 mg/dL [facility] Estimated GFR >60 >=60 [facility] Comment: The reported eGFR should be multiplied b y 1.2 for patients. The MDRD is not an appropriate measure o f renal function for patients with body mass extremes or in patients with acute kidney failure. http://[employer]/DHnkdep http://[employer]/DHMCnkf Specimen Anatomical Collection Method Collection Time Receive d Time (Source) Location / / Volume Laterality Blood specimen 07/07/2017 5:15 AM 017 5:34 (specimen) EST AM EST Resulting Agency Comment Spec In Lab Daphne Shahid MD CHEMISTRY ORDERABLES Performing Organization Address City/State/[place] [address] (ABNORMAL) Cardiac Enzymes (LEB/CGP) (07/07/2017 5:15 AM EST) P athologist Signature Troponin-T 2.07 (H) 0.00 - [facility] 0.00 ng/mL [facility] Comment: The 99th percentile for Troponin T is le ss than 0.01 ng/mL, any detectable cTnT concentration using this assay should be considered elevated. According to the third universal definit ion of myocardial infarction the following criteria with a clinical prese ntation consistent with acute myocardial ischemia meets the diagnosis for a myocardial infarction (NM). Detection of a rise and/or fall of [...] additional sample may be indicated. Reference: Third [place] Definition of Myocardial Infarction. Journal of the [place] [employer] 2012;60:1581-98 CK, Total 88 0 - 200 unit/L [facility] Specimen Anatomical Collection Method Collection Time Receive d Time (Source) Location / / Volume Laterality Blood specimen 07/07/2017 5:15 AM 017 5:34 (specimen) EST AM EST Resulting Agency Comment Spec In Lab Daphne Shahid MD CHEMISTRY ORDERABLES Performing Organization Address City/[facility]/ZIP Code Phon e Number [address] POCT Glucose (07/07/2017 5:01 AM EST) athologist Signature POC Glucose 182 65 - 199 [facility]dL [facility] Comment: Supplemental ranges: <140 mg/dL before meals <180 mg/dL all other times of the day Specimen Anatomical Collection Method Collection Time Receive d Time (Source) Location / / Volume Laterality Blood specimen 07/07/2017 5:01 AM 017 5:01 (specimen) EST AM EST Daphne Shahid MD POINT OF CARE TEST ORDERABLE S Performing Organization Address City/[facility] [place] [address] POCT Glucose (07/07/2017 4:08 AM EST) athologist Signature POC Glucose 199 65 - 199 [facility] mg/dL [facility] Comment: [...] Address City/State/ZIP [place] [address] POCT Glucose (07/07/2017 3:03 AM EST) athologist Signature POC Glucose 188 65 - 199 [place] [facility] mg/dL [facility] Comment: [...] Address City/State/ZIP [place] [address] (ABNORMAL) POCT Glucose (07/07/2017 2:08 AM EST) athologist Signature POC Glucose 200 (H) 65 - 199 [facility] mg/dL [facility] Comment: [...] Address City/State/ZIP Code Phon e Number [address] (ABNORMAL) POCT Glucose (07/07/2017 1:31 AM EST) athologist Signature POC Glucose 209 (H) 65 - 199 [place] [facility] mg/dL [facility] Comment: [...] Organization Address City/State/[place] [address] XR Chest PA or [...] Signature POC Glucose 161 65 - 199 [facility] mg/dL [facility] LABORATORY [...] Address City/State/ZIP [place] [address] (ABNORMAL) APTT (07/07/2017 12:00 AM EST) athologist Signature PTT 103 (H) 25 - 35 sec [facility] Comment: The recommended therapeutic range for fu ll dose, unfractionated heparin at [facility] is 80 ? 114 seconds. The use [...] Address City/[facility]/ZIP [place] [address] POCT Glucose (07/06/2017 9:55 PM EST) athologist Signature POC Glucose 109 65 - 199 [facility] mg/dL [facility] Comment: [...] Address City/[facility]/ZIP [place] [address] POCT Glucose (07/06/2017 9:04 PM EST) athologist Signature POC Glucose 120 65 - 199 [facility] mg/dL [facility] Comment: [...] Address City/[facility]/ZIP [place] [address] POCT Glucose (07/06/2017 7:45 PM EST) athologist Signature POC Glucose 158 65 - 199 [facility] mg/dL [facility] Comment: [...] Address City/[facility]/ZIP [place] [address] Potassium (07/06/2017 7:40 PM EST) athologist Signature Potassium 3.9 3.5 - 5.0 [facility] mmol/L [facility] Comment: Please note: ??Patients with [...] Address City/[facility]/Z[place] [address] (ABNORMAL) Cardiac Enzymes (LEB/CGP) (07/06/2017 7:40 PM EST) athologist Signature Troponin-T 2.27 (H) 0.00 - [facility] 0.00 ng/mL [facility] Comment: The 99th percentile for Troponin T is le ss than 0.01 ng/mL, any detectable cTnT concentration using this assay should be considered elevated. According to the third universal definit ion of myocardial infarction the following criteria with a clinical prese ntation consistent with acute myocardial ischemia meets the diagnosis for a myocardial infarction (NM). Detection of a rise and/or fall of [...] additional sample may be indicated. Reference: Third [place] Definition of Myocardial Infarction. Journal of the [place] [employer] 2012;60:1581-98 CK, Total 93 0 - 200 unit/L [facility] Specimen Anatomical Collection Method Collection Time Receive d Time (Source) Location / / Volume Laterality Blood specimen 07/06/2017 7:40 PM 017 7:52 (specimen) EST PM EST Resulting Agency Comment Spec In Lab Daphne Shahid MD CHEMISTRY ORDERABLES Performing Organization Address City/State/[place] [address] (ABNORMAL) POCT Glucose (07/06/2017 7:13 PM EST) athologist Signature POC Glucose 200 (H) 65 - 199 [facility] mg/dL [facility] Comment: [...] Address City/[facility]/ZIP [place] [address] (ABNORMAL) APTT (07/06/2017 6:15 PM EST) athologist Signature PTT 94 (H) 25 - 35 sec [facility] Comment: The recommended therapeutic range for fu ll dose, unfractionated heparin at [facility] is 80 ? 114 seconds. The use [...] Address City/[facility]/Z[place] [address] (ABNORMAL) POCT Glucose (07/06/2017 6:03 PM EST) athologist Signature POC Glucose 236 (H) 65 - 199 [facility] mg/dL [facility] Comment: [...] Address City/[facility]/Z[place] [address] (ABNORMAL) POCT Glucose (07/06/2017 5:01 PM EST) athologist Signature POC Glucose 235 (H) 65 - 199 [place] [facility] mg/dL [facility] Comment: [...] Address City/State/ZIP [place] [address] (ABNORMAL) POCT Glucose (07/06/2017 4:06 PM EST) P athologist Signature POC Glucose 202 (H) 65 - 199 [facility] mg/dL [facility] Comment: [...] Address City/[facility]/ZIP [place] [address] POCT Glucose (07/06/2017 2:59 PM EST) P athologist Signature POC Glucose 178 65 - 199 [facility] mg/dL [facility] Comment: [...] Address City/State/ZIP [place] [address] (ABNORMAL) Cardiac Enzymes (LEB/CGP) (07/06/2017 2:10 PM EST) P athologist Signature Troponin-T 2.34 (H) 0.00 - [facility] 0.00 ng/mL [facility] Comment: The 99th percentile for Troponin T is le ss than 0.01 ng/mL, any detectable cTnT concentration using this assay should be considered elevated. According to the third universal definit ion of myocardial infarction the following criteria with a clinical prese ntation consistent with acute myocardial ischemia meets the diagnosis for a myocardial infarction (NM). Detection of a rise and/or fall of [...] additional sample may be indicated. Reference: Third [place] Definition of Myocardial Infarction. Journal of the [place] [employer] 2012;60:1581-98 CK, Total 101 0 - 200 unit/L [facility] Specimen Anatomical Collection Method Collection Time Receive d Time (Source) Location / / Volume Laterality Blood specimen 07/06/2017 2:10 PM 017 2:26 (specimen) EST PM EST Resulting Agency Comment Spec In Lab Daphne Shahid MD CHEMISTRY ORDERABLES Performing Organization Address City/State/[place] [address] POCT Glucose (07/06/2017 2:08 PM EST) P athologist Signature POC Glucose 192 65 - 199 [facility] mg/dL [facility] LABORATORY [...] Address City/State/ZIP Code Phon e Number [address] POCT Glucose (07/06/2017 1:04 PM EST) P athologist Signature POC Glucose 162 65 - 199 [facility] mg/dL [facility] Comment: [...] Address City/[facility]/ZIP [place] [address] POCT Glucose (07/06/2017 12:05 PM EST) P athologist Signature POC Glucose 196 65 - 199 [facility] mg/dL [facility] Comment: [...] Address City/[facility]/ZIP Code Phon e Number [address] EKG 12 Lead (07/06/2017 12:00 PM EST) Component Value Ref Range Test Analysis Performed Pathologis t Method Time At Signature Ventricular rate 91 BPM MUSE SYSTEM Atrial Rate 91 BPM MUSE SYSTEM P-R Interval 140 ms MUSE SYSTEM QRS Duration 94 ms MUSE SYSTEM Q-T Interval 394 ms MUSE SYSTEM QTC Calculated 484 ms MUSE SYSTEM (Bezet) Calculated P [place] 36 degrees MUSE SYSTEM Calculated R [place] -19 degrees MUSE SYSTEM Calculated T [place] 104 degrees MUSE SYSTEM INTERPRETATION Normal sinus rhythm MUSE SYSTEM 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) ST & T wave abnormality, consider lateral ischemia Abnormal ECG When compared with ECG of 05-JUL-2017 20:39, No significant change was found Confirmed by MD Luci, Taurus Braun ([id number]) on 07/06/2017 5:07:33 PM Specimen Anatomical Collection Method Collection Time Receive d Time (Source) Location / / Volume Laterality 07/06/2017 12:00 07/06/2017 5:07 PM EST PM EST Daphne Shahid MD ECG ORDERABLES Performing Organization Address City/State/ZIP Code Phon e Number MUSE SYSTEM ABORH Recheck Status (07/06/2017 12:00 PM EST) [facility] gist Method Time Signature ABORH Type Completed [facility] LABORATORY Specimen Anatomical Collection Method Collection Time Receive d Time (Source) Location / / Volume Laterality Blood specimen 07/06/2017 12:00 7 (specimen) PM EST 12:24 PM EST Resulting Agency Comment Spec In Lab Daphne Shahid MD BLOOD BANK ORDERABLES Performing Organization Address City/[facility]/ZIP [place] [address] Antibody screen (07/06/2017 12:00 PM EST) [facility] Method Time Signature Ab Screen Negative [facility] LABORATORY Expires at 07/09/2017 [facility] 235 on: [facility] Specimen Anatomical Collection Method Collection Time Receive d Time (Source) Location / / Volume Laterality Blood specimen 07/06/2017 12:00 7 (specimen) PM EST 12:24 PM EST Resulting Agency Comment Spec In Lab Daphne Shahid MD BLOOD BANK ORDERABLES Performing Organization Address City/[facility]/ZIP [place] [address] ABO/Rh Typing (07/06/2017 12:00 PM EST) P athologist Signature ABORh Type O Pos [facility] Specimen Anatomical Collection Method Collection Time Receive d Time (Source) Location / / Volume Laterality Blood specimen 07/06/2017 12:00 7 (specimen) PM EST 12:24 PM EST Resulting Agency Comment Spec In Lab Daphne Shahid MD BLOOD BANK ORDERABLES Performing Organization Address City/State/ZIP [place] [address] Prothrombin Time (07/06/2017 11:24 AM EST) athologist Signature PT 13.3 11.8 - 14.0 [facility] LABORATORY INR 1.0 0.9 - 1.1 [facility] Comment: An INR [...] Address City/[facility]/Z[place] [address] (ABNORMAL) APTT (07/06/2017 11:24 AM EST) athologist Signature PTT 52 (H) 25 - 35 sec [facility] Comment: The recommended therapeutic range for fu ll dose, unfractionated heparin at [facility] is 80 ? 114 seconds. The use [...] Address City/[facility]/Z[place] [address] POCT Glucose (07/06/2017 11:02 AM EST) athologist Signature POC Glucose 187 65 - 199 [place] mg/dL [facility] Comment: [...] Address City/State/ZIP [place] [address] POCT Glucose (07/06/2017 10:18 AM EST) athologist Signature POC Glucose 193 65 - 199 [place] mg/dL [facility] Comment: [...] Address City/State/ZIP [place] [address] POCT Glucose (07/06/2017 9:25 AM EST) athologist Signature POC Glucose 182 65 - 199 [place] mg/dL [facility] Comment: [...] Address City/State/Z[place] [address] (ABNORMAL) Cardiac Enzymes (LEB/CGP) (07/06/2017 8:10 AM EST) athologist Signature Troponin-T 2.26 (H) 0.00 - [facility] ng/mL [facility] Comment: The 99th percentile for Troponin T is le ss than 0.01 ng/mL, any detectable cTnT concentration using this assay should be considered elevated. According to the third universal definit ion of myocardial infarction the following criteria with a clinical prese ntation consistent with acute myocardial ischemia meets the diagnosis for a myocardial infarction (NM). Detection of a rise and/or fall of [...] additional sample may be indicated. Reference: Third [place] Definition of Myocardial Infarction. Journal of the [place] [employer] 2012;60:1581-98 CK, Total 124 0 - 200 unit/L [facility] Specimen Anatomical Collection Method Collection Time Receive d Time (Source) Location / / Volume Laterality Blood specimen 07/06/2017 8:10 AM 017 8:23 (specimen) EST AM EST Resulting Agency Comment Spec In Lab Daphne hSahid MD CHEMISTRY ORDERABLES Performing Organization Address City/State/[place] [address] Magnesium (07/06/2017 8:10 AM EST) athologist Signature Magnesium 0.84 0.69 - 1.07 [facility] mmol/L [facility] Specimen Anatomical Collection Method Collection Time Receive d Time (Source) Location / / Volume Laterality Blood specimen 07/06/2017 8:10 AM 017 8:21 (specimen) EST AM EST Resulting Agency Comment Spec In Lab Daphne Shahid MD CHEMISTRY ORDERABLES Performing Organization Address City/State/[place] [address] (ABNORMAL) Basic Metabolic Panel (non-fasting) (07/06/2017 8:10 AM EST) P athologist Signature Glucose Lvl 199 65 - 199 [facility] mg/dL [facility] Comment: Diabetes: >=200 mg/dL plus symp toms BUN 16 10 - 20 mg/dL [facility] Creatinine 1.04 0.80 - 1.50 mg/dL [facility] Sodium 141 135 - 145 mmol/L [facility] Potassium 4.5 3.5 - 5.0 mmol/L [facility] Comment: Please note: ??Patients with WBC >100,00 0 may have falsely elevated Potassium levels. ??For accurate Potassium quantif ication in these patients send serum separator tube (gold top) for subsequent determinations. ??Contact the Clinical Chemistry Laboratory if there are any qu estions. Chloride 101 98 - 107 mmol/L [facility] CO2 27 22 - 31 mmol/L [facility] Anion Gap 13 5 - 15 mmol/L [facility] Calcium 8.1 (L) 8.5 - 10.5 mg/dL [facility] Estimated GFR >60 >=60 [facility] Comment: The reported eGFR should be multiplied b y 1.2 for patients. The MDRD is not an appropriate measure o f renal function for patients with body mass extremes or in patients with acute kidney failure. http://Cycle.uTaP/DHnkdep http://Cycle.uTaP/DHnkf Specimen Anatomical Collection Method Collection Time Receive d Time (Source) Location / / Volume Laterality Blood specimen 07/06/2017 8:10 AM 017 8:21 (specimen) EST AM EST Resulting Agency Comment Spec In Lab Daphne Shahid MD CHEMISTRY ORDERABLES Performing Organization Address City/State/ZIP [place] [address] POCT Glucose (07/06/2017 7:34 AM EST) P athologist Signature POC Glucose 198 65 - 199 [facility] mg/dL [facility] Comment: [...] Address City/State/ZIP Code Phon e Number [address] POCT Glucose (07/06/2017 7:03 AM EST) athologist Signature POC Glucose 181 65 - 199 [facility] mg/dL [facility] Comment: [...] Address City/State/ZIP [place] [address] XR Chest PA or [...] Signature POC Glucose 172 65 - 199 [facility] mg/dL [facility] LABORATORY [...] Organization Address City/State/[place] [address] POCT Glucose (07/06/2017 5:08 AM EST) athologist Signature POC Glucose 154 65 - 199 [facility] mg/dL [facility] LABORATORY [...] Address City/State/ZIP Code Phon e Number [address] POCT Glucose (07/06/2017 4:05 AM EST) athologist Signature POC Glucose 142 65 - 199 [facility] mg/dL [facility] Comment: [...] Address City/State/ZIP Code Phon e Number [address] POCT Glucose (07/06/2017 3:00 AM EST) athologist Signature POC Glucose 116 65 - 199 [facility] mg/dL [facility] Comment: [...] Address City/State/ZIP Code Phon e Number [address] Potassium (07/06/2017 2:20 AM EST) athologist Signature Potassium 3.9 3.5 - 5.0 [facility] mmol/L [facility] Comment: Please note: ??Patients with [...] Organization Address City/State/[place] [address] Differential, Automated (07/06/2017 2:20 AM EST) athologist Signature Neutrophils % 72.9 % [facility] Neutr Abs (ANC) 5.53 1.70 - [facility] 6.10 [facility] x10(3)[facility] LABORATORY Lymphocytes % 16.4 % [facility] Lymphocytes Abs 1.2 0.9 - 3.2 [facility] x10(3)/[facility] LABORATORY Monocytes % 9.4 % [facility] Monocyte Abs 0.7 0.3 - 0.9 [facility] x10(3)/[facility] LABORATORY Eosinophils % 0.5 % [facility] Eosinophils Abs 0.0 0.0 - 0.4 [facility] x10(3)/[facility] LABORATORY Basophils % 0.4 % [facility] Basophils Abs 0.0 0.0 - 0.1 [facility] x10(3)/[facility] LABORATORY Immature Gran % 0.40 % [facility] Comment: Immature granulocytes(IG's)percentage an d absolute count will include metamyelocytes, myelocytes, and promyelo cytes. Blood smears from CBCs yielding IG's will be scanned manually for concor dance. If this scan disagrees with the automated IG or if promyelocytes are not ed, a manual differential will be performed. Melisa Gran Abs 0.03 0.00 - 0.04 x10(3)/[facility] LABORATORY Specimen Anatomical Collection Method Collection Time Receive d Time (Source) Location / / Volume Laterality Blood specimen 07/06/2017 2:20 AM 017 2:33 (specimen) EST AM EST Resulting Agency Comment Spec In Lab Daphne Shahid MD HEMATOLOGY ORDERABLES Performing Organization Address City/State/[place] [address] (ABNORMAL) Hemogram (07/06/2017 2:20 AM EST) Analysis Performed At Patho logist Time Signature WBC 7.6 4.0 - 9.5 [facility] x[facility](3[facility] LABORATORY RBC 4.52 (L) 4.58 - [place] [facility] 5.54 [facility] x10(6)/[facility] LABORATORY Hemoglobin 13.4 (L) 13.7 - [facility] 16.5 gm/dL [facility] Hematocrit 39.7 (L) 40.5 - [facility] 48.5 % [facility]ORATORY MCV 87.8 82.9 - [facility] SU 93.1 [facility] LABORATORY MCH 29.6 27.5 - [place] 32.1 pg [facility] LABORATORY MCHC 33.8 32.0 - [place] 35.7 gm/dL [facility] Platelets 189 145 - 357 [facility] x10(3)/[facility] LABORATORY RDWSD 45.6 (H) 36.0 - [facility] 45.0 [facility] LABORATORY RDWCV 14.3 (H) 11.4 - [facility] SU 13.8 % [facility] LABORATORY MPV 9.1 7.6 - 12.9 [facility] LABORATORY nRBC % Auto 0.0 % [facility] LABORATORY nRBC Abs Auto 0.000 0.000 - [facility] SU 0.000 [facility] x10(3)/[facility] LABORATORY Specimen Anatomical Collection Method Collection Time Receive d Time (Source) Location / / Volume Laterality Blood specimen 07/06/2017 2:20 AM 017 2:33 (specimen) EST AM EST Resulting Agency Comment Spec In Lab Daphne Shahid MD HEMATOLOGY ORDERABLES Performing Organization Address City/State/ZIP [place] [address] (ABNORMAL) APTT (07/06/2017 2:20 AM EST) athologist Signature PTT 52 (H) 25 - 35 sec [facility] Comment: The recommended therapeutic range for fu ll dose, unfractionated heparin at [facility] is 80 ? 114 seconds. The use [...] Address City/[facility]/Z[place] [address] POCT Glucose (07/06/2017 2:20 AM EST) athologist [facility] POC Glucose 115 65 - 199 [facility] mg/dL [facility] LABORATORY [...] Address City/[facility]/ZIP [place] [address] (ABNORMAL) Cardiac Enzymes (LEB/CGP) (07/06/2017 2:20 AM EST) athologist [facility] Troponin-T 2.13 (H) 0.00 - [facility] 0.00 ng/mL [facility] Comment: The 99th percentile for Troponin T is le ss than 0.01 ng/mL, any detectable cTnT concentration using this assay should be considered elevated. According to the third universal definit ion of myocardial infarction the following criteria with a clinical prese ntation consistent with acute myocardial ischemia meets the diagnosis for a myocardial infarction (NM). Detection of a rise and/or fall of [...] additional sample may be indicated. Reference: Third [place] Definition of Myocardial Infarction. Journal of the [place] [employer] 2012;60:1581-98 CK, Total 129 0 - 200 unit/L [facility] Specimen Anatomical Collection Method Collection Time Receive d Time (Source) Location / / Volume Laterality Blood specimen 07/06/2017 2:20 AM 017 2:33 (specimen) EST AM EST Resulting Agency Comment Spec In Lab Daphne Shahid MD CHEMISTRY ORDERABLES Performing Organization Address City/State/ZIP Code Phon e Number [place] [id number] (ABNORMAL) Hemoglobin A1c (07/06/2017 2:20 AM EST) Analysis Performed At Patho logist Time Signature Hemoglobin A1C 6.8 (H) 4.3 - 5.6 [facility] Mellitus, Diabetes Care 2013; 36: Suppl. 1, S67-83 Est Avg Gluc See note mg/dL [facility] Comment: Estimated Average Glucose not [...] with hemoglobinopathies. Additional resources are available on [facility] ADA website. Macario HAMMOND, Ruthann J, Deysi R, et al. ??Tr anslating the A1C assay into estimated average glucose values. ??Diabetes Care 2008:31(8):7117-4956. Specimen Anatomical Collection Method Collection Time Receive d Time (Source) Location / / Volume Laterality Blood specimen 07/06/2017 2:20 AM 017 2:34 (specimen) EST AM EST Resulting Agency Comment Spec In Lab Daphne Shahid MD CHEMISTRY ORDERABLES Performing Organization Address City/State/ZIP [place] [address] (ABNORMAL) Lipid Panel (07/06/2017 2:20 AM EST) [facility] Method Time Signature Chol, Total 150 <=239 [place] mg/dL [facility] Triglycerides 129 <=199 [place] mg/dL [facility] HDL 32 (L) >=40 [place] mg/dL [facility] LDL Cholesterol 92 <=190 [place] mg/dL [facility] Chol/HDL Ratio 4.7 ratio [facility] Lipid See Note [place] Interpretation [facility] Comment: Lipid management should be guided by a p atient? s ASCVD risk, goals and preferences. ACC/AHA Guidelines recommend high intens ity statin if clinical ASCVD or LDL greater than or equal to 190 mg/dL. http://Cycle.com/EDU-BWL-Xrypdbyme Adults aged 40-75 with LDL 70-189 mg/dL should have their 10 year ASCVD risk estimated with the ACC/AHA ASCVD risk es timator http://tools.acc.org/DSEUP-Pvcd-Jicrghcc r/ Statin should be discussed if risk [...] Address City/State/ZIP [place] [address] POCT Glucose (07/06/2017 1:09 AM EST) P athologist Signature POC Glucose 121 65 - 199 [facility] mg/dL [facility] LABORATORY [...] Address City/State/ZIP [place] [address] POCT Glucose (07/06/2017 12:06 AM EST) P athologist Signature POC Glucose 147 65 - 199 [facility] mg/dL [facility] Comment: [...] Address City/State/ZIP [place] [address] (ABNORMAL) POCT Glucose (07/05/2017 10:56 PM EST) P athologist Signature POC Glucose 200 (H) 65 - 199 [facility] mg[facility]dL [facility] Comment: [...] Address City/State/Z[place] [address] (ABNORMAL) POCT Glucose (07/05/2017 10:05 PM EST) P athologist Signature POC Glucose 225 (H) 65 - 199 [place] mg/dL [facility] Comment: [...] Address City/State/ZIP Code [place] [address] (ABNORMAL) POCT Glucose (07/05/2017 9:02 PM EST) P athologist Signature POC Glucose 301 (H) 65 - 199 [facility] mg/dL [facility] Comment: [...] Address City/State/ZIP Code Phon e Number [address] XR Chest PA or [...] 474 ms MUSE SYSTEM (Bezet) Calculated P [place] 50 degrees MUSE SYSTEM Calculated R [place] -28 degrees MUSE SYSTEM Calculated T [place] 90 degrees MUSE SYSTEM INTERPRETATION Sinus tachycardia [...] Method Time Signature Neutrophils % 88.4 % [facility] LABORATORY Neutr Abs (ANC) 9.08 (H) 1.70 - [facility] 6.10 [facility] x10(3)/[facility] L LABORATORY Lymphocytes % 7.0 % [facility] LABORATORY Lymphocytes Abs 0.7 (L) 0.9 - 3.2 [facility] x10(3)/[facility] LABORATORY Monocytes % 3.7 % [facility] LABORATORY Monocyte Abs 0.4 0.3 - 0.9 [facility] x10(3)/[facility] LABORATORY Eosinophils % 0.1 % [facility] LABORATORY Eosinophils Abs 0.0 0.0 - 0.4 [facility] x10(3)/[facility] LABORATORY Basophils % 0.2 % [facility] LABORATORY Basophils Abs 0.0 0.0 - 0.1 [facility] x10(3)/[facility] LABORATORY Immature Gran % 0.60 % [facility]ORY Comment: Immature granulocytes(IG's)percentage an d absolute count will include metamyelocytes, myelocytes, and promyelo cytes. Blood smears from CBCs yielding IG's will be scanned manually for concor dance. If this scan disagrees with the automated IG or if promyelocytes are not ed, a manual differential will be performed. Melisa Gran Abs 0.06 (H) 0.00 - 0.04 x10(3)/[facility] LABORATORY Specimen Anatomical Collection Method Collection Time Receive d Time (Source) Location / / Volume Laterality Blood specimen 07/05/2017 8:20 PM 017 8:27 (specimen) EST PM EST Resulting Agency Comment Spec In Lab Dapnhe Shahid MD HEMATOLOGY ORDERABLES Performing Organization Address City/State/[place] [address] (ABNORMAL) Hemogram (07/05/2017 8:20 PM EST) Analysis Performed At Patho logist Time Signature WBC 10.3 (H) 4.0 - 9.5 [facility] x10(3)/[facility] LABORATORY RBC 4.64 4.58 - [place] 5.54 [facility] x10(6)/[facility] LABORATORY Hemoglobin 14.1 13.7 - [facility] SU 16.5 gm/dL [facility] LABORATORY Hematocrit 40.8 40.5 - [place] 48.5 % [facility] LABORATORY MCV 87.9 82.9 - [place] 93.1 fL [facility] LABORATORY MCH 30.4 27.5 - [place] 32.1 pg [facility] LABORATORY MCHC 34.6 32.0 - [place] 35.7 gm/dL [facility] LABORATORY Platelets 204 145 - 357 [facility] x10(3)/[facility] LABORATORY RDWSD 46.1 (H) 36.0 - [place] 45.0 [facility] LABORATORY RDWCV 14.5 (H) 11.4 - [facility] 13.8 % [facility] LABORATORY MPV 9.7 7.6 - 12.9 [facility] LABORATORY nRBC % Auto 0.0 % [facility] LABORATORY nRBC Abs Auto 0.000 0.000 - [facility] 0.000 [facility] x10(3)/[facility] LABORATORY Specimen Anatomical Collection Method Collection Time Receive d Time (Source) Location / / Volume Laterality Blood specimen 07/05/2017 8:20 PM 017 8:27 (specimen) EST PM EST Resulting Agency Comment Spec In Lab Daphne Shahid MD HEMATOLOGY ORDERABLES Performing Organization Address City/[facility]/ZIP Code Phon e Number [address] APTT (07/05/2017 8:20 PM EST) athologist Signature PTT 32 25 - 35 sec [facility] LABORATORY Comment: The recommended therapeutic range for fu ll dose, unfractionated heparin at [facility] is 80 ? 114 seconds. The use [...] Address City/[facility]/ZIP [place] [address] (ABNORMAL) Cardiac Enzymes (LEB/CGP) (07/05/2017 8:20 PM EST) athologist Signature Troponin-T 2.11 (H) 0.00 - [facility] 0.00 ng/mL [facility] LABORATORY Comment: The 99th percentile for Troponin T is le ss than 0.01 ng/mL, any detectable cTnT concentration using this assay should be considered elevated. According to the third universal definit ion of myocardial infarction the following criteria with a clinical prese ntation consistent with acute myocardial ischemia meets the diagnosis for a myocardial infarction (NM). Detection of a rise and/or fall of [...] additional sample may be indicated. Reference: Third [place] Definition of Myocardial Infarction. Journal of the [place] [employer] 2012;60:1581-98 CK, Total 149 0 - 200 unit/L [facility] LABORATORY Specimen Anatomical Collection Method Collection Time Receive d Time (Source) Location / / Volume Laterality Blood specimen 07/05/2017 8:20 PM 017 8:27 (specimen) EST PM EST Resulting Agency Comment Spec In Lab Daphne Shahid MD CHEMISTRY ORDERABLES Performing Organization Address City/[facility]/ZIP [place] [address] (ABNORMAL) Magnesium (07/05/2017 8:20 PM EST) P athologist Signature Magnesium 0.68 (L) 0.69 - 1.07 [facility] mmol/L [facility] LABORATORY Specimen Anatomical Collection Method Collection Time Receive d Time (Source) Location / / Volume Laterality Blood specimen 07/05/2017 8:20 PM 017 8:27 (specimen) EST PM EST Resulting Agency Comment Spec In Lab Daphne Shahid MD CHEMISTRY ORDERABLES Performing Organization Address City/[facility]/ZIP [place] [address] (ABNORMAL) Basic Metabolic Panel (non-fasting) (07/05/2017 8:20 PM EST) athologist Signature Glucose Lvl 321 (H) 65 - 199 [facility] mg/dL [facility] Comment: Diabetes: >=200 mg/dL plus symp toms BUN 20 10 - 20 mg/dL [facility] LABORATORY Creatinine 1.12 0.80 - 1.50 mg/dL [facility] LABORATORY Sodium 139 135 - 145 mmol/L [facility] LABORATORY Potassium 3.8 3.5 - 5.0 mmol/L [facility] LABORATORY Comment: Please note: ??Patients with WBC >100,00 0 may have falsely elevated Potassium levels. ??For accurate Potassium quantif ication in these patients send serum separator tube (gold top) for subsequent determinations. ??Contact the Clinical Chemistry Laboratory if there are any qu estions. Chloride 98 98 - 107 mmol/L [facility] CO2 27 22 - 31 mmol/L [facility] Anion Gap 14 5 - 15 mmol/L [facility] LABORATORY Calcium 8.1 (L) 8.5 - 10.5 mg/dL [facility] LABORATORY Estimated GFR >60 >=60 [facility] LABORATORY Comment: The reported eGFR should be multiplied b y 1.2 for patients. The MDRD is not an appropriate measure o f renal function for patients with body mass extremes or in patients with acute kidney failure. http://Cycle.uTaP/DHnkdep http://Snapshot Interactive/DHMCnkf Specimen Anatomical Collection Method Collection Time Receive d Time (Source) Location / / Volume Laterality Blood specimen 07/05/2017 8:20 PM 017 8:27 (specimen) EST PM EST Resulting Agency Comment Spec In Lab Daphne Shahid MD CHEMISTRY ORDERABLES Performing Organization Address City/State/[place] [address] (ABNORMAL) POCT Glucose (07/05/2017 7:32 PM EST) athologist Signature POC Glucose 296 (H) 65 - 199 [facility] mg/dL [facility] LABORATORY [...] Organization Address City/State/[place] [address] CARDIAC CATHETERIZATION (07/05/2017 6:47 PM EST) Specimen (Source) Anatomical Location Collection Method / Collectio n Time Received Time / Laterality Volume Narrative CARDIOMAC SYSTEM - 07/05/2017 7:27 PM ES T ?[facility] ? Cardiac Cathete rization/Intervention Report ? Patient Name: Natalya, Gregory ? Procedure Date: 07/05/2017 ? A #: [id number] ? Primary Physician: Clarisa, Jet Sampson ? Case #: [id number] ? File Name: [id number] ? Catheterization Order Number: [id number] ? [facility] ? Final Report [place], [place] ? Patient Name: ? Gregory Natalya ?ID#: ?[id number] ? : ?1945 ? Procedure Date: ? [...] presented with: non -STEMI (w/i 7 days). [place] ?Cardiovascular Society angina c lass was IV. [...] site angio graphy and IABP insertion in labview programmer. ? Jet Mckenna, M.D. ? Electronically Signed by: Jet Robbins s, M.D. ? Report Finalized: 07/05/2017 ??19:23 ? Report Last Ammended: 10/26/2017 ??10:29 ? Procedure Note Jet Mckenna MD - 10/26/2017Formatt ing of this note might be different from the original. [facility] Cardiac Catheterization/Intervention Re port Patient Name: Gregory Hoang Procedure Date: 07/05/2017 A #: [id number] Primary Physician: Jet Mckenna Case #: [id number] File Name: [id number] Catheterization Order Number: [id number] [facility] Final Report [place], [place] Patient Name: Gregory Hoang ID#: [id number] : 1945 Procedure Date: July 05, [...] presented with: non-STEMI ( w/i 7 days). [place] [employer] angina class was IV. No [...] site angiograph y and IABP insertion in labview programmer. Jet Mckenna M.D. Electronically Signed by: Jet [...] Mccollum ? (Age): 1945(72y) Med Rec#: ? [id number] ?Sex: ?M ? Site Loc: ? [facility] ?Ht / Wt: ??173(cm)/86(kg) Pt. Loc: ?[facility] ? BSA: ?2 Study Date: ?? 07/05/2017 ?Pt. Type: Inpatient Tape: ? Referring: Daphne Shahid ([id number]) Referring: MANDA ALCANTAR Reading: lBade Preston ([id number]) Private Sector Executive: Dayami Paula BA, [facility] Diagnosis: *ICD-10-PCS Non-ST elevation (NSTEMI) m yocardial [...] E-wave Vmax ?0.8 ?m/sec ? MV deceleration [id number] ?msec ? MV A-wave Vmax ?0.8 ?m/sec [...] ? Mid-Inferior ?Akinetic ? Mid-Inferoseptal ?Hypokinetic ? [place]-Septal ? Akinetic ? [place]-Anterior ? Hypokinetic ? [place]-Lateral ?Hypokinetic ? [place]-Inferior ? Akinetic ? [place]-Tip ?Akinetic ? This report has been electronically sign ed by: _ Blade Preston MD ? 07/06/2017 08 :53:15 Images [facility] Procedure Note Blade Preston MD - 07/06/2017Formatt ing of this note might be different from the original. Procedure: Transthoracic Echocardiogram Patient: NATALYA MCBRIDE(Age): [birth year]72y) Med Rec#: [id number] Sex: M Site Loc: [facility] Ht / Wt: 173(cm)/86(kg) Pt. Loc: [facility] BSA: 2 Study Date: 07/05/2017 Pt. Type: Inpatie nt Tape: Referring: Daphne Shahid ([id number]) Referring: MANDA ALCANTAR Reading: Blade Preston ([id number]) Private Sector Executive: Dayami Paula BA, [facility] Diagnosis: *ICD-10-PCS Non-ST elevation (NSTEMI) m yocardial [...] MV E-wave Vmax 0.8 m/sec MV deceleration [id number] msec MV A-wave Vmax 0.8 m/sec MV [...] Hypokinetic Mid-Posterolateral Hypokinetic Mid-Inferior Akinetic Mid-Inferoseptal Hypokinetic [place]-Septal Akinetic [place]-Anterior Hypokinetic [place]-Lateral Hypokinetic [place]-Inferior Akinetic [place]-Tip Akinetic This report has been electronically sign ed by: _ Blade Preston MD 07/06/2017 08:53:15 Images reviewed and interpretation verif ied [facility] Cardiac Ultrasound Laboratory Daphne Shahid MD ECHO ORDERABLES Performing Organization Address City/State/ZIP Code Phon e Number [facility] Differential, Automated (07/05/2017 4:55 PM EST) P athologist Signature Neutrophils % 77.0 % [facility] LABORATORY Neutr Abs (ANC) 5.26 1.70 - [facility] 6.10 [facility] x10(3)/[facility] LABORATORY Lymphocytes % 13.3 % [facility] LABORATORY Lymphocytes Abs 0.9 0.9 - 3.2 [facility] x10(3)/[facility] LABORATORY Monocytes % 8.2 % [facility] LABORATORY Monocyte Abs 0.6 0.3 - 0.9 [facility] x10(3)/[facility] LABORATORY Eosinophils % 0.7 % [facility] LABORATORY Eosinophils Abs 0.0 0.0 - 0.4 [facility] x10(3)/[facility] LABORATORY Basophils % 0.4 % [facility] LABORATORY Basophils Abs 0.0 0.0 - 0.1 [facility] x10(3)/[facility] LABORATORY Immature Gran % 0.40 % [facility] LABORATORY Comment: Immature granulocytes(IG's)percentage an d absolute count will include metamyelocytes, myelocytes, and promyelo cytes. Blood smears from CBCs yielding IG's will be scanned manually for concor dance. If this scan disagrees with the automated IG or if promyelocytes are not ed, a manual differential will be performed. Melisa Gran Abs 0.03 0.00 - 0.04 x10(3)/[facility] MAR Y [facility] LABORATORY Specimen Anatomical Collection Method Collection Time Receive d Time (Source) Location / / Volume Laterality Blood specimen 07/05/2017 4:55 PM 017 5:24 (specimen) EST PM EST Resulting Agency Comment Spec In Lab Daphne Shahid MD HEMATOLOGY ORDERABLES Performing Organization Address City/State/[place] [address] (ABNORMAL) Hemogram (07/05/2017 4:55 PM EST) Analysis Performed At Patho logist Time Signature WBC 6.8 4.0 - 9.5 [facility] x10(3)/[facility] LABORATORY RBC 4.67 4.58 - [facility] 5.54 [facility] x10(6)/[facility] LABORATORY Hemoglobin 14.0 13.7 - [facility] 16.5 gm/dL [facility] LABORATORY Hematocrit 41.0 40.5 - [facility] 48.5 % [facility] LABORATORY MCV 87.8 82.9 - [facility] 93.1 [facility] LABORATORY MCH 30.0 27.5 - [facility] 32.1 pg [facility] LABORATORY MCHC 34.1 32.0 - [facility] 35.7 gm/dL [facility] LABORATORY Platelets 197 145 - 357 [facility] x10(3)/[facility] LABORATORY RDWSD 46.4 (H) 36.0 - [facility] 45.0 [facility] LABORATORY RDWCV 14.5 (H) 11.4 - [facility] 13.8 % [facility] LABORATORY MPV 9.7 7.6 - 12.9 [facility] LABORATORY nRBC % Auto 0.0 % [facility] LABORATORY nRBC Abs Auto 0.000 0.000 - [facility] 0.000 [facility] x10(3)/[facility] LABORATORY Specimen Anatomical Collection Method Collection Time Receive d Time (Source) Location / / Volume Laterality Blood specimen 07/05/2017 4:55 PM 017 5:24 (specimen) EST PM EST Resulting Agency Comment Spec In Lab Daphne Shahid MD HEMATOLOGY ORDERABLES Performing Organization Address City/[facility]/ZIP [place] [address] (ABNORMAL) Cardiac Enzymes (LEB/CGP) (07/05/2017 4:55 PM EST) P athologist Signature Troponin-T 1.69 (H) 0.00 - [place] 0.00 ng/mL [facility] Comment: The 99th percentile for Troponin T is le ss than 0.01 ng/mL, any detectable cTnT concentration using this assay should be considered elevated. According to the third universal definit ion of myocardial infarction the following criteria with a clinical prese ntation consistent with acute myocardial ischemia meets the diagnosis for a myocardial infarction (NM). Detection of a rise and/or fall of [...] additional sample may be indicated. Reference: Third [place] Definition of Myocardial Infarction. Journal of the [place] [employer] 2012;60:1581-98 CK, Total 191 0 - 200 unit/L [facility] LABORATORY Specimen Anatomical Collection Method Collection Time Receive d Time (Source) Location / / Volume Laterality Blood specimen 07/05/2017 4:55 PM 017 5:56 (specimen) EST PM EST Resulting Agency Comment Spec In Lab Daphne Shahid MD CHEMISTRY ORDERABLES Performing Organization Address City/[facility]/ZIP [place] [address] (ABNORMAL) pro-Brain Natriuretic Peptide (07/05/2017 4:55 PM EST) athologist Signature ProBNP 1,598 (H) <=125 [facility] pg/mL [facility] LABORATORY Specimen Anatomical Collection Method Collection Time Receive d Time (Source) Location / / Volume Laterality Blood specimen 07/05/2017 4:55 PM 017 5:24 (specimen) EST PM EST Resulting Agency Comment Spec In Lab Daphne Shahid MD CHEMISTRY ORDERABLES Performing Organization Address City/[facility]/ZIP Code Phon e Number [address] Magnesium (07/05/2017 4:55 PM EST) athologist [facility] Magnesium 0.78 0.69 - 1.07 [facility] mmol/L [facility] LABORATORY Specimen Anatomical Collection Method Collection Time Receive d Time (Source) Location / / Volume Laterality Blood specimen 07/05/2017 4:55 PM 017 5:24 (specimen) EST PM EST Resulting Agency Comment Spec In Lab Daphne Shahid MD CHEMISTRY ORDERABLES Performing Organization Address City/State/ZIP Code Phon e Number [address] (ABNORMAL) Basic Metabolic Panel (non-fasting) (07/05/2017 4:55 PM EST) athologist [facility] Glucose Lvl 230 (H) 65 - 199 [facility] mg/dL [facility] LABORATORY Comment: Diabetes: >=200 mg/dL plus symp toms BUN 19 10 - 20 mg/dL [facility] LABORATORY Creatinine 1.04 0.80 - 1.50 mg/dL [facility] LABORATORY Sodium 142 135 - 145 mmol/L [facility] LABORATORY Potassium 4.0 3.5 - 5.0 mmol/L [facility] LABOR[facility]ORY Comment: Please note: ??Patients with [...] [facility] Anion Gap 14 5 - 15 mmol/L [facility]OR[facility]ORY Calcium 8.5 8.5 - 10.5 mg/dL [facility] LABORATORY Estimated GFR >60 >=60 [facility] Comment: The reported eGFR should be multiplied b y 1.2 for patients. The MDRD is not an appropriate measure o f renal function for patients with body mass extremes or in patients with acute kidney failure. http://Snapshot Interactive/DHnkdep http://Snapshot Interactive/DHMCnkf Specimen Anatomical Collection Method Collection Time Receive d Time (Source) Location / / Volume Laterality Blood specimen 07/05/2017 4:55 PM 017 5:24 (specimen) EST PM EST Resulting Agency Comment Spec In Lab Daphne Shahid MD CHEMISTRY ORDERABLES Performing Organization Address City/[facility] [place] [address] (ABNORMAL) APTT (07/05/2017 4:55 PM EST) P athologist Signature PTT 41 (H) 25 - 35 sec [facility] LABOR[facility]ORY Comment: The recommended therapeutic range for fu ll dose, unfractionated heparin at [facility] is 80 ? 114 seconds. The use [...] Address City/[facility]/ZIP Code Phon e Number [address] (ABNORMAL) POCT Glucose (07/05/2017 4:53 PM EST) P athologist Signature POC Glucose 208 (H) 65 - 199 [facility] mg/dL [facility] LABORATORY [...] Organization Address City/State/[place] [address] EKG 12 Lead (07/05/2017 4:32 PM EST) Component Value Ref Range Test Analysis Performed Pathologis t Method Time At Signature Ventricular rate 97 BPM MUSE SYSTEM Atrial Rate 97 BPM MUSE SYSTEM P-R Interval 148 ms MUSE SYSTEM QRS Duration 96 ms MUSE SYSTEM Q-T Interval 364 ms MUSE SYSTEM QTC Calculated 462 ms MUSE SYSTEM (Bezet) Calculated P [place] 48 degrees MUSE SYSTEM Calculated R [place] -33 degrees MUSE SYSTEM Calculated T [place] 98 degrees MUSE SYSTEM INTERPRETATION Normal sinus [...] post-op day 1 in the AM Give OH if unable to take PO, Routine Given [...] 400 mg 0841 (Given - Provider: Em Jonse RN) 0922 (Given - Provider: Myrna triplett, [...] post-op day 1 in the AM Give OH if unable to take PO, Routine atorvastatin [...] Provider: Myrna Young, VAMSI)1002 (Stopped - Provider: Mynra Young RN) 2 g, Intravenous, EVERY 8 [...] post-op day 1 in the AM Give OH if unable to take PO
Routine Group [...]
Routine documented in this encounter Care Teams Talcer Relationship Specialty Start Date End Date Lovely Vicente MD PCP - General 04/16/[address] [place] [address] documented as of this encounter
--- OUTSIDE RECORDS SUMMARY | 2022-02-13 11:18 | XMS_ITS | Encounter Summary ---
:1945 [place] [address] Care Team Providers Name Role Phone Lovely Vicente MD Primary Care Provider Reason for Visit Auth/Cert Specialty Diagnoses / Procedures Referred By Contact Refer red To Contact Diagnoses STEMI (ST elevation myocardial infarction) NSTEMI STEMI Procedures CARDIAC CATHETERIZATION NAYE IPI Referral ID Status Reason Start Date Expiration Date Visits Requ ested Visits Authorized [id number] 1 1 Encounter Details Date Type Department Care Team Description 07/07/2017 Anesthesia Event Main Operating Room Yifan Jaime MD [facility] [place] [address] [facility] Ginny Murray MD [facility] [place] [address] [facility] [place] [address] Anesthesia Record Procedure Summary Procedure Name [...] 07/27/17 03/28/13 0000 by 0000 by Chapin Pittman RN Murray-Duch esne, Jillian M, [...] 2342 LDA Cath/EP Sheath 07/05/17; 0606; 8 Italian 07/05/17 0606 by [id number] by (Fr); Right; Femoral Lilliana Park, Yane Cook, RN PIV 07/05/17; 1720; median 07/05/17 1720 by 07/11/17 2355 by vein (underside of arm), Prior, Ynaet Maza, VAMSI Crum, Angela Gomes, left; 18 gauge; removed FRUIT SHIPPER per policy/procedure; 07/11/17; 2355 Intra-Aortic Balloon 07/05/17; [...] Miller, Carrie L, Type: Cuffed; ETT Size: GYMNASTICS COACH OR INSTRUCTOR 8 mm; Santiago Blade: 2; Notes: Asleep, [...] Murray MD - 07/08/2017 5:08 PM EST [facility] Department of Anesthesiology Post-procedure Note Patient: Don Fatima Procedure Summary Date Anesthesia Start Anesthesia Stop Room / Location 07/07/17 1335 1836 [facility] OR [facility] MAIN OR Procedure Diagnosis Surgeon Responsible Provider @CABG, USING ARTERIAL GRAFT;SINGLE ARTERIAL GRAFT (WRVU 33.75) (N/A Chest); @CABG, TWO VENOUS GRAFTS & ARTERIAL GRAFT (WRVU 7.93) (N/A Chest); ENDOSCOPIC HARVEST VEIN(S) FOR CABG (WRVU 0.31) (Right Leg) (CAD) Yuan Freitas MD Hartman, Gregg S, MD All Anesthesia Providers: Anesthesiologist: Yifan Perze MD Rope Making Machine Operator: Ginny Murray MD Most Recent Vitals: 07/08/17 [...] FACIAL NERVE MONITORING, SETUP performed by Manny Mcnkight MD at [facility] MAIN OR ??? PRO COLONOSCOPY, REMV LESN, SNARE 01/16/2014 COLONOSCOPY, POLYPECTOMY, REMOVAL LESION BY SNARE performed by Nohemi Jaimes MD at [facility] ENDOSCOPY ??? PRO THYROIDECTOMY 03/28/2013 THYROIDECTOMY, TOTAL OR COMPLETE performed by Manny Mcknight MD at [facility] MAIN OR Social History Substance Use Topics [...] 02/19/2022 Office Visit Cardiology Liz Poole PA [facility] er Cardiology Dept [place], [place] [address] (Wo rk) 03/26/2022 Office Visit Cardiology Vitaliy Nobles MD [facility] CARDIOLOGY [place], [place] [address] (Wo rk) [...] mg documented in this encounter Care Teams Bin Piler Relationship Specialty Start Date End Date Lovely Vicente MD PCP - General 04/16/[address] [place] [address] documented as of this encounter
--- OUTSIDE RECORDS SUMMARY | 2022-02-13 11:20 | XMS_ITS | Encounter Summary ---
:1945 Author Organization [facility] [place] [address] Care Team Providers Name Role Phone Lovely Vicente MD Primary Care Provider Reason for Visit Reason Onset Date Comments Referral 10/30/2015 Urgent referral for mac on [place] Encounter Details Date Type Department Care Team Description 10/30/2015 Telephone Ophthalmology at [facility] C Jayson Ruiz Referral (Urgent [facility] MD Grabiel referral for mac on [facility] DR [place]) [place] [address] OPHTHALMOLOGY DEPT. [phone] [place], [place] [address] (Wo rk) Social History Tobacco [...] 02/19/2022 Office Visit Cardiology Liz Poole PA [facility] Medical [facility] er Cardiology Dept [place], [place] [address] (Wo rk) 03/26/2022 Office Visit Cardiology Vitaliy Nobles MD [facility] ER CARDIOLOGY [place], [place] [address] (Wo rk) documented as of this encounter Visit Diagnoses Not on filedocumented in this encounter Care Teams Paper Cutter Operator Relationship Specialty Start Date End Date Lovely Vicente MD PCP - General 04/16/15 [facility] [address] [place] [address] documented as of this encounter
--- OUTSIDE RECORDS SUMMARY | 2022-02-13 11:20 | XMS_ITS | Encounter Summary ---
:1945 Author Organization [place] [address] Care Team Providers Name Role Phone Lovely Vicente MD Primary Care Provider Encounter Details Date Type Department Care Team Description 09/03/2016 Laboratory Appointment Lab at [facility] Hx of papillary [facility] [place] [phone] Social History Tobacco Use Types Packs/Day Years [...] [facility] er Cardiology Dept [place], [place] 0[address] (Wo rk) 03/26/2022 Office Visit Cardiology Vitaliy Nobles MD [facility] ER CARDIOLOGY [place], [place] 0[address] (Wo rk) documented as of [...] EST) P athologist Signature Thyroglobulin <0.4 <=54.9 [facility] ng/mL [facility] Comment: Interpret with caution. Tg [...] BR et al. J Clin Endo Metab 1999;84:2308-7212). Assay performed using the DPC Immulite T g immunometric assay. (lowest detection limit is <0.4 ng/ml). Thyroglob Ab <20.0 0.0 - 40.0 IU/mL [facility] Comment: Assay performed is the [...] Organization Address City/State/[place] [address] TSH (09/03/2016 11:07 AM EST) P athologist Signature TSH 3.01 0.27 - 4.20 KATALINA RYAN mcIU/mL [facility] Specimen Anatomical Collection Method Collection Time Receive d Time (Source) Location / / Volume Laterality Blood specimen 09/03/2016 11:07 7 (specimen) AM EST 11:22 AM EST Resulting Agency Comment Spec In Lab Luz Prescott MD CHEMISTRY ORDERABLES Performing Organization Address City/State/[place] [address] documented in this encounter Visit Diagnoses Diagnosis Hx of papillary thyroid carcinoma Personal history of malignant neoplasm o f thyroid documented in this encounter Care Teams Electron Beam Operator Relationship Specialty Start Date End Date Lovely Vicente MD PCP - General 04/16/[address] [place] [address] documented as of this encounter
--- OUTSIDE RECORDS SUMMARY | 2022-02-13 11:20 | XMS_ITS | Encounter Summary ---
:1945 Author Organization [facility] [place] [address] Care Team Providers Name Role Phone Lovely Vicente MD Primary Care Provider Encounter Details Date Type Department Care Team Description 09/03/2016 Office Visit Endocrinology at [facility] Maria Ines Stallings of [facility] MD [place] [address] [place] [address] ENDOCRINOLOGY DEPT [place], [place] [address] Social History Tobacco Use Types [...] to his magnesium pill. LUZ PRESCOTT MD Community Organizermechanical systems control engineer Section of Endocrinology [facility] Luz Prescott MD - 09/03/2016 11:30 AM [...] sonographic evidence of recurrence. LUZ PRESCOTT MD Community Organizermechanical systems control engineer Section of Endocrinology [facility] documented in this encounter Plan of Treatment Upcoming Encounters Date Type Specialty Care Team Description 02/19/2022 Laboratory Appointment Lab 02/19/2022 Office Visit Cardiology Liz Poole PA [facility] Cardiology Dept [place], [place] 0[address] (Wo rk) 03/26/2022 Office Visit Cardiology Vitaliy Nobles MD [facility] CARDIOLOGY [place], [place] 0375 (Wo rk) documented as of this encounter Results Thyroglobulin (09/07/2017 2:41 PM EST) athologist Signature Thyroglobulin 1.4 <=54.9 [facility] ng/mL [facility] Comment: Thyroglobulin levels may be [...] Thyroglob Ab <20.0 0.0 - 40.0 IU/mL [facility] Comment: Assay performed is the DPC Immulite Tg-A b immunometric assay. (Cutoff for TgAb negativity is <20 IU/ml ) Specimen Anatomical Collection Method Collection Time Receive d Time (Source) Location / / Volume Laterality Blood specimen 09/07/2017 2:41 PM 018 2:46 (specimen) EST PM EST Resulting Agency Comment Spec In Lab Luz Prescott MD CHEMISTRY ORDERABLES Performing Organization Address City/[facility]/ZIP Code Phon e Number [address] TSH (09/07/2017 2:41 PM EST) athologist Signature TSH 3.93 0.27 - 4.20 KATALINA DAVIS mlU/ML [facility] Specimen Anatomical Collection Method Collection Time Receive d Time (Source) Location / / Volume Laterality Blood specimen 09/07/2017 2:41 PM 018 2:46 (specimen) EST PM EST Resulting Agency Comment Spec In Lab Luz Prescott MD CHEMISTRY ORDERABLES Performing Organization Address City/[facility] Phon e Number [address] Thyroglobulin (09/03/2016 11:07 AM EST) athologist Signature Thyroglobulin <0.4 <=54.9 KATALINA DAVIS ng/mL [facility] Comment: Interpret with caution. Tg [...] DALLAS et al. J Clin Endo Metab 1999;84:1348-6873). Assay performed using the DPC Immulite T g immunometric assay. (lowest detection limit is <0.4 ng/ml). Thyroglob Ab <20.0 0.0 - 40.0 IU/mL [facility] Comment: Assay performed is the DPC Immulite Tg-A b immunometric assay. (Cutoff for TgAb negativity is <20 IU/ml ) Specimen Anatomical Collection Method Collection Time Receive d Time (Source) Location / / Volume Laterality Blood specimen 09/03/2016 11: 7 1:37 (specimen) AM EST PM EST Resulting Agency Comment Spec In Lab Luz Prescott MD CHEMISTRY ORDERABLES Performing Organization Address City/[facility]/[place] [address] TSH (09/03/2016 11:07 AM EST) P athologist Signature TSH 3.01 0.27 - 4.20 [facility] mcIU/mL [facility] Specimen Anatomical Collection Method Collection Time Receive d Time (Source) Location / / Volume Laterality Blood specimen 09/03/2016 11:07 7 (specimen) AM EST 11:22 AM EST Resulting Agency Comment Spec In Lab Luz Prescott MD CHEMISTRY ORDERABLES Performing Organization Address City/[facility]/[place] [address] documented in this encounter Visit Diagnoses Diagnosis Hx of papillary thyroid carcinoma Personal history of malignant neoplasm o f thyroid documented in this encounter Care Teams Lye Treater Relationship Specialty Start Date End Date Lovely Vicente MD PCP - General 04/16/[address] [place] [address] documented as of this encounter
--- OUTSIDE RECORDS SUMMARY | 2022-02-13 11:20 | XMS_ITS | Encounter Summary ---
:1945 Author Organization [facility] [place] [address] Care Team Providers Name Role Phone Angela Holliday APRN Primary Care Provider Encounter Details Date Type Department Care Team Description 04/30/2014 Orders Only Endocrinology at [facility] Albertina Palmer, Thyroid cancer [facility] Jorge Boyer MD (Primary Dx) [place] [address] [address] [facility] [phone] CENTER ENDOCRINOLOGY DEPT [place], [place] [address] Social History Tobacco Use Types [...] 02/19/2022 Office Visit Cardiology Liz Poole PA [facility] Cardiology Dept [place], [place] 0[address] (Wo rk) 03/26/2022 Office Visit Cardiology Vitaliy Nobles MD [facility] ER CARDIOLOGY [place], [place] [address] (Wo rk) documented as of this encounter Visit Diagnoses Diagnosis Thyroid cancer - Primary Malignant neoplasm of thyroid gland documented in this encounter Care Teams Economic Specialist Relationship Specialty Start Date End Date Angela Holliday APRN PCP - General 01/25/13 04/15/[address] [place] [address] documented as of this encounter
--- OUTSIDE RECORDS SUMMARY | 2022-02-13 11:20 | XMS_ITS | Encounter Summary ---
:1945 Author Organization [facility] [place] [address] Care Team Providers Name Role Phone MiyaLokeshAngela STACIE Primary Care Provider Reason for Visit Reason Onset Date Comments Post-op Problem 04/05/2013 voiding trial Encounter Details Date Type Department Care Team Description 04/05/2013 Telephone Urology at [facility] Blade Smith, Post-op Problem [facility] (voiding trial) [place] [address] UROLOGY DEPT [place] [phone] (Wo rk) Social History Tobacco Use Types [...] Poole PA [facility] Cardiology [place], [place] [address] (Wo rk) 03/26/2022 Office Visit Cardiology Vitaliy Nobles MD [facility] CARDIOLOGY [place], [place] 0375 (Wo rk) documented as of this encounter Visit Diagnoses Not on filedocumented in this encounter Care Teams Instrument Panel Assembler Relationship Specialty Start Date End Date Angela Holliday APRN PCP - General 01/25/13 04/15/[address] [place] [address] documented as of this encounter
--- OUTSIDE RECORDS SUMMARY | 2022-02-13 11:20 | XMS_ITS | Encounter Summary ---
:1945 Author Organization [facility] [place] [address] Care Team Providers Name Role Phone Angela Holliday APRN Primary Care Provider Reason for Visit Reason Comments Other Encounter Details Date Type Department Care Team Description 08/01/2013 Telephone Dermatology at [facility] Rigoberto Garcia III, [address] [place] [address] [facility] [phone] TEJA MARIE-DERMAT [place], [place] [address] (Wo rk) Social History Tobacco [...] them. Component Value Surgical Pathology Final Report [facility] Provider: RIGOBERTO GARCIA III Pt. Name: DON HOANG Acc #: [id number] Pt. 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 CR-0 08/01/13 BJM 08/01/13 Verified by: Ian STRANGE, PhD, [facility] Dermatopathologist (Electronic Signature) The attending pathologist [...] Office Visit Cardiology Liz Poole PA [facility] Medical [facility] er Cardiology [place], [place] 0[address] (Wo rk) 03/26/2022 Office Visit Cardiology Vitaliy Nobles MD [facility] ER CARDIOLOGY [place], [place] [address] (Wo rk) documented as of this encounter Visit Diagnoses Not on filedocumented in this encounter Care Teams Jacker Relationship Specialty Start Date End Date Angela Holliday APRN PCP - General 01/25/13 04/15/15 [address] [place] [address] documented as of this encounter
--- OUTSIDE RECORDS SUMMARY | 2022-02-13 11:20 | XMS_ITS | Encounter Summary ---
:1945 [address] [facility] [place] [address] Care Team Providers Name Role Phone Angela Holliday APRN Primary Care Provider Encounter Details Date Type Department Care Team Description 04/05/2013 [place] [address] Social History Tobacco Use Types Packs/Day [...] Office Visit Cardiology Liz Poole PA [facility] Medical [facility] er Cardiology Dept [place], [place] [address] (Wo rk) 03/26/2022 Office Visit Cardiology Vitaliy Nobles MD [facility] ER CARDIOLOGY [place], [place] 0[address] (Wo rk) documented as of this encounter Visit Diagnoses Not on filedocumented in this encounter Care Teams Movie Theater Usher Relationship Specialty Start Date End Date Angela Holliday APRN PCP - General 01/25/13 04/15/[address] [place] [address] documented as of this encounter
--- OUTSIDE RECORDS SUMMARY | 2022-02-13 11:20 | XMS_ITS | Encounter Summary ---
:1945 Author Organization [facility] [place] [address] Care Team Providers Name Role Phone Lovely Vicente MD Primary Care Provider Reason for Visit Reason Comments Skin Check Encounter Details Date Type Department Care Team Description 06/05/2016 Office Visit Dermatology at [facility] istory of melanoma; Abdelrahman HOOPER MD Seborrheic keratosis; [address] [facility] [place] (actinic keratosis); [place] [address] Multiple nevi; [phone] [facility] Scar [address]-DERMATOLGY [place], [place] 0[address] Social History Tobacco Use Types [...] Diagnostic, Drum (ACCU-CHEK COMPACT TEST) Strip by [facility].(Non- Drug; Combo Route) route 2 times daily. [...] encounter. Rigoberto Garcia MD Section of Dermatology [facility] documented in this encounter Plan of Treatment Upcoming Encounters Date Type Specialty Care Team Description 02/19/2022 Laboratory Appointment Lab 02/19/2022 Office Visit Cardiology Liz Poole PA [facility] er Cardiology Dept [place], [place] 0[address] (Wo rk) 03/26/2022 Office Visit Cardiology Vitaliy Nobles MD [facility] CARDIOLOGY [place], [place] 0[address] (Wo rk) documented as of this encounter Visit Diagnoses Diagnosis History of melanoma Personal history of malignant melanoma o f skin Seborrheic keratosis Other seborrheic keratosis [place] (actinic keratosis) Actinic keratosis Multiple nevi Benign neoplasm of skin, site unspecifie d Scar Scar condition and fibrosis of skin documented in this encounter Care Teams Cath Lab Radiology Technician Relationship Specialty Start Date End Date Lovely Vicente MD PCP - General 04/16/[address] [place] [address] [address] [place] [address] documented as of this encounter
--- OUTSIDE RECORDS SUMMARY | 2022-02-13 11:20 | XMS_ITS | Encounter Summary ---
:1945 Author Organization [facility] [place] [address] Care Team Providers Name Role Phone Angela Holliday APRN Primary Care Provider Reason for Visit Reason Comments Benign Prostatic Hypertrophy Encounter Details Date Type Department Care Team Description 11/28/2013 Follow-Up Urology at [facility] [place] Blade Smith, Urinary retention (Primary D x); [facility] BPH (benign prostatic hyperplasia) [place] [address] UROLOGY DEPT [place], [place] [address] (Wo rk) Social History Tobacco [...] [facility] Cardiology Dept [place], [place] 0[address] (Wo rk) 03/26/2022 Office Visit Cardiology Vitaliy Nobles MD [facility] CARDIOLOGY [place], [place] 0[address] (Wo rk) documented as of [...] Organization Address City/State/ZIP Code Phon e Number [place] [phone] [facility] documented in this encounter Visit Diagnoses Diagnosis Urinary retention - Primary Retention of urine, unspecified BPH (benign prostatic hyperplasia) Unspecified hyperplasia of prostate with out urinary obstruction and other lower urinary tract symptoms (LUTS) documented in this encounter Care Teams Roofing Technician Relationship Specialty Start Date End Date Angela Holliday APRN PCP - General 01/25/13 04/15/[address] [place] [address] documented as of this encounter
--- OUTSIDE RECORDS SUMMARY | 2022-02-13 11:20 | XMS_ITS | Encounter Summary ---
:1945 Author Organization [facility] [place] [address] Care Team Providers Name Role Phone MiyaAngela STACIE Primary Care Provider Reason for Visit Reason Comments Urinary Retention Encounter Details Date Type Department Care Team Description 05/16/2013 Follow-Up Urology at [facility] Blade Smith, Retention of urine [facility] (Primary Dx) [place] [address] UROLOGY DEPT [place] [id number] (Wo rk) Social History Tobacco Use Types [...] Poole PA [facility] er Cardiology Dept [place], [place] 0[address] (Wo rk) 03/26/2022 Office Visit Cardiology Vitaliy Nobles MD [facility] CARDIOLOGY [place], [place] 0[address] (Wo rk) documented as of this encounter Visit Diagnoses Diagnosis Retention of urine - Primary Retention of urine, unspecified documented in this encounter Care Teams Development Disability Specialist Relationship Specialty Start Date End Date Angela Holliday APRN PCP - General 01/25/13 04/15/[address] [place] [address] documented as of this encounter
--- OUTSIDE RECORDS SUMMARY | 2022-02-13 11:20 | XMS_ITS | Encounter Summary ---
:1945 Author Organization [facility] [address] Care Team Providers Name Role Phone Angela Holliday APRN Primary Care Provider Encounter Details Date Type Department Care Team Description 03/30/2013 Telephone General Surgery at [facility] Cliff Nevarez, [place] [address] Social History Tobacco Use Types Packs/Day [...] [facility] er Cardiology Dept [place], [place] [address] (Wo rk) 03/26/2022 Office Visit Cardiology Vitaliy Nobles MD [facility] ER CARDIOLOGY [place], [place] [address] (Wo rk) documented as of this encounter Visit Diagnoses Not on filedocumented in this encounter Care Teams Peoplesoft Developer Relationship Specialty Start Date End Date Angela Holliday APRN PCP - General 01/25/13 04/15/[address] [place] [address] documented as of this encounter
--- OUTSIDE RECORDS SUMMARY | 2022-02-13 11:20 | XMS_ITS | Encounter Summary ---
:1945 [place] [address] Care Team Providers Name Role Phone Lovely Vicente MD Primary Care Provider Reason for Visit Reason Onset Date Comments Other 12/09/2016 RESULTS Encounter Details Date Type Department Care Team Description 12/09/2016 Telephone Dermatology at [facility] Halima Cadet MD Other (RESULTS) [address] [facility] [address] [facility] [phone] [place], [place] [address] (Wo rk) Social History Tobacco [...] EDT Spoke with patient's , Kisha (personal sales representative trainee). I advised her Don's pathology results are [...] back. She can be reached back at [phone] documented in this encounter Plan of Treatment Upcoming Encounters Date Type Specialty Care Team Description 02/19/2022 Laboratory Appointment Lab 02/19/2022 Office Visit Cardiology Liz Poole PA [facility] Cardiology Dept [place], [place] [address] (Wo rk) 03/26/2022 Office Visit Cardiology Vitaliy Nobles MD [facility] CARDIOLOGY [place], [place] [address] (Wo rk) documented as of this encounter Visit Diagnoses Not on filedocumented in this encounter Care Teams Domestic Violence Advocate Relationship Specialty Start Date End Date Lovely Vicente MD PCP - General 04/16/[address] [place] [address] documented as of this encounter
--- OUTSIDE RECORDS SUMMARY | 2022-02-13 11:20 | XMS_ITS | Encounter Summary ---
:1945 Author Organization [facility] [place] [address] Care Team Providers Name Role Phone Lovely Vicente MD Primary Care Provider Reason for Visit Reason Comments Follow-up Encounter Details Date Type Department Care Team Description 06/03/2017 Office Visit Dermatology at [facility] benign nevi; Abdelrahman HOOPER MD History of melanoma; [address] [facility] History of dysplastic nevus; [place] [address] Skin exam for malignant neoplasm [phone] [facility] [place], [place] [address] Social History Tobacco Use Types [...] encounter. Rigoberto Garcia MD Section of Dermatology [facility] documented in this encounter Plan of Treatment Upcoming Encounters Date Type Specialty Care Team Description 02/19/2022 Laboratory Appointment Lab 02/19/2022 Office Visit Cardiology Liz Poole PA [facility] Cardiology Dept [place], [place] [address] (Wo rk) 03/26/2022 Office Visit Cardiology Vitaliy Nobles MD [facility] CARDIOLOGY [place], [place] [address] (Wo rk) documented as of [...] skin documented in this encounter Care Teams Cloth Mercerizing Supervisor Relationship Specialty Start Date End Date Lovely Vicente MD PCP - General 04/16/[address] [place] [address] documented as of this encounter
--- OUTSIDE RECORDS SUMMARY | 2022-02-13 11:20 | XMS_ITS | Encounter Summary ---
:1945 Author Organization [facility] [place] [address] Care Team Providers Name Role Phone Miya Angela STACIE Primary Care Provider Encounter Details Date Type Department Care Team Description 04/24/2013 Telephone Urology at [facility] Zhen Bowman MD [facility] [place] [address] UROLOGY DEPT [phone] [place], [place] [address] (Wo rk) Social History Tobacco [...] PA [facility] Cardiology Dept [place], [place] [address] (Wo rk) 03/26/2022 Office Visit Cardiology Vitaliy Nobles MD [facility] CARDIOLOGY [place], [place] [address] (Wo rk) documented as of this encounter Visit Diagnoses Not on filedocumented in this encounter Care Teams Bottle Line Worker Relationship Specialty Start Date End Date Angela Holilday APRN PCP - General 01/25/13 04/15/[address] [place] [address] documented as of this encounter
--- OUTSIDE RECORDS SUMMARY | 2022-02-13 11:20 | XMS_ITS | Encounter Summary ---
:1945 Author Organization [facility] [place] [address] Care Team Providers Name Role Phone Angela Sotelo APRN Primary Care Provider Encounter Details Date Type Department Care Team Description 01/16/2014 Surgery Gastroenterology at [facility] Nohemi Swann, COLONOSCOPY, [facility] Jorge mcnamara MD [place], [place] [address] [facility] ([facility] [phone] DR Cintron) GASTROENTEROLOGY DEPT. [place], [place] [address] Social History Tobacco Use Types [...] you need to be checked. Wednesday[facility] [phone] 8a-5p Same Day Endo [phone] 7a-8p Otherwise contact [phone] and ask to speak to the tape calender second worker Follow up care is a [place] part [...] as of this encounter H&P Notes Nohemi Sawnn MD - 01/16/2014 8:53 AM EDT Gastroenterology [...] Swann MD - 01/16/2014 9:49 AM EDT [facility] Operative Note Patient Name: Gregory Fatima : [id number] MR#: [id number] Case Date: 01/16/2014 Surgeon: Surgeon(s) and Role: * Nohemi Swann MD - Primary Preoperative diagnosis: 5 yr surv. Full procedure note is documented under the Procedure section of eDH. documented in this encounter Plan of Treatment Upcoming Encounters Date Type Specialty Care Team Description 02/19/2022 Laboratory Appointment Lab 02/19/2022 Office Visit Cardiology Liz Poole PA [facility] er Cardiology Dept [place], [place] [address] (Wo lissa) 03/26/2022 Office Visit Cardiology Vitaliy Nobles MD [facility] ER [address] [place], [place] [address] (Mikayla alcaraz) documented as of [...] Surgical Pathology Report (01/16/2014 9:53 AM EDT) [facility] Method Time Signature Surgical CERNER Pathology ? [facility] Report ? Provider: ?? NOHEMI SWANN ?Pt. Name: ?? SURINDER ALEGRE, GREGORY Mccollum ? Acc #: ?[id number] ?Pt. MRN: ?[id number] ? Col Date: ?? 4 ? /Sex: [...] Organization Address City/State/[place] [address] CERNER MILLENNIUM Specimen to [...] City/[facility]/[place] [address] CERNER MILLENNIUM Specimen to [...] MD PATHOLOGY/CYTOLOGY ORDERABLE S Performing Organization Address [facility]/State/[place] [address] CERKERI MILLENNIUM COLONOSCOPY (01/16/2014 7:25 AM EDT) [facility] Method Time Signature COLONOSCOPY [facility] Endoscopy Patient Name: Gregory Fatima ? Procedure Date: 01/16/2014 7:25 AM ? N: [id number] ? Date of : 1945 ? Age: 68 ? Order #: [id number] ? Procedure: ? Colonoscopy Indications: ? High [...] Laterality 01/16/2014 7:25 AM EDT Angela Sotelo MANAGER WORK GENERAL SURGICAL ORDERABLES Performing Organization Address City/State/ZIP [...] Routine documented in this encounter Care Teams Contact Lens Fitter Relationship Specialty Start Date End Date Angela Sotelo APRN PCP - General 01/25/13 04/15/[address] [place] [address] documented as of this encounter
--- OUTSIDE RECORDS SUMMARY | 2022-02-13 11:20 | XMS_ITS | Encounter Summary ---
:1945 Author Organization [facility] [place] [address] Care Team Providers Name Role Phone MiyaLokeshAngela STACIE Primary Care Provider Encounter Details Date Type Department Care Team Description 01/16/2014 Hospital Encounter Gastroenterology at [facility] Nohemi Swann, [facility] [place] [address] [facility] [phone] [facility] GASTROENTEROLOGY DEPT. [place], [place] [address] Social History Tobacco Use Types [...] you need to be checked. Wednesday[facility]Wednesday Clinic [phone] 8a-5p Same Day Endo [phone] 7a-8p Otherwise contact [phone] and ask to speak to the hydro plant site manager concrete boom operator Follow up care is a [place] part [...] Swann MD - 01/16/2014 9:49 AM EDT [facility] Operative Note Patient Name: Gregory Fatima : [id number] MR#: [id number] Case Date: 01/16/2014 Surgeon: Surgeon(s) and Role: * Nohemi Swann MD - Primary Preoperative diagnosis: 5 yr surv. Full procedure note is documented under the Procedure section of eDH. documented in this encounter Plan of Treatment Upcoming Encounters Date Type Specialty Care Team Description 02/19/2022 Laboratory Appointment Lab 02/19/2022 Office Visit Cardiology Liz Poole PA [facility] er Cardiology Dept [place], [place] [address] (Wo rk) 03/26/2022 Office Visit Cardiology Vitaliy Nobles MD [facility] ER CARDIOLOGY [place], [place] [address] (Wo rk) documented as of [...] Surgical Pathology Report (01/16/2014 9:53 AM EDT) [facility] Method Time Signature Surgical CERNER Pathology ? [facility] Report ? Provider: ?? NOHEMI SWANN ?Pt. Name: ?? SURINDER ALEGRE, GREGORY Mccollum ? Acc #: ?[id number] ?Pt. MRN: ?[id number] ? Col Date: ?? 4 ? /Sex: [...] Organization Address City/State/ZIP Code Phon e Number [address] [facility] Specimen to Pathology (surgical or derm) (01/16/2014 9:53 AM EDT) Specimen Anatomical Collection Method Collection Time Receive d Time (Source) Location / / Volume Laterality AP Specimen 01/16/2014 9:53 AM 201 4 9:53 EDT AM EDT Narrative CERNER MILLENNIUM - 01/16/2014 9:53 AM E DT Specimen requisition ordered. ??Separate Pathology report to follow Nohemi Swann MD PATHOLOGY/CYTOLOGY ORDERABLE S Performing Organization Address City/State/[facility] Code Phon e Number [address] CERNER MILLENNIUM Specimen to [...] Organization Address City/State/[place] [address] CERKERI MILLENNIUM COLONOSCOPY (01/16/2014 7:25 AM EDT) [facility] Method Time Signature COLONOSCOPY [facility] Endoscopy Patient Name: Gregory Fatima ? Procedure Date: 01/16/2014 7:25 AM ? N: [id number] ? Date of : 1945 ? Age: 68 ? Order #: [id number] ? Procedure: ? Colonoscopy Indications: ? High [...] Routine documented in this encounter Care Teams Operation Specialist Relationship Specialty Start Date End Date Angela Sotelo APRN PCP - General 01/25/13 04/15/15 [address] [place] [address] documented as of this encounter
--- OUTSIDE RECORDS SUMMARY | 2022-02-13 11:20 | XMS_ITS | Encounter Summary ---
:1945 Author Organization [facility] [place] [address] Care Team Providers Name Role Phone MiyaAngela STACIE Primary Care Provider Reason for Visit Reason Onset Date Comments Advice Only 03/31/2013 Encounter Details Date Type Department Care Team Description 03/31/2013 Telephone Urology at [facility] Daniele Trejo III, MD Advice Only [facility] [place] [address] [place] [id number] (Wo rk) Social History Tobacco Use Types [...] 02/19/2022 Office Visit Cardiology Liz Poole PA [facility] [place] [place] [address] (Wo rk) 03/26/2022 Office Visit Cardiology Vitaliy Nobles MD [facility] ER CARDIOLOGY [place], [place] [address] (Wo rk) documented as of this encounter Visit Diagnoses Not on filedocumented in this encounter Care Teams Wad Blanking Press Adjuster Relationship Specialty Start Date End Date Angela Holliday APRN PCP - General 01/25/13 04/15/[address] [place] [address] documented as of this encounter
--- OUTSIDE RECORDS SUMMARY | 2022-02-13 11:20 | XMS_ITS | Encounter Summary ---
:1945 Author Organization [facility] [place] [address] Care Team Providers Name Role Phone Lovely Vicente MD Primary Care Provider Reason for Visit Reason Onset Date Comments Medication Refill 12/24/2016 Encounter Details Date Type Department Care Team Description 12/24/2016 Refill Endocrinology at [facility] Luz Stallings MD [facility] [place] [address] ENDOCRINOLOGY DEPT [phone] [place], [place] [address] (Wo rk) Social History Tobacco [...] PA [facility] er Cardiology Dept [place], [place] [address] (Wo rk) 03/26/2022 Office Visit Cardiology Vitaliy Nobles MD [facility] ER CARDIOLOGY [place], [place] [address] (Wo rk) documented as of this encounter Visit Diagnoses Not on filedocumented in this encounter Care Teams Traffic Court Magistrate Relationship Specialty Start Date End Date Lovely Vicente MD PCP - General 04/16/[address] [place] [address] documented as of this encounter
--- OUTSIDE RECORDS SUMMARY | 2022-02-13 11:20 | XMS_ITS | Encounter Summary ---
:1945 Author Organization [facility] [address] Care Team Providers Name Role Phone MiyaLokeshAngela STACIE Primary Care Provider Encounter Details Date Type Department Care Team Description 04/04/2013 Orders Only General Surgery at Manny Mcknight thyroid [facility] MD Eliseo carcinoma (Primary Dx) [facility] [place] [address] GENERAL SURGERY [phone] [place], [place] [address] Social History Tobacco Use Types [...] 02/19/2022 Office Visit Cardiology Liz Poole PA [facility] er Cardiology Dept [place], [place] [address] (Wo rk) 03/26/2022 Office Visit Cardiology Vitaliy Nobles MD [facility] ER CARDIOLOGY [place], [place] [address] (Wo rk) documented as of this encounter Visit Diagnoses Diagnosis Papillary thyroid carcinoma - Primary Malignant neoplasm of thyroid gland documented in this encounter Care Teams Fire Ranger Relationship Specialty Start Date End Date Angela Holliday APRN PCP - General 01/25/13 04/15/[address] [place] [address] documented as of this encounter
--- OUTSIDE RECORDS SUMMARY | 2022-02-13 11:20 | XMS_ITS | Encounter Summary ---
:1945 Author Organization [place] [address] Care Team Providers Name Role Phone MiyaAngela STACIE Primary Care Provider Encounter Details Date Type Department Care Team Description 11/27/2013 Orders Only Urology at [facility] Blade Smith, Urinary retention [facility] (Primary [place]x) [place] [address] UROLOGY DEPT [place], [place] [address] Social History Tobacco Use Types [...] [facility] er Cardiology Dept [place], [place] [address] (Wo rk) 03/26/2022 Office Visit Cardiology Vitaliy Nobles MD [facility] ER CARDIOLOGY [place], [place] [address] (Wo rk) documented as of [...] Organization Address City/State/ZIP Code Phon e Number [place] [phone] [facility] documented in this encounter Visit Diagnoses Diagnosis Urinary retention - Primary Retention of urine, unspecified documented in this encounter Care Teams Subway Train Driver Relationship Specialty Start Date End Date Angela Holliday APRN PCP - General 01/25/13 04/15/[address] [place] [address] documented as of this encounter
--- OUTSIDE RECORDS SUMMARY | 2022-02-13 11:20 | XMS_ITS | Encounter Summary ---
:1945 Author Organization [facility] [place] [address] Care Team Providers Name Role Phone Miya Angela STACIE Primary Care Provider Encounter Details Date Type Department Care Team Description 04/04/2013 Telephone Urology at [facility] Parker Sanchez MD [facility] [place] [address] UROLOGY DEPT [phone] [place], [place] [address] (Wo rk) Social History Tobacco [...] PA [facility] er Cardiology Dept [place], [place] [address] (Wo rk) 03/26/2022 Office Visit Cardiology Vitaliy Nobles MD [facility] ER CARDIOLOGY [place], [place] [address] (Wo rk) documented as of this encounter Visit Diagnoses Not on filedocumented in this encounter Care Teams Gas Plant Repairer Relationship Specialty Start Date End Date Angela Holliday APRN PCP - General 01/25/13 [address] [place] [address] documented as of this encounter
--- OUTSIDE RECORDS SUMMARY | 2022-02-13 11:20 | XMS_ITS | Encounter Summary ---
:1945 [place] [address] Care Team Providers Name Role Phone Lovely Vicente MD Primary Care Provider Reason for Visit Auth/Cert Specialty Diagnoses / Procedures Referred By Contact Refer red To Contact Diagnoses STEMI (ST elevation myocardial infarction) NSTEMI STEMI Procedures CARDIAC CATHETERIZATION NAYE IPI Referral ID Status Reason Start Date Expiration Date Visits Requ ested Visits Authorized [id number] 1 1 Encounter Details Date Type Department Care Team Description 07/05/2017 Surgery Information Technology Architect Jet Guan, CARDIAC CATHETERIZATION [facility] [place] [address] CARDIOLOGY DEPT. [phone] [place], [place] [address] (Wo rk) Social History Tobacco [...] this encounter Discharge Summaries Martha Teague S, SCISSORS GRINDER - 07/14/2017 9:38 AM EST Inpatient - Discharge Summary Patient Name: Gregory Hoang Patient Age: 72 y.o. Birthdate: 1945 Language: Qatari Race: White Ethnicity: Not nor Admit Date: [...] , @ 1:20p Patient to follow-up with Logging Crew Supervisor/heart failure team in one week. An appointment will be made for you. You may call [phone] Patient to follow-up with Cardiac Surgery, Dr. Yuan Webber, in ~ 4 weeks with CXR, EKG. Inpatient Provider Contact Information: [facility] Section of Cardiac Surgery [facility] [place] [address] FAX [phone] Discharge Diagnoses (Hospital Problems) Primary Diagnoses: CAD [...] SETUP performed by Manny Mcknight MD at [facility] OR ??? PRO CABG, ARTERIAL, SINGLE N/A 07/07/2017 @CABG, USING ARTERIAL GRAFT;SINGLE ARTERIAL GRAFT (WRVU 33.75) performed by Yuan Webber MD at [facility] OR ??? PRO CABG, ARTERY-VEIN, TWO N/A 07/07/2017 @CABG, TWO VENOUS GRAFTS & ARTERIAL GRAFT (WRVU 7.93) performed by Yuan Webber MD at [facility] OR ??? PRO COLONOSCOPY, REMV LESN, SNARE 01/16/2014 COLONOSCOPY, POLYPECTOMY, REMOVAL LESION BY SNARE performed by Nohemi Jaimes MD at [facility] ENDOSCOPY ??? PRO ENDOSCOPY W/VIDEO-ASST VEIN HARVEST, CABG Right 07/07/2017 ENDOSCOPIC HARVEST VEIN(S) FOR CABG (WRVU 0.31) performed by Yuan Webber MD at [facility] OR ??? PRO THYROIDECTOMY 03/28/2013 THYROIDECTOMY, TOTAL OR COMPLETE performed by Manny Mcknight MD at [facility] OR Prior To Admission Medications Prescriptions Prior to Admission Medication Sig Dispense Refill Last Dose ??? levothyroxine (SYNTHROID) 175 mcg Tablet Take 1 tablet by mouth daily. 90 tablet 3 07/05/2017 [id number] ??? ascorbic acid, vitamin C, (VITAMIN C) [...] hospital and ruled infor non-ST segment elevation MS. This almost certainly represents the residual of [...] Hospital Course: Gregory Hoang was admitted to [facility] on 07/05/2017 via the Cardiology Service. During his hospital course, he was taken emergently to the school laboratory technician for an ongoing STEMI. An [...] not take or discontinue any prescription or abxq-yhi-rthkobw medications without asking your doctor or pharmacist [...] day to have your insulin doses adjusted. [facility] Endocrine clinic office Discharge Instructions: Call your doctor if: You have a fever of greater than 101 degrees, shaking chills, if you develop redness or drainage from your incision sites, or if you have questions. Please call your surgeon's office if you have any discharge or drainage from your chest incision. Your surgeon, Dr. Yuan Webber and/or the Cardiac Surgery Physician Laborer Hoisting Team may be reached at . Weight: [...] Dr. Yuan Webber. You may use a [place]a Track or treadmill but avoid any pulling [...] friends, go to a movie, go to protestant, etc. Heavy activities: No hunting, skiing, jogging, snow shoveling, snowmobiling, lawn mowing, swimming, golf or tennis until after your return appointment with the surgeon. Do not ride motorcycles, [employer] tractors or horses. Avoid the use of [...] should resume a low fat, low cholesterol, [place] Islander Heart Association Diet/Diabetic diet. Driving: No [...] , @ 1:20p Patient to follow-up with Logging Crew Supervisor/heart failure team in one week. Appointment will be made for you. You may call [phone] Patient to follow-up with Cardiac Surgery, Dr. Yuan Webber, in ~ 4 weeks with CXR, EKG. Cardiac Rehabilitation: Gregory Hoang was seen today regarding participation in the outpatient Phase 2 Cardiac Rehabilitation at [facility]. The patient agrees to a referral to this program. The referral will be sent at discharge and the patient should be contacted by the Program within 1- 2 weeks from discharge. ?? Future Appointments and Orders Future Appointments Provider Department Dept Phone 09/07/2017 3:00 PM LAB, THREE L Lab 3L [facility] [phone] 09/07/2017 4:00 PM Luz Prescott MD Endocrinology at [place] [phone] Future Orders Complete By Expires EKG 12 Lead [EKG1 Custom] 08/14/2017 02/13/2018 Process Instructions: Scheduling Instructions: Questions: Which DH location will this be performed?: [place] Is a rhythm strip needed?: No If EKG Reason is Pre-op Evaluation, indicate diagnosis for surgery.: XR Chest PA & Lateral (Generic) [82591 [id number] Custom] 08/14/2017 02/13/2018 Process Instructions: Scheduling Instructions: Questions: Where will study be performed?: [place] [facility] Portable exam?: Reason for exam and clinical history: CABG x 3 Other pertinent information: Stat read required?: Date of injury if applicable: Requested Time: Referral to Cardiac Rehab [VJD132 Custom] As directed Process Instructions: If no progress note charted, please enter Clinical details in comments. Scheduling Instructions: Questions: My question or request is: s/p CABG. Cardiac rehab at [facility] Referral to Home Health - at DISCHARGE [WCL2505 CPT(R)] As directed Process Instructions: Scheduling Instructions: Comments: DOCUMENTATION FOR VNA SERVICES (INCLUDING THOSE PATIENTS WITH MEDICARE COVERAGE REQUIRING HOME VNA SERVICES AND/OR HOSPICE SERVICES) PATIENT'S LOCATION: Gregory Hoang [address] [place] [address] [place] [phone] (home) Telephone Information: Senior Manager's Name: self In discussion with the attending physician, it is certified that this patient is under their care and that they, or a Nurse Practitioner, or Physician Laborer Hoisting who is working directly with them, had [...] [facility] ([facility] [place] [employer] in [place] PHONE: [phone] FAX: [phone] RN orders: Cardiopulmonary assessment, incisional assessment, assess vital signs, assessment of rehab progress, medication management and effectiveness, home safety evaluation. Please draw INR if indicated and send result to:Dr Vicente [phone] PT ORDERS: Continue rehab for endurance, gait stability and strength with mobility and transfers. Home safety evaluation. Home exercise program if appropriate. Start of Care Date:24-48 hours after discharge SPECIAL INSTRUCTIONS: For any follow up questions, needs, or issues please call the Cardiac Surgery Office at [phone] FOR MEDICARE ONLY: (please delete this section [...] OR AFTER 07/17/2017 Signed: Martha Teague APRN [facility] Section of Cardiac Surgery [facility] [place] [address] FAX [phone] Date: 07/14/2017 CC: MD Ivania Cr Betsy, PA [address] [place] [phone] documented in this encounter Discharge Instructions Discharge [...] day to have your insulin doses adjusted. [facility] Endocrine clinic office Patient InstructionsStMartha mcdonald APRN [...] not take or discontinue any prescription or zkjb-noh-aurmqry medications without asking your doctor or pharmacist [...] day to have your insulin doses adjusted. [facility] Endocrine clinic office ? Discharge Instructions: ?? Call your doctor if: You have a fever of greater than 101 degrees, shaking chills, if you develop redness or drainage from your incision sites, or if you have questions. Please call your surgeon's office if you have any discharge or drainage from your chest incision. Your surgeon, Dr. Yuan Webber and/or the Cardiac Surgery Physician Laborer Hoisting Team may be reached at . ?? [...] Dr. Yuan Webber. You may use a [place] Track or treadmill but avoid any pulling [...] friends, go to a movie, go to protestant, etc. ?? Heavy activities: No hunting, skiing, jogging, snow shoveling, snowmobiling, lawn mowing, swimming, golf or tennis until after your return appointment with the surgeon. Do not ride motorcycles, [email or web address]'s tractors or horses. Avoid the use of [...] should resume a low fat, low cholesterol, [place]er Heart Association Diet/Diabetic diet. ?? Driving: [...] @ 1:20p ?? Patient to follow-up with Logging Crew Supervisor/heart failure team in one week. An appointment has been made for you, you can call [phone] ?? Patient to follow-up with Cardiac Surgery, Dr. Yuan Webber, in ~ 4 weeks with CXR, EKG. ? Cardiac Rehabilitation: Gregory Hoang??was seen today regarding participation in the outpatient Phase 2 Cardiac Rehabilitation at [facility]. ?? The patient agrees to a referral to this program.? The referral will be sent at discharge and the patient should be contacted by the Program within 1- 2 weeks from discharge. ? Future Appointments and Orders Future Appointments Provider Department Dept Phone ?? 09/07/2017 3:00 PM LAB, THREE L Lab 3L [facility] [phone] ?? 09/07/2017 4:00 PM Luz Prescott MD Endocrinology at [place] [phone] Future Orders Complete By Expires ?? EKG 12 Lead [EKG1 Custom] 08/14/2017 02/13/2018 ?? Process Instructions: ? Scheduling Instructions: ? Questions: ? Which location will this be performed?: [place] ?? Is a rhythm strip needed?: No ?? If EKG Reason is Pre-op Evaluation, indicate diagnosis for surgery.: ?? XR Chest PA & Lateral (Generic) [[id number] Custom] 08/14/2017 02/13/2018 ?? Process Instructions: ? Scheduling Instructions: ? Questions: ? Where will study be performed?: [facility] ?? Portable exam?: ?? Reason for exam and clinical history: CABG x 3 ?? Other pertinent information: ?? Stat read required?: ?? Date of injury if applicable: ?? Requested Time: ?? Referral to Cardiac Rehab [UPR748 Custom] As directed ? Process Instructions: ?? If no progress note charted, please enter Clinical details in comments. ?? Scheduling Instructions: ? Questions: ? My question or request is: s/p CABG. Cardiac rehab at [facility] ? Arrangements for VNA/home care: As above. [...] RN - 07/14/2017 2:34 PM EST The patient/construction sales representative has been provided a list of Home Health Agencies/DME vendors which serve their preferred geographic area. A letter describing our affiliations was reviewed with them and theywere educated about their right to choose where referrals are placed. Patient requests referral to [facility] [employer]. PHONE: [phone] FAX: [phone] Expected date of discharge: 07/14 Referral routed to the Retail And Promotions Coordinator for matching with agency/vendor and to provide [...] day to have your insulin doses adjusted. [facility] Endocrine clinic office Kathie Carrera APRN [facility] Endocrinology Diabetes Management Pager [phone] minutes of this 35 minute visit was spent with the patient in counseling on diabetes and treatment plan, reviewing all glucose and insulin data as well as relevant laboratory results with the patient, and coordination of care on the inpatient unit including nursing and primary team. Zulma Andres RN - 07/14/2017 10:30 AM EST The patient/construction sales representative has been provided a list of Home Health Agencies/DME vendors which serve their preferred geographic area. A letter describing our affiliations was reviewed with them and theywere educated about their right to choose where referrals are placed. Patient requests referral to : Yasmani [facility]nu[facility] ([facility] [place] [facility] in [place]) PHONE: [phone] FAX: [phone]. Expected date of discharge: 07/14/17 Referral routed to the Retail And Promotions Coordinator for matching with agency/vendor and to provide [...] hours. If BG remains greater than 240, qamsku37 units (no more than three times) &??call [...] #6 s/p CABG X3. FSBG 80 at [place], reports no symptoms but did drink some [...] Will continue to follow Katerin Azul APRN [facility] Endocrinology Diabetes Management Pager [phone] minutes of this 25 minute visit [...] of infiltration/extravasation Discussed plan of care with CAKE TESTER and RN. Elevate exrtemity and apply intermittent Warm compresses. Name of MD contacted Dr. Shaw Brown 07/13/2017 @ 0655 Name of RN contacted Ale Rangel RN Name of Pharmacist if consulted NA Name of Plastics MD ( if consulted) NA (Mandatory photo for infiltrations/ extravasations scoring a stage 2 or greater, but recommended forstage 1)( include measuring tape and identifier in the photo) PAINTER DECORATOR CARING FOR THIS PATIENT WILL CONTINUE TO [...] measuring tape and identifier in the photo) PAINTER DECORATOR CARING FOR THIS PATIENT WILL CONTINUE TO [...] regard to both infiltrates addressed by this mortgage loan underwriter.All of Mr. Hoang's responses were entirely appropriate. Images of infiltrates attached here. Martha Sharp APRN - 07/13/2017 8:01 AM EST Cardiac Surgery Progress Note: ID: [id number] 72 year old male POD#6 s/p CABGx3 [...] discharge. ?? I have met with the patient/construction sales representative to discuss discharge planning needs. I have provided the [facility], Office of Care Management letter from the Custodial Maintenance Worker pertaining to rehab referrals. I have also provided a letter describing our affiliations within the [facility] and educated them about their right to choose where referrals are placed. ?? I reviewed the different levels of rehab including SNF, swing, acute and LTAC with the patient/construction sales representative. ?? The patient/construction sales representative has been provided a list of facilities within their preferred geographic area. ?? I have requested that the patient/construction sales representative provide at least three choices for referral. ?? The patient/construction sales representative have requested referrals to: ?? 1. . ?? 2. [facility] ?? 3. More to be entered ?? Expected date of discharge: 07/14 Note routed to Retail And Promotions Coordinator who will communicate referrals to facilities and [...] hours. If BG remains greater than 240, glaoli47 units (no more than three times) & call for new basal insulin orders. ??If less than 240 after two hours, give no insulin and resume prior schedule. Will continue to follow Katerin Azul APRN [facility] Endocrinology Diabetes Management Pager [phone] 20 minutes of this 35 minute visit was spent with the patient in counseling on diabetes and treatment plan, reviewing all glucose and insulin data as well as relevant laboratory results with the patient, and coordination of care on the inpatient unit including nursing and primary team. Makayla Stevenson APRN - 07/12/2017 9:52 AM EST Cardiac Surgery Progress Note: ID: [id number] 72 year old male POD#5 s/p CABGx3 [...] for HTN, CHF, CAD, nSTEMI, IDDM, MARIA VICTORAI, BPH, thyroid carcinoma s/p thyroidectomy melanoma Continue [...] 07/11/2017 7:18 PM EST Patient arrived from [facility]. VSS. MSI dressing pulled off with [...] hours. If BG remains greater than 240, oapflu64 units (no more than three times) & [...] AM EST Cardiac Surgery Progress Note: ID: [id number] 72 year old male POD#4 s/p CABGx3 [...] hours. If BG remains greater than 240, iczqph57 units (no more than three times) & [...] AM EST Cardiac Surgery Progress Note: ID: [id number] 72 year old male POD#3 s/p CABGx3 [...] Gas) No results found for: PHART, PO2ART, CLH9UAR Assessment/Plan: 72 year old male POD#3 s/p [...] Mami Thao - 07/09/2017 6:29 PM EST Shower Attendant Encounter Note Patient Name: Gregory Hoang : [id number] MR#: [id number] Admit Date: 07/05/2017 4:20 PM Hospital Day 4 days Narrative: Patient was sitting in chair, hugging heart pillow, opened his eyes, nodding to come into room Assessment: Patient was sleepy. Intervention and Outcome: Introduced postdoctoral scientist services and patient reached his hand out in appreciation. Follow-up: Shower Attendant remains available for support. Time in Direct [...] 07/09/2017 10:45 AM EST Report given to billing and accounting staff assistant to cover care Maddison Cee PA - 07/09/2017 9:00 AM EST Cardiac Surgery Progress Note: ID: [id number] 72 year old male POD#2 s/p CABGx3 [...] Attending Surgeon on rounds. Signed: STEPHANIE Iqbal [facility] Section of Cardiac Surgery Date: [...] when IABP d/c'ed. Gretchen Carolina, PT Pager [phone] Maddison Cee PA - 07/08/2017 11:27 AM EST Cardiac Surgery Progress Note: ID: [id number] 72 year old male POD#1 s/p CABGx3 [...] Attending Surgeon on rounds. Signed: STEPHANIE Iqbal [facility] Section of Cardiac Surgery Date: [...] in place in R femoral. No hematoma. ATTENDING PSYCHIATRIST- Intact Psych- Anxious Skin- Dry, no peripheral [...] intact. IABP in place in R femoral. ATTENDING PSYCHIATRIST- Intact Psych- Anxious Skin- Dry, no peripheral [...] note for details. DAPHNE SHAHID MD Pager [phone] Jet Mckenna MD - 07/05/2017 6:48 PM EST Preliminary Cardiac Catheterization Procedure Note: Procedure(s) performed: Left heart cath, IABP insertion Access: Right OPERATING THEATRE TECHNICIAN-->8fr IABP A time-out was conducted prior to [...] effect. Heparin gtt maintained. Pt transferred to school laboratory technician. documented in this encounter H&P Notes Daphne Shahid MD - 07/05/2017 6:08 PM EST CARDIOLOGY HISTORY & PHYSICAL EXAM Date of Admission: 07/05/2017 ( Hospital Day 0 days ) Responsible Attending: Daphne Shahid MD PCP: Lovely Vicente MD PCP#: [phone] Patient Active Problem List Diagnosis Code ??? [...] load with heparin drip and transferred to [facility]. While there, continued sob, question of chest pain. Stat TTE showing WMA diffusely and EF around 20%. No significant valvular disease. Taken to the school laboratory technician urgently for ongoing STEMI. [facility] Labs: INR 1.0 WBC 5.88 Hgb 12.9 [...] monitor I/O - s/p lasix in the school laboratory technician, redose to aim net neg [...] Medicine, PGY-2 Cardiology S1, Team Pager # [phone] CARDIOLOGY ATTENDING NOTE Patient: Gregory Hoang Date [...] amenable for PCI. DAPHNE SHAHID MD Pager [phone] documented in this encounter Miscellaneous Notes Consult Note - Daphne Shahid MD - 07/14/2017 11:46 AM EST Heart Failure Service Inpatient Consult Note Gregory Hoang Date of : 1945 Age: 72 y.o. Today's date: 07/14/17 PCP: Lovely Vicente MD FLOORING MACHINE OPERATOR: None Place of Service: [facility] Reason for Consult: Dr. Webber has requested [...] SETUP performed by Manny Mcknight MD at [facility] OR ??? PRO CABG, ARTERIAL, SINGLE N/A 07/07/2017 @CABG, USING ARTERIAL GRAFT;SINGLE ARTERIAL GRAFT (WRVU 33.75) performed by Yuan Webber MD at [facility] OR ??? PRO CABG, ARTERY-VEIN, TWO N/A 07/07/2017 @CABG, TWO VENOUS GRAFTS & ARTERIAL GRAFT (WRVU 7.93) performed by Yuan Webber MD at [facility] OR ??? PRO COLONOSCOPY, REMV LESN, SNARE 01/16/2014 COLONOSCOPY, POLYPECTOMY, REMOVAL LESION BY SNARE performed by Nohemi Jaimes MD at [facility] ENDOSCOPY ??? PRO ENDOSCOPY W/VIDEO-ASST VEIN HARVEST, CABG Right 07/07/2017 ENDOSCOPIC HARVEST VEIN(S) FOR CABG (WRVU 0.31) performed by Yuan Webber MD at [facility] OR ??? PRO THYROIDECTOMY 03/28/2013 THYROIDECTOMY, TOTAL OR COMPLETE performed by Manny Mcknight MD at [facility] OR Outpt Meds: Current Outpatient Prescriptions Medication [...] following studies: EKG 07/14/17: NSR 75 bpm, FILTER TENDER anterior infarct, LAD CXR 07/11/17: FINDINGS: Sternotomy wires. The patient has been extubated, left chest tube removed, and [place]-Suzi catheter removed since the 07/07/2017 study. Atelectasis [...] was discussed with Zehra. Jaden Kelley MD Bracelet Former Pager [phone] CARDIOLOGY ATTENDING NOTE Patient: Gregory Hoang Date [...] heart failure clinic. DAPHNE SHAHID MD Pager [phone] Plan of Care - Alden Chavarria PTA [...] home with assist Alden Chavarria PTA Pager: [phone] Inpatient Physical Therapy Problem: Acute Rehab Services [...] sit/sit to supine -- Bed Mobility Goal, Henderson Level supervision required -- Bed Mobility Goal, [...] - 3 days -- Gait Training Goal, Henderson Level supervision required -- Gait Training Goal, [...] days -- Transfer Training Goal, Activity Type hlf-fd-zwdhd/znyxg-ze-qcp;lkk-bj-kyeyd/ioydd-zk-ynm;toilet -- Transfer Train Goal, Henderson Level supervision required -- Transfer Training Goal, [...] keeping present for 2 days per family. Plush Cutter noted of frustrations, house keeping sent to room. Patient offered showered twice, refused. at bedside, frustrated that shower not complete, informed that patient had refused several times. requesting to see RESIDENTIAL TREATMENT SPECIALIST, paged sent to Martha, will come to bedside (middle of consult). not willing to wait, Martha notified that family had gone home. Encouraged to come for morning rounds a t 8am. Diabetes team at bedside - insulin adjustments made. Call cabello in reach. Continue to monitor. PLAN MOVING FORWARD: Ambulate, dressing changes BID, Please change drsg at 4am per Martha RESIDENTIAL TREATMENT SPECIALIST request. INDIVIDUALIZED FALL PREVENTION INTERVENTIONS: Patient-specific fall [...] levels on the lower side, 60ml of [place] juice given after a FS of 80. [...] 07/13/17 0502 Interdisciplinary Rounds/Family Conf Participants case planner;dietitian/nutrition services;nursing;occupational therapy;patient;pharmacy;physical therapy;physician Plan of Care - [...] monitoring required during toileting and ADLs]: RN CAKE TESTER Surveillance [continuous indirect monitoring]: Barrett Monitor CPG [...] Anticipated Discharge Disposition: home with assist Pager: [phone] CLARISSA SEGAL, PT 07/12/2017 Physical Therapy Rehabilitation [...] to sit/sit to supine Bed Mobility Goal, Henderson Level supervision required Bed Mobility Goal, Additional Goal adheres to psternal precautions for transfer Goal: Gait Training Goal Stand Alone Therapy Goal Outcome: Ongoing (Interventions Implemented as Appropriate) 07/12/17 1225 Gait Training Goal Gait Training Goal, Date Established 07/12/17 Gait Training Goal, Time to Achieve 2 - 3 days Gait Training Goal, Henderson Level supervision required Gait Training Goal, Assist [...] 3 days Transfer Training Goal, Activity Type qyo-xt-npoay/vjxhn-cg-mgu;esw-nj-suztl/rjdwl-tq-knt;toilet Transfer Train Goal, Henderson Level supervision required Transfer Training Goal, Additional Goal adheres to sternal precautions during transfer Consult Note - Octavia Vaughn RN - 07/12/2017 10:50 AM EST [facility] CARDIAC REHABILITATION Gregory Hoang was seen today regarding participation in the outpatient Phase 2 Cardiac Rehabilitation at [facility]. The patient agrees to a referral to [...] IV site, amio to other piv and FILM AND VIDEO EDITOR at bedside to help assess, IV removed. [...] staff, he stood and marched in place. [place] weak, wanting to sit back down. Remained [...] Health/Prescription Coverage: Primary Insurance: MEDICARE Secondary Insurance: [employer] MD Prescription Coverage: yes Preferred Pharmacy: [facility] Other: none Primary Care Provider: Lovely Vicente MD [phone] Patient/Caregiver Goals of Treatment:live and get my breath back Potential Needs for Transition of Care: Rehab/SNF: St. ; [facility] Home Health: NA DME: TBD Dialysis: na Community Resources: available Transportation: yes Other: none Anticipated Barriers to Discharge/Special Considerations: none Plan: Likely SNF Rehab before home A member of the Care Management team will continue to monitor progress, follow for continuity of care and assist with transition of care planning. ERLIN Weiss Pager: [phone] Consult Note - Katerin Azul RN - [...] management and to provide a review of [facility] diabetes care. Diabetes History: Gregory Hoang has [...] to d/c gtt and start CF. terminal computer operator diabetes care: Medications - Outpatient treatment regimen recommendations pending based on the hospital course. Monitoring - continue BG tid ac & hs Diet - low fat/low carb diet Exercise - weight-bearing exercise 30 min/day, as tolerated Thank you for allowing us to provide care for your patient W/E coverage, Dr. Jeane Tatum, pager [phone] Katerin Azul APRN Endocrinology Diabetes Management Pager [phone] Plan of Care - Stephanie Godoy, RN [...] Webber MD - 07/07/2017 6:27 PM EST [facility] Operative Note Patient Name: Gregory Hoang : [id number] MR#: [id number] Case Date: 07/07/2017 Surgeon: Surgeon(s) and Role: * Yuan Webber MD - Primary * Michael Drake PA - Physician Laborer Hoisting * Linda Flores PA - Physician Laborer Hoisting Preoperative diagnosis: 3VD Postoperative diagnosis: CAD, severe [...] Operative Note Patient Name: Gregory Hoang : [id number] MR#: [id number] Case Date: 07/07/2017 Surgeon: Surgeon(s) and Role: * Yuan Webber MD - Primary * Michael Drake PA - Physician Laborer Hoisting * Linda Flores PA - Physician Laborer Hoisting Preoperative diagnosis: 3VD Postoperative diagnosis: CAD, severe [...] (reference Cardiac: ACS (Acute Coronary Syndrome) (Adult) [facility]). 07/07/17621 Cardiac: ACS (Acute Coronary Syndrome) Problems [...] major CV events such as , stroke, MS, repeat revascularization compared to PCI). In this [...] Hahn, MS3 [employer] [facility] Cardiology S1 (Pager [phone]) Plan of Care - Emelia Ibarra RN [...] hospital and ruled infor non-ST segment elevation MS. This almost certainly represents the residual of [...] MD at [facility] ENDOSCOPY ??? PRO THYROIDECTOMY 03/28/2013 THYROIDECTOMY, TOTAL OR COMPLETE performed by Manny Mcknight MD at [facility] MAIN OR Social History: Social History [...] with other involved physicians Yuan Webber MD [phone] Med Student Progress Note - Katty Hahn [...] major CV events such as , stroke, MS, repeat revascularization compared to PCI). 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 ?? #Home Meds - continue levothyroxine 175mcg - CPAP at night ?? # Routine - DVT PPx: heparin drip - Diet: Healthy heart diet, NPO at midnight for CABG tomorrow - Code Status: FULL - Dispo: CVCC Katty Hahn, M3 [facility] Cardiology S1 (Pager [phone]) Plan of Care - Stephanie Godoy RN - 07/06/2017 5:00 AM EST Problem: Patient Care Overview Goal: Plan of Care Review 07/06/17 7706 Coping/Psychosocial Plan Of Care Reviewed With patient;family [...] in urinal without difficulty. Lasix given in school laboratory technician, 1.4 L out at this [...] Outcome: Ongoing (Interventions Implemented as Appropriate) 07/06/17 7176 Cardiac: ACS (Acute Coronary Syndrome) Problems Assessed [...] Liz Poole PA [facility] er Cardiology Dept [place], [place] [address] (Wo rk) 03/26/2022 Office Visit Cardiology Vitaliy Nobles MD [facility] ER CARDIOLOGY [place], [place] [address] (Wo rk) Scheduled Orders Name [...] procedure are i n the results section. MEDICAL TECHNICAL WRITER SCAN 07/15/2017 12:00 Res ults for this [...] Routine 07/08/2017 4:00 Results f or this ([facility]) AM EST procedure are i n the [...] Timed 07/06/2017 2:10 Results f or this ([facility]) PM EST procedure are i n the [...] section. TYPE AND SCREEN Routine 07/06/2017 12:00 ([facility]/SHANDA) PM EST APTT STAT 07/06/2017 11:24 Results [...] Routine 07/06/2017 8:10 Results f or this ([facility]) AM EST procedure are i n the [...] Routine 07/05/2017 8:20 Results f or this ([facility]) PM EST procedure are i n the [...] Timed 07/05/2017 4:55 Results f or this ([facility]) PM EST procedure are i n the [...] Teague APRN IMG DX ORDERABLES SCAN DOC: MEDICAL TECHNICAL WRITER (07/15/2017 12:00 AM EST) Narrative 07/15/2017 12:00 [...] Signature POC Glucose 186 65 - 199 [facility] mg/dL [facility] LABORATORY Comment: Supplemental ranges: <140 mg/dL before meals <180 mg/dL all other times of the day Specimen Anatomical Collection Method Collection Time Receive d Time (Source) Location / / Volume Laterality Blood specimen 07/14/2017 11:56 7 (specimen) AM EST 11:56 AM EST Yuan Webber MD POINT OF CARE TEST ORDERABLE S Performing Organization Address City/State/ZIP Code Phon e Number [address] POCT Glucose (07/14/2017 7:52 AM EST) athologist Signature POC Glucose 126 65 - 199 [facility] mg/dL [facility] LABORATORY Comment: Supplemental ranges: <140 mg/dL before meals <180 mg/dL all other times of the day Specimen Anatomical Collection Method Collection Time Receive d Time (Source) Location / / Volume Laterality Blood specimen 07/14/2017 7:52 AM 017 7:52 (specimen) EST AM EST Yuan Webber MD POINT OF CARE TEST ORDERABLE S Performing Organization Address City/State/[place] [address] (ABNORMAL) Prothrombin Time (07/14/2017 4:46 AM EST) athologist Signature PT 26.4 (H) 11.8 - 14.0 [facility] LABORATORY INR 2.4 (H) 0.9 - 1.1 [facility] [...] Resulting Agency Comment Spec In Lab Makayla [place] STACIE HEMATOLOGY ORDERABLES Performing Organization Address [facility] Code Phon e Number [address] Potassium (07/14/2017 4:46 AM EST) athologist [facility] Potassium 4.3 3.5 - 5.0 [facility] mmol/L [facility] LABORATORY Comment: Please note: ??Patients [...] EST Resulting Agency Comment Spec [facility] Performing Organization Address City/[facility] Phon e Number [address] POCT Glucose (07/14/2017 4:34 AM EST) athologist [facility] POC Glucose 115 65 - 199 [facility] mg/dL [facility] LABORATORY Comment: Supplemental ranges: <140 mg/dL before meals <180 mg/dL all other times of the day Specimen Anatomical Collection Method Collection Time Receive d Time (Source) Location / / Volume Laterality Blood specimen 07/14/2017 4:34 AM 017 4:34 (specimen) EST AM EST Yuan Webber MD POINT OF CARE TEST ORDERABLE S Performing Organization Address City/State/[place] [address] POCT Glucose (07/13/2017 11:33 PM EST) athologist Signature POC Glucose 132 65 - 199 [place] mg/dL [facility] LABORATORY Comment: Supplemental ranges: <140 mg/dL before meals <180 mg/dL all other times of the day Specimen Anatomical Collection Method Collection Time Receive d Time (Source) Location / / Volume Laterality Blood specimen 07/13/2017 11:33 7 (specimen) PM EST 11:33 PM EST Yuan Webber MD POINT OF CARE TEST ORDERABLE S Performing Organization Address City/State/[place] [address] POCT Glucose (07/13/2017 9:25 PM EST) athologist Signature POC Glucose 121 65 - 199 [place] mg/dL [facility] LABORATORY Comment: Supplemental ranges: <140 mg/dL before meals <180 mg/dL all other times of the day Specimen Anatomical Collection Method Collection Time Receive d Time (Source) Location / / Volume Laterality Blood specimen 07/13/2017 9:25 PM 017 9:25 (specimen) EST PM EST Yuan Webber MD POINT OF CARE TEST ORDERABLE S Performing Organization Address City/State/[place] [address] POCT Glucose (07/13/2017 4:55 PM EST) athologist Signature POC Glucose 79 65 - 199 [place] mg/dL [facility] LABORATORY Comment: Supplemental ranges: <140 mg/dL before meals <180 mg/dL all other times of the day Specimen Anatomical Collection Method Collection Time Receive d Time (Source) Location / / Volume Laterality Blood specimen 07/13/2017 4:55 PM 017 4:55 (specimen) EST PM EST Yuan Webber MD POINT OF CARE TEST ORDERABLE S Performing Organization Address City/[facility]/[place] [address] POCT Glucose (07/13/2017 11:16 AM EST) athologist Signature POC Glucose 163 65 - 199 [facility] mg/dL [facility] LABORATORY Comment: Supplemental ranges: <140 mg/dL before meals <180 mg/dL all other times of the day Specimen Anatomical Collection Method Collection Time Receive d Time (Source) Location / / Volume Laterality Blood specimen 07/13/2017 11:16 7 (specimen) AM EST 11:16 AM EST Yuan Webber MD POINT OF CARE TEST ORDERABLE S Performing Organization Address City/[facility]/[place] [address] POCT Glucose (07/13/2017 8:07 AM EST) athologist Signature POC Glucose 96 65 - 199 [facility] mg/dL [facility] LABORATORY Comment: Supplemental ranges: <140 mg/dL before meals <180 mg/dL all other times of the day Specimen Anatomical Collection Method Collection Time Receive d Time (Source) Location / / Volume Laterality Blood specimen 07/13/2017 8:07 AM 017 8:07 (specimen) EST AM EST Yuan Webber MD POINT OF CARE TEST ORDERABLE S Performing Organization Address City/State/[place] [address] (ABNORMAL) Prothrombin Time (07/13/2017 4:26 AM EST) P athologist Signature PT 20.8 (H) 11.8 - 14.0 [facility] LABORATORY INR 1.8 (H) 0.9 - 1.1 [facility] [...] Agency Comment Spec In Lab Makayla [place] [facility] HEMATOLOGY ORDERABLES Performing Organization Address City/State/ZIP [place] [address] (ABNORMAL) Basic Metabolic Panel (non-fasting) (07/13/2017 4:26 AM EST) P athologist Signature Glucose Lvl 95 65 - 199 [facility] mg/dL [facility] LABORATORY Comment: Diabetes: >=200 mg/dL plus symp toms BUN 25 (H) 10 - 20 mg/dL [facility] LABORATORY Creatinine 1.19 0.80 - 1.50 mg/dL [facility] LABORATORY Sodium 143 135 - 145 mmol/L [facility] LABORATORY Potassium 3.7 3.5 - 5.0 mmol/L [facility] LABORATORY Comment: Please note: ??Patients with WBC >100,00 0 may have falsely elevated Potassium levels. ??For accurate Potassium quantif ication in these patients send serum separator tube (gold top) for subsequent determinations. ??Contact the Clinical Chemistry Laboratory if there are any qu estions. Chloride 104 98 - 107 mmol/L [facility] LABORATORY CO2 26 22 - 31 mmol/L [facility] LAB[facility] Anion Gap 13 5 - 15 mmol/L [facility] LABOR[facility]ORY Calcium 7.7 (L) 8.5 - 10.5 mg/dL [facility] LABOR[facility] Estimated GFR 60 >=60 [facility] LABORATORY Comment: The reported eGFR should be multiplied b y 1.2 for patients. The MDRD is not an appropriate measure o f renal function for patients with body mass extremes or in patients with acute kidney failure. http://[employer]/DHnkdep http://[employer]com/DHMCnkf Specimen Anatomical Collection Method Collection Time Receive d Time (Source) Location / / Volume Laterality Blood specimen 07/13/2017 4:26 AM 017 4:46 (specimen) EST AM EST Resulting Agency Comment Spec In Lab Makayla Wilson APRN CHEMISTRY ORDERABLES Performing Organization Address City/State/ZIP Code Phon e Number [address] POCT Glucose (07/13/2017 3:52 AM EST) athologist Signature POC Glucose 93 65 - 199 [facility] LABORATORY Comment: Supplemental ranges: <140 mg/dL before meals <180 mg/dL all other times of the day Specimen Anatomical Collection Method Collection Time Receive d Time (Source) Location / / Volume Laterality Blood specimen 07/13/2017 3:52 AM 017 3:52 (specimen) EST AM EST Yuan Webber MD POINT OF CARE TEST ORDERABLE S Performing Organization Address City/[facility]/ZIP Code Phon e Number [address] POCT Glucose (07/13/2017 12:21 AM EST) athologist Signature POC Glucose 80 65 - 199 [facility] LABORATORY Comment: Supplemental ranges: <140 mg/dL before meals <180 mg/dL all other times of the day Specimen Anatomical Collection Method Collection Time Receive d Time (Source) Location / / Volume Laterality Blood specimen 07/13/2017 12:21 7 (specimen) AM EST 12:21 AM EST Yuan Webber MD POINT OF CARE TEST ORDERABLE S Performing Organization Address City/[facility]/ZIP Code Phon e Number [address] POCT Glucose (07/12/2017 8:22 PM EST) athologist Signature POC Glucose 119 65 - 199 [place] mg/dL [facility] LABORATORY Comment: Supplemental ranges: <140 mg/dL before meals <180 mg/dL all other times of the day Specimen Anatomical Collection Method Collection Time Receive d Time (Source) Location / / Volume Laterality Blood specimen 07/12/2017 8:22 PM 017 8:22 (specimen) EST PM EST Yuan Webber MD POINT OF CARE TEST ORDERABLE S Performing Organization Address City/State/ZIP Code Phon e Number [address] POCT Glucose (07/12/2017 4:02 PM EST) athologist Signature POC Glucose 114 65 - 199 [facility] mg/dL [facility] LABORATORY Comment: Supplemental ranges: <140 mg/dL before meals <180 mg/dL all other times of the day Specimen Anatomical Collection Method Collection Time Receive d Time (Source) Location / / Volume Laterality Blood specimen 07/12/2017 4:02 PM 017 4:02 (specimen) EST PM EST Yuan Webber MD POINT OF CARE TEST ORDERABLE S Performing Organization Address City/State/ZIP Code Phon e Number [address] POCT Glucose (07/12/2017 11:28 AM EST) athologist Signature POC Glucose 164 65 - 199 [facility] mg/dL [facility] LABORATORY Comment: Supplemental ranges: <140 mg/dL before meals <180 mg/dL all other times of the day Specimen Anatomical Collection Method Collection Time Receive d Time (Source) Location / / Volume Laterality Blood specimen 07/12/2017 11:28 7 (specimen) AM EST 11:28 AM EST Yuan Webber MD POINT OF CARE TEST ORDERABLE S Performing Organization Address City/State/ZIP Code Phon e Number [address] POCT Glucose (07/12/2017 7:34 AM EST) athologist Signature POC Glucose 109 65 - 199 [place] mg/dL [facility] LABORATORY Comment: Supplemental ranges: <140 mg/dL before meals <180 mg/dL all other times of the day Specimen Anatomical Collection Method Collection Time Receive d Time (Source) Location / / Volume Laterality Blood specimen 07/12/2017 7:34 AM 017 7:34 (specimen) EST AM EST Yuan Webber MD POINT OF CARE TEST ORDERABLE S Performing Organization Address City/State/ZIP [place] [address] (ABNORMAL) Basic Metabolic Panel (non-fasting) (07/12/2017 4:11 AM EST) P athologist Signature Glucose Lvl 92 65 - 199 [facility] mg/dL [facility] LABORATORY Comment: Diabetes: >=200 mg/dL plus symp toms BUN 31 (H) 10 - 20 mg/dL [facility] LABORATORY Creatinine 1.23 0.80 - 1.50 mg/dL [facility] LABORATORY Sodium 145 135 - 145 mmol/L [facility] Potassium Not Perf 3.5 - 5.0 mmol/L [facility] Comment: Duplicate order Please note: ??Patients with WBC >100,00 0 may have falsely elevated Potassium levels. ??For accurate Potassium quantif ication in these patients send serum separator tube (gold top) for subsequent determinations. ??Contact the Clinical Chemistry Laboratory if there are any qu estions. Chloride 106 98 - 107 mmol/L [facility]OR[facility] CO2 Not Perf 22 - 31 mmol/L [facility]OR[facility] Comment: Add-on request. Sample too old to perform test. Anion Gap Not Calculated 5 - 15 mmol/L [facility] LABOR[facility]ORY Calcium 8.1 (L) 8.5 - 10.5 mg/dL [facility] Estimated GFR 58 (L) >=60 [facility] Comment: The reported eGFR should be multiplied b y 1.2 for patients. The MDRD is not an appropriate measure o f renal function for patients with body mass extremes or in patients with acute kidney failure. http://[employer]/DHnkdep http://[employer]/DHMCnkf Specimen Anatomical Collection Method Collection Time Receive d Time (Source) Location / / Volume Laterality Blood specimen 07/12/2017 4:11 AM 017 8:57 (specimen) EST AM EST Resulting Agency Comment Spec In Lab [facility] ORDERABLES Performing Organization Address [facility] [place] [address] (ABNORMAL) Prothrombin Time (07/12/2017 4:11 AM EST) P athologist Signature PT 15.4 (H) 11.8 - 14.0 [facility] LABORATORY INR 1.2 (H) 0.9 - 1.1 [facility] [...] Resulting Agency Comment Spec In Lab Makayla [facility] HEMATOLOGY ORDERABLES Performing Organization Address City/[facility] [place] [address] Potassium (07/12/2017 4:11 AM EST) P athologist Signature Potassium 3.8 3.5 - 5.0 [facility] mmol/L [facility] LABORATORY Comment: Please note: ??Patients [...] Wilson APRN CHEMISTRY ORDERABLES Performing Organization Address City/[facility]/ZIP Code Phon e Number [address] POCT Glucose (07/12/2017 4:10 AM EST) athologist Signature POC Glucose 90 65 - 199 [place] mg/dL [facility] LABORATORY Comment: Supplemental ranges: <140 mg/dL before meals <180 mg/dL all other times of the day Specimen Anatomical Collection Method Collection Time Receive d Time (Source) Location / / Volume Laterality Blood specimen 07/12/2017 4:10 AM 017 4:10 (specimen) EST AM EST Yuan Webber MD POINT OF CARE TEST ORDERABLE S Performing Organization Address City/[facility]/ZIP Code Phon e Number [address] POCT Glucose (07/11/2017 11:57 PM EST) athologist Signature POC Glucose 98 65 - 199 [place] mg/dL [facility] LABORATORY Comment: Supplemental ranges: <140 mg/dL before meals <180 mg/dL all other times of the day Specimen Anatomical Collection Method Collection Time Receive d Time (Source) Location / / Volume Laterality Blood specimen 07/11/2017 11:57 7 (specimen) PM EST 11:57 PM EST Yuan Webber MD POINT OF CARE TEST ORDERABLE S Performing Organization Address City/[facility]/ZIP Code Phon e Number [address] POCT Glucose (07/11/2017 8:32 PM EST) athologist Signature POC Glucose 146 65 - 199 [facility] mg/dL [facility]OR[facility]ORY Comment: Supplemental ranges: <140 mg/dL before meals <180 mg/dL all other times of the day Specimen Anatomical Collection Method Collection Time Receive d Time (Source) Location / / Volume Laterality Blood specimen 07/11/2017 8:32 PM 017 8:32 (specimen) EST PM EST Yuan Webber MD POINT OF CARE TEST ORDERABLE S Performing Organization Address City/State/[place] [address] XR Chest PA & [...] e xtubated, left chest tube removed, and [place]-Suzi catheter removed since the study. Atelectasis at [...] e xtubated, left chest tube removed, and [place]-Suzi catheter removed since the study. Atelectasis at [...] (H) 65 - 199 [place] mg/dL [facility]ORY Comment: Supplemental ranges: <140 mg/dL before meals <180 mg/dL all other times of the day Specimen Anatomical Collection Method Collection Time Receive d Time (Source) Location / / Volume Laterality Blood specimen 07/11/2017 4:05 PM 017 4:05 (specimen) EST PM EST Yuan Webber MD POINT OF CARE TEST ORDERABLE S Performing Organization Address City/State/[place] [address] POCT Glucose (07/11/2017 11:55 AM EST) athologist Signature POC Glucose 176 65 - 199 [place] mg/dL [facility] LABOR[facility]ORY Comment: Supplemental ranges: <140 mg/dL before meals <180 mg/dL all other times of the day Specimen Anatomical Collection Method Collection Time Receive d Time (Source) Location / / Volume Laterality Blood specimen 07/11/2017 11:55 7 (specimen) AM EST 11:55 AM EST Yuan Webber MD POINT OF CARE TEST ORDERABLE S Performing Organization Address City/State/[place] [address] POCT Glucose (07/11/2017 7:53 AM EST) athologist Signature POC Glucose 189 65 - 199 [place] mg/dL [facility] Comment: Supplemental ranges: <140 mg/dL before meals <180 mg/dL all other times of the day Specimen Anatomical Collection Method Collection Time Receive d Time (Source) Location / / Volume Laterality Blood specimen 07/11/2017 7:53 AM 017 7:53 (specimen) EST AM EST Yuan Webber MD POINT OF CARE TEST ORDERABLE S Performing Organization Address City/State/ZIP Code Phon e Number [address] POCT Glucose (07/11/2017 4:22 AM EST) athologist Signature POC Glucose 151 65 - 199 [place] mg/dL [facility] Comment: Supplemental ranges: <140 mg/dL before meals <180 mg/dL all other times of the day Specimen Anatomical Collection Method Collection Time Receive d Time (Source) Location / / Volume Laterality Blood specimen 07/11/2017 4:22 AM 017 4:22 (specimen) EST AM EST Yuan Webber MD POINT OF CARE TEST ORDERABLE S Performing Organization Address City/[facility]/[place] [address] Potassium (07/11/2017 2:20 AM EST) P athologist Signature Potassium 4.5 3.5 - 5.0 [facility] mmol/L [facility] Comment: Please note: ??Patients [...] Webber MD CHEMISTRY ORDERABLES Performing Organization Address City/[facility]/ZIP Code Phon e Number [address] POCT Glucose (07/11/2017 12:17 AM EST) P athologist Signature POC Glucose 162 65 - 199 [facility] Comment: Supplemental ranges: <140 mg/dL before meals <180 mg/dL all other times of the day Specimen Anatomical Collection Method Collection Time Receive d Time (Source) Location / / Volume Laterality Blood specimen 07/11/2017 12:17 7 (specimen) AM EST 12:17 AM EST Yuan Webber MD POINT OF CARE TEST ORDERABLE S Performing Organization Address City/[facility]/[place] [address] POCT Glucose (07/10/2017 8:47 PM EST) athologist Signature POC Glucose 191 65 - 199 [place] mg/dL [facility] Comment: Supplemental ranges: <140 mg/dL before meals <180 mg/dL all other times of the day Specimen Anatomical Collection Method Collection Time Receive d Time (Source) Location / / Volume Laterality Blood specimen 07/10/2017 8:47 PM 017 8:47 (specimen) EST PM EST Yuan Webber MD POINT OF CARE TEST ORDERABLE S Performing Organization Address City/State/ZIP Code Phon e Number [address] POCT Glucose (07/10/2017 4:06 PM EST) athologist Signature POC Glucose 131 65 - 199 [place] mg/dL [facility] Comment: Supplemental ranges: <140 mg/dL before meals <180 mg/dL all other times of the day Specimen Anatomical Collection Method Collection Time Receive d Time (Source) Location / / Volume Laterality Blood specimen 07/10/2017 4:06 PM 017 4:06 (specimen) EST PM EST Yuan Webber MD POINT OF CARE TEST ORDERABLE S Performing Organization Address City/State/ZIP Code Phon e Number [address] POCT Glucose (07/10/2017 3:08 PM EST) athologist Signature POC Glucose 151 65 - 199 [place] mg/dL [facility] Comment: Supplemental ranges: <140 mg/dL before meals <180 mg/dL all other times of the day Specimen Anatomical Collection Method Collection Time Receive d Time (Source) Location / / Volume Laterality Blood specimen 07/10/2017 3:08 PM 017 3:08 (specimen) EST PM EST Yuan Webber MD POINT OF CARE TEST ORDERABLE S Performing Organization Address City/State/ZIP Code Phon e Number [address] POCT Glucose (07/10/2017 2:25 PM EST) athologist Signature POC Glucose 146 65 - 199 [place] mg/dL [facility] Comment: Supplemental ranges: <140 mg/dL before meals <180 mg/dL all other times of the day Specimen Anatomical Collection Method Collection Time Receive d Time (Source) Location / / Volume Laterality Blood specimen 07/10/2017 2:25 PM 017 2:25 (specimen) EST PM EST Yuan Webber MD POINT OF CARE TEST ORDERABLE S Performing Organization Address City/State/ZIP Code Phon e Number [address] POCT Glucose (07/10/2017 1:23 PM EST) athologist Signature POC Glucose 166 65 - 199 [place] mg/dL [facility] Comment: Supplemental ranges: <140 mg/dL before meals <180 mg/dL all other times of the day Specimen Anatomical Collection Method Collection Time Receive d Time (Source) Location / / Volume Laterality Blood specimen 07/10/2017 1:23 PM 017 1:23 (specimen) EST PM EST Yuan Webber MD POINT OF CARE TEST ORDERABLE S Performing Organization Address City/State/ZIP Code Phon e Number [address] POCT Glucose (07/10/2017 11:52 AM EST) athologist Signature POC Glucose 157 65 - 199 [place] mg/dL [facility] Comment: Supplemental ranges: <140 mg/dL before meals <180 mg/dL all other times of the day Specimen Anatomical Collection Method Collection Time Receive d Time (Source) Location / / Volume Laterality Blood specimen 07/10/2017 11:52 7 (specimen) AM EST 11:52 AM EST Yuan Webber MD POINT OF CARE TEST ORDERABLE S Performing Organization Address City/State/ZIP Code Phon e Number [address] POCT Glucose (07/10/2017 11:01 AM EST) athologist Signature POC Glucose 158 65 - 199 [place] mg/dL [facility] Comment: Supplemental ranges: <140 mg/dL before meals <180 mg/dL all other times of the day Specimen Anatomical Collection Method Collection Time Receive d Time (Source) Location / / Volume Laterality Blood specimen 07/10/2017 11:01 7 (specimen) AM EST 11:01 AM EST Yuan Webber MD POINT OF CARE TEST ORDERABLE S Performing Organization Address City/State/ZIP Code Phon e Number [address] POCT Glucose (07/10/2017 9:54 AM EST) P athologist Signature POC Glucose 160 65 - 199 [place] mg/dL [facility] Comment: Supplemental ranges: <140 mg/dL before meals <180 mg/dL all other times of the day Specimen Anatomical Collection Method Collection Time Receive d Time (Source) Location / / Volume Laterality Blood specimen 07/10/2017 9:54 AM 017 9:54 (specimen) EST AM EST Yuan Webber MD POINT OF CARE TEST ORDERABLE S Performing Organization Address City/State/ZIP Code Phon e Number [address] POCT Glucose (07/10/2017 8:58 AM EST) P athologist Signature POC Glucose 183 65 - 199 [place] mg/dL [facility] Comment: Supplemental ranges: <140 mg/dL before meals <180 mg/dL all other times of the day Specimen Anatomical Collection Method Collection Time Receive d Time (Source) Location / / Volume Laterality Blood specimen 07/10/2017 8:58 AM 017 8:58 (specimen) EST AM EST Yuan Webber MD POINT OF CARE TEST ORDERABLE S Performing Organization Address City/State/ZIP Code Phon e Number [address] POCT Glucose (07/10/2017 8:01 AM EST) P athologist Signature POC Glucose 173 65 - 199 [place] mg/dL [facility] Comment: Supplemental ranges: <140 mg/dL before meals <180 mg/dL all other times of the day Specimen Anatomical Collection Method Collection Time Receive d Time (Source) Location / / Volume Laterality Blood specimen 07/10/2017 8:01 AM 017 8:01 (specimen) EST AM EST Yuan Webber MD POINT OF CARE TEST ORDERABLE S Performing Organization Address City/[facility]/ZIP Code Phon e Number [address] POCT Glucose (07/10/2017 7:05 AM EST) P athologist Signature POC Glucose 166 65 - 199 [facility] mg/dL [facility] Comment: Supplemental ranges: <140 mg/dL before meals <180 mg/dL all other times of the day Specimen Anatomical Collection Method Collection Time Receive d Time (Source) Location / / Volume Laterality Blood specimen 07/10/2017 7:05 AM 017 7:05 (specimen) EST AM EST Yuan Webber MD POINT OF CARE TEST ORDERABLE S Performing Organization Address City/[facility]/ZIP Code Phon e Number [address] POCT Glucose (07/10/2017 6:00 AM EST) athologist Signature POC Glucose 162 65 - 199 [facility] mg/dL [facility] Comment: Supplemental ranges: <140 mg/dL before meals <180 mg/dL all other times of the day Specimen Anatomical Collection Method Collection Time Receive d Time (Source) Location / / Volume Laterality Blood specimen 07/10/2017 6:00 AM 017 6:00 (specimen) EST AM EST Yuan Webber MD POINT OF CARE TEST ORDERABLE S Performing Organization Address City/State/ZIP Code Phon e Number [address] (ABNORMAL) Differential, Automated (07/10/2017 4:28 AM EST) [facility] gist Method Time Signature Neutrophils % 87.9 % [facility] Neutr Abs (ANC) 10.70 (H) 1.70 - [facility] 6.10 [facility] x10(3)/[facility] L LABORATORY Lymphocytes % 3.9 % [facility] Lymphocytes Abs 0.5 (L) 0.9 - 3.2 [facility] x10(3)/[facility] LABORATORY Monocytes % 7.0 % [facility] Monocyte Abs 0.8 0.3 - 0.9 [facility] x10(3)/[facility] LABORATORY Eosinophils % 0.3 % [facility] Eosinophils Abs 0.0 0.0 - 0.4 [facility] x10(3)/[facility] LABORATORY Basophils % 0.2 % [facility] Basophils Abs 0.0 0.0 - 0.1 [facility] x10(3)/[facility] LABORATORY Immature Gran % 0.70 % [facility] Comment: Immature granulocytes(IG's)percentage an d absolute count will include metamyelocytes, myelocytes, and promyelo cytes. Blood smears from CBCs yielding IG's will be scanned manually for concor dance. If this scan disagrees with the automated IG or if promyelocytes are not ed, a manual differential will be performed. Melisa Gran Abs 0.08 (H) 0.00 - 0.04 x10(3)/[facility] LABORATORY Specimen Anatomical Collection Method Collection Time Receive d Time (Source) Location / / Volume Laterality Blood specimen 07/10/2017 4:28 AM 017 4:36 (specimen) EST AM EST Resulting Agency Comment Spec In Lab Yuan Webber MD HEMATOLOGY ORDERABLES Performing Organization Address City/State/[place] [address] (ABNORMAL) Hemogram (07/10/2017 4:28 AM EST) Analysis Performed At Patho logist Time Signature WBC 12.2 (H) 4.0 - 9.5 [facility] x10(3)/[facility] LABORATORY RBC 3.31 (L) 4.58 - [facility] 5.54 [facility] x10(6)/[facility] LABORATORY Hemoglobin 9.8 (L) 13.7 - [place] 16.5 gm/dL [facility] Hematocrit 30.0 (L) 40.5 - [place] 48.5 % [facility] MCV 90.6 82.9 - [facility] 93.1 [facility] LABORATORY MCH 29.6 27.5 - [place] 32.1 pg [facility] MCHC 32.7 32.0 - [place] 35.7 gm/dL [facility] Platelets 135 (L) 145 - 357 [facility] x10(3)/[facility] LABORATORY RDWSD 50.8 (H) 36.0 - [facility] 45.0 [facility] LABORATORY RDWCV 15.4 (H) 11.4 - [facility] 13.8 % [facility] MPV 10.0 7.6 - 12.9 [facility] LABORATORY nRBC % Auto 0.0 % [facility] nRBC Abs Auto 0.000 0.000 - [facility] 0.000 [facility] x10(3)/[facility] LABORATORY Specimen Anatomical Collection Method Collection Time Receive d Time (Source) Location / / Volume Laterality Blood specimen 07/10/2017 4:28 AM 017 4:36 (specimen) EST AM EST Resulting Agency Comment Spec In Lab Yuan Webber MD HEMATOLOGY ORDERABLES Performing Organization Address City/State/Z[place] [address] (ABNORMAL) Basic Metabolic Panel (non-fasting) (07/10/2017 4:28 AM EST) P athologist Signature Glucose Lvl 178 65 - 199 [facility] mg/dL [facility] Comment: Diabetes: >=200 mg/dL plus symp toms BUN 20 10 - 20 mg/dL [facility] LAB[facility] Creatinine 1.19 0.80 - 1.50 mg/dL [facility] LABORATORY Sodium 143 135 - [...] estions. Chloride 107 98 - 107 mmol/L [facility] CO2 21 (L) 22 - 31 mmol/L [facility] Anion Gap 15 5 - 15 mmol/L [facility] Calcium 7.4 (L) 8.5 - 10.5 mg/dL [facility] LABORATORY Estimated GFR 60 >=60 [facility] Comment: The reported eGFR should be multiplied b y 1.2 for patients. The MDRD is not an appropriate measure o f renal function for patients with body mass extremes or in patients with acute kidney failure. http://[employer]/DHnkdep http://[employer]/DHMCnkf Specimen Anatomical Collection Method Collection Time Receive d Time (Source) Location / / Volume Laterality Blood specimen 07/10/2017 4:28 AM 017 4:36 (specimen) EST AM EST Resulting Agency Comment Spec In Lab Yuan Webber MD CHEMISTRY ORDERABLES Performing Organization Address City/[facility]/ZIP Code Phon e Number [address] POCT Glucose (07/10/2017 4:26 AM EST) athologist Signature POC Glucose 176 65 - 199 [facility] mg/dL [facility] Comment: Supplemental ranges: <140 mg/dL before meals <180 mg/dL all other times of the day Specimen Anatomical Collection Method Collection Time Receive d Time (Source) Location / / Volume Laterality Blood specimen 07/10/2017 4:26 AM 017 4:26 (specimen) EST AM EST Yuan Webber MD POINT OF CARE TEST ORDERABLE S Performing Organization Address City/[facility]/[place] [address] (ABNORMAL) POCT Glucose (07/10/2017 3:06 AM EST) athologist Signature POC Glucose 204 (H) 65 - 199 [facility] mg/dL [facility] Comment: Supplemental ranges: <140 mg/dL before meals <180 mg/dL all other times of the day Specimen Anatomical Collection Method Collection Time Receive d Time (Source) Location / / Volume Laterality Blood specimen 07/10/2017 3:06 AM 017 3:06 (specimen) EST AM EST Yuan Webber MD POINT OF CARE TEST ORDERABLE S Performing Organization Address City/State/[place] [address] (ABNORMAL) POCT Glucose (07/10/2017 2:10 AM EST) athologist Signature POC Glucose 203 (H) 65 - 199 [facility] Comment: Supplemental ranges: <140 mg/dL before meals <180 mg/dL all other times of the day Specimen Anatomical Collection Method Collection Time Receive d Time (Source) Location / / Volume Laterality Blood specimen 07/10/2017 2:10 AM 017 2:10 (specimen) EST AM EST Yuan Webber MD POINT OF CARE TEST ORDERABLE S Performing Organization Address City/State/[place] [address] POCT Glucose (07/10/2017 1:09 AM EST) athologist Signature POC Glucose 196 65 - 199 [facility] Comment: Supplemental ranges: <140 mg/dL before meals <180 mg/dL all other times of the day Specimen Anatomical Collection Method Collection Time Receive d Time (Source) Location / / Volume Laterality Blood specimen 07/10/2017 1:09 AM 017 1:09 (specimen) EST AM EST Yuan Webber MD POINT OF CARE TEST ORDERABLE S Performing Organization Address City/State/[place] [address] POCT Glucose (07/10/2017 12:10 AM EST) athologist Signature POC Glucose 173 65 - 199 [place] mg/dL [facility] Comment: Supplemental ranges: <140 mg/dL before meals <180 mg/dL all other times of the day Specimen Anatomical Collection Method Collection Time Receive d Time (Source) Location / / Volume Laterality Blood specimen 07/10/2017 12:10 7 (specimen) AM EST 12:10 AM EST Yuan Webber MD POINT OF CARE TEST ORDERABLE S Performing Organization Address City/State/ZIP Code Phon e Number [address] POCT Glucose (07/09/2017 11:01 PM EST) athologist Signature POC Glucose 140 65 - 199 [place] mg/dL [facility] Comment: Supplemental ranges: <140 mg/dL before meals <180 mg/dL all other times of the day Specimen Anatomical Collection Method Collection Time Receive d Time (Source) Location / / Volume Laterality Blood specimen 07/09/2017 11:01 7 (specimen) PM EST 11:01 PM EST Yuan Webber MD POINT OF CARE TEST ORDERABLE S Performing Organization Address City/State/ZIP Code Phon e Number [address] POCT Glucose (07/09/2017 10:05 PM EST) athologist Signature POC Glucose 144 65 - 199 [place] mg/dL [facility] Comment: Supplemental ranges: <140 mg/dL before meals <180 mg/dL all other times of the day Specimen Anatomical Collection Method Collection Time Receive d Time (Source) Location / / Volume Laterality Blood specimen 07/09/2017 10:05 7 (specimen) PM EST 10:05 PM EST Yuan Webber MD POINT OF CARE TEST ORDERABLE S Performing Organization Address City/State/ZIP Code Phon e Number [address] POCT Glucose (07/09/2017 9:31 PM EST) athologist Signature POC Glucose 121 65 - 199 [place] mg/dL [facility] Comment: Supplemental ranges: <140 mg/dL before meals <180 mg/dL all other times of the day Specimen Anatomical Collection Method Collection Time Receive d Time (Source) Location / / Volume Laterality Blood specimen 07/09/2017 9:31 PM 017 9:31 (specimen) EST PM EST Yuan Webber MD POINT OF CARE TEST ORDERABLE S Performing Organization Address City/State/ZIP Code Phon e Number [address] POCT Glucose (07/09/2017 9:03 PM EST) athologist Signature POC Glucose 98 65 - 199 [place] mg/dL [facility] Comment: Supplemental ranges: <140 mg/dL before meals <180 mg/dL all other times of the day Specimen Anatomical Collection Method Collection Time Receive d Time (Source) Location / / Volume Laterality Blood specimen 07/09/2017 9:03 PM 017 9:03 (specimen) EST PM EST Yuan Webber MD POINT OF CARE TEST ORDERABLE S Performing Organization Address City/State/ZIP Code Phon e Number [address] POCT Glucose (07/09/2017 8:09 PM EST) athologist Signature POC Glucose 117 65 - 199 [facility] mg/dL [facility] Comment: Supplemental ranges: <140 mg/dL before meals <180 mg/dL all other times of the day Specimen Anatomical Collection Method Collection Time Receive d Time (Source) Location / / Volume Laterality Blood specimen 07/09/2017 8:09 PM 017 8:09 (specimen) EST PM EST Yuan Webber MD POINT OF CARE TEST ORDERABLE S Performing Organization Address City/State/ZIP Code Phon e Number [address] POCT Glucose (07/09/2017 5:40 PM EST) athologist Signature POC Glucose 155 65 - 199 [place] mg/dL [facility] Comment: Supplemental ranges: <140 mg/dL before meals <180 mg/dL all other times of the day Specimen Anatomical Collection Method Collection Time Receive d Time (Source) Location / / Volume Laterality Blood specimen 07/09/2017 5:40 PM 017 5:40 (specimen) EST PM EST Yuan Webber MD POINT OF CARE TEST ORDERABLE S Performing Organization Address City/State/ZIP Code Phon e Number [address] POCT Glucose (07/09/2017 4:24 PM EST) athologist Signature POC Glucose 164 65 - 199 [facility] mg/dL [facility] Comment: Supplemental ranges: <140 mg/dL before meals <180 mg/dL all other times of the day Specimen Anatomical Collection Method Collection Time Receive d Time (Source) Location / / Volume Laterality Blood specimen 07/09/2017 4:24 PM 017 4:24 (specimen) EST PM EST Yuan Webber MD POINT OF CARE TEST ORDERABLE S Performing Organization Address City/State/ZIP Code Phon e Number [address] POCT Glucose (07/09/2017 3:19 PM EST) athologist Signature POC Glucose 166 65 - 199 [place] mg/dL [facility] Comment: Supplemental ranges: <140 mg/dL before meals <180 mg/dL all other times of the day Specimen Anatomical Collection Method Collection Time Receive d Time (Source) Location / / Volume Laterality Blood specimen 07/09/2017 3:19 PM 017 3:19 (specimen) EST PM EST Yuan Webber MD POINT OF CARE TEST ORDERABLE S Performing Organization Address City/State/ZIP Code Phon e Number [address] POCT Glucose (07/09/2017 2:26 PM EST) athologist Signature POC Glucose 179 65 - 199 [facility] mg/dL [facility] Comment: Supplemental ranges: <140 mg/dL before meals <180 mg/dL all other times of the day Specimen Anatomical Collection Method Collection Time Receive d Time (Source) Location / / Volume Laterality Blood specimen 07/09/2017 2:26 PM 017 2:26 (specimen) EST PM EST Yuan Webber MD POINT OF CARE TEST ORDERABLE S Performing Organization Address City/State/[place] [address] (ABNORMAL) POCT Glucose (07/09/2017 1:29 PM EST) P athologist Signature POC Glucose 210 (H) 65 - 199 [place] mg/dL [facility] Comment: Supplemental ranges: <140 mg/dL before meals <180 mg/dL all other times of the day Specimen Anatomical Collection Method Collection Time Receive d Time (Source) Location / / Volume Laterality Blood specimen 07/09/2017 1:29 PM 017 1:29 (specimen) EST PM EST Yuan Webber MD POINT OF CARE TEST ORDERABLE S Performing Organization Address City/State/[place] [address] POCT Glucose (07/09/2017 12:20 PM EST) P athologist Signature POC Glucose 172 65 - 199 [place] mg/dL [facility] Comment: Supplemental ranges: <140 mg/dL before meals <180 mg/dL all other times of the day Specimen Anatomical Collection Method Collection Time Receive d Time (Source) Location / / Volume Laterality Blood specimen 07/09/2017 12:20 7 (specimen) PM EST 12:20 PM EST Yuan Webber MD POINT OF CARE TEST ORDERABLE S Performing Organization Address City/State/[place] [address] POCT Glucose (07/09/2017 11:24 AM EST) P athologist Signature POC Glucose 156 65 - 199 [place] mg/dL [facility] Comment: Supplemental ranges: <140 mg/dL before meals <180 mg/dL all other times of the day Specimen Anatomical Collection Method Collection Time Receive d Time (Source) Location / / Volume Laterality Blood specimen 07/09/2017 11:24 7 (specimen) AM EST 11:24 AM EST Yuan Webber MD POINT OF CARE TEST ORDERABLE S Performing Organization Address City/State/ZIP Code Phon e Number [address] POCT Glucose (07/09/2017 11:11 AM EST) P athologist Signature POC Glucose 172 65 - 199 [place] mg/dL [facility] Comment: Supplemental ranges: <140 mg/dL before meals <180 mg/dL all other times of the day Specimen Anatomical Collection Method Collection Time Receive d Time (Source) Location / / Volume Laterality Blood specimen 07/09/2017 11:11 7 (specimen) AM EST 11:11 AM EST Yuan Webber MD POINT OF CARE TEST ORDERABLE S Performing Organization Address City/State/ZIP Code Phon e Number [address] POCT Glucose (07/09/2017 10:08 AM EST) athologist Signature POC Glucose 176 65 - 199 [place] mg/dL [facility] Comment: Supplemental ranges: <140 mg/dL before meals <180 mg/dL all other times of the day Specimen Anatomical Collection Method Collection Time Receive d Time (Source) Location / / Volume Laterality Blood specimen 07/09/2017 10:08 7 (specimen) AM EST 10:08 AM EST Yuan Webber MD POINT OF CARE TEST ORDERABLE S Performing Organization Address City/State/ZIP Code Phon e Number [address] POCT Glucose (07/09/2017 8:02 AM EST) athologist Signature POC Glucose 178 65 - 199 [facility] mg/dL [facility] Comment: Supplemental ranges: <140 mg/dL before meals <180 mg/dL all other times of the day Specimen Anatomical Collection Method Collection Time Receive d Time (Source) Location / / Volume Laterality Blood specimen 07/09/2017 8:02 AM 017 8:02 (specimen) EST AM EST Yuan Webber MD POINT OF CARE TEST ORDERABLE S Performing Organization Address City/State/ZIP [place] [address] (ABNORMAL) BLOOD GAS 2 ARTERIAL (07/09/2017 5:37 AM EST) Analysis Performed At Patho logist Time Signature pH Art 7.36 7.35 - [facility] 7.45 [facility]ORY pCO2 Art 38 35 - 45 [facility] mmHg [facility]ORATORY pO2 Art 79 (L) 85 - 104 [facility] LABORATORY HCO3 Art 20.9 20.0 - [facility] 26.0 [facility] mmol/L [facility] LABORATORY BE Art -4.6 (L) -3.0 - 3.0 [facility] mmol/L [facility] Hgb Blood Gas 10.5 (L) 13.7 - [facility] 16.5 gm/dL [facility] O2HB Art 93.8 (L) 94.0 - [facility] 97.0 % [facility] COHB Art 0.3 % [facility] Comment: Nonsmokers: 0.5-1.5% COHB Smokers: Variable, but usually less than 10% Toxic: 20-30% COHB Lethal: Greater than 60% COHB METHB Art 0.6 <=1.5 % [facility] Na Whole Blood 141 135 - 145 mmol/L [facility] K Whole Blood 4.5 3.5 - 5.0 mmol/L [facility] Comment: Please note: Patients with WBC >100,000 may have falsely elevated Potassium levels. Contact the Clinical Chemistry L aboratory if there are any questions. ICa Whole Blood 1.01 (L) 1.15 - 1.33 mmol/L [facility] Comment: Note: ??Total bilirubin higher than 20 m g/dL may lead to falsely low ionized calcium. CL Whole Blood 113 (H) 98 - 107 mmol/L [facility] Gluc Whole Bld 175 65 - 199 mg/dL [facility] Comment: Diabetes: >=200 mg/dL plus symp toms. Lactate WB 1.0 0.5 - 2.2 mmol/L [facility] FIO2 Art 40 % [facility] PF Ratio Art 198 [facility] Specimen Anatomical Collection Method Collection Time Receive d Time (Source) Location / / Volume Laterality Blood specimen 07/09/2017 5:37 AM 017 5:37 (specimen) EST AM EST Yuan Webber MD CHEMISTRY ORDERABLES Performing Organization Address [facility] Phon e Number [address] POCT Glucose (07/09/2017 3:27 AM EST) athologist Signature POC Glucose 192 65 - 199 [facility] mg/dL [facility] Comment: Supplemental ranges: <140 mg/dL before meals <180 mg/dL all other times of the day Specimen Anatomical Collection Method Collection Time Receive d Time (Source) Location / / Volume Laterality Blood specimen 07/09/2017 3:27 AM 017 3:27 (specimen) EST AM EST Yuan Webber MD POINT OF CARE TEST ORDERABLE S Performing Organization Address City/[facility]/ZIP Code Phon e Number [address] (ABNORMAL) Basic Metabolic Panel (non-fasting) (07/09/2017 2:30 AM EST) athologist Signature Glucose Lvl 179 65 - 199 [facility] mg/dL [facility] Comment: Diabetes: >=200 mg/dL plus symp toms BUN 17 10 - 20 mg/dL [facility] Creatinine 1.34 0.80 - 1.50 mg/dL [facility] Sodium 144 135 - 145 mmol/L [facility] Potassium Not Perf 3.5 - 5.0 mmol/L [facility] Comment: Duplicate order Please note: ??Patients with WBC >100,00 0 may have falsely elevated Potassium levels. ??For accurate Potassium quantif ication in these patients send serum separator tube (gold top) for subsequent determinations. ??Contact the Clinical Chemistry Laboratory if there are any qu estions. Chloride 111 (H) 98 - 107 mmol/L [facility] CO2 21 (L) 22 - 31 mmol/L [facility] Anion Gap 12 5 - 15 mmol/L [facility] Calcium 7.1 (L) 8.5 - 10.5 mg/dL [facility] Comment: result [id number] Estimated GFR 53 (L) >=60 [facility] Comment: The reported eGFR should be multiplied b y 1.2 for patients. The MDRD is not an appropriate measure o f renal function for patients with body mass extremes or in patients with acute kidney failure. http://[employer]/DHnkdep http://[employer]/DHMCnkf Specimen Anatomical Collection Method Collection Time Receive d Time (Source) Location / / Volume Laterality Blood specimen Venous Draw / 07/09/2017 2:30 AM 2016 2:42 (specimen) Unknown EST AM EST Resulting Agency Comment Spec In Lab Yuan Webber MD CHEMISTRY ORDERABLES Performing Organization Address City/State/[place]IP [place] [address] (ABNORMAL) Potassium (07/09/2017 2:30 AM EST) P athologist Signature Potassium 5.1 (H) 3.5 - 5.0 [facility] mmol/L [facility] Comment: Please note: ??Patients [...] Organization Address City/State/ZIP Code Phon e Number [place] [phone] (ABNORMAL) Hemogram (07/09/2017 2:30 AM EST) Analysis Performed At Patho logist Time Signature WBC 12.5 (H) 4.0 - 9.5 [facility] x10(3)/[facility] LABORATORY RBC 3.38 (L) 4.58 - [place] SU 5.54 [facility] x10(6)/[facility] LABORATORY Hemoglobin 10.1 (L) 13.7 - [facility] 16.5 gm/dL [facility] Hematocrit 30.3 (L) 40.5 - [facility] 48.5 % [facility] MCV 89.6 82.9 - [facility] 93.1 [facility] LABORATORY MCH 29.9 27.5 - [facility] 32.1 pg [facility] MCHC 33.3 32.0 - [facility] 35.7 gm/dL [facility] Platelets 127 (L) 145 - 357 [facility] x10(3)/[facility] LABORATORY RDWSD 49.3 (H) 36.0 - [facility] 45.0 [facility] LABORATORY RDWCV 15.2 (H) 11.4 - [facility] 13.8 % [facility] MPV 9.9 7.6 - 12.9 [facility] nRBC % Auto 0.0 % [facility] nRBC Abs Auto 0.000 0.000 - [facility] SU 0.000 [facility] x10(3)/[facility] LABORATORY Specimen Anatomical Collection Method Collection Time Receive d Time (Source) Location / / Volume Laterality Blood specimen 07/09/2017 2:30 AM 017 2:41 (specimen) EST AM EST Resulting Agency Comment Spec In Lab Yuan Webber MD HEMATOLOGY ORDERABLES Performing Organization Address City/State/ZIP [place] [address] [facility] [address] POCT Glucose (07/09/2017 2:10 AM EST) P athologist Signature POC Glucose 169 65 - 199 [place] mg/dL [facility] Comment: Supplemental ranges: <140 mg/dL before meals <180 mg/dL all other times of the day Specimen Anatomical Collection Method Collection Time Receive d Time (Source) Location / / Volume Laterality Blood specimen 07/09/2017 2:10 AM 017 2:10 (specimen) EST AM EST Yuan Webber MD POINT OF CARE TEST ORDERABLE S Performing Organization Address City/[facility]/ZIP Code Phon e Number [address] POCT Glucose (07/09/2017 1:01 AM EST) P athologist Signature POC Glucose 173 65 - 199 [place] mg/dL [facility] Comment: Supplemental ranges: <140 mg/dL before meals <180 mg/dL all other times of the day Specimen Anatomical Collection Method Collection Time Receive d Time (Source) Location / / Volume Laterality Blood specimen 07/09/2017 1:01 AM 017 1:01 (specimen) EST AM EST Yuan Webber MD POINT OF CARE TEST ORDERABLE S Performing Organization Address City/[facility]/[place] [address] Blood culture (07/09/2017 12:40 AM EST) Patholo gist Method Time Signature Blood Culture No growth [place] ZHAOSU at 5 days. [facility] Specimen Anatomical Collection Method Collection Time Receive d Time (Source) Location / / Volume Laterality Blood specimen STRUCTURE OF RIGHT 07/09/2017 12:40 3:58 (specimen) UPPER LIMB / AM EST AM EST Unknown Resulting Agency Comment Spec In Lab Yuan Webber MD MICROBIOLOGY - BLOOD ORDERAB LES Performing Organization Address City/State/[place] [address] Blood culture (07/09/2017 12:30 AM EST) Patholo gist Method Time Signature Blood Culture No growth [place] ZHAOSU at 5 days. [facility] Specimen Anatomical Collection Method Collection Time Receive d Time (Source) Location / / Volume Laterality Blood specimen STRUCTURE OF LEFT 07/09/2017 12:30 1211/2016 3:59 (specimen) UPPER LIMB / AM EST AM EST Unknown Resulting Agency Comment Spec In Lab Yuan Webber MD MICROBIOLOGY - BLOOD ORDERAB LES Performing Organization Address City/State/[place] [address] (ABNORMAL) Urinalysis Microscopic Exam (07/09/2017 12:05 AM EST) Analysis Performed At Patho logist Time Signature RBC UA 32 (H) 0 - 3 /HPF [facility] WBC UA 5 (H) 0 - 3 /HPF [facility] Squam Epith UA <1 <=4 /HPF [facility] Hyaline Cast 17 (H) 0 - 2 /LPF [facility] Gran Cast UA 1 (H) <=0 /LPF [facility] Uric Ac Bianca Rare (A) None /HPF [facility] Specimen (Source) Anatomical Collection Method Collection Time Re ceived Time Location / / Volume Laterality Urine specimen 07/09/2017 12:05 07/09/ 7 obtained via AM EST 12:39 AM EST indwelling urinary catheter (specimen) Resulting Agency Comment Spec In Lab Yuan Webber MD URINE ORDERABLES Performing Organization Address City/[facility]/[place] [address] (ABNORMAL) Urinalysis with reflex Culture (07/09/2017 12:05 AM EST) Patholo gist Method Time Signature Glucose UA Negative Negative [facility] Protein UA 30 (A) Negative [facility] mg/dL [facility] Bilirubin UA Negative Negative [facility] mg/dL [facility] Comment: Clinical correlation required for positi ve Urine Bilirubin results as false positive may occur with some drugs and d rug related products. If a false positive is suspected a serum total bili yeager should be considered if clinically indicated. Urobilinogen UA Normal Normal mg/dL [facility] pH UA 5.0 5.0 - 8.0 [facility] Blood UA Moderate (A) Negative mg/dL [facility] Ketones UA Negative Negative mg/dL [facility] Nitrite UA Negative Negative [facility] Leukocytes UA Negative Negative [facility] LABORATORY Appearance UA Hazy (A) Clear [facility] Spec [place] UA 1.025 1.002 - 1.030 [facility] Color UA Yellow Yellow [facility] Culture Reflexed No [facility] Specimen (Source) Anatomical Collection Method Collection Time Re ceived Time Location / / Volume Laterality Urine specimen 07/09/2017 12:05 7 obtained via AM EST 12:39 AM EST indwelling urinary catheter (specimen) Resulting Agency Comment Spec In Lab Yuan Webber MD URINE ORDERABLES Performing Organization Address City/[facility]/ZIP Code Phon e Number [address] POCT Glucose (07/08/2017 11:01 PM EST) athologist Signature POC Glucose 191 65 - 199 [facility] mg/dL [facility] Comment: Supplemental ranges: <140 mg/dL before meals <180 mg/dL all other times of the day Specimen Anatomical Collection Method Collection Time Receive d Time (Source) Location / / Volume Laterality Blood specimen 07/08/2017 11:01 7 (specimen) PM EST 11:01 PM EST Yuan Webber MD POINT OF CARE TEST ORDERABLE S Performing Organization Address City/State/ZIP Code Phon e Number [address] POCT Glucose (07/08/2017 10:04 PM EST) athologist Signature POC Glucose 198 65 - 199 [facility] mg/dL [facility] Comment: Supplemental ranges: <140 mg/dL before meals <180 mg/dL all other times of the day Specimen Anatomical Collection Method Collection Time Receive d Time (Source) Location / / Volume Laterality Blood specimen 07/08/2017 10:04 7 (specimen) PM EST 10:04 PM EST Yuan Webber MD POINT OF CARE TEST ORDERABLE S Performing Organization Address City/State/[place] [address] Prepare Albumin 5% in 250 mL (07/08/2017 8:49 PM EST) P athologist Signature Dispensed? Yes [facility] Specimen Anatomical Collection Method Collection Time Receive d Time (Source) Location / / Volume Laterality Blood specimen No Charge / 07/08/2017 8:49 PM 017 8:51 (specimen) Unknown EST PM EST Resulting Agency Comment Spec In Lab [facility] ORDERABLES Performing Organization Address City/State/[place] [address] POCT Glucose (07/08/2017 8:28 PM EST) P athologist Signature POC Glucose 195 65 - 199 [facility] mg/dL [facility] Comment: Supplemental ranges: <140 mg/dL before meals <180 mg/dL all other times of the day Specimen Anatomical Collection Method Collection Time Receive d Time (Source) Location / / Volume Laterality Blood specimen 07/08/2017 8:28 PM 017 8:28 (specimen) EST PM EST Yuan Webber MD POINT OF CARE TEST ORDERABLE S Performing Organization Address City/State/[place] [address] (ABNORMAL) POCT Glucose (07/08/2017 7:13 PM EST) P athologist Signature POC Glucose 220 (H) 65 - 199 [facility] mg/dL [facility] Comment: Supplemental ranges: <140 mg/dL before meals <180 mg/dL all other times of the day Specimen Anatomical Collection Method Collection Time Receive d Time (Source) Location / / Volume Laterality Blood specimen 07/08/2017 7:13 PM 017 7:13 (specimen) EST PM EST Yuan Webber MD POINT OF CARE TEST ORDERABLE S Performing Organization Address City/State/ZIP Code Phon e Number [address] POCT Glucose (07/08/2017 5:04 PM EST) P athologist Signature POC Glucose 147 65 - 199 [facility] mg/dL [facility] Comment: Supplemental ranges: <140 mg/dL before meals <180 mg/dL all other times of the day Specimen Anatomical Collection Method Collection Time Receive d Time (Source) Location / / Volume Laterality Blood specimen 07/08/2017 5:04 PM 017 5:04 (specimen) EST PM EST Yuan Webber MD POINT OF CARE TEST ORDERABLE S Performing Organization Address City/State/[place] [address] (ABNORMAL) BLOOD GAS 2 ARTERIAL (07/08/2017 4:13 PM EST) Analysis Performed At Patho logist Time Signature pH Art 7.38 7.35 - [facility] 7.45 [facility] pCO2 Art 36 35 - 45 [facility] LABORATORY pO2 Art 91 85 - 104 [facility]ATORY HCO3 Art 20.9 20.0 - [facility] 26.0 [facility] mmol/L [facility] BE Art -4.2 (L) -3.0 - 3.0 [facility] mmol/L [facility] Hgb Blood Gas 11.7 (L) 13.7 - [facility] 16.5 gm/dL [facility] O2HB Art 95.1 94.0 - [facility] 97.0 % [facility] COHB Art 0.6 % [facility] Comment: Nonsmokers: 0.5-1.5% COHB Smokers: Variable, but usually less than 10% Toxic: 20-30% COHB Lethal: Greater than 60% COHB METHB Art 0.6 <=1.5 % [facility] Na Whole Blood 139 135 - 145 mmol/L [facility] K Whole Blood 4.2 3.5 - 5.0 mmol/L [facility] Comment: Please note: Patients with WBC >100,000 may have falsely elevated Potassium levels. Contact the Clinical Chemistry L aboratory if there are any questions. ICa Whole Blood 1.05 (L) 1.15 - 1.33 mmol/L [facility] Comment: Note: ??Total bilirubin higher than 20 m g/dL may lead to falsely low ionized calcium. CL Whole Blood 110 (H) 98 - 107 mmol/L [facility] Gluc Whole Bld 155 65 - 199 mg/dL [facility] Comment: Diabetes: >=200 mg/dL plus symp toms. Lactate WB 1.4 0.5 - 2.2 mmol/L [facility] FIO2 Art 40 % [facility] PF Ratio Art 228 [facility] Specimen Anatomical Collection Method Collection Time Receive d Time (Source) Location / / Volume Laterality Blood specimen 07/08/2017 4:13 PM 017 4:13 (specimen) EST PM EST Yuan Webber MD CHEMISTRY ORDERABLES Performing Organization Address City/[facility] Code Phon e Number [address] POCT Glucose (07/08/2017 4:01 PM EST) athologist Signature POC Glucose 148 65 - 199 [facility] mg/dL [facility] Comment: Supplemental ranges: <140 mg/dL before meals <180 mg/dL all other times of the day Specimen Anatomical Collection Method Collection Time Receive d Time (Source) Location / / Volume Laterality Blood specimen 07/08/2017 4:01 PM 017 4:01 (specimen) EST PM EST Yuan Webber MD POINT OF CARE TEST ORDERABLE S Performing Organization Address City/[facility] Code Phon e Number [address] POCT Glucose (07/08/2017 3:21 PM EST) athologist Signature POC Glucose 118 65 - 199 [facility] mg/dL [facility] Comment: Supplemental ranges: <140 mg/dL before meals <180 mg/dL all other times of the day Specimen Anatomical Collection Method Collection Time Receive d Time (Source) Location / / Volume Laterality Blood specimen 07/08/2017 3:21 PM 017 3:21 (specimen) EST PM EST Yuan Webber MD POINT OF CARE TEST ORDERABLE S Performing Organization Address City/State/ZIP Code Phon e Number [address] POCT Glucose (07/08/2017 2:01 PM EST) athologist Signature POC Glucose 129 65 - 199 [place] mg/dL [facility] Comment: Supplemental ranges: <140 mg/dL before meals <180 mg/dL all other times of the day Specimen Anatomical Collection Method Collection Time Receive d Time (Source) Location / / Volume Laterality Blood specimen 07/08/2017 2:01 PM 017 2:01 (specimen) EST PM EST Yuan Webber MD POINT OF CARE TEST ORDERABLE S Performing Organization Address City/State/ZIP Code Phon e Number [address] POCT Glucose (07/08/2017 11:53 AM EST) athologist Signature POC Glucose 156 65 - 199 [place] mg/dL [facility] Comment: Supplemental ranges: <140 mg/dL before meals <180 mg/dL all other times of the day Specimen Anatomical Collection Method Collection Time Receive d Time (Source) Location / / Volume Laterality Blood specimen 07/08/2017 11:53 7 (specimen) AM EST 11:53 AM EST Yuan Webber MD POINT OF CARE TEST ORDERABLE S Performing Organization Address City/State/ZIP Code Phon e Number [address] POCT Glucose (07/08/2017 11:04 AM EST) athologist Signature POC Glucose 181 65 - 199 [place] mg/dL [facility] Comment: Supplemental ranges: <140 mg/dL before meals <180 mg/dL all other times of the day Specimen Anatomical Collection Method Collection Time Receive d Time (Source) Location / / Volume Laterality Blood specimen 07/08/2017 11:04 7 (specimen) AM EST 11:04 AM EST Yuan Webber MD POINT OF CARE TEST ORDERABLE S Performing Organization Address City/[facility]/[place] [address] (ABNORMAL) POCT Glucose (07/08/2017 9:24 AM EST) P athologist Signature POC Glucose 203 (H) 65 - 199 [facility] mg/dL [facility] Comment: Supplemental ranges: <140 mg/dL before meals <180 mg/dL all other times of the day Specimen Anatomical Collection Method Collection Time Receive d Time (Source) Location / / Volume Laterality Blood specimen 07/08/2017 9:24 AM 017 9:24 (specimen) EST AM EST Yuan Webber MD POINT OF CARE TEST ORDERABLE S Performing Organization Address City/[facility] [place] [address] APTT (07/08/2017 8:40 AM EST) athologist Signature PTT 33 25 - 35 sec [facility] Comment: The recommended therapeutic range for fu ll dose, unfractionated heparin at [facility] is 80 ? 114 seconds. The use [...] Webber MD HEMATOLOGY ORDERABLES Performing Organization Address City/[facility]/[place] [address] (ABNORMAL) Prothrombin Time (07/08/2017 8:40 AM EST) P athologist Signature PT 15.6 (H) 11.8 - 14.0 [facility] LABORATORY INR 1.3 (H) 0.9 - 1.1 [facility] [...] Webber MD HEMATOLOGY ORDERABLES Performing Organization Address City/[facility]/[place] [address] (ABNORMAL) POCT Glucose (07/08/2017 7:38 AM EST) athologist Signature POC Glucose 232 (H) 65 - 199 [facility] mg/dL [facility] Comment: Supplemental ranges: <140 mg/dL before meals <180 mg/dL all other times of the day Specimen Anatomical Collection Method Collection Time Receive d Time (Source) Location / / Volume Laterality Blood specimen 07/08/2017 7:38 AM 017 7:38 (specimen) EST AM EST Yuan Webber MD POINT OF CARE TEST ORDERABLE S Performing Organization Address City/[facility]/[place] [address] (ABNORMAL) POCT Glucose (07/08/2017 7:07 AM EST) athologist Signature POC Glucose 234 (H) 65 - 199 [facility] mg/dL [facility] Comment: Supplemental ranges: <140 mg/dL before meals <180 mg/dL all other times of the day Specimen Anatomical Collection Method Collection Time Receive d Time (Source) Location / / Volume Laterality Blood specimen 07/08/2017 7:07 AM 017 7:07 (specimen) EST AM EST Yuan Webber MD POINT OF CARE TEST ORDERABLE S Performing Organization Address City/State/[place] [address] (ABNORMAL) POCT Glucose (07/08/2017 6:04 AM EST) P athologist Signature POC Glucose 225 (H) 65 - 199 [place] mg/dL [facility] Comment: Supplemental ranges: <140 mg/dL before meals <180 mg/dL all other times of the day Specimen Anatomical Collection Method Collection Time Receive d Time (Source) Location / / Volume Laterality Blood specimen 07/08/2017 6:04 AM 017 6:04 (specimen) EST AM EST Yuan Webber MD POINT OF CARE TEST ORDERABLE S Performing Organization Address City/[facility]/[place] [address] (ABNORMAL) POCT Glucose (07/08/2017 5:31 AM EST) P athologist Signature POC Glucose 216 (H) 65 - 199 [facility] mg/dL [facility] Comment: Supplemental ranges: <140 mg/dL before meals <180 mg/dL all other times of the day Specimen Anatomical Collection Method Collection Time Receive d Time (Source) Location / / Volume Laterality Blood specimen 07/08/2017 5:31 AM 017 5:31 (specimen) EST AM EST Yuan Webber MD POINT OF CARE TEST ORDERABLE S Performing Organization Address City/State/[place] [address] (ABNORMAL) POCT Glucose (07/08/2017 4:52 AM EST) P athologist Signature POC Glucose 257 (H) 65 - 199 [facility] SU mg/dL [facility] Comment: Supplemental ranges: <140 mg/dL before meals <180 mg/dL all other times of the day Specimen Anatomical Collection Method Collection Time Receive d Time (Source) Location / / Volume Laterality Blood specimen 07/08/2017 4:52 AM 017 4:52 (specimen) EST AM EST Daphne Shahid MD POINT OF CARE TEST ORDERABLE S Performing Organization Address City/State/[place] [address] (ABNORMAL) BLOOD GAS 2 ARTERIAL (07/08/2017 4:04 AM EST) Analysis Performed At Patho logist Time Signature pH Art 7.30 (L) 7.35 - [facility] 7.45 [facility] pCO2 Art 41 35 - 45 [facility] LABORATORY pO2 Art 83 (L) 85 - 104 [facility] LABORATORY HCO3 Art 19.6 (L) 20.0 - [facility] 26.0 [facility] mmol/[facility] BE Art -6.8 (L) -3.0 - 3.0 [facility] mmol/L [facility] Hgb Blood Gas 12.2 (L) 13.7 - [facility] 16.5 gm/dL [facility] O2HB Art 93.5 (L) 94.0 - [facility] 97.0 % [facility] COHB Art 0.4 % [facility] Comment: Nonsmokers: 0.5-1.5% COHB Smokers: Variable, but usually less than 10% Toxic: 20-30% COHB Lethal: Greater than 60% COHB METHB Art 0.8 <=1.5 % [facility] Na Whole Blood 138 135 - 145 mmol/L [facility] K Whole Blood 4.4 3.5 - 5.0 mmol/L [facility] Comment: Please note: Patients with WBC >100,000 may have falsely elevated Potassium levels. Contact the Clinical Chemistry L aboratory if there are any questions. ICa Whole Blood 1.05 (L) 1.15 - 1.33 mmol/L [facility] Comment: Note: ??Total bilirubin higher than 20 m g/dL may lead to falsely low ionized calcium. CL Whole Blood 107 98 - 107 mmol/L [facility] Gluc Whole Bld 274 (H) 65 - 199 mg/dL [facility] Comment: Diabetes: >=200 mg/dL plus symp toms. Lactate WB 4.4 (Critical) 0.5 - 2.2 mmol/L [facility] Comment: Noted by director of instrumental music. FIO2 Art 40 % [facility] PF Ratio Art 208 [facility] Specimen Anatomical Collection Method Collection Time Receive d Time (Source) Location / / Volume Laterality Blood specimen 07/08/2017 4:04 AM 017 4:04 (specimen) EST AM EST Daphne Shahid MD CHEMISTRY ORDERABLES Performing Organization Address City/[facility]/ZIP Code Phon e Number [address] Scan, Peripheral Blood (07/08/2017 4:00 AM EST) P athologist Signature Plat Estimate Normal [facility] RBC Morphology Normal [facility] Specimen Anatomical Collection Method Collection Time Receive d Time (Source) Location / / Volume Laterality Blood specimen 07/08/2017 4:00 AM 017 4:09 (specimen) EST AM EST Resulting Agency Comment Spec In Lab Yuan Webber MD HEMATOLOGY ORDERABLES Performing Organization Address City/[facility]/ZIP Code Phon e Number [address] (ABNORMAL) Differential, Automated (07/08/2017 4:00 AM EST) Patholo gist Method Time Signature Neutrophils % 85.4 % [facility] Neutr Abs (ANC) 16.07 (H) 1.70 - [facility] 6.10 [facility] x10(3)/[facility] L LABORATORY Lymphocytes % 3.5 % [facility] Lymphocytes Abs 0.6 (L) 0.9 - 3.2 [facility] x10(3)/[facility] LABORATORY Monocytes % 10.4 % [facility] Monocyte Abs 2.0 (H) 0.3 - 0.9 [facility] x10(3)/[facility] LABORATORY Eosinophils % 0.0 % [facility] Eosinophils Abs 0.0 0.0 - 0.4 [facility] x10(3)/[facility] LABORATORY Basophils % 0.1 % [facility] Basophils Abs 0.0 0.0 - 0.1 [facility] x10(3)/[facility] LABORATORY Immature Gran % 0.60 % [facility] Comment: Immature granulocytes(IG's)percentage an d absolute count will include metamyelocytes, myelocytes, and promyelo cytes. Blood smears from CBCs yielding IG's will be scanned manually for concor dance. If this scan disagrees with the automated IG or if promyelocytes are not ed, a manual differential will be performed. Melisa Gran Abs 0.12 (H) 0.00 - 0.04 x10(3)/[facility] LABORATORY Specimen Anatomical Collection Method Collection Time Receive d Time (Source) Location / / Volume Laterality Blood specimen 07/08/2017 4:00 AM 017 4:09 (specimen) EST AM EST Resulting Agency Comment Spec In Lab Yuan Webber MD HEMATOLOGY ORDERABLES Performing Organization Address City/State/ZIP [place] [address] (ABNORMAL) Hemogram (07/08/2017 4:00 AM EST) Analysis Performed At Patho logist Time Signature WBC 18.8 (H) 4.0 - 9.5 [facility] x10(3)/[facility] LABORATORY RBC 4.00 (L) 4.58 - [facility] 5.54 [facility] x10(6)/[facility] LABORATORY Hemoglobin 11.9 (L) 13.7 - [facility] 16.5 gm/dL [facility] Hematocrit 35.9 (L) 40.5 - [facility] 48.5 % [facility] MCV 89.8 82.9 - [facility] 93.1 fL [facility] MCH 29.8 27.5 - [facility] 32.1 pg [facility] MCHC 33.1 32.0 - [facility] 35.7 gm/dL [facility] Platelets 232 145 - 357 [facility] x10(3)/[facility] LABORATORY RDWSD 47.6 (H) 36.0 - [facility] 45.0 [facility] LABORATORY RDWCV 14.5 (H) 11.4 - [facility] 13.8 % [facility] MPV 9.5 7.6 - 12.9 [facility] LABORATORY nRBC % Auto 0.0 % [facility] nRBC Abs Auto 0.000 0.000 - [facility] 0.000 [facility] x10(3)/[facility] LABORATORY Specimen Anatomical Collection Method Collection Time Receive d Time (Source) Location / / Volume Laterality Blood specimen 07/08/2017 4:00 AM 017 4:09 (specimen) EST AM EST Resulting Agency Comment Spec In Lab Yuan Webber MD HEMATOLOGY ORDERABLES Performing Organization Address City/[facility]/[place] [address] (ABNORMAL) Electrolytes panel (07/08/2017 4:00 AM EST) P athologist Signature Sodium 139 135 - 145 [facility] mmol/L [facility] Potassium 4.7 3.5 - 5.0 [facility] mmol/L [facility] Comment: result rechecked-JLK Please note: ??Patients with WBC >100,00 0 may have falsely elevated Potassium levels. ??For accurate Potassium quantif ication in these patients send serum separator tube (gold top) for subsequent determinations. ??Contact the Clinical Chemistry Laboratory if there are any qu estions. Chloride 104 98 - 107 mmol/L [facility] CO2 21 (L) 22 - 31 mmol/L [facility] Anion Gap 14 5 - 15 mmol/L [facility] Specimen Anatomical Collection Method Collection Time Receive d Time (Source) Location / / Volume Laterality Blood specimen 07/08/2017 4:00 AM 017 4:10 (specimen) EST AM EST Resulting Agency Comment Spec In Lab Yuan Webber MD CHEMISTRY ORDERABLES Performing Organization Address City/[facility]/[place] [address] (ABNORMAL) Cardiac Enzymes (LEB/CGP) (07/08/2017 4:00 AM EST) athologist Signature Troponin-T 1.88 (H) 0.00 - [facility] 0.00 ng/mL [facility] Comment: The 99th percentile for Troponin T is le ss than 0.01 ng/mL, any detectable cTnT concentration using this assay should be considered elevated. According to the third universal definit ion of myocardial infarction the following criteria with a clinical prese ntation consistent with acute myocardial ischemia meets the diagnosis for a myocardial infarction (MS). Detection of a rise and/or fall of [...] additional sample may be indicated. Reference: Third [place] Definition of Myocardial Infarction. Journal of the [place] [employer] 2012;60:1581-98 CK, Total 413 (H) 0 - 200 unit/L [facility] Comment: result rechecked-JLK Specimen Anatomical Collection Method Collection Time Receive d Time (Source) Location / / Volume Laterality Blood specimen 07/08/2017 4:00 AM 017 4:09 (specimen) EST AM EST Resulting Agency Comment Spec In Lab Yuan Webber MD CHEMISTRY ORDERABLES Performing Organization Address City/State/[place] [address] (ABNORMAL) Glucose, fasting (07/08/2017 4:00 AM EST) athologist Signature Glucose 287 (H) 65 - 99 [place] Fasting mg/dL [facility] Comment: ?Fasting* Glucose Interpretive [...] of Diabetes Mellitus, Position Statement from the [place] [employer]. ??Diabete s Care, Volume 33, Supplement 1, Jul 2009 Specimen Anatomical Collection Method Collection Time Receive d Time (Source) Location / / Volume Laterality Blood specimen 07/08/2017 4:00 AM 017 4:09 (specimen) EST AM EST Resulting Agency Comment Spec In Lab Yuan Webber MD CHEMISTRY ORDERABLES Performing Organization Address City/[facility] [place] [address] (ABNORMAL) Creatinine (07/08/2017 4:00 AM EST) Analysis Performed At [facility] Time Signature Creatinine 1.55 (H) 0.80 - [facility] 1.50 mg/dL [facility] Estimated GFR 44 (L) >=60 [facility] Comment: The reported eGFR should be multiplied b y 1.2 for patients. The MDRD is not an appropriate measure o f renal function for patients with body mass extremes or in patients with acute kidney failure. http://[employer]/DHnkdep http://[employer]/DHMCnkf Specimen Anatomical Collection Method Collection Time Receive d Time (Source) Location / / Volume Laterality Blood specimen 07/08/2017 4:00 AM 017 4:09 (specimen) EST AM EST Resulting Agency Comment Spec In Lab Yuan Webber MD CHEMISTRY ORDERABLES Performing Organization Address City/[facility]/[place] [address] BUN (07/08/2017 4:00 AM EST) athologist Signature BUN 16 10 - 20 [facility] Specimen Anatomical Collection Method Collection Time Receive d Time (Source) Location / / Volume Laterality Blood specimen 07/08/2017 4:00 AM 017 4:09 (specimen) EST AM EST Resulting Agency Comment Spec In Lab Yuan Webber MD CHEMISTRY ORDERABLES Performing Organization Address City/State/[place] [address] (ABNORMAL) POCT Glucose (07/08/2017 3:00 AM EST) athologist Signature POC Glucose 273 (H) 65 - 199 [facility] mg/dL [facility] Comment: Supplemental ranges: <140 mg/dL before meals <180 mg/dL all other times of the day Specimen Anatomical Collection Method Collection Time Receive d Time (Source) Location / / Volume Laterality Blood specimen 07/08/2017 3:00 AM 017 3:00 (specimen) EST AM EST Daphne Shahid MD POINT OF CARE TEST ORDERABLE S Performing Organization Address City/[facility]/[place] [address] (ABNORMAL) POCT Glucose (07/08/2017 1:57 AM EST) athologist Signature POC Glucose 288 (H) 65 - 199 [facility] mg/dL [facility] Comment: Supplemental ranges: <140 mg/dL before meals <180 mg/dL all other times of the day Specimen Anatomical Collection Method Collection Time Receive d Time (Source) Location / / Volume Laterality Blood specimen 07/08/2017 1:57 AM 017 1:57 (specimen) EST AM EST Daphne Shahid MD POINT OF CARE TEST ORDERABLE S Performing Organization Address City/State/[place] [address] (ABNORMAL) POCT Glucose (07/08/2017 1:01 AM EST) athologist Signature POC Glucose 315 (H) 65 - 199 [facility] mg/dL [facility] Comment: Supplemental ranges: <140 mg/dL before meals <180 mg/dL all other times of the day Specimen Anatomical Collection Method Collection Time Receive d Time (Source) Location / / Volume Laterality Blood specimen 07/08/2017 1:01 AM 017 1:01 (specimen) EST AM EST Daphne Shahid MD POINT OF CARE TEST ORDERABLE S Performing Organization Address City/State/ZIP [place] [address] (ABNORMAL) BLOOD GAS 2 ARTERIAL (07/08/2017 12:09 AM EST) athologist Signature pH Art 7.26 7.35 - [facility] (Critical) 7.45 [facility] Comment: Noted by director of instrumental music. pCO2 Art 41 35 - 45 mmHg [facility] pO2 Art 96 85 - 104 mmHg [facility] HCO3 Art 17.7 (L) 20.0 - 26.0 mmol/L [facility] BE Art -9.4 (L) -3.0 - 3.0 mmol/L [facility] Hgb Blood Gas 12.4 (L) 13.7 - 16.5 gm/dL [facility] O2HB Art 94.7 94.0 - 97.0 % [facility] COHB Art 0.2 % [facility] Comment: Nonsmokers: 0.5-1.5% COHB Smokers: Variable, but usually less than 10% Toxic: 20-30% COHB Lethal: Greater than 60% COHB METHB Art 0.6 <=1.5 % [facility] Na Whole Blood 141 135 - 145 mmol/L [facility] K Whole Blood 3.5 3.5 - 5.0 mmol/L [facility] Comment: Please note: Patients with WBC >100,000 may have falsely elevated Potassium levels. Contact the Clinical Chemistry L aboratory if there are any questions. ICa Whole Blood 1.03 (L) 1.15 - 1.33 mmol/L [facility] Comment: Note: ??Total bilirubin higher than 20 m g/dL may lead to falsely low ionized calcium. CL Whole Blood 109 (H) 98 - 107 mmol/L [facility] Gluc Whole Bld 315 (H) 65 - 199 mg/dL [facility] Comment: Diabetes: >=200 mg/dL plus symp toms. Lactate WB 7.6 (Critical) 0.5 - 2.2 mmol/L [facility] Comment: Noted by director of instrumental music. FIO2 Art 40 % [facility] PF Ratio Art 240 [facility] Specimen Anatomical Collection Method Collection Time Receive d Time (Source) Location / / Volume Laterality Blood specimen Arterial Draw / 07/08/2017 12:09 2016 5:31 (specimen) Unknown AM EST AM EST Resulting Agency Comment Spec In Lab Samy Maldonado MD CHEMISTRY ORDERABLES Performing Organization Address City/State/[place] [address] (ABNORMAL) POCT Glucose (07/07/2017 10:56 PM EST) P athologist Signature POC Glucose 292 (H) 65 - 199 [facility] mg/dL [facility] Comment: Supplemental ranges: <140 mg/dL before meals <180 mg/dL all other times of the day Specimen Anatomical Collection Method Collection Time Receive d Time (Source) Location / / Volume Laterality Blood specimen 07/07/2017 10:56 7 (specimen) PM EST 10:56 PM EST Daphne Shahid MD POINT OF CARE TEST ORDERABLE S Performing Organization Address City/State/[place] [address] (ABNORMAL) BLOOD GAS 2 ARTERIAL (07/07/2017 10:04 PM EST) athologist Signature pH Art 7.22 7.35 - [facility] (Critical) 7.45 [facility] Comment: Noted by director of instrumental music. pCO2 Art 42 35 - 45 mmHg [facility] pO2 Art 94 85 - 104 mmHg [facility] HCO3 Art 16.9 (L) 20.0 - 26.0 mmol/L [facility] BE Art -10.7 (L) -3.0 - 3.0 mmol/L [facility] Hgb Blood Gas 13.0 (L) 13.7 - 16.5 gm/dL [facility] O2HB Art 93.8 (L) 94.0 - 97.0 % [facility] COHB Art 0.7 % [facility] Comment: Nonsmokers: 0.5-1.5% COHB Smokers: Variable, but usually less than 10% Toxic: 20-30% COHB Lethal: Greater than 60% COHB METHB Art 0.7 <=1.5 % [facility] Na Whole Blood 140 135 - 145 mmol/L [facility] K Whole Blood 3.3 (L) 3.5 - 5.0 mmol/L [facility] Comment: Please note: Patients with WBC >100,000 may have falsely elevated Potassium levels. Contact the Clinical Chemistry L aboratory if there are any questions. ICa Whole Blood 1.07 (L) 1.15 - 1.33 mmol/L [facility] Comment: Note: ??Total bilirubin higher than 20 m g/dL may lead to falsely low ionized calcium. CL Whole Blood 107 98 - 107 mmol/L [facility] Gluc Whole Bld 304 (H) 65 - 199 mg/dL [facility] Comment: Diabetes: >=200 mg/dL plus symp toms. Lactate WB 8.2 (Critical) 0.5 - 2.2 mmol/L [facility] Comment: Noted by director of instrumental music. FIO2 Art 40 % [facility] PF Ratio Art 235 [facility] Specimen Anatomical Collection Method Collection Time Receive d Time (Source) Location / / Volume Laterality Blood specimen 07/07/2017:04 7 (specimen) PM EST 10:04 PM EST Daphne Shahid MD CHEMISTRY ORDERABLES Performing Organization Address City/[facility] [place] [address] (ABNORMAL) Hemoglobin (07/07/2017 10:00 PM EST) athologist Signature Hemoglobin 12.8 (L) 13.7 - [place] 16.5 gm/dL [facility] Specimen Anatomical Collection Method Collection Time Receive d Time (Source) Location / / Volume Laterality Blood specimen 07/07/2017 10:00 7 (specimen) PM EST 10:13 PM EST Resulting Agency Comment Spec In Lab Yuan Webber MD HEMATOLOGY ORDERABLES Performing Organization Address [facility] [place] [address] (ABNORMAL) Potassium (07/07/2017 10:00 PM EST) athologist Signature Potassium 3.4 (L) 3.5 - 5.0 [facility] mmol/L [facility] Comment: Please note: ??Patients [...] Webber MD CHEMISTRY ORDERABLES Performing Organization Address City/[facility]/ZIP [facility] [place] [address] (ABNORMAL) POCT Glucose (07/07/2017 8:49 PM EST) athologist Signature POC Glucose 241 (H) 65 - 199 [facility] mg/dL [facility] Comment: Supplemental ranges: <140 mg/dL before meals <180 mg/dL all other times of the day Specimen Anatomical Collection Method Collection Time Receive d Time (Source) Location / / Volume Laterality Blood specimen 07/07/2017 8:49 PM 017 8:49 (specimen) EST PM EST Daphne Shahid MD POINT OF CARE TEST ORDERABLE S Performing Organization Address City/[facility]/[place] [address] Prepare Albumin 5% in 250 mL (07/07/2017 8:03 PM EST) P athologist Signature Dispensed? Yes [facility] Specimen Anatomical Collection Method Collection Time Receive d Time (Source) Location / / Volume Laterality Blood specimen No Charge / 07/07/2017 8:03 PM 017 8:04 (specimen) Unknown EST PM EST Resulting Agency Comment Spec In Lab Micheal BROWN BLOOD BANK ORDERABLES Performing Organization Address [facility]/[place] [address] EKG 12 Lead (07/07/2017 7:17 PM EST) Component Value Ref Range Test Analysis Performed Pathologis t Method Time At Signature Ventricular rate 75 BPM MUSE SYSTEM Atrial Rate 75 BPM MUSE SYSTEM P-R Interval 168 ms MUSE SYSTEM QRS Duration 104 ms MUSE SYSTEM Q-T Interval 462 ms MUSE SYSTEM QTC Calculated 515 ms MUSE SYSTEM (Bezet) Calculated P [place] 52 degrees MUSE SYSTEM Calculated R [place] -40 degrees MUSE SYSTEM Calculated T [place] 39 degrees MUSE SYSTEM INTERPRETATION Normal sinus [...] 7.21 7.35 - [facility] (Critical) 7.45 [facility] Comment: Noted by director of instrumental music. pCO2 Art 50 (H) 35 - 45 mmHg [facility] pO2 Art 238 (H) 85 - 104 mmHg [facility] HCO3 Art 19.8 (L) 20.0 - 26.0 mmol/L [facility] BE Art -8.1 (L) -3.0 - 3.0 mmol/L [facility] Hgb Blood Gas 12.8 (L) 13.7 - 16.5 gm/dL [facility] O2HB Art 97.5 (H) 94.0 - 97.0 % [facility] COHB Art 0.5 % [facility] Comment: Nonsmokers: 0.5-1.5% COHB Smokers: Variable, but usually less than 10% Toxic: 20-30% COHB Lethal: Greater than 60% COHB METHB Art 0.7 <=1.5 % [facility] Na Whole Blood 140 135 - 145 mmol/L [facility] K Whole Blood 3.0 (Critical) 3.5 - 5.0 mmol/L [facility] Comment: Noted by director of instrumental music. Please note: Patients with WBC >100,000 may have falsely elevated Potassium levels. Contact the Clinical Chemistry L aboratory if there are any questions. ICa Whole Blood 1.07 (L) 1.15 - 1.33 mmol/L [facility] Comment: Note: ??Total bilirubin higher than 20 m g/dL may lead to falsely low ionized calcium. CL Whole Blood 107 98 - 107 mmol/L [facility] Gluc Whole Bld 270 (H) 65 - 199 mg/dL [facility] Comment: Diabetes: >=200 mg/dL plus symp toms. Lactate WB 4.9 (Critical) 0.5 - 2.2 mmol/L [facility] Comment: Noted by director of instrumental music. FIO2 Art 100 % [facility] PF Ratio Art 238 [facility] Specimen Anatomical Collection Method Collection Time Receive d Time (Source) Location / / Volume Laterality Blood specimen 07/07/2017 6:57 PM 017 6:57 (specimen) EST PM EST Daphne Shahid MD CHEMISTRY ORDERABLES Performing Organization Address City/State/ZIP [place] [address] (ABNORMAL) BLOOD GAS 2 ARTERIAL (07/07/2017 5:31 PM EST) athologist Signature pH Art 7.29 7.35 - [facility] (Critical) 7.45 [facility] Comment: Noted by director of instrumental music. pCO2 Art 48 (H) 35 - 45 mmHg [facility] pO2 Art 137 (H) 85 - 104 mmHg [facility] HCO3 Art 22.4 20.0 - 26.0 mmol/L [facility] BE Art -4.3 (L) -3.0 - 3.0 mmol/L [facility] Hgb Blood Gas 10.0 (L) 13.7 - 16.5 gm/dL [facility] O2HB Art 97.3 (H) 94.0 - 97.0 % [facility] COHB Art 0.3 % [facility] Comment: Nonsmokers: 0.5-1.5% COHB Smokers: Variable, but usually less than 10% Toxic: 20-30% COHB Lethal: Greater than 60% COHB METHB Art 0.3 <=1.5 % [facility] Na Whole Blood 132 (L) 135 - 145 mmol/L [facility] K Whole Blood 4.0 3.5 - 5.0 mmol/L [facility] Comment: Please note: Patients with WBC >100,000 may have falsely elevated Potassium levels. Contact the Clinical Chemistry L aboratory if there are any questions. ICa Whole Blood 1.14 (L) 1.15 - 1.33 mmol/L [facility] Comment: Note: ??Total bilirubin higher than 20 m g/dL may lead to falsely low ionized calcium. CL Whole Blood 105 98 - 107 mmol/L [facility] Gluc Whole Bld 293 (H) 65 - 199 mg/dL [facility] Comment: Diabetes: >=200 mg/dL plus symp toms. Lactate WB 3.1 (H) 0.5 - 2.2 mmol/L [facility] Specimen Anatomical Collection Method Collection Time Receive d Time (Source) Location / / Volume Laterality Blood specimen 07/07/2017 5:31 PM 017 5:31 (specimen) EST PM EST Daphne Shahid MD CHEMISTRY ORDERABLES Performing Organization Address City/[facility] Phon e Number [address] Fibrinogen (07/07/2017 5:30 PM EST) athologist Signature Fibrinogen 224 180 - 510 [facility] mg/dL [facility] Comment: Called by: JEET, Read back [...] Perez MD HEMATOLOGY ORDERABLES Performing Organization Address [facility] Phon e Number [address] APTT (07/07/2017 5:30 PM EST) P athologist Signature PTT 30 25 - 35 sec [facility] Comment: The recommended therapeutic range for fu ll dose, unfractionated heparin at [facility] is 80 ? 114 seconds. The use [...] Perez MD HEMATOLOGY ORDERABLES Performing Organization Address City/[facility]/[place] [address] (ABNORMAL) Prothrombin Time (07/07/2017 5:30 PM EST) P athologist Signature PT 19.0 (H) 11.8 - 14.0 [facility] [...] Perez MD HEMATOLOGY ORDERABLES Performing Organization Address City/[facility] [place] [address] (ABNORMAL) Hemogram (07/07/2017 5:30 PM EST) P athologist Signature WBC 19.6 (H) 4.0 - 9.5 [facility] x10(3)/[facility] LABORATORY RBC 3.08 (L) 4.58 - [facility] 5.54 [facility] x10(6)/[facility] LABORATORY Hemoglobin 9.2 (L) 13.7 - [facility] 16.5 gm/dL [facility] Hematocrit 28.0 (L) 40.5 - [facility] 48.5 % [facility] Comment: This result has been called to MONICA MORAN by DONALD GROSSMAN on 07 07 2017 at 1759, and has been read back. MCV 90.9 82.9 - 93.1 fL [facility] MCH 29.9 27.5 - 32.1 pg [facility] MCHC 32.9 32.0 - 35.7 gm/dL [facility] Platelets 155 145 - 357 x10(3)/[facility] LABORATORY RDWSD 46.5 (H) 36.0 - 45.0 fL [facility] RDWCV 14.1 (H) 11.4 - 13.8 % [facility] MPV 9.5 7.6 - 12.9 [facility] LABORATORY nRBC % Auto 0.0 % [facility] nRBC Abs Auto 0.000 0.000 - 0.000 x10(3)/[facility] LABORATORY Specimen Anatomical Collection Method Collection Time Receive d Time (Source) Location / / Volume Laterality Blood specimen 07/07/2017 5:30 PM 017 5:34 (specimen) EST PM EST Resulting Agency Comment Spec In Lab Yifan Perez MD HEMATOLOGY ORDERABLES Performing Organization Address City/[facility]/ZIP [facility] Phon e Number [address] Prepare Platelets, Apheresis (07/07/2017 5:00 PM EST) P athologist Signature Dispensed? Yes [facility] Specimen Anatomical Collection Method Collection Time Receive d Time (Source) Location / / Volume Laterality Blood specimen 07/07/2017 5:00 PM 017 4:58 (specimen) EST PM EST Daphne Shahid MD BLOOD BANK ORDERABLES Performing Organization Address City/[facility] Phon e Number [address] Platelet count (07/07/2017 4:55 PM EST) P athologist Signature Platelets 177 145 - 357 [facility] x10(3)/[facility] LABORATORY Plat Immature 1.5 0.0 - 7.4 [facility] Comment: Limitation of the Immature Platelet Frac tion (IPF)-May be less reliable when the platelet count is less than 74w400/u L due to statistical imprecision. The IPF [...] in a decreased state of production. References: [employer] The Clinical Value of the Immature Platelet Fraction (IPF) in Cell Recovery Document Number 10-1143 12/2010 [employer] The Role of the Imm ature [...] Organization Address City/State/ZIP [place] [address] (ABNORMAL) Hemoglobin and Hematocrit, blood (07/07/2017 4:55 PM EST) P athologist Signature Hemoglobin 9.1 (L) 13.7 - 16.5 [facility] gm/dL [facility] Comment: This result has been called to MALKA MORAN by DONALD GROSSMAN on 07 07 2017 at 1734, and has been read back. Hematocrit 26.6 (L) 40.5 - 48.5 % [facility] Comment: This result has been [...] Organization Address City/State/ZIP [place] [address] (ABNORMAL) BLOOD GAS 2 ARTERIAL (07/07/2017 4:38 PM EST) Analysis Performed At Patho logist Time Signature pH Art 7.37 7.35 - [facility] 7.45 [facility] pCO2 Art 44 35 - 45 [facility] mmHg [facility] pO2 Art 322 (H) 85 - 104 [facility]ORATORY HCO3 Art 24.9 20.0 - [facility] 26.0 [facility] mmol/L [facility] BE Art -0.4 -3.0 - 3.0 [facility] mmol/L [facility] Hgb Blood Gas 10.1 (L) 13.7 - [facility] 16.5 gm/dL [facility] O2HB Art 98.7 (H) 94.0 - [facility] 97.0 % [facility] COHB Art 0.1 % [facility] Comment: Nonsmokers: 0.5-1.5% COHB Smokers: Variable, but usually less than 10% Toxic: 20-30% COHB Lethal: Greater than 60% COHB METHB Art 0.3 <=1.5 % [facility] Na Whole Blood 130 (L) 135 - 145 mmol/L [facility] K Whole Blood 5.7 (H) 3.5 - 5.0 mmol/L [facility] Comment: Please note: Patients with WBC >100,000 may have falsely elevated Potassium levels. Contact the Clinical Chemistry L aboratory if there are any questions. ICa Whole Blood 0.89 (Critical) 1.15 - 1.33 mmol/L [facility] Comment: Noted by director of instrumental music. Note: ??Total bilirubin higher than 20 m g/dL may lead to falsely low ionized calcium. CL Whole Blood 101 98 - 107 mmol/L [facility] Gluc Whole Bld 295 (H) 65 - 199 mg/dL [facility] Comment: Diabetes: >=200 mg/dL plus symp toms. Lactate WB 1.7 0.5 - 2.2 mmol/L [facility] Specimen Anatomical Collection Method Collection Time Receive d Time (Source) Location / / Volume Laterality Blood specimen 07/07/2017 4:38 PM 017 4:38 (specimen) EST PM EST Daphne Shahid MD CHEMISTRY ORDERABLES Performing Organization Address City/State/ZIP [place] [address] (ABNORMAL) BLOOD GAS 2 VENOUS (07/07/2017 4:06 PM EST) Analysis Performed At Patho logist Time Signature pH Cody 7.31 (L) 7.32 - [facility] 7.42 [facility] pCO2 Cody 47 41 - 51 [facility]ATORY pO2 Cody 53 (H) 25 - 40 [facility] LABORATORY HCO3 Cody 22.7 mmol/L [facility] BE Cody -3.7 mmol/L [facility] Hgb Blood Gas 10.2 (L) 13.7 - [facility] 16.5 gm/dL [facility] O2HB Cody 81.0 % [facility] COHB Cody 1.0 % [facility] Comment: Nonsmokers: 0.5-1.5% COHB Smokers: Variable, but usually less than 10% Toxic: 20-30% COHB Lethal: Greater than 60% COHB METHB Cody 0.3 <=1.5 % [facility] Na Whole Blood 132 (L) 135 - 145 mmol/L [facility] K Whole Blood 5.3 (H) 3.5 - 5.0 mmol/L [facility] Comment: Please note: Patients with WBC >100,000 may have falsely elevated Potassium levels. Contact the Clinical Chemistry L aboratory if there are any questions. ICa Whole Blood 0.90 (Critical) 1.15 - 1.33 mmol/L [facility] Comment: Noted by director of instrumental music. Note: ??Total bilirubin higher than 20 m g/dL may lead to falsely low ionized calcium. CL Whole Blood 100 98 - 107 mmol/L [facility] Gluc Whole Bld 231 (H) 65 - 199 mg/dL [facility] Comment: Diabetes: >=200 mg/dL plus symp toms Lactate WB 1.1 0.5 - 2.2 mmol/L [facility] BGas Source Venous [facility] Specimen Anatomical Collection Method Collection Time Receive d Time (Source) Location / / Volume Laterality Blood specimen 07/07/2017 4:06 PM 017 4:06 (specimen) EST PM EST Daphne Shahid MD CHEMISTRY ORDERABLES Performing Organization Address City/State/ZIP [place] [address] (ABNORMAL) BLOOD GAS 2 ARTERIAL (07/07/2017 4:05 PM EST) Analysis Performed At Patho logist Time Signature pH Art 7.36 7.35 - [facility] 7.45 [facility] pCO2 Art 40 35 - 45 [facility] LABORATORY pO2 Art 282 (H) 85 - 104 [facility] LABORATORY HCO3 Art 22.1 20.0 - [facility] 26.0 [facility] mmol/L [facility] BE Art -3.4 (L) -3.0 - 3.0 [facility] mmol/L [facility] Hgb Blood Gas 10.2 (L) 13.7 - [facility] 16.5 gm/dL [facility] O2HB Art 98.4 (H) 94.0 - [facility] 97.0 % [facility] COHB Art 0.3 % [facility] Comment: Nonsmokers: 0.5-1.5% COHB Smokers: Variable, but usually less than 10% Toxic: 20-30% COHB Lethal: Greater than 60% COHB METHB Art 0.3 <=1.5 % [facility] Na Whole Blood 131 (L) 135 - 145 mmol/L [facility] K Whole Blood 5.4 (H) 3.5 - 5.0 mmol/L [facility] Comment: Please note: Patients with WBC >100,000 may have falsely elevated Potassium levels. Contact the Clinical Chemistry L aboratory if there are any questions. ICa Whole Blood 0.86 (Critical) 1.15 - 1.33 mmol/L [facility] Comment: Noted by director of instrumental music. Note: ??Total bilirubin higher than 20 m g/dL may lead to falsely low ionized calcium. CL Whole Blood 101 98 - 107 mmol/L [facility] Gluc Whole Bld 260 (H) 65 - 199 mg/dL [facility] Comment: Diabetes: >=200 mg/dL plus symp toms. Lactate WB 1.4 0.5 - 2.2 mmol/L [facility] Specimen Anatomical Collection Method Collection Time Receive d Time (Source) Location / / Volume Laterality Blood specimen 07/07/2017 4:05 PM 017 4:05 (specimen) EST PM EST Daphne Shahid MD CHEMISTRY ORDERABLES Performing Organization Address City/State/ZIP [place] [address] (ABNORMAL) BLOOD GAS 2 ARTERIAL (07/07/2017 2:29 PM EST) Analysis Performed At Patho logist Time Signature pH Art 7.43 7.35 - [facility] 7.45 [facility] pCO2 Art 36 35 - 45 [facility] mmHg [facility] pO2 Art 221 (H) 85 - 104 [facility] mmHg [facility] HCO3 Art 23.2 20.0 - [facility] 26.0 [facility] mmol/L [facility] BE Art -1.2 -3.0 - 3.0 [facility] mmol/L [facility] Hgb Blood Gas 13.9 13.7 - [facility] 16.5 gm/dL [facility] O2HB Art 97.8 (H) 94.0 - [facility] 97.0 % [facility] COHB Art 1.1 % [facility] Comment: Nonsmokers: 0.5-1.5% COHB Smokers: Variable, but usually less than 10% Toxic: 20-30% COHB Lethal: Greater than 60% COHB METHB Art 0.3 <=1.5 % [facility] Na Whole Blood 139 135 - 145 mmol/L [facility] K Whole Blood 4.0 3.5 - 5.0 mmol/L [facility] Comment: Please note: Patients with WBC >100,000 may have falsely elevated Potassium levels. Contact the Clinical Chemistry L aboratory if there are any questions. ICa Whole Blood 1.11 (L) 1.15 - 1.33 mmol/L [facility] Comment: Note: ??Total bilirubin higher than 20 m g/dL may lead to falsely low ionized calcium. CL Whole Blood 104 98 - 107 mmol/L [facility] Gluc Whole Bld 184 65 - 199 mg/dL [facility] Comment: Diabetes: >=200 mg/dL plus symp toms. Lactate WB 1.5 0.5 - 2.2 mmol/L [facility] Specimen Anatomical Collection Method Collection Time Receive d Time (Source) Location / / Volume Laterality Blood specimen 07/07/2017 2:29 PM 017 2:29 (specimen) EST PM EST Daphne Shahid MD CHEMISTRY ORDERABLES Performing Organization Address City/[facility] [place] [address] Prepare Coag Factors (Non-Hemophilia) (07/07/2017 1:25 PM EST) P athologist Signature Dispensed? Yes [facility] Specimen Anatomical Collection Method Collection Time Receive d Time (Source) Location / / Volume Laterality Blood specimen 07/07/2017 1:25 PM 017 1:21 (specimen) EST PM EST Daphne Shahid MD BLOOD BANK ORDERABLES Performing Organization Address City/[facility]/ZIP [place] [address] Prepare RBC (07/07/2017 1:10 PM EST) P athologist Signature Dispensed? Yes [facility] Specimen Anatomical Collection Method Collection Time Receive d Time (Source) Location / / Volume Laterality Blood specimen 07/07/2017 1:10 PM 017 1:05 (specimen) EST PM EST Daphne Shahid MD BLOOD BANK ORDERABLES Performing Organization Address City/[facility]/ZIP Code Phon e Number [address] POCT Glucose (07/07/2017 11:56 AM EST) P athologist Signature POC Glucose 188 65 - 199 [place] [facility] mg/dL [facility] Comment: Supplemental ranges: <140 mg/dL before meals <180 mg/dL all other times of the day Specimen Anatomical Collection Method Collection Time Receive d Time (Source) Location / / Volume Laterality Blood specimen 07/07/2017 11:56 7 (specimen) AM EST 11:56 AM EST Daphne Shahid MD POINT OF CARE TEST ORDERABLE S Performing Organization Address City/[facility]/ZIP Code Phon e Number [address] POCT Glucose (07/07/2017 11:05 AM EST) P athologist Signature POC Glucose 168 65 - 199 [facility] Comment: Supplemental ranges: <140 mg/dL before meals <180 mg/dL all other times of the day Specimen Anatomical Collection Method Collection Time Receive d Time (Source) Location / / Volume Laterality Blood specimen 07/07/2017 11:05 7 (specimen) AM EST 11:05 AM EST Daphne Shahid MD POINT OF CARE TEST ORDERABLE S Performing Organization Address City/State/ZIP Code Phon e Number [address] POCT Glucose (07/07/2017 10:02 AM EST) P athologist Signature POC Glucose 191 65 - 199 [facility] Comment: Supplemental ranges: <140 mg/dL before meals <180 mg/dL all other times of the day Specimen Anatomical Collection Method Collection Time Receive d Time (Source) Location / / Volume Laterality Blood specimen 07/07/2017 10:02 7 (specimen) AM EST 10:02 AM EST Daphne Shahid MD POINT OF CARE TEST ORDERABLE S Performing Organization Address City/[facility]/ZIP Code Phon e Number [address] POCT Glucose (07/07/2017 7:53 AM EST) P athologist Signature POC Glucose 178 65 - 199 [place] [facility] mg/dL [facility] Comment: Supplemental ranges: <140 mg/dL before meals <180 mg/dL all other times of the day Specimen Anatomical Collection Method Collection Time Receive d Time (Source) Location / / Volume Laterality Blood specimen 07/07/2017 7:53 AM 017 7:53 (specimen) EST AM EST Daphne Shahid MD POINT OF CARE TEST ORDERABLE S Performing Organization Address City/[facility]/ZIP Code Phon e Number [address] POCT Glucose (07/07/2017 7:03 AM EST) P athologist Signature POC Glucose 188 65 - 199 [place] [facility] mg/dL [facility] Comment: Supplemental ranges: <140 mg/dL before meals <180 mg/dL all other times of the day Specimen Anatomical Collection Method Collection Time Receive d Time (Source) Location / / Volume Laterality Blood specimen 07/07/2017 7:03 AM 017 7:03 (specimen) EST AM EST Daphne Shahid MD POINT OF CARE TEST ORDERABLE S Performing Organization Address City/[facility]/[place] [address] (ABNORMAL) POCT Glucose (07/07/2017 6:17 AM EST) P athologist Signature POC Glucose 207 (H) 65 - 199 [facility] mg/dL [facility] Comment: Supplemental ranges: <140 mg/dL before meals <180 mg/dL all other times of the day Specimen Anatomical Collection Method Collection Time Receive d Time (Source) Location / / Volume Laterality Blood specimen 07/07/2017 6:17 AM 017 6:17 (specimen) EST AM EST Daphne Shahid MD POINT OF CARE TEST ORDERABLE S Performing Organization Address City/State/ZIP Code Phon e Number [address] Differential, Automated (07/07/2017 5:15 AM EST) P athologist Signature Neutrophils % 69.7 % [facility] Neutr Abs (ANC) 5.32 1.70 - [facility] 6.10 [facility] x10(3)/[facility] LABORATORY Lymphocytes % 16.3 % [facility] Lymphocytes Abs 1.2 0.9 - 3.2 [facility] x10(3)/[facility] LABORATORY Monocytes % 10.5 % [facility] Monocyte Abs 0.8 0.3 - 0.9 [facility] x10(3)/[facility] LABORATORY Eosinophils % 2.5 % [facility] Eosinophils Abs 0.2 0.0 - 0.4 [facility] x10(3)[facility] LABORATORY Basophils % 0.7 % [facility] Basophils Abs 0.0 0.0 - 0.1 [facility] x10(3)/[facility] LABORATORY Immature Gran % 0.30 % [facility] Comment: Immature granulocytes(IG's)percentage an d absolute count will include metamyelocytes, myelocytes, and promyelo cytes. Blood smears from CBCs yielding IG's will be scanned manually for concor dance. If this scan disagrees with the automated IG or if promyelocytes are not ed, a manual differential will be performed. Melisa Gran Abs 0.02 0.00 - 0.04 x10(3)/[facility] LABORATORY Specimen Anatomical Collection Method Collection Time Receive d Time (Source) Location / / Volume Laterality Blood specimen 07/07/2017 5:15 AM 017 5:34 (specimen) EST AM EST Resulting Agency Comment Spec In Lab Daphne Shahid MD HEMATOLOGY ORDERABLES Performing Organization Address City/State/ZIP Code Phon e Number [address] (ABNORMAL) Hemogram (07/07/2017 5:15 AM EST) Analysis Performed At Patho logist Time Signature WBC 7.6 4.0 - 9.5 [facility] x10(3)/[facility] LABORATORY RBC 4.82 4.58 - [place] [facility] 5.54 [facility] x10(6)/[facility] LABORATORY Hemoglobin 14.4 13.7 - [facility] 16.5 gm/dL [facility] Hematocrit 42.1 40.5 - [facility] 48.5 % [facility] MCV 87.3 82.9 - [facility] 93.1 [facility] LABORATORY MCH 29.9 27.5 - [facility] 32.1 pg [facility] MCHC 34.2 32.0 - [facility] 35.7 gm/dL [facility] Platelets 188 145 - 357 [facility] x10(3)/[facility] LABORATORY RDWSD 45.1 (H) 36.0 - [facility] 45.0 [facility] LABORATORY RDWCV 14.3 (H) 11.4 - [facility] 13.8 % [facility] LABORATORY MPV 9.4 7.6 - 12.9 [facility] LABORATORY nRBC % Auto 0.0 % [facility] nRBC Abs Auto 0.000 0.000 - [facility] 0.000 [facility] x10(3)/[facility] LABORATORY Specimen Anatomical Collection Method Collection Time Receive d Time (Source) Location / / Volume Laterality Blood specimen 07/07/2017 5:15 AM 017 5:34 (specimen) EST AM EST Resulting Agency Comment Spec In Lab Daphne Shahid MD HEMATOLOGY ORDERABLES Performing Organization Address City/State/[place] [address] (ABNORMAL) APTT (07/07/2017 5:15 AM EST) P athologist Signature PTT 69 (H) 25 - 35 sec [facility] Comment: The recommended therapeutic range for fu ll dose, unfractionated heparin at [facility] is 80 ? 114 seconds. The use [...] Shahid MD HEMATOLOGY ORDERABLES Performing Organization Address City/[facility]/ZIP Code Phon e Number [address] Magnesium (07/07/2017 5:15 AM EST) athologist Signature Magnesium 0.94 0.69 - 1.07 [facility] mmol/L [facility] Specimen Anatomical Collection Method Collection Time Receive d Time (Source) Location / / Volume Laterality Blood specimen 07/07/2017 5:15 AM 017 5:34 (specimen) EST AM EST Resulting Agency Comment Spec In Lab Daphne Shahid MD CHEMISTRY ORDERABLES Performing Organization Address City/[facility]/[place] [address] (ABNORMAL) Basic Metabolic Panel (non-fasting) (07/07/2017 5:15 AM EST) athologist Signature Glucose Lvl 203 (H) 65 - 199 [facility] mg/dL [facility] Comment: Diabetes: >=200 mg/dL plus symp toms BUN 15 10 - 20 mg/dL [facility] Creatinine 1.09 0.80 - 1.50 mg/dL [facility] Sodium 142 135 - 145 mmol/L [facility] Potassium 4.4 3.5 - 5.0 mmol/L [facility] Comment: Please note: ??Patients with WBC >100,00 0 may have falsely elevated Potassium levels. ??For accurate Potassium quantif ication in these patients send serum separator tube (gold top) for subsequent determinations. ??Contact the Clinical Chemistry Laboratory if there are any qu estions. Chloride 102 98 - 107 mmol/L [facility] CO2 26 22 - 31 mmol/L [facility] Anion Gap 14 5 - 15 mmol/L [facility] Calcium 8.6 8.5 - 10.5 mg/dL [facility] Estimated GFR >60 >=60 [facility] Comment: The reported eGFR should be multiplied b y 1.2 for patients. The MDRD is not an appropriate measure o f renal function for patients with body mass extremes or in patients with acute kidney failure. http://[employer]/DHnkdep [email or web address]/DHMCnkf Specimen Anatomical Collection Method Collection Time Receive d Time (Source) Location / / Volume Laterality Blood specimen 07/07/2017 5:15 AM 017 5:34 (specimen) EST AM EST Resulting Agency Comment Spec In Lab Daphne Shahid MD CHEMISTRY ORDERABLES Performing Organization Address City/State/ZIP Code Phon e Number [place] [phone] (ABNORMAL) Cardiac Enzymes (LEB/CGP) (07/07/2017 5:15 AM EST) P athologist Signature Troponin-T 2.07 (H) 0.00 - [facility] 0.00 ng/mL [facility] Comment: The 99th percentile for Troponin T is le ss than 0.01 ng/mL, any detectable cTnT concentration using this assay should be considered elevated. According to the third universal definit ion of myocardial infarction the following criteria with a clinical prese ntation consistent with acute myocardial ischemia meets the diagnosis for a myocardial infarction (MS). Detection of a rise and/or fall of [...] additional sample may be indicated. Reference: Third [place] Definition of Myocardial Infarction. Journal of the [place] [employer] 2012;60:1581-98 CK, Total 88 0 - 200 unit/L [facility] Specimen Anatomical Collection Method Collection Time Receive d Time (Source) Location / / Volume Laterality Blood specimen 07/07/2017 5:15 AM 017 5:34 (specimen) EST AM EST Resulting Agency Comment Spec In Lab Daphne Shahid MD CHEMISTRY ORDERABLES Performing Organization Address City/[facility]/ZIP Code Phon e Number [address] POCT Glucose (07/07/2017 5:01 AM EST) P athologist Signature POC Glucose 182 65 - 199 [facility] mg/dL [facility] Comment: Supplemental ranges: <140 mg/dL before meals <180 mg/dL all other times of the day Specimen Anatomical Collection Method Collection Time Receive d Time (Source) Location / / Volume Laterality Blood specimen 07/07/2017 5:01 AM 017 5:01 (specimen) EST AM EST Daphne Shahid MD POINT OF CARE TEST ORDERABLE S Performing Organization Address City/[facility]/ZIP Code Phon e Number [address] POCT Glucose (07/07/2017 4:08 AM EST) P athologist Signature POC Glucose 199 65 - 199 [facility] Comment: Supplemental ranges: <140 mg/dL before meals <180 mg/dL all other times of the day Specimen Anatomical Collection Method Collection Time Receive d Time (Source) Location / / Volume Laterality Blood specimen 07/07/2017 4:08 AM 017 4:08 (specimen) EST AM EST Daphne Shahid MD POINT OF CARE TEST ORDERABLE S Performing Organization Address City/[facility]/ZIP Code Phon e Number [address] POCT Glucose (07/07/2017 3:03 AM EST) athologist Signature POC Glucose 188 65 - 199 [place] mg/dL [facility] Comment: Supplemental ranges: <140 mg/dL before meals <180 mg/dL all other times of the day Specimen Anatomical Collection Method Collection Time Receive d Time (Source) Location / / Volume Laterality Blood specimen 07/07/2017 3:03 AM 017 3:03 (specimen) EST AM EST Daphne Shahid MD POINT OF CARE TEST ORDERABLE S Performing Organization Address City/State/[place] [address] (ABNORMAL) POCT Glucose (07/07/2017 2:08 AM EST) athologist Signature POC Glucose 200 (H) 65 - 199 [facility]dL [facility] Comment: Supplemental ranges: <140 mg/dL before meals <180 mg/dL all other times of the day Specimen Anatomical Collection Method Collection Time Receive d Time (Source) Location / / Volume Laterality Blood specimen 07/07/2017 2:08 AM 017 2:08 (specimen) EST AM EST Daphne Shahid MD POINT OF CARE TEST ORDERABLE S Performing Organization Address City/State/[place] [address] (ABNORMAL) POCT Glucose (07/07/2017 1:31 AM EST) athologist Signature POC Glucose 209 (H) 65 - 199 [place] mg/dL [facility] Comment: Supplemental ranges: <140 mg/dL before meals <180 mg/dL all other times of the day Specimen Anatomical Collection Method Collection Time Receive d Time (Source) Location / / Volume Laterality Blood specimen 07/07/2017 1:31 AM 017 1:31 (specimen) EST AM EST Daphne Shahid MD POINT OF CARE TEST ORDERABLE S Performing Organization Address City/State/[place] [address] XR Chest PA or [...] Signature POC Glucose 161 65 - 199 [facility] mg/dL [facility] Comment: Supplemental ranges: <140 mg/dL before meals <180 mg/dL all other times of the day Specimen Anatomical Collection Method Collection Time Receive d Time (Source) Location / / Volume Laterality Blood specimen 07/07/2017 12:07 7 (specimen) AM EST 12:07 AM EST Daphne Shahid MD POINT OF CARE TEST ORDERABLE S Performing Organization Address City/State/[place] [address] (ABNORMAL) APTT (07/07/2017 12:00 AM EST) athologist Signature PTT 103 (H) 25 - 35 sec [facility] Comment: The recommended therapeutic range for fu ll dose, unfractionated heparin at [facility] is 80 ? 114 seconds. The use [...] Shahid MD HEMATOLOGY ORDERABLES Performing Organization Address City/[facility]/ZIP Code Phon e Number [address] POCT Glucose (07/06/2017 9:55 PM EST) athologist Signature POC Glucose 109 65 - 199 [facility] mg/dL [facility] Comment: Supplemental ranges: <140 mg/dL before meals <180 mg/dL all other times of the day Specimen Anatomical Collection Method Collection Time Receive d Time (Source) Location / / Volume Laterality Blood specimen 07/06/2017 9:55 PM 017 9:55 (specimen) EST PM EST Daphne Shahid MD POINT OF CARE TEST ORDERABLE S Performing Organization Address City/[facility]/ZIP Code Phon e Number [address] POCT Glucose (07/06/2017 9:04 PM EST) athologist Signature POC Glucose 120 65 - 199 [facility] mg/dL [facility] Comment: Supplemental ranges: <140 mg/dL before meals <180 mg/dL all other times of the day Specimen Anatomical Collection Method Collection Time Receive d Time (Source) Location / / Volume Laterality Blood specimen 07/06/2017 9:04 PM 017 9:04 (specimen) EST PM EST Daphne Shahid MD POINT OF CARE TEST ORDERABLE S Performing Organization Address City/[facility]/ZIP Code Phon [place] [facility] [address] POCT Glucose (07/06/2017 7:45 PM EST) athologist Signature POC Glucose 158 65 - 199 [facility] mg/dL [facility] Comment: Supplemental ranges: <140 mg/dL before meals <180 mg/dL all other times of the day Specimen Anatomical Collection Method Collection Time Receive d Time (Source) Location / / Volume Laterality Blood specimen 07/06/2017 7:45 PM 017 7:45 (specimen) EST PM EST Daphne Shahid MD POINT OF CARE TEST ORDERABLE S Performing Organization Address City/[facility]/[place] [address] Potassium (07/06/2017 7:40 PM EST) athologist [facility] Potassium 3.9 3.5 - 5.0 [facility] mmol/L [facility] Comment: Please note: ??Patients [...] Organization Address City/State/[place] [address] (ABNORMAL) Cardiac Enzymes (LEB/CGP) (07/06/2017 7:40 PM EST) athologist Signature Troponin-T 2.27 (H) 0.00 [facility] 0.[facility] ng/mL [facility] Comment: The 99th percentile for Troponin T is le ss than 0.01 ng/mL, any detectable cTnT concentration using this assay should be considered elevated. According to the third universal definit ion of myocardial infarction the following criteria with a clinical prese ntation consistent with acute myocardial ischemia meets the diagnosis for a myocardial infarction (MS). Detection of a rise and/or fall of [...] additional sample may be indicated. Reference: Third [place] Definition of Myocardial Infarction. Journal of the [place] [employer] 2012;60:1581-98 CK, Total 93 0 - 200 unit/L [facility] Specimen Anatomical Collection Method Collection Time Receive d Time (Source) Location / / Volume Laterality Blood specimen 07/06/2017 7:40 PM 017 7:52 (specimen) EST PM EST Resulting Agency Comment Spec In Lab Daphne Shahid MD CHEMISTRY ORDERABLES Performing Organization Address City/State/[place] [address] (ABNORMAL) POCT Glucose (07/06/2017 7:13 PM EST) P athologist Signature POC Glucose 200 (H) 65 - 199 [facility] mg/dL [facility] Comment: Supplemental ranges: <140 mg/dL before meals <180 mg/dL all other times of the day Specimen Anatomical Collection Method Collection Time Receive d Time (Source) Location / / Volume Laterality Blood specimen 07/06/2017 7:13 PM 017 7:13 (specimen) EST PM EST Daphne Shahid MD POINT OF CARE TEST ORDERABLE S Performing Organization Address City/State/[place] [address] (ABNORMAL) APTT (07/06/2017 6:15 PM EST) athologist Signature PTT 94 (H) 25 - 35 sec [facility] Comment: The recommended therapeutic range for fu ll dose, unfractionated heparin at [facility] is 80 ? 114 seconds. The use [...] Shahid MD HEMATOLOGY ORDERABLES Performing Organization Address City/[facility]/ZIP Code Phon e Number [address] (ABNORMAL) POCT Glucose (07/06/2017 6:03 PM EST) athologist Signature POC Glucose 236 (H) 65 - 199 [facility] mg/dL [facility] Comment: Supplemental ranges: <140 mg/dL before meals <180 mg/dL all other times of the day Specimen Anatomical Collection Method Collection Time Receive d Time (Source) Location / / Volume Laterality Blood specimen 07/06/2017 6:03 PM 017 6:03 (specimen) EST PM EST Daphne Shahid MD POINT OF CARE TEST ORDERABLE S Performing Organization Address City/[facility]/[place] [address] (ABNORMAL) POCT Glucose (07/06/2017 5:01 PM EST) athologist Signature POC Glucose 235 (H) 65 - 199 [facility] Comment: Supplemental ranges: <140 mg/dL before meals <180 mg/dL all other times of the day Specimen Anatomical Collection Method Collection Time Receive d Time (Source) Location / / Volume Laterality Blood specimen 07/06/2017 5:01 PM 017 5:01 (specimen) EST PM EST Daphne Shahid MD POINT OF CARE TEST ORDERABLE S Performing Organization Address City/[facility]/[place] [address] (ABNORMAL) POCT Glucose (07/06/2017 4:06 PM EST) athologist Signature POC Glucose 202 (H) 65 - 199 [facility] mg/dL [facility] Comment: Supplemental ranges: <140 mg/dL before meals <180 mg/dL all other times of the day Specimen Anatomical Collection Method Collection Time Receive d Time (Source) Location / / Volume Laterality Blood specimen 07/06/2017 4:06 PM 017 4:06 (specimen) EST PM EST Daphne Shahid MD POINT OF CARE TEST ORDERABLE S Performing Organization Address City/State/[place] [address] POCT Glucose (07/06/2017 2:59 PM EST) athologist Signature POC Glucose 178 65 - 199 [facility] mg/dL [facility] Comment: Supplemental ranges: <140 mg/dL before meals <180 mg/dL all other times of the day Specimen Anatomical Collection Method Collection Time Receive d Time (Source) Location / / Volume Laterality Blood specimen 07/06/2017 2:59 PM 017 2:59 (specimen) EST PM EST Daphne Shahid MD POINT OF CARE TEST ORDERABLE S Performing Organization Address City/State/[place] [address] (ABNORMAL) Cardiac Enzymes (LEB/CGP) (07/06/2017 2:10 PM EST) athologist Signature Troponin-T 2.34 (H) 0.00 [facility] ng/mL [facility] Comment: The 99th percentile for Troponin T is le ss than 0.01 ng/mL, any detectable cTnT concentration using this assay should be considered elevated. According to the third universal definit ion of myocardial infarction the following criteria with a clinical prese ntation consistent with acute myocardial ischemia meets the diagnosis for a myocardial infarction (MS). Detection of a rise and/or fall of [...] additional sample may be indicated. Reference: Third [place] Definition of Myocardial Infarction. Journal of the [place] [employer] 2012;60:1581-98 CK, Total 101 0 - 200 unit/L [facility] Specimen Anatomical Collection Method Collection Time Receive d Time (Source) Location / / Volume Laterality Blood specimen 07/06/2017 2:10 PM 017 2:26 (specimen) EST PM EST Resulting Agency Comment Spec In Lab Daphne Shahid MD CHEMISTRY ORDERABLES Performing Organization Address City/[facility]/ZIP Code Phon e Number [address] POCT Glucose (07/06/2017 2:08 PM EST) athologist Signature POC Glucose 192 65 - 199 [facility] mg/dL [facility] Comment: Supplemental ranges: <140 mg/dL before meals <180 mg/dL all other times of the day Specimen Anatomical Collection Method Collection Time Receive d Time (Source) Location / / Volume Laterality Blood specimen 07/06/2017 2:08 PM 017 2:08 (specimen) EST PM EST Daphne Shahid MD POINT OF CARE TEST ORDERABLE S Performing Organization Address City/[facility]/ZIP [facility] Phon e Number [address] POCT Glucose (07/06/2017 1:04 PM EST) athologist Signature POC Glucose 162 65 - 199 [facility] mg/dL [facility] Comment: Supplemental ranges: <140 mg/dL before meals <180 mg/dL all other times of the day Specimen Anatomical Collection Method Collection Time Receive d Time (Source) Location / / Volume Laterality Blood specimen 07/06/2017 1:04 PM 017 1:04 (specimen) EST PM EST Daphne Shahid MD POINT OF CARE TEST ORDERABLE S Performing Organization Address City/[facility]/ZIP Code Phon e Number [address] POCT Glucose (07/06/2017 12:05 PM EST) P athologist Signature POC Glucose 196 65 - 199 [facility] mg/dL [facility] Comment: Supplemental ranges: <140 mg/dL before meals <180 mg/dL all other times of the day Specimen Anatomical Collection Method Collection Time Receive d Time (Source) Location / / Volume Laterality Blood specimen 07/06/2017 12:05 7 (specimen) PM EST 12:05 PM EST Daphne Shahid MD POINT OF CARE TEST ORDERABLE S Performing Organization Address City/[facility]/[place] [address] EKG 12 Lead (07/06/2017 12:00 PM EST) Component Value Ref Range Test Analysis Performed Pathologis t Method Time At Signature Ventricular rate 91 BPM MUSE SYSTEM Atrial Rate 91 BPM MUSE SYSTEM P-R Interval 140 ms MUSE SYSTEM QRS Duration 94 ms MUSE SYSTEM Q-T Interval 394 ms MUSE SYSTEM QTC Calculated 484 ms MUSE SYSTEM (Bezet) Calculated P [place] 36 degrees MUSE SYSTEM Calculated R [place] -19 degrees MUSE SYSTEM Calculated T [place] 104 degrees MUSE SYSTEM INTERPRETATION Normal sinus rhythm MUSE SYSTEM 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) ST & T wave abnormality, consider lateral ischemia Abnormal ECG When compared with ECG of 05-JUL-2017 20:39, No significant change was found Confirmed by MD Verma Gregory A. ([id number]) on 07/06/2017 5:07:33 PM Specimen Anatomical Collection Method Collection Time Receive d Time (Source) Location / / Volume Laterality 07/06/2017 12:00 07/06/2017 5:07 PM EST PM EST Daphne Shahid MD ECG ORDERABLES Performing Organization Address City/State/ZIP Code Phon e Number MUSE SYSTEM ABORH Recheck Status (07/06/2017 12:00 PM EST) [facility] Method Time Signature ABORH Type Completed [facility] LABORATORY Specimen Anatomical Collection Method Collection Time Receive d Time (Source) Location / / Volume Laterality Blood specimen 07/06/2017 12:00 7 (specimen) PM EST 12:24 PM EST Resulting Agency Comment Spec In Lab Daphne Shahid MD BLOOD BANK ORDERABLES Performing Organization Address City/State/ZIP Code Phon e Number [address] Antibody screen (07/06/2017 12:00 PM EST) [facility] Method [place] Signature Ab Screen Negative [facility] LABORATORY Expires at 07/09/2017 [facility] [id number] on: [facility] Specimen Anatomical Collection Method Collection Time Receive d Time (Source) Location / / Volume Laterality Blood specimen 07/06/2017 12:00 7 (specimen) PM EST 12:24 PM EST Resulting Agency Comment Spec In Lab Daphne Shahid MD BLOOD BANK ORDERABLES Performing Organization Address City/State/ZIP Code Phon e Number [address] ABO/Rh Typing (07/06/2017 12:00 [...] Organization Address City/State/[place] [address] Prothrombin Time (07/06/2017 11:24 AM EST) P athologist Signature PT 13.3 11.8 - 14.0 [facility] LABORATORY INR 1.0 0.9 - 1.1 [facility] [...] Shahid MD HEMATOLOGY ORDERABLES Performing Organization Address City/[facility]/ZIP Code Phon e Number [address] (ABNORMAL) APTT (07/06/2017 11:24 AM EST) P athologist Signature PTT 52 (H) 25 - 35 sec [facility] Comment: The recommended therapeutic range for fu ll dose, unfractionated heparin at [facility] is 80 ? 114 seconds. The use [...] Shahid MD HEMATOLOGY ORDERABLES Performing Organization Address City/[facility]/[place] [address] POCT Glucose (07/06/2017 11:02 AM EST) P athologist Signature POC Glucose 187 65 - 199 [facility] mg/dL [facility] Comment: Supplemental ranges: <140 mg/dL before meals <180 mg/dL all other times of the day Specimen Anatomical Collection Method Collection Time Receive d Time (Source) Location / / Volume Laterality Blood specimen 07/06/2017 11:02 7 (specimen) AM EST 11:02 AM EST Daphne Shahid MD POINT OF CARE TEST ORDERABLE S Performing Organization Address City/State/ZIP Code Phon e Number [address] POCT Glucose (07/06/2017 10:18 AM EST) athologist Signature POC Glucose 193 65 - 199 [place] mg/dL [facility] Comment: Supplemental ranges: <140 mg/dL before meals <180 mg/dL all other times of the day Specimen Anatomical Collection Method Collection Time Receive d Time (Source) Location / / Volume Laterality Blood specimen 07/06/2017 10:18 7 (specimen) AM EST 10:18 AM EST Daphne Shahid MD POINT OF CARE TEST ORDERABLE S Performing Organization Address City/[facility]/ZIP Code Phon e Number [address] POCT Glucose (07/06/2017 9:25 AM EST) athologist Signature POC Glucose 182 65 - 199 [facility] Comment: Supplemental ranges: <140 mg/dL before meals <180 mg/dL all other times of the day Specimen Anatomical Collection Method Collection Time Receive d Time (Source) Location / / Volume Laterality Blood specimen 07/06/2017 9:25 AM 017 9:25 (specimen) EST AM EST Daphne Shahid MD POINT OF CARE TEST ORDERABLE S Performing Organization Address City/[facility]/[place] [address] (ABNORMAL) Cardiac Enzymes (LEB/CGP) (07/06/2017 8:10 AM EST) athologist Signature Troponin-T 2.26 (H) 0.00 [facility]/mL [facility] Comment: The 99th percentile for Troponin T is le ss than 0.01 ng/mL, any detectable cTnT concentration using this assay should be considered elevated. According to the third universal definit ion of myocardial infarction the following criteria with a clinical prese ntation consistent with acute myocardial ischemia meets the diagnosis for a myocardial infarction (MS). Detection of a rise and/or fall of [...] additional sample may be indicated. Reference: Third [place] Definition of Myocardial Infarction. Journal of the [place] [employer] 2012;60:1581-98 CK, Total 124 0 - 200 unit/L [facility] Specimen Anatomical Collection Method Collection Time Receive d Time (Source) Location / / Volume Laterality Blood specimen 07/06/2017 8:10 AM 017 8:23 (specimen) EST AM EST Resulting Agency Comment Spec In Lab Daphne Shahid MD CHEMISTRY ORDERABLES Performing Organization Address City/State/ZIP Code Phon e Number [address] Magnesium (07/06/2017 8:10 AM EST) P athologist Signature Magnesium 0.84 0.69 - 1.07 [facility]/L [facility] Specimen Anatomical Collection Method Collection Time Receive d Time (Source) Location / / Volume Laterality Blood specimen 07/06/2017 8:10 AM 017 8:21 (specimen) EST AM EST Resulting Agency Comment Spec In Lab Daphne Shahid MD CHEMISTRY ORDERABLES Performing Organization Address City/[facility]/ZIP Code Phon e Number [address] (ABNORMAL) Basic Metabolic Panel (non-fasting) (07/06/2017 8:10 AM EST) athologist Signature Glucose Lvl 199 65 - 199 [facility] mg/dL [facility] Comment: Diabetes: >=200 mg/dL plus symp toms BUN 16 10 - 20 mg/dL [facility] Creatinine 1.04 0.80 - 1.50 mg/dL [facility] Sodium 141 135 - [...] 107 mmol/L [facility] CO2 27 22 - 31 mmol/L [facility] Anion Gap 13 5 - 15 mmol/L [facility] Calcium 8.1 (L) 8.5 - 10.5 mg/dL [facility] Estimated GFR >60 >=60 [facility] Comment: The reported eGFR should be multiplied b y 1.2 for patients. The MDRD is not an appropriate measure o f renal function for patients with body mass extremes or in patients with acute kidney failure. [email or web address] [email or web address] Specimen Anatomical Collection Method Collection Time Receive d Time (Source) Location / / Volume Laterality Blood specimen 07/06/2017 8:10 AM 017 8:21 (specimen) EST AM EST Resulting Agency Comment Spec In Lab Daphne Shahid MD CHEMISTRY ORDERABLES Performing Organization Address City/State/[place] [address] POCT Glucose (07/06/2017 7:34 AM EST) P athologist Signature POC Glucose 198 65 - 199 [facility] mg/dL [facility] LABORATORY Comment: Supplemental ranges: <140 mg/dL before meals <180 mg/dL all other times of the day Specimen Anatomical Collection Method Collection Time Receive d Time (Source) Location / / Volume Laterality Blood specimen 07/06/2017 7:34 AM 017 7:34 (specimen) EST AM EST Daphne Shahid MD POINT OF CARE TEST ORDERABLE S Performing Organization Address City/State/ZIP Code Phon e Number [address] POCT Glucose (07/06/2017 7:03 AM EST) P athologist Signature POC Glucose 181 65 - 199 [facility] mg/dL [facility] LABORATORY Comment: Supplemental ranges: <140 mg/dL before meals <180 mg/dL all other times of the day Specimen Anatomical Collection Method Collection Time Receive d Time (Source) Location / / Volume Laterality Blood specimen 07/06/2017 7:03 AM 017 7:03 (specimen) EST AM EST Daphne Shahid MD POINT OF CARE TEST ORDERABLE S Performing Organization Address City/State/[place] [address] XR Chest PA or [...] Signature POC Glucose 172 65 - 199 [facility] mg[facility]dL [facility] LABORATORY Comment: Supplemental ranges: <140 mg/dL before meals <180 mg/dL all other times of the day Specimen Anatomical Collection Method Collection Time Receive d Time (Source) Location / / Volume Laterality Blood specimen 07/06/2017 6:21 AM 017 6:21 (specimen) EST AM EST Daphne Shahid MD POINT OF CARE TEST ORDERABLE S Performing Organization Address City/[facility]/[place] [address] POCT Glucose (07/06/2017 5:08 AM EST) athologist Signature POC Glucose 154 65 - 199 [facility] mg[facility]dL [facility] LABORATORY Comment: Supplemental ranges: <140 mg/dL before meals <180 mg/dL all other times of the day Specimen Anatomical Collection Method Collection Time Receive d Time (Source) Location / / Volume Laterality Blood specimen 07/06/2017 5:08 AM 017 5:08 (specimen) EST AM EST Daphne Shahid MD POINT OF CARE TEST ORDERABLE S Performing Organization Address City/State/[place] [address] POCT Glucose (07/06/2017 4:05 AM EST) athologist Signature POC Glucose 142 65 - 199 [facility] mg/dL [facility] LABORATORY Comment: Supplemental ranges: <140 mg/dL before meals <180 mg/dL all other times of the day Specimen Anatomical Collection Method Collection Time Receive d Time (Source) Location / / Volume Laterality Blood specimen 07/06/2017 4:05 AM 017 4:05 (specimen) EST AM EST Daphne Shahid MD POINT OF CARE TEST ORDERABLE S Performing Organization Address City/State/ZIP Code Phon e Number [address] POCT Glucose (07/06/2017 3:00 AM EST) athologist Signature POC Glucose 116 65 - 199 [facility] mg/dL [facility] LABORATORY Comment: Supplemental ranges: <140 mg/dL before meals <180 mg/dL all other times of the day Specimen Anatomical Collection Method Collection Time Receive d Time (Source) Location / / Volume Laterality Blood specimen 07/06/2017 3:00 AM 017 3:00 (specimen) EST AM EST Daphne Shahid MD POINT OF CARE TEST ORDERABLE S Performing Organization Address City/State/ZIP Code Phon e Number [address] Potassium (07/06/2017 2:20 AM EST) athologist Signature Potassium 3.9 3.5 - 5.0 [facility] mmol/L [facility] LABORATORY Comment: Please note: ??Patients [...] Shahid MD CHEMISTRY ORDERABLES Performing Organization Address City/[facility]/ZIP Code Phon e Number [place] [phone] Differential, Automated (07/06/2017 2:20 AM EST) P athologist Signature Neutrophils % 72.9 % [facility] LABORATORY Neutr Abs (ANC) 5.53 1.70 - [facility] 6.10 [facility] x10(3)/[facility] LABORATORY Lymphocytes % 16.4 % [facility] LABORATORY Lymphocytes Abs 1.2 0.9 - 3.2 [facility] x10(3)/[facility] LABORATORY Monocytes % 9.4 % [facility] LABORATORY Monocyte Abs 0.7 0.3 - 0.9 [facility] x10(3)/[facility] LABORATORY Eosinophils % 0.5 % [facility] LABORATORY Eosinophils Abs 0.0 0.0 - 0.4 [facility] x10(3)/[facility] LABORATORY Basophils % 0.4 % [facility] LABORATORY Basophils Abs 0.0 0.0 - 0.1 [facility] x10(3)/[facility] LABORATORY Immature Gran % 0.40 % [facility] LABORATORY Comment: Immature granulocytes(IG's)percentage an d absolute count will include metamyelocytes, myelocytes, and promyelo cytes. Blood smears from CBCs yielding IG's will be scanned manually for concor dance. If this scan disagrees with the automated IG or if promyelocytes are not ed, a manual differential will be performed. Melisa Gran Abs 0.03 0.00 - 0.04 x10(3)/[facility] MAR Y [facility] LABORATORY Specimen Anatomical Collection Method Collection Time Receive d Time (Source) Location / / Volume Laterality Blood specimen 07/06/2017 2:20 AM 017 2:33 (specimen) EST AM EST Resulting Agency Comment Spec In Lab Daphne Shahid MD HEMATOLOGY ORDERABLES Performing Organization Address City/State/ZIP Code Phon e Number [place] [phone] (ABNORMAL) Hemogram (07/06/2017 2:20 AM EST) Analysis Performed At Patho logist Time Signature WBC 7.6 4.0 - 9.5 [facility] x10(3)/[facility] LABORATORY RBC 4.52 (L) 4.58 - [place] 5.54 [facility] x10(6)/[facility] LABORATORY Hemoglobin 13.4 (L) 13.7 - [facility] 16.5 gm/dL [facility] LABORATORY Hematocrit 39.7 (L) 40.5 - [facility] 48.5 % [facility] LABORATORY MCV 87.8 82.9 - [facility] 93.1 [facility] LABORATORY MCH 29.6 27.5 - [facility] 32.1 pg [facility] LABORATORY MCHC 33.8 32.0 - [facility] 35.7 gm/dL [facility] LABORATORY Platelets 189 145 - 357 [facility] x10(3)/[facility] RDWSD 45.6 (H) 36.0 - [facility] 45.0 [facility] LABORATORY RDWCV 14.3 (H) 11.4 - [facility] 13.8 % [facility] LABORATORY MPV 9.1 7.6 - 12.9 [facility] LABORATORY nRBC % Auto 0.0 % [facility] LABORATORY nRBC Abs Auto 0.000 0.000 - [facility] 0.000 [facility] x10(3)/[facility] LABORATORY Specimen Anatomical Collection Method Collection Time Receive d Time (Source) Location / / Volume Laterality Blood specimen 07/06/2017 2:20 AM 017 2:33 (specimen) EST AM EST Resulting Agency Comment Spec In Lab Daphne Shahid MD HEMATOLOGY ORDERABLES Performing Organization Address City/State/ZIP [place] [address] (ABNORMAL) APTT (07/06/2017 2:20 AM EST) P athologist Signature PTT 52 (H) 25 - 35 sec [facility] LABORATORY Comment: The recommended therapeutic range for fu ll dose, unfractionated heparin at [facility] is 80 ? 114 seconds. The use [...] Address City/State/ZIP Code Phon e Number [address] POCT Glucose (07/06/2017 2:20 AM EST) athologist Signature POC Glucose 115 65 - 199 [facility] mg/dL [facility] LABORATORY Comment: Supplemental ranges: <140 mg/dL before meals <180 mg/dL all other times of the day Specimen Anatomical Collection Method Collection Time Receive d Time (Source) Location / / Volume Laterality Blood specimen 07/06/2017 2:20 AM 017 2:20 (specimen) EST AM EST Daphne Shahid MD POINT OF CARE TEST ORDERABLE S Performing Organization Address City/State/[place] [address] (ABNORMAL) Cardiac Enzymes (LEB/CGP) (07/06/2017 2:20 AM EST) athologist Signature Troponin-T 2.13 (H) 0.00 - [place] [facility] 0.00 ng/mL [facility] LABORATORY Comment: The 99th percentile for Troponin T is le ss than 0.01 ng/mL, any detectable cTnT concentration using this assay should be considered elevated. According to the third universal definit ion of myocardial infarction the following criteria with a clinical prese ntation consistent with acute myocardial ischemia meets the diagnosis for a myocardial infarction (MS). Detection of a rise and/or fall of [...] additional sample may be indicated. Reference: Third [place] Definition of Myocardial Infarction. Journal of the [place] [employer] 2012;60:1581-98 CK, Total 129 0 - 200 unit/L [facility] LABORATORY Specimen Anatomical Collection Method Collection Time Receive d Time (Source) Location / / Volume Laterality Blood specimen 07/06/2017 2:20 AM 017 2:33 (specimen) EST AM EST Resulting Agency Comment Spec In Lab Daphne Shahid MD CHEMISTRY ORDERABLES Performing Organization Address City/State/Z[place] [address] (ABNORMAL) Hemoglobin A1c (07/06/2017 [...] Mellitus, Diabetes Care 2013; 36: Suppl. 1, S67-49 Est Avg Gluc See note mg/dL [facility] LABORATORY Comment: Estimated Average Glucose not [...] into estimated average glucose values. ??Diabetes Care 2008:31(8):4217-3897. Specimen Anatomical Collection Method Collection Time Receive d Time (Source) Location / / Volume Laterality Blood specimen 07/06/2017 2:20 AM 017 2:34 (specimen) EST AM EST Resulting Agency Comment Spec In Lab Daphne Shahid MD CHEMISTRY ORDERABLES Performing Organization Address City/State/ZIP Code Phon e Number [place] [phone] (ABNORMAL) Lipid Panel (07/06/2017 2:20 AM EST) [facility] Method Time Signature Chol, Total 150 <=239 [place] mg/dL [facility] LABORATORY Triglycerides 129 <=199 [place] mg/dL [facility] LABORATORY HDL 32 (L) >=40 [place] mg/dL [facility] LABORATORY LDL Cholesterol 92 <=190 [place] mg/dL [facility] LABORATORY Chol/HDL Ratio 4.7 ratio [facility] LABORATORY Lipid See Note [place] Interpretation [facility] LABORATORY Comment: Lipid management should be guided by a p atient? s ASCVD risk, goals and preferences. ACC/AHA Guidelines recommend high intens ity statin if clinical ASCVD or LDL greater than or equal to 190 mg/dL. http://ROI land investmenturl.com/YSE-TAU-Xbfngxuqo Adults aged 40-75 with LDL 70-189 mg/dL should have their 10 year ASCVD risk estimated with the ACC/AHA ASCVD risk es timator http://tools.acc.org/ZEVQN-Tryc-Ketowalo r/ Statin should be discussed if risk [...] Address City/State/ZIP Code Phon e Number [address] POCT Glucose (07/06/2017 1:09 AM EST) athologist Signature POC Glucose 121 65 - 199 [facility] mg/dL [facility] LABORATORY Comment: Supplemental ranges: <140 mg/dL before meals <180 mg/dL all other times of the day Specimen Anatomical Collection Method Collection Time Receive d Time (Source) Location / / Volume Laterality Blood specimen 07/06/2017 1:09 AM 017 1:09 (specimen) EST AM EST Daphne Shahid MD POINT OF CARE TEST ORDERABLE S Performing Organization Address City/State/[place] [address] POCT Glucose (07/06/2017 12:06 AM EST) athologist Signature POC Glucose 147 65 - 199 [facility] mg[facility]dL [facility] LABORATORY Comment: Supplemental ranges: <140 mg/dL before meals <180 mg/dL all other times of the day Specimen Anatomical Collection Method Collection Time Receive d Time (Source) Location / / Volume Laterality Blood specimen 07/06/2017 12:06 7 (specimen) AM EST 12:06 AM EST Daphne Shahid MD POINT OF CARE TEST ORDERABLE S Performing Organization Address City/State/[place] [address] (ABNORMAL) POCT Glucose (07/05/2017 10:56 PM EST) P athologist Signature POC Glucose 200 (H) 65 - 199 [place] mg/dL [facility] LABORATORY Comment: Supplemental ranges: <140 mg/dL before meals <180 mg/dL all other times of the day Specimen Anatomical Collection Method Collection Time Receive d Time (Source) Location / / Volume Laterality Blood specimen 07/05/2017 10:56 7 (specimen) PM EST 10:56 PM EST Daphne Shahid MD POINT OF CARE TEST ORDERABLE S Performing Organization Address City/State/[place] [address] (ABNORMAL) POCT Glucose (07/05/2017 10:05 PM EST) P athologist Signature POC Glucose 225 (H) 65 - 199 [place] mg/dL [facility] LABORATORY Comment: Supplemental ranges: <140 mg/dL before meals <180 mg/dL all other times of the day Specimen Anatomical Collection Method Collection Time Receive d Time (Source) Location / / Volume Laterality Blood specimen 07/05/2017 10:05 7 (specimen) PM EST 10:05 PM EST Daphne Shahid MD POINT OF CARE TEST ORDERABLE S Performing Organization Address City/State/[place] [address] (ABNORMAL) POCT Glucose (07/05/2017 9:02 PM EST) P athologist Signature POC Glucose 301 (H) 65 - 199 [place] mg/dL [facility] LABORATORY Comment: Supplemental ranges: <140 mg/dL before meals <180 mg/dL all other times of the day Specimen Anatomical Collection Method Collection Time Receive d Time (Source) Location / / Volume Laterality Blood specimen 07/05/2017 9:02 PM 017 9:02 (specimen) EST PM EST Daphne Shahid MD POINT OF CARE TEST ORDERABLE S Performing Organization Address City/State/ZIP Code Phon e Number [place] [phone] XR Chest PA or [...] 474 ms MUSE SYSTEM (Bezet) Calculated P [place] 50 degrees MUSE SYSTEM Calculated R [place] -28 degrees MUSE SYSTEM Calculated T [place] 90 degrees MUSE SYSTEM INTERPRETATION Sinus tachycardia [...] (ABNORMAL) Differential, Automated (07/05/2017 8:20 PM EST) [facility] gist Method Time Signature Neutrophils % 88.4 % [facility] LABORATORY Neutr Abs (ANC) 9.08 (H) 1.70 - [facility] 6.10 [facility] x10(3)/[facility] L LABORATORY Lymphocytes % 7.0 % [facility] LABORATORY Lymphocytes Abs 0.7 (L) 0.9 - 3.2 [facility] x10(3)/[facility] LABORATORY Monocytes % 3.7 % [facility] LABORATORY Monocyte Abs 0.4 0.3 - 0.9 [facility] x10(3)/[facility] LABORATORY Eosinophils % 0.1 % [facility] LABORATORY Eosinophils Abs 0.0 0.0 - 0.4 [facility] x10(3)/[facility] LABORATORY Basophils % 0.2 % [facility] LABORATORY Basophils Abs 0.0 0.0 - 0.1 [facility] x10(3)/[facility] LABORATORY Immature Gran % 0.60 % [facility] LABORATORY Comment: Immature granulocytes(IG's)percentage an d absolute count will include metamyelocytes, myelocytes, and promyelo cytes. Blood smears from CBCs yielding IG's will be scanned manually for concor dance. If this scan disagrees with the automated IG or if promyelocytes are not ed, a manual differential will be performed. Melisa Gran Abs 0.06 (H) 0.00 - 0.04 x10(3)/[facility] LABORATORY Specimen Anatomical Collection Method Collection Time Receive d Time (Source) Location / / Volume Laterality Blood specimen 07/05/2017 8:20 PM 017 8:27 (specimen) EST PM EST Resulting Agency Comment Spec In Lab Daphne Shahid MD HEMATOLOGY ORDERABLES Performing Organization Address City/State/Z[place] [address] (ABNORMAL) Hemogram (07/05/2017 8:20 PM EST) Analysis Performed At Patho logist Time Signature WBC 10.3 (H) 4.0 - 9.5 [facility] x10(3)/[facility] LABORATORY RBC 4.64 4.58 - [facility] 5.54 [facility] x10(6)/[facility] LABORATORY Hemoglobin 14.1 13.7 - [facility] 16.5 gm/dL [facility] LABORATORY Hematocrit 40.8 40.5 - [facility] 48.5 % [facility] LABORATORY MCV 87.9 82.9 - [facility] 93.1 [facility] LABORATORY MCH 30.4 27.5 - [facility] 32.1 pg [facility] LABORATORY MCHC 34.6 32.0 - [facility] 35.7 gm/dL [facility] LABORATORY Platelets 204 145 - 357 [facility] x10(3)/[facility] LABORATORY RDWSD 46.1 (H) 36.0 - [facility] 45.0 [facility] LABORATORY RDWCV 14.5 (H) 11.4 - [facility] 13.8 % [facility] LABORATORY MPV 9.7 7.6 - 12.9 [facility] LABORATORY nRBC % Auto 0.0 % [facility] LABORATORY nRBC Abs Auto 0.000 0.000 - [facility] 0.000 [facility] x10(3)/[facility] LABORATORY Specimen Anatomical Collection Method Collection Time Receive d Time (Source) Location / / Volume Laterality Blood specimen 07/05/2017 8:20 PM 017 8:27 (specimen) EST PM EST Resulting Agency Comment Spec In Lab Daphne Shahid MD HEMATOLOGY ORDERABLES Performing Organization Address City/[facility]/ZIP Code Phon e Number [address] APTT (07/05/2017 8:20 PM EST) athologist Signature PTT 32 25 - 35 sec [facility] LABORATORY Comment: The recommended therapeutic range for fu ll dose, unfractionated heparin at [facility] is 80 ? 114 seconds. The use [...] Shahid MD HEMATOLOGY ORDERABLES Performing Organization Address City/[facility]/ZIP [facility] [place] [address] (ABNORMAL) Cardiac Enzymes (LEB/CGP) (07/05/2017 8:20 PM EST) athologist Signature Troponin-T 2.11 (H) 0.00 - [facility] 0.00 ng/mL [facility] LABORATORY Comment: The 99th percentile for Troponin T is le ss than 0.01 ng/mL, any detectable cTnT concentration using this assay should be considered elevated. According to the third universal definit ion of myocardial infarction the following criteria with a clinical prese ntation consistent with acute myocardial ischemia meets the diagnosis for a myocardial infarction (MS). Detection of a rise and/or fall of [...] additional sample may be indicated. Reference: Third [place] Definition of Myocardial Infarction. Journal of the [place] [employer]iology 2012;60:1581-98 CK, Total 149 0 - 200 unit/L [facility] LABORATORY Specimen Anatomical Collection Method Collection Time Receive d Time (Source) Location / / Volume Laterality Blood specimen 07/05/2017 8:20 PM 017 8:27 (specimen) EST PM EST Resulting Agency Comment Spec In Lab Daphne Shahid MD CHEMISTRY ORDERABLES Performing Organization Address City/[facility]/[place] [address] (ABNORMAL) Magnesium (07/05/2017 8:20 PM EST) P athologist Signature Magnesium 0.68 (L) 0.69 - 1.07 [facility] mmol/L [facility] LABORATORY Specimen Anatomical Collection Method Collection Time Receive d Time (Source) Location / / Volume Laterality Blood specimen 07/05/2017 8:20 PM 017 8:27 (specimen) EST PM EST Resulting Agency Comment Spec In Lab Daphne Shahid MD CHEMISTRY ORDERABLES Performing Organization Address City/[facility]/[place] [address] (ABNORMAL) Basic Metabolic Panel (non-fasting) (07/05/2017 8:20 PM EST) P athologist Signature Glucose Lvl 321 (H) 65 - 199 [facility] mg/dL [facility] LABORATORY Comment: Diabetes: >=200 mg/dL plus symp toms BUN 20 10 - 20 mg/dL [facility] LABORATORY Creatinine 1.12 0.80 - 1.50 mg/dL [facility] LABORATORY Sodium 139 135 - 145 mmol/L [facility] LABORATORY Potassium 3.8 3.5 - 5.0 mmol/L [facility] LABORATORY Comment: Please note: ??Patients with WBC >100,00 0 may have falsely elevated Potassium levels. ??For accurate Potassium quantif ication in these patients send serum separator tube (gold top) for subsequent determinations. ??Contact the Clinical Chemistry Laboratory if there are any qu estions. Chloride 98 98 - 107 mmol/L [facility] LABORATORY CO2 27 22 - 31 mmol/L [facility] LABORATORY Anion Gap 14 5 - 15 mmol/L [facility] LABORATORY Calcium 8.1 (L) 8.5 - 10.5 mg/dL [facility] LABORATORY Estimated GFR >60 >=60 [facility] LABORATORY Comment: The reported eGFR should be multiplied b y 1.2 for patients. The MDRD is not an appropriate measure o f renal function for patients with body mass extremes or in patients with acute kidney failure. http://[employer]/DHnkdep http://[employer]/DHMCnkf Specimen Anatomical Collection Method Collection Time Receive d Time (Source) Location / / Volume Laterality Blood specimen 07/05/2017 8:20 PM 017 8:27 (specimen) EST PM EST Resulting Agency Comment Spec In Lab Daphne Shahid MD CHEMISTRY ORDERABLES Performing Organization Address City/[facility]/ZIP [place] [address] (ABNORMAL) POCT Glucose (07/05/2017 7:32 PM EST) P athologist Signature POC Glucose 296 (H) 65 - 199 [facility] mg/dL [facility] LABORATORY Comment: Supplemental ranges: <140 mg/dL before meals <180 mg/dL all other times of the day Specimen Anatomical Collection Method Collection Time Receive d Time (Source) Location / / Volume Laterality Blood specimen 07/05/2017 7:32 PM 017 7:32 (specimen) EST PM EST Daphne Shahid MD POINT OF CARE TEST ORDERABLE S Performing Organization Address City/State/ZIP Code Phon e Number [facility] [place] [address] CARDIAC CATHETERIZATION (07/05/2017 6:47 PM EST) Specimen (Source) Anatomical Location Collection Method / Collectio n Time Received Time / Laterality Volume Narrative CARDIOMAC SYSTEM - 07/05/2017 7:27 PM ES T ?[facility] ? Cardiac Cathete rization/Intervention Report ? Patient Name: Natalya, Gregory ? Procedure Date: 07/05/2017 ? A #: [id number] ? Primary Physician: Jet Mckenna ? Case #: [id number] ? File Name: [id number] ? Catheterization Order Number: [id number] ? [facility] ? Final Report [place], [place] ? Patient Name: ? Gregory Natalya ?ID#: ?[id number] ? : ?[id number] ? Procedure Date: ? [...] presented with: non -STEMI (w/i 7 days). [place] ?[employer] angina c lass was IV. 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 ? Jet Mckenna M.D. ? Electronically Signed by: Jet bunch M.D. ? Report Finalized: 07/05/2017 ??19:23 ? Report Last Ammended: 10/26/2017 ??10:29 ? Procedure Note Jet Mckenna MD - 10/26/2017Formatt ing of this note might be different from the original. [facility] Cardiac Catheterization/Intervention Re port Patient Name: Gregory Hoang Procedure Date: 07/05/2017 A #: [id number] Primary Physician: Jet Mckenna Case #: [id number] File Name: [id number] Catheterization Order Number: [id number] [facility] Final Report [place], [place] Patient Name: Gregory Hoang ID#: [id number] 3-9 : 1945 Procedure Date: July 05, [...] presented with: non-STEMI ( w/i 7 days). [place] [employer] angina class was IV. 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 Jet Mckenna M.D. Electronically Signed [...] E ? (Age): 1945(72y) Med Rec#: ? [id number] ?Sex: ?M ? Site Loc: ? [facility] ?Ht / Wt: ??173(cm)/86(kg) Pt. Loc: ?CCU ? BSA: ?2 Study Date: ?? 07/05/2017 ?Pt. Type: Inpatient Tape: ? Referring: Daphne Shahid ([id number]) Referring: MANDA ALCANTAR Reading: Blade Preston ([id number]) Environmental Specialist: Dayami Paula BA [facility] Diagnosis: *ICD-10-PCS Non-ST elevation (NSTEMI) [...] E-wave Vmax ?0.8 ?m/sec ? MV deceleration ciei451 ?msec ? MV A-wave Vmax ?0.8 ?m/sec [...] ? Mid-Inferior ?Akinetic ? Mid-Inferoseptal ?Hypokinetic ? [place]-Septal ? Akinetic ? [place]-Anterior ? Hypokinetic ? [place]-Lateral ?Hypokinetic ? [place]-Inferior ? Akinetic ? [place]-Tip ?Akinetic ? This report has been electronically sign ed by: _ Blade Preston MD ? 07/06/2017 08 :53:15 Images reviewed and interpretation verif ied [facility] Cardiac Ultrasound Laboratory Procedure Note Blade Preston MD - 07/06/2017Formatt ing of this note might be different from the original. Procedure: Transthoracic Echocardiogram Patient: NATALYA MCBRIDE(Age): [birth year]72y) Med Rec#: [id number] Sex: M Site Loc: [facility] Ht / Wt: 173(cm)/86(kg) Pt. Loc: [facility] BSA: 2 Study Date: 07/05/2017 Pt. Type: Inpatie nt Tape: Referring: Daphne Shahid ([id number]) Referring: MANDA ALCANTAR Reading: Blade Preston ([id number]) Environmental Specialist: Dayami Paula BA, [facility] Diagnosis: *ICD-10-PCS Non-ST elevation (NSTEMI) [...] MV E-wave Vmax 0.8 m/sec MV deceleration exod083 msec MV A-wave Vmax 0.8 m/sec MV [...] Hypokinetic Mid-Posterolateral Hypokinetic Mid-Inferior Akinetic Mid-Inferoseptal Hypokinetic [place]-Septal Akinetic [place]-Anterior Hypokinetic [place]-Lateral Hypokinetic [place]-Inferior Akinetic [place]-Tip Akinetic This report has been electronically sign ed by: _ Blade Preston MD 07/06/2017 08:53:15 Images reviewed and interpretation verif ied [facility] Cardiac Ultrasound Laboratory Daphne Shahid MD ECHO ORDERABLES Performing Organization Address City/State/ZIP Code Phon e Number [facility] Differential, Automated (07/05/2017 4:55 PM EST) P athologist Signature Neutrophils % 77.0 % [facility] Neutr Abs (ANC) 5.26 1.70 - [facility] 6.10 [facility] x10(3)/[facility] LABORATORY Lymphocytes % 13.3 % [facility] Lymphocytes Abs 0.9 0.9 - 3.2 [facility] x10(3)/[facility] LABORATORY Monocytes % 8.2 % [facility] Monocyte Abs 0.6 0.3 - 0.9 [facility] x10(3)/[facility] LABORATORY Eosinophils % 0.7 % [facility] Eosinophils Abs 0.0 0.0 - 0.4 [facility] x10(3)/[facility] LABORATORY Basophils % 0.4 % [facility] Basophils Abs 0.0 0.0 - 0.1 [facility] x10(3)/[facility] LABORATORY Immature Gran % 0.40 % [facility] Comment: Immature granulocytes(IG's)percentage an d absolute count will include metamyelocytes, myelocytes, and promyelo cytes. Blood smears from CBCs yielding IG's will be scanned manually for concor dance. If this scan disagrees with the automated IG or if promyelocytes are not ed, a manual differential will be performed. Melisa Gran Abs 0.03 0.00 - 0.04 x10(3)/[facility] LABORATORY Specimen Anatomical Collection Method Collection Time Receive d Time (Source) Location / / Volume Laterality Blood specimen 07/05/2017 4:55 PM 017 5:24 (specimen) EST PM EST Resulting Agency Comment Spec In Lab Daphne Shahid MD HEMATOLOGY ORDERABLES Performing Organization Address City/State/ZIP [place] [address] (ABNORMAL) Hemogram (07/05/2017 4:55 PM EST) Analysis Performed At Patho logist Time Signature WBC 6.8 4.0 - 9.5 [facility] x10(3)/[facility] LABORATORY RBC 4.67 4.58 - [place] 5.54 [facility] x10(6)/[facility] LABORATORY Hemoglobin 14.0 13.7 - [facility] gm/dL [facility] LABORATORY Hematocrit 41.0 40.5 - [facility] 48.5 % [facility] LABORATORY MCV 87.8 82.9 - [facility] 93.1 [facility] LABORATORY MCH 30.0 27.5 - [place] 32.1 pg [facility] LABORATORY MCHC 34.1 32.0 - [facility] 35.7 gm/dL [facility] LABORATORY Platelets 197 145 - 357 [facility] x10(3)/[facility] LABORATORY RDWSD 46.4 (H) 36.0 - [place] 45.0 [facility] LABORATORY RDWCV 14.5 (H) 11.4 - [facility] SU 13.8 % [facility] LABORATORY MPV 9.7 7.6 - 12.9 [facility] LABORATORY nRBC % Auto 0.0 % [facility] nRBC Abs Auto 0.000 0.000 - [place] 0.000 [facility] x10(3)/[facility] LABORATORY Specimen Anatomical Collection Method Collection Time Receive d Time (Source) Location / / Volume Laterality Blood specimen 07/05/2017 4:55 PM 017 5:24 (specimen) EST PM EST Resulting Agency Comment Spec In Lab Daphne Shahid MD HEMATOLOGY ORDERABLES Performing Organization Address City/State/ZIP [place] [address] (ABNORMAL) Cardiac Enzymes (LEB/CGP) (07/05/2017 4:55 PM EST) P athologist Signature Troponin-T 1.69 (H) 0.00 - [place] SU 0.00 ng/mL [facility] Comment: The 99th percentile for Troponin T is le ss than 0.01 ng/mL, any detectable cTnT concentration using this assay should be considered elevated. According to the third universal definit ion of myocardial infarction the following criteria with a clinical prese ntation consistent with acute myocardial ischemia meets the diagnosis for a myocardial infarction (MS). Detection of a rise and/or fall of [...] additional sample may be indicated. Reference: Third [place] Definition of Myocardial Infarction. Journal of the [place] College [employer]iology 2012;60:1581-98 CK, Total 191 0 - 200 unit/L [facility] Specimen Anatomical Collection Method Collection Time Receive d Time (Source) Location / / Volume Laterality Blood specimen 07/05/2017 4:55 PM 017 5:56 (specimen) EST PM EST Resulting Agency Comment Spec In Lab Daphne Shahid MD CHEMISTRY ORDERABLES Performing Organization Address City/[facility]/ZIP [place] [address] (ABNORMAL) pro-Brain Natriuretic Peptide (07/05/2017 4:55 PM EST) P athologist Signature ProBNP 1,598 (H) <=125 [facility] pg[facility]mL [facility] LABORATORY Specimen Anatomical Collection Method Collection Time Receive d Time (Source) Location / / Volume Laterality Blood specimen 07/05/2017 4:55 PM 017 5:24 (specimen) EST PM EST Resulting Agency Comment Spec In Lab Daphne Shahid MD CHEMISTRY ORDERABLES Performing Organization Address City/State/ZIP [place] [address] [facility] [address] Magnesium (07/05/2017 4:55 PM EST) athologist Signature Magnesium 0.78 0.69 - 1.07 [facility] mmol/L [facility] LABORATORY Specimen Anatomical Collection Method Collection Time Receive d Time (Source) Location / / Volume Laterality Blood specimen 07/05/2017 4:55 PM 017 5:24 (specimen) EST PM EST Resulting Agency Comment Spec In Lab Daphne Shahid MD CHEMISTRY ORDERABLES Performing Organization Address City/State/ZIP Code Phon e Number [address] (ABNORMAL) Basic Metabolic Panel (non-fasting) (07/05/2017 4:55 PM EST) athologist Signature Glucose Lvl 230 (H) 65 - 199 [facility] mg/dL [facility]OR[facility]ORY Comment: Diabetes: >=200 mg/dL plus symp toms BUN 19 10 - 20 mg/dL [facility] LABOR[facility]ORY Creatinine 1.04 0.80 - 1.50 mg/dL [facility] LABOR[facility]ORY Sodium 142 135 - 145 mmol/L [...] estions. Chloride 100 98 - 107 mmol/L [facility] CO2 28 22 - 31 mmol/L [facility] Anion Gap 14 5 - 15 mmol/L [facility] Calcium 8.5 8.5 - 10.5 mg/dL [facility] Estimated GFR >60 >=60 [facility] Comment: The reported eGFR should be multiplied b y 1.2 for patients. The MDRD is not an appropriate measure o f renal function for patients with body mass extremes or in patients with acute kidney failure. http://[employer]/DHnkdep http://[employer]com/DHMCnkf Specimen Anatomical Collection Method Collection Time Receive d Time (Source) Location / / Volume Laterality Blood specimen 07/05/2017 4:55 PM 017 5:24 (specimen) EST PM EST Resulting Agency Comment Spec In Lab Daphne Shahid MD CHEMISTRY ORDERABLES Performing Organization Address City/[facility]/ZIP Code Phon e Number [address] (ABNORMAL) APTT (07/05/2017 4:55 PM EST) P athologist Signature PTT 41 (H) 25 - 35 sec [facility] Comment: The recommended therapeutic range for fu ll dose, unfractionated heparin at [facility] is 80 ? 114 seconds. The use [...] Shahid MD HEMATOLOGY ORDERABLES Performing Organization Address City/[facility] [place] [address] (ABNORMAL) POCT Glucose (07/05/2017 4:53 PM EST) P athologist Signature POC Glucose 208 (H) 65 - 199 [facility] mg/dL [facility]ORY Comment: Supplemental ranges: <140 mg/dL before meals <180 mg/dL all other times of the day Specimen Anatomical Collection Method Collection Time Receive d Time (Source) Location / / Volume Laterality Blood specimen 07/05/2017 4:53 PM 017 4:53 (specimen) EST PM EST Daphne Shahid MD POINT OF CARE TEST ORDERABLE S Performing Organization Address City/[facility]/ZIP Code Phon [place] [address] EKG 12 Lead (07/05/2017 4:32 PM EST) Component Value Ref Range Test Analysis Performed Pathologis t Method Time At Signature Ventricular rate 97 BPM MUSE SYSTEM Atrial Rate 97 BPM MUSE SYSTEM P-R Interval 148 ms MUSE SYSTEM QRS Duration 96 ms MUSE SYSTEM Q-T Interval 364 ms MUSE SYSTEM QTC Calculated 462 ms MUSE SYSTEM (Bezet) Calculated P [place] 48 degrees MUSE SYSTEM Calculated R [place] -33 degrees MUSE SYSTEM Calculated T [place] 98 degrees MUSE SYSTEM INTERPRETATION Normal sinus [...] Coronary atherosclerosis of unspecified type of vessel, gakona or graft Cardiomyopathy, ischemic Other specified forms [...] post-op day 1 in the AM Give WA if unable to take PO, Routine Given [...] in dextrose 5% 250 mL EST infusion (NETWORK CABLE INSTALLER) CONTINUOUS PRN, Starting on Wed07/05/17 at 1837, [...] post-op day 1 in the AM Give WA if unable to take PO, Routine atorvastatin [...] Em Jones RN) 0922 (Given - Provider: Mryna Young RN) 40 mg, Oral, DAILY, First [...] 40 mEq (COMPLETED) 08 (Given - Provider: mE Jones RN) 40 mEq, Oral, ONCE, 1 [...] mg, Intravenous, EVERY 8 HOURS PRN, [facility] Wed07/07/17 at 1839, Until Wed07/14/17 at 1639, [...] post-op day 1 in the AM Give WA if unable to take PO
Routine Group [...]
Routine documented in this encounter Care Teams Heading Maker Relationship Specialty Start Date End Date Lovely Vicente MD PCP - General 04/16/[address] [place] [address] documented as of this encounter
--- OUTSIDE RECORDS SUMMARY | 2022-02-13 11:20 | XMS_ITS | Encounter Summary ---
:1945 Author Organization [facility] [place] [address] Care Team Providers Name Role Phone Lovely Vicente MD Primary Care Provider Reason for Visit Reason Comments Nevus excision dysplastic nevus mi d upper abdomen Encounter Details Date Type Department Care Team Description 12/03/2016 Procedure visit Dermatology at [facility]ois Dysplastic nevus of Road MD Adrián trunk [address] [facility] [address] [facility] [phone] [address]-DERMATOLGY [place] [address] Social History Tobacco Use Types Packs/Day Years [...] Halima Cordero MD during the day at [phone] Nurse: Mira [phone] Amy After 5 PM and on weekends, please call the hospital number , and ask for the Restrike Hammer Operator operation shift supervisor. documented in this encounter Progress Notes Halima Cordero MD - 12/10/2016 5:41 PM EDT Gwendolyn, Excision shows scar, there is no residual of the severely dysplastic nevus. Please notify patient and check on wound healing. Thank you, DTB Halima Cordero MD - 12/03/2016 3:00 PM EDT Images from the original note were not included. Dermatology Procedure note: Attending: Halima Cordero MD Pricing Analyst: Mira James LPN Referring MD: Rigoberto Garcia [...] to call the clinic or the on-call weigher and charger over the weekend. ??? Name of Procedure? [...] Office Visit Cardiology Liz Poole PA [facility] er Cardiology [place], [place] [address] (Wo rk) 03/26/2022 Office Visit Cardiology Vitaliy Nobles MD [facility] ER CARDIOLOGY [place], [place] [address] (Wo rk) documented as of this encounter [...] Component Value Ref Test Analysis Performed At [facility] Range Method Time Signature Surgical [id number] ?Location: [facility] Pathology SEGUIN Report The signing pathologist has (i) examined [...] Clinical Diagnosis: Dysplastic nevus, see previous pathology [id number] SPECIMEN PROCESSING A - Labeled/Fixative: Mid-upper abdomen, [...] MD PATHOLOGY/CYTOLOGY ORDERABLE S Performing Organization Address City/[facility]/[place] [address] Specimen to Pathology (NON-OR) (12/03/2016 3:31 PM EDT) Specimen Anatomical Collection Method Collection Time Receive d Time (Source) Location / / Volume Laterality AP Specimen 12/03/2016 3:31 PM 7 6:27 EDT PM EDT Narrative [facility] - 12/03/2016 6:27 PM EDT Specimen requisition ordered. ??Separate Pathology report to follow Resulting Agency Comment Spec In Lab Halima Cordero MD PATHOLOGY/CYTOLOGY ORDERABLE S Performing Organization Address City/[facility]/[place] [address] documented in this encounter Visit Diagnoses Diagnosis Dysplastic nevus of trunk Benign neoplasm of skin of trunk, except scrotum documented in this encounter Care Teams Hearing Screen Coordinator Relationship Specialty Start Date End Date Lovely Vicente MD PCP - General 04/16/[address] [place] [address] documented as of this encounter
--- OUTSIDE RECORDS SUMMARY | 2022-02-13 11:20 | XMS_ITS | Encounter Summary ---
:1945 Author Organization [facility] [place] [address] Care Team Providers Name Role Phone Lovely Vicente MD Primary Care Provider Reason for Visit Reason Comments Skin Check Encounter Details Date Type Department Care Team Description 04/16/2015 Follow-Up Dermatology at Rigoberto Forman x of melanoma of skin; Abdelrahman HOOPER MD Multiple benign nevi [address] [place] [address] [facility]DER[facility] [place], [place] [address] (Wo rk) Social History Tobacco [...] Diagnostic, Drum (ACCU-CHEK COMPACT TEST) Strip by [facility].(Non- Drug; Combo Route) route 2 times daily. [...] encounter. Rigoberto Garcia MD Section of Dermatology [facility] documented in this encounter Plan of Treatment Upcoming Encounters Date Type Specialty Care Team Description 02/19/2022 Laboratory Appointment Lab 02/19/2022 Office Visit Cardiology [facility] [place] [place] [address] (Wo rk) 03/26/2022 Office Visit Cardiology Vitaliy Nobles MD [facility] ER CARDIOLOGY [place], [place] [address] (Wo rk) documented as of this encounter Visit Diagnoses Diagnosis Hx of melanoma of skin Personal history of malignant melanoma o f skin Multiple benign nevi Benign neoplasm of skin, site unspecifie d documented in this encounter Care Teams Aircraft Powertrain Repairer Relationship Specialty Start Date End Date Lovely Vicente MD PCP - General 04/16/[address] [place] [address] documented as of this encounter
--- OUTSIDE RECORDS SUMMARY | 2022-02-13 11:20 | XMS_ITS | Encounter Summary ---
:1945 Author Organization [facility] [place] [address] Care Team Providers Name Role Phone Lovely Vicente MD Primary Care Provider Reason for Visit Reason Comments Medication Refill Encounter Details Date Type Department Care Team Description 05/10/2015 Refill Endocrinology at [facility] Rosalind Covarrubias, [facility] [place] [address] [facility] [phone] ENDOCRINOLOGY [place], [place] [address] (Mikayla alcaraz) Social History Tobacco Use Types [...] [facility] er Cardiology Dept [place], [place] [address] (Wo rk) 03/26/2022 Office Visit Cardiology Vitaliy Nobles MD [facility] ER CARDIOLOGY [place], [place] [address] (Wo rk) documented as of this encounter Visit Diagnoses Not on filedocumented in this encounter Care Teams Entry Level Civil Engineer Relationship Specialty Start Date End Date Lovely Vicente MD PCP - General 04/16/[address] [place] [address] [address] [facility] [place] [address] documented as of this encounter
--- OUTSIDE RECORDS SUMMARY | 2022-02-13 11:20 | XMS_ITS | Encounter Summary ---
:1945 Author Organization [facility] [place] [address] Care Team Providers Name Role Phone Lovely Vicente MD Primary Care Provider Reason for Visit Reason Onset Date Comments Pre Procedure Call 12/02/2016 Encounter Details Date Type Department Care Team Description 12/02/2016 Telephone Dermatology at [facility] Mira James LPN Pre Procedure Call [address] [place] [address] Social History Tobacco Use Types Packs/Day [...] he has further questions or concerns Mira James LPN documented in this encounter Plan of Treatment Upcoming Encounters Date Type Specialty Care Team Description 02/19/2022 Laboratory Appointment Lab 02/19/2022 Office Visit Cardiology Liz Poole PA [facility] Cardiology [place], [place] [address] (Wo rk) 03/26/2022 Office Visit Cardiology Vitaliy Nobles MD [facility] CARDIOLOGY [place], [place] [address] (Wo rk) documented as of this encounter Visit Diagnoses Not on filedocumented in this encounter Care Teams On Site Manager Relationship Specialty Start Date End Date Lovely Vicente MD PCP - General 04/16/[address] [place] [address] documented as of this encounter
--- OUTSIDE RECORDS SUMMARY | 2022-02-13 11:20 | XMS_ITS | Encounter Summary ---
:1945 Author Organization [facility] [address] Care Team Providers Name Role Phone Lovely Vicente MD Primary Care Provider Encounter Details Date Type Department Care Team Description 11/28/2016 Telephone Dermatology at [facility] Rigoberto Garcia III, [address] [place] [address] [facility] [phone] [facility]-DERMAT [place], [place] [address] (Wo rk) Social History Tobacco [...] provider. Rigoberto Garcia MD Section of Dermatology [facility] documented in this encounter Plan of Treatment Upcoming Encounters Date Type Specialty Care Team Description 02/19/2022 Laboratory Appointment Lab 02/19/2022 Office Visit Cardiology Liz Poole PA [facility] Cardiology [place], [place] [address] (Wo rk) 03/26/2022 Office Visit Cardiology Vitaliy Nobles MD [facility] CARDIOLOGY [place], [place] [address] (Wo rk) documented as of this encounter Visit Diagnoses Not on filedocumented in this encounter Care Teams Conditioner Tumbler Operator Relationship Specialty Start Date End Date Lovely Vicente MD PCP - General 04/16/[address] [place] [address] documented as of this encounter
--- OUTSIDE RECORDS SUMMARY | 2022-02-13 11:20 | XMS_ITS | Encounter Summary ---
:1945 Author Organization [facility] [place] [address] Care Team Providers Name Role Phone MiyaAngela STACIE Primary Care Provider Encounter Details Date Type Department Care Team Description 04/26/2014 Office Visit Endocrinology at [facility] Albertina Palmer, Papillary thyroid [facility] [place] [address] CENTER [phone] ENDOCRINOLOGY DEPT [place] [address] Social History Tobacco Use Types Packs/Day Years [...] on [place]. Rosalind Palmer Endocrine Staff Physician [facility] Rosalind Palmer MD - 04/26/2014 8:39 AM [...] one yr Rosalind Palmer Endocrine Staff Physician [facility] documented in this encounter Plan of Treatment Upcoming Encounters Date Type Specialty Care Team Description 02/19/2022 Laboratory Appointment Lab 02/19/2022 Office Visit Cardiology Liz Poole PA [facility] Cardiology Dept [place], [place] [address] (Wo rk) 03/26/2022 Office Visit Cardiology Vitaliy Nobles MD [facility] CARDIOLOGY [place], [place] [address] (Wo rk) documented as of [...] athologist Signature Thyroglobulin <0.4 <=54.9 CERNER ng/mL [facility] Comment: Interpret with caution. Tg levels may [...] BR et al. J Clin Endo Metab 1999;84:7329-4710). Assay performed using the DPC Immulite T [...] Organization Address City/State/[place] [address] CERNER MILLENNIUM (ABNORMAL) TSH [...] Organization Address City/State/[place] [address] RAKESH WALKER documented in this encounter Visit Diagnoses Diagnosis Papillary thyroid carcinoma Malignant neoplasm of thyroid gland documented in this encounter Care Teams Leadership Development Instructor Relationship Specialty Start Date End Date Angela Holliday APRN PCP - General 01/25/13 04/15/[address] [place] [address] documented as of this encounter
--- OUTSIDE RECORDS SUMMARY | 2022-02-13 11:20 | XMS_ITS | Encounter Summary ---
:1945 Author Organization [facility] [place] [address] Care Team Providers Name Role Phone MiyaAngela STACIE Primary Care Provider Reason for Visit Reason Comments Post Op voiding trial Encounter Details Date Type Department Care Team Description 04/05/2013 Office Visit [place]rology [place] [facility] Darryl Egan, UTI ([facility] MD tract infection) [facility] (Primary Dx) [place] [address] UROLOGY DEPT [phone] [place], [place] [address] Social History Tobacco Use Types [...] [facility] Dept [place], [place] [address] (Wo rk) 03/26/2022 Office Visit Cardiology Vitaliy Nobles MD [facility] ER CARDIOLOGY [place], [place] [address] (Wo rk) documented as of this encounter Procedures Procedure Name Priority Date/Time Associated Diagnosis Comme nts URINE CULTURE Routine 04/05/2013 11:48 AM UTI (lower urinary R esults for this EDT tract infection) procedure a re in the results section . documented in this encounter Results Urine culture Clean Catch Urine (04/05/2013 11:48 AM EDT) Component Value Ref Test Analysis Performed At [facility] Method Time Signature Urine Culture CERNER ? Patient Name: DON HOANG ? Ordered By: DARRYL EGAN [facility] ? MR#: [id number] ?LOC: ??5B ? /Sex: ??1945 (68 years), [...] S ? Patient: DON HOANG ? MR#: [id number] ? FOOTNOTES ? (1) ? This organism [...] Organization Address City/State/[place] [address] [facility] documented in this encounter Visit Diagnoses Diagnosis UTI (lower urinary tract infection) - Pr imary Urinary tract infection, site not specif ied documented in this encounter Care Teams Trauma Director Relationship Specialty Start Date End Date Angela Holliday APRN PCP - General 01/25/13 04/15/[address] [place] [address] documented as of this encounter
--- OUTSIDE RECORDS SUMMARY | 2022-02-13 11:20 | XMS_ITS | Encounter Summary ---
:1945 Author Organization [facility] [address] Care Team Providers Name Role Phone Angela Holliday APRN Primary Care Provider Reason for Visit Reason Onset Date Comments Other 03/30/2013 blood in catheter ba g Encounter Details Date Type Department Care Team Description 03/30/2013 Telephone General Surgery at [facility] Janneth Sharma, Other (blood in [facility] RN catheter bag) [place] [address] Social History Tobacco Use Types Packs/Day Years Used Date Former Smoker Alcohol Use Standard Drinks/Week Comments No 0 (1 standard drink = 0.6 oz pure alcoho l) Sex Assigned at Date Recorded Not on file documented as of this encounter Miscellaneous Notes Telephone Encounter - aJnneth Sharma, RN - 03/30/2013 1:52 PM EDT [...] Liz Poole PA [facility] Cardiology Dept [place], [place] [address] (Wo rk) 03/26/2022 Office Visit Cardiology Vitaliy Nobles MD [facility] CARDIOLOGY [place], [place] [address] (Wo rk) documented as of this encounter Visit Diagnoses Not on filedocumented in this encounter Care Teams Dental Insurance Biller Relationship Specialty Start Date End Date Angela Holliday APRN PCP - General 01/25/13 04/15/[address] [place] [address] documented as of this encounter
--- OUTSIDE RECORDS SUMMARY | 2022-02-13 11:20 | XMS_ITS | Encounter Summary ---
:1945 Author Organization [facility] Address [facility] [place] [address] Care Team Providers Name Role Phone Lovely Vicente MD Primary Care Provider Reason for Visit Reason Comments Skin Check Encounter Details Date Type Department Care Team Description 11/05/2015 Office Visit Dermatology at Rigoberto Forman benign nevi; Abdelrahman HOOPER MD Lentigines; [address] [facility] History of melanoma; [place] [address] Skin exam for malignant neoplasm [phone] [facility] [place], [place] [address] Social History Tobacco Use Types [...] Diagnostic, Drum (ACCU-CHEK COMPACT TEST) Strip by [facility].(Non- Drug; Combo Route) route 2 times daily. [...] encounter. Rigoberto Garcia MD Section of Dermatology [facility] documented in this encounter Plan of Treatment Upcoming Encounters Date Type Specialty Care Team Description 02/19/2022 Laboratory Appointment Lab 02/19/2022 Office Visit Cardiology Liz Poole PA [facility] Cardiology [place], [place] [address] (Wo rk) 03/26/2022 Office Visit Cardiology Vitaliy Nobles MD [facility] CARDIOLOGY [place], [place] [address] (Wo rk) documented as of this encounter Visit Diagnoses Diagnosis Multiple benign nevi Benign neoplasm of skin, site unspecifie d Lentigines Other dyschromia History of melanoma Personal history of malignant melanoma o f skin Skin exam for malignant neoplasm Screening for malignant neoplasm of the skin documented in this encounter Care Teams Machine Pecan Gatherer Relationship Specialty Start Date End Date Lovely Vicente MD PCP - General 04/16/[address] [place] [address] [address] [place] [address] documented as of this encounter
--- OUTSIDE RECORDS SUMMARY | 2022-02-13 11:20 | XMS_ITS | Encounter Summary ---
:1945 Author Organization [facility] [place] [address] Care Team Providers Name Role Phone Lovely Vicente MD Primary Care Provider Reason for Visit Reason Comments Thyroid Cancer Encounter Details Date Type Department Care Team Description 06/05/2015 Office Visit Endocrinology at [facility] Albertina Prescott, History of papillary [facility] MD Luz adenocarcinoma of [facility] thyroid (Primary Dx) [place] [address] CENTER [phone] [place] [address] Social History Tobacco Use Types Packs/Day Years [...] the thyroid gland were obtained using a [employer] ultrasound machine. All measurements are given as AP x Transverse x Longitudinal Right Lobe: Absent Left Lobe: Absent Isthmus: Absent Central/Lateral neck: no morphologically abnormal lymph nodes. Impression: No sonographic evidence of recurrence. LUZ PRESCOTT MD Ironing Machine Operatormarketing area manager Section of Endocrinology [facility] Luz Prescott MD - 06/05/2015 8:21 AM [...] Diagnostic, Drum (ACCU-CHEK COMPACT TEST) Strip by [facility].(Non-Drug; Combo Route) route 2 [...] --f/u in 1 year LUZ PRESCOTT MD Ironing Machine Operatormarketing area manager Section of Endocrinology [facility] documented in this encounter Miscellaneous Notes Addendum [...] Poole PA [facility] Cardiology Dept [place], [place] [address] (Wo rk) 03/26/2022 Office Visit Cardiology Vitaliy Nobles MD [facility] ER CARDIOLOGY [place], [place] [address] (Wo rk) documented as [...] athologist Signature Thyroglobulin 0.6 <=54.9 CERNER ng/mL [facility] Comment: Interpret with caution. Tg levels [...] BR et al. J Clin Endo Metab 1999;84:0843-8687). Assay performed using the DPC Immulite T [...] Organization Address City/State/ZIP [place] [address] CERNER MILLENNIUM (ABNORMAL) TSH (06/05/2015 9:04 AM EST) P athologist Signature TSH 5.88 (H) 0.27 - 4.20 CERNER mcIU/mL MILLENNIUM Specimen Anatomical Collection Method Collection Time Receive d Time (Source) Location / / Volume Laterality Blood specimen 06/05/2015 9:04 AM 015 9:15 (specimen) EST AM EST Resulting Agency Comment Spec In Lab Luz Prescott MD CHEMISTRY ORDERABLES Performing Organization Address City/[facility]/ZIP [place] [address] CERNER MILLENNIUM documented in this encounter Visit Diagnoses Diagnosis 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
--- OUTSIDE RECORDS SUMMARY | 2022-02-13 11:20 | XMS_ITS | Encounter Summary ---
:1945 Author Organization [facility] [place] [address] Care Team Providers Name Role Phone Lovely Vicente MD Primary Care Provider Reason for Visit Reason Comments Skin Lesion Encounter Details Date Type Department Care Team Description 11/24/2016 [facility]oplasm of uncertain behavior of skin; Road IIIMD Pigmented skin lesion of uncertain natur e; [address] [facility] [place] of [place] [address] [facility] [place], [place] [address] Social History Tobacco Use Types [...] or concerns, please call the office at [phone]. If it is after 5PM, or a holiday or weekend, please call [phone] and ask for the Accounts Receivable Coordinator on-call. documented in this encounter Progress Notes [...] 71 y.o. year old male.Established patient of [employer]. Last seen 06/05/16. Here today for new [...] encounter. Rigoberto Garcia MD Section of Dermatology [facility] documented in this encounter Plan of Treatment Upcoming Encounters Date Type Specialty Care Team Description 02/19/2022 Laboratory Appointment Lab 02/19/2022 Office Visit Cardiology Liz Poole PA [facility] Medical [facility] er Cardiology Dept [place], [place] [address] (Mikayla alcaraz) 03/26/2022 Office Visit Cardiology Vitaliy Nobles MD [facility] CARDIOLOGY [place], [place] [address] (Mikayla alcaraz) documented as of [...] Component Value Ref Test Analysis Performed At [facility] Range Method Time Signature Surgical [id number] ?Location: [facility] Report The signing pathologist has (i) [...] Organization Address City/State/[place] [address] Specimen to Pathology (NON-OR) (11/24/2016 8:28 AM EDT) Specimen Anatomical Collection Method Collection Time Receive d Time (Source) Location / / Volume Laterality AP Specimen 11/24/2016 8:28 AM 7 9:29 EDT AM EDT Narrative [facility] - 11/24/2016 9:29 AM EDT Specimen requisition ordered. ??Separate Pathology report to follow Resulting Agency Comment Spec In Lab Rigoberto Garcia III, MD PATHOLOGY/CYTOLOGY ORDERABLE S Performing Organization Address City/State/ZIP Code Phon e Number [place] [id number] documented in this encounter Visit Diagnoses Diagnosis Neoplasm of uncertain behavior of skin Pigmented skin lesion of uncertain natur e History of melanoma Personal history of malignant melanoma o f skin documented in this encounter Care Teams Management Technician Relationship Specialty Start Date End Date Lovely Vicente MD PCP - General 04/16/[address] [facility] [address] [place] [address] documented as of this encounter
--- OUTSIDE RECORDS SUMMARY | 2022-02-13 11:20 | XMS_ITS | Encounter Summary ---
:1945 Author Organization [facility] [place] [address] Care Team Providers Name Role Phone Lovely Vicente MD Primary Care Provider Encounter Details Date Type Department Care Team Description 07/05/2017 Telephone Cardiology Kim Galindo MD [facility] [place] [address] CARDIOLOGY DEPT [phone] [place], [place] [address] (Wo rk) Social History Tobacco [...] 1:54pm Referring Provider: Ivania CROWELL) Patient Location: [facility] Presenting Symptoms per OSH: 72 year old [...] infarct and elevated troponin, transport patient to [facility] for cath this afternoon and arrhythmia monitoring. Kim Galindo MD Director Of Digital Marketing documented in this encounter Plan of Treatment Upcoming Encounters Date Type Specialty Care Team Description 02/19/2022 Laboratory Appointment Lab 02/19/2022 Office Visit Cardiology Liz Poole PA [facility] er Cardiology Dept [place], [place] [address] (Wo rk) 03/26/2022 Office Visit Cardiology Vitaliy Nobles MD [facility] ER CARDIOLOGY [place], [place] [address] (Wo rk) documented as of this encounter Visit Diagnoses Not on filedocumented in this encounter Care Teams Loadmaster Relationship Specialty Start Date End Date Lovely Vicente MD PCP - General 04/16/15 [facility] [address] [place] [address] documented as of this encounter
--- OUTSIDE RECORDS SUMMARY | 2022-02-13 11:20 | XMS_ITS | Encounter Summary ---
:1945 Author Organization [facility] [place] [address] Care Team Providers Name Role Phone Angela Holliday APRN Primary Care Provider Reason for Visit Reason Comments Skin Check Encounter Details Date Type Department Care Team Description 07/31/2013 Follow-Up Dermatology at Rig[facility]to Forman eoplasm of unspecified nature of bone, soft tissue, and skin (Primary Dx); Abdelrahman HOOPER MD Seborrheic psoriasis- scalp and ingtergl uteal area; [address] [facility] Atypical nevus [place] [address] [facility] [place], [place] [address] (Wo rk) Social History Tobacco [...] Poole PA [facility] Cardiology [place], [place] [address] (Wo rk) 03/26/2022 Office Visit Cardiology Vitaliy Nobles MD [facility] CARDIOLOGY [place], [place] [address] (Wo rk) Scheduled Orders Name [...] [facility] gist Range Method Time Signature Surgical CERNER Pathology ? [facility] Report ? Provider: ?? DEION III, RIGOBERTO Pt. Name: ?? GREGORY HOANG ?A ? Acc #: ?[id number] ? Pt. ? Col Date: ?? 07/31/2013 [...] 0.9 x 0.8 x 0.2 cm. ? [facility] ? Provider: ?? JUSTINL III, RIGOBERTO Pt. Name: ?? GREGORY HOANG ?A ? Acc #: ?[id number] ? Pt. ? Col Date: ?? 07/31/2013 [...] MD PATHOLOGY/CYTOLOGY ORDERABLE S Performing Organization Address City/[facility]/[place] [address] CERNER MILLENNIUM Specimen to [...] MD PATHOLOGY/CYTOLOGY ORDERABLE S Performing Organization Address City/[facility] [place] [address] CERNER MILLENNIUM documented in this encounter Visit Diagnoses Diagnosis Neoplasm of unspecified nature of bone, soft tissue, and skin - Primary Seborrheic psoriasis- scalp and ingtergl uteal area Other psoriasis Atypical nevus of abdominal wall Benign neoplasm of skin of trunk, except scrotum documented in this encounter Care Teams Compliance Administrator Relationship Specialty Start Date End Date Angela Holliday APRN PCP - General 01/25/13 04/15/[address] [place] [address] documented as of this encounter
--- OUTSIDE RECORDS SUMMARY | 2022-02-13 11:20 | XMS_ITS | Encounter Summary ---
:1945 Author Organization [facility] [place] [address] Care Team Providers Name Role Phone Angela Holliday APRN Primary Care Provider Encounter Details Date Type Department Care Team Description 03/30/2013 Telephone General [facility] Cliff Nevarez, [place] [address] Social History Tobacco Use Types Packs/Day [...] PA [facility] Cardiology Dept [place], [place] [address] (Wo rk) 03/26/2022 Office Visit Cardiology Vitaliy Nobles MD [facility] CARDIOLOGY [place], [place] [address] (Wo rk) documented as of this encounter Visit Diagnoses Not on filedocumented in this encounter Care Teams Channel Marketing Specialist Relationship Specialty Start Date End Date Angela Holliday APRN PCP - General 01/25/13 04/15/[address] [place] [address] documented as of this encounter
--- OUTSIDE RECORDS SUMMARY | 2022-02-13 11:20 | XMS_ITS | Encounter Summary ---
:1945 Author Organization [facility] [place] [address] Care Team Providers Name Role Phone Lovely Vicente MD Primary Care Provider Encounter Details Date Type Department Care Team Description 07/10/2016 Telephone Dermatology at [facility] Rigoberto White III, [address] [place] [address] [facility] [phone] [facility] MAR[facility]-DERMAT [place], [place] [address] (Wo rk) Social History Tobacco [...] [facility] [place] [address] (Wo rk) 03/26/2022 Office Visit Cardiology Vitaliy Nobles MD [facility] ER CARDIOLOGY [place], [place] [address] (Wo rk) documented as of this encounter Visit Diagnoses Not on filedocumented in this encounter Care Teams Director Of Institutional Research Relationship Specialty Start Date End Date Lovely Vicente MD PCP - General 04/16/[address] [place] [address] documented as of this encounter
--- OUTSIDE RECORDS SUMMARY | 2022-02-13 11:20 | XMS_ITS | Encounter Summary ---
:1945 Author Organization [facility] [place] [address] Care Team Providers Name Role Phone Som Holliday APRN Primary Care Provider Encounter Details Date Type Department Care Team Description 04/11/2014 Procedure visit Gastroenterology at [facility] Esophageal reflux [facility] Luz Winchester RN (Primary Dx) [place] [address] Social History Tobacco Use Types Packs/Day Years Used Date Former Smoker Alcohol Use Standard Drinks/Week Comments No 0 (1 standard drink = 0.6 oz pure alcoho l) Sex Assigned at Date Recorded Not on file documented as of this encounter Progress Notes Adalid Can MD - 04/13/2014 3:43 PM EDT ESOPHAGEAL MANOMETRY Don Fatima Male, 69 yrs, 1945 PCP: SOM HOLLIDAY CROP CONSULTANT: NONE STUDY DATE: 04/11/14 PROVIDER: Adalid Can, PhD, [place] ([id number]) INDICATION Reflux; preoperative evaluation. METHODS Stationary esophageal manometry was performed with the [employer] esophageal motility system utilizing the Polygram software [...] of the esophagus. Adalid Can, PhD, MD sample tester, [facility] [employer] Section of Gastroenterology and [place]at[place] [address] V: [phone] F: [phone] BANNER/gabriela CC/EC: PCP - staff msg copy 04/13/14 Henrique Taylor MD - fax copy 04/13/14 Luz Keller RN - 04/11/2014 8:14 AM EDT Esophageal manometry performed without difficulty and Was well tolerated. documented in this encounter Plan of Treatment Upcoming Encounters Date Type Specialty Care Team Description 02/19/2022 Laboratory Appointment Lab 02/19/2022 Office Visit Cardiology Liz Poole PA [facility] Medical [facility] er Cardiology Dept [place], [place] [address] (Wo rk) 03/26/2022 Office Visit Cardiology Vitaliy Nobles MD [facility] CARDIOLOGY [place], [place] [address] (Wo rk) documented as of this encounter Visit Diagnoses Diagnosis Esophageal reflux - Primary documented in this encounter Care Teams Wood Model Maker Relationship Specialty Start Date End Date Som Holliday APRN PCP - General 01/25/13 04/15/[address] [place] [address] documented as of this encounter
--- OUTSIDE RECORDS SUMMARY | 2022-02-13 11:20 | XMS_ITS | Encounter Summary ---
:1945 Author Organization [facility] [place] [address] Care Team Providers Name Role Phone Lovely Vicente MD Primary Care Provider Reason for Visit Reason Onset Date Comments Medication Refill 06/19/2016 Encounter Details Date Type Department Care Team Description 06/19/2016 Refill Endocrinology at [facility] Luz Stallings [place] [address] ENDOCRINOLOGY DEPT [phone] [place], [place] [address] (Wo rk) Social History Tobacco [...] [facility] er Cardiology Dept [place], [place] [address] (Wo rk) 03/26/2022 Office Visit Cardiology Vitaliy Nobles MD [facility] ER CARDIOLOGY [place], [place] [address] (Wo rk) documented as of this encounter Visit Diagnoses Not on filedocumented in this encounter Care Teams Laundry Worker Relationship Specialty Start Date End Date Lovely Vicente MD PCP - General 04/16/[address] [place] [address] documented as of this encounter
--- OUTSIDE RECORDS SUMMARY | 2022-02-13 11:21 | XMS_ITS | Encounter Summary ---
:1945 Author Organization [facility] [place] [address] Care Team Providers Name Role Phone Unknown Primary Care Provider Unavailable Reason for Visit Reason Comments Other Encounter Details Date Type Department Care Team Description 10/05/2012 Telephone Dermatology at [facility] Rigoberto Garcia III, [address] [place] [address] [facility] [phone] [place] MARIE-DERMAT [place] [id number] (Wo rk) Social History Tobacco Use Types [...] [facility] [place], [place] [address] (Wo rk) 03/26/2022 Office Visit Cardiology Vitaliy Nobles MD [facility] ER CARDIOLOGY [place], [place] [address] (Wo rk) documented as of this encounter Visit Diagnoses Not on filedocumented in this encounter Care Teams Sales Development Executive Relationship Specialty Start Date End Date Unknown PCP - General 10/04/12 01/24/13 None documented as of this encounter
--- OUTSIDE RECORDS SUMMARY | 2022-02-13 11:21 | XMS_ITS | Encounter Summary ---
:1945 Author Organization [facility] [place] [address] Care Team Providers Name Role Phone Brody Berrios MD Primary Care Provider Reason for Visit Reason Comments Annual Exam Encounter Details Date Type Department Care Team Description 09/22/2011 Follow-Up Dermatology Arik Tipton Psoriasis (Primary Dx); [facility] MD Jorge Personal history of other malignant neop lasm of skin Drive [place] [phone] DERMATOLOGY DEPT . 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 His only complaints tail bone and scalp [...] changes: Arik Tipton MD Section of Dermatology [facility] documented in this encounter Plan of Treatment Upcoming Encounters Date Type Specialty Care Team Description 02/19/2022 Laboratory Appointment Lab 02/19/2022 Office Visit Cardiology Liz Poole PA [facility] Cardiology Dept [place], [place] [address] (Wo rk) 03/26/2022 Office Visit Cardiology Vitaliy Nobles MD [facility] CARDIOLOGY [place], [place] [address] (Wo rk) documented as of this encounter Visit Diagnoses Diagnosis Psoriasis - Primary Other psoriasis Personal history of other malignant neop lasm of skin documented in this encounter Care Teams Insulation Nozzleman Relationship Specialty Start Date End Date Brody Berrios MD PCP - General 09/22/11 10/03/[address] [place] [address] [address] [place] [address] documented as of this encounter
--- OUTSIDE RECORDS SUMMARY | 2022-02-13 11:21 | XMS_ITS | Encounter Summary ---
:1945 Author Organization [facility] [place] [address] Care Team Providers Name Role Phone Angela Holliday APRN Primary Care Provider Encounter Details Date Type Department Care Team Description 01/25/2013 Clinical Support [place] [address] Social History Tobacco Use Types Packs/Day [...] PA [facility] Cardiology Dept [place], [place] [address] (Wo rk) 03/26/2022 Office Visit Cardiology Vitaliy Nobles MD [facility] CARDIOLOGY [place], [place] [address] (Wo rk) documented as of this encounter Visit Diagnoses Not on filedocumented in this encounter Care Teams Tube And Manifold Builder Relationship Specialty Start Date End Date Angela Holliday APRN PCP - General 01/25/13 04/15/[address] [place] [address] documented as of this encounter
--- OUTSIDE RECORDS SUMMARY | 2022-02-13 11:21 | XMS_ITS | Encounter Summary ---
:1945 Author Organization [facility] [place] [address] Care Team Providers Name Role Phone Angela Holliday APRN Primary Care Provider Encounter Details Date Type Department Care Team Description 03/28/2013 Surgery Main Operating Room Mesha Mcknight, THY[facility]ID[facility] [address] [place] [address] [place] [address] [phone] (Wo rk) Social History Tobacco Use Types [...] please call the General Surgery nurse at [phone], since this may mean that you need morecalcium. Follow-up Appointment: Will be scheduled with Dr. Mcknight in 6 weeks Date and time as well as any required labs will be mailed to you Please call [phone] to confirm date and time of your [...] by calcium supplementation. Phone number for questions: [phone] before 5 PM weekdays [phone] after 5 PM and on weekends/holidays Please follow up with Urology as per their recommendations for Bob removal AttachmentsThe following attachments cannot be sent through Care Everywhere. THYROIDECTOMY: WHAT TO EXPECT AT HOME (DIVEHI)URINARY CATHETER CARE: AFTER YOUR VISIT (DIVEHI)documented in this encounter Medications at Time of [...] is a 68 y.o. male presents to [facility] today for total thyroidectomy. See full Consult [...] Willams MD - 03/28/2013 3:43 PM EDT [facility] Operative Note Patient Name: Gregory Fatima : [id number] MR#: [id number] Case Date: 03/28/2013 Surgeon: Surgeon(s) and Role: [...] patient was extubated and taken to the [facility] in stable condition. At the end ofthe [...] Operative Note Patient Name: Gregory Fatima : [id number] MR#: [id number] Case Date: 03/28/2013 Surgeon: Surgeon(s) and Role: [...] Poole PA [facility] Cardiology Dept [place], [place] [address] (Wo rk) 03/26/2022 Office Visit Cardiology Vitaliy Nobles MD [facility] CARDIOLOGY [place], [place] [address] (Wo rk) documented as [...] Organization Address City/State/ZIP Code Phon e Number [address] CERNER MILLENNIUM (ABNORMAL) POCT [...] Organization Address City/State/[place] [address] CERNER MILLENNIUM (ABNORMAL) POCT [...] Organization Address City/State/[place] [address] CERNER MILLENNIUM (ABNORMAL) POCT [...] TEST ORDERABLE S Performing Organization Address City/[facility]/ZIP Code Phon e Number [address] CERNER MILLENNIUM (ABNORMAL) POCT [...] TEST ORDERABLE S Performing Organization Address City/[facility]/ZIP Code Phon e Number [address] CERNER MILLENNIUM (ABNORMAL) POCT [...] Organization Address City/State/[place] [address] CERNER MILLENNIUM (ABNORMAL) POCT [...] TEST ORDERABLE S Performing Organization Address City/[facility]/ZIP Code Phon e Number [address] CERNER MILLENNIUM (ABNORMAL) POCT [...] TEST ORDERABLE S Performing Organization Address City/[facility]/[place] [address] CERNER MILLENNIUM Specimen to Pathology (surgical or derm) (03/28/2013 12:14 PM EDT) Specimen Anatomical Collection Method Collection Time Receive d Time (Source) Location / / Volume Laterality AP Specimen 03/28/2013 12:14 03/28/2013 PM EDT 12:14 PM EDT Narrative [facility] - 03/28/2013 12:14 PM EDT Specimen requisition ordered. ??Separate Pathology report to follow Mesha Mcknight MD PATHOLOGY/CYTOLOGY ORDERABLE S Performing Organization Address City/State/[place] [address] [facility] Pathology Addendum Report (03/28/2013 12:03 PM EDT) Component Value Ref Test Analysis Performed At [facility] Range Method Time Signature Addendum [facility] Report ? [facility] ? Provider: ?? MESHA MCKNIGHT Pt. Name: ?? GREGORY FATIMA ? Acc #: ?[id number] ?Pt. MRN: ?[id number] ? Col Date: ?? 03/28/2013 ?/Sex: ?1945,(68 [...] MD PATHOLOGY/CYTOLOGY ORDERABLE S Performing Organization Address [facility]/[place] [address] [facility] Surgical Pathology Report (03/28/2013 12:03 PM EDT) Component Value Ref Test Analysis Performed At [facility] gist Range Method Time Signature Surgical [facility] Pathology ? [facility] Report ? Provider: ?? MESHA MCKNIGHT Pt. Name: ?? GREGORY FATIMA ? Acc #: ?[id number] ?Pt. MRN: ?[id number] ? Col Date: ?? 03/28/2013 ?/Sex: ?1945,(68 [...] areas of hemorrhage and ? calcifications. ? [facility] ? Provider: ?? MESHA MCKNIGHT Pt. Name: ?? NATALYA GREGORY E ? Acc #: ?[id number] ?Pt. MRN: ?[id number] ? Col Date: ?? 03/28/2013 ?/Sex: ?1945,(68 years),Male ? Rec Date: ?? 03/28/2013 ?LOC: ?[facility] ? SURGICAL PATHOLOGY ? SECTIONS/PROCESSING: Transplant Nurse sections are subm itted. (R6) ? B [...] Organization Address City/State/[place] [address] CERNER MILLENNIUM Frozen Section Report (03/28/2013 12:03 PM EDT) Component Value Ref Test Analysis Performed At [facility] Range Method Time Signature Frozen CERNER Section ? [facility] ? Provider: ?? MESHA MCKNIGHT Pt. Name: ?? GREGORY FATIMA ? Acc #: ?[id number] ?Pt. MRN: ?[id number] ? Col Date: ?? 03/28/2013 ?/Sex: ?1945,(68 years),Male ? Rec Date: ?? 03/28/2013 ?LOC: ?[facility] ? FROZEN SECTION REPORT ? ---Frozen Section Report--- ? Part A - Intraoperati ve gross consultation was performed. ??The case was ? discussed by phone with Dr. Mcknight, and no frozen ? section was performed. ? 03/31/13 ??Verified by: ??César STRANGE, Ruben Yusuf, Sowmya gist ? The [facility] gist whose electronic signature appears on [...] MD PATHOLOGY/CYTOLOGY ORDERABLE S Performing Organization Address City/[facility]/ZIP Code Phon e Number [address] [facility] MILLENNIUM POCT Glucose (03/28/2013 12:00 PM EDT) P athologist Signature POC Glucose 134 60 - 199 CERNER mg/dL [facility] Comment: Supplemental ranges: <110 mg/dL before meals <200 mg/dL all other times of the day Specimen Anatomical Collection Method Collection Time Receive d Time (Source) Location / / Volume Laterality Blood specimen 03/28/2013 12:00 3 (specimen) PM EDT 12:00 PM EDT Mesha Mcknight MD POINT OF CARE TEST ORDERABLE S Performing Organization Address [facility]/ZIP Code Phon e Number [place] [address] [facility] Specimen to Pathology (surgical or derm) (03/28/2013 11:58 AM EDT) Specimen Anatomical Collection Method Collection Time Receive d Time (Source) Location / / Volume Laterality AP Specimen 03/28/2013 11:58 03/28/2013 AM EDT 11:58 AM EDT [facility]ative [facility] 03/28/2013 11:58 AM EDT Specimen requisition ordered. ??Separate Pathology report to follow Mesha Mcknight MD PATHOLOGY/CYTOLOGY ORDERABLE S Performing Organization Address City/[facility]/ZIP [place] [address] [facility] Antibody screen (03/28/2013 9:37 AM EDT) Analysis Performed At Patho logist Time Signature Ab Screen Negative [facility] Interp [facility] Expires at [id number] [facility] 2358 on: MILLENNIUM Specimen Anatomical Collection Method Collection Time Receive d Time (Source) Location / / Volume Laterality Blood specimen 03/28/2013 9:37 AM 013 9:37 (specimen) EDT AM EDT Resulting Agency Comment Spec In Lab Mesha Mcknight MD BLOOD BANK ORDERABLES Performing Organization Address City/State/ZIP Code Phon e Number [address] CERNER MILLENNIUM ABO/Rh Typing [...] Organization Address City/State/ZIP Code Phon e Number [address] CERNER MILLENNIUM Differential, Automated [...] Organization Address City/State/[place] [address] CERNER MILLENNIUM (ABNORMAL) Basic [...] intervals supplied above were not validated at [facility]. Results from pediatri c patients should be [...] Organization Address City/State/[place] [address] CERNER MILLENNIUM (ABNORMAL) CBC [...] Organization Address City/State/[place] [address] CERNER MILLENNIUM POCT Glucose (03/28/2013 9:17 AM EDT) P athologist Signature POC Glucose 108 60 - 199 CERNER mg/dL [facility] Comment: Supplemental ranges: <110 mg/dL before meals <200 mg/dL all other times of the day Specimen Anatomical Collection Method Collection Time Receive d Time (Source) Location / / Volume Laterality Blood specimen 03/28/2013 9:17 AM 013 9:17 (specimen) EDT AM EDT Mehsa Mcknight MD POINT OF CARE TEST ORDERABLE S Performing Organization Address City/[facility]/ZIP Code Phon e Number [address] RAKESH CARVALHOIUM Specimen to [...] Organization Address City/State/[place] [address] CERNER [facility]DAENNIUM documented in [...] 20 mg (CANCELED) 1942 (Given - Provider: Kesah Gracia RN) 0900 (Given - Provider: Radha [...] Tessa Rice)1247 (Anesthesia Volume Adjustment - Provider: Tesas Rice) 1,000 mL, at 100 mL/hr, Intravenous, [...] override documented in this encounter Care Teams Shaping Machine Tender Relationship Specialty Start Date End Date Angela Holliday APRN PCP - General 01/25/13 04/15/15 [address] [place] [address] documented as of this encounter
--- OUTSIDE RECORDS SUMMARY | 2022-02-13 11:21 | XMS_ITS | Encounter Summary ---
:1945 Author Organization [facility] Address [address] [place] [address] Care Team Providers Name Role Phone Unknown Primary Care Provider Unavailable Reason for Visit Reason Comments Skin Check Encounter Details Date Type Department Care Team Description 10/04/2012 Follow-Up Dermatology at Rigoberot Forman soriasis (Primary Dx); Abdelrahman HOOPER MD Neoplasm of unspecified nature of bone, soft tissue, and skin; [address] [facility] Skin lesion of chest wall; [place] [address] Seborrheic psoriasis- scalp and ingtergl uteal area [phone] [facility] [place], [place] [address] (Wo rk) Social History Tobacco [...] changes: Rigoberto Albarran MD Section of Dermatology [facility] documented in this encounter Plan of Treatment Upcoming Encounters Date Type Specialty Care Team Description 02/19/2022 Laboratory Appointment Lab 02/19/2022 Office Visit Cardiology Liz Poole PA [facility] Cardiology Dept [place], [place] [address] (Wo rk) 03/26/2022 Office Visit Cardiology Vitaliy Nobles MD [facility] CARDIOLOGY [place], [place] [address] (Wo rk) documented as of [...] At [facility] Range Method Time Signature Surgical CERNER Pathology ? [facility] Report ? Provider: ?? RIGOBERTO ALBARRAN III Pt. Name: ?? DON HOANG ?A ? Acc #: ?[id number] ? Pt. ? Col Date: ?? 3 [...] MD PATHOLOGY/CYTOLOGY ORDERABLE S Performing Organization Address City/[facility]/ZIP [place] [address] CERNER MILLENNIUM Specimen to [...] MD PATHOLOGY/CYTOLOGY ORDERABLE S Performing Organization Address City/[facility]/ZIP [place] [address] CERNER MILLENNIUM documented in this encounter Visit Diagnoses Diagnosis Psoriasis - Primary Other psoriasis Neoplasm of unspecified nature of bone, soft tissue, and skin Skin lesion of chest wall Unspecified disorder of skin and subcuta neous tissue Seborrheic psoriasis- scalp and ingtergl uteal area Other psoriasis documented in this encounter Care Teams Javascript Front End Developer Relationship Specialty Start Date End Date Unknown PCP - General 10/04/12 01/24/13 None documented as of this encounter
--- OUTSIDE RECORDS SUMMARY | 2022-02-13 11:21 | XMS_ITS | Encounter Summary ---
:1945 Author Organization [facility] [address] Care Team Providers Name Role Phone Angela Holliday APRN Primary Care Provider Encounter Details Date Type Department Care Team Description 03/15/2013 Telephone General Surgery at [facility] Maddison Key, [place] [address] Social History Tobacco Use Types Packs/Day [...] Liz Poole PA [facility] Cardiology Dept [place], [place] [address] (Wo rk) 03/26/2022 Office Visit Cardiology Vitaliy Nobles MD [facility] CARDIOLOGY [place], [place] [address] (Wo rk) documented as of this encounter Visit Diagnoses Not on filedocumented in this encounter Care Teams Rotary Engraver Relationship Specialty Start Date End Date Angela Holliday APRN PCP - General 01/25/13 [address] [place] [address] documented as of this encounter
--- OUTSIDE RECORDS SUMMARY | 2022-02-13 11:21 | XMS_ITS | Encounter Summary ---
:1945 Author Organization [facility] [place] [address] Care Team Providers Name Role Phone NeilSom connre STACIE Primary Care Provider Reason for Visit Reason Comments Establish Care OBST GOITER Encounter Details Date Type Department Care Team Description 01/25/2013 Office Visit General Surgery at Manny Mcknight er colloid, toxic, [facility] MD Eliseo nodular (Primary Dx) [facility] [place] GENERAL SURGERY [id number] [place], [place] [id number] [phone] Social History Tobacco Use Types Packs/Day Years [...] the thyroid gland were obtained using a SonoSiMyCabb[employer] MicroMaxx and an HFL38/13-6 broadband linear array [...] on physical exam. ROS: No H/O asthma, [place], stroke, pulmonary embolus or phlebitis. Comprehensive review [...] agrees to proceed. Will sign in through [facility]. Consent is signed. Send copy to Dr. SOM HOLLIDAY APRN and Elijah Elias MD. documented in this encounter Plan of Treatment Upcoming Encounters Date Type Specialty Care Team Description 02/19/2022 Laboratory Appointment Lab 02/19/2022 Office Visit Cardiology Liz Poole PA [facility] er Cardiology Dept [place], [place] [address] (Wo rk) 03/26/2022 Office Visit Cardiology Vitaliy Nobles MD [facility] CARDIOLOGY [place], [place] [address] (Wo rk) documented as of [...] 406 ms MUSE SYSTEM (Bezet) Calculated P [place] 52 degrees MUSE SYSTEM Calculated R [place] 0 degrees MUSE SYSTEM Calculated T [place] 40 degrees MUSE SYSTEM INTERPRETATION Normal sinus [...] storm documented in this encounter Care Teams Wireless Sales Representative Relationship Specialty Start Date End Date Som Holliday APRN PCP - General 01/25/13 04/15/[address] [place] [address] documented as of this encounter
--- OUTSIDE RECORDS SUMMARY | 2022-02-13 11:21 | XMS_ITS | Encounter Summary ---
:1945 Author Organization [facility] [place] [address] Care Team Providers Name Role Phone Angela Holliday APRN Primary Care Provider Reason for Referral Surgical (Routine) - Closed Specialty Diagnoses / Procedures Referred By Contact Refer red To Contact General Surgery Diagnoses Elijah Villagomez MD Colacchio, Thomas A, MD [address] [place] [address] [place] [address] [place] [address] Phone: Fax: Referral ID Status Reason Start Date Expiration Date Visits V isits Requested Authorized [id number] Closed Specialty 01/25/2013 07/24/2013 1 1 Service Requested Reason for Visit Reason Comments Thyroid Problem Encounter Details Date Type Department Care Team Description 01/25/2013 Office Visit Endocrinology at [facility] Elijah Fuentes Goiter (Primary Dx) [facility] [address] [place] [address] [place] [address] [phone] Social History Tobacco Use Types Packs/Day Years [...] History 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 All other [...] the thyroid gland were obtained using a SonNuru Internationalaxx and an HFL38/13-6 broadband linear array transducer. [...] Poole PA [facility] [place]iology [place], [place] [address] (Wo rk) 03/26/2022 Office Visit Cardiology Vitaliy Nobles MD [facility] CARDIOLOGY [place], [place] [address] (Wo rk) Scheduled Referrals Name [...] EDT Resulting Agency Comment Spec In Lab lEijah Elias MD CHEMISTRY ORDERABLES Performing Organization Address City/State/[place] [address] [facility] documented in this encounter Visit Diagnoses Diagnosis Goiter - Primary Goiter, unspecified documented in this encounter Care Teams Yard Laborer Relationship Specialty Start Date End Date Angela Hollidya APRN PCP - General 01/25/13 04/15/[address] [place] [address] documented as of this encounter
--- OUTSIDE RECORDS SUMMARY | 2022-02-13 11:21 | XMS_ITS | Encounter Summary ---
:1945 [place] [address] Care Team Providers Name Role Phone Holley Hollidayica STACIE Primary Care Provider Encounter Details Date Type Department Care Team Description 03/28/2013 - [facility] Barbara Gomes MD Dx) [facility] [address] [place] [id number] [phone] Social History Tobacco Use Types Packs/Day Years [...] please call the General Surgery nurse at [phone], since this may mean that you need morecalcium. Follow-up Appointment: Will be scheduled with Dr. Mcknight in 6 weeks Date and time as well as any required labs will be mailed to you Please call [phone] to confirm date and time of your [...] by calcium supplementation. Phone number for questions: [phone] before 5 PM weekdays [phone] after 5 PM and on weekends/holidays Please follow up with Urology as per their recommendations for Bob removal AttachmentsThe following attachments cannot be sent through Care Everywhere. THYROIDECTOMY: WHAT TO EXPECT AT HOME (CENTRAL AFRICAN)URINARY CATHETER CARE: AFTER YOUR VISIT (CENTRAL AFRICAN)documented in this encounter Medications at Time of [...] is a 68 y.o. male presents to [facility] today for total thyroidectomy. See full [...] Willams MD - 03/28/2013 3:43 PM EDT [facility] Operative Note Patient Name: Gregory Fatima : [id number] MR#: [id number] Case Date: 03/28/2013 Surgeon: Surgeon(s) and Role: * Mesha Mcknight MD - Primary * Henrique Willams MD - Resident-Surgeon Chief Preoperative diagnosis: MNG Postoperative diagnosis: MNG Procedure(s): THYROIDECTOMY, TOTAL OR COMPLETE FACIAL NERVE MONITORING, SETUP General Estimated Blood Loss: 200cc Drains: 7 JANURAY drain out right neck. Disposition: awakened from [...] patient was extubated and taken to the [facility] in stable condition. At the end [...] Operative Note Patient Name: Gregory Fatima : [id number] MR#: [id number] Case Date: 03/28/2013 Surgeon: Surgeon(s) and Role: [...] Liz Poole PA [facility] Cardiology Dept [place], [place] [address] (Wo rk) 03/26/2022 Office Visit Cardiology Vitaliy Nobles MD [facility] CARDIOLOGY [place], [place] [address] (Wo rk) documented [...] Organization Address City/State/ZIP Code Phon e Number [address] CERNER MILLENNIUM (ABNORMAL) POCT [...] Organization Address City/State/[place] [address] CERNER MILLENNIUM (ABNORMAL) POCT [...] Organization Address City/State/[place] [address] CERNER MILLENNIUM (ABNORMAL) POCT [...] CARE TEST ORDERABLE S Performing Organization Address City/[facility]/ZIP Code Phon e Number [address] CERNER MILLENNIUM (ABNORMAL) POCT [...] CARE TEST ORDERABLE S Performing Organization Address City/[facility]/ZIP Code Phon e Number [address] CERNER MILLENNIUM (ABNORMAL) POCT [...] Organization Address City/State/[place] [address] CERNER MILLENNIUM (ABNORMAL) POCT [...] CARE TEST ORDERABLE S Performing Organization Address City/[facility]/ZIP Code Phon e Number [address] CERNER MILLENNIUM (ABNORMAL) POCT [...] CARE TEST ORDERABLE S Performing Organization Address City/[facility]/[place] [address] CERNER MILLENNIUM Specimen to Pathology (surgical or derm) (03/28/2013 12:14 PM EDT) Specimen Anatomical Collection Method Collection Time Receive d Time (Source) Location / / Volume Laterality AP Specimen 03/28/2013 12:14 03/28/2013 PM EDT 12:14 PM EDT Narrative [facility] - 03/28/2013 12:14 PM EDT Specimen requisition ordered. ??Separate Pathology report to follow Mesha Mcknight MD PATHOLOGY/CYTOLOGY ORDERABLE S Performing Organization Address City/State/[place] [address] [facility] Pathology Addendum Report (03/28/2013 12:03 PM EDT) Component Value Ref Test Analysis Performed At [facility] Range Method Time Signature Addendum [facility] ? [facility] ? Provider: ?? MESHA MCKNIGHT Pt. Name: ?? GREGORY FATIMA ? Acc #: ?[id number] ?Pt. MRN: ?[id number] ? Col Date: ?? 03/28/2013 ?/Sex: ?1945,(68 [...] MD PATHOLOGY/CYTOLOGY ORDERABLE S Performing Organization Address [facility]/[place] [address] [facility] Surgical Pathology Report (03/28/2013 12:03 PM EDT) Component Value Ref Test Analysis Performed At [facility] gist Range Method Time Signature Surgical [facility] Pathology ? [facility] Report ? Provider: ?? MESHA MCKNIGHT Pt. Name: ?? GREGORY FATIMA ? Acc #: ?[id number] ?Pt. MRN: ?[id number] ? Col Date: ?? 03/28/2013 ?/Sex: ?1945,(68 [...] areas of hemorrhage and ? calcifications. ? [facility] ? Provider: ?? MESHA MCKNIGHT Pt. Name: ?? NATALYA GREGORY E ? Acc #: ?[id number] ?Pt. MRN: ?[id number] ? Col Date: ?? 03/28/2013 ?/Sex: ?1945,(68 years),Male ? Rec Date: ?? 03/28/2013 ?LOC: ?[facility] ? SURGICAL PATHOLOGY ? SECTIONS/PROCESSING: Speedometer Inspector sections are subm itted. (R6) ? B [...] Organization Address City/State/[place] [address] CERNER MILLENNIUM Frozen Section Report (03/28/2013 12:03 PM EDT) Component Value Ref Test Analysis Performed At [facility] Range Method Time Signature Frozen CERNER Section ? [facility] Report ? Provider: ?? MESHA MCKNIGHT Pt. Name: ?? GREGORY FATIMA ? Acc #: ?[id number] ?Pt. MRN: ?[id number] ? Col Date: ?? 03/28/2013 ?/Sex: ?1945,(68 years),Male ? Rec Date: ?? 03/28/2013 ?LOC: ?[facility] ? FROZEN SECTION REPORT ? ---Frozen Section Report--- ? Part A - Intraoperati ve gross consultation was performed. ??The case was ? discussed by phone with Dr. Mcknight, and no frozen ? section was performed. ? 03/31/13 ??Verified by: ??César STRANGE, Ruben Yusuf, Sowmya gist ? The attending [facility] gist whose electronic signature appears on [...] PATHOLOGY/CYTOLOGY ORDERABLE S Performing Organization Address City/[facility]/ZIP Code Phon e Number [address] [facility] MILLENNIUM POCT Glucose (03/28/2013 12:00 PM EDT) P athologist Signature POC Glucose 134 60 - 199 CERNER mg/dL [facility] Comment: Supplemental ranges: <110 mg/dL before meals <200 mg/dL all other times of the day Specimen Anatomical Collection Method Collection Time Receive d Time (Source) Location / / Volume Laterality Blood specimen 03/28/2013 12:00 3 (specimen) PM EDT 12:00 PM EDT Mesha Mcknight MD POINT OF CARE TEST ORDERABLE S Performing Organization Address [facility]/ZIP Code Phon e Number [place]BAR[place] [address] [facility] Specimen to Pathology (surgical or derm) (03/28/2013 11:58 AM EDT) Specimen Anatomical Collection Method Collection Time Receive d Time (Source) Location / / Volume Laterality AP Specimen 03/28/2013 11:58 03/28/2013 AM EDT 11:58 AM EDT [facility]28/2013 11:58 AM EDT Specimen requisition ordered. ??Separate Pathology report to follow Mesha Mcknight MD PATHOLOGY/CYTOLOGY ORDERABLE S Performing Organization Address City/[facility]/ZIP [place] [address] [facility] Antibody screen (03/28/2013 9:37 AM EDT) Analysis Performed At Patho logist Time Signature Ab Screen Negative [facility] Interp [facility] Expires at [id number] [facility] [id number] on: MILLENNIUM Specimen Anatomical Collection Method Collection Time Receive d Time (Source) Location / / Volume Laterality Blood specimen 03/28/2013 9:37 AM 013 9:37 (specimen) EDT AM EDT Resulting Agency Comment Spec In Lab Mesha Mcknight MD BLOOD BANK ORDERABLES Performing Organization Address City/State/ZIP Code Phon e Number [address] CERNER MILLENNIUM ABO/Rh Typing [...] Organization Address City/State/ZIP Code Phon e Number [address] CERNER MILLENNIUM Differential, Automated [...] Organization Address City/State/[place] [address] CERNER MILLENNIUM (ABNORMAL) Basic [...] intervals supplied above were not validated at [facility]. Results from pediatri c patients should be [...] Organization Address City/State/[place] [address] CERNER MILLENNIUM (ABNORMAL) CBC [...] Organization Address City/State/[place] [address] CERNER MILLENNIUM POCT Glucose (03/28/2013 9:17 AM EDT) P athologist Signature POC Glucose 108 60 - 199 CERNER mg/dL [facility] Comment: Supplemental ranges: <110 mg/dL before meals <200 mg/dL all other times of the day Specimen Anatomical Collection Method Collection Time Receive d Time (Source) Location / / Volume Laterality Blood specimen 03/28/2013 9:17 AM 013 9:17 (specimen) EDT AM EDT Mesha Mcknight MD POINT OF CARE TEST ORDERABLE S Performing Organization Address City/[facility]/ZIP Code Phon e Number [address] RAKESH CARVALHOIUM Specimen to [...] Organization Address City/State/[place] [address] CERKERI CARVALHOIUM documented in [...] override documented in this encounter Care Teams Campus Chaplain Relationship Specialty Start Date End Date Angela Holliday APRN PCP - General 01/25/13 04/15/15 [address] [place] [address] documented as of this encounter
--- OUTSIDE RECORDS SUMMARY | 2022-02-13 11:21 | XMS_ITS | Encounter Summary ---
:1945 [place] [address] Care Team Providers Name Role Phone MiyaLokeshAngela STACIE Primary Care Provider Encounter Details Date Type Department Care Team Description 03/28/2013 Anesthesia Event Main Operating Room Meredith Calvert MD [facility] [place] [address] [facility] Nolvia Riojas PA [facility] [place] [address] [place] [address] Anesthesia Record Procedure Summary Procedure Name [...] Poole PA [facility] Medical [facility] Cardiology Dept [place], [place] [address] (Wo rk) 03/26/2022 Office Visit Cardiology Vitaliy Nobles MD [facility] CARDIOLOGY [place], [place] [address] (Wo rk) documented as of [...] Routine documented in this encounter Care Teams Delivery Crew Worker Relationship Specialty Start Date End Date Angela Holliday APRN PCP - General 01/25/13 04/15/[address] [place] [address] documented as of this encounter
--- OUTSIDE RECORDS SUMMARY | 2022-02-13 11:21 | XMS_ITS | Encounter Summary ---
:1945 Author Organization [place] [address] Care Team Providers Name Role Phone Adi Costello MD Primary Care Provider Reason for Visit Reason Comments Annual Exam ckeck his groin and melanoma follow-up Encounter Details Date Type Department Care Team Description 11/21/2010 Follow-Up Dermatology Arik Tipton Melanoma (Primary Dx) [facility] MD [place] [id number] DERMATOLOGY DEPT . 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 His only complaints are leg cramps, skin [...] changes: Arik Tipton MD Section of Dermatology [facility] documented in this encounter Plan of Treatment Upcoming Encounters Date Type Specialty Care Team Description 02/19/2022 Laboratory Appointment Lab 02/19/2022 Office Visit Cardiology Liz Poole PA [facility] Medical [facility] er Cardiology Dept [place], [place] [address] (Wo rk) 03/26/2022 Office Visit Cardiology Vitaliy Nobles MD [facility] ER CARDIOLOGY [place], [place] [address] (Wo rk) documented as of this encounter Visit Diagnoses Diagnosis Melanoma - Primary Melanoma of skin, site unspecified documented in this encounter Care Teams Architectural Examiner Relationship Specialty Start Date End Date Adi Costello MD PCP - General 06/17/10 09/21/11 [address] [place] [address] documented as of this encounter
--- OUTSIDE RECORDS SUMMARY | 2022-02-13 11:22 | XMS_ITS ---
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 Problem Critical ischemia I99.8 Active of lower extremity Problem Atherosclerosis I70.90 Active 3871 6007 Problem Type 2 diabetes E11.628 Active mellitus with other skin complications Problem 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 40 ; Acquired deformi ty of right foot M21.961 ; L luis term current use of i nsulin Z79.4 ; History of art erial bypass of lower extremi ty Z95.828 ; Atherosclerosis I70.90 and History of Lisfr anc amputation of fo ot Z89.439 [facility] Feb, Type 2 diabet es mellitus [address] [place] with diabe tic neuropathy, [address] unspecified E11. 40 ; Acquired deformi ty of right foot M21.961 ; L luis term current use of i nsulin Z79.4 ; History of art erial bypass of lower extremi ty Z95.828 ; Atherosclerosis I70.90 and History of Lisfr anc amputation of fo ot Z89.439 [facility] November, [place] [address] [facility] [facility] November, Type 2 [place] [address] with diabeti c neuropathy, unspecified E11. 40 ; Acquired deformi ty of right foot M21.961 ; L luis term current use of i nsulin Z79.4 ; History of art erial bypass of lower extremi ty Z95.828 ; Atherosclerosis I70.90 and History of Lisfr anc amputation of fo ot Z89.439 [facility] 10 Aug, 2019 Type 2 [place] [address] with other skin complications E1 1.628 ; Tinea pedis of l eft foot B35.3 ; Type 2 d iabetes mellitus with di abetic neuropathy, unsp ecified E11.40 ; Acquire d deformity of right foot M2 1.961 ; [facility] current use of insulin Z79.4 ; History of arterial bypass of lower extremity Z95.828 and Athe rosclerosis I70.90 [facility] Jun, [place] [address] [address] Jun, [place] [address] [address] Jun, Type 2 diabet es mellitus [place], [place] with other skin [address] complications E1 1.628 ; Acquired deformi ty of right foot M21.961 ; T ype 2 diabetes mellitu s with diabetic neuropa thy, unspecified E11. 40 ; equipment operator intermodal yard current use of insulin Z79.4 and Histor y of arterial bypass of lower extremity Z95.82 8 [facility] Feb, Type 2 [place] [address] with other s kin complications E1 1.628 ; Acquired deformi ty of right foot M21.961 ; T ype 2 diabetes mellitu s with diabetic neuropa thy, unspecified E11. 40 ; [facility]PC current use of insulin Z79.4 and Histor y of arterial bypass of lower extremity Z95.82 [address] [facility] November, Tinea pedis o f left foot [place], [place] B35.3 ; Ty pe 2 diabetes [address] mellitus with ot her skin complications E1 1.628 ; Acquired deformi ty of right foot M21.961 ; T ype 2 diabetes mellitu s with diabetic neuropa thy, unspecified E11. 40 ; equipment operator intermodal yard current use of insulin Z79.4 and Histor y of arterial bypass of lower extremity Z95.82 8 [facility] November, [place] [address] [address] Aug, Type 2 diabet es mellitus [place], [place] with diabe tic neuropathy, [address] unspecified E11. 40 ; Acquired deformi ty of right foot M21.961 ; P eripheral arterial disease I73.9 ; History of arter ial bypass of lower extremi ty Z95.828 ; [facility]PC curren t use of insulin Z79.4 an d History of Lisfranc amputat ion of foot Z89.439 UNKNOWN Jul, [facility] 11 Jun, 2018 Type 2 [place] [address] with diabeti c neuropathy, unspecified E11. [address] [facility] Apr, Edema of both legs R60.0 ; [place], [place] Acquired d eformity of right [address] foot M21.961 ; P eripheral arterial disease I73.9 ; History of arter ial bypass of lower extremi ty Z95.828 ; equipment operator intermodal yard curren t use of insulin Z79.4 an d Type 2 diabetes mellitu s with diabetic neuropa thy, unspecified E11. [address] [facility] Mar, [place] [address] [address] Mar, Edema of both legs R60.0 ; [place], [place] Acquired d eformity of right 25[address] foot M21.961 ; P eripheral arterial disease I73.9 ; History of arter ial bypass of lower extremi ty Z95.828 ; equipment operator intermodal yard curren t use of insulin Z79.4 an d Type 2 diabetes mellitu s with diabetic neuropa thy, unspecified E11. 40 [facility] Feb, Edema of both legs R60.0 ; [place] [address] Ulcer of lef t calf, limited to breakdown of skin L97.221 ; Acquired defor mity of right foot M21.9 61 ; Peripheral arter ial disease I73.9 ; History of arterial bypass of lower extremity Z95.828 ; Long t erm current use of insulin Z 79.4 and Type 2 diabetes mellitus with diabetic ne uropathy, unspecified E11. 40 [facility] 1 Feb, OFF[place] [facility] [place] [address] [facility] Feb, Edema of both legs R60.0 ; [place] [address] Ulcer of rig ht calf, limited to [...] uropathy, unspecified E11. 40 [facility] Feb, [place] [address] [facility] [address] [facility] [address] Feb, [place] [address] [facility] [address] [facility] [address] Jan, [place] [address] [facility] [address] [facility] [address] Jan, [place] [address] [facility] [address] [facility] [facility] [address] Jan, [place] [address] [facility] [address] [facility] [address] Jan, [place] [address] [facility] [address] [facility] [place] [place], [place] [address] [facility] [address] [facility] [address] Dec, [place] [address] [facility] [address] [facility] [facility] [address] Dec, [place] [address] [facility] [address] [facility] [address] Dec, [place] [address] [facility] [address] [facility] [address] Dec, [place] [address] [facility] Dec, [place] [address] [facility] [address] [facility] [address] Dec, [place] [address] [facility] November, [place] [address] [facility] November, [place] [address] [facility] November, [place] [address] [facility] November, [place] [address] [facility] November, [place] [address] [facility] November, [place] [address] UNKNOWN November, [facility] [address] November, [place]ICE [place] [address] [facility] November, [place] [address] [facility] Oct, [place] [address] [facility] Oct, [place] [address] [facility] Oct, [place] [address] [facility] [address] 18 Oct, 2017 [place] [address] [facility] 16 Oct, 2017 [place] [address] [facility] [address] 16 Oct, 2017 [facility] [address] [facility] Oct, [place] [address] [facility] Oct, [place] [address] [facility] Oct, [place] [address] [facility] [address] Sep, [facility] [address] [facility] Sep, [place] [address] [facility] [address] Sep, [place] [address] [facility] [address] Sep, [place] [address] [facility] [address] Sep, [place] [address] [facility] [address] Sep, Critical ischemi a of lower [place] [address] extremity I 99.8 ; Local infection of the skin and subcutaneous tis lindsey, unspecified L08. 9 and Type 2 diabetes mellitu s with other skin complicatio ns E11.628 [facility] Sep, [place] [address] [facility] [address] [facility] [address] Sep, [place] [address] [facility] [address] [facility] [address] Sep, [place] [address] [facility] [address] 14 Sep, [address] [place] [address] [facility] Sep, [place] [address] [facility] Sep, [place] [address] [facility] Sep, [place] [address] [facility] Sep, [place] [address] [facility] [address] [facility] [address] Aug, [place] [address] [facility] [address] Aug, [facility] [address] [facility] [address] Aug, [place] [address] [facility] Aug, [place] [address] [facility] Aug, [place] [address] [facility] Aug, [place] [address] ORTHOPEDIC OFFICE [facility] Aug, Pre-op exam Z01.818 [place] [address] [facility] Aug, [place] [address] [facility] Aug, [place] [address] [facility] Aug, [place] [address] IMMUNIZATIONS No Known Immunizations SOCIAL HISTORY Qualifiers [...] subcutaneously 22 24h Active units/mL daily Pen [place] Active Ciclopirox Externally Twice 1 application 12h [...] 3 mg orally once (at 2 tab(s) 20 Aug, Not-Taki bedtime) 2017 ng Warfarin Sodium [...] reported u FERRITIN 2018-07-01 Ferritin 33 FERRITIN CBC WITH AUTO DIFF 2018-01-11 WBC 6.9 [...] 12.4 MO% 9.5 EO% 1.3 BA% 0.3 COMPMET 2018-01-11 GLUC 145 74-106 BUN 26 7-18 CREATS 1.08 0.55-1.30 EGFR >60 >=60 NA 140 136-144 K+ 4.4 3.7-5.0 CL 102 98-108 CO2 27 22-32 CA 9.2 8.5-10.1 TP 6.9 6.5-8.1 ALB 3.5 3.4-5.0 TBIL 0.7 0.3-1.2 DBIL 0.2 0.0-0.2 ALKP 68 46-116 AST 22 15-37 ALT 32 13-78 CRP-INFLAM 2018-01-11 CRP <0.2 0.0-0.9 SED RATE 2018-01-11 ESR 19 0-20 X Foot R 3V 2018-01-11 See Below [...] PT/INR 2017-11-05 PT 17.4 9.3-11.4 INR 1.8 CULTURE ANAEROBIC 2017-10-12 RESULT 1 [id number] CULTURE WOUND 2017-10-12 SENSITIVITY ORGANISM 1 2017-10-12 Penicillin 16 Ampicillin 4 Ciprofloxacin <=0.5 Levofloxacin 2 Erythromycin <=0.25 Linezolid 2 Vancomycin <=0.5 Tetracycline <=1 Tigecycline <=0.12 X Chest 1V 2017-09-29 See Below For Report CBC WITH AUTO DIFF 2017-09-28 WBC 9.2 [...] 8.1 MO% 6.8 EO% 1.1 BA% 0.3 COMPMET 2017-09-28 GLUC 126 74-106 BUN 27 7-18 CREATS 1.36 0.55-1.30 EGFR 51 >=60 NA 138 136-144 K+ 4.9 3.7-5.0 CL 99 98-108 CO2 29 22-32 CA 8.3 8.5-10.1 TP 6.0 6.5-8.1 ALB 2.7 3.4-5.0 TBIL 0.3 0.3-1.2 DBIL 0.1 0.0-0.2 ALKP 83 46-116 AST 27 15-37 ALT 39 13-78 CRP-INFLAM 2017-09-28 CRP 1.0 0.0-0.9 SED RATE 2017-09-28 ESR 32 0-20 PT/INR 2017-09-28 PT 23.2 9.3-11.4 INR 2.4 GLUCOSE POINT OF CARE 2017-09-16 GLUCOSE 138 74-118 COMMENT1 CULTURE ANAEROBIC 2017-09-16 RESULT 1 [id number] RESULT 2 RAEROB CULTURE OTHER 2017-09-16 PT/INR 2017-09-16 PT 11.2 9.3-11.4 INR 1.1 SENSITIVITY ORGANISM 2 2017-09-16 Penicillin 4 Ampicillin <=2 Ciprofloxacin <=0.5 Levofloxacin 1 Erythromycin >=8 Linezolid 2 Vancomycin 1 Tetracycline <=1 Tigecycline <=0.12 SENSITIVITY ORGANISM 3 2017-09-16 Gentamicin <=1 Ciprofloxacin <=0.25 Levofloxacin <=0.12 GLUCOSE POINT OF CARE 2017-09-16 GLUCOSE 128 74-118 COMMENT1 X Foot R 3V 2017-09-16 See Below For Report MR Lower Ext R w/o ([id number]) 2017-09-16 See Below For Report CR C-ARM MINI 2017-09-16 See Below For Report BASEMET 2017-09-14 GLUC 134 74-106 BUN 26 7-18 CREATS 1.13 0.55-1.30 EGFR >60 >=60 NA 138 136-144 K+ 4.4 3.7-5.0 CL 100 98-108 CO2 31 22-32 CA 8.9 8.5-10.1 CBC WITH AUTO DIFF 2017-09-14 WBC 7.9 [...] PT/INR 2017-09-14 PT 13.2 9.3-11.4 INR 1.3 ALBUMIN 2017-09-09 ALB 3.3 3.4-5.0 CBC WITHOUT [...] A1c 03/04/18 - 6.7, [facility] [facility], f/u - bilateral leg edema, Pt [...] at wound center,lab work done 03/07/2018 @ [facility], Patient came in with tubigrip bilateral , wound clin est, wound clinest, Wound CTR-follow up, Wound CTR-follow up, Wound CTR-follow up, Peer to Peer w/ Dr. Espino, Wound CTR-follow up, Wound CTR-follow up, [facility] Documentation, LAB, Wound CTR-follow up, Wound CTR-follow up, Wound CTR-follow up, Wound CTR-follow up, LAB, LAB, Wound CTR- follow up, Wound CTR-follow up, Wound CTR-follow up, [facility] Documentation, [facility], Wound CTR-follow up, Wound CTR-follow up, Pull PICC Line, Wound CTR-follow up, Wound CTR-follow up, LAB, Still taking doxycycline 100mg? , Wound CTR-follow up, Wound CTR-follow up, Wound CTR-follow up, [facility] Documentation, Wound CTR-follow up, Wound CTR-follow up, Call back, [facility] Documentation, [facility] Documentation, [facility] Documentation, Wound CTR-follow up, WCC, Wound CTR-follow up, Wound CTR-follow up, labs, D/C planning, bailey smetatarsal amputation of right foot, LAB, LAB, Wound CTR-NEW Insurance Providers [facility] Member Patient Patient Patient Patient Patient Subscriber Subscriber Subscriber Group Insurance Plan Plan Plan Plan ID Relationship Address Phone Name Date of ID Name Date of No Type Insurance Insurance Insurance Coverage to Subscriber Address Phone Name Dates SELF PAY [address] STRE[address] SELF PAY self [place] [id number] AFTER BLUE WEBER AFTER [facility] [id number] [address] MEDICARE 3000 [place] MEDICARE self [place] [id number] [facility] [id number] OTHER [address] [place] [phone] OTHER [place] [id number] 1^MAIN [place] [facility] [facility] PA[facility]OR [id number] S-BLUE [phone] S-BLUE [place] [id number] [address] [address] [place] [address] [place]
--- OUTSIDE RECORDS SUMMARY | 2022-02-16 08:10 | XMS_ITS | Encounter Summary ---
:1945 Author Organization [facility] Address [address] [place] [address] Care Team Providers Name Role Phone Unknown, Provider Primary Care Provider Encounter Details Date Type Department Care Team Description 07/11/2014 Results Only [facility] Shruthi Horowitz MD Laboratory Services - [address] [place] [address] [place] [address] 0 [place] [address] [phone] Social History Tobacco Use Types Packs/Day Years Used Date Never Assessed Sex Assigned at Date Recorded Not on file documented as of this encounter Plan of Treatment Not on filedocumented as of this encounter Procedures Procedure Name Priority Date/Time Associated Diagnosis Comme [facility] SURGICAL PATHOLOGY Routine 07/11/2014 8:55 EST Re sults for this procedure are i n the results section. documented in this encounter Results SURGICAL PATHOLOGY (07/11/2014 8:55 EST) Pathology Report: SURGICAL PATHOLOGY REPORT [facility] Reports generated via electronic interface contain sorin ginal data; LABORATORY however they are lacking the format of the original re port. SERVICES Caution should be taken when reading/interpreting unfo rmatted reports. Name: ? DON HOANG ? Accession #: ? [id number] ? : ? 1945 (Age: 69) ??M [...] 6.5 x 3.0 cm in aggreg ate). Men'S Leather Dress Belt Maker sections are submitted in 1- 10 (approximately 40% of the specimen is submitted). Viry Nunez 07/12/2014 11:21 AM End of Report Specimen Performing Organization Address City/State/ZIP Code Phon e Number [facility] [address] [place] [address] SERVICES documented in this encounter Visit Diagnoses Not on filedocumented in this encounter Care Teams Activated Sludge Attendant Relationship Specialty Start Date End Date Unknown, Provider, PCP - General 03/07/14 07/12/14 documented as of this encounter
--- OUTSIDE RECORDS SUMMARY | 2022-02-16 08:10 | XMS_ITS | Encounter Summary ---
:1945 Author Organization [facility] Address [address] [place] [address] Care Team Providers Name Role Phone Lovely Vicente MD Primary Care Provider Encounter Details Date Type Department Care Team Description 04/04/[address] [facility] Outr Resulting Lab, Pathology & Laboratory Provider [facility] [address] [place] [address] Social History Tobacco Use Types Packs/Day Years Used Date Never Assessed Sex Assigned at Date Recorded Not on file documented as of this encounter Plan of Treatment Not on filedocumented as of this encounter Procedures Procedure Name Priority Date/Time Associated Diagnosis Comme nts FECAL BACTERIAL Routine 04/03/2021 12:15 Results for this PATHOGENS BY PCR EDT procedure a re in the results section. documented in this encounter Results FECAL BACTERIAL PATHOGENS BY PCR (04/03/2021 12:15 EDT) Pathologist Sig nature Salmonella PCR Negative Negative [facility] SERVICES Shigella/Enteroinvasive Negative Negative [facility] HN LAB CAMPYLOBACTER PCR Negative Negative [facility] SERVICES Shiga Toxin PCR Negative Negative [facility] SERVICES Specimen Feces - Specimen from rectum (specimen) Performing Organization Address City/State/ZIP Code Phon e Number [facility] [address] [place] [address] SERVICES documented in this encounter Visit Diagnoses Not on filedocumented in this encounter Care Teams Organ Tuner Relationship Specialty Start Date End Date Lovely Vicente MD PCP - General 07/13/14 documented as of this encounter
--- OUTSIDE RECORDS SUMMARY | 2022-02-16 08:10 | XMS_ITS | Encounter Summary ---
:1945 Author Organization [facility] Address [address] [place] [address] Care Team Providers Name Role Phone Lovely Vicente MD Primary Care Provider Encounter Details Date Type Department Care Team Description 01/17/2021 Lab Requisition [facility] Outr Resulting Lab, Pathology & Laboratory Provider [facility] [address] [place] [address] Social History Tobacco Use Types Packs/Day Years [...] nature PSA 2.9 0.0 - 6.5 ng/mL [facility] Specimen Blood - Venous blood (substance) Narrative [facility] - 01/17/2021 17:46 EDT NOTE: Serum PSA concentration should not be in terpreted as absolute evidence for the presence or absence of malignant disease. Assayed on Siemens ADVIA Centaur XPT usi ng chemiluminescent technology.??Values obtained by using different assay methods cannot be used interchangeably. Performing Organization Address City/State/ZIP Code Phon e Number [facility] [address] [place] [address] SERVICES documented in this encounter Visit Diagnoses Not on filedocumented in this encounter Care Teams Fuse Maker Relationship Specialty Start Date End Date Lovely Vicente MD PCP - General 07/13/14 documented as of this encounter
--- OUTSIDE RECORDS SUMMARY | 2022-02-16 08:10 | XMS_ITS | Encounter Summary ---
:1945 Author Organization [facility] Address [address] [place] [address] Care Team Providers Name Role Phone Lovely Vicente MD Primary Care Provider Encounter Details Date Type Department Care Team Description 08/11/2019 Lab Requisition [facility] Unknown, Provider, Pathology & Laboratory [facility] [address] [facility] [place] [address] Social History Tobacco Use Types Packs/Day Years [...] (08/11/2019 14:35 EST) Giardia and Cryptosporidium Cryptosporidium [facility] Cryptosporidium Antigen Neg and Antigen Neg and CENTER Giardia Antigen Neg Giardia Antigen Neg LABORATORY SERVICES Specimen Feces - Specimen from rectum (specimen) Performing Organization Address City/State/ZIP Code Phon e Number [facility] [address] [place] [address] SERVICES documented in this encounter Visit Diagnoses Not on filedocumented in this encounter Care Teams Word Processor Operator Relationship Specialty Start Date End Date Lovely Vicente MD PCP - General 07/13/14 documented as of this encounter
--- OUTSIDE RECORDS SUMMARY | 2022-02-16 08:10 | XMS_ITS | Encounter Summary ---
:1945 Author Organization [facility] Address [address] [place] [address] Care Team Providers Name Role Phone Unknown, Provider Primary Care Provider Encounter Details Date Type Department Care Team Description 07/11/2014 Hospital Encounter [facility]- [place] Unknown, Provider, [facility] [address] [place] [address] [place] [address] (Work) [phone] Social History Tobacco Use Types Packs/Day Years Used Date Never Assessed Sex Assigned at Date Recorded Not on file documented as of this encounter Discharge Disposition Disposition Code Departure Means Destination Home or Self Usp documented in this encounter Plan of Treatment Not on filedocumented as of this encounter Visit Diagnoses Not on filedocumented in this encounter Care Teams Medical Billing Supervisor Relationship Specialty Start Date End Date Unknown, Provider, PCP - General 03/07/14 07/12/14 documented as of this encounter
--- OUTSIDE RECORDS SUMMARY | 2022-02-16 08:10 | XMS_ITS | Encounter Summary ---
:[address] [facility] Address [address] [place] [address] Care Team Providers Name Role Phone Lovely Vicente MD Primary Care Provider Encounter Details Date Type Department Care Team Description 01/01/2020 Lab Requisition [facility] Outr Resulting Lab, Pathology & Laboratory Provider [facility] [address] [place] [address] Social History Tobacco Use Types Packs/Day Years [...] nature PSA 2.1 0.0 - 6.5 ng/mL [facility] Specimen Blood - Venous blood (substance) Narrative [facility] - 01/02/2020 10:40 EDT NOTE: Serum PSA concentration should not be in terpreted as absolute evidence for the presence or absence of malignant disease. Assayed on Siemens ADVIA Centaur XPT usi ng chemiluminescent technology.??Values obtained by using different assay methods cannot be used interchangeably. Performing Organization Address City/State/ZIP Code Phon e Number [facility] [address] [place] [address] SERVICES documented in this encounter Visit Diagnoses Not on filedocumented in this encounter Care Teams Junior Copywriter Relationship Specialty Start Date End Date Lovely Vicente MD PCP - General 07/13/14 documented as of this encounter
--- OUTSIDE RECORDS SUMMARY | 2022-02-16 08:10 | XMS_ITS | Encounter Summary ---
:1945 Author Organization [facility] Address [address] [place] [address] Care Team Providers Name Role Phone Unknown, Provider Primary Care Provider Encounter Details Date Type Department Care Team Description 03/05/2014 Results Only [facility] Eris Taylor MD Laboratory Services - [address] [place] [address] [place] [id number] [phone] Social History Tobacco Use Types Packs/Day Years Used Date Never Assessed Sex Assigned at Date Recorded Not on file documented as of this encounter Plan of Treatment Not on filedocumented as of this encounter Procedures Procedure Name Priority Date/Time Associated Diagnosis [facility] SURGICAL PATHOLOGY Routine 03/05/2014 10:34 Resul ts [...] ? DON HOANG ? Accession #: ? [id number] ? : ? 1945 (Age: 68) ??M [...] Organization Address City/State/ZIP Code Phon e Number [facility] [address] [place] [address] SERVICES [facility] [address] [place] [address] documented in this encounter Visit Diagnoses Not on filedocumented in this encounter Care Teams Sales Operations Relationship Specialty Start Date End Date Unknown, Provider, PCP - General 03/07/14 07/12/14 documented as of this encounter
--- OUTSIDE RECORDS SUMMARY | 2022-02-16 08:10 | XMS_ITS | Encounter Summary ---
:1945 Author Organization [facility] Address [address] [place] [address] Care Team Providers Name Role Phone Lovely Vicente MD Primary Care Provider Encounter Details Date Type Department Care Team Description 04/04/2021 Lab Requisition [facility] Outr Resulting Lab, Pathology & Laboratory Provider [facility] [address] [place] [address] Social History Tobacco Use Types Packs/Day Years [...] (04/03/2021 12:15 EDT) Giardia and Cryptosporidium Cryptosporidium [facility] Cryptosporidium Antigen Neg and Antigen Neg and CENTER Giardia Antigen Neg Giardia Antigen Neg LABORATORY SERVICES Specimen Feces - Specimen from rectum (specimen) Performing Organization Address City/State/ZIP Code Phon e Number [facility] [address] [place] [address] SERVICES documented in this encounter Visit Diagnoses Not on filedocumented in this encounter Care Teams Boat Cleaning Supervisor Relationship Specialty Start Date End Date Lovely Vicente MD PCP - General 07/13/14 documented as of this encounter
--- OUTSIDE RECORDS SUMMARY | 2022-02-16 08:10 | XMS_ITS | Clinical Summary ---
:1945 Author Organization [facility] Address [address] [place] [address] Care Team Providers Name Role Phone Lovely [...] from Last 3 Months Results COVID-19 TEST [facility] PCR (01/27/2022 14:30 EDT) Specimen Swab Performing Organization Address City/State/ZIP Code Phon e Number [facility] LABORATORY [address] [place] [address] SERVICES COVID-19 TESTING (01/27/2022 14:30 EDT) COVID-19 rt-PCR Negative Negative [facility] MEDICAL Result Comment: CENTER LABORATORY This [...] performed using the meliton SARS-CoV-2 assay ([employer] on the Meliton 6800 System Performing Lab Meliton 6800 [facility] Lab [facility] SERVICES Specimen Swab Performing Organization Address City/State/ZIP Code Phon e Number [facility] [address] [place] [address] SERVICES from Last 3 Months Care Teams Councillor [employer] Relationship Specialty Start Date End Date Lovely Vicente MD PCP - General 07/13/14
--- OUTSIDE RECORDS SUMMARY | 2022-02-16 08:11 | XMS_ITS | Encounter Summary ---
:1945 Author Organization [facility] Address [facility] [place] [address] Care Team Providers Name Role Phone Lovely Vicente MD Primary Care Provider Reason for Visit Auth/Cert Specialty Diagnoses / Procedures Referred By Contact Refer red To Contact Diagnoses ASCVD (arteriosclerotic cardiovascular disease) [I25.10] Vitaliy Nobles MD [facility] Procedures PRO PERC TRLUML CORONARY STENT W/ANGIO ONE ART/BRANCH CARDIAC CATHETERIZATION STENT PLACEMENT-SINGLE MAJOR CORONARY ARTERY OR BRANCH [facility] [place] [address] Referral ID Status Reason Start Date Expiration Date Visits Requ ested Visits Authorized [id number] 1 1 Encounter Details Date Type Department Care Team Description 01/30/2022 Hospital Encounter Short Stay Unit at Vitaliy Nobles, CVD (arteriosclerotic cardiovascular disease); Barbara Blue MD 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 Please follow up with your planer feeder in the next 4-6 weeks. We have made a referral to cardiac rehab. Please see the attached instructions regarding care to your right wrist access site. AttachmentsThe following attachments cannot be sent through Care Everywhere. Coronary Angiogram: Post-op (Lao)documented in this encounter Medications at Time of [...] daily. 10/08 Needle aspirin 81 mg Capsule 1 capsule by Per 14 capsule 0 01/31/20 22 02/13/2022 PO/OG/NG route daily for 14 days. documented as of this encounter Progress Notes Carlos Alberto Murray RN - 01/30/2022 4:[address] [facility] Short Stay Unit Discharge Note All [...] recent PCI presenting for staged PCI to [facility]. The pt states he has been [...] recent PCI presenting for staged PCI to [facility]. The indications, expected benefits, and potential [...] SSU team Don has history of prior [place] and CABG. I had referred him to cardiac rehab at [facility] last month per HF team. He was waiting until this intervention before starting the program. Reviewed managing angina /use of sl nitroglycerin. Given parameters for home exercise. 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 We discussed short walks several times per day. Will send [facility] his discharge summary from this admission. The patient should be contacted by the Program within 1- 2 weeks from discharge. Brief Op Note - Vitaliy Nobles MD - 01/30/2022 10:19 AM EDT Images from the original note were not included. [facility] [place] [id number] CORONARY ANGIOGRAM AND PERCUTANEOUS CORONARY INTERVENTION REPORT Patient: Don Fatima : 1945 MR number: [id number] Date of Service: 01/30/2022 Technical Illustrations Map Inker: Vitaliy Nobles MD Fellow: AJ DeLago INDICATION: [...] a long 2.0 x 26 mm HARDEEP Meigs TUCKER stent and positioned it at the [...] using a 2.0 x 26 mm HARDEEP Meigs TUCKER stent. This completes the revascularization ofall [...] PA [facility] Cardiology Dept [place], [place] [address] (Wo rk) 03/26/2022 Office Visit Cardiology Vitaliy Nobles MD [facility] CARDIOLOGY [place], [place] [address] (Wo lissa) Scheduled Orders Name [...] P athologist Signature Neutrophils % 71.8 % [facility] Neutr Abs (ANC) 3.96 1.70 - [facility] 6.10 [facility] x10(3)/[facility] LABORATORY Lymphocytes % 16.3 % [facility] Lymphocytes Abs 0.9 0.9 - 3.2 [facility] x10(3)/[facility] LABORATORY Monocytes % 10.0 % [facility] Monocyte Abs 0.6 0.3 - 0.9 [facility] x10(3)/[facility] LABORATORY Eosinophils % 0.5 % [facility] Eosinophils Abs 0.0 0.0 - 0.4 [facility] x10(3)/[facility] LABORATORY Basophils % 0.5 % [facility] Basophils Abs 0.0 0.0 - 0.1 [facility] x10(3)/[facility] LABORATORY Immature Gran % 0.90 % [facility] Comment: Immature granulocytes(IG's)percentage an d absolute count will include metamyelocytes, myelocytes, and promyelo cytes. Blood smears from CBCs yielding IG's will be scanned manually for concor dance. If this scan disagrees with the automated IG or if promyelocytes are not ed, a manual differential will be performed. Melisa Gran Abs 0.05 (H) 0.00 - 0.04 x10(3)/[facility] LABORATORY Specimen Anatomical Collection Method Collection Time Receive d Time (Source) Location / / Volume Laterality Blood 01/30/2022 2:12 PM 2 2:37 EDT PM EDT Resulting Agency Comment Spec In Lab Eddi Elizabeth Jr., MD HEMATOLOGY ORDERABLES Performing Organization Address City/State/ZIP Code [place] [address] (ABNORMAL) Hemogram (01/30/2022 2:12 PM EDT) Analysis Performed At Patho logist Time Signature WBC 5.5 4.0 - 9.5 [facility] x10(3)/[facility] LABORATORY RBC 4.30 (L) 4.58 - [facility] 5.54 [facility] x10(6)/[facility] LABORATORY Hemoglobin 12.7 (L) 13.7 - [facility] 16.5 g/dL [facility]ORY Hematocrit 39.4 (L) 40.5 - [facility] 48.5 % [facility] MCV 91.6 82.9 - [facility] 93.1 fL [facility]ORY MCH 29.5 27.5 - [facility] 32.1 pg [facility]ATORY MCHC 32.2 32.0 - [facility] 35.7 g/dL [facility]ORY Platelets 172 145 - 357 [facility] x10(3)/[facility] LABORATORY RDWSD 54.5 (H) 36.0 - [facility] 45.0 [facility] LABORATORY RDWCV 16.4 (H) 11.4 - [facility] 13.8 % [facility] LABORATORY MPV 9.2 7.6 - 12.9 [facility] LABORATORY nRBC % Auto 0.0 % [facility]ORY nRBC Abs Auto 0.000 0.000 - [facility] 0.000 [facility] x10(3)/[facility] LABORATORY Specimen Anatomical Collection Method Collection Time Receive d Time (Source) Location / / Volume Laterality Blood 01/30/2022 2:12 PM 2 2:37 EDT PM EDT Resulting Agency Comment Spec In Lab Eddi Elizabeth Jr., MD HEMATOLOGY ORDERABLES Performing Organization Address City/State/ZIP Code Phon e Number [place] [phone] LAB[address]ORY [address] (ABNORMAL) Basic Metabolic Panel (non-fasting) (01/30/2022 2:12 PM EDT) P athologist Signature Glucose Lvl 163 65 - 199 [facility] mg/dL [facility] LABORATORY Comment: Diabetes: >=200 mg/dL plus symp toms BUN 30 (H) 10 - 20 mg/dL [facility] LABORATORY Creatinine 1.47 0.80 - 1.50 [...] [facility] Anion Gap 11 5 - 15 mmol/L [facility] LABORATORY Calcium 9.2 8.5 - 10.5 mg/dL [facility] LAB[facility]ORY Estimated GFR 49 (L) >=60 mL/min/1.73 m?? [facility] Comment: This patient's [...] Organization Address City/State/ZIP Code Phon e Number [address] POCT Glucose (01/30/2022 1:41 PM EDT) athologist Signature POC Glucose 148 65 - 199 [facility] mg/dL [facility] LABORATORY Comment: Supplemental ranges: <140 mg/dL before meals <180 mg/dL all other times of the day Specimen Anatomical Collection Method Collection Time Receive d Time (Source) Location / / Volume Laterality Blood 01/30/2022 1:41 PM 2 1:41 EDT PM EDT Vitaliy Nobles MD POINT OF CARE TEST ORDERABLE S Performing Organization Address City/State/ZIP Code Phon e Number [address] POCT Glucose (01/30/2022 10:48 AM EDT) athologist Signature POC Glucose 193 65 - 199 [facility] mg/dL [facility] LABORATORY Comment: Supplemental ranges: <140 mg/dL before meals <180 mg/dL all other times of the day Specimen Anatomical Collection Method Collection Time Receive d Time (Source) Location / / Volume Laterality Blood 01/30/2022 10:48 01/30/2022 AM EDT 10:48 AM EDT Vitaliy Sandra Nobles MD POINT OF CARE TEST ORDERABLE S Performing Organization Address City/[facility]/ZIP Code [place] [address] EKG 12 Lead (01/30/2022 10:33 AM EDT) Component Value Ref Range Test Analysis Performed Pathologis t Method Time At Signature Ventricular rate 64 BPM MUSE SYSTEM Atrial Rate 64 BPM MUSE SYSTEM P-R Interval 162 ms MUSE SYSTEM QRS Duration 94 ms MUSE SYSTEM Q-T Interval 422 ms MUSE SYSTEM QTC Calculated 435 ms MUSE SYSTEM (Bezet) Calculated P [place] 41 degrees MUSE SYSTEM Calculated R [place] -27 degrees MUSE SYSTEM Calculated T [place] 104 degrees MUSE SYSTEM INTERPRETATION Normal sinus rhythm MUSE SYSTEM Anterolateral infarct (cited on or before 09-DEC-2021) Abnormal ECG When compared with ECG of 10-DEC-2021 11:17, No significant change was found Confirmed by Gary Perez ([id number]) on 01/30/2022 5:57:5 2 PM Specimen Anatomical Collection Method Collection Time Receive d Time (Source) Location / / Volume Laterality 01/30/2022 10:33 01/30/2022 5:57 AM EDT PM EDT Vitaliy Sandra Nobles MD ECG ORDERABLES Performing Organization Address City/[facility]/ZIP Code Phon e Number MUSE SYSTEM CARDIAC CATHETERIZATION (01/30/2022 10:16 AM EDT) Specimen (Source) Anatomical Location Collection Method / Collectio n Time Received Time / Laterality Volume Narrative CARDIOMAC SYSTEM - 01/30/2022 2:09 PM ED T ?[facility] ? Cardiac Cathete rization/Intervention Report ? Patient Name: Don Fatima. ? Procedure Date: 01/30/2022 ? A #: [id number] ? Primary Physician: Nobles, Vitaliy P ? Case #: [id number] ? File Name: [id number] ? Catheterization Order Number: [id number] ? [facility] ? Final Report [place], [place] ? Patient Name: ? Don E. Stewa rt ? ID#: ?[id number] ? : ?1945 ? Procedure Date: ? January 30, 2022 ? Case #: ? [id number] ? Room: ? 1 ? Case Physician: [...] kacie gnated as ASA Class III. The [facility] clinical ?frailty scale is 5: Mildly [...] procedure was Urgent. The indication for ?the cathead operator visit is stable kn own CAD. [...] guiding catheter an d a 3.5 Fr [facility] [address] ??20 Mhz ?using Manual pullback. ??Imagin [...] A premounted 2.00 x 26 mm Hardeep Meigs (TUCKER) ? was deployed wi th a [...] Wedelivered along 2.0 x 26 mm HARDEEP Meigs ? TUCKER stent and p ositioned it [...] dose administered prior to arrival in the cathead operator. ?Recommended anti-platelet/anti- thrombotic regimen: ?Continue aspirin [...] require ?modification of this regimen. C [facility] Interventional Cardiology for ?questions. ?The 1 year bleeding risk as nusrat culated by the PRECISE DAPT score is High ?risk. ?High Bleeding Risk - Anticoagul ation and DAPT: ?- ??Assess ischemic and bleedin g risks using validated risk predictors ?(e.g. CHADS2-VASC, HAS-BLED, [place] ECISE DAPT, DAPT Score) ?- ??Keep anticoagulant [...] using a 2.0 x 26 mm HARDEEP Meigs TUCKER stent. ?This completes the revasculariz ation [...] MD CARDIAC CATH ORDERABLES Performing Organization Address City/[facility]/ZIP Code Phon e Number CARDIOMAC SYSTEM (ABNORMAL) POCT Glucose (01/30/2022 9:04 AM EDT) P athologist Signature POC Glucose 212 (H) 65 - 199 [place] mg/dL [facility]ORY Comment: Supplemental ranges: <140 mg/dL before meals <180 mg/dL all other times of the day Specimen Anatomical Collection Method Collection Time Receive d Time (Source) Location / / Volume Laterality Blood 01/30/2022 9:04 AM 2 9:04 EDT AM EDT Vitaliy Sandra Nobles MD POINT OF CARE TEST ORDERABLE S Performing Organization Address [facility] [place] [address] (ABNORMAL) POCT Glucose (01/30/2022 8:10 AM EDT) P athologist Signature POC Glucose 224 (H) 65 - 199 [place] mg/dL [facility] LAB[facility]ORY Comment: Supplemental ranges: <140 mg/dL before meals <180 mg/dL all other times of the day Specimen Anatomical Collection Method Collection Time Receive d Time (Source) Location / / Volume Laterality Blood 01/30/2022 8:10 AM 2 8:10 EDT AM EDT Vitaliybrock Nobles MD POINT OF CARE TEST ORDERABLE S Performing Organization Address City/[facility]/[place] [address] documented in this encounter Visit Diagnoses Diagnosis ASCVD (arteriosclerotic cardiovascular d isease) Unspecified cardiovascular disease 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 ASHD (arteriosclerotic heart disease) Coronary atherosclerosis of unspecified type of vessel, [place] or graft ASCVD (arteriosclerotic cardiovascular d isease) Unspecified cardiovascular disease documented in this encounter Admitting Diagnoses Diagnosis CAD (coronary artery disease) Coronary atherosclerosis of unspecified type of vessel, [place] or graft documented in this encounter Administered [...] Procedure), Routine niCARdipine (Cardene) (100 mcg/mL) dilution (POTATO CHIP PACKAGING MACHINE OPERATOR) (CANCELED ) 0927 (Given - Provider: Vitaliy [...] (Intra-Procedure) documented in this encounter Care Teams Shop Tailor Apprentice Relationship Specialty Start Date End Date Loevly Vicente MD PCP - General 04/16/[address] [place] [address] documented as of this encounter
--- OUTSIDE RECORDS SUMMARY | 2022-02-16 08:11 | XMS_ITS | Clinical Summary ---
:1945 Author Organization [facility] [place] [address] Care Team Providers Name Role Phone Lovely [...] 0 Active times daily. ascorbic acid, Vitamin C, Take 500 mg by mouth 0 Active (VITAMIN C) 500 mg Tablet daily. LANTUS SOLOSTAR U-100 35 Units nightly. 0 05/29/2019 Active INSULIN pen atorvastatin (Lipitor) 40 Take 10 mg by mouth daily. 0 Active mg Tablet 5 days weekly. insulin lispro (HumaLOG) Inject 25 Units 0 Active Insulin Pen subcutaneously 3 times daily (before meals). losartan (COZAAR) 100 mg Take 50 mg by mouth daily. 0 04/14/2021 Active Tablet ferrous sulfate 325 mg (65 Take 325 mg by mouth daily 0 Active mg iron) Tablet (with breakfast). Tablet 4 days a week. apixaban (Eliquis) 5 mg Take 1 tablet by mouth 2 60 tablet 3 0 12/10/2021 Active Tablet times daily. clopidogreL (Plavix) 75 mg Take 1 tablet by mouth 90 tablet 3 12/12/2021 Active Tablet daily. empagliflozin (Jardiance) Take 1 tablet by mouth 30 tablet 3 0 12/12/2021 Active 10 mg Tablet daily. nitroGLYcerin (Nitrostat) Place 1 tablet under the 90 tablet 12 12/12/2021 Active 0.4 mg Tablet, Sublingual tongue every 5 minutes as needed for Chest pain. pantoprazole EC (Protonix) Take 1 tablet by mouth 90 tablet 3 12/12/2021 Active 40 mg Tablet, Delayed daily. Release (E.C.) spironolactone (Aldactone) Take 1 tablet by mouth 90 tablet 3 12/12/2021 Active 25 mg Tablet daily. clobetasoL (TEMOVATE) 0.05 APPLY TOPICALLY DAILY 0 09/02/2021 Active % Solution NEEDED FOR RASH torsemide (Demadex) 20 mg Take 1 tablet by mouth 30 tablet 11 0 12/25/2021 Active TabletIndications: Chronic daily. systolic heart failure Active Problems Problem Noted Date CAD (coronary artery disease) 01/30/2022 Admitted with CHF. CABG 2017. Found to [...] note is dif ferent from the original. 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; ASHD (arteriosc lerotic heart disease) 01/28/2022 Orders Only Cardiology JEMIMA Gannon PA (arteriosclerot ic cardiovascular disease) 01/28/2022 Telephone Cardiology Chitra Angela Advice Only VAMSI Gomes 12/30/2021 Notes Only Cardiology Rebeka Deluca RN 12/25/2021 Office Visit Cardiology Virgilio, Chronic systoli c heart STEPHANIE Hill failure 12/25/2021 Laboratory Lab Chronic systoli c heart Appointment failure 12/24/2021 Telephone [facility] Dayami Buckner 12/24/2021 Orders Only Cardiology JEMIMA Gannon PA (arteriosclerot ic cardiovascular disease) 12/15/2021 Telephone Cardiology Barbara Mera RN 12/12/2021 Refill Cardiology Janneth Padilla Medication R STEPHANIE Fletcher (Torsemide) 12/12/2021 Telephone Cardiology Barbara Mera, VAMSI 12/10/2021 Surgery Cardiology Vitaliy Nobles, CARDIAC MD [...] [facility] Cardiology Dept [place], [place] [address] (Wo rk) 03/26/2022 Office Visit Cardiology Vitaliy Nobles MD [facility] CARDIOLOGY [place], [place] [address] (Wo rk) Health Maintenance Due Date Last Done Comments Covid-19 Vaccine (#1) 1950 Pneumoccocal Vaccine: 65+ (1 - PCV) 1952 Hepatitis C Screening 1964 Tdap adult 1965 Tetanus vaccine 1965 Zoster vaccine (1 of 2) 1996 AAA Screen 2011 Colonoscopy 01/16/2019 01/16/2014, 01/16/2014 Influenza (Flu) vaccine (1 of 1 - 03/26/2022 03/29/2013, Influenza standard series) Medical Devices Implanted Type Area Pattern Perforating Machine Operator Device Shelf Model / Identifier Expiration Serial / Date Lot Cable,Cut,Edg,Blnt,Ss,3tpr ([id number]) - [id number] IMPLANTS Midline: [employer] 04/01/2022 [id number] / Implanted: Qty: 4 on 07/07/2017 by Yuan Retana MD at [facility] [employer] - / [id number] Procedures Procedure Name Priority Date/Time Associated Diagnosis [...] Time Signature WBC 5.5 4.0 - 9.5 [facility] x10(3)/[facility] LABORATORY RBC 4.30 (L) 4.58 - [facility] 5.54 [facility] x10(6)/[facility] LABORATORY Hemoglobin 12.7 (L) 13.7 - [facility] 16.[facility] g/dL [facility] Hematocrit 39.4 (L) 40.5 - [facility] 48.5 % [facility] MCV 91.6 82.9 - [facility] 93.1 [facility] LABORATORY MCH 29.5 27.5 - [facility] 32.1 pg [facility] MCHC 32.2 32.0 - [facility] 35.7 g/dL [facility] Platelets 172 145 - 357 [facility] x10(3)/[facility] LABORATORY RDWSD 54.5 (H) 36.0 - [facility] 45.0 [facility] LABORATORY RDWCV 16.4 (H) 11.4 - [facility] 13.8 % [facility] LABORATORY MPV 9.2 7.6 - 12.9 [facility] LABORATORY nRBC % Auto 0.0 % [facility] LABORATORY nRBC Abs Auto 0.000 0.000 - [facility] 0.000 [facility] x10(3)[facility] LABORATORY Specimen Anatomical Collection Method Collection Time Receive d Time (Source) Location / / Volume Laterality Blood 01/30/2022 2:12 PM 2 2:37 EDT PM EDT Resulting Agency Comment Spec In Lab Eddi Elizabeth Jr., MD HEMATOLOGY ORDERABLES Performing Organization Address City/State/[place] [address] (ABNORMAL) Differential, Automated (01/30/2022 2:12 PM EDT)Only the most recent of8 resultswithin the time period is included. athologist Signature Neutrophils % 71.8 % [facility] LABORATORY Neutr Abs (ANC) 3.96 1.70 - [facility] 6.10 [facility] x10(3)/[facility] LABORATORY Lymphocytes % 16.3 % [facility] LABORATORY Lymphocytes Abs 0.9 0.9 - 3.2 [facility] x10(3)/[facility] LABORATORY Monocytes % 10.0 % [facility] LABORATORY Monocyte Abs 0.6 0.3 - 0.9 [facility] x10(3)/[facility] LABORATORY Eosinophils % 0.5 % [facility] LABORATORY Eosinophils Abs 0.0 0.0 - 0.4 [facility] x10(3)/[facility] LABORATORY Basophils % 0.5 % [facility] LABORATORY Basophils Abs 0.0 0.0 - 0.1 [facility] x10(3)/[facility] LABORATORY Immature Gran % 0.90 % [facility] LABORATORY Comment: Immature granulocytes(IG's)percentage an d absolute count will include metamyelocytes, myelocytes, and promyelo cytes. Blood smears from CBCs yielding IG's will be scanned manually for concor dance. If this scan disagrees with the automated IG or if promyelocytes are not ed, a manual differential will be performed. Melisa Gran Abs 0.05 (H) 0.00 - 0.04 x10(3)/[facility] LABORATORY Specimen Anatomical Collection Method Collection Time Receive d Time (Source) Location / / Volume Laterality Blood 01/30/2022 2:12 PM 2 2:37 EDT PM EDT Resulting Agency Comment Spec In Lab Eddi Elizabeth Jr., MD HEMATOLOGY ORDERABLES Performing Organization Address City/State/[place] [address] (ABNORMAL) Basic Metabolic Panel (non-fasting) (01/30/2022 2:12 PM EDT)Only the most recent of6 resultswithin the time period is included. P athologist Signature Glucose Lvl 163 65 - 199 [facility] mg/dL [facility] Comment: Diabetes: >=200 mg/dL plus symp toms BUN 30 (H) 10 - 20 mg/dL [facility] LABORATORY Creatinine 1.47 0.80 - 1.50 mg/dL [facility] LABORATORY Sodium 140 135 - 145 mmol/L [facility] LABORATORY Potassium 4.2 3.5 - 5.0 mmol/L [facility] LABORATORY Comment: Please note: ??Patients with WBC >100,00 0 may have falsely elevated Potassium levels. ??For accurate Potassium quantif ication in these patients send serum separator tube (gold top) for subsequent determinations. ??Contact the Clinical Chemistry Laboratory if there are any qu estions. Chloride 101 98 - 107 mmol/L [facility] LABORATORY CO2 28 22 - 31 mmol/L [facility] LABORATORY Anion Gap 11 5 - 15 mmol/L [facility] LABORATORY Calcium 9.2 8.5 - 10.5 mg/dL [facility] LABORATORY Estimated GFR 49 (L) >=60 mL/min/1.73 m?? [facility] LABORATORY Comment: This patient's estimated [...] Organization Address City/State/[place] [address] POCT Glucose (01/30/2022 1:41 PM EDT)Only the most recent of36 resultswithin the time period is included. athologist Signature POC Glucose 148 65 - 199 [facility] mg/dL [facility] Comment: Supplemental ranges: <140 mg/dL before meals <180 mg/dL all other times of the day Specimen Anatomical Collection Method Collection Time Receive d Time (Source) Location / / Volume Laterality Blood 01/30/2022 1:41 PM 2 1:41 EDT PM EDT Vitaliy Sandra Nobles MD POINT OF CARE TEST ORDERABLE S Performing Organization Address City/State/[place] [address] EKG 12 Lead (01/30/2022 [...] 435 ms MUSE SYSTEM (Bezet) Calculated P [place] 41 degrees MUSE SYSTEM Calculated R [place] -27 degrees MUSE SYSTEM Calculated T [place] 104 degrees MUSE SYSTEM INTERPRETATION Normal sinus rhythm MUSE SYSTEM Anterolateral infarct (cited on or before 09-DEC-2021) Abnormal ECG When compared with ECG of 10-DEC-2021 11:17, No significant change was found Confirmed by Gary Perez ([id number]) on 01/30/2022 5:57:5 2 PM Specimen Anatomical [...] - 01/30/2022 2:09 PM ED T ?[facility] ? Cardiac Cathete rization/Intervention Report ? Patient Name: Kushal, Don E. ? Procedure Date: 01/30/2022 ? A #: [id number] ? Primary Physician: Nobles, Vitaliy P ? Case #: [id number] ? File Name: [id number] ? Catheterization Order Number: [id number] ? [facility] ? Final Report [place], [place] ? Patient Name: ? Don E. Stewa rt ? ID#: ?[id number] ? : ?1945 ? Procedure Date: ? January 30, 2022 ? Case #: ? [id number] ? Room: ? 1 ? Case Physician: [...] procedure was Urgent. The indication for ?the cathode builder visit is stable kn own CAD. Chest [...] guiding catheter an d a 3.[address] [facility] [address] ??20 Mhz ?using Manual pullback. ??Imagin g was successful. ??Image quality was good. ?The entire vessel RPDA showed s lisae diffuse atherosclerotic plaque. ? Indication for Intervention: [...] a de fe lesion. ? According to e ACC/AHA classification system, this lesion ? [...] ?? A premounted 2.00 x 26 mm Gruver Teton (TUCKER) ? was deployed wi a maximum [...] Wedelivered along 2.0 x 26 mm ORION Teton ? TUCKER stent and p ositioned it [...] dose administered prior to arrival in the cathode builder. ?Recommended anti-platelet/anti- thrombotic regimen: ?Continue aspirin 81 [...] require ?modification of this regimen. C onsult [facility] Interventional Cardiology for ?questions. ?The 1 year [...] using a 2.0 x 26 mm ORION Teton TUCKER stent. ?This completes the revasculariz ation [...] Signature ProBNP 1,380 (H) <=124 [facility] pg/mL [facility] Specimen Anatomical Collection Method Collection Time Receive d Time (Source) Location / / Volume Laterality Blood 12/25/2021 7:46 AM 8:01 EDT AM EDT Resulting Agency Comment Spec In Lab Zulma Plunkett MD CHEMISTRY ORDERABLES Performing Organization Address City/[facility] [place] [address] SCAN DOC: TELEMETRY STRIPS (12/12/2021 6:00 AM EDT)Only the most recent of10 resultswithin the time period is included. Narrative This result has an attachment that is no t available. Unknown MEDIA MGR SCAN EXT ORDR/RSLT (ABNORMAL) BMP w/fasting Glucose (12/12/2021 4:51 AM EDT)Only the most recent of 4 resultswithin the time period is included. P athologist Signature Glucose 152 (H) 65 - 99 [facility] Fasting mg/dL [facility] Comment: ?Fasting* Glucose Interpretive C [...] of Diabetes Mellitus, Position Statement from the [place] Diabetes Association. ??Diabete s Care, Volume 33, Supplement 1, Jul 2009 BUN 52 (H) 10 - 20 mg/dL [facility] LABORAT[facility] Creatinine 1.72 (H) 0.80 - 1.50 mg/dL [facility] LABOR[facility] Sodium 143 135 - 145 mmol/L [facility] LABORATORY Potassium 3.9 3.5 - 5.0 mmol/L [facility] LABORATORY Comment: Please note: ??Patients with WBC >100,00 0 may have falsely elevated Potassium levels. ??For accurate Potassium quantif ication in these patients send serum separator tube (gold top) for subsequent determinations. ??Contact the Clinical Chemistry Laboratory if there are any qu estions. Chloride 105 98 - 107 mmol/L [facility]OR[facility] CO2 21 (L) 22 - 31 mmol/L [facility] Anion Gap 17 (H) 5 - 15 mmol/L [facility] LABORATORY Calcium 8.9 8.5 - 10.5 mg/dL [facility] LABORATORY Estimated GFR 38 (L) >=60 mL/min/1.73 m?? [facility] LABORATORY Comment: This patient? s [...] Cuevas MD CHEMISTRY ORDERABLES Performing Organization Address [facility] [place] [address] (ABNORMAL) Prothrombin Time (12/12/2021 4:51 AM EDT)Only the most recent of4 resultswithin the time period is included. P athologist Signature PT 14.9 (H) 9.4 - 12.5 [facility] LABORATORY INR 1.3 [facility] LABORATORY Comment: An INR [...] Cuevas MD HEMATOLOGY ORDERABLES Performing Organization Address [facility] [place] [address] Magnesium (12/12/2021 4:51 AM EDT)Only the most recent of5 resultswithin the time period is included. P athologist Signature Magnesium 1.02 0.69 - 1.07 [facility] mmol/L [facility] Specimen Anatomical Collection Method Collection Time Receive d Time (Source) Location / / Volume Laterality Blood 12/12/2021 4:51 AM 5:06 EDT AM EDT Resulting Agency Comment Spec In Lab Iker Cuevas MD CHEMISTRY ORDERABLES Performing Organization Address City/State/[place] [address] COVID-19 PCR (12/11/2021 10:13 AM EDT) Patholo gist Method Time Signature SARS-CoV-2 Not Detected Not Detected BARBARA RNA [facility] LABORATORY Comment: This result should be interpreted [...] diagnosis of COVID-19 is performed using the [employer]NA S-CoV-2 Assay as authorized by the FDA Emergency Use Authorization (EUA). This EUA assay is intended for In-vitro Diagnostic (IVD) use with respiratory sp ecimens such as nasopharyngeal swabs collected from individuals during the ac enterprise phase of infection. This assay is performed based on the instructions for use provided by [employer] and additional guidance provided by CDC and FDA. Testing is performed in the Clinical Genomics and Advanced Technolog y Laboratory within the Department of Pathology and Laboratory Medicine at [facility], certified under the Clinical Laboratory [...] clinical management guidance information are available at [facility] CDC Coronavirus Disease 2019 (COVID-19) webpage under Information fo r Healthcare Professionals (https://www.cdc.gov/coronavirus/2019-nc ov/hcp/index.html) Additional information about this and ot her EUA tests can be found in provider and patient fact sheets at the following FDA website: https://www.fda.gov/medical-devices/catnixpwygf-vvnyfpp-4615-kfpic-97-dqiyrhrwt- dqr-nttvjvgpqziuai-zzvwqsq-devices/rbbbd-hwgxqfpqiav-xcro SARS-Cov-2 RNA Source PLATE WASHER Swab [facility] LABORATORY Specimen (Source) Anatomical Collection Method Collection Time Re ceived Time Location / / Volume Laterality Nasopharyngeal Swab 12/11/2021 10:13 11/23 AM EDT 11:16 AM EDT Comment: Symptoms->Surveillance Resulting Agency Comment Spec In Lab Iker Cuevas MD MICROBIOLOGY - GENERAL ORDER [place] Performing Organization Address City/State/[place] [address] Potassium (12/10/2021 7:46 PM EDT) athologist Signature Potassium 4.2 3.5 - 5.0 [facility] mmol/L [facility] Comment: Please note: ??Patients with [...] Cuevas MD CHEMISTRY ORDERABLES Performing Organization Address City/[facility] [place] [address] (ABNORMAL) Point of Care Blood Gas Historical (12/10/2021 9:04 AM EDT) [facility] Method Time Signature POC pH 7.40 7.35 - [facility] 7.45 [facility] POC PCO2 40 35 - 45 [facility] mmHg [facility] POC PO2 63 (L) 85 - 104 [facility] LABORATORY POC Base Excess 0.0 -3.0 - 3.0 [facility] mmol/L [facility] POC HCO3 24.8 20.0 - [facility] 26.0 [facility] mmol/[facility] LABORATORY POC Sodium 143 135 - 145 [facility] mmol/L [facility] POC Potassium 3.7 3.5 - 5.0 [facility] mmol/L [facility] POC Ionized Ca 1.07 (L) 1.15 - [facility] 1.33 [facility] mmol/[facility] LABORATORY POC Hematocrit 30.0 (L) 40.0 - [facility] 51.0 % [facility] POC Calc Hgb 10.2 (L) 13.7 - [facility] 17.5 g/dL [facility] Comment: The calculation of hemoglobin f rom hematocrit assumes a normal MCHC. POC Bgas Loc CC LAB [facility] LABORATORY Specimen Anatomical Collection Method Collection Time Receive d Time (Source) Location / / Volume Laterality Blood 12/10/2021 9:04 AM 2 EDT 12:00 PM EDT Ifeanyi Truong MD CHEMISTRY ORDERABLES Performing Organization Address City/State/ZIP Code Phon e Number [place] [id number] Heparin (unfractionated) Level (12/10/2021 4:25 AM EDT)Only the most recent of5 resultswithin the time period is included. athologist Signature Heparin UFH 0.69 IU/mL [facility] LABORATORY Comment: Heparin (anti-Xa) levels should [...] Organization Address City/State/[place] [address] (ABNORMAL) Troponin (12/09/2021 6:18 AM EDT)Only the most recent of3 results within the time period is included. athologist [facility] Troponin-T 1.13 (H) 0.00 - [facility] 0.00 ng/mL [facility] Comment: The 99th percentile for Troponin T is le ss than 0.01 ng/mL, any detectable cTnT concentration using this assay should be considered elevated. According to the third universal definit ion of myocardial infarction the following criteria with a clinical prese ntation consistent with acute myocardial ischemia meets the diagnosis for a myocardial infarction (AL). Detection of a rise and/or fall of [...] additional sample may be indicated. Reference: Third Morrison Definition of Myocardial Infarction. Journal of the [place] College of Cardiology 2012;60:1581-98 Specimen Anatomical Collection Method Collection Time Receive d Time (Source) Location / / Volume Laterality Blood 12/09/2021 6:18 AM 2 6:33 EDT AM EDT Resulting Agency Comment Spec In Lab Iker Cuevas MD CHEMISTRY ORDERABLES Performing Organization Address City/[facility]/[place] [address] TSH (12/09/2021 6:18 AM EDT) P athologist Signature TSH 1.60 0.27 - 4.20 [facility] mcIU/mL [facility] Comment: Reference Interval (mcIU/mL): Females: ??First Trimester: 0.23-3.88 ??Second Trimester: 0.22-3.90 ??Third Trimester: 0.44-4.66 Specimen Anatomical Collection Method Collection Time Receive d Time (Source) Location / / Volume Laterality Blood 12/09/2021 6:18 AM 2 6:33 EDT AM EDT Resulting Agency Comment Spec In Lab Iker Cuevas MD CHEMISTRY ORDERABLES Performing Organization Address City/[facility]/[place] [address] (ABNORMAL) Hemoglobin A1c (12/09/2021 6:18 AM EDT) Analysis Performed At Patho logist Time Signature Hemoglobin A1C 7.4 (H) 4.3 - 5.6 [facility] Comment: Reference Range: 4.3 - [...] S67-74 Est Avg Gluc See note mg/dL WHITE [...] with hemoglobinopathies. Additional resources are available on [facility] ADA website. Macario HAMMOND, Ruthann J, Deysi R, et al. ??Tr anslating the A1C assay into estimated average glucose values. ??Diabetes Care 2008:31(8):4690-0970. Specimen Anatomical Collection Method Collection Time Receive d Time (Source) Location / / Volume Laterality Blood Venous Draw / 12/09/2021 6:18 AM 12/10/19 22 Unknown EDT 12:24 PM EDT Resulting Agency Comment Spec In Lab Migdalia BROWN CHEMISTRY ORDERABLES Performing Organization Address City/State/ZIP Code Phon e Number [address] Hepatic Function Panel (12/09/2021 6:18 AM EDT) athologist Signature Total Protein 7.3 6.1 - 8.0 [facility] g/dL [facility] Albumin 4.2 3.2 - 5.2 [facility] g/dL [facility] AST 25 0 - 39 [facility] unit/L [facility] ALT 15 0 - 55 [facility] unit/L [facility] Alk Phos 75 40 - 130 [facility] unit/L [facility] Total 1.1 0.2 - 1.3 [facility] Bilirubin mg/dL [facility] Bili, Direct 0.2 0.0 - 0.3 [facility] mg/dL [facility] Specimen Anatomical Collection Method Collection Time Receive d Time (Source) Location / / Volume Laterality Blood 12/09/2021 6:18 AM 6:33 EDT AM EDT Resulting Agency Comment Spec In Lab Iker Cuevas MD CHEMISTRY ORDERABLES Performing Organization Address City/[facility]/ZIP Code Phon e Number [address] Lipid Panel (Reflex Direct LDL) (12/09/2021 6:18 AM EDT) athologist Signature Chol, Total 105 mg/dL [facility] Comment: Lower Risk: <200 mg/dL Average Risk: 200-239 mg/dL Higher Risk: >xb=039 mg/dL Triglycerides 133 mg/dL [facility] Comment: Average Risk/Lower Risk: <150 mg/dL Borderline High Risk: 150-199 mg/dL High Risk: 200-499 mg/dL Very High Risk: >rn=749 mg/dL HDL 42 mg/dL [facility] LABOR[facility] Comment: Males: ?? Higher Risk: <40 mg/dL Females: ?? Higher Risk: <50 mg/dL LDL Cholesterol 36 mg/dL [facility] Comment: Lowest Risk: <100 mg/dL Lower Risk: 100-129 mg/dL Borderline High Risk: 130-159 mg/dL High Risk: 160-189 mg/dL Very High Risk: >lj=385 mg/dL Chol/HDL Ratio 2.5 ratio [facility] Lipid Interpretation See Note [facility] LABORATORY Comment: Lipid management should be guided by a p atient? s ASCVD risk, goals and preferences. ACC/AHA Guidelines recommend high intens ity statin if clinical ASCVD or LDL greater than or equal to 190 mg/dL. http://TheFamily.com/QQD-TCJ-Goxytrqfi Adults aged 40-75 with LDL 70-189 mg/dL should have their 10 year ASCVD risk estimated with the ACC/AHA ASCVD risk es timator http://tools.acc.org/NCOAI-Zrfe-Hfhcdskn r/ Statin should be discussed if risk [...] Organization Address City/State/[place] [address] XR Chest One View [...] who have questions please contact the health critical care transport nurse that requested your imaging first. ? Narrative [...] ho have questions please contact the health critical care transport nurse that requested your imaging first. Amber Sanches MD IMG DX ORDERABLES (ABNORMAL) BLOOD GAS 2 ARTERIAL (12/09/2021 5:14 AM EDT) Analysis Performed At Patho logist Time Signature pH Art 7.43 7.35 - [facility] 7.45 [facility] pCO2 Art 36 35 - 45 [facility] mmHg [facility] pO2 Art 67 (L) 85 - 104 [facility] LABORATORY HCO3 Art 23.4 20.0 - [facility] 26.0 [facility] mmol/L [facility] BE Art -0.9 -3.0 - 3.0 [facility] mmol/L [facility] Hgb Blood Gas 13.2 (L) 13.7 - [facility] 16.5 g/dL [facility] O2HB Art 91.3 (L) 94.0 - [facility] 97.0 % [facility] COHB Art 0.4 % [facility] Comment: Nonsmokers: 0.5-1.5% COHB Smokers: Variable, but usually less than 10% Toxic: 20-30% COHB Lethal: Greater than 60% COHB METHB Art 0.4 <=1.5 % [facility] Na Whole Blood 138 135 - 145 mmol/L [facility] K Whole Blood 4.1 3.5 - 5.0 mmol/L [facility] Comment: Please note: Patients with WBC >100,000 may have falsely elevated Potassium levels. Contact the Clinical Chemistry L aboratory if there are any questions. ICa Whole Blood 1.09 (L) 1.15 - 1.33 mmol/L [facility] Comment: Note: ??Total bilirubin higher than 20 m g/dL may lead to falsely low ionized calcium. CL Whole Blood 104 98 - 107 mmol/L [facility] Gluc Whole Bld 223 (H) 65 - 199 mg/dL [facility] Comment: Diabetes: >=200 mg/dL plus symp toms. Lactate WB 2.7 (H) 0.5 - 2.2 mmol/L [facility] FIO2 Art 35 % [facility] Flow Art 8.0 LPM [facility] PF Ratio Art 191 [facility] Specimen Anatomical Collection Method Collection Time Receive d Time (Source) Location / / Volume Laterality Blood 12/09/2021 5:14 AM 5:14 EDT AM EDT Iker Cuevas MD CHEMISTRY ORDERABLES Performing Organization Address City/State/[place] [address] COVID-19 PCR (12/08/2021 5:00 PM EDT) [facility] Method Time Signature SARS-CoV-2 Not Detected Not Detected [facility] RNA PCR [facility] Comment: This result should be interpreted [...] using the Simplexa COVID-19 Direct Assay by [employer] marcum as authorized by the FDA [...] Department of Pathology and Laboratory Medicine at [facility], certified under the Clinical Laboratory Improvement Amendmen [...] clinical management guidance information are available at [facility] CDC Coronavirus Disease 2019 (COVID-19) webpage under Information fo r Healthcare Professionals (https://www.cdc.gov/coronavirus/2019-nc ov/hcp/index.html). Additional information about this and ot her EUA tests can be found in provider and patient fact sheets at the following FDA website: https://www.fda.gov/medical-devices/ncdblpyyijz-axgobar-8011-eizgc-33-sjvhaayqw- qiq-zryobbvjwwhjym-zixgwwh-devices/idnoc-nmtykgybhfd-tznm SARS-CoV-2 Source PLATE WASHER Swab [facility] Specimen (Source) Anatomical Collection Method Collection Time Re ceived Time Location / / Volume Laterality Nasopharyngeal Swab 12/08/2021 5:00 12/08 PM EDT 6:03 PM EDT Comment: Symptoms->Surveillance Resulting Agency Comment Spec In Lab Iker Cuevas MD MICROBIOLOGY - GENERAL ORDER [place] Performing Organization Address City/State/[place] [address] Scan Doc: Echo (12/08/2021) [...] Organization Address City/State/ZIP Code Phon e Number MAGDA MAGDA [place], [place] Scan Doc: ECG (12/07/2021) Narrative This result has an attachment that is no t available. 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
--- OUTSIDE RECORDS SUMMARY | 2022-02-16 08:11 | XMS_ITS | Encounter Summary ---
:1945 Author Organization [place] [address] Care Team Providers Name Role Phone Lovely Vicente MD Primary Care Provider Reason for Visit Reason Onset Date Comments Advice Only 01/28/2022 Encounter Details Date Type Department Care Team Description 01/28/2022 Telephone Cardiology at [facility] Chitra Angela, seed [place] [address] Social History Tobacco Use Types Packs/Day [...] Fatima assists patient with medications. Number for yard labor supervisor scheduling given and she will call them to verify this information Meds reviewed. As per our form from yard labor supervisor Eliquis hold for 48 hours prior. Pt [...] 02/19/2022 Office Visit Cardiology Liz Poole PA [facility] [place], [place] [address] (Wo rk) 03/26/2022 Office Visit Cardiology Vitaliy Nobles MD [facility] ER CARDIOLOGY [place], [place] [address] (Wo rk) documented as of this encounter Visit Diagnoses Not on filedocumented in this encounter Care Teams Chicken Cleaner Relationship Specialty Start Date End Date Lovely Vicente MD PCP - General 04/16/[address] [place] [address] documented as of this encounter
--- OUTSIDE RECORDS SUMMARY | 2022-02-16 08:11 | XMS_ITS | Encounter Summary ---
:1945 Author Organization [facility] [place] [address] Care Team Providers Name Role Phone Lovely Vicente MD Primary Care Provider Reason for Visit Auth/Cert Specialty Diagnoses / Procedures Referred By Contact Refer red To Contact Diagnoses ASCVD (arteriosclerotic cardiovascular disease) [I25.10] Vitaliy Nobles MD [facility] Procedures PRO PERC TRLUML CORONARY STENT W/ANGIO ONE ART/BRANCH CARDIAC CATHETERIZATION STENT PLACEMENT-SINGLE MAJOR CORONARY ARTERY OR BRANCH [facility] [place] [address] Referral ID Status Reason Start Date Expiration Date Visits Requ ested Visits Authorized [id number] 1 1 Encounter Details Date Type Department Care Team Description 01/30/2022 Laboratory Lab 3L Katalina ASCVD (arterios clerotic Appointment [facility] cardiovas cular disease) [place] [address] Social History Tobacco Use Types Packs/Day Years [...] Office Visit Cardiology Liz Poole PA [facility] er Cardiology Dept [place], [place] [address] (Wo rk) 03/26/2022 Office Visit Cardiology Vitaliy Nobles MD [facility] CARDIOLOGY [place], [place] [address] (Wo [...] (ABNORMAL) Differential, Automated (01/30/2022 7:19 AM EDT) [facility] gist Method Time Signature Neutrophils % 77.9 % [facility] Neutr Abs (ANC) 5.31 1.70 - [facility] 6.10 [facility] x10(3)/[facility] LABORATORY Lymphocytes % 12.0 % [facility] Lymphocytes Abs 0.8 (L) 0.9 - 3.2 [facility] x10(3)/[facility] LABORATORY Monocytes % 8.1 % [facility] Monocyte Abs 0.6 0.3 - 0.9 [facility] x10(3)/[facility] LABORATORY Eosinophils % 0.4 % [facility] Eosinophils Abs 0.0 0.0 - 0.4 [facility] x10(3)/[facility] LABORATORY Basophils % 0.6 % [facility] Basophils Abs 0.0 0.0 - 0.1 [facility] Immature Gran % 1.00 % [facility] Comment: Immature granulocytes(IG's)percentage an d absolute count will include metamyelocytes, myelocytes, and promyelo cytes. Blood smears from CBCs yielding IG's will be scanned manually for concor dance. If this scan disagrees with the automated IG or if promyelocytes are not ed, a manual differential will be performed. Melisa Gran Abs 0.07 (H) 0.00 - 0.04 x10(3)/[facility] LABORATORY Specimen Anatomical Collection Method Collection Time Receive d Time (Source) Location / / Volume Laterality Blood 01/30/2022 7:19 AM 7:21 EDT AM EDT Resulting Agency Comment Spec In Lab Zulma BROWN HEMATOLOGY ORDERABLES Performing Organization Address City/State/[place] [address] (ABNORMAL) Hemogram (01/30/2022 7:19 AM EDT) Analysis Performed At Patho logist Time Signature WBC 6.8 4.0 - 9.5 [facility] x10(3)/[facility] LABORATORY RBC 4.32 (L) 4.58 - [facility] 5.54 [facility] x10(6)/[facility] LABORATORY Hemoglobin 13.0 (L) 13.7 - [facility] 16.5 g/dL [facility] LABOR[facility]ORY Hematocrit 39.8 (L) 40.5 - [facility] RYAN 48.5 % [facility] MCV 92.1 82.9 - [facility] 93.1 [facility] LABORATORY MCH 30.1 27.5 - [facility] 32.1 pg [facility] MCHC 32.7 32.0 - [facility] RYAN 35.7 g/dL [facility] Platelets 172 145 - 357 [facility] x10(3)/[facility] LABORATORY RDWSD 54.5 (H) 36.0 - [facility] 45.0 [facility] LABORATORY RDWCV 16.2 (H) 11.4 - [facility] RYAN 13.8 % [facility] LABORATORY MPV 9.0 7.6 - 12.9 [facility] LABORATORY nRBC % Auto 0.0 % [facility] LABORATORY nRBC Abs Auto 0.000 0.000 - [facility] 0.000 [facility] x10(3)/[facility] LABORATORY Specimen Anatomical Collection Method Collection Time Receive d Time (Source) Location / / Volume Laterality Blood 01/30/2022 7:19 AM 7:21 EDT AM EDT Resulting Agency Comment Spec In Lab Zulma BROWN HEMATOLOGY ORDERABLES Performing Organization Address City/State/[place] [address] (ABNORMAL) Basic Metabolic Panel (non-fasting) (01/30/2022 7:19 AM EDT) P athologist Signature Glucose Lvl 237 (H) 65 - 199 [facility] mg/dL [facility] Comment: Diabetes: >=200 mg/dL plus symp toms BUN 34 (H) 10 - 20 mg/dL [facility] Creatinine 1.45 0.80 - 1.50 mg/dL [facility] Sodium 141 135 - 145 mmol/L [facility] Potassium 4.7 3.5 - 5.0 mmol/L [facility] Comment: Please note: ??Patients with WBC >100,00 0 may have falsely elevated Potassium levels. ??For accurate Potassium quantif ication in these patients send serum separator tube (gold top) for subsequent determinations. ??Contact the Clinical Chemistry Laboratory if there are any qu estions. Chloride 100 98 - 107 mmol/L [facility] CO2 30 22 - 31 mmol/L [facility] Anion Gap 11 5 - 15 mmol/L [facility] Calcium 9.5 8.5 - 10.5 mg/dL [facility] Estimated GFR 50 (L) >=60 mL/min/1.73 m?? [facility] Comment: This patient's estimated GFR [...] Organization Address City/State/ZIP Code Phon e Number [place] [id number] documented in this encounter Visit Diagnoses Diagnosis ASCVD (arteriosclerotic cardiovascular d isease) Unspecified cardiovascular disease documented in this encounter Care Teams Lombardi Developer Relationship Specialty Start Date End Date Lovely Vicente MD PCP - General 04/16/[address] [place] [address] documented as of this encounter
--- OUTSIDE RECORDS SUMMARY | 2022-02-16 08:11 | XMS_ITS | Encounter Summary ---
:1945 [place] [address] Care Team Providers Name Role Phone Lovely Vicente MD Primary Care Provider Encounter Details Date Type Department Care Team Description 12/25/2021 Office Visit Cardiology at [facility] Liz Poole, Chronic systolic heart [facility] [place] [address] Cardiology Dept [phone] [place], [place] [address] Social History Tobacco Use Types [...] As per DC Summary - Admitted to [facility] on 12/08/21, transferred from [facility], respiratory distress with hypoxia 86% on [...] mg PO daily in place of Lasix. [place] is new for him and he will [...] Antiplatelet (DAPT) Recommendations above ? TTE from [facility] 12/08/21 ?? 07/28/2019 Echocardiogram: SUMMARY: 1. [...] regurgitation present. 07/07/2019 - 07/21/2019 Zio Patch Measuring Machine Tender The patient had a minimum heart rate [...] hyperkalemia 4.9 today 6. Post-op atrial fibrillation [id number] (CHF, HTN, DM, vascular disease, thromboembolism) Eliquis 7. PAD 08/06/2017: Right 1st, 2nd, 3rd toe amputation 08/11/2017: Left??femoral arterial access, RLE??angiogram, Balloon angioplasty of R PT 10/25/2017: right popliteal-pedal bypass at [facility] 8. Hypothyrodism S/p thyroidectomy for goiter Levothyroxine ?? Plan: 1 month follow up with labs Liz Poole PA-C 12/25/2021 documented in this encounter Plan of Treatment Upcoming Encounters Date Type Specialty Care Team Description 02/19/2022 Laboratory Appointment Lab 02/19/2022 Office Visit Cardiology Liz Poole PA [facility] Cardiology Dept [place] [address] (Wo rk) 03/26/2022 Office Visit Cardiology Vitaliy Nobles MD [facility] ER DR CARDIOLOGY [place], [place] [address] ([facility]) Scheduled Orders Name Type Priority Associated Diagnoses Order S chedule Basic Metabolic Panel Lab STAT Chronic systolic he art Expected: 12/31/2021, (non-fasting) failure Expires: 12/26 documented as of this encounter Results (ABNORMAL) pro-Brain Natriuretic Peptide (12/25/2021 7:46 AM EDT) athologist Signature ProBNP 1,380 (H) <=124 [facility] pg/mL [facility] LABORATORY Specimen Anatomical Collection Method Collection Time Receive d Time (Source) Location / / Volume Laterality Blood 12/25/2021 7:46 AM 8:01 EDT AM EDT Resulting Agency Comment Spec In Lab Zulma Plunkett MD CHEMISTRY ORDERABLES Performing Organization Address City/State/[place] [address] (ABNORMAL) Basic Metabolic Panel (non-fasting) (12/25/2021 7:46 AM EDT) athologist Signature Glucose Lvl 272 (H) 65 - 199 [facility] mg/dL [facility] LABORATORY Comment: Diabetes: >=200 mg/dL plus symp toms BUN 62 (H) 10 - 20 mg/dL [facility]ORY Creatinine 1.81 (H) 0.80 - 1.50 mg/dL [facility]OR[facility]ORY Sodium 134 (L) 135 - 145 mmol/L [facility] Potassium 4.9 3.5 - 5.0 mmol/L [facility] Comment: Please note: ??Patients with WBC >100,00 0 may have falsely elevated Potassium levels. ??For accurate Potassium quantif ication in these patients send serum separator tube (gold top) for subsequent determinations. ??Contact the Clinical Chemistry Laboratory if there are any qu estions. Chloride 95 (L) 98 - 107 mmol/L [facility] CO2 28 22 - 31 mmol/L [facility] Anion Gap 11 5 - 15 mmol/L [facility] LABORATORY Calcium 9.4 8.5 - 10.5 mg/dL [facility] Estimated GFR 36 (L) >=60 mL/min/1.73 m?? [facility] [...] Organization Address City/State/[place] [address] documented in this encounter Visit Diagnoses Diagnosis Chronic systolic heart failure documented in this encounter Care Teams Cleaning Professional Relationship Specialty Start Date End Date Lovely Vicente MD PCP - General 04/16/[address] [place] [address] documented as of this encounter
--- OUTSIDE RECORDS SUMMARY | 2022-02-16 08:11 | XMS_ITS | Encounter Summary ---
:1945 [place] [address] Care Team Providers Name Role Phone Lovely Vicente MD Primary Care Provider Encounter Details Date Type Department Care Team Description 12/30/2021 Notes Only [facility], [place] [address] Social History Tobacco Use Types Packs/Day [...] Failure team. DX: HFrEF. Referral placed to [facility] documented in this encounter Plan of Treatment Upcoming Encounters Date Type Specialty Care Team Description 02/19/2022 Laboratory Appointment Lab 02/19/2022 Office Visit Cardiology Liz Poole PA [facility] Cardiology Dept [place], [place] [address] (Wo rk) 03/26/2022 Office Visit Cardiology Vitaliy Nobles MD [facility] ER CARDIOLOGY [place], [place] [address] (Wo rk) documented as of this encounter Visit Diagnoses Not on filedocumented in this encounter Care Teams Civil Engineer In Training Relationship Specialty Start Date End Date Lovely Vicente MD PCP - General 04/16/[address] [place] [address] documented as of this encounter
--- OUTSIDE RECORDS SUMMARY | 2022-02-16 08:11 | XMS_ITS | Encounter Summary ---
:1945 Author Organization [facility] Address [facility] [place] [address] Care Team Providers Name Role Phone Lovely Vicente MD Primary Care Provider Reason for Visit Auth/Cert Specialty Diagnoses / Procedures Referred By Contact Refer red To Contact Diagnoses ASCVD (arteriosclerotic cardiovascular disease) [I25.10] Vitaliy Nobles MD [facility] Procedures PRO PERC TRLUML CORONARY STENT W/ANGIO ONE ART/BRANCH CARDIAC CATHETERIZATION STENT PLACEMENT-SINGLE MAJOR CORONARY ARTERY OR BRANCH [facility] [place] [address] Referral ID Status Reason Start Date Expiration Date Visits Requ ested Visits Authorized [id number] 1 1 Encounter Details Date Type Department Care Team Description 01/30/2022 Surgery Soldering Machine Operator Automatic Asa Coulter MD CARDIAC CATHETERIZATION [facility] [place] [address] [place] [address] [phone] (Wo rk) Social History Tobacco Use Types [...] and Clopidogrel. Please follow up with your emu farm worker in the next 4-6 weeks. We have made a referral to cardiac rehab. Please see the attached instructions regarding care to your right wrist access site. AttachmentsThe following attachments cannot be sent through Care Everywhere. Coronary Angiogram: Post-op (Welsh)documented in this encounter Medications at Time of [...] Murray RN - 01/30/2022 4:54 PM EDT [facility] Short Stay Unit Discharge Note All [...] recent PCI presenting for staged PCI to [facility]. The pt states he has been [...] recent PCI presenting for staged PCI to [facility]. The indications, expected benefits, and potential [...] SSU team Don has history of prior IA and CABG. I had referred him to cardiac rehab at [facility] last month per HF team. He was waiting until this intervention before starting the program. Reviewed managing angina /use of sl nitroglycerin. Given parameters for home exercise. 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 We discussed short walks several times per day. Will send [facility] his discharge summary from this admission. The patient should be contacted by the Program within 1- 2 weeks from discharge. Brief Op Note - Vitaliy Nobles MD - 01/30/2022 10:19 AM EDT Images from the original note were not included. [facility] [place] [address] [address] CORONARY ANGIOGRAM AND PERCUTANEOUS CORONARY INTERVENTION REPORT Patient: Don Mccollum Kushal : 1945 MR number: [id number] Date of Service: 01/30/2022 Collaborating Supervising Physician: Vitaliy Nobles MD Fellow: KEYON Elizabeth INDICATION: [...] a long 2.0 x 26 mm HARDEEP Jolon TUCKER stent and positioned it at the [...] using a 2.0 x 26 mm HARDEEP Jolon TUCKER stent. This completes the revascularization ofall [...] 02/19/2022 Office Visit Cardiology Liz Poole PA [facility] Medical [facility] Cardiology Dept [place], [place] [address] (Wo lissa) 03/26/2022 Office Visit Cardiology Vitaliy Nobles MD [facility] CARDIOLOGY [place], [place] [address] (Mikayla alcaraz) Scheduled Orders Name [...] EDT) athologist Signature Neutrophils % 71.8 % [facility]OR[facility] Neutr Abs (ANC) 3.96 1.70 - [facility] 6.10 [facility] x10(3)/[facility] LABORATORY Lymphocytes % 16.3 % [facility] Lymphocytes Abs 0.9 0.9 - 3.2 [facility] x10(3)/[facility] LABORATORY Monocytes % 10.0 % [facility] Monocyte Abs 0.6 0.3 - 0.9 [facility] x10(3)/[facility] LABORATORY Eosinophils % 0.5 % [facility] Eosinophils Abs 0.0 0.0 - 0.4 [facility] x10(3)/[facility] LABORATORY Basophils % 0.5 % [facility] Basophils Abs 0.0 0.0 - 0.1 [facility] x10(3)/[facility] LABORATORY Immature Gran % 0.90 [...] Address City/State/[place] [address] (ABNORMAL) Hemogram (01/30/2022 2:12 PM EDT) Analysis Performed At Patho logist Time Signature WBC 5.5 4.0 - 9.5 [facility] x10(3)/[facility] LABORATORY RBC 4.30 (L) 4.58 - [facility] 5.54 [facility] x10(6)/[facility] LABORATORY Hemoglobin 12.7 (L) 13.7 - [facility] 16.[facility] g/dL [facility] LAB[facility]ORY Hematocrit 39.4 (L) 40.5 - [facility] 48.5 % [facility] LABOR[facility] MCV 91.6 82.9 - [facility] 93.1 fL [facility] MCH 29.5 27.5 - [facility] 32.1 pg [facility] LAB[facility] MCHC 32.2 32.0 - [facility] 35.7 g/dL [facility] LAB[facility]ORY Platelets 172 145 - 357 [facility] x10(3)/[facility] LABORATORY RDWSD 54.5 (H) 36.0 - [facility] 45.0 [facility] LABORATORY RDWCV 16.4 (H) 11.4 - [facility] 13.8 % [facility] LABORATORY MPV 9.2 7.6 - 12.9 [facility] LABORATORY nRBC % Auto 0.0 % [facility] nRBC Abs Auto 0.000 0.000 - [facility] 0.000 [facility] x10(3)/[facility] LABORATORY Specimen Anatomical Collection Method Collection Time Receive d Time (Source) Location / / Volume Laterality Blood 01/30/2022 2:12 PM 2:37 EDT PM EDT Resulting Agency Comment Spec In Lab Eddi Elizabeth Jr., MD HEMATOLOGY ORDERABLES Performing Organization Address City/State/[place] [address] (ABNORMAL) Basic Metabolic Panel (non-fasting) (01/30/2022 2:12 PM EDT) athologist Signature Glucose Lvl 163 65 - 199 [facility] mg/dL [facility] LABOR[facility]ORY Comment: Diabetes: >=200 mg/dL plus symp toms BUN 30 (H) 10 - 20 mg/dL [facility] LABORATORY Creatinine 1.47 0.80 - 1.50 mg/dL [facility] [...] LABORATORY Calcium 9.2 8.5 - 10.5 mg/dL [facility] [...] Nobles MD CHEMISTRY ORDERABLES Performing Organization Address City/[facility]/ZIP Code Phon e Number [address] POCT Glucose (01/30/2022 1:41 PM EDT) athologist Signature POC Glucose 148 65 - 199 [facility] mg/dL [facility] LABOR[facility]ORY Comment: Supplemental ranges: <140 mg/dL before meals <180 mg/dL all other times of the day Specimen Anatomical Collection Method Collection Time Receive d Time (Source) Location / / Volume Laterality Blood 01/30/2022 1:41 PM 2 1:41 EDT PM EDT Vitaliy Nobles MD POINT OF CARE TEST ORDERABLE S Performing Organization Address City/State/[place] [address] POCT Glucose (01/30/2022 10:48 AM EDT) athologist Signature POC Glucose 193 65 - 199 [facility] mg/dL [facility] LAB[facility]ORY Comment: Supplemental ranges: <140 mg/dL before meals <180 mg/dL all other times of the day Specimen Anatomical Collection Method Collection Time Receive d Time (Source) Location / / Volume Laterality Blood 01/30/2022 10:48 01/30/2022 AM EDT 10:48 AM EDT Vitaliy Sandra Nobles MD POINT OF CARE TEST ORDERABLE S Performing Organization Address City/State/[place] [address] EKG 12 Lead (01/30/2022 10:33 AM EDT) Component Value Ref Range Test Analysis Performed Pathologis t Method Time At Signature Ventricular rate 64 BPM MUSE SYSTEM Atrial Rate 64 BPM MUSE SYSTEM P-R Interval 162 ms MUSE SYSTEM QRS Duration 94 ms MUSE SYSTEM Q-T Interval 422 ms MUSE SYSTEM QTC Calculated 435 ms MUSE SYSTEM (Bezet) Calculated P [place] 41 degrees MUSE SYSTEM Calculated R [place] -27 degrees MUSE SYSTEM Calculated T [place] 104 degrees MUSE SYSTEM INTERPRETATION Normal sinus rhythm MUSE SYSTEM Anterolateral infarct (cited on or before 09-DEC-2021) Abnormal ECG When compared with ECG of 10-DEC-2021 11:17, No significant change was found Confirmed by Gary Perez ([id number]) on 01/30/2022 5:57:5 2 PM Specimen Anatomical Collection Method Collection Time Receive d Time (Source) Location / / Volume Laterality 01/30/2022 10:33 01/30/2022 5:57 AM EDT PM EDT Vitaliy Sandra Nobles MD ECG ORDERABLES Performing Organization Address City/[facility]/ZIP Code Phon e Number MUSE SYSTEM CARDIAC CATHETERIZATION (01/30/2022 10:16 AM EDT) Specimen (Source) Anatomical Location Collection Method / Collectio n Time Received Time / Laterality Volume Narrative CARDIOMAC SYSTEM - 01/30/2022 2:09 PM ED T ?[facility] ? Cardiac Cathete rization/Intervention Report ? Patient Name: Don Fatima Veda. ? Procedure Date: 01/30/2022 ? A #: [id number] ? Primary Physician: Nobles, Vitaliy P ? Case #: [id number] ? File Name: [id number] ? Catheterization Order Number: [id number] ? [facility] ?Soldering Machine Operator [facility] ? Final Report [place], [place] ? Patient Name: ? Don E. Stewa rt ? ID#: ?[id number] ? : ?1945 ? Procedure Date: ? January 30, 2022 ? Case #: ? [id number] ? Room: ? 1 ? Case Physician: [...] procedure was Urgent. The indication for ?the labor gang supervisor visit is stable kn own CAD. [...] guiding catheter an d a 3.[address] ??20 Mhz ?using Manual pullback. ??Imagin [...] A premounted 2.00 x 26 mm Hardeep Jolon (TUCKER) ? was deployed wi th a [...] Wedelivered along 2.0 x 26 mm HARDEEP Jolon ? TUCKER stent and p ositioned it [...] dose administered prior to arrival in the labor gang supervisor. ?Recommended anti-platelet/anti- thrombotic regimen: ?Continue aspirin [...] require ?modification of this regimen. C onsult [facility] Interventional Cardiology for ?questions. ?The 1 year bleeding risk as nusrat culated by the PRECISE DAPT score is High ?risk. ?High Bleeding Risk - Anticoagul ation and DAPT: ?- ??Assess ischemic and bleedin g risks using validated risk predictors ?(e.g. CHADS2-VASC, HAS-BLED, PA ECISE DAPT, DAPT Score) ?- ??Keep anticoagulant [...] using a 2.0 x 26 mm HARDEEP Jolon TUCKER stent. ?This completes the revasculariz ation [...] POC Glucose 212 (H) 65 - 199 [facility] mg/dL [facility] LABOR[facility]ORY Comment: Supplemental ranges: <140 mg/dL before meals <180 mg/dL all other times of the day Specimen Anatomical Collection Method Collection Time Receive d Time (Source) Location / / Volume Laterality Blood 01/30/2022 9:04 AM 2 9:04 EDT AM EDT Vitaliy Nobles MD POINT OF CARE TEST ORDERABLE S Performing Organization Address [facility]/[place] [address] (ABNORMAL) POCT Glucose (01/30/2022 8:10 AM EDT) P athologist Signature POC Glucose 224 (H) 65 - 199 [facility] mg/dL [facility] LAB[facility] Comment: Supplemental ranges: <140 mg/dL before meals <180 mg/dL all other times of the day Specimen Anatomical Collection Method Collection Time Receive d Time (Source) Location / / Volume Laterality Blood 01/30/2022 8:10 AM 2 8:10 EDT AM EDT Vitaliy Nobles MD POINT OF CARE TEST ORDERABLE S Performing Organization Address [facility]/[place] [address] documented in this encounter Visit Diagnoses Diagnosis ASCVD (arteriosclerotic cardiovascular d isease) Unspecified cardiovascular disease 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 ASHD (arteriosclerotic heart disease) Coronary atherosclerosis of unspecified type of vessel, [place] or graft ASCVD (arteriosclerotic cardiovascular d isease) Unspecified cardiovascular disease documented in this encounter Admitting Diagnoses Diagnosis CAD (coronary artery disease) Coronary atherosclerosis of unspecified type of vessel, [place] or graft documented in this encounter Administered [...] Given 02/2022 10:11 AM EDT 100 mcg (POST OFFICE MARKUP CLERK) ONCE PRN, Starting on Wed01/30/22 at 0927, [...] Procedure), Routine niCARdipine (Cardene) (100 mcg/mL) dilution (POST OFFICE MARKUP CLERK) (CANCELED ) 0927 (Given - Provider: Vitaliy [...] (Intra-Procedure) documented in this encounter Care Teams Tinsmith Apprentice Relationship Specialty Start Date End Date Lovely Vicente MD PCP - General 04/16/[address] [place] [address] documented as of this encounter
--- OUTSIDE RECORDS SUMMARY | 2022-02-16 08:11 | XMS_ITS | Encounter Summary ---
:1945 [place] [address] Care Team Providers Name Role Phone Lovely Vicente MD Primary Care Provider Encounter Details Date Type Department Care Team Description 12/24/2021 Orders Only Supervisor Fishing Zulma Finch ASCVD (art eriosclerotic [facility] cardiovascular disease) [facility] [place] [address] [place], [place] [phone] (Work) [phone] Social History Tobacco Use Types Packs/Day Years [...] [facility] er Cardiology Dept [place], [place] [address] (Wo rk) 03/26/2022 Office Visit Cardiology Vitaliy Nobles MD [facility] ER [address] [place], [place] [address] (Wo rk) documented as of this encounter Visit Diagnoses Diagnosis ASCVD (arteriosclerotic cardiovascular d isease) Unspecified cardiovascular disease documented in this encounter Care Teams Tare Worker Relationship Specialty Start Date End Date Lovely Vicente MD PCP - General 04/16/15 [address] [place] [address] documented as of this encounter
--- OUTSIDE RECORDS SUMMARY | 2022-02-16 08:11 | XMS_ITS | Encounter Summary ---
:1945 [place] [address] Care Team Providers Name Role Phone Lovely Vicente MD Primary Care Provider Encounter Details Date Type Department Care Team Description 01/28/2022 Orders Only Irrigation District Manager Zulma Finch ASCVD (art eriosclerotic [facility] cardiovascular disease) [facility] [place] [address] [place], [place] [phone] (Work) [phone] Social History Tobacco Use Types Packs/Day Years [...] Visit Cardiology Liz Poole PA [facility] er Cardiology Dept [place], [place] [address] (Wo rk) 03/26/2022 Office Visit Cardiology Vitaliy Nobles MD [facility] ER [address] [place], [place] [address] (Wo rk) documented as of this encounter Results (ABNORMAL) Basic Metabolic Panel (non-fasting) (01/30/2022 7:19 AM EDT) athologist Signature Glucose Lvl 237 (H) 65 - 199 [facility] mg/dL [facility] LABORATORY Comment: Diabetes: >=200 mg/dL plus symp toms BUN 34 (H) 10 - 20 mg/dL [facility] LABORATORY Creatinine 1.45 0.80 - 1.50 mg/dL [facility] LABORATORY Sodium 141 135 - 145 mmol/L [facility] LABORATORY Potassium 4.7 3.5 - 5.0 mmol/L [place] Anion Gap 11 5 - 15 mmol/L [facility] LABORATORY Calcium 9.5 8.5 - 10.5 mg/dL [facility] LABORATORY Estimated GFR 50 (L) [...] Organization Address City/State/[place] [address] documented in this encounter Visit Diagnoses Diagnosis ASCVD (arteriosclerotic cardiovascular d isease) Unspecified cardiovascular disease documented in this encounter Care Teams Drier Tender Relationship Specialty Start Date End Date Lovely Vicente MD PCP - General 04/16/[address] [place] [address] documented as of this encounter
--- OUTSIDE RECORDS SUMMARY | 2022-02-16 08:11 | XMS_ITS | Encounter Summary ---
:1945 Author Organization [facility] [place] [address] Care Team Providers Name Role Phone Lovely Vicente MD Primary Care Provider Encounter Details Date Type Department Care Team Description 12/12/2021 Telephone Cardiology [place] [facility] Barbara [place]era, [place] [address] Social History Tobacco Use Types Packs/Day [...] - 12/12/2021 11:36 AM EDT RTC to [employer] [facility] regarding pharmacists questions as to whether the [...] Liz Poole PA [facility] Cardiology Dept [place], [place] [address] (Wo rk) 03/26/2022 Office Visit Cardiology Vitaliy Nobles MD [facility] ER CARDIOLOGY [place], [place] [address] (Wo rk) documented as of this encounter Visit Diagnoses Not on filedocumented in this encounter Care Teams [employer] Footballer Relationship Specialty Start Date End Date Lovely Vicente MD PCP - General 04/16/[address] [place] [address] documented as of this encounter
--- OUTSIDE RECORDS SUMMARY | 2022-02-16 08:11 | XMS_ITS | Encounter Summary ---
:1945 Author Organization [facility] [place] [address] Care Team Providers Name Role Phone Lovely Vicente MD Primary Care Provider Reason for Visit Reason Onset Date Comments Medication Refill 12/12/2021 [place] Encounter Details Date Type Department Care Team Description 12/12/2021 Refill Cardiology at [facility] Janneth Padilla, Medication Refill [facility] STEPHANIE ([place]) [place] [phone] CARDIOLOGY DEPT. [place], [place] [address] (Wo rk) Social History Tobacco [...] [facility] er Cardiology Dept [place], [place] [address] (Wo rk) 03/26/2022 Office Visit Cardiology Vitaliy Nobles MD [facility] CARDIOLOGY [place], [place] [address] (Wo rk) documented as of this encounter Visit Diagnoses Diagnosis Chronic systolic heart failure documented in this encounter Care Teams Housekeeping Room Attendant Relationship Specialty Start Date End Date Lovely Vicente MD PCP - General 04/16/[address] [place] [address] documented as of this encounter
--- OUTSIDE RECORDS SUMMARY | 2022-02-16 08:11 | XMS_ITS | Encounter Summary ---
:1945 Author Organization [place] [address] Care Team Providers Name Role Phone Lovely Vicente MD Primary Care Provider Encounter Details Date Type Department Care Team Description 12/25/2021 Laboratory Appointment Lab 3L [facility] systolic [facility] [place] [id number] Social History Tobacco Use Types Packs/Day Years [...] [facility] er Cardiology Dept [place], [place] [address] (Wo rk) 03/26/2022 Office Visit Cardiology Vitaliy Nobles MD [facility] CARDIOLOGY [place], [place] [address] (Wo rk) documented as of [...] (ABNORMAL) Differential, Automated (12/25/2021 7:46 AM EDT) [facility] Method Time Signature Neutrophils % 82.6 % [facility] Neutr Abs (ANC) 9.37 (H) 1.70 - [facility] 6.10 [facility] x10(3)/[facility] L LABORATORY Lymphocytes % 7.1 % [facility] Lymphocytes Abs 0.8 (L) 0.9 - 3.2 [facility] x10(3)/[facility] LABORATORY Monocytes % 8.8 % [facility] Monocyte Abs 1.0 (H) 0.3 - 0.9 [facility] x10(3)/[facility] LABORATORY Eosinophils % 0.4 % [facility] Eosinophils Abs 0.0 0.0 - 0.4 [facility] x10(3)/[facility] LABORATORY Basophils % 0.4 % [facility] Basophils Abs 0.0 0.0 - 0.1 [facility] x10(3)/[facility] LABORATORY Immature Gran % 0.70 % [facility] Comment: Immature granulocytes(IG's)percentage an d [...] Organization Address City/State/[place] [address] (ABNORMAL) Hemogram (12/25/2021 7:46 AM EDT) Analysis Performed At Patho logist Time Signature WBC 11.4 (H) 4.0 - 9.5 [facility] x10(3)/[facility] LABORATORY RBC 4.23 (L) 4.58 - [facility] x10(6)/[facility] LABORATORY Hemoglobin 12.3 (L) 13.7 - [facility] 16.5 g/dL [facility] Hematocrit 37.7 (L) 40.5 - [facility] 48.5 % [facility] MCV 89.1 82.9 - [facility] LABORATORY MCH 29.1 27.5 - [facility] 32.1 pg [facility] MCHC 32.6 32.0 - [facility] 35.7 g/dL [facility] Platelets 215 145 - 357 [facility] x10(3)/[facility] LABORATORY RDWSD 49.8 (H) 36.0 - [facility] RYAN 45.0 [facility] LABORATORY RDWCV 15.2 (H) 11.4 - [facility] RYAN 13.8 % [facility] MPV 9.2 7.6 - 12.9 [facility] LABORATORY nRBC % Auto 0.0 % [facility] nRBC Abs Auto 0.000 0.000 - [facility] RYAN 0.000 [facility] x10(3)/[facility] LABORATORY Specimen Anatomical Collection Method Collection Time Receive d Time (Source) Location / / Volume Laterality Blood 12/25/2021 7:46 AM 2 8:01 EDT AM EDT Resulting Agency Comment Spec In Lab Liz BROWN HEMATOLOGY ORDERABLES Performing Organization Address City/State/[place] [address] (ABNORMAL) Basic Metabolic Panel (non-fasting) (12/25/2021 7:46 AM EDT) P athologist Signature Glucose Lvl 272 (H) 65 - 199 [facility] mg/dL [facility] Comment: Diabetes: >=200 mg/dL plus symp toms BUN 62 (H) 10 - 20 mg/dL [facility] Creatinine 1.81 (H) 0.80 - 1.50 mg/dL [facility] Sodium 134 (L) 135 - 145 mmol/L [facility] Potassium 4.9 3.5 - 5.0 mmol/L [facility] Comment: Please note: ??Patients with WBC >100,00 0 may have falsely elevated Potassium levels. ??For accurate Potassium quantif ication in these patients send serum separator tube (gold top) for subsequent determinations. ??Contact the Clinical Chemistry Laboratory if there are any qu estions. Chloride 95 (L) 98 - 107 mmol/L [facility] CO2 28 22 - 31 mmol/L [facility] Anion Gap 11 5 - 15 mmol/L [facility] Calcium 9.4 8.5 - 10.5 mg/dL [facility] Estimated GFR 36 (L) >=60 mL/min/1.73 m?? [facility] Comment: This patient? s estimated [...] Organization Address City/State/[place] [address] (ABNORMAL) pro-Brain Natriuretic Peptide (12/25/2021 7:46 AM EDT) P athologist Signature ProBNP 1,380 (H) <=124 [facility] pg/mL [facility] Specimen Anatomical Collection Method Collection Time Receive d Time (Source) Location / / Volume Laterality Blood 12/25/2021 7:46 AM 2 8:01 EDT AM EDT Resulting Agency Comment Spec In Lab Zulma Plunkett MD CHEMISTRY ORDERABLES Performing Organization Address City/State/[place] [address] documented in this encounter Visit Diagnoses Diagnosis Chronic systolic heart failure documented in this encounter Care Teams Youth Teacher Relationship Specialty Start Date End Date Lovely Vicente MD PCP - General 04/16/[address] [place] [address] documented as of this encounter
--- OUTSIDE RECORDS SUMMARY | 2022-02-16 08:11 | XMS_ITS | Encounter Summary ---
:1945 Author Organization [facility] [place] [address] Care Team Providers Name Role Phone Lovely Vicente MD Primary Care Provider Encounter Details Date Type Department Care Team Description 12/24/2021 Telephone Public Health at [facility] [place] [address] Social History Tobacco Use Types Packs/Day [...] 02/19/2022 Office Visit Cardiology Liz Poole PA [facility] Cardiology Dept [place], [place] [address] (Wo rk) 03/26/2022 Office Visit Cardiology Vitaliy Nobles MD [facility] CARDIOLOGY [place], [place] [address] (Wo rk) documented as of this encounter Visit Diagnoses Not on filedocumented in this encounter Care Teams Slab Off Mill Tender Relationship Specialty Start Date End Date Lovely Vicente MD PCP - General 04/16/[address] [place] [address] documented as of this encounter
--- OUTSIDE RECORDS SUMMARY | 2022-02-16 08:12 | XMS_ITS | Encounter Summary ---
:1945 Author Organization [facility] [place] [address] Care Team Providers Name Role Phone Lovely Vicente MD Primary Care Provider Reason for Referral Consultation (Routine) - Closed Specialty Diagnoses / Referred By Contact Referred To Contact Procedures Cardiac Rehabilitation Diagnoses Acute HFrEF (heart failure with reduced ejection fraction) Janneth Padilla, Cardiac Rehab, [address] [place], [place] CARDIOLOGY DEPT. [id number] [place] [address] Referral ID Status Reason Start Date Expiration Date Visits V isits Requested Authorized [id number] Closed Consult, 12/12/2021 12/12/2022 36 36 Test & Treat Reason for Visit Auth/Cert Specialty Diagnoses / Procedures Referred By Contact Refer red To Contact Diagnoses NSTEMI Procedures emerg ipi Referral ID Status Reason Start Date Expiration Date Visits Requ ested Visits Authorized [id number] 1 1 Encounter Details Date Type Department Care Team Description 12/08/2021 - Hospital Encounter Intermediate Cardiac Iker Cuevas MD [facility] [place] [address] Non-ST elevation myocardial infarction ( NSTEMI); 12/12/2021 Care Unit Ifeanyi Rene MD [facility] [place] [address] ST elevation myocardial infarction (STEM I), unspecified artery; [facility] Acute HFr EF (heart failure with reduced ejection fraction) [place] [address] Social History Tobacco Use Types Packs/Day Years [...] Don Fatima Patient Age: 76 y.o. Language: Mohawk Race: White Ethnicity: Not nor Admit date: [...] Peter PA-C Kelly LaFlamme PA-C Cardiovascular Medicine [phone] Discharge Diagnoses (Hospital Problems) and Secondary Diagnoses [...] 3.75 guiding catheter and a 3.5 Fr [place] [facility] [place] 20 Mhz using Manual pullback. Imaging was successful. Image quality was good. The ostial LCX showed moderate diffuse atherosclerotic plaque with scattered three quadrant calcification. Measurements were performed after pre-dilation. Post Intervention: The stent was well expanded and apposed. Intravascular Ultrasound was performed in the distal LM using a 7 Fr EBU 3.75 guiding catheter and a 3.5 Fr [place] [facility] [place] 20 Mhz using Manual pullback. Imaging was [...] may require modification of this regimen. Consult [facility] Interventional Cardiology for questions. The 1 year [...] vascular congestion and cardiomegaly. ?? TTE from [facility] 12/08/21 ? Prior Cardiac Studies: TTE [...] prior thyroidectomy in 2012 who presented to [facility] with 1 week progressing breathlessness with [...] 03/2021 with Liz Poole PA-C. ?? At [facility], respiratory distress with hypoxia 86% on [...] mg PO daily in place of lasix. Huson is new for him and he will have a BMP checked on 12/[address] Cuevas spoke with the patient's and told her that him drinking too much water and diet drinks did not cause his DC. This is what his thought was the [...] to be ~$24/mo; affordable per patient. Post [facility] he was started on Eliquis. He [...] appointments: During 8am-5pm Wednesday through Wednesday call [phone] to speak with a nurse in the cardiology clinic All other times call [phone] and ask to speak to the wellness program coordinator sound controller. Return to work: One week Driving: No driving for 48 hours after catheterization. Follow up Appointments: PCP Lovely Vicente MD [phone] to see patient at the end of December for annual check up. Patient to see Dr. Lorenzana at 1120 am at December 19 for a post hospital check up. Nut Grinder Dr. De Oliveira to see you in [facility]. Left a message for office to set a date and time. Please call [phone] Nobles to see the patient for a same day cath in 2-3 weeks from now. Office to call with a date and time. For questions please call [phone] Home oxygen therapy: N/A Arrangements for VNA/home care: none Future Appointments and Orders Future Orders Complete By Expires Basic Metabolic Panel (non-fasting) [LAB15 Custom] 12/19/2021 (Approximate) 12/12/2022 Process Instructions: INCLUDES: Calcium, BUN, Creat, GFR, Glucose, Lytes Scheduling Instructions: Comments: Questions: Referral to Cardiac Rehab [[id number] Custom] As directed Process Instructions: If no [...] appointments: During 8am-5pm Wednesday through Wednesday call [phone] to speak with a nurse in the cardiology clinic All other times call [phone] and ask to speak to the wellness program coordinator sound controller. Return to work: One week Driving: No driving for 48 hours after catheterization. Follow up Appointments: PCP Lovely Vicente MD [phone] to see patient at the end of December for annual check up. Patient to see Dr. Lorenzana at 1120 am at December 19 for a post hospital check up. Nut Grinder Dr. De Oliveira to see you in [facility]. Left a message for office to set a date and time. Please call [phone] Nobles to see the patient for a same day cath in 2-3 weeks from now. Office to call with a date and time. For questions please call [phone] Home oxygen therapy: N/A Arrangements for VNA/home [...] Progress Note Patient Name: Don Fatima Service: HYDROGEN TREATER / PA Responsible Attending: Ifeanyi Truong MD [...] was given Lasix 80mg IV x1 in [facility] laboratory. Tolerated procedure well. Home today at [...] pulmonary vascular congestion and cardiomegaly. TTE from [facility] 12/08/21 Prior Cardiac Studies: TTE 07/28/2019 [...] with MD Janneth Neville PA 12/12/2021 Pager [phone] Associated attestation - Ifeanyi Truong MD - [...] ratio for each meal) Desirae Jett APRN [facility] Endocrinology Diabetes Management Pager [phone] 20 minutes of this 35 minute visit [...] Progress Note Patient Name: Don Fatima Service: HYDROGEN TREATER / PA Responsible Attending: Iker Cuevas MD [...] + trop. Known CAD with hx of DC and CABG. DM. MARIA VICTORIA.ICM. ??? ASHD [...] was given Lasix 80mg IV x1 in [facility]. Tolerated procedure well. Review of Systems: [...] TROPONINT 1.13* 0.92* 0.89* Pertinent Radiographic/Diagnostic Results: R/[facility] 12/10/21 Hemodynamics: Right Heart Pressures Resting: [...] pulmonary vascular congestion and cardiomegaly. TTE from [facility] 12/08/21 Prior Cardiac Studies: TTE 07/28/2019 [...] and answered his questions. Iker Cuevas MD [facility] Total time spent on review of records prior to visit, face to face time with patient during visit, documentation, and coordination of care with other clinicians: 25 minutes. . Iker Cuevas MD - 12/10/2021 12:30 PM EDT Images from the original note were not included. Inpatient Cardiology Progress Note Patient Name: Don Fatima Service: HYDROGEN TREATER / PA Responsible Attending: Iker Cuevas MD Reason for continued hospitalization: NSTEMI- s/p R/LHC- PCW 27, occluded SVGs s/p PCI to ostial LCX ADHF and hypoxia- IV diuresis Active Problems: Active Hospital Problems Diagnosis ??? Admitted with 2 days of sob, hypoxemia, and + trop. Known CAD with hx of DC and CABG. DM. MARIA VICTORIA.ICM. ??? ASHD [...] was given Lasix 80mg IV x1 in [facility] laboratory. Tolerated procedure well. Review of Systems: [...] TROPONINT 1.13* 0.92* 0.89* Pertinent Radiographic/Diagnostic Results: R/[facility] 12/10/21 Hemodynamics: Right Heart Pressures Resting: [...] pulmonary vascular congestion and cardiomegaly. TTE from [facility] 12/08/21 Prior Cardiac Studies: TTE 07/28/2019 [...] Discussed with MD Migdalia Peter PA-C Pager #[phone] 12/10/2021 Cardiology Attending Note I have seen [...] updated and given pictures. Iker Cuevas MD [facility] Total time spent on review of records prior to visit, face to face time with patient during visit, documentation, and coordination of care with other clinicians: 35 minutes. Iker Cuevas MD - 12/09/2021 7:28 AM EDT Images from the original note were not included. Inpatient Cardiology Progress Note Patient Name: Don Fatima Service: HYDROGEN TREATER / PA Responsible Attending: Iker Cuevas MD Reason for continued hospitalization: NSTEMI- awaiting R/LHC ADHF and hypoxia- IV diuresis, R/LHC Active Problems: Active Hospital Problems Diagnosis ??? Admitted with 2 days of sob, hypoxemia, and + trop. Known CAD with hx of DC and CABG. DM. MARIA VICTORIA.ICM. ??? ASHD [...] pulmonary vascular congestion and cardiomegaly. TTE from [facility] 12/08/21 Prior Cardiac Studies: TTE 07/28/2019 [...] Discussed with MD Migdalia Peter PA-C Pager #[phone] 12/09/2021 Cardiology Attending Note I have seen and examined the patient. I agree with the findings above. Developed CHF early this am despite getting more iv lasix last evening. Feeling better now. INR > 2. Lungs still wet at base. Echo at [facility] showed EF 35% with mild mod MR slightly lower than last value here. -vit K 2.5 orally to facilitate correction of INR- this will take 12-24 hours to take effect -furosemide 80 mg iv now -postpone right and left heart cath until tomorrow given INR and ADHF -increase statin to achieve LDL < 70 -CPAP tonight Iker Cuevas MD [facility] Total time spent on review of [...] + trop. Known CAD with hx of DC and CABG. DM. MARIA VICTORIA.ICM. ??? ASHD [...] prior thyroidectomy in 2012 who presented to [facility] with 1 week progressing breathlessness with [...] visit 03/2021 with Liz Poole PA-C. At [facility], respiratory distress with hypoxia 86% on [...] [facility] OR ??? PRO AMPUTATION FOOT, TRANSMETATARSAL Right 08/09/2017 AMPUTATION, TRANSMETATARSAL (WRVU 12.71) performed by Yonathan Smith MD at [facility] OR ??? PRO CABG, ARTERIAL, SINGLE N/A 07/07/2017 @CABG, USING ARTERIAL GRAFT;SINGLE ARTERIAL GRAFT (WRVU 33.75) performed by Yuan Retana MD at [facility] OR ??? PRO CABG, ARTERY-VEIN, TWO N/A 07/07/2017 @CABG, TWO VENOUS GRAFTS & ARTERIAL GRAFT (WRVU 7.93) performed by Yuan Retana MD at [facility] OR ??? PRO COLONOSCOPY, REMV LESN, SNARE 01/16/2014 COLONOSCOPY, POLYPECTOMY, REMOVAL LESION BY SNARE performed by Nohemi Jaimes MD at [facility] ENDOSCOPY ??? PRO DRESSING CHANGE UNDER ANESTHESIA Right 08/11/2017 (MSURG) DRESSING CHANGE (FOR OTHER THAN IVAN) UNDER ANES. (WRVU 0.86) performed by Lamar Smith MD at [facility] OR ??? PRO ENDOSCOPY W/VIDEO-ASST VEIN HARVEST, CABG Right 07/07/2017 ENDOSCOPIC HARVEST VEIN(S) FOR CABG (WRVU 0.31) performed by Yuan Retana MD at [facility] MAIN OR ??? PRO THYROIDECTOMY 03/28/2013 THYROIDECTOMY, TOTAL OR COMPLETE performed by Manny Mcknight MD at [facility] OR Significant Family History: Family History Problem [...] (H) 65 - 199 mg/dL Labs at [facility] 12/08/2021-troponin I 8004 (UN L <60), [...] Monitor for ADRs. Trend troponins. Admission EKG. [facility] 12/09; consented. TTE. Telemetry monitoring, daily [...] code #Diet-carb control; n.p.o. after midnight for [facility] #DVT prophy- heparin infusion #GI prophy- PPI Discussed with MD Morgan Peter PA-C APP2 pager [phone] 12/08/2021 Cardiology Attending Note I have seen [...] is type 1 due to graft or levelock coronary stenosis vs acute injury from CHF. 3. PAF: currrently in NSR. Have replaced warfarin with heparin 4. PAD: stable 5. DM: stable 6. CKD: will monitor and minimize contrast. Pt very appreciative of Dr. Yuan Retana's care in 2018. Will let him know patient is here. Iker Cuevas MD [facility] documented in this encounter Miscellaneous Notes [...] Type: *No Product type* / Secondary Insurance: [employer] Prescription Coverage: Yes This plan was formulated [...] cardiac cath without complications. PONCHO SullivanC Pager #[phone] 12/10/2021 Initial Assessments - Nick Georges RN [...] COVID test: Lab Results Component Value Date [id number] Not Detected 12/08/2021 Past medical History: Past [...] spouse would be surrogate decision maker per [place] surrogate decision making law. (Only good for 180 days) Any patient receiving care at [facility] must abide by [place] law. The hierarchy for surrogate decision making [...] (i) The agent with financial power of traffic law attorney or a conservator appointed in accordance [...] - standard, cane - straight Home Address: [address] [place] [address] [place] [address] Social & Family Supports: All names listed below confirmed with patient as current and correct Extended Emergency Contact Information Primary Emergency Contact: Kisha Fatima Address: [address] [place] [address] [place] [address] [facility] Mobile Relation: Spouse Secondary Emergency Contact: Elba Swenson Address: [place], [place] [address] [place] [address] Mobile Relation: Child Current Care Provided by: [...] Type: *No Product type* / Secondary Insurance: [employer] [facility] Prescription Coverage: Yes Preferred Pharmacy: [facility] [address] [address] - [place], [place] - [address] [place] [id number] [place] Status: Patient is a : unable to assess Primary Care Provider: Lovely Vicente MD [phone] Patient/Caregiver Goals of Treatment: Get out of here Potential Needs for Transition of Care: none Agency Referrals: none patient has used [facility] in the past Transportation: no concerns Transportation Anticipated: family or friend will provide Concerns to be Addressed: patient refuses services, discharge planning Assessment: Patient is admitted to [facility] Service pager [phone] for 76 y.o.??male??with h/o??CAD s/p 3vCABG (THOMPSON-LAD, [...] status on current unit. Nick Georges RN casing flusher, Office of Care Management Pager: [phone] Brief Op Note - Vitaliy Nobles MD - 12/10/2021 8:31 AM EDT Images from the original note were not included. [facility] [place] [address] CORONARY ANGIOGRAM AND PERCUTANEOUS CORONARY INTERVENTION REPORT Patient: Don Fatima : 1945 MR number: [id number] Date of Service: 12/10/2021 Technical Systems Architect: Vitaliy Nobles MD Fellow: [place] MD [...] and to provide a review of terminal clerk diabetes care. Diabetes History: Don Fatima has had diabetes for 10 years. He has been on insulin for the last several years andis managed by his PCP. Lives in [place], [place] with his . States that he [...] 5 gm carb ratio for each meal) intermediate diabetes care: Medications - Outpatient treatment regimen recommendations pending based on the hospital course. Monitoring - continue BG tid ac & hs Diet - low fat/low carb diet Exercise - weight-bearing exercise 30 min/day, as tolerated Thank you for allowing us to provide care for your patient Desirae Johnie QUINONES Endocrinology Pager [phone] 70 minutes of this 80 minute visit [...] + trop. Known CAD with hx of DC and CABG. DM. MARIA VICTORIA.ICM. ??? ASHD [...] to remain on Med/Surg floor, please page [phone] for any further questions or concerns. LANDON [...] for further details. STEPHANIE Rebolledo 12/08/2021 Pager [phone] documented in this encounter Plan of Treatment Upcoming Encounters Date Type Specialty Care Team Description 02/19/2022 Laboratory Appointment Lab 02/19/2022 Office Visit Cardiology Liz Poole PA [facility] er Cardiology Dept [place], [place] [address] (Wo rk) 03/26/2022 Office Visit Cardiology Vitaliy Nobles MD [facility] CARDIOLOGY [place], [place] [address] (Wo rk) Scheduled Referrals Name [...] POC Glucose 215 (H) 65 - 199 [facility] mg/dL [facility] Comment: Supplemental ranges: <140 mg/dL before meals <180 mg/dL all other times of the day Specimen Anatomical Collection Method Collection Time Receive d Time (Source) Location / / Volume Laterality Blood 12/12/2021 7:42 AM 7:42 EDT AM EDT Ifeanyi Truong MD POINT OF CARE TEST ORDERABLE S Performing Organization Address City/State/[place] [address] (ABNORMAL) Differential, Automated (12/12/2021 4:51 AM EDT) athologist Signature Neutrophils % 75.4 % [facility] Neutr Abs (ANC) 5.95 1.70 - [facility] 6.10 [facility] x10(3)/[facility] LABORATORY Lymphocytes % 12.2 % [facility] Lymphocytes Abs 1.0 0.9 - 3.2 [facility] x10(3)/[facility] LABORATORY Monocytes % 9.5 % [facility] Monocyte Abs 0.8 0.3 - 0.9 [facility] x10(3)/[facility] LABORATORY Eosinophils % 1.8 % [facility] Eosinophils Abs 0.1 0.0 - 0.4 [facility] x10(3)/[facility] LABORATORY Basophils % 0.5 % [facility] Basophils Abs 0.0 0.0 - 0.1 [facility] x10(3)/[facility] LABORATORY Immature Gran % 0.60 % [facility] [...] Organization Address City/State/ZIP Code Phon e Number [place] [id number] (ABNORMAL) Hemogram (12/12/2021 4:51 AM EDT) Analysis Performed At Patho logist Time Signature WBC 7.9 4.0 - 9.5 [facility] x10(3)/[facility] LABORATORY RBC 4.19 (L) 4.58 - [facility] 5.54 [facility] x10(6)/[facility] LABORATORY Hemoglobin 12.1 (L) 13.7 - [facility] g/dL [facility] Hematocrit 36.7 (L) 40.5 - [facility] 48.5 % [facility] MCV 87.6 82.9 - [facility] 93.1 [facility] LABORATORY MCH 28.9 27.5 - [facility] SU 32.1 pg [facility] MCHC 33.0 32.0 - [facility] 35.7 g/dL [facility] Platelets 231 145 - 357 [facility] x10(3)/[facility] LABORATORY RDWSD 47.2 (H) 36.0 - [facility] 45.0 [facility] LABORATORY RDWCV 14.6 (H) 11.4 - [facility] SU 13.8 % [facility] MPV 9.5 7.6 - 12.9 [facility] LABORATORY nRBC % Auto 0.0 % [facility] nRBC Abs Auto 0.000 0.000 - [facility] 0.000 [facility] x10(3)/[facility] LABORATORY Specimen Anatomical Collection Method Collection Time Receive d Time (Source) Location / / Volume Laterality Blood 12/12/2021 4:51 AM 2 5:06 EDT AM EDT Resulting Agency Comment Spec In Lab Bijan Sun MD HEMATOLOGY ORDERABLES Performing Organization Address City/[facility] [place] [address] (ABNORMAL) Prothrombin Time (12/12/2021 4:51 AM EDT) P athologist Signature PT 14.9 (H) 9.4 - 12.5 [facility] LABORATORY INR 1.3 [facility] [...] Cuevas MD HEMATOLOGY ORDERABLES Performing Organization Address City/[facility] [place] [address] (ABNORMAL) BMP w/fasting Glucose (12/12/2021 4:51 AM EDT) P athologist Signature Glucose 152 (H) 65 - 99 [facility] Fasting mg/dL [facility] Comment: ?Fasting* Glucose Interpretive C [...] of Diabetes Mellitus, Position Statement from the [employer] [employer]. ??Diabete s Care, Volume 33, Supplement 1, Jul 2009 BUN 52 (H) 10 - 20 mg/dL [facility] Creatinine 1.72 (H) 0.80 - 1.50 mg/dL [facility] Sodium 143 135 - 145 mmol/L [facility] Potassium 3.9 3.5 - 5.0 mmol/L [facility] [...] Gap 17 (H) 5 - 15 mmol/L [facility] Calcium 8.9 8.5 - 10.5 mg/dL [facility] Estimated GFR 38 (L) [...] Organization Address City/State/ZIP Code Phon e Number [address] Magnesium (12/12/2021 4:51 AM EDT) athologist Signature Magnesium 1.02 0.69 - 1.07 [facility] mmol/L [facility] Specimen Anatomical Collection Method Collection Time Receive d Time (Source) Location / / Volume Laterality Blood 12/12/2021 4:51 AM 2 5:06 EDT AM EDT Resulting Agency Comment Spec In Lab Iker Cuevas MD CHEMISTRY ORDERABLES Performing Organization Address City/[facility]/ZIP Code Phon e Number [address] POCT Glucose (12/12/2021 3:43 AM EDT) athologist Signature POC Glucose 138 65 - 199 [facility] mg/dL [facility] Comment: Supplemental ranges: <140 mg/dL before meals <180 mg/dL all other times of the day Specimen Anatomical Collection Method Collection Time Receive d Time (Source) Location / / Volume Laterality Blood 12/12/2021 3:43 AM 2 3:43 EDT AM EDT Iker Cuevas MD POINT OF CARE TEST ORDERABLE S Performing Organization Address City/State/[place] [address] POCT Glucose (12/11/2021 11:44 PM EDT) athologist Signature POC Glucose 124 65 - 199 [facility] mg/dL [facility] Comment: Supplemental ranges: <140 mg/dL before meals <180 mg/dL all other times of the day Specimen Anatomical Collection Method Collection Time Receive d Time (Source) Location / / Volume Laterality Blood 12/11/2021 11:44 12/11/2021 PM EDT 11:44 PM EDT Iker Cuevas MD POINT OF CARE TEST ORDERABLE S Performing Organization Address City/State/[place] [address] (ABNORMAL) POCT Glucose (12/11/2021 8:12 PM EDT) athologist Signature POC Glucose 200 (H) 65 - 199 [facility] mg/dL [facility] Comment: Supplemental ranges: <140 mg/dL before meals <180 mg/dL all other times of the day Specimen Anatomical Collection Method Collection Time Receive d Time (Source) Location / / Volume Laterality Blood 12/11/2021 8:12 PM 2 8:12 EDT PM EDT Iker Cuevas MD POINT OF CARE TEST ORDERABLE S Performing Organization Address City/[facility]/[place] [address] (ABNORMAL) POCT Glucose (12/11/2021 6:50 PM EDT) athologist Signature POC Glucose 245 (H) 65 - 199 [facility] mg/dL [facility] Comment: Supplemental ranges: <140 mg/dL before meals <180 mg/dL all other times of the day Specimen Anatomical Collection Method Collection Time Receive d Time (Source) Location / / Volume Laterality Blood 12/11/2021 6:50 PM 2 6:50 EDT PM EDT Iker Cuevas MD POINT OF CARE TEST ORDERABLE S Performing Organization Address City/State/[place] [address] (ABNORMAL) POCT Glucose (12/11/2021 4:00 PM EDT) athologist Signature POC Glucose 383 (H) 65 - 199 [facility] mg/dL [facility] Comment: Supplemental ranges: <140 mg/dL before meals <180 mg/dL all other times of the day Specimen Anatomical Collection Method Collection Time Receive d Time (Source) Location / / Volume Laterality Blood 12/11/2021 4:00 PM 4:00 EDT PM EDT Iker Cuevas MD POINT OF CARE TEST ORDERABLE S Performing Organization Address City/State/ZIP Code Phon e Number [address] (ABNORMAL) POCT Glucose (12/11/2021 12:01 PM EDT) P athologist Signature POC Glucose 342 (H) 65 - 199 [facility] mg/dL [facility] Comment: Supplemental ranges: <140 mg/dL before meals <180 mg/dL all other times of the day Specimen Anatomical Collection Method Collection Time Receive d Time (Source) Location / / Volume Laterality Blood 12/11/2021 12:01 12/11/2021 PM EDT 12:01 PM EDT Iker Cuevas MD POINT OF CARE TEST ORDERABLE S Performing Organization Address City/State/[place] [address] COVID-19 PCR (12/11/2021 10:13 AM EDT) Patholo gist Method Time Signature SARS-CoV-2 Not Detected Not Detected BARBARA RNA [facility] Comment: This result should be interpreted [...] diagnosis of COVID-19 is performed using the [employer] Alinity m RONNA S-CoV-2 Assay as authorized by the FDA Emergency Use Authorization (EUA). This EUA assay is intended for In-vitro Diagnostic (IVD) use with respiratory sp ecimens such as nasopharyngeal swabs collected from individuals during the [place] phase of infection. This assay is performed based on the instructions for use provided by [employer] and additional guidance provided by CDC and FDA. Testing is performed in the Clinical Genomics and Advanced Technolog y Laboratory within the Department of Pathology and Laboratory Medicine at [facility], certified under the Clinical Laboratory Improvement [...] clinical management guidance information are available at [facility] CDC Coronavirus Disease 2019 (COVID-19) webpage under Information fo r Healthcare Professionals (https://www.cdc.gov/coronavirus/2019-nc ov/hcp/index.html) Additional information about this and ot her EUA tests can be found in provider and patient fact sheets at the following FDA website: https://www.fda.gov/medical-devices/ivtlyclpyjd-hnfeomc-6833-bczia-63-aitxroryx- itu-vwopclyguigend-yefenkk-devices/xryvc-vshjdhyedlr-kede SARS-Cov-2 RNA Source HYDROGEN TREATER Swab [facility] Specimen (Source) Anatomical Collection Method Collection Time Re ceived Time Location / / Volume Laterality Nasopharyngeal Swab 12/11/2021 10:13 0503/2022 AM EDT 11:16 AM EDT Comment: Symptoms->Surveillance Resulting Agency Comment Spec In Lab Iker Cuevas MD MICROBIOLOGY - GENERAL ORDER [place]BS[place] Performing Organization Address City/[facility]/[place]IP [place] [address] POCT Glucose (12/11/2021 7:34 AM EDT) P athologist Signature POC Glucose 198 65 - 199 [facility]dL [facility] Comment: Supplemental ranges: <140 mg/dL before meals <180 mg/dL all other times of the day Specimen Anatomical Collection Method Collection Time Receive d Time (Source) Location / / Volume Laterality Blood 12/11/2021 7:34 AM 2 7:34 EDT AM EDT Iker Cuevas MD POINT OF CARE TEST ORDERABLE S Performing Organization Address City/[facility]/[place] [address] (ABNORMAL) POCT Glucose (12/11/2021 5:07 AM EDT) P athologist Signature POC Glucose 208 (H) 65 - 199 [facility] Comment: Supplemental ranges: <140 mg/dL before meals <180 mg/dL all other times of the day Specimen Anatomical Collection Method Collection Time Receive d Time (Source) Location / / Volume Laterality Blood 12/11/2021 5:07 AM 2 5:07 EDT AM EDT Iker Cuevas MD POINT OF CARE TEST ORDERABLE S Performing Organization Address City/[facility]/[place] [address] (ABNORMAL) Differential, Automated (12/11/2021 4:28 AM EDT) [facility] gist Method Time Signature Neutrophils % 79.6 % [facility] Neutr Abs (ANC) 7.01 (H) 1.70 - [facility] 6.10 [facility] x10(3)/[facility] L LABORATORY Lymphocytes % 9.1 % [facility] Lymphocytes Abs 0.8 (L) 0.9 - 3.2 [facility] x10(3)/[facility] LABORATORY Monocytes % 9.2 % [facility] Monocyte Abs 0.8 0.3 - 0.9 [facility] x10(3)/[facility] LABORATORY Eosinophils % 1.3 % [facility] Eosinophils Abs 0.1 0.0 - 0.4 [facility] x10(3)/[facility] LABORATORY Basophils % 0.5 % [facility] Basophils Abs 0.0 0.0 - 0.1 [facility] x10(3)/[facility] LABORATORY Immature Gran % 0.30 % [facility] [...] Melisa Gran Abs 0.03 0.00 - 0.04 x10(3)/[facility] MAR Y [facility] LABORATORY Specimen Anatomical Collection Method Collection Time Receive d Time (Source) Location / / Volume Laterality Blood 12/11/2021 4:28 AM 4:37 EDT AM EDT Resulting Agency Comment Spec In Lab Bijan Sun MD HEMATOLOGY ORDERABLES Performing Organization Address City/State/ZIP [place] [address] (ABNORMAL) Hemogram (12/11/2021 4:28 AM EDT) Analysis Performed At Patho logist Time Signature WBC 8.8 4.0 - 9.5 [facility] x10(3)/[facility] LABORATORY RBC 4.15 (L) 4.58 - [facility] 5.54 [facility] x10(6)/[facility] LABORATORY Hemoglobin 11.9 (L) 13.7 - [facility] 16.5 g/dL [facility] Hematocrit 36.9 (L) 40.5 - [facility] 48.5 % [facility] MCV 88.9 82.9 - [facility] 93.1 [facility] LABORATORY MCH 28.7 27.5 - [facility] 32.1 pg [facility] MCHC 32.2 32.0 - [facility] 35.7 g/dL [facility] Platelets 211 145 - 357 [facility] x10(3)/[facility] LABORATORY RDWSD 48.3 (H) 36.0 - [facility] SU 45.0 [facility] LABORATORY RDWCV 14.8 (H) 11.4 - [facility] SU 13.8 % [facility] MPV 9.6 7.6 - 12.9 [facility] LABORATORY nRBC % Auto 0.0 % [facility] nRBC Abs Auto 0.000 0.000 - [facility] 0.000 [facility] x10(3)/[facility] LABORATORY Specimen Anatomical Collection Method Collection Time Receive d Time (Source) Location / / Volume Laterality Blood 12/11/2021 4:28 AM 2 4:37 EDT AM EDT Resulting Agency Comment Spec In Lab Bijan Sun MD HEMATOLOGY ORDERABLES Performing Organization Address City/State/ZIP [place] [address] (ABNORMAL) Prothrombin Time (12/11/2021 4:28 AM EDT) P athologist Signature PT 17.7 (H) 9.4 - 12.5 [facility] sec [facility] INR 1.6 [facility] Comment: An INR [...] Organization Address City/State/ZIP [place] [address] (ABNORMAL) BMP w/fasting Glucose (12/11/2021 4:28 AM EDT) P athologist Signature Glucose 207 (H) 65 - 99 [facility] Fasting mg/dL [facility] Comment: ?Fasting* Glucose Interpretive C [...] of Diabetes Mellitus, Position Statement from the [employer] [employer]. ??Diabete s Care, Volume 33, Supplement 1, Jul 2009 BUN 49 (H) 10 - 20 mg/dL [facility] Creatinine 1.43 0.80 - 1.50 mg/dL [facility] Sodium 142 135 - 145 mmol/L [facility] Potassium 4.0 3.5 - 5.0 mmol/L [facility] Comment: Please note: ??Patients with WBC >100,00 0 may have falsely elevated Potassium levels. ??For accurate Potassium quantif ication in these patients send serum separator tube (gold top) for subsequent determinations. ??Contact the Clinical Chemistry Laboratory if there are any qu estions. Chloride 104 98 - 107 mmol/L [facility] CO2 23 22 - 31 mmol/L [facility] Anion Gap 15 5 - 15 mmol/L [facility] Calcium 8.6 8.5 - 10.5 mg/dL [facility] Estimated GFR 48 (L) >=60 mL/min/1.73 m?? [facility] [...] Organization Address City/State/ZIP Code Phon e Number [address] Magnesium (12/11/2021 4:28 AM EDT) P athologist Signature Magnesium 1.04 0.69 - 1.07 [facility] mmol/L [facility] Specimen Anatomical Collection Method Collection Time Receive d Time (Source) Location / / Volume Laterality Blood 12/11/2021 4:28 AM 2 4:37 EDT AM EDT Resulting Agency Comment Spec In Lab Iker Cuevas MD CHEMISTRY ORDERABLES Performing Organization Address City/State/ZIP Code Phon e Number [address] POCT Glucose (12/11/2021 3:58 AM EDT) P athologist Signature POC Glucose 189 65 - 199 [facility] mg/dL [facility] Comment: Supplemental ranges: <140 mg/dL before meals <180 mg/dL all other times of the day Specimen Anatomical Collection Method Collection Time Receive d Time (Source) Location / / Volume Laterality Blood 12/11/2021 3:58 AM 2 3:58 EDT AM EDT Iker Cuevas MD POINT OF CARE TEST ORDERABLE S Performing Organization Address City/State/[place] [address] (ABNORMAL) POCT Glucose (12/10/2021 11:45 PM EDT) athologist Signature POC Glucose 205 (H) 65 - 199 [facility] SU mg/dL [facility] Comment: Supplemental ranges: <140 mg/dL before meals <180 mg/dL all other times of the day Specimen Anatomical Collection Method Collection Time Receive d Time (Source) Location / / Volume Laterality Blood 12/10/2021 11:45 12/10/2021 PM EDT 11:45 PM EDT Iker Cuevas MD POINT OF CARE TEST ORDERABLE S Performing Organization Address City/[facility]/[place] [address] (ABNORMAL) POCT Glucose (12/10/2021 7:54 PM EDT) athologist Signature POC Glucose 225 (H) 65 - 199 [facility] mg/dL [facility] Comment: Supplemental ranges: <140 mg/dL before meals <180 mg/dL all other times of the day Specimen Anatomical Collection Method Collection Time Receive d Time (Source) Location / / Volume Laterality Blood 12/10/2021 7:54 PM 2 7:54 EDT PM EDT Iker Cuevas MD POINT OF CARE TEST ORDERABLE S Performing Organization Address City/[facility]/[place] [address] Potassium (12/10/2021 7:46 PM EDT) athologist Signature Potassium 4.2 3.5 - 5.0 [facility] mmol/L [facility] Comment: Please note: ??Patients with [...] Organization Address City/State/ZIP [place] [address] (ABNORMAL) Basic Metabolic Panel (non-fasting) (12/10/2021 6:12 PM EDT) athologist Signature Glucose Lvl 246 (H) 65 - 199 [facility] mg/dL [facility] Comment: Diabetes: >=200 mg/dL plus symp toms BUN 50 (H) 10 - 20 mg/dL [facility] Creatinine 1.39 0.80 - 1.50 mg/dL [facility] Sodium 138 135 - 145 mmol/L [facility] Potassium Not Perf 3.5 - 5.0 [facility] Comment: Unable to quantitate due [...] 107 mmol/L [facility] CO2 22 22 - 31 mmol/L [facility] Anion Gap 16 (H) 5 - 15 mmol/L [facility] Calcium 8.3 (L) 8.5 - 10.5 mg/dL [facility] Estimated GFR 49 [...] Organization Address City/State/[place] [address] POCT Glucose (12/10/2021 4:59 PM EDT) athologist Signature POC Glucose 158 65 - 199 [facility] mg/dL [facility] Comment: Supplemental ranges: <140 mg/dL before meals <180 mg/dL all other times of the day Specimen Anatomical Collection Method Collection Time Receive d Time (Source) Location / / Volume Laterality Blood 12/10/2021 4:59 PM 2 4:59 EDT PM EDT Iker Cuevas MD POINT OF CARE TEST ORDERABLE S Performing Organization Address City/State/[place] [address] (ABNORMAL) POCT Glucose (12/10/2021 12:43 PM EDT) P athologist Signature POC Glucose 241 (H) 65 - 199 [facility] mg/dL [facility] Comment: Supplemental ranges: <140 mg/dL before meals <180 mg/dL all other times of the day Specimen Anatomical Collection Method Collection Time Receive d Time (Source) Location / / Volume Laterality Blood 12/10/2021 12:43 12/10/2021 PM EDT 12:43 PM EDT Iker Cuevas MD POINT OF CARE TEST ORDERABLE S Performing Organization Address City/State/ZIP Code Phon e Number [place] [phone] EKG 12 Lead (12/10/2021 11:17 AM EDT) Component Value Ref Range Test Analysis Performed Pathologis t Method Time At Signature Ventricular rate 62 BPM MUSE SYSTEM Atrial Rate 62 BPM MUSE SYSTEM P-R Interval 142 ms MUSE SYSTEM QRS Duration 100 ms MUSE SYSTEM Q-T Interval 434 ms MUSE SYSTEM QTC Calculated 440 ms MUSE SYSTEM (Bezet) Calculated P [place] 34 degrees MUSE SYSTEM Calculated R [place] -39 degrees MUSE SYSTEM Calculated T [place] 92 degrees MUSE SYSTEM INTERPRETATION Normal sinus [...] SYSTEM - 12/10/2021 12:04 PM E DT ?[facility] ? Cardiac Cathete rization/Intervention Report ? Patient Name: Kushal Don Mccollum. ? Procedure Date: 12/10/2021 ? A #: [id number] ? Primary Physician: Nobles, Vitaliy P ? Case #: [id number] ? File Name: [id number] ? Catheterization Order Number: [id number] ? [facility] ? Final Report [place], [place] ? Patient Name: ? Don E. Stewa rt ? ID#: ?[id number] ? : ?1945 ? Procedure Date: ? December 10, 2021 ? Case #: ? [id number] ? Room: ? 1 ? Case Physician: ? Fabian Lopez ?Start: ?08:41 ?Fellow: ? [place] M.D. ?Admission: ??12/08/2021 ?Bjian silverman M.D. ? Discharge: ??12/12/2021 ? Referring [...] was ?designated as ASA Class III. e [facility] clinical frailty scale is 5: [...] procedure was Urgent. The indication for ?the roving tester laboratory visit is ACS great er than [...] ?3.75 guiding catheter and a 3.5 Fr [facility] [place] 20 Mhz using Manual ?pullback. ??Imaging was [...] ?3.75 guiding catheter and a 3.5 Fr [facility] [place] 20 Mhz using Manual ?pullback. ??Imaging was [...] lar ge 4.0 x 24 mm Synergy UTCKER stent in the ? proximal LCX le [...] require ?modification of this regimen. C onsult [facility] Interventional Cardiology for ?questions. ?The 1 year bleeding risk as nusrat culated by the PRECISE DAPT score is High ?risk. ?High Bleeding Risk - Anticoagul ation and DAPT: ?- ??Assess ischemic and bleedin g risks using validated risk predictors ?(e.g. CHADS2-VASC, HAS-BLED, [place] ECISE DAPT, DAPT Score) ?- ??Keep anticoagulant [...] Procedure Note Vitaliy Nobles MD - 01/14/[address] [facility] Cardiac Catheterization/Intervention Re port Patient Name: Don Fatima Procedure Date: 12/10/2021 A #: [id number] Primary Physician: Vitaliy Nobles Case #: [id number] File Name: [id number] Catheterization Order Number: [id number] [facility] Final Report [place], [place] Patient Name: Don Fatima ID#: [...] e was Urgent. The indication for the roving tester laboratory visit is ACS greater than 24 [...] There was a single discrete total occlu ltaonya of the ostial portion of the segment [...] and a 3.5 Fr [facility] [place] 20 Mhz using Manual pullback. Imaging was [...] and a 3.5 Fr [facility] [place] 20 Mhz using Manual pullback. Imaging was [...] Antiplatelet (DAPT) Recommendations : Drug eluting stent (TUKCER) inserted. P2Y12 Loading dose Prasugrel 60 mg [...] require modification of this regimen. Consult D [facility] Interventional Cardiology for questions. The 1 year [...] (H) 65 - 199 [facility] mg/dL [facility] Comment: Supplemental ranges: <140 mg/dL before meals <180 mg/dL all other times of the day Specimen Anatomical Collection Method Collection Time Receive d Time (Source) Location / / Volume Laterality Blood 12/10/2021 10:30 12/10/2021 AM EDT 10:30 AM EDT Iker Cuevas MD POINT OF CARE TEST ORDERABLE S Performing Organization Address City/[facility]/[place] [address] (ABNORMAL) POCT Glucose (12/10/2021 9:48 AM EDT) athologist Signature POC Glucose 279 (H) 65 - 199 [facility] mg/dL [facility] Comment: Supplemental ranges: <140 mg/dL before meals <180 mg/dL all other times of the day Specimen Anatomical Collection Method Collection Time Receive d Time (Source) Location / / Volume Laterality Blood 12/10/2021 9:48 AM 9:48 EDT AM EDT Iker Cuevas MD POINT OF CARE TEST ORDERABLE S Performing Organization Address City/[facility]/[place] [address] (ABNORMAL) POCT Glucose (12/10/2021 9:07 AM EDT) athologist Signature POC Glucose 268 (H) 65 - 199 [facility] mg/dL [facility] Comment: Supplemental ranges: <140 mg/dL before meals <180 mg/dL all other times of the day Specimen Anatomical Collection Method Collection Time Receive d Time (Source) Location / / Volume Laterality Blood 12/10/2021 9:07 AM 2 9:07 EDT AM EDT Iker Cuevas MD POINT OF CARE TEST ORDERABLE S Performing Organization Address City/State/ZIP [place] [address] (ABNORMAL) Point of Care Blood Gas Historical (12/10/2021 9:04 AM EDT) Patholo gist Method Time Signature POC pH 7.40 7.35 - [facility] 7.45 [facility] POC PCO2 40 35 - 45 [facility] mmHg [facility] POC PO2 63 (L) 85 - 104 [facility] LABORATORY POC Base Excess 0.0 -3.0 - 3.0 [facility] K mmol/L [facility] POC HCO3 24.8 20.0 - [facility] 26.0 [facility] POC Sodium 143 135 - 145 [facility] mmol/L [facility] POC Potassium 3.7 3.5 - 5.0 [facility] mmol/L [facility] POC Ionized Ca 1.07 (L) 1.15 - [facility] 1.33 [facility] POC Hematocrit 30.0 (L) 40.0 - [facility] 51.0 % [facility] POC Calc Hgb 10.2 (L) 13.7 - [facility] 17.5 g/dL [facility] Comment: The calculation of hemoglobin f rom hematocrit assumes a normal MCHC. POC Bgas Loc CC LAB [facility] LABORATORY Specimen Anatomical Collection Method Collection Time Receive d Time (Source) Location / / Volume Laterality Blood 12/10/2021 9:04 AM 2 EDT 12:00 PM EDT Ifeanyi Truong MD CHEMISTRY ORDERABLES Performing Organization Address City/State/ZIP Code Phon e Number [place] [phone] (ABNORMAL) POCT Glucose (12/10/2021 7:19 AM EDT) P athologist Signature POC Glucose 274 (H) 65 - 199 [facility] mg/dL [facility] Comment: Supplemental ranges: <140 mg/dL before meals <180 mg/dL all other times of the day Specimen Anatomical Collection Method Collection Time Receive d Time (Source) Location / / Volume Laterality Blood 12/10/2021 7:19 AM 2 7:19 EDT AM EDT Iker Cuevas MD POINT OF CARE TEST ORDERABLE S Performing Organization Address City/[facility]/ZIP Code Phon e Number [address] Heparin (unfractionated) Level (12/10/2021 4:25 AM EDT) P athologist Signature Heparin UFH 0.69 IU/mL [facility] LABORATORY Comment: Heparin (anti-Xa) levels should [...] Cuevas MD HEMATOLOGY ORDERABLES Performing Organization Address City/[facility]/ZIP Code Phon e Number [address] (ABNORMAL) Differential, Automated (12/10/2021 4:25 AM EDT) Patholo gist Method Time Signature Neutrophils % 79.8 % [facility] Neutr Abs (ANC) 7.47 (H) 1.70 - [facility] 6.10 [facility] x10(3)/[facility] L LABORATORY Lymphocytes % 10.6 % [facility] Lymphocytes Abs 1.0 0.9 - 3.2 [facility] x10(3)/[facility] LABORATORY Monocytes % 8.4 % [facility] Monocyte Abs 0.8 0.3 - 0.9 [facility] x10(3)/[facility] LABORATORY Eosinophils % 0.6 % [facility] Eosinophils Abs 0.1 0.0 - 0.4 [facility] x10(3)/[facility] LABORATORY Basophils % 0.2 % [facility] Basophils Abs 0.0 0.0 - 0.1 [facility] x10(3)/[facility] LABORATORY Immature Gran % 0.40 % [...] Melisa Gran Abs 0.04 0.00 - 0.04 x10(3)/[facility] MAR Y [facility] LABORATORY Specimen Anatomical Collection Method Collection Time Receive d Time (Source) Location / / Volume Laterality Blood 12/10/2021 4:25 AM 2 4:34 EDT AM EDT Resulting Agency Comment Spec In Lab Morgan BROWN HEMATOLOGY ORDERABLES Performing Organization Address City/State/ZIP [place] [address] (ABNORMAL) Hemogram (12/10/2021 4:25 AM EDT) Analysis Performed At Patho logist Time Signature WBC 9.4 4.0 - 9.5 [facility] x10(3)/[facility] LABORATORY RBC 3.81 (L) 4.58 - [facility] 5.54 [facility] x10(6)/[facility] LABORATORY Hemoglobin 11.1 (L) 13.7 - [facility] 16.5 g/dL [facility] Hematocrit 34.0 (L) 40.5 - [facility] 48.5 % [facility] MCV 89.2 82.9 - [facility] 93[facility]1 [facility] LABORATORY MCH 29.1 27.5 - [facility] 32.1 pg [facility] MCHC 32.6 32.0 - [facility] 35.7 g/dL [facility] Platelets 183 145 - 357 [facility] x10(3)/[facility] LABORATORY RDWSD 49.9 (H) 36.0 - [facility] 45.0 [facility] LABORATORY RDWCV 15.2 (H) 11.4 - [facility] 13.8 % [facility] MPV 9.8 7.6 - 12.9 [facility] LABORATORY nRBC % Auto 0.0 % [facility]ATORY nRBC Abs Auto 0.000 0.000 - [facility] 0.000 [facility] x10(3)/[facility] LABORATORY Specimen Anatomical Collection Method Collection Time Receive d Time (Source) Location / / Volume Laterality Blood 12/10/2021 4:25 AM 2 4:34 EDT AM EDT Resulting Agency Comment Spec In Lab Morgan BROWN HEMATOLOGY ORDERABLES Performing Organization Address City/State/ZIP Code Phon e Number [place] [phone] (ABNORMAL) Prothrombin Time (12/10/2021 4:25 AM EDT) P athologist Signature PT 20.0 (H) 9.4 - 12.5 [facility] LABORATORY INR 1.7 [facility] LAB[facility]ORY Comment: An INR [...] Organization Address City/State/ZIP [place] [address] (ABNORMAL) BMP w/fasting Glucose (12/10/2021 4:25 AM EDT) athologist Signature Glucose 210 (H) 65 - 99 [facility] Fasting mg/dL [facility] Comment: ?Fasting* Glucose Interpretive C [...] of Diabetes Mellitus, Position Statement from the [employer]. ??Diabete s Care, Volume 33, Supplement 1, Jul 2009 BUN 54 (H) 10 - 20 mg/dL [facility] Creatinine 1.52 (H) 0.80 - 1.50 mg/dL [facility] Sodium 140 135 - 145 mmol/L [facility] Potassium 3.9 3.5 - 5.0 mmol/L [facility] Comment: Please note: ??Patients with WBC >100,00 0 may have falsely elevated Potassium levels. ??For accurate Potassium quantif ication in these patients send serum separator tube (gold top) for subsequent determinations. ??Contact the Clinical Chemistry Laboratory if there are any qu estions. Chloride 104 98 - 107 mmol/L [facility] CO2 23 22 - 31 mmol/L [facility] Anion Gap 13 5 - 15 mmol/L [facility] Calcium 8.0 (L) 8.5 - 10.5 mg/dL [facility] Estimated GFR 44 (L) >=60 mL/min/1.73 m?? [facility] [...] Organization Address City/State/ZIP Code Phon e Number [address] Magnesium (12/10/2021 4:25 AM EDT) P athologist Signature Magnesium 0.95 0.69 - 1.07 [facility] mmol/L [facility] Specimen Anatomical Collection Method Collection Time Receive d Time (Source) Location / / Volume Laterality Blood 12/10/2021 4:25 AM 2 4:34 EDT AM EDT Resulting Agency Comment Spec In Lab Iker Cuevas MD CHEMISTRY ORDERABLES Performing Organization Address City/State/ZIP Code Phon e Number [address] POCT Glucose (12/10/2021 1:58 AM EDT) P athologist Signature POC Glucose 164 65 - 199 [facility] mg/dL [facility] Comment: Supplemental ranges: <140 mg/dL before meals <180 mg/dL all other times of the day Specimen Anatomical Collection Method Collection Time Receive d Time (Source) Location / / Volume Laterality Blood 12/10/2021 1:58 AM 2 1:58 EDT AM EDT Iker Cuevas MD POINT OF CARE TEST ORDERABLE S Performing Organization Address City/[facility]/[place]IP [place] [address] (ABNORMAL) POCT Glucose (12/09/2021 9:02 PM EDT) athologist Signature POC Glucose 313 (H) 65 - 199 [facility] mg/dL [facility] Comment: Supplemental ranges: <140 mg/dL before meals <180 mg/dL all other times of the day Specimen Anatomical Collection Method Collection Time Receive d Time (Source) Location / / Volume Laterality Blood 12/09/2021 9:02 PM 2 9:02 EDT PM EDT Iker Cuevas MD POINT OF CARE TEST ORDERABLE S Performing Organization Address City/[facility]/ZIP Code Phon e Number [place] [id number] Heparin (unfractionated) Level (12/09/2021 7:30 PM EDT) athologist Signature Heparin UFH 0.48 IU/mL [facility] Comment: Heparin (anti-Xa) levels should [...] Organization Address City/State/ZIP [place] [address] (ABNORMAL) Basic Metabolic Panel (non-fasting) (12/09/2021 7:30 PM EDT) P athologist Signature Glucose Lvl 372 (H) 65 - 199 [facility] mg/dL [facility] Comment: Diabetes: >=200 mg/dL plus symp toms BUN 56 (H) 10 - 20 mg/dL [facility] Creatinine 1.75 (H) 0.80 - 1.50 mg/dL [facility] Sodium 138 135 - 145 mmol/L [facility] Potassium 4.2 3.5 - 5.0 mmol/L [facility] Comment: Please note: ??Patients with WBC >100,00 0 may have falsely elevated Potassium levels. ??For accurate Potassium quantif ication in these patients send serum separator tube (gold top) for subsequent determinations. ??Contact the Clinical Chemistry Laboratory if there are any qu estions. Chloride 102 98 - 107 mmol/L [facility] CO2 22 22 - 31 mmol/L [facility] Anion Gap 14 5 - 15 mmol/L [facility] Calcium 8.1 (L) 8.5 - 10.5 mg/dL [facility] Estimated GFR 37 (L) >=60 mL/min/1.73 m?? [facility] [...] Organization Address City/State/[place] [address] (ABNORMAL) POCT Glucose (12/09/2021 6:34 PM EDT) athologist Signature POC Glucose 408 (H) 65 - 199 [facility] mg[facility] Comment: Supplemental ranges: <140 mg/dL before meals <180 mg/dL all other times of the day Specimen Anatomical Collection Method Collection Time Receive d Time (Source) Location / / Volume Laterality Blood 12/09/2021 6:34 PM 2 6:34 EDT PM EDT Iker Cuevas MD POINT OF CARE TEST ORDERABLE S Performing Organization Address City/State/[place] [address] (ABNORMAL) POCT Glucose (12/09/2021 6:32 PM EDT) athologist Signature POC Glucose 356 (H) 65 - 199 [facility] mg/dL [facility] Comment: Supplemental ranges: <140 mg/dL before meals <180 mg/dL all other times of the day Specimen Anatomical Collection Method Collection Time Receive d Time (Source) Location / / Volume Laterality Blood 12/09/2021 6:32 PM 2 6:32 EDT PM EDT Iker Cuevas MD POINT OF CARE TEST ORDERABLE S Performing Organization Address City/State/[place] [address] (ABNORMAL) POCT Glucose (12/09/2021 4:19 PM EDT) athologist Signature POC Glucose 347 (H) 65 - 199 [facility] mg/dL [facility] Comment: Supplemental ranges: <140 mg/dL before meals <180 mg/dL all other times of the day Specimen Anatomical Collection Method Collection Time Receive d Time (Source) Location / / Volume Laterality Blood 12/09/2021 4:19 PM 2 4:19 EDT PM EDT Iker Cuevas MD POINT OF CARE TEST ORDERABLE S Performing Organization Address City/State/[place] [address] Heparin (unfractionated) Level (12/09/2021 1:29 PM EDT) athologist [facility] Heparin UFH 0.42 IU/mL [facility]OR[facility]ORY Comment: Heparin (anti-Xa) levels should [...] Organization Address City/State/[place] [address] (ABNORMAL) POCT Glucose (12/09/2021 12:02 PM EDT) athologist Signature POC Glucose 235 (H) 65 - 199 [facility] mg/dL [facility] Comment: Supplemental ranges: <140 mg/dL before meals <180 mg/dL all other times of the day Specimen Anatomical Collection Method Collection Time Receive d Time (Source) Location / / Volume Laterality Blood 12/09/2021 12:02 12/09/2021 PM EDT 12:02 PM EDT Iker Cuevas MD POINT OF CARE TEST ORDERABLE S Performing Organization Address City/[facility]/[place]IP [place] [address] (ABNORMAL) POCT Glucose (12/09/2021 9:44 AM EDT) athologist Signature POC Glucose 214 (H) 65 - 199 [facility] mg/dL [facility] Comment: Supplemental ranges: <140 mg/dL before meals <180 mg/dL all other times of the day Specimen Anatomical Collection Method Collection Time Receive d Time (Source) Location / / Volume Laterality Blood 12/09/2021 9:44 AM 9:44 EDT AM EDT Iker Cuevas MD POINT OF CARE TEST ORDERABLE S Performing Organization Address City/[facility]/[place] [address] EKG 12 Lead (12/09/2021 7:57 AM EDT) Component Value Ref Range Test Analysis Performed Pathologis t Method Time At Signature Ventricular rate 101 BPM MUSE SYSTEM Atrial Rate 101 BPM MUSE SYSTEM P-R Interval 150 ms MUSE SYSTEM QRS Duration 112 ms MUSE SYSTEM Q-T Interval 364 ms MUSE SYSTEM QTC Calculated 471 ms MUSE SYSTEM (Bezet) Calculated P [place] 59 degrees MUSE SYSTEM Calculated R [place] -42 degrees MUSE SYSTEM Calculated T [place] 102 degrees MUSE SYSTEM INTERPRETATION Sinus tachycardia Occasional Premature ventricular com plexes MUSE SYSTEM Left axis deviation 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) Abnormal ECG When compared with ECG of 08-DEC-2021 16:40, Premature ventricular complexes are now Present Confirmed by MD Fernandez Danette ([id number]) on 12/10/2021 4:55:06 PM Specimen Anatomical Collection Method Collection Time Receive d Time (Source) Location / / Volume Laterality 12/09/2021 7:57 AM 4:55 EDT PM EDT Iker Cuevas MD ECG ORDERABLES Performing Organization Address City/State/ZIP Code Phon e Number MUSE SYSTEM (ABNORMAL) POCT Glucose (12/09/2021 7:28 AM EDT) P athologist Signature POC Glucose 263 (H) 65 - 199 [facility] mg/dL [facility] Comment: Supplemental ranges: <140 mg/dL before meals <180 mg/dL all other times of the day Specimen Anatomical Collection Method Collection Time Receive d Time (Source) Location / / Volume Laterality Blood 12/09/2021 7:28 AM 7:28 EDT AM EDT Iker Cuevas MD POINT OF CARE TEST ORDERABLE S Performing Organization Address City/State/[place] [address] (ABNORMAL) Hemoglobin A1c (12/09/2021 [...] Mellitus, Diabetes Care 2013; 36: Suppl. 1, S67-96 Est Avg Gluc See note mg/dL [facility] Comment: Estimated Average Glucose not [...] with hemoglobinopathies. Additional resources are available on [facility] ADA website. Macario HAMMOND, Ruthann J, Deysi R, et al. ??Tr anslating the A1C assay into estimated average glucose values. ??Diabetes Care 2008:31(8):1766-6879. Specimen Anatomical Collection Method Collection Time Receive d Time (Source) Location / / Volume Laterality Blood Venous Draw / 12/09/2021 6:18 AM 12/10/19 22 Unknown EDT 12:24 PM EDT Resulting Agency Comment Spec In Lab Migdalia BROWN CHEMISTRY ORDERABLES Performing Organization Address City/[facility] [place] [address] (ABNORMAL) Prothrombin Time (12/09/2021 6:18 AM EDT) P athologist Signature PT 26.6 (H) 9.4 - 12.5 [facility] LABORATORY INR 2.3 [facility] Comment: An INR [...] Migdalia BROWN HEMATOLOGY ORDERABLES Performing Organization Address [facility]/ZIP [place] [address] Heparin (unfractionated) Level (12/09/2021 6:18 AM EDT) P athologist Signature Heparin UFH 0.24 IU/mL [facility] LABORATORY Comment: Heparin (anti-Xa) levels should [...] Cuevas MD HEMATOLOGY ORDERABLES Performing Organization Address City/[facility]/ZIP Code Phon e Number [address] (ABNORMAL) Differential, Automated (12/09/2021 6:18 AM EDT) Patholo gist Method Time Signature Neutrophils % 91.5 % [facility] Neutr Abs (ANC) 15.78 (H) 1.70 - [facility] 6.10 [facility] x10(3)/[facility] L LABORATORY Lymphocytes % 2.9 % [facility] Lymphocytes Abs 0.5 (L) 0.9 - 3.2 [facility] x10(3)/[facility] LABORATORY Monocytes % 4.9 % [facility] Monocyte Abs 0.8 0.3 - 0.9 [facility] x10(3)/[facility] LABORATORY Eosinophils % 0.0 % [facility] Eosinophils Abs 0.0 0.0 - 0.4 [facility] x10(3)/[facility] LABORATORY Basophils % 0.2 % [facility] Basophils Abs 0.0 0.0 - 0.1 [facility] x10(3)/[facility] LABORATORY Immature Gran % 0.50 % [facility] [...] Organization Address City/State/ZIP [place] [address] (ABNORMAL) Hemogram (12/09/2021 6:18 AM EDT) Analysis Performed At Patho logist Time Signature WBC 17.2 (H) 4.0 - 9.5 [facility] x10(3)/[facility] LABORATORY RBC 4.32 (L) 4.58 - [facility] 5.54 [facility] x10(6)/[facility] LABORATORY Hemoglobin 12.6 (L) 13.7 - [facility] 16.5 g/dL [facility] Hematocrit 38.9 (L) 40.5 - [facility] 48.5 % [facility] MCV 90.0 82.9 - [facility] 93.1 fL [facility] MCH 29.2 27.5 - [facility] 32.1 pg [facility] MCHC 32.4 32.0 - [facility] 35.7 g/dL [facility] Platelets 193 145 - 357 [facility] x10(3)/[facility] LABORATORY RDWSD 50.4 (H) 36.0 - [facility] 45.0 [facility] LABORATORY RDWCV 15.2 (H) 11.4 - [facility] 13.8 % [facility] MPV 9.5 7.6 - 12.9 [facility] LABORATORY nRBC % Auto 0.0 % [facility] nRBC Abs Auto 0.000 0.000 - [facility] 0.000 [facility] x10(3)/[facility] LABORATORY Specimen Anatomical Collection Method Collection Time Receive d Time (Source) Location / / Volume Laterality Blood 12/09/2021 6:18 AM 6:33 EDT AM EDT Resulting Agency Comment Spec In Lab Morgan BROWN HEMATOLOGY ORDERABLES Performing Organization Address City/State/ZIP [place] [address] Lipid Panel (Reflex Direct LDL) (12/09/2021 6:18 AM EDT) P athologist Signature Chol, Total 105 mg/dL [facility] Comment: Lower Risk: <200 mg/dL Average Risk: 200-239 mg/dL Higher Risk: >xs=938 mg/dL Triglycerides 133 mg/dL [facility] Comment: Average Risk/Lower Risk: <150 mg/dL Borderline High Risk: 150-199 mg/dL High Risk: 200-499 mg/dL Very High Risk: >iz=738 mg/dL HDL 42 mg/dL [facility] Comment: Males: ?? Higher Risk: <40 mg/dL Females: ?? Higher Risk: <50 mg/dL LDL Cholesterol 36 mg/dL [facility] Comment: Lowest Risk: <100 mg/dL Lower Risk: 100-129 mg/dL Borderline High Risk: 130-159 mg/dL High Risk: 160-189 mg/dL Very High Risk: >yr=500 mg/dL Chol/HDL Ratio 2.5 ratio [facility] Lipid Interpretation See Note [facility] Comment: Lipid management should be guided by a p atient? s ASCVD risk, goals and preferences. ACC/AHA Guidelines recommend high intens ity statin if clinical ASCVD or LDL greater than or equal to 190 mg/dL. [email or web address] Adults aged 40-75 with LDL 70-189 mg/dL should have their 10 year ASCVD risk estimated with the ACC/AHA ASCVD risk es timator http://tools.acc.org/XNKAY-Ubog-Nodritad r/ Statin should be discussed if risk [...] Organization Address City/State/[place] [address] TSH (12/09/2021 6:18 AM EDT) P athologist Signature TSH 1.60 0.27 - 4.20 [facility] SU mcIU/mL [facility] Comment: Reference Interval (mcIU/mL): Females: ??First Trimester: 0.23-3.88 ??Second Trimester: 0.22-3.90 ??Third Trimester: 0.44-4.66 Specimen Anatomical Collection Method Collection Time Receive d Time (Source) Location / / Volume Laterality Blood 12/09/2021 6:18 AM 2 6:33 EDT AM EDT Resulting Agency Comment Spec In Lab Iker Cuevas MD CHEMISTRY ORDERABLES Performing Organization Address City/State/[place] [address] Hepatic Function Panel (12/09/2021 6:18 AM EDT) athologist Signature Total Protein 7.3 6.1 - 8.0 [facility] g/dL [facility] Albumin 4.2 3.2 - 5.2 [facility] g/dL [facility] AST 25 0 - 39 [facility] SU unit/L [facility] ALT 15 0 - 55 [facility] unit/L [facility] Alk Phos 75 40 - 130 [facility] SU unit/L [facility] Total 1.1 0.2 - 1.3 [facility] Bilirubin mg/dL [facility] Bili, Direct 0.2 0.0 - 0.3 [facility] SU mg/dL [facility] Specimen Anatomical Collection Method Collection Time Receive d Time (Source) Location / / Volume Laterality Blood 12/09/2021 6:18 AM 6:33 EDT AM EDT Resulting Agency Comment Spec In Lab Iker Cuevas MD CHEMISTRY ORDERABLES Performing Organization Address City/State/[place] [address] (ABNORMAL) BMP w/fasting Glucose (12/09/2021 6:18 AM EDT) athologist Signature Glucose 235 (H) 65 - 99 [facility] Fasting mg/dL [facility] Comment: ?Fasting* Glucose Interpretive C [...] of Diabetes Mellitus, Position Statement from the [employer]. ??Diabete s Care, Volume 33, Supplement 1, Jul 2009 BUN 49 (H) 10 - 20 mg/dL [facility] Creatinine 1.33 0.80 - 1.50 mg/dL [facility] Sodium 139 135 - 145 mmol/L [facility] Potassium 4.2 3.5 - 5.0 mmol/L [facility] [...] Gap 17 (H) 5 - 15 mmol/L [facility] Calcium 8.8 8.5 - 10.5 mg/dL [facility] Estimated GFR 52 (L) >=60 mL/min/1.73 m?? [facility] [...] Organization Address City/State/ZIP [place] [address] Magnesium (12/09/2021 6:18 AM EDT) athologist Signature Magnesium 0.81 0.69 - 1.07 [facility] mmol/L [facility] Specimen Anatomical Collection Method Collection Time Receive d Time (Source) Location / / Volume Laterality Blood 12/09/2021 6:18 AM 2 6:33 EDT AM EDT Resulting Agency Comment Spec In Lab Iker Cuevas MD CHEMISTRY ORDERABLES Performing Organization Address City/State/ZIP Code Phon e Number [facility] [address] (ABNORMAL) Troponin (12/09/2021 6:18 AM EDT) athologist Signature Troponin-T 1.13 (H) 0.00 - [facility] 0.00 ng/mL [facility] Comment: The 99th percentile for Troponin T is le ss than 0.01 ng/mL, any detectable cTnT concentration using this assay should be considered elevated. According to the third universal definit ion of myocardial infarction the following criteria with a clinical prese ntation consistent with acute myocardial ischemia meets the diagnosis for a myocardial infarction (DC). Detection of a rise and/or fall of [...] additional sample may be indicated. Reference: Third [place] Definition of Myocardial Infarction. Journal of the [employer] 2012;60:1581-98 Specimen Anatomical Collection Method Collection Time Receive d Time (Source) Location / / Volume Laterality Blood 12/09/2021 6:18 AM 6:33 EDT AM EDT Resulting Agency Comment Spec In Lab Iker Cuevas MD CHEMISTRY ORDERABLES Performing Organization Address City/State/ZIP [place] [address] XR Chest One View [...] who have questions please contact the health pediatric acute care unit nurse that requested your imaging first. ? [...] ho have questions please contact the health pediatric acute care unit nurse that requested your imaging first. Amber Sanches MD IMG DX ORDERABLES (ABNORMAL) BLOOD GAS 2 ARTERIAL (12/09/2021 5:14 AM EDT) Analysis Performed At Patho logist Time Signature pH Art 7.43 7.35 - [facility] 7.45 [facility] pCO2 Art 36 35 - 45 [facility] mmHg [facility] pO2 Art 67 (L) 85 - 104 [facility] mmHg [facility] HCO3 Art 23.4 20.0 - [facility] 26.0 [facility] mmol/L [facility] BE Art -0.9 -3.0 - 3.0 [facility] mmol/L [facility] Hgb Blood Gas 13.2 (L) 13.7 - [facility] 16.5 g/dL [facility] O2HB Art 91.3 (L) 94.0 - [facility] 97.0 % [facility] COHB Art 0.4 % [facility] Comment: Nonsmokers: 0.5-1.5% COHB Smokers: Variable, but usually less than 10% Toxic: 20-30% COHB Lethal: Greater than 60% COHB METHB Art 0.4 <=1.5 % [facility] Na Whole Blood 138 135 [...] Whole Blood 104 98 - 107 mmol/L [facility] Gluc Whole Bld 223 (H) 65 - 199 mg/dL [facility] Comment: Diabetes: >=200 mg/dL plus symp toms. Lactate WB 2.7 (H) 0.5 - 2.2 mmol/L [facility] FIO2 Art 35 % [facility] Flow Art 8.0 LPM [facility] PF Ratio Art 191 [facility]ORY Specimen Anatomical Collection Method Collection Time Receive d Time (Source) Location / / Volume Laterality Blood 12/09/2021 5:14 AM 2 5:14 EDT AM EDT Iker Cuevas MD CHEMISTRY ORDERABLES Performing Organization Address City/[facility]/[place] [address] POCT Glucose (12/09/2021 4:46 AM EDT) P athologist Signature POC Glucose 198 65 - 199 [facility] mg/dL [facility] Comment: Supplemental ranges: <140 mg/dL before meals <180 mg/dL all other times of the day Specimen Anatomical Collection Method Collection Time Receive d Time (Source) Location / / Volume Laterality Blood 12/09/2021 4:46 AM 2 4:46 EDT AM EDT Iker Cueavs MD POINT OF CARE TEST ORDERABLE S Performing Organization Address City/State/[place] [address] (ABNORMAL) POCT Glucose (12/09/2021 3:01 AM EDT) athologist Signature POC Glucose 225 (H) 65 - 199 [facility] Comment: Supplemental ranges: <140 mg/dL before meals <180 mg/dL all other times of the day Specimen Anatomical Collection Method Collection Time Receive d Time (Source) Location / / Volume Laterality Blood 12/09/2021 3:01 AM 3:01 EDT AM EDT Iker Cuevas MD POINT OF CARE TEST ORDERABLE S Performing Organization Address City/State/ZIP Code Phon e Number [address] (ABNORMAL) POCT Glucose (12/08/2021 10:55 PM EDT) athologist Signature POC Glucose 327 (H) 65 - 199 [facility]dL [facility] Comment: Supplemental ranges: <140 mg/dL before meals <180 mg/dL all other times of the day Specimen Anatomical Collection Method Collection Time Receive d Time (Source) Location / / Volume Laterality Blood 12/08/2021 10:55 12/08/2021 PM EDT 10:55 PM EDT Iker Cuevas MD POINT OF CARE TEST ORDERABLE S Performing Organization Address City/State/[place] [address] Heparin (unfractionated) Level (12/08/2021 10:03 PM EDT) athologist Signature Heparin UFH 0.18 IU/mL [facility] LABORATORY Comment: Heparin (anti-Xa) levels should [...] Organization Address City/State/ZIP [place] [address] (ABNORMAL) Troponin (12/08/2021 10:03 PM EDT) athologist Signature Troponin-T 0.92 (H) 0.00 - [facility] 0.00 ng/mL [facility] Comment: The 99th percentile for Troponin T is le ss than 0.01 ng/mL, any detectable cTnT concentration using this assay should be considered elevated. According to the third universal definit ion of myocardial infarction the following criteria with a clinical prese ntation consistent with acute myocardial ischemia meets the diagnosis for a myocardial infarction (DC). Detection of a rise and/or fall of [...] additional sample may be indicated. Reference: Third Houston Definition of Myocardial Infarction. Journal of the [employer] 2012;60:1581-98 Specimen Anatomical Collection Method Collection Time Receive d Time (Source) Location / / Volume Laterality Blood 12/08/2021 10:03 12/08/2021 PM EDT 10:31 PM EDT Resulting Agency Comment Spec In Lab Iker Cuevas MD CHEMISTRY ORDERABLES Performing Organization Address City/[facility]/[place] [address] (ABNORMAL) POCT Glucose (12/08/2021 8:22 PM EDT) P athologist Signature POC Glucose 429 (H) 65 - 199 [facility] mg/dL [facility] Comment: Supplemental ranges: <140 mg/dL before meals <180 mg/dL all other times of the day Specimen Anatomical Collection Method Collection Time Receive d Time (Source) Location / / Volume Laterality Blood 12/08/2021 8:22 PM 2 8:22 EDT PM EDT Iker Cuevas MD POINT OF CARE TEST ORDERABLE S Performing Organization Address [facility]/[place]IP [place] [address] (ABNORMAL) POCT Glucose (12/08/2021 7:06 PM EDT) athologist Signature POC Glucose 442 (H) 65 - 199 [place] [facility] mg/dL [facility] Comment: Supplemental ranges: <140 mg/dL before meals <180 mg/dL all other times of the day Specimen Anatomical Collection Method Collection Time Receive d Time (Source) Location / / Volume Laterality Blood 12/08/2021 7:06 PM 2 7:06 EDT PM EDT Iker Cuevas MD POINT OF CARE TEST ORDERABLE S Performing Organization Address City/[facility]/[place] [address] Magnesium (12/08/2021 6:02 PM EDT) P athologist Signature Magnesium 0.86 0.69 - 1.07 [facility] mmol/L [facility] Specimen Anatomical Collection Method Collection Time Receive d Time (Source) Location / / Volume Laterality Blood 12/08/2021 6:02 PM 2 6:36 EDT PM EDT Resulting Agency Comment Spec In Lab Iker Cuevas MD CHEMISTRY ORDERABLES Performing Organization Address City/State/ZIP [place] [address] (ABNORMAL) Basic Metabolic Panel (non-fasting) (12/08/2021 6:02 PM EDT) P athologist Signature Glucose Lvl 392 (H) 65 - 199 [facility] mg/dL [facility] Comment: Diabetes: >=200 mg/dL plus symp toms BUN 41 (H) 10 - 20 mg/dL [facility] Creatinine 1.44 0.80 - 1.50 mg/dL [facility] Sodium 138 135 - 145 mmol/L [facility] Potassium 4.5 3.5 - 5.0 mmol/L [facility] Comment: Please note: ??Patients with WBC >100,00 0 may have falsely elevated Potassium levels. ??For accurate Potassium quantif ication in these patients send serum separator tube (gold top) for subsequent determinations. ??Contact the Clinical Chemistry Laboratory if there are any qu estions. Chloride 102 98 - 107 mmol/L [facility] CO2 20 (L) 22 - 31 mmol/L [facility] Anion Gap 16 (H) 5 - 15 mmol/L [facility] Calcium 8.6 8.5 - 10.5 mg/dL [facility] Estimated GFR 47 (L) >=60 mL/min/1.73 m?? [facility] [...] Organization Address City/State/ZIP [place] [address] (ABNORMAL) Differential, Automated (12/08/2021 6:02 PM EDT) [facility] gist Method Time Signature Neutrophils % 89.5 % [facility] Neutr Abs (ANC) 13.97 (H) 1.70 - [facility] 6.10 [facility] x10(3)/[facility] LABORATORY Lymphocytes % 3.7 % [facility] Lymphocytes Abs 0.6 (L) 0.9 - 3.2 [facility] x10(3)/[facility] LABORATORY Monocytes % 6.1 % [facility] Monocyte Abs 1.0 (H) 0.3 - 0.9 [facility] x10(3)/[facility] LABORATORY Eosinophils % 0.0 % [facility] Eosinophils Abs 0.0 0.0 - 0.4 [facility] x10(3)/[facility] LABORATORY Basophils % 0.2 % [facility] Basophils Abs 0.0 0.0 - 0.1 [facility] x10(3)/[facility] LABORATORY Immature Gran % 0.50 % [facility] [...] Organization Address City/State/[place] [address] (ABNORMAL) Hemogram (12/08/2021 6:02 PM EDT) Analysis Performed At Patho logist Time Signature WBC 15.6 (H) 4.0 - 9.5 [facility] x[facility](3)/[facility] LABORATORY RBC 4.05 (L) 4.58 - [facility] SU 5.54 [facility] x10(6)/[facility] LABORATORY Hemoglobin 11.8 (L) 13.7 - [facility] 16.5 g/dL [facility] Hematocrit 35.8 (L) 40.5 - [facility] 48.5 % [facility] MCV 88.4 82.9 - [facility]1 [facility] LAB[facility] MCH 29.1 27.5 - [facility] 32.1 pg [facility] MCHC 33.0 32.0 - [facility] 35.7 g/dL [facility] Platelets 178 145 - 357 [facility] x10(3)/[facility] LABORATORY RDWSD 49.3 (H) 36.0 - [place] [facility] 45.0 [facility] LABORATORY RDWCV 15.1 (H) 11.4 - [facility] 13.8 % [facility] MPV 10.4 7.6 - 12.9 [facility] LABORATORY nRBC % Auto 0.0 % [facility] nRBC Abs Auto 0.000 0.000 - [facility] 0.000 [facility] x10(3)/[facility] LABORATORY Specimen Anatomical Collection Method Collection Time Receive d Time (Source) Location / / Volume Laterality Blood 12/08/2021 6:02 PM 2 6:36 EDT PM EDT Resulting Agency Comment Spec In Lab Morgan BROWN HEMATOLOGY ORDERABLES Performing Organization Address City/State/[place] [address] (ABNORMAL) Troponin (12/08/2021 6:02 PM EDT) P athologist Signature Troponin-T 0.89 (H) 0.00 - [facility] 0.00 ng/mL [facility] Comment: The 99th percentile for Troponin T is le ss than 0.01 ng/mL, any detectable cTnT concentration using this assay should be considered elevated. According to the third universal definit ion of myocardial infarction the following criteria with a clinical prese ntation consistent with acute myocardial ischemia meets the diagnosis for a myocardial infarction (DC). Detection of a rise and/or fall of [...] additional sample may be indicated. Reference: Third Houston Definition of Myocardial Infarction. Journal of the [employer] 2012;60:1581-98 Specimen Anatomical Collection Method Collection Time Receive d Time (Source) Location / / Volume Laterality Blood 12/08/2021 6:02 PM 2 6:36 EDT PM EDT Resulting Agency Comment Spec In Lab Iker Cuevas MD CHEMISTRY ORDERABLES Performing Organization Address City/State/ZIP [place] [address] COVID-19 PCR (12/08/2021 5:00 PM EDT) Patholo gist Method Time Signature SARS-CoV-2 Not Detected Not Detected [facility] RNA PCR [facility] Comment: This result should be interpreted [...] using the Simplexa COVID-19 Direct Assay by Specialty [employer] marcum as authorized by the FDA issued [...] Department of Pathology and Laboratory Medicine at [facility], certified under the Clinical Laboratory Improvement [...] fact sheets at the following FDA website: https://www.fda.gov/medical-devices/mzwhuujoslf-ziduxgt-0586-ajxmw-37-qmpbflrmm- cmv-fntmotqbimxyyw-rwgxbro-devices/rugov-vyglscnwtqc-ktdd SARS-CoV-2 Source HYDROGEN TREATER Swab [facility] Specimen (Source) Anatomical Collection Method Collection Time Re ceived Time Location / / Volume Laterality Nasopharyngeal Swab 12/08/2021 5:00 12/08 PM EDT 6:03 PM EDT Comment: Symptoms->Surveillance Resulting Agency Comment Spec In Lab Iker Cuevas MD MICROBIOLOGY - GENERAL ORDER [place] Performing Organization Address City/[facility]/ZIP [place] [address] EKG 12 Lead (12/08/2021 4:40 PM EDT) Component Value Ref Range Test Analysis Performed Pathologis t Method Time At Signature Ventricular rate 78 BPM MUSE SYSTEM Atrial Rate 78 BPM MUSE SYSTEM P-R Interval 152 ms MUSE SYSTEM QRS Duration 96 ms MUSE SYSTEM Q-T Interval 396 ms MUSE SYSTEM QTC Calculated 451 ms MUSE SYSTEM (Bezet) Calculated P [place] 44 degrees MUSE SYSTEM Calculated R [place] -31 degrees MUSE SYSTEM Calculated T [place] 124 degrees MUSE SYSTEM INTERPRETATION Normal sinus [...] Cuevas MD ECG ORDERABLES Performing Organization Address City/[facility]/ZIP Code Phon e Number MUSE SYSTEM (ABNORMAL) POCT Glucose (12/08/2021 4:34 PM EDT) P athologist Signature POC Glucose 400 (H) 65 - 199 [facility] mg/dL [facility] Comment: Supplemental ranges: <140 mg/dL before meals <180 mg/dL all other times of the day Specimen Anatomical Collection Method Collection Time Receive d Time (Source) Location / / Volume Laterality Blood 12/08/2021 4:34 PM 2 4:34 EDT PM EDT Iker Cuevas MD POINT OF CARE TEST ORDERABLE S Performing Organization Address City/State/ZIP [place] [address] documented in this encounter [...] Coronary atherosclerosis of unspecified type of vessel, levelock or graft Cardiomyopathy, ischemic Other specified forms [...] TIMES DAILY WITH MEALS, First dose on [facility] 12/08/21 at 1730, Until Discontinued, MEAL ASSOCIATED [...] mg (COMPLET ED) 1100 (Given - Provider: nAthony Fatima RN) 80 mg, Intravenous, ONCE, 1 [...] (Intra-Procedure), Routine niCARdipine (Cardene) (100 mcg/mL) dilution (SOLUTION COORDINATOR) (CANCELED) 1030 (Given - Provider: Vitaliy Nobles [...] episode. & nbsp; For persistent hypoglycemia, con television maintenance man longer-acting treatment for the duration of the [...]
Routine documented in this encounter Care Teams Shackler Relationship Specialty Start Date End Date Lovely Vicente MD PCP - General 04/16/[address] [place] [address] documented as of this encounter
--- OUTSIDE RECORDS SUMMARY | 2022-02-16 08:13 | XMS_ITS | Encounter Summary ---
:1945 Author Organization [facility] [place] [address] Care Team Providers Name Role Phone Lovely Vicente MD Primary Care Provider Encounter Details Date Type Department Care Team Description 07/28/2019 Office Visit Cardiology at [facility] Danette Maxwell Chronic systolic heart failu re; [facility] A, STACIE ASHD (arteriosclerotic heart disease); Drive [facility] S/P CABG x 3; [place], [place] MARIA VICTORIA (obstructive sleep apnea) on CPAP; [id number] CARDIOLOGY Mixed hyperlipidemia [phone] [place], [place] [address] Social History Tobacco Use Types [...] in this encounter Progress Notes Danette Maxwell, 1ST PRESSMAN - 07/28/2019 9:40 AM EST Images from [...] regurgitation present. 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 Post-op atrial fibrillation [id number] 7 (CHF, HTN, DM, vascular disease, thromboembolism) Amiodarone discontinued Continue coumadin INR managed by PCP 7. PAD 08/06/2017: Right 1st, 2nd, 3rd toe amputation 08/11/2017: Left??femoral arterial access, RLE??angiogram, Balloon angioplasty of R PT with Eleazar 2.5 x 80 10/25/2017: right popliteal-pedal bypass at [facility] 8. Hypothyrodism S/p thyroidectomy for [...] advised: Refer to EP (Dr. Mcelroy in [place]) 5. Heart Failure Clinic follow up scheduled for: 3 months with proBNP and BMP Danette Maxwell APRN 07/28/2019 documented in this encounter Plan of Treatment Upcoming Encounters Date Type Specialty Care Team Description 02/19/2022 Laboratory Appointment Lab 02/19/2022 Office Visit Cardiology Liz [facility] PA [facility] Cardiology Dept [place], [place] [address] (Wo rk) 03/26/2022 Office Visit Cardiology Vitaliy Nobles MD [facility] CARDIOLOGY [place], [place] [address] (Wo rk) documented as of this encounter Results (ABNORMAL) Basic Metabolic Panel (non-fasting) (07/28/2019 8:36 AM EST) athologist Signature Glucose Lvl 153 65 - 199 [facility] mg/dL [facility] Comment: Diabetes: >=200 mg/dL plus symp toms BUN 22 (H) 10 - 20 mg/dL [facility] Creatinine 1.05 0.80 - 1.50 [...] 107 mmol/L [facility] CO2 29 22 - 31 mmol/L [facility] Anion Gap 12 5 - 15 mmol/L [facility] Calcium 9.3 8.5 - 10.5 mg/dL [facility] Estimated GFR 70 >=60 mL/min/1.73 m?? [facility] Comment: The eGFR was calculated using the CKD-EP I equation. As with all creatinine based estimates of kidney function, eGFR values calculated with the CKD-EPI equation are not accurate in patients wi th acute kidney failure, extremes of body mass or the acutely ill. http://Waizy/DHMCnkf eGFR 81 >=60 mL/min/1.73 m?? [facility] Comment: The eGFR was calculated using the CKD-EP I equation. As with all creatinine based estimates of kidney function, eGFR values calculated with the CKD-EPI equation are not accurate in patients wi th acute kidney failure, extremes of body mass or the acutely ill. [email or web address]/[facility] HUGOnkf Specimen Anatomical Collection Method Collection Time Receive d Time (Source) Location / / Volume Laterality Blood specimen 07/28/2019 8:36 AM 020 8:46 (specimen) EST AM EST Resulting Agency Comment Spec In Lab Danette Maxwell STACIE CHEMISTRY ORDERABLES Performing Organization Address City/State/[place] [address] (ABNORMAL) pro-Brain Natriuretic Peptide (07/28/2019 8:36 AM EST) P athologist Signature ProBNP 647 (H) <=125 pg/mL [facility] Specimen Anatomical Collection Method Collection Time Receive d Time (Source) Location / / Volume Laterality Blood specimen 07/28/2019 8:36 AM 020 8:46 (specimen) EST AM EST Resulting Agency Comment Spec In Lab Danette Maxwell STACIE CHEMISTRY ORDERABLES Performing Organization Address City/State/[place] [address] documented in this encounter Visit Diagnoses Diagnosis Chronic systolic heart failure ASHD (arteriosclerotic heart disease) Coronary atherosclerosis of unspecified type of vessel, [place] or graft S/P CABG x 3 Postsurgical aortocoronary bypass status MARIA VICTORIA (obstructive sleep apnea) on CPAP Obstructive sleep apnea (adult) (pediatr ic) Mixed hyperlipidemia documented in this encounter Care Teams Longwall Headgate Operator Relationship Specialty Start Date End Date Lovely Vicente MD PCP - General 04/16/[address] [place] [address] documented as of this encounter
--- OUTSIDE RECORDS SUMMARY | 2022-02-16 08:13 | XMS_ITS | Encounter Summary ---
:1945 Author Organization [facility] [place] [address] Care Team Providers Name Role Phone Lovely Vicente MD Primary Care Provider Encounter Details Date Type Department Care Team Description 03/20/2021 Ancillary Procedure Radiology Library [place] [address] [place] [address] [phone] Social History Tobacco Use Types Packs/Day Years [...] Liz Poole PA [facility] er Cardiology Dept [place], [place] [address] (Wo rk) 03/26/2022 Office Visit Cardiology Vitaliy Nobles MD [facility] CARDIOLOGY [place], [place] [address] (Wo rk) documented as of [...] Organization Address City/State/ZIP Code Phon e Number [place], [place] documented in this encounter Visit Diagnoses Not on filedocumented in this encounter Care Teams Automatic Brine Mixer Operator Relationship Specialty Start Date End Date Lovely Vicente MD PCP - General 04/16/[address] [place] [address] documented as of this encounter
--- OUTSIDE RECORDS SUMMARY | 2022-02-16 08:13 | XMS_ITS | Encounter Summary ---
:1945 Author Organization [facility] [place] [address] Care Team Providers Name Role Phone Lovely Vicente MD Primary Care Provider Reason for Visit Reason Onset Date Comments Other 03/24/2019 cardiac clearance ne eded Encounter Details Date Type Department Care Team Description 03/24/2019 Telephone Cardiology at [facility] Danette Maxwell, Other (cardiac [facility] MANAGER FIXED INCOME clearance needed) [place] [phone] CARDIOLOGY [place], [place] [address] (Wo rk) Social History Tobacco [...] AM EDT Leonela from [facility] [place] called requesting cardiac clearance for this patient who is to have a colonoscopy on 04/04/19. He is on anticoagulation and they will need to bridge him. Their phone # [phone], fax# [phone]. Thank you. documented in this encounter Plan of Treatment Upcoming Encounters Date Type Specialty Care Team Description 02/19/2022 Laboratory Appointment Lab 02/19/2022 Office Visit Cardiology Liz Poole PA [facility] Cardiology Dept [place], [place] [address] (Wo rk) 03/26/2022 Office Visit Cardiology Vitaliy Nobles MD [facility] CARDIOLOGY [place], [place] [address] (Wo rk) documented as of this encounter Visit Diagnoses Not on filedocumented in this encounter Care Teams Change Attendant Relationship Specialty Start Date End Date Lovely Vicente MD PCP - General 04/16/[address] [place] [address] documented as of this encounter
--- OUTSIDE RECORDS SUMMARY | 2022-02-16 08:13 | XMS_ITS | Encounter Summary ---
:1945 Author Organization [facility] [place] [address] Care Team Providers Name Role Phone Lovely Vicente MD Primary Care Provider Encounter Details Date Type Department Care Team Description 02/19/[address] [facility] Ariana Wilder LPN [address] [place] [address] Social History Tobacco Use Types Packs/Day [...] 02/19/2022 Office Visit Cardiology Liz Poole PA [facility] Cardiology Dept [place], [place] [address] (Wo rk) 03/26/2022 Office Visit Cardiology Vitaliy Nobles MD [facility] ER CARDIOLOGY [place], [place] [address] (Wo rk) documented as of this encounter Visit Diagnoses Not on filedocumented in this encounter Care Teams Break And Load Operator Relationship Specialty Start Date End Date Lovely Vicente MD PCP - General 04/16/[address] [facility] [address] [place] [address] documented as of this encounter
--- OUTSIDE RECORDS SUMMARY | 2022-02-16 08:13 | XMS_ITS | Encounter Summary ---
:1945 Author Organization [facility] [place] [address] Care Team Providers Name Role Phone Lovely Vicente MD Primary Care Provider Reason for Visit Reason Onset Date Comments Follow-up 07/13/2018 amiodarone discontin ued Encounter Details Date Type Department Care Team Description 07/13/2018 Telephone Cardiology at [facility] Martha Comer, Follow-up (amiodarone [facility] RN discontin ued) [place] [address] Social History Tobacco Use Types Packs/Day [...] RN - 07/13/2018 8:57 AM EST Per TRENCH PIPE LAYER HELPER Hans call placed to the home number for the pt. confirmed that the pt is still taking the amiodarone. Pt is to stop the amiodarone. Pt taking it for post op a-fib, therapy was supposed to be for 30 days. Message given to his . She will give him the message and will have him call with any questions. Call placed to the [facility] pharmacy in [place] to discontinue it there as well. Med list updated. documented in this encounter Plan of Treatment Upcoming Encounters Date Type Specialty Care Team Description 02/19/2022 Laboratory Appointment Lab 02/19/2022 Office Visit Cardiology Liz Poole PA [facility] er Cardiology Dept [place], [place] [address] (Wo rk) 03/26/2022 Office Visit Cardiology Vitaliy Nobles MD [facility] ER CARDIOLOGY [place], [place] [address] (Wo rk) documented as of this encounter Visit Diagnoses Not on filedocumented in this encounter Care Teams Director Of Agriculture Relationship Specialty Start Date End Date Lovely Vicente MD PCP - General 04/16/[address] [place] [address] documented as of this encounter
--- OUTSIDE RECORDS SUMMARY | 2022-02-16 08:13 | XMS_ITS | Encounter Summary ---
:1945 Author Organization [facility] [place] [address] Care Team Providers Name Role Phone Lovely Vicente MD Primary Care Provider Encounter Details Date Type Department Care Team Description 01/16/2019 Laboratory Appointment Lab 3L [facility] [place] [address] Social History Tobacco Use Types Packs/Day Years [...] [facility] er Cardiology Dept [place], [place] [address] (Wo rk) 03/26/2022 Office Visit Cardiology Vitaliy Nobles MD [facility] ER CARDIOLOGY [place], [place] [address] (Wo rk) documented as of [...] athologist Signature ProBNP 780 (H) <=125 pg/mL [facility] Specimen Anatomical Collection Method Collection Time Receive d Time (Source) Location / / Volume Laterality Blood specimen 01/16/2019 7:49 AM 019 7:55 (specimen) EDT AM EDT Resulting Agency Comment Spec In Lab Danette Maxwell APRN CHEMISTRY ORDERABLES Performing Organization Address City/State/[place] [address] (ABNORMAL) Basic Metabolic Panel (non-fasting) (01/16/2019 7:49 AM EDT) athologist Signature Glucose Lvl 105 65 - 199 [facility] mg/dL [facility] Comment: Diabetes: >=200 mg/dL plus symp toms BUN 25 (H) 10 - 20 mg/dL [facility] Creatinine 1.08 0.80 - 1.50 mg/dL [facility] [...] estions. Chloride 106 98 - 107 mmol/L [facility] CO2 26 22 - 31 mmol/L [facility] Anion Gap 13 5 - 15 mmol/L [facility] Calcium 9.2 8.5 - 10.5 mg/dL [facility] Estimated GFR 68 >=60 mL/min/1.73 m?? [facility] Comment: The eGFR was calculated using the CKD-EP I equation. As with all creatinine based estimates of kidney function, eGFR values calculated with the CKD-EPI equation are not accurate in patients wi th acute kidney failure, extremes of body mass or the acutely ill. http://Lendino/[facility] CITYnkf eGFR 79 >=60 mL/min/1.73 m?? [facility] Comment: The eGFR was calculated using the CKD-EP I equation. As with all creatinine based estimates of kidney function, eGFR values calculated with the CKD-EPI equation are not accurate in patients wi th acute kidney failure, extremes of body mass or the acutely ill. http://Lendino/[facility] CITYnkf Specimen Anatomical Collection Method Collection Time Receive d Time (Source) Location / / Volume Laterality Blood specimen 01/16/2019 7:49 AM 019 7:55 (specimen) EDT AM EDT Resulting Agency Comment Spec In Lab Danette Maxwell APRN CHEMISTRY ORDERABLES Performing Organization Address City/State/[place] [address] documented in this encounter Visit Diagnoses Diagnosis Chronic systolic heart failure documented in this encounter Care Teams Candy Packer Relationship Specialty Start Date End Date Lovely Vicente MD PCP - General 04/16/[address] [place] [address] documented as of this encounter
--- OUTSIDE RECORDS SUMMARY | 2022-02-16 08:13 | XMS_ITS | Encounter Summary ---
:1945 Author Organization [facility] Address [place] [place] [address] Care Team Providers Name Role Phone Lovely Vicente MD Primary Care Provider Reason for Referral Diagnostic Test (Routine) - Closed Specialty Diagnoses / Procedures Referred By Contact Refer red To Contact Cardiology Diagnoses Chronic systolic heart failure Danette Maxwell APRN [facility] Non-Inv Card Lab Procedures Echocardiogram Transthoracic(Leb) [facility] [address] [place] [address] [place] [address] Referral ID Status Reason Start Date Expiration Date Visits V isits Requested Authorized [id number] Closed Specialty 07/17/2019 09/14/2019 1 1 Service Requested Encounter Details Date Type Department Care Team Description 01/16/2019 Office Visit Cardiology [place] [facility] Danette Maxwell, Chronic systolic heart failu re; [facility]ACIE Cardiomyopathy, ischemic; Drive [facility] Hx of thyroid cancer; [place], [place] [address] [place] (arteriosclerotic heart disease); [address] CARDIOLOGY MARIA VICTORIA (obstructive sleep apnea) on CPAP [phone] [place], [place] [address] (Wo rk) Social History Tobacco Use Types [...] K+ 4.6 today 6. Post-op atrial fibrillation [id number] (CHF, HTN, DM, vascular disease, thromboembolism) Amiodarone discontinued Continue coumadin INR managed by PCP. 2.1 today 7. PAD 08/06/2017: Right 1st, 2nd, 3rd toe amputation 08/11/2017: Left??femoral arterial access, RLE??angiogram, Balloon angioplasty of R PT with Eleazar 2.5 x 80 10/25/2017: right popliteal-pedal bypass at [facility] 8. Hypothyrodism S/p thyroidectomy for goiter [...] [facility] er Cardiology Dept [place], [place] [address] (Wo rk) 03/26/2022 Office Visit Cardiology Vitaliy Nobles MD [facility] ER CARDIOLOGY [place], [place] [address] (Wo rk) documented as of this encounter Results ECHOCARDIOGRAM COMPLETE W CONTRAST (07/28/2019 8:19 AM EST) P athologist Signature EF 40 [facility] Specimen (Source) Anatomical Location Collection Method / Collectio n Time Received Time / Laterality Volume 07/28/2019 Narrative [facility] - 07/28/2019 8:38 AM EST Procedure: ?Transthoracic Echocardiogram Patient: ?NATALYA Mccollum ? (Age): 1945(74y) Med Rec#: ? [id number] ?Sex: ?M ? Site Loc: ? [facility] ?Ht / Wt: ??172(cm)/81(kg) Pt. Loc: ?Echo Lab ?BSA: ?1.94 Study Date: ?? 07/28/2019 ?Pt. Type: Outpatient Tape: ? Referring: MARY ELLEN Reading: Ifeanyi Truong ([id number]) Deputy Register Of Deeds: Fadumo Flanagan RDCS, REGINA Diagnosis: *Chronic systolic [...] E-wave Vmax ?1 ?m/sec ? MV deceleration bxpt967.5 ? msec ? MV A-wave Vmax ?1 [...] ? Pulmonic Valve/Qp:Qs ?Value ?Units (Range) ? WI end-diastolic Vma1.1 ?m/sec ? Wall Motion: Segment Name ?Rest ? Base-Anteroseptal ?? Normal ? Base-Anterior ? Normal ? Base-Anterolateral ??Normal ? Base-Posterolateral Normal ? Base-Inferior ? Akinetic ? Base-Inferoseptal ?? Normal ? Mid-Anteroseptal ?Normal ? Mid-Anterior ?Hypokinetic ? Mid-Anterolateral ?? Normal ? Mid-Posterolateral ??Normal ? Mid-Inferior ?Hypokinetic ? Mid-Inferoseptal ?Normal ? Landing-Septal ? Normal ? Landing-Anterior ? Hypokinetic ? Landing-Lateral ?Normal ? Landing-Inferior ? Akinetic ? Landing-Tip ?Hypokinetic ? This report has been electronically sign ed by: _ Ifeanyi Truong M.D. ? 07/28/2019 0 8:38:01 Images reviewed and interpretation [facility] Procedure Note Ifeanyi Truong MD - 07/28/2019Formatt ing of this note might be different from the original. Procedure: Transthoracic Echocardiogram Patient: NATALYA MCBRIDE(Age): [birth year]74y) Med Rec#: [id number] Sex: M Site Loc: [facility] Ht / Wt: 172(cm)/81(kg) Pt. Loc: Echo Lab BSA: 1.94 Study Date: 07/28/2019 Pt. Type: Outpati ent Tape: Referring: MARY ELLEN Reading: Ifeanyi Truong ([id number]) Deputy Register Of Deeds: Fadumo Flanagan RDCS, FASE Diagnosis: *Chronic systolic [...] MV E-wave Vmax 1 m/sec MV deceleration nuvn798.5 msec MV A-wave Vmax 1 m/sec MV [...] 0.7 ratio Pulmonic Valve/Qp:Qs Value Units (Range) WI end-diastolic Vma1.1 m/sec Wall Motion: Segment Name Rest Base-Anteroseptal Normal Base-Anterior Normal Base-Anterolateral Normal Base-Posterolateral Normal Base-Inferior Akinetic Base-Inferoseptal Normal Mid-Anteroseptal Normal Mid-Anterior Hypokinetic Mid-Anterolateral Normal Mid-Posterolateral Normal Mid-Inferior Hypokinetic Mid-Inferoseptal Normal Landing-Septal Normal Landing-Anterior Hypokinetic Landing-Lateral Normal Landing-Inferior Akinetic Landing-Tip Hypokinetic This report has been electronically sign ed by: _ Ifeanyi Truong M.D. 07/28/2019 08:38:0 1 Images reviewed and interpretation verif iewanda [facility] Cardiac Ultrasound Laboratory Danette Maxwell APRN ECHO ORDERABLES Performing Organization Address City/State/ZIP Code Phon e Number [facility] SYSTEM (ABNORMAL) Basic Metabolic Panel (non-fasting) (01/16/2019 7:49 AM EDT) P athologist Signature Glucose Lvl 105 65 - 199 [facility] mg/dL [facility] Comment: Diabetes: >=200 mg/dL plus symp toms BUN 25 (H) 10 - 20 mg/dL [facility] Creatinine 1.08 0.80 - 1.50 mg/dL [facility] Sodium 145 135 - 145 mmol/L [facility] Potassium 4.7 3.5 - 5.0 mmol/L [facility] Comment: Please note: ??Patients with WBC >100,00 0 may have falsely elevated Potassium levels. ??For accurate Potassium quantif ication in these patients send serum separator tube (gold top) for subsequent determinations. ??Contact the Clinical Chemistry Laboratory if there are any qu estions. Chloride 106 98 - 107 mmol/L [facility] CO2 26 22 - 31 mmol/L [facility] Anion Gap 13 5 - 15 mmol/L [facility] Calcium 9.2 8.5 - 10.5 mg/dL [facility] Estimated GFR 68 >=60 mL/min/1.73 m?? [facility] Comment: The eGFR was calculated using the CKD-EP I equation. As with all creatinine based estimates of kidney function, eGFR values calculated with the CKD-EPI equation are not accurate in patients wi th acute kidney failure, extremes of body mass or the acutely ill. http://FoxyTasks/[employer]nkf eGFR 79 >=60 mL/min/1.73 m?? [facility] Comment: The eGFR was calculated using the CKD-EP I equation. As with all creatinine based estimates of kidney function, eGFR values calculated with the CKD-EPI equation are not accurate in patients wi th acute kidney failure, extremes of body mass or the acutely ill. http://FoxyTasks/DHnkf Specimen Anatomical Collection Method Collection Time Receive d Time (Source) Location / / Volume Laterality Blood specimen 01/16/2019 7:49 AM 019 7:55 (specimen) EDT AM EDT Resulting Agency Comment Spec In Lab Danette Maxwell APRN CHEMISTRY ORDERABLES Performing Organization Address City/State/[place] [address] (ABNORMAL) pro-Brain Natriuretic Peptide (01/16/2019 7:49 AM EDT) P athologist Signature ProBNP 780 (H) <=125 pg/mL [facility] Specimen Anatomical Collection Method Collection Time Receive d Time (Source) Location / / Volume Laterality Blood specimen 01/16/2019 7:49 AM 019 7:55 (specimen) EDT AM EDT Resulting Agency Comment Spec In Lab Danette Maxwell APRN CHEMISTRY ORDERABLES Performing Organization Address City/State/ZIP Code [place] [address] documented in this encounter Visit Diagnoses Diagnosis Chronic systolic heart failure Cardiomyopathy, ischemic Other specified forms of chronic ischemi c heart disease Hx of thyroid cancer Personal history of malignant neoplasm o f thyroid ASHD (arteriosclerotic heart disease) Coronary atherosclerosis of unspecified type of vessel, [place] or graft MARIA VICTORIA (obstructive sleep apnea) on CPAP Obstructive sleep apnea (adult) (pediatr ic) Chronic systolic heart failure documented in this encounter Care Teams Farm Loan Inspector Relationship Specialty Start Date End Date Lovely Vicente MD PCP - General 04/16/[address] [place] [address] documented as of this encounter
--- OUTSIDE RECORDS SUMMARY | 2022-02-16 08:13 | XMS_ITS | Encounter Summary ---
:1945 Author Organization [facility] [place] [address] Care Team Providers Name Role Phone Lovely Vicente MD Primary Care Provider Encounter Details Date Type Department Care Team Description 12/08/2021 External Results Non-Invasive Cardiology Lab Mar y None [facility] [place] [address] Social History Tobacco Use Types Packs/Day [...] [facility] er Cardiology Dept [place], [place] [address] (Wo rk) 03/26/2022 Office Visit Cardiology Vitaliy Nobles MD [facility] ER CARDIOLOGY [place], [place] [address] (Wo rk) documented as of [...] filedocumented in this encounter Care Teams Head Setter Relationship Specialty Start Date End Date Lovely Vicente MD PCP - General 04/16/[address] [place] [address] documented as of this encounter
--- OUTSIDE RECORDS SUMMARY | 2022-02-16 08:13 | XMS_ITS | Encounter Summary ---
:1945 Author Organization [facility] [place] [address] Care Team Providers Name Role Phone Lovely Vicente MD Primary Care Provider Encounter Details Date Type Department Care Team Description 08/26/2018 Transcribe Orders Laboratory Lovely Vicente, Deferred diagnosis [facility] on axis I [address] [address] [place], [place] [phone] [address] Social History Tobacco Use Types Packs/Day Years [...] Cardiology Liz Poole PA [facility] er Cardiology Dept [place], [place] [address] (Wo rk) 03/26/2022 Office Visit Cardiology Vitaliy Nobles MD [facility] ER CARDIOLOGY [place], [place] [address] (Wo rk) documented as of this encounter Visit Diagnoses Diagnosis Deferred diagnosis on axis I Other unknown and unspecified cause of m orbidity or mortality documented in this encounter Care Teams Raschel Knitting Machine Operator Relationship Specialty Start Date End Date Lovely Vicente MD PCP - General 04/16/[address] [place] [address] documented as of this encounter
--- OUTSIDE RECORDS SUMMARY | 2022-02-16 08:13 | XMS_ITS | Encounter Summary ---
:1945 Author Organization [facility] [place] [address] Care Team Providers Name Role Phone Lovely Vicente MD Primary Care Provider Encounter Details Date Type Department Care Team Description 08/15/2018 Office Visit Cardiology at [facility] Danette Maxwell Chronic systolic heart failu re; [facility] A, BENEFITS ASSISTANT Cardiomyopathy, ischemic; [facility] ASCVD (arteriosclerotic card iovascular disease); [place], [place] Essential hypertension; [phone] CARDIOLOGY MARIA VICTORIA on CPAP [phone] [place], [place] [address] Social History Tobacco Use Types [...] in this encounter Progress Notes Danette Maxwell, BENEFITS ASSISTANT - 08/15/2018 9:00 AM EST Images from [...] is always better at therapy Call to [facility] PT Denies lightheadedness or dizziness [...] K+ 4.6 today 6. Post-op atrial fibrillation [id number] (CHF, HTN, DM, vascular disease, thromboembolism) Amiodarone discontinued Continue coumadin INR managed by PCP. 2.1 today 7. PAD 08/06/2017: Right 1st, 2nd, 3rd toe amputation 08/11/2017: Left??femoral arterial access, RLE??angiogram, Balloon angioplasty of R PT with Eleazar 2.5 x 80 10/25/2017: right popliteal-pedal bypass at [facility] 8. Hypothyrodism S/p thyroidectomy for goiter [...] Liz Poole PA [facility] Cardiology Dept [place], [place] [address] (Wo rk) 03/26/2022 Office Visit Cardiology Vitaliy Nobles MD [facility] CARDIOLOGY [place], [place] [address] (Wo rk) documented as of this encounter Results Lipid Panel (08/15/2018 8:04 AM EST) athologist Signature Chol, Total 75 mg/dL [facility] Comment: Lower Risk: <200 mg/dL Average Risk: 200-239 mg/dL Higher Risk: >nw=860 mg/dL Triglycerides 185 mg/dL [facility] Comment: Average Risk/Lower Risk: <150 mg/dL Borderline High Risk: 150-199 mg/dL High Risk: 200-499 mg/dL Very High Risk: >qf=523 mg/dL HDL 32 mg/dL [facility] Comment: Males: ?? Higher Risk: <40 mg/dL Females: ?? HIgher Risk: <50 mg/dL LDL Cholesterol 6 mg/dL [facility] Comment: Lowest Risk: <100 mg/dL Lower Risk: 100-129 mg/dL Borderline High Risk: 130-159 mg/dL High Risk: 160-189 mg/dL Very High Risk: >ux=607 mg/dL Chol/HDL Ratio 2.3 ratio [facility] Lipid Interpretation See Note [facility] Comment: Lipid management should be guided by a p atient? s ASCVD risk, goals and preferences. ACC/AHA Guidelines recommend high intens ity statin if clinical ASCVD or LDL greater than or equal to 190 mg/dL. http://VisuaLogistic TechnologiesurTrident Energy.com/YPM-VQQ-Dqsqmvzuc Adults aged 40-75 with LDL 70-189 mg/dL should have their 10 year ASCVD risk estimated with the ACC/AHA ASCVD risk es timator http://tools.acc.org/GOULZ-Yxcb-Twrmlhig r/ Statin should be discussed if risk [...] Organization Address City/State/[place] [address] (ABNORMAL) Basic Metabolic Panel (non-fasting) (08/15/2018 8:04 AM EST) athologist Signature Glucose Lvl 116 65 - 199 [facility] mg/dL [facility] Comment: Diabetes: >=200 mg/dL plus symp toms BUN 21 (H) 10 - 20 mg/dL [facility] Creatinine 1.08 0.80 - 1.50 mg/dL [facility] Sodium 144 135 - 145 mmol/L [facility] Potassium 4.6 3.5 - 5.0 mmol/L [facility] [...] - 15 mmol/L [facility] Calcium 9.0 8.5 - 10.5 mg/dL [facility] Estimated GFR 68 >=60 mL/min/1.73 m?? [facility] Comment: The eGFR was calculated using the CKD-EP I equation. As with all creatinine based estimates of kidney function, eGFR values calculated with the CKD-EPI equation are not accurate in patients wi th acute kidney failure, extremes of body mass or the acutely ill. http://iGoOn s.r.l./[facility] eGFR 79 >=60 mL/min/1.73 m?? [facility] Comment: The eGFR was calculated using the CKD-EP I equation. As with all creatinine based estimates of kidney function, eGFR values calculated with the CKD-EPI equation are not accurate in patients wi th acute kidney failure, extremes of body mass or the acutely ill. http://iGoOn s.r.l./DHMCnkf Specimen Anatomical Collection Method Collection Time Receive d Time (Source) Location / / Volume Laterality Blood specimen 08/15/2018 8:04 AM 019 8:20 (specimen) EST AM EST Resulting Agency Comment Spec In Lab Danette Maxwell APRN CHEMISTRY ORDERABLES Performing Organization Address City/[facility]/ZIP Code Phon e Number [address] (ABNORMAL) pro-Brain Natriuretic Peptide (08/15/2018 8:04 AM EST) P athologist Signature ProBNP 1,797 (H) <=125 [facility] pg/mL [facility] Specimen Anatomical Collection Method Collection Time Receive d Time (Source) Location / / Volume Laterality Blood specimen 08/15/2018 8:04 AM 019 8:20 (specimen) EST AM EST Resulting Agency Comment Spec In Lab Danette Maxwell APRN CHEMISTRY ORDERABLES Performing Organization Address City/State/[place] [address] documented in this encounter Visit Diagnoses Diagnosis Chronic systolic heart failure Cardiomyopathy, ischemic Other specified forms of chronic ischemi c heart disease ASCVD (arteriosclerotic cardiovascular d isease) Unspecified cardiovascular disease Essential hypertension Unspecified essential hypertension MARIA VICTORIA on CPAP Obstructive sleep apnea (adult) (pediatr ic) documented in this encounter Care Teams Access Specialist Relationship Specialty Start Date End Date Lovely Vicente MD PCP - General 04/16/[address] [place] [address] documented as of this encounter
--- OUTSIDE RECORDS SUMMARY | 2022-02-16 08:13 | XMS_ITS | Encounter Summary ---
:1945 Author Organization [facility] [place] [address] Care Team Providers Name Role Phone Lovely Vicente MD Primary Care Provider Encounter Details Date Type Department Care Team Description 11/07/2019 [place] [facility] Danette Maxwell (arteriosclerotic heart disease); (TeleHealth) [facility] STACIE Gomes Cardiomyopathy, ischemic; Drive [facility] S/P CABG x 3; [place], [place] MARIA VICTORIA (obstructive sleep apnea) on CPAP [phone] CARDIOLOGY [phone] [place], [place] [address] Social History Tobacco Use Types [...] regurgitation present. 07/07/2019 - 07/21/2019 Zio Patch Normalizer The patient had a minimum heart rate [...] at last check 6. Post-op atrial fibrillation [id number] (CHF, HTN, DM, vascular disease, thromboembolism) Amiodarone discontinued Continue coumadin INR managed by PCP 7. PAD 08/06/2017: Right 1st, 2nd, 3rd toe amputation 08/11/2017: Left??femoral arterial access, RLE??angiogram, Balloon angioplasty of R PT with Eleazar 2.5 x 80 10/25/2017: right pop[facility]al[facility]pedal [facility] at [facility] Continue Coumadin 8. Hypothyrodism S/p thyroidectomy [...] PA [facility] er Cardiology Dept [place], [place] [address] (Wo rk) 03/26/2022 Office Visit Cardiology Vitaliy Nobles MD [facility] CARDIOLOGY [place], [place] [address] (Wo rk) documented as of this encounter Visit Diagnoses Diagnosis ASHD (arteriosclerotic heart disease) Coronary atherosclerosis of unspecified type of vessel, [place] or graft Cardiomyopathy, ischemic Other specified forms of chronic ischemi c heart disease S/P CABG x 3 Postsurgical aortocoronary bypass status MARIA VICTORIA (obstructive sleep apnea) on CPAP Obstructive sleep apnea (adult) (pediatr ic) documented in this encounter Care Teams Parts Department Manager Relationship Specialty Start Date End Date Lovely Vicente MD PCP - General 04/16/[address] [place], [place] [address] [place] [address] documented as of this encounter
--- OUTSIDE RECORDS SUMMARY | 2022-02-16 08:13 | XMS_ITS | Encounter Summary ---
:1945 Author Organization [facility] [place] [address] Care Team Providers Name Role Phone Lovely Vicente MD Primary Care Provider Encounter Details Date Type Department Care Team Description 08/15/2018 Laboratory Lab 3L Barbara Wiseman systoli c heart failure; Appointment [facility] ASCVD (ar teriosclerotic cardiovascular disease) [place] [id number] Social History Tobacco Use Types Packs/Day Years [...] Poole PA [facility] er Cardiology Dept [place], [place] 0[address] (Wo rk) 03/26/2022 Office Visit Cardiology Vitaliy Nobles MD [facility] ER CARDIOLOGY [place], [place] [address] (Wo rk) documented as of [...] Signature Glucose Lvl 116 65 - 199 [facility] mg/dL [facility] Comment: Diabetes: >=200 mg/dL plus symp toms BUN 21 (H) 10 - 20 mg/dL [facility] Creatinine 1.08 0.80 - 1.50 mg/dL [facility] Sodium 144 135 - 145 mmol/L [facility] Potassium 4.6 3.5 - 5.0 mmol/L [facility] [...] Anion Gap 15 5 - 15 mmol/L [facility] Calcium 9.0 8.5 - 10.5 mg/dL [facility] Estimated GFR 68 >=60 mL/min/1.73 m?? [facility] Comment: The eGFR was calculated using the CKD-EP I equation. As with all creatinine based estimates of kidney function, eGFR values calculated with the CKD-EPI equation are not accurate in patients wi th acute kidney failure, extremes of body mass or the acutely ill. http://[employer]/DHnkf eGFR 79 >=60 mL/min/1.73 m?? [facility] Comment: The eGFR was calculated using the CKD-EP I equation. As with all creatinine based estimates of kidney function, eGFR values calculated with the CKD-EPI equation are not accurate in patients wi th acute kidney failure, extremes of body mass or the acutely ill. http://[employer]/DHMCnkf Specimen Anatomical Collection Method Collection Time Receive d Time (Source) Location / / Volume Laterality Blood specimen 08/15/2018 8:04 AM 019 8:20 (specimen) EST AM EST Resulting Agency Comment Spec In Lab Danette A Alexandria STACIE CHEMISTRY ORDERABLES Performing Organization Address City/State/ZIP [place] [address] Lipid Panel (08/15/2018 8:04 AM EST) P athologist Signature Chol, Total 75 mg/dL [facility] Comment: Lower Risk: <200 mg/dL Average Risk: 200-239 mg/dL Higher Risk: >qb=603 mg/dL Triglycerides 185 mg/dL [facility] Comment: Average Risk/Lower Risk: <150 mg/dL Borderline High Risk: 150-199 mg/dL High Risk: 200-499 mg/dL Very High Risk: >sf=150 mg/dL HDL 32 mg/dL [facility] Comment: Males: ?? Higher Risk: <40 mg/dL Females: ?? HIgher Risk: <50 mg/dL LDL Cholesterol 6 mg/dL [facility] Comment: Lowest Risk: <100 mg/dL Lower Risk: 100-129 mg/dL Borderline High Risk: 130-159 mg/dL High Risk: 160-189 mg/dL Very High Risk: >io=279 mg/dL Chol/HDL Ratio 2.3 ratio [facility] Lipid Interpretation See Note [facility] Comment: Lipid management should be guided by a p atient? s ASCVD risk, goals and preferences. ACC/AHA Guidelines recommend high intens ity statin if clinical ASCVD or LDL greater than or equal to 190 mg/dL. http://tinyurl.com/MJL-NRN-Zuaqodoif Adults aged 40-75 with LDL 70-189 mg/dL should have their 10 year ASCVD risk estimated with the ACC/AHA ASCVD risk es timator http://tools.acc.org/WFZPW-Trwz-Pqopntcv r/ Statin should be discussed if risk [...] Address City/State/[place] [address] (ABNORMAL) pro-Brain Natriuretic Peptide (08/15/2018 8:04 AM EST) P athologist Signature ProBNP 1,797 (H) <=125 [facility] pg/mL [facility] Specimen Anatomical Collection Method Collection Time Receive d Time (Source) Location / / Volume Laterality Blood specimen 08/15/2018 8:04 AM 019 8:20 (specimen) EST AM EST Resulting Agency Comment Spec In Lab Danette Maxwell APRN CHEMISTRY ORDERABLES Performing Organization Address City/State/[place] [address] documented in this encounter Visit Diagnoses Diagnosis Chronic systolic heart failure ASCVD (arteriosclerotic cardiovascular d isease) Unspecified cardiovascular disease documented in this encounter Care Teams Pipe Fitter [employer] Relationship Specialty Start Date End Date Lovely Vicente MD PCP - General 04/16/[address] [place] [address] documented as of this encounter
--- OUTSIDE RECORDS SUMMARY | 2022-02-16 08:13 | XMS_ITS | Encounter Summary ---
:1945 Author Organization [facility] [place] [address] Care Team Providers Name Role Phone Lovely Vicente MD Primary Care Provider Encounter Details Date Type Department Care Team Description 03/20/2021 Ancillary Procedure Radiology Library [place] [address] [place] [address] [phone] Social History Tobacco Use Types Packs/Day Years [...] PA [facility] er Cardiology Dept [place], [place] [address] (Wo rk) 03/26/2022 Office Visit Cardiology Vitaliy Nobles MD [facility] CARDIOLOGY [place], [place] [address] (Wo rk) documented as of [...] Organization Address City/State/ZIP Code Phon e Number [place], [place] documented in this encounter Visit Diagnoses Not on filedocumented in this encounter Care Teams Server Security Administrator Relationship Specialty Start Date End Date Lovely Vicente MD PCP - General 04/16/[address] [place] [address] documented as of this encounter
--- OUTSIDE RECORDS SUMMARY | 2022-02-16 08:13 | XMS_ITS | Encounter Summary ---
:1945 Author Organization [facility] [place] [address] Care Team Providers Name Role Phone Lovely Vicente MD Primary Care Provider Reason for Visit Reason Comments Skin Check Encounter Details Date Type Department Care Team Description 07/06/2018 Office Visit Dermatology at [facility], Rigoberto Yarbrough (actinic keratosis); MD SHAY Quick III (seborrheic keratosis); [address] [facility] History of melanoma; [place] [address] Skin exam for malignant neoplasm [phone] [facility]-DERMATOLGY [place], [place] [address] Social History Tobacco Use Types [...] PATIENT CLINIC NOTE Date of service: 07/06/2018 oDn Fatima : 1945 Provider: Rigoberto Garcia MD [...] leg - he had vascular surgery in [facility] while he lost several toes, they saved [...] of and acting as a scribe for RGIOBERTO GARCIA III, MD. I performed the above scribed service and agree with the accuracy of the documentation in this encounter. Rigoberto Garcia MD Section of Dermatology [facility] documented in this encounter Plan of Treatment Upcoming Encounters Date Type Specialty Care Team Description 02/19/2022 Laboratory Appointment Lab 02/19/2022 Office Visit Cardiology Liz Poole PA [facility] Cardiology [place], [place] [address] (Wo rk) 03/26/2022 Office Visit Cardiology Vitaliy Nobles MD [facility] CARDIOLOGY [place], [place] [address] (Wo rk) documented as of this encounter Visit Diagnoses Diagnosis AK (actinic keratosis) Actinic keratosis SK (seborrheic keratosis) Other seborrheic keratosis History of melanoma Personal history of malignant melanoma o f skin Skin exam for malignant neoplasm Screening for malignant neoplasm of the skin documented in this encounter Care Teams Manager University Relationship Specialty Start Date End Date Lovely Vicente MD PCP - General 04/16/[address] [place] [address] documented as of this encounter
--- OUTSIDE RECORDS SUMMARY | 2022-02-16 08:13 | XMS_ITS | Encounter Summary ---
:1945 Author Organization [facility] Address [facility] [address] [place] [address] Care Team Providers Name Role Phone Lovely Vicente MD Primary Care Provider Encounter Details Date Type Department Care Team Description 01/02/2020 Office Visit Dermatology at Rigoberto Forman ctinic keratoses; Abdelrahman HOOPER MD History of melanoma; [address] [facility] History of dysplastic nevus; [place] [address] Multiple benign nevi; [phone] [facility] Seborrheic yossi [place]; RD-DERMATOLGY Skin exam for malignant neoplasm [place], [place] [address] Social History Tobacco Use Types [...] encounter. Rigoberto Garcia MD Section of Dermatology [facility] documented in this encounter Plan of Treatment Upcoming Encounters Date Type Specialty Care Team Description 02/19/2022 Laboratory Appointment Lab 02/19/2022 Office Visit Cardiology Liz Poole PA [facility] [place]iology [place], [place] [address] (Wo rk) 03/26/2022 Office Visit Cardiology Vitaliy Nobles MD [facility] CARDIOLOGY [place], [place] [address] (Wo rk) documented as of [...] skin documented in this encounter Care Teams Greenkeeper Relationship Specialty Start Date End Date Lovely Vicente MD PCP - General 04/16/[address] [place] [address] documented as of this encounter
--- OUTSIDE RECORDS SUMMARY | 2022-02-16 08:13 | XMS_ITS | Encounter Summary ---
:1945 Author Organization [place] [address] Care Team Providers Name Role Phone Lovely Vicente MD Primary Care Provider Encounter Details Date Type Department Care Team Description 04/18/2018 Laboratory Appointment Lab 3L [facility] [place] [address] Social History Tobacco Use Types Packs/Day Years [...] [facility] Cardiology Dept [place], [place] [address] (Wo rk) 03/26/2022 Office Visit Cardiology Vitaliy Nobles MD [facility] CARDIOLOGY [place], [place] [address] (Wo rk) documented as of [...] Signature Total Protein 7.6 6.1 - 8.0 [facility] RYAN gm/dL [facility] Albumin 4.0 3.2 - 5.2 [facility] [place] gm/dL [facility] AST 36 0 - 39 [facility] unit/L [facility] ALT 27 0 - 55 [facility] unit/L [facility] Alk Phos 96 40 - 120 [facility] [employer] unit/L [facility] Total 0.7 0.2 - 1.3 C3L3B Digital Bilirubin mg/dL [facility] Bili, Direct 0.1 0.0 - 0.3 [facility] RYAN mg/dL [facility] Specimen Anatomical Collection Method Collection Time Receive d Time (Source) Location / / Volume Laterality Blood specimen Venous Draw / 04/18/2018 9:19 AM 2017 9:44 (specimen) Unknown EDT AM EDT Resulting Agency Comment Spec In Lab Danette Maxwell APRN CHEMISTRY ORDERABLES Performing Organization Address City/State/[place] [address] TSH (04/18/2018 9:19 AM EDT) athologist Signature TSH 1.77 0.27 - 4.20 C3L3B Digital mlU/ML [facility] Specimen Anatomical Collection Method Collection Time Receive d Time (Source) Location / / Volume Laterality Blood specimen Venous Draw / 04/18/2018 9:19 AM 2017 9:44 (specimen) Unknown EDT AM EDT Resulting Agency Comment Spec In Lab Danette Maxwell APRN CHEMISTRY ORDERABLES Performing Organization Address City/State/[place] [address] (ABNORMAL) Basic Metabolic Panel (non-fasting) (04/18/2018 9:19 AM EDT) P athologist Signature Glucose Lvl 167 65 - 199 [facility] mg/dL [facility] Comment: Diabetes: >=200 mg/dL plus symp toms BUN 18 10 - 20 mg/dL [facility] Creatinine 1.19 0.80 - 1.50 mg/dL [facility] Sodium 147 (H) 135 - 145 mmol/L [facility] [...] estions. Chloride 101 98 - 107 mmol/L [facility] CO2 23 22 - 31 mmol/L [facility] Anion Gap 23 (H) 5 - 15 mmol/L [facility] Calcium 9.3 8.5 - 10.5 mg/dL [facility] Estimated GFR 61 >=60 mL/min/1.73 m?? [facility] Comment: The eGFR was calculated using the CKD-EP I equation. As with all creatinine based estimates of kidney function, eGFR values calculated with the CKD-EPI equation are not accurate in patients wi th acute kidney failure, extremes of body mass or the acutely ill. http://[employer]/DHMCnkf eGFR 70 >=60 mL/min/1.73 m?? [facility] Comment: The eGFR was calculated using the CKD-EP I equation. As with all creatinine based estimates of kidney function, eGFR values calculated with the CKD-EPI equation are not accurate in patients wi th acute kidney failure, extremes of body mass or the acutely ill. http://[employer]/DHMCnkf Specimen Anatomical Collection Method Collection Time Receive d Time (Source) Location / / Volume Laterality Blood specimen 04/18/2018 9:19 AM 018 9:34 (specimen) EDT AM EDT Resulting Agency Comment Spec In Lab Danette Maxwell STACIE CHEMISTRY ORDERABLES Performing Organization Address City/[facility]/[place] [address] (ABNORMAL) pro-Brain Natriuretic Peptide (04/18/2018 9:19 AM EDT) P athologist Signature ProBNP 2,199 (H) <=125 [facility] pg[facility]mL [facility] Specimen Anatomical Collection Method Collection Time Receive d Time (Source) Location / / Volume Laterality Blood specimen 04/18/2018 9:19 AM 018 9:34 (specimen) EDT AM EDT Resulting Agency Comment Spec In Lab Danette A Hans STACIE CHEMISTRY ORDERABLES Performing Organization Address City/[facility]/[place] [address] documented in this encounter Visit Diagnoses Diagnosis Chronic systolic heart failure documented in this encounter Care Teams Superintendent Overhead Distribution Relationship Specialty Start Date End Date Lovely Vicente MD PCP - General 04/16/[address] [place] [address] documented as of this encounter
--- OUTSIDE RECORDS SUMMARY | 2022-02-16 08:13 | XMS_ITS | Encounter Summary ---
:1945 [place] [address] Care Team Providers Name Role Phone Lovely Vicente MD Primary Care Provider Encounter Details Date Type Department Care Team Description 08/15/2018 Laboratory Appointment Lab 3L [place] [address] Social History Tobacco Use Types Packs/Day [...] [facility] er Cardiology Dept [place], [place] [address] (Wo rk) 03/26/2022 Office Visit Cardiology Vitaliy Nobles MD [facility] CARDIOLOGY [place], [place] [address] (Wo rk) documented as of this encounter Procedures Procedure Name Priority Date/Time Associated Diagnosis Comme nts PROTHROMBIN TIME Routine 08/15/2018 8:04 AM Resul ts for this EST procedure are i n the results section. documented in this encounter Results (ABNORMAL) Prothrombin Time (08/15/2018 8:04 AM EST) P athologist Signature PT 24.0 (H) 9.4 - 12.5 [facility] LABORATORY INR 2.1 [facility] Comment: An INR [...] Organization Address City/State/[place] [address] documented in this encounter Visit Diagnoses Not on filedocumented in this encounter Care Teams Qa Tester Relationship Specialty Start Date End Date Lovely Vicente MD PCP - General 04/16/[address] [place] [address] documented as of this encounter
--- OUTSIDE RECORDS SUMMARY | 2022-02-16 08:13 | XMS_ITS | Encounter Summary ---
:1945 Author Organization [facility] [place] [address] Care Team Providers Name Role Phone Lovely Vicente MD Primary Care Provider Encounter Details Date Type Department Care Team Description 04/16/2021 Laboratory Appointment Lab 3L [facility] systolic [facility] [place] [id number] Social History Tobacco Use Types Packs/Day Years [...] [facility] er Cardiology Dept [place], [place] [address] (Wo rk) 03/26/2022 Office Visit Cardiology Vitaliy Nobles MD [facility] ER CARDIOLOGY [place], [place] [address] (Wo rk) documented as of [...] athologist Signature ProBNP 523 (H) <=124 pg/mL [facility] Specimen Anatomical Collection Method Collection Time Receive d Time (Source) Location / / Volume Laterality Blood 04/16/2021 9:58 AM EDT 10:02 AM EDT Resulting Agency Comment Spec In Lab Zulma Plunkett MD CHEMISTRY ORDERABLES Performing Organization Address City/State/[place] [address] (ABNORMAL) Basic Metabolic Panel (non-fasting) (04/16/2021 9:58 AM EDT) athologist Signature Glucose Lvl 77 65 - 199 [facility] mg/dL [facility] Comment: Diabetes: >=200 mg/dL plus symp toms BUN 23 (H) 10 - 20 mg/dL [facility] Creatinine 1.26 0.80 - 1.50 mg/dL [facility] Sodium 140 135 - 145 mmol/L [facility] Potassium 5.2 (H) 3.5 - 5.0 mmol/L [facility] Comment: Please note: ??Patients with WBC >100,00 0 may have falsely elevated Potassium levels. ??For accurate Potassium quantif ication in these patients send serum separator tube (gold top) for subsequent determinations. ??Contact the Clinical Chemistry Laboratory if there are any qu estions. Chloride 103 98 - 107 mmol/L [facility] CO2 28 22 - 31 mmol/L [facility] Anion Gap 9 5 - 15 mmol/L [facility] Calcium 9.3 8.5 - 10.5 mg/dL [facility] Estimated GFR 55 (L) >=60 mL/min/1.73 m?? [facility] Comment: This patient? s estimated [...] Address City/State/[place] [address] documented in this encounter Visit Diagnoses Diagnosis Chronic systolic heart failure documented in this encounter Care Teams Hotel Director Relationship Specialty Start Date End Date Lovely Vicente MD PCP - General 04/16/[address] [place] [address] documented as of this encounter
--- OUTSIDE RECORDS SUMMARY | 2022-02-16 08:13 | XMS_ITS | Encounter Summary ---
:1945 [place] [address] Care Team Providers Name Role Phone Lovely Vicente MD Primary Care Provider Encounter Details Date Type Department Care Team Description 07/12/2019 Office Visit Dermatology at [facility], Rigoberto Yarbrough (actinic keratosis); MD SHAY Quick III (seborrheic keratosis); [address] [facility] Multiple benign nevi; [place] [address] History of melanoma [phone] [facility] [place], [place] [address] Social History Tobacco Use Types [...] PA [facility] er Cardiology Dept [place], [place] [address] (Wo rk) 03/26/2022 Office Visit Cardiology Vitaliy Nobles MD [facility] CARDIOLOGY [place], [place] [address] (Wo rk) documented as of this encounter Visit Diagnoses Diagnosis AK (actinic keratosis) Actinic keratosis SK (seborrheic keratosis) Other seborrheic keratosis Multiple benign nevi Benign neoplasm of skin, site unspecifie d History of melanoma Personal history of malignant melanoma o f skin documented in this encounter Care Teams Insurance Claims Specialist Relationship Specialty Start Date End Date Lovely Vicente MD PCP - General 04/16/[address] [place] [address] documented as of this encounter
--- OUTSIDE RECORDS SUMMARY | 2022-02-16 08:13 | XMS_ITS | Encounter Summary ---
:1945 Author Organization [facility] [place] [address] Care Team Providers Name Role Phone Lovely Vicente MD Primary Care Provider Reason for Visit Reason Comments Follow-up Skin Check Encounter Details Date Type Department Care Team Description 01/06/2018 Office Visit Dermatology at Rigoberto Formantipmirna nevi; Abdelrahman HOOPER MD History of melanoma; [address] [facility] [place] [address] [facility]-DERMATOL[facility] [place], [place] [address] Social History Tobacco Use Types [...] encounter. Rigoberto Garcia MD Section of Dermatology [facility] documented in this encounter Plan of Treatment Upcoming Encounters Date Type Specialty Care Team Description 02/19/2022 Laboratory Appointment Lab 02/19/2022 Office Visit Cardiology Liz Poole PA [facility] er Cardiology Dept [place], [place] [address] (Wo rk) 03/26/2022 Office Visit Cardiology Vitaliy Nobles MD [facility] CARDIOLOGY [place], [place] [address] (Wo rk) documented as of this encounter Visit Diagnoses Diagnosis Multiple nevi Benign neoplasm of skin, site unspecifie d History of melanoma Personal history of malignant melanoma o f skin Seborrheic keratosis Other seborrheic keratosis documented in this encounter Care Teams Riprap Placing Supervisor Relationship Specialty Start Date End Date Lovely Vicente MD PCP - General 04/16/[address] [place] [address] documented as of this encounter
--- OUTSIDE RECORDS SUMMARY | 2022-02-16 08:13 | XMS_ITS | Encounter Summary ---
:1945 Author Organization [facility] [place] [address] Care Team Providers Name Role Phone Lovely Vicente MD Primary Care Provider Reason for Referral Diagnostic Test (Routine) - Specialty Diagnoses / Procedures Referred By Contact Refer red To Contact Cardiology Diagnoses Chronic systolic heart failure Danette Maxwell APRN [facility] Non-Inv Card Lab Procedures Echocardiogram Transthoracic(Leb) [facility] [address] [phone] [place] [address] Referral ID Status Reason Start Date Expiration Visits Visits Date Requested Authorized [id number] Specialty 08/15/2018 08/15/2018 1 1 Service Requested Reason for Visit Diagnostic Test (Routine) - Specialty Diagnoses / Procedures Referred By Contact Nawaf owen To Contact Cardiology Diagnoses Chronic systolic heart failure Danette Maxwell APRN [facility] Non-Inv Card Lab Procedures Echocardiogram Transthoracic(Leb) [facility] [place] [place] [address] [place] [address] Referral ID Status Reason Start Date Expiration Visits Visits Date Requested Authorized [id number] Specialty 08/15/2018 08/15/2018 1 1 Service Requested Encounter Details Date Type Department Care Team Description 08/15/2018 Hospital Encounter Non-Invasive Danette Maxwell Chron ic systolic Cardiology Lab Barbara Gomes APRN heart failure [facility] [place] [address] [place], [place] [phone] (Work) [phone] Social History Tobacco Use Types Packs/Day Years [...] Cardiology Liz Poole PA [facility] Cardiology Dept [place], [place] [address] (Wo rk) 03/26/2022 Office Visit Cardiology Vitaliy Nobles MD [facility] CARDIOLOGY [place], [place] [address] (Wo rk) documented as of [...] Mccollum ? (Age): 1945(73y) Med Rec#: ? [id number] ?Sex: ?M ? Site Loc: ? [facility] ?Ht / Wt: ??172(cm)/81(kg) Pt. Loc: ?Echo Lab ?BSA: ?1.94 Study Date: ?? 08/15/2018 ?Pt. Type: Outpatient Tape: ? Referring: MARY ELLEN Reading: Scott Ortega ([id number]) Java User Interface Developer: Laura Sargent Diagnosis: *Chronic systolic (congestive) heart [...] E-wave Vmax ?1.2 ?m/sec ? MV deceleration vfmi190.4 ? msec ? MV A-wave Vmax ?0.7 [...] ? Mid-Inferior ?Hypokinetic ? Mid-Inferoseptal ?Hypokinetic ? [place]-Septal ? Akinetic ? [place]-Anterior ? Hypokinetic ? [place]-Lateral ?Akinetic ? [place]-Inferior ? Hypokinetic ? [place]-Tip ?Akinetic ? This report has been electronically sign ed by: _ Scott Ortega M.D. ? 08/15/2018 08:17:26 Images reviewed and interpretation elvie wanda [facility] Cardiac Ultrasound Laboratory Procedure Note Scott Ortega MD - 08/15/2018Format ting of this note might be different from the original. Procedure: Transthoracic Echocardiogram Patient: NATALYA MCBRIDE(Age): [birth year]73y) Med Rec#: [id number] Sex: M Site Loc: [facility] Ht / Wt: 172(cm)/81(kg) Pt. Loc: Echo Lab BSA: 1.94 Study Date: 08/15/2018 Pt. Type: Outpati ent Tape: Referring: MARY ELLEN Reading: Scott Ortega ([id number]) Java User Interface Developer: Laura Sargent Diagnosis: *Chronic systolic (congestive) heart [...] MV E-wave Vmax 1.2 m/sec MV deceleration drxr398.4 msec MV A-wave Vmax 0.7 m/sec MV [...] Akinetic Mid-Posterolateral Akinetic Mid-Inferior Hypokinetic Mid-Inferoseptal Hypokinetic [place]-Septal Akinetic [place]-Anterior Hypokinetic [place]-Lateral Akinetic [place]-Inferior Hypokinetic [place]-Tip Akinetic This report has been electronically sign ed by: _ Scott Ortega M.D. 08/15/2018 08:17: 26 Images reviewed and interpretation verif ied [facility] Cardiac Ultrasound Laboratory Danette Maxwell APRN [...] Routine documented in this encounter Care Teams Print Operator Relationship Specialty Start Date End Date Lovely Vicente MD PCP - General 04/16/[address] [place] [address] [address] [place] [address] documented as of this encounter
--- OUTSIDE RECORDS SUMMARY | 2022-02-16 08:13 | XMS_ITS | Encounter Summary ---
:1945 Author Organization [facility] [address] Care Team Providers Name Role Phone Lovely Vicente MD Primary Care Provider Reason for Referral Diagnostic Test (Routine) - Closed Specialty Diagnoses / Procedures Referred By Contact Refer red To Contact Diagnoses Chronic systolic heart failure Liz Poole PA Procedures Echocardiogram Transthoracic([facility]) [facility] [place] [address] Referral ID Status Reason Start Date Expiration Date Visits V isits Requested Authorized [id number] Closed Specialty 04/17/2021 10/14/2021 1 1 Service Requested Encounter Details Date Type Department Care Team Description 04/16/2021 Office Visit Cardiology at [facility] Liz Poole, Chronic systolic heart [facility] [place] [address] Cardiology Dept [phone] [place], [place] [address] Social History Tobacco Use Types [...] was feeling good. 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 Post-op atrial fibrillation [id number] 7 (CHF, HTN, DM, vascular disease, thromboembolism) On warfarin - recent labile INR Will discuss with PCP, option of Eliquis 7. PAD 08/06/2017: Right 1st, 2nd, 3rd toe amputation 08/11/2017: Left??femoral arterial access, RLE??angiogram, Balloon angioplasty of R PT 10/25/2017: right popliteal[facility]pedal bypass at [facility] 8. Hypothyrodism S/p thyroidectomy for goiter [...] Poole PA [facility] Cardiology Dept [place], [place] [address] (Mikayla alcaraz) 03/26/2022 Office Visit Cardiology Vitaliy Nobles MD [facility] CARDIOLOGY [place], [place] [address] (Mikayla alcaraz) Scheduled Orders Name Type Priority Associated Order Schedule Diagnoses Echocardiogram Echocardiography Routine Chronic systolic Expec vlad: Transthoracic([facility] or heart failure 10/15 NL) (Approximate), Expires: 04/16/2022 documented as of this encounter Results (ABNORMAL) Basic Metabolic Panel (non-fasting) (04/16/2021 9:58 AM EDT) athologist Signature Glucose Lvl 77 65 - 199 [facility] mg/dL [facility]OR[facility] Comment: Diabetes: >=200 mg/dL plus symp toms BUN 23 (H) 10 - 20 mg/dL [facility] Creatinine 1.26 0.80 - 1.50 mg/dL [facility] Sodium 140 135 - 145 mmol/L [facility] Potassium 5.2 (H) 3.5 - 5.0 mmol/L [facility] Comment: Please note: ??Patients with WBC >100,00 0 may have falsely elevated Potassium levels. ??For accurate Potassium quantif ication in these patients send serum separator tube (gold top) for subsequent determinations. ??Contact the Clinical Chemistry Laboratory if there are any qu estions. Chloride 103 98 - 107 mmol/L [facility] CO2 28 22 - 31 mmol/L [facility] Anion Gap 9 5 - 15 mmol/L [facility] Calcium 9.3 8.5 - 10.5 mg/dL [facility] Estimated GFR 55 (L) >=60 mL/min/1.73 m?? [facility] Comment: This patient? s [...] Organization Address City/State/[place] [address] (ABNORMAL) pro-Brain Natriuretic Peptide (04/16/2021 9:58 AM EDT) P athologist Signature ProBNP 523 (H) <=124 pg/mL [facility] Specimen Anatomical Collection Method Collection Time Receive d Time (Source) Location / / Volume Laterality Blood 04/16/2021 9:58 AM EDT 10:02 AM EDT Resulting Agency Comment Spec In Lab Zulma Plunkett MD CHEMISTRY ORDERABLES Performing Organization Address City/State/[place] [address] documented in this encounter Visit Diagnoses Diagnosis Chronic systolic heart failure documented in this encounter Care Teams Carpet Renovator Relationship Specialty Start Date End Date Lovely Viecnte MD PCP - General 04/16/[address] [place] [address] documented as of this encounter
--- OUTSIDE RECORDS SUMMARY | 2022-02-16 08:13 | XMS_ITS | Encounter Summary ---
:1945 Author Organization [facility] [place] [address] Care Team Providers Name Role Phone Lovely Vicente MD Primary Care Provider Reason for Visit Reason Comments Establish Care Atrial Fibrillation Congestive Heart Failure Cardiomyopathy Encounter Details Date Type Department Care Team Description 09/06/[facility] Osvaldo STRANGE [address] [place], [place] CARDIOLOGY DEPT. [address] [place] [address] [phone] Social History Tobacco Use Types Packs/Day Years [...] today For any questions, call my office: [phone] To access your health care information, go to the web at: [email or web address] (you will need to register) For educational materials: [email or web address] [email or web address], Clinical Cardiac Electrophysiology, [facility], [facility] A Healthy Heart: After Your Visit [...] least 2 servings of fish a week. Mchenry, mackerel, mcfadden, sardines, and chunk light tuna [...] irregular heartbeat. After you call 911, the concrete saw operator may tell you to chew 1 [...] more? Visit our health information library at [email or web address]. You can also view health information on [employer], your personal patient account. Log in or sign up today. Enter F075 in the search box to learn more about A Healthy Heart: After Your Visit. ?? [phone] [employer] documented in this encounter Progress Notes Karel Mcelroy MD - 09/06/2019 2:20 PM EST Images from the original note were not included. Section of Cardiology/Cardiac Electrophysiology [facility] Clinical Cardiac Electrophysiology Consult Patient ID Don Fatima 1945 [id number] Don Fatima is referred to the EP clinic by Danette Maxwell APRN PhD Chief Complaint Dyspnea on exertion Ischemic cardiomyopathy History This is a 74 y.o. male following up/being seen in clinic for evaluation for ongoing anticoagulation. He has a Qruel7Kver score of ~ 6-7. 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, can walk [...] on phone: None Gets together: None Attends restorationist service: None Active member of club or [...] reviewed the ECG: sinus rhythm, 72 bpm, MD 140 ms, QRS 100 ms, QT 400 [...] EP clinic KAREL MCELROY MD Cardiac Electrophysiology [facility] T: [phone] F: [phone] 35 minutes of this 40 minute encounter were spent in counselling, as described above Cc: MD Danette Cr APRN PhD Janett Espino DPM documented in this encounter Plan of Treatment Upcoming Encounters Date Type Specialty Care Team Description 02/19/2022 Laboratory Appointment Lab 02/19/2022 Office Visit Cardiology Liz [facility] Cardiology Dept [place], [place] [address] (Wo rk) 03/26/2022 Office Visit Cardiology Vitaliy Nobles MD [facility] CARDIOLOGY [place], [place] [address] (Wo rk) documented as of [...] 446 ms MUSE SYSTEM (Bezet) Calculated P [place] 37 degrees MUSE SYSTEM Calculated R [place] -23 degrees MUSE SYSTEM Calculated T [place] 116 degrees MUSE SYSTEM INTERPRETATION Normal sinus rhythm MUSE SYSTEM Inferior infarct (cited on or before 25-JAN-2013) ST & T wave abnormality, consider anterolateral ischemia Abnormal ECG When compared with ECG of 19-AUG-2017 10:23, No significant change was found Confirmed by MD Castellon Daniel ([id number]) on 09/08/2019 10:22:4 7 AM Specimen Anatomical [...] documented in this encounter Care Teams Assistant Farm Operations Manager Relationship Specialty Start Date End Date Lovely Vicente MD PCP - General 04/16/[address] [place] [address] documented as of this encounter
--- OUTSIDE RECORDS SUMMARY | 2022-02-16 08:13 | XMS_ITS | Encounter Summary ---
:1945 Author Organization [facility] Address [facility] [place] [address] Care Team Providers Name Role Phone Lovely Vicente MD Primary Care Provider Reason for Referral Diagnostic Test (Routine) - Specialty Diagnoses / Procedures Referred By Contact Refer red To Contact Cardiology Diagnoses Chronic systolic heart failure Danette Maxwell APRN [facility] Non-Inv Card Lab Procedures Echocardiogram Transthoracic(Leb) [facility] [place] [address] [place] [address] Referral ID Status Reason Start Date Expiration Visits Visits Date Requested Authorized [id number] Specialty 08/15/2018 08/15/2018 1 1 Service Requested Encounter Details Date Type Department Care Team Description 04/18/2018 Office Visit Cardiology at [facility] Danette Maxwell Chronic systolic heart failu re; [facility] STACIE Gomes On amiodarone therapy; [facility] Ischemic cardiomyopathy; [place], [place] DR ONOFRE (arteriosclerotic cardiovascular d isease) [address] CARDIOLOGY [phone] [place], [place] [address] Social History Tobacco Use Types Packs/Day Years [...] in this encounter Progress Notes Danette Maxwell, RECEIVING TELLER - 04/18/2018 10:40 AM EDT ID and [...] x 80 10/25/2017: right popliteal-pedal bypass at [place] [facility] ? Plan: 1. A review of the [...] Office Visit Cardiology Liz Poole PA [facility] Cardiology Dept [place], [place] [address] (Wo rk) 03/26/2022 Office Visit Cardiology Vitaliy Nobles MD [facility] CARDIOLOGY [place], [place] [address] ([facility]) documented as of this encounter Results ECHOCARDIOGRAM COMPLETE W CONTRAST (08/15/2018 7:55 AM EST) athologist Signature EF 35 HEARTLAB SYSTEM Specimen (Source) Anatomical Location Collection Method / Collectio n Time Received Time / Laterality Volume 08/15/2018 Narrative HEARTLAB SYSTEM - 08/15/2018 8:18 AM EST Procedure: ?Transthoracic Echocardiogram Patient: ?NATALYA Mccollum ? (Age): 1945(73y) Med Rec#: ? [id number] ?Sex: ?M ? Site Loc: ? [facility] ?Ht / Wt: ??172(cm)/81(kg) Pt. Loc: ?Echo Lab ?BSA: ?1.94 Study Date: ?? 08/15/2018 ?Pt. Type: Outpatient Tape: ? Referring: MARY ELLEN Reading: Scott Ortega ([id number]) Lens Edge Grinder Machine: Laura Sargent Diagnosis: *Chronic systolic (congestive) heart [...] E-wave Vmax ?1.2 ?m/sec ? MV deceleration ibpz247.4 ? msec ? MV A-wave Vmax ?0.7 [...] ? Mid-Inferior ?Hypokinetic ? Mid-Inferoseptal ?Hypokinetic ? [place]-Septal ? Akinetic ? [place]-Anterior ? Hypokinetic ? [place]-Lateral ?Akinetic ? [place]-Inferior ? Hypokinetic ? [place]-Tip ?Akinetic ? This report has been electronically sign ed by: _ Scott Ortega M.D. ? 08/15/2018 08:17:26 Images reviewed and interpretation elvie hwang [facility] Cardiac Ultrasound Laboratory Procedure Note Scott Ortega MD - 08/15/2018Format ting of this note might be different from the original. Procedure: Transthoracic Echocardiogram Patient: NATALYA MCBRIDE(Age): [birth year]73y) Med Rec#: [id number] Sex: M Site Loc: [facility] Ht / Wt: 172(cm)/81(kg) Pt. Loc: Echo Lab BSA: 1.94 Study Date: 08/15/2018 Pt. Type: Outpati ent Tape: Referring: MARY ELLEN Reading: Scott Ortega ([id number]) Lens Edge Grinder Machine: Laura Sargent Diagnosis: *Chronic systolic (congestive) heart [...] MV E-wave Vmax 1.2 m/sec MV deceleration yzbj416.4 msec MV A-wave Vmax 0.7 m/sec MV [...] Akinetic Mid-Posterolateral Akinetic Mid-Inferior Hypokinetic Mid-Inferoseptal Hypokinetic [place]-Septal Akinetic [place]-Anterior Hypokinetic [place]-Lateral Akinetic [place]-Inferior Hypokinetic [place]-Tip Akinetic This report has been electronically sign ed by: _ Scott Ortega M.D. 08/15/2018 08:17: 26 Images reviewed and interpretation verholger hwang [facility] Cardiac Ultrasound Laboratory Danette Maxwell APRN ECHO ORDERABLES Performing Organization Address City/State/ZIP Code Phon e Number HEARTLAB SYSTEM (ABNORMAL) Basic Metabolic Panel (non-fasting) (04/18/2018 9:19 AM EDT) P athologist Signature Glucose Lvl 167 65 - 199 [facility] mg/dL [facility] Comment: Diabetes: >=200 mg/dL plus symp toms BUN 18 10 - 20 mg/dL [facility] Creatinine 1.19 0.80 - 1.50 mg/dL [facility] Sodium 147 (H) 135 - 145 mmol/L [facility] Potassium 4.8 3.5 - 5.0 mmol/L [facility] [...] 31 mmol/L [facility] Anion Gap 23 (H) 5 - 15 mmol/L [facility] Calcium 9.3 8.5 - 10.5 mg/dL [facility] Estimated GFR 61 >=60 mL/min/1.73 m?? [facility] Comment: The eGFR was calculated using the CKD-EP I equation. As with all creatinine based estimates of kidney function, eGFR values calculated with the CKD-EPI equation are not accurate in patients wi th acute kidney failure, extremes of body mass or the acutely ill. http://[employer]/DHnkf eGFR 70 >=60 mL/min/1.73 m?? [facility] Comment: The eGFR was calculated using the CKD-EP I equation. As with all creatinine based estimates of kidney function, eGFR values calculated with the CKD-EPI equation are not accurate in patients wi th acute kidney failure, extremes of body mass or the acutely ill. http://[employer]/DHMCnkf Specimen Anatomical Collection Method Collection Time Receive d Time (Source) Location / / Volume Laterality Blood specimen 04/18/2018 9:19 AM 018 9:34 (specimen) EDT AM EDT Resulting Agency Comment Spec In Lab Danette Maxwell STACIE CHEMISTRY ORDERABLES Performing Organization Address City/State/ZIP Code Phon e Number [address] (ABNORMAL) pro-Brain Natriuretic Peptide (04/18/2018 9:19 AM EDT) P athologist Signature ProBNP 2,199 (H) <=125 [facility] pg/mL [facility]OR[facility] Specimen Anatomical Collection Method Collection Time Receive d Time (Source) Location / / Volume Laterality Blood specimen 04/18/2018 9:19 AM 018 9:34 (specimen) EDT AM EDT Resulting Agency Comment Spec In Lab Danette Gomes [place] STACIE CHEMISTRY ORDERABLES Performing Organization Address City/[facility]/[place] [address] documented in this encounter Visit Diagnoses Diagnosis Chronic systolic heart failure On amiodarone therapy Ischemic cardiomyopathy Other specified forms of chronic ischemi c heart disease ASCVD (arteriosclerotic cardiovascular d isease) Unspecified cardiovascular disease Chronic systolic heart failure documented in this encounter Care Teams Energy Audit Advisor Relationship Specialty Start Date End Date Lovely Vicente MD PCP - General 04/16/[address] [place] [address] documented as of this encounter
--- OUTSIDE RECORDS SUMMARY | 2022-02-16 08:13 | XMS_ITS | Encounter Summary ---
:1945 Author Organization [facility] [place] [address] Care Team Providers Name Role Phone Lovely Vicente MD Primary Care Provider Encounter Details Date Type Department Care Team Description 07/28/2019 Laboratory Appointment Lab 3L [facility] systolic [facility] [place] [address] Social History Tobacco Use Types Packs/Day Years [...] [facility] Cardiology Dept [place], [place] [address] (Wo rk) 03/26/2022 Office Visit Cardiology Vitaliy Nobles MD [facility] ER CARDIOLOGY [place], [place] [address] (Wo rk) documented as of [...] Organization Address City/State/ZIP Code Phon e Number [place] [phone] (ABNORMAL) Basic Metabolic Panel (non-fasting) (07/28/2019 8:36 AM EST) P athologist Signature Glucose Lvl 153 65 - 199 [facility] mg/dL [facility] Comment: Diabetes: >=200 mg/dL plus symp toms BUN 22 (H) 10 - 20 mg/dL [facility] Creatinine 1.05 0.80 - 1.50 mg/dL [facility] Sodium 141 135 - [...] Anion Gap 12 5 - 15 mmol/L [facility] Calcium 9.3 8.5 - 10.5 mg/dL [facility] Estimated GFR 70 >=60 mL/min/1.73 m?? [facility] Comment: The eGFR was calculated using the CKD-EP I equation. As with all creatinine based estimates of kidney function, eGFR values calculated with the CKD-EPI equation are not accurate in patients wi th acute kidney failure, extremes of body mass or the acutely ill. http://[employer] LAWTONnkf eGFR 81 >=60 mL/min/1.73 m?? [facility] Comment: The eGFR was calculated using the CKD-EP I equation. As with all creatinine based estimates of kidney function, eGFR values calculated with the CKD-EPI equation are not accurate in patients wi th acute kidney failure, extremes of body mass or the acutely ill. http://[employer]WTONnkf Specimen Anatomical Collection Method Collection Time Receive d Time (Source) Location / / Volume Laterality Blood specimen 07/28/2019 8:36 AM 020 8:46 (specimen) EST AM EST Resulting Agency Comment Spec In Lab Danette Maxwell APRN CHEMISTRY ORDERABLES Performing Organization Address City/State/[place] [address] documented in this encounter Visit Diagnoses Diagnosis Chronic systolic heart failure documented in this encounter Care Teams Manager Fast Food Relationship Specialty Start Date End Date Lovely Vicente MD PCP - General 04/16/[address] [place] [address] documented as of this encounter
--- OUTSIDE RECORDS SUMMARY | 2022-02-16 08:13 | XMS_ITS | Encounter Summary ---
:1945 Author Organization [facility] [place] [address] Care Team Providers Name Role Phone Lovely Vicente MD Primary Care Provider Reason for Visit Auth/Cert Specialty Diagnoses / Procedures Referred By Contact Refer red To Contact Diagnoses NSTEMI Procedures emerg ipi Referral ID Status Reason Start Date Expiration Date Visits Requ ested Visits Authorized [id number] 1 1 Encounter Details Date Type Department Care Team Description 12/10/2021 Surgery Bead Forming Machine Operator Asa Coulter MD CARDIAC CATHETERIZATION [facility] [place] [address] [place] [address] [phone] (Wo rk) Social History Tobacco Use Types [...] Don Fatima Patient Age: 76 y.o. Language: Bulgarian Race: White Ethnicity: Not nor Admit date: [...] Peter PA-C Kelly LaFlamme PA-C Cardiovascular Medicine [phone] Discharge Diagnoses (Hospital Problems) and Secondary Diagnoses [...] 3.75 guiding catheter and a 3.5 Fr [place] 20 Mhz using Manual pullback. Imaging was successful. Image quality was good. The ostial LCX showed moderate diffuse atherosclerotic plaque with scattered three quadrant calcification. Measurements were performed after pre-dilation. Post Intervention: The stent was well expanded and apposed. Intravascular Ultrasound was performed in the distal LM using a 7 Fr EBU 3.75 guiding catheter and a 3.5 Fr [place] 20 Mhz using Manual pullback. Imaging was successful. Image quality was good. The distal LM showed moderate diffuse atherosclerotic plaque. Post Intervention: The stent was well expanded and apposed. Indication for Intervention: Coronary intervention was indicated for primary therapy for an acute myocardial infarction. The priority for the procedure was Urgent. The [facility] indication for the procedure was NSTE-ACS. [...] may require modification of this regimen. Consult [facility] Interventional Cardiology for questions. The 1 year [...] vascular congestion and cardiomegaly. ?? TTE from [facility] 12/08/21 ? Prior Cardiac Studies: TTE [...] prior thyroidectomy in 2012 who presented to [facility] with 1 week progressing breathlessness with [...] 03/2021 with Liz Poole PA-C. ?? At [facility], respiratory distress with hypoxia 86% on [...] and diet drinks did not cause his [place]. This is what his thought was the [...] appointments: During 8am-5pm Wednesday through Wednesday call [phone] to speak with a nurse in the cardiology clinic All other times call [phone] and ask to speak to the instrument assembler continuity editor. Return to work: One week Driving: No driving for 48 hours after catheterization. Follow up Appointments: PCP Lovely Vicente MD [phone] to see patient at the end of December for annual check up. Patient to see Dr. Lorenzana at 1120 am at December 19 for a post hospital check up. Assistant Professor Of Archaeology Dr. De Oliveira to see you in [facility]. Left a message for office to set a date and time. Please call [phone] Nobles to see the patient for a same day cath in 2-3 weeks from now. Office to call with a date and time. For questions please call [phone] Home oxygen therapy: N/A Arrangements for VNA/home care: none Future Appointments and Orders Future Orders Complete By Expires Basic Metabolic Panel (non-fasting) [LAB15 Custom] 12/19/2021 (Approximate) 12/12/2022 Process Instructions: INCLUDES: Calcium, BUN, Creat, GFR, Glucose, Lytes Scheduling Instructions: Comments: Questions: Referral to Cardiac Rehab [[id number] Custom] As directed Process Instructions: If no [...] appointments: During 8am-5pm Wednesday through Wednesday call [phone] to speak with a nurse in the cardiology clinic All other times call [phone] and ask to speak to the instrument assembler continuity editor. Return to work: One week Driving: No driving for 48 hours after catheterization. Follow up Appointments: PCP Lovely Vicente MD [phone] to see patient at the end of December for annual check up. Patient to see Dr. Lorenzana at 1120 am at December 19 for a post hospital check up. Assistant Professor Of Archaeology Dr. De Oliveira to see you in [facility]. Left a message for office to set a date and time. Please call [phone] Nobles to see the patient for a same day cath in 2-3 weeks from now. Office to call with a date and time. For questions please call [phone] Home oxygen therapy: N/A Arrangements for VNA/home [...] Progress Note Patient Name: Don Fatima Service: RETAIL ZONE SPECIALIST / PA Responsible Attending: Ifeanyi Truong MD [...] was given Lasix 80mg IV x1 in confectionery laboratory manager. Tolerated procedure well. Home today at 11 [...] TROPONINT 1.13* 0.92* 0.89* Pertinent Radiographic/Diagnostic Results: R/[facility] 12/10/21 Hemodynamics: Right Heart Pressures [...] pulmonary vascular congestion and cardiomegaly. TTE from [facility] 12/08/21 Prior Cardiac Studies: TTE 07/28/2019 [...] with MD Janneth Neville PA 12/12/2021 Pager [phone] Associated attestation - Ifeanyi Truong MD - [...] ratio for each meal) Desirae Jett APRN [facility] Endocrinology Diabetes Management Pager [phone] 20 minutes of this 35 minute visit [...] Progress Note Patient Name: Don Fatima Service: RETAIL ZONE SPECIALIST / PA Responsible Attending: Iker Cueavs MD Reason for continued hospitalization: ?? NSTEMI- s/p R/LHC- PCW 27, occluded SVGs s/p PCI to ostial LCX ?? ADHF and hypoxia- IV diuresis ?? Home likely Wednesday12/12/2021 ?? RCA to be worked on as an out patient ?? Medication titration Active Problems: Active Hospital Problems Diagnosis ??? Admitted with 2 days of sob, hypoxemia, and + trop. Known CAD with hx of [place] and CABG. DM. MARIA VICTORIA.ICM. ??? ASHD [...] was given Lasix 80mg IV x1 in confectionery laboratory manager. Tolerated procedure well. Review of Systems: Review [...] pulmonary vascular congestion and cardiomegaly. TTE from [facility] 12/08/21 Prior Cardiac Studies: TTE 07/28/2019 [...] and answered his questions. Iker Cuevas MD [facility] Total time spent on review of records prior to visit, face to face time with patient during visit, documentation, and coordination of care with other clinicians: 25 minutes. . Iker Cuevas MD - 12/10/2021 12:30 PM EDT Images from the original note were not included. Inpatient Cardiology Progress Note Patient Name: Don Fatima Service: RETAIL ZONE SPECIALIST / PA Responsible Attending: Iker Cuevas MD Reason for continued hospitalization: NSTEMI- s/p R/LHC- PCW 27, occluded SVGs s/p PCI to ostial LCX ADHF and hypoxia- IV diuresis Active Problems: Active Hospital Problems Diagnosis ??? Admitted with 2 days of sob, hypoxemia, and + trop. Known CAD with hx of [place] and CABG. DM. MARIA VICTORIA.ICM. ??? ASHD [...] was given Lasix 80mg IV x1 in confectionery laboratory manager. Tolerated procedure well. Review of Systems: Review [...] pulmonary vascular congestion and cardiomegaly. TTE from [facility] 12/08/21 Prior Cardiac Studies: TTE 07/28/2019 [...] Discussed with MD Migdalia Peter PA-C Pager #[phone] 12/10/2021 Cardiology Attending Note I have seen [...] updated and given pictures. Iker Cuevas MD [facility] Total time spent on review of records prior to visit, face to face time with patient during visit, documentation, and coordination of care with other clinicians: 35 minutes. Iker Cuevas MD - 12/09/2021 7:28 AM EDT Images from the original note were not included. Inpatient Cardiology Progress Note Patient Name: Don Fatima Service: RETAIL ZONE SPECIALIST / PA Responsible Attending: Iker Cuevas MD Reason for continued hospitalization: NSTEMI- awaiting R/LHC ADHF and hypoxia- IV diuresis, R/LHC Active Problems: Active Hospital Problems Diagnosis ??? Admitted with 2 days of sob, hypoxemia, and + trop. Known CAD with hx of W[place] and CABG. DM. MARIA VICTORIA.ICM. ??? ASHD [...] pulmonary vascular congestion and cardiomegaly. TTE from [facility] 12/08/21 Prior Cardiac Studies: TTE 07/28/2019 [...] Discussed with MD Migdalia Peter PA-C Pager #[phone] 12/09/2021 Cardiology Attending Note I have seen and examined the patient. I agree with the findings above. Developed CHF early this am despite getting more iv lasix last evening. Feeling better now. INR > 2. Lungs still wet at base. Echo at [facility] showed EF 35% with mild mod MR slightly lower than last value here. -vit K 2.5 orally to facilitate correction of INR- this will take 12-24 hours to take effect -furosemide 80 mg iv now -postpone right and left heart cath until tomorrow given INR and ADHF -increase statin to achieve LDL < 70 -CPAP tonight Iker Cuevas MD [facility] Total time spent on review of [...] + trop. Known CAD with hx of W[place] and CABG. DM. MARIA VICTORIA.ICM. ??? ASHD [...] prior thyroidectomy in 2012 who presented to [facility] with 1 week progressing breathlessness with [...] visit 03/2021 with Liz Poole PA-C. At [facility], respiratory distress with hypoxia 86% on [...] SETUP performed by Manny Mcknight MD at [facility] MAIN OR ??? PRO AMPUTATION FOOT, TRANSMETATARSAL Right 08/09/2017 AMPUTATION, TRANSMETATARSAL (WRVU 12.71) performed by Yonathan Smith MD at [facility] MAIN OR ??? PRO CABG, ARTERIAL, SINGLE N/A 07/07/2017 @CABG, USING ARTERIAL GRAFT;SINGLE ARTERIAL GRAFT (WRVU 33.75) performed by Yuan Retana MD at [facility] MAIN OR ??? PRO CABG, ARTERY-VEIN, TWO N/A 07/07/2017 @CABG, TWO VENOUS GRAFTS & ARTERIAL GRAFT (WRVU 7.93) performed by Yuan Retana MD at [facility] MAIN OR ??? PRO COLONOSCOPY, REMV LESN, SNARE 01/16/2014 COLONOSCOPY, POLYPECTOMY, REMOVAL LESION BY SNARE performed by Nohemi Jaimes MD at [facility] ENDOSCOPY ??? PRO DRESSING CHANGE UNDER ANESTHESIA Right 08/11/2017 (MSURG) DRESSING CHANGE (FOR OTHER THAN IVAN) UNDER ANES. (WRVU 0.86) performed by Lamar Smith MD at [facility] MAIN OR ??? PRO ENDOSCOPY W/VIDEO-ASST VEIN HARVEST, CABG Right 07/07/2017 ENDOSCOPIC HARVEST VEIN(S) FOR CABG (WRVU 0.31) performed by Yuna Retana MD at [facility] MAIN OR ??? PRO THYROIDECTOMY 03/28/2013 THYROIDECTOMY, TOTAL OR COMPLETE performed by Manny Mcknight MD at [facility] MAIN OR Significant Family History: Family [...] (H) 65 - 199 mg/dL Labs at [facility] 12/08/2021-troponin I 8004 (UN L <60), [...] Monitor for ADRs. Trend troponins. Admission EKG. [facility] 12/09; consented. TTE. Telemetry monitoring, [...] code #Diet-carb control; n.p.o. after midnight for [facility] #DVT prophy- heparin infusion #GI prophy- PPI Discussed with MD Morgan Peter PA-C APP2 pager [phone] 12/08/2021 Cardiology Attending Note I have seen [...] is type 1 due to graft or bois forte coronary stenosis vs acute injury from CHF. 3. PAF: currrently in NSR. Have replaced warfarin with heparin 4. PAD: stable 5. DM: stable 6. CKD: will monitor and minimize contrast. Pt very appreciative of Dr. Yuan Retana's care in 2018. Will let him know patient is here. Iker Cuevas MD [facility] documented in this encounter Miscellaneous Notes Care [...] Type: *No Product type* / Secondary Insurance: [employer] [place] Prescription Coverage: Yes This plan was [...] cath without complications. Migdalia Parker PA-C Pager #[phone] 12/10/2021 Initial Assessments - Nick Georges RN [...] COVID test: Lab Results Component Value Date [id number] Not Detected 12/08/2021 Past medical History: Past [...] spouse would be surrogate decision maker per [place] surrogate decision making law. (Only good for 180 days) Any patient receiving care at [facility] must abide by [place] law. The hierarchy for surrogate decision making [...] (i) The agent with financial power of staff attorney or a conservator appointed in accordance [...] - standard, cane - straight Home Address: [address] [place] [address] [place] [address] Social & Family Supports: All names listed below confirmed with patient as current and correct Extended Emergency Contact Information Primary Emergency Contact: Kisha Fatima Address: [address] [place] [address] [place] [address] [place] Relation: Spouse Secondary Emergency Contact: Elba Swenson Address: [address] [place] Relation: Child Current [...] Type: *No Product type* / Secondary Insurance: [facility] Prescription Coverage: Yes Preferred Pharmacy: [facility] Delivery [facility] [address] [address] - [place], [place] - [address] [place] [id number] [place] Status: Patient is a : unable to assess Primary Care Provider: Lovely Vicente MD [phone] Patient/Caregiver Goals of Treatment: Get out of here Potential Needs for Transition of Care: none Agency Referrals: none patient has used [facility] in the past Transportation: no concerns Transportation Anticipated: family or friend will provide Concerns to be Addressed: patient refuses services, discharge planning Assessment: Patient is admitted to [facility] Service pager [phone] for 76 y.o.??male??with h/o??CAD s/p 3vCABG (THOMPSON-LAD, [...] status on current unit. Nick Georges RN chief enterprise architect, Office of Care Management Pager: [phone] Brief Op Note - Vitaily Nobles MD - 12/10/2021 8:31 AM EDT Images from the original note were not included. [facility] [place] [address] CORONARY ANGIOGRAM AND PERCUTANEOUS CORONARY INTERVENTION REPORT Patient: Don Fatima : 1945 MR number: [id number] Date of Service: 12/10/2021 Service Bar Cashier: Vitaliy Nobles MD Fellow: [place]o [place] MD [...] management and to provide a review of [facility]dc diabetes care. Diabetes History: Don Fatima has had diabetes for 10 years. He has been on insulin for the last several years andis managed by his PCP. Lives in [place], [place] with his . States that he [...] 5 gm carb ratio for each meal) [facility] diabetes care: Medications - Outpatient treatment regimen recommendations pending based on the hospital course. Monitoring - continue BG tid ac & hs Diet - low fat/low carb diet Exercise - weight-bearing exercise 30 min/day, as tolerated Thank you for allowing us to provide care for your patient Desirae Jett APRN Endocrinology Pager [phone] 70 minutes of this 80 minute visit [...] + trop. Known CAD with hx of [place] and CABG. DM. MARIA VICTORIA.ICM. ??? ASHD [...] to remain on Med/Surg floor, please page [phone] for any further questions or concerns. LANDON [...] for further details. STEPHANIE Rebolledo 12/08/2021 Pager [phone] documented in this encounter Plan of Treatment Upcoming Encounters Date Type Specialty Care Team Description 02/19/2022 Laboratory Appointment Lab 02/19/2022 Office Visit Cardiology Liz Poole PA [facility] Cardiology Dept [place], [place] [address] (Wo rk) 03/26/2022 Office Visit Cardiology Vitaliy Nobles MD [facility] CARDIOLOGY [place], [place] [address] (Wo rk) Scheduled Referrals Name [...] POC Glucose 215 (H) 65 - 199 [facility] mg/dL [facility] Comment: Supplemental ranges: <140 mg/dL before meals <180 mg/dL all other times of the day Specimen Anatomical Collection Method Collection Time Receive d Time (Source) Location / / Volume Laterality Blood 12/12/2021 7:42 AM 7:42 EDT AM EDT Ifeanyi Truong MD POINT OF CARE TEST ORDERABLE S Performing Organization Address City/State/[place] [address] (ABNORMAL) Differential, Automated (12/12/2021 4:51 AM EDT) P athologist Signature Neutrophils % 75.4 % [facility] Neutr Abs (ANC) 5.95 1.70 - [facility] 6.10 [facility] x10(3)/[facility] LABORATORY Lymphocytes % 12.2 % [facility] Lymphocytes Abs 1.0 0.9 - 3.2 [facility] x10(3)/[facility] LABORATORY Monocytes % 9.5 % [facility] Monocyte Abs 0.8 0.3 - 0.9 [facility] x10(3)/[facility] LABORATORY Eosinophils % 1.8 % [facility] Eosinophils Abs 0.1 0.0 - 0.4 [facility] x10(3)/[facility] LABORATORY Basophils % 0.5 % [facility] Basophils Abs 0.0 0.0 - 0.1 [facility] x10(3)/[facility] LABORATORY Immature Gran % 0.60 % [facility] Comment: Immature granulocytes(IG's)percentage an d absolute count will include metamyelocytes, myelocytes, and promyelo cytes. Blood smears from CBCs yielding IG's will be scanned manually for concor dance. If this scan disagrees with the automated IG or if promyelocytes are not ed, a manual differential will be performed. Melisa Gran Abs 0.05 (H) 0.00 - 0.04 x10(3)/[facility] LABORATORY Specimen Anatomical Collection Method Collection Time Receive d Time (Source) Location / / Volume Laterality Blood 12/12/2021 4:51 AM 5:06 EDT AM EDT Resulting Agency Comment Spec In Lab Bijan Sun MD HEMATOLOGY ORDERABLES Performing Organization Address City/State/[place] [address] (ABNORMAL) Hemogram (12/12/2021 4:51 AM EDT) Analysis Performed At Patho logist Time Signature WBC 7.9 4.0 - 9.5 [facility] x10(3)/[facility] LABORATORY RBC 4.19 (L) 4.58 - [facility] 5.54 [facility] x10(6)/[facility] LABORATORY Hemoglobin 12.1 (L) 13.7 - [facility] 16.5 g/dL [facility] Hematocrit 36.7 (L) 40.5 - [facility] 48.5 % [facility] MCV 87.6 82.9 - [facility] 93.1 [facility] LABORATORY MCH 28.9 27.5 - [facility] 32.1 pg [facility] MCHC 33.0 32.0 - [facility] 35.7 g/dL [facility] Platelets 231 145 - 357 [facility] x10(3)/[facility] LABORATORY RDWSD 47.2 (H) 36.0 - [facility] R[facility] 45.0 [facility] LABORATORY RDWCV 14.6 (H) 11.4 - [facility] 13.8 % [facility] MPV 9.5 7.6 - 12.9 [facility] LABORATORY nRBC % Auto 0.0 % [facility] nRBC Abs Auto 0.000 0.000 - [facility] 0.000 [facility] x10(3)/[facility] LABORATORY Specimen Anatomical Collection Method Collection Time Receive d Time (Source) Location / / Volume Laterality Blood 12/12/2021 4:51 AM 5:06 EDT AM EDT Resulting Agency Comment Spec In Lab Bijan Sun MD HEMATOLOGY ORDERABLES Performing Organization Address City/State/[place] [address] (ABNORMAL) Prothrombin Time (12/12/2021 4:51 AM EDT) P athologist Signature PT 14.9 (H) 9.4 - 12.5 [facility] sec [facility] INR 1.3 [facility] Comment: An [...] Organization Address City/State/[place] [address] (ABNORMAL) BMP w/fasting Glucose (12/12/2021 4:51 AM EDT) athologist Signature Glucose 152 (H) 65 - 99 [facility] Fasting mg/dL [facility] Comment: ?Fasting* Glucose Interpretive C [...] of Diabetes Mellitus, Position Statement from the [place] [employer]. ??Diabete s Care, Volume 33, Supplement 1, Jul 2009 BUN 52 (H) 10 - 20 mg/dL [facility] Creatinine 1.72 (H) 0.80 - 1.50 mg/dL [facility] Sodium 143 135 - 145 mmol/L [facility] Potassium 3.9 3.5 - 5.0 mmol/L [facility] Comment: Please note: ??Patients with WBC >100,00 0 may have falsely elevated Potassium levels. ??For accurate Potassium quantif ication in these patients send serum separator tube (gold top) for subsequent determinations. ??Contact the Clinical Chemistry Laboratory if there are any qu estions. Chloride 105 98 - 107 mmol/L [facility] CO2 21 (L) 22 - 31 mmol/L [facility] Anion Gap 17 (H) 5 - 15 mmol/L [facility] Calcium 8.9 8.5 - 10.5 mg/dL [facility] Estimated GFR 38 (L) >=60 mL/min/1.73 m?? [facility] Comment: This patient? s [...] Cuevas MD CHEMISTRY ORDERABLES Performing Organization Address City/[facility]/ZIP [place] [address] Magnesium (12/12/2021 4:51 AM EDT) athologist Signature Magnesium 1.02 0.69 - 1.07 [facility]/L [facility] Specimen Anatomical Collection Method Collection Time Receive d Time (Source) Location / / Volume Laterality Blood 12/12/2021 4:51 AM 2 5:06 EDT AM EDT Resulting Agency Comment Spec In Lab Iker Cuevas MD CHEMISTRY ORDERABLES Performing Organization Address City/[facility]/ZIP Code [place] [address] POCT Glucose (12/12/2021 3:43 AM EDT) P athologist Signature POC Glucose 138 65 - 199 [facility] mg/dL [facility] Comment: Supplemental ranges: <140 mg/dL before meals <180 mg/dL all other times of the day Specimen Anatomical Collection Method Collection Time Receive d Time (Source) Location / / Volume Laterality Blood 12/12/2021 3:43 AM 2 3:43 EDT AM EDT Iker Cuevas MD POINT OF CARE TEST ORDERABLE S Performing Organization Address City/State/ZIP [place] [address] POCT Glucose (12/11/2021 11:44 PM EDT) athologist Signature POC Glucose 124 65 - 199 [facility]dL [facility] Comment: Supplemental ranges: <140 mg/dL before meals <180 mg/dL all other times of the day Specimen Anatomical Collection Method Collection Time Receive d Time (Source) Location / / Volume Laterality Blood 12/11/2021 11:44 12/11/2021 PM EDT 11:44 PM EDT Iker Cuevas MD POINT OF CARE TEST ORDERABLE S Performing Organization Address City/State/ZIP [place] [address] (ABNORMAL) POCT Glucose (12/11/2021 8:12 PM EDT) athologist Signature POC Glucose 200 (H) 65 - 199 [facility] mg/dL [facility] Comment: Supplemental ranges: <140 mg/dL before meals <180 mg/dL all other times of the day Specimen Anatomical Collection Method Collection Time Receive d Time (Source) Location / / Volume Laterality Blood 12/11/2021 8:12 PM 2 8:12 EDT PM EDT Iker Cuevas MD POINT OF CARE TEST ORDERABLE S Performing Organization Address City/State/ZIP [place] [address] (ABNORMAL) POCT Glucose (12/11/2021 6:50 PM EDT) athologist Signature POC Glucose 245 (H) 65 - 199 [facility] mg/dL [facility] Comment: Supplemental ranges: <140 mg/dL before meals <180 mg/dL all other times of the day Specimen Anatomical Collection Method Collection Time Receive d Time (Source) Location / / Volume Laterality Blood 12/11/2021 6:50 PM 2 6:50 EDT PM EDT Iker Cuevas MD POINT OF CARE TEST ORDERABLE S Performing Organization Address City/State/ZIP Code [place] [address] (ABNORMAL) POCT Glucose (12/11/2021 4:00 PM EDT) athologist Signature POC Glucose 383 (H) 65 - 199 [facility] Comment: Supplemental ranges: <140 mg/dL before meals <180 mg/dL all other times of the day Specimen Anatomical Collection Method Collection Time Receive d Time (Source) Location / / Volume Laterality Blood 12/11/2021 4:00 PM 2 4:00 EDT PM EDT Iker Cuevas MD POINT OF CARE TEST ORDERABLE S Performing Organization Address City/State/ZIP [place] [address] (ABNORMAL) POCT Glucose (12/11/2021 12:01 PM EDT) athologist Signature POC Glucose 342 (H) 65 - 199 [facility] Comment: Supplemental ranges: <140 mg/dL before meals <180 mg/dL all other times of the day Specimen Anatomical Collection Method Collection Time Receive d Time (Source) Location / / Volume Laterality Blood 12/11/2021 12:01 12/11/2021 PM EDT 12:01 PM EDT Iker Cuevas MD POINT OF CARE TEST ORDERABLE S Performing Organization Address City/State/ZIP [place] [address] COVID-19 PCR (12/11/2021 10:13 AM EDT) [facility] Method Time Signature SARS-CoV-2 Not Detected Not Detected BARBARA RNA [facility] Comment: This result should be [...] diagnosis of COVID-19 is performed using the [employer] S-CoV-2 Assay as authorized by the FDA Emergency Use Authorization (EUA). This EUA assay is intended for In-vitro Diagnostic (IVD) use with respiratory sp ecimens such as nasopharyngeal swabs collected from individuals during the ac terrence phase of infection. This assay is performed based on the instructions for use provided by [employer] and additional guidance provided by CDC and FDA. Testing is performed in the Clinical Genomics and Advanced Technolog y Laboratory within the Department of Pathology and Laboratory Medicine at [facility], certified under the Clinical Laboratory Improvement Amendments [...] fact sheets at the following FDA website: https://www.fda.gov/medical-devices/hmjkuozatxh-yxwwbgw-5011-bstuv-44-zvqpdpfnd- gsf-mdgplvijhgeysm-adewzvd-devices/boorc-guloruwgkld-hhrd SARS-Cov-2 RNA Source [employer]IST Swab [facility] Specimen (Source) Anatomical Collection Method Collection Time Re ceived Time Location / / Volume Laterality Nasopharyngeal Swab 12/11/2021 10:13 0503/2022 AM EDT 11:16 AM EDT Comment: Symptoms->Surveillance Resulting Agency Comment Spec In Lab Iker Cuevas MD MICROBIOLOGY - GENERAL ORDER [place] Performing Organization Address City/State/ZIP Code [place] [address] POCT Glucose (12/11/2021 7:34 AM EDT) athologist Signature POC Glucose 198 65 - 199 [facility] mg/dL [facility] Comment: Supplemental ranges: <140 mg/dL before meals <180 mg/dL all other times of the day Specimen Anatomical Collection Method Collection Time Receive d Time (Source) Location / / Volume Laterality Blood 12/11/2021 7:34 AM 7:34 EDT AM EDT Iker Cuevas MD POINT OF CARE TEST ORDERABLE S Performing Organization Address City/[facility]/ZIP Code [place] [address] (ABNORMAL) POCT Glucose (12/11/2021 5:07 AM EDT) athologist Signature POC Glucose 208 (H) 65 - 199 [facility] mg/dL [facility] Comment: Supplemental ranges: <140 mg/dL before meals <180 mg/dL all other times of the day Specimen Anatomical Collection Method Collection Time Receive d Time (Source) Location / / Volume Laterality Blood 12/11/2021 5:07 AM 5:07 EDT AM EDT Iker Cuevas MD POINT OF CARE TEST ORDERABLE S Performing Organization Address City/State/[place] [address] (ABNORMAL) Differential, Automated (12/11/2021 4:28 AM EDT) [facility] Method Time Signature Neutrophils % 79.6 % [facility] Neutr Abs (ANC) 7.01 (H) 1.70 - [facility] 6.10 [facility] x10(3)/[facility] LABORATORY Lymphocytes % 9.1 % [facility] Lymphocytes Abs 0.8 (L) 0.9 - 3.2 [facility] x10(3)/[facility] LABORATORY Monocytes % 9.2 % [facility] Monocyte Abs 0.8 0.3 - 0.9 [facility] x10(3)/[facility] LABORATORY Eosinophils % 1.3 % [facility] Eosinophils Abs 0.1 0.0 - 0.4 [facility] x10(3)/[facility] LABORATORY Basophils % 0.5 % [facility] Basophils Abs 0.0 0.0 - 0.1 [facility] x10(3)/[facility] LABORATORY Immature Gran % 0.30 % [facility] Comment: Immature granulocytes(IG's)percentage an d absolute count will include metamyelocytes, myelocytes, and promyelo cytes. Blood smears from CBCs yielding IG's will be scanned manually for concor dance. If this scan disagrees with the automated IG or if promyelocytes are not ed, a manual differential will be performed. Melisa Gran Abs 0.03 0.00 - 0.04 x10(3)/[facility] MAR Y [facility] Specimen Anatomical Collection Method Collection Time Receive d Time (Source) Location / / Volume Laterality Blood 12/11/2021 4:28 AM 2 4:37 EDT AM EDT Resulting Agency Comment Spec In Lab Bijan Sun MD HEMATOLOGY ORDERABLES Performing Organization Address City/State/ZIP Code [place] [address] (ABNORMAL) Hemogram (12/11/2021 4:28 AM EDT) Analysis Performed At Patho logist Time Signature WBC 8.8 4.0 - 9.5 [facility] x10(3)/[facility] LABORATORY RBC 4.15 (L) 4.58 - [facility] 5.54 [facility] x10(6)/[facility] LABORATORY Hemoglobin 11.9 (L) 13.7 - [facility] 16.5 g/dL [facility] Hematocrit 36.9 (L) 40.5 - [facility] 48.5 % [facility] MCV 88.9 82.9 - [facility] 93.1 [facility] LABORATORY MCH 28.7 27.5 - [facility] 32.1 pg [facility] MCHC 32.2 32.0 - [facility] 35.7 g/dL [facility] Platelets 211 145 - 357 [facility] x10(3)/[facility] LABORATORY RDWSD 48.3 (H) 36.0 - [facility] 45.0 [facility] LABORATORY RDWCV 14.8 (H) 11.4 - [facility] 13.8 % [facility] MPV 9.6 7.6 - 12.9 [facility] LABORATORY nRBC % Auto 0.0 % [facility] nRBC Abs Auto 0.000 0.000 - [facility] R[facility]AN 0.000 [facility] x10(3)/[facility] LABORATORY Specimen Anatomical Collection Method Collection Time Receive d Time (Source) Location / / Volume Laterality Blood 12/11/2021 4:28 AM 2 4:37 EDT AM EDT Resulting Agency Comment Spec In Lab Bijan Sun MD HEMATOLOGY ORDERABLES Performing Organization Address City/State/[place] [address] (ABNORMAL) Prothrombin Time (12/11/2021 4:28 AM EDT) athologist Signature PT 17.7 (H) 9.4 - 12.5 [facility] LABORATORY INR 1.6 [facility] Comment: An [...] Organization Address City/State/ZIP Code Phon e Number [place] [id number] (ABNORMAL) BMP w/fasting Glucose (12/11/2021 4:28 AM EDT) athologist Signature Glucose 207 (H) 65 - 99 [facility] Fasting mg/dL [facility] Comment: ?Fasting* Glucose Interpretive C [...] of Diabetes Mellitus, Position Statement from the [place] [employer]. ??Diabete s Care, Volume 33, Supplement 1, Jul 2009 BUN 49 (H) 10 - 20 mg/dL [facility] Creatinine 1.43 0.80 - 1.50 mg/dL [facility] Sodium 142 135 - 145 mmol/L [facility] Potassium 4.0 3.5 - 5.0 mmol/L [facility] Comment: Please note: ??Patients with WBC >100,00 0 may have falsely elevated Potassium levels. ??For accurate Potassium quantif ication in these patients send serum separator tube (gold top) for subsequent determinations. ??Contact the Clinical Chemistry Laboratory if there are any qu estions. Chloride 104 98 - 107 mmol/L [facility] CO2 23 22 - 31 mmol/L [facility] Anion Gap 15 5 - 15 mmol/L [facility] Calcium 8.6 8.5 - 10.5 mg/dL [facility] Estimated GFR 48 (L) >=60 mL/min/1.73 m?? [facility] Comment: This patient? s [...] Organization Address City/State/[place] [address] Magnesium (12/11/2021 4:28 AM EDT) athologist Signature Magnesium 1.04 0.69 - 1.07 [facility]/L [facility] Specimen Anatomical Collection Method Collection Time Receive d Time (Source) Location / / Volume Laterality Blood 12/11/2021 4:28 AM 2 4:37 EDT AM EDT Resulting Agency Comment Spec In Lab Iker Cuevas MD CHEMISTRY ORDERABLES Performing Organization Address City/State/ZIP Code Phon e Number [address] POCT Glucose (12/11/2021 3:58 AM EDT) athologist Signature POC Glucose 189 65 - 199 [facility]dL [facility] Comment: Supplemental ranges: <140 mg/dL before meals <180 mg/dL all other times of the day Specimen Anatomical Collection Method Collection Time Receive d Time (Source) Location / / Volume Laterality Blood 12/11/2021 3:58 AM 2 3:58 EDT AM EDT Iker Cuevas MD POINT OF CARE TEST ORDERABLE S Performing Organization Address City/State/ZIP Code [place] [address] (ABNORMAL) POCT Glucose (12/10/2021 11:45 PM EDT) athologist Signature POC Glucose 205 (H) 65 - 199 [facility]/dL [facility] Comment: Supplemental ranges: <140 mg/dL before meals <180 mg/dL all other times of the day Specimen Anatomical Collection Method Collection Time Receive d Time (Source) Location / / Volume Laterality Blood 12/10/2021 11:45 12/10/2021 PM EDT 11:45 PM EDT Iker Cuevas MD POINT OF CARE TEST ORDERABLE S Performing Organization Address City/State/ZIP Code Phon e Number [address] (ABNORMAL) POCT Glucose (12/10/2021 7:54 PM EDT) athologist Signature POC Glucose 225 (H) 65 - 199 [facility]/dL [facility] Comment: Supplemental ranges: <140 mg/dL before meals <180 mg/dL all other times of the day Specimen Anatomical Collection Method Collection Time Receive d Time (Source) Location / / Volume Laterality Blood 12/10/2021 7:54 PM 2 7:54 EDT PM EDT Iker Cuevas MD POINT OF CARE TEST ORDERABLE S Performing Organization Address City/[facility]/ZIP Code [place] [address] Potassium (12/10/2021 7:46 PM EDT) athologist Signature Potassium 4.2 3.5 - 5.0 [facility] mmol/L [facility] Comment: Please note: ??Patients with [...] Cuevas MD CHEMISTRY ORDERABLES Performing Organization Address City/[facility]/ZIP Code [place] [address] (ABNORMAL) Basic Metabolic Panel (non-fasting) (12/10/2021 6:12 PM EDT) athologist Signature Glucose Lvl 246 (H) 65 - 199 [facility] mg/dL [facility] Comment: Diabetes: >=200 mg/dL plus symp toms BUN 50 (H) 10 - 20 mg/dL [facility] Creatinine 1.39 0.80 - 1.50 mg/dL [facility] Sodium 138 135 - 145 mmol/L [facility] Potassium Not Perf 3.5 [...] mmol/L [facility] CO2 22 22 - 31 mmol/L [facility] Anion Gap 16 (H) 5 - 15 mmol/L [facility] Calcium 8.3 (L) 8.5 - 10.5 mg/dL [facility] Estimated GFR 49 (L) >=60 mL/min/1.73 m?? [facility] Comment: This patient? s [...] Organization Address City/State/[place] [address] POCT Glucose (12/10/2021 4:59 PM EDT) athologist Signature POC Glucose 158 65 - 199 [facility] mg/dL [facility] Comment: Supplemental ranges: <140 mg/dL before meals <180 mg/dL all other times of the day Specimen Anatomical Collection Method Collection Time Receive d Time (Source) Location / / Volume Laterality Blood 12/10/2021 4:59 PM 4:59 EDT PM EDT Iker Cuevas MD POINT OF CARE TEST ORDERABLE S Performing Organization Address City/State/ZIP Code [place] [address] (ABNORMAL) POCT Glucose (12/10/2021 12:43 PM EDT) P athologist Signature POC Glucose 241 (H) 65 - 199 [facility] mg/dL [facility] Comment: Supplemental ranges: <140 mg/dL before meals <180 mg/dL all other times of the day Specimen Anatomical Collection Method Collection Time Receive d Time (Source) Location / / Volume Laterality Blood 12/10/2021 12:43 12/10/2021 PM EDT 12:43 PM EDT Iker Cuevas MD POINT OF CARE TEST ORDERABLE S Performing Organization Address City/[facility]/ZIP Code [place] [address] EKG 12 Lead (12/10/2021 11:17 AM EDT) Component Value Ref Range Test Analysis Performed Pathologis t Method Time At Signature Ventricular rate 62 BPM MUSE SYSTEM Atrial Rate 62 BPM MUSE SYSTEM P-R Interval 142 ms MUSE SYSTEM QRS Duration 100 ms MUSE SYSTEM Q-T Interval 434 ms MUSE SYSTEM QTC Calculated 440 ms MUSE SYSTEM (Bezet) Calculated P [place]ard 34 degrees MUSE SYSTEM Calculated R [place] -39 degrees MUSE SYSTEM Calculated T [place] 92 degrees MUSE SYSTEM INTERPRETATION Normal sinus rhythm MUSE SYSTEM Left axis deviation Minimal voltage criteria for LVH, may be normal variant ( Fritch product ) Cannot rule out Inferior infarct [...] SYSTEM - 12/10/2021 12:04 PM E DT ?[facility] ? Cardiac Cathete rization/Intervention Report ? Patient Name: Don Fatima. ? Procedure Date: 12/10/2021 ? A #: [id number] ? Primary Physician: Vitaliy Nobles ? Case #: [id number] ? File Name: [id number] ? Catheterization Order Number: [id number] ? [facility] ? Final Report [place], [place] ? Patient Name: ? Don E. Stewa rt ? ID#: ?[id number] ? : ?1945 ? Procedure Date: ? December 10, 2021 ? Case #: ? [id number] ? Room: ? 1 ? Case Physician: [...] was ?designated as ASA Class III. e [facility] clinical frailty scale is 5: Mildly [...] procedure was Urgent. The indication for ?the confectionery laboratory manager visit is ACS great er than 24 [...] ?3.75 guiding catheter and a 3.5 Fr [place] 20 Mhz using Manual ?pullback. ??Imaging was [...] ?3.75 guiding catheter and a 3.5 Fr [place] [facility] [place] 20 Mhz using Manual ?pullback. ??Imaging was [...] lar ge 4.0 x 24 mm Synergy TCUKER stent in the ? proximal LCX le [...] may require ?modification of this regimen. C [facility] Interventional Cardiology for ?questions. ?The 1 year bleeding risk as nusrat culated by the PRECISE DAPT score is High ?risk. ?High Bleeding Risk - Anticoagul ation and DAPT: ?- ??Assess ischemic and bleedin g risks using validated risk predictors ?(e.g. CHADS2-VASC, HAS-BLED, MD ECISE DAPT, DAPT Score) ?- ??Keep anticoagulant [...] Procedure Note Vitaliy Nobles MD - 01/14/2022 [facility] Cardiac Catheterization/Intervention Re port Patient Name: Don Fatima Procedure Date: 12/10/2021 A #: [id number] Primary Physician: Vitaliy Nobles Case #: [id number] File Name: [id number] Catheterization Order Number: [id number] [facility] Final Report [place], [place] Patient Name: Don Fatima ID#: [...] e was Urgent. The indication for the confectionery laboratory manager visit is ACS greater than 24 hrs [...] and a 3.5 Fr [place] 20 Mhz using Manual pullback. Imaging was [...] and a 3.5 Fr [place] 20 Mhz using Manual pullback. Imaging was successful. Image quality was good. The distal LM showed moderate diffuse atherosclero tic plaque. Post Intervention: The stent was well e xpanded and apposed. Indication for Intervention: Coronary intervention was indicated for primary therapy for an acute myocardial infarction. The priority for the procedure was Urgent. [facility] N MARKIE-ACS. [...] require modification of this regimen. Consult [facility] Interventional Cardiology for questions. The 1 year [...] POC Glucose 262 (H) 65 - 199 [facility] mg/dL [facility] Comment: Supplemental ranges: <140 mg/dL before meals <180 mg/dL all other times of the day Specimen Anatomical Collection Method Collection Time Receive d Time (Source) Location / / Volume Laterality Blood 12/10/2021 10:30 12/10/2021 AM EDT 10:30 AM EDT Iker Cuevas MD POINT OF CARE TEST ORDERABLE S Performing Organization Address City/State/[place] [address] (ABNORMAL) POCT Glucose (12/10/2021 9:48 AM EDT) athologist Signature POC Glucose 279 (H) 65 - 199 [facility] mg/dL [facility] Comment: Supplemental ranges: <140 mg/dL before meals <180 mg/dL all other times of the day Specimen Anatomical Collection Method Collection Time Receive d Time (Source) Location / / Volume Laterality Blood 12/10/2021 9:48 AM 2 9:48 EDT AM EDT Iker Cuevas MD POINT OF CARE TEST ORDERABLE S Performing Organization Address City/State/ZIP Code [place] [address] (ABNORMAL) POCT Glucose (12/10/2021 9:07 AM EDT) athologist Signature POC Glucose 268 (H) 65 - 199 [facility] mg/dL [facility] Comment: Supplemental ranges: <140 mg/dL before meals <180 mg/dL all other times of the day Specimen Anatomical Collection Method Collection Time Receive d Time (Source) Location / / Volume Laterality Blood 12/10/2021 9:07 AM 2 9:07 EDT AM EDT Iker Cuevas MD POINT OF CARE TEST ORDERABLE S Performing Organization Address City/State/ZIP Code [place] [address] (ABNORMAL) Point of Care Blood Gas Historical (12/10/2021 9:04 AM EDT) [facility] Method Time Signature POC pH 7.40 7.35 - [facility] 7.45 [facility] POC PCO2 40 35 - 45 [facility] mmHg [facility] POC PO2 63 (L) 85 - 104 [facility] mmHg [facility] POC Base Excess 0.0 -3.0 - 3.0 [facility] K mmol/L [facility] POC HCO3 24.8 20.0 - [facility] 26.0 [facility] mmol/[facility] LABORATORY POC Sodium 143 135 - 145 [facility] mmol/L [facility] POC Potassium 3.7 3.5 - 5.0 [facility] mmol/L [facility] POC Ionized Ca 1.07 (L) 1.15 - [facility] 1.33 [facility] mmol/L [facility] LABORATORY POC Hematocrit 30.0 (L) 40.0 - [facility] 51.0 % [facility] POC Calc Hgb 10.2 (L) 13.7 - [facility] 17.5 g/dL [facility] Comment: The calculation of hemoglobin f rom hematocrit assumes a normal MCHC. POC Bgas Loc CC LAB [facility] LABORATORY Specimen Anatomical Collection Method Collection Time Receive d Time (Source) Location / / Volume Laterality Blood 12/10/2021 9:04 AM 2 EDT 12:00 PM EDT Ifeanyi Truong MD CHEMISTRY ORDERABLES Performing Organization Address City/[facility]/ZIP Code [place] [address] (ABNORMAL) POCT Glucose (12/10/2021 7:19 AM EDT) athologist Signature POC Glucose 274 (H) 65 - 199 [facility] mg/dL [facility] Comment: Supplemental ranges: <140 mg/dL before meals <180 mg/dL all other times of the day Specimen Anatomical Collection Method Collection Time Receive d Time (Source) Location / / Volume Laterality Blood 12/10/2021 7:19 AM 2 7:19 EDT AM EDT Iker Cuevas MD POINT OF CARE TEST ORDERABLE S Performing Organization Address City/[facility]/ZIP [place] [address] Heparin (unfractionated) Level (12/10/2021 4:25 AM EDT) athologist Signature Heparin UFH 0.69 IU/mL [facility] LABORATORY Comment: Heparin (anti-Xa) levels should be [...] Organization Address City/State/[place] [address] (ABNORMAL) Differential, Automated (12/10/2021 4:25 AM EDT) [facility] Method Time Signature Neutrophils % 79.8 % [facility] Neutr Abs (ANC) 7.47 (H) 1.70 - [facility] 6.10 [facility] x10(3)/[facility] LABORATORY Lymphocytes % 10.6 % [facility] Lymphocytes Abs 1.0 0.9 - 3.2 [facility] x10(3)/[facility] LABORATORY Monocytes % 8.4 % [facility] Monocyte Abs 0.8 0.3 - 0.9 [facility] x10(3)/[facility] LABORATORY Eosinophils % 0.6 % [facility] Eosinophils Abs 0.1 0.0 - 0.4 [facility] x10(3)/[facility] LABORATORY Basophils % 0.2 % [facility] Basophils Abs 0.0 0.0 - 0.1 [facility] x10(3)/[facility] LABORATORY Immature Gran % 0.40 % [facility] Comment: Immature granulocytes(IG's)percentage an d absolute count will include metamyelocytes, myelocytes, and promyelo cytes. Blood smears from CBCs yielding IG's will be scanned manually for concor dance. If this scan disagrees with the automated IG or if promyelocytes are not ed, a manual differential will be performed. Melisa Gran Abs 0.04 0.00 - 0.04 x10(3)/[facility] MAR Y [facility] LABORATORY Specimen Anatomical Collection Method Collection Time Receive d Time (Source) Location / / Volume Laterality Blood 12/10/2021 4:25 AM 2 4:34 EDT AM EDT Resulting Agency Comment Spec In Lab Morgan BROWN HEMATOLOGY ORDERABLES Performing Organization Address City/State/[place] [address] (ABNORMAL) Hemogram (12/10/2021 4:25 AM EDT) Analysis Performed At Patho logist Time Signature WBC 9.4 4.0 - 9.5 [facility] x10(3)/[facility] LABORATORY RBC 3.81 (L) 4.58 - [facility] 5.54 [facility] x10(6)/[facility] LABORATORY Hemoglobin 11.1 (L) 13.7 - [facility] 16.5 g/dL [facility] Hematocrit 34.0 (L) 40.5 - [facility] 48.5 % [facility] MCV 89.2 82.9 - [facility] 93.1 [facility] LABORATORY MCH 29.1 27.5 - [facility] 32.1 pg [facility] MCHC 32.6 32.0 - [facility] 35.7 g/dL [facility] Platelets 183 145 - 357 [facility] x10(3)/[facility] LABORATORY RDWSD 49.9 (H) 36.0 - [facility] 45.0 [facility] LABORATORY RDWCV 15.2 (H) 11.4 - [facility] 13.8 % [facility] MPV 9.8 7.6 - 12.9 [facility] LABORATORY nRBC % Auto 0.0 % [facility] LABORATORY nRBC Abs Auto 0.000 0.000 - [facility] 0.000 [facility] x10(3)/[facility] LABORATORY Specimen Anatomical Collection Method Collection Time Receive d Time (Source) Location / / Volume Laterality Blood 12/10/2021 4:25 AM 2 4:34 EDT AM EDT Resulting Agency Comment Spec In Lab Morgan BROWN HEMATOLOGY ORDERABLES Performing Organization Address City/State/ZIP [place] [address] (ABNORMAL) Prothrombin Time (12/10/2021 4:25 AM EDT) P athologist Signature PT 20.0 (H) 9.4 - 12.5 [facility] LABORATORY INR 1.7 [facility] LABORATORY Comment: An [...] Organization Address City/State/ZIP [place] [address] (ABNORMAL) BMP w/fasting Glucose (12/10/2021 4:25 AM EDT) P athologist Signature Glucose 210 (H) 65 - 99 [facility] Fasting mg/dL [facility] LABORATORY Comment: ?Fasting* Glucose Interpretive C [...] of Diabetes Mellitus, Position Statement from the [place] [employer]. ??Diabete s Care, Volume 33, Supplement 1, Jul 2009 BUN 54 (H) 10 - 20 mg/dL [facility] LABORATORY Creatinine 1.52 (H) 0.80 - 1.50 mg/dL [facility] LABORATORY Sodium 140 135 - 145 mmol/L [facility] LABORATORY Potassium 3.9 3.5 - 5.0 mmol/L [facility] LABORATORY Comment: Please note: ??Patients with WBC >100,00 0 may have falsely elevated Potassium levels. ??For accurate Potassium quantif ication in these patients send serum separator tube (gold top) for subsequent determinations. ??Contact the Clinical Chemistry Laboratory if there are any qu estions. Chloride 104 98 - 107 mmol/L [facility] LABORATORY CO2 23 22 - 31 mmol/L [facility] LABORATORY Anion Gap 13 5 - 15 mmol/L [facility] LABORATORY Calcium 8.0 (L) 8.5 - 10.5 mg/dL [facility] LABORATORY Estimated GFR 44 (L) >=60 mL/min/1.73 m?? [facility] LABORATORY Comment: This patient? s [...] Organization Address City/State/ZIP [place] [address] Magnesium (12/10/2021 4:25 AM EDT) athologist Signature Magnesium 0.95 0.69 - 1.07 [facility] mmol/L [facility] LABORATORY Specimen Anatomical Collection Method Collection Time Receive d Time (Source) Location / / Volume Laterality Blood 12/10/2021 4:25 AM 2 4:34 EDT AM EDT Resulting Agency Comment Spec In Lab Iker Cuevas MD CHEMISTRY ORDERABLES Performing Organization Address City/State/ZIP Code Phon e Number [address] POCT Glucose (12/10/2021 1:58 AM EDT) athologist Signature POC Glucose 164 65 - 199 [facility] mg/dL [facility] LABORATORY Comment: Supplemental ranges: <140 mg/dL before meals <180 mg/dL all other times of the day Specimen Anatomical Collection Method Collection Time Receive d Time (Source) Location / / Volume Laterality Blood 12/10/2021 1:58 AM 2 1:58 EDT AM EDT Iker Cuevas MD POINT OF CARE TEST ORDERABLE S Performing Organization Address City/[facility]/ZIP Code Phon e Number [address] (ABNORMAL) POCT Glucose (12/09/2021 9:02 PM EDT) athologist Signature POC Glucose 313 (H) 65 - 199 [facility] mg/dL [facility] LABORATORY Comment: Supplemental ranges: <140 mg/dL before meals <180 mg/dL all other times of the day Specimen Anatomical Collection Method Collection Time Receive d Time (Source) Location / / Volume Laterality Blood 12/09/2021 9:02 PM 2 9:02 EDT PM EDT Iker Cuevas MD POINT OF CARE TEST ORDERABLE S Performing Organization Address City/State/ZIP Code [place] [address] Heparin (unfractionated) Level (12/09/2021 7:30 PM EDT) athologist Signature Heparin UFH 0.48 IU/mL [facility] LABORATORY Comment: Heparin (anti-Xa) levels should be [...] Organization Address City/State/[place] [address] (ABNORMAL) Basic Metabolic Panel (non-fasting) (12/09/2021 7:30 PM EDT) athologist Signature Glucose Lvl 372 (H) 65 - 199 [facility] mg/dL [facility] LABORATORY Comment: Diabetes: >=200 mg/dL plus symp toms BUN 56 (H) 10 - 20 mg/dL [facility] LABORATORY Creatinine 1.75 (H) 0.80 - 1.50 mg/dL [facility] LABORATORY Sodium 138 135 - 145 mmol/L [facility] LABORATORY Potassium 4.2 3.5 - 5.0 mmol/L [facility] LABORATORY Comment: Please note: ??Patients with WBC >100,00 0 may have falsely elevated Potassium levels. ??For accurate Potassium quantif ication in these patients send serum separator tube (gold top) for subsequent determinations. ??Contact the Clinical Chemistry Laboratory if there are any qu estions. Chloride 102 98 - 107 mmol/L [facility] LABORATORY CO2 22 22 - 31 mmol/L [facility] LABORATORY Anion Gap 14 5 - 15 mmol/L [facility] LABORATORY Calcium 8.1 (L) 8.5 - 10.5 mg/dL [facility] LABORATORY Estimated GFR 37 (L) >=60 mL/min/1.73 m?? [facility] LABORATORY Comment: This patient? s [...] Organization Address City/State/[place] [address] (ABNORMAL) POCT Glucose (12/09/2021 6:34 PM EDT) P athologist Signature POC Glucose 408 (H) 65 - 199 [facility] mg/dL [facility] LABORATORY Comment: Supplemental ranges: <140 mg/dL before meals <180 mg/dL all other times of the day Specimen Anatomical Collection Method Collection Time Receive d Time (Source) Location / / Volume Laterality Blood 12/09/2021 6:34 PM 2 6:34 EDT PM EDT Iker Cuevas MD POINT OF CARE TEST ORDERABLE S Performing Organization Address City/State/ZIP Code [place] [address] (ABNORMAL) POCT Glucose (12/09/2021 6:32 PM EDT) athologist Signature POC Glucose 356 (H) 65 - 199 [facility] Comment: Supplemental ranges: <140 mg/dL before meals <180 mg/dL all other times of the day Specimen Anatomical Collection Method Collection Time Receive d Time (Source) Location / / Volume Laterality Blood 12/09/2021 6:32 PM 2 6:32 EDT PM EDT Iker Cuevas MD POINT OF CARE TEST ORDERABLE S Performing Organization Address City/[facility]/ZIP Code [place] [address] (ABNORMAL) POCT Glucose (12/09/2021 4:19 PM EDT) athologist Signature POC Glucose 347 (H) 65 - 199 [facility] mg/dL [facility] LAB[facility] Comment: Supplemental ranges: <140 mg/dL before meals <180 mg/dL all other times of the day Specimen Anatomical Collection Method Collection Time Receive d Time (Source) Location / / Volume Laterality Blood 12/09/2021 4:19 PM 2 4:19 EDT PM EDT Iker Cuevas MD POINT OF CARE TEST ORDERABLE S Performing Organization Address City/[facility]/ZIP Code [place] [address] Heparin (unfractionated) Level (12/09/2021 1:29 PM EDT) athologist Signature Heparin UFH 0.42 IU/mL [facility] LABORATORY Comment: Heparin (anti-Xa) levels should be [...] Organization Address City/State/ZIP Code [place] [address] (ABNORMAL) POCT Glucose (12/09/2021 12:02 PM EDT) athologist Signature POC Glucose 235 (H) 65 - 199 [facility] mg/dL [facility] Comment: Supplemental ranges: <140 mg/dL before meals <180 mg/dL all other times of the day Specimen Anatomical Collection Method Collection Time Receive d Time (Source) Location / / Volume Laterality Blood 12/09/2021 12:02 12/09/2021 PM EDT 12:02 PM EDT Iker Cuevas MD POINT OF CARE TEST ORDERABLE S Performing Organization Address City/[facility]/ZIP Code [place] [address] (ABNORMAL) POCT Glucose (12/09/2021 9:44 AM EDT) P athologist Signature POC Glucose 214 (H) 65 - 199 [facility] mg/dL [facility] LABORATORY Comment: Supplemental ranges: <140 mg/dL before meals <180 mg/dL all other times of the day Specimen Anatomical Collection Method Collection Time Receive d Time (Source) Location / / Volume Laterality Blood 12/09/2021 9:44 AM 2 9:44 EDT AM EDT Iker Cuevas MD POINT OF CARE TEST ORDERABLE S Performing Organization Address City/State/ZIP Code [place] [address] EKG 12 Lead (12/09/2021 7:57 AM EDT) Component Value Ref Range Test Analysis Performed Pathologis t Method Time At Signature Ventricular rate 101 BPM MUSE SYSTEM Atrial Rate 101 BPM MUSE SYSTEM P-R Interval 150 ms MUSE SYSTEM QRS Duration 112 ms MUSE SYSTEM Q-T Interval 364 ms MUSE SYSTEM QTC Calculated 471 ms MUSE SYSTEM (Bezet) Calculated P Seward 59 degrees MUSE SYSTEM Calculated R Seward -42 degrees MUSE SYSTEM Calculated T Seward 102 degrees MUSE SYSTEM INTERPRETATION Sinus tachycardia Occasional Premature ventricular com plexes MUSE SYSTEM Left axis deviation 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) Abnormal ECG When compared with ECG of 08-DEC-2021 16:40, Premature ventricular complexes are now Present Confirmed by MD Jim, Yoon ([id number]) on 12/10/2021 4:55:06 PM Specimen Anatomical Collection Method Collection Time Receive d Time (Source) Location / / Volume Laterality 12/09/2021 7:57 AM 2 4:55 EDT PM EDT Iker Cuevas MD ECG ORDERABLES Performing Organization Address City/State/ZIP Code Phon e Number MUSE SYSTEM (ABNORMAL) POCT Glucose (12/09/2021 7:28 AM EDT) P athologist Signature POC Glucose 263 (H) 65 - 199 [facility] mg/dL [facility] LABORATORY Comment: Supplemental ranges: <140 mg/dL before meals <180 mg/dL all other times of the day Specimen Anatomical Collection Method Collection Time Receive d Time (Source) Location / / Volume Laterality Blood 12/09/2021 7:28 AM 2 7:28 EDT AM EDT Iker Cuevas MD POINT OF CARE TEST ORDERABLE S Performing Organization Address City/State/[place] [address] (ABNORMAL) Hemoglobin A1c (12/09/2021 6:18 AM EDT) Analysis Performed At Patho logist Time Signature Hemoglobin A1C 7.4 (H) 4.3 - 5.6 [facility] Mellitus, Diabetes Care 2013; 36: Suppl. 1, S67-63 Est Avg Gluc See note mg/dL [facility] Comment: Estimated Average Glucose not [...] with hemoglobinopathies. Additional resources are available on city hospital ADA website. Macario HAMMOND, Ruthann J, Deysi R, et al. ??Tr anslating the A1C assay into estimated average glucose values. ??Diabetes Care 2008:31(8):9389-0857. Specimen Anatomical Collection Method Collection Time Receive d Time (Source) Location / / Volume Laterality Blood Venous Draw / 12/09/2021 6:18 AM 12/10/19 22 Unknown EDT 12:24 PM EDT Resulting Agency Comment Spec In Lab Migdalia BROWN CHEMISTRY ORDERABLES Performing Organization Address City/State/[place] [address] (ABNORMAL) Prothrombin Time (12/09/2021 6:18 AM EDT) athologist Signature PT 26.6 (H) 9.4 - 12.5 [facility] LABORATORY INR 2.3 [facility] LABORATORY Comment: An [...] Organization Address City/State/[place] [address] Heparin (unfractionated) Level (12/09/2021 6:18 AM EDT) athologist Signature Heparin UFH 0.24 IU/mL [facility] LABORATORY Comment: Heparin (anti-Xa) levels should be [...] Organization Address City/State/[place] [address] (ABNORMAL) Differential, Automated (12/09/2021 6:18 AM EDT) [facility] Method Time Signature Neutrophils % 91.5 % [facility] LABORATORY Neutr Abs (ANC) 15.78 (H) 1.70 - [facility] 6.10 [facility] x10(3)/[facility] L LABORATORY Lymphocytes % 2.9 % [facility] LABORATORY Lymphocytes Abs 0.5 (L) 0.9 - 3.2 [facility] x10(3)/[facility] LABORATORY Monocytes % 4.9 % [facility] LABORATORY Monocyte Abs 0.8 0.3 - 0.9 [facility] x10(3)/[facility] LABORATORY Eosinophils % 0.0 % [facility] LABORATORY Eosinophils Abs 0.0 0.0 - 0.4 [facility] x10(3)/[facility] LABORATORY Basophils % 0.2 % [facility] LABORATORY Basophils Abs 0.0 0.0 - 0.1 [facility] x10(3)/[facility] LABORATORY Immature Gran % 0.50 % [facility] LABORATORY Comment: Immature granulocytes(IG's)percentage an d absolute count will include metamyelocytes, myelocytes, and promyelo cytes. Blood smears from CBCs yielding IG's will be scanned manually for concor dance. If this scan disagrees with the automated IG or if promyelocytes are not ed, a manual differential will be performed. Melisa Gran Abs 0.09 (H) 0.00 - 0.04 x10(3)/[facility] LABORATORY Specimen Anatomical Collection Method Collection Time Receive d Time (Source) Location / / Volume Laterality Blood 12/09/2021 6:18 AM 2 6:33 EDT AM EDT Resulting Agency Comment Spec In Lab Morgan BROWN HEMATOLOGY ORDERABLES Performing Organization Address City/State/[place] [address] (ABNORMAL) Hemogram (12/09/2021 6:18 AM EDT) Analysis Performed At Patho logist Time Signature WBC 17.2 (H) 4.0 - 9.5 [facility] LABORATORY RBC 4.32 (L) 4.58 - [facility] 5.54 [facility] x10(6)/[facility] LABORATORY Hemoglobin 12.6 (L) 13.7 - [facility] 16.5 g/dL [facility] LABORATORY Hematocrit 38.9 (L) 40.5 - [facility] 48.5 % [facility] LABORATORY MCV 90.0 82.9 - [facility] 93.1 [facility] LABORATORY MCH 29.2 27.5 - [facility] 32.1 pg [facility] LABORATORY MCHC 32.4 32.0 - [facility] 35.7 g/dL [facility] LABORATORY Platelets 193 145 - 357 [facility] x10(3)/[facility] LABORATORY RDWSD 50.4 (H) 36.0 - [facility] 45.0 [facility] LABORATORY RDWCV 15.2 (H) 11.4 - [facility] 13.8 % [facility] LABORATORY MPV 9.5 7.6 - 12.9 [facility] LABORATORY nRBC % Auto 0.0 % [facility] LABORATORY nRBC Abs Auto 0.000 0.000 - [facility] 0.000 [facility] x10(3)/[facility] LABORATORY Specimen Anatomical Collection Method Collection Time Receive d Time (Source) Location / / Volume Laterality Blood 12/09/2021 6:18 AM 2 6:33 EDT AM EDT Resulting Agency Comment Spec In Lab Morgan BROWN HEMATOLOGY ORDERABLES Performing Organization Address City/State/[place] [address] Lipid Panel (Reflex Direct LDL) (12/09/2021 6:18 AM EDT) P athologist Signature Chol, Total 105 mg/dL [facility] LABORATORY Comment: Lower Risk: <200 mg/dL Average Risk: 200-239 mg/dL Higher Risk: >ko=240 mg/dL Triglycerides 133 mg/dL [facility] LABORATORY Comment: Average Risk/Lower Risk: <150 mg/dL Borderline High Risk: 150-199 mg/dL High Risk: 200-499 mg/dL Very High Risk: >gz=464 mg/dL HDL 42 mg/dL [facility] LABORATORY Comment: Males: ?? Higher Risk: <40 mg/dL Females: ?? Higher Risk: <50 mg/dL LDL Cholesterol 36 mg/dL [facility] LABORATORY Comment: Lowest Risk: <100 mg/dL Lower Risk: 100-129 mg/dL Borderline High Risk: 130-159 mg/dL High Risk: 160-189 mg/dL Very High Risk: >ab=236 mg/dL Chol/HDL Ratio 2.5 ratio [facility] LABORATORY Lipid Interpretation See Note [facility] LABORATORY Comment: Lipid management should be guided by a p atient? s ASCVD risk, goals and preferences. ACC/AHA Guidelines recommend high intens ity statin if clinical ASCVD or LDL greater than or equal to 190 mg/dL. http://[employer]/WVX-MPM-Pavtekmyq Adults aged 40-75 with LDL 70-189 mg/dL should have their 10 year ASCVD risk estimated with the ACC/AHA ASCVD risk es timator http://tools.acc.org/DTWXI-Toxh-Twlbwqtr r/ Statin should be discussed if risk [...] Cuevas MD CHEMISTRY ORDERABLES Performing Organization Address City/[facility]/ZIP Code Phon e Number [address] TSH (12/09/2021 6:18 AM EDT) P athologist Signature TSH 1.60 0.27 - 4.20 [facility] mcIU/mL [facility] LABORATORY Comment: Reference Interval (mcIU/mL): Females: ??First Trimester: 0.23-3.88 ??Second Trimester: 0.22-3.90 ??Third Trimester: 0.44-4.66 Specimen Anatomical Collection Method Collection Time Receive d Time (Source) Location / / Volume Laterality Blood 12/09/2021 6:18 AM 2 6:33 EDT AM EDT Resulting Agency Comment Spec In Lab Iker Cuevas MD CHEMISTRY ORDERABLES Performing Organization Address [facility] [place] [address] Hepatic Function Panel (12/09/2021 6:18 AM EDT) P athologist Signature Total Protein 7.3 6.1 - 8.0 [facility] g/dL [facility] LABORATORY Albumin 4.2 3.2 - 5.2 [facility] g/dL [facility] LABORATORY AST 25 0 - 39 [facility] unit/L [facility] LABORATORY ALT 15 0 - 55 [facility] unit/L [facility] LABORATORY Alk Phos 75 40 - 130 [facility] unit/L [facility] LABORATORY Total 1.1 0.2 - 1.3 [facility] Bilirubin mg/dL [facility] LABORATORY Bili, Direct 0.2 0.0 - 0.3 [facility] mg/dL [facility] LABORATORY Specimen Anatomical Collection Method Collection Time Receive d Time (Source) Location / / Volume Laterality Blood 12/09/2021 6:18 AM 2 6:33 EDT AM EDT Resulting Agency Comment Spec In Lab Iker Cuevas MD CHEMISTRY ORDERABLES Performing Organization Address City/[facility]/[place] [address] (ABNORMAL) BMP w/fasting Glucose (12/09/2021 6:18 AM EDT) athologist Signature Glucose 235 (H) 65 - 99 [facility] Fasting mg/dL [facility] LABORATORY Comment: ?Fasting* Glucose Interpretive C [...] of Diabetes Mellitus, Position Statement from the [place] [employer]. ??Diabete s Care, Volume 33, Supplement 1, Jul 2009 BUN 49 (H) 10 - 20 mg/dL [facility] LABORATORY Creatinine 1.33 0.80 - 1.50 mg/dL [facility] LABORATORY Sodium 139 135 - 145 mmol/L [facility] LABORATORY Potassium 4.2 3.5 - 5.0 mmol/L [facility] LABORATORY Comment: Please note: ??Patients with WBC >100,00 0 may have falsely elevated Potassium levels. ??For accurate Potassium quantif ication in these patients send serum separator tube (gold top) for subsequent determinations. ??Contact the Clinical Chemistry Laboratory if there are any qu estions. Chloride 101 98 - 107 mmol/L [facility] LABORATORY CO2 21 (L) 22 - 31 mmol/L [facility] LABORATORY Anion Gap 17 (H) 5 - 15 mmol/L [facility] LABORATORY Calcium 8.8 8.5 - 10.5 mg/dL [facility] LABORATORY Estimated GFR 52 (L) >=60 mL/min/1.73 m?? [facility] LABORATORY Comment: This patient? s [...] Cuevas MD CHEMISTRY ORDERABLES Performing Organization Address City/[facility]/ZIP Code [place] [address] Magnesium (12/09/2021 6:18 AM EDT) P athologist Signature Magnesium 0.81 0.69 - 1.07 [facility] mmol/L [facility] LABORATORY Specimen Anatomical Collection Method Collection Time Receive d Time (Source) Location / / Volume Laterality Blood 12/09/2021 6:18 AM 2 6:33 EDT AM EDT Resulting Agency Comment Spec In Lab Iker Cuevas MD CHEMISTRY ORDERABLES Performing Organization Address City/[facility] [place] [address] (ABNORMAL) Troponin (12/09/2021 6:18 AM EDT) P athologist Signature Troponin-T 1.13 (H) 0.00 - [facility] 0.00 ng/mL [facility] LABORATORY Comment: The 99th percentile for Troponin T is le ss than 0.01 ng/mL, any detectable cTnT concentration using this assay should be considered elevated. According to the third universal definit ion of myocardial infarction the following criteria with a clinical prese ntation consistent with acute myocardial ischemia meets the diagnosis for a myocardial infarction ([place]). Detection of a rise and/or fall of [...] additional sample may be indicated. Reference: Third [place] Definition of Myocardial Infarction. Journal of the [place] [employer] 2012;60:1581-98 Specimen Anatomical Collection Method Collection Time Receive d Time (Source) Location / / Volume Laterality Blood 12/09/2021 6:18 AM 6:33 EDT AM EDT Resulting Agency Comment Spec In Lab Iker Cuevas MD CHEMISTRY ORDERABLES Performing Organization Address City/State/ZIP [place] [address] XR Chest One View [...] who have questions please contact the health patient care coordinator that requested your imaging first. ? Electronically signed by: Yoselin White, [facility] ([phone]), at 12/09/2021 5:35 AM Narrative 12/09/2021 5:35 [...] ho have questions please contact the health patient care coordinator that requested your imaging first. Electronically signed by: Yoselin White, [facility] ([phone]), at 12/09/2021 5:35 AM Amber Sanches MD IMG DX ORDERABLES (ABNORMAL) BLOOD GAS 2 ARTERIAL (12/09/2021 5:14 AM EDT) Analysis Performed At Patho logist Time Signature pH Art 7.43 7.35 - [facility] 7.45 [facility] LABORATORY pCO2 Art 36 35 - 45 [facility] LABORATORY pO2 Art 67 (L) 85 - 104 [facility] LABORATORY HCO3 Art 23.4 20.0 - [facility] 26.0 [facility] mmol/L [facility] LABORATORY BE Art -0.9 -3.0 - 3.0 [facility] mmol/L [facility] LABORATORY Hgb Blood Gas 13.2 (L) 13.7 - [facility] 16.5 g/dL [facility] O2HB Art 91.3 (L) 94.0 - [facility] 97.0 % [facility] LABORATORY COHB Art 0.4 % [facility] LABORATORY Comment: Nonsmokers: 0.5-1.5% COHB Smokers: Variable, but usually less than 10% Toxic: 20-30% COHB Lethal: Greater than 60% COHB METHB Art 0.4 <=1.5 % [facility] LABORATORY Na Whole Blood 138 135 - 145 mmol/L [facility] LABORATORY K Whole Blood 4.1 3.5 - 5.0 mmol/L [facility] LABORATORY Comment: Please note: Patients with WBC >100,000 may have falsely elevated Potassium levels. Contact the Clinical Chemistry L aboratory if there are any questions. ICa Whole Blood 1.09 (L) 1.15 - 1.33 mmol/L [facility] LABORATORY Comment: Note: ??Total bilirubin higher than 20 m g/dL may lead to falsely low ionized calcium. CL Whole Blood 104 98 - 107 mmol/L [facility] LABORATORY Gluc Whole Bld 223 (H) 65 - 199 mg/dL [facility] LABORATORY Comment: Diabetes: >=200 mg/dL plus symp toms. Lactate WB 2.7 (H) 0.5 - 2.2 mmol/L [facility] LABORATORY FIO2 Art 35 % [facility] LABORATORY Flow Art 8.0 LPM [facility] LABORATORY PF Ratio Art 191 [place] [facility] [facility] Specimen Anatomical Collection Method Collection Time Receive d Time (Source) Location / / Volume Laterality Blood 12/09/2021 5:14 AM 2 5:14 EDT AM EDT Iker Cuevas MD CHEMISTRY ORDERABLES Performing Organization Address City/State/ZIP Code [place] [address] POCT Glucose (12/09/2021 4:46 AM EDT) athologist Signature POC Glucose 198 65 - 199 BARBARA RYAN mg/dL [facility] Comment: Supplemental ranges: <140 mg/dL before meals <180 mg/dL all other times of the day Specimen Anatomical Collection Method Collection Time Receive d Time (Source) Location / / Volume Laterality Blood 12/09/2021 4:46 AM 2 4:46 EDT AM EDT Iker Cuevas MD POINT OF CARE TEST ORDERABLE S Performing Organization Address City/State/ZIP [place] [address] (ABNORMAL) POCT Glucose (12/09/2021 3:01 AM EDT) athologist Signature POC Glucose 225 (H) 65 - 199 [place] mg/dL [facility] Comment: Supplemental ranges: <140 mg/dL before meals <180 mg/dL all other times of the day Specimen Anatomical Collection Method Collection Time Receive d Time (Source) Location / / Volume Laterality Blood 12/09/2021 3:01 AM 2 3:01 EDT AM EDT Iker Cuevas MD POINT OF CARE TEST ORDERABLE S Performing Organization Address City/State/ZIP [place] [address] (ABNORMAL) POCT Glucose (12/08/2021 10:55 PM EDT) P athologist Signature POC Glucose 327 (H) 65 - 199 [place]YAN mg/dL [facility] Comment: Supplemental ranges: <140 mg/dL before meals <180 mg/dL all other times of the day Specimen Anatomical Collection Method Collection Time Receive d Time (Source) Location / / Volume Laterality Blood 12/08/2021 10:55 12/08/2021 PM EDT 10:55 PM EDT Iker Cuevas MD POINT OF CARE TEST ORDERABLE S Performing Organization Address City/[facility]/ZIP Code [place] [address] Heparin (unfractionated) Level (12/08/2021 10:03 PM EDT) athologist Signature Heparin UFH 0.18 IU/mL [facility] Comment: Heparin (anti-Xa) levels should be [...] Cuevas MD HEMATOLOGY ORDERABLES Performing Organization Address City/[facility]/ZIP Code [place] [address] (ABNORMAL) Troponin (12/08/2021 10:03 PM EDT) athologist Signature Troponin-T 0.92 (H) 0.00 - [facility] 0.00 ng/mL [facility] Comment: The 99th percentile for Troponin T is le ss than 0.01 ng/mL, any detectable cTnT concentration using this assay should be considered elevated. According to the third universal definit ion of myocardial infarction the following criteria with a clinical prese ntation consistent with acute myocardial ischemia meets the diagnosis for a myocardial infarction ([place]). Detection of a rise and/or fall of [...] additional sample may be indicated. Reference: Third [place] Definition of Myocardial Infarction. Journal of the [place] [employer] 2012;60:1581-98 Specimen Anatomical Collection Method Collection Time Receive d Time (Source) Location / / Volume Laterality Blood 12/08/2021 10:03 12/08/2021 PM EDT 10:31 PM EDT Resulting Agency Comment Spec In Lab Iker Cuevas MD CHEMISTRY ORDERABLES Performing Organization Address City/[facility]/ZIP Code [place] [address] (ABNORMAL) POCT Glucose (12/08/2021 8:22 PM EDT) athologist Signature POC Glucose 429 (H) 65 - 199 [facility] Comment: Supplemental ranges: <140 mg/dL before meals <180 mg/dL all other times of the day Specimen Anatomical Collection Method Collection Time Receive d Time (Source) Location / / Volume Laterality Blood 12/08/2021 8:22 PM 8:22 EDT PM EDT Iker Cuevas MD POINT OF CARE TEST ORDERABLE S Performing Organization Address City/[facility]/ZIP Code [place] [address] (ABNORMAL) POCT Glucose (12/08/2021 7:06 PM EDT) athologist Signature POC Glucose 442 (H) 65 - 199 [facility] Comment: Supplemental ranges: <140 mg/dL before meals <180 mg/dL all other times of the day Specimen Anatomical Collection Method Collection Time Receive d Time (Source) Location / / Volume Laterality Blood 12/08/2021 7:06 PM 2 7:06 EDT PM EDT Iker Cuevas MD POINT OF CARE TEST ORDERABLE S Performing Organization Address City/[facility]/ZIP Code Phon e Number [address] Magnesium (12/08/2021 6:02 PM EDT) athologist Signature Magnesium 0.86 0.69 - 1.07 [facility] mmol/L [facility] Specimen Anatomical Collection Method Collection Time Receive d Time (Source) Location / / Volume Laterality Blood 12/08/2021 6:02 PM 2 6:36 EDT PM EDT Resulting Agency Comment Spec In Lab Iker Cuevas MD CHEMISTRY ORDERABLES Performing Organization Address City/State/ZIP Code [place] [address] (ABNORMAL) Basic Metabolic Panel (non-fasting) (12/08/2021 6:02 PM EDT) athologist Signature Glucose Lvl 392 (H) 65 - 199 [facility] mg/dL [facility] Comment: Diabetes: >=200 mg/dL plus symp toms BUN 41 (H) 10 - 20 mg/dL [facility] Creatinine 1.44 0.80 - 1.50 mg/dL [facility] Sodium 138 135 - 145 mmol/L [facility] Potassium 4.5 3.5 - 5.0 mmol/L [facility] Comment: Please note: ??Patients with WBC >100,00 0 may have falsely elevated Potassium levels. ??For accurate Potassium quantif ication in these patients send serum separator tube (gold top) for subsequent determinations. ??Contact the Clinical Chemistry Laboratory if there are any qu estions. Chloride 102 98 - 107 mmol/L [facility] CO2 20 (L) 22 - 31 mmol/L [facility] Anion Gap 16 (H) 5 - 15 mmol/L [facility] Calcium 8.6 8.5 - 10.5 mg/dL [facility] Estimated GFR 47 (L) >=60 mL/min/1.73 m?? [facility] Comment: This patient? s [...] Organization Address City/State/[place] [address] (ABNORMAL) Differential, Automated (12/08/2021 6:02 PM EDT) [facility] gist Method Time Signature Neutrophils % 89.5 % [facility] Neutr Abs (ANC) 13.97 (H) 1.70 - [facility] 6.10 [facility] x10(3)/[facility] L LABORATORY Lymphocytes % 3.7 % [facility] Lymphocytes Abs 0.6 (L) 0.9 - 3.2 [facility] x10(3)/[facility] LABORATORY Monocytes % 6.1 % [facility] Monocyte Abs 1.0 (H) 0.3 - 0.9 [facility] x10(3)/[facility] LABORATORY Eosinophils % 0.0 % [facility] Eosinophils Abs 0.0 0.0 - 0.4 [facility] x10(3)/[facility] LABORATORY Basophils % 0.2 % [facility] Basophils Abs 0.0 0.0 - 0.1 [facility] x10(3)/[facility] LABORATORY Immature Gran % 0.50 % [facility] Comment: Immature granulocytes(IG's)percentage an d absolute count will include metamyelocytes, myelocytes, and promyelo cytes. Blood smears from CBCs yielding IG's will be scanned manually for concor dance. If this scan disagrees with the automated IG or if promyelocytes are not ed, a manual differential will be performed. Melisa Gran Abs 0.08 (H) 0.00 - 0.04 x10(3)/[facility] LABORATORY Specimen Anatomical Collection Method Collection Time Receive d Time (Source) Location / / Volume Laterality Blood 12/08/2021 6:02 PM 6:36 EDT PM EDT Resulting Agency Comment Spec In Lab Morgan BROWN HEMATOLOGY ORDERABLES Performing Organization Address City/State/[place] [address] (ABNORMAL) Hemogram (12/08/2021 6:02 PM EDT) Analysis Performed At Patho logist Time Signature WBC 15.6 (H) 4.0 - 9.5 [facility] x10(3)/[facility] LABORATORY RBC 4.05 (L) 4.58 - [facility] 5.54 [facility] x10(6)/[facility] LABORATORY Hemoglobin 11.8 (L) 13.7 - [facility] 16.5 g/dL [facility] Hematocrit 35.8 (L) 40.5 - [facility] 48.5 % [facility] MCV 88.4 82.9 - [facility] 93.1 fL [facility] MCH 29.1 27.5 - [facility] 32.1 pg [facility] MCHC 33.0 32.0 - [facility] 35.7 g/dL [facility] Platelets 178 145 - 357 BARBARA DAVIS x10(3)/[facility] LABORATORY RDWSD 49.3 (H) 36.0 - BARBARA DAVIS 45.0 [facility] LABORATORY RDWCV 15.1 (H) 11.4 - BARBARA DAVIS 13.8 % [facility] MPV 10.4 7.6 - 12.9 [place]BAR[facility] DAVIS [facility] LABORATORY nRBC % Auto 0.0 % [facility] nRBC Abs Auto 0.000 0.000 - BARBARA DAVIS 0.000 [facility] x10(3)/[facility] LABORATORY Specimen Anatomical Collection Method Collection Time Receive d Time (Source) Location / / Volume Laterality Blood 12/08/2021 6:02 PM 6:36 EDT PM EDT Resulting Agency Comment Spec In Lab Morgan BROWN HEMATOLOGY ORDERABLES Performing Organization Address City/State/[place] [address] (ABNORMAL) Troponin (12/08/2021 6:02 PM EDT) P athologist Signature Troponin-T 0.89 (H) 0.00 - BARBARA DAVIS 0.00 ng/mL [facility] Comment: The 99th percentile for Troponin T is le ss than 0.01 ng/mL, any detectable cTnT concentration using this assay should be considered elevated. According to the third universal definit ion of myocardial infarction the following criteria with a clinical prese ntation consistent with acute myocardial ischemia meets the diagnosis for a myocardial infarction ([place]). Detection of a rise and/or fall of [...] additional sample may be indicated. Reference: Third [place] Definition of Myocardial Infarction. Journal of the [place] College [employer] 2012;60:1581-98 Specimen Anatomical Collection Method Collection Time Receive d Time (Source) Location / / Volume Laterality Blood 12/08/2021 6:02 PM 6:36 EDT PM EDT Resulting Agency Comment Spec In Lab Iker Cuevas MD CHEMISTRY ORDERABLES Performing Organization Address City/State/ZIP Code [place] [address] COVID-19 PCR (12/08/2021 5:00 PM EDT) [facility] Method Time Signature SARS-CoV-2 Not Detected Not Detected BARBARA RNA PCR [facility] Comment: This result should be [...] using the Simplexa COVID-19 Direct Assay by ADVIZEjoi marcum as authorized by the FDA issued [...] Department of Pathology and Laboratory Medicine at [facility], certified under the Clinical Laboratory Improvement [...] fact sheets at the following FDA website: https://www.fda.gov/medical-devices/vzszxvluhsv-tlzxdsk-8943-xznqk-20-gaugqbmkq- hmt-voqchkafzprckm-gqyykjw-devices/pbrdc-csleznfjswe-uoug SARS-CoV-2 Source RETAIL ZONE SPECIALIST Swab [facility] Specimen (Source) Anatomical Collection Method Collection Time Re ceived Time Location / / Volume Laterality Nasopharyngeal Swab 12/08/2021 5:00 12/08 PM EDT 6:03 PM EDT Comment: Symptoms->Surveillance Resulting Agency Comment Spec In Lab Iker Cuevas MD MICROBIOLOGY - GENERAL ORDER [place] Performing Organization Address City/State/[place] [address] EKG 12 Lead (12/08/2021 4:40 PM EDT) Component Value Ref Range Test Analysis Performed Pathologis t Method Time At Signature Ventricular rate 78 BPM MUSE SYSTEM Atrial Rate 78 BPM MUSE SYSTEM P-R Interval 152 ms MUSE SYSTEM QRS Duration 96 ms MUSE SYSTEM Q-T Interval 396 ms MUSE SYSTEM QTC Calculated 451 ms MUSE SYSTEM (Bezet) Calculated P Seward 44 degrees MUSE SYSTEM Calculated R Seward -31 degrees MUSE SYSTEM Calculated T Seward 124 degrees MUSE SYSTEM INTERPRETATION Normal sinus [...] POC Glucose 400 (H) 65 - 199 [facility] mg/dL [facility] Comment: Supplemental ranges: <140 mg/dL before meals <180 mg/dL all other times of the day Specimen Anatomical Collection Method Collection Time Receive d Time (Source) Location / / Volume Laterality Blood 12/08/2021 4:34 PM 2 4:34 EDT PM EDT Iker Cuevas MD POINT OF CARE TEST ORDERABLE S Performing Organization Address City/State/ZIP Code [place] [address] documented in this encounter [...] Given 11/23 10:30 AM EDT 300 mcg (ASSOCIATE FINANCIAL PLANNER) ONCE PRN, Starting on Wed12/10/21 at 1030, [...] mg 0556 (G iven - Provider: Maryjane Joyec, VAMSI)0805 (SEP Hold - Provider: Admin Adt [...] 12/12/2021 acetaminophen (Tylenol) tablet 650 mg 0805 ([facility] Hold - Provider: Admin Adt - Reason: Transfer to a Procedural area)1230 ([facility] Unhold - Provider: Admin Adt) 650 mg, Oral, EVERY 4 HOURS PRN, Startin g on Wed12/08/21 at 1639, Until Wed12/12/21 at 1312, Pain, Headaches, Maximum dose of acetaminophen is 4000 mg from all sources in 24 hours. When ordered for pain , acetaminophen should be given even whe n other ordered pain medications are indicated. , Routine bisacodyL (Dulcolax) suppository 10 mg 0805 ([facility] Hold - Provider: Admin Adt - Reason: Transfer to a Procedural area)1230 ([facility] Unhold - Provider: Admin Adt) 10 mg, Rectal, DAILY PRN, Starting on e 12/09/21 at 1629, Until Wed12/12/21 at 1312, Constipation, Routine dextrose 10% infusion(Linked Group 2) 0805 ([facility] Hold - Provider: Admin Adt - Reason: Transfer to a Procedural area)1230 ([facility] Unhold - Provider: Admin Adt) 250 mL, [...] (Intra-Procedure), Routine niCARdipine (Cardene) (100 mcg/mL) dilution (ASSOCIATE FINANCIAL PLANNER) (CANCELED) 1030 (Given - Provider: Vitaliy Nobles [...] episode. & nbsp; For persistent hypoglycemia, con sweatband perforator longer-acting treatment for the duration of the [...]
Routine documented in this encounter Care Teams Refrigeration Plant Operator Relationship Specialty Start Date End Date Lovely Vicente MD PCP - General 04/16/15 [address] [place] [address] documented as of this encounter
--- OUTSIDE RECORDS SUMMARY | 2022-02-16 08:13 | XMS_ITS | Encounter Summary ---
:1945 [place] [address] Care Team Providers Name Role Phone Lovely Vicente MD Primary Care Provider Encounter Details Date Type Department Care Team Description 03/20/2021 Telephone Neurology at [facility] Hugo Gaston MD [facility] [place] [address] [place] [address] [phone] (Wo rk) Social History Tobacco Use Types [...] - 03/20/2021 6:03 PM EDT Call from [facility]. 76 M with h/o DM. CABG, AFib. Dizziness since 5 am. Double vision while driving. Intermittent symptoms till 1pm when he came to ED. Was off balance. Negative examination. 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 MRI negative. He's now better. Has atherosclerotic disease. Recommend adding aspirin 81 daily. Outpatient workup for any vestibular issues. Hugo Gaston MD Department of Neurology Pager # [phone] documented in this encounter Plan of Treatment Upcoming Encounters Date Type Specialty Care Team Description 02/19/2022 Laboratory Appointment Lab 02/19/2022 Office Visit Cardiology Liz Poole PA [facility] Cardiology [place], [place] [address] (Wo rk) 03/26/2022 Office Visit Cardiology Vitaliy Nobles MD [facility] CARDIOLOGY [place], [place] [address] (Wo rk) documented as of this encounter Visit Diagnoses Not on filedocumented in this encounter Care Teams Lead Military Analyst Relationship Specialty Start Date End Date Lovely Vicente MD PCP - General 04/16/[address] [place] [address] documented as of this encounter
--- OUTSIDE RECORDS SUMMARY | 2022-02-16 08:13 | XMS_ITS | Encounter Summary ---
:1945 Author Organization [facility] [place] [address] Care Team Providers Name Role Phone Lovely Vicente MD Primary Care Provider Encounter Details Date Type Department Care Team Description 03/20/2021 Ancillary Procedure Radiology Library at [place] [address] [place] [address] [phone] Social History Tobacco Use Types Packs/Day Years [...] [facility] er Cardiology Dept [place], [place] [address] (Wo rk) 03/26/2022 Office Visit Cardiology Vitaliy Nobles MD [facility] CARDIOLOGY [place], [place] [address] (Wo rk) documented as of [...] Organization Address City/State/ZIP Code Phon e Number [place], [place] documented in this encounter Visit Diagnoses Not on filedocumented in this encounter Care Teams Strap Sewer Relationship Specialty Start Date End Date Lovely Vicente MD PCP - General 04/16/[address] [place] [address] documented as of this encounter
--- OUTSIDE RECORDS SUMMARY | 2022-02-16 08:13 | XMS_ITS | Encounter Summary ---
:1945 Author Organization [facility] [place] [address] Care Team Providers Name Role Phone Lovely Vicente MD Primary Care Provider Encounter Details Date Type Department Care Team Description 12/07/2021 Telephone Cardiology Eddi Briceño Jr., [facility] [place] [address] [facility] [phone] CARDIOLOGY DEPT [place], [place] [address] (Wo rk) Social History Tobacco [...] the OSH ED provider/staff member. Referring Location: [facility] Referring Provider: Marisela Dean, DIRECTOR OF EXHIBITS [address] [place] [address] Don Veda Kushal 76 y.o. w / [...] bpm, LAFB, poor R wave progression, septal MO, and lateral STD, overall no significantchange from [...] Visit Cardiology Liz Poole PA [facility] Cardiology Dept [place], [place] [address] (Wo rk) 03/26/2022 Office Visit Cardiology Vitaliy Nobles MD [facility] ER CARDIOLOGY [place], [place] [address] (Wo rk) documented as of this encounter Visit Diagnoses Not on filedocumented in this encounter Care Teams Subassemblies Wirer Relationship Specialty Start Date End Date Lovely Vicente MD PCP - General 04/16/[address] [place] [address] documented as of this encounter
--- OUTSIDE RECORDS SUMMARY | 2022-02-16 08:13 | XMS_ITS | Encounter Summary ---
:1945 Author Organization [facility] [address] Care Team Providers Name Role Phone Lovely Vicente MD Primary Care Provider Encounter Details Date Type Department Care Team Description 12/07/2021 [place] [address] Social History Tobacco Use Types Packs/Day [...] PA [facility] Cardiology Dept [place], [place] [address] (Wo rk) 03/26/2022 Office Visit Cardiology Vitaliy Nobles MD [facility] CARDIOLOGY [place], [place] [address] (Wo rk) documented as of [...] filedocumented in this encounter Care Teams Gas Station Attendant Relationship Specialty Start Date End Date Lovely Vicente MD PCP - General 04/16/[address] [place] [address] documented as of this encounter
--- OUTSIDE RECORDS SUMMARY | 2022-02-16 08:13 | XMS_ITS | Encounter Summary ---
:1945 Author Organization [facility] [place] [address] Care Team Providers Name Role Phone Lovely Vicente MD Primary Care Provider Encounter Details Date Type Department Care Team Description 12/07/2021 Ancillary Procedure [facility] Lovely murillo MD [facility] [address] [phone] (Wo rk) [address] [phone] Social History Tobacco Use Types Packs/Day Years [...] 02/19/2022 Office Visit Cardiology Liz Poole PA [facility] Medical [facility] er Cardiology Dept [place], [place] [address] (Wo rk) 03/26/2022 Office Visit Cardiology Vitaliy Nobles MD [facility] ER CARDIOLOGY [place], [place] [address] (Wo rk) documented as of [...] Organization Address City/State/ZIP Code Phon e Number [place], [place] documented in this encounter Visit Diagnoses Not on filedocumented in this encounter Care Teams Stadium Attendant Relationship Specialty Start Date End Date Lovely Vicente MD PCP - General 04/16/[address] [place] [address] documented as of this encounter
--- OUTSIDE RECORDS SUMMARY | 2022-02-16 08:13 | XMS_ITS | Encounter Summary ---
:1945 [place] [address] Care Team Providers Name Role Phone Lovely Vicente MD Primary Care Provider Reason for Visit Reason Comments Skin Cancer Examination Encounter Details Date Type Department Care Team Description 03/20/2021 Office Visit Dermatology at [facility] Brennen Rene MD History of melanoma; [facility] History of dysplastic nevus; [address] Multiple benign nevi; [place] [address] [facility] [place] (seborrheic keratosis); [phone] RD-DERMATOLOGY [place] (actinic keratosis) [place], [place] [address] Social History Tobacco Use Types [...] no SOCIAL HISTORY 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 Last visit at [facility] Derm: 01/02/2020 Medications: Reviewed in eD-H [...] FSE; history of Melanoma []Note routed to dental secretary [x]Recall has been placed in scheduling system []Appointment scheduled at checkout Scribe attestation: Yoana Pang LPN has performed the documentation for this encounter in the presence of and acting as a scribe for LAURA RENE MD I performed the above scribed service and agree with the accuracy of the documentation in this encounter. Reviewed and signed by: LAURA RENE MD Dermatology [facility] documented in this encounter Plan of Treatment Upcoming Encounters Date Type Specialty Care Team Description 02/19/2022 Laboratory Appointment Lab 02/19/2022 Office Visit Cardiology Vendetti, Liz, PA [facility] Cardiology Dept [place], [place] [address] (Wo rk) 03/26/2022 Office Visit Cardiology Vitaliy Nobles MD [facility] CARDIOLOGY [place], [place] [address] (Wo rk) documented as of this encounter Visit Diagnoses Diagnosis History of melanoma Personal history of malignant melanoma o f skin History of dysplastic nevus Personal history of diseases of skin and subcutaneous tissue Multiple benign nevi Benign neoplasm of skin, site unspecifie d [place] (seborrheic keratosis) Other seborrheic keratosis [place] (actinic keratosis) Actinic keratosis documented in this encounter Care Teams Lard Mixer Relationship Specialty Start Date End Date Lovely Vicente MD PCP - General 04/16/[address] [place] [address] documented as of this encounter
--- OUTSIDE RECORDS SUMMARY | 2022-02-16 08:13 | XMS_ITS | Encounter Summary ---
:1945 Author Organization [facility] [place] [address] Care Team Providers Name Role Phone Lovely Vicente MD Primary Care Provider Reason for Referral Diagnostic Test (Routine) - Closed Specialty Diagnoses / Procedures Referred By Contact Refer red To Contact Cardiology Diagnoses Chronic systolic heart failure Danette Maxwell APRN [facility] Non-Inv Card Lab Procedures Echocardiogram Transthoracic(Leb) [facility] [place] [address] [place] [address] Referral ID Status Reason Start Date Expiration Date Visits V isits Requested Authorized [id number] Closed Specialty 07/17/2019 09/14/2019 1 1 Service Requested Reason for Visit Diagnostic Test (Routine) - Closed Specialty Diagnoses / Procedures Referred By Contact Refer red To Contact Cardiology Diagnoses Chronic systolic heart failure Danette Maxwell APRN [facility] Non-Inv Card Lab Procedures Echocardiogram Transthoracic(Leb) [facility] [place] [address] [place] [address] Referral ID Status Reason Start Date Expiration Date Visits V isits Requested Authorized [id number] Closed Specialty 07/17/2019 09/14/2019 1 1 Service Requested Encounter Details Date Type Department Care Team Description 07/28/2019 Hospital Encounter Non-Invasive Chronic s ystolic [place] [address] Social History Tobacco Use Types Packs/Day [...] Poole PA [facility] Cardiology Dept [place], [place] [address] (Wo rk) 03/26/2022 Office Visit Cardiology Vitaliy Nobles MD [facility] CARDIOLOGY [place], [place] [address] (Wo rk) documented as of [...] Mccollum ? (Age): 1945(74y) Med Rec#: ? [id number] ?Sex: ?M ? Site Loc: ? [facility] ?Ht / Wt: ??172(cm)/81(kg) Pt. Loc: ?Echo Lab ?BSA: ?1 Study Date: ?? 07/28/2019 ?Pt. Type: Outpatient Tape: ? Referring: MARY ELLEN Reading: Ifeanyi Truong ([id number]) E Tailer: Fadumo Flanagan RDCS, FASE Diagnosis: *Chronic systolic [...] E-wave Vmax ?1 ?m/sec ? MV deceleration ycwq170.5 ? msec ? MV A-wave Vmax ?1 [...] ? Pulmonic Valve/Qp:Qs ?Value ?Units (Range) ? MA end-diastolic Vma1.1 ?m/sec ? Wall Motion: Segment Name ?Rest ? Base-Anteroseptal ?? Normal ? Base-Anterior ? Normal ? Base-Anterolateral ??Normal ? Base-Posterolateral Normal ? Base-Inferior ? Akinetic ? Base-Inferoseptal ?? Normal ? Mid-Anteroseptal ?Normal ? Mid-Anterior ?Hypokinetic ? Mid-Anterolateral ?? Normal ? Mid-Posterolateral ??Normal ? Mid-Inferior ?Hypokinetic ? Mid-Inferoseptal ?Normal ? [place]-Septal ? Normal ? [place]-Anterior ? Hypokinetic ? [place]-Lateral ?Normal ? [place]-Inferior ? Akinetic ? [place]-Tip ?Hypokinetic ? This report has been electronically sign ed by: _ Ifeanyi Truong M.D. ? 07/28/2019 0 8:38:01 Images reviewed and interpretation verholger iewanda [facility] Cardiac Ultrasound Laboratory Procedure Note Ifeanyi Truong MD - 07/28/2019Formatt ing of this note might be different from the original. Procedure: Transthoracic Echocardiogram Patient: NATALYA MCBRIDE(Age): [birth year]74y) Med Rec#: [id number] Sex: M Site Loc: [facility] Ht / Wt: 172(cm)/81(kg) Pt. Loc: Echo Lab BSA: 1.94 Study Date: 07/28/2019 Pt. Type: Outpati ent Tape: Referring: MARY ELLEN Reading: Ifeanyi Truong ([id number]) E Tailer: Fadumo Flanagan RDCS, REGINA Diagnosis: *Chronic systolic [...] MV E-wave Vmax 1 m/sec MV deceleration uicv796.5 msec MV A-wave Vmax 1 m/sec MV [...] 0.7 ratio Pulmonic Valve/Qp:Qs Value Units (Range) MA end-diastolic Vma1.1 m/sec Wall Motion: Segment Name Rest Base-Anteroseptal Normal Base-Anterior Normal Base-Anterolateral Normal Base-Posterolateral Normal Base-Inferior Akinetic Base-Inferoseptal Normal Mid-Anteroseptal Normal Mid-Anterior Hypokinetic Mid-Anterolateral Normal Mid-Posterolateral Normal Mid-Inferior Hypokinetic Mid-Inferoseptal Normal [place]-Septal Normal [place]-Anterior Hypokinetic [place]-Lateral Normal [place]-Inferior Akinetic [place]-Tip Hypokinetic This report has been electronically sign ed by: _ Ifeanyi Truong M.D. 07/28/2019 08:38:0 1 Images reviewed and interpretation verif ied [facility] Cardiac Ultrasound Laboratory Danette A Hans RN INFORMATICS ECHO ORDERABLES Performing Organization Address City/State/ZIP Code [...] Routine documented in this encounter Care Teams Senior Animal Trainer Relationship Specialty Start Date End Date Lovely Vicente MD PCP - General 04/16/[address] [place] [address] documented as of this encounter
--- OUTSIDE RECORDS SUMMARY | 2022-02-16 08:13 | XMS_ITS | Encounter Summary ---
:1945 [place] [address] Care Team Providers Name Role Phone Lovely Vicente MD Primary Care Provider Encounter Details Date Type Department Care Team Description 11/29/2017 Hospital Encounter Radiology Library at Estefany Maxwell Pain [facility] FLOORING INSTALLER [facility] [place] [address] CARDIOLOGY [phone] [place], [place] [address] (Wo rk) Social History Tobacco [...] 02/19/2022 Office Visit Cardiology Liz Poole PA [facility] Cardiology Dept [place], [place] [address] (Wo rk) 03/26/2022 Office Visit Cardiology Vitaliy Nobles MD [facility] CARDIOLOGY [place], [place] [address] (Wo rk) documented as of [...] Organization Address City/State/ZIP Code Phon e Number [place], [place] documented in this encounter Visit Diagnoses Diagnosis Pain Generalized pain documented in this encounter Care Teams Vocational Rehabilitation Administrator Relationship Specialty Start Date End Date Lovely Vicente MD PCP - General 04/16/[address] [place] [address] documented as of this encounter
--- OUTSIDE RECORDS SUMMARY | 2022-02-16 08:14 | XMS_ITS | Encounter Summary ---
:1945 Author Organization [facility] [place] [address] Care Team Providers Name Role Phone Lovely Vicente MD Primary Care Provider Encounter Details Date Type Department Care Team Description 10/05/2017 Telephone Cardiology at [facility] Tamiko Sin [place] [facility] [place] [address] CARDIOLOGY DEPT [phone] [place], [place] [address] (Wo rk) Social History Tobacco [...] PA [facility] er Cardiology Dept [place], [place] [address] (Wo rk) 03/26/2022 Office Visit Cardiology Vitaliy Nobles MD [facility] ER CARDIOLOGY [place], [place] [address] (Wo rk) documented as of this encounter Visit Diagnoses Not on filedocumented in this encounter Care Teams Spring Coverer Relationship Specialty Start Date End Date Lovely Vicente MD PCP - General 04/16/[address] [place] [address] documented as of this encounter
--- OUTSIDE RECORDS SUMMARY | 2022-02-16 08:14 | XMS_ITS | Encounter Summary ---
:1945 Author Organization [facility] [place] [address] Care Team Providers Name Role Phone Lovely Vicente MD Primary Care Provider Reason for Referral Diagnostic Test (Routine) - Closed Specialty Diagnoses / Procedures Referred By Contact Refer red To Contact Cardiology Diagnoses Ischemic cardiomyopathy Acute on chronic systolic congestive heart failure Danette Maxwell APRN [facility] Non-Inv Card Lab Procedures Echocardiogram Transthoracic(Leb) [facility] [place] [address] [place] [address] Referral ID Status Reason Start Date Expiration Date Visits V isits Requested Authorized [id number] Closed Specialty 08/30/2017 08/30/2018 1 1 Service Requested Reason for Visit Diagnostic Test (Routine) - Closed Specialty Diagnoses / Procedures Referred By Contact Refer red To Contact Cardiology Diagnoses Ischemic cardiomyopathy Acute on chronic systolic congestive heart failure Danette Maxwell APRN [facility] Non-Inv Card Lab Procedures Echocardiogram Transthoracic(Leb) [facility] [place] [address] [place] [address] Referral ID Status Reason Start Date Expiration Date Visits V isits Requested Authorized [id number] Closed Specialty 08/30/2017 08/30/2018 1 1 Service Requested Encounter Details Date Type Department Care Team Description 10/07/2017 Hospital Encounter Non-Invasive Ischemic cardiomyopathy; Cardiology Lab Barbara Craig on chronic systolic [place] [address] Social History Tobacco Use Types Packs/Day [...] [facility] Cardiology Dept [place], [place] [address] (Wo rk) 03/26/2022 Office Visit Cardiology Vitaliy Nobles MD [facility] ER DR CARDIOLOGY [place] [address] (Wo rk) documented as of this encounter [...] Mccollum ? (Age): 1945(72y) Med Rec#: ? [id number] ?Sex: ?M ? Site Loc: ? [facility] ?Ht / Wt: ??173(cm)/82(kg) Pt. Loc: ?Echo Lab ?BSA: ?1.96 Study Date: ?? 10/07/2017 ?Pt. Type: Outpatient Tape: ? Referring: Danette Maxwell Reading: Iker Cuevas ([id number]) Flower Stripper: Yonathan Bocanegra Diagnosis: *ICD-10-PCS Ischemic cardiomyopathy (I2 [...] E-wave Vmax ?1.2 ?m/sec ? MV deceleration [id number] ?msec ? MV A-wave Vmax ?1 ?m/sec [...] ? Mid-Inferior ?Hypokinetic ? Mid-Inferoseptal ?Hypokinetic ? [place]-Septal ? Akinetic ? [place]-Anterior ? Hypokinetic ? [place]-Lateral ?Hypokinetic ? [place]-Inferior ? Hypokinetic ? [place]-Tip ?Akinetic ? This report has been electronically sign ed by: _ Iker Cuevas M.D. ? 10/07/2017 11:12:34 Images reviewed and interpretation verif ied [facility] Cardiac Ultrasound Laboratory Procedure Note Iker Cuevas MD - 10/07/2017Formatti ng of this note might be different from the original. Procedure: Transthoracic Echocardiogram Patient: NATALYA MCBRIDE(Age): [birth year]72y) Med Rec#: [id number] Sex: M Site Loc: [facility] Ht / Wt: 173(cm)/82(kg) Pt. Loc: Echo Lab BSA: 1.96 Study Date: 10/07/2017 Pt. Type: Outpati ent Tape: Referring: Danette Maxwell Reading: Iker Cuevas ([id number]) Flower Stripper: Yonathan Bocanegra Diagnosis: *ICD-10-PCS Ischemic cardiomyopathy (I2 [...] MV E-wave Vmax 1.2 m/sec MV deceleration [id number] msec MV A-wave Vmax 1 m/sec MV [...] Akinetic Mid-Posterolateral Hypokinetic Mid-Inferior Hypokinetic Mid-Inferoseptal Hypokinetic [place]-Septal Akinetic [place]-Anterior Hypokinetic [place]-Lateral Hypokinetic [place]-Inferior Hypokinetic [place]-Tip Akinetic This report has been electronically sign ed by: _ Iker Cuevas M.D. 10/07/2017 11:12 :34 Images reviewed and interpretation elvie hwang [facility] Cardiac Ultrasound Laboratory Danette A Hans [...] Routine documented in this encounter Care Teams Career Developer Relationship Specialty Start Date End Date Lovely Vicente MD PCP - General 04/16/[address] [place] [address] documented as of this encounter
--- OUTSIDE RECORDS SUMMARY | 2022-02-16 08:14 | XMS_ITS | Encounter Summary ---
:1945 Author Organization [facility] Address [facility] [place] [address] Care Team Providers Name Role Phone Lovely Vicente MD Primary Care Provider Encounter Details Date Type Department Care Team Description 10/07/2017 Office Visit Cardiology at [facility] Danette Maxwell Chronic systolic heart failu re; [facility] A, TRANSCRIPTION S/P CABG x 3; Drive [facility] On amiodarone therapy; [place], [place] Atrial fibrillation, unspecified type; [address] CARDIOLOGY ASCVD (arteriosclerotic cardiovascular d isease) [phone] [place], [place] [address] Social History Tobacco Use Types [...] - documented in this encounter Progress Notes [place] Danette A, TRANSCRIPTION - 10/07/2017 11:20 AM EDT ID and [...] painful and swollen right foot right d/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 [...] by Dr. Espino On IV antibiotics at [facility] Today: Mr. Fatima is accompanied by his [...] continue to see Dr. Bains well at [facility] and follow his wound on his right lower extremity. And she will continue to direct antibiotic treatment. Ihave asked that the echocardiogram results be faxed to Dr. Zurita at [facility]. 1. ASCVD Continue ASA, BB and statin [...] and bone removal by Dr. Aguero at [facility]. Currently receiving IV antibiotics at [facility] ? Plan: 1. A review of the [...] PA [facility] Cardiology Dept [place], [place] [address] (Wo rk) 03/26/2022 Office Visit Cardiology Vitaliy Nobles MD [facility] CARDIOLOGY [place], [place] [address] (Wo rk) documented as of this encounter Results (ABNORMAL) Basic Metabolic Panel (non-fasting) (10/07/2017 8:48 AM EDT) athologist Signature Glucose Lvl 99 65 - 199 [facility] mg/dL [facility] Comment: Diabetes: >=200 mg/dL plus symp toms BUN 27 (H) 10 - 20 mg/dL [facility] Creatinine 1.07 0.80 - 1.50 mg/dL [facility] Sodium 143 135 - 145 mmol/L [facility] Potassium 4.7 3.5 - 5.0 mmol/L [facility] Comment: Please note: ??Patients with WBC >100,00 0 may have falsely elevated Potassium levels. ??For accurate Potassium quantif ication in these patients send serum separator tube (gold top) for subsequent determinations. ??Contact the Clinical Chemistry Laboratory if there are any qu estions. Chloride 102 98 - 107 mmol/L [facility] CO2 28 22 - 31 mmol/L [facility] Anion Gap 13 5 - 15 mmol/L [facility] Calcium 8.4 (L) 8.5 - 10.5 mg/dL [facility] Estimated GFR >60 >=60 [facility] Comment: The reported eGFR should be multiplied b y 1.2 for patients. The MDRD is not an appropriate measure o f renal function for patients with body mass extremes or in patients with acute kidney failure. http://TicketLabs/DHnkdep http://TicketLabs/DHMCnkf Specimen Anatomical Collection Method Collection Time Receive d Time (Source) Location / / Volume Laterality Blood specimen 10/07/2017 8:48 AM 018 8:50 (specimen) EDT AM EDT Resulting Agency Comment Spec In Lab Danette Maxwell APRN CHEMISTRY ORDERABLES Performing Organization Address City/[facility]/[place] [address] (ABNORMAL) pro-Brain Natriuretic Peptide (10/07/2017 8:48 AM EDT) P athologist Signature ProBNP 1,170 (H) <=125 [facility] pg/mL [facility] Specimen Anatomical Collection Method Collection Time Receive d Time (Source) Location / / Volume Laterality Blood specimen 10/07/2017 8:48 AM 018 8:50 (specimen) EDT AM EDT Resulting Agency Comment Spec In Lab Danette Maxwell APRN CHEMISTRY ORDERABLES Performing Organization Address City/State/[place] [address] documented in this encounter Visit Diagnoses Diagnosis Chronic systolic heart failure S/P CABG x 3 Postsurgical aortocoronary bypass status On amiodarone therapy Atrial fibrillation, unspecified type ASCVD (arteriosclerotic cardiovascular d isease) Unspecified cardiovascular disease documented in this encounter Care Teams Executive Vice President Relationship Specialty Start Date End Date Lovely Vicente MD PCP - General 04/16/[address] [place] [address] documented as of this encounter
--- OUTSIDE RECORDS SUMMARY | 2022-02-16 08:14 | XMS_ITS | Encounter Summary ---
:1945 Author Organization [facility] [place] [address] Care Team Providers Name Role Phone Lovely Vicente MD Primary Care Provider Reason for Visit Reason Onset Date Comments VNA Calls 08/30/2017 Encounter Details Date Type Department Care Team Description 08/30/2017 Telephone [facility]ascular Surgery at [facility] Cora Reid RN VNA Calls [facility] [place] [address] Social History Tobacco Use Types Packs/Day [...] 08/30/2017 11:16 AM EST Caller: Alfonso at [facility] [phone] Reason for call: Changing his wound vac [...] Alfonso who had been in contact with [facility]'s Wound Care Nurse who advised him [...] Liz Poole PA [facility] Cardiology [place], [place] [address] (Wo rk) 03/26/2022 Office Visit Cardiology Vitaliy Nobles MD [facility] ER CARDIOLOGY [place], [place] [address] (Wo rk) documented as of this encounter Visit Diagnoses Not on filedocumented in this encounter Care Teams Files Supervisor Relationship Specialty Start Date End Date Lovely Vicente MD PCP - General 04/16/[address] [place] [address] documented as of this encounter
--- OUTSIDE RECORDS SUMMARY | 2022-02-16 08:14 | XMS_ITS | Encounter Summary ---
:1945 Author Organization [facility] [place] [address] Care Team Providers Name Role Phone Lovely Vicente MD Primary Care Provider Encounter Details Date Type Department Care Team Description 11/29/2017 Laboratory Lab 3L Barbara Wiseman systoli c congestive heart failure; Appointment [facility] ASCVD (ar teriosclerotic cardiovascular disease); Hospital Cardiomyopathy, [place] [address] Social History Tobacco Use Types [...] Liz Poole PA [facility] er Cardiology Dept [place], [place] [address] (Wo rk) 03/26/2022 Office Visit Cardiology Vitaliy Nobles MD [facility] ER CARDIOLOGY [place], [place] [address] (Wo rk) documented as of [...] Signature PT 23.0 (H) 9.4 - 12.5 [facility] LABORATORY INR 2.1 [facility] [...] Organization Address City/State/[place] [address] (ABNORMAL) Basic Metabolic Panel (non-fasting) (11/29/2017 8:22 AM EDT) athologist Signature Glucose Lvl 217 (H) 65 - 199 [facility] mg/dL [facility] Comment: Diabetes: >=200 mg/dL plus symp toms BUN 26 (H) 10 - 20 mg/dL [facility] Creatinine 0.96 0.80 - 1.50 mg/dL [facility]OR[facility] Sodium 137 135 - 145 mmol/L [facility] Potassium 4.1 3.5 - 5.0 mmol/L [facility] Comment: Please note: ??Patients with WBC >100,00 0 may have falsely elevated Potassium levels. ??For accurate Potassium quantif ication in these patients send serum separator tube (gold top) for subsequent determinations. ??Contact the Clinical Chemistry Laboratory if there are any qu estions. Chloride 97 (L) 98 - 107 mmol/L [facility] CO2 23 22 - 31 mmol/L [facility] Anion Gap 17 (H) 5 - 15 mmol/L [facility] Calcium 8.5 8.5 - 10.5 mg/dL [facility] Estimated GFR >60 >=60 [facility] Comment: The reported eGFR should be multiplied b y 1.2 for patients. The MDRD is not an appropriate measure o f renal function for patients with body mass extremes or in patients with acute kidney failure. http://Specialized Tech.Medstro/DHnkdep http://ethority/DHnkf Specimen Anatomical Collection Method Collection Time Receive d Time (Source) Location / / Volume Laterality Blood specimen 11/29/2017 8:22 AM 018 8:29 (specimen) EDT AM EDT Resulting Agency Comment Spec In Lab Danette Maxwell APRN CHEMISTRY ORDERABLES Performing Organization Address City/State/[place] [address] (ABNORMAL) pro-Brain Natriuretic Peptide (11/29/2017 8:22 AM EDT) P athologist Signature ProBNP 1,769 (H) <=125 [facility] pg/mL [facility] Specimen Anatomical Collection Method Collection Time Receive d Time (Source) Location / / Volume Laterality Blood specimen 11/29/2017 8:22 AM 018 8:29 (specimen) EDT AM EDT Resulting Agency Comment Spec In Lab Danette Maxwell APRN CHEMISTRY ORDERABLES Performing Organization Address City/State/ZIP Code Phon e Number [address] Lavender Tube HOLD (11/29/2017 8:14 AM EDT) [facility] gist Method Time Signature Lavender Hold Sample in [facility] lab. [facility] Specimen Anatomical Collection Method Collection Time Receive d Time (Source) Location / / Volume Laterality Blood specimen No Charge / 11/29/2017 8:14 AM 018 8:29 (specimen) Unknown EDT AM EDT Lovely Vicente MD HEMATOLOGY ORDERABLES Performing Organization Address City/[facility]/[place] [address] documented in this encounter Visit Diagnoses Diagnosis Chronic systolic congestive heart failur e Chronic systolic heart failure ASCVD (arteriosclerotic cardiovascular d isease) Unspecified cardiovascular disease Cardiomyopathy, ischemic Other specified forms of chronic ischemi c heart disease documented in this encounter Care Teams Hash Slinger Relationship Specialty Start Date End Date Lovely Vicente MD PCP - General 04/16/15 [address] [place] [address] documented as of this encounter
--- OUTSIDE RECORDS SUMMARY | 2022-02-16 08:14 | XMS_ITS | Encounter Summary ---
:1945 [address] [facility] [place] [address] Care Team Providers Name Role Phone Lovely Vicente MD Primary Care Provider Encounter Details Date Type Department Care Team Description 09/07/2017 Office Visit Endocrinology at [facility] Maria Ines [facility] [place] [address] [place] [address] ENDOCRINOLOGY DEPT [place], [place] [address] Social History Tobacco Use Types [...] PA [facility] Cardiology Dept [place], [place] [address] (Wo rk) 03/26/2022 Office Visit Cardiology Vitaliy Nobles MD [facility] ER CARDIOLOGY [place], [place] [address] (Wo rk) documented as of this encounter Visit Diagnoses Diagnosis Hx of papillary thyroid carcinoma Personal history of malignant neoplasm o f thyroid documented in this encounter Care Teams Stereoptician Relationship Specialty Start Date End Date Lovely Vicente MD PCP - General 04/16/[address] [place] [address] documented as of this encounter
--- OUTSIDE RECORDS SUMMARY | 2022-02-16 08:14 | XMS_ITS | Encounter Summary ---
:1945 Author Organization [facility] [place] [address] Care Team Providers Name Role Phone Lovely Vicente MD Primary Care Provider Reason for Referral Consultation (Routine) - Specialty Diagnoses / Procedures Referred By Contact Refer red To Contact [facility] Diagnoses Atheroembolism of foot, right Delayed surgical wound healing, subsequent encounter Aurelia Rivera PA [address] [facility] [place] [address] Referral ID Status Reason Start Date Expiration Date Visits V isits Requested Authorized [id number] Consult, 09/08/2017 03/07/2018 1 1 Test & Treat Reason for Visit Reason Comments Wound Check My foot hurts Encounter Details Date Type Department Care Team Description 09/07/2017 Office Visit Vascular Surgery at MiguelAurelia PA Atheroembolism of foot, right; [facility] [address] [facility] Delayed surgical wound healing, subseque nt encounter [facility] [place] [id number] [phone] Social History Tobacco Use Types Packs/Day Years [...] at home for VAC dressing changes from [facility]. Since his last visit his right forefoot wound VAC care has improved and [facility] nurses have maintained a better seal with [...] SETUP performed by Manny Mcknight MD at [facility] MAIN OR ??? PRO AMPUTATION FOOT, TRANSMETATARSAL Right 08/09/2017 AMPUTATION, TRANSMETATARSAL (WRVU 12.71) performed by Yonathan Smith MD at [facility] MAIN OR ??? PRO CABG, ARTERIAL, SINGLE N/A 07/07/2017 @CABG, USING ARTERIAL GRAFT;SINGLE ARTERIAL GRAFT (WRVU 33.75) performed by Yuan Retana MD at [facility] MAIN OR ??? PRO CABG, ARTERY-VEIN, TWO N/A 07/07/2017 @CABG, TWO VENOUS GRAFTS & ARTERIAL GRAFT (WRVU 7.93) performed by Yuan Retana MD at [facility] MAIN OR ??? PRO COLONOSCOPY, REMV LESN, SNARE 01/16/2014 COLONOSCOPY, POLYPECTOMY, REMOVAL LESION BY SNARE performed by Nohemi Jaimes MD at [facility] ENDOSCOPY ??? PRO DRESSING CHANGE UNDER ANESTHESIA Right 08/11/2017 (MSURG) DRESSING CHANGE (FOR OTHER THAN IVAN) UNDER ANES. (WRVU 0.86) performed by Lamar Smith MD at [facility] MAIN OR ??? PRO ENDOSCOPY W/VIDEO-ASST VEIN HARVEST, CABG Right 07/07/2017 ENDOSCOPIC HARVEST VEIN(S) FOR CABG (WRVU 0.31) performed by Yuan Retana MD at [facility] MAIN OR ??? PRO THYROIDECTOMY 03/28/2013 THYROIDECTOMY, TOTAL OR COMPLETE performed by Manny Mcknight MD at [facility] OR Social Hx: Social History Substance [...] PA [facility] Cardiology Dept [place], [place] [address] (Wo rk) 03/26/2022 Office Visit Cardiology Vitaliy Nobles MD [facility] CARDIOLOGY [place], [place] [address] (Wo rk) Scheduled Referrals Name Type Priority Associated Diagnoses Order S chedule Referral to Wound Outpatient Referral Routine Atheroembolism o f foot, Ordered: Clinic right 09/08/2017 Delayed surgical wound healing, subsequent encounter documented as of this encounter Visit Diagnoses Diagnosis Atheroembolism of foot, right Delayed surgical wound healing, subseque nt encounter documented in this encounter Care Teams Event Av Operator Relationship Specialty Start Date End Date Lovely Vicente MD PCP - General 04/16/[address] [place] [address] documented as of this encounter
--- OUTSIDE RECORDS SUMMARY | 2022-02-16 08:14 | XMS_ITS | Encounter Summary ---
:1945 Author Organization [place] [address] Care Team Providers Name Role Phone Lovely Vicente MD Primary Care Provider Encounter Details Date Type Department Care Team Description 11/29/2017 Hospital Encounter Vascular Lab at Janett Walter PAD (peripheral [facility], RVT artery [facility]) [place] [id number] Social History Tobacco Use Types Packs/Day Years [...] PA [facility] Cardiology Dept [place], [place] [address] (Wo rk) 03/26/2022 Office Visit Cardiology Vitaliy Nobles MD [facility] CARDIOLOGY [place], [place] [address] (Wo rk) documented as of this encounter Procedures Procedure Name Priority Date/Time Associated Diagnosis Comme nts ARTERIAL DUPLEX LEG Routine 11/29/2017 10:32 AM PAD (periphera l Results for this UNILA EDT artery disease) procedure ar e in the results section. documented in this encounter Results Arterial Duplex Leg, Unil (11/29/2017 10:32 AM EDT) Component Value Ref Test Analysis Performed At [facility] Range Method Time Signature VB Text Department: Vascular Surgery Lab VASCUBASE Report Patient: [id number] (DON HOANG) CPT: 60734 ICD10: I72.4;I73.9 Referring Physician: DANETTE MAXWELL ?? [...] unspecified documented in this encounter Care Teams Clinical Trials Nurse Relationship Specialty Start Date End Date Lovely Vicente MD PCP - General 04/16/[address] [place] [address] documented as of this encounter
--- OUTSIDE RECORDS SUMMARY | 2022-02-16 08:14 | XMS_ITS | Encounter Summary ---
:1945 Author Organization [facility] [place] [address] Care Team Providers Name Role Phone Lovely Vicente MD Primary Care Provider Encounter Details Date Type Department Care Team Description 08/19/2017 Office Visit Vascular Surgery at [place], PAD (peripheral artery [facility] TALENT ACQUISITION SPECIALIST disease) [facility] [address] [place] VASCULAR SURGERY [address] [place] [address] [phone] Social History Tobacco Use Types Packs/Day Years [...] PA [facility] Cardiology [place], [place] [address] (Wo rk) 03/26/2022 Office Visit Cardiology Vitaliy Nobles MD [facility] CARDIOLOGY [place], [place] [address] (Wo rk) documented as of this encounter Visit Diagnoses Diagnosis PAD (peripheral artery disease) Peripheral vascular disease, unspecified documented in this encounter Care Teams Die Maker Electronic Relationship Specialty Start Date End Date Lovely Vicente MD PCP - General 04/16/[address] [place] [address] documented as of this encounter
--- OUTSIDE RECORDS SUMMARY | 2022-02-16 08:14 | XMS_ITS | Encounter Summary ---
:1945 Author Organization [facility] [place] [address] Care Team Providers Name Role Phone Lovely Vicente MD Primary Care Provider Encounter Details Date Type Department Care Team Description 08/25/2017 Telephone Pain Management at Angeles Bueno, [place] [address] Social History Tobacco Use Types Packs/Day [...] Management Center Preauthorization Request Patient: Don Fatima [id number] Fax received from [employer] denying prior authorization for Lidocaine Patches prescribed by Barbra Soares APRN. RX insurance plan: [employer] RX insurance telephone: [phone] Patient Diagnosis: right foot pain secondary to PVD and ischemia ? Previous medications attempted: Tylenol, Tramadol, Dilaudid Authorization/Reference number: [id number] _x_ denied, provider and patient informed _x_ appeal initiated by provider, patient informed Angeles Rodrigez, RN documented in this encounter Plan of Treatment Upcoming Encounters Date Type Specialty Care Team Description 02/19/2022 Laboratory Appointment Lab 02/19/2022 Office Visit Cardiology Liz Poole PA [facility] er Cardiology Dept [place], [place] [address] (Wo rk) 03/26/2022 Office Visit Cardiology Vitaliy Nobles MD [facility] ER CARDIOLOGY [place], [place] [address] (Wo rk) documented as of this encounter Visit Diagnoses Not on filedocumented in this encounter Care Teams Harbor Master Relationship Specialty Start Date End Date Lovely Vicente MD PCP - General 04/16/15 [facility] [address] [place] [address] documented as of this encounter
--- OUTSIDE RECORDS SUMMARY | 2022-02-16 08:14 | XMS_ITS | Encounter Summary ---
:1945 [place] [address] Care Team Providers Name Role Phone Lovely Vicente MD Primary Care Provider Encounter Details Date Type Department Care Team Description 08/26/2017 Hospital Encounter Vascular Lab at [facility], Athero embolism of foot, right; [place], [place] Delayed surgi nusrat wound healing, [place] [phone] Social History Tobacco Use Types Packs/Day Years [...] Poole PA [facility] Cardiology Dept [place], [place] [address] (Wo rk) 03/26/2022 Office Visit Cardiology Vitaliy Nobles MD [facility] CARDIOLOGY [place], [place] [address] (Wo rk) documented as of [...] Component Value Ref Test Analysis Performed At [facility] Range Method Time Signature VB Text Department: Vascular Surgery Lab VASCUBASE Report Patient: [id number] (DON HOANG) CPT: 63073 ICD10: T81.89XA;I75.021 Referring Physician: ELVER BLOOM ?? [...] encounter documented in this encounter Care Teams User Interface Developer Relationship Specialty Start Date End Date Lovely Vicente MD PCP - General 04/16/[address] [place] [address] documented as of this encounter
--- OUTSIDE RECORDS SUMMARY | 2022-02-16 08:14 | XMS_ITS | Encounter Summary ---
:1945 Author Organization [facility] [address] Care Team Providers Name Role Phone Lovely Vicente MD Primary Care Provider Encounter Details Date Type Department Care Team Description 09/06/2017 Orders Only Vascular Surgery at [facility] Ninfa Clark, [facility] [place] [address] Social History Tobacco Use Types Packs/Day [...] [facility] er Cardiology Dept [place], [place] [address] (Wo rk) 03/26/2022 Office Visit Cardiology Vitaliy Nobles MD [facility] ER CARDIOLOGY [place], [place] [address] (Wo rk) documented as of this encounter Visit Diagnoses Not on filedocumented in this encounter Care Teams It Administrator Relationship Specialty Start Date End Date Lovely Vicente MD PCP - General 04/16/[address] [place] [address] documented as of this encounter
--- OUTSIDE RECORDS SUMMARY | 2022-02-16 08:14 | XMS_ITS | Encounter Summary ---
:1945 Author Organization [facility] [place] [address] Care Team Providers Name Role Phone Lovely Vicente MD Primary Care Provider Encounter Details Date Type Department Care Team Description 08/19/2017 Hospital Encounter XRay at [facility] Martha Teague, S/P CABG x [address] [facility] [place] [address] [place] [address] RD [phone] [facility]AL [facility] MEDICINE [place], [place] [address] (Wo rk) Social History [...] PA [facility] Cardiology Dept [place], [place] [address] (Wo rk) 03/26/2022 Office Visit Cardiology Vitaliy Nobles MD [facility] CARDIOLOGY [place], [place] [address] (Wo rk) documented as of [...] at 08/19/2017 10:30 AM Martha S [facility] IMG DX ORDERABLES documented in this encounter Visit Diagnoses Diagnosis S/P CABG x 3 Postsurgical aortocoronary bypass status documented in this encounter Care Teams Manager Specialty Relationship Specialty Start Date End Date Lovely Vicente MD PCP - General 04/16/[address] [place] [address] documented as of this encounter
--- OUTSIDE RECORDS SUMMARY | 2022-02-16 08:14 | XMS_ITS | Encounter Summary ---
:1945 Author Organization [facility] [place] [address] Care Team Providers Name Role Phone Lovely Vicente MD Primary Care Provider Encounter Details Date Type Department Care Team Description 09/16/2017 Hospital [place] [address] Social History Tobacco Use Types Packs/Day [...] Visit Cardiology Liz Poole PA [facility] er Cardiology Dept [place], [place] [address] (Wo rk) 03/26/2022 Office Visit Cardiology Vitaliy Nobles MD [facility] ER CARDIOLOGY [place], [place] [address] (Wo rk) documented as of this encounter Procedures Procedure Name Priority Date/Time Associated Diagnosis Comme [facility] SURGICAL PATHOLOGY Routine 09/16/2017 7:28 AM Res ults for this REPORT EST procedure are i n the results section. documented in this encounter Results Surgical Pathology Report (09/16/2017 7:28 AM EST) Component Value Ref Test Analysis Performed At [facility] Range Method Time Signature Surgical [id number] ? Location: [facility] Pathology RYAN Report The signing pathologist [...] Henrique Flower Verified: ??09/24/2017 ?Pathologist Performed at: ??-[facility] Dept. of Pathology, [place], [place] CLINICAL INFORMATION Specimen Submitted: A - [...] Organization Address City/State/ZIP Code Phon e Number [place], [place] [id number] [place] [address] documented in this encounter Visit Diagnoses Not on filedocumented in this encounter Care Teams Medical Lab Director Relationship Specialty Start Date End Date Lovely Vicente MD PCP - General 04/16/[address] [place] [address] documented as of this encounter
--- OUTSIDE RECORDS SUMMARY | 2022-02-16 08:14 | XMS_ITS | Encounter Summary ---
:1945 Author Organization [facility] [place] [address] Care Team Providers Name Role Phone Lovely Vicente MD Primary Care Provider Reason for Visit Reason Comments Follow-up Encounter Details Date Type Department Care Team Description 08/19/2017 Office Visit Cardiac Surgery at [place], Jock S/P C ABG (coronary [facility] N, artery bypass graft) [facility] [place] CARDIOTHORACIC [address] SURGERY [phone] [place], [place] [address] Social History Tobacco Use Types [...] office. Best personal regards, Yuan Retana MD [phone] documented in this encounter Plan of Treatment Upcoming Encounters Date Type Specialty Care Team Description 02/19/2022 Laboratory Appointment Lab 02/19/2022 Office Visit Cardiology Liz Poole PA [facility] Cardiology Dept [place], [place] [address] (Wo rk) 03/26/2022 Office Visit Cardiology Vitaliy Nobles MD [facility] CARDIOLOGY [place], [place] [address] (Wo rk) documented as of [...] 454 ms MUSE SYSTEM (Bezet) Calculated P Kinsey 20 degrees MUSE SYSTEM Calculated R Kinsey -29 degrees MUSE SYSTEM Calculated T Kinsey 121 degrees MUSE SYSTEM INTERPRETATION Normal sinus rhythm MUSE SYSTEM Inferior infarct (cited on or before 25-JAN-2013) Anterior 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) T wave abnormality, consider lateral ischemia Abnormal ECG When compared with ECG of 06-AUG-2017 12:37, No signif icant change was found Confirmed by MD Luci, Taurus Braun ([id number]) on 08/19/2017 1 0:37:38 PM Specimen Anatomical [...] status documented in this encounter Care Teams Networking Engineer Relationship Specialty Start Date End Date Lovely Vicente MD PCP - General 04/16/[address] [place] [address] documented as of this encounter
--- OUTSIDE RECORDS SUMMARY | 2022-02-16 08:14 | XMS_ITS | Encounter Summary ---
:1945 Author Organization [facility] [place] [address] Care Team Providers Name Role Phone Lovely Vicente MD Primary Care Provider Encounter Details Date Type Department Care Team Description 09/03/2017 Telephone Vascular Surgery at [facility] Ninfa Clark, [place] [address] Social History Tobacco Use Types Packs/Day [...] help with the discomfort of the change. Color Dipper told the VNA that I would ask [...] PA [facility] er Cardiology Dept [place], [place] [address] (Wo rk) 03/26/2022 Office Visit Cardiology Vitaliy Nobles MD [facility] CARDIOLOGY [place], [place] [address] (Wo rk) documented as of this encounter Visit Diagnoses Not on filedocumented in this encounter Care Teams Newsagent Relationship Specialty Start Date End Date Lovely Vicente MD PCP - General 04/16/15 [facility] [address] [place] [address] documented as of this encounter
--- OUTSIDE RECORDS SUMMARY | 2022-02-16 08:14 | XMS_ITS | Encounter Summary ---
:1945 Author Organization [facility] [place] [address] Care Team Providers Name Role Phone Lovely Vicente MD Primary Care Provider Encounter Details Date Type Department Care Team Description 11/29/2017 Office Visit Cardiology at [facility] Annette Maxwell Chronic systolic congestive heart failure; 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 [...] using left greater saphenous vein (done at [facility]), debridement of right foot with wound vac [...] x 80 10/25/2017: right popliteal-pedal bypass at [facility] ? Plan: 1. A review of the [...] PA [facility] Cardiology Dept [place], [place] [address] (Wo rk) 03/26/2022 Office Visit Cardiology Vitaliy Nobles MD [facility] CARDIOLOGY [place], [place] [address] (Wo rk) documented as of this encounter Results Arterial Duplex Leg, Unil (11/29/2017 10:32 AM EDT) Component Value Ref Test Analysis Performed At [facility] Range Method Time Signature VB Text Department: Vascular Surgery Lab VASCUBASE Report Patient: [id number] (GREGORY HOANG) CPT: 36120 ICD10: I72.4;I73.9 Referring Physician: ANNETTE MAXWELL ?? [...] Glucose Lvl 217 (H) 65 - 199 [facility] mg/dL [facility] Comment: Diabetes: >=200 mg/dL plus symp toms BUN 26 (H) 10 - 20 mg/dL [facility] Creatinine 0.96 0.80 - 1.50 mg/dL [facility] Sodium 137 135 - 145 mmol/L [facility] Potassium 4.1 3.5 - 5.0 mmol/L [facility] [...] Gap 17 (H) 5 - 15 mmol/L [facility] Calcium 8.5 8.5 - 10.5 mg/dL [facility] Estimated GFR >60 >=60 [facility] Comment: The reported eGFR should be multiplied b y 1.2 for patients. The MDRD is not an appropriate measure o f renal function for patients with body mass extremes or in patients with acute kidney failure. http://[employer]/DHnkdep http://[employer]/DHMCnkf Specimen Anatomical Collection Method Collection Time Receive d Time (Source) Location / / Volume Laterality Blood specimen 11/29/2017 8:22 AM 018 8:29 (specimen) EDT AM EDT Resulting Agency Comment Spec In Lab Annette Maxwell APRN CHEMISTRY ORDERABLES Performing Organization Address City/State/[place] [address] (ABNORMAL) pro-Brain Natriuretic Peptide (11/29/2017 8:22 AM EDT) athologist Signature ProBNP 1,769 (H) <=125 [facility] pg/mL [facility] Specimen Anatomical Collection Method Collection Time Receive d Time (Source) Location / / Volume Laterality Blood specimen 11/29/2017 8:22 AM 018 8:29 (specimen) EDT AM EDT Resulting Agency Comment Spec In Lab Annette Maxwell LABORATORY TECHNOLOGY TEACHER CHEMISTRY ORDERABLES Performing Organization Address City/State/[place] [address] documented in this encounter Visit Diagnoses Diagnosis Chronic systolic congestive heart failur e Chronic systolic heart failure ASCVD (arteriosclerotic cardiovascular d isease) Unspecified cardiovascular disease Cardiomyopathy, ischemic Other specified forms of chronic ischemi c heart disease PAD (peripheral artery disease) Peripheral vascular disease, unspecified documented in this encounter Care Teams Earring Maker Relationship Specialty Start Date End Date Lovely Vicente MD PCP - General 04/16/[address] [place] [address] documented as of this encounter
--- OUTSIDE RECORDS SUMMARY | 2022-02-16 08:14 | XMS_ITS | Encounter Summary ---
:1945 Author Organization [facility] [place] [address] Care Team Providers Name Role Phone Lovely Vicente MD Primary Care Provider Reason for Visit Reason Onset Date Comments Other 11/11/2017 Please call [facility] Encounter Details Date Type Department Care Team Description 11/11/2017 Telephone Cardiology at [facility] Danette Maxwell, Other (Please call [facility] REPAIRER HELPER [facility] [place] [address] CARDIOLOGY [place], [place] [address] (Wo rk) Social History Tobacco [...] Liz Poole PA [facility] Dr Cardiology Dept [place], [place] [address] (Wo rk) 03/26/2022 Office Visit Cardiology Vitaliy Nobles MD [facility] CARDIOLOGY [place], [place] [address] (Wo rk) documented as of this encounter Visit Diagnoses Not on filedocumented in this encounter Care Teams Vp Account Director Relationship Specialty Start Date End Date Lovely Vicente MD PCP - General 04/16/15 [facility] [address] [place] [address] documented as of this encounter
--- OUTSIDE RECORDS SUMMARY | 2022-02-16 08:14 | XMS_ITS | Encounter Summary ---
:1945 Author Organization [facility] [place] [address] Care Team Providers Name Role Phone Lovely Vicente MD Primary Care Provider Encounter Details Date Type Department Care Team Description 10/05/2017 Unscheduled Cardiology at [facility] RONNIE Sin PATIENT NOT SEEN Encounter [facility] Tamiko Martinez MD [facility] [address] CARDIOLOGY DEPT [phone] [place] [address] Social History Tobacco Use Types Packs/Day Years [...] PA [facility] Cardiology Dept [place], [place] [address] (Wo rk) 03/26/2022 Office Visit Cardiology Vitaliy Nobles MD [facility] ER CARDIOLOGY [place], [place] [address] (Wo rk) documented as of this encounter Visit Diagnoses Diagnosis DH PATIENT NOT SEEN documented in this encounter Care Teams Laundry Route Driver Relationship Specialty Start Date End Date Lovely Vicente MD PCP - General 04/16/[address] [place] [address] documented as of this encounter
--- OUTSIDE RECORDS SUMMARY | 2022-02-16 08:14 | XMS_ITS | Encounter Summary ---
:1945 Author Organization [facility] [place] [address] Care Team Providers Name Role Phone Lovely Vicente MD Primary Care Provider Encounter Details Date Type Department Care Team Description 08/30/2017 [facility] [address] [place], [place] VASCULAR SURGERY [address] [place] [address] [phone] Social History Tobacco Use Types Packs/Day Years [...] Smith MD - 08/30/2017 2:00 PM EST [facility] staff: Patient returns. He is [...] Liz Poole PA [facility] Medical [facility] er Cardiology Dept [place], [place] [address] (Wo rk) 03/26/2022 Office Visit Cardiology Vitaliy Nobles MD [facility] ER CARDIOLOGY [place], [place] [address] (Wo rk) documented as of this encounter Visit Diagnoses Diagnosis Critical lower limb ischemia Unspecified circulatory system disorder documented in this encounter Care Teams Gastroenterology Technician Relationship Specialty Start Date End Date Lovely Vicente MD PCP - General 04/16/[address] [place] [address] documented as of this encounter
--- OUTSIDE RECORDS SUMMARY | 2022-02-16 08:14 | XMS_ITS | Encounter Summary ---
:1945 Author Organization [facility] [place] [address] Care Team Providers Name Role Phone Lovely Vicente MD Primary Care Provider Encounter Details Date Type Department Care Team Description 10/07/2017 Laboratory Appointment Lab 3L [facility] [place] [address] Social History Tobacco Use Types Packs/Day Years [...] [facility] er Cardiology Dept [place], [place] [address] (Wo rk) 03/26/2022 Office Visit Cardiology Vitaliy Nobles MD [facility] ER CARDIOLOGY [place], [place] [address] (Wo rk) documented as of [...] Signature Glucose Lvl 99 65 - 199 [facility] mg/dL [facility] Comment: Diabetes: >=200 mg/dL plus symp toms BUN 27 (H) 10 - 20 mg/dL [facility] Creatinine 1.07 0.80 - 1.50 mg/dL [facility] Sodium 143 135 - 145 mmol/L [facility] Potassium 4.7 3.5 - 5.0 mmol/L [facility] Comment: Please note: ??Patients with WBC >100,00 0 may have falsely elevated Potassium levels. ??For accurate Potassium quantif ication in these patients send serum separator tube (gold top) for subsequent determinations. ??Contact the Clinical Chemistry Laboratory if there are any qu estions. Chloride 102 98 - 107 mmol/L [facility] CO2 28 22 - 31 mmol/L [facility] Anion Gap 13 5 - 15 mmol/L [facility] Calcium 8.4 (L) 8.5 - 10.5 mg/dL [facility] Estimated GFR >60 >=60 [facility] Comment: The reported eGFR should be multiplied b y 1.2 for patients. The MDRD is not an appropriate measure o f renal function for patients with body mass extremes or in patients with acute kidney failure. http://[email or web address]/DHnkdep [email or web address]://[employer].Beanup/DHMCnkf Specimen Anatomical Collection Method Collection Time Receive d Time (Source) Location / / Volume Laterality Blood specimen 10/07/2017 8:48 AM 018 8:50 (specimen) EDT AM EDT Resulting Agency Comment Spec In Lab Danette Maxwell APRN CHEMISTRY ORDERABLES Performing Organization Address City/State/ZIP [place] [address] (ABNORMAL) pro-Brain Natriuretic Peptide (10/07/2017 8:48 AM EDT) P athologist Signature ProBNP 1,170 (H) <=125 [facility] pg/mL [facility] Specimen Anatomical Collection Method Collection Time Receive d Time (Source) Location / / Volume Laterality Blood specimen 10/07/2017 8:48 AM 018 8:50 (specimen) EDT AM EDT Resulting Agency Comment Spec In Lab Danette Gomes [place] CERTIFIED DIALYSIS TECHNICIAN CHEMISTRY ORDERABLES Performing Organization Address City/State/ZIP [place] [address] documented in this encounter Visit Diagnoses Diagnosis Chronic systolic heart failure documented in this encounter Care Teams Salesperson Meats Relationship Specialty Start Date End Date Lovely Vicente MD PCP - General 04/16/[address] [place] [address] documented as of this encounter
--- OUTSIDE RECORDS SUMMARY | 2022-02-16 08:14 | XMS_ITS | Encounter Summary ---
:1945 Author Organization [place] [address] Care Team Providers Name Role Phone Lovely Vicente MD Primary Care Provider Reason for Referral Diagnostic Test (Routine) - Closed Specialty Diagnoses / Procedures Referred By Contact Refer red To Contact Cardiology Diagnoses Ischemic cardiomyopathy Acute on chronic systolic congestive heart failure Danette Maxwell APRN [facility] Non-Inv Card Lab Procedures Echocardiogram Transthoracic(Leb) [facility] [place] [address] [place] [address] Referral ID Status Reason Start Date Expiration Date Visits V isits Requested Authorized [id number] Closed Specialty 08/30/2017 08/30/2018 1 1 Service Requested Encounter Details Date Type Department Care Team Description 08/26/2017 Office Visit Cardiology at [facility] Danette Maxwell Ischemic cardiomyopathy; [facility] STACIE Gomes Acute on chronic systolic congestive hea rt failure ; Drive [facility] ASCVD (arteriosclerotic card iovascular disease); [place], [place] PAF (paroxysmal atrial fibrillation); [id number] CARDIOLOGY PAD (peripheral artery disease) [phone] [place], [place] [address] Social History Tobacco Use Types Packs/Day Years [...] painful and 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 [...] Poole PA [facility] er Dr Cardiology Dept [place], [place] [address] (Wo rk) 03/26/2022 Office Visit Cardiology Vitaliy Nobles MD [facility] CARDIOLOGY [place], [place] [address] (Wo rk) documented as of this encounter Results ECHOCARDIOGRAM COMPLETE W CONTRAST (10/07/2017 10:23 AM EDT) athologist Signature EF 45 [facility] Specimen (Source) Anatomical Location Collection Method / Collectio n Time Received Time / Laterality Volume 10/07/2017 Narrative [facility] - 10/07/2017 11:13 AM ED T Procedure: ?Transthoracic Echocardiogram Patient: ?NATALYA Mccollum ? (Age): 1945(72y) Med Rec#: ? [id number] ?Sex: ?M ? Site Loc: ? [facility] ?Ht / Wt: ??173(cm)/82(kg) Pt. Loc: ?Echo Lab ?BSA: ?1.96 Study Date: ?? 10/07/2017 ?Pt. Type: Outpatient Tape: ? Referring: Danette Maxwell Reading: Iker Cuevas ([id number]) Reading Coach: Yonathan Bocanegra Diagnosis: *ICD-10-PCS Ischemic cardiomyopathy (I2 [...] E-wave Vmax ?1.2 ?m/sec ? MV deceleration [id number] ?msec ? MV A-wave Vmax ?1 ?m/sec [...] ? Mid-Inferior ?Hypokinetic ? Mid-Inferoseptal ?Hypokinetic ? [place]-Septal ? Akinetic ? [place]-Anterior ? Hypokinetic ? [place]-Lateral ?Hypokinetic ? [place]-Inferior ? Hypokinetic ? [place]-Tip ?Akinetic ? This report has been electronically sign ed by: _ Iker Cuevas M.D. ? 10/07/2017 11:12:34 Images reviewed and interpretation verif ied [facility] Cardiac Ultrasound Laboratory Procedure Note Iker Cuevas MD - 10/07/2017Formatti ng of this note might be different from the original. Procedure: Transthoracic Echocardiogram Patient: NATALYA MCBRIDE(Age): [birth year]72y) Med Rec#: [id number] Sex: M Site Loc: [facility] Ht / Wt: 173(cm)/82(kg) Pt. Loc: Echo Lab BSA: 1.96 Study Date: 10/07/2017 Pt. Type: Outpati ent Tape: Referring: Danette Maxwell Reading: Iker Cuevas ([id number]) Reading Coach: Yonathan Bocanegra Diagnosis: *ICD-10-PCS Ischemic cardiomyopathy (I2 [...] MV E-wave Vmax 1.2 m/sec MV deceleration [id number] msec MV A-wave Vmax 1 m/sec MV [...] Akinetic Mid-Posterolateral Hypokinetic Mid-Inferior Hypokinetic Mid-Inferoseptal Hypokinetic [place]-Septal Akinetic [place]-Anterior Hypokinetic [place]-Lateral Hypokinetic [place]-Inferior Hypokinetic [place]-Tip Akinetic This report has been electronically sign ed by: _ Iker Cuevas M.D. 10/07/2017 11:12 :34 Images reviewed and interpretation elvie hwang [facility] Cardiac Ultrasound Laboratory Danette Maxwell APRN ECHO ORDERABLES Performing Organization Address City/State/ZIP Code Phon e Number [facility] Basic Metabolic Panel (non-fasting) (08/26/2017 2:00 PM EST) P athologist Signature Glucose Lvl 98 65 - 199 [facility] mg/dL [facility] Comment: Diabetes: >=200 mg/dL plus symp toms BUN 20 10 - 20 mg/dL [facility] Creatinine 1.17 0.80 - 1.50 mg/dL [facility] Sodium 140 135 - 145 mmol/L [facility] Potassium 4.8 3.5 - 5.0 mmol/L [facility] [...] 15 mmol/L [facility] Calcium 9.1 8.5 - 10.5 mg/dL [facility] Estimated GFR >60 >=60 [facility] Comment: The reported eGFR should be multiplied b y 1.2 for patients. The MDRD is not an appropriate measure o f renal function for patients with body mass extremes or in patients with acute kidney failure. http://[employer]/DHnkdep http://[employer]/DHMCnkf Specimen Anatomical Collection Method Collection Time Receive d Time (Source) Location / / Volume Laterality Blood specimen 08/26/2017 2:00 PM 018 2:15 (specimen) EST PM EST Resulting Agency Comment Spec In Lab Danette Eliseo Hans QUINONES CHEMISTRY ORDERABLES Performing Organization Address City/State/[place] [address] (ABNORMAL) pro-Brain Natriuretic Peptide (08/26/2017 2:00 PM EST) P athologist Signature ProBNP 2,373 (H) <=125 [facility] pg/mL [facility] Specimen Anatomical Collection Method Collection Time Receive d Time (Source) Location / / Volume Laterality Blood specimen 08/26/2017 2:00 PM 018 2:15 (specimen) EST PM EST Resulting Agency Comment Spec In Lab Danette Gomes Hans QUINONES CHEMISTRY ORDERABLES Performing Organization Address City/State/[place] [address] documented in this encounter [...] failure documented in this encounter Care Teams Structural Iron Erector Relationship Specialty Start Date End Date Lovely Vicente MD PCP - General 04/16/[address] [place] [address] documented as of this encounter
--- OUTSIDE RECORDS SUMMARY | 2022-02-16 08:14 | XMS_ITS | Encounter Summary ---
:1945 Author Organization [facility] [place] [address] Care Team Providers Name Role Phone Lovely Vicente MD Primary Care Provider Reason for Visit Reason Comments Follow-up I'm having trouble with the VAC Encounter Details Date Type Department Care Team Description 08/26/2017 Office Visit Vascular Surgery at [facility], [place]PHANIE Mercado Atheroembolism of foot, right; [facility] [address] Delayed surgical wound healing, initial encounter; [facility] VASCULAR SURG YEHUDA Acute on chronic systolic congestive hea rt failure ; [place], [place] [address] [phone] Social History Tobacco Use Types Packs/Day Years [...] home and into the care of the [facility]. However, since [facility] he has had some difficulty with continuation [...] SETUP performed by Manny Mcknight MD at [facility] MAIN OR ??? PRO AMPUTATION FOOT, TRANSMETATARSAL Right 08/09/2017 AMPUTATION, TRANSMETATARSAL (WRVU 12.71) performed by Yonathan Smith MD at [facility] MAIN OR ??? PRO CABG, ARTERIAL, SINGLE N/A 07/07/2017 @CABG, USING ARTERIAL GRAFT;SINGLE ARTERIAL GRAFT (WRVU 33.75) performed by Yuan Retana MD at [facility] MAIN OR ??? PRO CABG, ARTERY-VEIN, TWO N/A 07/07/2017 @CABG, TWO VENOUS GRAFTS & ARTERIAL GRAFT (WRVU 7.93) performed by Yuan Retana MD at [facility] MAIN OR ??? PRO COLONOSCOPY, REMV LESN, SNARE 01/16/2014 COLONOSCOPY, POLYPECTOMY, REMOVAL LESION BY SNARE performed by Nohemi Jaimes MD at [facility] ENDOSCOPY ??? PRO DRESSING CHANGE UNDER ANESTHESIA Right 08/11/2017 (MSURG) DRESSING CHANGE (FOR OTHER THAN IVAN) UNDER ANES. (WRVU 0.86) performed by Lamar Smith MD at [facility] MAIN OR ??? PRO ENDOSCOPY W/VIDEO-ASST VEIN HARVEST, CABG Right 07/07/2017 ENDOSCOPIC HARVEST VEIN(S) FOR CABG (WRVU 0.31) performed by Yuan Retana MD at [facility] MAIN OR ??? PRO THYROIDECTOMY 03/28/2013 THYROIDECTOMY, TOTAL OR COMPLETE performed by Manny Mcknight MD at [facility] MAIN OR Social Hx: Social History [...] Liz Poole PA [facility] Card[place], [place] [address] (Wo rk) 03/26/2022 Office Visit Cardiology Vitaliy Nobles MD [facility] CARDIOLOGY [place], [place] [address] (Wo rk) documented as of [...] Component Value Ref Test Analysis Performed At [facility] gist Range Method Time Signature VB Text Department: Vascular Surgery Lab VASCUBASE Report Patient: [id number] (GREGORY HOANG) CPT: 60480 ICD10: T81.89XA;I75.021 Referring Physician: ARIK BLOOM ?? [...] Signature Glucose Lvl 98 65 - 199 [facility] mg/dL [facility] Comment: Diabetes: >=200 mg/dL plus symp toms BUN 20 10 - 20 mg/dL [facility] Creatinine 1.17 0.80 - 1.50 mg/dL [facility] Sodium 140 135 - 145 mmol/L [facility] Potassium 4.8 3.5 - 5.0 mmol/L [facility] Comment: Please note: ??Patients with WBC >100,00 0 may have falsely elevated Potassium levels. ??For accurate Potassium quantif ication in these patients send serum separator tube (gold top) for subsequent determinations. ??Contact the Clinical Chemistry Laboratory if there are any qu estions. Chloride 98 98 - 107 mmol/L [facility] CO2 28 22 - 31 mmol/L [facility] Anion Gap 14 5 - 15 mmol/L [facility] Calcium 9.1 8.5 - 10.5 mg/dL [facility] Estimated GFR >60 >=60 [facility] Comment: The reported eGFR should be multiplied b y 1.2 for patients. The MDRD is not an appropriate measure o f renal function for patients with body mass extremes or in patients with acute kidney failure. http://[employer]Klip/DHnkdep http://[employer]/DHMCnkf Specimen Anatomical Collection Method Collection Time Receive d Time (Source) Location / / Volume Laterality Blood specimen 08/26/2017 2:00 PM 018 2:15 (specimen) EST PM EST Resulting Agency Comment Spec In Lab Danette Maxwell STACIE CHEMISTRY ORDERABLES Performing Organization Address City/State/ZIP Code Phon e Number [address] (ABNORMAL) pro-Brain Natriuretic Peptide (08/26/2017 2:00 PM EST) P athologist Signature ProBNP 2,373 (H) <=125 [facility] pg/mL [facility] Specimen Anatomical Collection Method Collection Time Receive d Time (Source) Location / / Volume Laterality Blood specimen 08/26/2017 2:00 PM 018 2:15 (specimen) EST PM EST Resulting Agency Comment Spec In Lab Danette Maxwell STACIE CHEMISTRY ORDERABLES Performing Organization Address City/[facility]/ZIP [place] [address] documented in this encounter Visit Diagnoses Diagnosis Atheroembolism of foot, right Delayed surgical wound healing, initial encounter Acute on chronic systolic congestive hea rt failure Acute on chronic systolic heart failure Ischemic cardiomyopathy Other specified forms of chronic ischemi c heart disease documented in this encounter Care Teams Director Of Securities And Real Estate Relationship Specialty Start Date End Date Lovely Vicente MD PCP - General 04/16/[address] [place] [address] documented as of this encounter
--- OUTSIDE RECORDS SUMMARY | 2022-02-16 08:15 | XMS_ITS | Encounter Summary ---
:1945 [place] [address] Care Team Providers Name Role Phone Lovely Vicente MD Primary Care Provider Reason for Visit Auth/Cert Specialty Diagnoses / Procedures Referred By Contact Refer red To Contact Diagnoses Critical lower limb ischemia CELLULITIS RT FOOT Procedures EMERGENCY Referral ID Status Reason Start Date Expiration Date Visits Requ ested Visits Authorized [id number] 1 1 Encounter Details Date Type Department Care Team Description 08/06/2017 - Hospital Encounter 5 Yonathan Oneill lower limb ischemia; 08/16/2017 Su Flores MD Ischemic foot Hospital [facility] [address] [place] [phone] Social History Tobacco Use Types Packs/Day Years [...] 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 Patient [...] Dorsalis Pedis (Ankle) Artery ?132 ? 0.94 ??Gosper-Biphasic ? Posterior Tibial (Ankle) Artery ??154 ? 1.10 ??Gosper-Biphasic ? Fourth Toe ? 67 ?0.48 ?? [...] the foot. Discharge Conditions/Prognosis: Good Discharge to: [facility] Rehab Discharge Medications: Your Medications [...] For any problems or questions please call [phone] ZELDA Smith, formation testing operator Nurse Clinician For issues on weeknights after 5pm and weekends please call [phone] and ask for the Vascular Fellow director of in service education. General Instructions None Future Appointments and Orders Future Appointments Provider Department Dept Phone 08/26/2017 4:00 PM Aurelia Rivera PA V[facility] Surgery [facility] [place] [phone] 09/07/2017 3:00 PM LAB, THREE L Lab 3L [facility] [phone] 09/07/2017 4:00 PM Luz Prescott MD Endocrinology at [place] [phone] 09/09/2017 8:00 AM Barbra Soares APRN Pain Management [facility] [place] [phone] Please bring a list of your current [...] For any problems or questions please call [phone] ZELDA Smith, formation testing operator Nurse Clinician For issues on weeknights after 5pm and weekends please call [phone] and ask for the Vascular Fellow director of in service education. documented in this encounter Medications at Time [...] of Care Management Discharge Note Patient Destination: [facility] [address] [place] [address] Transportation: with (at bedside) Time of Discharge: by 12 noon Level of Care: swing Patient Aware: yes Family Notified: yes Md to call report to: Yissel Quintero CRYSTAL FINISHER already called RN to call report to: [phone] Shirin Wolf Office of Care Management Pager [phone] Shirin Wolf RN - 08/16/2017 10:50 AM EST [facility] has offered pt swing bed. Pt and accept bed. will transport via car. CRYSTAL FINISHER Yissel Quintero aware; d/c paperwork will be completed by 12 noon. [facility] requests pt arrival by 1400 today; CRYSTAL FINISHER, RN, and family aware. CRYSTAL FINISHER called [facility] and was told that they prefer pt to arrive with wound vac dressing applied but clamped. CRYSTAL FINISHER applied new wound vac dressing. RN has [facility] number to call report. PASSR completed; CRYSTAL FINISHER paged to request provider signature in highlighted space. Indigo from [facility] notified via email that home wound vac now cancelled; [facility] has picked up from room and order cancelled. Packet started and provided to rn community. Medicare important message explained to patient, patient signed. Copy provided to patient and signature page to OCM for inclusion in pt EMR. Radha Georges - 08/16/2017 10:34 AM EST Office of Care Management/Edge Polisher Patient Name: Gregory Hoang : 1945 Patient has been offered a swing bed at [facility]. The patient will be transported by private transportation. No MD to MD report necessary Please call Nursing Report to [phone], ask for literacy specialist. Info to accompany patient: Narcotic Prescriptions Copies of Medication Administration Records and IV sheets for past 10 days. Plan: Edge Polisher will be available to the patient and Banquet Server-RN and/or Auto Motor Mechanic for further assistance. Patient will be discharged to: [place] [phone] Radha Powers, Edge Polisher Mira Black, VAMSI - 08/15/2017 10:05 PM EST [address] Flores to ask if he wanted to hold metoprolol dose. BP 95/58. OK to hold this dose Courtney Brito - 08/15/2017 3:26 PM EST Office of Care Management(OCM)/Edge Polisher(RS)/ D/C Planning re : Patient is medically ready for d/c today. RS has been in contact with [facility] to see if they could offer a bed. [facility] is still reviewing the case and need their MD to review chart prior to accepting or declining. OCM team needs to check in with [facility] tomorrow to check on status. 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 Vac in place. Rehab referrals ongoing. Can ambulate in hallway. Change VAC at bedside today. Naty Colindres RN - 08/14/2017 1:33 PM EST Patient Name: Gregory Hoang Patient Age: 72 y.o. Birthdate: 1945 Admit date: 08/06/2017 Attending Physician: Yonathan Smith MD We want him to go to a place for intensive therapy and not at a detention where he will be just sitting there and not getting any therapy. . Contacted by direct care RN, who said that patient and would like information about patient's referral to: [facility] PHONE: [phone] FAX: [phone] CM spoke with RS who said that [...] would be accepted to acute rehab at [facility] as Dr. Smith had recommended . [...] rehab. Await recommendations from PT. Covering pager #[phone]. 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 Director Of Premium Seat Sales Kaitlin Saha, RN Pager #[phone] Payam Rosales - 08/13/2017 2:37 PM EST Melter Clerk Encounter Note Patient Name: Gregory Hoang : [id number] MR#: [id number] Admit Date: 08/06/2017 1:41 PM Hospital Day 7 days Narrative: Visited to introduce and assess acceptance of Melter Clerk services. Pt was awake, alert, oriented and in chair and family was there. Assessment:Patient coping positively with stresses of illness/hospitalization at this time. Pt says that he is hoping to get better and his family was there. Pt says that he has family care and supportand taking one day at time. Intervention and Outcome: Provided emotional support and encouraging presence. 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 A letter describing our affiliations was reviewed with them and theywere educated about their right to choose where referrals are placed. Patient requests referral to [facility]. PHONE: [phone] FAX: [phone]. And Home NPWT (Negative Pressure Wound Therapy) aka wound vac device made available to pt. Serial # confirmed. Reviewed [facility] Proof of Delivery/Assignment of Benefits Statement(POD/AOB) Form w patient or authorized agent signing on behalf of patient. Copy of POD/AOB provided to pt and other copy faxed to [employer] @ fax# [phone] Expected date of discharge: 08/12/2017. 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 Address: [address] [place] [address] [place] [address] (home) Mobile: Telephone Information: Referring Provider: No [...] SETUP performed by Manny Mcknight MD at [facility] MAIN OR ??? PRO CABG, ARTERIAL, SINGLE N/A 07/07/2017 @CABG, USING ARTERIAL GRAFT;SINGLE ARTERIAL GRAFT (WRVU 33.75) performed by Yuan Retana MD at [facility] MAIN OR ??? PRO CABG, ARTERY-VEIN, TWO N/A 07/07/2017 @CABG, TWO VENOUS GRAFTS & ARTERIAL GRAFT (WRVU 7.93) performed by Yuan Retana MD at [facility] MAIN OR ??? PRO COLONOSCOPY, REMV LESN, SNARE 01/16/2014 COLONOSCOPY, POLYPECTOMY, REMOVAL LESION BY SNARE performed by Nohemi Jaimes MD at [facility] ENDOSCOPY ??? PRO ENDOSCOPY W/VIDEO-ASST VEIN HARVEST, CABG Right 07/07/2017 ENDOSCOPIC HARVEST VEIN(S) FOR CABG (WRVU 0.31) performed by Yuan Retana MD at [facility] MAIN OR ??? 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 Heparin gtt continues to run. Pt [...] of : 1945 AGE 72 y.o. Address: [address] [place] [address] [place] [address] (home) Mobile: Telephone Information: Referring Provider: No [...] SETUP performed by Manny Mcknight MD at [facility] MAIN OR ??? PRO CABG, ARTERIAL, SINGLE N/A 07/07/2017 @CABG, USING ARTERIAL GRAFT;SINGLE ARTERIAL GRAFT (WRVU 33.75) performed by Yuan Retana MD at [facility] MAIN OR ??? PRO CABG, ARTERY-VEIN, TWO N/A 07/07/2017 @CABG, TWO VENOUS GRAFTS & ARTERIAL GRAFT (WRVU 7.93) performed by Yuan Retana MD at [facility] MAIN OR ??? PRO COLONOSCOPY, REMV LESN, SNARE 01/16/2014 COLONOSCOPY, POLYPECTOMY, REMOVAL LESION BY SNARE performed by Nohemi Jaimes MD at [facility] ENDOSCOPY ??? PRO ENDOSCOPY W/VIDEO-ASST VEIN HARVEST, CABG Right 07/07/2017 ENDOSCOPIC HARVEST VEIN(S) FOR CABG (WRVU 0.31) performed by Yuan Retana MD at [facility] MAIN OR ??? PRO THYROIDECTOMY 03/28/2013 THYROIDECTOMY, TOTAL OR COMPLETE performed by Manny Mcknight MD at [facility] MAIN OR Date/Procedure Meds given/comments No [...] by Other route 4 times daily. 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 Unsuccessful draw attempt, another surgical dressing maker will come [facility] to collect blood for PTT test. 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 Vascular resident director of in service education and will forward result to the team prior to rounds. Melba Cruz RN - 08/08/2017 4:06 AM EST Fall Event Note Gregory Hoang [id number] 08/08/2017 Time of Fall: 0400 Was the [...] Starkey MD - 08/07/2017 4:32 PM EST 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 Patient [...] SETUP performed by Manny Mcknight MD at [facility] MAIN OR ??? PRO CABG, ARTERIAL, SINGLE N/A 07/07/2017 @CABG, USING ARTERIAL GRAFT;SINGLE ARTERIAL GRAFT (WRVU 33.75) performed by Yuan Retana MD at [facility] MAIN OR ??? PRO CABG, ARTERY-VEIN, TWO N/A 07/07/2017 @CABG, TWO VENOUS GRAFTS & ARTERIAL GRAFT (WRVU 7.93) performed by Yuan Retana MD at [facility] MAIN OR ??? PRO COLONOSCOPY, REMV LESN, SNARE 01/16/2014 COLONOSCOPY, POLYPECTOMY, REMOVAL LESION BY SNARE performed by Nohemi aJimes MD at [facility] ENDOSCOPY ??? PRO ENDOSCOPY W/VIDEO-ASST VEIN HARVEST, CABG Right 07/07/2017 ENDOSCOPIC HARVEST VEIN(S) FOR CABG (WRVU 0.31) performed by Yuan Retana MD at [facility] MAIN OR ??? PRO THYROIDECTOMY 03/28/2013 THYROIDECTOMY, TOTAL OR COMPLETE performed by Manny Mcknight MD at [facility] MAIN OR Functional Status/Social Hx: Quit [...] left blue toes with CTA showing R CATALYST UNIT OPERATOR pseudoaneurysm (now thrombosed) and occluded ATs bilaterally. [...] 2.5x80 5. Completion RLE angiogram 6. L CATALYST UNIT OPERATOR angiogram 7. 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 - L CATALYST UNIT OPERATOR angriogram demonstrated: High femoral bifurcation over the proximal half of the femoral head. L CATALYST UNIT OPERATOR access in the distal L CATALYST UNIT OPERATOR. - Closure device: Mynx Technical Procedure: The [...] for a 45cm 5F Destination. V18 and Sebastian and QuickCross catheters were used to select [...] 5F. A stationed picture of the L CATALYST UNIT OPERATOR was performed as the patient was noted to have a very high bifurcation. Access appeared in the distal R CATALYST UNIT OPERATOR. Closure and sheath removal was performed with [...] PM EST 1440 report called to 5 grover nurse Tessa AGUSTIN documented in this encounter [...] with pt and pt's spouse. Discharge to [facility]. Goal: Individualization & Mutuality Outcome: [...] sit/sit to supine -- Bed Mobility Goal, Haywood Level independent -- Bed Mobility Goal, Date [...] days -- Transfer Training Goal, Activity Type tse-jx-fpdaj/enfds-lu-ecx -- Transfer Train Goal, Haywood Level conditional independence -- Transfer Train Goal, [...] call cabello within reach, Hourly rounding by RN/FIELD EXAMINER. Bed alarm / Chair alarm. Patient-specific fall [...] Smith MD - 08/15/2017 6:[address] [facility] Operative Note Patient Name: Gregory Hoang : [id number] MR#: [id number] Case Date: 08/09/2017 Surgeon: Surgeon(s) and Role: [...] 2.5x80 5. Completion RLE angiogram 6. L CATALYST UNIT OPERATOR angiogram 7. Mynx closure Precautions/Restrictions: fall, sternal [...] feet/ bed -> bathroom). Anticipated Discharge Disposition: correction facility, other (see comments) (or swing bed) Pager: [phone] BASSAM ELIAS, PT 08/14/2017 Inpatient Physical Therapy [...] to Achieve by discharge Gait Training Goal, Haywood Level conditional independence;set up required Gait Training [...] these facilities over the weekend except for [facility]. CM spoke with [facility] CM Drea Sandhu, VAMSI who said that they do not anticipate any beds over the weekend. Reviewed with patient/ that they need to be aware that patient will need to take the first bed offered at the facilities that they make referrals to. Their choices are: 1- [facility] PHONE: [phone] FAX: [phone] 2- [facility] ([facility]) [address] [place] [address] 3- [facility]) [address] [place] [address] I have discussed Medicare/Private Insurance [...] RS/CM on Wednesday to follow-up. Covering pager #[phone] for today. Plan of Care - Henrique [...] with additional findings of pseudoaneurysm on R CATALYST 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 Was [...] an outpatient once discharged. Have patient call [phone] to set up an appointment. Follow-up: Dermatology will sign-off for now. Please do not hesitate to contact us if you have any questions orconcerns. Impression and Recommendations discussed with primary team on 08/13/2017. Karo Henderson MD Resident in Dermatology Section of Dermatology, Department of Surgery [facility] Pager [phone] Patient seen and evaluated with staff Immigration Officer: Halima Cordero MD Section of Dermatology [facility] Level of Resident Supervision: Direct Supervision [...] 2.5x80 5. Completion RLE angiogram 6. L CATALYST UNIT OPERATOR angiogram 7. Mynx closure Active Non-Hospital Problems [...] home with home health ([facility] PT&OT) Pager: [phone] YASIR TELLO OT 08/12/2017 Occupational Therapy Rehabilitation [...] 2.5x80 5. Completion RLE angiogram 6. L CATALYST UNIT OPERATOR angiogram 7. Mynx closure Past Medical History: [...] with 24/7 assistance and maximal services) Pager: [phone] NICHOLAS MORA, PT 08/12/2017 Physical Therapy Rehabilitation [...] sit/sit to supine -- Bed Mobility Goal, Haywood Level independent -- Bed Mobility Goal, Outcome Achieved -- goal ongoing Goal: Gait Training Goal Stand Alone Therapy Goal Outcome: Ongoing (Interventions Implemented as Appropriate) 08/11/17 1310 08/12/17 1510 Gait Training Goal Gait Training Goal, Date Established 08/11/17 -- Gait Training Goal, Time to Achieve 5 - 7 days -- Gait Training Goal, Haywood Level conditional independence -- Gait Training Goal, [...] days -- Transfer Training Goal, Activity Type qwi-dg-ubxqw/oskcc-qo-xii -- Transfer Train Goal, Haywood Level conditional independence -- Transfer Training Goal, [...] Smith MD - 08/11/2017 2:[address] 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 Completion RLE angiogram 6. L CATALYST UNIT OPERATOR angiogram 7. Mynx closure He is very [...] Anticipated Discharge Disposition: inpatient rehabilitation facility Pager: [phone] LAWRENCE GONZALEZ, PT 08/11/2017 Physical Therapy Rehabilitation [...] to sit/sit to supine Bed Mobility Goal, Haywood Level independent Goal: Gait Training Goal Stand Alone Therapy Goal Outcome: Ongoing (Interventions Implemented as Appropriate) 08/11/17 1310 Gait Training Goal Gait Training Goal, Date Established 08/11/17 Gait Training Goal, Time to Achieve 5 - 7 days Gait Training Goal, Haywood Level conditional independence Gait Training Goal, Assist [...] 7 days Transfer Training Goal, Activity Type big-bu-gnpxa/bfvyz-uo-hky Transfer Train Goal, Haywood Level conditional independence Plan of [facility] Annetta Sandoval RN - 08/11/2017 7:21 [...] call cabello within reach, Hourly rounding by RN/FIELD EXAMINER. Bed alarm / Chair alarm. ? Patient-specific fall prevention interventions for sensory deficits provided, if applicable: [X] Yes CPG GOAL OUTCOME EVALUATION: Initial Assessments - Kaitiln Saha RN - 08/09/2017 11:43 AM EST [...] 04/05/2013 Hospitalizations Within the Past 30 Days: [facility] 07/20/2017 Anticipated Length Of Stay (If known): Expected Length of Hospitalization: 5-7 days2-3 days Current Decision-Making Capacity: Alert and oriented x 4 Advance Care Planning: on file Kisha Hoang [facility] [phone] Current Coping/Education/Information Needs: pt and spouse state [...] Health/Prescription Coverage: Primary Insurance: MEDICARE Secondary Insurance: [employer]ement[employer] [facility] Prescription Coverage: See above Preferred Pharmacy: [facility] Other: N/A Primary Care Provider: Lovely Vicente MD [phone] Patient/Caregiver Goals of Treatment: Patient plans to return home when medically ready Potential Needs for Transition of Care: Rehab/SNF: N/A Home Health: [facility]. DME: pt has a cane and [...] of care planning. Kaitlin Saha RN Pager: [phone] Plan of Care - Melba Jaramillo RN [...] Overview Goal: Plan of Care Review 08/08/17 9094 Coping/Psychosocial Plan Of Care Reviewed With patient [...] call cabello within reach, Hourly rounding by RN/FIELD EXAMINER. Bed alarm / Chair alarm. Patient-specific fall [...] at bedside and MD TEAM Carrying pager [phone] contacted (via Radio page) and notified of [...] Visit Cardiology Liz Poole PA [facility] er Cardiology Dept [place], [place] 0[address] (Wo rk) 03/26/2022 Office Visit Cardiology Vitaliy Nobles MD [facility] ER CARDIOLOGY [place], [place] [address] (Wo rk) documented as of [...] section. TYPE AND SCREEN Routine 08/09/2017 1:10 ([facility]/SHANDA) AM EST BASIC METABOLIC [...] Signature POC Glucose 160 65 - 199 [facility] mg/dL [facility] Comment: Supplemental ranges: <140 mg/dL before meals <180 mg/dL all other times of the day Specimen Anatomical Collection Method Collection Time Receive d Time (Source) Location / / Volume Laterality Blood specimen 08/16/2017 7:28 AM 018 7:28 (specimen) EST AM EST Yonathan Smith MD POINT OF CARE TEST ORDERABLE S Performing Organization Address City/State/[place] [address] (ABNORMAL) Differential, Automated (08/16/2017 5:08 AM EST) Patholo gist Method Time Signature Neutrophils % 73.9 % [facility] Neutr Abs (ANC) 5.37 1.70 - [facility] 6.10 [facility] x10(3)/[facility] LABORATORY Lymphocytes % 10.1 % [facility] Lymphocytes Abs 0.7 (L) 0.9 - 3.2 [facility] x10(3)/[facility] LABORATORY Monocytes % 10.1 % [facility] Monocyte Abs 0.7 0.3 - 0.9 [facility] x10(3)/[facility] LABORATORY Eosinophils % 5.1 % [facility] Eosinophils Abs 0.4 0.0 - 0.4 [facility] x10(3)/[facility] LABORATORY Basophils % 0.4 % [facility] Basophils Abs 0.0 0.0 - 0.1 [facility] x10(3)/[facility] LABORATORY Immature Gran % 0.40 % [facility] [...] Melisa Gran Abs 0.03 0.00 - 0.04 x10(3)/[facility] Specimen Anatomical Collection Method Collection Time Receive d Time (Source) Location / / Volume Laterality Blood specimen 08/16/2017 5:08 AM 018 5:20 (specimen) EST AM EST Resulting Agency Comment Spec In Lab Yonathan Smith MD HEMATOLOGY ORDERABLES Performing Organization Address City/State/[place] [address] (ABNORMAL) Hemogram (08/16/2017 5:08 AM EST) Analysis Performed At Patho logist Time Signature WBC 7.3 4.0 - 9.5 [facility] x10(3)/[facility] LABORATORY RBC 3.36 (L) 4.58 - [facility] 5.54 [facility] x10(6)/[facility] LABORATORY Hemoglobin 9.7 (L) 13.7 - [facility] 16.5 gm/dL [facility] Hematocrit 30.3 (L) 40.5 - [facility] 48.5 % [facility] MCV 90.2 82.9 - [facility] [address] [facility] LABORATORY MCH 28.9 27.5 - [place] 32.1 pg [facility] MCHC 32.0 32.0 - [place] 35.7 gm/dL [facility] Platelets 282 145 - 357 [facility] x10(3)/[facility] LABORATORY RDWSD 53.9 (H) 36.0 - [facility] LABORATORY RDWCV 16.5 (H) 11.4 - [facility] 13.8 % [facility] MPV 9.0 7.6 - 12.9 [facility] LABORATORY nRBC % Auto 0.0 % [facility] LABORATORY nRBC Abs Auto 0.000 0.000 - [facility] 0.000 [facility] x10(3)/[facility] LABORATORY Specimen Anatomical Collection Method Collection Time Receive d Time (Source) Location / / Volume Laterality Blood specimen 08/16/2017 5:08 AM 018 5:20 (specimen) EST AM EST Resulting Agency Comment Spec In Lab Yonathan Smith MD HEMATOLOGY ORDERABLES Performing Organization Address City/State/[place] [address] (ABNORMAL) Basic Metabolic Panel (non-fasting) (08/16/2017 5:08 AM EST) athologist Signature Glucose Lvl 141 65 - 199 [facility] mg/dL [facility] Comment: Diabetes: >=200 mg/dL plus symp toms BUN 29 (H) 10 - 20 mg/dL [facility] LABORATORY Creatinine 1.25 0.80 - 1.50 mg/dL [facility] [...] estions. Chloride 99 98 - 107 mmol/L [facility] LABORATORY CO2 28 22 - 31 mmol/L [facility] LABORATORY Anion Gap 13 5 - 15 mmol/L [facility] LABORATORY Calcium 8.7 8.5 - 10.5 mg/dL [facility] LABORATORY Estimated GFR 57 (L) >=60 [facility] LABORATORY Comment: The reported eGFR should be multiplied b y 1.2 for patients. The MDRD is not an appropriate measure o f renal function for patients with body mass extremes or in patients with acute kidney failure. [email or web address] [email or web address]/DHMCnkf Specimen Anatomical Collection Method Collection Time Receive d Time (Source) Location / / Volume Laterality Blood specimen 08/16/2017 5:08 AM 018 5:20 (specimen) EST AM EST Resulting Agency Comment Spec In Lab Yonathan Smith MD CHEMISTRY ORDERABLES Performing Organization Address City/State/ZIP Code Phon e Number [place] [id number]ORY [address] (ABNORMAL) Prothrombin Time (08/16/2017 5:08 AM EST) athologist Signature PT 25.2 (H) 11.8 - 14.0 [facility] LABORATORY INR 2.3 (H) 0.9 - 1.1 [facility] [...] Smith MD HEMATOLOGY ORDERABLES Performing Organization Address City/[facility]/ZIP Code Phon e Number [address] POCT Glucose (08/16/2017 4:09 AM EST) athologist Signature POC Glucose 147 65 - 199 [place] mg/dL [facility] Comment: Supplemental ranges: <140 mg/dL before meals <180 mg/dL all other times of the day Specimen Anatomical Collection Method Collection Time Receive d Time (Source) Location / / Volume Laterality Blood specimen 08/16/2017 4:09 AM 018 4:09 (specimen) EST AM EST Yonathan Smith MD POINT OF CARE TEST ORDERABLE S Performing Organization Address City/[facility]/[place] [address] POCT Glucose (08/15/2017 11:56 PM EST) athologist Signature POC Glucose 176 65 - 199 [place] mg/dL [facility] Comment: Supplemental ranges: <140 mg/dL before meals <180 mg/dL all other times of the day Specimen Anatomical Collection Method Collection Time Receive d Time (Source) Location / / Volume Laterality Blood specimen 08/15/2017 11:56 8 (specimen) PM EST 11:56 PM EST Yonathan Smith MD POINT OF CARE TEST ORDERABLE S Performing Organization Address City/[facility]/ZIP Code Phon e Number [address] POCT Glucose (08/15/2017 8:05 PM EST) athologist Signature POC Glucose 136 65 - 199 [place] mg/dL [facility] Comment: Supplemental ranges: <140 mg/dL before meals <180 mg/dL all other times of the day Specimen Anatomical Collection Method Collection Time Receive d Time (Source) Location / / Volume Laterality Blood specimen 08/15/2017 8:05 PM 018 8:05 (specimen) EST PM EST Yonathan Smith MD POINT OF CARE TEST ORDERABLE S Performing Organization Address City/State/ZIP Code Phon e Number [address] (ABNORMAL) POCT Glucose (08/15/2017 4:50 PM EST) athologist Signature POC Glucose 232 (H) 65 - 199 [place] mg/dL [facility] Comment: Supplemental ranges: <140 mg/dL before meals <180 mg/dL all other times of the day Specimen Anatomical Collection Method Collection Time Receive d Time (Source) Location / / Volume Laterality Blood specimen 08/15/2017 4:50 PM 018 4:50 (specimen) EST PM EST Yonathan Smith MD POINT OF CARE TEST ORDERABLE S Performing Organization Address City/[facility]/ZIP Code Phon e Number [address] POCT Glucose (08/15/2017 12:04 PM EST) athologist Signature POC Glucose 135 65 - 199 [place] mg/dL [facility] Comment: Supplemental ranges: <140 mg/dL before meals <180 mg/dL all other times of the day Specimen Anatomical Collection Method Collection Time Receive d Time (Source) Location / / Volume Laterality Blood specimen 08/15/2017 12:04 8 (specimen) PM EST 12:04 PM EST Yonathan Smith MD POINT OF CARE TEST ORDERABLE S Performing Organization Address City/[facility]/[place] [address] POCT Glucose (08/15/2017 7:36 AM EST) athologist Signature POC Glucose 124 65 - 199 [place] mg/dL [facility] Comment: Supplemental ranges: <140 mg/dL before meals <180 mg/dL all other times of the day Specimen Anatomical Collection Method Collection Time Receive d Time (Source) Location / / Volume Laterality Blood specimen 08/15/2017 7:36 AM 018 7:36 (specimen) EST AM EST Yonathan Smith MD POINT OF CARE TEST ORDERABLE S Performing Organization Address City/[facility]/[place] [address] (ABNORMAL) Differential, Automated (08/15/2017 6:22 AM EST) [facility] Method Time Signature Neutrophils % 76.1 % [facility] LABORATORY Neutr Abs (ANC) 6.62 (H) 1.70 - [facility] 6.10 [facility] x10(3)/[facility] L LABORATORY Lymphocytes % 9.3 % [facility] LABORATORY Lymphocytes Abs 0.8 (L) 0.9 - 3.2 [facility] x10(3)/[facility] LABORATORY Monocytes % 9.4 % [facility] LABORATORY Monocyte Abs 0.8 0.3 - 0.9 [facility] x10(3)/[facility] LABORATORY Eosinophils % 4.0 % [facility] LABORATORY Eosinophils Abs 0.4 0.0 - 0.4 [facility] x10(3)/[facility] LABORATORY Basophils % 0.6 % [facility] LABORATORY Basophils Abs 0.0 0.0 - 0.1 [facility] x10(3)/[facility] LABORATORY Immature Gran % 0.60 % [facility] [...] Smith MD HEMATOLOGY ORDERABLES Performing Organization Address City/[facility]/[place] [address] (ABNORMAL) Hemogram (08/15/2017 6:22 AM EST) Analysis Performed At Patho logist Time Signature WBC 8.7 4.0 - 9.5 [facility] x10(3)/[facility] LABORATORY RBC 3.21 (L) 4.58 - [place] 5.54 [facility] x10(6)/[facility] LABORATORY Hemoglobin 9.1 (L) 13.7 - [facility] gm/dL [facility] Hematocrit 29.0 (L) 40.5 - [facility] 48.5 % [facility] MCV 90.3 82.9 - [facility] 93.[address] [facility] LABORATORY MCH 28.3 27.5 - [facility] 32.1 pg [facility] MCHC 31.4 (L) 32.0 - [facility] 35.7 gm/dL [facility] Platelets 254 145 - 357 [facility] x10(3)/[facility] LABORATORY RDWSD 53.9 (H) 36.0 - [place] SU 45.0 [facility] LABORATORY RDWCV 16.3 (H) 11.4 - [facility] 13.8 % [facility] MPV 8.8 7.6 - 12.9 [facility] LABORATORY nRBC % Auto 0.0 % [facility] LABORATORY nRBC Abs Auto 0.000 0.000 - [facility] 0.000 [facility] x10(3)/[facility] LABORATORY Specimen Anatomical Collection Method Collection Time Receive d Time (Source) Location / / Volume Laterality Blood specimen 08/15/2017 6:22 AM 018 6:33 (specimen) EST AM EST Resulting Agency Comment Spec In Lab Yonathan Smith MD HEMATOLOGY ORDERABLES Performing Organization Address City/State/[place] [address] (ABNORMAL) Basic Metabolic Panel (non-fasting) (08/15/2017 6:22 AM EST) P athologist Signature Glucose Lvl 118 65 - 199 [facility] mg/dL [facility] Comment: Diabetes: >=200 mg/dL plus symp toms BUN 27 (H) 10 - 20 mg/dL [facility] LABORATORY Creatinine 1.12 0.80 - 1.50 mg/dL [facility] LABORATORY Sodium 138 135 - 145 mmol/L [facility] LABORATORY Potassium 4.6 3.5 - 5.0 mmol/L [facility] LABORATORY Comment: Please note: ??Patients with WBC >100,00 0 may have falsely elevated Potassium levels. ??For accurate Potassium quantif ication in these patients send serum separator tube (gold top) for subsequent determinations. ??Contact the Clinical Chemistry Laboratory if there are any qu estions. Chloride 98 98 - 107 mmol/L [facility] LABORATORY CO2 29 22 - 31 mmol/L [facility] LABORATORY Anion Gap 11 5 - 15 mmol/L [facility] LABORATORY Calcium 8.8 8.5 - 10.5 mg/dL [facility] LABORATORY Estimated GFR >60 >=60 [facility] LABORATORY Comment: The reported eGFR should be multiplied b y 1.2 for patients. The MDRD is not an appropriate measure o f renal function for patients with body mass extremes or in patients with acute kidney failure. [email or web address] [email or web address]://Kno/DHMCnkf Specimen Anatomical Collection Method Collection Time Receive d Time (Source) Location / / Volume Laterality Blood specimen 08/15/2017 6:22 AM 018 6:33 (specimen) EST AM EST Resulting Agency Comment Spec In Lab Yonathan Smith MD CHEMISTRY ORDERABLES Performing Organization Address City/State/[place] [address] (ABNORMAL) Prothrombin Time (08/15/2017 6:22 AM EST) athologist Signature PT 21.9 (H) 11.8 - 14.0 [facility] LABORATORY INR 1.9 (H) 0.9 - 1.1 [facility] [...] Smith MD HEMATOLOGY ORDERABLES Performing Organization Address City/[facility]/ZIP Code Phon e Number [address] POCT Glucose (08/15/2017 4:33 AM EST) athologist Signature POC Glucose 164 65 - 199 [facility] mg/dL [facility] Comment: Supplemental ranges: <140 mg/dL before meals <180 mg/dL all other times of the day Specimen Anatomical Collection Method Collection Time Receive d Time (Source) Location / / Volume Laterality Blood specimen 08/15/2017 4:33 AM 018 4:33 (specimen) EST AM EST Yonathan Smith MD POINT OF CARE TEST ORDERABLE S Performing Organization Address City/[facility]/[place] [address] POCT Glucose (08/15/2017 12:12 AM EST) athologist Signature POC Glucose 89 65 - 199 [facility] mg/dL [facility] Comment: Supplemental ranges: <140 mg/dL before meals <180 mg/dL all other times of the day Specimen Anatomical Collection Method Collection Time Receive d Time (Source) Location / / Volume Laterality Blood specimen 08/15/2017 12:12 8 (specimen) AM EST 12:12 AM EST Yonathan Smith MD POINT OF CARE TEST ORDERABLE S Performing Organization Address City/[facility]/[place] [address] (ABNORMAL) POCT Glucose (08/14/2017 8:07 PM EST) athologist Signature POC Glucose 204 (H) 65 - 199 [facility] SU mg/dL [facility] Comment: Supplemental ranges: <140 mg/dL before meals <180 mg/dL all other times of the day Specimen Anatomical Collection Method Collection Time Receive d Time (Source) Location / / Volume Laterality Blood specimen 08/14/2017 8:07 PM 018 8:07 (specimen) EST PM EST Yonathan Smith MD POINT OF CARE TEST ORDERABLE S Performing Organization Address City/State/ZIP Code Phon e Number [address] POCT Glucose (08/14/2017 5:11 PM EST) athologist Signature POC Glucose 174 65 - 199 [facility] mg/dL [facility] Comment: Supplemental ranges: <140 mg/dL before meals <180 mg/dL all other times of the day Specimen Anatomical Collection Method Collection Time Receive d Time (Source) Location / / Volume Laterality Blood specimen 08/14/2017 5:11 PM 018 5:11 (specimen) EST PM EST Yonathan Smith MD POINT OF CARE TEST ORDERABLE S Performing Organization Address City/State/ZIP Code Phon e Number [address] POCT Glucose (08/14/2017 12:10 PM EST) athologist Signature POC Glucose 141 65 - 199 [facility] SU mg/dL [facility] Comment: Supplemental ranges: <140 mg/dL before meals <180 mg/dL all other times of the day Specimen Anatomical Collection Method Collection Time Receive d Time (Source) Location / / Volume Laterality Blood specimen 08/14/2017 12:10 8 (specimen) PM EST 12:10 PM EST Yonathan Smith MD POINT OF CARE TEST ORDERABLE S Performing Organization Address City/State/[place] [address] POCT Glucose (08/14/2017 8:07 AM EST) P athologist Signature POC Glucose 158 65 - 199 [facility] mg/dL [facility] Comment: Supplemental ranges: <140 mg/dL before meals <180 mg/dL all other times of the day Specimen Anatomical Collection Method Collection Time Receive d Time (Source) Location / / Volume Laterality Blood specimen 08/14/2017 8:07 AM 018 8:07 (specimen) EST AM EST Yonathan Smith MD POINT OF CARE TEST ORDERABLE S Performing Organization Address City/State/[place] [address] (ABNORMAL) Differential, Automated (08/14/2017 4:52 AM EST) Patholo gist Method Time Signature Neutrophils % 78.6 % [facility] LABORATORY Neutr Abs (ANC) 7.70 (H) 1.70 - [facility] 6.10 [facility] x10(3)/[facility] LABORATORY Lymphocytes % 7.8 % [facility] LABORATORY Lymphocytes Abs 0.8 (L) 0.9 - 3.2 [facility] x10(3)/[facility] LABORATORY Monocytes % 8.8 % [facility] LABORATORY Monocyte Abs 0.9 0.3 - 0.9 [facility] x10(3)/[facility] LABORATORY Eosinophils % 4.0 % [facility] LABORATORY Eosinophils Abs 0.4 0.0 - 0.4 [facility] x10(3)/[facility] LABORATORY Basophils % 0.5 % [facility] LABORATORY Basophils Abs 0.0 0.0 - 0.1 [facility] x10(3)/[facility] LABORATORY Immature Gran % 0.30 % [...] Melisa Gran Abs 0.03 0.00 - 0.04 x10(3)/[facility] LABORATORY Specimen Anatomical Collection Method Collection Time Receive d Time (Source) Location / / Volume Laterality Blood specimen 08/14/2017 4:52 AM 018 5:08 (specimen) EST AM EST Resulting Agency Comment Spec In Lab Yonathan Smith MD HEMATOLOGY ORDERABLES Performing Organization Address City/State/[place] [address] (ABNORMAL) Hemogram (08/14/2017 4:52 AM EST) Analysis Performed At Patho logist Time Signature WBC 9.8 (H) 4.0 - 9.5 [facility] x10(3)/[facility] LABORATORY RBC 3.32 (L) 4.58 - [facility] 5.54 [facility] x10(6)/[facility] LABORATORY Hemoglobin 9.5 (L) 13.7 - [facility] 16.5 gm/dL [facility] Hematocrit 30.3 (L) 40.5 - [facility] 48.5 % [facility] MCV 91.3 82.9 - [facility] [address] LABORATORY MCH 28.6 27.5 - [facility] 32.1 pg [facility] MCHC 31.4 (L) 32.0 - [facility] 35.7 gm/dL [facility] Platelets 263 145 - 357 [facility] x10(3)/[facility] LABORATORY RDWSD 54.8 (H) 36.0 - [facility] LABORATORY RDWCV 16.5 (H) 11.4 - [facility] 13.8 % [facility] MPV 9.1 7.6 - 12.9 [facility] LABORATORY nRBC % Auto 0.0 % [facility] LABORATORY nRBC Abs Auto 0.000 0.000 - [facility] 0.000 [facility] x10(3)/[facility] LABORATORY Specimen Anatomical Collection Method Collection Time Receive d Time (Source) Location / / Volume Laterality Blood specimen 08/14/2017 4:52 AM 018 5:08 (specimen) EST AM EST Resulting Agency Comment Spec In Lab Yonathan Smith MD HEMATOLOGY ORDERABLES Performing Organization Address City/[facility]/[place] [address] (ABNORMAL) Prothrombin Time (08/14/2017 4:52 AM EST) athologist Signature PT 18.8 (H) 11.8 - 14.0 [facility] LABORATORY INR 1.6 (H) 0.9 - 1.1 [facility] Smith MD HEMATOLOGY ORDERABLES Performing Organization Address City/[facility]/[place] [address] (ABNORMAL) Basic Metabolic Panel (non-fasting) (08/14/2017 4:52 AM EST) athologist Signature Glucose Lvl 135 65 - 199 [facility] mg/dL [facility] Comment: Diabetes: >=200 mg/dL plus symp toms BUN 25 (H) 10 - 20 mg/dL [facility] LABORATORY Creatinine 1.36 0.80 - 1.50 mg/dL [facility] LABORATORY Sodium 141 135 - 145 mmol/L [facility] LABORATORY Potassium 4.8 3.5 - 5.0 mmol/L [facility] LABORATORY Comment: Please note: ??Patients with WBC >100,00 0 may have falsely elevated Potassium levels. ??For accurate Potassium quantif ication in these patients send serum separator tube (gold top) for subsequent determinations. ??Contact the Clinical Chemistry Laboratory if there are any qu estions. Chloride 100 98 - 107 mmol/L [facility] LABORATORY CO2 28 22 - 31 mmol/L [facility] LABORATORY Anion Gap 13 5 - 15 mmol/L [facility] LABORATORY Calcium 8.5 8.5 - 10.5 mg/dL [facility] LABORATORY Estimated GFR 52 (L) >=60 [facility] LABORATORY Comment: The reported eGFR should be multiplied b y 1.2 for patients. The MDRD is not an appropriate measure o f renal function for patients with body mass extremes or in patients with acute kidney failure. http://[email or web address]/DHnkdep http://Kno/DHMCnkf Specimen Anatomical Collection Method Collection Time Receive d Time (Source) Location / / Volume Laterality Blood specimen 08/14/2017 4:52 AM 018 5:08 (specimen) EST AM EST Resulting Agency Comment Spec In Lab Yonathan Smith MD CHEMISTRY ORDERABLES Performing Organization Address City/[facility]/ZIP Code Phon e Number [address] POCT Glucose (08/14/2017 3:56 AM EST) athologist Signature POC Glucose 135 65 - 199 [facility] mg/dL [facility] Comment: Supplemental ranges: <140 mg/dL before meals <180 mg/dL all other times of the day Specimen Anatomical Collection Method Collection Time Receive d Time (Source) Location / / Volume Laterality Blood specimen 08/14/2017 3:56 AM 018 3:56 (specimen) EST AM EST Yonathan Smith MD POINT OF CARE TEST ORDERABLE S Performing Organization Address City/[facility]/ZIP Code Phon e Number [address] POCT Glucose (08/13/2017 11:13 PM EST) athologist Signature POC Glucose 118 65 - 199 [facility] mg/dL [facility] Comment: Supplemental ranges: <140 mg/dL before meals <180 mg/dL all other times of the day Specimen Anatomical Collection Method Collection Time Receive d Time (Source) Location / / Volume Laterality Blood specimen 08/13/2017 11:13 8 (specimen) PM EST 11:13 PM EST Yonathan Smith MD POINT OF CARE TEST ORDERABLE S Performing Organization Address City/State/[place] [address] (ABNORMAL) POCT Glucose (08/13/2017 8:08 PM EST) athologist Signature POC Glucose 204 (H) 65 - 199 [place] [facility] mg/dL [facility] Comment: Supplemental ranges: <140 mg/dL before meals <180 mg/dL all other times of the day Specimen Anatomical Collection Method Collection Time Receive d Time (Source) Location / / Volume Laterality Blood specimen 08/13/2017 8:08 PM 018 8:08 (specimen) EST PM EST Yonathan Smith MD POINT OF CARE TEST ORDERABLE S Performing Organization Address City/State/[place] [address] POCT Glucose (08/13/2017 4:02 PM EST) athologist Signature POC Glucose 145 65 - 199 [place] [facility] mg/dL [facility] Comment: Supplemental ranges: <140 mg/dL before meals <180 mg/dL all other times of the day Specimen Anatomical Collection Method Collection Time Receive d Time (Source) Location / / Volume Laterality Blood specimen 08/13/2017 4:02 PM 018 4:02 (specimen) EST PM EST Yonathan Smith MD POINT OF CARE TEST ORDERABLE S Performing Organization Address City/State/[place] [address] POCT Glucose (08/13/2017 11:31 AM EST) athologist Signature POC Glucose 179 65 - 199 [place] mg/dL [facility] Comment: Supplemental ranges: <140 mg/dL before meals <180 mg/dL all other times of the day Specimen Anatomical Collection Method Collection Time Receive d Time (Source) Location / / Volume Laterality Blood specimen 08/13/2017 11:31 8 (specimen) AM EST 11:31 AM EST Yonathan Smith MD POINT OF CARE TEST ORDERABLE S Performing Organization Address City/[facility]/ZIP [place] [address] (ABNORMAL) POCT Glucose (08/13/2017 10:16 AM EST) P athologist Signature POC Glucose 211 (H) 65 - 199 [facility] mg/dL [facility] Comment: Supplemental ranges: <140 mg/dL before meals <180 mg/dL all other times of the day Specimen Anatomical Collection Method Collection Time Receive d Time (Source) Location / / Volume Laterality Blood specimen 08/13/2017 10:16 8 (specimen) AM EST 10:16 AM EST Yonathan Smith MD POINT OF CARE TEST ORDERABLE S Performing Organization Address City/State/[place] [address] JULIAN, legs, multiple levels (08/13/2017 7:42 AM EST) Component Value Ref Test Analysis Performed At Patholo gist Range Method Time Signature VB Text Department: Vascular Surgery Lab VASCUBASE Report Patient: [id number] (GREGORY HOANG) CPT: 31145 ICD10: I99.8 Referring Physician: YONATHAN SMITH ?? Indications: s/p R 1,2,3 toe amps with red left foot, need n ew baseline Diabetes mellitus: yes ICD10 Diagnosis Code: I99.8 Findings: Right ?Pressure (mm Hg) ?? JULIAN ??Waveform ?TBI ?? Brachial Artery ?138 ? Dorsalis Pedis (Ankle) Arter y ?132 ? 0.94 ??Gosper- Biphasic ? Posterior Tibial (Ankle) Art anila ??154 ? 1.10 ??Gosper-Biphasic ? Fourth Toe ? 67 ? 0.48 [...] Signature POC Glucose 156 65 - 199 [facility] mg/dL [facility] Comment: Supplemental ranges: <140 mg/dL before meals <180 mg/dL all other times of the day Specimen Anatomical Collection Method Collection Time Receive d Time (Source) Location / / Volume Laterality Blood specimen 08/13/2017 7:33 AM 018 7:33 (specimen) EST AM EST Yonathan Smith MD POINT OF CARE TEST ORDERABLE S Performing Organization Address City/[facility]/[place] [address] (ABNORMAL) Differential, Automated (08/13/2017 5:33 AM EST) Patholo gist Method Time Signature Neutrophils % 77.8 % [facility]ORY Neutr Abs (ANC) 7.83 (H) 1.70 - [facility] 6.10 [facility] x10(3)/[facility] L LABORATORY Lymphocytes % 8.4 % [facility]ORY Lymphocytes Abs 0.8 (L) 0.9 - 3.2 [facility] x10(3)/[facility] LABORATORY Monocytes % 8.3 % [facility] Monocyte Abs 0.8 0.3 - 0.9 [facility] x10(3)/[facility] LABORATORY Eosinophils % 4.6 % [facility] Eosinophils Abs 0.5 (H) 0.0 - 0.4 [facility] x10(3)/[facility] LABORATORY Basophils % 0.5 % [facility]ORY Basophils Abs 0.0 0.0 - 0.1 [facility] x10(3)/[facility] LABORATORY Immature Gran % 0.40 % [...] Melisa Gran Abs 0.04 0.00 - 0.04 x10(3)/[facility] LABORATORY Specimen Anatomical Collection Method Collection Time Receive d Time (Source) Location / / Volume Laterality Blood specimen 08/13/2017 5:33 AM 018 6:04 (specimen) EST AM EST Resulting Agency Comment Spec In Lab Yonathan Smith MD HEMATOLOGY ORDERABLES Performing Organization Address City/State/[place] [address] (ABNORMAL) Hemogram (08/13/2017 5:33 AM EST) Analysis Performed At Patho logist Time Signature WBC 10.1 (H) 4.0 - 9.5 [facility] x10(3)/[facility] LABORATORY RBC 3.21 (L) 4.58 - [facility] 5.54 [facility] x10(6)/[facility] LABORATORY Hemoglobin 9.2 (L) 13.7 - [place] 16.5 gm/dL [facility] Hematocrit 29.6 (L) 40.5 - [place] 48.5 % [facility] MCV 92.2 82.9 - [place] [facility] [address] [facility] LABORATORY MCH 28.7 27.5 - [place] 32.1 pg [facility] MCHC 31.1 (L) 32.0 - [place] 35.7 gm/dL [facility] Platelets 263 145 - 357 [facility] x10(3)/[facility] LABORATORY RDWSD 54.8 (H) 36.0 - [place] [address] [facility] LABORATORY RDWCV 16.4 (H) 11.4 - [facility] SU 13.8 % [facility] MPV 9.2 7.6 - 12.9 [facility] nRBC % Auto 0.0 % [facility]ORY nRBC Abs Auto 0.000 0.000 - [place] 0.000 [facility] x10(3)/[facility] LABORATORY Specimen Anatomical Collection Method Collection Time Receive d Time (Source) Location / / Volume Laterality Blood specimen 08/13/2017 5:33 AM 018 6:04 (specimen) EST AM EST Resulting Agency Comment Spec In Lab Yonathan Smith MD HEMATOLOGY ORDERABLES Performing Organization Address City/State/[place] [address] (ABNORMAL) Prothrombin Time (08/13/2017 5:33 AM EST) athologist Signature PT 17.3 (H) 11.8 - 14.0 [facility] LABORATORY INR 1.4 (H) 0.9 - 1.1 [facility] [...] Organization Address City/State/[place] [address] (ABNORMAL) Basic Metabolic Panel (non-fasting) (08/13/2017 5:33 AM EST) athologist Signature Glucose Lvl 126 65 - 199 [facility] mg/dL [facility] Comment: Diabetes: >=200 mg/dL plus symp toms BUN 18 10 - 20 mg/dL [facility] Creatinine 1.16 0.80 - 1.50 mg/dL [facility] Sodium 141 135 - 145 mmol/L [facility] Potassium 4.6 3.5 - 5.0 mmol/L [facility] Comment: Please note: ??Patients with WBC >100,00 0 may have falsely elevated Potassium levels. ??For accurate Potassium quantif ication in these patients send serum separator tube (gold top) for subsequent determinations. ??Contact the Clinical Chemistry Laboratory if there are any qu estions. Chloride 100 98 - 107 mmol/L [facility] CO2 29 22 - 31 mmol/L [facility] Anion Gap 12 5 - 15 mmol/L [facility] Calcium 7.9 (L) 8.5 - 10.5 mg/dL [facility] Estimated GFR >60 >=60 [facility] Comment: The reported eGFR should be multiplied b y 1.2 for patients. The MDRD is not an appropriate measure o f renal function for patients with body mass extremes or in patients with acute kidney failure. [email or web address] [email or web address]/DHMCnkf Specimen Anatomical Collection Method Collection Time Receive d Time (Source) Location / / Volume Laterality Blood specimen 08/13/2017 5:33 AM 018 6:04 (specimen) EST AM EST Resulting Agency Comment Spec In Lab Yonathan Smith MD CHEMISTRY ORDERABLES Performing Organization Address City/[facility] Phon e Number [address] POCT Glucose (08/13/2017 4:29 AM EST) athologist Signature POC Glucose 111 65 - 199 [place] [facility] mg/dL [facility] Comment: Supplemental ranges: <140 mg/dL before meals <180 mg/dL all other times of the day Specimen Anatomical Collection Method Collection Time Receive d Time (Source) Location / / Volume Laterality Blood specimen 08/13/2017 4:29 AM 018 4:29 (specimen) EST AM EST Yonathan Smith MD POINT OF CARE TEST ORDERABLE S Performing Organization Address [facility] Phon e Number [address] POCT Glucose (08/12/2017 11:28 PM EST) athologist Signature POC Glucose 164 65 - 199 [place] [facility] mg/dL [facility] Comment: Supplemental ranges: <140 mg/dL before meals <180 mg/dL all other times of the day Specimen Anatomical Collection Method Collection Time Receive d Time (Source) Location / / Volume Laterality Blood specimen 08/12/2017 11:28 8 (specimen) PM EST 11:28 PM EST Yonathan Smith MD POINT OF CARE TEST ORDERABLE S Performing Organization Address City/[facility]/ZIP [facility] Phon e Number [address] (ABNORMAL) POCT Glucose (08/12/2017 7:40 PM EST) athologist Signature POC Glucose 209 (H) 65 - 199 [facility] SU mg/dL [facility] Comment: Supplemental ranges: <140 mg/dL before meals <180 mg/dL all other times of the day Specimen Anatomical Collection Method Collection Time Receive d Time (Source) Location / / Volume Laterality Blood specimen 08/12/2017 7:40 PM 018 7:40 (specimen) EST PM EST Yonathan Smith MD POINT OF CARE TEST ORDERABLE S Performing Organization Address City/State/ZIP Code Phon e Number [address] POCT Glucose (08/12/2017 4:24 PM EST) athologist Signature POC Glucose 161 65 - 199 [place] [facility] mg/dL [facility] Comment: Supplemental ranges: <140 mg/dL before meals <180 mg/dL all other times of the day Specimen Anatomical Collection Method Collection Time Receive d Time (Source) Location / / Volume Laterality Blood specimen 08/12/2017 4:24 PM 018 4:24 (specimen) EST PM EST Yonathan Smith MD POINT OF CARE TEST ORDERABLE S Performing Organization Address City/State/ZIP Code Phon e Number [address] POCT Glucose (08/12/2017 12:00 PM EST) athologist Signature POC Glucose 167 65 - 199 [place] [facility] mg/dL [facility] Comment: Supplemental ranges: <140 mg/dL before meals <180 mg/dL all other times of the day Specimen Anatomical Collection Method Collection Time Receive d Time (Source) Location / / Volume Laterality Blood specimen 08/12/2017 12:00 8 (specimen) PM EST 12:00 PM EST Yonathan Smith MD POINT OF CARE TEST ORDERABLE S Performing Organization Address City/State/[place] [address] POCT Glucose (08/12/2017 7:25 AM EST) athologist Signature POC Glucose 152 65 - 199 [place] mg/dL [facility] Comment: Supplemental ranges: <140 mg/dL before meals <180 mg/dL all other times of the day Specimen Anatomical Collection Method Collection Time Receive d Time (Source) Location / / Volume Laterality Blood specimen 08/12/2017 7:25 AM 018 7:25 (specimen) EST AM EST Yonathan Smith MD POINT OF CARE TEST ORDERABLE S Performing Organization Address City/State/[place] [address] [facility] LAB[address]ORY Drive (ABNORMAL) Differential, Automated (08/12/2017 6:29 AM EST) [facility] Method Time Signature Neutrophils % 78.7 % [facility] Neutr Abs (ANC) 7.94 (H) 1.70 - [facility] 6.10 [facility] x10(3)/[facility] LABORATORY Lymphocytes % 8.8 % [facility] Lymphocytes Abs 0.9 0.9 - 3.2 [facility] x10(3)/[facility] LABORATORY Monocytes % 7.8 % [facility]ORY Monocyte Abs 0.8 0.3 - 0.9 [facility] x10(3)/[facility] LABORATORY Eosinophils % 3.9 % [facility]ORY Eosinophils Abs 0.4 0.0 - 0.4 [facility] x10(3)/[facility] LABORATORY Basophils % 0.3 % [facility]ORY Basophils Abs 0.0 0.0 - 0.1 [facility] x10(3)/[facility] LABORATORY Immature Gran % 0.50 % [...] Organization Address City/State/[place] [address] (ABNORMAL) Hemogram (08/12/2017 6:29 AM EST) Analysis Performed At Patho logist Time Signature WBC 10.1 (H) 4.0 - 9.5 [facility] x10(3)/[facility] LABORATORY RBC 3.02 (L) 4.58 - [place] 5.54 [facility] x10(6)/[facility] LABORATORY Hemoglobin 8.7 (L) 13.7 - [facility] 16.5 gm/dL [facility] Hematocrit 28.1 (L) 40.5 - [facility] 48.5 % [facility] MCV 93.0 82.9 - [facility] 93.[address] [facility] LABORATORY MCH 28.8 27.5 - [facility] 32.[facility] pg [facility] MCHC 31.0 (L) 32.0 - [facility] 35.7 gm/dL [facility] Platelets 223 145 - 357 [facility] x10(3)/[facility] LABORATORY RDWSD 56.1 (H) 36.0 - [facility] 45.[address] [facility] LABORATORY RDWCV 16.4 (H) 11.4 - [facility] 13.8 % [facility] MPV 9.0 7.6 - 12.9 [facility] LABORATORY nRBC % Auto 0.0 % [facility] nRBC Abs Auto 0.000 0.000 - [facility] 0.000 [facility] x10(3)/[facility] LABORATORY Specimen Anatomical Collection Method Collection Time Receive d Time (Source) Location / / Volume Laterality Blood specimen 08/12/2017 6:29 AM 018 6:38 (specimen) EST AM EST Resulting Agency Comment Spec In Lab Yonathan Smith MD HEMATOLOGY ORDERABLES Performing Organization Address City/State/ZIP Code Phon e Number [address] (ABNORMAL) Prothrombin Time (08/12/2017 6:29 AM EST) P athologist Signature PT 16.1 (H) 11.8 - 14.0 [facility] LABORATORY INR 1.3 (H) 0.9 - 1.1 [facility] [...] Organization Address City/State/[place] [address] (ABNORMAL) Basic Metabolic Panel (non-fasting) (08/12/2017 6:29 AM EST) P athologist Signature Glucose Lvl 151 65 - 199 [facility] mg/dL [facility] Comment: Diabetes: >=200 mg/dL plus symp toms BUN 18 10 - 20 mg/dL [facility] Creatinine 1.11 0.80 - 1.50 mg/dL [facility] Sodium 138 135 - 145 mmol/L [facility] Potassium 4.6 3.5 - 5.0 mmol/L [facility] Comment: Please note: ??Patients with WBC >100,00 0 may have falsely elevated Potassium levels. ??For accurate Potassium quantif ication in these patients send serum separator tube (gold top) for subsequent determinations. ??Contact the Clinical Chemistry Laboratory if there are any qu estions. Chloride 99 98 - 107 mmol/L [facility] CO2 28 22 - 31 mmol/L [facility] Anion Gap 11 5 - 15 mmol/L [facility] Calcium 7.9 (L) 8.5 - 10.5 mg/dL [facility] Estimated GFR >60 >=60 [facility] Comment: The reported eGFR should be multiplied b y 1.2 for patients. The MDRD is not an appropriate measure o f renal function for patients with body mass extremes or in patients with acute kidney failure. [email or web address] [email or web address]/DHMCnkf Specimen Anatomical Collection Method Collection Time Receive d Time (Source) Location / / Volume Laterality Blood specimen 08/12/2017 6:29 AM 018 6:38 (specimen) EST AM EST Resulting Agency Comment Spec In Lab Yonathan Smith MD CHEMISTRY ORDERABLES Performing Organization Address City/[facility]/ZIP Code Phon e Number [address] POCT Glucose (08/12/2017 4:08 AM EST) athologist Signature POC Glucose 181 65 - 199 [facility] mg/dL [facility] Comment: Supplemental ranges: <140 mg/dL before meals <180 mg/dL all other times of the day Specimen Anatomical Collection Method Collection Time Receive d Time (Source) Location / / Volume Laterality Blood specimen 08/12/2017 4:08 AM 018 4:08 (specimen) EST AM EST Yonathan Smith MD POINT OF CARE TEST ORDERABLE S Performing Organization Address City/[facility]/[place] [address] (ABNORMAL) POCT Glucose (08/12/2017 12:17 AM EST) athologist Signature POC Glucose 221 (H) 65 - 199 [facility] Comment: Supplemental ranges: <140 mg/dL before meals <180 mg/dL all other times of the day Specimen Anatomical Collection Method Collection Time Receive d Time (Source) Location / / Volume Laterality Blood specimen 08/12/2017 12:17 8 (specimen) AM EST 12:17 AM EST Yonathan Smith MD POINT OF CARE TEST ORDERABLE S Performing Organization Address City/[facility]/[place] [address] (ABNORMAL) POCT Glucose (08/11/2017 8:52 PM EST) athologist Signature POC Glucose 221 (H) 65 - 199 [facility] mg/dL [facility] Comment: Supplemental ranges: <140 mg/dL before meals <180 mg/dL all other times of the day Specimen Anatomical Collection Method Collection Time Receive d Time (Source) Location / / Volume Laterality Blood specimen 08/11/2017 8:52 PM 018 8:52 (specimen) EST PM EST Yonathan Smith MD POINT OF CARE TEST ORDERABLE S Performing Organization Address City/State/[place] [address] POCT Glucose (08/11/2017 5:59 PM EST) athologist Signature POC Glucose 169 65 - 199 [facility] mg/dL [facility] Comment: Supplemental ranges: <140 mg/dL before meals <180 mg/dL all other times of the day Specimen Anatomical Collection Method Collection Time Receive d Time (Source) Location / / Volume Laterality Blood specimen 08/11/2017 5:59 PM 018 5:59 (specimen) EST PM EST Yonathan Smith MD POINT OF CARE TEST ORDERABLE S Performing Organization Address City/[facility]/[place] [address] (ABNORMAL) POCT Glucose (08/11/2017 4:08 PM EST) athologist Signature POC Glucose 240 (H) 65 - 199 [facility] mg/dL [facility] Comment: Supplemental ranges: <140 mg/dL before meals <180 mg/dL all other times of the day Specimen Anatomical Collection Method Collection Time Receive d Time (Source) Location / / Volume Laterality Blood specimen 08/11/2017 4:08 PM 018 4:08 (specimen) EST PM EST Yonathan Smith MD POINT OF CARE TEST ORDERABLE S Performing Organization Address City/State/[place] [address] POCT Glucose (08/11/2017 12:04 PM EST) athologist Signature POC Glucose 182 65 - 199 [facility] mg/dL [facility] Comment: Supplemental ranges: <140 mg/dL before meals <180 mg/dL all other times of the day Specimen Anatomical Collection Method Collection Time Receive d Time (Source) Location / / Volume Laterality Blood specimen 08/11/2017 12:04 8 (specimen) PM EST 12:04 PM EST Yonathan Smith MD POINT OF CARE TEST ORDERABLE S Performing Organization Address City/State/ZIP Code Phon e Number [address] POCT Glucose (08/11/2017 7:31 AM EST) athologist Signature POC Glucose 156 65 - 199 [facility] mg/dL [facility] Comment: Supplemental ranges: <140 mg/dL before meals <180 mg/dL all other times of the day Specimen Anatomical Collection Method Collection Time Receive d Time (Source) Location / / Volume Laterality Blood specimen 08/11/2017 7:31 AM 018 7:31 (specimen) EST AM EST Yonathan Smith MD POINT OF CARE TEST ORDERABLE S Performing Organization Address City/State/ZIP Code Phon e Number [address] (ABNORMAL) Differential, Automated (08/11/2017 6:16 AM EST) [facility] gist Method Time Signature Neutrophils % 83.7 % [facility]OR[facility]ORY Neutr Abs (ANC) 10.76 (H) 1.70 - [facility] 6.10 [facility] x10(3)/[facility] L LABORATORY Lymphocytes % 6.0 % [facility]ORY Lymphocytes Abs 0.8 (L) 0.9 - 3.2 [facility] x10(3)/[facility] LABORATORY Monocytes % 7.5 % [facility]ORY Monocyte Abs 1.0 (H) 0.3 - 0.9 [facility] x10(3)/[facility] LABORATORY Eosinophils % 2.0 % [facility] Eosinophils Abs 0.3 0.0 - 0.4 [facility] x10(3)/[facility] LABORATORY Basophils % 0.3 % [facility] Basophils Abs 0.0 0.0 - 0.1 [facility] x10(3)/[facility] LABORATORY Immature Gran % 0.50 % [...] City/State/ZIP Code Phon e Number [place] [id number] (ABNORMAL) Hemogram (08/11/2017 6:16 AM EST) Analysis Performed At Patho logist Time Signature WBC 12.9 (H) 4.0 - 9.5 [facility] x10(3)/[facility] LABORATORY RBC 3.28 (L) 4.58 - [facility] 5.54 [facility] x10(6)/[facility] LABORATORY Hemoglobin 9.5 (L) 13.7 - [facility] gm/dL [facility] Hematocrit 29.8 (L) 40.5 - [facility] 48.5 % [facility] MCV 90.9 82.9 - [facility] 93.1 fL [facility] MCH 29.0 27.5 - [facility] 32.1 pg [facility] MCHC 31.9 (L) 32.0 - [facility] 35.7 gm/dL [facility] Platelets 236 145 - 357 [facility] x10(3)/[facility] LABORATORY RDWSD 53.5 (H) 36.0 - [facility] 45.[address] [facility] LABORATORY RDWCV 16.3 (H) 11.4 - [facility] 13.8 % [facility] MPV 8.8 7.6 - 12.9 [facility] LABORATORY nRBC % Auto 0.0 % [facility] LABORATORY nRBC Abs Auto 0.000 0.000 - [place] [facility] 0.000 [facility] x10(3)/[facility] LABORATORY Specimen Anatomical Collection Method Collection Time Receive d Time (Source) Location / / Volume Laterality Blood specimen 08/11/2017 6:16 AM 018 6:24 (specimen) EST AM EST Resulting Agency Comment Spec In Lab Yonathan Smith MD HEMATOLOGY ORDERABLES Performing Organization Address City/[facility] [place] [address] (ABNORMAL) Prothrombin Time (08/11/2017 6:16 AM EST) P athologist Signature PT 15.5 (H) 11.8 - 14.0 [facility] LABORATORY INR 1.3 (H) 0.9 - 1.1 [facility] [...] Smith MD HEMATOLOGY ORDERABLES Performing Organization Address City/[facility] [place] [address] Basic Metabolic Panel (non-fasting) (08/11/2017 6:16 AM EST) P athologist Signature Glucose Lvl 139 65 - 199 [facility] mg/dL [facility] Comment: Diabetes: >=200 mg/dL plus symp toms BUN 12 10 - 20 mg/dL [facility] LABORATORY Creatinine 0.91 0.80 - 1.50 mg/dL [facility]OR[facility]ORY Sodium 138 135 - 145 mmol/L [facility] Potassium 4.6 3.5 - 5.0 mmol/L [facility] Comment: Please note: ??Patients with WBC >100,00 0 may have falsely elevated Potassium levels. ??For accurate Potassium quantif ication in these patients send serum separator tube (gold top) for subsequent determinations. ??Contact the Clinical Chemistry Laboratory if there are any qu estions. Chloride 98 98 - 107 mmol/L [facility] CO2 27 22 - 31 mmol/L [facility] Anion Gap 13 5 - 15 mmol/L [facility] Calcium 8.5 8.5 - 10.5 mg/dL [facility] Estimated GFR >60 >=60 [facility] Comment: The reported eGFR should be multiplied b y 1.2 for patients. The MDRD is not an appropriate measure o f renal function for patients with body mass extremes or in patients with acute kidney failure. [email or web address] Specimen Anatomical Collection Method Collection Time Receive d Time (Source) Location / / Volume Laterality Blood specimen 08/11/2017 6:16 AM 018 6:24 (specimen) EST AM EST Resulting Agency Comment Spec In Lab Yonathan Smith MD CHEMISTRY ORDERABLES Performing Organization Address City/State/[place] [address] POCT Glucose (08/11/2017 4:07 AM EST) athologist Signature POC Glucose 162 65 - 199 [facility] mg/dL [facility] Comment: Supplemental ranges: <140 mg/dL before meals <180 mg/dL all other times of the day Specimen Anatomical Collection Method Collection Time Receive d Time (Source) Location / / Volume Laterality Blood specimen 08/11/2017 4:07 AM 018 4:07 (specimen) EST AM EST Yonathan Smith MD POINT OF CARE TEST ORDERABLE S Performing Organization Address City/State/[place] [address] POCT Glucose (08/10/2017 11:59 PM EST) athologist Signature POC Glucose 166 65 - 199 [place] mg/dL [facility] Comment: Supplemental ranges: <140 mg/dL before meals <180 mg/dL all other times of the day Specimen Anatomical Collection Method Collection Time Receive d Time (Source) Location / / Volume Laterality Blood specimen 08/10/2017 11:59 8 (specimen) PM EST 11:59 PM EST Yonathan Smith MD POINT OF CARE TEST ORDERABLE S Performing Organization Address City/[facility]/[place] [address] POCT Glucose (08/10/2017 8:12 PM EST) athologist Signature POC Glucose 156 65 - 199 [place] mg/dL [facility] Comment: Supplemental ranges: <140 mg/dL before meals <180 mg/dL all other times of the day Specimen Anatomical Collection Method Collection Time Receive d Time (Source) Location / / Volume Laterality Blood specimen 08/10/2017 8:12 PM 018 8:12 (specimen) EST PM EST Yonathan Smith MD POINT OF CARE TEST ORDERABLE S Performing Organization Address City/State/[place] [address] (ABNORMAL) POCT Glucose (08/10/2017 4:42 PM EST) athologist Signature POC Glucose 211 (H) 65 - 199 [place] mg/dL [facility] Comment: Supplemental ranges: <140 mg/dL before meals <180 mg/dL all other times of the day Specimen Anatomical Collection Method Collection Time Receive d Time (Source) Location / / Volume Laterality Blood specimen 08/10/2017 4:42 PM 018 4:42 (specimen) EST PM EST Yonathan Smith MD POINT OF CARE TEST ORDERABLE S Performing Organization Address City/State/[place] [address] (ABNORMAL) Differential, Automated (08/10/2017 2:30 PM EST) [facility] gist Method Time Signature Neutrophils % 87.6 % [facility] LABORATORY Neutr Abs (ANC) 9.90 (H) 1.70 - [facility] 6.10 [facility] x10(3)/[facility] LABORATORY Lymphocytes % 4.3 % [facility] LABORATORY Lymphocytes Abs 0.5 (L) 0.9 - 3.2 [facility] x10(3)/[facility] LABORATORY Monocytes % 6.0 % [facility] LABORATORY Monocyte Abs 0.7 0.3 - 0.9 [facility] x10(3)/[facility] LABORATORY Eosinophils % 1.1 % [facility] LABORATORY Eosinophils Abs 0.1 0.0 - 0.4 [facility] x10(3)/[facility] LABORATORY Basophils % 0.4 % [facility] LABORATORY Basophils Abs 0.0 0.0 - 0.1 [facility] x10(3)/[facility] LABORATORY Immature Gran % 0.60 % [place] [...] Organization Address City/State/[place] [address] (ABNORMAL) Hemogram (08/10/2017 2:30 PM EST) Analysis Performed At Patho logist Time Signature WBC 11.3 (H) 4.0 - 9.5 [facility] x10(3[facility] LABORATORY RBC 3.13 (L) 4.58 - [place] 5.54 [facility] x10(6)/[facility] LABORATORY Hemoglobin 8.9 (L) 13.7 - [facility] gm/dL [facility] Hematocrit 28.4 (L) 40.5 - [facility] 48.5 % [facility] MCV 90.7 82.9 - [facility] [address] [facility] LABORATORY MCH 28.4 27.5 - [place] [facility] 32.1 pg [facility] MCHC 31.3 (L) 32.0 - [place] [facility] 35.7 gm/dL [facility] Platelets 213 145 - 357 [facility] x10(3)/[facility] LABORATORY RDWSD 53.7 (H) 36.0 - [facility] [address] LABORATORY RDWCV 16.4 (H) 11.4 - [facility] 13.8 % [facility] MPV 8.9 7.6 - 12.9 [facility] LABORATORY nRBC % Auto 0.0 % [facility] LABORATORY nRBC Abs Auto 0.000 0.000 - [facility] SU 0.000 [facility] x10(3)/[facility] LABORATORY Specimen Anatomical Collection Method Collection Time Receive d Time (Source) Location / / Volume Laterality Blood specimen 08/10/2017 2:30 PM 018 2:48 (specimen) EST PM EST Resulting Agency Comment Spec In Lab Yonathan Smith MD HEMATOLOGY ORDERABLES Performing Organization Address City/[facility]/[place] [address] (ABNORMAL) POCT Glucose (08/10/2017 1:50 PM EST) athologist Signature POC Glucose 243 (H) 65 - 199 [facility]/dL [facility] Comment: Supplemental ranges: <140 mg/dL before meals <180 mg/dL all other times of the day Specimen Anatomical Collection Method Collection Time Receive d Time (Source) Location / / Volume Laterality Blood specimen 08/10/2017 1:50 PM 018 1:50 (specimen) EST PM EST Yonathan Smith MD POINT OF CARE TEST ORDERABLE S Performing Organization Address City/State/ZIP Code Phon e Number [address] POCT Glucose (08/10/2017 11:21 AM EST) athologist [facility] POC Glucose 156 65 - 199 [facility] mg/dL [facility] Comment: Supplemental ranges: <140 mg/dL before meals <180 mg/dL all other times of the day Specimen Anatomical Collection Method Collection Time Receive d Time (Source) Location / / Volume Laterality Blood specimen 08/10/2017 11:21 8 (specimen) AM EST 11:21 AM EST Yonathan Smith MD POINT OF CARE TEST ORDERABLE S Performing Organization Address City/State/ZIP Code Phon e Number [address] (ABNORMAL) Differential, Automated (08/10/2017 10:28 AM EST) [facility] gist Method Time Signature Neutrophils % 85.3 % [facility] LABORATORY Neutr Abs (ANC) 9.43 (H) 1.70 - [facility] 6.10 [facility] x10(3)/[facility] L LABORATORY Lymphocytes % 5.5 % [facility] LABORATORY Lymphocytes Abs 0.6 (L) 0.9 - 3.2 [facility] x10(3)/[facility] LABORATORY Monocytes % 5.9 % [facility] LABORATORY Monocyte Abs 0.6 0.3 - 0.9 [facility] x10(3)/[facility] LABORATORY Eosinophils % 2.1 % [facility] LABORATORY Eosinophils Abs 0.2 0.0 - 0.4 [facility] x10(3)/[facility] LABORATORY Basophils % 0.4 % [facility] LABORATORY Basophils Abs 0.0 0.0 - 0.1 [facility] x10(3)/[facility] LABORATORY Immature Gran % 0.80 % [facility] LABORATORY Comment: [...] City/State/ZIP Code Phon e Number [place] [id number] (ABNORMAL) Hemogram (08/10/2017 10:28 AM EST) Analysis Performed At Patho logist Time Signature WBC 11.0 (H) 4.0 - 9.5 [facility] x10(3)/[facility] LABORATORY RBC 3.02 (L) 4.58 - [facility] 5.54 [facility] x10(6)/[facility] LABORATORY Hemoglobin 8.8 (L) 13.7 - [facility] 16.5 gm/dL [facility] Hematocrit 28.1 (L) 40.5 - [facility] 48.5 % [facility] MCV 93.0 82.9 - [facility] 93.1 fL [facility] MCH 29.1 27.5 - [facility] 32.1 pg [facility] MCHC 31.3 (L) 32.0 - [facility] 35.7 gm/dL [facility] Platelets 207 145 - 357 [facility] x10(3)/[facility] LABORATORY RDWSD 55.3 (H) 36.0 - [place] 45.0 [facility] RDWCV 16.4 (H) 11.4 - [place] ZHAOSU 13.8 % [facility] MPV 9.0 7.6 - 12.9 [facility] nRBC % Auto 0.0 % [facility] nRBC Abs Auto 0.000 0.000 - [place] 0.000 [facility] x10(3)/[facility] LABORATORY Specimen Anatomical Collection Method Collection Time Receive d Time (Source) Location / / Volume Laterality Blood specimen 08/10/2017 10:28 8 (specimen) AM EST 10:35 AM EST Resulting Agency Comment Spec In Lab Yonathan Smith MD HEMATOLOGY ORDERABLES Performing Organization Address City/State/[place] [address] VS Angiogram/intervention (vascular) (08/10/2017 [...] 2.5x80 5. Completion RLE angiogram 6. L CATALYST UNIT OPERATOR angiogram 7. 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 L CATALYST UNIT OPERATOR access in the distal L CATALYST UNIT OPERATOR. - Closure device: Mynx Technical Procedure: ?The [...] for a 45cm 5F Destination. V18 and Sebastian a nd QuickCross catheters were used to [...] bifurcation. Access appeared in the distal R CATALYST UNIT OPERATOR. Closure and sheath removal was performed with [...] 2.5x80 5. Completion RLE angiogram 6. L CATALYST UNIT OPERATOR angiogram 7. 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 L CATALYST UNIT OPERATOR access in the distal L CATALYST UNIT OPERATOR. - Closure device: Mynx Technical Procedure: The [...] for a 45cm 5F Destination. V18 and Sebastian a nd QuickCross catheters were used to [...] bifurcation. Access appeared in the distal R CATALYST UNIT OPERATOR. Closure and sheath removal was performed with [...] (ABNORMAL) Differential, Automated (08/10/2017 5:50 AM EST) [facility] Method Time Signature Neutrophils % 80.1 % [facility] LABORATORY Neutr Abs (ANC) 9.01 (H) 1.70 - [facility] 6.10 [facility] x10(3)/[facility] LABORATORY Lymphocytes % 8.8 % [facility] LABORATORY Lymphocytes Abs 1.0 0.9 - 3.2 [facility] x10(3)/[facility] LABORATORY Monocytes % 8.3 % [facility] LABORATORY Monocyte Abs 0.9 0.3 - 0.9 [facility] x10(3)/[facility] LABORATORY Eosinophils % 2.0 % [facility] LABORATORY Eosinophils Abs 0.2 0.0 - 0.4 [facility] x10(3)/[facility] LABORATORY Basophils % 0.4 % [facility] LABORATORY Basophils Abs 0.0 0.0 - 0.1 [facility] x10(3)/[facility] LABORATORY Immature Gran % 0.40 % [...] Organization Address City/State/[place] [address] (ABNORMAL) Hemogram (08/10/2017 5:50 AM EST) Analysis Performed At Patho logist Time Signature WBC 11.3 (H) 4.0 - 9.5 [facility] x10(3)/[facility] LABORATORY RBC 3.15 (L) 4.58 - [facility] 5.54 [facility] x10(6)/[facility] LABORATORY Hemoglobin 8.9 (L) 13.7 - [facility] 16.5 gm/dL [facility] Hematocrit 29.0 (L) 40.5 - [facility] 48.5 % [facility] MCV 92.1 82.9 - [facility] [address] LABORATORY MCH 28.3 27.5 - [facility] 32.1 pg [facility] MCHC 30.7 (L) 32.0 - [facility] 35.7 gm/dL [facility] Platelets 231 145 - 357 [facility] x10(3)/[facility] LABORATORY RDWSD 53.9 (H) 36.0 - [facility] SU [address] [facility] LABORATORY RDWCV 16.2 (H) 11.4 - [facility] SU 13.8 % [facility] MPV 8.7 7.6 - 12.9 [facility] LABORATORY nRBC % Auto 0.0 % [facility] LABORATORY nRBC Abs Auto 0.000 0.000 - [place] [facility] 0.000 [facility] x10(3)/[facility] LABORATORY Specimen Anatomical Collection Method Collection Time Receive d Time (Source) Location / / Volume Laterality Blood specimen 08/10/2017 5:50 AM 018 5:59 (specimen) EST AM EST Resulting Agency Comment Spec In Lab Yonathan Smith MD HEMATOLOGY ORDERABLES Performing Organization Address City/[facility]/[place] [address] (ABNORMAL) Basic Metabolic Panel (non-fasting) (08/10/2017 5:50 AM EST) P athologist Signature Glucose Lvl 135 65 - 199 [facility] mg/dL [facility] Comment: Diabetes: >=200 mg/dL plus symp toms BUN 17 10 - 20 mg/dL [facility] LABORATORY Creatinine 1.05 0.80 - 1.50 mg/dL [facility] LABORATORY Sodium 144 135 - 145 mmol/L [facility] LABORATORY Potassium 4.6 3.5 - 5.0 mmol/L [facility]ATORY Comment: Please note: ??Patients with WBC >100,00 0 may have falsely elevated Potassium levels. ??For accurate Potassium quantif ication in these patients send serum separator tube (gold top) for subsequent determinations. ??Contact the Clinical Chemistry Laboratory if there are any qu estions. Chloride 104 98 - 107 mmol/L [facility] LABORATORY CO2 27 22 - 31 mmol/L [facility] LABORATORY Anion Gap 13 5 - 15 mmol/L [facility] LABORATORY Calcium 8.1 (L) 8.5 - 10.5 mg/dL [facility] LABORATORY Estimated GFR >60 >=60 [facility] LABORATORY Comment: The reported eGFR should be multiplied b y 1.2 for patients. The MDRD is not an appropriate measure o f renal function for patients with body mass extremes or in patients with acute kidney failure. [email or web address] [email or web address] Specimen Anatomical Collection Method Collection Time Receive d Time (Source) Location / / Volume Laterality Blood specimen 08/10/2017 5:50 AM 018 5:59 (specimen) EST AM EST Resulting Agency Comment Spec In Lab Yonathan Smith MD CHEMISTRY ORDERABLES Performing Organization Address City/State/[place] [address] (ABNORMAL) Prothrombin Time (08/10/2017 5:50 AM EST) athologist Signature PT 16.8 (H) 11.8 - 14.0 [facility] LABORATORY INR 1.4 (H) 0.9 - 1.1 [facility] [...] Organization Address City/State/[place] [address] (ABNORMAL) POCT Glucose (08/10/2017 4:01 AM EST) athologist Signature POC Glucose 206 (H) 65 - 199 [facility]dL [facility] Comment: Supplemental ranges: <140 mg/dL before meals <180 mg/dL all other times of the day Specimen Anatomical Collection Method Collection Time Receive d Time (Source) Location / / Volume Laterality Blood specimen 08/10/2017 4:01 AM 018 4:01 (specimen) EST AM EST Yonathan Smith MD POINT OF CARE TEST ORDERABLE S Performing Organization Address City/State/[place] [address] POCT Glucose (08/10/2017 2:01 AM EST) athologist Signature POC Glucose 188 65 - 199 [facility] mg/dL [facility] Comment: Supplemental ranges: <140 mg/dL before meals <180 mg/dL all other times of the day Specimen Anatomical Collection Method Collection Time Receive d Time (Source) Location / / Volume Laterality Blood specimen 08/10/2017 2:01 AM 018 2:01 (specimen) EST AM EST Yonathan Smith MD POINT OF CARE TEST ORDERABLE S Performing Organization Address City/[facility]/[place] [address] (ABNORMAL) POCT Glucose (08/09/2017 11:42 PM EST) athologist Signature POC Glucose 283 (H) 65 - 199 [facility] mg/dL [facility] Comment: Supplemental ranges: <140 mg/dL before meals <180 mg/dL all other times of the day Specimen Anatomical Collection Method Collection Time Receive d Time (Source) Location / / Volume Laterality Blood specimen 08/09/2017 11:42 8 (specimen) PM EST 11:42 PM EST Yonathan Smith MD POINT OF CARE TEST ORDERABLE S Performing Organization Address City/[facility]/Z[place] [address] POCT Glucose (08/09/2017 8:55 PM EST) athologist Signature POC Glucose 182 65 - 199 [facility] mg/dL [facility] Comment: Supplemental ranges: <140 mg/dL before meals <180 mg/dL all other times of the day Specimen Anatomical Collection Method Collection Time Receive d Time (Source) Location / / Volume Laterality Blood specimen 08/09/2017 8:55 PM 018 8:55 (specimen) EST PM EST Yonathan Smith MD POINT OF CARE TEST ORDERABLE S Performing Organization Address City/[facility]/[place] [address] (ABNORMAL) APTT (08/09/2017 6:42 PM EST) athologist Signature PTT 90 (H) 25 - 35 sec [facility] LABORATORY Comment: The recommended therapeutic range for fu ll dose, unfractionated heparin at [facility] is 80 ? 114 [...] Smith MD HEMATOLOGY ORDERABLES Performing Organization Address City/[facility]/ZIP Code Phon e Number [address] POCT Glucose (08/09/2017 4:41 PM EST) athologist Signature POC Glucose 195 65 - 199 [facility] SU mg/dL [facility] Comment: Supplemental ranges: <140 mg/dL before meals <180 mg/dL all other times of the day Specimen Anatomical Collection Method Collection Time Receive d Time (Source) Location / / Volume Laterality Blood specimen 08/09/2017 4:41 PM 018 4:41 (specimen) EST PM EST Yonathan Smith MD POINT OF CARE TEST ORDERABLE S Performing Organization Address City/[facility]/ZIP Code Phon e Number [address] POCT Glucose (08/09/2017 12:29 PM EST) athologist Signature POC Glucose 140 65 - 199 [place] [facility] mg/dL [facility] Comment: Supplemental ranges: <140 mg/dL before meals <180 mg/dL all other times of the day Specimen Anatomical Collection Method Collection Time Receive d Time (Source) Location / / Volume Laterality Blood specimen 08/09/2017 12:29 8 (specimen) PM EST 12:29 PM EST Yonathan Smith MD POINT OF CARE TEST ORDERABLE S Performing Organization Address City/[facility]/ZIP Code Phon e Number [address] POCT Glucose (08/09/2017 9:59 AM EST) athologist Signature POC Glucose 135 65 - 199 [place] [facility] mg/dL [facility] Comment: Supplemental ranges: <140 mg/dL before meals <180 mg/dL all other times of the day Specimen Anatomical Collection Method Collection Time Receive d Time (Source) Location / / Volume Laterality Blood specimen 08/09/2017 9:59 AM 018 9:59 (specimen) EST AM EST Yonathan Smith MD POINT OF CARE TEST ORDERABLE S Performing Organization Address [facility]/ZIP Code Phon e Number [address] Specimen to Pathology (08/09/2017 8:41 AM EST) Specimen Anatomical Collection Method Collection Time Receive d Time (Source) Location / / Volume Laterality AP Specimen 08/09/2017 8:41 AM 8 8:41 EST AM EST Narrative [facility] LABORAT ORY - 08/09/2017 8:41 AM EST Specimen requisition ordered. ??Separate Pathology report to follow Yonathan Smith MD PATHOLOGY/CYTOLOGY ORDERABLE S Performing Organization Address City/[facility]/[place] [address] Surgical Pathology Report (08/09/2017 8:40 AM EST) Component Value Ref Test Analysis Performed At [facility] Range Method Time Signature Surgical [id number] ? Location: [facility]; [facility]; A [facility] Report The signing pathologist has (i) examined the relevant preparation(s) for the [facility] specimen(s) and (ii) rendered or confirmed the diagnosis(es) . HOSPITAL LABORATORY . 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 ?Viable proximal resection margins. Electronically signed by: ??Henrique Saravia MD Verified: ??08/13/2017 ?Pathologist Performed at: ??-[facility] Dept. of Pathology, [place], [place] CLINICAL INFORMATION Specimen Submitted: A - [...] Organization Address City/State/[place] [address] Anaerobic Culture (08/09/2017 8:30 AM EST) [facility] Method Time Signature Anaerobic No anaerobic [facility] Culture organisms [facility] LABORATORY Specimen Anatomical Collection Method Collection Time [...] Organization Address City/State/[place] [address] (ABNORMAL) Abscess/Wound Aspirate Culture (08/09/2017 8:30 AM EST) [facility] Method Time Signature Abscess/Wound Moderate mixed [place] Aspirate bacterial [place] Culture morphotypes [facility] normal LABORATORY cutaneous leroy (A) Gram Stain Rare White Blood Cells [place] Few Gram Positive Cocci in pairs [place] (A) [facility] Organism Gram Positive [place] Cocci in pairs [place] () [facility] Specimen Anatomical Collection Method Collection Time Receive d Time (Source) Location / / Volume Laterality Specimen from STRUCTURE OF RIGHT 08/09/2017 8:30 AM 9:10 abscess FOOT / Unknown EST AM EST (specimen) Comment: SWAB RIGHT GREAT TOE ABSCESS FO R AEROBIC AND ANAEROBIC CULTURES. Resulting Agency Comment Spec In Lab Yonathan Smith MD MICROBIOLOGY - GENERAL ORDER [place] Performing Organization Address City/[facility]/ZIP Code Phon e Number [address] POCT Glucose (08/09/2017 4:28 AM EST) P athologist Signature POC Glucose 128 65 - 199 [facility] mg/dL [facility] Comment: Supplemental ranges: <140 mg/dL before meals <180 mg/dL all other times of the day Specimen Anatomical Collection Method Collection Time Receive d Time (Source) Location / / Volume Laterality Blood specimen 08/09/2017 4:28 AM 018 4:28 (specimen) EST AM EST Yonathan Smith MD POINT OF CARE TEST ORDERABLE S Performing Organization Address City/[facility]/ZIP Code Phon e Number [address] ABORH Recheck Status (08/09/2017 1:10 AM EST) [facility] gist Method Time Signature ABORH Type Completed [facility] LABORATORY Specimen Anatomical Collection Method Collection Time Receive d Time (Source) Location / / Volume Laterality Blood specimen 08/09/2017 1:10 AM 01/15/2 018 1:35 (specimen) EST AM EST Resulting Agency Comment Spec In Lab Yonathan Smith MD BLOOD BANK ORDERABLES Performing Organization Address City/State/ZIP Code Phon e Number [address] Antibody screen (08/09/2017 1:10 AM EST) Patholo gist Method Time Signature Ab Screen Negative [facility] LABORATORY Expires at 08/12/2017 [facility] [id number] on: [facility] Specimen Anatomical Collection Method Collection Time Receive d Time (Source) Location / / Volume Laterality Blood specimen 08/09/2017 1:10 AM 018 1:35 (specimen) EST AM EST Resulting Agency Comment Spec In Lab Yonathan Smith MD BLOOD BANK ORDERABLES Performing Organization Address City/[facility]/[place] [address] ABO/Rh Typing (08/09/2017 1:10 AM EST) P athologist Signature ABORh Type O Pos [facility] LABORATORY Specimen Anatomical Collection Method Collection Time Receive d Time (Source) Location / / Volume Laterality Blood specimen 08/09/2017 1:10 AM 018 1:35 (specimen) EST AM EST Resulting Agency Comment Spec In Lab Yonathan Smith MD BLOOD BANK ORDERABLES Performing Organization Address City/[facility]/[place] [address] (ABNORMAL) APTT (08/09/2017 1:10 AM EST) P athologist Signature PTT 86 (H) 25 - 35 sec [facility] LABORATORY Comment: The recommended therapeutic range for fu ll dose, unfractionated heparin at [facility] is 80 ? 114 [...] Address City/State/ZIP [place] [address] (ABNORMAL) Differential, Automated (08/09/2017 1:10 AM EST) [facility] Method Time Signature Neutrophils % 76.2 % [facility] LABORATORY Neutr Abs (ANC) 8.59 (H) 1.70 - [facility] 6.10 [facility] x10(3)/[facility] LABORATORY Lymphocytes % 11.0 % [facility] LABORATORY Lymphocytes Abs 1.2 0.9 - 3.2 [facility] x10(3)/[facility] LABORATORY Monocytes % 8.4 % [facility] LABORATORY Monocyte Abs 1.0 (H) 0.3 - 0.9 [facility] x10(3)/[facility] LABORATORY Eosinophils % 3.5 % [facility] LABORATORY Eosinophils Abs 0.4 0.0 - 0.4 [facility] x10(3)/[facility] LABORATORY Basophils % 0.5 % [facility] LABORATORY Basophils Abs 0.1 0.0 - 0.1 [facility] x10(3)/[facility] LABORATORY Immature Gran % 0.40 % [...] Organization Address City/State/[place] [address] (ABNORMAL) Hemogram (08/09/2017 1:10 AM EST) Analysis Performed At Patho logist Time Signature WBC 11.3 (H) 4.0 - 9.5 [facility] x10(3)/[facility] LABORATORY RBC 3.47 (L) 4.58 - [place] SU 5.54 [facility] x10(6)/[facility] LABORATORY Hemoglobin 10.0 (L) 13.7 - [facility] 16.5 gm/dL [facility] Hematocrit 31.9 (L) 40.5 - [facility] 48.5 % [facility] MCV 91.9 82.9 - [facility] [address] [facility] LABORATORY MCH 28.8 27.5 - [facility] 32.1 pg [facility] MCHC 31.3 (L) 32.0 - [facility] 35.7 gm/dL [facility] Platelets 234 145 - 357 [facility] x10(3)/[facility] LABORATORY RDWSD 54.0 (H) 36.0 - [facility] [address] [facility] LABORATORY RDWCV 16.2 (H) 11.4 - [facility] 13.8 % [facility] MPV 8.7 7.6 - 12.9 [facility] LABORATORY nRBC % Auto 0.0 % [facility] LABORATORY nRBC Abs Auto 0.000 0.000 - [facility] SU 0.000 [facility] x10(3)/[facility] LABORATORY Specimen Anatomical Collection Method Collection Time Receive d Time (Source) Location / / Volume Laterality Blood specimen 08/09/2017 1:10 AM 018 1:19 (specimen) EST AM EST Resulting Agency Comment Spec In Lab Yonathan Smith MD HEMATOLOGY ORDERABLES Performing Organization Address City/State/ZIP Code Phon e Number [place] [id number]OS[address] (ABNORMAL) Prothrombin Time (08/09/2017 1:10 AM EST) P athologist Signature PT 16.0 (H) 11.8 - 14.0 [facility] LABORATORY INR 1.3 (H) 0.9 - 1.1 [facility] [...] Organization Address City/State/[place] [address] (ABNORMAL) Basic Metabolic Panel (non-fasting) (08/09/2017 1:10 AM EST) athologist Signature Glucose Lvl 108 65 - 199 [facility] mg/dL [facility] Comment: Diabetes: >=200 mg/dL plus symp toms BUN 34 (H) 10 - 20 mg/dL [facility] LABORATORY Creatinine 1.54 (H) 0.80 - 1.50 mg/dL [facility] [...] Chloride 96 (L) 98 - 107 mmol/L [facility] LABORATORY CO2 29 22 - 31 mmol/L [facility] LABORATORY Anion Gap 13 5 - 15 mmol/L [facility] LABORATORY Calcium 8.3 (L) 8.5 - 10.5 mg/dL [facility] LABORATORY Estimated GFR 45 (L) >=60 [facility] LABORATORY Comment: The reported eGFR should be multiplied b y 1.2 for patients. The MDRD is not an appropriate measure o f renal function for patients with body mass extremes or in patients with acute kidney failure. http://Kno/DHnkdep http://Kno/DHMCnkf Specimen Anatomical Collection Method Collection Time Receive d Time (Source) Location / / Volume Laterality Blood specimen 08/09/2017 1:10 AM 018 1:19 (specimen) EST AM EST Resulting Agency Comment Spec In Lab Yonathan Smith MD CHEMISTRY ORDERABLES Performing Organization Address City/[facility]/ZIP Code Phon e Number [address] POCT Glucose (08/09/2017 12:05 AM EST) athologist Signature POC Glucose 128 65 - 199 [facility] mg/dL [facility] Comment: Supplemental ranges: <140 mg/dL before meals <180 mg/dL all other times of the day Specimen Anatomical Collection Method Collection Time Receive d Time (Source) Location / / Volume Laterality Blood specimen 08/09/2017 12:05 8 (specimen) AM EST 12:05 AM EST Yonathan Smith MD POINT OF CARE TEST ORDERABLE S Performing Organization Address City/[facility]/[place] [address] (ABNORMAL) POCT Glucose (08/08/2017 7:36 PM EST) P athologist Signature POC Glucose 215 (H) 65 - 199 [facility] mg/dL [facility] Comment: Supplemental ranges: <140 mg/dL before meals <180 mg/dL all other times of the day Specimen Anatomical Collection Method Collection Time Receive d Time (Source) Location / / Volume Laterality Blood specimen 08/08/2017 7:36 PM 018 7:36 (specimen) EST PM EST Yonathan Smith MD POINT OF CARE TEST ORDERABLE S Performing Organization Address City/State/[place] [address] (ABNORMAL) POCT Glucose (08/08/2017 6:23 PM EST) athologist Signature POC Glucose 216 (H) 65 - 199 [facility] mg/dL [facility] Comment: Supplemental ranges: <140 mg/dL before meals <180 mg/dL all other times of the day Specimen Anatomical Collection Method Collection Time Receive d Time (Source) Location / / Volume Laterality Blood specimen 08/08/2017 6:23 PM 018 6:23 (specimen) EST PM EST Yonathan Smith MD POINT OF CARE TEST ORDERABLE S Performing Organization Address City/[facility]/ZIP Code [facility] [place] [address] (ABNORMAL) APTT (08/08/2017 6:00 PM EST) athologist Signature PTT 97 (H) 25 - 35 sec [facility] Comment: The recommended therapeutic range for fu ll dose, unfractionated heparin at [facility] is 80 ? 114 [...] Organization Address City/State/[place] [address] POCT Glucose (08/08/2017 4:42 PM EST) athologist Signature POC Glucose 78 65 - 199 [facility] mg/dL [facility] Comment: Supplemental ranges: <140 mg/dL before meals <180 mg/dL all other times of the day Specimen Anatomical Collection Method Collection Time Receive d Time (Source) Location / / Volume Laterality Blood specimen 08/08/2017 4:42 PM 018 4:42 (specimen) EST PM EST Yonathan Smith MD POINT OF CARE TEST ORDERABLE S Performing Organization Address City/State/ZIP Code Phon e Number [address] (ABNORMAL) POCT Glucose (08/08/2017 4:01 PM EST) athologist Signature POC Glucose 58 (L) 65 - 199 [facility] mg/dL [facility] Comment: Supplemental ranges: <140 mg/dL before meals <180 mg/dL all other times of the day Specimen Anatomical Collection Method Collection Time Receive d Time (Source) Location / / Volume Laterality Blood specimen 08/08/2017 4:01 PM 018 4:01 (specimen) EST PM EST Yonathan Smith MD POINT OF CARE TEST ORDERABLE S Performing Organization Address City/[facility]/[place] [address] POCT Glucose (08/08/2017 11:51 AM EST) athologist Signature POC Glucose 90 65 - 199 [facility] mg/dL [facility] Comment: Supplemental ranges: <140 mg/dL before meals <180 mg/dL all other times of the day Specimen Anatomical Collection Method Collection Time Receive d Time (Source) Location / / Volume Laterality Blood specimen 08/08/2017 11:51 8 (specimen) AM EST 11:51 AM EST Yonathan Smith MD POINT OF CARE TEST ORDERABLE S Performing Organization Address City/State/[place] [address] (ABNORMAL) APTT (08/08/2017 10:27 AM EST) athologist Signature PTT 64 (H) 25 - 35 sec [facility] Comment: The recommended therapeutic range for fu ll dose, unfractionated heparin at [facility] is 80 ? 114 [...] Organization Address City/State/[place] [address] POCT Glucose (08/08/2017 8:02 AM EST) athologist Signature POC Glucose 178 65 - 199 [facility] mg/dL [facility] Comment: Supplemental ranges: <140 mg/dL before meals <180 mg/dL all other times of the day Specimen Anatomical Collection Method Collection Time Receive d Time (Source) Location / / Volume Laterality Blood specimen 08/08/2017 8:02 AM 018 8:02 (specimen) EST AM EST Yonathan Smith MD POINT OF CARE TEST ORDERABLE S Performing Organization Address City/[facility]/[place] [address] (ABNORMAL) APTT (08/08/2017 4:51 AM EST) athologist Signature PTT >160 25 - 35 [facility] (Critical) sec [facility] Comment: Called by: HOWARD, Read back by: Melba Jaramillo, Date/Time:08/08/17 05:43. The recommended therapeutic range for fu ll dose, unfractionated heparin [place] [facility] is 80 ? 114 [...] Smith MD HEMATOLOGY ORDERABLES Performing Organization Address City/[facility]/[place] [address] (ABNORMAL) Differential, Automated (08/08/2017 4:51 AM EST) Patholo gist Method Time Signature Neutrophils % 77.9 % [facility] LABORATORY Neutr Abs (ANC) 8.17 (H) 1.70 - [facility] 6.10 [facility] x10(3)/[facility] LABORATORY Lymphocytes % 10.3 % [facility] LABORATORY Lymphocytes Abs 1.1 0.9 - 3.2 [facility] x10(3)/[facility] LABORATORY Monocytes % 7.0 % [facility] LABORATORY Monocyte Abs 0.7 0.3 - 0.9 [facility] x10(3)/[facility] LABORATORY Eosinophils % 3.6 % [facility] LABORATORY Eosinophils Abs 0.4 0.0 - 0.4 [facility] x10(3)/[facility] LABORATORY Basophils % 0.5 % [facility] LABORATORY Basophils Abs 0.0 0.0 - 0.1 [facility] x10(3)/[facility] LABORATORY Immature Gran % 0.70 % [facility] LABORATORY Comment: [...] Organization Address City/State/[place] [address] (ABNORMAL) Hemogram (08/08/2017 4:51 AM EST) Analysis Performed At Patho logist Time Signature WBC 10.5 (H) 4.0 - 9.5 [facility] x10(3)/[facility] LABORATORY RBC 3.27 (L) 4.58 - [place] SU 5.54 [facility] x10(6)/[facility] LABORATORY Hemoglobin 9.3 (L) 13.7 - [facility] 16.5 gm/dL [facility] Hematocrit 30.3 (L) 40.5 - [facility] 48.5 % [facility] MCV 92.7 82.9 - [facility] [address] [facility] LABORATORY MCH 28.4 27.5 - [place] 32.1 pg [facility] MCHC 30.7 (L) 32.0 - [facility] Platelets 252 145 - 357 [facility] x10(3)/[facility] LABORATORY RDWSD 54.6 (H) 36.0 - [facility] [address] LABORATORY RDWCV 16.2 (H) 11.4 - [facility] 13.8 % [facility] MPV 9.1 7.6 - 12.9 [facility] LABORATORY nRBC % Auto 0.0 % [facility] LABORATORY nRBC Abs Auto 0.000 0.000 - [facility] 0.000 [facility] x10(3)/[facility] LABORATORY Specimen Anatomical Collection Method Collection Time Receive d Time (Source) Location / / Volume Laterality Blood specimen 08/08/2017 4:51 AM 018 5:14 (specimen) EST AM EST Resulting Agency Comment Spec In Lab Yonathan Smith MD HEMATOLOGY ORDERABLES Performing Organization Address City/State/[place] [address] (ABNORMAL) Prothrombin Time (08/08/2017 4:51 AM EST) P athologist Signature PT 18.1 (H) 11.8 - 14.0 [facility] LABORATORY INR 1.5 (H) 0.9 - 1.1 [facility] [...] Organization Address City/State/[place] [address] (ABNORMAL) Basic Metabolic Panel (non-fasting) (08/08/2017 4:51 AM EST) P athologist Signature Glucose Lvl 229 (H) 65 - 199 [facility] mg/dL [facility] Comment: Diabetes: >=200 mg/dL plus symp toms BUN 35 (H) 10 - 20 mg/dL [facility] LABORATORY Creatinine 1.57 (H) 0.80 - 1.50 mg/dL [facility] LABORATORY Sodium 136 135 - 145 mmol/L [facility] [...] Chloride 94 (L) 98 - 107 mmol/L [facility] LABORATORY CO2 25 22 - 31 mmol/L [facility] LABORATORY Anion Gap 17 (H) 5 - 15 mmol/L [facility] LABORATORY Calcium 7.9 (L) 8.5 - 10.5 mg/dL [facility] LABORATORY Estimated GFR 44 (L) >=60 [facility]ORATORY Comment: The reported eGFR should be multiplied b y 1.2 for patients. The MDRD is not an appropriate measure o f renal function for patients with body mass extremes or in patients with acute kidney failure. http://Interhyp[employer]/DHnkdep http://Interhyp.[employer]/DHMCnkf Specimen Anatomical Collection Method Collection Time Receive d Time (Source) Location / / Volume Laterality Blood specimen 08/08/2017 4:51 AM 018 5:14 (specimen) EST AM EST Resulting Agency Comment Spec In Lab Yonathan Smith MD CHEMISTRY ORDERABLES Performing Organization Address City/State/ZIP Code Phon e Number [address] POCT Glucose (08/08/2017 4:20 AM EST) athologist Signature POC Glucose 193 65 - 199 [facility] mg/dL [facility] Comment: Supplemental ranges: <140 mg/dL before meals <180 mg/dL all other times of the day Specimen Anatomical Collection Method Collection Time Receive d Time (Source) Location / / Volume Laterality Blood specimen 08/08/2017 4:20 AM 018 4:20 (specimen) EST AM EST Yonathan Smith MD POINT OF CARE TEST ORDERABLE S Performing Organization Address City/[facility]/[place] [address] POCT Glucose (08/07/2017 11:11 PM EST) athologist Signature POC Glucose 124 65 - 199 [facility] mg/dL [facility] Comment: Supplemental ranges: <140 mg/dL before meals <180 mg/dL all other times of the day Specimen Anatomical Collection Method Collection Time Receive d Time (Source) Location / / Volume Laterality Blood specimen 08/07/2017 11:11 8 (specimen) PM EST 11:11 PM EST Yonathan Smith MD POINT OF CARE TEST ORDERABLE S Performing Organization Address City/[facility]/ZIP Code Phon e Number [address] (ABNORMAL) APTT (08/07/2017 10:18 PM EST) athologist Signature PTT 114 (H) 25 - 35 sec [facility] Comment: The recommended therapeutic range for fu ll dose, unfractionated heparin at [facility] is 80 ? 114 [...] Smith MD HEMATOLOGY ORDERABLES Performing Organization Address City/[facility] Phon e Number [address] POCT Glucose (08/07/2017 8:10 PM EST) athologist Signature POC Glucose 140 65 - 199 [facility] mg/dL [facility] Comment: Supplemental ranges: <140 mg/dL before meals <180 mg/dL all other times of the day Specimen Anatomical Collection Method Collection Time Receive d Time (Source) Location / / Volume Laterality Blood specimen 08/07/2017 8:10 PM 018 8:10 (specimen) EST PM EST Yonathan Smith MD POINT OF CARE TEST ORDERABLE S Performing Organization Address City/[facility] Code Phon e Number [address] POCT Glucose (08/07/2017 5:27 PM EST) athologist Signature POC Glucose 187 65 - 199 [facility] Comment: Supplemental ranges: <140 mg/dL before meals <180 mg/dL all other times of the day Specimen Anatomical Collection Method Collection Time Receive d Time (Source) Location / / Volume Laterality Blood specimen 08/07/2017 5:27 PM 018 5:27 (specimen) EST PM EST Yonathan Smith MD POINT OF CARE TEST ORDERABLE S Performing Organization Address City/[facility]/ZIP Code Phon e Number [address] POCT Glucose (08/07/2017 3:29 PM EST) athologist Signature POC Glucose 86 65 - 199 [facility] mg/dL [facility] Comment: Supplemental ranges: <140 mg/dL before meals <180 mg/dL all other times of the day Specimen Anatomical Collection Method Collection Time Receive d Time (Source) Location / / Volume Laterality Blood specimen 08/07/2017 3:29 PM 018 3:29 (specimen) EST PM EST Yonathan Smith MD POINT OF CARE TEST ORDERABLE S Performing Organization Address City/[facility] [place] [address] (ABNORMAL) APTT (08/07/2017 2:50 PM EST) athologist Signature PTT 60 (H) 25 - 35 sec [facility] Comment: The recommended therapeutic range for fu ll dose, unfractionated heparin at [facility] is 80 ? 114 [...] Smith MD HEMATOLOGY ORDERABLES Performing Organization Address City/[facility]/ZIP [facility] [place] [address] (ABNORMAL) POCT Glucose (08/07/2017 2:23 PM EST) athologist Signature POC Glucose 55 (L) 65 - 199 [facility] mg/dL [facility] Comment: Supplemental ranges: <140 mg/dL before meals <180 mg/dL all other times of the day Specimen Anatomical Collection Method Collection Time Receive d Time (Source) Location / / Volume Laterality Blood specimen 08/07/2017 2:23 PM 018 2:23 (specimen) EST PM EST Yonathan Smith MD POINT OF CARE TEST ORDERABLE S Performing Organization Address City/[facility]/Z[place] [address] [facility] LAB[address]ORY Drive POCT Glucose (08/07/2017 12:08 PM EST) P athologist Signature POC Glucose 77 65 - 199 [facility] mg/dL [facility] Comment: Supplemental ranges: <140 mg/dL before meals <180 mg/dL all other times of the day Specimen Anatomical Collection Method Collection Time Receive d Time (Source) Location / / Volume Laterality Blood specimen 08/07/2017 12:08 8 (specimen) PM EST 12:08 PM EST Yonathan Smith MD POINT OF CARE TEST ORDERABLE S Performing Organization Address City/State/ZIP Code Phon e Number [place] [id number] [facility] LABORATORY Drive (ABNORMAL) Differential, Automated (08/07/2017 7:30 AM EST) Patholo gist Method Time Signature Neutrophils % 73.8 % [facility] LABORATORY Neutr Abs (ANC) 7.17 (H) 1.70 - [facility] 6.10 [facility] x10(3)/[facility] LABORATORY Lymphocytes % 12.2 % [facility] LABORATORY Lymphocytes Abs 1.2 0.9 - 3.2 [facility] x10(3)/[facility] LABORATORY Monocytes % 9.0 % [facility] LABORATORY Monocyte Abs 0.9 0.3 - 0.9 [facility] x10(3)/[facility] LABORATORY Eosinophils % 3.9 % [facility] LABORATORY Eosinophils Abs 0.4 0.0 - 0.4 [facility] x10(3)/[facility] [facility] LABORATORY Basophils % 0.6 % [facility] LABORATORY Basophils Abs 0.1 0.0 - 0.1 [facility] x10(3)/[facility] LABORATORY Immature Gran % 0.50 % [...] Organization Address City/State/[place] [address] (ABNORMAL) Hemogram (08/07/2017 7:30 AM EST) Analysis Performed At Patho logist Time Signature WBC 9.7 (H) 4.0 - 9.5 [facility] x10(3)/[facility] LABORATORY RBC 3.54 (L) 4.58 - [facility] 5.54 [facility] x10(6)/[facility] LABORATORY Hemoglobin 9.9 (L) 13.7 - [facility] 16.5 gm/dL [facility] LABORATORY Hematocrit 32.3 (L) 40.5 - [facility] 48.5 % [facility] LABORATORY MCV 91.2 82.9 - [facility] LABORATORY MCH 28.0 27.5 - [facility] SU 32.1 pg [facility] LABORATORY MCHC 30.7 (L) 32.0 - [facility] 35.7 gm/dL [facility] LABORATORY Platelets 312 145 - 357 [facility] x10(3)/[facility] LABORATORY RDWSD 53.2 (H) 36.0 - [facility] SU 45.[address] [facility] LABORATORY RDWCV 16.0 (H) 11.4 - [facility] SU 13.8 % [facility] LABORATORY MPV 8.9 7.6 - 12.9 [facility] LABORATORY nRBC % Auto 0.0 % [facility] LABORATORY nRBC Abs Auto 0.000 0.000 - [facility] Nominum 0.000 [facility] x10(3)/[facility] LABORATORY Specimen Anatomical Collection Method Collection Time Receive d Time (Source) Location / / Volume Laterality Blood specimen 08/07/2017 7:30 AM 018 7:45 (specimen) EST AM EST Resulting Agency Comment Spec In Lab Yonathan Smith MD HEMATOLOGY ORDERABLES Performing Organization Address City/State/[place] [address] (ABNORMAL) Basic Metabolic Panel (non-fasting) (08/07/2017 7:30 AM EST) athologist Signature Glucose Lvl 80 65 - 199 [facility] mg/dL [facility] LABORATORY Comment: Diabetes: >=200 mg/dL plus symp toms BUN 31 (H) 10 - 20 mg/dL [facility] LABORATORY Creatinine 1.22 0.80 - 1.50 mg/dL [facility] [...] estions. Chloride 99 98 - 107 mmol/L [facility] LABORATORY CO2 29 22 - 31 mmol/L [facility] LABORATORY Anion Gap 12 5 - 15 mmol/L [facility] LABORATORY Calcium 8.5 8.5 - 10.5 mg/dL [facility] LABORATORY Estimated GFR 59 (L) >=60 [facility] LABORATORY Comment: The reported eGFR should be multiplied b y 1.2 for patients. The MDRD is not an appropriate measure o f renal function for patients with body mass extremes or in patients with acute kidney failure. http://Kno/DHnkdep http://Kno/DHMCnkf Specimen Anatomical Collection Method Collection Time Receive d Time (Source) Location / / Volume Laterality Blood specimen 08/07/2017 7:30 AM 018 7:45 (specimen) EST AM EST Resulting Agency Comment Spec In Lab Yonathan Smith MD CHEMISTRY ORDERABLES Performing Organization Address City/[facility]/ZIP Code Phon e Number [address] POCT Glucose (08/07/2017 7:27 AM EST) athologist Signature POC Glucose 81 65 - 199 [facility] mg/dL [facility] LABORATORY Comment: Supplemental ranges: <140 mg/dL before meals <180 mg/dL all other times of the day Specimen Anatomical Collection Method Collection Time Receive d Time (Source) Location / / Volume Laterality Blood specimen 08/07/2017 7:27 AM 018 7:27 (specimen) EST AM EST Yonathan Smith MD POINT OF CARE TEST ORDERABLE S Performing Organization Address [facility] Phon e Number [address] APTT (08/07/2017 7:04 AM EST) athologist [facility] PTT 34 25 - 35 sec [facility] LABORATORY Comment: The recommended therapeutic range for fu ll dose, unfractionated heparin at [facility] is 80 ? 114 [...] Smith MD HEMATOLOGY ORDERABLES Performing Organization Address City/[facility]/ZIP [facility] [place] [address] (ABNORMAL) Prothrombin Time (08/07/2017 7:04 AM EST) athologist [facility] PT 17.3 (H) 11.8 - 14.0 [facility] LABORATORY INR 1.4 (H) 0.9 - 1.1 [facility] Smith MD HEMATOLOGY ORDERABLES Performing Organization Address City/[facility]/ZIP Code Phon e Number [address] POCT Glucose (08/07/2017 4:03 AM EST) athologist Signature POC Glucose 93 65 - 199 [facility] mg/dL [facility] LAB[facility]ORY Comment: Supplemental ranges: <140 mg/dL before meals <180 mg/dL all other times of the day Specimen Anatomical Collection Method Collection Time Receive d Time (Source) Location / / Volume Laterality Blood specimen 08/07/2017 4:03 AM 018 4:03 (specimen) EST AM EST Yonathan Smith MD POINT OF CARE TEST ORDERABLE S Performing Organization Address City/[facility]/ZIP Code Phon e Number [address] POCT Glucose (08/07/2017 12:04 AM EST) athologist Signature POC Glucose 107 65 - 199 [facility] mg/dL [facility] Comment: Supplemental ranges: <140 mg/dL before meals <180 mg/dL all other times of the day Specimen Anatomical Collection Method Collection Time Receive d Time (Source) Location / / Volume Laterality Blood specimen 08/07/2017 12:04 8 (specimen) AM EST 12:04 AM EST Yonathan Smith MD POINT OF CARE TEST ORDERABLE S Performing Organization Address City/[facility]/[place] [address] POCT Glucose (08/06/2017 7:56 PM EST) P athologist Signature POC Glucose 178 65 - 199 [facility] mg/dL [facility] LABORATORY Comment: Supplemental ranges: <140 mg/dL before meals <180 mg/dL all other times of the day Specimen Anatomical Collection Method Collection Time Receive d Time (Source) Location / / Volume Laterality Blood specimen 08/06/2017 7:56 PM 018 7:56 (specimen) EST PM EST Yonathan Smith MD POINT OF CARE TEST ORDERABLE S Performing Organization Address City/State/[place] [address] [id number] (08/06/2017 2:32 PM EST) Component Value Ref Test Analysis Performed At Patholo gist Range Method Time Signature VB Text Department: Vascular Surgery Lab VASCUBASE Report Patient: [id number] (GREGORY HOANG) CPT: 3532411 ICD10: I99.8 Referring Physician: YONATHAN SMITH ?? Indications: Patient with embolic debris s/p cath, now with blue toes on right (severe pain) and mild pain on left, needs amputation, ? rtent ayala potential Diabetes mellitus: No ICD10 Diagnosis [...]
Routine documented in this encounter Care Teams Cake Maker Relationship Specialty Start Date End Date Lovely Vicente MD PCP - General 04/16/[address] [place] [address] [address] [place] [address] documented as of this encounter
--- OUTSIDE RECORDS SUMMARY | 2022-02-16 08:16 | XMS_ITS | Encounter Summary ---
:1945 [place] [address] Care Team Providers Name Role Phone Lovely Vicente MD Primary Care Provider Encounter Details Date Type Department Care Team Description 08/09/2017 Clinical Support Same Day at [facility] Canceled (D-SCHED ERROR [facility] / CORRECT ION ) [place] [address] Social History Tobacco Use Types Packs/Day [...] Liz Poole PA [facility] er Cardiology Dept [place], [place] [address] (Wo rk) 03/26/2022 Office Visit Cardiology Vitaliy Nobles MD [facility] ER CARDIOLOGY [place], [place] [address] (Wo rk) documented as of this encounter Procedures Procedure Name Priority Date/Time Associated Diagnosis Comme nts LIVE OUT NANNY 08/09/2017 12:00 AM Resul ts for this SCAN EST procedure are i n the results section. documented in this encounter Results SCAN DOC: LIVE OUT NANNY (08/09/2017 12:00 AM EST) Narrative 08/09/2017 12:00 AM EST This result has an attachment that is no t available. Ordered by an unspecified provider. Scanning Provider MEDIA MGR SCAN EXT ORDR/RSLT documented in this encounter Visit Diagnoses Not on filedocumented in this encounter Care Teams Section Cutter Relationship Specialty Start Date End Date Lovely Vicente MD PCP - General 04/16/15 [facility] [address] [place] [address] documented as of this encounter
--- OUTSIDE RECORDS SUMMARY | 2022-02-16 08:16 | XMS_ITS | Encounter Summary ---
:1945 Author Organization [facility] [place] [address] Care Team Providers Name Role Phone Lovely Vicente MD Primary Care Provider Reason for Visit Auth/Cert Specialty Diagnoses / Procedures Referred By Contact Refer red To Contact Diagnoses Critical lower limb ischemia CELLULITIS RT FOOT Procedures EMERGENCY Referral ID Status Reason Start Date Expiration Date Visits Requ ested Visits Authorized [id number] 1 1 Encounter Details Date Type Department Care Team Description 08/11/2017 Surgery Main Operating Room Yonathan Smith (M SURG) DRESSING CHANGE Barbara Ocampo MD (FOR OTHER THAN IVAN) [facility] UNDER ANES. 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 Patient [...] Dorsalis Pedis (Ankle) Artery ?132 ? 0.94 ??Yoakum-Biphasic ? Posterior Tibial (Ankle) Artery ??154 ? 1.10 ??Yoakum-Biphasic ? Fourth Toe ? 67 ?0.48 ?? [...] Discharge Conditions/Prognosis: Good Discharge to: [facility] Rehab Discharge Medications: Your Medications New Medications [...] For any problems or questions please call [phone] ZELDA Smith, tank car inspector Nurse Clinician For issues on weeknights after 5pm and weekends please call [phone] and ask for the Vascular Fellow guard immigration. General Instructions None Future Appointments and Orders Future Appointments Provider Department Dept Phone 08/26/2017 4:00 PM Aurelia Rivera PA [facility] [place] [phone] 09/07/2017 3:00 PM LAB, THREE L Lab 3L [facility] [phone] 09/07/2017 4:00 PM Luz Prescott MD Endocrinology [facility] [place] [phone] 09/09/2017 8:00 AM Barbra Soares APRN Pain Management [facility] [place] [phone] Please bring a list of your current [...] For any problems or questions please call [phone] ZELDA Smith, tank car inspector Nurse Clinician For issues on weeknights after 5pm and weekends please call [phone] and ask for the Vascular Fellow guard immigration. documented in this encounter Medications at Time [...] Note Patient Destination: [facility] ([facility] [address] [place] [address] Transportation: with (at bedside) Time of Discharge: by 12 noon Level of Care: swing Patient Aware: yes Family Notified: yes Md to call report to: Yissel Quintero AUTOMATIC VULCANIZING OPERATOR already called RN to call report to: [phone] Shirin Wolf Office of Care Management Pager [phone] Shirin Wagner RN - 08/16/2017 10:50 AM EST [facility] has offered pt swing bed. Pt and accept bed. will transport via car. AUTOMATIC VULCANIZING OPERATOR Yissel Quintero aware; d/c paperwork will be completed by 12 noon. [facility] requests pt arrival by 1400 today; AUTOMATIC VULCANIZING OPERATOR, RN, and family aware. AUTOMATIC VULCANIZING OPERATOR called [facility] and was told that they prefer pt to arrive with wound vac dressing applied but clamped. AUTOMATIC VULCANIZING OPERATOR applied new wound vac dressing. RN has [facility] number to call report. PASSR completed; AUTOMATIC VULCANIZING OPERATOR paged to request provider signature in highlighted space. Indigo from [facility] notified via email that home wound vac now cancelled; STORES has picked up from room and order cancelled. Packet started and provided to community service organization director. Medicare important message explained to patient, patient signed. Copy provided to patient and signature page to OCM for inclusion in pt EMR. Radha Georges - 08/16/2017 10:34 AM EST Office of Care Management/Brasswind Instrument Repairer Patient Name: Gregory Hoang : 1945 Patient has been offered a swing bed at [facility]. The patient will be transported by private transportation. No MD to MD report necessary Please call Nursing Report to [phone], ask for buffing line set up worker. Info to accompany patient: Narcotic Prescriptions Copies of Medication Administration Records and IV sheets for past 10 days. Plan: Brasswind Instrument Repairer will be available to the patient and Surgical First Assistant-RN and/or Polls Or Surveys Interviewer for further assistance. Patient will be discharged to: [facility] [address] [place] [address] [id number] Radha Powers, Brasswind Instrument Repairer Mira Black, VAMSI - 08/15/2017 10:05 PM EST [address] Flores to ask if he wanted to hold metoprolol dose. BP 95/58. OK to hold this dose Courtney Brito - 08/15/2017 3:26 PM EST Office of Care Management(OCM)/Brasswind Instrument Repairer(RS)/ D/C Planning re : Patient is medically ready for d/c today. RS has been in contact with [facility] to see if they could offer a bed. [facility] is still reviewing the case and need their MD to review chart prior to accepting or declining. OCM team needs to check in with [place] tomorrow to check on status. 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 Vac in [...] would like information about patient's referral to: [facility] PHONE: [phone] FAX: [phone] CM spoke with RS who said that [...] would be accepted to acute rehab at [facility] as Dr. Smith had recommended . [...] rehab. Await recommendations from PT. Covering pager #[phone]. 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 Personnel Coordinator Kaitlin Saha, RN Pager #[phone] Payam Rosales - 08/13/2017 2:37 PM EST Storeperson Encounter Note Patient Name: Gregory Hoang : [id number] MR#: [id number] Admit Date: 08/06/2017 1:41 PM Hospital Day 7 days Narrative: Visited to introduce and assess acceptance of Storeperson services. Pt was awake, alert, oriented and in chair and family was there. Assessment:Patient coping positively with stresses of illness/hospitalization at this time. Pt says that he is hoping to get better and his family was there. Pt says that he has family care and supportand taking one day at time. Intervention and Outcome: Provided emotional support and encouraging presence. 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 A letter describing our affiliations was reviewed with them and theywere educated about their right to choose where referrals are placed. Patient requests referral to [facility]. PHONE: [phone] FAX: [phone]. And Home NPWT (Negative Pressure Wound Therapy) aka wound vac device made available to pt. Serial # confirmed. Reviewed [facility] Proof of Delivery/Assignment of Benefits Statement(POD/AOB) Form w patient or authorized agent signing on behalf of patient. Copy of POD/AOB provided to pt and other copy faxed to [employer] @ fax# [phone] Expected date of discharge: 08/12/2017. 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 Address: [address] [place] [address] [place] [address] (home) Mobile: Telephone Information: Referring Provider: No [...] SETUP performed by Manny Mcknight MD at [facility] ??? PRO CABG, ARTERIAL, SINGLE N/A 07/07/2017 @CABG, USING ARTERIAL GRAFT;SINGLE ARTERIAL GRAFT (WRVU 33.75) performed by Yuan Retana MD at [facility] ??? PRO CABG, ARTERY-VEIN, TWO N/A 07/07/2017 @CABG, TWO VENOUS GRAFTS & ARTERIAL GRAFT (WRVU 7.93) performed by Yuan Retana MD at [facility] ??? PRO COLONOSCOPY, REMV LESN, SNARE 01/16/2014 COLONOSCOPY, POLYPECTOMY, REMOVAL LESION BY SNARE performed by Nohemi Jaimes MD at [facility] ENDOSCOPY ??? PRO ENDOSCOPY W/VIDEO-ASST VEIN HARVEST, CABG Right 07/07/2017 ENDOSCOPIC HARVEST VEIN(S) FOR CABG (WRVU 0.31) performed by Yuan Retana MD at [facility] ??? 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 Heparin gtt continues to run. [...] of : 1945 AGE 72 y.o. Address: [address] [place] [address] [place] [address] (home) Mobile: Telephone Information: Referring Provider: No [...] SETUP performed by Manny Mcknight MD at [facility] ??? PRO CABG, ARTERIAL, SINGLE N/A 07/07/2017 @CABG, USING ARTERIAL GRAFT;SINGLE ARTERIAL GRAFT (WRVU 33.75) performed by Yuan Retana MD at [facility] ??? PRO CABG, ARTERY-VEIN, TWO N/A 07/07/2017 @CABG, TWO VENOUS GRAFTS & ARTERIAL GRAFT (WRVU 7.93) performed by Yuan Retana MD at [facility] OR ??? PRO COLONOSCOPY, REMV LESN, SNARE 01/16/2014 COLONOSCOPY, POLYPECTOMY, REMOVAL LESION BY SNARE performed by Nohemi Jaimes MD at [facility] ENDOSCOPY ??? PRO ENDOSCOPY W/VIDEO-ASST VEIN HARVEST, CABG Right 07/07/2017 ENDOSCOPIC HARVEST VEIN(S) FOR CABG (WRVU 0.31) performed by Yuan Retana MD at [facility] ??? 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 Vascular resident guard immigration and will forward result to the team prior to rounds. 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 Patient [...] SETUP performed by Manny Mcknight MD at [facility] ??? PRO CABG, ARTERIAL, SINGLE N/A 07/07/2017 @CABG, USING ARTERIAL GRAFT;SINGLE ARTERIAL GRAFT (WRVU 33.75) performed by Yuan Retana MD at [facility] ??? PRO CABG, ARTERY-VEIN, TWO N/A 07/07/2017 @CABG, TWO VENOUS GRAFTS & ARTERIAL GRAFT (WRVU 7.93) performed by Yuan Retana MD at [facility] ??? PRO COLONOSCOPY, REMV LESN, SNARE 01/16/2014 COLONOSCOPY, POLYPECTOMY, REMOVAL LESION BY SNARE performed by Nohemi Jaimes MD at [facility] ENDOSCOPY ??? PRO ENDOSCOPY W/VIDEO-ASST VEIN HARVEST, CABG Right 07/07/2017 ENDOSCOPIC HARVEST VEIN(S) FOR CABG (WRVU 0.31) performed by Yuan Retana MD at [facility] ??? PRO THYROIDECTOMY 03/28/2013 THYROIDECTOMY, TOTAL OR COMPLETE performed by Manny Mcknight MD at [facility] Functional Status/Social Hx: Quit smoking [...] left blue toes with CTA showing R TUBE DISPATCHER pseudoaneurysm (now thrombosed) and occluded ATs bilaterally. [...] status documented in this encounter Procedure Notes Stveen Zhang MD - 08/10/2017 10:03 AM EST Vascular Surgery Procedure Note Pre-procedure Dx: Blue toe syndrome Post-procedure Dx: Occluded R AT Procedure: 1. Left femoral arterial access 2. RLE angiogram 3. Selective catheterization of R plantar artery 4. Balloon angioplasty of R PT with Eleazar 2.5x80 5. Completion RLE angiogram 6. L TUBE DISPATCHER angiogram 7. 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 - L TUBE DISPATCHER angriogram demonstrated: High femoral bifurcation over the proximal half of the femoral head. L TUBE DISPATCHER access in the distal L TUBE DISPATCHER. - Closure device: Mynx Technical Procedure: The [...] for a 45cm 5F Destination. V18 and [place] and QuickCross catheters were used to select [...] 5F. A stationed picture of the L TUBE DISPATCHER was performed as the patient was noted to have a very high bifurcation. Access appeared in the distal R TUBE DISPATCHER. Closure and sheath removal was performed with [...] PM EST 1440 report called to 5 north reading nurse Tessa AGUSTIN documented in this encounter Miscellaneous Notes Plan of Care - Dory Truong RN - 08/16/2017 10:51 AM EST Problem: Patient Care Overview Goal: Plan of Care Review Outcome: Outcome (s) achieved Date Met: 08/16/17 08/14/17 1939 08/16/17 7941 Coping/Psychosocial Plan Of Care Reviewed With -- patient Plan of Care Review Progress improving -- Discussed discharge instructions with pt and pt's spouse. Discharge to [facility]. Goal: Individualization & Mutuality Outcome: Outcome (s) [...] sit/sit to supine -- Bed Mobility Goal, Lawrence Level independent -- Bed Mobility Goal, Date [...] days -- Transfer Training Goal, Activity Type qdc-sp-wloce/ghhvj-it-jqh -- Transfer Train Goal, Lawrence Level conditional independence -- Transfer Train Goal, [...] call cabello within reach, Hourly rounding by RN/UNIT AIDE. Bed alarm / Chair alarm. Patient-specific fall [...] Smith MD - 08/15/2017 6:28 PM EST [facility] Operative Note Patient Name: Gregory Hoang : [id number] MR#: [id number] Case Date: 08/09/2017 Surgeon: Surgeon(s) and Role: [...] 2.5x80 5. Completion RLE angiogram 6. L TUBE DISPATCHER angiogram 7. Mynx closure Precautions/Restrictions: fall, sternal [...] feet/ bed -> bathroom). Anticipated Discharge Disposition: fpc facility, other (see comments) (or swing bed) Pager: [phone] BASSAM ELIAS, PT 08/14/2017 Inpatient Physical Therapy [...] to Achieve by discharge Gait Training Goal, Lawrence Level conditional independence;set up required Gait Training [...] over the weekend except for [facility]. CM spoke with [facility] KANWAL Sandhu RN who said that they do not anticipate any beds over the weekend. Reviewed with patient/ that they need to be aware that patient will need to take the first bed offered at the facilities that they make referrals to. Their choices are: 1- [facility] PHONE: [phone] FAX: [phone] 2- [facility] ([facility]) [address] [place] [address] 3- [facility]) [address] [place] [address] I have discussed Medicare/Private Insurance [...] RS/CM on Wednesday to follow-up. Covering pager #[phone] for today. Plan of Care - Henrique [...] with additional findings of pseudoaneurysm on R TUBE DISPATCHER and bilateral anterior tibial artery occlusions. Was [...] an outpatient once discharged. Have patient call [phone] to set up an appointment. Follow-up: Dermatology will sign-off for now. Please do not hesitate to contact us if you have any questions orconcerns. Impression and Recommendations discussed with primary team on 08/13/2017. Karo Henderson MD Resident in Dermatology Section of Dermatology, Department of Surgery [facility] Pager [phone] Patient seen and evaluated with staff Employee Counselor: Halima Cordero MD Section of Dermatology [facility] Level of Resident Supervision: Direct Supervision [...] 2.5x80 5. Completion RLE angiogram 6. L TUBE DISPATCHER angiogram 7. Mynx closure Active Non-Hospital Problems [...] abdominal wall ??? Urinary retention ??? MARIA VCITORIA (obstructive sleep apnea) on CPAP ??? Goiter [...] home with home health ([facility] PT&OT) Pager: [phone] YASIR TELLO OT 08/12/2017 Occupational Therapy Rehabilitation [...] 2.5x80 5. Completion RLE angiogram 6. L TUBE DISPATCHER angiogram 7. Mynx closure Past Medical History: [...] with 24/7 assistance and maximal services) Pager: [phone] NICHOLAS MORA, JESSIE 08/12/2017 Physical Therapy Rehabilitation [...] sit/sit to supine -- Bed Mobility Goal, Lawrence Level independent -- Bed Mobility Goal, Outcome Achieved -- goal ongoing Goal: Gait Training Goal Stand Alone Therapy Goal Outcome: Ongoing (Interventions Implemented as Appropriate) 08/11/17 1310 08/12/17 1510 Gait Training Goal Gait Training Goal, Date Established 08/11/17 -- Gait Training Goal, Time to Achieve 5 - 7 days -- Gait Training Goal, Lawrence Level conditional independence -- Gait Training Goal, [...] days -- Transfer Training Goal, Activity Type uhe-dr-agxuw/nvaag-tn-auc -- Transfer Train Goal, Lawrence Level conditional independence -- Transfer Training Goal, [...] Smith MD - 08/11/2017 2:52 PM EST [facility] Operative Note Patient Name: Gregory Hoang : [id number] MR#: [id number] Case Date: 08/11/2017 Surgeon: Surgeon(s) and Role: [...] 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 Completion RLE angiogram 6. L TUBE DISPATCHER angiogram 7. Mynx closure He is very [...] Anticipated Discharge Disposition: inpatient rehabilitation facility Pager: [phone] LAWRENCE GONZALEZ, PT 08/11/2017 Physical Therapy Rehabilitation [...] to sit/sit to supine Bed Mobility Goal, Lawrence Level independent Goal: Gait Training Goal Stand Alone Therapy Goal Outcome: Ongoing (Interventions Implemented as Appropriate) 08/11/17 1310 Gait Training Goal Gait Training Goal, Date Established 08/11/17 Gait Training Goal, Time to Achieve 5 - 7 days Gait Training Goal, Lawrence Level conditional independence Gait Training Goal, Assist [...] 7 days Transfer Training Goal, Activity Type bny-zr-ukxfm/dshqc-yh-vva Transfer Train Goal, Lawrence Level conditional independence Plan of Care - [...] call cabello within reach, Hourly rounding by RN/UNIT AIDE. Bed alarm / Chair alarm. ? Patient-specific [...] 04/05/2013 Hospitalizations Within the Past 30 Days: [facility] 07/20/2017 Anticipated Length Of Stay (If known): Expected Length of Hospitalization: 5-7 days2-3 days Current Decision-Making Capacity: Alert and oriented x 4 Advance Care Planning: on file Kisha Hoang [facility] [phone] Current Coping/Education/Information Needs: pt and spouse state [...] Health/Prescription Coverage: Primary Insurance: MEDICARE Secondary Insurance: [place] Prescription Coverage: See above Preferred Pharmacy: [facility] [employer] Other: N/A Primary Care Provider: Lovely Vicente MD [phone] Patient/Caregiver Goals of Treatment: Patient plans to [...] of care planning. Kaitlin Saha RN Pager: [phone] Plan of Care - Melba Jaramillo RN [...] Overview Goal: Plan of Care Review 08/08/17 1054 Coping/Psychosocial Plan Of Care Reviewed With patient [...] call cabello within reach, Hourly rounding by RN/UNIT AIDE. Bed alarm / Chair alarm. Patient-specific fall [...] at bedside and MD TEAM Carrying pager [phone] contacted (via Radio page) and notified of [...] [facility] er Cardiology Dept [place], [place] [address] (Wo rk) 03/26/2022 Office Visit Cardiology Vitaliy Nobles MD [facility] CARDIOLOGY [place], [place] [address] (Wo rk) documented as of [...] TYPE AND SCREEN Routine 08/09/2017 1:10 AM ([facility]/SHANDA) EST BASIC METABOLIC PANEL Routine 08/09/2017 1:10 [...] Signature POC Glucose 160 65 - 199 [facility] mg/dL [facility] Comment: Supplemental ranges: <140 mg/dL before meals <180 mg/dL all other times of the day Specimen Anatomical Collection Method Collection Time Receive d Time (Source) Location / / Volume Laterality Blood specimen 08/16/2017 7:28 AM 018 7:28 (specimen) EST AM EST Yonathan Smith MD POINT OF CARE TEST ORDERABLE S Performing Organization Address City/State/ZIP [place] [address] (ABNORMAL) Differential, Automated (08/16/2017 5:08 AM EST) Patholo gist Method Time Signature Neutrophils % 73.9 % [facility] Neutr Abs (ANC) 5.37 1.70 - [facility] 6.10 [facility] x10(3)/[facility] LABORATORY Lymphocytes % 10.1 % [facility] Lymphocytes Abs 0.7 (L) 0.9 - 3.2 [facility] x10(3)/[facility] LABORATORY Monocytes % 10.1 % [facility] Monocyte Abs 0.7 0.3 - 0.9 [facility] x10(3)/[facility] LABORATORY Eosinophils % 5.1 % [facility] Eosinophils Abs 0.4 0.0 - 0.4 [facility] x10(3)/[facility] LABORATORY Basophils % 0.4 % [facility] Basophils Abs 0.0 0.0 - 0.1 [facility] x10(3)/[facility] LABORATORY Immature Gran % 0.40 % [facility] Comment: Immature granulocytes(IG's)percentage an d absolute count will include metamyelocytes, myelocytes, and promyelo cytes. Blood smears from CBCs yielding IG's will be scanned manually for concor dance. If this scan disagrees with the automated IG or if promyelocytes are not ed, a manual differential will be performed. Melisa Gran Abs 0.03 0.00 - 0.04 x10(3)/[facility] Specimen Anatomical Collection Method Collection Time Receive d Time (Source) Location / / Volume Laterality Blood specimen 08/16/2017 5:08 AM 018 5:20 (specimen) EST AM EST Resulting Agency Comment Spec In Lab Yonathan Smith MD HEMATOLOGY ORDERABLES Performing Organization Address City/State/ZIP [place] [address] (ABNORMAL) Hemogram (08/16/2017 5:08 AM EST) Analysis Performed At Patho logist Time Signature WBC 7.3 4.0 - 9.5 [facility] x10(3)/[facility] LABORATORY RBC 3.36 (L) 4.58 - [facility] 5.54 [facility] x10(6)/[facility] LABORATORY Hemoglobin 9.7 (L) 13.7 - [facility] 16.[facility] gm/dL [facility] Hematocrit 30.3 (L) 40.5 - [facility] 48.5 % [facility] MCV 90.2 82.9 - [facility] 93.1 [facility] LABORATORY MCH 28.9 27.5 - [facility]AN 32.1 pg [facility] MCHC 32.0 32.0 - [facility] 35.7 gm/dL [facility] Platelets 282 145 - 357 [facility] [facility] x10(3)/[facility] LABORATORY RDWSD 53.9 (H) 36.0 - [facility] 45[facility]0 [facility] LABORATORY RDWCV 16.5 (H) 11.4 - [facility] 13.8 % [facility] LABORATORY MPV 9.0 7.6 - 12.9 [facility] LABORATORY nRBC % Auto 0.0 % [facility] LABORATORY nRBC Abs Auto 0.000 0.000 - [facility] 0.000 [facility] x10(3)/[facility] LABORATORY Specimen Anatomical Collection Method Collection Time Receive d Time (Source) Location / / Volume Laterality Blood specimen 08/16/2017 5:08 AM 018 5:20 (specimen) EST AM EST Resulting Agency Comment Spec In Lab Yonathan Smith MD HEMATOLOGY ORDERABLES Performing Organization Address City/State/ZIP [place] [address] (ABNORMAL) Basic Metabolic Panel (non-fasting) (08/16/2017 5:08 AM EST) athologist Signature Glucose Lvl 141 65 - 199 [facility] mg/dL [facility] LABORATORY Comment: Diabetes: >=200 mg/dL [...] estions. Chloride 99 98 - 107 mmol/L [facility] LABORATORY CO2 28 22 - 31 mmol/L [facility] LABORATORY Anion Gap 13 5 - 15 mmol/L [facility] LABORATORY Calcium 8.7 8.5 - 10.5 mg/dL [facility] LABORATORY Estimated GFR 57 (L) >=60 [facility] LABORATORY Comment: The reported eGFR should be multiplied b y 1.2 for patients. The MDRD is not an appropriate measure o f renal function for patients with body mass extremes or in patients with acute kidney failure. http://[email or web address] [email or web address]/DHMCnkf Specimen Anatomical Collection Method Collection Time Receive d Time (Source) Location / / Volume Laterality Blood specimen 08/16/2017 5:08 AM 018 5:20 (specimen) EST AM EST Resulting Agency Comment Spec In Lab Yonathan Smith MD CHEMISTRY ORDERABLES Performing Organization Address City/State/ZIP [place] [address] (ABNORMAL) Prothrombin Time (08/16/2017 5:08 AM EST) athologist Signature PT 25.2 (H) 11.8 - 14.0 [facility] LABORATORY INR 2.3 (H) 0.9 - 1.1 [facility] LABORATORY Comment: An INR <2.0 [...] Organization Address City/State/ZIP Code Phon e Number [address] POCT Glucose (08/16/2017 4:09 AM EST) athologist Signature POC Glucose 147 65 - 199 [place] mg/dL [facility] LABORATORY Comment: Supplemental ranges: <140 mg/dL before meals <180 mg/dL all other times of the day Specimen Anatomical Collection Method Collection Time Receive d Time (Source) Location / / Volume Laterality Blood specimen 08/16/2017 4:09 AM 018 4:09 (specimen) EST AM EST Yonathan Smith MD POINT OF CARE TEST ORDERABLE S Performing Organization Address City/[facility]/ZIP Code Phon e Number [address] POCT Glucose (08/15/2017 11:56 PM EST) athologist Signature POC Glucose 176 65 - 199 [facility] mg/dL [facility] LABORATORY Comment: Supplemental ranges: <140 mg/dL before meals <180 mg/dL all other times of the day Specimen Anatomical Collection Method Collection Time Receive d Time (Source) Location / / Volume Laterality Blood specimen 08/15/2017 11:56 8 (specimen) PM EST 11:56 PM EST Yonathan Smith MD POINT OF CARE TEST ORDERABLE S Performing Organization Address City/State/[place] [address] POCT Glucose (08/15/2017 8:05 PM EST) athologist Signature POC Glucose 136 65 - 199 [facility] mg/dL [facility] LABORATORY Comment: Supplemental ranges: <140 mg/dL before meals <180 mg/dL all other times of the day Specimen Anatomical Collection Method Collection Time Receive d Time (Source) Location / / Volume Laterality Blood specimen 08/15/2017 8:05 PM 018 8:05 (specimen) EST PM EST Yonathan Smith MD POINT OF CARE TEST ORDERABLE S Performing Organization Address City/State/[place] [address] (ABNORMAL) POCT Glucose (08/15/2017 4:50 PM EST) athologist Signature POC Glucose 232 (H) 65 - 199 [place] [facility] mg/dL [facility] LABORATORY Comment: Supplemental ranges: <140 mg/dL before meals <180 mg/dL all other times of the day Specimen Anatomical Collection Method Collection Time Receive d Time (Source) Location / / Volume Laterality Blood specimen 08/15/2017 4:50 PM 018 4:50 (specimen) EST PM EST Yonathan Smith MD POINT OF CARE TEST ORDERABLE S Performing Organization Address City/State/[place] [address] POCT Glucose (08/15/2017 12:04 PM EST) athologist Signature POC Glucose 135 65 - 199 [place] mg/dL [facility] LABORATORY Comment: Supplemental ranges: <140 mg/dL before meals <180 mg/dL all other times of the day Specimen Anatomical Collection Method Collection Time Receive d Time (Source) Location / / Volume Laterality Blood specimen 08/15/2017 12:04 8 (specimen) PM EST 12:04 PM EST Yonathan Smith MD POINT OF CARE TEST ORDERABLE S Performing Organization Address City/State/[place] [address] POCT Glucose (08/15/2017 7:36 AM EST) athologist Signature POC Glucose 124 65 - 199 [place] mg/dL [facility] LABORATORY Comment: Supplemental ranges: <140 mg/dL before meals <180 mg/dL all other times of the day Specimen Anatomical Collection Method Collection Time Receive d Time (Source) Location / / Volume Laterality Blood specimen 08/15/2017 7:36 AM 018 7:36 (specimen) EST AM EST Yonathan Smith MD POINT OF CARE TEST ORDERABLE S Performing Organization Address City/State/ZIP [place] [address] (ABNORMAL) Differential, Automated (08/15/2017 6:22 AM EST) [facility] Method Time Signature Neutrophils % 76.1 % [facility] LABORATORY Neutr Abs (ANC) 6.62 (H) 1.70 - [facility] 6.10 [facility] x10(3)/[facility] L LABORATORY Lymphocytes % 9.3 % [facility] LABORATORY Lymphocytes Abs 0.8 (L) 0.9 - 3.2 [facility] x10(3)/[facility] LABORATORY Monocytes % 9.4 % [facility] LABORATORY Monocyte Abs 0.8 0.3 - 0.9 [facility] x10(3)/[facility] LABORATORY Eosinophils % 4.0 % [facility] LABORATORY Eosinophils Abs 0.4 0.0 - 0.4 [facility] x10(3)/[facility] LABORATORY Basophils % 0.6 % [facility] LABORATORY Basophils Abs 0.0 0.0 - 0.1 [facility] x10(3)/[facility] LABORATORY Immature Gran % 0.60 % [facility] LABORATORY Comment: Immature granulocytes(IG's)percentage an d absolute count will include metamyelocytes, myelocytes, and promyelo cytes. Blood smears from CBCs yielding IG's will be scanned manually for concor dance. If this scan disagrees with the automated IG or if promyelocytes are not ed, a manual differential will be performed. Melisa Gran Abs 0.05 (H) 0.00 - 0.04 x10(3)/[facility] LABORATORY Specimen Anatomical Collection Method Collection Time Receive d Time (Source) Location / / Volume Laterality Blood specimen 08/15/2017 6:22 AM 018 6:33 (specimen) EST AM EST Resulting Agency Comment Spec In Lab Yonathan Smith MD HEMATOLOGY ORDERABLES Performing Organization Address City/State/ZIP [place] [address] (ABNORMAL) Hemogram (08/15/2017 6:22 AM EST) Analysis Performed At Patho logist Time Signature WBC 8.7 4.0 - 9.5 [facility] x[facility](3[facility] LABORATORY RBC 3.21 (L) 4.58 - [place] [facility] 5.54 [facility] x10(6)/[facility] LABORATORY Hemoglobin 9.1 (L) 13.7 - [facility]/dL [facility] LABORATORY Hematocrit 29.0 (L) 40.5 - [facility] 48.5 % [facility] LABORATORY MCV 90.3 82.9 - [facility] 93.1 [facility] LABORATORY MCH 28.3 27.5 - [place] [facility] 32.1 pg [facility] LABORATORY MCHC 31.4 (L) 32.0 - [place] 35.7 gm/dL [facility] LABORATORY Platelets 254 145 - 357 [facility] x10(3)/[facility] LABORATORY RDWSD 53.9 (H) 36.0 - [place] [facility] 45.0 [facility] LABORATORY RDWCV 16.3 (H) 11.4 - [facility] 13.8 % [facility] LABORATORY MPV 8.8 7.6 - 12.9 [facility] LABORATORY nRBC % Auto 0.0 % [facility] LABORATORY nRBC Abs Auto 0.000 0.000 - [facility] 0.000 [facility] x10(3)/[facility] LABORATORY Specimen Anatomical Collection Method Collection Time Receive d Time (Source) Location / / Volume Laterality Blood specimen 08/15/2017 6:22 AM 018 6:33 (specimen) EST AM EST Resulting Agency Comment Spec In Lab Yonathan Smith MD HEMATOLOGY ORDERABLES Performing Organization Address City/State/ZIP Code Phon e Number [place] [id number] HOSPITAL LABORATORY Drive (ABNORMAL) Basic Metabolic Panel (non-fasting) (08/15/2017 6:22 AM EST) P athologist Signature Glucose Lvl 118 65 - 199 [facility] mg/dL [facility] LABORATORY Comment: Diabetes: >=200 mg/dL plus symp toms BUN 27 (H) 10 - 20 mg/dL [facility] LABORATORY Creatinine 1.12 0.80 - 1.50 mg/dL [facility] LABORATORY Sodium 138 135 - 145 mmol/L [place] mmol/L [facility] LABORATORY Anion Gap 11 5 - 15 mmol/L [facility] LABORATORY Calcium 8.8 8.5 - 10.5 mg/dL [facility] LABORATORY Estimated GFR >60 >=60 [facility] LABORATORY Comment: The reported eGFR should be multiplied b y 1.2 for patients. The MDRD is not an appropriate measure o f renal function for patients with body mass extremes or in patients with acute kidney failure. http://Quantuvis/DHnkdep [email or web address]/DHMCnkf Specimen Anatomical Collection Method Collection Time Receive d Time (Source) Location / / Volume Laterality Blood specimen 08/15/2017 6:22 AM 018 6:33 (specimen) EST AM EST Resulting Agency Comment Spec In Lab Yonathan Smith MD CHEMISTRY ORDERABLES Performing Organization Address City/State/ZIP [place] [address] (ABNORMAL) Prothrombin Time (08/15/2017 6:22 AM EST) athologist Signature PT 21.9 (H) 11.8 - 14.0 [facility] LABORATORY INR 1.9 (H) 0.9 - 1.1 [facility] LABORATORY Comment: An INR <2.0 [...] Organization Address City/State/ZIP Code Phon e Number [address] POCT Glucose (08/15/2017 4:33 AM EST) athologist Signature POC Glucose 164 65 - 199 [facility] mg/dL [facility] LABORATORY Comment: Supplemental ranges: <140 mg/dL before meals <180 mg/dL all other times of the day Specimen Anatomical Collection Method Collection Time Receive d Time (Source) Location / / Volume Laterality Blood specimen 08/15/2017 4:33 AM 018 4:33 (specimen) EST AM EST Yonathan Smith MD POINT OF CARE TEST ORDERABLE S Performing Organization Address City/[facility]/ZIP Code Phon e Number [address] POCT Glucose (08/15/2017 12:12 AM EST) athologist Signature POC Glucose 89 65 - 199 [facility]/dL [facility] LABORATORY Comment: Supplemental ranges: <140 mg/dL before meals <180 mg/dL all other times of the day Specimen Anatomical Collection Method Collection Time Receive d Time (Source) Location / / Volume Laterality Blood specimen 08/15/2017 12:12 8 (specimen) AM EST 12:12 AM EST Yonathan Smith MD POINT OF CARE TEST ORDERABLE S Performing Organization Address City/State/[place] [address] (ABNORMAL) POCT Glucose (08/14/2017 8:07 PM EST) athologist Signature POC Glucose 204 (H) 65 - 199 [facility] mg/dL [facility] LABORATORY Comment: Supplemental ranges: <140 mg/dL before meals <180 mg/dL all other times of the day Specimen Anatomical Collection Method Collection Time Receive d Time (Source) Location / / Volume Laterality Blood specimen 08/14/2017 8:07 PM 018 8:07 (specimen) EST PM EST Yonathan Smith MD POINT OF CARE TEST ORDERABLE S Performing Organization Address City/State/ZIP Code Phon e Number [address] POCT Glucose (08/14/2017 5:11 PM EST) athologist Signature POC Glucose 174 65 - 199 [facility]/dL [facility] LABORATORY Comment: Supplemental ranges: <140 mg/dL before meals <180 mg/dL all other times of the day Specimen Anatomical Collection Method Collection Time Receive d Time (Source) Location / / Volume Laterality Blood specimen 08/14/2017 5:11 PM 018 5:11 (specimen) EST PM EST Yonathan Smith MD POINT OF CARE TEST ORDERABLE S Performing Organization Address City/State/[place] [address] POCT Glucose (08/14/2017 12:10 PM EST) athologist Signature POC Glucose 141 65 - 199 [facility] mg/dL [facility] LABORATORY Comment: Supplemental ranges: <140 mg/dL before meals <180 mg/dL all other times of the day Specimen Anatomical Collection Method Collection Time Receive d Time (Source) Location / / Volume Laterality Blood specimen 08/14/2017 12:10 8 (specimen) PM EST 12:10 PM EST Yonathan Smith MD POINT OF CARE TEST ORDERABLE S Performing Organization Address City/State/[place] [address] POCT Glucose (08/14/2017 8:07 AM EST) P athologist Signature POC Glucose 158 65 - 199 [facility] mg/dL [facility] LABORATORY Comment: Supplemental ranges: <140 mg/dL before meals <180 mg/dL all other times of the day Specimen Anatomical Collection Method Collection Time Receive d Time (Source) Location / / Volume Laterality Blood specimen 08/14/2017 8:07 AM 018 8:07 (specimen) EST AM EST Yonathan Smith MD POINT OF CARE TEST ORDERABLE S Performing Organization Address City/State/ZIP [place] [address] (ABNORMAL) Differential, Automated (08/14/2017 4:52 AM EST) Patholo gist Method Time Signature Neutrophils % 78.6 % [facility] LABORATORY Neutr Abs (ANC) 7.70 (H) 1.70 - [facility] 6.10 [facility] x10(3)/[facility] L LABORATORY Lymphocytes % 7.8 % [facility] LABORATORY Lymphocytes Abs 0.8 (L) 0.9 - 3.2 [facility] x10(3)/[facility] LABORATORY Monocytes % 8.8 % [facility] LABORATORY Monocyte Abs 0.9 0.3 - 0.9 [facility] x10(3)/[facility] LABORATORY Eosinophils % 4.0 % [facility] LABORATORY Eosinophils Abs 0.4 0.0 - 0.4 [facility] x10(3)/[facility] LABORATORY Basophils % 0.5 % [facility] LABORATORY Basophils Abs 0.0 0.0 - 0.1 [facility] x10(3)/[facility] LABORATORY Immature Gran % 0.30 % [facility] LABORATORY Comment: Immature granulocytes(IG's)percentage an d absolute count will include metamyelocytes, myelocytes, and promyelo cytes. Blood smears from CBCs yielding IG's will be scanned manually for concor dance. If this scan disagrees with the automated IG or if promyelocytes are not ed, a manual differential will be performed. Melisa Gran Abs 0.03 0.00 - 0.04 x10(3)/[facility] LABORATORY Specimen Anatomical Collection Method Collection Time Receive d Time (Source) Location / / Volume Laterality Blood specimen 08/14/2017 4:52 AM 018 5:08 (specimen) EST AM EST Resulting Agency Comment Spec In Lab Yonathan Smith MD HEMATOLOGY ORDERABLES Performing Organization Address City/State/ZIP [place] [address] (ABNORMAL) Hemogram (08/14/2017 4:52 AM EST) Analysis Performed At Patho logist Time Signature WBC 9.8 (H) 4.0 - 9.5 [facility] x10(3)/[facility] LABORATORY RBC 3.32 (L) 4.58 - [facility] 5[facility] x10(6)/[facility] LABORATORY Hemoglobin 9.5 (L) 13.7 - [facility] 16.[facility] gm/dL [facility] LABORATORY Hematocrit 30.3 (L) 40.5 - [facility] 48.5 % [facility] LABORATORY MCV 91.3 82.9 - [facility] 93.1 [facility] LABORATORY MCH 28.6 27.5 - [facility] 32.1 pg [facility] LABORATORY MCHC 31.4 (L) 32.0 - [facility] 35.7 gm/dL [facility] LABORATORY Platelets 263 145 - 357 [facility] x10(3)/[facility] LABORATORY RDWSD 54.8 (H) 36.0 - [facility] 45.0 [facility] LABORATORY RDWCV 16.5 (H) 11.4 - [facility] 13.8 % [facility] LABORATORY MPV 9.1 7.6 - 12.9 [facility] LABORATORY nRBC % Auto 0.0 % [facility] LABORATORY nRBC Abs Auto 0.000 0.000 - [facility] 0.000 [facility] x10(3)/[facility] LABORATORY Specimen Anatomical Collection Method Collection Time Receive d Time (Source) Location / / Volume Laterality Blood specimen 08/14/2017 4:52 AM 018 5:08 (specimen) EST AM EST Resulting Agency Comment Spec In Lab Yonathan Smith MD HEMATOLOGY ORDERABLES Performing Organization Address City/[facility]/[place] [address] (ABNORMAL) Prothrombin Time (08/14/2017 4:52 AM EST) athologist Signature PT 18.8 (H) 11.8 - 14.0 [facility] LABORATORY INR 1.6 (H) 0.9 - 1.1 [facility] LABORATORY Comment: An INR <2.0 [...] Organization Address City/State/[place] [address] (ABNORMAL) Basic Metabolic Panel (non-fasting) (08/14/2017 4:52 AM EST) athologist Signature Glucose Lvl 135 65 - 199 [facility] mg/dL [facility] LABORATORY Comment: Diabetes: >=200 mg/dL [...] LABORATORY Calcium 8.5 8.5 - 10.5 mg/dL [facility] LABORATORY Estimated GFR 52 (L) >=60 [facility] LABORATORY Comment: The reported eGFR should be multiplied b y 1.2 for patients. The MDRD is not an appropriate measure o f renal function for patients with body mass extremes or in patients with acute kidney failure. http://Quantuvis/DHnkdep http://Quantuvis/DHMCnkf Specimen Anatomical Collection Method Collection Time Receive d Time (Source) Location / / Volume Laterality Blood specimen 08/14/2017 4:52 AM 018 5:08 (specimen) EST AM EST Resulting Agency Comment Spec In Lab Yonathan Smith MD CHEMISTRY ORDERABLES Performing Organization Address City/[facility]/ZIP Code Phon e Number [address] POCT Glucose (08/14/2017 3:56 AM EST) athologist Signature POC Glucose 135 65 - 199 [facility] mg/dL [facility] LABORATORY Comment: Supplemental ranges: <140 mg/dL before meals <180 mg/dL all other times of the day Specimen Anatomical Collection Method Collection Time Receive d Time (Source) Location / / Volume Laterality Blood specimen 08/14/2017 3:56 AM 018 3:56 (specimen) EST AM EST Yonathan Smith MD POINT OF CARE TEST ORDERABLE S Performing Organization Address City/[facility]/ZIP [facility] Phon e Number [address] POCT Glucose (08/13/2017 11:13 PM EST) athologist Signature POC Glucose 118 65 - 199 [facility] mg/dL [facility] LABORATORY Comment: Supplemental ranges: <140 mg/dL before meals <180 mg/dL all other times of the day Specimen Anatomical Collection Method Collection Time Receive d Time (Source) Location / / Volume Laterality Blood specimen 08/13/2017 11:13 8 (specimen) PM EST 11:13 PM EST Yonathan Smith MD POINT OF CARE TEST ORDERABLE S Performing Organization Address City/State/[place] [address] (ABNORMAL) POCT Glucose (08/13/2017 8:08 PM EST) athologist Signature POC Glucose 204 (H) 65 - 199 [facility] mg/dL [facility] LABORATORY Comment: Supplemental ranges: <140 mg/dL before meals <180 mg/dL all other times of the day Specimen Anatomical Collection Method Collection Time Receive d Time (Source) Location / / Volume Laterality Blood specimen 08/13/2017 8:08 PM 018 8:08 (specimen) EST PM EST Yonathan Smith MD POINT OF CARE TEST ORDERABLE S Performing Organization Address City/State/[place] [address] POCT Glucose (08/13/2017 4:02 PM EST) athologist Signature POC Glucose 145 65 - 199 [place] mg/dL [facility] LABORATORY Comment: Supplemental ranges: <140 mg/dL before meals <180 mg/dL all other times of the day Specimen Anatomical Collection Method Collection Time Receive d Time (Source) Location / / Volume Laterality Blood specimen 08/13/2017 4:02 PM 018 4:02 (specimen) EST PM EST Yonathan Smith MD POINT OF CARE TEST ORDERABLE S Performing Organization Address City/State/[place] [address] POCT Glucose (08/13/2017 11:31 AM EST) athologist Signature POC Glucose 179 65 - 199 [facility] mg/dL [facility] LABORATORY Comment: Supplemental ranges: <140 mg/dL before meals <180 mg/dL all other times of the day Specimen Anatomical Collection Method Collection Time Receive d Time (Source) Location / / Volume Laterality Blood specimen 08/13/2017 11:31 8 (specimen) AM EST 11:31 AM EST Yonathan Smith MD POINT OF CARE TEST ORDERABLE S Performing Organization Address City/State/[place] [address] (ABNORMAL) POCT Glucose (08/13/2017 10:16 AM EST) P athologist Signature POC Glucose 211 (H) 65 - 199 [facility] mg/dL [facility] LABORATORY Comment: Supplemental ranges: <140 mg/dL before meals <180 mg/dL all other times of the day Specimen Anatomical Collection Method Collection Time Receive d Time (Source) Location / / Volume Laterality Blood specimen 08/13/2017 10:16 8 (specimen) AM EST 10:16 AM EST Yonathan Smith MD POINT OF CARE TEST ORDERABLE S Performing Organization Address City/[facility]/[place] [address] JULIAN, legs, multiple levels (08/13/2017 7:42 AM EST) Component Value Ref Test Analysis Performed At Patholo gist Range Method Time Signature VB Text Department: Vascular Surgery Lab VASCUBASE Report Patient: [id number] (GREGORY HOANG) CPT: 44331 ICD10: I99.8 Referring Physician: YONATHAN SMITH ?? Indications: s/p R 1,2,3 toe amps with red left foot, need n ew baseline Diabetes mellitus: yes ICD10 Diagnosis Code: I99.8 Findings: Right ?Pressure (mm Hg) ?? JULIAN ??Waveform ?TBI ?? Brachial Artery ?138 ? Dorsalis Pedis (Ankle) Arter y ?132 ? 0.94 ??[place]- Biphasic ? Posterior Tibial (Ankle) Art anila ??154 ? 1.10 ??[place]-Biphasic ? Fourth Toe ? 67 ? 0.48 [...] Signature POC Glucose 156 65 - 199 [facility] mg/dL [facility] LABORATORY Comment: Supplemental ranges: <140 mg/dL before meals <180 mg/dL all other times of the day Specimen Anatomical Collection Method Collection Time Receive d Time (Source) Location / / Volume Laterality Blood specimen 08/13/2017 7:33 AM 018 7:33 (specimen) EST AM EST Yonathan Smith MD POINT OF CARE TEST ORDERABLE S Performing Organization Address City/State/ZIP [place] [address] (ABNORMAL) Differential, Automated (08/13/2017 5:33 AM EST) Patholo gist Method Time Signature Neutrophils % 77.8 % [facility] LABORATORY Neutr Abs (ANC) 7.83 (H) 1.70 - [facility] 6.10 [facility] x10(3)/[facility] L LABORATORY Lymphocytes % 8.4 % [facility] Lymphocytes Abs 0.8 (L) 0.9 - 3.2 [facility] x10(3)/[facility] LABORATORY Monocytes % 8.3 % [facility] Monocyte Abs 0.8 0.3 - 0.9 [facility] x10(3)/[facility] LABORATORY Eosinophils % 4.6 % [facility] Eosinophils Abs 0.5 (H) 0.0 - 0.4 [facility] x10(3)/[facility] LABORATORY Basophils % 0.5 % [facility] Basophils Abs 0.0 0.0 - 0.1 [facility] x10(3)/[facility] LABORATORY Immature Gran % 0.40 % [facility] Comment: Immature granulocytes(IG's)percentage an d absolute count will include metamyelocytes, myelocytes, and promyelo cytes. Blood smears from CBCs yielding IG's will be scanned manually for concor dance. If this scan disagrees with the automated IG or if promyelocytes are not ed, a manual differential will be performed. Melisa Gran Abs 0.04 0.00 - 0.04 x10(3)/[facility] LABORATORY Specimen Anatomical Collection Method Collection Time Receive d Time (Source) Location / / Volume Laterality Blood specimen 08/13/2017 5:33 AM 018 6:04 (specimen) EST AM EST Resulting Agency Comment Spec In Lab Yonathan Smith MD HEMATOLOGY ORDERABLES Performing Organization Address City/State/ZIP [place] [address] (ABNORMAL) Hemogram (08/13/2017 5:33 AM EST) Analysis Performed At Patho logist Time Signature WBC 10.1 (H) 4.0 - 9.5 [facility] x10(3)/[facility] LABORATORY RBC 3.21 (L) 4.58 - [facility] 5.54 [facility] x10(6)/[facility] LABORATORY Hemoglobin 9.2 (L) 13.7 - [facility] 16.5 gm/dL [facility] LABORATORY Hematocrit 29.6 (L) 40.5 - [facility] 48.5 % [facility] LABORATORY MCV 92.2 82.9 - [facility] 93.1 [facility] LABORATORY MCH 28.7 27.5 - [place] [facility] 32.1 pg [facility] LABORATORY MCHC 31.1 (L) 32.0 - [facility] 35.7 gm/dL [facility] LABORATORY Platelets 263 145 - 357 [facility] x10(3)/[facility] LABORATORY RDWSD 54.8 (H) 36.0 - [facility] 45.0 [facility] LABORATORY RDWCV 16.4 (H) 11.4 - [facility] 13.8 % [facility] LABORATORY MPV 9.2 7.6 - 12.9 [facility] LABORATORY nRBC % Auto 0.0 % [facility] nRBC Abs Auto 0.000 0.000 - [facility] x10(3)/[facility] LABORATORY Specimen Anatomical Collection Method Collection Time Receive d Time (Source) Location / / Volume Laterality Blood specimen 08/13/2017 5:33 AM 018 6:04 (specimen) EST AM EST Resulting Agency Comment Spec In Lab Yonathan Smith MD HEMATOLOGY ORDERABLES Performing Organization Address City/State/ZIP [place] [address] (ABNORMAL) Prothrombin Time (08/13/2017 5:33 AM EST) P athologist Signature PT 17.3 (H) 11.8 - 14.0 [facility] LABORATORY INR 1.4 (H) 0.9 - 1.1 [facility] Comment: An INR <2.0 [...] Organization Address City/State/ZIP [place] [address] (ABNORMAL) Basic Metabolic Panel (non-fasting) (08/13/2017 5:33 AM EST) athologist Signature Glucose Lvl 126 65 - 199 [facility] mg/dL [facility] LABOR[facility]ORY Comment: Diabetes: >=200 mg/dL [...] Calcium 7.9 (L) 8.5 - 10.5 mg/dL [facility] LABORATORY Estimated GFR >60 >=60 [facility] LABORATORY Comment: The reported eGFR should be multiplied b y 1.2 for patients. The MDRD is not an appropriate measure o f renal function for patients with body mass extremes or in patients with acute kidney failure. http://[email or web address] [email or web address]/DHMCnkf Specimen Anatomical Collection Method Collection Time Receive d Time (Source) Location / / Volume Laterality Blood specimen 08/13/2017 5:33 AM 018 6:04 (specimen) EST AM EST Resulting Agency Comment Spec In Lab Yonathan Smith MD CHEMISTRY ORDERABLES Performing Organization Address City/[facility]/ZIP Code Phon e Number [address] POCT Glucose (08/13/2017 4:29 AM EST) athologist Signature POC Glucose 111 65 - 199 [place] mg/dL [facility] Comment: Supplemental ranges: <140 mg/dL before meals <180 mg/dL all other times of the day Specimen Anatomical Collection Method Collection Time Receive d Time (Source) Location / / Volume Laterality Blood specimen 08/13/2017 4:29 AM 018 4:29 (specimen) EST AM EST Yonathan Smith MD POINT OF CARE TEST ORDERABLE S Performing Organization Address City/[facility]/ZIP Code Phon e Number [address] POCT Glucose (08/12/2017 11:28 PM EST) athologist Signature POC Glucose 164 65 - 199 [place] mg/dL [facility] LABOR[facility] Comment: Supplemental ranges: <140 mg/dL before meals <180 mg/dL all other times of the day Specimen Anatomical Collection Method Collection Time Receive d Time (Source) Location / / Volume Laterality Blood specimen 08/12/2017 11:28 8 (specimen) PM EST 11:28 PM EST Yonathan Smith MD POINT OF CARE TEST ORDERABLE S Performing Organization Address City/[facility]/ZIP Code Phon e Number [address] (ABNORMAL) POCT Glucose (08/12/2017 7:40 PM EST) athologist Signature POC Glucose 209 (H) 65 - 199 [place] mg/dL [facility] LABOR[facility]ORY Comment: Supplemental ranges: <140 mg/dL before meals <180 mg/dL all other times of the day Specimen Anatomical Collection Method Collection Time Receive d Time (Source) Location / / Volume Laterality Blood specimen 08/12/2017 7:40 PM 018 7:40 (specimen) EST PM EST Yonathan Smith MD POINT OF CARE TEST ORDERABLE S Performing Organization Address City/[facility]/ZIP Code Phon e Number [address] POCT Glucose (08/12/2017 4:24 PM EST) athologist Signature POC Glucose 161 65 - 199 [place] mg/dL [facility] LABOR[facility]ORY Comment: Supplemental ranges: <140 mg/dL before meals <180 mg/dL all other times of the day Specimen Anatomical Collection Method Collection Time Receive d Time (Source) Location / / Volume Laterality Blood specimen 08/12/2017 4:24 PM 018 4:24 (specimen) EST PM EST Yonathan Smith MD POINT OF CARE TEST ORDERABLE S Performing Organization Address City/[facility]/ZIP Code Phon e Number [address] POCT Glucose (08/12/2017 12:00 PM EST) athologist Signature POC Glucose 167 65 - 199 [place] mg/dL [facility] LABOR[facility] Comment: Supplemental ranges: <140 mg/dL before meals <180 mg/dL all other times of the day Specimen Anatomical Collection Method Collection Time Receive d Time (Source) Location / / Volume Laterality Blood specimen 08/12/2017 12:00 8 (specimen) PM EST 12:00 PM EST Yonathan Smith MD POINT OF CARE TEST ORDERABLE S Performing Organization Address City/[facility]/ZIP Code Phon e Number [address] POCT Glucose (08/12/2017 7:25 AM EST) athologist Signature POC Glucose 152 65 - 199 [facility] mg/dL [facility] Comment: Supplemental ranges: <140 mg/dL before meals <180 mg/dL all other times of the day Specimen Anatomical Collection Method Collection Time Receive d Time (Source) Location / / Volume Laterality Blood specimen 08/12/2017 7:25 AM 018 7:25 (specimen) EST AM EST Yonathan Smith MD POINT OF CARE TEST ORDERABLE S Performing Organization Address City/State/ZIP [place] [address] (ABNORMAL) Differential, Automated (08/12/2017 6:29 AM EST) [facility] Method Time Signature Neutrophils % 78.7 % [facility]OR[facility]ORY Neutr Abs (ANC) 7.94 (H) 1.70 - [facility] 6.10 [facility] x10(3)/[facility] LABORATORY Lymphocytes % 8.8 % [facility]ORY Lymphocytes Abs 0.9 0.9 - 3.2 [facility] x10(3)/[facility] LABORATORY Monocytes % 7.8 % [facility]OR[facility] Monocyte Abs 0.8 0.3 - 0.9 [facility] x10(3)/[facility] LABORATORY Eosinophils % 3.9 % [facility] Eosinophils Abs 0.4 0.0 - 0.4 [facility] x10(3)/[facility] LABORATORY Basophils % 0.3 % [facility] Basophils Abs 0.0 0.0 - 0.1 [facility] x10(3)/[facility] LABORATORY Immature Gran % 0.50 % [facility] Comment: Immature granulocytes(IG's)percentage an d absolute count will include metamyelocytes, myelocytes, and promyelo cytes. Blood smears from CBCs yielding IG's will be scanned manually for concor dance. If this scan disagrees with the automated IG or if promyelocytes are not ed, a manual differential will be performed. Melisa Gran Abs 0.05 (H) 0.00 - 0.04 x10(3)/[facility] LABORATORY Specimen Anatomical Collection Method Collection Time Receive d Time (Source) Location / / Volume Laterality Blood specimen 08/12/2017 6:29 AM 018 6:38 (specimen) EST AM EST Resulting Agency Comment Spec In Lab Yonathan Smith MD HEMATOLOGY ORDERABLES Performing Organization Address City/State/ZIP [place] [address] (ABNORMAL) Hemogram (08/12/2017 6:29 AM EST) Analysis Performed At Patho logist Time Signature WBC 10.1 (H) 4.0 - 9.5 [facility] x10(3)/[facility] LABORATORY RBC 3.02 (L) 4.58 - [facility] 5.54 [facility] x10(6)/[facility] LABORATORY Hemoglobin 8.7 (L) 13.7 - [facility] 16.5 gm/dL [facility] LABORATORY Hematocrit 28.1 (L) 40.5 - [facility] 48.5 % [facility] LABORATORY MCV 93.0 82.9 - [facility].1 [facility] LABORATORY MCH 28.8 27.5 - [facility] 32.1 pg [facility] LAB[facility]ORY MCHC 31.0 (L) 32.0 - [facility] 35.7 gm/dL [facility]ORY Platelets 223 145 - 357 [facility] x10(3)/[facility] LABORATORY RDWSD 56.1 (H) 36.0 - [facility] 45.0 [facility] LABORATORY RDWCV 16.4 (H) 11.4 - [facility] 13.8 % [facility] LABORATORY MPV 9.0 7.6 - 12.9 [facility] LABORATORY nRBC % Auto 0.0 % [facility] nRBC Abs Auto 0.000 0.000 - [facility] 0.000 [facility] x10(3)/[facility] LABORATORY Specimen Anatomical Collection Method Collection Time Receive d Time (Source) Location / / Volume Laterality Blood specimen 08/12/2017 6:29 AM 018 6:38 (specimen) EST AM EST Resulting Agency Comment Spec In Lab Yonathan Smith MD HEMATOLOGY ORDERABLES Performing Organization Address City/State/ZIP [place] [address] (ABNORMAL) Prothrombin Time (08/12/2017 6:29 AM EST) P athologist Signature PT 16.1 (H) 11.8 - 14.0 [facility] LABORATORY INR 1.3 (H) 0.9 - 1.1 [facility] LABORATORY Comment: An INR <2.0 [...] Organization Address City/State/ZIP [place] [address] (ABNORMAL) Basic Metabolic Panel (non-fasting) (08/12/2017 6:29 AM EST) athologist Signature Glucose Lvl 151 65 - 199 [facility] mg/dL [facility] LABOR[facility]ORY Comment: Diabetes: >=200 mg/dL plus symp toms BUN 18 10 - 20 mg/dL [facility] LABORATORY Creatinine 1.11 0.80 - 1.50 mg/dL [facility] LABORATORY Sodium 138 135 - 145 mmol/L [place] [...] estions. Chloride 99 98 - 107 mmol/L [facility] CO2 28 22 - 31 mmol/L [facility]OR[facility] Anion Gap 11 5 - 15 mmol/L [facility] LABORATORY Calcium 7.9 (L) 8.5 - 10.5 mg/dL [facility] LABORATORY Estimated GFR >60 >=60 [facility] Comment: The reported eGFR should be multiplied b y 1.2 for patients. The MDRD is not an appropriate measure o f renal function for patients with body mass extremes or in patients with acute kidney failure. http://Quantuvis/DHnkdep http://Quantuvis/DHMCnkf Specimen Anatomical Collection Method Collection Time Receive d Time (Source) Location / / Volume Laterality Blood specimen 08/12/2017 6:29 AM 018 6:38 (specimen) EST AM EST Resulting Agency Comment Spec In Lab Yonathan Smith MD CHEMISTRY ORDERABLES Performing Organization Address City/[facility]/ZIP Code Phon e Number [address] POCT Glucose (08/12/2017 4:08 AM EST) athologist Signature POC Glucose 181 65 - 199 [facility] mg/dL [facility] LABOR[facility]ORY Comment: Supplemental ranges: <140 mg/dL before meals <180 mg/dL all other times of the day Specimen Anatomical Collection Method Collection Time Receive d Time (Source) Location / / Volume Laterality Blood specimen 08/12/2017 4:08 AM 018 4:08 (specimen) EST AM EST Yonathan Smith MD POINT OF CARE TEST ORDERABLE S Performing Organization Address City/[facility]/[place] [address] (ABNORMAL) POCT Glucose (08/12/2017 12:17 AM EST) athologist Signature POC Glucose 221 (H) 65 - 199 [facility] Comment: Supplemental ranges: <140 mg/dL before meals <180 mg/dL all other times of the day Specimen Anatomical Collection Method Collection Time Receive d Time (Source) Location / / Volume Laterality Blood specimen 08/12/2017 12:17 8 (specimen) AM EST 12:17 AM EST Yonathan Smith MD POINT OF CARE TEST ORDERABLE S Performing Organization Address City/State/[place] [address] (ABNORMAL) POCT Glucose (08/11/2017 8:52 PM EST) athologist Signature POC Glucose 221 (H) 65 - 199 [place] mg/dL [facility] LABORATORY Comment: Supplemental ranges: <140 mg/dL before meals <180 mg/dL all other times of the day Specimen Anatomical Collection Method Collection Time Receive d Time (Source) Location / / Volume Laterality Blood specimen 08/11/2017 8:52 PM 018 8:52 (specimen) EST PM EST Yonathan Smith MD POINT OF CARE TEST ORDERABLE S Performing Organization Address City/State/[place] [address] POCT Glucose (08/11/2017 5:59 PM EST) athologist Signature POC Glucose 169 65 - 199 [facility] LAB[facility]ORY Comment: Supplemental ranges: <140 mg/dL before meals <180 mg/dL all other times of the day Specimen Anatomical Collection Method Collection Time Receive d Time (Source) Location / / Volume Laterality Blood specimen 08/11/2017 5:59 PM 018 5:59 (specimen) EST PM EST Yonathan Smith MD POINT OF CARE TEST ORDERABLE S Performing Organization Address City/State/[place] [address] (ABNORMAL) POCT Glucose (08/11/2017 4:08 PM EST) athologist Signature POC Glucose 240 (H) 65 - 199 [place] mg/dL [facility] LABOR[facility]ORY Comment: Supplemental ranges: <140 mg/dL before meals <180 mg/dL all other times of the day Specimen Anatomical Collection Method Collection Time Receive d Time (Source) Location / / Volume Laterality Blood specimen 08/11/2017 4:08 PM 018 4:08 (specimen) EST PM EST Yonathan Smith MD POINT OF CARE TEST ORDERABLE S Performing Organization Address City/State/[place] [address] POCT Glucose (08/11/2017 12:04 PM EST) athologist Signature POC Glucose 182 65 - 199 [facility] LAB[facility]ORY Comment: Supplemental ranges: <140 mg/dL before meals <180 mg/dL all other times of the day Specimen Anatomical Collection Method Collection Time Receive d Time (Source) Location / / Volume Laterality Blood specimen 08/11/2017 12:04 8 (specimen) PM EST 12:04 PM EST Yonathan Smith MD POINT OF CARE TEST ORDERABLE S Performing Organization Address City/State/ZIP Code Phon e Number [address] POCT Glucose (08/11/2017 7:31 AM EST) athologist Signature POC Glucose 156 65 - 199 [facility] mg/dL [facility] LABORATORY Comment: Supplemental ranges: <140 mg/dL before meals <180 mg/dL all other times of the day Specimen Anatomical Collection Method Collection Time Receive d Time (Source) Location / / Volume Laterality Blood specimen 08/11/2017 7:31 AM 018 7:31 (specimen) EST AM EST Yonathan Smith MD POINT OF CARE TEST ORDERABLE S Performing Organization Address City/[facility]/ZIP Code Phon e Number [address] (ABNORMAL) Differential, Automated (08/11/2017 6:16 AM EST) [facility] gist Method Time Signature Neutrophils % 83.7 % [facility] LABORATORY Neutr Abs (ANC) 10.76 (H) 1.70 - [facility] 6.10 [facility] x10(3)/[facility] L LABORATORY Lymphocytes % 6.0 % [facility] LABORATORY Lymphocytes Abs 0.8 (L) 0.9 - 3.2 [facility] x10(3)/[facility] LABORATORY Monocytes % 7.5 % [facility] LABORATORY Monocyte Abs 1.0 (H) 0.3 - 0.9 [facility] x10(3)/[facility] LABORATORY Eosinophils % 2.0 % [facility]ORATORY Eosinophils Abs 0.3 0.0 - 0.4 [facility] x10(3)/[facility] LABORATORY Basophils % 0.3 % [facility]ORATORY Basophils Abs 0.0 0.0 - 0.1 [facility] x10(3)/[facility] LABORATORY Immature Gran % 0.50 % [facility]ORY Comment: Immature granulocytes(IG's)percentage an d absolute count will include metamyelocytes, myelocytes, and promyelo cytes. Blood smears from CBCs yielding IG's will be scanned manually for concor dance. If this scan disagrees with the automated IG or if promyelocytes are not ed, a manual differential will be performed. Melisa Gran Abs 0.06 (H) 0.00 - 0.04 x10(3)/[facility] LABORATORY Specimen Anatomical Collection Method Collection Time Receive d Time (Source) Location / / Volume Laterality Blood specimen 08/11/2017 6:16 AM 018 6:24 (specimen) EST AM EST Resulting Agency Comment Spec In Lab Yonathan Smith MD HEMATOLOGY ORDERABLES Performing Organization Address City/State/ZIP [place] [address] (ABNORMAL) Hemogram (08/11/2017 6:16 AM EST) Analysis Performed At Patho logist Time Signature WBC 12.9 (H) 4.0 - 9.5 [facility] x10(3)/[facility] LABORATORY RBC 3.28 (L) 4.58 - [facility] x10(6)/[facility] LABORATORY Hemoglobin 9.5 (L) 13.7 - [facility] 16.5 gm/dL [facility] LABORATORY Hematocrit 29.8 (L) 40.5 - [facility] 48.5 % [facility] LABORATORY MCV 90.9 82.9 - [facility] 93.1 fL [facility] LABORATORY MCH 29.0 27.5 - [facility] 32.1 pg [facility] LABORATORY MCHC 31.9 (L) 32.0 - [facility] 35.7 gm/dL [facility] LABORATORY Platelets 236 145 - 357 [facility] x10(3)/[facility] LABORATORY RDWSD 53.5 (H) 36.0 - [facility] 45.0 [facility] LABORATORY RDWCV 16.3 (H) 11.4 - [facility] 13.8 % [facility] LABORATORY MPV 8.8 7.6 - 12.9 [facility] LABORATORY nRBC % Auto 0.0 % [facility] LABORATORY nRBC Abs Auto 0.000 0.000 - [place] [facility] 0.000 [facility] x10(3)/[facility] LABORATORY Specimen Anatomical Collection Method Collection Time Receive d Time (Source) Location / / Volume Laterality Blood specimen 08/11/2017 6:16 AM 018 6:24 (specimen) EST AM EST Resulting Agency Comment Spec In Lab Yonathan Smith MD HEMATOLOGY ORDERABLES Performing Organization Address City/[facility] [place] [address] (ABNORMAL) Prothrombin Time (08/11/2017 6:16 AM EST) P athologist Signature PT 15.5 (H) 11.8 - 14.0 [facility] LABORATORY INR 1.3 (H) 0.9 - 1.1 [facility] LABORATORY Comment: An INR <2.0 [...] Smith MD HEMATOLOGY ORDERABLES Performing Organization Address City/[facility] [place] [address] Basic Metabolic Panel (non-fasting) (08/11/2017 6:16 AM EST) athologist Signature Glucose Lvl 139 65 - 199 [facility] mg/dL [facility] LABORATORY Comment: Diabetes: >=200 mg/dL plus symp toms BUN 12 10 - 20 mg/dL [facility] LABORATORY Creatinine 0.91 0.80 - 1.50 mg/dL [facility] LABORATORY Sodium 138 135 - 145 mmol/L [place] 107 mmol/L [facility] LABOR[facility]ORY CO2 27 22 - 31 mmol/L [facility] LABOR[facility]ORY Anion Gap 13 5 - 15 mmol/L [facility] LABORATORY Calcium 8.5 8.5 - 10.5 mg/dL [facility] LABORATORY Estimated GFR >60 >=60 [facility] LABORATORY Comment: The reported eGFR should be multiplied b y 1.2 for patients. The MDRD is not an appropriate measure o f renal function for patients with body mass extremes or in patients with acute kidney failure. [email or web address] [email or web address]/DHMCnkf Specimen Anatomical Collection Method Collection Time Receive d Time (Source) Location / / Volume Laterality Blood specimen 08/11/2017 6:16 AM 018 6:24 (specimen) EST AM EST Resulting Agency Comment Spec In Lab Yonathan Smith MD CHEMISTRY ORDERABLES Performing Organization Address City/State/ZIP [place] [address] POCT Glucose (08/11/2017 4:07 AM EST) athologist Signature POC Glucose 162 65 - 199 [facility] mg/dL [facility] LABORATORY Comment: Supplemental ranges: <140 mg/dL before meals <180 mg/dL all other times of the day Specimen Anatomical Collection Method Collection Time Receive d Time (Source) Location / / Volume Laterality Blood specimen 08/11/2017 4:07 AM 018 4:07 (specimen) EST AM EST Yonathan Smith MD POINT OF CARE TEST ORDERABLE S Performing Organization Address City/State/ZIP Code Phon e Number [address] POCT Glucose (08/10/2017 11:59 PM EST) athologist Signature POC Glucose 166 65 - 199 [place] mg/dL [facility] LABORATORY Comment: Supplemental ranges: <140 mg/dL before meals <180 mg/dL all other times of the day Specimen Anatomical Collection Method Collection Time Receive d Time (Source) Location / / Volume Laterality Blood specimen 08/10/2017 11:59 8 (specimen) PM EST 11:59 PM EST Yonathan Smith MD POINT OF CARE TEST ORDERABLE S Performing Organization Address City/State/ZIP Code Phon e Number [address] POCT Glucose (08/10/2017 8:12 PM EST) athologist Signature POC Glucose 156 65 - 199 [facility] LABORATORY Comment: Supplemental ranges: <140 mg/dL before meals <180 mg/dL all other times of the day Specimen Anatomical Collection Method Collection Time Receive d Time (Source) Location / / Volume Laterality Blood specimen 08/10/2017 8:12 PM 018 8:12 (specimen) EST PM EST Yonathan Smith MD POINT OF CARE TEST ORDERABLE S Performing Organization Address City/State/ZIP Code Phon e Number [address] (ABNORMAL) POCT Glucose (08/10/2017 4:42 PM EST) athologist Signature POC Glucose 211 (H) 65 - 199 [facility] mg/dL [facility] LABORATORY Comment: Supplemental ranges: <140 mg/dL before meals <180 mg/dL all other times of the day Specimen Anatomical Collection Method Collection Time Receive d Time (Source) Location / / Volume Laterality Blood specimen 08/10/2017 4:42 PM 018 4:42 (specimen) EST PM EST Yonathan Smith MD POINT OF CARE TEST ORDERABLE S Performing Organization Address City/State/ZIP [place] [address] (ABNORMAL) Differential, Automated (08/10/2017 2:30 PM EST) [facility] Method Time Signature Neutrophils % 87.6 % [facility] LABORATORY Neutr Abs (ANC) 9.90 (H) 1.70 - [facility] 6.10 [facility] x10(3)/[facility] LABORATORY Lymphocytes % 4.3 % [facility] LABORATORY Lymphocytes Abs 0.5 (L) 0.9 - 3.2 [facility] x10(3)/[facility] LABORATORY Monocytes % 6.0 % [facility] LABORATORY Monocyte Abs 0.7 0.3 - 0.9 [facility] x10(3)/[facility] LABORATORY Eosinophils % 1.1 % [facility] LABORATORY Eosinophils Abs 0.1 0.0 - 0.4 [facility] x10(3)/[facility] LABORATORY Basophils % 0.4 % [facility] LABORATORY Basophils Abs 0.0 0.0 - 0.1 [facility] x10(3)/[facility] LABORATORY Immature Gran % 0.60 % [facility] LABORATORY Comment: Immature granulocytes(IG's)percentage an d absolute count will include metamyelocytes, myelocytes, and promyelo cytes. Blood smears from CBCs yielding IG's will be scanned manually for concor dance. If this scan disagrees with the automated IG or if promyelocytes are not ed, a manual differential will be performed. Melisa Gran Abs 0.07 (H) 0.00 - 0.04 x10(3)/[facility] LABORATORY Specimen Anatomical Collection Method Collection Time Receive d Time (Source) Location / / Volume Laterality Blood specimen 08/10/2017 2:30 PM 018 2:48 (specimen) EST PM EST Resulting Agency Comment Spec In Lab Yonathan Smith MD HEMATOLOGY ORDERABLES Performing Organization Address City/State/[place] [address] (ABNORMAL) Hemogram (08/10/2017 2:30 PM EST) Analysis Performed At Patho logist Time Signature WBC 11.3 (H) 4.0 - 9.5 [facility] x[facility](3[facility] LABORATORY RBC 3.13 (L) 4.58 - [place] 5.54 [facility] x10(6)/[facility] LABORATORY Hemoglobin 8.9 (L) 13.7 - [facility] 16.5 gm/dL [facility] LABORATORY Hematocrit 28.4 (L) 40.5 - [facility] 48.5 % [facility] LABORATORY MCV 90.7 82.9 - [facility] 93.1 [facility] LABORATORY MCH 28.4 27.5 - [place] 32.1 pg [facility] LABORATORY MCHC 31.3 (L) 32.0 - [place] 35.7 gm/dL [facility] LABORATORY Platelets 213 145 - 357 [facility] x10(3)/[facility] LABORATORY RDWSD 53.7 (H) 36.0 - [facility] 45.0 [facility] LABORATORY RDWCV 16.4 (H) 11.4 - [facility] 13.8 % [facility] LABORATORY MPV 8.9 7.6 - 12.9 [facility] LABORATORY nRBC % Auto 0.0 % [facility] LABORATORY nRBC Abs Auto 0.000 0.000 - [place] 0.000 [facility] x10(3)/[facility] LABORATORY Specimen Anatomical Collection Method Collection Time Receive d Time (Source) Location / / Volume Laterality Blood specimen 08/10/2017 2:30 PM 018 2:48 (specimen) EST PM EST Resulting Agency Comment Spec In Lab Yonathan Smith MD HEMATOLOGY ORDERABLES Performing Organization Address City/State/[place] [address] (ABNORMAL) POCT Glucose (08/10/2017 1:50 PM EST) athologist Signature POC Glucose 243 (H) 65 - 199 [facility] mg/dL [facility] LABORATORY Comment: Supplemental ranges: <140 mg/dL before meals <180 mg/dL all other times of the day Specimen Anatomical Collection Method Collection Time Receive d Time (Source) Location / / Volume Laterality Blood specimen 08/10/2017 1:50 PM 018 1:50 (specimen) EST PM EST Yonathan Smith MD POINT OF CARE TEST ORDERABLE S Performing Organization Address City/State/ZIP Code Phon e Number [address] POCT Glucose (08/10/2017 11:21 AM EST) athologist Signature POC Glucose 156 65 - 199 [facility] mg/dL [facility] LABORATORY Comment: Supplemental ranges: <140 mg/dL before meals <180 mg/dL all other times of the day Specimen Anatomical Collection Method Collection Time Receive d Time (Source) Location / / Volume Laterality Blood specimen 08/10/2017 11:21 8 (specimen) AM EST 11:21 AM EST Yonathan Smith MD POINT OF CARE TEST ORDERABLE S Performing Organization Address City/[facility]/ZIP Code Phon e Number [address] (ABNORMAL) Differential, Automated (08/10/2017 10:28 AM EST) [facility] gist Method Time Signature Neutrophils % 85.3 % [facility] LABORATORY Neutr Abs (ANC) 9.43 (H) 1.70 - [facility] 6.10 [facility] x10(3)/[facility] LABORATORY Lymphocytes % 5.5 % [facility] LABORATORY Lymphocytes Abs 0.6 (L) 0.9 - 3.2 [facility] x10(3)/[facility] LABORATORY Monocytes % 5.9 % [facility] LABORATORY Monocyte Abs 0.6 0.3 - 0.9 [facility] x10(3)/[facility] LABORATORY Eosinophils % 2.1 % [facility] LABORATORY Eosinophils Abs 0.2 0.0 - 0.4 [facility] x10(3)/[facility] LABORATORY Basophils % 0.4 % [facility] LABORATORY Basophils Abs 0.0 0.0 - 0.1 [facility] x10(3)/[facility] LABORATORY Immature Gran % 0.80 % [facility] LABORATORY Comment: Immature granulocytes(IG's)percentage an d absolute count will include metamyelocytes, myelocytes, and promyelo cytes. Blood smears from CBCs yielding IG's will be scanned manually for concor dance. If this scan disagrees with the automated IG or if promyelocytes are not ed, a manual differential will be performed. Melisa Gran Abs 0.09 (H) 0.00 - 0.04 x10(3)/[facility] LABORATORY Specimen Anatomical Collection Method Collection Time Receive d Time (Source) Location / / Volume Laterality Blood specimen 08/10/2017 10:28 8 (specimen) AM EST 10:35 AM EST Resulting Agency Comment Spec In Lab Yonathan Smith MD HEMATOLOGY ORDERABLES Performing Organization Address City/State/ZIP [place] [address] (ABNORMAL) Hemogram (08/10/2017 10:28 AM EST) Analysis Performed At Patho logist Time Signature WBC 11.0 (H) 4.0 - 9.5 [facility] x10(3)/[facility] LABORATORY RBC 3.02 (L) 4.58 - [facility] 5.54 [facility] x10(6)/[facility] LABORATORY Hemoglobin 8.8 (L) 13.7 - [facility] 16.5 gm/dL [facility] LABORATORY Hematocrit 28.1 (L) 40.5 - [facility] 48.5 % [facility] LABORATORY MCV 93.0 82.9 - [facility] 93.1 fL [facility] LABORATORY MCH 29.1 27.5 - [facility] 32.1 pg [facility] LABORATORY MCHC 31.3 (L) 32.0 - [facility] 35.7 gm/dL [facility] LABORATORY Platelets 207 145 - 357 [facility] x10(3)/[facility] LABORATORY RDWSD 55.3 (H) 36.0 - [place] 45.0 [facility] LABORATORY RDWCV 16.4 (H) 11.4 - [place] 13.8 % [facility] MPV 9.0 7.6 - 12.9 [place] [facility] LABORATORY nRBC % Auto 0.0 % [facility] nRBC Abs Auto 0.000 0.000 - [place] 0.000 [facility] x10(3)/[facility] LABORATORY Specimen Anatomical Collection Method Collection Time Receive d Time (Source) Location / / Volume Laterality Blood specimen 08/10/2017 10:28 8 (specimen) AM EST 10:35 AM EST Resulting Agency Comment Spec In Lab Yonathan Smith MD HEMATOLOGY ORDERABLES Performing Organization Address City/State/ZIP [place] [address] VS Angiogram/intervention (vascular) (08/10/2017 [...] 2.5x80 5. Completion RLE angiogram 6. L TUBE DISPATCHER angiogram 7. 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 L TUBE DISPATCHER access in the distal L TUBE DISPATCHER. - Closure device: Mynx Technical Procedure: ?The [...] for a 45cm 5F Destination. V18 and [place] a nd QuickCross catheters were used to [...] bifurcation. Access appeared in the distal R TUBE DISPATCHER. Closure and sheath removal was performed with [...] 2.5x80 5. Completion RLE angiogram 6. L TUBE DISPATCHER angiogram 7. 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 L TUBE DISPATCHER access in the distal L TUBE DISPATCHER. - Closure device: Mynx Technical Procedure: The [...] for a 45cm 5F Destination. V18 and [place] a nd QuickCross catheters were used to [...] bifurcation. Access appeared in the distal R TUBE DISPATCHER. Closure and sheath removal was performed with [...] (ABNORMAL) Differential, Automated (08/10/2017 5:50 AM EST) [facility] Method Time Signature Neutrophils % 80.1 % [facility] LABORATORY Neutr Abs (ANC) 9.01 (H) 1.70 - [facility] 6.10 [facility] x10(3)/[facility] LABORATORY Lymphocytes % 8.8 % [facility] LABORATORY Lymphocytes Abs 1.0 0.9 - 3.2 [facility] x10(3)/[facility] LABORATORY Monocytes % 8.3 % [facility] LABORATORY Monocyte Abs 0.9 0.3 - 0.9 [facility] x10(3)/[facility] LABORATORY Eosinophils % 2.0 % [facility] LABORATORY Eosinophils Abs 0.2 0.0 - 0.4 [facility] x10(3)/[facility] LABORATORY Basophils % 0.4 % [facility] LABORATORY Basophils Abs 0.0 0.0 - 0.1 [facility] x10(3)/[facility] LABORATORY Immature Gran % 0.40 % [facility] LABORATORY Comment: Immature granulocytes(IG's)percentage an d absolute count will include metamyelocytes, myelocytes, and promyelo cytes. Blood smears from CBCs yielding IG's will be scanned manually for concor dance. If this scan disagrees with the automated IG or if promyelocytes are not ed, a manual differential will be performed. Melisa Gran Abs 0.05 (H) 0.00 - 0.04 x10(3)/[facility] LABORATORY Specimen Anatomical Collection Method Collection Time Receive d Time (Source) Location / / Volume Laterality Blood specimen 08/10/2017 5:50 AM 018 5:59 (specimen) EST AM EST Resulting Agency Comment Spec In Lab Yonathan Smith MD HEMATOLOGY ORDERABLES Performing Organization Address City/State/ZIP [place] [address] (ABNORMAL) Hemogram (08/10/2017 5:50 AM EST) Analysis Performed At Patho logist Time Signature WBC 11.3 (H) 4.0 - 9.5 [facility] x10(3)/[facility] LABORATORY RBC 3.15 (L) 4.58 - [facility] 5.54 [facility] x10(6)/[facility] LABORATORY Hemoglobin 8.9 (L) 13.7 - [facility] 16.5 gm/dL [facility] LABORATORY Hematocrit 29.0 (L) 40.5 - [facility] 48.5 % [facility] LABORATORY MCV 92.1 82.9 - [facility] 93.1 [facility] LABORATORY MCH 28.3 27.5 - [facility] 32.1 pg [facility] LABORATORY MCHC 30.7 (L) 32.0 - [facility] 35.7 gm/dL [facility] LABORATORY Platelets 231 145 - 357 [facility] x10(3)/[facility] LABORATORY RDWSD 53.9 (H) 36.0 - [facility] 45.0 [facility] LABORATORY RDWCV 16.2 (H) 11.4 - [facility] 13.8 % [facility] LABORATORY MPV 8.7 7.6 - 12.9 [facility] LABORATORY nRBC % Auto 0.0 % [facility] LABORATORY nRBC Abs Auto 0.000 0.000 - [facility] 0.000 [facility] x10(3)/[facility] LABORATORY Specimen Anatomical Collection Method Collection Time Receive d Time (Source) Location / / Volume Laterality Blood specimen 08/10/2017 5:50 AM 018 5:59 (specimen) EST AM EST Resulting Agency Comment Spec In Lab Yonathan Smith MD HEMATOLOGY ORDERABLES Performing Organization Address City/State/ZIP [place] [address] (ABNORMAL) Basic Metabolic Panel (non-fasting) (08/10/2017 5:50 AM EST) athologist Signature Glucose Lvl 135 65 - 199 [facility] mg/dL [facility] LABORATORY Comment: Diabetes: >=200 mg/dL [...] estions. Chloride 104 98 - 107 mmol/L [facility] LABORATORY CO2 27 22 - 31 mmol/L [facility] LABORATORY Anion Gap 13 5 - 15 mmol/L [facility] LABORATORY Calcium 8.1 (L) 8.5 - 10.5 mg/dL [facility] LABORATORY Estimated GFR >60 >=60 [facility] LABORATORY Comment: The reported eGFR should be multiplied b y 1.2 for patients. The MDRD is not an appropriate measure o f renal function for patients with body mass extremes or in patients with acute kidney failure. http://[employer]/DHnkdep http://[employer]/DHMCnkf Specimen Anatomical Collection Method Collection Time Receive d Time (Source) Location / / Volume Laterality Blood specimen 08/10/2017 5:50 AM 018 5:59 (specimen) EST AM EST Resulting Agency Comment Spec In Lab Yonathan Smith MD CHEMISTRY ORDERABLES Performing Organization Address City/State/[place] [address] (ABNORMAL) Prothrombin Time (08/10/2017 5:50 AM EST) athologist Signature PT 16.8 (H) 11.8 - 14.0 [facility] LABORATORY INR 1.4 (H) 0.9 - 1.1 [facility] LABORATORY Comment: An INR <2.0 [...] Smith MD HEMATOLOGY ORDERABLES Performing Organization Address City/[facility]/[place] [address] (ABNORMAL) POCT Glucose (08/10/2017 4:01 AM EST) athologist Signature POC Glucose 206 (H) 65 - 199 [facility] mg/dL [facility] LABORATORY Comment: Supplemental ranges: <140 mg/dL before meals <180 mg/dL all other times of the day Specimen Anatomical Collection Method Collection Time Receive d Time (Source) Location / / Volume Laterality Blood specimen 08/10/2017 4:01 AM 018 4:01 (specimen) EST AM EST Yonathan Smith MD POINT OF CARE TEST ORDERABLE S Performing Organization Address City/[facility]/[place] [address] POCT Glucose (08/10/2017 2:01 AM EST) athologist Signature POC Glucose 188 65 - 199 [facility] mg/dL [facility] LABORATORY Comment: Supplemental ranges: <140 mg/dL before meals <180 mg/dL all other times of the day Specimen Anatomical Collection Method Collection Time Receive d Time (Source) Location / / Volume Laterality Blood specimen 08/10/2017 2:01 AM 018 2:01 (specimen) EST AM EST Yonathan Smith MD POINT OF CARE TEST ORDERABLE S Performing Organization Address City/State/[place] [address] (ABNORMAL) POCT Glucose (08/09/2017 11:42 PM EST) P athologist Signature POC Glucose 283 (H) 65 - 199 [facility] mg/dL [facility] LABORATORY Comment: Supplemental ranges: <140 mg/dL before meals <180 mg/dL all other times of the day Specimen Anatomical Collection Method Collection Time Receive d Time (Source) Location / / Volume Laterality Blood specimen 08/09/2017 11:42 8 (specimen) PM EST 11:42 PM EST Yonathan Smith MD POINT OF CARE TEST ORDERABLE S Performing Organization Address City/State/[place] [address] POCT Glucose (08/09/2017 8:55 PM EST) P athologist Signature POC Glucose 182 65 - 199 [facility] LABORATORY Comment: Supplemental ranges: <140 mg/dL before meals <180 mg/dL all other times of the day Specimen Anatomical Collection Method Collection Time Receive d Time (Source) Location / / Volume Laterality Blood specimen 08/09/2017 8:55 PM 018 8:55 (specimen) EST PM EST Yonathan Smith MD POINT OF CARE TEST ORDERABLE S Performing Organization Address City/State/[place] [address] (ABNORMAL) APTT (08/09/2017 6:42 PM EST) P athologist Signature PTT 90 (H) 25 - 35 sec [facility] LABORATORY Comment: The recommended therapeutic range for fu ll dose, unfractionated heparin at [facility] is 80 ? 114 seconds. The use [...] Organization Address City/State/ZIP Code Phon e Number [address] POCT Glucose (08/09/2017 4:41 PM EST) athologist Signature POC Glucose 195 65 - 199 [facility] mg/dL [facility] LABORATORY Comment: Supplemental ranges: <140 mg/dL before meals <180 mg/dL all other times of the day Specimen Anatomical Collection Method Collection Time Receive d Time (Source) Location / / Volume Laterality Blood specimen 08/09/2017 4:41 PM 018 4:41 (specimen) EST PM EST Yonathan Smith MD POINT OF CARE TEST ORDERABLE S Performing Organization Address City/[facility]/ZIP Code Phon e Number [address] POCT Glucose (08/09/2017 12:29 PM EST) athologist Signature POC Glucose 140 65 - 199 [facility]/dL [facility] LABORATORY Comment: Supplemental ranges: <140 mg/dL before meals <180 mg/dL all other times of the day Specimen Anatomical Collection Method Collection Time Receive d Time (Source) Location / / Volume Laterality Blood specimen 08/09/2017 12:29 8 (specimen) PM EST 12:29 PM EST Yonathan Smith MD POINT OF CARE TEST ORDERABLE S Performing Organization Address City/State/ZIP Code Phon e Number [address] POCT Glucose (08/09/2017 9:59 AM EST) athologist Signature POC Glucose 135 65 - 199 [facility] mg/dL [facility] LABORATORY Comment: Supplemental ranges: <140 mg/dL before meals <180 mg/dL all other times of the day Specimen Anatomical Collection Method Collection Time Receive d Time (Source) Location / / Volume Laterality Blood specimen 08/09/2017 9:59 AM 018 9:59 (specimen) EST AM EST Yonathan Smtih MD POINT OF CARE TEST ORDERABLE S Performing Organization Address City/[facility]/[place] [address] Specimen to Pathology (08/09/2017 8:41 AM EST) Specimen Anatomical Collection Method Collection Time Receive d Time (Source) Location / / Volume Laterality AP Specimen 08/09/2017 8:41 AM 8 8:41 EST AM EST Narrative [facility] LABORAT ORY - 08/09/2017 8:41 AM EST Specimen requisition ordered. ??Separate Pathology report to follow Yonathan Smith MD PATHOLOGY/CYTOLOGY ORDERABLE S Performing Organization Address City/State/[place] [address] Surgical Pathology Report (08/09/2017 8:40 AM EST) Component Value Ref Test Analysis [facility] Range Method Time Signature Surgical [id number] ? Location: [facility]; [facility]; A [facility] Report The signing pathologist has (i) examined the relevant preparation(s) for the [facility] specimen(s) and (ii) rendered or confirmed the diagnosis(es) . HOSPITAL LABORATORY . 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 ?Viable proximal resection margins. Electronically signed by: ??Manjit STRANGE, Henrique Flower Verified: ??08/13/2017 ?Pathologist Performed at: ??-[facility] Dept. of Pathology, [place], [place] CLINICAL INFORMATION Specimen Submitted: A - [...] Organization Address City/State/ZIP [place] [address] Anaerobic Culture (08/09/2017 8:30 AM EST) [facility] gist Method Time Signature Anaerobic No anaerobic [facility] Culture organisms [facility] LABORATORY Specimen Anatomical Collection Method Collection Time [...] Organization Address City/State/[place] [address] (ABNORMAL) Abscess/Wound Aspirate Culture (08/09/2017 8:30 AM EST) [facility] Method Time Signature Abscess/Wound Moderate mixed [place] Aspirate bacterial ENNIS Culture morphotypes [facility] normal LABORATORY cutaneous leroy (A) Gram Stain Rare White Blood Cells [place] Few Gram Positive Cocci in pairs ENNIS () [facility] LABORATORY Organism Gram Positive [place] Cocci in pairs ENNIS () [facility] LABORATORY Specimen Anatomical Collection Method [...] - GENERAL ORDER ROBSON Performing Organization Address City/[facility]/ZIP Code Phon e Number [address] POCT Glucose (08/09/2017 4:28 AM EST) P athologist Signature POC Glucose 128 65 - 199 [facility] mg/dL [facility] LABORATORY Comment: Supplemental ranges: <140 mg/dL before meals <180 mg/dL all other times of the day Specimen Anatomical Collection Method Collection Time Receive d Time (Source) Location / / Volume Laterality Blood specimen 08/09/2017 4:28 AM 018 4:28 (specimen) EST AM EST Yonathan Smith MD POINT OF CARE TEST ORDERABLE S Performing Organization Address City/[facility]/ZIP Code Phon e Number [address] ABORH Recheck Status (08/09/2017 1:10 AM EST) [facility] Method Time Signature ABORH Type Completed [facility] LABORATORY Specimen Anatomical Collection Method Collection Time Receive d Time (Source) Location / / Volume Laterality Blood specimen 08/09/2017 1:10 AM 018 1:35 (specimen) EST AM EST Resulting Agency Comment Spec In Lab Yonathan Smith MD BLOOD BANK ORDERABLES Performing Organization Address City/[facility]/[place] [address] Antibody screen (08/09/2017 1:10 AM EST) Patholo gist Method Time Signature Ab Screen Negative [facility] LABORATORY Expires at 08/12/2017 [facility] [id number] on: [facility] LABORATORY Specimen Anatomical Collection Method Collection Time Receive d Time (Source) Location / / Volume Laterality Blood specimen 08/09/2017 1:10 AM 018 1:35 (specimen) EST AM EST Resulting Agency Comment Spec In Lab Yonathan Smith MD BLOOD BANK ORDERABLES Performing Organization Address City/[facility]/ZIP Code Phon e Number [address] ABO/Rh Typing (08/09/2017 1:10 AM EST) P athologist Signature ABORh Type O Pos [facility] LABORATORY Specimen Anatomical Collection Method Collection Time Receive d Time (Source) Location / / Volume Laterality Blood specimen 08/09/2017 1:10 AM 018 1:35 (specimen) EST AM EST Resulting Agency Comment Spec In Lab Yonathan Smith MD BLOOD BANK ORDERABLES Performing Organization Address City/[facility] [place] [address] (ABNORMAL) APTT (08/09/2017 1:10 AM EST) P athologist Signature PTT 86 (H) 25 - 35 sec [facility] LABORATORY Comment: The recommended therapeutic range for fu ll dose, unfractionated heparin at [facility] is 80 ? 114 seconds. The use [...] Organization Address City/State/ZIP [place] [address] (ABNORMAL) Differential, Automated (08/09/2017 1:10 AM EST) [facility] Method Time Signature Neutrophils % 76.2 % [facility] LABORATORY Neutr Abs (ANC) 8.59 (H) 1.70 - [facility] 6.10 [facility] x10(3)/[facility] LABORATORY Lymphocytes % 11.0 % [facility] LABORATORY Lymphocytes Abs 1.2 0.9 - 3.2 [facility] x10(3)/[facility] LABORATORY Monocytes % 8.4 % [facility] LABORATORY Monocyte Abs 1.0 (H) 0.3 - 0.9 [facility] x10(3)/[facility] LABORATORY Eosinophils % 3.5 % [facility] LABORATORY Eosinophils Abs 0.4 0.0 - 0.4 [facility] x10(3)/[facility] LABORATORY Basophils % 0.5 % [facility] LABORATORY Basophils Abs 0.1 0.0 - 0.1 [facility] x10(3)/[facility] LABORATORY Immature Gran % 0.40 % [facility] LABORATORY Comment: Immature granulocytes(IG's)percentage an d absolute count will include metamyelocytes, myelocytes, and promyelo cytes. Blood smears from CBCs yielding IG's will be scanned manually for concor dance. If this scan disagrees with the automated IG or if promyelocytes are not ed, a manual differential will be performed. Melisa Gran Abs 0.05 (H) 0.00 - 0.04 x10(3)/[facility] LABORATORY Specimen Anatomical Collection Method Collection Time Receive d Time (Source) Location / / Volume Laterality Blood specimen 08/09/2017 1:10 AM 018 1:19 (specimen) EST AM EST Resulting Agency Comment Spec In Lab Yonathan Smith MD HEMATOLOGY ORDERABLES Performing Organization Address City/State/ZIP Code Phon e Number [place] [phone]OSPITAL LAB[address]ORY [address] (ABNORMAL) Hemogram (08/09/2017 1:10 AM EST) Analysis Performed At Patho logist Time Signature WBC 11.3 (H) 4.0 - 9.5 [facility] x[facility](3)/[facility] LABORATORY RBC 3.47 (L) 4.58 - [place] RYAN 5.54 [facility] x10(6)/[facility] LABORATORY Hemoglobin 10.0 (L) 13.7 - [facility] 16.[facility] gm/dL [facility] LABORATORY Hematocrit 31.9 (L) 40.5 - [facility] 48.5 % [facility] LABORATORY MCV 91.9 82.9 - [facility] 93.1 [facility] LABORATORY MCH 28.8 27.5 - [facility] 32.1 pg [facility] LABORATORY MCHC 31.3 (L) 32.0 - [facility] 35.7 gm/dL [facility] LABORATORY Platelets 234 145 - 357 [facility] x10(3)/[facility] LABORATORY RDWSD 54.0 (H) 36.0 - [facility] 45.0 [facility] LABORATORY RDWCV 16.2 (H) 11.4 - [facility] 13.8 % [facility] LABORATORY MPV 8.7 7.6 - 12.9 [facility] LABORATORY nRBC % Auto 0.0 % [facility] LABORATORY nRBC Abs Auto 0.000 0.000 - [facility] RYAN 0.000 [facility] x10(3)/[facility] LABORATORY Specimen Anatomical Collection Method Collection Time Receive d Time (Source) Location / / Volume Laterality Blood specimen 08/09/2017 1:10 AM 018 1:19 (specimen) EST AM EST Resulting Agency Comment Spec In Lab Yonathan Smith MD HEMATOLOGY ORDERABLES Performing Organization Address City/State/ZIP [place] [address] (ABNORMAL) Prothrombin Time (08/09/2017 1:10 AM EST) P athologist Signature PT 16.0 (H) 11.8 - 14.0 [facility] LABORATORY INR 1.3 (H) 0.9 - 1.1 [facility] LABORATORY Comment: An INR <2.0 [...] City/State/ZIP Code Phon e Number [place] [phone] HOSPITAL LAB[address]ORY Drive (ABNORMAL) Basic Metabolic Panel (non-fasting) (08/09/2017 1:10 AM EST) athologist Signature Glucose Lvl 108 65 - 199 [facility] mg/dL [facility] LABORATORY Comment: Diabetes: >=200 mg/dL plus symp toms BUN 34 (H) 10 - 20 mg/dL [facility] LABORATORY Creatinine 1.54 (H) 0.80 - 1.50 mg/dL [facility] LABORATORY Sodium 138 135 - 145 mmol/L [place] [...] Chloride 96 (L) 98 - 107 mmol/L [facility] LABORATORY CO2 29 22 - 31 mmol/L [facility] LABORATORY Anion Gap 13 5 - 15 mmol/L [facility] LABORATORY Calcium 8.3 (L) 8.5 - 10.5 mg/dL [facility] Linnea [facility] LABORATORY Estimated GFR 45 (L) >=[address] [facility] LABORATORY Comment: The reported eGFR should be multiplied b y 1.2 for patients. The MDRD is not an appropriate measure o f renal function for patients with body mass extremes or in patients with acute kidney failure. http://[employer]/DHnkdep http://[employer]/DHMCnkf Specimen Anatomical Collection Method Collection Time Receive d Time (Source) Location / / Volume Laterality Blood specimen 08/09/2017 1:10 AM 018 1:19 (specimen) EST AM EST Resulting Agency Comment Spec In Lab Yonathan Smith MD CHEMISTRY ORDERABLES Performing Organization Address City/[facility]/ZIP Code Phon e Number [address] POCT Glucose (08/09/2017 12:05 AM EST) P athologist Signature POC Glucose 128 65 - 199 [facility] mg/dL [facility] LABORATORY Comment: Supplemental ranges: <140 mg/dL before meals <180 mg/dL all other times of the day Specimen Anatomical Collection Method Collection Time Receive d Time (Source) Location / / Volume Laterality Blood specimen 08/09/2017 12:05 8 (specimen) AM EST 12:05 AM EST Yonathan Smith MD POINT OF CARE TEST ORDERABLE S Performing Organization Address City/State/[place] [address] (ABNORMAL) POCT Glucose (08/08/2017 7:36 PM EST) P athologist Signature POC Glucose 215 (H) 65 - 199 [facility] mg/dL [facility] LABORATORY Comment: Supplemental ranges: <140 mg/dL before meals <180 mg/dL all other times of the day Specimen Anatomical Collection Method Collection Time Receive d Time (Source) Location / / Volume Laterality Blood specimen 08/08/2017 7:36 PM 018 7:36 (specimen) EST PM EST Yonathan Smith MD POINT OF CARE TEST ORDERABLE S Performing Organization Address City/State/[place] [address] (ABNORMAL) POCT Glucose (08/08/2017 6:23 PM EST) athologist Signature POC Glucose 216 (H) 65 - 199 [facility]/dL [facility] LABORATORY Comment: Supplemental ranges: <140 mg/dL before meals <180 mg/dL all other times of the day Specimen Anatomical Collection Method Collection Time Receive d Time (Source) Location / / Volume Laterality Blood specimen 08/08/2017 6:23 PM 018 6:23 (specimen) EST PM EST Yonathan Smith MD POINT OF CARE TEST ORDERABLE S Performing Organization Address City/[facility]/ZIP Code Phon e Number [address] (ABNORMAL) APTT (08/08/2017 6:00 PM EST) athologist [facility] PTT 97 (H) 25 - 35 sec [facility] LABORATORY Comment: The recommended therapeutic range for fu ll dose, unfractionated heparin at [facility] is 80 ? 114 seconds. The use [...] Organization Address City/State/[place] [address] POCT Glucose (08/08/2017 4:42 PM EST) athologist Signature POC Glucose 78 65 - 199 [facility] mg/dL [facility] LABORATORY Comment: Supplemental ranges: <140 mg/dL before meals <180 mg/dL all other times of the day Specimen Anatomical Collection Method Collection Time Receive d Time (Source) Location / / Volume Laterality Blood specimen 08/08/2017 4:42 PM 018 4:42 (specimen) EST PM EST Yonathan Smith MD POINT OF CARE TEST ORDERABLE S Performing Organization Address City/[facility]/[place] [address] (ABNORMAL) POCT Glucose (08/08/2017 4:01 PM EST) athologist Signature POC Glucose 58 (L) 65 - 199 [facility]/dL [facility] LABORATORY Comment: Supplemental ranges: <140 mg/dL before meals <180 mg/dL all other times of the day Specimen Anatomical Collection Method Collection Time Receive d Time (Source) Location / / Volume Laterality Blood specimen 08/08/2017 4:01 PM 018 4:01 (specimen) EST PM EST Yonathan Smith MD POINT OF CARE TEST ORDERABLE S Performing Organization Address City/[facility]/[place] [address] POCT Glucose (08/08/2017 11:51 AM EST) athologist Signature POC Glucose 90 65 - 199 [facility] mg/dL [facility] LABORATORY Comment: Supplemental ranges: <140 mg/dL before meals <180 mg/dL all other times of the day Specimen Anatomical Collection Method Collection Time Receive d Time (Source) Location / / Volume Laterality Blood specimen 08/08/2017 11:51 8 (specimen) AM EST 11:51 AM EST Yonathan Smith MD POINT OF CARE TEST ORDERABLE S Performing Organization Address City/State/[place] [address] (ABNORMAL) APTT (08/08/2017 10:27 AM EST) athologist Signature PTT 64 (H) 25 - 35 sec [facility] LABORATORY Comment: The recommended therapeutic range for fu ll dose, unfractionated heparin at [facility] is 80 ? 114 seconds. The use [...] Smith MD HEMATOLOGY ORDERABLES Performing Organization Address City/[facility]/[place] [address] POCT Glucose (08/08/2017 8:02 AM EST) athologist Signature POC Glucose 178 65 - 199 [facility] mg/dL [facility] LABORATORY Comment: Supplemental ranges: <140 mg/dL before meals <180 mg/dL all other times of the day Specimen Anatomical Collection Method Collection Time Receive d Time (Source) Location / / Volume Laterality Blood specimen 08/08/2017 8:02 AM 018 8:02 (specimen) EST AM EST Yonathan Smith MD POINT OF CARE TEST ORDERABLE S Performing Organization Address City/[facility] [place] [address] (ABNORMAL) APTT (08/08/2017 4:51 AM EST) athologist Signature PTT >160 25 - 35 [facility] (Critical) sec [facility] LABORATORY Comment: Called by: HOWARD, Read back by: Melba Jaramillo, Date/Time:08/08/17 05:43. The recommended therapeutic range for fu ll dose, unfractionated heparin at [facility] is 80 ? 114 seconds. The use [...] Smith MD HEMATOLOGY ORDERABLES Performing Organization Address City/[facility]/[place] [address] (ABNORMAL) Differential, Automated (08/08/2017 4:51 AM EST) Patholo gist Method Time Signature Neutrophils % 77.9 % [facility] LABORATORY Neutr Abs (ANC) 8.17 (H) 1.70 - [facility] 6.10 [facility] x10(3)/[facility] LABORATORY Lymphocytes % 10.3 % [facility] LABORATORY Lymphocytes Abs 1.1 0.9 - 3.2 [facility] x10(3)/[facility] LABORATORY Monocytes % 7.0 % [facility] LABORATORY Monocyte Abs 0.7 0.3 - 0.9 [facility] x10(3)/[facility] LABORATORY Eosinophils % 3.6 % [facility] LABORATORY Eosinophils Abs 0.4 0.0 - 0.4 [facility] x10(3)/[facility] LABORATORY Basophils % 0.5 % [facility] LABORATORY Basophils Abs 0.0 0.0 - 0.1 [facility] x10(3)/[facility] LABORATORY Immature Gran % 0.70 % [facility] LABORATORY Comment: Immature granulocytes(IG's)percentage an d absolute count will include metamyelocytes, myelocytes, and promyelo cytes. Blood smears from CBCs yielding IG's will be scanned manually for concor dance. If this scan disagrees with the automated IG or if promyelocytes are not ed, a manual differential will be performed. Melisa Gran Abs 0.07 (H) 0.00 - 0.04 x10(3)/[facility] LABORATORY Specimen Anatomical Collection Method Collection Time Receive d Time (Source) Location / / Volume Laterality Blood specimen 08/08/2017 4:51 AM 018 5:14 (specimen) EST AM EST Resulting Agency Comment Spec In Lab Yonathan Smith MD HEMATOLOGY ORDERABLES Performing Organization Address City/State/[place] [address] (ABNORMAL) Hemogram (08/08/2017 4:51 AM EST) Analysis Performed At Patho logist Time Signature WBC 10.5 (H) 4.0 - 9.5 [facility] x10(3)/[facility] LABORATORY RBC 3.27 (L) 4.58 - [place] [facility]AN 5.54 [facility] x10(6)/[facility] LABORATORY Hemoglobin 9.3 (L) 13.7 - [facility] 16.5 gm/dL [facility] LABORATORY Hematocrit 30.3 (L) 40.5 - [facility] 48.5 % [facility] LABORATORY MCV 92.7 82.9 - [facility] 93.1 [facility] LABORATORY MCH 28.4 27.5 - [facility] 32.1 pg [facility] LABORATORY MCHC 30.7 (L) 32.0 - [facility] 35.7 gm/dL [facility] LABORATORY Platelets 252 145 - 357 [facility] x10(3)/[facility] LABORATORY RDWSD 54.6 (H) 36.0 - [facility] 45.0 [facility] RDWCV 16.2 (H) 11.4 - [facility] 13.8 % [facility] LABORATORY MPV 9.1 7.6 - 12.9 [facility] LABORATORY nRBC % Auto 0.0 % [facility] LABORATORY nRBC Abs Auto 0.000 0.000 - [facility] 0.000 [facility] x10(3)/[facility] LABORATORY Specimen Anatomical Collection Method Collection Time Receive d Time (Source) Location / / Volume Laterality Blood specimen 08/08/2017 4:51 AM 018 5:14 (specimen) EST AM EST Resulting Agency Comment Spec In Lab Yonathan Smith MD HEMATOLOGY ORDERABLES Performing Organization Address City/State/ZIP [place] [address] (ABNORMAL) Prothrombin Time (08/08/2017 4:51 AM EST) athologist Signature PT 18.1 (H) 11.8 - 14.0 [facility] LABORATORY INR 1.5 (H) 0.9 - 1.1 [facility] LABORATORY Comment: An INR <2.0 [...] City/State/ZIP Code Phon e Number [place] [phone] HOSPITAL LABORATORY Drive (ABNORMAL) Basic Metabolic Panel (non-fasting) (08/08/2017 4:51 AM EST) P athologist Signature Glucose Lvl 229 (H) 65 - 199 [facility] mg/dL [facility] LABORATORY Comment: Diabetes: >=200 mg/dL [...] Chloride 94 (L) 98 - 107 mmol/L [facility] LABORATORY CO2 25 22 - 31 mmol/L [facility] LABORATORY Anion Gap 17 (H) 5 - 15 mmol/L [facility] LABORATORY Calcium 7.9 (L) 8.5 - 10.5 mg/dL [facility] LABORATORY Estimated GFR 44 (L) >=60 [facility] LABORATORY Comment: The reported eGFR should be multiplied b y 1.2 for patients. The MDRD is not an appropriate measure o f renal function for patients with body mass extremes or in patients with acute kidney failure. http://[employer]/DHnkdep [email or web address]/DHMCnkf Specimen Anatomical Collection Method Collection Time Receive d Time (Source) Location / / Volume Laterality Blood specimen 08/08/2017 4:51 AM 018 5:14 (specimen) EST AM EST Resulting Agency Comment Spec In Lab Yonathan Smith MD CHEMISTRY ORDERABLES Performing Organization Address City/State/ZIP Code Phon e Number [address] POCT Glucose (08/08/2017 4:20 AM EST) athologist Signature POC Glucose 193 65 - 199 [facility] mg/dL [facility] LABORATORY Comment: Supplemental ranges: <140 mg/dL before meals <180 mg/dL all other times of the day Specimen Anatomical Collection Method Collection Time Receive d Time (Source) Location / / Volume Laterality Blood specimen 08/08/2017 4:20 AM 018 4:20 (specimen) EST AM EST Yonathan Smith MD POINT OF CARE TEST ORDERABLE S Performing Organization Address City/[facility]/ZIP Code Phon e Number [address] POCT Glucose (08/07/2017 11:11 PM EST) athologist Signature POC Glucose 124 65 - 199 [facility] LABORATORY Comment: Supplemental ranges: <140 mg/dL before meals <180 mg/dL all other times of the day Specimen Anatomical Collection Method Collection Time Receive d Time (Source) Location / / Volume Laterality Blood specimen 08/07/2017 11:11 8 (specimen) PM EST 11:11 PM EST Yonathan Smith MD POINT OF CARE TEST ORDERABLE S Performing Organization Address City/[facility]/ZIP Code Phon e Number [address] (ABNORMAL) APTT (08/07/2017 10:18 PM EST) athologist Signature PTT 114 (H) 25 - 35 sec [facility] LABORATORY Comment: The recommended therapeutic range for fu ll dose, unfractionated heparin at [facility] is 80 ? 114 seconds. The use [...] Organization Address City/State/ZIP Code Phon e Number [address] POCT Glucose (08/07/2017 8:10 PM EST) athologist Signature POC Glucose 140 65 - 199 [facility] mg/dL [facility] LABORATORY Comment: Supplemental ranges: <140 mg/dL before meals <180 mg/dL all other times of the day Specimen Anatomical Collection Method Collection Time Receive d Time (Source) Location / / Volume Laterality Blood specimen 08/07/2017 8:10 PM 018 8:10 (specimen) EST PM EST oYnathan Smith MD POINT OF CARE TEST ORDERABLE S Performing Organization Address City/State/ZIP Code Phon e Number [address] POCT Glucose (08/07/2017 5:27 PM EST) athologist Signature POC Glucose 187 65 - 199 [facility] mg/dL [facility] LABORATORY Comment: Supplemental ranges: <140 mg/dL before meals <180 mg/dL all other times of the day Specimen Anatomical Collection Method Collection Time Receive d Time (Source) Location / / Volume Laterality Blood specimen 08/07/2017 5:27 PM 018 5:27 (specimen) EST PM EST Yonathan Smith MD POINT OF CARE TEST ORDERABLE S Performing Organization Address City/State/[place] [address] POCT Glucose (08/07/2017 3:29 PM EST) athologist Signature POC Glucose 86 65 - 199 [facility] mg/dL [facility] LABORATORY Comment: Supplemental ranges: <140 mg/dL before meals <180 mg/dL all other times of the day Specimen Anatomical Collection Method Collection Time Receive d Time (Source) Location / / Volume Laterality Blood specimen 08/07/2017 3:29 PM 018 3:29 (specimen) EST PM EST Yonathan Smith MD POINT OF CARE TEST ORDERABLE S Performing Organization Address City/State/[place] [address] (ABNORMAL) APTT (08/07/2017 2:50 PM EST) athologist Signature PTT 60 (H) 25 - 35 sec [facility] LABORATORY Comment: The recommended therapeutic range for fu ll dose, unfractionated heparin at [facility] is 80 ? 114 seconds. The use [...] Smith MD HEMATOLOGY ORDERABLES Performing Organization Address City/[facility]/[place] [address] (ABNORMAL) POCT Glucose (08/07/2017 2:23 PM EST) athologist Signature POC Glucose 55 (L) 65 - 199 [facility] [facility] mg/dL [facility] Comment: Supplemental ranges: <140 mg/dL before meals <180 mg/dL all other times of the day Specimen Anatomical Collection Method Collection Time Receive d Time (Source) Location / / Volume Laterality Blood specimen 08/07/2017 2:23 PM 018 2:23 (specimen) EST PM EST Yonathan Smith MD POINT OF CARE TEST ORDERABLE S Performing Organization Address City/State/ZIP Code Phon e Number [place] [phone] [facility] [address]ORY [address] POCT Glucose (08/07/2017 12:08 PM EST) P athologist Signature POC Glucose 77 65 - 199 [facility] mg/dL [facility] Comment: Supplemental ranges: <140 mg/dL before meals <180 mg/dL all other times of the day Specimen Anatomical Collection Method Collection Time Receive d Time (Source) Location / / Volume Laterality Blood specimen 08/07/2017 12:08 8 (specimen) PM EST 12:08 PM EST Yonathan Smith MD POINT OF CARE TEST ORDERABLE S Performing Organization Address City/State/ZIP Code Phon e Number [address] (ABNORMAL) Differential, Automated (08/07/2017 7:30 AM EST) Patholo gist Method Time Signature Neutrophils % 73.8 % [facility] Neutr Abs (ANC) 7.17 (H) 1.70 - [facility] 6.10 [facility] x10(3)/[facility] LABORATORY Lymphocytes % 12.2 % [facility] Lymphocytes Abs 1.2 0.9 - 3.2 [facility] x10(3)/[facility] LABORATORY Monocytes % 9.0 % [facility] Monocyte Abs 0.9 0.3 - 0.9 [facility] x10(3)/[facility] LABORATORY Eosinophils % 3.9 % [facility] Eosinophils Abs 0.4 0.0 - 0.4 [facility] x10(3)/[facility] LABORATORY Basophils % 0.6 % [facility] Basophils Abs 0.1 0.0 - 0.1 [facility] x10(3)/[facility] LABORATORY Immature Gran % 0.50 % [facility] Comment: Immature granulocytes(IG's)percentage an d absolute count will include metamyelocytes, myelocytes, and promyelo cytes. Blood smears from CBCs yielding IG's will be scanned manually for concor dance. If this scan disagrees with the automated IG or if promyelocytes are not ed, a manual differential will be performed. Melisa Gran Abs 0.05 (H) 0.00 - 0.04 x10(3)/[facility] LABORATORY Specimen Anatomical Collection Method Collection Time Receive d Time (Source) Location / / Volume Laterality Blood specimen 08/07/2017 7:30 AM 018 7:45 (specimen) EST AM EST Resulting Agency Comment Spec In Lab Yonathan Smith MD HEMATOLOGY ORDERABLES Performing Organization Address City/State/ZIP [place] [address] (ABNORMAL) Hemogram (08/07/2017 7:30 AM EST) Analysis Performed At Patho logist Time Signature WBC 9.7 (H) 4.0 - 9.5 [facility] x10(3)/[facility] LABORATORY RBC 3.54 (L) 4.58 - [facility] 5.54 [facility] x10(6)/[facility] LABORATORY Hemoglobin 9.9 (L) 13.7 - [facility] 16.5 gm/dL [facility] Hematocrit 32.3 (L) 40.5 - [facility] 48.5 % [facility] MCV 91.2 82.9 - [facility] 93.1 [facility] LABORATORY MCH 28.0 27.5 - [facility] 32.1 pg [facility] MCHC 30.7 (L) 32.0 - [facility] 35.7 gm/dL [facility] Platelets 312 145 - 357 [facility] x10(3)/[facility] LABORATORY RDWSD 53.2 (H) 36.0 - [facility] 45.0 [facility] LABORATORY RDWCV 16.0 (H) 11.4 - [facility] 13.8 % [facility] MPV 8.9 7.6 - 12.9 [facility] LABORATORY nRBC % Auto 0.0 % [facility] nRBC Abs Auto 0.000 0.000 - [facility] 0.000 [facility] x10(3)/[facility] LABORATORY Specimen Anatomical Collection Method Collection Time Receive d Time (Source) Location / / Volume Laterality Blood specimen 08/07/2017 7:30 AM 018 7:45 (specimen) EST AM EST Resulting Agency Comment Spec In Lab Yonathan Smith MD HEMATOLOGY ORDERABLES Performing Organization Address City/State/ZIP Code Phon e Number [facility] [place] [address] (ABNORMAL) Basic Metabolic Panel (non-fasting) (08/07/2017 7:30 AM EST) athologist Signature Glucose Lvl 80 65 - 199 [facility] mg/dL [facility] Comment: Diabetes: >=200 mg/dL [...] estions. Chloride 99 98 - 107 mmol/L [facility] CO2 29 22 - 31 mmol/L [facility] Anion Gap 12 5 - 15 mmol/L [facility] Calcium 8.5 8.5 - 10.5 mg/dL [facility] LABORATORY Estimated GFR 59 (L) >=60 [facility] Comment: The reported eGFR should be multiplied b y 1.2 for patients. The MDRD is not an appropriate measure o f renal function for patients with body mass extremes or in patients with acute kidney failure. http://[employer]/DHnkdep http://[employer]/DHMCnkf Specimen Anatomical Collection Method Collection Time Receive d Time (Source) Location / / Volume Laterality Blood specimen 08/07/2017 7:30 AM 018 7:45 (specimen) EST AM EST Resulting Agency Comment Spec In Lab Yonathan Smith MD CHEMISTRY ORDERABLES Performing Organization Address City/[facility]/[place] [address] POCT Glucose (08/07/2017 7:27 AM EST) athologist Signature POC Glucose 81 65 - 199 [facility] mg/dL [facility] Comment: Supplemental ranges: <140 mg/dL before meals <180 mg/dL all other times of the day Specimen Anatomical Collection Method Collection Time Receive d Time (Source) Location / / Volume Laterality Blood specimen 08/07/2017 7:27 AM 018 7:27 (specimen) EST AM EST Yonathan Smith MD POINT OF CARE TEST ORDERABLE S Performing Organization Address [facility] Phon e Number [address] APTT (08/07/2017 7:04 AM EST) athologist Signature PTT 34 25 - 35 sec [facility] Comment: The recommended therapeutic range for fu ll dose, unfractionated heparin at [facility] is 80 ? 114 seconds. The use [...] Smith MD HEMATOLOGY ORDERABLES Performing Organization Address City/[facility]/ZIP [facility] [place] [address] (ABNORMAL) Prothrombin Time (08/07/2017 7:04 AM EST) athologist Signature PT 17.3 (H) 11.8 - 14.0 [facility] LABORATORY INR 1.4 (H) 0.9 - 1.1 [facility] Comment: An INR <2.0 [...] Smith MD HEMATOLOGY ORDERABLES Performing Organization Address City/[facility]/ZIP Code Phon e Number [address] POCT Glucose (08/07/2017 4:03 AM EST) athologist Signature POC Glucose 93 65 - 199 [facility] mg/dL [facility] Comment: Supplemental ranges: <140 mg/dL before meals <180 mg/dL all other times of the day Specimen Anatomical Collection Method Collection Time Receive d Time (Source) Location / / Volume Laterality Blood specimen 08/07/2017 4:03 AM 018 4:03 (specimen) EST AM EST Yonathan Smith MD POINT OF CARE TEST ORDERABLE S Performing Organization Address City/[facility]/ZIP Code Phon e Number [address] POCT Glucose (08/07/2017 12:04 AM EST) athologist Signature POC Glucose 107 65 - 199 [facility]dL [facility] Comment: Supplemental ranges: <140 mg/dL before meals <180 mg/dL all other times of the day Specimen Anatomical Collection Method Collection Time Receive d Time (Source) Location / / Volume Laterality Blood specimen 08/07/2017 12:04 8 (specimen) AM EST 12:04 AM EST Yonathan Smith MD POINT OF CARE TEST ORDERABLE S Performing Organization Address City/State/[place] [address] POCT Glucose (08/06/2017 7:56 PM EST) P athologist Signature POC Glucose 178 65 - 199 [facility] mg/dL [facility] Comment: Supplemental ranges: <140 mg/dL before meals <180 mg/dL all other times of the day Specimen Anatomical Collection Method Collection Time Receive d Time (Source) Location / / Volume Laterality Blood specimen 08/06/2017 7:56 PM 018 7:56 (specimen) EST PM EST Yonathan Smith MD POINT OF CARE TEST ORDERABLE S Performing Organization Address City/State/ZIP [place] [address] [facility] [address] TcPO2 (08/06/2017 2:32 PM EST) Component Value Ref Test Analysis Performed At Patholo gist Range Method Time Signature VB Text Department: Vascular Surgery Lab VASCUBASE Report Patient: [id number] (GREGORY HOANG) CPT: [id number] ICD10: I99.8 Referring Physician: YONATHAN SMITH ?? [...] Henrique Marks RN)[phone] (Given - Provider: Chiquis Mcgrtah RN)[phone] (Given - Provider: Chiquis Mcgrath RN) [...]
Routine documented in this encounter Care Teams Packing Shed Supervisor Relationship Specialty Start Date End Date Lovely Vicente MD PCP - General 04/16/[address] [place] [address] documented as of this encounter
--- OUTSIDE RECORDS SUMMARY | 2022-02-16 08:17 | XMS_ITS | Encounter Summary ---
:1945 [place] [address] Care Team Providers Name Role Phone Lovely Vicente MD Primary Care Provider Encounter Details Date Type Department Care Team Description 08/04/2017 Notes Only Cardiac Surgery Makayla Wilson MATRIX WORKER [facility] [place] [address] CARDIAC SURGERY [phone] [place], [place] 0[address] (Wo rk) Social History [...] Liz Poole PA [facility] Cardiology [place], [place] 0[address] (Wo rk) 03/26/2022 Office Visit Cardiology Vitaliy Nobles MD [facility] ER CARDIOLOGY [place], [place] 0[address] (Wo rk) documented as of this encounter Visit Diagnoses Not on filedocumented in this encounter Care Teams Radiation Safety Officer Relationship Specialty Start Date End Date Lovely Vicente MD PCP - General 04/16/[address] [place] [address] documented as of this encounter
--- OUTSIDE RECORDS SUMMARY | 2022-02-16 08:17 | XMS_ITS | Encounter Summary ---
:1945 Author Organization [facility] [address] Care Team Providers Name Role Phone Lovely Vicente MD Primary Care Provider Reason for Visit Auth/Cert Specialty Diagnoses / Procedures Referred By Contact Refer red To Contact Diagnoses Critical lower limb ischemia CELLULITIS RT FOOT Procedures EMERGENCY Referral ID Status Reason Start Date Expiration Date Visits Requ ested Visits Authorized [id number] 1 1 Encounter Details Date Type Department Care Team Description 08/04/2017 Laboratory Appointment Lab [address] [place] [address] Social History Tobacco Use Types Packs/Day [...] [facility] er Cardiology Dept [place], [place] 0[address] (Wo rk) 03/26/2022 Office Visit Cardiology Vitaliy Nobles MD [facility] ER CARDIOLOGY [place], [place] 0[address] (Wo rk) documented as of this encounter Visit Diagnoses Not on filedocumented in this encounter Care Teams Cooking Show Host Relationship Specialty Start Date End Date Lovely Vicente MD PCP - General 04/16/[address] [place] [address] documented as of this encounter
--- OUTSIDE RECORDS SUMMARY | 2022-02-16 08:17 | XMS_ITS | Encounter Summary ---
:1945 Author Organization [facility] [place] [address] Care Team Providers Name Role Phone Lovely Vicente MD Primary Care Provider Encounter Details Date Type Department Care Team Description 08/06/2017 Orders Only Vascular Surgery at [facility] [place] Eden Moss APRN Ischemia of foot [facility] Jorge [facility] [place] [address] VASCULAR SURGERY [phone] [place], [place] [address] (Wo rk) Social History Tobacco [...] [facility] er Cardiology Dept [place], [place] [address] (Wo rk) 03/26/2022 Office Visit Cardiology Vitaliy Nobles MD [facility] ER CARDIOLOGY [place], [place] 0[address] (Wo rk) documented as [...] 444 ms MUSE SYSTEM (Bezet) Calculated P [place] 44 degrees MUSE SYSTEM Calculated R [place] -31 degrees MUSE SYSTEM Calculated T [place] 106 degrees MUSE SYSTEM INTERPRETATION Normal sinus [...] Clement MD ECG ORDERABLES Performing Organization Address City/[facility]/ZIP Code Phon e Number MUSE SYSTEM (ABNORMAL) Prealbumin (08/06/2017 12:32 PM EST) P athologist Signature Prealbumin 19 (L) 20 - 40 [facility] mg/dL [facility] Comment: Prealbumin levels are generally lower in the pediatric population; adult concentrations are usually attained near puberty. Specimen Anatomical Collection Method Collection Time Receive d Time (Source) Location / / Volume Laterality Blood specimen 08/06/2017 12:32 8 1:15 (specimen) PM EST PM EST Resulting Agency Comment Spec In Lab Arik Clement MD CHEMISTRY ORDERABLES Performing Organization Address City/[facility]/ZIP [facility] [place] [address] (ABNORMAL) Basic Metabolic Panel (non-fasting) (08/06/2017 12:32 PM EST) P athologist Signature Glucose Lvl 92 65 - 199 [facility] mg/dL [facility] Comment: Diabetes: >=200 mg/dL plus symp toms BUN 29 (H) 10 - 20 mg/dL [facility] Creatinine 1.33 0.80 - 1.50 [...] Chloride 97 (L) 98 - 107 mmol/L [facility] CO2 25 22 - 31 mmol/L [facility] Anion Gap 16 (H) 5 - 15 mmol/L [facility] Calcium 8.5 8.5 - 10.5 mg/dL [facility]ORATORY Estimated GFR 53 (L) >=60 [facility] Comment: The reported eGFR should be multiplied b y 1.2 for patients. The MDRD is not an appropriate measure o f renal function for patients with body mass extremes or in patients with acute kidney failure. http://[employer]/DHnkdep http://[employer]/DHMCnkf Specimen Anatomical Collection Method Collection Time Receive d Time (Source) Location / / Volume Laterality Blood specimen 08/06/2017 12:32 8 1:15 (specimen) PM EST PM EST Resulting Agency Comment Spec In Lab Arik Clement MD CHEMISTRY ORDERABLES Performing Organization Address City/State/ZIP Code Phon [place] [address] (ABNORMAL) Hemogram (08/06/2017 12:32 PM EST) Analysis Performed At Patho logist Time Signature WBC 11.8 (H) 4.0 - 9.5 [facility] x10(3)/[facility] RBC 3.49 (L) 4.58 - [facility] 5.54 [facility] x10(6)/[facility] LABORATORY Hemoglobin 9.9 (L) 13.7 - [facility] 16.5 gm/dL [facility] Hematocrit 32.0 (L) 40.5 - [facility] 48.5 % [facility] MCV 91.7 82.9 - [facility] 93.1 [facility] LABORATORY MCH 28.4 27.5 - [facility] 32.1 pg [facility] MCHC 30.9 (L) 32.0 - [facility] 35.7 gm/dL [facility] Platelets 326 145 - 357 [facility] x10(3)/[facility] LAB[facility]ATORY RDWSD 53.4 (H) 36.0 - [facility] 45.0 [facility] LABORATORY RDWCV 16.0 (H) 11.4 - [facility] 13.8 % [facility] MPV 9.1 7.6 - 12.9 [facility] LABORATORY nRBC % Auto 0.0 % [facility] nRBC Abs Auto 0.000 0.000 - [facility] 0.000 [facility] x10(3)/[facility] LABORATORY Specimen Anatomical Collection Method Collection Time Receive d Time (Source) Location / / Volume Laterality Blood specimen 08/06/2017 12:32 8 1:15 (specimen) PM EST PM EST Resulting Agency Comment Spec In Lab Arik Clement MD HEMATOLOGY ORDERABLES Performing Organization Address City/State/[place] [address] documented in this encounter Visit Diagnoses Diagnosis Ischemia of foot Unspecified circulatory system disorder documented in this encounter Care Teams Patient Sitter Relationship Specialty Start Date End Date Lovely Vicente MD PCP - General 04/16/[address] [place] [address] documented as of this encounter
--- OUTSIDE RECORDS SUMMARY | 2022-02-16 08:17 | XMS_ITS | Encounter Summary ---
:1945 Author Organization [facility] [place] [address] Care Team Providers Name Role Phone Lovely Vicente MD Primary Care Provider Reason for Visit Reason Comments Deep Vein Thrombosis Auth/Cert Specialty Diagnoses / Procedures Referred By Contact Refer red To Contact Diagnoses Critical lower limb ischemia CELLULITIS RT FOOT Procedures EMERGENCY Referral ID Status Reason Start Date Expiration Date Visits Requ ested Visits Authorized [id number] 1 1 Encounter Details Date Type Department Care Team Description 08/04/2017 Office Visit Vascular Surgery at Arik Clement Cr itical lower limb [facility] ischemia [facility] [address] [place], [place] VASCULAR SURGERY [id number] [place] [address] [phone] Social History Tobacco Use Types Packs/Day Years [...] was discharged on Coumadin. ??He presented to [facility] on 07/20 with mottled toes on the [...] 02/19/2022 Office Visit Cardiology Liz Poole PA [facility] Medical [facility] Cardiology Dept [place], [place] 0[address] (Wo lissa) 03/26/2022 Office Visit Cardiology Vitaliy Nobles MD [facility] CARDIOLOGY [place], [place] [address] (Mikayla alcaraz) documented as of this encounter Visit Diagnoses Diagnosis Critical lower limb ischemia Unspecified circulatory system disorder documented in this encounter Care Teams Wood Carver Relationship Specialty Start Date End Date Lovely Vicente MD PCP - General 04/16/[address] [place] [address] documented as of this encounter
--- OUTSIDE RECORDS SUMMARY | 2022-02-16 08:17 | XMS_ITS | Encounter Summary ---
:1945 Author Organization [facility] [place] [address] Care Team Providers Name Role Phone Lovely Vicente MD Primary Care Provider Encounter Details Date Type Department Care Team Description 08/02/2017 Telephone Pain Management at Angeles [place]eno, [place] [address] Social History Tobacco Use Types Packs/Day [...] Management Center Preauthorization Request Patient: Don Fatima [id number] Fax received from [email or web address] requesting we obtain prior authorization for Lidocaine patches prescribed by Barbra Soares APRN. RX insurance plan: [employer] insurance telephone: [phone] Patient Diagnosis: right foot pain secondary to PVD and ischemia Previous medications attempted: Tylenol, Tramadol, Dilaudid The following action was taken after discussion with the field service tech: _x_ pharmacy informed Authorized dosage or amount: 5% on patch on for 12 hours, then remove for 12 hours. Angeles Rodrigez, RN documented in this encounter Plan of Treatment Upcoming Encounters Date Type Specialty Care Team Description 02/19/2022 Laboratory Appointment Lab 02/19/2022 Office Visit Cardiology Liz Poole PA [facility] Medical [facility] er Cardiology Dept [place], [place] 0[address] (Wo rk) 03/26/2022 Office Visit Cardiology Vitaliy Nobles MD [facility] ER CARDIOLOGY [place], [place] 0375 (Wo rk) documented as of this encounter Visit Diagnoses Not on filedocumented in this encounter Care Teams Credit Associate Relationship Specialty Start Date End Date Lovely Vicente MD PCP - General 04/16/[address] [place] [address] documented as of this encounter
--- OUTSIDE RECORDS SUMMARY | 2022-02-16 08:17 | XMS_ITS | Encounter Summary ---
:1945 Author Organization [facility] [place] [address] Care Team Providers Name Role Phone Lovely Vicente MD Primary Care Provider Reason for Visit Auth/Cert Specialty Diagnoses / Procedures Referred By Contact Refer red To Contact Diagnoses Critical lower limb ischemia CELLULITIS RT FOOT Procedures EMERGENCY Referral ID Status Reason Start Date Expiration Date Visits Requ ested Visits Authorized [id number] 1 1 Encounter Details Date Type Department Care Team Description 08/04/2017 Office Visit Cardiology at [facility] Danette Maxwell Incisional pain; [facility] A, PANTS CUTTER Ischemic cardiomyopathy; [facility] ASCVD (arteriosclerotic card iovascular disease); [place], [place] Systolic heart failure, unspecified hear t failure chronicity [phone] CARDIOLOGY [phone] [place], [place] 0[address] Social History Tobacco Use Types [...] in this encounter Progress Notes Danette Maxwell, PANTS CUTTER - 08/04/2017 3:00 PM EST ID and [...] painful 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 [...] Poole PA [facility] Cardiology Dept [place], [place] 0[address] (Wo rk) 03/26/2022 Office Visit Cardiology Vitaliy Nobles MD [facility] CARDIOLOGY [place], [place] 0[address] (Wo rk) documented as of [...] sensation documented in this encounter Care Teams Regional Driver Relationship Specialty Start Date End Date Lovely Vicente MD PCP - General 04/16/[address] [place] [address] documented as of this encounter
--- OUTSIDE RECORDS SUMMARY | 2022-02-16 08:17 | XMS_ITS | Encounter Summary ---
:1945 [place] [address] Care Team Providers Name Role Phone Lovely Vicente MD Primary Care Provider Encounter Details Date Type Department Care Team Description 08/04/2017 Notes Only Pain Management at Barbra Bruno, [place] [facility] [place] [address] [place] [address] [phone] (Wo rk) Social History Tobacco Use Types [...] bid) at this time. Barbra Soares, MSN, WORKDAY DIRECTOR-BC, [facility] documented in this encounter Plan of Treatment Upcoming Encounters Date Type Specialty Care Team Description 02/19/2022 Laboratory Appointment Lab 02/19/2022 Office Visit Cardiology Liz Poole PA [facility] er Cardiology [place], [place] [address] (Wo rk) 03/26/2022 Office Visit Cardiology Vitaliy Nobles MD [facility] ER CARDIOLOGY [place], [place] 0[address] (Wo rk) documented as of this encounter Visit Diagnoses Not on filedocumented in this encounter Care Teams Metal Polisher Relationship Specialty Start Date End Date Lovely Vicente MD PCP - General 04/16/[address] [place] [address] documented as of this encounter
--- OUTSIDE RECORDS SUMMARY | 2022-02-16 08:17 | XMS_ITS | Encounter Summary ---
:1945 Author Organization [facility] [place] [address] Care Team Providers Name Role Phone Lovely Vicente MD Primary Care Provider Reason for Visit Reason Comments Foot Ulcer WOUND CHECK Auth/Cert Specialty Diagnoses / Procedures Referred By Contact Refer red To Contact Diagnoses Critical lower limb ischemia CELLULITIS RT FOOT Procedures EMERGENCY Referral ID Status Reason Start Date Expiration Date Visits Requ ested Visits Authorized [id number] 1 1 Encounter Details Date Type Department Care Team Description 08/06/2017 [facility] ischemia [facility] [address] [place], [place] VASCULAR SURGERY [id number] [place] [address] [phone] Social History Tobacco Use Types Packs/Day Years [...] Smith MD - 08/06/2017 1:00 PM EST [facility] staff: 1. RIGHT leg CLI Interval [...] Visit Cardiology Liz Poole PA [facility] Cardiology Dept [place], [place] [address] (Wo rk) 03/26/2022 Office Visit Cardiology Vitaliy Nobles MD [facility] ER CARDIOLOGY [place], [place] [address] (Wo rk) documented as of this encounter Visit Diagnoses Diagnosis Critical lower limb ischemia Unspecified circulatory system disorder documented in this encounter Care Teams Potash Flaker Relationship Specialty Start Date End Date Lovely Vicente MD PCP - General 04/16/[address] [place] [address] documented as of this encounter
--- OUTSIDE RECORDS SUMMARY | 2022-02-16 08:17 | XMS_ITS | Encounter Summary ---
:1945 Author Organization [facility] [place] [address] Care Team Providers Name Role Phone Lovely Vicente MD Primary Care Provider Reason for Visit Auth/Cert Specialty Diagnoses / Procedures Referred By Contact Refer red To Contact Diagnoses Critical lower limb ischemia CELLULITIS RT FOOT Procedures EMERGENCY Referral ID Status Reason Start Date Expiration Date Visits Requ ested Visits Authorized [id number] 1 1 Encounter Details Date Type Department Care Team Description 08/06/2017 Laboratory Appointment Lab at [facility] [place] [place] [address] Social History Tobacco Use Types Packs/Day [...] [facility] er Cardiology Dept [place], [place] [address] (Wo rk) 03/26/2022 Office Visit Cardiology Vitaliy Nobles MD [facility] ER CARDIOLOGY [place], [place] [address] (Wo rk) documented as of [...] Signature Prealbumin 19 (L) 20 - 40 [facility] Comment: Prealbumin levels are generally lower in the pediatric population; adult concentrations are usually attained near puberty. Specimen Anatomical Collection Method Collection Time Receive d Time (Source) Location / / Volume Laterality Blood specimen 08/06/2017 12:32 8 1:15 (specimen) PM EST PM EST Resulting Agency Comment Spec In Lab Arik Clement MD CHEMISTRY ORDERABLES Performing Organization Address City/State/[place] [address] (ABNORMAL) Basic Metabolic Panel (non-fasting) (08/06/2017 12:32 PM EST) P athologist Signature Glucose Lvl 92 65 - 199 [facility] mg/dL [facility] Comment: Diabetes: >=200 mg/dL [...] mg/dL [facility] Estimated GFR 53 (L) >=60 [facility] Comment: The reported eGFR should be multiplied b y 1.2 for patients. The MDRD is not an appropriate measure o f renal function for patients with body mass extremes or in patients with acute kidney failure. http://S&N Airoflo/DHnkdep http://S&N Airoflo/DHnkf Specimen Anatomical Collection Method Collection Time Receive d Time (Source) Location / / Volume Laterality Blood specimen 08/06/2017 12:32 8 1:15 (specimen) PM EST PM EST Resulting Agency Comment Spec In Lab Arik Clement MD CHEMISTRY ORDERABLES Performing Organization Address City/State/[place] [address] (ABNORMAL) Hemogram (08/06/2017 12:32 PM EST) Analysis Performed At Patho logist Time Signature WBC 11.8 (H) 4.0 - 9.5 [facility] x10(3)/[facility] LABORATORY RBC 3.49 (L) 4.58 - [facility] 5.54 [facility] x10(6)/[facility] LABORATORY Hemoglobin 9.9 (L) 13.7 - [facility] 16.[facility] gm/dL [facility] Hematocrit 32.0 (L) 40.5 - [facility] 48.5 % [facility] MCV 91.7 82.9 - [facility] 93.1 fL [facility] MCH 28.4 27.5 - [place] R[facility]AN 32.1 pg [facility] MCHC 30.9 (L) 32.0 - [facility] 35.7 gm/dL [facility] Platelets 326 145 - 357 [facility] x10(3)/[facility] LABORATORY RDWSD 53.4 (H) 36.0 - [facility] 45.0 [facility] LABORATORY RDWCV 16.0 (H) 11.4 - [facility] 13.8 % [facility] MPV 9.1 7.6 - 12.9 [facility] LABORATORY nRBC % Auto 0.0 % [facility] LABOR[facility]ORY nRBC Abs Auto 0.000 0.000 - [facility] 0.000 [facility] x10(3)/[facility] LABORATORY Specimen Anatomical Collection Method Collection Time Receive d Time (Source) Location / / Volume Laterality Blood specimen 08/06/2017 12:32 8 1:15 (specimen) PM EST PM EST Resulting Agency Comment Spec In Lab Arik Clement MD HEMATOLOGY ORDERABLES Performing Organization Address City/State/[place] [address] documented in this encounter Visit Diagnoses Diagnosis Ischemia of foot Unspecified circulatory system disorder documented in this encounter Care Teams Field Secretary Relationship Specialty Start Date End Date Lovely Vicente MD PCP - General 04/16/[address] [place] [address] documented as of this encounter
--- OUTSIDE RECORDS SUMMARY | 2022-02-16 08:17 | XMS_ITS | Encounter Summary ---
:1945 Author Organization [facility] [place] [address] Care Team Providers Name Role Phone Lovely Vicente MD Primary Care Provider Reason for Visit Reason Comments Pain Management Ankle Pain Toe Pain Encounter Details Date Type Department Care Team Description 07/30/2017 Office Visit Pain Management at Barbra Soares, Per ipheral neuropathy [place] INTELLECTUAL PROPERTY MANAGER due to ischemia [facility] [address], [place], [place] [phone] Social History Tobacco Use Types Packs/Day Years [...] Soares APRN - 07/30/2017 1:45 PM EST [facility] [place] [address] Phone: PAIN MANAGEMENT NEW PATIENT / CONSULTATION NOTE DATE OF VISIT 07/30/2017 Patient Don Fatima 1945 REFERRING PROVIDER Lovely Vicente MD [address] [place] [address] PRIMARY CARE PROVIDER Lovely Vicente MD CHIEF [...] much relief PAST THERAPIES: Nothing MEDICATIONS The [place] Prescription Monitoring Program was checked and no [...] SETUP performed by Manny Mcknight MD at [facility] OR ??? PRO CABG, ARTERIAL, SINGLE N/A 07/07/2017 @CABG, USING ARTERIAL GRAFT;SINGLE ARTERIAL GRAFT (WRVU 33.75) performed by Yuan Retana MD at [facility] OR ??? PRO CABG, ARTERY-VEIN, TWO N/A 07/07/2017 @CABG, TWO VENOUS GRAFTS & ARTERIAL GRAFT (WRVU 7.93) performed by Yuan Retana MD at [facility] OR ??? PRO COLONOSCOPY, REMV LESN, SNARE 01/16/2014 COLONOSCOPY, POLYPECTOMY, REMOVAL LESION BY SNARE performed by Nohemi Jaimes MD at [facility] ENDOSCOPY ??? PRO ENDOSCOPY W/VIDEO-ASST VEIN HARVEST, CABG Right 07/07/2017 ENDOSCOPIC HARVEST VEIN(S) FOR CABG (WRVU 0.31) performed by Yuan Retana MD at [facility] OR ??? PRO THYROIDECTOMY 03/28/2013 [...] referral, Lovely Vicente MD [address] [place] [address]. Barbra Soares, MSN, CAR CLEANING SUPERVISOR-BC, INTELLECTUAL PROPERTY MANAGER Nurse Practitioner Pain Management Center documented in this encounter Plan of Treatment Upcoming Encounters Date Type Specialty Care Team Description 02/19/2022 Laboratory Appointment Lab 02/19/2022 Office Visit Cardiology Liz Poole PA [facility] er Cardiology Dept [place], [place] [address] (Wo rk) 03/26/2022 Office Visit Cardiology Vitaliy Nobles MD [facility] ER CARDIOLOGY [place], [place] [address] (Wo rk) documented as of this encounter Visit Diagnoses Diagnosis 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
--- OUTSIDE RECORDS SUMMARY | 2022-02-16 08:17 | XMS_ITS | Encounter Summary ---
:1945 Author Organization [facility] [place] [address] Care Team Providers Name Role Phone Lovely Vicente MD Primary Care Provider Encounter Details Date Type Department Care Team Description 08/03/2017 Telephone Pain Management at Angeles [place], [place] [address] Social History Tobacco Use Types Packs/Day [...] Management Center Preauthorization Request Patient: Don Fatima [id number] Fax received from [facility] requesting we obtain prior authorization for Lidocaine Patches prescribed by Barbra Soares APRN. RX insurance plan: [facility] insurance telephone: [phone] Patient ?? Diagnosis: right foot pain secondary to PVD and ischemia ?? Previous medications attempted: Tylenol, Tramadol, Dilaudid Authorization/Reference number: [id number], PBP Code 801 _x_ denied, provider and patient informed _x_ appeal initiated by provider, patient informed Angeles Rodrigez, RN documented in this encounter Plan of Treatment Upcoming Encounters Date Type Specialty Care Team Description 02/19/2022 Laboratory Appointment Lab 02/19/2022 Office Visit Cardiology [facility] Cardiology Dept [place], [place] [address] (Wo rk) 03/26/2022 Office Visit Cardiology Vitaliy Nobles MD [facility] ER CARDIOLOGY [place], [place] [address] (Wo rk) documented as of this encounter Visit Diagnoses Not on filedocumented in this encounter Care Teams Veterinary Anatomist Relationship Specialty Start Date End Date Lovely Vicente MD PCP - General 04/16/15 [facility] [address] [place] [address] documented as of this encounter
--- OUTSIDE RECORDS SUMMARY | 2022-02-16 08:17 | XMS_ITS | Encounter Summary ---
:1945 Author [place] [address] Care Team Providers Name Role Phone Lovely Vicente MD Primary Care Provider Encounter Details Date Type Department Care Team Description 08/03/2017 Hospital Encounter Radiology Library at [place], Tommy Mijares [facility] [place] [address] VASCULAR SURGERY [phone] [place], [place] [address] (Wo rk) Social History Tobacco [...] Cardiology Liz Poole PA [facility] Cardiology Dept [place], [place] [address] (Wo rk) 03/26/2022 Office Visit Cardiology Vitaliy Nobles MD [facility] CARDIOLOGY [place], [place] [address] (Wo rk) documented as of [...] Address City/State/ZIP Code Phon e Number RAD [place], [place] documented in this encounter Visit Diagnoses Diagnosis Pain Generalized pain documented in this encounter Care Teams Brusher Hand Relationship Specialty Start Date End Date Lovely Vicente MD PCP - General 04/16/[address] [place] [address] documented as of this encounter
--- OUTSIDE RECORDS SUMMARY | 2022-02-16 08:17 | XMS_ITS | Encounter Summary ---
:1945 [place] [address] Care Team Providers Name Role Phone Lovely Vicente MD Primary Care Provider Encounter Details Date Type Department Care Team Description 08/04/2017 Notes Only Cardiac Surgery Makayla Wilson APRN [facility] [place] [address] CARDIAC SURGERY [phone] [place], [place] [address] (Wo rk) Social History Tobacco [...] [facility]ole [facility] [place] [place] [address] (Wo rk) 03/26/2022 Office Visit Cardiology Vitaliy Nobles MD [facility] ER CARDIOLOGY [place], [place] [address] (Wo rk) documented as of this encounter Visit Diagnoses Not on filedocumented in this encounter Care Teams Senior Systems Programmer Relationship Specialty Start Date End Date Lovely Vicente MD PCP - General 04/16/[address] [place] [address] documented as of this encounter
--- OUTSIDE RECORDS SUMMARY | 2022-02-16 08:17 | XMS_ITS | Encounter Summary ---
:1945 [place] [address] Care Team Providers Name Role Phone Lovely Vicente MD Primary Care Provider Encounter Details Date Type Department Care Team Description 07/29/2017 Telephone Pain Aurelia Crawford MD [facility] [place] [address] PAIN CLINIC [phone] [place], [place] [address] (Wo rk) Social History Tobacco [...] Office Visit Cardiology Liz Poole PA [facility] er Cardiology Dept [place], [place] [address] (Wo rk) 03/26/2022 Office Visit Cardiology Vitaliy Nobles MD [facility] CARDIOLOGY [place], [place] [address] (Wo rk) documented as of this encounter Visit Diagnoses Not on filedocumented in this encounter Care Teams Director Of Property Management Relationship Specialty Start Date End Date Lovely Vicente MD PCP - General 04/16/[address] [place] [address] documented as of this encounter
--- OUTSIDE RECORDS SUMMARY | 2022-02-16 08:17 | XMS_ITS | Encounter Summary ---
:1945 [place] [address] Care Team Providers Name Role Phone Lovely Vicente MD Primary Care Provider Reason for Visit Auth/Cert Specialty Diagnoses / Procedures Referred By Contact Refer red To Contact Diagnoses Critical lower limb ischemia CELLULITIS RT FOOT Procedures EMERGENCY Referral ID Status Reason Start Date Expiration Date Visits Requ ested Visits Authorized [id number] 1 1 Encounter Details Date Type Department Care Team Description 08/09/2017 Anesthesia Event Main Operating Room Daniele Lizama MD [facility] [place] [address] [facility] Rob Jones MD [facility] [place] [address] [place] [address] Anesthesia Record Procedure Summary Procedure Name [...] by midline; 08/16/17; 1047 Shayy Fuller RN Kenna Dory vicente RN Incision 07/07/17; 1432; knee [...] Knowles, Dory arm), right; VAMSI Rios, RN dndc-mss-fmvmzx catheter system; 20 gauge; 08/16/17; 1047 PIV 07/29/17; 1413; median 07/29/17 1413 by 08/16/17 1047 by cubital vein (antecubital Magdalene Hickey Williams, Dory fossa), left; VAMSI Wyatt, RN adek-hxj-kaqfnr catheter system; 20 gauge; 08/16/17; 1047 PIV 08/06/17; 1742; cephalic 08/06/17 1742 by 0920 by vein (lateral side of Taylor Laureano Danah y, Caitlyn C, arm), right; VAMSI BONNER kvvp-wji-owugjg catheter system; 22 gauge, 1 in length; Eliseo LAUREANO RN VAS; distraction, intradermal injection, tolerated well, appears comfortable; 0; 08/16/17; 0920 Wound 08/07/17; 1335; knee; 08/07/17 1335 by 08/16/17 1047 by laceration; wound occured Barbara Albert iams, Dory FARM CROPS TEACHER; 08/16/17; 1047 VAMSI Alonzo, RN PIV 08/07/17; 1734; cephalic 08/07/17 1734 by 1047 by vein (lateral side of Kendrick, Carlos W, Willia ms, Dory arm), left; MARCIE Wyatt RN hdnv-hvn-jtvoeq catheter system; 22 gauge; distraction, intradermal injection, [...] Santillan MD - 08/09/2017 9:01 AM EST [facility] Department of Anesthesiology Post-procedure Note Patient: Don Fatima Procedure Summary Date Anesthesia Start Anesthesia Stop Room / Location 08/09/17 0802 0901 [facility] OR 14 / [facility] MAIN OR Procedure Diagnosis Surgeon Responsible Provider AMPUTATION, 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 Nerve [...] SETUP performed by Manny Mcknight MD at [facility] MAIN OR ??? PRO CABG, ARTERIAL, SINGLE N/A 07/07/2017 @CABG, USING ARTERIAL GRAFT;SINGLE ARTERIAL GRAFT (WRVU 33.75) performed by Yuan Retana MD at [facility] MAIN OR ??? PRO CABG, ARTERY-VEIN, TWO N/A 07/07/2017 @CABG, TWO VENOUS GRAFTS & ARTERIAL GRAFT (WRVU 7.93) performed by Yuan Retana MD at [facility] MAIN OR ??? PRO COLONOSCOPY, REMV LESN, SNARE 01/16/2014 COLONOSCOPY, POLYPECTOMY, REMOVAL LESION BY SNARE performed by Nohemi Jaimes MD at [facility] ENDOSCOPY ??? PRO ENDOSCOPY W/VIDEO-ASST VEIN HARVEST, CABG Right 07/07/2017 ENDOSCOPIC HARVEST VEIN(S) FOR CABG (WRVU 0.31) performed by Yuan Retana MD at [facility] MAIN OR ??? PRO THYROIDECTOMY 03/28/2013 THYROIDECTOMY, TOTAL OR COMPLETE performed by Manny Mcknight MD at [facility] MAIN OR Social History Substance [...] adequate IV access. Brody Santillan MD PGY-2, Tile Setter Supervisor Pager #[phone] Anesthesiology Staff (Dewhirst): Pre-op summary note as [...] [facility] [place], [place] [address] (Wo rk) 03/26/2022 Office Visit Cardiology Vitaliy Nobles MD [facility] ER CARDIOLOGY [place], [place] [address] (Wo rk) documented as [...] Length: 10 cm Gauge: 21 Needle Type: K-upycu-ovzgf Medication injection made in crementally with aspirations. [...] Procedure) documented in this encounter Care Teams Hazardous Materials Tanker Driver Relationship Specialty Start Date End Date Lovely Vicente MD PCP - General 04/16/[address] [place] [address] documented as of this encounter
--- OUTSIDE RECORDS SUMMARY | 2022-02-16 08:17 | XMS_ITS | Encounter Summary ---
:1945 Author Organization [facility] [place] [address] Care Team Providers Name Role Phone Lovely Vicente MD Primary Care Provider Reason for Visit Auth/Cert Specialty Diagnoses / Procedures Referred By Contact Refer red To Contact Diagnoses Critical lower limb ischemia CELLULITIS RT FOOT Procedures EMERGENCY Referral ID Status Reason Start Date Expiration Date Visits Requ ested Visits Authorized [id number] 1 1 Encounter Details Date Type Department Care Team Description 08/06/2017 Hospital En[facility] [place] [address] Social History Tobacco Use Types Packs/Day [...] [facility] Cardiology Dept [place], [place] [address] (Wo rk) 03/26/2022 Office Visit Cardiology Vitaliy Nobles MD [facility] CARDIOLOGY [place], [place] [address] (Wo rk) documented as of this encounter Visit Diagnoses Not on filedocumented in this encounter Care Teams Woodworking Belt Sander Relationship Specialty Start Date End Date Lovely Vicente MD PCP - General 04/16/[address] [place] [address] documented as of this encounter
--- OUTSIDE RECORDS SUMMARY | 2022-02-16 08:17 | XMS_ITS | Encounter Summary ---
:1945 Author Organization [facility] [place] [address] Care Team Providers Name Role Phone Lovely Vicente MD Primary Care Provider Reason for Visit Auth/Cert Specialty Diagnoses / Procedures Referred By Contact Refer red To Contact Diagnoses Critical lower limb ischemia CELLULITIS RT FOOT Procedures EMERGENCY Referral ID Status Reason Start Date Expiration Date Visits Requ ested Visits Authorized [id number] 1 1 Encounter Details Date Type Department Care Team Description 08/04/2017 [facility] [place] thrombosis of [facility] [place] [phone] Social History Tobacco Use Types Packs/Day Years [...] Laboratory Appointment Lab 02/19/2022 Office Visit Cardiology Lzi Poole PA [facility] Cardiology Dept [place], [place] [address] (Wo rk) 03/26/2022 Office Visit Cardiology Vitaliy Nobles MD [facility] CARDIOLOGY [place], [place] [address] (Wo rk) documented as of this encounter Procedures Procedure Name Priority Date/Time Associated Diagnosis Comme [facility] DUPLEX FOR DVT, STAT 08/04/2017 1:08 PM 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 documented in this encounter Results Duplex for DVT, Leg, Unilat (08/04/2017 1:08 PM EST) Component Value Ref Test Analysis Performed At [facility] Range Method Time Signature VB Text Department: Vascular Surgery Lab VASCUBASE Report Patient: [id number] (DON HOANG) CPT: 11461 ICD10: I82.541 Referring Physician: TAMIKO HUTSON ?? [...] extremity documented in this encounter Care Teams Head Of Acquisitions Relationship Specialty Start Date End Date Lovely Vicente MD PCP - General 04/16/[address] [place] [address] documented as of this encounter
--- OUTSIDE RECORDS SUMMARY | 2022-02-16 08:17 | XMS_ITS | Encounter Summary ---
:1945 Author Organization [facility] [place] [address] Care Team Providers Name Role Phone Lovely Vicente MD Primary Care Provider Encounter Details Date Type Department Care Team Description 07/29/2017 Transcribe Orders Laboratory Lovely Vicente MD [address] [address] [place], [place] [address] (Mikayla alcaraz) Social History Tobacco Use Types [...] PA [facility] er Cardiology Dept [place], [place] [address] (Wo rk) 03/26/2022 Office Visit Cardiology Vitaliy Nobles MD [facility] ER CARDIOLOGY [place], [place] [address] (Wo rk) documented as of this encounter Visit Diagnoses Not on filedocumented in this encounter Care Teams Rod Welder Relationship Specialty Start Date End Date Lovely Vicente MD PCP - General 04/16/[address] [place] [address] documented as of this encounter
--- OUTSIDE RECORDS SUMMARY | 2022-02-16 08:17 | XMS_ITS | Encounter Summary ---
:1945 [place] [address] Care Team Providers Name Role Phone Lovely Vicente MD Primary Care Provider Encounter Details Date Type Department Care Team Description 08/04/2017 Orders Only Cardiac Surgery Makayla Wilson APRN [facility] [place] [address] CARDIAC SURGERY [phone] [place], [place] [address] (Wo rk) Social History Tobacco [...] [facility] er Cardiology Dept [place], [place] [address] (Wo rk) 03/26/2022 Office Visit Cardiology Vitaliy Nobles MD [facility] CARDIOLOGY [place], [place] [address] (Wo rk) documented as of this encounter Visit Diagnoses Not on filedocumented in this encounter Care Teams Novelty Twister Tender Relationship Specialty Start Date End Date Lovely Vicente MD PCP - General 04/16/[address] [place] [address] [address] [facility] [place] [address] documented as of this encounter
--- OUTSIDE RECORDS SUMMARY | 2022-02-16 08:17 | XMS_ITS | Encounter Summary ---
:1945 [place] [address] Care Team Providers Name Role Phone Lovely Vicente MD Primary Care Provider Encounter Details Date Type Department Care Team Description 08/03/2017 Hospital Encounter [facility] [place], Tommy Mijares [facility] [place] [address] VASCULAR SURGERY [phone] [place], [place] [address] (Wo rk) Social History Tobacco [...] Poole PA [facility] Cardiology Dept [place], [place] [address] (Wo rk) 03/26/2022 Office Visit Cardiology Vitaliy Nobles MD [facility] CARDIOLOGY [place], [place] [address] (Wo rk) documented as of [...] Address City/State/ZIP Code Phon e Number RAD [place], [place] documented in this encounter Visit Diagnoses Diagnosis Pain Generalized pain documented in this encounter Care Teams Nurse Advocate Relationship Specialty Start Date End Date Lovely Vicente MD PCP - General 04/16/[address] [place] [address] documented as of this encounter
--- OUTSIDE RECORDS SUMMARY | 2022-02-16 08:17 | XMS_ITS | Encounter Summary ---
:1945 Author Organization [facility] [place] [address] Care Team Providers Name Role Phone Lovely Vicente MD Primary Care Provider Reason for Visit Auth/Cert Specialty Diagnoses / Procedures Referred By Contact Refer red To Contact Diagnoses Critical lower limb ischemia CELLULITIS RT FOOT Procedures EMERGENCY Referral ID Status Reason Start Date Expiration Date Visits Requ ested Visits Authorized [id number] 1 1 Encounter Details Date Type Department Care Team Description 08/09/2017 Surgery Main Operating Room Yonathan Smith AM PUTATION, Mary Hitchcock MD TRANSMETATARSAL ([facility] 12.71) [facility] [place] [address] [place] [address] [phone] Social History Tobacco Use Types Packs/Day Years [...] 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 Patient [...] Dorsalis Pedis (Ankle) Artery ?132 ? 0.94 ??[place]-Biphasic ? Posterior Tibial (Ankle) Artery ??154 ? 1.10 ??[place]-Biphasic ? Fourth Toe ? 67 ?0.48 ?? [...] the foot. Discharge Conditions/Prognosis: Good Discharge to: [facility] Rehab Discharge Medications: Your Medications [...] For any problems or questions please call [phone] ZELDA Smith, polishing machine tender Nurse Clinician For issues on weeknights after 5pm and weekends please call [phone] and ask for the Vascular Fellow configuration management administrator. General Instructions None Future Appointments and Orders Future Appointments Provider Department Dept Phone 08/26/2017 4:00 PM Aurelia Rivera PA [facility] [place] [phone] 09/07/2017 3:00 PM LAB, THREE L Lab 3L [facility] [phone] 09/07/2017 4:00 PM Luz Prescott MD Endocrinology [facility] [place] [phone] 09/09/2017 8:00 AM Barbra Soares APRN Pain Management [facility] [place] [phone] Please bring a list of your current [...] For any problems or questions please call [phone] ZELDA Smith, polishing machine tender Nurse Clinician For issues on weeknights after 5pm and weekends please call [phone] and ask for the Vascular Fellow configuration management administrator. documented in this encounter Medications at Time [...] of Care Management Discharge Note Patient Destination: [facility] ([facility]) [address] [address] Transportation: with (at bedside) Time of Discharge: by 12 noon Level of Care: swing Patient Aware: yes Family Notified: yes Md to call report to: Yissel Quintero SCRUB NURSE already called RN to call report to: [phone] Shirin Wolf Office of Care Management Pager [phone] Shirin Wolf RN - 08/16/2017 10:50 AM EST [facility] has offered pt swing bed. Pt and accept bed. will transport via car. SCRUB NURSE Yissel Quintero aware; d/c paperwork will be completed by 12 noon. [facility] requests pt arrival by 1400 today; SCRUB NURSE, RN, and family aware. SCRUB NURSE called [facility] and was told that they prefer pt to arrive with wound vac dressing applied but clamped. SCRUB NURSE applied new wound vac dressing. RN has [facility] number to call report. PASSR completed; SCRUB NURSE paged to request provider signature in highlighted space. Indigo from [facility] notified via email that home wound vac now cancelled; [facility] has picked up from room and order cancelled. Packet started and provided to community health coordinator. Medicare important message explained to patient, patient signed. Copy provided to patient and signature page to OCM for inclusion in pt EMR. L Radha Powers Yoselin - 08/16/2017 10:34 AM EST Office of Care Management/Can Cleaner Patient Name: Gregory Hoang : 1945 Patient has been offered a swing bed at [facility]. The patient will be transported by private transportation. No MD to MD report necessary Please call Nursing Report to [phone], ask for track laying equipment operator. Info to accompany patient: Narcotic Prescriptions Copies of Medication Administration Records and IV sheets for past 10 days. Plan: Can Cleaner will be available to the patient and Beet Flumer-RN and/or Project Coordinator Rn for further assistance. Patient will be discharged to: [address] [address] Radha Powers, Can Cleaner Mira Truong, VAMSI - 08/15/2017 10:05 PM EST [address] Flores to ask if he wanted to hold metoprolol dose. BP 95/58. OK to hold this dose Courtney Brito - 08/15/2017 3:26 PM EST Office of Care Management(OCM)/Can Cleaner(RS)/ D/C Planning re : Patient is medically ready for d/c today. RS has been in contact with [facility] to see if they could offer a bed. [facility] is still reviewing the case and need their MD to review chart prior to accepting or declining. OCM team needs to check in with [facility] tomorrow to check on status. 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 Vac in place. Rehab referrals ongoing. Can ambulate in hallway. Change VAC at bedside today. Naty Colindres RN - 08/14/2017 1:33 PM EST Patient Name: Gregory Hoang Patient Age: 72 y.o. Birthdate: 1945 Admit date: 08/06/2017 Attending Physician: Yonathan Smith MD We want him to go to a place for intensive therapy and not at a jail where he will be just sitting there and not getting any therapy. . Contacted by direct care RN, who said that patient and would like information about patient's referral to: [facility] PHONE: [phone] FAX: [phone] CM spoke with RS who said that [...] would be accepted to acute rehab at [facility] as Dr. Smith had recommended [...] rehab. Await recommendations from PT. Covering pager #[phone]. 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 Tab Cutting Machine Operator Kaitlin Saha, RN Pager #[phone] Payam Rosales - 08/13/2017 2:37 PM EST Director Of Revenue Cycle Management Encounter Note Patient Name: Gregory Hoang : [id number] MR#: [id number] Admit Date: 08/06/2017 1:41 PM Hospital Day 7 days Narrative: Visited to introduce and assess acceptance of Director Of Revenue Cycle Management services. Pt was awake, alert, oriented and in chair and family was there. Assessment:Patient coping positively with stresses of illness/hospitalization at this time. Pt says that he is hoping to get better and his family was there. Pt says that he has family care and supportand taking one day at time. Intervention and Outcome: Provided emotional support and encouraging presence. 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 A letter describing our affiliations was reviewed with them and theywere educated about their right to choose where referrals are placed. Patient requests referral to [facility]. PHONE: [phone] FAX: [phone]. And Home NPWT (Negative Pressure Wound Therapy) aka wound vac device made available to pt. Serial # confirmed. Reviewed [facility] Proof of Delivery/Assignment of Benefits Statement(POD/AOB) Form w patient or authorized agent signing on behalf of patient. Copy of POD/AOB provided to pt and other copy faxed to [employer] @ fax# [phone] Expected date of discharge: 08/12/2017. 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 Address: [address] [place] [address] [place] [address] (home) Mobile: Telephone Information: Referring Provider: No [...] SETUP performed by Manny Mcknight MD at [facility] MAIN OR ??? PRO CABG, ARTERIAL, SINGLE N/A 07/07/2017 @CABG, USING ARTERIAL GRAFT;SINGLE ARTERIAL GRAFT (WRVU 33.75) performed by Yuan Retana MD at [facility] MAIN OR ??? PRO CABG, ARTERY-VEIN, TWO N/A 07/07/2017 @CABG, TWO VENOUS GRAFTS & ARTERIAL GRAFT (WRVU 7.93) performed by Yuan Retana MD at [facility] MAIN OR ??? PRO COLONOSCOPY, REMV LESN, SNARE 01/16/2014 COLONOSCOPY, POLYPECTOMY, REMOVAL LESION BY SNARE performed by Nohemi Jaimes MD at [facility] ENDOSCOPY ??? PRO ENDOSCOPY W/VIDEO-ASST VEIN HARVEST, CABG Right 07/07/2017 ENDOSCOPIC HARVEST VEIN(S) FOR CABG (WRVU 0.31) performed by Yuan Retana MD at [facility] MAIN OR ??? 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 Heparin gtt continues to run. [...] of : 1945 AGE 72 y.o. Address: [address] [place] [address] [place] [address] (home) Mobile: Telephone Information: Referring Provider: No [...] SETUP performed by Manny Mcknight MD at [facility] MAIN OR ??? PRO CABG, ARTERIAL, SINGLE N/A 07/07/2017 @CABG, USING ARTERIAL GRAFT;SINGLE ARTERIAL GRAFT (WRVU 33.75) performed by Yuan Retana MD at [facility] MAIN OR ??? PRO CABG, ARTERY-VEIN, TWO N/A 07/07/2017 @CABG, TWO VENOUS GRAFTS & ARTERIAL GRAFT (WRVU 7.93) performed by Yuan Retana MD at [facility] OR ??? PRO COLONOSCOPY, REMV LESN, SNARE 01/16/2014 COLONOSCOPY, POLYPECTOMY, REMOVAL LESION BY SNARE performed by Nohemi Jaimes MD at [facility] ENDOSCOPY ??? PRO ENDOSCOPY W/VIDEO-ASST VEIN HARVEST, CABG Right 07/07/2017 ENDOSCOPIC HARVEST VEIN(S) FOR CABG (WRVU 0.31) performed by Yuan Retana MD at [facility] MAIN OR ??? 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 Unsuccessful draw attempt, another education managers will come [facility] to collect blood for PTT test. 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 Vascular resident configuration management administrator and will forward result to the team prior to rounds. 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 Patient [...] SETUP performed by Manny Mcknight MD at [facility] MAIN OR ??? PRO CABG, ARTERIAL, SINGLE N/A 07/07/2017 @CABG, USING ARTERIAL GRAFT;SINGLE ARTERIAL GRAFT (WRVU 33.75) performed by Yuan Retana MD at [facility] MAIN OR ??? PRO CABG, ARTERY-VEIN, TWO N/A 07/07/2017 @CABG, TWO VENOUS GRAFTS & ARTERIAL GRAFT (WRVU 7.93) performed by Yuan Retana MD at [facility] MAIN OR ??? PRO COLONOSCOPY, REMV LESN, SNARE 01/16/2014 COLONOSCOPY, POLYPECTOMY, REMOVAL LESION BY SNARE performed by Nohemi Jaimes MD at [facility] ENDOSCOPY ??? PRO ENDOSCOPY W/VIDEO-ASST VEIN HARVEST, CABG Right 07/07/2017 ENDOSCOPIC HARVEST VEIN(S) FOR CABG (WRVU 0.31) performed by Yuan Retana MD at [facility] MAIN OR ??? PRO THYROIDECTOMY 03/28/2013 THYROIDECTOMY, TOTAL OR COMPLETE performed by Manny Mcknight MD at [facility] MA[facility] OR Functional Status/Social Hx: Quit smoking [...] left blue toes with CTA showing R ADJUNCT HISTORY INSTRUCTOR pseudoaneurysm (now thrombosed) and occluded ATs bilaterally. [...] 2.5x80 5. Completion RLE angiogram 6. L ADJUNCT HISTORY INSTRUCTOR angiogram 7. 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 - L ADJUNCT HISTORY INSTRUCTOR angriogram demonstrated: High femoral bifurcation over the proximal half of the femoral head. L ADJUNCT HISTORY INSTRUCTOR access in the distal L ADJUNCT HISTORY INSTRUCTOR. - Closure device: Mynx Technical Procedure: The [...] for a 45cm 5F Destination. V18 and [place] and QuickCross catheters were used to select [...] 5F. A stationed picture of the L ADJUNCT HISTORY INSTRUCTOR was performed as the patient was noted to have a very high bifurcation. Access appeared in the distal R ADJUNCT HISTORY INSTRUCTOR. Closure and sheath removal was performed with [...] PM EST 1440 report called to 5 [place] nurse Tessa RN documented in this encounter [...] with pt and pt's spouse. Discharge to [facility]. Goal: Individualization & Mutuality Outcome: [...] sit/sit to supine -- Bed Mobility Goal, [place] Level independent -- Bed Mobility Goal, Date [...] days -- Transfer Training Goal, Activity Type uuo-na-bahmm/tntdk-va-dea -- Transfer Train Goal, [place] Level conditional independence -- Transfer Train Goal, [...] call cabello within reach, Hourly rounding by RN/CLOTH WINDER. Bed alarm / Chair alarm. Patient-specific fall [...] Smith MD - 08/15/2017 6:28 PM EST [facility] Operative Note Patient Name: Gregory Hoang : [id number] MR#: [id number] Case Date: 08/09/2017 Surgeon: Surgeon(s) and Role: [...] 2.5x80 5. Completion RLE angiogram 6. L ADJUNCT HISTORY INSTRUCTOR angiogram 7. Mynx closure Precautions/Restrictions: fall, sternal [...] feet/ bed -> bathroom). Anticipated Discharge Disposition: [facility] facility, other (see comments) (or swing bed) Pager: [phone] BASSAM ELIAS, PT 08/14/2017 Inpatient Physical Therapy [...] to Achieve by discharge Gait Training Goal, [place] Level conditional independence;set up required Gait Training [...] these facilities over the weekend except for [facility]. CM spoke with [facility] CM Drea Sandhu, VAMSI who said that they do not anticipate any beds over the weekend. Reviewed with patient/ that they need to be aware that patient will need to take the first bed offered at the facilities that they make referrals to. Their choices are: 1- [facility] PHONE: [phone] FAX: [phone] 2- [facility] ([facility]) [address] [place] [address] 3- [facility])([facility]) [address] [place] [address] I have discussed Medicare/Private Insurance [...] RS/CM on Wednesday to follow-up. Covering pager #[phone] for today. Plan of Care - Henrique [...] with additional findings of pseudoaneurysm on R ADJUNCT HISTORY INSTRUCTOR and bilateral anterior tibial artery occlusions. Was [...] an outpatient once discharged. Have patient call [phone] to set up an appointment. Follow-up: Dermatology will sign-off for now. Please do not hesitate to contact us if you have any questions orconcerns. Impression and Recommendations discussed with primary team on 08/13/2017. Karo Henderson MD Resident in Dermatology Section of Dermatology, Department of Surgery [facility] Pager [phone] Patient seen and evaluated with staff Appeals Specialist: Halima Cordero MD Section of Dermatology [facility] Level of Resident Supervision: Direct Supervision [...] Outcome: Ongoing (Interventions Implemented as Appropriate) 08/12/17 0926 Coping/Psychosocial Plan Of Care Reviewed With patient;spouse [...] 2.5x80 5. Completion RLE angiogram 6. L ADJUNCT HISTORY INSTRUCTOR angiogram 7. Mynx closure Active Non-Hospital Problems [...] home with home health ([facility] PT&OT) Pager: [phone] YASIR TELLO OT 08/12/2017 Occupational Therapy Rehabilitation [...] 2.5x80 5. Completion RLE angiogram 6. L ADJUNCT HISTORY INSTRUCTOR angiogram 7. Mynx closure Past Medical History: [...] with 24/7 assistance and maximal services) Pager: [phone] NICHOLAS MORA, PT 08/12/2017 Physical Therapy Rehabilitation [...] sit/sit to supine -- Bed Mobility Goal, [place] Level independent -- Bed Mobility Goal, Outcome Achieved -- goal ongoing Goal: Gait Training Goal Stand Alone Therapy Goal Outcome: Ongoing (Interventions Implemented as Appropriate) 08/11/17 1310 08/12/17 1510 Gait Training Goal Gait Training Goal, Date Established 08/11/17 -- Gait Training Goal, Time to Achieve 5 - 7 days -- Gait Training Goal, [place] Level conditional independence -- Gait Training Goal, [...] days -- Transfer Training Goal, Activity Type fny-mc-yrqfx/gzvig-di-dpn -- Transfer Train Goal, [place] Level conditional independence -- Transfer Training Goal, [...] Smith MD - 08/11/2017 2:52 PM EST [facility] Operative Note Patient Name: Gregory Hoang : [id number] MR#: [id number] Case Date: 08/11/2017 Surgeon: Surgeon(s) and Role: [...] 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 Completion RLE angiogram 6. L ADJUNCT HISTORY INSTRUCTOR angiogram 7. Mynx closure He is very [...] Anticipated Discharge Disposition: inpatient rehabilitation facility Pager: [phone] LAWRENCE GONZALEZ, PT 08/11/2017 Physical Therapy Rehabilitation [...] to sit/sit to supine Bed Mobility Goal, [place] Level independent Goal: Gait Training Goal Stand Alone Therapy Goal Outcome: Ongoing (Interventions Implemented as Appropriate) 08/11/17 1310 Gait Training Goal Gait Training Goal, Date Established 08/11/17 Gait Training Goal, Time to Achieve 5 - 7 days Gait Training Goal, [place] Level conditional independence Gait Training Goal, Assist [...] 7 days Transfer Training Goal, Activity Type lnt-po-gjzlv/izugz-sy-idz Transfer Train Goal, [place] Level conditional independence Plan of David DelloAnnetta [...] call cabello within reach, Hourly rounding by RN/CLOTH WINDER. Bed alarm / Chair alarm. ? Patient-specific [...] 04/05/2013 Hospitalizations Within the Past 30 Days: [facility] 07/20/2017 Anticipated Length Of Stay (If known): Expected Length of Hospitalization: 5-7 days2-3 days Current Decision-Making Capacity: Alert and oriented x 4 Advance Care Planning: on file Kisha Hoang [facility] [phone] Current Coping/Education/Information Needs: pt and spouse state [...] Health/Prescription Coverage: Primary Insurance: MEDICARE Secondary Insurance: [employer] [place] Prescription Coverage: See above Preferred Pharmacy: [facility] Other: N/A Primary Care Provider: Lovely Vicente MD [phone] Patient/Caregiver Goals of Treatment: Patient plans to return home when medically ready Potential Needs for Transition of Care: Rehab/SNF: N/A Home Health: [facility]. DME: pt has a cane and walker [...] of care planning. Kaitlin Saha RN Pager: [phone] Plan of Care - Melba Jaramillo RN [...] call cabello within reach, Hourly rounding by RN/CLOTH WINDER. Bed alarm / Chair alarm. Patient-specific fall prevention interventions for sensory deficits provided, if applicable: [X] Yes CPG GOAL OUTCOME EVALUATION: Goal: Fall Prevention-Safe Patient Handling Outcome: Ongoing (Interventions Implemented as Appropriate) 08/06/17 1700 08/06/17199908/07/17 0884 Positioning Body Position -- up in chair [...] at bedside and MD TEAM Carrying pager [phone] contacted (via Radio page) and notified of [...] Office Visit Cardiology Liz Poole PA [facility] er Cardiology Dept [place], [place] [address] (Wo rk) 03/26/2022 Office Visit Cardiology Vitaliy Nobles MD [facility] ER CARDIOLOGY [place], [place] [address] (Wo rk) documented as of [...] section. TYPE AND SCREEN Routine 08/09/2017 1:10 ([facility]P/SHANDA) AM EST BASIC METABOLIC PANEL Routine 08/09/2017 [...] Glucose 160 65 - 199 [facility] mg/dL [facility] Comment: Supplemental ranges: <140 mg/dL before meals <180 mg/dL all other times of the day Specimen Anatomical Collection Method Collection Time Receive d Time (Source) Location / / Volume Laterality Blood specimen 08/16/2017 7:28 AM 018 7:28 (specimen) EST AM EST Yonathan Smith MD POINT OF CARE TEST ORDERABLE S Performing Organization Address City/State/ZIP [place] [address] (ABNORMAL) Differential, Automated (08/16/2017 5:08 AM EST) Patholo gist Method Time Signature Neutrophils % 73.9 % [facility] Neutr Abs (ANC) 5.37 1.70 - [facility] 6.10 [facility] x10(3)/[facility] LABORATORY Lymphocytes % 10.1 % [facility] Lymphocytes Abs 0.7 (L) 0.9 - 3.2 [facility] x10(3)/[facility] LABORATORY Monocytes % 10.1 % [facility] Monocyte Abs 0.7 0.3 - 0.9 [facility] x10(3)/[facility] LABORATORY Eosinophils % 5.1 % [facility] Eosinophils Abs 0.4 0.0 - 0.4 [facility] x10(3)/[facility] LABORATORY Basophils % 0.4 % [facility] Basophils Abs 0.0 0.0 - 0.1 [facility] x10(3)/[facility] LABORATORY Immature Gran % 0.40 % [facility] Comment: Immature granulocytes(IG's)percentage an d absolute count will include metamyelocytes, myelocytes, and promyelo cytes. Blood smears from CBCs yielding IG's will be scanned manually for concor dance. If this scan disagrees with the automated IG or if promyelocytes are not ed, a manual differential will be performed. Melisa Gran Abs 0.03 0.00 - 0.04 x10(3)/[facility] Specimen Anatomical Collection Method Collection Time Receive d Time (Source) Location / / Volume Laterality Blood specimen 08/16/2017 5:08 AM 018 5:20 (specimen) EST AM EST Resulting Agency Comment Spec In Lab Yonathan Smith MD HEMATOLOGY ORDERABLES Performing Organization Address City/State/[place] [address] (ABNORMAL) Hemogram (08/16/2017 5:08 AM EST) Analysis Performed At Patho logist Time Signature WBC 7.3 4.0 - 9.5 [facility] x10(3)/[facility] LABORATORY RBC 3.36 (L) 4.58 - [facility] 5.54 [facility] x10(6)/[facility] LABORATORY Hemoglobin 9.7 (L) 13.7 - [facility] 16.5 gm/dL [facility] LABORATORY Hematocrit 30.3 (L) 40.5 - [facility] 48.5 % [facility] LABORATORY MCV 90.2 82.9 - BARBARA OLIVASCK 93.1 [facility] LABORATORY MCH 28.9 27.5 - BARBARA DAVIS 32.1 pg [facility] LABORATORY MCHC 32.0 32.0 - BARBARA DAVIS 35.7 gm/dL [facility] LABORATORY Platelets 282 145 - 357 [facility] x10(3)/[facility] LABORATORY RDWSD 53.9 (H) 36.0 - BARBARA DAVIS 45.0 [facility] LABORATORY RDWCV 16.5 (H) 11.4 - BARBARA RYAN 13.8 % [facility] LABORATORY MPV 9.0 7.6 - 12.9 [facility] LABORATORY nRBC % Auto 0.0 % [facility] LABORATORY nRBC Abs Auto 0.000 0.000 - BARBARA ZHAORYAN 0.000 [facility] x10(3)/[facility] LABORATORY Specimen Anatomical Collection Method Collection Time Receive d Time (Source) Location / / Volume Laterality Blood specimen 08/16/2017 5:08 AM 018 5:20 (specimen) EST AM EST Resulting Agency Comment Spec In Lab Yonathan Smith MD HEMATOLOGY ORDERABLES Performing Organization Address City/State/[place] [address] (ABNORMAL) Basic Metabolic Panel (non-fasting) (08/16/2017 5:08 AM EST) P athologist Signature Glucose Lvl 141 65 - 199 [facility] mg/dL [facility] LABORATORY Comment: Diabetes: >=200 mg/dL plus symp toms BUN 29 (H) 10 - 20 mg/dL [facility] LABORATORY Creatinine 1.25 0.80 - 1.50 mg/dL [facility] estions. Chloride 99 98 - 107 mmol/L [facility] LABORATORY CO2 28 22 - 31 mmol/L [facility] LABORATORY Anion Gap 13 5 - 15 mmol/L [facility] LABORATORY Calcium 8.7 8.5 - 10.5 mg/dL [facility] LABORATORY Estimated GFR 57 (L) >=60 [facility] LABORATORY Comment: The reported eGFR should be multiplied b y 1.2 for patients. The MDRD is not an appropriate measure o f renal function for patients with body mass extremes or in patients with acute kidney failure. [email or web address] [email or web address] Specimen Anatomical Collection Method Collection Time Receive d Time (Source) Location / / Volume Laterality Blood specimen 08/16/2017 5:08 AM 018 5:20 (specimen) EST AM EST Resulting Agency Comment Spec In Lab Yonathan Smith MD CHEMISTRY ORDERABLES Performing Organization Address City/State/[place] [address] (ABNORMAL) Prothrombin Time (08/16/2017 5:08 AM EST) P athologist Signature PT 25.2 (H) 11.8 - 14.0 [facility] LABORATORY INR 2.3 (H) 0.9 - 1.1 [facility] LABORATORY Comment: An INR [...] Organization Address City/State/ZIP Code Phon e Number [address] POCT Glucose (08/16/2017 4:09 AM EST) athologist Signature POC Glucose 147 65 - 199 BARBARA RYAN mg/dL [facility] LABORATORY Comment: Supplemental ranges: <140 mg/dL before meals <180 mg/dL all other times of the day Specimen Anatomical Collection Method Collection Time Receive d Time (Source) Location / / Volume Laterality Blood specimen 08/16/2017 4:09 AM 018 4:09 (specimen) EST AM EST Yonathan Smith MD POINT OF CARE TEST ORDERABLE S Performing Organization Address City/Va Hospital/ZIP Code Phon e Number [address] POCT Glucose (08/15/2017 11:56 PM EST) athologist Signature POC Glucose 176 65 - 199 BARBARA ZHAORYAN mg/dL [facility] LABORATORY Comment: Supplemental ranges: <140 mg/dL before meals <180 mg/dL all other times of the day Specimen Anatomical Collection Method Collection Time Receive d Time (Source) Location / / Volume Laterality Blood specimen 08/15/2017 11:56 8 (specimen) PM EST 11:56 PM EST Yonathan Smith MD POINT OF CARE TEST ORDERABLE S Performing Organization Address City/Va Hospital/[place] [address] POCT Glucose (08/15/2017 8:05 PM EST) athologist Signature POC Glucose 136 65 - 199 BARBARA RYAN mg/dL [facility] LABORATORY Comment: Supplemental ranges: <140 mg/dL before meals <180 mg/dL all other times of the day Specimen Anatomical Collection Method Collection Time Receive d Time (Source) Location / / Volume Laterality Blood specimen 08/15/2017 8:05 PM 018 8:05 (specimen) EST PM EST Yonathan Smith MD POINT OF CARE TEST ORDERABLE S Performing Organization Address City/State/[place] [address] (ABNORMAL) POCT Glucose (08/15/2017 4:50 PM EST) athologist Signature POC Glucose 232 (H) 65 - 199 [facility] RYAN mg/dL [facility] LABORATORY Comment: Supplemental ranges: <140 mg/dL before meals <180 mg/dL all other times of the day Specimen Anatomical Collection Method Collection Time Receive d Time (Source) Location / / Volume Laterality Blood specimen 08/15/2017 4:50 PM 018 4:50 (specimen) EST PM EST Yonathan Smith MD POINT OF CARE TEST ORDERABLE S Performing Organization Address City/State/ZIP Code Phon e Number [address] POCT Glucose (08/15/2017 12:04 PM EST) athologist Signature POC Glucose 135 65 - 199 [facility] RYAN mg/dL [facility] LABORATORY Comment: Supplemental ranges: <140 mg/dL before meals <180 mg/dL all other times of the day Specimen Anatomical Collection Method Collection Time Receive d Time (Source) Location / / Volume Laterality Blood specimen 08/15/2017 12:04 8 (specimen) PM EST 12:04 PM EST Yonathan Smith MD POINT OF CARE TEST ORDERABLE S Performing Organization Address City/State/ZIP Code Phon e Number [address] POCT Glucose (08/15/2017 7:36 AM EST) athologist Signature POC Glucose 124 65 - 199 [facility] RYAN mg/dL [facility] LABORATORY Comment: Supplemental ranges: <140 mg/dL before meals <180 mg/dL all other times of the day Specimen Anatomical Collection Method Collection Time Receive d Time (Source) Location / / Volume Laterality Blood specimen 08/15/2017 7:36 AM 018 7:36 (specimen) EST AM EST Yonathan Smith MD POINT OF CARE TEST ORDERABLE S Performing Organization Address City/State/[place] [address] (ABNORMAL) Differential, Automated (08/15/2017 6:22 AM EST) Patholo gist Method Time Signature Neutrophils % 76.1 % [facility] LABORATORY Neutr Abs (ANC) 6.62 (H) 1.70 - [facility] 6.10 [facility] x10(3)/[facility] LABORATORY Lymphocytes % 9.3 % [facility] LABORATORY Lymphocytes Abs 0.8 (L) 0.9 - 3.2 [facility] x10(3)/[facility] LABORATORY Monocytes % 9.4 % [facility] LABORATORY Monocyte Abs 0.8 0.3 - 0.9 [facility] x10(3)/[facility] LABORATORY Eosinophils % 4.0 % [facility] LABORATORY Eosinophils Abs 0.4 0.0 - 0.4 [facility] x10(3)/[facility] LABORATORY Basophils % 0.6 % [facility] LABORATORY Basophils Abs 0.0 0.0 - 0.1 [facility] x10(3)/[facility] LABORATORY Immature Gran % 0.60 % [facility] LABORATORY Comment: Immature [...] Organization Address City/State/[place] [address] (ABNORMAL) Hemogram (08/15/2017 6:22 AM EST) Analysis Performed At Path logist Time Signature WBC 8.7 4.0 - 9.5 [facility] x10(3)/[facility] LABORATORY RBC 3.21 (L) 4.58 - BARBARA ZHAORYAN 5.54 [facility] x10(6)/[facility] LABORATORY Hemoglobin 9.1 (L) 13.7 - [facility] 16.[facility] gm/dL [facility] LABORATORY Hematocrit 29.0 (L) 40.5 - [facility] 48.5 % [facility] LABORATORY MCV 90.3 82.9 - [facility] 93.1 [facility] LABORATORY MCH 28.3 27.5 - [facility] 32.1 pg [facility] LABORATORY MCHC 31.4 (L) 32.0 - [facility] 35.[facility] gm/dL [facility] LABORATORY Platelets 254 145 - 357 [facility] x10(3)/[facility] LABORATORY RDWSD 53.9 (H) 36.0 - [facility] 45.0 [facility] LABORATORY RDWCV 16.3 (H) 11.4 - [facility] 13.8 % [facility] LABORATORY MPV 8.8 7.6 - 12.9 [facility] LABORATORY nRBC % Auto 0.0 % [facility] LABORATORY nRBC Abs Auto 0.000 0.000 - [facility] 0.000 [facility] x10(3)/[facility] LABORATORY Specimen Anatomical Collection Method Collection Time Receive d Time (Source) Location / / Volume Laterality Blood specimen 08/15/2017 6:22 AM 018 6:33 (specimen) EST AM EST Resulting Agency Comment Spec In Lab Yonathan Smith MD HEMATOLOGY ORDERABLES Performing Organization Address City/State/Z[place] [address] (ABNORMAL) Basic Metabolic Panel (non-fasting) (08/15/2017 6:22 AM EST) P athologist Signature Glucose Lvl 118 65 - 199 [facility] mg/dL [facility] LABORATORY Comment: Diabetes: >=200 mg/dL plus symp toms BUN 27 (H) 10 - 20 mg/dL [facility] LABORATORY Creatinine 1.12 0.80 - 1.50 mg/dL [facility] LABORATORY Sodium 138 135 - [...] estions. Chloride 98 98 - 107 mmol/L [facility] LABORATORY CO2 29 22 - 31 mmol/L [facility] LABORATORY Anion Gap 11 5 - 15 mmol/L [facility] LABORATORY Calcium 8.8 8.5 - 10.5 mg/dL [facility] LABORATORY Estimated GFR >60 >=60 [facility] LABORATORY Comment: The reported eGFR should be multiplied b y 1.2 for patients. The MDRD is not an appropriate measure o f renal function for patients with body mass extremes or in patients with acute kidney failure. [email or web address] [email or web address] Specimen Anatomical Collection Method Collection Time Receive d Time (Source) Location / / Volume Laterality Blood specimen 08/15/2017 6:22 AM 018 6:33 (specimen) EST AM EST Resulting Agency Comment Spec In Lab Yonathan Smith MD CHEMISTRY ORDERABLES Performing Organization Address City/State/[place] [address] (ABNORMAL) Prothrombin Time (08/15/2017 6:22 AM EST) athologist Signature PT 21.9 (H) 11.8 - 14.0 [facility] LABORATORY INR 1.9 (H) 0.9 - 1.1 [facility] LABORATORY Comment: An INR [...] Organization Address City/State/ZIP Code Phon e Number [address] POCT Glucose (08/15/2017 4:33 AM EST) athologist Signature POC Glucose 164 65 - 199 BARBARA RYAN mg/dL [facility] LABORATORY Comment: Supplemental ranges: <140 mg/dL before meals <180 mg/dL all other times of the day Specimen Anatomical Collection Method Collection Time Receive d Time (Source) Location / / Volume Laterality Blood specimen 08/15/2017 4:33 AM 018 4:33 (specimen) EST AM EST Yonathan Smith MD POINT OF CARE TEST ORDERABLE S Performing Organization Address City/Va Hospital/ZIP Code Phon e Number [address] POCT Glucose (08/15/2017 12:12 AM EST) athologist Signature POC Glucose 89 65 - 199 BARBARA RYAN mg/dL [facility] LABORATORY Comment: Supplemental ranges: <140 mg/dL before meals <180 mg/dL all other times of the day Specimen Anatomical Collection Method Collection Time Receive d Time (Source) Location / / Volume Laterality Blood specimen 08/15/2017 12:12 8 (specimen) AM EST 12:12 AM EST Yonathan Smith MD POINT OF CARE TEST ORDERABLE S Performing Organization Address City/[facility] Hospital/ZIP Code Phon e Number [address] (ABNORMAL) POCT Glucose (08/14/2017 8:07 PM EST) athologist Signature POC Glucose 204 (H) 65 - 199 BARBARA RYAN mg/dL [facility] LABORATORY Comment: Supplemental ranges: <140 mg/dL before meals <180 mg/dL all other times of the day Specimen Anatomical Collection Method Collection Time Receive d Time (Source) Location / / Volume Laterality Blood specimen 08/14/2017 8:07 PM 018 8:07 (specimen) EST PM EST Yonathan Smith MD POINT OF CARE TEST ORDERABLE S Performing Organization Address City/State/ZIP Code Phon e Number [address] POCT Glucose (08/14/2017 5:11 PM EST) athologist Signature POC Glucose 174 65 - 199 [place] [place] mg/dL [facility] LABORATORY Comment: Supplemental ranges: <140 mg/dL before meals <180 mg/dL all other times of the day Specimen Anatomical Collection Method Collection Time Receive d Time (Source) Location / / Volume Laterality Blood specimen 08/14/2017 5:11 PM 018 5:11 (specimen) EST PM EST Yonathan Smith MD POINT OF CARE TEST ORDERABLE S Performing Organization Address City/State/ZIP Code Phon e Number [address] POCT Glucose (08/14/2017 12:10 PM EST) athologist Signature POC Glucose 141 65 - 199 BARBARA RYAN mg/dL [facility] LABORATORY Comment: Supplemental ranges: <140 mg/dL before meals <180 mg/dL all other times of the day Specimen Anatomical Collection Method Collection Time Receive d Time (Source) Location / / Volume Laterality Blood specimen 08/14/2017 12:10 8 (specimen) PM EST 12:10 PM EST Yonathan Smith MD POINT OF CARE TEST ORDERABLE S Performing Organization Address City/State/ZIP Code Phon e Number [address] POCT Glucose (08/14/2017 8:07 AM EST) athologist Signature POC Glucose 158 65 - 199 BARBARA ZHAORYAN mg/dL [facility] LABORATORY Comment: Supplemental ranges: <140 mg/dL before meals <180 mg/dL all other times of the day Specimen Anatomical Collection Method Collection Time Receive d Time (Source) Location / / Volume Laterality Blood specimen 08/14/2017 8:07 AM 018 8:07 (specimen) EST AM EST Yonathan Smith MD POINT OF CARE TEST ORDERABLE S Performing Organization Address City/State/Z[place] [address] (ABNORMAL) Differential, Automated (08/14/2017 4:52 AM EST) [facility] Method Time Signature Neutrophils % 78.6 % [facility] LABORATORY Neutr Abs (ANC) 7.70 (H) 1.70 - [facility] 6.10 [facility] x10(3)/[facility] LABORATORY Lymphocytes % 7.8 % [facility] LABORATORY Lymphocytes Abs 0.8 (L) 0.9 - 3.2 [facility] x10(3)/[facility] LABORATORY Monocytes % 8.8 % [facility] LABORATORY Monocyte Abs 0.9 0.3 - 0.9 [facility] x10(3)/[facility] LABORATORY Eosinophils % 4.0 % [facility] LABORATORY Eosinophils Abs 0.4 0.0 - 0.4 [facility] x10(3)/[facility] LABORATORY Basophils % 0.5 % [facility] LABORATORY Basophils Abs 0.0 0.0 - 0.1 [facility] x10(3)/[facility] LABORATORY Immature Gran % 0.30 % [facility] LABORATORY Comment: Immature granulocytes(IG's)percentage an d absolute count will include metamyelocytes, myelocytes, and promyelo cytes. Blood smears from CBCs yielding IG's will be scanned manually for concor dance. If this scan disagrees with the automated IG or if promyelocytes are not ed, a manual differential will be performed. Melisa Gran Abs 0.03 0.00 - 0.04 x10(3)/[facility] LABORATORY Specimen Anatomical Collection Method Collection Time Receive d Time (Source) Location / / Volume Laterality Blood specimen 08/14/2017 4:52 AM 018 5:08 (specimen) EST AM EST Resulting Agency Comment Spec In Lab Yonathan Smith MD HEMATOLOGY ORDERABLES Performing Organization Address City/State/ZIP Code Phon e Number [address] (ABNORMAL) Hemogram (08/14/2017 4:52 AM EST) Analysis Performed At Patho logist Time Signature WBC 9.8 (H) 4.0 - 9.5 [facility] x[facility](3[facility] LABORATORY RBC 3.32 (L) 4.58 - BARBARA RYAN 5.54 [facility] x10(6)/[facility] LABORATORY Hemoglobin 9.5 (L) 13.7 - [facility] 16.5 gm/dL [facility] LABORATORY Hematocrit 30.3 (L) 40.5 - [facility] 48.5 % [facility] LABORATORY MCV 91.3 82.9 - [facility] 93.1 [facility] LABORATORY MCH 28.6 27.5 - BARBARA RYAN 32.1 pg [facility] LABORATORY MCHC 31.4 (L) 32.0 - BARBARA RYAN 35.7 gm/dL [facility] LABORATORY Platelets 263 145 - 357 [facility] x10(3)/[facility] LABORATORY RDWSD 54.8 (H) 36.0 - BARBARA RYAN 45.0 [facility] LABORATORY RDWCV 16.5 (H) 11.4 - [facility] RYAN 13.8 % [facility] LABORATORY MPV 9.1 7.6 - 12.9 [facility] LABORATORY nRBC % Auto 0.0 % [facility] LABORATORY nRBC Abs Auto 0.000 0.000 - BARBARA RYAN 0.000 [facility] x10(3)/[facility] LABORATORY Specimen Anatomical Collection Method Collection Time Receive d Time (Source) Location / / Volume Laterality Blood specimen 08/14/2017 4:52 AM 018 5:08 (specimen) EST AM EST Resulting Agency Comment Spec In Lab Yonathan Smith MD HEMATOLOGY ORDERABLES Performing Organization Address City/State/ZIP Code Phon e Number [address] (ABNORMAL) Prothrombin Time (08/14/2017 4:52 AM EST) athologist Signature PT 18.8 (H) 11.8 - 14.0 [facility] LABORATORY INR 1.6 (H) 0.9 - 1.1 [facility] LABORATORY Comment: An INR [...] Organization Address City/State/Z[place] [address] (ABNORMAL) Basic Metabolic Panel (non-fasting) (08/14/2017 4:52 AM EST) athologist Signature Glucose Lvl 135 65 - 199 [facility] mg/dL [facility] LABORATORY Comment: Diabetes: >=200 mg/dL plus symp toms BUN 25 (H) 10 - 20 mg/dL [facility] LABORATORY Creatinine 1.36 0.80 - 1.50 mg/dL [facility] LABORATORY Sodium 141 135 - 145 mmol/L [facility] [...] mmol/L [facility] LABORATORY Anion Gap 13 5 - 15 mmol/L [facility] LABORATORY Calcium 8.5 8.5 - 10.5 mg/dL [facility] LABORATORY Estimated GFR 52 (L) >=60 [facility] LABORATORY Comment: The reported eGFR should be multiplied b y 1.2 for patients. The MDRD is not an appropriate measure o f renal function for patients with body mass extremes or in patients with acute kidney failure. [email or web address] [email or web address] Specimen Anatomical Collection Method Collection Time Receive d Time (Source) Location / / Volume Laterality Blood specimen 08/14/2017 4:52 AM 018 5:08 (specimen) EST AM EST Resulting Agency Comment Spec In Lab Yonathan Smith MD CHEMISTRY ORDERABLES Performing Organization Address City/Va Hospital/ZIP Code Phon e Number [address] POCT Glucose (08/14/2017 3:56 AM EST) athologist Signature POC Glucose 135 65 - 199 [facility] mg/dL [facility] LABORATORY Comment: Supplemental ranges: <140 mg/dL before meals <180 mg/dL all other times of the day Specimen Anatomical Collection Method Collection Time Receive d Time (Source) Location / / Volume Laterality Blood specimen 08/14/2017 3:56 AM 018 3:56 (specimen) EST AM EST Yonathan Smith MD POINT OF CARE TEST ORDERABLE S Performing Organization Address City/State/ZIP Code Phon e Number [address] POCT Glucose (08/13/2017 11:13 PM EST) athologist Signature POC Glucose 118 65 - 199 [facility] mg/dL [facility] LABORATORY Comment: Supplemental ranges: <140 mg/dL before meals <180 mg/dL all other times of the day Specimen Anatomical Collection Method Collection Time Receive d Time (Source) Location / / Volume Laterality Blood specimen 08/13/2017 11:13 01/19/201 8 (specimen) PM EST 11:13 PM EST Yonathan Smith MD POINT OF CARE TEST ORDERABLE S Performing Organization Address City/State/ZIP Code Phon e Number [address] (ABNORMAL) POCT Glucose (08/13/2017 8:08 PM EST) athologist Signature POC Glucose 204 (H) 65 - 199 BARBARA ZHAORYAN mg/dL [facility] LABORATORY Comment: Supplemental ranges: <140 mg/dL before meals <180 mg/dL all other times of the day Specimen Anatomical Collection Method Collection Time Receive d Time (Source) Location / / Volume Laterality Blood specimen 08/13/2017 8:08 PM 018 8:08 (specimen) EST PM EST Yonathan Smith MD POINT OF CARE TEST ORDERABLE S Performing Organization Address City/Va Hospital/ZIP Code Phon e Number [address] POCT Glucose (08/13/2017 4:02 PM EST) athologist Signature POC Glucose 145 65 - 199 BARBARA RYAN mg/dL [facility] LABORATORY Comment: Supplemental ranges: <140 mg/dL before meals <180 mg/dL all other times of the day Specimen Anatomical Collection Method Collection Time Receive d Time (Source) Location / / Volume Laterality Blood specimen 08/13/2017 4:02 PM 018 4:02 (specimen) EST PM EST Yonathan Smith MD POINT OF CARE TEST ORDERABLE S Performing Organization Address City/[facility] Hospital/Z[place] [address] POCT Glucose (08/13/2017 11:31 AM EST) athologist Signature POC Glucose 179 65 - 199 BARBARA RYAN mg/dL [facility] LABORATORY Comment: Supplemental ranges: <140 mg/dL before meals <180 mg/dL all other times of the day Specimen Anatomical Collection Method Collection Time Receive d Time (Source) Location / / Volume Laterality Blood specimen 08/13/2017 11:31 8 (specimen) AM EST 11:31 AM EST Yonathan Smith MD POINT OF CARE TEST ORDERABLE S Performing Organization Address City/[facility] Hospital/ZIP Code Phon e Number [address] (ABNORMAL) POCT Glucose (08/13/2017 10:16 AM EST) P athologist Signature POC Glucose 211 (H) 65 - 199 BARBARA DAVIS mg/dL [facility] LABORATORY Comment: Supplemental ranges: <140 mg/dL before meals <180 mg/dL all other times of the day Specimen Anatomical Collection Method Collection Time Receive d Time (Source) Location / / Volume Laterality Blood specimen 08/13/2017 10:16 8 (specimen) AM EST 10:16 AM EST Yonathan Smith MD POINT OF CARE TEST ORDERABLE S Performing Organization Address City/Va Hospital/[place] [address] HOSPITAL [address] JULIAN, legs, multiple levels (08/13/2017 7:42 AM EST) Component Value Ref Test Analysis Performed At Patholo gist Range Method Time Signature VB Text Department: Vascular Surgery Lab VASCUBASE Report Patient: [id number] (GREGORY HOANG) CPT: 72572 ICD10: I99.8 Referring Physician: YONATHAN SMITH ?? Indications: s/p R 1,2,3 toe amps with red left foot, need n ew baseline Diabetes mellitus: yes ICD10 Diagnosis Code: I99.8 Findings: Right ?Pressure (mm Hg) ?? JULIAN ??Waveform ?TBI ?? Brachial Artery ?138 ? Dorsalis Pedis (Ankle) Arter y ?132 ? 0.94 ??[place]- Biphasic ? Posterior Tibial (Ankle) Art anila ??154 ? 1.10 ??[place]-Biphasic ? Fourth Toe ? 67 ? 0.48 [...] Smith MD VASCULAR ORDERABLES Performing Organization Address City/[facility] Hospital/ZIP Code Phon e Number VASCUBASE POCT Glucose (08/13/2017 7:33 AM EST) P athologist Signature POC Glucose 156 65 - 199 [facility] mg/dL [facility] LABORATORY Comment: Supplemental ranges: <140 mg/dL before meals <180 mg/dL all other times of the day Specimen Anatomical Collection Method Collection Time Receive d Time (Source) Location / / Volume Laterality Blood specimen 08/13/2017 7:33 AM 018 7:33 (specimen) EST AM EST Yonathan Smith MD POINT OF CARE TEST ORDERABLE S Performing Organization Address City/State/[place] [address] (ABNORMAL) Differential, Automated (08/13/2017 5:33 AM EST) Patholo gist Method Time Signature Neutrophils % 77.8 % [facility] LABORATORY Neutr Abs (ANC) 7.83 (H) 1.70 - [facility] 6.10 [facility] x10(3)/[facility] L LABORATORY Lymphocytes % 8.4 % [facility] LABOR[facility] Lymphocytes Abs 0.8 (L) 0.9 - 3.2 [facility] x10(3)/[facility] LABORATORY Monocytes % 8.3 % [facility] LABOR[facility] Monocyte Abs 0.8 0.3 - 0.9 [facility] x10(3)/[facility] LABORATORY Eosinophils % 4.6 % [facility] Eosinophils Abs 0.5 (H) 0.0 - 0.4 [facility] x10(3)/[facility] LABORATORY Basophils % 0.5 % [facility] Basophils Abs 0.0 0.0 - 0.1 [facility] x10(3)/[facility] LABORATORY Immature Gran % 0.40 % [facility] LAB[facility] Comment: Immature granulocytes(IG's)percentage an d absolute count will include metamyelocytes, myelocytes, and promyelo cytes. Blood smears from CBCs yielding IG's will be scanned manually for concor dance. If this scan disagrees with the automated IG or if promyelocytes are not ed, a manual differential will be performed. Melisa Gran Abs 0.04 0.00 - 0.04 x10(3)/[facility] LABORATORY Specimen Anatomical Collection Method Collection Time Receive d Time (Source) Location / / Volume Laterality Blood specimen 08/13/2017 5:33 AM 018 6:04 (specimen) EST AM EST Resulting Agency Comment Spec In Lab Yonathan Smith MD HEMATOLOGY ORDERABLES Performing Organization Address City/State/[place] [address] (ABNORMAL) Hemogram (08/13/2017 5:33 AM EST) Analysis Performed At Patho logist Time Signature WBC 10.1 (H) 4.0 - 9.5 [facility] x10(3)/[facility] LABORATORY RBC 3.21 (L) 4.58 - [facility] 5.54 [facility] x10(6)/[facility] LABORATORY Hemoglobin 9.2 (L) 13.7 - [facility] 16.5 gm/dL [facility] LABORATORY Hematocrit 29.6 (L) 40.5 - [facility] 48.5 % [facility] LABORATORY MCV 92.2 82.9 - [facility] 93.1 [facility] LABORATORY MCH 28.7 27.5 - BARBARA DAVIS 32.1 pg [facility] LABORATORY MCHC 31.1 (L) 32.0 - [facility] DAVIS 35.7 gm/dL [facility] LABORATORY Platelets 263 145 - 357 BARBARA GLENCOE x10(3)/[facility] LABORATORY RDWSD 54.8 (H) 36.0 - [facility] DAVIS 45.0 [facility] LABORATORY RDWCV 16.4 (H) 11.4 - [facility] RYAN 13.8 % [facility] LABORATORY MPV 9.2 7.6 - 12.9 [facility] LABORATORY nRBC % Auto 0.0 % [facility] LABORATORY nRBC Abs Auto 0.000 0.000 - BARBARA RYAN 0.000 [facility] x10(3)/[facility] LABORATORY Specimen Anatomical Collection Method Collection Time Receive d Time (Source) Location / / Volume Laterality Blood specimen 08/13/2017 5:33 AM 018 6:04 (specimen) EST AM EST Resulting Agency Comment Spec In Lab Yonathan Smith MD HEMATOLOGY ORDERABLES Performing Organization Address City/State/Z[place] [address] (ABNORMAL) Prothrombin Time (08/13/2017 5:33 AM EST) P athologist Signature PT 17.3 (H) 11.8 - 14.0 [facility] LABORATORY INR 1.4 (H) 0.9 - 1.1 [facility] LABORATORY Comment: An INR [...] Organization Address City/State/ZIP [place] [address] (ABNORMAL) Basic Metabolic Panel (non-fasting) (08/13/2017 5:33 AM EST) P athologist Signature Glucose Lvl 126 65 - 199 [facility] mg/dL [facility] LABOR[facility] Comment: Diabetes: >=200 mg/dL plus symp toms BUN 18 10 - 20 mg/dL [facility] LABORATORY Creatinine 1.16 0.80 - 1.50 mg/dL [facility] LABORATORY Sodium 141 135 - 145 mmol/L [facility] [...] Anion Gap 12 5 - 15 mmol/L [facility] LABORATORY Calcium 7.9 (L) 8.5 - 10.5 mg/dL [facility] LABORATORY Estimated GFR >60 >=60 [facility] LABORATORY Comment: The reported eGFR should be multiplied b y 1.2 for patients. The MDRD is not an appropriate measure o f renal function for patients with body mass extremes or in patients with acute kidney failure. [email or web address] [email or web address] Specimen Anatomical Collection Method Collection Time Receive d Time (Source) Location / / Volume Laterality Blood specimen 08/13/2017 5:33 AM 018 6:04 (specimen) EST AM EST Resulting Agency Comment Spec In Lab Yonathan Smith MD CHEMISTRY ORDERABLES Performing Organization Address City/State/ZIP [place] [address] POCT Glucose (08/13/2017 4:29 AM EST) athologist Signature POC Glucose 111 65 - 199 BARBARA ZHAORYAN mg/dL [facility] LAB[facility] Comment: Supplemental ranges: <140 mg/dL before meals <180 mg/dL all other times of the day Specimen Anatomical Collection Method Collection Time Receive d Time (Source) Location / / Volume Laterality Blood specimen 08/13/2017 4:29 AM 018 4:29 (specimen) EST AM EST Yonathan Smith MD POINT OF CARE TEST ORDERABLE S Performing Organization Address City/Va Hospital/[place]IP [place] [address] POCT Glucose (08/12/2017 11:28 PM EST) athologist Signature POC Glucose 164 65 - 199 BARBARA ZHAORYAN mg/dL [facility] LAB[facility] Comment: Supplemental ranges: <140 mg/dL before meals <180 mg/dL all other times of the day Specimen Anatomical Collection Method Collection Time Receive d Time (Source) Location / / Volume Laterality Blood specimen 08/12/2017 11:28 8 (specimen) PM EST 11:28 PM EST Yonathan Smith MD POINT OF CARE TEST ORDERABLE S Performing Organization Address City/[facility] Hospital/[place]IP [place] [address] (ABNORMAL) POCT Glucose (08/12/2017 7:40 PM EST) athologist Signature POC Glucose 209 (H) 65 - 199 BRABARA ZHAOYRAN mg/dL [facility] LAB[facility] Comment: Supplemental ranges: <140 mg/dL before meals <180 mg/dL all other times of the day Specimen Anatomical Collection Method Collection Time Receive d Time (Source) Location / / Volume Laterality Blood specimen 08/12/2017 7:40 PM 018 7:40 (specimen) EST PM EST Yonathan Smith MD POINT OF CARE TEST ORDERABLE S Performing Organization Address City/State/ZIP [place] [address] POCT Glucose (08/12/2017 4:24 PM EST) athologist Signature POC Glucose 161 65 - 199 [facility] mg/dL [facility] LAB[facility] Comment: Supplemental ranges: <140 mg/dL before meals <180 mg/dL all other times of the day Specimen Anatomical Collection Method Collection Time Receive d Time (Source) Location / / Volume Laterality Blood specimen 08/12/2017 4:24 PM 018 4:24 (specimen) EST PM EST Yonathan Smith MD POINT OF CARE TEST ORDERABLE S Performing Organization Address City/State/ZIP Code Phon e Number [address] POCT Glucose (08/12/2017 12:00 PM EST) athologist Signature POC Glucose 167 65 - 199 [facility] mg/dL [facility] LAB[facility] Comment: Supplemental ranges: <140 mg/dL before meals <180 mg/dL all other times of the day Specimen Anatomical Collection Method Collection Time Receive d Time (Source) Location / / Volume Laterality Blood specimen 08/12/2017 12:00 8 (specimen) PM EST 12:00 PM EST Yonathan Smith MD POINT OF CARE TEST ORDERABLE S Performing Organization Address City/State/ZIP [place] [address] POCT Glucose (08/12/2017 7:25 AM EST) athologist Signature POC Glucose 152 65 - 199 [facility]BAR[facility] RYAN mg/dL [facility] Comment: Supplemental ranges: <140 mg/dL before meals <180 mg/dL all other times of the day Specimen Anatomical Collection Method Collection Time Receive d Time (Source) Location / / Volume Laterality Blood specimen 08/12/2017 7:25 AM 018 7:25 (specimen) EST AM EST Yonathan Smith MD POINT OF CARE TEST ORDERABLE S Performing Organization Address City/State/Z[place] [address] (ABNORMAL) Differential, Automated (08/12/2017 6:29 AM EST) Patholo gist Method Time Signature Neutrophils % 78.7 % [facility] Neutr Abs (ANC) 7.94 (H) 1.70 - [facility] 6.10 [facility] x10(3)/[facility] LABORATORY Lymphocytes % 8.8 % [facility] LABORATORY Lymphocytes Abs 0.9 0.9 - 3.2 [facility] x10(3)/[facility] LABORATORY Monocytes % 7.8 % [facility] LABORATORY Monocyte Abs 0.8 0.3 - 0.9 [facility] x10(3)/[facility] LABORATORY Eosinophils % 3.9 % [facility] LABOR[facility]ORY Eosinophils Abs 0.4 0.0 - 0.4 [facility] x10(3)/[facility] LABORATORY Basophils % 0.3 % [facility] Basophils Abs 0.0 0.0 - 0.1 [facility] x10(3)/[facility] LABORATORY Immature Gran % 0.50 % [facility] Comment: Immature [...] Organization Address City/State/ZIP Code Phon e Number [place] [id number] (ABNORMAL) Hemogram (08/12/2017 6:29 AM EST) Analysis Performed At Path logist Time Signature WBC 10.1 (H) 4.0 - 9.5 [facility] x10(3)/[facility] LABORATORY RBC 3.02 (L) 4.58 - [facility] 5.54 [facility] x10(6)/[facility] LABORATORY Hemoglobin 8.7 (L) 13.7 - [facility] 16.5 gm/dL [facility] LABORATORY Hematocrit 28.1 (L) 40.5 - [facility] 48.5 % [facility] LABORATORY MCV 93.0 82.9 - [facility] 93.1 [facility] LABORATORY MCH 28.8 27.5 - [facility] 32.1 pg [facility] LABORATORY MCHC 31.0 (L) 32.0 - [facility] 35.7 gm/dL [facility] LAB[facility] Platelets 223 145 - 357 [facility] x10(3)/[facility] LABORATORY RDWSD 56.1 (H) 36.0 - [facility] 45.0 [place] RDWCV 16.4 (H) 11.4 - [facility] 13.8 % [facility] LABORATORY MPV 9.0 7.6 - 12.9 [facility] LABORATORY nRBC % Auto 0.0 % [facility] LABORATORY nRBC Abs Auto 0.000 0.000 - [facility] 0.000 [facility] x10(3)/[facility] LABORATORY Specimen Anatomical Collection Method Collection Time Receive d Time (Source) Location / / Volume Laterality Blood specimen 08/12/2017 6:29 AM 018 6:38 (specimen) EST AM EST Resulting Agency Comment Spec In Lab Yonathan Smith MD HEMATOLOGY ORDERABLES Performing Organization Address City/State/Z[place] [address] (ABNORMAL) Prothrombin Time (08/12/2017 6:29 AM EST) athologist Signature PT 16.1 (H) 11.8 - 14.0 [facility] LABORATORY INR 1.3 (H) 0.9 - 1.1 [facility] LAB[facility] Comment: An INR [...] Organization Address City/State/ZIP Code Phon e Number [place] [id number]OS[address] Drive (ABNORMAL) Basic Metabolic Panel (non-fasting) (08/12/2017 6:29 AM EST) P athologist Signature Glucose Lvl 151 65 - 199 [facility] mg/dL [facility] LAB[facility] Comment: Diabetes: >=200 mg/dL plus symp toms BUN 18 10 - 20 mg/dL [facility] LABORATORY Creatinine 1.11 0.80 - 1.50 mg/dL [facility] LABORATORY Sodium 138 135 - [...] estions. Chloride 99 98 - 107 mmol/L [facility] LAB[facility]ORY CO2 28 22 - 31 mmol/L [facility] Anion Gap 11 5 - 15 mmol/L [facility] LABORATORY Calcium 7.9 (L) 8.5 - 10.5 mg/dL [facility] LABORATORY Estimated GFR >60 >=60 [facility] LABOR[facility]ORY Comment: The reported eGFR should be multiplied b y 1.2 for patients. The MDRD is not an appropriate measure o f renal function for patients with body mass extremes or in patients with acute kidney failure. [email or web address]/DHnkdep [email or web address]/DHMCnkf Specimen Anatomical Collection Method Collection Time Receive d Time (Source) Location / / Volume Laterality Blood specimen 08/12/2017 6:29 AM 018 6:38 (specimen) EST AM EST Resulting Agency Comment Spec In Lab Yonathan Smith MD CHEMISTRY ORDERABLES Performing Organization Address City/State/ZIP Code Phon e Number [address] POCT Glucose (08/12/2017 4:08 AM EST) athologist Signature POC Glucose 181 65 - 199 [facility] RYAN mg/dL [facility] LABORATORY Comment: Supplemental ranges: <140 mg/dL before meals <180 mg/dL all other times of the day Specimen Anatomical Collection Method Collection Time Receive d Time (Source) Location / / Volume Laterality Blood specimen 08/12/2017 4:08 AM 018 4:08 (specimen) EST AM EST Yonathan Smith MD POINT OF CARE TEST ORDERABLE S Performing Organization Address City/Va Hospital/[place] [address] (ABNORMAL) POCT Glucose (08/12/2017 12:17 AM EST) athologist Signature POC Glucose 221 (H) 65 - 199 [facility] RYAN mg/dL [facility] LABOR[facility] Comment: Supplemental ranges: <140 mg/dL before meals <180 mg/dL all other times of the day Specimen Anatomical Collection Method Collection Time Receive d Time (Source) Location / / Volume Laterality Blood specimen 08/12/2017 12:17 8 (specimen) AM EST 12:17 AM EST Yonathan Smith MD POINT OF CARE TEST ORDERABLE S Performing Organization Address City/[facility] Hospital/ZIP Code Phon e Number [address] (ABNORMAL) POCT Glucose (08/11/2017 8:52 PM EST) athologist Signature POC Glucose 221 (H) 65 - 199 [facility] RYAN mg/dL [facility] LABORATORY Comment: Supplemental ranges: <140 mg/dL before meals <180 mg/dL all other times of the day Specimen Anatomical Collection Method Collection Time Receive d Time (Source) Location / / Volume Laterality Blood specimen 08/11/2017 8:52 PM 018 8:52 (specimen) EST PM EST Yonathan Smith MD POINT OF CARE TEST ORDERABLE S Performing Organization Address City/State/Z[place] [address] POCT Glucose (08/11/2017 5:59 PM EST) athologist Signature POC Glucose 169 65 - 199 BARBARA ZHAORYAN mg/dL [facility] LABOR[facility] Comment: Supplemental ranges: <140 mg/dL before meals <180 mg/dL all other times of the day Specimen Anatomical Collection Method Collection Time Receive d Time (Source) Location / / Volume Laterality Blood specimen 08/11/2017 5:59 PM 018 5:59 (specimen) EST PM EST Yonathan Smith MD POINT OF CARE TEST ORDERABLE S Performing Organization Address City/State/Z[place] [address] (ABNORMAL) POCT Glucose (08/11/2017 4:08 PM EST) athologist Signature POC Glucose 240 (H) 65 - 199 [facility] RYAN mg/dL [facility] LAB[facility] Comment: Supplemental ranges: <140 mg/dL before meals <180 mg/dL all other times of the day Specimen Anatomical Collection Method Collection Time Receive d Time (Source) Location / / Volume Laterality Blood specimen 08/11/2017 4:08 PM 018 4:08 (specimen) EST PM EST Yonathan Smith MD POINT OF CARE TEST ORDERABLE S Performing Organization Address City/State/ZIP Code Phon e Number [address] POCT Glucose (08/11/2017 12:04 PM EST) athologist Signature POC Glucose 182 65 - 199 [facility] RYAN mg/dL [facility] LABOR[facility]ORY Comment: Supplemental ranges: <140 mg/dL before meals <180 mg/dL all other times of the day Specimen Anatomical Collection Method Collection Time Receive d Time (Source) Location / / Volume Laterality Blood specimen 08/11/2017 12:04 8 (specimen) PM EST 12:04 PM EST Yonathan Smith MD POINT OF CARE TEST ORDERABLE S Performing Organization Address City/State/Z[place] [address] POCT Glucose (08/11/2017 7:31 AM EST) P athologist Signature POC Glucose 156 65 - 199 [facility] mg/dL [facility] LAB[facility] Comment: Supplemental ranges: <140 mg/dL before meals <180 mg/dL all other times of the day Specimen Anatomical Collection Method Collection Time Receive d Time (Source) Location / / Volume Laterality Blood specimen 08/11/2017 7:31 AM 018 7:31 (specimen) EST AM EST Yonathan Smith MD POINT OF CARE TEST ORDERABLE S Performing Organization Address City/State/Z[place] [address] (ABNORMAL) Differential, Automated (08/11/2017 6:16 AM EST) Patholo gist Method Time Signature Neutrophils % 83.7 % [facility] LABOR[facility]ORY Neutr Abs (ANC) 10.76 (H) 1.70 - [facility] 6.10 [facility] x10(3)/[facility] L LABORATORY Lymphocytes % 6.0 % [facility] LABORATORY Lymphocytes Abs 0.8 (L) 0.9 - 3.2 [facility] x10(3)/[facility] LABORATORY Monocytes % 7.5 % [facility] LABORATORY Monocyte Abs 1.0 (H) 0.3 - 0.9 [facility] x10(3)/[facility] LABORATORY Eosinophils % 2.0 % [facility]ORY Eosinophils Abs 0.3 0.0 - 0.4 [facility] x10(3)/[facility] LABORATORY Basophils % 0.3 % [facility] Basophils Abs 0.0 0.0 - 0.1 [facility] x10(3)/[facility] LABORATORY Immature Gran % 0.50 % [facility] Comment: Immature granulocytes(IG's)percentage an d absolute count will include metamyelocytes, myelocytes, and promyelo cytes. Blood smears from CBCs yielding IG's will be scanned manually for concor dance. If this scan disagrees with the automated IG or if promyelocytes are not ed, a manual differential will be performed. Melisa Gran Abs 0.06 (H) 0.00 - 0.04 x10(3)/[facility] LABORATORY Specimen Anatomical Collection Method Collection Time Receive d Time (Source) Location / / Volume Laterality Blood specimen 08/11/2017 6:16 AM 018 6:24 (specimen) EST AM EST Resulting Agency Comment Spec In Lab Yonathan Smith MD HEMATOLOGY ORDERABLES Performing Organization Address City/State/Z[place] [address] (ABNORMAL) Hemogram (08/11/2017 6:16 AM EST) Analysis Performed At Patho logist Time Signature WBC 12.9 (H) 4.0 - 9.5 [facility] x10(3)/[facility] LABORATORY RBC 3.28 (L) 4.58 - [facility] 5.54 [facility] x10(6)/[facility] LABORATORY Hemoglobin 9.5 (L) 13.7 - [facility] 16.5 gm/dL [facility] LABORATORY Hematocrit 29.8 (L) 40.5 - [facility] 48.5 % [facility] LABORATORY MCV 90.9 82.9 - [facility] 93.1 [facility] LABORATORY MCH 29.0 27.5 - [facility] 32.1 pg [facility] LABORATORY MCHC 31.9 (L) 32.0 - [facility] 35.[facility] gm/dL [facility] LABORATORY Platelets 236 145 - 357 [facility] x10(3)/[facility] LABORATORY RDWSD 53.5 (H) 36.0 - [facility] 45.0 [facility] LABORATORY RDWCV 16.3 (H) 11.4 - [facility] 13.8 % [facility] LABORATORY MPV 8.8 7.6 - 12.9 [facility] LABORATORY nRBC % Auto 0.0 % [facility] LABORATORY nRBC Abs Auto 0.000 0.000 - [facility] DAVIS 0.000 [facility] x10(3)/[facility] LABORATORY Specimen Anatomical Collection Method Collection Time Receive d Time (Source) Location / / Volume Laterality Blood specimen 08/11/2017 6:16 AM 018 6:24 (specimen) EST AM EST Resulting Agency Comment Spec In Lab Yonathan Smith MD HEMATOLOGY ORDERABLES Performing Organization Address City/State/Z[place] [address] (ABNORMAL) Prothrombin Time (08/11/2017 6:16 AM EST) P athologist Signature PT 15.5 (H) 11.8 - 14.0 [facility] LABORATORY INR 1.3 (H) 0.9 - 1.1 [facility] Comment: An INR [...] Organization Address City/State/Z[place] [address] Basic Metabolic Panel (non-fasting) (08/11/2017 6:16 AM EST) P athologist Signature Glucose Lvl 139 65 - 199 [facility] mg/dL [facility] LABORATORY Comment: Diabetes: >=200 mg/dL plus symp toms BUN 12 10 - 20 mg/dL [facility] LABORATORY Creatinine 0.91 0.80 - 1.50 mg/dL [facility] LABORATORY Sodium 138 135 - [...] estions. Chloride 98 98 - 107 mmol/L [facility] CO2 27 22 - 31 mmol/L [facility] Anion Gap 13 5 - 15 mmol/L [facility] LABORATORY Calcium 8.5 8.5 - 10.5 mg/dL [facility] LABORATORY Estimated GFR >60 >=60 [facility] Comment: The reported eGFR should be multiplied b y 1.2 for patients. The MDRD is not an appropriate measure o f renal function for patients with body mass extremes or in patients with acute kidney failure. [email or web address] [email or web address] Specimen Anatomical Collection Method Collection Time Receive d Time (Source) Location / / Volume Laterality Blood specimen 08/11/2017 6:16 AM 018 6:24 (specimen) EST AM EST Resulting Agency Comment Spec In Lab Yonathan Smith MD CHEMISTRY ORDERABLES Performing Organization Address City/State/[place] [address] POCT Glucose (08/11/2017 4:07 AM EST) athologist Signature POC Glucose 162 65 - 199 [facility] mg/dL [facility] Comment: Supplemental ranges: <140 mg/dL before meals <180 mg/dL all other times of the day Specimen Anatomical Collection Method Collection Time Receive d Time (Source) Location / / Volume Laterality Blood specimen 08/11/2017 4:07 AM 018 4:07 (specimen) EST AM EST Yonathan Smith MD POINT OF CARE TEST ORDERABLE S Performing Organization Address City/Va Hospital/ZIP Code Phon e Number [address] POCT Glucose (08/10/2017 11:59 PM EST) athologist Signature POC Glucose 166 65 - 199 [facility] mg/dL [facility] Comment: Supplemental ranges: <140 mg/dL before meals <180 mg/dL all other times of the day Specimen Anatomical Collection Method Collection Time Receive d Time (Source) Location / / Volume Laterality Blood specimen 08/10/2017 11:59 8 (specimen) PM EST 11:59 PM EST Yonathan Smith MD POINT OF CARE TEST ORDERABLE S Performing Organization Address City/Va Hospital/ZIP Code Phon e Number [address] POCT Glucose (08/10/2017 8:12 PM EST) athologist Signature POC Glucose 156 65 - 199 [place] mg/dL [facility] Comment: Supplemental ranges: <140 mg/dL before meals <180 mg/dL all other times of the day Specimen Anatomical Collection Method Collection Time Receive d Time (Source) Location / / Volume Laterality Blood specimen 08/10/2017 8:12 PM 018 8:12 (specimen) EST PM EST Yonathan Smith MD POINT OF CARE TEST ORDERABLE S Performing Organization Address City/Va Hospital/[place]IP [place] [address] (ABNORMAL) POCT Glucose (08/10/2017 4:42 PM EST) athologist Signature POC Glucose 211 (H) 65 - 199 [facility] mg/dL [facility] Comment: Supplemental ranges: <140 mg/dL before meals <180 mg/dL all other times of the day Specimen Anatomical Collection Method Collection Time Receive d Time (Source) Location / / Volume Laterality Blood specimen 08/10/2017 4:42 PM 018 4:42 (specimen) EST PM EST Yonathan Smith MD POINT OF CARE TEST ORDERABLE S Performing Organization Address City/State/ZIP Code Phon e Number [place] [id number]OSPITAL LAB[address]ORY Drive (ABNORMAL) Differential, Automated (08/10/2017 2:30 PM EST) [facility] Method Time Signature Neutrophils % 87.6 % [facility] Neutr Abs (ANC) 9.90 (H) 1.70 - [facility] 6.10 [facility] x10(3)/[facility] L LABORATORY Lymphocytes % 4.3 % [facility] Lymphocytes Abs 0.5 (L) 0.9 - 3.2 [facility] x10(3)/[facility] LABORATORY Monocytes % 6.0 % [facility] Monocyte Abs 0.7 0.3 - 0.9 [facility] x10(3)/[facility] LABORATORY Eosinophils % 1.1 % [facility] Eosinophils Abs 0.1 0.0 - 0.4 [facility] x10(3)/[facility] LABORATORY Basophils % 0.4 % [facility] Basophils Abs 0.0 0.0 - 0.1 [facility] x10(3)/[facility] LABORATORY Immature Gran % 0.60 % [facility] Comment: Immature granulocytes(IG's)percentage an d absolute count will include metamyelocytes, myelocytes, and promyelo cytes. Blood smears from CBCs yielding IG's will be scanned manually for concor dance. If this scan disagrees with the automated IG or if promyelocytes are not ed, a manual differential will be performed. Melisa Gran Abs 0.07 (H) 0.00 - 0.04 x10(3)/[facility] LABORATORY Specimen Anatomical Collection Method Collection Time Receive d Time (Source) Location / / Volume Laterality Blood specimen 08/10/2017 2:30 PM 018 2:48 (specimen) EST PM EST Resulting Agency Comment Spec In Lab Yonathan Smith MD HEMATOLOGY ORDERABLES Performing Organization Address City/State/ZIP [place] [address] (ABNORMAL) Hemogram (08/10/2017 2:30 PM EST) Analysis Performed At Patho logist Time Signature WBC 11.3 (H) 4.0 - 9.5 [facility] x10(3)/[facility] LABORATORY RBC 3.13 (L) 4.58 - [facility] 5.54 [facility] x10(6)/[facility] LABORATORY Hemoglobin 8.9 (L) 13.7 - [facility] 16.5 gm/dL [facility] Hematocrit 28.4 (L) 40.5 - [facility] 48.5 % [facility] MCV 90.7 82.9 - [facility] 93.1 [facility] LABORATORY MCH 28.4 27.5 - [facility] 32.1 pg [facility] MCHC 31.3 (L) 32.0 - [facility] 35.7 gm/dL [facility] Platelets 213 145 - 357 [facility] x10(3)/[facility] LABORATORY RDWSD 53.7 (H) 36.0 - [facility] 45.0 [facility] LABORATORY RDWCV 16.4 (H) 11.4 - [facility] 13.8 % [facility] MPV 8.9 7.6 - 12.9 [facility] LABORATORY nRBC % Auto 0.0 % [facility] nRBC Abs Auto 0.000 0.000 - [facility] 0.000 [facility] x10(3)/[facility] LABORATORY Specimen Anatomical Collection Method Collection Time Receive d Time (Source) Location / / Volume Laterality Blood specimen 08/10/2017 2:30 PM 018 2:48 (specimen) EST PM EST Resulting Agency Comment Spec In Lab Yonathan Smith MD HEMATOLOGY ORDERABLES Performing Organization Address City/State/ZIP [place] [address] (ABNORMAL) POCT Glucose (08/10/2017 1:50 PM EST) P athologist Signature POC Glucose 243 (H) 65 - 199 [facility] mg/dL [facility] Comment: Supplemental ranges: <140 mg/dL before meals <180 mg/dL all other times of the day Specimen Anatomical Collection Method Collection Time Receive d Time (Source) Location / / Volume Laterality Blood specimen 08/10/2017 1:50 PM 018 1:50 (specimen) EST PM EST Yonathan Smith MD POINT OF CARE TEST ORDERABLE S Performing Organization Address City/State/ZIP Code Phon e Number [address] POCT Glucose (08/10/2017 11:21 AM EST) P athologist Signature POC Glucose 156 65 - 199 [facility] mg/dL [facility] Comment: Supplemental ranges: <140 mg/dL before meals <180 mg/dL all other times of the day Specimen Anatomical Collection Method Collection Time Receive d Time (Source) Location / / Volume Laterality Blood specimen 08/10/2017 11:21 8 (specimen) AM EST 11:21 AM EST Yonathan Smith MD POINT OF CARE TEST ORDERABLE S Performing Organization Address City/State/ZIP Code Phon e Number [address] (ABNORMAL) Differential, Automated (08/10/2017 10:28 AM EST) Patholo gist Method Time Signature Neutrophils % 85.3 % [facility] Neutr Abs (ANC) 9.43 (H) 1.70 - [facility] 6.10 [facility] x10(3)/[facility] L LABORATORY Lymphocytes % 5.5 % [facility] Lymphocytes Abs 0.6 (L) 0.9 - 3.2 [facility] x10(3)/[facility] LABORATORY Monocytes % 5.9 % [facility] Monocyte Abs 0.6 0.3 - 0.9 [facility] x10(3)/[facility] LABORATORY Eosinophils % 2.1 % [facility] Eosinophils Abs 0.2 0.0 - 0.4 [facility] x10(3)/[facility] LABORATORY Basophils % 0.4 % [facility] Basophils Abs 0.0 0.0 - 0.1 [facility] x10(3)/[facility] LABORATORY Immature Gran % 0.80 % [facility] Comment: Immature granulocytes(IG's)percentage an d absolute count will include metamyelocytes, myelocytes, and promyelo cytes. Blood smears from CBCs yielding IG's will be scanned manually for concor dance. If this scan disagrees with the automated IG or if promyelocytes are not ed, a manual differential will be performed. Melisa Gran Abs 0.09 (H) 0.00 - 0.04 x10(3)/[facility] LABORATORY Specimen Anatomical Collection Method Collection Time Receive d Time (Source) Location / / Volume Laterality Blood specimen 08/10/2017 10:28 8 (specimen) AM EST 10:35 AM EST Resulting Agency Comment Spec In Lab Yonathan Smith MD HEMATOLOGY ORDERABLES Performing Organization Address City/State/Z[place] [address] (ABNORMAL) Hemogram (08/10/2017 10:28 AM EST) Analysis Performed At Patho logist Time Signature WBC 11.0 (H) 4.0 - 9.5 [facility] x10(3)/[facility] LABORATORY RBC 3.02 (L) 4.58 - [facility] 5.54 [facility] x10(6)/[facility] LABORATORY Hemoglobin 8.8 (L) 13.7 - [facility] 16.5 gm/dL [facility] Hematocrit 28.1 (L) 40.5 - [facility] 48.5 % [facility] MCV 93.0 82.9 - [facility] 93.1 [facility] LABORATORY MCH 29.1 27.5 - [facility] 32.1 pg [facility] MCHC 31.3 (L) 32.0 - [facility] 35.7 gm/dL [facility] Platelets 207 145 - 357 [facility] x10(3)/[facility] LABORATORY RDWSD 55.3 (H) 36.0 - [facility] 45.0 [facility] LABORATORY RDWCV 16.4 (H) 11.4 - [facility] 13.8 % [facility] MPV 9.0 7.6 - 12.9 [facility] LABORATORY nRBC % Auto 0.0 % [facility] nRBC Abs Auto 0.000 0.000 - [facility] 0.000 [facility] x10(3)/[facility] LABORATORY Specimen Anatomical Collection Method Collection Time Receive d Time (Source) Location / / Volume Laterality Blood specimen 08/10/2017 10:28 8 (specimen) AM EST 10:35 AM EST Resulting Agency Comment Spec In Lab Yonathan Smith MD HEMATOLOGY ORDERABLES Performing Organization Address City/State/ZIP Code Phon e Number [place] [id number] HOSPITAL LABORATORY Drive VS Angiogram/intervention (vascular) (08/10/2017 [...] 2.5x80 5. Completion RLE angiogram 6. L ADJUNCT HISTORY INSTRUCTOR angiogram 7. 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 L ADJUNCT HISTORY INSTRUCTOR access in the distal L ADJUNCT HISTORY INSTRUCTOR. - Closure device: Mynx Technical Procedure: ?The [...] for a 45cm 5F Destination. V18 and [place] a nd QuickCross catheters were used to [...] bifurcation. Access appeared in the distal R ADJUNCT HISTORY INSTRUCTOR. Closure and sheath removal was performed with [...] 2.5x80 5. Completion RLE angiogram 6. L ADJUNCT HISTORY INSTRUCTOR angiogram 7. 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 L ADJUNCT HISTORY INSTRUCTOR access in the distal L ADJUNCT HISTORY INSTRUCTOR. - Closure device: Mynx Technical Procedure: The [...] for a 45cm 5F Destination. V18 and [place] a nd QuickCross catheters were used to [...] bifurcation. Access appeared in the distal R ADJUNCT HISTORY INSTRUCTOR. Closure and sheath removal was performed with [...] (ABNORMAL) Differential, Automated (08/10/2017 5:50 AM EST) [facility] Method Time Signature Neutrophils % 80.1 % [facility] Neutr Abs (ANC) 9.01 (H) 1.70 - [facility] 6.10 [facility] x10(3)/[facility] LABORATORY Lymphocytes % 8.8 % [facility] Lymphocytes Abs 1.0 0.9 - 3.2 [facility] x10(3)/[facility] LABORATORY Monocytes % 8.3 % [facility] Monocyte Abs 0.9 0.3 - 0.9 [facility] x10(3)/[facility] LABORATORY Eosinophils % 2.0 % [facility] Eosinophils Abs 0.2 0.0 - 0.4 [facility] x10(3)/[facility] LABORATORY Basophils % 0.4 % [facility] Basophils Abs 0.0 0.0 - 0.1 [facility] x10(3)/[facility] LABORATORY Immature Gran % 0.40 % [facility] Comment: Immature [...] Organization Address City/State/ZIP [place] [address] (ABNORMAL) Hemogram (08/10/2017 5:50 AM EST) Analysis Performed At Patho logist Time Signature WBC 11.3 (H) 4.0 - 9.5 [facility] x10(3)/[facility] LABORATORY RBC 3.15 (L) 4.58 - [facility] 5.54 [facility] x10(6)/[facility] LABORATORY Hemoglobin 8.9 (L) 13.7 - [facility] 16.5 gm/dL [facility] Hematocrit 29.0 (L) 40.5 - [facility] 48.5 % [facility] MCV 92.1 82.9 - [facility] 93.1 [facility] LABORATORY MCH 28.3 27.5 - [facility] RAYN 32.1 pg [facility] MCHC 30.7 (L) 32.0 - [facility] 35.7 gm/dL [facility] Platelets 231 145 - 357 [facility] x10(3)/[facility] LABORATORY RDWSD 53.9 (H) 36.0 - [facility] 45.0 [facility] LABORATORY RDWCV 16.2 (H) 11.4 - [facility] 13.8 % [facility] MPV 8.7 7.6 - 12.9 [facility] LABORATORY nRBC % Auto 0.0 % [facility] nRBC Abs Auto 0.000 0.000 - [facility] 0.000 [facility] x10(3)/[facility] LABORATORY Specimen Anatomical Collection Method Collection Time Receive d Time (Source) Location / / Volume Laterality Blood specimen 08/10/2017 5:50 AM 018 5:59 (specimen) EST AM EST Resulting Agency Comment Spec In Lab Yonathan Smith MD HEMATOLOGY ORDERABLES Performing Organization Address City/State/Z[place] [address] (ABNORMAL) Basic Metabolic Panel (non-fasting) (08/10/2017 5:50 AM EST) P athologist Signature Glucose Lvl 135 65 - 199 [facility] mg/dL [facility] Comment: Diabetes: >=200 mg/dL plus symp toms BUN 17 10 - 20 mg/dL [facility] Creatinine 1.05 0.80 - 1.50 mg/dL [facility] estions. Chloride 104 98 - 107 mmol/L [facility] CO2 27 22 - 31 mmol/L [facility] Anion Gap 13 5 - 15 mmol/L [facility] Calcium 8.1 (L) 8.5 - 10.5 mg/dL [facility] Estimated GFR >60 >=60 [facility] Comment: The reported eGFR should be multiplied b y 1.2 for patients. The MDRD is not an appropriate measure o f renal function for patients with body mass extremes or in patients with acute kidney failure. http://[employer]/DHnkdep http://[employer]/DHMCnkf Specimen Anatomical Collection Method Collection Time Receive d Time (Source) Location / / Volume Laterality Blood specimen 08/10/2017 5:50 AM 018 5:59 (specimen) EST AM EST Resulting Agency Comment Spec In Lab Yonathan Smith MD CHEMISTRY ORDERABLES Performing Organization Address City/State/ZIP Code Phon e Number [address] (ABNORMAL) Prothrombin Time (08/10/2017 5:50 AM EST) athologist Signature PT 16.8 (H) 11.8 - 14.0 [facility] LABORATORY INR 1.4 (H) 0.9 - 1.1 [facility] Comment: An INR [...] Smith MD HEMATOLOGY ORDERABLES Performing Organization Address City/Va Hospital/ZIP [place] [address] (ABNORMAL) POCT Glucose (08/10/2017 4:01 AM EST) athologist Signature POC Glucose 206 (H) 65 - 199 [facility] mg/dL [facility] Comment: Supplemental ranges: <140 mg/dL before meals <180 mg/dL all other times of the day Specimen Anatomical Collection Method Collection Time Receive d Time (Source) Location / / Volume Laterality Blood specimen 08/10/2017 4:01 AM 018 4:01 (specimen) EST AM EST Yonathan Smith MD POINT OF CARE TEST ORDERABLE S Performing Organization Address City/State/ZIP Code Phon e Number [address] POCT Glucose (08/10/2017 2:01 AM EST) athologist Signature POC Glucose 188 65 - 199 [facility] mg/dL [facility] Comment: Supplemental ranges: <140 mg/dL before meals <180 mg/dL all other times of the day Specimen Anatomical Collection Method Collection Time Receive d Time (Source) Location / / Volume Laterality Blood specimen 08/10/2017 2:01 AM 018 2:01 (specimen) EST AM EST Yonathan Smith MD POINT OF CARE TEST ORDERABLE S Performing Organization Address City/Va Hospital/[place] [address] (ABNORMAL) POCT Glucose (08/09/2017 11:42 PM EST) athologist Signature POC Glucose 283 (H) 65 - 199 [facility] mg/dL [facility] Comment: Supplemental ranges: <140 mg/dL before meals <180 mg/dL all other times of the day Specimen Anatomical Collection Method Collection Time Receive d Time (Source) Location / / Volume Laterality Blood specimen 08/09/2017 11:42 8 (specimen) PM EST 11:42 PM EST Yonathan Smith MD POINT OF CARE TEST ORDERABLE S Performing Organization Address City/Va Hospital/Z[place] [address] POCT Glucose (08/09/2017 8:55 PM EST) athologist Signature POC Glucose 182 65 - 199 [facility] mg/dL [facility] Comment: Supplemental ranges: <140 mg/dL before meals <180 mg/dL all other times of the day Specimen Anatomical Collection Method Collection Time Receive d Time (Source) Location / / Volume Laterality Blood specimen 08/09/2017 8:55 PM 018 8:55 (specimen) EST PM EST Yonathan Smith MD POINT OF CARE TEST ORDERABLE S Performing Organization Address City/Va Hospital/[place] [address] (ABNORMAL) APTT (08/09/2017 6:42 PM EST) athologist Signature PTT 90 (H) 25 - 35 sec [facility] Comment: The recommended therapeutic range for fu ll dose, unfractionated heparin at [facility] is 80 ? 114 seconds. The use [...] Smith MD HEMATOLOGY ORDERABLES Performing Organization Address City/Va Hospital/ZIP Code Phon e Number [address] POCT Glucose (08/09/2017 4:41 PM EST) athologist Signature POC Glucose 195 65 - 199 [facility] mg/dL [facility] Comment: Supplemental ranges: <140 mg/dL before meals <180 mg/dL all other times of the day Specimen Anatomical Collection Method Collection Time Receive d Time (Source) Location / / Volume Laterality Blood specimen 08/09/2017 4:41 PM 018 4:41 (specimen) EST PM EST Yonathan Smith MD POINT OF CARE TEST ORDERABLE S Performing Organization Address City/Va Hospital/ZIP Code Phon e Number [address] POCT Glucose (08/09/2017 12:29 PM EST) athologist Signature POC Glucose 140 65 - 199 [facility] mg/dL [facility] Comment: Supplemental ranges: <140 mg/dL before meals <180 mg/dL all other times of the day Specimen Anatomical Collection Method Collection Time Receive d Time (Source) Location / / Volume Laterality Blood specimen 08/09/2017 12:29 8 (specimen) PM EST 12:29 PM EST Yonathan Smith MD POINT OF CARE TEST ORDERABLE S Performing Organization Address City/State/ZIP Code Phon e Number [address] POCT Glucose (08/09/2017 9:59 AM EST) athologist Signature POC Glucose 135 65 - 199 [facility] mg/dL [facility] Comment: Supplemental ranges: <140 mg/dL before meals <180 mg/dL all other times of the day Specimen Anatomical Collection Method Collection Time Receive d Time (Source) Location / / Volume Laterality Blood specimen 08/09/2017 9:59 AM 018 9:59 (specimen) EST AM EST Yonathan Smith MD POINT OF CARE TEST ORDERABLE S Performing Organization Address [facility]/Va Hospital/ZIP [place] [address] Specimen to Pathology (08/09/2017 8:41 AM EST) Specimen Anatomical Collection Method Collection Time Receive d Time (Source) Location / / Volume Laterality AP Specimen 08/09/2017 8:41 AM 8 8:41 EST AM EST Narrative [facility] - 08/09/2017 8:41 AM EST Specimen requisition ordered. ??Separate Pathology report to follow Yonathan Smith MD PATHOLOGY/CYTOLOGY ORDERABLE S Performing Organization Address City/Va Hospital/[place] [address] Surgical Pathology Report (08/09/2017 8:40 AM EST) Component Value Ref Test Analysis Performed At [facility] Range Method Time Signature Surgical [id number] ? Location: [facility]; [facility]; A [facility] Report The signing pathologist has (i) examined the relevant preparation(s) for the [facility] specimen(s) and (ii) rendered or confirmed the diagnosis(es) . HOSPITAL LABORATORY . 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 ?Viable proximal resection margins. Electronically signed by: ??Henrique Saravia MD Verified: ??08/13/2017 ?Pathologist Performed at: ??-[facility] Dept. of Pathology, [place], [place] CLINICAL INFORMATION Specimen Submitted: A - [...] Organization Address City/State/[place] [address] Anaerobic Culture (08/09/2017 8:30 AM EST) [facility] gist Method Time Signature Anaerobic No anaerobic [facility] Culture organisms [facility] LABORATORY Specimen Anatomical Collection Method Collection Time [...] Organization Address City/State/[place] [address] (ABNORMAL) Abscess/Wound Aspirate Culture (08/09/2017 8:30 AM EST) Patholo gist Method Time Signature Abscess/Wound Moderate mixed [place] Aspirate bacterial [place] Culture morphotypes [facility] normal LABORATORY cutaneous leroy (A) Gram Stain Rare White Blood Cells BARBAR[place] Few Gram Positive Cocci in pairs [place] (A) [facility] LABORATORY Organism Gram Positive BARBARA Cocci in pairs [place] (A) [facility] LABORATORY Specimen Anatomical [...] - GENERAL ORDER ROBSON Performing Organization Address [facility]/Va Hospital/ZIP [facility] Phon e Number [address] POCT Glucose (08/09/2017 4:28 AM EST) P athologist Signature POC Glucose 128 65 - 199 [facility] mg/dL [facility] LABORATORY Comment: Supplemental ranges: <140 mg/dL before meals <180 mg/dL all other times of the day Specimen Anatomical Collection Method Collection Time Receive d Time (Source) Location / / Volume Laterality Blood specimen 08/09/2017 4:28 AM 018 4:28 (specimen) EST AM EST Yonathan Smith MD POINT OF CARE TEST ORDERABLE S Performing Organization Address City/Va Hospital/ZIP Code Phon e Number [address] ABORH Recheck Status (08/09/2017 1:10 AM EST) [facility] gist Method Time Signature ABORH Type Completed [facility] LABORATORY Specimen Anatomical Collection Method Collection Time Receive d Time (Source) Location / / Volume Laterality Blood specimen 08/09/2017 1:10 AM 018 1:35 (specimen) EST AM EST Resulting Agency Comment Spec In Lab Yonathan Smith MD BLOOD BANK ORDERABLES Performing Organization Address City/Va Hospital/[place]IP [place] [address] Antibody screen (08/09/2017 1:10 AM EST) Patholo gist Method Time Signature Ab Screen Negative [facility] LABORATORY Expires at 08/12/2017 BARBARA DAVIS [id number] on: [facility] LABORATORY Specimen Anatomical Collection Method Collection Time Receive d Time (Source) Location / / Volume Laterality Blood specimen 08/09/2017 1:10 AM 018 1:35 (specimen) EST AM EST Resulting Agency Comment Spec In Lab Yonathan Smith MD BLOOD BANK ORDERABLES Performing Organization Address City/Va Hospital/ZIP Code Phon e Number [address] ABO/Rh Typing (08/09/2017 1:10 AM EST) P athologist Signature ABORh Type O Pos [facility] LABORATORY Specimen Anatomical Collection Method Collection Time Receive d Time (Source) Location / / Volume Laterality Blood specimen 08/09/2017 1:10 AM 018 1:35 (specimen) EST AM EST Resulting Agency Comment Spec In Lab Yonathan Smith MD BLOOD BANK ORDERABLES Performing Organization Address City/Va Hospital/[place] [address] (ABNORMAL) APTT (08/09/2017 1:10 AM EST) P athologist Signature PTT 86 (H) 25 - 35 sec [facility] LABORATORY Comment: The recommended therapeutic range for fu ll dose, unfractionated heparin at [facility] is 80 ? 114 seconds. The use [...] Organization Address City/State/ZIP [place] [address] [facility] LABORATORY Drive (ABNORMAL) Differential, Automated (08/09/2017 1:10 AM EST) [facility] Method Time Signature Neutrophils % 76.2 % [facility] LABORATORY Neutr Abs (ANC) 8.59 (H) 1.70 - [facility] 6.10 [facility] x10(3)/[facility] LABORATORY Lymphocytes % 11.0 % [facility] LABORATORY Lymphocytes Abs 1.2 0.9 - 3.2 [facility] x10(3)/[facility] LABORATORY Monocytes % 8.4 % [facility] LABORATORY Monocyte Abs 1.0 (H) 0.3 - 0.9 [facility] x10(3)/[facility] LABORATORY Eosinophils % 3.5 % [facility] LABORATORY Eosinophils Abs 0.4 0.0 - 0.4 [facility] x10(3)/[facility] LABORATORY Basophils % 0.5 % [facility] LABORATORY Basophils Abs 0.1 0.0 - 0.1 [facility] x10(3)/[facility] LABORATORY Immature Gran % 0.40 % [facility] LABORATORY Comment: Immature [...] Organization Address City/State/ZIP [place] [address] (ABNORMAL) Hemogram (08/09/2017 1:10 AM EST) Analysis Performed At Patho logist Time Signature WBC 11.3 (H) 4.0 - 9.5 [facility] x10(3)/[facility] LABORATORY RBC 3.47 (L) 4.58 - BARBARA ZHAORYAN 5.54 [facility] x10(6)/[facility] LABORATORY Hemoglobin 10.0 (L) 13.7 - [facility] 16.5 gm/dL [facility] LABORATORY Hematocrit 31.9 (L) 40.5 - [facility] 48.5 % [facility] LABORATORY MCV 91.9 82.9 - [facility] 93.1 [facility] LABORATORY MCH 28.8 27.5 - [facility] 32.1 pg [facility] LABORATORY MCHC 31.3 (L) 32.0 - [facility] 35.7 gm/dL [facility] LABORATORY Platelets 234 145 - 357 [facility] x10(3)/[facility] LABORATORY RDWSD 54.0 (H) 36.0 - [facility] 45.0 [facility] LABORATORY RDWCV 16.2 (H) 11.4 - [facility] 13.8 % [facility] LABORATORY MPV 8.7 7.6 - 12.9 [facility] LABORATORY nRBC % Auto 0.0 % [facility] LABORATORY nRBC Abs Auto 0.000 0.000 - [facility] 0.000 [facility] x10(3)/[facility] LABORATORY Specimen Anatomical Collection Method Collection Time Receive d Time (Source) Location / / Volume Laterality Blood specimen 08/09/2017 1:10 AM 018 1:19 (specimen) EST AM EST Resulting Agency Comment Spec In Lab Yonathan Smith MD HEMATOLOGY ORDERABLES Performing Organization Address City/State/ZIP [place] [address] (ABNORMAL) Prothrombin Time (08/09/2017 1:10 AM EST) P athologist Signature PT 16.0 (H) 11.8 - 14.0 [facility] sec [facility] LABORATORY INR 1.3 (H) 0.9 - [...] Organization Address City/State/[place] [address] (ABNORMAL) Basic Metabolic Panel (non-fasting) (08/09/2017 1:10 AM EST) P athologist Signature Glucose Lvl 108 65 - 199 [facility] mg/dL [facility] LABORATORY Comment: Diabetes: >=200 mg/dL plus symp toms BUN 34 (H) 10 - 20 mg/dL [facility] LABORATORY Creatinine 1.54 (H) 0.80 - 1.50 mg/dL [facility] LABORATORY Sodium 138 135 - [...] Chloride 96 (L) 98 - 107 mmol/L [facility] LABORATORY CO2 29 22 - 31 mmol/L [facility] LABORATORY Anion Gap 13 5 - 15 mmol/L [facility] LABORATORY Calcium 8.3 (L) 8.5 - 10.5 mg/dL [facility] LABORATORY Estimated GFR 45 (L) >=60 [facility] LABORATORY Comment: The reported eGFR should be multiplied b y 1.2 for patients. The MDRD is not an appropriate measure o f renal function for patients with body mass extremes or in patients with acute kidney failure. http://[employer]/DHnkdep http://[employer]/DHMCnkf Specimen Anatomical Collection Method Collection Time Receive d Time (Source) Location / / Volume Laterality Blood specimen 08/09/2017 1:10 AM 018 1:19 (specimen) EST AM EST Resulting Agency Comment Spec In Lab Yonathan Smtih MD CHEMISTRY ORDERABLES Performing Organization Address City/Va Hospital/ZIP [place] [address] POCT Glucose (08/09/2017 12:05 AM EST) athologist Signature POC Glucose 128 65 - 199 [facility] mg/dL [facility] LABORATORY Comment: Supplemental ranges: <140 mg/dL before meals <180 mg/dL all other times of the day Specimen Anatomical Collection Method Collection Time Receive d Time (Source) Location / / Volume Laterality Blood specimen 08/09/2017 12:05 8 (specimen) AM EST 12:05 AM EST Yonathan Smith MD POINT OF CARE TEST ORDERABLE S Performing Organization Address City/Va Hospital/[place] [address] (ABNORMAL) POCT Glucose (08/08/2017 7:36 PM EST) athologist Signature POC Glucose 215 (H) 65 - 199 [facility] mg/dL [facility] LABORATORY Comment: Supplemental ranges: <140 mg/dL before meals <180 mg/dL all other times of the day Specimen Anatomical Collection Method Collection Time Receive d Time (Source) Location / / Volume Laterality Blood specimen 08/08/2017 7:36 PM 018 7:36 (specimen) EST PM EST Yonathan Smith MD POINT OF CARE TEST ORDERABLE S Performing Organization Address City/Va Hospital/[place] [address] (ABNORMAL) POCT Glucose (08/08/2017 6:23 PM EST) athologist Signature POC Glucose 216 (H) 65 - 199 [facility] RYAN mg/dL [facility] LABORATORY Comment: Supplemental ranges: <140 mg/dL before meals <180 mg/dL all other times of the day Specimen Anatomical Collection Method Collection Time Receive d Time (Source) Location / / Volume Laterality Blood specimen 08/08/2017 6:23 PM 018 6:23 (specimen) EST PM EST Yonathan Smith MD POINT OF CARE TEST ORDERABLE S Performing Organization Address City/Va Hospital/[place] [address] (ABNORMAL) APTT (08/08/2017 6:00 PM EST) athologist Signature PTT 97 (H) 25 - 35 sec [facility] LABORATORY Comment: The recommended therapeutic range for fu ll dose, unfractionated heparin at [facility] is 80 ? 114 seconds. The use [...] Smith MD HEMATOLOGY ORDERABLES Performing Organization Address City/Va Hospital/[place] [address] POCT Glucose (08/08/2017 4:42 PM EST) athologist Signature POC Glucose 78 65 - 199 [facility] mg/dL [facility] LABORATORY Comment: Supplemental ranges: <140 mg/dL before meals <180 mg/dL all other times of the day Specimen Anatomical Collection Method Collection Time Receive d Time (Source) Location / / Volume Laterality Blood specimen 08/08/2017 4:42 PM 018 4:42 (specimen) EST PM EST Yonathan Smith MD POINT OF CARE TEST ORDERABLE S Performing Organization Address City/State/Z[place] [address] (ABNORMAL) POCT Glucose (08/08/2017 4:01 PM EST) athologist Signature POC Glucose 58 (L) 65 - 199 [facility] mg/dL [facility] LABORATORY Comment: Supplemental ranges: <140 mg/dL before meals <180 mg/dL all other times of the day Specimen Anatomical Collection Method Collection Time Receive d Time (Source) Location / / Volume Laterality Blood specimen 08/08/2017 4:01 PM 018 4:01 (specimen) EST PM EST Yonathan Smith MD POINT OF CARE TEST ORDERABLE S Performing Organization Address City/State/ZIP Code Phon e Number [address] POCT Glucose (08/08/2017 11:51 AM EST) athologist Signature POC Glucose 90 65 - 199 [facility] mg/dL [facility] LABORATORY Comment: Supplemental ranges: <140 mg/dL before meals <180 mg/dL all other times of the day Specimen Anatomical Collection Method Collection Time Receive d Time (Source) Location / / Volume Laterality Blood specimen 08/08/2017 11:51 8 (specimen) AM EST 11:51 AM EST Yonathan Smith MD POINT OF CARE TEST ORDERABLE S Performing Organization Address City/State/[place] [address] (ABNORMAL) APTT (08/08/2017 10:27 AM EST) athologist Signature PTT 64 (H) 25 - 35 sec [facility] LABORATORY Comment: The recommended therapeutic range for fu ll dose, unfractionated heparin at [facility] is 80 ? 114 seconds. The use [...] Organization Address City/State/ZIP Code Phon e Number [address] POCT Glucose (08/08/2017 8:02 AM EST) athologist Signature POC Glucose 178 65 - 199 [facility] mg/dL [facility] LABORATORY Comment: Supplemental ranges: <140 mg/dL before meals <180 mg/dL all other times of the day Specimen Anatomical Collection Method Collection Time Receive d Time (Source) Location / / Volume Laterality Blood specimen 08/08/2017 8:02 AM 018 8:02 (specimen) EST AM EST Yonathan Smith MD POINT OF CARE TEST ORDERABLE S Performing Organization Address City/Va Hospital/[facility] Phon e Number [address] (ABNORMAL) APTT (08/08/2017 4:51 AM EST) athologist Signature PTT >160 25 - 35 [facility] (Critical) sec [facility] LABORATORY Comment: Called by: HOWARD, Read back by: Melba Jaramillo, Date/Time:08/08/17 05:43. The recommended therapeutic range for fu ll dose, unfractionated heparin at [facility] is 80 ? 114 seconds. The use [...] Smith MD HEMATOLOGY ORDERABLES Performing Organization Address City/Va Hospital/ZIP Code Phon e Number [address] (ABNORMAL) Differential, Automated (08/08/2017 4:51 AM EST) Patholo gist Method Time Signature Neutrophils % 77.9 % [facility] LABORATORY Neutr Abs (ANC) 8.17 (H) 1.70 - [facility] 6.10 [facility] x10(3)/[facility] LABORATORY Lymphocytes % 10.3 % [facility] LABORATORY Lymphocytes Abs 1.1 0.9 - 3.2 [facility] x10(3)/[facility] LABORATORY Monocytes % 7.0 % [facility] LABORATORY Monocyte Abs 0.7 0.3 - 0.9 [facility] x10(3)/[facility] LABORATORY Eosinophils % 3.6 % [facility] LABORATORY Eosinophils Abs 0.4 0.0 - 0.4 [facility] x10(3)/[facility] LABORATORY Basophils % 0.5 % [facility] LABORATORY Basophils Abs 0.0 0.0 - 0.1 [facility] x10(3)/[facility] LABORATORY Immature Gran % 0.70 % [facility] [...] Gran Abs 0.07 (H) 0.00 - 0.04 x10(3)/[facility] LABORATORY Specimen Anatomical Collection Method Collection Time Receive d Time (Source) Location / / Volume Laterality Blood specimen 08/08/2017 4:51 AM 018 5:14 (specimen) EST AM EST Resulting Agency Comment Spec In Lab Yonathan Smith MD HEMATOLOGY ORDERABLES Performing Organization Address City/State/Z[place] [address] (ABNORMAL) Hemogram (08/08/2017 4:51 AM EST) Analysis Performed At Patho logist Time Signature WBC 10.5 (H) 4.0 - 9.5 [facility] x10(3)/[facility] LABORATORY RBC 3.27 (L) 4.58 - [facility] 5.54 [facility] x10(6)/[facility] LABORATORY Hemoglobin 9.3 (L) 13.7 - [facility] 16.5 gm/dL [facility] LABORATORY Hematocrit 30.3 (L) 40.5 - [facility] 48.5 % [facility] LABORATORY MCV 92.7 82.9 - [facility] 93.1 [facility] LABORATORY MCH 28.4 27.5 - BARBARA RYAN 32.1 pg [facility] LABORATORY MCHC 30.7 (L) 32.0 - [facility] 35.7 gm/dL [facility] LABORATORY Platelets 252 145 - 357 [facility] x10(3)/[facility] LABORATORY RDWSD 54.6 (H) 36.0 - [facility] 45.0 [facility] LABORATORY RDWCV 16.2 (H) 11.4 - [facility] 13.8 % [facility] LABORATORY MPV 9.1 7.6 - 12.9 [facility] LABORATORY nRBC % Auto 0.0 % [facility] LABORATORY nRBC Abs Auto 0.000 0.000 - [facility] 0.000 [facility] x10(3)/[facility] LABORATORY Specimen Anatomical Collection Method Collection Time Receive d Time (Source) Location / / Volume Laterality Blood specimen 08/08/2017 4:51 AM 018 5:14 (specimen) EST AM EST Resulting Agency Comment Spec In Lab Yonathan Smith MD HEMATOLOGY ORDERABLES Performing Organization Address City/State/Z[place] [address] (ABNORMAL) Prothrombin Time (08/08/2017 4:51 AM EST) P athologist Signature PT 18.1 (H) 11.8 - 14.0 [facility] LABORATORY INR 1.5 (H) 0.9 - 1.1 [facility] LABORATORY Comment: An INR [...] Organization Address City/State/ZIP [place] [address] (ABNORMAL) Basic Metabolic Panel (non-fasting) (08/08/2017 4:51 AM EST) athologist Signature Glucose Lvl 229 (H) 65 - 199 [facility] mg/dL [facility] LABORATORY Comment: Diabetes: >=200 mg/dL plus symp toms BUN 35 (H) 10 - 20 mg/dL [facility] LABORATORY Creatinine 1.57 (H) 0.80 - 1.50 mg/dL [facility] LABORATORY Sodium 136 135 - 145 mmol/L [facility] [...] Chloride 94 (L) 98 - 107 mmol/L [facility] LABORATORY CO2 25 22 - 31 mmol/L [facility] LABORATORY Anion Gap 17 (H) 5 - 15 mmol/L [facility] LABORATORY Calcium 7.9 (L) 8.5 - 10.5 mg/dL [facility] LABORATORY Estimated GFR 44 (L) >=60 [facility] LABORATORY Comment: The reported eGFR should be multiplied b y 1.2 for patients. The MDRD is not an appropriate measure o f renal function for patients with body mass extremes or in patients with acute kidney failure. http://[employer]/DHnkdep http://[employer]/[facility] Specimen Anatomical Collection Method Collection Time Receive d Time (Source) Location / / Volume Laterality Blood specimen 08/08/2017 4:51 AM 018 5:14 (specimen) EST AM EST Resulting Agency Comment Spec In Lab Yonathan Smith MD CHEMISTRY ORDERABLES Performing Organization Address City/Va Hospital/ZIP Code Phon e Number [address] POCT Glucose (08/08/2017 4:20 AM EST) athologist Signature POC Glucose 193 65 - 199 [facility] mg/dL [facility] LABORATORY Comment: Supplemental ranges: <140 mg/dL before meals <180 mg/dL all other times of the day Specimen Anatomical Collection Method Collection Time Receive d Time (Source) Location / / Volume Laterality Blood specimen 08/08/2017 4:20 AM 018 4:20 (specimen) EST AM EST Yonathan Smith MD POINT OF CARE TEST ORDERABLE S Performing Organization Address City/Va Hospital/ZIP Code Phon e Number [address] POCT Glucose (08/07/2017 11:11 PM EST) athologist Signature POC Glucose 124 65 - 199 [facility] mg/dL [facility] LABORATORY Comment: Supplemental ranges: <140 mg/dL before meals <180 mg/dL all other times of the day Specimen Anatomical Collection Method Collection Time Receive d Time (Source) Location / / Volume Laterality Blood specimen 08/07/2017 11:11 8 (specimen) PM EST 11:11 PM EST Yonathan Smith MD POINT OF CARE TEST ORDERABLE S Performing Organization Address City/Va Hospital/ZIP Code Phon e Number [address] (ABNORMAL) APTT (08/07/2017 10:18 PM EST) athologist Signature PTT 114 (H) 25 - 35 sec [facility] LABORATORY Comment: The recommended therapeutic range for fu ll dose, unfractionated heparin at [facility] is 80 ? 114 seconds. The use [...] Organization Address City/State/ZIP Code Phon e Number [address] POCT Glucose (08/07/2017 8:10 PM EST) athologist Signature POC Glucose 140 65 - 199 [facility] mg/dL [facility] LABORATORY Comment: Supplemental ranges: <140 mg/dL before meals <180 mg/dL all other times of the day Specimen Anatomical Collection Method Collection Time Receive d Time (Source) Location / / Volume Laterality Blood specimen 08/07/2017 8:10 PM 018 8:10 (specimen) EST PM EST Yonathan Smith MD POINT OF CARE TEST ORDERABLE S Performing Organization Address City/Va Hospital/ZIP Code Phon e Number [address] POCT Glucose (08/07/2017 5:27 PM EST) athologist Signature POC Glucose 187 65 - 199 [facility] mg/dL [facility] LABORATORY Comment: Supplemental ranges: <140 mg/dL before meals <180 mg/dL all other times of the day Specimen Anatomical Collection Method Collection Time Receive d Time (Source) Location / / Volume Laterality Blood specimen 08/07/2017 5:27 PM 018 5:27 (specimen) EST PM EST Yonathan Smith MD POINT OF CARE TEST ORDERABLE S Performing Organization Address City/Va Hospital/ZIP Code Phon e Number [address] POCT Glucose (08/07/2017 3:29 PM EST) athologist Signature POC Glucose 86 65 - 199 [facility] mg/dL [facility] LABORATORY Comment: Supplemental ranges: <140 mg/dL before meals <180 mg/dL all other times of the day Specimen Anatomical Collection Method Collection Time Receive d Time (Source) Location / / Volume Laterality Blood specimen 08/07/2017 3:29 PM 018 3:29 (specimen) EST PM EST Yonathan Smith MD POINT OF CARE TEST ORDERABLE S Performing Organization Address City/Va Hospital/[place] [address] (ABNORMAL) APTT (08/07/2017 2:50 PM EST) athologist Signature PTT 60 (H) 25 - 35 sec [facility] LABOR[facility]ORY Comment: The recommended therapeutic range for fu ll dose, unfractionated heparin at [facility] is 80 ? 114 seconds. The use [...] Smith MD HEMATOLOGY ORDERABLES Performing Organization Address City/Va Hospital/[place] [address] (ABNORMAL) POCT Glucose (08/07/2017 2:23 PM EST) athologist Signature POC Glucose 55 (L) 65 - 199 [facility] mg/dL [facility] LABORATORY Comment: Supplemental ranges: <140 mg/dL before meals <180 mg/dL all other times of the day Specimen Anatomical Collection Method Collection Time Receive d Time (Source) Location / / Volume Laterality Blood specimen 08/07/2017 2:23 PM 018 2:23 (specimen) EST PM EST Yonathan Smith MD POINT OF CARE TEST ORDERABLE S Performing Organization Address City/Va Hospital/[place]IP [place] [address] POCT Glucose (08/07/2017 12:08 PM EST) P athologist Signature POC Glucose 77 65 - 199 [facility] mg/dL [facility] Comment: Supplemental ranges: <140 mg/dL before meals <180 mg/dL all other times of the day Specimen Anatomical Collection Method Collection Time Receive d Time (Source) Location / / Volume Laterality Blood specimen 08/07/2017 12:08 8 (specimen) PM EST 12:08 PM EST Yonathan Smith MD POINT OF CARE TEST ORDERABLE S Performing Organization Address City/State/[place] [address] (ABNORMAL) Differential, Automated (08/07/2017 7:30 AM EST) Patholo gist Method Time Signature Neutrophils % 73.8 % [facility] LAB[facility] Neutr Abs (ANC) 7.17 (H) 1.70 - [facility] 6.10 [facility] x10(3)/[facility] LABORATORY Lymphocytes % 12.2 % [facility] Lymphocytes Abs 1.2 0.9 - 3.2 [facility] x10(3)/[facility] LABORATORY Monocytes % 9.0 % [facility] Monocyte Abs 0.9 0.3 - 0.9 [facility] x10(3)/[facility] LABORATORY Eosinophils % 3.9 % [facility] Eosinophils Abs 0.4 0.0 - 0.4 [facility] x10(3)/[facility] LABORATORY Basophils % 0.6 % [facility] Basophils Abs 0.1 0.0 - 0.1 [facility] x10(3)/[facility] LABORATORY Immature Gran % 0.50 % [facility] Comment: Immature [...] Organization Address City/State/ZIP [place] [address] (ABNORMAL) Hemogram (08/07/2017 7:30 AM EST) Analysis Performed At Patho logist Time Signature WBC 9.7 (H) 4.0 - 9.5 [facility] x10(3)/[facility] LABORATORY RBC 3.54 (L) 4.58 - [facility] 5.54 [facility] x10(6)/[facility] LABORATORY Hemoglobin 9.9 (L) 13.7 - [facility] 16.5 gm/dL [facility] Hematocrit 32.3 (L) 40.5 - [facility] 48.5 % [facility] LABORATORY MCV 91.2 82.9 - [facility] 93.1 [facility] LABORATORY MCH 28.0 27.5 - [facility] 32.1 pg [facility] LAB[facility]ATORY MCHC 30.7 (L) 32.0 - [facility] 35.7 gm/dL [facility] Platelets 312 145 - 357 [facility] x10(3)/[facility] LABORATORY RDWSD 53.2 (H) 36.0 - [facility] 45.0 [facility] LABORATORY RDWCV 16.0 (H) 11.4 - [facility] 13.8 % [facility] LABORATORY MPV 8.9 7.6 - 12.9 [facility] LABORATORY nRBC % Auto 0.0 % [facility] nRBC Abs Auto 0.000 0.000 - [facility] 0.000 [facility] x10(3)/[facility] LABORATORY Specimen Anatomical Collection Method Collection Time Receive d Time (Source) Location / / Volume Laterality Blood specimen 08/07/2017 7:30 AM 018 7:45 (specimen) EST AM EST Resulting Agency Comment Spec In Lab Yonathan Smith MD HEMATOLOGY ORDERABLES Performing Organization Address City/Va Hospital/ZIP [place] [address] (ABNORMAL) Basic Metabolic Panel (non-fasting) (08/07/2017 7:30 AM EST) athologist Signature Glucose Lvl 80 65 - 199 [facility] mg/dL [facility] Comment: Diabetes: >=200 mg/dL plus symp toms BUN 31 (H) 10 - 20 mg/dL [facility] LABORATORY Creatinine 1.22 0.80 - 1.50 mg/dL [facility] estions. Chloride 99 98 - 107 mmol/L [facility] CO2 29 22 - 31 mmol/L [facility] Anion Gap 12 5 - 15 mmol/L [facility] LAB[facility] Calcium 8.5 8.5 - 10.5 mg/dL [facility] LABORATORY Estimated GFR 59 (L) >=60 [facility] Comment: The reported eGFR should be multiplied b y 1.2 for patients. The MDRD is not an appropriate measure o f renal function for patients with body mass extremes or in patients with acute kidney failure. http://GrexIt.[employer]/DHnkdep http://GrexIt.[employer]/DHMCnkf Specimen Anatomical Collection Method Collection Time Receive d Time (Source) Location / / Volume Laterality Blood specimen 08/07/2017 7:30 AM 018 7:45 (specimen) EST AM EST Resulting Agency Comment Spec In Lab Yonathan Smith MD CHEMISTRY ORDERABLES Performing Organization Address City/Va Hospital/ZIP Code Phon e Number [address] POCT Glucose (08/07/2017 7:27 AM EST) P athologist Signature POC Glucose 81 65 - 199 [facility] mg/dL [facility] Comment: Supplemental ranges: <140 mg/dL before meals <180 mg/dL all other times of the day Specimen Anatomical Collection Method Collection Time Receive d Time (Source) Location / / Volume Laterality Blood specimen 08/07/2017 7:27 AM 018 7:27 (specimen) EST AM EST Yonathan Smith MD POINT OF CARE TEST ORDERABLE S Performing Organization Address City/State/ZIP Code Phon e Number [address] APTT (08/07/2017 7:04 AM EST) athologist Signature PTT 34 25 - 35 sec [facility] Comment: The recommended therapeutic range for fu ll dose, unfractionated heparin at [facility] is 80 ? 114 seconds. The use [...] Organization Address City/State/[place] [address] (ABNORMAL) Prothrombin Time (08/07/2017 7:04 AM EST) athologist Signature PT 17.3 (H) 11.8 - 14.0 [facility] LABORATORY INR 1.4 (H) 0.9 - 1.1 [facility] Comment: An INR [...] Organization Address City/State/ZIP Code Phon e Number [address] POCT Glucose (08/07/2017 4:03 AM EST) athologist Signature POC Glucose 93 65 - 199 [facility] mg/dL [facility] Comment: Supplemental ranges: <140 mg/dL before meals <180 mg/dL all other times of the day Specimen Anatomical Collection Method Collection Time Receive d Time (Source) Location / / Volume Laterality Blood specimen 08/07/2017 4:03 AM 018 4:03 (specimen) EST AM EST Yonathan Smith MD POINT OF CARE TEST ORDERABLE S Performing Organization Address City/Va Hospital/ZIP [place] [address] POCT Glucose (08/07/2017 12:04 AM EST) athologist Signature POC Glucose 107 65 - 199 [facility] mg/dL [facility] Comment: Supplemental ranges: <140 mg/dL before meals <180 mg/dL all other times of the day Specimen Anatomical Collection Method Collection Time Receive d Time (Source) Location / / Volume Laterality Blood specimen 08/07/2017 12:04 8 (specimen) AM EST 12:04 AM EST Yonathan Smith MD POINT OF CARE TEST ORDERABLE S Performing Organization Address City/Va Hospital/ZIP Code Phon e Number [address] POCT Glucose (08/06/2017 7:56 PM EST) athologist Signature POC Glucose 178 65 - 199 [facility] mg/dL [facility] Comment: Supplemental ranges: <140 mg/dL before meals <180 mg/dL all other times of the day Specimen Anatomical Collection Method Collection Time Receive d Time (Source) Location / / Volume Laterality Blood specimen 08/06/2017 7:56 PM 018 7:56 (specimen) EST PM EST Yonathan Smith MD POINT OF CARE TEST ORDERABLE S Performing Organization Address City/State/ZIP [place] [address] TcPO2 (08/06/2017 2:32 PM EST) Component Value Ref Test Analysis Performed At [facility] gist Range Method Time Signature VB Text Department: Vascular Surgery Lab VASCUBASE Report Patient: [id number] (GREGORY HOANG) CPT: [id number] ICD10: I99.8 Referring Physician: YONATHAN SMITH ?? [...]
Routine documented in this encounter Care Teams Language Path Relationship Specialty Start Date End Date Lovely Vicente MD PCP - General 04/16/[address] [place] [address] documented as of this encounter
--- OUTSIDE RECORDS SUMMARY | 2022-02-16 08:17 | XMS_ITS | Encounter Summary ---
:1945 [place] [address] Care Team Providers Name Role Phone Lovely Vicente MD Primary Care Provider Encounter Details Date Type Department Care Team Description 07/29/2017 Hospital Encounter Vascular Lab at Critic monica Huber lower limb [facility] [place] [id number] Social History Tobacco Use Types Packs/Day Years [...] [facility] [place], [place] [address] (Wo rk) 03/26/2022 Office Visit Cardiology Vitaliy Nobles MD [facility] CARDIOLOGY [place], [place] [address] (Wo rk) documented as of this encounter Visit Diagnoses Diagnosis Critical lower limb ischemia Unspecified circulatory system disorder documented in this encounter Care Teams Clinical Account Manager Relationship Specialty Start Date End Date Lovely Vicente MD PCP - General 04/16/[address] [place] [address] [facility] [address] [place] [address] documented as of this encounter
--- OUTSIDE RECORDS SUMMARY | 2022-02-16 08:17 | XMS_ITS | Encounter Summary ---
:1945 Author Organization [facility] [place] [address] Care Team Providers Name Role Phone Lovely Vicente MD Primary Care Provider Reason for Visit Auth/Cert Specialty Diagnoses / Procedures Referred By Contact Refer red To Contact Diagnoses Critical lower limb ischemia CELLULITIS RT FOOT Procedures EMERGENCY Referral ID Status Reason Start Date Expiration Date Visits Requ ested Visits Authorized [id number] 1 1 Encounter Details Date Type Department Care Team Description 08/06/2017 Clinical Support Same Day at [facility] Ischemia of foot [facility] [place] [address] Social History Tobacco Use Types Packs/Day [...] noother symptoms except severe right foot pain. [facility] clinic called as pt on route [...] [facility] Cardiology Dept [place], [place] [address] (Wo rk) 03/26/2022 Office Visit Cardiology Vitaliy Nobles MD [facility] CARDIOLOGY [place], [place] [address] (Wo rk) documented as of [...] 444 ms MUSE SYSTEM (Bezet) Calculated P [place] 44 degrees MUSE SYSTEM Calculated R [place] -31 degrees MUSE SYSTEM Calculated T [place] 106 degrees MUSE SYSTEM INTERPRETATION Normal sinus [...] disorder documented in this encounter Care Teams Affiliate Manager Relationship Specialty Start Date End Date Lovely Vicente MD PCP - General 04/16/[address] [place] [address] documented as of this encounter
--- OUTSIDE RECORDS SUMMARY | 2022-02-16 08:17 | XMS_ITS | Encounter Summary ---
:1945 Author Organization [facility] Address [facility] [place] [address] Care Team Providers Name Role Phone Lovely Vicente MD Primary Care Provider Reason for Visit Auth/Cert Specialty Diagnoses / Procedures Referred By Contact Refer red To Contact Diagnoses Critical lower limb ischemia CELLULITIS RT FOOT Procedures EMERGENCY Referral ID Status Reason Start Date Expiration Date Visits Requ ested Visits Authorized [id number] 1 1 Encounter Details Date Type Department Care Team Description 08/04/2017 Laboratory Lab 3L [place] Cardiomyopathy, unspecified type; Appointment [facility] Systolic congestive heart failure, unspecified congestive heart failure chronicity; Hospital Coronary artery rupture; [facility] Ischemic cardiomyopathy; Drive Atherosclerosis of [place] co ronary artery, angina presence unspecified, unspecified whether [place] or transplanted heart; [place], [place] Essential hyper tension, malignant; [id number] 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 PROTHROMBIN TIME Routine 08/04/2017 12:55 Coronary artery Resu lts for this PM EST rupture procedure are in Ischemic the results cardiomyopathy section. Atherosclerosis of [place] coronary artery, angina presence unspecified, unspecified whether [place] or transplanted heart URIC ACID Routine 08/04/2017 [...] with the results diabetic section. nephropathy, unspecified shelter insulin use status Essential hypertension, malignant COMPREHENSIVE Routine 08/04/2017 12:55 Essential Results fo r this METABOLIC PANEL PM EST hypertension, procedure a re in (NON-FASTING) malignant the results section. documented in this encounter Results Uric acid (08/04/2017 12:55 PM EST) athologist Signature Uric Acid 7.1 3.5 - 8.5 [facility] mg/dL [facility]ORATORY Specimen Anatomical Collection Method Collection Time Receive d Time (Source) Location / / Volume Laterality Blood specimen 08/04/2017 12:55 8 1:01 (specimen) PM EST PM EST Resulting Agency Comment Spec In Lab Lovely Vicente MD CHEMISTRY ORDERABLES Performing Organization Address City/State/ZIP [place] [address] (ABNORMAL) Hemogram (08/04/2017 12:55 PM EST) Analysis Performed At Patho logist Time Signature WBC 15.8 (H) 4.0 - 9.5 [facility] x10(3)/[facility] LABORATORY RBC 3.48 (L) 4.58 - [facility] 5.54 [facility] x10(6)/[facility] LABORATORY Hemoglobin 9.9 (L) 13.7 - [facility] 16.5 gm/dL [facility] Hematocrit 31.4 (L) 40.5 - [facility] 48.5 % [facility] MCV 90.2 82.9 - [facility] 93.1 [facility] LABORATORY MCH 28.4 27.5 - [place] [facility] 32.1 pg [facility]AT[facility] MCHC 31.5 (L) 32.0 - [facility] 35.7 gm/dL [facility] Platelets 310 145 - 357 [facility] x10(3)/[facility] LABORATORY RDWSD 51.8 (H) 36.0 - [facility] 45.0 [facility] LABORATORY RDWCV 15.8 (H) 11.4 - [facility] 13.8 % [facility] LABORATORY MPV 8.9 7.6 - 12.9 [facility] LABORATORY nRBC % Auto 0.0 % [facility] LABORATORY nRBC Abs Auto 0.000 0.000 - [facility] 0.000 [facility] x10(3)/[facility] LABORATORY Specimen Anatomical Collection Method Collection Time Receive d Time (Source) Location / / Volume Laterality Blood specimen 08/04/2017 12:55 8 1:01 (specimen) PM EST PM EST Resulting Agency Comment Spec In Lab Lovely Vicente MD HEMATOLOGY ORDERABLES Performing Organization Address City/State/ZIP [place] [address] (ABNORMAL) Comprehensive metabolic panel (non-fasting) (08/04/2017 12:55 PM EST) P athologist Signature Glucose Lvl 208 (H) 65 - 199 [facility] mg/dL [facility] Comment: Diabetes: >=200 mg/dL plus symp toms BUN 32 (H) 10 - 20 mg/dL [facility] LABORATORY Creatinine 1.58 (H) 0.80 - 1.50 mg/dL [facility] [...] Chloride 97 (L) 98 - 107 mmol/L [facility] LABORATORY CO2 25 22 - 31 mmol/L [facility]ORATORY Anion Gap 14 5 - 15 mmol/L [facility] Calcium 8.6 8.5 - 10.5 mg/dL [facility] LABORATORY Total Protein 6.9 6.1 - 8.0 gm/dL [facility] LABORATORY Albumin 3.4 3.2 - 5.2 gm/dL [facility] LABORATORY AST 20 0 - 39 unit/L [facility] ALT 21 0 - 55 unit/L [facility] Alk Phos 93 40 - 120 unit/L [facility] LABORATORY Total Bilirubin 0.4 0.2 - 1.3 mg/dL [facility] LABORATORY Estimated GFR 43 (L) >=60 [facility] Comment: The reported eGFR should be multiplied b y 1.2 for patients. The MDRD is not an appropriate measure o f renal function for patients with body mass extremes or in patients with acute kidney failure. http://[employer].Exoprise/DHnkdep http://eucl3D/DHnkf Specimen Anatomical Collection Method Collection Time Receive d Time (Source) Location / / Volume Laterality Blood specimen 08/04/2017 12:55 8 1:01 (specimen) PM EST PM EST Resulting Agency Comment Spec In Lab Lovely Vicente MD CHEMISTRY ORDERABLES Performing Organization Address City/State/ZIP Code Phon e Number [place] [id number] HOS[address] LAB[address]ORY Drive (ABNORMAL) Hemoglobin A1c (08/04/2017 12:55 PM EST) Analysis Performed At Patho [facility] Time Signature Hemoglobin A1C 6.2 (H) 4.3 - 5.6 [facility] [...] Mellitus, Diabetes Care 2013; 36: Suppl. 1, D47-37 Est Avg Gluc See note mg/dL PORTER [...] into estimated average glucose values. ??Diabetes Care 2008:31(8):4151-9171. Specimen Anatomical Collection Method Collection Time Receive d Time (Source) Location / / Volume Laterality Blood specimen 08/04/2017 12:55 8 1:01 (specimen) PM EST PM EST Resulting Agency Comment Spec In Lab Lovely Vicente MD CHEMISTRY ORDERABLES Performing Organization Address [facility] [place] [address] (ABNORMAL) Prothrombin Time (08/04/2017 12:55 PM EST) P athologist Signature PT 35.4 (H) 11.8 - 14.0 [facility] LABORATORY INR 3.5 (H) 0.9 - 1.1 [facility] [...] Vicente MD HEMATOLOGY ORDERABLES Performing Organization Address [facility] [place] [address] (ABNORMAL) pro-Brain Natriuretic Peptide (08/04/2017 12:55 PM EST) P athologist Signature ProBNP 3,133 (H) <=125 [facility] pg/mL [facility] Specimen Anatomical Collection Method Collection Time Receive d Time (Source) Location / / Volume Laterality Blood specimen 08/04/2017 12:55 8 1:01 (specimen) PM EST PM EST Resulting Agency Comment Spec In Lab Danette Maxwell APRN CHEMISTRY ORDERABLES Performing Organization Address City/State/ZIP Code [place] [address] documented in this encounter Visit Diagnoses Diagnosis Cardiomyopathy, unspecified type Systolic congestive heart failure, unspe cified congestive heart failure chronicity Coronary artery rupture Acute myocardial infarction, unspecified site, episode of care unspecified Ischemic cardiomyopathy Other specified forms of chronic ischemi c heart disease Atherosclerosis of [place] coronary arter y, angina presence unspecified, unspecified whether [place] or transplanted heart Essential hypertension, malignant Diabetes mellitus due to underlying cond ition with diabetic nephropathy, unspecified shelter insulin use status documented in this encounter Care Teams Baking Powder Mixer Relationship Specialty Start Date End Date Lovely Vicente MD PCP - General 04/16/[address] [place] [address] documented as of this encounter
--- OUTSIDE RECORDS SUMMARY | 2022-02-16 08:18 | XMS_ITS | Encounter Summary ---
:1945 [place] [address] Care Team Providers Name Role Phone Lovely Vicente MD Primary Care Provider Reason for Visit Reason Onset Date Comments Questions 07/16/2017 fluid retention Encounter Details Date Type Department Care Team Description 07/16/2017 Telephone Cardiology at [facility] Martha Comer, Questions ([facility] RN retention ) [place] [address] Social History Tobacco Use Types Packs/Day [...] the direct number to the HF team ([phone]). She is aware of his appt with BOOM PUMP OPERATOR Hans on 07/21/17 and the need for labs prior to that visit. verbalized good understanding of the current POC. documented in this encounter Plan of Treatment Upcoming Encounters Date Type Specialty Care Team Description 02/19/2022 Laboratory Appointment Lab 02/19/2022 Office Visit Cardiology Liz Poole PA [facility] Dr Cardiology Dept [place], [place] [address] (Wo rk) 03/26/2022 Office Visit Cardiology Vitaliy Nobles MD [facility] CARDIOLOGY [place], [place] [address] (Wo rk) documented as of this encounter Visit Diagnoses Not on filedocumented in this encounter Care Teams Portable Canteen Operator Relationship Specialty Start Date End Date Lovely Vicente MD PCP - General 04/16/[address] [place] [address] [address] [place] [address] documented as of this encounter
--- OUTSIDE RECORDS SUMMARY | 2022-02-16 08:18 | XMS_ITS | Encounter Summary ---
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 Patient [...] SETUP performed by Manny Mcknight MD at [facility] MAIN OR ??? PRO CABG, ARTERIAL, SINGLE N/A 07/07/2017 @CABG, USING ARTERIAL GRAFT;SINGLE ARTERIAL GRAFT (WRVU 33.75) performed by Yuan Retana MD at [facility] MAIN OR ??? PRO CABG, ARTERY-VEIN, TWO N/A 07/07/2017 @CABG, TWO VENOUS GRAFTS & ARTERIAL GRAFT (WRVU 7.93) performed by Yuan Retana MD at [facility] MAIN OR ??? PRO COLONOSCOPY, REMFlash MOCK, SNARE 01/16/2014 COLONOSCOPY, POLYPECTOMY, REMOVAL LESION BY SNARE performed by Nohemi Jaimes MD at [facility] ENDOSCOPY ??? PRO ENDOSCOPY W/VIDEO-ASST VEIN HARVEST, CABG Right 07/07/2017 ENDOSCOPIC HARVEST VEIN(S) FOR CABG (WRVU 0.31) performed by Yuan Retana MD at [facility] MAIN OR ??? 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 Hank Zhang Vascular Surgery, PGY2 Pager #[phone] Associated attestation - Arik Clement MD - [...] [facility] Cardiology Dept [place], [place] [address] (Wo rk) 03/26/2022 Office Visit Cardiology Vitaliy Nobles MD [facility] CARDIOLOGY [place], [place] [address] (Wo rk) documented as of [...] Component Value Ref Test Analysis Performed At [facility] gist Range Method Time Signature VB Text Department: Vascular Surgery Lab VASCUBASE Report Patient: [id number] (GREGORY FATIMA) CPT: 52765 ICD10: I82.541 Referring Physician: TAMIKO JIMÉNEZ ?? [...] Signature POC Glucose 128 65 - 199 [facility] mg/dL [facility] Comment: Supplemental ranges: <140 mg/dL before meals <180 mg/dL all other times of the day Specimen Anatomical Collection Method Collection Time Receive d Time (Source) Location / / Volume Laterality Blood specimen 07/29/2017 2:28 PM 018 2:28 (specimen) EST PM EST Tamiko Jiménez MD POINT OF CARE TEST ORDERABLE S Performing Organization Address City/Special Care [facility]/ZIP Code Phon e Number [address] (ABNORMAL) D-Dimer, Quantitative (07/29/2017 2:15 PM EST) [facility] Method Time Signature D-Dimer, Quant 1,699 (H) 0 - 500 [facility] FEU ng/ml [facility] Comment: The D-Dimer assay is [...] Jiménez MD HEMATOLOGY ORDERABLES Performing Organization Address City/[facility] Care [facility]/[place] [address] (ABNORMAL) Differential, Automated (07/29/2017 2:15 PM EST) [facility] Method Time Signature Neutrophils % 82.5 % [facility] Neutr Abs (ANC) 10.21 (H) 1.70 - [facility] 6.10 [facility] x10(3)/[facility] L LABORATORY Lymphocytes % 7.1 % [facility] Lymphocytes Abs 0.9 0.9 - 3.2 [facility] x10(3)/[facility] LABORATORY Monocytes % 6.5 % [facility] Monocyte Abs 0.8 0.3 - 0.9 [facility] x10(3)/[facility] LABORATORY Eosinophils % 2.7 % [facility] Eosinophils Abs 0.3 0.0 - 0.4 [facility] x10(3)/[facility] LABORATORY Basophils % 0.6 % [facility] Basophils Abs 0.1 0.0 - 0.1 [facility] x10(3)/[facility] LABORATORY Immature Gran % 0.60 % [facility] [...] Organization Address City/State/[place] [address] (ABNORMAL) Hemogram (07/29/2017 2:15 PM EST) Analysis Performed At Patho logist Time Signature WBC 12.4 (H) 4.0 - 9.5 [facility] x10(3)/[facility] LABORATORY RBC 4.17 (L) 4.58 [facility] x10(6)/[facility] LABORATORY Hemoglobin 12.1 (L) 13.7 - [facility] 16.5 gm/dL [facility] Hematocrit 38.1 (L) 40.5 - [facility] 48.5 % [facility] MCV 91.4 82.9 - [facility] 93.1 [facility] LABORATORY MCH 29.0 27.5 - [facility] 32.1 pg [facility] MCHC 31.8 (L) 32.0 - [facility] 35.7 gm/dL [facility] Platelets 204 145 - 357 [facility] x10(3)/[facility] LABORATORY RDWSD 50.5 (H) 36.0 - [place]YAN 45.0 [facility] LABORATORY RDWCV 15.3 (H) 11.4 - [facility] 13.8 % [facility] LAB[facility]ATORY MPV 9.4 7.6 - 12.9 [facility] LABORATORY nRBC % Auto 0.0 % [facility] nRBC Abs Auto 0.000 0.000 - [facility] 0.000 [facility] x10(3)/[facility] LABORATORY Specimen Anatomical Collection Method Collection Time Receive d Time (Source) Location / / Volume Laterality Blood specimen 07/29/2017 2:15 PM 018 2:36 (specimen) EST PM EST Resulting Agency Comment Spec In Lab Tamiko Jiménez MD HEMATOLOGY ORDERABLES Performing Organization Address City/State/ZIP Code Phon e Number [address] (ABNORMAL) Prothrombin Time (07/29/2017 2:15 PM EST) P athologist Signature PT 24.4 (H) 11.8 - 14.0 [facility] LABORATORY INR 2.2 (H) 0.9 - 1.1 [facility] Comment: An INR [...] Organization Address City/State/ZIP Code Phon e Number [address] Arterial Duplex Leg, Unil (07/29/2017 11:50 AM EST) Component Value Ref Test Analysis Performed At Patholo gist Range Method Time Signature VB Text Department: Vascular Surgery Lab VASCUBASE Report Patient: [id number] (GREGORY FATIMA) CPT: 11849 ICD10: Z09;I97.610 Referring Physician: TAMIKO JIMÉNEZ ?? [...] Component Value Ref Test Analysis Performed At [facility] Method Time Signature VB Text Department: Vascular Surgery Lab VASCUBASE Report Patient: [id number] (GREGORY FATIMA) CPT: 05301 ICD10: I82.441 Referring Physician: TAMIKO JIMÉNEZ ?? [...] he calf. Notification: Marquis Pathak MD (pager #[phone]) was notif ied of the preliminary findings. [...] STAT documented in this encounter Care Teams Forest Economist Relationship Specialty Start Date End Date Lovely Vicente MD PCP - General 04/16/15 [facility] [address] [place] [address] documented as of this encounter
--- OUTSIDE RECORDS SUMMARY | 2022-02-16 08:18 | XMS_ITS | Encounter Summary ---
:1945 Author Organization [facility] [place] [address] Care Team Providers Name Role Phone Lovely Vicente MD Primary Care Provider Reason for Visit Reason Comments Foot Pain Auth/Cert Specialty Diagnoses / Procedures Referred By Contact Refer red To Contact Diagnoses Ischemic foot Procedures NAYE OBSVO Referral ID Status Reason Start Date Expiration Date Visits Requ ested Visits Authorized [id number] 1 1 Encounter Details Date Type Department Care Team Description 07/27/2017 Emergency 1 [facility] Lokesh Swenson MD [facility] [address] [place] [address] Femoral artery pseudo-aneurysm, right; [facility] Tam Bauman MD [facility] [place] [address] [place] [address] Social History Tobacco Use Types Packs/Day [...] Gregory Fatima Patient Age: 72 y.o. Language: St Helen[place] Race: White Ethnicity: Not nor Admit date: [...] please contact your inpatient physician through the [facility] Communication Professor . Issues after hours and on weekends will be handled by the Hospitalist staff on-call. Discharge Diagnoses (Hospital Problems) and Secondary Diagnoses (Chronic Problems): Active Hospital Problems Diagnosis ??? Ischemic foot ??? ASHD (arteriosclerotic heart disease) ??? Cardiomyopathy, ischemic ??? Gastroesophageal reflux disease ??? Critical lower limb ischemia ??? BPH (benign prostatic hyperplasia) ??? MARIA IVCTORIA (obstructive sleep apnea) on CPAP ??? Seborrheic [...] RLE critical limb ischemia, who presented to [facility] with worsening RLE pain. Pt post-op course after CABG was significant for paroxysmal Afib, and he was started on Coumadin given elevated VQME1VQQNL score. 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 He [...] in the last 7068 hours. Invalid input(s): [id number] Recent Labs 07/08/17 0400 07/07/17 0515 07/06/17 [...] of nonopacification; splenic infarcts not excluded. ?? JULAIN B/L LE 07/20/2017: ?? RIGHT: No significant [...] (it was low at 1.6 here at [facility]) 7. Use the tramadol if dilaudid or tylenol is not working 8. Stop taking the potassium supplement - your blood potassium level was elevated. Ask your doctors at future visits if this should be restarted. 9. Antibiotic for 5 days recommended by cardiothoracic surgery for chest wound drainage Follow-Up Appointments Vascular surgery as previously schedule Your Inpatient Doctor(s) at [facility]: CARLOS ALBERTO ROSALES MD General Instructions None Future Appointments and Orders Future Appointments Provider Department Dept Phone 07/30/2017 8:30 AM OSWALDO, THREE L Lab 3L [facility] [phone] 07/30/2017 9:40 AM Danette Maxwell APRN Cardiology at [place] [phone] 08/04/2017 1:00 PM Daniele Mooney [place] [facility] [place] [phone] 08/04/2017 2:15 PM Arik Clement MD Vascular Surgery at [place] [phone] 08/11/2017 10:00 AM [facility] ROOM 2 XRay at [place] [phone] Please go to Medical Terminologist Area 3T ([place] Location). 08/11/2017 11:00 AM Yuan Retana MD Cardiac Surgery at [place] [phone] 09/07/2017 3:00 PM LAB, THREE L Lab 3L [facility] [phone] 09/07/2017 4:00 PM Luz Prescott MD Endocrinology at [place] [phone] Discharge References/Attachments None documented in this encounter [...] (it was low at 1.6 here at [facility]) 3. Use the tramadol if dilaudid or tylenol is not working 4. Stop taking the potassium supplement - your blood potassium level was elevated. Ask your doctors at future visits if this should be restarted. 5. Antibiotic for 5 days recommended by cardiothoracic surgery for chest wound drainage Follow-Up Appointments Vascular surgery as previously schedule Your Inpatient Doctor(s) at [facility]: CARLOS ALBERTO ROSALES MD documented in this [...] Gas) No results found for: PHART, PO2ART, SHK4KGK Assessment/Plan: 72 y.o. male s/p CABG in [...] intervention: Education Nutrition Recommendations: Recommend continuation of [facility], CHO2 diet order Patient and denied need [...] Orders Diet Daily Healthy Menu Choices/Cardiac diet ([facility]-Diet) 60/ CHO counting level 2 Frequency: Effective Now Number of Occurrences: Until Specified Admit Weight: 83.92 kg Estimated body mass index is 28.13 kg/(m^2) as calculated from the following: Height as of this encounter: 172.7 cm (5' 8). Weight as of this encounter: 83.9 kg (185 lb). [place] body weight: 68.4 kg (150 lb 12.7 [...] RLE critical limb ischemia, who presented to [facility] with worsening RLE pain. Visited with patient [...] spent >30 minutes (Day of Discharge Code 62609) involved in the final examination of the [...] Melanoma ID: 72 y.o. Male presents to [facility] with persistent pain b/l lower extremities History of Present Illness: HPI 72 y.o. male with PMH ASCVD s/p CABG (07/07/17), MARIA VICTORIA on CPAP QHS, HTN, HLD, DM2, with recent hospitalization for RLE critical limb ischemia, who presented to [facility] with worsening RLE pain. Pt post-op course after CABG was significant for paroxysmal Afib, and he was started on Coumadin given elevated [id number] score. 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 He [...] SETUP performed by Manny Mcknight MD at [facility] MAIN OR ??? PRO CABG, ARTERIAL, SINGLE N/A 07/07/2017 @CABG, USING ARTERIAL GRAFT;SINGLE ARTERIAL GRAFT (WRVU 33.75) performed by Yuan Retana MD at [facility] MAIN OR ??? PRO CABG, ARTERY-VEIN, TWO N/A 07/07/2017 @CABG, TWO VENOUS GRAFTS & ARTERIAL GRAFT (WRVU 7.93) performed by Yuan Retana MD at [facility] MAIN OR ??? PRO COLONOSCOPY, REMV LESN, SNARE 01/16/2014 COLONOSCOPY, POLYPECTOMY, REMOVAL LESION BY SNARE performed by Nohemi Jaimes MD at [facility] ENDOSCOPY ??? PRO ENDOSCOPY W/VIDEO-ASST VEIN HARVEST, CABG Right 07/07/2017 ENDOSCOPIC HARVEST VEIN(S) FOR CABG (WRVU 0.31) performed by Yuan Retana MD at [facility] MA[facility] OR ??? PRO THYROIDECTOMY 03/28/2013 THYROIDECTOMY, TOTAL OR COMPLETE performed by Manny Mcknight MD at [facility] MA[facility] OR Prior To Admission Medications: [...] Procedure Component Value Units Date/Time Blood culture [[id number]] Collected: 07/09/1739 Lab Status: Final result Specimen: Blood from Arm, Right Updated: 07/14/17701 Blood Culture No growth at 5 days. Blood culture [[id number]] Collected: 07/09/170 Lab Status: Final result Specimen: [...] limb ischemia following CABG, who presented to [facility] ED from home with persistent B/L LE [...] continued Diet Daily Healthy Menu Choices/Cardiac diet ([facility]-Diet) 60/60/75 CHO counting level 2Cardiac, low salt, CHO 2 Discharge planning Pending improvement in pain control PT/OT/Speech PT ordered Lines/Access PIV Ocasio catheter No DVT/GI Prophylaxis Lovenox bridge to Coumadin, SCD. Code status Full Code Family PCP Lovely Vicente MD [phone] Attestation Please see my note for details [...] encounter Miscellaneous Notes Plan of Care - Gerlach-Joyce Damian, PT - 07/27/2017 3:26 PM EST [...] Anticipated Discharge Disposition: home with assist Pager: [phone] JOYCE KING, PT Inpatient Physical Therapy 2017 [...] patient's evaluation including the following functional test(s) [facility]. Current ability measures, co-morbidities and clinical judgement [...] a lovenox bridge. Mr. Fatima returns to [facility] ED tonight because of ongoing pain in [...] SETUP performed by Manny Mcknight MD at [facility] MA[facility] OR ??? PRO CABG, ARTERIAL, SINGLE N/A 07/07/2017 @CABG, USING ARTERIAL GRAFT;SINGLE ARTERIAL GRAFT (WRVU 33.75) performed by Yuan Retana MD at [facility] MA[facility] OR ??? PRO CABG, ARTERY-VEIN, TWO N/A 07/07/2017 @CABG, TWO VENOUS GRAFTS & ARTERIAL GRAFT (WRVU 7.93) performed by Yuan Retana MD at [facility] MA[facility] OR ??? PRO COLONOSCOPY, REMV LESN, SNARE 01/16/2014 COLONOSCOPY, POLYPECTOMY, REMOVAL LESION BY SNARE performed by Nohemi Jaimes MD at [facility] ENDOSCOPY ??? PRO ENDOSCOPY W/VIDEO-ASST VEIN HARVEST, CABG Right 07/07/2017 ENDOSCOPIC HARVEST VEIN(S) FOR CABG (WRVU 0.31) performed by Yuan Retana MD at [facility] MA[facility] OR ??? PRO THYROIDECTOMY 03/28/2013 THYROIDECTOMY, TOTAL OR COMPLETE performed by Manny Mcknight MD at [facility] MA[facility] OR MEDICATIONS: No current facility-administered [...] up in clinic 1-2 weeks after discharge. [facility] Vascular Surgery Plan of Care - Jazmín [...] Visit Cardiology Liz Poole PA [facility] er Cardiology Dept [place], [place] [address] (Wo rk) 03/26/2022 Office Visit Cardiology Vitaliy Nobles MD [facility] CARDIOLOGY [place], [place] [address] (Wo rk) documented as [...] section. TYPE AND SCREEN STAT 07/27/2017 12:53 ([facility]/SHANDA) AM EST BASIC METABOLIC PANEL STAT 07/27/2017 12:53 Re sults for this (NON-FASTING) AM EST procedure are in the results section. documented in this encounter Results POCT Glucose (07/27/2017 11:53 AM EST) P athologist Signature POC Glucose 175 65 - 199 [facility] mg/dL [facility] Comment: Supplemental ranges: <140 mg/dL before meals <180 mg/dL all other times of the day Specimen Anatomical Collection Method Collection Time Receive d Time (Source) Location / / Volume Laterality Blood specimen 07/27/2017 11:53 8 (specimen) AM EST 11:53 AM EST Tam Bauman MD POINT OF CARE TEST ORDERABLE S Performing Organization Address City/State/[place] [address] Arterial Duplex Leg, Unil (07/27/2017 7:40 AM EST) Component Value Ref Test Analysis Performed At Patholo gist Range Method Time Signature VB Text Department: Vascular Surgery Lab VASCUBASE Report Patient: [id number] (GREGORY FATIMA) CPT: 59236 ICD10: I97.610;I72.4;Z09 Referring Physician: TAM BAUMAN ?? [...] Bauman MD VASCULAR ORDERABLES Performing Organization Address City/[facility]/ZIP Code Phon e Number VASCUBASE POCT Glucose (07/27/2017 6:51 AM EST) P athologist Signature POC Glucose 96 65 - 199 [facility] mg/dL [facility] Comment: Supplemental ranges: <140 mg/dL before meals <180 mg/dL all other times of the day Specimen Anatomical Collection Method Collection Time Receive d Time (Source) Location / / Volume Laterality Blood specimen 07/27/2017 6:51 AM 018 6:51 (specimen) EST AM EST Tam Bauman MD POINT OF CARE TEST ORDERABLE S Performing Organization Address City/[facility]/ZIP [facility] Phon e Number [address] ABORH Recheck Status (07/27/2017 12:53 AM EST) Patholo gist Method Time Signature ABORH Type Completed [facility] LABORATORY Specimen Anatomical Collection Method Collection Time Receive d Time (Source) Location / / Volume Laterality Blood specimen 07/27/2017 12:53 8 (specimen) AM EST 12:58 AM EST Resulting Agency Comment Spec In Lab Angela Swenson MD BLOOD BANK ORDERABLES Performing Organization Address City/[facility]/ZIP Code Phon e Number [address] Gold Tube HOLD (07/27/2017 12:53 AM EST) P athologist Signature Gold Hold Sample in [facility] LABORATORY Specimen Anatomical Collection Method Collection Time Receive d Time (Source) Location / / Volume Laterality Blood specimen Venous Draw / 07/27/2017 12:53 07/27/19 18 1:01 (specimen) Unknown AM EST AM EST Angela Swenson MD CHEMISTRY ORDERABLES Performing Organization Address City/State/ZIP Code Phon e Number [place] [id number]OS[address] (ABNORMAL) Differential, Automated (07/27/2017 12:53 AM EST) [facility] Method Time Signature Neutrophils % 75.0 % [facility]OR[facility]ORY Neutr Abs (ANC) 11.30 (H) 1.70 - [facility] 6.10 [facility] x10(3)/[facility] LABORATORY Lymphocytes % 9.9 % [facility] Lymphocytes Abs 1.5 0.9 - 3.2 [facility] x10(3)/[facility] LABORATORY Monocytes % 8.6 % [facility] Monocyte Abs 1.3 (H) 0.3 - 0.9 [facility] x10(3)/[facility] LABORATORY Eosinophils % 4.8 % [facility] Eosinophils Abs 0.7 (H) 0.0 - 0.4 [facility] x10(3)/[facility] LABORATORY Basophils % 0.8 % [facility] Basophils Abs 0.1 0.0 - 0.1 [facility] x10(3)/[facility] LABORATORY Immature Gran % 0.90 % [facility] Comment: Immature granulocytes(IG's)percentage an d absolute count will include metamyelocytes, myelocytes, and promyelo cytes. Blood smears from CBCs yielding IG's will be scanned manually for concor dance. If this scan disagrees with the automated IG or if promyelocytes are not ed, a manual differential will be performed. Melisa Gran Abs 0.13 (H) 0.00 - 0.04 x10(3)/[facility] LABORATORY Specimen Anatomical Collection Method Collection Time Receive d Time (Source) Location / / Volume Laterality Blood specimen 07/27/2017 12:53 8 1:00 (specimen) AM EST AM EST Resulting Agency Comment Spec In Lab Angela Swenson MD HEMATOLOGY ORDERABLES Performing Organization Address City/State/ZIP Code Phon e Number [place] [id number]OS[address] (ABNORMAL) Hemogram (07/27/2017 12:53 AM EST) Analysis Performed At Patho logist Time Signature WBC 15.0 (H) 4.0 - 9.5 [facility] x10(3)/[facility] LABORATORY RBC 3.59 (L) 4.58 - [place] 5.54 [facility] x10(6)/[facility] LABORATORY Hemoglobin 10.3 (L) 13.7 - [facility] 16.5 gm/dL [facility] Hematocrit 32.6 (L) 40.5 [facility] 48.5 % [facility] MCV 90.8 82.9 [facility] 93.1 [facility] LABORATORY MCH 28.7 27.5 - [place] 32.1 pg [facility] MCHC 31.6 (L) 32.0 - [facility] 35.7 gm/dL [facility] Platelets 322 145 - 357 [facility] x10(3)/[facility] LABORATORY RDWSD 48.7 (H) 36.[address] - [facility] 45.0 [facility] LABORATORY RDWCV 14.7 (H) 11.4 - [facility] RYAN 13.8 % [facility] MPV 8.9 7.6 - 12.9 [facility] LABORATORY nRBC % Auto 0.0 % [facility] nRBC Abs Auto 0.000 0.000 - [place] 0.000 [facility] x10(3)/[facility] LABORATORY Specimen Anatomical Collection Method Collection Time Receive d Time (Source) Location / / Volume Laterality Blood specimen 07/27/2017 12:53 8 1:00 (specimen) AM EST AM EST Resulting Agency Comment Spec In Lab Angela Swenson MD HEMATOLOGY ORDERABLES Performing Organization Address City/State/[place] [address] Antibody screen (07/27/2017 12:53 AM EST) Patholo gist Method Time Signature Ab Screen Negative [facility] LABORATORY Expires at 07/30/2017 [place] [id number] on: [facility] Specimen Anatomical Collection Method Collection Time Receive d Time (Source) Location / / Volume Laterality Blood specimen 07/27/2017 12:53 8 (specimen) AM EST 12:58 AM EST Resulting Agency Comment Spec In Lab Angela Swenson MD BLOOD BANK ORDERABLES Performing Organization Address City/[facility]/[place] [address] ABO/Rh Typing (07/27/2017 12:53 AM EST) P athologist Signature ABORh Type O Pos [facility] Specimen Anatomical Collection Method Collection Time Receive d Time (Source) Location / / Volume Laterality Blood specimen 07/27/2017 12:53 8 (specimen) AM EST 12:58 AM EST Resulting Agency Comment Spec In Lab Angela Swenson MD BLOOD BANK ORDERABLES Performing Organization Address [facility] [place] [address] (ABNORMAL) Prothrombin Time (07/27/2017 12:53 AM EST) P athologist Signature PT 19.1 (H) 11.8 - 14.0 [facility] LABORATORY INR 1.6 (H) 0.9 - 1.1 [facility] Comment: An [...] Swenson MD HEMATOLOGY ORDERABLES Performing Organization Address City/[facility] [place] [address] (ABNORMAL) Basic Metabolic Panel (non-fasting) (07/27/2017 12:53 AM EST) P athologist Signature Glucose Lvl 95 65 - 199 [facility] mg/dL [facility] Comment: Diabetes: >=200 mg/dL plus symp toms BUN 37 (H) 10 - 20 mg/dL [facility] Creatinine 1.49 0.80 - 1.50 mg/dL [facility] Sodium 137 135 - 145 mmol/L [facility] Potassium 5.1 (H) 3.5 - 5.0 mmol/L [facility] Comment: Please note: ??Patients with WBC >100,00 0 may have falsely elevated Potassium levels. ??For accurate Potassium quantif ication in these patients send serum separator tube (gold top) for subsequent determinations. ??Contact the Clinical Chemistry Laboratory if there are any qu estions. Chloride 96 (L) 98 - 107 mmol/L [facility] CO2 28 22 - 31 mmol/L [facility] Anion Gap 13 5 - 15 mmol/L [facility] Calcium 8.6 8.5 - 10.5 mg/dL [facility] Estimated GFR 46 (L) >=60 [facility] Comment: The reported eGFR should be multiplied b y 1.2 for patients. The MDRD is not an appropriate measure o f renal function for patients with body mass extremes or in patients with acute kidney failure. 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
Routine documented in this encounter Care Teams Research Staff Member Relationship Specialty Start Date End Date Lovely Vicente MD PCP - General 04/16/[address] [place] [address] [address] [place] [address] documented as of this encounter
--- OUTSIDE RECORDS SUMMARY | 2022-02-16 08:18 | XMS_ITS | Encounter Summary ---
:1945 [place] [address] Care Team Providers Name Role Phone Lovely Vicente MD Primary Care Provider Reason for Visit Reason Comments Hospital Transfer cold foot post CABG Auth/Cert Specialty Diagnoses / Procedures Referred By Contact Refer red To Contact Diagnoses Critical lower limb ischemia Procedures NAYE IPI Referral ID Status Reason Start Date Expiration Date Visits Requ ested Visits Authorized [id number] 1 1 Encounter Details Date Type Department Care Team Description 07/20/2017 Hospital Encounter 4 Herminia Ibarra MD [facility] EMERGENCY [place] [address] [facility] Arik Clement MD [facility] [place]ASCULAR [place] [address] [place] [address] Social History Tobacco Use Types Packs/Day Years [...] home. Important Studies and Lab Data: Labs: [facility] Lab Results Component Value Date INR 1.5 [...] For any problems or questions please call [phone] ZELDA Smith, clinical nurse occupational medicine Nurse Clinician For issues on weeknights after 5pm and weekends please call [phone] and ask for the Vascular Fellow telecommunications repairer. General Instructions None Future Appointments and Orders Future Appointments Provider Department Dept Phone 08/04/2017 1:00 PM Daniele Mooney [place] [facility] [place] [phone] 08/04/2017 2:15 PM Arik Clement MD [facility] [place] [phone] 09/07/2017 3:00 PM MAYRA CHACON Lab [facility] [phone] 09/07/2017 4:00 PM Luz Prescott MD [facility]ocrinology [facility] [place] [phone] Future Orders Complete By Expires Arterial Duplex Leg, Unil [VAS32 Custom] 07/27/2017 (Approximate) 01/26/2018 Process Instructions: There is no in-house vascular engineer geophysical laboratory available on weeknights (5pm-8am), weekends, or holidays. IF THIS IS A REQUEST FOR AN EMERGENT STUDY DURING THOSE HOURS, please have the senior provider responsible for the patient page the Vascular Surgery Fellow/Senior Resident telecommunications repairer to discuss options. Scheduling Instructions: Questions: Indication for study/signs & symptoms: Right femoral PSA s/p cardiac cath Question to be answered: bloodflow to PSA Laterality: Right Is there a RIGHT LOWER EXTREMITY graft?: No Lower limb right segments: Common Femoral Is there a stent?: No At which location will this be performed?: [place] Referral to Home Health - at DISCHARGE [VNY9429 CPT(R)] As directed Process Instructions: Scheduling Instructions: Comments: DOCUMENTATION FOR VNA SERVICES (INCLUDING THOSE PATIENTS WITH MEDICARE COVERAGE REQUIRING HOME VNA SERVICES AND/OR HOSPICE SERVICES) PATIENT'S LOCATION: Gregory Fatima [address] [place] [address] [place] [phone] (home) Cell: Telephone Information: Shower Enclosure Installer's Name: self In discussion with the attending physician, it is certified that this patient is under their care and that they, or a Nurse Practitioner,Clinical Nurse specialist or Physician Infrastructure Tech who is working directly with them, had [...] CARE AGENCY: [facility] ([facility] [place] [facility]-is in [place]) PHONE: [phone] FAX: [phone] Start of care: 24- 48 hours FOR [...] patient'sPCP: Lovely Vicente MD [address] [facility] [place] / [place] [address] All VNA agencies which cover the area [...] For any problems or questions please call [phone] ZELDA Smith, clinical nurse occupational medicine Nurse Clinician For issues on weeknights after 5pm and weekends please call [phone] and ask for the Vascular Fellow telecommunications repairer. 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 A letter describing our affiliations was reviewed with them and theywere educated about their right to choose where referrals are placed. Patient requests referral to [facility]. PHONE: [phone] FAX: [phone]. Expected date of discharge: 07/20/2017 . Referral routed to the Loan Adviser for matching with agency/vendor and to provide any required information. 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 A letter describing our affiliations was reviewed with them and theywere educated about their right to choose where referrals are placed. Patient requests referral to [facility] ([facility] [place] [facility]- is in [facility] PHONE: [phone] FAX: [phone]. Expected date of discharge: 07/20/2017 . Referral routed to the Loan Adviser for matching with agency/vendor and to provide any required information. Katina Pulliam RNcardio tech Janneth Lee MD - 07/20/2017 7:29 AM [...] [facility] Functional Status/Social Hx: Social History [...] -ISS -pain control Discussed with Vascular Fellow telecommunications repairer. Chris Valadez MD PGY2 Pager [phone] documented in this encounter ED Notes Annita Reaves MD - 07/20/2017 3:15 PM EST Emergency Department Gregory Fatima is a 72 y.o. 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 History of Present Illness [...] 04/05/2013 Hospitalizations Within the Past 30 Days: [facility] 07/05/17 Anticipated Length Of Stay (If known): [...] Health/Prescription Coverage: Primary Insurance: MEDICARE Secondary Insurance: [employer] [facility] Prescription Coverage: See above Preferred Pharmacy: [facility] Other: N/A Primary Care Provider: Lovely Vicente MD [phone] Patient/Caregiver Goals of Treatment: Patient plans to return home when medically ready Potential Needs for Transition of Care: Rehab/SNF: N/A Home Health: [facility] ([facility] [place] [facility]-is in [place]) PHONE: [phone] FAX: [phone] DME: N/A Dialysis: N/A Community Resources: N/A Transportation: Patient family will transport Other: N/A Anticipated Barriers to Discharge/Special Considerations: None Plan: Patient plans to return home with home health services when medically ready A member of the Care Management team will continue to monitor progress, follow for continuity of care and assist with transition of care planning. Naty Pulliam RN Pager: [phone] ED Triage - Rayna Weir RN - 07/20/2017 12:28 AM EST Pt transferred from [place] for blue right foot and painful toes. [...] PA [facility] Cardiology Dept [place], [place] [address] (Wo ) 03/26/2022 Office Visit Cardiology Vitaliy Nobles MD [facility] CARDIOLOGY [place], [place] [address] ([place]o ) documented as of this encounter Procedures Procedure Name Priority Date/Time Associated Comments Diagnosis GAS CHARGER SCAN 09/02/2017 12:00 Res ults for this [...] TO LAB EST procedure are i n ([facility]) the results section. APTT STAT 07/20/2017 2:25 AM Results f or this EST procedure are i n the results section. PROTHROMBIN TIME STAT 07/20/2017 2:25 AM Resul ts for this EST procedure are i n the results section. BASIC METABOLIC PANEL STAT 07/20/2017 2:25 AM Results for this (NON-FASTING) EST procedure are in the results section. documented in this encounter Results SCAN DOC: GAS CHARGER (09/02/2017 12:00 AM EST) Narrative 09/02/2017 12:00 AM EST This result has an attachment that is no t available. Ordered by an unspecified provider. Scanning Provider MEDIA MGR SCAN EXT ORDR/RSLT POCT Glucose (07/20/2017 12:04 PM EST) P athologist Signature POC Glucose 189 65 - 199 [facility] mg/dL [facility] Comment: Supplemental ranges: <140 mg/dL before meals <180 mg/dL all other times of the day Specimen Anatomical Collection Method Collection Time Receive d Time (Source) Location / / Volume Laterality Blood specimen 07/20/2017 12:04 7 (specimen) PM EST 12:04 PM EST Arik Clement MD POINT OF CARE TEST ORDERABLE S Performing Organization Address City/State/ZIP Code Phon e Number [place] [id number] (ABNORMAL) Differential, Automated (07/20/2017 10:34 AM EST) [facility] Method Time Signature Neutrophils % 84.3 % [facility] Neutr Abs (ANC) 14.27 (H) 1.70 - [facility] 6.10 [facility] x10(3)/[facility] LABORATORY Lymphocytes % 5.6 % [facility] Lymphocytes Abs 1.0 0.9 - 3.2 [facility] x10(3)/[facility] LABORATORY Monocytes % 6.1 % [facility] Monocyte Abs 1.0 (H) 0.3 - 0.9 [facility] x10(3)/[facility] LABORATORY Eosinophils % 2.4 % [facility] Eosinophils Abs 0.4 0.0 - 0.4 [facility] x10(3)/[facility] LABORATORY Basophils % 0.5 % [facility] Basophils Abs 0.1 0.0 - 0.1 [facility] x10(3)/[facility] LABORATORY Immature Gran % 1.10 % [facility] Comment: Immature granulocytes(IG's)percentage an d absolute count will include metamyelocytes, myelocytes, and promyelo cytes. Blood smears from CBCs yielding IG's will be scanned manually for concor dance. If this scan disagrees with the automated IG or if promyelocytes are not ed, a manual differential will be performed. Melisa Gran Abs 0.19 (H) 0.00 - 0.04 x10(3)/[facility] LABORATORY Specimen Anatomical Collection Method Collection Time Receive d Time (Source) Location / / Volume Laterality Blood specimen 07/20/2017 10:34 7 (specimen) AM EST 10:39 AM EST Resulting Agency Comment Spec In Lab Arik Clement MD HEMATOLOGY ORDERABLES Performing Organization Address City/[facility]/ZIP Code Phon e Number [place] [id number] (ABNORMAL) Hemogram (07/20/2017 10:34 AM EST) Analysis Performed At Patho logist Time Signature WBC 17.0 (H) 4.0 - 9.5 [facility] x10(3)/[facility] LABORATORY RBC 3.70 (L) 4.58 - [facility] 5.54 [facility] x10(6)/[facility] LABORATORY Hemoglobin 10.8 (L) 13.7 - [facility] 16.5 gm/dL [facility] Hematocrit 33.4 (L) 40.5 - [facility] 48.5 % [facility] MCV 90.3 82.9 - [facility] 93.1 [facility] LABORATORY MCH 29.2 27.5 - [facility] 32.1 pg [facility] MCHC 32.3 32.0 - [facility] 35.7 gm/dL [facility] Platelets 211 145 - 357 [facility] x10(3)/[facility] LABORATORY RDWSD 49.1 (H) 36.0 - [facility] 45.0 [facility] LABORATORY RDWCV 14.7 (H) 11.4 - [facility] 13.8 % [facility] LAB[facility] MPV 9.2 7.6 - 12.9 [facility] LABORATORY nRBC % Auto 0.0 % [facility] nRBC Abs Auto 0.000 0.000 - [facility] 0.000 [facility] x10(3)/[facility] LABORATORY Specimen Anatomical Collection Method Collection Time Receive d Time (Source) Location / / Volume Laterality Blood specimen 07/20/2017 10:34 7 (specimen) AM EST 10:39 AM EST Resulting Agency Comment Spec In Lab Arik Clement MD HEMATOLOGY ORDERABLES Performing Organization Address City/State/[place] [address] (ABNORMAL) APTT (07/20/2017 10:34 AM EST) P athologist Signature PTT 79 (H) 25 - 35 sec [facility] Comment: The recommended therapeutic range for fu ll dose, unfractionated heparin at [facility] is 80 ? 114 seconds. The use [...] Clement MD HEMATOLOGY ORDERABLES Performing Organization Address City/[facility]/ZIP Code Phon e Number [address] POCT Glucose (07/20/2017 7:41 AM EST) P athologist Signature POC Glucose 174 65 - 199 [facility] mg/dL [facility] Comment: Supplemental ranges: <140 mg/dL before meals <180 mg/dL all other times of the day Specimen Anatomical Collection Method Collection Time Receive d Time (Source) Location / / Volume Laterality Blood specimen 07/20/2017 7:41 AM 017 7:41 (specimen) EST AM EST Arik Clement MD POINT OF CARE TEST ORDERABLE S Performing Organization Address City/[facility]/ZIP Code Phon e Number [address] JULIAN, legs, multiple levels (07/20/2017 7:33 AM EST) Component Value Ref Test Analysis Performed At Patholo gist Range Method Time Signature VB Text Department: Vascular Surgery Lab VASCUBASE Report Patient: [id number] (GREGORY FATIMA) CPT: 40461 ICD10: I75.021;I99.8 Referring Physician: ARIK CLEMENT ?? [...] [facility] [place] Range Method Time Signature VB Text Department: Vascular Surgery Lab VASCUBASE Report Patient: [id number] (GREGORY FATIMA) CPT: 38427 ICD10: I97.610;I99.8 Referring Physician: ARIK CLEMENT ?? [...] Signature POC Glucose 199 65 - 199 [facility] mg/dL [facility] Comment: Supplemental ranges: <140 mg/dL before meals <180 mg/dL all other times of the day Specimen Anatomical Collection Method Collection Time Receive d Time (Source) Location / / Volume Laterality Blood specimen 07/20/2017 3:41 AM 017 3:41 (specimen) EST AM EST Arik Clement MD POINT OF CARE TEST ORDERABLE S Performing Organization Address City/State/[place] [address] Lactate, whole blood, send to lab (Leb/CGP) (07/20/2017 2:25 AM EST) athologist Signature Lactate WB 2.0 0.5 - 2.2 [facility] LABORATORY Specimen Anatomical Collection Method Collection Time Receive d Time (Source) Location / / Volume Laterality Blood specimen Venous Draw / 07/20/2017 2:25 AM 2016 2:37 (specimen) Unknown EST AM EST Resulting Agency Comment Spec In Lab Zulma Samuel MD CHEMISTRY ORDERABLES Performing Organization Address City/[facility]/[place] [address] (ABNORMAL) APTT (07/20/2017 2:25 AM EST) P athologist Signature PTT 36 (H) 25 - 35 sec [facility] Comment: The recommended therapeutic range for fu ll dose, unfractionated heparin at [facility] is 80 ? 114 seconds. The use [...] Reaves MD HEMATOLOGY ORDERABLES Performing Organization Address City/[facility]/[place] [address] (ABNORMAL) Prothrombin Time (07/20/2017 2:25 AM EST) P athologist Signature PT 17.7 (H) 11.8 - 14.0 [facility] [...] Organization Address City/State/[place] [address] (ABNORMAL) Basic Metabolic Panel (non-fasting) (07/20/2017 2:25 AM EST) athologist Signature Glucose Lvl 187 65 - 199 [facility] mg/dL [facility] Comment: Diabetes: >=200 mg/dL plus symp toms BUN 35 (H) 10 - 20 mg/dL [facility] Creatinine 1.51 (H) 0.80 - 1.50 mg/dL [facility] LABOR[facility]ORY Sodium 134 (L) 135 - 145 mmol/L [facility] Potassium Not Perf 3.5 - 5.0 mmol/L [facility] Comment: Specimen hemolyzed. Called by: [facility], Read back by: Chitra Orantes, Date/Time:07/20/17 03:05. Please note: ??Patients with WBC >100,00 0 may have falsely elevated Potassium levels. ??For accurate Potassium quantif ication in these patients send serum separator tube (gold top) for subsequent determinations. ??Contact the Clinical Chemistry Laboratory if there are any qu estions. Chloride 92 (L) 98 - 107 mmol/L [facility] CO2 29 22 - 31 mmol/L [facility] Anion Gap 13 5 - 15 mmol/L [facility] Calcium 8.6 8.5 - 10.5 mg/dL [facility] Estimated GFR 46 (L) >=60 [facility] Comment: The reported eGFR should be multiplied b y 1.2 for patients. The MDRD is not an appropriate measure o f renal function for patients with body mass extremes or in patients with acute kidney failure. http://Gezlong/DHnkdep http://Gezlong/DHMCnkf Specimen Anatomical Collection Method Collection Time Receive d Time (Source) Location / / Volume Laterality Blood specimen 07/20/2017 2:25 AM 017 2:33 (specimen) EST AM EST Resulting Agency Comment Spec In Lab Annita Reaves MD CHEMISTRY ORDERABLES Performing Organization Address City/State/ZIP [place] [address] documented in this encounter [...] Group 2) 0-8,000 Units, Intravenous, BOLUS PER [facility] PROTOCOL, Starting Wed07/20/17 at 0424, Until Wed07/20/17 [...]
Routine documented in this encounter Care Teams Store Shopper Relationship Specialty Start Date End Date Lovely Vicente MD PCP - General 04/16/[address] [place] [address] documented as of this encounter
--- OUTSIDE RECORDS SUMMARY | 2022-02-16 08:18 | XMS_ITS | Encounter Summary ---
:1945 [place] [address] Care Team Providers Name Role Phone Lovely Vicente MD Primary Care Provider Encounter Details Date Type Department Care Team Description 07/16/2017 Telephone Endocrinology at [facility] C Manuela Holliday, [facility] [place] [address] ENDOCRINOLOGY DEPT [phone] [place], [place] [address] (Wo rk) Social History Tobacco [...] Poole PA [facility] Cardiology [place], [place] [address] (Wo rk) 03/26/2022 Office Visit Cardiology Vitaliy Nobles MD [facility] CARDIOLOGY [place], [place] [address] (Wo rk) documented as of this encounter Visit Diagnoses Not on filedocumented in this encounter Care Teams Data Operations Manager Relationship Specialty Start Date End Date Lovely Vicente MD PCP - General 04/16/[address] [place] [address] documented as of this encounter
--- OUTSIDE RECORDS SUMMARY | 2022-02-16 08:18 | XMS_ITS | Encounter Summary ---
:1945 Author Organization [facility] Address [address] [facility] [place] [address] Care Team Providers Name Role Phone Lovely Vicente MD Primary Care Provider Encounter Details Date Type Department Care Team Description 07/29/2017 Transcribe Orders Laboratory Lovely Vicente, Coronary artery rupture; [facility] Ischemic cardiomyopathy; [facility] [address] Atherosclerosis of [place] co ronary artery, angina presence unspecified, unspecified whether [place] or transplanted heart; [place], [place] [address] Essential hypertension, malignant; [id number] [place], [place] 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, unspecified long-term insulin use status [phone] [id number] Social History Tobacco Use Types Packs/Day Years [...] Visit Cardiology Liz Poole PA [facility] er Cardiology Dept [place], [place] [address] (Wo rk) 03/26/2022 Office Visit Cardiology Vitaliy Nobles MD [facility] ER CARDIOLOGY [place] [id number] (Wo rk) Scheduled Orders Name Type Priority Associated Diagnoses Order S chedule Lab Use Only, Fax Lab Routine Coronary arter y rupture Expected: 07/29/2017 Request Ischemic cardiom yopathy (Approximate), Atherosclerosis of [place] Ex jose: 07/29/2018 coronary artery, angina presence unspecified, unspecified whether [place] or transplanted heart Essential hypertension, malignant documented as of this encounter Results Uric acid (08/04/2017 12:55 PM EST) athologist Signature Uric Acid 7.1 3.5 - 8.5 [facility] RYAN mg/dL [facility] Specimen Anatomical Collection Method Collection Time Receive d Time (Source) Location / / Volume Laterality Blood specimen 08/04/2017 12:55 8 1:01 (specimen) PM EST PM EST Resulting Agency Comment Spec In Lab Lovely Vicente MD CHEMISTRY ORDERABLES Performing Organization Address City/State/ZIP [place] [address] (ABNORMAL) Hemogram (08/04/2017 12:55 PM EST) Analysis Performed At Patho logist Time Signature WBC 15.8 (H) 4.0 - 9.5 [place] [facility] x10(3)/[facility] LABORATORY RBC 3.48 (L) 4.58 - [place] RYAN 5.54 [facility] x10(6)/[facility] LABORATORY Hemoglobin 9.9 (L) 13.7 - [place] R[place]AN 16.5 gm/dL [facility] Hematocrit 31.4 (L) 40.5 - [place] R[place]AN 48.5 % [facility] MCV 90.2 82.9 - [place] [facility] 93.1 fL [facility] MCH 28.4 27.5 - [place] [facility] 32.1 pg [facility] MCHC 31.5 (L) 32.0 - [place] [facility] 35.7 gm/dL [facility] Platelets 310 145 - 357 [place] [facility] x10(3)/[facility] LABORATORY RDWSD 51.8 (H) 36.0 - [facility] 45.0 [facility] LABORATORY RDWCV 15.8 (H) 11.4 - [facility] 13.8 % [facility] MPV 8.9 7.6 - 12.9 [facility] LABORATORY nRBC % Auto 0.0 % [facility] nRBC Abs Auto 0.000 0.000 - [facility] 0.000 [facility] x10(3)/[facility] LABORATORY Specimen Anatomical Collection Method Collection Time Receive d Time (Source) Location / / Volume Laterality Blood specimen 08/04/2017 12:55 8 1:01 (specimen) PM EST PM EST Resulting Agency Comment Spec In Lab Lovely Vicente MD HEMATOLOGY ORDERABLES Performing Organization Address City/State/[place] [address] (ABNORMAL) Comprehensive metabolic panel (non-fasting) (08/04/2017 12:55 PM EST) P athologist Signature Glucose Lvl 208 (H) 65 - 199 [facility] mg/dL [facility] Comment: Diabetes: >=200 mg/dL plus symp toms BUN 32 (H) 10 - 20 mg/dL [facility] Creatinine 1.58 (H) 0.80 - 1.50 mg/dL [facility] Sodium 136 135 - [...] Chloride 97 (L) 98 - 107 mmol/L [facility] CO2 25 22 - 31 mmol/L [facility] Anion Gap 14 5 - 15 mmol/L [facility] Calcium 8.6 8.5 - 10.5 mg/dL [facility] Total Protein 6.9 6.1 - 8.0 gm/dL [facility] Albumin 3.4 3.2 - 5.2 gm/dL [facility] AST 20 0 - 39 unit/L [facility] ALT 21 0 - 55 unit/L [facility] Alk Phos 93 40 - 120 unit/L [facility] Total Bilirubin 0.4 0.2 - 1.3 mg/dL [facility] Estimated GFR 43 (L) >=60 [facility] Comment: The reported eGFR should be multiplied b y 1.2 for patients. The MDRD is not an appropriate measure o f renal function for patients with body mass extremes or in patients with acute kidney failure. [email or web address] [email or web address]/DHMCnkf Specimen Anatomical Collection Method Collection Time Receive d Time (Source) Location / / Volume Laterality Blood specimen 08/04/2017 12:55 8 1:01 (specimen) PM EST PM EST Resulting Agency Comment Spec In Lab Lovely Vicente MD CHEMISTRY ORDERABLES Performing Organization Address City/State/ZIP [place] [address] (ABNORMAL) Hemoglobin A1c (08/04/2017 [...] Avg Gluc See note mg/dL [facility] Comment: Estimated Average Glucose [...] with hemoglobinopathies. Additional resources are available on [facility] ADA website. Macario HAMMOND, Ruthann J, Deysi R, et al. ??Tr anslating the A1C assay into estimated average glucose values. ??Diabetes Care 2008:31(8):1544-3832. Specimen Anatomical Collection Method Collection Time Receive d Time (Source) Location / / Volume Laterality Blood specimen 08/04/2017 12:55 8 1:01 (specimen) PM EST PM EST Resulting Agency Comment Spec In Lab Lovely Vicente MD CHEMISTRY ORDERABLES Performing Organization Address City/State/Z[place] [address] (ABNORMAL) Prothrombin Time (08/04/2017 12:55 PM EST) P athologist Signature PT 35.4 (H) 11.8 - 14.0 [facility] LABORATORY INR 3.5 (H) 0.9 - 1.1 [facility] [...] Organization Address City/State/[place] [address] documented in this encounter Visit Diagnoses Diagnosis Coronary artery rupture Acute myocardial infarction, unspecified site, episode of care unspecified Ischemic cardiomyopathy Other specified forms of chronic ischemi c heart disease Atherosclerosis of [place] coronary arter y, angina presence unspecified, unspecified whether [place] or transplanted heart Essential hypertension, malignant Diabetes mellitus due to underlying cond ition with diabetic nephropathy, unspecified long term care administrator insulin use status documented in this encounter Care Teams Costume Maker Relationship Specialty Start Date End Date Lovely Vicente MD PCP - General 04/16/[address] [place] [address] documented as of this encounter
--- OUTSIDE RECORDS SUMMARY | 2022-02-16 08:18 | XMS_ITS | Encounter Summary ---
:1945 Author Organization [facility] [place] [address] Care Team Providers Name Role Phone Lovely Vicente MD Primary Care Provider Reason for Visit Reason Onset Date Comments Other 07/22/2017 lovenox bridge Encounter Details Date Type Department Care Team Description 07/22/2017 Telephone Cardiology at [facility] Court Cadena RN Other (lovenox bridge) [place] [address] Social History Tobacco Use Types Packs/Day [...] 4:49 PM EST VAMSI Del Castillo, at [facility], called earlier today with a question re: lovenox bridge for this patient who was recently discharged from [facility] r/t a blood clot. Discharge note faxed to [facility] (fax# [phone], Ph#: [phone]) which contains instructions r/t lovenox bridge as [...] [facility] er Cardiology Dept [place], [place] [address] (Wo rk) 03/26/2022 Office Visit Cardiology Vitaliy Nobles MD [facility] CARDIOLOGY [place], [place] [address] (Wo rk) documented as of this encounter Visit Diagnoses Not on filedocumented in this encounter Care Teams Senior Catering Sales Manager Relationship Specialty Start Date End Date Lovely Vicente MD PCP - General 04/16/[address] [place] [address] documented as of this encounter
--- OUTSIDE RECORDS SUMMARY | 2022-02-16 08:18 | XMS_ITS | Encounter Summary ---
:1945 Author Organization [facility] [place] [address] Care Team Providers Name Role Phone Lovely Vicente MD Primary Care Provider Reason for Visit Reason Comments Follow-up Encounter Details Date Type Department Care Team Description 07/29/2017 Office Visit Cardiac Surgery at [facility] Yuan Retana MD S/P CABG x [address] [facility] [place] [address] CARDIOTHORACIC SURGERY [phone] [place], [place] [address] (Wo rk) Social History Tobacco [...] evaluation by vascular surgery. Yuan Retana MD [phone] documented in this encounter Plan of Treatment Upcoming Encounters Date Type Specialty Care Team Description 02/19/2022 Laboratory Appointment Lab 02/19/2022 Office Visit Cardiology Liz Poole PA [facility] Cardiology Dept [place], [place] [address] (Wo rk) 03/26/2022 Office Visit Cardiology Vitaliy Nobles MD [facility] CARDIOLOGY [place], [place] [address] (Wo rk) documented as of this encounter Visit Diagnoses Diagnosis S/P CABG x 3 Postsurgical aortocoronary bypass status documented in this encounter Care Teams Ve Teacher Relationship Specialty Start Date End Date Lovely Vicente MD PCP - General 9/22/[address] [place] [address] documented as of this encounter
--- OUTSIDE RECORDS SUMMARY | 2022-02-16 08:18 | XMS_ITS | Encounter Summary ---
:1945 Author Organization [facility] [place] [address] Care Team Providers Name Role Phone Lovely Vicente MD Primary Care Provider Encounter Details Date Type Department Care Team Description 07/24/2017 Telephone Vascular Surgery [facility] [place] [address] [facility] [phone] VASCULAR SURGERY [place], [place] [address] (Wo rk) Social History Tobacco [...] was discharged on Coumadin. ??He presented to [place] on 07/20 with mottled toes on the [...] Office Visit Cardiology Liz Poole PA [facility] er Cardiology Dept [place], [place] [address] (Wo rk) 03/26/2022 Office Visit Cardiology Vitaliy Nobles MD [facility] ER CARDIOLOGY [place], [place] [address] (Wo lissa) documented as of this encounter Visit Diagnoses Not on filedocumented in this encounter Care Teams Kitchen Runner Relationship Specialty Start Date End Date Lovely Vicente MD PCP - General 04/16/[address] [place] [address] [address] [place] [address] documented as of this encounter
--- OUTSIDE RECORDS SUMMARY | 2022-02-16 08:19 | XMS_ITS | Encounter Summary ---
:1945 Author Organization [facility] [place] [address] Care Team Providers Name Role Phone Lovely Vicente MD Primary Care Provider Reason for Referral Consultation (Routine) - Closed Specialty Diagnoses / Referred By Contact Referred To Contact Procedures Cardiac Rehabilitation Diagnoses S/P CABG x 3 Yuan Webber, Cardiac Rehab, [address] [place] CARDIOTHORACIC [address] [place] [address] Referral ID Status Reason Start Date Expiration Date Visits V isits Requested Authorized [id number] Closed Consult, 07/14/2017 01/10/2018 36 36 Test & Treat Reason for Visit Auth/Cert Specialty Diagnoses / Procedures Referred By Contact Refer red To Contact Diagnoses STEMI (ST elevation myocardial infarction) NSTEMI STEMI Procedures CARDIAC CATHETERIZATION NAYE IPI Referral ID Status Reason Start Date Expiration Date Visits Requ ested Visits Authorized [id number] 1 1 Encounter Details Date Type Department Care Team Description 07/05/2017 - Hospital Encounter Cardiac Special Daphne Shahid MD [facility] [place] [address] Non-ST elevation myocardial infarction ( NSTEMI); 07/14/2017 Care Unit Yuan Preciado MD [facility] DR [place] [address] S/P CABG x 3 [place] [id number] Social History Tobacco Use Types Packs/Day Years [...] Patient Age: 72 y.o. Birthdate: 1945 Language: New Zealander Race: White Ethnicity: Not nor Admit Date: [...] , @ 1:20p Patient to follow-up with Multicultural Services Librarian/heart failure team in one week. An appointment will be made for you. You may call [phone] Patient to follow-up with Cardiac Surgery, Dr. Yuan Webber, in ~ 4 weeks with CXR, EKG. Inpatient Provider Contact Information: [facility] Section of Cardiac Surgery [facility] [phone] FAX [phone] Discharge Diagnoses (Hospital Problems) Primary Diagnoses: CAD [...] SETUP performed by Manny Mcknight MD at [facility] MAIN OR ??? PRO CABG, ARTERIAL, SINGLE N/A 07/07/2017 @CABG, USING ARTERIAL GRAFT;SINGLE ARTERIAL GRAFT (WRVU 33.75) performed by Yuan Webber MD at [facility] MAIN OR ??? PRO CABG, ARTERY-VEIN, TWO N/A 07/07/2017 @CABG, TWO VENOUS GRAFTS & ARTERIAL GRAFT (WRVU 7.93) performed by Yuan Webber MD at [facility] MAIN OR ??? PRO COLONOSCOPY, REMV LESN, SNARE 01/16/2014 COLONOSCOPY, POLYPECTOMY, REMOVAL LESION BY SNARE performed by Nohemi Jaimes MD at [facility] ENDOSCOPY ??? PRO ENDOSCOPY W/VIDEO-ASST VEIN HARVEST, CABG Right 07/07/2017 ENDOSCOPIC HARVEST VEIN(S) FOR CABG (WRVU 0.31) performed by Yuan Webber MD at [facility] MAIN OR ??? PRO THYROIDECTOMY 03/28/2013 THYROIDECTOMY, TOTAL OR COMPLETE performed by Manny Mcknight MD at [facility] MAIN OR Prior To Admission Medications Prescriptions Prior to Admission Medication Sig Dispense Refill Last Dose ??? levothyroxine (SYNTHROID) 175 mcg Tablet Take 1 tablet by mouth daily. 90 tablet 3 07/05/2017 [id number] ??? ascorbic acid, vitamin C, (VITAMIN C) [...] hospital and ruled infor non-ST segment elevation SC. This almost certainly represents the residual of [...] Hospital Course: Gregory Hoang was admitted to [facility] on 07/05/2017 via the Cardiology Service. During his hospital course, he was taken emergently to the research laboratory technician for an ongoing STEMI. An [...] not take or discontinue any prescription or hwsw-hgy-opjunxe medications without asking your doctor or pharmacist [...] day to have your insulin doses adjusted. [facility] Endocrine clinic office Discharge Instructions: Call your doctor if: You have a fever of greater than 101 degrees, shaking chills, if you develop redness or drainage from your incision sites, or if you have questions. Please call your surgeon's office if you have any discharge or drainage from your chest incision. Your surgeon, Dr. Yuan Webber and/or the Cardiac Surgery Physician Plug Shaper Hand Team may be reached at . Weight: [...] Dr. Yuan Webber. You may use a [place] Track or treadmill but avoid any pulling [...] friends, go to a movie, go to faith, etc. Heavy activities: No hunting, skiing, jogging, snow shoveling, snowmobiling, lawn mowing, swimming, golf or tennis until after your return appointment with the surgeon. Do not ride motorcycles, [employer] tractors or horses. Avoid the use of [...] should resume a low fat, low cholesterol, [place] Heart Association Diet/Diabetic diet. Driving: No driving [...] , @ 1:20p Patient to follow-up with Multicultural Services Librarian/heart failure team in one week. Appointment will be made for you. You may call [phone] Patient to follow-up with Cardiac Surgery, Dr. Yuan Webber, in ~ 4 weeks with CXR, EKG. Cardiac Rehabilitation: Gregory Hoang was seen today regarding participation in the outpatient Phase 2 Cardiac Rehabilitation at [facility]. The patient agrees to a referral to this program. The referral will be sent at discharge and the patient should be contacted by the Program within 1- 2 weeks from discharge. ?? Future Appointments and Orders Future Appointments Provider Department Dept Phone 09/07/2017 3:00 PM LAB, THREE L Lab 3L [facility] [phone] 09/07/2017 4:00 PM Luz Prescott MD Endocrinology at [place] [phone] Future Orders Complete By Expires EKG 12 Lead [EKG1 Custom] 08/14/2017 02/13/2018 Process Instructions: Scheduling Instructions: Questions: Which location will this be performed?: [place] Is a rhythm strip needed?: No If EKG Reason is Pre-op Evaluation, indicate diagnosis for surgery.: XR Chest PA & Lateral (Generic) [95873 [id number] Custom] 08/14/2017 02/13/2018 Process Instructions: Scheduling Instructions: Questions: Where will study be performed?: [facility] Portable exam?: Reason for exam and clinical history: CABG x 3 Other pertinent information: Stat read required?: Date of injury if applicable: Requested Time: Referral to Cardiac Rehab [EMG509 Custom] As directed Process Instructions: If no progress note charted, please enter Clinical details in comments. Scheduling Instructions: Questions: My question or request is: s/p CABG. Cardiac rehab at [facility] Referral to Home Health - at DISCHARGE [DGN0915 CPT(R)] As directed Process Instructions: Scheduling Instructions: Comments: DOCUMENTATION FOR VNA SERVICES (INCLUDING THOSE PATIENTS WITH MEDICARE COVERAGE REQUIRING HOME VNA SERVICES AND/OR HOSPICE SERVICES) PATIENT'S LOCATION: Gregory Hoang [address] [place] [address] [place] [id number] (home) Telephone Information: Aerial Gunner's Name: self In discussion with the attending physician, it is certified that this patient is under their care and that they, or a Nurse Practitioner, or Physician Plug Shaper Hand who is working directly with them, had [...] [facility] ([facility] [place] [facility] in [place]) PHONE: [phone] FAX: [phone] RN orders: Cardiopulmonary assessment, incisional assessment, assess vital signs, assessment of rehab progress, medication management and effectiveness, home safety evaluation. Please draw INR if indicated and send result to:Dr Vicente [phone] PT ORDERS: Continue rehab for endurance, gait stability and strength with mobility and transfers. Home safety evaluation. Home exercise program if appropriate. Start of Care Date:24-48 hours after discharge SPECIAL INSTRUCTIONS: For any follow up questions, needs, or issues please call the Cardiac Surgery Office at [phone] FOR MEDICARE ONLY: (please delete this section [...] OR AFTER 07/17/2017 Signed: Martha Teague APRN [facility] Section of Cardiac Surgery [facility] [phone] FAX [phone] Date: 07/14/2017 CC: MD Ivania Cr Betsy, PA [address] [place] [phone] documented in this encounter Discharge Instructions Discharge [...] day to have your insulin doses adjusted. [facility] Endocrine clinic office Patient InstructionsStMartha mcdonald APRN [...] not take or discontinue any prescription or psmi-wns-umeascq medications without asking your doctor or pharmacist [...] juice or regular (not diet) soda 6 [employer] small box of raisins 4 glucose tablets [...] day to have your insulin doses adjusted. [facility] Endocrine clinic office ? Discharge Instructions: ?? Call your doctor if: You have a fever of greater than 101 degrees, shaking chills, if you develop redness or drainage from your incision sites, or if you have questions. Please call your surgeon's office if you have any discharge or drainage from your chest incision. Your surgeon, Dr. Yuan Webber and/or the Cardiac Surgery Physician Plug Shaper Hand Team may be reached at . ?? [...] Dr. Yuan Webber. You may use a [place] Track or treadmill but avoid any pulling [...] friends, go to a movie, go to faith, etc. ?? Heavy activities: No hunting, skiing, jogging, snow shoveling, snowmobiling, lawn mowing, swimming, golf or tennis until after your return appointment with the surgeon. Do not ride motorcycles, [employer] tractors or horses. Avoid the use of [...] should resume a low fat, low cholesterol, [place] Heart Association Diet/Diabetic diet. ?? Driving: No [...] @ 1:20p ?? Patient to follow-up with Multicultural Services Librarian/heart failure team in one week. An appointment has been made for you, you can call [phone] ?? Patient to follow-up with Cardiac Surgery, Dr. Yuan Webber, in ~ 4 weeks with CXR, EKG. ? Cardiac Rehabilitation: Gregory Hoang??was seen today regarding participation in the outpatient Phase 2 Cardiac Rehabilitation at [facility]. ?? The patient agrees to a referral to this program.? The referral will be sent at discharge and the patient should be contacted by the Program within 1- 2 weeks from discharge. ? Future Appointments and Orders Future Appointments Provider Department Dept Phone ?? 09/07/2017 3:00 PM LAB, THREE L Lab 3L [facility] [phone] ?? 09/07/2017 4:00 PM Luz Prescott MD Endocrinology at [place] [phone] Future Orders Complete By Expires ?? EKG 12 Lead [EKG1 Custom] 08/14/2017 02/13/2018 ?? Process Instructions: ? Scheduling Instructions: ? Questions: ? Which location will this be performed?: [facility] ?? Is a rhythm strip needed?: No ?? If EKG Reason is Pre-op Evaluation, indicate diagnosis for surgery.: ?? XR Chest PA & Lateral (Generic) [[id number] Custom] 08/14/2017 02/13/2018 ?? Process Instructions: ? Scheduling Instructions: ? Questions: ? Where will study be performed?: [facility] ?? Portable exam?: ?? Reason for exam and clinical history: CABG x 3 ?? Other pertinent information: ?? Stat read required?: ?? Date of injury if applicable: ?? Requested Time: ?? Referral to Cardiac Rehab [QOT614 Custom] As directed ? Process Instructions: ?? If no progress note charted, please enter Clinical details in comments. ?? Scheduling Instructions: ? Questions: ? My question or request is: s/p CABG. Cardiac rehab at [facility] ? Arrangements for VNA/home care: As [...] RN - 07/14/2017 2:34 PM EST The patient/commissary representative has been provided a list of Home Health Agencies/DME vendors which serve their preferred geographic area. A letter describing our affiliations was reviewed with them and theywere educated about their right to choose where referrals are placed. Patient requests referral to [facility] PHONE: [phone] FAX: [phone] Expected date of discharge: 07/14 Referral routed to the Skidder Operator for matching with agency/vendor and to [...] day to have your insulin doses adjusted. [facility] Endocrine clinic office Kathie Carrera APRN [facility] Endocrinology Diabetes Management Pager [phone] 20 minutes of this 35 minute visit was spent with the patient in counseling on diabetes and treatment plan, reviewing all glucose and insulin data as well as relevant laboratory results with the patient, and coordination of care on the inpatient unit including nursing and primary team. Zulma Andres, RN - 07/14/2017 10:30 AM EST The patient/commissary representative has been provided a list of Home Health Agencies/DME vendors which serve their preferred geographic area. A letter describing our affiliations was reviewed with them and theywere educated about their right to choose where referrals are placed. Patient requests referral to : Yasmani [facility] ([facility] [place] [facility] in [place]) PHONE: [phone] FAX: [phone]. Expected date of discharge: 07/14/17 Referral routed to the Skidder Operator for matching with agency/vendor and to [...] hours. If BG remains greater than 240, xzycfe18 units (no more than three times) &??call [...] #6 s/p CABG X3. FSBG 80 [place], reports no symptoms but did drink some [...] Will continue to follow Katerin Azul APRN [facility] Endocrinology Diabetes Management Pager [phone] minutes of this 25 minute visit [...] of infiltration/extravasation Discussed plan of care with MAINTENANCE MECHANIC ELEVATORS and RN. Elevate exrtemity and apply intermittent Warm compresses. Name of MD contacted Dr. Shaw Brown 07/13/2017 @ 0680 Name of RN contacted Ale Rangel RN Name of Pharmacist if consulted NA Name of Plastics MD ( if consulted) NA (Mandatory photo for infiltrations/ extravasations scoring a stage 2 or greater, but recommended forstage 1)( include measuring tape and identifier in the photo) SHIATSU THERAPIST CARING FOR THIS PATIENT WILL CONTINUE TO [...] measuring tape and identifier in the photo) SHIATSU THERAPIST CARING FOR THIS PATIENT WILL CONTINUE TO [...] regard to both infiltrates addressed by this race and sports book writer.All of Mr. Hoang's responses were entirely appropriate. Images of infiltrates attached here. Martha Sharp APRN - 07/13/2017 8:01 AM EST Cardiac Surgery Progress Note: ID: [id number] 72 year old male POD#6 s/p CABGx3 [...] discharge. ?? I have met with the patient/commissary representative to discuss discharge planning needs. I have provided the [facility], Office of Care Management letter from the Lens Finisher pertaining to rehab referrals. I have also provided a letter describing our affiliations within the [facility] and educated them about their right to choose where referrals are placed. ?? I reviewed the different levels of rehab including SNF, swing, acute and LTAC with the patient/commissary representative. ?? The patient/commissary representative has been provided a list of facilities within their preferred geographic area. ?? I have requested that the patient/commissary representative provide at least three choices for referral. ?? The patient/commissary representative have requested referrals to: ?? 1. . ?? 2. [facility] ?? 3. More to be entered ?? Expected date of discharge: 07/14 Note routed to Skidder Operator who will communicate referrals to facilities [...] hours. If BG remains greater than 240, yzckqz95 units (no more than three times) & [...] hours. If BG remains greater than 240, uvvlkd19 units (no more than three times) & call for new basal insulin orders. ??If less than 240 after two hours, give no insulin and resume prior schedule. Will continue to follow Katerin Patel. STACIE Azul [facility] Endocrinology Diabetes Management Pager [phone] 20 minutes of this 35 minute visit was spent with the patient in counseling on diabetes and treatment plan, reviewing all glucose and insulin data as well as relevant laboratory results with the patient, and coordination of care on the inpatient unit including nursing and primary team. Makayla Stevenson APRN - 07/12/2017 9:52 AM EST Cardiac Surgery Progress Note: ID: [id number] 72 year old male POD#5 s/p CABGx3 [...] 07/11/2017 7:18 PM EST Patient arrived from [facility]. VSS. MSI dressing pulled off with [...] hours. If BG remains greater than 240, stcxaw29 units (no more than three times) & [...] AM EST Cardiac Surgery Progress Note: ID: [id number] 72 year old male POD#4 s/p CABGx3 [...] hours. If BG remains greater than 240, mfvmau63 units (no more than three times) & [...] AM EST Cardiac Surgery Progress Note: ID: [id number] 72 year old male POD#3 s/p CABGx3 [...] Gas) No results found for: PHART, PO2ART, WCF8JKE Assessment/Plan: 72 year old male POD#3 s/p [...] Encounter Note Patient Name: Gregory Hoang : [id number] MR#: [id number] Admit Date: 07/05/2017 4:20 PM Hospital Day 4 days Narrative: Patient was sitting in chair, hugging heart pillow, opened his eyes, nodding to come into room Assessment: Patient was sleepy. Intervention and Outcome: Introduced grip services and patient reached his hand out in appreciation. Follow-up: Manager Report remains available for support. Time in Direct [...] 07/09/2017 10:45 AM EST Report given to hotel staff member to cover care Maddison Cee PA - 07/09/2017 9:00 AM EST Cardiac Surgery Progress Note: ID: [id number] 72 year old male POD#2 s/p CABGx3 [...] Attending Surgeon on rounds. Signed: STEPHANIE Iqbal [facility] Section of Cardiac Surgery Date: 07/09/2017 Magnolia Santiago [facility] - 07/09/2017 1:[address] [...] when IABP d/c'ed. Gretchen Carolina, PT Pager [phone] Maddison Cee PA - 07/08/2017 11:27 AM EST Cardiac Surgery Progress Note: ID: [id number] 72 year old male POD#1 s/p CABGx3 [...] Attending Surgeon on rounds. Signed: STEPHANIE Iqbal [facility] Section of Cardiac Surgery Date: 07/08/2017 [...] unit. NICK SEGAL MD 07/08/2017 Jay Munoz [facility] - 07/08/2017 4:[address] [...] in place in R femoral. No hematoma. PAINT STOCKMAN- Intact Psych- Anxious Skin- Dry, no peripheral [...] Dinorah Ramírez MD, PGY-1 Cardiology S1 (pgr. [id number]) Daphne Shahid MD - 07/06/2017 10:18 PM [...] intact. IABP in place in R femoral. PAINT STOCKMAN- Intact Psych- Anxious Skin- Dry, no peripheral [...] Dinorah Ramírez MD, PGY-1 Cardiology S1 (pgr. [id number]) . CARDIOLOGY ATTENDING NOTE Patient: Gregory Hoang [...] note for details. DAPHNE SHAHID MD Pager [phone] Jet Mckenna MD - 07/05/2017 6:48 PM EST Preliminary Cardiac Catheterization Procedure Note: Procedure(s) performed: Left heart cath, IABP insertion Access: Right INTERNET TECHNOLOGY MANAGER-->8fr IABP A time-out was conducted prior [...] effect. Heparin gtt maintained. Pt transferred to research laboratory technician. documented in this encounter H&P Notes Daphne Shahid MD - 07/05/2017 6:08 PM EST CARDIOLOGY HISTORY & PHYSICAL EXAM Date of Admission: 07/05/2017 ( Hospital Day 0 days ) Responsible Attending: Daphne Shahid MD PCP: Lovely Vicente MD PCP#: [phone] Patient Active Problem List Diagnosis Code ??? [...] No significant valvular disease. Taken to the research laboratory technician urgently for ongoing STEMI. [facility] Labs: INR 1.0 WBC 5.88 Hgb [...] monitor I/O - s/p lasix in the research laboratory technician, redose to aim net neg [...] - ISS - hold metformin - f/u [facility] #Home Meds - continue levothyroxine 175mcg - CPAP at night # Routine - DVT PPx: heparin drip - Diet: NPO - Code Status: FULL - Dispo: [facility] Cedric Bey MD Internal Medicine, PGY-2 Cardiology S1, Team Pager # [phone] CARDIOLOGY ATTENDING NOTE Patient: Gregory Hoang Date [...] amenable for PCI. DAPHNE SHAHID MD Pager [phone] documented in this encounter Miscellaneous Notes Consult Note - Daphne Shahid MD - 07/14/2017 11:46 AM EST Heart Failure Service Inpatient Consult Note Gregory Hoang Date of : 1945 Age: 72 y.o. Today's date: 07/14/17 PCP: Lovely Vicente MD TAPE EDITOR: None Place of Service: [facility] Reason for Consult: Dr. Webber has requested [...] SETUP performed by Manny Mcknight MD at [facility] MAIN OR ??? PRO CABG, ARTERIAL, SINGLE N/A 07/07/2017 @CABG, USING ARTERIAL GRAFT;SINGLE ARTERIAL GRAFT (WRVU 33.75) performed by Yuan Webber MD at [facility] MAIN OR ??? PRO CABG, ARTERY-VEIN, TWO N/A 07/07/2017 @CABG, TWO VENOUS GRAFTS & ARTERIAL GRAFT (WRVU 7.93) performed by Yuan Webber MD at [facility] MAIN OR ??? PRO COLONOSCOPY, REMV LESN, SNARE 01/16/2014 COLONOSCOPY, POLYPECTOMY, REMOVAL LESION BY SNARE performed by Nohemi Jaimes MD at [facility] ENDOSCOPY ??? PRO ENDOSCOPY W/VIDEO-ASST VEIN HARVEST, CABG Right 07/07/2017 ENDOSCOPIC HARVEST VEIN(S) FOR CABG (WRVU 0.31) performed by Yuan Webber MD at [facility] MAIN OR ??? PRO THYROIDECTOMY 03/28/2013 THYROIDECTOMY, TOTAL OR COMPLETE performed by Manny Mcknight MD at [facility] MAIN OR Outpt Meds: Current [...] following studies: EKG 07/14/17: NSR 75 bpm, BINDERY HELPER anterior infarct, LAD CXR 07/11/17: FINDINGS: Sternotomy wires. The patient has been extubated, left chest tube removed, and Madison-Suzi catheter removed since the 07/07/2017 study. Atelectasis [...] was discussed with Zehra. Jaden Kelley MD Account Planner Pager [phone] CARDIOLOGY ATTENDING NOTE Patient: Gregory Hoang Date [...] heart failure clinic. DAPHNE SHAHID MD Pager [phone] Plan of Care - Alden Chavarria, ELECTRICAL FITTER - 07/14/2017 11:35 AM EST Problem: Patient [...] Discharge Disposition: home with assist Alden Chavarria, ELECTRICAL FITTER Pager: [phone] Inpatient Physical Therapy Problem: Acute Rehab Services [...] sit/sit to supine -- Bed Mobility Goal, Mills Level supervision required -- Bed Mobility Goal, [...] - 3 days -- Gait Training Goal, Mills Level supervision required -- Gait Training Goal, [...] days -- Transfer Training Goal, Activity Type fyx-ao-kjlnp/gfaaj-ia-jbf;gbn-km-ulprs/bjges-iq-gdf;toilet -- Transfer Train Goal, Mills Level supervision required -- Transfer Training Goal, [...] keeping present for 2 days per family. Floor Sanding Machine Operator noted of frustrations, house keeping sent to room. Patient offered showered twice, refused. at bedside, frustrated that shower not complete, informed that patient had refused several times. requesting to see RACE AND SPORTS BOOK WRITER, paged sent to Martha, will come to bedside (middle of consult). not willing to wait, Martha notified that family had gone home. Encouraged to come for morning rounds a t 8am. Diabetes team at bedside - insulin adjustments made. Call cabello in reach. Continue to monitor. PLAN MOVING FORWARD: Ambulate, dressing changes BID, Please change drsg at 4am per Martha RACE AND SPORTS BOOK WRITER request. INDIVIDUALIZED FALL PREVENTION INTERVENTIONS: Patient-specific fall [...] levels on the lower side, 60ml of [employer] Hogg juice given after a FS of 80. [...] Conf 07/13/17 0502 Interdisciplinary Rounds/Family Conf Participants insurance case manager;dietitian/nutrition services;nursing;occupational therapy;patient;pharmacy;physical therapy;physician Plan of [...] Anticipated Discharge Disposition: home with assist Pager: [phone] CLARISSA SEGAL, PT 07/12/2017 Physical Therapy Rehabilitation [...] to sit/sit to supine Bed Mobility Goal, Mills Level supervision required Bed Mobility Goal, Additional Goal adheres to psternal precautions for transfer Goal: Gait Training Goal Stand Alone Therapy Goal Outcome: Ongoing (Interventions Implemented as Appropriate) 07/12/17 1225 Gait Training Goal Gait Training Goal, Date Established 07/12/17 Gait Training Goal, Time to Achieve 2 - 3 days Gait Training Goal, Mills Level supervision required Gait Training Goal, Assist [...] 3 days Transfer Training Goal, Activity Type dbm-yf-xlfrc/huxzy-qx-fxd;idz-de-fgnys/gltmm-zx-nmj;toilet Transfer Train Goal, Mills Level supervision required Transfer Training Goal, Additional Goal adheres to sternal precautions during transfer Consult Note - Octavia Vaughn RN - 07/12/2017 10:50 AM [facility] Gregory Hoang was seen today regarding participation in the outpatient Phase 2 Cardiac Rehabilitation at [facility]. The patient agrees to a referral [...] IV site, amio to other piv and DETECTIVE NARCOTICS AND VICE at bedside to help assess, IV removed. [...] Outcome: Ongoing (Interventions Implemented as Appropriate) 07/11/17199907/11/17200907/12/17 [facility] [place] Care Interventions Self-Care Promotion -- -- [...] staff, he stood and marched in place. [place] weak, wanting to sit back down. Remained [...] Outcome: Ongoing (Interventions Implemented as Appropriate) 07/05/17 [id number] Mutuality/Individual Preferences What Anxieties, Fears or Concerns [...] Health/Prescription Coverage: Primary Insurance: MEDICARE Secondary Insurance: [place] Prescription Coverage: yes Preferred Pharmacy: [facility] Other: none Primary Care Provider: Lovely Vicente MD [phone] Patient/Caregiver Goals of Treatment:live and get my breath back Potential Needs for Transition of Care: Rehab/SNF: [facility] Home Health: NA DME: TBD Dialysis: na Community Resources: available Transportation: yes Other: none Anticipated Barriers to Discharge/Special Considerations: none Plan: Likely SNF Rehab before home A member of the Care Management team will continue to monitor progress, follow for continuity of care and assist with transition of care planning. ERLIN Weiss Pager: [phone] Consult Note - Katerin Azul RN - [...] management and to provide a review of skilled nursing diabetes care. Diabetes History: Gregory Hoang has [...] patient W/E coverage, Dr. Jeane Tatum, pager [phone] Katerin Patel. STACIE Azul Endocrinology Diabetes Management Pager [phone] Plan of Care - Stephanie Godoy RN [...] Webber MD - 07/07/2017 6:27 PM EST [facility] Operative Note Patient Name: Gregory Hoang : [id number] MR#: [id number] Case Date: 07/07/2017 Surgeon: Surgeon(s) and Role: * Yuan Webber MD - Primary * Michael Drake PA - Physician Plug Shaper Hand * Linda Flores PA - Physician Plug Shaper Hand Preoperative diagnosis: 3VD Postoperative diagnosis: CAD, severe [...] Operative Note Patient Name: Gregory Hoang : [id number] MR#: [id number] Case Date: 07/07/2017 Surgeon: Surgeon(s) and Role: * Yuan Webber MD - Primary * Michael Drake PA - Physician Plug Shaper Hand * Linda Flores PA - Physician Plug Shaper Hand Preoperative diagnosis: 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 In this [...] code status: Full Code Katty Jovani, MS3 [employer] [facility] Cardiology S1 (Pager [phone]) Plan of Care - Emelia Ibarra RN [...] hospital and ruled infor non-ST segment elevation SC. This almost certainly represents the residual of [...] SETUP performed by Manny Mcknight MD at [facility] MAIN OR ??? PRO COLONOSCOPY, REMV LESN, SNARE 01/16/2014 COLONOSCOPY, POLYPECTOMY, REMOVAL LESION BY SNARE performed by Nohemi Jaimes MD at [facility] ENDOSCOPY ??? PRO THYROIDECTOMY 03/28/2013 THYROIDECTOMY, TOTAL OR COMPLETE performed by Manny Mcknight MD at [facility] MAIN OR Social History: Social [...] with other involved physicians Yuan Webber MD [phone] Med Student Progress Note - Jovani Katty [...] major CV events such as , stroke, SC, repeat revascularization compared to PCI). 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 Lasix given in research laboratory technician, 1.4 L out at this [...] [facility] Dept [place], [place] [address] (Wo rk) 03/26/2022 Office Visit Cardiology Vitaliy Nobles MD [facility] CARDIOLOGY [place], [place] [address] (Wo rk) Scheduled Orders Name [...] procedure are i n the results section. BRICKMASON CONTRACTOR SCAN 07/15/2017 12:00 Res ults for this [...] Routine 07/08/2017 4:00 Results f or this ([facility]) AM EST procedure are i n the [...] Yes 07/07/2017 1:35 CAD & ARTERIAL GRAFT ([facility] PM EST 7.93) @CABG, USING ARTERIAL [...] Routine 07/06/2017 7:40 Results f or this ([facility]) PM EST procedure are i n the [...] Timed 07/06/2017 2:10 Results f or this ([facility]) PM EST procedure are i n the [...] section. TYPE AND SCREEN Routine 07/06/2017 12:00 ([facility]SHANDA) PM EST APTT STAT 07/06/2017 11:24 Results [...] Routine 07/06/2017 8:10 Results f or this ([facility]) AM EST procedure are i n the [...] Timed 07/05/2017 4:55 Results f or this ([facility] PM EST procedure are i n the [...] [place] at 08/19/2017 10:30 AM Martha Teague PRIMARY CLINICIAN IMG DX ORDERABLES SCAN DOC: BRICKMASON CONTRACTOR (07/15/2017 12:00 AM EST) Narrative 07/15/2017 12:00 [...] Signature POC Glucose 186 65 - 199 [facility] mg/dL [facility] LABORATORY Comment: Supplemental ranges: <140 mg/dL before meals <180 mg/dL all other times of the day Specimen Anatomical Collection Method Collection Time Receive d Time (Source) Location / / Volume Laterality Blood specimen 07/14/2017 11:56 7 (specimen) AM EST 11:56 AM EST Yuan Webber MD POINT OF CARE TEST ORDERABLE S Performing Organization Address City/State/[place] [address] POCT Glucose (07/14/2017 7:52 AM EST) athologist Signature POC Glucose 126 65 - 199 [facility] mg/dL [facility] LABORATORY Comment: Supplemental ranges: <140 mg/dL before meals <180 mg/dL all other times of the day Specimen Anatomical Collection Method Collection Time Receive d Time (Source) Location / / Volume Laterality Blood specimen 07/14/2017 7:52 AM 017 7:52 (specimen) EST AM EST Yuan Webber MD POINT OF CARE TEST ORDERABLE S Performing Organization Address City/State/[place] [address] (ABNORMAL) Prothrombin Time (07/14/2017 4:46 AM EST) athologist Signature PT 26.4 (H) 11.8 - 14.0 [facility] LABORATORY INR 2.4 (H) 0.9 - 1.1 [facility] [...] Wilson APRN HEMATOLOGY ORDERABLES Performing Organization Address City/[facility]/[place] [address] Potassium (07/14/2017 4:46 AM EST) athologist Signature Potassium 4.3 3.5 - 5.0 [facility] mmol/L [facility] LABORATORY Comment: Please note: ??Patients [...] Wilson APRN CHEMISTRY ORDERABLES Performing Organization Address City/[facility]/[place] [address] POCT Glucose (07/14/2017 4:34 AM EST) athologist Signature POC Glucose 115 65 - 199 [facility] mg/dL [facility] LABORATORY Comment: Supplemental ranges: <140 [...] [facility]/ZIP Code Phon e Number [address] POCT Glucose (07/13/2017 11:33 PM EST) athologist Signature POC Glucose 132 65 - 199 [facility] mg/dL [facility] LABORATORY Comment: Supplemental ranges: <140 mg/dL before meals <180 mg/dL all other times of the day Specimen Anatomical Collection Method Collection Time Receive d Time (Source) Location / / Volume Laterality Blood specimen 07/13/2017 11:33 7 (specimen) PM EST 11:33 PM EST Yuan Webber MD POINT OF CARE TEST ORDERABLE S Performing Organization Address City/State/ZIP Code Phon e Number [address] POCT Glucose (07/13/2017 9:25 PM EST) athologist Signature POC Glucose 121 65 - 199 [place] mg/dL [facility] LABORATORY Comment: Supplemental ranges: <140 mg/dL before meals <180 mg/dL all other times of the day Specimen Anatomical Collection Method Collection Time Receive d Time (Source) Location / / Volume Laterality Blood specimen 07/13/2017 9:25 PM 017 9:25 (specimen) EST PM EST Yuan Webber MD POINT OF CARE TEST ORDERABLE S Performing Organization Address City/State/[place] [address] POCT Glucose (07/13/2017 4:55 PM EST) athologist Signature POC Glucose 79 65 - 199 [facility] mg/dL [facility] LABORATORY Comment: Supplemental ranges: <140 mg/dL before meals <180 mg/dL all other times of the day Specimen Anatomical Collection Method Collection Time Receive d Time (Source) Location / / Volume Laterality Blood specimen 07/13/2017 4:55 PM 017 4:55 (specimen) EST PM EST Yuan Webber MD POINT OF CARE TEST ORDERABLE S Performing Organization Address City/State/[place] [address] POCT Glucose (07/13/2017 11:16 AM EST) athologist Signature POC Glucose 163 65 - 199 [facility] mg/dL [facility] LABORATORY Comment: Supplemental ranges: <140 [...] [facility]/[place] [address] POCT Glucose (07/13/2017 8:07 AM EST) P athologist Signature POC Glucose 96 65 - 199 [facility] mg/dL [facility] LABORATORY Comment: Supplemental ranges: <140 [...] [facility]/[place] [address] (ABNORMAL) Prothrombin Time (07/13/2017 4:26 AM EST) P athologist Signature PT 20.8 (H) 11.8 - 14.0 [facility] LABORATORY INR 1.8 (H) 0.9 - 1.1 [facility] [...] Wilson APRN HEMATOLOGY ORDERABLES Performing Organization Address City/[facility]/[place] [address] (ABNORMAL) Basic Metabolic Panel (non-fasting) (07/13/2017 4:26 AM EST) athologist Signature Glucose Lvl 95 65 - 199 [facility] mg/dL [facility] LABORATORY Comment: Diabetes: >=200 mg/dL plus symp toms BUN 25 (H) 10 - 20 mg/dL [facility] LABORATORY Creatinine 1.19 0.80 - 1.50 mg/dL [facility] LABORATORY Sodium 143 135 - [...] estions. Chloride 104 98 - 107 mmol/L [facility] LABORATORY CO2 26 22 - 31 mmol/L [facility] LABORATORY Anion Gap 13 5 - 15 mmol/L [facility] LABORATORY Calcium 7.7 (L) 8.5 - 10.5 mg/dL [facility] LABORATORY Estimated GFR 60 >=60 [facility] LABORATORY Comment: The reported eGFR should be multiplied b y 1.2 for patients. The MDRD is not an appropriate measure o f renal function for patients with body mass extremes or in patients with acute kidney failure. http://[employer]/DHnkdep http://[employer]/DHMCnkf Specimen Anatomical Collection Method Collection Time Receive d Time (Source) Location / / Volume Laterality Blood specimen 07/13/2017 4:26 AM 017 4:46 (specimen) EST AM EST Resulting Agency Comment Spec In Lab Makayla Wilson APRN CHEMISTRY ORDERABLES Performing Organization Address City/State/[place] [address] POCT Glucose (07/13/2017 3:52 AM EST) athologist Signature POC Glucose 93 65 - 199 [facility] mg/dL [facility] LABORATORY Comment: Supplemental ranges: <140 mg/dL before meals <180 mg/dL all other times of the day Specimen Anatomical Collection Method Collection Time Receive d Time (Source) Location / / Volume Laterality Blood specimen 07/13/2017 3:52 AM 017 3:52 (specimen) EST AM EST Yuan Webber MD POINT OF CARE TEST ORDERABLE S Performing Organization Address City/State/ZIP Code Phon e Number [address] POCT Glucose (07/13/2017 12:21 AM EST) athologist Signature POC Glucose 80 65 - 199 [facility] mg/dL [facility] LABORATORY Comment: Supplemental ranges: <140 mg/dL before meals <180 mg/dL all other times of the day Specimen Anatomical Collection Method Collection Time Receive d Time (Source) Location / / Volume Laterality Blood specimen 07/13/2017 12:21 7 (specimen) AM EST 12:21 AM EST Yuan Webber MD POINT OF CARE TEST ORDERABLE S Performing Organization Address City/State/ZIP Code Phon e Number [address] POCT Glucose (07/12/2017 8:22 PM EST) athologist Signature POC Glucose 119 65 - 199 [facility] mg/dL [facility] LABORATORY Comment: Supplemental ranges: <140 mg/dL before meals <180 mg/dL all other times of the day Specimen Anatomical Collection Method Collection Time Receive d Time (Source) Location / / Volume Laterality Blood specimen 07/12/2017 8:22 PM 017 8:22 (specimen) EST PM EST Yuan Webber MD POINT OF CARE TEST ORDERABLE S Performing Organization Address City/State/ZIP Code Phon e Number [address] POCT Glucose (07/12/2017 4:02 PM EST) athologist Signature POC Glucose 114 65 - 199 [facility] mg/dL [facility] LABORATORY Comment: Supplemental ranges: <140 mg/dL before meals <180 mg/dL all other times of the day Specimen Anatomical Collection Method Collection Time Receive d Time (Source) Location / / Volume Laterality Blood specimen 07/12/2017 4:02 PM 017 4:02 (specimen) EST PM EST Yuan Webber MD POINT OF CARE TEST ORDERABLE S Performing Organization Address City/State/ZIP Code Phon e Number [address] POCT Glucose (07/12/2017 11:28 AM EST) athologist Signature POC Glucose 164 65 - 199 [facility] mg/dL [facility] LABORATORY Comment: Supplemental ranges: <140 mg/dL before meals <180 mg/dL all other times of the day Specimen Anatomical Collection Method Collection Time Receive d Time (Source) Location / / Volume Laterality Blood specimen 07/12/2017 11:28 7 (specimen) AM EST 11:28 AM EST Yuan Webber MD POINT OF CARE TEST ORDERABLE S Performing Organization Address City/State/ZIP Code Phon e Number [address] POCT Glucose (07/12/2017 7:34 AM EST) athologist Signature POC Glucose 109 65 - 199 [facility] mg/dL [facility] LABORATORY Comment: Supplemental ranges: <140 mg/dL before meals <180 mg/dL all other times of the day Specimen Anatomical Collection Method Collection Time Receive d Time (Source) Location / / Volume Laterality Blood specimen 07/12/2017 7:34 AM 017 7:34 (specimen) EST AM EST Yuan Webber MD POINT OF CARE TEST ORDERABLE S Performing Organization Address City/State/[place] [address] (ABNORMAL) Basic Metabolic Panel (non-fasting) (07/12/2017 4:11 AM EST) athologist Signature Glucose Lvl 92 65 - 199 [facility] mg/dL [facility] LABORATORY Comment: Diabetes: >=200 mg/dL plus symp toms BUN 31 (H) 10 - 20 mg/dL [facility] LABORATORY Creatinine 1.23 0.80 - 1.50 mg/dL [facility] LABORATORY Sodium 145 135 - [...] estions. Chloride 106 98 - 107 mmol/L [facility] LABORATORY CO2 Not Perf 22 - 31 mmol/L [facility] LABORATORY Comment: Add-on request. Sample too old to perform test. Anion Gap Not Calculated 5 - 15 mmol/L [facility] LABORATORY Calcium 8.1 (L) 8.5 - 10.5 mg/dL [facility] LABORATORY Estimated GFR 58 (L) >=60 [facility] LABORATORY Comment: The reported eGFR should be multiplied b y 1.2 for patients. The MDRD is not an appropriate measure o f renal function for patients with body mass extremes or in patients with acute kidney failure. http://[employer]/DHnkdep http://[employer]/DHMCnkf Specimen Anatomical Collection Method Collection Time Receive d Time (Source) Location / / Volume Laterality Blood specimen 07/12/2017 4:11 AM 017 8:57 (specimen) EST AM EST Resulting Agency Comment Spec In Lab Makayla Katie QUINONES CHEMISTRY ORDERABLES Performing Organization Address City/State/[place] [address] (ABNORMAL) Prothrombin Time (07/12/2017 4:11 AM EST) P athologist Signature PT 15.4 (H) 11.8 - 14.0 [facility] LABORATORY INR 1.2 (H) 0.9 - 1.1 [facility] [...] Wilson STACIE HEMATOLOGY ORDERABLES Performing Organization Address City/[facility]/ZIP Code Phon e Number [address] Potassium (07/12/2017 4:11 AM EST) athologist Signature Potassium 3.8 3.5 - 5.0 [facility] mmol/L [facility] LABORATORY Comment: Please note: ??Patients [...] Wilson STACIE CHEMISTRY ORDERABLES Performing Organization Address City/[facility]/[place] [address] POCT Glucose (07/12/2017 4:10 AM EST) athologist Signature POC Glucose 90 65 - 199 [facility] mg/dL [facility] LABORATORY Comment: Supplemental ranges: <140 mg/dL before meals <180 mg/dL all other times of the day Specimen Anatomical Collection Method Collection Time Receive d Time (Source) Location / / Volume Laterality Blood specimen 07/12/2017 4:10 AM 017 4:10 (specimen) EST AM EST Yuan Webber MD POINT OF CARE TEST ORDERABLE S Performing Organization Address City/State/[place] [address] POCT Glucose (07/11/2017 11:57 PM EST) athologist Signature POC Glucose 98 65 - 199 [facility] mg/dL [facility] LABORATORY Comment: Supplemental ranges: <140 [...] [facility]/[place] [address] POCT Glucose (07/11/2017 8:32 PM EST) athologist Signature POC Glucose 146 65 - 199 [facility] mg/dL [facility] LABORATORY Comment: Supplemental ranges: <140 mg/dL before meals <180 mg/dL all other times of the day Specimen Anatomical Collection Method Collection Time Receive d Time (Source) Location / / Volume Laterality Blood specimen 07/11/2017 8:32 PM 017 8:32 (specimen) EST PM EST Yuan Webber MD POINT OF CARE TEST ORDERABLE S Performing Organization Address City/State/[place] [address] XR Chest PA & [...] e xtubated, left chest tube removed, and Madison-Suzi catheter removed since the study. Atelectasis at [...] e xtubated, left chest tube removed, and Madison-Suzi catheter removed since the study. Atelectasis at [...] POC Glucose 223 (H) 65 - 199 [facility] mg/dL [facility] LABORATORY Comment: Supplemental ranges: <140 mg/dL before meals <180 mg/dL all other times of the day Specimen Anatomical Collection Method Collection Time Receive d Time (Source) Location / / Volume Laterality Blood specimen 07/11/2017 4:05 PM 017 4:05 (specimen) EST PM EST Yuan Webber MD POINT OF CARE TEST ORDERABLE S Performing Organization Address City/State/[place] [address] POCT Glucose (07/11/2017 11:55 AM EST) athologist Signature POC Glucose 176 65 - 199 [facility] mg/dL [facility] LABORATORY Comment: Supplemental ranges: <140 [...] [facility]/ZIP Code Phon e Number [address] POCT Glucose (07/11/2017 7:53 AM EST) P athologist Signature POC Glucose 189 65 - 199 [place] mg/dL [facility] LABORATORY Comment: Supplemental ranges: <140 [...] [facility]/ZIP Code Phon e Number [address] POCT Glucose (07/11/2017 4:22 AM EST) P athologist Signature POC Glucose 151 65 - 199 [place] mg/dL [facility] LABORATORY Comment: Supplemental ranges: <140 mg/dL before meals <180 mg/dL all other times of the day Specimen Anatomical Collection Method Collection Time Receive d Time (Source) Location / / Volume Laterality Blood specimen 07/11/2017 4:22 AM 017 4:22 (specimen) EST AM EST Yuan Webber MD POINT OF CARE TEST ORDERABLE S Performing Organization Address City/State/ZIP Code Phon e Number [address] Potassium (07/11/2017 2:20 AM EST) P athologist Signature Potassium 4.5 3.5 - 5.0 [facility] mmol/L [facility] LABORATORY Comment: Please note: ??Patients [...] Address City/State/ZIP Code Phon e Number [address] POCT Glucose (07/11/2017 12:17 AM EST) athologist Signature POC Glucose 162 65 - 199 [facility] mg/dL [facility] LABORATORY Comment: Supplemental ranges: <140 [...] [facility]/[place] [address] POCT Glucose (07/10/2017 8:47 PM EST) athologist Signature POC Glucose 191 65 - 199 [facility] mg/dL [facility] LABORATORY Comment: Supplemental ranges: <140 [...] [facility]/[place] [address] POCT Glucose (07/10/2017 4:06 PM EST) athologist Signature POC Glucose 131 65 - 199 [place] mg/dL [facility] LABORATORY Comment: Supplemental ranges: <140 mg/dL before meals <180 mg/dL all other times of the day Specimen Anatomical Collection Method Collection Time Receive d Time (Source) Location / / Volume Laterality Blood specimen 07/10/2017 4:06 PM 017 4:06 (specimen) EST PM EST Yuan Webber MD POINT OF CARE TEST ORDERABLE S Performing Organization Address City/State/[place] [address] POCT Glucose (07/10/2017 3:08 PM EST) athologist Signature POC Glucose 151 65 - 199 [place] mg/dL [facility] LABORATORY Comment: Supplemental ranges: <140 mg/dL before meals <180 mg/dL all other times of the day Specimen Anatomical Collection Method Collection Time Receive d Time (Source) Location / / Volume Laterality Blood specimen 07/10/2017 3:08 PM 017 3:08 (specimen) EST PM EST Yuan Webber MD POINT OF CARE TEST ORDERABLE S Performing Organization Address City/State/[place] [address] POCT Glucose (07/10/2017 2:25 PM EST) athologist Signature POC Glucose 146 65 - 199 [place] mg/dL [facility] LABORATORY Comment: Supplemental ranges: <140 mg/dL before meals <180 mg/dL all other times of the day Specimen Anatomical Collection Method Collection Time Receive d Time (Source) Location / / Volume Laterality Blood specimen 07/10/2017 2:25 PM 017 2:25 (specimen) EST PM EST Yuan Webber MD POINT OF CARE TEST ORDERABLE S Performing Organization Address City/State/ZIP Code Phon e Number [address] POCT Glucose (07/10/2017 1:23 PM EST) athologist Signature POC Glucose 166 65 - 199 [place] mg/dL [facility] LABORATORY Comment: Supplemental ranges: <140 mg/dL before meals <180 mg/dL all other times of the day Specimen Anatomical Collection Method Collection Time Receive d Time (Source) Location / / Volume Laterality Blood specimen 07/10/2017 1:23 PM 017 1:23 (specimen) EST PM EST Yuan Webber MD POINT OF CARE TEST ORDERABLE S Performing Organization Address City/State/ZIP [place] [address] POCT Glucose (07/10/2017 11:52 AM EST) P athologist Signature POC Glucose 157 65 - 199 [facility] mg/dL [facility] LABORATORY Comment: Supplemental ranges: <140 mg/dL before meals <180 mg/dL all other times of the day Specimen Anatomical Collection Method Collection Time Receive d Time (Source) Location / / Volume Laterality Blood specimen 07/10/2017 11:52 7 (specimen) AM EST 11:52 AM EST Yuan Webber MD POINT OF CARE TEST ORDERABLE S Performing Organization Address City/State/ZIP Code Phon e Number [address] POCT Glucose (07/10/2017 11:01 AM EST) P athologist Signature POC Glucose 158 65 - 199 [facility] mg/dL [facility] LABORATORY Comment: Supplemental ranges: <140 mg/dL before meals <180 mg/dL all other times of the day Specimen Anatomical Collection Method Collection Time Receive d Time (Source) Location / / Volume Laterality Blood specimen 07/10/2017 11:01 7 (specimen) AM EST 11:01 AM EST Yuan Webber MD POINT OF CARE TEST ORDERABLE S Performing Organization Address City/State/ZIP Code Phon e Number [address] POCT Glucose (07/10/2017 9:54 AM EST) P athologist Signature POC Glucose 160 65 - 199 [place] mg/dL [facility] LABORATORY Comment: Supplemental ranges: <140 mg/dL before meals <180 mg/dL all other times of the day Specimen Anatomical Collection Method Collection Time Receive d Time (Source) Location / / Volume Laterality Blood specimen 07/10/2017 9:54 AM 017 9:54 (specimen) EST AM EST Yuan Webber MD POINT OF CARE TEST ORDERABLE S Performing Organization Address City/State/ZIP Code Phon e Number [address] POCT Glucose (07/10/2017 8:58 AM EST) athologist Signature POC Glucose 183 65 - 199 [place] mg/dL [facility] LABORATORY Comment: Supplemental ranges: <140 mg/dL before meals <180 mg/dL all other times of the day Specimen Anatomical Collection Method Collection Time Receive d Time (Source) Location / / Volume Laterality Blood specimen 07/10/2017 8:58 AM 017 8:58 (specimen) EST AM EST Yuan Webber MD POINT OF CARE TEST ORDERABLE S Performing Organization Address City/State/ZIP Code Phon e Number [address] POCT Glucose (07/10/2017 8:01 AM EST) athologist Signature POC Glucose 173 65 - 199 [facility] mg/dL [facility] LABORATORY Comment: Supplemental ranges: <140 mg/dL before meals <180 mg/dL all other times of the day Specimen Anatomical Collection Method Collection Time Receive d Time (Source) Location / / Volume Laterality Blood specimen 07/10/2017 8:01 AM 017 8:01 (specimen) EST AM EST Yuan Webber MD POINT OF CARE TEST ORDERABLE S Performing Organization Address City/State/ZIP Code Phon e Number [address] POCT Glucose (07/10/2017 7:05 AM EST) athologist Signature POC Glucose 166 65 - 199 [facility] mg/dL [facility] LABORATORY Comment: Supplemental ranges: <140 mg/dL before meals <180 mg/dL all other times of the day Specimen Anatomical Collection Method Collection Time Receive d Time (Source) Location / / Volume Laterality Blood specimen 07/10/2017 7:05 AM 017 7:05 (specimen) EST AM EST Yuan Webber MD POINT OF CARE TEST ORDERABLE S Performing Organization Address City/State/[place] [address] POCT Glucose (07/10/2017 6:00 AM EST) P athologist Signature POC Glucose 162 65 - 199 [facility] mg[facility]dL [facility] LABORATORY Comment: Supplemental ranges: <140 mg/dL before meals <180 mg/dL all other times of the day Specimen Anatomical Collection Method Collection Time Receive d Time (Source) Location / / Volume Laterality Blood specimen 07/10/2017 6:00 AM 017 6:00 (specimen) EST AM EST Yuan Webber MD POINT OF CARE TEST ORDERABLE S Performing Organization Address City/State/[place] [address] (ABNORMAL) Differential, Automated (07/10/2017 4:28 AM EST) Patholo gist Method Time Signature Neutrophils % 87.9 % [facility] LABORATORY Neutr Abs (ANC) 10.70 (H) 1.70 - [facility] 6.10 [facility] x10(3)/[facility] L LABORATORY Lymphocytes % 3.9 % [facility] LABORATORY Lymphocytes Abs 0.5 (L) 0.9 - 3.2 [facility] x10(3)/[facility] LABORATORY Monocytes % 7.0 % [facility] LABORATORY Monocyte Abs 0.8 0.3 - 0.9 [facility] x10(3)/[facility] LABORATORY Eosinophils % 0.3 % [facility] LABORATORY Eosinophils Abs 0.0 0.0 - 0.4 [facility] x10(3)/[facility] LABORATORY Basophils % 0.2 % [facility] LABORATORY Basophils Abs 0.0 0.0 - 0.1 [facility] x10(3)/[facility] LABORATORY Immature Gran % 0.70 % [facility] LABORATORY Comment: Immature granulocytes(IG's)percentage an d absolute count will include metamyelocytes, myelocytes, and promyelo cytes. Blood smears from CBCs yielding IG's will be scanned manually for concor dance. If this scan disagrees with the automated IG or if promyelocytes are not ed, a manual differential will be performed. Melisa Gran Abs 0.08 (H) 0.00 - 0.04 x10(3)/[facility] LABORATORY Specimen Anatomical Collection Method Collection Time Receive d Time (Source) Location / / Volume Laterality Blood specimen 07/10/2017 4:28 AM 017 4:36 (specimen) EST AM EST Resulting Agency Comment Spec In Lab Yuan Webber MD HEMATOLOGY ORDERABLES Performing Organization Address City/State/ZIP Code Phon e Number [place] [id number] (ABNORMAL) Hemogram (07/10/2017 4:28 AM EST) Analysis Performed At Patho logist Time Signature WBC 12.2 (H) 4.0 - 9.5 [facility] x10(3)/[facility] LABORATORY RBC 3.31 (L) 4.58 - [facility] 5.54 [facility] x10(6)/[facility] LABORATORY Hemoglobin 9.8 (L) 13.7 - [facility] 16.5 gm/dL [facility] LABORATORY Hematocrit 30.0 (L) 40.5 - [facility] 48.5 % [facility] LABORATORY MCV 90.6 82.9 - [facility] 93.1 [facility] LABORATORY MCH 29.6 27.5 - [facility] 32.1 pg [facility] LABORATORY MCHC 32.7 32.0 - [facility] 35.7 gm/dL [facility] LABORATORY Platelets 135 (L) 145 - 357 [facility] x10(3)/[facility] RDWSD 50.8 (H) 36.0 - [facility] 45.0 [facility] RDWCV 15.4 (H) 11.4 - [facility] 13.8 % [facility] LABORATORY MPV 10.0 7.6 - 12.9 [facility] LABORATORY nRBC % Auto 0.0 % [facility] LABORATORY nRBC Abs Auto 0.000 0.000 - [facility] 0.000 [facility] x10(3)/[facility] LABORATORY Specimen Anatomical Collection Method Collection Time Receive d Time (Source) Location / / Volume Laterality Blood specimen 07/10/2017 4:28 AM 017 4:36 (specimen) EST AM EST Resulting Agency Comment Spec In Lab Yuan Webber MD HEMATOLOGY ORDERABLES Performing Organization Address City/State/[place] [address] (ABNORMAL) Basic Metabolic Panel (non-fasting) (07/10/2017 4:28 AM EST) P athologist Signature Glucose Lvl 178 65 - 199 [facility] mg/dL [facility] LABORATORY Comment: Diabetes: >=200 mg/dL plus symp toms BUN 20 10 - 20 mg/dL [facility] LABORATORY Creatinine 1.19 0.80 - 1.50 mg/dL [facility] LABORATORY Sodium 143 135 - [...] estions. Chloride 107 98 - 107 mmol/L [facility] LABORATORY CO2 21 (L) 22 - 31 mmol/L [facility] LABORATORY Anion Gap 15 5 - 15 mmol/L [facility] LABORATORY Calcium 7.4 (L) 8.5 - 10.5 mg/dL [facility] LABORATORY Estimated GFR 60 >=60 [facility] LABORATORY Comment: The reported eGFR should be multiplied b y 1.2 for patients. The MDRD is not an appropriate measure o f renal function for patients with body mass extremes or in patients with acute kidney failure. [email or web address] Specimen Anatomical Collection Method Collection Time Receive d Time (Source) Location / / Volume Laterality Blood specimen 07/10/2017 4:28 AM 017 4:36 (specimen) EST AM EST Resulting Agency Comment Spec In Lab Yuan Webber MD CHEMISTRY ORDERABLES Performing Organization Address City/State/ZIP Code Phon e Number [address] POCT Glucose (07/10/2017 4:26 AM EST) athologist Signature POC Glucose 176 65 - 199 [facility] mg/dL [facility] LABORATORY Comment: Supplemental ranges: <140 [...] [facility]/[place] [address] (ABNORMAL) POCT Glucose (07/10/2017 3:06 AM EST) athologist Signature POC Glucose 204 (H) 65 - 199 [facility] mg/dL [facility] LABORATORY Comment: Supplemental ranges: <140 [...] [facility]/[place] [address] (ABNORMAL) POCT Glucose (07/10/2017 2:10 AM EST) athologist Signature POC Glucose 203 (H) 65 - 199 [place] mg/dL [facility] LABORATORY Comment: Supplemental ranges: <140 mg/dL before meals <180 mg/dL all other times of the day Specimen Anatomical Collection Method Collection Time Receive d Time (Source) Location / / Volume Laterality Blood specimen 07/10/2017 2:10 AM 017 2:10 (specimen) EST AM EST Yuan Webber MD POINT OF CARE TEST ORDERABLE S Performing Organization Address City/State/ZIP Code Phon e Number [address] POCT Glucose (07/10/2017 1:09 AM EST) athologist Signature POC Glucose 196 65 - 199 [place] mg/dL [facility] LABORATORY Comment: Supplemental ranges: <140 mg/dL before meals <180 mg/dL all other times of the day Specimen Anatomical Collection Method Collection Time Receive d Time (Source) Location / / Volume Laterality Blood specimen 07/10/2017 1:09 AM 017 1:09 (specimen) EST AM EST Yuan Webber MD POINT OF CARE TEST ORDERABLE S Performing Organization Address City/State/[place] [address] POCT Glucose (07/10/2017 12:10 AM EST) athologist Signature POC Glucose 173 65 - 199 [place] mg/dL [facility] LABORATORY Comment: Supplemental ranges: <140 mg/dL before meals <180 mg/dL all other times of the day Specimen Anatomical Collection Method Collection Time Receive d Time (Source) Location / / Volume Laterality Blood specimen 07/10/2017 12:10 7 (specimen) AM EST 12:10 AM EST Yuan Webber MD POINT OF CARE TEST ORDERABLE S Performing Organization Address City/State/ZIP Code Phon e Number [address] POCT Glucose (07/09/2017 11:01 PM EST) athologist Signature POC Glucose 140 65 - 199 [place] mg/dL [facility] LABORATORY Comment: Supplemental ranges: <140 mg/dL before meals <180 mg/dL all other times of the day Specimen Anatomical Collection Method Collection Time Receive d Time (Source) Location / / Volume Laterality Blood specimen 07/09/2017 11:01 7 (specimen) PM EST 11:01 PM EST Yuan Webber MD POINT OF CARE TEST ORDERABLE S Performing Organization Address City/State/[place] [address] POCT Glucose (07/09/2017 10:05 PM EST) athologist Signature POC Glucose 144 65 - 199 [facility] mg/dL [facility] LABORATORY Comment: Supplemental ranges: <140 mg/dL before meals <180 mg/dL all other times of the day Specimen Anatomical Collection Method Collection Time Receive d Time (Source) Location / / Volume Laterality Blood specimen 07/09/2017 10:05 7 (specimen) PM EST 10:05 PM EST Yuan Webber MD POINT OF CARE TEST ORDERABLE S Performing Organization Address City/State/ZIP Code Phon e Number [address] POCT Glucose (07/09/2017 9:31 PM EST) athologist Signature POC Glucose 121 65 - 199 [place] mg/dL [facility] LABORATORY Comment: Supplemental ranges: <140 mg/dL before meals <180 mg/dL all other times of the day Specimen Anatomical Collection Method Collection Time Receive d Time (Source) Location / / Volume Laterality Blood specimen 07/09/2017 9:31 PM 017 9:31 (specimen) EST PM EST Yuan Webber MD POINT OF CARE TEST ORDERABLE S Performing Organization Address City/State/ZIP Code Phon e Number [address] POCT Glucose (07/09/2017 9:03 PM EST) athologist Signature POC Glucose 98 65 - 199 [place] mg/dL [facility] LABORATORY Comment: Supplemental ranges: <140 mg/dL before meals <180 mg/dL all other times of the day Specimen Anatomical Collection Method Collection Time Receive d Time (Source) Location / / Volume Laterality Blood specimen 07/09/2017 9:03 PM 017 9:03 (specimen) EST PM EST Yuan Webber MD POINT OF CARE TEST ORDERABLE S Performing Organization Address City/State/ZIP Code Phon e Number [address] POCT Glucose (07/09/2017 8:09 PM EST) athologist Signature POC Glucose 117 65 - 199 [facility] mg/dL [facility] LABORATORY Comment: Supplemental ranges: <140 mg/dL before meals <180 mg/dL all other times of the day Specimen Anatomical Collection Method Collection Time Receive d Time (Source) Location / / Volume Laterality Blood specimen 07/09/2017 8:09 PM 017 8:09 (specimen) EST PM EST Yuan Webber MD POINT OF CARE TEST ORDERABLE S Performing Organization Address City/State/ZIP Code Phon e Number [address] POCT Glucose (07/09/2017 5:40 PM EST) athologist Signature POC Glucose 155 65 - 199 [facility] mg/dL [facility] LABORATORY Comment: Supplemental ranges: <140 mg/dL before meals <180 mg/dL all other times of the day Specimen Anatomical Collection Method Collection Time Receive d Time (Source) Location / / Volume Laterality Blood specimen 07/09/2017 5:40 PM 017 5:40 (specimen) EST PM EST Yuan Webber MD POINT OF CARE TEST ORDERABLE S Performing Organization Address City/State/ZIP Code Phon e Number [address] POCT Glucose (07/09/2017 4:24 PM EST) athologist Signature POC Glucose 164 65 - 199 [facility] mg/dL [facility] LABORATORY Comment: Supplemental ranges: <140 mg/dL before meals <180 mg/dL all other times of the day Specimen Anatomical Collection Method Collection Time Receive d Time (Source) Location / / Volume Laterality Blood specimen 07/09/2017 4:24 PM 017 4:24 (specimen) EST PM EST Yuan Webber MD POINT OF CARE TEST ORDERABLE S Performing Organization Address City/State/[place] [address] POCT Glucose (07/09/2017 3:19 PM EST) athologist Signature POC Glucose 166 65 - 199 [place] mg/dL [facility] LABORATORY Comment: Supplemental ranges: <140 mg/dL before meals <180 mg/dL all other times of the day Specimen Anatomical Collection Method Collection Time Receive d Time (Source) Location / / Volume Laterality Blood specimen 07/09/2017 3:19 PM 017 3:19 (specimen) EST PM EST Yuan Webber MD POINT OF CARE TEST ORDERABLE S Performing Organization Address City/State/[place] [address] POCT Glucose (07/09/2017 2:26 PM EST) athologist Signature POC Glucose 179 65 - 199 [place] mg/dL [facility] LABORATORY Comment: Supplemental ranges: <140 mg/dL before meals <180 mg/dL all other times of the day Specimen Anatomical Collection Method Collection Time Receive d Time (Source) Location / / Volume Laterality Blood specimen 07/09/2017 2:26 PM 017 2:26 (specimen) EST PM EST Yuan Webber MD POINT OF CARE TEST ORDERABLE S Performing Organization Address City/State/[place] [address] (ABNORMAL) POCT Glucose (07/09/2017 1:29 PM EST) athologist Signature POC Glucose 210 (H) 65 - 199 [place] mg/dL [facility] LABORATORY Comment: Supplemental ranges: <140 mg/dL before meals <180 mg/dL all other times of the day Specimen Anatomical Collection Method Collection Time Receive d Time (Source) Location / / Volume Laterality Blood specimen 07/09/2017 1:29 PM 017 1:29 (specimen) EST PM EST Yuan Webber MD POINT OF CARE TEST ORDERABLE S Performing Organization Address City/State/ZIP Code Phon e Number [address] POCT Glucose (07/09/2017 12:20 PM EST) P athologist Signature POC Glucose 172 65 - 199 [facility] mg/dL [facility] LABORATORY Comment: Supplemental ranges: <140 mg/dL before meals <180 mg/dL all other times of the day Specimen Anatomical Collection Method Collection Time Receive d Time (Source) Location / / Volume Laterality Blood specimen 07/09/2017 12:20 7 (specimen) PM EST 12:20 PM EST Yuan Webber MD POINT OF CARE TEST ORDERABLE S Performing Organization Address City/State/[place] [address] POCT Glucose (07/09/2017 11:24 AM EST) athologist Signature POC Glucose 156 65 - 199 [facility] mg/dL [facility] LABORATORY Comment: Supplemental ranges: <140 mg/dL before meals <180 mg/dL all other times of the day Specimen Anatomical Collection Method Collection Time Receive d Time (Source) Location / / Volume Laterality Blood specimen 07/09/2017 11:24 7 (specimen) AM EST 11:24 AM EST Yuan Webber MD POINT OF CARE TEST ORDERABLE S Performing Organization Address City/State/ZIP Code Phon e Number [address] POCT Glucose (07/09/2017 11:11 AM EST) P athologist Signature POC Glucose 172 65 - 199 [facility] mg/dL [facility] LABORATORY Comment: Supplemental ranges: <140 mg/dL before meals <180 mg/dL all other times of the day Specimen Anatomical Collection Method Collection Time Receive d Time (Source) Location / / Volume Laterality Blood specimen 07/09/2017 11:11 7 (specimen) AM EST 11:11 AM EST Yuan Webber MD POINT OF CARE TEST ORDERABLE S Performing Organization Address City/State/ZIP Code Phon e Number [address] POCT Glucose (07/09/2017 10:08 AM EST) P athologist Signature POC Glucose 176 65 - 199 [place] mg/dL [facility] LABORATORY Comment: Supplemental ranges: <140 mg/dL before meals <180 mg/dL all other times of the day Specimen Anatomical Collection Method Collection Time Receive d Time (Source) Location / / Volume Laterality Blood specimen 07/09/2017 10:08 7 (specimen) AM EST 10:08 AM EST Yuan Webber MD POINT OF CARE TEST ORDERABLE S Performing Organization Address City/State/[place] [address] POCT Glucose (07/09/2017 8:02 AM EST) P athologist Signature POC Glucose 178 65 - 199 [place] mg/dL [facility] LABORATORY Comment: Supplemental ranges: <140 mg/dL before meals <180 mg/dL all other times of the day Specimen Anatomical Collection Method Collection Time Receive d Time (Source) Location / / Volume Laterality Blood specimen 07/09/2017 8:02 AM 017 8:02 (specimen) EST AM EST Yuan Webber MD POINT OF CARE TEST ORDERABLE S Performing Organization Address City/State/[place] [address] (ABNORMAL) BLOOD GAS 2 ARTERIAL (07/09/2017 5:37 AM EST) Analysis Performed At Patho logist Time Signature pH Art 7.36 7.35 - [facility] 7.45 [facility] LABORATORY pCO2 Art 38 35 - 45 [facility] mmHg [facility] LABORATORY pO2 Art 79 (L) 85 - 104 [facility] LABORATORY HCO3 Art 20.9 20.0 - [facility] 26.0 [facility] mmol/L [facility] LABORATORY BE Art -4.6 (L) -3.0 - 3.0 [facility] mmol/L [facility] LABORATORY Hgb Blood Gas 10.5 (L) 13.7 - [facility] 16.5 gm/dL [facility] LABORATORY O2HB Art 93.8 (L) 94.0 - [facility] 97.0 % [facility] LABORATORY COHB Art 0.3 % [facility] LABORATORY Comment: Nonsmokers: 0.5-1.5% COHB Smokers: Variable, but usually less than 10% Toxic: 20-30% COHB Lethal: Greater than 60% COHB METHB Art 0.6 <=1.5 % [facility] LABORATORY Na Whole Blood 141 135 - 145 mmol/L [facility] LABORATORY K Whole Blood 4.5 3.5 - 5.0 mmol/L [facility] LABORATORY Comment: Please note: Patients with WBC >100,000 may have falsely elevated Potassium levels. Contact the Clinical Chemistry L aboratory if there are any questions. ICa Whole Blood 1.01 (L) 1.15 - 1.33 mmol/L [facility] LABORATORY Comment: Note: ??Total bilirubin higher than 20 m g/dL may lead to falsely low ionized calcium. CL Whole Blood 113 (H) 98 - 107 mmol/L [facility] LABORATORY Gluc Whole Bld 175 65 - 199 mg/dL [facility] LABORATORY Comment: Diabetes: >=200 mg/dL plus symp toms. Lactate WB 1.0 0.5 - 2.2 mmol/L [facility] LABORATORY FIO2 Art 40 % [facility] LABORATORY PF Ratio Art 198 [facility] LABORATORY Specimen Anatomical Collection Method Collection Time Receive d Time (Source) Location / / Volume Laterality Blood specimen 07/09/2017 5:37 AM 017 5:37 (specimen) EST AM EST Yuan Webber MD CHEMISTRY ORDERABLES Performing Organization Address City/State/Z[place] [address] POCT Glucose (07/09/2017 3:27 AM EST) athologist Signature POC Glucose 192 65 - 199 [facility] mg/dL [facility] LABORATORY Comment: Supplemental ranges: <140 mg/dL before meals <180 mg/dL all other times of the day Specimen Anatomical Collection Method Collection Time Receive d Time (Source) Location / / Volume Laterality Blood specimen 07/09/2017 3:27 AM 017 3:27 (specimen) EST AM EST Yuan Webber MD POINT OF CARE TEST ORDERABLE S Performing Organization Address City/State/Z[place] [address] (ABNORMAL) Basic Metabolic Panel (non-fasting) (07/09/2017 2:30 AM EST) athologist Signature Glucose Lvl 179 65 - 199 [facility] mg/dL [facility] LABORATORY Comment: Diabetes: >=200 mg/dL plus symp toms BUN 17 10 - 20 mg/dL [facility] LABORATORY Creatinine 1.34 0.80 - 1.50 mg/dL [facility] LABORATORY Sodium 144 135 - [...] Chloride 111 (H) 98 - 107 mmol/L [facility] LABORATORY CO2 21 (L) 22 - 31 mmol/L [facility] LABORATORY Anion Gap 12 5 - 15 mmol/L [facility] LABORATORY Calcium 7.1 (L) 8.5 - 10.5 mg/dL [facility] LABORAT[facility] Comment: result rechecked-JLK Estimated GFR 53 (L) >=60 [facility]ORATORY Comment: The reported eGFR should be multiplied b y 1.2 for patients. The MDRD is not an appropriate measure o f renal function for patients with body mass extremes or in patients with acute kidney failure. [email or web address] Specimen Anatomical Collection Method Collection Time Receive d Time (Source) Location / / Volume Laterality Blood specimen Venous Draw / 07/09/2017 2:30 AM 2016 2:42 (specimen) Unknown EST AM EST Resulting Agency Comment Spec In Lab Yuan Webber MD CHEMISTRY ORDERABLES Performing Organization Address City/[facility] [place] [address] (ABNORMAL) Potassium (07/09/2017 2:30 AM EST) P athologist Signature Potassium 5.1 (H) 3.5 - 5.0 [facility] mmol/L [facility] LABORATORY Comment: Please note: ??Patients [...] Webber MD CHEMISTRY ORDERABLES Performing Organization Address City/[facility] [place] [address] (ABNORMAL) Hemogram (07/09/2017 2:30 AM EST) Analysis Performed At Patho logist Time Signature WBC 12.5 (H) 4.0 - 9.5 [place] RYAN x10(3)/[facility] LABORATORY RBC 3.38 (L) 4.58 - K[place]INA RYAN 5.54 [facility] x10(6)/[facility] LABORATORY Hemoglobin 10.1 (L) 13.7 - KATALINA RYAN 16.5 gm/dL [facility] LABORATORY Hematocrit 30.3 (L) 40.5 - K[place]ALINA RYAN 48.5 % [facility] LABORATORY MCV 89.6 82.9 - KATALINA DAVIS 93.1 [facility] LABORATORY MCH 29.9 27.5 - [place] OLIVASCK 32.1 pg [facility] LABORATORY MCHC 33.3 32.0 - [place] OLIVASCK 35.7 gm/dL [facility] LABORATORY Platelets 127 (L) 145 - 357 [facility] x10(3)/[facility] LABORATORY RDWSD 49.3 (H) 36.0 - KATALINA DAVIS 45.0 [facility] LABORATORY RDWCV 15.2 (H) 11.4 - KATALINA DAVIS 13.8 % [facility] LABORATORY MPV 9.9 7.6 - 12.9 KATALINA DAVIS [facility] LABORATORY nRBC % Auto 0.0 % [facility] LABORATORY nRBC Abs Auto 0.000 0.000 - [place]INA ZHAORYAN 0.000 [facility] x10(3)/[facility] LABORATORY Specimen Anatomical Collection Method Collection Time Receive d Time (Source) Location / / Volume Laterality Blood specimen 07/09/2017 2:30 AM 017 2:41 (specimen) EST AM EST Resulting Agency Comment Spec In Lab Yuan Webber MD HEMATOLOGY ORDERABLES Performing Organization Address City/[facility]/ZIP Code Phon e Number [address] POCT Glucose (07/09/2017 2:10 AM EST) athologist Signature POC Glucose 169 65 - 199 [facility] mg/dL [facility] LABORATORY Comment: Supplemental ranges: <140 [...] [facility]/ZIP Code Phon e Number [address] POCT Glucose (07/09/2017 1:01 AM EST) athologist Signature POC Glucose 173 65 - 199 K[place]ALINA RYAN mg/dL [facility] LABORATORY Comment: Supplemental ranges: <140 [...] [facility]/[place] [address] Blood culture (07/09/2017 12:40 AM EST) Patholo gist Method Time Signature Blood Culture No growth KATALINA DAVIS at 5 days. [facility] LABORATORY Specimen Anatomical Collection Method Collection Time Receive d Time (Source) Location / / Volume Laterality Blood specimen STRUCTURE OF RIGHT 07/09/2017 12:40 3:58 (specimen) UPPER LIMB / AM EST AM EST Unknown Resulting Agency Comment Spec In Lab Yuan Webber MD MICROBIOLOGY - BLOOD ORDERAB LES Performing Organization Address City/[facility]/[place] [address] Blood culture (07/09/2017 12:30 AM EST) Patholo gist Method Time Signature Blood Culture No growth KATALINA DAVIS at 5 days. [facility] LABORATORY Specimen Anatomical Collection Method Collection Time Receive d Time (Source) Location / / Volume Laterality Blood specimen STRUCTURE OF LEFT 07/09/2017 12:30 1211/2016 3:59 (specimen) UPPER LIMB / AM EST AM EST Unknown Resulting Agency Comment Spec In Lab Yuan Webber MD MICROBIOLOGY - BLOOD ORDERAB LES Performing Organization Address City/[facility]/[place] [address] (ABNORMAL) Urinalysis Microscopic Exam (07/09/2017 12:05 AM EST) Analysis Performed At Patho logist Time Signature RBC UA 32 (H) 0 - 3 /HPF [facility] LABORATORY WBC UA 5 (H) 0 - 3 /HPF [facility] LABORATORY Squam Epith UA <1 <=4 /HPF [facility]ORAT[facility] Hyaline Cast 17 (H) 0 - 2 /LPF [facility] LABORATORY Gran Cast UA 1 (H) <=0 /LPF [facility] LABORATORY Uric Ac Bianca Rare (A) None /HPF [facility] LABORATORY Specimen (Source) Anatomical Collection Method Collection Time Re ceived Time Location / / Volume Laterality Urine specimen 07/09/2017 12:05 7 obtained via AM EST 12:39 AM EST indwelling urinary catheter (specimen) Resulting Agency Comment Spec In Lab Yuan Webber MD URINE ORDERABLES Performing Organization Address City/State/[place] [address] (ABNORMAL) Urinalysis with reflex Culture (07/09/2017 12:05 AM EST) [facility] gist Method Time Signature Glucose UA Negative Negative [facility] mg/dL [facility] LABORATORY Protein UA 30 (A) Negative [facility] mg/dL [facility] LABORATORY Bilirubin UA Negative Negative [facility] mg/dL [facility] LABORATORY Comment: Clinical correlation required for positi ve Urine Bilirubin results as false positive may occur with some drugs and d rug related products. If a false positive is suspected a serum total bili yeager should be considered if clinically indicated. Urobilinogen UA Normal Normal mg/dL [facility] LABORATORY pH UA 5.0 5.0 - 8.0 [facility] LABORATORY Blood UA Moderate (A) Negative mg/dL [facility] LABORATORY Ketones UA Negative Negative mg/dL [facility] Nitrite UA Negative Negative [facility] LABORATORY Leukocytes UA Negative Negative [facility] LABORATORY Appearance UA Hazy (A) Clear [facility] LABORATORY Spec Brownell UA 1.025 1.002 - 1.030 [facility] LABORATORY Color UA Yellow Yellow [facility] LABORATORY Culture Reflexed No [facility] LABOR[facility] Specimen (Source) Anatomical Collection Method Collection Time Re ceived Time Location / / Volume Laterality Urine specimen 07/09/2017 12:05 7 obtained via AM EST 12:39 AM EST indwelling urinary catheter (specimen) Resulting Agency Comment Spec In Lab Yuan Webber MD URINE ORDERABLES Performing Organization Address City/[facility]/ZIP Code Phon e Number [address] POCT Glucose (07/08/2017 11:01 PM EST) P athologist Signature POC Glucose 191 65 - 199 [facility] mg/dL [facility] LABORATORY Comment: Supplemental ranges: <140 [...] [facility]/[place] [address] POCT Glucose (07/08/2017 10:04 PM EST) P athologist Signature POC Glucose 198 65 - 199 [facility] mg/dL [facility] LABORATORY Comment: Supplemental ranges: <140 [...] [facility]/[place] [address] Prepare Albumin 5% in 250 mL (07/08/2017 8:49 PM EST) P athologist Signature Dispensed? Yes [facility] LABOR[facility] Specimen Anatomical Collection Method Collection Time Receive d Time (Source) Location / / Volume Laterality Blood specimen No Charge / 07/08/2017 8:49 PM 017 8:51 (specimen) Unknown EST PM EST Resulting Agency Comment Spec In Lab [facility] ORDERABLES Performing Organization Address City/State/[place] [address] POCT Glucose (07/08/2017 8:28 PM EST) athologist Signature POC Glucose 195 65 - 199 K[place]ALINA RYAN mg/dL [facility] LABORATORY Comment: Supplemental ranges: <140 [...] [facility]/[place] [address] (ABNORMAL) POCT Glucose (07/08/2017 7:13 PM EST) athologist Signature POC Glucose 220 (H) 65 - 199 K[place]ALINA ZHAORYAN mg/dL [facility] LABORATORY Comment: Supplemental ranges: <140 [...] [facility]/[place] [address] POCT Glucose (07/08/2017 5:04 PM EST) athologist Signature POC Glucose 147 65 - 199 K[place]ALINA RYAN mg/dL [facility] LABORATORY Comment: Supplemental ranges: <140 mg/dL before meals <180 mg/dL all other times of the day Specimen Anatomical Collection Method Collection Time Receive d Time (Source) Location / / Volume Laterality Blood specimen 07/08/2017 5:04 PM 017 5:04 (specimen) EST PM EST Yuan Webber MD POINT OF CARE TEST ORDERABLE S Performing Organization Address City/State/[place] [address] (ABNORMAL) BLOOD GAS 2 ARTERIAL (07/08/2017 4:13 PM EST) Analysis Performed At Patho logist Time Signature pH Art 7.38 7.35 - [facility] 7.45 [facility] LABORATORY pCO2 Art 36 35 - 45 [facility] mmHg [facility] LABORATORY pO2 Art 91 85 - 104 [facility] mmHg [facility] LABORATORY HCO3 Art 20.9 20.0 - [facility] 26.0 [facility] mmol/L [facility] LABORATORY BE Art -4.2 (L) -3.0 - 3.0 [facility] mmol/L [facility] LABORATORY Hgb Blood Gas 11.7 (L) 13.7 - [facility] 16.5 gm/dL [facility] LABORATORY O2HB Art 95.1 94.0 - [facility] 97.0 % [facility] LABORATORY COHB Art 0.6 % [facility] LABORATORY Comment: Nonsmokers: 0.5-1.5% COHB Smokers: Variable, but usually less than 10% Toxic: 20-30% COHB Lethal: Greater than 60% COHB METHB Art 0.6 <=1.5 % [facility] LABORATORY Na Whole Blood 139 135 - 145 mmol/L [facility]OR[facility] K Whole Blood 4.2 3.5 - 5.0 mmol/L [facility] LABOR[facility]ORY Comment: Please note: Patients with WBC >100,000 may have falsely elevated Potassium levels. Contact the Clinical Chemistry L aboratory if there are any questions. ICa Whole Blood 1.05 (L) 1.15 - 1.33 mmol/L [facility] LABORATORY Comment: Note: ??Total bilirubin higher than 20 m g/dL may lead to falsely low ionized calcium. CL Whole Blood 110 (H) 98 - 107 mmol/L [facility] LABORATORY Gluc Whole Bld 155 65 - 199 mg/dL [facility] LABORATORY Comment: Diabetes: >=200 mg/dL plus symp toms. Lactate WB 1.4 0.5 - 2.2 mmol/L [facility] LABORATORY FIO2 Art 40 % [facility] LABORAT[facility] PF Ratio Art 228 [facility] LABORATORY Specimen Anatomical Collection Method Collection Time Receive d Time (Source) Location / / Volume Laterality Blood specimen 07/08/2017 4:13 PM 017 4:13 (specimen) EST PM EST Yuan Webber MD CHEMISTRY ORDERABLES Performing Organization Address City/State/[place] [address] POCT Glucose (07/08/2017 4:01 PM EST) athologist Signature POC Glucose 148 65 - 199 [facility] mg/dL [facility] LABORATORY Comment: Supplemental ranges: <140 mg/dL before meals <180 mg/dL all other times of the day Specimen Anatomical Collection Method Collection Time Receive d Time (Source) Location / / Volume Laterality Blood specimen 07/08/2017 4:01 PM 017 4:01 (specimen) EST PM EST Yuan Webber MD POINT OF CARE TEST ORDERABLE S Performing Organization Address City/State/ZIP Code Phon e Number [address] POCT Glucose (07/08/2017 3:21 PM EST) athologist Signature POC Glucose 118 65 - 199 [place] RYAN mg/dL [facility] LABORATORY Comment: Supplemental ranges: <140 mg/dL before meals <180 mg/dL all other times of the day Specimen Anatomical Collection Method Collection Time Receive d Time (Source) Location / / Volume Laterality Blood specimen 07/08/2017 3:21 PM 017 3:21 (specimen) EST PM EST Yuan Webber MD POINT OF CARE TEST ORDERABLE S Performing Organization Address City/State/ZIP Code Phon e Number [address] POCT Glucose (07/08/2017 2:01 PM EST) athologist Signature POC Glucose 129 65 - 199 [facility] mg/dL [facility] LABORATORY Comment: Supplemental ranges: <140 mg/dL before meals <180 mg/dL all other times of the day Specimen Anatomical Collection Method Collection Time Receive d Time (Source) Location / / Volume Laterality Blood specimen 07/08/2017 2:01 PM 017 2:01 (specimen) EST PM EST Yuan Webber MD POINT OF CARE TEST ORDERABLE S Performing Organization Address City/State/ZIP Code Phon e Number [address] POCT Glucose (07/08/2017 11:53 AM EST) athologist Signature POC Glucose 156 65 - 199 [place] RYAN mg/dL [facility] LABORATORY Comment: Supplemental ranges: <140 mg/dL before meals <180 mg/dL all other times of the day Specimen Anatomical Collection Method Collection Time Receive d Time (Source) Location / / Volume Laterality Blood specimen 07/08/2017 11:53 7 (specimen) AM EST 11:53 AM EST Yuan Webber MD POINT OF CARE TEST ORDERABLE S Performing Organization Address City/State/[place] [address] POCT Glucose (07/08/2017 11:04 AM EST) athologist Signature POC Glucose 181 65 - 199 K[place]AL[place] RYAN mg/dL [facility] LABORATORY Comment: Supplemental ranges: <140 mg/dL before meals <180 mg/dL all other times of the day Specimen Anatomical Collection Method Collection Time Receive d Time (Source) Location / / Volume Laterality Blood specimen 07/08/2017 11:04 7 (specimen) AM EST 11:04 AM EST Yuan Webber MD POINT OF CARE TEST ORDERABLE S Performing Organization Address City/State/[place] [address] (ABNORMAL) POCT Glucose (07/08/2017 9:24 AM EST) P athologist Signature POC Glucose 203 (H) 65 - 199 K[place]ALINA RYAN mg/dL [facility] LABORATORY Comment: Supplemental ranges: <140 [...] [facility]/[place] [address] APTT (07/08/2017 8:40 AM EST) P athologist Signature PTT 33 25 - 35 sec [facility] [...] Webber MD HEMATOLOGY ORDERABLES Performing Organization Address City/[facility]/[place] [address] (ABNORMAL) Prothrombin Time (07/08/2017 8:40 AM EST) P athologist Signature PT 15.6 (H) 11.8 - 14.0 [facility] LABORATORY INR 1.3 (H) 0.9 - 1.1 [facility] [...] Organization Address City/State/[place] [address] (ABNORMAL) POCT Glucose (07/08/2017 7:38 AM EST) athologist Signature POC Glucose 232 (H) 65 - 199 [facility] mg/dL [facility] LABORATORY Comment: Supplemental ranges: <140 [...] [facility]/[place] [address] (ABNORMAL) POCT Glucose (07/08/2017 7:07 AM EST) athologist Signature POC Glucose 234 (H) 65 - 199 [facility] mg/dL [facility] LABORATORY Comment: Supplemental ranges: <140 [...] [facility]/[place] [address] (ABNORMAL) POCT Glucose (07/08/2017 6:04 AM EST) athologist Signature POC Glucose 225 (H) 65 - 199 [facility] RYAN mg/dL [facility] LABORATORY Comment: Supplemental ranges: <140 mg/dL before meals <180 mg/dL all other times of the day Specimen Anatomical Collection Method Collection Time Receive d Time (Source) Location / / Volume Laterality Blood specimen 07/08/2017 6:04 AM 017 6:04 (specimen) EST AM EST Yuan Webber MD POINT OF CARE TEST ORDERABLE S Performing Organization Address City/State/[place] [address] (ABNORMAL) POCT Glucose (07/08/2017 5:31 AM EST) P athologist Signature POC Glucose 216 (H) 65 - 199 [facility] mg/dL [facility] LABORATORY Comment: Supplemental ranges: <140 [...] [facility]/[place] [address] (ABNORMAL) POCT Glucose (07/08/2017 4:52 AM EST) P athologist Signature POC Glucose 257 (H) 65 - 199 [facility] mg/dL [facility] LABORATORY Comment: Supplemental ranges: <140 mg/dL before meals <180 mg/dL all other times of the day Specimen Anatomical Collection Method Collection Time Receive d Time (Source) Location / / Volume Laterality Blood specimen 07/08/2017 4:52 AM 017 4:52 (specimen) EST AM EST Daphne Shahid MD POINT OF CARE TEST ORDERABLE S Performing Organization Address City/State/[place] [address] (ABNORMAL) BLOOD GAS 2 ARTERIAL (07/08/2017 4:04 AM EST) Analysis Performed At Patho logist Time Signature pH Art 7.30 (L) 7.35 - [facility] 7.45 [facility] LABORATORY pCO2 Art 41 35 - 45 [facility] LABORATORY pO2 Art 83 (L) 85 - 104 [facility] LABORATORY HCO3 Art 19.6 (L) 20.0 - [facility] 26.0 [facility] mmol/L HOSPITAL LABORATORY BE Art -6.8 (L) -3.0 - 3.0 [facility] mmol/L [facility] LABORATORY Hgb Blood Gas 12.2 (L) 13.7 - [facility] 16.5 gm/dL [facility] LABORATORY O2HB Art 93.5 (L) 94.0 - [facility] 97.0 % [facility] LABORATORY COHB Art 0.4 % [facility] LABORATORY Comment: Nonsmokers: 0.5-1.5% COHB Smokers: Variable, but usually less than 10% Toxic: 20-30% COHB Lethal: Greater than 60% COHB METHB Art 0.8 <=1.5 % [facility] LABORATORY Na Whole Blood 138 135 - 145 mmol/L [facility] K Whole Blood 4.4 3.5 - 5.0 mmol/L [facility] LAB[facility] Comment: Please note: Patients with WBC >100,000 may have falsely elevated Potassium levels. Contact the Clinical Chemistry L aboratory if there are any questions. ICa Whole Blood 1.05 (L) 1.15 - 1.33 mmol/L [facility] LABORATORY Comment: Note: ??Total bilirubin higher than 20 m g/dL may lead to falsely low ionized calcium. CL Whole Blood 107 98 - 107 mmol/L [facility] LABORATORY Gluc Whole Bld 274 (H) 65 - 199 mg/dL [facility] LABORATORY Comment: Diabetes: >=200 mg/dL plus symp toms. Lactate WB 4.4 (Critical) 0.5 - 2.2 mmol/L [facility] LABORATORY Comment: Noted by band instrument repairer. FIO2 Art 40 % [facility] LABORATORY PF Ratio Art 208 [facility] LABORATORY Specimen Anatomical Collection Method Collection Time Receive d Time (Source) Location / / Volume Laterality Blood specimen 07/08/2017 4:04 AM 017 4:04 (specimen) EST AM EST Daphne Shahid MD CHEMISTRY ORDERABLES Performing Organization Address City/State/[place] [address] Scan, Peripheral Blood (07/08/2017 4:00 AM EST) P athologist Signature Plat Estimate Normal [facility]ORATORY RBC Morphology Normal [facility] LABORATORY Specimen Anatomical Collection Method Collection Time Receive d Time (Source) Location / / Volume Laterality Blood specimen 07/08/2017 4:00 AM 017 4:09 (specimen) EST AM EST Resulting Agency Comment Spec In Lab Yuan Webber MD HEMATOLOGY ORDERABLES Performing Organization Address City/State/[place] [address] (ABNORMAL) Differential, Automated (07/08/2017 4:00 AM EST) Patholo gist Method Time Signature Neutrophils % 85.4 % [facility] LABORATORY Neutr Abs (ANC) 16.07 (H) 1.70 - [facility] 6.10 [facility] x10(3)/[facility] LABORATORY Lymphocytes % 3.5 % [facility] LABORATORY Lymphocytes Abs 0.6 (L) 0.9 - 3.2 [facility] x10(3)/[facility] LABORATORY Monocytes % 10.4 % [facility] LABORATORY Monocyte Abs 2.0 (H) 0.3 - 0.9 [facility] x10(3)/[facility] LABORATORY Eosinophils % 0.0 % [facility] LABORATORY Eosinophils Abs 0.0 0.0 - 0.4 [facility] x10(3)/[facility] LABORATORY Basophils % 0.1 % [facility] LABORATORY Basophils Abs 0.0 0.0 - 0.1 [facility] x10(3)/[facility] LABORATORY Immature Gran % 0.60 % [facility] Comment: Immature granulocytes(IG's)percentage an d absolute count will include metamyelocytes, myelocytes, and promyelo cytes. Blood smears from CBCs yielding IG's will be scanned manually for concor dance. If this scan disagrees with the automated IG or if promyelocytes are not ed, a manual differential will be performed. Melisa Gran Abs 0.12 (H) 0.00 - 0.04 x10(3)/[facility] LABORATORY Specimen Anatomical Collection Method Collection Time Receive d Time (Source) Location / / Volume Laterality Blood specimen 07/08/2017 4:00 AM 017 4:09 (specimen) EST AM EST Resulting Agency Comment Spec In Lab Yuan Webber MD HEMATOLOGY ORDERABLES Performing Organization Address City/State/[place] [address] (ABNORMAL) Hemogram (07/08/2017 4:00 AM EST) Analysis Performed At Patho logist Time Signature WBC 18.8 (H) 4.0 - 9.5 [facility] x10(3)/[facility] LABORATORY RBC 4.00 (L) 4.58 - [facility] 5.54 [facility] x10(6)/[facility] LABORATORY Hemoglobin 11.9 (L) 13.7 - [facility] 16.5 gm/dL [facility] LABORATORY Hematocrit 35.9 (L) 40.5 - [facility] 48.5 % [facility] LABORATORY MCV 89.8 82.9 - [facility] 93.1 [facility] LABORATORY MCH 29.8 27.5 - [facility] 32.1 pg [facility] LABORATORY MCHC 33.1 32.0 - [facility] 35.7 gm/dL [facility] LABORATORY Platelets 232 145 - 357 [facility] [facility] x10(3)/[facility] LABORATORY RDWSD 47.6 (H) 36.0 - [facility] 45.0 [facility] LABORATORY RDWCV 14.5 (H) 11.4 - [facility] 13.8 % [facility] LABORATORY MPV 9.5 7.6 - 12.9 [facility] LABORATORY nRBC % Auto 0.0 % [facility] LABORATORY nRBC Abs Auto 0.000 0.000 - [facility] 0.000 [facility] x10(3)/[facility] LABORATORY Specimen Anatomical Collection Method Collection Time Receive d Time (Source) Location / / Volume Laterality Blood specimen 07/08/2017 4:00 AM 017 4:09 (specimen) EST AM EST Resulting Agency Comment Spec In Lab Yuan Webber MD HEMATOLOGY ORDERABLES Performing Organization Address City/[facility]/[place] [address] (ABNORMAL) Electrolytes panel (07/08/2017 4:00 AM EST) athologist Signature Sodium 139 135 - 145 [facility] mmol/L [facility] LABORATORY Potassium 4.7 3.5 - 5.0 [facility] mmol/L [facility] LABORATORY Comment: result rechecked-JLK Please note: ??Patients with WBC >100,00 0 may have falsely elevated Potassium levels. ??For accurate Potassium quantif ication in these patients send serum separator tube (gold top) for subsequent determinations. ??Contact the Clinical Chemistry Laboratory if there are any qu estions. Chloride 104 98 - 107 mmol/L [facility] LABORATORY CO2 21 (L) 22 - 31 mmol/L [facility] LABORATORY Anion Gap 14 5 - 15 mmol/L [facility] LABORATORY Specimen Anatomical Collection Method Collection Time Receive d Time (Source) Location / / Volume Laterality Blood specimen 07/08/2017 4:00 AM 017 4:10 (specimen) EST AM EST Resulting Agency Comment Spec In Lab Yuan Webber MD CHEMISTRY ORDERABLES Performing Organization Address City/[facility]/[place] [address] (ABNORMAL) Cardiac Enzymes (LEB/CGP) (07/08/2017 4:00 AM EST) athologist [facility] Troponin-T 1.88 (H) 0.00 - [facility] 0.00 ng/mL [facility] LABORATORY Comment: The 99th percentile for Troponin T is le ss than 0.01 ng/mL, any detectable cTnT concentration using this assay should be considered elevated. According to the third universal definit ion of myocardial infarction the following criteria with a clinical prese ntation consistent with acute myocardial ischemia meets the diagnosis for a myocardial infarction (SC). Detection of a rise and/or fall of [...] additional sample may be indicated. Reference: Third Pollock Definition of Myocardial Infarction. Journal of the [employer] 2012;60:1581-98 CK, Total 413 (H) 0 - 200 unit/L [facility] LABORATORY Comment: result rechecked-AYDIN Specimen Anatomical Collection Method Collection Time Receive d Time (Source) Location / / Volume Laterality Blood specimen 07/08/2017 4:00 AM 017 4:09 (specimen) EST AM EST Resulting Agency Comment Spec In Lab Yuan Webber MD CHEMISTRY ORDERABLES Performing Organization Address City/State/[place] [address] (ABNORMAL) Glucose, fasting (07/08/2017 4:00 AM EST) athologist Signature Glucose 287 (H) 65 - 99 [facility] Fasting mg/dL [facility] LABORATORY Comment: ?Fasting* Glucose Interpretive [...] of Diabetes Mellitus, Position Statement from the [place] [employer]. ??Diabete s Care, Volume 33, Supplement 1, Jul 2009 Specimen Anatomical Collection Method Collection Time Receive d Time (Source) Location / / Volume Laterality Blood specimen 07/08/2017 4:00 AM 017 4:09 (specimen) EST AM EST Resulting Agency Comment Spec In Lab Yuan Webber MD CHEMISTRY ORDERABLES Performing Organization Address City/State/[place] [address] (ABNORMAL) Creatinine (07/08/2017 4:00 AM EST) Analysis Performed At Patho logist Time Signature Creatinine 1.55 (H) 0.80 - [facility] 1.50 mg/dL [facility] LABORATORY Estimated GFR 44 (L) >=60 [facility] LABORATORY Comment: The reported eGFR should be multiplied b y 1.2 for patients. The MDRD is not an appropriate measure o f renal function for patients with body mass extremes or in patients with acute kidney failure. http://[employer]/DHnkdep http://[employer]/DHMCnkf Specimen Anatomical Collection Method Collection Time Receive d Time (Source) Location / / Volume Laterality Blood specimen 07/08/2017 4:00 AM 017 4:09 (specimen) EST AM EST Resulting Agency Comment Spec In Lab Yuan Webber MD CHEMISTRY ORDERABLES Performing Organization Address City/State/[place] [address] BUN (07/08/2017 4:00 AM EST) P athologist Signature BUN 16 10 - 20 [facility] mg/dL [facility] LABORATORY Specimen Anatomical Collection Method Collection Time Receive d Time (Source) Location / / Volume Laterality Blood specimen 07/08/2017 4:00 AM 017 4:09 (specimen) EST AM EST Resulting Agency Comment Spec In Lab Yuan Webber MD CHEMISTRY ORDERABLES Performing Organization Address City/[facility]/[place] [address] (ABNORMAL) POCT Glucose (07/08/2017 3:00 AM EST) P athologist Signature POC Glucose 273 (H) 65 - 199 [facility] mg/dL [facility] LABORATORY Comment: Supplemental ranges: <140 mg/dL before meals <180 mg/dL all other times of the day Specimen Anatomical Collection Method Collection Time Receive d Time (Source) Location / / Volume Laterality Blood specimen 07/08/2017 3:00 AM 017 3:00 (specimen) EST AM EST Daphne Shahid MD POINT OF CARE TEST ORDERABLE S Performing Organization Address City/State/[place] [address] (ABNORMAL) POCT Glucose (07/08/2017 1:57 AM EST) athologist Signature POC Glucose 288 (H) 65 - 199 [facility] mg/dL [facility] LABORATORY Comment: Supplemental ranges: <140 mg/dL before meals <180 mg/dL all other times of the day Specimen Anatomical Collection Method Collection Time Receive d Time (Source) Location / / Volume Laterality Blood specimen 07/08/2017 1:57 AM 017 1:57 (specimen) EST AM EST Daphne Shahid MD POINT OF CARE TEST ORDERABLE S Performing Organization Address City/State/[place] [address] (ABNORMAL) POCT Glucose (07/08/2017 1:01 AM EST) athologist Signature POC Glucose 315 (H) 65 - 199 [facility] mg/dL [facility] LABORATORY Comment: Supplemental ranges: <140 mg/dL before meals <180 mg/dL all other times of the day Specimen Anatomical Collection Method Collection Time Receive d Time (Source) Location / / Volume Laterality Blood specimen 07/08/2017 1:01 AM 017 1:01 (specimen) EST AM EST Daphne Shahid MD POINT OF CARE TEST ORDERABLE S Performing Organization Address City/State/[place] [address] (ABNORMAL) BLOOD GAS 2 ARTERIAL (07/08/2017 12:09 AM EST) athologist Signature pH Art 7.26 7.35 - [facility] (Critical) 7.45 [facility] LABORATORY Comment: Noted by band instrument repairer. pCO2 Art 41 35 - 45 mmHg [facility] LABORATORY pO2 Art 96 85 - 104 mmHg [facility] LABORATORY HCO3 Art 17.7 (L) 20.0 - 26.0 mmol/L [facility] LABORATORY BE Art -9.4 (L) -3.0 - 3.0 mmol/L [facility] LABORATORY Hgb Blood Gas 12.4 (L) 13.7 - 16.5 gm/dL [facility] LABORATORY O2HB Art 94.7 94.0 - 97.0 % [facility] LABORATORY COHB Art 0.2 % [facility] LABORATORY Comment: Nonsmokers: 0.5-1.5% COHB Smokers: Variable, but usually less than 10% Toxic: 20-30% COHB Lethal: Greater than 60% COHB METHB Art 0.6 <=1.5 % [facility] LABORATORY Na Whole Blood 141 135 - 145 mmol/L [facility] LABORATORY K Whole Blood 3.5 3.5 - 5.0 mmol/L [facility] LABORATORY Comment: Please note: Patients with WBC >100,000 may have falsely elevated Potassium levels. Contact the Clinical Chemistry L aboratory if there are any questions. ICa Whole Blood 1.03 (L) 1.15 - 1.33 mmol/L [facility] LABORATORY Comment: Note: ??Total bilirubin higher than 20 m g/dL may lead to falsely low ionized calcium. CL Whole Blood 109 (H) 98 - 107 mmol/L [facility] LABORATORY Gluc Whole Bld 315 (H) 65 - 199 mg/dL [facility] LABORATORY Comment: Diabetes: >=200 mg/dL plus symp toms. Lactate WB 7.6 (Critical) 0.5 - 2.2 mmol/L [facility] LABORATORY Comment: Noted by band instrument repairer. FIO2 Art 40 % [facility] LABORATORY PF Ratio Art 240 [facility] LABORATORY Specimen Anatomical Collection Method Collection Time Receive d Time (Source) Location / / Volume Laterality Blood specimen Arterial Draw / 07/08/2017 12:09 2016 5:31 (specimen) Unknown AM EST AM EST Resulting Agency Comment Spec In Lab Samy Maldonado MD CHEMISTRY ORDERABLES Performing Organization Address City/[facility]/[place] [address] (ABNORMAL) POCT Glucose (07/07/2017 10:56 PM EST) athologist Signature POC Glucose 292 (H) 65 - 199 [facility] mg/dL [facility] LABORATORY Comment: Supplemental ranges: <140 [...] [facility]/[place] [address] (ABNORMAL) BLOOD GAS 2 ARTERIAL (07/07/2017 10:04 PM EST) athologist Signature pH Art 7.22 7.35 - [facility] (Critical) 7.45 [facility] LABORATORY Comment: Noted by band instrument repairer. pCO2 Art 42 35 - 45 mmHg [facility] LABORATORY pO2 Art 94 85 - 104 mmHg [facility] LABORATORY HCO3 Art 16.9 (L) 20.0 - 26.0 mmol/L [facility] LABORATORY BE Art -10.7 (L) -3.0 - 3.0 mmol/L [facility] LABORATORY Hgb Blood Gas 13.0 (L) 13.7 - 16.5 gm/dL [facility] LABORATORY O2HB Art 93.8 (L) 94.0 - 97.0 % [facility] LABORATORY COHB Art 0.7 % [facility] LABORATORY Comment: Nonsmokers: 0.5-1.5% COHB Smokers: Variable, but usually less than 10% Toxic: 20-30% COHB Lethal: Greater than 60% COHB METHB Art 0.7 <=1.5 % [facility] LABORATORY Na Whole Blood 140 135 - 145 mmol/L [facility] LABORATORY K Whole Blood 3.3 (L) 3.5 - 5.0 mmol/L [facility] LABORATORY Comment: Please note: Patients with WBC >100,000 may have falsely elevated Potassium levels. Contact the Clinical Chemistry L aboratory if there are any questions. ICa Whole Blood 1.07 (L) 1.15 - 1.33 mmol/L [facility] LABORATORY Comment: Note: ??Total bilirubin higher than 20 m g/dL may lead to falsely low ionized calcium. CL Whole Blood 107 98 - 107 mmol/L [facility] LABORATORY Gluc Whole Bld 304 (H) 65 - 199 mg/dL [facility] LABORATORY Comment: Diabetes: >=200 mg/dL plus symp toms. Lactate WB 8.2 (Critical) 0.5 - 2.2 mmol/L [facility] LABORATORY Comment: Noted by band instrument repairer. FIO2 Art 40 % [facility] LABORATORY PF Ratio Art 235 [facility] LABORATORY Specimen Anatomical Collection Method Collection Time Receive d Time (Source) Location / / Volume Laterality Blood specimen 07/07/2017 10:04 7 (specimen) PM EST 10:04 PM EST Daphne Shahid MD CHEMISTRY ORDERABLES Performing Organization Address City/State/[place] [address] (ABNORMAL) Hemoglobin (07/07/2017 10:00 PM EST) P athologist Signature Hemoglobin 12.8 (L) 13.7 - [facility] 16.5 gm/dL [facility] LABORATORY Specimen Anatomical Collection Method Collection Time Receive d Time (Source) Location / / Volume Laterality Blood specimen 07/07/2017 10:00 7 (specimen) PM EST 10:13 PM EST Resulting Agency Comment Spec In Lab Yuan Webber MD HEMATOLOGY ORDERABLES Performing Organization Address City/[facility]/[place] [address] (ABNORMAL) Potassium (07/07/2017 10:00 PM EST) athologist Signature Potassium 3.4 (L) 3.5 - 5.0 [facility] mmol/L [facility] LABORATORY Comment: Please note: ??Patients [...] Webber MD CHEMISTRY ORDERABLES Performing Organization Address City/[facility]/[place] [address] (ABNORMAL) POCT Glucose (07/07/2017 8:49 PM EST) athologist [facility] POC Glucose 241 (H) 65 - 199 [facility] mg/dL [facility] LABORATORY Comment: Supplemental ranges: <140 [...] [facility]/ZIP Code Phon e Number [address] Prepare Albumin 5% in 250 mL (07/07/2017 8:03 PM EST) athologist Signature Dispensed? Yes [facility] LABORATORY Specimen Anatomical Collection Method Collection Time Receive d Time (Source) Location / / Volume Laterality Blood specimen No Charge / 07/07/2017 8:03 PM 017 8:04 (specimen) Unknown EST PM EST Resulting Agency Comment Spec In Lab Michael BROWN BLOOD BANK ORDERABLES Performing Organization Address City/State/[place] [address] EKG 12 Lead (07/07/2017 7:17 PM EST) Component Value Ref Range Test Analysis Performed Pathologis t Method Time At Signature Ventricular rate 75 BPM MUSE SYSTEM Atrial Rate 75 BPM MUSE SYSTEM P-R Interval 168 ms MUSE SYSTEM QRS Duration 104 ms MUSE SYSTEM Q-T Interval 462 ms MUSE SYSTEM QTC Calculated 515 ms MUSE SYSTEM (Bezet) Calculated P [place] 52 degrees MUSE SYSTEM Calculated R [place] -40 degrees MUSE SYSTEM Calculated T [place] 39 degrees MUSE SYSTEM INTERPRETATION Normal sinus [...] athologist Signature pH Art 7.21 7.35 - [facility] (Critical) 7.45 [facility] LABORATORY Comment: Noted by band instrument repairer. pCO2 Art 50 (H) 35 - 45 mmHg [facility] LABORATORY pO2 Art 238 (H) 85 - 104 mmHg [facility] LABORATORY HCO3 Art 19.8 (L) 20.0 - 26.0 mmol/L [facility] LABORATORY BE Art -8.1 (L) -3.0 - 3.0 mmol/L [facility] LABORATORY Hgb Blood Gas 12.8 (L) 13.7 - 16.5 gm/dL [facility] LABORATORY O2HB Art 97.5 (H) 94.0 - 97.0 % [facility] LABORATORY COHB Art 0.5 % [facility] LABORATORY Comment: Nonsmokers: 0.5-1.5% COHB Smokers: Variable, but usually less than 10% Toxic: 20-30% COHB Lethal: Greater than 60% COHB METHB Art 0.7 <=1.5 % [facility] LABORATORY Na Whole Blood 140 135 - 145 mmol/L [facility] LABORATORY K Whole Blood 3.0 (Critical) 3.5 - 5.0 mmol/L [facility] Comment: Noted by band instrument repairer. Please note: Patients with WBC >100,000 may have falsely elevated Potassium levels. Contact the Clinical Chemistry L aboratory if there are any questions. ICa Whole Blood 1.07 (L) 1.15 - 1.33 mmol/L [facility] LABORATORY Comment: Note: ??Total bilirubin higher than 20 m g/dL may lead to falsely low ionized calcium. CL Whole Blood 107 98 - 107 mmol/L [facility] LABORATORY Gluc Whole Bld 270 (H) 65 - 199 mg/dL [facility] LABORATORY Comment: Diabetes: >=200 mg/dL plus symp toms. Lactate WB 4.9 (Critical) 0.5 - 2.2 mmol/L [facility] LABORATORY Comment: Noted by band instrument repairer. FIO2 Art 100 % [facility] LABORATORY PF Ratio Art 238 [facility] LABORATORY Specimen Anatomical Collection Method Collection Time Receive d Time (Source) Location / / Volume Laterality Blood specimen 07/07/2017 6:57 PM 017 6:57 (specimen) EST PM EST Daphne Shahid MD CHEMISTRY ORDERABLES Performing Organization Address City/State/[place] [address] (ABNORMAL) BLOOD GAS 2 ARTERIAL (07/07/2017 5:31 PM EST) P athologist Signature pH Art 7.29 7.35 - [facility] (Critical) 7.45 [facility] LABORATORY Comment: Noted by band instrument repairer. pCO2 Art 48 (H) 35 - 45 mmHg [facility] LABORATORY pO2 Art 137 (H) 85 - 104 mmHg [facility] LABORATORY HCO3 Art 22.4 20.0 - 26.0 mmol/L [facility] LABORATORY BE Art -4.3 (L) -3.0 - 3.0 mmol/L [facility] LABORATORY Hgb Blood Gas 10.0 (L) 13.7 - 16.5 gm/dL [facility] LABORATORY O2HB Art 97.3 (H) 94.0 - 97.0 % [facility] LABORATORY COHB Art 0.3 % [facility] LABORATORY Comment: Nonsmokers: 0.5-1.5% COHB Smokers: Variable, but usually less than 10% Toxic: 20-30% COHB Lethal: Greater than 60% COHB METHB Art 0.3 <=1.5 % [facility] LABORATORY Na Whole Blood 132 (L) 135 - 145 mmol/L [facility] LABORATORY K Whole Blood 4.0 3.5 - 5.0 mmol/L [facility] LABORATORY Comment: Please note: Patients with WBC >100,000 may have falsely elevated Potassium levels. Contact the Clinical Chemistry L aboratory if there are any questions. ICa Whole Blood 1.14 (L) 1.15 - 1.33 mmol/L [facility] LABORATORY Comment: Note: ??Total bilirubin higher than 20 m g/dL may lead to falsely low ionized calcium. CL Whole Blood 105 98 - 107 mmol/L [facility] LABORATORY Gluc Whole Bld 293 (H) 65 - 199 mg/dL [facility] LABORATORY Comment: Diabetes: >=200 mg/dL plus symp toms. Lactate WB 3.1 (H) 0.5 - 2.2 mmol/L [facility] LABORATORY Specimen Anatomical Collection Method Collection Time Receive d Time (Source) Location / / Volume Laterality Blood specimen 07/07/2017 5:31 PM 017 5:31 (specimen) EST PM EST Daphne Shahid MD CHEMISTRY ORDERABLES Performing Organization Address City/State/[place] [address] Fibrinogen (07/07/2017 5:30 PM EST) athologist Signature Fibrinogen 224 180 - 510 [facility] mg/dL [facility] LABORATORY Comment: Called by: JEET, [...] Perez MD HEMATOLOGY ORDERABLES Performing Organization Address City/[facility]/ZIP Code Phon e Number [address] APTT (07/07/2017 5:30 PM EST) athologist Signature PTT 30 25 - 35 sec [facility] [...] Perez MD HEMATOLOGY ORDERABLES Performing Organization Address City/[facility]/[place] [address] (ABNORMAL) Prothrombin Time (07/07/2017 5:30 PM EST) athologist Signature PT 19.0 (H) 11.8 - 14.0 [facility] LABORATORY INR 1.6 (H) 0.9 - 1.1 [facility] [...] Address City/State/Z[place] [address] (ABNORMAL) Hemogram (07/07/2017 5:30 PM EST) athologist Signature WBC 19.6 (H) 4.0 - 9.5 [facility] x10(3)/[facility] LABORATORY RBC 3.08 (L) 4.58 - [facility] 5.54 [facility] x10(6)/[facility] LABORATORY Hemoglobin 9.2 (L) 13.7 - [facility] 16.5 gm/dL [facility] LABORATORY Hematocrit 28.0 (L) 40.5 - [facility] 48.5 % [facility] LABORATORY Comment: This result has been called to MONICA WEINSTEIN LUISA by DONALD GROSSMAN on 07 07 2017 at 1759, and has been read back. MCV 90.9 82.9 - 93.1 fL [facility] LABORATORY MCH 29.9 27.5 - 32.1 pg [facility] LABORATORY MCHC 32.9 32.0 - 35.7 gm/dL [facility] LABORATORY Platelets 155 145 - 357 x10(3)/[facility] LABORATORY RDWSD 46.5 (H) 36.0 - 45.0 [facility] LABORATORY RDWCV 14.1 (H) 11.4 - 13.8 % [facility] LABORATORY MPV 9.5 7.6 - 12.9 [facility] LABORATORY nRBC % Auto 0.0 % [facility] LABORATORY nRBC Abs Auto 0.000 0.000 - 0.000 x10(3)/[facility] LABORATORY Specimen Anatomical Collection Method Collection Time Receive d Time (Source) Location / / Volume Laterality Blood specimen 07/07/2017 5:30 PM 017 5:34 (specimen) EST PM EST Resulting Agency Comment Spec In Lab Yifan Perez MD HEMATOLOGY ORDERABLES Performing Organization Address [facility] Phon e Number [address] Prepare Platelets, Apheresis (07/07/2017 5:00 PM EST) P athologist Signature Dispensed? Yes [facility] LABORATORY Specimen Anatomical Collection Method Collection Time Receive d Time (Source) Location / / Volume Laterality Blood specimen 07/07/2017 5:00 PM 017 4:58 (specimen) EST PM EST Daphne Shahid MD BLOOD BANK ORDERABLES Performing Organization Address City/[facility] Phon e Number [address] Platelet count (07/07/2017 4:55 PM EST) P athologist Signature Platelets 177 145 - 357 [facility] x10(3)/[facility] LABORATORY Plat Immature 1.5 0.0 - 7.4 [facility] % % [facility] LABORATORY Comment: Limitation of the Immature Platelet Frac tion (IPF)-May be less reliable when the platelet count is less than 25c731/u L due to statistical imprecision. The IPF [...] in a decreased state of production. References: [employer] The Clinical Value of the Immature Platelet Fraction (IPF) in Cell Recovery Document Number 10-1143 12/2010 [employer] The Role of the Imm ature [...] Organization Address City/State/[place] [address] (ABNORMAL) Hemoglobin and Hematocrit, blood (07/07/2017 4:55 PM EST) P athologist Signature Hemoglobin 9.1 (L) 13.7 - 16.5 [facility] gm/dL [facility] LABORATORY Comment: This result has been called to MALKA MORAN by DONALD GROSSMAN on 07 07 2017 at 1734, and has been read back. Hematocrit 26.6 (L) 40.5 - 48.5 % [facility] LABORATORY Comment: This result has [...] Organization Address City/State/[place] [address] (ABNORMAL) BLOOD GAS 2 ARTERIAL (07/07/2017 4:38 PM EST) Analysis Performed At Patho logist Time Signature pH Art 7.37 7.35 - [facility] 7.45 [facility] LABORATORY pCO2 Art 44 35 - 45 [facility] mmHg [facility] LABORATORY pO2 Art 322 (H) 85 - 104 [facility] LABORATORY HCO3 Art 24.9 20.0 - [facility] 26.0 [facility] mmol/L [facility] LABORATORY BE Art -0.4 -3.0 - 3.0 [facility] mmol/L [facility] LABORATORY Hgb Blood Gas 10.1 (L) 13.7 - [facility] [facility] 16.5 gm/dL [facility] LABORATORY O2HB Art 98.7 (H) 94.0 - [facility] 97.0 % [facility]ORY COHB Art 0.1 % [facility] Comment: Nonsmokers: 0.5-1.5% COHB Smokers: Variable, but usually less than 10% Toxic: 20-30% COHB Lethal: Greater than 60% COHB METHB Art 0.3 <=1.5 % [facility] Na Whole Blood 130 (L) 135 - 145 mmol/L [facility] K Whole Blood 5.7 (H) 3.5 - 5.0 mmol/L [facility] Comment: Please note: Patients with WBC >100,000 may have falsely elevated Potassium levels. Contact the Clinical Chemistry L aboratory if there are any questions. ICa Whole Blood 0.89 (Critical) 1.15 - 1.33 mmol/L [facility] Comment: Noted by band instrument repairer. Note: ??Total bilirubin higher than 20 m g/dL may lead to falsely low ionized calcium. CL Whole Blood 101 98 - 107 mmol/L [facility] Gluc Whole Bld 295 (H) 65 - 199 mg/dL [facility] Comment: Diabetes: >=200 mg/dL plus symp toms. Lactate WB 1.7 0.5 - 2.2 mmol/L [facility]OR[facility] Specimen Anatomical Collection Method Collection Time Receive d Time (Source) Location / / Volume Laterality Blood specimen 07/07/2017 4:38 PM 017 4:38 (specimen) EST PM EST Daphne Shahid MD CHEMISTRY ORDERABLES Performing Organization Address City/State/[place] [address] (ABNORMAL) BLOOD GAS 2 VENOUS (07/07/2017 4:06 PM EST) Analysis Performed At Patho logist Time Signature pH Cody 7.31 (L) 7.32 - [facility] 7.42 [facility] LABORATORY pCO2 Cody 47 41 - 51 [facility] LABORATORY pO2 Cody 53 (H) 25 - 40 [facility] LABORATORY HCO3 Cody 22.7 mmol/L [facility] BE Cody -3.7 mmol/L [facility] Hgb Blood Gas 10.2 (L) 13.7 - [facility] 16.5 gm/dL [facility]ORY O2HB Cody 81.0 % [facility] COHB Cody 1.0 % [facility] Comment: Nonsmokers: 0.5-1.5% COHB Smokers: Variable, but usually less than 10% Toxic: 20-30% COHB Lethal: Greater than 60% COHB METHB Cody 0.3 <=1.5 % [facility] Na Whole Blood 132 (L) 135 - 145 mmol/L [facility] K Whole Blood 5.3 (H) 3.5 - 5.0 mmol/L [facility] Comment: Please note: Patients with WBC >100,000 may have falsely elevated Potassium levels. Contact the Clinical Chemistry L aboratory if there are any questions. ICa Whole Blood 0.90 (Critical) 1.15 - 1.33 mmol/L [facility] Comment: Noted by band instrument repairer. Note: ??Total bilirubin higher than 20 m g/dL may lead to falsely low ionized calcium. CL Whole Blood 100 98 - 107 mmol/L [facility] Gluc Whole Bld 231 (H) 65 - 199 mg/dL [facility] Comment: Diabetes: >=200 mg/dL plus symp toms Lactate WB 1.1 0.5 - 2.2 mmol/L [facility] BGas Source Venous [facility] Specimen Anatomical Collection Method Collection Time Receive d Time (Source) Location / / Volume Laterality Blood specimen 07/07/2017 4:06 PM 017 4:06 (specimen) EST PM EST Daphne Shahid MD CHEMISTRY ORDERABLES Performing Organization Address City/State/[place] [address] (ABNORMAL) BLOOD GAS 2 ARTERIAL (07/07/2017 4:05 PM EST) Analysis Performed At Patho logist Time Signature pH Art 7.36 7.35 - [facility] 7.45 [facility] LABORATORY pCO2 Art 40 35 - 45 [facility] mmHg [facility] LABORATORY pO2 Art 282 (H) 85 - 104 [facility] LABORATORY HCO3 Art 22.1 20.0 - [facility] 26.0 [facility] mmol/L [facility] LABORATORY BE Art -3.4 (L) -3.0 - 3.0 [facility] mmol/L [facility] LABORATORY Hgb Blood Gas 10.2 (L) 13.7 - [facility] 16.5 gm/dL [facility] LABORATORY O2HB Art 98.4 (H) 94.0 - [facility] 97.0 % [facility] LABORATORY COHB Art 0.3 % [facility] Comment: Nonsmokers: 0.5-1.5% COHB Smokers: Variable, but usually less than 10% Toxic: 20-30% COHB Lethal: Greater than 60% COHB METHB Art 0.3 <=1.5 % [facility] Na Whole Blood 131 (L) 135 - 145 mmol/L [facility]OR[facility] K Whole Blood 5.4 (H) 3.5 - 5.0 mmol/L [facility] Comment: Please note: Patients with WBC >100,000 may have falsely elevated Potassium levels. Contact the Clinical Chemistry L aboratory if there are any questions. ICa Whole Blood 0.86 (Critical) 1.15 - 1.33 mmol/L [facility] Comment: Noted by band instrument repairer. Note: ??Total bilirubin higher than 20 m g/dL may lead to falsely low ionized calcium. CL Whole Blood 101 98 - 107 mmol/L [facility] Gluc Whole Bld 260 (H) 65 - 199 mg/dL [facility] Comment: Diabetes: >=200 mg/dL plus symp toms. Lactate WB 1.4 0.5 - 2.2 mmol/L [facility] Specimen Anatomical Collection Method Collection Time Receive d Time (Source) Location / / Volume Laterality Blood specimen 07/07/2017 4:05 PM 017 4:05 (specimen) EST PM EST Daphne Shahid MD CHEMISTRY ORDERABLES Performing Organization Address City/State/Z[place] [address] (ABNORMAL) BLOOD GAS 2 ARTERIAL (07/07/2017 2:29 PM EST) Analysis Performed At Patho logist Time Signature pH Art 7.43 7.35 - [facility] 7.45 [facility] LABORATORY pCO2 Art 36 35 - 45 [facility] mmHg [facility] LABORATORY pO2 Art 221 (H) 85 - 104 [facility] LABORATORY HCO3 Art 23.2 20.0 - [facility] 26.0 [facility] mmol/L [facility] LABORATORY BE Art -1.2 -3.0 - 3.0 [facility] mmol/L [facility] LABORATORY Hgb Blood Gas 13.9 13.7 - [facility] 16.5 gm/dL [facility] LABORATORY O2HB Art 97.8 (H) 94.0 - [facility] 97.0 % [facility] LABORATORY COHB Art 1.1 % [facility] Comment: Nonsmokers: 0.5-1.5% COHB Smokers: Variable, but usually less than 10% Toxic: 20-30% COHB Lethal: Greater than 60% COHB METHB Art 0.3 <=1.5 % [facility] Na Whole Blood 139 135 - 145 mmol/L [facility] K Whole Blood 4.0 3.5 - 5.0 mmol/L [facility] Comment: Please note: Patients with WBC >100,000 may have falsely elevated Potassium levels. Contact the Clinical Chemistry L aboratory if there are any questions. ICa Whole Blood 1.11 (L) 1.15 - 1.33 mmol/L [facility] Comment: Note: ??Total bilirubin higher than 20 m g/dL may lead to falsely low ionized calcium. CL Whole Blood 104 98 - 107 mmol/L [facility] Gluc Whole Bld 184 65 - 199 mg/dL [facility] Comment: Diabetes: >=200 mg/dL plus symp toms. Lactate WB 1.5 0.5 - 2.2 mmol/L [facility] Specimen Anatomical Collection Method Collection Time Receive d Time (Source) Location / / Volume Laterality Blood specimen 07/07/2017 2:29 PM 017 2:29 (specimen) EST PM EST Daphne Shahid MD CHEMISTRY ORDERABLES Performing Organization Address City/[facility]/ZIP Code Phon e Number [address] Prepare Coag Factors (Non-Hemophilia) (07/07/2017 1:25 PM EST) P athologist Signature Dispensed? Yes [facility] Specimen Anatomical Collection Method Collection Time Receive d Time (Source) Location / / Volume Laterality Blood specimen 07/07/2017 1:25 PM 017 1:21 (specimen) EST PM EST Daphne Shahid MD BLOOD BANK ORDERABLES Performing Organization Address City/[facility]/[place] [address] Prepare RBC (07/07/2017 1:10 PM EST) P athologist Signature Dispensed? Yes [facility] Specimen Anatomical Collection Method Collection Time Receive d Time (Source) Location / / Volume Laterality Blood specimen 07/07/2017 1:10 PM 017 1:05 (specimen) EST PM EST Daphne Shahid MD BLOOD BANK ORDERABLES Performing Organization Address City/[facility]/[place] [address] POCT Glucose (07/07/2017 11:56 AM EST) P athologist Signature POC Glucose 188 65 - 199 [facility] mg/dL [facility] LABORATORY Comment: Supplemental ranges: <140 [...] [facility]/ZIP Code Phon e Number [address] POCT Glucose (07/07/2017 11:05 AM EST) P athologist Signature POC Glucose 168 65 - 199 [place] mg/dL [facility] LABORATORY Comment: Supplemental ranges: <140 [...] [facility]/ZIP Code Phon e Number [address] POCT Glucose (07/07/2017 10:02 AM EST) P athologist Signature POC Glucose 191 65 - 199 [place] mg/dL [facility] LABORATORY Comment: Supplemental ranges: <140 [...] [facility]/ZIP Code Phon e Number [address] POCT Glucose (07/07/2017 7:53 AM EST) P athologist Signature POC Glucose 178 65 - 199 [facility] mg/dL [facility] LABORATORY Comment: Supplemental ranges: <140 mg/dL before meals <180 mg/dL all other times of the day Specimen Anatomical Collection Method Collection Time Receive d Time (Source) Location / / Volume Laterality Blood specimen 07/07/2017 7:53 AM 017 7:53 (specimen) EST AM EST Daphne Shahid MD POINT OF CARE TEST ORDERABLE S Performing Organization Address City/State/ZIP Code Phon e Number [address] POCT Glucose (07/07/2017 7:03 AM EST) athologist Signature POC Glucose 188 65 - 199 [facility] mg/dL [facility] LABORATORY Comment: Supplemental ranges: <140 [...] [facility]/[place] [address] (ABNORMAL) POCT Glucose (07/07/2017 6:17 AM EST) athologist Signature POC Glucose 207 (H) 65 - 199 [facility] mg/dL [facility] LABORATORY Comment: Supplemental ranges: <140 [...] [facility]/ZIP Code Phon e Number [address] Differential, Automated (07/07/2017 5:15 AM EST) athologist Signature Neutrophils % 69.7 % [facility] Neutr Abs (ANC) 5.32 1.70 - [facility] 6.10 [facility] x10(3)/[facility] LABORATORY Lymphocytes % 16.3 % [facility] LABORATORY Lymphocytes Abs 1.2 0.9 - 3.2 [facility] x10(3)/[facility] LABORATORY Monocytes % 10.5 % [facility] LABORATORY Monocyte Abs 0.8 0.3 - 0.9 [facility] x10(3)/[facility] LABORATORY Eosinophils % 2.5 % [facility]ORY Eosinophils Abs 0.2 0.0 - 0.4 [facility] x10(3)/[facility] LABORATORY Basophils % 0.7 % [facility] Basophils Abs 0.0 0.0 - 0.1 [facility] x10(3)/[facility] LABORATORY Immature Gran % 0.30 % [facility] Comment: Immature granulocytes(IG's)percentage an d absolute count will include metamyelocytes, myelocytes, and promyelo cytes. Blood smears from CBCs yielding IG's will be scanned manually for concor dance. If this scan disagrees with the automated IG or if promyelocytes are not ed, a manual differential will be performed. Melisa Gran Abs 0.02 0.00 - 0.04 x10(3)/[facility] LABORATORY Specimen Anatomical Collection Method Collection Time Receive d Time (Source) Location / / Volume Laterality Blood specimen 07/07/2017 5:15 AM 017 5:34 (specimen) EST AM EST Resulting Agency Comment Spec In Lab Daphne Shahid MD HEMATOLOGY ORDERABLES Performing Organization Address City/State/[place] [address] (ABNORMAL) Hemogram (07/07/2017 5:15 AM EST) Analysis Performed At Patho logist Time Signature WBC 7.6 4.0 - 9.5 [facility] x10(3)/[facility] LABORATORY RBC 4.82 4.58 - [facility] 5.54 [facility] x10(6)/[facility] LABORATORY Hemoglobin 14.4 13.7 - [facility] 16.5 gm/dL [facility] LABORATORY Hematocrit 42.1 40.5 - [facility] 48.5 % [facility] LABORATORY MCV 87.3 82.9 - [facility] 93.1 fL [facility] LABORATORY MCH 29.9 27.5 - [facility] 32.1 pg [facility] LABORATORY MCHC 34.2 32.0 - [place] DAV[place] 35.7 gm/dL [facility] LABORATORY Platelets 188 145 - 357 [facility] RYAN x10(3)/[facility] LABORATORY RDWSD 45.1 (H) 36.0 - [place] DAVIS 45.0 [facility] LABORATORY RDWCV 14.3 (H) 11.4 - [facility] R[facility]AN 13.8 % [facility] LABORATORY MPV 9.4 7.6 - 12.9 [facility] R[facility] LABORATORY nRBC % Auto 0.0 % [facility] LABORATORY nRBC Abs Auto 0.000 0.000 - [place] DAV[place] 0.000 [facility] x10(3)/[facility] LABORATORY Specimen Anatomical Collection Method Collection Time Receive d Time (Source) Location / / Volume Laterality Blood specimen 07/07/2017 5:15 AM 017 5:34 (specimen) EST AM EST Resulting Agency Comment Spec In Lab Daphne Shahid MD HEMATOLOGY ORDERABLES Performing Organization Address City/[facility]/ZIP Code Phon e Number [address] (ABNORMAL) APTT (07/07/2017 5:15 AM EST) P athologist Signature PTT 69 (H) 25 - 35 sec [facility] Shahid MD HEMATOLOGY ORDERABLES Performing Organization Address City/[facility]/ZIP Code Phon e Number [address] Magnesium (07/07/2017 5:15 AM EST) P athologist Signature Magnesium 0.94 0.69 - 1.07 [facility] mmol/L [facility] LABORATORY Specimen Anatomical Collection Method Collection Time Receive d Time (Source) Location / / Volume Laterality Blood specimen 07/07/2017 5:15 AM 017 5:34 (specimen) EST AM EST Resulting Agency Comment Spec In Lab Daphne Shahid MD CHEMISTRY ORDERABLES Performing Organization Address City/State/[place] [address] (ABNORMAL) Basic Metabolic Panel (non-fasting) (07/07/2017 5:15 AM EST) P athologist Signature Glucose Lvl 203 (H) 65 - 199 [facility] mg/dL [facility] LABORATORY Comment: Diabetes: >=200 mg/dL plus symp toms BUN 15 10 - 20 mg/dL [facility] LABORATORY Creatinine 1.09 0.80 - 1.50 mg/dL [facility] LABORATORY Sodium 142 135 - [...] estions. Chloride 102 98 - 107 mmol/L [facility]ORY CO2 26 22 - 31 mmol/L [facility] Anion Gap 14 5 - 15 mmol/L [facility] LABORATORY Calcium 8.6 8.5 - 10.5 mg/dL [facility] LABORATORY Estimated GFR >60 >=60 [facility] LABORATORY Comment: The reported eGFR should be multiplied b y 1.2 for patients. The MDRD is not an appropriate measure o f renal function for patients with body mass extremes or in patients with acute kidney failure. http://[employer]/DHnkdep http://[employer]/DHMCnkf Specimen Anatomical Collection Method Collection Time Receive d Time (Source) Location / / Volume Laterality Blood specimen 07/07/2017 5:15 AM 017 5:34 (specimen) EST AM EST Resulting Agency Comment Spec In Lab Daphne Shahid MD CHEMISTRY ORDERABLES Performing Organization Address City/[facility]/ZIP Code Phon e Number [address] (ABNORMAL) Cardiac Enzymes (LEB/CGP) (07/07/2017 5:15 AM EST) athologist Signature Troponin-T 2.07 (H) 0.00 - [place] R[place] 0.00 ng/mL [facility] LABORATORY Comment: The 99th percentile for Troponin T is le ss than 0.01 ng/mL, any detectable cTnT concentration using this assay should be considered elevated. According to the third universal definit ion of myocardial infarction the following criteria with a clinical prese ntation consistent with acute myocardial ischemia meets the diagnosis for a myocardial infarction (SC). Detection of a rise and/or fall of [...] additional sample may be indicated. Reference: Third Pollock Definition of Myocardial Infarction. Journal of the [employer] 2012;60:1581-98 CK, Total 88 0 - 200 unit/L [facility] LABORATORY Specimen Anatomical Collection Method Collection Time Receive d Time (Source) Location / / Volume Laterality Blood specimen 07/07/2017 5:15 AM 017 5:34 (specimen) EST AM EST Resulting Agency Comment Spec In Lab Daphne Shahid MD CHEMISTRY ORDERABLES Performing Organization Address City/State/ZIP Code Phon e Number [address] POCT Glucose (07/07/2017 5:01 AM EST) athologist Signature POC Glucose 182 65 - 199 [facility] mg/dL [facility] LABORATORY Comment: Supplemental ranges: <140 mg/dL before meals <180 mg/dL all other times of the day Specimen Anatomical Collection Method Collection Time Receive d Time (Source) Location / / Volume Laterality Blood specimen 07/07/2017 5:01 AM 017 5:01 (specimen) EST AM EST Daphne Shahid MD POINT OF CARE TEST ORDERABLE S Performing Organization Address City/State/ZIP Code Phon e Number [address] POCT Glucose (07/07/2017 4:08 AM EST) athologist Signature POC Glucose 199 65 - 199 [facility] mg/dL [facility] LABORATORY Comment: Supplemental ranges: <140 mg/dL before meals <180 mg/dL all other times of the day Specimen Anatomical Collection Method Collection Time Receive d Time (Source) Location / / Volume Laterality Blood specimen 07/07/2017 4:08 AM 017 4:08 (specimen) EST AM EST Daphne Shahid MD POINT OF CARE TEST ORDERABLE S Performing Organization Address City/State/[place] [address] POCT Glucose (07/07/2017 3:03 AM EST) athologist Signature POC Glucose 188 65 - 199 [facility] mg/dL [facility] LABORATORY Comment: Supplemental ranges: <140 mg/dL before meals <180 mg/dL all other times of the day Specimen Anatomical Collection Method Collection Time Receive d Time (Source) Location / / Volume Laterality Blood specimen 07/07/2017 3:03 AM 017 3:03 (specimen) EST AM EST Daphne Shahid MD POINT OF CARE TEST ORDERABLE S Performing Organization Address City/State/[place] [address] (ABNORMAL) POCT Glucose (07/07/2017 2:08 AM EST) athologist Signature POC Glucose 200 (H) 65 - 199 [facility] LABORATORY Comment: Supplemental ranges: <140 mg/dL before meals <180 mg/dL all other times of the day Specimen Anatomical Collection Method Collection Time Receive d Time (Source) Location / / Volume Laterality Blood specimen 07/07/2017 2:08 AM 017 2:08 (specimen) EST AM EST Daphne Shahid MD POINT OF CARE TEST ORDERABLE S Performing Organization Address City/State/[place] [address] (ABNORMAL) POCT Glucose (07/07/2017 1:31 AM EST) athologist Signature POC Glucose 209 (H) 65 - 199 [facility] mg/dL [facility] LABORATORY Comment: Supplemental ranges: <140 [...] [facility]/[place] [address] XR Chest PA or [...] Signature POC Glucose 161 65 - 199 [facility] mg/dL [facility] LABORATORY Comment: Supplemental ranges: <140 mg/dL before meals <180 mg/dL all other times of the day Specimen Anatomical Collection Method Collection Time Receive d Time (Source) Location / / Volume Laterality Blood specimen 07/07/2017 12: 7 (specimen) AM EST 12:07 AM EST Daphne Shahid MD POINT OF CARE TEST ORDERABLE S Performing Organization Address City/State/[place] [address] (ABNORMAL) APTT (07/07/2017 12:00 AM EST) athologist Signature PTT 103 (H) 25 - 35 sec [facility] Address City/State/ZIP Code Phon e Number [place] POCT Glucose (07/06/2017 9:55 PM EST) athologist Signature POC Glucose 109 65 - 199 [facility] mg/dL [facility] LABORATORY Comment: Supplemental ranges: <140 mg/dL before meals <180 mg/dL all other times of the day Specimen Anatomical Collection Method Collection Time Receive d Time (Source) Location / / Volume Laterality Blood specimen 07/06/2017 9:55 PM 017 9:55 (specimen) EST PM EST Daphne Shahid MD POINT OF CARE TEST ORDERABLE S Performing Organization Address City/State/ZIP Code Phon e Number [address] POCT Glucose (07/06/2017 9:04 PM EST) athologist Signature POC Glucose 120 65 - 199 [facility] mg/dL [facility] LABORATORY Comment: Supplemental ranges: <140 mg/dL before meals <180 mg/dL all other times of the day Specimen Anatomical Collection Method Collection Time Receive d Time (Source) Location / / Volume Laterality Blood specimen 07/06/2017 9:04 PM 017 9:04 (specimen) EST PM EST Daphne Shahid MD POINT OF CARE TEST ORDERABLE S Performing Organization Address City/State/ZIP Code Phon e Number [address] POCT Glucose (07/06/2017 7:45 PM EST) athologist Signature POC Glucose 158 65 - 199 [facility] mg/dL [facility] LABORATORY Comment: Supplemental ranges: <140 mg/dL before meals <180 mg/dL all other times of the day Specimen Anatomical Collection Method Collection Time Receive d Time (Source) Location / / Volume Laterality Blood specimen 07/06/2017 7:45 PM 017 7:45 (specimen) EST PM EST Daphne Shahid MD POINT OF CARE TEST ORDERABLE S Performing Organization Address City/State/[place] [address] Potassium (07/06/2017 7:40 PM EST) athologist Signature Potassium 3.9 3.5 - 5.0 [facility] mmol/L [facility] LABORATORY Comment: Please note: ??Patients [...] Organization Address City/State/ZIP Code Phon e Number [place] [id number] (ABNORMAL) Cardiac Enzymes (LEB/CGP) (07/06/2017 7:40 PM EST) athologist Signature Troponin-T 2.27 (H) 0.00 - [facility] [facility] 0.00 ng/mL [facility] Comment: The 99th percentile for Troponin T is le ss than 0.01 ng/mL, any detectable cTnT concentration using this assay should be considered elevated. According to the third universal definit ion of myocardial infarction the following criteria with a clinical prese ntation consistent with acute myocardial ischemia meets the diagnosis for a myocardial infarction (SC). Detection of a rise and/or fall of [...] additional sample may be indicated. Reference: Third Pollock Definition of Myocardial Infarction. Journal of the [employer] 2012;60:1581-98 CK, Total 93 0 - 200 unit/L [facility] Specimen Anatomical Collection Method Collection Time Receive d Time (Source) Location / / Volume Laterality Blood specimen 07/06/2017 7:40 PM 017 7:52 (specimen) EST PM EST Resulting Agency Comment Spec In Lab Daphne Shahid MD CHEMISTRY ORDERABLES Performing Organization Address City/[facility]/[place] [address] (ABNORMAL) POCT Glucose (07/06/2017 7:13 PM EST) P athologist Signature POC Glucose 200 (H) 65 - 199 [facility] mg/dL [facility] Comment: Supplemental ranges: <140 mg/dL before meals <180 mg/dL all other times of the day Specimen Anatomical Collection Method Collection Time Receive d Time (Source) Location / / Volume Laterality Blood specimen 07/06/2017 7:13 PM 017 7:13 (specimen) EST PM EST Daphne Shahid MD POINT OF CARE TEST ORDERABLE S Performing Organization Address [facility] [place] [address] (ABNORMAL) APTT (07/06/2017 6:15 PM EST) P athologist Signature PTT 94 (H) 25 - 35 sec [facility] Shahid MD HEMATOLOGY ORDERABLES Performing Organization Address City/[facility]/[place] [address] (ABNORMAL) POCT Glucose (07/06/2017 6:03 PM EST) athologist Signature POC Glucose 236 (H) 65 - 199 [facility] mg/dL [facility] Comment: Supplemental ranges: <140 mg/dL before meals <180 mg/dL all other times of the day Specimen Anatomical Collection Method Collection Time Receive d Time (Source) Location / / Volume Laterality Blood specimen 07/06/2017 6:03 PM 017 6:03 (specimen) EST PM EST Daphne Shahid MD POINT OF CARE TEST ORDERABLE S Performing Organization Address City/State/ZIP Code Phon e Number [address] (ABNORMAL) POCT Glucose (07/06/2017 5:01 PM EST) athologist Signature POC Glucose 235 (H) 65 - 199 [facility] mg/dL [facility] Comment: Supplemental ranges: <140 mg/dL before meals <180 mg/dL all other times of the day Specimen Anatomical Collection Method Collection Time Receive d Time (Source) Location / / Volume Laterality Blood specimen 07/06/2017 5:01 PM 017 5:01 (specimen) EST PM EST Daphne Shahid MD POINT OF CARE TEST ORDERABLE S Performing Organization Address City/State/[place] [address] (ABNORMAL) POCT Glucose (07/06/2017 4:06 PM EST) athologist Signature POC Glucose 202 (H) 65 - 199 [facility] mg/dL [facility] Comment: Supplemental ranges: <140 mg/dL before meals <180 mg/dL all other times of the day Specimen Anatomical Collection Method Collection Time Receive d Time (Source) Location / / Volume Laterality Blood specimen 07/06/2017 4:06 PM 017 4:06 (specimen) EST PM EST Daphne Shahid MD POINT OF CARE TEST ORDERABLE S Performing Organization Address City/State/ZIP Code Phon e Number [address] POCT Glucose (07/06/2017 2:59 PM EST) athologist Signature POC Glucose 178 65 - 199 [facility] mg/dL [facility] Comment: Supplemental ranges: <140 mg/dL before meals <180 mg/dL all other times of the day Specimen Anatomical Collection Method Collection Time Receive d Time (Source) Location / / Volume Laterality Blood specimen 07/06/2017 2:59 PM 017 2:59 (specimen) EST PM EST Daphne Shahid MD POINT OF CARE TEST ORDERABLE S Performing Organization Address City/State/ZIP Code Phon e Number [address] (ABNORMAL) Cardiac Enzymes (LEB/CGP) (07/06/2017 2:10 PM EST) athologist Signature Troponin-T 2.34 (H) 0.00 - [facility] 0.00 ng/mL [facility] Comment: The 99th percentile for Troponin T is le ss than 0.01 ng/mL, any detectable cTnT concentration using this assay should be considered elevated. According to the third universal definit ion of myocardial infarction the following criteria with a clinical prese ntation consistent with acute myocardial ischemia meets the diagnosis for a myocardial infarction (SC). Detection of a rise and/or fall of [...] additional sample may be indicated. Reference: Third Pollock Definition of Myocardial Infarction. Journal of the [employer] 2012;60:1581-98 CK, Total 101 0 - 200 unit/L [facility] Specimen Anatomical Collection Method Collection Time Receive d Time (Source) Location / / Volume Laterality Blood specimen 07/06/2017 2:10 PM 017 2:26 (specimen) EST PM EST Resulting Agency Comment Spec In Lab Daphne Shahid MD CHEMISTRY ORDERABLES Performing Organization Address City/[facility]/ZIP Code Phon e Number [address] POCT Glucose (07/06/2017 2:08 PM EST) athologist Signature POC Glucose 192 65 - 199 [facility] mg/dL [facility] Comment: Supplemental ranges: <140 [...] [facility]/ZIP Code Phon e Number [address] POCT Glucose (07/06/2017 1:04 PM EST) athologist Signature POC Glucose 162 65 - 199 [facility] mg/dL [facility] Comment: Supplemental ranges: <140 mg/dL before meals <180 mg/dL all other times of the day Specimen Anatomical Collection Method Collection Time Receive d Time (Source) Location / / Volume Laterality Blood specimen 07/06/2017 1:04 PM 017 1:04 (specimen) EST PM EST Daphne Shahid MD POINT OF CARE TEST ORDERABLE S Performing Organization Address City/State/ZIP Code Phon e Number [address] POCT Glucose (07/06/2017 12:05 PM EST) athologist Signature POC Glucose 196 65 - 199 [facility] mg/dL [facility] Comment: Supplemental ranges: <140 mg/dL before meals <180 mg/dL all other times of the day Specimen Anatomical Collection Method Collection Time Receive d Time (Source) Location / / Volume Laterality Blood specimen 07/06/2017 12:05 7 (specimen) PM EST 12:05 PM EST Daphne Shahid MD POINT OF CARE TEST ORDERABLE S Performing Organization Address [facility]/[place]IP [place] [address] EKG 12 Lead (07/06/2017 12:00 PM EST) Component Value Ref Range Test Analysis Performed Pathologis t Method Time At Signature Ventricular rate 91 BPM MUSE SYSTEM Atrial Rate 91 BPM MUSE SYSTEM P-R Interval 140 ms MUSE SYSTEM QRS Duration 94 ms MUSE SYSTEM Q-T Interval 394 ms MUSE SYSTEM QTC Calculated 484 ms MUSE SYSTEM (Bezet) Calculated P [place] 36 degrees MUSE SYSTEM Calculated R [place] -19 degrees MUSE SYSTEM Calculated T [place] 104 degrees MUSE SYSTEM INTERPRETATION Normal sinus rhythm MUSE SYSTEM 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) ST & T wave abnormality, consider lateral ischemia Abnormal ECG When compared with ECG of 05-JUL-2017 20:39, No significant change was found Confirmed by MD Luci, Taurus Braun ([id number]) on 07/06/2017 5:07:33 PM Specimen Anatomical Collection Method Collection Time Receive d Time (Source) Location / / Volume Laterality 07/06/2017 12:00 07/06/2017 5:07 PM EST PM EST Daphne Shahid MD ECG ORDERABLES Performing Organization Address [facility]/ZIP Code Phon e Number MUSE SYSTEM ABORH Recheck Status (07/06/2017 12:00 PM EST) [facility] Method Time Signature ABORH Type Completed [facility] LABORATORY Specimen Anatomical Collection Method Collection Time Receive d Time (Source) Location / / Volume Laterality Blood specimen 07/06/2017 12:00 7 (specimen) PM EST 12:24 PM EST Resulting Agency Comment Spec In Lab Daphne Shahid MD BLOOD BANK ORDERABLES Performing Organization Address City/[facility]/[place]IP [place] [address] Antibody screen (07/06/2017 12:00 PM EST) [facility] Method Time Signature Ab Screen Negative [facility] LABORATORY Expires at 07/09/2017 [facility] [id number] on: [facility] Specimen Anatomical Collection Method Collection Time Receive d Time (Source) Location / / Volume Laterality Blood specimen 07/06/2017 12:00 7 (specimen) PM EST 12:24 PM EST Resulting Agency Comment Spec In Lab Daphne Shahid MD BLOOD BANK ORDERABLES Performing Organization Address City/[facility]/ZIP Code Phon e Number [address] ABO/Rh Typing (07/06/2017 12:00 PM EST) P athologist Signature ABORh Type O Pos [facility] Specimen Anatomical Collection Method Collection Time Receive d Time (Source) Location / / Volume Laterality Blood specimen 07/06/2017 12:00 7 (specimen) PM EST 12:24 PM EST Resulting Agency Comment Spec In Lab Daphne Shahid MD BLOOD BANK ORDERABLES Performing Organization Address City/[facility] Phon e Number [address] Prothrombin Time (07/06/2017 11:24 AM EST) P athologist Signature PT 13.3 11.8 - 14.0 [facility] LABORATORY INR 1.0 0.9 - 1.1 [facility] [...] Shahid MD HEMATOLOGY ORDERABLES Performing Organization Address City/[facility]/[place] [address] (ABNORMAL) APTT (07/06/2017 11:24 AM EST) athologist Signature PTT 52 (H) 25 - 35 sec [facility] Shahid MD HEMATOLOGY ORDERABLES Performing Organization Address [facility]/ZIP Code Phon e Number [address] POCT Glucose (07/06/2017 11:02 AM EST) athologist Signature POC Glucose 187 65 - 199 [facility] Comment: Supplemental ranges: <140 mg/dL before meals <180 mg/dL all other times of the day Specimen Anatomical Collection Method Collection Time Receive d Time (Source) Location / / Volume Laterality Blood specimen 07/06/2017 11:02 7 (specimen) AM EST 11:02 AM EST Daphne Shahid MD POINT OF CARE TEST ORDERABLE S Performing Organization Address City/State/[place] [address] POCT Glucose (07/06/2017 10:18 AM EST) athologist Signature POC Glucose 193 65 - 199 [facility] mg/dL [facility] Comment: Supplemental ranges: <140 mg/dL before meals <180 mg/dL all other times of the day Specimen Anatomical Collection Method Collection Time Receive d Time (Source) Location / / Volume Laterality Blood specimen 07/06/2017 10:18 7 (specimen) AM EST 10:18 AM EST Daphne Shahid MD POINT OF CARE TEST ORDERABLE S Performing Organization Address City/State/[place] [address] POCT Glucose (07/06/2017 9:25 AM EST) athologist Signature POC Glucose 182 65 - 199 [facility] mg/dL [facility] Comment: Supplemental ranges: <140 mg/dL before meals <180 mg/dL all other times of the day Specimen Anatomical Collection Method Collection Time Receive d Time (Source) Location / / Volume Laterality Blood specimen 07/06/2017 9:25 AM 017 9:25 (specimen) EST AM EST Daphne Shahid MD POINT OF CARE TEST ORDERABLE S Performing Organization Address City/State/[place] [address] (ABNORMAL) Cardiac Enzymes (LEB/CGP) (07/06/2017 8:10 AM EST) athologist Signature Troponin-T 2.26 (H) 0.00 - [place] 0.00 ng/mL [facility] Comment: The 99th percentile for Troponin T is le ss than 0.01 ng/mL, any detectable cTnT concentration using this assay should be considered elevated. According to the third universal definit ion of myocardial infarction the following criteria with a clinical prese ntation consistent with acute myocardial ischemia meets the diagnosis for a myocardial infarction (SC). Detection of a rise and/or fall of [...] additional sample may be indicated. Reference: Third Pollock Definition of Myocardial Infarction. Journal of the [employer] 2012;60:1581-98 CK, Total 124 0 - 200 unit/L [facility] Specimen Anatomical Collection Method Collection Time Receive d Time (Source) Location / / Volume Laterality Blood specimen 07/06/2017 8:10 AM 017 8:23 (specimen) EST AM EST Resulting Agency Comment Spec In Lab Daphne Shahid MD CHEMISTRY ORDERABLES Performing Organization Address City/[facility]/[place] [address] Magnesium (07/06/2017 8:10 AM EST) P athologist Signature Magnesium 0.84 0.69 - 1.07 [facility] mmol/L [facility] Specimen Anatomical Collection Method Collection Time Receive d Time (Source) Location / / Volume Laterality Blood specimen 07/06/2017 8:10 AM 017 8:21 (specimen) EST AM EST Resulting Agency Comment Spec In Lab Daphne Shahid MD CHEMISTRY ORDERABLES Performing Organization Address City/[facility]/[place] [address] (ABNORMAL) Basic Metabolic Panel (non-fasting) (07/06/2017 8:10 AM EST) athologist Signature Glucose Lvl 199 65 - 199 [facility] mg/dL [facility] Comment: Diabetes: >=200 mg/dL plus symp toms BUN 16 10 - 20 mg/dL [facility] Creatinine 1.04 0.80 - 1.50 mg/dL [facility] [...] estions. Chloride 101 98 - 107 mmol/L [facility] CO2 27 22 - 31 mmol/L [facility] Anion Gap 13 5 - 15 mmol/L [facility] Calcium 8.1 (L) 8.5 - 10.5 mg/dL [facility] Estimated GFR >60 >=60 [facility] Comment: The reported eGFR should be multiplied b y 1.2 for patients. The MDRD is not an appropriate measure o f renal function for patients with body mass extremes or in patients with acute kidney failure. http://[employer]/DHnkdep http://[employer]/DHMCnkf Specimen Anatomical Collection Method Collection Time Receive d Time (Source) Location / / Volume Laterality Blood specimen 07/06/2017 8:10 AM 017 8:21 (specimen) EST AM EST Resulting Agency Comment Spec In Lab Daphne Shahid MD CHEMISTRY ORDERABLES Performing Organization Address City/[facility]/ZIP Code Phon e Number [address] POCT Glucose (07/06/2017 7:34 AM EST) P athologist Signature POC Glucose 198 65 - 199 [facility] mg/dL [facility] Comment: Supplemental ranges: <140 [...] [facility]/ZIP Code Phon e Number [address] POCT Glucose (07/06/2017 7:03 AM EST) P athologist Signature POC Glucose 181 65 - 199 [facility] mg/dL [facility] Comment: Supplemental ranges: <140 mg/dL before meals <180 mg/dL all other times of the day Specimen Anatomical Collection Method Collection Time Receive d Time (Source) Location / / Volume Laterality Blood specimen 07/06/2017 7:03 AM 12/12/2 017 7:03 (specimen) EST AM EST Daphne Shahid MD POINT OF CARE TEST ORDERABLE S Performing Organization Address City/State/ZIP Code Phon e Number [place] [id number] XR Chest PA or [...] Signature POC Glucose 172 65 - 199 [facility] mg/dL [facility] Comment: Supplemental ranges: <140 mg/dL before meals <180 mg/dL all other times of the day Specimen Anatomical Collection Method Collection Time Receive d Time (Source) Location / / Volume Laterality Blood specimen 07/06/2017 6:21 AM 017 6:21 (specimen) EST AM EST Daphne Shahid MD POINT OF CARE TEST ORDERABLE S Performing Organization Address City/State/ZIP Code Phon e Number [address] POCT Glucose (07/06/2017 5:08 AM EST) athologist Signature POC Glucose 154 65 - 199 [facility] mg/dL [facility] Comment: Supplemental ranges: <140 mg/dL before meals <180 mg/dL all other times of the day Specimen Anatomical Collection Method Collection Time Receive d Time (Source) Location / / Volume Laterality Blood specimen 07/06/2017 5:08 AM 017 5:08 (specimen) EST AM EST Daphne Shahid MD POINT OF CARE TEST ORDERABLE S Performing Organization Address City/State/ZIP Code Phon e Number [address] POCT Glucose (07/06/2017 4:05 AM EST) athologist Signature POC Glucose 142 65 - 199 [facility] mg/dL [facility] Comment: Supplemental ranges: <140 mg/dL before meals <180 mg/dL all other times of the day Specimen Anatomical Collection Method Collection Time Receive d Time (Source) Location / / Volume Laterality Blood specimen 07/06/2017 4:05 AM 017 4:05 (specimen) EST AM EST Daphne Shahid MD POINT OF CARE TEST ORDERABLE S Performing Organization Address City/State/[place] [address] POCT Glucose (07/06/2017 3:00 AM EST) [facility] P[facility] Glucose 116 65 - 199 [facility] mg/dL [facility] Comment: Supplemental ranges: <140 mg/dL before meals <180 mg/dL all other times of the day Specimen Anatomical Collection Method Collection Time Receive d Time (Source) Location / / Volume Laterality Blood specimen 07/06/2017 3:00 AM 017 3:00 (specimen) EST AM EST Daphne Shahid MD POINT OF CARE TEST ORDERABLE S Performing Organization Address City/[facility]/ZIP [facility] Phon e Number [address] Potassium (07/06/2017 2:20 AM EST) [facility] Potassium 3.9 3.5 - 5.0 [facility] mmol/L [facility]ORY Comment: Please note: ??Patients [...] Shahid MD CHEMISTRY ORDERABLES Performing Organization Address City/[facility]/ZIP [facility] Phon e Number [address] Differential, Automated (07/06/2017 2:20 AM EST) [facility] Neutrophils % 72.9 % [facility] Neutr Abs (ANC) 5.53 1.70 - [facility] 6.10 [facility] x10(3)/[facility] LABORATORY Lymphocytes % 16.4 % [facility] Lymphocytes Abs 1.2 0.9 - 3.2 [facility] x10(3)/[facility] LABORATORY Monocytes % 9.4 % [facility] Monocyte Abs 0.7 0.3 - 0.9 [facility] x10(3)/[facility] LABORATORY Eosinophils % 0.5 % [facility] Eosinophils Abs 0.0 0.0 - 0.4 [facility] x10(3)/[facility] LABORATORY Basophils % 0.4 % [facility] Basophils Abs 0.0 0.0 - 0.1 [facility] x10(3)/[facility] LABORATORY Immature Gran % 0.40 % [facility] Comment: Immature granulocytes(IG's)percentage an d absolute count will include metamyelocytes, myelocytes, and promyelo cytes. Blood smears from CBCs yielding IG's will be scanned manually for concor dance. If this scan disagrees with the automated IG or if promyelocytes are not ed, a manual differential will be performed. Melisa Gran Abs 0.03 0.00 - 0.04 x10(3)/[facility] LABORATORY Specimen Anatomical Collection Method Collection Time Receive d Time (Source) Location / / Volume Laterality Blood specimen 07/06/2017 2:20 AM 017 2:33 (specimen) EST AM EST Resulting Agency Comment Spec In Lab Daphne Shahid MD HEMATOLOGY ORDERABLES Performing Organization Address City/State/[place] [address] (ABNORMAL) Hemogram (07/06/2017 2:20 AM EST) Analysis Performed At Patho logist Time Signature WBC 7.6 4.0 - 9.5 [facility] x10(3)/[facility] LABORATORY RBC 4.52 (L) 4.58 - [facility] 5.54 [facility] x10(6)/[facility] LABORATORY Hemoglobin 13.4 (L) 13.7 - [facility] 16.5 gm/dL [facility] LABORATORY Hematocrit 39.7 (L) 40.5 - [facility] 48.5 % [facility] LABORATORY MCV 87.8 82.9 - [facility] 93.1 fL [facility] LABORATORY MCH 29.6 27.5 - [facility] 32[facility] pg [facility] LABORATORY MCHC 33.8 32.0 - [facility] 35.7 gm/dL [facility] LABORATORY Platelets 189 145 - 357 [facility] x10(3)/[facility] LABORATORY RDWSD 45.6 (H) 36.0 - [place] [facility] 45.0 [facility] LABORATORY RDWCV 14.3 (H) 11.4 - [facility] RYAN 13.8 % [facility] LABORATORY MPV 9.1 7.6 - 12.9 [facility] LABORATORY nRBC % Auto 0.0 % [facility] nRBC Abs Auto 0.000 0.000 - [place] 0.000 [facility] x10(3)/[facility] LABORATORY Specimen Anatomical Collection Method Collection Time Receive d Time (Source) Location / / Volume Laterality Blood specimen 07/06/2017 2:20 AM 017 2:33 (specimen) EST AM EST Resulting Agency Comment Spec In Lab Daphne Shahid MD HEMATOLOGY ORDERABLES Performing Organization Address City/[facility]/[place] [address] (ABNORMAL) APTT (07/06/2017 2:20 AM EST) P athologist Signature PTT 52 (H) 25 - 35 sec [facility] Shahid MD HEMATOLOGY ORDERABLES Performing Organization Address City/[facility]/ZIP Code Phon e Number [address] POCT Glucose (07/06/2017 2:20 AM EST) P athologist Signature POC Glucose 115 65 - 199 [facility] mg/dL [facility] LABORATORY Comment: Supplemental ranges: <140 mg/dL before meals <180 mg/dL all other times of the day Specimen Anatomical Collection Method Collection Time Receive d Time (Source) Location / / Volume Laterality Blood specimen 07/06/2017 2:20 AM 017 2:20 (specimen) EST AM EST Daphne Shahid MD POINT OF CARE TEST ORDERABLE S Performing Organization Address City/State/ZIP Code Phon e Number [place] [address] (ABNORMAL) Cardiac Enzymes (LEB/CGP) (07/06/2017 2:20 AM EST) athologist Signature Troponin-T 2.13 (H) 0.00 - [facility] 0.00 ng/mL [facility] LABORATORY Comment: The 99th percentile for Troponin T is le ss than 0.01 ng/mL, any detectable cTnT concentration using this assay should be considered elevated. According to the third universal definit ion of myocardial infarction the following criteria with a clinical prese ntation consistent with acute myocardial ischemia meets the diagnosis for a myocardial infarction (SC). Detection of a rise and/or fall of [...] additional sample may be indicated. Reference: Third Pollock Definition of Myocardial Infarction. Journal of the [employer] College [employer] 2012;60:1581-98 CK, Total 129 0 - 200 unit/L [facility] LABORATORY Specimen Anatomical Collection Method Collection Time Receive d Time (Source) Location / / Volume Laterality Blood specimen 07/06/2017 2:20 AM 017 2:33 (specimen) EST AM EST Resulting Agency Comment Spec In Lab Daphne Shahid MD CHEMISTRY ORDERABLES Performing Organization Address City/State/ZIP Code Phon e Number [place] [id number] (ABNORMAL) Hemoglobin A1c (07/06/2017 2:20 AM EST) Analysis Performed At Patho logist Time Signature Hemoglobin A1C 6.8 (H) 4.3 - 5.6 [place] [...] Mellitus, Diabetes Care 2013; 36: Suppl. 1, S67-31 Est Avg Gluc See note mg/dL [facility] [...] into estimated average glucose values. ??Diabetes Care 2008:31(8):3753-4558. Specimen Anatomical Collection Method Collection Time Receive d Time (Source) Location / / Volume Laterality Blood specimen 07/06/2017 2:20 AM 017 2:34 (specimen) EST AM EST Resulting Agency Comment Spec In Lab Daphne Shahid MD CHEMISTRY ORDERABLES Performing Organization Address City/State/[place] [address] (ABNORMAL) Lipid Panel (07/06/2017 2:20 AM EST) [facility] gist Method Time Signature Chol, Total 150 <=239 [facility] mg/dL [facility] LABORATORY Triglycerides 129 <=199 [facility] mg/dL [facility] LABORATORY HDL 32 (L) >=40 [facility] mg/dL [facility] LABORATORY LDL Cholesterol 92 <=190 [facility] mg/dL [facility] LABORATORY Chol/HDL Ratio 4.7 ratio [facility] LABORATORY Lipid See Note KATALINA Interpretation [facility] LABORATORY Comment: Lipid management should be guided by a p atient? s ASCVD risk, goals and preferences. ACC/AHA Guidelines recommend high intens ity statin if clinical ASCVD or LDL greater than or equal to 190 mg/dL. http://[email or web address].com/IMB-TBX-Pfblvzzpc Adults aged 40-75 with LDL 70-189 mg/dL should have their 10 year ASCVD risk estimated with the ACC/AHA ASCVD risk es timator http://tools.acc.org/SSDDK-Ebaz-Gzjzkurt r/ Statin should be discussed if risk [...] Shahid MD CHEMISTRY ORDERABLES Performing Organization Address City/[facility]/ZIP Code Phon e Number [address] POCT Glucose (07/06/2017 1:09 AM EST) P athologist Signature POC Glucose 121 65 - 199 KATALINA RYAN mg/dL [facility] LABORATORY Comment: Supplemental ranges: <140 [...] [facility]/[place] [address] POCT Glucose (07/06/2017 12:06 AM EST) athologist Signature POC Glucose 147 65 - 199 [facility] RYAN mg/dL [facility] LABORATORY Comment: Supplemental ranges: <140 [...] [facility]/[place] [address] (ABNORMAL) POCT Glucose (07/05/2017 10:56 PM EST) P athologist Signature POC Glucose 200 (H) 65 - 199 [facility] RYAN mg/dL [facility] LABORATORY Comment: Supplemental ranges: <140 [...] [facility]/[place] [address] (ABNORMAL) POCT Glucose (07/05/2017 10:05 PM EST) P athologist Signature POC Glucose 225 (H) 65 - 199 [facility] LABORATORY Comment: Supplemental ranges: <140 [...] [facility]/[place] [address] (ABNORMAL) POCT Glucose (07/05/2017 9:02 PM EST) P athologist Signature POC Glucose 301 (H) 65 - 199 [facility] mg/dL [facility] LABORATORY Comment: Supplemental ranges: <140 mg/dL before meals <180 mg/dL all other times of the day Specimen Anatomical Collection Method Collection Time Receive d Time (Source) Location / / Volume Laterality Blood specimen 07/05/2017 9:02 PM 017 9:02 (specimen) EST PM EST Daphne Shahid MD POINT OF CARE TEST ORDERABLE S Performing Organization Address City/State/[place] [address] XR Chest PA or [...] 474 ms MUSE SYSTEM (Bezet) Calculated P [place] 50 degrees MUSE SYSTEM Calculated R [place] -28 degrees MUSE SYSTEM Calculated T [place] 90 degrees MUSE SYSTEM INTERPRETATION Sinus tachycardia [...] (ABNORMAL) Differential, Automated (07/05/2017 8:20 PM EST) [facility] Method Time Signature Neutrophils % 88.4 % [facility] LABORATORY Neutr Abs (ANC) 9.08 (H) 1.70 - [facility] 6.10 [facility] x10(3)/[facility] L LABORATORY Lymphocytes % 7.0 % [facility] LABORATORY Lymphocytes Abs 0.7 (L) 0.9 - 3.2 [facility] x10(3)/[facility] LABORATORY Monocytes % 3.7 % [facility] LABORATORY Monocyte Abs 0.4 0.3 - 0.9 [facility] x10(3)/[facility] LABORATORY Eosinophils % 0.1 % [facility] LABORATORY Eosinophils Abs 0.0 0.0 - 0.4 [facility] x10(3)/[facility] LABORATORY Basophils % 0.2 % [facility] LABORATORY Basophils Abs 0.0 0.0 - 0.1 [facility] x10(3)/[facility] LABORATORY Immature Gran % 0.60 % [facility] LABORATORY Comment: Immature granulocytes(IG's)percentage an d absolute count will include metamyelocytes, myelocytes, and promyelo cytes. Blood smears from CBCs yielding IG's will be scanned manually for concor dance. If this scan disagrees with the automated IG or if promyelocytes are not ed, a manual differential will be performed. Melisa Gran Abs 0.06 (H) 0.00 - 0.04 x10(3)/[facility] LABORATORY Specimen Anatomical Collection Method Collection Time Receive d Time (Source) Location / / Volume Laterality Blood specimen 07/05/2017 8:20 PM 017 8:27 (specimen) EST PM EST Resulting Agency Comment Spec In Lab Daphne Shahid MD HEMATOLOGY ORDERABLES Performing Organization Address City/State/[place] [address] (ABNORMAL) Hemogram (07/05/2017 8:20 PM EST) Analysis Performed At Patho logist Time Signature WBC 10.3 (H) 4.0 - 9.5 [facility] x10(3)/[facility] LABORATORY RBC 4.64 4.58 - [place] RYAN 5.54 [facility] x10(6)/[facility] LABORATORY Hemoglobin 14.1 13.7 - [facility] 16.5 gm/dL [facility] LABORATORY Hematocrit 40.8 40.5 - [facility] 48.5 % [facility] LABORATORY MCV 87.9 82.9 - [facility] 93.1 [facility] LABORATORY MCH 30.4 27.5 - [facility] 32.1 pg [facility] LABORATORY MCHC 34.6 32.0 - [facility] 35.[facility] gm/dL [facility] LABORATORY Platelets 204 145 - 357 [facility] x10(3)/[facility] LABORATORY RDWSD 46.1 (H) 36.0 - [facility] 45.0 [facility] LABORATORY RDWCV 14.5 (H) 11.4 - [facility] 13.8 % [facility] LABORATORY MPV 9.7 7.6 - 12.9 [facility] LABORATORY nRBC % Auto 0.0 % [facility] LABORATORY nRBC Abs Auto 0.000 0.000 - [facility] 0.000 [facility] x10(3)/[facility] LABORATORY Specimen Anatomical Collection Method Collection Time Receive d Time (Source) Location / / Volume Laterality Blood specimen 07/05/2017 8:20 PM 017 8:27 (specimen) EST PM EST Resulting Agency Comment Spec In Lab Daphne Shahid MD HEMATOLOGY ORDERABLES Performing Organization Address City/State/[place] [address] APTT (07/05/2017 8:20 PM EST) P athologist Signature PTT 32 25 - 35 sec [facility] [...] Address City/State/[place] [address] (ABNORMAL) Cardiac Enzymes (LEB/CGP) (07/05/2017 8:20 PM EST) P athologist Signature Troponin-T 2.11 (H) 0.00 - [facility] 0.00 ng/mL [facility] LABORATORY Comment: The 99th percentile for Troponin T is le ss than 0.01 ng/mL, any detectable cTnT concentration using this assay should be considered elevated. According to the third universal definit ion of myocardial infarction the following criteria with a clinical prese ntation consistent with acute myocardial ischemia meets the diagnosis for a myocardial infarction (SC). Detection of a rise and/or fall of [...] additional sample may be indicated. Reference: Third Pollock Definition of Myocardial Infarction. Journal of the [employer] College of Cardiology 2012;60:1581-98 CK, Total 149 0 - 200 unit/L [facility] LABORATORY Specimen Anatomical Collection Method Collection Time Receive d Time (Source) Location / / Volume Laterality Blood specimen 07/05/2017 8:20 PM 017 8:27 (specimen) EST PM EST Resulting Agency Comment Spec In Lab Daphne Shahid MD CHEMISTRY ORDERABLES Performing Organization Address City/[facility]/ZIP Code Phon e Number [address] (ABNORMAL) Magnesium (07/05/2017 8:20 PM EST) P athologist Signature Magnesium 0.68 (L) 0.69 - 1.07 [facility] mmol/L [facility] LABORATORY Specimen Anatomical Collection Method Collection Time Receive d Time (Source) Location / / Volume Laterality Blood specimen 07/05/2017 8:20 PM 017 8:27 (specimen) EST PM EST Resulting Agency Comment Spec In Lab Daphne Shahid MD CHEMISTRY ORDERABLES Performing Organization Address City/[facility] [place] [address] (ABNORMAL) Basic Metabolic Panel (non-fasting) (07/05/2017 8:20 PM EST) athologist Signature Glucose Lvl 321 (H) 65 - 199 [facility] mg/dL [facility] LABORATORY Comment: Diabetes: >=200 mg/dL plus symp toms BUN 20 10 - 20 mg/dL [facility] LABORATORY Creatinine 1.12 0.80 - 1.50 mg/dL [facility] LABORATORY Sodium 139 135 - [...] estions. Chloride 98 98 - 107 mmol/L [facility] LABORATORY CO2 27 22 - 31 mmol/L [facility] LABORATORY Anion Gap 14 5 - 15 mmol/L [facility] LABORATORY Calcium 8.1 (L) 8.5 - 10.5 mg/dL [facility] LABORATORY Estimated GFR >60 >=60 [facility] LABORATORY Comment: The reported eGFR should be multiplied b y 1.2 for patients. The MDRD is not an appropriate measure o f renal function for patients with body mass extremes or in patients with acute kidney failure. http://[employer]/DHnkdep http://[employer]/DHMCnkf Specimen Anatomical Collection Method Collection Time Receive d Time (Source) Location / / Volume Laterality Blood specimen 07/05/2017 8:20 PM 017 8:27 (specimen) EST PM EST Resulting Agency Comment Spec In Lab Daphne Shahid MD CHEMISTRY ORDERABLES Performing Organization Address City/State/ZIP Code Phon e Number [address] (ABNORMAL) POCT Glucose (07/05/2017 7:32 PM EST) P athologist Signature POC Glucose 296 (H) 65 - 199 [facility] mg/dL [facility] LABORATORY Comment: Supplemental ranges: <140 mg/dL before meals <180 mg/dL all other times of the day Specimen Anatomical Collection Method Collection Time Receive d Time (Source) Location / / Volume Laterality Blood specimen 07/05/2017 7:32 PM 017 7:32 (specimen) EST PM EST Daphne Shahid MD POINT OF CARE TEST ORDERABLE S Performing Organization Address City/State/[place] [address] CARDIAC CATHETERIZATION (07/05/2017 6:47 PM EST) Specimen (Source) Anatomical Location Collection Method / Collectio n Time Received Time / Laterality Volume Narrative CARDIOMAC SYSTEM - 07/05/2017 7:27 PM ES T ?[facility] ? Cardiac Cathete rization/Intervention Report ? Patient Name: Natalya, Gregory ? Procedure Date: 07/05/2017 ? A #: [id number] ? Primary Physician: Clarisa, Jet T ? Case #: [id number] ? File Name: [id number] ? Catheterization Order Number: [id number] ? [facility] ? Final Report [place], [place] ? Patient Name: ? Gregory Natalya ?ID#: ?[id number] ? : ?1945 ? Procedure Date: ? July 05 ?Case #: ? [id number] ? Room: ? 6 ? Case Physician: [...] presented with: non -STEMI (w/i 7 days). [place] ?[employer] angina c lass was IV. [...] site angio graphy and IABP insertion in research laboratory technician. ? Jet Mckenna M.D. ? Electronically Signed by: Jet bunch M.D. ? Report Finalized: 07/05/2017 ??19:23 ? Report Last Ammended: 10/26/2017 ??10:29 ? Procedure Note Jet Mckenna MD - 10/26/2017Formatt ing of this note might be different from the original. [facility] Cardiac Catheterization/Intervention Re port Patient Name: Gregory Hoang Procedure Date: 07/05/2017 A #: [id number] Primary Physician: Jet Mckenna Case #: [id number] File Name: [id number] Catheterization Order Number: [id number] [facility] Final Report [place], [place] Patient Name: Gregory Hoang ID#: [id number] : 1945 Procedure Date: July 05, [...] presented with: non-STEMI ( w/i 7 days). [place] [employer] angina class was IV. No [...] present for the entire procedure. Dr. Jet Mcknena M.D. was present d uring the moderate sedation intraservice time as documented by the sedation nurse. Case time = 00:42. Dr. Jet Mckenna M.D. performed the coronary angiography, left heart catheterization, access site angiograph y and IABP insertion in research laboratory technician. Jet Mckenna M.D. Electronically Signed [...] Mccollum ? (Age): 1945(72y) Med Rec#: ? [id number] ?Sex: ?M ? [place] [facility]Ht / Wt: ??173(cm)/86(kg) Pt. Loc: ?CCU ? BSA: ?2 Study Date: ?? 07/05/2017 ?Pt. Type: Inpatient Tape: ? Referring: Daphne Shahid ([id number]) Referring: MANDA ALCANTAR Reading: Blade Preston ([id number]) Habilitation Training Specialist: Dayami Paula BA, RDCS Diagnosis: *ICD-10-PCS Non-ST [...] E-wave Vmax ?0.8 ?m/sec ? MV deceleration [id number] ?msec ? MV A-wave Vmax ?0.8 ?m/sec [...] ? Mid-Inferior ?Akinetic ? Mid-Inferoseptal ?Hypokinetic ? [place]-Septal ? Akinetic ? [place]-Anterior ? Hypokinetic ? [place]-Lateral ?Hypokinetic ? [place]-Inferior ? Akinetic ? [place]-Tip ?Akinetic ? This report has been electronically sign ed by: _ Blade Preston MD ? 07/06/2017 08 :53:15 Images reviewed and interpretation verif ied [facility] Cardiac Ultrasound Laboratory Procedure Note Blade Preston MD - 07/06/2017Formatt ing of this note might be different from the original. Procedure: Transthoracic Echocardiogram Patient: NATALYA MCBRIDE(Age): [birth year]72y) Med Rec#: [id number] Sex: M [place] [facility] [place] Ht / Wt: 173(cm)/86(kg) Pt. Loc: CCU BSA: 2 Study Date: 07/05/2017 Pt. Type: Inpatie nt Tape: Referring: Daphne Shahid ([id number]) Referring: MANDA ALCANTAR Reading: Blade Preston ([id number]) Habilitation Training Specialist: Dayami Paula BA, [facility] Diagnosis: *ICD-10-PCS Non-ST elevation (NSTEMI) m [...] MV E-wave Vmax 0.8 m/sec MV deceleration [id number] msec MV A-wave Vmax 0.8 m/sec MV [...] Hypokinetic Mid-Posterolateral Hypokinetic Mid-Inferior Akinetic Mid-Inferoseptal Hypokinetic [place]-Septal Akinetic [place]-Anterior Hypokinetic [place]-Lateral Hypokinetic [place]-Inferior Akinetic [place]-Tip Akinetic This report has been electronically sign ed by: _ Blade Preston MD 07/06/2017 08:53:15 Images [facility] Daphne Shahid MD ECHO ORDERABLES Performing Organization Address City/State/ZIP Code Phon e Number [facility] Differential, Automated (07/05/2017 4:55 PM EST) P athologist Signature Neutrophils % 77.0 % [facility] LABORATORY Neutr Abs (ANC) 5.26 1.70 - [facility] 6.10 [facility] x10(3)/[facility] LABORATORY Lymphocytes % 13.3 % [facility] LABORATORY Lymphocytes Abs 0.9 0.9 - 3.2 [facility] x10(3)/[facility] LABORATORY Monocytes % 8.2 % [facility] LABORATORY Monocyte Abs 0.6 0.3 - 0.9 [facility] x10(3)/[facility] LABORATORY Eosinophils % 0.7 % [facility] LABORATORY Eosinophils Abs 0.0 0.0 - 0.4 [facility] x10(3)/[facility] LABORATORY Basophils % 0.4 % [facility] LABORATORY Basophils Abs 0.0 0.0 - 0.1 [facility] x10(3)/[facility] LABORATORY Immature Gran % 0.40 % [facility] LABORATORY Comment: Immature granulocytes(IG's)percentage an d absolute count will include metamyelocytes, myelocytes, and promyelo cytes. Blood smears from CBCs yielding IG's will be scanned manually for concor dance. If this scan disagrees with the automated IG or if promyelocytes are not ed, a manual differential will be performed. Melisa Gran Abs 0.03 0.00 - 0.04 x10(3)/[facility] LABORATORY Specimen Anatomical Collection Method Collection Time Receive d Time (Source) Location / / Volume Laterality Blood specimen 07/05/2017 4:55 PM 017 5:24 (specimen) EST PM EST Resulting Agency Comment Spec In Lab Daphne Shahid MD HEMATOLOGY ORDERABLES Performing Organization Address City/State/[place] [address] (ABNORMAL) Hemogram (07/05/2017 4:55 PM EST) Analysis Performed At Patho logist Time Signature WBC 6.8 4.0 - 9.5 [facility] x10(3)/[facility] LABORATORY RBC 4.67 4.58 - [facility] 5.54 [facility] x10(6)/[facility] LABORATORY Hemoglobin 14.0 13.7 - [facility] 16.5 gm/dL [facility] LABORATORY Hematocrit 41.0 40.5 - [facility] 48.5 % [facility] LABORATORY MCV 87.8 82.9 - [facility] 93.1 fL [facility] LABORATORY MCH 30.0 27.5 - [place]INA DAVIS 32.1 pg [facility] LABORATORY MCHC 34.1 32.0 - K[place]ALINA DAVIS 35.7 gm/dL [facility] LABORATORY Platelets 197 145 - 357 KATALINA DAVIS x10(3)/[facility] LABORATORY RDWSD 46.4 (H) 36.0 - [place] DAVIS 45.0 [facility] LABORATORY RDWCV 14.5 (H) 11.4 - [place] RYAN 13.8 % [facility] LABORATORY MPV 9.7 7.6 - 12.9 K[place]ALINA DAVIS [facility] LABORATORY nRBC % Auto 0.0 % [facility] LABORATORY nRBC Abs Auto 0.000 0.000 - [place] DAVIS 0.000 [facility] x10(3)/[facility] LABORATORY Specimen Anatomical Collection Method Collection Time Receive d Time (Source) Location / / Volume Laterality Blood specimen 07/05/2017 4:55 PM 017 5:24 (specimen) EST PM EST Resulting Agency Comment Spec In Lab Daphne Shahid MD HEMATOLOGY ORDERABLES Performing Organization Address City/State/ZIP Code Phon e Number [facility] [place] [address] (ABNORMAL) Cardiac Enzymes (LEB/CGP) (07/05/2017 4:55 PM EST) P athologist Signature Troponin-T 1.69 (H) 0.00 - KATALINA DAVIS 0.00 ng/mL [facility] LABORATORY Comment: The 99th percentile for Troponin T is le ss than 0.01 ng/mL, any detectable cTnT concentration using this assay should be considered elevated. According to the third universal definit ion of myocardial infarction the following criteria with a clinical prese ntation consistent with acute myocardial ischemia meets the diagnosis for a myocardial infarction (SC). Detection of a rise and/or fall of [...] additional sample may be indicated. Reference: Third Pollock Definition of Myocardial Infarction. Journal of the [place] [employer] 2012;60:1581-98 CK, Total 191 0 - 200 unit/L [facility] LABORATORY Specimen Anatomical Collection Method Collection Time Receive d Time (Source) Location / / Volume Laterality Blood specimen 07/05/2017 4:55 PM 017 5:56 (specimen) EST PM EST Resulting Agency Comment Spec In Lab Daphne Shahid MD CHEMISTRY ORDERABLES Performing Organization Address City/[facility] [place] [address] (ABNORMAL) pro-Brain Natriuretic Peptide (07/05/2017 4:55 PM EST) athologist Signature ProBNP 1,598 (H) <=125 [facility] pg/mL [facility] LABORATORY Specimen Anatomical Collection Method Collection Time Receive d Time (Source) Location / / Volume Laterality Blood specimen 07/05/2017 4:55 PM 017 5:24 (specimen) EST PM EST Resulting Agency Comment Spec In Lab Daphne hSahid MD CHEMISTRY ORDERABLES Performing Organization Address City/[facility]/[place] [address] Magnesium (07/05/2017 4:55 PM EST) P athologist Signature Magnesium 0.78 0.69 - 1.07 [facility] RYAN mmol/L [facility] LABORATORY Specimen Anatomical Collection Method Collection Time Receive d Time (Source) Location / / Volume Laterality Blood specimen 07/05/2017 4:55 PM 017 5:24 (specimen) EST PM EST Resulting Agency Comment Spec In Lab Daphne Shahid MD CHEMISTRY ORDERABLES Performing Organization Address City/[facility]/[place] [address] (ABNORMAL) Basic Metabolic Panel (non-fasting) (07/05/2017 4:55 PM EST) P athologist Signature Glucose Lvl 230 (H) 65 - 199 [facility] mg/dL [facility] LABORATORY Comment: Diabetes: >=200 mg/dL plus symp toms BUN 19 10 - 20 mg/dL [facility] LABORATORY Creatinine 1.04 0.80 - 1.50 mg/dL [facility] LABORATORY Sodium 142 135 - [...] estions. Chloride 100 98 - 107 mmol/L [facility] LABORATORY CO2 28 22 - 31 mmol/L [facility] LABORATORY Anion Gap 14 5 - 15 mmol/L [facility] LABORATORY Calcium 8.5 8.5 - 10.5 mg/dL [facility] LABORATORY Estimated GFR >60 >=60 [facility] LABORATORY Comment: The reported eGFR should be multiplied b y 1.2 for patients. The MDRD is not an appropriate measure o f renal function for patients with body mass extremes or in patients with acute kidney failure. [email or web address] http://[employer]/DHMCnkf Specimen Anatomical Collection Method Collection Time Receive d Time (Source) Location / / Volume Laterality Blood specimen 07/05/2017 4:55 PM 017 5:24 (specimen) EST PM EST Resulting Agency Comment Spec In Lab Daphne Shahid MD CHEMISTRY ORDERABLES Performing Organization Address City/State/[place] [address] (ABNORMAL) APTT (07/05/2017 4:55 PM EST) P athologist Signature PTT 41 (H) 25 - 35 sec [facility] [...] Shahid MD HEMATOLOGY ORDERABLES Performing Organization Address City/[facility]/ZIP Code Phon e Number [address] (ABNORMAL) POCT Glucose (07/05/2017 4:53 PM EST) P athologist Signature POC Glucose 208 (H) 65 - 199 [facility] mg/dL [facility] LABORATORY Comment: Supplemental ranges: <140 [...] [facility]/[place] [address] EKG 12 Lead (07/05/2017 4:32 PM EST) Component Value Ref Range Test Analysis Performed Pathologis t Method Time At Signature Ventricular rate 97 BPM MUSE SYSTEM Atrial Rate 97 BPM MUSE SYSTEM P-R Interval 148 ms MUSE SYSTEM QRS Duration 96 ms MUSE SYSTEM Q-T Interval 364 ms MUSE SYSTEM QTC Calculated 462 ms MUSE SYSTEM (Bezet) Calculated P [place] 48 degrees MUSE SYSTEM Calculated R [place] -33 degrees MUSE SYSTEM Calculated T [place] 98 degrees MUSE SYSTEM INTERPRETATION Normal sinus [...] Coronary atherosclerosis of unspecified type of vessel, [place] or graft Cardiomyopathy, ischemic Other specified forms [...] post-op day 1 in the AM Give NM if unable to take PO, Routine Given [...] dose on Wed07/07/17 at 2100, Until Discontinued, Export teeth, Routine Given 07/08/2017 10:06 PM EST [...] or norepinephrine is ineffective. Call pager # [phone] if initiated. Rate/Dose Change 07/08/2017 7:01 PM [...] Starting on [place] 07/08/17 at 0427, Until [place] 07/11/17 at 0909, Per Protocol, BOLUS order. [...] if phenyleprine and/or vasopressin ineffective.Call pager # [phone] if initiated., Routine Rate/Dose Change 07/09/2017 1:24 [...] 2.0 L/min/M2. Maximum volume 2 L. Call warehouse technician for additional fluid orders: pager #[phone]. Rate/Dose Verify 07/08/2017 4:00 AM EST 100 [...] post-op day 1 in the AM Give NM if unable to take PO, Routine atorvastatin [...] mEq (COMPLETED) 0827 (Given - Provider: More Lutehr RN) 20 mEq, Oral, ONCE, 1 dose, [...] post-op day 1 in the AM Give NM if unable to take PO
Routine Group [...]
Routine documented in this encounter Care Teams Company Laundry Worker Relationship Specialty Start Date End Date Lovely Vicente MD PCP - General 04/16/[address] [place] [address] [address] [place] [address] documented as of this encounter
--- OUTSIDE RECORDS SUMMARY | 2022-02-16 08:19 | XMS_ITS | Encounter Summary ---
:1945 Author Organization [facility] [place] [address] Care Team Providers Name Role Phone Lovely Vicente MD Primary Care Provider Encounter Details Date Type Department Care Team Description 07/08/2017 Orders Only Cardiology [facility] [place] [address] Social History Tobacco Use Types Packs/Day [...] [facility] er Cardiology Dept [place], [place] [address] (Wo rk) 03/26/2022 Office Visit Cardiology Vitaliy Nobles MD [facility] CARDIOLOGY [place], [place] [address] (Wo rk) documented as of [...] Mccollum ? (Age): 1945(72y) Med Rec#: ? [id number] ?Sex: ?M ? Site Loc: ? Ht / Wt: ??(cm)/ (kg) ? Pt. Loc: ? Study Date: ?? 07/07/2017 ?Pt. Type: Tape: ? Referring: Yuan Retana Reading: Yifan Perez MD ([id number]) Performing: Yifan Perez MD ([id number]) Diagnosis: SUMMARY: 1. [facility] and [...] ? Mid-Inferior ?Hypokinetic ? Mid-Inferoseptal ?Hypokinetic ? [place]-Septal ? Hypokinetic ? [place]-Anterior ? Hypokinetic ? [place]-Lateral ?Hypokinetic ? [place]-Inferior ? Hypokinetic ? [place]-Tip ?Not Seen ? This report has been electronically sign ed by: _ Yifan Perez MD ? 07/08/2017 12 :25:18 Images reviewed and interpretation ver ied [facility] Cardiac Ultrasound Laboratory Procedure Note Yifan Perez MD - 07/08/2017Formatt ing of this note might be different from the original. Procedure: Transesophageal Echocardiogra m Patient: NATALYA MCBRIDE(Age): [birth year]72y) Med Rec#: [id number] Sex: M Site Loc: Ht / Wt: (cm)/ (kg) Pt. Loc: Study Date: 07/07/2017 Pt. Type: Tape: Referring: Yuan Retana Reading: Yifan Perez MD ([id number]) Performing: Yifan Perez MD ([id number]) Diagnosis: SUMMARY: 1. Intraoperative AVELINO performed at [...] Hypokinetic Mid-Posterolateral Hypokinetic Mid-Inferior Hypokinetic Mid-Inferoseptal Hypokinetic [place]-Septal Hypokinetic [place]-Anterior Hypokinetic [place]-Lateral Hypokinetic [place]-Inferior Hypokinetic [place]-Tip Not Seen This report has been electronically sign ed by: _ Yifan Perez MD 07/08/2017 12:25:18 Images reviewed and interpretation elvie hwang [facility] Cardiac Ultrasound Laboratory Unknown ECHO ORDERABLES Performing Organization Address City/State/ZIP Code Phon e Number [facility] documented in this encounter Visit Diagnoses Not on filedocumented in this encounter Care Teams Vessel Captain Relationship Specialty Start Date End Date Lovely Vicente MD PCP - General 04/16/[address] [place] [address] documented as of this encounter
--- OUTSIDE RECORDS SUMMARY | 2022-02-16 08:20 | XMS_ITS | Encounter Summary ---
:1945 Author Organization [facility] Address [facility] [place] [address] Care Team Providers Name Role Phone Lovely Vicente MD Primary Care Provider Reason for Visit Auth/Cert Specialty Diagnoses / Procedures Referred By Contact Refer red To Contact Diagnoses STEMI (ST elevation myocardial infarction) NSTEMI STEMI Procedures CARDIAC CATHETERIZATION NAYE IPI Referral ID Status Reason Start Date Expiration Date Visits Requ ested Visits Authorized [id number] 1 1 Encounter Details Date Type Department Care Team Description 07/07/2017 Surgery Main Operating Room Yuan Webber, @ CABG, USING ARTERIAL Barbara Ocampo MD GRAFT;SINGLE ARTERIAL Hospital [facility] GRAFT (WRVU 33.75) [facility] [address] [place] [address] SURGERY [phone] [place], [place] [address] (Wo rk) Social History Tobacco [...] in this encounter Discharge Summaries Martha Teague, STOCK CHECKER - 07/14/2017 9:38 AM EST Inpatient - Discharge Summary Patient Name: Gregory Hoang Patient Age: 72 y.o. Birthdate: 1945 Language: Tunisian Race: White Ethnicity: Not nor Admit Date: [...] , @ 1:20p Patient to follow-up with Food Technology Teacher/heart failure team in one week. An appointment will be made for you. You may call [phone] Patient to follow-up with Cardiac Surgery, Dr. Yuan Webber, in ~ 4 weeks with CXR, EKG. Inpatient Provider Contact Information: [facility] Section of Cardiac Surgery [facility] [place] [address] FAX [phone] Discharge Diagnoses (Hospital Problems) Primary Diagnoses: CAD [...] SETUP performed by Manny Mcknight MD at [facility] OR ??? PRO CABG, ARTERIAL, SINGLE N/A 07/07/2017 @CABG, USING ARTERIAL GRAFT;SINGLE ARTERIAL GRAFT (WRVU 33.75) performed by Yuan Webber MD at [facility] OR ??? PRO CABG, ARTERY-VEIN, TWO N/A 07/07/2017 @CABG, TWO VENOUS GRAFTS & ARTERIAL GRAFT (WRVU 7.93) performed by Yuan Webber MD at [facility] OR ??? PRO COLONOSCOPY, REMV LESN, SNARE 01/16/2014 COLONOSCOPY, POLYPECTOMY, REMOVAL LESION BY SNARE performed by Nohemi Jaimes MD at [facility] ENDOSCOPY ??? PRO ENDOSCOPY W/VIDEO-ASST VEIN HARVEST, CABG Right 07/07/2017 ENDOSCOPIC HARVEST VEIN(S) FOR CABG (WRVU 0.31) performed by Yuan Webber MD at [facility] OR ??? PRO THYROIDECTOMY 03/28/2013 THYROIDECTOMY, TOTAL OR COMPLETE performed by Manny Mcknight MD at [facility] OR Prior To Admission Medications Prescriptions Prior to Admission Medication Sig Dispense Refill Last Dose ??? levothyroxine (SYNTHROID) 175 mcg Tablet Take 1 tablet by mouth daily. 90 tablet 3 07/05/2017 [id number] ??? ascorbic acid, vitamin C, (VITAMIN C) [...] hospital and ruled infor non-ST segment elevation MA. This almost certainly represents the residual of [...] Gregory Hoang was admitted to [facility] on 07/05/2017 via the Cardiology Service. During his hospital course, he was taken emergently to the open hearth laborer for an ongoing STEMI. An IABP was [...] not take or discontinue any prescription or adds-zeh-edanvoa medications without asking your doctor or pharmacist [...] day to have your insulin doses adjusted. [facility] [place] Endocrine clinic office Discharge [...] Yuan Webber and/or the Cardiac Surgery Physician Hardwood Sawyer Team may be reached at . Weight: [...] Dr. Yuan Webber. You may use a [place] Track or treadmill but avoid any pulling [...] friends, go to a movie, go to hindu, etc. Heavy activities: No hunting, skiing, jogging, snow shoveling, snowmobiling, lawn mowing, swimming, golf or tennis until after your return appointment with the surgeon. Do not ride motorcycles, [employer]'s tractors or horses. Avoid the use of [...] should resume a low fat, low cholesterol, [place] Heart Association Diet/Diabetic diet. Driving: No driving [...] , @ 1:20p Patient to follow-up with Food Technology Teacher/heart failure team in one week. Appointment will be made for you. You may call [phone] Patient to follow-up with Cardiac Surgery, Dr. Yuan Webber, in ~ 4 weeks with CXR, EKG. Cardiac Rehabilitation: Gregory Hoang was seen today regarding participation in the outpatient Phase 2 Cardiac Rehabilitation at [facility]. The patient agrees to a referral to this program. The referral will be sent at discharge and the patient should be contacted by the Program within 1- 2 weeks from discharge. ?? Future Appointments and Orders Future Appointments Provider Department Dept Phone 09/07/2017 3:00 PM LAB, THREE L Lab 3L [facility] [phone] 09/07/2017 4:00 PM Luz Prescott MD Endocrinology at [place] [phone] Future Orders Complete By Expires EKG 12 Lead [EKG1 Custom] 08/14/2017 02/13/2018 Process Instructions: Scheduling Instructions: Questions: Which DH location will this be performed?: [place] Is a rhythm strip needed?: No If EKG Reason is Pre-op Evaluation, indicate diagnosis for surgery.: XR Chest PA & Lateral (Generic) [[id number] Custom] 08/14/2017 02/13/2018 Process Instructions: Scheduling Instructions: Questions: Where will study be performed?: [place] [facility] Portable exam?: Reason for exam and clinical history: CABG x 3 Other pertinent information: Stat read required?: Date of injury if applicable: Requested Time: Referral to Cardiac Rehab [SNT367 Custom] As directed Process Instructions: If no progress note charted, please enter Clinical details in comments. Scheduling Instructions: Questions: My question or request is: s/p CABG. Cardiac rehab at [facility] Referral to Home Health - at DISCHARGE [XMM6609 CPT(R)] As directed Process Instructions: Scheduling Instructions: Comments: DOCUMENTATION FOR VNA SERVICES (INCLUDING THOSE PATIENTS WITH MEDICARE COVERAGE REQUIRING HOME VNA SERVICES AND/OR HOSPICE SERVICES) PATIENT'S LOCATION: Gregory Hoang [address] [place] [address] [place] [id number] (home) Telephone Information: Motion Study Technician's Name: self In discussion with the attending physician, it is certified that this patient is under their care and that they, or a Nurse Practitioner, or Physician Hardwood Sawyer who is working directly with them, had [...] [facility] ([facility] [place] [facility]-is in [place] PHONE: [phone] FAX: [phone] RN orders: Cardiopulmonary assessment, incisional assessment, assess vital signs, assessment of rehab progress, medication management and effectiveness, home safety evaluation. Please draw INR if indicated and send result to:Dr Vicente [phone] PT ORDERS: Continue rehab for endurance, gait stability and strength with mobility and transfers. Home safety evaluation. Home exercise program if appropriate. Start of Care Date:24-48 hours after discharge SPECIAL INSTRUCTIONS: For any follow up questions, needs, or issues please call the Cardiac Surgery Office at [phone] FOR MEDICARE ONLY: (please delete this section [...] noted. Questions: Agency name and contact information: [facility] Patient location post discharge: home What services are requested: Registered Nurse Physical Therapy Start date: Responsible MD post discharge contact info: PCP Arrangements for VNA/home care: As above. VN RN OR PCP TO PLEASE REMOVE CHEST TUBE SUTURES ON OR AFTER 07/17/2017 Signed: Martha Teague APRN [facility] Section of Cardiac Surgery [facility] [place] [facility] [address] FAX [phone] Date: 07/14/2017 CC: MD Ivania Cr Betsy, [place] [address] [place] [phone] documented in this encounter Discharge Instructions Discharge [...] day to have your insulin doses adjusted. [facility] [place] Endocrine clinic office Patient [...] not take or discontinue any prescription or mkfa-xxd-uutgouw medications without asking your doctor or pharmacist [...] day to have your insulin doses adjusted. [facility] [place] Endocrine clinic office ? [...] Yuan Webber and/or the Cardiac Surgery Physician Hardwood Sawyer Team may be reached at . ?? [...] Dr. Yuan Webber. You may use a [place] Track or treadmill but avoid any pulling [...] friends, go to a movie, go to hindu, etc. ?? Heavy activities: No hunting, skiing, jogging, snow shoveling, snowmobiling, lawn mowing, swimming, golf or tennis until after your return appointment with the surgeon. Do not ride motorcycles, [employer]'s tractors or horses. Avoid the use of [...] should resume a low fat, low cholesterol, [place] Heart Association Diet/Diabetic diet. ?? Driving: No [...] @ 1:20p ?? Patient to follow-up with Food Technology Teacher/heart failure team in one week. An appointment has been made for you, you can call [phone] ?? Patient to follow-up with Cardiac Surgery, Dr. Yuan Webber, in ~ 4 weeks with CXR, EKG. ? Cardiac Rehabilitation: Gregory Hoang??was seen today regarding participation in the outpatient Phase 2 Cardiac Rehabilitation at [facility]. ?? The patient agrees to a referral to this program.? The referral will be sent at discharge and the patient should be contacted by the Program within 1- 2 weeks from discharge. ? Future Appointments and Orders Future Appointments Provider Department Dept Phone ?? 09/07/2017 3:00 PM LAB, THREE L Lab 3L [facility] [phone] ?? 09/07/2017 4:00 PM Luz Prescott MD Endocrinology at [place] [phone] Future Orders Complete By Expires ?? EKG 12 Lead [EKG1 Custom] 08/14/2017 02/13/2018 ?? Process Instructions: ? Scheduling Instructions: ? Questions: ? Which location will this be performed?: [place] ?? Is a rhythm strip needed?: No ?? If EKG Reason is Pre-op Evaluation, indicate diagnosis for surgery.: ?? XR Chest PA & Lateral (Generic) [[id number] Custom] 08/14/2017 02/13/2018 ?? Process Instructions: ? Scheduling Instructions: ? Questions: ? Where will study be performed?: [place] [facility] ?? Portable exam?: ?? Reason for exam and clinical history: CABG x 3 ?? Other pertinent information: ?? Stat read required?: ?? Date of injury if applicable: ?? Requested Time: ?? Referral to Cardiac Rehab [NFI877 Custom] As directed ? Process Instructions: ?? If no progress note charted, please enter Clinical details in comments. ?? Scheduling Instructions: ? Questions: ? My question or request is: s/p CABG. Cardiac rehab at [facility] ? Arrangements for VNA/home care: As above. [...] RN - 07/14/2017 2:34 PM EST The patient/resources representative has been provided a list of Home Health Agencies/DME vendors which serve their preferred geographic area. A letter describing our affiliations was reviewed with them and theywere educated about their right to choose where referrals are placed. Patient requests referral to [facility]. PHONE: [phone] FAX: [phone] Expected date of discharge: 07/14 Referral routed to the Manager Water [employer] for matching with agency/vendor and to provide [...] day to have your insulin doses adjusted. [facility] Endocrine clinic office Kathie Carrera APRN [facility] Endocrinology Diabetes Management Pager [phone] minutes of this 35 minute visit was spent with the patient in counseling on diabetes and treatment plan, reviewing all glucose and insulin data as well as relevant laboratory results with the patient, and coordination of care on the inpatient unit including nursing and primary team. Zulma Power RN - 07/14/2017 10:30 AM EST The patient/resources representative has been provided a list of Home Health Agencies/DME vendors which serve their preferred geographic area. A letter describing our affiliations was reviewed with them and theywere educated about their right to choose where referrals are placed. Patient requests referral to : Yasmani Munguia ([facility] [place] [facility]-is in [place]) PHONE: [phone] FAX: [phone]. Expected date of discharge: 07/14/17 Referral routed to the Manager [employer] for matching with agency/vendor and to provide [...] hours. If BG remains greater than 240, rhneim60 units (no more than three times) &??call [...] #6 s/p CABG X3. FSBG 80 at [place], reports no symptoms but did drink some [...] Will continue to follow Katerin Azul APRN [facility] [facility] Endocrinology Diabetes Management Pager [phone] minutes of this 25 minute visit [...] of infiltration/extravasation Discussed plan of care with FLARING MACHINE OPERATOR and RN. Elevate exrtemity and apply intermittent Warm compresses. Name of MD contacted Dr. Shaw Brown 07/13/2017 @ 0620 Name of RN contacted Ale Rangel RN Name of Pharmacist if consulted NA Name of Plastics MD ( if consulted) NA (Mandatory photo for infiltrations/ extravasations scoring a stage 2 or greater, but recommended forstage 1)( include measuring tape and identifier in the photo) ORTHOTIC FITTER CARING FOR THIS PATIENT WILL CONTINUE TO [...] measuring tape and identifier in the photo) ORTHOTIC FITTER CARING FOR THIS PATIENT WILL CONTINUE TO [...] regard to both infiltrates addressed by this remote mortgage underwriter.All of MrMadiha Hoang's responses were entirely appropriate. Images of infiltrates attached here. L Martha Teague, STOCK CHECKER - 07/13/2017 8:01 AM EST Cardiac Surgery Progress Note: ID: [id number] 72 year old male POD#6 s/p CABGx3 [...] discharge. ?? I have met with the patient/resources representative to discuss discharge planning needs. I have provided the [facility] [facility], Office of Care Management letter from the Wire Frame Lampshade Maker pertaining to rehab referrals. I have also provided a letter describing our affiliations within the [facility] and educated them about their right to choose where referrals are placed. ?? I reviewed the different levels of rehab including SNF, swing, acute and LTAC with the patient/resources representative. ?? The patient/resources representative has been provided a list of facilities within their preferred geographic area. ?? I have requested that the patient/resources representative provide at least three choices for referral. ?? The patient/resources representative have requested referrals to: ?? [facility]. [facility] ?? 2. [facility] ?? 3. More to be entered ?? Expected date of discharge: 07/14 Note routed to Manager [employer] who will communicate referrals to facilities and [...] hours. If BG remains greater than 240, baelut40 units (no more than three times) & [...] hours. If BG remains greater than 240, beerrk52 units (no more than three times) & call for new basal insulin orders. ??If less than 240 after two hours, give no insulin and resume prior schedule. Will continue to follow Katerin Azul APRN [facility] Endocrinology Diabetes Management Pager [phone] minutes of this 35 minute visit was spent with the patient in counseling on diabetes and treatment plan, reviewing all glucose and insulin data as well as relevant laboratory results with the patient, and coordination of care on the inpatient unit including nursing and primary team. Makayla Stevenson APRN - 07/12/2017 9:52 AM EST Cardiac Surgery Progress Note: ID: [id number] 72 year old male POD#5 s/p CABGx3 [...] PM EST Patient arrived from [facility]. VSS. MSI dressing pulled off [...] up in chair. O2 via NC Assessment: Gregoyr Hoang is a 72 y.o. male with [...] hours. If BG remains greater than 240, kkbapr54 units (no more than three times) & [...] AM EST Cardiac Surgery Progress Note: ID: [id number] 72 year old male POD#4 s/p CABGx3 [...] hours. If BG remains greater than 240, xxqede27 units (no more than three times) & [...] AM EST Cardiac Surgery Progress Note: ID: [id number] 72 year old male POD#3 s/p CABGx3 [...] Gas) No results found for: PHART, PO2ART, YUB6ZUN Assessment/Plan: 72 year old male POD#3 s/p [...] Mami Thao - 07/09/2017 6:29 PM EST Personal Protection Specialist Encounter Note Patient Name: Gregory Hoang : [id number] MR#: [id number] Admit Date: 07/05/2017 4:20 PM Hospital Day 4 days Narrative: Patient was sitting in chair, hugging heart pillow, opened his eyes, nodding to come into room Assessment: Patient was sleepy. Intervention and Outcome: Introduced electronic service technician services and patient reached his hand out in appreciation. Follow-up: Personal Protection Specialist remains available for support. Time in Direct [...] 07/09/2017 10:45 AM EST Report given to tax staff accountant to cover care Maddison Cee PA - 07/09/2017 9:00 AM EST Cardiac Surgery Progress Note: ID: [id number] 72 year old male POD#2 s/p CABGx3 [...] completed shifts: In: 7977.4 [I.V.:7477.4; Other:500] Out: 0475 [Urine:3000; Other:615] I- 4 L O- 2.7 [...] on rounds. Signed: STEPHANIE Iqbal [facility] Section of Cardiac Surgery Date: 07/09/2017 [...] when IABP d/c'ed. Gretchen Carolina, PT Pager [phone] Maddison Cee PA - 07/08/2017 11:27 AM EST Cardiac Surgery Progress Note: ID: [id number] 72 year old male POD#1 s/p CABGx3 [...] on rounds. Signed: STEPHANIE Iqbal [facility] Section of Cardiac Surgery Date: 07/08/2017 [...] in place in R femoral. No hematoma. MATERIAL HAULER- Intact Psych- Anxious Skin- Dry, no peripheral [...] intact. IABP in place in R femoral. MATERIAL HAULER- Intact Psych- Anxious Skin- Dry, no peripheral [...] pending CABG - hold metformin - f/u [facility] ?? #Home Meds - continue levothyroxine 175mcg [...] note for details. DAPHNE SHAHID MD Pager [phone] Jet Mckenna MD - 07/05/2017 6:48 PM EST Preliminary Cardiac Catheterization Procedure Note: Procedure(s) performed: Left heart cath, IABP insertion Access: Right LAWN AND GARDEN TECHNICIAN-->8fr IABP A time-out was conducted prior [...] effect. Heparin gtt maintained. Pt transferred to open hearth laborer. documented in this encounter H&P Notes Dpahne Shahid MD - 07/05/2017 6:08 PM EST CARDIOLOGY HISTORY & PHYSICAL EXAM Date of Admission: 07/05/2017 ( Hospital Day 0 days ) Responsible Attending: Daphne Shahid MD PCP: Lovely Vicente MD PCP#: [phone] Patient Active Problem List Diagnosis Code ??? [...] load with heparin drip and transferred to [facility]. While there, continued sob, question of chest pain. Stat TTE showing WMA diffusely and EF around 20%. No significant valvular disease. Taken to the open hearth laborer urgently for ongoing STEMI. [facility] Labs: INR 1.0 WBC 5.88 Hgb 12.9 [...] 72 y.o. male w/ a h/o MARIA VICTORAI (on CPAP), DM2, COPD, HTN, HLD, GERD, [...] monitor I/O - s/p lasix in the open hearth laborer, redose to aim net neg 1L by [...] Medicine, PGY-2 Cardiology S1, Team Pager # [phone] CARDIOLOGY ATTENDING NOTE Patient: Gregory Hoang Date [...] amenable for PCI. DAPHNE SHAHID MD Pager [phone] documented in this encounter Miscellaneous Notes Consult Note - Daphne Shahid MD - 07/14/2017 11:46 AM EST Heart Failure Service Inpatient Consult Note Gregory Hoang Date of : 1945 Age: 72 y.o. Today's date: 07/14/17 PCP: Lovely Vicente MD CIGAR MAKER: None Place of Service: C451-A Reason for [...] SETUP performed by Manny Mcknight MD at [facility] OR ??? PRO CABG, ARTERIAL, SINGLE N/A 07/07/2017 @CABG, USING ARTERIAL GRAFT;SINGLE ARTERIAL GRAFT (WRVU 33.75) performed by Yuan Webber MD at [facility] OR ??? PRO CABG, ARTERY-VEIN, TWO N/A 07/07/2017 @CABG, TWO VENOUS GRAFTS & ARTERIAL GRAFT (WRVU 7.93) performed by Yuan Webber MD at [facility] OR ??? PRO COLONOSCOPY, REMV LESN, SNARE 01/16/2014 COLONOSCOPY, POLYPECTOMY, REMOVAL LESION BY SNARE performed by Nohemi Jaimes MD at [facility] ENDOSCOPY ??? PRO ENDOSCOPY W/VIDEO-ASST VEIN HARVEST, CABG Right 07/07/2017 ENDOSCOPIC HARVEST VEIN(S) FOR CABG (WRVU 0.31) performed by Yuan Webber MD at [facility] OR ??? PRO THYROIDECTOMY 03/28/2013 THYROIDECTOMY, TOTAL OR COMPLETE performed by Manny Mcknight MD at [facility] MAIN OR Outpt Meds: Current Outpatient [...] following studies: EKG 07/14/17: NSR 75 bpm, SUPERVISOR PAINT anterior infarct, LAD CXR 07/11/17: FINDINGS: Sternotomy wires. The patient has been extubated, left chest tube removed, and Morrison-Suzi catheter removed since the 07/07/2017 study. Atelectasis [...] was discussed with Zehra. Jaden Kelley MD Region Manager Pager [phone] CARDIOLOGY ATTENDING NOTE Patient: Gregory Hoang Date [...] heart failure clinic. DAPHNE SHAHID MD Pager [phone] Plan of Care - Alden Chavarria, CORRECTIONAL OFFICER - 07/14/2017 11:35 AM EST Problem: Patient [...] Disposition: home with assist Alden Jorge Genikevin, CORRECTIONAL OFFICER Pager: [phone] Inpatient Physical Therapy Problem: Acute Rehab Services [...] sit/sit to supine -- Bed Mobility Goal, [place] Level supervision required -- Bed Mobility Goal, [...] - 3 days -- Gait Training Goal, [place] Level supervision required -- Gait Training Goal, [...] days -- Transfer Training Goal, Activity Type ear-qv-zoxjr/hrhoq-zk-yoi;kwz-ix-omphu/qneat-lw-boc;toilet -- Transfer Train Goal, [place] Level supervision required -- Transfer Training Goal, [...] keeping present for 2 days per family. Policy And Planning Manager noted of frustrations, house keeping sent to room. Patient offered showered twice, refused. at bedside, frustrated that shower not complete, informed that patient had refused several times. requesting to see UPLANDS DIVISION DIRECTOR, paged sent to Martha, will come to bedside (middle of consult). not willing to wait, Martha notified that family had gone home. Encouraged to come for morning rounds a t 8am. Diabetes team at bedside - insulin adjustments made. Call cabello in reach. Continue to monitor. PLAN MOVING FORWARD: Ambulate, dressing changes BID, Please change drsg at 4am per Martha UPLANDS DIVISION DIRECTOR request. INDIVIDUALIZED FALL PREVENTION INTERVENTIONS: Patient-specific fall [...] levels on the lower side, 60ml of Warren juice given after a FS of 80. [...] Anticipated Discharge Disposition: home with assist Pager: [phone] CLARISSA SEGAL, PT 07/12/2017 Physical Therapy Rehabilitation [...] to sit/sit to supine Bed Mobility Goal, [place] Level supervision required Bed Mobility Goal, Additional Goal adheres to psternal precautions for transfer Goal: Gait Training Goal Stand Alone Therapy Goal Outcome: Ongoing (Interventions Implemented as Appropriate) 07/12/17 1225 Gait Training Goal Gait Training Goal, Date Established 07/12/17 Gait Training Goal, Time to Achieve 2 - 3 days Gait Training Goal, [place] Level supervision required Gait Training Goal, Assist [...] 3 days Transfer Training Goal, Activity Type ivr-vr-wjagb/xdceh-eg-txy;hvp-vt-epbyr/dehvm-mb-hvf;toilet Transfer Train Goal, [place] Level supervision required Transfer Training Goal, Additional Goal adheres to sternal precautions during transfer Consult Note - Octavia Vaughn RN - 07/12/2017 10:50 AM EST [facility] [facility] CARDIAC REHABILITATION Gregory Hoang was seen today regarding participation in the outpatient Phase 2 Cardiac Rehabilitation at [facility]. The patient agrees to a referral to [...] IV site, amio to other piv and SECURITY VEHICLE PATROL OFFICER at bedside to help assess, IV removed. [...] staff, he stood and marched in place. [place] weak, wanting to sit back down. Remained [...] Health/Prescription Coverage: Primary Insurance: MEDICARE Secondary Insurance: [employer] [place] Prescription Coverage: yes Preferred Pharmacy: [facility] [place] Other: none Primary Care Provider: Lovely Vicente MD [phone] Patient/Caregiver Goals of Treatment:live and get my breath back Potential Needs for Transition of Care: Rehab/SNF: [facility] Home Health: NA DME: TBD Dialysis: na Community Resources: available Transportation: yes Other: none Anticipated Barriers to Discharge/Special Considerations: none Plan: Likely SNF Rehab before home A member of the Care Management team will continue to monitor progress, follow for continuity of care and assist with transition of care planning. ERLIN Weiss Pager: [phone] Consult Note - Katerin Azul RN - [...] and to provide a review of terminal operations supervisor diabetes care. Diabetes History: Gregory Hoang has [...] potential to d/c gtt and start CF. senior care diabetes care: Medications - Outpatient treatment regimen recommendations pending based on the hospital course. Monitoring - continue BG tid ac & hs Diet - low fat/low carb diet Exercise - weight-bearing exercise 30 min/day, as tolerated Thank you for allowing us to provide care for your patient W/E coverage, Dr. Jeane Tatum, pager [phone] Katerin Azul APRN Endocrinology Diabetes Management Pager [phone] Plan of Care - Walt Stephanie Wyatt [...] Webber MD - 07/07/2017 6:27 PM EST [place] [facility] Operative Note Patient Name: Gregory Hoang : [id number] MR#: [id number] Case Date: 07/07/2017 Surgeon: Surgeon(s) and Role: * Yuan Webber MD - Primary * Michael Drake PA - Physician Hardwood Sawyer * Linda Flores PA - Physician Hardwood Sawyer Preoperative diagnosis: 3VD Postoperative diagnosis: CAD, severe [...] Operative Note Patient Name: Gregory Hoang : [id number] MR#: [id number] Case Date: 07/07/2017 Surgeon: Surgeon(s) and Role: * Yuan Webber MD - Primary * Michael Drake PA - Physician Hardwood Sawyer * Linda Flores PA - Physician Hardwood Sawyer Preoperative diagnosis: 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 In this [...] code status: Full Code Katty Hahn, MS3 [facility] Cardiology S1 (Pager [phone]) Plan of Care - Emelia Ibarra RN [...] hospital and ruled infor non-ST segment elevation MA. This almost certainly represents the residual of [...] performed by Manny Mcknight MD at [facility] MAIN OR ??? PRO COLONOSCOPY, REMV LESN, SNARE 01/16/2014 COLONOSCOPY, POLYPECTOMY, REMOVAL LESION BY SNARE performed by Nohemi Jaimes MD at [facility] ENDOSCOPY ??? PRO THYROIDECTOMY 03/28/2013 THYROIDECTOMY, TOTAL OR COMPLETE performed by Manny Mcknight MD at [facility] MAIN OR Social History: Social History [...] with other involved physicians Yuan Webber MD [phone] Med Student Progress Note - Katty Hahn [...] major CV events such as , stroke, MA, repeat revascularization compared to PCI). 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 Pt requested that Ocsaio be deferred for hx of CAUTI, voiding in urinal without difficulty. 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 Pt [...] Office Visit Cardiology Liz Poole PA [facility] Medical [facility] er Cardiology Dept [place], [place] [address] (Wo rk) 03/26/2022 Office Visit Cardiology Vitaliy Nobles MD [facility] ER CARDIOLOGY [place], [place] [address] (Wo rk) Scheduled Orders Name [...] procedure are i n the results section. INSIGHT DIRECTOR SCAN 07/15/2017 12:00 Res ults for this [...] Routine 07/07/2017 5:15 Results f or this ([place] [facility]) AM EST procedure are [...] Routine 07/06/2017 7:40 Results f or this ([place] [facility]) PM EST procedure are [...] Timed 07/06/2017 2:10 Results f or this ([place] [facility]/CG) PM EST procedure are [...] section. TYPE AND SCREEN Routine 07/06/2017 12:00 ([place] [facility] [place] [facility]/SHANDA) PM EST APTT STAT [...] Routine 07/06/2017 8:10 Results f or this ([place] [facility]) AM EST procedure are [...] Routine 07/06/2017 2:20 Results f or this ([place] [facility] [facility]) AM EST procedure are [...] Timed 07/05/2017 4:55 Results f or this ([place] [facility] [facility]) PM EST procedure are i n the [...] Teague APRN IMG DX ORDERABLES SCAN DOC: INSIGHT DIRECTOR (07/15/2017 12:00 AM EST) Narrative 07/15/2017 12:00 [...] Signature POC Glucose 186 65 - 199 [facility] mg/dL [facility] Comment: Supplemental ranges: <140 mg/dL before meals <180 mg/dL all other times of the day Specimen Anatomical Collection Method Collection Time Receive d Time (Source) Location / / Volume Laterality Blood specimen 07/14/2017 11:56 7 (specimen) AM EST 11:56 AM EST Yuan Webber MD POINT OF CARE TEST ORDERABLE S Performing Organization Address City/State/[place] [address] POCT Glucose (07/14/2017 7:52 AM EST) athologist Signature POC Glucose 126 65 - 199 [facility] mg[facility]dL [facility] Comment: Supplemental ranges: <140 mg/dL before meals <180 mg/dL all other times of the day Specimen Anatomical Collection Method Collection Time Receive d Time (Source) Location / / Volume Laterality Blood specimen 07/14/2017 7:52 AM 017 7:52 (specimen) EST AM EST Yuan Webber MD POINT OF CARE TEST ORDERABLE S Performing Organization Address [facility]/ZIP [place] [address] (ABNORMAL) Prothrombin Time (07/14/2017 4:46 AM EST) athologist Signature PT 26.4 (H) 11.8 - 14.0 [facility] LABORATORY INR 2.4 (H) 0.9 - 1.1 [facility] Comment: An INR [...] Wilson APRN HEMATOLOGY ORDERABLES Performing Organization Address City/[facility] [place] [address] Potassium (07/14/2017 4:46 AM EST) athologist Signature Potassium 4.3 3.5 - 5.0 [facility] mmol/L [facility] Comment: Please note: ??Patients [...] Address City/State/ZIP Code Phon e Number [address] POCT Glucose (07/14/2017 4:34 AM EST) athologist Signature POC Glucose 115 65 - 199 [place] mg/dL [facility] Comment: Supplemental ranges: <140 [...] [facility]/ZIP Code Phon e Number [address] POCT Glucose (07/13/2017 11:33 PM EST) athologist Signature POC Glucose 132 65 - 199 [place] mg/dL [facility] Comment: Supplemental ranges: <140 [...] [facility]/ZIP [place] [address] POCT Glucose (07/13/2017 9:25 PM EST) athologist Signature POC Glucose 121 65 - 199 [place] mg/dL [facility] Comment: Supplemental ranges: <140 mg/dL before meals <180 mg/dL all other times of the day Specimen Anatomical Collection Method Collection Time Receive d Time (Source) Location / / Volume Laterality Blood specimen 07/13/2017 9:25 PM 017 9:25 (specimen) EST PM EST Yuan Webber MD POINT OF CARE TEST ORDERABLE S Performing Organization Address City/State/[place] [address] POCT Glucose (07/13/2017 4:55 PM EST) athologist Signature POC Glucose 79 65 - 199 [place] mg/dL [facility] Comment: Supplemental ranges: <140 mg/dL before meals <180 mg/dL all other times of the day Specimen Anatomical Collection Method Collection Time Receive d Time (Source) Location / / Volume Laterality Blood specimen 07/13/2017 4:55 PM 017 4:55 (specimen) EST PM EST Yuan Webber MD POINT OF CARE TEST ORDERABLE S Performing Organization Address City/State/[place] [address] [facility] [address] POCT Glucose (07/13/2017 11:16 AM EST) athologist Signature POC Glucose 163 65 - 199 [place] mg/dL [facility] Comment: Supplemental ranges: <140 mg/dL before meals <180 mg/dL all other times of the day Specimen Anatomical Collection Method Collection Time Receive d Time (Source) Location / / Volume Laterality Blood specimen 07/13/2017 11:16 7 (specimen) AM EST 11:16 AM EST Yuan Webber MD POINT OF CARE TEST ORDERABLE S Performing Organization Address City/State/[place] [address] POCT Glucose (07/13/2017 8:07 AM EST) athologist Signature POC Glucose 96 65 - 199 [place] mg/dL [facility] Comment: Supplemental ranges: <140 mg/dL before meals <180 mg/dL all other times of the day Specimen Anatomical Collection Method Collection Time Receive d Time (Source) Location / / Volume Laterality Blood specimen 07/13/2017 8:07 AM 017 8:07 (specimen) EST AM EST Yuan Webber MD POINT OF CARE TEST ORDERABLE S Performing Organization Address City/State/[place] [address] (ABNORMAL) Prothrombin Time (07/13/2017 4:26 AM EST) P athologist Signature PT 20.8 (H) 11.8 - 14.0 [facility] LABORATORY INR 1.8 (H) 0.9 - 1.1 [facility] Comment: An INR [...] Address City/State/ZIP [place] [address] (ABNORMAL) Basic Metabolic Panel (non-fasting) (07/13/2017 4:26 AM EST) athologist Signature Glucose Lvl 95 65 - 199 [facility] mg/dL [facility] Comment: Diabetes: >=200 mg/dL plus symp toms BUN 25 (H) 10 - 20 mg/dL [facility] Creatinine 1.19 0.80 - 1.50 mg/dL [facility] Sodium 143 135 - 145 mmol/L [facility] Potassium 3.7 3.5 - 5.0 mmol/L [facility] Comment: Please note: ??Patients with WBC >100,00 0 may have falsely elevated Potassium levels. ??For accurate Potassium quantif ication in these patients send serum separator tube (gold top) for subsequent determinations. ??Contact the Clinical Chemistry Laboratory if there are any qu estions. Chloride 104 98 - 107 mmol/L [facility] CO2 26 22 - 31 mmol/L [facility] Anion Gap 13 5 - 15 mmol/L [facility] Calcium 7.7 (L) 8.5 - 10.5 mg/dL [facility] Estimated GFR 60 >=60 [facility] Comment: The reported eGFR should be multiplied b y 1.2 for patients. The MDRD is not an appropriate measure o f renal function for patients with body mass extremes or in patients with acute kidney failure. http://[employer]/DHnkdep http://[employer]/DHMCnkf Specimen Anatomical Collection Method Collection Time Receive d Time (Source) Location / / Volume Laterality Blood specimen 07/13/2017 4:26 AM 017 4:46 (specimen) EST AM EST Resulting Agency Comment Spec In Lab Makayla Wilson APRN CHEMISTRY ORDERABLES Performing Organization Address City/State/ZIP Code Phon e Number [address] POCT Glucose (07/13/2017 3:52 AM EST) athologist Signature POC Glucose 93 65 - 199 [facility] mg/dL [facility] Comment: Supplemental ranges: <140 mg/dL before meals <180 mg/dL all other times of the day Specimen Anatomical Collection Method Collection Time Receive d Time (Source) Location / / Volume Laterality Blood specimen 07/13/2017 3:52 AM 017 3:52 (specimen) EST AM EST Yuan Webber MD POINT OF CARE TEST ORDERABLE S Performing Organization Address City/State/ZIP Code Phon e Number [address] POCT Glucose (07/13/2017 12:21 AM EST) athologist Signature POC Glucose 80 65 - 199 [facility] Comment: Supplemental ranges: <140 [...] [facility]/ZIP Code Phon e Number [address] POCT Glucose (07/12/2017 8:22 PM EST) P athologist Signature POC Glucose 119 65 - 199 [place] mg/dL [facility] Comment: Supplemental ranges: <140 [...] [facility]/ZIP Code Phon e Number [address] POCT Glucose (07/12/2017 4:02 PM EST) P athologist Signature POC Glucose 114 65 - 199 [facility] SU mg/dL [facility] Comment: Supplemental ranges: <140 mg/dL before meals <180 mg/dL all other times of the day Specimen Anatomical Collection Method Collection Time Receive d Time (Source) Location / / Volume Laterality Blood specimen 07/12/2017 4:02 PM 017 4:02 (specimen) EST PM EST Yuan Webber MD POINT OF CARE TEST ORDERABLE S Performing Organization Address City/State/ZIP Code Phon e Number [address] POCT Glucose (07/12/2017 11:28 AM EST) P athologist Signature POC Glucose 164 65 - 199 [facility] SU mg/dL [facility] Comment: Supplemental ranges: <140 mg/dL before meals <180 mg/dL all other times of the day Specimen Anatomical Collection Method Collection Time Receive d Time (Source) Location / / Volume Laterality Blood specimen 07/12/2017 11:28 7 (specimen) AM EST 11:28 AM EST Yuan Webber MD POINT OF CARE TEST ORDERABLE S Performing Organization Address City/State/ZIP Code Phon e Number [address] POCT Glucose (07/12/2017 7:34 AM EST) athologist Signature POC Glucose 109 65 - 199 [facility] mg/dL [facility] Comment: Supplemental ranges: <140 mg/dL before meals <180 mg/dL all other times of the day Specimen Anatomical Collection Method Collection Time Receive d Time (Source) Location / / Volume Laterality Blood specimen 07/12/2017 7:34 AM 017 7:34 (specimen) EST AM EST Yuan Webber MD POINT OF CARE TEST ORDERABLE S Performing Organization Address City/State/ZIP [place] [address] (ABNORMAL) Basic Metabolic Panel (non-fasting) (07/12/2017 4:11 AM EST) athologist Signature Glucose Lvl 92 65 - 199 [facility] mg/dL [facility] Comment: Diabetes: >=200 mg/dL plus symp toms BUN 31 (H) 10 - 20 mg/dL [facility] Creatinine 1.23 0.80 - 1.50 mg/dL [facility] Sodium 145 135 - 145 mmol/L [facility] Potassium Not Perf 3.5 - 5.0 mmol/L [facility] Comment: Duplicate order Please note: ??Patients with WBC >100,00 0 may have falsely elevated Potassium levels. ??For accurate Potassium quantif ication in these patients send serum separator tube (gold top) for subsequent determinations. ??Contact the Clinical Chemistry Laboratory if there are any qu estions. Chloride 106 98 - 107 mmol/L [facility] CO2 Not Perf 22 - 31 mmol/L [facility] Comment: Add-on request. Sample too old to perform test. Anion Gap Not Calculated 5 - 15 mmol/L [facility] Calcium 8.1 (L) 8.5 - 10.5 mg/dL [facility] Estimated GFR 58 (L) >=60 [facility] Comment: The reported eGFR should be multiplied b y 1.2 for patients. The MDRD is not an appropriate measure o f renal function for patients with body mass extremes or in patients with acute kidney failure. http://[employer]/DHnkdep http://[employer]/DHMCnkf Specimen Anatomical Collection Method Collection Time Receive d Time (Source) Location / / Volume Laterality Blood specimen 07/12/2017 4:11 AM 017 8:57 (specimen) EST AM EST Resulting Agency Comment Spec [facility]IE CHEMISTRY ORDERABLES Performing Organization Address [facility] Phon e Number [address] (ABNORMAL) Prothrombin Time (07/12/2017 4:11 AM EST) P athologist Signature PT 15.4 (H) 11.8 - 14.0 [facility] LABORATORY INR 1.2 (H) 0.9 - 1.1 [facility] Comment: An INR [...] [place] STACIE HEMATOLOGY ORDERABLES Performing Organization Address [facility] Phon e Number [address] Potassium (07/12/2017 4:11 AM EST) P athologist Signature Potassium 3.8 3.5 - 5.0 [facility] mmol/L [facility] Comment: Please note: ??Patients [...] Wilson APRN CHEMISTRY ORDERABLES Performing Organization Address City/[facility]/ZIP Code Phon e Number [address] POCT Glucose (07/12/2017 4:10 AM EST) athologist Signature POC Glucose 90 65 - 199 [facility] mg/dL [facility] Comment: Supplemental ranges: <140 [...] [facility]/ZIP Code Phon e Number [address] POCT Glucose (07/11/2017 11:57 PM EST) P athologist Signature POC Glucose 98 65 - 199 [facility] mg/dL [facility] Comment: Supplemental ranges: <140 [...] [facility]/ZIP [place] [address] POCT Glucose (07/11/2017 8:32 PM EST) P athologist Signature POC Glucose 146 65 - 199 [place] mg/dL [facility] Comment: Supplemental ranges: <140 mg/dL before meals <180 mg/dL all other times of the day Specimen Anatomical Collection Method Collection Time Receive d Time (Source) Location / / Volume Laterality Blood specimen 07/11/2017 8:32 PM 017 8:32 (specimen) EST PM EST Yuan Webber MD POINT OF CARE TEST ORDERABLE S Performing Organization Address City/State/ZIP Code Phon e Number [facility] [place] [address] XR Chest PA & [...] e xtubated, left chest tube removed, and Morrison-Suzi catheter removed since the study. Atelectasis at [...] e xtubated, left chest tube removed, and Morrison-Suzi catheter removed since the study. Atelectasis at [...] (H) 65 - 199 [place] mg/dL [facility] Comment: Supplemental ranges: <140 [...] [facility]/ZIP Code Phon e Number [address] POCT Glucose (07/11/2017 11:55 AM EST) athologist Signature POC Glucose 176 65 - 199 [place] mg/dL [facility] Comment: Supplemental ranges: <140 mg/dL before meals <180 mg/dL all other times of the day Specimen Anatomical Collection Method Collection Time Receive d Time (Source) Location / / Volume Laterality Blood specimen 07/11/2017 11:55 7 (specimen) AM EST 11:55 AM EST Yuan Webber MD POINT OF CARE TEST ORDERABLE S Performing Organization Address City/State/ZIP [place] [address] POCT Glucose (07/11/2017 7:53 AM EST) athologist Signature POC Glucose 189 65 - 199 [place] mg/dL [facility] Comment: Supplemental ranges: <140 [...] [facility]/ZIP [place] [address] POCT Glucose (07/11/2017 4:22 AM EST) athologist Signature POC Glucose 151 65 - 199 [place] mg/dL [facility] Comment: Supplemental ranges: <140 [...] [facility] [place] [address] Potassium (07/11/2017 2:20 AM EST) athologist Signature Potassium 4.5 3.5 - 5.0 [facility] mmol/L [facility] Comment: Please note: ??Patients [...] Webber MD CHEMISTRY ORDERABLES Performing Organization Address City/[facility]/ZIP [facility] Phon e Number [address] POCT Glucose (07/11/2017 12:17 AM EST) athologist Signature POC Glucose 162 65 - 199 [facility] mg/dL [facility] Comment: Supplemental ranges: <140 mg/dL before meals <180 mg/dL all other times of the day Specimen Anatomical Collection Method Collection Time Receive d Time (Source) Location / / Volume Laterality Blood specimen 07/11/2017 12:17 7 (specimen) AM EST 12:17 AM EST Yuan Webber MD POINT OF CARE TEST ORDERABLE S Performing Organization Address City/State/ZIP [place] [address] POCT Glucose (07/10/2017 8:47 PM EST) athologist Signature POC Glucose 191 65 - 199 [place] mg/dL [facility] Comment: Supplemental ranges: <140 mg/dL before meals <180 mg/dL all other times of the day Specimen Anatomical Collection Method Collection Time Receive d Time (Source) Location / / Volume Laterality Blood specimen 07/10/2017 8:47 PM 017 8:47 (specimen) EST PM EST Yuan Webber MD POINT OF CARE TEST ORDERABLE S Performing Organization Address City/State/ZIP [place] [address] POCT Glucose (07/10/2017 4:06 PM EST) athologist Signature POC Glucose 131 65 - 199 [place] mg/dL [facility] Comment: Supplemental ranges: <140 mg/dL before meals <180 mg/dL all other times of the day Specimen Anatomical Collection Method Collection Time Receive d Time (Source) Location / / Volume Laterality Blood specimen 07/10/2017 4:06 PM 017 4:06 (specimen) EST PM EST Yuan Webber MD POINT OF CARE TEST ORDERABLE S Performing Organization Address City/State/ZIP [place] [address] POCT Glucose (07/10/2017 3:08 PM EST) athologist Signature POC Glucose 151 65 - 199 [place] mg/dL [facility] Comment: Supplemental ranges: <140 mg/dL before meals <180 mg/dL all other times of the day Specimen Anatomical Collection Method Collection Time Receive d Time (Source) Location / / Volume Laterality Blood specimen 07/10/2017 3:08 PM 017 3:08 (specimen) EST PM EST Yuan Webber MD POINT OF CARE TEST ORDERABLE S Performing Organization Address City/State/ZIP Code Phon e Number [address] POCT Glucose (07/10/2017 2:25 PM EST) athologist Signature POC Glucose 146 65 - 199 [place] mg/dL [facility] Comment: Supplemental ranges: <140 [...] [facility]/ZIP [place] [address] POCT Glucose (07/10/2017 1:23 PM EST) athologist Signature POC Glucose 166 65 - 199 [place] mg/dL [facility] Comment: Supplemental ranges: <140 mg/dL before meals <180 mg/dL all other times of the day Specimen Anatomical Collection Method Collection Time Receive d Time (Source) Location / / Volume Laterality Blood specimen 07/10/2017 1:23 PM 017 1:23 (specimen) EST PM EST Yuan Webber MD POINT OF CARE TEST ORDERABLE S Performing Organization Address City/State/ZIP [place] [address] POCT Glucose (07/10/2017 11:52 AM EST) athologist Signature POC Glucose 157 65 - 199 [facility] SU mg/dL [facility] Comment: Supplemental ranges: <140 mg/dL before meals <180 mg/dL all other times of the day Specimen Anatomical Collection Method Collection Time Receive d Time (Source) Location / / Volume Laterality Blood specimen 07/10/2017 11:52 7 (specimen) AM EST 11:52 AM EST Yuan Webber MD POINT OF CARE TEST ORDERABLE S Performing Organization Address City/State/ZIP Code Phon e Number [address] POCT Glucose (07/10/2017 11:01 AM EST) P athologist Signature POC Glucose 158 65 - 199 [place] mg/dL [facility] Comment: Supplemental ranges: <140 [facility]/ZIP Code Phon e Number [address] POCT Glucose (07/10/2017 9:54 AM EST) P athologist Signature POC Glucose 160 65 - 199 [place] mg/dL [facility] Comment: Supplemental ranges: <140 mg/dL before meals <180 mg/dL all other times of the day Specimen Anatomical Collection Method Collection Time Receive d Time (Source) Location / / Volume Laterality Blood specimen 07/10/2017 9:54 AM 017 9:54 (specimen) EST AM EST Yuan Webber MD POINT OF CARE TEST ORDERABLE S Performing Organization Address City/State/ZIP Code Phon e Number [address] POCT Glucose (07/10/2017 8:58 AM EST) P athologist Signature POC Glucose 183 65 - 199 [facility] SU mg/dL [facility] Comment: Supplemental ranges: <140 mg/dL before meals <180 mg/dL all other times of the day Specimen Anatomical Collection Method Collection Time Receive d Time (Source) Location / / Volume Laterality Blood specimen 07/10/2017 8:58 AM 017 8:58 (specimen) EST AM EST Yuan Webber MD POINT OF CARE TEST ORDERABLE S Performing Organization Address City/State/ZIP [place] [address] POCT Glucose (07/10/2017 8:01 AM EST) athologist Signature POC Glucose 173 65 - 199 [place] mg/dL [facility] Comment: Supplemental ranges: <140 mg/dL before meals <180 mg/dL all other times of the day Specimen Anatomical Collection Method Collection Time Receive d Time (Source) Location / / Volume Laterality Blood specimen 07/10/2017 8:01 AM 017 8:01 (specimen) EST AM EST Yuan Webber MD POINT OF CARE TEST ORDERABLE S Performing Organization Address City/State/ZIP [place] [address] POCT Glucose (07/10/2017 7:05 AM EST) athologist Signature POC Glucose 166 65 - 199 [place] mg/dL [facility] Comment: Supplemental ranges: <140 mg/dL before meals <180 mg/dL all other times of the day Specimen Anatomical Collection Method Collection Time Receive d Time (Source) Location / / Volume Laterality Blood specimen 07/10/2017 7:05 AM 017 7:05 (specimen) EST AM EST Yuan Webber MD POINT OF CARE TEST ORDERABLE S Performing Organization Address City/State/ZIP [place] [address] POCT Glucose (07/10/2017 6:00 AM EST) athologist Signature POC Glucose 162 65 - 199 [place] mg/dL [facility] Comment: Supplemental ranges: <140 mg/dL before meals <180 mg/dL all other times of the day Specimen Anatomical Collection Method Collection Time Receive d Time (Source) Location / / Volume Laterality Blood specimen 07/10/2017 6:00 AM 017 6:00 (specimen) EST AM EST Yuan Webber MD POINT OF CARE TEST ORDERABLE S Performing Organization Address City/State/ZIP Code Phon e Number [address] (ABNORMAL) Differential, Automated (07/10/2017 4:28 AM EST) [facility] Method Time Signature Neutrophils % 87.9 % [facility] LABORATORY Neutr Abs (ANC) 10.70 (H) 1.70 - [facility] 6.10 [facility] x10(3)/[facility] L LABORATORY Lymphocytes % 3.9 % [facility] LABORATORY Lymphocytes Abs 0.5 (L) 0.9 - 3.2 [facility] x10(3)/[facility] LABORATORY Monocytes % 7.0 % [facility] LABORATORY Monocyte Abs 0.8 0.3 - 0.9 [facility] x10(3)/[facility] LABORATORY Eosinophils % 0.3 % [facility] LABORATORY Eosinophils Abs 0.0 0.0 - 0.4 [facility] x10(3)/[facility] LABORATORY Basophils % 0.2 % [facility] LABORATORY Basophils Abs 0.0 0.0 - 0.1 [facility] x10(3)/[facility] LABORATORY Immature Gran % 0.70 % [facility] Comment: Immature granulocytes(IG's)percentage an d absolute count will include metamyelocytes, myelocytes, and promyelo cytes. Blood smears from CBCs yielding IG's will be scanned manually for concor dance. If this scan disagrees with the automated IG or if promyelocytes are not ed, a manual differential will be performed. [place]isa Gran Abs 0.08 (H) 0.00 - 0.04 x10(3)/[facility] LABORATORY Specimen Anatomical Collection Method Collection Time Receive d Time (Source) Location / / Volume Laterality Blood specimen 07/10/2017 4:28 AM 017 4:36 (specimen) EST AM EST Resulting Agency Comment Spec In Lab Yuan Webber MD HEMATOLOGY ORDERABLES Performing Organization Address City/State/ZIP Code Phon e Number [place] [id number] (ABNORMAL) Hemogram (07/10/2017 4:28 AM EST) Analysis Performed At Patho logist Time Signature WBC 12.2 (H) 4.0 - 9.5 [facility] x10(3)/[facility] LABORATORY RBC 3.31 (L) 4.58 - [facility] 5.54 [facility] x10(6)/[facility] LABORATORY Hemoglobin 9.8 (L) 13.7 - [facility] 16.5 gm/dL [facility] Hematocrit 30.0 (L) 40.5 - [facility] 48.5 % [facility] MCV 90.6 82.9 - [facility] 93.1 [facility] LABORATORY MCH 29.6 27.5 - [facility] 32.1 pg [facility] MCHC 32.7 32.0 - [facility] 35.7 gm/dL [facility] Platelets 135 (L) 145 - 357 [facility] x10(3)/[facility] LABORATORY RDWSD 50.8 (H) 36.0 - [facility] 45.0 [facility] LABORATORY RDWCV 15.4 (H) 11.4 - [facility] 13.8 % [facility]ATORY MPV 10.0 7.6 - 12.9 [facility] LABORATORY nRBC % Auto 0.0 % [facility] LABORATORY nRBC Abs Auto 0.000 0.000 - [facility] 0.000 [facility] x10(3)/[facility] LABORATORY Specimen Anatomical Collection Method Collection Time Receive d Time (Source) Location / / Volume Laterality Blood specimen 07/10/2017 4:28 AM 017 4:36 (specimen) EST AM EST Resulting Agency Comment Spec In Lab Yuan Webber MD HEMATOLOGY ORDERABLES Performing Organization Address City/State/ZIP [place] [address] (ABNORMAL) Basic Metabolic Panel (non-fasting) (07/10/2017 4:28 AM EST) P athologist Signature Glucose Lvl 178 65 - 199 [facility] mg/dL [facility] Comment: Diabetes: >=200 mg/dL plus symp toms BUN 20 10 - 20 mg/dL [facility] LABORATORY Creatinine 1.19 0.80 - 1.50 mg/dL [facility] LABORATORY Sodium 143 135 - 145 mmol/L [facility] LABORATORY [...] estions. Chloride 107 98 - 107 mmol/L [facility] LABOR[facility]ORY CO2 21 (L) 22 - 31 mmol/L [facility] LABORATORY Anion Gap 15 5 - 15 mmol/L [facility] LABORATORY Calcium 7.4 (L) 8.5 - 10.5 mg/dL [facility] LABORATORY Estimated GFR 60 >=60 [facility] LABORATORY Comment: The reported eGFR should be multiplied b y 1.2 for patients. The MDRD is not an appropriate measure o f renal function for patients with body mass extremes or in patients with acute kidney failure. http://[employer]/DHnkdep http://[employer]/DHMCnkf Specimen Anatomical Collection Method Collection Time Receive d Time (Source) Location / / Volume Laterality Blood specimen 07/10/2017 4:28 AM 017 4:36 (specimen) EST AM EST Resulting Agency Comment Spec In Lab Yuan Webber MD CHEMISTRY ORDERABLES Performing Organization Address City/State/[place] [address] POCT Glucose (07/10/2017 4:26 AM EST) P athologist Signature POC Glucose 176 65 - 199 [facility] mg/dL [facility] Comment: Supplemental ranges: <140 [...] [facility]/ZIP [place] [address] (ABNORMAL) POCT Glucose (07/10/2017 3:06 AM EST) P athologist Signature POC Glucose 204 (H) 65 - 199 [place] mg/dL [facility] Comment: Supplemental ranges: <140 [...] [facility]/ZIP [place] [address] (ABNORMAL) POCT Glucose (07/10/2017 2:10 AM EST) P athologist Signature POC Glucose 203 (H) 65 - 199 [place] mg/dL [facility] Comment: Supplemental ranges: <140 mg/dL before meals <180 mg/dL all other times of the day Specimen Anatomical Collection Method Collection Time Receive d Time (Source) Location / / Volume Laterality Blood specimen 07/10/2017 2:10 AM 017 2:10 (specimen) EST AM EST Yuan Webber MD POINT OF CARE TEST ORDERABLE S Performing Organization Address City/State/ZIP [place] [address] POCT Glucose (07/10/2017 1:09 AM EST) P athologist Signature POC Glucose 196 65 - 199 [place] mg/dL [facility] Comment: Supplemental ranges: <140 mg/dL before meals <180 mg/dL all other times of the day Specimen Anatomical Collection Method Collection Time Receive d Time (Source) Location / / Volume Laterality Blood specimen 07/10/2017 1:09 AM 017 1:09 (specimen) EST AM EST Yuan Webber MD POINT OF CARE TEST ORDERABLE S Performing Organization Address City/State/ZIP Code Phon e Number [address] POCT Glucose (07/10/2017 12:10 AM EST) P athologist Signature POC Glucose 173 65 - 199 [place] mg/dL [facility] Comment: Supplemental ranges: <140 mg/dL before meals <180 mg/dL all other times of the day Specimen Anatomical Collection Method Collection Time Receive d Time (Source) Location / / Volume Laterality Blood specimen 07/10/2017 12:10 7 (specimen) AM EST 12:10 AM EST Yuan Webber MD POINT OF CARE TEST ORDERABLE S Performing Organization Address City/State/ZIP Code Phon e Number [address] POCT Glucose (07/09/2017 11:01 PM EST) P athologist Signature POC Glucose 140 65 - 199 [place] mg/dL [facility] Comment: Supplemental ranges: <140 mg/dL before meals <180 mg/dL all other times of the day Specimen Anatomical Collection Method Collection Time Receive d Time (Source) Location / / Volume Laterality Blood specimen 07/09/2017 11:01 7 (specimen) PM EST 11:01 PM EST Yuan Webber MD POINT OF CARE TEST ORDERABLE S Performing Organization Address City/State/ZIP [place] [address] POCT Glucose (07/09/2017 10:05 PM EST) P athologist Signature POC Glucose 144 65 - 199 [facility] SU mg/dL [facility] Comment: Supplemental ranges: <140 [...] [facility]/ZIP Code Phon e Number [address] POCT Glucose (07/09/2017 9:31 PM EST) athologist Signature POC Glucose 121 65 - 199 [place] mg/dL [facility] Comment: Supplemental ranges: <140 [...] [facility]/ZIP Code Phon e Number [address] POCT Glucose (07/09/2017 9:03 PM EST) athologist Signature POC Glucose 98 65 - 199 [place] mg/dL [facility] Comment: Supplemental ranges: <140 mg/dL before meals <180 mg/dL all other times of the day Specimen Anatomical Collection Method Collection Time Receive d Time (Source) Location / / Volume Laterality Blood specimen 07/09/2017 9:03 PM 017 9:03 (specimen) EST PM EST Yuan Webber MD POINT OF CARE TEST ORDERABLE S Performing Organization Address City/State/ZIP Code Phon e Number [address] POCT Glucose (07/09/2017 8:09 PM EST) athologist Signature POC Glucose 117 65 - 199 [facility] SU mg/dL [facility] Comment: Supplemental ranges: <140 mg/dL before meals <180 mg/dL all other times of the day Specimen Anatomical Collection Method Collection Time Receive d Time (Source) Location / / Volume Laterality Blood specimen 07/09/2017 8:09 PM 017 8:09 (specimen) EST PM EST Yuan Webber MD POINT OF CARE TEST ORDERABLE S Performing Organization Address City/State/ZIP [place] [address] POCT Glucose (07/09/2017 5:40 PM EST) athologist Signature POC Glucose 155 65 - 199 [place] mg/dL [facility] Comment: Supplemental ranges: <140 mg/dL before meals <180 mg/dL all other times of the day Specimen Anatomical Collection Method Collection Time Receive d Time (Source) Location / / Volume Laterality Blood specimen 07/09/2017 5:40 PM 017 5:40 (specimen) EST PM EST Yuan Webber MD POINT OF CARE TEST ORDERABLE S Performing Organization Address City/State/ZIP [place] [address] POCT Glucose (07/09/2017 4:24 PM EST) athologist Signature POC Glucose 164 65 - 199 [place] mg/dL [facility] Comment: Supplemental ranges: <140 mg/dL before meals <180 mg/dL all other times of the day Specimen Anatomical Collection Method Collection Time Receive d Time (Source) Location / / Volume Laterality Blood specimen 07/09/2017 4:24 PM 017 4:24 (specimen) EST PM EST Yuan Webber MD POINT OF CARE TEST ORDERABLE S Performing Organization Address City/State/ZIP [place] [address] POCT Glucose (07/09/2017 3:19 PM EST) athologist Signature POC Glucose 166 65 - 199 [place] mg/dL [facility] Comment: Supplemental ranges: <140 mg/dL before meals <180 mg/dL all other times of the day Specimen Anatomical Collection Method Collection Time Receive d Time (Source) Location / / Volume Laterality Blood specimen 07/09/2017 3:19 PM 017 3:19 (specimen) EST PM EST Yuan Webber MD POINT OF CARE TEST ORDERABLE S Performing Organization Address City/State/ZIP [place] [address] POCT Glucose (07/09/2017 2:26 PM EST) athologist Signature POC Glucose 179 65 - 199 [place] mg/dL [facility] Comment: Supplemental ranges: <140 [...] [facility]ZIP [place] [address] (ABNORMAL) POCT Glucose (07/09/2017 1:29 PM EST) athologist Signature POC Glucose 210 (H) 65 - 199 [place] mg/dL [facility] Comment: Supplemental ranges: <140 [...] [facility]/ZIP [place] [address] POCT Glucose (07/09/2017 12:20 PM EST) athologist Signature POC Glucose 172 65 - 199 [place] mg/dL [facility] Comment: Supplemental ranges: <140 mg/dL before meals <180 mg/dL all other times of the day Specimen Anatomical Collection Method Collection Time Receive d Time (Source) Location / / Volume Laterality Blood specimen 07/09/2017 12:20 7 (specimen) PM EST 12:20 PM EST uYan Webber MD POINT OF CARE TEST ORDERABLE S Performing Organization Address City/State/ZIP Code Phon e Number [address] POCT Glucose (07/09/2017 11:24 AM EST) P athologist Signature POC Glucose 156 65 - 199 [place] mg/dL [facility] Comment: Supplemental ranges: <140 mg/dL before meals <180 mg/dL all other times of the day Specimen Anatomical Collection Method Collection Time Receive d Time (Source) Location / / Volume Laterality Blood specimen 07/09/2017 11:24 7 (specimen) AM EST 11:24 AM EST Yuan Webber MD POINT OF CARE TEST ORDERABLE S Performing Organization Address City/State/ZIP Code Phon e Number [address] POCT Glucose (07/09/2017 11:11 AM EST) athologist Signature POC Glucose 172 65 - 199 [place] mg/dL [facility] Comment: Supplemental ranges: <140 mg/dL before meals <180 mg/dL all other times of the day Specimen Anatomical Collection Method Collection Time Receive d Time (Source) Location / / Volume Laterality Blood specimen 07/09/2017 11:11 7 (specimen) AM EST 11:11 AM EST Yuan Webber MD POINT OF CARE TEST ORDERABLE S Performing Organization Address City/State/ZIP Code Phon e Number [address] POCT Glucose (07/09/2017 10:08 AM EST) P athologist Signature POC Glucose 176 65 - 199 [place] mg/dL [facility] Comment: Supplemental ranges: <140 mg/dL before meals <180 mg/dL all other times of the day Specimen Anatomical Collection Method Collection Time Receive d Time (Source) Location / / Volume Laterality Blood specimen 07/09/2017 10:08 7 (specimen) AM EST 10:08 AM EST Yuan Webber MD POINT OF CARE TEST ORDERABLE S Performing Organization Address City/State/[place] [address] POCT Glucose (07/09/2017 8:02 AM EST) P athologist Signature POC Glucose 178 65 - 199 [facility] mg/dL [facility] Comment: Supplemental ranges: <140 mg/dL before meals <180 mg/dL all other times of the day Specimen Anatomical Collection Method Collection Time Receive d Time (Source) Location / / Volume Laterality Blood specimen 07/09/2017 8:02 AM 017 8:02 (specimen) EST AM EST Yuan Webber MD POINT OF CARE TEST ORDERABLE S Performing Organization Address City/State/[place] [address] (ABNORMAL) BLOOD GAS 2 ARTERIAL (07/09/2017 5:37 AM EST) Analysis Performed At Patho logist Time Signature pH Art 7.36 7.35 - [facility] 7.45 [facility] pCO2 Art 38 35 - 45 [facility] mmHg [facility] pO2 Art 79 (L) 85 - 104 [facility] LABORATORY HCO3 Art 20.9 20.0 - [facility] 26.0 [facility] mmol/L [facility] LABORATORY BE Art -4.6 (L) -3.0 - 3.0 [facility] mmol/L [facility] Hgb Blood Gas 10.5 (L) 13.7 - [facility] 16.5 gm/dL [facility] O2HB Art 93.8 (L) 94.0 - [facility] 97.0 % [facility] COHB Art 0.3 % [facility] LABOR[facility] Comment: Nonsmokers: 0.5-1.5% COHB Smokers: Variable, but usually less than 10% Toxic: 20-30% COHB Lethal: Greater than 60% COHB METHB Art 0.6 <=1.5 % [facility] LABORATORY Na Whole Blood 141 135 - 145 mmol/L [facility] LABORAT[facility] K Whole Blood 4.5 3.5 - 5.0 mmol/L [facility] Comment: Please note: Patients with WBC >100,000 may have falsely elevated Potassium levels. Contact the Clinical Chemistry L aboratory if there are any questions. ICa Whole Blood 1.01 (L) 1.15 - 1.33 mmol/L [facility] LABORATORY Comment: Note: ??Total bilirubin higher than 20 m g/dL may lead to falsely low ionized calcium. CL Whole Blood 113 (H) 98 - 107 mmol/L [facility] LABORATORY Gluc Whole Bld 175 65 - 199 mg/dL [facility] LABORATORY Comment: Diabetes: >=200 mg/dL plus symp toms. Lactate WB 1.0 0.5 - 2.2 mmol/L [facility] LABORATORY FIO2 Art 40 % [facility] LABORATORY PF Ratio Art 198 [facility] LABORATORY Specimen Anatomical Collection Method Collection Time Receive d Time (Source) Location / / Volume Laterality Blood specimen 07/09/2017 5:37 AM 017 5:37 (specimen) EST AM EST Yuan Webber MD CHEMISTRY ORDERABLES Performing Organization Address City/[facility]/ZIP Code Phon e Number [address] POCT Glucose (07/09/2017 3:27 AM EST) athologist Signature POC Glucose 192 65 - 199 [facility] mg/dL [facility] Comment: Supplemental ranges: <140 [...] [facility]/ZIP [place] [address] (ABNORMAL) Basic Metabolic Panel (non-fasting) (07/09/2017 2:30 AM EST) P athologist Signature Glucose Lvl 179 65 - 199 [facility] mg/dL [facility] Comment: Diabetes: >=200 mg/dL plus symp toms BUN 17 10 - 20 mg/dL [facility] LABORATORY Creatinine 1.34 0.80 - 1.50 mg/dL [facility] LABORATORY Sodium 144 135 - 145 mmol/L [facility] Potassium Not Perf 3.5 - 5.0 mmol/L [facility] Comment: Duplicate order Please note: ??Patients with WBC >100,00 0 may have falsely elevated Potassium levels. ??For accurate Potassium quantif ication in these patients send serum separator tube (gold top) for subsequent determinations. ??Contact the Clinical Chemistry Laboratory if there are any qu estions. Chloride 111 (H) 98 - 107 mmol/L [facility] CO2 21 (L) 22 - 31 mmol/L [facility] Anion Gap 12 5 - 15 mmol/L [facility] LABORATORY Calcium 7.1 (L) 8.5 - 10.5 mg/dL [facility] Comment: result [id number]-[id number] Estimated GFR 53 (L) >=60 [facility]ORY Comment: The reported eGFR should be multiplied b y 1.2 for patients. The MDRD is not an appropriate measure o f renal function for patients with body mass extremes or in patients with acute kidney failure. http://[employer]/DHnkdep http://[employer]/DHMCnkf Specimen Anatomical Collection Method Collection Time Receive d Time (Source) Location / / Volume Laterality Blood specimen Venous Draw / 07/09/2017 2:30 AM 2016 2:42 (specimen) Unknown EST AM EST Resulting Agency Comment Spec In Lab Yuan Webber MD CHEMISTRY ORDERABLES Performing Organization Address City/State/[place] [address] (ABNORMAL) Potassium (07/09/2017 2:30 AM EST) P athologist Signature Potassium 5.1 (H) 3.5 - 5.0 [facility] mmol/L [facility] Comment: Please note: ??Patients [...] Organization Address City/State/[place] [address] (ABNORMAL) Hemogram (07/09/2017 2:30 AM EST) Analysis Performed At Patho logist Time Signature WBC 12.5 (H) 4.0 - 9.5 [facility] x[facility](3)/[facility] LABORATORY RBC 3.38 (L) 4.58 - [facility] SU 5.54 [facility] x10(6)/[facility] LABORATORY Hemoglobin 10.1 (L) 13.7 - [facility] SU 16.5 gm/dL [facility] Hematocrit 30.3 (L) 40.5 - [facility] SU 48.5 % [facility] MCV 89.6 82.9 - [facility] SU 93.1 [facility] LABORATORY MCH 29.9 27.5 - [employer] 32.1 pg [facility] MCHC 33.3 32.0 - [place] [facility] 35.7 gm/dL [facility] Platelets 127 (L) 145 - 357 [facility] x10(3)/[facility] LABORATORY RDWSD 49.3 (H) 36.0 - [facility] 45.0 [facility] LABORATORY RDWCV 15.2 (H) 11.4 - [place] [facility] 13.8 % [facility]ORAT[facility] MPV 9.9 7.6 - 12.9 [facility] [facility] nRBC % Auto 0.0 % [facility] nRBC Abs Auto 0.000 0.000 - [place] 0.000 [facility] x10(3)/[facility] LABORATORY Specimen Anatomical Collection Method Collection Time Receive d Time (Source) Location / / Volume Laterality Blood specimen 07/09/2017 2:30 AM 017 2:41 (specimen) EST AM EST Resulting Agency Comment Spec In Lab Yuan Webber MD HEMATOLOGY ORDERABLES Performing Organization Address City/[facility]/ZIP [place] [address] POCT Glucose (07/09/2017 2:10 AM EST) P athologist Signature POC Glucose 169 65 - 199 [place] SU mg/dL [facility] Comment: Supplemental ranges: <140 [facility]/ZIP [place] [address] POCT Glucose (07/09/2017 1:01 AM EST) P athologist Signature POC Glucose 173 65 - 199 [place] SU mg/dL [facility] Comment: Supplemental ranges: <140 [...] [facility]/ZIP [place] [address] Blood culture (07/09/2017 12:40 AM EST) Patholo gist Method Time Signature Blood Culture No growth BARBARA DAVIS at 5 days. [facility] Specimen Anatomical Collection Method Collection Time Receive d Time (Source) Location / / Volume Laterality Blood specimen STRUCTURE OF RIGHT 07/09/2017 12:40 3:58 (specimen) UPPER LIMB / AM EST AM EST Unknown Resulting Agency Comment Spec In Lab Yuan Webber MD MICROBIOLOGY - BLOOD ORDERAB LES Performing Organization Address City/State/ZIP [place] [address] Blood culture (07/09/2017 12:30 AM EST) [facility] Method Time Signature Blood Culture No growth BARBARA DAVIS at 5 days. [facility] Specimen Anatomical Collection Method Collection Time Receive d Time (Source) Location / / Volume Laterality Blood specimen STRUCTURE OF LEFT 07/09/2017 12:30 1211/2016 3:59 (specimen) UPPER LIMB / AM EST AM EST Unknown Resulting Agency Comment Spec In Lab Yuan Webber MD MICROBIOLOGY - BLOOD ORDERAB LES Performing Organization Address City/[facility]/ZIP [place] [address] (ABNORMAL) Urinalysis Microscopic Exam (07/09/2017 12:05 AM EST) Analysis Performed At Patho logist Time Signature RBC UA 32 (H) 0 - 3 /HPF [facility] WBC UA 5 (H) 0 - 3 /HPF [facility] Squam Epith UA <1 <=4 /HPF [facility] Hyaline Cast 17 (H) 0 - 2 /LPF [facility] Gran Cast UA 1 (H) <=0 /LPF [facility] Uric Ac Bianca Rare (A) None /HPF [facility] Specimen (Source) Anatomical Collection Method Collection Time Re ceived Time Location / / Volume Laterality Urine specimen 07/09/2017 12:05 7 obtained via AM EST 12:39 AM EST indwelling urinary catheter (specimen) Resulting Agency Comment Spec In Lab Yuan Webber MD URINE ORDERABLES Performing Organization Address City/[facility]/ZIP [place] [address] (ABNORMAL) Urinalysis with reflex Culture (07/09/2017 12:05 AM EST) [facility] [employer] PTY Method Time Signature Glucose UA Negative Negative [facility] mg/dL [facility] Protein UA 30 (A) Negative [facility] mg[facility]dL [facility] Bilirubin UA Negative Negative [facility]/dL [facility] Comment: Clinical correlation required for positi ve Urine Bilirubin results as false positive may occur with some drugs and d rug related products. If a false positive is suspected a serum total bili yeager should be considered if clinically indicated. Urobilinogen UA Normal Normal mg/dL [facility] LABORAT[facility] pH UA 5.0 5.0 - 8.0 [facility] Blood UA Moderate (A) Negative mg/dL [facility] Ketones UA Negative Negative mg/dL [facility] Nitrite UA Negative Negative [facility] Leukocytes UA Negative Negative [facility] LABORATORY Appearance UA Hazy (A) Clear [facility] LABORATORY Spec [place] UA 1.025 1.002 - 1.030 [facility] Color UA Yellow Yellow [facility] Culture Reflexed No [facility] LABOR[facility]ORY Specimen (Source) Anatomical Collection Method Collection Time Re ceived Time Location / / Volume Laterality Urine specimen 07/09/2017 12:05 7 obtained via AM EST 12:39 AM EST indwelling urinary catheter (specimen) Resulting Agency Comment Spec In Lab Yuan Webber MD URINE ORDERABLES Performing Organization Address City/State/[place] [address] POCT Glucose (07/08/2017 11:01 PM EST) P athologist Signature POC Glucose 191 65 - 199 [facility] mg/dL [facility] Comment: Supplemental ranges: <140 mg/dL before meals <180 mg/dL all other times of the day Specimen Anatomical Collection Method Collection Time Receive d Time (Source) Location / / Volume Laterality Blood specimen 07/08/2017 11:01 7 (specimen) PM EST 11:01 PM EST Yuan Webber MD POINT OF CARE TEST ORDERABLE S Performing Organization Address City/State/ZIP [place] [address] POCT Glucose (07/08/2017 10:04 PM EST) athologist Signature POC Glucose 198 65 - 199 [facility] mg/dL [facility] Comment: Supplemental ranges: <140 mg/dL before meals <180 mg/dL all other times of the day Specimen Anatomical Collection Method Collection Time Receive d Time (Source) Location / / Volume Laterality Blood specimen 07/08/2017 10:04 7 (specimen) PM EST 10:04 PM EST Yuan Webber MD POINT OF CARE TEST ORDERABLE S Performing Organization Address City/State/ZIP [place] [address] Prepare Albumin 5% in 250 mL (07/08/2017 8:49 PM EST) athologist Signature Dispensed? Yes [facility] Specimen Anatomical Collection Method Collection Time Receive d Time (Source) Location / / Volume Laterality Blood specimen No Charge / 07/08/2017 8:49 PM 017 8:51 (specimen) Unknown EST PM EST Resulting Agency Comment Spec In Lab [facility] ORDERABLES Performing Organization Address City/State/ZIP [place] [address] POCT Glucose (07/08/2017 8:28 PM EST) athologist Signature POC Glucose 195 65 - 199 [facility] mg/dL [facility] Comment: Supplemental ranges: <140 mg/dL before meals <180 mg/dL all other times of the day Specimen Anatomical Collection Method Collection Time Receive d Time (Source) Location / / Volume Laterality Blood specimen 07/08/2017 8:28 PM 017 8:28 (specimen) EST PM EST Yuan Webber MD POINT OF CARE TEST ORDERABLE S Performing Organization Address City/State/ZIP [place] [address] (ABNORMAL) POCT Glucose (07/08/2017 7:13 PM EST) P athologist Signature POC Glucose 220 (H) 65 - 199 [facility] mg/dL [facility] Comment: Supplemental ranges: <140 mg/dL before meals <180 mg/dL all other times of the day Specimen Anatomical Collection Method Collection Time Receive d Time (Source) Location / / Volume Laterality Blood specimen 07/08/2017 7:13 PM 017 7:13 (specimen) EST PM EST Yuan Webber MD POINT OF CARE TEST ORDERABLE S Performing Organization Address City/State/ZIP Code Phon e Number [address] POCT Glucose (07/08/2017 5:04 PM EST) athologist Signature POC Glucose 147 65 - 199 [facility] Comment: Supplemental ranges: <140 mg/dL before meals <180 mg/dL all other times of the day Specimen Anatomical Collection Method Collection Time Receive d Time (Source) Location / / Volume Laterality Blood specimen 07/08/2017 5:04 PM 017 5:04 (specimen) EST PM EST Yuan Webber MD POINT OF CARE TEST ORDERABLE S Performing Organization Address City/State/ZIP [place] [address] (ABNORMAL) BLOOD GAS 2 ARTERIAL (07/08/2017 4:13 PM EST) Analysis Performed At Patho logist Time Signature pH Art 7.38 7.35 - [facility] 7.45 [facility] pCO2 Art 36 35 - 45 [facility] LABORATORY pO2 Art 91 85 - 104 [facility] LABORATORY HCO3 Art 20.9 20.0 - [facility] 26.0 [facility] mmol/L [facility] LABORATORY BE Art -4.2 (L) -3.0 - 3.0 [facility] mmol/L [facility] Hgb Blood Gas 11.7 (L) 13.7 - [facility] 16.5 gm/dL [facility] O2HB Art 95.1 94.0 - [facility] 97.0 % [facility] COHB Art 0.6 % [facility] Comment: Nonsmokers: 0.5-1.5% COHB Smokers: Variable, but usually less than 10% Toxic: 20-30% COHB Lethal: Greater than 60% COHB METHB Art 0.6 <=1.5 % [facility] LABORATORY Na Whole Blood 139 135 - 145 mmol/L [facility] K Whole Blood 4.2 3.5 - 5.0 mmol/L [facility] Comment: Please note: Patients with WBC >100,000 may have falsely elevated Potassium levels. Contact the Clinical Chemistry L aboratory if there are any questions. ICa Whole Blood 1.05 (L) 1.15 - 1.33 mmol/L [facility] Comment: Note: ??Total bilirubin higher than 20 m g/dL may lead to falsely low ionized calcium. CL Whole Blood 110 (H) 98 - 107 mmol/L [facility] LABORATORY Gluc Whole Bld 155 65 - 199 mg/dL [facility] Comment: Diabetes: >=200 mg/dL plus symp toms. Lactate WB 1.4 0.5 - 2.2 mmol/L [facility] LABORATORY FIO2 Art 40 % [facility] LABORATORY PF Ratio Art 228 [facility] LABORATORY Specimen Anatomical Collection Method Collection Time Receive d Time (Source) Location / / Volume Laterality Blood specimen 07/08/2017 4:13 PM 017 4:13 (specimen) EST PM EST Yuan Webber MD CHEMISTRY ORDERABLES Performing Organization Address City/State/[place] [address] POCT Glucose (07/08/2017 4:01 PM EST) P athologist Signature POC Glucose 148 65 - 199 [facility] mg/dL [facility] Comment: Supplemental ranges: <140 mg/dL before meals <180 mg/dL all other times of the day Specimen Anatomical Collection Method Collection Time Receive d Time (Source) Location / / Volume Laterality Blood specimen 07/08/2017 4:01 PM 017 4:01 (specimen) EST PM EST Yuan Webber MD POINT OF CARE TEST ORDERABLE S Performing Organization Address City/State/ZIP Code Phon e Number [address] POCT Glucose (07/08/2017 3:21 PM EST) athologist Signature POC Glucose 118 65 - 199 BARBARA ZHAOSU mg/dL [facility] Comment: Supplemental ranges: <140 [...] [facility]/ZIP Code Phon e Number [address] POCT Glucose (07/08/2017 2:01 PM EST) athologist Signature POC Glucose 129 65 - 199 [place] SU mg/dL [facility] Comment: Supplemental ranges: <140 mg/dL before meals <180 mg/dL all other times of the day Specimen Anatomical Collection Method Collection Time Receive d Time (Source) Location / / Volume Laterality Blood specimen 07/08/2017 2:01 PM 017 2:01 (specimen) EST PM EST Yuan Webber MD POINT OF CARE TEST ORDERABLE S Performing Organization Address City/State/ZIP [place] [address] POCT Glucose (07/08/2017 11:53 AM EST) athologist Signature POC Glucose 156 65 - 199 [place] SU mg/dL [facility] Comment: Supplemental ranges: <140 mg/dL before meals <180 mg/dL all other times of the day Specimen Anatomical Collection Method Collection Time Receive d Time (Source) Location / / Volume Laterality Blood specimen 07/08/2017 11:53 7 (specimen) AM EST 11:53 AM EST Yuan Webber MD POINT OF CARE TEST ORDERABLE S Performing Organization Address City/State/ZIP Code Phon e Number [address] POCT Glucose (07/08/2017 11:04 AM EST) athologist Signature POC Glucose 181 65 - 199 [facility] mg/dL [facility] Comment: Supplemental ranges: <140 [...] [facility]ZIP [place] [address] (ABNORMAL) POCT Glucose (07/08/2017 9:24 AM EST) athologist Signature POC Glucose 203 (H) 65 - 199 [facility] mg/dL [facility] Comment: Supplemental ranges: <140 [...] [facility]/ZIP [place] [address] APTT (07/08/2017 8:40 AM EST) athologist Signature PTT 33 25 - 35 sec [facility] Comment: The recommended therapeutic range for fu ll dose, unfractionated heparin at [facility] is 80 ? 114 [...] Webber MD HEMATOLOGY ORDERABLES Performing Organization Address City/[facility]/ZIP [place] [address] (ABNORMAL) Prothrombin Time (07/08/2017 8:40 AM EST) P athologist Signature PT 15.6 (H) 11.8 - 14.0 [facility] LABORATORY INR 1.3 (H) 0.9 - 1.1 [facility] LABORATORY Comment: An INR [...] Webber MD HEMATOLOGY ORDERABLES Performing Organization Address City/[facility]/ZIP [place] [address] (ABNORMAL) POCT Glucose (07/08/2017 7:38 AM EST) P athologist Signature POC Glucose 232 (H) 65 - 199 [facility] mg/dL [facility] Comment: Supplemental ranges: <140 mg/dL before meals <180 mg/dL all other times of the day Specimen Anatomical Collection Method Collection Time Receive d Time (Source) Location / / Volume Laterality Blood specimen 07/08/2017 7:38 AM 017 7:38 (specimen) EST AM EST Yuan Webber MD POINT OF CARE TEST ORDERABLE S Performing Organization Address City/State/ZIP [place] [address] (ABNORMAL) POCT Glucose (07/08/2017 7:07 AM EST) athologist Signature POC Glucose 234 (H) 65 - 199 [facility] mg/dL [facility] Comment: Supplemental ranges: <140 mg/dL before meals <180 mg/dL all other times of the day Specimen Anatomical Collection Method Collection Time Receive d Time (Source) Location / / Volume Laterality Blood specimen 07/08/2017 7:07 AM 017 7:07 (specimen) EST AM EST Yuan Webber MD POINT OF CARE TEST ORDERABLE S Performing Organization Address City/State/ZIP [place] [address] (ABNORMAL) POCT Glucose (07/08/2017 6:04 AM EST) athologist Signature POC Glucose 225 (H) 65 - 199 [facility] mg/dL [facility] Comment: Supplemental ranges: <140 mg/dL before meals <180 mg/dL all other times of the day Specimen Anatomical Collection Method Collection Time Receive d Time (Source) Location / / Volume Laterality Blood specimen 07/08/2017 6:04 AM 017 6:04 (specimen) EST AM EST Yuan Webber MD POINT OF CARE TEST ORDERABLE S Performing Organization Address City/State/ZIP [place] [address] (ABNORMAL) POCT Glucose (07/08/2017 5:31 AM EST) athologist Signature POC Glucose 216 (H) 65 - 199 [facility] mg/dL [facility] Comment: Supplemental ranges: <140 mg/dL before meals <180 mg/dL all other times of the day Specimen Anatomical Collection Method Collection Time Receive d Time (Source) Location / / Volume Laterality Blood specimen 07/08/2017 5:31 AM 017 5:31 (specimen) EST AM EST Yuan Webber MD POINT OF CARE TEST ORDERABLE S Performing Organization Address City/State/ZIP [place] [address] (ABNORMAL) POCT Glucose (07/08/2017 4:52 AM EST) P athologist Signature POC Glucose 257 (H) 65 - 199 [facility] mg/dL [facility] Comment: Supplemental ranges: <140 mg/dL before meals <180 mg/dL all other times of the day Specimen Anatomical Collection Method Collection Time Receive d Time (Source) Location / / Volume Laterality Blood specimen 07/08/2017 4:52 AM 017 4:52 (specimen) EST AM EST Daphne Shahid MD POINT OF CARE TEST ORDERABLE S Performing Organization Address City/State/[place] [address] (ABNORMAL) BLOOD GAS 2 ARTERIAL (07/08/2017 4:04 AM EST) Analysis Performed At Patho logist Time Signature pH Art 7.30 (L) 7.35 - [facility] 7.45 [facility] pCO2 Art 41 35 - 45 [facility] LABORATORY pO2 Art 83 (L) 85 - 104 [facility] LABORATORY HCO3 Art 19.6 (L) 20.0 - [facility] 26.0 [facility] mmol/[facility] LABORATORY BE Art -6.8 (L) -3.0 - 3.0 [facility] mmol/L [facility]ORATORY Hgb Blood Gas 12.2 (L) 13.7 - [facility] 16.5 gm/dL [facility] O2HB Art 93.5 (L) 94.0 - [facility] 97.0 % [facility] COHB Art 0.4 % [facility] Comment: Nonsmokers: 0.5-1.5% COHB Smokers: Variable, but usually less than 10% Toxic: 20-30% COHB Lethal: Greater than 60% COHB METHB Art 0.8 <=1.5 % [facility] LABORATORY Na Whole Blood 138 135 - 145 mmol/L [facility] K Whole Blood 4.4 3.5 - 5.0 mmol/L [facility] Comment: Please note: Patients with WBC >100,000 may have falsely elevated Potassium levels. Contact the Clinical Chemistry L aboratory if there are any questions. ICa Whole Blood 1.05 (L) 1.15 - 1.33 mmol/L [facility] Comment: Note: ??Total bilirubin higher than 20 m g/dL may lead to falsely low ionized calcium. CL Whole Blood 107 98 - 107 mmol/L [facility] Gluc Whole Bld 274 (H) 65 - 199 mg/dL [facility] Comment: Diabetes: >=200 mg/dL plus symp toms. Lactate WB 4.4 (Critical) 0.5 - 2.2 mmol/L [facility] Comment: Noted by gyroscopic instrument tester. FIO2 Art 40 % [facility] LABORATORY PF Ratio Art 208 [facility] LABORATORY Specimen Anatomical Collection Method Collection Time Receive d Time (Source) Location / / Volume Laterality Blood specimen 07/08/2017 4:04 AM 017 4:04 (specimen) EST AM EST Daphne Shahid MD CHEMISTRY ORDERABLES Performing Organization Address City/State/ZIP [place] [address] Scan, Peripheral Blood (07/08/2017 4:00 AM EST) P athologist Signature Plat Estimate Normal [facility] RBC Morphology Normal [facility] Specimen Anatomical Collection Method Collection Time Receive d Time (Source) Location / / Volume Laterality Blood specimen 07/08/2017 4:00 AM 017 4:09 (specimen) EST AM EST Resulting Agency Comment Spec In Lab Yuan Webber MD HEMATOLOGY ORDERABLES Performing Organization Address City/[facility]/ZIP [place] [address] (ABNORMAL) Differential, Automated (07/08/2017 4:00 AM EST) Patholo gist Method Time Signature Neutrophils % 85.4 % [facility] LABORATORY Neutr Abs (ANC) 16.07 (H) 1.70 - [facility] 6.10 [facility] x10(3)/[facility] L LABORATORY Lymphocytes % 3.5 % [facility] LABORATORY Lymphocytes Abs 0.6 (L) 0.9 - 3.2 [facility] x10(3)/[facility] LABORATORY Monocytes % 10.4 % [facility] LABORATORY Monocyte Abs 2.0 (H) 0.3 - 0.9 [facility] x10(3)/[facility] LABORATORY Eosinophils % 0.0 % [facility] LABORATORY Eosinophils Abs 0.0 0.0 - 0.4 [facility] x10(3)/[facility] LABORATORY Basophils % 0.1 % [facility] LABORATORY Basophils Abs 0.0 0.0 - 0.1 [facility] x10(3)/[facility] LABORATORY Immature Gran % 0.60 % [facility] [...] Abs 0.12 (H) 0.00 - 0.04 x10(3)/[facility] LABORATORY Specimen Anatomical Collection Method Collection Time Receive d Time (Source) Location / / Volume Laterality Blood specimen 07/08/2017 4:00 AM 017 4:09 (specimen) EST AM EST Resulting Agency Comment Spec In Lab Yuan Webber MD HEMATOLOGY ORDERABLES Performing Organization Address City/State/[place] [address] (ABNORMAL) Hemogram (07/08/2017 4:00 AM EST) Analysis Performed At Patho logist Time Signature WBC 18.8 (H) 4.0 - 9.5 [facility] x10(3)/[facility] LABORATORY RBC 4.00 (L) 4.58 - [facility] 5.54 [facility] x10(6)/[facility] LABORATORY Hemoglobin 11.9 (L) 13.7 - [facility] 16.5 gm/dL [facility]OR[facility]ORY Hematocrit 35.9 (L) 40.5 - BARBARA DAVIS 48.5 % [facility] LABORATORY MCV 89.8 82.9 - [place] SU 93.1 [facility] LABORATORY MCH 29.8 27.5 - BARBARA OLIVASCK 32.1 pg [facility] LABORATORY MCHC 33.1 32.0 - [facility]BARA ZHAOSU 35.7 gm/dL [facility] LABORATORY Platelets 232 145 - 357 [facility] x10(3)/[facility] LABORATORY RDWSD 47.6 (H) 36.0 - [facility] ZHAOSU 45.0 [facility] LABORATORY RDWCV 14.5 (H) 11.4 - [facility] 13.8 % [facility] LABORATORY MPV 9.5 7.6 - 12.9 [facility] LABORATORY nRBC % Auto 0.0 % [facility] LABORATORY nRBC Abs Auto 0.000 0.000 - [facility] 0.000 [facility] x10(3)/[facility] LABORATORY Specimen Anatomical Collection Method Collection Time Receive d Time (Source) Location / / Volume Laterality Blood specimen 07/08/2017 4:00 AM 017 4:09 (specimen) EST AM EST Resulting Agency Comment Spec In Lab Yuan Webber MD HEMATOLOGY ORDERABLES Performing Organization Address City/State/[place] [address] (ABNORMAL) Electrolytes panel (07/08/2017 4:00 AM EST) P athologist Signature Sodium 139 135 - 145 [facility] mmol/L [facility]ORY Potassium 4.7 3.5 - 5.0 [facility] mmol/L [facility] Comment: result [id number] Please note: [...] Anion Gap 14 5 - 15 mmol/L [facility] LAB[facility] Specimen Anatomical Collection Method Collection Time Receive d Time (Source) Location / / Volume Laterality Blood specimen 07/08/2017 4:00 AM 017 4:10 (specimen) EST AM EST Resulting Agency Comment Spec In Lab Yuan Webber MD CHEMISTRY ORDERABLES Performing Organization Address City/State/[place] [address] (ABNORMAL) Cardiac Enzymes (LEB/CGP) (07/08/2017 4:00 AM EST) P athologist Signature Troponin-T 1.88 (H) 0.00 - [facility] 0.00 ng/mL [facility] Comment: The 99th percentile for Troponin T is le ss than 0.01 ng/mL, any detectable cTnT concentration using this assay should be considered elevated. According to the third universal definit ion of myocardial infarction the following criteria with a clinical prese ntation consistent with acute myocardial ischemia meets the diagnosis for a myocardial infarction (MA). Detection of a rise and/or fall of [...] additional sample may be indicated. Reference: Third [place] Definition of Myocardial Infarction. Journal of the [place] [employer] 2012;60:1581-98 CK, Total 413 (H) 0 - 200 unit/L [facility] Comment: result rechecked-[id number] Specimen Anatomical Collection Method Collection Time Receive d Time (Source) Location / / Volume Laterality Blood specimen 07/08/2017 4:00 AM 017 4:09 (specimen) EST AM EST Resulting Agency Comment Spec In Lab Yuan Webber MD CHEMISTRY ORDERABLES Performing Organization Address City/[facility]/ZIP Code Phon e Number [address] (ABNORMAL) Glucose, fasting (07/08/2017 4:00 AM EST) P athologist Signature Glucose 287 (H) 65 - 99 [facility] Fasting mg/dL [facility] Comment: ?Fasting* Glucose Interpretive [...] of Diabetes Mellitus, Position Statement from the [place] [employer]. ??Diabete s Care, Volume 33, Supplement 1, Jul 2009 Specimen Anatomical Collection Method Collection Time Receive d Time (Source) Location / / Volume Laterality Blood specimen 07/08/2017 4:00 AM 017 4:09 (specimen) EST AM EST Resulting Agency Comment Spec In Lab Yuan Webber MD CHEMISTRY ORDERABLES Performing Organization Address City/[facility]/ZIP [place] [address] (ABNORMAL) Creatinine (07/08/2017 4:00 AM EST) Analysis Performed At Patho logist Time Signature Creatinine 1.55 (H) 0.80 - [facility]BARA ZHAOSU 1.50 mg/dL [facility] Estimated GFR 44 (L) >=60 [facility] Comment: The reported eGFR should be multiplied b y 1.2 for patients. The MDRD is not an appropriate measure o f renal function for patients with body mass extremes or in patients with acute kidney failure. http://[employer].Snapeee/DHnkdep http://[employer]ee/DHMCnkf Specimen Anatomical Collection Method Collection Time Receive d Time (Source) Location / / Volume Laterality Blood specimen 07/08/2017 4:00 AM 017 4:09 (specimen) EST AM EST Resulting Agency Comment Spec In Lab Yuan Webber MD CHEMISTRY ORDERABLES Performing Organization Address City/[facility]/ZIP [place] [address] BUN (07/08/2017 4:00 AM EST) athologist Signature BUN 16 10 - 20 [place] mg/dL [facility] Specimen Anatomical Collection Method Collection Time Receive d Time (Source) Location / / Volume Laterality Blood specimen 07/08/2017 4:00 AM 017 4:09 (specimen) EST AM EST Resulting Agency Comment Spec In Lab Yuan Webber MD CHEMISTRY ORDERABLES Performing Organization Address City/[facility]/ZIP [place] [address] (ABNORMAL) POCT Glucose (07/08/2017 3:00 AM EST) athologist Signature POC Glucose 273 (H) 65 - 199 [facility] mg[facility]dL [facility] Comment: Supplemental ranges: <140 [...] [facility]/ZIP [place] [address] (ABNORMAL) POCT Glucose (07/08/2017 1:57 AM EST) athologist Signature POC Glucose 288 (H) 65 - 199 [place] mg/dL [facility] Comment: Supplemental ranges: <140 mg/dL before meals <180 mg/dL all other times of the day Specimen Anatomical Collection Method Collection Time Receive d Time (Source) Location / / Volume Laterality Blood specimen 07/08/2017 1:57 AM 017 1:57 (specimen) EST AM EST Daphne Shahid MD POINT OF CARE TEST ORDERABLE S Performing Organization Address City/State/ZIP [place] [address] (ABNORMAL) POCT Glucose (07/08/2017 1:01 AM EST) P athologist Signature POC Glucose 315 (H) 65 - 199 [facility] mg/dL [facility] Comment: Supplemental ranges: <140 [...] [facility]/ZIP [place] [address] (ABNORMAL) BLOOD GAS 2 ARTERIAL (07/08/2017 12:09 AM EST) P athologist Signature pH Art 7.26 7.35 - [facility] (Critical) 7.45 [facility] Comment: Noted by gyroscopic instrument tester. pCO2 Art 41 35 - 45 mmHg [facility] pO2 Art 96 85 - 104 mmHg [facility] HCO3 Art 17.7 (L) 20.0 - 26.0 mmol/L [facility] BE Art -9.4 (L) -3.0 - 3.0 mmol/L [facility] Hgb Blood Gas 12.4 (L) 13.7 - 16.5 gm/dL [facility] O2HB Art 94.7 94.0 - 97.0 % [facility] COHB Art 0.2 % [facility] Comment: Nonsmokers: 0.5-1.5% COHB Smokers: Variable, but usually less than 10% Toxic: 20-30% COHB Lethal: Greater than 60% COHB METHB Art 0.6 <=1.5 % [facility] Na Whole Blood 141 135 - 145 mmol/L [facility] K Whole Blood 3.5 3.5 - 5.0 mmol/L [facility] Comment: Please note: Patients with WBC >100,000 may have falsely elevated Potassium levels. Contact the Clinical Chemistry L aboratory if there are any questions. ICa Whole Blood 1.03 (L) 1.15 - 1.33 mmol/L [facility] Comment: Note: ??Total bilirubin higher than 20 m g/dL may lead to falsely low ionized calcium. CL Whole Blood 109 (H) 98 - 107 mmol/L [facility] Gluc Whole Bld 315 (H) 65 - 199 mg/dL [facility] Comment: Diabetes: >=200 mg/dL plus symp toms. Lactate WB 7.6 (Critical) 0.5 - 2.2 mmol/L [facility] Comment: Noted by gyroscopic instrument tester. FIO2 Art 40 % [facility] PF Ratio Art 240 [facility] Specimen Anatomical Collection Method Collection Time Receive d Time (Source) Location / / Volume Laterality Blood specimen Arterial Draw / 07/08/2017 12:09 2016 5:31 (specimen) Unknown AM EST AM EST Resulting Agency Comment Spec In Lab Samy Maldonado MD CHEMISTRY ORDERABLES Performing Organization Address City/State/[place] [address] (ABNORMAL) POCT Glucose (07/07/2017 10:56 PM EST) P athologist Signature POC Glucose 292 (H) 65 - 199 [facility] mg/dL [facility] Comment: Supplemental ranges: <140 mg/dL before meals <180 mg/dL all other times of the day Specimen Anatomical Collection Method Collection Time Receive d Time (Source) Location / / Volume Laterality Blood specimen 07/07/2017 10:56 7 (specimen) PM EST 10:56 PM EST Daphne Shahid MD POINT OF CARE TEST ORDERABLE S Performing Organization Address City/State/[place] [address] (ABNORMAL) BLOOD GAS 2 ARTERIAL (07/07/2017 10:04 PM EST) P athologist Signature pH Art 7.22 7.35 - [facility] (Critical) 7.45 [facility] Comment: Noted by gyroscopic instrument tester. pCO2 Art 42 35 - 45 mmHg [facility] pO2 Art 94 85 - 104 mmHg [facility] HCO3 Art 16.9 (L) 20.0 - 26.0 mmol/L [facility] BE Art -10.7 (L) -3.0 - 3.0 mmol/L [facility] Hgb Blood Gas 13.0 (L) 13.7 - 16.5 gm/dL [facility] O2HB Art 93.8 (L) 94.0 - 97.0 % [facility] COHB Art 0.7 % [facility] Comment: Nonsmokers: 0.5-1.5% COHB Smokers: Variable, but usually less than 10% Toxic: 20-30% COHB Lethal: Greater than 60% COHB METHB Art 0.7 <=1.5 % [facility] Na Whole Blood 140 135 - 145 mmol/L [facility] K Whole Blood 3.3 (L) 3.5 - 5.0 mmol/L [facility] Comment: Please note: Patients with WBC >100,000 may have falsely elevated Potassium levels. Contact the Clinical Chemistry L aboratory if there are any questions. ICa Whole Blood 1.07 (L) 1.15 - 1.33 mmol/L [facility] Comment: Note: ??Total bilirubin higher than 20 m g/dL may lead to falsely low ionized calcium. CL Whole Blood 107 98 - 107 mmol/L [facility] Gluc Whole Bld 304 (H) 65 - 199 mg/dL [facility] Comment: Diabetes: >=200 mg/dL plus symp toms. Lactate WB 8.2 (Critical) 0.5 - 2.2 mmol/L [facility] Comment: Noted by gyroscopic instrument tester. FIO2 Art 40 % [facility] PF Ratio Art 235 [facility] Specimen Anatomical Collection Method Collection Time Receive d Time (Source) Location / / Volume Laterality Blood specimen 07/07/2017 10:04 7 (specimen) PM EST 10:04 PM EST Daphne Shahid MD CHEMISTRY ORDERABLES Performing Organization Address City/[facility]/ZIP Code Phon e Number [address] (ABNORMAL) Hemoglobin (07/07/2017 10:00 PM EST) P athologist Signature Hemoglobin 12.8 (L) 13.7 - [facility] 16.5 gm/dL [facility] Specimen Anatomical Collection Method Collection Time Receive d Time (Source) Location / / Volume Laterality Blood specimen 07/07/2017 10:00 7 (specimen) PM EST 10:13 PM EST Resulting Agency Comment Spec In Lab Yuan Webber MD HEMATOLOGY ORDERABLES Performing Organization Address City/[facility]/ZIP [place] [address] (ABNORMAL) Potassium (07/07/2017 10:00 PM EST) P athologist Signature Potassium 3.4 (L) 3.5 - 5.0 [facility] mmol/L [facility] Comment: Please note: ??Patients [...] Address City/State/ZIP [place] [address] (ABNORMAL) POCT Glucose (07/07/2017 8:49 PM EST) P athologist Signature POC Glucose 241 (H) 65 - 199 [facility] mg/dL [facility] Comment: Supplemental ranges: <140 [...] [facility]/ZIP [place] [address] Prepare Albumin 5% in 250 mL (07/07/2017 8:03 PM EST) athologist Signature Dispensed? Yes [facility] Specimen Anatomical Collection Method Collection Time Receive d Time (Source) Location / / Volume Laterality Blood specimen No Charge / 07/07/2017 8:03 PM 017 8:04 (specimen) Unknown EST PM EST Resulting Agency Comment Spec In Lab Michael BROWN BLOOD BANK ORDERABLES Performing Organization Address City/[facility]/ZIP [place] [address] EKG 12 Lead (07/07/2017 7:17 PM EST) Component Value Ref Range Test Analysis Performed Pathologis t Method Time At Signature Ventricular rate 75 BPM MUSE SYSTEM Atrial Rate 75 BPM MUSE SYSTEM P-R Interval 168 ms MUSE SYSTEM QRS Duration 104 ms MUSE SYSTEM Q-T Interval 462 ms MUSE SYSTEM QTC Calculated 515 ms MUSE SYSTEM (Bezet) Calculated P [place] 52 degrees MUSE SYSTEM Calculated R [place] -40 degrees MUSE SYSTEM Calculated T [place] 39 degrees MUSE SYSTEM INTERPRETATION Normal sinus [...] athologist Signature pH Art 7.21 7.35 - [facility] (Critical) 7.45 [facility] Comment: Noted by gyroscopic instrument tester. pCO2 Art 50 (H) 35 - 45 mmHg [facility] pO2 Art 238 (H) 85 - 104 mmHg [facility] HCO3 Art 19.8 (L) 20.0 - 26.0 mmol/L [facility] BE Art -8.1 (L) -3.0 - 3.0 mmol/L [facility] Hgb Blood Gas 12.8 (L) 13.7 - 16.5 gm/dL [facility] O2HB Art 97.5 (H) 94.0 - 97.0 % [facility] COHB Art 0.5 % [facility] Comment: Nonsmokers: 0.5-1.5% COHB Smokers: Variable, but usually less than 10% Toxic: 20-30% COHB Lethal: Greater than 60% COHB METHB Art 0.7 <=1.5 % [facility] Na Whole Blood 140 135 - 145 mmol/L [facility] K Whole Blood 3.0 (Critical) 3.5 - 5.0 mmol/L [facility] Comment: Noted by gyroscopic instrument tester. Please note: Patients with WBC >100,000 may have falsely elevated Potassium levels. Contact the Clinical Chemistry L aboratory if there are any questions. ICa Whole Blood 1.07 (L) 1.15 - 1.33 mmol/L [facility] Comment: Note: ??Total bilirubin higher than 20 m g/dL may lead to falsely low ionized calcium. CL Whole Blood 107 98 - 107 mmol/L [facility] Gluc Whole Bld 270 (H) 65 - 199 mg/dL [facility] Comment: Diabetes: >=200 mg/dL plus symp toms. Lactate WB 4.9 (Critical) 0.5 - 2.2 mmol/L [facility] Comment: Noted by gyroscopic instrument tester. FIO2 Art 100 % [facility] PF Ratio Art 238 [facility] Specimen Anatomical Collection Method Collection Time Receive d Time (Source) Location / / Volume Laterality Blood specimen 07/07/2017 6:57 PM 017 6:57 (specimen) EST PM EST Daphne Shahid MD CHEMISTRY ORDERABLES Performing Organization Address City/State/[place] [address] (ABNORMAL) BLOOD GAS 2 ARTERIAL (07/07/2017 5:31 PM EST) athologist Signature pH Art 7.29 7.35 - [facility] (Critical) 7.45 [facility] Comment: Noted by gyroscopic instrument tester. pCO2 Art 48 (H) 35 - 45 mmHg [facility] pO2 Art 137 (H) 85 - 104 mmHg [facility] HCO3 Art 22.4 20.0 - 26.0 mmol/L [facility] BE Art -4.3 (L) -3.0 - 3.0 mmol/L [facility] Hgb Blood Gas 10.0 (L) 13.7 - 16.5 gm/dL [facility] O2HB Art 97.3 (H) 94.0 - 97.0 % [facility] COHB Art 0.3 % [facility] Comment: Nonsmokers: 0.5-1.5% COHB Smokers: Variable, but usually less than 10% Toxic: 20-30% COHB Lethal: Greater than 60% COHB METHB Art 0.3 <=1.5 % [facility] Na Whole Blood 132 (L) 135 - 145 mmol/L [facility] K Whole Blood 4.0 3.5 - 5.0 mmol/L [facility] Comment: Please note: Patients with WBC >100,000 may have falsely elevated Potassium levels. Contact the Clinical Chemistry L aboratory if there are any questions. ICa Whole Blood 1.14 (L) 1.15 - 1.33 mmol/L [facility] Comment: Note: ??Total bilirubin higher than 20 m g/dL may lead to falsely low ionized calcium. CL Whole Blood 105 98 - 107 mmol/L [facility] Gluc Whole Bld 293 (H) 65 - 199 mg/dL [facility] Comment: Diabetes: >=200 mg/dL plus symp toms. Lactate WB 3.1 (H) 0.5 - 2.2 mmol/L [facility] Specimen Anatomical Collection Method Collection Time Receive d Time (Source) Location / / Volume Laterality Blood specimen 07/07/2017 5:31 PM 017 5:31 (specimen) EST PM EST Daphne Shahid MD CHEMISTRY ORDERABLES Performing Organization Address City/[facility]/ZIP Code Phon e Number [address] Fibrinogen (07/07/2017 5:30 PM EST) P athologist Signature Fibrinogen 224 180 - 510 [facility] mg/dL [facility] Comment: Called by: JEET, Read [...] Perez MD HEMATOLOGY ORDERABLES Performing Organization Address City/[facility] Phon e Number [address] APTT (07/07/2017 5:30 PM EST) P athologist Signature PTT 30 25 - 35 sec [facility] Comment: The recommended therapeutic range for fu ll dose, unfractionated heparin at [facility] is 80 ? 114 [...] Perez MD HEMATOLOGY ORDERABLES Performing Organization Address City/[facility]/ZIP [place] [address] (ABNORMAL) Prothrombin Time (07/07/2017 5:30 PM EST) P athologist Signature PT 19.0 (H) 11.8 - 14.0 [facility] LABORATORY INR 1.6 (H) 0.9 - 1.1 [facility] Comment: An INR [...] Perez MD HEMATOLOGY ORDERABLES Performing Organization Address City/[facility]/[place] [address] (ABNORMAL) Hemogram (07/07/2017 5:30 PM EST) P athologist Signature WBC 19.6 (H) 4.0 - 9.5 [facility] x10(3)/[facility] LABORATORY RBC 3.08 (L) 4.58 - [facility] 5.54 [facility] x10(6)/[facility] LABORATORY Hemoglobin 9.2 (L) 13.7 - [facility] 16.5 gm/dL [facility] Hematocrit 28.0 (L) 40.5 - [facility] 48.5 % [facility] Comment: This result has been called to MONICA MORAN by DONALD GROSSMAN on 07 07 2017 at 1759, and has been read back. MCV 90.9 82.9 - 93.1 [facility] LABORATORY MCH 29.9 27.5 - 32.1 pg [facility] MCHC 32.9 32.0 - 35.7 gm/dL [facility] Platelets 155 145 - 357 x10(3)/[facility] LABORATORY RDWSD 46.5 (H) 36.0 - 45.0 [facility] LABORATORY RDWCV 14.1 (H) 11.4 - 13.8 % [facility]ORY MPV 9.5 7.6 - 12.9 [facility] LABORATORY nRBC % Auto 0.0 % [facility] nRBC Abs Auto 0.000 0.000 - 0.000 x10(3)/[facility] LABORATORY Specimen Anatomical Collection Method Collection Time Receive d Time (Source) Location / / Volume Laterality Blood specimen 07/07/2017 5:30 PM 017 5:34 (specimen) EST PM EST Resulting Agency Comment Spec In Lab Yifan Perez MD HEMATOLOGY ORDERABLES Performing Organization Address City/State/[place] [address] Prepare Platelets, Apheresis (07/07/2017 5:00 PM EST) P athologist Signature Dispensed? Yes [facility] Specimen Anatomical Collection Method Collection Time Receive d Time (Source) Location / / Volume Laterality Blood specimen 07/07/2017 5:00 PM 017 4:58 (specimen) EST PM EST Daphne Shahid MD BLOOD BANK ORDERABLES Performing Organization Address City/State/[place] [address] Platelet count (07/07/2017 4:55 PM EST) athologist Signature Platelets 177 145 - 357 [facility] x10(3)/[facility] LABORATORY Plat Immature 1.5 0.0 - 7.4 [place] DAVIS % % [facility] Comment: Limitation of the Immature Platelet Frac tion (IPF)-May be less reliable when the platelet count is less than 51a460/u L due to statistical imprecision. The IPF [...] in a decreased state of production. References: [employer] The Clinical Value of the Immature Platelet Fraction (IPF) in Cell Recovery Document Number 10-1143 12/2010 [employer] The Role of the Imm ature [...] Organization Address City/State/[place] [address] [facility] [address] (ABNORMAL) Hemoglobin and Hematocrit, blood (07/07/2017 4:55 PM EST) athologist Signature Hemoglobin 9.1 (L) 13.7 - 16.5 [facility] gm/dL [facility] Comment: This result has been called to MALKA MORAN by DONALD GROSSMAN on 07 07 2017 at 1734, and has been read back. Hematocrit 26.6 (L) 40.5 - 48.5 % [facility] Comment: This result has been [...] Organization Address City/State/[place] [address] (ABNORMAL) BLOOD GAS 2 ARTERIAL (07/07/2017 4:38 PM EST) Analysis Performed At Patho logist Time Signature pH Art 7.37 7.35 - [facility] 7.45 [facility] pCO2 Art 44 35 - 45 [facility] mmHg [facility] pO2 Art 322 (H) 85 - 104 [facility] LABORATORY HCO3 Art 24.9 20.0 - [facility] 26.0 [facility] mmol/L [facility] BE Art -0.4 -3.0 - 3.0 [facility] mmol/L [facility] Hgb Blood Gas 10.1 (L) 13.7 - [facility] 16.5 gm/dL [facility] O2HB Art 98.7 (H) 94.0 - [facility] 97.0 % [facility] COHB Art 0.1 % [facility] Comment: Nonsmokers: 0.5-1.5% COHB Smokers: Variable, but usually less than 10% Toxic: 20-30% COHB Lethal: Greater than 60% COHB METHB Art 0.3 <=1.5 % [facility] Na Whole Blood 130 (L) 135 - 145 mmol/L [facility] K Whole Blood 5.7 (H) 3.5 - 5.0 mmol/L [facility] Comment: Please note: Patients with WBC >100,000 may have falsely elevated Potassium levels. Contact the Clinical Chemistry L aboratory if there are any questions. ICa Whole Blood 0.89 (Critical) 1.15 - 1.33 mmol/L [facility] Comment: Noted by gyroscopic instrument tester. Note: ??Total bilirubin higher than 20 m g/dL may lead to falsely low ionized calcium. CL Whole Blood 101 98 - 107 mmol/L [facility] Gluc Whole Bld 295 (H) 65 - 199 mg/dL [facility] Comment: Diabetes: >=200 mg/dL plus symp toms. Lactate WB 1.7 0.5 - 2.2 mmol/L [facility] Specimen Anatomical Collection Method Collection Time Receive d Time (Source) Location / / Volume Laterality Blood specimen 07/07/2017 4:38 PM 017 4:38 (specimen) EST PM EST Daphne Shahid MD CHEMISTRY ORDERABLES Performing Organization Address City/State/[place] [address] (ABNORMAL) BLOOD GAS 2 VENOUS (07/07/2017 4:06 PM EST) Analysis Performed At Patho logist Time Signature pH Cody 7.31 (L) 7.32 - [facility] 7.42 [facility] pCO2 Cody 47 41 - 51 [facility] LABORATORY pO2 Cody 53 (H) 25 - 40 [facility] LABORATORY HCO3 Cody 22.7 mmol/L [facility] BE Cody -3.7 mmol/L [facility] Hgb Blood Gas 10.2 (L) 13.7 - [facility] 16.5 gm/dL [facility] O2HB Cody 81.0 % [facility] COHB Cody 1.0 % [facility] Comment: Nonsmokers: 0.5-1.5% COHB Smokers: Variable, but usually less than 10% Toxic: 20-30% COHB Lethal: Greater than 60% COHB METHB Cody 0.3 <=1.5 % [facility] Na Whole Blood 132 (L) 135 - 145 mmol/L [facility] K Whole Blood 5.3 (H) 3.5 - 5.0 mmol/L [facility] Comment: Please note: Patients with WBC >100,000 may have falsely elevated Potassium levels. Contact the Clinical Chemistry L aboratory if there are any questions. ICa Whole Blood 0.90 (Critical) 1.15 - 1.33 mmol/L [facility] LABORATORY Comment: Noted by gyroscopic instrument tester. Note: ??Total bilirubin higher than 20 m g/dL may lead to falsely low ionized calcium. CL Whole Blood 100 98 - 107 mmol/L [facility] Gluc Whole Bld 231 (H) 65 - 199 mg/dL [facility] Comment: Diabetes: >=200 mg/dL plus symp toms Lactate WB 1.1 0.5 - 2.2 mmol/L [facility] BGas Source Venous [facility] Specimen Anatomical Collection Method Collection Time Receive d Time (Source) Location / / Volume Laterality Blood specimen 07/07/2017 4:06 PM 017 4:06 (specimen) EST PM EST Daphne Shahid MD CHEMISTRY ORDERABLES Performing Organization Address City/State/[place] [address] (ABNORMAL) BLOOD GAS 2 ARTERIAL (07/07/2017 4:05 PM EST) Analysis Performed At Patho logist Time Signature pH Art 7.36 7.35 - [facility] 7.45 [facility] pCO2 Art 40 35 - 45 [facility] mmHg [facility] pO2 Art 282 (H) 85 - 104 [facility] mmHg [facility] HCO3 Art 22.1 20.0 - [facility] 26.0 [facility] mmol/L [facility] BE Art -3.4 (L) -3.0 - 3.0 [facility] mmol/L [facility] Hgb Blood Gas 10.2 (L) 13.7 - [facility] 16.5 gm/dL [facility] O2HB Art 98.4 (H) 94.0 - [facility] 97.0 % [facility] COHB Art 0.3 % [facility] Comment: Nonsmokers: 0.5-1.5% COHB Smokers: Variable, but usually less than 10% Toxic: 20-30% COHB Lethal: Greater than 60% COHB METHB Art 0.3 <=1.5 % [facility] Na Whole Blood 131 (L) 135 - 145 mmol/L [facility] K Whole Blood 5.4 (H) 3.5 - 5.0 mmol/L [facility] Comment: Please note: Patients with WBC >100,000 may have falsely elevated Potassium levels. Contact the Clinical Chemistry L aboratory if there are any questions. ICa Whole Blood 0.86 (Critical) 1.15 - 1.33 mmol/L [facility] Comment: Noted by gyroscopic instrument tester. Note: ??Total bilirubin higher than 20 m g/dL may lead to falsely low ionized calcium. CL Whole Blood 101 98 - 107 mmol/L [facility] Gluc Whole Bld 260 (H) 65 - 199 mg/dL [facility] Comment: Diabetes: >=200 mg/dL plus symp toms. Lactate WB 1.4 0.5 - 2.2 mmol/L [facility] Specimen Anatomical Collection Method Collection Time Receive d Time (Source) Location / / Volume Laterality Blood specimen 07/07/2017 4:05 PM 017 4:05 (specimen) EST PM EST Daphne Shahid MD CHEMISTRY ORDERABLES Performing Organization Address City/State/[place] [address] (ABNORMAL) BLOOD GAS 2 ARTERIAL (07/07/2017 2:29 PM EST) Analysis Performed At Patho logist Time Signature pH Art 7.43 7.35 - [facility] 7.45 [facility] pCO2 Art 36 35 - 45 [facility] LABORATORY pO2 Art 221 (H) 85 - 104 [facility] LABORATORY HCO3 Art 23.2 20.0 - [facility] 26.0 [facility] mmol/L HOSPITAL LABORATORY BE Art -1.2 -3.0 - 3.0 [facility] mmol/L [facility] Hgb Blood Gas 13.9 13.7 - [facility] 16.5 gm/dL [facility] O2HB Art 97.8 (H) 94.0 - [facility] 97.0 % [facility] COHB Art 1.1 % [facility] Comment: Nonsmokers: 0.5-1.5% COHB Smokers: Variable, but usually less than 10% Toxic: 20-30% COHB Lethal: Greater than 60% COHB METHB Art 0.3 <=1.5 % [facility] Na Whole Blood 139 135 - 145 mmol/L [facility] K Whole Blood 4.0 3.5 - 5.0 mmol/L [facility] Comment: Please note: Patients with WBC >100,000 may have falsely elevated Potassium levels. Contact the Clinical Chemistry L aboratory if there are any questions. ICa Whole Blood 1.11 (L) 1.15 - 1.33 mmol/L [facility] Comment: Note: ??Total bilirubin higher than 20 m g/dL may lead to falsely low ionized calcium. CL Whole Blood 104 98 - 107 mmol/L [facility] Gluc Whole Bld 184 65 - 199 mg/dL [facility] Comment: Diabetes: >=200 mg/dL plus symp toms. Lactate WB 1.5 0.5 - 2.2 mmol/L [facility] Specimen Anatomical Collection Method Collection Time Receive d Time (Source) Location / / Volume Laterality Blood specimen 07/07/2017 2:29 PM 017 2:29 (specimen) EST PM EST Daphne Shahid MD CHEMISTRY ORDERABLES Performing Organization Address City/State/[place] [address] Prepare Coag Factors (Non-Hemophilia) (07/07/2017 1:25 PM EST) P athologist Signature Dispensed? Yes [facility] Specimen Anatomical Collection Method Collection Time Receive d Time (Source) Location / / Volume Laterality Blood specimen 07/07/2017 1:25 PM 017 1:21 (specimen) EST PM EST Daphne Shahid MD BLOOD BANK ORDERABLES Performing Organization Address City/State/ZIP Code Phon e Number [address] Prepare RBC (07/07/2017 1:10 PM EST) P athologist Signature Dispensed? Yes [facility] Specimen Anatomical Collection Method Collection Time Receive d Time (Source) Location / / Volume Laterality Blood specimen 07/07/2017 1:10 PM 017 1:05 (specimen) EST PM EST Daphne Shahid MD BLOOD BANK ORDERABLES Performing Organization Address City/[facility]/ZIP Code Phon e Number [address] POCT Glucose (07/07/2017 11:56 AM EST) P athologist Signature POC Glucose 188 65 - 199 [facility] mg[facility] Comment: Supplemental ranges: <140 [...] [facility]/ZIP [place] [address] POCT Glucose (07/07/2017 11:05 AM EST) P athologist Signature POC Glucose 168 65 - 199 [facility] SU mg/dL [facility] Comment: Supplemental ranges: <140 mg/dL before meals <180 mg/dL all other times of the day Specimen Anatomical Collection Method Collection Time Receive d Time (Source) Location / / Volume Laterality Blood specimen 07/07/2017 11:05 7 (specimen) AM EST 11:05 AM EST Daphne Shahid MD POINT OF CARE TEST ORDERABLE S Performing Organization Address City/State/ZIP [place] [address] POCT Glucose (07/07/2017 10:02 AM EST) athologist Signature POC Glucose 191 65 - 199 [place] mg/dL [facility] Comment: Supplemental ranges: <140 mg/dL before meals <180 mg/dL all other times of the day Specimen Anatomical Collection Method Collection Time Receive d Time (Source) Location / / Volume Laterality Blood specimen 07/07/2017 10:02 7 (specimen) AM EST 10:02 AM EST Daphne Shahid MD POINT OF CARE TEST ORDERABLE S Performing Organization Address City/State/ZIP [place] [address] POCT Glucose (07/07/2017 7:53 AM EST) athologist Signature POC Glucose 178 65 - 199 [facility] SU mg/dL [facility] Comment: Supplemental ranges: <140 mg/dL before meals <180 mg/dL all other times of the day Specimen Anatomical Collection Method Collection Time Receive d Time (Source) Location / / Volume Laterality Blood specimen 07/07/2017 7:53 AM 017 7:53 (specimen) EST AM EST Daphne Shahid MD POINT OF CARE TEST ORDERABLE S Performing Organization Address City/State/ZIP [place] [address] POCT Glucose (07/07/2017 7:03 AM EST) athologist Signature POC Glucose 188 65 - 199 [place] [facility] mg/dL [facility] Comment: Supplemental ranges: <140 mg/dL before meals <180 mg/dL all other times of the day Specimen Anatomical Collection Method Collection Time Receive d Time (Source) Location / / Volume Laterality Blood specimen 07/07/2017 7:03 AM 017 7:03 (specimen) EST AM EST Daphne Shahid MD POINT OF CARE TEST ORDERABLE S Performing Organization Address City/State/ZIP [place] [address] (ABNORMAL) POCT Glucose (07/07/2017 6:17 AM EST) athologist Signature POC Glucose 207 (H) 65 - 199 [facility] mg/dL [facility] Comment: Supplemental ranges: <140 mg/dL before meals <180 mg/dL all other times of the day Specimen Anatomical Collection Method Collection Time Receive d Time (Source) Location / / Volume Laterality Blood specimen 07/07/2017 6:17 AM 017 6:17 (specimen) EST AM EST Daphne Shahid MD POINT OF CARE TEST ORDERABLE S Performing Organization Address City/State/[place] [address] [facility] [address] Drive Differential, Automated (07/07/2017 5:15 AM EST) athologist Signature Neutrophils % 69.7 % [facility] Neutr Abs (ANC) 5.32 1.70 - [facility] 6.10 [facility] x10(3)/[facility] LABORATORY Lymphocytes % 16.3 % [facility] Lymphocytes Abs 1.2 0.9 - 3.2 [facility] x10(3)/[facility] LABORATORY Monocytes % 10.5 % [facility] Monocyte Abs 0.8 0.3 - 0.9 [facility] x10(3)/[facility] LABORATORY Eosinophils % 2.5 % [facility] Eosinophils Abs 0.2 0.0 - 0.4 [facility] x10(3)/[facility] LABORATORY Basophils % 0.7 % [facility] Basophils Abs 0.0 0.0 - 0.1 [facility] x10(3)/[facility] LABORATORY Immature Gran % 0.30 % [...] Melisa Gran Abs 0.02 0.00 - 0.04 x10(3)/[facility] LABORATORY Specimen Anatomical Collection Method Collection Time Receive d Time (Source) Location / / Volume Laterality Blood specimen 07/07/2017 5:15 AM 017 5:34 (specimen) EST AM EST Resulting Agency Comment Spec In Lab Daphne Shahid MD HEMATOLOGY ORDERABLES Performing Organization Address City/State/[place] [address] (ABNORMAL) Hemogram (07/07/2017 5:15 AM EST) Analysis Performed At Patho logist Time Signature WBC 7.6 4.0 - 9.5 [facility] x10(3)/[facility] LABORATORY RBC 4.82 4.58 - [facility] 5.54 [facility] x10(6)/[facility] LABORATORY Hemoglobin 14.4 13.7 - [facility] 16.[facility] gm/dL [facility] Hematocrit 42.1 40.5 - [facility] 48.5 % [facility] MCV 87.3 82.9 - [facility] 93.1 [facility] LABORATORY MCH 29.9 27.5 - [facility] 32.1 pg [facility] MCHC 34.2 32.0 - [facility] 35.7 gm/dL [facility] Platelets 188 145 - 357 [facility] x10(3)/[facility] RDWSD 45.1 (H) 36.0 - [facility] 45.0 [facility] LABORATORY RDWCV 14.3 (H) 11.4 - [facility] SU 13.8 % [facility] MPV 9.4 7.6 - 12.9 [facility] LABORATORY nRBC % Auto 0.0 % [facility] nRBC Abs Auto 0.000 0.000 - [facility] 0.000 [facility] x10(3)/[facility] LABORATORY Specimen Anatomical Collection Method Collection Time Receive d Time (Source) Location / / Volume Laterality Blood specimen 07/07/2017 5:15 AM 017 5:34 (specimen) EST AM EST Resulting Agency Comment Spec In Lab Daphne Shahid MD HEMATOLOGY ORDERABLES Performing Organization Address City/[facility]/ZIP [place] [address] (ABNORMAL) APTT (07/07/2017 5:15 AM EST) athologist Signature PTT 69 (H) 25 - 35 sec [facility] Comment: The recommended therapeutic range for fu ll dose, unfractionated heparin at [facility] is 80 ? 114 [...] Shahid MD HEMATOLOGY ORDERABLES Performing Organization Address City/[facility]/ZIP [place] [address] Magnesium (07/07/2017 5:15 AM EST) athologist Signature Magnesium 0.94 0.69 - 1.07 [facility] mmol/L [facility] Specimen Anatomical Collection Method Collection Time Receive d Time (Source) Location / / Volume Laterality Blood specimen 07/07/2017 5:15 AM 017 5:34 (specimen) EST AM EST Resulting Agency Comment Spec In Lab Daphne Shahid MD CHEMISTRY ORDERABLES Performing Organization Address City/[facility]/ZIP [place] [address] (ABNORMAL) Basic Metabolic Panel (non-fasting) (07/07/2017 5:15 AM EST) P athologist Signature Glucose Lvl 203 (H) 65 - 199 [facility] mg/dL [facility] Comment: Diabetes: >=200 mg/dL plus symp toms BUN 15 10 - 20 mg/dL [facility]ORY Creatinine 1.09 0.80 - 1.50 mg/dL [facility]ORY Sodium 142 135 - 145 mmol/L [facility] Potassium 4.4 3.5 - 5.0 mmol/L [facility] Comment: Please note: ??Patients with WBC >100,00 0 may have falsely elevated Potassium levels. ??For accurate Potassium quantif ication in these patients send serum separator tube (gold top) for subsequent determinations. ??Contact the Clinical Chemistry Laboratory if there are any qu estions. Chloride 102 98 - 107 mmol/L [facility] CO2 26 22 - 31 mmol/L [facility] Anion Gap 14 5 - 15 mmol/L [facility]ORY Calcium 8.6 8.5 - 10.5 mg/dL [facility] Estimated GFR >60 >=60 [facility] Comment: The reported eGFR should be multiplied b y 1.2 for patients. The MDRD is not an appropriate measure o f renal function for patients with body mass extremes or in patients with acute kidney failure. http://[employer]/DHnkdep http://[employer]/DHMCnkf Specimen Anatomical Collection Method Collection Time Receive d Time (Source) Location / / Volume Laterality Blood specimen 07/07/2017 5:15 AM 017 5:34 (specimen) EST AM EST Resulting Agency Comment Spec In Lab Daphne Shahid MD CHEMISTRY ORDERABLES Performing Organization Address City/State/[place] [address] (ABNORMAL) Cardiac Enzymes (LEB/CGP) (07/07/2017 5:15 AM EST) P athologist Signature Troponin-T 2.07 (H) 0.00 - [facility] 0.00 ng/mL [facility] Comment: The 99th percentile for Troponin T is le ss than 0.01 ng/mL, any detectable cTnT concentration using this assay should be considered elevated. According to the third universal definit ion of myocardial infarction the following criteria with a clinical prese ntation consistent with acute myocardial ischemia meets the diagnosis for a myocardial infarction (MA). Detection of a rise and/or fall of [...] additional sample may be indicated. Reference: Third [place] Definition of Myocardial Infarction. Journal of the [place] [employer] 2012;60:1581-98 CK, Total 88 0 - 200 unit/L [facility] Specimen Anatomical Collection Method Collection Time Receive d Time (Source) Location / / Volume Laterality Blood specimen 07/07/2017 5:15 AM 017 5:34 (specimen) EST AM EST Resulting Agency Comment Spec In Lab Daphne Shahid MD CHEMISTRY ORDERABLES Performing Organization Address City/[facility]/ZIP Code Phon e Number [address] POCT Glucose (07/07/2017 5:01 AM EST) athologist Signature POC Glucose 182 65 - 199 [facility] mg/dL [facility] Comment: Supplemental ranges: <140 [...] [facility] [place] [address] POCT Glucose (07/07/2017 4:08 AM EST) athologist Signature POC Glucose 199 65 - 199 [facility] mg/dL [facility] Comment: Supplemental ranges: <140 mg/dL before meals <180 mg/dL all other times of the day Specimen Anatomical Collection Method Collection Time Receive d Time (Source) Location / / Volume Laterality Blood specimen 07/07/2017 4:08 AM 017 4:08 (specimen) EST AM EST Daphne Shahid MD POINT OF CARE TEST ORDERABLE S Performing Organization Address City/State/ZIP [place] [address] POCT Glucose (07/07/2017 3:03 AM EST) athologist Signature POC Glucose 188 65 - 199 [facility] mg/dL [facility] Comment: Supplemental ranges: <140 mg/dL before meals <180 mg/dL all other times of the day Specimen Anatomical Collection Method Collection Time Receive d Time (Source) Location / / Volume Laterality Blood specimen 07/07/2017 3:03 AM 017 3:03 (specimen) EST AM EST Daphne Shahid MD POINT OF CARE TEST ORDERABLE S Performing Organization Address City/State/ZIP [place] [address] (ABNORMAL) POCT Glucose (07/07/2017 2:08 AM EST) athologist Signature POC Glucose 200 (H) 65 - 199 [facility] Comment: Supplemental ranges: <140 mg/dL before meals <180 mg/dL all other times of the day Specimen Anatomical Collection Method Collection Time Receive d Time (Source) Location / / Volume Laterality Blood specimen 07/07/2017 2:08 AM 017 2:08 (specimen) EST AM EST Daphne Shahid MD POINT OF CARE TEST ORDERABLE S Performing Organization Address City/State/ZIP Code Phon e Number [address] (ABNORMAL) POCT Glucose (07/07/2017 1:31 AM EST) athologist Signature POC Glucose 209 (H) 65 - 199 [place] mg/dL [facility] Comment: Supplemental ranges: <140 mg/dL before meals <180 mg/dL all other times of the day Specimen Anatomical Collection Method Collection Time Receive d Time (Source) Location / / Volume Laterality Blood specimen 07/07/2017 1:31 AM 017 1:31 (specimen) EST AM EST Daphen Shahid MD POINT OF CARE TEST ORDERABLE S Performing Organization Address City/State/[place] [address] XR Chest PA or [...] Signature POC Glucose 161 65 - 199 [facility] mg/dL [facility] Comment: Supplemental ranges: <140 mg/dL before meals <180 mg/dL all other times of the day Specimen Anatomical Collection Method Collection Time Receive d Time (Source) Location / / Volume Laterality Blood specimen 07/07/2017 12:07 7 (specimen) AM EST 12:07 AM EST Daphne Shahid MD POINT OF CARE TEST ORDERABLE S Performing Organization Address City/State/ZIP [place] [address] (ABNORMAL) APTT (07/07/2017 12:00 AM EST) athologist Signature PTT 103 (H) 25 - 35 sec [facility] Comment: The recommended therapeutic range for fu ll dose, unfractionated heparin at [facility] is 80 ? 114 [...] Shahid MD HEMATOLOGY ORDERABLES Performing Organization Address City/[facility]/ZIP [place] [address] POCT Glucose (07/06/2017 9:55 PM EST) athologist Signature POC Glucose 109 65 - 199 [facility] mg/dL [facility] Comment: Supplemental ranges: <140 [...] [facility]/ZIP [place] [address] POCT Glucose (07/06/2017 9:04 PM EST) athologist Signature POC Glucose 120 65 - 199 [facility] mg/dL [facility] Comment: Supplemental ranges: <140 [...] [facility]/ZIP [place] [address] POCT Glucose (07/06/2017 7:45 PM EST) athologist Signature POC Glucose 158 65 - 199 [facility] mg/dL [facility] Comment: Supplemental ranges: <140 [...] [facility]/ZIP [place] [address] Potassium (07/06/2017 7:40 PM EST) athologist Signature Potassium 3.9 3.5 - 5.0 [facility] mmol/L [facility] Comment: Please note: ??Patients [...] Shahid MD CHEMISTRY ORDERABLES Performing Organization Address City/[facility]/ZIP [place] [address] (ABNORMAL) Cardiac Enzymes (LEB/CGP) (07/06/2017 7:40 PM EST) athologist Signature Troponin-T 2.27 (H) 0.00 - [facility] 0.00 ng/mL [facility] Comment: The 99th percentile for Troponin T is le ss than 0.01 ng/mL, any detectable cTnT concentration using this assay should be considered elevated. According to the third universal definit ion of myocardial infarction the following criteria with a clinical prese ntation consistent with acute myocardial ischemia meets the diagnosis for a myocardial infarction (MA). Detection of a rise and/or fall of [...] additional sample may be indicated. Reference: Third [place] Definition of Myocardial Infarction. Journal of the [place] [employer] 2012;60:1581-98 CK, Total 93 0 - 200 unit/L [facility] Specimen Anatomical Collection Method Collection Time Receive d Time (Source) Location / / Volume Laterality Blood specimen 07/06/2017 7:40 PM 017 7:52 (specimen) EST PM EST Resulting Agency Comment Spec In Lab Daphne Shahid MD CHEMISTRY ORDERABLES Performing Organization Address City/State/[place] [address] (ABNORMAL) POCT Glucose (07/06/2017 7:13 PM EST) athologist Signature POC Glucose 200 (H) 65 - 199 [facility] mg/dL [facility] Comment: Supplemental ranges: <140 [...] [facility]/ZIP [place] [address] (ABNORMAL) APTT (07/06/2017 6:15 PM EST) athologist Signature PTT 94 (H) 25 - 35 sec [facility] Comment: The recommended therapeutic range for fu ll dose, unfractionated heparin at [facility] is 80 ? 114 [...] Shahid MD HEMATOLOGY ORDERABLES Performing Organization Address City/[facility]/ZIP [place] [address] (ABNORMAL) POCT Glucose (07/06/2017 6:03 PM EST) athologist Signature POC Glucose 236 (H) 65 - 199 [facility] mg/dL [facility] Comment: Supplemental ranges: <140 [...] [facility]/ZIP [place] [address] (ABNORMAL) POCT Glucose (07/06/2017 5:01 PM EST) athologist Signature POC Glucose 235 (H) 65 - 199 [place] mg/dL [facility] Comment: Supplemental ranges: <140 mg/dL before meals <180 mg/dL all other times of the day Specimen Anatomical Collection Method Collection Time Receive d Time (Source) Location / / Volume Laterality Blood specimen 07/06/2017 5:01 PM 017 5:01 (specimen) EST PM EST Daphne Shahid MD POINT OF CARE TEST ORDERABLE S Performing Organization Address City/State/ZIP [place] [address] (ABNORMAL) POCT Glucose (07/06/2017 4:06 PM EST) P athologist Signature POC Glucose 202 (H) 65 - 199 [place] mg/dL [facility] Comment: Supplemental ranges: <140 [...] [facility]ZIP [place] [address] POCT Glucose (07/06/2017 2:59 PM EST) P athologist Signature POC Glucose 178 65 - 199 [place] mg/dL [facility] Comment: Supplemental ranges: <140 mg/dL before meals <180 mg/dL all other times of the day Specimen Anatomical Collection Method Collection Time Receive d Time (Source) Location / / Volume Laterality Blood specimen 07/06/2017 2:59 PM 017 2:59 (specimen) EST PM EST Daphne Shahid MD POINT OF CARE TEST ORDERABLE S Performing Organization Address City/State/ZIP [place] [address] (ABNORMAL) Cardiac Enzymes (LEB/CGP) (07/06/2017 2:10 PM EST) P athologist Signature Troponin-T 2.34 (H) 0.00 - [facility] 0.00 ng/mL [facility] Comment: The 99th percentile for Troponin T is le ss than 0.01 ng/mL, any detectable cTnT concentration using this assay should be considered elevated. According to the third universal definit ion of myocardial infarction the following criteria with a clinical prese ntation consistent with acute myocardial ischemia meets the diagnosis for a myocardial infarction (MA). Detection of a rise and/or fall of [...] additional sample may be indicated. Reference: Third [place] Definition of Myocardial Infarction. Journal of the [place] College of Cardiology 2012;60:1581-98 CK, Total 101 0 - 200 unit/L [facility] Specimen Anatomical Collection Method Collection Time Receive d Time (Source) Location / / Volume Laterality Blood specimen 07/06/2017 2:10 PM 017 2:26 (specimen) EST PM EST Resulting Agency Comment Spec In Lab Daphne Shahid MD CHEMISTRY ORDERABLES Performing Organization Address City/State/[place] [address] POCT Glucose (07/06/2017 2:08 PM EST) P athologist Signature POC Glucose 192 65 - 199 [facility] mg/dL [facility] Comment: Supplemental ranges: <140 mg/dL before meals <180 mg/dL all other times of the day Specimen Anatomical Collection Method Collection Time Receive d Time (Source) Location / / Volume Laterality Blood specimen 07/06/2017 2:08 PM 017 2:08 (specimen) EST PM EST Daphne Shahid MD POINT OF CARE TEST ORDERABLE S Performing Organization Address City/State/ZIP Code Phon e Number [address] POCT Glucose (07/06/2017 1:04 PM EST) P athologist Signature POC Glucose 162 65 - 199 [facility] Comment: Supplemental ranges: <140 [...] [facility]/ZIP [place] [address] POCT Glucose (07/06/2017 12:05 PM EST) P athologist Signature POC Glucose 196 65 - 199 [facility] mg/dL [facility] Comment: Supplemental ranges: <140 [...] [facility]/ZIP Code Phon e Number [address] EKG 12 Lead (07/06/2017 12:00 PM EST) Component Value Ref Range Test Analysis Performed Pathologis t Method Time At Signature Ventricular rate 91 BPM MUSE SYSTEM Atrial Rate 91 BPM MUSE SYSTEM P-R Interval 140 ms MUSE SYSTEM QRS Duration 94 ms MUSE SYSTEM Q-T Interval 394 ms MUSE SYSTEM QTC Calculated 484 ms MUSE SYSTEM (Bezet) Calculated P [place] 36 degrees MUSE SYSTEM Calculated R [place] -19 degrees MUSE SYSTEM Calculated T [place] 104 degrees MUSE SYSTEM INTERPRETATION Normal sinus rhythm MUSE SYSTEM 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) ST & T wave abnormality, consider lateral ischemia Abnormal ECG When compared with ECG of 05-JUL-2017 20:39, No significant change was found Confirmed by MD Luci, Taurus Braun ([id number]) on 07/06/2017 5:07:33 PM Specimen Anatomical Collection Method Collection Time Receive d Time (Source) Location / / Volume Laterality 07/06/2017 12:00 07/06/2017 5:07 PM EST PM EST Daphne Shahid MD ECG ORDERABLES Performing Organization Address City/State/ZIP Code Phon e Number MUSE SYSTEM ABORH Recheck Status (07/06/2017 12:00 PM EST) [facility] gist Method Time Signature ABORH Type Completed [facility] LABORATORY Specimen Anatomical Collection Method Collection Time Receive d Time (Source) Location / / Volume Laterality Blood specimen 07/06/2017 12:00 7 (specimen) PM EST 12:24 PM EST Resulting Agency Comment Spec In Lab Daphne Shahid MD BLOOD BANK ORDERABLES Performing Organization Address City/[facility]/ZIP [place] [address] Antibody screen (07/06/2017 12:00 PM EST) [facility] Method Time Signature Ab Screen Negative [facility] LABORATORY Expires at 07/09/2017 [facility] 235 on: [facility] Specimen Anatomical Collection Method Collection Time Receive d Time (Source) Location / / Volume Laterality Blood specimen 07/06/2017 12:00 7 (specimen) PM EST 12:24 PM EST Resulting Agency Comment Spec In Lab Daphne Shahid MD BLOOD BANK ORDERABLES Performing Organization Address City/[facility]/ZIP [place] [address] ABO/Rh Typing (07/06/2017 12:00 PM EST) P athologist Signature ABORh Type O Pos [facility] Specimen Anatomical Collection Method Collection Time Receive d Time (Source) Location / / Volume Laterality Blood specimen 07/06/2017 12:00 7 (specimen) PM EST 12:24 PM EST Resulting Agency Comment Spec In Lab Daphne Shahid MD BLOOD BANK ORDERABLES Performing Organization Address City/State/ZIP [place] [address] Prothrombin Time (07/06/2017 11:24 AM EST) athologist Signature PT 13.3 11.8 - 14.0 [facility] LABORATORY INR 1.0 0.9 - 1.1 [facility] Comment: An INR [...] Shahid MD HEMATOLOGY ORDERABLES Performing Organization Address City/[facility]/ZIP [place] [address] (ABNORMAL) APTT (07/06/2017 11:24 AM EST) athologist Signature PTT 52 (H) 25 - 35 sec [facility] Comment: The recommended therapeutic range for fu ll dose, unfractionated heparin at [facility] is 80 ? 114 [...] Shahid MD HEMATOLOGY ORDERABLES Performing Organization Address City/[facility]/ZIP [place] [address] POCT Glucose (07/06/2017 11:02 AM EST) athologist Signature POC Glucose 187 65 - 199 [place] mg/dL [facility] Comment: Supplemental ranges: <140 mg/dL before meals <180 mg/dL all other times of the day Specimen Anatomical Collection Method Collection Time Receive d Time (Source) Location / / Volume Laterality Blood specimen 07/06/2017 11:02 7 (specimen) AM EST 11:02 AM EST Daphne Shahid MD POINT OF CARE TEST ORDERABLE S Performing Organization Address City/State/ZIP [place] [address] POCT Glucose (07/06/2017 10:18 AM EST) athologist Signature POC Glucose 193 65 - 199 [place] mg/dL [facility] Comment: Supplemental ranges: <140 mg/dL before meals <180 mg/dL all other times of the day Specimen Anatomical Collection Method Collection Time Receive d Time (Source) Location / / Volume Laterality Blood specimen 07/06/2017 10:18 7 (specimen) AM EST 10:18 AM EST Daphne Shahid MD POINT OF CARE TEST ORDERABLE S Performing Organization Address City/State/ZIP [place] [address] POCT Glucose (07/06/2017 9:25 AM EST) athologist Signature POC Glucose 182 65 - 199 [place] mg/dL [facility] Comment: Supplemental ranges: <140 mg/dL before meals <180 mg/dL all other times of the day Specimen Anatomical Collection Method Collection Time Receive d Time (Source) Location / / Volume Laterality Blood specimen 07/06/2017 9:25 AM 017 9:25 (specimen) EST AM EST Daphne Shahid MD POINT OF CARE TEST ORDERABLE S Performing Organization Address City/State/ZIP [place] [address] (ABNORMAL) Cardiac Enzymes (LEB/CGP) (07/06/2017 8:10 AM EST) athologist Signature Troponin-T 2.26 (H) 0.00 [facility] ng/mL [facility] Comment: The 99th percentile for Troponin T is le ss than 0.01 ng/mL, any detectable cTnT concentration using this assay should be considered elevated. According to the third universal definit ion of myocardial infarction the following criteria with a clinical prese ntation consistent with acute myocardial ischemia meets the diagnosis for a myocardial infarction (MA). Detection of a rise and/or fall of [...] additional sample may be indicated. Reference: Third [place] Definition of Myocardial Infarction. Journal of the [place] College of Cardiology 2012;60:1581-98 CK, Total 124 0 - 200 unit/L [facility] Specimen Anatomical Collection Method Collection Time Receive d Time (Source) Location / / Volume Laterality Blood specimen 07/06/2017 8:10 AM 017 8:23 (specimen) EST AM EST Resulting Agency Comment Spec In Lab Daphne Shahid MD CHEMISTRY ORDERABLES Performing Organization Address City/State/[place] [address] Magnesium (07/06/2017 8:10 AM EST) athologist Signature Magnesium 0.84 0.69 - 1.07 [facility] mmol/L [facility] Specimen Anatomical Collection Method Collection Time Receive d Time (Source) Location / / Volume Laterality Blood specimen 07/06/2017 8:10 AM 017 8:21 (specimen) EST AM EST Resulting Agency Comment Spec In Lab Daphne Shahid MD CHEMISTRY ORDERABLES Performing Organization Address City/State/[place] [address] (ABNORMAL) Basic Metabolic Panel (non-fasting) (07/06/2017 8:10 AM EST) P athologist Signature Glucose Lvl 199 65 - 199 [facility] mg/dL [facility] Comment: Diabetes: >=200 mg/dL plus symp toms BUN 16 10 - 20 mg/dL [facility] LABORATORY Creatinine 1.04 0.80 - 1.50 mg/dL [facility] LABOR[facility]ORY Sodium 141 135 [...] 107 mmol/L [facility] CO2 27 22 - 31 mmol/L [facility] Anion Gap 13 5 - 15 mmol/L [facility] Calcium 8.1 (L) 8.5 - 10.5 mg/dL [facility]OR[facility] Estimated GFR >60 >=60 [facility] Comment: The reported eGFR should be multiplied b y 1.2 for patients. The MDRD is not an appropriate measure o f renal function for patients with body mass extremes or in patients with acute kidney failure. http://[employer].Snapeee/DHnkdep http://[employer].Snapeee/DHnkf Specimen Anatomical Collection Method Collection Time Receive d Time (Source) Location / / Volume Laterality Blood specimen 07/06/2017 8:10 AM 017 8:21 (specimen) EST AM EST Resulting Agency Comment Spec In Lab Daphne Shahid MD CHEMISTRY ORDERABLES Performing Organization Address City/State/ZIP [place] [address] POCT Glucose (07/06/2017 7:34 AM EST) P athologist Signature POC Glucose 198 65 - 199 [facility] SU mg/dL [facility] Comment: Supplemental ranges: <140 mg/dL before meals <180 mg/dL all other times of the day Specimen Anatomical Collection Method Collection Time Receive d Time (Source) Location / / Volume Laterality Blood specimen 07/06/2017 7:34 AM 017 7:34 (specimen) EST AM EST Daphne Shahid MD POINT OF CARE TEST ORDERABLE S Performing Organization Address City/State/ZIP Code Phon e Number [address] POCT Glucose (07/06/2017 7:03 AM EST) athologist Signature POC Glucose 181 65 - 199 [facility] mg/dL [facility] Comment: Supplemental ranges: <140 mg/dL before meals <180 mg/dL all other times of the day Specimen Anatomical Collection Method Collection Time Receive d Time (Source) Location / / Volume Laterality Blood specimen 07/06/2017 7:03 AM 017 7:03 (specimen) EST AM EST Daphne Shahid MD POINT OF CARE TEST ORDERABLE S Performing Organization Address City/State/ZIP [place] [address] XR Chest PA or [...] Signature POC Glucose 172 65 - 199 [facility] mg/dL [facility] Comment: Supplemental ranges: <140 mg/dL before meals <180 mg/dL all other times of the day Specimen Anatomical Collection Method Collection Time Receive d Time (Source) Location / / Volume Laterality Blood specimen 07/06/2017 6:21 AM 017 6:21 (specimen) EST AM EST Daphne Shahid MD POINT OF CARE TEST ORDERABLE S Performing Organization Address City/State/[place] [address] POCT Glucose (07/06/2017 5:08 AM EST) athologist Signature POC Glucose 154 65 - 199 [facility] mg/dL [facility] Comment: Supplemental ranges: <140 mg/dL before meals <180 mg/dL all other times of the day Specimen Anatomical Collection Method Collection Time Receive d Time (Source) Location / / Volume Laterality Blood specimen 07/06/2017 5:08 AM 017 5:08 (specimen) EST AM EST Daphne Shahid MD POINT OF CARE TEST ORDERABLE S Performing Organization Address City/State/ZIP Code Phon e Number [address] POCT Glucose (07/06/2017 4:05 AM EST) athologist Signature POC Glucose 142 65 - 199 [facility] mg/dL [facility] Comment: Supplemental ranges: <140 mg/dL before meals <180 mg/dL all other times of the day Specimen Anatomical Collection Method Collection Time Receive d Time (Source) Location / / Volume Laterality Blood specimen 07/06/2017 4:05 AM 017 4:05 (specimen) EST AM EST Daphne Shahid MD POINT OF CARE TEST ORDERABLE S Performing Organization Address City/State/ZIP Code Phon e Number [address] POCT Glucose (07/06/2017 3:00 AM EST) athologist Signature POC Glucose 116 65 - 199 [facility] mg/dL [facility] Comment: Supplemental ranges: <140 mg/dL before meals <180 mg/dL all other times of the day Specimen Anatomical Collection Method Collection Time Receive d Time (Source) Location / / Volume Laterality Blood specimen 07/06/2017 3:00 AM 017 3:00 (specimen) EST AM EST Daphne Shahid MD POINT OF CARE TEST ORDERABLE S Performing Organization Address City/State/ZIP Code Phon e Number [address] Potassium (07/06/2017 2:20 AM EST) athologist Signature Potassium 3.9 3.5 - 5.0 [facility] mmol/L [facility] Comment: Please note: ??Patients [...] Organization Address City/State/[place] [address] Differential, Automated (07/06/2017 2:20 AM EST) athologist Signature Neutrophils % 72.9 % [facility] Neutr Abs (ANC) 5.53 1.70 - [facility] 6.10 [facility] x10(3)[facility] LABORATORY Lymphocytes % 16.4 % [facility] Lymphocytes Abs 1.2 0.9 - 3.2 [facility] x10(3)/[facility] LABORATORY Monocytes % 9.4 % [facility] Monocyte Abs 0.7 0.3 - 0.9 [facility] x10(3)/[facility] LABORATORY Eosinophils % 0.5 % [facility] Eosinophils Abs 0.0 0.0 - 0.4 [facility] x10(3)/[facility] LABORATORY Basophils % 0.4 % [facility] Basophils Abs 0.0 0.0 - 0.1 [facility] x10(3)/[facility] LABORATORY Immature Gran % 0.40 % [facility] Comment: Immature granulocytes(IG's)percentage an d absolute count will include metamyelocytes, myelocytes, and promyelo cytes. Blood smears from CBCs yielding IG's will be scanned manually for concor dance. If this scan disagrees with the automated IG or if promyelocytes are not ed, a manual differential will be performed. Melisa Gran Abs 0.03 0.00 - 0.04 x10(3)/[facility] MAR Y [facility] LABORATORY Specimen Anatomical Collection Method Collection Time Receive d Time (Source) Location / / Volume Laterality Blood specimen 07/06/2017 2:20 AM 017 2:33 (specimen) EST AM EST Resulting Agency Comment Spec In Lab Daphne Shahid MD HEMATOLOGY ORDERABLES Performing Organization Address City/State/[place] [address] (ABNORMAL) Hemogram (07/06/2017 2:20 AM EST) Analysis Performed At Patho logist Time Signature WBC 7.6 4.0 - 9.5 [facility] x10(3)/[facility] LABORATORY RBC 4.52 (L) 4.58 - [place] 5.54 [facility] x10(6)/[facility] LABORATORY Hemoglobin 13.4 (L) 13.7 - [facility] 16.5 gm/dL [facility] Hematocrit 39.7 (L) 40.5 - [facility] 48.5 % [facility] MCV 87.8 82.9 - [facility] SU 93.1 [facility] LABORATORY MCH 29.6 27.5 - [place] 32.1 pg [facility] MCHC 33.8 32.0 - [place] 35.7 gm/dL [facility] Platelets 189 145 - 357 [facility] x10(3)/[facility] LABORATORY RDWSD 45.6 (H) 36.0 - [facility] 45.0 [facility] LABORATORY RDWCV 14.3 (H) 11.4 - [facility] SU 13.8 % [facility] MPV 9.1 7.6 - 12.9 [facility] nRBC % Auto 0.0 % [facility]OR[facility] nRBC Abs Auto 0.000 0.000 - [facility] SU 0.000 [facility] x10(3)/[facility] LABORATORY Specimen Anatomical Collection Method Collection Time Receive d Time (Source) Location / / Volume Laterality Blood specimen 07/06/2017 2:20 AM 017 2:33 (specimen) EST AM EST Resulting Agency Comment Spec In Lab Daphne Shahid MD HEMATOLOGY ORDERABLES Performing Organization Address City/State/ZIP [place] [address] (ABNORMAL) APTT (07/06/2017 2:20 AM EST) athologist Signature PTT 52 (H) 25 - 35 sec [facility] Comment: The recommended therapeutic range for fu ll dose, unfractionated heparin at [facility] is 80 ? 114 [...] Shahid MD HEMATOLOGY ORDERABLES Performing Organization Address City/[facility]/ZIP [place] [address] POCT Glucose (07/06/2017 2:20 AM EST) athologist [facility] POC Glucose 115 65 - 199 [facility] mg/dL [facility] Comment: Supplemental ranges: <140 [...] [facility]/ZIP [place] [address] (ABNORMAL) Cardiac Enzymes (LEB/CGP) (07/06/2017 2:20 AM EST) athologist [facility] Troponin-T 2.13 (H) 0.00 - [facility] 0.00 ng/mL [facility] Comment: The 99th percentile for Troponin T is le ss than 0.01 ng/mL, any detectable cTnT concentration using this assay should be considered elevated. According to the third universal definit ion of myocardial infarction the following criteria with a clinical prese ntation consistent with acute myocardial ischemia meets the diagnosis for a myocardial infarction (MA). Detection of a rise and/or fall of [...] additional sample may be indicated. Reference: Third [place] Definition of Myocardial Infarction. Journal of the [place] College of Cardiology 2012;60:1581-98 CK, Total 129 0 - 200 unit/L [facility] Specimen Anatomical Collection Method Collection Time Receive d Time (Source) Location / / Volume Laterality Blood specimen 07/06/2017 2:20 AM 017 2:33 (specimen) EST AM EST Resulting Agency Comment Spec In Lab Daphne Shahid MD CHEMISTRY ORDERABLES Performing Organization Address City/State/ZIP Code Phon e Number [place] [id number] (ABNORMAL) Hemoglobin A1c (07/06/2017 2:20 AM EST) Analysis Performed At Patho logist Time Signature Hemoglobin A1C 6.8 (H) 4.3 - 5.6 [facility] LABORATORY Comment: Reference Range: 4.3 - [...] Mellitus, Diabetes Care 2013; 36: Suppl. 1, S67-35 Est Avg Gluc See note mg/dL [facility] LABORATORY Comment: Estimated Average [...] with hemoglobinopathies. Additional resources are available on [facility] ADA website. Macario HAMMOND, Ruthann J, Deysi R, et al. ??Tr anslating the A1C assay into estimated average glucose values. ??Diabetes Care 2008:31(8):4511-9103. Specimen Anatomical Collection Method Collection Time Receive d Time (Source) Location / / Volume Laterality Blood specimen 07/06/2017 2:20 AM 017 2:34 (specimen) EST AM EST Resulting Agency Comment Spec In Lab Daphne Shahid MD CHEMISTRY ORDERABLES Performing Organization Address City/State/ZIP [place] [address] (ABNORMAL) Lipid Panel (07/06/2017 2:20 AM EST) [facility] Method Time Signature Chol, Total 150 <=239 [place] mg/dL [facility] LABORATORY Triglycerides 129 <=199 [place] mg/dL [facility] LABOR[facility]ORY HDL 32 (L) >=40 [place] mg/dL [facility]OR[facility] LDL Cholesterol 92 <=190 [place] mg/dL [facility]ORY Chol/HDL Ratio 4.7 ratio [facility] Lipid See Note [place] Interpretation [facility] Comment: Lipid management should be guided by a p atient? s ASCVD risk, goals and preferences. ACC/AHA Guidelines recommend high intens ity statin if clinical ASCVD or LDL greater than or equal to 190 mg/dL. http://[employer].com/FHZ-PTP-Qbnakucmp Adults aged 40-75 with LDL 70-189 mg/dL should have their 10 year ASCVD risk estimated with the ACC/AHA ASCVD risk es timator http://tools.acc.org/LUASF-Yqfi-Dpaeodal r/ Statin should be discussed if risk [...] Address City/State/ZIP [place] [address] POCT Glucose (07/06/2017 1:09 AM EST) P athologist Signature POC Glucose 121 65 - 199 [facility] mg/dL [facility] Comment: Supplemental ranges: <140 mg/dL before meals <180 mg/dL all other times of the day Specimen Anatomical Collection Method Collection Time Receive d Time (Source) Location / / Volume Laterality Blood specimen 07/06/2017 1:09 AM 017 1:09 (specimen) EST AM EST Daphne Shahid MD POINT OF CARE TEST ORDERABLE S Performing Organization Address City/State/ZIP [place] [address] POCT Glucose (07/06/2017 12:06 AM EST) P athologist Signature POC Glucose 147 65 - 199 [facility] SU mg/dL [facility] Comment: Supplemental ranges: <140 mg/dL before meals <180 mg/dL all other times of the day Specimen Anatomical Collection Method Collection Time Receive d Time (Source) Location / / Volume Laterality Blood specimen 07/06/2017 12:06 7 (specimen) AM EST 12:06 AM EST Daphne Shahid MD POINT OF CARE TEST ORDERABLE S Performing Organization Address City/State/ZIP [place] [address] (ABNORMAL) POCT Glucose (07/05/2017 10:56 PM EST) P athologist Signature POC Glucose 200 (H) 65 - 199 [facility] Comment: Supplemental ranges: <140 mg/dL before meals <180 mg/dL all other times of the day Specimen Anatomical Collection Method Collection Time Receive d Time (Source) Location / / Volume Laterality Blood specimen 07/05/2017 10:56 7 (specimen) PM EST 10:56 PM EST Daphne Shahid MD POINT OF CARE TEST ORDERABLE S Performing Organization Address City/State/ZIP [place] [address] (ABNORMAL) POCT Glucose (07/05/2017 10:05 PM EST) P athologist Signature POC Glucose 225 (H) 65 - 199 [place] mg/dL [facility] Comment: Supplemental ranges: <140 mg/dL before meals <180 mg/dL all other times of the day Specimen Anatomical Collection Method Collection Time Receive d Time (Source) Location / / Volume Laterality Blood specimen 07/05/2017 10:05 7 (specimen) PM EST 10:05 PM EST Daphne Shahid MD POINT OF CARE TEST ORDERABLE S Performing Organization Address City/State/ZIP [place] [address] (ABNORMAL) POCT Glucose (07/05/2017 9:02 PM EST) P athologist Signature POC Glucose 301 (H) 65 - 199 [facility]dL [facility] Comment: Supplemental ranges: <140 mg/dL before meals <180 mg/dL all other times of the day Specimen Anatomical Collection Method Collection Time Receive d Time (Source) Location / / Volume Laterality Blood specimen 07/05/2017 9:02 PM 017 9:02 (specimen) EST PM EST Daphne Shahid MD POINT OF CARE TEST ORDERABLE S Performing Organization Address City/State/ZIP Code Phon e Number [address] XR Chest PA or [...] 474 ms MUSE SYSTEM (Bezet) Calculated P [place] 50 degrees MUSE SYSTEM Calculated R [place] -28 degrees MUSE SYSTEM Calculated T [place] 90 degrees MUSE SYSTEM INTERPRETATION Sinus tachycardia [...] Method Time Signature Neutrophils % 88.4 % [facility] LABORATORY Neutr Abs (ANC) 9.08 (H) 1.70 - [facility] 6.10 [facility] x10(3)/[facility] L LABORATORY Lymphocytes % 7.0 % [facility] LABORATORY Lymphocytes Abs 0.7 (L) 0.9 - 3.2 [facility] x10(3)/[facility] LABORATORY Monocytes % 3.7 % [facility] LABORATORY Monocyte Abs 0.4 0.3 - 0.9 [facility] x10(3)/[facility] LABORATORY Eosinophils % 0.1 % [facility] LABORATORY Eosinophils Abs 0.0 0.0 - 0.4 [facility] x10(3)/[facility] LABORATORY Basophils % 0.2 % [facility] LABORATORY Basophils Abs 0.0 0.0 - 0.1 [facility] x10(3)/[facility] LABORATORY Immature Gran % 0.60 % [facility] [...] Abs 0.06 (H) 0.00 - 0.04 x10(3)/[facility] LABORATORY Specimen Anatomical Collection Method Collection Time Receive d Time (Source) Location / / Volume Laterality Blood specimen 07/05/2017 8:20 PM 017 8:27 (specimen) EST PM EST Resulting Agency Comment Spec In Lab Daphne Shahid MD HEMATOLOGY ORDERABLES Performing Organization Address City/State/[place] [address] (ABNORMAL) Hemogram (07/05/2017 8:20 PM EST) Analysis Performed At Patho logist Time Signature WBC 10.3 (H) 4.0 - 9.5 [facility] x10(3)/[facility] LABORATORY RBC 4.64 4.58 - [place] 5.54 [facility] x10(6)/[facility] LABORATORY Hemoglobin 14.1 13.7 - [facility] SU 16.5 gm/dL [facility] LABOR[facility]ORY Hematocrit 40.8 40.5 - [place] 48.5 % [facility] MCV 87.9 82.9 - [place] 93.1 fL [facility] MCH 30.4 27.5 - [place] 32.1 pg [facility] MCHC 34.6 32.0 - [place] 35.7 gm/dL [facility] Platelets 204 145 - 357 [facility] x10(3)/[facility] LABORATORY RDWSD 46.1 (H) 36.0 - [place] 45.0 [facility] LABORATORY RDWCV 14.5 (H) 11.4 - [facility] 13.8 % [facility] LABORATORY MPV 9.7 7.6 - 12.9 [facility] LABORATORY nRBC % Auto 0.0 % [facility] LABORATORY nRBC Abs Auto 0.000 0.000 - [facility] 0.000 [facility] x10(3)/[facility] LABORATORY Specimen Anatomical Collection Method Collection Time Receive d Time (Source) Location / / Volume Laterality Blood specimen 07/05/2017 8:20 PM 017 8:27 (specimen) EST PM EST Resulting Agency Comment Spec In Lab Daphne Shahid MD HEMATOLOGY ORDERABLES Performing Organization Address City/[facility]/ZIP Code Phon e Number [address] APTT (07/05/2017 8:20 PM EST) athologist Signature PTT 32 25 - 35 sec [facility] LABORATORY Comment: The recommended therapeutic range for fu ll dose, unfractionated heparin at [facility] is 80 ? 114 [...] Shahid MD HEMATOLOGY ORDERABLES Performing Organization Address City/[facility]/ZIP [place] [address] (ABNORMAL) Cardiac Enzymes (LEB/CGP) (07/05/2017 8:20 PM EST) athologist Signature Troponin-T 2.11 (H) 0.00 - [facility] 0.00 ng/mL [facility] Comment: The 99th percentile for Troponin T is le ss than 0.01 ng/mL, any detectable cTnT concentration using this assay should be considered elevated. According to the third universal definit ion of myocardial infarction the following criteria with a clinical prese ntation consistent with acute myocardial ischemia meets the diagnosis for a myocardial infarction (MA). Detection of a rise and/or fall of [...] additional sample may be indicated. Reference: Third [place] Definition of Myocardial Infarction. Journal of the [place] College [employer]iology 2012;60:1581-98 CK, Total 149 0 - 200 unit/L [facility] LABORATORY Specimen Anatomical Collection Method Collection Time Receive d Time (Source) Location / / Volume Laterality Blood specimen 07/05/2017 8:20 PM 017 8:27 (specimen) EST PM EST Resulting Agency Comment Spec In Lab Daphne Shahid MD CHEMISTRY ORDERABLES Performing Organization Address City/[facility]/ZIP [place] [address] (ABNORMAL) Magnesium (07/05/2017 8:20 PM EST) P athologist Signature Magnesium 0.68 (L) 0.69 - 1.07 [facility] mmol/L [facility]OR[facility] Specimen Anatomical Collection Method Collection Time Receive d Time (Source) Location / / Volume Laterality Blood specimen 07/05/2017 8:20 PM 017 8:27 (specimen) EST PM EST Resulting Agency Comment Spec In Lab Daphne Shahid MD CHEMISTRY ORDERABLES Performing Organization Address City/[facility]/ZIP [place] [address] (ABNORMAL) Basic Metabolic Panel (non-fasting) (07/05/2017 8:20 PM EST) athologist Signature Glucose Lvl 321 (H) 65 - 199 [facility] mg/dL [facility] Comment: Diabetes: >=200 mg/dL plus symp toms BUN 20 10 - 20 mg/dL [facility] LABORATORY Creatinine 1.12 0.80 - 1.50 mg/dL [facility] LABORATORY Sodium 139 135 - 145 mmol/L [facility] LABORATORY Potassium 3.8 3.5 - 5.0 mmol/L [facility] Comment: Please note: ??Patients with WBC >100,00 0 may have falsely elevated Potassium levels. ??For accurate Potassium quantif ication in these patients send serum separator tube (gold top) for subsequent determinations. ??Contact the Clinical Chemistry Laboratory if there are any qu estions. Chloride 98 98 - 107 mmol/L [facility] CO2 27 22 - 31 mmol/L [facility] LABOR[facility] Anion Gap 14 5 - 15 mmol/L [facility] LABORATORY Calcium 8.1 (L) 8.5 - 10.5 mg/dL [facility] LABORATORY Estimated GFR >60 >=60 [facility] LABORATORY Comment: The reported eGFR should be multiplied b y 1.2 for patients. The MDRD is not an appropriate measure o f renal function for patients with body mass extremes or in patients with acute kidney failure. http://[employer].Snapeee/DHnkdep http://[employer]/DHMCnkf Specimen Anatomical Collection Method Collection Time Receive d Time (Source) Location / / Volume Laterality Blood specimen 07/05/2017 8:20 PM 017 8:27 (specimen) EST PM EST Resulting Agency Comment Spec In Lab Daphne Shahid MD CHEMISTRY ORDERABLES Performing Organization Address City/State/[place] [address] (ABNORMAL) POCT Glucose (07/05/2017 7:32 PM EST) athologist Signature POC Glucose 296 (H) 65 - 199 [facility] mg/dL [facility] Comment: Supplemental ranges: <140 mg/dL before meals <180 mg/dL all other times of the day Specimen Anatomical Collection Method Collection Time Receive d Time (Source) Location / / Volume Laterality Blood specimen 07/05/2017 7:32 PM 017 7:32 (specimen) EST PM EST Daphne Shahid MD POINT OF CARE TEST ORDERABLE S Performing Organization Address City/State/[place] [address] CARDIAC CATHETERIZATION (07/05/2017 6:47 PM EST) Specimen (Source) Anatomical Location Collection Method / Collectio n Time Received Time / Laterality Volume Narrative CARDIOMAC SYSTEM - 07/05/2017 7:27 PM ES T ?[facility] ? Cardiac Cathete rization/Intervention Report ? Patient Name: Natalya, Gregory ? Procedure Date: 07/05/2017 ? A #: [id number] ? Primary Physician: Clarisa, Jet Sampson ? Case #: [id number] ? File Name: [id number] ? Catheterization Order Number: [id number] ? [facility] ? Final Report [place], [place] ? Patient Name: ? Gregory Natalya ?ID#: ?[id number] ? : ?1945 ? Procedure Date: ? [...] presented with: non -STEMI (w/i 7 days). [place] ?Cardiovascular Society angina c lass was IV. [...] site angio graphy and IABP insertion in open hearth laborer. ? Jet Mckenna, M.D. ? Electronically Signed by: Jet Robbins s, M.D. ? Report Finalized: 07/05/2017 ??19:23 ? Report Last Ammended: 10/26/2017 ??10:29 ? Procedure Note Jet Mckenna MD - 10/26/2017Formatt ing of this note might be different from the original. [facility] Cardiac Catheterization/Intervention Re port Patient Name: Gregory Hoang Procedure Date: 07/05/2017 A #: [id number] Primary Physician: Jet Mckenna Case #: [id number] File Name: [id number] Catheterization Order Number: [id number] [facility] Final Report [place], [place] Patient Name: Gregory Hoang ID#: [id number] : 1945 Procedure Date: July 05, [...] presented with: non-STEMI ( w/i 7 days). [place] [employer] angina class was IV. No [...] site angiograph y and IABP insertion in open hearth laborer. Jet Mckenna M.D. Electronically Signed by: Jet [...] Mccollum ? (Age): 1945(72y) Med Rec#: ? [id number] ?Sex: ?M ? Site Loc: ? [facility] ?Ht / Wt: ??173(cm)/86(kg) Pt. Loc: ?[facility] ? BSA: ?2 Study Date: ?? 07/05/2017 ?Pt. Type: Inpatient Tape: ? Referring: Daphne Shahid ([id number]) Referring: MANDA ALCANTAR Reading: Blade Preston ([id number]) Group Practice Pediatrician: Dayami Paula BA, [facility] Diagnosis: *ICD-10-PCS Non-ST elevation (NSTEMI) [...] E-wave Vmax ?0.8 ?m/sec ? MV deceleration [id number] ?msec ? MV A-wave Vmax ?0.8 ?m/sec [...] ? Mid-Inferior ?Akinetic ? Mid-Inferoseptal ?Hypokinetic ? [place]-Septal ? Akinetic ? [place]-Anterior ? Hypokinetic ? [place]-Lateral ?Hypokinetic ? [place]-Inferior ? Akinetic ? [place]-Tip ?Akinetic ? This report has been electronically sign ed by: _ Blade Preston MD ? 07/06/2017 08 :53:15 Images [facility] Procedure Note Blade Preston MD - 07/06/2017Formatt ing of this note might be different from the original. Procedure: Transthoracic Echocardiogram Patient: NATALYA MCBRIDE(Age): [birth year]72y) Med Rec#: [id number] Sex: M Site Loc: [facility] Ht / Wt: 173(cm)/86(kg) Pt. Loc: [facility] BSA: 2 Study Date: 07/05/2017 Pt. Type: Inpatie nt Tape: Referring: Daphne Shahid ([id number]) Referring: MANDA ALCANTAR Reading: Blade Preston ([id number]) Group Practice Pediatrician: Dayami Paula BA, [facility] Diagnosis: *ICD-10-PCS Non-ST elevation (NSTEMI) [...] MV E-wave Vmax 0.8 m/sec MV deceleration [id number] msec MV A-wave Vmax 0.8 m/sec MV [...] Hypokinetic Mid-Posterolateral Hypokinetic Mid-Inferior Akinetic Mid-Inferoseptal Hypokinetic [place]-Septal Akinetic [place]-Anterior Hypokinetic [place]-Lateral Hypokinetic [place]-Inferior Akinetic [place]-Tip Akinetic This report has been electronically sign ed by: _ Blade Preston MD 07/06/2017 08:53:15 Images reviewed and interpretation verif ied [facility] Cardiac Ultrasound Laboratory Daphne Shahid MD ECHO ORDERABLES Performing Organization Address City/State/ZIP Code Phon e Number [facility] Differential, Automated (07/05/2017 4:55 PM EST) P athologist Signature Neutrophils % 77.0 % [facility] LABORATORY Neutr Abs (ANC) 5.26 1.70 - [facility] 6.10 [facility] x10(3)/[facility] LABORATORY Lymphocytes % 13.3 % [facility] LABORATORY Lymphocytes Abs 0.9 0.9 - 3.2 [facility] x10(3)/[facility] LABORATORY Monocytes % 8.2 % [facility] LABORATORY Monocyte Abs 0.6 0.3 - 0.9 [facility] x10(3)/[facility] LABORATORY Eosinophils % 0.7 % [facility] LABORATORY Eosinophils Abs 0.0 0.0 - 0.4 [facility] x10(3)/[facility] LABORATORY Basophils % 0.4 % [facility] LABORATORY Basophils Abs 0.0 0.0 - 0.1 [facility] x10(3)/[facility] LABORATORY Immature Gran % 0.40 % [...] Melisa Gran Abs 0.03 0.00 - 0.04 x10(3)/[facility] LABORATORY Specimen Anatomical Collection Method Collection Time Receive d Time (Source) Location / / Volume Laterality Blood specimen 07/05/2017 4:55 PM 017 5:24 (specimen) EST PM EST Resulting Agency Comment Spec In Lab Daphne Shahid MD HEMATOLOGY ORDERABLES Performing Organization Address City/State/[place] [address] (ABNORMAL) Hemogram (07/05/2017 4:55 PM EST) Analysis Performed At Patho logist Time Signature WBC 6.8 4.0 - 9.5 [facility] x10(3)/[facility] LABORATORY RBC 4.67 4.58 - [facility] 5.54 [facility] x10(6)/[facility] LABORATORY Hemoglobin 14.0 13.7 - [facility] 16.5 gm/dL [facility] LABORATORY Hematocrit 41.0 40.5 - [facility] 48.5 % [facility]ORATORY MCV 87.8 82.9 - [facility] 93.1 [facility] LABORATORY MCH 30.0 27.5 - [facility] 32.1 pg [facility] LABORATORY MCHC 34.1 32.0 - [facility] 35.7 gm/dL [facility] LABORATORY Platelets 197 145 - 357 [facility] x10(3)/[facility] LABORATORY RDWSD 46.4 (H) 36.0 - [facility] 45.0 [facility] LABORATORY RDWCV 14.5 (H) 11.4 - [facility] 13.8 % [facility] LABORATORY MPV 9.7 7.6 - 12.9 [facility] LABORATORY nRBC % Auto 0.0 % [facility] LABORATORY nRBC Abs Auto 0.000 0.000 - [facility] 0.000 [facility] x10(3)/[facility] LABORATORY Specimen Anatomical Collection Method Collection Time Receive d Time (Source) Location / / Volume Laterality Blood specimen 07/05/2017 4:55 PM 017 5:24 (specimen) EST PM EST Resulting Agency Comment Spec In Lab Daphne Shahid MD HEMATOLOGY ORDERABLES Performing Organization Address City/[facility]/ZIP [place] [address] (ABNORMAL) Cardiac Enzymes (LEB/CGP) (07/05/2017 4:55 PM EST) P athologist Signature Troponin-T 1.69 (H) 0.00 - [place] 0.00 ng/mL [facility] Comment: The 99th percentile for Troponin T is le ss than 0.01 ng/mL, any detectable cTnT concentration using this assay should be considered elevated. According to the third universal definit ion of myocardial infarction the following criteria with a clinical prese ntation consistent with acute myocardial ischemia meets the diagnosis for a myocardial infarction (MA). Detection of a rise and/or fall of [...] additional sample may be indicated. Reference: Third [place] Definition of Myocardial Infarction. Journal of the [place] College of Cardiology 2012;60:1581-98 CK, Total 191 0 - 200 unit/L [facility] LABORATORY Specimen Anatomical Collection Method Collection Time Receive d Time (Source) Location / / Volume Laterality Blood specimen 07/05/2017 4:55 PM 017 5:56 (specimen) EST PM EST Resulting Agency Comment Spec In Lab Daphne Shahid MD CHEMISTRY ORDERABLES Performing Organization Address City/[facility]/ZIP [place] [address] (ABNORMAL) pro-Brain Natriuretic Peptide (07/05/2017 4:55 PM EST) athologist Signature ProBNP 1,598 (H) <=125 [facility] SU pg/mL [facility] LABORATORY Specimen Anatomical Collection Method Collection Time Receive d Time (Source) Location / / Volume Laterality Blood specimen 07/05/2017 4:55 PM 017 5:24 (specimen) EST PM EST Resulting Agency Comment Spec In Lab Daphne Shahid MD CHEMISTRY ORDERABLES Performing Organization Address City/[facility]/ZIP Code Phon e Number [address] Magnesium (07/05/2017 4:55 PM EST) athologist [facility] Magnesium 0.78 0.69 - 1.07 [facility] mmol/L [facility] LABORATORY Specimen Anatomical Collection Method Collection Time Receive d Time (Source) Location / / Volume Laterality Blood specimen 07/05/2017 4:55 PM 017 5:24 (specimen) EST PM EST Resulting Agency Comment Spec In Lab Daphne Shahid MD CHEMISTRY ORDERABLES Performing Organization Address City/State/ZIP Code Phon e Number [address] (ABNORMAL) Basic Metabolic Panel (non-fasting) (07/05/2017 4:55 PM EST) athologist [facility] Glucose Lvl 230 (H) 65 - 199 [facility] mg/dL [facility] LABORATORY Comment: Diabetes: >=200 mg/dL plus symp toms BUN 19 10 - 20 mg/dL [facility] LABORATORY Creatinine 1.04 0.80 - 1.50 mg/dL [facility] LABORATORY Sodium 142 135 - 145 mmol/L [facility] LABORATORY Potassium 4.0 3.5 - 5.0 mmol/L [facility] [...] [facility] Estimated GFR >60 >=60 [facility] LABORATORY Comment: The reported eGFR should be multiplied b y 1.2 for patients. The MDRD is not an appropriate measure o f renal function for patients with body mass extremes or in patients with acute kidney failure. http://[employer]/DHnkdep http://[employer]/DHMCnkf Specimen Anatomical Collection Method Collection Time Receive d Time (Source) Location / / Volume Laterality Blood specimen 07/05/2017 4:55 PM 017 5:24 (specimen) EST PM EST Resulting Agency Comment Spec In Lab Daphne Shahid MD CHEMISTRY ORDERABLES Performing Organization Address City/[facility] [place] [address] (ABNORMAL) APTT (07/05/2017 4:55 PM EST) P athologist Signature PTT 41 (H) 25 - 35 sec [facility] LABORATORY Comment: The recommended therapeutic range for fu ll dose, unfractionated heparin at [facility] is 80 ? 114 [...] Shahid MD HEMATOLOGY ORDERABLES Performing Organization Address City/[facility]/ZIP Code Phon e Number [address] (ABNORMAL) POCT Glucose (07/05/2017 4:53 PM EST) P athologist Signature POC Glucose 208 (H) 65 - 199 [facility] mg/dL [facility] LABOR[facility]ORY Comment: Supplemental ranges: <140 mg/dL before meals <180 mg/dL all other times of the day Specimen Anatomical Collection Method Collection Time Receive d Time (Source) Location / / Volume Laterality Blood specimen 07/05/2017 4:53 PM 017 4:53 (specimen) EST PM EST Daphne Shahid MD POINT OF CARE TEST ORDERABLE S Performing Organization Address City/State/[place] [address] EKG 12 Lead (07/05/2017 4:32 PM EST) Component Value Ref Range Test Analysis Performed Pathologis t Method Time At Signature Ventricular rate 97 BPM MUSE SYSTEM Atrial Rate 97 BPM MUSE SYSTEM P-R Interval 148 ms MUSE SYSTEM QRS Duration 96 ms MUSE SYSTEM Q-T Interval 364 ms MUSE SYSTEM QTC Calculated 462 ms MUSE SYSTEM (Bezet) Calculated P [place] 48 degrees MUSE SYSTEM Calculated R [place] -33 degrees MUSE SYSTEM Calculated T [place] 98 degrees MUSE SYSTEM INTERPRETATION Normal sinus [...] post-op day 1 in the AM Give ME if unable to take PO, Routine Given [...] post-op day 1 in the AM Give ME if unable to take PO, Routine atorvastatin [...] ablet 20 mEq 1003 (Given - Provider: oMre Luther RN) 0841 (Given - Provider: Em [...] post-op day 1 in the AM Give ME if unable to take PO
Routine Group [...]
Routine documented in this encounter Care Teams Link Knitting Machine Operator Relationship Specialty Start Date End Date Lovely Vicente MD PCP - General 04/16/[address] [place] [address] documented as of this encounter
--- OUTSIDE RECORDS SUMMARY | 2022-02-16 08:21 | XMS_ITS | Encounter Summary ---
:1945 [place] [address] Care Team Providers Name Role Phone Lovely Vicente MD Primary Care Provider Reason for Visit Auth/Cert Specialty Diagnoses / Procedures Referred By Contact Refer red To Contact Diagnoses STEMI (ST elevation myocardial infarction) NSTEMI STEMI Procedures CARDIAC CATHETERIZATION NAYE IPI Referral ID Status Reason Start Date Expiration Date Visits Requ ested Visits Authorized [id number] 1 1 Encounter Details Date Type Department Care Team Description 07/07/2017 Anesthesia Event Main Operating Room Yifan Jaime MD [facility] [place] [address] [facility] Ginny Murray MD [facility] [place] [address] [facility] [place] [address] Anesthesia Record Procedure Summary Procedure Name [...] 2342 LDA Cath/EP Sheath 07/05/17; 0606; 8 Citizen Of [place] 07/05/17 0606 by [id number] by (Fr); Right; Femoral [place]iana Park, Yane Cook, RN PIV 07/05/17; 1720; median 07/05/17 1720 by 07/11/17 2355 by vein (underside of arm), Prior, Yanet Maza, VAMSI Crum, Angela Gomes, left; 18 gauge; removed GENERAL UTILITY WORKER per policy/procedure; 07/11/17; 2355 Intra-Aortic Balloon 07/05/17; [...] Miller, Carrie L, Type: Cuffed; ETT Size: WOOD PRODUCTS MANUFACTURER 8 mm; Santiago Blade: 2; Notes: Asleep, [...] Murray MD - 07/08/2017 5:08 PM EST [facility] Department of Anesthesiology Post-procedure Note Patient: Don Fatima Procedure Summary Date Anesthesia Start Anesthesia Stop Room / Location 07/07/17 1335 1836 [facility] OR [facility] MAIN OR Procedure Diagnosis Surgeon Responsible Provider @CABG, USING ARTERIAL GRAFT;SINGLE ARTERIAL GRAFT (WRVU 33.75) (N/A Chest); @CABG, TWO VENOUS GRAFTS & ARTERIAL GRAFT (WRVU 7.93) (N/A Chest); ENDOSCOPIC HARVEST VEIN(S) FOR CABG (WRVU 0.31) (Right Leg) (CAD) Yuan Freitas MD Hartman, Gregg S, MD All Anesthesia Providers: Anesthesiologist: Yifan Perez MD Public Services Assistant: Ginny Murray MD Most Recent Vitals: 07/08/17 [...] SETUP performed by Manny Mcknight MD at [facility] MAIN OR ??? PRO COLONOSCOPY, REMV LESN, SNARE 01/16/2014 COLONOSCOPY, POLYPECTOMY, REMOVAL LESION BY SNARE performed by Nohemi Jaimes MD at [facility] ENDOSCOPY ??? PRO THYROIDECTOMY 03/28/2013 THYROIDECTOMY, TOTAL OR COMPLETE performed by Manny Mcknight MD at [facility] MAIN OR Social History Substance Use [...] [facility] er Cardiology Dept [place], [place] [address] (Wo rk) 03/26/2022 Office Visit Cardiology Vitaliy Nobles MD [facility] CARDIOLOGY [place], [place] [address] (Wo rk) documented as of [...] mg documented in this encounter Care Teams Medical Equipment Technician Relationship Specialty Start Date End Date Lovely Vicente MD PCP - General 04/16/[address] [place] [address] documented as of this encounter
--- OUTSIDE RECORDS SUMMARY | 2022-02-16 08:22 | XMS_ITS | Encounter Summary ---
:1945 Author Organization [facility] [place] [address] Care Team Providers Name Role Phone Lovely Vicente MD Primary Care Provider Reason for Visit Reason Onset Date Comments Medication Refill 06/19/2016 Encounter Details Date Type Department Care Team Description 06/19/[address] [facility] Luz Stallings MD [facility] [place] [address] ENDOCRINOLOGY DEPT [phone] [place], [place] [address] (Wo rk) Social History Tobacco [...] Office Visit Cardiology Liz Poole PA [facility] er Cardiology Dept [place], [place] [address] (Wo rk) 03/26/2022 Office Visit Cardiology Vitaliy Nobles MD [facility] ER CARDIOLOGY [place], [place] [address] (Wo rk) documented as of this encounter Visit Diagnoses Not on filedocumented in this encounter Care Teams Experimental Aircraft Mechanic Relationship Specialty Start Date End Date Lovely Vicente MD PCP - General 04/16/[address] [place] [address] documented as of this encounter
--- OUTSIDE RECORDS SUMMARY | 2022-02-16 08:22 | XMS_ITS | Encounter Summary ---
:1945 Author Organization [facility] [place] [address] Care Team Providers Name Role Phone Som Holliday APRN Primary Care Provider Encounter Details Date Type Department Care Team Description 04/11/2014 Procedure visit Gastroenterology at [facility] Esophageal reflux [facility] Luz Winchester RN (Primary Dx) [place] [address] Social History Tobacco Use Types Packs/Day Years Used Date Former Smoker Alcohol Use Standard Drinks/Week Comments No 0 (1 standard drink = 0.6 oz pure alcoho l) Sex Assigned at Date Recorded Not on file documented as of this encounter Progress Notes Adalid Can MD - 04/13/2014 3:43 PM EDT ESOPHAGEAL MANOMETRY Don Fatima Male, 69 yrs, 1945 PCP: SOM [place] BULK STATION AGENT: NONE STUDY DATE: 04/11/14 PROVIDER: Ad[place] ([id number]) INDICATION Reflux; preoperative evaluation. METHODS Stationary esophageal manometry was performed with the [employer] esophageal motility system utilizing the Polygram software [...] of the esophagus. Adalid Can, PhD, MD ichthyologist, [facility] Section of Gastroenterology and Hepatology [facility] [place] [address] V: [phone] F: [phone] [facility]/gabriela CC/EC: PCP - staff msg copy 04/13/14 Henrique Taylor MD - fax copy 04/13/14 Luz Keller RN - 04/11/2014 8:14 AM EDT Esophageal manometry performed without difficulty and Was well tolerated. documented in this encounter Plan of Treatment Upcoming Encounters Date Type Specialty Care Team Description 02/19/2022 Laboratory Appointment Lab 02/19/2022 Office Visit Cardiology Liz Poole PA [facility] Medical [facility] er Cardiology Dept [place], [place] [address] (Wo rk) 03/26/2022 Office Visit Cardiology Vitaliy Nobles MD [facility] ER CARDIOLOGY [place], [place] [address] (Wo rk) documented as of this encounter Visit Diagnoses Diagnosis Esophageal reflux - Primary documented in this encounter Care Teams Drywall Finisher Foreman Relationship Specialty Start Date End Date Som Holliday APRN PCP - General 01/25/13 04/15/[address] [place] [address] documented as of this encounter
--- OUTSIDE RECORDS SUMMARY | 2022-02-16 08:22 | XMS_ITS | Encounter Summary ---
:1945 Author Organization [facility] Address [facility] [address] [place] [address] Care Team Providers Name Role Phone Lovely Vicente MD Primary Care Provider Reason for Visit Reason Comments Skin Check Encounter Details Date Type Department Care Team Description 11/05/2015 Office Visit Dermatology at [facility]an benign nevi; Abdelrahman HOOPER MD Lentigines; [address] [facility] History of melanoma; [place] [address] Skin exam for malignant neoplasm [phone] [facility] [place], [place] [address] Social History Tobacco Use Types [...] Drum (ACCU-CHEK COMPACT TEST) Strip by [facility].(Non- Drug; Combo Route) route 2 times daily. [...] Garcia MD Section of Dermatology [facility] documented in this encounter Plan of Treatment Upcoming Encounters Date Type Specialty Care Team Description 02/19/2022 Laboratory Appointment Lab 02/19/2022 Office Visit Cardiology Liz Poole PA [facility] Medical [facility] Cardiology [place], [place] [address] (Wo rk) 03/26/2022 Office Visit Cardiology Vitaliy Nobles MD [facility] MEDICAL [facility] CARDIOLOGY [place], [place] [address] (Wo rk) documented as of this encounter Visit Diagnoses Diagnosis Multiple benign nevi Benign neoplasm of skin, site unspecifie d Lentigines Other dyschromia History of melanoma Personal history of malignant melanoma o f skin Skin exam for malignant neoplasm Screening for malignant neoplasm of the skin documented in this encounter Care Teams Patent Prosecution Attorney Relationship Specialty Start Date End Date Lovely Vicente MD PCP - General 04/16/[address] [place] [address] [address] [place] [address] documented as of this encounter
--- OUTSIDE RECORDS SUMMARY | 2022-02-16 08:22 | XMS_ITS | Encounter Summary ---
:1945 Author Organization [facility] [place] [address] Care Team Providers Name Role Phone Lovely Vicente MD Primary Care Provider Reason for Visit Reason Comments Skin Lesion Encounter Details Date Type Department Care Team Description 11/24/2016 [facility]oplasm of uncertain behavior of skin; Road IIIMD Pigmented skin lesion of uncertain natur e; [address] [facility] [place] of [place] [address] [facility] SIM[facility]-DERMATOLGY [place], [place] [address] Social History Tobacco Use Types [...] or concerns, please call the office at [phone]. If it is after 5PM, or a holiday or weekend, please call [phone] and ask for the Bacteriologist Soil on-call. documented in this encounter Progress Notes [...] 71 y.o. year old male.Established patient of [employer]. Last seen 06/05/16. Here today for new [...] Garcia MD Section of Dermatology [facility] documented in this encounter Plan of Treatment Upcoming Encounters Date Type Specialty Care Team Description 02/19/2022 Laboratory Appointment Lab 02/19/2022 Office Visit Cardiology Liz Poole PA [facility] Medical [facility] er Cardiology Dept [place], [place] [address] (Mikayla alcaraz) 03/26/2022 Office Visit Cardiology Vitaliy Nobles MD [facility] CARDIOLOGY [place], [place] [address] (Mikayla alcaraz) documented as of [...] Component Value Ref Test Analysis Performed At [facility] Range Method Time Signature Surgical [id number] ?Location: [facility] Report The signing pathologist has (i) [...] Organization Address City/State/[place] [address] Specimen to Pathology (NON-OR) (11/24/2016 8:28 AM EDT) Specimen Anatomical Collection Method Collection Time Receive d Time (Source) Location / / Volume Laterality AP Specimen 11/24/2016 8:28 AM 7 9:29 EDT AM EDT Narrative [facility] - 11/24/2016 9:29 AM EDT Specimen requisition ordered. ??Separate Pathology report to follow Resulting Agency Comment Spec In Lab Rigoberto Garcia III, MD PATHOLOGY/CYTOLOGY ORDERABLE S Performing Organization Address City/State/ZIP Code Phon e Number [place] [id number] documented in this encounter Visit Diagnoses Diagnosis Neoplasm of uncertain behavior of skin Pigmented skin lesion of uncertain natur e History of melanoma Personal history of malignant melanoma o f skin documented in this encounter Care Teams Integrated Specialist Relationship Specialty Start Date End Date Lovely Vicente MD PCP - General 04/16/15 [facility] [address] [place] [address] documented as of this encounter
--- OUTSIDE RECORDS SUMMARY | 2022-02-16 08:22 | XMS_ITS | Encounter Summary ---
:1945 [place] [address] Care Team Providers Name Role Phone Lovely Vicente MD Primary Care Provider Reason for Visit Reason Onset Date Comments Other 12/09/2016 RESULTS Encounter Details Date Type Department Care Team Description 12/09/2016 Telephone Dermatology at [facility] Halima Cadet MD Other (RESULTS) [address] [facility] [place] [address] [facility] [phone] [place], [place] [address] (Wo rk) Social History Tobacco [...] EDT Spoke with patient's , Kisha (personal financial services sales representative). I advised her Don's pathology results [...] back. She can be reached back at [phone] documented in this encounter Plan of Treatment Upcoming Encounters Date Type Specialty Care Team Description 02/19/2022 Laboratory Appointment Lab 02/19/2022 Office Visit Cardiology Liz Poole PA [facility] Medical [facility] Cardiology Dept [place], [place] [address] (Wo rk) 03/26/2022 Office Visit Cardiology Vitaliy Nobles MD [facility] CARDIOLOGY [place], [place] [address] (Wo rk) documented as of this encounter Visit Diagnoses Not on filedocumented in this encounter Care Teams Post Exchange Manager Relationship Specialty Start Date End Date Lovely Vicente MD PCP - General 04/16/[address] [place] [address] documented as of this encounter
--- OUTSIDE RECORDS SUMMARY | 2022-02-16 08:22 | XMS_ITS | Encounter Summary ---
:1945 Author Organization [facility] [place] [address] Care Team Providers Name Role Phone MiyaAngela STACIE Primary Care Provider Reason for Visit Reason Comments Urinary Retention Encounter Details Date Type Department Care Team Description 05/16/2013 Follow-Up Urology at [facility] Blade Smith, Retention of urine [facility] (Primary Dx) [place] [address] UROLOGY DEPT [place] [id number] (Wo rk) Social History Tobacco Use Types [...] PA [facility] er Cardiology Dept [place], [place] [address] (Wo rk) 03/26/2022 Office Visit Cardiology Vitaliy Nobles MD [facility] CARDIOLOGY [place], [place] [address] (Wo rk) documented as of this encounter Visit Diagnoses Diagnosis Retention of urine - Primary Retention of urine, unspecified documented in this encounter Care Teams Sr Community Manager Relationship Specialty Start Date End Date Angela Holliday APRN PCP - General 01/25/13 04/15/[address] [place] [address] documented as of this encounter
--- OUTSIDE RECORDS SUMMARY | 2022-02-16 08:22 | XMS_ITS | Encounter Summary ---
:1945 [place] [address] Care Team Providers Name Role Phone Lovely Vicente MD Primary Care Provider Reason for Visit Auth/Cert Specialty Diagnoses / Procedures Referred By Contact Refer red To Contact Diagnoses STEMI (ST elevation myocardial infarction) NSTEMI STEMI Procedures CARDIAC CATHETERIZATION NAYE IPI Referral ID Status Reason Start Date Expiration Date Visits Requ ested Visits Authorized [id number] 1 1 Encounter Details Date Type Department Care Team Description 07/05/2017 Surgery Grades 1 Thru 5 Teacher Jet Guan, CARDIAC CATHETERIZATION [facility] [place] [address] CARDIOLOGY DEPT. [phone] [place], [place] [address] (Wo rk) Social History Tobacco [...] this encounter Discharge Summaries Martha Teague S, LIFELINE REPRESENTATIVES - 07/14/2017 9:38 AM EST Inpatient - Discharge Summary Patient Name: Gregory Hoang Patient Age: 72 y.o. Birthdate: 1945 Language: Armenian Race: White Ethnicity: Not nor Admit Date: [...] , @ 1:20p Patient to follow-up with Value Analyst/heart failure team in one week. An appointment will be made for you. You may call [phone] Patient to follow-up with Cardiac Surgery, Dr. Yuan Webber, in ~ 4 weeks with CXR, EKG. Inpatient Provider Contact Information: [facility] Section of Cardiac Surgery [facility] [address] FAX [phone] Discharge Diagnoses (Hospital Problems) Primary Diagnoses: CAD [...] SETUP performed by Manny Mcknight MD at [facility] OR ??? PRO CABG, ARTERIAL, SINGLE N/A 07/07/2017 @CABG, USING ARTERIAL GRAFT;SINGLE ARTERIAL GRAFT (WRVU 33.75) performed by Yuan Webber MD at [facility] OR ??? PRO CABG, ARTERY-VEIN, TWO N/A 07/07/2017 @CABG, TWO VENOUS GRAFTS & ARTERIAL GRAFT (WRVU 7.93) performed by Yuan Webber MD at [facility] OR ??? PRO COLONOSCOPY, REMV LESN, SNARE 01/16/2014 COLONOSCOPY, POLYPECTOMY, REMOVAL LESION BY SNARE performed by Nohemi Jaimes MD at [facility] ENDOSCOPY ??? PRO ENDOSCOPY W/VIDEO-ASST VEIN HARVEST, CABG Right 07/07/2017 ENDOSCOPIC HARVEST VEIN(S) FOR CABG (WRVU 0.31) performed by Yuan Webber MD at [facility] OR ??? PRO THYROIDECTOMY 03/28/2013 THYROIDECTOMY, TOTAL OR COMPLETE performed by Manny Mcknight MD at [facility] OR Prior To Admission Medications Prescriptions Prior to Admission Medication Sig Dispense Refill Last Dose ??? levothyroxine (SYNTHROID) 175 mcg Tablet Take 1 tablet by mouth daily. 90 tablet 3 07/05/2017 [id number] ??? ascorbic acid, vitamin C, (VITAMIN C) [...] hospital and ruled infor non-ST segment elevation [place]. This almost certainly represents the residual of [...] Hospital Course: Gregory Hoang was admitted to [facility] on 07/05/2017 via the Cardiology Service. During his hospital course, he was taken emergently to the home performance laborer for an ongoing STEMI. An IABP [...] not take or discontinue any prescription or plhn-pcd-kohlnfp medications without asking your doctor or pharmacist [...] day to have your insulin doses adjusted. [facility] Endocrine clinic office Discharge Instructions: Call your doctor if: You have a fever of greater than 101 degrees, shaking chills, if you develop redness or drainage from your incision sites, or if you have questions. Please call your surgeon's office if you have any discharge or drainage from your chest incision. Your surgeon, Dr. Yuan Webber and/or the Cardiac Surgery Physician Soda Clerk Team may be reached at . Weight: [...] Dr. Yuan Webber. You may use a [place] Track or treadmill but avoid any pulling [...] friends, go to a movie, go to methodist, etc. Heavy activities: No hunting, skiing, jogging, snow shoveling, snowmobiling, lawn mowing, swimming, golf or tennis until after your return appointment with the surgeon. Do not ride motorcycles, [employer] tractors or horses. Avoid the use of [...] should resume a low fat, low cholesterol, British Heart Association Diet/Diabetic diet. Driving: No driving [...] , @ 1:20p Patient to follow-up with Value Analyst/heart failure team in one week. Appointment will be made for you. You may call [phone] Patient to follow-up with Cardiac Surgery, Dr. Yuan Webber, in ~ 4 weeks with CXR, EKG. Cardiac Rehabilitation: Gregory Hoang was seen today regarding participation in the outpatient Phase 2 Cardiac Rehabilitation at [facility]. The patient agrees to a referral to this program. The referral will be sent at discharge and the patient should be contacted by the Program within 1- 2 weeks from discharge. ?? Future Appointments and Orders Future Appointments Provider Department Dept Phone 09/07/2017 3:00 PM LAB, THREE L Lab 3L [facility] [phone] 09/07/2017 4:00 PM Luz Prescott MD Endocrinology at [facility] [phone] Future Orders Complete By Expires EKG 12 Lead [EKG1 Custom] 08/14/2017 02/13/2018 Process Instructions: Scheduling Instructions: Questions: Which DH location will this be performed?: [facility] Is a rhythm strip needed?: No If EKG Reason is Pre-op Evaluation, indicate diagnosis for surgery.: XR Chest PA & Lateral (Generic) [[id number] Custom] 08/14/2017 02/13/2018 Process Instructions: Scheduling Instructions: Questions: Where will study be performed?: [facility] Portable exam?: Reason for exam and clinical history: CABG x 3 Other pertinent information: Stat read required?: Date of injury if applicable: Requested Time: Referral to Cardiac Rehab [LIX516 Custom] As directed Process Instructions: If no progress note charted, please enter Clinical details in comments. Scheduling Instructions: Questions: My question or request is: s/p CABG. Cardiac rehab at [facility] Referral to Home Health - at DISCHARGE [LVO7774 CPT(R)] As directed Process Instructions: Scheduling Instructions: Comments: DOCUMENTATION FOR VNA SERVICES (INCLUDING THOSE PATIENTS WITH MEDICARE COVERAGE REQUIRING HOME VNA SERVICES AND/OR HOSPICE SERVICES) PATIENT'S LOCATION: Gregory Hoang [address] [place] [address] [place] [phone] (home) Telephone Information: Derrick Hand's Name: self In discussion with the attending physician, it is certified that this patient is under their care and that they, or a Nurse Practitioner, or Physician Soda Clerk who is working directly with them, had [...] HEALTH AGENCY: [facility] ([facility] [place] [facility] in [place] PHONE: [phone] FAX: [phone] RN orders: Cardiopulmonary assessment, incisional assessment, assess vital signs, assessment of rehab progress, medication management and effectiveness, home safety evaluation. Please draw INR if indicated and send result to:Dr Vicente [phone] PT ORDERS: Continue rehab for endurance, gait stability and strength with mobility and transfers. Home safety evaluation. Home exercise program if appropriate. Start of Care Date:24-48 hours after discharge SPECIAL INSTRUCTIONS: For any follow up questions, needs, or issues please call the Cardiac Surgery Office at [phone] FOR MEDICARE ONLY: (please delete this section [...] OR AFTER 07/17/2017 Signed: Martha Teague APRN [facility] Section of Cardiac Surgery [facility] [address] FAX [phone] Date: 07/14/2017 CC: MD Ivania Cr Betsy, PA [address] [place] [phone] documented in this encounter Discharge Instructions Discharge [...] day to have your insulin doses adjusted. [facility] Endocrine clinic office Patient InstructionsStMartha mcdonald APRN [...] not take or discontinue any prescription or qqco-ldi-tgltwfi medications without asking your doctor or pharmacist [...] day to have your insulin doses adjusted. [facility] Endocrine clinic office ? Discharge Instructions: ?? Call your doctor if: You have a fever of greater than 101 degrees, shaking chills, if you develop redness or drainage from your incision sites, or if you have questions. Please call your surgeon's office if you have any discharge or drainage from your chest incision. Your surgeon, Dr. Yuan Webber and/or the Cardiac Surgery Physician Soda Clerk Team may be reached at . ?? [...] Dr. Yuan Webber. You may use a [place] Track or treadmill but avoid any pulling [...] friends, go to a movie, go to methodist, etc. ?? Heavy activities: No hunting, skiing, jogging, snow shoveling, snowmobiling, lawn mowing, swimming, golf or tennis until after your return appointment with the surgeon. Do not ride motorcycles, [employer]'s tractors or horses. Avoid the use of [...] should resume a low fat, low cholesterol, British Heart Association Diet/Diabetic diet. ?? Driving: No [...] @ 1:20p ?? Patient to follow-up with Value Analyst/heart failure team in one week. An appointment has been made for you, you can call [phone] ?? Patient to follow-up with Cardiac Surgery, Dr. Yuan Webber, in ~ 4 weeks with CXR, EKG. ? Cardiac Rehabilitation: Gregory Hoang??was seen today regarding participation in the outpatient Phase 2 Cardiac Rehabilitation at [facility]. ?? The patient agrees to a referral to this program.? The referral will be sent at discharge and the patient should be contacted by the Program within 1- 2 weeks from discharge. ? Future Appointments and Orders Future Appointments Provider Department Dept Phone ?? 09/07/2017 3:00 PM LAB, THREE L Lab 3L [facility] [phone] ?? 09/07/2017 4:00 PM Luz Prescott MD Endocrinology at [facility] [phone] Future Orders Complete By Expires ?? EKG 12 Lead [EKG1 Custom] 08/14/2017 02/13/2018 ?? Process Instructions: ? Scheduling Instructions: ? Questions: ? Which location will this be performed?: [facility] ?? Is a rhythm strip needed?: No ?? If EKG Reason is Pre-op Evaluation, indicate diagnosis for surgery.: ?? XR Chest PA & Lateral (Generic) [[id number] Custom] 08/14/2017 02/13/2018 ?? Process Instructions: ? Scheduling Instructions: ? Questions: ? Where will study be performed?: [facility] ?? Portable exam?: ?? Reason for exam and clinical history: CABG x 3 ?? Other pertinent information: ?? Stat read required?: ?? Date of injury if applicable: ?? Requested Time: ?? Referral to Cardiac Rehab [CNH730 Custom] As directed ? Process Instructions: ?? If no progress note charted, please enter Clinical details in comments. ?? Scheduling Instructions: ? Questions: ? My question or request is: s/p CABG. Cardiac rehab at [facility] ? Arrangements for VNA/home care: [...] RN - 07/14/2017 2:34 PM EST The patient/assisted sales representative has been provided a list of Home Health Agencies/DME vendors which serve their preferred geographic area. A letter describing our affiliations was reviewed with them and theywere educated about their right to choose where referrals are placed. Patient requests referral to [facility]. PHONE: [phone] FAX: [phone] Expected date of discharge: 07/14 Referral routed to the Ecological Economist for matching with agency/vendor and to provide [...] day to have your insulin doses adjusted. [facility] Endocrine clinic office Kathie Carrera APRN [facility] Endocrinology Diabetes Management Pager [phone] minutes of this 35 minute visit was spent with the patient in counseling on diabetes and treatment plan, reviewing all glucose and insulin data as well as relevant laboratory results with the patient, and coordination of care on the inpatient unit including nursing and primary team. Zulma Andres RN - 07/14/2017 10:30 AM EST The patient/assisted sales representative has been provided a list of Home Health Agencies/DME vendors which serve their preferred geographic area. A letter describing our affiliations was reviewed with them and theywere educated about their right to choose where referrals are placed. Patient requests referral to : [facility] ([facility] [place] [facility]-is in [place] PHONE: [phone] FAX: [phone]. Expected date of discharge: 07/14/17 Referral routed to the Ecological Economist for matching with agency/vendor and to provide [...] hours. If BG remains greater than 240, [id number] units (no more than three times) &??call [...] #6 s/p CABG X3. FSBG 80 at MD, reports no symptoms but did drink some [...] Will continue to follow Katerin Azul APRN [facility] Endocrinology Diabetes Management Pager [phone] minutes of this 25 minute visit [...] of infiltration/extravasation Discussed plan of care with RESEARCH MICROBIOLOGIST and RN. Elevate exrtemity and apply intermittent Warm compresses. Name of MD contacted Dr. Shaw Brown 07/13/2017 @ 0655 Name of RN contacted Ale Rangel RN Name of Pharmacist if consulted NA Name of Plastics MD ( if consulted) NA (Mandatory photo for infiltrations/ extravasations scoring a stage 2 or greater, but recommended forstage 1)( include measuring tape and identifier in the photo) PRISON TEACHER CARING FOR THIS PATIENT WILL CONTINUE TO [...] measuring tape and identifier in the photo) PRISON TEACHER CARING FOR THIS PATIENT WILL CONTINUE TO [...] regard to both infiltrates addressed by this automobile and property underwriter.All of Mr. Hoang's responses were entirely appropriate. Images of infiltrates attached here. Martha Sharp APRN - 07/13/2017 8:01 AM EST Cardiac Surgery Progress Note: ID: [id number] 72 year old male POD#6 s/p CABGx3 [...] discharge. ?? I have met with the patient/assisted sales representative to discuss discharge planning needs. I have provided the [facility], Office of Care Management letter from the Serging Machine Operator pertaining to rehab referrals. I have also provided a letter describing our affiliations within the [facility] and educated them about their right to choose where referrals are placed. ?? I reviewed the different levels of rehab including SNF, swing, acute and LTAC with the patient/assisted sales representative. ?? The patient/assisted sales representative has been provided a list of facilities within their preferred geographic area. ?? I have requested that the patient/assisted sales representative provide at least three choices for referral. ?? The patient/assisted sales representative have requested referrals to: ?? 1. . ?? 2. [facility] ?? 3. More to be entered ?? Expected date of discharge: 07/14 Note routed to Ecological Economist who will communicate referrals to facilities and [...] hours. If BG remains greater than 240, [id number] units (no more than three times) & [...] Will continue to follow Katerin Azul APRN [facility] Endocrinology Diabetes Management Pager [phone] 20 minutes of this 35 minute visit was spent with the patient in counseling on diabetes and treatment plan, reviewing all glucose and insulin data as well as relevant laboratory results with the patient, and coordination of care on the inpatient unit including nursing and primary team. Makayla Stevenson APRN - 07/12/2017 9:52 AM EST Cardiac Surgery Progress Note: ID: [id number] 72 year old male POD#5 s/p CABGx3 [...] 07/11/2017 7:18 PM EST Patient arrived from [facility]. VSS. MSI dressing pulled off with fresh [...] hours. If BG remains greater than 240, [id number] units (no more than three times) & [...] AM EST Cardiac Surgery Progress Note: ID: [id number] 72 year old male POD#4 s/p CABGx3 [...] hours. If BG remains greater than 240, [id number] units (no more than three times) & [...] AM EST Cardiac Surgery Progress Note: ID: [id number] 72 year old male POD#3 s/p CABGx3 [...] Gas) No results found for: PHART, PO2ART, FYP4WQJ Assessment/Plan: 72 year old male POD#3 s/p [...] Mami Thao - 07/09/2017 6:29 PM EST Wood Cutter Encounter Note Patient Name: Gregory Hoang : [id number] MR#: [id number] Admit Date: 07/05/2017 4:20 PM Hospital Day 4 days Narrative: Patient was sitting in chair, hugging heart pillow, opened his eyes, nodding to come into room Assessment: Patient was sleepy. Intervention and Outcome: Introduced bioprocessing manufacturing technician services and patient reached his hand out in appreciation. Follow-up: Wood Cutter remains available for support. Time in [...] 07/09/2017 10:45 AM EST Report given to field staff manager to cover care Maddison Cee PA - 07/09/2017 9:00 AM EST Cardiac Surgery Progress Note: ID: [id number] 72 year old male POD#2 s/p CABGx3 [...] Attending Surgeon on rounds. Signed: STEPHANIE Iqbal [facility] Section of Cardiac Surgery Date: 07/09/2017 [...] when IABP d/c'ed. Gretchen Carolina, PT Pager [phone] Maddison Cee PA - 07/08/2017 11:27 AM EST Cardiac Surgery Progress Note: ID: [id number] 72 year old male POD#1 s/p CABGx3 [...] Attending Surgeon on rounds. Signed: STEPHANIE Iqbal [facility] Section of Cardiac Surgery Date: 07/08/2017 [...] in place in R femoral. No hematoma. METEOROLOGY FACULTY MEMBER- Intact Psych- Anxious Skin- Dry, no peripheral [...] intact. IABP in place in R femoral. METEOROLOGY FACULTY MEMBER- Intact Psych- Anxious Skin- Dry, no peripheral [...] Day 1 day ) Service: S2 ID: Gregroy Hoang is a 72 y.o. male with [...] note for details. DAPHNE SHAHID MD Pager [phone] Jet Mckenna MD - 07/05/2017 6:48 PM EST Preliminary Cardiac Catheterization Procedure Note: Procedure(s) performed: Left heart cath, IABP insertion Access: Right PICK OUT HAND-->8fr IABP A time-out was conducted prior to [...] effect. Heparin gtt maintained. Pt transferred to home performance laborer. documented in this encounter H&P Notes Daphne Shahid MD - 07/05/2017 6:08 PM EST CARDIOLOGY HISTORY & PHYSICAL EXAM Date of Admission: 07/05/2017 ( Hospital Day 0 days ) Responsible Attending: Daphne Shahid MD PCP: Lovely Vicente MD PCP#: [phone] Patient Active Problem List Diagnosis Code ??? [...] load with heparin drip and transferred to [facility]. While there, continued sob, question of chest pain. Stat TTE showing WMA diffusely and EF around 20%. No significant valvular disease. Taken to the home performance laborer urgently for ongoing STEMI. [facility] Labs: INR 1.0 WBC 5.88 [...] monitor I/O - s/p lasix in the home performance laborer, redose to aim net neg 1L [...] Medicine, PGY-2 Cardiology S1, Team Pager # [phone] CARDIOLOGY ATTENDING NOTE Patient: Gregory Hoang Date [...] amenable for PCI. DAPHNE SHAHID MD Pager [phone] documented in this encounter Miscellaneous Notes Consult Note - Daphne Shahid MD - 07/14/2017 11:46 AM EST Heart Failure Service Inpatient Consult Note Gregory Hoang Date of : 1945 Age: 72 y.o. Today's date: 07/14/17 PCP: Lovely Vicente MD HOTEL MAINTENANCE TECHNICIAN: None Place of Service: [facility] Reason for Consult: Dr. Webber has requested [...] has been initiated on Coumadin. Currently, Mr. Hoagn feels improved compared to admission; denies any [...] SETUP performed by Manny Mcknight MD at [facility] OR ??? PRO CABG, ARTERIAL, SINGLE N/A 07/07/2017 @CABG, USING ARTERIAL GRAFT;SINGLE ARTERIAL GRAFT (WRVU 33.75) performed by Yuan Webber MD at [facility] OR ??? PRO CABG, ARTERY-VEIN, TWO N/A 07/07/2017 @CABG, TWO VENOUS GRAFTS & ARTERIAL GRAFT (WRVU 7.93) performed by Yuan Webber MD at [facility] OR ??? PRO COLONOSCOPY, REMV LESN, SNARE 01/16/2014 COLONOSCOPY, POLYPECTOMY, REMOVAL LESION BY SNARE performed by Nohemi Jaimes MD at [facility] ENDOSCOPY ??? PRO ENDOSCOPY W/VIDEO-ASST VEIN HARVEST, CABG Right 07/07/2017 ENDOSCOPIC HARVEST VEIN(S) FOR CABG (WRVU 0.31) performed by Yuan Webber MD at [facility] OR ??? PRO THYROIDECTOMY 03/28/2013 THYROIDECTOMY, TOTAL OR COMPLETE performed by Manny Mcknight MD at [facility] OR Outpt Meds: Current Outpatient Prescriptions Medication [...] following studies: EKG 07/14/17: NSR 75 bpm, CLINICAL SPECIALIST MEDICAL DEVICE anterior infarct, LAD CXR 07/11/17: FINDINGS: Sternotomy wires. The patient has been extubated, left chest tube removed, and Crockett-Suzi catheter removed since the 07/07/2017 study. Atelectasis [...] was discussed with Zehra. Jaden Kelley MD Pest Control Service Representative Pager [phone] CARDIOLOGY ATTENDING NOTE Patient: Gregory Hoang Date [...] heart failure clinic. DAPHNE SHAHID MD Pager [phone] Plan of Care - Alden Chavarria PTA [...] home with assist Alden Chavarria PTA Pager: [phone] Inpatient Physical Therapy Problem: Acute Rehab Services [...] sit/sit to supine -- Bed Mobility Goal, [place] Level supervision required -- Bed Mobility Goal, [...] - 3 days -- Gait Training Goal, [place] Level supervision required -- Gait Training Goal, [...] days -- Transfer Training Goal, Activity Type oci-wg-gbnim/ljbgk-qu-azq;yzo-uf-vnovf/xricu-ho-fjh;toilet -- Transfer Train Goal, [place] Level supervision required -- Transfer Training Goal, [...] keeping present for 2 days per family. Property Investor noted of frustrations, house keeping sent to room. Patient offered showered twice, refused. at bedside, frustrated that shower not complete, informed that patient had refused several times. requesting to see CORRECTIONAL PROGRAM OFFICER, paged sent to Martha, will come to bedside (middle of consult). not willing to wait, Martha notified that family had gone home. Encouraged to come for morning rounds a t 8am. Diabetes team at bedside - insulin adjustments made. Call cabello in reach. Continue to monitor. PLAN MOVING FORWARD: Ambulate, dressing changes BID, Please change drsg at 4am per Martha CORRECTIONAL PROGRAM OFFICER request. INDIVIDUALIZED FALL PREVENTION INTERVENTIONS: Patient-specific fall [...] levels on the lower side, 60ml of [place] juice given after a FS of 80. [...] Conf 07/13/17 0502 Interdisciplinary Rounds/Family Conf Participants disability case manager;dietitian/nutrition services;nursing;occupational therapy;patient;pharmacy;physical therapy;physician Plan of [...] monitoring required during toileting and ADLs]: RN RESEARCH MICROBIOLOGIST Surveillance [continuous indirect monitoring]: Barrett Monitor CPG [...] Anticipated Discharge Disposition: home with assist Pager: [phone] CLARISSA SEGAL, PT 07/12/2017 Physical Therapy Rehabilitation [...] to sit/sit to supine Bed Mobility Goal, [place] Level supervision required Bed Mobility Goal, Additional Goal adheres to psternal precautions for transfer Goal: Gait Training Goal Stand Alone Therapy Goal Outcome: Ongoing (Interventions Implemented as Appropriate) 07/12/17 1225 Gait Training Goal Gait Training Goal, Date Established 07/12/17 Gait Training Goal, Time to Achieve 2 - 3 days Gait Training Goal, [place] Level supervision required Gait Training Goal, Assist [...] 3 days Transfer Training Goal, Activity Type ewd-bz-punlq/qdjok-je-wpd;rvl-jj-fdhaz/rqaql-no-bzy;toilet Transfer Train Goal, [place] Level supervision required Transfer Training Goal, Additional Goal adheres to sternal precautions during transfer Consult Note - Octavia Vaughn RN - 07/12/2017 10:50 AM EST [facility] CARDIAC REHABILITATION Gregory Hoang was seen today regarding participation in the outpatient Phase 2 Cardiac Rehabilitation at [facility]. The patient agrees to a [...] IV site, amio to other piv and CLINICAL SECRETARY at bedside to help assess, IV removed. [...] staff, he stood and marched in place. [place] weak, wanting to sit back down. Remained [...] Health/Prescription Coverage: Primary Insurance: MEDICARE Secondary Insurance: [id number] MD Prescription Coverage: yes Preferred Pharmacy: [facility] Other: none Primary Care Provider: Lovely Vicente MD [phone] Patient/Caregiver Goals of Treatment:live and get my breath back Potential Needs for Transition of Care: Rehab/SNF: [facility] Home Health: NA DME: TBD Dialysis: na Community Resources: available Transportation: yes Other: none Anticipated Barriers to Discharge/Special Considerations: none Plan: Likely SNF Rehab before home A member of the Care Management team will continue to monitor progress, follow for continuity of care and assist with transition of care planning. ERLIN Weiss Pager: [phone] Consult Note - Katerin Azul RN - [...] management and to provide a review of residential diabetes care. Diabetes History: Gregory Hoang has [...] potential to d/c gtt and start CF. 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 Monitoring - continue BG tid ac & hs Diet - low fat/low carb diet Exercise - weight-bearing exercise 30 min/day, as tolerated Thank you for allowing us to provide care for your patient W/E coverage, Dr. Jeane Tatum, pager [phone] Katerin Azul APRN Endocrinology Diabetes Management Pager [phone] Plan of Care - Stephanie Godyo, RN - 07/08/2017 6:54 AM EST Problem: [...] Webber MD - 07/07/2017 6:27 PM EST [facility] Patient Name: Gregory Hoang : [id number] MR#: [id number] Case Date: 07/07/2017 Surgeon: Surgeon(s) and Role: * Yuan Webber MD - Primary * Michael Drake PA - Physician Soda Clerk * Linda Flores PA - Physician Soda Clerk Preoperative diagnosis: 3VD Postoperative diagnosis: CAD, severe [...] Operative Note Patient Name: Gregory Hoang : [id number] MR#: [id number] Case Date: 07/07/2017 Surgeon: Surgeon(s) and Role: * Yuan Webber MD - Primary * Michael Drake PA - Physician Soda Clerk * Linda Flores PA - Physician Soda Clerk Preoperative diagnosis: 3VD Postoperative diagnosis: CAD, severe [...] (reference Cardiac: ACS (Acute Coronary Syndrome) (Adult) [facility] 07/07/17621 Cardiac: ACS (Acute Coronary Syndrome) Problems [...] major CV events such as , stroke, [place], repeat revascularization compared to PCI). In this [...] Hahn, MS3 [facility] [employer] [facility] Cardiology S1 (Pager [phone]) Plan of Care - Emelia Ibarra RN [...] hospital and ruled infor non-ST segment elevation OH. This almost certainly represents the residual of [...] SETUP performed by Manny Mcknight MD at [facility] MAIN OR ??? PRO COLONOSCOPY, REMV LESN, SNARE 01/16/2014 COLONOSCOPY, POLYPECTOMY, REMOVAL LESION BY SNARE performed by Nohemi Jaimes MD at [facility] ENDOSCOPY ??? PRO THYROIDECTOMY 03/28/2013 THYROIDECTOMY, TOTAL OR COMPLETE performed by Manny Mcknight MD at [facility] MAIN OR Social History: Social [...] with other involved physicians Yuan Webber MD [phone] Med Student Progress Note - Katty Hahn [...] major CV events such as , stroke, [place], repeat revascularization compared to PCI). 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 #Home Meds - continue levothyroxine 175mcg - CPAP at night ?? # Routine - DVT PPx: heparin drip - Diet: Healthy heart diet, NPO at midnight for CABG tomorrow - Code Status: FULL - Dispo: CVCC Katty Hahn, M3 [facility] Cardiology S1 (Pager [phone]) Plan of Care - Stephanie Godoy RN - 07/06/2017 5:00 AM EST Problem: Patient Care Overview Goal: Plan of Care Review 07/06/17 5556 Coping/Psychosocial Plan Of Care Reviewed With patient;family [...] in urinal without difficulty. 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 [...] Outcome: Ongoing (Interventions Implemented as Appropriate) 07/06/17 9206 Cardiac: ACS (Acute Coronary Syndrome) Problems Assessed [...] Liz Poole PA [facility] er Cardiology Dept [place], [place] [address] (Wo rk) 03/26/2022 Office Visit Cardiology Vitaliy Nobles MD [facility] ER CARDIOLOGY [place], [place] [address] (Wo rk) Scheduled Orders Name [...] procedure are i n the results section. DICTAPHONE TYPIST SCAN 07/15/2017 12:00 Res ults for this [...] Routine 07/08/2017 4:00 Results f or this ([facility]) AM EST procedure are i n the [...] Timed 07/06/2017 2:10 Results f or this ([facility]) PM EST procedure are i n the [...] section. TYPE AND SCREEN Routine 07/06/2017 12:00 ([facility]SHANDA) PM EST APTT STAT 07/06/2017 11:24 Results [...] Routine 07/06/2017 8:10 Results f or this ([facility]) AM EST procedure are i n the [...] Routine 07/05/2017 8:20 Results f or this ([facility]) PM EST procedure are i n the [...] Timed 07/05/2017 4:55 Results f or this ([facility]) PM EST procedure are i n the [...] Teague APRN IMG DX ORDERABLES SCAN DOC: DICTAPHONE TYPIST (07/15/2017 12:00 AM EST) Narrative 07/15/2017 12:00 [...] Signature POC Glucose 186 65 - 199 [facility] mg/dL [facility] Comment: Supplemental ranges: <140 mg/dL before meals <180 mg/dL all other times of the day Specimen Anatomical Collection Method Collection Time Receive d Time (Source) Location / / Volume Laterality Blood specimen 07/14/2017 11:56 7 (specimen) AM EST 11:56 AM EST Yuan Webber MD POINT OF CARE TEST ORDERABLE S Performing Organization Address City/State/ZIP Code Phon e Number [address] POCT Glucose (07/14/2017 7:52 AM EST) athologist Signature POC Glucose 126 65 - 199 [facility] mg/dL [facility] Comment: Supplemental ranges: <140 mg/dL before meals <180 mg/dL all other times of the day Specimen Anatomical Collection Method Collection Time Receive d Time (Source) Location / / Volume Laterality Blood specimen 07/14/2017 7:52 AM 017 7:52 (specimen) EST AM EST Yuan Webber MD POINT OF CARE TEST ORDERABLE S Performing Organization Address City/State/[place] [address] (ABNORMAL) Prothrombin Time (07/14/2017 [...] Resulting Agency Comment Spec In Lab Makayla Edcouch STACIE HEMATOLOGY ORDERABLES Performing Organization Address [facility] Code Phon e Number [address] Potassium (07/14/2017 4:46 AM EST) athologist [facility] Potassium 4.3 3.5 - 5.0 [facility] mmol/L [facility] Comment: Please note: ??Patients with WBC [...] Resulting Agency Comment Spec [facility]ABLES Performing Organization Address City/[facility] Phon e Number [address] POCT Glucose (07/14/2017 4:34 AM EST) athologist [facility] POC Glucose 115 65 - 199 [facility] mg/dL [facility] Comment: Supplemental ranges: <140 mg/dL before meals <180 mg/dL all other times of the day Specimen Anatomical Collection Method Collection Time Receive d Time (Source) Location / / Volume Laterality Blood specimen 07/14/2017 4:34 AM 017 4:34 (specimen) EST AM EST Yuan Webber MD POINT OF CARE TEST ORDERABLE S Performing Organization Address City/State/[place] [address] POCT Glucose (07/13/2017 11:33 PM EST) athologist Signature POC Glucose 132 65 - 199 [place] mg/dL [facility] Comment: Supplemental ranges: <140 mg/dL before meals <180 mg/dL all other times of the day Specimen Anatomical Collection Method Collection Time Receive d Time (Source) Location / / Volume Laterality Blood specimen 07/13/2017 11:33 7 (specimen) PM EST 11:33 PM EST Yuan Webber MD POINT OF CARE TEST ORDERABLE S Performing Organization Address City/State/[place] [address] POCT Glucose (07/13/2017 9:25 PM EST) athologist Signature POC Glucose 121 65 - 199 [place] mg/dL [facility] Comment: Supplemental ranges: <140 mg/dL before meals <180 mg/dL all other times of the day Specimen Anatomical Collection Method Collection Time Receive d Time (Source) Location / / Volume Laterality Blood specimen 07/13/2017 9:25 PM 017 9:25 (specimen) EST PM EST Yuan Webber MD POINT OF CARE TEST ORDERABLE S Performing Organization Address City/State/[place] [address] POCT Glucose (07/13/2017 4:55 PM EST) athologist Signature POC Glucose 79 65 - 199 [place] mg/dL [facility] Comment: Supplemental ranges: <140 mg/dL before meals <180 mg/dL all other times of the day Specimen Anatomical Collection Method Collection Time Receive d Time (Source) Location / / Volume Laterality Blood specimen 07/13/2017 4:55 PM 017 4:55 (specimen) EST PM EST Yuan Webber MD POINT OF CARE TEST ORDERABLE S Performing Organization Address City/[facility]/[place] [address] POCT Glucose (07/13/2017 11:16 AM EST) athologist Signature POC Glucose 163 65 - 199 [facility] mg/dL [facility] Comment: Supplemental ranges: <140 mg/dL before meals <180 mg/dL all other times of the day Specimen Anatomical Collection Method Collection Time Receive d Time (Source) Location / / Volume Laterality Blood specimen 07/13/2017 11:16 7 (specimen) AM EST 11:16 AM EST Yuan Webber MD POINT OF CARE TEST ORDERABLE S Performing Organization Address City/[facility]/[place] [address] POCT Glucose (07/13/2017 8:07 AM EST) athologist Signature POC Glucose 96 65 - 199 [facility] mg/dL [facility] Comment: Supplemental ranges: <140 mg/dL before meals <180 mg/dL all other times of the day Specimen Anatomical Collection Method Collection Time Receive d Time (Source) Location / / Volume Laterality Blood specimen 07/13/2017 8:07 AM 017 8:07 (specimen) EST AM EST Yuan Webber MD POINT OF CARE TEST ORDERABLE S Performing Organization Address City/State/[place] [address] (ABNORMAL) Prothrombin Time (07/13/2017 [...] Agency Comment Spec In Lab Makayla Wilson [employer] HEMATOLOGY ORDERABLES Performing Organization Address City/State/[place] [address] (ABNORMAL) Basic Metabolic Panel (non-fasting) (07/13/2017 4:26 AM EST) P athologist Signature Glucose Lvl 95 65 - 199 [facility] mg/dL [facility] Comment: Diabetes: >=200 mg/dL plus symp toms BUN 25 (H) 10 - 20 mg/dL [facility] Creatinine 1.19 0.80 - 1.50 mg/dL [facility] Sodium 143 135 - [...] - 15 mmol/L [facility] Calcium 7.7 (L) 8.5 - 10.5 mg/dL [facility] Estimated GFR 60 >=60 [facility] Comment: The reported eGFR should be multiplied b y 1.2 for patients. The MDRD is not an appropriate measure o f renal function for patients with body mass extremes or in patients with acute kidney failure. http://[email or web address]/DHnkdep http://[employer].com/DHMCnkf Specimen Anatomical Collection Method Collection Time Receive d Time (Source) Location / / Volume Laterality Blood specimen 07/13/2017 4:26 AM 017 4:46 (specimen) EST AM EST Resulting Agency Comment Spec In Lab Makayla Wilson APRN CHEMISTRY ORDERABLES Performing Organization Address City/State/ZIP Code Phon e Number [address] POCT Glucose (07/13/2017 3:52 AM EST) athologist Signature POC Glucose 93 65 - [address] [facility] Comment: Supplemental ranges: <140 mg/dL before meals <180 mg/dL all other times of the day Specimen Anatomical Collection Method Collection Time Receive d Time (Source) Location / / Volume Laterality Blood specimen 07/13/2017 3:52 AM 017 3:52 (specimen) EST AM EST Yuan Webber MD POINT OF CARE TEST ORDERABLE S Performing Organization Address City/[facility]/ZIP Code Phon e Number [address] POCT Glucose (07/13/2017 12:21 AM EST) athologist Signature POC Glucose 80 65 - [address] [facility] Comment: Supplemental ranges: <140 mg/dL before meals <180 mg/dL all other times of the day Specimen Anatomical Collection Method Collection Time Receive d Time (Source) Location / / Volume Laterality Blood specimen 07/13/2017 12:21 7 (specimen) AM EST 12:21 AM EST Yuan Webber MD POINT OF CARE TEST ORDERABLE S Performing Organization Address City/[facility]/ZIP Code Phon e Number [address] POCT Glucose (07/12/2017 8:22 PM EST) athologist Signature POC Glucose 119 65 - 199 [place] mg/dL [facility] Comment: Supplemental ranges: <140 mg/dL before meals <180 mg/dL all other times of the day Specimen Anatomical Collection Method Collection Time Receive d Time (Source) Location / / Volume Laterality Blood specimen 07/12/2017 8:22 PM 017 8:22 (specimen) EST PM EST Yuan Webber MD POINT OF CARE TEST ORDERABLE S Performing Organization Address City/State/ZIP Code Phon e Number [address] POCT Glucose (07/12/2017 4:02 PM EST) athologist Signature POC Glucose 114 65 - 199 [facility] mg/dL [facility] Comment: Supplemental ranges: <140 mg/dL before meals <180 mg/dL all other times of the day Specimen Anatomical Collection Method Collection Time Receive d Time (Source) Location / / Volume Laterality Blood specimen 07/12/2017 4:02 PM 017 4:02 (specimen) EST PM EST Yuan Webber MD POINT OF CARE TEST ORDERABLE S Performing Organization Address City/State/ZIP Code Phon e Number [address] POCT Glucose (07/12/2017 11:28 AM EST) athologist Signature POC Glucose 164 65 - 199 [facility] SU mg/dL [facility] Comment: Supplemental ranges: <140 mg/dL before meals <180 mg/dL all other times of the day Specimen Anatomical Collection Method Collection Time Receive d Time (Source) Location / / Volume Laterality Blood specimen 07/12/2017 11:28 7 (specimen) AM EST 11:28 AM EST Yuan Webber MD POINT OF CARE TEST ORDERABLE S Performing Organization Address City/State/ZIP Code Phon e Number [address] POCT Glucose (07/12/2017 7:34 AM EST) athologist Signature POC Glucose 109 65 - 199 [place] mg/dL [facility] Comment: Supplemental ranges: <140 mg/dL before meals <180 mg/dL all other times of the day Specimen Anatomical Collection Method Collection Time Receive d Time (Source) Location / / Volume Laterality Blood specimen 07/12/2017 7:34 AM 017 7:34 (specimen) EST AM EST Yuan Webber MD POINT OF CARE TEST ORDERABLE S Performing Organization Address City/State/[place] [address] (ABNORMAL) Basic Metabolic Panel (non-fasting) (07/12/2017 4:11 AM EST) P athologist Signature Glucose Lvl 92 65 - 199 [facility] mg/dL [facility] Comment: Diabetes: >=200 mg/dL plus symp toms BUN 31 (H) 10 - 20 mg/dL [facility] Creatinine 1.23 0.80 - 1.50 mg/dL [facility] [...] Gap Not Calculated 5 - 15 mmol/L [facility] Calcium 8.1 (L) 8.5 - 10.5 mg/dL [facility] Estimated GFR 58 (L) >=60 [facility] Comment: The reported eGFR should be multiplied b y 1.2 for patients. The MDRD is not an appropriate measure o f renal function for patients with body mass extremes or in patients with acute kidney failure. http://[employer]azz[employer]/DHnkdep http://[employer]/DHMCnkf Specimen Anatomical Collection Method Collection Time Receive d Time (Source) Location / / Volume Laterality Blood specimen 07/12/2017 4:11 AM 017 8:57 (specimen) EST AM EST Resulting Agency Comment Spec In Lab Makayla [facility] CHEMISTRY ORDERABLES Performing Organization Address [facility] [place] [address] (ABNORMAL) Prothrombin Time (07/12/2017 [...] Resulting Agency Comment Spec In Lab Makayla [facility] HEMATOLOGY ORDERABLES Performing Organization Address City/[facility] [place] [address] Potassium (07/12/2017 4:11 AM EST) P athologist Signature Potassium 3.8 3.5 - 5.0 [facility] mmol/L [facility] Comment: Please note: ??Patients with WBC [...] Wilson APRN CHEMISTRY ORDERABLES Performing Organization Address City/[facility]/ZIP Code Phon e Number [address] POCT Glucose (07/12/2017 4:10 AM EST) athologist Signature POC Glucose 90 65 - 199 [place] mg/dL [facility] Comment: Supplemental ranges: <140 mg/dL before meals <180 mg/dL all other times of the day Specimen Anatomical Collection Method Collection Time Receive d Time (Source) Location / / Volume Laterality Blood specimen 07/12/2017 4:10 AM 017 4:10 (specimen) EST AM EST Yuan Webber MD POINT OF CARE TEST ORDERABLE S Performing Organization Address City/[facility]/ZIP Code Phon e Number [address] POCT Glucose (07/11/2017 11:57 PM EST) athologist Signature POC Glucose 98 65 - 199 [place] mg/dL [facility] Comment: Supplemental ranges: <140 mg/dL before meals <180 mg/dL all other times of the day Specimen Anatomical Collection Method Collection Time Receive d Time (Source) Location / / Volume Laterality Blood specimen 07/11/2017 11:57 7 (specimen) PM EST 11:57 PM EST Yuan Webber MD POINT OF CARE TEST ORDERABLE S Performing Organization Address City/[facility]/ZIP Code Phon e Number [address] POCT Glucose (07/11/2017 8:32 PM EST) athologist Signature POC Glucose 146 65 - 199 [facility] SU mg/dL [facility] Comment: Supplemental ranges: <140 mg/dL before meals <180 mg/dL all other times of the day Specimen Anatomical Collection Method Collection Time Receive d Time (Source) Location / / Volume Laterality Blood specimen 07/11/2017 8:32 PM 017 8:32 (specimen) EST PM EST Yuan Webber MD POINT OF CARE TEST ORDERABLE S Performing Organization Address City/State/[place] [address] XR Chest PA & [...] e xtubated, left chest tube removed, and Crockett-Suzi catheter removed since the study. Atelectasis at [...] e xtubated, left chest tube removed, and Crockett-Suzi catheter removed since the study. Atelectasis at [...] (H) 65 - 199 [place] mg/dL [facility] Comment: Supplemental ranges: <140 mg/dL before meals <180 mg/dL all other times of the day Specimen Anatomical Collection Method Collection Time Receive d Time (Source) Location / / Volume Laterality Blood specimen 07/11/2017 4:05 PM 017 4:05 (specimen) EST PM EST Yuan Webber MD POINT OF CARE TEST ORDERABLE S Performing Organization Address City/State/[place] [address] POCT Glucose (07/11/2017 11:55 AM EST) athologist Signature POC Glucose 176 65 - 199 [place] mg/dL [facility] Comment: Supplemental ranges: <140 mg/dL before meals <180 mg/dL all other times of the day Specimen Anatomical Collection Method Collection Time Receive d Time (Source) Location / / Volume Laterality Blood specimen 07/11/2017 11:55 7 (specimen) AM EST 11:55 AM EST Yuan Webber MD POINT OF CARE TEST ORDERABLE S Performing Organization Address City/State/[place] [address] POCT Glucose (07/11/2017 7:53 AM EST) athologist Signature POC Glucose 189 65 - 199 [place] mg/dL [facility] Comment: Supplemental ranges: <140 mg/dL before meals <180 mg/dL all other times of the day Specimen Anatomical Collection Method Collection Time Receive d Time (Source) Location / / Volume Laterality Blood specimen 07/11/2017 7:53 AM 017 7:53 (specimen) EST AM EST Yuan Webber MD POINT OF CARE TEST ORDERABLE S Performing Organization Address City/State/ZIP Code Phon e Number [address] POCT Glucose (07/11/2017 4:22 AM EST) athologist Signature POC Glucose 151 65 - 199 [place] mg/dL [facility] Comment: Supplemental ranges: <140 mg/dL before meals <180 mg/dL all other times of the day Specimen Anatomical Collection Method Collection Time Receive d Time (Source) Location / / Volume Laterality Blood specimen 07/11/2017 4:22 AM 017 4:22 (specimen) EST AM EST Yuan Webber MD POINT OF CARE TEST ORDERABLE S Performing Organization Address City/[facility]/[place] [address] Potassium (07/11/2017 2:20 AM EST) P athologist Signature Potassium 4.5 3.5 - 5.0 [facility] mmol/L [facility] Comment: Please note: ??Patients with WBC [...] Webber MD CHEMISTRY ORDERABLES Performing Organization Address City/[facility]/ZIP Code Phon e Number [address] POCT Glucose (07/11/2017 12:17 AM EST) P athologist Signature POC Glucose 162 65 - [facility] Comment: Supplemental ranges: <140 mg/dL before meals <180 mg/dL all other times of the day Specimen Anatomical Collection Method Collection Time Receive d Time (Source) Location / / Volume Laterality Blood specimen 07/11/2017 12:17 7 (specimen) AM EST 12:17 AM EST Yuan Webber MD POINT OF CARE TEST ORDERABLE S Performing Organization Address City/[facility]/[place] [address] POCT Glucose (07/10/2017 8:47 PM EST) athologist Signature POC Glucose 191 65 - 199 [place] mg/dL [facility] Comment: Supplemental ranges: <140 mg/dL before meals <180 mg/dL all other times of the day Specimen Anatomical Collection Method Collection Time Receive d Time (Source) Location / / Volume Laterality Blood specimen 07/10/2017 8:47 PM 017 8:47 (specimen) EST PM EST Yuan Webber MD POINT OF CARE TEST ORDERABLE S Performing Organization Address City/State/ZIP Code Phon e Number [address] POCT Glucose (07/10/2017 4:06 PM EST) athologist Signature POC Glucose 131 65 - 199 [place] mg/dL [facility] Comment: Supplemental ranges: <140 mg/dL before meals <180 mg/dL all other times of the day Specimen Anatomical Collection Method Collection Time Receive d Time (Source) Location / / Volume Laterality Blood specimen 07/10/2017 4:06 PM 017 4:06 (specimen) EST PM EST Yuan Webber MD POINT OF CARE TEST ORDERABLE S Performing Organization Address City/State/ZIP Code Phon e Number [address] POCT Glucose (07/10/2017 3:08 PM EST) athologist Signature POC Glucose 151 65 - 199 [place] mg/dL [facility] Comment: Supplemental ranges: <140 mg/dL before meals <180 mg/dL all other times of the day Specimen Anatomical Collection Method Collection Time Receive d Time (Source) Location / / Volume Laterality Blood specimen 07/10/2017 3:08 PM 017 3:08 (specimen) EST PM EST Yuan Webber MD POINT OF CARE TEST ORDERABLE S Performing Organization Address City/State/ZIP Code Phon e Number [address] POCT Glucose (07/10/2017 2:25 PM EST) athologist Signature POC Glucose 146 65 - 199 [place] mg/dL [facility] Comment: Supplemental ranges: <140 mg/dL before meals <180 mg/dL all other times of the day Specimen Anatomical Collection Method Collection Time Receive d Time (Source) Location / / Volume Laterality Blood specimen 07/10/2017 2:25 PM 017 2:25 (specimen) EST PM EST Yuan Webber MD POINT OF CARE TEST ORDERABLE S Performing Organization Address City/State/ZIP Code Phon e Number [address] POCT Glucose (07/10/2017 1:23 PM EST) athologist Signature POC Glucose 166 65 - 199 [place] mg/dL [facility] Comment: Supplemental ranges: <140 mg/dL before meals <180 mg/dL all other times of the day Specimen Anatomical Collection Method Collection Time Receive d Time (Source) Location / / Volume Laterality Blood specimen 07/10/2017 1:23 PM 017 1:23 (specimen) EST PM EST Yuan Webber MD POINT OF CARE TEST ORDERABLE S Performing Organization Address City/State/ZIP Code Phon e Number [address] POCT Glucose (07/10/2017 11:52 AM EST) athologist Signature POC Glucose 157 65 - 199 [place] mg/dL [facility] Comment: Supplemental ranges: <140 mg/dL before meals <180 mg/dL all other times of the day Specimen Anatomical Collection Method Collection Time Receive d Time (Source) Location / / Volume Laterality Blood specimen 07/10/2017 11:52 7 (specimen) AM EST 11:52 AM EST Yuan Webber MD POINT OF CARE TEST ORDERABLE S Performing Organization Address City/State/ZIP Code Phon e Number [address] POCT Glucose (07/10/2017 11:01 AM EST) athologist Signature POC Glucose 158 65 - 199 [place] mg/dL [facility] Comment: Supplemental ranges: <140 mg/dL before meals <180 mg/dL all other times of the day Specimen Anatomical Collection Method Collection Time Receive d Time (Source) Location / / Volume Laterality Blood specimen 07/10/2017 11:01 7 (specimen) AM EST 11:01 AM EST Yuan Webber MD POINT OF CARE TEST ORDERABLE S Performing Organization Address City/State/ZIP Code Phon e Number [address] POCT Glucose (07/10/2017 9:54 AM EST) P athologist Signature POC Glucose 160 65 - 199 [place] mg/dL [facility] Comment: Supplemental ranges: <140 mg/dL before meals <180 mg/dL all other times of the day Specimen Anatomical Collection Method Collection Time Receive d Time (Source) Location / / Volume Laterality Blood specimen 07/10/2017 9:54 AM 017 9:54 (specimen) EST AM EST Yuan Webber MD POINT OF CARE TEST ORDERABLE S Performing Organization Address City/State/ZIP Code Phon e Number [address] POCT Glucose (07/10/2017 8:58 AM EST) P athologist Signature POC Glucose 183 65 - 199 [place] mg/dL [facility] Comment: Supplemental ranges: <140 mg/dL before meals <180 mg/dL all other times of the day Specimen Anatomical Collection Method Collection Time Receive d Time (Source) Location / / Volume Laterality Blood specimen 07/10/2017 8:58 AM 017 8:58 (specimen) EST AM EST Yuan Webber MD POINT OF CARE TEST ORDERABLE S Performing Organization Address City/State/ZIP Code Phon e Number [address] POCT Glucose (07/10/2017 8:01 AM EST) P athologist Signature POC Glucose 173 65 - 199 [place] mg/dL [facility] Comment: Supplemental ranges: <140 mg/dL before meals <180 mg/dL all other times of the day Specimen Anatomical Collection Method Collection Time Receive d Time (Source) Location / / Volume Laterality Blood specimen 07/10/2017 8:01 AM 017 8:01 (specimen) EST AM EST Yuan Webber MD POINT OF CARE TEST ORDERABLE S Performing Organization Address City/[facility]/ZIP Code Phon e Number [address] POCT Glucose (07/10/2017 7:05 AM EST) P athologist Signature POC Glucose 166 65 - 199 [facility] Comment: Supplemental ranges: <140 mg/dL before meals <180 mg/dL all other times of the day Specimen Anatomical Collection Method Collection Time Receive d Time (Source) Location / / Volume Laterality Blood specimen 07/10/2017 7:05 AM 017 7:05 (specimen) EST AM EST Yuan Webber MD POINT OF CARE TEST ORDERABLE S Performing Organization Address City/[facility]/ZIP Code Phon e Number [address] POCT Glucose (07/10/2017 6:00 AM EST) athologist Signature POC Glucose 162 65 - 199 [facility] Comment: Supplemental ranges: <140 mg/dL before meals <180 mg/dL all other times of the day Specimen Anatomical Collection Method Collection Time Receive d Time (Source) Location / / Volume Laterality Blood specimen 07/10/2017 6:00 AM 017 6:00 (specimen) EST AM EST Yuan Webber MD POINT OF CARE TEST ORDERABLE S Performing Organization Address City/State/ZIP Code Phon e Number [address] (ABNORMAL) Differential, Automated (07/10/2017 4:28 AM EST) [facility] gist Method Time Signature Neutrophils % 87.9 % [facility] LABORATORY Neutr Abs (ANC) 10.70 (H) 1.70 - [facility] 6.10 [facility] x10(3)/[facility] L LABORATORY Lymphocytes % 3.9 % [facility] LABORATORY Lymphocytes Abs 0.5 (L) 0.9 - 3.2 [facility] x10(3)/[facility] LABORATORY Monocytes % 7.0 % [facility] LABORATORY Monocyte Abs 0.8 0.3 - 0.9 [facility] x10(3)/[facility] LABORATORY Eosinophils % 0.3 % [facility]ORY Eosinophils Abs 0.0 0.0 - 0.4 [facility] x10(3)/[facility] LABORATORY Basophils % 0.2 % [facility] LABORATORY Basophils Abs 0.0 0.0 - 0.1 [facility] x10(3)/[facility] LABORATORY Immature Gran % 0.70 % [...] Gran Abs 0.08 (H) 0.00 - 0.04 x10(3)/[facility] LABORATORY Specimen Anatomical Collection Method Collection Time Receive d Time (Source) Location / / Volume Laterality Blood specimen 07/10/2017 4:28 AM 017 4:36 (specimen) EST AM EST Resulting Agency Comment Spec In Lab Yuan Webber MD HEMATOLOGY ORDERABLES Performing Organization Address City/State/[place] [address] (ABNORMAL) Hemogram (07/10/2017 4:28 AM EST) Analysis Performed At Patho logist Time Signature WBC 12.2 (H) 4.0 - 9.5 [facility] x10(3)/[facility] LABORATORY RBC 3.31 (L) 4.58 - [facility] 5.54 [facility] x10(6)/[facility] LABORATORY Hemoglobin 9.8 (L) 13.7 - [place] 16.5 gm/dL [facility] Hematocrit 30.0 (L) 40.5 - [place] 48.5 % [facility] MCV 90.6 82.9 - [facility] 93.1 [facility] LABORATORY MCH 29.6 27.5 - [place] 32.1 pg [facility] MCHC 32.7 32.0 - [place] 35.7 gm/dL [facility] Platelets 135 (L) 145 - 357 [facility] x10(3)/[facility] LABORATORY RDWSD 50.8 (H) 36.0 - [facility] 45.0 [facility] LABORATORY RDWCV 15.4 (H) 11.4 - [facility] 13.8 % [facility] MPV 10.0 7.6 - 12.9 [facility] LABORATORY nRBC % Auto 0.0 % [facility] nRBC Abs Auto 0.000 0.000 - [facility] 0.000 [facility] x10(3)/[facility] LABORATORY Specimen Anatomical Collection Method Collection Time Receive d Time (Source) Location / / Volume Laterality Blood specimen 07/10/2017 4:28 AM 017 4:36 (specimen) EST AM EST Resulting Agency Comment Spec In Lab Yuan Webber MD HEMATOLOGY ORDERABLES Performing Organization Address City/State/[place] [address] (ABNORMAL) Basic Metabolic Panel (non-fasting) (07/10/2017 4:28 AM EST) P athologist Signature Glucose Lvl 178 65 - 199 [facility] mg/dL [facility] Comment: Diabetes: >=200 mg/dL plus symp toms BUN 20 10 - 20 mg/dL [facility]ORY Creatinine 1.19 0.80 - 1.50 mg/dL [facility] LABORATORY Sodium 143 135 - [...] - 15 mmol/L [facility]ORY Calcium 7.4 (L) 8.5 - 10.5 mg/dL [facility] LABORATORY Estimated GFR 60 >=60 [facility] Comment: The reported eGFR should be multiplied b y 1.2 for patients. The MDRD is not an appropriate measure o f renal function for patients with body mass extremes or in patients with acute kidney failure. http://[email or web address] http://[email or web address] Specimen Anatomical Collection Method Collection Time Receive d Time (Source) Location / / Volume Laterality Blood specimen 07/10/2017 4:28 AM 017 4:36 (specimen) EST AM EST Resulting Agency Comment Spec In Lab Yuan Webber MD CHEMISTRY ORDERABLES Performing Organization Address City/[facility]/ZIP Code Phon e Number [address] POCT Glucose (07/10/2017 4:26 AM EST) athologist Signature POC Glucose 176 65 - 199 [facility] mg/dL [facility] Comment: Supplemental ranges: <140 mg/dL before meals <180 mg/dL all other times of the day Specimen Anatomical Collection Method Collection Time Receive d Time (Source) Location / / Volume Laterality Blood specimen 07/10/2017 4:26 AM 017 4:26 (specimen) EST AM EST Yuan Webber MD POINT OF CARE TEST ORDERABLE S Performing Organization Address City/[facility]/[place] [address] (ABNORMAL) POCT Glucose (07/10/2017 3:06 AM EST) athologist Signature POC Glucose 204 (H) 65 - 199 [facility] SU mg/dL [facility] Comment: Supplemental ranges: <140 mg/dL before meals <180 mg/dL all other times of the day Specimen Anatomical Collection Method Collection Time Receive d Time (Source) Location / / Volume Laterality Blood specimen 07/10/2017 3:06 AM 017 3:06 (specimen) EST AM EST Yuan Webber MD POINT OF CARE TEST ORDERABLE S Performing Organization Address City/State/[place] [address] (ABNORMAL) POCT Glucose (07/10/2017 2:10 AM EST) athologist Signature POC Glucose 203 (H) 65 - [address] [facility] Comment: Supplemental ranges: <140 mg/dL before meals <180 mg/dL all other times of the day Specimen Anatomical Collection Method Collection Time Receive d Time (Source) Location / / Volume Laterality Blood specimen 07/10/2017 2:10 AM 017 2:10 (specimen) EST AM EST Yuan Webber MD POINT OF CARE TEST ORDERABLE S Performing Organization Address City/State/[place] [address] POCT Glucose (07/10/2017 1:09 AM EST) athologist Signature POC Glucose 196 65 - [address] [facility] Comment: Supplemental ranges: <140 mg/dL before meals <180 mg/dL all other times of the day Specimen Anatomical Collection Method Collection Time Receive d Time (Source) Location / / Volume Laterality Blood specimen 07/10/2017 1:09 AM 017 1:09 (specimen) EST AM EST Yuan Webber MD POINT OF CARE TEST ORDERABLE S Performing Organization Address City/State/[place] [address] POCT Glucose (07/10/2017 12:10 AM EST) athologist Signature POC Glucose 173 65 - 199 [place] mg/dL [facility] Comment: Supplemental ranges: <140 mg/dL before meals <180 mg/dL all other times of the day Specimen Anatomical Collection Method Collection Time Receive d Time (Source) Location / / Volume Laterality Blood specimen 07/10/2017 12:10 7 (specimen) AM EST 12:10 AM EST Yuan Webber MD POINT OF CARE TEST ORDERABLE S Performing Organization Address City/State/ZIP Code Phon e Number [address] POCT Glucose (07/09/2017 11:01 PM EST) athologist Signature POC Glucose 140 65 - 199 [place] mg/dL [facility] Comment: Supplemental ranges: <140 mg/dL before meals <180 mg/dL all other times of the day Specimen Anatomical Collection Method Collection Time Receive d Time (Source) Location / / Volume Laterality Blood specimen 07/09/2017 11:01 7 (specimen) PM EST 11:01 PM EST Yuan Webber MD POINT OF CARE TEST ORDERABLE S Performing Organization Address City/State/ZIP Code Phon e Number [address] POCT Glucose (07/09/2017 10:05 PM EST) athologist Signature POC Glucose 144 65 - 199 [place] mg/dL [facility] Comment: Supplemental ranges: <140 mg/dL before meals <180 mg/dL all other times of the day Specimen Anatomical Collection Method Collection Time Receive d Time (Source) Location / / Volume Laterality Blood specimen 07/09/2017 10:05 7 (specimen) PM EST 10:05 PM EST Yuan Webber MD POINT OF CARE TEST ORDERABLE S Performing Organization Address City/State/ZIP Code Phon e Number [address] POCT Glucose (07/09/2017 9:31 PM EST) athologist Signature POC Glucose 121 65 - 199 [place] mg/dL [facility] Comment: Supplemental ranges: <140 mg/dL before meals <180 mg/dL all other times of the day Specimen Anatomical Collection Method Collection Time Receive d Time (Source) Location / / Volume Laterality Blood specimen 07/09/2017 9:31 PM 017 9:31 (specimen) EST PM EST Yuan Webber MD POINT OF CARE TEST ORDERABLE S Performing Organization Address City/State/ZIP Code Phon e Number [address] POCT Glucose (07/09/2017 9:03 PM EST) athologist Signature POC Glucose 98 65 - 199 [place] mg/dL [facility] Comment: Supplemental ranges: <140 mg/dL before meals <180 mg/dL all other times of the day Specimen Anatomical Collection Method Collection Time Receive d Time (Source) Location / / Volume Laterality Blood specimen 07/09/2017 9:03 PM 017 9:03 (specimen) EST PM EST Yuan Webber MD POINT OF CARE TEST ORDERABLE S Performing Organization Address City/State/ZIP Code Phon e Number [address] POCT Glucose (07/09/2017 8:09 PM EST) athologist Signature POC Glucose 117 65 - 199 [facility] SU mg/dL [facility] Comment: Supplemental ranges: <140 mg/dL before meals <180 mg/dL all other times of the day Specimen Anatomical Collection Method Collection Time Receive d Time (Source) Location / / Volume Laterality Blood specimen 07/09/2017 8:09 PM 017 8:09 (specimen) EST PM EST Yuan Webber MD POINT OF CARE TEST ORDERABLE S Performing Organization Address City/State/ZIP Code Phon e Number [address] POCT Glucose (07/09/2017 5:40 PM EST) athologist Signature POC Glucose 155 65 - 199 [place] mg/dL [facility] Comment: Supplemental ranges: <140 mg/dL before meals <180 mg/dL all other times of the day Specimen Anatomical Collection Method Collection Time Receive d Time (Source) Location / / Volume Laterality Blood specimen 07/09/2017 5:40 PM 017 5:40 (specimen) EST PM EST Yuan Webber MD POINT OF CARE TEST ORDERABLE S Performing Organization Address City/State/ZIP Code Phon e Number [address] POCT Glucose (07/09/2017 4:24 PM EST) athologist Signature POC Glucose 164 65 - 199 [facility] SU mg/dL [facility] Comment: Supplemental ranges: <140 mg/dL before meals <180 mg/dL all other times of the day Specimen Anatomical Collection Method Collection Time Receive d Time (Source) Location / / Volume Laterality Blood specimen 07/09/2017 4:24 PM 017 4:24 (specimen) EST PM EST Yuan Webber MD POINT OF CARE TEST ORDERABLE S Performing Organization Address City/State/ZIP Code Phon e Number [address] POCT Glucose (07/09/2017 3:19 PM EST) athologist Signature POC Glucose 166 65 - 199 [place] mg/dL [facility] Comment: Supplemental ranges: <140 mg/dL before meals <180 mg/dL all other times of the day Specimen Anatomical Collection Method Collection Time Receive d Time (Source) Location / / Volume Laterality Blood specimen 07/09/2017 3:19 PM 017 3:19 (specimen) EST PM EST Yuan Webber MD POINT OF CARE TEST ORDERABLE S Performing Organization Address City/State/ZIP Code Phon e Number [address] POCT Glucose (07/09/2017 2:26 PM EST) athologist Signature POC Glucose 179 65 - 199 [facility] SU mg/dL [facility] Comment: Supplemental ranges: <140 mg/dL before meals <180 mg/dL all other times of the day Specimen Anatomical Collection Method Collection Time Receive d Time (Source) Location / / Volume Laterality Blood specimen 07/09/2017 2:26 PM 017 2:26 (specimen) EST PM EST Yuan Webber MD POINT OF CARE TEST ORDERABLE S Performing Organization Address City/State/[place] [address] (ABNORMAL) POCT Glucose (07/09/2017 1:29 PM EST) P athologist Signature POC Glucose 210 (H) 65 - 199 [place] mg/dL [facility] Comment: Supplemental ranges: <140 mg/dL before meals <180 mg/dL all other times of the day Specimen Anatomical Collection Method Collection Time Receive d Time (Source) Location / / Volume Laterality Blood specimen 07/09/2017 1:29 PM 017 1:29 (specimen) EST PM EST Yuan Webber MD POINT OF CARE TEST ORDERABLE S Performing Organization Address City/State/[place] [address] POCT Glucose (07/09/2017 12:20 PM EST) P athologist Signature POC Glucose 172 65 - 199 [place] mg/dL [facility] Comment: Supplemental ranges: <140 mg/dL before meals <180 mg/dL all other times of the day Specimen Anatomical Collection Method Collection Time Receive d Time (Source) Location / / Volume Laterality Blood specimen 07/09/2017 12:20 7 (specimen) PM EST 12:20 PM EST Yuan Webber MD POINT OF CARE TEST ORDERABLE S Performing Organization Address City/State/[place] [address] POCT Glucose (07/09/2017 11:24 AM EST) P athologist Signature POC Glucose 156 65 - 199 [place] mg/dL [facility] Comment: Supplemental ranges: <140 mg/dL before meals <180 mg/dL all other times of the day Specimen Anatomical Collection Method Collection Time Receive d Time (Source) Location / / Volume Laterality Blood specimen 07/09/2017 11:24 7 (specimen) AM EST 11:24 AM EST Yuan Webber MD POINT OF CARE TEST ORDERABLE S Performing Organization Address City/State/ZIP Code Phon e Number [address] POCT Glucose (07/09/2017 11:11 AM EST) P athologist Signature POC Glucose 172 65 - 199 [place] mg/dL [facility] Comment: Supplemental ranges: <140 mg/dL before meals <180 mg/dL all other times of the day Specimen Anatomical Collection Method Collection Time Receive d Time (Source) Location / / Volume Laterality Blood specimen 07/09/2017 11:11 7 (specimen) AM EST 11:11 AM EST Yuan Webber MD POINT OF CARE TEST ORDERABLE S Performing Organization Address City/State/ZIP Code Phon e Number [address] POCT Glucose (07/09/2017 10:08 AM EST) athologist Signature POC Glucose 176 65 - 199 [place] mg/dL [facility] Comment: Supplemental ranges: <140 mg/dL before meals <180 mg/dL all other times of the day Specimen Anatomical Collection Method Collection Time Receive d Time (Source) Location / / Volume Laterality Blood specimen 07/09/2017 10:08 7 (specimen) AM EST 10:08 AM EST Yuan Webber MD POINT OF CARE TEST ORDERABLE S Performing Organization Address City/State/ZIP Code Phon e Number [address] POCT Glucose (07/09/2017 8:02 AM EST) athologist Signature POC Glucose 178 65 - 199 [facility] SU mg/dL [facility] Comment: Supplemental ranges: <140 mg/dL before meals <180 mg/dL all other times of the day Specimen Anatomical Collection Method Collection Time Receive d Time (Source) Location / / Volume Laterality Blood specimen 07/09/2017 8:02 AM 017 8:02 (specimen) EST AM EST Yuan Webber MD POINT OF CARE TEST ORDERABLE S Performing Organization Address City/State/[place] [address] (ABNORMAL) BLOOD GAS 2 ARTERIAL (07/09/2017 5:37 AM EST) Analysis Performed At Patho logist Time Signature pH Art 7.36 7.35 - [facility] 7.45 [facility] pCO2 Art 38 35 - 45 [facility] mmHg [facility] pO2 Art 79 (L) 85 - 104 [facility] LABORATORY HCO3 Art 20.9 20.0 - [facility] 26.0 [facility] mmol/L [facility] LAB[facility] BE Art -4.6 (L) -3.0 - 3.0 [facility] mmol/L [facility] Hgb Blood Gas 10.5 (L) 13.7 - [facility] 16.5 gm/dL [facility] O2HB Art 93.8 (L) 94.0 - [facility] 97.0 % [facility] COHB Art 0.3 % [facility] Comment: Nonsmokers: 0.5-1.5% COHB Smokers: Variable, but usually less than 10% Toxic: 20-30% COHB Lethal: Greater than 60% COHB METHB Art 0.6 <=1.5 % [facility] Na Whole Blood 141 135 [...] Blood 113 (H) 98 - 107 mmol/L [facility] Gluc Whole Bld 175 65 - 199 mg/dL [facility] Comment: Diabetes: >=200 mg/dL plus symp toms. Lactate WB 1.0 0.5 - 2.2 mmol/L [facility] FIO2 Art 40 % [facility] PF Ratio Art 198 [facility] LABOR[facility]ORY Specimen Anatomical Collection Method Collection Time Receive d Time (Source) Location / / Volume Laterality Blood specimen 07/09/2017 5:37 AM 017 5:37 (specimen) EST AM EST Yuan Webber MD CHEMISTRY ORDERABLES Performing Organization Address [facility] Phon e Number [address] POCT Glucose (07/09/2017 3:27 AM EST) athologist Signature POC Glucose 192 65 - 199 [facility] mg/dL [facility] Comment: Supplemental ranges: <140 mg/dL before meals <180 mg/dL all other times of the day Specimen Anatomical Collection Method Collection Time Receive d Time (Source) Location / / Volume Laterality Blood specimen 07/09/2017 3:27 AM 017 3:27 (specimen) EST AM EST Yuan Webber MD POINT OF CARE TEST ORDERABLE S Performing Organization Address City/[facility]/ZIP Code Phon e Number [address] (ABNORMAL) Basic Metabolic Panel (non-fasting) (07/09/2017 2:30 AM EST) athologist Signature Glucose Lvl 179 65 - 199 [facility] mg/dL [facility] Comment: Diabetes: >=200 mg/dL plus symp toms BUN 17 10 - 20 mg/dL [facility] Creatinine 1.34 0.80 - 1.50 mg/dL [facility] Sodium 144 135 - [...] - 15 mmol/L [facility] Calcium 7.1 (L) 8.5 - 10.5 mg/dL [facility] Comment: result [id number] Estimated GFR 53 (L) >=60 [facility] Comment: The reported eGFR should be multiplied b y 1.2 for patients. The MDRD is not an appropriate measure o f renal function for patients with body mass extremes or in patients with acute kidney failure. http://[email or web address] http://[email or web address]/DHMCnkf Specimen Anatomical Collection Method Collection Time Receive d Time (Source) Location / / Volume Laterality Blood specimen Venous Draw / 07/09/2017 2:30 AM 2016 2:42 (specimen) Unknown EST AM EST Resulting Agency Comment Spec In Lab Yuan Webber MD CHEMISTRY ORDERABLES Performing Organization Address City/State/[place] [address] (ABNORMAL) Potassium (07/09/2017 2:30 AM EST) P athologist Signature Potassium 5.1 (H) 3.5 - 5.0 [facility] mmol/L [facility] Comment: Please note: ??Patients with WBC [...] Organization Address City/State/ZIP Code Phon e Number [place] [id number] (ABNORMAL) Hemogram (07/09/2017 2:30 AM EST) Analysis Performed At Patho logist Time Signature WBC 12.5 (H) 4.0 - 9.5 [facility] x10(3)/[facility] LABORATORY RBC 3.38 (L) 4.58 - [place] 5.54 [facility] HOSPITAL x10(6)/[facility] LABORATORY Hemoglobin 10.1 (L) 13.7 [facility] 16.5 gm/dL [facility] Hematocrit 30.3 (L) 40.[address] - [facility] 48.5 % [facility] MCV 89.6 82.9 [facility] 93.1 [facility] LABORATORY MCH 29.9 27.[address] - [facility] 32.1 pg [facility] MCHC 33.3 32.0 - [facility] 35.7 gm/dL [facility] Platelets 127 (L) 145 - 357 [facility] x10(3)/[facility] LABORATORY RDWSD 49.3 (H) 36.[address] - [facility] 45.0 [facility] LABORATORY RDWCV 15.2 (H) 11.[address] - [facility] 13.8 % [facility] MPV 9.9 7.6 - 12.9 [facility] nRBC % Auto 0.0 % [facility] LABORATORY nRBC Abs Auto 0.000 0.000 - [facility] SU 0.000 [facility] x10(3)/[facility] LABORATORY Specimen Anatomical Collection Method Collection Time Receive d Time (Source) Location / / Volume Laterality Blood specimen 07/09/2017 2:30 AM 017 2:41 (specimen) EST AM EST Resulting Agency Comment Spec In Lab Yuan Webber MD HEMATOLOGY ORDERABLES Performing Organization Address City/State/[place] [address] [facility] [address]ORY [address] POCT Glucose (07/09/2017 2:10 AM EST) P athologist Signature POC Glucose 169 65 - 199 [place] mg/dL [facility] Comment: Supplemental ranges: <140 mg/dL before meals <180 mg/dL all other times of the day Specimen Anatomical Collection Method Collection Time Receive d Time (Source) Location / / Volume Laterality Blood specimen 07/09/2017 2:10 AM 017 2:10 (specimen) EST AM EST Yuan Webber MD POINT OF CARE TEST ORDERABLE S Performing Organization Address City/[facility]/ZIP Code Phon e Number [address] POCT Glucose (07/09/2017 1:01 AM EST) P athologist Signature POC Glucose 173 65 - 199 [place] mg/dL [facility] Comment: Supplemental ranges: <140 mg/dL before meals <180 mg/dL all other times of the day Specimen Anatomical Collection Method Collection Time Receive d Time (Source) Location / / Volume Laterality Blood specimen 07/09/2017 1:01 AM 017 1:01 (specimen) EST AM EST Yuan Webber MD POINT OF CARE TEST ORDERABLE S Performing Organization Address City/[facility]/[place] [address] Blood culture (07/09/2017 12:40 AM EST) Patholo gist Method Time Signature Blood Culture No growth [place] ZHA[place]U at 5 days. [facility] Specimen Anatomical Collection Method Collection Time Receive d Time (Source) Location / / Volume Laterality Blood specimen STRUCTURE OF RIGHT 07/09/2017 12:40 3:58 (specimen) UPPER LIMB / AM EST AM EST Unknown Resulting Agency Comment Spec In Lab Yuan Webber MD MICROBIOLOGY - BLOOD ORDERAB LES Performing Organization Address City/State/[place] [address] Blood culture (07/09/2017 12:30 AM EST) Patholo gist Method Time Signature Blood Culture No growth KATALINA ZHAOSU at 5 days. [facility] Specimen Anatomical Collection Method Collection Time Receive d Time (Source) Location / / Volume Laterality Blood specimen STRUCTURE OF LEFT 07/09/2017 12:30 1211/2016 3:59 (specimen) UPPER LIMB / AM EST AM EST Unknown Resulting Agency Comment Spec In Lab Yuan Webber MD MICROBIOLOGY - BLOOD ORDERAB LES Performing Organization Address City/State/[place] [address] (ABNORMAL) Urinalysis Microscopic Exam (07/09/2017 12:05 AM EST) Analysis Performed At Patho logist Time Signature RBC UA 32 (H) 0 - 3 /HPF [facility] LABORATORY WBC UA 5 (H) 0 - 3 /HPF [facility] LABORATORY Squam Epith UA <1 <=4 /HPF [facility] LABORATORY Hyaline Cast 17 (H) 0 - 2 /LPF [facility] LABORATORY Gran Cast UA 1 (H) <=0 /LPF [facility] LABORATORY Uric Ac Bianca Rare (A) None /HPF [facility] LABORATORY Specimen (Source) Anatomical Collection Method Collection Time Re ceived Time Location / / Volume Laterality Urine specimen 07/09/2017 12:05 07/09/ 7 obtained via AM EST 12:39 AM EST indwelling urinary catheter (specimen) Resulting Agency Comment Spec In Lab Yuan Webber MD URINE ORDERABLES Performing Organization Address City/[facility]/[place] [address] (ABNORMAL) Urinalysis with reflex Culture (07/09/2017 12:05 AM EST) Patholo gist Method Time Signature Glucose UA Negative Negative [facility]/dL [facility] Protein UA 30 (A) Negative [facility] mg/dL [facility] Bilirubin UA Negative Negative [facility] mg/dL [facility] Comment: Clinical correlation required for positi ve Urine Bilirubin results as false positive may occur with some drugs and d rug related products. If a false positive is suspected a serum total bili yeager should be considered if clinically indicated. Urobilinogen UA Normal Normal mg/dL [facility] LABORATORY pH UA 5.0 5.0 - 8.0 [facility] LABORATORY Blood UA Moderate (A) Negative mg/dL [facility] LABORATORY Ketones UA Negative Negative mg/dL [facility] Nitrite UA Negative Negative [facility] LABORATORY Leukocytes UA Negative Negative [facility] LABORATORY Appearance UA Hazy (A) Clear [facility] LABORATORY Spec Cuney UA 1.025 1.002 - 1.030 [facility] LABORATORY Color UA Yellow Yellow [facility] Culture Reflexed No [facility] LABORATORY Specimen (Source) Anatomical Collection Method Collection Time Re ceived Time Location / / Volume Laterality Urine specimen 07/09/2017 12:05 7 obtained via AM EST 12:39 AM EST indwelling urinary catheter (specimen) Resulting Agency Comment Spec In Lab Yuan Webber MD URINE ORDERABLES Performing Organization Address City/[facility]/ZIP Code Phon e Number [address] POCT Glucose (07/08/2017 11:01 PM EST) athologist Signature POC Glucose 191 65 - 199 [facility] mg[facility]dL [facility] Comment: Supplemental ranges: <140 mg/dL before meals <180 mg/dL all other times of the day Specimen Anatomical Collection Method Collection Time Receive d Time (Source) Location / / Volume Laterality Blood specimen 07/08/2017 11:01 7 (specimen) PM EST 11:01 PM EST Yuan Webber MD POINT OF CARE TEST ORDERABLE S Performing Organization Address City/State/ZIP Code Phon e Number [address] POCT Glucose (07/08/2017 10:04 PM EST) athologist Signature POC Glucose 198 65 - 199 [facility] mg/dL [facility] Comment: Supplemental ranges: <140 mg/dL before meals <180 mg/dL all other times of the day Specimen Anatomical Collection Method Collection Time Receive d Time (Source) Location / / Volume Laterality Blood specimen 07/08/2017 10:04 7 (specimen) PM EST 10:04 PM EST Yuan Webber MD POINT OF CARE TEST ORDERABLE S Performing Organization Address City/State/[place] [address] Prepare Albumin 5% in [...] Organization Address City/State/[place] [address] POCT Glucose (07/08/2017 8:28 PM EST) P athologist Signature POC Glucose 195 65 - [address] [facility] mg[facility]dL [facility] Comment: Supplemental ranges: <140 mg/dL before meals <180 mg/dL all other times of the day Specimen Anatomical Collection Method Collection Time Receive d Time (Source) Location / / Volume Laterality Blood specimen 07/08/2017 8:28 PM 017 8:28 (specimen) EST PM EST Yuan Webber MD POINT OF CARE TEST ORDERABLE S Performing Organization Address City/State/[place] [address] (ABNORMAL) POCT Glucose (07/08/2017 7:13 PM EST) P athologist Signature POC Glucose 220 (H) 65 - [address] [facility] mg/dL [facility] Comment: Supplemental ranges: <140 mg/dL before meals <180 mg/dL all other times of the day Specimen Anatomical Collection Method Collection Time Receive d Time (Source) Location / / Volume Laterality Blood specimen 07/08/2017 7:13 PM 017 7:13 (specimen) EST PM EST Yuan Webber MD POINT OF CARE TEST ORDERABLE S Performing Organization Address City/State/ZIP Code Phon e Number [address] POCT Glucose (07/08/2017 5:04 PM EST) P athologist Signature POC Glucose 147 65 - 199 [facility] mg/dL [facility] Comment: Supplemental ranges: <140 mg/dL before meals <180 mg/dL all other times of the day Specimen Anatomical Collection Method Collection Time Receive d Time (Source) Location / / Volume Laterality Blood specimen 07/08/2017 5:04 PM 017 5:04 (specimen) EST PM EST Yuan Webber MD POINT OF CARE TEST ORDERABLE S Performing Organization Address City/State/[place] [address] (ABNORMAL) BLOOD GAS 2 ARTERIAL (07/08/2017 4:13 PM EST) Analysis Performed At Patho logist Time Signature pH Art 7.38 7.35 - [facility] 7.45 [facility] pCO2 Art 36 35 - 45 [facility] LABORATORY pO2 Art 91 85 - 104 [facility] LABORATORY HCO3 Art 20.9 20.0 - [facility] 26.0 [facility] mmol/L [facility] LABORATORY BE Art -4.2 (L) -3.0 - 3.0 [facility] mmol/L [facility] Hgb Blood Gas 11.7 (L) 13.7 - [facility] 16.5 gm/dL [facility] O2HB Art 95.1 94.0 - [facility] 97.0 % [facility] COHB Art 0.6 % [facility] Comment: Nonsmokers: 0.5-1.5% COHB Smokers: Variable, but usually less than 10% Toxic: 20-30% COHB Lethal: Greater than 60% COHB METHB Art 0.6 <=1.5 % [facility]OR[facility] Na Whole Blood 139 135 [...] Blood 110 (H) 98 - 107 mmol/L [facility] LABORATORY Gluc Whole Bld 155 65 - 199 mg/dL [facility] Comment: Diabetes: >=200 mg/dL plus symp toms. Lactate WB 1.4 0.5 - 2.2 mmol/L [facility] FIO2 Art 40 % [facility]OR[facility] PF Ratio Art 228 [facility] LABORATORY Specimen Anatomical Collection Method Collection Time Receive d Time (Source) Location / / Volume Laterality Blood specimen 07/08/2017 4:13 PM 017 4:13 (specimen) EST PM EST Yuan Webber MD CHEMISTRY ORDERABLES Performing Organization Address City/[facility] Code Phon e Number [address] POCT Glucose (07/08/2017 4:01 PM EST) athologist Signature POC Glucose 148 65 - 199 [facility] mg/dL [facility] Comment: Supplemental ranges: <140 mg/dL before meals <180 mg/dL all other times of the day Specimen Anatomical Collection Method Collection Time Receive d Time (Source) Location / / Volume Laterality Blood specimen 07/08/2017 4:01 PM 017 4:01 (specimen) EST PM EST Yuan Webber MD POINT OF CARE TEST ORDERABLE S Performing Organization Address City/[facility] Code Phon e Number [address] POCT Glucose (07/08/2017 3:21 PM EST) athologist Signature POC Glucose 118 65 - 199 [facility] mg/dL [facility] Comment: Supplemental ranges: <140 mg/dL before meals <180 mg/dL all other times of the day Specimen Anatomical Collection Method Collection Time Receive d Time (Source) Location / / Volume Laterality Blood specimen 07/08/2017 3:21 PM 017 3:21 (specimen) EST PM EST Yuan Webber MD POINT OF CARE TEST ORDERABLE S Performing Organization Address City/State/ZIP Code Phon e Number [address] POCT Glucose (07/08/2017 2:01 PM EST) athologist Signature POC Glucose 129 65 - 199 [place] mg/dL [facility] Comment: Supplemental ranges: <140 mg/dL before meals <180 mg/dL all other times of the day Specimen Anatomical Collection Method Collection Time Receive d Time (Source) Location / / Volume Laterality Blood specimen 07/08/2017 2:01 PM 017 2:01 (specimen) EST PM EST Yuan Webber MD POINT OF CARE TEST ORDERABLE S Performing Organization Address City/State/ZIP Code Phon e Number [address] POCT Glucose (07/08/2017 11:53 AM EST) athologist Signature POC Glucose 156 65 - 199 [place] mg/dL [facility] Comment: Supplemental ranges: <140 mg/dL before meals <180 mg/dL all other times of the day Specimen Anatomical Collection Method Collection Time Receive d Time (Source) Location / / Volume Laterality Blood specimen 07/08/2017 11:53 7 (specimen) AM EST 11:53 AM EST Yuan Webber MD POINT OF CARE TEST ORDERABLE S Performing Organization Address City/State/ZIP Code Phon e Number [address] POCT Glucose (07/08/2017 11:04 AM EST) athologist Signature POC Glucose 181 65 - 199 [place] mg/dL [facility] Comment: Supplemental ranges: <140 mg/dL before meals <180 mg/dL all other times of the day Specimen Anatomical Collection Method Collection Time Receive d Time (Source) Location / / Volume Laterality Blood specimen 07/08/2017 11:04 7 (specimen) AM EST 11:04 AM EST Yuan Webber MD POINT OF CARE TEST ORDERABLE S Performing Organization Address City/[facility]/[place] [address] (ABNORMAL) POCT Glucose (07/08/2017 9:24 AM EST) P athologist Signature POC Glucose 203 (H) 65 - 199 [facility] mg/dL [facility] Comment: Supplemental ranges: <140 mg/dL before meals <180 mg/dL all other times of the day Specimen Anatomical Collection Method Collection Time Receive d Time (Source) Location / / Volume Laterality Blood specimen 07/08/2017 9:24 AM 017 9:24 (specimen) EST AM EST Yuan Webber MD POINT OF CARE TEST ORDERABLE S Performing Organization Address City/[facility] [place] [address] APTT (07/08/2017 8:40 AM EST) athologist Signature PTT 33 25 - 35 sec [facility] Comment: The recommended therapeutic range for fu ll dose, unfractionated heparin at [facility] is 80 ? 114 seconds. The use [...] Webber MD HEMATOLOGY ORDERABLES Performing Organization Address City/[facility]/[place] [address] (ABNORMAL) Prothrombin Time (07/08/2017 [...] Webber MD HEMATOLOGY ORDERABLES Performing Organization Address City/[facility]/[place] [address] (ABNORMAL) POCT Glucose (07/08/2017 7:38 AM EST) athologist Signature POC Glucose 232 (H) 65 - 199 [facility] mg/dL [facility] Comment: Supplemental ranges: <140 mg/dL before meals <180 mg/dL all other times of the day Specimen Anatomical Collection Method Collection Time Receive d Time (Source) Location / / Volume Laterality Blood specimen 07/08/2017 7:38 AM 017 7:38 (specimen) EST AM EST Yuan Webber MD POINT OF CARE TEST ORDERABLE S Performing Organization Address City/[facility]/[place] [address] (ABNORMAL) POCT Glucose (07/08/2017 7:07 AM EST) athologist Signature POC Glucose 234 (H) 65 - 199 [facility] mg/dL [facility] Comment: Supplemental ranges: <140 mg/dL before meals <180 mg/dL all other times of the day Specimen Anatomical Collection Method Collection Time Receive d Time (Source) Location / / Volume Laterality Blood specimen 07/08/2017 7:07 AM 017 7:07 (specimen) EST AM EST Yuan Webber MD POINT OF CARE TEST ORDERABLE S Performing Organization Address City/State/[place] [address] (ABNORMAL) POCT Glucose (07/08/2017 6:04 AM EST) P athologist Signature POC Glucose 225 (H) 65 - 199 [place] mg/dL [facility] Comment: Supplemental ranges: <140 mg/dL before meals <180 mg/dL all other times of the day Specimen Anatomical Collection Method Collection Time Receive d Time (Source) Location / / Volume Laterality Blood specimen 07/08/2017 6:04 AM 017 6:04 (specimen) EST AM EST Yuan Webber MD POINT OF CARE TEST ORDERABLE S Performing Organization Address City/[facility]/[place] [address] (ABNORMAL) POCT Glucose (07/08/2017 5:31 AM EST) P athologist Signature POC Glucose 216 (H) 65 - 199 [facility] mg/dL [facility] Comment: Supplemental ranges: <140 mg/dL before meals <180 mg/dL all other times of the day Specimen Anatomical Collection Method Collection Time Receive d Time (Source) Location / / Volume Laterality Blood specimen 07/08/2017 5:31 AM 017 5:31 (specimen) EST AM EST Yuan Webber MD POINT OF CARE TEST ORDERABLE S Performing Organization Address City/State/[place] [address] (ABNORMAL) POCT Glucose (07/08/2017 4:52 AM EST) P athologist Signature POC Glucose 257 (H) 65 - 199 [facility] mg/dL [facility] Comment: Supplemental ranges: <140 mg/dL before meals <180 mg/dL all other times of the day Specimen Anatomical Collection Method Collection Time Receive d Time (Source) Location / / Volume Laterality Blood specimen 07/08/2017 4:52 AM 017 4:52 (specimen) EST AM EST Daphne Shahid MD POINT OF CARE TEST ORDERABLE S Performing Organization Address City/State/[place] [address] (ABNORMAL) BLOOD GAS 2 ARTERIAL (07/08/2017 4:04 AM EST) Analysis Performed At Patho logist Time Signature pH Art 7.30 (L) 7.35 - [facility] 7.45 [facility] pCO2 Art 41 35 - 45 [facility] LABORATORY pO2 Art 83 (L) 85 - 104 [facility] LABORATORY HCO3 Art 19.6 (L) 20.0 - [facility] 26.0 [facility] mmol/[facility] LABORATORY BE Art -6.8 (L) -3.0 - 3.0 [facility] mmol/L [facility] Hgb Blood Gas 12.2 (L) 13.7 - [facility] 16.5 gm/dL [facility] O2HB Art 93.5 (L) 94.0 - [facility] 97.0 % [facility] COHB Art 0.4 % [facility] Comment: Nonsmokers: 0.5-1.5% COHB Smokers: Variable, but usually less than 10% Toxic: 20-30% COHB Lethal: Greater than 60% COHB METHB Art 0.8 <=1.5 % [facility] Na Whole Blood 138 135 [...] Whole Blood 107 98 - 107 mmol/L [facility] Gluc Whole Bld 274 (H) 65 - 199 mg/dL [facility] Comment: Diabetes: >=200 mg/dL plus symp toms. Lactate WB 4.4 (Critical) 0.5 - 2.2 mmol/L [facility] Comment: Noted by instruments sales representative. FIO2 Art 40 % [facility] PF Ratio Art 208 [facility] LABORATORY Specimen Anatomical Collection Method Collection Time Receive d Time (Source) Location / / Volume Laterality Blood specimen 07/08/2017 4:04 AM 017 4:04 (specimen) EST AM EST Daphne Shahid MD CHEMISTRY ORDERABLES Performing Organization Address City/[facility]/ZIP Code Phon e Number [address] Scan, Peripheral Blood (07/08/2017 [...] Webber MD HEMATOLOGY ORDERABLES Performing Organization Address City/[facility]/ZIP Code Phon e Number [address] (ABNORMAL) Differential, Automated (07/08/2017 4:00 AM EST) Patholo gist Method Time Signature Neutrophils % 85.4 % [facility] Neutr Abs (ANC) 16.07 (H) 1.70 - [facility] 6.10 [facility] x10(3)/[facility] L LABORATORY Lymphocytes % 3.5 % [facility] Lymphocytes Abs 0.6 (L) 0.9 - 3.2 [facility] x10(3)/[facility] LABORATORY Monocytes % 10.4 % [facility]ORY Monocyte Abs 2.0 (H) 0.3 - 0.9 [facility] x10(3)/[facility] LABORATORY Eosinophils % 0.0 % [facility] Eosinophils Abs 0.0 0.0 - 0.4 [facility] x10(3)/[facility] LABORATORY Basophils % 0.1 % [facility] Basophils Abs 0.0 0.0 - 0.1 [facility] x10(3)/[facility] LABORATORY Immature Gran % 0.60 % [...] Gran Abs 0.12 (H) 0.00 - 0.04 x10(3)/[facility] LABORATORY Specimen Anatomical Collection Method Collection Time Receive d Time (Source) Location / / Volume Laterality Blood specimen 07/08/2017 4:00 AM 017 4:09 (specimen) EST AM EST Resulting Agency Comment Spec In Lab Yuan Webber MD HEMATOLOGY ORDERABLES Performing Organization Address City/State/[place] [address] (ABNORMAL) Hemogram (07/08/2017 4:00 AM EST) Analysis Performed At Patho logist Time Signature WBC 18.8 (H) 4.0 - 9.5 [facility] x10(3)/[facility] LABORATORY RBC 4.00 (L) 4.58 - [facility] 5.54 [facility] x10(6)/[facility] LABORATORY Hemoglobin 11.9 (L) 13.7 - [facility] 16.5 gm/dL [facility] Hematocrit 35.9 (L) 40.5 - [facility] 48.5 % [facility] MCV 89.8 82.9 - [facility] 93.1 fL [facility] MCH 29.8 27.5 - [facility] 32.1 pg [facility] MCHC 33.1 32.0 - [facility] 35.7 gm/dL [facility] Platelets 232 145 - 357 [facility] x10(3)/[facility] LABORATORY RDWSD 47.6 (H) 36.0 - [facility] 45.0 [facility] LABORATORY RDWCV 14.5 (H) 11.4 - [facility] 13.8 % [facility] MPV 9.5 7.6 - 12.9 [facility] LABORATORY nRBC % Auto 0.0 % [facility] LABORATORY nRBC Abs Auto 0.000 0.000 - [facility] 0.000 [facility] x10(3)/[facility] LABORATORY Specimen Anatomical Collection Method Collection Time Receive d Time (Source) Location / / Volume Laterality Blood specimen 07/08/2017 4:00 AM 017 4:09 (specimen) EST AM EST Resulting Agency Comment Spec In Lab Yuan Webber MD HEMATOLOGY ORDERABLES Performing Organization Address City/[facility]/[place] [address] (ABNORMAL) Electrolytes panel (07/08/2017 4:00 AM EST) P athologist Signature Sodium 139 135 - 145 [facility] mmol/L [facility] Potassium 4.7 3.5 - 5.0 [facility] mmol/L [facility] Comment: result [id number] Please note: ??Patients [...] Anion Gap 14 5 - 15 mmol/L [facility]OR[facility]ORY Specimen Anatomical Collection Method Collection Time Receive d Time (Source) Location / / Volume Laterality Blood specimen 07/08/2017 4:00 AM 017 4:10 (specimen) EST AM EST Resulting Agency Comment Spec In Lab Yuan Webber MD CHEMISTRY ORDERABLES Performing Organization Address City/[facility]/[place] [address] (ABNORMAL) Cardiac Enzymes (LEB/CGP) (07/08/2017 4:00 AM EST) athologist Signature Troponin-T 1.88 (H) 0.00 - [facility] 0.00 ng/mL [facility] Comment: The 99th percentile for Troponin T is le ss than 0.01 ng/mL, any detectable cTnT concentration using this assay should be considered elevated. According to the third universal definit ion of myocardial infarction the following criteria with a clinical prese ntation consistent with acute myocardial ischemia meets the diagnosis for a myocardial infarction (OH). Detection of a rise and/or fall of [...] additional sample may be indicated. Reference: Third [place] Definition of Myocardial Infarction. Journal of the [employer] College [employer] 2012;60:1581-98 CK, Total 413 [...] Organization Address City/State/[place] [address] (ABNORMAL) Glucose, fasting (07/08/2017 4:00 AM EST) athologist Signature Glucose 287 (H) 65 - 99 [place] Fasting mg/dL [facility] Comment: ?Fasting* Glucose Interpretive C riteria [...] of Diabetes Mellitus, Position Statement from the [employer]. ??Diabete s Care, Volume 33, Supplement 1, Jul 2009 Specimen Anatomical Collection Method Collection Time Receive d Time (Source) Location / / Volume Laterality Blood specimen 07/08/2017 4:00 AM 017 4:09 (specimen) EST AM EST Resulting Agency Comment Spec In Lab Yuan Webber MD CHEMISTRY ORDERABLES Performing Organization Address City/[facility] [place] [address] (ABNORMAL) Creatinine (07/08/2017 4:00 AM EST) Analysis Performed At [facility] Time Signature Creatinine 1.55 (H) 0.80 - [facility] 1.50 mg/dL [facility] Estimated GFR 44 (L) >=60 [facility] Comment: The reported eGFR should be multiplied b y 1.2 for patients. The MDRD is not an appropriate measure o f renal function for patients with body mass extremes or in patients with acute kidney failure. [email or web address] [email or web address] Specimen Anatomical Collection Method Collection Time Receive d Time (Source) Location / / Volume Laterality Blood specimen 07/08/2017 4:00 AM 017 4:09 (specimen) EST AM EST Resulting Agency Comment Spec In Lab Yuan Webber MD CHEMISTRY ORDERABLES Performing Organization Address City/[facility]/[place] [address] BUN (07/08/2017 4:00 AM EST) athologist Signature BUN 16 10 - [facility] Specimen Anatomical Collection Method Collection Time Receive d Time (Source) Location / / Volume Laterality Blood specimen 07/08/2017 4:00 AM 017 4:09 (specimen) EST AM EST Resulting Agency Comment Spec In Lab Yuan Webber MD CHEMISTRY ORDERABLES Performing Organization Address City/State/[place] [address] (ABNORMAL) POCT Glucose (07/08/2017 3:00 AM EST) athologist Signature POC Glucose 273 (H) 65 - [address] [facility] Comment: Supplemental ranges: <140 mg/dL before meals <180 mg/dL all other times of the day Specimen Anatomical Collection Method Collection Time Receive d Time (Source) Location / / Volume Laterality Blood specimen 07/08/2017 3:00 AM 017 3:00 (specimen) EST AM EST Daphne Shahid MD POINT OF CARE TEST ORDERABLE S Performing Organization Address City/[facility]/[place] [address] (ABNORMAL) POCT Glucose (07/08/2017 1:57 AM EST) athologist Signature POC Glucose 288 (H) 65 - [address] [facility] Comment: Supplemental ranges: <140 mg/dL before meals <180 mg/dL all other times of the day Specimen Anatomical Collection Method Collection Time Receive d Time (Source) Location / / Volume Laterality Blood specimen 07/08/2017 1:57 AM 017 1:57 (specimen) EST AM EST Daphne Shahid MD POINT OF CARE TEST ORDERABLE S Performing Organization Address City/State/[place] [address] (ABNORMAL) POCT Glucose (07/08/2017 1:01 AM EST) athologist Signature POC Glucose 315 (H) 65 - 199 [facility] mg/dL [facility] Comment: Supplemental ranges: <140 mg/dL before meals <180 mg/dL all other times of the day Specimen Anatomical Collection Method Collection Time Receive d Time (Source) Location / / Volume Laterality Blood specimen 07/08/2017 1:01 AM 017 1:01 (specimen) EST AM EST Daphne Shahid MD POINT OF CARE TEST ORDERABLE S Performing Organization Address City/State/[place] [address] (ABNORMAL) BLOOD GAS 2 ARTERIAL (07/08/2017 12:09 AM EST) athologist Signature pH Art 7.26 7.35 - [facility] (Critical) 7.45 [facility] Comment: Noted by instruments sales representative. pCO2 Art 41 35 - 45 mmHg [facility] pO2 Art 96 85 - 104 mmHg [facility] HCO3 Art 17.7 (L) 20.0 - 26.0 mmol/L [facility] BE Art -9.4 (L) -3.0 - 3.0 mmol/L [facility] Hgb Blood Gas 12.4 (L) 13.7 - 16.5 gm/dL [facility] O2HB Art 94.7 94.0 - 97.0 % [facility] COHB Art 0.2 % [facility] Comment: Nonsmokers: 0.5-1.5% COHB Smokers: Variable, but usually less than 10% Toxic: 20-30% COHB Lethal: Greater than 60% COHB METHB Art 0.6 <=1.5 % [facility] Na Whole Blood 141 135 [...] Blood 109 (H) 98 - 107 mmol/L [facility] Gluc Whole Bld 315 (H) 65 - 199 mg/dL [facility] Comment: Diabetes: >=200 mg/dL plus symp toms. Lactate WB 7.6 (Critical) 0.5 - 2.2 mmol/L [facility] Comment: Noted by instruments sales representative. FIO2 Art 40 % [facility] PF Ratio Art 240 [facility] Specimen Anatomical Collection Method Collection Time Receive d Time (Source) Location / / Volume Laterality Blood specimen Arterial Draw / 07/08/2017 12:09 2016 5:31 (specimen) Unknown AM EST AM EST Resulting Agency Comment Spec In Lab Samy Maldonado MD CHEMISTRY ORDERABLES Performing Organization Address City/State/[place] [address] (ABNORMAL) POCT Glucose (07/07/2017 10:56 PM EST) P athologist Signature POC Glucose 292 (H) 65 - 199 [facility] mg/dL [facility] Comment: Supplemental ranges: <140 mg/dL before meals <180 mg/dL all other times of the day Specimen Anatomical Collection Method Collection Time Receive d Time (Source) Location / / Volume Laterality Blood specimen 07/07/2017 10:56 7 (specimen) PM EST 10:56 PM EST Daphne Shahid MD POINT OF CARE TEST ORDERABLE S Performing Organization Address City/State/[place] [address] (ABNORMAL) BLOOD GAS 2 ARTERIAL (07/07/2017 10:04 PM EST) athologist Signature pH Art 7.22 7.35 - [facility] (Critical) 7.45 [facility] Comment: Noted by instruments sales representative. pCO2 Art 42 35 - 45 mmHg [facility] pO2 Art 94 85 - 104 mmHg [facility] HCO3 Art 16.9 (L) 20.0 - 26.0 mmol/L [facility] BE Art -10.7 (L) -3.0 - 3.0 mmol/L [facility] Hgb Blood Gas 13.0 (L) 13.7 - 16.5 gm/dL [facility] O2HB Art 93.8 (L) 94.0 - 97.0 % [facility] COHB Art 0.7 % [facility] Comment: Nonsmokers: 0.5-1.5% COHB Smokers: Variable, but usually less than 10% Toxic: 20-30% COHB Lethal: Greater than 60% COHB METHB Art 0.7 <=1.5 % [facility] Na Whole Blood 140 135 - 145 mmol/L [facility] K Whole Blood 3.3 (L) 3.5 - 5.0 mmol/L [facility] [...] Whole Blood 107 98 - 107 mmol/L [facility] Gluc Whole Bld 304 (H) 65 - 199 mg/dL [facility] Comment: Diabetes: >=200 mg/dL plus symp toms. Lactate WB 8.2 (Critical) 0.5 - 2.2 mmol/L [facility] Comment: Noted by instruments sales representative. FIO2 Art 40 % [facility] PF Ratio Art 235 [facility] Specimen Anatomical Collection Method Collection Time Receive d Time (Source) Location / / Volume Laterality Blood specimen 07/07/2017:04 7 (specimen) PM EST 10:04 PM EST Daphne Shahid MD CHEMISTRY ORDERABLES Performing Organization Address City/[facility] [place] [address] (ABNORMAL) Hemoglobin (07/07/2017 10:00 PM EST) athologist Signature Hemoglobin 12.8 (L) 13.7 - [place] [facility] 16.5 gm/dL [facility] Specimen Anatomical Collection Method Collection Time Receive d Time (Source) Location / / Volume Laterality Blood specimen 07/07/2017 10:00 7 (specimen) PM EST 10:13 PM EST Resulting Agency Comment Spec In Lab Yuan Webber MD HEMATOLOGY ORDERABLES Performing Organization Address [facility] [place] [address] (ABNORMAL) Potassium (07/07/2017 10:00 PM EST) athologist Signature Potassium 3.4 (L) 3.5 - 5.0 [facility] mmol/L [facility] Comment: Please note: ??Patients with WBC [...] Webber MD CHEMISTRY ORDERABLES Performing Organization Address City/[facility]/ZIP [facility] [place] [address] (ABNORMAL) POCT Glucose (07/07/2017 8:49 PM EST) athologist Signature POC Glucose 241 (H) 65 - 199 [facility] mg/dL [facility] Comment: Supplemental ranges: <140 mg/dL before meals <180 mg/dL all other times of the day Specimen Anatomical Collection Method Collection Time Receive d Time (Source) Location / / Volume Laterality Blood specimen 07/07/2017 8:49 PM 017 8:49 (specimen) EST PM EST Daphne Shahid MD POINT OF CARE TEST ORDERABLE S Performing Organization Address City/[facility]/[place] [address] Prepare Albumin 5% in [...] BROWN BLOOD BANK ORDERABLES Performing Organization Address [facility]/[place] [address] EKG 12 Lead (07/07/2017 7:17 PM EST) Component Value Ref Range Test Analysis Performed Pathologis t Method Time At Signature Ventricular rate 75 BPM MUSE SYSTEM Atrial Rate 75 BPM MUSE SYSTEM P-R Interval 168 ms MUSE SYSTEM QRS Duration 104 ms MUSE SYSTEM Q-T Interval 462 ms MUSE SYSTEM QTC Calculated 515 ms MUSE SYSTEM (Bezet) Calculated P [place] 52 degrees MUSE SYSTEM Calculated R [place] -40 degrees MUSE SYSTEM Calculated T [place] 39 degrees MUSE SYSTEM INTERPRETATION Normal sinus [...] 7.21 7.35 - [facility] (Critical) 7.45 [facility] Comment: Noted by instruments sales representative. pCO2 Art 50 (H) 35 - 45 mmHg [facility] pO2 Art 238 (H) 85 - 104 mmHg [facility] HCO3 Art 19.8 (L) 20.0 - 26.0 mmol/L [facility] BE Art -8.1 (L) -3.0 - 3.0 mmol/L [facility] Hgb Blood Gas 12.8 (L) 13.7 - 16.5 gm/dL [facility] O2HB Art 97.5 (H) 94.0 - 97.0 % [facility] COHB Art 0.5 % [facility] Comment: Nonsmokers: 0.5-1.5% COHB Smokers: Variable, but usually less than 10% Toxic: 20-30% COHB Lethal: Greater than 60% COHB METHB Art 0.7 <=1.5 % [facility] Na Whole Blood 140 135 - 145 mmol/L [facility] K Whole Blood 3.0 (Critical) 3.5 - 5.0 mmol/L [facility] Comment: Noted by instruments sales representative. Please note: Patients with WBC >100,000 may have falsely elevated Potassium levels. Contact the Clinical Chemistry L aboratory if there are any questions. ICa Whole Blood 1.07 (L) 1.15 - 1.33 mmol/L [facility] Comment: Note: ??Total bilirubin higher than 20 m g/dL may lead to falsely low ionized calcium. CL Whole Blood 107 98 - 107 mmol/L [facility] Gluc Whole Bld 270 (H) 65 - 199 mg/dL [facility] Comment: Diabetes: >=200 mg/dL plus symp toms. Lactate WB 4.9 (Critical) 0.5 - 2.2 mmol/L [facility] Comment: Noted by instruments sales representative. FIO2 Art 100 % [facility] PF Ratio Art 238 [facility] Specimen Anatomical Collection Method Collection Time Receive d Time (Source) Location / / Volume Laterality Blood specimen 07/07/2017 6:57 PM 017 6:57 (specimen) EST PM EST Daphne Shahid MD CHEMISTRY ORDERABLES Performing Organization Address City/State/[place] [address] (ABNORMAL) BLOOD GAS 2 ARTERIAL (07/07/2017 5:31 PM EST) athologist Signature pH Art 7.29 7.35 - [facility] (Critical) 7.45 [facility] Comment: Noted by instruments sales representative. pCO2 Art 48 (H) 35 - 45 mmHg [facility] pO2 Art 137 (H) 85 - 104 mmHg [facility] HCO3 Art 22.4 20.0 - 26.0 mmol/L [facility] BE Art -4.3 (L) -3.0 - 3.0 mmol/L [facility] Hgb Blood Gas 10.0 (L) 13.7 - 16.5 gm/dL [facility] O2HB Art 97.3 (H) 94.0 - 97.0 % [facility] COHB Art 0.3 % [facility] Comment: Nonsmokers: 0.5-1.5% COHB Smokers: Variable, but usually less than 10% Toxic: 20-30% COHB Lethal: Greater than 60% COHB METHB Art 0.3 <=1.5 % [facility] Na Whole Blood 132 (L) 135 - 145 mmol/L [facility] K Whole Blood 4.0 3.5 [...] Whole Blood 105 98 - 107 mmol/L [facility] Gluc Whole Bld 293 (H) 65 - 199 mg/dL [facility] Comment: Diabetes: >=200 mg/dL plus symp toms. Lactate WB 3.1 (H) 0.5 - 2.2 mmol/L [facility] Specimen Anatomical Collection Method Collection Time Receive d Time (Source) Location / / Volume Laterality Blood specimen 07/07/2017 5:31 PM 017 5:31 (specimen) EST PM EST Daphne Shahid MD CHEMISTRY ORDERABLES Performing Organization Address City/[facility] Phon e Number [address] Fibrinogen (07/07/2017 5:30 PM EST) athologist Signature Fibrinogen 224 180 - 510 [facility] mg/dL [facility] Comment: Called by: JEET, Read back [...] Perez MD HEMATOLOGY ORDERABLES Performing Organization Address [facility] Phon e Number [address] APTT (07/07/2017 5:30 PM EST) P athologist Signature PTT 30 25 - 35 sec [facility] Comment: The recommended therapeutic range for fu ll dose, unfractionated heparin at [facility] is 80 ? 114 seconds. The use [...] Perez MD HEMATOLOGY ORDERABLES Performing Organization Address City/[facility]/[place] [address] (ABNORMAL) Prothrombin Time (07/07/2017 [...] Perez MD HEMATOLOGY ORDERABLES Performing Organization Address City/[facility] [place] [address] (ABNORMAL) Hemogram (07/07/2017 5:30 PM EST) P athologist Signature WBC 19.6 (H) 4.0 - 9.5 [facility] x10(3)/[facility] LABORATORY RBC 3.08 (L) 4.58 - [facility] 5.54 [facility] x10(6)/[facility] LABORATORY Hemoglobin 9.2 (L) 13.7 - [facility] 16.5 gm/dL [facility] Hematocrit 28.0 (L) 40.5 - [facility] 48.5 % [facility] Comment: This result has been called to MONICA MORAN by DONALD GROSSMAN on 07 07 2017 at 1759, and has been read back. MCV 90.9 82.9 - 93.1 fL [facility] MCH 29.9 27.5 - 32.1 pg [facility] MCHC 32.9 32.0 - 35.7 gm/dL [facility] Platelets 155 145 - 357 x10(3)/[facility] LABORATORY RDWSD 46.5 (H) 36.0 - 45.0 fL [facility] RDWCV 14.1 (H) 11.4 - 13.8 % [facility] MPV 9.5 7.6 - 12.9 [facility] LABORATORY nRBC % Auto 0.0 % [facility] LABORATORY nRBC Abs Auto 0.000 0.000 - 0.000 x10(3)/[facility] LABORATORY Specimen Anatomical Collection Method Collection Time Receive d Time (Source) Location / / Volume Laterality Blood specimen 07/07/2017 5:30 PM 017 5:34 (specimen) EST PM EST Resulting Agency Comment Spec In Lab Yifan Perez MD HEMATOLOGY ORDERABLES Performing Organization Address City/[facility]/ZIP [facility] Phon e Number [address] Prepare Platelets, Apheresis (07/07/2017 5:00 PM EST) P athologist Signature Dispensed? Yes [facility] Specimen Anatomical Collection Method Collection Time Receive d Time (Source) Location / / Volume Laterality Blood specimen 07/07/2017 5:00 PM 017 4:58 (specimen) EST PM EST Daphne Shahid MD BLOOD BANK ORDERABLES Performing Organization Address City/[facility] Phon e Number [address] Platelet count (07/07/2017 4:55 PM EST) P athologist Signature Platelets 177 145 - 357 [facility] x10(3)/[facility] LABORATORY Plat Immature 1.5 0.0 - 7.4 [facility] Comment: Limitation of the Immature Platelet Frac tion (IPF)-May be less reliable when the platelet count is less than 70w411/u L due to statistical imprecision. The IPF [...] in a decreased state of production. References: [employer] The Clinical Value of the Immature Platelet Fraction (IPF) in Cell Recovery Document Number 10-1143 12/2010 [employer] The Role of the Imm ature [...] Organization Address City/State/[place] [address] (ABNORMAL) Hemoglobin and Hematocrit, blood (07/07/2017 4:55 PM EST) P athologist Signature Hemoglobin 9.1 (L) 13.7 - 16.5 [facility] gm/dL [facility] Comment: This result has been called [...] Organization Address City/State/[place] [address] (ABNORMAL) BLOOD GAS 2 ARTERIAL (07/07/2017 4:38 PM EST) Analysis Performed At Patho logist Time Signature pH Art 7.37 7.35 - [facility] 7.45 [facility] pCO2 Art 44 35 - 45 [facility] mmHg [facility] pO2 Art 322 (H) 85 - 104 [facility] LABORATORY HCO3 Art 24.9 20.0 - [facility] 26.0 [facility] mmol/L [facility] BE Art -0.4 -3.0 - 3.0 [facility] mmol/L [facility] Hgb Blood Gas 10.1 (L) 13.7 - [facility] 16.5 gm/dL [facility] O2HB Art 98.7 (H) 94.0 - [facility] 97.0 % [facility] COHB Art 0.1 % [facility] Comment: Nonsmokers: 0.5-1.5% COHB Smokers: Variable, but usually less than 10% Toxic: 20-30% COHB Lethal: Greater than 60% COHB METHB Art 0.3 <=1.5 % [facility] Na Whole Blood 130 (L) 135 - 145 mmol/L [facility] K Whole Blood 5.7 (H) 3.5 - 5.0 mmol/L [facility] Comment: Please note: Patients with WBC >100,000 may have falsely elevated Potassium levels. Contact the Clinical Chemistry L aboratory if there are any questions. ICa Whole Blood 0.89 (Critical) 1.15 - 1.33 mmol/L [facility] Comment: Noted by instruments sales representative. Note: ??Total bilirubin higher than 20 m g/dL may lead to falsely low ionized calcium. CL Whole Blood 101 98 - 107 mmol/L [facility] Gluc Whole Bld 295 (H) 65 - 199 mg/dL [facility] Comment: Diabetes: >=200 mg/dL plus symp toms. Lactate WB 1.7 0.5 - 2.2 mmol/L [facility] Specimen Anatomical Collection Method Collection Time Receive d Time (Source) Location / / Volume Laterality Blood specimen 07/07/2017 4:38 PM 017 4:38 (specimen) EST PM EST Daphne Shahid MD CHEMISTRY ORDERABLES Performing Organization Address City/State/[place] [address] (ABNORMAL) BLOOD GAS 2 VENOUS (07/07/2017 4:06 PM EST) Analysis Performed At Patho logist Time Signature pH Cody 7.31 (L) 7.32 - [facility] 7.42 [facility] pCO2 Cody 47 41 - 51 [facility] LABORATORY pO2 Cody 53 (H) 25 - 40 [facility] LABORATORY HCO3 [place] 22.7 mmol/L [facility] BE Cody -3.7 mmol/L [facility] Hgb Blood Gas 10.2 (L) 13.7 - [facility] 16.5 gm/dL [facility] O2HB [place] 81.0 % [facility] COHB Cody 1.0 % [facility] Comment: Nonsmokers: 0.5-1.5% COHB Smokers: Variable, but usually less than 10% Toxic: 20-30% COHB Lethal: Greater than 60% COHB METHB Cody 0.3 <=1.5 % [facility] Na Whole Blood 132 (L) 135 - 145 mmol/L [facility] K Whole Blood 5.3 (H) 3.5 - 5.0 mmol/L [facility] Comment: Please note: Patients with WBC >100,000 may have falsely elevated Potassium levels. Contact the Clinical Chemistry L aboratory if there are any questions. ICa Whole Blood 0.90 (Critical) 1.15 - 1.33 mmol/L [facility] Comment: Noted by instruments sales representative. Note: ??Total bilirubin higher than 20 m g/dL may lead to falsely low ionized calcium. CL Whole Blood 100 98 - 107 mmol/L [facility] Gluc Whole Bld 231 (H) 65 - 199 mg/dL [facility] Comment: Diabetes: >=200 mg/dL plus symp toms Lactate WB 1.1 0.5 - 2.2 mmol/L [facility] BGas Source Venous [facility] LABORATORY Specimen Anatomical Collection Method Collection Time Receive d Time (Source) Location / / Volume Laterality Blood specimen 07/07/2017 4:06 PM 017 4:06 (specimen) EST PM EST Daphne Shahid MD CHEMISTRY ORDERABLES Performing Organization Address City/State/[place] [address] (ABNORMAL) BLOOD GAS 2 ARTERIAL (07/07/2017 4:05 PM EST) Analysis Performed At Patho logist Time Signature pH Art 7.36 7.35 - [facility] 7.45 [facility] pCO2 Art 40 35 - 45 [facility] LABORATORY pO2 Art 282 (H) 85 - 104 [facility] LABORATORY HCO3 Art 22.1 20.0 - [facility] 26.0 [facility] mmol/L [facility] LABORATORY BE Art -3.4 (L) -3.0 - 3.0 [facility] mmol/L [facility] Hgb Blood Gas 10.2 (L) 13.7 - [facility] 16.5 gm/dL [facility] O2HB Art 98.4 (H) 94.0 - [facility] 97.0 % [facility] COHB Art 0.3 % [facility] Comment: Nonsmokers: 0.5-1.5% COHB Smokers: Variable, but usually less than 10% Toxic: 20-30% COHB Lethal: Greater than 60% COHB METHB Art 0.3 <=1.5 % [facility] Na Whole Blood 131 (L) 135 - 145 mmol/L [facility] K Whole Blood 5.4 (H) 3.5 - 5.0 mmol/L [facility] Comment: Please note: Patients with WBC >100,000 may have falsely elevated Potassium levels. Contact the Clinical Chemistry L aboratory if there are any questions. ICa Whole Blood 0.86 (Critical) 1.15 - 1.33 mmol/L [facility] Comment: Noted by instruments sales representative. Note: ??Total bilirubin higher than 20 m g/dL may lead to falsely low ionized calcium. CL Whole Blood 101 98 - 107 mmol/L [facility] Gluc Whole Bld 260 (H) 65 - 199 mg/dL [facility] Comment: Diabetes: >=200 mg/dL plus symp toms. Lactate WB 1.4 0.5 - 2.2 mmol/L [facility] Specimen Anatomical Collection Method Collection Time Receive d Time (Source) Location / / Volume Laterality Blood specimen 07/07/2017 4:05 PM 017 4:05 (specimen) EST PM EST Daphne Shahid MD CHEMISTRY ORDERABLES Performing Organization Address City/State/[place] [address] (ABNORMAL) BLOOD GAS 2 ARTERIAL (07/07/2017 2:29 PM EST) Analysis Performed At Patho logist Time Signature pH Art 7.43 7.35 - [facility] 7.45 [facility] pCO2 Art 36 35 - 45 [facility] mmHg [facility] pO2 Art 221 (H) 85 - 104 [facility] mmHg [facility] HCO3 Art 23.2 20.0 - [facility] 26.0 [facility] mmol/L [facility] BE Art -1.2 -3.0 - 3.0 [facility] mmol/L [facility] Hgb Blood Gas 13.9 13.7 - [facility] 16.5 gm/dL [facility] O2HB Art 97.8 (H) 94.0 - [facility] 97.0 % [facility] COHB Art 1.1 % [facility] Comment: Nonsmokers: 0.5-1.5% COHB Smokers: Variable, but usually less than 10% Toxic: 20-30% COHB Lethal: Greater than 60% COHB METHB Art 0.3 <=1.5 % [facility] Na Whole Blood 139 135 [...] Lactate WB 1.5 0.5 - 2.2 mmol/L [facility] Specimen Anatomical Collection Method Collection Time Receive d Time (Source) Location / / Volume Laterality Blood specimen 07/07/2017 2:29 PM 017 2:29 (specimen) EST PM EST Daphne Shahid MD CHEMISTRY ORDERABLES Performing Organization Address City/[facility] [place] [address] Prepare Coag Factors (Non-Hemophilia) (07/07/2017 1:25 PM EST) P athologist Signature Dispensed? Yes [facility] Specimen Anatomical Collection Method Collection Time Receive d Time (Source) Location / / Volume Laterality Blood specimen 07/07/2017 1:25 PM 017 1:21 (specimen) EST PM EST Daphne Shahid MD BLOOD BANK ORDERABLES Performing Organization Address City/[facility]/[place] [address] Prepare RBC (07/07/2017 1:10 PM EST) P athologist Signature Dispensed? Yes [facility] Specimen Anatomical Collection Method Collection Time Receive d Time (Source) Location / / Volume Laterality Blood specimen 07/07/2017 1:10 PM 017 1:05 (specimen) EST PM EST Daphne Shahid MD BLOOD BANK ORDERABLES Performing Organization Address City/[facility]/ZIP Code Phon e Number [address] POCT Glucose (07/07/2017 11:56 AM EST) P athologist Signature POC Glucose 188 65 - 199 [place] mg/dL [facility] Comment: Supplemental ranges: <140 mg/dL before meals <180 mg/dL all other times of the day Specimen Anatomical Collection Method Collection Time Receive d Time (Source) Location / / Volume Laterality Blood specimen 07/07/2017 11:56 7 (specimen) AM EST 11:56 AM EST Daphne Shahid MD POINT OF CARE TEST ORDERABLE S Performing Organization Address City/[facility]/ZIP Code Phon e Number [address] POCT Glucose (07/07/2017 11:05 AM EST) P athologist Signature POC Glucose 168 65 - [address] [facility] Comment: Supplemental ranges: <140 mg/dL before meals <180 mg/dL all other times of the day Specimen Anatomical Collection Method Collection Time Receive d Time (Source) Location / / Volume Laterality Blood specimen 07/07/2017 11:05 7 (specimen) AM EST 11:05 AM EST Daphne Shahid MD POINT OF CARE TEST ORDERABLE S Performing Organization Address City/State/ZIP Code Phon e Number [address] POCT Glucose (07/07/2017 10:02 AM EST) P athologist Signature POC Glucose 191 65 - [address] [facility] Comment: Supplemental ranges: <140 mg/dL before meals <180 mg/dL all other times of the day Specimen Anatomical Collection Method Collection Time Receive d Time (Source) Location / / Volume Laterality Blood specimen 07/07/2017 10:02 7 (specimen) AM EST 10:02 AM EST Daphne Shahid MD POINT OF CARE TEST ORDERABLE S Performing Organization Address City/[facility]/ZIP Code Phon e Number [address] POCT Glucose (07/07/2017 7:53 AM EST) P athologist Signature POC Glucose 178 65 - 199 [place] mg/dL [facility] Comment: Supplemental ranges: <140 mg/dL before meals <180 mg/dL all other times of the day Specimen Anatomical Collection Method Collection Time Receive d Time (Source) Location / / Volume Laterality Blood specimen 07/07/2017 7:53 AM 017 7:53 (specimen) EST AM EST Daphne Shahid MD POINT OF CARE TEST ORDERABLE S Performing Organization Address City/[facility]/ZIP Code Phon e Number [address] POCT Glucose (07/07/2017 7:03 AM EST) P athologist Signature POC Glucose 188 65 - 199 [place] mg/dL [facility] Comment: Supplemental ranges: <140 mg/dL before meals <180 mg/dL all other times of the day Specimen Anatomical Collection Method Collection Time Receive d Time (Source) Location / / Volume Laterality Blood specimen 07/07/2017 7:03 AM 017 7:03 (specimen) EST AM EST Daphne Shahid MD POINT OF CARE TEST ORDERABLE S Performing Organization Address City/[facility]/[place] [address] (ABNORMAL) POCT Glucose (07/07/2017 6:17 AM EST) P athologist Signature POC Glucose 207 (H) 65 - 199 [facility] mg/dL [facility] Comment: Supplemental ranges: <140 mg/dL before meals <180 mg/dL all other times of the day Specimen Anatomical Collection Method Collection Time Receive d Time (Source) Location / / Volume Laterality Blood specimen 07/07/2017 6:17 AM 017 6:17 (specimen) EST AM EST Daphne Shahid MD POINT OF CARE TEST ORDERABLE S Performing Organization Address City/State/ZIP Code Phon e Number [address] Differential, Automated (07/07/2017 5:15 AM EST) P athologist Signature Neutrophils % 69.7 % [facility] Neutr Abs (ANC) 5.32 1.70 - [facility] 6.10 [facility] x10(3)/[facility] LABORATORY Lymphocytes % 16.3 % [facility] Lymphocytes Abs 1.2 0.9 - 3.2 [facility] x10(3)/[facility] LABORATORY Monocytes % 10.5 % [facility] Monocyte Abs 0.8 0.3 - 0.9 [facility] x10(3)/[facility] LABORATORY Eosinophils % 2.5 % [facility] Eosinophils Abs 0.2 0.0 - 0.4 [facility] x10(3)[facility] LABORATORY Basophils % 0.7 % [facility] Basophils Abs 0.0 0.0 - 0.1 [facility] x10(3)/[facility] LABORATORY Immature Gran % 0.30 % [...] Melisa Gran Abs 0.02 0.00 - 0.04 x10(3)/[facility]ORY Specimen Anatomical Collection Method Collection Time Receive d Time (Source) Location / / Volume Laterality Blood specimen 07/07/2017 5:15 AM 017 5:34 (specimen) EST AM EST Resulting Agency Comment Spec In Lab Daphne Shahid MD HEMATOLOGY ORDERABLES Performing Organization Address City/State/ZIP Code Phon e Number [address] (ABNORMAL) Hemogram (07/07/2017 5:15 AM EST) Analysis Performed At Patho logist Time Signature WBC 7.6 4.0 - 9.5 [facility] x10(3)/[facility] LABORATORY RBC 4.82 4.58 - [place] [facility] 5.54 [facility] x10(6)/[facility] LABORATORY Hemoglobin 14.4 13.7 - [facility] 16.5 gm/dL [facility] Hematocrit 42.1 40.5 - [facility] 48.5 % [facility] MCV 87.3 82.9 - [facility] 93.1 [facility]ORATORY MCH 29.9 27.5 - [facility] 32.1 pg [facility] MCHC 34.2 32.0 - [facility] 35.7 gm/dL [facility] Platelets 188 145 - 357 [facility] x10(3)/[facility] LABORATORY RDWSD 45.1 (H) 36.0 - [facility] 45.0 [facility] LABORATORY RDWCV 14.3 (H) 11.4 - [facility] 13.8 % [facility] MPV 9.4 7.6 - 12.9 [facility] LABORATORY nRBC % Auto 0.0 % [facility] nRBC Abs Auto 0.000 0.000 - [facility] 0.000 [facility] x10(3)/[facility] LABORATORY Specimen Anatomical Collection Method Collection Time Receive d Time (Source) Location / / Volume Laterality Blood specimen 07/07/2017 5:15 AM 017 5:34 (specimen) EST AM EST Resulting Agency Comment Spec In Lab Daphne Shahid MD HEMATOLOGY ORDERABLES Performing Organization Address City/State/Z[place] [address] (ABNORMAL) APTT (07/07/2017 5:15 AM EST) P athologist Signature PTT 69 (H) 25 - 35 sec [facility] Comment: The recommended therapeutic range for fu ll dose, unfractionated heparin at [facility] is 80 ? 114 seconds. The use [...] Shahid MD HEMATOLOGY ORDERABLES Performing Organization Address City/[facility]/ZIP Code Phon e Number [address] Magnesium (07/07/2017 5:15 AM EST) athologist Signature Magnesium 0.94 0.69 - 1.07 [facility] mmol/L [facility] Specimen Anatomical Collection Method Collection Time Receive d Time (Source) Location / / Volume Laterality Blood specimen 07/07/2017 5:15 AM 017 5:34 (specimen) EST AM EST Resulting Agency Comment Spec In Lab Daphne Shahid MD CHEMISTRY ORDERABLES Performing Organization Address City/[facility]/[place] [address] (ABNORMAL) Basic Metabolic Panel (non-fasting) (07/07/2017 5:15 AM EST) athologist Signature Glucose Lvl 203 (H) 65 - 199 [facility] mg/dL [facility] Comment: Diabetes: >=200 mg/dL plus symp toms BUN 15 10 - 20 mg/dL [facility] Creatinine 1.09 0.80 - 1.50 mg/dL [facility] Sodium 142 135 - [...] Anion Gap 14 5 - 15 mmol/L [facility] Calcium 8.6 8.5 - 10.5 mg/dL [facility] Estimated GFR >60 >=60 [facility] Comment: The reported eGFR should be multiplied b y 1.2 for patients. The MDRD is not an appropriate measure o f renal function for patients with body mass extremes or in patients with acute kidney failure. http://nScaled/DHnkdep http://nScaled/DHMCnkf Specimen Anatomical Collection Method Collection Time Receive d Time (Source) Location / / Volume Laterality Blood specimen 07/07/2017 5:15 AM 017 5:34 (specimen) EST AM EST Resulting Agency Comment Spec In Lab Daphne Shahid MD CHEMISTRY ORDERABLES Performing Organization Address City/State/ZIP Code Phon e Number [place] [id number]ORY Drive (ABNORMAL) Cardiac Enzymes (LEB/CGP) (07/07/2017 5:15 AM EST) P athologist Signature Troponin-T 2.07 (H) 0.00 - [facility] 0.00 ng/mL [facility] Comment: The 99th percentile for Troponin T is le ss than 0.01 ng/mL, any detectable cTnT concentration using this assay should be considered elevated. According to the third universal definit ion of myocardial infarction the following criteria with a clinical prese ntation consistent with acute myocardial ischemia meets the diagnosis for a myocardial infarction ([place]). Detection of a rise and/or fall of [...] additional sample may be indicated. Reference: Third [place] Definition of Myocardial Infarction. Journal of the [employer] College [employer] 2012;60:1581-98 CK, Total 88 0 - 200 unit/L [facility] Specimen Anatomical Collection Method Collection Time Receive d Time (Source) Location / / Volume Laterality Blood specimen 07/07/2017 5:15 AM 017 5:34 (specimen) EST AM EST Resulting Agency Comment Spec In Lab Daphne Shahid MD CHEMISTRY ORDERABLES Performing Organization Address City/[facility]/ZIP Code Phon e Number [address] POCT Glucose (07/07/2017 5:01 AM EST) P athologist Signature POC Glucose 182 65 - 199 [facility] mg/dL [facility] Comment: Supplemental ranges: <140 mg/dL before meals <180 mg/dL all other times of the day Specimen Anatomical Collection Method Collection Time Receive d Time (Source) Location / / Volume Laterality Blood specimen 07/07/2017 5:01 AM 017 5:01 (specimen) EST AM EST Daphne Shahid MD POINT OF CARE TEST ORDERABLE S Performing Organization Address City/[facility]/ZIP Code Phon e Number [address] POCT Glucose (07/07/2017 4:08 AM EST) P athologist Signature POC Glucose 199 65 - [address] [facility] Comment: Supplemental ranges: <140 mg/dL before meals <180 mg/dL all other times of the day Specimen Anatomical Collection Method Collection Time Receive d Time (Source) Location / / Volume Laterality Blood specimen 07/07/2017 4:08 AM 017 4:08 (specimen) EST AM EST Daphne Shahid MD POINT OF CARE TEST ORDERABLE S Performing Organization Address City/[facility]/ZIP Code Phon e Number [address] POCT Glucose (07/07/2017 3:03 AM EST) athologist Signature POC Glucose 188 65 - 199 [place] mg/dL [facility] Comment: Supplemental ranges: <140 mg/dL before meals <180 mg/dL all other times of the day Specimen Anatomical Collection Method Collection Time Receive d Time (Source) Location / / Volume Laterality Blood specimen 07/07/2017 3:03 AM 017 3:03 (specimen) EST AM EST Daphne Shahid MD POINT OF CARE TEST ORDERABLE S Performing Organization Address City/State/[place] [address] (ABNORMAL) POCT Glucose (07/07/2017 2:08 AM EST) athologist Signature POC Glucose 200 (H) 65 - [address] [facility] Comment: Supplemental ranges: <140 mg/dL before meals <180 mg/dL all other times of the day Specimen Anatomical Collection Method Collection Time Receive d Time (Source) Location / / Volume Laterality Blood specimen 07/07/2017 2:08 AM 017 2:08 (specimen) EST AM EST Daphne Shahid MD POINT OF CARE TEST ORDERABLE S Performing Organization Address City/State/[place] [address] (ABNORMAL) POCT Glucose (07/07/2017 1:31 AM EST) athologist Signature POC Glucose 209 (H) 65 - 199 [place] mg/dL [facility] Comment: Supplemental ranges: <140 mg/dL before meals <180 mg/dL all other times of the day Specimen Anatomical Collection Method Collection Time Receive d Time (Source) Location / / Volume Laterality Blood specimen 07/07/2017 1:31 AM 017 1:31 (specimen) EST AM EST Daphne Shahid MD POINT OF CARE TEST ORDERABLE S Performing Organization Address City/State/[place] [address] XR Chest PA or [...] Signature POC Glucose 161 65 - 199 [facility] mg/dL [facility] Comment: Supplemental ranges: <140 mg/dL before meals <180 mg/dL all other times of the day Specimen Anatomical Collection Method Collection Time Receive d Time (Source) Location / / Volume Laterality Blood specimen 07/07/2017 12:07 7 (specimen) AM EST 12:07 AM EST Daphne Shahid MD POINT OF CARE TEST ORDERABLE S Performing Organization Address City/State/[place] [address] (ABNORMAL) APTT (07/07/2017 12:00 AM EST) athologist Signature PTT 103 (H) 25 - 35 sec [facility] Comment: The recommended therapeutic range for fu ll dose, unfractionated heparin at [facility] is 80 ? 114 seconds. The use [...] Shahid MD HEMATOLOGY ORDERABLES Performing Organization Address City/[facility]/ZIP Code Phon e Number [address] POCT Glucose (07/06/2017 9:55 PM EST) athologist Signature POC Glucose 109 65 - [address] [facility] Comment: Supplemental ranges: <140 mg/dL before meals <180 mg/dL all other times of the day Specimen Anatomical Collection Method Collection Time Receive d Time (Source) Location / / Volume Laterality Blood specimen 07/06/2017 9:55 PM 017 9:55 (specimen) EST PM EST Daphne Shahid MD POINT OF CARE TEST ORDERABLE S Performing Organization Address City/[facility]/ZIP Code Phon e Number [address] POCT Glucose (07/06/2017 9:04 PM EST) athologist Signature POC Glucose 120 65 - [address] [facility] Comment: Supplemental ranges: <140 mg/dL before meals <180 mg/dL all other times of the day Specimen Anatomical Collection Method Collection Time Receive d Time (Source) Location / / Volume Laterality Blood specimen 07/06/2017 9:04 PM 017 9:04 (specimen) EST PM EST Daphne Shahid MD POINT OF CARE TEST ORDERABLE S Performing Organization Address City/[facility]/ZIP Code [place] [address] POCT Glucose (07/06/2017 7:45 PM EST) athologist Signature POC Glucose 158 65 - [address] [facility]dL [facility] Comment: Supplemental ranges: <140 mg/dL before meals <180 mg/dL all other times of the day Specimen Anatomical Collection Method Collection Time Receive d Time (Source) Location / / Volume Laterality Blood specimen 07/06/2017 7:45 PM 017 7:45 (specimen) EST PM EST Daphne Shahid MD POINT OF CARE TEST ORDERABLE S Performing Organization Address City/[facility]/[place] [address] Potassium (07/06/2017 7:40 PM EST) athologist [facility] Potassium 3.9 3.5 - 5.0 [facility] mmol/L [facility] Comment: Please note: ??Patients with WBC [...] Organization Address City/State/[place] [address] (ABNORMAL) Cardiac Enzymes (LEB/CGP) (07/06/2017 7:40 PM EST) athologist Signature Troponin-T 2.27 (H) 0.00 - [place] 0.[place] ng/mL [facility] Comment: The 99th percentile for Troponin T is le ss than 0.01 ng/mL, any detectable cTnT concentration using this assay should be considered elevated. According to the third universal definit ion of myocardial infarction the following criteria with a clinical prese ntation consistent with acute myocardial ischemia meets the diagnosis for a myocardial infarction ([place]). Detection of a rise and/or fall of [...] additional sample may be indicated. Reference: Third [place] Definition of Myocardial Infarction. Journal of the [employer] Cardiology 2012;60:1581-98 CK, Total 93 0 - 200 unit/L [facility] Specimen Anatomical Collection Method Collection Time Receive d Time (Source) Location / / Volume Laterality Blood specimen 07/06/2017 7:40 PM 017 7:52 (specimen) EST PM EST Resulting Agency Comment Spec In Lab Daphne Shahid MD CHEMISTRY ORDERABLES Performing Organization Address City/State/[place] [address] (ABNORMAL) POCT Glucose (07/06/2017 7:13 PM EST) P athologist Signature POC Glucose 200 (H) 65 - 199 [facility] mg/dL [facility] Comment: Supplemental ranges: <140 mg/dL before meals <180 mg/dL all other times of the day Specimen Anatomical Collection Method Collection Time Receive d Time (Source) Location / / Volume Laterality Blood specimen 07/06/2017 7:13 PM 017 7:13 (specimen) EST PM EST Daphne Shahid MD POINT OF CARE TEST ORDERABLE S Performing Organization Address City/State/[place] [address] (ABNORMAL) APTT (07/06/2017 6:15 PM EST) athologist Signature PTT 94 (H) 25 - 35 sec [facility] Comment: The recommended therapeutic range for fu ll dose, unfractionated heparin at [facility] is 80 ? 114 seconds. The use [...] Shahid MD HEMATOLOGY ORDERABLES Performing Organization Address City/[facility]/ZIP Code Phon e Number [address] (ABNORMAL) POCT Glucose (07/06/2017 6:03 PM EST) athologist Signature POC Glucose 236 (H) 65 - 199 [facility] mg/dL [facility] Comment: Supplemental ranges: <140 mg/dL before meals <180 mg/dL all other times of the day Specimen Anatomical Collection Method Collection Time Receive d Time (Source) Location / / Volume Laterality Blood specimen 07/06/2017 6:03 PM 017 6:03 (specimen) EST PM EST Daphne Shahid MD POINT OF CARE TEST ORDERABLE S Performing Organization Address City/[facility]/[place] [address] (ABNORMAL) POCT Glucose (07/06/2017 5:01 PM EST) athologist Signature POC Glucose 235 (H) 65 - [address] [facility] Comment: Supplemental ranges: <140 mg/dL before meals <180 mg/dL all other times of the day Specimen Anatomical Collection Method Collection Time Receive d Time (Source) Location / / Volume Laterality Blood specimen 07/06/2017 5:01 PM 017 5:01 (specimen) EST PM EST Daphne Shahid MD POINT OF CARE TEST ORDERABLE S Performing Organization Address City/[facility]/[place] [address] (ABNORMAL) POCT Glucose (07/06/2017 4:06 PM EST) athologist Signature POC Glucose 202 (H) 65 - [address] [facility] Comment: Supplemental ranges: <140 mg/dL before meals <180 mg/dL all other times of the day Specimen Anatomical Collection Method Collection Time Receive d Time (Source) Location / / Volume Laterality Blood specimen 07/06/2017 4:06 PM 017 4:06 (specimen) EST PM EST Daphne Shahid MD POINT OF CARE TEST ORDERABLE S Performing Organization Address City/State/[place] [address] POCT Glucose (07/06/2017 2:59 PM EST) athologist Signature POC Glucose 178 65 - 199 [facility] mg/dL [facility] Comment: Supplemental ranges: <140 mg/dL before meals <180 mg/dL all other times of the day Specimen Anatomical Collection Method Collection Time Receive d Time (Source) Location / / Volume Laterality Blood specimen 07/06/2017 2:59 PM 017 2:59 (specimen) EST PM EST Daphne Shahid MD POINT OF CARE TEST ORDERABLE S Performing Organization Address City/State/ZIP [place] [address] (ABNORMAL) Cardiac Enzymes (LEB/CGP) (07/06/2017 2:10 PM EST) athologist Signature Troponin-T 2.34 (H) 0.[address] [facility] ng/mL [facility] Comment: The 99th percentile for Troponin T is le ss than 0.01 ng/mL, any detectable cTnT concentration using this assay should be considered elevated. According to the third universal definit ion of myocardial infarction the following criteria with a clinical prese ntation consistent with acute myocardial ischemia meets the diagnosis for a myocardial infarction ([place]). Detection of a rise and/or fall of [...] additional sample may be indicated. Reference: Third [place] Definition of Myocardial Infarction. Journal of the [employer]iology 2012;60:1581-98 CK, Total 101 0 - 200 unit/L [facility] Specimen Anatomical Collection Method Collection Time Receive d Time (Source) Location / / Volume Laterality Blood specimen 07/06/2017 2:10 PM 017 2:26 (specimen) EST PM EST Resulting Agency Comment Spec In Lab Daphne Shahid MD CHEMISTRY ORDERABLES Performing Organization Address City/[facility]/ZIP Code Phon e Number [address] POCT Glucose (07/06/2017 2:08 PM EST) athologist Signature POC Glucose 192 65 - 199 [facility] mg/dL [facility] Comment: Supplemental ranges: <140 mg/dL before meals <180 mg/dL all other times of the day Specimen Anatomical Collection Method Collection Time Receive d Time (Source) Location / / Volume Laterality Blood specimen 07/06/2017 2:08 PM 017 2:08 (specimen) EST PM EST Daphne Shahid MD POINT OF CARE TEST ORDERABLE S Performing Organization Address City/[facility]/ZIP [facility] Phon e Number [address] POCT Glucose (07/06/2017 1:04 PM EST) athologist Signature POC Glucose 162 65 - 199 [facility] mg/dL [facility] Comment: Supplemental ranges: <140 mg/dL before meals <180 mg/dL all other times of the day Specimen Anatomical Collection Method Collection Time Receive d Time (Source) Location / / Volume Laterality Blood specimen 07/06/2017 1:04 PM 017 1:04 (specimen) EST PM EST Daphne Shahid MD POINT OF CARE TEST ORDERABLE S Performing Organization Address City/[facility]/ZIP Code Phon e Number [address] POCT Glucose (07/06/2017 12:05 PM EST) P athologist Signature POC Glucose 196 65 - 199 [facility] mg/dL [facility] Comment: Supplemental ranges: <140 mg/dL before meals <180 mg/dL all other times of the day Specimen Anatomical Collection Method Collection Time Receive d Time (Source) Location / / Volume Laterality Blood specimen 07/06/2017 12:05 7 (specimen) PM EST 12:05 PM EST Daphne Shahid MD POINT OF CARE TEST ORDERABLE S Performing Organization Address City/[facility]/[place] [address] EKG 12 Lead (07/06/2017 12:00 PM EST) Component Value Ref Range Test Analysis Performed Pathologis t Method Time At Signature Ventricular rate 91 BPM MUSE SYSTEM Atrial Rate 91 BPM MUSE SYSTEM P-R Interval 140 ms MUSE SYSTEM QRS Duration 94 ms MUSE SYSTEM Q-T Interval 394 ms MUSE SYSTEM QTC Calculated 484 ms MUSE SYSTEM (Bezet) Calculated P [place] 36 degrees MUSE SYSTEM Calculated R [place] -19 degrees MUSE SYSTEM Calculated T [place] 104 degrees MUSE SYSTEM INTERPRETATION Normal sinus rhythm MUSE SYSTEM 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) ST & T wave abnormality, consider lateral ischemia Abnormal ECG When compared with ECG of 05-JUL-2017 20:39, No significant change was found Confirmed by MD Verma Gregory A. ([id number]) on 07/06/2017 5:07:33 PM Specimen Anatomical Collection Method Collection Time Receive d Time (Source) Location / / Volume Laterality 07/06/2017 12:00 07/06/2017 5:07 PM EST PM EST Daphne Shahid MD ECG ORDERABLES Performing Organization Address City/State/ZIP Code Phon e Number MUSE SYSTEM ABORH Recheck Status (07/06/2017 12:00 PM EST) [facility] Method Time Signature ABORH Type Completed [facility] LABORATORY Specimen Anatomical Collection Method Collection Time Receive d Time (Source) Location / / Volume Laterality Blood specimen 07/06/2017 12:00 7 (specimen) PM EST 12:24 PM EST Resulting Agency Comment Spec In Lab Daphne Shahid MD BLOOD BANK ORDERABLES Performing Organization Address City/State/ZIP Code Phon e Number [address] Antibody screen (07/06/2017 12:00 PM EST) [facility] Method [place] Signature Ab Screen Negative [facility] LABORATORY Expires at 07/09/2017 [facility] [id number] on: [facility] Specimen Anatomical Collection Method Collection Time Receive d Time (Source) Location / / Volume Laterality Blood specimen 07/06/2017 12:00 7 (specimen) PM EST 12:24 PM EST Resulting Agency Comment Spec In Lab Daphne Shahid MD BLOOD BANK ORDERABLES Performing Organization Address City/State/ZIP Code Phon e Number [address] ABO/Rh Typing (07/06/2017 12:00 [...] Organization Address City/State/[place] [address] Prothrombin Time (07/06/2017 11:24 AM EST) P athologist Signature PT 13.3 11.8 - 14.0 [facility] LABORATORY INR 1.0 0.9 - 1.1 [facility] [...] Shahid MD HEMATOLOGY ORDERABLES Performing Organization Address City/[facility]/ZIP Code Phon e Number [address] (ABNORMAL) APTT (07/06/2017 11:24 AM EST) P athologist Signature PTT 52 (H) 25 - 35 sec [facility] Comment: The recommended therapeutic range for fu ll dose, unfractionated heparin at [facility] is 80 ? 114 seconds. The use [...] Shahid MD HEMATOLOGY ORDERABLES Performing Organization Address City/[facility]/ZIP [place] [address] POCT Glucose (07/06/2017 11:02 AM EST) P athologist Signature POC Glucose 187 65 - 199 [facility] mg/dL [facility] Comment: Supplemental ranges: <140 mg/dL before meals <180 mg/dL all other times of the day Specimen Anatomical Collection Method Collection Time Receive d Time (Source) Location / / Volume Laterality Blood specimen 07/06/2017 11:02 7 (specimen) AM EST 11:02 AM EST Daphne Shahid MD POINT OF CARE TEST ORDERABLE S Performing Organization Address City/State/ZIP Code Phon e Number [address] POCT Glucose (07/06/2017 10:18 AM EST) athologist Signature POC Glucose 193 65 - 199 [place] mg/dL [facility] Comment: Supplemental ranges: <140 mg/dL before meals <180 mg/dL all other times of the day Specimen Anatomical Collection Method Collection Time Receive d Time (Source) Location / / Volume Laterality Blood specimen 07/06/2017 10:18 7 (specimen) AM EST 10:18 AM EST Daphne Shahid MD POINT OF CARE TEST ORDERABLE S Performing Organization Address City/[facility]/ZIP Code Phon e Number [address] POCT Glucose (07/06/2017 9:25 AM EST) athologist Signature POC Glucose 182 65 - [address] [facility] Comment: Supplemental ranges: <140 mg/dL before meals <180 mg/dL all other times of the day Specimen Anatomical Collection Method Collection Time Receive d Time (Source) Location / / Volume Laterality Blood specimen 07/06/2017 9:25 AM 017 9:25 (specimen) EST AM EST Daphne Shahid MD POINT OF CARE TEST ORDERABLE S Performing Organization Address City/[facility]/[place]IP [place] [address] (ABNORMAL) Cardiac Enzymes (LEB/CGP) (07/06/2017 8:10 AM EST) athologist Signature Troponin-T 2.26 (H) 0.00 - [facility] ng/mL [facility] Comment: The 99th percentile for Troponin T is le ss than 0.01 ng/mL, any detectable cTnT concentration using this assay should be considered elevated. According to the third universal definit ion of myocardial infarction the following criteria with a clinical prese ntation consistent with acute myocardial ischemia meets the diagnosis for a myocardial infarction ([place]). Detection of a rise and/or fall of [...] additional sample may be indicated. Reference: Third [place] Definition of Myocardial Infarction. Journal of the [employer] College of Cardiology 2012;60:1581-98 CK, Total 124 0 - 200 unit/L [facility] Specimen Anatomical Collection Method Collection Time Receive d Time (Source) Location / / Volume Laterality Blood specimen 07/06/2017 8:10 AM 017 8:23 (specimen) EST AM EST Resulting Agency Comment Spec In Lab Daphne Shahid MD CHEMISTRY ORDERABLES Performing Organization Address City/State/ZIP Code Phon e Number [address] Magnesium (07/06/2017 8:10 AM EST) P athologist Signature Magnesium 0.84 0.69 - 1.07 [facility]/L [facility] Specimen Anatomical Collection Method Collection Time Receive d Time (Source) Location / / Volume Laterality Blood specimen 07/06/2017 8:10 AM 017 8:21 (specimen) EST AM EST Resulting Agency Comment Spec In Lab Daphne Shahid MD CHEMISTRY ORDERABLES Performing Organization Address City/[facility]/ZIP Code Phon e Number [address] (ABNORMAL) Basic Metabolic Panel (non-fasting) (07/06/2017 8:10 AM EST) athologist Signature Glucose Lvl 199 65 - 199 [facility] mg/dL [facility] Comment: Diabetes: >=200 mg/dL plus symp toms BUN 16 10 - 20 mg/dL [facility] Creatinine 1.04 0.80 - 1.50 mg/dL [facility] LAB[facility] Sodium 141 135 - [...] or in patients with acute kidney failure. http://nScaled/DHnkdep http://[email or web address]/DHMCnkf Specimen Anatomical Collection Method Collection Time Receive d Time (Source) Location / / Volume Laterality Blood specimen 07/06/2017 8:10 AM 017 8:21 (specimen) EST AM EST Resulting Agency Comment Spec In Lab Daphne Shahid MD CHEMISTRY ORDERABLES Performing Organization Address City/State/[place] [address] POCT Glucose (07/06/2017 7:34 AM EST) P athologist Signature POC Glucose 198 65 - 199 [facility] mg/dL [facility] Comment: Supplemental ranges: <140 mg/dL before meals <180 mg/dL all other times of the day Specimen Anatomical Collection Method Collection Time Receive d Time (Source) Location / / Volume Laterality Blood specimen 07/06/2017 7:34 AM 017 7:34 (specimen) EST AM EST Daphne Shahid MD POINT OF CARE TEST ORDERABLE S Performing Organization Address City/State/ZIP Code Phon e Number [address] POCT Glucose (07/06/2017 7:03 AM EST) P athologist Signature POC Glucose 181 65 - 199 [facility] mg/dL [facility] Comment: Supplemental ranges: <140 mg/dL before meals <180 mg/dL all other times of the day Specimen Anatomical Collection Method Collection Time Receive d Time (Source) Location / / Volume Laterality Blood specimen 07/06/2017 7:03 AM 017 7:03 (specimen) EST AM EST Daphne Shahid MD POINT OF CARE TEST ORDERABLE S Performing Organization Address City/State/[place] [address] XR Chest PA or [...] Signature POC Glucose 172 65 - [address] [facility] Comment: Supplemental ranges: <140 mg/dL before meals <180 mg/dL all other times of the day Specimen Anatomical Collection Method Collection Time Receive d Time (Source) Location / / Volume Laterality Blood specimen 07/06/2017 6:21 AM 017 6:21 (specimen) EST AM EST Daphne Shahid MD POINT OF CARE TEST ORDERABLE S Performing Organization Address City/[facility]/ZIP [place] [address] POCT Glucose (07/06/2017 5:08 AM EST) athologist Signature POC Glucose 154 65 - [address] [facility] Comment: Supplemental ranges: <140 mg/dL before meals <180 mg/dL all other times of the day Specimen Anatomical Collection Method Collection Time Receive d Time (Source) Location / / Volume Laterality Blood specimen 07/06/2017 5:08 AM 017 5:08 (specimen) EST AM EST Daphne Shahid MD POINT OF CARE TEST ORDERABLE S Performing Organization Address City/State/[place] [address] POCT Glucose (07/06/2017 4:05 AM EST) athologist Signature POC Glucose 142 65 - 199 [facility] mg/dL [facility] Comment: Supplemental ranges: <140 mg/dL before meals <180 mg/dL all other times of the day Specimen Anatomical Collection Method Collection Time Receive d Time (Source) Location / / Volume Laterality Blood specimen 07/06/2017 4:05 AM 017 4:05 (specimen) EST AM EST Daphne Shahid MD POINT OF CARE TEST ORDERABLE S Performing Organization Address City/State/ZIP Code Phon e Number [address] POCT Glucose (07/06/2017 3:00 AM EST) athologist Signature POC Glucose 116 65 - 199 [facility] mg/dL [facility] Comment: Supplemental ranges: <140 mg/dL before meals <180 mg/dL all other times of the day Specimen Anatomical Collection Method Collection Time Receive d Time (Source) Location / / Volume Laterality Blood specimen 07/06/2017 3:00 AM 017 3:00 (specimen) EST AM EST Daphne Shahid MD POINT OF CARE TEST ORDERABLE S Performing Organization Address City/State/ZIP Code Phon e Number [address] Potassium (07/06/2017 2:20 AM EST) athologist Signature Potassium 3.9 3.5 - 5.0 [facility] mmol/L [facility] Comment: Please note: ??Patients with WBC [...] Shahid MD CHEMISTRY ORDERABLES Performing Organization Address City/[facility]/ZIP Code Phon e Number [place] [phone]OS[address] Differential, Automated (07/06/2017 2:20 AM EST) P athologist Signature Neutrophils % 72.9 % [facility] Neutr Abs (ANC) 5.53 1.70 - [facility] 6.10 [facility] x10(3)/[facility] LABORATORY Lymphocytes % 16.4 % [facility] Lymphocytes Abs 1.2 0.9 - 3.2 [facility] x10(3)/[facility] LABORATORY Monocytes % 9.4 % [facility] Monocyte Abs 0.7 0.3 - 0.9 [facility] x10(3)/[facility] LABORATORY Eosinophils % 0.5 % [facility] Eosinophils Abs 0.0 0.0 - 0.4 [facility] x10(3)/[facility] LABORATORY Basophils % 0.4 % [facility] Basophils Abs 0.0 0.0 - 0.1 [facility] x10(3)/[facility] LABORATORY Immature Gran % 0.40 % [...] Melisa Gran Abs 0.03 0.00 - 0.04 x10(3)/[facility] MAR Y [facility] LABORATORY Specimen Anatomical Collection Method Collection Time Receive d Time (Source) Location / / Volume Laterality Blood specimen 07/06/2017 2:20 AM 017 2:33 (specimen) EST AM EST Resulting Agency Comment Spec In Lab Daphne Shahid MD HEMATOLOGY ORDERABLES Performing Organization Address City/State/ZIP Code Phon e Number [place] [phone]OS[address] (ABNORMAL) Hemogram (07/06/2017 2:20 AM EST) Analysis Performed At Patho logist Time Signature WBC 7.6 4.0 - 9.5 [facility] x10(3)/[facility] LABORATORY RBC 4.52 (L) 4.58 - [place] 5.54 [facility] x10(6)/[facility] LABORATORY Hemoglobin 13.4 (L) 13.7 - [facility] 16.[facility] gm/dL [facility] Hematocrit 39.7 (L) 40.5 - [facility] 48.5 % [facility] MCV 87.8 82.9 - [facility] 93.1 [facility] LABORATORY MCH 29.6 27.5 - [facility] 32.1 pg [facility] MCHC 33.8 32.0 - [facility] 35.7 gm/dL [facility] Platelets 189 145 - 357 [facility] x10(3)/[facility] RDWSD 45.6 (H) 36.0 - [facility] 45.0 [facility] LABORATORY RDWCV 14.3 (H) 11.4 - [facility] 13.8 % [facility] MPV 9.1 7.6 - 12.9 [facility] LABORATORY nRBC % Auto 0.0 % [facility] nRBC Abs Auto 0.000 0.000 - [facility] 0.000 [facility] x10(3)/[facility] LABORATORY Specimen Anatomical Collection Method Collection Time Receive d Time (Source) Location / / Volume Laterality Blood specimen 07/06/2017 2:20 AM 017 2:33 (specimen) EST AM EST Resulting Agency Comment Spec In Lab Daphne Shahid MD HEMATOLOGY ORDERABLES Performing Organization Address City/State/[place] [address] (ABNORMAL) APTT (07/06/2017 2:20 AM EST) P athologist Signature PTT 52 (H) 25 - 35 sec [facility] Comment: The recommended therapeutic range for fu ll dose, unfractionated heparin at [facility] is 80 ? 114 seconds. The use [...] Organization Address City/State/ZIP Code Phon e Number [address] POCT Glucose (07/06/2017 2:20 AM EST) athologist Signature POC Glucose 115 65 - 199 [facility] mg/dL [facility] Comment: Supplemental ranges: <140 mg/dL before meals <180 mg/dL all other times of the day Specimen Anatomical Collection Method Collection Time Receive d Time (Source) Location / / Volume Laterality Blood specimen 07/06/2017 2:20 AM 017 2:20 (specimen) EST AM EST Daphne Shahid MD POINT OF CARE TEST ORDERABLE S Performing Organization Address City/State/[place] [address] (ABNORMAL) Cardiac Enzymes (LEB/CGP) (07/06/2017 2:20 AM EST) athologist Signature Troponin-T 2.13 (H) 0.00 - [place] 0.00 ng/mL [facility] Comment: The 99th percentile for Troponin T is le ss than 0.01 ng/mL, any detectable cTnT concentration using this assay should be considered elevated. According to the third universal definit ion of myocardial infarction the following criteria with a clinical prese ntation consistent with acute myocardial ischemia meets the diagnosis for a myocardial infarction ([place]). Detection of a rise and/or fall of [...] additional sample may be indicated. Reference: Third [place] Definition of Myocardial Infarction. Journal of the [employer] College of Cardiology 2012;60:1581-98 CK, Total 129 0 - 200 unit/L [facility] Specimen Anatomical Collection Method Collection Time Receive d Time (Source) Location / / Volume Laterality Blood specimen 07/06/2017 2:20 AM 017 2:33 (specimen) EST AM EST Resulting Agency Comment Spec In Lab Daphne Shahid MD CHEMISTRY ORDERABLES Performing Organization Address City/State/[place] [address] (ABNORMAL) Hemoglobin A1c (07/06/2017 [...] Mellitus, Diabetes Care 2013; 36: Suppl. 1, S67-41 Est Avg Gluc See note mg/dL [facility] [...] into estimated average glucose values. ??Diabetes Care 2008:31(8):3277-4761. Specimen Anatomical Collection Method Collection Time Receive d Time (Source) Location / / Volume Laterality Blood specimen 07/06/2017 2:20 AM 017 2:34 (specimen) EST AM EST Resulting Agency Comment Spec In Lab Daphne Shahid MD CHEMISTRY ORDERABLES Performing Organization Address City/State/ZIP Code Phon e Number [place] [phone]OS[address] (ABNORMAL) Lipid Panel (07/06/2017 2:20 AM EST) [facility] Method Time Signature Chol, Total 150 <=239 [place] mg/dL [facility] Triglycerides 129 <=199 [place] mg/dL [facility] HDL 32 (L) >=40 [place] mg/dL [facility] LDL Cholesterol 92 <=190 [place] mg/dL [facility] Chol/HDL Ratio 4.7 ratio [facility] Lipid See Note [place] Interpretation [facility] Comment: Lipid management should be guided by a p atient? s ASCVD risk, goals and preferences. ACC/AHA Guidelines recommend high intens ity statin if clinical ASCVD or LDL greater than or equal to 190 mg/dL. http://WhereNeturl.com/DJA-EMG-Fdelqacly Adults aged 40-75 with LDL 70-189 mg/dL should have their 10 year ASCVD risk estimated with the ACC/AHA ASCVD risk es timator http://tools.acc.org/QHQRC-Feit-Rtvadwwb r/ Statin should be discussed if risk [...] Organization Address City/State/ZIP Code Phon e Number [address] POCT Glucose (07/06/2017 1:09 AM EST) athologist Signature POC Glucose 121 65 - 199 [facility] mg/dL [facility] Comment: Supplemental ranges: <140 mg/dL before meals <180 mg/dL all other times of the day Specimen Anatomical Collection Method Collection Time Receive d Time (Source) Location / / Volume Laterality Blood specimen 07/06/2017 1:09 AM 017 1:09 (specimen) EST AM EST Daphne Shahid MD POINT OF CARE TEST ORDERABLE S Performing Organization Address City/State/[place] [address] POCT Glucose (07/06/2017 12:06 AM EST) athologist Signature POC Glucose 147 65 - [address] [facility] Comment: Supplemental ranges: <140 mg/dL before meals <180 mg/dL all other times of the day Specimen Anatomical Collection Method Collection Time Receive d Time (Source) Location / / Volume Laterality Blood specimen 07/06/2017 12:06 7 (specimen) AM EST 12:06 AM EST Daphne Shahid MD POINT OF CARE TEST ORDERABLE S Performing Organization Address City/State/[place] [address] (ABNORMAL) POCT Glucose (07/05/2017 10:56 PM EST) P athologist Signature POC Glucose 200 (H) 65 - 199 [place] mg/dL [facility] Comment: Supplemental ranges: <140 mg/dL before meals <180 mg/dL all other times of the day Specimen Anatomical Collection Method Collection Time Receive d Time (Source) Location / / Volume Laterality Blood specimen 07/05/2017 10:56 7 (specimen) PM EST 10:56 PM EST Daphne Shahid MD POINT OF CARE TEST ORDERABLE S Performing Organization Address City/State/[place] [address] (ABNORMAL) POCT Glucose (07/05/2017 10:05 PM EST) P athologist Signature POC Glucose 225 (H) 65 - 199 [place] mg/dL [facility] Comment: Supplemental ranges: <140 mg/dL before meals <180 mg/dL all other times of the day Specimen Anatomical Collection Method Collection Time Receive d Time (Source) Location / / Volume Laterality Blood specimen 07/05/2017 10:05 7 (specimen) PM EST 10:05 PM EST Daphne Shahid MD POINT OF CARE TEST ORDERABLE S Performing Organization Address City/State/[place] [address] (ABNORMAL) POCT Glucose (07/05/2017 9:02 PM EST) P athologist Signature POC Glucose 301 (H) 65 - 199 [place] mg/dL [facility] Comment: Supplemental ranges: <140 mg/dL before meals <180 mg/dL all other times of the day Specimen Anatomical Collection Method Collection Time Receive d Time (Source) Location / / Volume Laterality Blood specimen 07/05/2017 9:02 PM 017 9:02 (specimen) EST PM EST Daphne Shahid MD POINT OF CARE TEST ORDERABLE S Performing Organization Address City/State/ZIP Code Phon e Number [place] [phone]OS[address] XR Chest PA or [...] 474 ms MUSE SYSTEM (Bezet) Calculated P [place] 50 degrees MUSE SYSTEM Calculated R [place] -28 degrees MUSE SYSTEM Calculated T [place] 90 degrees MUSE SYSTEM INTERPRETATION Sinus tachycardia [...] (ABNORMAL) Differential, Automated (07/05/2017 8:20 PM EST) [facility] gist Method Time Signature Neutrophils % 88.4 % [facility] Neutr Abs (ANC) 9.08 (H) 1.70 - [facility] 6.10 [facility] x10(3)/[facility] L LABORATORY Lymphocytes % 7.0 % [facility] Lymphocytes Abs 0.7 (L) 0.9 - 3.2 [facility] x10(3)/[facility] LABORATORY Monocytes % 3.7 % [facility] Monocyte Abs 0.4 0.3 - 0.9 [facility] x10(3)/[facility] LABORATORY Eosinophils % 0.1 % [facility] Eosinophils Abs 0.0 0.0 - 0.4 [facility] x10(3)/[facility] LABORATORY Basophils % 0.2 % [facility] Basophils Abs 0.0 0.0 - 0.1 [facility] x10(3)/[facility] LABORATORY Immature Gran % 0.60 % [...] Gran Abs 0.06 (H) 0.00 - 0.04 x10(3)/[facility] LABORATORY Specimen Anatomical Collection Method Collection Time Receive d Time (Source) Location / / Volume Laterality Blood specimen 07/05/2017 8:20 PM 017 8:27 (specimen) EST PM EST Resulting Agency Comment Spec In Lab Daphne Shahid MD HEMATOLOGY ORDERABLES Performing Organization Address City/State/[place] [address] (ABNORMAL) Hemogram (07/05/2017 8:20 PM EST) Analysis Performed At Patho logist Time Signature WBC 10.3 (H) 4.0 - 9.5 [facility] x10(3)/[facility] LABORATORY RBC 4.64 4.58 - [facility] 5.54 [facility] x10(6)/[facility] LABORATORY Hemoglobin 14.1 13.7 - [facility] 16.5 gm/dL [facility] Hematocrit 40.8 40.5 - [facility] 48.5 % [facility] MCV 87.9 82.9 - [facility] 93.1 [facility] LABORATORY MCH 30.4 27.5 - [facility] 32.1 pg [facility] MCHC 34.6 32.0 - [facility] 35.7 gm/dL [facility] Platelets 204 145 - 357 [facility] x10(3)/[facility] LABORATORY RDWSD 46.1 (H) 36.0 - [facility] 45.0 [facility] LABORATORY RDWCV 14.5 (H) 11.4 - [facility] 13.8 % [facility] MPV 9.7 7.6 - 12.9 [facility] LABORATORY nRBC % Auto 0.0 % [facility] LABORATORY nRBC Abs Auto 0.000 0.000 - [facility] 0.000 [facility] x10(3)/[facility] LABORATORY Specimen Anatomical Collection Method Collection Time Receive d Time (Source) Location / / Volume Laterality Blood specimen 07/05/2017 8:20 PM 017 8:27 (specimen) EST PM EST Resulting Agency Comment Spec In Lab Daphne Shahid MD HEMATOLOGY ORDERABLES Performing Organization Address City/[facility]/ZIP Code Phon e Number [address] APTT (07/05/2017 8:20 PM EST) athologist Signature PTT 32 25 - 35 sec [facility] LABORATORY Comment: The recommended therapeutic range for fu ll dose, unfractionated heparin at [facility] is 80 ? 114 seconds. The use [...] Shahid MD HEMATOLOGY ORDERABLES Performing Organization Address City/[facility]/ZIP [facility] [place] [address] (ABNORMAL) Cardiac Enzymes (LEB/CGP) (07/05/2017 8:20 PM EST) athologist Signature Troponin-T 2.11 (H) 0.00 - [facility] 0.00 ng/mL [facility] Comment: The 99th percentile for Troponin T is le ss than 0.01 ng/mL, any detectable cTnT concentration using this assay should be considered elevated. According to the third universal definit ion of myocardial infarction the following criteria with a clinical prese ntation consistent with acute myocardial ischemia meets the diagnosis for a myocardial infarction ([place]). Detection of a rise and/or fall of [...] additional sample may be indicated. Reference: Third [place] Definition of Myocardial Infarction. Journal of the British College of Cardiology 2012;60:1581-98 CK, Total 149 0 - 200 unit/L [facility] LABORATORY Specimen Anatomical Collection Method Collection Time Receive d Time (Source) Location / / Volume Laterality Blood specimen 07/05/2017 8:20 PM 017 8:27 (specimen) EST PM EST Resulting Agency Comment Spec In Lab Daphne Shahid MD CHEMISTRY ORDERABLES Performing Organization Address City/[facility]/ZIP [place] [address] (ABNORMAL) Magnesium (07/05/2017 8:20 PM EST) P athologist Signature Magnesium 0.68 (L) 0.69 - 1.07 [facility] mmol/L [facility] Specimen Anatomical Collection Method Collection Time Receive d Time (Source) Location / / Volume Laterality Blood specimen 07/05/2017 8:20 PM 017 8:27 (specimen) EST PM EST Resulting Agency Comment Spec In Lab Daphne Shahid MD CHEMISTRY ORDERABLES Performing Organization Address City/[facility]/ZIP [place] [address] (ABNORMAL) Basic Metabolic Panel (non-fasting) (07/05/2017 8:20 PM EST) P athologist Signature Glucose Lvl 321 (H) 65 - 199 [facility] mg/dL [facility] Comment: Diabetes: >=200 mg/dL plus symp toms BUN 20 10 - 20 mg/dL [facility] LABORATORY Creatinine 1.12 0.80 - 1.50 mg/dL [facility] LABORATORY Sodium 139 135 - [...] Anion Gap 14 5 - 15 mmol/L [facility] LABORATORY Calcium 8.1 (L) 8.5 - 10.5 mg/dL [facility] LABORATORY Estimated GFR >60 >=60 [facility] LABORATORY Comment: The reported eGFR should be multiplied b y 1.2 for patients. The MDRD is not an appropriate measure o f renal function for patients with body mass extremes or in patients with acute kidney failure. http://nScaled/DHnkdep http://nScaled/DHMCnkf Specimen Anatomical Collection Method Collection Time Receive d Time (Source) Location / / Volume Laterality Blood specimen 07/05/2017 8:20 PM 017 8:27 (specimen) EST PM EST Resulting Agency Comment Spec In Lab Daphne Shahid MD CHEMISTRY ORDERABLES Performing Organization Address City/[facility]/[place] [address] (ABNORMAL) POCT Glucose (07/05/2017 7:32 PM EST) P athologist Signature POC Glucose 296 (H) 65 - 199 [facility] mg/dL [facility] Comment: Supplemental ranges: <140 mg/dL before meals <180 mg/dL all other times of the day Specimen Anatomical Collection Method Collection Time Receive d Time (Source) Location / / Volume Laterality Blood specimen 07/05/2017 7:32 PM 017 7:32 (specimen) EST PM EST Daphne Shahid MD POINT OF CARE TEST ORDERABLE S Performing Organization Address City/State/ZIP Code Phon e Number [facility] [place] [address] CARDIAC CATHETERIZATION (07/05/2017 6:47 PM EST) Specimen (Source) Anatomical Location Collection Method / Collectio n Time Received Time / Laterality Volume Narrative CARDIOMAC SYSTEM - 07/05/2017 7:27 PM ES T ?[facility] ? Cardiac Cathete rization/Intervention Report ? Patient Name: Natalya, Gregory ? Procedure Date: 07/05/2017 ? A #: [id number] ? Primary Physician: Jet Mckenna ? Case #: [id number] ? File Name: [id number] ? Catheterization Order Number: [id number] ? [facility] ? Final Report [place], [place] ? Patient Name: ? Gregory Natalya ?ID#: ?[id number] ? : ?1945 ? Procedure Date: ? [...] presented with: non -STEMI (w/i 7 days). [place] ?[employer]iovascular Society angina c lass was IV. [...] site angio graphy and IABP insertion in home performance laborer. ? Jet Mckenna M.D. ? Electronically Signed by: Jet bunch M.D. ? Report Finalized: 07/05/2017 ??19:23 ? Report Last Ammended: 10/26/2017 ??10:29 ? Procedure Note Jet Mckenna MD - 10/26/2017Formatt ing of this note might be different from the original. [facility] Cardiac Catheterization/Intervention Re port Patient Name: Gregory Hoang Procedure Date: 07/05/2017 A #: [id number] Primary Physician: Jet Mckenna Case #: [id number] File Name: [id number] Catheterization Order Number: [id number] [facility] Final Report [place], [place] Patient Name: Gregory Hoang ID#: [id number] : 1945 Procedure Date: July 05, [...] presented with: non-STEMI ( w/i 7 days). [place] [employer] angina class was IV. No [...] site angiograph y and IABP insertion in home performance laborer. Jet Mckenna M.D. Electronically Signed by: [...] E ? (Age): 1945(72y) Med Rec#: ? [id number] ?Sex: ?M ? Site Loc: ? [facility] ?Ht / Wt: ??173(cm)/86(kg) Pt. Loc: ?[facility] ? BSA: ?2 Study Date: ?? 07/05/2017 ?Pt. Type: Inpatient Tape: ? Referring: Daphne Shahid ([id number]) Referring: MANDA ALCANTAR Reading: Blade Preston ([id number]) Any Commodity Sales Deliverer: Dayami Paula BA [facility] Diagnosis: *ICD-10-PCS Non-ST elevation (NSTEMI) [...] E-wave Vmax ?0.8 ?m/sec ? MV deceleration [id number] ?msec ? MV A-wave Vmax ?0.8 ?m/sec [...] ? Mid-Inferior ?Akinetic ? Mid-Inferoseptal ?Hypokinetic ? [place]-Septal ? Akinetic ? [place]-Anterior ? Hypokinetic ? [place]-Lateral ?Hypokinetic ? [place]-Inferior ? Akinetic ? [place]-Tip ?Akinetic ? This report has been electronically sign ed by: _ Blade Preston MD ? 07/06/2017 08 :53:15 Images reviewed and interpretation verif ied [facility] Cardiac Ultrasound Laboratory Procedure Note Blade Preston MD - 07/06/2017Formatt ing of this note might be different from the original. Procedure: Transthoracic Echocardiogram Patient: NATALYA MCBRIDE(Age): [birth year]72y) Med Rec#: [id number] Sex: M Site Loc: [facility] Ht / Wt: 173(cm)/86(kg) Pt. Loc: [facility] BSA: 2 Study Date: 07/05/2017 Pt. Type: Inpatie nt Tape: Referring: Daphne Shahid ([id number]) Referring: MANDA ALCANTAR Reading: Blade Preston ([id number]) Any [employer] Deliverer: Dayami Paula BA, [facility] Diagnosis: *ICD-10-PCS Non-ST elevation (NSTEMI) [...] MV E-wave Vmax 0.8 m/sec MV deceleration [id number] msec MV A-wave Vmax 0.8 m/sec MV [...] Hypokinetic Mid-Posterolateral Hypokinetic Mid-Inferior Akinetic Mid-Inferoseptal Hypokinetic [place]-Septal Akinetic [place]-Anterior Hypokinetic [place]-Lateral Hypokinetic [place]-Inferior Akinetic [place]-Tip Akinetic This report has been electronically sign ed by: _ Blade Preston MD 07/06/2017 08:53:15 Images reviewed and interpretation verif ied [facility] Cardiac Ultrasound Laboratory Daphne Shahid MD ECHO ORDERABLES Performing Organization Address City/State/ZIP Code Phon e Number [facility] Differential, Automated (07/05/2017 4:55 PM EST) P athologist Signature Neutrophils % 77.0 % [facility] LABORATORY Neutr Abs (ANC) 5.26 1.70 - [facility] 6.10 [facility] x10(3)/[facility] LABORATORY Lymphocytes % 13.3 % [facility] LABORATORY Lymphocytes Abs 0.9 0.9 - 3.2 [facility] x10(3)/[facility] LABORATORY Monocytes % 8.2 % [facility] LABORATORY Monocyte Abs 0.6 0.3 - 0.9 [facility] x10(3)/[facility] LABORATORY Eosinophils % 0.7 % [facility] LABORATORY Eosinophils Abs 0.0 0.0 - 0.4 [facility] x10(3)/[facility] LABORATORY Basophils % 0.4 % [facility] LABORATORY Basophils Abs 0.0 0.0 - 0.1 [facility] x10(3)/[facility] LABORATORY Immature Gran % 0.40 % [...] Melisa Gran Abs 0.03 0.00 - 0.04 x10(3)/[facility] LABORATORY Specimen Anatomical Collection Method Collection Time Receive d Time (Source) Location / / Volume Laterality Blood specimen 07/05/2017 4:55 PM 017 5:24 (specimen) EST PM EST Resulting Agency Comment Spec In Lab Daphne Shahid MD HEMATOLOGY ORDERABLES Performing Organization Address City/State/[place] [address] (ABNORMAL) Hemogram (07/05/2017 4:55 PM EST) Analysis Performed At Patho logist Time Signature WBC 6.8 4.0 - 9.5 [facility] x10(3)/[facility] LABORATORY RBC 4.67 4.58 - [place] 5.54 [facility] x10(6)/[facility] LABORATORY Hemoglobin 14.0 13.[address] [facility] gm/dL [facility] Hematocrit 41.0 40.5 - [facility] 48.5 % [facility] MCV 87.8 82.9 - [facility] 93.1 [facility] LABORATORY MCH 30.0 27.5 - [place] 32.1 pg [facility] MCHC 34.1 32.0 - [facility] 35.7 gm/dL [facility] Platelets 197 145 - 357 [facility] x10(3)/[facility] LABORATORY RDWSD 46.4 (H) 36.0 - [place] 45.0 [facility] LABORATORY RDWCV 14.5 (H) 11.4 - [facility] SU 13.8 % [facility] MPV 9.7 7.6 - 12.9 [facility] LABORATORY nRBC % Auto 0.0 % [facility] LABORATORY nRBC Abs Auto 0.000 0.000 - [place] 0.000 [facility] x10(3)/[facility] LABORATORY Specimen Anatomical Collection Method Collection Time Receive d Time (Source) Location / / Volume Laterality Blood specimen 07/05/2017 4:55 PM 017 5:24 (specimen) EST PM EST Resulting Agency Comment Spec In Lab Daphne Shahid MD HEMATOLOGY ORDERABLES Performing Organization Address City/State/[place] [address] (ABNORMAL) Cardiac Enzymes (LEB/CGP) (07/05/2017 4:55 PM EST) P athologist Signature Troponin-T 1.69 (H) 0.00 - [place] 0.00 ng/mL [facility] Comment: The 99th percentile for Troponin T is le ss than 0.01 ng/mL, any detectable cTnT concentration using this assay should be considered elevated. According to the third universal definit ion of myocardial infarction the following criteria with a clinical prese ntation consistent with acute myocardial ischemia meets the diagnosis for a myocardial infarction ([place]). Detection of a rise and/or fall of [...] additional sample may be indicated. Reference: Third [place] Definition of Myocardial Infarction. Journal of the British College of Cardiology 2012;60:1581-98 CK, Total 191 0 - 200 unit/L [facility] LABORATORY Specimen Anatomical Collection Method Collection Time Receive d Time (Source) Location / / Volume Laterality Blood specimen 07/05/2017 4:55 PM 017 5:56 (specimen) EST PM EST Resulting Agency Comment Spec In Lab Daphne Shahid MD CHEMISTRY ORDERABLES Performing Organization Address City/[facility]/[place] [address] (ABNORMAL) pro-Brain Natriuretic Peptide (07/05/2017 4:55 PM EST) P athologist Signature ProBNP 1,598 (H) <=125 [facility] pg/mL [facility] Specimen Anatomical Collection Method Collection Time Receive d Time (Source) Location / / Volume Laterality Blood specimen 07/05/2017 4:55 PM 017 5:24 (specimen) EST PM EST Resulting Agency Comment Spec In Lab Daphne Shahid MD CHEMISTRY ORDERABLES Performing Organization Address City/State/[place] [address] [facility] [address] Magnesium (07/05/2017 4:55 PM EST) athologist Signature Magnesium 0.78 0.69 - 1.07 [facility] mmol/L [facility] Specimen Anatomical Collection Method Collection Time Receive d Time (Source) Location / / Volume Laterality Blood specimen 07/05/2017 4:55 PM 017 5:24 (specimen) EST PM EST Resulting Agency Comment Spec In Lab Daphne Shahid MD CHEMISTRY ORDERABLES Performing Organization Address City/State/ZIP Code Phon e Number [address] (ABNORMAL) Basic Metabolic Panel (non-fasting) (07/05/2017 4:55 PM EST) athologist Signature Glucose Lvl 230 (H) 65 - 199 [facility] mg/dL [facility] Comment: Diabetes: >=200 mg/dL plus symp toms BUN 19 10 - 20 mg/dL [facility] Creatinine 1.04 0.80 - 1.50 mg/dL [facility] LABORATORY Sodium 142 135 - [...] Anion Gap 14 5 - 15 mmol/L [facility] LABORATORY Calcium 8.5 8.5 - 10.5 mg/dL [facility] LABORATORY Estimated GFR >60 >=60 [facility] Comment: The reported eGFR should be multiplied b y 1.2 for patients. The MDRD is not an appropriate measure o f renal function for patients with body mass extremes or in patients with acute kidney failure. http://[employer].ShoeDazzle/DHnkdep http://[employer].com/DHMCnkf Specimen Anatomical Collection Method Collection Time Receive d Time (Source) Location / / Volume Laterality Blood specimen 07/05/2017 4:55 PM 017 5:24 (specimen) EST PM EST Resulting Agency Comment Spec In Lab Daphne Shahid MD CHEMISTRY ORDERABLES Performing Organization Address City/[facility]/ZIP Code Phon e Number [address] (ABNORMAL) APTT (07/05/2017 4:55 PM EST) P athologist Signature PTT 41 (H) 25 - 35 sec [facility] Comment: The recommended therapeutic range for fu ll dose, unfractionated heparin at [facility] is 80 ? 114 seconds. The use [...] Shahid MD HEMATOLOGY ORDERABLES Performing Organization Address City/[facility] [place] [address] (ABNORMAL) POCT Glucose (07/05/2017 4:53 PM EST) P athologist Signature POC Glucose 208 (H) 65 - 199 [facility] mg/dL [facility] Comment: Supplemental ranges: <140 mg/dL before meals <180 mg/dL all other times of the day Specimen Anatomical Collection Method Collection Time Receive d Time (Source) Location / / Volume Laterality Blood specimen 07/05/2017 4:53 PM 017 4:53 (specimen) EST PM EST Daphne Shahid MD POINT OF CARE TEST ORDERABLE S Performing Organization Address City/[facility]/ZIP Code [place] [address] EKG 12 Lead (07/05/2017 4:32 PM EST) Component Value Ref Range Test Analysis Performed Pathologis t Method Time At Signature Ventricular rate 97 BPM MUSE SYSTEM Atrial Rate 97 BPM MUSE SYSTEM P-R Interval 148 ms MUSE SYSTEM QRS Duration 96 ms MUSE SYSTEM Q-T Interval 364 ms MUSE SYSTEM QTC Calculated 462 ms MUSE SYSTEM (Bezet) Calculated P [place] 48 degrees MUSE SYSTEM Calculated R [place] -33 degrees MUSE SYSTEM Calculated T [place] 98 degrees MUSE SYSTEM INTERPRETATION Normal sinus [...] Coronary atherosclerosis of unspecified type of vessel, [place] or graft Cardiomyopathy, ischemic Other specified forms [...] post-op day 1 in the AM Give AR if unable to take PO, Routine Given [...] in dextrose 5% 250 mL EST infusion (SHOE STOCK ASSOCIATE) CONTINUOUS PRN, Starting on Wed07/05/17 at 1837, [...] post-op day 1 in the AM Give AR if unable to take PO, Routine atorvastatin [...] mg, Intravenous, EVERY 8 [address] PRN, [facility] Wed07/07/17 at 1839, Until Wed07/14/17 at 1639, [...] post-op day 1 in the AM Give AR if unable to take PO
Routine Group [...]
Routine documented in this encounter Care Teams Fisher Pound Net Or Trap Relationship Specialty Start Date End Date Lovely Vicente MD PCP - General 04/16/[address] [place] [address] documented as of this encounter
--- OUTSIDE RECORDS SUMMARY | 2022-02-16 08:22 | XMS_ITS | Encounter Summary ---
:1945 Author Organization [facility] [place] [address] Care Team Providers Name Role Phone MiyaAngela STACIE Primary Care Provider Encounter Details Date Type Department Care Team Description 04/26/2014 Office Visit Endocrinology at [facility] Albertina Palmer, Papillary thyroid [facility] MD [place] [address] CENTER [phone] ENDOCRINOLOGY DEPT [place] [address] Social History Tobacco Use Types Packs/Day Years [...] on [place]. Rosalind Palmer Endocrine Staff Physician [facility] Rosalind Palmer MD - 04/26/2014 [...] one yr Rosalind Palmer Endocrine Staff Physician [facility] documented in this encounter Plan of Treatment Upcoming Encounters Date Type Specialty Care Team Description 02/19/2022 Laboratory Appointment Lab 02/19/2022 Office Visit Cardiology Liz Poole PA [facility] Cardiology Dept [place], [place] [address] (Wo rk) 03/26/2022 Office Visit Cardiology Vitaliy Nobles MD [facility] CARDIOLOGY [place], [place] [address] (Wo rk) documented as of [...] athologist Signature Thyroglobulin <0.4 <=54.9 [facility] ng/mL [facility] Comment: Interpret with caution. Tg levels may [...] BR et al. J Clin Endo Metab 1999;84:3731-9655). Assay performed using the DPC Immulite T [...] Organization Address City/State/ZIP [place] [address] CERNER MILLENNIUM (ABNORMAL) TSH [...] Organization Address City/State/ZIP [place] [address] RAKESH WALKER documented in this encounter Visit Diagnoses Diagnosis Papillary thyroid carcinoma Malignant neoplasm of thyroid gland documented in this encounter Care Teams Enrollment Advisor Relationship Specialty Start Date End Date Angela Holliday APRN PCP - General 01/25/13 04/15/[address] [place] [address] documented as of this encounter
--- OUTSIDE RECORDS SUMMARY | 2022-02-16 08:22 | XMS_ITS | Encounter Summary ---
:1945 Author Organization [facility] [place] [address] Care Team Providers Name Role Phone Lovely Vicente MD Primary Care Provider Reason for Visit Reason Comments Thyroid Cancer Encounter Details Date Type Department Care Team Description 06/05/2015 Office Visit Endocrinology at [facility] Albertina Prescott, History of papillary [facility] MD Luz adenocarcinoma of [facility] thyroid (Primary Dx) [place] [address] CENTER [phone] [place] [address] Social History Tobacco Use Types Packs/Day Years [...] the thyroid gland were obtained using a Destineer ultrasound machine. All measurements are given as AP x Transverse x Longitudinal Right Lobe: Absent Left Lobe: Absent Isthmus: Absent Central/Lateral neck: no morphologically abnormal lymph nodes. Impression: No sonographic evidence of recurrence. LUZ PRESCOTT MD Fabric Finishercleaner and presser Section of Endocrinology [facility] Luz Prescott MD - 06/05/2015 8:21 AM [...] Diagnostic, Drum (ACCU-CHEK COMPACT TEST) Strip by [facility].(Non-Drug; Combo Route) route 2 times daily. Yes [...] --f/u in 1 year LUZ PRESCOTT MD Fabric Finishercleaner and presser Section of Endocrinology [facility] documented in this encounter Miscellaneous Notes Addendum [...] PA [facility] Cardiology Dept [place], [place] [address] (Wo rk) 03/26/2022 Office Visit Cardiology Vitaliy Nobles MD [facility] CARDIOLOGY [place], [place] [address] (Wo rk) documented as of [...] athologist Signature Thyroglobulin 0.6 <=54.9 C[place]ER ng/mL [facility] Comment: Interpret with caution. Tg levels may [...] BR et al. J Clin Endo Metab 1999;84:5836-9458). Assay performed using the DPC Immulite T [...] Organization Address City/State/[place] [address] CERNER MILLENNIUM (ABNORMAL) TSH (06/05/2015 9:04 AM EST) P athologist Signature TSH 5.88 (H) 0.27 - 4.20 CERNER mcIU/mL [facility]UM Specimen Anatomical Collection Method Collection Time Receive d Time (Source) Location / / Volume Laterality Blood specimen 06/05/2015 9:04 AM 015 9:15 (specimen) EST AM EST Resulting Agency Comment Spec In Lab Luz Prescott MD CHEMISTRY ORDERABLES Performing Organization Address City/[facility]/[place] [address] CERNER MILLENNIUM documented in this encounter Visit Diagnoses Diagnosis 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
--- OUTSIDE RECORDS SUMMARY | 2022-02-16 08:22 | XMS_ITS | Encounter Summary ---
:1945 Author Organization [facility] [place] [address] Care Team Providers Name Role Phone MiyaLokeshAngela STACIE Primary Care Provider Encounter Details Date Type Department Care Team Description 01/16/2014 Hospital Encounter [place] [facility] [place]heim Swann, [facility] [place] [address] [facility] [phone] [facility] [place], [place] [address] Social History Tobacco Use Types [...] you need to be checked. Wednesday-[facility] Clinic [phone] 8a-5p Same Day Endo [phone] 7a-8p Otherwise contact [phone] and ask to speak to the university lecturer agricultural education professor Follow up care is a [place] part [...] Swann MD - 01/16/2014 9:49 AM EDT [facility] Operative Note Patient Name: Gregory Fatima : [id number] MR#: [id number] Case Date: 01/16/2014 Surgeon: Surgeon(s) and Role: * Nohemi Swann MD - Primary Preoperative diagnosis: 5 yr surv. Full procedure note is documented under the Procedure section of eDH. documented in this encounter Plan of Treatment Upcoming Encounters Date Type Specialty Care Team Description 02/19/2022 Laboratory Appointment Lab 02/19/2022 Office Visit Cardiology Liz Poole PA [facility] er Cardiology Dept [place], [place] [address] (Wo rk) 03/26/2022 Office Visit Cardiology Vitaliy Nobles MD [facility] ER CARDIOLOGY [place], [place] [address] (Wo rk) documented as of [...] Surgical Pathology Report (01/16/2014 9:53 AM EDT) [facility] Method Time Signature Surgical CERNER Pathology ? [facility] Report ? Provider: ?? NOHEMI SWANN ?Pt. Name: ?? SURINDER ALEGRE, GREGORY Mccollum ? Acc #: ?[id number] ?Pt. MRN: ?[id number] ? Col Date: ?? 4 ? /Sex: [...] Address City/State/ZIP Code Phon e Number [address] [facility] Specimen to Pathology (surgical or derm) (01/16/2014 9:53 AM EDT) Specimen Anatomical Collection Method Collection Time Receive d Time (Source) Location / / Volume Laterality AP Specimen 01/16/2014 9:53 AM 201 4 9:53 EDT AM EDT Narrative CERNER MILLENNIUM - 01/16/2014 9:53 AM E DT Specimen requisition ordered. ??Separate Pathology report to follow Nohemi Swann MD PATHOLOGY/CYTOLOGY ORDERABLE S Performing Organization Address City/State/[facility] Code Phon e Number [address] CERNER MILLENNIUM Specimen to [...] Organization Address City/State/[place] [address] CERKERI MILLENNIUM COLONOSCOPY (01/16/2014 7:25 AM EDT) [facility] Method Time Signature COLONOSCOPY [facility] Endoscopy Patient Name: Gregory Fatima ? Procedure Date: 01/16/2014 7:25 AM ? N: [id number] ? Date of : 1945 ? Age: 68 ? Order #: [id number] ? Procedure: ? Colonoscopy Indications: ? High [...] Routine documented in this encounter Care Teams Tower Supervisor Relationship Specialty Start Date End Date Angela Sotelo APRN PCP - General 01/25/13 04/15/15 [address] [place] [address] documented as of this encounter
--- OUTSIDE RECORDS SUMMARY | 2022-02-16 08:22 | XMS_ITS | Encounter Summary ---
:1945 Author Organization [facility] [place] [address] Care Team Providers Name Role Phone Angela Holliday APRN Primary Care Provider Reason for Visit Reason Comments Skin Check Encounter Details Date Type Department Care Team Description 07/31/2013 Follow-Up Dermatology at [facility] eoplasm of unspecified nature of bone, soft tissue, and skin (Primary Dx); Abdelrahman HOOPER MD Seborrheic psoriasis- scalp and ingtergl uteal area; [address] [facility] Atypical nev[place] [address] [facility] [place], [place] [address] (Wo rk) Social History Tobacco [...] Poole PA [facility] Cardiology [place], [place] [address] (Wo rk) 03/26/2022 Office Visit Cardiology Vitaliy Nobles MD [facility] CARDIOLOGY [place], [place] [address] (Wo rk) Scheduled Orders Name [...] Ref Test Analysis Performed At [facility] gist Range Method Time Signature Surgical CERNER Pathology ? [facility] Report ? Provider: ?? DEION III, RIGOBERTO Pt. Name: ?? GREGORY HOANG ?A ? Acc #: ?[id number] ? Pt. ? Col Date: ?? 07/31/2013 [...] 0.9 x 0.8 x 0.2 cm. ? [facility] ? Provider: ?? JUSTINL III, RIGOBERTO Pt. Name: ?? GREGORY HOANG ?A ? Acc #: ?[id number] ? Pt. ? Col Date: ?? 07/31/2013 [...] MD PATHOLOGY/CYTOLOGY ORDERABLE S Performing Organization Address City/[facility]/[place] [address] CERNER MILLENNIUM Specimen to [...] MD PATHOLOGY/CYTOLOGY ORDERABLE S Performing Organization Address City/[facility] [place] [address] CERNER MILLENNIUM documented in this encounter Visit Diagnoses Diagnosis Neoplasm of unspecified nature of bone, soft tissue, and skin - Primary Seborrheic psoriasis- scalp and ingtergl uteal area Other psoriasis Atypical nevus of abdominal wall Benign neoplasm of skin of trunk, except scrotum documented in this encounter Care Teams Rn Social Services Relationship Specialty Start Date End Date Angela Holliday APRN PCP - General 01/25/13 04/15/[address] [place] [address] documented as of this encounter
--- OUTSIDE RECORDS SUMMARY | 2022-02-16 08:22 | XMS_ITS | Encounter Summary ---
:1945 Author Organization [facility] [place] [address] Care Team Providers Name Role Phone Lovely Vicente MD Primary Care Provider Encounter Details Date Type Department Care Team Description 11/28/2016 Telephone Dermatology at [facility] Rigoberto Garcia III, [address] [place] [address] [facility] [phone] [facility] SIM[facility]N-DERMAT [place], [place] [address] (Wo rk) Social History Tobacco [...] provider. Rigoberto Garcia MD Section of Dermatology [facility] documented in this encounter Plan of Treatment Upcoming Encounters Date Type Specialty Care Team Description 02/19/2022 Laboratory Appointment Lab 02/19/2022 Office Visit Cardiology Liz Poole PA [facility] Cardiology [place], [place] [address] (Wo rk) 03/26/2022 Office Visit Cardiology Vitaliy Nobles MD [facility] CARDIOLOGY [place], [place] [address] (Wo rk) documented as of this encounter Visit Diagnoses Not on filedocumented in this encounter Care Teams Software Packager Relationship Specialty Start Date End Date Lovely Vicente MD PCP - General 04/16/[address] [place] [address] documented as of this encounter
--- OUTSIDE RECORDS SUMMARY | 2022-02-16 08:22 | XMS_ITS | Encounter Summary ---
:1945 Author Organization [facility] [address] Care Team Providers Name Role Phone Lovely Vicente MD Primary Care Provider Reason for Visit Reason Onset Date Comments Referral 10/30/2015 Urgent referral for mac on [address] [place] Encounter Details Date Type Department Care Team Description 10/30/2015 Telephone Ophthalmology at [facility] C Jayson Ruiz Referral (Urgent [facility] MD Grabiel referral for mac on [facility] [address] SIM[address]N [place]) [place] [address] OPHTHALMOLOGY DEPT. [phone] [place], [place] [address] (Wo rk) Social History Tobacco [...] 02/19/2022 Office Visit Cardiology Liz Poole PA [facility] er Cardiology Dept [place], [place] [address] (Wo rk) 03/26/2022 Office Visit Cardiology Vitaliy Nobles MD [facility] ER CARDIOLOGY [place], [place] [address] (Wo rk) documented as of this encounter Visit Diagnoses Not on filedocumented in this encounter Care Teams Seismograph Computer Relationship Specialty Start Date End Date Lovely Vicente MD PCP - General 04/16/15 [facility] [address] [place] [address] documented as of this encounter
--- OUTSIDE RECORDS SUMMARY | 2022-02-16 08:22 | XMS_ITS | Encounter Summary ---
:1945 Author Organization [facility] [place] [address] Care Team Providers Name Role Phone MiyaAngela STACIE Primary Care Provider Encounter Details Date Type Department Care Team Description 11/27/2013 Orders Only [place] [facility] Blade Smith, Urinary retention [facility] (Primary Dx) [place] [address] UROLOGY DEPT [place], [place] [address] Social History Tobacco Use Types [...] [facility] er Cardiology Dept [place], [place] [address] (Wo rk) 03/26/2022 Office Visit Cardiology Vitaliy Nobles MD [facility] ER CARDIOLOGY [place], [place] [address] (Wo rk) documented as of [...] City/State/ZIP Code Phon e Number [place] [phone] [facility] documented in this encounter Visit Diagnoses Diagnosis Urinary retention - Primary Retention of urine, unspecified documented in this encounter Care Teams Rn Navigator Relationship Specialty Start Date End Date Angela Holliday APRN PCP - General 01/25/13 04/15/[address] [place] [address] documented as of this encounter
--- OUTSIDE RECORDS SUMMARY | 2022-02-16 08:22 | XMS_ITS | Encounter Summary ---
:1945 Author Organization [facility] [place] [address] Care Team Providers Name Role Phone Lovely Vicente MD Primary Care Provider Reason for Visit Reason Comments Nevus excision dysplastic nevus mi d upper abdomen Encounter Details Date Type Department Care Team Description 12/03/2016 Procedure visit Dermatology at Halima Dubois Dysplastic nevus of Road MD Adrián trunk [address] [facility] [address] [facility] [phone] RD-DERMATOLGY [place] [address] Social History Tobacco Use Types Packs/Day Years [...] Halima Cordero MD during the day at [phone] Nurse: Mira [phone] Amy After 5 PM and on weekends, please call the hospital number , and ask for the Policy Services Representative director of slot operations. documented in this encounter Progress Notes Halima Cordero MD - 12/10/2016 5:41 PM EDT Gwendolyn, Excision shows scar, there is no residual of the severely dysplastic nevus. Please notify patient and check on wound healing. Thank you, DTB Halima Cordero MD - 12/03/2016 3:00 PM EDT Images from the original note were not included. Dermatology Procedure note: Attending: Halima Cordero MD Drying Machine Receiver: Mira James LPN Referring MD: Rigoberto Garcia [...] to call the clinic or the on-call fountain attendant over the weekend. ??? Name of Procedure? [...] Office Visit Cardiology Liz Poole PA [facility] er Cardiology Dept [place], [place] [address] (Wo rk) 03/26/2022 Office Visit Cardiology Vitaliy Nobles MD [facility] ER CARDIOLOGY [place], [place] [address] (Wo rk) documented as of this encounter [...] Component Value Ref Test Analysis Performed At [facility] Range Method Time Signature Surgical [id number] ?Location: [facility] Pathology TAFT Report The signing pathologist has (i) examined [...] Clinical Diagnosis: Dysplastic nevus, see previous pathology [id number] SPECIMEN PROCESSING A - Labeled/Fixative: Mid-upper abdomen, [...] MD PATHOLOGY/CYTOLOGY ORDERABLE S Performing Organization Address City/[facility]/[place] [address] Specimen to Pathology (NON-OR) [...] MD PATHOLOGY/CYTOLOGY ORDERABLE S Performing Organization Address City/[facility]/[place] [address] documented in this encounter Visit Diagnoses Diagnosis Dysplastic nevus of trunk Benign neoplasm of skin of trunk, except scrotum documented in this encounter Care Teams Bilingual Account Manager Relationship Specialty Start Date End Date Lovely Vicente MD PCP - General 04/16/[address] [place] [address] documented as of this encounter
--- OUTSIDE RECORDS SUMMARY | 2022-02-16 08:22 | XMS_ITS | Encounter Summary ---
:1945 Author Organization [facility] [place] [address] Care Team Providers Name Role Phone Lovely Vicente MD Primary Care Provider Reason for Visit Reason Comments Skin Check Encounter Details Date Type Department Care Team Description 04/16/2015 Follow-Up Dermatology at [facility] x of melanoma of skin; Abdelrahman HOOPER MD Multiple benign nevi [address] [place] [address] [facility] [place], [place] [address] (Wo rk) Social History Tobacco [...] Diagnostic, Drum (ACCU-CHEK COMPACT TEST) Strip by [facility].(Non- Drug; Combo Route) [...] encounter. Rigoberto Garcia MD Section of Dermatology [facility] documented in this encounter Plan of Treatment Upcoming Encounters Date Type Specialty Care Team Description 02/19/2022 Laboratory Appointment Lab 02/19/2022 Office Visit Cardiology [facility] [place] [place] [address] (Wo rk) 03/26/2022 Office Visit Cardiology Vitaliy Nobles MD [facility] ER CARDIOLOGY [place], [place] [address] (Wo rk) documented as of this encounter Visit Diagnoses Diagnosis Hx of melanoma of skin Personal history of malignant melanoma o f skin Multiple benign nevi Benign neoplasm of skin, site unspecifie d documented in this encounter Care Teams Chemical Research Technician Relationship Specialty Start Date End Date Lovely Vicente MD PCP - General 04/16/[address] [place] [address] documented as of this encounter
--- OUTSIDE RECORDS SUMMARY | 2022-02-16 08:22 | XMS_ITS | Encounter Summary ---
:1945 Author Organization [facility] [place] [address] Care Team Providers Name Role Phone Lovely Vicente MD Primary Care Provider Reason for Visit Reason Comments Skin Check Encounter Details Date Type Department Care Team Description 06/05/2016 Office Visit Dermatology at [facility] istory of melanoma; Abdelrahman HOOPER MD Seborrheic keratosis; [address] [facility] [place] (actinic keratosis); [place] [address] Multiple nevi; [phone] [facility] [address]-DERMATOLGY [place], [place] [address] Social History Tobacco Use Types [...] Rigoberto Garcia MD Section of Dermatology [facility] documented in this encounter Plan of Treatment Upcoming Encounters Date Type Specialty Care Team Description 02/19/2022 Laboratory Appointment Lab 02/19/2022 Office Visit Cardiology Liz Poole PA [facility] er Cardiology Dept [place], [place] [address] (Wo rk) 03/26/2022 Office Visit Cardiology Vitaliy Nobles MD [facility] CARDIOLOGY [place], [place] [address] (Wo rk) documented as of this encounter Visit Diagnoses Diagnosis History of melanoma Personal history of malignant melanoma o f skin Seborrheic keratosis Other seborrheic keratosis [place] (actinic keratosis) Actinic keratosis Multiple nevi Benign neoplasm of skin, site unspecifie d Scar Scar condition and fibrosis of skin documented in this encounter Care Teams Senior Engineering Team Leader Relationship Specialty Start Date End Date Lovely Vicente MD PCP - General 04/16/[address] [place] [address] [address] [place] [address] documented as of this encounter
--- OUTSIDE RECORDS SUMMARY | 2022-02-16 08:22 | XMS_ITS | Encounter Summary ---
:1945 Author Organization [facility] [place] [address] Care Team Providers Name Role Phone Angela Holliday APRN Primary Care Provider Reason for Visit Reason Comments Benign Prostatic Hypertrophy Encounter Details Date Type Department Care Team Description 11/28/2013 Follow[facility]Up [facility] [place] [facility] Blade Smith, Urinary retention (Primary D x); [facility] BPH (benign prostatic hyperplasia) [place] [address] UROLOGY DEPT [place], [place] [address] (Wo rk) Social History [...] PA [facility] Cardiology Dept [place], [place] [address] (Wo rk) 03/26/2022 Office Visit Cardiology Vitaliy Nobles MD [facility] CARDIOLOGY [place], [place] [address] (Wo rk) documented as [...] Organization Address City/State/ZIP Code Phon e Number [place] [phone]OS[address]ITAL [address] [facility] documented in this encounter Visit Diagnoses Diagnosis Urinary retention - Primary Retention of urine, unspecified BPH (benign prostatic hyperplasia) Unspecified hyperplasia of prostate with out urinary obstruction and other lower urinary tract symptoms (LUTS) documented in this encounter Care Teams Integration Aide Relationship Specialty Start Date End Date Angela Holliday APRN PCP - General 01/25/13 04/15/[address] [place] [address] documented as of this encounter
--- OUTSIDE RECORDS SUMMARY | 2022-02-16 08:22 | XMS_ITS | Encounter Summary ---
:1945 Author Organization [facility] [place] [address] Care Team Providers Name Role Phone Angela Holliday APRN Primary Care Provider Encounter Details Date Type Department Care Team Description 04/30/2014 Orders Only Endocrinology at [facility] Albertina Palmer, Thyroid cancer [facility] Jorge Boyer MD (Primary Dx) [place] [address] [facility] [phone] CENTER ENDOCRINOLOGY DEPT [place], [place] [address] Social History Tobacco Use Types [...] 02/19/2022 Office Visit Cardiology Liz Poole PA [facility] Cardiology Dept [place], [place] [address] (Wo rk) 03/26/2022 Office Visit Cardiology Vitaliy Nobles MD [facility] ER CARDIOLOGY [place], [place] [address] (Wo rk) documented as of this encounter Visit Diagnoses Diagnosis Thyroid cancer - Primary Malignant neoplasm of thyroid gland documented in this encounter Care Teams Order Entry Representative Relationship Specialty Start Date End Date Angela Holliday APRN PCP - General 01/25/13 04/15/[address] [place] [address] documented as of this encounter
--- OUTSIDE RECORDS SUMMARY | 2022-02-16 08:22 | XMS_ITS | Encounter Summary ---
:1945 Author Organization [facility] [place] [address] Care Team Providers Name Role Phone Lovely Vicente MD Primary Care Provider Encounter Details Date Type Department Care Team Description 07/05/2017 Telephone Cardiology Kim Galindo MD [facility] [place] [address] CARDIOLOGY DEPT [phone] [place], [place] [address] (Wo rk) Social History Tobacco [...] 1:54pm Referring Provider: Ivania CROWELL) Patient Location: [facility] Presenting Symptoms per OSH: 72 year [...] infarct and elevated troponin, transport patient to [facility] for cath this afternoon and arrhythmia monitoring. Kim Galindo MD [facility] [place] documented in this encounter Plan of Treatment Upcoming Encounters Date Type Specialty Care Team Description 02/19/2022 Laboratory Appointment Lab 02/19/2022 Office Visit Cardiology Liz Poole PA [facility] er Cardiology Dept [place], [place] [address] (Wo rk) 03/26/2022 Office Visit Cardiology Vitaliy Nobles MD [facility] ER CARDIOLOGY [place], [place] [address] (Wo rk) documented as of this encounter Visit Diagnoses Not on filedocumented in this encounter Care Teams Claims Administrator Relationship Specialty Start Date End Date Lovely Vicente MD PCP - General 04/16/15 [facility] [address] [place] [address] documented as of this encounter
--- OUTSIDE RECORDS SUMMARY | 2022-02-16 08:22 | XMS_ITS | Encounter Summary ---
:1945 Author Organization [facility] [place] [address] Care Team Providers Name Role Phone Lovely Vicente MD Primary Care Provider Reason for Visit Reason Onset Date Comments Medication Refill 12/24/2016 Encounter Details Date Type Department Care Team Description 12/24/2016 Refill Endocrinology at [facility] Luz Stallings MD [facility] [place] [address] ENDOCRINOLOGY DEPT [phone] [place], [place] [address] (Wo rk) Social History Tobacco [...] PA [facility] er Cardiology Dept [place], [place] [address] (Wo rk) 03/26/2022 Office Visit Cardiology Vitaliy Nobles MD [facility] ER CARDIOLOGY [place], [place] [address] (Wo rk) documented as of this encounter Visit Diagnoses Not on filedocumented in this encounter Care Teams Rotogravure Press Operator Relationship Specialty Start Date End Date Lovely Vicente MD PCP - General 04/16/[address] [place] [address] documented as of this encounter
--- OUTSIDE RECORDS SUMMARY | 2022-02-16 08:22 | XMS_ITS | Encounter Summary ---
:1945 Author Organization [facility] [place] [address] Care Team Providers Name Role Phone Angela Sotelo APRN Primary Care Provider Encounter Details Date Type Department Care Team Description 01/16/2014 Surgery Gastroenterology at [facility] Nohemi Swann, COLONOSCOPY, [facility] Jorge mcnamara MD [place], [place] [address] [facility] ([facility] [phone] DR Cintron) GASTROENTEROLOGY DEPT. [place], [place] [address] Social History Tobacco Use Types [...] you need to be checked. [facility] [phone] 8a-5p Same Day Endo [phone] 7a-8p Otherwise contact [phone] and ask to speak to the pharmaceutical sales representative contracting executive Follow up care is a shelton part [...] Swann MD - 01/16/2014 9:49 AM EDT [facility] Operative Note Patient Name: Gregory Fatima : [id number] MR#: [id number] Case Date: 01/16/2014 Surgeon: Surgeon(s) and Role: * Nohemi Swann MD - Primary Preoperative diagnosis: 5 yr surv. Full procedure note is documented under the Procedure section of eDH. documented in this encounter Plan of Treatment Upcoming Encounters Date Type Specialty Care Team Description 02/19/2022 Laboratory Appointment Lab 02/19/2022 Office Visit Cardiology Liz Poole PA [facility] er Cardiology Dept [place], [place] [address] (Wo lissa) 03/26/2022 Office Visit Cardiology Vitaliy Nobles MD [facility] ER DR TADEO [place], [place] [address] (Mikayla alcaraz) documented as of [...] Surgical Pathology Report (01/16/2014 9:53 AM EDT) [facility] Method Time Signature Surgical CERNER Pathology ? [facility] Report ? Provider: ?? NOHEMI SWANN ?Pt. Name: ?? SURINDER ALEGRE, GREGORY Mccollum ? Acc #: ?[id number] ?Pt. MRN: ?[id number] ? Col Date: ?? 4 ? /Sex: [...] / Volume Laterality 01/16/2014 9:53 AM EDT Noheim Swann MD PATHOLOGY/CYTOLOGY ORDERABLE S Performing Organization Address City/State/[place] [address] CERNER MILLENNIUM Specimen to [...] MD PATHOLOGY/CYTOLOGY ORDERABLE S Performing Organization Address City/[facility]/[place] [address] CERNER MILLENNIUM Specimen to [...] MD PATHOLOGY/CYTOLOGY ORDERABLE S Performing Organization Address [facility]/State/[place] [address] CERKERI MILLENNIUM COLONOSCOPY (01/16/2014 7:25 AM EDT) [facility] Method Time Signature COLONOSCOPY [facility] PROVATION Endoscopy Patient Name: Gregory Fatima ? Procedure Date: 01/16/2014 7:25 AM ? N: [id number] ? Date of : 1945 ? Age: 68 ? Order #: [id number] ? Procedure: ? Colonoscopy Indications: ? High [...] Laterality 01/16/2014 7:25 AM EDT Angela Sotelo GEOSCIENCES ASSOCIATE PROFESSOR GENERAL SURGICAL ORDERABLES Performing Organization Address City/State/ZIP [...] documented in this encounter Care Teams Research Chef Relationship Specialty Start Date End Date Angela Sotelo APRN PCP - General 01/25/13 04/15/[address] [place] [address] documented as of this encounter
--- OUTSIDE RECORDS SUMMARY | 2022-02-16 08:22 | XMS_ITS | Encounter Summary ---
:1945 Author Organization [facility] [place] [address] Care Team Providers Name Role Phone Lovely Vicente MD Primary Care Provider Reason for Visit Reason Comments Medication Refill Encounter Details Date Type Department Care Team Description 05/10/2015 Refill Endocrinology at [facility] Rosalind Covarrubias, [facility] [place] [address] [facility] [phone] ENDOCRINOLOGY [place], [place] [address] (Mikayla alcaraz) Social History Tobacco [...] [facility] er Cardiology Dept [place], [place] [address] (Wo rk) 03/26/2022 Office Visit Cardiology Vitaliy Nobles MD [facility] ER CARDIOLOGY [place], [place] [address] (Wo rk) documented as of this encounter Visit Diagnoses Not on filedocumented in this encounter Care Teams Fly Winder Relationship Specialty Start Date End Date Lovely Vicente MD PCP - General 04/16/[address] [place] [address] [address] [facility] [place] [address] documented as of this encounter
--- OUTSIDE RECORDS SUMMARY | 2022-02-16 08:22 | XMS_ITS | Encounter Summary ---
:1945 Author Organization [facility] [place] [address] Care Team Providers Name Role Phone Lovely Vicente MD Primary Care Provider Encounter Details Date Type Department Care Team Description 07/10/2016 Telephone Dermatology at [facility] Rigoberto White III, [address] [place] [address] [facility] [phone] [facility]DERMAT [place], [place] [address] (Wo rk) Social History Tobacco [...] Poole PA [facility] er [place]iology [place], [place] [address] (Wo rk) 03/26/2022 Office Visit Cardiology Vitaliy Nobles MD [facility] ER CARDIOLOGY [place], [place] [address] (Wo rk) documented as of this encounter Visit Diagnoses Not on filedocumented in this encounter Care Teams Blow Mold Machine Operator Relationship Specialty Start Date End Date Lovely Vicente MD PCP - General 04/16/[address] [place] [address] documented as of this encounter
--- OUTSIDE RECORDS SUMMARY | 2022-02-16 08:22 | XMS_ITS | Encounter Summary ---
:1945 Author Organization [facility] [place] [address] Care Team Providers Name Role Phone Lovely Vicente MD Primary Care Provider Encounter Details Date Type Department Care Team Description 09/03/2016 Laboratory Appointment Lab at [facility] Hx of papillary [facility] [place] [id number] Social History Tobacco Use Types Packs/Day Years [...] [facility] er Cardiology Dept [place], [place] [address] (Wo rk) 03/26/2022 Office Visit Cardiology Vitaliy Nobles MD [facility] ER CARDIOLOGY [place], [place] [address] (Wo rk) documented as of [...] EST) P athologist Signature Thyroglobulin <0.4 <=54.9 [facility] ng/mL [facility] Comment: Interpret with caution. Tg [...] BR et al. J Clin Endo Metab 1999;84:2614-0982). Assay performed using the DPC Immulite T g immunometric assay. (lowest detection limit is <0.4 ng/ml). Thyroglob Ab <20.0 0.0 - 40.0 IU/mL [facility] Comment: Assay performed is the [...] Organization Address City/State/[place] [address] TSH (09/03/2016 11:07 AM EST) P athologist Signature TSH 3.01 0.27 - 4.20 KATALINA RYAN mcIU/mL [facility] Specimen Anatomical Collection Method Collection Time Receive d Time (Source) Location / / Volume Laterality Blood specimen 09/03/2016 11:07 7 (specimen) AM EST 11:22 AM EST Resulting Agency Comment Spec In Lab Luz Prescott MD CHEMISTRY ORDERABLES Performing Organization Address City/State/[place] [address] documented in this encounter Visit Diagnoses Diagnosis Hx of papillary thyroid carcinoma Personal history of malignant neoplasm o f thyroid documented in this encounter Care Teams Cleaner Relationship Specialty Start Date End Date Lovely Vicente MD PCP - General 04/16/[address] [place] [address] documented as of this encounter
--- OUTSIDE RECORDS SUMMARY | 2022-02-16 08:22 | XMS_ITS | Encounter Summary ---
:1945 Author Organization [facility] [place] [address] Care Team Providers Name Role Phone Angela Holliday APRN Primary Care Provider Reason for Visit Reason Comments Other Encounter Details Date Type Department Care Team Description 08/01/2013 Telephone Dermatology at [facility] Rigoberto Garcia III, [address] [place] [address] [facility] [phone] TEJA MARIE-DERMAT [place], [place] [address] (Wo rk) Social [...] them. Component Value Surgical Pathology Final Report [facility] Provider: RIGOBERTO GARCIA III Pt. Name: DON HOANG Acc #: [id number] Pt. 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 CR-0 08/01/13 BJM 08/01/13 Verified by: Ian STRANGE, PhD, [facility] Dermatopathologist (Electronic Signature) The attending pathologist [...] 02/19/2022 Office Visit Cardiology Liz Poole PA [facility] er Cardiology [place], [place] [address] (Wo rk) 03/26/2022 Office Visit Cardiology Vitaliy Nobles MD [facility] ER CARDIOLOGY [place], [place] [address] (Wo rk) documented as of this encounter Visit Diagnoses Not on filedocumented in this encounter Care Teams Baggage Screener Relationship Specialty Start Date End Date Angela Holliday APRN PCP - General 01/25/13 04/15/15 [address] [place] [address] documented as of this encounter
--- OUTSIDE RECORDS SUMMARY | 2022-02-16 08:23 | XMS_ITS | Encounter Summary ---
:1945 Author Organization [facility] [place] [address] Care Team Providers Name Role Phone Angela Holliday APRN Primary Care Provider Encounter Details Date Type Department Care Team Description 03/28/2013 Surgery Main Operating Room Mesha Mcknight, THYROIDECTOMY, TOTAL [facility]WRV[facility] 15.04[facility] DR Siddiqui [place] [address] [place] [address] [phone] (Wo rk) Social History Tobacco Use Types [...] please call the General Surgery nurse at [phone], since this may mean that you need morecalcium. Follow-up Appointment: Will be scheduled with Dr. Mcknight in 6 weeks Date and time as well as any required labs will be mailed to you Please call [phone] to confirm date and time of your [...] by calcium supplementation. Phone number for questions: [phone] before 5 PM weekdays [phone] after 5 PM and on weekends/holidays Please follow up with Urology as per their recommendations for Bob removal AttachmentsThe following attachments cannot be sent through Care Everywhere. THYROIDECTOMY: WHAT TO EXPECT AT HOME (THAI)URINARY CATHETER CARE: AFTER YOUR VISIT (THAI)documented in this encounter Medications at Time of [...] is a 68 y.o. male presents to [facility] today for total thyroidectomy. [...] Willams MD - 03/28/2013 3:43 PM EDT [facility] Operative Note Patient Name: Gregory Fatima : [id number] MR#: [id number] Case Date: 03/28/2013 Surgeon: Surgeon(s) and Role: [...] patient was extubated and taken to the [facility] in stable condition. At [...] Operative Note Patient Name: Gregory Fatima : [id number] MR#: [id number] Case Date: 03/28/2013 Surgeon: Surgeon(s) and Role: [...] 02/19/2022 Office Visit Cardiology Liz Poole PA [facility] Cardiology Dept [place], [place] [address] (Wo rk) 03/26/2022 Office Visit Cardiology Vitaliy Nobles MD [facility] CARDIOLOGY [place], [place] [address] (Wo rk) documented as of [...] Organization Address City/State/ZIP Code Phon e Number [address] CERNER MILLENNIUM (ABNORMAL) POCT [...] Organization Address City/State/[place] [address] CERNER MILLENNIUM (ABNORMAL) POCT [...] Organization Address City/State/[place] [address] CERNER MILLENNIUM (ABNORMAL) POCT [...] City/[facility]/ZIP Code Phon e Number [address] CERNER MILLENNIUM (ABNORMAL) POCT [...] City/[facility]/ZIP Code Phon e Number [address] CERNER MILLENNIUM (ABNORMAL) POCT [...] Organization Address City/State/[place] [address] CERNER MILLENNIUM (ABNORMAL) POCT [...] City/[facility]/ZIP Code Phon e Number [address] CERNER MILLENNIUM (ABNORMAL) POCT [...] City/[facility]/[place] [address] CERNER MILLENNIUM Specimen to Pathology (surgical or derm) (03/28/2013 12:14 PM EDT) Specimen Anatomical Collection Method Collection Time Receive d Time (Source) Location / / Volume Laterality AP Specimen 03/28/2013 12:14 03/28/2013 PM EDT 12:14 PM EDT Narrative [facility] - 03/28/2013 12:14 PM EDT Specimen requisition ordered. ??Separate Pathology report to follow Mesha Mcknight MD PATHOLOGY/CYTOLOGY ORDERABLE S Performing Organization Address City/State/[place] [address] [facility] Pathology Addendum Report (03/28/2013 12:03 PM EDT) Component Value Ref Test Analysis Performed At [facility] Range Method Time Signature Addendum [facility] Report ? [facility] ? Provider: ?? MESHA MCKNIGHT Pt. Name: ?? GREGORY FATIMA ? Acc #: ?[id number] ?Pt. MRN: ?[id number] ? Col Date: ?? 03/28/2013 ?/Sex: ?1945,(68 [...] MD PATHOLOGY/CYTOLOGY ORDERABLE S Performing Organization Address [facility]/[place] [address] [facility] Surgical Pathology Report (03/28/2013 12:03 PM EDT) Component Value Ref Test Analysis Performed At [facility] gist Range Method Time Signature Surgical [facility] Pathology ? [facility] Report ? Provider: ?? MESHA MCKNIGHT Pt. Name: ?? GREGORY FATIMA ? Acc #: ?[id number] ?Pt. MRN: ?[id number] ? Col Date: ?? 03/28/2013 ?/Sex: ?1945,(68 [...] areas of hemorrhage and ? calcifications. ? [facility] ? Provider: ?? MESHA MCKNIGHT Pt. Name: ?? NATALYA GREGORY E ? Acc #: ?[id number] ?Pt. MRN: ?[id number] ? Col Date: ?? 03/28/2013 ?/Sex: ?1945,(68 years),Male ? Rec Date: ?? 03/28/2013 ?LOC: ?[facility] ? SURGICAL PATHOLOGY ? SECTIONS/PROCESSING: Car Changer sections are subm itted. (R6) ? B [...] Organization Address City/State/[place] [address] CERNER MILLENNIUM Frozen Section Report (03/28/2013 12:03 PM EDT) Component Value Ref Test Analysis Performed At [facility] Range Method Time Signature Frozen CERNER Section ? [facility] Report ? Provider: ?? MESHA MCKNIGHT Pt. Name: ?? GREGORY FATIMA ? Acc #: ?[id number] ?Pt. MRN: ?[id number] ? Col Date: ?? 03/28/2013 ?/Sex: ?1945,(68 years),Male ? Rec Date: ?? 03/28/2013 ?LOC: ?[facility] ? FROZEN SECTION REPORT ? ---Frozen Section Report--- ? Part A - Intraoperati ve gross consultation was performed. ??The case was ? discussed by phone with Dr. Mcknight, and no frozen ? section was performed. ? 03/31/13 ??Verified by: ??César STRANGE, Ruben Yusuf, Sowmya gist ? The [facility] gist whose electronic signature appears on [...] City/[facility]/ZIP Code Phon e Number [address] [facility] MILLENNIUM POCT Glucose (03/28/2013 12:00 PM EDT) P athologist Signature POC Glucose 134 60 - 199 CERNER mg/dL [facility] Comment: Supplemental ranges: <110 mg/dL before meals <200 mg/dL all other times of the day Specimen Anatomical Collection Method Collection Time Receive d Time (Source) Location / / Volume Laterality Blood specimen 03/28/2013 12:00 3 (specimen) PM EDT 12:00 PM EDT Mesha Mcknight MD POINT OF CARE TEST ORDERABLE S Performing Organization Address [facility]/ZIP Code Phon e Number [place] [address] [facility] Specimen to Pathology (surgical or derm) (03/28/2013 11:58 AM EDT) Specimen Anatomical Collection Method Collection Time Receive d Time (Source) Location / / Volume Laterality AP Specimen 03/28/2013 11:58 03/28/2013 AM EDT 11:58 AM EDT N[facility]ative [facility] 03/28/2013 11:58 AM EDT Specimen requisition ordered. ??Separate Pathology report to follow Mesha Mcknight MD PATHOLOGY/CYTOLOGY ORDERABLE S Performing Organization Address City/[facility]/ZIP Code [place] [address] [facility] Antibody screen (03/28/2013 9:37 AM EDT) Analysis Performed At Patho logist Time Signature Ab Screen Negative [facility] Interp [facility] Expires at [id number] [facility] 2358 on: MILLENNIUM Specimen Anatomical Collection Method Collection Time Receive d Time (Source) Location / / Volume Laterality Blood specimen 03/28/2013 9:37 AM 013 9:37 (specimen) EDT AM EDT Resulting Agency Comment Spec In Lab Mesha Mcknight MD BLOOD BANK ORDERABLES Performing Organization Address City/State/ZIP Code Phon e Number [address] CERNER MILLENNIUM ABO/Rh Typing [...] Organization Address City/State/ZIP Code Phon e Number [address] CERNER MILLENNIUM Differential, Automated [...] Organization Address City/State/[place] [address] CERNER MILLENNIUM (ABNORMAL) Basic [...] intervals supplied above were not validated at [facility]. Results from pediatri c patients should be [...] Organization Address City/State/[place] [address] CERNER MILLENNIUM (ABNORMAL) CBC [...] Organization Address City/State/[place] [address] CERNER MILLENNIUM POCT Glucose (03/28/2013 9:17 AM EDT) P athologist Signature POC Glucose 108 60 - 199 CERNER mg/dL [facility] Comment: Supplemental ranges: <110 mg/dL before meals <200 mg/dL all other times of the day Specimen Anatomical Collection Method Collection Time Receive d Time (Source) Location / / Volume Laterality Blood specimen 03/28/2013 9:17 AM 013 9:17 (specimen) EDT AM EDT Mesha Mcknight MD POINT OF CARE TEST ORDERABLE S Performing Organization Address City/[facility]/ZIP Code Phon e Number [address] RAKESH CARVALHOIUM Specimen to [...] Organization Address City/State/[place] [address] CERNER GRISELDAENNIUM documented in [...] override documented in this encounter Care Teams Picc Nurse Relationship Specialty Start Date End Date Angela Holliday APRN PCP - General 01/25/13 04/15/[address] [place] [address] documented as of this encounter
--- OUTSIDE RECORDS SUMMARY | 2022-02-16 08:23 | XMS_ITS | Encounter Summary ---
:1945 Author Organization [facility] [place] [address] Care Team Providers Name Role Phone Angela Holliday APRN Primary Care Provider Encounter Details Date Type Department Care Team Description 03/30/2013 Telephone General Surgery at [facility] Cliff Nevarez, [place] [address] Social History Tobacco Use Types Packs/Day [...] PA [facility] Cardiology Dept [place], [place] [address] (Wo rk) 03/26/2022 Office Visit Cardiology Vitaliy Nobles MD [facility] CARDIOLOGY [place], [place] [address] (Wo rk) documented as of this encounter Visit Diagnoses Not on filedocumented in this encounter Care Teams Formal Wear Rental Clerk Relationship Specialty Start Date End Date Angela Holliday APRN PCP - General 01/25/13 04/15/[address] [place] [address] documented as of this encounter
--- OUTSIDE RECORDS SUMMARY | 2022-02-16 08:23 | XMS_ITS | Encounter Summary ---
:1945 Author Organization [facility] Address [facility] [place] [address] Care Team Providers Name Role Phone Unknown Primary Care Provider Unavailable Reason for Visit Reason Comments Skin Check Encounter Details Date Type Department Care Team Description 10/04/2012 Follow-Up Dermatology at Rigoberto Forman soriasis (Primary Dx); Abdelrahman HOOPER MD Neoplasm of unspecified nature of bone, soft tissue, and skin; [address] [facility] Skin lesion of chest wall; [place] [address] Seborrheic psoriasis- scalp and ingtergl uteal area [phone] [facility]DER[facility] [place], [place] [address] (Wo rk) Social History Tobacco [...] changes: Rigoberto Albarran MD Section of Dermatology [facility] documented in this encounter Plan of Treatment Upcoming Encounters Date Type Specialty Care Team Description 02/19/2022 Laboratory Appointment Lab 02/19/2022 Office Visit Cardiology Liz Poole PA [facility] Cardiology Dept [place], [place] [address] (Wo rk) 03/26/2022 Office Visit Cardiology Vitaliy Nobles MD [facility] CARDIOLOGY [place], [place] [address] (Wo rk) documented as of [...] Component Value Ref Test Analysis Performed At [facility] Range Method Time Signature Surgical CERNER Pathology ? [facility] Report ? Provider: ?? RIGOBERTO ALBARRAN III Pt. Name: ?? DON HOANG ?A ? Acc #: ?[id number] ? Pt. ? Col Date: ?? 3 [...] MD PATHOLOGY/CYTOLOGY ORDERABLE S Performing Organization Address City/[facility]/[place] [address] CERNER MILLENNIUM Specimen to [...] MD PATHOLOGY/CYTOLOGY ORDERABLE S Performing Organization Address City/[facility]/[place] [address] CERNER MILLENNIUM documented in this encounter Visit Diagnoses Diagnosis Psoriasis - Primary Other psoriasis Neoplasm of unspecified nature of bone, soft tissue, and skin Skin lesion of chest wall Unspecified disorder of skin and subcuta neous tissue Seborrheic psoriasis- scalp and ingtergl uteal area Other psoriasis documented in this encounter Care Teams Industrial Truck Driver Relationship Specialty Start Date End Date Unknown PCP - General 10/04/12 01/24/13 None documented as of this encounter
--- OUTSIDE RECORDS SUMMARY | 2022-02-16 08:23 | XMS_ITS | Encounter Summary ---
:1945 Author Organization [facility] [place] [address] Care Team Providers Name Role Phone NeilSom conner STACIE Primary Care Provider Reason for Visit Reason Comments Establish Care OBST GOITER Encounter Details Date Type Department Care Team Description 01/25/2013 Office Visit General Surgery at [facility] er colloid, toxic, [facility] MD Eliseo nodular (Primary Dx) [facility] [place], [place] GENERAL SURGERY [id number] [place], [place] [id number] [phone] Social History Tobacco Use Types Packs/Day Years [...] the thyroid gland were obtained using a SonoSiNykaa MicroMaxx and an HFL38/13-6 broadband linear array [...] on physical exam. ROS: No H/O asthma, MD, stroke, pulmonary embolus or phlebitis. Comprehensive review [...] agrees to proceed. Will sign in through [facility]. Consent is signed. Send copy to Dr. SOM HOLLIDAY APRN and Elijah Elias MD. documented in this encounter Plan of Treatment Upcoming Encounters Date Type Specialty Care Team Description 02/19/2022 Laboratory Appointment Lab 02/19/2022 Office Visit Cardiology Liz Poole PA [facility] er Cardiology Dept [place], [place] [address] (Wo rk) 03/26/2022 Office Visit Cardiology Vitaliy Nobles MD [facility] CARDIOLOGY [place], [place] [address] (Wo rk) documented as of [...] 406 ms MUSE SYSTEM (Bezet) Calculated P [place] 52 degrees MUSE SYSTEM Calculated R [place] 0 degrees MUSE SYSTEM Calculated T [place] 40 degrees MUSE SYSTEM INTERPRETATION Normal sinus [...] storm documented in this encounter Care Teams Sole Dyer Relationship Specialty Start Date End Date Som Holliday APRN PCP - General 01/25/13 04/15/[address] [place] [address] documented as of this encounter
--- OUTSIDE RECORDS SUMMARY | 2022-02-16 08:23 | XMS_ITS | Encounter Summary ---
:1945 Author Organization [facility] [place] [address] Care Team Providers Name Role Phone Miya Angela STACIE Primary Care Provider Encounter Details Date Type Department Care Team Description 04/24/2013 Telephone Urology at [facility] Zhen Bowman MD [facility] [place] [address] UROLOGY DEPT [phone] [place], [place] [address] (Wo rk) Social History Tobacco [...] Poole PA [facility] Cardiology Dept [place], [place] [address] (Wo rk) 03/26/2022 Office Visit Cardiology Vitaliy Nobles MD [facility] CARDIOLOGY [place], [place] [address] (Wo rk) documented as of this encounter Visit Diagnoses Not on filedocumented in this encounter Care Teams Stagecraft Teacher Relationship Specialty Start Date End Date Angela Holliday APRN PCP - General 01/25/13 04/15/[address] [place] [address] documented as of this encounter
--- OUTSIDE RECORDS SUMMARY | 2022-02-16 08:23 | XMS_ITS | Encounter Summary ---
:1945 Author Organization [facility] [place] [address] Care Team Providers Name Role Phone Angela Holliday APRN Primary Care Provider Encounter Details Date Type Department Care Team Description 01/25/2013 Clinical [place] [address] Social History Tobacco Use Types Packs/Day [...] 02/19/2022 Office Visit Cardiology Lzi Poole PA [facility] Cardiology Dept [place], [place] [address] (Wo rk) 03/26/2022 Office Visit Cardiology Vitaliy Nobles MD [facility] CARDIOLOGY [place], [place] [address] (Wo rk) documented as of this encounter Visit Diagnoses Not on filedocumented in this encounter Care Teams Telemetry Technician Relationship Specialty Start Date End Date Angela Holliday APRN PCP - General 01/25/13 04/15/[address] [place] [address] documented as of this encounter
--- OUTSIDE RECORDS SUMMARY | 2022-02-16 08:23 | XMS_ITS | Encounter Summary ---
:1945 Author Organization [facility] [place] [address] Care Team Providers Name Role Phone MiyaLokeshAngela STACIE Primary Care Provider Encounter Details Date Type Department Care Team Description 04/04/2013 Orders Only General Surgery at [facility] thyroid [facility] MD Eliseo carcinoma (Primary Dx) [facility] [place] [address] GENERAL SURGERY [phone] [place], [place] [address] Social History Tobacco Use Types [...] [facility] er Cardiology Dept [place], [place] [address] (Wo rk) 03/26/2022 Office Visit Cardiology Vitaliy Nobles MD [facility] ER CARDIOLOGY [place], [place] [address] (Wo rk) documented as of this encounter Visit Diagnoses Diagnosis Papillary thyroid carcinoma - Primary Malignant neoplasm of thyroid gland documented in this encounter Care Teams Dynamometer Mechanic Relationship Specialty Start Date End Date Angela Holliday APRN PCP - General 01/25/13 04/15/[address] [place] [address] documented as of this encounter
--- OUTSIDE RECORDS SUMMARY | 2022-02-16 08:23 | XMS_ITS | Encounter Summary ---
:1945 Author Organization [facility] [place] [address] Care Team Providers Name Role Phone Angela Holliday APRN Primary Care Provider Encounter Details Date Type Department Care Team Description 03/30/2013 Telephone General Surgery at [facility] Cliff Nevarez, [place] [address] Social History Tobacco Use Types Packs/Day [...] [facility] er Cardiology Dept [place], [place] [address] (Wo rk) 03/26/2022 Office Visit Cardiology Vitaliy Nobles MD [facility] ER CARDIOLOGY [place], [place] [address] (Wo rk) documented as of this encounter Visit Diagnoses Not on filedocumented in this encounter Care Teams Montessori Paraprofessional Relationship Specialty Start Date End Date Angela Holliday APRN PCP - General 01/25/13 04/15/[address] [place] [address] documented as of this encounter
--- OUTSIDE RECORDS SUMMARY | 2022-02-16 08:23 | XMS_ITS | Encounter Summary ---
:1945 Author Organization [facility] [place] [address] Care Team Providers Name Role Phone Adi Costello MD Primary Care Provider Reason for Visit Reason Comments Annual Exam ckeck his groin and melanoma follow-up Encounter Details Date Type Department Care Team Description 11/21/2010 Follow-Up Dermatology Arik Tipton Melanoma (Primary Dx) [facility] MD [place] [phone] DERMATOLOGY DEPT . 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 His only complaints are leg cramps, skin [...] changes: Arik Tipton MD Section of Dermatology [facility] documented in this encounter Plan of Treatment Upcoming Encounters Date Type Specialty Care Team Description 02/19/2022 Laboratory Appointment Lab 02/19/2022 Office Visit Cardiology Liz Poole PA [facility] Medical [facility] er Cardiology Dept [place], [place] [address] (Wo rk) 03/26/2022 Office Visit Cardiology Vitaliy Nobles MD [facility] ER CARDIOLOGY [place], [place] [address] (Wo rk) documented as of this encounter Visit Diagnoses Diagnosis Melanoma - Primary Melanoma of skin, site unspecified documented in this encounter Care Teams Warehouse Insulation Worker Relationship Specialty Start Date End Date Adi Costello MD PCP - General 06/17/10 09/21/11 [address] [place] [address] documented as of this encounter
--- OUTSIDE RECORDS SUMMARY | 2022-02-16 08:23 | XMS_ITS | Encounter Summary ---
:1945 Author Organization [facility] [place] [address] Care Team Providers Name Role Phone Angela Holliday APRN Primary Care Provider Reason for Referral Surgical (Routine) - Closed Specialty Diagnoses / Procedures Referred By Contact Refer red To Contact General Surgery Diagnoses Elijah Villagomez MD Colacchio, Thomas A, MD [address] [place] [address] [place] [address] [place] [address] Phone: Fax: Referral ID Status Reason Start Date Expiration Date Visits V isits Requested Authorized [id number] Closed Specialty 01/25/2013 07/24/2013 1 1 Service Requested Reason for Visit Reason Comments Thyroid Problem Encounter Details Date Type Department Care Team Description 01/25/2013 Office Visit Endocrinology at [facility] Elijah Fuentes Goiter (Primary Dx) [facility] [address] [place] [address] [place] [address] [phone] Social History Tobacco Use Types Packs/Day Years [...] History 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 All other [...] the thyroid gland were obtained using a SonRoostaxx and an HFL38/13-6 broadband linear array transducer. [...] PA [facility] Cardiology [place], [place] [address] (Wo rk) 03/26/2022 Office Visit Cardiology Vitaliy Nobles MD [facility] CARDIOLOGY [place], [place] [address] (Wo rk) Scheduled Referrals Name [...] Organization Address City/State/ZIP [place] [address] [facility] documented in this encounter Visit Diagnoses Diagnosis Goiter - Primary Goiter, unspecified documented in this encounter Care Teams Embossing Machine Operator Helper Relationship Specialty Start Date End Date Angela Holliday APRN PCP - General 01/25/13 04/15/[address] [place] [address] documented as of this encounter
--- OUTSIDE RECORDS SUMMARY | 2022-02-16 08:23 | XMS_ITS | Encounter Summary ---
:1945 Author Organization [facility] [place] [address] Care Team Providers Name Role Phone MiyaAngela STACIE Primary Care Provider Reason for Visit Reason Comments Post Op voiding trial Encounter Details Date Type Department Care Team Description 04/05/2013 Office Visit Urology at [facility] Darryl Egan, UTI ([facility] MD tract infection) [facility] (Primary Dx) [place] [address] UROLOGY DEPT [phone] [place], [place] [address] Social History Tobacco Use Types [...] [facility] Dept [place], [place] [address] (Wo rk) 03/26/2022 Office Visit Cardiology Vitaliy Nobles MD [facility] ER CARDIOLOGY [place], [place] [address] (Wo rk) documented as of this encounter Procedures Procedure Name Priority Date/Time Associated Diagnosis Comme nts URINE CULTURE Routine 04/05/2013 11:48 AM UTI (lower urinary R esults for this EDT tract infection) procedure a re in the results section . documented in this encounter Results Urine culture Clean Catch Urine (04/05/2013 11:48 AM EDT) Component Value Ref Test Analysis Performed At [facility] Method Time Signature Urine Culture CERNER ? Patient Name: DON HOANG ? Ordered By: DARRYL EGAN [facility] ? MR#: [id number] ?LOC: ??5B ? /Sex: ??1945 (68 years), [...] S ? Patient: DON HOANG ? MR#: [id number] ? FOOTNOTES ? (1) ? This organism [...] Organization Address City/State/[place] [address] [facility] documented in this encounter Visit Diagnoses Diagnosis UTI (lower urinary tract infection) - Pr imary Urinary tract infection, site not specif ied documented in this encounter Care Teams Infantry Assaultman Relationship Specialty Start Date End Date Angela Holliday APRN PCP - General 01/25/13 04/15/[address] [place] [address] documented as of this encounter
--- OUTSIDE RECORDS SUMMARY | 2022-02-16 08:23 | XMS_ITS | Encounter Summary ---
:1945 Author Organization [facility] [address] Care Team Providers Name Role Phone Miya Angela STACIE Primary Care Provider Encounter Details Date Type Department Care Team Description 04/04/2013 Telephone Urology at [facility] Parker Sanchez MD [facility] [place] [address] UROLOGY DEPT [phone] [place], [place] [address] (Wo rk) Social History Tobacco [...] Liz Poole PA [facility] er Cardiology Dept [place], [place] [address] (Wo rk) 03/26/2022 Office Visit Cardiology Vitaliy Nobles MD [facility] ER CARDIOLOGY [place], [place] [address] (Wo rk) documented as of this encounter Visit Diagnoses Not on filedocumented in this encounter Care Teams Clean Energy Policy Analyst Relationship Specialty Start Date End Date Angela Holliday APRN PCP - General 01/25/13 [address] [place] [address] documented as of this encounter
--- OUTSIDE RECORDS SUMMARY | 2022-02-16 08:23 | XMS_ITS | Encounter Summary ---
:1945 Author Organization [facility] [place] [address] Care Team Providers Name Role Phone Brody Berrios MD Primary Care Provider Reason for Visit Reason Comments Annual Exam Encounter Details Date Type Department Care Team Description 09/22/2011 Follow-Up Dermatology Arik Tipton Psoriasis (Primary Dx); [facility] MD Jorge Personal history of other malignant neop lasm of skin Drive [place] [phone] DERMATOLOGY DEPT . 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 His only complaints tail bone and scalp [...] changes: Arik Tipton MD Section of Dermatology [facility] [place] documented in this encounter Plan of Treatment Upcoming Encounters Date Type Specialty Care Team Description 02/19/2022 Laboratory Appointment Lab 02/19/2022 Office Visit Cardiology Liz Poole PA [facility] Cardiology Dept [place], [place] [address] (Wo rk) 03/26/2022 Office Visit Cardiology Vitaliy Nobles MD [facility] CARDIOLOGY [place], [place] [address] (Wo rk) documented as of this encounter Visit Diagnoses Diagnosis Psoriasis - Primary Other psoriasis Personal history of other malignant neop lasm of skin documented in this encounter Care Teams Patient Registration Clerk Relationship Specialty Start Date End Date Brody Berrios MD PCP - General 09/22/11 10/03/[address] [place] [address] [address] [place] [address] documented as of this encounter
--- OUTSIDE RECORDS SUMMARY | 2022-02-16 08:23 | XMS_ITS | Encounter Summary ---
:1945 Author Organization [facility] [place] [address] Care Team Providers Name Role Phone MiyaLokeshAngela STACIE Primary Care Provider Reason for Visit Reason Onset Date Comments Post-op Problem 04/05/2013 voiding trial Encounter Details Date Type Department Care Team Description 04/05/2013 Telephone Urology at [facility] Blade Smith, Post-op Problem [facility] (voiding trial) [place] [address] UROLOGY DEPT [place] [phone] (Wo rk) Social History Tobacco Use Types [...] Liz Poole PA [facility] Cardiology [place], [place] [address] (Wo rk) 03/26/2022 Office Visit Cardiology Vitaliy Nobles MD [facility] CARDIOLOGY [place], [place] [address] (Wo rk) documented as of this encounter Visit Diagnoses Not on filedocumented in this encounter Care Teams Rag Boiler Relationship Specialty Start Date End Date Angela Holliday APRN PCP - General 01/25/13 04/15/[address] [place] [address] documented as of this encounter
--- OUTSIDE RECORDS SUMMARY | 2022-02-16 08:23 | XMS_ITS | Encounter Summary ---
:1945 [place] [address] Care Team Providers Name Role Phone Holley Hollidayica STACIE Primary Care Provider Encounter Details Date Type Department Care Team Description 03/28/2013 [facility] 03/29/2013 Barbara Gomes MD Dx) [facility] [address] Siddiqui [place] [phone] Social History Tobacco Use Types Packs/Day Years [...] please call the General Surgery nurse at [phone], since this may mean that you need morecalcium. Follow-up Appointment: Will be scheduled with Dr. Mcknight in 6 weeks Date and time as well as any required labs will be mailed to you Please call [phone] to confirm date and time of your [...] by calcium supplementation. Phone number for questions: [phone] before 5 PM weekdays [phone] after 5 PM and on weekends/holidays Please follow up with Urology as per their recommendations for Bob removal AttachmentsThe following attachments cannot be sent through Care Everywhere. THYROIDECTOMY: WHAT TO EXPECT AT HOME (JAPANESE)URINARY CATHETER CARE: AFTER YOUR VISIT (JAPANESE)documented in this encounter Medications at Time of [...] floor. documented in this encounter H&P Notes eMsha Mcknight MD - 03/27/2013 5:23 PM EDT Gregory Fatima is a 68 y.o. male presents to [facility] today for total thyroidectomy. See full [...] MD - 03/28/2013 3:43 PM EDT [facility] [place] Note Patient Name: Gregory Fatima : [id number] MR#: [id number] Case Date: 03/28/2013 Surgeon: Surgeon(s) and Role: [...] patient was extubated and taken to the [facility] in stable condition. At the end [...] Operative Note Patient Name: Gregory Fatima : [id number] MR#: [id number] Case Date: 03/28/2013 Surgeon: Surgeon(s) and Role: [...] PA [facility] Cardiology Dept [place], [place] [address] (Wo rk) 03/26/2022 Office Visit Cardiology Vitaliy Nobles MD [facility] CARDIOLOGY [place], [place] [address] (Wo rk) documented as of [...] Address City/State/ZIP Code Phon e Number [address] CERNER MILLENNIUM (ABNORMAL) POCT [...] Organization Address City/State/[place] [address] CERNER MILLENNIUM (ABNORMAL) POCT [...] Organization Address City/State/[place] [address] CERNER MILLENNIUM (ABNORMAL) POCT [...] CARE TEST ORDERABLE S Performing Organization Address City/[facility]/ZIP Code Phon e Number [address] CERNER MILLENNIUM (ABNORMAL) POCT [...] CARE TEST ORDERABLE S Performing Organization Address City/[facility]/ZIP Code Phon e Number [address] CERNER MILLENNIUM (ABNORMAL) POCT [...] Organization Address City/State/[place] [address] CERNER MILLENNIUM (ABNORMAL) POCT [...] CARE TEST ORDERABLE S Performing Organization Address City/[facility]/ZIP Code Phon e Number [address] CERNER MILLENNIUM (ABNORMAL) POCT [...] CARE TEST ORDERABLE S Performing Organization Address City/[facility]/[place] [address] CERNER MILLENNIUM Specimen to Pathology (surgical or derm) (03/28/2013 12:14 PM EDT) Specimen Anatomical Collection Method Collection Time Receive d Time (Source) Location / / Volume Laterality AP Specimen 03/28/2013 12:14 03/28/2013 PM EDT 12:14 PM EDT Narrative [facility] - 03/28/2013 12:14 PM EDT Specimen requisition ordered. ??Separate Pathology report to follow Mesha Mcknight MD PATHOLOGY/CYTOLOGY ORDERABLE S Performing Organization Address City/State/Z[place] [address] [facility] Pathology Addendum Report (03/28/2013 12:03 PM EDT) Component Value Ref Test Analysis Performed At [facility] Range Method Time Signature Addendum [facility] Report ? [facility] ? Provider: ?? MESHA MCKNIGHT Pt. Name: ?? GREGORY FATIMA ? Acc #: ?[id number] ?Pt. MRN: ?[id number] ? Col Date: ?? 03/28/2013 ?/Sex: ?1945,(68 [...] MD PATHOLOGY/CYTOLOGY ORDERABLE S Performing Organization Address [facility]/[place] [address] [facility] Surgical Pathology Report (03/28/2013 12:03 PM EDT) Component Value Ref Test Analysis Performed At [facility] gist Range Method Time Signature Surgical [facility] Pathology ? [facility] Report ? Provider: ?? MESHA MCKNIGHT Pt. Name: ?? GREGORY FATIMA ? Acc #: ?[id number] ?Pt. MRN: ?[id number] ? Col Date: ?? 03/28/2013 ?/Sex: ?1945,(68 [...] areas of hemorrhage and ? calcifications. ? [facility] ? Provider: ?? MESHA MCKNIGHT Pt. Name: ?? NATALYA GREGORY E ? Acc #: ?[id number] ?Pt. MRN: ?[id number] ? Col Date: ?? 03/28/2013 ?/Sex: ?1945,(68 years),Male ? Rec Date: ?? 03/28/2013 ?LOC: ?[facility] ? SURGICAL PATHOLOGY ? SECTIONS/PROCESSING: Power Shear Operator sections are subm itted. (R6) ? B [...] Organization Address City/State/[place] [address] CERNER MILLENNIUM Frozen Section Report (03/28/2013 12:03 PM EDT) Component Value Ref Test Analysis Performed At [facility] Range Method Time Signature Frozen CERNER Section ? [facility] ? Provider: ?? MESHA MCKNIGHT Pt. Name: ?? GREGORY FATIMA ? Acc #: ?[id number] ?Pt. MRN: ?[id number] ? Col Date: ?? 03/28/2013 ?/Sex: ?1945,(68 years),Male ? Rec Date: ?? 03/28/2013 ?LOC: ?[facility] ? FROZEN SECTION REPORT ? ---Frozen Section Report--- ? Part A - Intraoperati ve gross consultation was performed. ??The case was ? discussed by phone with Dr. Mcknight, and no frozen ? section was performed. ? 03/31/13 ??Verified by: ??César STRANGE, Ruben Yusuf, Sowmya gist ? The attending [facility] gist whose electronic signature appears on [...] MD PATHOLOGY/CYTOLOGY ORDERABLE S Performing Organization Address City/[facility]/ZIP Code Phon e Number [address] [facility] MILLENNIUM POCT Glucose (03/28/2013 12:00 PM EDT) P athologist Signature POC Glucose 134 60 - 199 CERNER mg/dL [facility] Comment: Supplemental ranges: <110 mg/dL before meals <200 mg/dL all other times of the day Specimen Anatomical Collection Method Collection Time Receive d Time (Source) Location / / Volume Laterality Blood specimen 03/28/2013 12:00 3 (specimen) PM EDT 12:00 PM EDT Mesha Mcknight MD POINT OF CARE TEST ORDERABLE S Performing Organization Address [facility]/ZIP Code Phon e Number [place] [address] [facility] Specimen to Pathology (surgical or derm) (03/28/2013 11:58 AM EDT) Specimen Anatomical Collection Method Collection Time Receive d Time (Source) Location / / Volume Laterality AP Specimen 03/28/2013 11:58 03/28/2013 AM EDT 11:58 AM EDT Narrative [facility] 03/28/2013 11:58 AM EDT Specimen requisition ordered. ??Separate Pathology report to follow Mesha Mcknight MD PATHOLOGY/CYTOLOGY ORDERABLE S Performing Organization Address City/[facility]/ZIP Code [place] [address] [facility] Antibody screen (03/28/2013 9:37 AM EDT) Analysis Performed At Patho logist Time Signature Ab Screen Negative [facility]p [facility] Expires at [id number] [facility] [id number] on: MILLENNIUM Specimen Anatomical Collection Method Collection Time Receive d Time (Source) Location / / Volume Laterality Blood specimen 03/28/2013 9:37 AM 013 9:37 (specimen) EDT AM EDT Resulting Agency Comment Spec In Lab Mesha Mcknight MD BLOOD BANK ORDERABLES Performing Organization Address City/State/ZIP Code Phon e Number [address] CERNER MILLENNIUM ABO/Rh Typing [...] Address City/State/ZIP Code Phon e Number [address] CERNER MILLENNIUM Differential, Automated [...] Organization Address City/State/ZIP [place] [address] CERNER MILLENNIUM (ABNORMAL) Basic [...] supplied above were not validated at [facility]. Results from pediatri c patients should be [...] Organization Address City/State/[place] [address] CERNER MILLENNIUM (ABNORMAL) CBC [...] Organization Address City/State/[place] [address] CERNER MILLENNIUM POCT Glucose (03/28/2013 9:17 AM EDT) P athologist Signature POC Glucose 108 60 - 199 CERNER mg/dL [facility] Comment: Supplemental ranges: <110 mg/dL before meals <200 mg/dL all other times of the day Specimen Anatomical Collection Method Collection Time Receive d Time (Source) Location / / Volume Laterality Blood specimen 03/28/2013 9:17 AM 013 9:17 (specimen) EDT AM EDT Mesha Mcknight MD POINT OF CARE TEST ORDERABLE S Performing Organization Address City/[facility]/ZIP Code Phon e Number [address] RAKESH CARVALHOIUM Specimen to [...] Organization Address City/State/[place] [address] CERKERI CARVALHOIUM documented in [...] a Procedural area)2100 (Given - Provider: Kesha rGacia RN) 0900 (Given - Provider: Radha christine [...] override documented in this encounter Care Teams Regroover Relationship Specialty Start Date End Date Angela Holliday APRN PCP - General 01/25/13 04/15/15 [address] [place] [address] documented as of this encounter
--- OUTSIDE RECORDS SUMMARY | 2022-02-16 08:23 | XMS_ITS | Encounter Summary ---
:1945 [place] [address] Care Team Providers Name Role Phone MiyaLokeshAngela STACIE Primary Care Provider Encounter Details Date Type Department Care Team Description 03/28/2013 Anesthesia Event Main Operating Room Meredith Calvert MD [facility] [place] [address] [facility] Nolvia Riojas PA [facility] [place] [address] [place] [address] Anesthesia Record Procedure Summary Procedure Name [...] 02/19/2022 Office Visit Cardiology Liz Poole PA [facility] Cardiology Dept [place], [place] [address] (Wo rk) 03/26/2022 Office Visit Cardiology Vitaliy Nobles MD [facility] CARDIOLOGY [place], [place] [address] (Wo rk) documented as of [...] Routine documented in this encounter Care Teams Applications Packager Relationship Specialty Start Date End Date Angela Holliday APRN PCP - General 01/25/13 04/15/[address] [place] [address] documented as of this encounter
--- OUTSIDE RECORDS SUMMARY | 2022-02-16 08:23 | XMS_ITS | Encounter Summary ---
:1945 Author Organization [facility] [place] [address] Care Team Providers Name Role Phone Unknown Primary Care Provider Unavailable Reason for Visit Reason Comments Other Encounter Details Date Type Department Care Team Description 10/05/2012 Telephone Dermatology at [facility] Rigoberto Garcia III, [address] [place] [address] [facility] [phone] TEJA [place] [address] (Wo rk) Social History Tobacco Use Types [...] [facility] Card[facility] Dept [place], [place] [address] (Wo rk) 03/26/2022 Office Visit Cardiology Vitaliy Nobles MD [facility] CARDIOLOGY [place], [place] [address] (Wo rk) documented as of this encounter Visit Diagnoses Not on filedocumented in this encounter Care Teams Lace Winder Relationship Specialty Start Date End Date Unknown PCP - General 10/04/12 01/24/13 None documented as of this encounter
--- OUTSIDE RECORDS SUMMARY | 2022-02-16 08:25 | XMS_ITS ---
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 Problem Critical ischemia I99.8 Active of lower extremity Problem Atherosclerosis I70.90 Active 3871 6007 Problem Type 2 diabetes E11.628 Active mellitus with other skin complications Problem 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 40 ; Acquired deformi ty of right foot M21.961 ; L luis term current use of i nsulin Z79.4 ; History of art erial bypass of lower extremi ty Z95.828 ; Atherosclerosis I70.90 and History of Lisfr anc amputation of fo ot Z89.439 [facility] Feb, Type 2 diabet es mellitus [address] [place] with diabe tic neuropathy, [address] unspecified E11. 40 ; Acquired deformi ty of right foot M21.961 ; L luis term current use of i nsulin Z79.4 ; History of art erial bypass of lower extremi ty Z95.828 ; Atherosclerosis I70.90 and History of Lisfr anc amputation of fo ot Z89.439 [facility] November, [place] [address] [facility] [facility] November, Type 2 [place] [address] with diabeti c neuropathy, unspecified E11. 40 ; Acquired deformi ty of right foot M21.961 ; L luis term current use of i nsulin Z79.4 ; History of art erial bypass of lower extremi ty Z95.828 ; Atherosclerosis I70.90 and History of Lisfr anc amputation of fo ot Z89.439 [facility] 10 Aug, 2019 Type 2 [place] [address] with other skin complications E1 1.628 ; Tinea pedis of l eft foot B35.3 ; Type 2 d iabetes mellitus with di abetic neuropathy, unsp ecified E11.40 ; Acquire d deformity of right foot M2 1.961 ; alf current use of insulin Z79.4 ; History of arterial bypass of lower extremity Z95.828 and Athe rosclerosis I70.90 [facility] Jun, [place] [address] [address] Jun, [place] [address] Jun, Type 2 diabet es mellitus [place], [place] with other skin [address] complications E1 1.628 ; Acquired deformi ty of right foot M21.961 ; T ype 2 diabetes mellitu s with diabetic neuropa thy, unspecified E11. 40 ; manager long term care current use of insulin Z79.4 and Histor y of arterial bypass of lower extremity Z95.82 8 [facility] Feb, Type 2 [place] [address] with other s kin complications E1 1.628 ; Acquired deformi ty of right foot M21.961 ; T ype 2 diabetes mellitu s with diabetic neuropa thy, unspecified E11. 40 ; alf current use of insulin Z79.4 and Histor y of arterial bypass of lower extremity Z95.82 8 [facility] November, Tinea pedis o f left foot [place], [place] B35.3 ; Ty pe 2 diabetes [address] mellitus with ot her skin complications E1 1.628 ; Acquired deformi ty of right foot M21.961 ; T ype 2 diabetes mellitu s with diabetic neuropa thy, unspecified E11. 40 ; manager long term care current use of insulin Z79.4 and Histor y of arterial bypass of lower extremity Z95.82 8 [facility] November, [place] [address] [address] Aug, Type 2 diabet es mellitus [place] with diabe tic neuropathy, [address] unspecified E11. 40 ; Acquired deformi ty of right foot M21.961 ; P eripheral arterial disease I73.9 ; History of arter ial bypass of lower extremi ty Z95.828 ; alf curren t use of insulin Z79.4 an d History of Lisfranc amputat ion of foot Z89.439 UNKNOWN Jul, [facility] 11 Jun, 2018 Type 2 [place] [address] with diabeti c neuropathy, unspecified E11. [address] [facility] Apr, Edema of both legs R60.0 ; [place], [place] Acquired d eformity of right [address] foot M21.961 ; P eripheral arterial disease I73.9 ; History of arter ial bypass of lower extremi ty Z95.828 ; manager long term care curren t use of insulin Z79.4 an d Type 2 diabetes mellitu s with diabetic neuropa thy, unspecified E11. [address] [facility] Mar, [place] [address] Mar, Edema of both legs R60.0 ; [place] Acquired d eformity of right 65[address] foot M21.961 ; P eripheral arterial disease I73.9 ; History of arter ial bypass of lower extremi ty Z95.828 ; manager long term care curren t use of insulin Z79.4 an d Type 2 diabetes mellitu s with diabetic neuropa thy, unspecified E11. 40 [facility] Feb, Edema of both legs R60.0 ; [place] [address] Ulcer of lef t calf, limited to breakdown of skin L97.221 ; Acquired defor mity of right foot M21.9 61 ; Peripheral arter ial disease I73.9 ; History of arterial bypass of lower extremity Z95.828 ; Long t erm current use of insulin Z 79.4 and Type 2 diabetes mellitus with diabetic ne uropathy, unspecified E11. 40 [facility] 1 Feb, OFF[place] [facility] [place] [address] [facility] Feb, Edema of both legs R60.0 ; [place] [address] Ulcer of rig ht calf, limited to [...] uropathy, unspecified E11. 40 [facility] [address] [facility] Feb, [place] [address] [facility] [address] [facility] [address] Feb, [place] [address] [facility] [address] [facility] [address] Jan, [place] [address] [facility] [address] [facility] [address] Jan, [place] [address] [facility] [address] [facility] [address] Jan, [place] [address] [facility] [address] [facility] [address] [address] Jan, [place] [address] [facility] [address] [facility] [address] Jan, [place] [address] [facility] [address] [facility] [address] Dec, [place] [address] [facility] [address] [facility] [address] [address] Dec, [place] [address] [facility] [address] [facility] [address] Dec, [place] [address] [facility] [address] [facility] [address] Dec, [place] [address] [facility] Dec, [place] [address] [facility] [address] [facility] [address] Dec, [place] [address] [facility] November, [place] [address] [facility] November, [place] [address] [facility] November, [place] [address] [facility] November, [place] [address] [facility] November, [place] [address] [facility] November, [place] [address] UNKNOWN November, [facility] [address] November, [place] [address] [facility] November, [place] [address] [facility] Oct, [place] [address] [facility] Oct, [place] [address] [facility] Oct, [place] [address] [facility] [address] 18 Oct, 2017 [place] [address] [facility] 16 Oct, 2017 [place] [address] [facility] [facility] [address] [place] 16 Oct[facility] 2017 [facility] [address] [facility] Oct, [place] [address] [facility] Oct, [place] [address] [facility] Oct, [place] [address] [facility] [address] Sep, [facility] [address] [facility] Sep, [place] [address] [facility] [address] Sep, [place] [address] [facility] [address] Sep, [place] [address] [facility] [address] [place] Sep, [place] [address] [facility] [address] Sep, Critical ischemi a of lower [place] [address] extremity I 99.8 ; Local infection of the skin and subcutaneous tis lindsey, unspecified L08. 9 and Type 2 diabetes mellitu s with other skin complicatio ns E11.628 [facility] [address] [facility] Sep, [place] [address] [facility] [address] [facility] [address] Sep, [place] [address] [facility] [address] [facility] [address] Sep, [place] [address] [facility] [address] [facility] [address] 14 Sep, [address] [place] [address] [facility] Sep, [place] [address] [facility] Sep, [place] [address] [facility] [address] [facility] Sep, [place] [address] [facility] [address] [facility] Sep, [place] [address] [facility] [address] [facility] [address] Aug, [place] [address] [facility] [address] [place] Aug, [facility] [address] [facility] [address] Aug, [place] [address] [facility] [address] [facility] Aug, [place] [address] [facility] [address] [facility] Aug, [place] [address] [facility] [address] [facility] Aug, [place] [address] ORTHOPEDIC OFFICE [address] [facility] Aug, Pre-op exam Z01.818 [place] [address] [facility] Aug, [place] [address] [facility] Aug, [place] [address] [facility] Aug, [place] [address] IMMUNIZATIONS No Known Immunizations SOCIAL HISTORY Qualifiers [...] subcutaneously 22 24h Active units/mL daily Pen [place] Active Ciclopirox Externally Twice 1 application 12h [...] For Report MR Lower Ext R w/o ([id number]) 2017-09-16 See Below For Report CR C-ARM [...] A1c 03/04/18 - 6.7, [facility] [facility], f/u - bilateral leg edema, Pt [...] at wound center,lab work done 03/07/2018 @ [facility], Patient came in with tubigrip bilateral , wound clin est, wound clinest, Wound CTR-follow up, Wound CTR-follow up, Wound CTR-follow up, Peer to Peer w/ Dr. Espino, Wound CTR-follow up, Wound CTR-follow up, Spar Machine Operator Documentation, LAB, Wound CTR-follow up, Wound CTR-follow up, Wound CTR-follow up, Wound CTR-follow up, LAB, LAB, Wound CTR- follow up, Wound CTR-follow up, Wound CTR-follow up, Spar Machine Operator Documentation, [facility], Wound CTR-follow up, Wound CTR-follow up, Pull PICC Line, Wound CTR-follow up, Wound CTR-follow up, LAB, Still taking doxycycline 100mg? , Wound CTR-follow up, Wound CTR-follow up, Wound CTR-follow up, Spar Machine Operator Documentation, Wound CTR-follow up, Wound CTR-follow up, Call back, Spar Machine Operator Documentation, Spar Machine Operator Documentation, Spar Machine Operator Documentation, Wound CTR-follow up, WCC, Wound CTR-follow up, Wound CTR-follow up, labs, D/C planning, bailey smetatarsal amputation of right foot, LAB, LAB, Wound CTR-NEW Insurance Providers [facility] Member Patient Patient Patient Patient Patient Subscriber Subscriber Subscriber Group Insurance Plan Plan Plan Plan ID Relationship Address Phone Name Date of ID Name Date of No Type Insurance Insurance Insurance Coverage to Subscriber Address Phone Name Dates S-BLUE [phone] S-BLUE [place] [id number] [place] [address] [place] [address] [address] SELF PAY self [place] [id number] AFTER BLUE [place] AFTER BLUE [facility] [address] [employer] OTHER [address] [place] [address] [id number] OTHER [place]REG[place] [id number] [place] 1^MAIN [employer] [place] [id number] MEDICARE 3000 [employer]FF[employer] MEDICARE self G[place] [id number] 1 [id number] [facility] [id number]
--- OUTSIDE RECORDS SUMMARY | 2022-02-18 08:11 | XMS_ITS | Encounter Summary ---
:1945 Author Organization [facility] Address [facility] [place] [address] Care Team Providers Name Role Phone Lovely Vicente MD Primary Care Provider Reason for Visit Auth/Cert Specialty Diagnoses / Procedures Referred By Contact Refer red To Contact Diagnoses ASCVD (arteriosclerotic cardiovascular disease) [I25.10] Vitaliy Nobles MD [facility] SERV[facility] ARE[facility] Procedures PRO PERC TRLUML CORONARY STENT W/ANGIO ONE ART/BRANCH CARDIAC CATHETERIZATION STENT PLACEMENT-SINGLE MAJOR CORONARY ARTERY OR BRANCH 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 Please follow up with your low pressure boiler operator in the next 4-6 weeks. We have made a referral to cardiac rehab. Please see the attached instructions regarding care to your right wrist access site. AttachmentsThe following attachments cannot be sent through Care Everywhere. Coronary Angiogram: Post-op (Swedish)documented in this encounter Medications at Time of [...] Murray RN - 01/30/2022 4:54 PM EDT [facility] Short Stay Unit Discharge Note All [...] recent PCI presenting for staged PCI to [facility]. The pt states he has been [...] recent PCI presenting for staged PCI to [facility]. 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 I had referred him to cardiac rehab at [facility] last month per HF team. He was waiting until this intervention before starting the program. Reviewed managing angina /use of sl nitroglycerin. Given parameters for home exercise. 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 We discussed short walks several times per day. Will send [facility] his discharge summary from this admission. The patient should be contacted by the Program within 1- 2 weeks from discharge. Brief Op Note - Vitaliy Nobles MD - 01/30/2022 10:19 AM EDT Images from the original note were not included. [facility] [place] [address] CORONARY ANGIOGRAM AND PERCUTANEOUS CORONARY INTERVENTION REPORT Patient: Don Fatima : 1945 MR number: [id number] Date of Service: 01/30/2022 Deputy County Clerk: Vitaliy Nobles MD Fellow: AJ DeLago INDICATION: [...] a long 2.0 x 26 mm HARDEEP [place] TUCKER stent and positioned it at the [...] using a 2.0 x 26 mm HAR[place]EP [place] TUCKER stent. This completes the revascularization ofall [...] PA [facility] Cardiology Dept [place], [place] [address] (Wo rk) 03/26/2022 Office Visit Cardiology Vitaliy Nobles MD [facility] CARDIOLOGY [place], [place] [address] (Wo lissa) Scheduled Orders Name [...] P athologist Signature Neutrophils % 71.8 % [facility] LABORATORY Neutr Abs (ANC) 3.96 1.70 - [facility] 6.10 [facility] x10(3)/[facility] LABORATORY Lymphocytes % 16.3 % [facility] LABORATORY Lymphocytes Abs 0.9 0.9 - 3.2 [facility] x10(3)/[facility] LABORATORY Monocytes % 10.0 % [facility] LABORATORY Monocyte Abs 0.6 0.3 - 0.9 [facility] x10(3)/[facility] LABORATORY Eosinophils % 0.5 % [facility] LABORATORY Eosinophils Abs 0.0 0.0 - 0.4 [facility] x10(3)/[facility] LABORATORY Basophils % 0.5 % [facility] LABORATORY Basophils Abs 0.0 0.0 - 0.1 [facility] x10(3)/[facility] LABORATORY Immature Gran % 0.90 % [facility] LABORATORY Comment: Immature [...] Organization Address City/State/[place] [address] (ABNORMAL) Hemogram (01/30/2022 2:12 PM EDT) Analysis Performed At Patho logist Time Signature WBC 5.5 4.0 - 9.5 [facility] x10(3)/[facility] LABORATORY RBC 4.30 (L) 4.58 - [facility] 5.54 [facility] x10(6)/[facility] LABORATORY Hemoglobin 12.7 (L) 13.7 - [facility] 16.[facility] g/dL [facility] LABORATORY Hematocrit 39.4 (L) 40.5 - [facility] 48.5 % [facility] MCV 91.6 82.9 - [facility] 93.1 fL [facility] LABORATORY MCH 29.5 27.5 - [facility] 32.1 pg [facility] LABORATORY MCHC 32.2 32.0 - [facility] 35.7 g/dL [facility] LABORATORY Platelets 172 145 - 357 [facility] x10(3)/[facility] LABORATORY RDWSD 54.5 (H) 36.0 - [facility] 45.0 [facility] LABORATORY RDWCV 16.4 (H) 11.4 - [facility] 13.8 % [facility] LABORATORY MPV 9.2 7.6 - 12.9 [facility] LABORATORY nRBC % Auto 0.0 % [facility] LABORATORY nRBC Abs Auto 0.000 0.000 - [facility] 0.000 [facility] x10(3)/[facility] LABORATORY Specimen Anatomical Collection Method Collection Time Receive d Time (Source) Location / / Volume Laterality Blood 01/30/2022 2:12 PM 2 2:37 EDT PM EDT Resulting Agency Comment Spec In Lab Eddi Elizabeth Jr., MD HEMATOLOGY ORDERABLES Performing Organization Address City/State/ZIP Code Phon e Number [place] [phone] (ABNORMAL) Basic Metabolic Panel (non-fasting) (01/30/2022 2:12 PM EDT) P athologist Signature Glucose Lvl 163 65 - 199 [facility] mg/dL [facility] LABORATORY Comment: Diabetes: >=200 mg/dL plus symp toms BUN 30 (H) 10 - 20 mg/dL [facility] LABORATORY Creatinine 1.47 0.80 - 1.50 mg/dL [facility] LABORATORY Sodium 140 135 - 145 mmol/L [facility] LABORATORY Potassium 4.2 3.5 - 5.0 mmol/L [facility] [...] 15 mmol/L [facility] LABORATORY Calcium 9.2 8.5 - 10.5 mg/dL [facility] LABORATORY Estimated GFR 49 (L) >=60 mL/min/1.73 m?? [facility] LAB[facility] Comment: This patient's estimated [...] Address City/State/ZIP Code Phon e Number [address] POCT Glucose (01/30/2022 1:41 PM EDT) athologist Signature POC Glucose 148 65 - 199 [facility] mg/dL [facility] LABORATORY Comment: Supplemental ranges: <140 mg/dL before meals <180 mg/dL all other times of the day Specimen Anatomical Collection Method Collection Time Receive d Time (Source) Location / / Volume Laterality Blood 01/30/2022 1:41 PM 2 1:41 EDT PM EDT Vitaliy Nobles MD POINT OF CARE TEST ORDERABLE S Performing Organization Address City/State/ZIP Code Phon e Number [address] POCT Glucose (01/30/2022 10:48 AM EDT) athologist Signature POC Glucose 193 65 - 199 [facility] mg/dL [facility] LABORATORY Comment: Supplemental ranges: <140 [...] [address]/[place] [address] EKG 12 Lead (01/30/2022 10:33 AM EDT) Component Value Ref Range Test Analysis Performed Pathologis t Method Time At Signature Ventricular rate 64 BPM MUSE SYSTEM Atrial Rate 64 BPM MUSE SYSTEM P-R Interval 162 ms MUSE SYSTEM QRS Duration 94 ms MUSE SYSTEM Q-T Interval 422 ms MUSE SYSTEM QTC Calculated 435 ms MUSE SYSTEM (Bezet) Calculated P [place] 41 degrees MUSE SYSTEM Calculated R [place] -27 degrees MUSE SYSTEM Calculated T [place] 104 degrees MUSE SYSTEM INTERPRETATION Normal sinus rhythm MUSE SYSTEM Anterolateral infarct (cited on or before 09-DEC-2021) Abnormal ECG When compared with ECG of 10-DEC-2021 11:17, No significant change was found Confirmed by Gary Perez ([id number]) on 01/30/2022 5:57:5 2 PM Specimen Anatomical Collection Method Collection Time Receive d Time (Source) Location / / Volume Laterality 01/30/2022 10:33 01/30/2022 5:57 AM EDT PM EDT Vitaliy Sandra Nobles MD ECG ORDERABLES Performing Organization Address City/[facility] [address]/ZIP Code Phon e Number MUSE SYSTEM CARDIAC CATHETERIZATION (01/30/2022 10:16 AM EDT) Specimen (Source) Anatomical Location Collection Method / Collectio n Time Received Time / Laterality Volume Narrative CARDIOMAC SYSTEM - 01/30/2022 2:09 PM ED T ?[facility] ? Cardiac Cathete rization/Intervention Report ? Patient Name: Don Fatima. ? Procedure Date: 01/30/2022 ? A #: [id number] ? Primary Physician: Nobles, Vitaliy P ? Case #: [id number] ? File Name: [id number] ? Catheterization Order Number: [id number] ? [facility] ? Final Report [place], [place] ? Patient Name: ? Don E. Stewa rt ? ID#: ?[id number] ? : ?1945 ? Procedure Date: ? January 30, 2022 ? Case #: ? [id number] ? Room: ? 1 ? Case Physician: [...] kacie gnated as ASA Class III. The [facility] clinical ?frailty scale is 5: Mildly [...] was Urgent. The indication for ?the laborer tan house visit is stable kn own CAD. Chest [...] guiding catheter an d a 3.5 Fr [facility] [address] ??20 Mhz ?using Manual pullback. ??Imagin [...] A premounted 2.00 x 26 mm Hardeep [place] (TUCKER) ? was deployed wi th a [...] Wedelivered along 2.0 x 26 mm HARDEEP [place] ? TUCKER stent and p ositioned it [...] administered prior to arrival in the laborer tan house. ?Recommended anti-platelet/anti- thrombotic regimen: ?Continue aspirin 81 [...] ?modification of this regimen. C [facility] Interventional Cardiology for ?questions. ?The 1 year bleeding risk as nusrat culated by the PRECISE DAPT score is High ?risk. ?High Bleeding Risk - Anticoagul ation and DAPT: ?- ??Assess ischemic and bleedin g risks using validated risk predictors ?(e.g. CHADS2-VASC, HAS-BLED, [place] ECISE DAPT, DAPT Score) ?- ??Keep anticoagulant [...] using a 2.0 x 26 mm HARDEEP [place] TUCKER stent. ?This completes the revasculariz ation [...] linda gutiérrez for the entire procedure. ?Dr. Viatliy Nobles M.D. performed th e coronary angiography, left heart ?catheterization, bypass graft stud y, IVUS # coronary, stent ?insertion-coronary and peripheral intravascular ultrasound. ? Vitaliy P Nobles, M.D. ? Electronically Signed by: Vitaliy P Nobles, M .D. ? Report Finalized: 01/30/2022 ??14:02 ? Vitaliy Sandra Nobles MD CARDIAC CATH ORDERABLES Performing Organization Address City/[facility] [address]/ZIP Code Phon e Number CARDIOMAC SYSTEM (ABNORMAL) POCT Glucose (01/30/2022 9:04 AM EDT) P athologist Signature POC Glucose 212 (H) 65 - 199 [place] mg/dL [facility] LABORATORY Comment: Supplemental ranges: <140 mg/dL before meals <180 mg/dL all other times of the day Specimen Anatomical Collection Method Collection Time Receive d Time (Source) Location / / Volume Laterality Blood 01/30/2022 9:04 AM 2 9:04 EDT AM EDT Vitaliy Sandra Nobles MD POINT OF CARE TEST ORDERABLE S Performing Organization Address [facility] [address]/[facility] [place] [address] (ABNORMAL) POCT Glucose (01/30/2022 8:10 AM EDT) P athologist Signature POC Glucose 224 (H) 65 - 199 [place] mg/dL [facility] LABORATORY Comment: Supplemental ranges: <140 [...] [address]/[place] [address] documented in this encounter Visit Diagnoses Diagnosis ASCVD (arteriosclerotic cardiovascular d isease) Unspecified cardiovascular disease Atherosclerosis of [place] coronary arter [place] of [place] heart with angina pectoris with documented spasm ASHD (arteriosclerotic heart disease) Coronary atherosclerosis of unspecified type of vessel, [place] or graft ASCVD (arteriosclerotic cardiovascular d isease) Unspecified cardiovascular disease Chronic systolic heart failure documented in this encounter Admitting Diagnoses Diagnosis CAD (coronary artery disease) Coronary atherosclerosis of unspecified type of vessel, [place] or graft documented in this encounter Administered [...] Procedure), Routine niCARdipine (Cardene) (100 mcg/mL) dilution (RETAIL GREETER) (CANCELED ) 0927 (Given - Provider: Vitaliy [...] (Intra-Procedure) documented in this encounter Care Teams Rum Processing Operator Relationship Specialty Start Date End Date Lovely Vicente MD PCP - General 04/16/[address] [place] [address] documented as of this encounter
--- OUTSIDE RECORDS SUMMARY | 2022-02-18 08:11 | XMS_ITS | Encounter Summary ---
:1945 Author Organization [facility] [place] [address] Care Team Providers Name Role Phone Lovely Vicente MD Primary Care Provider Reason for Visit Auth/Cert Specialty Diagnoses / Procedures Referred By Contact Refer red To Contact Diagnoses ASCVD (arteriosclerotic cardiovascular disease) [I25.10] Vitaliy Nobles MD [facility] Procedures PRO PERC TRLUML CORONARY STENT W/ANGIO ONE ART/BRANCH CARDIAC CATHETERIZATION STENT PLACEMENT-SINGLE MAJOR CORONARY ARTERY OR BRANCH [facility] [place] [address] Referral ID Status Reason Start Date Expiration Date Visits Requ ested Visits Authorized [id number] 1 1 Encounter Details Date Type Department Care Team Description 01/30/2022 Laboratory Lab 3L Katalina ASCVD (arterios clerotic Appointment [facility] cardiovas cular disease) [place] [address] Social History Tobacco Use Types Packs/Day Years [...] 02/19/2022 Office Visit Cardiology Liz Poole PA [facility] Medical [facility] er Cardiology Dept [place], [place] [address] (Wo rk) 03/26/2022 Office Visit Cardiology Vitaliy Nobles MD [facility] CARDIOLOGY [place], [place] [...] (ABNORMAL) Differential, Automated (01/30/2022 7:19 AM EDT) [facility] gist Method Time Signature Neutrophils % 77.9 % [facility] LABORATORY Neutr Abs (ANC) 5.31 1.70 - [facility] 6.[address] [facility] x10(3)/[facility] LABORATORY Lymphocytes % 12.0 % [facility] LABORATORY Lymphocytes Abs 0.8 (L) 0.9 - 3.2 [facility] x10(3)/[facility] LABORATORY Monocytes % 8.1 % [facility] LABORATORY Monocyte Abs 0.6 0.3 - 0.9 [facility] x10(3)/[facility] LABORATORY Eosinophils % 0.4 % [facility] LABORATORY Eosinophils Abs 0.0 0.0 - 0.4 [facility] x10(3)/[facility] LABORATORY Basophils % 0.6 % [facility] LABORATORY Basophils Abs 0.0 0.0 - 0.1 [facility] x[facility](3[facility] LABORATORY Immature Gran % 1.00 % [facility] LABORATORY Comment: Immature granulocytes(IG's)percentage an d absolute count will include metamyelocytes, myelocytes, and promyelo cytes. Blood smears from CBCs yielding IG's will be scanned manually for concor dance. If this scan disagrees with the automated IG or if promyelocytes are not ed, a manual differential will be performed. Melisa Gran Abs 0.07 (H) 0.00 - 0.04 x10(3)/[facility] LABORATORY Specimen Anatomical Collection Method Collection Time Receive d Time (Source) Location / / Volume Laterality Blood 01/30/2022 7:19 AM 7:21 EDT AM EDT Resulting Agency Comment Spec In Lab Zulma BROWN HEMATOLOGY ORDERABLES Performing Organization Address City/State/ZIP [place] [address] (ABNORMAL) Hemogram (01/30/2022 7:19 AM EDT) Analysis Performed At Patho logist Time Signature WBC 6.8 4.0 - 9.5 [facility] x10(3)/[facility] LABORATORY RBC 4.32 (L) 4.58 - [place] [facility] [address] [facility] x10(6)/[facility] LABORATORY Hemoglobin 13.0 (L) 13.7 - [facility] 16.[facility] g/dL [facility] LABORATORY Hematocrit 39.8 (L) 40.5 - [facility] RYAN 48.5 % [facility] LABORATORY MCV 92.1 82.9 - [facility] 93.1 [facility] LABORATORY MCH 30.1 27.5 - [place] [facility] 32.1 pg [facility] LABORATORY MCHC 32.7 32.0 - [facility] RYAN 35.7 g/dL [facility] LABORATORY Platelets 172 145 - 357 [facility] x10(3)/[facility] LABORATORY RDWSD 54.5 (H) 36.0 - [place] [facility] 45.0 [facility] LABORATORY RDWCV 16.2 (H) 11.4 - [facility] RYAN 13.8 % [facility] LABORATORY MPV 9.0 7.6 - 12.9 [facility] LABORATORY nRBC % Auto 0.0 % [facility] LABORATORY nRBC Abs Auto 0.000 0.000 - [facility] 0.[address] [facility] x10(3)/[facility] LABORATORY Specimen Anatomical Collection Method Collection Time Receive d Time (Source) Location / / Volume Laterality Blood 01/30/2022 7:19 AM 7:21 EDT AM EDT Resulting Agency Comment Spec In Lab Zulma BROWN HEMATOLOGY ORDERABLES Performing Organization Address City/State/ZIP [place] [address] (ABNORMAL) Basic Metabolic Panel (non-fasting) (01/30/2022 7:19 AM EDT) P athologist Signature Glucose Lvl 237 (H) 65 - 199 [facility] mg/dL [facility] LABORATORY Comment: Diabetes: >=200 mg/dL plus symp toms BUN 34 (H) 10 - 20 mg/dL [facility] LABORATORY Creatinine 1.45 0.80 - 1.50 mg/dL [facility] LABORATORY Sodium 141 135 - 145 [...] - 107 mmol/L [facility] LABORATORY CO2 30 22 - 31 mmol/L [facility]OR[facility] Anion Gap 11 5 - 15 mmol/L [facility] LABORATORY Calcium 9.5 8.5 - 10.5 mg/dL [facility] LABORATORY Estimated GFR 50 (L) >=60 mL/min/1.73 m?? [facility] LABORATORY Comment: This patient's estimated GFR [...] Organization Address City/State/ZIP Code Phon e Number [place] [phone] documented in this encounter Visit Diagnoses Diagnosis ASCVD (arteriosclerotic cardiovascular d isease) Unspecified cardiovascular disease Chronic systolic heart failure documented in this encounter Care Teams Windows Admin Relationship Specialty Start Date End Date Lovely Vicente MD PCP - General 04/16/[address] [place] [address] documented as of this encounter
--- OUTSIDE RECORDS SUMMARY | 2022-02-18 08:11 | XMS_ITS | Encounter Summary ---
:1945 [place] [address] Care Team Providers Name Role Phone Lovely Vicente MD Primary Care Provider Encounter Details Date Type Department Care Team Description 01/28/2022 Orders Only Windows Deployment Technician Zulma Finch ASCVD (art eriosclerotic [facility] cardiovascular disease) [facility] [place] [address] [place], [place] [phone] (Work) [phone] Social History Tobacco Use Types Packs/Day Years [...] [facility] er Cardiology Dept [place], [place] [address] (Wo rk) 03/26/2022 Office Visit Cardiology Vitaliy Nobles MD [facility] ER [address] [place], [place] [address] (Wo rk) documented as of this encounter Results (ABNORMAL) Basic Metabolic Panel (non-fasting) (01/30/2022 7:19 AM EDT) athologist Signature Glucose Lvl 237 (H) 65 - 199 [facility] mg/dL [facility] LABORATORY Comment: Diabetes: >=200 mg/dL plus symp toms BUN 34 (H) 10 - 20 mg/dL [facility] LABORATORY Creatinine 1.45 0.80 - 1.50 mg/dL [facility] [...] 107 mmol/L [facility] LABORATORY CO2 30 22 - 31 mmol/L [facility] LABOR[facility] Anion Gap 11 5 - 15 mmol/L [facility] LABORATORY Calcium 9.5 8.5 - 10.5 mg/dL [facility] LABORATORY Estimated GFR 50 (L) >=60 mL/min/1.73 m?? [facility] Comment: This patient's estimated GFR [...] Organization Address City/State/ZIP Code Phon e Number [place] [phone] documented in this encounter Visit Diagnoses Diagnosis ASCVD (arteriosclerotic cardiovascular d isease) Unspecified cardiovascular disease Chronic systolic heart failure documented in this encounter Care Teams Administrative Operations Coordinator Relationship Specialty Start Date End Date Lovely Vicente MD PCP - General 04/16/[address] [place] [address] documented as of this encounter
--- OUTSIDE RECORDS SUMMARY | 2022-02-18 08:11 | XMS_ITS | Encounter Summary ---
:1945 Author Organization [facility] Address [facility] [place] [address] Care Team Providers Name Role Phone Lovely Vicente MD Primary Care Provider Reason for Visit Auth/Cert Specialty Diagnoses / Procedures Referred By Contact Refer red To Contact Diagnoses ASCVD (arteriosclerotic cardiovascular disease) [I25.10] Vitaliy Nobles MD [facility] Procedures PRO PERC TRLUML CORONARY STENT W/ANGIO ONE ART/BRANCH CARDIAC CATHETERIZATION STENT PLACEMENT-SINGLE MAJOR CORONARY ARTERY OR BRANCH [facility] [place] [address] Referral ID Status Reason Start Date Expiration Date Visits Requ ested Visits Authorized [id number] 1 1 Encounter Details Date Type Department Care Team Description 01/30/2022 Surgery Computed Tomography Scanner Operator Asa Coulter MD CARDIAC CATHETERIZATION [facility] [place] [address] [place] [address] [phone] (Wo rk) Social History Tobacco Use Types [...] and Clopidogrel. Please follow up with your internet project manager in the next 4-6 weeks. We have made a referral to cardiac rehab. Please see the attached instructions regarding care to your right wrist access site. AttachmentsThe following attachments cannot be sent through Care Everywhere. Coronary Angiogram: Post-op (Kinyarwanda)documented in this encounter Medications at Time of [...] Murray RN - 01/30/2022 4:54 PM EDT [facility] Short Stay Unit Discharge Note All [...] recent PCI presenting for staged PCI to [facility]. The pt states he has been ok. [...] recent PCI presenting for staged PCI to [facility]. The indications, expected benefits, and potential risks [...] SSU team Don has history of prior [place] and CABG. I had referred him to cardiac rehab at [facility] last month per HF team. He was waiting until this intervention before starting the program. Reviewed managing angina /use of sl nitroglycerin. Given parameters for home exercise. 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 We discussed short walks several times per day. Will send [facility] his discharge summary from this admission. The patient should be contacted by the Program within 1- 2 weeks from discharge. Brief Op Note - Vitaliy Nobles MD - 01/30/2022 10:19 AM EDT Images from the original note were not included. [facility] [place] [address] [place] [address] CORONARY ANGIOGRAM AND PERCUTANEOUS CORONARY INTERVENTION REPORT Patient: Don Mccollum Kushal : 1945 MR number: [id number] Date of Service: 01/30/2022 Slitter Creaser Slotter Helper: Vitaliy Nobles MD Fellow: KEYON Elizabeth INDICATION: [...] a long 2.0 x 26 mm HARDEEP [place] TUCKER stent and positioned it at the [...] using a 2.0 x 26 mm HARDEEP [place] TUCKER stent. This completes the revascularization ofall [...] Liz Poole PA [facility] Cardiology Dept [place], [place] [address] (Wo lissa) 03/26/2022 Office Visit Cardiology Vitaliy Nobles MD [facility] CARDIOLOGY [place], [place] [address] (Mikayla alcaraz) Scheduled Orders Name [...] EDT) athologist Signature Neutrophils % 71.8 % [facility] LABORATORY Neutr Abs (ANC) 3.96 1.70 - [facility] 6.10 [facility] x10(3)/[facility] LABORATORY Lymphocytes % 16.3 % [facility] Lymphocytes Abs 0.9 0.9 - 3.2 [facility] x10(3)/[facility] LABORATORY Monocytes % 10.0 % [facility] Monocyte Abs 0.6 0.3 - 0.9 [facility] x10(3)/[facility] LABORATORY Eosinophils % 0.5 % [facility] Eosinophils Abs 0.0 0.0 - 0.4 [facility] x10(3)/[facility] LABORATORY Basophils % 0.5 % [facility] Basophils Abs 0.0 0.0 - 0.1 [facility] x10(3)/[facility] LABORATORY Immature Gran % 0.90 % [facility] Comment: Immature granulocytes(IG's)percentage an d absolute count will include metamyelocytes, myelocytes, and promyelo cytes. Blood smears from CBCs yielding IG's will be scanned manually for concor dance. If this scan disagrees with the automated IG or if promyelocytes are not ed, a manual differential will be performed. Melisa Gran Abs 0.05 (H) 0.00 - 0.04 x10(3)/[facility] LABORATORY Specimen Anatomical Collection Method Collection Time Receive d Time (Source) Location / / Volume Laterality Blood 01/30/2022 2:12 PM 2:37 EDT PM EDT Resulting Agency Comment Spec In Lab Eddi Elizabeth Jr., MD HEMATOLOGY ORDERABLES Performing Organization Address City/State/[place] [address] (ABNORMAL) Hemogram (01/30/2022 2:12 PM EDT) Analysis Performed At Patho logist Time Signature WBC 5.5 4.0 - 9.5 [facility] x10(3)/[facility] LABORATORY RBC 4.30 (L) 4.58 - [facility] 5.54 [facility] x10(6)/[facility] LABORATORY Hemoglobin 12.7 (L) 13.7 - [facility] 16.5 g/dL [facility] LABORATORY Hematocrit 39.4 (L) 40.5 - [facility] 48.5 % [facility]OR[facility]ORY MCV 91.6 82.9 - [facility] 93.1 fL [facility] MCH 29.5 27.5 - [facility] 32.1 pg [facility] LABORATORY MCHC 32.2 32.0 - [facility] 35.7 g/dL [facility] LABORATORY Platelets 172 145 - 357 [facility] x10(3)/[facility] LABORATORY RDWSD 54.5 (H) 36.0 - [facility] 45.0 [facility] LABORATORY RDWCV 16.4 (H) 11.4 - [facility] 13.8 % [facility] LABORATORY MPV 9.2 7.6 - 12.9 [facility] LABORATORY nRBC % Auto 0.0 % [facility] LABORATORY nRBC Abs Auto 0.000 0.000 - [facility] 0.000 [facility] x10(3)/[facility] LABORATORY Specimen Anatomical Collection Method Collection Time Receive d Time (Source) Location / / Volume Laterality Blood 01/30/2022 2:12 PM 2:37 EDT PM EDT Resulting Agency Comment Spec In Lab Eddi Elizabeth Jr., MD HEMATOLOGY ORDERABLES Performing Organization Address City/State/[place] [address] (ABNORMAL) Basic Metabolic Panel (non-fasting) (01/30/2022 2:12 PM EDT) athologist Signature Glucose Lvl 163 65 - 199 [facility] mg/dL [facility] LABORATORY Comment: Diabetes: >=200 mg/dL plus symp toms BUN 30 (H) 10 - 20 mg/dL [facility] LABORATORY Creatinine 1.47 0.80 - 1.50 mg/dL [facility] LABORATORY Sodium 140 135 - 145 mmol/L [facility] LAB[facility] Potassium 4.2 3.5 - 5.0 mmol/L [facility] Comment: Please note: ??Patients with WBC >100,00 0 may have falsely elevated Potassium levels. ??For accurate Potassium quantif ication in these patients send serum separator tube (gold top) for subsequent determinations. ??Contact the Clinical Chemistry Laboratory if there are any qu estions. Chloride 101 98 - 107 mmol/L [facility] LABOR[facility]ORY CO2 28 22 - 31 mmol/L [facility] LAB[facility]ORY Anion Gap 11 5 - 15 mmol/L [facility] LABORATORY Calcium 9.2 8.5 - 10.5 mg/dL [facility] LABOR[facility]ORY Estimated GFR 49 (L) [...] Nobles MD CHEMISTRY ORDERABLES Performing Organization Address City/[facility]/ZIP Code Phon e Number [address] POCT Glucose (01/30/2022 1:41 PM EDT) athologist Signature POC Glucose 148 65 - 199 [facility] mg/dL [facility] LABORATORY Comment: Supplemental ranges: <140 mg/dL before meals <180 mg/dL all other times of the day Specimen Anatomical Collection Method Collection Time Receive d Time (Source) Location / / Volume Laterality Blood 01/30/2022 1:41 PM 2 1:41 EDT PM EDT Vitaliy Nobles MD POINT OF CARE TEST ORDERABLE S Performing Organization Address City/State/[place] [address] POCT Glucose (01/30/2022 10:48 AM EDT) athologist Signature POC Glucose 193 65 - 199 [facility] mg/dL [facility] LABORATORY Comment: Supplemental ranges: <140 mg/dL before meals <180 mg/dL all other times of the day Specimen Anatomical Collection Method Collection Time Receive d Time (Source) Location / / Volume Laterality Blood 01/30/2022 10:48 01/30/2022 AM EDT 10:48 AM EDT Vitaliy Sandra Nobles MD POINT OF CARE TEST ORDERABLE S Performing Organization Address City/State/[place] [address] EKG 12 Lead (01/30/2022 10:33 AM EDT) Component Value Ref Range Test Analysis Performed Pathologis t Method Time At Signature Ventricular rate 64 BPM MUSE SYSTEM Atrial Rate 64 BPM MUSE SYSTEM P-R Interval 162 ms MUSE SYSTEM QRS Duration 94 ms MUSE SYSTEM Q-T Interval 422 ms MUSE SYSTEM QTC Calculated 435 ms MUSE SYSTEM (Bezet) Calculated P [place] 41 degrees MUSE SYSTEM Calculated R [place] -27 degrees MUSE SYSTEM Calculated T [place] 104 degrees MUSE SYSTEM INTERPRETATION Normal sinus rhythm MUSE SYSTEM Anterolateral infarct (cited on or before 09-DEC-2021) Abnormal ECG When compared with ECG of 10-DEC-2021 11:17, No significant change was found Confirmed by Gary Perez ([id number]) on 01/30/2022 5:57:5 2 PM Specimen Anatomical Collection Method Collection Time Receive d Time (Source) Location / / Volume Laterality 01/30/2022 10:33 01/30/2022 5:57 AM EDT PM EDT Vitalyi Sandra Nobles MD ECG ORDERABLES Performing Organization Address City/[facility]/ZIP Code Phon e Number MUSE SYSTEM CARDIAC CATHETERIZATION (01/30/2022 10:16 AM EDT) Specimen (Source) Anatomical Location Collection Method / Collectio n Time Received Time / Laterality Volume Narrative CARDIOMAC SYSTEM - 01/30/2022 2:09 PM ED T ?[facility] ? Cardiac Cathete rization/Intervention Report ? Patient Name: Don Fatima Veda. ? Procedure Date: 01/30/2022 ? A #: [id number] ? Primary Physician: Nobles, Vitaliy P ? Case #: [id number] ? File Name: [id number] ? Catheterization Order Number: [id number] ? [facility] ? Final Report [place], [place] ? Patient Name: ? Don E. Stewa rt ? ID#: ?[id number] ? : ?1945 ? Procedure Date: ? January 30, 2022 ? Case #: ? [id number] ? Room: ? 1 ? Case Physician: [...] was Urgent. The indication for ?the laboratory manager visit is stable kn own CAD. Chest [...] guiding catheter an d a 3.[address] [place] [address] ??20 Mhz ?using Manual pullback. ??Imagin [...] A premounted 2.00 x 26 mm Hardeep [place] (TUCKER) ? was deployed wi th a [...] Wedelivered along 2.0 x 26 mm HARDEEP [place] ? TUCKER stent and p ositioned it [...] dose administered prior to arrival in the laboratory manager. ?Recommended anti-platelet/anti- thrombotic regimen: ?Continue aspirin 81 [...] require ?modification of this regimen. C onsult [facility] Interventional Cardiology for ?questions. ?The 1 year bleeding risk as nusrat culated by the PRECISE DAPT score is High ?risk. ?High Bleeding Risk - Anticoagul ation and DAPT: ?- ??Assess ischemic and bleedin g risks using validated risk predictors ?(e.g. CHADS2-VASC, HAS-BLED, ME ECISE DAPT, DAPT Score) ?- ??Keep anticoagulant [...] using a 2.0 x 26 mm HARDEEP [place] TUCKER stent. ?This completes the revasculariz ation [...] POC Glucose 212 (H) 65 - 199 [facility] mg/dL [facility] Comment: Supplemental ranges: <140 mg/dL before meals <180 mg/dL all other times of the day Specimen Anatomical Collection Method Collection Time Receive d Time (Source) Location / / Volume Laterality Blood 01/30/2022 9:04 AM 2 9:04 EDT AM EDT Vitaliy Nobles MD POINT OF CARE TEST ORDERABLE S Performing Organization Address [facility]/[place] [address] (ABNORMAL) POCT Glucose (01/30/2022 8:10 AM EDT) P athologist Signature POC Glucose 224 (H) 65 - 199 [facility] mg/dL [facility] LAB[facility]ORY Comment: Supplemental ranges: <140 mg/dL before meals <180 mg/dL all other times of the day Specimen Anatomical Collection Method Collection Time Receive d Time (Source) Location / / Volume Laterality Blood 01/30/2022 8:10 AM 2 8:10 EDT AM EDT Vtialiy Nobles MD POINT OF CARE TEST ORDERABLE S Performing Organization Address [facility]/[place] [address] documented in this encounter Visit Diagnoses Diagnosis ASCVD (arteriosclerotic cardiovascular d isease) Unspecified cardiovascular disease 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 ASHD (arteriosclerotic heart disease) Coronary atherosclerosis of unspecified type of vessel, [place] or graft ASCVD (arteriosclerotic cardiovascular d isease) Unspecified cardiovascular disease Chronic systolic heart failure documented in this encounter Admitting Diagnoses Diagnosis CAD (coronary artery disease) Coronary atherosclerosis of unspecified type of vessel, [place] or graft documented in this encounter Administered [...] 1039, Until Wed at 1045, MADDISON FARMER: semajt override clopidogreL (Plavix) tablet 600 mg Given [...] Given 02/2022 10:11 AM EDT 100 mcg (COMMERCIAL INTELLIGENCE MANAGER) ONCE PRN, Starting on Wed01/30/22 at 0927, [...] Procedure), Routine niCARdipine (Cardene) (100 mcg/mL) dilution (COMMERCIAL INTELLIGENCE MANAGER) (CANCELED ) 0927 (Given - Provider: Vitaliy [...] (Intra-Procedure) documented in this encounter Care Teams Ror Engineer Relationship Specialty Start Date End Date Lovely Vicente MD PCP - General 04/16/[address] [place] [address] [address] [place] [address] documented as of this encounter
--- OUTSIDE RECORDS SUMMARY | 2022-02-18 08:11 | XMS_ITS | Clinical Summary ---
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; ASHD (arteriosc lerotic heart disease) 01/28/2022 Orders Only Cardiology JEMIMA Gannon PA (arteriosclerot ic cardiovascular disease) 01/28/2022 Telephone Cardiology Chitra Angela Advice Only VAMSI Gomes 12/30/2021 Notes Only Cardiology Rebeka Deluca RN 12/25/2021 Office Visit Cardiology Virgilio, Chronic systoli c heart STEPHANIE Hill failure 12/25/2021 Laboratory Lab Chronic systoli c heart Appointment failure 12/24/2021 Telephone [facility] Dayami Buckner 12/24/2021 Orders Only Cardiology JEMIMA [...] PA [facility] Cardiology Dept [place], [place] [address] (Wo rk) 03/26/2022 Office Visit Cardiology Vitaliy Nobles MD [facility] CARDIOLOGY [place], [place] [address] (Wo rk) Health Maintenance Due Date Last Done Comments Covid-19 Vaccine (#1) 1950 Pneumoccocal Vaccine: 65+ (1 - PCV) 1952 Hepatitis C Screening 1964 Tdap adult 1965 Tetanus vaccine 1965 Zoster vaccine (1 of 2) 1996 AAA Screen 2011 Colonoscopy 01/16/2019 01/16/2014, 01/16/2014 Influenza (Flu) vaccine (1 of 1 - 03/26/2022 03/29/2013, Influenza standard series) Medical Devices 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 x10(3)/[facility] LABORATORY RBC 4.30 (L) 4.58 - [facility] 5.54 [facility] x10(6)/[facility] LABORATORY Hemoglobin 12.7 (L) 13.7 - [facility] 16.5 g/dL [facility] LABORATORY Hematocrit 39.4 (L) 40.5 - [facility] 48.5 % [facility] LABORATORY MCV 91.6 82.9 - [facility] 93.1 [facility] LABORATORY MCH 29.5 27.5 - [facility] 32.1 pg [facility] LABORATORY MCHC 32.2 32.0 - [facility] 35.7 g/dL [facility] LABORATORY Platelets 172 145 - [address] [facility] x10(3)/[facility] LABORATORY RDWSD 54.5 (H) 36.0 - [facility] 45.0 [facility] LABORATORY RDWCV 16.4 (H) 11.4 - [facility] 13.8 % [facility] LABORATORY MPV 9.2 7.6 - 12.9 [facility] LABORATORY nRBC % Auto 0.0 % [facility] LABORATORY nRBC Abs Auto 0.000 0.000 - [facility] 0.000 [facility] x10(3)[facility] LABORATORY Specimen Anatomical Collection Method Collection Time Receive d Time (Source) Location / / Volume Laterality Blood 01/30/2022 2:12 PM 2 2:37 EDT PM EDT Resulting Agency Comment Spec In Lab Eddi Elizabeth Jr., MD HEMATOLOGY ORDERABLES Performing Organization Address City/State/[place] [address] (ABNORMAL) Differential, Automated (01/30/2022 2:12 PM EDT)Only the most recent of8 resultswithin the time period is included. athologist Signature Neutrophils % 71.8 % [facility] LABORATORY Neutr Abs (ANC) 3.96 1.70 - [facility] 6.10 [facility] x10(3)/[facility] LABORATORY Lymphocytes % 16.3 % [facility] LABORATORY Lymphocytes Abs 0.9 0.9 - 3.[address] [facility] x10(3)/[facility] LABORATORY Monocytes % 10.0 % [facility] LABORATORY Monocyte Abs 0.6 0.3 - 0.[address] [facility] x10(3)/[facility] LABORATORY Eosinophils % 0.5 % [facility] LABORATORY Eosinophils Abs 0.0 0.0 - 0.[address] [facility] x10(3)/[facility] LABORATORY Basophils % 0.5 % [facility] LABORATORY Basophils Abs 0.0 0.0 - 0.[address] [facility] x10(3)/[facility] LABORATORY Immature Gran % 0.90 % [facility] [...] Gran Abs 0.05 (H) 0.00 - 0.04 x10(3)/[facility] LABORATORY Specimen Anatomical Collection Method Collection Time Receive d Time (Source) Location / / Volume Laterality Blood 01/30/2022 2:12 PM 2 2:37 EDT PM EDT Resulting Agency Comment Spec In Lab Eddi Elizabeth Jr., MD HEMATOLOGY ORDERABLES Performing Organization Address City/State/[place] [address] (ABNORMAL) Basic Metabolic Panel (non-fasting) (01/30/2022 2:12 PM EDT)Only the most recent of6 resultswithin the time period is included. P athologist Signature Glucose Lvl 163 65 - [address] [facility] mg/dL [facility] LABORATORY Comment: Diabetes: >=200 mg/dL plus symp toms BUN 30 (H) 10 - 20 mg/dL [facility] LABORATORY Creatinine 1.47 0.80 - 1.50 mg/dL [facility] LABORATORY Sodium 140 135 - 145 mmol/L [facility] LABORATORY Potassium 4.2 3.5 - 5.0 mmol/L [facility] LABORATORY Calcium 9.2 8.5 - 10.5 mg/dL [facility] LABORATORY Estimated GFR 49 (L) >=60 [...] Organization Address City/State/[place] [address] POCT Glucose (01/30/2022 1:41 PM EDT)Only the most recent of36 resultswithin the time period is included. athologist Signature POC Glucose 148 65 - [address] [facility] mg/dL [facility] LABORATORY Comment: Supplemental ranges: <140 mg/dL before meals <180 mg/dL all other times of the day Specimen Anatomical Collection Method Collection Time Receive d Time (Source) Location / / Volume Laterality Blood 01/30/2022 1:41 PM 2 1:41 EDT PM EDT Vitaliy Sandra Nobles MD POINT OF CARE TEST ORDERABLE S Performing Organization Address City/State/[place] [address] EKG 12 Lead (01/30/2022 [...] 435 ms MUSE SYSTEM (Bezet) Calculated P [place] 41 degrees MUSE SYSTEM Calculated R [place] -27 degrees MUSE SYSTEM Calculated T [place] 104 degrees MUSE SYSTEM INTERPRETATION Normal sinus rhythm MUSE SYSTEM Anterolateral infarct (cited on or before 09-DEC-2021) Abnormal ECG When compared with ECG of 10-DEC-2021 11:17, No significant change was found Confirmed by Gary Perez ([id number]) on 01/30/2022 5:57:5 2 PM Specimen Anatomical [...] SYSTEM - 01/30/2022 2:09 PM ED T ?[facility] ? Cardiac Cathete rization/Intervention Report ? Patient Name: Kushal, Don E. ? Procedure Date: 01/30/2022 ? A #: [id number] ? Primary Physician: Nobles, Vitaliy P ? Case #: [id number] ? File Name: [id number] ? Catheterization Order Number: [id number] ? [facility] ? Final Report [place], [place] ? Patient Name: ? Don E. Stewa rt ? ID#: ?[id number] ? : ?1945 ? Procedure Date: ? [...] was Urgent. The indication for ?the [employer] visit is stable kn own CAD. Chest [...] guiding catheter an d a 3.5 Fr [facility] [address] ??20 Mhz ?using Manual pullback. ??Imagin [...] ?? A premounted 2.00 x 26 mm Stratford Trego (TUCKER) ? was deployed wi a maximum [...] Wedelivered along 2.0 x 26 mm ORION Trego ? 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 ?Recommended anti-platelet/anti- thrombotic regimen: ?Continue aspirin 81 [...] require ?modification of this regimen. C onsult [facility] Interventional Cardiology for ?questions. ?The 1 year bleeding risk as nusrat culated by the PRECISE DAPT score is High ?risk. ?High Bleeding Risk - Anticoagul ation and DAPT: ?- ??Assess ischemic and bleedin g risks using validated risk predictors ?(e.g. CHADS2-VASC, HAS-BLED, ND ECISE DAPT, DAPT Score) ?- ??Keep anticoagulant [...] using a 2.0 x 26 mm ORION Trego TUCKER stent. ?This completes the revasculariz ation [...] P athologist Signature ProBNP 1,380 (H) <=124 [facility] pg/mL [facility] LABORATORY Specimen Anatomical Collection Method Collection Time Receive d Time (Source) Location / / Volume Laterality Blood 12/25/2021 7:46 AM 8:01 EDT AM EDT Resulting Agency Comment Spec In Lab Zulam Plunkett MD CHEMISTRY ORDERABLES Performing Organization Address City/[facility] [place] [address] SCAN DOC: TELEMETRY STRIPS [...] Signature Glucose 152 (H) 65 - [address] [facility] Fasting mg/dL [facility] LABORATORY Comment: ?Fasting* Glucose Interpretive C riteria [...] of Diabetes Mellitus, Position Statement from the [place] Diabetes Association. ??Diabete s Care, Volume 33, Supplement 1, Jul 2009 BUN 52 (H) 10 - 20 mg/dL [facility] LABORATORY Creatinine 1.72 (H) 0.80 - 1.50 mg/dL [facility] LABORATORY Sodium 143 135 - 145 mmol/L [facility] LABORATORY Potassium 3.9 3.5 - 5.0 mmol/L [facility] LABORATORY Calcium 8.9 8.5 - 10.5 mg/dL [facility] LABORATORY Estimated GFR 38 (L) >=60 [...] Cuevas MD CHEMISTRY ORDERABLES Performing Organization Address [facility] [place] [address] (ABNORMAL) Prothrombin Time (12/12/2021 4:51 AM EDT)Only the most recent of4 resultswithin the time period is included. P athologist Signature PT 14.9 (H) 9.4 - 12.5 [facility] LABORATORY INR 1.3 [facility] [...] Cuevas MD HEMATOLOGY ORDERABLES Performing Organization Address [facility] [place] [address] Magnesium (12/12/2021 4:51 AM EDT)Only the most recent of5 resultswithin the time period is included. P athologist Signature Magnesium 1.02 0.69 - 1.[address] [facility] mmol/L [facility] LABORATORY Specimen Anatomical Collection Method Collection Time Receive d Time (Source) Location / / Volume Laterality Blood 12/12/2021 4:51 AM 5:06 EDT AM EDT Resulting Agency Comment Spec In Lab Iker Cuevas MD CHEMISTRY ORDERABLES Performing Organization Address City/State/[place] [address] COVID-19 PCR (12/11/2021 10:13 AM EDT) Patholo gist Method Time Signature SARS-CoV-2 Not Detected Not Detected BARBARA RNA [facility] LABORATORY Comment: This result should [...] diagnosis of COVID-19 is performed using the Sharypicni[employer] RONNA S-CoV-2 Assay as authorized by the FDA Emergency Use Authorization (EUA). This EUA assay is intended for In-vitro Diagnostic (IVD) use with respiratory sp ecimens such as nasopharyngeal swabs collected from individuals during the ac yavapai-apache phase of infection. This assay is performed based on the instructions for use provided by [employer] and additional guidance provided by CDC and FDA. Testing is performed in the Clinical Genomics and Advanced Technolog y Laboratory within the Department of Pathology and Laboratory Medicine at [facility], certified under the Clinical Laboratory Improvement Amendments [...] clinical management guidance information are available at [facility] CDC Coronavirus Disease 2019 (COVID-19) webpage under Information fo r Healthcare Professionals (https://www.cdc.gov/coronavirus/2019-nc ov/hcp/index.html) Additional information about this and ot her EUA tests can be found in provider and patient fact sheets at the following FDA website: https://www.fda.gov/medical-devices/lclifgsbdrm-kysnfgc-3130-flgta-23-uhxjxbyiy- wvz-ecgsdklfvxcmsy-egersuu-devices/fltsz-kxwrqrdcofg-snrn SARS-Cov-2 RNA Source CHIEF PRIVACY OFFICER Swab [facility] LABORATORY Specimen (Source) Anatomical Collection Method Collection Time Re ceived Time Location / / Volume Laterality Nasopharyngeal Swab 12/11/2021 10:13 11/23 AM EDT 11:16 AM EDT Comment: Symptoms->Surveillance Resulting Agency Comment Spec In Lab Iker Cuevas MD MICROBIOLOGY - GENERAL ORDER [place] Performing Organization Address City/State/[place] [address] Potassium (12/10/2021 7:46 PM EDT) athologist Signature Potassium 4.2 3.5 - 5.[address] [facility] mmol/L [facility] LABORATORY Comment: Please note: ??Patients with WBC [...] Cuevas MD CHEMISTRY ORDERABLES Performing Organization Address City/[facility] [place] [address] (ABNORMAL) Point of Care Blood Gas Historical (12/10/2021 9:04 AM EDT) [facility] Method Time Signature POC pH 7.40 7.35 - [facility] 7.45 [facility] LABORATORY POC PCO2 40 35 - [address] [facility] mmHg [facility] LABORATORY POC PO2 63 (L) 85 - 104 [facility] LABORATORY POC Base Excess 0.0 -3.0 - 3.0 [facility] K mmol/L [facility] LABORATORY POC HCO3 24.8 20.0 - [facility] 26.0 [facility] mmol/[facility] LABORATORY POC Sodium 143 135 - [address] [facility] mmol/L [facility] LABORATORY POC Potassium 3.7 3.5 - 5.[address] [facility] mmol/L [facility] LABORATORY POC Ionized Ca 1.07 (L) 1.15 - [facility] 1.33 [facility] mmol/[facility] LABORATORY POC Hematocrit 30.0 (L) 40.0 - [facility] 51.0 % [facility] LABORATORY POC Calc Hgb 10.2 (L) 13.7 - [facility] 17.5 g/dL [facility] LABORATORY Comment: The calculation of hemoglobin f rom hematocrit assumes a normal MCHC. POC Bgas Loc CC LAB [facility] LABORATORY Specimen Anatomical Collection Method Collection Time Receive d Time (Source) Location / / Volume Laterality Blood 12/10/2021 9:04 AM 2 EDT 12:00 PM EDT Ifeanyi Truong MD CHEMISTRY ORDERABLES Performing Organization Address City/State/ZIP Code Phon e Number [place] [id number]OS[address] LAB[address] Heparin (unfractionated) Level (12/10/2021 4:25 AM EDT)Only the most recent of5 resultswithin the time period is included. athologist Signature Heparin UFH 0.69 IU/mL [facility] LABORATORY Comment: Heparin (anti-Xa) levels should be [...] Address City/State/[place] [address] (ABNORMAL) Troponin (12/09/2021 6:18 AM EDT)Only the most recent of3 results within the time period is included. athologist [facility] Troponin-T 1.13 (H) 0.00 - [facility] 0.00 ng/mL [facility] LABORATORY Comment: The 99th percentile for Troponin T is le ss than 0.01 ng/mL, any detectable cTnT concentration using this assay should be considered elevated. According to the third universal definit ion of myocardial infarction the following criteria with a clinical prese ntation consistent with acute myocardial ischemia meets the diagnosis for a myocardial infarction (CO). Detection of a rise and/or fall of [...] additional sample may be indicated. Reference: Third [place] Definition of Myocardial Infarction. Journal of the [place] College of Cardiology 2012;60:1581-98 Specimen Anatomical Collection Method Collection Time Receive d Time (Source) Location / / Volume Laterality Blood 12/09/2021 6:18 AM 2 6:33 EDT AM EDT Resulting Agency Comment Spec In Lab Iker Cuevas MD CHEMISTRY ORDERABLES Performing Organization Address City/[facility]/[place] [address] TSH (12/09/2021 6:18 AM EDT) P athologist Signature TSH 1.60 0.27 - 4.20 [facility] mcIU/mL [facility] LABORATORY Comment: Reference Interval (mcIU/mL): Females: ??First Trimester: 0.23-3.88 ??Second Trimester: 0.22-3.90 ??Third Trimester: 0.44-4.66 Specimen Anatomical Collection Method Collection Time Receive d Time (Source) Location / / Volume Laterality Blood 12/09/2021 6:18 AM 2 6:33 EDT AM EDT Resulting Agency Comment Spec In Lab Iker Cuevas MD CHEMISTRY ORDERABLES Performing Organization Address City/[facility]/[place] [address] (ABNORMAL) Hemoglobin A1c (12/09/2021 6:18 AM EDT) Analysis Performed At Patho logist Time Signature Hemoglobin A1C 7.4 (H) 4.3 - 5.6 [facility] LAB[facility]ORY Comment: Reference Range: 4.3 - [...] S67-74 Est Avg Gluc See note mg/dL [facility] [...] with hemoglobinopathies. Additional resources are available on [facility] ADA website. Macario HAMMOND, Ruthann J, Deysi R, et al. ??Tr anslating the A1C assay into estimated average glucose values. ??Diabetes Care 2008:31(8):3479-3499. Specimen Anatomical Collection Method Collection Time Receive d Time (Source) Location / / Volume Laterality Blood Venous Draw / 12/09/2021 6:18 AM 12/10/19 22 Unknown EDT 12:24 PM EDT Resulting Agency Comment Spec In Lab Migdalia BROWN CHEMISTRY ORDERABLES Performing Organization Address City/State/ZIP Code Phon e Number [address] Hepatic Function Panel (12/09/2021 6:18 AM EDT) athologist Signature Total Protein 7.3 6.1 - 8.0 [facility] RYAN g/dL [facility] LABORATORY Albumin 4.2 3.2 - 5.2 [facility] RYAN g/dL [facility] LABORATORY AST 25 0 - 39 [facility] RYAN unit/L [facility] LABORATORY ALT 15 0 - 55 [facility] RYAN unit/L [facility] LABORATORY Alk Phos 75 40 - 130 [facility] unit/L [facility] LABORATORY Total 1.1 0.2 - 1.3 [facility] Bilirubin mg/dL [facility] LABORATORY Bili, Direct 0.2 0.0 - 0.3 [facility] mg/dL [facility] LABORATORY Specimen Anatomical Collection Method Collection Time Receive d Time (Source) Location / / Volume Laterality Blood 12/09/2021 6:18 AM 6:33 EDT AM EDT Resulting Agency Comment Spec In Lab Iker Cuevas MD CHEMISTRY ORDERABLES Performing Organization Address City/[facility]/ZIP Code Phon e Number [address] Lipid Panel (Reflex Direct LDL) (12/09/2021 6:18 AM EDT) athologist Signature Chol, Total 105 mg/dL [facility] LABORATORY Comment: Lower Risk: <200 mg/dL Average Risk: 200-239 mg/dL Higher Risk: >bc=173 mg/dL Triglycerides 133 mg/dL [facility] LABORATORY Comment: Average Risk/Lower Risk: <150 mg/dL Borderline High Risk: 150-199 mg/dL High Risk: 200-499 mg/dL Very High Risk: >nr=635 mg/dL HDL 42 mg/dL [facility] LABORATORY Comment: Males: ?? Higher Risk: <40 mg/dL Females: ?? Higher Risk: <50 mg/dL LDL Cholesterol 36 mg/dL [facility] LABORATORY Comment: Lowest Risk: <100 mg/dL Lower Risk: 100-129 mg/dL Borderline High Risk: 130-159 mg/dL High Risk: 160-189 mg/dL Very High Risk: >fb=191 mg/dL Chol/HDL Ratio 2.5 ratio [facility] LABORATORY Lipid Interpretation See Note [facility] LABORATORY Comment: Lipid management should be guided by a p atient? s ASCVD risk, goals and preferences. ACC/AHA Guidelines recommend high intens ity statin if clinical ASCVD or LDL greater than or equal to 190 mg/dL. http://Auth0.com/GWU-ZMF-Afeesqyrk Adults aged 40-75 with LDL 70-189 mg/dL should have their 10 year ASCVD risk estimated with the ACC/AHA ASCVD risk es timator http://tools.acc.org/DYARN-Ckds-Nubsjmmt r/ Statin should be discussed if risk [...] Organization Address City/State/[place] [address] XR Chest One View [...] who have questions please contact the health daycare provider that requested your imaging first. ? Electronically signed by: Yoselin White, [facility] ([phone]), at 12/09/2021 5:35 AM Narrative 12/09/2021 5:35 [...] ho have questions please contact the health daycare provider that requested your imaging first. Amber Sanches MD IMG DX ORDERABLES (ABNORMAL) BLOOD GAS 2 ARTERIAL (12/09/2021 5:14 AM EDT) Analysis Performed At Patho logist Time Signature pH Art 7.43 7.35 - [facility] 7.45 [facility] LABORATORY pCO2 Art 36 35 - [address] [facility] mmHg [facility] LABORATORY pO2 Art 67 (L) 85 - 104 [facility] LABORATORY HCO3 Art 23.4 20.0 - [facility] 26.0 [facility] mmol/L [facility] LABORATORY BE Art -0.9 -3.0 - 3.[address] [facility] mmol/L [facility] LABORATORY Hgb Blood Gas 13.2 (L) 13.7 - [facility] 16.5 g/dL [facility] O2HB Art 91.3 (L) 94.0 - [facility] 97.0 % [facility] LABORATORY COHB Art 0.4 % [facility] [...] Whole Blood 104 98 - 107 mmol/L [facility] LABORATORY Gluc Whole Bld 223 (H) 65 - 199 mg/dL [facility] LABORATORY Comment: Diabetes: >=200 mg/dL plus [...] Organization Address City/State/[place] [address] COVID-19 PCR (12/08/2021 5:00 PM EDT) [facility] Method Time Signature SARS-CoV-2 Not Detected Not Detected [facility] RNA PCR [facility] LABORATORY Comment: This result should [...] using the Simplexa COVID-19 Direct Assay by [employer] marcum as authorized by the FDA issued [...] Department of Pathology and Laboratory Medicine at [facility], certified under the Clinical Laboratory [...] clinical management guidance information are available at [facility] [facility] CDC Coronavirus Disease 2019 (COVID-19) webpage under Information fo r Healthcare Professionals (https://www.cdc.gov/coronavirus/2019-nc ov/hcp/index.html). Additional information about this and ot her EUA tests can be found in provider and patient fact sheets at the following FDA website: https://www.fda.gov/medical-devices/qvyuwisavmk-ygjiutn-2701-cxzod-90-dbtnrnejg- etl-foaodwviiicgnj-rqwcjvg-devices/vwsxr-rpjgrhshkap-acaa SARS-CoV-2 Source CHIEF PRIVACY OFFICER Swab [facility] Specimen (Source) Anatomical Collection Method Collection Time Re ceived Time Location / / Volume Laterality Nasopharyngeal Swab 12/08/2021 5:00 12/08 PM EDT 6:03 PM EDT Comment: Symptoms->Surveillance Resulting Agency Comment Spec In Lab Iker Cuevas MD MICROBIOLOGY - GENERAL ORDER [place] Performing Organization Address City/State/[place] [address] Scan Doc: Echo (12/08/2021) [...] City/State/ZIP Code Phon e Number MAGDA MAGDA [place], [place] Scan Doc: ECG (12/07/2021) Narrative This result has an attachment that is no t available. 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
--- OUTSIDE RECORDS SUMMARY | 2022-02-18 08:12 | XMS_ITS | Encounter Summary ---
:1945 Author Organization [facility] [place] [address] Care Team Providers Name Role Phone Lovely Vicente MD Primary Care Provider Reason for Visit Reason Onset Date Comments Advice Only 01/28/2022 Encounter Details Date Type Department Care Team Description 01/28/2022 Telephone Cardiology at [facility] Chitra Angela, [place] [phone] Social History Tobacco Use Types Packs/Day [...] Fatima assists patient with medications. Number for labor commissioner scheduling given and she will call them to verify this information Meds reviewed. As per our form from labor commissioner Eliquis hold for 48 hours prior. Pt [...] Cardiology Liz Poole PA [facility] [place], [place] [address] (Wo rk) 03/26/2022 Office Visit Cardiology Vitaliy Nobles MD [facility] ER CARDIOLOGY [place], [place] [address] (Wo rk) documented as of this encounter Visit Diagnoses Not on filedocumented in this encounter Care Teams Imaging Clerk Relationship Specialty Start Date End Date Lovely Vicente MD PCP - General 04/16/[address] [place] [address] documented as of this encounter
--- OUTSIDE RECORDS SUMMARY | 2022-02-18 08:12 | XMS_ITS | Encounter Summary ---
:1945 [place] [address] Care Team Providers Name Role Phone Lovely Vicente MD Primary Care Provider Encounter Details Date Type Department Care Team Description 12/30/2021 Notes [facility] [place] [address] Social History Tobacco Use Types Packs/Day [...] team. DX: HFrEF. Referral placed to [facility] documented in this encounter Plan of Treatment Upcoming Encounters Date Type Specialty Care Team Description 02/19/2022 Laboratory Appointment Lab 02/19/2022 Office Visit Cardiology Liz Poole PA [facility] Cardiology Dept [place], [place] [address] (Wo rk) 03/26/2022 Office Visit Cardiology Vitaliy Nobles MD [facility] ER CARDIOLOGY [place], [place] [address] (Wo rk) documented as of this encounter Visit Diagnoses Not on filedocumented in this encounter Care Teams Acid Dumper Relationship Specialty Start Date End Date Lovely Vicente MD PCP - General 04/16/[address] [place] [address] documented as of this encounter
--- OUTSIDE RECORDS SUMMARY | 2022-02-18 08:12 | XMS_ITS | Encounter Summary ---
:1945 [place] [address] Care Team Providers Name Role Phone Lovely Vicente MD Primary Care Provider Encounter Details Date Type Department Care Team Description 12/24/2021 Orders Only Mortgage Advisor Zulma Finch ASCVD (art eriosclerotic [facility] cardiovascular disease) [facility] [place] [address] [place], [place] [phone] (Work) [phone] Social History Tobacco Use Types Packs/Day Years [...] Liz Poole PA [facility] er Cardiology Dept [place], [place] [address] (Wo rk) 03/26/2022 Office Visit Cardiology Vitaliy Nobles MD [facility] ER DR [place], [place] [address] (Wo rk) documented as of this encounter Visit Diagnoses Diagnosis ASCVD (arteriosclerotic cardiovascular d isease) Unspecified cardiovascular disease Chronic systolic heart failure documented in this encounter Care Teams Pinsetter Mechanic Automatic Relationship Specialty Start Date End Date Lovely Vicente MD PCP - General 04/16/[address] [place] [address] documented as of this encounter
--- OUTSIDE RECORDS SUMMARY | 2022-02-18 08:12 | XMS_ITS | Encounter Summary ---
:1945 Author Organization [facility] [place] [address] Care Team Providers Name Role Phone Lovely Vicente MD Primary Care Provider Encounter Details Date Type Department Care Team Description 12/24/2021 Telephone Public Health at [facility] [place] [phone] Social History Tobacco Use Types Packs/Day [...] PA [facility] Cardiology Dept [place], [place] [address] (Wo rk) 03/26/2022 Office Visit Cardiology Vitaliy Nobles MD [facility] ER CARDIOLOGY [place], [place] [address] (Wo rk) documented as of this encounter Visit Diagnoses Not on filedocumented in this encounter Care Teams Product Development Technician Relationship Specialty Start Date End Date Lovely Vicente MD PCP - General 04/16/[address] [place] [address] documented as of this encounter
--- OUTSIDE RECORDS SUMMARY | 2022-02-18 08:12 | XMS_ITS | Encounter Summary ---
:1945 [place] [address] Care Team Providers Name Role Phone Lovely Vicente MD Primary Care Provider Encounter Details Date Type Department Care Team Description 12/25/2021 Office Visit Cardiology at [facility] Liz Poole, Chronic systolic heart [facility] [place] [address] Cardiology Dept [phone] [place], [place] [address] Social History Tobacco Use Types [...] [facility], transferred from [facility], respiratory distress with hypoxia 86% on [...] mg PO daily in place of Lasix. Inez is new for him and he will [...] Antiplatelet (DAPT) Recommendations above ? TTE from [facility] 12/08/21 ?? 07/28/2019 Echocardiogram: SUMMARY: 1. [...] regurgitation present. 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 Post-op atrial fibrillation [id number] (CHF, HTN, DM, vascular disease, thromboembolism) Eliquis 7. PAD 08/06/2017: Right 1st, 2nd, 3rd toe amputation 08/11/2017: Left??femoral arterial access, RLE??angiogram, Balloon angioplasty of R PT 10/25/2017: right popliteal-pedal bypass at [facility] 8. Hypothyrodism S/p thyroidectomy for goiter Levothyroxine ?? Plan: 1 month follow up with labs Liz Poole PA-C 12/25/2021 documented in this encounter Plan of Treatment Upcoming Encounters Date Type Specialty Care Team Description 02/19/2022 Laboratory Appointment Lab 02/19/2022 Office Visit Cardiology Liz Poole PA [facility] Cardiology Dept [place] [address] (Wo rk) 03/26/2022 Office Visit Cardiology Vitaliy Nobles MD [facility] ER DR CARDIOLOGY [place], [place] [address] ( rk) documented as of this encounter Results (ABNORMAL) pro-Brain Natriuretic Peptide (12/25/2021 7:46 AM EDT) athologist Signature ProBNP 1,380 (H) <=124 [facility] pg/mL [facility] Specimen Anatomical Collection Method Collection Time Receive d Time (Source) Location / / Volume Laterality Blood 12/25/2021 7:46 AM 8:01 EDT AM EDT Resulting Agency Comment Spec In Lab Zulma Plunkett MD CHEMISTRY ORDERABLES Performing Organization Address City/State/[place] [address] (ABNORMAL) Basic Metabolic Panel (non-fasting) (12/25/2021 7:46 AM EDT) athologist Signature Glucose Lvl 272 (H) 65 - 199 [facility] mg/dL [facility] Comment: Diabetes: >=200 mg/dL plus symp toms BUN 62 (H) 10 - 20 mg/dL [facility] Creatinine 1.81 (H) 0.80 - 1.50 mg/dL [facility] Sodium 134 (L) 135 - 145 mmol/L [facility] Potassium 4.9 3.5 - 5.0 mmol/L [facility] Comment: Please note: ??Patients with WBC >100,00 0 may have falsely elevated Potassium levels. ??For accurate Potassium quantif ication in these patients send serum separator tube (gold top) for subsequent determinations. ??Contact the Clinical Chemistry Laboratory if there are any qu estions. Chloride 95 (L) 98 - 107 mmol/L [facility] CO2 28 22 - 31 mmol/L [facility] Anion Gap 11 5 - 15 mmol/L [facility] Calcium 9.4 8.5 - 10.5 mg/dL [facility] Estimated GFR 36 (L) >=60 mL/min/1.73 m?? [facility] [...] Organization Address City/State/ZIP Code Phon e Number [place] [id number] documented in this encounter Visit Diagnoses Diagnosis Chronic systolic heart failure Chronic systolic heart failure documented in this encounter Care Teams Medical Science Liaison Relationship Specialty Start Date End Date Lovely Vicente MD PCP - General 04/16/[address] [place] [address] documented as of this encounter
--- OUTSIDE RECORDS SUMMARY | 2022-02-18 08:12 | XMS_ITS | Encounter Summary ---
:1945 Author Organization [facility] [place] [address] Care Team Providers Name Role Phone Lovely Vicente MD Primary Care Provider Encounter Details Date Type Department Care Team Description 12/12/2021 Telephone Cardiology at [facility] [place] [place] Barbara [place]era, [place] [address] Social History Tobacco Use Types Packs/Day [...] - 12/12/2021 11:36 AM EDT RTC to [facility] regarding pharmacists questions as to whether the [...] 02/19/2022 Office Visit Cardiology Liz Poole PA [facility] Cardiology Dept [place], [place] [address] (Wo rk) 03/26/2022 Office Visit Cardiology Vitaliy Nobles MD [facility] ER CARDIOLOGY [place], [place] [address] (Wo rk) documented as of this encounter Visit Diagnoses Not on filedocumented in this encounter Care Teams Food Safety Director Relationship Specialty Start Date End Date Lovely Vicente MD PCP - General 04/16/[address] [place] [address] documented as of this encounter
--- OUTSIDE RECORDS SUMMARY | 2022-02-18 08:12 | XMS_ITS | Encounter Summary ---
:1945 Author Organization [facility] [place] [address] Care Team Providers Name Role Phone Lovely Vicente MD Primary Care Provider Reason for Referral Consultation (Routine) - Closed Specialty Diagnoses / Referred By Contact Referred To Contact Procedures Cardiac Rehabilitation Diagnoses Acute HFrEF (heart failure with reduced ejection fraction) Janneth Padilla, Cardiac Rehab, [address] [place] CARDIOLOGY DEPT. [address] [place] [address] Referral ID Status Reason Start Date Expiration Date Visits V isits Requested Authorized [id number] Closed Consult, 12/12/2021 12/12/2022 36 36 Test & Treat Reason for Visit Auth/Cert Specialty Diagnoses / Procedures Referred By Contact Refer red To Contact Diagnoses NSTEMI Procedures emerg ipi Referral ID Status Reason Start Date Expiration Date Visits Requ ested Visits Authorized [id number] 1 1 Encounter Details Date Type Department Care Team Description 12/08/2021 - Hospital Encounter Intermediate Cardiac Iker Cuevas MD [facility] [place] [address] Non-ST elevation myocardial infarction ( NSTEMI); 12/12/2021 Care Unit Ifeanyi Rene MD [facility] [place] [address] ST elevation myocardial infarction (STEM I), unspecified artery; [facility] ([facility] Acute HFr EF (heart failure with reduced ejection fraction) [place] [address] Social History Tobacco Use Types Packs/Day Years [...] Don Fatima Patient Age: 76 y.o. Language: Turkish Race: White Ethnicity: Not nor Admit date: [...] Peter PA-C Kelly LaFlamme PA-C Cardiovascular Medicine [phone] Discharge Diagnoses (Hospital Problems) and Secondary Diagnoses [...] 3.75 guiding catheter and a 3.5 Fr [place] 20 Mhz using Manual pullback. Imaging was successful. Image quality was good. The ostial LCX showed moderate diffuse atherosclerotic plaque with scattered three quadrant calcification. Measurements were performed after pre-dilation. Post Intervention: The stent was well expanded and apposed. Intravascular Ultrasound was performed in the distal LM using a 7 Fr EBU 3.75 guiding catheter and a 3.5 Fr [place] 20 Mhz using Manual pullback. Imaging was [...] may require modification of this regimen. Consult [facility] Interventional Cardiology for questions. The [...] mg PO daily in place of lasix. Java is new for him and he will have a BMP checked on 12/[address] Cuevas spoke with the patient's and told her that him drinking too much water and diet drinks did not cause his MS. This is what his thought was the [...] to be ~$24/mo; affordable per patient. Post [facility] he was started on Eliquis. He [...] appointments: During 8am-5pm Wednesday through Wednesday call [phone] to speak with a nurse in the cardiology clinic All other times call [phone] and ask to speak to the application systems architect alterations manager. Return to work: One week Driving: No driving for 48 hours after catheterization. Follow up Appointments: PCP Lovely Vicente MD [phone] to see patient at the end of December for annual check up. Patient to see Dr. Lorenzana at 1120 am at December 19 for a post hospital check up. Support Clerk Dr. De Oliveira to see you in [facility]. Left a message for office to set a date and time. Please call [phone] Nobles to see the patient for a same day cath in 2-3 weeks from now. Office to call with a date and time. For questions please call [phone] Home oxygen therapy: N/A Arrangements for VNA/home care: none Future Appointments and Orders Future Orders Complete By Expires Basic Metabolic Panel (non-fasting) [LAB15 Custom] 12/19/2021 (Approximate) 12/12/2022 Process Instructions: INCLUDES: Calcium, BUN, Creat, GFR, Glucose, Lytes Scheduling Instructions: Comments: Questions: Referral to Cardiac Rehab [[id number] Custom] As directed Process Instructions: If no [...] appointments: During 8am-5pm Wednesday through Wednesday call [phone] to speak with a nurse in the cardiology clinic All other times call [phone] and ask to speak to the application systems architect alterations manager. Return to work: One week Driving: No driving for 48 hours after catheterization. Follow up Appointments: PCP Lovely Vicente MD [phone] to see patient at the end of December for annual check up. Patient to see Dr. Lorenzana at 1120 am at December 19 for a post hospital check up. Support Clerk Dr. De Oliveira to see you in [facility]. Left a message for office to set a date and time. Please call [phone] Nobles to see the patient for a same day cath in 2-3 weeks from now. Office to call with a date and time. For questions please call [phone] Home oxygen therapy: N/A Arrangements for VNA/home [...] Progress Note Patient Name: Don Fatima Service: TWISTER OPERATOR / PA Responsible Attending: Ifeanyi Truong MD [...] was given Lasix 80mg IV x1 in cath lab radiology technician. Tolerated procedure well. Home today at [...] with MD Janneth Neville PA 12/12/2021 Pager [phone] Associated attestation - Ifeanyi Truong MD - [...] ratio for each meal) Desirae Jett APRN [facility] Endocrinology Diabetes Management Pager [phone] 20 minutes of this 35 minute visit [...] Progress Note Patient Name: Don Fatima Service: TWISTER OPERATOR / PA Responsible Attending: Iker Cuevas MD [...] + trop. 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 DM. MARIA VICTORIA.ICM. ??? ASHD [...] was given Lasix 80mg IV x1 in cath lab radiology technician. Tolerated procedure well. Review of Systems: [...] TROPONINT 1.13* 0.92* 0.89* Pertinent Radiographic/Diagnostic Results: R/[facility] 12/10/21 Hemodynamics: Right Heart Pressures Resting: [...] and answered his questions. Iker Cuevas MD [facility] Total time spent on review of records prior to visit, face to face time with patient during visit, documentation, and coordination of care with other clinicians: 25 minutes. . Iker Cuevas MD - 12/10/2021 12:30 PM EDT Images from the original note were not included. Inpatient Cardiology Progress Note Patient Name: Don Fatima Service: TWISTER OPERATOR / PA Responsible Attending: Iker Cuevas MD Reason for continued hospitalization: NSTEMI- s/p R/LHC- PCW 27, occluded SVGs s/p PCI to ostial LCX ADHF and hypoxia- IV diuresis Active Problems: Active Hospital Problems Diagnosis ??? Admitted with 2 days of sob, hypoxemia, and + trop. 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 DM. MARIA VICTORIA.ICM. ??? ASHD [...] was given Lasix 80mg IV x1 in cath lab radiology technician. Tolerated procedure well. Review of Systems: [...] TROPONINT 1.13* 0.92* 0.89* Pertinent Radiographic/Diagnostic Results: R/[facility] 12/10/21 Hemodynamics: Right Heart Pressures Resting: [...] Discussed with MD Migdalia Peter PA-C Pager #[phone] 12/10/2021 Cardiology Attending Note I have seen [...] updated and given pictures. Iker Cuevas MD [facility] Total time spent on review of records prior to visit, face to face time with patient during visit, documentation, and coordination of care with other clinicians: 35 minutes. Iker Cuevas MD - 12/09/2021 7:28 AM EDT Images from the original note were not included. Inpatient Cardiology Progress Note Patient Name: Don Fatima Service: TWISTER OPERATOR / PA Responsible Attending: Iker Cuevas MD Reason for continued hospitalization: NSTEMI- awaiting R/LHC ADHF and hypoxia- IV diuresis, R/LHC Active Problems: Active Hospital Problems Diagnosis ??? Admitted with 2 days of sob, hypoxemia, and + trop. 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 DM. MARIA VICTORIA.ICM. ??? ASHD [...] Discussed with MD Migdalia Peter PA-C Pager #[phone] 12/09/2021 Cardiology Attending Note I have seen [...] < 70 -CPAP tonight Iker Cuevas MD [facility] Total time spent on review of records [...] + trop. 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 DM. MARIA VICTORIA.ICM. ??? ASHD [...] SETUP performed by Manny Mcknight MD at [facility] OR ??? PRO AMPUTATION FOOT, TRANSMETATARSAL Right 08/09/2017 AMPUTATION, TRANSMETATARSAL (WRVU 12.71) performed by Yonathan Smith MD at [facility] OR ??? PRO CABG, ARTERIAL, SINGLE N/A 07/07/2017 @CABG, USING ARTERIAL GRAFT;SINGLE ARTERIAL GRAFT (WRVU 33.75) performed by Yuan Retana MD at [facility] OR ??? PRO CABG, ARTERY-VEIN, TWO N/A 07/07/2017 @CABG, TWO VENOUS GRAFTS & ARTERIAL GRAFT (WRVU 7.93) performed by Yuan Retana MD at [facility] OR ??? PRO COLONOSCOPY, REMV LESN, SNARE 01/16/2014 COLONOSCOPY, POLYPECTOMY, REMOVAL LESION BY SNARE performed by Nohemi Jaimes MD at [facility] ENDOSCOPY ??? PRO DRESSING CHANGE UNDER ANESTHESIA Right 08/11/2017 (MSURG) DRESSING CHANGE (FOR OTHER THAN IVAN) UNDER ANES. (WRVU 0.86) performed by Lamar Smith MD at [facility] OR ??? PRO ENDOSCOPY W/VIDEO-ASST VEIN HARVEST, CABG Right 07/07/2017 ENDOSCOPIC HARVEST VEIN(S) FOR CABG (WRVU 0.31) performed by Yuan Retana MD at [facility] MAIN OR ??? PRO THYROIDECTOMY 03/28/2013 THYROIDECTOMY, TOTAL OR COMPLETE performed by Manny Mcknight MD at [facility] OR Significant Family History: Family History Problem [...] Monitor for ADRs. Trend troponins. Admission EKG. [facility] 12/09; consented. TTE. Telemetry monitoring, daily [...] code #Diet-carb control; n.p.o. after midnight for [facility] #DVT prophy- heparin infusion #GI prophy- PPI Discussed with MD Morgan Peter PA-C APP2 pager [phone] 12/08/2021 Cardiology Attending Note I have seen [...] is type 1 due to graft or [place] coronary stenosis vs acute injury from CHF. 3. PAF: currrently in NSR. Have replaced warfarin with heparin 4. PAD: stable 5. DM: stable 6. CKD: will monitor and minimize contrast. Pt very appreciative of Dr. Yuan Retana's care in 2018. Will let him know patient is here. Iker Cuevas MD [facility] documented in this encounter Miscellaneous Notes Care [...] Type: *No Product type* / Secondary Insurance: [employer] Prescription Coverage: Yes This plan was formulated [...] cardiac cath without complications. PONCHO SullivanC Pager #[phone] 12/10/2021 Initial Assessments - Nick Georges RN [...] COVID test: Lab Results Component Value Date [id number] Not Detected 12/08/2021 Past medical History: Past [...] spouse would be surrogate decision maker per [place] surrogate decision making law. (Only good for 180 days) Any patient receiving care at [facility] must abide by [place] law. The hierarchy for surrogate decision making [...] (i) The agent with financial power of erisa attorney or a conservator appointed in accordance [...] - standard, cane - straight Home Address: [address] [place] [address] [place] [address] Social & Family Supports: All names listed below confirmed with patient as current and correct Extended Emergency Contact Information Primary Emergency Contact: Kisha Fatima Address: [address] [place] [address] [place] [address] [facility] Mobile Relation: Spouse Secondary Emergency Contact: Elba Swenson Address: [place], [place] [id number] [place] [address] Mobile Relation: Child Current Care Provided by: [...] Type: *No Product type* / Secondary Insurance: [employer] BLUE [facility] Prescription Coverage: Yes Preferred Pharmacy: [facility] [address] - [place], [place] - [address] [place] [address] [place] Status: Patient is a : unable to assess Primary Care Provider: Lovely Vicente MD [phone] Patient/Caregiver Goals of Treatment: Get out of here Potential Needs for Transition of Care: none Agency Referrals: none patient has used [facility] in the past Transportation: no concerns Transportation Anticipated: family or friend will provide Concerns to be Addressed: patient refuses services, discharge planning Assessment: Patient is admitted to [facility] Service pager [phone] for 76 y.o.??male??with h/o??CAD s/p 3vCABG (THOMPSON-LAD, [...] status on current unit. Nick Georges RN injector assembler, Office of Care Management Pager: [phone] Brief Op Note - Vitaliy Nobles MD - 12/10/2021 8:31 AM EDT Images from the original note were not included. [facility] [place] [address] CORONARY ANGIOGRAM AND PERCUTANEOUS CORONARY INTERVENTION REPORT Patient: Don Fatima : 1945 MR number: [id number] Date of Service: 12/10/2021 Jig Operator: Vitaliy Nobles MD Fellow: [place] [...] management and to provide a review of salvage determiner diabetes care. Diabetes History: Don Fatima has had diabetes for 10 years. He has been on insulin for the last several years andis managed by his PCP. Lives in [place], [place] with his . States that he [...] 5 gm carb ratio for each meal) nursing home diabetes care: Medications - Outpatient treatment regimen recommendations pending based on the hospital course. Monitoring - continue BG tid ac & hs Diet - low fat/low carb diet Exercise - weight-bearing exercise 30 min/day, as tolerated Thank you for allowing us to provide care for your patient Desirae Johnie QUINONES Endocrinology Pager [phone] 70 minutes of this 80 minute visit [...] + trop. 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 DM. MARIA VICTORIA.ICM. ??? ASHD [...] to remain on Med/Surg floor, please page [phone] for any further questions or concerns. LANDON VILLAFANA RN 5:23 AM December 09, 2021 Plan of Care - Mogran Andrew PA - 12/08/2021 5:29 PM EDT [...] for further details. STEPHANIE Rebolledo 12/08/2021 Pager [phone] documented in this encounter Plan of Treatment Upcoming Encounters Date Type Specialty Care Team Description 02/19/2022 Laboratory Appointment Lab 02/19/2022 Office Visit Cardiology Liz Poole PA [facility] er Cardiology Dept [place], [place] [address] (Wo rk) 03/26/2022 Office Visit Cardiology Vitaliy Nobles MD [facility] CARDIOLOGY [place], [place] [address] (Wo rk) Scheduled Referrals Name [...] (H) 65 - 199 [facility] mg/dL [facility] Comment: Supplemental ranges: <140 mg/dL before meals <180 mg/dL all other times of the day Specimen Anatomical Collection Method Collection Time Receive d Time (Source) Location / / Volume Laterality Blood 12/12/2021 7:42 AM 7:42 EDT AM EDT Ifeanyi Truong MD POINT OF CARE TEST ORDERABLE S Performing Organization Address City/State/[place] [address] (ABNORMAL) Differential, Automated (12/12/2021 4:51 AM EDT) athologist Signature Neutrophils % 75.4 % [facility] Neutr Abs (ANC) 5.95 1.70 - [facility] 6.10 [facility] x10(3)/[facility] LABORATORY Lymphocytes % 12.2 % [facility] Lymphocytes Abs 1.0 0.9 - 3.2 [facility] x10(3)/[facility] LABORATORY Monocytes % 9.5 % [facility] Monocyte Abs 0.8 0.3 - 0.9 [facility] x10(3)/[facility] LABORATORY Eosinophils % 1.8 % [facility] Eosinophils Abs 0.1 0.0 - 0.4 [facility] x10(3)/[facility] LABORATORY Basophils % 0.5 % [facility] Basophils Abs 0.0 0.0 - 0.1 [facility] x10(3)/[facility] LABORATORY Immature Gran % 0.60 % [...] Organization Address City/State/ZIP Code Phon e Number [place] [id number] (ABNORMAL) Hemogram (12/12/2021 4:51 AM EDT) Analysis Performed At Patho logist Time Signature WBC 7.9 4.0 - 9.5 [facility] x10(3)/[facility] LABORATORY RBC 4.19 (L) 4.58 - [facility] 5.54 [facility] x10(6)/[facility] LABORATORY Hemoglobin 12.1 (L) 13.7 [facility] 16[facility] g/dL [facility] Hematocrit 36.7 (L) 40.5 - [facility] 48.5 % [facility] MCV 87.6 82.9 [facility] 93.1 [facility] LABORATORY MCH 28.9 27.5 - [facility] SU 32.1 pg [facility] MCHC 33.0 32.[address] - [facility] 35.7 g/dL [facility] Platelets 231 145 - 357 [facility] x10(3)/[facility] LABORATORY RDWSD 47.2 (H) 36.[address] [facility] 45.0 [facility] LABORATORY RDWCV 14.6 (H) 11.4 - [facility] SU 13.8 % [facility] MPV 9.5 7.6 - 12.9 [facility] LABORATORY nRBC % Auto 0.0 % [facility] nRBC Abs Auto 0.000 0.000 - [facility] 0.000 [facility] x10(3)/[facility] LABORATORY Specimen Anatomical Collection Method Collection Time Receive d Time (Source) Location / / Volume Laterality Blood 12/12/2021 4:51 AM 2 5:06 EDT AM EDT Resulting Agency Comment Spec In Lab Bijan Sun MD HEMATOLOGY ORDERABLES Performing Organization Address City/[facility] [place] [address] (ABNORMAL) Prothrombin Time (12/12/2021 4:51 AM EDT) P athologist Signature PT 14.9 (H) 9.4 - 12.5 [facility] LABORATORY INR 1.3 [facility] [...] Cuevas MD HEMATOLOGY ORDERABLES Performing Organization Address City/[facility] [place] [address] (ABNORMAL) BMP w/fasting Glucose (12/12/2021 4:51 AM EDT) P athologist Signature Glucose 152 (H) 65 - 99 [facility] Fasting mg/dL [facility] Comment: ?Fasting* Glucose Interpretive C [...] of Diabetes Mellitus, Position Statement from the [place] [employer]. ??Diabete s Care, Volume 33, Supplement 1, Jul 2009 BUN 52 (H) 10 - 20 mg/dL [facility] Creatinine 1.72 (H) 0.80 - 1.50 mg/dL [facility] Sodium 143 135 - 145 mmol/L [facility] Potassium 3.9 3.5 - 5.0 mmol/L [facility] mmol/L [facility] Calcium 8.9 8.5 - 10.5 mg/dL [facility] Estimated GFR 38 (L) >=60 [...] Address City/State/ZIP Code Phon e Number [address] Magnesium (12/12/2021 4:51 AM EDT) athologist Signature Magnesium 1.02 0.69 - 1.07 [facility] mmol/L [facility] Specimen Anatomical Collection Method Collection Time Receive d Time (Source) Location / / Volume Laterality Blood 12/12/2021 4:51 AM 2 5:06 EDT AM EDT Resulting Agency Comment Spec In Lab Iker Cuevas MD CHEMISTRY ORDERABLES Performing Organization Address City/[facility]/ZIP Code Phon e Number [address] POCT Glucose (12/12/2021 3:43 AM EDT) athologist Signature POC Glucose 138 65 - [facility] mg/dL [facility] Comment: Supplemental ranges: <140 mg/dL before meals <180 mg/dL all other times of the day Specimen Anatomical Collection Method Collection Time Receive d Time (Source) Location / / Volume Laterality Blood 12/12/2021 3:43 AM 2 3:43 EDT AM EDT Iker Cuevas MD POINT OF CARE TEST ORDERABLE S Performing Organization Address City/State/Z[place] [address] POCT Glucose (12/11/2021 11:44 PM EDT) athologist Signature POC Glucose 124 65 - [facility] mg/dL [facility] Comment: Supplemental ranges: <140 mg/dL before meals <180 mg/dL all other times of the day Specimen Anatomical Collection Method Collection Time Receive d Time (Source) Location / / Volume Laterality Blood 12/11/2021 11:44 12/11/2021 PM EDT 11:44 PM EDT Iker Cuevas MD POINT OF CARE TEST ORDERABLE S Performing Organization Address City/State/Z[place] [address] (ABNORMAL) POCT Glucose (12/11/2021 8:12 PM EDT) athologist Signature POC Glucose 200 (H) 65 - 199 [place] [facility] mg/dL [facility] Comment: Supplemental ranges: <140 mg/dL before meals <180 mg/dL all other times of the day Specimen Anatomical Collection Method Collection Time Receive d Time (Source) Location / / Volume Laterality Blood 12/11/2021 8:12 PM 2 8:12 EDT PM EDT Iker Cuevas MD POINT OF CARE TEST ORDERABLE S Performing Organization Address City/[facility]/ZIP [place] [address] (ABNORMAL) POCT Glucose (12/11/2021 6:50 PM EDT) athologist Signature POC Glucose 245 (H) 65 - 199 [place] [facility] mg/dL [facility] Comment: Supplemental ranges: <140 mg/dL before meals <180 mg/dL all other times of the day Specimen Anatomical Collection Method Collection Time Receive d Time (Source) Location / / Volume Laterality Blood 12/11/2021 6:50 PM 2 6:50 EDT PM EDT Iker Cuevas MD POINT OF CARE TEST ORDERABLE S Performing Organization Address City/State/Z[place] [address] (ABNORMAL) POCT Glucose (12/11/2021 4:00 PM EDT) athologist Signature POC Glucose 383 (H) 65 - 199 [place] mg/dL [facility] Comment: Supplemental ranges: <140 mg/dL before meals <180 mg/dL all other times of the day Specimen Anatomical Collection Method Collection Time Receive d Time (Source) Location / / Volume Laterality Blood 12/11/2021 4:00 PM 4:00 EDT PM EDT Iker Cuevas MD POINT OF CARE TEST ORDERABLE S Performing Organization Address City/State/ZIP Code Phon e Number [address] (ABNORMAL) POCT Glucose (12/11/2021 12:01 PM EDT) P athologist Signature POC Glucose 342 (H) 65 - 199 [facility] mg/dL [facility] Comment: Supplemental ranges: <140 mg/dL before meals <180 mg/dL all other times of the day Specimen Anatomical Collection Method Collection Time Receive d Time (Source) Location / / Volume Laterality Blood 12/11/2021 12:01 12/11/2021 PM EDT 12:01 PM EDT Iker Cuevas MD POINT OF CARE TEST ORDERABLE S Performing Organization Address City/State/Z[place] [address] COVID-19 PCR (12/11/2021 10:13 AM EDT) Patholo gist Method Time Signature SARS-CoV-2 Not Detected Not Detected [place] RNA [facility] Comment: This result should [...] diagnosis of COVID-19 is performed using the [employer] m RONNA S-CoV-2 Assay as authorized by the FDA Emergency Use Authorization (EUA). This EUA assay is intended for In-vitro Diagnostic (IVD) use with respiratory sp ecimens such as nasopharyngeal swabs collected from individuals during the ac [place] phase of infection. This assay is performed based on the instructions for use provided by [employer] and additional guidance provided by CDC and FDA. Testing is performed in the Clinical Genomics and Advanced Technolog y Laboratory within the Department of Pathology and Laboratory Medicine at [facility], certified under the Clinical Laboratory Improvement Amendments [...] clinical management guidance information are available at [facility] CDC Coronavirus Disease 2019 (COVID-19) webpage under Information fo r Healthcare Professionals (https://www.cdc.gov/coronavirus/2019-nc ov/hcp/index.html) Additional information about this and ot her EUA tests can be found in provider and patient fact sheets at the following FDA website: https://www.fda.gov/medical-devices/fjmpehprenv-cbjdhhq-1841-wxvlg-64-pornumuzn- ujh-ckzruuokxzsark-zlvqtad-devices/tjonr-cpubgfuigyo-ucda SARS-Cov-2 RNA Source TWISTER OPERATOR Swab [facility] Specimen (Source) Anatomical Collection Method Collection Time Re ceived Time Location / / Volume Laterality Nasopharyngeal Swab 12/11/2021 10:13 0503/2022 AM EDT 11:16 AM EDT Comment: Symptoms->Surveillance Resulting Agency Comment Spec In Lab Iker Cuevas MD MICROBIOLOGY - GENERAL ORDER [place]BS[place] Performing Organization Address City/[facility]/ZIP [place] [address] POCT Glucose (12/11/2021 7:34 AM EDT) P athologist Signature POC Glucose 198 65 - 199 [facility]dL [facility] Comment: Supplemental ranges: <140 mg/dL before meals <180 mg/dL all other times of the day Specimen Anatomical Collection Method Collection Time Receive d Time (Source) Location / / Volume Laterality Blood 12/11/2021 7:34 AM 2 7:34 EDT AM EDT Iker Cuevas MD POINT OF CARE TEST ORDERABLE S Performing Organization Address City/[facility]/ZIP [place] [address] (ABNORMAL) POCT Glucose (12/11/2021 5:07 AM EDT) P athologist Signature POC Glucose 208 (H) 65 - [address] [facility] Comment: Supplemental ranges: <140 mg/dL before meals <180 mg/dL all other times of the day Specimen Anatomical Collection Method Collection Time Receive d Time (Source) Location / / Volume Laterality Blood 12/11/2021 5:07 AM 2 5:07 EDT AM EDT Iker Cuevas MD POINT OF CARE TEST ORDERABLE S Performing Organization Address City/[facility]/[place] [address] (ABNORMAL) Differential, Automated (12/11/2021 4:28 AM EDT) [facility] g[facility] Method Time Signature Neutrophils % 79.6 % [facility] LABORATORY Neutr Abs (ANC) 7.01 (H) 1.70 - [facility] 6.10 [facility] x10(3)/[facility] L LABORATORY Lymphocytes % 9.1 % [facility] Lymphocytes Abs 0.8 (L) 0.9 - 3.2 [facility] x10(3)/[facility] LABORATORY Monocytes % 9.2 % [facility] Monocyte Abs 0.8 0.3 - 0.9 [facility] x10(3)/[facility] LABORATORY Eosinophils % 1.3 % [facility]ORATORY Eosinophils Abs 0.1 0.0 - 0.4 [facility] x10(3)/[facility] LABORATORY Basophils % 0.5 % [facility]ATORY Basophils Abs 0.0 0.0 - 0.1 [facility] x10(3)/[facility] LABORATORY Immature [...] Gran Abs 0.03 0.00 - 0.04 x10(3)/[facility] MAR Y [facility]ORY Specimen Anatomical Collection Method Collection Time Receive d Time (Source) Location / / Volume Laterality Blood 12/11/2021 4:28 AM 4:37 EDT AM EDT Resulting Agency Comment Spec In Lab Bijan Sun MD HEMATOLOGY ORDERABLES Performing Organization Address City/State/[place] [address] (ABNORMAL) Hemogram (12/11/2021 4:28 AM EDT) Analysis Performed At Patho logist Time Signature WBC 8.8 4.0 - 9.5 [facility] x10(3)/[facility] LABORATORY RBC 4.15 (L) 4.58 - [facility] 5.54 [facility] x10(6)/[facility] LABORATORY Hemoglobin 11.9 (L) 13.7 - [facility] 16.5 g/dL [facility] Hematocrit 36.9 (L) 40.5 - [facility] 48.5 % [facility] MCV 88.9 82.9 - [facility] 93.1 [facility] LABORATORY MCH 28.7 27.5 - [facility] 32.1 pg [facility] MCHC 32.2 32.0 - [facility] 35.7 g/dL [facility] Platelets 211 145 - 357 [facility] x10(3)/[facility] LABORATORY RDWSD 48.3 (H) 36.0 - [facility] SU 45.0 [facility] LABORATORY RDWCV 14.8 (H) 11.4 - [facility] 13.8 % [facility] MPV 9.6 7.6 - 12.9 [facility] LABORATORY nRBC % Auto 0.0 % [facility] LABORATORY nRBC Abs Auto 0.000 0.000 - [facility] 0.000 [facility] x10(3)/[facility] LABORATORY Specimen Anatomical Collection Method Collection Time Receive d Time (Source) Location / / Volume Laterality Blood 12/11/2021 4:28 AM 2 4:37 EDT AM EDT Resulting Agency Comment Spec In Lab Bijan Sun MD HEMATOLOGY ORDERABLES Performing Organization Address City/State/[place] [address] (ABNORMAL) Prothrombin Time (12/11/2021 4:28 AM EDT) P athologist Signature PT 17.7 (H) 9.4 - 12.5 [facility] sec [facility] INR 1.6 [facility] [...] City/State/[place] [address] (ABNORMAL) BMP w/fasting Glucose (12/11/2021 4:28 AM EDT) P athologist Signature Glucose 207 (H) 65 - 99 [facility] Fasting mg/dL [facility] Comment: ?Fasting* Glucose Interpretive C [...] of Diabetes Mellitus, Position Statement from the [place] [employer]. ??Diabete s Care, Volume 33, Supplement 1, Jul 2009 BUN 49 (H) 10 - 20 mg/dL [facility] LABORATORY Creatinine 1.43 0.80 - 1.50 mg/dL [facility] LABORATORY Sodium 142 135 - [...] [facility] LAB[facility]ORY Estimated GFR 48 (L) >=60 [...] Address City/State/ZIP Code Phon e Number [address] Magnesium (12/11/2021 4:28 AM EDT) P athologist Signature Magnesium 1.04 0.69 - 1.07 [facility] mmol/L [facility] Specimen Anatomical Collection Method Collection Time Receive d Time (Source) Location / / Volume Laterality Blood 12/11/2021 4:28 AM 2 4:37 EDT AM EDT Resulting Agency Comment Spec In Lab Iker Cuevas MD CHEMISTRY ORDERABLES Performing Organization Address City/State/ZIP Code Phon e Number [address] POCT Glucose (12/11/2021 3:58 AM EDT) P athologist Signature POC Glucose 189 65 - 199 [facility] mg/dL [facility] Comment: Supplemental ranges: <140 mg/dL before meals <180 mg/dL all other times of the day Specimen Anatomical Collection Method Collection Time Receive d Time (Source) Location / / Volume Laterality Blood 12/11/2021 3:58 AM 2 3:58 EDT AM EDT Iker Cuevas MD POINT OF CARE TEST ORDERABLE S Performing Organization Address City/State/[place] [address] (ABNORMAL) POCT Glucose (12/10/2021 11:45 PM EDT) athologist Signature POC Glucose 205 (H) 65 - 199 [facility] mg/dL [facility] Comment: Supplemental ranges: <140 mg/dL before meals <180 mg/dL all other times of the day Specimen Anatomical Collection Method Collection Time Receive d Time (Source) Location / / Volume Laterality Blood 12/10/2021 11:45 12/10/2021 PM EDT 11:45 PM EDT Iker Cuevas MD POINT OF CARE TEST ORDERABLE S Performing Organization Address City/[facility]/ZIP [place] [address] (ABNORMAL) POCT Glucose (12/10/2021 7:54 PM EDT) athologist Signature POC Glucose 225 (H) 65 - [address] [facility] Comment: Supplemental ranges: <140 mg/dL before meals <180 mg/dL all other times of the day Specimen Anatomical Collection Method Collection Time Receive d Time (Source) Location / / Volume Laterality Blood 12/10/2021 7:54 PM 2 7:54 EDT PM EDT Iker Cuevas MD POINT OF CARE TEST ORDERABLE S Performing Organization Address City/[facility]/ZIP [place] [address] Potassium (12/10/2021 7:46 PM EDT) athologist Signature Potassium 4.2 3.5 - 5.[facility]L [facility] Comment: Please note: ??Patients with [...] City/State/[place] [address] (ABNORMAL) Basic Metabolic Panel (non-fasting) (12/10/2021 6:12 PM EDT) athologist Signature Glucose Lvl 246 (H) 65 - 199 [facility] mg/dL [facility] Comment: Diabetes: >=200 mg/dL plus symp toms BUN 50 (H) 10 - 20 mg/dL [facility] LABORATORY Creatinine 1.39 0.80 - 1.50 mg/dL [facility] Sodium 138 135 - 145 mmol/L [facility] LAB[facility] Potassium Not Perf 3.5 - 5.0 [facility] Comment: Unable to quantitate due [...] Gap 16 (H) 5 - 15 mmol/L [facility] LABORATORY Calcium 8.3 (L) 8.5 - 10.5 mg/dL [facility] Estimated GFR 49 (L) >=60 [...] Organization Address City/State/Z[place] [address] POCT Glucose (12/10/2021 4:59 PM EDT) athologist Signature POC Glucose 158 65 - [facility] Comment: Supplemental ranges: <140 mg/dL before meals <180 mg/dL all other times of the day Specimen Anatomical Collection Method Collection Time Receive d Time (Source) Location / / Volume Laterality Blood 12/10/2021 4:59 PM 2 4:59 EDT PM EDT Iker Cuevas MD POINT OF CARE TEST ORDERABLE S Performing Organization Address City/State/[place] [address] (ABNORMAL) POCT Glucose (12/10/2021 12:43 PM EDT) P athologist Signature POC Glucose 241 (H) 65 - 199 [facility] mg/dL [facility] Comment: Supplemental ranges: <140 mg/dL before meals <180 mg/dL all other times of the day Specimen Anatomical Collection Method Collection Time Receive d Time (Source) Location / / Volume Laterality Blood 12/10/2021 12:43 12/10/2021 PM EDT 12:43 PM EDT Iker Cuevas MD POINT OF CARE TEST ORDERABLE S Performing Organization Address City/State/ZIP Code Phon e Number [place] [phone] EKG 12 Lead (12/10/2021 11:17 AM EDT) Component Value Ref Range Test Analysis Performed Pathologis t Method Time At Signature Ventricular rate 62 BPM MUSE SYSTEM Atrial Rate 62 BPM MUSE SYSTEM P-R Interval 142 ms MUSE SYSTEM QRS Duration 100 ms MUSE SYSTEM Q-T Interval 434 ms MUSE SYSTEM QTC Calculated 440 ms MUSE SYSTEM (Bezet) Calculated P [place] 34 degrees MUSE SYSTEM Calculated R [place] -39 degrees MUSE SYSTEM Calculated T [place] 92 degrees MUSE SYSTEM INTERPRETATION Normal sinus [...] SYSTEM - 12/10/2021 12:04 PM E DT ?[facility] ? Cardiac Cathete rization/Intervention Report ? Patient Name: Kushal Don Mccollum. ? Procedure Date: 12/10/2021 ? A #: [id number] ? Primary Physician: Nobles, Vitaliy P ? Case #: [id number] ? File Name: [id number] ? Catheterization Order Number: [id number] ? [facility] ? Final Report [place], [place] ? Patient Name: ? Don E. Stewa rt ? ID#: ?[id number] ? : ?1945 ? Procedure Date: ? December 10, 2021 ? Case #: ? [id number] ? Room: ? 1 ? Case Physician: [...] was ?designated as ASA Class III. e [facility] clinical frailty scale is 5: Mildly ?Frail. [...] procedure was Urgent. The indication for ?the cath lab radiology technician visit is ACS great er than [...] ?3.75 guiding catheter and a 3.5 Fr [place] 20 Mhz using Manual ?pullback. ??Imaging was [...] ?3.75 guiding catheter and a 3.5 Fr [place] 20 Mhz using Manual ?pullback. ??Imaging was [...] 7 Fr. EBU 3.75 ? guide. ??The mrina hanks was predilated with a 2.75mm NC [...] require ?modification of this regimen. C onsult [facility] Interventional Cardiology for ?questions. ?The 1 year bleeding risk as nusrat culated by the PRECISE DAPT score is High ?risk. ?High Bleeding Risk - Anticoagul ation and DAPT: ?- ??Assess ischemic and bleedin g risks using validated risk predictors ?(e.g. CHADS2-VASC, HAS-BLED, SD ECISE DAPT, DAPT Score) ?- ??Keep anticoagulant [...] Procedure Note Vitaliy Nobles MD - 01/14/2022 [facility] Cardiac Catheterization/Intervention Re port Patient Name: Don Fatima Procedure Date: 12/10/2021 A #: [id number] Primary Physician: Vitaliy Nobles Case #: [id number] File Name: [id number] Catheterization Order Number: [id number] [facility] Final Report [place], [place] Patient Name: Don Fatima ID#: [...] e was Urgent. The indication for the cath lab radiology technician visit is ACS greater than 24 [...] and a 3.5 Fr [place] 20 Mhz using Manual pullback. Imaging was [...] and a 3.5 Fr [place] 20 Mhz using Manual pullback. Imaging was [...] require modification of this regimen. Consult [facility] [place] [place] Interventional Cardiology for questions. The 1 year [...] (H) 65 - 199 [facility] mg/dL [facility] Comment: Supplemental ranges: <140 mg/dL before meals <180 mg/dL all other times of the day Specimen Anatomical Collection Method Collection Time Receive d Time (Source) Location / / Volume Laterality Blood 12/10/2021 10:30 12/10/2021 AM EDT 10:30 AM EDT Iker Cuevas MD POINT OF CARE TEST ORDERABLE S Performing Organization Address City/[facility]/ZIP [place] [address] (ABNORMAL) POCT Glucose (12/10/2021 9:48 AM EDT) athologist Signature POC Glucose 279 (H) 65 - [facility] Comment: Supplemental ranges: <140 mg/dL before meals <180 mg/dL all other times of the day Specimen Anatomical Collection Method Collection Time Receive d Time (Source) Location / / Volume Laterality Blood 12/10/2021 9:48 AM 9:48 EDT AM EDT Iker Cuevas MD POINT OF CARE TEST ORDERABLE S Performing Organization Address City/[facility]/ZIP [place] [address] (ABNORMAL) POCT Glucose (12/10/2021 9:07 AM EDT) athologist Signature POC Glucose 268 (H) 65 - 199 [facility] mg/dL [facility] Comment: Supplemental ranges: <140 mg/dL before meals <180 mg/dL all other times of the day Specimen Anatomical Collection Method Collection Time Receive d Time (Source) Location / / Volume Laterality Blood 12/10/2021 9:07 AM 2 9:07 EDT AM EDT Iker Cuevas MD POINT OF CARE TEST ORDERABLE S Performing Organization Address City/State/[place] [address] (ABNORMAL) Point of Care Blood Gas Historical (12/10/2021 9:04 AM EDT) Patholo gist Method Time Signature POC pH 7.40 7.35 - [facility] 7.45 [facility] LABORATORY POC PCO2 40 35 - 45 [facility] mmHg [facility] LABORATORY POC PO2 63 (L) 85 - 104 [facility] LABORATORY POC Base Excess 0.0 -3.0 - 3.0 [facility] K mmol/L [facility] LABORATORY POC HCO3 24.8 20.0 - [facility] 26.0 [facility] POC Sodium 143 135 - 145 [facility] mmol/L [facility] LABORATORY POC Potassium 3.7 3.5 - 5.0 [facility] mmol/L [facility] LABORATORY POC Ionized Ca 1.07 (L) 1.15 - [facility] 1.33 [facility] POC Hematocrit 30.0 (L) 40.0 - [facility] 51.0 % [facility] LABORATORY POC Calc Hgb 10.2 (L) 13.7 - [facility] 17.5 g/dL [facility] Comment: The calculation of hemoglobin f rom hematocrit assumes a normal MCHC. POC Bgas Loc CC LAB [facility] LABORATORY Specimen Anatomical Collection Method Collection Time Receive d Time (Source) Location / / Volume Laterality Blood 12/10/2021 9:04 AM 2 EDT 12:00 PM EDT Ifeanyi Truong MD CHEMISTRY ORDERABLES Performing Organization Address City/State/ZIP Code Phon e Number [place] [phone] (ABNORMAL) POCT Glucose (12/10/2021 7:19 AM EDT) P athologist Signature POC Glucose 274 (H) 65 - 199 [facility] mg/dL [facility] Comment: Supplemental ranges: <140 mg/dL before meals <180 mg/dL all other times of the day Specimen Anatomical Collection Method Collection Time Receive d Time (Source) Location / / Volume Laterality Blood 12/10/2021 7:19 AM 2 7:19 EDT AM EDT Iker Cuevas MD POINT OF CARE TEST ORDERABLE S Performing Organization Address City/[facility]/ZIP Code Phon e Number [address] Heparin (unfractionated) Level (12/10/2021 4:25 AM EDT) P athologist Signature Heparin UFH 0.69 IU/mL [facility] LABORATORY Comment: Heparin (anti-Xa) levels should be [...] Cuevas MD HEMATOLOGY ORDERABLES Performing Organization Address City/[facility]/ZIP Code Phon e Number [address] (ABNORMAL) Differential, Automated (12/10/2021 4:25 AM EDT) Patholo gist Method Time Signature Neutrophils % 79.8 % [facility] LABORATORY Neutr Abs (ANC) 7.47 (H) 1.70 - [facility] 6.10 [facility] x10(3)/[facility] L LABORATORY Lymphocytes % 10.6 % [facility] LABORATORY Lymphocytes Abs 1.0 0.9 - 3.2 [facility] x10(3)/[facility] LABORATORY Monocytes % 8.4 % [facility] LABORATORY Monocyte Abs 0.8 0.3 - 0.9 [facility] x10(3)/[facility] LABORATORY Eosinophils % 0.6 % [facility] LABORATORY Eosinophils Abs 0.1 0.0 - 0.4 [facility] x10(3)/[facility] LABORATORY Basophils % 0.2 % [facility] LABORATORY Basophils Abs 0.0 0.0 - 0.1 [facility] x10(3)/[facility] LABORATORY Immature [...] Gran Abs 0.04 0.00 - 0.04 x10(3)/[facility] MAR Y [facility] LABORATORY Specimen Anatomical Collection Method Collection Time Receive d Time (Source) Location / / Volume Laterality Blood 12/10/2021 4:25 AM 2 4:34 EDT AM EDT Resulting Agency Comment Spec In Lab Morgan BROWN HEMATOLOGY ORDERABLES Performing Organization Address City/State/[place] [address] (ABNORMAL) Hemogram (12/10/2021 4:25 AM EDT) Analysis Performed At Patho logist Time Signature WBC 9.4 4.0 - 9.5 [facility] x10(3)/[facility] LABORATORY RBC 3.81 (L) 4.58 - [facility] 5.54 [facility] x10(6)/[facility] LABORATORY Hemoglobin 11.1 (L) 13.7 - [facility] 16.5 g/dL [facility] LABORATORY Hematocrit 34.0 (L) 40.5 - [facility] 48.5 % [facility] LABORATORY MCV 89.2 82.9 - [facility] 93.1 [facility] LABORATORY MCH 29.1 27.5 - [facility] 32.1 pg [facility] LABORATORY MCHC 32.6 32.0 - [facility] 35.7 g/dL [facility] LABORATORY Platelets 183 145 - 357 [facility] x10(3)/[facility] LABORATORY RDWSD 49.9 (H) 36.0 - [facility] 45.0 [facility] LABORATORY RDWCV 15.2 (H) 11.4 - [facility] 13.8 % [facility] LABORATORY MPV 9.8 7.6 - 12.9 [facility] LABORATORY nRBC % Auto 0.0 % [facility] LABORATORY nRBC Abs Auto 0.000 0.000 - [facility] 0.000 [facility] x10(3)/[facility] LABORATORY Specimen Anatomical Collection Method Collection Time Receive d Time (Source) Location / / Volume Laterality Blood 12/10/2021 4:25 AM 2 4:34 EDT AM EDT Resulting Agency Comment Spec In Lab Morgan BROWN HEMATOLOGY ORDERABLES Performing Organization Address City/State/ZIP Code Phon e Number [place] [phone]OS[address] (ABNORMAL) Prothrombin Time (12/10/2021 4:25 AM EDT) P athologist Signature PT 20.0 (H) 9.4 - 12.5 [facility] LABORATORY INR 1.7 [facility] [...] City/State/[place] [address] (ABNORMAL) BMP w/fasting Glucose (12/10/2021 4:25 AM EDT) athologist Signature Glucose 210 (H) 65 - 99 [facility] Fasting mg/dL [facility] LABORATORY Comment: ?Fasting* Glucose Interpretive C [...] of Diabetes Mellitus, Position Statement from the [place] [employer]. ??Diabete s Care, Volume 33, Supplement 1, Jul 2009 BUN 54 (H) 10 - 20 mg/dL [facility] LABORATORY Creatinine 1.52 (H) 0.80 - 1.50 mg/dL [facility] LABORATORY Sodium 140 135 - 145 mmol/L [facility] LABORATORY Potassium 3.9 3.5 - 5.0 mmol/L [facility] [...] Calcium 8.0 (L) 8.5 - 10.5 mg/dL [facility] LABORATORY Estimated GFR 44 (L) >=60 [...] Address City/State/ZIP Code Phon e Number [address] Magnesium (12/10/2021 4:25 AM EDT) P athologist Signature Magnesium 0.95 0.69 - 1.07 [facility] mmol/L [facility] LABORATORY Specimen Anatomical Collection Method Collection Time Receive d Time (Source) Location / / Volume Laterality Blood 12/10/2021 4:25 AM 2 4:34 EDT AM EDT Resulting Agency Comment Spec In Lab Iker Cuevas MD CHEMISTRY ORDERABLES Performing Organization Address City/State/ZIP Code Phon e Number [address] POCT Glucose (12/10/2021 1:58 AM EDT) P athologist Signature POC Glucose 164 65 - 199 [facility] mg/dL [facility] LABOR[facility]ORY Comment: Supplemental ranges: <140 mg/dL before meals <180 mg/dL all other times of the day Specimen Anatomical Collection Method Collection Time Receive d Time (Source) Location / / Volume Laterality Blood 12/10/2021 1:58 AM 2 1:58 EDT AM EDT Iker Cuevas MD POINT OF CARE TEST ORDERABLE S Performing Organization Address City/[facility]/ZIP [place] [address] (ABNORMAL) POCT Glucose (12/09/2021 9:02 PM EDT) athologist Signature POC Glucose 313 (H) 65 - 199 [facility] mg/dL [facility]ORY Comment: Supplemental ranges: <140 mg/dL before meals <180 mg/dL all other times of the day Specimen Anatomical Collection Method Collection Time Receive d Time (Source) Location / / Volume Laterality Blood 12/09/2021 9:02 PM 2 9:02 EDT PM EDT Iker Cuevas MD POINT OF CARE TEST ORDERABLE S Performing Organization Address City/[facility]/ZIP Code Phon e Number [place] [phone]OS[address] Heparin (unfractionated) Level (12/09/2021 7:30 PM EDT) athologist Signature Heparin UFH 0.48 IU/mL [facility] LABORATORY Comment: Heparin (anti-Xa) levels should be [...] City/State/[place] [address] (ABNORMAL) Basic Metabolic Panel (non-fasting) (12/09/2021 7:30 PM EDT) P athologist Signature Glucose Lvl 372 (H) 65 - 199 [facility] mg/dL [facility] LABORATORY Comment: Diabetes: >=200 mg/dL plus symp toms BUN 56 (H) 10 - 20 mg/dL [facility] LABORATORY Creatinine 1.75 (H) 0.80 - 1.50 mg/dL [facility] LABORATORY Sodium 138 135 - 145 mmol/L [facility] LABORATORY Potassium 4.2 3.5 - 5.0 mmol/L [facility] [...] [facility] Estimated GFR 37 (L) >=60 [...] Organization Address City/State/ZIP [place] [address] (ABNORMAL) POCT Glucose (12/09/2021 6:34 PM EDT) athologist Signature POC Glucose 408 (H) 65 - [facility] Comment: Supplemental ranges: <140 mg/dL before meals <180 mg/dL all other times of the day Specimen Anatomical Collection Method Collection Time Receive d Time (Source) Location / / Volume Laterality Blood 12/09/2021 6:34 PM 2 6:34 EDT PM EDT Iker Cuevas MD POINT OF CARE TEST ORDERABLE S Performing Organization Address City/State/[place] [address] (ABNORMAL) POCT Glucose (12/09/2021 6:32 PM EDT) athologist Signature POC Glucose 356 (H) 65 - [facility]dL [facility] Comment: Supplemental ranges: <140 mg/dL before meals <180 mg/dL all other times of the day Specimen Anatomical Collection Method Collection Time Receive d Time (Source) Location / / Volume Laterality Blood 12/09/2021 6:32 PM 2 6:32 EDT PM EDT Iker Cuevas MD POINT OF CARE TEST ORDERABLE S Performing Organization Address City/State/[place] [address] (ABNORMAL) POCT Glucose (12/09/2021 4:19 PM EDT) athologist Signature POC Glucose 347 (H) 65 - 199 [place] [facility] mg/dL [facility] Comment: Supplemental ranges: <140 mg/dL before meals <180 mg/dL all other times of the day Specimen Anatomical Collection Method Collection Time Receive d Time (Source) Location / / Volume Laterality Blood 12/09/2021 4:19 PM 2 4:19 EDT PM EDT Iker Cuevas MD POINT OF CARE TEST ORDERABLE S Performing Organization Address City/State/[place] [address] Heparin (unfractionated) Level (12/09/2021 1:29 PM EDT) athologist [facility] Heparin UFH 0.42 IU/mL [facility] Comment: Heparin (anti-Xa) levels should be [...] Organization Address City/State/Z[place] [address] (ABNORMAL) POCT Glucose (12/09/2021 12:02 PM EDT) athologist Signature POC Glucose 235 (H) 65 - 199 [facility] mg/dL [facility] Comment: Supplemental ranges: <140 mg/dL before meals <180 mg/dL all other times of the day Specimen Anatomical Collection Method Collection Time Receive d Time (Source) Location / / Volume Laterality Blood 12/09/2021 12:02 12/09/2021 PM EDT 12:02 PM EDT Iker Cuevas MD POINT OF CARE TEST ORDERABLE S Performing Organization Address City/[facility]/ZIP [place] [address] (ABNORMAL) POCT Glucose (12/09/2021 9:44 AM EDT) athologist Signature POC Glucose 214 (H) 65 - 199 [facility] mg/dL [facility] Comment: Supplemental ranges: <140 mg/dL before meals <180 mg/dL all other times of the day Specimen Anatomical Collection Method Collection Time Receive d Time (Source) Location / / Volume Laterality Blood 12/09/2021 9:44 AM 9:44 EDT AM EDT Iker Cuevas MD POINT OF CARE TEST ORDERABLE S Performing Organization Address City/[facility]/ZIP [place] [address] EKG 12 Lead (12/09/2021 7:57 AM EDT) Component Value Ref Range Test Analysis Performed Pathologis t Method Time At Signature Ventricular rate 101 BPM MUSE SYSTEM Atrial Rate 101 BPM MUSE SYSTEM P-R Interval 150 ms MUSE SYSTEM QRS Duration 112 ms MUSE SYSTEM Q-T Interval 364 ms MUSE SYSTEM QTC Calculated 471 ms MUSE SYSTEM (Bezet) Calculated P [place] 59 degrees MUSE SYSTEM Calculated R [place] -42 degrees MUSE SYSTEM Calculated T [place] 102 degrees MUSE SYSTEM INTERPRETATION Sinus tachycardia Occasional Premature ventricular com plexes MUSE SYSTEM Left axis deviation 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) Abnormal ECG When compared with ECG of 08-DEC-2021 16:40, Premature ventricular complexes are now Present Confirmed by MD Fernandez Danette ([id number]) on 12/10/2021 4:55:06 PM Specimen Anatomical Collection Method Collection Time Receive d Time (Source) Location / / Volume Laterality 12/09/2021 7:57 AM 4:55 EDT PM EDT Iker Cuevas MD ECG ORDERABLES Performing Organization Address City/State/ZIP Code Phon e Number MUSE SYSTEM (ABNORMAL) POCT Glucose (12/09/2021 7:28 AM EDT) P athologist Signature POC Glucose 263 (H) 65 - [facility] Comment: Supplemental ranges: <140 mg/dL before meals <180 mg/dL all other times of the day Specimen Anatomical Collection Method Collection Time Receive d Time (Source) Location / / Volume Laterality Blood 12/09/2021 7:28 AM 7:28 EDT AM EDT Iker Cuevas MD POINT OF CARE TEST ORDERABLE S Performing Organization Address City/State/Z[place] [address] (ABNORMAL) Hemoglobin A1c (12/09/2021 6:18 AM EDT) Analysis Performed At Patho logist Time Signature Hemoglobin A1C 7.4 (H) 4.3 - 5.6 [place] [...] Mellitus, Diabetes Care 2013; 36: Suppl. 1, S67-09 Est Avg Gluc See note mg/dL [place] [...] hemoglobinopathies. Additional resources are available on [facility] ADA website. Macario HAMMOND, Ruthann J, Deysi R, et al. ??Tr anslating the A1C assay into estimated average glucose values. ??Diabetes Care 2008:31(8):4458-7448. Specimen Anatomical Collection Method Collection Time Receive d Time (Source) Location / / Volume Laterality Blood Venous Draw / 12/09/2021 6:18 AM 12/10/19 22 Unknown EDT 12:24 PM EDT Resulting Agency Comment Spec In Lab Migdalia BROWN CHEMISTRY ORDERABLES Performing Organization Address City/[facility] [place] [address] (ABNORMAL) Prothrombin Time (12/09/2021 6:18 AM EDT) P athologist Signature PT 26.6 (H) 9.4 - 12.5 [facility] LABORATORY INR 2.3 [facility] [...] Migdalia BROWN HEMATOLOGY ORDERABLES Performing Organization Address [facility]/[place] [address] Heparin (unfractionated) Level (12/09/2021 6:18 AM EDT) P athologist Signature Heparin UFH 0.24 IU/mL [facility] Comment: Heparin (anti-Xa) levels should be [...] Cuevas MD HEMATOLOGY ORDERABLES Performing Organization Address City/[facility]/ZIP Code Phon e Number [address] (ABNORMAL) Differential, Automated (12/09/2021 6:18 AM EDT) Patholo gist Method Time Signature Neutrophils % 91.5 % [facility]OR[facility]ORY Neutr Abs (ANC) 15.78 (H) 1.70 - [facility] 6.10 [facility] x10(3)/[facility] LABORATORY Lymphocytes % 2.9 % [facility]OR[facility]ORY Lymphocytes Abs 0.5 (L) 0.9 - 3.2 [facility] x10(3)/[facility] LABORATORY Monocytes % 4.9 % [facility]OR[facility]ORY Monocyte Abs 0.8 0.3 - 0.9 [facility] x10(3)/[facility] LABORATORY Eosinophils % 0.0 % [facility]OR[facility]ORY Eosinophils Abs 0.0 0.0 - 0.4 [facility] x10(3)/[facility] LABORATORY Basophils % 0.2 % [facility] LABORATORY Basophils Abs 0.0 0.0 - 0.1 [facility] x10(3)/[facility] LABORATORY Immature [...] City/State/[place] [address] (ABNORMAL) Hemogram (12/09/2021 6:18 AM EDT) Analysis Performed At Patho logist Time Signature WBC 17.2 (H) 4.0 - 9.5 [facility] x10(3)/[facility] LABORATORY RBC 4.32 (L) 4.58 - [facility] 5.54 [facility] x10(6)/[facility] LABORATORY Hemoglobin 12.6 (L) 13.7 - [facility] 16.[facility] g/dL [facility] Hematocrit 38.9 (L) 40.5 - [facility] 48.5 % [facility] MCV 90.0 82.9 - [facility] 93.1 fL [facility] MCH 29.2 27.5 - [facility] 32.1 pg [facility] MCHC 32.4 32.0 - [facility] 35.7 g/dL [facility] Platelets 193 145 - 357 [facility] x10(3)/[facility] LABORATORY RDWSD 50.4 (H) 36.0 - [facility] 45.0 [facility] LABORATORY RDWCV 15.2 (H) 11.4 - [facility] 13.8 % [facility] MPV 9.5 7.6 - 12.9 [facility] LABORATORY nRBC % Auto 0.0 % [facility] LABORATORY nRBC Abs Auto 0.000 0.000 - [facility] 0.000 [facility] x10(3)/[facility] LABORATORY Specimen Anatomical Collection Method Collection Time Receive d Time (Source) Location / / Volume Laterality Blood 12/09/2021 6:18 AM 6:33 EDT AM EDT Resulting Agency Comment Spec In Lab Morgan BROWN HEMATOLOGY ORDERABLES Performing Organization Address City/State/[place] [address] Lipid Panel (Reflex Direct LDL) (12/09/2021 6:18 AM EDT) P athologist Signature Chol, Total 105 mg/dL [facility] Comment: Lower Risk: <200 mg/dL Average Risk: 200-239 mg/dL Higher Risk: >je=837 mg/dL Triglycerides 133 mg/dL [facility] Comment: Average Risk/Lower Risk: <150 mg/dL Borderline High Risk: 150-199 mg/dL High Risk: 200-499 mg/dL Very High Risk: >pc=526 mg/dL HDL 42 mg/dL [facility] Comment: Males: ?? Higher Risk: <40 mg/dL Females: ?? Higher Risk: <50 mg/dL LDL Cholesterol 36 mg/dL [facility] Comment: Lowest Risk: <100 mg/dL Lower Risk: 100-129 mg/dL Borderline High Risk: 130-159 mg/dL High Risk: 160-189 mg/dL Very High Risk: >xz=884 mg/dL Chol/HDL Ratio 2.5 ratio [facility] Lipid Interpretation See Note [facility] Comment: Lipid management should be guided by a p atient? s ASCVD risk, goals and preferences. ACC/AHA Guidelines recommend high intens ity statin if clinical ASCVD or LDL greater than or equal to 190 mg/dL. http://[email or web address].com/GFO-SCX-[email or web address] Adults aged 40-75 with LDL 70-189 mg/dL should have their 10 year ASCVD risk estimated with the ACC/AHA ASCVD risk es timator http://tools.acc.org/UODID-Zloz-Bcrqagmf r/ Statin should be discussed if risk [...] Organization Address City/State/Z[place] [address] TSH (12/09/2021 6:18 AM EDT) P athologist Signature TSH 1.60 0.27 - 4.20 [facility] mcIU/mL [facility] Comment: Reference Interval (mcIU/mL): Females: ??First Trimester: 0.23-3.88 ??Second Trimester: 0.22-3.90 ??Third Trimester: 0.44-4.66 Specimen Anatomical Collection Method Collection Time Receive d Time (Source) Location / / Volume Laterality Blood 12/09/2021 6:18 AM 2 6:33 EDT AM EDT Resulting Agency Comment Spec In Lab Iker Cuevas MD CHEMISTRY ORDERABLES Performing Organization Address City/State/Z[place] [address] Hepatic Function Panel (12/09/2021 6:18 AM EDT) athologist Signature Total Protein 7.3 6.1 - 8.0 [facility] g/dL [facility] Albumin 4.2 3.2 - 5.2 [facility] g/dL [facility] AST 25 0 - 39 [facility] unit/L [facility] ALT 15 0 - 55 [facility] unit/L [facility] Alk Phos 75 40 - 130 [facility] unit/L [facility] Total 1.1 0.2 - 1.[facility] Bil[facility] mg/dL [facility] Bili, Direct 0.2 0.0 - 0.3 [facility] mg/dL [facility] Specimen Anatomical Collection Method Collection Time Receive d Time (Source) Location / / Volume Laterality Blood 12/09/2021 6:18 AM 6:33 EDT AM EDT Resulting Agency Comment Spec In Lab Iker Cuevas MD CHEMISTRY ORDERABLES Performing Organization Address City/State/Z[place] [address] (ABNORMAL) BMP w/fasting Glucose (12/09/2021 6:18 AM EDT) athologist Signature Glucose 235 (H) 65 - 99 [facility] Fasting mg/dL [facility] Comment: ?Fasting* Glucose Interpretive C [...] of Diabetes Mellitus, Position Statement from the [place] [employer]. ??Diabete s Care, Volume 33, Supplement 1, Jul 2009 BUN 49 (H) 10 - 20 mg/dL [facility] Creatinine 1.33 0.80 - 1.50 mg/dL [facility] Sodium 139 135 - 145 mmol/L [facility] Potassium 4.2 3.5 - 5.0 mmol/L [facility] mmol/L [facility] Calcium 8.8 8.5 - 10.5 mg/dL [facility] Estimated GFR 52 (L) >=60 [...] City/State/[place] [address] Magnesium (12/09/2021 6:18 AM EDT) athologist Signature Magnesium 0.81 0.69 - 1.07 [facility] mmol/L [facility] Specimen Anatomical Collection Method Collection Time Receive d Time (Source) Location / / Volume Laterality Blood 12/09/2021 6:18 AM 2 6:33 EDT AM EDT Resulting Agency Comment Spec In Lab kIer Cuevas MD CHEMISTRY ORDERABLES Performing Organization Address City/State/ZIP Code Phon e Number [facility] [address] (ABNORMAL) Troponin (12/09/2021 6:18 AM EDT) athologist Signature Troponin-T 1.13 (H) 0.00 - [facility] 0.00 ng/mL [facility] Comment: The 99th percentile for [...] additional sample may be indicated. Reference: Third [place] Definition of Myocardial Infarction. Journal of the [place] [employer] 2012;60:1581-98 Specimen Anatomical Collection Method Collection Time Receive d Time (Source) Location / / Volume Laterality Blood 12/09/2021 6:18 AM 6:33 EDT AM EDT Resulting Agency Comment Spec In Lab Iker Cuevas MD CHEMISTRY ORDERABLES Performing Organization Address City/State/ZIP [place] [address] XR Chest One View [...] questions please contact the health patient care representative that requested your imaging first. ? Narrative [...] questions please contact the health patient care representative that requested your imaging first. Amber Sanches MD IMG DX ORDERABLES (ABNORMAL) BLOOD GAS 2 ARTERIAL (12/09/2021 5:14 AM EDT) Analysis Performed At Patho logist Time Signature pH Art 7.43 7.35 - [facility] 7.45 [facility] pCO2 Art 36 35 - 45 [facility] mmHg [facility] pO2 Art 67 (L) 85 - 104 [facility] mmHg [facility] HCO3 Art 23.4 20.0 - [facility] 26.0 [facility] mmol/L [facility] BE Art -0.9 -3.0 - 3.0 [facility] mmol/L [facility] Hgb Blood Gas 13.2 (L) 13.7 - [facility] 16.5 g/dL [facility] O2HB Art 91.3 (L) 94.0 - [facility] 97.0 % [facility] COHB Art 0.4 % [place] [...] Bld 223 (H) 65 - 199 mg/dL [facility] Comment: Diabetes: >=200 mg/dL plus symp toms. Lactate WB 2.7 (H) 0.5 - 2.2 mmol/L [facility]ORY FIO2 Art 35 % [facility] Flow Art 8.0 LPM [facility] PF Ratio Art 191 [facility] LABORATORY Specimen Anatomical Collection Method Collection Time Receive d Time (Source) Location / / Volume Laterality Blood 12/09/2021 5:14 AM 2 5:14 EDT AM EDT Iker Cuevas MD CHEMISTRY ORDERABLES Performing Organization Address City/[facility]/ZIP [place] [address] POCT Glucose (12/09/2021 4:46 AM EDT) P athologist Signature POC Glucose 198 65 - 199 [facility] mg/dL [facility] Comment: Supplemental ranges: <140 mg/dL before meals <180 mg/dL all other times of the day Specimen Anatomical Collection Method Collection Time Receive d Time (Source) Location / / Volume Laterality Blood 12/09/2021 4:46 AM 2 4:46 EDT AM EDT Iker Cuevas MD POINT OF CARE TEST ORDERABLE S Performing Organization Address City/State/ZIP [place] [address] (ABNORMAL) POCT Glucose (12/09/2021 3:01 AM EDT) athologist Signature POC Glucose 225 (H) 65 - 199 [facility] Comment: Supplemental ranges: <140 mg/dL before meals <180 mg/dL all other times of the day Specimen Anatomical Collection Method Collection Time Receive d Time (Source) Location / / Volume Laterality Blood 12/09/2021 3:01 AM 3:01 EDT AM EDT Iker Cuevas MD POINT OF CARE TEST ORDERABLE S Performing Organization Address City/State/ZIP Code Phon e Number [address] (ABNORMAL) POCT Glucose (12/08/2021 10:55 PM EDT) athologist Signature POC Glucose 327 (H) 65 - 199 [facility] mg/dL [facility] Comment: Supplemental ranges: <140 mg/dL before meals <180 mg/dL all other times of the day Specimen Anatomical Collection Method Collection Time Receive d Time (Source) Location / / Volume Laterality Blood 12/08/2021 10:55 12/08/2021 PM EDT 10:55 PM EDT Iker Cuevas MD POINT OF CARE TEST ORDERABLE S Performing Organization Address City/State/ZIP [place] [address] Heparin (unfractionated) Level (12/08/2021 10:03 PM EDT) athologist Signature Heparin UFH 0.18 IU/mL [facility]ORY Comment: Heparin (anti-Xa) levels should be [...] City/State/[place] [address] (ABNORMAL) Troponin (12/08/2021 10:03 PM EDT) athologist Signature Troponin-T 0.92 (H) 0.00 - [facility] 0.00 ng/mL [facility] Comment: The 99th percentile for [...] additional sample may be indicated. Reference: Third [place] Definition of Myocardial Infarction. Journal of the [place] [employer] 2012;60:1581-98 Specimen Anatomical Collection Method Collection Time Receive d Time (Source) Location / / Volume Laterality Blood 12/08/2021 10:03 12/08/2021 PM EDT 10:31 PM EDT Resulting Agency Comment Spec In Lab Iker Cuevas MD CHEMISTRY ORDERABLES Performing Organization Address City/[facility]/ZIP [place] [address] (ABNORMAL) POCT Glucose (12/08/2021 8:22 PM EDT) P athologist Signature POC Glucose 429 (H) 65 - [facility] Comment: Supplemental ranges: <140 mg/dL before meals <180 mg/dL all other times of the day Specimen Anatomical Collection Method Collection Time Receive d Time (Source) Location / / Volume Laterality Blood 12/08/2021 8:22 PM 2 8:22 EDT PM EDT Iker Cuevas MD POINT OF CARE TEST ORDERABLE S Performing Organization Address [facility]/ZIP [place] [address] (ABNORMAL) POCT Glucose (12/08/2021 7:06 PM EDT) athologist Signature POC Glucose 442 (H) 65 - 199 [facility] mg/dL [facility] Comment: Supplemental ranges: <140 mg/dL before meals <180 mg/dL all other times of the day Specimen Anatomical Collection Method Collection Time Receive d Time (Source) Location / / Volume Laterality Blood 12/08/2021 7:06 PM 2 7:06 EDT PM EDT Iker Cuevas MD POINT OF CARE TEST ORDERABLE S Performing Organization Address City/[facility]/ZIP [place] [address] Magnesium (12/08/2021 6:02 PM EDT) P athologist Signature Magnesium 0.86 0.69 - 1.07 [facility]L [facility] Specimen Anatomical Collection Method Collection Time Receive d Time (Source) Location / / Volume Laterality Blood 12/08/2021 6:02 PM 2 6:36 EDT PM EDT Resulting Agency Comment Spec In Lab Iker Cuevas MD CHEMISTRY ORDERABLES Performing Organization Address City/State/[place] [address] (ABNORMAL) Basic Metabolic Panel (non-fasting) (12/08/2021 6:02 PM EDT) P athologist Signature Glucose Lvl 392 (H) 65 - 199 [facility] mg/dL [facility] Comment: Diabetes: >=200 mg/dL plus symp toms BUN 41 (H) 10 - 20 mg/dL [facility]ORY Creatinine 1.44 0.80 - 1.50 mg/dL [facility] Sodium 138 135 - 145 mmol/L [facility] [...] Gap 16 (H) 5 - 15 mmol/L [facility]ORATORY Calcium 8.6 8.5 - 10.5 mg/dL [facility]ORY Estimated GFR 47 (L) >=60 [...] City/State/[place] [address] (ABNORMAL) Differential, Automated (12/08/2021 6:02 PM EDT) [facility] gist Method Time Signature Neutrophils % 89.5 % [facility] LABORATORY Neutr Abs (ANC) 13.97 (H) 1.70 - [facility] 6.10 [facility] x10(3)/[facility] LABORATORY Lymphocytes % 3.7 % [facility] LABORATORY Lymphocytes Abs 0.6 (L) 0.9 - 3.2 [facility] x10(3)/[facility] LABORATORY Monocytes % 6.1 % [facility] LABORATORY Monocyte Abs 1.0 (H) 0.3 - 0.9 [facility] x10(3)/[facility] LABORATORY Eosinophils % 0.0 % [facility] LABORATORY Eosinophils Abs 0.0 0.0 - 0.4 [facility] x10(3)/[facility] LABORATORY Basophils % 0.2 % [facility] LABORATORY Basophils Abs 0.0 0.0 - 0.1 [facility] x10(3)/[facility] LABORATORY Immature [...] Organization Address City/State/ZIP [place] [address] (ABNORMAL) Hemogram (12/08/2021 6:02 PM EDT) Analysis Performed At Patho logist Time Signature WBC 15.6 (H) 4.0 - 9.5 [facility] LABORATORY RBC 4.05 (L) 4.58 - [facility] 5.54 [facility] x10(6)/[facility] LABORATORY Hemoglobin 11.8 (L) 13.7 [facility] 16.5 g/dL [facility] Hematocrit 35.8 (L) 40.5 [facility] 48.5 % [facility] MCV 88.4 82.9 - [facility] 93.1 [facility] LABORATORY MCH 29.1 27.5 - [facility] 32.1 pg [facility] MCHC 33.0 32.0 [facility] 35.7 g/dL [facility] Platelets 178 145 - 357 [facility] x10(3)/[facility] LABORATORY RDWSD 49.3 (H) 36.0 - [place] [facility] 45.0 [facility] LABORATORY RDWCV 15.1 (H) 11.4 - [facility] 13.8 % [facility] MPV 10.4 7.6 - 12.9 [facility] LABORATORY nRBC % Auto 0.0 % [facility] LABORATORY nRBC Abs Auto 0.000 0.000 - [facility] 0.000 [facility] x10(3)/[facility] LABORATORY Specimen Anatomical Collection Method Collection Time Receive d Time (Source) Location / / Volume Laterality Blood 12/08/2021 6:02 PM 2 6:36 EDT PM EDT Resulting Agency Comment Spec In Lab Morgan BROWN HEMATOLOGY ORDERABLES Performing Organization Address City/State/ZIP [place] [address] (ABNORMAL) Troponin (12/08/2021 6:02 PM EDT) P athologist Signature Troponin-T 0.89 (H) 0.00 - [place] [facility] 0.00 ng/mL [facility] Comment: The 99th percentile for [...] additional sample may be indicated. Reference: Third [place] Definition of Myocardial Infarction. Journal of the [place] [employer] 2012;60:1581-98 Specimen Anatomical Collection Method Collection Time Receive d Time (Source) Location / / Volume Laterality Blood 12/08/2021 6:02 PM 2 6:36 EDT PM EDT Resulting Agency Comment Spec In Lab Iker Cuevas MD CHEMISTRY ORDERABLES Performing Organization Address City/State/[place] [address] COVID-19 PCR (12/08/2021 5:00 PM EDT) Patholo gist Method Time Signature SARS-CoV-2 Not Detected Not Detected BARBARA RNA PCR [facility] Comment: This result should [...] using the Simplexa COVID-19 Direct Assay by MindQuiltjoi marcum as authorized by the FDA issued [...] Pathology and Laboratory Medicine at [facility], certified under the Clinical Laboratory Improvement [...] fact sheets at the following FDA website: https://www.fda.gov/medical-devices/decjjdcodju-dzhasnm-3078-bpnwq-04-bpwxnxkvh- tab-myjpffgjexddlw-snuuvco-devices/hlszd-qzsrhasmusz-ojty SARS-CoV-2 Source TWISTER OPERATOR Swab [facility] Specimen (Source) Anatomical Collection Method Collection Time Re ceived Time Location / / Volume Laterality Nasopharyngeal Swab 12/08/2021 5:00 12/08 PM EDT 6:03 PM EDT Comment: Symptoms->Surveillance Resulting Agency Comment Spec In Lab Iker Cuevas MD MICROBIOLOGY - GENERAL ORDER [place] Performing Organization Address City/[facility]/[place] [address] EKG 12 Lead (12/08/2021 4:40 PM EDT) Component Value Ref Range Test Analysis Performed Pathologis t Method Time At Signature Ventricular rate 78 BPM MUSE SYSTEM Atrial Rate 78 BPM MUSE SYSTEM P-R Interval 152 ms MUSE SYSTEM QRS Duration 96 ms MUSE SYSTEM Q-T Interval 396 ms MUSE SYSTEM QTC Calculated 451 ms MUSE SYSTEM (Bezet) Calculated P [place] 44 degrees MUSE SYSTEM Calculated R [place] -31 degrees MUSE SYSTEM Calculated T [place] 124 degrees MUSE SYSTEM INTERPRETATION Normal sinus [...] Cuevas MD ECG ORDERABLES Performing Organization Address City/[facility]/ZIP Code Phon e Number MUSE SYSTEM (ABNORMAL) POCT Glucose (12/08/2021 4:34 PM EDT) P athologist Signature POC Glucose 400 (H) 65 - 199 [facility] mg/dL [facility] Comment: Supplemental ranges: <140 mg/dL before meals <180 mg/dL all other times of the day Specimen Anatomical Collection Method Collection Time Receive d Time (Source) Location / / Volume Laterality Blood 12/08/2021 4:34 PM 2 4:34 EDT PM EDT Iker Cuevas MD POINT OF CARE TEST ORDERABLE S Performing Organization Address City/State/[place] [address] documented in this encounter [...] Coronary atherosclerosis of unspecified type of vessel, [place] or graft Cardiomyopathy, ischemic Other specified forms of chronic ischemi c heart disease Chronic systolic heart failure documented in [...] Ivis 12/11/21 at 0915, Until Discontinued, Routine furosemide (Lasix) [...] MEALS, First dose (after last modification) on Ivis 12/11/21 at 1730, Until Discontinued, MEAL ASSOCIATED Give 1 unit: 3 grams of carbohydrate Hold if not eating or if BG less than 70 mg/dL., Routine Given 12/11/2021 5:16 PM EDT 10 Units insulin lispro (HumaLOG;Admelog) (100 Given 12/09/2021 1:24 PM E DT 3 Units unit/mL) subcutaneous injection vial 0-8 Units 0-8 Units, Subcutaneous, 3 TIMES DAILY WITH MEALS, First dose on [facility] 12/08/21 at 1730, Until Discontinued, MEAL [...] RN) 0828 (Given - Provider: Lilliana Esteban, VASMI) 81 mg, Oral, DAILY, First dose on [...] Units (CANCELED) 2032 (Given - Provider: Barbara Boogie, VAMSI) 35 Units, Subcutaneous, NIGHTLY, First d ose (after last modification) on Wed12/10/21 at 2100, Until Discontinued, Routine insulin glargine-ygfn (Semglee) (100 uni t/mL) subcutaneous injection vial 42 Units 2041 (Given - Provider: Derrick Galeas, VAMSI) 42 Units, Subcutaneous, NIGHTLY, First d ose [...] Emma Garcia RN)1717 (Given - Provider: Emma Garcia RN) 0001 (Given - Provider: Derrick Galeas, VAMSI)0631 (Given - Provider: Derrick Galeas, VAMSI) 12.5 mg, Oral, EVERY 6 HOURS SCHEDULED, First dose on Wed12/08/21 at 1800, Until Discontinued, Routine 1744 (Given - Provider: Emma Garcia, VAMSI )2345 (Given - Provider: Barbara Boogie RN) [...] Garcia RN) 0900 (Hold - Provider: Lilliana Esteban, VAMSI [...] Garcia, VAMSI) 0900 (Given - Provider: Emma Garcia RN )2040 (Given - Provider: Derrick Galeas RN) [...] (Given - P rovider: Emma Garcia RN) 08 (Given - Provider: Lilliana Esteban RN) 40 mg, Oral, DAILY, First dose on Ivis at 0930, Until Discontinued, Routine PRN Medication Order 12/10/2021 12/11/2021 12/12/2021 acetaminophen (Tylenol) tablet 650 mg 0805 ([facility] Hold - Provider: Admin Adt - Reason: Transfer to a Procedural area)123 ([facility] Unhold - Provider: Admin Adt) 650 [...] - Reason: Transfer to a Procedural area)1230 ([facility] Unhold - Provider: Admin Adt) 10 mg, Rectal, DAILY PRN, Starting on Tu e 12/09/21 at 1629, Until Wed12/12/21 at 1312, Constipation, Routine dextrose 10% infusion(Linked Group 2) 08 ([facility] Hold - Provider: Admin Adt - [...] Buccal, EVERY 30 MIN PRN, Starting on 12/08/21 at 1639, Until Wed12/12/21 at 1312, Low [...] heparin (porcine) (1,000 units/mL) injection (CANCELED ) 09 (Given - Provider: Mendy Schaffer)0918 (Given - Provider: Mendy Schaffer)0933 (Given - Provider: Mendy Schaffer)0952 (Given - Provider: Mendy Schaffer) ONCE PRN, Starting on Wed12/10/21 at 090 7, Until Wed12/10/21 at 1230, Cath (Intra-Procedure), Routine insulin regular (HumuLIN R,NovoLIN R) (100 unit/mL) in jection vial (CANCELED) 09 (Given - Provider: Shirin Melgoza RN) ONCE [...] (Intra-Procedure), Routine niCARdipine (Cardene) (100 mcg/mL) dilution (ASSURANCE SENIOR MANAGER INSURANCE) (CANCELED) 1030 (Given - Provider: Vitaliy Nobles [...] area)1230 ([facility] Unhold - Provider: Admin Adt) 5-20 mL, [...] episode. & nbsp; For persistent hypoglycemia, con fell cutter longer-acting treatment for the duration of the [...]
Routine documented in this encounter Care Teams Tax Audit Manager Relationship Specialty Start Date End Date Lovely Vicente MD PCP - General 04/16/[address] [place] [address] documented as of this encounter
--- OUTSIDE RECORDS SUMMARY | 2022-02-18 08:12 | XMS_ITS | Encounter Summary ---
:1945 Author Organization [facility] [place] [address] Care Team Providers Name Role Phone Lovely Vicente MD Primary Care Provider Encounter Details Date Type Department Care Team Description 12/15/2021 Telephone [place] [facility] Barbara Mera, [place] [address] Social History Tobacco Use Types Packs/Day [...] Poole PA [facility] Cardiology Dept [place], [place] 0[address] (Wo rk) 03/26/2022 Office Visit Cardiology Vitaliy Nobles MD [facility] CARDIOLOGY [place], [place] [address] (Wo rk) documented as of this encounter Visit Diagnoses Not on filedocumented in this encounter Care Teams Corporate Event Planner Relationship Specialty Start Date End Date Lovely Vicente MD PCP - General 04/16/15 [facility] [address] [place] [address] documented as of this encounter
--- OUTSIDE RECORDS SUMMARY | 2022-02-18 08:12 | XMS_ITS | Encounter Summary ---
:1945 Author Organization [place] [address] Care Team Providers Name Role Phone Lovely Vicente MD Primary Care Provider Encounter Details Date Type Department Care Team Description 12/25/2021 Laboratory Appointment Lab 3L [facility] [place] [facility] systolic [facility] [place] [id number] Social History Tobacco Use Types Packs/Day Years [...] Liz Poole PA [facility] er Cardiology Dept [place], [place] [address] (Wo rk) 03/26/2022 Office Visit Cardiology Vitaliy Nobles MD [facility] CARDIOLOGY [place], [place] [address] (Wo rk) documented as of [...] (ABNORMAL) Differential, Automated (12/25/2021 7:46 AM EDT) [facility] Method Time Signature Neutrophils % 82.6 % [facility] Neutr Abs (ANC) 9.37 (H) 1.70 - [facility] 6.10 [facility] x10(3)/[facility] L LABORATORY Lymphocytes % 7.1 % [facility] Lymphocytes Abs 0.8 (L) 0.9 - 3.2 [facility] x10(3)/[facility] LABORATORY Monocytes % 8.8 % [facility] Monocyte Abs 1.0 (H) 0.3 - 0.9 [facility] x10(3)/[facility] LABORATORY Eosinophils % 0.4 % [facility] Eosinophils Abs 0.0 0.0 - 0.4 [facility] x10(3)/[facility] LABORATORY Basophils % 0.4 % [facility] Basophils Abs 0.0 0.0 - 0.1 [facility] x10(3)/[facility] LABORATORY Immature Gran % 0.70 % [...] Abs 0.08 (H) 0.00 - 0.04 x10(3)/[facility] LABORATORY Specimen Anatomical Collection Method Collection Time Receive d Time (Source) Location / / Volume Laterality Blood 12/25/2021 7:46 AM 2 8:01 EDT AM EDT Resulting Agency Comment Spec In Lab Liz BROWN HEMATOLOGY ORDERABLES Performing Organization Address City/State/[place] [address] (ABNORMAL) Hemogram (12/25/2021 7:46 AM EDT) Analysis Performed At Patho logist Time Signature WBC 11.4 (H) 4.0 - 9.5 [facility] x10(3)/[facility] LABORATORY RBC 4.23 (L) 4.58 - [facility] 5.54 [facility] x10(6)/[facility] LABORATORY Hemoglobin 12.3 (L) 13.7 - [facility] 16.5 g/dL [facility] Hematocrit 37.7 (L) 40.5 - [facility] 48.5 % [facility] MCV 89.1 82.9 - [facility] 93.1 [facility] LABORATORY MCH 29.1 27.5 - [facility] 32.1 pg [facility] MCHC 32.6 32.0 - [facility] 35.7 g/dL [facility] Platelets 215 145 - 357 [facility] x10(3)/[facility] LABORATORY RDWSD 49.8 (H) 36.0 - [facility] RYAN 45.0 [facility] LABORATORY RDWCV 15.2 (H) 11.4 - [facility] RYAN 13.8 % [facility] LABORATORY MPV 9.2 7.6 - 12.9 [facility] LABORATORY nRBC % Auto 0.0 % [facility] nRBC Abs Auto 0.000 0.000 - [facility] RYAN 0.000 [facility] x10(3)/[facility] LABORATORY Specimen Anatomical Collection Method Collection Time Receive d Time (Source) Location / / Volume Laterality Blood 12/25/2021 7:46 AM 2 8:01 EDT AM EDT Resulting Agency Comment Spec In Lab Liz BROWN HEMATOLOGY ORDERABLES Performing Organization Address City/State/[place] [address] (ABNORMAL) Basic Metabolic Panel (non-fasting) (12/25/2021 7:46 AM EDT) P athologist Signature Glucose Lvl 272 (H) 65 - 199 [facility] mg/dL [facility] Comment: Diabetes: >=200 mg/dL plus symp toms BUN 62 (H) 10 - 20 mg/dL [facility] Creatinine 1.81 (H) 0.80 - 1.50 mg/dL [facility] Sodium 134 (L) 135 - 145 mmol/L [facility] Potassium 4.9 3.5 - 5.0 mmol/L [facility] Comment: Please note: ??Patients with WBC >100,00 0 may have falsely elevated Potassium levels. ??For accurate Potassium quantif ication in these patients send serum separator tube (gold top) for subsequent determinations. ??Contact the Clinical Chemistry Laboratory if there are any qu estions. Chloride 95 (L) 98 - 107 mmol/L [facility] CO2 28 22 - 31 mmol/L [facility] Anion Gap 11 5 - 15 mmol/L [facility] Calcium 9.4 8.5 - 10.5 mg/dL [facility] Estimated GFR 36 (L) >=60 mL/min/1.73 m?? [facility] [...] Organization Address City/State/[place] [address] (ABNORMAL) pro-Brain Natriuretic Peptide (12/25/2021 7:46 AM EDT) P athologist Signature ProBNP 1,380 (H) <=124 [facility] pg[facility]mL [facility] Specimen Anatomical Collection Method Collection Time Receive d Time (Source) Location / / Volume Laterality Blood 12/25/2021 7:46 AM 2 8:01 EDT AM EDT Resulting Agency Comment Spec In Lab Zulma Plunkett MD CHEMISTRY ORDERABLES Performing Organization Address City/State/[place] [address] documented in this encounter Visit Diagnoses Diagnosis Chronic systolic heart failure Chronic systolic heart failure documented in this encounter Care Teams Live Games Dealer Relationship Specialty Start Date End Date Lovely Vicente MD PCP - General 04/16/[address] [place] [address] documented as of this encounter
--- OUTSIDE RECORDS SUMMARY | 2022-02-18 08:12 | XMS_ITS | Encounter Summary ---
:1945 Author Organization [facility] [place] [address] Care Team Providers Name Role Phone Lovely Vicente MD Primary Care Provider Reason for Visit Reason Onset Date Comments Medication Refill 12/12/2021 Torsemide Encounter Details Date Type Department Care Team Description 12/12/2021 Refill Cardiology at [facility] Janneth Padilla, Medication Refill [facility] STEPHANIE (Torsemide) [place] [address] CARDIOLOGY DEPT. [place], [place] [address] (Wo rk) Social History Tobacco [...] [facility] er Cardiology Dept [place], [place] [address] (Wo rk) 03/26/2022 Office Visit Cardiology Vitaliy Nobles MD [facility] CARDIOLOGY [place], [place] [address] (Wo rk) documented as of this encounter Visit Diagnoses Diagnosis Chronic systolic heart failure Chronic systolic heart failure documented in this encounter Care Teams Aviation Electrician Relationship Specialty Start Date End Date Lovely Vicente MD PCP - General 04/16/[address] [place] [address] documented as of this encounter
--- OUTSIDE RECORDS SUMMARY | 2022-02-18 08:13 | XMS_ITS | Encounter Summary ---
:1945 Author Organization [facility] [place] [address] Care Team Providers Name Role Phone Lovely Vicente MD Primary Care Provider Encounter Details Date Type Department Care Team Description 07/28/2019 Laboratory Appointment Lab 3L [facility] systolic [facility] [place] [address] Social History Tobacco Use Types Packs/Day Years [...] Poole PA [facility] er Cardiology Dept [place], [place] [address] (Wo rk) 03/26/2022 Office Visit Cardiology Vitaliy Nobles MD [facility] ER CARDIOLOGY [place], [place] [address] (Wo rk) documented as of [...] athologist Signature ProBNP 647 (H) <=125 pg/mL [facility] Specimen Anatomical Collection Method Collection Time Receive d Time (Source) Location / / Volume Laterality Blood specimen 07/28/2019 8:36 AM 020 8:46 (specimen) EST AM EST Resulting Agency Comment Spec In Lab Danette Maxwell APRN CHEMISTRY ORDERABLES Performing Organization Address City/State/ZIP Code Phon e Number [place] [id number] [address] (ABNORMAL) Basic Metabolic Panel (non-fasting) (07/28/2019 8:36 AM EST) P athologist Signature Glucose Lvl 153 65 - 199 [facility] mg/dL [facility] Comment: Diabetes: >=200 mg/dL plus symp toms BUN 22 (H) 10 - 20 mg/dL [facility] Creatinine 1.05 0.80 - 1.50 mg/dL [facility] Sodium 141 135 - 145 mmol/L [facility] Potassium 4.5 3.5 - 5.0 mmol/L [facility] [...] Anion Gap 12 5 - 15 mmol/L [facility] Calcium 9.3 8.5 - 10.5 mg/dL [facility] Estimated GFR 70 >=60 mL/min/1.73 m?? [facility] Comment: The eGFR was calculated using the CKD-EP I equation. As with all creatinine based estimates of kidney function, eGFR values calculated with the CKD-EPI equation are not accurate in patients wi th acute kidney failure, extremes of body mass or the acutely ill. http://[employer] OKLA[facility] CITYnkf eGFR 81 >=60 mL/min/1.73 m?? [facility] Comment: The eGFR was calculated using the CKD-EP I equation. As with all creatinine based estimates of kidney function, eGFR values calculated with the CKD-EPI equation are not accurate in patients wi th acute kidney failure, extremes of body mass or the acutely ill. http://[employer] OK[facility] CITYnkf Specimen Anatomical Collection Method Collection Time Receive d Time (Source) Location / / Volume Laterality Blood specimen 07/28/2019 8:36 AM 020 8:46 (specimen) EST AM EST Resulting Agency Comment Spec In Lab Danette Maxwell APRN CHEMISTRY ORDERABLES Performing Organization Address City/State/ZIP Code Phon e Number [place] [phone] documented in this encounter Visit Diagnoses Diagnosis Chronic systolic heart failure Chronic systolic heart failure documented in this encounter Care Teams Director Of Reservations Relationship Specialty Start Date End Date Lovely Vicente MD PCP - General 04/16/[address] [place] [address] documented as of this encounter
--- OUTSIDE RECORDS SUMMARY | 2022-02-18 08:13 | XMS_ITS | Encounter Summary ---
:1945 Author Organization [facility] [address] Care Team Providers Name Role Phone Lovely Vicente MD Primary Care Provider Reason for Visit Reason Onset Date Comments Other 03/24/2019 cardiac clearance ne eded Encounter Details Date Type Department Care Team Description 03/24/2019 Telephone Cardiology at [facility] Danette Maxwell, Other (cardiac [facility] HYDRAULIC PRESS TENDER clearance needed) [place] [address] CARDIOLOGY [place], [place] [address] (Wo rk) Social History Tobacco [...] AM EDT Leonela from [facility] [place] called requesting cardiac clearance for this patient who is to have a colonoscopy on 04/04/19. He is on anticoagulation and they will need to bridge him. Their phone # [phone], fax# [phone]. Thank you. documented in this encounter Plan of Treatment Upcoming Encounters Date Type Specialty Care Team Description 02/19/2022 Laboratory Appointment Lab 02/19/2022 Office Visit Cardiology Liz Poole PA [facility] Cardiology Dept [place], [place] [address] (Wo rk) 03/26/2022 Office Visit Cardiology Vitaliy Nobles MD [facility] CARDIOLOGY [place], [place] [address] (Wo rk) documented as of this encounter Visit Diagnoses Not on filedocumented in this encounter Care Teams Brazing Machine Operator Relationship Specialty Start Date End Date Lovely Vicente MD PCP - General 04/16/[address] [place] [address] documented as of this encounter
--- OUTSIDE RECORDS SUMMARY | 2022-02-18 08:13 | XMS_ITS | Encounter Summary ---
:1945 Author Organization [facility] [place] [address] Care Team Providers Name Role Phone Lovely Vicente MD Primary Care Provider Encounter Details Date Type Department Care Team Description 03/20/2021 Ancillary Procedure Radiology Library [place] [address] [place] [address] [phone] Social History Tobacco Use Types Packs/Day Years [...] PA [facility] er Cardiology Dept [place], [place] [address] (Wo rk) 03/26/2022 Office Visit Cardiology Vitaliy Nobles MD [facility] CARDIOLOGY [place], [place] [address] (Wo rk) documented as of [...] Organization Address City/State/ZIP Code Phon e Number [place], [place] documented in this encounter Visit Diagnoses Not on filedocumented in this encounter Care Teams House Manager Relationship Specialty Start Date End Date Lovely Vicente MD PCP - General 04/16/[address] [place] [address] documented as of this encounter
--- OUTSIDE RECORDS SUMMARY | 2022-02-18 08:13 | XMS_ITS | Encounter Summary ---
:1945 Author Organization [facility] [place] [address] Care Team Providers Name Role Phone Lovely Vicente MD Primary Care Provider Encounter Details Date Type Department Care Team Description 12/08/2021 External Results Non-Invasive Cardiology Lab Mar y None [facility] [place] [address] Social History Tobacco Use Types Packs/Day [...] PA [facility] er Cardiology Dept [place], [place] [address] (Wo rk) 03/26/2022 Office Visit Cardiology Vitaliy Nobles MD [facility] ER CARDIOLOGY [place], [place] [address] (Wo rk) documented as of [...] on filedocumented in this encounter Care Teams Office Director Relationship Specialty Start Date End Date Lovely Vicente MD PCP - General 04/16/[address] [place] [address] documented as of this encounter
--- OUTSIDE RECORDS SUMMARY | 2022-02-18 08:13 | XMS_ITS | Encounter Summary ---
:1945 [place] [address] Care Team Providers Name Role Phone Lovely Vicente MD Primary Care Provider Reason for Visit Reason Comments Skin Cancer Examination Encounter Details Date Type Department Care Team Description 03/20/2021 Office Visit Dermatology at [facility] Brennen Rene MD History of melanoma; [facility] History of dysplastic nevus; [address] Multiple benign nevi; [place] [address] [facility] [place] (seborrheic keratosis); [phone]-[facility]MATOLOGY [place] (actinic keratosis) [place], [place] [address] Social History Tobacco Use Types [...] no SOCIAL HISTORY 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 Last visit at [facility] Derm: 01/02/2020 Medications: Reviewed in eD-H [...] FSE; history of Melanoma []Note routed to placement secretary [x]Recall has been placed in scheduling system []Appointment scheduled at checkout Scribe attestation: Yoana Pang LPN has performed the documentation for this encounter in the presence of and acting as a scribe for LAURA RENE MD I performed the above scribed service and agree with the accuracy of the documentation in this encounter. Reviewed and signed by: LAURA RENE MD Dermatology [facility] documented in this encounter Plan of Treatment Upcoming Encounters Date Type Specialty Care Team Description 02/19/2022 Laboratory Appointment Lab 02/19/2022 Office Visit Cardiology Vendetti, Liz, PA [facility] Cardiology Dept [place], [place] [address] (Wo rk) 03/26/2022 Office Visit Cardiology Vitaliy Nobles MD [facility] [place], [place] [address] (Wo rk) documented as of this encounter Visit Diagnoses Diagnosis History of melanoma Personal history of malignant melanoma o f skin History of dysplastic nevus Personal history of diseases of skin and subcutaneous tissue Multiple benign nevi Benign neoplasm of skin, site unspecifie d [place] (seborrheic keratosis) Other seborrheic keratosis [place] (actinic keratosis) Actinic keratosis Chronic systolic heart failure documented in this encounter Care Teams Bull Gang Supervisor Relationship Specialty Start Date End Date Lovely Vicente MD PCP - General 04/16/[address] [place] [address] documented as of this encounter
--- OUTSIDE RECORDS SUMMARY | 2022-02-18 08:13 | XMS_ITS | Encounter Summary ---
:1945 Author Organization [facility] [place] [address] Care Team Providers Name Role Phone Lovely Vicente MD Primary Care Provider Reason for Visit Auth/Cert Specialty Diagnoses / Procedures Referred By Contact Refer red To Contact Diagnoses NSTEMI Procedures emerg ipi Referral ID Status Reason Start Date Expiration Date Visits Requ ested Visits Authorized [id number] 1 1 Encounter Details Date Type Department Care Team Description 12/10/2021 Surgery Mule Tender Asa Coulter MD CARDIAC CATHETERIZATION [facility] DR [place]idd[place] [address] [place] [address] [phone] (Wo rk) Social History Tobacco Use Types [...] Peter PA-C Kelly LaFlamme PA-C Cardiovascular Medicine [phone] Discharge Diagnoses (Hospital Problems) and Secondary Diagnoses [...] 3.75 guiding catheter and a 3.5 Fr [place] 20 Mhz using Manual pullback. Imaging was successful. Image quality was good. The ostial LCX showed moderate diffuse atherosclerotic plaque with scattered three quadrant calcification. Measurements were performed after pre-dilation. Post Intervention: The stent was well expanded and apposed. Intravascular Ultrasound was performed in the distal LM using a 7 Fr EBU 3.75 guiding catheter and a 3.5 Fr [place] 20 Mhz using Manual pullback. Imaging was successful. Image quality was good. The distal LM showed moderate diffuse atherosclerotic plaque. Post Intervention: The stent was well expanded and apposed. Indication for Intervention: Coronary intervention was indicated for primary therapy for an acute myocardial infarction. The priority for the procedure was Urgent. The [facility] indication for the procedure was [...] may require modification of this regimen. Consult [facility] Interventional Cardiology for questions. [...] vascular congestion and cardiomegaly. ?? TTE from [facility] 12/08/21 ? Prior Cardiac [...] prior thyroidectomy in 2012 who presented to [facility] with 1 week progressing [...] 03/2021 with Liz Poole PA-C. ?? At [facility], respiratory distress with hypoxia [...] and diet drinks did not cause his VA. This is what his thought was the [...] appointments: During 8am-5pm Wednesday through Wednesday call [phone] to speak with a nurse in the cardiology clinic All other times call [phone] and ask to speak to the environmental field services technician fat purification worker. Return to work: One week Driving: No driving for 48 hours after catheterization. Follow up Appointments: PCP Lovely Vicente MD [phone] to see patient at the end of December for annual check up. Patient to see Dr. Lorenzana at 1120 am at December 19 for a post hospital check up. Sole Stitcher Hand Dr. De Oliveira to see you in [facility]. Left a message for office to set a date and time. Please call [phone] Nobles to see the patient for a same day cath in 2-3 weeks from now. Office to call with a date and time. For questions please call [phone] Home oxygen therapy: N/A Arrangements for VNA/home care: none Future Appointments and Orders Future Orders Complete By Expires Basic Metabolic Panel (non-fasting) [LAB15 Custom] 12/19/2021 (Approximate) 12/12/2022 Process Instructions: INCLUDES: Calcium, BUN, Creat, GFR, Glucose, Lytes Scheduling Instructions: Comments: Questions: Referral to Cardiac Rehab [[id number] Custom] As directed Process Instructions: If no [...] appointments: During 8am-5pm Wednesday through Wednesday call [phone] to speak with a nurse in the cardiology clinic All other times call [phone] and ask to speak to the environmental field services technician fat purification worker. Return to work: One week Driving: No driving for 48 hours after catheterization. Follow up Appointments: PCP Lovely Vicente MD [phone] to see patient at the end of December for annual check up. Patient to see Dr. Lorenzana at 1120 am at December 19 for a post hospital check up. Sole Stitcher Hand Dr. D eOliveira to see you in [facility]. Left a message for office to set a date and time. Please call [phone] Nobles to see the patient for a same day cath in 2-3 weeks from now. Office to call with a date and time. 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 Tolerated procedure well. Home today at 11 [...] TROPONINT 1.13* 0.92* 0.89* Pertinent Radiographic/Diagnostic Results: R/[facility] 12/10/21 Hemodynamics: Right Heart Pressures Resting: [...] pulmonary vascular congestion and cardiomegaly. TTE from [facility] 12/08/21 Prior Cardiac Studies: [...] warfarin, IDDM2, CKD III, hypertension, dyslipidemia, COPD, MARAI VICTORIA, right metatarsal amputation 08/09/2017, and hypothyroidism [...] 5 Mg HAYS/T/// and 7.5 mg /. Ratlfif check DOAC, consider transition to DOAC if [...] with MD Janneth Neville PA 12/12/2021 Pager [phone] Associated attestation - Ifeanyi Truong MD - [...] ratio for each meal) Desirae Jett APRN [facility] Endocrinology Diabetes Management Pager [phone] 20 minutes of this 35 minute visit [...] Progress Note Patient Name: Don Fatima Service: TRAFFIC EXPERT / PA Responsible Attending: Iker Cuevas MD [...] + trop. Known CAD with hx of VA and CABG. DM. MARIA VICTORIA.ICM. ??? 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 Tolerated procedure well. Review of Systems: Review [...] pulmonary vascular congestion and cardiomegaly. TTE from [facility] 12/08/21 Prior Cardiac Studies: [...] and answered his questions. Iker Cuevas MD [facility] Total time spent on review of records prior to visit, face to face time with patient during visit, documentation, and coordination of care with other clinicians: 25 minutes. . Iker Cuevas MD - 12/10/2021 12:30 PM EDT Images from the original note were not included. Inpatient Cardiology Progress Note Patient Name: Don Fatima Service: TRAFFIC EXPERT / PA Responsible Attending: Iker Cuevas MD Reason for continued hospitalization: NSTEMI- s/p R/LHC- PCW 27, occluded SVGs s/p PCI to ostial LCX ADHF and hypoxia- IV diuresis Active Problems: Active Hospital Problems Diagnosis ??? Admitted with 2 days of sob, hypoxemia, and + trop. Known CAD with hx of VA and CABG. DM. MARIA VICTORIA.ICM. ??? 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 Tolerated procedure well. Review of Systems: Review [...] pulmonary vascular congestion and cardiomegaly. TTE from [facility] 12/08/21 Prior Cardiac Studies: [...] Discussed with MD Migdalia Peter PA-C Pager #[phone] 12/10/2021 Cardiology Attending Note I have seen [...] updated and given pictures. Iker Cuevas MD [facility] Total time spent on review of records prior to visit, face to face time with patient during visit, documentation, and coordination of care with other clinicians: 35 minutes. Iker Cuevas MD - 12/09/2021 7:28 AM EDT Images from the original note were not included. Inpatient Cardiology Progress Note Patient Name: Don Fatima Service: TRAFFIC EXPERT / PA Responsible Attending: Iker Cuevas MD Reason for continued hospitalization: NSTEMI- awaiting R/LHC ADHF and hypoxia- IV diuresis, R/LHC Active Problems: Active Hospital Problems Diagnosis ??? Admitted with 2 days of sob, hypoxemia, and + trop. Known CAD with hx of VA and CABG. DM. MARIA VICTORIA.ICM. ??? ASHD [...] pulmonary vascular congestion and cardiomegaly. TTE from [facility] 12/08/21 Prior Cardiac Studies: [...] Discussed with MD Migdalia Peter PA-C Pager #[phone] 12/09/2021 Cardiology Attending Note I have seen and examined the patient. I agree with the findings above. Developed CHF early this am despite getting more iv lasix last evening. Feeling better now. INR > 2. Lungs still wet at base. Echo at [facility] showed EF 35% with mild mod MR slightly lower than last value here. -vit K 2.5 orally to facilitate correction of INR- this will take 12-24 hours to take effect -furosemide 80 mg iv now -postpone right and left heart cath until tomorrow given INR and ADHF -increase statin to achieve LDL < 70 -CPAP tonight Iker Cuevas MD [facility] Total time spent on review of [...] + trop. Known CAD with hx of VA and CABG. DM. MARIA VICTORIA.ICM. ??? ASHD [...] prior thyroidectomy in 2012 who presented to [facility] with 1 week progressing [...] visit 03/2021 with Liz Poole PA-C. At [facility], respiratory distress with hypoxia [...] SETUP performed by Manny Mcknight MD at [facility] MAIN OR ??? PRO AMPUTATION FOOT, TRANSMETATARSAL Right 08/09/2017 AMPUTATION, TRANSMETATARSAL (WRVU 12.71) performed by Yonathan Smith MD at [facility] MAIN OR ??? PRO CABG, ARTERIAL, SINGLE N/A 07/07/2017 @CABG, USING ARTERIAL GRAFT;SINGLE ARTERIAL GRAFT (WRVU 33.75) performed by Yuan Retana MD at [facility] MAIN OR ??? PRO CABG, ARTERY-VEIN, TWO N/A 07/07/2017 @CABG, TWO VENOUS GRAFTS & ARTERIAL GRAFT (WRVU 7.93) performed by Yuan Retana MD at [facility] MAIN OR ??? PRO COLONOSCOPY, REMV LESN, SNARE 01/16/2014 COLONOSCOPY, POLYPECTOMY, REMOVAL LESION BY SNARE performed by Nohemi Jaimes MD at [facility] ENDOSCOPY ??? PRO DRESSING CHANGE UNDER ANESTHESIA Right 08/11/2017 (MSURG) DRESSING CHANGE (FOR OTHER THAN IVAN) UNDER ANES. (WRVU 0.86) performed by Lamar Smith MD at [facility] MAIN OR ??? PRO ENDOSCOPY W/VIDEO-ASST VEIN HARVEST, CABG Right 07/07/2017 ENDOSCOPIC HARVEST VEIN(S) FOR CABG (WRVU 0.31) performed by Yuan Retana MD at [facility] MAIN OR ??? PRO THYROIDECTOMY 03/28/2013 THYROIDECTOMY, TOTAL OR COMPLETE performed by Manny Mcknight MD at [facility] MAIN OR Significant Family History: Family History [...] (H) 65 - 199 mg/dL Labs at [facility] 12/08/2021-troponin I 8004 (UN [...] Monitor for ADRs. Trend troponins. Admission EKG. [facility] 12/09; consented. TTE. Telemetry monitoring, daily [...] code #Diet-carb control; n.p.o. after midnight for [facility] #DVT prophy- heparin infusion #GI prophy- PPI Discussed with MD Morgan Peter PA-C APP2 pager [phone] 12/08/2021 Cardiology Attending Note I have seen [...] is type 1 due to graft or te-moak coronary stenosis vs acute injury from CHF. 3. PAF: currrently in NSR. Have replaced warfarin with heparin 4. PAD: stable 5. DM: stable 6. CKD: will monitor and minimize contrast. Pt very appreciative of Dr. Yuan Retana's care in 2018. Will let him know patient is here. Iker Cuevas MD [facility] documented in this encounter Miscellaneous Notes Care [...] Type: *No Product type* / Secondary Insurance: [employer] [place] Prescription Coverage: Yes This plan was [...] cath without complications. Migdalia Parker PA-C Pager #[phone] 12/10/2021 Initial Assessments - Nick Georges RN [...] COVID test: Lab Results Component Value Date [id number] Not Detected 12/08/2021 Past medical History: Past [...] spouse would be surrogate decision maker per ID surrogate decision making law. (Only good for 180 days) Any patient receiving care at [facility] must abide by ID law. The hierarchy for surrogate decision making [...] (i) The agent with financial power of pan cleaner or a conservator appointed in accordance with [...] - standard, cane - straight Home Address: [address] [place] [address] [place] [address] Social & Family Supports: All names listed below confirmed with patient as current and correct Extended Emergency Contact Information Primary Emergency Contact: Kisha Fatima Address: [address] [place] [address] [place] [address] [place] Relation: Spouse Secondary Emergency Contact: Elba Swenson Address: [address] of [place] Relation: Child Current [...] Type: *No Product type* / Secondary Insurance: [facility] Prescription Coverage: Yes Preferred Pharmacy: [facility] [id number] [address] - [place], [place] - [address] [place] [address] [place] Status: Patient is a : unable to assess Primary Care Provider: Lovely Vicente MD [phone] Patient/Caregiver Goals of Treatment: Get out of here Potential Needs for Transition of Care: none Agency Referrals: none patient has [facility] past Transportation: no concerns Transportation Anticipated: family or friend will provide Concerns to be Addressed: patient refuses services, discharge planning Assessment: Patient is admitted to [facility] Service pager [phone] for 76 y.o.??male??with h/o??CAD s/p 3vCABG (THOMPSON-LAD, [...] status on current unit. Nick Georges RN auto inspection specialist, Office of Care Management Pager: [phone] Brief Op Note - Vitaliy Nobles MD - 12/10/2021 8:31 AM EDT Images from the original note were not included. [facility] [place] [address] CORONARY ANGIOGRAM AND PERCUTANEOUS CORONARY INTERVENTION REPORT Patient: Don Fatima : 1945 MR number: [id number] Date of Service: 12/10/2021 Home Health Provider: Vitaliy Nobles MD Fellow: Rancho Woods MD [...] management and to provide a review of shelter diabetes care. Diabetes History: Don Fatima has had diabetes for 10 years. He has been on insulin for the last several years andis managed by his PCP. Lives in [place], [place] with his . States that he [...] 5 gm carb ratio for each meal) [facility] diabetes care: Medications - Outpatient treatment regimen recommendations pending based on the hospital course. Monitoring - continue BG tid ac & hs Diet - low fat/low carb diet Exercise - weight-bearing exercise 30 min/day, as tolerated Thank you for allowing us to provide care for your patient Desirae Jett APRN Endocrinology Pager [phone] 70 minutes of this 80 minute visit [...] + trop. Known CAD with hx of VA and CABG. DM. MARIA VICTORIA.ICM. ??? ASHD [...] to remain on Med/Surg floor, please page [phone] for any further questions or concerns. LANDON [...] for further details. STEPHANIE Rebolledo 12/08/2021 Pager [phone] documented in this encounter Plan of Treatment Upcoming Encounters Date Type Specialty Care Team Description 02/19/2022 Laboratory Appointment Lab 02/19/2022 Office Visit Cardiology Liz Poole PA [facility] Cardiology Dept [place], [place] [address] (Wo rk) 03/26/2022 Office Visit Cardiology Vitaliy Nobles MD [facility] CARDIOLOGY [place], [place] [address] (Wo rk) Scheduled Referrals Name [...] POC Glucose 215 (H) 65 - 199 [facility] mg/dL [facility] Comment: Supplemental ranges: <140 mg/dL before meals <180 mg/dL all other times of the day Specimen Anatomical Collection Method Collection Time Receive d Time (Source) Location / / Volume Laterality Blood 12/12/2021 7:42 AM 7:42 EDT AM EDT Ifeanyi Truong MD POINT OF CARE TEST ORDERABLE S Performing Organization Address City/State/[place] [address] (ABNORMAL) Differential, Automated (12/12/2021 4:51 AM EDT) P athologist Signature Neutrophils % 75.4 % [facility] Neutr Abs (ANC) 5.95 1.70 - [facility] 6.10 [facility] x10(3)/[facility] LABORATORY Lymphocytes % 12.2 % [facility] Lymphocytes Abs 1.0 0.9 - 3.2 [facility] x10(3)/[facility] LABORATORY Monocytes % 9.5 % [facility] Monocyte Abs 0.8 0.3 - 0.9 [facility] x10(3)/[facility] LABORATORY Eosinophils % 1.8 % [facility] Eosinophils Abs 0.1 0.0 - 0.4 [facility] x10(3)/[facility] LABORATORY Basophils % 0.5 % [facility] Basophils Abs 0.0 0.0 - 0.1 [facility] x10(3)/[facility] LABORATORY Immature Gran % 0.60 % ST. [...] Organization Address City/State/[place] [address] (ABNORMAL) Hemogram (12/12/2021 4:51 AM EDT) Analysis Performed At Patho logist Time Signature WBC 7.9 4.0 - 9.5 [facility] x10(3)/[facility] LABORATORY RBC 4.19 (L) 4.58 - [facility] 5.54 [facility] x10(6)/[facility] LABORATORY Hemoglobin 12.1 (L) 13.7 - [place] 16.5 g/dL [facility] Hematocrit 36.7 (L) 40.5 - [place] 48.5 % [facility] MCV 87.6 82.9 - [facility] 93.1 [facility] LABORATORY MCH 28.9 27.5 - [place] 32.1 pg [facility] MCHC 33.0 32.0 - [facility]AN 35.7 g/dL [facility] Platelets 231 145 - 357 [facility] x10(3)/[facility] LABORATORY RDWSD 47.2 (H) 36.0 - [facility]AN 45.0 [facility] LABORATORY RDWCV 14.6 (H) 11.4 - [facility] 13.8 % [facility] MPV 9.5 7.6 - 12.9 [facility] LABORATORY nRBC % Auto 0.0 % [facility] nRBC Abs Auto 0.000 0.000 - [facility] 0.000 [facility] x10(3)/[facility] LABORATORY Specimen Anatomical Collection Method Collection Time Receive d Time (Source) Location / / Volume Laterality Blood 12/12/2021 4:51 AM 5:06 EDT AM EDT Resulting Agency Comment Spec In Lab Bijan Sun MD HEMATOLOGY ORDERABLES Performing Organization Address City/State/[place] [address] (ABNORMAL) Prothrombin Time (12/12/2021 4:51 AM EDT) P athologist Signature PT 14.9 (H) 9.4 - 12.5 [facility] sec [facility] INR 1.3 [facility] Comment: An INR [...] Organization Address City/State/[place] [address] (ABNORMAL) BMP w/fasting Glucose (12/12/2021 4:51 AM EDT) athologist Signature Glucose 152 (H) 65 - 99 [facility] Fasting mg/dL [facility] Comment: ?Fasting* Glucose Interpretive [...] of Diabetes Mellitus, Position Statement from the [employer]. ??Diabete s Care, Volume 33, Supplement 1, Jul 2009 BUN 52 (H) 10 - 20 mg/dL [facility] Creatinine 1.72 (H) 0.80 - 1.50 mg/dL [facility] Sodium 143 135 - 145 mmol/L [facility] Potassium 3.9 3.5 - 5.0 mmol/L [facility] Comment: Please note: ??Patients with WBC >100,00 0 may have falsely elevated Potassium levels. ??For accurate Potassium quantif ication in these patients send serum separator tube (gold top) for subsequent determinations. ??Contact the Clinical Chemistry Laboratory if there are any qu estions. Chloride 105 98 - 107 mmol/L [facility] CO2 21 (L) 22 - 31 mmol/L [facility] Anion Gap 17 (H) 5 - 15 mmol/L [facility] Calcium 8.9 8.5 - 10.5 mg/dL [facility] Estimated GFR 38 (L) >=60 mL/min/1.73 m?? [facility] [...] City/[facility]/[place] [address] Magnesium (12/12/2021 4:51 AM EDT) athologist Signature Magnesium 1.02 0.69 - 1.07 [facility]/L [facility] Specimen Anatomical Collection Method Collection Time Receive d Time (Source) Location / / Volume Laterality Blood 12/12/2021 4:51 AM 2 5:06 EDT AM EDT Resulting Agency Comment Spec In Lab Iker Cuevas MD CHEMISTRY ORDERABLES Performing Organization Address City/[facility]/[place] [address] POCT Glucose (12/12/2021 3:43 AM EDT) P athologist Signature POC Glucose 138 65 - 199 [place] mg/dL [facility] Comment: Supplemental ranges: <140 mg/dL before meals <180 mg/dL all other times of the day Specimen Anatomical Collection Method Collection Time Receive d Time (Source) Location / / Volume Laterality Blood 12/12/2021 3:43 AM 2 3:43 EDT AM EDT Iker Cuevas MD POINT OF CARE TEST ORDERABLE S Performing Organization Address City/State/[place] [address] POCT Glucose (12/11/2021 11:44 PM EDT) athologist Signature POC Glucose 124 65 - 199 [facility]dL [facility] Comment: Supplemental ranges: <140 mg/dL before meals <180 mg/dL all other times of the day Specimen Anatomical Collection Method Collection Time Receive d Time (Source) Location / / Volume Laterality Blood 12/11/2021 11:44 12/11/2021 PM EDT 11:44 PM EDT Iker Cuevas MD POINT OF CARE TEST ORDERABLE S Performing Organization Address City/State/[place] [address] (ABNORMAL) POCT Glucose (12/11/2021 8:12 PM EDT) athologist Signature POC Glucose 200 (H) 65 - 199 [facility] mg/dL [facility] Comment: Supplemental ranges: <140 mg/dL before meals <180 mg/dL all other times of the day Specimen Anatomical Collection Method Collection Time Receive d Time (Source) Location / / Volume Laterality Blood 12/11/2021 8:12 PM 2 8:12 EDT PM EDT Iker Cuevas MD POINT OF CARE TEST ORDERABLE S Performing Organization Address City/State/[place] [address] (ABNORMAL) POCT Glucose (12/11/2021 6:50 PM EDT) athologist Signature POC Glucose 245 (H) 65 - 199 [facility] mg/dL [facility] Comment: Supplemental ranges: <140 mg/dL before meals <180 mg/dL all other times of the day Specimen Anatomical Collection Method Collection Time Receive d Time (Source) Location / / Volume Laterality Blood 12/11/2021 6:50 PM 2 6:50 EDT PM EDT Iker Cuevas MD POINT OF CARE TEST ORDERABLE S Performing Organization Address City/State/[place] [address] (ABNORMAL) POCT Glucose (12/11/2021 4:00 PM EDT) athologist Signature POC Glucose 383 (H) 65 - 199 [facility] mg/dL [facility] Comment: Supplemental ranges: <140 mg/dL before meals <180 mg/dL all other times of the day Specimen Anatomical Collection Method Collection Time Receive d Time (Source) Location / / Volume Laterality Blood 12/11/2021 4:00 PM 2 4:00 EDT PM EDT Iker Cuevas MD POINT OF CARE TEST ORDERABLE S Performing Organization Address City/State/[place] [address] (ABNORMAL) POCT Glucose (12/11/2021 12:01 PM EDT) athologist Signature POC Glucose 342 (H) 65 - 199 [facility] mg/dL [facility] Comment: Supplemental ranges: <140 mg/dL before meals <180 mg/dL all other times of the day Specimen Anatomical Collection Method Collection Time Receive d Time (Source) Location / / Volume Laterality Blood 12/11/2021 12:01 12/11/2021 PM EDT 12:01 PM EDT Iker Cuevas MD POINT OF CARE TEST ORDERABLE S Performing Organization Address City/State/ZIP Code Phon e Number [place] [address] COVID-19 PCR (12/11/2021 10:13 AM EDT) [facility] Method Time Signature SARS-CoV-2 Not Detected Not Detected BARBARA RNA [facility] LABORATORY Comment: This result should be interpreted [...] diagnosis of COVID-19 is performed using the [employer] S-CoV-2 Assay as authorized by the FDA Emergency Use Authorization (EUA). This EUA assay is intended for In-vitro Diagnostic (IVD) use with respiratory sp ecimens such as nasopharyngeal swabs collected from individuals during the ac terrence phase of infection. This assay is performed based on the instructions for use provided by [employer] and additional guidance provided by CDC [...] fact sheets at the following FDA website: https://www.fda.gov/medical-devices/lrvodxtnstn-nevzeal-9781-cgpcv-97-yamtncduf- zmg-atthjeywklqfrv-tewxmhq-devices/cndxj-drxvboeahfg-nlqy SARS-Cov-2 RNA Source TRA[employer]IC EXPERT Swab [facility] LABORATORY Specimen (Source) Anatomical Collection Method Collection Time Re ceived Time Location / / Volume Laterality Nasopharyngeal Swab 12/11/2021 10:13 0503/2022 AM EDT 11:16 AM EDT Comment: Symptoms->Surveillance Resulting Agency Comment Spec In Lab Iker Cuevas MD MICROBIOLOGY - GENERAL ORDER ROBSON Performing Organization Address City/State/[place] [address] POCT Glucose (12/11/2021 7:34 AM EDT) athologist Signature POC Glucose 198 65 - 199 [facility] mg/dL [facility] Comment: Supplemental ranges: <140 mg/dL before meals <180 mg/dL all other times of the day Specimen Anatomical Collection Method Collection Time Receive d Time (Source) Location / / Volume Laterality Blood 12/11/2021 7:34 AM 7:34 EDT AM EDT Iker Cuevas MD POINT OF CARE TEST ORDERABLE S Performing Organization Address City/[facility]/[place] [address] (ABNORMAL) POCT Glucose (12/11/2021 5:07 AM EDT) athologist Signature POC Glucose 208 (H) 65 - 199 [facility] mg/dL [facility] Comment: Supplemental ranges: <140 mg/dL before meals <180 mg/dL all other times of the day Specimen Anatomical Collection Method Collection Time Receive d Time (Source) Location / / Volume Laterality Blood 12/11/2021 5:07 AM 5:07 EDT AM EDT Iker Cuevas MD POINT OF CARE TEST ORDERABLE S Performing Organization Address City/State/[place] [address] (ABNORMAL) Differential, Automated (12/11/2021 4:28 AM EDT) [facility] Method Time Signature Neutrophils % 79.6 % [facility] Neutr Abs (ANC) 7.01 (H) 1.70 - [facility] 6.10 [facility] x10(3)/[facility] LABORATORY Lymphocytes % 9.1 % [facility] Lymphocytes Abs 0.8 (L) 0.9 - 3.2 [facility] x10(3)/[facility] LABORATORY Monocytes % 9.2 % [facility] Monocyte Abs 0.8 0.3 - 0.9 [facility] x10(3)/[facility] LABORATORY Eosinophils % 1.3 % [facility] Eosinophils Abs 0.1 0.0 - 0.4 [facility] x10(3)/[facility] LABORATORY Basophils % 0.5 % [facility] Basophils Abs 0.0 0.0 - 0.1 [facility] x10(3)/[facility] LABORATORY Immature Gran % 0.30 % [facility] Comment: Immature granulocytes(IG's)percentage an d absolute count will include metamyelocytes, myelocytes, and promyelo cytes. Blood smears from CBCs yielding IG's will be scanned manually for concor dance. If this scan disagrees with the automated IG or if promyelocytes are not ed, a manual differential will be performed. Melisa Gran Abs 0.03 0.00 - 0.04 x10(3)/[facility] MAR Y [facility] LABORATORY Specimen Anatomical Collection Method Collection Time Receive d Time (Source) Location / / Volume Laterality Blood 12/11/2021 4:28 AM 2 4:37 EDT AM EDT Resulting Agency Comment Spec In Lab Bijan Sun MD HEMATOLOGY ORDERABLES Performing Organization Address City/State/[place] [address] (ABNORMAL) Hemogram (12/11/2021 4:28 AM EDT) Analysis Performed At Patho logist Time Signature WBC 8.8 4.0 - 9.5 [facility] x[facility](3[facility] LABORATORY RBC 4.15 (L) 4.58 - [place]A RYAN 5.54 [facility] x10(6)/[facility] LABORATORY Hemoglobin 11.9 (L) 13.7 - [facility] 16.5 g/dL [facility] Hematocrit 36.9 (L) 40.5 - [facility] 48.5 % [facility] MCV 88.9 82.9 - [facility] 93.1 [facility] LABORATORY MCH 28.7 27.5 - [place] RYAN 32.1 pg [facility] MCHC 32.2 32.0 - [place] 35.7 g/dL [facility] Platelets 211 145 - 357 [facility] x10(3)/[facility] LABORATORY RDWSD 48.3 (H) 36.0 - [facility] RYAN 45.0 [facility] LABORATORY RDWCV 14.8 (H) 11.4 - [facility] RYAN 13.8 % [facility] LABORATORY MPV 9.6 7.6 - 12.9 [facility] LABORATORY nRBC % Auto 0.0 % [facility]ORATORY nRBC Abs Auto 0.000 0.000 - [place] R[place] 0.000 [facility] x10(3)/[facility] LABORATORY Specimen Anatomical Collection Method Collection Time Receive d Time (Source) Location / / Volume Laterality Blood 12/11/2021 4:28 AM 2 4:37 EDT AM EDT Resulting Agency Comment Spec In Lab Bijan Sun MD HEMATOLOGY ORDERABLES Performing Organization Address City/State/[place] [address] (ABNORMAL) Prothrombin Time (12/11/2021 4:28 AM EDT) athologist Signature PT 17.7 (H) 9.4 - 12.5 [facility] LABORATORY INR 1.6 [facility] LAB[facility] Comment: An INR [...] Organization Address City/State/ZIP Code Phon e Number [place] [id number] (ABNORMAL) BMP w/fasting Glucose (12/11/2021 4:28 AM EDT) athologist Signature Glucose 207 (H) 65 - 99 [facility] Fasting mg/dL [facility] Comment: ?Fasting* Glucose Interpretive [...] of Diabetes Mellitus, Position Statement from the [employer]. ??Diabete s Care, Volume 33, Supplement 1, Jul 2009 BUN 49 (H) 10 - 20 mg/dL [facility] LABORATORY Creatinine 1.43 0.80 - 1.50 mg/dL [facility] LABORATORY Sodium 142 135 - 145 [...] estions. Chloride 104 98 - 107 mmol/L [facility] CO2 23 22 - 31 mmol/L [facility] Anion Gap 15 5 - 15 mmol/L [facility]ORATORY Calcium 8.6 8.5 - 10.5 mg/dL [facility] LABORATORY Estimated GFR 48 (L) >=60 mL/min/1.73 m[facility] [...] Organization Address City/State/[place] [address] Magnesium (12/11/2021 4:28 AM EDT) athologist Signature Magnesium 1.04 0.69 - 1.07 [facility] mmol/L [facility]OR[facility] Specimen Anatomical Collection Method Collection Time Receive d Time (Source) Location / / Volume Laterality Blood 12/11/2021 4:28 AM 2 4:37 EDT AM EDT Resulting Agency Comment Spec In Lab Iker Cuevas MD CHEMISTRY ORDERABLES Performing Organization Address City/State/ZIP Code Phon e Number [address] POCT Glucose (12/11/2021 3:58 AM EDT) athologist Signature POC Glucose 189 65 - 199 [facility] mg/dL [facility] Comment: Supplemental ranges: <140 mg/dL before meals <180 mg/dL all other times of the day Specimen Anatomical Collection Method Collection Time Receive d Time (Source) Location / / Volume Laterality Blood 12/11/2021 3:58 AM 2 3:58 EDT AM EDT Iker Cuevas MD POINT OF CARE TEST ORDERABLE S Performing Organization Address City/State/[place] [address] (ABNORMAL) POCT Glucose (12/10/2021 11:45 PM EDT) athologist Signature POC Glucose 205 (H) 65 - 199 [facility] mg/dL [facility] Comment: Supplemental ranges: <140 mg/dL before meals <180 mg/dL all other times of the day Specimen Anatomical Collection Method Collection Time Receive d Time (Source) Location / / Volume Laterality Blood 12/10/2021 11:45 12/10/2021 PM EDT 11:45 PM EDT Iker Cuevas MD POINT OF CARE TEST ORDERABLE S Performing Organization Address City/State/ZIP Code Phon e Number [address] (ABNORMAL) POCT Glucose (12/10/2021 7:54 PM EDT) athologist Signature POC Glucose 225 (H) 65 - 199 [facility] mg/dL [facility] Comment: Supplemental ranges: <140 mg/dL before meals <180 mg/dL all other times of the day Specimen Anatomical Collection Method Collection Time Receive d Time (Source) Location / / Volume Laterality Blood 12/10/2021 7:54 PM 2 7:54 EDT PM EDT Iker Cuevas MD POINT OF CARE TEST ORDERABLE S Performing Organization Address City/[facility]/[place] [address] Potassium (12/10/2021 7:46 PM EDT) athologist Signature Potassium 4.2 3.5 - 5.0 [facility] mmol/L [facility] Comment: Please note: ??Patients [...] City/[facility]/[place] [address] (ABNORMAL) Basic Metabolic Panel (non-fasting) (12/10/2021 6:12 PM EDT) athologist Signature Glucose Lvl 246 (H) 65 - 199 [facility] mg/dL [facility] Comment: Diabetes: >=200 mg/dL plus symp toms BUN 50 (H) 10 - 20 mg/dL [facility] LABORATORY Creatinine 1.39 0.80 - 1.50 mg/dL [facility] LABORATORY Sodium 138 135 - 145 mmol/L [facility] LABORATORY Potassium Not Perf 3.5 - 5.0 [facility] LABORATORY Comment: Unable to quantitate due [...] estions. Chloride 100 98 - 107 mmol/L [facility] CO2 22 22 - 31 mmol/L [facility] Anion Gap 16 (H) 5 - 15 mmol/L [facility] LABORATORY Calcium 8.3 (L) 8.5 - 10.5 mg/dL [facility] LABORATORY Estimated GFR 49 (L) >=60 mL/min/1.73 m?? [facility] [...] Organization Address City/State/[place] [address] POCT Glucose (12/10/2021 4:59 PM EDT) athologist Signature POC Glucose 158 65 - 199 [facility] mg/dL [facility] Comment: Supplemental ranges: <140 mg/dL before meals <180 mg/dL all other times of the day Specimen Anatomical Collection Method Collection Time Receive d Time (Source) Location / / Volume Laterality Blood 12/10/2021 4:59 PM 4:59 EDT PM EDT Iker Cuevas MD POINT OF CARE TEST ORDERABLE S Performing Organization Address City/State/[place] [address] (ABNORMAL) POCT Glucose (12/10/2021 12:43 PM EDT) P athologist Signature POC Glucose 241 (H) 65 - 199 [facility] mg/dL [facility] Comment: Supplemental ranges: <140 mg/dL before meals <180 mg/dL all other times of the day Specimen Anatomical Collection Method Collection Time Receive d Time (Source) Location / / Volume Laterality Blood 12/10/2021 12:43 12/10/2021 PM EDT 12:43 PM EDT Iker Cuevas MD POINT OF CARE TEST ORDERABLE S Performing Organization Address City/[facility]/[place] [address] EKG 12 Lead (12/10/2021 11:17 AM EDT) Component Value Ref Range Test Analysis Performed Pathologis t Method Time At Signature Ventricular rate 62 BPM MUSE SYSTEM Atrial Rate 62 BPM MUSE SYSTEM P-R Interval 142 ms MUSE SYSTEM QRS Duration 100 ms MUSE SYSTEM Q-T Interval 434 ms MUSE SYSTEM QTC Calculated 440 ms MUSE SYSTEM (Bezet) Calculated P [place] 34 degrees MUSE SYSTEM Calculated R [place] -39 degrees MUSE SYSTEM Calculated T [place] 92 degrees MUSE SYSTEM INTERPRETATION Normal sinus rhythm MUSE SYSTEM Left axis deviation Minimal voltage criteria for LVH, may be normal variant ( [place] product ) Cannot rule out Inferior [...] SYSTEM - 12/10/2021 12:04 PM E DT ?[facility] ? Cardiac Cathete rization/Intervention Report ? Patient Name: Don Fatima. ? Procedure Date: 12/10/2021 ? A #: [id number] ? Primary Physician: Vitaliy Nobles ? Case #: [id number] ? File Name: [id number] ? Catheterization Order Number: [id number] ? [facility] ? Final Report [place], [place] ? Patient Name: ? Don E. Stewa rt ? ID#: ?[id number] ? : ?1945 ? Procedure Date: ? December 10, 2021 ? Case #: ? [id number] ? Room: ? 1 ? Case Physician: [...] was ?designated as ASA Class III. e [facility] clinical frailty scale is 5: Mildly ?Frail. [...] procedure was Urgent. The indication for ?the paving and surfacing labourer visit is ACS great er than 24 [...] ?3.75 guiding catheter and a 3.5 Fr [facility] [place] 20 Mhz using Manual ?pullback. ??Imaging was [...] ?3.75 guiding catheter and a 3.5 Fr [facility] [place] 20 Mhz using Manual ?pullback. ??Imaging was [...] may require ?modification of this regimen. C [facility] Interventional Cardiology for ?questions. ?The 1 [...] Procedure Note Vitaliy Nobles MD - 01/14/[address] [facility] Cardiac Catheterization/Intervention Re port Patient Name: Don Fatima Procedure Date: 12/10/2021 A #: [id number] Primary Physician: Vitaliy Nobles Case #: [id number] File Name: [id number] Catheterization Order Number: [id number] [facility] Final Report [place], [place] Patient Name: Don Fatima ID#: [...] e was Urgent. The indication for the paving and surfacing labourer visit is ACS greater than 24 hrs [...] and a 3.5 Fr [facility] [facility] [place] 20 Mhz using Manual pullback. Imaging was [...] and a 3.5 Fr [facility] [place] 20 Mhz using Manual pullback. Imaging was successful. Image quality was good. The distal LM showed moderate diffuse atherosclero tic plaque. Post Intervention: The stent was well e xpanded and apposed. Indication for Intervention: Coronary intervention was indicated for primary therapy for an acute myocardial infarction. The priority for the procedure was Urgent. [facility] the procedure was N MARKIE-ACS. [...] require modification of this regimen. Consult D [facility] Interventional Cardiology for questions. [...] discussed wit h the patient and Dr. Cueavs. 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 [...] POC Glucose 262 (H) 65 - 199 [facility] mg/dL [facility] Comment: Supplemental ranges: <140 mg/dL before meals <180 mg/dL all other times of the day Specimen Anatomical Collection Method Collection Time Receive d Time (Source) Location / / Volume Laterality Blood 12/10/2021 10:30 12/10/2021 AM EDT 10:30 AM EDT Iker Cuevas MD POINT OF CARE TEST ORDERABLE S Performing Organization Address City/State/[place] [address] (ABNORMAL) POCT Glucose (12/10/2021 9:48 AM EDT) athologist Signature POC Glucose 279 (H) 65 - 199 [facility] mg/dL [facility] Comment: Supplemental ranges: <140 mg/dL before meals <180 mg/dL all other times of the day Specimen Anatomical Collection Method Collection Time Receive d Time (Source) Location / / Volume Laterality Blood 12/10/2021 9:48 AM 2 9:48 EDT AM EDT Iker Cuevas MD POINT OF CARE TEST ORDERABLE S Performing Organization Address City/State/[place] [address] (ABNORMAL) POCT Glucose (12/10/2021 9:07 AM EDT) athologist Signature POC Glucose 268 (H) 65 - 199 [facility] mg/dL [facility] Comment: Supplemental ranges: <140 mg/dL before meals <180 mg/dL all other times of the day Specimen Anatomical Collection Method Collection Time Receive d Time (Source) Location / / Volume Laterality Blood 12/10/2021 9:07 AM 2 9:07 EDT AM EDT Iker Cuevas MD POINT OF CARE TEST ORDERABLE S Performing Organization Address City/State/[place] [address] (ABNORMAL) Point of Care Blood Gas Historical (12/10/2021 9:04 AM EDT) [facility] Method Time Signature POC pH 7.40 7.35 - [facility] 7.45 [facility] LABORATORY POC PCO2 40 35 - 45 [facility] mmHg [facility] POC PO2 63 (L) 85 - 104 [facility] mmHg [facility] POC Base Excess 0.0 -3.0 - 3.0 [facility] K mmol/L [facility] LABORATORY POC HCO3 24.8 20.0 - [facility] 26.0 [facility] mmol/[facility] LABORATORY POC Sodium 143 135 - 145 [facility] mmol/L [facility] POC Potassium 3.7 3.5 - 5.0 [facility] mmol/L [facility] LABOR[facility] POC Ionized Ca 1.07 (L) 1.15 - [place] [facility] 1.33 [facility] mmol/L [facility] LABORATORY POC Hematocrit 30.0 (L) 40.0 - [facility] 51.0 % [facility] LABORAT[facility] POC Calc Hgb 10.2 (L) 13.7 - [facility] 17.5 g/dL [facility]OR[facility] Comment: The calculation of hemoglobin f rom hematocrit assumes a normal MCHC. POC Bgas Loc CC LAB [facility] LABORATORY Specimen Anatomical Collection Method Collection Time Receive d Time (Source) Location / / Volume Laterality Blood 12/10/2021 9:04 AM 2 EDT 12:00 PM EDT Ifeanyi Truong MD CHEMISTRY ORDERABLES Performing Organization Address City/[facility]/[place] [address] (ABNORMAL) POCT Glucose (12/10/2021 7:19 AM EDT) athologist Signature POC Glucose 274 (H) 65 - 199 [facility] mg/dL [facility] Comment: Supplemental ranges: <140 mg/dL before meals <180 mg/dL all other times of the day Specimen Anatomical Collection Method Collection Time Receive d Time (Source) Location / / Volume Laterality Blood 12/10/2021 7:19 AM 2 7:19 EDT AM EDT Iker Cuevas MD POINT OF CARE TEST ORDERABLE S Performing Organization Address City/[facility]/[place] [address] Heparin (unfractionated) Level (12/10/2021 4:25 AM EDT) athologist Signature Heparin UFH 0.69 IU/mL [facility] LABORATORY Comment: Heparin (anti-Xa) levels should be [...] Organization Address City/State/[place] [address] (ABNORMAL) Differential, Automated (12/10/2021 4:25 AM EDT) [facility] Method Time Signature Neutrophils % 79.8 % [facility] LABORATORY Neutr Abs (ANC) 7.47 (H) 1.70 - [facility] 6.10 [facility] x10(3)/[facility] LABORATORY Lymphocytes % 10.6 % [facility] LABORATORY Lymphocytes Abs 1.0 0.9 - 3.2 [facility] x10(3)/[facility] LABORATORY Monocytes % 8.4 % [facility] LABORATORY Monocyte Abs 0.8 0.3 - 0.9 [facility] x10(3)/[facility] LABORATORY Eosinophils % 0.6 % [facility] LABORATORY Eosinophils Abs 0.1 0.0 - 0.4 [facility] x10(3)/[facility] LABORATORY Basophils % 0.2 % [facility] LABORATORY Basophils Abs 0.0 0.0 - 0.1 [facility] x10(3)/[facility] LABORATORY Immature Gran % 0.40 % [facility] LABORATORY Comment: Immature granulocytes(IG's)percentage an d absolute count will include metamyelocytes, myelocytes, and promyelo cytes. Blood smears from CBCs yielding IG's will be scanned manually for concor dance. If this scan disagrees with the automated IG or if promyelocytes are not ed, a manual differential will be performed. Melisa Gran Abs 0.04 0.00 - 0.04 x10(3)/[facility] MAR Y [facility] LABORATORY Specimen Anatomical Collection Method Collection Time Receive d Time (Source) Location / / Volume Laterality Blood 12/10/2021 4:25 AM 2 4:34 EDT AM EDT Resulting Agency Comment Spec In Lab Morgan BROWN HEMATOLOGY ORDERABLES Performing Organization Address City/State/[place] [address] (ABNORMAL) Hemogram (12/10/2021 4:25 AM EDT) Analysis Performed At Patho logist Time Signature WBC 9.4 4.0 - 9.5 [facility] x10(3)/[facility] LABORATORY RBC 3.81 (L) 4.58 - [facility] 5.54 [facility] x10(6)/[facility] LABORATORY Hemoglobin 11.1 (L) 13.7 - [facility] 16.5 g/dL [facility] LABORATORY Hematocrit 34.0 (L) 40.5 - [facility] 48.5 % [facility] LABORATORY MCV 89.2 82.9 - [facility] 93.1 [facility] LABORATORY MCH 29.1 27.5 - [facility] 32.1 pg [facility] LABORATORY MCHC 32.6 32.0 - [facility] 35.7 g/dL [facility] LABORATORY Platelets 183 145 - 357 [facility] x10(3)/[facility] LABORATORY RDWSD 49.9 (H) 36.0 - [facility] RYAN 45.0 [facility] LABORATORY RDWCV 15.2 (H) 11.4 - [facility] RYAN 13.8 % [facility] LABORATORY MPV 9.8 7.6 - 12.9 [facility] LABORATORY nRBC % Auto 0.0 % [facility] LABORATORY nRBC Abs Auto 0.000 0.000 - [facility] RYAN 0.000 [facility] x10(3)/[facility] LABORATORY Specimen Anatomical Collection Method Collection Time Receive d Time (Source) Location / / Volume Laterality Blood 12/10/2021 4:25 AM 2 4:34 EDT AM EDT Resulting Agency Comment Spec In Lab Morgan BROWN HEMATOLOGY ORDERABLES Performing Organization Address City/State/[place] [address] (ABNORMAL) Prothrombin Time (12/10/2021 4:25 AM EDT) P athologist Signature PT 20.0 (H) 9.4 - 12.5 [facility] LABORATORY INR 1.7 [facility] LABORATORY Comment: An INR [...] Organization Address City/State/[place] [address] (ABNORMAL) BMP w/fasting Glucose (12/10/2021 4:25 AM EDT) P athologist Signature Glucose 210 (H) 65 - 99 [facility] Fasting mg/dL [facility] LABORATORY Comment: ?Fasting* Glucose Interpretive [...] of Diabetes Mellitus, Position Statement from the [employer]. ??Diabete s Care, Volume 33, Supplement 1, Jul 2009 BUN 54 (H) 10 - 20 mg/dL [facility] LABORATORY Creatinine 1.52 (H) 0.80 - 1.50 mg/dL [facility] LABORATORY Sodium 140 135 - 145 mmol/L [facility] LABORATORY Potassium 3.9 3.5 - 5.0 mmol/L [facility] LABORATORY Comment: Please note: ??Patients with WBC >100,00 0 may have falsely elevated Potassium levels. ??For accurate Potassium quantif ication in these patients send serum separator tube (gold top) for subsequent determinations. ??Contact the Clinical Chemistry Laboratory if there are any qu estions. Chloride 104 98 - 107 mmol/L [facility] LABORATORY CO2 23 22 - 31 mmol/L [facility] LAB[facility]ORY Anion Gap 13 5 - 15 mmol/L [facility] LABORATORY Calcium 8.0 (L) 8.5 - 10.5 mg/dL [facility] Estimated GFR 44 (L) >=60 mL/min/1.73 m[facility] [...] Organization Address City/State/[place] [address] Magnesium (12/10/2021 4:25 AM EDT) athologist Signature Magnesium 0.95 0.69 - 1.07 [facility] mmol/L [facility] Specimen Anatomical Collection Method Collection Time Receive d Time (Source) Location / / Volume Laterality Blood 12/10/2021 4:25 AM 2 4:34 EDT AM EDT Resulting Agency Comment Spec In Lab Iker Cuevas MD CHEMISTRY ORDERABLES Performing Organization Address City/State/ZIP Code Phon e Number [address] POCT Glucose (12/10/2021 1:58 AM EDT) athologist Signature POC Glucose 164 65 - 199 [place] mg/dL [facility] Comment: Supplemental ranges: <140 mg/dL before meals <180 mg/dL all other times of the day Specimen Anatomical Collection Method Collection Time Receive d Time (Source) Location / / Volume Laterality Blood 12/10/2021 1:58 AM 2 1:58 EDT AM EDT Iker Cuevas MD POINT OF CARE TEST ORDERABLE S Performing Organization Address City/[facility]/ZIP Code Phon e Number [address] (ABNORMAL) POCT Glucose (12/09/2021 9:02 PM EDT) athologist Signature POC Glucose 313 (H) 65 - 199 [place] mg/dL [facility] Comment: Supplemental ranges: <140 mg/dL before meals <180 mg/dL all other times of the day Specimen Anatomical Collection Method Collection Time Receive d Time (Source) Location / / Volume Laterality Blood 12/09/2021 9:02 PM 2 9:02 EDT PM EDT Iker Cuevas MD POINT OF CARE TEST ORDERABLE S Performing Organization Address City/State/[place] [address] Heparin (unfractionated) Level (12/09/2021 7:30 PM EDT) athologist Signature Heparin UFH 0.48 IU/mL [facility]ORATORY Comment: Heparin (anti-Xa) levels should be [...] Organization Address City/State/[place] [address] (ABNORMAL) Basic Metabolic Panel (non-fasting) (12/09/2021 7:30 PM EDT) athologist Signature Glucose Lvl 372 (H) 65 - 199 [facility] mg/dL [facility] Comment: Diabetes: >=200 mg/dL plus symp toms BUN 56 (H) 10 - 20 mg/dL [facility] Creatinine 1.75 (H) 0.80 - 1.50 mg/dL [facility] estions. Chloride 102 98 - 107 mmol/L [facility] CO2 22 22 - 31 mmol/L [facility] Anion Gap 14 5 - 15 mmol/L [facility] Calcium 8.1 (L) 8.5 - 10.5 mg/dL [facility] Estimated GFR 37 (L) >=60 mL/min/1.73 m[facility] [...] Organization Address City/State/[place] [address] (ABNORMAL) POCT Glucose (12/09/2021 6:34 PM EDT) P athologist Signature POC Glucose 408 (H) 65 - 199 [facility] mg/dL [facility] Comment: Supplemental ranges: <140 mg/dL before meals <180 mg/dL all other times of the day Specimen Anatomical Collection Method Collection Time Receive d Time (Source) Location / / Volume Laterality Blood 12/09/2021 6:34 PM 2 6:34 EDT PM EDT Iker Cuevas MD POINT OF CARE TEST ORDERABLE S Performing Organization Address City/State/[place] [address] (ABNORMAL) POCT Glucose (12/09/2021 6:32 PM EDT) athologist Signature POC Glucose 356 (H) 65 - 199 [facility] Comment: Supplemental ranges: <140 mg/dL before meals <180 mg/dL all other times of the day Specimen Anatomical Collection Method Collection Time Receive d Time (Source) Location / / Volume Laterality Blood 12/09/2021 6:32 PM 2 6:32 EDT PM EDT Iker Cuevas MD POINT OF CARE TEST ORDERABLE S Performing Organization Address City/[facility]/[place] [address] (ABNORMAL) POCT Glucose (12/09/2021 4:19 PM EDT) athologist Signature POC Glucose 347 (H) 65 - 199 [facility] mg/dL [facility] Comment: Supplemental ranges: <140 mg/dL before meals <180 mg/dL all other times of the day Specimen Anatomical Collection Method Collection Time Receive d Time (Source) Location / / Volume Laterality Blood 12/09/2021 4:19 PM 2 4:19 EDT PM EDT Iker Cuevas MD POINT OF CARE TEST ORDERABLE S Performing Organization Address City/[facility]/[place] [address] Heparin (unfractionated) Level (12/09/2021 1:29 PM EDT) athologist Signature Heparin UFH 0.42 IU/mL [facility]ORATORY Comment: Heparin (anti-Xa) levels should be [...] Organization Address City/State/[place] [address] (ABNORMAL) POCT Glucose (12/09/2021 12:02 PM EDT) athologist Signature POC Glucose 235 (H) 65 - 199 [facility] mg/dL [facility] Comment: Supplemental ranges: <140 mg/dL before meals <180 mg/dL all other times of the day Specimen Anatomical Collection Method Collection Time Receive d Time (Source) Location / / Volume Laterality Blood 12/09/2021 12:02 12/09/2021 PM EDT 12:02 PM EDT Iker Cuevas MD POINT OF CARE TEST ORDERABLE S Performing Organization Address City/[facility]/[place] [address] (ABNORMAL) POCT Glucose (12/09/2021 9:44 AM EDT) P athologist Signature POC Glucose 214 (H) 65 - 199 [facility] mg/dL [facility] Comment: Supplemental ranges: <140 mg/dL before meals <180 mg/dL all other times of the day Specimen Anatomical Collection Method Collection Time Receive d Time (Source) Location / / Volume Laterality Blood 12/09/2021 9:44 AM 2 9:44 EDT AM EDT Iker Cuevas MD POINT OF CARE TEST ORDERABLE S Performing Organization Address City/State/[place] [address] EKG 12 Lead (12/09/2021 7:57 AM EDT) Component Value Ref Range Test Analysis Performed Pathologis t Method Time At Signature Ventricular rate 101 BPM MUSE SYSTEM Atrial Rate 101 BPM MUSE SYSTEM P-R Interval 150 ms MUSE SYSTEM QRS Duration 112 ms MUSE SYSTEM Q-T Interval 364 ms MUSE SYSTEM QTC Calculated 471 ms MUSE SYSTEM (Bezet) Calculated P [place] 59 degrees MUSE SYSTEM Calculated R [place] -42 degrees MUSE SYSTEM Calculated T [place] 102 degrees MUSE SYSTEM INTERPRETATION Sinus tachycardia Occasional Premature ventricular com plexes MUSE SYSTEM Left axis deviation 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) Abnormal ECG When compared with ECG of 08-DEC-2021 16:40, Premature ventricular complexes are now Present Confirmed by MD Jim, Yoon ([id number]) on 12/10/2021 4:55:06 PM Specimen Anatomical Collection Method Collection Time Receive d Time (Source) Location / / Volume Laterality 12/09/2021 7:57 AM 2 4:55 EDT PM EDT Iker Cuevas MD ECG ORDERABLES Performing Organization Address City/State/ZIP Code Phon e Number MUSE SYSTEM (ABNORMAL) POCT Glucose (12/09/2021 7:28 AM EDT) P athologist Signature POC Glucose 263 (H) 65 - 199 [facility] mg/dL [facility] Comment: Supplemental ranges: <140 mg/dL before meals <180 mg/dL all other times of the day Specimen Anatomical Collection Method Collection Time Receive d Time (Source) Location / / Volume Laterality Blood 12/09/2021 7:28 AM 2 7:28 EDT AM EDT Iker Cuevas MD POINT OF CARE TEST ORDERABLE S Performing Organization Address City/State/[place] [address] (ABNORMAL) Hemoglobin A1c (12/09/2021 6:18 AM EDT) Analysis Performed At Patho logist Time Signature Hemoglobin A1C 7.4 (H) 4.3 - 5.6 [facility] Comment: Reference Range: 4.3 - [...] Mellitus, Diabetes Care 2013; 36: Suppl. 1, S67-22 Est Avg Gluc See note mg/dL [facility] Comment: Estimated Average Glucose [...] with hemoglobinopathies. Additional resources are available on [facility] ADA website. Macario HAMMOND, Ruthann J, Deysi R, et al. ??Tr anslating the A1C assay into estimated average glucose values. ??Diabetes Care 2008:31(8):4800-4825. Specimen Anatomical Collection Method Collection Time Receive d Time (Source) Location / / Volume Laterality Blood Venous Draw / 12/09/2021 6:18 AM 12/10/19 22 Unknown EDT 12:24 PM EDT Resulting Agency Comment Spec In Lab Migdalia BROWN CHEMISTRY ORDERABLES Performing Organization Address City/State/[place] [address] (ABNORMAL) Prothrombin Time (12/09/2021 6:18 AM EDT) athologist Signature PT 26.6 (H) 9.4 - 12.5 [facility] LABORATORY INR 2.3 [facility] Comment: An INR [...] Organization Address City/State/[place] [address] Heparin (unfractionated) Level (12/09/2021 6:18 AM EDT) athologist Signature Heparin UFH 0.24 IU/mL [facility] LABORATORY Comment: Heparin (anti-Xa) levels should be [...] Organization Address City/State/[place] [address] (ABNORMAL) Differential, Automated (12/09/2021 6:18 AM EDT) [facility] Method Time Signature Neutrophils % 91.5 % [facility] Neutr Abs (ANC) 15.78 (H) 1.70 - [facility] 6.10 [facility] x10(3)/[facility] LABORATORY Lymphocytes % 2.9 % [facility] Lymphocytes Abs 0.5 (L) 0.9 - 3.2 [facility] x10(3)/[facility] LABORATORY Monocytes % 4.9 % [facility] Monocyte Abs 0.8 0.3 - 0.9 [facility] x10(3)/[facility] LABORATORY Eosinophils % 0.0 % [facility] Eosinophils Abs 0.0 0.0 - 0.4 [facility] x10(3)/[facility] LABORATORY Basophils % 0.2 % [facility] Basophils Abs 0.0 0.0 - 0.1 [facility] x10(3)/[facility] LABORATORY Immature Gran % 0.50 % [facility] Comment: Immature granulocytes(IG's)percentage an d absolute count will include metamyelocytes, myelocytes, and promyelo cytes. Blood smears from CBCs yielding IG's will be scanned manually for concor dance. If this scan disagrees with the automated IG or if promyelocytes are not ed, a manual differential will be performed. Melisa Gran Abs 0.09 (H) 0.00 - 0.04 x10(3)/[facility] LABORATORY Specimen Anatomical Collection Method Collection Time Receive d Time (Source) Location / / Volume Laterality Blood 12/09/2021 6:18 AM 2 6:33 EDT AM EDT Resulting Agency Comment Spec In Lab Morgan BROWN HEMATOLOGY ORDERABLES Performing Organization Address City/State/[place] [address] (ABNORMAL) Hemogram (12/09/2021 6:18 AM EDT) Analysis Performed At Patho logist Time Signature WBC 17.2 (H) 4.0 - 9.5 [facility] LABORATORY RBC 4.32 (L) 4.58 - [place] [facility] 5.54 [facility] x10(6)/[facility] LABORATORY Hemoglobin 12.6 (L) 13.7 - [facility] 16.5 g/dL [facility] Hematocrit 38.9 (L) 40.5 - [facility] 48.5 % [facility] MCV 90.0 82.9 - [facility] 93.1 [facility] LABORATORY MCH 29.2 27.5 - [facility] 32.1 pg [facility] MCHC 32.4 32.0 - [facility] 35.7 g/dL [facility] Platelets 193 145 - 357 [facility] x10(3)/[facility] LABORATORY RDWSD 50.4 (H) 36.0 - [facility] 45.0 [facility] LABORATORY RDWCV 15.2 (H) 11.4 - [facility] 13.8 % [facility] MPV 9.5 7.6 - 12.9 [facility] LABORATORY nRBC % Auto 0.0 % [facility] nRBC Abs Auto 0.000 0.000 - [facility] 0.000 [facility] x10(3)/[facility] LABORATORY Specimen Anatomical Collection Method Collection Time Receive d Time (Source) Location / / Volume Laterality Blood 12/09/2021 6:18 AM 2 6:33 EDT AM EDT Resulting Agency Comment Spec In Lab Morgan BROWN HEMATOLOGY ORDERABLES Performing Organization Address City/State/[place] [address] Lipid Panel (Reflex Direct LDL) (12/09/2021 6:18 AM EDT) P athologist Signature Chol, Total 105 mg/dL [facility] Comment: Lower Risk: <200 mg/dL Average Risk: 200-239 mg/dL Higher Risk: >us=011 mg/dL Triglycerides 133 mg/dL [facility] Comment: Average Risk/Lower Risk: <150 mg/dL Borderline High Risk: 150-199 mg/dL High Risk: 200-499 mg/dL Very High Risk: >ib=304 mg/dL HDL 42 mg/dL [facility] Comment: Males: ?? Higher Risk: <40 mg/dL Females: ?? Higher Risk: <50 mg/dL LDL Cholesterol 36 mg/dL [facility] Comment: Lowest Risk: <100 mg/dL Lower Risk: 100-129 mg/dL Borderline High Risk: 130-159 mg/dL High Risk: 160-189 mg/dL Very High Risk: >cs=439 mg/dL Chol/HDL Ratio 2.[address] [facility] Lipid Interpretation See Note [facility] Comment: Lipid management should be guided by a p atient? s ASCVD risk, goals and preferences. ACC/AHA Guidelines recommend high intens ity statin if clinical ASCVD or LDL greater than or equal to 190 mg/dL. http://LayerGloss.Versus/NCI-CER-Bkgcnakvo Adults aged 40-75 with LDL 70-189 mg/dL should have their 10 year ASCVD risk estimated with the ACC/AHA ASCVD risk es timator http://tools.acc.org/ZEFFC-Vcwk-Vnfkhhme r/ Statin should be discussed if risk [...] City/[facility]/ZIP Code Phon e Number [address] TSH (12/09/2021 6:18 AM EDT) P athologist Signature TSH 1.60 0.27 - 4.20 [place] [facility] mcIU/mL [facility] Comment: Reference Interval (mcIU/mL): Females: ??First Trimester: 0.23-3.88 ??Second Trimester: 0.22-3.90 ??Third Trimester: 0.44-4.66 Specimen Anatomical Collection Method Collection Time Receive d Time (Source) Location / / Volume Laterality Blood 12/09/2021 6:18 AM 2 6:33 EDT AM EDT Resulting Agency Comment Spec In Lab Iker Cuevas MD CHEMISTRY ORDERABLES Performing Organization Address [facility] [place] [address] Hepatic Function Panel (12/09/2021 6:18 AM EDT) P athologist Signature Total Protein 7.3 6.1 - 8.0 [facility] g/dL [facility] Albumin 4.2 3.2 - 5.2 [facility] g/dL [facility] AST 25 0 - 39 [place] [facility] unit/L [facility] ALT 15 0 - 55 [facility] unit/L [facility] Alk Phos 75 40 - 130 [facility] unit/L [facility] Total 1.1 0.2 - 1.3 [facility] Bilirubin mg/dL [facility] Bili, Direct 0.2 0.0 - 0.3 [facility] mg/dL [facility] Specimen Anatomical Collection Method Collection Time Receive d Time (Source) Location / / Volume Laterality Blood 12/09/2021 6:18 AM 2 6:33 EDT AM EDT Resulting Agency Comment Spec In Lab Iker Cuevas MD CHEMISTRY ORDERABLES Performing Organization Address City/[facility]/[place] [address] (ABNORMAL) BMP w/fasting Glucose (12/09/2021 6:18 AM EDT) athologist Signature Glucose 235 (H) 65 - 99 [facility] Fasting mg/dL [facility] Comment: ?Fasting* Glucose Interpretive [...] of Diabetes Mellitus, Position Statement from the [employer]. ??Diabete s Care, Volume 33, Supplement 1, Jul 2009 BUN 49 (H) 10 - 20 mg/dL [facility] Creatinine 1.33 0.80 - 1.50 mg/dL [facility] Sodium 139 135 - 145 [...] estions. Chloride 101 98 - 107 mmol/L [facility] CO2 21 (L) 22 - 31 mmol/L [facility] Anion Gap 17 (H) 5 - 15 mmol/L [facility] Calcium 8.8 8.5 - 10.5 mg/dL [facility] Estimated GFR 52 (L) >=60 mL/min/1.73 m[facility] [...] City/[facility]/[place] [address] Magnesium (12/09/2021 6:18 AM EDT) P athologist Signature Magnesium 0.81 0.69 - 1.07 [facility] mmol/L [facility] Specimen Anatomical Collection Method Collection Time Receive d Time (Source) Location / / Volume Laterality Blood 12/09/2021 6:18 AM 2 6:33 EDT AM EDT Resulting Agency Comment Spec In Lab Iker Cuevas MD CHEMISTRY ORDERABLES Performing Organization Address City/[facility] [place] [address] (ABNORMAL) Troponin (12/09/2021 6:18 AM EDT) P athologist Signature Troponin-T 1.13 (H) 0.00 - [facility] 0.00 ng/mL [facility] Comment: The 99th percentile for Troponin T is le ss than 0.01 ng/mL, any detectable cTnT concentration using this assay should be considered elevated. According to the third universal definit ion of myocardial infarction the following criteria with a clinical prese ntation consistent with acute myocardial ischemia meets the diagnosis for a myocardial infarction ([place]). Detection of a rise and/or fall of [...] Definition of Myocardial Infarction. Journal of the [employer] 2012;60:1581-98 Specimen Anatomical Collection Method Collection Time Receive d Time (Source) Location / / Volume Laterality Blood 12/09/2021 6:18 AM 6:33 EDT AM EDT Resulting Agency Comment Spec In Lab Iker Cuevas MD CHEMISTRY ORDERABLES Performing Organization Address City/State/[place] [address] XR Chest One View [...] who have questions please contact the health rn primary care that requested your imaging first. ? [...] ho have questions please contact the health rn primary care that requested your imaging first. Amber Sanches MD IMG DX ORDERABLES (ABNORMAL) BLOOD GAS 2 ARTERIAL (12/09/2021 5:14 AM EDT) Analysis Performed At Patho logist Time Signature pH Art 7.43 7.35 - [facility] 7.45 [facility] pCO2 Art 36 35 - 45 [facility] LABORATORY pO2 Art 67 (L) 85 - 104 [facility] LABORATORY HCO3 Art 23.4 20.0 - [facility] 26.0 [facility] mmol/L [facility] LABORATORY BE Art -0.9 -3.0 - 3.0 [facility] mmol/L [facility] Hgb Blood Gas 13.2 (L) 13.7 - [facility] 16.5 g/dL [facility] O2HB Art 91.3 (L) 94.0 - [facility] 97.0 % [facility] COHB Art 0.4 % [facility] Comment: Nonsmokers: 0.5-1.5% COHB Smokers: Variable, but usually less than 10% Toxic: 20-30% COHB Lethal: Greater than 60% COHB METHB Art 0.4 <=1.5 % [facility] Na Whole Blood 138 135 - 145 mmol/L [facility] K Whole Blood 4.1 3.5 - 5.0 mmol/L [facility] Comment: Please note: Patients with WBC >100,000 may have falsely elevated Potassium levels. Contact the Clinical Chemistry L aboratory if there are any questions. ICa Whole Blood 1.09 (L) 1.15 - 1.33 mmol/L [facility] Comment: Note: ??Total bilirubin higher than 20 m g/dL may lead to falsely low ionized calcium. CL Whole Blood 104 98 - 107 mmol/L [facility] Gluc Whole Bld 223 (H) 65 - 199 mg/dL [facility] Comment: Diabetes: >=200 mg/dL plus symp toms. Lactate WB 2.7 (H) 0.5 - 2.2 mmol/L [facility] FIO2 Art 35 % [facility] Flow Art 8.0 LPM [facility] PF Ratio Art 191 [facility] LAB[facility]ORY Specimen Anatomical Collection Method Collection Time Receive d Time (Source) Location / / Volume Laterality Blood 12/09/2021 5:14 AM 2 5:14 EDT AM EDT Iker Cuevas MD CHEMISTRY ORDERABLES Performing Organization Address City/State/[place] [address] POCT Glucose (12/09/2021 4:46 AM EDT) athologist Signature POC Glucose 198 65 - 199 [facility] mg/dL [facility] Comment: Supplemental ranges: <140 mg/dL before meals <180 mg/dL all other times of the day Specimen Anatomical Collection Method Collection Time Receive d Time (Source) Location / / Volume Laterality Blood 12/09/2021 4:46 AM 2 4:46 EDT AM EDT Iker Cuevas MD POINT OF CARE TEST ORDERABLE S Performing Organization Address City/State/[place] [address] (ABNORMAL) POCT Glucose (12/09/2021 3:01 AM EDT) athologist Signature POC Glucose 225 (H) 65 - 199 [facility] mg/dL [facility] Comment: Supplemental ranges: <140 mg/dL before meals <180 mg/dL all other times of the day Specimen Anatomical Collection Method Collection Time Receive d Time (Source) Location / / Volume Laterality Blood 12/09/2021 3:01 AM 2 3:01 EDT AM EDT Iker Cuevas MD POINT OF CARE TEST ORDERABLE S Performing Organization Address City/State/[place] [address] (ABNORMAL) POCT Glucose (12/08/2021 10:55 PM EDT) P athologist Signature POC Glucose 327 (H) 65 - 199 [facility] mg/dL [facility] Comment: Supplemental ranges: <140 mg/dL before meals <180 mg/dL all other times of the day Specimen Anatomical Collection Method Collection Time Receive d Time (Source) Location / / Volume Laterality Blood 12/08/2021 10:55 12/08/2021 PM EDT 10:55 PM EDT Iker Cuevas MD POINT OF CARE TEST ORDERABLE S Performing Organization Address City/[facility]/[place] [address] Heparin (unfractionated) Level (12/08/2021 10:03 PM EDT) athologist Signature Heparin UFH 0.18 IU/mL [facility] LABORATORY Comment: Heparin (anti-Xa) levels should be [...] City/[facility]/[place] [address] (ABNORMAL) Troponin (12/08/2021 10:03 PM EDT) athologist Signature Troponin-T 0.92 (H) 0.00 - [facility] 0.00 ng/mL [facility] Comment: The 99th percentile for Troponin T is le ss than 0.01 ng/mL, any detectable cTnT concentration using this assay should be considered elevated. According to the third universal definit ion of myocardial infarction the following criteria with a clinical prese ntation consistent with acute myocardial ischemia meets the diagnosis for a myocardial infarction ([place]). Detection of a rise and/or fall of [...] Definition of Myocardial Infarction. Journal of the [employer] 2012;60:1581-98 Specimen Anatomical Collection Method Collection Time Receive d Time (Source) Location / / Volume Laterality Blood 12/08/2021 10:03 12/08/2021 PM EDT 10:31 PM EDT Resulting Agency Comment Spec In Lab Iker uCevas MD CHEMISTRY ORDERABLES Performing Organization Address City/[facility]/[place] [address] (ABNORMAL) POCT Glucose (12/08/2021 8:22 PM EDT) athologist Signature POC Glucose 429 (H) 65 - 199 [facility] Comment: Supplemental ranges: <140 mg/dL before meals <180 mg/dL all other times of the day Specimen Anatomical Collection Method Collection Time Receive d Time (Source) Location / / Volume Laterality Blood 12/08/2021 8:22 PM 8:22 EDT PM EDT Iker Cuveas MD POINT OF CARE TEST ORDERABLE S Performing Organization Address City/[facility]/[place] [address] (ABNORMAL) POCT Glucose (12/08/2021 7:06 PM EDT) athologist Signature POC Glucose 442 (H) 65 - 199 [facility]dL [facility]OR[facility] Comment: Supplemental ranges: <140 mg/dL before meals <180 mg/dL all other times of the day Specimen Anatomical Collection Method Collection Time Receive d Time (Source) Location / / Volume Laterality Blood 12/08/2021 7:06 PM 2 7:06 EDT PM EDT Iker Cuevas MD POINT OF CARE TEST ORDERABLE S Performing Organization Address City/[facility]/ZIP Code Phon e Number [address] Magnesium (12/08/2021 6:02 PM EDT) athologist Signature Magnesium 0.86 0.69 - 1.07 [facility] mmol/L [facility] LABORATORY Specimen Anatomical Collection Method Collection Time Receive d Time (Source) Location / / Volume Laterality Blood 12/08/2021 6:02 PM 2 6:36 EDT PM EDT Resulting Agency Comment Spec In Lab Iker Cuevas MD CHEMISTRY ORDERABLES Performing Organization Address City/State/[place] [address] (ABNORMAL) Basic Metabolic Panel (non-fasting) (12/08/2021 6:02 PM EDT) athologist Signature Glucose Lvl 392 (H) 65 - 199 [facility] mg/dL [facility] Comment: Diabetes: >=200 mg/dL plus symp toms BUN 41 (H) 10 - 20 mg/dL [facility] LABORATORY Creatinine 1.44 0.80 - 1.50 mg/dL [facility] [...] estions. Chloride 102 98 - 107 mmol/L [facility] LABORATORY CO2 20 (L) 22 - 31 mmol/L [facility] Anion Gap 16 (H) 5 - 15 mmol/L [facility] Calcium 8.6 8.5 - 10.5 mg/dL [facility] LABORATORY Estimated GFR 47 (L) >=60 mL/min/1.73 m?? [facility] [...] Organization Address City/State/[place] [address] (ABNORMAL) Differential, Automated (12/08/2021 6:02 PM EDT) [facility] gist Method Time Signature Neutrophils % 89.5 % [facility] LABORATORY Neutr Abs (ANC) 13.97 (H) 1.70 - [facility] 6.10 [facility] x10(3)/[facility] L LABORATORY Lymphocytes % 3.7 % [facility] LABORATORY Lymphocytes Abs 0.6 (L) 0.9 - 3.2 [facility] x10(3)/[facility] LABORATORY Monocytes % 6.1 % [facility] LABORATORY Monocyte Abs 1.0 (H) 0.3 - 0.9 [facility] x10(3)/[facility] LABORATORY Eosinophils % 0.0 % [facility] LABOR[facility]ORY Eosinophils Abs 0.0 0.0 - 0.4 [facility] x10(3)/[facility] LABORATORY Basophils % 0.2 % [facility] LABOR[facility]ORY Basophils Abs 0.0 0.0 - 0.1 [facility] x10(3)/[facility] LABORATORY Immature Gran % 0.50 % [facility] LABORATORY Comment: Immature [...] Organization Address City/State/[place] [address] (ABNORMAL) Hemogram (12/08/2021 6:02 PM EDT) Analysis Performed At Patho logist Time Signature WBC 15.6 (H) 4.0 - 9.5 [facility] x10(3)/[facility] LABORATORY RBC 4.05 (L) 4.58 - [facility] 5.54 [facility] x10(6)/[facility] LABORATORY Hemoglobin 11.8 (L) 13.7 - [facility] 16.5 g/dL [facility] Hematocrit 35.8 (L) 40.5 - [facility] 48.5 % [facility] MCV 88.4 82.9 - [facility] 93.1 fL [facility] MCH 29.1 27.5 - [facility] 32.1 pg [facility] MCHC 33.0 32.0 - [facility] 35.7 g/dL [facility] Platelets 178 145 - 357 [facility] x10(3)/[facility] LABORATORY RDWSD 49.3 (H) 36.0 - [facility] 45.0 [facility] LABORATORY RDWCV 15.1 (H) 11.4 - [facility] 13.8 % [facility] LABORATORY MPV 10.4 7.6 - 12.9 [place] [facility] [facility] LABORATORY nRBC % Auto 0.0 % [facility] LABORATORY nRBC Abs Auto 0.000 0.000 - [facility] 0.000 [facility] x10(3)/[facility] LABORATORY Specimen Anatomical Collection Method Collection Time Receive d Time (Source) Location / / Volume Laterality Blood 12/08/2021 6:02 PM 6:36 EDT PM EDT Resulting Agency Comment Spec In Lab Morgan BROWN HEMATOLOGY ORDERABLES Performing Organization Address City/State/[place] [address] (ABNORMAL) Troponin (12/08/2021 6:02 PM EDT) P athologist Signature Troponin-T 0.89 (H) 0.00 - [facility] 0.00 ng/mL [facility] Comment: The 99th percentile for Troponin T is le ss than 0.01 ng/mL, any detectable cTnT concentration using this assay should be considered elevated. According to the third universal definit ion of myocardial infarction the following criteria with a clinical prese ntation consistent with acute myocardial ischemia meets the diagnosis for a myocardial infarction (VA). Detection of a rise and/or fall of [...] Definition of Myocardial Infarction. Journal of the [employer] College [employer] 2012;60:1581-98 Specimen Anatomical Collection Method Collection Time Receive d Time (Source) Location / / Volume Laterality Blood 12/08/2021 6:02 PM 6:36 EDT PM EDT Resulting Agency Comment Spec In Lab Iker Cuevas MD CHEMISTRY ORDERABLES Performing Organization Address City/State/ZIP Code [place] [address] COVID-19 PCR (12/08/2021 5:00 PM EDT) [facility] Method Time Signature SARS-CoV-2 Not Detected Not Detected [facility] RNA PCR [facility] LABORATORY Comment: This result should be interpreted [...] using the Simplexa COVID-19 Direct Assay by [facility] Researchjoi marcum as authorized by the FDA issued [...] Department of Pathology and Laboratory Medicine at [facility], certified under the Clinical [...] fact sheets at the following FDA website: https://www.fda.gov/medical-devices/rzrvxneziap-ofpixsg-2260-oedvi-51-thzvmtyoy- kgl-sfgipeihmozgch-sgbvlcr-devices/hcvco-zfnyhoeqvav-fvgx SARS-CoV-2 Source TRAFFIC EXPERT Swab [facility] LABORATORY Specimen (Source) Anatomical Collection Method Collection Time Re ceived Time Location / / Volume Laterality Nasopharyngeal Swab 12/08/2021 5:00 12/08 PM EDT 6:03 PM EDT Comment: Symptoms->Surveillance Resulting Agency Comment Spec In Lab Iker Cuevas MD MICROBIOLOGY - GENERAL ORDER [place] Performing Organization Address City/State/[place] [address] EKG 12 Lead (12/08/2021 4:40 PM EDT) Component Value Ref Range Test Analysis Performed Pathologis t Method Time At Signature Ventricular rate 78 BPM MUSE SYSTEM Atrial Rate 78 BPM MUSE SYSTEM P-R Interval 152 ms MUSE SYSTEM QRS Duration 96 ms MUSE SYSTEM Q-T Interval 396 ms MUSE SYSTEM QTC Calculated 451 ms MUSE SYSTEM (Bezet) Calculated P [place] 44 degrees MUSE SYSTEM Calculated R [place] -31 degrees MUSE SYSTEM Calculated T [place] 124 degrees MUSE SYSTEM INTERPRETATION Normal sinus [...] POC Glucose 400 (H) 65 - 199 [facility] mg/dL [facility] Comment: Supplemental ranges: <140 mg/dL before meals <180 mg/dL all other times of the day Specimen Anatomical Collection Method Collection Time Receive d Time (Source) Location / / Volume Laterality Blood 12/08/2021 4:34 PM 2 4:34 EDT PM EDT Iker Cuevas MD POINT OF CARE TEST ORDERABLE S Performing Organization Address City/State/[place] [address] documented in this encounter [...] IV access, 1 mg Glucagon IM. Rech aiayna BG in 30 minutes. May repeat juice/soda, [...] Given 11/23 10:30 AM EDT 300 mcg (QUALITY ASSURANCE ADVISOR) ONCE PRN, Starting on Wed12/10/21 at 1030, [...] RN) 0000 (Not Given - Provider: Derrick Glaeas RN - Reason: Order parameters not met)0400 [...] 12/12/2021 acetaminophen (Tylenol) tablet 650 mg 0805 ([facility] Hold - Provider: Admin Adt - Reason: Transfer to a Procedural area)1230 ([facility] Unhold - Provider: Admin Adt) 650 [...] Routine bisacodyL (Dulcolax) suppository 10 mg 0805 ([facility] Hold - Provider: Admin Adt - Reason: Transfer to a Procedural area)1230 ([facility] Unhold - Provider: Admin Adt) 10 mg, Rectal, DAILY PRN, Starting on e 12/09/21 at 1629, Until Wed12/12/21 at 1312, Constipation, Routine dextrose 10% infusion(Linked Group 2) 0805 ([facility] Hold - Provider: Admin Adt - Reason: Transfer to a Procedural area)1230 ([facility] Unhold - Provider: Admin Adt) 250 [...] injection (CANCELED ) 0907 (Given - Provider: Mnedy Schaffer)0918 (Given - Provider: Mendy Schaffer)0933 (Given [...] (Intra-Procedure), Routine niCARdipine (Cardene) (100 mcg/mL) dilution (QUALITY ASSURANCE ADVISOR) (CANCELED) 1030 (Given - Provider: Vitaliy Nobles [...] episode. & nbsp; For persistent hypoglycemia, con hose seamer longer-acting treatment for the duration of the [...]
Routine documented in this encounter Care Teams Alcohol Law Enforcement Agent Relationship Specialty Start Date End Date Lovely Vicente MD PCP - General 04/16/15 [address] [place] [address] documented as of this encounter
--- OUTSIDE RECORDS SUMMARY | 2022-02-18 08:13 | XMS_ITS | Encounter Summary ---
:1945 Author Organization [facility] Address [facility] [address] [place] [address] Care Team Providers Name Role Phone Lovely Vicente MD Primary Care Provider Reason for Referral Diagnostic Test (Routine) - Closed Specialty Diagnoses / Procedures Referred By Contact Refer red To Contact Cardiology Diagnoses Chronic systolic heart failure Danette Maxwell APRN [facility] Non-Inv Card Lab Procedures Echocardiogram Transthoracic(Leb) [facility] [place] [address] [place] [address] Referral ID Status Reason Start Date Expiration Date Visits V isits Requested Authorized [id number] Closed Specialty 07/17/2019 09/14/2019 1 1 Service Requested Encounter Details Date Type Department Care Team Description 01/16/2019 Office Visit Cardiology at [facility] Danette Maxwell, Chronic systolic heart failu re; [facility] STACIE Cardiomyopathy, ischemic; Drive [facility] Hx of thyroid cancer; [place], [place] [address] (arteriosclerotic heart disease); [phone] CARDIOLOGY MARIA VICTORIA (obstructive sleep apnea) on CPAP [phone] [place], [place] [address] (Wo rk) Social History Tobacco Use Types [...] K+ 4.6 today 6. Post-op atrial fibrillation [id number] 7 (CHF, HTN, DM, vascular disease, thromboembolism) Amiodarone discontinued Continue coumadin INR managed by PCP. 2.1 today 7. PAD 08/06/2017: Right 1st, 2nd, 3rd toe amputation 08/11/2017: Left??femoral arterial access, RLE??angiogram, Balloon angioplasty of R PT with Eleazar 2.5 x 80 10/25/2017: right popliteal-pedal bypass at [facility] 8. Hypothyrodism S/p thyroidectomy for goiter [...] [facility] Dept [place], [place] [address] (Wo rk) 03/26/2022 Office Visit Cardiology Vitaliy Nobles MD [facility] ER CARDIOLOGY [place], [place] [address] (Wo rk) documented as of this encounter Results ECHOCARDIOGRAM COMPLETE W CONTRAST (07/28/2019 8:19 AM EST) P athologist Signature EF 40 HEARTLAB SYSTEM Specimen (Source) Anatomical Location Collection Method / Collectio n Time Received Time / Laterality Volume 07/28/2019 Narrative [facility]ART[facility] SYSTEM - 07/28/2019 8:38 AM EST Procedure: ?Transthoracic Echocardiogram Patient: ?NAATLYA Mccollum ? (Age): 1945(74y) Med Rec#: ? [id number] ?Sex: ?M ? Site Loc: ? [facility] ?Ht / Wt: ??172(cm)/81(kg) Pt. Loc: ?Echo Lab ?BSA: ?1.94 Study Date: ?? 07/28/2019 ?Pt. Type: Outpatient Tape: ? Referring: MARY ELLEN Reading: Ifeanyi Truong ([id number]) Oil Well Logging Engineer: Fadumo Flanagan RDCS, REGINA Diagnosis: *Chronic systolic [...] E-wave Vmax ?1 ?m/sec ? MV deceleration [id number] ? msec ? MV A-wave Vmax ?1 [...] ? Pulmonic Valve/Qp:Qs ?Value ?Units (Range) ? MS end-diastolic Vma1.1 ?m/sec ? Wall Motion: Segment Name ?Rest ? Base-Anteroseptal ?? Normal ? Base-Anterior ? Normal ? Base-Anterolateral ??Normal ? Base-Posterolateral Normal ? Base-Inferior ? Akinetic ? Base-Inferoseptal ?? Normal ? Mid-Anteroseptal ?Normal ? Mid-Anterior ?Hypokinetic ? Mid-Anterolateral ?? Normal ? Mid-Posterolateral ??Normal ? Mid-Inferior ?Hypokinetic ? Mid-Inferoseptal ?Normal ? [place]-Septal ? Normal ? [place]-Anterior ? Hypokinetic ? [place]-Lateral ?Normal ? [place]-Inferior ? Akinetic ? [place]-Tip ?Hypokinetic ? This report has been electronically sign ed by: _ Ifeanyi Truong M.D. ? 07/28/2019 0 8:38:01 Images reviewed and interpretation [facility] Procedure Note Ifeanyi Truong MD - 07/28/2019Formatt ing of this note might be different from the original. Procedure: Transthoracic Echocardiogram Patient: NATALYA MCBRIDE(Age): [birth year]74y) Med Rec#: [id number] Sex: M Site Loc: [facility] Ht / Wt: 172(cm)/81(kg) Pt. Loc: Echo Lab BSA: 1.94 Study Date: 07/28/2019 Pt. Type: Outpati ent Tape: Referring: MARY ELLEN Reading: Ifeanyi Truong ([id number]) Oil Well Logging Engineer: Fadumo Flanagan RDCS, FASE Diagnosis: *Chronic systolic [...] MV E-wave Vmax 1 m/sec MV deceleration [id number] msec MV A-wave Vmax 1 m/sec MV [...] 0.7 ratio Pulmonic Valve/Qp:Qs Value Units (Range) MS end-diastolic Vma1.1 m/sec Wall Motion: Segment Name Rest Base-Anteroseptal Normal Base-Anterior Normal Base-Anterolateral Normal Base-Posterolateral Normal Base-Inferior Akinetic Base-Inferoseptal Normal Mid-Anteroseptal Normal Mid-Anterior Hypokinetic Mid-Anterolateral Normal Mid-Posterolateral Normal Mid-Inferior Hypokinetic Mid-Inferoseptal Normal [place]-Septal Normal [place]-Anterior Hypokinetic [place]-Lateral Normal [place]-Inferior Akinetic [place]-Tip Hypokinetic This report has been electronically sign ed by: _ Ifeanyi Truong M.D. 07/28/2019 08:38:0 1 Images reviewed and interpretation verif iewanda [facility] Cardiac Ultrasound Laboratory Danette Maxwell APRN ECHO ORDERABLES Performing Organization Address City/State/ZIP Code Phon e Number HEARTLAB SYSTEM (ABNORMAL) Basic Metabolic Panel (non-fasting) (01/16/2019 7:49 AM EDT) P athologist Signature Glucose Lvl 105 65 - 199 [facility] mg/dL [facility] LABORATORY Comment: Diabetes: >=200 mg/dL plus symp toms BUN 25 (H) 10 - 20 mg/dL [facility] LABORATORY Creatinine 1.08 0.80 - 1.50 mg/dL [facility] LABORATORY Sodium 145 135 - 145 mmol/L [facility] LABORATORY Potassium 4.7 3.5 - 5.0 mmol/L [facility] LABOR[facility]ORY Comment: Please note: ??Patients with WBC >100,00 0 may have falsely elevated Potassium levels. ??For accurate Potassium quantif ication in these patients send serum separator tube (gold top) for subsequent determinations. ??Contact the Clinical Chemistry Laboratory if there are any qu estions. Chloride 106 98 - 107 mmol/L [facility] LABORATORY CO2 26 22 - 31 mmol/L [facility] LABORATORY Anion Gap 13 5 - 15 mmol/L [facility] LABORATORY Calcium 9.2 8.5 - 10.5 mg/dL [facility] LABORATORY Estimated GFR 68 >=60 mL/min/1.73 m?? [facility] LABOR[facility] Comment: The eGFR was calculated using the CKD-EP I equation. As with all creatinine based estimates of kidney function, eGFR values calculated with the CKD-EPI equation are not accurate in patients wi th acute kidney failure, extremes of body mass or the acutely ill. http://[employer]/PressConnectnkf eGFR 79 >=60 mL/min/1.73 m?? [facility] LABORATORY Comment: The eGFR was calculated using the CKD-EP I equation. As with all creatinine based estimates of kidney function, eGFR values calculated with the CKD-EPI equation are not accurate in patients wi th acute kidney failure, extremes of body mass or the acutely ill. http://[employer]/DHnkf Specimen Anatomical Collection Method Collection Time Receive d Time (Source) Location / / Volume Laterality Blood specimen 01/16/2019 7:49 AM 019 7:55 (specimen) EDT AM EDT Resulting Agency Comment Spec In Lab Danette Maxwell APRN CHEMISTRY ORDERABLES Performing Organization Address City/State/[place] [address] (ABNORMAL) pro-Brain Natriuretic Peptide (01/16/2019 7:49 AM EDT) P athologist Signature ProBNP 780 (H) <=125 pg/mL [facility] LABOR[facility]ORY Specimen Anatomical Collection Method Collection Time Receive d Time (Source) Location / / Volume Laterality Blood specimen 01/16/2019 7:49 AM 019 7:55 (specimen) EDT AM EDT Resulting Agency Comment Spec In Lab Danette Maxwell APRN CHEMISTRY ORDERABLES Performing Organization Address City/State/ZIP Code [place] [address] documented in this encounter Visit Diagnoses Diagnosis Chronic systolic heart failure Cardiomyopathy, ischemic Other specified forms of chronic ischemi c heart disease Hx of thyroid cancer Personal history of malignant neoplasm o f thyroid ASHD (arteriosclerotic heart disease) Coronary atherosclerosis of unspecified type of vessel, [place] or graft MARIA VICTORIA (obstructive sleep apnea) on CPAP Obstructive sleep apnea (adult) (pediatr ic) Chronic systolic heart failure Chronic systolic heart failure documented in this encounter Care Teams Plating Tank Operator Relationship Specialty Start Date End Date Lovely Vicente MD PCP - General 04/16/[address] [place] [address] documented as of this encounter
--- OUTSIDE RECORDS SUMMARY | 2022-02-18 08:13 | XMS_ITS | Encounter Summary ---
:1945 Author Organization [facility] [place] [address] Care Team Providers Name Role Phone Lovely Vicente MD Primary Care Provider Encounter Details Date Type Department Care Team Description 04/16/2021 Laboratory Appointment Lab 3L [facility] systolic [facility] [place] [id number] Social History Tobacco Use Types Packs/Day Years [...] PA [facility] er Cardiology Dept [place], [place] [address] (Wo rk) 03/26/2022 Office Visit Cardiology Vitaliy Nobles MD [facility] ER CARDIOLOGY [place], [place] [address] (Wo rk) documented as of [...] athologist Signature ProBNP 523 (H) <=124 pg/mL [facility] LABORATORY Specimen Anatomical Collection Method Collection Time Receive d Time (Source) Location / / Volume Laterality Blood 04/16/2021 9:58 AM EDT 10:02 AM EDT Resulting Agency Comment Spec In Lab Zulma Plunkett MD CHEMISTRY ORDERABLES Performing Organization Address City/State/[place] [address] (ABNORMAL) Basic Metabolic Panel (non-fasting) (04/16/2021 9:58 AM EDT) athologist Signature Glucose Lvl 77 65 - 199 [facility] mg/dL [facility] Comment: Diabetes: >=200 mg/dL plus symp toms BUN 23 (H) 10 - 20 mg/dL [facility] LABORATORY Creatinine 1.26 0.80 - 1.50 mg/dL [facility] LABORATORY Sodium 140 135 - 145 mmol/L [facility] LABORATORY Potassium 5.2 (H) 3.5 - 5.0 mmol/L [facility]OR[facility] Comment: Please note: ??Patients with WBC >100,00 0 may have falsely elevated Potassium levels. ??For accurate Potassium quantif ication in these patients send serum separator tube (gold top) for subsequent determinations. ??Contact the Clinical Chemistry Laboratory if there are any qu estions. Chloride 103 98 - 107 mmol/L [facility] LABORATORY CO2 28 22 - 31 mmol/L [facility] LABORATORY Anion Gap 9 5 - 15 mmol/L [facility] LABORATORY Calcium 9.3 8.5 - 10.5 mg/dL [facility] LABORATORY Estimated GFR 55 (L) >=60 mL/min/1.73 m?? [facility] [...] Organization Address City/State/[place] [address] documented in this encounter Visit Diagnoses Diagnosis Chronic systolic heart failure Chronic systolic heart failure documented in this encounter Care Teams Regional Guide Relationship Specialty Start Date End Date Lovely Vicente MD PCP - General 04/16/[address] [place] [address] documented as of this encounter
--- OUTSIDE RECORDS SUMMARY | 2022-02-18 08:13 | XMS_ITS | Encounter Summary ---
:1945 Author Organization [facility] [place] [address] Care Team Providers Name Role Phone Lovely Vicente MD Primary Care Provider Reason for Referral Diagnostic Test (Routine) - Closed Specialty Diagnoses / Procedures Referred By Contact Refer red To Contact Diagnoses Chronic systolic heart failure Liz Poole PA Procedures Echocardiogram Transthoracic([facility] [place] [address] Referral ID Status Reason Start Date Expiration Date Visits V isits Requested Authorized [id number] Closed Specialty 04/17/2021 10/14/2021 1 1 Service Requested Encounter Details Date Type Department Care Team Description 04/16/2021 Office Visit Card[facility] [place] [facility] [place] Poole, Chronic systolic heart [facility] [place] [address] Cardiology Dept [phone] [place], [place] [address] Social History Tobacco Use Types [...] was feeling good. 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 07/07/2019 - 07/21/2019 Zio Patch Special Systems Technician The patient had a minimum heart [...] of heart failure. 1. ASCVD S/p CABG, HTOMPSON->LAD, Seq SVG->OM1->D1 (07/07/2017) Continue metoprolol XL 25 [...] K+ 5.2 today 6. Post-op atrial fibrillation [id number] (CHF, HTN, DM, vascular disease, thromboembolism) On warfarin - recent labile INR Will discuss with PCP, option of Eliquis 7. PAD 08/06/2017: Right 1st, 2nd, 3rd toe amputation 08/11/2017: Left??femoral arterial access, RLE??angiogram, Balloon angioplasty of R PT 10/25/2017: right popliteal-pedal bypass at [facility] 8. Hypothyrodism S/p thyroidectomy for goiter Continue [...] Liz Poole PA [facility] Cardiology Dept [place], [place] [address] (Mikayla alcaraz) 03/26/2022 Office Visit Cardiology Vitaliy Nobles MD [facility] CARDIOLOGY [place], [place] [address] (Mikayla alcaraz) Scheduled Orders Name Type Priority Associated Order Schedule Diagnoses Echocardiogram Echocardiography Routine Chronic systolic Expec vlad: Transthoracic([facility] or heart failure 10/15 NL) (Approximate), Expires: 04/16/2022 documented as of this encounter Results (ABNORMAL) Basic Metabolic Panel (non-fasting) (04/16/2021 9:58 AM EDT) athologist Signature Glucose Lvl 77 65 - 199 [facility] mg/dL [facility] Comment: Diabetes: >=200 mg/dL plus symp toms BUN 23 (H) 10 - 20 mg/dL [facility] Creatinine 1.26 0.80 - 1.50 mg/dL [facility] Sodium 140 135 - 145 mmol/L [facility] Potassium 5.2 (H) 3.5 - 5.0 mmol/L [facility] Comment: Please note: ??Patients with WBC >100,00 0 may have falsely elevated Potassium levels. ??For accurate Potassium quantif ication in these patients send serum separator tube (gold top) for subsequent determinations. ??Contact the Clinical Chemistry Laboratory if there are any qu estions. Chloride 103 98 - 107 mmol/L [facility] CO2 28 22 - 31 mmol/L [facility] Anion Gap 9 5 - 15 mmol/L [facility] Calcium 9.3 8.5 - 10.5 mg/dL [facility] Estimated GFR 55 (L) >=60 mL/min/1.73 m?? [facility] [...] Organization Address City/State/[place] [address] (ABNORMAL) pro-Brain Natriuretic Peptide (04/16/2021 9:58 AM EDT) P athologist Signature ProBNP 523 (H) <=124 pg/mL [facility] Specimen Anatomical Collection Method Collection Time Receive d Time (Source) Location / / Volume Laterality Blood 04/16/2021 9:58 AM EDT 10:02 AM EDT Resulting Agency Comment Spec In Lab Zulma Plunkett MD CHEMISTRY ORDERABLES Performing Organization Address City/State/[place] [address] documented in this encounter Visit Diagnoses Diagnosis Chronic systolic heart failure Chronic systolic heart failure documented in this encounter Care Teams Sleever Relationship Specialty Start Date End Date Lovely Vicente MD PCP - General 04/16/[address] [place] [address] documented as of this encounter
--- OUTSIDE RECORDS SUMMARY | 2022-02-18 08:13 | XMS_ITS | Encounter Summary ---
:1945 Author Organization [facility] [place] [address] Care Team Providers Name Role Phone Lovely Vicente MD Primary Care Provider Encounter Details Date Type Department Care Team Description 11/07/2019 TH Visit Cardiology at [facility] Danette Maxwell (arteriosclerotic heart disease); (TeleHealth) [facility] STACIE Gomes Cardiomyopathy, ischemic; Drive [facility] S/P CABG x 3; [place], [place] MARIA VICTORIA (obstructive sleep apnea) on CPAP [phone] CARDIOLOGY [phone] [place], [place] [address] Social History Tobacco Use Types [...] regurgitation present. 07/07/2019 - 07/21/2019 Zio Patch Engine Service Repairer The patient had a minimum heart rate [...] at last check 6. Post-op atrial fibrillation [id number] 7 (CHF, HTN, DM, vascular disease, thromboembolism) Amiodarone discontinued Continue coumadin INR managed by PCP 7. PAD 08/06/2017: Right 1st, 2nd, 3rd toe amputation 08/11/2017: Left??femoral arterial access, RLE??angiogram, Balloon angioplasty of R PT with Eleazar 2.5 x 80 10/25/2017: right popliteal-pedal bypass at [facility] Continue Coumadin 8. Hypothyrodism S/p thyroidectomy [...] [facility] er Cardiology Dept [place], [place] [address] (Wo rk) 03/26/2022 Office Visit Cardiology Vitaliy Nobles MD [facility] CARDIOLOGY [place], [place] [address] (Wo rk) documented as of this encounter Visit Diagnoses Diagnosis ASHD (arteriosclerotic heart disease) Coronary atherosclerosis of unspecified type of vessel, absentee-shawnee or graft Cardiomyopathy, ischemic Other specified forms of chronic ischemi c heart disease S/P CABG x 3 Postsurgical aortocoronary bypass status MARIA VICTORIA (obstructive sleep apnea) on CPAP Obstructive sleep apnea (adult) (pediatr ic) Chronic systolic heart failure documented in this encounter Care Teams Unisaw Operator Relationship Specialty Start Date End Date Lovely Vicente MD PCP - General 04/16/[address] [place], [place] [address]Y [facility] [address] [place] [address] documented as of this encounter
--- OUTSIDE RECORDS SUMMARY | 2022-02-18 08:13 | XMS_ITS | Encounter Summary ---
:1945 Author Organization [facility] Address [facility] [place] [address] Care Team Providers Name Role Phone Lovely Vicente MD Primary Care Provider Encounter Details Date Type Department Care Team Description 01/02/2020 Office Visit Dermatology at Rig[facility]to Forman ctinic keratoses; Abdelrahman HOOPER MD History of melanoma; [address] [facility] History of dysplastic nevus; [place] [address] Multiple benign nevi; [phone] [facility] Seborrheic yossi lancaster; RD-DERMATOLGY Skin exam for malignant neoplasm [place], [place] [address] Social History Tobacco Use Types [...] - Actinic keratoses (LN2) - Psoriasis HPI Dno Fatima is a 74 y.o. year old [...] encounter. Rigoberto Garcia MD Section of Dermatology [facility] documented in this encounter Plan of Treatment Upcoming Encounters Date Type Specialty Care Team Description 02/19/2022 Laboratory Appointment Lab 02/19/2022 Office Visit Cardiology Liz Poole PA [facility] [place], [place] [address] (Wo rk) 03/26/2022 Office Visit Cardiology Vitaliy Nobles MD [facility] CARDIOLOGY [place], [place] [address] (Wo rk) documented as of [...] Screening for malignant neoplasm of the skin Chronic systolic heart failure documented in this encounter Care Teams Manager Steel Relationship Specialty Start Date End Date Lovely Vicente MD PCP - General 04/16/[address] [place] [address] documented as of this encounter
--- OUTSIDE RECORDS SUMMARY | 2022-02-18 08:13 | XMS_ITS | Encounter Summary ---
:1945 Author Organization [facility] [place] [address] Care Team Providers Name Role Phone Lovely Vicente MD Primary Care Provider Reason for Referral Diagnostic Test (Routine) - Closed Specialty Diagnoses / Procedures Referred By Contact Refer red To Contact Cardiology Diagnoses Chronic systolic heart failure Danette Maxwell APRN [facility] Non-Inv Card Lab Procedures Echocardiogram Transthoracic(Leb) [facility] [place] [address] [place] [address] Referral ID Status Reason Start Date Expiration Date Visits V isits Requested Authorized [id number] Closed Specialty 07/17/2019 09/14/2019 1 1 Service Requested Reason for Visit Diagnostic Test (Routine) - Closed Specialty Diagnoses / Procedures Referred By Contact Refer red To Contact Cardiology Diagnoses Chronic systolic heart failure Danette Maxwell APRN [facility] Non-Inv Card Lab Procedures Echocardiogram Transthoracic(Leb) [facility] [place] [address] [place] [address] Referral ID Status Reason Start Date Expiration Date Visits V isits Requested Authorized [id number] Closed Specialty 07/17/2019 09/14/2019 1 1 Service Requested Encounter Details Date Type Department Care Team Description 07/28/2019 Hospital Encounter Non-Invasive Chronic s ystolic heart [place] [address] Social History Tobacco Use Types Packs/Day [...] Poole PA [facility] Cardiology Dept [place], [place] [address] (Wo rk) 03/26/2022 Office Visit Cardiology Vitaliy Nobles MD [facility] CARDIOLOGY [place], [place] [address] (Wo rk) documented [...] Mccollum ? (Age): 1945(74y) Med Rec#: ? [id number] ?Sex: ?M ? Site Loc: ? [facility] ?Ht / Wt: ??172(cm)/81(kg) Pt. Loc: ?Echo Lab ?BSA: ?1 Study Date: ?? 07/28/2019 ?Pt. Type: Outpatient Tape: ? Referring: MARY ELLEN Reading: Ifeanyi Truong ([id number]) Critical Care Rn: Fadumo Flanagan RDCS, FASE Diagnosis: *Chronic systolic [...] E-wave Vmax ?1 ?m/sec ? MV deceleration iecc244.5 ? msec ? MV A-wave Vmax ?1 [...] ? Mid-Inferior ?Hypokinetic ? Mid-Inferoseptal ?Normal ? [place]-Septal ? Normal ? [place]-Anterior ? Hypokinetic ? [place]-Lateral ?Normal ? [place]-Inferior ? Akinetic ? [place]-Tip ?Hypokinetic ? This report has been electronically sign ed by: _ Ifeanyi Truong M.D. ? 07/28/2019 0 8:38:01 Images reviewed and interpretation verholger iewanda [facility] Cardiac Ultrasound Laboratory Procedure Note Ifeanyi Truong MD - 07/28/2019Formatt ing of this note might be different from the original. Procedure: Transthoracic Echocardiogram Patient: NATALYA MCBRIDE(Age): [birth year]74y) Med Rec#: [id number] Sex: M Site Loc: [facility] Ht / Wt: 172(cm)/81(kg) Pt. Loc: Echo Lab BSA: 1.94 Study Date: 07/28/2019 Pt. Type: Outpati ent Tape: Referring: MARY ELLEN Reading: Ifeanyi Truong ([id number]) Critical Care Rn: Fadumo Flanagan RDCS, REGINA Diagnosis: *Chronic systolic [...] MV E-wave Vmax 1 m/sec MV deceleration eeci349.5 msec MV A-wave Vmax 1 m/sec MV [...] Normal Mid-Posterolateral Normal Mid-Inferior Hypokinetic Mid-Inferoseptal Normal [place]-Septal Normal [place]-Anterior Hypokinetic [place]-Lateral Normal [place]-Inferior Akinetic [place]-Tip Hypokinetic This report has been electronically sign ed by: _ Ifeanyi Truong M.D. 07/28/2019 08:38:0 1 Images reviewed and interpretation verif ied [facility] Cardiac Ultrasound Laboratory Danette A Hans WIRE COINER ECHO ORDERABLES Performing Organization Address City/State/ZIP Code [...] Routine documented in this encounter Care Teams Vacuum Worker Relationship Specialty Start Date End Date Lovely Vicente MD PCP - General 04/16/[address] [place] [address] documented as of this encounter
--- OUTSIDE RECORDS SUMMARY | 2022-02-18 08:13 | XMS_ITS | Encounter Summary ---
:1945 Author Organization [facility] [place] [address] Care Team Providers Name Role Phone Lovely Vicente MD Primary Care Provider Encounter Details Date Type Department Care Team Description 12/07/2021 External [place] [address] Social History Tobacco Use Types Packs/Day [...] Liz Poole PA [facility] Cardiology Dept [place], [place] [address] (Wo rk) 03/26/2022 Office Visit Cardiology Vitaliy Nobles MD [facility] CARDIOLOGY [place], [place] [address] (Wo rk) documented as of [...] on filedocumented in this encounter Care Teams Leisure Travel Agent Relationship Specialty Start Date End Date Lovely Vicente MD PCP - General 04/16/[address] [place] [address] documented as of this encounter
--- OUTSIDE RECORDS SUMMARY | 2022-02-18 08:13 | XMS_ITS | Encounter Summary ---
:1945 [place] [address] Care Team Providers Name Role Phone Lovely Vicente MD Primary Care Provider Encounter Details Date Type Department Care Team Description 07/12/2019 Office Visit Dermatology at Selina Garcia, Rigoberto Yarbrough (actinic keratosis); MD SHAY Quick III (seborrheic keratosis); [address] [facility] Multiple benign nevi; [place] [address] History of melanoma [phone] [facility] [place], [place] [address] Social History Tobacco Use Types [...] Cardiology Liz Poole PA [facility] er Cardiology Dept [place], [place] [address] (Wo rk) 03/26/2022 Office Visit Cardiology Vitaliy Nobles MD [facility] CARDIOLOGY [place], [place] [address] (Wo rk) documented as of this encounter Visit Diagnoses Diagnosis AK (actinic keratosis) Actinic keratosis SK (seborrheic keratosis) Other seborrheic keratosis Multiple benign nevi Benign neoplasm of skin, site unspecifie d History of melanoma Personal history of malignant melanoma o f skin Chronic systolic heart failure documented in this encounter Care Teams Community Development Officer Relationship Specialty Start Date End Date Lovely Vicente MD PCP - General 04/16/[address] [place] [address] documented as of this encounter
--- OUTSIDE RECORDS SUMMARY | 2022-02-18 08:13 | XMS_ITS | Encounter Summary ---
:1945 Author Organization [facility] [place] [address] Care Team Providers Name Role Phone Lovely Vicente MD Primary Care Provider Encounter Details Date Type Department Care Team Description 07/28/2019 Office Visit Cardiology at [facility] Danette Maxwell Chronic systolic heart failu re; [facility] A, STACIE ASHD (arteriosclerotic heart disease); Drive [facility] S/P CABG x 3; [place], [place] MARIA VICTORIA (obstructive sleep apnea) on CPAP; [phone] CARDIOLOGY Mixed hyperlipidemia [phone] [place], [place] [address] Social History Tobacco Use Types [...] in this encounter Progress Notes Danette Maxwell, COAGULATION OPERATOR - 07/28/2019 9:40 AM EST Images from [...] regurgitation present. 07/07/2019 - 07/21/2019 Zio Patch Table Inspector The patient had a minimum heart rate [...] K+ 4.5 today 6. Post-op atrial fibrillation [id number] 7 (CHF, HTN, DM, vascular disease, thromboembolism) Amiodarone discontinued Continue coumadin INR managed by PCP 7. PAD 08/06/2017: Right 1st, 2nd, 3rd toe amputation 08/11/2017: Left??femoral arterial access, RLE??angiogram, Balloon angioplasty of R PT with Eleazar 2.5 x 80 10/25/2017: right popliteal-pedal bypass at [facility] 8. Hypothyrodism S/p thyroidectomy for goiter Continue [...] advised: Refer to EP (Dr. Mcelroy in [place]) 5. Heart Failure Clinic follow up scheduled for: 3 months with proBNP and BMP Danette Maxwell APRN 07/28/2019 documented in this encounter Plan of Treatment Upcoming Encounters Date Type Specialty Care Team Description 02/19/2022 Laboratory Appointment Lab 02/19/2022 Office Visit Cardiology Liz Poole PA [facility] er Cardiology Dept [place], [place] [address] (Wo rk) 03/26/2022 Office Visit Cardiology Vitaliy Nobles MD [facility] CARDIOLOGY [place], [place] [address] (Wo rk) documented as of this encounter Results (ABNORMAL) Basic Metabolic Panel (non-fasting) (07/28/2019 8:36 AM EST) athologist Signature Glucose Lvl 153 65 - 199 [facility] mg/dL [facility] [...] estions. Chloride 100 98 - 107 mmol/L [facility] CO2 29 22 - 31 mmol/L [facility] Anion Gap 12 5 - 15 mmol/L [facility] Calcium 9.3 8.5 - 10.5 mg/dL [facility] Estimated GFR 70 >=60 mL/min/1.73 m?? [facility] Comment: The eGFR was calculated using the CKD-EP I equation. As with all creatinine based estimates of kidney function, eGFR values calculated with the CKD-EPI equation are not accurate in patients wi th acute kidney failure, extremes of body mass or the acutely ill. http://[employer]/[facility]nk[facility] eGFR 81 >=60 mL/min/1.73 m?? [facility] Comment: The eGFR was calculated using the CKD-EP I equation. As with all creatinine based estimates of kidney function, eGFR values calculated with the CKD-EPI equation are not accurate in patients wi th acute kidney failure, extremes of body mass or the acutely ill. http://[employer]/[facility] Specimen Anatomical Collection Method Collection Time Receive d Time (Source) Location / / Volume Laterality Blood specimen 07/28/2019 8:36 AM 020 8:46 (specimen) EST AM EST Resulting Agency Comment Spec In Lab Danette Maxwell STACIE CHEMISTRY ORDERABLES Performing Organization Address City/State/[place] [address] (ABNORMAL) pro-Brain Natriuretic Peptide (07/28/2019 8:36 AM EST) P athologist Signature ProBNP 647 (H) <=125 pg/mL [facility] Specimen Anatomical Collection Method Collection Time Receive d Time (Source) Location / / Volume Laterality Blood specimen 07/28/2019 8:36 AM 020 8:46 (specimen) EST AM EST Resulting Agency Comment Spec In Lab Danette Maxwell STACIE CHEMISTRY ORDERABLES Performing Organization Address City/State/[place] [address] documented in this encounter Visit Diagnoses Diagnosis Chronic systolic heart failure ASHD (arteriosclerotic heart disease) Coronary atherosclerosis of unspecified type of vessel, elem or graft S/P CABG x 3 Postsurgical aortocoronary bypass status MARIA VICTORIA (obstructive sleep apnea) on CPAP Obstructive sleep apnea (adult) (pediatr ic) Mixed hyperlipidemia Chronic systolic heart failure documented in this encounter Care Teams Asbestos Brake Lining Finisher Relationship Specialty Start Date End Date Lovely Vicente MD PCP - General 04/16/[address] [place] [address] documented as of this encounter
--- OUTSIDE RECORDS SUMMARY | 2022-02-18 08:13 | XMS_ITS | Encounter Summary ---
:1945 Author Organization [facility] [place] [address] Care Team Providers Name Role Phone Lovely Vicente MD Primary Care Provider Encounter Details Date Type Department Care Team Description 03/20/2021 Ancillary Procedure Radiology Library [place] [address] [place] [address] [phone] Social History Tobacco Use Types Packs/Day Years [...] 02/19/2022 Office Visit Cardiology Liz Poole PA [facility] er Cardiology Dept [place], [place] [address] (Wo rk) 03/26/2022 Office Visit Cardiology Vitaliy Nobles MD [facility] CARDIOLOGY [place], [place] [address] (Wo rk) documented [...] Organization Address City/State/ZIP Code Phon e Number [place], [place] documented in this encounter Visit Diagnoses Not on filedocumented in this encounter Care Teams Cork Insulation Setter Relationship Specialty Start Date End Date Lovely Vicente MD PCP - General 04/16/[address] [place] [address] documented as of this encounter
--- OUTSIDE RECORDS SUMMARY | 2022-02-18 08:13 | XMS_ITS | Encounter Summary ---
:1945 Author Organization [facility] [place] [address] Care Team Providers Name Role Phone Lovely Vicente MD Primary Care Provider Encounter Details Date Type Department Care Team Description 12/07/2021 Ancillary Procedure [facility] Lovely murillo MD [facility] [address] [phone] (Wo rk) [phone] Social History Tobacco Use Types Packs/Day Years [...] Liz Poole PA [facility] Medical [facility] er Cardiology Dept [place], [place] [address] (Wo rk) 03/26/2022 Office Visit Cardiology Vitaliy Nobles MD [facility] ER CARDIOLOGY [place], [place] [address] (Wo rk) documented as of [...] Organization Address City/State/ZIP Code Phon e Number [place], [place] documented in this encounter Visit Diagnoses Not on filedocumented in this encounter Care Teams Barrel Roller Operator Relationship Specialty Start Date End Date Lovely Vicente MD PCP - General 04/16/[address] [place] [address] documented as of this encounter
--- OUTSIDE RECORDS SUMMARY | 2022-02-18 08:13 | XMS_ITS | Encounter Summary ---
:1945 Author Organization [facility] [place] [address] Care Team Providers Name Role Phone Lovely Vicente MD Primary Care Provider Encounter Details Date Type Department Care Team Description 02/19/2020 Telephone Dermatology at [facility] Ariana Wilder LPN [address] [place] [address] Social History Tobacco Use Types Packs/Day [...] 02/19/2022 Office Visit Cardiology Liz Poole PA [facility] er Cardiology Dept [place], [place] [address] (Wo rk) 03/26/2022 Office Visit Cardiology Vitaliy Nobles MD [facility] ER CARDIOLOGY [place], [place] [address] (Wo rk) documented as of this encounter Visit Diagnoses Not on filedocumented in this encounter Care Teams Strainer Cleaner Relationship Specialty Start Date End Date Lovely Vicente MD PCP - General 04/16/[address] [facility] [address] [place] [address] documented as of this encounter
--- OUTSIDE RECORDS SUMMARY | 2022-02-18 08:13 | XMS_ITS | Encounter Summary ---
:1945 Author Organization [facility] [address] Care Team Providers Name Role Phone Lovely Vicente MD Primary Care Provider Encounter Details Date Type Department Care Team Description 08/26/2018 Transcribe Orders Laboratory Lovely Vicente, Deferred diagnosis [facility] on axis I [address] [address] [place], [place] [phone] [address] Social History Tobacco Use Types Packs/Day Years [...] PA [facility] er Cardiology Dept [place], [place] [address] (Wo rk) 03/26/2022 Office Visit Cardiology Vitaliy Nobles MD [facility] ER CARDIOLOGY [place], [place] [address] (Wo rk) documented as of this encounter Visit Diagnoses Diagnosis Deferred diagnosis on axis I Other unknown and unspecified cause of m orbidity or mortality Chronic systolic heart failure documented in this encounter Care Teams Content Management Specialist Relationship Specialty Start Date End Date Lovely Vicente MD PCP - General 04/16/[address] [place] [address] documented as of this encounter
--- OUTSIDE RECORDS SUMMARY | 2022-02-18 08:13 | XMS_ITS | Encounter Summary ---
:1945 Author Organization [facility] [place] [address] Care Team Providers Name Role Phone Lovely Vicente MD Primary Care Provider Encounter Details Date Type Department Care Team Description 08/15/2018 Laboratory Lab 3L Barbara Wiseman systoli c heart failure; Appointment [facility] ASCVD (ar teriosclerotic cardiovascular disease) [place] [id number] Social History Tobacco Use Types Packs/Day Years [...] Liz Poole PA [facility] er Cardiology Dept [place], [place] [address] (Wo rk) 03/26/2022 Office Visit Cardiology Vitaliy Nobles MD [facility] ER CARDIOLOGY [place], [place] [address] (Wo rk) documented as of [...] Signature Glucose Lvl 116 65 - 199 [facility] mg/dL [facility] Comment: Diabetes: >=200 mg/dL plus symp toms BUN 21 (H) 10 - 20 mg/dL [facility] Creatinine 1.08 0.80 - 1.50 mg/dL [facility] Sodium 144 135 - 145 mmol/L [facility] Potassium 4.6 3.5 - 5.0 mmol/L [facility] Comment: Please note: ??Patients with WBC >100,00 0 may have falsely elevated Potassium levels. ??For accurate Potassium quantif ication in these patients send serum separator tube (gold top) for subsequent determinations. ??Contact the Clinical Chemistry Laboratory if there are any qu estions. Chloride 102 98 - 107 mmol/L [facility] CO2 27 22 - 31 mmol/L [facility] Anion Gap 15 5 - 15 mmol/L [facility] Calcium 9.0 8.5 - 10.5 mg/dL [facility] Estimated GFR 68 >=60 mL/min/1.73 m?? [facility] Comment: The eGFR was calculated using the CKD-EP I equation. As with all creatinine based estimates of kidney function, eGFR values calculated with the CKD-EPI equation are not accurate in patients wi th acute kidney failure, extremes of body mass or the acutely ill. http://Ocarina Technologies/DHnkf eGFR 79 >=60 mL/min/1.73 m?? [facility] Comment: The eGFR was calculated using the CKD-EP I equation. As with all creatinine based estimates of kidney function, eGFR values calculated with the CKD-EPI equation are not accurate in patients wi th acute kidney failure, extremes of body mass or the acutely ill. http://[employer]/DHMCnkf Specimen Anatomical Collection Method Collection Time Receive d Time (Source) Location / / Volume Laterality Blood specimen 08/15/2018 8:04 AM 019 8:20 (specimen) EST AM EST Resulting Agency Comment Spec In Lab Danette A Mineral STACIE CHEMISTRY ORDERABLES Performing Organization Address City/State/[place] [address] Lipid Panel (08/15/2018 8:04 AM EST) P athologist Signature Chol, Total 75 mg/dL [facility] Comment: Lower Risk: <200 mg/dL Average Risk: 200-239 mg/dL Higher Risk: >va=656 mg/dL Triglycerides 185 mg/dL [facility] Comment: Average Risk/Lower Risk: <150 mg/dL Borderline High Risk: 150-199 mg/dL High Risk: 200-499 mg/dL Very High Risk: >fg=349 mg/dL HDL 32 mg/dL [facility] Comment: Males: ?? Higher Risk: <40 mg/dL Females: ?? HIgher Risk: <50 mg/dL LDL Cholesterol 6 mg/dL [facility] Comment: Lowest Risk: <100 mg/dL Lower Risk: 100-129 mg/dL Borderline High Risk: 130-159 mg/dL High Risk: 160-189 mg/dL Very High Risk: >wg=352 mg/dL Chol/HDL Ratio 2.3 ratio [facility] Lipid Interpretation See Note [facility] Comment: Lipid management should be guided by a p atient? s ASCVD risk, goals and preferences. ACC/AHA Guidelines recommend high intens ity statin if clinical ASCVD or LDL greater than or equal to 190 mg/dL. http://tinyurl.com/SPI-HXL-Cmiahksmt Adults aged 40-75 with LDL 70-189 mg/dL should have their 10 year ASCVD risk estimated with the ACC/AHA ASCVD risk es timator http://tools.acc.org/FEBOT-Eqju-Wvqanfky r/ Statin should be discussed if risk [...] Organization Address City/State/[place] [address] (ABNORMAL) pro-Brain Natriuretic Peptide (08/15/2018 8:04 AM EST) P athologist Signature ProBNP 1,797 (H) <=125 [facility] pg/mL [facility] Specimen Anatomical Collection Method Collection Time Receive d Time (Source) Location / / Volume Laterality Blood specimen 08/15/2018 8:04 AM 019 8:20 (specimen) EST AM EST Resulting Agency Comment Spec In Lab Danette Maxwell APRN CHEMISTRY ORDERABLES Performing Organization Address City/State/[place] [address] documented in this encounter Visit Diagnoses Diagnosis Chronic systolic heart failure ASCVD (arteriosclerotic cardiovascular d isease) Unspecified cardiovascular disease Chronic systolic heart failure documented in this encounter Care Teams Labor Law Professor Relationship Specialty Start Date End Date Lovely Vicente MD PCP - General 04/16/[address] [place] [address] documented as of this encounter
--- OUTSIDE RECORDS SUMMARY | 2022-02-18 08:13 | XMS_ITS | Encounter Summary ---
:1945 Author Organization [facility] [place] [address] Care Team Providers Name Role Phone Lovely Vicente MD Primary Care Provider Encounter Details Date Type Department Care Team Description 12/07/2021 Telephone Cardiology Eddi Briceño Jr., [facility] [place] [address] [facility] [phone] CARDIOLOGY DEPT [place], [place] [address] (Wo rk) Social History Tobacco [...] [facility] Referring Provider: Marisela Dean, MEAL COOKER [address] [place] [address] Don Veda Kushal 76 y.o. w / [...] bpm, LAFB, poor R wave progression, septal MS, and lateral STD, overall no significantchange from [...] PA [facility] Cardiology Dept [place], [place] [address] (Wo rk) 03/26/2022 Office Visit Cardiology Vitaliy Nobles MD [facility] ER CARDIOLOGY [place], [place] [address] (Wo rk) documented as of this encounter Visit Diagnoses Not on filedocumented in this encounter Care Teams Cargo Tank Mechanic Relationship Specialty Start Date End Date Lovely Vicente MD PCP - General 04/16/15 [address] [place] [address] documented as of this encounter
--- OUTSIDE RECORDS SUMMARY | 2022-02-18 08:13 | XMS_ITS | Encounter Summary ---
:1945 Author Organization [facility] [place] [address] Care Team Providers Name Role Phone Lovely Vicente MD Primary Care Provider Encounter Details Date Type Department Care Team Description 01/16/2019 Laboratory Appointment Lab 3L [facility] [place] [address] Social History Tobacco Use Types Packs/Day Years [...] Cardiology Liz Poole PA [facility] er Cardiology Dept [place], [place] [address] (Wo rk) 03/26/2022 Office Visit Cardiology Vitaliy Nobles MD [facility] ER CARDIOLOGY [place], [place] [address] (Wo rk) documented as of [...] athologist Signature ProBNP 780 (H) <=125 pg/mL [facility] Specimen Anatomical Collection Method Collection Time Receive d Time (Source) Location / / Volume Laterality Blood specimen 01/16/2019 7:49 AM 019 7:55 (specimen) EDT AM EDT Resulting Agency Comment Spec In Lab Danette Maxwell APRN CHEMISTRY ORDERABLES Performing Organization Address City/State/[place] [address] (ABNORMAL) Basic Metabolic Panel (non-fasting) (01/16/2019 7:49 AM EDT) athologist Signature Glucose Lvl 105 65 - 199 [facility] mg/dL [facility] Comment: Diabetes: >=200 mg/dL plus [...] LABORATORY Estimated GFR 68 >=60 mL/min/1.73 m?? [facility] Comment: The eGFR was calculated using the CKD-EP I equation. As with all creatinine based estimates of kidney function, eGFR values calculated with the CKD-EPI equation are not accurate in patients wi th acute kidney failure, extremes of body mass or the acutely ill. http://Airpowered/[facility] [place], OKLAHOMAnkf eGFR 79 >=60 mL/min/1.73 m?? [facility] Comment: The eGFR was calculated using the CKD-EP I equation. As with all creatinine based estimates of kidney function, eGFR values calculated with the CKD-EPI equation are not accurate in patients wi th acute kidney failure, extremes of body mass or the acutely ill. http://Airpowered/[facility] [place], OKLAHOMAnkf Specimen Anatomical Collection Method Collection Time Receive d Time (Source) Location / / Volume Laterality Blood specimen 01/16/2019 7:49 AM 019 7:55 (specimen) EDT AM EDT Resulting Agency Comment Spec In Lab Danette Maxwell APRN CHEMISTRY ORDERABLES Performing Organization Address City/State/ZIP Code [place] [address] documented in this encounter Visit Diagnoses Diagnosis Chronic systolic heart failure Chronic systolic heart failure documented in this encounter Care Teams Management Lecturer Relationship Specialty Start Date End Date Lovely Vicente MD PCP - General 04/16/[address] [place] [address] documented as of this encounter
--- OUTSIDE RECORDS SUMMARY | 2022-02-18 08:13 | XMS_ITS | Encounter Summary ---
:1945 [place] [address] Care Team Providers Name Role Phone Lovely Vicente MD Primary Care Provider Encounter Details Date Type Department Care Team Description 03/20/2021 Telephone Neurology at [facility] Hugo Gaston MD [facility] [place] [address] [place] [address] [phone] (Wo rk) Social History Tobacco Use Types [...] - 03/20/2021 6:03 PM EDT Call from [facility]. 76 M with h/o DM. CABG, [...] Gaston MD Department of Neurology Pager # [phone] documented in this encounter Plan of Treatment Upcoming Encounters Date Type Specialty Care Team Description 02/19/2022 Laboratory Appointment Lab 02/19/2022 Office Visit Cardiology Liz Poole PA [facility] er Cardiology [place], [place] [address] (Wo rk) 03/26/2022 Office Visit Cardiology Vitaliy Nobles MD [facility] ER CARDIOLOGY [place], [place] [address] (Wo rk) documented as of this encounter Visit Diagnoses Not on filedocumented in this encounter Care Teams Linux Vmware Administrator Relationship Specialty Start Date End Date Lovely Vicente MD PCP - General 04/16/[address] [place] [address] documented as of this encounter
--- OUTSIDE RECORDS SUMMARY | 2022-02-18 08:13 | XMS_ITS | Encounter Summary ---
:1945 [place] [address] Care Team Providers Name Role Phone Lovely Vicente MD Primary Care Provider Encounter Details Date Type Department Care Team Description 08/15/2018 Laboratory Appointment Lab 3[place] [address] Social History Tobacco Use Types Packs/Day [...] PA [facility] er Cardiology Dept [place], [place] [address] (Wo rk) 03/26/2022 Office Visit Cardiology Vitaliy Nobles MD [facility] CARDIOLOGY [place], [place] [address] (Wo rk) documented as of this encounter Procedures Procedure Name Priority Date/Time Associated Diagnosis Comme nts PROTHROMBIN TIME Routine 08/15/2018 8:04 AM Resul ts for this EST procedure are i n the results section. documented in this encounter Results (ABNORMAL) Prothrombin Time (08/15/2018 8:04 AM EST) P athologist Signature PT 24.0 (H) 9.4 - 12.5 [facility] LABORATORY INR 2.[address] [facility] Comment: An INR <2.0 indicates [...] Organization Address City/State/[place] [address] documented in this encounter Visit Diagnoses Not on filedocumented in this encounter Care Teams Building Admin Relationship Specialty Start Date End Date Lovely Vicente MD PCP - General 04/16/[address] [place] [address] documented as of this encounter
--- OUTSIDE RECORDS SUMMARY | 2022-02-18 08:13 | XMS_ITS | Encounter Summary ---
:1945 Author Organization [facility] [place] [address] Care Team Providers Name Role Phone Lovely Vicente MD Primary Care Provider Reason for Visit Reason Comments Establish Care Atrial Fibrillation Congestive Heart Failure Cardiomyopathy Encounter Details Date Type Department Care Team Description 09/06/2019 [facility] Ischem[facility] Osvaldo STRANGE [address] [place], [place] CARDIOLOGY DEPT. [address] [place] [address] [phone] Social History Tobacco Use Types Packs/Day Years [...] today For any questions, call my office: [phone] To access your health care information, go to the web at: [email or web address] (you will need to register) For educational materials: [email or web address] Karel TRAMMELL.[facility], Clinical Cardiac Electrophysiology, [facility], [facility] A Healthy Heart: After Your Visit [...] least 2 servings of fish a week. Orient, mackerel, mcfadden, sardines, and chunk light tuna [...] irregular heartbeat. After you call 911, the viner operator may tell you to chew 1 [...] more? Visit our health information library at [email or web address]. You can also view health information on [employer], your personal patient account. Log in or sign up today. Enter F075 in the search box to learn more about A Healthy Heart: After Your Visit. ?? [id number] [employer] documented in this encounter Progress Notes Karel Mcelroy MD - 09/06/2019 2:20 PM EST Images from the original note were not included. Section of Cardiology/Cardiac Electrophysiology [facility] Clinical Cardiac Electrophysiology Consult Patient ID Don Fatima 1945 [id number] Don Fatima is referred to the EP clinic by Danette Maxwell APRN PhD Chief Complaint Dyspnea on exertion Ischemic cardiomyopathy History This is a 74 y.o. male following up/being seen in clinic for evaluation for ongoing anticoagulation. He has a Saoix2Kyzp score of ~ 6-7. 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, can walk [...] on phone: None Gets together: None Attends faith service: None Active member of club or [...] reviewed the ECG: sinus rhythm, 72 bpm, ID 140 ms, QRS 100 ms, QT 400 [...] EP clinic KAREL MCELROY MD Cardiac Electrophysiology [facility] T: [phone] F: [phone] 35 minutes of this 40 minute encounter were spent in counselling, as described above Cc: MD Danette Cr APRN PhD Janett Espino DPM documented in this encounter Plan of Treatment Upcoming Encounters Date Type Specialty Care Team Description 02/19/2022 Laboratory Appointment Lab 02/19/2022 Office Visit Cardiology Liz Poole PA [facility] er Cardiology Dept [place], [place] [address] (Wo rk) 03/26/2022 Office Visit Cardiology Vitaliy Nobles MD [facility] ER CARDIOLOGY [place], [place] [address] (Wo rk) documented as of [...] 446 ms MUSE SYSTEM (Bezet) Calculated P [place] 37 degrees MUSE SYSTEM Calculated R [place] -23 degrees MUSE SYSTEM Calculated T [place] 116 degrees MUSE SYSTEM INTERPRETATION Normal sinus rhythm MUSE SYSTEM Inferior infarct (cited on or before 25-JAN-2013) ST & T wave abnormality, consider anterolateral ischemia Abnormal ECG When compared with ECG of 19-AUG-2017 10:23, No significant change was found Confirmed by MD Castellon Daniel ([id number]) on 09/08/2019 10:22:4 7 AM Specimen Anatomical [...] failure documented in this encounter Care Teams Headhunter Relationship Specialty Start Date End Date Lovely Vicente MD PCP - General 04/16/[address] [place] [address] documented as of this encounter
--- OUTSIDE RECORDS SUMMARY | 2022-02-18 08:13 | XMS_ITS | Encounter Summary ---
:1945 Author Organization [facility] [place] [address] Care Team Providers Name Role Phone Lovely Vicente MD Primary Care Provider Encounter Details Date Type Department Care Team Description 03/20/2021 Ancillary Procedure Radiology Library [place] [address] [place] [address] [phone] Social History Tobacco Use Types Packs/Day Years [...] [facility] er Cardiology Dept [place], [place] [address] (Wo rk) 03/26/2022 Office Visit Cardiology Vitaliy Nobles MD [facility] CARDIOLOGY [place], [place] [address] (Wo rk) documented as of [...] Organization Address City/State/ZIP Code Phon e Number [place], [place] documented in this encounter Visit Diagnoses Not on filedocumented in this encounter Care Teams Poolroom Table Attendant Relationship Specialty Start Date End Date Lovely Vicente MD PCP - General 04/16/[address] [place] [address] documented as of this encounter
--- OUTSIDE RECORDS SUMMARY | 2022-02-18 08:13 | XMS_ITS | Encounter Summary ---
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 Post-op atrial fibrillation [id number] (CHF, HTN, DM, vascular disease, thromboembolism) Amiodarone discontinued Continue coumadin INR managed by PCP. 2.1 today 7. PAD 08/06/2017: Right 1st, 2nd, 3rd toe amputation 08/11/2017: Left??femoral arterial access, RLE??angiogram, Balloon angioplasty of R PT with Eleazar 2.5 x 80 10/25/2017: right popliteal-pedal bypass at [facility] 8. Hypothyrodism S/p thyroidectomy for goiter [...] PA [facility] Cardiology Dept [place], [place] [address] (Wo rk) 03/26/2022 Office Visit Cardiology Vitaliy Nobles MD [facility] CARDIOLOGY [place], [place] [address] (Wo rk) documented as of this encounter Results Lipid Panel (08/15/2018 8:04 AM EST) athologist Signature Chol, Total 75 mg/dL [facility] Comment: Lower Risk: <200 mg/dL Average Risk: 200-239 mg/dL Higher Risk: >gk=027 mg/dL Triglycerides 185 mg/dL [facility] Comment: Average Risk/Lower Risk: <150 mg/dL Borderline High Risk: 150-199 mg/dL High Risk: 200-499 mg/dL Very High Risk: >ut=770 mg/dL HDL 32 mg/dL [facility] Comment: Males: ?? Higher Risk: <40 mg/dL Females: ?? HIgher Risk: <50 mg/dL LDL Cholesterol 6 mg/dL [facility] Comment: Lowest Risk: <100 mg/dL Lower Risk: 100-129 mg/dL Borderline High Risk: 130-159 mg/dL High Risk: 160-189 mg/dL Very High Risk: >oi=390 mg/dL Chol/HDL Ratio 2.3 ratio [facility] Lipid Interpretation See Note [facility] Comment: Lipid management should be guided by a p atient? s ASCVD risk, goals and preferences. ACC/AHA Guidelines recommend high intens ity statin if clinical ASCVD or LDL greater than or equal to 190 mg/dL. http://Stratosur[employer] technology.com/FCA-EZD-Hlaimplbk Adults aged 40-75 with LDL 70-189 mg/dL should have their 10 year ASCVD risk estimated with the ACC/AHA ASCVD risk es timator http://tools.acc.org/NVSTL-Fyzq-Idjgcbis r/ Statin should be discussed if risk [...] Organization Address City/State/[place] [address] (ABNORMAL) Basic Metabolic Panel (non-fasting) (08/15/2018 8:04 AM EST) athologist Signature Glucose Lvl 116 65 - 199 [facility] mg/dL [facility] Comment: Diabetes: >=200 mg/dL plus symp toms BUN 21 (H) 10 - 20 mg/dL [facility] Creatinine 1.08 0.80 - 1.50 mg/dL [facility] Sodium 144 135 - 145 mmol/L [facility] Potassium 4.6 3.5 - 5.0 mmol/L [facility] [...] mmol/L [facility] Anion Gap 15 5 - 15 mmol/L [facility] Calcium 9.0 8.5 - 10.5 mg/dL [facility] Estimated GFR 68 >=60 mL/min/1.73 m?? [facility] Comment: The eGFR was calculated using the CKD-EP I equation. As with all creatinine based estimates of kidney function, eGFR values calculated with the CKD-EPI equation are not accurate in patients wi th acute kidney failure, extremes of body mass or the acutely ill. http://TapMe/[facility] OK[facility] CITYnkf eGFR 79 >=60 mL/min/1.73 m?? [facility] Comment: The eGFR was calculated using the CKD-EP I equation. As with all creatinine based estimates of kidney function, eGFR values calculated with the CKD-EPI equation are not accurate in patients wi th acute kidney failure, extremes of body mass or the acutely ill. http://TapMe/DHMCnkf Specimen Anatomical Collection Method Collection Time Receive d Time (Source) Location / / Volume Laterality Blood specimen 08/15/2018 8:04 AM 019 8:20 (specimen) EST AM EST Resulting Agency Comment Spec In Lab Danette Maxwell APRN CHEMISTRY ORDERABLES Performing Organization Address City/[facility]/ZIP Code Phon e Number [address] (ABNORMAL) pro-Brain Natriuretic Peptide (08/15/2018 8:04 AM EST) P athologist Signature ProBNP 1,797 (H) <=125 [facility] pg[facility]mL [facility] Specimen Anatomical Collection Method Collection Time Receive d Time (Source) Location / / Volume Laterality Blood specimen 08/15/2018 8:04 AM 019 8:20 (specimen) EST AM EST Resulting Agency Comment Spec In Lab Danette Maxwell APRN CHEMISTRY ORDERABLES Performing Organization Address City/State/ZIP [place] [address] documented in this encounter Visit Diagnoses Diagnosis Chronic systolic heart failure Cardiomyopathy, ischemic Other specified forms of chronic ischemi c heart disease ASCVD (arteriosclerotic cardiovascular d isease) Unspecified cardiovascular disease Essential hypertension Unspecified essential hypertension MARIA VICTORIA on CPAP Obstructive sleep apnea (adult) (pediatr ic) Chronic systolic heart failure documented in this encounter Care Teams Financial Reporting Accountant Relationship Specialty Start Date End Date Lovely Vicente MD PCP - General 04/16/[address] [place] [address] documented as of this encounter
--- OUTSIDE RECORDS SUMMARY | 2022-02-18 08:14 | XMS_ITS | Encounter Summary ---
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 [...] by Dr. Espino On IV antibiotics at [facility] Today: Mr. Fatima is accompanied by [...] continue to see Dr. Bains well at [facility] and follow his wound on his right lower extremity. And she will continue to direct antibiotic treatment. Ihave asked that the echocardiogram results be faxed to Dr. Zurita at [facility]. 1. ASCVD Continue ASA, BB and [...] and bone removal by Dr. Aguero at [facility]. Currently receiving IV antibiotics at [facility] ? Plan: 1. A review of [...] PA [facility] Cardiology Dept [place], [place] [address] (Wo rk) 03/26/2022 Office Visit Cardiology Vitaliy Nobles MD [facility] CARDIOLOGY [place], [place] [address] (Wo rk) documented as of this encounter Results (ABNORMAL) Basic Metabolic Panel (non-fasting) (10/07/2017 8:48 AM EDT) athologist Signature Glucose Lvl 99 65 - 199 [facility] mg/dL [facility] [...] MEDICAL CENTER LABORATORY Estimated GFR >60 >=60 [facility] Comment: The reported eGFR should be multiplied b y 1.2 for patients. The MDRD is not an appropriate measure o f renal function for patients with body mass extremes or in patients with acute kidney failure. http://Oversight Systems/DHnkdep http://Oversight Systems/DHMCnkf Specimen Anatomical Collection Method Collection Time Receive d Time (Source) Location / / Volume Laterality Blood specimen 10/07/2017 8:48 AM 018 8:50 (specimen) EDT AM EDT Resulting Agency Comment Spec In Lab Danette Maxwell APRN CHEMISTRY ORDERABLES Performing Organization Address City/[facility]/[place] [address] (ABNORMAL) pro-Brain Natriuretic Peptide (10/07/2017 8:48 AM EDT) P athologist Signature ProBNP 1,170 (H) <=125 [facility] pg/mL [facility] LABORATORY Specimen Anatomical Collection Method Collection Time Receive d Time (Source) Location / / Volume Laterality Blood specimen 10/07/2017 8:48 AM 018 8:50 (specimen) EDT AM EDT Resulting Agency Comment Spec In Lab Danette Maxwell APRN CHEMISTRY ORDERABLES Performing Organization Address City/State/[place] [address] documented in this encounter Visit Diagnoses Diagnosis Chronic systolic heart failure S/P CABG x 3 Postsurgical aortocoronary bypass status On amiodarone therapy Atrial fibrillation, unspecified type ASCVD (arteriosclerotic cardiovascular d isease) Unspecified cardiovascular disease Chronic systolic heart failure documented in this encounter Care Teams Lockstitch Collar Setter Relationship Specialty Start Date End Date Lovely Vicente MD PCP - General 04/16/[address] [place] [address] documented as of this encounter
--- OUTSIDE RECORDS SUMMARY | 2022-02-18 08:14 | XMS_ITS | Encounter Summary ---
:1945 Author Organization [place] [address] Care Team Providers Name Role Phone Lovely Vicente MD Primary Care Provider Reason for Visit Reason Comments Follow-up I'm having trouble with the VAC Encounter Details Date Type Department Care Team Description 08/26/2017 Office Visit Vascular Surgery at [facility], STEPHANIE Mercado Atheroembolism of foot, right; [facility] [address] Delayed surgical wound healing, initial encounter; [facility] VASCULAR SURG YEHUDA Acute on chronic systolic congestive hea rt failure ; [place], [place] [phone] Social History Tobacco Use Types Packs/Day Years [...] and into the care of the [facility]. However, since discharge from [facility] he has had some [...] SETUP performed by Manny Mcknight MD at [facility] MAIN OR ??? PRO AMPUTATION FOOT, TRANSMETATARSAL Right 08/09/2017 AMPUTATION, TRANSMETATARSAL (WRVU 12.71) performed by Yonathan Smith MD at [facility] MAIN OR ??? PRO CABG, ARTERIAL, SINGLE N/A 07/07/2017 @CABG, USING ARTERIAL GRAFT;SINGLE ARTERIAL GRAFT (WRVU 33.75) performed by Yuan Retana MD at [facility] MAIN OR ??? PRO CABG, ARTERY-VEIN, TWO N/A 07/07/2017 @CABG, TWO VENOUS GRAFTS & ARTERIAL GRAFT (WRVU 7.93) performed by Yuan Retana MD at [facility] MAIN OR ??? PRO COLONOSCOPY, REMV LESN, SNARE 01/16/2014 COLONOSCOPY, POLYPECTOMY, REMOVAL LESION BY SNARE performed by Nohemi Jaimes MD at [facility] ENDOSCOPY ??? PRO DRESSING CHANGE UNDER ANESTHESIA Right 08/11/2017 (MSURG) DRESSING CHANGE (FOR OTHER THAN IVAN) UNDER ANES. (WRVU 0.86) performed by Lamar Smith MD at [facility] MAIN OR ??? PRO ENDOSCOPY W/VIDEO-ASST VEIN HARVEST, CABG Right 07/07/2017 ENDOSCOPIC HARVEST VEIN(S) FOR CABG (WRVU 0.31) performed by Yuan Retana MD at [facility] MAIN OR ??? PRO THYROIDECTOMY 03/28/2013 THYROIDECTOMY, TOTAL OR COMPLETE performed by Manny Mcknight MD at [facility] MAIN OR Social Hx: Social [...] Liz Poole PA [facility] [place] [address] (Wo rk) 03/26/2022 Office Visit Cardiology Vitaliy Nobles MD [facility] CARDIOLOGY [place], [place] [address] (Wo rk) documented as of [...] Component Value Ref Test Analysis Performed At [facility] gist Range Method Time Signature VB Text Department: Vascular Surgery Lab VASCUBASE Report Patient: [id number] (GREGORY HOANG) CPT: 74869 ICD10: T81.89XA;I75.021 Referring Physician: ARIK BLOOM ?? [...] Signature Glucose Lvl 98 65 - 199 [facility] mg/dL [facility] Comment: Diabetes: >=200 mg/dL plus symp toms BUN 20 10 - 20 mg/dL [facility]OR[facility]ORY Creatinine 1.17 0.80 - 1.50 mg/dL [facility] Sodium 140 135 - 145 mmol/L [facility] Potassium 4.8 3.5 - 5.0 mmol/L [facility] [...] LABORATORY Calcium 9.1 8.5 - 10.5 mg/dL [facility]OR[facility]ORY Estimated GFR >60 >=60 [facility] Comment: The reported eGFR should be multiplied b y 1.2 for patients. The MDRD is not an appropriate measure o f renal function for patients with body mass extremes or in patients with acute kidney failure. http://Varaa.com.XtremIO/DHnkdep http://Profit Software/DHMCnkf Specimen Anatomical Collection Method Collection Time Receive d Time (Source) Location / / Volume Laterality Blood specimen 08/26/2017 2:00 PM 018 2:15 (specimen) EST PM EST Resulting Agency Comment Spec In Lab Danette Maxwell STACIE CHEMISTRY ORDERABLES Performing Organization Address City/State/ZIP Code Phon e Number [address] (ABNORMAL) pro-Brain Natriuretic Peptide (08/26/2017 2:00 PM EST) P athologist Signature ProBNP 2,373 (H) <=125 [facility] pg/mL [facility] Specimen Anatomical Collection Method Collection Time Receive d Time (Source) Location / / Volume Laterality Blood specimen 08/26/2017 2:00 PM 018 2:15 (specimen) EST PM EST Resulting Agency Comment Spec In Lab Danette Maxwell STACIE CHEMISTRY ORDERABLES Performing Organization Address City/[facility]/[place] [address] documented in this encounter Visit Diagnoses Diagnosis Atheroembolism of foot, right Delayed surgical wound healing, initial encounter Acute on chronic systolic congestive hea rt failure Acute on chronic systolic heart failure Ischemic cardiomyopathy Other specified forms of chronic ischemi c heart disease Chronic systolic heart failure documented in this encounter Care Teams Log Inspector Relationship Specialty Start Date End Date Lovely Vicente MD PCP - General 04/16/[address] [place] [address] documented as of this encounter
--- OUTSIDE RECORDS SUMMARY | 2022-02-18 08:14 | XMS_ITS | Encounter Summary ---
:1945 Author Organization [facility] [place] [address] Care Team Providers Name Role Phone Lovely Vicente MD Primary Care Provider Encounter Details Date Type Department Care Team Description 11/29/2017 Office Visit Cardiology at [facility] Annette Maxwell Chronic systolic congestive heart failure; [facility] A, MED ADMIN ASCVD (arteriosclerotic cardiovascular d isease); [facility] Cardiomyopathy, ischemic; [place], [place] PAD (peripheral artery disease) [phone] CARDIOLOGY [phone] [place], [place] [address] Social History Tobacco Use [...] in this encounter Progress Notes Annette Maxwell, MED ADMIN - 11/29/2017 9:20 AM EDT ID and [...] painful and swollen right foot right d/t 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 [...] using left greater saphenous vein (done at [facility]), debridement of right foot with wound vac [...] x 80 10/25/2017: right popliteal-pedal bypass at [facility] ? Plan: 1. A review of [...] Office Visit Cardiology Liz Poole PA [facility] Cardiology Dept [place], [place] [address] (Wo rk) 03/26/2022 Office Visit Cardiology Vitaliy Nobles MD [facility] CARDIOLOGY [place], [place] [address] (Wo rk) documented as of this encounter Results Arterial Duplex Leg, Unil (11/29/2017 10:32 AM EDT) Component Value Ref Test Analysis Performed At [facility] Range Method Time Signature VB Text Department: Vascular Surgery Lab VASCUBASE Report Patient: [id number] (GREGORY HOANG) CPT: 67987 ICD10: I72.4;I73.9 Referring Physician: ANNETTE MAXWELL ?? [...] Glucose Lvl 217 (H) 65 - 199 [facility] mg/dL [facility] LABORATORY Comment: Diabetes: >=200 mg/dL plus symp toms BUN 26 (H) 10 - 20 mg/dL [facility] Creatinine 0.96 0.80 - 1.50 mg/dL [facility] Sodium 137 135 - 145 mmol/L [facility] LABOR[facility]ORY Potassium 4.1 3.5 - 5.0 mmol/L [facility] mmol/L [facility] CO2 23 22 - 31 mmol/L [facility]OR[facility]ORY Anion Gap 17 (H) 5 - 15 mmol/L [facility]ORY Calcium 8.5 8.5 - 10.5 mg/dL [facility] LABORATORY Estimated GFR >60 >=60 [facility] Comment: The reported eGFR should be multiplied b y 1.2 for patients. The MDRD is not an appropriate measure o f renal function for patients with body mass extremes or in patients with acute kidney failure. http://Shakti [employer].y prime/DHnkdep http://CRITICAL TECHNOLOGIES/DHMCnkf Specimen Anatomical Collection Method Collection Time Receive d Time (Source) Location / / Volume Laterality Blood specimen 11/29/2017 8:22 AM 018 8:29 (specimen) EDT AM EDT Resulting Agency Comment Spec In Lab Annette Maxwell APRN CHEMISTRY ORDERABLES Performing Organization Address City/State/[place] [address] (ABNORMAL) pro-Brain Natriuretic Peptide (11/29/2017 8:22 AM EDT) athologist Signature ProBNP 1,769 (H) <=125 [facility] pg[facility]mL [facility]OR[facility]ORY Specimen Anatomical Collection Method Collection Time Receive d Time (Source) Location / / Volume Laterality Blood specimen 11/29/2017 8:22 AM 018 8:29 (specimen) EDT AM EDT Resulting Agency Comment Spec In Lab Annette Maxwell MED ADMIN CHEMISTRY ORDERABLES Performing Organization Address City/State/[place] [address] documented in this encounter Visit Diagnoses Diagnosis Chronic systolic congestive heart failur e Chronic systolic heart failure ASCVD (arteriosclerotic cardiovascular d isease) Unspecified cardiovascular disease Cardiomyopathy, ischemic Other specified forms of chronic ischemi c heart disease PAD (peripheral artery disease) Peripheral vascular disease, unspecified Chronic systolic heart failure documented in this encounter Care Teams Director Of Development Relationship Specialty Start Date End Date Lovely Vicente MD PCP - General 04/16/[address] [place] [address] documented as of this encounter
--- OUTSIDE RECORDS SUMMARY | 2022-02-18 08:14 | XMS_ITS | Encounter Summary ---
:1945 Author Organization [place] [address] Care Team Providers Name Role Phone Lovely Vicente MD Primary Care Provider Reason for Referral Diagnostic Test (Routine) - Closed Specialty Diagnoses / Procedures Referred By Contact Refer red To Contact Cardiology Diagnoses Ischemic cardiomyopathy Acute on chronic systolic congestive heart failure Danette Maxwell APRN [facility] Non-Inv Card Lab Procedures Echocardiogram Transthoracic(Leb) [facility] [place] [address] [place] [address] Referral ID Status Reason Start Date Expiration Date Visits V isits Requested Authorized [id number] Closed Specialty 08/30/2017 08/30/2018 1 1 Service Requested Encounter Details Date Type Department Care Team Description 08/26/2017 Office Visit Cardiology at [facility] Danette Maxwell Ischemic cardiomyopathy; [facility] STACIE Gomes Acute on chronic systolic congestive hea rt failure ; Drive [facility] ASCVD (arteriosclerotic card iovascular disease); [place], [place] PAF (paroxysmal atrial fibrillation); [phone] CARDIOLOGY PAD (peripheral artery disease) [phone] [place], [place] [address] Social History Tobacco Use Types Packs/Day Years [...] painful and swollen right foot right d/t 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 [...] Poole PA [facility] er Dr Cardiology Dept [place], [place] [address] (Wo rk) 03/26/2022 Office Visit Cardiology Vitaliy Nobles MD [facility] CARDIOLOGY [place], [place] [address] (Wo rk) documented as of this encounter Results ECHOCARDIOGRAM COMPLETE W CONTRAST (10/07/2017 10:23 AM EDT) athologist Signature EF 45 [facility] Specimen (Source) Anatomical Location Collection Method / Collectio n Time Received Time / Laterality Volume 10/07/2017 Narrative [facility] - 10/07/2017 11:13 AM ED T Procedure: ?Transthoracic Echocardiogram Patient: ?NATALYA Mccollum ? (Age): 1945(72y) Med Rec#: ? [id number] ?Sex: ?M ? Site Loc: ? [facility] ?Ht / Wt: ??173(cm)/82(kg) Pt. Loc: ?Echo Lab ?BSA: ?1.96 Study Date: ?? 10/07/2017 ?Pt. Type: Outpatient Tape: ? Referring: Danette Maxwell Reading: Iker Cuevas ([id number]) Jewelry Bench Molder: Yonathan Bocanegra Diagnosis: *ICD-10-PCS Ischemic cardiomyopathy (I2 [...] E-wave Vmax ?1.2 ?m/sec ? MV deceleration ehgb166 ?msec ? MV A-wave Vmax ?1 ?m/sec [...] ? Mid-Inferior ?Hypokinetic ? Mid-Inferoseptal ?Hypokinetic ? Roberts-Septal ? Akinetic ? Roberts-Anterior ? Hypokinetic ? Roberts-Lateral ?Hypokinetic ? Roberts-Inferior ? Hypokinetic ? Roberts-Tip ?Akinetic ? This report has been electronically sign ed by: _ Iker Cuevas M.D. ? 10/07/2017 11:12:34 Images reviewed and interpretation verif ied [facility] Cardiac Ultrasound Laboratory Procedure Note Iker Cuevas MD - 10/07/2017Formatti ng of this note might be different from the original. Procedure: Transthoracic Echocardiogram Patient: NATALYA MCBRIDE(Age): [birth year]72y) Med Rec#: [id number] Sex: M Site Loc: [facility] Ht / Wt: 173(cm)/82(kg) Pt. Loc: Echo Lab BSA: 1.96 Study Date: 10/07/2017 Pt. Type: Outpati ent Tape: Referring: Danette Maxwell Reading: Iker Cuevas ([id number]) Jewelry Bench Molder: Yonathan Bocanegra Diagnosis: *ICD-10-PCS Ischemic cardiomyopathy (I2 [...] MV E-wave Vmax 1.2 m/sec MV deceleration tykt454 msec MV A-wave Vmax 1 m/sec MV [...] Akinetic Mid-Posterolateral Hypokinetic Mid-Inferior Hypokinetic Mid-Inferoseptal Hypokinetic Roberts-Septal Akinetic Roberts-Anterior Hypokinetic Roberts-Lateral Hypokinetic Roberts-Inferior Hypokinetic Roberts-Tip Akinetic This report has been electronically sign ed by: _ Iker Cuevas M.D. 10/07/2017 11:12 :34 Images reviewed and interpretation elvie hwang [facility] Cardiac Ultrasound Laboratory Danette Maxwell APRN ECHO ORDERABLES Performing Organization Address City/State/ZIP Code Phon e Number [facility] Basic Metabolic Panel (non-fasting) (08/26/2017 2:00 PM EST) P athologist Signature Glucose Lvl 98 65 - 199 [facility] mg/dL [facility]OR[facility]ORY Comment: Diabetes: >=200 mg/dL plus symp toms BUN 20 10 - 20 mg/dL [facility]OR[facility]ORY Creatinine 1.17 0.80 - 1.50 mg/dL [facility] [...] estions. Chloride 98 98 - 107 mmol/L [facility] CO2 28 22 - 31 mmol/L [facility] Anion Gap 14 5 - 15 mmol/L [facility] LABORATORY Calcium 9.1 8.5 - 10.5 mg/dL [facility] LABORATORY Estimated GFR >60 >=60 [facility] Comment: The reported eGFR should be multiplied b y 1.2 for patients. The MDRD is not an appropriate measure o f renal function for patients with body mass extremes or in patients with acute kidney failure. http://CloudWalk/DHnkdep http://CloudWalk/DHMCnkf Specimen Anatomical Collection Method Collection Time Receive d Time (Source) Location / / Volume Laterality Blood specimen 08/26/2017 2:00 PM 018 2:15 (specimen) EST PM EST Resulting Agency Comment Spec In Lab Danette Eliseo Hans QUINONES CHEMISTRY ORDERABLES Performing Organization Address City/State/[place] [address] (ABNORMAL) pro-Brain Natriuretic Peptide (08/26/2017 2:00 PM EST) P athologist Signature ProBNP 2,373 (H) <=125 [facility] pg/mL [facility] Specimen Anatomical Collection Method Collection Time Receive d Time (Source) Location / / Volume Laterality Blood specimen 08/26/2017 2:00 PM 018 2:15 (specimen) EST PM EST Resulting Agency Comment Spec In Lab Danette Gomes Hans QUINONES CHEMISTRY ORDERABLES Performing Organization Address City/State/[place] [address] documented in this encounter [...] failure Acute on chronic systolic heart failure Chronic systolic heart failure documented in this encounter Care Teams Wood Room Hand Relationship Specialty Start Date End Date Lovely Vicente MD PCP - General 04/16/[address] [place] [address] [address] [place] [address] documented as of this encounter
--- OUTSIDE RECORDS SUMMARY | 2022-02-18 08:14 | XMS_ITS | Encounter Summary ---
:1945 Author Organization [facility] [place] [address] Care Team Providers Name Role Phone Lovely Vicente MD Primary Care Provider Encounter Details Date Type Department Care Team Description 11/29/2017 Hospital Encounter Vascular Lab at [facility] Walter PAD (peripheral [facility], RVT artery [facility]) [place] [phone] Social History Tobacco Use Types Packs/Day Years [...] [facility] Cardiology Dept [place], [place] [address] (Wo rk) 03/26/2022 Office Visit Cardiology Vitaliy Nobles MD [facility] CARDIOLOGY [place], [place] [address] (Wo rk) documented [...] Component Value Ref Test Analysis Performed At [facility] Range Method Time Signature VB Text Department: Vascular Surgery Lab VASCUBASE Report Patient: [id number] (DON HOANG) CPT: 24865 ICD10: I72.4;I73.9 Referring Physician: DANETTE MAXWELL ?? [...] failure documented in this encounter Care Teams Videographer Relationship Specialty Start Date End Date Lovely Vicente MD PCP - General 04/16/[address] [place] [address] documented as of this encounter
--- OUTSIDE RECORDS SUMMARY | 2022-02-18 08:14 | XMS_ITS | Encounter Summary ---
:1945 Author Organization [facility] [place] [address] Care Team Providers Name Role Phone Lovely Vicente MD Primary Care Provider Reason for Referral Diagnostic Test (Routine) - Specialty Diagnoses / Procedures Referred By Contact Refer red To Contact Cardiology Diagnoses Chronic systolic heart failure Danette Maxwell APRN [facility] Non-Inv Card Lab Procedures Echocardiogram Transthoracic(Leb) [facility] [place] [phone] [place] [address] Referral ID Status Reason Start Date Expiration Visits Visits Date Requested Authorized [id number] Specialty 08/15/2018 08/15/2018 1 1 Service Requested Reason for Visit Diagnostic Test (Routine) - Specialty Diagnoses / Procedures Referred By Contact Nawaf owen To Contact Cardiology Diagnoses Chronic systolic heart failure Danette Maxwell APRN [facility] Non-Inv Card Lab Procedures Echocardiogram Transthoracic(Leb) [facility] [address] [place] [address] Referral ID Status Reason Start Date Expiration Visits Visits Date Requested Authorized [id number] Specialty 08/15/2018 08/15/2018 1 1 Service Requested Encounter Details Date Type Department Care Team Description 08/15/2018 Hospital Encounter Non-Invasive Danette Maxwell Chron ic systolic Cardiology Lab Barbara Gomes APRN heart failure [facility] [place] [address] [place] [phone] (Work) [phone] Social History Tobacco Use Types Packs/Day Years [...] [facility] Cardiology Dept [place], [place] [address] (Wo rk) 03/26/2022 Office Visit Cardiology Vitaliy Nobles MD [facility] CARDIOLOGY [place], [place] [address] (Wo rk) documented as of [...] Mccollum ? (Age): 1945(73y) Med Rec#: ? [id number] ?Sex: ?M ? Site Loc: ? [facility] [place] ?Ht / Wt: ??172(cm)/81(kg) Pt. Loc: ?Echo Lab ?BSA: ?1.94 Study Date: ?? 08/15/2018 ?Pt. Type: Outpatient Tape: ? Referring: MARY ELLEN Reading: Scott Ortega ([id number]) Carry Out Clerk: Laura Sargent Diagnosis: *Chronic systolic (congestive) heart [...] E-wave Vmax ?1.2 ?m/sec ? MV deceleration [id number] ? msec ? MV A-wave Vmax ?0.7 [...] ? Mid-Inferior ?Hypokinetic ? Mid-Inferoseptal ?Hypokinetic ? [place]-Septal ? Akinetic ? [place]-Anterior ? Hypokinetic ? [place]-Lateral ?Akinetic ? [place]-Inferior ? Hypokinetic ? [place]-Tip ?Akinetic ? This report has been electronically sign ed by: _ Scott Ortgea M.D. ? 08/15/2018 08:17:26 Images reviewed and interpretation elvie wanda [facility] Cardiac Ultrasound Laboratory Procedure Note Scott Ortega MD - 08/15/2018Format ting of this note might be different from the original. Procedure: Transthoracic Echocardiogram Patient: NATALYA MCBRIDE(Age): [birth year]73y) Med Rec#: [id number] Sex: M Site Loc: [facility] [place] Ht / Wt: 172(cm)/81(kg) Pt. Loc: Echo Lab BSA: 1.94 Study Date: 08/15/2018 Pt. Type: Outpati ent Tape: Referring: MARY ELLEN Reading: Scott Ortega ([id number]) Carry Out Clerk: Laura Sargent Diagnosis: *Chronic systolic (congestive) heart [...] MV E-wave Vmax 1.2 m/sec MV deceleration [id number] msec MV A-wave Vmax 0.7 m/sec MV [...] Akinetic Mid-Posterolateral Akinetic Mid-Inferior Hypokinetic Mid-Inferoseptal Hypokinetic [place]-Septal Akinetic [place]-Anterior Hypokinetic [place]-Lateral Akinetic [place]-Inferior Hypokinetic [place]-Tip Akinetic This report has been electronically sign ed by: _ Scott Ortega M.D. 08/15/2018 08:17: 26 Images reviewed and interpretation verif ied [facility] Cardiac Ultrasound Laboratory Danette Maxwell APRN [...] documented in this encounter Care Teams Applications Coordinator Relationship Specialty Start Date End Date Lovely Vicente MD PCP - General 04/16/[address] [place] [address] [address] [place] [address] documented as of this encounter
--- OUTSIDE RECORDS SUMMARY | 2022-02-18 08:14 | XMS_ITS | Encounter Summary ---
:1945 Author Organization [facility] [place] [address] Care Team Providers Name Role Phone Lovely Vicente MD Primary Care Provider Encounter Details Date Type Department Care Team Description 09/07/2017 Office Visit Endocrinology at [facility] Maria Ines [facility] [place] [address] [place] [address] ENDOCRINOLOGY DEPT [place], [place] [address] Social History Tobacco Use Types [...] Poole PA [facility] Cardiology Dept [place], [place] 0[address] (Wo rk) 03/26/2022 Office Visit Cardiology Vitaliy Nobles MD [facility] ER CARDIOLOGY [place], [place] 0375 (Wo rk) documented as of this encounter Visit Diagnoses Diagnosis Hx of papillary thyroid carcinoma Personal history of malignant neoplasm o f thyroid Chronic systolic heart failure documented in this encounter Care Teams Reel Winder Relationship Specialty Start Date End Date Lovely Vicente MD PCP - General 04/16/[address] [place] [address] documented as of this encounter
--- OUTSIDE RECORDS SUMMARY | 2022-02-18 08:14 | XMS_ITS | Encounter Summary ---
:1945 Author Organization [facility] [place] [address] Care Team Providers Name Role Phone Lovely Vicente MD Primary Care Provider Encounter Details Date Type Department Care Team Description 09/06/2017 Telephone [place]ascular [place] [facility] [place]infa Clark, [place] [address] Social History Tobacco Use Types Packs/Day [...] 02/19/2022 Office Visit Cardiology Liz Poole PA [facility] Cardiology Dept [place], [place] [address] (Wo rk) 03/26/2022 Office Visit Cardiology Vitaliy Nobles MD [facility] CARDIOLOGY [place], [place] 0[address] (Wo rk) documented as of this encounter Visit Diagnoses Not on filedocumented in this encounter Care Teams Chainer Relationship Specialty Start Date End Date Lovely Vicente MD PCP - General 04/16/[address] [place] [address] documented as of this encounter
--- OUTSIDE RECORDS SUMMARY | 2022-02-18 08:14 | XMS_ITS | Encounter Summary ---
:1945 Author Organization [facility] [place] [address] Care Team Providers Name Role Phone Lovely Vicente MD Primary Care Provider Reason for Referral Diagnostic Test (Routine) - Closed Specialty Diagnoses / Procedures Referred By Contact Refer red To Contact Cardiology Diagnoses Ischemic cardiomyopathy Acute on chronic systolic congestive heart failure Danette Maxwell APRN [facility] Non-Inv Card Lab Procedures Echocardiogram Transthoracic(Leb) [facility] [address] [place] [address] Referral ID Status Reason Start Date Expiration Date Visits V isits Requested Authorized [id number] Closed Specialty 08/30/2017 08/30/2018 1 1 Service Requested Reason for Visit Diagnostic Test (Routine) - Closed Specialty Diagnoses / Procedures Referred By Contact Refer red To Contact Cardiology Diagnoses Ischemic cardiomyopathy Acute on chronic systolic congestive heart failure Danette Maxwell APRN [facility] Non-Inv Card Lab Procedures Echocardiogram Transthoracic(Leb) [facility] [place] [address] [place] [address] Referral ID Status Reason Start Date Expiration Date Visits V isits Requested Authorized [id number] Closed Specialty 08/30/2017 08/30/2018 1 1 Service Requested Encounter Details Date Type Department Care Team Description 10/07/2017 Hospital Encounter Non-Invasive Ischemic cardiomyopathy; Cardiology Lab Barbara Craig on chronic systolic congest[place] [address] Social History Tobacco Use Types Packs/Day [...] mg by mouth 0 Capsule daily. ACCU-CHEK TEAR PLUS 2-3 times daily 100 each 1 [...] [facility] Cardiology Dept [place], [place] [address] (Wo rk) 03/26/2022 Office Visit Cardiology Vitaliy Nobles MD [facility] ER DR CARDIOLOGY [place] [address] (Wo rk) documented as of this encounter [...] Mccollum ? (Age): 1945(72y) Med Rec#: ? [id number] ?Sex: ?M ? [place] Loc: ? [facility] [place]Ht / Wt: ??173(cm)/82(kg) Pt. Loc: ?Echo Lab ?BSA: ?1.96 Study Date: ?? 10/07/2017 ?Pt. Type: Outpatient Tape: ? Referring: Danette Maxwell Reading: Iker Cuevas ([id number]) Installer Technician: Yonathan Bocanegra Diagnosis: *ICD-10-PCS Ischemic cardiomyopathy (I2 [...] E-wave Vmax ?1.2 ?m/sec ? MV deceleration [id number] ?msec ? MV A-wave Vmax ?1 ?m/sec [...] ? Mid-Inferior ?Hypokinetic ? Mid-Inferoseptal ?Hypokinetic ? [place]-Septal ? Akinetic ? [place]-Anterior ? Hypokinetic ? [place]-Lateral ?Hypokinetic ? [place]-Inferior ? Hypokinetic ? [place]-Tip ?Akinetic ? This report has been electronically sign ed by: _ Iker Cuevas M.D. ? 10/07/2017 11:12:34 Images reviewed and interpretation verif ied [facility] Cardiac Ultrasound Laboratory Procedure Note Iker Cuevas MD - 10/07/2017Formatti ng of this note might be different from the original. Procedure: Transthoracic Echocardiogram Patient: NATALYA MCBRIDE(Age): [birth year]72y) Med Rec#: [id number] Sex: M [place] Loc[place] [facility] Ht / Wt: 173(cm)/82(kg) Pt. Loc: Echo Lab BSA: 1.96 Study Date: 10/07/2017 Pt. Type: Outpati ent Tape: Referring: Danette Maxwell Reading: Iker Cuevas ([id number]) Installer Technician: Yonathan Bocanegra Diagnosis: *ICD-10-PCS Ischemic cardiomyopathy (I2 [...] MV E-wave Vmax 1.2 m/sec MV deceleration [id number] msec MV A-wave Vmax 1 m/sec MV [...] Akinetic Mid-Posterolateral Hypokinetic Mid-Inferior Hypokinetic Mid-Inferoseptal Hypokinetic [place]-Septal Akinetic [place]-Anterior Hypokinetic [place]-Lateral Hypokinetic [place]-Inferior Hypokinetic [place]-Tip Akinetic This report has been electronically sign ed by: _ Iker Cuevas M.D. 10/07/2017 11:12 :34 Images reviewed and interpretation elvie hwang [facility] Cardiac Ultrasound Laboratory Danette A Hans [...] Routine documented in this encounter Care Teams [place] Stayer Machine Operator Relationship Specialty Start Date End Date Lovely Vicente MD PCP - General 04/16/[address] [place] [address] documented as of this encounter
--- OUTSIDE RECORDS SUMMARY | 2022-02-18 08:14 | XMS_ITS | Encounter Summary ---
:1945 Author Organization [facility] [place] [address] Care Team Providers Name Role Phone Lovely Vicente MD Primary Care Provider Encounter Details Date Type Department Care Team Description 08/19/2017 Office Visit Vascular Surgery at [place], PAD (peripheral artery [facility] disease) [facility] [place] VASCULAR SURGERY [address] [place] [address] [phone] Social History Tobacco Use Types Packs/Day Years [...] Liz Poole PA [facility] Cardiology [place], [place] [address] (Wo rk) 03/26/2022 Office Visit Cardiology Vitaliy Nobles MD [facility] CARDIOLOGY [place], [place] [address] (Wo rk) documented as of this encounter Visit Diagnoses Diagnosis PAD (peripheral artery disease) Peripheral vascular disease, unspecified Chronic systolic heart failure documented in this encounter Care Teams Engraver Tire Mold Relationship Specialty Start Date End Date Lovely Vicente MD PCP - General 04/16/[address] [place] [address] documented as of this encounter
--- OUTSIDE RECORDS SUMMARY | 2022-02-18 08:14 | XMS_ITS | Encounter Summary ---
:1945 Author Organization [facility] [place] [address] Care Team Providers Name Role Phone Lovely Vicente MD Primary Care Provider Encounter Details Date Type Department Care Team Description 09/03/2017 Telephone Vascular Surgery at [facility] [place] Ninfa Clark, [place] [address] Social History Tobacco Use Types Packs/Day [...] help with the discomfort of the change. Photoresist Printer told the [facility] that I would ask [...] Poole PA [facility] er Cardiology Dept [place], [place] [address] (Wo rk) 03/26/2022 Office Visit Cardiology Vitaliy Nobles MD [facility] CARDIOLOGY [place], [place] [address] (Wo rk) documented as of this encounter Visit Diagnoses Not on filedocumented in this encounter Care Teams Loan Funder Relationship Specialty Start Date End Date Lovely Vicente MD PCP - General 04/16/15 [facility] [address] [place] [address] documented as of this encounter
--- OUTSIDE RECORDS SUMMARY | 2022-02-18 08:14 | XMS_ITS | Encounter Summary ---
:1945 Author Organization [facility] [place] [address] Care Team Providers Name Role Phone Lovely Vicente MD Primary Care Provider Reason for Visit Reason Comments Skin Check Encounter Details Date Type Department Care Team Description 07/06/2018 Office Visit Dermatology at [facility], Rigoberto Yarbrough (actinic keratosis); MD SHAY Quick III (seborrheic keratosis); [address] [facility] History of melanoma; [place] [address] Skin exam for malignant neoplasm [phone] [facility] [place], [place] [address] Social History Tobacco Use Types [...] leg - he had vascular surgery in [facility] while he lost several toes, they [...] Dr. Garcia.: AB HOFFMAN, MARCIE I, Hudson Castillo-Naseem, have performed the documentation for this encounter [...] Visit Cardiology Liz Poole PA [facility] Cardiology [place], [place] [address] (Wo rk) 03/26/2022 Office Visit Cardiology Vitaliy Nobles MD [facility] CARDIOLOGY [place], [place] 0[address] (Wo rk) documented as of this encounter Visit Diagnoses Diagnosis AK (actinic keratosis) Actinic keratosis [place] (seborrheic keratosis) Other seborrheic keratosis History of melanoma Personal history of malignant melanoma o f skin Skin exam for malignant neoplasm Screening for malignant neoplasm of the skin Chronic systolic heart failure documented in this encounter Care Teams Business Teacher Relationship Specialty Start Date End Date Lovely Vicente MD PCP - General 04/16/[address] [place] [address] documented as of this encounter
--- OUTSIDE RECORDS SUMMARY | 2022-02-18 08:14 | XMS_ITS | Encounter Summary ---
:1945 Author Organization [facility] [place] [address] Care Team Providers Name Role Phone Lovely Vicente MD Primary Care Provider Encounter Details Date Type Department Care Team Description 04/18/2018 Laboratory Appointment Lab 3L [facility] [place] [address] Social History Tobacco Use Types Packs/Day Years [...] [facility] er Cardiology Dept [place], [place] [address] (Wo rk) 03/26/2022 Office Visit Cardiology Vitaliy Nobles MD [facility] CARDIOLOGY [place], [place] [address] (Wo rk) documented as of [...] Signature Total Protein 7.6 6.1 - 8.0 [facility] [place] gm/dL [facility] Albumin 4.0 3.2 - 5.2 [facility] [place] gm/dL [facility] AST 36 0 - 39 [facility] unit/L [facility] ALT 27 0 - 55 [facility] [place] unit/L [facility] Alk Phos 96 40 - 120 [facility] [place] unit/L [facility] Total 0.7 0.2 - 1.3 [place] Bilirubin mg/dL [facility] Bili, Direct 0.1 0.0 - 0.3 [facility] [place] mg/dL [facility] Specimen Anatomical Collection Method Collection Time Receive d Time (Source) Location / / Volume Laterality Blood specimen Venous Draw / 04/18/2018 9:19 AM 2017 9:44 (specimen) Unknown EDT AM EDT Resulting Agency Comment Spec In Lab Danette Maxwell APRN CHEMISTRY ORDERABLES Performing Organization Address City/State/[place] [address] TSH (04/18/2018 9:19 AM EDT) athologist Signature TSH 1.77 0.27 - 4.20 [place] mlU/ML [facility] Specimen Anatomical Collection Method Collection Time Receive d Time (Source) Location / / Volume Laterality Blood specimen Venous Draw / 04/18/2018 9:19 AM 2017 9:44 (specimen) Unknown EDT AM EDT Resulting Agency Comment Spec In Lab Danette Maxwell APRN CHEMISTRY ORDERABLES Performing Organization Address City/State/[place] [address] (ABNORMAL) Basic Metabolic Panel (non-fasting) (04/18/2018 9:19 AM EDT) P athologist Signature Glucose Lvl 167 65 - 199 [facility] mg/dL [facility] Comment: Diabetes: >=200 mg/dL plus symp toms BUN 18 10 - 20 mg/dL [facility] Creatinine 1.19 0.80 - 1.50 mg/dL [facility] Sodium 147 (H) 135 - 145 mmol/L [facility] Potassium 4.8 3.5 - 5.0 mmol/L [facility] [...] [facility] CO2 23 22 - 31 mmol/L [facility] Anion Gap 23 (H) 5 - 15 mmol/L [facility] Calcium 9.3 8.5 - 10.5 mg/dL [facility] Estimated GFR 61 >=60 mL/min/1.73 m?? [facility] Comment: The eGFR was calculated using the CKD-EP I equation. As with all creatinine based estimates of kidney function, eGFR values calculated with the CKD-EPI equation are not accurate in patients wi th acute kidney failure, extremes of body mass or the acutely ill. http://[employer]DHMCnkf eGFR 70 >=60 mL/min/1.73 m?? [facility] Comment: The eGFR was calculated using the CKD-EP I equation. As with all creatinine based estimates of kidney function, eGFR values calculated with the CKD-EPI equation are not accurate in patients wi th acute kidney failure, extremes of body mass or the acutely ill. http://[employer] StoreDataCrowd/DHMCnkf Specimen Anatomical Collection Method Collection Time Receive d Time (Source) Location / / Volume Laterality Blood specimen 04/18/2018 9:19 AM 018 9:34 (specimen) EDT AM EDT Resulting Agency Comment Spec In Lab Danette Maxwell STACIE CHEMISTRY ORDERABLES Performing Organization Address City/[facility]/[place]IP [place] [address] (ABNORMAL) pro-Brain Natriuretic Peptide (04/18/2018 9:19 AM EDT) P athologist Signature ProBNP 2,199 (H) <=125 [facility] pg/mL [facility] Specimen Anatomical Collection Method Collection Time Receive d Time (Source) Location / / Volume Laterality Blood specimen 04/18/2018 9:19 AM 018 9:34 (specimen) EDT AM EDT Resulting Agency Comment Spec In Lab Danette A Hans STACIE CHEMISTRY ORDERABLES Performing Organization Address City/[facility]/[place] [address] documented in this encounter Visit Diagnoses Diagnosis Chronic systolic heart failure Chronic systolic heart failure documented in this encounter Care Teams Lime Mixer Relationship Specialty Start Date End Date Lovely Vicente MD PCP - General 04/16/[address] [place] [address] documented as of this encounter
--- OUTSIDE RECORDS SUMMARY | 2022-02-18 08:14 | XMS_ITS | Encounter Summary ---
:1945 [place] [address] Care Team Providers Name Role Phone Lovely Vicente MD Primary Care Provider Encounter Details Date Type Department Care Team Description 08/26/2017 Hospital Encounter Vascular Lab at [facility], Athero embolism of foot, right; [place], [place] Delayed surgi nusrat wound healing, [place] [address] Social History Tobacco Use Types Packs/Day Years [...] Poole PA [facility] Cardiology Dept [place], [place] [address] (Wo rk) 03/26/2022 Office Visit Cardiology Vitaliy Nobles MD [facility] CARDIOLOGY [place], [place] [address] (Wo rk) documented as of [...] Component Value Ref Test Analysis Performed [facility] Method Time Signature VB Text Department: Vascular Surgery Lab VASCUBASE Report Patient: [id number] (DON HOANG) CPT: 07362 ICD10: T81.89XA;I75.021 Referring Physician: ELVER BLOOM ?? [...] right Delayed surgical wound healing, initial encounter Chronic systolic heart failure documented in this encounter Care Teams Physician Assistant Primary Care Relationship Specialty Start Date End Date Lovely Vicente MD PCP - General 04/16/[address] [place] [address] documented as of this encounter
--- OUTSIDE RECORDS SUMMARY | 2022-02-18 08:14 | XMS_ITS | Encounter Summary ---
:1945 Author Organization [facility] [place] [address] Care Team Providers Name Role Phone Loevly Vicente MD Primary Care Provider Reason for Visit Reason Comments Follow-up Encounter Details Date Type Department Care Team Description 08/19/2017 Office Visit Cardiac Surgery at [place], Jock S/P C ABG (coronary [facility] [place], artery bypass graft) [facility] [place]AC[place] [address] SURGERY [phone] [place], [place] [address] Social History Tobacco Use Types [...] office. Best personal regards, Yuan [facility] MD [phone] documented in this encounter Plan of Treatment Upcoming Encounters Date Type Specialty Care Team Description 02/19/2022 Laboratory Appointment Lab 02/19/2022 Office Visit Cardiology Liz Poole PA [facility] Cardiology Dept [place], [place] [address] (Wo rk) 03/26/2022 Office Visit Cardiology Vitaliy Nobles MD [facility] CARDIOLOGY [place], [place] [address] (Wo rk) documented as of [...] 454 ms MUSE SYSTEM (Bezet) Calculated P [place] 20 degrees MUSE SYSTEM Calculated R [place] -29 degrees MUSE SYSTEM Calculated T [place] 121 degrees MUSE SYSTEM INTERPRETATION Normal sinus rhythm MUSE SYSTEM Inferior infarct (cited on or before 25-JAN-2013) Anterior 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) T wave abnormality, consider lateral ischemia Abnormal ECG When compared with ECG of 06-AUG-2017 12:37, No signif icant change was found Confirmed by MD Luci, Taurus Braun ([id number]) on 08/19/2017 1 0:37:38 PM Specimen Anatomical Collection Method Collection Time Receive d Time (Source) Location / / Volume Laterality 08/19/2017 10:23 08/19/2017 AM EST 10:37 PM EST Yuan [place] MD ECG ORDERABLES Performing Organization Address City/State/ZIP Code Phon e Number MUSE SYSTEM documented in this encounter Visit Diagnoses Diagnosis S/P CABG (coronary artery bypass graft) Postsurgical aortocoronary bypass status Chronic systolic heart failure documented in this encounter Care Teams Medical Charge Entry Specialist Relationship Specialty Start Date End Date Lovely Vicente MD PCP - General 04/16/[address] [place] [address] documented as of this encounter
--- OUTSIDE RECORDS SUMMARY | 2022-02-18 08:14 | XMS_ITS | Encounter Summary ---
:1945 Author Organization [facility] Address [address] [place] [address] Care Team Providers Name Role Phone Lovely Vicente MD Primary Care Provider Reason for Referral Diagnostic Test (Routine) - Specialty Diagnoses / Procedures Referred By Contact Refer red To Contact Cardiology Diagnoses Chronic systolic heart failure Danette Maxwell APRN [facility] Non-Inv Card Lab Procedures Echocardiogram Transthoracic(Leb) [facility] [place] [address] [place] [address] Referral ID Status Reason Start Date Expiration Visits Visits Date Requested Authorized [id number] Specialty 08/15/2018 08/15/2018 1 1 Service Requested Encounter Details Date Type Department Care Team Description 04/18/2018 Office Visit Cardiology at [facility] Danette Maxwell Chronic systolic heart failu re; [facility] STACIE Gomes On amiodarone therapy; [facility] Ischemic cardiomyopathy; [place], [place] DR ONOFRE (arteriosclerotic cardiovascular d isease) [id number] CARDIOLOGY [phone] [place], [place] [address] Social History Tobacco Use Types Packs/Day Years [...] in this encounter Progress Notes Danette Maxwell, PROGRAMMER DEVELOPER - 04/18/2018 10:40 AM EDT ID and [...] x 80 10/25/2017: right popliteal-pedal bypass at [facility] ? Plan: 1. A review of [...] Office Visit Cardiology Liz Poole PA [facility] Cardiology Dept [place], [place] [address] (Wo rk) 03/26/2022 Office Visit Cardiology Vitaliy Nobles MD [facility] CARDIOLOGY [place], [place] [address] ([facility]) documented as of this encounter Results ECHOCARDIOGRAM COMPLETE W CONTRAST (08/15/2018 7:55 AM EST) athologist Signature EF 35 HEARTLAB SYSTEM Specimen (Source) Anatomical Location Collection Method / Collectio n Time Received Time / Laterality Volume 08/15/2018 Narrative HEARTLAB SYSTEM - 08/15/2018 8:18 AM EST Procedure: ?Transthoracic Echocardiogram Patient: ?NATALYA Mccollum ? (Age): 1945(73y) Med Rec#: ? [id number] ?Sex: ?M ? Site Loc: ? [facility] ?Ht / Wt: ??172(cm)/81(kg) Pt. Loc: ?Echo Lab ?BSA: ?1.94 Study Date: ?? 08/15/2018 ?Pt. Type: Outpatient Tape: ? Referring: MARY ELLEN Reading: Scott Ortega ([id number]) Cloth Packer: Laura Sargent Diagnosis: *Chronic systolic (congestive) heart [...] E-wave Vmax ?1.2 ?m/sec ? MV deceleration aoib795.4 ? msec ? MV A-wave Vmax ?0.7 [...] ? Mid-Inferior ?Hypokinetic ? Mid-Inferoseptal ?Hypokinetic ? [place]-Septal ? Akinetic ? [place]-Anterior ? Hypokinetic ? [place]-Lateral ?Akinetic ? [place]-Inferior ? Hypokinetic ? [place]-Tip ?Akinetic ? This report has been electronically sign ed by: _ Scott Ortega M.D. ? 08/15/2018 08:17:26 Images reviewed and interpretation elvie hwang [facility] Cardiac Ultrasound Laboratory Procedure Note Soctt Ortega MD - 08/15/2018Format ting of this note might be different from the original. Procedure: Transthoracic Echocardiogram Patient: NATALYA MCBRIDE(Age): [birth year]73y) Med Rec#: [id number] Sex: M Site Loc: [facility] Ht / Wt: 172(cm)/81(kg) Pt. Loc: Echo Lab BSA: 1.94 Study Date: 08/15/2018 Pt. Type: Outpati ent Tape: Referring: MARY ELLEN Reading: Scott Ortega ([id number]) Cloth Packer: Laura Sargent Diagnosis: *Chronic systolic (congestive) heart [...] MV E-wave Vmax 1.2 m/sec MV deceleration mbwu605.4 msec MV A-wave Vmax 0.7 m/sec MV [...] Akinetic Mid-Posterolateral Akinetic Mid-Inferior Hypokinetic Mid-Inferoseptal Hypokinetic [place]-Septal Akinetic [place]-Anterior Hypokinetic [place]-Lateral Akinetic [place]-Inferior Hypokinetic [place]-Tip Akinetic This report has been electronically sign ed by: _ Scott Ortega M.D. 08/15/2018 08:17: 26 Images reviewed and interpretation verholger hwang [facility] Cardiac Ultrasound Laboratory Danette Maxwell APRN ECHO ORDERABLES Performing Organization Address City/State/ZIP Code Phon e Number HEARTLAB SYSTEM (ABNORMAL) Basic Metabolic Panel (non-fasting) (04/18/2018 9:19 AM EDT) P athologist Signature Glucose Lvl 167 65 - 199 [facility] mg/dL [facility] Comment: Diabetes: >=200 mg/dL plus symp toms BUN 18 10 - 20 mg/dL [facility] Creatinine 1.19 0.80 - 1.50 mg/dL [facility] Sodium 147 (H) 135 - 145 mmol/L [facility] Potassium 4.8 3.5 - 5.0 mmol/L [facility] Comment: Please note: ??Patients with WBC >100,00 0 may have falsely elevated Potassium levels. ??For accurate Potassium quantif ication in these patients send serum separator tube (gold top) for subsequent determinations. ??Contact the Clinical Chemistry Laboratory if there are any qu estions. Chloride 101 98 - 107 mmol/L [facility] CO2 23 22 - 31 mmol/L [facility] Anion Gap 23 (H) 5 - 15 mmol/L [facility] Calcium 9.3 8.5 - 10.5 mg/dL [facility] Estimated GFR 61 >=60 mL/min/1.73 m?? [facility] Comment: The eGFR was calculated using the CKD-EP I equation. As with all creatinine based estimates of kidney function, eGFR values calculated with the CKD-EPI equation are not accurate in patients wi th acute kidney failure, extremes of body mass or the acutely ill. http://Domain Media/DHnkf eGFR 70 >=60 mL/min/1.73 m?? [facility] Comment: The eGFR was calculated using the CKD-EP I equation. As with all creatinine based estimates of kidney function, eGFR values calculated with the CKD-EPI equation are not accurate in patients wi th acute kidney failure, extremes of body mass or the acutely ill. http://[employer]/DHMCnkf Specimen Anatomical Collection Method Collection Time Receive d Time (Source) Location / / Volume Laterality Blood specimen 04/18/2018 9:19 AM 018 9:34 (specimen) EDT AM EDT Resulting Agency Comment Spec In Lab Danette Maxwell STACIE CHEMISTRY ORDERABLES Performing Organization Address City/State/ZIP Code Phon e Number [address] (ABNORMAL) pro-Brain Natriuretic Peptide (04/18/2018 9:19 AM EDT) P athologist Signature ProBNP 2,199 (H) <=125 [facility] pg/mL [facility] Specimen Anatomical Collection Method Collection Time Receive d Time (Source) Location / / Volume Laterality Blood specimen 04/18/2018 9:19 AM 018 9:34 (specimen) EDT AM EDT Resulting Agency Comment Spec In Lab Danette Gomes Hydro STACIE CHEMISTRY ORDERABLES Performing Organization Address City/[facility]/ZIP [place] [address] documented in this encounter Visit Diagnoses Diagnosis Chronic systolic heart failure On amiodarone therapy Ischemic cardiomyopathy Other specified forms of chronic ischemi c heart disease ASCVD (arteriosclerotic cardiovascular d isease) Unspecified cardiovascular disease Chronic systolic heart failure Chronic systolic heart failure documented in this encounter Care Teams Soldering Machine Operator Helper Relationship Specialty Start Date End Date Lovely Vicente MD PCP - General 04/16/[address] [place] [address] documented as of this encounter
--- OUTSIDE RECORDS SUMMARY | 2022-02-18 08:14 | XMS_ITS | Encounter Summary ---
:1945 Author Organization [facility] [place] [place] [address] Care Team Providers Name Role Phone Lovely Vicente MD Primary Care Provider Reason for Visit Reason Comments Follow-up Skin Check Encounter Details Date Type Department Care Team Description 01/06/2018 Office Visit Dermatology at [facility]; Abdelrahman HOOPER MD History of melanoma; [address] [facility] [place] [address] [facility] [place], [place] [address] Social History Tobacco Use [...] encounter. Rigoberto Garcia MD Section of Dermatology [facility] documented in this encounter Plan of Treatment Upcoming Encounters Date Type Specialty Care Team Description 02/19/2022 Laboratory Appointment Lab 02/19/2022 Office Visit Cardiology Liz Poole PA [facility] er Cardiology Dept [place], [place] [address] (Wo rk) 03/26/2022 Office Visit Cardiology Vitaliy Nobles MD [facility] CARDIOLOGY [place], [place] [address] (Wo rk) documented as of this encounter Visit Diagnoses Diagnosis Multiple nevi Benign neoplasm of skin, site unspecifie d History of melanoma Personal history of malignant melanoma o f skin Seborrheic keratosis Other seborrheic keratosis Chronic systolic heart failure documented in this encounter Care Teams Alteration Specialist Relationship Specialty Start Date End Date Lovely Vicente MD PCP - General 04/16/[address] [place] [address] documented as of this encounter
--- OUTSIDE RECORDS SUMMARY | 2022-02-18 08:14 | XMS_ITS | Encounter Summary ---
:1945 Author Organization [facility] [address] Care Team Providers Name Role Phone Lovely Vicente MD Primary Care Provider Reason for Referral Consultation (Routine) - Specialty Diagnoses / Procedures Referred By Contact Refer red To Contact [facility] Diagnoses Atheroembolism of foot, right Delayed surgical wound healing, subsequent encounter Aurelia Rivera PA [address] [facility] [place] [address] Referral ID Status Reason Start Date Expiration Date Visits V isits Requested Authorized [id number] Consult, 09/08/2017 03/07/2018 1 1 Test & Treat Reason for Visit Reason Comments Wound Check My foot hurts Encounter Details Date Type Department Care Team Description 09/07/2017 Office Visit Vascular Surgery at MiguelAurelia PA Atheroembolism of foot, right; [facility] [address] [facility] Delayed surgical wound healing, subseque nt encounter [facility] [place] [address] [phone] Social History Tobacco Use Types Packs/Day Years [...] at home for VAC dressing changes from [facility]. Since his last visit his right forefoot wound VAC care has improved and [facility] nurses have maintained a better seal with [...] SETUP performed by Manny Mcknight MD at [facility] MAIN OR ??? PRO AMPUTATION FOOT, TRANSMETATARSAL Right 08/09/2017 AMPUTATION, TRANSMETATARSAL (WRVU 12.71) performed by Yonathan Smith MD at [facility] MAIN OR ??? PRO CABG, ARTERIAL, SINGLE N/A 07/07/2017 @CABG, USING ARTERIAL GRAFT;SINGLE ARTERIAL GRAFT (WRVU 33.75) performed by Yuan Retana MD at [facility] MAIN OR ??? PRO CABG, ARTERY-VEIN, TWO N/A 07/07/2017 @CABG, TWO VENOUS GRAFTS & ARTERIAL GRAFT (WRVU 7.93) performed by Yuan Retana MD at [facility] MAIN OR ??? PRO COLONOSCOPY, REMV LESN, SNARE 01/16/2014 COLONOSCOPY, POLYPECTOMY, REMOVAL LESION BY SNARE performed by Nohemi Jaimes MD at [facility] ENDOSCOPY ??? PRO DRESSING CHANGE UNDER ANESTHESIA Right 08/11/2017 (MSURG) DRESSING CHANGE (FOR OTHER THAN IVAN) UNDER ANES. (WRVU 0.86) performed by Lamar Smith MD at [facility] MAIN OR ??? PRO ENDOSCOPY W/VIDEO-ASST VEIN HARVEST, CABG Right 07/07/2017 ENDOSCOPIC HARVEST VEIN(S) FOR CABG (WRVU 0.31) performed by Yuan Retana MD at [facility] MAIN OR ??? PRO THYROIDECTOMY 03/28/2013 THYROIDECTOMY, TOTAL OR COMPLETE performed by Manny Mcknight MD at [facility] OR Social Hx: Social History Substance [...] Visit Cardiology Liz Poole PA [facility] Cardiology Dept [place], [place] [address] (Wo rk) 03/26/2022 Office Visit Cardiology Vitaliy Nobles MD [facility] CARDIOLOGY [place], [place] [address] (Wo rk) Scheduled Referrals Name Type Priority Associated Diagnoses Order S chedule Referral to Wound Outpatient Referral Routine Atheroembolism o f foot, Ordered: Clinic right 09/08/2017 Delayed surgical wound healing, subsequent encounter documented as of this encounter Visit Diagnoses Diagnosis Atheroembolism of foot, right Delayed surgical wound healing, subseque nt encounter Chronic systolic heart failure documented in this encounter Care Teams Professor Of Sport Management Relationship Specialty Start Date End Date Lovely Vicente MD PCP - General 04/16/[address] [place] [address] documented as of this encounter
--- OUTSIDE RECORDS SUMMARY | 2022-02-18 08:14 | XMS_ITS | Encounter Summary ---
:1945 Author Organization [facility] [place] [address] Care Team Providers Name Role Phone Lovely Vicente MD Primary Care Provider Encounter Details Date Type Department Care Team Description 11/29/2017 Laboratory Lab 3L Barbara Wiseman systoli c congestive heart failure; Appointment [facility] ASCVD (ar teriosclerotic cardiovascular disease); Hospital Cardiomyopathy, [place] [address] Social History Tobacco Use Types [...] [facility] er Cardiology Dept [place], [place] [address] (Wo rk) 03/26/2022 Office Visit Cardiology Vitaliy Nobles MD [facility] ER CARDIOLOGY [place], [place] [address] (Wo rk) documented as of [...] Signature PT 23.0 (H) 9.4 - 12.5 [facility] LABORATORY INR 2.1 [facility] Comment: An INR [...] Organization Address City/State/ZIP [place] [address] (ABNORMAL) Basic Metabolic Panel (non-fasting) (11/29/2017 8:22 AM EDT) athologist Signature Glucose Lvl 217 (H) 65 - 199 [facility] mg/dL [facility] Comment: Diabetes: >=200 mg/dL [...] Chloride 97 (L) 98 - 107 mmol/L [facility] CO2 23 22 - 31 mmol/L [facility] Anion Gap 17 (H) 5 - 15 mmol/L [facility] Calcium 8.5 8.5 - 10.5 mg/dL [facility] Estimated GFR >60 >=60 [facility] Comment: The reported eGFR should be multiplied b y 1.2 for patients. The MDRD is not an appropriate measure o f renal function for patients with body mass extremes or in patients with acute kidney failure. http://S[employer] Pl[employer].rumr/DHnkdep http://Adzilla/DHnkf Specimen Anatomical Collection Method Collection Time Receive d Time (Source) Location / / Volume Laterality Blood specimen 11/29/2017 8:22 AM 018 8:29 (specimen) EDT AM EDT Resulting Agency Comment Spec In Lab Danette Maxwell APRN CHEMISTRY ORDERABLES Performing Organization Address City/State/ZIP [place] [address] (ABNORMAL) pro-Brain Natriuretic Peptide (11/29/2017 8:22 AM EDT) P athologist Signature ProBNP 1,769 (H) <=125 [facility] pg/mL [facility] Specimen Anatomical Collection Method Collection Time Receive d Time (Source) Location / / Volume Laterality Blood specimen 11/29/2017 8:22 AM 018 8:29 (specimen) EDT AM EDT Resulting Agency Comment Spec In Lab Danettebrock Maxwell APRN CHEMISTRY ORDERABLES Performing Organization Address City/State/ZIP Code Phon e Number [address] Lavender Tube HOLD (11/29/2017 8:14 AM EDT) [facility] gist Method Time Signature Lavender Hold Sample in [facility] lab. [facility] Specimen Anatomical Collection Method Collection Time Receive d Time (Source) Location / / Volume Laterality Blood specimen No Charge / 11/29/2017 8:14 AM 018 8:29 (specimen) Unknown EDT AM EDT Lovely Vicente MD HEMATOLOGY ORDERABLES Performing Organization Address City/[facility]/[place] [address] documented in this encounter Visit Diagnoses Diagnosis Chronic systolic congestive heart failur e Chronic systolic heart failure ASCVD (arteriosclerotic cardiovascular d isease) Unspecified cardiovascular disease Cardiomyopathy, ischemic Other specified forms of chronic ischemi c heart disease Chronic systolic heart failure documented in this encounter Care Teams Warp Bleaching Vat Tender Relationship Specialty Start Date End Date Lovely Vicente MD PCP - General 04/16/[address] [place] [address] documented as of this encounter
--- OUTSIDE RECORDS SUMMARY | 2022-02-18 08:14 | XMS_ITS | Encounter Summary ---
:1945 Author Organization [facility] [place] [address] Care Team Providers Name Role Phone Lovely Vicente MD Primary Care Provider Encounter Details Date Type Department Care Team Description 09/07/2017 Laboratory Appointment Lab 3L [facility] Hx of [facility] [place] [address] Social History Tobacco Use Types Packs/Day Years [...] [facility] Cardiology Dept [place], [place] [address] (Wo rk) 03/26/2022 Office Visit Cardiology Vitaliy Nobles MD [facility] ER CARDIOLOGY [place], [place] [address] (Wo rk) documented as [...] EST) P athologist Signature Thyroglobulin 1.4 <=54.9 [facility] ng/mL [facility] Comment: Thyroglobulin levels may be [...] Thyroglob Ab <20.0 0.0 - 40.0 IU/mL [facility] Comment: Assay performed is the DPC Immulite Tg-A b immunometric assay. (Cutoff for TgAb negativity is <20 IU/ml ) Specimen Anatomical Collection Method Collection Time Receive d Time (Source) Location / / Volume Laterality Blood specimen 09/07/2017 2:41 PM 018 2:46 (specimen) EST PM EST Resulting Agency Comment Spec In Lab Luz Prescott MD CHEMISTRY ORDERABLES Performing Organization Address City/[facility]/ZIP Code Phon e Number [address] TSH (09/07/2017 2:41 PM EST) P athologist Signature TSH 3.93 0.27 - 4.20 [facility] mlU/ML [facility] LABOR[facility]ORY Specimen Anatomical Collection Method Collection Time Receive d Time (Source) Location / / Volume Laterality Blood specimen 09/07/2017 2:41 PM 018 2:46 (specimen) EST PM EST Resulting Agency Comment Spec In Lab Luz Prescott MD CHEMISTRY ORDERABLES Performing Organization Address City/[facility]/[place] [address] documented in this encounter Visit Diagnoses Diagnosis Hx of papillary thyroid carcinoma Personal history of malignant neoplasm o f thyroid Chronic systolic heart failure documented in this encounter Care Teams Supply Room Clerk Relationship Specialty Start Date End Date Lovely Vicente MD PCP - General 04/16/[address] [place] [address] documented as of this encounter
--- OUTSIDE RECORDS SUMMARY | 2022-02-18 08:14 | XMS_ITS | Encounter Summary ---
:1945 Author Organization [place] [place] [address] Care Team Providers Name Role Phone Lovely Vicente MD Primary Care Provider Encounter Details Date Type Department Care Team Description 08/30/2017 [facility] Critical [facility] [address] [place] SURGERY [address] [place] [address] [phone] Social History Tobacco Use Types Packs/Day Years [...] Smith MD - 08/30/2017 2:00 PM EST [facility] staff: Patient returns. He is [...] 02/19/2022 Office Visit Cardiology Liz Poole PA [facility] Medical [facility] [place] [facility] er Cardiology Dept [place], [place] [address] (Wo rk) 03/26/2022 Office Visit Cardiology Vitaliy Nobles MD [facility] ER CARDIOLOGY [place], [place] [address] (Wo rk) documented as of this encounter Visit Diagnoses Diagnosis Critical lower limb ischemia Unspecified circulatory system disorder Chronic systolic heart failure documented in this encounter Care Teams Pierce And Shave Press Operator Relationship Specialty Start Date End Date Lovely Vicente MD PCP - General 04/16/15 [facility] [address] [place] [address] (work) documented as of this encounter
--- OUTSIDE RECORDS SUMMARY | 2022-02-18 08:14 | XMS_ITS | Encounter Summary ---
:1945 Author Organization [facility] [place] [address] Care Team Providers Name Role Phone Lovely Vicente MD Primary Care Provider Encounter Details Date Type Department Care Team Description 08/19/2017 Hospital Encounter XRay at [facility] Martha Teague, S/P CABG x [address] [facility] [place] [address] [place] [address] RD [phone] [facility] [place], [place] [address] (Wo rk) Social History [...] Poole PA [facility] Cardiology Dept [place], [place] [address] (Wo rk) 03/26/2022 Office Visit Cardiology Vitaliy Nobles MD [facility] CARDIOLOGY [place], [place] [address] (Wo rk) documented as of [...] [place] at 08/19/2017 10:30 AM Martha Teague POULTRY HANGER IMG DX ORDERABLES documented in this encounter Visit Diagnoses Diagnosis S/P CABG x 3 Postsurgical aortocoronary bypass status Chronic systolic heart failure documented in this encounter Care Teams Electron Microscopist Relationship Specialty Start Date End Date Lovely Vicente MD PCP - General 04/16/[address] [place] [address] documented as of this encounter
--- OUTSIDE RECORDS SUMMARY | 2022-02-18 08:14 | XMS_ITS | Encounter Summary ---
:1945 Author Organization [facility] [place] [address] Care Team Providers Name Role Phone Lovely Vicente MD Primary Care Provider Encounter Details Date Type Department Care Team Description 10/05/2017 Unscheduled Cardiology at [facility] RONNIE Sin PATIENT NOT SEEN Encounter [facility] Tamiko Martinez MD [facility] [address] CARDIOLOGY DEPT [phone] [place] [address] Social History Tobacco Use Types Packs/Day Years [...] [facility] Cardiology Dept [place], [place] [address] (Wo rk) 03/26/2022 Office Visit Cardiology Vitaliy Nobles MD [facility]ICAL [facility] ER CARDIOLOGY [place], [place] [address] (Wo rk) documented as of this encounter Visit Diagnoses Diagnosis DH PATIENT NOT SEEN Chronic systolic heart failure documented in this encounter Care Teams Binder Sorter Relationship Specialty Start Date End Date Lovely Vicente MD PCP - General 04/16/[address] [place] [address] documented as of this encounter
--- OUTSIDE RECORDS SUMMARY | 2022-02-18 08:14 | XMS_ITS | Encounter Summary ---
:1945 [place] [address] Care Team Providers Name Role Phone Lovely Vicente MD Primary Care Provider Encounter Details Date Type Department Care Team Description 11/29/2017 Hospital Encounter Radiology Library at Estefany Maxwell Pain [facility] [place] [address] CARDIOLOGY [phone] [place], [place] [address] (Wo rk) Social History Tobacco [...] PA [facility] Cardiology Dept [place], [place] [address] (Wo rk) 03/26/2022 Office Visit Cardiology Vitaliy Nobles MD [facility] CARDIOLOGY [place], [place] [address] (Wo rk) documented as of [...] Organization Address City/State/ZIP Code Phon e Number [place], [place] documented in this encounter Visit Diagnoses Diagnosis Pain Generalized pain Chronic systolic heart failure documented in this encounter Care Teams Tip Bander Relationship Specialty Start Date End Date Lovely Vicente MD PCP - General 04/16/[address] [place] [address] documented as of this encounter
--- OUTSIDE RECORDS SUMMARY | 2022-02-18 08:14 | XMS_ITS | Encounter Summary ---
:1945 Author Organization [facility] [place] [address] Care Team Providers Name Role Phone Lovely Vicente MD Primary Care Provider Reason for Visit Reason Onset Date Comments Other 11/11/2017 Please call [facility] Encounter Details Date Type Department Care Team Description 11/11/2017 Telephone Cardiology at [facility] Danette Maxwell, Other (Please call [facility] CONVERTIBLE SOFA BEDSPRING TESTER [facility] ) [place] [address] CARDIOLOGY [place], [place] [address] (Wo rk) Social History Tobacco [...] Liz Poole PA [facility] Dr Cardiology Dept [place], [place] [address] (Wo rk) 03/26/2022 Office Visit Cardiology Vitaliy Nobles MD [facility] CARDIOLOGY [place], [place] [address] (Wo rk) documented as of this encounter Visit Diagnoses Not on filedocumented in this encounter Care Teams Managing Principal Relationship Specialty Start Date End Date Lovely Vicetne MD PCP - General 04/16/15 [facility] [address] [place] [address] documented as of this encounter
--- OUTSIDE RECORDS SUMMARY | 2022-02-18 08:14 | XMS_ITS | Encounter Summary ---
:1945 Author Organization [place] [address] Care Team Providers Name Role Phone Lovely Vicente MD Primary Care Provider Reason for Visit Reason Onset Date Comments Follow-up 07/13/2018 amiodarone discontin ued Encounter Details Date Type Department Care Team Description 07/13/2018 Telephone Cardiology at [facility] Martha Comer, Follow-up (amiodarone [facility] RN discontin ued) [place] [address] Social History Tobacco Use Types Packs/Day [...] RN - 07/13/2018 8:57 AM EST Per RN ORTHOPEDIC Hans call placed to the home number for the pt. confirmed that the pt is still taking the amiodarone. Pt is to stop the amiodarone. Pt taking it for post op a-fib, therapy was supposed to be for 30 days. Message given to his . She will give him the message and will have him call with any questions. Call placed to the [facility] pharmacy in [place] to discontinue it there as well. Med list updated. documented in this encounter Plan of Treatment Upcoming Encounters Date Type Specialty Care Team Description 02/19/2022 Laboratory Appointment Lab 02/19/2022 Office Visit Cardiology Liz Poole PA [facility] er Cardiology Dept [place], [place] [address] (Wo rk) 03/26/2022 Office Visit Cardiology Vitaliy Nobles MD [facility] ER CARDIOLOGY [place], [place] [address] (Wo rk) documented as of this encounter Visit Diagnoses Not on filedocumented in this encounter Care Teams Watch Manufacturing Supervisor Relationship Specialty Start Date End Date Lovely Vicetne MD PCP - General 04/16/[address] [place] [address] documented as of this encounter
--- OUTSIDE RECORDS SUMMARY | 2022-02-18 08:14 | XMS_ITS | Encounter Summary ---
:1945 Author Organization [facility] [place] [address] Care Team Providers Name Role Phone Lovely Vicente MD Primary Care Provider Encounter Details Date Type Department Care Team Description 09/16/2017 Hospital [place]counter [place] [address] Social History Tobacco Use Types Packs/Day [...] Visit Cardiology Liz Poole PA [facility] er Cardiology Dept [place], [place] [address] (Wo rk) 03/26/2022 Office Visit Cardiology Vitaliy Nobles MD [facility] ER CARDIOLOGY [place], [place] [address] (Wo rk) documented as of this encounter Procedures Procedure Name Priority Date/Time Associated Diagnosis Comme [facility] SURGICAL PATHOLOGY Routine 09/16/2017 7:28 AM Res ults for this REPORT EST procedure are i n the results section. documented in this encounter Results Surgical Pathology Report (09/16/2017 7:28 AM EST) Component Value Ref Test Analysis Performed At [facility] Range Method Time Signature Surgical [id number] ? Location: [facility] Pathology RYAN Report The signing pathologist [...] Henrique Flower Verified: ??09/24/2017 ?Pathologist Performed at: ??-[facility] Dept. of Pathology, [place], [place] CLINICAL INFORMATION Specimen Submitted: A - [...] City/State/ZIP Code Phon e Number [place], [place] [id number] [place] [address] documented in this encounter Visit Diagnoses Not on filedocumented in this encounter Care Teams Log Chain Feeder Relationship Specialty Start Date End Date Lovely Vicente MD PCP - General 04/16/[address] [place] [address] documented as of this encounter
--- OUTSIDE RECORDS SUMMARY | 2022-02-18 08:14 | XMS_ITS | Encounter Summary ---
:1945 Author Organization [facility] [place] [address] Care Team Providers Name Role Phone Lovely Vicente MD Primary Care Provider Encounter Details Date Type Department Care Team Description 10/05/2017 Telephone Cardiology at [facility] Tamiko Sin MD [facility] [place] [address] CARDIOLOGY DEPT [phone] [place], [place] [address] (Wo rk) Social History Tobacco [...] [facility] er Cardiology Dept [place], [place] [address] (Wo rk) 03/26/2022 Office Visit Cardiology Vitaliy Nobles MD [facility] ER CARDIOLOGY [place], [place] [address] (Wo rk) documented as of this encounter Visit Diagnoses Not on filedocumented in this encounter Care Teams Motorcycle Assembler Relationship Specialty Start Date End Date Lovely Vicente MD PCP - General 04/16/[address] [place] [address] documented as of this encounter
--- OUTSIDE RECORDS SUMMARY | 2022-02-18 08:14 | XMS_ITS | Encounter Summary ---
:1945 Author Organization [facility] [place] [address] Care Team Providers Name Role Phone Lovely Vicente MD Primary Care Provider Reason for Visit Reason Onset Date Comments VNA Calls 08/30/2017 Encounter Details Date Type Department Care Team Description 08/30/2017 Telephone [facility]ascular Surgery at [facility] Cora Reid RN [facility]NA Calls [facility] [place] [address] Social History Tobacco Use Types Packs/Day [...] 08/30/2017 11:16 AM EST Caller: Alfonso at [facility] [phone] Reason for call: Changing his wound vac [...] Alfonso who had been in contact with [facility]'s Wound Care Nurse who advised him to [...] Cardiology Liz Poole PA [facility] Cardiology [place], [place] [address] (Wo rk) 03/26/2022 Office Visit Cardiology Vitaliy Nobles MD [facility] ER CARDIOLOGY [place], [place] [address] (Wo rk) documented as of this encounter Visit Diagnoses Not on filedocumented in this encounter Care Teams Pole Cutter Relationship Specialty Start Date End Date Lovely Vicente MD PCP - General 04/16/[address] [place] [address] documented as of this encounter
--- OUTSIDE RECORDS SUMMARY | 2022-02-18 08:14 | XMS_ITS | Encounter Summary ---
:1945 Author Organization [facility] [address] Care Team Providers Name Role Phone Lovely Vicente MD Primary Care Provider Encounter Details Date Type Department Care Team Description 08/25/2017 Telephone Pain Management at [facility], [place] [address] Social History Tobacco Use Types Packs/Day [...] Management Center Preauthorization Request Patient: Don Fatima [id number] Fax received from [employer] denying prior authorization for Lidocaine Patches prescribed by Barbra Soares APRN. RX insurance plan: [employer] RX insurance telephone: [phone] Patient Diagnosis: right foot pain secondary to PVD and ischemia ? Previous medications attempted: Tylenol, Tramadol, Dilaudid Authorization/Reference number: [id number] _x_ denied, provider and patient informed _x_ appeal initiated by provider, patient informed Angeles Rodrigez, RN documented in this encounter Plan of Treatment Upcoming Encounters Date Type Specialty Care Team Description 02/19/2022 Laboratory Appointment Lab 02/19/2022 Office Visit Cardiology Liz Poole PA [facility] er Cardiology Dept [place], [place] [address] (Wo rk) 03/26/2022 Office Visit Cardiology Vitaliy Nobles MD [facility] ER CARDIOLOGY [place], [place] [address] (Wo rk) documented as of this encounter Visit Diagnoses Not on filedocumented in this encounter Care Teams Commissary Manager Relationship Specialty Start Date End Date Lovely Vicente MD PCP - General 04/16/15 [facility] [address] [place] [address] documented as of this encounter
--- OUTSIDE RECORDS SUMMARY | 2022-02-18 08:14 | XMS_ITS | Encounter Summary ---
:1945 Author Organization [facility] [address] Care Team Providers Name Role Phone Lovely Vicente MD Primary Care Provider Encounter Details Date Type Department Care Team Description 10/07/2017 Laboratory Appointment Lab 3L [facility] [place] [address] Social History Tobacco Use Types Packs/Day Years [...] [facility] er Cardiology Dept [place], [place] [address] (Wo rk) 03/26/2022 Office Visit Cardiology Vitaliy Nobles MD [facility] ER CARDIOLOGY [place], [place] [address] (Wo rk) documented as of [...] Signature Glucose Lvl 99 65 - 199 [facility] mg/dL [facility] Comment: Diabetes: >=200 mg/dL plus symp toms BUN 27 (H) 10 - 20 mg/dL [facility] Creatinine 1.07 0.80 - 1.50 mg/dL [facility] Sodium 143 135 - 145 mmol/L [facility] Potassium 4.7 3.5 - 5.0 mmol/L [facility] Anion Gap 13 5 - 15 mmol/L [facility] Calcium 8.4 (L) 8.5 - 10.5 mg/dL [facility] Estimated GFR >60 >=60 [facility] Comment: The reported eGFR should be multiplied b y 1.2 for patients. The MDRD is not an appropriate measure o f renal function for patients with body mass extremes or in patients with acute kidney failure. http://Pigit.Booklr/DHnkdep http://Pigit.Booklr/DHMCnkf Specimen Anatomical Collection Method Collection Time Receive d Time (Source) Location / / Volume Laterality Blood specimen 10/07/2017 8:48 AM 018 8:50 (specimen) EDT AM EDT Resulting Agency Comment Spec In Lab Danette Maxwell APRN CHEMISTRY ORDERABLES Performing Organization Address City/State/[place] [address] (ABNORMAL) pro-Brain Natriuretic Peptide (10/07/2017 8:48 AM EDT) P athologist Signature ProBNP 1,170 (H) <=125 [facility] pg/mL [facility] Specimen Anatomical Collection Method Collection Time Receive d Time (Source) Location / / Volume Laterality Blood specimen 10/07/2017 8:48 AM 018 8:50 (specimen) EDT AM EDT Resulting Agency Comment Spec In Lab Danette A Scribner STACIE CHEMISTRY ORDERABLES Performing Organization Address City/State/[place] [address] documented in this encounter Visit Diagnoses Diagnosis Chronic systolic heart failure Chronic systolic heart failure documented in this encounter Care Teams Physical Education Aide Relationship Specialty Start Date End Date Lovely Vicente MD PCP - General 04/16/[address] [place] [address] documented as of this encounter
--- OUTSIDE RECORDS SUMMARY | 2022-02-18 08:15 | XMS_ITS | Encounter Summary ---
:1945 [place] [address] Care Team Providers Name Role Phone Lovely Vicente MD Primary Care Provider Reason for Visit Auth/Cert Specialty Diagnoses / Procedures Referred By Contact Refer red To Contact Diagnoses Critical lower limb ischemia CELLULITIS RT FOOT Procedures EMERGENCY Referral ID Status Reason Start Date Expiration Date Visits Requ ested Visits Authorized [id number] 1 1 Encounter Details Date Type Department Care Team Description 08/06/2017 - Hospital Encounter 5 Yonathan Oneill lower limb ischemia; 08/16/2017 Su Flores MD Ischemic foot Hospital [facility] [address] [place] [id number] [phone] Social History Tobacco Use Types Packs/Day Years [...] 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 Patient [...] Dorsalis Pedis (Ankle) Artery ?132 ? 0.94 ??[place]-Biphasic ? Posterior Tibial (Ankle) Artery ??154 ? 1.10 ??[place]-Biphasic ? Fourth Toe ? 67 ?0.48 ?? [...] the foot. Discharge Conditions/Prognosis: Good Discharge to: [facility] Rehab Discharge Medications: Your Medications New [...] For any problems or questions please call [phone] ZELDA Smith, staffing consultant Nurse Clinician For issues on weeknights after 5pm and weekends please call [phone] and ask for the Vascular Fellow stoner out. General Instructions None Future Appointments and Orders Future Appointments Provider Department Dept Phone 08/26/2017 4:00 PM Aurelia Rivera PA [facility] [place] [phone] 09/07/2017 3:00 PM LAB, THREE L Lab 3L [facility] [phone] 09/07/2017 4:00 PM Luz Prescott MD [facility]ocrinology [facility] [place] [phone] 09/09/2017 8:00 AM Barbra Soares APRN [facility] [place] [phone] Please bring a list of your current [...] For any problems or questions please call [phone] ZELDA Smith, staffing consultant Nurse Clinician For issues on weeknights after 5pm and weekends please call [phone] and ask for the Vascular Fellow stoner out. documented in this encounter Medications at Time [...] of Care Management Discharge Note Patient Destination: [facility] ([facility]) [address] [place] [address] Transportation: with (at bedside) Time of Discharge: by 12 noon Level of Care: swing Patient Aware: yes Family Notified: yes Md to call report to: Yissel Quintero [employer] already called RN to call report to: [phone] Shirin Wolf Office of Care Management Pager [phone] Shirin Wolf RN - 08/16/2017 10:50 AM EST [facility] has offered pt swing bed. Pt and accept bed. will transport via car. [employer] Yissel Quintero aware; d/c paperwork will be completed by 12 noon. [facility] requests pt arrival by 1400 today; [employer], RN, and family aware. [employer] called [facility] and was told that they prefer pt to arrive with wound vac dressing applied but clamped. [employer] applied new wound vac dressing. RN has [facility] number to call report. PASSR completed; [employer] paged to request provider signature in highlighted space. Indigo from [facility] notified via email that home wound vac now cancelled; STORES has picked up from room and order cancelled. Packet started and provided to dip unit operator. Medicare important message explained to patient, patient signed. Copy provided to patient and signature page to OCM for inclusion in pt EMR. Radha Georges - 08/16/2017 10:34 AM EST Office of Care Management/Outcomes Specialist Patient Name: Gregory Hoang : 1945 Patient has been offered a swing bed at [facility]. The patient will be transported by private transportation. No MD to MD report necessary Please call Nursing Report to [phone], ask for garbage truck driver. Info to accompany patient: Narcotic Prescriptions Copies of Medication Administration Records and IV sheets for past 10 days. Plan: Outcomes Specialist will be available to the patient and Director Stars-RN and/or Leasing Assistant for further assistance. Patient will be discharged to: [place] [id number] Radha Powers, Outcomes Specialist Mira Black, VAMSI - 08/15/2017 10:05 PM EST [address] Flores to ask if he wanted to hold metoprolol dose. BP 95/58. OK to hold this dose Courtney Brito - 08/15/2017 3:26 PM EST Office of Care Management(OCM)/Outcomes Specialist(RS)/ D/C Planning re : Patient is medically ready for d/c today. RS has been in contact with [facility] to see if they could offer a bed. [facility] is still reviewing the case and need their MD to review chart prior to accepting or declining. OCM team needs to check in with [facility] tomorrow to check on status. 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 Vac in place. Rehab referrals ongoing. Can ambulate in hallway. Change VAC at bedside today. Naty Colindres RN - 08/14/2017 1:33 PM EST Patient Name: Gregory Hoang Patient Age: 72 y.o. Birthdate: 1945 Admit date: 08/06/2017 Attending Physician: Yonathan Smith MD We want him to go to a place for intensive therapy and not at a [place] [facility] [place] where he will be just sitting there and not getting any therapy. . Contacted by direct care RN, who said that patient and would like information about patient's referral to: [facility] PHONE: [phone] FAX: [phone] CM spoke with RS who said that [...] would be accepted to acute rehab at [facility] as Dr. Smith had recommended . [...] rehab. Await recommendations from PT. Covering pager #[phone]. 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 Metaphysics Teacher Kaitlin Saha, RN Pager #[phone] Payam Rosales - 08/13/2017 2:37 PM EST Proofer Apprentice Encounter Note Patient Name: Gregory Hoang : [id number] MR#: [id number] Admit Date: 08/06/2017 1:41 PM Hospital Day 7 days Narrative: Visited to introduce and assess acceptance of Proofer Apprentice services. Pt was awake, alert, oriented and in chair and family was there. Assessment:Patient coping positively with stresses of illness/hospitalization at this time. Pt says that he is hoping to get better and his family was there. Pt says that he has family care and supportand taking one day at time. Intervention and Outcome: Provided emotional support and encouraging presence. 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 A letter describing our affiliations was reviewed with them and theywere educated about their right to choose where referrals are placed. Patient requests referral to [facility] [employer]. PHONE: [phone] FAX: [phone]. And Home NPWT (Negative Pressure Wound Therapy) aka wound vac device made available to pt. Serial # confirmed. Reviewed [facility] Proof of Delivery/Assignment of Benefits Statement(POD/AOB) Form w patient or authorized agent signing on behalf of patient. Copy of POD/AOB provided to pt and other copy faxed to [employer] @ fax# [phone] Expected date of discharge: 08/12/2017. 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 Address: [address] [place] [address] [place] [address] (home) Mobile: Telephone Information: Referring Provider: No [...] SETUP performed by Manny Mcknight MD at [facility] MAIN OR ??? PRO CABG, ARTERIAL, SINGLE N/A 07/07/2017 @CABG, USING ARTERIAL GRAFT;SINGLE ARTERIAL GRAFT (WRVU 33.75) performed by Yuan Retana MD at [facility] MAIN OR ??? PRO CABG, ARTERY-VEIN, TWO N/A 07/07/2017 @CABG, TWO VENOUS GRAFTS & ARTERIAL GRAFT (WRVU 7.93) performed by Yuan Retana MD at [facility] MAIN OR ??? PRO COLONOSCOPY, REMV LESN, SNARE 01/16/2014 COLONOSCOPY, POLYPECTOMY, REMOVAL LESION BY SNARE performed by Nohemi Jaimes MD at [facility] ENDOSCOPY ??? PRO ENDOSCOPY W/VIDEO-ASST VEIN HARVEST, CABG Right 07/07/2017 ENDOSCOPIC HARVEST VEIN(S) FOR CABG (WRVU 0.31) performed by Yuan Retana MD at [facility] MAIN OR ??? 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 Address: [address] [place] [address] [place] [address] (home) Mobile: Telephone Information: Referring Provider: No [...] SETUP performed by Manny Mcknight MD at [facility] MAIN OR ??? PRO CABG, ARTERIAL, SINGLE N/A 07/07/2017 @CABG, USING ARTERIAL GRAFT;SINGLE ARTERIAL GRAFT (WRVU 33.75) performed by Yuan Retana MD at [facility] MAIN OR ??? PRO CABG, ARTERY-VEIN, TWO N/A 07/07/2017 @CABG, TWO VENOUS GRAFTS & ARTERIAL GRAFT (WRVU 7.93) performed by Yuan Retana MD at [facility] MAIN OR ??? PRO COLONOSCOPY, REMV LESN, SNARE 01/16/2014 COLONOSCOPY, POLYPECTOMY, REMOVAL LESION BY SNARE performed by Nohemi Jaimes MD at [facility] ENDOSCOPY ??? PRO ENDOSCOPY W/VIDEO-ASST VEIN HARVEST, CABG Right 07/07/2017 ENDOSCOPIC HARVEST VEIN(S) FOR CABG (WRVU 0.31) performed by Yuan Retana MD at [facility] MAIN OR ??? 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 Unsuccessful draw attempt, another cross enterprise integrator will come [facility] to collect blood for PTT test. 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 Vascular resident stoner out and will forward result to the team prior to rounds. Melba Cruz RN - 08/08/2017 4:06 AM EST Fall Event Note Gregory Hoang [id number] 08/08/2017 Time of Fall: 0400 Was the [...] Starkey MD - 08/07/2017 4:32 PM EST [facility] staff: Patient was seen and examined [...] They are in agreement with this plan. 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 Patient [...] SETUP performed by Manny Mcknight MD at [facility] MAIN OR ??? PRO CABG, ARTERIAL, SINGLE N/A 07/07/2017 @CABG, USING ARTERIAL GRAFT;SINGLE ARTERIAL GRAFT (WRVU 33.75) performed by Yuan Retana MD at [facility] MAIN OR ??? PRO CABG, ARTERY-VEIN, TWO N/A 07/07/2017 @CABG, TWO VENOUS GRAFTS & ARTERIAL GRAFT (WRVU 7.93) performed by Yuan Retana MD at [facility] MAIN OR ??? PRO COLONOSCOPY, REMV LESN, SNARE 01/16/2014 COLONOSCOPY, POLYPECTOMY, REMOVAL LESION BY SNARE performed by Nohemi Jaimes MD at [facility] ENDOSCOPY ??? PRO ENDOSCOPY W/VIDEO-ASST VEIN HARVEST, CABG Right 07/07/2017 ENDOSCOPIC HARVEST VEIN(S) FOR CABG (WRVU 0.31) performed by Yuan Retana MD at [facility] MAIN OR ??? PRO THYROIDECTOMY 03/28/2013 THYROIDECTOMY, TOTAL OR COMPLETE performed by Manny Mcknight MD at [facility] MAIN OR Functional Status/Social Hx: Quit smoking [...] left blue toes with CTA showing R GAS FITTER HELPER pseudoaneurysm (now thrombosed) and occluded ATs bilaterally. [...] 2.5x80 5. Completion RLE angiogram 6. L GAS FITTER HELPER angiogram 7. 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 - L GAS FITTER HELPER angriogram demonstrated: High femoral bifurcation over the proximal half of the femoral head. L GAS FITTER HELPER access in the distal L GAS FITTER HELPER. - Closure device: Mynx Technical Procedure: The [...] for a 45cm 5F Destination. V18 and Herrin and QuickCross catheters were used to select [...] 5F. A stationed picture of the L GAS FITTER HELPER was performed as the patient was noted to have a very high bifurcation. Access appeared in the distal R GAS FITTER HELPER. Closure and sheath removal was performed with [...] PM EST 1440 report called to 5 mattoon nurse Tessa AGUSTIN documented in this encounter [...] with pt and pt's spouse. Discharge to [facility]. Goal: Individualization & Mutuality Outcome: Outcome [...] sit/sit to supine -- Bed Mobility Goal, Austin Level independent -- Bed Mobility Goal, Date [...] days -- Transfer Training Goal, Activity Type lds-ar-piawm/cnieg-vz-qyb -- Transfer Train Goal, [place] Level conditional independence -- Transfer Train Goal, [...] call cabello within reach, Hourly rounding by RN/STITCHDOWN THREAD LASTER. Bed alarm / Chair alarm. Patient-specific fall [...] Smith MD - 08/15/2017 6:28 PM EST [facility] Operative Note Patient Name: Gregory Hoang : [id number] MR#: [id number] Case Date: 08/09/2017 Surgeon: Surgeon(s) and Role: [...] 2.5x80 5. Completion RLE angiogram 6. L GAS FITTER HELPER angiogram 7. Mynx closure Precautions/Restrictions: fall, sternal [...] other (see comments) (or swing bed) Pager: [phone] BASSAM ELIAS, PT 08/14/2017 Inpatient Physical Therapy [...] to Achieve by discharge Gait Training Goal, Austin Level conditional independence;set up required Gait Training [...] these facilities over the weekend except for [facility]. CM spoke with [facility] CM Drea Sandhu, VAMSI who said that they do not anticipate any beds over the weekend. Reviewed with patient/ that they need to be aware that patient will need to take the first bed offered at the facilities that they make referrals to. Their choices are: 1- [facility] PHONE: [phone] FAX: [phone] 2- [facility] ([facility]) [address] [place] [address] 3- [facility])([facility]) [address] [place] [address] I have discussed Medicare/Private Insurance [...] RS/CM on Wednesday to follow-up. Covering pager #[phone] for today. Plan of Care - Henrique [...] with additional findings of pseudoaneurysm on R GAS FITTER HELPER and bilateral anterior tibial artery occlusions. Was [...] an outpatient once discharged. Have patient call [phone] to set up an appointment. Follow-up: Dermatology will sign-off for now. Please do not hesitate to contact us if you have any questions orconcerns. Impression and Recommendations discussed with primary team on 08/13/2017. Karo Henderson MD Resident in Dermatology Section of Dermatology, Department of Surgery [facility] Pager [phone] Patient seen and evaluated with staff Sas Statistical Programmer: Halima Cordero MD Section of Dermatology [facility] Level of Resident Supervision: Direct [...] 2.5x80 5. Completion RLE angiogram 6. L GAS FITTER HELPER angiogram 7. Mynx closure Active Non-Hospital Problems [...] home with home health ([facility] PT&OT) Pager: [phone] YASIR TELLO OT 08/12/2017 Occupational Therapy Rehabilitation [...] 2.5x80 5. Completion RLE angiogram 6. L GAS FITTER HELPER angiogram 7. Mynx closure Past Medical History: [...] with 24/7 assistance and maximal services) Pager: [phone] NICHOLAS MORA, PT 08/12/2017 Physical Therapy Rehabilitation [...] sit/sit to supine -- Bed Mobility Goal, Austin Level independent -- Bed Mobility Goal, Outcome Achieved -- goal ongoing Goal: Gait Training Goal Stand Alone Therapy Goal Outcome: Ongoing (Interventions Implemented as Appropriate) 08/11/17 1310 08/12/17 1510 Gait Training Goal Gait Training Goal, Date Established 08/11/17 -- Gait Training Goal, Time to Achieve 5 - 7 days -- Gait Training Goal, Austin Level conditional independence -- Gait Training Goal, [...] days -- Transfer Training Goal, Activity Type yzp-aj-arnso/rbtyz-oa-dcn -- Transfer Train Goal, Austin Level conditional independence -- Transfer Training Goal, [...] Smith MD - 08/11/2017 2:52 PM EST [facility] Operative Note Patient Name: Gregory Hoang : [id number] MR#: [id number] Case Date: 08/11/2017 Surgeon: Surgeon(s) and Role: [...] 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 Completion RLE angiogram 6. L GAS FITTER HELPER angiogram 7. Mynx closure He is very [...] Anticipated Discharge Disposition: inpatient rehabilitation facility Pager: [phone] LAWRENCE GONZALEZ, PT 08/11/2017 Physical Therapy Rehabilitation [...] to sit/sit to supine Bed Mobility Goal, Austin Level independent Goal: Gait Training Goal Stand Alone Therapy Goal Outcome: Ongoing (Interventions Implemented as Appropriate) 08/11/17 1310 Gait Training Goal Gait Training Goal, Date Established 08/11/17 Gait Training Goal, Time to Achieve 5 - 7 days Gait Training Goal, Austin Level conditional independence Gait Training Goal, Assist [...] 7 days Transfer Training Goal, Activity Type ecy-cu-supfv/cxrdd-lg-kcm Transfer Train Goal, Austin Level conditional independence Plan of [facility] Annetta Sandoval RN - 08/11/2017 7:21 [...] Participants patient;physician;nursing Plan of Care - Mira Turong RN - 08/09/2017 7:53 PM EST Problem: [...] call cabello within reach, Hourly rounding by RN/STITCHDOWN THREAD LASTER. Bed alarm / Chair alarm. ? Patient-specific [...] 04/05/2013 Hospitalizations Within the Past 30 Days: [facility] 07/20/2017 Anticipated Length Of Stay (If known): Expected Length of Hospitalization: 5-7 days2-3 days Current Decision-Making Capacity: Alert and oriented x 4 Advance Care Planning: on file Kisha Hoang [facility] [phone] Current Coping/Education/Information Needs: pt and spouse state [...] Health/Prescription Coverage: Primary Insurance: MEDICARE Secondary Insurance: [employer] [facility] Prescription Coverage: See above Preferred Pharmacy: [facility] Other: N/A Primary Care Provider: Lovely Vicente MD [phone] Patient/Caregiver Goals of Treatment: Patient plans to return home when medically ready Potential Needs for Transition of Care: Rehab/SNF: N/A Home Health: [facility]. DME: pt has a cane and [...] of care planning. Kaitlin Saha RN Pager: [phone] Plan of Care - Melba Jaramillo RN [...] Overview Goal: Plan of Care Review 08/08/17 6274 Coping/Psychosocial Plan Of Care Reviewed With patient [...] call cabello within reach, Hourly rounding by RN/STITCHDOWN THREAD LASTER. Bed alarm / Chair alarm. Patient-specific fall [...] at bedside and MD TEAM Carrying pager [phone] contacted (via Radio page) and notified of [...] Liz Poole PA [facility] er Cardiology Dept [place], [place] [address] (Wo rk) 03/26/2022 Office Visit Cardiology Vitaliy Nobles MD [facility] ER CARDIOLOGY [place], [place] [address] (Wo rk) documented as [...] section. TYPE AND SCREEN Routine 08/09/2017 1:10 ([facility]/CGP/SHANDA) AM EST BASIC METABOLIC PANEL Routine 08/09/2017 [...] Signature POC Glucose 160 65 - 199 [facility] mg/dL [facility] Comment: Supplemental ranges: <140 mg/dL before meals <180 mg/dL all other times of the day Specimen Anatomical Collection Method Collection Time Receive d Time (Source) Location / / Volume Laterality Blood specimen 08/16/2017 7:28 AM 018 7:28 (specimen) EST AM EST Yonatahn Smith MD POINT OF CARE TEST ORDERABLE S Performing Organization Address City/State/[place] [address] (ABNORMAL) Differential, Automated (08/16/2017 5:08 AM EST) Patholo gist Method Time Signature Neutrophils % 73.9 % [facility] Neutr Abs (ANC) 5.37 1.70 - [facility] 6.10 [facility] x10(3)/[facility] LABORATORY Lymphocytes % 10.1 % [facility] Lymphocytes Abs 0.7 (L) 0.9 - 3.2 [facility] x10(3)/[facility] LABORATORY Monocytes % 10.1 % [facility] Monocyte Abs 0.7 0.3 - 0.9 [facility] x10(3)/[facility] LABORATORY Eosinophils % 5.1 % [facility] Eosinophils Abs 0.4 0.0 - 0.4 [facility] x10(3)/[facility] LABORATORY Basophils % 0.4 % [facility] Basophils Abs 0.0 0.0 - 0.1 [facility] x10(3)/[facility] LABORATORY Immature Gran % 0.40 % [facility] Comment: Immature granulocytes(IG's)percentage an d absolute count will include metamyelocytes, myelocytes, and promyelo cytes. Blood smears from CBCs yielding IG's will be scanned manually for concor dance. If this scan disagrees with the automated IG or if promyelocytes are not ed, a manual differential will be performed. Melisa Gran Abs 0.03 0.00 - 0.04 x10(3)/[facility] Specimen Anatomical Collection Method Collection Time Receive d Time (Source) Location / / Volume Laterality Blood specimen 08/16/2017 5:08 AM 018 5:20 (specimen) EST AM EST Resulting Agency Comment Spec In Lab Yonathan Smith MD HEMATOLOGY ORDERABLES Performing Organization Address City/State/[place] [address] (ABNORMAL) Hemogram (08/16/2017 5:08 AM EST) Analysis Performed At Patho logist Time Signature WBC 7.3 4.0 - 9.5 [facility] x10(3)/[facility] LABORATORY RBC 3.36 (L) 4.58 - [facility] 5.54 [facility] x10(6)/[facility] LABORATORY Hemoglobin 9.7 (L) 13.7 - [facility] 16.5 gm/dL [facility] Hematocrit 30.3 (L) 40.5 - [facility] 48.5 % [facility] MCV 90.2 82.9 - [facility] 93.1 [facility] LABORATORY MCH 28.9 27.5 - [facility] 32.1 pg [facility] MCHC 32.0 32.0 - [facility] 35.7 gm/dL [facility] Platelets 282 145 - 357 [facility] x10(3)/[facility] LABORATORY RDWSD 53.9 (H) 36.0 - [facility] 45.0 [facility] LABORATORY RDWCV 16.5 (H) 11.4 - [facility] 13[facility]8 % [facility] LABORATORY MPV 9.0 7.6 - 12.9 [facility] LABORATORY nRBC % Auto 0.0 % [facility]ORAT[facility] nRBC Abs Auto 0.000 0.000 - [facility] 0.000 [facility] x10(3)/[facility] LABORATORY Specimen Anatomical Collection Method Collection Time Receive d Time (Source) Location / / Volume Laterality Blood specimen 08/16/2017 5:08 AM 018 5:20 (specimen) EST AM EST Resulting Agency Comment Spec In Lab Yonathan Smith MD HEMATOLOGY ORDERABLES Performing Organization Address City/State/[place] [address] (ABNORMAL) Basic Metabolic Panel (non-fasting) (08/16/2017 5:08 AM EST) athologist Signature Glucose Lvl 141 65 - 199 [facility] mg/dL [facility] Comment: Diabetes: >=200 mg/dL plus symp toms BUN 29 (H) 10 - 20 mg/dL [facility] LABORATORY Creatinine 1.25 0.80 - 1.50 mg/dL [facility] [...] estions. Chloride 99 98 - 107 mmol/L [facility]OR[facility] CO2 28 22 - 31 mmol/L [facility] Anion Gap 13 5 - 15 mmol/L [facility]OR[facility]ORY Calcium 8.7 8.5 - 10.5 mg/dL [facility] LABORATORY Estimated GFR 57 (L) >=60 [facility] Comment: The reported eGFR should be multiplied b y 1.2 for patients. The MDRD is not an appropriate measure o f renal function for patients with body mass extremes or in patients with acute kidney failure. http://Drug Response Dx/DHnkdep http://Drug Response Dx/DHMCnkf Specimen Anatomical Collection Method Collection Time Receive d Time (Source) Location / / Volume Laterality Blood specimen 08/16/2017 5:08 AM 018 5:20 (specimen) EST AM EST Resulting Agency Comment Spec In Lab Yonathan Smith MD CHEMISTRY ORDERABLES Performing Organization Address City/State/ZIP Code Phon e Number [place] [id number] (ABNORMAL) Prothrombin Time (08/16/2017 5:08 AM EST) athologist Signature PT 25.2 (H) 11.8 - 14.0 [facility] LABORATORY INR 2.3 (H) 0.9 - 1.1 [facility] LABORATORY Comment: An INR <2.0 indicates [...] Smith MD HEMATOLOGY ORDERABLES Performing Organization Address City/[facility]/ZIP Code Phon e Number [address] POCT Glucose (08/16/2017 4:09 AM EST) athologist Signature POC Glucose 147 65 - 199 [facility] mg/dL [facility] Comment: Supplemental ranges: <140 mg/dL before meals <180 mg/dL all other times of the day Specimen Anatomical Collection Method Collection Time Receive d Time (Source) Location / / Volume Laterality Blood specimen 08/16/2017 4:09 AM 018 4:09 (specimen) EST AM EST Yonathan Smith MD POINT OF CARE TEST ORDERABLE S Performing Organization Address City/[facility]/[place] [address] POCT Glucose (08/15/2017 11:56 PM EST) athologist Signature POC Glucose 176 65 - 199 [facility] mg/dL [facility] Comment: Supplemental ranges: <140 mg/dL before meals <180 mg/dL all other times of the day Specimen Anatomical Collection Method Collection Time Receive d Time (Source) Location / / Volume Laterality Blood specimen 08/15/2017 11:56 8 (specimen) PM EST 11:56 PM EST Yonathan Smith MD POINT OF CARE TEST ORDERABLE S Performing Organization Address City/[facility]/ZIP Code Phon e Number [address] POCT Glucose (08/15/2017 8:05 PM EST) athologist Signature POC Glucose 136 65 - 199 [facility] mg/dL [facility] Comment: Supplemental ranges: <140 mg/dL before meals <180 mg/dL all other times of the day Specimen Anatomical Collection Method Collection Time Receive d Time (Source) Location / / Volume Laterality Blood specimen 08/15/2017 8:05 PM 018 8:05 (specimen) EST PM EST Yonathan Smith MD POINT OF CARE TEST ORDERABLE S Performing Organization Address City/State/ZIP Code Phon e Number [address] (ABNORMAL) POCT Glucose (08/15/2017 4:50 PM EST) athologist Signature POC Glucose 232 (H) 65 - 199 [facility] mg/dL [facility] Comment: Supplemental ranges: <140 mg/dL before meals <180 mg/dL all other times of the day Specimen Anatomical Collection Method Collection Time Receive d Time (Source) Location / / Volume Laterality Blood specimen 08/15/2017 4:50 PM 018 4:50 (specimen) EST PM EST Yonathan Smith MD POINT OF CARE TEST ORDERABLE S Performing Organization Address City/[facility]/ZIP Code Phon e Number [address] POCT Glucose (08/15/2017 12:04 PM EST) athologist Signature POC Glucose 135 65 - 199 [facility] mg/dL [facility] Comment: Supplemental ranges: <140 mg/dL before meals <180 mg/dL all other times of the day Specimen Anatomical Collection Method Collection Time Receive d Time (Source) Location / / Volume Laterality Blood specimen 08/15/2017 12:04 8 (specimen) PM EST 12:04 PM EST Yonathan Smith MD POINT OF CARE TEST ORDERABLE S Performing Organization Address City/[facility]/[place] [address] POCT Glucose (08/15/2017 7:36 AM EST) athologist Signature POC Glucose 124 65 - 199 [facility] mg/dL [facility] Comment: Supplemental ranges: <140 mg/dL before meals <180 mg/dL all other times of the day Specimen Anatomical Collection Method Collection Time Receive d Time (Source) Location / / Volume Laterality Blood specimen 08/15/2017 7:36 AM 018 7:36 (specimen) EST AM EST Yonathan Smith MD POINT OF CARE TEST ORDERABLE S Performing Organization Address City/[facility]/[place] [address] (ABNORMAL) Differential, Automated (08/15/2017 6:22 AM EST) [facility] Method Time Signature Neutrophils % 76.1 % [facility]OR[facility] Neutr Abs (ANC) 6.62 (H) 1.70 - [facility] 6.10 [facility] x10(3)/[facility] LABORATORY Lymphocytes % 9.3 % [facility]OR[facility] Lymphocytes Abs 0.8 (L) 0.9 - 3.2 [facility] x10(3)/[facility] LABORATORY Monocytes % 9.4 % [facility]OR[facility] Monocyte Abs 0.8 0.3 - 0.9 [facility] x10(3)/[facility] LABORATORY Eosinophils % 4.0 % [facility]OR[facility] Eosinophils Abs 0.4 0.0 - 0.4 [facility] x10(3)/[facility] LABORATORY Basophils % 0.6 % [facility]OR[facility] Basophils Abs 0.0 0.0 - 0.1 [facility] x10(3)/[facility] LABORATORY Immature Gran % 0.60 % [facility]OR[facility]ORY Comment: Immature granulocytes(IG's)percentage an d absolute count will include metamyelocytes, myelocytes, and promyelo cytes. Blood smears from CBCs yielding IG's will be scanned manually for concor dance. If this scan disagrees with the automated IG or if promyelocytes are not ed, a manual differential will be performed. Melisa Gran Abs 0.05 (H) 0.00 - 0.04 x10(3)/[facility] LABORATORY Specimen Anatomical Collection Method Collection Time Receive d Time (Source) Location / / Volume Laterality Blood specimen 08/15/2017 6:22 AM 018 6:33 (specimen) EST AM EST Resulting Agency Comment Spec In Lab Yonathan Smith MD HEMATOLOGY ORDERABLES Performing Organization Address City/[facility]/[place] [address] (ABNORMAL) Hemogram (08/15/2017 6:22 AM EST) Analysis Performed At Patho logist Time Signature WBC 8.7 4.0 - 9.5 [facility] x10(3)/[facility] LABORATORY RBC 3.21 (L) 4.58 - [facility] 5.54 [facility] x10(6)/[facility] LABORATORY Hemoglobin 9.1 (L) 13.7 - [facility]/dL [facility] Hematocrit 29.0 (L) 40.5 - [facility] 48.5 % [facility] MCV 90.3 82.9 - [facility] 93.1 [facility] LABORATORY MCH 28.3 27.5 - [facility] 32.1 pg [facility] MCHC 31.4 (L) 32.0 - [facility] 35.7 gm/dL [facility] Platelets 254 145 - 357 [facility] x10(3)/[facility] LABORATORY RDWSD 53.9 (H) 36.0 - [facility] 45.0 [facility] LABORATORY RDWCV 16.3 (H) 11.4 - [facility] 13.8 % [facility] MPV 8.8 7.6 - 12.9 [facility] LABORATORY nRBC % Auto 0.0 % [facility] LABORATORY nRBC Abs Auto 0.000 0.000 - [facility] 0.000 [facility] x10(3)/[facility] LABORATORY Specimen Anatomical Collection Method Collection Time Receive d Time (Source) Location / / Volume Laterality Blood specimen 08/15/2017 6:22 AM 018 6:33 (specimen) EST AM EST Resulting Agency Comment Spec In Lab Yonathan Smith MD HEMATOLOGY ORDERABLES Performing Organization Address City/State/[place] [address] (ABNORMAL) Basic Metabolic Panel (non-fasting) (08/15/2017 6:22 AM EST) P athologist Signature Glucose Lvl 118 65 - 199 [facility] mg/dL [facility] Comment: Diabetes: >=200 mg/dL plus symp toms BUN 27 (H) 10 - 20 mg/dL [facility] LABORATORY Creatinine 1.12 0.80 - 1.50 mg/dL [facility] [...] - 107 mmol/L [facility]OR[facility] CO2 29 22 - 31 mmol/L [facility] Anion Gap 11 5 - 15 mmol/L [facility]OR[facility]ORY Calcium 8.8 8.5 - 10.5 mg/dL [facility] LABORATORY Estimated GFR >60 >=60 [facility]ORY Comment: The reported eGFR should be multiplied b y 1.2 for patients. The MDRD is not an appropriate measure o f renal function for patients with body mass extremes or in patients with acute kidney failure. http://Drug Response Dx/DHnkdep http://Drug Response Dx/DHMCnkf Specimen Anatomical Collection Method Collection Time Receive d Time (Source) Location / / Volume Laterality Blood specimen 08/15/2017 6:22 AM 018 6:33 (specimen) EST AM EST Resulting Agency Comment Spec In Lab Yonathan Smith MD CHEMISTRY ORDERABLES Performing Organization Address City/State/[place] [address] (ABNORMAL) Prothrombin Time (08/15/2017 6:22 AM EST) athologist Signature PT 21.9 (H) 11.8 - 14.0 [facility] LABORATORY INR 1.9 (H) 0.9 - 1.1 [facility]ORATORY Comment: An INR <2.0 indicates [...] Smith MD HEMATOLOGY ORDERABLES Performing Organization Address City/[facility]/ZIP Code Phon e Number [address] POCT Glucose (08/15/2017 4:33 AM EST) athologist Signature POC Glucose 164 65 - 199 [facility] mg/dL [facility] Comment: Supplemental ranges: <140 mg/dL before meals <180 mg/dL all other times of the day Specimen Anatomical Collection Method Collection Time Receive d Time (Source) Location / / Volume Laterality Blood specimen 08/15/2017 4:33 AM 018 4:33 (specimen) EST AM EST Yonathan Smith MD POINT OF CARE TEST ORDERABLE S Performing Organization Address City/[facility]/[place] [address] POCT Glucose (08/15/2017 12:12 AM EST) athologist Signature POC Glucose 89 65 - 199 [facility] mg/dL [facility] Comment: Supplemental ranges: <140 mg/dL before meals <180 mg/dL all other times of the day Specimen Anatomical Collection Method Collection Time Receive d Time (Source) Location / / Volume Laterality Blood specimen 08/15/2017 12:12 8 (specimen) AM EST 12:12 AM EST Yonathan Smith MD POINT OF CARE TEST ORDERABLE S Performing Organization Address City/[facility]/[place] [address] (ABNORMAL) POCT Glucose (08/14/2017 8:07 PM EST) athologist Signature POC Glucose 204 (H) 65 - [address] [facility] mg/dL [facility] Comment: Supplemental ranges: <140 mg/dL before meals <180 mg/dL all other times of the day Specimen Anatomical Collection Method Collection Time Receive d Time (Source) Location / / Volume Laterality Blood specimen 08/14/2017 8:07 PM 018 8:07 (specimen) EST PM EST Yonathan Smith MD POINT OF CARE TEST ORDERABLE S Performing Organization Address City/State/ZIP Code Phon e Number [address] POCT Glucose (08/14/2017 5:11 PM EST) athologist Signature POC Glucose 174 65 - 199 [facility] mg/dL [facility] Comment: Supplemental ranges: <140 mg/dL before meals <180 mg/dL all other times of the day Specimen Anatomical Collection Method Collection Time Receive d Time (Source) Location / / Volume Laterality Blood specimen 08/14/2017 5:11 PM 018 5:11 (specimen) EST PM EST Yonathan Smith MD POINT OF CARE TEST ORDERABLE S Performing Organization Address City/State/ZIP Code Phon e Number [address] POCT Glucose (08/14/2017 12:10 PM EST) athologist Signature POC Glucose 141 65 - [address] [facility] mg/dL [facility] Comment: Supplemental ranges: <140 mg/dL before meals <180 mg/dL all other times of the day Specimen Anatomical Collection Method Collection Time Receive d Time (Source) Location / / Volume Laterality Blood specimen 08/14/2017 12:10 8 (specimen) PM EST 12:10 PM EST Yonathan Smith MD POINT OF CARE TEST ORDERABLE S Performing Organization Address City/State/[place] [address] POCT Glucose (08/14/2017 8:07 AM EST) P athologist Signature POC Glucose 158 65 - 199 [facility] mg/dL [facility] Comment: Supplemental ranges: <140 mg/dL before meals <180 mg/dL all other times of the day Specimen Anatomical Collection Method Collection Time Receive d Time (Source) Location / / Volume Laterality Blood specimen 08/14/2017 8:07 AM 018 8:07 (specimen) EST AM EST Yonathan Smith MD POINT OF CARE TEST ORDERABLE S Performing Organization Address City/State/[place] [address] (ABNORMAL) Differential, Automated (08/14/2017 4:52 AM EST) Patholo gist Method Time Signature Neutrophils % 78.6 % [facility]ORATORY Neutr Abs (ANC) 7.70 (H) 1.70 - [facility] 6.10 [facility] x10(3)/[facility] LABORATORY Lymphocytes % 7.8 % [facility]ORATORY Lymphocytes Abs 0.8 (L) 0.9 - 3.2 [facility] x10(3)/[facility] LABORATORY Monocytes % 8.8 % [facility]ORATORY Monocyte Abs 0.9 0.3 - 0.9 [facility] x10(3)/[facility] LABORATORY Eosinophils % 4.0 % [facility]OR[facility]ORY Eosinophils Abs 0.4 0.0 - 0.4 [facility] x10(3)/[facility] LABORATORY Basophils % 0.5 % [facility]ORATORY Basophils Abs 0.0 0.0 - 0.1 [facility] x10(3)/[facility] LABORATORY Immature Gran % 0.30 % [facility]OR[facility]ORY Comment: Immature granulocytes(IG's)percentage an d absolute count will include metamyelocytes, myelocytes, and promyelo cytes. Blood smears from CBCs yielding IG's will be scanned manually for concor dance. If this scan disagrees with the automated IG or if promyelocytes are not ed, a manual differential will be performed. Melisa Gran Abs 0.03 0.00 - 0.04 x10(3)/[facility] LABORATORY Specimen Anatomical Collection Method Collection Time Receive d Time (Source) Location / / Volume Laterality Blood specimen 08/14/2017 4:52 AM 018 5:08 (specimen) EST AM EST Resulting Agency Comment Spec In Lab Yonathan Smith MD HEMATOLOGY ORDERABLES Performing Organization Address City/State/[place] [address] (ABNORMAL) Hemogram (08/14/2017 4:52 AM EST) Analysis Performed At Patho logist Time Signature WBC 9.8 (H) 4.0 - 9.5 [facility] x10(3)/[facility] LABORATORY RBC 3.32 (L) 4.58 - [facility] 5.54 [facility] x10(6)/[facility] LABORATORY Hemoglobin 9.5 (L) 13.7 - [facility] 16.5 gm/dL [facility] LABORATORY Hematocrit 30.3 (L) 40.5 - [facility] 48.5 % [facility] LABORATORY MCV 91.3 82.9 - [facility] 93.1 [facility] LABORATORY MCH 28.6 27.5 - [facility] 32.1 pg [facility]ORATORY MCHC 31.4 (L) 32.0 - [facility] 35.7 gm/dL [facility]ORY Platelets 263 145 - 357 [facility] x10(3)/[facility] LABORATORY RDWSD 54.8 (H) 36.0 - [facility] 45.0 [facility] LABORATORY RDWCV 16.5 (H) 11.4 - [facility] 13.8 % [facility] LABORATORY MPV 9.1 7.6 - 12.9 [facility] LABORATORY nRBC % Auto 0.0 % [facility]ORATORY nRBC Abs Auto 0.000 0.000 - [facility] 0.000 [facility] x10(3)/[facility] LABORATORY Specimen Anatomical Collection Method Collection Time Receive d Time (Source) Location / / Volume Laterality Blood specimen 08/14/2017 4:52 AM 018 5:08 (specimen) EST AM EST Resulting Agency Comment Spec In Lab Yonatahn Smith MD HEMATOLOGY ORDERABLES Performing Organization Address City/[facility]/[place] [address] (ABNORMAL) Prothrombin Time (08/14/2017 4:52 AM EST) athologist Signature PT 18.8 (H) 11.8 - 14.0 [facility] LABORATORY INR 1.6 (H) 0.9 - 1.1 [facility] LABORATORY Comment: An INR <2.0 indicates [...] Smith MD HEMATOLOGY ORDERABLES Performing Organization Address City/[facility]/[place] [address] (ABNORMAL) Basic Metabolic Panel (non-fasting) (08/14/2017 4:52 AM EST) athologist Signature Glucose Lvl 135 65 - 199 [facility] mg/dL [facility] Comment: Diabetes: >=200 mg/dL plus symp toms BUN 25 (H) 10 - 20 mg/dL [facility] LABORATORY Creatinine 1.36 0.80 - 1.50 mg/dL [facility] LABORATORY Sodium 141 135 - 145 [...] estions. Chloride 100 98 - 107 mmol/L [facility] LABORATORY CO2 28 22 - 31 mmol/L [facility] LABORATORY Anion Gap 13 5 - 15 mmol/L [facility] LABORATORY Calcium 8.5 8.5 - 10.5 mg/dL [facility] LABORATORY Estimated GFR 52 (L) >=60 [facility]ORY Comment: The reported eGFR should be multiplied b y 1.2 for patients. The MDRD is not an appropriate measure o f renal function for patients with body mass extremes or in patients with acute kidney failure. http://Drug Response Dx/DHnkdep http://Drug Response Dx/DHMCnkf Specimen Anatomical Collection Method Collection Time Receive d Time (Source) Location / / Volume Laterality Blood specimen 08/14/2017 4:52 AM 018 5:08 (specimen) EST AM EST Resulting Agency Comment Spec In Lab Yonathan Smith MD CHEMISTRY ORDERABLES Performing Organization Address City/[facility]/ZIP Code Phon e Number [address] POCT Glucose (08/14/2017 3:56 AM EST) athologist Signature POC Glucose 135 65 - 199 [facility] mg/dL [facility]ORY Comment: Supplemental ranges: <140 mg/dL before meals <180 mg/dL all other times of the day Specimen Anatomical Collection Method Collection Time Receive d Time (Source) Location / / Volume Laterality Blood specimen 08/14/2017 3:56 AM 018 3:56 (specimen) EST AM EST Yonathan Smith MD POINT OF CARE TEST ORDERABLE S Performing Organization Address City/[facility]/ZIP Code Phon e Number [address] POCT Glucose (08/13/2017 11:13 PM EST) athologist Signature POC Glucose 118 65 - 199 [facility] mg[facility]dL [facility]ORY Comment: Supplemental ranges: <140 mg/dL before meals <180 mg/dL all other times of the day Specimen Anatomical Collection Method Collection Time Receive d Time (Source) Location / / Volume Laterality Blood specimen 08/13/2017 11:13 8 (specimen) PM EST 11:13 PM EST Yonathan Smith MD POINT OF CARE TEST ORDERABLE S Performing Organization Address City/State/[place] [address] (ABNORMAL) POCT Glucose (08/13/2017 8:08 PM EST) athologist Signature POC Glucose 204 (H) 65 - 199 [facility] mg/dL [facility] Comment: Supplemental ranges: <140 mg/dL before meals <180 mg/dL all other times of the day Specimen Anatomical Collection Method Collection Time Receive d Time (Source) Location / / Volume Laterality Blood specimen 08/13/2017 8:08 PM 018 8:08 (specimen) EST PM EST Yonathan Smith MD POINT OF CARE TEST ORDERABLE S Performing Organization Address City/State/[place] [address] POCT Glucose (08/13/2017 4:02 PM EST) athologist Signature POC Glucose 145 65 - 199 [facility] mg/dL [facility] Comment: Supplemental ranges: <140 mg/dL before meals <180 mg/dL all other times of the day Specimen Anatomical Collection Method Collection Time Receive d Time (Source) Location / / Volume Laterality Blood specimen 08/13/2017 4:02 PM 018 4:02 (specimen) EST PM EST Yonathan Smith MD POINT OF CARE TEST ORDERABLE S Performing Organization Address City/State/[place] [address] POCT Glucose (08/13/2017 11:31 AM EST) athologist Signature POC Glucose 179 65 - 199 [facility] mg/dL [facility] Comment: Supplemental ranges: <140 mg/dL before meals <180 mg/dL all other times of the day Specimen Anatomical Collection Method Collection Time Receive d Time (Source) Location / / Volume Laterality Blood specimen 08/13/2017 11:31 8 (specimen) AM EST 11:31 AM EST Yonathan Smith MD POINT OF CARE TEST ORDERABLE S Performing Organization Address City/[facility]/[place] [address] (ABNORMAL) POCT Glucose (08/13/2017 10:16 AM EST) P athologist Signature POC Glucose 211 (H) 65 - 199 [facility] mg/dL [facility] Comment: Supplemental ranges: <140 mg/dL before meals <180 mg/dL all other times of the day Specimen Anatomical Collection Method Collection Time Receive d Time (Source) Location / / Volume Laterality Blood specimen 08/13/2017 10:16 8 (specimen) AM EST 10:16 AM EST Yonathan Smith MD POINT OF CARE TEST ORDERABLE S Performing Organization Address City/State/[place] [address] JULIAN, legs, multiple levels (08/13/2017 7:42 AM EST) Component Value Ref Test Analysis Performed At Patholo gist Range Method Time Signature VB Text Department: Vascular Surgery Lab VASCUBASE Report Patient: [id number] (GREGORY HOANG) CPT: 95541 ICD10: I99.8 Referring Physician: YONATHAN SMITH ?? Indications: s/p R 1,2,3 toe amps with red left foot, need n ew baseline Diabetes mellitus: yes ICD10 Diagnosis Code: I99.8 Findings: Right ?Pressure (mm Hg) ?? JULIAN ??Waveform ?TBI ?? Brachial Artery ?138 ? Dorsalis Pedis (Ankle) Arter y ?132 ? 0.94 ??[place] ? Posterior Tibial (Ankle) Art anila ??154 ? 1.10 ??[place] ? Fourth Toe ? 67 ? 0.48 [...] Signature POC Glucose 156 65 - 199 [facility] mg/dL [facility] Comment: Supplemental ranges: <140 mg/dL before meals <180 mg/dL all other times of the day Specimen Anatomical Collection Method Collection Time Receive d Time (Source) Location / / Volume Laterality Blood specimen 08/13/2017 7:33 AM 018 7:33 (specimen) EST AM EST Yonathan Smith MD POINT OF CARE TEST ORDERABLE S Performing Organization Address City/[facility]/[place] [address] (ABNORMAL) Differential, Automated (08/13/2017 5:33 AM EST) Patholo gist Method Time Signature Neutrophils % 77.8 % [facility] Neutr Abs (ANC) 7.83 (H) 1.70 - [facility] 6.10 [facility] x10(3)/[facility] L LABORATORY Lymphocytes % 8.4 % [facility] Lymphocytes Abs 0.8 (L) 0.9 - 3.2 [facility] x10(3)/[facility] LABORATORY Monocytes % 8.3 % [facility] Monocyte Abs 0.8 0.3 - 0.9 [facility] x10(3)/[facility] LABORATORY Eosinophils % 4.6 % [facility] Eosinophils Abs 0.5 (H) 0.0 - 0.4 [facility] x10(3)/[facility] LABORATORY Basophils % 0.5 % [facility] Basophils Abs 0.0 0.0 - 0.1 [facility] x10(3)/[facility] LABORATORY Immature Gran % 0.40 % [facility] Comment: Immature granulocytes(IG's)percentage an d absolute count will include metamyelocytes, myelocytes, and promyelo cytes. Blood smears from CBCs yielding IG's will be scanned manually for concor dance. If this scan disagrees with the automated IG or if promyelocytes are not ed, a manual differential will be performed. Melisa Gran Abs 0.04 0.00 - 0.04 x10(3)/[facility] LABORATORY Specimen Anatomical Collection Method Collection Time Receive d Time (Source) Location / / Volume Laterality Blood specimen 08/13/2017 5:33 AM 018 6:04 (specimen) EST AM EST Resulting Agency Comment Spec In Lab Yonathan Smith MD HEMATOLOGY ORDERABLES Performing Organization Address City/State/[place] [address] (ABNORMAL) Hemogram (08/13/2017 5:33 AM EST) Analysis Performed At Patho logist Time Signature WBC 10.1 (H) 4.0 - 9.5 [facility] x10(3)/[facility] LABORATORY RBC 3.21 (L) 4.58 - [facility] 5.54 [facility] x10(6)/[facility] LABORATORY Hemoglobin 9.2 (L) 13.7 - [place] 16.5 gm/dL [facility] Hematocrit 29.6 (L) 40.5 - [place] 48.5 % [facility] MCV 92.2 82.9 - [place] 93.1 [facility] LABORATORY MCH 28.7 27.5 - [place] 32.1 pg [facility] MCHC 31.1 (L) 32.0 - [place] 35.7 gm/dL [facility] Platelets 263 145 - 357 [facility] x10(3)/[facility] LABORATORY RDWSD 54.8 (H) 36.0 - [place] 45.0 [facility] LABORATORY RDWCV 16.4 (H) 11.4 - [facility] SU 13.8 % [facility] MPV 9.2 7.6 - 12.9 [facility] nRBC % Auto 0.0 % [facility] nRBC Abs Auto 0.000 0.000 - [place] [facility] 0.000 [facility] x10(3)/[facility] LABORATORY Specimen Anatomical Collection Method Collection Time Receive d Time (Source) Location / / Volume Laterality Blood specimen 08/13/2017 5:33 AM 018 6:04 (specimen) EST AM EST Resulting Agency Comment Spec In Lab Yonathan Smith MD HEMATOLOGY ORDERABLES Performing Organization Address City/State/[place] [address] (ABNORMAL) Prothrombin Time (08/13/2017 5:33 AM EST) athologist Signature PT 17.3 (H) 11.8 - 14.0 [facility] LABORATORY INR 1.4 (H) 0.9 - 1.1 [facility] Comment: An INR <2.0 indicates [...] Organization Address City/State/[place] [address] (ABNORMAL) Basic Metabolic Panel (non-fasting) (08/13/2017 5:33 AM EST) athologist Signature Glucose Lvl 126 65 - 199 [facility] mg/dL [facility] Comment: Diabetes: >=200 mg/dL plus symp toms BUN 18 10 - 20 mg/dL [facility] Creatinine 1.16 0.80 - 1.50 mg/dL [facility] LABOR[facility]ORY Sodium 141 135 - 145 [...] estions. Chloride 100 98 - 107 mmol/L [facility] CO2 29 22 - 31 mmol/L [facility] Anion Gap 12 5 - 15 mmol/L [facility] Calcium 7.9 (L) 8.5 - 10.5 mg/dL [facility] LABORATORY Estimated GFR >60 >=60 [facility] Comment: The reported eGFR should be multiplied b y 1.2 for patients. The MDRD is not an appropriate measure o f renal function for patients with body mass extremes or in patients with acute kidney failure. http://Drug Response Dx/DHnkdep http://Drug Response Dx/DHMCnkf Specimen Anatomical Collection Method Collection Time Receive d Time (Source) Location / / Volume Laterality Blood specimen 08/13/2017 5:33 AM 018 6:04 (specimen) EST AM EST Resulting Agency Comment Spec In Lab Yonathan Smith MD CHEMISTRY ORDERABLES Performing Organization Address City/[facility] Phon e Number [address] POCT Glucose (08/13/2017 4:29 AM EST) athologist Signature POC Glucose 111 65 - 199 [place] [facility] mg/dL [facility] Comment: Supplemental ranges: <140 mg/dL before meals <180 mg/dL all other times of the day Specimen Anatomical Collection Method Collection Time Receive d Time (Source) Location / / Volume Laterality Blood specimen 08/13/2017 4:29 AM 018 4:29 (specimen) EST AM EST Yonathan Smith MD POINT OF CARE TEST ORDERABLE S Performing Organization Address [facility] Phon e Number [address] POCT Glucose (08/12/2017 11:28 PM EST) athologist Signature POC Glucose 164 65 - 199 [place] [facility] mg/dL [facility] Comment: Supplemental ranges: <140 mg/dL before meals <180 mg/dL all other times of the day Specimen Anatomical Collection Method Collection Time Receive d Time (Source) Location / / Volume Laterality Blood specimen 08/12/2017 11:28 8 (specimen) PM EST 11:28 PM EST Yonathan Smith MD POINT OF CARE TEST ORDERABLE S Performing Organization Address City/[facility]/ZIP [facility] Phon e Number [address] (ABNORMAL) POCT Glucose (08/12/2017 7:40 PM EST) athologist Signature POC Glucose 209 (H) 65 - [address] [facility] mg/dL [facility] Comment: Supplemental ranges: <140 mg/dL before meals <180 mg/dL all other times of the day Specimen Anatomical Collection Method Collection Time Receive d Time (Source) Location / / Volume Laterality Blood specimen 08/12/2017 7:40 PM 018 7:40 (specimen) EST PM EST Yonathan Smith MD POINT OF CARE TEST ORDERABLE S Performing Organization Address City/State/ZIP Code Phon e Number [address] POCT Glucose (08/12/2017 4:24 PM EST) athologist Signature POC Glucose 161 65 - 199 [place] mg/dL [facility] Comment: Supplemental ranges: <140 mg/dL before meals <180 mg/dL all other times of the day Specimen Anatomical Collection Method Collection Time Receive d Time (Source) Location / / Volume Laterality Blood specimen 08/12/2017 4:24 PM 018 4:24 (specimen) EST PM EST Yonathan Smith MD POINT OF CARE TEST ORDERABLE S Performing Organization Address City/State/ZIP Code Phon e Number [address] POCT Glucose (08/12/2017 12:00 PM EST) athologist Signature POC Glucose 167 65 - 199 [place] [facility] mg/dL [facility] Comment: Supplemental ranges: <140 mg/dL before meals <180 mg/dL all other times of the day Specimen Anatomical Collection Method Collection Time Receive d Time (Source) Location / / Volume Laterality Blood specimen 08/12/2017 12:00 8 (specimen) PM EST 12:00 PM EST Yonathan Smith MD POINT OF CARE TEST ORDERABLE S Performing Organization Address City/State/[place] [address] POCT Glucose (08/12/2017 7:25 AM EST) athologist Signature POC Glucose 152 65 - 199 [place] [facility] mg/dL [facility] Comment: Supplemental ranges: <140 mg/dL before meals <180 mg/dL all other times of the day Specimen Anatomical Collection Method Collection Time Receive d Time (Source) Location / / Volume Laterality Blood specimen 08/12/2017 7:25 AM 018 7:25 (specimen) EST AM EST Yonathan Smith MD POINT OF CARE TEST ORDERABLE S Performing Organization Address City/State/[place] [address] [facility] LABORATORY Drive (ABNORMAL) Differential, Automated (08/12/2017 6:29 AM EST) [facility] Method Time Signature Neutrophils % 78.7 % [facility] Neutr Abs (ANC) 7.94 (H) 1.70 - [facility] 6.10 [facility] x10(3)/[facility] LABORATORY Lymphocytes % 8.8 % [facility] Lymphocytes Abs 0.9 0.9 - 3.2 [facility] x10(3)/[facility] LABORATORY Monocytes % 7.8 % [facility] Monocyte Abs 0.8 0.3 - 0.9 [facility] x10(3)/[facility] LABORATORY Eosinophils % 3.9 % [facility] Eosinophils Abs 0.4 0.0 - 0.4 [facility] x10(3)/[facility] LABORATORY Basophils % 0.3 % [facility] Basophils Abs 0.0 0.0 - 0.1 [facility] x10(3)/[facility] LABORATORY Immature Gran % 0.50 % [facility] Comment: Immature granulocytes(IG's)percentage an d absolute count will include metamyelocytes, myelocytes, and promyelo cytes. Blood smears from CBCs yielding IG's will be scanned manually for concor dance. If this scan disagrees with the automated IG or if promyelocytes are not ed, a manual differential will be performed. Melisa Gran Abs 0.05 (H) 0.00 - 0.04 x10(3)/[facility] LABORATORY Specimen Anatomical Collection Method Collection Time Receive d Time (Source) Location / / Volume Laterality Blood specimen 08/12/2017 6:29 AM 018 6:38 (specimen) EST AM EST Resulting Agency Comment Spec In Lab Yonathan Smith MD HEMATOLOGY ORDERABLES Performing Organization Address City/State/[place] [address] (ABNORMAL) Hemogram (08/12/2017 6:29 AM EST) Analysis Performed At Patho logist Time Signature WBC 10.1 (H) 4.0 - 9.5 [facility] x10(3)/[facility] LABORATORY RBC 3.02 (L) 4.58 - [place] 5.54 [facility] x10(6)/[facility] LABORATORY Hemoglobin 8.7 (L) 13.7 - [facility] 16.5 gm/dL [facility] Hematocrit 28.1 (L) 40.5 - [facility] 48.5 % [facility] MCV 93.0 82.9 - [facility] 93.1 [facility] LABORATORY MCH 28.8 27.5 - [facility] pg [facility] MCHC 31.0 (L) 32.0 - [facility] gm/dL [facility] Platelets 223 145 - 357 [facility] x10(3)/[facility] LABORATORY RDWSD 56.1 (H) 36.0 - [facility] 45.0 [facility] LABORATORY RDWCV 16.4 (H) 11.4 - [facility] 13.8 % [facility] MPV 9.0 7.6 - 12.9 [facility] LABORATORY nRBC % Auto 0.0 % [facility] nRBC Abs Auto 0.000 0.000 - [facility] 0.000 [facility] x10(3)/[facility] LABORATORY Specimen Anatomical Collection Method Collection Time Receive d Time (Source) Location / / Volume Laterality Blood specimen 08/12/2017 6:29 AM 018 6:38 (specimen) EST AM EST Resulting Agency Comment Spec In Lab Yonathan Smith MD HEMATOLOGY ORDERABLES Performing Organization Address City/State/ZIP Code Phon e Number [address] (ABNORMAL) Prothrombin Time (08/12/2017 6:29 AM EST) P athologist Signature PT 16.1 (H) 11.8 - 14.0 [facility] LABORATORY INR 1.3 (H) 0.9 - 1.1 [facility] Comment: An INR <2.0 indicates [...] Organization Address City/State/[place] [address] (ABNORMAL) Basic Metabolic Panel (non-fasting) (08/12/2017 6:29 AM EST) P athologist Signature Glucose Lvl 151 65 - 199 [facility] mg/dL [facility] Comment: Diabetes: >=200 mg/dL plus symp toms BUN 18 10 - 20 mg/dL [facility] Creatinine 1.11 0.80 - 1.50 mg/dL [facility] [...] estions. Chloride 99 98 - 107 mmol/L [facility] CO2 28 22 - 31 mmol/L [facility] Anion Gap 11 5 - 15 mmol/L [facility] Calcium 7.9 (L) 8.5 - 10.5 mg/dL [facility]ORY Estimated GFR >60 >=60 [facility] Comment: The reported eGFR should be multiplied b y 1.2 for patients. The MDRD is not an appropriate measure o f renal function for patients with body mass extremes or in patients with acute kidney failure. http://Drug Response Dx/DHnkdep http://Drug Response Dx/DHMCnkf Specimen Anatomical Collection Method Collection Time Receive d Time (Source) Location / / Volume Laterality Blood specimen 08/12/2017 6:29 AM 018 6:38 (specimen) EST AM EST Resulting Agency Comment Spec In Lab Yonathan Smith MD CHEMISTRY ORDERABLES Performing Organization Address City/[facility]/ZIP Code Phon e Number [address] POCT Glucose (08/12/2017 4:08 AM EST) athologist Signature POC Glucose 181 65 - 199 [facility] mg/dL [facility] Comment: Supplemental ranges: <140 mg/dL before meals <180 mg/dL all other times of the day Specimen Anatomical Collection Method Collection Time Receive d Time (Source) Location / / Volume Laterality Blood specimen 08/12/2017 4:08 AM 018 4:08 (specimen) EST AM EST Yonathan Smith MD POINT OF CARE TEST ORDERABLE S Performing Organization Address City/[facility]/[place] [address] (ABNORMAL) POCT Glucose (08/12/2017 12:17 AM EST) athologist Signature POC Glucose 221 (H) 65 - 199 [facility] mg[facility]dL [facility] Comment: Supplemental ranges: <140 mg/dL before meals <180 mg/dL all other times of the day Specimen Anatomical Collection Method Collection Time Receive d Time (Source) Location / / Volume Laterality Blood specimen 08/12/2017 12:17 8 (specimen) AM EST 12:17 AM EST Yonathan Smith MD POINT OF CARE TEST ORDERABLE S Performing Organization Address City/[facility]/[place] [address] (ABNORMAL) POCT Glucose (08/11/2017 8:52 PM EST) athologist Signature POC Glucose 221 (H) 65 - 199 [facility] mg/dL [facility] Comment: Supplemental ranges: <140 mg/dL before meals <180 mg/dL all other times of the day Specimen Anatomical Collection Method Collection Time Receive d Time (Source) Location / / Volume Laterality Blood specimen 08/11/2017 8:52 PM 018 8:52 (specimen) EST PM EST Yonathan Smith MD POINT OF CARE TEST ORDERABLE S Performing Organization Address City/State/[place] [address] POCT Glucose (08/11/2017 5:59 PM EST) athologist Signature POC Glucose 169 65 - 199 [facility] mg/dL [facility] Comment: Supplemental ranges: <140 mg/dL before meals <180 mg/dL all other times of the day Specimen Anatomical Collection Method Collection Time Receive d Time (Source) Location / / Volume Laterality Blood specimen 08/11/2017 5:59 PM 018 5:59 (specimen) EST PM EST Yonathan Smith MD POINT OF CARE TEST ORDERABLE S Performing Organization Address City/[facility]/[place] [address] (ABNORMAL) POCT Glucose (08/11/2017 4:08 PM EST) athologist Signature POC Glucose 240 (H) 65 - 199 [facility] mg/dL [facility] Comment: Supplemental ranges: <140 mg/dL before meals <180 mg/dL all other times of the day Specimen Anatomical Collection Method Collection Time Receive d Time (Source) Location / / Volume Laterality Blood specimen 08/11/2017 4:08 PM 018 4:08 (specimen) EST PM EST Yonathan Smith MD POINT OF CARE TEST ORDERABLE S Performing Organization Address City/State/[place] [address] POCT Glucose (08/11/2017 12:04 PM EST) athologist Signature POC Glucose 182 65 - 199 [facility] mg/dL [facility] Comment: Supplemental ranges: <140 mg/dL before meals <180 mg/dL all other times of the day Specimen Anatomical Collection Method Collection Time Receive d Time (Source) Location / / Volume Laterality Blood specimen 08/11/2017 12:04 8 (specimen) PM EST 12:04 PM EST Yonathan Smith MD POINT OF CARE TEST ORDERABLE S Performing Organization Address City/State/ZIP Code Phon e Number [address] POCT Glucose (08/11/2017 7:31 AM EST) athologist Signature POC Glucose 156 65 - 199 [facility] mg/dL [facility] Comment: Supplemental ranges: <140 mg/dL before meals <180 mg/dL all other times of the day Specimen Anatomical Collection Method Collection Time Receive d Time (Source) Location / / Volume Laterality Blood specimen 08/11/2017 7:31 AM 018 7:31 (specimen) EST AM EST Yonathan Smith MD POINT OF CARE TEST ORDERABLE S Performing Organization Address City/State/ZIP Code Phon e Number [address] (ABNORMAL) Differential, Automated (08/11/2017 6:16 AM EST) [facility] gist Method Time Signature Neutrophils % 83.7 % [facility] Neutr Abs (ANC) 10.76 (H) 1.70 - [facility] 6.10 [facility] x10(3)/[facility] L LABORATORY Lymphocytes % 6.0 % [facility] Lymphocytes Abs 0.8 (L) 0.9 - 3.2 [facility] x10(3)/[facility] LABORATORY Monocytes % 7.5 % [facility] Monocyte Abs 1.0 (H) 0.3 - 0.9 [facility] x10(3)/[facility] LABORATORY Eosinophils % 2.0 % [facility] Eosinophils Abs 0.3 0.0 - 0.4 [facility] x10(3)/[facility] LABORATORY Basophils % 0.3 % [facility] Basophils Abs 0.0 0.0 - 0.1 [facility] x10(3)/[facility] LABORATORY Immature Gran % 0.50 % [facility] Comment: Immature granulocytes(IG's)percentage an d absolute count will include metamyelocytes, myelocytes, and promyelo cytes. Blood smears from CBCs yielding IG's will be scanned manually for concor dance. If this scan disagrees with the automated IG or if promyelocytes are not ed, a manual differential will be performed. Melisa Gran Abs 0.06 (H) 0.00 - 0.04 x10(3)/[facility] LABORATORY Specimen Anatomical Collection Method Collection Time Receive d Time (Source) Location / / Volume Laterality Blood specimen 08/11/2017 6:16 AM 018 6:24 (specimen) EST AM EST Resulting Agency Comment Spec In Lab Yonathan Smith MD HEMATOLOGY ORDERABLES Performing Organization Address City/State/ZIP Code Phon e Number [place] [id number] (ABNORMAL) Hemogram (08/11/2017 6:16 AM EST) Analysis Performed At Patho logist Time Signature WBC 12.9 (H) 4.0 - 9.5 [facility] x10(3)/[facility] LABORATORY RBC 3.28 (L) 4.58 - [facility] 5.54 [facility] x10(6)/[facility] LABORATORY Hemoglobin 9.5 (L) 13.7 - [facility] 16.5 gm/dL [facility] Hematocrit 29.8 (L) 40.5 - [facility] 48.5 % [facility]ORY MCV 90.9 82.9 - [facility] 93.1 fL [facility] MCH 29.0 27.5 - [facility] 32.1 pg [facility] MCHC 31.9 (L) 32.0 - [facility] 35.7 gm/dL [facility] Platelets 236 145 - 357 [facility] x10(3)/[facility] LABORATORY RDWSD 53.5 (H) 36.0 - [facility] 45.0 [facility] LABORATORY RDWCV 16.3 (H) 11.4 - [facility] 13.8 % [facility] LABORATORY MPV 8.8 7.6 - 12.9 [facility] LABORATORY nRBC % Auto 0.0 % [facility] nRBC Abs Auto 0.000 0.000 - [place] [facility] 0.000 [facility] x10(3)/[facility] LABORATORY Specimen Anatomical Collection Method Collection Time Receive d Time (Source) Location / / Volume Laterality Blood specimen 08/11/2017 6:16 AM 018 6:24 (specimen) EST AM EST Resulting Agency Comment Spec In Lab Yonathan Smith MD HEMATOLOGY ORDERABLES Performing Organization Address City/[facility] [place] [address] (ABNORMAL) Prothrombin Time (08/11/2017 6:16 AM EST) P athologist Signature PT 15.5 (H) 11.8 - 14.0 [facility] LABORATORY INR 1.3 (H) 0.9 - 1.1 [facility] Comment: An INR <2.0 indicates [...] Smith MD HEMATOLOGY ORDERABLES Performing Organization Address City/[facility] [place] [address] Basic Metabolic Panel (non-fasting) (08/11/2017 6:16 AM EST) P athologist Signature Glucose Lvl 139 65 - 199 [facility] mg/dL [facility] Comment: Diabetes: >=200 mg/dL plus symp toms BUN 12 10 - 20 mg/dL [facility] LABORATORY Creatinine 0.91 0.80 - 1.50 mg/dL [facility] [...] - 107 mmol/L [facility] CO2 27 22 - 31 mmol/L [facility] Anion Gap 13 5 - 15 mmol/L [facility]ORY Calcium 8.5 8.5 - 10.5 mg/dL [facility] LABORATORY Estimated GFR >60 >=60 [facility] Comment: The reported eGFR should be multiplied b y 1.2 for patients. The MDRD is not an appropriate measure o f renal function for patients with body mass extremes or in patients with acute kidney failure. http://Drug Response Dx/DHnkdep http://Drug Response Dx/DHMCnkf Specimen Anatomical Collection Method Collection Time Receive d Time (Source) Location / / Volume Laterality Blood specimen 08/11/2017 6:16 AM 018 6:24 (specimen) EST AM EST Resulting Agency Comment Spec In Lab Yonathan Smith MD CHEMISTRY ORDERABLES Performing Organization Address City/State/[place] [address] POCT Glucose (08/11/2017 4:07 AM EST) athologist Signature POC Glucose 162 65 - 199 [facility] mg/dL [facility] Comment: Supplemental ranges: <140 mg/dL before meals <180 mg/dL all other times of the day Specimen Anatomical Collection Method Collection Time Receive d Time (Source) Location / / Volume Laterality Blood specimen 08/11/2017 4:07 AM 018 4:07 (specimen) EST AM EST Yonathan Smith MD POINT OF CARE TEST ORDERABLE S Performing Organization Address City/State/[place] [address] POCT Glucose (08/10/2017 11:59 PM EST) athologist Signature POC Glucose 166 65 - 199 [place] [facility] mg/dL [facility] Comment: Supplemental ranges: <140 mg/dL before meals <180 mg/dL all other times of the day Specimen Anatomical Collection Method Collection Time Receive d Time (Source) Location / / Volume Laterality Blood specimen 08/10/2017 11:59 8 (specimen) PM EST 11:59 PM EST Yonathan Smith MD POINT OF CARE TEST ORDERABLE S Performing Organization Address City/[facility]/[place] [address] POCT Glucose (08/10/2017 8:12 PM EST) athologist Signature POC Glucose 156 65 - 199 [place] [facility] mg/dL [facility] Comment: Supplemental ranges: <140 mg/dL before meals <180 mg/dL all other times of the day Specimen Anatomical Collection Method Collection Time Receive d Time (Source) Location / / Volume Laterality Blood specimen 08/10/2017 8:12 PM 018 8:12 (specimen) EST PM EST Yonathan Smith MD POINT OF CARE TEST ORDERABLE S Performing Organization Address City/State/[place] [address] (ABNORMAL) POCT Glucose (08/10/2017 4:42 PM EST) athologist Signature POC Glucose 211 (H) 65 - 199 [place] [facility] mg/dL [facility] Comment: Supplemental ranges: <140 mg/dL before meals <180 mg/dL all other times of the day Specimen Anatomical Collection Method Collection Time Receive d Time (Source) Location / / Volume Laterality Blood specimen 08/10/2017 4:42 PM 018 4:42 (specimen) EST PM EST Yonathan Smith MD POINT OF CARE TEST ORDERABLE S Performing Organization Address City/State/[place] [address] (ABNORMAL) Differential, Automated (08/10/2017 2:30 PM EST) [facility] gist Method Time Signature Neutrophils % 87.6 % [facility] Neutr Abs (ANC) 9.90 (H) 1.70 - [facility] 6.10 [facility] x10(3)/[facility] LABORATORY Lymphocytes % 4.3 % [facility] Lymphocytes Abs 0.5 (L) 0.9 - 3.2 [facility] x10(3)/[facility] LABORATORY Monocytes % 6.0 % [facility] Monocyte Abs 0.7 0.3 - 0.9 [facility] x10(3)/[facility] LABORATORY Eosinophils % 1.1 % [facility] Eosinophils Abs 0.1 0.0 - 0.4 [facility] x10(3)/[facility] LABORATORY Basophils % 0.4 % [facility] Basophils Abs 0.0 0.0 - 0.1 [facility] x10(3)/[facility] LABORATORY Immature Gran % 0.60 % [facility] Comment: Immature granulocytes(IG's)percentage an d absolute count will include metamyelocytes, myelocytes, and promyelo cytes. Blood smears from CBCs yielding IG's will be scanned manually for concor dance. If this scan disagrees with the automated IG or if promyelocytes are not ed, a manual differential will be performed. Melisa Gran Abs 0.07 (H) 0.00 - 0.04 x10(3)/[facility] LABORATORY Specimen Anatomical Collection Method Collection Time Receive d Time (Source) Location / / Volume Laterality Blood specimen 08/10/2017 2:30 PM 018 2:48 (specimen) EST PM EST Resulting Agency Comment Spec In Lab Yonathan Smith MD HEMATOLOGY ORDERABLES Performing Organization Address City/State/[place] [address] (ABNORMAL) Hemogram (08/10/2017 2:30 PM EST) Analysis Performed At Patho logist Time Signature WBC 11.3 (H) 4.0 - 9.5 [facility] x10(3)/[facility] LABORATORY RBC 3.13 (L) 4.58 - [place] [facility] 5.54 [facility] x10(6)/[facility] LABORATORY Hemoglobin 8.9 (L) 13.7 - [facility] 16.5 gm/dL [facility] Hematocrit 28.4 (L) 40.5 - [facility] 48.5 % [facility] MCV 90.7 82.9 - [facility] 93.1 [facility] LABORATORY MCH 28.4 27.5 - [place] [facility] 32.1 pg [facility] LABORATORY MCHC 31.3 (L) 32.0 - [place] [facility] 35.7 gm/dL [facility] Platelets 213 145 - 357 [facility] x10(3)/[facility] LABORATORY RDWSD 53.7 (H) 36.0 - [facility] 45.0 [facility] LABORATORY RDWCV 16.4 (H) 11.4 - [facility] 13.8 % [facility] LABORATORY MPV 8.9 7.6 - 12.9 [facility] LABORATORY nRBC % Auto 0.0 % [facility] LAB[facility] nRBC Abs Auto 0.000 0.000 - [facility] 0.000 [facility] x10(3)/[facility] LABORATORY Specimen Anatomical Collection Method Collection Time Receive d Time (Source) Location / / Volume Laterality Blood specimen 08/10/2017 2:30 PM 018 2:48 (specimen) EST PM EST Resulting Agency Comment Spec In Lab Yonathan Smith MD HEMATOLOGY ORDERABLES Performing Organization Address City/[facility]/[place] [address] (ABNORMAL) POCT Glucose (08/10/2017 1:50 PM EST) athologist Signature POC Glucose 243 (H) 65 - 199 [facility]dL [facility] Comment: Supplemental ranges: <140 mg/dL before meals <180 mg/dL all other times of the day Specimen Anatomical Collection Method Collection Time Receive d Time (Source) Location / / Volume Laterality Blood specimen 08/10/2017 1:50 PM 018 1:50 (specimen) EST PM EST Yonathan Smith MD POINT OF CARE TEST ORDERABLE S Performing Organization Address City/State/ZIP Code Phon e Number [address] POCT Glucose (08/10/2017 11:21 AM EST) athologist [facility] POC Glucose 156 65 - 199 [facility] mg/dL [facility] Comment: Supplemental ranges: <140 mg/dL before meals <180 mg/dL all other times of the day Specimen Anatomical Collection Method Collection Time Receive d Time (Source) Location / / Volume Laterality Blood specimen 08/10/2017 11:21 8 (specimen) AM EST 11:21 AM EST Yonathan Smith MD POINT OF CARE TEST ORDERABLE S Performing Organization Address City/State/ZIP Code Phon e Number [address] (ABNORMAL) Differential, Automated (08/10/2017 10:28 AM EST) [facility] gist Method Time Signature Neutrophils % 85.3 % [facility] LABORATORY Neutr Abs (ANC) 9.43 (H) 1.70 - [facility] 6.10 [facility] x10(3)/[facility] L LABORATORY Lymphocytes % 5.5 % [facility] LABORATORY Lymphocytes Abs 0.6 (L) 0.9 - 3.2 [facility] x10(3)/[facility] LABORATORY Monocytes % 5.9 % [facility]ORATORY Monocyte Abs 0.6 0.3 - 0.9 [facility] x10(3)/[facility] LABORATORY Eosinophils % 2.1 % [facility]ORATORY Eosinophils Abs 0.2 0.0 - 0.4 [facility] x10(3)/[facility] LABORATORY Basophils % 0.4 % [facility]OR[facility] Basophils Abs 0.0 0.0 - 0.1 [facility] x10(3)/[facility] LABORATORY Immature Gran % 0.80 % [facility]ORY Comment: Immature granulocytes(IG's)percentage an d absolute count will include metamyelocytes, myelocytes, and promyelo cytes. Blood smears from CBCs yielding IG's will be scanned manually for concor dance. If this scan disagrees with the automated IG or if promyelocytes are not ed, a manual differential will be performed. Melisa Gran Abs 0.09 (H) 0.00 - 0.04 x10(3)/[facility] LABORATORY Specimen Anatomical Collection Method Collection Time Receive d Time (Source) Location / / Volume Laterality Blood specimen 08/10/2017 10:28 8 (specimen) AM EST 10:35 AM EST Resulting Agency Comment Spec In Lab Yonathan Smith MD HEMATOLOGY ORDERABLES Performing Organization Address City/State/ZIP Code Phon e Number [place] [id number] (ABNORMAL) Hemogram (08/10/2017 10:28 AM EST) Analysis Performed At Patho logist Time Signature WBC 11.0 (H) 4.0 - 9.5 [facility] x10(3)/[facility] LABORATORY RBC 3.02 (L) 4.58 - [facility] 5.54 [facility] x10(6)/[facility] LABORATORY Hemoglobin 8.8 (L) 13.7 - [facility] 16.5 gm/dL [facility] LABORATORY Hematocrit 28.1 (L) 40.5 - [facility] 48.5 % [facility] LAB[facility]ATORY MCV 93.0 82.9 - [facility] 93.1 fL [facility] MCH 29.1 27.5 - [facility] 32.1 pg [facility]AT[facility] MCHC 31.3 (L) 32.0 - [facility] 35.7 gm/dL [facility] Platelets 207 145 - 357 [facility] x10(3)/[facility] LABORATORY RDWSD 55.3 (H) 36.0 - [place] [facility] 45.0 [facility] RDWCV 16.4 (H) 11.4 - [place] 13.8 % [facility] MPV 9.0 7.6 - 12.9 [facility] nRBC % Auto 0.0 % [facility] nRBC Abs Auto 0.000 0.000 - [place] [facility] 0.000 [facility] x10(3)/[facility] LABORATORY Specimen Anatomical Collection Method Collection Time Receive d Time (Source) Location / / Volume Laterality Blood specimen 08/10/2017 10:28 8 (specimen) AM EST 10:35 AM EST Resulting Agency Comment Spec In Lab Yonathan Smith MD HEMATOLOGY ORDERABLES Performing Organization Address City/State/[place] [address] VS Angiogram/intervention (vascular) (08/10/2017 [...] 2.5x80 5. Completion RLE angiogram 6. L GAS [employer]TER HELPER angiogram 7. 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 - L [employer]PER angriogram demonstrated: High fe moral bifurcation over the proximal half of the femoral head. L G[employer]TER HELPER access in the distal L GAS FITTER HELPER. - Closure device: Mynx Technical Procedure: ?The [...] for a 45cm 5F Destination. V18 and Herrin a nd QuickCross catheters were used to [...] bifurcation. Access appeared in the distal R GAS FITTER HELPER. Closure and sheath removal was performed with [...] 2.5x80 5. Completion RLE angiogram 6. L GAS [employer]TER HELPER angiogram 7. 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 - L [employer] HELPER angriogram demonstrated: High fe moral bifurcation over the proximal half of the femoral head. L GAS [employer]TER HELPER access in the distal L GAS FITTER HELPER. - Closure device: Mynx Technical Procedure: The [...] for a 45cm 5F Destination. V18 and Herrin a nd QuickCross catheters were used to [...] bifurcation. Access appeared in the distal R G[employer]TER HELPER. Closure and sheath removal was performed with [...] (ABNORMAL) Differential, Automated (08/10/2017 5:50 AM EST) [facility] Method Time Signature Neutrophils % 80.1 % [facility] LABORATORY Neutr Abs (ANC) 9.01 (H) 1.70 - [facility] 6.10 [facility] x10(3)/[facility] LABORATORY Lymphocytes % 8.8 % [facility] LABORATORY Lymphocytes Abs 1.0 0.9 - 3.2 [facility] x10(3)/[facility] LABORATORY Monocytes % 8.3 % [facility] LABORATORY Monocyte Abs 0.9 0.3 - 0.9 [facility] x10(3)/[facility] LABORATORY Eosinophils % 2.0 % [facility]ORATORY Eosinophils Abs 0.2 0.0 - 0.4 [facility] x10(3)/[facility] LABORATORY Basophils % 0.4 % [facility]ORATORY Basophils Abs 0.0 0.0 - 0.1 [facility] x10(3)/[facility] LABORATORY Immature Gran % 0.40 % [facility]ORATORY Comment: Immature granulocytes(IG's)percentage an d absolute count will include metamyelocytes, myelocytes, and promyelo cytes. Blood smears from CBCs yielding IG's will be scanned manually for concor dance. If this scan disagrees with the automated IG or if promyelocytes are not ed, a manual differential will be performed. Melisa Gran Abs 0.05 (H) 0.00 - 0.04 x10(3)/[facility] LABORATORY Specimen Anatomical Collection Method Collection Time Receive d Time (Source) Location / / Volume Laterality Blood specimen 08/10/2017 5:50 AM 018 5:59 (specimen) EST AM EST Resulting Agency Comment Spec In Lab Yonathan Smith MD HEMATOLOGY ORDERABLES Performing Organization Address City/State/[place] [address] (ABNORMAL) Hemogram (08/10/2017 5:50 AM EST) Analysis Performed At Patho logist Time Signature WBC 11.3 (H) 4.0 - 9.5 [facility] x10(3)/[facility] LABORATORY RBC 3.15 (L) 4.58 - [facility] 5.54 [facility] x10(6)/[facility] LABORATORY Hemoglobin 8.9 (L) 13.7 - [facility] 16.5 gm/dL [facility] LABORATORY Hematocrit 29.0 (L) 40.5 - [facility] 48.5 % [facility] LABORATORY MCV 92.1 82.9 - [facility] 93.1 [facility] LABORATORY MCH 28.3 27.5 - [facility] 32.1 pg [facility] LABORATORY MCHC 30.7 (L) 32.0 - [facility] 35.7 gm/dL [facility] LABORATORY Platelets 231 145 - 357 [facility] x10(3)/[facility] LABORATORY RDWSD 53.9 (H) 36.0 - [facility] 45.0 [facility] LABORATORY RDWCV 16.2 (H) 11.4 - [facility] 13.8 % [facility] LABORATORY MPV 8.7 7.6 - 12.9 [facility] LABORATORY nRBC % Auto 0.0 % [facility] LABORATORY nRBC Abs Auto 0.000 0.000 - [place] [facility] 0.000 [facility] x10(3)/[facility] LABORATORY Specimen Anatomical Collection Method Collection Time Receive d Time (Source) Location / / Volume Laterality Blood specimen 08/10/2017 5:50 AM 018 5:59 (specimen) EST AM EST Resulting Agency Comment Spec In Lab Yonathan Smith MD HEMATOLOGY ORDERABLES Performing Organization Address City/[facility]/[place] [address] (ABNORMAL) Basic Metabolic Panel (non-fasting) (08/10/2017 5:50 AM EST) P athologist Signature Glucose Lvl 135 65 - 199 [facility] mg/dL [facility] LABORATORY Comment: Diabetes: >=200 mg/dL plus symp toms BUN 17 10 - 20 mg/dL [facility] LABORATORY Creatinine 1.05 0.80 - 1.50 mg/dL [facility] LABORATORY Sodium 144 135 - 145 [...] estions. Chloride 104 98 - 107 mmol/L [facility] LABORATORY CO2 27 22 - 31 mmol/L [facility] LABORATORY Anion Gap 13 5 - [...] or in patients with acute kidney failure. http://Accolo.NextFit/DHnkdep http://Accolo.NextFit/DHMCnkf Specimen Anatomical Collection Method Collection Time Receive d Time (Source) Location / / Volume Laterality Blood specimen 08/10/2017 5:50 AM 018 5:59 (specimen) EST AM EST Resulting Agency Comment Spec In Lab Yonathan Smith MD CHEMISTRY ORDERABLES Performing Organization Address City/State/[place] [address] (ABNORMAL) Prothrombin Time (08/10/2017 5:50 AM EST) athologist Signature PT 16.8 (H) 11.8 - 14.0 [facility] LABORATORY INR 1.4 (H) 0.9 - 1.1 [facility] LABORATORY Comment: An INR <2.0 indicates [...] Organization Address City/State/[place] [address] (ABNORMAL) POCT Glucose (08/10/2017 4:01 AM EST) athologist Signature POC Glucose 206 (H) 65 - 199 [facility] mg/dL [facility]OR[facility]ORY Comment: Supplemental ranges: <140 mg/dL before meals <180 mg/dL all other times of the day Specimen Anatomical Collection Method Collection Time Receive d Time (Source) Location / / Volume Laterality Blood specimen 08/10/2017 4:01 AM 018 4:01 (specimen) EST AM EST Yonathan Smith MD POINT OF CARE TEST ORDERABLE S Performing Organization Address City/State/[place] [address] POCT Glucose (08/10/2017 2:01 AM EST) athologist Signature POC Glucose 188 65 - 199 [facility] mg/dL [facility] LABORATORY Comment: Supplemental ranges: <140 mg/dL before meals <180 mg/dL all other times of the day Specimen Anatomical Collection Method Collection Time Receive d Time (Source) Location / / Volume Laterality Blood specimen 08/10/2017 2:01 AM 018 2:01 (specimen) EST AM EST Yonathan Smith MD POINT OF CARE TEST ORDERABLE S Performing Organization Address City/[facility]/[place] [address] (ABNORMAL) POCT Glucose (08/09/2017 11:42 PM EST) athologist Signature POC Glucose 283 (H) 65 - 199 [facility] mg/dL [facility] LABORATORY Comment: Supplemental ranges: <140 mg/dL before meals <180 mg/dL all other times of the day Specimen Anatomical Collection Method Collection Time Receive d Time (Source) Location / / Volume Laterality Blood specimen 08/09/2017 11:42 8 (specimen) PM EST 11:42 PM EST Yonathan Smith MD POINT OF CARE TEST ORDERABLE S Performing Organization Address City/[facility]/[place] [address] POCT Glucose (08/09/2017 8:55 PM EST) athologist Signature POC Glucose 182 65 - 199 [facility] mg/dL [facility] LABOR[facility]ORY Comment: Supplemental ranges: <140 mg/dL before meals <180 mg/dL all other times of the day Specimen Anatomical Collection Method Collection Time Receive d Time (Source) Location / / Volume Laterality Blood specimen 08/09/2017 8:55 PM 018 8:55 (specimen) EST PM EST Yonathan Smith MD POINT OF CARE TEST ORDERABLE S Performing Organization Address City/[facility]/[place] [address] (ABNORMAL) APTT (08/09/2017 6:42 PM EST) athologist Signature PTT 90 (H) 25 - 35 sec [facility] LABORATORY Comment: The recommended therapeutic range for fu ll dose, unfractionated heparin at [facility] is 80 ? 114 seconds. The use [...] Smith MD HEMATOLOGY ORDERABLES Performing Organization Address City/[facility]/ZIP Code Phon e Number [address] POCT Glucose (08/09/2017 4:41 PM EST) athologist Signature POC Glucose 195 65 - [address] [facility] mg/dL [facility] LABORATORY Comment: Supplemental ranges: <140 mg/dL before meals <180 mg/dL all other times of the day Specimen Anatomical Collection Method Collection Time Receive d Time (Source) Location / / Volume Laterality Blood specimen 08/09/2017 4:41 PM 018 4:41 (specimen) EST PM EST Yonathan Smith MD POINT OF CARE TEST ORDERABLE S Performing Organization Address City/[facility]/ZIP Code Phon e Number [address] POCT Glucose (08/09/2017 12:29 PM EST) athologist Signature POC Glucose 140 65 - 199 [place] mg/dL [facility] LABORATORY Comment: Supplemental ranges: <140 mg/dL before meals <180 mg/dL all other times of the day Specimen Anatomical Collection Method Collection Time Receive d Time (Source) Location / / Volume Laterality Blood specimen 08/09/2017 12:29 8 (specimen) PM EST 12:29 PM EST Yonathan Smith MD POINT OF CARE TEST ORDERABLE S Performing Organization Address City/[facility]/ZIP Code Phon e Number [address] POCT Glucose (08/09/2017 9:59 AM EST) athologist Signature POC Glucose 135 65 - 199 [place] mg/dL [facility] LABORATORY Comment: Supplemental ranges: <140 mg/dL before meals <180 mg/dL all other times of the day Specimen Anatomical Collection Method Collection Time Receive d Time (Source) Location / / Volume Laterality Blood specimen 08/09/2017 9:59 AM 018 9:59 (specimen) EST AM EST Yonathan Smith MD POINT OF CARE TEST ORDERABLE S Performing Organization Address [facility]/ZIP Code Phon e Number [address] Specimen to Pathology (08/09/2017 8:41 AM EST) Specimen Anatomical Collection Method Collection Time Receive d Time (Source) Location / / Volume Laterality AP Specimen 08/09/2017 8:41 AM 8 8:41 EST AM EST Narrative [facility] LABORAT ORY - 08/09/2017 8:41 AM EST Specimen requisition ordered. ??Separate Pathology report to follow Yonathan Smith MD PATHOLOGY/CYTOLOGY ORDERABLE S Performing Organization Address City/[facility]/[place] [address] Surgical Pathology Report (08/09/2017 8:40 AM EST) Component Value Ref Test Analysis Performed At [facility] Range Method Time Signature Surgical [id number] ? Location: [facility]; [facility]; A [facility] Report The signing pathologist has (i) examined the relevant preparation(s) for the [facility] specimen(s) and (ii) rendered or confirmed the diagnosis(es) . HOSPITAL LABORATORY . 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 ?Viable proximal resection margins. Electronically signed by: ??Henrique Saravia MD Verified: ??08/13/2017 ?Pathologist Performed at: ??-[facility] Dept. of Pathology, [place], [place] CLINICAL INFORMATION Specimen Submitted: A - [...] Organization Address City/State/[place] [address] Anaerobic Culture (08/09/2017 8:30 AM EST) [facility] Method Time Signature Anaerobic No anaerobic [facility] Culture organisms [facility] LABORATORY Specimen Anatomical Collection Method [...] Organization Address City/State/[place] [address] (ABNORMAL) Abscess/Wound Aspirate Culture (08/09/2017 8:30 AM EST) [facility] Method Time Signature Abscess/Wound Moderate mixed [place] Aspirate bacterial [place] Culture morphotypes [facility] normal LABORATORY cutaneous [place] (A) Gram Stain Rare White Blood Cells [place] Few Gram Positive Cocci in pairs [place] (A) [place] [facility] Organism Gram Positive [place] in pairs [place] () [facility] Specimen Anatomical [...] - GENERAL ORDER ROBSON Performing Organization Address City/[facility]/ZIP Code Phon e Number [address] POCT Glucose (08/09/2017 4:28 AM EST) P athologist Signature POC Glucose 128 65 - 199 [facility] mg/dL [facility] Comment: Supplemental ranges: <140 mg/dL before meals <180 mg/dL all other times of the day Specimen Anatomical Collection Method Collection Time Receive d Time (Source) Location / / Volume Laterality Blood specimen 08/09/2017 4:28 AM 018 4:28 (specimen) EST AM EST Yonathan Smith MD POINT OF CARE TEST ORDERABLE S Performing Organization Address City/[facility]/ZIP Code Phon e Number [address] ABORH Recheck Status (08/09/2017 1:10 AM EST) [facility] gist Method Time Signature ABORH Type Completed [facility] LABORATORY Specimen Anatomical Collection Method Collection Time Receive d Time (Source) Location / / Volume Laterality Blood specimen 08/09/2017 1:10 AM 01/15/2 018 1:35 (specimen) EST AM EST Resulting Agency Comment Spec In Lab Yonathan Smith MD BLOOD BANK ORDERABLES Performing Organization Address City/State/ZIP Code Phon e Number [address] Antibody screen (08/09/2017 1:10 AM EST) Patholo gist Method Time Signature Ab Screen Negative [facility] LABORATORY Expires at 08/12/2017 [facility] [id number] on: [facility] Specimen Anatomical Collection Method Collection Time Receive d Time (Source) Location / / Volume Laterality Blood specimen 08/09/2017 1:10 AM 018 1:35 (specimen) EST AM EST Resulting Agency Comment Spec In Lab Yonathan Smith MD BLOOD BANK ORDERABLES Performing Organization Address City/[facility]/[place] [address] ABO/Rh Typing (08/09/2017 1:10 AM EST) P athologist Signature ABORh Type O Pos [facility] Specimen Anatomical Collection Method Collection Time Receive d Time (Source) Location / / Volume Laterality Blood specimen 08/09/2017 1:10 AM 018 1:35 (specimen) EST AM EST Resulting Agency Comment Spec In Lab Yonathan Smith MD BLOOD BANK ORDERABLES Performing Organization Address City/[facility]/[place] [address] (ABNORMAL) APTT (08/09/2017 1:10 AM EST) P athologist Signature PTT 86 (H) 25 - 35 sec [facility] Comment: The recommended therapeutic range for fu ll dose, unfractionated heparin at [facility] is 80 ? 114 seconds. The use [...] Address City/State/ZIP [place] [address] (ABNORMAL) Differential, Automated (08/09/2017 1:10 AM EST) [facility] Method Time Signature Neutrophils % 76.2 % [facility] Neutr Abs (ANC) 8.59 (H) 1.70 - [facility] 6.10 [facility] x10(3)/[facility] LABORATORY Lymphocytes % 11.0 % [facility] Lymphocytes Abs 1.2 0.9 - 3.2 [facility] x10(3)/[facility] LABORATORY Monocytes % 8.4 % [facility] Monocyte Abs 1.0 (H) 0.3 - 0.9 [facility] x10(3)/[facility] LABORATORY Eosinophils % 3.5 % [facility] Eosinophils Abs 0.4 0.0 - 0.4 [facility] x10(3)/[facility] LABORATORY Basophils % 0.5 % [facility] Basophils Abs 0.1 0.0 - 0.1 [facility] x10(3)/[facility] LABORATORY Immature Gran % 0.40 % [facility] Comment: Immature granulocytes(IG's)percentage an d absolute count will include metamyelocytes, myelocytes, and promyelo cytes. Blood smears from CBCs yielding IG's will be scanned manually for concor dance. If this scan disagrees with the automated IG or if promyelocytes are not ed, a manual differential will be performed. Melisa Gran Abs 0.05 (H) 0.00 - 0.04 x10(3)/[facility] LABORATORY Specimen Anatomical Collection Method Collection Time Receive d Time (Source) Location / / Volume Laterality Blood specimen 08/09/2017 1:10 AM 018 1:19 (specimen) EST AM EST Resulting Agency Comment Spec In Lab Yonathan Smith MD HEMATOLOGY ORDERABLES Performing Organization Address City/State/[place] [address] (ABNORMAL) Hemogram (08/09/2017 1:10 AM EST) Analysis Performed At Patho logist Time Signature WBC 11.3 (H) 4.0 - 9.5 [facility] x10(3)/[facility] LABORATORY RBC 3.47 (L) 4.58 - [place] SU 5.54 [facility] x10(6)/[facility] LABORATORY Hemoglobin 10.0 (L) 13.7 - [facility] 16.5 gm/dL [facility] Hematocrit 31.9 (L) 40.5 - [facility] 48.5 % [facility] MCV 91.9 82.9 - [facility] 93.1 [facility] LABORATORY MCH 28.8 27.5 - [facility] 32.1 pg [facility] MCHC 31.3 (L) 32.0 - [facility] 35.7 gm/dL [facility] Platelets 234 145 - 357 [facility] x10(3)/[facility] LABORATORY RDWSD 54.0 (H) 36.0 - [facility] 45.0 [facility] LABORATORY RDWCV 16.2 (H) 11.4 - [facility] 13.8 % [facility] MPV 8.7 7.6 - 12.9 [facility] LABORATORY nRBC % Auto 0.0 % [facility] nRBC Abs Auto 0.000 0.000 - [facility] 0.000 [facility] x10(3)/[facility] LABORATORY Specimen Anatomical Collection Method Collection Time Receive d Time (Source) Location / / Volume Laterality Blood specimen 08/09/2017 1:10 AM 018 1:19 (specimen) EST AM EST Resulting Agency Comment Spec In Lab Yonathan Smith MD HEMATOLOGY ORDERABLES Performing Organization Address City/State/ZIP Code Phon e Number [place] [id number]OSPITAL LAB[address]ORY [address] (ABNORMAL) Prothrombin Time (08/09/2017 1:10 AM EST) P athologist Signature PT 16.0 (H) 11.8 - 14.0 [facility] LABORATORY INR 1.3 (H) 0.9 - 1.1 [facility] Comment: An INR <2.0 indicates [...] Organization Address City/State/[place] [address] (ABNORMAL) Basic Metabolic Panel (non-fasting) (08/09/2017 1:10 AM EST) athologist Signature Glucose Lvl 108 65 - 199 [facility] mg/dL [facility] Comment: Diabetes: >=200 mg/dL plus symp toms BUN 34 (H) 10 - 20 mg/dL [facility] Creatinine 1.54 (H) 0.80 - 1.50 mg/dL [place] [...] Chloride 96 (L) 98 - 107 mmol/L [facility] CO2 29 22 - 31 mmol/L [facility] Anion Gap 13 5 - 15 mmol/L [facility] Calcium 8.3 (L) 8.5 - 10.5 mg/dL [facility] Estimated GFR 45 (L) >=60 [facility] Comment: The reported eGFR should be multiplied b y 1.2 for patients. The MDRD is not an appropriate measure o f renal function for patients with body mass extremes or in patients with acute kidney failure. http://Drug [employer] Dx/DHnkdep http://Drug [employer] Dx/DHMCnkf Specimen Anatomical Collection Method Collection Time Receive d Time (Source) Location / / Volume Laterality Blood specimen 08/09/2017 1:10 AM 018 1:19 (specimen) EST AM EST Resulting Agency Comment Spec In Lab Yonathan Smith MD CHEMISTRY ORDERABLES Performing Organization Address City/[facility]/ZIP Code Phon e Number [address] POCT Glucose (08/09/2017 12:05 AM EST) athologist Signature POC Glucose 128 65 - 199 [facility] mg/dL [facility] Comment: Supplemental ranges: <140 mg/dL before meals <180 mg/dL all other times of the day Specimen Anatomical Collection Method Collection Time Receive d Time (Source) Location / / Volume Laterality Blood specimen 08/09/2017 12:05 8 (specimen) AM EST 12:05 AM EST Yonathan Smith MD POINT OF CARE TEST ORDERABLE S Performing Organization Address City/[facility]/[place] [address] (ABNORMAL) POCT Glucose (08/08/2017 7:36 PM EST) P athologist Signature POC Glucose 215 (H) 65 - 199 [facility] mg/dL [facility] Comment: Supplemental ranges: <140 mg/dL before meals <180 mg/dL all other times of the day Specimen Anatomical Collection Method Collection Time Receive d Time (Source) Location / / Volume Laterality Blood specimen 08/08/2017 7:36 PM 018 7:36 (specimen) EST PM EST Yonathan Smith MD POINT OF CARE TEST ORDERABLE S Performing Organization Address City/State/[place] [address] (ABNORMAL) POCT Glucose (08/08/2017 6:23 PM EST) athologist Signature POC Glucose 216 (H) 65 - 199 [facility] mg/dL [facility] Comment: Supplemental ranges: <140 mg/dL before meals <180 mg/dL all other times of the day Specimen Anatomical Collection Method Collection Time Receive d Time (Source) Location / / Volume Laterality Blood specimen 08/08/2017 6:23 PM 018 6:23 (specimen) EST PM EST Yonathan Smith MD POINT OF CARE TEST ORDERABLE S Performing Organization Address City/[facility]/ZIP Code [facility] [place] [address] (ABNORMAL) APTT (08/08/2017 6:00 PM EST) athologist Signature PTT 97 (H) 25 - 35 sec [facility] Comment: The recommended therapeutic range for fu ll dose, unfractionated heparin at [facility] is 80 ? 114 seconds. The use [...] Organization Address City/State/[place] [address] POCT Glucose (08/08/2017 4:42 PM EST) athologist Signature POC Glucose 78 65 - 199 [facility] mg/dL [facility] Comment: Supplemental ranges: <140 mg/dL before meals <180 mg/dL all other times of the day Specimen Anatomical Collection Method Collection Time Receive d Time (Source) Location / / Volume Laterality Blood specimen 08/08/2017 4:42 PM 018 4:42 (specimen) EST PM EST Yonathan Smith MD POINT OF CARE TEST ORDERABLE S Performing Organization Address City/State/ZIP Code Phon e Number [address] (ABNORMAL) POCT Glucose (08/08/2017 4:01 PM EST) athologist Signature POC Glucose 58 (L) 65 - 199 [facility] mg/dL [facility] Comment: Supplemental ranges: <140 mg/dL before meals <180 mg/dL all other times of the day Specimen Anatomical Collection Method Collection Time Receive d Time (Source) Location / / Volume Laterality Blood specimen 08/08/2017 4:01 PM 018 4:01 (specimen) EST PM EST Yonathan Smith MD POINT OF CARE TEST ORDERABLE S Performing Organization Address City/[facility]/[place] [address] POCT Glucose (08/08/2017 11:51 AM EST) athologist Signature POC Glucose 90 65 - 199 [facility] mg/dL [facility] Comment: Supplemental ranges: <140 mg/dL before meals <180 mg/dL all other times of the day Specimen Anatomical Collection Method Collection Time Receive d Time (Source) Location / / Volume Laterality Blood specimen 08/08/2017 11:51 8 (specimen) AM EST 11:51 AM EST Yonathan Smith MD POINT OF CARE TEST ORDERABLE S Performing Organization Address City/State/[place] [address] (ABNORMAL) APTT (08/08/2017 10:27 AM EST) athologist Signature PTT 64 (H) 25 - 35 sec [facility] Comment: The recommended therapeutic range for fu ll dose, unfractionated heparin at [facility] is 80 ? 114 seconds. The use [...] Organization Address City/State/[place] [address] POCT Glucose (08/08/2017 8:02 AM EST) athologist Signature POC Glucose 178 65 - 199 [facility] mg/dL [facility] Comment: Supplemental ranges: <140 mg/dL before meals <180 mg/dL all other times of the day Specimen Anatomical Collection Method Collection Time Receive d Time (Source) Location / / Volume Laterality Blood specimen 08/08/2017 8:02 AM 018 8:02 (specimen) EST AM EST Yonathan Smith MD POINT OF CARE TEST ORDERABLE S Performing Organization Address City/[facility]/[place] [address] (ABNORMAL) APTT (08/08/2017 4:51 AM EST) athologist Signature PTT >160 25 - 35 [facility] (Critical) sec [facility] Comment: Called by: HOWARD, Read back by: Melba Jaramillo, Date/Time:08/08/17 05:43. The recommended therapeutic range for fu ll dose, unfractionated heparin at [facility] is 80 ? 114 seconds. The use [...] Smith MD HEMATOLOGY ORDERABLES Performing Organization Address City/[facility]/[place] [address] (ABNORMAL) Differential, Automated (08/08/2017 4:51 AM EST) Patholo gist Method Time Signature Neutrophils % 77.9 % [facility] Neutr Abs (ANC) 8.17 (H) 1.70 - [facility] 6.10 [facility] x10(3)/[facility] LABORATORY Lymphocytes % 10.3 % [facility] Lymphocytes Abs 1.1 0.9 - 3.2 [facility] x10(3)/[facility] LABORATORY Monocytes % 7.0 % [facility] Monocyte Abs 0.7 0.3 - 0.9 [facility] x10(3)/[facility] LABORATORY Eosinophils % 3.6 % [facility] Eosinophils Abs 0.4 0.0 - 0.4 [facility] x10(3)/[facility] LABORATORY Basophils % 0.5 % [facility] Basophils Abs 0.0 0.0 - 0.1 [facility] x10(3)/[facility] LABORATORY Immature Gran % 0.70 % [facility] Comment: Immature granulocytes(IG's)percentage an d absolute count will include metamyelocytes, myelocytes, and promyelo cytes. Blood smears from CBCs yielding IG's will be scanned manually for concor dance. If this scan disagrees with the automated IG or if promyelocytes are not ed, a manual differential will be performed. Melisa Gran Abs 0.07 (H) 0.00 - 0.04 x10(3)/[facility] LABORATORY Specimen Anatomical Collection Method Collection Time Receive d Time (Source) Location / / Volume Laterality Blood specimen 08/08/2017 4:51 AM 018 5:14 (specimen) EST AM EST Resulting Agency Comment Spec In Lab Yonathan Smith MD HEMATOLOGY ORDERABLES Performing Organization Address City/State/[place] [address] (ABNORMAL) Hemogram (08/08/2017 4:51 AM EST) Analysis Performed At Patho logist Time Signature WBC 10.5 (H) 4.0 - 9.5 [facility] x10(3)/[facility] LABORATORY RBC 3.27 (L) 4.58 - [place] 5.54 [facility] x10(6)/[facility] LABORATORY Hemoglobin 9.3 (L) 13.7 - [facility] 16.5 gm/dL [facility] Hematocrit 30.3 (L) 40.5 - [facility] 48.5 % [facility] MCV 92.7 82.9 - [facility] 93.1 [facility] LABORATORY MCH 28.4 27.5 - [place] 32.1 pg [facility] MCHC 30.7 (L) 32.0 - [facility]m/dL [facility] Platelets 252 145 - 357 [facility] x10(3)/[facility] LABORATORY RDWSD 54.6 (H) 36.0 - [facility] 45.0 [facility] LABORATORY RDWCV 16.2 (H) 11.4 - [facility] 13.8 % [facility] MPV 9.1 7.6 - 12.9 [facility] LABORATORY nRBC % Auto 0.0 % [facility] nRBC Abs Auto 0.000 0.000 - [facility] x10(3)/[facility] LABORATORY Specimen Anatomical Collection Method Collection Time Receive d Time (Source) Location / / Volume Laterality Blood specimen 08/08/2017 4:51 AM 018 5:14 (specimen) EST AM EST Resulting Agency Comment Spec In Lab Yonathan Smith MD HEMATOLOGY ORDERABLES Performing Organization Address City/State/[place] [address] (ABNORMAL) Prothrombin Time (08/08/2017 4:51 AM EST) P athologist Signature PT 18.1 (H) 11.8 - 14.0 [facility] LABORATORY INR 1.5 (H) 0.9 - 1.1 [facility] Comment: An INR <2.0 indicates [...] Organization Address City/State/[place] [address] (ABNORMAL) Basic Metabolic Panel (non-fasting) (08/08/2017 4:51 AM EST) P athologist Signature Glucose Lvl 229 (H) 65 - 199 [facility] mg/dL [facility] Comment: Diabetes: >=200 mg/dL plus symp toms BUN 35 (H) 10 - 20 mg/dL [facility] Creatinine 1.57 (H) 0.80 - 1.50 mg/dL [facility] Sodium 136 135 - 145 [...] Chloride 94 (L) 98 - 107 mmol/L [facility] CO2 25 22 - 31 mmol/L [facility] Anion Gap 17 (H) 5 - 15 mmol/L [facility] Calcium 7.9 (L) 8.5 - 10.5 mg/dL [facility] Estimated GFR 44 (L) >=60 [facility] Comment: The reported eGFR should be multiplied b y 1.2 for patients. The MDRD is not an appropriate measure o f renal function for patients with body mass extremes or in patients with acute kidney failure. http://Accolo.NextFit/DHnkdep http://Accolo.NextFit/DHMCnkf Specimen Anatomical Collection Method Collection Time Receive d Time (Source) Location / / Volume Laterality Blood specimen 08/08/2017 4:51 AM 018 5:14 (specimen) EST AM EST Resulting Agency Comment Spec In Lab Yonathan Smith MD CHEMISTRY ORDERABLES Performing Organization Address City/State/ZIP Code Phon e Number [address] POCT Glucose (08/08/2017 4:20 AM EST) athologist Signature POC Glucose 193 65 - 199 [facility] mg/dL [facility] Comment: Supplemental ranges: <140 mg/dL before meals <180 mg/dL all other times of the day Specimen Anatomical Collection Method Collection Time Receive d Time (Source) Location / / Volume Laterality Blood specimen 08/08/2017 4:20 AM 018 4:20 (specimen) EST AM EST Yonathan Smith MD POINT OF CARE TEST ORDERABLE S Performing Organization Address City/[facility]/[place] [address] POCT Glucose (08/07/2017 11:11 PM EST) athologist Signature POC Glucose 124 65 - 199 [facility] mg/dL [facility] Comment: Supplemental ranges: <140 mg/dL before meals <180 mg/dL all other times of the day Specimen Anatomical Collection Method Collection Time Receive d Time (Source) Location / / Volume Laterality Blood specimen 08/07/2017 11:11 8 (specimen) PM EST 11:11 PM EST Yonathan Smith MD POINT OF CARE TEST ORDERABLE S Performing Organization Address City/[facility]/ZIP Code Phon e Number [address] (ABNORMAL) APTT (08/07/2017 10:18 PM EST) athologist Signature PTT 114 (H) 25 - 35 sec [facility] Comment: The recommended therapeutic range for fu ll dose, unfractionated heparin at [facility] is 80 ? 114 seconds. The use [...] Smith MD HEMATOLOGY ORDERABLES Performing Organization Address City/[facility] Phon e Number [address] POCT Glucose (08/07/2017 8:10 PM EST) athologist Signature POC Glucose 140 65 - 199 [facility] mg/dL [facility] Comment: Supplemental ranges: <140 mg/dL before meals <180 mg/dL all other times of the day Specimen Anatomical Collection Method Collection Time Receive d Time (Source) Location / / Volume Laterality Blood specimen 08/07/2017 8:10 PM 018 8:10 (specimen) EST PM EST Yonathan Smith MD POINT OF CARE TEST ORDERABLE S Performing Organization Address City/[facility] Code Phon e Number [address] POCT Glucose (08/07/2017 5:27 PM EST) athologist Signature POC Glucose 187 65 - 199 [facility] mg/dL [facility] Comment: Supplemental ranges: <140 mg/dL before meals <180 mg/dL all other times of the day Specimen Anatomical Collection Method Collection Time Receive d Time (Source) Location / / Volume Laterality Blood specimen 08/07/2017 5:27 PM 018 5:27 (specimen) EST PM EST Yonathan Smith MD POINT OF CARE TEST ORDERABLE S Performing Organization Address City/[facility]/ZIP Code Phon e Number [address] POCT Glucose (08/07/2017 3:29 PM EST) athologist Signature POC Glucose 86 65 - 199 [facility] mg/dL [facility] Comment: Supplemental ranges: <140 mg/dL before meals <180 mg/dL all other times of the day Specimen Anatomical Collection Method Collection Time Receive d Time (Source) Location / / Volume Laterality Blood specimen 08/07/2017 3:29 PM 018 3:29 (specimen) EST PM EST Yonathan Smith MD POINT OF CARE TEST ORDERABLE S Performing Organization Address City/[facility] [place] [address] (ABNORMAL) APTT (08/07/2017 2:50 PM EST) athologist Signature PTT 60 (H) 25 - 35 sec [facility] Comment: The recommended therapeutic range for fu ll dose, unfractionated heparin at [facility] is 80 ? 114 seconds. The use [...] Smith MD HEMATOLOGY ORDERABLES Performing Organization Address City/[facility]/ZIP [facility] [place] [address] (ABNORMAL) POCT Glucose (08/07/2017 2:23 PM EST) athologist Signature POC Glucose 55 (L) 65 - 199 [facility] mg/dL [facility] Comment: Supplemental ranges: <140 mg/dL before meals <180 mg/dL all other times of the day Specimen Anatomical Collection Method Collection Time Receive d Time (Source) Location / / Volume Laterality Blood specimen 08/07/2017 2:23 PM 018 2:23 (specimen) EST PM EST Yonathan Smith MD POINT OF CARE TEST ORDERABLE S Performing Organization Address City/[facility]/[place] [address] [facility] LAB[address] Drive POCT Glucose (08/07/2017 12:08 PM EST) P athologist Signature POC Glucose 77 65 - 199 [facility] mg/dL [facility] Comment: Supplemental ranges: <140 mg/dL before meals <180 mg/dL all other times of the day Specimen Anatomical Collection Method Collection Time Receive d Time (Source) Location / / Volume Laterality Blood specimen 08/07/2017 12:08 8 (specimen) PM EST 12:08 PM EST Yonathan Smith MD POINT OF CARE TEST ORDERABLE S Performing Organization Address City/State/ZIP Code Phon e Number [place] [id number] [facility] LAB[address]ORY Drive (ABNORMAL) Differential, Automated (08/07/2017 7:30 AM EST) Patholo gist Method Time Signature Neutrophils % 73.8 % [facility] LABOR[facility]ORY Neutr Abs (ANC) 7.17 (H) 1.70 - [facility] 6.10 [facility] x10(3)/[facility] LABORATORY Lymphocytes % 12.2 % [facility] Lymphocytes Abs 1.2 0.9 - 3.2 [facility] x10(3)/[facility] LABORATORY Monocytes % 9.0 % [facility] Monocyte Abs 0.9 0.3 - 0.9 [facility] x10(3)/[facility] LABORATORY Eosinophils % 3.9 % [facility] Eosinophils Abs 0.4 0.0 - 0.4 [facility] x10(3)/[facility] LABORATORY Basophils % 0.6 % [facility] Basophils Abs 0.1 0.0 - 0.1 [facility] x10(3)/[facility] LABORATORY Immature Gran % 0.50 % [facility] Comment: Immature granulocytes(IG's)percentage an d absolute count will include metamyelocytes, myelocytes, and promyelo cytes. Blood smears from CBCs yielding IG's will be scanned manually for concor dance. If this scan disagrees with the automated IG or if promyelocytes are not ed, a manual differential will be performed. Melisa Gran Abs 0.05 (H) 0.00 - 0.04 x10(3)/[facility] LABORATORY Specimen Anatomical Collection Method Collection Time Receive d Time (Source) Location / / Volume Laterality Blood specimen 08/07/2017 7:30 AM 018 7:45 (specimen) EST AM EST Resulting Agency Comment Spec In Lab Yonathan Smith MD HEMATOLOGY ORDERABLES Performing Organization Address City/State/[place] [address] (ABNORMAL) Hemogram (08/07/2017 7:30 AM EST) Analysis Performed At Patho logist Time Signature WBC 9.7 (H) 4.0 - 9.5 [facility] x10(3)/[facility] LABORATORY RBC 3.54 (L) 4.58 - [facility] 5.54 [facility] x10(6)/[facility] LABORATORY Hemoglobin 9.9 (L) 13.7 - [facility] 16.5 gm/dL [facility] LABORATORY Hematocrit 32.3 (L) 40.5 - [facility] 48.5 % [facility] LABORATORY MCV 91.2 82.9 - [facility]1 [facility] LABORATORY MCH 28.0 27.5 - [facility] 32.1 pg [facility] LABORATORY MCHC 30.7 (L) 32.0 - [facility] 35.7 gm/dL [facility] LABORATORY Platelets 312 145 - 357 [facility] x10(3)/[facility] LABORATORY RDWSD 53.2 (H) 36.0 - [facility] 45.0 [facility] LABORATORY RDWCV 16.0 (H) 11.4 - [facility] 13.8 % [facility] LABORATORY MPV 8.9 7.6 - 12.9 [facility] LABORATORY nRBC % Auto 0.0 % [facility] nRBC Abs Auto 0.000 0.000 [facility] 0.000 [facility] x10(3)/[facility] LABORATORY Specimen Anatomical Collection Method Collection Time Receive d Time (Source) Location / / Volume Laterality Blood specimen 08/07/2017 7:30 AM 018 7:45 (specimen) EST AM EST Resulting Agency Comment Spec In Lab Yonathan Smith MD HEMATOLOGY ORDERABLES Performing Organization Address City/State/[place] [address] (ABNORMAL) Basic Metabolic Panel (non-fasting) (08/07/2017 7:30 AM EST) athologist Signature Glucose Lvl 80 65 - 199 [facility] mg/dL [facility] LABORATORY Comment: Diabetes: >=200 mg/dL plus symp toms BUN 31 (H) 10 - 20 mg/dL [facility] LABORATORY Creatinine 1.22 0.80 - 1.50 mg/dL [facility] [...] estions. Chloride 99 98 - 107 mmol/L [facility] CO2 29 22 - 31 mmol/L [facility] Anion Gap 12 5 - 15 mmol/L [facility] LABORATORY Calcium 8.5 8.5 - 10.5 mg/dL [facility] LABORATORY Estimated GFR 59 (L) >=60 [facility] LABORATORY Comment: The reported eGFR should be multiplied b y 1.2 for patients. The MDRD is not an appropriate measure o f renal function for patients with body mass extremes or in patients with acute kidney failure. http://[employer]/DHnkdep http://[employer]/DHMCnkf Specimen Anatomical Collection Method Collection Time Receive d Time (Source) Location / / Volume Laterality Blood specimen 08/07/2017 7:30 AM 018 7:45 (specimen) EST AM EST Resulting Agency Comment Spec In Lab Yonathan Smith MD CHEMISTRY ORDERABLES Performing Organization Address City/[facility]/ZIP Code Phon e Number [address] POCT Glucose (08/07/2017 7:27 AM EST) athologist Signature POC Glucose 81 65 - 199 [facility] mg/dL [facility] LABORATORY Comment: Supplemental ranges: <140 mg/dL before meals <180 mg/dL all other times of the day Specimen Anatomical Collection Method Collection Time Receive d Time (Source) Location / / Volume Laterality Blood specimen 08/07/2017 7:27 AM 018 7:27 (specimen) EST AM EST Yonathan Smith MD POINT OF CARE TEST ORDERABLE S Performing Organization Address [facility] Phon e Number [address] APTT (08/07/2017 7:04 AM EST) athologist [facility] PTT 34 25 - 35 sec [facility] Comment: The recommended therapeutic range for fu ll dose, unfractionated heparin at [facility] is 80 ? 114 seconds. The use [...] Smith MD HEMATOLOGY ORDERABLES Performing Organization Address City/[facility]/ZIP [facility] [place] [address] (ABNORMAL) Prothrombin Time (08/07/2017 7:04 AM EST) athologist [facility] PT 17.3 (H) 11.8 - 14.0 [facility] LABORATORY INR 1.4 (H) 0.9 - 1.1 [facility] LABORATORY Comment: An INR <2.0 indicates [...] Smith MD HEMATOLOGY ORDERABLES Performing Organization Address City/[facility]/ZIP Code Phon e Number [address] POCT Glucose (08/07/2017 4:03 AM EST) athologist Signature POC Glucose 93 65 - 199 [facility] mg/dL [facility] LABORATORY Comment: Supplemental ranges: <140 mg/dL before meals <180 mg/dL all other times of the day Specimen Anatomical Collection Method Collection Time Receive d Time (Source) Location / / Volume Laterality Blood specimen 08/07/2017 4:03 AM 018 4:03 (specimen) EST AM EST Yonathan Smith MD POINT OF CARE TEST ORDERABLE S Performing Organization Address City/[facility]/ZIP Code Phon e Number [address] POCT Glucose (08/07/2017 12:04 AM EST) athologist Signature POC Glucose 107 65 - 199 [facility] mg/dL [facility] LABORATORY Comment: Supplemental ranges: <140 mg/dL before meals <180 mg/dL all other times of the day Specimen Anatomical Collection Method Collection Time Receive d Time (Source) Location / / Volume Laterality Blood specimen 08/07/2017 12:04 8 (specimen) AM EST 12:04 AM EST Yonathan Smith MD POINT OF CARE TEST ORDERABLE S Performing Organization Address City/[facility]/[place] [address] POCT Glucose (08/06/2017 7:56 PM EST) P athologist Signature POC Glucose 178 65 - 199 [facility] mg/dL [facility] LABORATORY Comment: Supplemental ranges: <140 mg/dL before meals <180 mg/dL all other times of the day Specimen Anatomical Collection Method Collection Time Receive d Time (Source) Location / / Volume Laterality Blood specimen 08/06/2017 7:56 PM 018 7:56 (specimen) EST PM EST Yonathan Smith MD POINT OF CARE TEST ORDERABLE S Performing Organization Address City/State/[place] [address] TcPO2 (08/06/2017 2:32 PM EST) Component Value Ref Test Analysis Performed At Patholo gist Range Method Time Signature VB Text Department: Vascular Surgery Lab VASCUBASE Report Patient: [id number] (GREGORY HOANG) CPT: 0269331 ICD10: I99.8 Referring Physician: YONATHAN SMITH ?? [...] disorder Ischemic foot Unspecified circulatory system disorder Chronic systolic heart [...] 4 HOURS PRN, 1 dose, Starting on 08/07/17 at 1501, Until Wed08/07/17 at 1601, Pain, [...] 2.5 mg, Oral, ONCE, 1 dose, On Ivis 08/12/17 at 1700, Routine warfarin (COUMADIN) tablet 2.5 [...] Henrique ureña RN)1158 (Given - Provider: Chiquis Mcgrath, VAMSI)1714 (Given - Provider: Chiquis Mcgrath RN) 0630 [...] RN)1756 (Stopped - Provider: Henrique Marks RN) 1715 (New Bag - Provider: Chiquis cho RN)1745 (Stopped - Provider: Chiquis Mcgrath RN) 2 g, Intravenous, EVERY 24 HOURS, First dose on Wed08/06/17 at 1700, Until Discontinued, Administer over 30 Minutes, Indication for (Active or Suspected): Skin/Skin Structure docusate sodium (COLACE) capsule 100 mg 0827 (Given - Provider: Chiquis Mcgrath RN)2012 (Given - Provider: Henrique Marks RN) 08 (Given - Provider: Chiquis Mcgrath RN)2022 (Given - Provider: Mira Truong, VAMSI) 0800 (Given - Provider: Dory Truong RN) 100 mg, Oral, 2 TIMES DAILY, First [...] muñoz RN)1230 (Given - Provider: Chiquis Mcgrath, VAMSI)1708 (Given - Provider: Chiquis Mcgrath RN) 0749 [...] Truong RN)0749 (Given - Provider: Dory Truong, VAMSI)1200 (Not Given - Provider: Dory Truong RN [...] Order parameters not met - Comment: BG 135)170 (Given - Provider: Chiquis Mcgrath RN)2024 (Not [...] Chiquis Mcgrath RN - Reason: Patient/family refused) 170 (Not Given - Provider: Chiquis Mcgrath RN [...] (G iven - Provider: Dory Truong RN) 2.5 mg, Oral, DAILY, First dose [...] Discontinued, Routine senna (SENOKOT) tablet 8.6 mg 08 (Given - Provider: Chiquis Mcgrath RN)2011 (Given - Provider: Henrique Marks RN) 807 (Given - Provider: Chiquis Mcgrath RN)2024 (Given - Provider: Mira Truong, RN) 0800 (Given - Provider: Dory Truong, VAMSI) 8.6 mg, Oral, 2 TIMES DAILY, First [...] Chiquis Mcgrath, VAMSI)1751 (Given - Provider: Chiquis Mcgrath RN) 0157 [...] OR 4mg for severe pain 7-10, Routine 2105 (Given - Provider: Henrique ureña RN - [...]
Routine documented in this encounter Care Teams Radioisotope Technologist Relationship Specialty Start Date End Date Lovely Vicente MD PCP - General 04/16/[address] [place] [address] documented as of this encounter
--- OUTSIDE RECORDS SUMMARY | 2022-02-18 08:16 | XMS_ITS | Encounter Summary ---
:1945 Author Organization [facility] [place] [address] Care Team Providers Name Role Phone Lovely Vicente MD Primary Care Provider Reason for Visit Auth/Cert Specialty Diagnoses / Procedures Referred By Contact Refer red To Contact Diagnoses Critical lower limb ischemia CELLULITIS RT FOOT Procedures EMERGENCY Referral ID Status Reason Start Date Expiration Date Visits Requ ested Visits Authorized [id number] 1 1 Encounter Details Date Type Department Care Team Description 08/11/2017 Surgery Main Operating Room Yonathan Smith (M SURG) DRESSING CHANGE Barbara Ocampo MD (FOR OTHER THAN IVAN) [facility] UNDER ANES. 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 Patient [...] Dorsalis Pedis (Ankle) Artery ?132 ? 0.94 ??Custer-Biphasic ? Posterior Tibial (Ankle) Artery ??154 ? 1.10 ??Custer-Biphasic ? Fourth Toe ? 67 ?0.48 ?? [...] foot. Discharge Conditions/Prognosis: Good Discharge to: [facility] Rehab Discharge Medications: Your Medications New Medications [...] For any problems or questions please call [phone] ZELDA Smith, wind turbine electrical engineer Nurse Clinician For issues on weeknights after 5pm and weekends please call [phone] and ask for the Vascular Fellow habitat conservation planner. General Instructions None Future Appointments and Orders Future Appointments Provider Department Dept Phone 08/26/2017 4:00 PM Aurelia Rivera PA [facility] [phone] 09/07/2017 3:00 PM LAB, THREE L Lab 3L [facility] [phone] 09/07/2017 4:00 PM Luz Prescott MD [facility]ocrinology [facility] [phone] 09/09/2017 8:00 AM Barbra Soares APRN [facility] [phone] Please bring a list of your current [...] For any problems or questions please call [phone] ZELDA Smith, wind turbine electrical engineer Nurse Clinician For issues on weeknights after 5pm and weekends please call [phone] and ask for the Vascular Fellow habitat conservation planner. documented in this encounter Medications at Time [...] of Care Management Discharge Note Patient Destination: [facility] ([facility]) [address] [place] [id number] Transportation: with (at bedside) Time of Discharge: by 12 noon Level of Care: swing Patient Aware: yes Family Notified: yes Md to call report to: Yissel Quintero LIFE TRAINER already called RN to call report to: [phone] Shirin Wolf Office of Care Management Pager [phone] Shirin Wagner RN - 08/16/2017 10:50 AM EST [facility] has offered pt swing bed. Pt and accept bed. will transport via car. LIFE TRAINER Yissel Quintero aware; d/c paperwork will be completed by 12 noon. [facility] requests pt arrival by 1400 today; LIFE TRAINER, RN, and family aware. LIFE TRAINER called [facility] and was told that they prefer pt to arrive with wound vac dressing applied but clamped. LIFE TRAINER applied new wound vac dressing. RN has [facility] number to call report. PASSR completed; LIFE TRAINER paged to request provider signature in highlighted space. Indigo from [facility] notified via email that home wound vac now cancelled; [facility] has picked up from room and order cancelled. Packet started and provided to sr community manager. Medicare important message explained to patient, patient signed. Copy provided to patient and signature page to OCM for inclusion in pt EMR. Radha Georges - 08/16/2017 10:34 AM EST Office of Care Management/Sample Checker Patient Name: Gregory Hoang : 1945 Patient has been offered a swing bed at [facility]. The patient will be transported by private transportation. No MD to MD report necessary Please call Nursing Report to [phone], ask for graduate intern. Info to accompany patient: Narcotic Prescriptions Copies of Medication Administration Records and IV sheets for past 10 days. Plan: Sample Checker will be available to the patient and Hypo Splasher-RN and/or Inside Meter Tester for further assistance. Patient will be discharged to: [facility] [address] [place] [id number] Radha Powers, Sample Checker Mira Black, VAMSI - 08/15/2017 10:05 PM EST [address] Flores to ask if he wanted to hold metoprolol dose. BP 95/58. OK to hold this dose Courtney Brito - 08/15/2017 3:26 PM EST Office of Care Management(OCM)/Sample Checker(RS)/ D/C Planning re : Patient is medically ready for d/c today. RS has been in contact with [facility] to see if they could offer a bed. [facility] is still reviewing the case and need their MD to review chart prior to accepting or declining. OCM team needs to check in with [place] tomorrow to check on status. 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 Vac in place. Rehab referrals ongoing. Can ambulate in hallway. Change VAC at bedside today. Naty Colindres RN - 08/14/2017 1:33 PM EST Patient Name: Gregory Hoang Patient Age: 72 y.o. Birthdate: 1945 Admit date: 08/06/2017 Attending Physician: Yonathan Smith MD We want him to go to a place for intensive therapy and not at a long term where he will be just sitting there and not getting any therapy. . Contacted by direct care RN, who said that patient and would like information about patient's referral to: [facility] PHONE: [phone] FAX: [phone] CM spoke with RS who said that [...] rehab. Await recommendations from PT. Covering pager #[phone]. 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 Varnish Melter Kaitlin Saha, RN Pager #[phone] Payam Rosales - 08/13/2017 2:37 PM EST Production Scheduler Encounter Note Patient Name: Gregory Hoang : [id number] MR#: [id number] Admit Date: 08/06/2017 1:41 PM Hospital Day 7 days Narrative: Visited to introduce and assess acceptance of Production Scheduler services. Pt was awake, alert, oriented and in chair and family was there. Assessment:Patient coping positively with stresses of illness/hospitalization at this time. Pt says that he is hoping to get better and his family was there. Pt says that he has family care and supportand taking one day at time. Intervention and Outcome: Provided emotional support and encouraging presence. 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 A letter describing our affiliations was reviewed with them and theywere educated about their right to choose where referrals are placed. Patient requests referral to [facility]. PHONE: [phone] FAX: [phone]. And Home NPWT (Negative Pressure Wound Therapy) aka wound vac device made available to pt. Serial # confirmed. Reviewed [facility] Proof of Delivery/Assignment of Benefits Statement(POD/AOB) Form w patient or authorized agent signing on behalf of patient. Copy of POD/AOB provided to pt and other copy faxed to [employer] @ fax# [phone] Expected date of discharge: 08/12/2017. 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 Address: [address] [place] [address] [place] [address] (home) Mobile: Telephone Information: Referring Provider: No [...] SETUP performed by Manny Mcknight MD at [facility] MAIN OR ??? PRO CABG, ARTERIAL, SINGLE N/A 07/07/2017 @CABG, USING ARTERIAL GRAFT;SINGLE ARTERIAL GRAFT (WRVU 33.75) performed by Yuan Retana MD at [facility] MAIN OR ??? PRO CABG, ARTERY-VEIN, TWO N/A 07/07/2017 @CABG, TWO VENOUS GRAFTS & ARTERIAL GRAFT (WRVU 7.93) performed by Yuan Retana MD at [facility] MAIN OR ??? PRO COLONOSCOPY, REMV LESN, SNARE 01/16/2014 COLONOSCOPY, POLYPECTOMY, REMOVAL LESION BY SNARE performed by Nohemi Jaimes MD at [facility] ENDOSCOPY ??? PRO ENDOSCOPY W/VIDEO-ASST VEIN HARVEST, CABG Right 07/07/2017 ENDOSCOPIC HARVEST VEIN(S) FOR CABG (WRVU 0.31) performed by Yuan Retana MD at [facility] MAIN OR ??? 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 Heparin gtt continues to run. Pt [...] of : 1945 AGE 72 y.o. Address: [address] [place] [address] [place] [address] (home) Mobile: Telephone Information: Referring Provider: No [...] SETUP performed by Manny Mcknight MD at [facility] MAIN OR ??? PRO CABG, ARTERIAL, SINGLE N/A 07/07/2017 @CABG, USING ARTERIAL GRAFT;SINGLE ARTERIAL GRAFT (WRVU 33.75) performed by Yuan Retana MD at [facility] MAIN OR ??? PRO CABG, ARTERY-VEIN, TWO N/A 07/07/2017 @CABG, TWO VENOUS GRAFTS & ARTERIAL GRAFT (WRVU 7.93) performed by Yuan Retana MD at [facility] OR ??? PRO COLONOSCOPY, REMV LESN, SNARE 01/16/2014 COLONOSCOPY, POLYPECTOMY, REMOVAL LESION BY SNARE performed by Nohemi Jaimes MD at [facility] ENDOSCOPY ??? PRO ENDOSCOPY W/VIDEO-ASST VEIN HARVEST, CABG Right 07/07/2017 ENDOSCOPIC HARVEST VEIN(S) FOR CABG (WRVU 0.31) performed by Yuan Retana MD at [facility] MAIN OR ??? 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 Unsuccessful draw attempt, another materials engineer will come 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 Vascular resident habitat conservation planner and will forward result to the team prior to rounds. 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 Patient [...] SETUP performed by Manny Mcknight MD at [facility] MAIN OR ??? PRO CABG, ARTERIAL, SINGLE N/A 07/07/2017 @CABG, USING ARTERIAL GRAFT;SINGLE ARTERIAL GRAFT (WRVU 33.75) performed by Yuan Retana MD at [facility] MAIN OR ??? PRO CABG, ARTERY-VEIN, TWO N/A 07/07/2017 @CABG, TWO VENOUS GRAFTS & ARTERIAL GRAFT (WRVU 7.93) performed by Yuan Retana MD at [facility] MAIN OR ??? PRO COLONOSCOPY, REMV LESN, SNARE 01/16/2014 COLONOSCOPY, POLYPECTOMY, REMOVAL LESION BY SNARE performed by Nohemi Jaimes MD at [facility] ENDOSCOPY ??? PRO ENDOSCOPY W/VIDEO-ASST VEIN HARVEST, CABG Right 07/07/2017 ENDOSCOPIC HARVEST VEIN(S) FOR CABG (WRVU 0.31) performed by Yuan Retana MD at [facility] MAIN OR ??? PRO THYROIDECTOMY 03/28/2013 THYROIDECTOMY, TOTAL OR COMPLETE performed by Manny Mcknight MD at [facility] MAIN OR Functional Status/Social Hx: Quit [...] blue toes with CTA showing R ADJUNCT FACULTY FOR MEDICAL TERMINOLOGY pseudoaneurysm (now thrombosed) and occluded ATs bilaterally. [...] 5. Completion RLE angiogram 6. L ADJUNCT FACULTY FOR MEDICAL TERMINOLOGY angiogram 7. 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 - L ADJUNCT FACULTY FOR MEDICAL TERMINOLOGY angriogram demonstrated: High femoral bifurcation over the proximal half of the femoral head. L ADJUNCT FACULTY FOR MEDICAL TERMINOLOGY access in the distal L ADJUNCT FACULTY FOR MEDICAL TERMINOLOGY. - Closure device: Mynx Technical Procedure: The [...] for a 45cm 5F Destination. V18 and [place] and QuickCross catheters were used to select [...] A stationed picture of the L ADJUNCT FACULTY FOR MEDICAL TERMINOLOGY was performed as the patient was noted to have a very high bifurcation. Access appeared in the distal R ADJUNCT FACULTY FOR MEDICAL TERMINOLOGY. Closure and sheath removal was performed with [...] PM EST 1440 report called to 5 eldorado nurse eTssa AGUSTIN documented in this encounter Miscellaneous Notes Plan of Care - Dory Truong RN - 08/16/2017 10:51 AM EST Problem: Patient Care Overview Goal: Plan of Care Review Outcome: Outcome (s) achieved Date Met: 08/16/17 08/14/17 1939 08/16/17 2871 Coping/Psychosocial Plan Of Care Reviewed With -- patient Plan of Care Review Progress improving -- Discussed discharge instructions with pt and pt's spouse. Discharge to [facility]. Goal: Individualization & Mutuality Outcome: Outcome (s) [...] sit/sit to supine -- Bed Mobility Goal, Lasalle Level independent -- Bed Mobility Goal, Date [...] days -- Transfer Training Goal, Activity Type oax-by-yumss/sdpwm-ut-gxd -- Transfer Train Goal, Lasalle Level conditional independence -- Transfer Train Goal, [...] call cabello within reach, Hourly rounding by RN/CREDENTIALING MANAGER. Bed alarm / Chair alarm. Patient-specific fall [...] Smith MD - 08/15/2017 6:28 PM EST [facility] Operative Note Patient Name: Gregory Hoang : [id number] MR#: [id number] Case Date: 08/09/2017 Surgeon: Surgeon(s) and Role: [...] 5. Completion RLE angiogram 6. L ADJUNCT FACULTY FOR MEDICAL TERMINOLOGY angiogram 7. Mynx closure Precautions/Restrictions: fall, sternal [...] feet/ bed -> bathroom). Anticipated Discharge Disposition: [facility] facility, other (see comments) (or swing bed) Pager: [phone] BASSAM ELIAS, PT 08/14/2017 Inpatient Physical Therapy [...] to Achieve by discharge Gait Training Goal, Lasalle Level conditional independence;set up required Gait Training [...] facilities over the weekend except for [facility]. CM spoke with [facility] KANWAL Sandhu RN who said that they do not anticipate any beds over the weekend. Reviewed with patient/ that they need to be aware that patient will need to take the first bed offered at the facilities that they make referrals to. Their choices are: 1- [facility] PHONE: [phone] FAX: [phone] 2- [facility] ([facility]) [address] [place] [address] 3- [facility])([facility]) [address] [place] [address] I have discussed Medicare/Private Insurance [...] RS/CM on Wednesday to follow-up. Covering pager #[phone] for today. Plan of Care - Henrique [...] additional findings of pseudoaneurysm on R ADJUNCT FACULTY FOR MEDICAL TERMINOLOGY and bilateral anterior tibial artery occlusions. Was [...] an outpatient once discharged. Have patient call [phone] to set up an appointment. Follow-up: Dermatology will sign-off for now. Please do not hesitate to contact us if you have any questions orconcerns. Impression and Recommendations discussed with primary team on 08/13/2017. Karo Henderson MD Resident in Dermatology Section of Dermatology, Department of Surgery [facility] Pager [phone] Patient seen and evaluated with staff Energy Derivatives Trader: Halima Cordero MD Section of Dermatology [facility] Level of Resident Supervision: Direct Supervision (The [...] MD Staff Physician Plan of Care - aYne Beckwith RN - 08/13/2017 12:38 AM EST [...] 4. Balloon angioplasty of R PT with Eleazra 2.5x80 5. Completion RLE angiogram 6. L ADJUNCT FACULTY FOR MEDICAL TERMINOLOGY angiogram 7. Mynx closure Active Non-Hospital Problems [...] home with home health ([facility] PT[facility]) Pager: [phone] YASIR TELLO OT 08/12/2017 Occupational Therapy Rehabilitation [...] 5. Completion RLE angiogram 6. L ADJUNCT FACULTY FOR MEDICAL TERMINOLOGY angiogram 7. Mynx closure Past Medical History: [...] with 24/7 assistance and maximal services) Pager: [phone] NICHOLAS MORA, JESSIE 08/12/2017 Physical Therapy Rehabilitation [...] sit/sit to supine -- Bed Mobility Goal, Lasalle Level independent -- Bed Mobility Goal, Outcome Achieved -- goal ongoing Goal: Gait Training Goal Stand Alone Therapy Goal Outcome: Ongoing (Interventions Implemented as Appropriate) 08/11/17 1310 08/12/17 1510 Gait Training Goal Gait Training Goal, Date Established 08/11/17 -- Gait Training Goal, Time to Achieve 5 - 7 days -- Gait Training Goal, Lasalle Level conditional independence -- Gait Training Goal, [...] days -- Transfer Training Goal, Activity Type kqe-gx-onfmk/zxlfp-wp-wtn -- Transfer Train Goal, Lasalle Level conditional independence -- Transfer Training Goal, [...] Smith MD - 08/11/2017 2:52 PM EST [facility] [place]ative Note Patient Name: Gregory Hoang : [id number] MR#: [id number] Case Date: 08/11/2017 Surgeon: Surgeon(s) and Role: [...] toe syndrome (possibly from a right ADJUNCT FACULTY FOR MEDICAL TERMINOLOGY PSA which has since thrombosed), now admitted [...] 5. Completion RLE angiogram 6. L ADJUNCT FACULTY FOR MEDICAL TERMINOLOGY angiogram 7. Mynx closure He is very [...] Anticipated Discharge Disposition: inpatient rehabilitation facility Pager: [phone] LAWRENCE GONZALEZ, PT 08/11/2017 Physical Therapy Rehabilitation [...] to sit/sit to supine Bed Mobility Goal, Lasalle Level independent Goal: Gait Training Goal Stand Alone Therapy Goal Outcome: Ongoing (Interventions Implemented as Appropriate) 08/11/17 1310 Gait Training Goal Gait Training Goal, Date Established 08/11/17 Gait Training Goal, Time to Achieve 5 - 7 days Gait Training Goal, Lasalle Level conditional independence Gait Training Goal, Assist [...] 7 days Transfer Training Goal, Activity Type wio-uh-cqgnq/dhvsp-uo-eyr Transfer Train Goal, Lasalle Level conditional independence Plan of Care - [...] call cabello within reach, Hourly rounding by RN/CREDENTIALING MANAGER. Bed alarm / Chair alarm. ? Patient-specific [...] 04/05/2013 Hospitalizations Within the Past 30 Days: [facility] 07/20/2017 Anticipated Length Of Stay (If known): Expected Length of Hospitalization: 5-7 days2-3 days Current Decision-Making Capacity: Alert and oriented x 4 Advance Care Planning: on file Kisha Hoang [facility] [phone] Current Coping/Education/Information Needs: pt and spouse state [...] Health/Prescription Coverage: Primary Insurance: MEDICARE Secondary Insurance: [employer] [place] Prescription Coverage: See above Preferred Pharmacy: [facility] Other: N/A Primary Care Provider: Lovely Vicente MD [phone] Patient/Caregiver Goals of Treatment: Patient plans to return home when medically ready Potential Needs for Transition of Care: Rehab/SNF: N/A Home Health: [facility]. DME: pt has a cane [...] of care planning. Kaitlin Saha RN Pager: [phone] Plan of Care - Melba Jaramillo RN [...] Overview Goal: Plan of Care Review 08/08/17 2694 Coping/Psychosocial Plan Of Care Reviewed With patient [...] call cabello within reach, Hourly rounding by RN/CREDENTIALING MANAGER. Bed alarm / Chair alarm. Patient-specific fall [...] at bedside and MD TEAM Carrying pager [phone] contacted (via Radio page) and notified of [...] Poole PA [facility] er Cardiology Dept [place], [place] [address] (Wo rk) 03/26/2022 Office Visit Cardiology Vitaliy Nobles MD [facility] CARDIOLOGY [place], [place] [address] (Wo rk) documented as [...] TYPE AND SCREEN Routine 08/09/2017 1:10 AM ([facility]/SHANDA) EST BASIC METABOLIC PANEL Routine 08/09/2017 1:10 [...] Signature POC Glucose 160 65 - 199 [facility] mg/dL [facility] Comment: Supplemental ranges: <140 mg/dL before meals <180 mg/dL all other times of the day Specimen Anatomical Collection Method Collection Time Receive d Time (Source) Location / / Volume Laterality Blood specimen 08/16/2017 7:28 AM 018 7:28 (specimen) EST AM EST Yonathan Smith MD POINT OF CARE TEST ORDERABLE S Performing Organization Address City/State/[place] [address] (ABNORMAL) Differential, Automated (08/16/2017 5:08 AM EST) Patholo gist Method Time Signature Neutrophils % 73.9 % [facility] Neutr Abs (ANC) 5.37 1.70 - [facility] 6.10 [facility] x10(3)/[facility] LABORATORY Lymphocytes % 10.1 % [facility] Lymphocytes Abs 0.7 (L) 0.9 - 3.2 [facility] x10(3)/[facility] LABORATORY Monocytes % 10.1 % [facility] Monocyte Abs 0.7 0.3 - 0.9 [facility] x10(3)/[facility] LABORATORY Eosinophils % 5.1 % [facility] Eosinophils Abs 0.4 0.0 - 0.4 [facility] x10(3)/[facility] LABORATORY Basophils % 0.4 % [facility] Basophils Abs 0.0 0.0 - 0.1 [facility] x10(3)/[facility] LABORATORY Immature Gran % 0.40 % [...] Melisa Gran Abs 0.03 0.00 - 0.04 x10(3)/[facility] MAR Y [facility]OR[facility]ORY Specimen Anatomical Collection Method Collection Time Receive d Time (Source) Location / / Volume Laterality Blood specimen 08/16/2017 5:08 AM 018 5:20 (specimen) EST AM EST Resulting Agency Comment Spec In Lab Yonathan Smith MD HEMATOLOGY ORDERABLES Performing Organization Address City/State/[place] [address] (ABNORMAL) Hemogram (08/16/2017 5:08 AM EST) Analysis Performed At Patho logist Time Signature WBC 7.3 4.0 - 9.5 [facility] x10(3)/[facility] LABORATORY RBC 3.36 (L) 4.58 - [facility] 5.54 [facility] x10(6)/[facility] LABORATORY Hemoglobin 9.7 (L) 13.7 - [facility] 16.5 gm/dL [facility] Hematocrit 30.3 (L) 40.5 - [facility] 48.5 % [facility] MCV 90.2 82.9 - [facility] 93.1 [facility] LABORATORY MCH 28.9 27.5 - [facility]BAR[facility] R[facility]AN 32.1 pg [facility] MCHC 32.0 32.0 - [facility] 35.7 gm/dL [facility] Platelets 282 145 - 357 [facility] x10(3)/[facility] LABORATORY RDWSD 53.9 (H) 36.0 - [facility]0 [facility] LABORATORY RDWCV 16.5 (H) 11.4 - [facility] 13.8 % [facility] MPV 9.0 7.6 - 12.9 [facility] LABORATORY nRBC % Auto 0.0 % [facility] nRBC Abs Auto 0.000 0.000 - [facility] 0.000 [facility] x10(3)/[facility] LABORATORY Specimen Anatomical Collection Method Collection Time Receive d Time (Source) Location / / Volume Laterality Blood specimen 08/16/2017 5:08 AM 018 5:20 (specimen) EST AM EST Resulting Agency Comment Spec In Lab Yonathan Smith MD HEMATOLOGY ORDERABLES Performing Organization Address City/State/[place] [address] (ABNORMAL) Basic Metabolic Panel (non-fasting) (08/16/2017 5:08 AM EST) athologist Signature Glucose Lvl 141 65 - 199 [facility] mg/dL [facility] Comment: Diabetes: >=200 mg/dL plus symp toms BUN 29 (H) 10 - 20 mg/dL [facility] Creatinine 1.25 0.80 - 1.50 mg/dL [facility] [...] estions. Chloride 99 98 - 107 mmol/L [facility] CO2 28 22 - 31 mmol/L [facility] Anion Gap 13 5 - 15 mmol/L [facility] Calcium 8.7 8.5 - 10.5 mg/dL [facility] Estimated GFR 57 (L) >=60 [facility] Comment: The reported eGFR should be multiplied b y 1.2 for patients. The MDRD is not an appropriate measure o f renal function for patients with body mass extremes or in patients with acute kidney failure. http://zwoor.com/DHnkdep http://zwoor.com/DHMCnkf Specimen Anatomical Collection Method Collection Time Receive d Time (Source) Location / / Volume Laterality Blood specimen 08/16/2017 5:08 AM 018 5:20 (specimen) EST AM EST Resulting Agency Comment Spec In Lab Yonathan Smith MD CHEMISTRY ORDERABLES Performing Organization Address City/State/[place] [address] (ABNORMAL) Prothrombin Time (08/16/2017 5:08 AM EST) athologist Signature PT 25.2 (H) 11.8 - 14.0 [facility] LABORATORY INR 2.3 (H) 0.9 - 1.1 [facility] [...] Organization Address City/State/ZIP Code Phon e Number [address] POCT Glucose (08/16/2017 4:09 AM EST) athologist Signature POC Glucose 147 65 - 199 [place] mg/dL [facility] Comment: Supplemental [...] [facility]/ZIP Code Phon e Number [address] POCT Glucose (08/15/2017 11:56 PM EST) athologist Signature POC Glucose 176 65 - 199 [facility] [place] mg/dL [facility] Comment: Supplemental ranges: <140 mg/dL before meals <180 mg/dL all other times of the day Specimen Anatomical Collection Method Collection Time Receive d Time (Source) Location / / Volume Laterality Blood specimen 08/15/2017 11:56 8 (specimen) PM EST 11:56 PM EST Yonathan Smith MD POINT OF CARE TEST ORDERABLE S Performing Organization Address City/State/[place] [address] POCT Glucose (08/15/2017 8:05 PM EST) athologist Signature POC Glucose 136 65 - 199 [facility] [place] mg/dL [facility] Comment: Supplemental ranges: <140 mg/dL before meals <180 mg/dL all other times of the day Specimen Anatomical Collection Method Collection Time Receive d Time (Source) Location / / Volume Laterality Blood specimen 08/15/2017 8:05 PM 018 8:05 (specimen) EST PM EST Yonathan Smith MD POINT OF CARE TEST ORDERABLE S Performing Organization Address City/State/[place] [address] (ABNORMAL) POCT Glucose (08/15/2017 4:50 PM EST) athologist Signature POC Glucose 232 (H) 65 - 199 [place] mg/dL [facility] Comment: Supplemental ranges: <140 mg/dL before meals <180 mg/dL all other times of the day Specimen Anatomical Collection Method Collection Time Receive d Time (Source) Location / / Volume Laterality Blood specimen 08/15/2017 4:50 PM 018 4:50 (specimen) EST PM EST Yonathan Smith MD POINT OF CARE TEST ORDERABLE S Performing Organization Address City/State/[place] [address] POCT Glucose (08/15/2017 12:04 PM EST) athologist Signature POC Glucose 135 65 - 199 [place] mg/dL [facility] Comment: Supplemental ranges: <140 mg/dL before meals <180 mg/dL all other times of the day Specimen Anatomical Collection Method Collection Time Receive d Time (Source) Location / / Volume Laterality Blood specimen 08/15/2017 12:04 8 (specimen) PM EST 12:04 PM EST Yonathan Smith MD POINT OF CARE TEST ORDERABLE S Performing Organization Address City/State/[place] [address] POCT Glucose (08/15/2017 7:36 AM EST) athologist Signature POC Glucose 124 65 - 199 [place] mg/dL [facility] Comment: Supplemental ranges: <140 mg/dL before meals <180 mg/dL all other times of the day Specimen Anatomical Collection Method Collection Time Receive d Time (Source) Location / / Volume Laterality Blood specimen 08/15/2017 7:36 AM 018 7:36 (specimen) EST AM EST Yonathan Smith MD POINT OF CARE TEST ORDERABLE S Performing Organization Address City/State/[place] [address] (ABNORMAL) Differential, Automated (08/15/2017 6:22 AM EST) [facility] Method Time Signature Neutrophils % 76.1 % [facility] Neutr Abs (ANC) 6.62 (H) 1.70 - [facility] 6.10 [facility] x10(3)/[facility] L LABORATORY Lymphocytes % 9.3 % [facility] Lymphocytes Abs 0.8 (L) 0.9 - 3.2 [facility] x10(3)/[facility] LABORATORY Monocytes % 9.4 % [facility] Monocyte Abs 0.8 0.3 - 0.9 [facility] x10(3)/[facility] LABORATORY Eosinophils % 4.0 % [facility] Eosinophils Abs 0.4 0.0 - 0.4 [facility] x10(3)/[facility] LABORATORY Basophils % 0.6 % [facility] Basophils Abs 0.0 0.0 - 0.1 [facility] x10(3)/[facility] LABORATORY Immature Gran % 0.60 % [facility] [...] Abs 0.05 (H) 0.00 - 0.04 x10(3)/[facility] LABORATORY Specimen Anatomical Collection Method Collection Time Receive d Time (Source) Location / / Volume Laterality Blood specimen 08/15/2017 6:22 AM 018 6:33 (specimen) EST AM EST Resulting Agency Comment Spec In Lab Yonathan Smith MD HEMATOLOGY ORDERABLES Performing Organization Address City/State/[place] [address] (ABNORMAL) Hemogram (08/15/2017 6:22 AM EST) Analysis Performed At Patho logist Time Signature WBC 8.7 4.0 - 9.5 [facility] LABORATORY RBC 3.21 (L) 4.58 - [place] 5.54 [facility] x10(6)/[facility] LABORATORY Hemoglobin 9.1 (L) 13.7 - [facility] gm/dL [facility] Hematocrit 29.0 (L) 40.5 - [facility] 48.5 % [facility] MCV 90.3 82.9 - [facility] 93.1 [facility] LABORATORY MCH 28.3 27.5 - [place] 32.1 pg [facility] MCHC 31.4 (L) 32.0 - [place] 35.7 gm/dL [facility] Platelets 254 145 - 357 [facility] x10(3)/[facility] LABORATORY RDWSD 53.9 (H) 36.0 - [place] 45.0 [facility] LABORATORY RDWCV 16.3 (H) 11.4 - [facility] 13.8 % [facility] MPV 8.8 7.6 - 12.9 [facility] LABORATORY nRBC % Auto 0.0 % [facility] nRBC Abs Auto 0.000 0.000 - [facility] 0.000 [facility] x10(3)/[facility] LABORATORY Specimen Anatomical Collection Method Collection Time Receive d Time (Source) Location / / Volume Laterality Blood specimen 08/15/2017 6:22 AM 018 6:33 (specimen) EST AM EST Resulting Agency Comment Spec In Lab Yonathan Smith MD HEMATOLOGY ORDERABLES Performing Organization Address City/State/ZIP Code Phon e Number [place] [id number]OSP[address] LAB[address]ATORY Drive (ABNORMAL) Basic Metabolic Panel (non-fasting) (08/15/2017 6:22 AM EST) P athologist Signature Glucose Lvl 118 65 - 199 [facility] mg/dL [facility] Comment: Diabetes: >=200 mg/dL plus symp toms BUN 27 (H) 10 - 20 mg/dL [facility] Creatinine 1.12 0.80 - 1.50 mg/dL [facility] Sodium 138 135 - 145 [...] mmol/L [facility] CO2 29 22 - 31 mmol/L [facility] Anion Gap 11 5 - 15 mmol/L [facility] Calcium 8.8 8.5 - 10.5 mg/dL [facility] Estimated GFR >60 >=60 [facility] Comment: The reported eGFR should be multiplied b y 1.2 for patients. The MDRD is not an appropriate measure o f renal function for patients with body mass extremes or in patients with acute kidney failure. http://[email or web address]/DHnkdep http://zwoor.com/DHMCnkf Specimen Anatomical Collection Method Collection Time Receive d Time (Source) Location / / Volume Laterality Blood specimen 08/15/2017 6:22 AM 018 6:33 (specimen) EST AM EST Resulting Agency Comment Spec In Lab Yonathan Smith MD CHEMISTRY ORDERABLES Performing Organization Address City/State/[place] [address] (ABNORMAL) Prothrombin Time (08/15/2017 6:22 AM EST) athologist Signature PT 21.9 (H) 11.8 - 14.0 [facility] LABORATORY INR 1.9 (H) 0.9 - 1.1 [facility] [...] Organization Address City/State/ZIP Code Phon e Number [address] POCT Glucose (08/15/2017 4:33 AM EST) athologist Signature POC Glucose 164 65 - 199 [facility] Comment: Supplemental ranges: [...] [facility]/ZIP Code Phon e Number [address] POCT Glucose (08/15/2017 12:12 AM EST) athologist Signature POC Glucose 89 65 - 199 [facility] Comment: Supplemental ranges: <140 mg/dL before meals <180 mg/dL all other times of the day Specimen Anatomical Collection Method Collection Time Receive d Time (Source) Location / / Volume Laterality Blood specimen 08/15/2017 12:12 8 (specimen) AM EST 12:12 AM EST Yonathan Smith MD POINT OF CARE TEST ORDERABLE S Performing Organization Address City/State/[place] [address] (ABNORMAL) POCT Glucose (08/14/2017 8:07 PM EST) athologist Signature POC Glucose 204 (H) 65 - 199 [facility] mg/dL [facility] Comment: Supplemental ranges: <140 mg/dL before meals <180 mg/dL all other times of the day Specimen Anatomical Collection Method Collection Time Receive d Time (Source) Location / / Volume Laterality Blood specimen 08/14/2017 8:07 PM 018 8:07 (specimen) EST PM EST Yonathan Smith MD POINT OF CARE TEST ORDERABLE S Performing Organization Address City/State/ZIP Code Phon e Number [address] POCT Glucose (08/14/2017 5:11 PM EST) athologist Signature POC Glucose 174 65 - 199 [facility]/dL [facility] Comment: Supplemental ranges: <140 mg/dL before meals <180 mg/dL all other times of the day Specimen Anatomical Collection Method Collection Time Receive d Time (Source) Location / / Volume Laterality Blood specimen 08/14/2017 5:11 PM 018 5:11 (specimen) EST PM EST Yonathan Smith MD POINT OF CARE TEST ORDERABLE S Performing Organization Address City/State/[place] [address] POCT Glucose (08/14/2017 12:10 PM EST) athologist Signature POC Glucose 141 65 - 199 [facility] Comment: Supplemental ranges: <140 mg/dL before meals <180 mg/dL all other times of the day Specimen Anatomical Collection Method Collection Time Receive d Time (Source) Location / / Volume Laterality Blood specimen 08/14/2017 12:10 8 (specimen) PM EST 12:10 PM EST Yonathan Smith MD POINT OF CARE TEST ORDERABLE S Performing Organization Address City/State/[place] [address] POCT Glucose (08/14/2017 8:07 AM EST) P athologist Signature POC Glucose 158 65 - 199 [facility] mg/dL [facility] Comment: Supplemental ranges: <140 mg/dL before meals <180 mg/dL all other times of the day Specimen Anatomical Collection Method Collection Time Receive d Time (Source) Location / / Volume Laterality Blood specimen 08/14/2017 8:07 AM 018 8:07 (specimen) EST AM EST Yonathan Smith MD POINT OF CARE TEST ORDERABLE S Performing Organization Address City/State/[place] [address] (ABNORMAL) Differential, Automated (08/14/2017 4:52 AM EST) Patholo gist Method Time Signature Neutrophils % 78.6 % [facility]ORY Neutr Abs (ANC) 7.70 (H) 1.70 - [facility] 6.10 [facility] x10(3)/[facility] L LABORATORY Lymphocytes % 7.8 % [facility]ORATORY Lymphocytes Abs 0.8 (L) 0.9 - 3.2 [facility] x10(3)/[facility] LABORATORY Monocytes % 8.8 % [facility]ORATORY Monocyte Abs 0.9 0.3 - 0.9 [facility] x10(3)/[facility] LABORATORY Eosinophils % 4.0 % [facility] Eosinophils Abs 0.4 0.0 - 0.4 [facility] x10(3)/[facility] LABORATORY Basophils % 0.5 % [facility] Basophils Abs 0.0 0.0 - 0.1 [facility] x10(3)/[facility] LABORATORY Immature Gran % 0.30 % [...] Melisa Gran Abs 0.03 0.00 - 0.04 x10(3)/[facility] LABORATORY Specimen Anatomical Collection Method Collection Time Receive d Time (Source) Location / / Volume Laterality Blood specimen 08/14/2017 4:52 AM 018 5:08 (specimen) EST AM EST Resulting Agency Comment Spec In Lab Yonathan Smith MD HEMATOLOGY ORDERABLES Performing Organization Address City/State/[place] [address] (ABNORMAL) Hemogram (08/14/2017 4:52 AM EST) Analysis Performed At Patho logist Time Signature WBC 9.8 (H) 4.0 - 9.5 [facility] x10(3)/[facility] LABORATORY RBC 3.32 (L) 4.58 - [facility] 5.54 [facility] x10(6)/[facility] LABORATORY Hemoglobin 9.5 (L) 13.7 - [facility] 16.5 gm/dL [facility] Hematocrit 30.3 (L) 40.5 - [facility] 48.5 % [facility] MCV 91.3 82.9 - [facility] 93.1 [facility] LABORATORY MCH 28.6 27.5 - [facility] 32.1 pg [facility] MCHC 31.4 (L) 32.0 - [facility] 35.7 gm/dL [facility] Platelets 263 145 - 357 [facility] x10(3)/[facility] LABORATORY RDWSD 54.8 (H) 36.0 - [facility] RYAN 45.0 [facility] LABORATORY RDWCV 16.5 (H) 11.4 - [facility] 13.8 % [facility] MPV 9.1 7.6 - 12.9 [facility] LABORATORY nRBC % Auto 0.0 % [facility]ORATORY nRBC Abs Auto 0.000 0.000 - [facility] 0[facility]000 [facility] x10(3)/[facility] LABORATORY Specimen Anatomical Collection Method Collection Time Receive d Time (Source) Location / / Volume Laterality Blood specimen 08/14/2017 4:52 AM 018 5:08 (specimen) EST AM EST Resulting Agency Comment Spec In Lab Yonathan Smith MD HEMATOLOGY ORDERABLES Performing Organization Address City/[facility]/[place] [address] (ABNORMAL) Prothrombin Time (08/14/2017 4:52 AM EST) athologist Signature PT 18.8 (H) 11.8 - 14.0 [facility] LABORATORY INR 1.6 (H) 0.9 - [...] Organization Address City/State/[place] [address] (ABNORMAL) Basic Metabolic Panel (non-fasting) (08/14/2017 4:52 AM EST) athologist Signature Glucose Lvl 135 65 - 199 [facility] mg/dL [facility] Comment: Diabetes: >=200 mg/dL plus symp toms BUN 25 (H) 10 - 20 mg/dL [facility] Creatinine 1.36 0.80 - 1.50 mg/dL [facility] LABORATORY [...] Gap 13 5 - 15 mmol/L [facility] Calcium 8.5 8.5 - 10.5 mg/dL [facility] Estimated GFR 52 (L) >=60 [facility] Comment: The reported eGFR should be multiplied b y 1.2 for patients. The MDRD is not an appropriate measure o f renal function for patients with body mass extremes or in patients with acute kidney failure. http://zwoor.com/DHnkdep http://zwoor.com/DHMCnkf Specimen Anatomical Collection Method Collection Time Receive d Time (Source) Location / / Volume Laterality Blood specimen 08/14/2017 4:52 AM 018 5:08 (specimen) EST AM EST Resulting Agency Comment Spec In Lab Yonathan Smith MD CHEMISTRY ORDERABLES Performing Organization Address City/[facility]/ZIP Code Phon e Number [address] POCT Glucose (08/14/2017 3:56 AM EST) athologist Signature POC Glucose 135 65 - 199 [facility] Comment: Supplemental ranges: <140 mg/dL before meals <180 mg/dL all other times of the day Specimen Anatomical Collection Method Collection Time Receive d Time (Source) Location / / Volume Laterality Blood specimen 08/14/2017 3:56 AM 018 3:56 (specimen) EST AM EST Yonathan Smith MD POINT OF CARE TEST ORDERABLE S Performing Organization Address City/[facility]/ZIP [facility] Phon e Number [address] POCT Glucose (08/13/2017 11:13 PM EST) athologist Signature POC Glucose 118 65 - 199 [facility] Comment: Supplemental ranges: <140 mg/dL before meals <180 mg/dL all other times of the day Specimen Anatomical Collection Method Collection Time Receive d Time (Source) Location / / Volume Laterality Blood specimen 08/13/2017 11:13 8 (specimen) PM EST 11:13 PM EST Yonathan Smith MD POINT OF CARE TEST ORDERABLE S Performing Organization Address City/State/[place] [address] (ABNORMAL) POCT Glucose (08/13/2017 8:08 PM EST) athologist Signature POC Glucose 204 (H) 65 - 199 [place] mg/dL [facility] Comment: Supplemental ranges: <140 mg/dL before meals <180 mg/dL all other times of the day Specimen Anatomical Collection Method Collection Time Receive d Time (Source) Location / / Volume Laterality Blood specimen 08/13/2017 8:08 PM 018 8:08 (specimen) EST PM EST Yonathan Smith MD POINT OF CARE TEST ORDERABLE S Performing Organization Address City/State/[place] [address] POCT Glucose (08/13/2017 4:02 PM EST) athologist Signature POC Glucose 145 65 - 199 [place] mg/dL [facility] Comment: Supplemental ranges: <140 mg/dL before meals <180 mg/dL all other times of the day Specimen Anatomical Collection Method Collection Time Receive d Time (Source) Location / / Volume Laterality Blood specimen 08/13/2017 4:02 PM 018 4:02 (specimen) EST PM EST Yonathan Smith MD POINT OF CARE TEST ORDERABLE S Performing Organization Address City/State/[place] [address] POCT Glucose (08/13/2017 11:31 AM EST) athologist Signature POC Glucose 179 65 - 199 [place] mg/dL [facility] Comment: Supplemental ranges: <140 mg/dL before meals <180 mg/dL all other times of the day Specimen Anatomical Collection Method Collection Time Receive d Time (Source) Location / / Volume Laterality Blood specimen 08/13/2017 11:31 8 (specimen) AM EST 11:31 AM EST Yonathan Smith MD POINT OF CARE TEST ORDERABLE S Performing Organization Address City/State/[place] [address] (ABNORMAL) POCT Glucose (08/13/2017 10:16 AM EST) P athologist Signature POC Glucose 211 (H) 65 - 199 [facility] Comment: Supplemental ranges: [...] [facility]/[place] [address] JULIAN, legs, multiple levels (08/13/2017 7:42 AM EST) Component Value Ref Test Analysis Performed At Patholo gist Range Method Time Signature VB Text Department: Vascular Surgery Lab VASCUBASE Report Patient: [id number] (GREGORY HOANG) CPT: 97802 ICD10: I99.8 Referring Physician: YONATHAN SMITH ?? Indications: s/p R 1,2,3 toe amps with red left foot, need n ew baseline Diabetes mellitus: yes ICD10 Diagnosis Code: I99.8 Findings: Right ?Pressure (mm Hg) ?? JULIAN ??Waveform ?TBI ?? Brachial Artery ?138 ? Dorsalis Pedis (Ankle) Arter y ?132 ? 0.94 ??Custer- Biphasic ? Posterior Tibial (Ankle) Art anila ??154 ? 1.10 ??Custer-Biphasic ? Fourth Toe ? 67 ? 0.48 [...] Signature POC Glucose 156 65 - 199 [facility] mg/dL [facility] Comment: Supplemental ranges: <140 mg/dL before meals <180 mg/dL all other times of the day Specimen Anatomical Collection Method Collection Time Receive d Time (Source) Location / / Volume Laterality Blood specimen 08/13/2017 7:33 AM 018 7:33 (specimen) EST AM EST Yonathan Smith MD POINT OF CARE TEST ORDERABLE S Performing Organization Address City/State/[place] [address] (ABNORMAL) Differential, Automated (08/13/2017 5:33 AM EST) Patholo gist Method Time Signature Neutrophils % 77.8 % [facility] LABORATORY Neutr Abs (ANC) 7.83 (H) 1.70 - [facility] 6.10 [facility] x10(3)/[facility] L LABORATORY Lymphocytes % 8.4 % [facility] LABORATORY Lymphocytes Abs 0.8 (L) 0.9 - 3.2 [facility] x10(3)/[facility] LABORATORY Monocytes % 8.3 % [facility]ORATORY Monocyte Abs 0.8 0.3 - 0.9 [facility] x10(3)/[facility] LABORATORY Eosinophils % 4.6 % [facility]ORATORY Eosinophils Abs 0.5 (H) 0.0 - 0.4 [facility] x10(3)/[facility] LABORATORY Basophils % 0.5 % [facility]ORATORY Basophils Abs 0.0 0.0 - 0.1 [facility] x10(3)/[facility] LABORATORY Immature Gran % 0.40 % [...] Melisa Gran Abs 0.04 0.00 - 0.04 x10(3)/[facility] LAB[facility] Specimen Anatomical Collection Method Collection Time Receive d Time (Source) Location / / Volume Laterality Blood specimen 08/13/2017 5:33 AM 018 6:04 (specimen) EST AM EST Resulting Agency Comment Spec In Lab Yonathan Smith MD HEMATOLOGY ORDERABLES Performing Organization Address City/State/[place] [address] (ABNORMAL) Hemogram (08/13/2017 5:33 AM EST) Analysis Performed At Patho logist Time Signature WBC 10.1 (H) 4.0 - 9.5 [facility] x10(3)/[facility] LABORATORY RBC 3.21 (L) 4.58 - [facility] 5.54 [facility] x10(6)/[facility] LABORATORY Hemoglobin 9.2 (L) 13.7 - [facility] gm/dL [facility] LAB[facility]ATORY Hematocrit 29.6 (L) 40.5 - [facility] 48.5 % [facility] LAB[facility]ORY MCV 92.2 82.9 - [facility] 93.1 [facility] LABORATORY MCH 28.7 27.5 - [place] [facility] 32.1 pg [facility] LABORATORY MCHC 31.1 (L) 32.0 - [facility] 35.7 gm/dL [facility] LABORATORY Platelets 263 145 - 357 [facility] x10(3)/[facility] LABORATORY RDWSD 54.8 (H) 36.0 - [facility]0 [facility] LABORATORY RDWCV 16.4 (H) 11.4 - [facility] 13.8 % [facility] LABORATORY MPV 9.2 7.6 - 12.9 [facility] LABORATORY nRBC % Auto 0.0 % [facility] LABORATORY nRBC Abs Auto 0.000 0.000 - [facility] x10(3)/[facility] LABORATORY Specimen Anatomical Collection Method Collection Time Receive d Time (Source) Location / / Volume Laterality Blood specimen 08/13/2017 5:33 AM 018 6:04 (specimen) EST AM EST Resulting Agency Comment Spec In Lab Yonathan Smith MD HEMATOLOGY ORDERABLES Performing Organization Address City/State/[place] [address] (ABNORMAL) Prothrombin Time (08/13/2017 5:33 AM EST) P athologist Signature PT 17.3 (H) 11.8 - 14.0 [facility] LABORATORY INR 1.4 (H) 0.9 - 1.1 [facility] Organization Address City/State/[place] [address] (ABNORMAL) Basic Metabolic Panel (non-fasting) (08/13/2017 5:33 AM EST) athologist Signature Glucose Lvl 126 65 - 199 [facility] mg/dL [facility] LABORATORY Comment: Diabetes: >=200 mg/dL plus symp toms BUN 18 10 - 20 mg/dL [facility] LABORATORY Creatinine 1.16 0.80 - 1.50 mg/dL [facility] LABORATORY [...] mmol/L [facility] LABORATORY CO2 29 22 - 31 mmol/L [facility] LABORATORY Anion Gap 12 5 - 15 mmol/L [facility] LABORATORY Calcium 7.9 (L) 8.5 - 10.5 mg/dL [facility] LABORATORY Estimated GFR >60 >=60 [facility] LABORATORY Comment: The reported eGFR should be multiplied b y 1.2 for patients. The MDRD is not an appropriate measure o f renal function for patients with body mass extremes or in patients with acute kidney failure. http://zwoor.com/DHnkdep http://zwoor.com/DHMCnkf Specimen Anatomical Collection Method Collection Time Receive d Time (Source) Location / / Volume Laterality Blood specimen 08/13/2017 5:33 AM 018 6:04 (specimen) EST AM EST Resulting Agency Comment Spec In Lab Yonathan Smith MD CHEMISTRY ORDERABLES Performing Organization Address City/[facility]/ZIP Code Phon e Number [address] POCT Glucose (08/13/2017 4:29 AM EST) athologist Signature POC Glucose 111 65 - 199 [place] mg/dL [facility] LABORATORY Comment: Supplemental [...] [facility]/ZIP Code Phon e Number [address] POCT Glucose (08/12/2017 11:28 PM EST) athologist Signature POC Glucose 164 65 - 199 [place] mg/dL [facility] LABORATORY Comment: Supplemental [...] [facility]/ZIP Code Phon e Number [address] (ABNORMAL) POCT Glucose (08/12/2017 7:40 PM EST) athologist Signature POC Glucose 209 (H) 65 - 199 [place] mg/dL [facility] LABORATORY Comment: Supplemental [...] [facility]/ZIP Code Phon e Number [address] POCT Glucose (08/12/2017 4:24 PM EST) athologist Signature POC Glucose 161 65 - 199 [place] ZHAORYAN mg/dL [facility] LABORATORY Comment: Supplemental [...] [facility]/ZIP Code Phon e Number [address] POCT Glucose (08/12/2017 12:00 PM EST) athologist Signature POC Glucose 167 65 - 199 [place] mg/dL [facility] LABORATORY Comment: Supplemental [...] [facility]/ZIP Code Phon e Number [address] POCT Glucose (08/12/2017 7:25 AM EST) athologist Signature POC Glucose 152 65 - 199 [facility] RYAN mg/dL [facility] LABORATORY Comment: Supplemental ranges: <140 mg/dL before meals <180 mg/dL all other times of the day Specimen Anatomical Collection Method Collection Time Receive d Time (Source) Location / / Volume Laterality Blood specimen 08/12/2017 7:25 AM 018 7:25 (specimen) EST AM EST Yonathan Smith MD POINT OF CARE TEST ORDERABLE S Performing Organization Address City/State/[place] [address] (ABNORMAL) Differential, Automated (08/12/2017 6:29 AM EST) [facility] Method Time Signature Neutrophils % 78.7 % [facility] LABORATORY Neutr Abs (ANC) 7.94 (H) 1.70 - [facility] 6.10 [facility] x10(3)/[facility] LABORATORY Lymphocytes % 8.8 % [facility] LABORATORY Lymphocytes Abs 0.9 0.9 - 3.2 [facility] x10(3)/[facility] LABORATORY Monocytes % 7.8 % [facility] LABORATORY Monocyte Abs 0.8 0.3 - 0.9 [facility] x10(3)/[facility] LABORATORY Eosinophils % 3.9 % [facility] LABORATORY Eosinophils Abs 0.4 0.0 - 0.4 [facility] x10(3)/[facility] LABORATORY Basophils % 0.3 % [facility] LABORATORY Basophils Abs 0.0 0.0 - 0.1 [facility] x10(3)/[facility] LABORATORY Immature Gran % 0.50 % [facility] LABORATORY Comment: Immature granulocytes(IG's)percentage an d absolute count will include metamyelocytes, myelocytes, and promyelo cytes. Blood smears from CBCs yielding IG's will be scanned manually for concor dance. If this scan disagrees with the automated IG or if promyelocytes are not ed, a manual differential will be performed. Melisa Gran Abs 0.05 (H) 0.00 - 0.04 x10(3)/[facility] LABORATORY Specimen Anatomical Collection Method Collection Time Receive d Time (Source) Location / / Volume Laterality Blood specimen 08/12/2017 6:29 AM 018 6:38 (specimen) EST AM EST Resulting Agency Comment Spec In Lab Yonathan Smith MD HEMATOLOGY ORDERABLES Performing Organization Address City/State/ZIP Code [place] [address] (ABNORMAL) Hemogram (08/12/2017 6:29 AM EST) Analysis Performed At Patho logist Time Signature WBC 10.1 (H) 4.0 - 9.5 [facility] x10(3)/[facility] LABORATORY RBC 3.02 (L) 4.58 - [facility] 5.54 [facility] x10(6)/[facility] LABORATORY Hemoglobin 8.7 (L) 13.7 - [facility] gm/dL [facility] LABORATORY Hematocrit 28.1 (L) 40.5 - [facility] 48.5 % [facility]ATORY MCV 93.0 82.9 - [facility]1 [facility] LABORATORY MCH 28.8 27.5 - [facility] 32.1 pg [facility] MCHC 31.0 (L) 32.0 - [facility] 35.7 gm/dL [facility] LABOR[facility]ORY Platelets 223 145 - 357 [facility] x10(3)/[facility] LABORATORY RDWSD 56.1 (H) 36.0 - [facility] 45.0 [facility] LABORATORY RDWCV 16.4 (H) 11.4 - [facility] 13.8 % [facility] LABORATORY MPV 9.0 7.6 - 12.9 [facility] LABORATORY nRBC % Auto 0.0 % [facility] LABORATORY nRBC Abs Auto 0.000 0.000 - [facility] 0.000 [facility] x10(3)/[facility] LABORATORY Specimen Anatomical Collection Method Collection Time Receive d Time (Source) Location / / Volume Laterality Blood specimen 08/12/2017 6:29 AM 018 6:38 (specimen) EST AM EST Resulting Agency Comment Spec In Lab Yonathan Smith MD HEMATOLOGY ORDERABLES Performing Organization Address City/State/[place] [address] (ABNORMAL) Prothrombin Time (08/12/2017 6:29 AM EST) P athologist Signature PT 16.1 (H) 11.8 - 14.0 [facility] LABORATORY INR 1.3 (H) 0.9 - [...] Organization Address City/State/[place] [address] (ABNORMAL) Basic Metabolic Panel (non-fasting) (08/12/2017 6:29 AM EST) athologist Signature Glucose Lvl 151 65 - 199 [facility] mg/dL [facility] LABORATORY Comment: Diabetes: >=200 mg/dL plus symp toms BUN 18 10 - 20 mg/dL [facility] LABORATORY Creatinine 1.11 0.80 - 1.50 mg/dL [facility] LABORATORY Sodium 138 135 - 145 [...] estions. Chloride 99 98 - 107 mmol/L [facility] LABORATORY CO2 28 22 - 31 mmol/L [facility] LABORATORY Anion Gap 11 5 - 15 mmol/L [facility] LABORATORY Calcium 7.9 (L) 8.5 - 10.5 mg/dL [facility] LABORATORY Estimated GFR >60 >=60 [facility] LABOR[facility]ORY Comment: The reported eGFR should be multiplied b y 1.2 for patients. The MDRD is not an appropriate measure o f renal function for patients with body mass extremes or in patients with acute kidney failure. http://zwoor.com/DHnkdep http://zwoor.com/DHMCnkf Specimen Anatomical Collection Method Collection Time Receive d Time (Source) Location / / Volume Laterality Blood specimen 08/12/2017 6:29 AM 018 6:38 (specimen) EST AM EST Resulting Agency Comment Spec In Lab Yonathan Smith MD CHEMISTRY ORDERABLES Performing Organization Address City/[facility]/ZIP Code Phon e Number [address] POCT Glucose (08/12/2017 4:08 AM EST) athologist Signature POC Glucose 181 65 - 199 [facility] LABOR[facility] Comment: Supplemental ranges: [...] [facility]/[place] [address] (ABNORMAL) POCT Glucose (08/12/2017 12:17 AM EST) athologist Signature POC Glucose 221 (H) 65 - 199 [facility] Comment: Supplemental ranges: <140 mg/dL before meals <180 mg/dL all other times of the day Specimen Anatomical Collection Method Collection Time Receive d Time (Source) Location / / Volume Laterality Blood specimen 08/12/2017 12:17 8 (specimen) AM EST 12:17 AM EST Yonathan Smith MD POINT OF CARE TEST ORDERABLE S Performing Organization Address City/State/[place] [address] (ABNORMAL) POCT Glucose (08/11/2017 8:52 PM EST) athologist Signature POC Glucose 221 (H) 65 - 199 [place] mg/dL [facility] LABORATORY Comment: Supplemental ranges: <140 mg/dL before meals <180 mg/dL all other times of the day Specimen Anatomical Collection Method Collection Time Receive d Time (Source) Location / / Volume Laterality Blood specimen 08/11/2017 8:52 PM 018 8:52 (specimen) EST PM EST Yonathan Smith MD POINT OF CARE TEST ORDERABLE S Performing Organization Address City/State/[place] [address] POCT Glucose (08/11/2017 5:59 PM EST) athologist Signature POC Glucose 169 65 - 199 [facility] LABOR[facility] Comment: Supplemental ranges: <140 mg/dL before meals <180 mg/dL all other times of the day Specimen Anatomical Collection Method Collection Time Receive d Time (Source) Location / / Volume Laterality Blood specimen 08/11/2017 5:59 PM 018 5:59 (specimen) EST PM EST Yonathan Smith MD POINT OF CARE TEST ORDERABLE S Performing Organization Address City/State/[place] [address] (ABNORMAL) POCT Glucose (08/11/2017 4:08 PM EST) athologist Signature POC Glucose 240 (H) 65 - 199 [place] RY[place] mg/dL [facility] LABORATORY Comment: Supplemental ranges: <140 mg/dL before meals <180 mg/dL all other times of the day Specimen Anatomical Collection Method Collection Time Receive d Time (Source) Location / / Volume Laterality Blood specimen 08/11/2017 4:08 PM 018 4:08 (specimen) EST PM EST Yonathan Smith MD POINT OF CARE TEST ORDERABLE S Performing Organization Address City/State/[place] [address] POCT Glucose (08/11/2017 12:04 PM EST) athologist Signature POC Glucose 182 65 - 199 [facility] LABOR[facility] Comment: Supplemental ranges: <140 mg/dL before meals <180 mg/dL all other times of the day Specimen Anatomical Collection Method Collection Time Receive d Time (Source) Location / / Volume Laterality Blood specimen 08/11/2017 12:04 8 (specimen) PM EST 12:04 PM EST Yonathan Smith MD POINT OF CARE TEST ORDERABLE S Performing Organization Address City/State/ZIP Code Phon e Number [address] POCT Glucose (08/11/2017 7:31 AM EST) athologist Signature POC Glucose 156 65 - 199 [facility] Comment: Supplemental ranges: [...] [facility]/ZIP Code Phon e Number [address] (ABNORMAL) Differential, Automated (08/11/2017 6:16 AM EST) [facility] gist Method Time Signature Neutrophils % 83.7 % [facility] LABORATORY Neutr Abs (ANC) 10.76 (H) 1.70 - [facility] 6.10 [facility] x10(3)/[facility] L LABORATORY Lymphocytes % 6.0 % [facility] LABORATORY Lymphocytes Abs 0.8 (L) 0.9 - 3.2 [facility] x10(3)/[facility] LABORATORY Monocytes % 7.5 % [facility] LABORATORY Monocyte Abs 1.0 (H) 0.3 - 0.9 [facility] x10(3)/[facility] LABORATORY Eosinophils % 2.0 % [facility] LABORATORY Eosinophils Abs 0.3 0.0 - 0.4 [facility] x10(3)/[facility] LABORATORY Basophils % 0.3 % [facility] LABORATORY Basophils Abs 0.0 0.0 - 0.1 [facility] x10(3)/[facility] LABORATORY Immature Gran % 0.50 % [facility] LABORATORY Comment: Immature granulocytes(IG's)percentage an d absolute count will include metamyelocytes, myelocytes, and promyelo cytes. Blood smears from CBCs yielding IG's will be scanned manually for concor dance. If this scan disagrees with the automated IG or if promyelocytes are not ed, a manual differential will be performed. Melisa Gran Abs 0.06 (H) 0.00 - 0.04 x10(3)/[facility] LABORATORY Specimen Anatomical Collection Method Collection Time Receive d Time (Source) Location / / Volume Laterality Blood specimen 08/11/2017 6:16 AM 018 6:24 (specimen) EST AM EST Resulting Agency Comment Spec In Lab Yonathan Smith MD HEMATOLOGY ORDERABLES Performing Organization Address City/State/[place] [address] (ABNORMAL) Hemogram (08/11/2017 6:16 AM EST) Analysis Performed At Patho logist Time Signature WBC 12.9 (H) 4.0 - 9.5 [facility] x10(3)/[facility] LABORATORY RBC 3.28 (L) 4.58 - [facility] x10(6)/[facility] LABORATORY Hemoglobin 9.5 (L) 13.7 - [facility] 16[facility] gm/dL [facility] LABORATORY Hematocrit 29.8 (L) 40.5 - [facility] 48.5 % [facility] MCV 90.9 82.9 - [facility] 93.1 fL [facility] MCH 29.0 27.5 - [facility] 32.1 pg [facility] MCHC 31.9 (L) 32.0 - [facility] 35.7 gm/dL [facility] Platelets 236 145 - 357 [facility] x10(3)/[facility] LABORATORY RDWSD 53.5 (H) 36.0 - [facility]0 [facility] LABORATORY RDWCV 16.3 (H) 11.4 - [facility] 13.8 % [facility]ORATORY MPV 8.8 7.6 - 12.9 [facility] LABORATORY nRBC % Auto 0.0 % [facility] LABORATORY nRBC Abs Auto 0.000 0.000 - [place] 0.000 [facility] x10(3)/[facility] LABORATORY Specimen Anatomical Collection Method Collection Time Receive d Time (Source) Location / / Volume Laterality Blood specimen 08/11/2017 6:16 AM 018 6:24 (specimen) EST AM EST Resulting Agency Comment Spec In Lab Yonathan Smith MD HEMATOLOGY ORDERABLES Performing Organization Address City/[facility] [place] [address] (ABNORMAL) Prothrombin Time (08/11/2017 6:16 AM EST) P athologist Signature PT 15.5 (H) 11.8 - 14.0 [facility] LABORATORY INR 1.3 (H) 0.9 - [...] Smith MD HEMATOLOGY ORDERABLES Performing Organization Address City/[facility] [place] [address] Basic Metabolic Panel (non-fasting) (08/11/2017 6:16 AM EST) athologist Signature Glucose Lvl 139 65 - 199 [facility] mg/dL [facility] LABORATORY Comment: Diabetes: >=200 mg/dL plus symp toms BUN 12 10 - 20 mg/dL [facility] LABORATORY Creatinine 0.91 0.80 - 1.50 mg/dL [facility] LABORATORY Sodium 138 135 - 145 [...] Gap 13 5 - 15 mmol/L [facility] LABORATORY Calcium 8.5 8.5 - 10.5 mg/dL [facility] LABORATORY Estimated GFR >60 >=60 [facility] LABORATORY Comment: The reported eGFR should be multiplied b y 1.2 for patients. The MDRD is not an appropriate measure o f renal function for patients with body mass extremes or in patients with acute kidney failure. http://[email or web address].Ferevo/DHnkdep http://zwoor.com/DHMCnkf Specimen Anatomical Collection Method Collection Time Receive d Time (Source) Location / / Volume Laterality Blood specimen 08/11/2017 6:16 AM 018 6:24 (specimen) EST AM EST Resulting Agency Comment Spec In Lab Yonathan Smith MD CHEMISTRY ORDERABLES Performing Organization Address City/State/Z[place] [address] POCT Glucose (08/11/2017 4:07 AM EST) athologist Signature POC Glucose 162 65 - 199 [facility] mg/dL [facility] LABORATORY Comment: Supplemental ranges: <140 mg/dL before meals <180 mg/dL all other times of the day Specimen Anatomical Collection Method Collection Time Receive d Time (Source) Location / / Volume Laterality Blood specimen 08/11/2017 4:07 AM 018 4:07 (specimen) EST AM EST Yonathan Smith MD POINT OF CARE TEST ORDERABLE S Performing Organization Address City/State/ZIP Code Phon e Number [address] POCT Glucose (08/10/2017 11:59 PM EST) athologist Signature POC Glucose 166 65 - 199 [place] mg/dL [facility] LABORATORY Comment: Supplemental ranges: <140 mg/dL before meals <180 mg/dL all other times of the day Specimen Anatomical Collection Method Collection Time Receive d Time (Source) Location / / Volume Laterality Blood specimen 08/10/2017 11:59 8 (specimen) PM EST 11:59 PM EST Yonathan Smith MD POINT OF CARE TEST ORDERABLE S Performing Organization Address City/State/ZIP Code Phon e Number [address] POCT Glucose (08/10/2017 8:12 PM EST) athologist Signature POC Glucose 156 65 - 199 [facility] LAB[facility] Comment: Supplemental ranges: <140 mg/dL before meals <180 mg/dL all other times of the day Specimen Anatomical Collection Method Collection Time Receive d Time (Source) Location / / Volume Laterality Blood specimen 08/10/2017 8:12 PM 018 8:12 (specimen) EST PM EST Yonathan Smith MD POINT OF CARE TEST ORDERABLE S Performing Organization Address City/State/ZIP Code Phon e Number [address] (ABNORMAL) POCT Glucose (08/10/2017 4:42 PM EST) athologist Signature POC Glucose 211 (H) 65 - 199 [facility] RYAN mg/dL [facility] LABORATORY Comment: Supplemental ranges: <140 mg/dL before meals <180 mg/dL all other times of the day Specimen Anatomical Collection Method Collection Time Receive d Time (Source) Location / / Volume Laterality Blood specimen 08/10/2017 4:42 PM 018 4:42 (specimen) EST PM EST Yonathan Smith MD POINT OF CARE TEST ORDERABLE S Performing Organization Address City/State/[place] [address] (ABNORMAL) Differential, Automated (08/10/2017 2:30 PM EST) [facility] Method Time Signature Neutrophils % 87.6 % [facility] LABORATORY Neutr Abs (ANC) 9.90 (H) 1.70 - [facility] 6.10 [facility] x10(3)/[facility] LABORATORY Lymphocytes % 4.3 % [facility] LABORATORY Lymphocytes Abs 0.5 (L) 0.9 - 3.2 [facility] x10(3)/[facility] LABORATORY Monocytes % 6.0 % [facility] LABORATORY Monocyte Abs 0.7 0.3 - 0.9 [facility] x10(3)/[facility] LABORATORY Eosinophils % 1.1 % [facility] LABORATORY Eosinophils Abs 0.1 0.0 - 0.4 [facility] x10(3)/[facility] LABORATORY Basophils % 0.4 % [facility] LABORATORY Basophils Abs 0.0 0.0 - 0.1 [facility] x10(3)/[facility] LABORATORY Immature Gran % 0.60 % [facility] [...] Gran Abs 0.07 (H) 0.00 - 0.04 x10(3)/[facility] LABORATORY Specimen Anatomical Collection Method Collection Time Receive d Time (Source) Location / / Volume Laterality Blood specimen 08/10/2017 2:30 PM 018 2:48 (specimen) EST PM EST Resulting Agency Comment Spec In Lab Yonathan Smith MD HEMATOLOGY ORDERABLES Performing Organization Address City/State/[place] [address] (ABNORMAL) Hemogram (08/10/2017 2:30 PM EST) Analysis Performed At Patho logist Time Signature WBC 11.3 (H) 4.0 - 9.5 [facility](3[facility] LABORATORY RBC 3.13 (L) 4.58 - [place] 5.54 [facility] x10(6)/[facility] LABORATORY Hemoglobin 8.9 (L) 13.7 - [facility] 16.5 gm/dL [facility] LAB[facility] Hematocrit 28.4 (L) 40.5 - [facility] 48.5 % [facility] MCV 90.7 82.9 - [facility] LABORATORY MCH 28.4 27.5 - [place] RYAN 32.1 pg [facility] LABORATORY MCHC 31.3 (L) 32.0 - [place] R[place] 35.7 gm/dL [facility] LAB[facility] Platelets 213 145 - 357 [facility] x10(3)/[facility] LABORATORY RDWSD 53.7 (H) 36.0 - [facility] 45.0 [facility] LABORATORY RDWCV 16.4 (H) 11.4 - [facility] RYAN 13.8 % [facility] LABORATORY MPV 8.9 7.6 - 12.9 [facility] LABORATORY nRBC % Auto 0.0 % [facility] LABORATORY nRBC Abs Auto 0.000 0.000 - [place] R[place] 0.000 [facility] x10(3)/[facility] LABORATORY Specimen Anatomical Collection Method Collection Time Receive d Time (Source) Location / / Volume Laterality Blood specimen 08/10/2017 2:30 PM 018 2:48 (specimen) EST PM EST Resulting Agency Comment Spec In Lab Yonathan Smith MD HEMATOLOGY ORDERABLES Performing Organization Address City/State/Z[place] [address] (ABNORMAL) POCT Glucose (08/10/2017 1:50 PM EST) athologist Signature POC Glucose 243 (H) 65 - 199 [facility]dL [facility] Comment: Supplemental ranges: <140 mg/dL before meals <180 mg/dL all other times of the day Specimen Anatomical Collection Method Collection Time Receive d Time (Source) Location / / Volume Laterality Blood specimen 08/10/2017 1:50 PM 018 1:50 (specimen) EST PM EST Yonathan Smith MD POINT OF CARE TEST ORDERABLE S Performing Organization Address City/State/ZIP Code Phon e Number [address] POCT Glucose (08/10/2017 11:21 AM EST) athologist Signature POC Glucose 156 65 - 199 [facility] Comment: Supplemental ranges: [...] [facility]/ZIP Code Phon e Number [address] (ABNORMAL) Differential, Automated (08/10/2017 10:28 AM EST) [facility] gist Method Time Signature Neutrophils % 85.3 % [facility] LABORATORY Neutr Abs (ANC) 9.43 (H) 1.70 - [facility] 6.10 [facility] x10(3)/[facility] L LABORATORY Lymphocytes % 5.5 % [facility] LABORATORY Lymphocytes Abs 0.6 (L) 0.9 - 3.2 [facility] x10(3)/[facility] LABORATORY Monocytes % 5.9 % [facility] LABORATORY Monocyte Abs 0.6 0.3 - 0.9 [facility] x10(3)/[facility] LABORATORY Eosinophils % 2.1 % [facility] LABORATORY Eosinophils Abs 0.2 0.0 - 0.4 [facility] x10(3)/[facility] LABORATORY Basophils % 0.4 % [facility] LABORATORY Basophils Abs 0.0 0.0 - 0.1 [facility] x10(3)/[facility] LABORATORY Immature Gran % 0.80 % [facility] LABORATORY Comment: Immature granulocytes(IG's)percentage an d absolute count will include metamyelocytes, myelocytes, and promyelo cytes. Blood smears from CBCs yielding IG's will be scanned manually for concor dance. If this scan disagrees with the automated IG or if promyelocytes are not ed, a manual differential will be performed. Melisa Gran Abs 0.09 (H) 0.00 - 0.04 x10(3)/[facility] LABORATORY Specimen Anatomical Collection Method Collection Time Receive d Time (Source) Location / / Volume Laterality Blood specimen 08/10/2017 10:28 8 (specimen) AM EST 10:35 AM EST Resulting Agency Comment Spec In Lab Yonathan Smith MD HEMATOLOGY ORDERABLES Performing Organization Address City/State/[place] [address] (ABNORMAL) Hemogram (08/10/2017 10:28 AM EST) Analysis Performed At Patho logist Time Signature WBC 11.0 (H) 4.0 - 9.5 [facility] x10(3)/[facility] LABORATORY RBC 3.02 (L) 4.58 - [facility] 5.54 [facility] x10(6)/[facility] LABORATORY Hemoglobin 8.8 (L) 13.7 - [facility] 16.5 gm/dL [facility] LABOR[facility] Hematocrit 28.1 (L) 40.5 - [facility] 48.5 % [facility] MCV 93.0 82.9 - [facility] 93.1 fL [facility] MCH 29.1 27.5 - [facility] 32.1 pg [facility] MCHC 31.3 (L) 32.0 - [facility] 35.7 gm/dL [facility] Platelets 207 145 - 357 [facility] x10(3)/[facility] LABORATORY RDWSD 55.3 (H) 36.0 - BAR[facility] DAVIS 45.0 [facility] LABORATORY RDWCV 16.4 (H) 11.4 - [place] RYAN 13.8 % [facility] MPV 9.0 7.6 - 12.9 [place] RYAN [facility] LABORATORY nRBC % Auto 0.0 % [facility] nRBC Abs Auto 0.000 0.000 - [place] DAVIS 0.000 [facility] x10(3)/[facility] LABORATORY Specimen Anatomical Collection Method Collection Time Receive d Time (Source) Location / / Volume Laterality Blood specimen 08/10/2017 10:28 8 (specimen) AM EST 10:35 AM EST Resulting Agency Comment Spec In Lab Yonathan Smith MD HEMATOLOGY ORDERABLES Performing Organization Address City/State/[place] [address] VS Angiogram/intervention (vascular) (08/10/2017 [...] 5. Completion RLE angiogram 6. L [employer] angiogram 7. 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 - L [employer] angriogram demonstrated: High fe moral bifurcation over the proximal half of the femoral head. L [employer] access in the distal L [employer]. - Closure device: Mynx Technical Procedure: ?The [...] for a 45cm 5F Destination. V18 and [place] a nd QuickCross catheters were used to [...] Access appeared in the distal R [employer]. Closure and sheath removal was performed with [...] 5. Completion RLE angiogram 6. L [employer] angiogram 7. 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 - L [employer] angriogram demonstrated: High fe moral bifurcation over the proximal half of the femoral head. L [employer] access in the distal L [employer]. - Closure device: Mynx Technical Procedure: The [...] for a 45cm 5F Destination. V18 and [place] a nd QuickCross catheters were used to [...] Access appeared in the distal R [employer]. Closure and sheath removal was performed with [...] (ABNORMAL) Differential, Automated (08/10/2017 5:50 AM EST) [facility] Method Time Signature Neutrophils % 80.1 % [facility] LABORATORY Neutr Abs (ANC) 9.01 (H) 1.70 - [facility] 6.10 [facility] x10(3)/[facility] LABORATORY Lymphocytes % 8.8 % [facility] LABORATORY Lymphocytes Abs 1.0 0.9 - 3.2 [facility] x10(3)/[facility] LABORATORY Monocytes % 8.3 % [facility] LABORATORY Monocyte Abs 0.9 0.3 - 0.9 [facility] x10(3)/[facility] LABORATORY Eosinophils % 2.0 % [facility] LABORATORY Eosinophils Abs 0.2 0.0 - 0.4 [facility] x10(3)/[facility] LABORATORY Basophils % 0.4 % [facility] LABORATORY Basophils Abs 0.0 0.0 - 0.1 [facility] x10(3)/[facility] LABORATORY Immature Gran % 0.40 % [...] Abs 0.05 (H) 0.00 - 0.04 x10(3)/[facility] LABORATORY Specimen Anatomical Collection Method Collection Time Receive d Time (Source) Location / / Volume Laterality Blood specimen 08/10/2017 5:50 AM 018 5:59 (specimen) EST AM EST Resulting Agency Comment Spec In Lab Yonathan Smith MD HEMATOLOGY ORDERABLES Performing Organization Address City/State/[place] [address] (ABNORMAL) Hemogram (08/10/2017 5:50 AM EST) Analysis Performed At Patho logist Time Signature WBC 11.3 (H) 4.0 - 9.5 [facility] x10(3)/[facility] LABORATORY RBC 3.15 (L) 4.58 - [facility] 5.54 [facility] x10(6)/[facility] LABORATORY Hemoglobin 8.9 (L) 13.7 - [facility] 16.5 gm/dL [facility] Hematocrit 29.0 (L) 40.5 - [facility] 48.5 % [facility] MCV 92.1 82.9 - [facility] 93[facility]1 [facility] LABORATORY MCH 28.3 27.5 - [facility] 32.1 pg [facility] MCHC 30.7 (L) 32.0 - [facility] 35.7 gm/dL [facility] Platelets 231 145 - 357 [facility] x10(3)/[facility] LABORATORY RDWSD 53.9 (H) 36.0 - [facility] RYAN 45.0 [facility] LABORATORY RDWCV 16.2 (H) 11.4 - [facility] RYAN 13.8 % [facility]OR[facility] MPV 8.7 7.6 - 12.9 [facility] LABORATORY nRBC % Auto 0.0 % [facility] LABORATORY nRBC Abs Auto 0.000 0.000 - [facility] 0.000 [facility] x10(3)/[facility] LABORATORY Specimen Anatomical Collection Method Collection Time Receive d Time (Source) Location / / Volume Laterality Blood specimen 08/10/2017 5:50 AM 018 5:59 (specimen) EST AM EST Resulting Agency Comment Spec In Lab Yonathan Smith MD HEMATOLOGY ORDERABLES Performing Organization Address City/State/[place] [address] (ABNORMAL) Basic Metabolic Panel (non-fasting) (08/10/2017 5:50 AM EST) athologist Signature Glucose Lvl 135 65 - 199 [facility] mg/dL [facility] Comment: Diabetes: >=200 mg/dL plus symp toms BUN 17 10 - 20 mg/dL [facility] LABORATORY Creatinine 1.05 0.80 - 1.50 mg/dL [facility] LABORATORY [...] Gap 13 5 - 15 mmol/L [facility] LABORATORY Calcium 8.1 (L) 8.5 - 10.5 mg/dL [facility] LABORATORY Estimated GFR >60 >=60 [facility] LABORATORY Comment: The reported eGFR should be multiplied b y 1.2 for patients. The MDRD is not an appropriate measure o f renal function for patients with body mass extremes or in patients with acute kidney failure. http://Sohu.com.Ferevo/DHnkdep http://zwoor.com/DHMCnkf Specimen Anatomical Collection Method Collection Time Receive d Time (Source) Location / / Volume Laterality Blood specimen 08/10/2017 5:50 AM 018 5:59 (specimen) EST AM EST Resulting Agency Comment Spec In Lab Yonathan Smith MD CHEMISTRY ORDERABLES Performing Organization Address City/State/[place] [address] (ABNORMAL) Prothrombin Time (08/10/2017 5:50 AM EST) athologist Signature PT 16.8 (H) 11.8 - 14.0 [facility] LABORATORY INR 1.4 (H) 0.9 - 1.1 [facility] Smith MD HEMATOLOGY ORDERABLES Performing Organization Address City/[facility]/[place]IP [place] [address] (ABNORMAL) POCT Glucose (08/10/2017 4:01 AM EST) athologist Signature POC Glucose 206 (H) 65 - 199 [facility] RYAN mg/dL [facility] Comment: Supplemental [...] [facility]/[place] [address] POCT Glucose (08/10/2017 2:01 AM EST) athologist Signature POC Glucose 188 65 - 199 [facility] RYAN mg/dL [facility] Comment: Supplemental ranges: <140 mg/dL before meals <180 mg/dL all other times of the day Specimen Anatomical Collection Method Collection Time Receive d Time (Source) Location / / Volume Laterality Blood specimen 08/10/2017 2:01 AM 018 2:01 (specimen) EST AM EST Yonathan Smith MD POINT OF CARE TEST ORDERABLE S Performing Organization Address City/State/[place] [address] (ABNORMAL) POCT Glucose (08/09/2017 11:42 PM EST) P athologist Signature POC Glucose 283 (H) 65 - 199 [facility] mg/dL [facility] Comment: Supplemental ranges: <140 mg/dL before meals <180 mg/dL all other times of the day Specimen Anatomical Collection Method Collection Time Receive d Time (Source) Location / / Volume Laterality Blood specimen 08/09/2017 11:42 8 (specimen) PM EST 11:42 PM EST Yonathan Smith MD POINT OF CARE TEST ORDERABLE S Performing Organization Address City/State/[place] [address] POCT Glucose (08/09/2017 8:55 PM EST) P athologist Signature POC Glucose 182 65 - 199 [facility] Comment: Supplemental ranges: <140 mg/dL before meals <180 mg/dL all other times of the day Specimen Anatomical Collection Method Collection Time Receive d Time (Source) Location / / Volume Laterality Blood specimen 08/09/2017 8:55 PM 018 8:55 (specimen) EST PM EST Yonathan Smith MD POINT OF CARE TEST ORDERABLE S Performing Organization Address City/State/[place] [address] (ABNORMAL) APTT (08/09/2017 6:42 PM EST) P athologist Signature PTT 90 (H) 25 - 35 sec [facility] LABORATORY Comment: The recommended therapeutic range for fu ll dose, unfractionated heparin at [facility] is 80 ? 114 seconds. The use [...] Organization Address City/State/ZIP Code Phon e Number [address] POCT Glucose (08/09/2017 4:41 PM EST) athologist Signature POC Glucose 195 65 - 199 [facility] mg/dL [facility] Comment: Supplemental ranges: [...] [facility]/ZIP Code Phon e Number [address] POCT Glucose (08/09/2017 12:29 PM EST) athologist Signature POC Glucose 140 65 - 199 [facility] mg/dL [facility] Comment: Supplemental ranges: <140 mg/dL before meals <180 mg/dL all other times of the day Specimen Anatomical Collection Method Collection Time Receive d Time (Source) Location / / Volume Laterality Blood specimen 08/09/2017 12:29 8 (specimen) PM EST 12:29 PM EST Yonathan Smith MD POINT OF CARE TEST ORDERABLE S Performing Organization Address City/State/ZIP Code Phon e Number [address] POCT Glucose (08/09/2017 9:59 AM EST) athologist Signature POC Glucose 135 65 - 199 [facility] mg/dL [facility] Comment: Supplemental ranges: [...] [facility]/[place] [address] Specimen to Pathology (08/09/2017 8:41 AM EST) Specimen Anatomical Collection Method Collection Time Receive d Time (Source) Location / / Volume Laterality AP Specimen 08/09/2017 8:41 AM 8 8:41 EST AM EST Narrative [facility] LABORAT ORY - 08/09/2017 8:41 AM EST Specimen requisition ordered. ??Separate Pathology report to follow Yonathan Smith MD PATHOLOGY/CYTOLOGY ORDERABLE S Performing Organization Address City/State/[place] [address] Surgical Pathology Report (08/09/2017 8:40 AM EST) Component Value Ref Test Analysis Performed At [facility] gist Range Method Time Signature Surgical [id number] ? Location: [facility]; [facility]; A [facility] Report The signing pathologist has (i) examined the relevant preparation(s) for the [facility] specimen(s) and (ii) rendered or confirmed the diagnosis(es) . HOSPITAL LABORATORY . 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 ?Viable proximal resection margins. Electronically signed by: ??Manjit STRANGE, Henrique Flower Verified: ??08/13/2017 ?Pathologist Performed at: ??-[facility] Dept. of Pathology, [place], [place] CLINICAL INFORMATION Specimen Submitted: A - [...] Organization Address City/State/[place] [address] Anaerobic Culture (08/09/2017 8:30 AM EST) [facility] gist Method Time Signature Anaerobic No anaerobic [facility] Culture organisms [facility] LABORATORY Specimen Anatomical Collection Method Collection Time [...] Organization Address City/State/[place] [address] (ABNORMAL) Abscess/Wound Aspirate Culture (08/09/2017 8:30 AM EST) [facility] Method Time Signature Abscess/Wound Moderate mixed BARBARA Aspirate bacterial ORISKANY Culture morphotypes [facility] normal LABORATORY cutaneous leroy (A) Gram Stain Rare White Blood Cells BARBARA Few Gram Positive Cocci in pairs ORISKANY () [facility] Organism Gram Positive BARBARA Cocci in pairs ORISKANY () [facility] Specimen Anatomical Collection Method [...] - GENERAL ORDER ROBSON Performing Organization Address City/[facility]/ZIP Code Phon e Number [address] POCT Glucose (08/09/2017 4:28 AM EST) P athologist Signature POC Glucose 128 65 - 199 [facility] mg/dL [facility] Comment: Supplemental ranges: [...] [facility]/ZIP Code Phon e Number [address] ABORH Recheck Status (08/09/2017 1:10 AM EST) [facility] Method Time Signature ABORH Type Completed [facility] LABORATORY Specimen Anatomical Collection Method Collection Time Receive d Time (Source) Location / / Volume Laterality Blood specimen 08/09/2017 1:10 AM 018 1:35 (specimen) EST AM EST Resulting Agency Comment Spec In Lab Yonathan Smith MD BLOOD BANK ORDERABLES Performing Organization Address City/[facility]/[place]IP [place] [address] Antibody screen (08/09/2017 1:10 AM EST) Patholo gist Method Time Signature Ab Screen Negative [facility] LABORATORY Expires at 08/12/2017 [facility] [id number] on: [facility] LABOR[facility]ORY Specimen Anatomical Collection Method Collection Time Receive d Time (Source) Location / / Volume Laterality Blood specimen 08/09/2017 1:10 AM 018 1:35 (specimen) EST AM EST Resulting Agency Comment Spec In Lab Yonathan Smith MD BLOOD BANK ORDERABLES Performing Organization Address City/[facility]/ZIP Code Phon e Number [address] ABO/Rh Typing (08/09/2017 1:10 [...] ORDERABLES Performing Organization Address City/[facility] [place] [address] (ABNORMAL) APTT (08/09/2017 1:10 AM EST) P athologist Signature PTT 86 (H) 25 - 35 sec [facility] LABORATORY Comment: The recommended therapeutic range for fu ll dose, unfractionated heparin at [facility] is 80 ? 114 seconds. The use [...] Organization Address City/State/[place] [address] (ABNORMAL) Differential, Automated (08/09/2017 1:10 AM EST) [facility] Method Time Signature Neutrophils % 76.2 % [facility] LABORATORY Neutr Abs (ANC) 8.59 (H) 1.70 - [facility] 6.10 [facility] x10(3)/[facility] LABORATORY Lymphocytes % 11.0 % [facility] LABORATORY Lymphocytes Abs 1.2 0.9 - 3.2 [facility] x10(3)/[facility] LABORATORY Monocytes % 8.4 % [facility] LABORATORY Monocyte Abs 1.0 (H) 0.3 - 0.9 [facility] x10(3)/[facility] LABORATORY Eosinophils % 3.5 % [facility] LABORATORY Eosinophils Abs 0.4 0.0 - 0.4 [facility] x10(3)/[facility] LABORATORY Basophils % 0.5 % [facility] LABORATORY Basophils Abs 0.1 0.0 - 0.1 [facility] x10(3)/[facility] LABORATORY Immature Gran % 0.40 % [...] Abs 0.05 (H) 0.00 - 0.04 x10(3)/[facility] LABORATORY Specimen Anatomical Collection Method Collection Time Receive d Time (Source) Location / / Volume Laterality Blood specimen 08/09/2017 1:10 AM 018 1:19 (specimen) EST AM EST Resulting Agency Comment Spec In Lab Yonathan Smith MD HEMATOLOGY ORDERABLES Performing Organization Address City/State/ZIP Code Phon e Number [place] [id number] HOSPITAL LAB[address]ORY Drive (ABNORMAL) Hemogram (08/09/2017 1:10 AM EST) Analysis Performed At Patho logist Time Signature WBC 11.3 (H) 4.0 - 9.5 [facility](3[facility] LABORATORY RBC 3.47 (L) 4.58 - BARBARA RYAN 5.54 [facility] x10(6)/[facility] LABORATORY Hemoglobin 10.0 (L) 13.7 - [facility] 16.5 gm/dL [facility] Hematocrit 31.9 (L) 40.5 - [facility] 48.5 % [facility] MCV 91.9 82.9 - [facility] 93.1 [facility] LABORATORY MCH 28.8 27.5 - [facility] 32.1 pg [facility] MCHC 31.3 (L) 32.0 - [facility] 35.7 gm/dL [facility] Platelets 234 145 - 357 [facility] x10(3)/[facility] LABORATORY RDWSD 54.0 (H) 36.0 - [facility] 45.0 [facility] LABORATORY RDWCV 16.2 (H) 11.4 - [facility] 13.8 % [facility]ORAT[facility] MPV 8.7 7.6 - 12.9 [facility] LABORATORY nRBC % Auto 0.0 % [facility] LABORATORY nRBC Abs Auto 0.000 0.000 - [facility] RYAN 0.000 [facility] x10(3)/[facility] LABORATORY Specimen Anatomical Collection Method Collection Time Receive d Time (Source) Location / / Volume Laterality Blood specimen 08/09/2017 1:10 AM 018 1:19 (specimen) EST AM EST Resulting Agency Comment Spec In Lab Yonathan Smith MD HEMATOLOGY ORDERABLES Performing Organization Address City/State/[place] [address] (ABNORMAL) Prothrombin Time (08/09/2017 1:10 AM EST) P athologist Signature PT 16.0 (H) 11.8 - 14.0 [facility] LABORATORY INR 1.3 (H) 0.9 - [...] Organization Address City/State/ZIP Code Phon e Number [place] [id number] HOSPITAL LAB[address]ORY Drive (ABNORMAL) Basic Metabolic Panel (non-fasting) (08/09/2017 1:10 AM EST) athologist Signature Glucose Lvl 108 65 - 199 [facility] mg/dL [facility]OR[facility] Comment: Diabetes: >=200 mg/dL plus symp toms BUN 34 (H) 10 - 20 mg/dL [facility] LABORATORY Creatinine 1.54 (H) 0.80 - 1.50 mg/dL [facility] LABORATORY Sodium 138 135 - 145 [...] Chloride 96 (L) 98 - 107 mmol/L [facility] LABORATORY CO2 29 22 - 31 mmol/L [facility] LABORATORY Anion Gap 13 5 - 15 mmol/L [facility] LABOR[facility]ORY Calcium 8.3 (L) 8.5 - 10.5 mg/dL [facility] Estimated GFR 45 (L) >=60 [facility] Comment: The reported eGFR should be multiplied b y 1.2 for patients. The MDRD is not an appropriate measure o f renal function for patients with body mass extremes or in patients with acute kidney failure. http://zwoor.com/DHnkdep http://zwoor.com/DHMCnkf Specimen Anatomical Collection Method Collection Time Receive d Time (Source) Location / / Volume Laterality Blood specimen 08/09/2017 1:10 AM 018 1:19 (specimen) EST AM EST Resulting Agency Comment Spec In Lab Yonathan Smith MD CHEMISTRY ORDERABLES Performing Organization Address City/[facility]/ZIP Code Phon e Number [address] POCT Glucose (08/09/2017 12:05 AM EST) P athologist Signature POC Glucose 128 65 - 199 [facility]/dL [facility] Comment: Supplemental ranges: <140 mg/dL before meals <180 mg/dL all other times of the day Specimen Anatomical Collection Method Collection Time Receive d Time (Source) Location / / Volume Laterality Blood specimen 08/09/2017 12:05 8 (specimen) AM EST 12:05 AM EST Yonathan Smith MD POINT OF CARE TEST ORDERABLE S Performing Organization Address City/State/Z[place] [address] (ABNORMAL) POCT Glucose (08/08/2017 7:36 PM EST) P athologist Signature POC Glucose 215 (H) 65 - 199 [facility] Comment: Supplemental ranges: <140 mg/dL before meals <180 mg/dL all other times of the day Specimen Anatomical Collection Method Collection Time Receive d Time (Source) Location / / Volume Laterality Blood specimen 08/08/2017 7:36 PM 018 7:36 (specimen) EST PM EST Yonathan Smith MD POINT OF CARE TEST ORDERABLE S Performing Organization Address City/State/[place] [address] (ABNORMAL) POCT Glucose (08/08/2017 6:23 PM EST) athologist Signature POC Glucose 216 (H) 65 - 199 [facility] Comment: Supplemental ranges: [...] [facility]/ZIP Code Phon e Number [address] (ABNORMAL) APTT (08/08/2017 6:00 PM EST) athologist [facility] PTT 97 (H) 25 - 35 sec [facility] Comment: The recommended therapeutic range for fu ll dose, unfractionated heparin at [facility] is 80 ? 114 seconds. The use [...] Organization Address City/State/[place] [address] POCT Glucose (08/08/2017 4:42 PM EST) athologist Signature POC Glucose 78 65 - 199 [facility] Comment: Supplemental ranges: [...] [facility]/[place] [address] (ABNORMAL) POCT Glucose (08/08/2017 4:01 PM EST) athologist Signature POC Glucose 58 (L) 65 - 199 [facility] Comment: Supplemental ranges: [...] [facility]/[place] [address] POCT Glucose (08/08/2017 11:51 AM EST) athologist Signature POC Glucose 90 65 - 199 [facility] Comment: Supplemental ranges: <140 mg/dL before meals <180 mg/dL all other times of the day Specimen Anatomical Collection Method Collection Time Receive d Time (Source) Location / / Volume Laterality Blood specimen 08/08/2017 11:51 8 (specimen) AM EST 11:51 AM EST Yonathan Smith MD POINT OF CARE TEST ORDERABLE S Performing Organization Address City/State/[place] [address] (ABNORMAL) APTT (08/08/2017 10:27 AM EST) athologist Signature PTT 64 (H) 25 - 35 sec [facility] Comment: The recommended therapeutic range for fu ll dose, unfractionated heparin at [facility] is 80 ? 114 seconds. The use [...] Smith MD HEMATOLOGY ORDERABLES Performing Organization Address City/[facility]/[place] [address] POCT Glucose (08/08/2017 8:02 AM EST) athologist Signature POC Glucose 178 65 - 199 [facility] mg/dL [facility] Comment: Supplemental ranges: <140 mg/dL before meals <180 mg/dL all other times of the day Specimen Anatomical Collection Method Collection Time Receive d Time (Source) Location / / Volume Laterality Blood specimen 08/08/2017 8:02 AM 018 8:02 (specimen) EST AM EST Yonathan Smith MD POINT OF CARE TEST ORDERABLE S Performing Organization Address City/[facility] [place] [address] (ABNORMAL) APTT (08/08/2017 4:51 AM EST) athologist Signature PTT >160 25 - 35 [facility] ([facility] sec [facility] Comment: Called by: HOWARD, Read back by: Melba Jaramillo, Date/Time:08/08/17 05:43. The recommended therapeutic range for fu ll dose, unfractionated heparin at [facility] is 80 ? 114 seconds. The use [...] Smith MD HEMATOLOGY ORDERABLES Performing Organization Address City/[facility]/[place] [address] (ABNORMAL) Differential, Automated (08/08/2017 4:51 AM EST) Patholo gist Method Time Signature Neutrophils % 77.9 % [facility] Neutr Abs (ANC) 8.17 (H) 1.70 - [facility] 6.10 [facility] x10(3)/[facility] LABORATORY Lymphocytes % 10.3 % [facility] Lymphocytes Abs 1.1 0.9 - 3.2 [facility] x10(3)/[facility] LABORATORY Monocytes % 7.0 % [facility] Monocyte Abs 0.7 0.3 - 0.9 [facility] x10(3)/[facility] LABORATORY Eosinophils % 3.6 % [facility] Eosinophils Abs 0.4 0.0 - 0.4 [facility] x10(3)/[facility] LABORATORY Basophils % 0.5 % [facility] Basophils Abs 0.0 0.0 - 0.1 [facility] x10(3)/[facility] LABORATORY Immature Gran % 0.70 % [facility] [...] Gran Abs 0.07 (H) 0.00 - 0.04 x10(3)/[facility] LABORATORY Specimen Anatomical Collection Method Collection Time Receive d Time (Source) Location / / Volume Laterality Blood specimen 08/08/2017 4:51 AM 018 5:14 (specimen) EST AM EST Resulting Agency Comment Spec In Lab Yonathan Smith MD HEMATOLOGY ORDERABLES Performing Organization Address City/State/[place] [address] (ABNORMAL) Hemogram (08/08/2017 4:51 AM EST) Analysis Performed At Patho logist Time Signature WBC 10.5 (H) 4.0 - 9.5 [facility] x10(3)/[facility] LABORATORY RBC 3.27 (L) 4.58 - [facility] 5.54 [facility] x10(6)/[facility] LABORATORY Hemoglobin 9.3 (L) 13.7 - [facility] 16.5 gm/dL [facility] Hematocrit 30.3 (L) 40.5 - [facility] 48.5 % [facility] MCV 92.7 82.9 - [facility] 93.1 [facility] LABORATORY MCH 28.4 27.5 - [facility] 32.1 pg [facility] MCHC 30.7 (L) 32.0 - [facility] 35.7 gm/dL [facility] Platelets 252 145 - 357 [facility] x10(3)/[facility] LABORATORY RDWSD 54.6 (H) 36.0 - [facility] 45.0 [facility] RDWCV 16.2 (H) 11.4 - [facility] 13.8 % [facility] MPV 9.1 7.6 - 12.9 [facility] LABORATORY nRBC % Auto 0.0 % [facility] nRBC Abs Auto 0.000 0.000 - [facility] 0.000 [facility] x10(3)/[facility] LABORATORY Specimen Anatomical Collection Method Collection Time Receive d Time (Source) Location / / Volume Laterality Blood specimen 08/08/2017 4:51 AM 018 5:14 (specimen) EST AM EST Resulting Agency Comment Spec In Lab Yonathan Smith MD HEMATOLOGY ORDERABLES Performing Organization Address City/State/ZIP [place] [address] (ABNORMAL) Prothrombin Time (08/08/2017 4:51 AM EST) athologist Signature PT 18.1 (H) 11.8 - 14.0 [facility] LABORATORY INR 1.5 (H) 0.9 - 1.1 [facility] [...] Organization Address City/State/ZIP Code Phon e Number [place] [id number] (ABNORMAL) Basic Metabolic Panel (non-fasting) (08/08/2017 4:51 AM EST) P athologist Signature Glucose Lvl 229 (H) 65 - 199 [facility] mg/dL [facility] Comment: Diabetes: >=200 mg/dL plus symp toms BUN 35 (H) 10 - 20 mg/dL [facility] Creatinine 1.57 (H) 0.80 - 1.50 mg/dL [facility] Sodium 136 135 - 145 [...] Chloride 94 (L) 98 - 107 mmol/L [facility] CO2 25 22 - 31 mmol/L [facility] Anion Gap 17 (H) 5 - 15 mmol/L [facility] Calcium 7.9 (L) 8.5 - 10.5 mg/dL [facility] Estimated GFR 44 (L) >=60 [facility] Comment: The reported eGFR should be multiplied b y 1.2 for patients. The MDRD is not an appropriate measure o f renal function for patients with body mass extremes or in patients with acute kidney failure. http://Sohu.com.Ferevo/DHnkdep http://Sohu.com.Ferevo/DHMCnkf Specimen Anatomical Collection Method Collection Time Receive d Time (Source) Location / / Volume Laterality Blood specimen 08/08/2017 4:51 AM 018 5:14 (specimen) EST AM EST Resulting Agency Comment Spec In Lab Yonathan Smith MD CHEMISTRY ORDERABLES Performing Organization Address City/State/ZIP Code Phon e Number [address] POCT Glucose (08/08/2017 4:20 AM EST) athologist Signature POC Glucose 193 65 - 199 [facility] Comment: Supplemental ranges: [...] [facility]/ZIP Code Phon e Number [address] POCT Glucose (08/07/2017 11:11 PM EST) athologist Signature POC Glucose 124 65 - 199 [facility]dL [facility] Comment: Supplemental ranges: [...] [facility]/ZIP Code Phon e Number [address] (ABNORMAL) APTT (08/07/2017 10:18 PM EST) athologist Signature PTT 114 (H) 25 - 35 sec [facility] Comment: The recommended therapeutic range for fu ll dose, unfractionated heparin at [facility] is 80 ? 114 seconds. The use [...] Organization Address City/State/ZIP Code Phon e Number [address] POCT Glucose (08/07/2017 8:10 PM EST) athologist Signature POC Glucose 140 65 - 199 [facility]dL [facility] Comment: Supplemental ranges: <140 mg/dL before meals <180 mg/dL all other times of the day Specimen Anatomical Collection Method Collection Time Receive d Time (Source) Location / / Volume Laterality Blood specimen 08/07/2017 8:10 PM 018 8:10 (specimen) EST PM EST Yonathan Smith MD POINT OF CARE TEST ORDERABLE S Performing Organization Address City/State/ZIP Code Phon e Number [address] POCT Glucose (08/07/2017 5:27 PM EST) athologist Signature POC Glucose 187 65 - 199 [facility]dL [facility] Comment: Supplemental ranges: <140 mg/dL before meals <180 mg/dL all other times of the day Specimen Anatomical Collection Method Collection Time Receive d Time (Source) Location / / Volume Laterality Blood specimen 08/07/2017 5:27 PM 018 5:27 (specimen) EST PM EST Yonathan Smith MD POINT OF CARE TEST ORDERABLE S Performing Organization Address City/State/[place] [address] POCT Glucose (08/07/2017 3:29 PM EST) athologist Signature POC Glucose 86 65 - 199 [facility] Comment: Supplemental ranges: <140 mg/dL before meals <180 mg/dL all other times of the day Specimen Anatomical Collection Method Collection Time Receive d Time (Source) Location / / Volume Laterality Blood specimen 08/07/2017 3:29 PM 018 3:29 (specimen) EST PM EST Yonathan Smith MD POINT OF CARE TEST ORDERABLE S Performing Organization Address City/State/[place] [address] (ABNORMAL) APTT (08/07/2017 2:50 PM EST) athologist Signature PTT 60 (H) 25 - 35 sec [facility] Comment: The recommended therapeutic range for fu ll dose, unfractionated heparin at [facility] is 80 ? 114 seconds. The use [...] Smith MD HEMATOLOGY ORDERABLES Performing Organization Address City/[facility]/[place] [address] (ABNORMAL) POCT Glucose (08/07/2017 2:23 PM EST) athologist Signature POC Glucose 55 (L) 65 - 199 [facility]dL [facility] Comment: Supplemental ranges: <140 mg/dL before meals <180 mg/dL all other times of the day Specimen Anatomical Collection Method Collection Time Receive d Time (Source) Location / / Volume Laterality Blood specimen 08/07/2017 2:23 PM 018 2:23 (specimen) EST PM EST Yonathan Smith MD POINT OF CARE TEST ORDERABLE S Performing Organization Address City/State/ZIP Code Phon e Number [place] [phone] [facility] [address] Drive POCT Glucose (08/07/2017 12:08 PM EST) P athologist Signature POC Glucose 77 65 - 199 [facility]dL [facility] Comment: Supplemental ranges: <140 mg/dL before meals <180 mg/dL all other times of the day Specimen Anatomical Collection Method Collection Time Receive d Time (Source) Location / / Volume Laterality Blood specimen 08/07/2017 12:08 8 (specimen) PM EST 12:08 PM EST Yonathan Smith MD POINT OF CARE TEST ORDERABLE S Performing Organization Address City/State/ZIP Code Phon e Number [address] (ABNORMAL) Differential, Automated (08/07/2017 7:30 AM EST) Patholo gist Method Time Signature Neutrophils % 73.8 % [facility] Neutr Abs (ANC) 7.17 (H) 1.70 - [facility] 6.10 [facility] x10(3)/[facility] LABORATORY Lymphocytes % 12.2 % [facility] Lymphocytes Abs 1.2 0.9 - 3.2 [facility] x10(3)/[facility] LABORATORY Monocytes % 9.0 % [facility] Monocyte Abs 0.9 0.3 - 0.9 [facility] x10(3)/[facility] LABORATORY Eosinophils % 3.9 % [facility] Eosinophils Abs 0.4 0.0 - 0.4 [facility] x10(3)/[facility] LABORATORY Basophils % 0.6 % [facility] Basophils Abs 0.1 0.0 - 0.1 [facility] x10(3)/[facility] LABORATORY Immature Gran % 0.50 % [facility] Comment: Immature granulocytes(IG's)percentage an d absolute count will include metamyelocytes, myelocytes, and promyelo cytes. Blood smears from CBCs yielding IG's will be scanned manually for concor dance. If this scan disagrees with the automated IG or if promyelocytes are not ed, a manual differential will be performed. Melisa Gran Abs 0.05 (H) 0.00 - 0.04 x10(3)/[facility] LABORATORY Specimen Anatomical Collection Method Collection Time Receive d Time (Source) Location / / Volume Laterality Blood specimen 08/07/2017 7:30 AM 018 7:45 (specimen) EST AM EST Resulting Agency Comment Spec In Lab Yonathan Smith MD HEMATOLOGY ORDERABLES Performing Organization Address City/State/[place] [address] (ABNORMAL) Hemogram (08/07/2017 7:30 AM EST) Analysis Performed At Patho logist Time Signature WBC 9.7 (H) 4.0 - 9.5 [facility] x10(3)/[facility] LABORATORY RBC 3.54 (L) 4.58 - [facility] 5.54 [facility] x10(6)/[facility] LABORATORY Hemoglobin 9.9 (L) 13.7 - [facility] 16.5 gm/dL [facility] Hematocrit 32.3 (L) 40.5 - [facility] 48.5 % [facility] MCV 91.2 82.9 - [facility] 93.1 [facility] LABORATORY MCH 28.0 27.5 - [facility] 32.1 pg [facility] MCHC 30.7 (L) 32.0 - [facility] 35.7 gm/dL [facility] Platelets 312 145 - 357 [facility] x10(3)/[facility] LABORATORY RDWSD 53.2 (H) 36.0 - [facility] 45.0 [facility] LABORATORY RDWCV 16.0 (H) 11.4 - [facility] RYAN 13.8 % [facility] MPV 8.9 7.6 - 12.9 [facility] LABORATORY nRBC % Auto 0.0 % [facility] nRBC Abs Auto 0.000 0.000 - [facility] RYAN 0.000 [facility] x10(3)/[facility] LABORATORY Specimen Anatomical Collection Method Collection Time Receive d Time (Source) Location / / Volume Laterality Blood specimen 08/07/2017 7:30 AM 018 7:45 (specimen) EST AM EST Resulting Agency Comment Spec In Lab Yonathan Smith MD HEMATOLOGY ORDERABLES Performing Organization Address City/State/ZIP Code Phon e Number [facility] [place] [address] (ABNORMAL) Basic Metabolic Panel (non-fasting) (08/07/2017 7:30 AM EST) athologist Signature Glucose Lvl 80 65 - 199 [facility] mg/dL [facility] Comment: Diabetes: >=200 mg/dL plus symp toms BUN 31 (H) 10 - 20 mg/dL [facility] Creatinine 1.22 0.80 - 1.50 mg/dL [facility] [...] estions. Chloride 99 98 - 107 mmol/L [facility] CO2 29 22 - 31 mmol/L [facility] Anion Gap 12 5 - 15 mmol/L [facility] Calcium 8.5 8.5 - 10.5 mg/dL [facility] Estimated GFR 59 (L) >=60 [facility] Comment: The reported eGFR should be multiplied b y 1.2 for patients. The MDRD is not an appropriate measure o f renal function for patients with body mass extremes or in patients with acute kidney failure. http://zwoor.com/DHnkdep http://zwoor.com/DHMCnkf Specimen Anatomical Collection Method Collection Time Receive d Time (Source) Location / / Volume Laterality Blood specimen 08/07/2017 7:30 AM 018 7:45 (specimen) EST AM EST Resulting Agency Comment Spec In Lab Yonathan Smith MD CHEMISTRY ORDERABLES Performing Organization Address City/[facility]/[place]IP [place] [address] POCT Glucose (08/07/2017 7:27 AM EST) athologist Signature POC Glucose 81 65 - 199 [facility] mg/dL [facility] Comment: Supplemental ranges: <140 mg/dL before meals <180 mg/dL all other times of the day Specimen Anatomical Collection Method Collection Time Receive d Time (Source) Location / / Volume Laterality Blood specimen 08/07/2017 7:27 AM 018 7:27 (specimen) EST AM EST Yonathan Smith MD POINT OF CARE TEST ORDERABLE S Performing Organization Address [facility] Phon e Number [address] APTT (08/07/2017 7:04 AM EST) athologist Signature PTT 34 25 - 35 sec [facility] Comment: The recommended therapeutic range for fu ll dose, unfractionated heparin at [facility] is 80 ? 114 seconds. The use [...] Smith MD HEMATOLOGY ORDERABLES Performing Organization Address City/[facility]/ZIP [facility] [place] [address] (ABNORMAL) Prothrombin Time (08/07/2017 7:04 AM EST) athologist Signature PT 17.3 (H) 11.8 - 14.0 [facility] LABORATORY INR 1.4 (H) 0.9 - 1.1 [facility] [...] Smith MD HEMATOLOGY ORDERABLES Performing Organization Address City/[facility]/ZIP Code Phon e Number [address] POCT Glucose (08/07/2017 4:03 AM EST) athologist Signature POC Glucose 93 65 - 199 [facility]dL [facility] Comment: Supplemental ranges: [...] [facility]/ZIP Code Phon e Number [address] POCT Glucose (08/07/2017 12:04 AM EST) athologist Signature POC Glucose 107 65 - 199 [facility] Comment: Supplemental ranges: <140 mg/dL before meals <180 mg/dL all other times of the day Specimen Anatomical Collection Method Collection Time Receive d Time (Source) Location / / Volume Laterality Blood specimen 08/07/2017 12:04 8 (specimen) AM EST 12:04 AM EST Yonathan Smith MD POINT OF CARE TEST ORDERABLE S Performing Organization Address City/State/[place] [address] POCT Glucose (08/06/2017 7:56 PM EST) P athologist Signature POC Glucose 178 65 - 199 [facility] mg/dL [facility] Comment: Supplemental ranges: <140 mg/dL before meals <180 mg/dL all other times of the day Specimen Anatomical Collection Method Collection Time Receive d Time (Source) Location / / Volume Laterality Blood specimen 08/06/2017 7:56 PM 018 7:56 (specimen) EST PM EST Yonathan Smith MD POINT OF CARE TEST ORDERABLE S Performing Organization Address City/State/ZIP [place] [address] [facility] [address] TcPO2 (08/06/2017 2:32 PM EST) Component Value Ref Test Analysis Performed At Patholo gist Range Method Time Signature VB Text Department: Vascular Surgery Lab VASCUBASE Report Patient: [id number] (GREGORY HOANG) CPT: [id number] ICD10: I99.8 Referring Physician: YONATHAN SMITH ?? [...] Chiquis Mcgrath RN)1212 (Given - Provider: Chiquis Mcrgath RN)1730 (Given - Provider: Chiquis Mcgrath RN) [...]
Routine documented in this encounter Care Teams Histologist Technologist Relationship Specialty Start Date End Date Lovely Vicente MD PCP - General 04/16/[address] [place] [address] documented as of this encounter
--- OUTSIDE RECORDS SUMMARY | 2022-02-18 08:16 | XMS_ITS | Encounter Summary ---
:1945 [place] [address] Care Team Providers Name Role Phone Lovely Vicente MD Primary Care Provider Encounter Details Date Type Department Care Team Description 08/09/2017 Clinical Support Same Day at [facility] Canceled (D-SCHED ERROR [facility] / CORRECT ION ) [place] [address] Social History Tobacco Use Types Packs/Day [...] [facility] er Cardiology Dept [place], [place] [address] (Wo rk) 03/26/2022 Office Visit Cardiology Vitaliy Nobles MD [facility] ER CARDIOLOGY [place], [place] [address] (Wo rk) documented as of this encounter Procedures Procedure Name Priority Date/Time Associated Diagnosis Comme nts HAIRSPRING INSPECTOR 08/09/2017 12:00 AM Resul ts for this SCAN EST procedure are i n the results section. documented in this encounter Results SCAN DOC: HAIRSPRING INSPECTOR (08/09/2017 12:00 AM EST) Narrative 08/09/2017 12:00 AM EST This result has an attachment that is no t available. Ordered by an unspecified provider. Scanning Provider MEDIA MGR SCAN EXT ORDR/RSLT documented in this encounter Visit Diagnoses Not on filedocumented in this encounter Care Teams Lasting Room Machine Operator Relationship Specialty Start Date End Date Lovely Vicente MD PCP - General 04/16/15 [facility] [address] [place] [address] documented as of this encounter
--- OUTSIDE RECORDS SUMMARY | 2022-02-18 08:17 | XMS_ITS | Encounter Summary ---
:1945 [place] [address] Care Team Providers Name Role Phone Lovely Vicente MD Primary Care Provider Encounter Details Date Type Department Care Team Description 08/04/2017 Notes Only Cardiac Surgery Makayla Wilson [place] [facility] [place] [address] CARDIAC SURGERY [phone] [place], [place] [address] (Wo rk) Social History Tobacco [...] Poole [facility] [place] [place] [address] (Wo rk) 03/26/2022 Office Visit Cardiology Vitaliy Nobles MD [facility] ER CARDIOLOGY [place], [place] [address] (Wo rk) documented as of this encounter Visit Diagnoses Not on filedocumented in this encounter Care Teams Supervisor [employer]n Relationship Specialty Start Date End Date Lovely Vicente MD PCP - General 04/16/[address] [place] [address] documented as of this encounter
--- OUTSIDE RECORDS SUMMARY | 2022-02-18 08:17 | XMS_ITS | Encounter Summary ---
:1945 Author Organization [facility] [place] [place] [address] Care Team Providers Name Role Phone Lovely Vicente MD Primary Care Provider Reason for Visit Auth/Cert Specialty Diagnoses / Procedures Referred By Contact Refer red To Contact Diagnoses Critical lower limb ischemia CELLULITIS RT FOOT Procedures EMERGENCY Referral ID Status Reason Start Date Expiration Date Visits Requ ested Visits Authorized [id number] 1 1 Encounter Details Date Type Department Care Team Description 08/06/2017 Hospital Encounter Vascular Lab at Barbara Russo [facility] [place] [address] Social History Tobacco Use Types Packs/Day [...] PA [facility] Cardiology Dept [place], [place] [address] (Wo rk) 03/26/2022 Office Visit Cardiology Vitaliy Nobles MD [facility] CARDIOLOGY [place], [place] [address] (Wo rk) documented as of this encounter Visit Diagnoses Not on filedocumented in this encounter Care Teams Certified Paralegal Relationship Specialty Start Date End Date Lovely Vicente MD PCP - General 04/16/[address] [place] [address] documented as of this encounter
--- OUTSIDE RECORDS SUMMARY | 2022-02-18 08:17 | XMS_ITS | Encounter Summary ---
:1945 Author Organization [facility] Address [facility] [address] [place] [address] Care Team Providers Name Role Phone Lovely Vicente MD Primary Care Provider Reason for Visit Auth/Cert Specialty Diagnoses / Procedures Referred By Contact Refer red To Contact Diagnoses Critical lower limb ischemia CELLULITIS RT FOOT Procedures EMERGENCY Referral ID Status Reason Start Date Expiration Date Visits Requ ested Visits Authorized [id number] 1 1 Encounter Details Date Type Department Care Team Description 08/04/2017 Laboratory Lab 3L [place] Cardiomyopathy, unspecified type; Appointment [facility] Systolic congestive heart failure, unspecified congestive heart failure chronicity; Hospital Coronary artery rupture; [facility] Ischemic cardiomyopathy; Drive Atherosclerosis of [place] co ronary artery, angina presence unspecified, unspecified whether [place] or transplanted heart; [place], [place] Essential hyper tension, malignant; [phone] 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 PROTHROMBIN TIME Routine 08/04/2017 12:55 Coronary artery Resu lts for this PM EST rupture procedure are in Ischemic the results cardiomyopathy section. Atherosclerosis of [place] coronary artery, angina presence unspecified, unspecified whether [place] or transplanted heart URIC ACID Routine 08/04/2017 [...] with the results diabetic section. nephropathy, unspecified nursing home insulin use status Essential hypertension, malignant COMPREHENSIVE Routine 08/04/2017 12:55 Essential Results fo r this METABOLIC PANEL PM EST hypertension, procedure a re in (NON-FASTING) malignant the results section. documented in this encounter Results Uric acid (08/04/2017 12:55 PM EST) athologist Signature Uric Acid 7.1 3.5 - 8.5 [facility] mg/dL [facility] Specimen Anatomical Collection Method Collection Time Receive d Time (Source) Location / / Volume Laterality Blood specimen 08/04/2017 12:55 8 1:01 (specimen) PM EST PM EST Resulting Agency Comment Spec In Lab Lovely Vicente MD CHEMISTRY ORDERABLES Performing Organization Address City/State/ZIP [place] [address] (ABNORMAL) Hemogram (08/04/2017 12:55 PM EST) Analysis Performed At Patho logist Time Signature WBC 15.8 (H) 4.0 - 9.5 [facility] x10(3)/[facility] LABORATORY RBC 3.48 (L) 4.58 - [facility] 5.54 [facility] x10(6)/[facility] LABORATORY Hemoglobin 9.9 (L) 13.7 - [facility] 16.5 gm/dL [facility] Hematocrit 31.4 (L) 40.5 - [facility] 48.5 % [facility] MCV 90.2 82.9 - [facility] 93.1 [facility] LABORATORY MCH 28.4 27.5 - [place] RYAN 32.1 pg [facility] MCHC 31.5 (L) 32.0 - [facility] 35.7 gm/dL [facility] Platelets 310 145 - 357 [facility] x10(3)/[facility] LABORATORY RDWSD 51.8 (H) 36.0 - [facility] 45.0 [facility] LABORATORY RDWCV 15.8 (H) 11.4 - [facility] 13.8 % [facility] MPV 8.9 7.6 - 12.9 [facility] LABORATORY nRBC % Auto 0.0 % [facility] nRBC Abs Auto 0.000 0.000 - [facility] 0.000 [facility] x10(3)/[facility] LABORATORY Specimen Anatomical Collection Method Collection Time Receive d Time (Source) Location / / Volume Laterality Blood specimen 08/04/2017 12:55 8 1:01 (specimen) PM EST PM EST Resulting Agency Comment Spec In Lab Lovely Vicente MD HEMATOLOGY ORDERABLES Performing Organization Address City/State/Z[place] [address] (ABNORMAL) Comprehensive metabolic panel (non-fasting) (08/04/2017 12:55 PM EST) P athologist Signature Glucose Lvl 208 (H) 65 - 199 [facility] mg/dL [facility] Comment: Diabetes: >=200 mg/dL plus symp toms BUN 32 (H) 10 - 20 mg/dL [facility] Creatinine 1.58 (H) 0.80 - 1.50 mg/dL [facility] Sodium 136 135 - 145 mmol/L [facility] Potassium 5.5 (H) 3.5 - 5.0 mmol/L [facility] Comment: Please note: ??Patients with WBC >100,00 0 may have falsely elevated Potassium levels. ??For accurate Potassium quantif ication in these patients send serum separator tube (gold top) for subsequent determinations. ??Contact the Clinical Chemistry Laboratory if there are any qu estions. Chloride 97 (L) 98 - 107 mmol/L [facility] CO2 25 22 - 31 mmol/L [facility] Anion Gap 14 5 - 15 mmol/L [facility] Calcium 8.6 8.5 - 10.5 mg/dL [facility] Total Protein 6.9 6.1 - 8.0 gm/dL [facility] Albumin 3.4 3.2 - 5.2 gm/dL [facility] AST 20 0 - 39 unit/L [facility] ALT 21 0 - 55 unit/L [facility] Alk Phos 93 40 - 120 unit/L [facility] Total Bilirubin 0.4 0.2 - 1.3 mg/dL [facility] Estimated GFR 43 (L) >=60 [facility] Comment: The reported eGFR should be multiplied b y 1.2 for patients. The MDRD is not an appropriate measure o f renal function for patients with body mass extremes or in patients with acute kidney failure. http://Koemei.WebVisible/DHnkdep http://Nu-Med Plus/DHnkf Specimen Anatomical Collection Method Collection Time Receive d Time (Source) Location / / Volume Laterality Blood specimen 08/04/2017 12:55 8 1:01 (specimen) PM EST PM EST Resulting Agency Comment Spec In Lab Lovely Vicente MD CHEMISTRY ORDERABLES Performing Organization Address City/State/ZIP Code Phon e Number [place] [phone] (ABNORMAL) Hemoglobin A1c (08/04/2017 12:55 PM EST) Analysis Performed At Patho [facility] Time Signature Hemoglobin A1C 6.2 (H) 4.3 - 5.6 [facility] Comment: Reference Range: 4.3 - [...] Mellitus, Diabetes Care 2013; 36: Suppl. 1, Z77-27 Est Avg Gluc See note mg/dL [facility] [...] into estimated average glucose values. ??Diabetes Care 2008:31(8):9735-8354. Specimen Anatomical Collection Method Collection Time Receive d Time (Source) Location / / Volume Laterality Blood specimen 08/04/2017 12:55 8 1:01 (specimen) PM EST PM EST Resulting Agency Comment Spec In Lab Lovely Vicente MD CHEMISTRY ORDERABLES Performing Organization Address [facility] [place] [address] (ABNORMAL) Prothrombin Time (08/04/2017 12:55 PM EST) P athologist Signature PT 35.4 (H) 11.8 - 14.0 [facility] LABORATORY INR 3.5 (H) 0.9 - 1.1 [facility] [...] Vicente MD HEMATOLOGY ORDERABLES Performing Organization Address [facility] [place] [address] (ABNORMAL) pro-Brain Natriuretic Peptide (08/04/2017 12:55 PM EST) P athologist Signature ProBNP 3,133 (H) <=125 [facility] pg/mL [facility] Specimen Anatomical Collection Method Collection Time Receive d Time (Source) Location / / Volume Laterality Blood specimen 08/04/2017 12:55 8 1:01 (specimen) PM EST PM EST Resulting Agency Comment Spec In Lab Danette Maxwell APRN CHEMISTRY ORDERABLES Performing Organization Address City/State/ZIP Code [place] [address] documented in this encounter Visit Diagnoses Diagnosis Cardiomyopathy, unspecified type Systolic congestive heart failure, unspe cified congestive heart failure chronicity Coronary artery rupture Acute myocardial infarction, unspecified site, episode of care unspecified Ischemic cardiomyopathy Other specified forms of chronic ischemi c heart disease Atherosclerosis of [place] coronary arter y, angina presence unspecified, unspecified whether [place] or transplanted heart Essential hypertension, malignant Diabetes mellitus due to underlying cond ition with diabetic nephropathy, unspecified nursing home insulin use status Chronic systolic heart failure documented in this encounter Care Teams Berry Picker Relationship Specialty Start Date End Date Lovely Vicente MD PCP - General 04/16/[address] [place] [address] documented as of this encounter
--- OUTSIDE RECORDS SUMMARY | 2022-02-18 08:17 | XMS_ITS | Encounter Summary ---
:1945 [place] [address] Care Team Providers Name Role Phone Lovely Vicente MD Primary Care Provider Encounter Details Date Type Department Care Team Description 08/04/2017 Notes Only Pain Management at Barbra Bruno, STACIE [facility] [place] [address] [place] [address] [phone] (Wo rk) Social History Tobacco Use Types [...] bid) at this time. Barbra Soares, MSN, FINANCE CONSULTANT-BC, [facility] documented in this encounter Plan of Treatment Upcoming Encounters Date Type Specialty Care Team Description 02/19/2022 Laboratory Appointment Lab 02/19/2022 Office Visit Cardiology Liz Poole PA [facility] er Cardiology [place], [place] [address] (Wo rk) 03/26/2022 Office Visit Cardiology Vitaliy Nobles MD [facility] ER CARDIOLOGY [place], [place] [address] (Wo rk) documented as of this encounter Visit Diagnoses Not on filedocumented in this encounter Care Teams Consultant Nurse Relationship Specialty Start Date End Date Lovely Vicente MD PCP - General 04/16/[address] [place] [address] documented as of this encounter
--- OUTSIDE RECORDS SUMMARY | 2022-02-18 08:17 | XMS_ITS | Encounter Summary ---
:1945 [place] [address] Care Team Providers Name Role Phone Lovely Vicente MD Primary Care Provider Encounter Details Date Type Department Care Team Description 08/03/2017 Hospital Encounter Radiology Library at [place], Tommy Mijares [facility] [place] [address] VASCULAR SURGERY [phone] [place], [place] [address] (Wo rk) Social History Tobacco [...] Poole PA [facility] Cardiology Dept [place], [place] [address] (Wo rk) 03/26/2022 Office Visit Cardiology Vitaliy Nobles MD [facility] CARDIOLOGY [place], [place] [address] (Wo rk) documented as of [...] Organization Address City/State/ZIP Code Phon e Number [place], [place] documented in this encounter Visit Diagnoses Diagnosis Pain Generalized pain Chronic systolic heart failure documented in this encounter Care Teams Cad Draftsman Relationship Specialty Start Date End Date Lovely Vicente MD PCP - General 04/16/[address] [place] [address] documented as of this encounter
--- OUTSIDE RECORDS SUMMARY | 2022-02-18 08:17 | XMS_ITS | Encounter Summary ---
:1945 [place] [address] Care Team Providers Name Role Phone Lovely Vicente MD Primary Care Provider Encounter Details Date Type Department Care Team Description 08/05/2017 Notes Only Vascular Surgery at [facility] Eden Moss, STACIE [facility] [place] [address] VASCULAR SURGERY [phone] [place], [place] [address] (Wo rk) Social History Tobacco [...] [facility] Dept [place], [place] [address] (Wo rk) 03/26/2022 Office Visit Cardiology Vitaliy Nobles MD [facility] ER CARDIOLOGY [place], [place] [address] (Wo rk) documented as of this encounter Visit Diagnoses Not on filedocumented in this encounter Care Teams Assistant Dean Relationship Specialty Start Date End Date Lovely Vicente MD PCP - General 04/16/[address] [place] [address] documented as of this encounter
--- OUTSIDE RECORDS SUMMARY | 2022-02-18 08:17 | XMS_ITS | Encounter Summary ---
:1945 [place] [address] Care Team Providers Name Role Phone Lovely Vicente MD Primary Care Provider Encounter Details Date Type Department Care Team Description 08/04/2017 Orders Only Cardiac Surgery Makayla Wilson APRN [facility] Jorge [facility] [place] [address] CARDIAC SURGERY [phone] [place], [place] [address] (Wo rk) Social History Tobacco [...] [facility] er Cardiology Dept [place], [place] [address] (Wo rk) 03/26/2022 Office Visit Cardiology Vitaliy Nobles MD [facility] CARDIOLOGY [place], [place] [address] (Wo rk) documented as of this encounter Visit Diagnoses Not on filedocumented in this encounter Care Teams Venue Coordinator Relationship Specialty Start Date End Date Lovely Vicente MD PCP - General 04/16/[address] [place] [address] [address] [facility] [address] [place] [address] documented as of this encounter
--- OUTSIDE RECORDS SUMMARY | 2022-02-18 08:17 | XMS_ITS | Encounter Summary ---
:1945 [place] [address] Care Team Providers Name Role Phone Lovely Vicente MD Primary Care Provider Reason for Visit Auth/Cert Specialty Diagnoses / Procedures Referred By Contact Refer red To Contact Diagnoses Critical lower limb ischemia CELLULITIS RT FOOT Procedures EMERGENCY Referral ID Status Reason Start Date Expiration Date Visits Requ ested Visits Authorized [id number] 1 1 Encounter Details Date Type Department Care Team Description 08/09/2017 Anesthesia Event Main Operating Room Daniele Lizama MD [facility] [place] [address] [facility] Rob Jones MD [facility] [place] [address] [place] [address] Anesthesia Record Procedure Summary Procedure Name [...] Knowles, Dory arm), right; VAMSI Rios, RN vimq-hjj-mnedlc catheter system; 20 gauge; 08/16/17; 1047 PIV 07/29/17; 1413; median 07/29/17 1413 by 08/16/17 1047 by cubital vein (antecubital Magdalene Hickey Williams, Dory fossa), left; VAMSI Wyatt, RN whdi-vly-qupcri catheter system; 20 gauge; 08/16/17; 1047 PIV 08/06/17; 1742; cephalic 08/06/17 1742 by 0920 by vein (lateral side of Taylor Laureano Danah y, Caitlyn C, arm), right; VAMSI BONNER dvkp-dvy-cqehqu catheter system; 22 gauge, 1 in length; Eliseo LAUREANO RN VAS; distraction, intradermal injection, tolerated well, appears comfortable; 0; 08/16/17; 0920 Wound 08/07/17; 1335; knee; 08/07/17 1335 by 08/16/17 1047 by laceration; wound occured Barbara Albert iams, Dory HEAVY EQUIPMENT PLUMBING SUPERVISOR; 08/16/17; 1047 VAMSI Alonzo, RN PIV 08/07/17; 1734; cephalic 08/07/17 1734 by 1047 by vein (lateral side of Kendrick, Carlos W, Willia ms, Dory arm), left; MARCIE Wyatt RN cqqg-xqe-eboqht catheter system; 22 gauge; distraction, intradermal injection, [...] Santillan MD - 08/09/2017 9:01 AM EST [facility] Department of Anesthesiology Post-procedure Note Patient: Don Fatima Procedure Summary Date Anesthesia Start Anesthesia Stop Room / Location 08/09/17 0802 0901 [facility] OR 14 / [facility] MAIN OR Procedure Diagnosis Surgeon Responsible Provider AMPUTATION, 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 Nerve [...] SETUP performed by Manny Mcknight MD at [facility] MAIN OR ??? PRO CABG, ARTERIAL, SINGLE N/A 07/07/2017 @CABG, USING ARTERIAL GRAFT;SINGLE ARTERIAL GRAFT (WRVU 33.75) performed by Yuan Retana MD at [facility] MAIN OR ??? PRO CABG, ARTERY-VEIN, TWO N/A 07/07/2017 @CABG, TWO VENOUS GRAFTS & ARTERIAL GRAFT (WRVU 7.93) performed by Yuan Retana MD at [facility] MAIN OR ??? PRO COLONOSCOPY, REMV LESN, SNARE 01/16/2014 COLONOSCOPY, POLYPECTOMY, REMOVAL LESION BY SNARE performed by Nohemi Jaimes MD at [facility] ENDOSCOPY ??? PRO ENDOSCOPY W/VIDEO-ASST VEIN HARVEST, CABG Right 07/07/2017 ENDOSCOPIC HARVEST VEIN(S) FOR CABG (WRVU 0.31) performed by Yuan Rteana MD at [facility] MAIN OR ??? PRO THYROIDECTOMY 03/28/2013 THYROIDECTOMY, TOTAL OR COMPLETE performed by Manny Mcknight MD at [facility] MAIN OR Social History Substance Use [...] adequate IV access. Brody Santillan MD PGY-2, [place] Pager #[phone] Anesthesiology Staff (Dewhirst): Pre-op summary note as [...] PA [facility] Card[facility] Dept [place], [place] [address] (Wo rk) 03/26/2022 Office Visit Cardiology Vitaliy Nobles MD [facility] ER CARDIOLOGY [place], [place] [address] (Wo rk) documented as of [...] Length: 10 cm Gauge: 21 Needle Type: T-fdlvu-dfnwm Medication injection made in crementally with aspirations. [...] Procedure) documented in this encounter Care Teams Primary Special Educator Relationship Specialty Start Date End Date Lovely Vicente MD PCP - General 04/16/[address] [place] [address] documented as of this encounter
--- OUTSIDE RECORDS SUMMARY | 2022-02-18 08:17 | XMS_ITS | Encounter Summary ---
:1945 Author Organization [facility] [place] [address] Care Team Providers Name Role Phone Lovely Vicente MD Primary Care Provider Reason for Visit Auth/Cert Specialty Diagnoses / Procedures Referred By Contact Refer red To Contact Diagnoses Critical lower limb ischemia CELLULITIS RT FOOT Procedures EMERGENCY Referral ID Status Reason Start Date Expiration Date Visits Requ ested Visits Authorized [id number] 1 1 Encounter Details Date Type Department Care Team Description 08/04/2017 [facility] [place] thrombosis of [facility] [place] [id number] Social History Tobacco Use Types Packs/Day Years [...] PA 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 documented in this encounter Results Duplex for DVT, Leg, Unilat (08/04/2017 1:08 PM EST) Component Value Ref Test Analysis Performed At [facility] Range Method Time Signature VB Text Department: Vascular Surgery Lab VASCUBASE Report Patient: [id number] (DON HOANG) CPT: 63269 ICD10: I82.541 Referring Physician: TAMIKO HUTSON ?? [...] f deep vessels of distal lower extremity Chronic systolic heart failure documented in this encounter Care Teams Program Facilitator Relationship Specialty Start Date End Date Lovely Vicente MD PCP - General 04/16/15 [address] [facility] [facility] [place] [address] documented as of this encounter
--- OUTSIDE RECORDS SUMMARY | 2022-02-18 08:17 | XMS_ITS | Encounter Summary ---
:1945 Author Organization [facility] [place] [address] Care Team Providers Name Role Phone Lovely Vicente MD Primary Care Provider Encounter Details Date Type Department Care Team Description 08/06/2017 Orders Only Vascular Surgery at [facility] [place] APRN Ischemia of foot [facility] [place] [address] VASCULAR SURGERY [phone] [place], [place] [address] (Wo rk) Social History Tobacco [...] [facility] er Cardiology Dept [place], [place] [address] (Wo rk) 03/26/2022 Office Visit Cardiology Vitaliy Nobles MD [facility] ER CARDIOLOGY [place], [place] [address] (Wo rk) documented as of [...] 444 ms MUSE SYSTEM (Bezet) Calculated P [place] 44 degrees MUSE SYSTEM Calculated R [place] -31 degrees MUSE SYSTEM Calculated T [place] 106 degrees MUSE SYSTEM INTERPRETATION Normal sinus [...] Clement MD ECG ORDERABLES Performing Organization Address City/[facility]/ZIP Code Phon e Number MUSE SYSTEM (ABNORMAL) Prealbumin (08/06/2017 12:32 PM EST) P athologist Signature Prealbumin 19 (L) 20 - 40 [facility] mg/dL [facility] Comment: Prealbumin levels are generally lower in the pediatric population; adult concentrations are usually attained near puberty. Specimen Anatomical Collection Method Collection Time Receive d Time (Source) Location / / Volume Laterality Blood specimen 08/06/2017 12:32 8 1:15 (specimen) PM EST PM EST Resulting Agency Comment Spec In Lab Arik Clement MD CHEMISTRY ORDERABLES Performing Organization Address City/[facility]/ZIP [facility] [place] [address] (ABNORMAL) Basic Metabolic Panel (non-fasting) (08/06/2017 12:32 PM EST) P athologist Signature Glucose Lvl 92 65 - 199 [facility] mg/dL [facility] Comment: Diabetes: >=200 mg/dL plus symp toms BUN 29 (H) 10 - 20 mg/dL [facility] Creatinine 1.33 0.80 - 1.50 mg/dL [facility] Sodium 138 135 - 145 mmol/L [facility] Gap 16 (H) 5 - 15 mmol/L [facility] Calcium 8.5 8.5 - 10.5 mg/dL [facility] Estimated GFR 53 (L) >=60 [facility] Comment: The reported eGFR should be multiplied b y 1.2 for patients. The MDRD is not an appropriate measure o f renal function for patients with body mass extremes or in patients with acute kidney failure. http://[employer]/DHnkdep http://[employer]Twixie.[employer]/DHMCnkf Specimen Anatomical Collection Method Collection Time Receive d Time (Source) Location / / Volume Laterality Blood specimen 08/06/2017 12:32 8 1:15 (specimen) PM EST PM EST Resulting Agency Comment Spec In Lab Arik Clement MD CHEMISTRY ORDERABLES Performing Organization Address City/State/ZIP Code Phon e Number [place] [address] (ABNORMAL) Hemogram (08/06/2017 12:32 PM EST) Analysis Performed At Patho logist Time Signature WBC 11.8 (H) 4.0 - 9.5 [facility] x10(3)/[facility] LABORATORY RBC 3.49 (L) 4.58 [facility] 5.54 [facility] x10(6)/[facility] LABORATORY Hemoglobin 9.9 (L) 13.7 - [facility] 16.5 gm/dL [facility] Hematocrit 32.0 (L) 40.5 - [facility] 48.[facility] % [facility] MCV 91.7 82.9 - [facility] 93.1 [facility] LABORATORY MCH 28.4 27.5 - [facility] 32.1 pg [facility] MCHC 30.9 (L) 32.0 - [facility] 35.7 gm/dL [facility] Platelets 326 145 - 357 [facility] x10(3)/[facility] LABORATORY RDWSD 53.4 (H) 36.0 - [facility] 45.0 [facility] LABORATORY RDWCV 16.0 (H) 11.4 - [facility] 13.8 % [facility] MPV 9.1 7.6 - 12.9 [facility] LABORATORY nRBC % Auto 0.0 % [facility] nRBC Abs Auto 0.000 0.000 - [facility] 0.000 [facility] x10(3)/[facility] LABORATORY Specimen Anatomical Collection Method Collection Time Receive d Time (Source) Location / / Volume Laterality Blood specimen 08/06/2017 12:32 8 1:15 (specimen) PM EST PM EST Resulting Agency Comment Spec In Lab Arik Clement MD HEMATOLOGY ORDERABLES Performing Organization Address City/State/[place] [address] documented in this encounter Visit Diagnoses Diagnosis Ischemia of foot Unspecified circulatory system disorder Chronic systolic heart failure documented in this encounter Care Teams [employer] Administrator Relationship Specialty Start Date End Date Lovely Vicente MD PCP - General 04/16/[address] [place] [address] documented as of this encounter
--- OUTSIDE RECORDS SUMMARY | 2022-02-18 08:17 | XMS_ITS | Encounter Summary ---
:1945 [place] [address] Care Team Providers Name Role Phone Lovely Vicente MD Primary Care Provider Encounter Details Date Type Department Care Team Description 08/04/2017 Notes Only Cardiac Surgery Makayla Wilson [employer] [facility] [place] [address] CARDIAC SURGERY [phone] [place], [place] [address] (Wo rk) Social History Tobacco [...] Liz Poole PA [facility] [place], [place] [address] (Wo rk) 03/26/2022 Office Visit Cardiology Vitaliy Nobles MD [facility] ER CARDIOLOGY [place], [place] [address] (Wo rk) documented as of this encounter Visit Diagnoses Not on filedocumented in this encounter Care Teams Floatman Relationship Specialty Start Date End Date Lovely Vicente MD PCP - General 04/16/[address] [place] [address] documented as of this encounter
--- OUTSIDE RECORDS SUMMARY | 2022-02-18 08:17 | XMS_ITS | Encounter Summary ---
:1945 Author Organization [facility] [place] [address] Care Team Providers Name Role Phone Lovely Vicente MD Primary Care Provider Reason for Visit Auth/Cert Specialty Diagnoses / Procedures Referred By Contact Refer red To Contact Diagnoses Critical lower limb ischemia CELLULITIS RT FOOT Procedures EMERGENCY Referral ID Status Reason Start Date Expiration Date Visits Requ ested Visits Authorized [id number] 1 1 Encounter Details Date Type Department Care Team Description 08/09/2017 Surgery Main Operating Room Yonathan Smith AM PUTATION, Mary Hitchcock MD TRANSMETATARSAL ([facility] 12.71) [facility] DR Siddiqu[place] [address] [place] [address] [phone] Social History Tobacco Use Types Packs/Day Years [...] 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 Patient [...] Dorsalis Pedis (Ankle) Artery ?132 ? 0.94 ??[place]aranjito-Biphasic ? Posterior Tibial (Ankle) Artery ??154 ? 1.10 ??[place]aranjito-Biphasic ? Fourth Toe ? 67 ?0.48 ?? [...] the foot. Discharge Conditions/Prognosis: Good Discharge to: [facility] Re[facility] Discharge Medications: Your Medications New Medications [...] For any problems or questions please call [phone] ZELDA Smith, stain wiper Nurse Clinician For issues on weeknights after 5pm and weekends please call [phone] and ask for the Vascular Fellow probation counselor. General Instructions None Future Appointments and Orders Future Appointments Provider Department Dept Phone 08/26/2017 4:00 PM Aurelia Rivera PA [facility] [phone] 09/07/2017 3:00 PM LAB, THREE L Lab 3L [facility] [phone] 09/07/2017 4:00 PM Luz Prescott MD Endocrinology [facility] [phone] 09/09/2017 8:00 AM Barbra Soares APRN [facility] Management [facility] [phone] Please bring a list of your current [...] For any problems or questions please call [phone] ZELDA Smith, stain wiper Nurse Clinician For issues on weeknights after 5pm and weekends please call [phone] and ask for the Vascular Fellow probation counselor. documented in this encounter Medications at [...] of Care Management Discharge Note Patient Destination: [facility] ([facility] [address] [id number] Transportation: with (at bedside) Time of Discharge: by 12 noon Level of Care: swing Patient Aware: yes Family Notified: yes Md to call report to: Yissel Quintero LOANS CONSULTANT already called RN to call report to: [phone] Shirin Wolf Office of Care Management Pager [phone] Shirin Wolf RN - 08/16/2017 10:50 AM EST [facility] has offered pt swing bed. Pt and accept bed. will transport via car. LOANS CONSULTANT Yissel Quintero aware; d/c paperwork will be completed by 12 noon. [facility] requests pt arrival by 1400 today; LOANS CONSULTANT, RN, and family aware. LOANS CONSULTANT called [facility] and was told that they prefer pt to arrive with wound vac dressing applied but clamped. LOANS CONSULTANT applied new wound vac dressing. RN has [facility] number to call report. PASSR completed; LOANS CONSULTANT paged to request provider signature in highlighted space. Indigo from [facility] notified via email that home wound vac now cancelled; [facility] has picked up from room and order cancelled. Packet started and provided to community leader. Medicare important message explained to patient, patient signed. Copy provided to patient and signature page to OCM for inclusion in pt EMR. L Radha Powers Yoselin - 08/16/2017 10:34 AM EST Office of Care Management/Meat Processor Patient Name: Gregory Hoang : 1945 Patient has been offered a swing bed at [facility]. The patient will be transported by private transportation. No MD to MD report necessary Please call Nursing Report to [phone], ask for senior validation engineer. Info to accompany patient: Narcotic Prescriptions Copies of Medication Administration Records and IV sheets for past 10 days. Plan: Meat Processor will be available to the patient and Pile Driver Engineer-RN and/or Short Piece Handler for further assistance. Patient will be discharged to: [address] [id number] Radha Powers, Meat Processor Mira Truong, VAMSI - 08/15/2017 10:05 PM EST [address] Flores to ask if he wanted to hold metoprolol dose. BP 95/58. OK to hold this dose Courtney Brito - 08/15/2017 3:26 PM EST Office of Care Management(OCM)/Meat Processor(RS)/ D/C Planning re : Patient is medically ready for d/c today. RS has been in contact with [facility] to see if they could offer a bed. [facility] is still reviewing the case and need their MD to review chart prior to accepting or declining. OCM team needs to check in with [facility] tomorrow to check on status. 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 Vac in place. Rehab referrals ongoing. Can ambulate in hallway. Change VAC at bedside today. Naty Colindres RN - 08/14/2017 1:33 PM EST Patient Name: Gregory Hoang Patient Age: 72 y.o. Birthdate: 1945 Admit date: 08/06/2017 Attending Physician: Yonathan Smith MD We want him to go to a place for intensive therapy and not at a penitentiary where he will be just sitting there and not getting any therapy. . Contacted by direct care RN, who said that patient and would like information about patient's referral to: [facility] PHONE: [phone] FAX: [phone] CM spoke with RS who said that [...] would be accepted to acute rehab at [facility] as Dr. Smith had recommended [...] rehab. Await recommendations from PT. Covering pager #[phone]. 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 Cio Kaitlin Saha, RN Pager #[phone] Payam Rosales - 08/13/2017 2:37 PM EST Statistics Tutor Encounter Note Patient Name: Gregory Hoang : [id number] MR#: [id number] Admit Date: 08/06/2017 1:41 PM Hospital Day 7 days Narrative: Visited to introduce and assess acceptance of [facility] services. Pt was awake, alert, oriented and in chair and family was there. Assessment:Patient coping positively with stresses of illness/hospitalization at this time. Pt says that he is hoping to get better and his family was there. Pt says that he has family care and supportand taking one day at time. Intervention and Outcome: Provided emotional support and encouraging presence. 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 Patient requests referral to [facility] [employer]. PHONE: [phone] FAX: [phone]. And Home NPWT (Negative Pressure Wound Therapy) aka wound vac device made available to pt. Serial # confirmed. Reviewed [facility] Proof of Delivery/Assignment of Benefits Statement(POD/AOB) Form w patient or authorized agent signing on behalf of patient. Copy of POD/AOB provided to pt and other copy faxed to [employer] @ fax# [phone] Expected date of discharge: 08/12/2017. 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 Address: [address] [place] [address] [place] [address] (home) Mobile: Telephone Information: Referring Provider: No [...] [facility] ??? 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 Heparin gtt continues to run. [...] of : 1945 AGE 72 y.o. Address: [address] [place] [address] [place] [address] (home) Mobile: Telephone Information: Referring Provider: No [...] 7.93) performed by Yuan Retana MD at [facility] OR ??? 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 Vascular resident probation counselor and will forward result to the team prior to rounds. 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 Patient [...] [facility] ??? PRO COLONOSCOPY, REMV [...] Mcknight MD at [facility] Functional Status/Social Hx: Quit [...] left blue toes with CTA showing R COMPOUNDER pseudoaneurysm (now thrombosed) and occluded ATs bilaterally. [...] 2.5x80 5. Completion RLE angiogram 6. L COMPOUNDER angiogram 7. 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 - L COMPOUNDER angriogram demonstrated: High femoral bifurcation over the proximal half of the femoral head. L COMPOUNDER access in the distal L COMPOUNDER. - Closure device: Mynx Technical Procedure: The [...] for a 45cm 5F Destination. V18 and [place] and QuickCross catheters were used to select [...] 5F. A stationed picture of the L COMPOUNDER was performed as the patient was noted to have a very high bifurcation. Access appeared in the distal R COMPOUNDER. Closure and sheath removal was performed with [...] PM EST 1440 report called to 5 loiza nurse Tessa RN documented in this encounter [...] with pt and pt's spouse. Discharge to [facility]. Goal: Individualization & Mutuality Outcome: Outcome (s) [...] sit/sit to supine -- Bed Mobility Goal, [place] Level independent -- Bed Mobility Goal, Date [...] days -- Transfer Training Goal, Activity Type osq-ap-gduyq/uibkj-ug-ipp -- Transfer Train Goal, [place] Level conditional independence -- Transfer Train Goal, [...] call cabello within reach, Hourly rounding by RN/RPG PROGRAMMER. Bed alarm / Chair alarm. Patient-specific fall [...] Smith MD - 08/15/2017 6:28 PM EST [facility] Operative Note Patient Name: Gregory Hoang : [id number] MR#: [id number] Case Date: 08/09/2017 Surgeon: Surgeon(s) and Role: [...] 2.5x80 5. Completion RLE angiogram 6. L COMPOUNDER angiogram 7. Mynx closure Precautions/Restrictions: fall, sternal [...] feet/ bed -> bathroom). Anticipated Discharge Disposition: prison facility, other (see comments) (or swing bed) Pager: [phone] BASSAM ELIAS, PT 08/14/2017 Inpatient Physical Therapy [...] to Achieve by discharge Gait Training Goal, [place] Level conditional independence;set up required Gait Training [...] these facilities over the weekend except for [facility]. CM spoke with [facility] CM Drea Sandhu, VAMSI who said that they do not anticipate any beds over the weekend. Reviewed with patient/ that they need to be aware that patient will need to take the first bed offered at the facilities that they make referrals to. Their choices are: 1- [facility] PHONE: [phone] FAX: [phone] 2- [facility] ([facility]) [address] [place] [address] 3- [facility]) [address] [place] [address] I have discussed Medicare/Private Insurance [...] RS/CM on Wednesday to follow-up. Covering pager #[phone] for today. Plan of Care - Henrique [...] with additional findings of pseudoaneurysm on R COMPOUNDER and bilateral anterior tibial artery occlusions. Was [...] an outpatient once discharged. Have patient call [phone] to set up an appointment. Follow-up: Dermatology will sign-off for now. Please do not hesitate to contact us if you have any questions orconcerns. Impression and Recommendations discussed with primary team on 08/13/2017. Karo Henderson MD Resident in Dermatology Section of Dermatology, Department of Surgery [facility] Pager [phone] Patient seen and evaluated with staff Contract Assistant: Halima Cordero MD Section of Dermatology [facility] Level of Resident Supervision: Direct Supervision (The [...] Outcome: Ongoing (Interventions Implemented as Appropriate) 08/12/17 1016 Coping/Psychosocial Plan Of Care Reviewed With patient;spouse [...] 2.5x80 5. Completion RLE angiogram 6. L COMPOUNDER angiogram 7. Mynx closure Active Non-Hospital Problems [...] home with home health ([facility] PT&OT) Pager: [phone] YASIR TELLO OT 08/12/2017 Occupational Therapy Rehabilitation [...] 2.5x80 5. Completion RLE angiogram 6. L COMPOUNDER angiogram 7. Mynx closure Past Medical History: [...] with 24/7 assistance and maximal services) Pager: [phone] NICHOLAS MORA, PT 08/12/2017 Physical Therapy Rehabilitation [...] sit/sit to supine -- Bed Mobility Goal, [place] Level independent -- Bed Mobility Goal, Outcome Achieved -- goal ongoing Goal: Gait Training Goal Stand Alone Therapy Goal Outcome: Ongoing (Interventions Implemented as Appropriate) 08/11/17 1310 08/12/17 1510 Gait Training Goal Gait Training Goal, Date Established 08/11/17 -- Gait Training Goal, Time to Achieve 5 - 7 days -- Gait Training Goal, [place] Level conditional independence -- Gait Training Goal, [...] days -- Transfer Training Goal, Activity Type htd-ny-ifytr/tcenp-jo-ysd -- Transfer Train Goal, [place] Level conditional independence -- Transfer Training Goal, [...] Smith MD - 08/11/2017 2:52 PM EST [facility] Operative Note Patient Name: Gregory Hoang : [id number] MR#: [id number] Case Date: 08/11/2017 Surgeon: Surgeon(s) and Role: [...] 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 Completion RLE angiogram 6. L COMPOUNDER angiogram 7. Mynx closure He is very [...] Anticipated Discharge Disposition: inpatient rehabilitation facility Pager: [phone] LAWRENCE GONZALEZ, PT 08/11/2017 Physical Therapy Rehabilitation [...] to sit/sit to supine Bed Mobility Goal, [place] Level independent Goal: Gait Training Goal Stand Alone Therapy Goal Outcome: Ongoing (Interventions Implemented as Appropriate) 08/11/17 1310 Gait Training Goal Gait Training Goal, Date Established 08/11/17 Gait Training Goal, Time to Achieve 5 - 7 days Gait Training Goal, [place] Level conditional independence Gait Training Goal, Assist [...] 7 days Transfer Training Goal, Activity Type fhn-rv-jywee/ptdyu-hd-ppc Transfer Train Goal, [place] Level conditional independence Plan of David DelloAnnetta [...] call cabello within reach, Hourly rounding by RN/RPG PROGRAMMER. Bed alarm / Chair alarm. ? Patient-specific [...] 04/05/2013 Hospitalizations Within the Past 30 Days: [facility] 07/20/2017 Anticipated Length Of Stay (If known): Expected Length of Hospitalization: 5-7 days2-3 days Current Decision-Making Capacity: Alert and oriented x 4 Advance Care Planning: on file Kisha Hoang [facility] [phone] Current Coping/Education/Information Needs: pt and spouse state [...] Health/Prescription Coverage: Primary Insurance: MEDICARE Secondary Insurance: [id number] Prescription Coverage: See above Preferred Pharmacy: [facility] Other: N/A Primary Care Provider: Lovely Vicente MD [phone] Patient/Caregiver Goals of Treatment: Patient plans to [...] of care planning. Kaitlin Saha RN Pager: [phone] Plan of Care - Melba Jaramillo RN [...] Overview Goal: Plan of Care Review 08/08/17 6514 Coping/Psychosocial Plan Of Care Reviewed With patient [...] call cabello within reach, Hourly rounding by RN/RPG PROGRAMMER. Bed alarm / Chair alarm. Patient-specific fall prevention interventions for sensory deficits provided, if applicable: [X] Yes CPG GOAL OUTCOME EVALUATION: Goal: Fall Prevention-Safe Patient Handling Outcome: Ongoing (Interventions Implemented as Appropriate) 08/06/17 1700 08/06/17199908/07/17 5364 Positioning Body Position -- up in chair [...] at bedside and MD TEAM Carrying pager [phone] contacted (via Radio page) and notified of [...] [facility] Medical [facility] er Cardiology Dept [place], [place] [address] (Wo rk) 03/26/2022 Office Visit Cardiology Vitaliy Nobles MD [facility] ER CARDIOLOGY [place], [place] [address] (Wo rk) documented as of [...] section. TYPE AND SCREEN Routine 08/09/2017 1:10 ([facility]/CGP/SHANDA) AM EST BASIC METABOLIC PANEL Routine 08/09/2017 [...] Signature POC Glucose 160 65 - 199 [facility] mg/dL [facility] Comment: Supplemental ranges: <140 mg/dL before meals <180 mg/dL all other times of the day Specimen Anatomical Collection Method Collection Time Receive d Time (Source) Location / / Volume Laterality Blood specimen 08/16/2017 7:28 AM 018 7:28 (specimen) EST AM EST Yonathan Smith MD POINT OF CARE TEST ORDERABLE S Performing Organization Address City/State/ZIP [place] [address] (ABNORMAL) Differential, Automated (08/16/2017 5:08 AM EST) Patholo gist Method Time Signature Neutrophils % 73.9 % [facility] Neutr Abs (ANC) 5.37 1.70 - [facility] 6.10 [facility] x10(3)/[facility] LABORATORY Lymphocytes % 10.1 % [facility] Lymphocytes Abs 0.7 (L) 0.9 - 3.2 [facility] x10(3)/[facility] LABORATORY Monocytes % 10.1 % [facility] Monocyte Abs 0.7 0.3 - 0.9 [facility] x10(3)/[facility] LABORATORY Eosinophils % 5.1 % [facility] Eosinophils Abs 0.4 0.0 - 0.4 [facility] x10(3)/[facility] LABORATORY Basophils % 0.4 % [facility] Basophils Abs 0.0 0.0 - 0.1 [facility] x10(3)/[facility] LABORATORY Immature Gran % 0.40 % [facility] Comment: Immature granulocytes(IG's)percentage an d absolute count will include metamyelocytes, myelocytes, and promyelo cytes. Blood smears from CBCs yielding IG's will be scanned manually for concor dance. If this scan disagrees with the automated IG or if promyelocytes are not ed, a manual differential will be performed. Melisa Gran Abs 0.03 0.00 - 0.04 x10(3)/[facility] MAR Y [facility] Specimen Anatomical Collection Method Collection Time Receive d Time (Source) Location / / Volume Laterality Blood specimen 08/16/2017 5:08 AM 018 5:20 (specimen) EST AM EST Resulting Agency Comment Spec In Lab Yonathan Smith MD HEMATOLOGY ORDERABLES Performing Organization Address City/State/ZIP [place] [address] (ABNORMAL) Hemogram (08/16/2017 5:08 AM EST) Analysis Performed At Patho logist Time Signature WBC 7.3 4.0 - 9.5 [facility] x10(3)/[facility] LABORATORY RBC 3.36 (L) 4.58 - [facility] 5.54 [facility] x10(6)/[facility] LABORATORY Hemoglobin 9.7 (L) 13.7 - [facility] 16.5 gm/dL [facility] Hematocrit 30.3 (L) 40.5 - [facility] 48.5 % [facility] MCV 90.2 82.9 - BARBARA OLIVASCK 93.1 [facility] LABORATORY MCH 28.9 27.5 - BARBARA DAVIS 32.1 pg [facility] MCHC 32.0 32.0 - BARBARA DAVIS 35.7 gm/dL [facility] Platelets 282 145 - 357 [facility] x10(3)/[facility] LABORATORY RDWSD 53.9 (H) 36.0 - BARBARA DAVIS 45.0 [facility] LABORATORY RDWCV 16.5 (H) 11.4 - BARBARA RYAN 13.8 % [facility] MPV 9.0 7.6 - 12.9 [facility] LABORATORY nRBC % Auto 0.0 % [facility] nRBC Abs Auto 0.000 0.000 - BARBARA ZHAORYAN 0.000 [facility] x10(3)/[facility] LABORATORY Specimen Anatomical Collection Method Collection Time Receive d Time (Source) Location / / Volume Laterality Blood specimen 08/16/2017 5:08 AM 018 5:20 (specimen) EST AM EST Resulting Agency Comment Spec In Lab Yonathan Smith MD HEMATOLOGY ORDERABLES Performing Organization Address City/State/ZIP [place] [address] (ABNORMAL) Basic Metabolic Panel (non-fasting) (08/16/2017 5:08 AM EST) P athologist Signature Glucose Lvl 141 65 - 199 [facility] mg/dL [facility] Comment: Diabetes: >=200 mg/dL plus symp toms BUN 29 (H) 10 - 20 mg/dL [facility] Creatinine 1.25 0.80 - 1.50 mg/dL [facility] Sodium 140 135 - 145 mmol/L [facility] Potassium 4.5 3.5 - 5.0 mmol/L [facility] Comment: Please note: ??Patients with WBC >100,00 0 may have falsely elevated Potassium levels. ??For accurate Potassium quantif ication in these patients send serum separator tube (gold top) for subsequent determinations. ??Contact the Clinical Chemistry Laboratory if there are any qu estions. Chloride 99 98 - 107 mmol/L [facility] CO2 28 22 - 31 mmol/L [facility] Anion Gap 13 5 - 15 mmol/L [facility] Calcium 8.7 8.5 - 10.5 mg/dL [facility] Estimated GFR 57 (L) >=60 [facility] Comment: The reported eGFR should be multiplied b y 1.2 for patients. The MDRD is not an appropriate measure o f renal function for patients with body mass extremes or in patients with acute kidney failure. http://GlampingHub.com/DHnkdep http://GlampingHub.com/DHMCnkf Specimen Anatomical Collection Method Collection Time Receive d Time (Source) Location / / Volume Laterality Blood specimen 08/16/2017 5:08 AM 018 5:20 (specimen) EST AM EST Resulting Agency Comment Spec In Lab Yonathan Smith MD CHEMISTRY ORDERABLES Performing Organization Address City/State/[place] [address] (ABNORMAL) Prothrombin Time (08/16/2017 5:08 AM EST) P athologist Signature PT 25.2 (H) 11.8 - 14.0 [facility] LABORATORY INR 2.3 (H) 0.9 - 1.1 [facility] Comment: An INR [...] Organization Address City/State/ZIP Code Phon e Number [address] POCT Glucose (08/16/2017 4:09 AM EST) athologist Signature POC Glucose 147 65 - 199 BARBARA RYAN mg/dL [facility] Comment: Supplemental ranges: <140 mg/dL before meals <180 mg/dL all other times of the day Specimen Anatomical Collection Method Collection Time Receive d Time (Source) Location / / Volume Laterality Blood specimen 08/16/2017 4:09 AM 018 4:09 (specimen) EST AM EST Yonathan Smith MD POINT OF CARE TEST ORDERABLE S Performing Organization Address City/[facility]/ZIP Code Phon e Number [address] POCT Glucose (08/15/2017 11:56 PM EST) athologist Signature POC Glucose 176 65 - 199 BARBARA ZHAORYAN mg/dL [facility] LABORATORY Comment: Supplemental ranges: <140 mg/dL before meals <180 mg/dL all other times of the day Specimen Anatomical Collection Method Collection Time Receive d Time (Source) Location / / Volume Laterality Blood specimen 08/15/2017 11:56 8 (specimen) PM EST 11:56 PM EST Yonathan Smith MD POINT OF CARE TEST ORDERABLE S Performing Organization Address City/[facility]/[place] [address] POCT Glucose (08/15/2017 8:05 PM EST) athologist Signature POC Glucose 136 65 - 199 BARBARA RYAN mg/dL [facility]OR[facility] Comment: Supplemental ranges: <140 mg/dL before meals <180 mg/dL all other times of the day Specimen Anatomical Collection Method Collection Time Receive d Time (Source) Location / / Volume Laterality Blood specimen 08/15/2017 8:05 PM 018 8:05 (specimen) EST PM EST Yonathan Smith MD POINT OF CARE TEST ORDERABLE S Performing Organization Address City/State/[place] [address] (ABNORMAL) POCT Glucose (08/15/2017 4:50 PM EST) athologist Signature POC Glucose 232 (H) 65 - 199 [facility] mg/dL [facility]OR[facility] Comment: Supplemental ranges: <140 mg/dL before meals <180 mg/dL all other times of the day Specimen Anatomical Collection Method Collection Time Receive d Time (Source) Location / / Volume Laterality Blood specimen 08/15/2017 4:50 PM 018 4:50 (specimen) EST PM EST Yonathan Smith MD POINT OF CARE TEST ORDERABLE S Performing Organization Address City/State/ZIP Code Phon e Number [address] POCT Glucose (08/15/2017 12:04 PM EST) athologist Signature POC Glucose 135 65 - 199 [facility]YAN mg/dL [facility]OR[facility] Comment: Supplemental ranges: <140 mg/dL before meals <180 mg/dL all other times of the day Specimen Anatomical Collection Method Collection Time Receive d Time (Source) Location / / Volume Laterality Blood specimen 08/15/2017 12:04 8 (specimen) PM EST 12:04 PM EST Yonathan Smith MD POINT OF CARE TEST ORDERABLE S Performing Organization Address City/State/ZIP Code Phon e Number [address] POCT Glucose (08/15/2017 7:36 AM EST) athologist Signature POC Glucose 124 65 - 199 [facility] mg/dL [facility] Comment: Supplemental ranges: <140 mg/dL before meals <180 mg/dL all other times of the day Specimen Anatomical Collection Method Collection Time Receive d Time (Source) Location / / Volume Laterality Blood specimen 08/15/2017 7:36 AM 018 7:36 (specimen) EST AM EST Yonathan Smith MD POINT OF CARE TEST ORDERABLE S Performing Organization Address City/State/[place] [address] (ABNORMAL) Differential, Automated (08/15/2017 6:22 AM EST) Patholo gist Method Time Signature Neutrophils % 76.1 % [facility] LABORATORY Neutr Abs (ANC) 6.62 (H) 1.70 - [facility] 6.10 [facility] x10(3)/[facility] LABORATORY Lymphocytes % 9.3 % [facility] LABORATORY Lymphocytes Abs 0.8 (L) 0.9 - 3.2 [facility] x10(3)/[facility] LABORATORY Monocytes % 9.4 % [facility] LABORATORY Monocyte Abs 0.8 0.3 - 0.9 [facility] x10(3)/[facility] LABORATORY Eosinophils % 4.0 % [facility] LABORATORY Eosinophils Abs 0.4 0.0 - 0.4 [facility] x10(3)/[facility] LABORATORY Basophils % 0.6 % [facility] LABORATORY Basophils Abs 0.0 0.0 - 0.1 [facility] x10(3)/[facility] LABORATORY Immature Gran % 0.60 % [facility] LABORATORY Comment: Immature granulocytes(IG's)percentage an d absolute count will include metamyelocytes, myelocytes, and promyelo cytes. Blood smears from CBCs yielding IG's will be scanned manually for concor dance. If this scan disagrees with the automated IG or if promyelocytes are not ed, a manual differential will be performed. Melisa Gran Abs 0.05 (H) 0.00 - 0.04 x10(3)/[facility] LABORATORY Specimen Anatomical Collection Method Collection Time Receive d Time (Source) Location / / Volume Laterality Blood specimen 08/15/2017 6:22 AM 018 6:33 (specimen) EST AM EST Resulting Agency Comment Spec In Lab Yonathan Smith MD HEMATOLOGY ORDERABLES Performing Organization Address City/State/[place] [address] (ABNORMAL) Hemogram (08/15/2017 6:22 AM EST) Analysis Performed At Path logist Time Signature WBC 8.7 4.0 - 9.5 [facility] x10(3)/[facility] LABORATORY RBC 3.21 (L) 4.58 - BARBARA ZHAORYAN 5.54 [facility] x10(6)/[facility] LABORATORY Hemoglobin 9.1 (L) 13.7 - [facility] 16.5 gm/dL [facility]ORY Hematocrit 29.0 (L) 40.5 - [facility] 48.5 % [facility]ORATORY MCV 90.3 82.9 - [facility] 93.1 [facility] LABORATORY MCH 28.3 27.5 - [facility] 32.1 pg [facility] LABORATORY MCHC 31.4 (L) 32.0 - [facility] 35.7 gm/dL [facility] LABORATORY Platelets 254 145 - 357 [facility] x10(3)/[facility] LABORATORY RDWSD 53.9 (H) 36.0 - [facility] 45.0 [facility] LABORATORY RDWCV 16.3 (H) 11.4 - [facility] 13.8 % [facility] LABORATORY MPV 8.8 7.6 - 12.9 [facility] LABORATORY nRBC % Auto 0.0 % [facility] LABORATORY nRBC Abs Auto 0.000 0.000 - [facility] 0.000 [facility] x10(3)/[facility] LABORATORY Specimen Anatomical Collection Method Collection Time Receive d Time (Source) Location / / Volume Laterality Blood specimen 08/15/2017 6:22 AM 018 6:33 (specimen) EST AM EST Resulting Agency Comment Spec In Lab Yonathan Smith MD HEMATOLOGY ORDERABLES Performing Organization Address City/State/ZIP [place] [address] (ABNORMAL) Basic Metabolic Panel (non-fasting) (08/15/2017 6:22 AM EST) P athologist Signature Glucose Lvl 118 65 - 199 [facility] mg/dL [facility] Comment: Diabetes: >=200 mg/dL plus symp toms BUN 27 (H) 10 - 20 mg/dL [facility] LABORATORY Creatinine 1.12 0.80 - 1.50 mg/dL [facility] LABOR[facility] Sodium 138 135 - 145 mmol/L [facility] LABORATORY [...] Chloride 98 98 - 107 mmol/L [facility] CO2 29 22 - 31 mmol/L [facility] Anion Gap 11 5 - 15 mmol/L [facility]ORY Calcium 8.8 8.5 - 10.5 mg/dL [facility] LABORATORY Estimated GFR >60 >=60 [facility] Comment: The reported eGFR should be multiplied b y 1.2 for patients. The MDRD is not an appropriate measure o f renal function for patients with body mass extremes or in patients with acute kidney failure. http://[email or web address] [email or web address] Specimen Anatomical Collection Method Collection Time Receive d Time (Source) Location / / Volume Laterality Blood specimen 08/15/2017 6:22 AM 018 6:33 (specimen) EST AM EST Resulting Agency Comment Spec In Lab Yonathan Smith MD CHEMISTRY ORDERABLES Performing Organization Address City/State/ZIP [place] [address] (ABNORMAL) Prothrombin Time (08/15/2017 6:22 AM EST) athologist Signature PT 21.9 (H) 11.8 - 14.0 [facility] LABORATORY INR 1.9 (H) 0.9 - 1.1 [facility] LABORATORY Comment: An INR [...] Organization Address City/State/ZIP Code Phon e Number [address] POCT Glucose (08/15/2017 4:33 AM EST) athologist Signature POC Glucose 164 65 - 199 BARBAR[place] RYAN mg/dL [facility] Comment: Supplemental ranges: <140 mg/dL before meals <180 mg/dL all other times of the day Specimen Anatomical Collection Method Collection Time Receive d Time (Source) Location / / Volume Laterality Blood specimen 08/15/2017 4:33 AM 018 4:33 (specimen) EST AM EST Yonathan Smith MD POINT OF CARE TEST ORDERABLE S Performing Organization Address City/[facility]/ZIP Code Phon e Number [address] POCT Glucose (08/15/2017 12:12 AM EST) athologist Signature POC Glucose 89 65 - 199 BARBAR[place] RYAN mg/dL [facility] Comment: Supplemental ranges: <140 mg/dL before meals <180 mg/dL all other times of the day Specimen Anatomical Collection Method Collection Time Receive d Time (Source) Location / / Volume Laterality Blood specimen 08/15/2017 12:12 8 (specimen) AM EST 12:12 AM EST Yonathan Smith MD POINT OF CARE TEST ORDERABLE S Performing Organization Address City/[facility]/ZIP Code Phon e Number [address] (ABNORMAL) POCT Glucose (08/14/2017 8:07 PM EST) athologist Signature POC Glucose 204 (H) 65 - 199 BARBAR[place] RYAN mg/dL [facility] Comment: Supplemental ranges: <140 mg/dL before meals <180 mg/dL all other times of the day Specimen Anatomical Collection Method Collection Time Receive d Time (Source) Location / / Volume Laterality Blood specimen 08/14/2017 8:07 PM 018 8:07 (specimen) EST PM EST Yonathan Smith MD POINT OF CARE TEST ORDERABLE S Performing Organization Address City/State/ZIP Code Phon e Number [address] POCT Glucose (08/14/2017 5:11 PM EST) athologist Signature POC Glucose 174 65 - 199 [place] mg/dL [facility] Comment: Supplemental ranges: <140 mg/dL before meals <180 mg/dL all other times of the day Specimen Anatomical Collection Method Collection Time Receive d Time (Source) Location / / Volume Laterality Blood specimen 08/14/2017 5:11 PM 018 5:11 (specimen) EST PM EST Yonathan Smith MD POINT OF CARE TEST ORDERABLE S Performing Organization Address City/State/ZIP Code Phon e Number [address] POCT Glucose (08/14/2017 12:10 PM EST) athologist Signature POC Glucose 141 65 - 199 BARBAR[place] RYAN mg/dL [facility] Comment: Supplemental ranges: <140 mg/dL before meals <180 mg/dL all other times of the day Specimen Anatomical Collection Method Collection Time Receive d Time (Source) Location / / Volume Laterality Blood specimen 08/14/2017 12:10 8 (specimen) PM EST 12:10 PM EST Yonathan Smith MD POINT OF CARE TEST ORDERABLE S Performing Organization Address City/State/ZIP Code Phon e Number [address] POCT Glucose (08/14/2017 8:07 AM EST) athologist Signature POC Glucose 158 65 - 199 BARBARA ZHAORYAN mg/dL [facility] Comment: Supplemental ranges: <140 mg/dL before meals <180 mg/dL all other times of the day Specimen Anatomical Collection Method Collection Time Receive d Time (Source) Location / / Volume Laterality Blood specimen 08/14/2017 8:07 AM 018 8:07 (specimen) EST AM EST Yonathan Smith MD POINT OF CARE TEST ORDERABLE S Performing Organization Address City/State/Z[place] [address] (ABNORMAL) Differential, Automated (08/14/2017 4:52 AM EST) [facility] Method Time Signature Neutrophils % 78.6 % [facility] LABORATORY Neutr Abs (ANC) 7.70 (H) 1.70 - [facility] 6.10 [facility] x10(3)/[facility] LABORATORY Lymphocytes % 7.8 % [facility] LABORATORY Lymphocytes Abs 0.8 (L) 0.9 - 3.2 [facility] x10(3)/[facility] LABORATORY Monocytes % 8.8 % [facility] LABORATORY Monocyte Abs 0.9 0.3 - 0.9 [facility] x10(3)/[facility] LABORATORY Eosinophils % 4.0 % [facility] LABORATORY Eosinophils Abs 0.4 0.0 - 0.4 [facility] x10(3)/[facility] LABORATORY Basophils % 0.5 % [facility]ORATORY Basophils Abs 0.0 0.0 - 0.1 [facility] x10(3)/[facility] LABORATORY Immature Gran % 0.30 % [facility]ATORY Comment: Immature granulocytes(IG's)percentage an d absolute count will include metamyelocytes, myelocytes, and promyelo cytes. Blood smears from CBCs yielding IG's will be scanned manually for concor dance. If this scan disagrees with the automated IG or if promyelocytes are not ed, a manual differential will be performed. Melisa Gran Abs 0.03 0.00 - 0.04 x10(3)/[facility] MAR Y [facility] LABORATORY Specimen Anatomical Collection Method Collection Time Receive d Time (Source) Location / / Volume Laterality Blood specimen 08/14/2017 4:52 AM 018 5:08 (specimen) EST AM EST Resulting Agency Comment Spec In Lab Yonathan Smith MD HEMATOLOGY ORDERABLES Performing Organization Address City/State/ZIP Code Phon e Number [address] (ABNORMAL) Hemogram (08/14/2017 4:52 AM EST) Analysis Performed At Patho logist Time Signature WBC 9.8 (H) 4.0 - 9.5 [facility] x[facility](3[facility] LABORATORY RBC 3.32 (L) 4.58 - [place] RYAN 5.54 [facility] x10(6)/[facility] LABORATORY Hemoglobin 9.5 (L) 13.7 - [facility] 16.5 gm/dL [facility] Hematocrit 30.3 (L) 40.5 - [facility] 48.5 % [facility] MCV 91.3 82.9 - [facility] 93.1 [facility] LABORATORY MCH 28.6 27.5 - [place] RYAN 32.1 pg [facility] LABORATORY MCHC 31.4 (L) 32.0 - [place] RYAN 35.7 gm/dL [facility] Platelets 263 145 - 357 [facility] x10(3)/[facility] LABORATORY RDWSD 54.8 (H) 36.0 - [place] RYAN 45.0 [facility] LABORATORY RDWCV 16.5 (H) 11.4 - [facility] 13.8 % [facility] LABORATORY MPV 9.1 7.6 - 12.9 [facility] LABORATORY nRBC % Auto 0.0 % [facility] LABORATORY nRBC Abs Auto 0.000 0.000 - [place] RY[place] 0.000 [facility] x10(3)/[facility] LABORATORY Specimen Anatomical Collection Method Collection Time Receive d Time (Source) Location / / Volume Laterality Blood specimen 08/14/2017 4:52 AM 018 5:08 (specimen) EST AM EST Resulting Agency Comment Spec In Lab Yonathan Smith MD HEMATOLOGY ORDERABLES Performing Organization Address City/State/ZIP Code Phon e Number [address] (ABNORMAL) Prothrombin Time (08/14/2017 4:52 AM EST) athologist Signature PT 18.8 (H) 11.8 - 14.0 [facility] LABORATORY INR 1.6 (H) 0.9 - 1.1 [facility] LABORATORY Comment: An INR [...] Organization Address City/State/[place] [address] (ABNORMAL) Basic Metabolic Panel (non-fasting) (08/14/2017 4:52 AM EST) athologist Signature Glucose Lvl 135 65 - 199 [facility] mg/dL [facility] Comment: Diabetes: >=200 mg/dL plus symp toms BUN 25 (H) 10 - 20 mg/dL [facility] LABORATORY Creatinine 1.36 0.80 - 1.50 mg/dL [facility] LABORATORY Sodium 141 135 - 145 mmol/L [facility] LABORATORY [...] mmol/L [facility] LABORATORY Anion Gap 13 5 - 15 mmol/L [facility]ORY Calcium 8.5 8.5 - 10.5 mg/dL [facility] LABORATORY Estimated GFR 52 (L) >=60 [facility] Comment: The reported eGFR should be multiplied b y 1.2 for patients. The MDRD is not an appropriate measure o f renal function for patients with body mass extremes or in patients with acute kidney failure. http://[email or web address]/DHnkdep [email or web address]/DHMCnkf Specimen Anatomical Collection Method Collection Time Receive d Time (Source) Location / / Volume Laterality Blood specimen 08/14/2017 4:52 AM 018 5:08 (specimen) EST AM EST Resulting Agency Comment Spec In Lab Yonathan Smith MD CHEMISTRY ORDERABLES Performing Organization Address City/[facility]/ZIP Code Phon e Number [address] POCT Glucose (08/14/2017 3:56 AM EST) athologist Signature POC Glucose 135 65 - 199 [facility]/dL [facility] Comment: Supplemental ranges: <140 mg/dL before meals <180 mg/dL all other times of the day Specimen Anatomical Collection Method Collection Time Receive d Time (Source) Location / / Volume Laterality Blood specimen 08/14/2017 3:56 AM 018 3:56 (specimen) EST AM EST Yonathan Smith MD POINT OF CARE TEST ORDERABLE S Performing Organization Address City/State/ZIP Code Phon e Number [address] POCT Glucose (08/13/2017 11:13 PM EST) athologist Signature POC Glucose 118 65 - 199 [facility] mg/dL [facility] Comment: Supplemental ranges: <140 mg/dL before meals <180 mg/dL all other times of the day Specimen Anatomical Collection Method Collection Time Receive d Time (Source) Location / / Volume Laterality Blood specimen 08/13/2017 11:13 01/19/201 8 (specimen) PM EST 11:13 PM EST Yonathan Smith MD POINT OF CARE TEST ORDERABLE S Performing Organization Address City/State/ZIP Code Phon e Number [address] (ABNORMAL) POCT Glucose (08/13/2017 8:08 PM EST) athologist Signature POC Glucose 204 (H) 65 - 199 BARBARA ZHAORYAN mg/dL [facility] Comment: Supplemental ranges: <140 mg/dL before meals <180 mg/dL all other times of the day Specimen Anatomical Collection Method Collection Time Receive d Time (Source) Location / / Volume Laterality Blood specimen 08/13/2017 8:08 PM 018 8:08 (specimen) EST PM EST Yonathan Smith MD POINT OF CARE TEST ORDERABLE S Performing Organization Address City/[facility]/ZIP Code Phon e Number [address] POCT Glucose (08/13/2017 4:02 PM EST) athologist Signature POC Glucose 145 65 - 199 [place] RYAN mg/dL [facility] Comment: Supplemental ranges: <140 mg/dL before meals <180 mg/dL all other times of the day Specimen Anatomical Collection Method Collection Time Receive d Time (Source) Location / / Volume Laterality Blood specimen 08/13/2017 4:02 PM 018 4:02 (specimen) EST PM EST Yonathan Smith MD POINT OF CARE TEST ORDERABLE S Performing Organization Address City/[facility]/[place] [address] POCT Glucose (08/13/2017 11:31 AM EST) athologist Signature POC Glucose 179 65 - 199 [place] RYAN mg/dL [facility] Comment: Supplemental ranges: <140 mg/dL before meals <180 mg/dL all other times of the day Specimen Anatomical Collection Method Collection Time Receive d Time (Source) Location / / Volume Laterality Blood specimen 08/13/2017 11:31 8 (specimen) AM EST 11:31 AM EST Yonathan Smith MD POINT OF CARE TEST ORDERABLE S Performing Organization Address City/[facility]/ZIP Code Phon e Number [address] (ABNORMAL) POCT Glucose (08/13/2017 10:16 AM EST) P athologist Signature POC Glucose 211 (H) 65 - 199 BARBARA DAVIS mg/dL [facility] Comment: Supplemental ranges: <140 mg/dL before meals <180 mg/dL all other times of the day Specimen Anatomical Collection Method Collection Time Receive d Time (Source) Location / / Volume Laterality Blood specimen 08/13/2017 10:16 8 (specimen) AM EST 10:16 AM EST Yonathan Smith MD POINT OF CARE TEST ORDERABLE S Performing Organization Address City/[facility]/[place] [address] JULIAN, legs, multiple levels (08/13/2017 7:42 AM EST) Component Value Ref Test Analysis Performed At Patholo gist Range Method Time Signature VB Text Department: Vascular Surgery Lab VASCUBASE Report Patient: [id number] (GREGORY HOANG) CPT: 16463 ICD10: I99.8 Referring Physician: YONATHAN SMITH ?? Indications: s/p R 1,2,3 toe amps with red left foot, need n ew baseline Diabetes mellitus: yes ICD10 Diagnosis Code: I99.8 Findings: Right ?Pressure (mm Hg) ?? JULIAN ??Waveform ?TBI ?? Brachial Artery ?138 ? Dorsalis Pedis (Ankle) Arter y ?132 ? 0.94 ??[place]- Biphasic ? Posterior Tibial (Ankle) Art anila ??154 ? 1.10 ??[place]-Biphasic ? Fourth Toe ? 67 ? 0.48 [...] Smith MD VASCULAR ORDERABLES Performing Organization Address City/[facility]/ZIP Code Phon e Number VASCUBASE POCT Glucose (08/13/2017 7:33 AM EST) P athologist Signature POC Glucose 156 65 - 199 [facility] mg/dL [facility] Comment: Supplemental ranges: <140 mg/dL before meals <180 mg/dL all other times of the day Specimen Anatomical Collection Method Collection Time Receive d Time (Source) Location / / Volume Laterality Blood specimen 08/13/2017 7:33 AM 018 7:33 (specimen) EST AM EST Yonathan Smith MD POINT OF CARE TEST ORDERABLE S Performing Organization Address City/State/Z[place] [address] (ABNORMAL) Differential, Automated (08/13/2017 5:33 AM EST) Patholo gist Method Time Signature Neutrophils % 77.8 % [facility] LABORATORY Neutr Abs (ANC) 7.83 (H) 1.70 - [facility] 6.10 [facility] x10(3)/[facility] L LABORATORY Lymphocytes % 8.4 % [facility] LABORATORY Lymphocytes Abs 0.8 (L) 0.9 - 3.2 [facility] x10(3)/[facility] LABORATORY Monocytes % 8.3 % [facility] LABORATORY Monocyte Abs 0.8 0.3 - 0.9 [facility] x10(3)/[facility] LABORATORY Eosinophils % 4.6 % [facility] LABORATORY Eosinophils Abs 0.5 (H) 0.0 - 0.4 [facility] x10(3)/[facility] LABORATORY Basophils % 0.5 % [facility] LABORATORY Basophils Abs 0.0 0.0 - 0.1 [facility] x10(3)/[facility] LABORATORY Immature Gran % 0.40 % [facility] LABORATORY Comment: Immature granulocytes(IG's)percentage an d absolute count will include metamyelocytes, myelocytes, and promyelo cytes. Blood smears from CBCs yielding IG's will be scanned manually for concor dance. If this scan disagrees with the automated IG or if promyelocytes are not ed, a manual differential will be performed. Melisa Gran Abs 0.04 0.00 - 0.04 x10(3)/[facility] MAR Y [facility] LABORATORY Specimen Anatomical Collection Method Collection Time Receive d Time (Source) Location / / Volume Laterality Blood specimen 08/13/2017 5:33 AM 018 6:04 (specimen) EST AM EST Resulting Agency Comment Spec In Lab Yonathan Smith MD HEMATOLOGY ORDERABLES Performing Organization Address City/State/Z[place] [address] (ABNORMAL) Hemogram (08/13/2017 5:33 AM EST) Analysis Performed At Patho logist Time Signature WBC 10.1 (H) 4.0 - 9.5 [facility] x10(3)/[facility] LABORATORY RBC 3.21 (L) 4.58 - [facility] 5.54 [facility] x10(6)/[facility] LABORATORY Hemoglobin 9.2 (L) 13.7 - [facility] 16.5 gm/dL [facility] LABORATORY Hematocrit 29.6 (L) 40.5 - [facility] 48.5 % [facility] LABORATORY MCV 92.2 82.9 - [facility] 93.1 [facility] LABORATORY MCH 28.7 27.5 - BARBARA DAVIS 32.1 pg [facility] LABORATORY MCHC 31.1 (L) 32.0 - [place]BAR[place] DAVIS 35.7 gm/dL [facility] Platelets 263 145 - 357 BARBARA WILLAMINA x10(3)/[facility] LABORATORY RDWSD 54.8 (H) 36.0 - BARBARA DAVIS 45.0 [facility] LABORATORY RDWCV 16.4 (H) 11.4 - [facility] 13.8 % [facility] MPV 9.2 7.6 - 12.9 [facility] LABORATORY nRBC % Auto 0.0 % [facility] nRBC Abs Auto 0.000 0.000 - BARBARA RYAN 0.000 [facility] x10(3)/[facility] LABORATORY Specimen Anatomical Collection Method Collection Time Receive d Time (Source) Location / / Volume Laterality Blood specimen 08/13/2017 5:33 AM 018 6:04 (specimen) EST AM EST Resulting Agency Comment Spec In Lab Yonathan Smtih MD HEMATOLOGY ORDERABLES Performing Organization Address City/State/[place] [address] (ABNORMAL) Prothrombin Time (08/13/2017 5:33 AM EST) P athologist Signature PT 17.3 (H) 11.8 - 14.0 [facility] LABORATORY INR 1.4 (H) 0.9 - 1.1 [facility] Comment: An INR [...] Organization Address City/State/[place] [address] (ABNORMAL) Basic Metabolic Panel (non-fasting) (08/13/2017 5:33 AM EST) P athologist Signature Glucose Lvl 126 65 - 199 [facility] mg/dL [facility] Comment: Diabetes: >=200 mg/dL plus symp toms BUN 18 10 - 20 mg/dL [facility] Creatinine 1.16 0.80 - 1.50 mg/dL [facility] Sodium 141 135 - 145 mmol/L [facility] [...] 15 mmol/L [facility] Calcium 7.9 (L) 8.5 - 10.5 mg/dL [facility] Estimated GFR >60 >=60 [facility] Comment: The reported eGFR should be multiplied b y 1.2 for patients. The MDRD is not an appropriate measure o f renal function for patients with body mass extremes or in patients with acute kidney failure. http://Clipcopia.Relaborate/DHnkdep http://Clipcopia.com/DHMCnkf Specimen Anatomical Collection Method Collection Time Receive d Time (Source) Location / / Volume Laterality Blood specimen 08/13/2017 5:33 AM 018 6:04 (specimen) EST AM EST Resulting Agency Comment Spec In Lab Yonathan Smith MD CHEMISTRY ORDERABLES Performing Organization Address City/State/[place] [address] POCT Glucose (08/13/2017 4:29 AM EST) athologist Signature POC Glucose 111 65 - 199 BARBARA ZHAORYAN mg/dL [facility] Comment: Supplemental ranges: <140 mg/dL before meals <180 mg/dL all other times of the day Specimen Anatomical Collection Method Collection Time Receive d Time (Source) Location / / Volume Laterality Blood specimen 08/13/2017 4:29 AM 018 4:29 (specimen) EST AM EST Yonathan Smith MD POINT OF CARE TEST ORDERABLE S Performing Organization Address City/[facility]/[place] [address] POCT Glucose (08/12/2017 11:28 PM EST) athologist Signature POC Glucose 164 65 - 199 BARBARA ZHAORYAN mg/dL [facility] Comment: Supplemental ranges: <140 mg/dL before meals <180 mg/dL all other times of the day Specimen Anatomical Collection Method Collection Time Receive d Time (Source) Location / / Volume Laterality Blood specimen 08/12/2017 11:28 8 (specimen) PM EST 11:28 PM EST Yonathan Smith MD POINT OF CARE TEST ORDERABLE S Performing Organization Address City/[facility]/[place] [address] (ABNORMAL) POCT Glucose (08/12/2017 7:40 PM EST) athologist Signature POC Glucose 209 (H) 65 - 199 BARBARA ZHAORYAN mg/dL [facility] Comment: Supplemental ranges: <140 mg/dL before meals <180 mg/dL all other times of the day Specimen Anatomical Collection Method Collection Time Receive d Time (Source) Location / / Volume Laterality Blood specimen 08/12/2017 7:40 PM 018 7:40 (specimen) EST PM EST Yonathan Smith MD POINT OF CARE TEST ORDERABLE S Performing Organization Address City/State/[place] [address] POCT Glucose (08/12/2017 4:24 PM EST) athologist Signature POC Glucose 161 65 - 199 [facility] mg/dL [facility] Comment: Supplemental ranges: <140 mg/dL before meals <180 mg/dL all other times of the day Specimen Anatomical Collection Method Collection Time Receive d Time (Source) Location / / Volume Laterality Blood specimen 08/12/2017 4:24 PM 018 4:24 (specimen) EST PM EST Yonathan Smith MD POINT OF CARE TEST ORDERABLE S Performing Organization Address City/State/ZIP Code Phon e Number [address] POCT Glucose (08/12/2017 12:00 PM EST) athologist Signature POC Glucose 167 65 - 199 [facility] mg/dL [facility] Comment: Supplemental ranges: <140 mg/dL before meals <180 mg/dL all other times of the day Specimen Anatomical Collection Method Collection Time Receive d Time (Source) Location / / Volume Laterality Blood specimen 08/12/2017 12:00 8 (specimen) PM EST 12:00 PM EST Yonathan Smith MD POINT OF CARE TEST ORDERABLE S Performing Organization Address City/State/[place] [address] POCT Glucose (08/12/2017 7:25 AM EST) athologist Signature POC Glucose 152 65 - 199 BARBARA RYAN mg/dL [facility] Comment: Supplemental ranges: <140 mg/dL before meals <180 mg/dL all other times of the day Specimen Anatomical Collection Method Collection Time Receive d Time (Source) Location / / Volume Laterality Blood specimen 08/12/2017 7:25 AM 018 7:25 (specimen) EST AM EST Yonathan Smith MD POINT OF CARE TEST ORDERABLE S Performing Organization Address City/State/[place] [address] (ABNORMAL) Differential, Automated (08/12/2017 6:29 AM EST) Patholo gist Method Time Signature Neutrophils % 78.7 % [facility] Neutr Abs (ANC) 7.94 (H) 1.70 - [facility] 6.10 [facility] x10(3)/[facility] LABORATORY Lymphocytes % 8.8 % [facility] Lymphocytes Abs 0.9 0.9 - 3.2 [facility] x10(3)/[facility] LABORATORY Monocytes % 7.8 % [facility] Monocyte Abs 0.8 0.3 - 0.9 [facility] x10(3)/[facility] LABORATORY Eosinophils % 3.9 % [facility] Eosinophils Abs 0.4 0.0 - 0.4 [facility] x10(3)/[facility] LABORATORY Basophils % 0.3 % [facility] Basophils Abs 0.0 0.0 - 0.1 [facility] x10(3)/[facility] LABORATORY Immature Gran % 0.50 % [facility] Comment: Immature granulocytes(IG's)percentage an d absolute count will include metamyelocytes, myelocytes, and promyelo cytes. Blood smears from CBCs yielding IG's will be scanned manually for concor dance. If this scan disagrees with the automated IG or if promyelocytes are not ed, a manual differential will be performed. Melisa Gran Abs 0.05 (H) 0.00 - 0.04 x10(3)/[facility] LABORATORY Specimen Anatomical Collection Method Collection Time Receive d Time (Source) Location / / Volume Laterality Blood specimen 08/12/2017 6:29 AM 018 6:38 (specimen) EST AM EST Resulting Agency Comment Spec In Lab Yonathan Smith MD HEMATOLOGY ORDERABLES Performing Organization Address City/State/ZIP Code Phon e Number [place] [id number]OS[address] LAB[address]ORY Drive (ABNORMAL) Hemogram (08/12/2017 6:29 AM EST) Analysis Performed At Path logist Time Signature WBC 10.1 (H) 4.0 - 9.5 [facility] x10(3)/[facility] LABORATORY RBC 3.02 (L) 4.58 - [facility] 5.54 [facility] x10(6)/[facility] LABORATORY Hemoglobin 8.7 (L) 13.7 - [facility] gm/dL [facility] Hematocrit 28.1 (L) 40.5 - [facility] 48.5 % [facility] MCV 93.0 82.9 - [facility] 93.1 [facility] LABORATORY MCH 28.8 27.5 - [facility] 32.1 pg [facility] MCHC 31.0 (L) 32.0 - [facility] 35.7 gm/dL [facility] Platelets 223 145 - 357 [facility] x10(3)/[facility] LABORATORY RDWSD 56.1 (H) 36.0 - [facility] 45.0 [facility] RDWCV 16.4 (H) 11.4 - [facility] 13.8 % [facility] MPV 9.0 7.6 - 12.9 [facility] LABORATORY nRBC % Auto 0.0 % [facility] nRBC Abs Auto 0.000 0.000 - [facility] 0.000 [facility] x10(3)/[facility] LABORATORY Specimen Anatomical Collection Method Collection Time Receive d Time (Source) Location / / Volume Laterality Blood specimen 08/12/2017 6:29 AM 018 6:38 (specimen) EST AM EST Resulting Agency Comment Spec In Lab Yonathan Smith MD HEMATOLOGY ORDERABLES Performing Organization Address City/State/[place] [address] (ABNORMAL) Prothrombin Time (08/12/2017 6:29 AM EST) athologist Signature PT 16.1 (H) 11.8 - 14.0 [facility] LABORATORY INR 1.3 (H) 0.9 - 1.1 [facility] Comment: An INR [...] City/State/ZIP Code Phon e Number [place] [phone] HOSPITAL LABORATORY Drive (ABNORMAL) Basic Metabolic Panel (non-fasting) (08/12/2017 6:29 AM EST) P athologist Signature Glucose Lvl 151 65 - 199 [facility] mg/dL [facility] Comment: Diabetes: >=200 mg/dL plus symp toms BUN 18 10 - 20 mg/dL [facility] Creatinine 1.11 0.80 - 1.50 mg/dL [facility] Sodium 138 135 - 145 mmol/L [facility] LABORATORY [...] estions. Chloride 99 98 - 107 mmol/L [facility] CO2 28 22 - 31 mmol/L [facility] Anion Gap 11 5 - 15 mmol/L [facility] Calcium 7.9 (L) 8.5 - 10.5 mg/dL [facility] Estimated GFR >60 >=60 [facility] Comment: The reported eGFR should be multiplied b y 1.2 for patients. The MDRD is not an appropriate measure o f renal function for patients with body mass extremes or in patients with acute kidney failure. http://Clipcopia.Relaborate/DHnkdep http://Clipcopia.Relaborate/DHMCnkf Specimen Anatomical Collection Method Collection Time Receive d Time (Source) Location / / Volume Laterality Blood specimen 08/12/2017 6:29 AM 018 6:38 (specimen) EST AM EST Resulting Agency Comment Spec In Lab Yonathan Smith MD CHEMISTRY ORDERABLES Performing Organization Address City/State/ZIP Code Phon e Number [address] POCT Glucose (08/12/2017 4:08 AM EST) athologist Signature POC Glucose 181 65 - 199 BARBARA RYAN mg/dL [facility] Comment: Supplemental ranges: <140 mg/dL before meals <180 mg/dL all other times of the day Specimen Anatomical Collection Method Collection Time Receive d Time (Source) Location / / Volume Laterality Blood specimen 08/12/2017 4:08 AM 018 4:08 (specimen) EST AM EST Yonathan Smith MD POINT OF CARE TEST ORDERABLE S Performing Organization Address City/[facility]/[place] [address] (ABNORMAL) POCT Glucose (08/12/2017 12:17 AM EST) athologist Signature POC Glucose 221 (H) 65 - 199 BARBARA RYAN mg/dL [facility] Comment: Supplemental ranges: <140 mg/dL before meals <180 mg/dL all other times of the day Specimen Anatomical Collection Method Collection Time Receive d Time (Source) Location / / Volume Laterality Blood specimen 08/12/2017 12:17 8 (specimen) AM EST 12:17 AM EST Yonathan Smith MD POINT OF CARE TEST ORDERABLE S Performing Organization Address City/[facility]/ZIP Code Phon e Number [address] (ABNORMAL) POCT Glucose (08/11/2017 8:52 PM EST) athologist Signature POC Glucose 221 (H) 65 - 199 BARBARA RYAN mg/dL [facility] Comment: Supplemental ranges: <140 mg/dL before meals <180 mg/dL all other times of the day Specimen Anatomical Collection Method Collection Time Receive d Time (Source) Location / / Volume Laterality Blood specimen 08/11/2017 8:52 PM 018 8:52 (specimen) EST PM EST Yonathan Smith MD POINT OF CARE TEST ORDERABLE S Performing Organization Address City/State/[place] [address] POCT Glucose (08/11/2017 5:59 PM EST) athologist Signature POC Glucose 169 65 - 199 BARBARA ZHAORYAN mg/dL [facility] Comment: Supplemental ranges: <140 mg/dL before meals <180 mg/dL all other times of the day Specimen Anatomical Collection Method Collection Time Receive d Time (Source) Location / / Volume Laterality Blood specimen 08/11/2017 5:59 PM 018 5:59 (specimen) EST PM EST Yonathan Smith MD POINT OF CARE TEST ORDERABLE S Performing Organization Address City/State/[place] [address] (ABNORMAL) POCT Glucose (08/11/2017 4:08 PM EST) athologist Signature POC Glucose 240 (H) 65 - 199 BARBARA RYAN mg/dL [facility] Comment: Supplemental ranges: <140 mg/dL before meals <180 mg/dL all other times of the day Specimen Anatomical Collection Method Collection Time Receive d Time (Source) Location / / Volume Laterality Blood specimen 08/11/2017 4:08 PM 018 4:08 (specimen) EST PM EST Yonathan Smith MD POINT OF CARE TEST ORDERABLE S Performing Organization Address City/State/ZIP Code Phon e Number [address] POCT Glucose (08/11/2017 12:04 PM EST) athologist Signature POC Glucose 182 65 - 199 BARBARA RYAN mg/dL [facility] Comment: Supplemental ranges: <140 mg/dL before meals <180 mg/dL all other times of the day Specimen Anatomical Collection Method Collection Time Receive d Time (Source) Location / / Volume Laterality Blood specimen 08/11/2017 12:04 8 (specimen) PM EST 12:04 PM EST Yonathan Smith MD POINT OF CARE TEST ORDERABLE S Performing Organization Address City/State/[place] [address] POCT Glucose (08/11/2017 7:31 AM EST) P athologist Signature POC Glucose 156 65 - 199 [facility] mg/dL [facility] Comment: Supplemental ranges: <140 mg/dL before meals <180 mg/dL all other times of the day Specimen Anatomical Collection Method Collection Time Receive d Time (Source) Location / / Volume Laterality Blood specimen 08/11/2017 7:31 AM 018 7:31 (specimen) EST AM EST Yonathan Smith MD POINT OF CARE TEST ORDERABLE S Performing Organization Address City/State/[place] [address] (ABNORMAL) Differential, Automated (08/11/2017 6:16 AM EST) Patholo gist Method Time Signature Neutrophils % 83.7 % [facility] Neutr Abs (ANC) 10.76 (H) 1.70 - [facility] 6.10 [facility] x10(3)/[facility] L LABORATORY Lymphocytes % 6.0 % [facility] Lymphocytes Abs 0.8 (L) 0.9 - 3.2 [facility] x10(3)/[facility] LABORATORY Monocytes % 7.5 % [facility] Monocyte Abs 1.0 (H) 0.3 - 0.9 [facility] x10(3)/[facility] LABORATORY Eosinophils % 2.0 % [facility] Eosinophils Abs 0.3 0.0 - 0.4 [facility] x10(3)/[facility] LABORATORY Basophils % 0.3 % [facility] Basophils Abs 0.0 0.0 - 0.1 [facility] x10(3)/[facility] LABORATORY Immature Gran % 0.50 % [facility] Comment: Immature granulocytes(IG's)percentage an d absolute count will include metamyelocytes, myelocytes, and promyelo cytes. Blood smears from CBCs yielding IG's will be scanned manually for concor dance. If this scan disagrees with the automated IG or if promyelocytes are not ed, a manual differential will be performed. Melisa Gran Abs 0.06 (H) 0.00 - 0.04 x10(3)/[facility] LABORATORY Specimen Anatomical Collection Method Collection Time Receive d Time (Source) Location / / Volume Laterality Blood specimen 08/11/2017 6:16 AM 018 6:24 (specimen) EST AM EST Resulting Agency Comment Spec In Lab Yonathan Smith MD HEMATOLOGY ORDERABLES Performing Organization Address City/State/Z[place] [address] (ABNORMAL) Hemogram (08/11/2017 6:16 AM EST) Analysis Performed At Patho logist Time Signature WBC 12.9 (H) 4.0 - 9.5 [facility] x10(3)/[facility] LABORATORY RBC 3.28 (L) 4.58 - [facility] 5.54 [facility] x10(6)/[facility] LABORATORY Hemoglobin 9.5 (L) 13.7 - [facility] 16.[facility] gm/dL [facility] Hematocrit 29.8 (L) 40.5 - [facility] 48.5 % [facility] MCV 90.9 82.9 - [facility] 93.1 [facility] LABORATORY MCH 29.0 27.5 - [facility] 32.1 pg [facility] MCHC 31.9 (L) 32.0 - [facility] 35.7 gm/dL [facility] Platelets 236 145 - 357 [facility] x10(3)/[facility] LABORATORY RDWSD 53.5 (H) 36.0 - [facility] 45.0 [facility] LABORATORY RDWCV 16.3 (H) 11.4 - [facility] 13.8 % [facility] MPV 8.8 7.6 - 12.9 [facility] LABORATORY nRBC % Auto 0.0 % [facility] nRBC Abs Auto 0.000 0.000 - BARBAR[facility] DAVIS 0.000 [facility] x10(3)/[facility] LABORATORY Specimen Anatomical Collection Method Collection Time Receive d Time (Source) Location / / Volume Laterality Blood specimen 08/11/2017 6:16 AM 018 6:24 (specimen) EST AM EST Resulting Agency Comment Spec In Lab Yonathan Smith MD HEMATOLOGY ORDERABLES Performing Organization Address City/State/[place] [address] (ABNORMAL) Prothrombin Time (08/11/2017 6:16 AM EST) P athologist Signature PT 15.5 (H) 11.8 - 14.0 [facility] LABORATORY INR 1.3 (H) 0.9 - 1.1 [facility] Comment: An INR [...] Organization Address City/State/[place] [address] Basic Metabolic Panel (non-fasting) (08/11/2017 6:16 AM EST) P athologist Signature Glucose Lvl 139 65 - 199 [facility] mg/dL [facility] Comment: Diabetes: >=200 mg/dL plus symp toms BUN 12 10 - 20 mg/dL [facility] Creatinine 0.91 0.80 - 1.50 mg/dL [facility] Sodium 138 135 - 145 mmol/L [facility] LABORATORY [...] Chloride 98 98 - 107 mmol/L [facility] CO2 27 22 - 31 mmol/L [facility] Anion Gap 13 5 - 15 mmol/L [facility] Calcium 8.5 8.5 - 10.5 mg/dL [facility] Estimated GFR >60 >=60 [facility] Comment: The reported eGFR should be multiplied b y 1.2 for patients. The MDRD is not an appropriate measure o f renal function for patients with body mass extremes or in patients with acute kidney failure. http://Clipcopia.Relaborate/DHnkdep http://GlampingHub.com/DHMCnkf Specimen Anatomical Collection Method Collection Time Receive d Time (Source) Location / / Volume Laterality Blood specimen 08/11/2017 6:16 AM 018 6:24 (specimen) EST AM EST Resulting Agency Comment Spec In Lab Yonathan Smith MD CHEMISTRY ORDERABLES Performing Organization Address City/State/Z[place] [address] POCT Glucose (08/11/2017 4:07 AM EST) athologist Signature POC Glucose 162 65 - 199 [facility] mg/dL [facility] Comment: Supplemental ranges: <140 mg/dL before meals <180 mg/dL all other times of the day Specimen Anatomical Collection Method Collection Time Receive d Time (Source) Location / / Volume Laterality Blood specimen 08/11/2017 4:07 AM 018 4:07 (specimen) EST AM EST Yonathan Smith MD POINT OF CARE TEST ORDERABLE S Performing Organization Address City/[facility]/ZIP Code Phon e Number [address] POCT Glucose (08/10/2017 11:59 PM EST) athologist Signature POC Glucose 166 65 - 199 BARBARA ZHAORYAN mg/dL [facility] Comment: Supplemental ranges: <140 mg/dL before meals <180 mg/dL all other times of the day Specimen Anatomical Collection Method Collection Time Receive d Time (Source) Location / / Volume Laterality Blood specimen 08/10/2017 11:59 8 (specimen) PM EST 11:59 PM EST Yonathan Smith MD POINT OF CARE TEST ORDERABLE S Performing Organization Address City/[facility]/ZIP Code Phon e Number [address] POCT Glucose (08/10/2017 8:12 PM EST) athologist Signature POC Glucose 156 65 - 199 BARBARA ZHAORYAN mg/dL [facility] Comment: Supplemental ranges: <140 mg/dL before meals <180 mg/dL all other times of the day Specimen Anatomical Collection Method Collection Time Receive d Time (Source) Location / / Volume Laterality Blood specimen 08/10/2017 8:12 PM 018 8:12 (specimen) EST PM EST Yonathan Smith MD POINT OF CARE TEST ORDERABLE S Performing Organization Address City/[facility]/[place] [address] (ABNORMAL) POCT Glucose (08/10/2017 4:42 PM EST) athologist Signature POC Glucose 211 (H) 65 - 199 [facility] mg/dL [facility] Comment: Supplemental ranges: <140 mg/dL before meals <180 mg/dL all other times of the day Specimen Anatomical Collection Method Collection Time Receive d Time (Source) Location / / Volume Laterality Blood specimen 08/10/2017 4:42 PM 018 4:42 (specimen) EST PM EST Yonathan Smith MD POINT OF CARE TEST ORDERABLE S Performing Organization Address City/State/ZIP Code Phon e Number [place] [phone]OSPITAL LAB[address]ORY Drive (ABNORMAL) Differential, Automated (08/10/2017 2:30 PM EST) [facility] Method Time Signature Neutrophils % 87.6 % [facility] Neutr Abs (ANC) 9.90 (H) 1.70 - [facility] 6.10 [facility] x10(3)/[facility] L LABORATORY Lymphocytes % 4.3 % [facility] Lymphocytes Abs 0.5 (L) 0.9 - 3.2 [facility] x10(3)/[facility] LABORATORY Monocytes % 6.0 % [facility] Monocyte Abs 0.7 0.3 - 0.9 [facility] x10(3)/[facility] LABORATORY Eosinophils % 1.1 % [facility] Eosinophils Abs 0.1 0.0 - 0.4 [facility] x10(3)/[facility] LABORATORY Basophils % 0.4 % [facility] Basophils Abs 0.0 0.0 - 0.1 [facility] x10(3)/[facility] LABORATORY Immature Gran % 0.60 % [facility] Comment: Immature granulocytes(IG's)percentage an d absolute count will include metamyelocytes, myelocytes, and promyelo cytes. Blood smears from CBCs yielding IG's will be scanned manually for concor dance. If this scan disagrees with the automated IG or if promyelocytes are not ed, a manual differential will be performed. Melisa Gran Abs 0.07 (H) 0.00 - 0.04 x10(3)/[facility] LABORATORY Specimen Anatomical Collection Method Collection Time Receive d Time (Source) Location / / Volume Laterality Blood specimen 08/10/2017 2:30 PM 018 2:48 (specimen) EST PM EST Resulting Agency Comment Spec In Lab Yonathan Smith MD HEMATOLOGY ORDERABLES Performing Organization Address City/State/[place] [address] (ABNORMAL) Hemogram (08/10/2017 2:30 PM EST) Analysis Performed At Patho logist Time Signature WBC 11.3 (H) 4.0 - 9.5 [place] x10(3)/[facility] LABORATORY RBC 3.13 (L) 4.58 - [place] RYAN 5.54 [facility] x10(6)/[facility] LABORATORY Hemoglobin 8.9 (L) 13.7 - [facility] 16.[facility] gm/dL [facility] LABORATORY Hematocrit 28.4 (L) 40.5 - [facility] 48.5 % [facility] LABORATORY MCV 90.7 82.9 - [facility] 93.1 [facility] LABORATORY MCH 28.4 27.5 - [facility] 32.1 pg [facility] LABORATORY MCHC 31.3 (L) 32.0 - [facility] 35.7 gm/dL [facility] LABORATORY Platelets 213 145 - 357 [facility] x10(3)/[facility] LABORATORY RDWSD 53.7 (H) 36.0 - [facility] 45.0 [facility] LABORATORY RDWCV 16.4 (H) 11.4 - [facility] 13.8 % [facility] LABORATORY MPV 8.9 7.6 - 12.9 [facility] LABORATORY nRBC % Auto 0.0 % [facility] LABORATORY nRBC Abs Auto 0.000 0.000 - [place] RYAN 0.000 [facility] x10(3)/[facility] LABORATORY Specimen Anatomical Collection Method Collection Time Receive d Time (Source) Location / / Volume Laterality Blood specimen 08/10/2017 2:30 PM 018 2:48 (specimen) EST PM EST Resulting Agency Comment Spec In Lab Yonathan Smith MD HEMATOLOGY ORDERABLES Performing Organization Address City/State/[place] [address] (ABNORMAL) POCT Glucose (08/10/2017 1:50 PM EST) P athologist Signature POC Glucose 243 (H) 65 - 199 [facility]/dL [facility] LABORATORY Comment: Supplemental ranges: <140 mg/dL before meals <180 mg/dL all other times of the day Specimen Anatomical Collection Method Collection Time Receive d Time (Source) Location / / Volume Laterality Blood specimen 08/10/2017 1:50 PM 018 1:50 (specimen) EST PM EST Yonathan Smith MD POINT OF CARE TEST ORDERABLE S Performing Organization Address City/State/ZIP Code Phon e Number [address] POCT Glucose (08/10/2017 11:21 AM EST) P athologist Signature POC Glucose 156 65 - 199 [facility] mg/dL [facility] LABORATORY Comment: Supplemental ranges: <140 mg/dL before meals <180 mg/dL all other times of the day Specimen Anatomical Collection Method Collection Time Receive d Time (Source) Location / / Volume Laterality Blood specimen 08/10/2017 11:21 8 (specimen) AM EST 11:21 AM EST Yonathan Smith MD POINT OF CARE TEST ORDERABLE S Performing Organization Address City/State/ZIP Code Phon e Number [address] (ABNORMAL) Differential, Automated (08/10/2017 10:28 AM EST) Patholo gist Method Time Signature Neutrophils % 85.3 % [facility] LABORATORY Neutr Abs (ANC) 9.43 (H) 1.70 - [facility] 6.10 [facility] x10(3)/[facility] L LABORATORY Lymphocytes % 5.5 % [facility] LABORATORY Lymphocytes Abs 0.6 (L) 0.9 - 3.2 [facility] x10(3)/[facility] LABORATORY Monocytes % 5.9 % [facility] LABORATORY Monocyte Abs 0.6 0.3 - 0.9 [facility] x10(3)/[facility] LABORATORY Eosinophils % 2.1 % [facility] LABORATORY Eosinophils Abs 0.2 0.0 - 0.4 [facility] x10(3)/[facility] LABORATORY Basophils % 0.4 % [facility] LABORATORY Basophils Abs 0.0 0.0 - 0.1 [facility] x10(3)/[facility] LABORATORY Immature Gran % 0.80 % [facility] LABORATORY Comment: Immature granulocytes(IG's)percentage an d absolute count will include metamyelocytes, myelocytes, and promyelo cytes. Blood smears from CBCs yielding IG's will be scanned manually for concor dance. If this scan disagrees with the automated IG or if promyelocytes are not ed, a manual differential will be performed. Melisa Gran Abs 0.09 (H) 0.00 - 0.04 x10(3)/[facility] LABORATORY Specimen Anatomical Collection Method Collection Time Receive d Time (Source) Location / / Volume Laterality Blood specimen 08/10/2017 10:28 8 (specimen) AM EST 10:35 AM EST Resulting Agency Comment Spec In Lab Yonathan Smith MD HEMATOLOGY ORDERABLES Performing Organization Address City/State/Z[place] [address] (ABNORMAL) Hemogram (08/10/2017 10:28 AM EST) Analysis Performed At Patho logist Time Signature WBC 11.0 (H) 4.0 - 9.5 [facility] x10(3)/[facility] LABORATORY RBC 3.02 (L) 4.58 - [facility] 5.54 [facility] x10(6)/[facility] LABORATORY Hemoglobin 8.8 (L) 13.7 - [facility] 16.5 gm/dL [facility] LABORATORY Hematocrit 28.1 (L) 40.5 - [facility] 48.5 % [facility] LABORATORY MCV 93.0 82.9 - [facility] 93.1 [facility] LABORATORY MCH 29.1 27.5 - [facility] 32.1 pg [facility] LABORATORY MCHC 31.3 (L) 32.0 - [facility] 35.7 gm/dL [facility] LABORATORY Platelets 207 145 - 357 [facility] x10(3)/[facility] LABORATORY RDWSD 55.3 (H) 36.0 - [facility] 45.0 [facility] LABORATORY RDWCV 16.4 (H) 11.4 - [facility] 13.8 % [facility] LABORATORY MPV 9.0 7.6 - 12.9 [facility] LABORATORY nRBC % Auto 0.0 % [facility] LABORATORY nRBC Abs Auto 0.000 0.000 - [place] 0.000 [facility] x10(3)/[facility] LABORATORY Specimen Anatomical Collection Method Collection Time Receive d Time (Source) Location / / Volume Laterality Blood specimen 08/10/2017 10:28 8 (specimen) AM EST 10:35 AM EST Resulting Agency Comment Spec In Lab Yonathan Smith MD HEMATOLOGY ORDERABLES Performing Organization Address City/State/ZIP Code Phon e Number [place] [id number] HOSPITAL LAB[address]ORY [address] VS Angiogram/intervention (vascular) (08/10/2017 [...] 2.5x80 5. Completion RLE angiogram 6. L COMPOUNDER angiogram 7. 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 - L COMPOUNDER angriogram demonstrated: High fe moral bifurcation over the proximal half of the femoral head. L COMPOUNDER access in the distal L COMPOUNDER. - Closure device: Mynx Technical Procedure: ?The [...] for a 45cm 5F Destination. V18 and [place] a nd QuickCross catheters were used to [...] bifurcation. Access appeared in the distal R COMPOUNDER. Closure and sheath removal was performed with [...] 2.5x80 5. Completion RLE angiogram 6. L COMPOUNDER angiogram 7. 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 - L COMPOUNDER angriogram demonstrated: High fe moral bifurcation over the proximal half of the femoral head. L COMPOUNDER access in the distal L COMPOUNDER. - Closure device: Mynx Technical Procedure: The [...] for a 45cm 5F Destination. V18 and [place] a nd QuickCross catheters were used to [...] bifurcation. Access appeared in the distal R COMPOUNDER. Closure and sheath removal was performed with [...] (ABNORMAL) Differential, Automated (08/10/2017 5:50 AM EST) [facility] Method Time Signature Neutrophils % 80.1 % [facility] LABORATORY Neutr Abs (ANC) 9.01 (H) 1.70 - [facility] 6.10 [facility] x10(3)/[facility] LABORATORY Lymphocytes % 8.8 % [facility] LABORATORY Lymphocytes Abs 1.0 0.9 - 3.2 [facility] x10(3)/[facility] LABORATORY Monocytes % 8.3 % [facility] LABORATORY Monocyte Abs 0.9 0.3 - 0.9 [facility] x10(3)/[facility] LABORATORY Eosinophils % 2.0 % [facility] LABORATORY Eosinophils Abs 0.2 0.0 - 0.4 [facility] x10(3)/[facility] LABORATORY Basophils % 0.4 % [facility] LABORATORY Basophils Abs 0.0 0.0 - 0.1 [facility] x10(3)/[facility] LABORATORY Immature Gran % 0.40 % [facility] LABORATORY Comment: Immature granulocytes(IG's)percentage an d absolute count will include metamyelocytes, myelocytes, and promyelo cytes. Blood smears from CBCs yielding IG's will be scanned manually for concor dance. If this scan disagrees with the automated IG or if promyelocytes are not ed, a manual differential will be performed. Melisa Gran Abs 0.05 (H) 0.00 - 0.04 x10(3)/[facility] LABORATORY Specimen Anatomical Collection Method Collection Time Receive d Time (Source) Location / / Volume Laterality Blood specimen 08/10/2017 5:50 AM 018 5:59 (specimen) EST AM EST Resulting Agency Comment Spec In Lab Yonathan Smith MD HEMATOLOGY ORDERABLES Performing Organization Address City/State/Z[place] [address] (ABNORMAL) Hemogram (08/10/2017 5:50 AM EST) Analysis Performed At Patho logist Time Signature WBC 11.3 (H) 4.0 - 9.5 [facility] x10(3)/[facility] LABORATORY RBC 3.15 (L) 4.58 - [facility] RYAN 5.54 [facility] x10(6)/[facility] LABORATORY Hemoglobin 8.9 (L) 13.7 - [facility] 16.5 gm/dL [facility] LABORATORY Hematocrit 29.0 (L) 40.5 - [facility] 48.5 % [facility] LABORATORY MCV 92.1 82.9 - [facility] 93.1 [facility] LABORATORY MCH 28.3 27.5 - [place] RYAN 32.1 pg [facility] LABORATORY MCHC 30.7 (L) 32.0 - [facility] 35.7 gm/dL [facility] LABORATORY Platelets 231 145 - 357 [facility] x10(3)/[facility] LABORATORY RDWSD 53.9 (H) 36.0 - [facility] RYAN 45.0 [facility] LABORATORY RDWCV 16.2 (H) 11.4 - [facility] RYAN 13.8 % [facility] LABORATORY MPV 8.7 7.6 - 12.9 [facility] RYAN [facility] LABORATORY nRBC % Auto 0.0 % [facility] LABORATORY nRBC Abs Auto 0.000 0.000 - [facility] RYAN 0.000 [facility] x10(3)/[facility] LABORATORY Specimen Anatomical Collection Method Collection Time Receive d Time (Source) Location / / Volume Laterality Blood specimen 08/10/2017 5:50 AM 018 5:59 (specimen) EST AM EST Resulting Agency Comment Spec In Lab Yonathan Smith MD HEMATOLOGY ORDERABLES Performing Organization Address City/State/[place] [address] (ABNORMAL) Basic Metabolic Panel (non-fasting) (08/10/2017 5:50 AM EST) P athologist Signature Glucose Lvl 135 65 - 199 [facility] mg/dL [facility] LABORATORY Comment: Diabetes: >=200 mg/dL plus symp toms BUN 17 10 - 20 mg/dL [facility] [...] estions. Chloride 104 98 - 107 mmol/L [facility] LABORATORY CO2 27 22 - 31 mmol/L [facility] LABORATORY Anion Gap 13 5 - 15 mmol/L [facility] LABORATORY Calcium 8.1 (L) 8.5 - 10.5 mg/dL [facility] LABORATORY Estimated GFR >60 >=60 [facility] LABORATORY Comment: The reported eGFR should be multiplied b y 1.2 for patients. The MDRD is not an appropriate measure o f renal function for patients with body mass extremes or in patients with acute kidney failure. http://Clipcopia.Relaborate/DHnkdep http://Clipcopia.Relaborate/DHMCnkf Specimen Anatomical Collection Method Collection Time Receive d Time (Source) Location / / Volume Laterality Blood specimen 08/10/2017 5:50 AM 018 5:59 (specimen) EST AM EST Resulting Agency Comment Spec In Lab Yonathan Smith MD CHEMISTRY ORDERABLES Performing Organization Address City/State/ZIP Code Phon e Number [address] (ABNORMAL) Prothrombin Time (08/10/2017 5:50 AM EST) athologist Signature PT 16.8 (H) 11.8 - 14.0 [facility] LABORATORY INR 1.4 (H) 0.9 - 1.1 [facility] LABORATORY Comment: An INR [...] City/[facility]/[place] [address] (ABNORMAL) POCT Glucose (08/10/2017 4:01 AM EST) athologist Signature POC Glucose 206 (H) 65 - 199 [facility] mg/dL [facility] LABORATORY Comment: Supplemental ranges: <140 mg/dL before meals <180 mg/dL all other times of the day Specimen Anatomical Collection Method Collection Time Receive d Time (Source) Location / / Volume Laterality Blood specimen 08/10/2017 4:01 AM 018 4:01 (specimen) EST AM EST Yonathan Smith MD POINT OF CARE TEST ORDERABLE S Performing Organization Address City/State/ZIP Code Phon e Number [address] POCT Glucose (08/10/2017 2:01 AM EST) athologist Signature POC Glucose 188 65 - 199 [facility] mg/dL [facility] LABORATORY Comment: Supplemental ranges: <140 mg/dL before meals <180 mg/dL all other times of the day Specimen Anatomical Collection Method Collection Time Receive d Time (Source) Location / / Volume Laterality Blood specimen 08/10/2017 2:01 AM 018 2:01 (specimen) EST AM EST Yonathan Smith MD POINT OF CARE TEST ORDERABLE S Performing Organization Address City/[facility]/[place] [address] (ABNORMAL) POCT Glucose (08/09/2017 11:42 PM EST) athologist Signature POC Glucose 283 (H) 65 - 199 [facility] mg/dL [facility] LABORATORY Comment: Supplemental ranges: <140 mg/dL before meals <180 mg/dL all other times of the day Specimen Anatomical Collection Method Collection Time Receive d Time (Source) Location / / Volume Laterality Blood specimen 08/09/2017 11:42 8 (specimen) PM EST 11:42 PM EST Yonathan Smith MD POINT OF CARE TEST ORDERABLE S Performing Organization Address City/[facility]/[place] [address] POCT Glucose (08/09/2017 8:55 PM EST) athologist Signature POC Glucose 182 65 - 199 [facility] mg/dL [facility] LABORATORY Comment: Supplemental ranges: <140 mg/dL before meals <180 mg/dL all other times of the day Specimen Anatomical Collection Method Collection Time Receive d Time (Source) Location / / Volume Laterality Blood specimen 08/09/2017 8:55 PM 018 8:55 (specimen) EST PM EST Yonathan Smith MD POINT OF CARE TEST ORDERABLE S Performing Organization Address City/[facility]/[place] [address] (ABNORMAL) APTT (08/09/2017 6:42 PM EST) athologist Signature PTT 90 (H) 25 - 35 sec [facility] LABORATORY Comment: The recommended therapeutic range for fu ll dose, unfractionated heparin at [facility] is 80 ? [...] City/[facility]/ZIP Code Phon e Number [address] POCT Glucose (08/09/2017 4:41 PM EST) athologist Signature POC Glucose 195 65 - 199 [facility] mg/dL [facility] LABORATORY Comment: Supplemental ranges: <140 mg/dL before meals <180 mg/dL all other times of the day Specimen Anatomical Collection Method Collection Time Receive d Time (Source) Location / / Volume Laterality Blood specimen 08/09/2017 4:41 PM 018 4:41 (specimen) EST PM EST Yonathan Smith MD POINT OF CARE TEST ORDERABLE S Performing Organization Address City/[facility]/ZIP Code Phon e Number [address] POCT Glucose (08/09/2017 12:29 PM EST) athologist Signature POC Glucose 140 65 - 199 [facility] mg/dL [facility] LABORATORY Comment: Supplemental ranges: <140 mg/dL before meals <180 mg/dL all other times of the day Specimen Anatomical Collection Method Collection Time Receive d Time (Source) Location / / Volume Laterality Blood specimen 08/09/2017 12:29 8 (specimen) PM EST 12:29 PM EST Yonathan Smith MD POINT OF CARE TEST ORDERABLE S Performing Organization Address City/State/ZIP Code Phon e Number [address] POCT Glucose (08/09/2017 9:59 AM EST) athologist Signature POC Glucose 135 65 - 199 [facility] mg/dL [facility] LABORATORY Comment: Supplemental ranges: <140 mg/dL before meals <180 mg/dL all other times of the day Specimen Anatomical Collection Method Collection Time Receive d Time (Source) Location / / Volume Laterality Blood specimen 08/09/2017 9:59 AM 018 9:59 (specimen) EST AM EST Yonathan Smith MD POINT OF CARE TEST ORDERABLE S Performing Organization Address [facility]/[place] [address] Specimen to Pathology (08/09/2017 8:41 AM EST) Specimen Anatomical Collection Method Collection Time Receive d Time (Source) Location / / Volume Laterality AP Specimen 08/09/2017 8:41 AM 8 8:41 EST AM EST Narrative [facility] LABORAT ORY - 08/09/2017 8:41 AM EST Specimen requisition ordered. ??Separate Pathology report to follow Yonathan Smith MD PATHOLOGY/CYTOLOGY ORDERABLE S Performing Organization Address City/[facility]/[place] [address] Surgical Pathology Report (08/09/2017 8:40 AM EST) Component Value Ref Test Analysis Performed At [facility] Range Method Time Signature Surgical [id number] ? Location: [facility]; [facility]; [facility] Report The signing pathologist has (i) examined the relevant preparation(s) for the [facility] specimen(s) and (ii) rendered or confirmed the diagnosis(es) . HOSPITAL LABORATORY . 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 ?Viable proximal resection margins. Electronically signed by: ??Henrique Saravia MD Verified: ??08/13/2017 ?Pathologist Performed at: ??-[facility] Dept. of Pathology, [place], [place] CLINICAL INFORMATION Specimen Submitted: A - [...] Organization Address City/State/[place] [address] Anaerobic Culture (08/09/2017 8:30 AM EST) [facility] gist Method Time Signature Anaerobic No anaerobic [facility] Culture organisms [facility] LABORATORY Specimen Anatomical Collection Method Collection Time [...] Organization Address City/State/[place] [address] (ABNORMAL) Abscess/Wound Aspirate Culture (08/09/2017 8:30 AM EST) Patholo gist Method Time Signature Abscess/Wound Moderate mixed [place] Aspirate bacterial [place] Culture morphotypes [facility] normal LABORATORY cutaneous leroy (A) Gram Stain Rare White Blood Cells BARBARA Few Gram Positive Cocci in pairs [place] (A) [facility] LABORATORY Organism Gram Positive BARBARA Cocci in pairs [place] (A) [facility] LABORATORY Specimen Anatomical Collection Method [...] - GENERAL ORDER ROBSON Performing Organization Address [facility]/ZIP [facility] Phon e Number [address] POCT Glucose (08/09/2017 4:28 AM EST) P athologist Signature POC Glucose 128 65 - 199 [facility] mg/dL [facility] LABORATORY Comment: Supplemental ranges: <140 mg/dL before meals <180 mg/dL all other times of the day Specimen Anatomical Collection Method Collection Time Receive d Time (Source) Location / / Volume Laterality Blood specimen 08/09/2017 4:28 AM 018 4:28 (specimen) EST AM EST Yonathan Smith MD POINT OF CARE TEST ORDERABLE S Performing Organization Address City/[facility]/ZIP Code Phon e Number [address] ABORH Recheck Status (08/09/2017 1:10 AM EST) [facility] gist Method Time Signature ABORH Type Completed [facility] LABORATORY Specimen Anatomical Collection Method Collection Time Receive d Time (Source) Location / / Volume Laterality Blood specimen 08/09/2017 1:10 AM 018 1:35 (specimen) EST AM EST Resulting Agency Comment Spec In Lab Yonathan Smith MD BLOOD BANK ORDERABLES Performing Organization Address City/[facility]/[place] [address] Antibody screen (08/09/2017 1:10 AM EST) Patholo gist Method Time Signature Ab Screen Negative [facility] LABORATORY Expires at 08/12/2017 BARBARA DAVIS [id number] on: [facility] LABORATORY Specimen Anatomical Collection Method Collection Time Receive d Time (Source) Location / / Volume Laterality Blood specimen 08/09/2017 1:10 AM 018 1:35 (specimen) EST AM EST Resulting Agency Comment Spec In Lab Yonathan Smith MD BLOOD BANK ORDERABLES Performing Organization Address City/[facility]/ZIP Code Phon e Number [address] ABO/Rh Typing (08/09/2017 1:10 AM EST) P athologist Signature ABORh Type O Pos [facility] LABORATORY Specimen Anatomical Collection Method Collection Time Receive d Time (Source) Location / / Volume Laterality Blood specimen 08/09/2017 1:10 AM 018 1:35 (specimen) EST AM EST Resulting Agency Comment Spec In Lab Yonathan Smith MD BLOOD BANK ORDERABLES Performing Organization Address City/[facility]/[place] [address] (ABNORMAL) APTT (08/09/2017 1:10 AM EST) P athologist Signature PTT 86 (H) 25 - 35 sec [facility] LABORATORY Comment: The recommended therapeutic range for fu ll dose, unfractionated heparin at [facility] is 80 ? [...] Organization Address City/State/Z[place] [address] [facility] [address] (ABNORMAL) Differential, Automated (08/09/2017 1:10 AM EST) [facility] Method Time Signature Neutrophils % 76.2 % [facility] LABORATORY Neutr Abs (ANC) 8.59 (H) 1.70 - [facility] 6.10 [facility] x10(3)/[facility] LABORATORY Lymphocytes % 11.0 % [facility] LABORATORY Lymphocytes Abs 1.2 0.9 - 3.2 [facility] x10(3)/[facility] LABORATORY Monocytes % 8.4 % [facility] LABORATORY Monocyte Abs 1.0 (H) 0.3 - 0.9 [facility] x10(3)/[facility] LABORATORY Eosinophils % 3.5 % [facility] LABORATORY Eosinophils Abs 0.4 0.0 - 0.4 [facility] x10(3)/[facility] LABORATORY Basophils % 0.5 % [facility] LABORATORY Basophils Abs 0.1 0.0 - 0.1 [facility] x10(3)/[facility] LABORATORY Immature Gran % 0.40 % [facility] LABORATORY Comment: Immature granulocytes(IG's)percentage an d absolute count will include metamyelocytes, myelocytes, and promyelo cytes. Blood smears from CBCs yielding IG's will be scanned manually for concor dance. If this scan disagrees with the automated IG or if promyelocytes are not ed, a manual differential will be performed. Melisa Gran Abs 0.05 (H) 0.00 - 0.04 x10(3)/[facility] LABORATORY Specimen Anatomical Collection Method Collection Time Receive d Time (Source) Location / / Volume Laterality Blood specimen 08/09/2017 1:10 AM 018 1:19 (specimen) EST AM EST Resulting Agency Comment Spec In Lab Yonathan Smith MD HEMATOLOGY ORDERABLES Performing Organization Address City/State/[place] [address] (ABNORMAL) Hemogram (08/09/2017 1:10 AM EST) Analysis Performed At Patho logist Time Signature WBC 11.3 (H) 4.0 - 9.5 [facility] x10(3)/[facility] LABORATORY RBC 3.47 (L) 4.58 - [facility] 5.54 [facility] x10(6)/[facility] LABORATORY Hemoglobin 10.0 (L) 13.7 - [facility] 16.[facility] gm/dL [facility] LABORATORY Hematocrit 31.9 (L) 40.5 - [facility] 48.5 % [facility] LABORATORY MCV 91.9 82.9 - [facility] 93.1 [facility] LABORATORY MCH 28.8 27.5 - [facility] 32.1 pg [facility] LABORATORY MCHC 31.3 (L) 32.0 - [facility] 35.7 gm/dL [facility] LABORATORY Platelets 234 145 - 357 [facility] x10(3)/[facility] LABORATORY RDWSD 54.0 (H) 36.0 - [facility] 45.0 [facility] LABORATORY RDWCV 16.2 (H) 11.4 - [facility] 13.8 % [facility] LABORATORY MPV 8.7 7.6 - 12.9 [facility] LABORATORY nRBC % Auto 0.0 % [facility] LABORATORY nRBC Abs Auto 0.000 0.000 - [facility] 0.000 [facility] x10(3)/[facility] LABORATORY Specimen Anatomical Collection Method Collection Time Receive d Time (Source) Location / / Volume Laterality Blood specimen 08/09/2017 1:10 AM 018 1:19 (specimen) EST AM EST Resulting Agency Comment Spec In Lab Yonathan Smith MD HEMATOLOGY ORDERABLES Performing Organization Address City/State/[place] [address] (ABNORMAL) Prothrombin Time (08/09/2017 1:10 AM EST) P athologist Signature PT 16.0 (H) 11.8 - 14.0 [facility] sec [facility] LABORATORY INR 1.3 (H) 0.9 - [...] Organization Address City/State/[place] [address] (ABNORMAL) Basic Metabolic Panel (non-fasting) (08/09/2017 1:10 AM EST) P athologist Signature Glucose Lvl 108 65 - 199 [facility] mg/dL [facility] LABORATORY Comment: Diabetes: >=200 mg/dL plus symp toms BUN 34 (H) 10 - 20 mg/dL [facility] LABORATORY Creatinine 1.54 (H) 0.80 - 1.50 mg/dL [facility] LABORATORY Sodium 138 135 - 145 mmol/L [facility] LABORATORY Potassium 4.5 3.5 - 5.0 mmol/L [facility] LABORATORY Comment: Please note: ??Patients with WBC >100,00 0 may have falsely elevated Potassium levels. ??For accurate Potassium quantif ication in these patients send serum separator tube (gold top) for subsequent determinations. ??Contact the Clinical Chemistry Laboratory if there are any qu estions. Chloride 96 (L) 98 - 107 mmol/L [facility] LABORATORY CO2 29 22 - 31 mmol/L [facility] LABORATORY Anion Gap 13 5 - 15 mmol/L [facility] LABORATORY Calcium 8.3 (L) 8.5 - 10.5 mg/dL [facility] LABORATORY Estimated GFR 45 (L) >=60 [facility] LABORATORY Comment: The reported eGFR should be multiplied b y 1.2 for patients. The MDRD is not an appropriate measure o f renal function for patients with body mass extremes or in patients with acute kidney failure. http://GlampingHub.com/DHnkdep http://GlampingHub.com/DHMCnkf Specimen Anatomical Collection Method Collection Time Receive d Time (Source) Location / / Volume Laterality Blood specimen 08/09/2017 1:10 AM 018 1:19 (specimen) EST AM EST Resulting Agency Comment Spec In Lab Yonathan Smith MD CHEMISTRY ORDERABLES Performing Organization Address City/[facility]/[place] [address] POCT Glucose (08/09/2017 12:05 AM EST) athologist Signature POC Glucose 128 65 - 199 [facility]dL [facility] LABORATORY Comment: Supplemental ranges: <140 mg/dL before meals <180 mg/dL all other times of the day Specimen Anatomical Collection Method Collection Time Receive d Time (Source) Location / / Volume Laterality Blood specimen 08/09/2017 12:05 8 (specimen) AM EST 12:05 AM EST Yonathan Smith MD POINT OF CARE TEST ORDERABLE S Performing Organization Address City/[facility]/[place] [address] (ABNORMAL) POCT Glucose (08/08/2017 7:36 PM EST) athologist Signature POC Glucose 215 (H) 65 - 199 [facility] mg/dL [facility] LABORATORY Comment: Supplemental ranges: <140 mg/dL before meals <180 mg/dL all other times of the day Specimen Anatomical Collection Method Collection Time Receive d Time (Source) Location / / Volume Laterality Blood specimen 08/08/2017 7:36 PM 018 7:36 (specimen) EST PM EST Yonathan Smith MD POINT OF CARE TEST ORDERABLE S Performing Organization Address City/[facility]/[place] [address] (ABNORMAL) POCT Glucose (08/08/2017 6:23 PM EST) athologist Signature POC Glucose 216 (H) 65 - 199 [facility] mg/dL [facility] LABORATORY Comment: Supplemental ranges: <140 mg/dL before meals <180 mg/dL all other times of the day Specimen Anatomical Collection Method Collection Time Receive d Time (Source) Location / / Volume Laterality Blood specimen 08/08/2017 6:23 PM 018 6:23 (specimen) EST PM EST Yonathan Smith MD POINT OF CARE TEST ORDERABLE S Performing Organization Address City/[facility]/[place] [address] (ABNORMAL) APTT (08/08/2017 6:00 PM EST) athologist Signature PTT 97 (H) 25 - 35 sec [facility] LABORATORY Comment: The recommended therapeutic range for fu ll dose, unfractionated heparin at [facility] is 80 ? [...] City/[facility]/[place] [address] POCT Glucose (08/08/2017 4:42 PM EST) athologist Signature POC Glucose 78 65 - 199 [facility] mg/dL [facility] LABORATORY Comment: Supplemental ranges: <140 mg/dL before meals <180 mg/dL all other times of the day Specimen Anatomical Collection Method Collection Time Receive d Time (Source) Location / / Volume Laterality Blood specimen 08/08/2017 4:42 PM 018 4:42 (specimen) EST PM EST Yonathan Smith MD POINT OF CARE TEST ORDERABLE S Performing Organization Address City/State/[place] [address] (ABNORMAL) POCT Glucose (08/08/2017 4:01 PM EST) athologist Signature POC Glucose 58 (L) 65 - 199 [facility] mg/dL [facility] LABORATORY Comment: Supplemental ranges: <140 mg/dL before meals <180 mg/dL all other times of the day Specimen Anatomical Collection Method Collection Time Receive d Time (Source) Location / / Volume Laterality Blood specimen 08/08/2017 4:01 PM 018 4:01 (specimen) EST PM EST Yonathan Smith MD POINT OF CARE TEST ORDERABLE S Performing Organization Address City/State/ZIP Code Phon e Number [address] POCT Glucose (08/08/2017 11:51 AM EST) athologist Signature POC Glucose 90 65 - 199 [facility] mg/dL [facility] LABORATORY Comment: Supplemental ranges: <140 mg/dL before meals <180 mg/dL all other times of the day Specimen Anatomical Collection Method Collection Time Receive d Time (Source) Location / / Volume Laterality Blood specimen 08/08/2017 11:51 8 (specimen) AM EST 11:51 AM EST Yonathan Smith MD POINT OF CARE TEST ORDERABLE S Performing Organization Address City/State/[place] [address] (ABNORMAL) APTT (08/08/2017 10:27 AM EST) athologist Signature PTT 64 (H) 25 - 35 sec [facility] LABORATORY Comment: The recommended therapeutic range for fu ll dose, unfractionated heparin at [facility] is 80 ? [...] Organization Address City/State/ZIP Code Phon e Number [address] POCT Glucose (08/08/2017 8:02 AM EST) athologist Signature POC Glucose 178 65 - 199 [facility] mg/dL [facility] LABORATORY Comment: Supplemental ranges: <140 mg/dL before meals <180 mg/dL all other times of the day Specimen Anatomical Collection Method Collection Time Receive d Time (Source) Location / / Volume Laterality Blood specimen 08/08/2017 8:02 AM 018 8:02 (specimen) EST AM EST Yonathan Smith MD POINT OF CARE TEST ORDERABLE S Performing Organization Address City/[facility] Phon e Number [address] (ABNORMAL) APTT (08/08/2017 4:51 AM EST) athologist Signature PTT >160 25 - 35 [facility] (Critical) sec [facility] LABORATORY Comment: Called by: HOWARD, Read back by: Melba Jaramillo, Date/Time:08/08/17 05:43. The recommended therapeutic range for fu ll dose, unfractionated heparin at [facility] is 80 ? [...] City/[facility]/ZIP Code Phon e Number [address] (ABNORMAL) Differential, Automated (08/08/2017 4:51 AM EST) Patholo gist Method Time Signature Neutrophils % 77.9 % [facility] LABORATORY Neutr Abs (ANC) 8.17 (H) 1.70 - [facility] 6.10 [facility] x10(3)/[facility] LABORATORY Lymphocytes % 10.3 % [facility] LABORATORY Lymphocytes Abs 1.1 0.9 - 3.2 [facility] x10(3)/[facility] LABORATORY Monocytes % 7.0 % [facility] LABORATORY Monocyte Abs 0.7 0.3 - 0.9 [facility] x10(3)/[facility] LABORATORY Eosinophils % 3.6 % [facility] LABORATORY Eosinophils Abs 0.4 0.0 - 0.4 [facility] x10(3)/[facility] LABORATORY Basophils % 0.5 % [facility] LABORATORY Basophils Abs 0.0 0.0 - 0.1 [facility] x10(3)/[facility] LABORATORY Immature Gran % 0.70 % [facility] LABORATORY Comment: Immature granulocytes(IG's)percentage an d absolute count will include metamyelocytes, myelocytes, and promyelo cytes. Blood smears from CBCs yielding IG's will be scanned manually for concor dance. If this scan disagrees with the automated IG or if promyelocytes are not ed, a manual differential will be performed. Melisa Gran Abs 0.07 (H) 0.00 - 0.04 x10(3)/[facility] LABORATORY Specimen Anatomical Collection Method Collection Time Receive d Time (Source) Location / / Volume Laterality Blood specimen 08/08/2017 4:51 AM 018 5:14 (specimen) EST AM EST Resulting Agency Comment Spec In Lab Yonathan Smith MD HEMATOLOGY ORDERABLES Performing Organization Address City/State/[place] [address] (ABNORMAL) Hemogram (08/08/2017 4:51 AM EST) Analysis Performed At Patho logist Time Signature WBC 10.5 (H) 4.0 - 9.5 [facility] x10(3)/[facility] LABORATORY RBC 3.27 (L) 4.58 - [facility] 5.54 [facility] x10(6)/[facility] LABORATORY Hemoglobin 9.3 (L) 13.7 - [facility] 16.5 gm/dL [facility] LABORATORY Hematocrit 30.3 (L) 40.5 - [facility] 48.5 % [facility] LABORATORY MCV 92.7 82.9 - [facility] 93.1 [facility] LABORATORY MCH 28.4 27.5 - [facility] 32.1 pg [facility] LABORATORY MCHC 30.7 (L) 32.0 - [facility] 35.7 gm/dL [facility] LABORATORY Platelets 252 145 - 357 [facility] x10(3)/[facility] LABORATORY RDWSD 54.6 (H) 36.0 - [facility] 45.0 [facility] LABORATORY RDWCV 16.2 (H) 11.4 - [facility] 13.8 % [facility] LABORATORY MPV 9.1 7.6 - 12.9 [facility] LABORATORY nRBC % Auto 0.0 % [facility] LABORATORY nRBC Abs Auto 0.000 0.000 - [facility] 0.000 [facility] x10(3)/[facility] LABORATORY Specimen Anatomical Collection Method Collection Time Receive d Time (Source) Location / / Volume Laterality Blood specimen 08/08/2017 4:51 AM 018 5:14 (specimen) EST AM EST Resulting Agency Comment Spec In Lab Yonathan Smith MD HEMATOLOGY ORDERABLES Performing Organization Address City/State/[place] [address] (ABNORMAL) Prothrombin Time (08/08/2017 4:51 AM EST) P athologist Signature PT 18.1 (H) 11.8 - 14.0 [facility] LABORATORY INR 1.5 (H) 0.9 - 1.1 [facility] LABORATORY Comment: An INR [...] Organization Address City/State/[place] [address] (ABNORMAL) Basic Metabolic Panel (non-fasting) (08/08/2017 4:51 AM EST) athologist Signature Glucose Lvl 229 (H) 65 - 199 [facility] mg/dL [facility] LABORATORY Comment: Diabetes: >=200 mg/dL plus symp toms BUN 35 (H) 10 - 20 mg/dL [facility] LABORATORY Creatinine 1.57 (H) 0.80 - 1.50 mg/dL [facility] LABORATORY Sodium 136 135 - 145 mmol/L [facility] LABORATORY Potassium 4.5 3.5 - 5.0 mmol/L [facility] LABORATORY Comment: Please note: ??Patients with WBC >100,00 0 may have falsely elevated Potassium levels. ??For accurate Potassium quantif ication in these patients send serum separator tube (gold top) for subsequent determinations. ??Contact the Clinical Chemistry Laboratory if there are any qu estions. Chloride 94 (L) 98 - 107 mmol/L [facility] LABORATORY CO2 25 22 - 31 mmol/L [facility] LABORATORY Anion Gap 17 (H) 5 - 15 mmol/L [facility] LABORATORY Calcium 7.9 (L) 8.5 - 10.5 mg/dL [facility] LABORATORY Estimated GFR 44 (L) >=60 [facility] LABORATORY Comment: The reported eGFR should be multiplied b y 1.2 for patients. The MDRD is not an appropriate measure o f renal function for patients with body mass extremes or in patients with acute kidney failure. http://Clipcopia.Relaborate/DHnkdep http://[email or web address]/[facility] Specimen Anatomical Collection Method Collection Time Receive d Time (Source) Location / / Volume Laterality Blood specimen 08/08/2017 4:51 AM 018 5:14 (specimen) EST AM EST Resulting Agency Comment Spec In Lab Yonathan Smith MD CHEMISTRY ORDERABLES Performing Organization Address City/[facility]/ZIP Code Phon e Number [address] POCT Glucose (08/08/2017 4:20 AM EST) athologist Signature POC Glucose 193 65 - 199 [facility] mg/dL [facility] LABORATORY Comment: Supplemental ranges: <140 mg/dL before meals <180 mg/dL all other times of the day Specimen Anatomical Collection Method Collection Time Receive d Time (Source) Location / / Volume Laterality Blood specimen 08/08/2017 4:20 AM 018 4:20 (specimen) EST AM EST Yonathan Smith MD POINT OF CARE TEST ORDERABLE S Performing Organization Address City/[facility]/ZIP Code Phon e Number [address] POCT Glucose (08/07/2017 11:11 PM EST) athologist Signature POC Glucose 124 65 - 199 [facility] mg/dL [facility] LABORATORY Comment: Supplemental ranges: <140 mg/dL before meals <180 mg/dL all other times of the day Specimen Anatomical Collection Method Collection Time Receive d Time (Source) Location / / Volume Laterality Blood specimen 08/07/2017 11:11 8 (specimen) PM EST 11:11 PM EST Yonathan Smith MD POINT OF CARE TEST ORDERABLE S Performing Organization Address City/[facility]/ZIP Code Phon e Number [address] (ABNORMAL) APTT (08/07/2017 10:18 PM EST) athologist Signature PTT 114 (H) 25 - 35 sec [facility] LABORATORY Comment: The recommended therapeutic range for fu ll dose, unfractionated heparin at [facility] is 80 ? [...] Organization Address City/State/ZIP Code Phon e Number [address] POCT Glucose (08/07/2017 8:10 PM EST) athologist Signature POC Glucose 140 65 - 199 [facility] mg/dL [facility] LABORATORY Comment: Supplemental ranges: <140 mg/dL before meals <180 mg/dL all other times of the day Specimen Anatomical Collection Method Collection Time Receive d Time (Source) Location / / Volume Laterality Blood specimen 08/07/2017 8:10 PM 018 8:10 (specimen) EST PM EST Yonathan Smith MD POINT OF CARE TEST ORDERABLE S Performing Organization Address City/[facility]/ZIP Code Phon e Number [address] POCT Glucose (08/07/2017 5:27 PM EST) athologist Signature POC Glucose 187 65 - 199 [facility] mg/dL [facility] LABORATORY Comment: Supplemental ranges: <140 mg/dL before meals <180 mg/dL all other times of the day Specimen Anatomical Collection Method Collection Time Receive d Time (Source) Location / / Volume Laterality Blood specimen 08/07/2017 5:27 PM 018 5:27 (specimen) EST PM EST Yonathan Smith MD POINT OF CARE TEST ORDERABLE S Performing Organization Address City/[facility]/ZIP Code Phon e Number [address] POCT Glucose (08/07/2017 3:29 PM EST) athologist Signature POC Glucose 86 65 - 199 [facility] mg/dL [facility] LABORATORY Comment: Supplemental ranges: <140 mg/dL before meals <180 mg/dL all other times of the day Specimen Anatomical Collection Method Collection Time Receive d Time (Source) Location / / Volume Laterality Blood specimen 08/07/2017 3:29 PM 018 3:29 (specimen) EST PM EST Yonathan Smith MD POINT OF CARE TEST ORDERABLE S Performing Organization Address City/[facility]/[place] [address] (ABNORMAL) APTT (08/07/2017 2:50 PM EST) athologist Signature PTT 60 (H) 25 - 35 sec [facility] LABORATORY Comment: The recommended therapeutic range for fu ll dose, unfractionated heparin at [facility] is 80 ? [...] City/[facility]/[place] [address] (ABNORMAL) POCT Glucose (08/07/2017 2:23 PM EST) athologist Signature POC Glucose 55 (L) 65 - 199 [facility] mg/dL [facility] LABORATORY Comment: Supplemental ranges: <140 mg/dL before meals <180 mg/dL all other times of the day Specimen Anatomical Collection Method Collection Time Receive d Time (Source) Location / / Volume Laterality Blood specimen 08/07/2017 2:23 PM 018 2:23 (specimen) EST PM EST Yonathan Smith MD POINT OF CARE TEST ORDERABLE S Performing Organization Address City/[facility]/[place] [address] POCT Glucose (08/07/2017 12:08 PM EST) P athologist Signature POC Glucose 77 65 - 199 [facility] mg/dL [facility] LABORATORY Comment: Supplemental ranges: <140 mg/dL before meals <180 mg/dL all other times of the day Specimen Anatomical Collection Method Collection Time Receive d Time (Source) Location / / Volume Laterality Blood specimen 08/07/2017 12:08 8 (specimen) PM EST 12:08 PM EST Yonathan Smith MD POINT OF CARE TEST ORDERABLE S Performing Organization Address City/State/[place] [address] (ABNORMAL) Differential, Automated (08/07/2017 7:30 AM EST) Patholo gist Method Time Signature Neutrophils % 73.8 % [facility] LABORATORY Neutr Abs (ANC) 7.17 (H) 1.70 - [facility] 6.10 [facility] x10(3)/[facility] LABORATORY Lymphocytes % 12.2 % [facility] LABORATORY Lymphocytes Abs 1.2 0.9 - 3.2 [facility] x10(3)/[facility] LABORATORY Monocytes % 9.0 % [facility] LABORATORY Monocyte Abs 0.9 0.3 - 0.9 [facility] x10(3)/[facility] LABORATORY Eosinophils % 3.9 % [facility] LABORATORY Eosinophils Abs 0.4 0.0 - 0.4 [facility] x10(3)/[facility] LABORATORY Basophils % 0.6 % [facility] LABORATORY Basophils Abs 0.1 0.0 - 0.1 [facility] x10(3)/[facility] LABORATORY Immature Gran % 0.50 % [facility] LABORATORY Comment: Immature granulocytes(IG's)percentage an d absolute count will include metamyelocytes, myelocytes, and promyelo cytes. Blood smears from CBCs yielding IG's will be scanned manually for concor dance. If this scan disagrees with the automated IG or if promyelocytes are not ed, a manual differential will be performed. Melisa Gran Abs 0.05 (H) 0.00 - 0.04 x10(3)/[facility] LABORATORY Specimen Anatomical Collection Method Collection Time Receive d Time (Source) Location / / Volume Laterality Blood specimen 08/07/2017 7:30 AM 018 7:45 (specimen) EST AM EST Resulting Agency Comment Spec In Lab Yonathan Smith MD HEMATOLOGY ORDERABLES Performing Organization Address City/State/[place] [address] (ABNORMAL) Hemogram (08/07/2017 7:30 AM EST) Analysis Performed At Patho logist Time Signature WBC 9.7 (H) 4.0 - 9.5 [facility] x10(3)/[facility] LABORATORY RBC 3.54 (L) 4.58 - [facility] 5.54 [facility] x10(6)/[facility] LABORATORY Hemoglobin 9.9 (L) 13.7 - [facility] 16.5 gm/dL [facility] LABORATORY Hematocrit 32.3 (L) 40.5 - [facility] 48.5 % [facility] LABORATORY MCV 91.2 82.9 - [facility] 93.1 [facility] LABORATORY MCH 28.0 27.5 - [facility] 32.1 pg [facility] LABORATORY MCHC 30.7 (L) 32.0 - [facility] 35.7 gm/dL [facility] LABORATORY Platelets 312 145 - 357 [facility] x10(3)/[facility] LABORATORY RDWSD 53.2 (H) 36.0 - [facility] 45.0 [facility] LABORATORY RDWCV 16.0 (H) 11.4 - [facility] 13.8 % [facility] LABORATORY MPV 8.9 7.6 - 12.9 [facility] LABORATORY nRBC % Auto 0.0 % [facility] LABORATORY nRBC Abs Auto 0.000 0.000 - [facility] 0.000 [facility] x10(3)/[facility] LABORATORY Specimen Anatomical Collection Method Collection Time Receive d Time (Source) Location / / Volume Laterality Blood specimen 08/07/2017 7:30 AM 018 7:45 (specimen) EST AM EST Resulting Agency Comment Spec In Lab Yonathan Smith MD HEMATOLOGY ORDERABLES Performing Organization Address City/[facility]/[place] [address] (ABNORMAL) Basic Metabolic Panel (non-fasting) (08/07/2017 7:30 AM EST) athologist Signature Glucose Lvl 80 65 - 199 [facility] mg/dL [facility] Comment: Diabetes: >=200 mg/dL plus symp toms BUN 31 (H) 10 - 20 mg/dL [facility] Creatinine 1.22 0.80 - 1.50 mg/dL [facility] Sodium 140 135 - 145 mmol/L [facility] Potassium 4.5 3.5 - 5.0 mmol/L [facility] Comment: Please note: ??Patients with WBC >100,00 0 may have falsely elevated Potassium levels. ??For accurate Potassium quantif ication in these patients send serum separator tube (gold top) for subsequent determinations. ??Contact the Clinical Chemistry Laboratory if there are any qu estions. Chloride 99 98 - 107 mmol/L [facility] CO2 29 22 - 31 mmol/L [facility] Anion Gap 12 5 - 15 mmol/L [facility] Calcium 8.5 8.5 - 10.5 mg/dL [facility] Estimated GFR 59 (L) >=60 [facility] Comment: The reported eGFR should be multiplied b y 1.2 for patients. The MDRD is not an appropriate measure o f renal function for patients with body mass extremes or in patients with acute kidney failure. http://Clipcopia.Relaborate/DHnkdep http://Clipcopia.Relaborate/DHMCnkf Specimen Anatomical Collection Method Collection Time Receive d Time (Source) Location / / Volume Laterality Blood specimen 08/07/2017 7:30 AM 018 7:45 (specimen) EST AM EST Resulting Agency Comment Spec In Lab Yonathan Smith MD CHEMISTRY ORDERABLES Performing Organization Address City/[facility]/ZIP Code Phon e Number [address] POCT Glucose (08/07/2017 7:27 AM EST) P athologist Signature POC Glucose 81 65 - 199 [facility] mg/dL [facility] Comment: Supplemental ranges: <140 mg/dL before meals <180 mg/dL all other times of the day Specimen Anatomical Collection Method Collection Time Receive d Time (Source) Location / / Volume Laterality Blood specimen 08/07/2017 7:27 AM 018 7:27 (specimen) EST AM EST Yonathan Smith MD POINT OF CARE TEST ORDERABLE S Performing Organization Address City/State/ZIP Code Phon e Number [address] APTT (08/07/2017 7:04 AM EST) athologist Signature PTT 34 25 - 35 sec [facility] Comment: The recommended therapeutic range for fu ll dose, unfractionated heparin at [facility] is 80 ? [...] Organization Address City/State/[place] [address] (ABNORMAL) Prothrombin Time (08/07/2017 7:04 AM EST) athologist Signature PT 17.3 (H) 11.8 - 14.0 [facility] LABORATORY INR 1.4 (H) 0.9 - 1.1 [facility] Comment: An INR [...] Organization Address City/State/ZIP Code Phon e Number [address] POCT Glucose (08/07/2017 4:03 AM EST) athologist Signature POC Glucose 93 65 - 199 [facility] mg/dL [facility] Comment: Supplemental ranges: <140 mg/dL before meals <180 mg/dL all other times of the day Specimen Anatomical Collection Method Collection Time Receive d Time (Source) Location / / Volume Laterality Blood specimen 08/07/2017 4:03 AM 018 4:03 (specimen) EST AM EST Yonathan Smith MD POINT OF CARE TEST ORDERABLE S Performing Organization Address City/[facility]/[place] [address] POCT Glucose (08/07/2017 12:04 AM EST) athologist Signature POC Glucose 107 65 - 199 [place] mg/dL [facility] Comment: Supplemental ranges: <140 mg/dL before meals <180 mg/dL all other times of the day Specimen Anatomical Collection Method Collection Time Receive d Time (Source) Location / / Volume Laterality Blood specimen 08/07/2017 12:04 8 (specimen) AM EST 12:04 AM EST Yonathan Smith MD POINT OF CARE TEST ORDERABLE S Performing Organization Address City/[facility]/ZIP Code Phon e Number [address] POCT Glucose (08/06/2017 7:56 PM EST) athologist Signature POC Glucose 178 65 - 199 [facility] mg/dL [facility] Comment: Supplemental ranges: <140 mg/dL before meals <180 mg/dL all other times of the day Specimen Anatomical Collection Method Collection Time Receive d Time (Source) Location / / Volume Laterality Blood specimen 08/06/2017 7:56 PM 018 7:56 (specimen) EST PM EST Yonathan Smith MD POINT OF CARE TEST ORDERABLE S Performing Organization Address City/State/[place] [address] TcPO2 (08/06/2017 2:32 PM EST) Component Value Ref Test Analysis Performed At [facility] gist Range Method Time Signature VB Text Department: Vascular Surgery Lab VASCUBASE Report Patient: [id number] (GREGORY HOANG) CPT: 2615085 ICD10: I99.8 Referring Physician: YONATHAN SMITH ?? [...] RN) 0630 (Given - Provider: Mira Truong, AVMSI)1119 (Given - Provider: Dory Truong, VAMSI) 1,000 [...] Mcgrath RN) 0801 (Given - Provider: Dory Truong, VAMSI) 500 [...] Chiquis Mcgrath RN)1212 (Given - Provider: Chiquis Mcgrath, VAMSI)1730 (Given - Provider: Chiquis Mcgrath RN) 0746 [...] BG 124) 0423 (Given - Provider: Mira Truong, RN)0749 (Given - Provider: Dory Truong, RN)1200 (Not Given - Provider: Dory Truong RN - Reason: Patient/family refused) 2-8 Units, Subcutaneous, EVERY 4 HOURS S CHEDULED, First dose on 08/06/17 at 2000, Until Discontinued, CORRECTION BOLUS Moderate BG 140 - 160 Give 2 units BG 161 - 200 Give 4 units BG 201 - 240 Gi 1213 (Given - Provider: Chiquis Mcgrath RN - Comment: BG 141)1729 (Given - Provider: Chiquis Mcgrath, RN - Comment: BG 174)2008 (Given - Provider: Henrique Marks, VAMSI) 1200 (Not Given - Provider: Chiquis Mcgrath RN - Reason: Order parameters not met - Comment: BG 135)1707 (Given - Provider: Chiquis Mcgrath, RN)2024 (Not Given - Provider: Mira Truong [...] mcg 0501 (Given - Provider: Henrique Marks, AVMSI) 0502 (Given - Provider: Henrique Marks, RN) [...] RN) 0445 (Patch Removed - Provider: Henrique Marks, VAMSI) 0900 (Patch Removed - Provider: Dory Truong [...] Marks, VAMSI) 0808 (Given - Provider: Chiquis Mcgrath, VAMSI)2024 (Given - Provider: Mira Truong, RN) 0800 (Given - Provider: Dory Truong RN) 8.6 mg, Oral, 2 TIMES DAILY, First dose on Wed08/13/17 at 0245, Until Discontinued, Routine sodium chloride 0.9 % flush 5 mL 0515 (Given - Provide r: Henrique Marks RN)1733 (Given - Provider: Chiquis Mcgrath RN) 0506 (Given - Provider: Henrique Marks, VAMSI)1715 (Given - Provider: Chiquis Mcgrath RN) 0631 [...] mg 10 mg, Rectal, DAILY PRN, Starting Fri at 1058, Until Wed08/16/17 at 1425, Constipation, [...] Melba Jaramillo, VAMSI)0807 (Given - Provider: Chiquis Mcgrath RN)1159 (Given - Provider: Chiquis Mcgrath RN)1542 (Given - Provider: Kim Borges RN)2144 (Given - Provider: Alyson Middleton RN) 0427 (Given - Provider: Mira Truong RN)0751 (Given - Provider: Dory Truong RN)1042 (Given - Provider: Dory Truong RN) 2-4 mg, Oral, EVERY 3 HOURS PRN, Startin g 08/07/17 at 1658, Until Wed08/16/17 at 1425, Pain, 2mg for mild - moderate pain 1-6 OR 4mg for severe pain 7-10, Routine 210 (Given - Provider: Henrique ureña RN - Comment: pt requesting 4 mg) lidocaine (XYLOCAINE) 10 mg/mL (1 %) injection 3 mg 3 mg (0.3 mL), Subcutaneous, ONCE PRN, 1 dose, Starting 08/06/17 at 1659, Until Wed08/16/17 at 1425, for discomfort with PIV insertion, Routine LORazepam (ATIVAN) tablet 0.5 mg 0157 (G iven - Provider: Melba Jaramillo RN) 1042 (Given - Provider: Dory Yuan ams, RN) 0.5 mg, Oral, EVERY 6 HOURS PRN, Startin g 08/06/17 at 1629, Until Wed08/16/17 at 1425, Anxiety, Routine polyethylene glycol (MIRALAX) packet 17 g 17 g, Oral, DAILY PRN, Starting Wed 08/11 at 1300, Until Wed08/16/17 at 1425, Constipation, Routine sodium chloride 0.9 % flush 5-20 mL 5-20 mL, Intravenous, EVERY 1 MIN PRN, S tarting Wed08/06/17 at 1659, Until 08/16/17 at 1425, [...]
Routine documented in this encounter Care Teams Wax Pumper Relationship Specialty Start Date End Date Lovely Vicente MD PCP - General 04/16/15 [address] [place] [address] documented as of this encounter
--- OUTSIDE RECORDS SUMMARY | 2022-02-18 08:17 | XMS_ITS | Encounter Summary ---
:1945 Author Organization [place] [address] Care Team Providers Name Role Phone Lovely Vicente MD Primary Care Provider Reason for Visit Auth/Cert Specialty Diagnoses / Procedures Referred By Contact Refer red To Contact Diagnoses Critical lower limb ischemia CELLULITIS RT FOOT Procedures EMERGENCY Referral ID Status Reason Start Date Expiration Date Visits Requ ested Visits Authorized [id number] 1 1 Encounter Details Date Type Department Care Team Description 08/06/2017 Clinical Support Same Day at [facility] Ischemia of foot [facility] [place] [address] Social History Tobacco Use Types Packs/Day [...] noother symptoms except severe right foot pain. [facility] clinic called as pt on route there [...] PA [facility] er Cardiology Dept [place], [place] [address] (Wo rk) 03/26/2022 Office Visit Cardiology Vitaliy Nobles MD [facility] CARDIOLOGY [place], [place] [address] (Wo rk) documented as of [...] 444 ms MUSE SYSTEM (Bezet) Calculated P Auberry 44 degrees MUSE SYSTEM Calculated R Auberry -31 degrees MUSE SYSTEM Calculated T Auberry 106 degrees MUSE SYSTEM INTERPRETATION Normal sinus [...] failure documented in this encounter Care Teams Freight Manager Relationship Specialty Start Date End Date Lovely Vicente MD PCP - General 04/16/[address] [place] [address] documented as of this encounter
--- OUTSIDE RECORDS SUMMARY | 2022-02-18 08:17 | XMS_ITS | Encounter Summary ---
:1945 Author Organization [facility] [place] [address] Care Team Providers Name Role Phone Lovely Vicente MD Primary Care Provider Reason for Visit Auth/Cert Specialty Diagnoses / Procedures Referred By Contact Refer red To Contact Diagnoses Critical lower limb ischemia CELLULITIS RT FOOT Procedures EMERGENCY Referral ID Status Reason Start Date Expiration Date Visits Requ ested Visits Authorized [id number] 1 1 Encounter Details Date Type Department Care Team Description 08/06/2017 Laboratory Appointment Lab at [facility] [place] [address] Social History Tobacco Use Types Packs/Day [...] [facility] er Cardiology Dept [place], [place] [address] (Wo rk) 03/26/2022 Office Visit Cardiology Vitaliy Nobels MD [facility] ER CARDIOLOGY [place], [place] [address] (Wo rk) documented as of [...] 19 (L) 20 - 40 [facility] Comment: Prealbumin levels are generally [...] Organization Address City/State/[place] [address] (ABNORMAL) Basic Metabolic Panel (non-fasting) (08/06/2017 12:32 PM EST) P athologist Signature Glucose Lvl 92 65 - 199 [facility] mg/dL [facility] Comment: Diabetes: >=200 mg/dL plus symp toms BUN 29 (H) 10 - 20 mg/dL [facility] Creatinine 1.33 0.80 - 1.50 mg/dL [facility] Sodium 138 135 - 145 mmol/L [facility] Potassium 4.6 3.5 - 5.0 mmol/L [facility] Comment: Please note: ??Patients with WBC >100,00 0 may have falsely elevated Potassium levels. ??For accurate Potassium quantif ication in these patients send serum separator tube (gold top) for subsequent determinations. ??Contact the Clinical Chemistry Laboratory if there are any qu estions. Chloride 97 (L) 98 - 107 mmol/L [facility] CO2 25 22 - 31 mmol/L [facility] Anion Gap 16 (H) 5 - 15 mmol/L [facility] Calcium 8.5 8.5 - 10.5 mg/dL [facility] Estimated GFR 53 (L) >=60 [facility] Comment: The reported eGFR should be multiplied b y 1.2 for patients. The MDRD is not an appropriate measure o f renal function for patients with body mass extremes or in patients with acute kidney failure. http://Zura!/DHnkdep http://Zura!/DHnkf Specimen Anatomical Collection Method Collection Time Receive d Time (Source) Location / / Volume Laterality Blood specimen 08/06/2017 12:32 8 1:15 (specimen) PM EST PM EST Resulting Agency Comment Spec In Lab Arik Clement MD CHEMISTRY ORDERABLES Performing Organization Address City/State/[place] [address] (ABNORMAL) Hemogram (08/06/2017 12:32 PM EST) Analysis Performed At Patho logist Time Signature WBC 11.8 (H) 4.0 - 9.5 [facility] x10(3)/[facility] LABORATORY RBC 3.49 (L) 4.58 - [facility] 5.54 [facility] x10(6)/[facility] LABORATORY Hemoglobin 9.9 (L) 13.7 - [facility] 16.5 gm/dL [facility] Hematocrit 32.0 (L) 40.5 - [facility] 48.5 % [facility] MCV 91.7 82.9 - [facility] 93.1 fL [facility] MCH 28.4 27.5 - [place] [facility] 32.1 pg [facility] MCHC 30.9 (L) 32.0 - [facility] 35.7 gm/dL [facility] Platelets 326 145 - 357 [facility] x10(3)/[facility] LABORATORY RDWSD 53.4 (H) 36.0 - [facility] 45.[address] [facility] LABORATORY RDWCV 16.0 (H) 11.4 - [facility] 13.8 % [facility]ORY MPV 9.1 7.6 - 12.9 [facility] LABORATORY nRBC % Auto 0.0 % [facility] nRBC Abs Auto 0.000 0.000 - [facility] 0.000 [facility] x10(3)/[facility] LABORATORY Specimen Anatomical Collection Method Collection Time Receive d Time (Source) Location / / Volume Laterality Blood specimen 08/06/2017 12:32 8 1:15 (specimen) PM EST PM EST Resulting Agency Comment Spec In Lab Arik Clement MD HEMATOLOGY ORDERABLES Performing Organization Address City/State/ZIP Code Phon e Number [place] [id number] documented in this encounter Visit Diagnoses Diagnosis Ischemia of foot Unspecified circulatory system disorder Chronic systolic heart failure documented in this encounter Care Teams Manager Of Case Relationship Specialty Start Date End Date Lovely Vicente MD PCP - General 04/16/[address] [place] [address] documented as of this encounter
--- OUTSIDE RECORDS SUMMARY | 2022-02-18 08:17 | XMS_ITS | Encounter Summary ---
:1945 Author Organization [facility] [place] [address] Care Team Providers Name Role Phone Lovely Vicente MD Primary Care Provider Reason for Visit Reason Comments Deep Vein Thrombosis Auth/Cert Specialty Diagnoses / Procedures Referred By Contact Refer red To Contact Diagnoses Critical lower limb ischemia CELLULITIS RT FOOT Procedures EMERGENCY Referral ID Status Reason Start Date Expiration Date Visits Requ ested Visits Authorized [id number] 1 1 Encounter Details Date Type Department Care Team Description 08/04/2017 Office Visit Vascular Surgery at [facility] itical lower limb [facility] ischemia [facility] [address] [place] VASCULAR SURGERY [id number] [place] [address] [phone] Social History Tobacco Use Types Packs/Day Years [...] was discharged on Coumadin. ??He presented to [facility] on 07/20 with mottled toes on the [...] Visit Cardiology Liz Poole PA [facility] Cardiology Dept [place], [place] [address] (Wo lissa) 03/26/2022 Office Visit Cardiology Vitaliy Nobles MD [facility] CARDIOLOGY [place], [place] [address] (Mikayla alcaraz) documented as of this encounter Visit Diagnoses Diagnosis Critical lower limb ischemia Unspecified circulatory system disorder Chronic systolic heart failure documented in this encounter Care Teams Shoe Folder Relationship Specialty Start Date End Date Lovely Vicente MD PCP - General 04/16/15 [address] [place] [address] documented as of this encounter
--- OUTSIDE RECORDS SUMMARY | 2022-02-18 08:17 | XMS_ITS | Encounter Summary ---
:1945 [place] [address] Care Team Providers Name Role Phone Lovely Vicente MD Primary Care Provider Encounter Details Date Type Department Care Team Description 08/04/2017 Orders Only Cardiac Surgery Makayla Wilson APRN [facility] [address] [facility] [place] [address] CARDIAC SURGERY [phone] [place], [place] [address] (Wo rk) Social [...] [facility] er Cardiology Dept [place], [place] [address] (Wo rk) 03/26/2022 Office Visit Cardiology Vitaliy Nobles MD [facility] CARDIOLOGY [place], [place] [address] (Wo rk) documented as of this encounter Visit Diagnoses Not on filedocumented in this encounter Care Teams Him Specialist Relationship Specialty Start Date End Date Lovely Vicente MD PCP - General 04/16/[address] [place] [address] [address] [facility] [address] [place] [address] documented as of this encounter
--- OUTSIDE RECORDS SUMMARY | 2022-02-18 08:17 | XMS_ITS | Encounter Summary ---
:1945 Author Organization [facility] [place] [address] Care Team Providers Name Role Phone Lovely Vicente MD Primary Care Provider Reason for Visit Reason Comments Foot Ulcer WOUND CHECK Auth/Cert Specialty Diagnoses / Procedures Referred By Contact Refer red To Contact Diagnoses Critical lower limb ischemia CELLULITIS RT FOOT Procedures EMERGENCY Referral ID Status Reason Start Date Expiration Date Visits Requ ested Visits Authorized [id number] 1 1 Encounter Details Date Type Department Care Team Description 08/06/2017 [facility] ischemia [facility] [address] [place] VASCULAR SURGERY [id number] [place] [address] [phone] Social History Tobacco Use Types Packs/Day Years [...] Smith MD - 08/06/2017 1:00 PM EST [facility] staff: 1. RIGHT leg CLI Interval [...] Visit Cardiology Liz Poole PA [facility] Cardiology Dept [place], [place] [address] (Wo rk) 03/26/2022 Office Visit Cardiology Vitaliy Nobles MD [facility] ER CARDIOLOGY [place], [place] [address] (Wo rk) documented as of this encounter Visit Diagnoses Diagnosis Critical lower limb ischemia Unspecified circulatory system disorder Chronic systolic heart failure documented in this encounter Care Teams Mail Order Biller Relationship Specialty Start Date End Date Lovely Vicente MD PCP - General 04/16/[address] [facility] [address] [place] [address] documented as of this encounter
--- OUTSIDE RECORDS SUMMARY | 2022-02-18 08:17 | XMS_ITS | Encounter Summary ---
:1945 Author Organization [facility] [place] [address] Care Team Providers Name Role Phone Lovely Vicente MD Primary Care Provider Reason for Visit Auth/Cert Specialty Diagnoses / Procedures Referred By Contact Refer red To Contact Diagnoses Critical lower limb ischemia CELLULITIS RT FOOT Procedures EMERGENCY Referral ID Status Reason Start Date Expiration Date Visits Requ ested Visits Authorized [id number] 1 1 Encounter Details Date Type Department Care Team Description 08/04/2017 Office Visit Cardiology at [facility] [place] Danette Maxwell Incisional pain; 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 [...] Poole PA [facility] Cardiology Dept [place], [place] [address] (Wo rk) 03/26/2022 Office Visit Cardiology Vitaliy Nobles MD [facility] CARDIOLOGY [place], [place] [address] (Wo rk) documented as of [...] chronicity Incisional pain Disturbance of skin sensation Chronic systolic heart failure documented in this encounter Care Teams Nutrition Services Aide Relationship Specialty Start Date End Date Lovely Vicente MD PCP - General 04/16/[address] [place] [address] documented as of this encounter
--- OUTSIDE RECORDS SUMMARY | 2022-02-18 08:17 | XMS_ITS | Encounter Summary ---
:1945 Author Organization [facility] [place] [address] Care Team Providers Name Role Phone Lovely Vicente MD Primary Care Provider Reason for Visit Auth/Cert Specialty Diagnoses / Procedures Referred By Contact Refer red To Contact Diagnoses Critical lower limb ischemia CELLULITIS RT FOOT Procedures EMERGENCY Referral ID Status Reason Start Date Expiration Date Visits Requ ested Visits Authorized [id number] 1 1 Encounter Details Date Type Department Care Team Description 08/04/2017 Laboratory Appointment Lab 3L [place] [address] Social History Tobacco Use Types Packs/Day [...] [facility] er Cardiology Dept [place], [place] [address] (Wo rk) 03/26/2022 Office Visit Cardiology Vitaliy Nobles MD [facility] ER CARDIOLOGY [place], [place] [address] (Wo rk) documented as of this encounter Visit Diagnoses Not on filedocumented in this encounter Care Teams Tax Credit Leasing Consultant Relationship Specialty Start Date End Date Lovely Vicente MD PCP - General 04/16/[address] [place] [address] documented as of this encounter
--- OUTSIDE RECORDS SUMMARY | 2022-02-18 08:17 | XMS_ITS | Encounter Summary ---
:1945 Author Organization [facility] [place] [address] Care Team Providers Name Role Phone Lovely Vicente MD Primary Care Provider Reason for Visit Auth/Cert Specialty Diagnoses / Procedures Referred By Contact Refer red To Contact Diagnoses Critical lower limb ischemia CELLULITIS RT FOOT Procedures EMERGENCY Referral ID Status Reason Start Date Expiration Date Visits Requ ested Visits Authorized [id number] 1 1 Encounter Details Date Type Department Care Team Description 08/04/2017 Hospital Encounter XRay at [facility] Danette Maxwell Incisional pain [address] [place] [address] Dr Gomes, TRANSPORTATION ASSOCIATE [facility] [phone] CARDIOLOGY [place], [place] [address] Social History Tobacco Use Types [...] Poole PA [facility] Cardiology Dept [place], [place] [address] (Wo rk) 03/26/2022 Office Visit Cardiology Vitaliy Nobles MD [facility] CARDIOLOGY [place], [place] [address] (Wo rk) documented as of [...] Diagnosis Incisional pain Disturbance of skin sensation Chronic systolic heart failure documented in this encounter Care Teams Paralegal Secretary Relationship Specialty Start Date End Date Lovely Vicente MD PCP - General 04/16/[address] [place] [address] [address] [place] [address] documented as of this encounter
--- OUTSIDE RECORDS SUMMARY | 2022-02-18 08:18 | XMS_ITS | Encounter Summary ---
:1945 [place] [address] Care Team Providers Name Role Phone Lovely Vicente MD Primary Care Provider Reason for Visit Reason Comments Hospital Transfer cold foot post CABG Auth/Cert Specialty Diagnoses / Procedures Referred By Contact Refer red To Contact Diagnoses Critical lower limb ischemia Procedures NAYE IPI Referral ID Status Reason Start Date Expiration Date Visits Requ ested Visits Authorized [id number] 1 1 Encounter Details Date Type Department Care Team Description 07/20/2017 Hospital Encounter 4 Herminia Ibarra MD [facility] [place] [address] Critical lower limb [facility] Arik Clement MD [facility] [place] [address] [place] [address] Social History Tobacco Use Types Packs/Day Years [...] home. Important Studies and Lab Data: Labs: Branch2gs Lab Results Component Value Date INR 1.5 [...] For any problems or questions please call [phone] ZELDA Smith, psychiatric aide Nurse Clinician For issues on weeknights after 5pm and weekends please call [phone] and ask for the Vascular Fellow impregnation operator. General Instructions None Future Appointments and Orders Future Appointments Provider Department Dept Phone 08/04/2017 1:00 PM Daniele Mooney [place] [facility] [phone] 08/04/2017 2:15 PM Arik Clement MD [facility] [phone] 09/07/2017 3:00 PM MAYRA CHACON Lab [facility] [phone] 09/07/2017 4:00 PM Luz Prescott MD [facility]ocrinology [facility] [phone] Future Orders Complete By Expires Arterial Duplex Leg, Unil [VAS32 Custom] 07/27/2017 (Approximate) 01/26/2018 Process Instructions: There is no in-house vascular laboratory aide available on weeknights (5pm-8am), weekends, or holidays. IF THIS IS A REQUEST FOR AN EMERGENT STUDY DURING THOSE HOURS, please have the senior provider responsible for the patient page the Vascular Surgery Fellow/Senior Resident impregnation operator to discuss options. Scheduling Instructions: Questions: Indication for study/signs & symptoms: Right femoral PSA s/p cardiac cath Question to be answered: bloodflow to PSA Laterality: Right Is there a RIGHT LOWER EXTREMITY graft?: No Lower limb right segments: Common Femoral Is there a stent?: No At which location will this be performed?: [facility] Referral to Home Health - at DISCHARGE [[id number] CPT(R)] As directed Process Instructions: Scheduling Instructions: Comments: DOCUMENTATION FOR VNA SERVICES (INCLUDING THOSE PATIENTS WITH MEDICARE COVERAGE REQUIRING HOME VNA SERVICES AND/OR HOSPICE SERVICES) PATIENT'S LOCATION: Gregory Fatima [address] [place] [address] [place] [id number] (home) Cell: Telephone Information: Neurodiagnostic Technician's Name: self In discussion with the attending physician, it is certified that this patient is under their care and that they, or a Nurse Practitioner,Clinical Nurse specialist or Physician Medical Transcription Editor who is working directly with them, had [...] CARE AGENCY: [facility] ([facility] [place] [facility]-is in [place]) PHONE: [phone] FAX: [phone] Start of care: 24- 48 hours FOR [...] patient'sPCP: Lovely Vicente MD [address] [facility] [place] / [place] [address] All VNA agencies which cover the area [...] For any problems or questions please call [phone] ZELDA Smith, psychiatric aide Nurse Clinician For issues on weeknights after 5pm and weekends please call [phone] and ask for the Vascular Fellow impregnation operator. documented in this encounter Medications at Time [...] - 07/20/2017 2:53 PM EST The patient/sales account representative has been provided a list of Home Health Agencies/DME vendors which serve their preferred geographic area. A letter describing our affiliations was reviewed with them and theywere educated about their right to choose where referrals are placed. Patient requests referral to [facility]. PHONE: [phone] FAX: [phone]. Expected date of discharge: 07/20/2017 . Referral routed to the Horizontal Resaw Operator for matching with agency/vendor and to provide any required information. Naty Pulliam RN - 07/20/2017 11:37 AM EST The patient/sales account representative has been provided a list of Home Health Agencies/DME vendors which serve their preferred geographic area. A letter describing our affiliations was reviewed with them and theywere educated about their right to choose where referrals are placed. Patient requests referral to [facility] ([facility] [place] [facility]- is in [facility] PHONE: [phone] FAX: [phone]. Expected date of discharge: 07/20/2017 . Referral routed to the Horizontal Resaw Operator for matching with agency/vendor and to provide any required information. Katina Pulliam RNjob development specialist Janneth Lee MD - 07/20/2017 7:29 AM [...] SETUP performed by Manny Mcknight MD at [facility] MAIN OR ??? PRO CABG, ARTERIAL, SINGLE N/A 07/07/2017 @CABG, USING ARTERIAL GRAFT;SINGLE ARTERIAL GRAFT (WRVU 33.75) performed by Yuan Retana MD at [facility] MAIN OR ??? PRO CABG, ARTERY-VEIN, TWO N/A 07/07/2017 @CABG, TWO VENOUS GRAFTS & ARTERIAL GRAFT (WRVU 7.93) performed by Yuan Retana MD at [facility] MAIN OR ??? PRO COLONOSCOPY, REMV LESN, SNARE 01/16/2014 COLONOSCOPY, POLYPECTOMY, REMOVAL LESION BY SNARE performed by Nohemi Jaimes MD at [facility] ENDOSCOPY ??? PRO ENDOSCOPY W/VIDEO-ASST VEIN HARVEST, CABG Right 07/07/2017 ENDOSCOPIC HARVEST VEIN(S) FOR CABG (WRVU 0.31) performed by Yuan Retana MD at [facility] MAIN OR ??? PRO THYROIDECTOMY 03/28/2013 THYROIDECTOMY, TOTAL OR COMPLETE performed by Manny Mcknight MD at [facility] MAIN OR Functional Status/Social Hx: Social History [...] -ISS -pain control Discussed with Vascular Fellow impregnation operator. Chris Valadez MD PGY2 Pager [phone] documented in this encounter ED Notes Annita Reaves MD - 07/20/2017 3:15 PM EST Emergency Department Gregory Fatima is a 72 y.o. male who presents to [facility] with arterial thrombosis. History of Present Illness [...] 04/05/2013 Hospitalizations Within the Past 30 Days: [facility] 07/05/17 Anticipated Length Of Stay (If known): [...] Health/Prescription Coverage: Primary Insurance: MEDICARE Secondary Insurance: [facility] Prescription Coverage: See above Preferred Pharmacy: [facility] Other: N/A Primary Care Provider: Lovely Vicente MD [phone] Patient/Caregiver Goals of Treatment: Patient plans to return home when medically ready Potential Needs for Transition of Care: Rehab/SNF: N/A Home Health: [facility] ([facility] [place] [facility]-is in [place]) PHONE: [phone] FAX: [phone] DME: N/A Dialysis: N/A Community Resources: N/A Transportation: Patient family will transport Other: N/A Anticipated Barriers to Discharge/Special Considerations: None Plan: Patient plans to return home with home health services when medically ready A member of the Care Management team will continue to monitor progress, follow for continuity of care and assist with transition of care planning. Naty Pulliam RN Pager: [phone] ED Triage - Rayna Weir RN - 07/20/2017 12:28 AM EST Pt transferred from [place] for blue right foot and painful toes. [...] Office Visit Cardiology Liz Poole PA [facility] Cardiology Dept [place], [place] [address] (Wo ) 03/26/2022 Office Visit Cardiology Vitaliy Nobles MD [facility] CARDIOLOGY [place], [place] [address] (Wo ) documented as of this encounter Procedures Procedure Name Priority Date/Time Associated Comments Diagnosis PRACTICE CONSULTANT SCAN 09/02/2017 12:00 Res ults for this [...] TO LAB EST procedure are i n ([facility]) the results section. APTT STAT 07/20/2017 2:25 AM Results f or this EST procedure are i n the results section. PROTHROMBIN TIME STAT 07/20/2017 2:25 AM Resul ts for this EST procedure are i n the results section. BASIC METABOLIC PANEL STAT 07/20/2017 2:25 AM Results for this (NON-FASTING) EST procedure are in the results section. documented in this encounter Results SCAN DOC: PRACTICE CONSULTANT (09/02/2017 12:00 AM EST) Narrative 09/02/2017 12:00 AM EST This result has an attachment that is no t available. Ordered by an unspecified provider. Scanning Provider MEDIA MGR SCAN EXT ORDR/RSLT POCT Glucose (07/20/2017 12:04 PM EST) P athologist Signature POC Glucose 189 65 - 199 [facility] mg/dL [facility] Comment: Supplemental ranges: <140 mg/dL before meals <180 mg/dL all other times of the day Specimen Anatomical Collection Method Collection Time Receive d Time (Source) Location / / Volume Laterality Blood specimen 07/20/2017 12:04 7 (specimen) PM EST 12:04 PM EST Arik Clement MD POINT OF CARE TEST ORDERABLE S Performing Organization Address City/State/ZIP Code Phon e Number [place] [id number] (ABNORMAL) Differential, Automated (07/20/2017 10:34 AM EST) [facility] Method Time Signature Neutrophils % 84.3 % [facility] Neutr Abs (ANC) 14.27 (H) 1.70 - [facility] 6.10 [facility] x10(3)/[facility] LABORATORY Lymphocytes % 5.6 % [facility] Lymphocytes Abs 1.0 0.9 - 3.2 [facility] x10(3)/[facility] LABORATORY Monocytes % 6.1 % [facility] Monocyte Abs 1.0 (H) 0.3 - 0.9 [facility] x10(3)/[facility] LABORATORY Eosinophils % 2.4 % [facility] Eosinophils Abs 0.4 0.0 - 0.4 [facility] x10(3)/[facility] LABORATORY Basophils % 0.5 % [facility] Basophils Abs 0.1 0.0 - 0.1 [facility] x10(3)/[facility] LABORATORY Immature Gran % 1.10 % [facility] Comment: Immature granulocytes(IG's)percentage an d absolute count will include metamyelocytes, myelocytes, and promyelo cytes. Blood smears from CBCs yielding IG's will be scanned manually for concor dance. If this scan disagrees with the automated IG or if promyelocytes are not ed, a manual differential will be performed. Melisa Gran Abs 0.19 (H) 0.00 - 0.04 x10(3)/[facility] LABORATORY Specimen Anatomical Collection Method Collection Time Receive d Time (Source) Location / / Volume Laterality Blood specimen 07/20/2017 10:34 7 (specimen) AM EST 10:39 AM EST Resulting Agency Comment Spec In Lab Arik Clement MD HEMATOLOGY ORDERABLES Performing Organization Address City/[facility]/ZIP Code Phon e Number [place] [phone] (ABNORMAL) Hemogram (07/20/2017 10:34 AM EST) Analysis Performed At Patho logist Time Signature WBC 17.0 (H) 4.0 - 9.5 [facility] x10(3)/[facility] LABORATORY RBC 3.70 (L) 4.58 - [facility] 5.54 [facility] x10(6)/[facility] LABORATORY Hemoglobin 10.8 (L) 13.7 - [facility] 16.5 gm/dL [facility] Hematocrit 33.4 (L) 40.5 - [facility] 48.5 % [facility] MCV 90.3 82.9 - [facility] 93.1 [facility] LABORATORY MCH 29.2 27.5 - [facility] 32.1 pg [facility] LABORATORY MCHC 32.3 32.0 - [facility] 35.7 gm/dL [facility] Platelets 211 145 - 357 [facility] x10(3)/[facility] LABORATORY RDWSD 49.1 (H) 36.0 - [facility] 45.0 [facility] LABORATORY RDWCV 14.7 (H) 11.4 - [facility] 13.8 % [facility] LABORATORY MPV 9.2 7.6 - 12.9 [facility] LABORATORY nRBC % Auto 0.0 % [facility] nRBC Abs Auto 0.000 0.000 - [facility] 0.000 [facility] x10(3)/[facility] LABORATORY Specimen Anatomical Collection Method Collection Time Receive d Time (Source) Location / / Volume Laterality Blood specimen 07/20/2017 10:34 7 (specimen) AM EST 10:39 AM EST Resulting Agency Comment Spec In Lab Arik Clement MD HEMATOLOGY ORDERABLES Performing Organization Address City/State/[place] [address] (ABNORMAL) APTT (07/20/2017 10:34 AM EST) P athologist Signature PTT 79 (H) 25 - 35 sec [facility] Comment: The recommended therapeutic range for fu ll dose, unfractionated heparin at [facility] is 80 ? 114 seconds. The use [...] Clement MD HEMATOLOGY ORDERABLES Performing Organization Address City/[facility]/ZIP Code Phon e Number [address] POCT Glucose (07/20/2017 7:41 AM EST) P athologist Signature POC Glucose 174 65 - 199 [facility] mg/dL [facility] Comment: Supplemental ranges: <140 mg/dL before meals <180 mg/dL all other times of the day Specimen Anatomical Collection Method Collection Time Receive d Time (Source) Location / / Volume Laterality Blood specimen 07/20/2017 7:41 AM 017 7:41 (specimen) EST AM EST Arik Clement MD POINT OF CARE TEST ORDERABLE S Performing Organization Address City/[facility]/ZIP Code Phon e Number [address] JULIAN, legs, multiple levels (07/20/2017 7:33 AM EST) Component Value Ref Test Analysis Performed At Patholo gist Range Method Time Signature VB Text Department: Vascular Surgery Lab VASCUBASE Report Patient: [id number] (GREGORY FATIMA) CPT: 28108 ICD10: I75.021;I99.8 Referring Physician: ARIK CLEMENT ?? [...] Component Value Ref Test Analysis Performed At [facility] Range Method Time Signature VB Text Department: Vascular Surgery Lab VASCUBASE Report Patient: [id number] (GREGORY FATIMA) CPT: 48366 ICD10: I97.610;I99.8 Referring Physician: ARIK CLEMENT ?? [...] Signature POC Glucose 199 65 - 199 [facility] mg/dL [facility] Comment: Supplemental ranges: <140 mg/dL before meals <180 mg/dL all other times of the day Specimen Anatomical Collection Method Collection Time Receive d Time (Source) Location / / Volume Laterality Blood specimen 07/20/2017 3:41 AM 017 3:41 (specimen) EST AM EST Arik Clement MD POINT OF CARE TEST ORDERABLE S Performing Organization Address City/State/[place] [address] Lactate, whole blood, send to lab (Leb/CGP) (07/20/2017 2:25 AM EST) athologist Signature Lactate WB 2.0 0.5 - 2.2 [facility] LABORATORY Specimen Anatomical Collection Method Collection Time Receive d Time (Source) Location / / Volume Laterality Blood specimen Venous Draw / 07/20/2017 2:25 AM 2016 2:37 (specimen) Unknown EST AM EST Resulting Agency Comment Spec In Lab Zulma Samuel MD CHEMISTRY ORDERABLES Performing Organization Address City/[facility]/[place] [address] (ABNORMAL) APTT (07/20/2017 2:25 AM EST) P athologist Signature PTT 36 (H) 25 - 35 sec [facility] Comment: The recommended therapeutic range for fu ll dose, unfractionated heparin at [facility] is 80 ? 114 seconds. The use [...] Reaves MD HEMATOLOGY ORDERABLES Performing Organization Address City/[facility]/[place] [address] (ABNORMAL) Prothrombin Time (07/20/2017 [...] Organization Address City/State/[place] [address] (ABNORMAL) Basic Metabolic Panel (non-fasting) (07/20/2017 2:25 AM EST) athologist Signature Glucose Lvl 187 65 - 199 [facility] mg/dL [facility] Comment: Diabetes: >=200 mg/dL plus symp toms BUN 35 (H) 10 - 20 mg/dL [facility] LABORATORY Creatinine 1.51 (H) 0.80 - 1.50 mg/dL [facility] LABORATORY Sodium 134 (L) 135 - 145 mmol/L [facility] Potassium Not Perf 3.5 - 5.0 mmol/L [facility] Comment: Specimen hemolyzed. Called by: [facility], Read back by: Chitra Orantes, Date/Time:07/20/17 03:05. Please note: ??Patients with WBC >100,00 0 may have falsely elevated Potassium levels. ??For accurate Potassium quantif ication in these patients send serum separator tube (gold top) for subsequent determinations. ??Contact the Clinical Chemistry Laboratory if there are any qu estions. Chloride 92 (L) 98 - 107 mmol/L [facility] CO2 29 22 - 31 mmol/L [facility] Anion Gap 13 5 - 15 mmol/L [facility] Calcium 8.6 8.5 - 10.5 mg/dL [facility] Estimated GFR 46 (L) >=60 [facility] Comment: The reported eGFR should be multiplied b y 1.2 for patients. The MDRD is not an appropriate measure o f renal function for patients with body mass extremes or in patients with acute kidney failure. http://[employer]/DHnkdep http://[employer]/DHMCnkf Specimen Anatomical Collection Method Collection Time Receive d Time (Source) Location / / Volume Laterality Blood specimen 07/20/2017 2:25 AM 017 2:33 (specimen) EST AM EST Resulting Agency Comment Spec In Lab Annita Reaves MD CHEMISTRY ORDERABLES Performing Organization Address City/State/ZIP Code [place] [address] documented in this encounter [...] 24 hours with A.M. labs while on mikki rubio. RN to order required aPTT - Per [...] Group 2) 0-8,000 Units, Intravenous, BOLUS PER JOANNE PROTOCOL, Starting Wed07/20/17 at 0424, Until [...] 2 mg 0524 (Given - Provider: Ines Cantu RN)1020 (Given - Provider: Laura Vega RN) 2 mg, Oral, EVERY 4 HOURS [...] to med 0-8,000 Units, Intravenous, BOLUS PER MIKKI RUBIO PROTOCOL, Starting Wed07/20/17 at 0424, Until Wed07/20/17 [...] at 1716, Low blood sugar
For BG 50-70: 120 [...]
Routine documented in this encounter Care Teams Water Use Inspector Relationship Specialty Start Date End Date Lovely Vicente MD PCP - General 04/16/15 [address] [facility] [place] [address] documented as of this encounter
--- OUTSIDE RECORDS SUMMARY | 2022-02-18 08:18 | XMS_ITS | Encounter Summary ---
:1945 [place] [address] Care Team Providers Name Role Phone Lovely Vicente MD Primary Care Provider Reason for Visit Reason Onset Date Comments Questions 07/16/2017 fluid retention Encounter Details Date Type Department Care Team Description 07/16/2017 Telephone Cardiology at [facility] Martha Comer, Questions ([facility] RN retention ) [place] [address] Social History Tobacco Use Types Packs/Day [...] the direct number to the HF team ([phone]). She is aware of his appt with ROCK CRUSHER Hans on 07/21/17 and the need for labs prior to that visit. verbalized good understanding of the current POC. documented in this encounter Plan of Treatment Upcoming Encounters Date Type Specialty Care Team Description 02/19/2022 Laboratory Appointment Lab 02/19/2022 Office Visit Cardiology Liz Poole PA [facility] Dr Cardiology Dept [place], [place] [address] (Wo rk) 03/26/2022 Office Visit Cardiology Vitaliy Nobles MD [facility] CARDIOLOGY [place], [place] [address] (Wo rk) documented as of this encounter Visit Diagnoses Not on filedocumented in this encounter Care Teams Upholstery Restorer Relationship Specialty Start Date End Date Lovely iVcente MD PCP - General 04/16/[address] [place] [address] [address] [place] [address] documented as of this encounter
--- OUTSIDE RECORDS SUMMARY | 2022-02-18 08:18 | XMS_ITS | Encounter Summary ---
:1945 Author Organization [facility] [address] Care Team Providers Name Role Phone Lovely Vicente MD Primary Care Provider Encounter Details Date Type Department Care Team Description 07/24/2017 Telephone Vascular Surgery Melba Bob [facility] [place] [phone] [facility] [phone] VASCULAR SURGERY [place], [place] [address] (Wo rk) Social History Tobacco [...] was discharged on Coumadin. ??He presented to [facility]20 with mottled toes on the [...] PA [facility] er Cardiology Dept [place], [place] [address] (Wo rk) 03/26/2022 Office Visit Cardiology Vitaliy Nobles MD [facility] ER CARDIOLOGY [place], [place] [address] (Wo lissa) documented as of this encounter Visit Diagnoses Not on filedocumented in this encounter Care Teams Propeller Tester Relationship Specialty Start Date End Date Lovely Vicente MD PCP - General 04/16/[address] [place] [address] [address] [place] [address] documented as of this encounter
--- OUTSIDE RECORDS SUMMARY | 2022-02-18 08:18 | XMS_ITS | Encounter Summary ---
:1945 [place] [address] Care Team Providers Name Role Phone Lovely Vicente MD Primary Care Provider Encounter Details Date Type Department Care Team Description 08/03/2017 Hospital Encounter Radiology Library at [place], Tommy Mijares [facility] [place] [address] VASCULAR SURGERY [phone] [place], [place] [address] (Wo rk) Social History Tobacco [...] PA [facility] Cardiology Dept [place], [place] [address] (Wo rk) 03/26/2022 Office Visit Cardiology Vitaliy Nobles MD [facility] CARDIOLOGY [place], [place] [address] (Wo rk) documented as of [...] Organization Address City/State/ZIP Code Phon e Number [place], [place] documented in this encounter Visit Diagnoses Diagnosis Pain Generalized pain Chronic systolic heart failure documented in this encounter Care Teams Bone Process Operator Relationship Specialty Start Date End Date Lovely Vicente MD PCP - General 04/16/[address] [place] [address] documented as of this encounter
--- OUTSIDE RECORDS SUMMARY | 2022-02-18 08:18 | XMS_ITS | Encounter Summary ---
:1945 Author Organization [facility] [place] [address] Care Team Providers Name Role Phone Lovely Vicente MD Primary Care Provider Reason for Visit Reason Onset Date Comments Other 07/22/2017 lovenox bridge Encounter Details Date Type Department Care Team Description 07/22/2017 Telephone Cardiology at [facility] Court Cadena RN Other (lovenox bridge) [place] [address] Social History Tobacco Use Types Packs/Day [...] 4:49 PM EST VAMSI Del Castillo, at [facility], called earlier today with a question re: lovenox bridge for this patient who was recently discharged from [facility] r/t a blood clot. Discharge note faxed to [facility] (fax# [phone], Ph#: [phone]) which contains instructions r/t lovenox bridge as [...] [facility] er Cardiology Dept [place], [place] [address] (Wo rk) 03/26/2022 Office Visit Cardiology Vitaliy Nobles MD [facility] CARDIOLOGY [place], [place] [address] (Wo rk) documented as of this encounter Visit Diagnoses Not on filedocumented in this encounter Care Teams Hand Tube Bender Relationship Specialty Start Date End Date Lovely Vicente MD PCP - General 04/16/[address] [place] [address] documented as of this encounter
--- OUTSIDE RECORDS SUMMARY | 2022-02-18 08:18 | XMS_ITS | Encounter Summary ---
:1945 Author Organization [facility] [place] [address] Care Team Providers Name Role Phone Lovely Vicente MD Primary Care Provider Encounter Details Date Type Department Care Team Description 08/02/2017 Telephone Pain Management at [place], [place] [address] Social History Tobacco Use Types Packs/Day [...] Management Center Preauthorization Request Patient: Don Fatima [phone] Fax received from [facility] requesting we obtain prior authorization for Lidocaine patches prescribed by Barbra Soares APRN. RX insurance plan: [employer] insurance telephone: [phone] Patient Diagnosis: right foot pain secondary to PVD and ischemia Previous medications attempted: Tylenol, Tramadol, Dilaudid The following action was taken after discussion with the termite control servicer: _x_ pharmacy informed Authorized dosage or amount: 5% on patch on for 12 hours, then remove for 12 hours. Angeles Rodrigez, RN documented in this encounter Plan of Treatment Upcoming Encounters Date Type Specialty Care Team Description 02/19/2022 Laboratory Appointment Lab 02/19/2022 Office Visit Cardiology Liz Poole PA [facility] Medical [facility] er Cardiology Dept [place], [place] [address] (Wo rk) 03/26/2022 Office Visit Cardiology Vitaliy Nobles MD [facility] ER CARDIOLOGY [place], [place] [address] (Wo rk) documented as of this encounter Visit Diagnoses Not on filedocumented in this encounter Care Teams Supervisor Filter Assembly Relationship Specialty Start Date End Date Lovely Vicente MD PCP - General 04/16/[address] [place] [address] documented as of this encounter
--- OUTSIDE RECORDS SUMMARY | 2022-02-18 08:18 | XMS_ITS | Encounter Summary ---
:1945 Author Organization [facility] [place] [address] Care Team Providers Name Role Phone Lovely Vicente MD Primary Care Provider Reason for Visit Reason Comments Foot Pain Auth/Cert Specialty Diagnoses / Procedures Referred By Contact Refer red To Contact Diagnoses Ischemic foot Procedures NAYE OBSVO Referral ID Status Reason Start Date Expiration Date Visits Requ ested Visits Authorized [id number] 1 1 Encounter Details Date Type Department Care Team Description 07/27/2017 Emergency 1 [facility] Lokesh Swenson MD [facility] [address] EMERGENCY [place] [address] Femoral artery pseudo-aneurysm, right; [facility] Tam Bauman MD [facility] [address] HOSPITAL [place] [address] [place] [address] Social History Tobacco Use Types Packs/Day [...] Gregory Fatima Patient Age: 72 y.o. Language: Cuban Race: White Ethnicity: Not nor Admit date: [...] please contact your inpatient physician through the [facility] Catalyst Plant Supervisor . Issues after hours and on weekends [...] RLE critical limb ischemia, who presented to [facility] with worsening RLE pain. Pt post-op course after CABG was significant for paroxysmal Afib, and he was started on Coumadin given elevated QETH7TAADL score. 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 He [...] in the last 7068 hours. Invalid input(s): [id number] Recent Labs 07/08/17 0400 07/07/17 0515 07/06/17 [...] (it was low at 1.6 here at [facility]) 7. Use the tramadol if dilaudid or tylenol is not working 8. Stop taking the potassium supplement - your blood potassium level was elevated. Ask your doctors at future visits if this should be restarted. 9. Antibiotic for 5 days recommended by cardiothoracic surgery for chest wound drainage Follow-Up Appointments Vascular surgery as previously schedule Your Inpatient Doctor(s) at [facility]: CARLOS ALBERTO ROSALES MD General Instructions None Future Appointments and Orders Future Appointments Provider Department Dept Phone 07/30/2017 8:30 AM OSWALDO, THREE L Lab 3L [facility] [phone] 07/30/2017 9:40 AM Danette Maxwell APRN Cardiology at [place] [phone] 08/04/2017 1:00 PM Daniele Mooney [place] Vascular Lab at [place] [phone] 08/04/2017 2:15 PM Arik Clement MD Vascular Surgery at [place] [phone] 08/11/2017 10:00 AM [facility] ROOM 2 XRay at [place] [phone] Please go to [facility] Recessed Vat Area 3T ([place] Location). 08/11/2017 11:00 AM Yuan Retana MD Cardiac Surgery at [place] [phone] 09/07/2017 3:00 PM LAB, THREE L Lab 3L [facility] [phone] 09/07/2017 4:00 PM Luz Prescott MD Endocrinology at [place] [phone] Discharge References/Attachments None documented in this encounter [...] (it was low at 1.6 here at [facility]) 3. Use the tramadol if dilaudid or tylenol is not working 4. Stop taking the potassium supplement - your blood potassium level was elevated. Ask your doctors at future visits if this should be restarted. 5. Antibiotic for 5 days recommended by cardiothoracic surgery for chest wound drainage Follow-Up Appointments Vascular surgery as previously schedule Your Inpatient Doctor(s) at [facility]: CARLOS ALBERTO ROSALES MD documented in this [...] Gas) No results found for: PHART, PO2ART, VOL4RZR Assessment/Plan: 72 y.o. male s/p CABG in [...] intervention: Education Nutrition Recommendations: Recommend continuation of [facility], CHO2 diet order Patient and denied need [...] Orders Diet Daily Healthy Menu Choices/Cardiac diet ([facility]-Diet) 60/ CHO counting level 2 Frequency: Effective Now Number of Occurrences: Until Specified Admit Weight: 83.92 kg Estimated body mass index is 28.13 kg/(m^2) as calculated from the following: Height as of this encounter: 172.7 cm (5' 8). Weight as of this encounter: 83.9 kg (185 lb). [place] body weight: 68.4 kg (150 lb [...] RLE critical limb ischemia, who presented to [facility] with worsening RLE pain. Visited with patient [...] spent >30 minutes (Day of Discharge Code 40313) involved in the final examination of the [...] Melanoma ID: 72 y.o. Male presents to [facility] with persistent pain b/l lower extremities History of Present Illness: HPI 72 y.o. male with PMH ASCVD s/p CABG (07/07/17), MARIA VICTORIA on CPAP QHS, HTN, HLD, DM2, with recent hospitalization for RLE critical limb ischemia, who presented to [facility] with worsening RLE pain. Pt post-op course after CABG was significant for paroxysmal Afib, and he was started on Coumadin given elevated IFZG2FOMXN score. 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 He [...] [facility] OR Prior To Admission Medications: [...] Procedure Component Value Units Date/Time Blood culture [[id number]] Collected: 07/09/1739 Lab Status: Final result Specimen: Blood from Arm, Right Updated: 07/14/17701 Blood Culture No growth at 5 days. Blood culture [[id number]] Collected: 07/09/170 Lab Status: Final result Specimen: [...] areas of nonopacification; splenic infarcts not excluded. JLUIAN B/L LE 07/20/2017: RIGHT: No significant lower [...] limb ischemia following CABG, who presented to [facility] ED from home with persistent B/L LE [...] continued Diet Daily Healthy Menu Choices/Cardiac diet ([facility]-Diet) 60/60/75 CHO counting level 2Cardiac, low salt, CHO 2 Discharge planning Pending improvement in pain control PT/OT/Speech PT ordered Lines/Access PIV Ocasio catheter No DVT/GI Prophylaxis Lovenox bridge to Coumadin, SCD. Code status Full Code Family PCP Lovely Vicente MD [phone] Attestation Please see my note for details [...] encounter Miscellaneous Notes Plan of Care - [place]-Joyce Damian, PT - 07/27/2017 3:26 PM EST [...] Anticipated Discharge Disposition: home with assist Pager: [phone] JOYCE KING, PT Inpatient Physical Therapy 2017 [...] patient's evaluation including the following functional test(s) [facility]. Current ability measures, co-morbidities and clinical judgement [...] a lovenox bridge. Mr. Fatima returns to [facility] ED tonight because of ongoing pain in [...] [facility] MEDICATIONS: No current facility-administered [...] up in clinic 1-2 weeks after discharge. [facility] Vascular Surgery Plan of Care - aJzmín Proctor RN - 07/27/2017 1:31 AM EST [...] Visit Cardiology Liz Poole PA [facility] er Cardiology Dept [place], [place] [address] (Wo rk) 03/26/2022 Office Visit Cardiology Vitaliy Nobles MD [facility]ICAL [facility] CARDIOLOGY [place], [place] [address] (Wo rk) documented as [...] section. TYPE AND SCREEN STAT 07/27/2017 12:53 ([facility]/CGP/SHANDA) AM EST BASIC METABOLIC PANEL STAT 07/27/2017 12:53 Re sults for this (NON-FASTING) AM EST procedure are in the results section. documented in this encounter Results POCT Glucose (07/27/2017 11:53 AM EST) P athologist Signature POC Glucose 175 65 - 199 [facility] mg/dL [facility] Comment: Supplemental ranges: <140 mg/dL before meals <180 mg/dL all other times of the day Specimen Anatomical Collection Method Collection Time Receive d Time (Source) Location / / Volume Laterality Blood specimen 07/27/2017 11:53 8 (specimen) AM EST 11:53 AM EST Tam Bauman MD POINT OF CARE TEST ORDERABLE S Performing Organization Address City/State/[place] [address] Arterial Duplex Leg, Unil (07/27/2017 7:40 AM EST) Component Value Ref Test Analysis Performed At Patholo gist Range Method Time Signature VB Text Department: Vascular Surgery Lab VASCUBASE Report Patient: [id number] (GREGORY FATIMA) CPT: 07802 ICD10: I97.610;I72.4;Z09 Referring Physician: TAM BAUMAN ?? [...] Volume Laterality 07/27/2017 7:40 AM EST Tam Baumna MD VASCULAR ORDERABLES Performing Organization Address City/[facility]/ZIP Code Phon e Number VASCUBASE POCT Glucose (07/27/2017 6:51 AM EST) P athologist Signature POC Glucose 96 65 - 199 [facility] mg/dL [facility] Comment: Supplemental ranges: <140 mg/dL before meals <180 mg/dL all other times of the day Specimen Anatomical Collection Method Collection Time Receive d Time (Source) Location / / Volume Laterality Blood specimen 07/27/2017 6:51 AM 018 6:51 (specimen) EST AM EST Tam Bauman MD POINT OF CARE TEST ORDERABLE S Performing Organization Address City/[facility]/ZIP [facility] Phon e Number [address] ABORH Recheck Status (07/27/2017 12:53 AM EST) Patholo gist Method Time Signature ABORH Type Completed [facility] LABORATORY Specimen Anatomical Collection Method Collection Time Receive d Time (Source) Location / / Volume Laterality Blood specimen 07/27/2017 12:53 8 (specimen) AM EST 12:58 AM EST Resulting Agency Comment Spec In Lab Angela Swenson MD BLOOD BANK ORDERABLES Performing Organization Address City/[facility]/ZIP Code Phon e Number [address] Gold Tube HOLD (07/27/2017 12:53 AM EST) P athologist Signature Gold Hold Sample in [facility] LABORATORY Specimen Anatomical Collection Method Collection Time Receive d Time (Source) Location / / Volume Laterality Blood specimen Venous Draw / 07/27/2017 12:53 07/27/19 18 1:01 (specimen) Unknown AM EST AM EST Angela Swenson MD CHEMISTRY ORDERABLES Performing Organization Address City/State/ZIP Code Phon e Number [place] [phone] HOSPITAL LAB[address]ATORY [address] (ABNORMAL) Differential, Automated (07/27/2017 12:53 AM EST) [facility] Method Time Signature Neutrophils % 75.0 % [facility] Neutr Abs (ANC) 11.30 (H) 1.70 - [facility] 6.10 [place] x10(3)/[facility] LABORATORY Lymphocytes % 9.9 % [facility] Lymphocytes Abs 1.5 0.9 - 3.2 [facility] x10(3)/[facility] LABORATORY Monocytes % 8.6 % [facility] Monocyte Abs 1.3 (H) 0.3 - 0.9 [facility] x10(3)/[facility] LABORATORY Eosinophils % 4.8 % [facility] Eosinophils Abs 0.7 (H) 0.0 - 0.4 [facility] x10(3)/[facility] LABORATORY Basophils % 0.8 % [facility] Basophils Abs 0.1 0.0 - 0.1 [facility] x10(3)/[facility] LABORATORY Immature Gran % 0.90 % [facility] Comment: Immature granulocytes(IG's)percentage an d absolute count will include metamyelocytes, myelocytes, and promyelo cytes. Blood smears from CBCs yielding IG's will be scanned manually for concor dance. If this scan disagrees with the automated IG or if promyelocytes are not ed, a manual differential will be performed. Melisa Gran Abs 0.13 (H) 0.00 - 0.04 x10(3)/[facility] LABORATORY Specimen Anatomical Collection Method Collection Time Receive d Time (Source) Location / / Volume Laterality Blood specimen 07/27/2017 12:53 8 1:00 (specimen) AM EST AM EST Resulting Agency Comment Spec In Lab Angela Swenson MD HEMATOLOGY ORDERABLES Performing Organization Address City/State/ZIP Code Phon e Number [place] [phone] HOSPITAL LAB[address]ORY Drive (ABNORMAL) Hemogram (07/27/2017 12:53 AM EST) Analysis Performed At Patho logist Time Signature WBC 15.0 (H) 4.0 - 9.5 [facility] x10(3)/[facility] LABORATORY RBC 3.59 (L) 4.58 - [place] 5.54 [place] x10(6)/[facility] LABORATORY Hemoglobin 10.3 (L) 13.7 - [facility] 16.5 gm/dL [facility] Hematocrit 32.6 (L) 40.5 - [facility] 48.5 % [facility] MCV 90.8 82.9 - [facility] 93.1 [facility] LABORATORY MCH 28.7 27.5 - [place] 32.1 pg [facility] MCHC 31.6 (L) 32.0 - [facility] 35.7 gm/dL [facility] Platelets 322 145 - 357 [facility] x10(3)/[facility] LABORATORY RDWSD 48.7 (H) 36.0 - [facility] 45.0 [facility] LABORATORY RDWCV 14.7 (H) 11.4 - [facility] RYAN 13.8 % [facility] MPV 8.9 7.6 - 12.9 [facility] LABORATORY nRBC % Auto 0.0 % [facility] nRBC Abs Auto 0.000 0.000 - [place] 0.000 [place] x10(3)/[facility] LABORATORY Specimen Anatomical Collection Method Collection Time Receive d Time (Source) Location / / Volume Laterality Blood specimen 07/27/2017 12:53 8 1:00 (specimen) AM EST AM EST Resulting Agency Comment Spec In Lab Angela Swenson MD HEMATOLOGY ORDERABLES Performing Organization Address City/State/ZIP [place] [address] Antibody screen (07/27/2017 12:53 AM EST) Patholo gist Method Time Signature Ab Screen Negative [facility] LABORATORY Expires at 07/30/2017 [place] [id number] on: [facility] Specimen Anatomical Collection Method Collection Time Receive d Time (Source) Location / / Volume Laterality Blood specimen 07/27/2017 12:53 8 (specimen) AM EST 12:58 AM EST Resulting Agency Comment Spec In Lab Angela Swenson MD BLOOD BANK ORDERABLES Performing Organization Address City/[facility]/ZIP [place] [address] ABO/Rh Typing (07/27/2017 12:53 AM EST) P athologist Signature ABORh Type O Pos [facility] Specimen Anatomical Collection Method Collection Time Receive d Time (Source) Location / / Volume Laterality Blood specimen 07/27/2017 12:53 8 (specimen) AM EST 12:58 AM EST Resulting Agency Comment Spec In Lab Angela Swenson MD BLOOD BANK ORDERABLES Performing Organization Address [facility] [place] [address] (ABNORMAL) Prothrombin Time (07/27/2017 12:53 AM EST) P athologist Signature PT 19.1 (H) 11.8 - 14.0 [facility] [...] Swenson MD HEMATOLOGY ORDERABLES Performing Organization Address City/[facility] [place] [address] (ABNORMAL) Basic Metabolic Panel (non-fasting) (07/27/2017 12:53 AM EST) P athologist Signature Glucose Lvl 95 65 - 199 [facility] mg/dL [facility] Comment: Diabetes: >=200 mg/dL plus symp toms BUN 37 (H) 10 - 20 mg/dL [facility] Creatinine 1.49 0.80 - 1.50 mg/dL [facility] Sodium 137 135 - 145 [...] HOSPITAL LABORATORY Estimated GFR 46 (L) >=60 [facility] Comment: The reported eGFR should be multiplied b y 1.2 for patients. The MDRD is not an appropriate measure o f renal function for patients with body mass extremes or in patients with acute kidney failure. 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 Right foot pain Pain in limb ASHD (arteriosclerotic heart disease) Coronary atherosclerosis of unspecified type of vessel, grindstone or graft Cardiomyopathy, ischemic Other specified forms [...] symptoms (LUTS) Gastroesophageal reflux disease Esophageal reflux Chronic systolic heart failure documented in this [...] (CANCELED) 1400 (Patch Applied - Provider: Zulma Arndt, VAMSI) 1 patch, Transdermal, EVERY 72 HOURS, Fi [...] STAT insulin glargine VIAL injection 20 Units 0900 (Due) 20 Units, Subcutaneous, EVERY 24 HOURS, [...] S tarting e 07/27/17 at 0400, Until Tu07/27/17 at 1726, Low blood sugar, For BG [...]
Routine documented in this encounter Care Teams Community Cultural Development Officer Relationship Specialty Start Date End Date Lovely Vicente MD PCP - General 04/16/[address] [place] [address] [address] [place] [address] documented as of this encounter
--- OUTSIDE RECORDS SUMMARY | 2022-02-18 08:18 | XMS_ITS | Encounter Summary ---
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 Patient [...] SETUP performed by Manny Mcknight MD at [facility] MAIN OR ??? PRO CABG, ARTERIAL, SINGLE N/A 07/07/2017 @CABG, USING ARTERIAL GRAFT;SINGLE ARTERIAL GRAFT (WRVU 33.75) performed by Yuan Retana MD at [facility] MAIN OR ??? PRO CABG, ARTERY-VEIN, TWO N/A 07/07/2017 @CABG, TWO VENOUS GRAFTS & ARTERIAL GRAFT (WRVU 7.93) performed by Yuan Retana MD at [facility] MAIN OR ??? PRO COLONOSCOPY, REMFlash MOCK, SNARE 01/16/2014 COLONOSCOPY, POLYPECTOMY, REMOVAL LESION BY SNARE performed by Nohemi Jaimes MD at [facility] ENDOSCOPY ??? PRO ENDOSCOPY W/VIDEO-ASST VEIN HARVEST, CABG Right 07/07/2017 ENDOSCOPIC HARVEST VEIN(S) FOR CABG (WRVU 0.31) performed by Yuan Retana MD at [facility] MAIN OR ??? 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 Hank Zhang Vascular Surgery, PGY2 Pager #[phone] Associated attestation - Arik Clement MD - [...] Poole PA [facility] Cardiology Dept [place], [place] [address] (Wo rk) 03/26/2022 Office Visit Cardiology Vitaliy Nobles MD [facility] CARDIOLOGY [place], [place] [address] (Wo rk) documented as of [...] Component Value Ref Test Analysis Performed At [facility] gist Range Method Time Signature VB Text Department: Vascular Surgery Lab VASCUBASE Report Patient: [id number] (GREGORY FATIMA) CPT: 71061 ICD10: I82.541 Referring Physician: TAMIKO JIMÉNEZ ?? [...] Signature POC Glucose 128 65 - 199 [facility] mg/dL [facility] Comment: Supplemental ranges: <140 mg/dL before meals <180 mg/dL all other times of the day Specimen Anatomical Collection Method Collection Time Receive d Time (Source) Location / / Volume Laterality Blood specimen 07/29/2017 2:28 PM 018 2:28 (specimen) EST PM EST Tamiko Jiménez MD POINT OF CARE TEST ORDERABLE S Performing Organization Address City/[facility]/ZIP Code Phon e Number [address] (ABNORMAL) D-Dimer, Quantitative (07/29/2017 2:15 PM EST) [facility] Method Time Signature D-Dimer, Quant 1,699 (H) 0 - 500 [facility] FEU ng/ml [facility] Comment: The D-Dimer assay is [...] Jiménez MD HEMATOLOGY ORDERABLES Performing Organization Address City/[facility]/ZIP [place] [address] (ABNORMAL) Differential, Automated (07/29/2017 2:15 PM EST) [facility] Method Time Signature Neutrophils % 82.5 % [facility] LABORATORY Neutr Abs (ANC) 10.21 (H) 1.70 - [facility] 6.10 [facility] x10(3)/[facility] L LABORATORY Lymphocytes % 7.1 % [facility] LABOR[facility]ORY Lymphocytes Abs 0.9 0.9 - 3.2 [facility] x10(3)/[place] LABORATORY Monocytes % 6.5 % [facility] Monocyte Abs 0.8 0.3 - 0.9 [facility] x10(3)/[place] LABORATORY Eosinophils % 2.7 % [facility] LABOR[facility]ORY Eosinophils Abs 0.3 0.0 - 0.4 [facility] x10(3)/[place] LABORATORY Basophils % 0.6 % [facility] LABOR[facility]ORY Basophils Abs 0.1 0.0 - 0.1 [facility] x10(3)/[place] LABORATORY Immature Gran % 0.60 % [facility] Comment: Immature granulocytes(IG's)percentage an d absolute count will include metamyelocytes, myelocytes, and promyelo cytes. Blood smears from CBCs yielding IG's will be scanned manually for concor dance. If this scan disagrees with the automated IG or if promyelocytes are not ed, a manual differential will be performed. Melisa Gran Abs 0.08 (H) 0.00 - 0.04 x10(3)/[facility] LABORATORY Specimen Anatomical Collection Method Collection Time Receive d Time (Source) Location / / Volume Laterality Blood specimen 07/29/2017 2:15 PM 018 2:36 (specimen) EST PM EST Resulting Agency Comment Spec In Lab Tamiko Jiménez MD HEMATOLOGY ORDERABLES Performing Organization Address City/State/[place] [address] (ABNORMAL) Hemogram (07/29/2017 2:15 PM EST) Analysis Performed At Patho logist Time Signature WBC 12.4 (H) 4.0 - 9.5 [facility] x10(3)/[facility] LABORATORY RBC 4.17 (L) 4.58 - [facility] 5.54 [facility] x10(6)/[facility] LABORATORY Hemoglobin 12.1 (L) 13.7 - [facility] 16.[facility] gm/dL [facility] Hematocrit 38.1 (L) 40.5 - [facility] 48.5 % [facility] MCV 91.4 82.9 - [facility] 93.1 [facility] LABORATORY MCH 29.0 27.5 - [facility] 32.1 pg [facility] MCHC 31.8 (L) 32.0 - [facility] 35.7 gm/dL [facility] Platelets 204 145 - 357 [facility] x10(3)/[facility] LABORATORY RDWSD 50.5 (H) 36.0 - [place] 45.0 [facility] LABORATORY RDWCV 15.3 (H) 11.4 - [facility] 13.8 % [facility] LABORATORY MPV 9.4 7.6 - 12.9 [facility] LABORATORY nRBC % Auto 0.0 % [facility] LABORATORY nRBC Abs Auto 0.000 0.000 - [facility] 0.000 [facility] x10(3)/[facility] LABORATORY Specimen Anatomical Collection Method Collection Time Receive d Time (Source) Location / / Volume Laterality Blood specimen 07/29/2017 2:15 PM 018 2:36 (specimen) EST PM EST Resulting Agency Comment Spec In Lab Tamiko Jiménez MD HEMATOLOGY ORDERABLES Performing Organization Address City/State/ZIP Code Phon e Number [address] (ABNORMAL) Prothrombin Time (07/29/2017 2:15 PM EST) P athologist Signature PT 24.4 (H) 11.8 - 14.0 [facility] [place] [facility] LABORATORY INR 2.2 (H) 0.9 - 1.1 [facility] LABORATORY Comment: An INR [...] Organization Address City/State/ZIP Code Phon e Number [address] Arterial Duplex Leg, Unil (07/29/2017 11:50 AM EST) Component Value Ref Test Analysis Performed At Patholo gist Range Method Time Signature VB Text Department: Vascular Surgery Lab VASCUBASE Report Patient: [id number] (GREGORY FATIMA) CPT: 99617 ICD10: Z09;I97.610 Referring Physician: TAMIKO JIMÉNEZ ?? [...] Component Value Ref Test Analysis Performed At [facility] Method Time Signature VB Text Department: Vascular Surgery Lab VASCUBASE Report Patient: [id number] (GREGORY FATIMA) CPT: 00164 ICD10: I82.441 Referring Physician: TAMIKO JIMÉNEZ ?? [...] he calf. Notification: Marquis Pathak MD (pager #[phone]) was notif ied of the preliminary findings. [...] STAT documented in this encounter Care Teams Patient Transportation Driver Relationship Specialty Start Date End Date Lovely Vicente MD PCP - General 04/16/[address] [facility] [address] [place] [address] documented as of this encounter
--- OUTSIDE RECORDS SUMMARY | 2022-02-18 08:18 | XMS_ITS | Encounter Summary ---
:1945 Author Organization [place] [address] Care Team Providers Name Role Phone Lovely Vicente MD Primary Care Provider Encounter Details Date Type Department Care Team Description 07/29/2017 Transcribe Orders Laboratory Lovely Vicente MD [address] [phone] [place], [place] [address] (Mikayla alcaraz) Social History Tobacco Use Types [...] [facility] er Cardiology Dept [place], [place] [address] (Wo rk) 03/26/2022 Office Visit Cardiology Vitaliy Nobles MD [facility] ER CARDIOLOGY [place], [place] [address] (Wo rk) documented as of this encounter Visit Diagnoses Not on filedocumented in this encounter Care Teams Robotic Welding Operator Relationship Specialty Start Date End Date Lovely Vicente MD PCP - General 04/16/[address] [place] [address] documented as of this encounter
--- OUTSIDE RECORDS SUMMARY | 2022-02-18 08:18 | XMS_ITS | Encounter Summary ---
:1945 Author Organization [facility] [place] [address] Care Team Providers Name Role Phone Lovely Vicente MD Primary Care Provider Reason for Visit Reason Comments Follow-up Encounter Details Date Type Department Care Team Description 07/29/2017 Office Visit Cardiac Surgery at [facility] Yuan Retana MD S/P CABG x [address] [facility] [place] [address] CARDIOTHORACIC SURGERY [phone] [place], [place] [address] (Wo rk) Social History Tobacco [...] evaluation by vascular surgery. Yuan Retana MD [phone] documented in this encounter Plan of Treatment Upcoming Encounters Date Type Specialty Care Team Description 02/19/2022 Laboratory Appointment Lab 02/19/2022 Office Visit Cardiology Liz Poole PA [facility] Cardiology Dept [place], [place] [address] (Wo rk) 03/26/2022 Office Visit Cardiology Vitaliy Nobles MD [facility] CARDIOLOGY [place], [place] [address] (Wo rk) documented as of this encounter Visit Diagnoses Diagnosis S/P CABG x 3 Postsurgical aortocoronary bypass status Chronic systolic heart failure documented in this encounter Care Teams Computer Systems Software Engineer Relationship Specialty Start Date End Date Lovely Vicente MD PCP - General 04/16/[address] [place] [address] documented as of this encounter
--- OUTSIDE RECORDS SUMMARY | 2022-02-18 08:18 | XMS_ITS | Encounter Summary ---
:1945 Author Organization [facility] [place] [address] Care Team Providers Name Role Phone Lovely Vicente MD Primary Care Provider Encounter Details Date Type Department Care Team Description 07/29/2017 Transcribe Orders Laboratory Lovely Vicente MD [address] [phone] [place], [place] [address] (Mikayla alcaraz) Social History Tobacco Use Types [...] PA [facility] er Cardiology Dept [place], [place] [address] (Wo rk) 03/26/2022 Office Visit Cardiology Vitaliy Nobles MD [facility] ER CARDIOLOGY [place], [place] [address] (Wo rk) documented as of this encounter Visit Diagnoses Not on filedocumented in this encounter Care Teams Healthcare Prof Relationship Specialty Start Date End Date Lovely Vicente MD PCP - General 04/16/[address] [place] [address] documented as of this encounter
--- OUTSIDE RECORDS SUMMARY | 2022-02-18 08:18 | XMS_ITS | Encounter Summary ---
:1945 [place] [address] Care Team Providers Name Role Phone Lovely Vicente MD Primary Care Provider Encounter Details Date Type Department Care Team Description 07/29/2017 Hospital Encounter Vascular Lab at Critic monica Huber lower limb [facility] [place] [phone] Social History Tobacco Use Types Packs/Day Years [...] [facility] Cardiology Dept [place], [place] [address] (Wo rk) 03/26/2022 Office Visit Cardiology Vitaliy Nobles MD [facility] ER CARDIOLOGY [place], [place] [address] (Wo rk) documented as of this encounter Visit Diagnoses Diagnosis Critical lower limb ischemia Unspecified circulatory system disorder Chronic systolic heart failure documented in this encounter Care Teams Plating Tank Operator Relationship Specialty Start Date End Date Lovely Vicente MD PCP - General 04/16/[address] [place] [address] [address] [place] [address] documented as of this encounter
--- OUTSIDE RECORDS SUMMARY | 2022-02-18 08:18 | XMS_ITS | Encounter Summary ---
:1945 Author Organization [facility] [place] [address] Care Team Providers Name Role Phone Lovely Vicente MD Primary Care Provider Encounter Details Date Type Department Care Team Description 08/03/2017 Telephone Pain Management at [facility] [place], [place] [address] Social History Tobacco Use Types Packs/Day [...] Management Center Preauthorization Request Patient: Don Fatima [id number] Fax received from [facility] requesting we obtain prior authorization for Lidocaine Patches prescribed by Barbra Soares APRN. RX insurance plan: [facility] insurance telephone: [phone] Patient ?? Diagnosis: right foot pain secondary to PVD and ischemia ?? Previous medications attempted: Tylenol, Tramadol, Dilaudid Authorization/Reference number: [id number], PBP Code 801 _x_ denied, provider and patient informed _x_ appeal initiated by provider, patient informed [place] Rodrigez, RN documented in this encounter Plan of Treatment Upcoming Encounters Date Type Specialty Care Team Description 02/19/2022 Laboratory Appointment Lab 02/19/2022 Office Visit Cardiology Liz Poole [facility] Cardiology Dept [place], [place] [address] (Wo rk) 03/26/2022 Office Visit Cardiology Vitaliy Nobles MD [facility] ER CARDIOLOGY [place], [place] [address] (Wo rk) documented as of this encounter Visit Diagnoses Not on filedocumented in this encounter Care Teams Technical Account Manager Relationship Specialty Start Date End Date Lovely Vicente MD PCP - General 04/16/15 [facility] [address] [place] [address] documented as of this encounter
--- OUTSIDE RECORDS SUMMARY | 2022-02-18 08:18 | XMS_ITS | Encounter Summary ---
:1945 Author Organization [facility] [place] [address] Care Team Providers Name Role Phone Lovely Vicente MD Primary Care Provider Reason for Visit Reason Comments Pain Management Ankle Pain Toe Pain Encounter Details Date Type Department Care Team Description 07/30/2017 Office Visit Pain Management at Barbra Soares, Per ipheral neuropathy [place] [employer]IVATE [employer]GAGE B[employer]ER SAFE due to ischemia [facility] [address], [place], [place] [phone] Social History Tobacco Use Types Packs/Day Years [...] Soares APRN - 07/30/2017 1:45 PM EST [facility] [place] [address] Phone: PAIN MANAGEMENT NEW PATIENT / CONSULTATION NOTE DATE OF VISIT 07/30/2017 Patient Don Fatima 1945 REFERRING PROVIDER Lovely Vicente MD [address] [place] [id number] PRIMARY CARE PROVIDER Lovely Vicente MD CHIEF [...] much relief PAST THERAPIES: Nothing MEDICATIONS The [place] Prescription Monitoring Program was checked and no [...] SETUP performed by Manny Mcknight MD at [facility] OR ??? PRO CABG, ARTERIAL, SINGLE N/A 07/07/2017 @CABG, USING ARTERIAL GRAFT;SINGLE ARTERIAL GRAFT (WRVU 33.75) performed by Yuan Retana MD at [facility] OR ??? PRO CABG, ARTERY-VEIN, TWO N/A 07/07/2017 @CABG, TWO VENOUS GRAFTS & ARTERIAL GRAFT (WRVU 7.93) performed by Yuan Retana MD at [facility] OR ??? PRO COLONOSCOPY, REMV LESN, SNARE 01/16/2014 COLONOSCOPY, POLYPECTOMY, REMOVAL LESION BY SNARE performed by Nohemi Jaimes MD at [facility] ENDOSCOPY ??? PRO ENDOSCOPY W/VIDEO-ASST VEIN HARVEST, CABG Right 07/07/2017 ENDOSCOPIC HARVEST VEIN(S) FOR CABG (WRVU 0.31) performed by Yuan Retana MD at [facility] OR ??? PRO THYROIDECTOMY 03/28/2013 THYROIDECTOMY, [...] referral, Lovely Vicente MD [address] [place] [address]. 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
--- OUTSIDE RECORDS SUMMARY | 2022-02-18 08:18 | XMS_ITS | Encounter Summary ---
:1945 Author Organization [facility] Address [facility] [address] [place] [address] Care Team Providers Name Role Phone Lovely Vicente MD Primary Care Provider Encounter Details Date Type Department Care Team Description 07/29/2017 Transcribe Orders Laboratory Lovely Vicente, Coronary artery rupture; [facility] Ischemic cardiomyopathy; [facility] [address] Atherosclerosis of [place] co ronary artery, angina presence unspecified, unspecified whether [place] or transplanted heart; [place], [place] [address] Essential hypertension, malignant; [id number] [place], [place] 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, unspecified halfway insulin use status [phone] [id number] Social History Tobacco Use Types Packs/Day Years [...] Visit Cardiology Liz Poole PA [facility] er Cardiology Dept [place], [place] [address] (Wo rk) 03/26/2022 Office Visit Cardiology Vitaliy Nobles MD [facility] ER CARDIOLOGY [place] [id number] (Wo rk) Scheduled Orders Name Type Priority Associated Diagnoses Order S chedule Lab Use Only, Fax Lab Routine Coronary arter y rupture Expected: 07/29/2017 Request Ischemic cardiom yopathy (Approximate), Atherosclerosis of [place] Ex jose: 07/29/2018 coronary artery, angina presence unspecified, unspecified whether [place] or transplanted heart Essential hypertension, malignant documented as of this encounter Results Uric acid (08/04/2017 12:55 PM EST) athologist Signature Uric Acid 7.1 3.5 - 8.5 [facility] R[facility]AN mg/dL [facility] Specimen Anatomical Collection Method Collection Time Receive d Time (Source) Location / / Volume Laterality Blood specimen 08/04/2017 12:55 8 1:01 (specimen) PM EST PM EST Resulting Agency Comment Spec In Lab Lovely Vicente MD CHEMISTRY ORDERABLES Performing Organization Address City/State/[place] [address] (ABNORMAL) Hemogram (08/04/2017 12:55 PM EST) Analysis Performed At Patho logist Time Signature WBC 15.8 (H) 4.0 - 9.5 [place] [facility] x10(3)/[facility] LABORATORY RBC 3.48 (L) 4.58 - [place] 5.54 [facility] x10(6)/[facility] LABORATORY Hemoglobin 9.9 (L) 13.7 - [place] 16.5 gm/dL [facility] Hematocrit 31.4 (L) 40.5 - [place] 48.5 % [facility] MCV 90.2 82.9 - [place] 93.[address] [facility] MCH 28.4 27.5 - [place] 32.[address] [facility] MCHC 31.5 (L) 32.0 - [place] 35.7 gm/dL [facility] Platelets 310 145 - 357 [place] x10(3)/[facility] LABORATORY RDWSD 51.8 (H) 36.0 - [facility] 45.0 [facility] LABORATORY RDWCV 15.8 (H) 11.4 - [facility] 13.8 % [facility] MPV 8.9 7.6 - 12.9 [facility] LABORATORY nRBC % Auto 0.0 % [facility] nRBC Abs Auto 0.000 0.000 - [facility] 0.000 [facility] x10(3)/[facility] LABORATORY Specimen Anatomical Collection Method Collection Time Receive d Time (Source) Location / / Volume Laterality Blood specimen 08/04/2017 12:55 8 1:01 (specimen) PM EST PM EST Resulting Agency Comment Spec In Lab Lovely Vicente MD HEMATOLOGY ORDERABLES Performing Organization Address City/State/ZIP [place] [address] (ABNORMAL) Comprehensive metabolic panel (non-fasting) (08/04/2017 12:55 PM EST) P athologist Signature Glucose Lvl 208 (H) 65 - 199 [facility] mg/dL [facility] Comment: Diabetes: >=200 mg/dL plus symp toms BUN 32 (H) 10 - 20 mg/dL [facility] Creatinine 1.58 (H) 0.80 - 1.50 mg/dL [facility] Sodium 136 135 - 145 mmol/L [facility] Potassium 5.5 (H) 3.5 - 5.0 mmol/L [facility] - 10.5 mg/dL [facility] Total Protein 6.9 6.1 - 8.0 gm/dL [facility] Albumin 3.4 3.2 - 5.2 gm/dL [facility] AST 20 0 - 39 unit/L [facility] ALT 21 0 - 55 unit/L [facility] Alk Phos 93 40 - 120 unit/L [facility] Total Bilirubin 0.4 0.2 - 1.3 mg/dL [facility] Estimated GFR 43 (L) >=60 [facility] Comment: The reported eGFR should be multiplied b y 1.2 for patients. The MDRD is not an appropriate measure o f renal function for patients with body mass extremes or in patients with acute kidney failure. http://[place]/DHnkdep http://[place]/DHMCnkf Specimen Anatomical Collection Method Collection Time Receive d Time (Source) Location / / Volume Laterality Blood specimen 08/04/2017 12:55 8 1:01 (specimen) PM EST PM EST Resulting Agency Comment Spec In Lab Lovely Vicente MD CHEMISTRY ORDERABLES Performing Organization Address City/State/[place] [address] (ABNORMAL) Hemoglobin A1c (08/04/2017 12:55 PM EST) Analysis Performed At Patho logist Time Signature Hemoglobin A1C 6.2 (H) 4.3 - 5.6 [facility] [...] [id number] Est Avg Gluc See note mg/dL [facility] Comment: Estimated Average Glucose not [...] into estimated average glucose values. ??Diabetes Care 2008:31(8):7326-0253. Specimen Anatomical Collection Method Collection Time Receive d Time (Source) Location / / Volume Laterality Blood specimen 08/04/2017 12:55 8 1:01 (specimen) PM EST PM EST Resulting Agency Comment Spec In Lab Lovely Vicente MD CHEMISTRY ORDERABLES Performing Organization Address City/State/[place] [address] (ABNORMAL) Prothrombin Time (08/04/2017 12:55 PM EST) P athologist Signature PT 35.4 (H) 11.8 - 14.0 [facility] LABORATORY INR 3.5 (H) 0.9 - 1.1 [facility] [...] Organization Address City/State/ZIP [place] [address] documented in this encounter Visit Diagnoses Diagnosis Coronary artery rupture Acute myocardial infarction, unspecified site, episode of care unspecified Ischemic cardiomyopathy Other specified forms of chronic ischemi c heart disease Atherosclerosis of [place] coronary arter y, angina presence unspecified, unspecified whether [place] or transplanted heart Essential hypertension, malignant Diabetes mellitus due to underlying cond ition with diabetic nephropathy, unspecified intermediate card tender insulin use status Chronic systolic heart failure documented in this encounter Care Teams Automatic Buffer Relationship Specialty Start Date End Date Lovely Vicente MD PCP - General 04/16/[address] [place] [address] documented as of this encounter
--- OUTSIDE RECORDS SUMMARY | 2022-02-18 08:18 | XMS_ITS | Encounter Summary ---
:1945 [place] [address] Care Team Providers Name Role Phone Lovely Vicente MD Primary Care Provider Encounter Details Date Type Department Care Team Description 07/29/2017 Telephone Pain Aurelia Crawford MD [facility] [place] [address] [facility] [phone] [place], [place] [address] (Wo rk) Social History Tobacco [...] [facility] er Cardiology Dept [place], [place] [address] (Wo rk) 03/26/2022 Office Visit Cardiology Vitaliy Nobles MD [facility] CARDIOLOGY [place], [place] [address] (Wo rk) documented as of this encounter Visit Diagnoses Not on filedocumented in this encounter Care Teams Weapons Mechanic Relationship Specialty Start Date End Date Lovely Vicente MD PCP - General 04/16/[address] [place] [address] documented as of this encounter
--- OUTSIDE RECORDS SUMMARY | 2022-02-18 08:18 | XMS_ITS | Encounter Summary ---
:1945 [place] [address] Care Team Providers Name Role Phone Lovely Vicente MD Primary Care Provider Encounter Details Date Type Department Care Team Description 07/16/[address] [facility] C Manuela Holliday, [facility] [place] [address] ENDOCRINOLOGY DEPT [phone] [place], [place] [address] (Wo rk) Social History Tobacco [...] Cardiology Liz Poole PA [facility] Cardiology [place], [place] [address] (Wo rk) 03/26/2022 Office Visit Cardiology Vitaliy Nobles MD [facility] ER CARDIOLOGY [place], [place] [address] (Wo rk) documented as of this encounter Visit Diagnoses Not on filedocumented in this encounter Care Teams Instructor Apparel Manufacture Relationship Specialty Start Date End Date Lovely Vicente MD PCP - General 04/16/[address] [place] [address] documented as of this encounter
--- OUTSIDE RECORDS SUMMARY | 2022-02-18 08:19 | XMS_ITS | Encounter Summary ---
:1945 Author Organization [facility] [place] [address] Care Team Providers Name Role Phone Lovely Vicente MD Primary Care Provider Reason for Referral Consultation (Routine) - Closed Specialty Diagnoses / Referred By Contact Referred To Contact Procedures Cardiac Rehabilitation Diagnoses S/P CABG x 3 Yuan Webber, Cardiac Rehab, [address] [place] CARDIOTHORACIC [address] [place] [address] Referral ID Status Reason Start Date Expiration Date Visits V isits Requested Authorized [id number] Closed Consult, 07/14/2017 01/10/2018 36 36 Test & Treat Reason for Visit Auth/Cert Specialty Diagnoses / Procedures Referred By Contact Refer red To Contact Diagnoses STEMI (ST elevation myocardial infarction) NSTEMI STEMI Procedures CARDIAC CATHETERIZATION NAYE IPI Referral ID Status Reason Start Date Expiration Date Visits Requ ested Visits Authorized [id number] 1 1 Encounter Details Date Type Department Care Team Description 07/05/2017 - Hospital Encounter Cardiac Special Daphne Shahid MD [facility] [place] [address] Non-ST elevation myocardial infarction ( NSTEMI); 07/14/2017 Care Unit Yuan Preciado MD [facility] [place] [address] S/P CABG x 3 [place] [id number] Social History Tobacco Use Types Packs/Day Years [...] Patient Age: 72 y.o. Birthdate: 1945 Language: Serbian Race: White Ethnicity: Not nor Admit Date: [...] , @ 1:20p Patient to follow-up with Heel Stainer/heart failure team in one week. An appointment will be made for you. You may call [phone] Patient to follow-up with Cardiac Surgery, Dr. Yuan Webber, in ~ 4 weeks with CXR, EKG. Inpatient Provider Contact Information: [facility] Section of Cardiac Surgery [facility] [address] FAX [phone] Discharge Diagnoses (Hospital Problems) Primary Diagnoses: CAD [...] SETUP performed by Manny Mcknight MD at [facility] MAIN OR ??? PRO CABG, ARTERIAL, SINGLE N/A 07/07/2017 @CABG, USING ARTERIAL GRAFT;SINGLE ARTERIAL GRAFT (WRVU 33.75) performed by Yuan Webber MD at [facility] MAIN OR ??? PRO CABG, ARTERY-VEIN, TWO N/A 07/07/2017 @CABG, TWO VENOUS GRAFTS & ARTERIAL GRAFT (WRVU 7.93) performed by Yuan Webber MD at [facility] MAIN OR ??? PRO COLONOSCOPY, REMV LESN, SNARE 01/16/2014 COLONOSCOPY, POLYPECTOMY, REMOVAL LESION BY SNARE performed by Nohemi Jaimes MD at [facility] ENDOSCOPY ??? PRO ENDOSCOPY W/VIDEO-ASST VEIN HARVEST, CABG Right 07/07/2017 ENDOSCOPIC HARVEST VEIN(S) FOR CABG (WRVU 0.31) performed by Yuan Webber MD at [facility] MAIN OR ??? PRO THYROIDECTOMY 03/28/2013 THYROIDECTOMY, TOTAL OR COMPLETE performed by Manny Mcknight MD at [facility] MAIN OR Prior To Admission Medications Prescriptions Prior to Admission Medication Sig Dispense Refill Last Dose ??? levothyroxine (SYNTHROID) 175 mcg Tablet Take 1 tablet by mouth daily. 90 tablet 3 07/05/2017 [id number] ??? ascorbic acid, vitamin C, (VITAMIN C) [...] hospital and ruled infor non-ST segment elevation DE. This almost certainly represents the residual of [...] Hospital Course: Gregory Hoang was admitted to [facility] on 07/05/2017 via the Cardiology Service. During his hospital course, he was taken emergently to the fish hatchery laborer for an ongoing STEMI. An IABP [...] not take or discontinue any prescription or bhan-ijf-cxmrboa medications without asking your doctor or pharmacist [...] day to have your insulin doses adjusted. [facility] Endocrine clinic office Discharge Instructions: Call your doctor if: You have a fever of greater than 101 degrees, shaking chills, if you develop redness or drainage from your incision sites, or if you have questions. Please call your surgeon's office if you have any discharge or drainage from your chest incision. Your surgeon, Dr. Yuan Webber and/or the Cardiac Surgery Physician Ob Gyn Team may be reached at . Weight: [...] Dr. Yuan Webber. You may use a [place] Track or treadmill but avoid any pulling [...] friends, go to a movie, go to [employer], etc. Heavy activities: No hunting, skiing, jogging, snow shoveling, snowmobiling, lawn mowing, swimming, golf or tennis until after your return appointment with the surgeon. Do not ride motorcycles, Movie[employer] tractors or horses. Avoid the use of [...] should resume a low fat, low cholesterol, [place] Heart Association Diet/Diabetic diet. Driving: No driving [...] , @ 1:20p Patient to follow-up with Heel Stainer/heart failure team in one week. Appointment will be made for you. You may call [phone] Patient to follow-up with Cardiac Surgery, Dr. Yuan Webber, in ~ 4 weeks with CXR, EKG. Cardiac Rehabilitation: Gregory Hoang was seen today regarding participation in the outpatient Phase 2 Cardiac Rehabilitation at [facility]. The patient agrees to a referral to this program. The referral will be sent at discharge and the patient should be contacted by the Program within 1- 2 weeks from discharge. ?? Future Appointments and Orders Future Appointments Provider Department Dept Phone 09/07/2017 3:00 PM LAB, THREE L Lab 3L [facility] [phone] 09/07/2017 4:00 PM Luz Prescott MD Endocrinology at [place] [phone] Future Orders Complete By Expires EKG 12 Lead [EKG1 Custom] 08/14/2017 02/13/2018 Process Instructions: Scheduling Instructions: Questions: Which location will this be performed?: [place] Is a rhythm strip needed?: No If EKG Reason is Pre-op Evaluation, indicate diagnosis for surgery.: XR Chest PA & Lateral (Generic) [62047 [id number] Custom] 08/14/2017 02/13/2018 Process Instructions: Scheduling Instructions: Questions: Where will study be performed?: [facility] Portable exam?: Reason for exam and clinical history: CABG x 3 Other pertinent information: Stat read required?: Date of injury if applicable: Requested Time: Referral to Cardiac Rehab [FTX791 Custom] As directed Process Instructions: If no progress note charted, please enter Clinical details in comments. Scheduling Instructions: Questions: My question or request is: s/p CABG. Cardiac rehab at [facility] Referral to Home Health - at DISCHARGE [HTV9630 CPT(R)] As directed Process Instructions: Scheduling Instructions: Comments: DOCUMENTATION FOR VNA SERVICES (INCLUDING THOSE PATIENTS WITH MEDICARE COVERAGE REQUIRING HOME VNA SERVICES AND/OR HOSPICE SERVICES) PATIENT'S LOCATION: Gregory Hoang [address] [place] [address] [place] [address] (home) Telephone Information: Solar Pv Installer's Name: self In discussion with the attending physician, it is certified that this patient is under their care and that they, or a Nurse Practitioner, or Physician Ob Gyn who is working directly with them, had [...] AGENCY: [facility] ([facility] [place] [employer]-is in [place] PHONE: [phone] FAX: [phone] RN orders: Cardiopulmonary assessment, incisional assessment, assess vital signs, assessment of rehab progress, medication management and effectiveness, home safety evaluation. Please draw INR if indicated and send result to:Dr Vicente [phone] PT ORDERS: Continue rehab for endurance, gait stability and strength with mobility and transfers. Home safety evaluation. Home exercise program if appropriate. Start of Care Date:24-48 hours after discharge SPECIAL INSTRUCTIONS: For any follow up questions, needs, or issues please call the Cardiac Surgery Office at [phone] FOR MEDICARE ONLY: (please delete this section [...] OR AFTER 07/17/2017 Signed: Martha Teague APRN [facility] Section of Cardiac Surgery [facility] [address] FAX [phone] Date: 07/14/2017 CC: MD Ivania Cr Betsy, PA [address] [place] [phone] documented in this encounter Discharge Instructions Discharge [...] day to have your insulin doses adjusted. [facility] Endocrine clinic office Patient InstructionsStMartha mcdonald APRN [...] not take or discontinue any prescription or sigz-dqz-vrpldun medications without asking your doctor or pharmacist [...] juice or regular (not diet) soda 6 Realeyes 3Ds small box of raisins 4 glucose tablets [...] day to have your insulin doses adjusted. [facility] Endocrine clinic office ? Discharge Instructions: ?? Call your doctor if: You have a fever of greater than 101 degrees, shaking chills, if you develop redness or drainage from your incision sites, or if you have questions. Please call your surgeon's office if you have any discharge or drainage from your chest incision. Your surgeon, Dr. Yuan Webber and/or the Cardiac Surgery Physician Ob Gyn Team may be reached at . ?? [...] Dr. Yuan Webber. You may use a [place] Track or treadmill but avoid any pulling [...] friends, go to a movie, go to [employer], etc. ?? Heavy activities: No hunting, skiing, jogging, snow shoveling, snowmobiling, lawn mowing, swimming, golf or tennis until after your return appointment with the surgeon. Do not ride motorcycles, [employer] tractors or horses. Avoid the use of [...] should resume a low fat, low cholesterol, [place] Heart Association Diet/Diabetic diet. ?? Driving: No [...] @ 1:20p ?? Patient to follow-up with Heel Stainer/heart failure team in one week. An appointment has been made for you, you can call [phone] ?? Patient to follow-up with Cardiac Surgery, Dr. Yuan Webber, in ~ 4 weeks with CXR, EKG. ? Cardiac Rehabilitation: Gregory Hoang??was seen today regarding participation in the outpatient Phase 2 Cardiac Rehabilitation at [facility]. ?? The patient agrees to a referral to this program.? The referral will be sent at discharge and the patient should be contacted by the Program within 1- 2 weeks from discharge. ? Future Appointments and Orders Future Appointments Provider Department Dept Phone ?? 09/07/2017 3:00 PM LAB, THREE L Lab 3L [facility] [phone] ?? 09/07/2017 4:00 PM Luz Prescott MD Endocrinology at [place] [phone] Future Orders Complete By Expires ?? EKG 12 Lead [EKG1 Custom] 08/14/2017 02/13/2018 ?? Process Instructions: ? Scheduling Instructions: ? Questions: ? Which location will this be performed?: [place] ?? Is a rhythm strip needed?: No ?? If EKG Reason is Pre-op Evaluation, indicate diagnosis for surgery.: ?? XR Chest PA & Lateral (Generic) [[id number] Custom] 08/14/2017 02/13/2018 ?? Process Instructions: ? Scheduling Instructions: ? Questions: ? Where will study be performed?: [facility] ?? Portable exam?: ?? Reason for exam and clinical history: CABG x 3 ?? Other pertinent information: ?? Stat read required?: ?? Date of injury if applicable: ?? Requested Time: ?? Referral to Cardiac Rehab [OVA014 Custom] As directed ? Process Instructions: ?? If no progress note charted, please enter Clinical details in comments. ?? Scheduling Instructions: ? Questions: ? My question or request is: s/p CABG. Cardiac rehab at [facility] ? Arrangements for VNA/home care: As [...] RN - 07/14/2017 2:34 PM EST The patient/public relations representative has been provided a list of Home Health Agencies/DME vendors which serve their preferred geographic area. A letter describing our affiliations was reviewed with them and theywere educated about their right to choose where referrals are placed. Patient requests referral to [facility] PHONE: [phone] FAX: [phone] Expected date of discharge: 07/14 Referral routed to the Sanitation Technician for matching with agency/vendor and to [...] day to have your insulin doses adjusted. [facility] Endocrine clinic office Kathie Carrera APRN [facility] Endocrinology Diabetes Management Pager [phone] 20 minutes of this 35 minute visit was spent with the patient in counseling on diabetes and treatment plan, reviewing all glucose and insulin data as well as relevant laboratory results with the patient, and coordination of care on the inpatient unit including nursing and primary team. Zulma Andres, RN - 07/14/2017 10:30 AM EST The patient/public relations representative has been provided a list of Home Health Agencies/DME vendors which serve their preferred geographic area. A letter describing our affiliations was reviewed with them and theywere educated about their right to choose where referrals are placed. Patient requests referral to : [facility] ([facility] [place] [employer]-is in [place] PHONE: [phone] FAX: [phone]. Expected date of discharge: 07/14/17 Referral routed to the Sanitation Technician for matching with agency/vendor and to [...] hours. If BG remains greater than 240, enmyln66 units (no more than three times) &??call [...] #6 s/p CABG X3. FSBG [address] at [place], reports no symptoms but did drink some [...] Will continue to follow Katerin Azul APRN [facility] Endocrinology Diabetes Management Pager [phone] 15 minutes of this 25 minute visit [...] of infiltration/extravasation Discussed plan of care with PEDIATRIC OCCUPATIONAL THERAPIST and RN. Elevate exrtemity and apply intermittent Warm compresses. Name of MD contacted Dr. Shaw Brown 07/13/2017 @ 0646 Name of RN contacted Ale Rangel RN Name of Pharmacist if consulted NA Name of Plastics MD ( if consulted) NA (Mandatory photo for infiltrations/ extravasations scoring a stage 2 or greater, but recommended forstage 1)( include measuring tape and identifier in the photo) PHONE MANAGER CARING FOR THIS PATIENT WILL CONTINUE TO [...] measuring tape and identifier in the photo) PHONE MANAGER CARING FOR THIS PATIENT WILL CONTINUE TO [...] regard to both infiltrates addressed by this scenario writer.All of Mr. Hoang's responses were entirely appropriate. Images of infiltrates attached here. Martha Sharp APRN - 07/13/2017 8:01 AM EST Cardiac Surgery Progress Note: ID: [id number] 72 year old male POD#6 s/p CABGx3 [...] discharge. ?? I have met with the patient/public relations representative to discuss discharge planning needs. I have provided the [facility], Office of Care Management letter from the Teletypewriter Installer pertaining to rehab referrals. I have also provided a letter describing our affiliations within the [facility] and educated them about their right to choose where referrals are placed. ?? I reviewed the different levels of rehab including SNF, swing, acute and LTAC with the patient/public relations representative. ?? The patient/public relations representative has been provided a list of facilities within their preferred geographic area. ?? I have requested that the patient/public relations representative provide at least three choices for referral. ?? The patient/public relations representative have requested referrals to: ?? 1. . ?? 2. [facility] ?? 3. More to be entered ?? Expected date of discharge: 07/14 Note routed to Sanitation Technician who will communicate referrals to facilities and [...] hours. If BG remains greater than 240, blginm73 units (no more than three times) & [...] hours. If BG remains greater than 240, vyxcvv37 units (no more than three times) & call for new basal insulin orders. ??If less than 240 after two hours, give no insulin and resume prior schedule. Will continue to follow Katerin Patel. STACIE Azul [facility] Endocrinology Diabetes Management Pager [phone] 20 minutes of this 35 minute visit was spent with the patient in counseling on diabetes and treatment plan, reviewing all glucose and insulin data as well as relevant laboratory results with the patient, and coordination of care on the inpatient unit including nursing and primary team. Makayla Stevenson APRN - 07/12/2017 9:52 AM EST Cardiac Surgery Progress Note: ID: [id number] 72 year old male POD#5 s/p CABGx3 [...] 07/11/2017 7:18 PM EST Patient arrived from [facility]. VSS. MSI dressing pulled off [...] hours. If BG remains greater than 240, azigzc45 units (no more than three times) & [...] AM EST Cardiac Surgery Progress Note: ID: [id number] 72 year old male POD#4 s/p CABGx3 [...] AM EST Cardiac Surgery Progress Note: ID: [id number] 72 year old male POD#3 s/p CABGx3 [...] Gas) No results found for: PHART, PO2ART, RJR4YWB Assessment/Plan: 72 year old male POD#3 s/p [...] Encounter Note Patient Name: Gregory Hoang : [id number] MR#: [id number] Admit Date: 07/05/2017 4:20 PM Hospital Day 4 days Narrative: Patient was sitting in chair, hugging heart pillow, opened his eyes, nodding to come into room Assessment: Patient was sleepy. Intervention and Outcome: Introduced elementary special education teacher services and patient reached his hand out in appreciation. Follow-up: Bacteriologist Medical remains available for support. Time in Direct [...] supporting interventions and documentation on the unit. INCK SEGAL MD 07/09/2017 Yane Vences RN - 07/09/2017 10:45 AM EST Report given to staff respiratory therapist to cover care Maddison Cee PA - 07/09/2017 9:00 AM EST Cardiac Surgery Progress Note: ID: [id number] 72 year old male POD#2 s/p CABGx3 [...] Attending Surgeon on rounds. Signed: STEPHANIE Iqbal [facility] Section of Cardiac Surgery Date: 07/09/2017 Magnolia Santiago [facility] - 07/09/2017 1:33 AM EST [...] when IABP d/c'ed. Gretchen Carolina, PT Pager [phone] Maddison Cee PA - 07/08/2017 11:27 AM EST Cardiac Surgery Progress Note: ID: [id number] 72 year old male POD#1 s/p CABGx3 [...] Attending Surgeon on rounds. Signed: STEPHANIE Iqbal [facility] Section of Cardiac Surgery Date: [...] unit. NICK SEGAL MD 07/08/2017 Jay Munoz [facility] - 07/08/2017 4:33 AM EST [...] in place in R femoral. No hematoma. AGRICULTURAL ENGINEERING TECHNICIANS- Intact Psych- Anxious Skin- Dry, no peripheral [...] Dinorah Ramírez MD, PGY-1 Cardiology S1 (pgr. [id number]) Daphne Shahid MD - 07/06/2017 10:18 PM [...] intact. IABP in place in R femoral. AGRICULTURAL ENGINEERING TECHNICIANS- Intact Psych- Anxious Skin- Dry, no peripheral [...] Dinorah Ramírez MD, PGY-1 Cardiology S1 (pgr. [id number]) . CARDIOLOGY ATTENDING NOTE Patient: Gregory Hoang [...] note for details. DAPHNE SHAHID MD Pager [phone] Jet Mckenna MD - 07/05/2017 6:48 PM EST Preliminary Cardiac Catheterization Procedure Note: Procedure(s) performed: Left heart cath, IABP insertion Access: Right ELECTROMECHANICAL ASSEMBLER-->8fr IABP A time-out was conducted prior to [...] effect. Heparin gtt maintained. Pt transferred to fish hatchery laborer. documented in this encounter H&P Notes Daphne Shahid MD - 07/05/2017 6:08 PM EST CARDIOLOGY HISTORY & PHYSICAL EXAM Date of Admission: 07/05/2017 ( Hospital Day 0 days ) Responsible Attending: Daphne Shahid MD PCP: Lovely Vicente MD PCP#: [phone] Patient Active Problem List Diagnosis Code ??? [...] No significant valvular disease. Taken to the fish hatchery laborer urgently for ongoing STEMI. [facility] Labs: INR 1.0 WBC 5.88 Hgb [...] monitor I/O - s/p lasix in the fish hatchery laborer, redose to aim net neg 1L [...] - ISS - hold metformin - f/u [place] #Home Meds - continue levothyroxine 175mcg - CPAP at night # Routine - DVT PPx: heparin drip - Diet: NPO - Code Status: FULL - Dispo: [facility] Cedric Bey MD Internal Medicine, PGY-2 Cardiology S1, Team Pager # [phone] CARDIOLOGY ATTENDING NOTE Patient: Gregory Hoang Date [...] amenable for PCI. DAPHNE SHAHID MD Pager [phone] documented in this encounter Miscellaneous Notes Consult Note - Daphne Shahid MD - 07/14/2017 11:46 AM EST Heart Failure Service Inpatient Consult Note Gregory Hoang Date of : 1945 Age: 72 y.o. Today's date: 07/14/17 PCP: Lovely Vicente MD COPPER PLATER: None Place of Service: [facility] Reason for Consult: Dr. Webber has requested [...] SETUP performed by Manny Mcknight MD at [facility] MAIN OR ??? PRO CABG, ARTERIAL, SINGLE N/A 07/07/2017 @CABG, USING ARTERIAL GRAFT;SINGLE ARTERIAL GRAFT (WRVU 33.75) performed by Yuan Webber MD at [facility] MAIN OR ??? PRO CABG, ARTERY-VEIN, TWO N/A 07/07/2017 @CABG, TWO VENOUS GRAFTS & ARTERIAL GRAFT (WRVU 7.93) performed by Yuan Webber MD at [facility] MAIN OR ??? PRO COLONOSCOPY, REMV LESN, SNARE 01/16/2014 COLONOSCOPY, POLYPECTOMY, REMOVAL LESION BY SNARE performed by Nohemi Jaimes MD at [facility] ENDOSCOPY ??? PRO ENDOSCOPY W/VIDEO-ASST VEIN HARVEST, CABG Right 07/07/2017 ENDOSCOPIC HARVEST VEIN(S) FOR CABG (WRVU 0.31) performed by Yuan Webber MD at [facility] MAIN OR ??? PRO THYROIDECTOMY 03/28/2013 THYROIDECTOMY, TOTAL OR COMPLETE performed by Manny Mcknight MD at [facility] MAIN OR Outpt Meds: Current [...] following studies: EKG 07/14/17: NSR 75 bpm, SPIRAL WEAVER anterior infarct, LAD CXR 07/11/17: FINDINGS: Sternotomy wires. The patient has been extubated, left chest tube removed, and [place]-Suzi catheter removed since the 07/07/2017 study. Atelectasis [...] was discussed with Zehra. Jaden Kelley MD Sales Representative Door To Door Pager [phone] CARDIOLOGY ATTENDING NOTE Patient: Gregory Hoang Date [...] heart failure clinic. DAPHNE SHAHID MD Pager [phone] Plan of Care - Alden Chavarria, DAIRY PROCESSING EQUIPMENT OPERATOR - 07/14/2017 11:35 AM EST Problem: Patient [...] Discharge Disposition: home with assist Alden Chavarria, DAIRY PROCESSING EQUIPMENT OPERATOR Pager: [phone] Inpatient Physical Therapy Problem: Acute Rehab Services [...] sit/sit to supine -- Bed Mobility Goal, [place] Level supervision required -- Bed Mobility Goal, [...] - 3 days -- Gait Training Goal, [place] Level supervision required -- Gait Training Goal, [...] days -- Transfer Training Goal, Activity Type yda-zv-yonvq/kines-ve-uyf;brw-wv-zbcox/iidcn-an-yze;toilet -- Transfer Train Goal, [place] Level supervision required -- Transfer Training Goal, [...] keeping present for 2 days per family. Shoe Maker noted of frustrations, house keeping sent to room. Patient offered showered twice, refused. at bedside, frustrated that shower not complete, informed that patient had refused several times. requesting to see SPRAYER HAND, paged sent to Martha, will come to bedside (middle of consult). not willing to wait, Martha notified that family had gone home. Encouraged to come for morning rounds a t 8am. Diabetes team at bedside - insulin adjustments made. Call cabello in reach. Continue to monitor. PLAN MOVING FORWARD: Ambulate, dressing changes BID, Please change drsg at 4am per Martha SPRAYER HAND request. INDIVIDUALIZED FALL PREVENTION INTERVENTIONS: Patient-specific fall [...] levels on the lower side, 60ml of [place] juice given after a FS of 80. [...] Conf 07/13/17 0502 Interdisciplinary Rounds/Family Conf Participants watch caser;dietitian/nutrition services;nursing;occupational therapy;patient;pharmacy;physical therapy;physician Plan of Care - [...] Anticipated Discharge Disposition: home with assist Pager: [phone] CLARISSA SEGAL, PT 07/12/2017 Physical Therapy Rehabilitation [...] to sit/sit to supine Bed Mobility Goal, [place] Level supervision required Bed Mobility Goal, Additional Goal adheres to psternal precautions for transfer Goal: Gait Training Goal Stand Alone Therapy Goal Outcome: Ongoing (Interventions Implemented as Appropriate) 07/12/17 1225 Gait Training Goal Gait Training Goal, Date Established 07/12/17 Gait Training Goal, Time to Achieve 2 - 3 days Gait Training Goal, [place] Level supervision required Gait Training Goal, Assist [...] 3 days Transfer Training Goal, Activity Type rbm-ec-rrzoi/cpwys-qf-nxr;ufx-le-bpihp/qeljh-le-qzq;toilet Transfer Train Goal, [place] Level supervision required Transfer Training Goal, Additional Goal adheres to sternal precautions during transfer Consult Note - Octavia Vaughn RN - 07/12/2017 10:50 AM EST [facility] Gregory Hoang was seen today regarding participation in the outpatient Phase 2 Cardiac Rehabilitation at [facility]. The patient agrees to a referral [...] IV site, amio to other piv and PPA TEACHER at bedside to help assess, IV removed. [...] Outcome: Ongoing (Interventions Implemented as Appropriate) 07/11/17199907/11/17200907/12/17 [facility] Daily Care Interventions Self-Care Promotion -- -- [...] staff, he stood and marched in place. [place] weak, wanting to sit back down. Remained [...] Outcome: Ongoing (Interventions Implemented as Appropriate) 07/05/17 0046 Mutuality/Individual Preferences What Anxieties, Fears or Concerns [...] Health/Prescription Coverage: Primary Insurance: MEDICARE Secondary Insurance: [employer] [place] Prescription Coverage: yes [facility]erred [facility]acy[facility] [place] Other: none Primary Care Provider: Lovely Vicente MD [phone] Patient/Caregiver Goals of Treatment:live and get my breath back Potential Needs for Transition of Care: Rehab/SNF: [facility] Home Health: NA DME: TBD Dialysis: na Community Resources: available Transportation: yes Other: none Anticipated Barriers to Discharge/Special Considerations: none Plan: Likely SNF Rehab before home A member of the Care Management team will continue to monitor progress, follow for continuity of care and assist with transition of care planning. ERLIN Weiss Pager: [phone] Consult Note - Katerin Azul RN - [...] management and to provide a review of assisted diabetes care. Diabetes History: Gregory Hoang has [...] potential to d/c gtt and start CF. [facility] diabetes care: Medications - Outpatient treatment regimen recommendations pending based on the hospital course. Monitoring - continue BG tid ac & hs Diet - low fat/low carb diet Exercise - weight-bearing exercise 30 min/day, as tolerated Thank you for allowing us to provide care for your patient W/E coverage, Dr. Jeane Tatum, pager [phone] Katerin Patel. STACIE Azul Endocrinology Diabetes Management Pager [phone] Plan of Care - Stephanie Godoy RN [...] Webber MD - 07/07/2017 6:27 PM EST [facility] Operative Note Patient Name: Gregory Hoang : [id number] MR#: [id number] Case Date: 07/07/2017 Surgeon: Surgeon(s) and Role: * Yuan Webber MD - Primary * Michael Drake PA - Physician Ob Gyn * Linda Flores PA - Physician Ob Gyn Preoperative diagnosis: 3VD Postoperative diagnosis: CAD, severe [...] Operative Note Patient Name: Gregory Hoang : [id number] MR#: [id number] Case Date: 07/07/2017 Surgeon: Surgeon(s) and Role: * Yuan Webber MD - Primary * Michael Drake PA - Physician Ob Gyn * Linda Flores PA - Physician Ob Gyn Preoperative diagnosis: 3VD Postoperative diagnosis: CAD, severe [...] major CV events such as , stroke, DE, repeat revascularization compared to PCI). In this [...] code status: Full Code Katty Jovani, MS3 [facility] Cardiology S1 (Pager [phone]) Plan of Care - Emelia Ibarra RN [...] hospital and ruled infor non-ST segment elevation DE. This almost certainly represents the residual of [...] SETUP performed by Manny Mcknight MD at [facility] MAIN OR ??? PRO COLONOSCOPY, REMV LESN, SNARE 01/16/2014 COLONOSCOPY, POLYPECTOMY, REMOVAL LESION BY SNARE performed by Nohemi Jaimes MD at [facility] ENDOSCOPY ??? PRO THYROIDECTOMY 03/28/2013 THYROIDECTOMY, TOTAL OR COMPLETE performed by Manny Mcknight MD at [facility] MAIN OR Social History: Social [...] with other involved physicians Yuan Webber MD [phone] Med Student Progress Note - Jovani Katty [...] chest wall L98.9 ??? Goiter E04.9 ??? MARI AVICTORIA (obstructive sleep apnea) on CPAP G47.33 ??? [...] major CV events such as , stroke, DE, repeat revascularization compared to PCI). 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 Lasix given in fish hatchery laborer, 1.4 L out at this time. [...] Liz Poole PA [facility] Cardiology Dept [place], [place] [address] (Wo rk) 03/26/2022 Office Visit Cardiology Vitaliy Nobles MD [facility] CARDIOLOGY [place], [place] [address] (Wo rk) Scheduled Orders Name [...] procedure are i n the results section. 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 TYPE AND SCREEN Routine 07/06/2017 12:00 ([facility]/SHANDA) PM EST APTT STAT 07/06/2017 11:24 Results [...] Routine 07/06/2017 8:10 Results f or this ([facility]) AM EST procedure are i n the [...] Timed 07/05/2017 4:55 Results f or this ([facility]) PM EST procedure are i n the [...] [place] at 08/19/2017 10:30 AM Martha Teague MATERIALS RESEARCH ENGINEER IMG DX ORDERABLES SCAN DOC: ACCOUNTING MANAGER ASSISTANT CONTROLLER (07/15/2017 12:00 AM EST) Narrative 07/15/2017 12:00 [...] Signature POC Glucose 186 65 - 199 [facility] Comment: Supplemental ranges: <140 mg/dL before meals <180 mg/dL all other times of the day Specimen Anatomical Collection Method Collection Time Receive d Time (Source) Location / / Volume Laterality Blood specimen 07/14/2017 11:56 7 (specimen) AM EST 11:56 AM EST Yuan Webber MD POINT OF CARE TEST ORDERABLE S Performing Organization Address City/State/[place] [address] POCT Glucose (07/14/2017 7:52 AM EST) athologist Signature POC Glucose 126 65 - [address] [facility] mg/dL [facility] Comment: Supplemental ranges: <140 mg/dL before meals <180 mg/dL all other times of the day Specimen Anatomical Collection Method Collection Time Receive d Time (Source) Location / / Volume Laterality Blood specimen 07/14/2017 7:52 AM 017 7:52 (specimen) EST AM EST Yuan Webber MD POINT OF CARE TEST ORDERABLE S Performing Organization Address City/State/[place] [address] (ABNORMAL) Prothrombin Time (07/14/2017 4:46 AM EST) athologist Signature PT 26.4 (H) 11.8 - 14.0 [facility] LABORATORY INR 2.4 (H) 0.9 - 1.1 [facility] [...] Wilson APRN HEMATOLOGY ORDERABLES Performing Organization Address City/[facility]/[place] [address] Potassium (07/14/2017 4:46 AM EST) athologist Signature Potassium 4.3 3.5 - 5.[address] [facility] mmol/L [facility] Comment: Please note: ??Patients with WBC [...] Wilson APRN CHEMISTRY ORDERABLES Performing Organization Address City/[facility]/[place] [address] POCT Glucose (07/14/2017 4:34 AM EST) athologist Signature POC Glucose 115 65 - 199 [facility] Comment: Supplemental ranges: <140 mg/dL before meals <180 mg/dL all other times of the day Specimen Anatomical Collection Method Collection Time Receive d Time (Source) Location / / Volume Laterality Blood specimen 07/14/2017 4:34 AM 017 4:34 (specimen) EST AM EST Yuan Webber MD POINT OF CARE TEST ORDERABLE S Performing Organization Address City/[facility]/ZIP Code Phon e Number [address] POCT Glucose (07/13/2017 11:33 PM EST) athologist Signature POC Glucose 132 65 - 199 [facility] mg/dL [facility] Comment: Supplemental ranges: <140 mg/dL before meals <180 mg/dL all other times of the day Specimen Anatomical Collection Method Collection Time Receive d Time (Source) Location / / Volume Laterality Blood specimen 07/13/2017 11:33 7 (specimen) PM EST 11:33 PM EST Yuan Webber MD POINT OF CARE TEST ORDERABLE S Performing Organization Address City/State/ZIP Code Phon e Number [address] POCT Glucose (07/13/2017 9:25 PM EST) athologist Signature POC Glucose 121 65 - 199 [place] [facility] mg/dL [facility] Comment: Supplemental ranges: <140 mg/dL before meals <180 mg/dL all other times of the day Specimen Anatomical Collection Method Collection Time Receive d Time (Source) Location / / Volume Laterality Blood specimen 07/13/2017 9:25 PM 017 9:25 (specimen) EST PM EST Yuan Webber MD POINT OF CARE TEST ORDERABLE S Performing Organization Address City/State/[place] [address] POCT Glucose (07/13/2017 4:55 PM EST) athologist Signature POC Glucose 79 65 - 199 [facility] mg/dL [facility] Comment: Supplemental ranges: <140 mg/dL before meals <180 mg/dL all other times of the day Specimen Anatomical Collection Method Collection Time Receive d Time (Source) Location / / Volume Laterality Blood specimen 07/13/2017 4:55 PM 017 4:55 (specimen) EST PM EST Yuan Webber MD POINT OF CARE TEST ORDERABLE S Performing Organization Address City/State/[place] [address] POCT Glucose (07/13/2017 11:16 AM EST) athologist Signature POC Glucose 163 65 - 199 [facility] mg/dL [facility] Comment: Supplemental ranges: <140 mg/dL before meals <180 mg/dL all other times of the day Specimen Anatomical Collection Method Collection Time Receive d Time (Source) Location / / Volume Laterality Blood specimen 07/13/2017 11:16 7 (specimen) AM EST 11:16 AM EST Yuan Webber MD POINT OF CARE TEST ORDERABLE S Performing Organization Address City/[facility]/[place] [address] POCT Glucose (07/13/2017 8:07 AM EST) P athologist Signature POC Glucose 96 65 - [address] [facility] mg/dL [facility] Comment: Supplemental ranges: <140 mg/dL before meals <180 mg/dL all other times of the day Specimen Anatomical Collection Method Collection Time Receive d Time (Source) Location / / Volume Laterality Blood specimen 07/13/2017 8:07 AM 017 8:07 (specimen) EST AM EST Yuan Webber MD POINT OF CARE TEST ORDERABLE S Performing Organization Address City/[facility]/[place] [address] (ABNORMAL) Prothrombin Time (07/13/2017 4:26 AM EST) P athologist Signature PT 20.8 (H) 11.8 - 14.0 [facility] LABORATORY INR 1.8 (H) 0.9 - 1.1 [facility] [...] Wilson APRN HEMATOLOGY ORDERABLES Performing Organization Address City/[facility]/[place] [address] (ABNORMAL) Basic Metabolic Panel (non-fasting) (07/13/2017 4:26 AM EST) athologist Signature Glucose Lvl 95 65 - [address] [facility] mg/dL [facility] Comment: Diabetes: >=200 mg/dL plus symp toms BUN 25 (H) 10 - 20 mg/dL [facility] Creatinine 1.19 0.80 - 1.50 mg/dL [facility]OR[facility] Sodium 143 135 - 145 mmol/L [facility] Potassium 3.7 3.5 - 5.0 mmol/L [facility] Comment: Please note: ??Patients with WBC >100,00 0 may have falsely elevated Potassium levels. ??For accurate Potassium quantif ication in these patients send serum separator tube (gold top) for subsequent determinations. ??Contact the Clinical Chemistry Laboratory if there are any qu estions. Chloride 104 98 - 107 mmol/L [facility] CO2 26 22 - 31 mmol/L [facility] Anion Gap 13 5 - 15 mmol/L [facility] Calcium 7.7 (L) 8.5 - 10.5 mg/dL [facility] Estimated GFR 60 >=60 [facility] Comment: The reported eGFR should be multiplied b y 1.2 for patients. The MDRD is not an appropriate measure o f renal function for patients with body mass extremes or in patients with acute kidney failure. http://[employer]OrderAhead/DHnkdep http://[employer])/DHMCnkf Specimen Anatomical Collection Method Collection Time Receive d Time (Source) Location / / Volume Laterality Blood specimen 07/13/2017 4:26 AM 017 4:46 (specimen) EST AM EST Resulting Agency Comment Spec In Lab Makayla Wilson APRN CHEMISTRY ORDERABLES Performing Organization Address City/State/[place] [address] POCT Glucose (07/13/2017 3:52 AM EST) athologist Signature POC Glucose 93 65 - [address] [facility] mg/dL [facility] Comment: Supplemental ranges: <140 mg/dL before meals <180 mg/dL all other times of the day Specimen Anatomical Collection Method Collection Time Receive d Time (Source) Location / / Volume Laterality Blood specimen 07/13/2017 3:52 AM 017 3:52 (specimen) EST AM EST Yuan Webber MD POINT OF CARE TEST ORDERABLE S Performing Organization Address City/State/ZIP Code Phon e Number [address] POCT Glucose (07/13/2017 12:21 AM EST) athologist Signature POC Glucose 80 65 - 199 [facility] mg/dL [facility] Comment: Supplemental ranges: <140 mg/dL before meals <180 mg/dL all other times of the day Specimen Anatomical Collection Method Collection Time Receive d Time (Source) Location / / Volume Laterality Blood specimen 07/13/2017 12:21 7 (specimen) AM EST 12:21 AM EST Yuan Webber MD POINT OF CARE TEST ORDERABLE S Performing Organization Address City/State/ZIP Code Phon e Number [address] POCT Glucose (07/12/2017 8:22 PM EST) athologist Signature POC Glucose 119 65 - 199 [facility] mg/dL [facility] Comment: Supplemental ranges: <140 mg/dL before meals <180 mg/dL all other times of the day Specimen Anatomical Collection Method Collection Time Receive d Time (Source) Location / / Volume Laterality Blood specimen 07/12/2017 8:22 PM 017 8:22 (specimen) EST PM EST Yuan Webber MD POINT OF CARE TEST ORDERABLE S Performing Organization Address City/State/ZIP Code Phon e Number [address] POCT Glucose (07/12/2017 4:02 PM EST) athologist Signature POC Glucose 114 65 - 199 [facility] mg/dL [facility] Comment: Supplemental ranges: <140 mg/dL before meals <180 mg/dL all other times of the day Specimen Anatomical Collection Method Collection Time Receive d Time (Source) Location / / Volume Laterality Blood specimen 07/12/2017 4:02 PM 017 4:02 (specimen) EST PM EST Yuan Webber MD POINT OF CARE TEST ORDERABLE S Performing Organization Address City/State/ZIP Code Phon e Number [address] POCT Glucose (07/12/2017 11:28 AM EST) athologist Signature POC Glucose 164 65 - 199 [facility] mg/dL [facility] Comment: Supplemental ranges: <140 mg/dL before meals <180 mg/dL all other times of the day Specimen Anatomical Collection Method Collection Time Receive d Time (Source) Location / / Volume Laterality Blood specimen 07/12/2017 11:28 7 (specimen) AM EST 11:28 AM EST Yuan Webber MD POINT OF CARE TEST ORDERABLE S Performing Organization Address City/State/ZIP Code Phon e Number [address] POCT Glucose (07/12/2017 7:34 AM EST) athologist Signature POC Glucose 109 65 - 199 [facility] mg/dL [facility] Comment: Supplemental ranges: <140 mg/dL before meals <180 mg/dL all other times of the day Specimen Anatomical Collection Method Collection Time Receive d Time (Source) Location / / Volume Laterality Blood specimen 07/12/2017 7:34 AM 017 7:34 (specimen) EST AM EST Yuan Webber MD POINT OF CARE TEST ORDERABLE S Performing Organization Address City/State/[place] [address] (ABNORMAL) Basic Metabolic Panel (non-fasting) (07/12/2017 4:11 AM EST) athologist Signature Glucose Lvl 92 65 - 199 [facility] mg/dL [facility] Comment: Diabetes: >=200 mg/dL plus symp toms BUN 31 (H) 10 - 20 mg/dL [facility] Creatinine 1.23 0.80 - 1.50 mg/dL [facility] Sodium 145 135 - 145 mmol/L [facility] Potassium Not Perf 3.5 - 5.0 mmol/L [facility] Comment: Duplicate order Please note: ??Patients with WBC >100,00 0 may have falsely elevated Potassium levels. ??For accurate Potassium quantif ication in these patients send serum separator tube (gold top) for subsequent determinations. ??Contact the Clinical Chemistry Laboratory if there are any qu estions. Chloride 106 98 - 107 mmol/L [facility] CO2 Not Perf 22 - 31 mmol/L [facility] Comment: Add-on request. Sample too old to perform test. Anion Gap Not Calculated 5 - 15 mmol/L [facility] Calcium 8.1 (L) 8.5 - 10.5 mg/dL [facility] Estimated GFR 58 (L) >=60 [facility] Comment: The reported eGFR should be multiplied b y 1.2 for patients. The MDRD is not an appropriate measure o f renal function for patients with body mass extremes or in patients with acute kidney failure. http://[employer])/DHnkdep http://[employer])/DHMCnkf Specimen Anatomical Collection Method Collection Time Receive d Time (Source) Location / / Volume Laterality Blood specimen 07/12/2017 4:11 AM 017 8:57 (specimen) EST AM EST Resulting Agency Comment Spec In Lab Makayla Katie QUINONES CHEMISTRY ORDERABLES Performing Organization Address City/State/[place] [address] (ABNORMAL) Prothrombin Time (07/12/2017 4:11 AM EST) P athologist Signature PT 15.4 (H) 11.8 - 14.0 [facility] LABORATORY INR 1.2 (H) 0.9 - 1.1 [facility] [...] Wilson STACIE HEMATOLOGY ORDERABLES Performing Organization Address City/[facility]/ZIP Code Phon e Number [address] Potassium (07/12/2017 4:11 AM EST) athologist Signature Potassium 3.8 3.5 - 5.[address] [facility] mmol/L [facility] Comment: Please note: ??Patients with WBC [...] Wilson STACIE CHEMISTRY ORDERABLES Performing Organization Address City/[facility]/[place] [address] POCT Glucose (07/12/2017 4:10 AM EST) athologist Signature POC Glucose 90 65 - [address] [facility] mg/dL [facility] Comment: Supplemental ranges: <140 mg/dL before meals <180 mg/dL all other times of the day Specimen Anatomical Collection Method Collection Time Receive d Time (Source) Location / / Volume Laterality Blood specimen 07/12/2017 4:10 AM 017 4:10 (specimen) EST AM EST Yuan Webber MD POINT OF CARE TEST ORDERABLE S Performing Organization Address City/State/[place] [address] POCT Glucose (07/11/2017 11:57 PM EST) athologist Signature POC Glucose 98 65 - 199 [facility]/dL [facility] Comment: Supplemental ranges: <140 mg/dL before meals <180 mg/dL all other times of the day Specimen Anatomical Collection Method Collection Time Receive d Time (Source) Location / / Volume Laterality Blood specimen 07/11/2017 11:57 7 (specimen) PM EST 11:57 PM EST Yuan Webber MD POINT OF CARE TEST ORDERABLE S Performing Organization Address City/[facility]/[place] [address] POCT Glucose (07/11/2017 8:32 PM EST) athologist Signature POC Glucose 146 65 - 199 [facility] mg/dL [facility] Comment: Supplemental ranges: <140 mg/dL before meals <180 mg/dL all other times of the day Specimen Anatomical Collection Method Collection Time Receive d Time (Source) Location / / Volume Laterality Blood specimen 07/11/2017 8:32 PM 017 8:32 (specimen) EST PM EST Yuan Webber MD POINT OF CARE TEST ORDERABLE S Performing Organization Address City/State/[place] [address] XR Chest PA & [...] e xtubated, left chest tube removed, and Charlotte-Suzi catheter removed since the study. Atelectasis at [...] e xtubated, left chest tube removed, and Charlotte-Suzi catheter removed since the study. Atelectasis at [...] POC Glucose 223 (H) 65 - 199 [facility] Comment: Supplemental ranges: <140 mg/dL before meals <180 mg/dL all other times of the day Specimen Anatomical Collection Method Collection Time Receive d Time (Source) Location / / Volume Laterality Blood specimen 07/11/2017 4:05 PM 017 4:05 (specimen) EST PM EST Yuan Webber MD POINT OF CARE TEST ORDERABLE S Performing Organization Address City/State/[place] [address] POCT Glucose (07/11/2017 11:55 AM EST) athologist Signature POC Glucose 176 65 - 199 [facility] mg/dL [facility] Comment: Supplemental ranges: <140 mg/dL before meals <180 mg/dL all other times of the day Specimen Anatomical Collection Method Collection Time Receive d Time (Source) Location / / Volume Laterality Blood specimen 07/11/2017 11:55 7 (specimen) AM EST 11:55 AM EST Yuan Webber MD POINT OF CARE TEST ORDERABLE S Performing Organization Address City/[facility]/ZIP Code Phon e Number [address] POCT Glucose (07/11/2017 7:53 AM EST) P athologist Signature POC Glucose 189 65 - 199 [place] mg/dL [facility] Comment: Supplemental ranges: <140 mg/dL before meals <180 mg/dL all other times of the day Specimen Anatomical Collection Method Collection Time Receive d Time (Source) Location / / Volume Laterality Blood specimen 07/11/2017 7:53 AM 017 7:53 (specimen) EST AM EST Yuan Webber MD POINT OF CARE TEST ORDERABLE S Performing Organization Address City/[facility]/ZIP Code Phon e Number [address] POCT Glucose (07/11/2017 4:22 AM EST) P athologist Signature POC Glucose 151 65 - 199 [place] mg/dL [facility] Comment: Supplemental ranges: <140 mg/dL before meals <180 mg/dL all other times of the day Specimen Anatomical Collection Method Collection Time Receive d Time (Source) Location / / Volume Laterality Blood specimen 07/11/2017 4:22 AM 017 4:22 (specimen) EST AM EST Yuan Webber MD POINT OF CARE TEST ORDERABLE S Performing Organization Address City/State/ZIP Code Phon e Number [address] [address] Potassium (07/11/2017 2:20 AM EST) P athologist Signature Potassium 4.5 3.5 - 5.0 [facility] mmol/L [facility] LABORATORY Comment: Please note: ??Patients with WBC [...] Resulting Agency Comment Spec In Lab Yuan Wbeber MD CHEMISTRY ORDERABLES Performing Organization Address City/State/ZIP Code Phon e Number [address] POCT Glucose (07/11/2017 12:17 AM EST) athologist Signature POC Glucose 162 65 - 199 [facility] LABORATORY Comment: Supplemental ranges: <140 mg/dL before meals <180 mg/dL all other times of the day Specimen Anatomical Collection Method Collection Time Receive d Time (Source) Location / / Volume Laterality Blood specimen 07/11/2017 12:17 7 (specimen) AM EST 12:17 AM EST Yuan Webber MD POINT OF CARE TEST ORDERABLE S Performing Organization Address City/[facility]/[place] [address] POCT Glucose (07/10/2017 8:47 PM EST) athologist Signature POC Glucose 191 65 - 199 [facility] mg/dL [facility] LABORATORY Comment: Supplemental ranges: <140 mg/dL before meals <180 mg/dL all other times of the day Specimen Anatomical Collection Method Collection Time Receive d Time (Source) Location / / Volume Laterality Blood specimen 07/10/2017 8:47 PM 017 8:47 (specimen) EST PM EST Yuan Webber MD POINT OF CARE TEST ORDERABLE S Performing Organization Address City/[facility]/[place] [address] POCT Glucose (07/10/2017 4:06 PM EST) athologist Signature POC Glucose 131 65 - 199 [place] mg/dL [facility] LABORATORY Comment: Supplemental ranges: <140 mg/dL before meals <180 mg/dL all other times of the day Specimen Anatomical Collection Method Collection Time Receive d Time (Source) Location / / Volume Laterality Blood specimen 07/10/2017 4:06 PM 017 4:06 (specimen) EST PM EST Yuan Webber MD POINT OF CARE TEST ORDERABLE S Performing Organization Address City/State/[place] [address] POCT Glucose (07/10/2017 3:08 PM EST) athologist Signature POC Glucose 151 65 - 199 [place] mg/dL [facility] LABORATORY Comment: Supplemental ranges: <140 mg/dL before meals <180 mg/dL all other times of the day Specimen Anatomical Collection Method Collection Time Receive d Time (Source) Location / / Volume Laterality Blood specimen 07/10/2017 3:08 PM 017 3:08 (specimen) EST PM EST Yuan Webber MD POINT OF CARE TEST ORDERABLE S Performing Organization Address City/State/[place] [address] POCT Glucose (07/10/2017 2:25 PM EST) athologist Signature POC Glucose 146 65 - 199 [place] mg/dL [facility] LABORATORY Comment: Supplemental ranges: <140 mg/dL before meals <180 mg/dL all other times of the day Specimen Anatomical Collection Method Collection Time Receive d Time (Source) Location / / Volume Laterality Blood specimen 07/10/2017 2:25 PM 017 2:25 (specimen) EST PM EST Yuan Webber MD POINT OF CARE TEST ORDERABLE S Performing Organization Address City/State/ZIP Code Phon e Number [address] POCT Glucose (07/10/2017 1:23 PM EST) athologist Signature POC Glucose 166 65 - 199 [place] mg/dL [facility] LABORATORY Comment: Supplemental ranges: <140 mg/dL before meals <180 mg/dL all other times of the day Specimen Anatomical Collection Method Collection Time Receive d Time (Source) Location / / Volume Laterality Blood specimen 07/10/2017 1:23 PM 017 1:23 (specimen) EST PM EST Yuan Webber MD POINT OF CARE TEST ORDERABLE S Performing Organization Address City/State/[place] [address] POCT Glucose (07/10/2017 11:52 AM EST) P athologist Signature POC Glucose 157 65 - 199 [facility] mg/dL [facility] LABORATORY Comment: Supplemental ranges: <140 mg/dL before meals <180 mg/dL all other times of the day Specimen Anatomical Collection Method Collection Time Receive d Time (Source) Location / / Volume Laterality Blood specimen 07/10/2017 11:52 7 (specimen) AM EST 11:52 AM EST Yuan Webber MD POINT OF CARE TEST ORDERABLE S Performing Organization Address City/State/ZIP Code Phon e Number [address] POCT Glucose (07/10/2017 11:01 AM EST) P athologist Signature POC Glucose 158 65 - 199 [facility] mg/dL [facility] LABORATORY Comment: Supplemental ranges: <140 mg/dL before meals <180 mg/dL all other times of the day Specimen Anatomical Collection Method Collection Time Receive d Time (Source) Location / / Volume Laterality Blood specimen 07/10/2017 11:01 7 (specimen) AM EST 11:01 AM EST Yuan Webber MD POINT OF CARE TEST ORDERABLE S Performing Organization Address City/State/ZIP Code Phon e Number [address] POCT Glucose (07/10/2017 9:54 AM EST) P athologist Signature POC Glucose 160 65 - 199 [place] mg/dL [facility] LABORATORY Comment: Supplemental ranges: <140 mg/dL before meals <180 mg/dL all other times of the day Specimen Anatomical Collection Method Collection Time Receive d Time (Source) Location / / Volume Laterality Blood specimen 07/10/2017 9:54 AM 017 9:54 (specimen) EST AM EST Yuan Webber MD POINT OF CARE TEST ORDERABLE S Performing Organization Address City/State/ZIP Code Phon e Number [address] POCT Glucose (07/10/2017 8:58 AM EST) athologist Signature POC Glucose 183 65 - 199 [place] mg/dL [facility] LABORATORY Comment: Supplemental ranges: <140 mg/dL before meals <180 mg/dL all other times of the day Specimen Anatomical Collection Method Collection Time Receive d Time (Source) Location / / Volume Laterality Blood specimen 07/10/2017 8:58 AM 017 8:58 (specimen) EST AM EST Yuan Webber MD POINT OF CARE TEST ORDERABLE S Performing Organization Address City/State/ZIP Code Phon e Number [address] POCT Glucose (07/10/2017 8:01 AM EST) athologist Signature POC Glucose 173 65 - 199 [facility] mg/dL [facility] LABORATORY Comment: Supplemental ranges: <140 mg/dL before meals <180 mg/dL all other times of the day Specimen Anatomical Collection Method Collection Time Receive d Time (Source) Location / / Volume Laterality Blood specimen 07/10/2017 8:01 AM 017 8:01 (specimen) EST AM EST Yuan Webber MD POINT OF CARE TEST ORDERABLE S Performing Organization Address City/State/ZIP Code Phon e Number [address] POCT Glucose (07/10/2017 7:05 AM EST) athologist Signature POC Glucose 166 65 - 199 [facility] mg/dL [facility] LABORATORY Comment: Supplemental ranges: <140 mg/dL before meals <180 mg/dL all other times of the day Specimen Anatomical Collection Method Collection Time Receive d Time (Source) Location / / Volume Laterality Blood specimen 07/10/2017 7:05 AM 017 7:05 (specimen) EST AM EST Yuan Webber MD POINT OF CARE TEST ORDERABLE S Performing Organization Address City/State/[place] [address] POCT Glucose (07/10/2017 6:00 AM EST) P athologist Signature POC Glucose 162 65 - 199 [facility] LABORATORY Comment: Supplemental ranges: <140 mg/dL before meals <180 mg/dL all other times of the day Specimen Anatomical Collection Method Collection Time Receive d Time (Source) Location / / Volume Laterality Blood specimen 07/10/2017 6:00 AM 017 6:00 (specimen) EST AM EST Yuan Webber MD POINT OF CARE TEST ORDERABLE S Performing Organization Address City/State/[place] [address] (ABNORMAL) Differential, Automated (07/10/2017 4:28 AM EST) Patholo gist Method Time Signature Neutrophils % 87.9 % [facility] LABORATORY Neutr Abs (ANC) 10.70 (H) 1.70 - [facility] 6.10 [facility] x10(3)/[facility] L LABORATORY Lymphocytes % 3.9 % [facility] LABORATORY Lymphocytes Abs 0.5 (L) 0.9 - 3.[address] [facility] x10(3)/[facility] LABORATORY Monocytes % 7.0 % [facility] LABORATORY Monocyte Abs 0.8 0.3 - 0.[address] [facility] x10(3)/[facility] LABORATORY Eosinophils % 0.3 % [facility] LABORATORY Eosinophils Abs 0.0 0.0 - 0.[address] [facility] x10(3)/[facility] LABORATORY Basophils % 0.2 % [facility] LABORATORY Basophils Abs 0.0 0.0 - 0.[address] [facility] x10(3)/[facility] LABORATORY Immature Gran % 0.70 % [...] Gran Abs 0.08 (H) 0.00 - 0.04 x10(3)/[facility] LABORATORY Specimen Anatomical Collection Method Collection Time Receive d Time (Source) Location / / Volume Laterality Blood specimen 07/10/2017 4:28 AM 017 4:36 (specimen) EST AM EST Resulting Agency Comment Spec In Lab Yuan Webber MD HEMATOLOGY ORDERABLES Performing Organization Address City/State/ZIP Code Phon e Number [place] [id number] (ABNORMAL) Hemogram (07/10/2017 4:28 AM EST) Analysis Performed At Patho logist Time Signature WBC 12.2 (H) 4.0 - 9.[address] [facility] x10(3)/[facility] LABORATORY RBC 3.31 (L) 4.58 - [facility] 5.54 [facility] x10(6)/[facility] LABORATORY Hemoglobin 9.8 (L) 13.7 - [facility] 16.5 gm/dL [facility] LABORATORY Hematocrit 30.0 (L) 40.5 - [facility] 48.5 % [facility] LABORATORY MCV 90.6 82.9 - [facility] 93.1 [facility] LABORATORY MCH 29.6 27.5 - [facility] 32.1 pg [facility] LABORATORY MCHC 32.7 32.0 - [facility] 35.7 gm/dL [facility] LABORATORY Platelets 135 (L) 145 - [address] [facility] x10(3)/[facility] RDWSD 50.8 (H) 36.0 - [facility] 45.0 [facility] RDWCV 15.4 (H) 11.4 - [facility] 13.8 % [facility] LABORATORY MPV 10.0 7.6 - 12.9 [facility] LABORATORY nRBC % Auto 0.0 % [facility] LABORATORY nRBC Abs Auto 0.000 0.000 - [facility] 0.000 [facility] x10(3)/[facility] LABORATORY Specimen Anatomical Collection Method Collection Time Receive d Time (Source) Location / / Volume Laterality Blood specimen 07/10/2017 4:28 AM 017 4:36 (specimen) EST AM EST Resulting Agency Comment Spec In Lab Yuan Webber MD HEMATOLOGY ORDERABLES Performing Organization Address City/State/[place] [address] (ABNORMAL) Basic Metabolic Panel (non-fasting) (07/10/2017 4:28 AM EST) P athologist Signature Glucose Lvl 178 65 - [address] [facility] mg/dL [facility] LABORATORY Comment: Diabetes: >=200 mg/dL plus symp toms BUN 20 10 - 20 mg/dL [facility] LABORATORY Creatinine 1.19 0.80 - 1.50 mg/dL [facility] LABORATORY Sodium 143 135 - 145 mmol/L [facility] LABORATORY Potassium 4.6 3.5 - 5.0 mmol/L [facility] LABORATORY Comment: Please note: ??Patients with WBC >100,00 0 may have falsely elevated Potassium levels. ??For accurate Potassium quantif ication in these patients send serum separator tube (gold top) for subsequent determinations. ??Contact the Clinical Chemistry Laboratory if there are any qu estions. Chloride 107 98 - 107 mmol/L [facility] LABORATORY CO2 21 (L) 22 - 31 mmol/L [facility] LABORATORY Anion Gap 15 5 - 15 mmol/L [facility] LABORATORY Calcium 7.4 (L) 8.5 - 10.5 mg/dL [facility] LABORATORY Estimated GFR 60 >=60 [facility] LABORATORY Comment: The reported eGFR should be multiplied b y 1.2 for patients. The MDRD is not an appropriate measure o f renal function for patients with body mass extremes or in patients with acute kidney failure. http://Devtap.OrderAhead/DHnkdep http://Devtap.OrderAhead/DHMCnkf Specimen Anatomical Collection Method Collection Time Receive d Time (Source) Location / / Volume Laterality Blood specimen 07/10/2017 4:28 AM 017 4:36 (specimen) EST AM EST Resulting Agency Comment Spec In Lab Yuan Webber MD CHEMISTRY ORDERABLES Performing Organization Address City/State/ZIP Code Phon e Number [address] POCT Glucose (07/10/2017 4:26 AM EST) athologist Signature POC Glucose 176 65 - 199 [facility] mg/dL [facility] LABORATORY Comment: Supplemental ranges: <140 mg/dL before meals <180 mg/dL all other times of the day Specimen Anatomical Collection Method Collection Time Receive d Time (Source) Location / / Volume Laterality Blood specimen 07/10/2017 4:26 AM 017 4:26 (specimen) EST AM EST Yuan Webber MD POINT OF CARE TEST ORDERABLE S Performing Organization Address City/[facility]/[place] [address] (ABNORMAL) POCT Glucose (07/10/2017 3:06 AM EST) athologist Signature POC Glucose 204 (H) 65 - 199 [facility] mg/dL [facility] LABORATORY Comment: Supplemental ranges: <140 mg/dL before meals <180 mg/dL all other times of the day Specimen Anatomical Collection Method Collection Time Receive d Time (Source) Location / / Volume Laterality Blood specimen 07/10/2017 3:06 AM 017 3:06 (specimen) EST AM EST Yuan Webber MD POINT OF CARE TEST ORDERABLE S Performing Organization Address City/[facility]/[place] [address] (ABNORMAL) POCT Glucose (07/10/2017 2:10 AM EST) athologist Signature POC Glucose 203 (H) 65 - 199 [place] mg/dL [facility] LABORATORY Comment: Supplemental ranges: <140 mg/dL before meals <180 mg/dL all other times of the day Specimen Anatomical Collection Method Collection Time Receive d Time (Source) Location / / Volume Laterality Blood specimen 07/10/2017 2:10 AM 017 2:10 (specimen) EST AM EST Yuan Webber MD POINT OF CARE TEST ORDERABLE S Performing Organization Address City/State/ZIP Code Phon e Number [address] POCT Glucose (07/10/2017 1:09 AM EST) athologist Signature POC Glucose 196 65 - 199 [place] mg/dL [facility] LABORATORY Comment: Supplemental ranges: <140 mg/dL before meals <180 mg/dL all other times of the day Specimen Anatomical Collection Method Collection Time Receive d Time (Source) Location / / Volume Laterality Blood specimen 07/10/2017 1:09 AM 017 1:09 (specimen) EST AM EST Yuan Webber MD POINT OF CARE TEST ORDERABLE S Performing Organization Address City/State/[place] [address] POCT Glucose (07/10/2017 12:10 AM EST) athologist Signature POC Glucose 173 65 - 199 [place] mg/dL [facility] LABORATORY Comment: Supplemental ranges: <140 mg/dL before meals <180 mg/dL all other times of the day Specimen Anatomical Collection Method Collection Time Receive d Time (Source) Location / / Volume Laterality Blood specimen 07/10/2017 12:10 7 (specimen) AM EST 12:10 AM EST Yuan Webber MD POINT OF CARE TEST ORDERABLE S Performing Organization Address City/State/ZIP Code Phon e Number [address] POCT Glucose (07/09/2017 11:01 PM EST) athologist Signature POC Glucose 140 65 - 199 [place] mg/dL [facility] LABORATORY Comment: Supplemental ranges: <140 mg/dL before meals <180 mg/dL all other times of the day Specimen Anatomical Collection Method Collection Time Receive d Time (Source) Location / / Volume Laterality Blood specimen 07/09/2017 11:01 7 (specimen) PM EST 11:01 PM EST Yuan Webber MD POINT OF CARE TEST ORDERABLE S Performing Organization Address City/State/[place] [address] POCT Glucose (07/09/2017 10:05 PM EST) athologist Signature POC Glucose 144 65 - 199 [facility] mg/dL [facility] LABORATORY Comment: Supplemental ranges: <140 mg/dL before meals <180 mg/dL all other times of the day Specimen Anatomical Collection Method Collection Time Receive d Time (Source) Location / / Volume Laterality Blood specimen 07/09/2017 10:05 7 (specimen) PM EST 10:05 PM EST Yuan Webber MD POINT OF CARE TEST ORDERABLE S Performing Organization Address City/State/ZIP Code Phon e Number [address] POCT Glucose (07/09/2017 9:31 PM EST) athologist Signature POC Glucose 121 65 - 199 [place] mg/dL [facility] LABORATORY Comment: Supplemental ranges: <140 mg/dL before meals <180 mg/dL all other times of the day Specimen Anatomical Collection Method Collection Time Receive d Time (Source) Location / / Volume Laterality Blood specimen 07/09/2017 9:31 PM 017 9:31 (specimen) EST PM EST Yuan Webber MD POINT OF CARE TEST ORDERABLE S Performing Organization Address City/State/ZIP Code Phon e Number [address] POCT Glucose (07/09/2017 9:03 PM EST) athologist Signature POC Glucose 98 65 - 199 [place] mg/dL [facility] LABORATORY Comment: Supplemental ranges: <140 mg/dL before meals <180 mg/dL all other times of the day Specimen Anatomical Collection Method Collection Time Receive d Time (Source) Location / / Volume Laterality Blood specimen 07/09/2017 9:03 PM 017 9:03 (specimen) EST PM EST Yuan Webber MD POINT OF CARE TEST ORDERABLE S Performing Organization Address City/State/ZIP Code Phon e Number [address] POCT Glucose (07/09/2017 8:09 PM EST) athologist Signature POC Glucose 117 65 - 199 [facility]/dL [facility] LABORATORY Comment: Supplemental ranges: <140 mg/dL before meals <180 mg/dL all other times of the day Specimen Anatomical Collection Method Collection Time Receive d Time (Source) Location / / Volume Laterality Blood specimen 07/09/2017 8:09 PM 017 8:09 (specimen) EST PM EST Yuan Webber MD POINT OF CARE TEST ORDERABLE S Performing Organization Address City/State/ZIP Code Phon e Number [address] POCT Glucose (07/09/2017 5:40 PM EST) athologist Signature POC Glucose 155 65 - 199 [facility] mg/dL [facility] LABORATORY Comment: Supplemental ranges: <140 mg/dL before meals <180 mg/dL all other times of the day Specimen Anatomical Collection Method Collection Time Receive d Time (Source) Location / / Volume Laterality Blood specimen 07/09/2017 5:40 PM 017 5:40 (specimen) EST PM EST Yuan Webber MD POINT OF CARE TEST ORDERABLE S Performing Organization Address City/State/ZIP Code Phon e Number [address] POCT Glucose (07/09/2017 4:24 PM EST) athologist Signature POC Glucose 164 65 - 199 [facility] mg/dL [facility] LABORATORY Comment: Supplemental ranges: <140 mg/dL before meals <180 mg/dL all other times of the day Specimen Anatomical Collection Method Collection Time Receive d Time (Source) Location / / Volume Laterality Blood specimen 07/09/2017 4:24 PM 017 4:24 (specimen) EST PM EST Yuan Webber MD POINT OF CARE TEST ORDERABLE S Performing Organization Address City/State/[place] [address] POCT Glucose (07/09/2017 3:19 PM EST) athologist Signature POC Glucose 166 65 - 199 [place] mg/dL [facility] LABORATORY Comment: Supplemental ranges: <140 mg/dL before meals <180 mg/dL all other times of the day Specimen Anatomical Collection Method Collection Time Receive d Time (Source) Location / / Volume Laterality Blood specimen 07/09/2017 3:19 PM 017 3:19 (specimen) EST PM EST Yuan Webber MD POINT OF CARE TEST ORDERABLE S Performing Organization Address City/State/[place] [address] POCT Glucose (07/09/2017 2:26 PM EST) athologist Signature POC Glucose 179 65 - 199 [place] mg/dL [facility] LABORATORY Comment: Supplemental ranges: <140 mg/dL before meals <180 mg/dL all other times of the day Specimen Anatomical Collection Method Collection Time Receive d Time (Source) Location / / Volume Laterality Blood specimen 07/09/2017 2:26 PM 017 2:26 (specimen) EST PM EST Yuan Webber MD POINT OF CARE TEST ORDERABLE S Performing Organization Address City/State/[place] [address] (ABNORMAL) POCT Glucose (07/09/2017 1:29 PM EST) athologist Signature POC Glucose 210 (H) 65 - 199 [place] mg/dL [facility] LABORATORY Comment: Supplemental ranges: <140 mg/dL before meals <180 mg/dL all other times of the day Specimen Anatomical Collection Method Collection Time Receive d Time (Source) Location / / Volume Laterality Blood specimen 07/09/2017 1:29 PM 017 1:29 (specimen) EST PM EST Yuan Webber MD POINT OF CARE TEST ORDERABLE S Performing Organization Address City/State/ZIP Code Phon e Number [address] POCT Glucose (07/09/2017 12:20 PM EST) P athologist Signature POC Glucose 172 65 - 199 [facility]/dL [facility] LABORATORY Comment: Supplemental ranges: <140 mg/dL before meals <180 mg/dL all other times of the day Specimen Anatomical Collection Method Collection Time Receive d Time (Source) Location / / Volume Laterality Blood specimen 07/09/2017 12:20 7 (specimen) PM EST 12:20 PM EST Yuan Webber MD POINT OF CARE TEST ORDERABLE S Performing Organization Address City/State/[place] [address] POCT Glucose (07/09/2017 11:24 AM EST) athologist Signature POC Glucose 156 65 - 199 [facility] mg/dL [facility] LAB[facility]ORY Comment: Supplemental ranges: <140 mg/dL before meals <180 mg/dL all other times of the day Specimen Anatomical Collection Method Collection Time Receive d Time (Source) Location / / Volume Laterality Blood specimen 07/09/2017 11:24 7 (specimen) AM EST 11:24 AM EST Yuan Webber MD POINT OF CARE TEST ORDERABLE S Performing Organization Address City/State/ZIP Code Phon e Number [address] POCT Glucose (07/09/2017 11:11 AM EST) P athologist Signature POC Glucose 172 65 - 199 [facility] mg/dL [facility] LABORATORY Comment: Supplemental ranges: <140 mg/dL before meals <180 mg/dL all other times of the day Specimen Anatomical Collection Method Collection Time Receive d Time (Source) Location / / Volume Laterality Blood specimen 07/09/2017 11:11 7 (specimen) AM EST 11:11 AM EST Yuan Webber MD POINT OF CARE TEST ORDERABLE S Performing Organization Address City/State/ZIP Code Phon e Number [address] POCT Glucose (07/09/2017 10:08 AM EST) P athologist Signature POC Glucose 176 65 - 199 [place] mg/dL [facility] LABORATORY Comment: Supplemental ranges: <140 mg/dL before meals <180 mg/dL all other times of the day Specimen Anatomical Collection Method Collection Time Receive d Time (Source) Location / / Volume Laterality Blood specimen 07/09/2017 10:08 7 (specimen) AM EST 10:08 AM EST Yuan Webber MD POINT OF CARE TEST ORDERABLE S Performing Organization Address City/State/[place] [address] POCT Glucose (07/09/2017 8:02 AM EST) P athologist Signature POC Glucose 178 65 - 199 KATALINA ZHAORYAN mg/dL [facility] Comment: Supplemental ranges: <140 mg/dL before meals <180 mg/dL all other times of the day Specimen Anatomical Collection Method Collection Time Receive d Time (Source) Location / / Volume Laterality Blood specimen 07/09/2017 8:02 AM 017 8:02 (specimen) EST AM EST Yuan Webber MD POINT OF CARE TEST ORDERABLE S Performing Organization Address City/State/[place] [address] (ABNORMAL) BLOOD GAS 2 ARTERIAL (07/09/2017 5:37 AM EST) Analysis Performed At Patho logist Time Signature pH Art 7.36 7.35 - [facility] 7.45 [facility] pCO2 Art 38 35 - [address] [facility] mmHg [facility] pO2 Art 79 (L) 85 - 104 [facility] LABORATORY HCO3 Art 20.9 20.0 - [facility] 26.0 [facility] mmol/L [facility] BE Art -4.6 (L) -3.0 - 3.[address] [facility] mmol/L [facility] Hgb Blood Gas 10.5 (L) 13.7 - [facility] 16.5 gm/dL [facility] O2HB Art 93.8 (L) 94.0 - [facility] 97.0 % [facility] COHB Art 0.3 % [facility] Comment: Nonsmokers: 0.5-1.5% COHB Smokers: Variable, but usually less than 10% Toxic: 20-30% COHB Lethal: Greater than 60% COHB METHB Art 0.6 <=1.5 % [facility] Na Whole Blood 141 135 - 145 mmol/L [facility] K Whole Blood 4.5 3.5 - 5.0 mmol/L [facility] Comment: Please note: Patients with WBC >100,000 may have falsely elevated Potassium levels. Contact the Clinical Chemistry L aboratory if there are any questions. ICa Whole Blood 1.01 (L) 1.15 - 1.33 mmol/L [facility] Comment: Note: ??Total bilirubin higher than 20 m g/dL may lead to falsely low ionized calcium. CL Whole Blood 113 (H) 98 - 107 mmol/L [facility] Gluc Whole Bld 175 65 - 199 mg/dL [facility] Comment: Diabetes: >=200 mg/dL plus symp toms. Lactate WB 1.0 0.5 - 2.2 mmol/L [facility] FIO2 Art 40 % [facility] PF Ratio Art 198 [facility] Specimen Anatomical Collection Method Collection Time Receive d Time (Source) Location / / Volume Laterality Blood specimen 07/09/2017 5:37 AM 017 5:37 (specimen) EST AM EST Yuan Webber MD CHEMISTRY ORDERABLES Performing Organization Address City/State/[place] [address] POCT Glucose (07/09/2017 3:27 AM EST) athologist Signature POC Glucose 192 65 - 199 [facility]/dL [facility] Comment: Supplemental ranges: <140 mg/dL before meals <180 mg/dL all other times of the day Specimen Anatomical Collection Method Collection Time Receive d Time (Source) Location / / Volume Laterality Blood specimen 07/09/2017 3:27 AM 017 3:27 (specimen) EST AM EST Yuan Webber MD POINT OF CARE TEST ORDERABLE S Performing Organization Address City/State/[place] [address] (ABNORMAL) Basic Metabolic Panel (non-fasting) (07/09/2017 2:30 AM EST) athologist Signature Glucose Lvl 179 65 - [address] [facility] mg/dL [facility] Comment: Diabetes: >=200 mg/dL plus symp toms BUN 17 10 - 20 mg/dL [facility] Creatinine 1.34 0.80 - 1.50 mg/dL [facility] Sodium 144 135 - 145 mmol/L [facility] Potassium Not Perf 3.5 - 5.0 mmol/L [facility] Comment: Duplicate order Please note: ??Patients with WBC >100,00 0 may have falsely elevated Potassium levels. ??For accurate Potassium quantif ication in these patients send serum separator tube (gold top) for subsequent determinations. ??Contact the Clinical Chemistry Laboratory if there are any qu estions. Chloride 111 (H) 98 - 107 mmol/L [facility] CO2 21 (L) 22 - 31 mmol/L [facility] Anion Gap 12 5 - 15 mmol/L [facility] Calcium 7.1 (L) 8.5 - 10.5 mg/dL [facility] Comment: result rechecked-[id number] Estimated GFR 53 (L) >=60 [facility] Comment: The reported eGFR should be multiplied b y 1.2 for patients. The MDRD is not an appropriate measure o f renal function for patients with body mass extremes or in patients with acute kidney failure. http://Devtap.OrderAhead/DHnkdep http://[employer])/DHMCnkf Specimen Anatomical Collection Method Collection Time Receive d Time (Source) Location / / Volume Laterality Blood specimen Venous Draw / 07/09/2017 2:30 AM 2016 2:42 (specimen) Unknown EST AM EST Resulting Agency Comment Spec In Lab Yuan Webber MD CHEMISTRY ORDERABLES Performing Organization Address City/[facility] [place] [address] (ABNORMAL) Potassium (07/09/2017 2:30 AM EST) P athologist Signature Potassium 5.1 (H) 3.5 - 5.0 [facility]/L [facility] Comment: Please note: ??Patients with WBC [...] Webber MD CHEMISTRY ORDERABLES Performing Organization Address City/[facility] [place] [address] (ABNORMAL) Hemogram (07/09/2017 2:30 AM EST) Analysis Performed At Patho logist Time Signature WBC 12.5 (H) 4.0 - 9.5 KATALINA RYAN x10(3)/[facility] LABORATORY RBC 3.38 (L) 4.58 - KATALINA RYAN 5.54 [facility] x10(6)/[facility] LABORATORY Hemoglobin 10.1 (L) 13.7 - KATALINA RYAN 16.5 gm/dL [facility] Hematocrit 30.3 (L) 40.5 - KATALINA RYAN 48.5 % [facility] MCV 89.6 82.9 - KATALINA DAVIS 93.1 [facility] LABORATORY MCH 29.9 27.5 - KATALINA OLIVASCK 32.1 pg [facility] MCHC 33.3 32.0 - KATALINA OLIVASCK 35.7 gm/dL [facility] Platelets 127 (L) 145 - [address] [facility] x10(3)/[facility] LABORATORY RDWSD 49.3 (H) 36.0 - KATALINA DAVIS 45.0 [facility] LABORATORY RDWCV 15.2 (H) 11.4 - KATALINA DAVIS 13.8 % [facility] MPV 9.9 7.6 - 12.9 KATALINA DAVIS [facility] LABORATORY nRBC % Auto 0.0 % [facility] nRBC Abs Auto 0.000 0.000 - KATALINA ZHAORYAN 0.000 [facility] x10(3)/[facility] LABORATORY Specimen Anatomical Collection Method Collection Time Receive d Time (Source) Location / / Volume Laterality Blood specimen 07/09/2017 2:30 AM 017 2:41 (specimen) EST AM EST Resulting Agency Comment Spec In Lab Yuan Webber MD HEMATOLOGY ORDERABLES Performing Organization Address City/[facility]/ZIP Code Phon e Number [address] POCT Glucose (07/09/2017 2:10 AM EST) athologist Signature POC Glucose 169 65 - 199 [facility] Comment: Supplemental ranges: <140 mg/dL before meals <180 mg/dL all other times of the day Specimen Anatomical Collection Method Collection Time Receive d Time (Source) Location / / Volume Laterality Blood specimen 07/09/2017 2:10 AM 017 2:10 (specimen) EST AM EST Yuan Webber MD POINT OF CARE TEST ORDERABLE S Performing Organization Address City/[facility]/ZIP Code Phon e Number [address] POCT Glucose (07/09/2017 1:01 AM EST) athologist Signature POC Glucose 173 65 - 199 KATALINA RYAN mg/dL [facility] Comment: Supplemental ranges: <140 mg/dL before meals <180 mg/dL all other times of the day Specimen Anatomical Collection Method Collection Time Receive d Time (Source) Location / / Volume Laterality Blood specimen 07/09/2017 1:01 AM 017 1:01 (specimen) EST AM EST Yuan Webber MD POINT OF CARE TEST ORDERABLE S Performing Organization Address City/[facility]/[place] [address] Blood culture (07/09/2017 12:40 AM EST) Patholo gist Method Time Signature Blood Culture No growth KATALINA DAVIS at 5 days. [facility] Specimen Anatomical Collection Method Collection Time Receive d Time (Source) Location / / Volume Laterality Blood specimen STRUCTURE OF RIGHT 07/09/2017 12:40 3:58 (specimen) UPPER LIMB / AM EST AM EST Unknown Resulting Agency Comment Spec In Lab Yuan Webber MD MICROBIOLOGY - BLOOD ORDERAB LES Performing Organization Address City/[facility]/[place] [address] Blood culture (07/09/2017 12:30 AM EST) Patholo gist Method Time Signature Blood Culture No growth KATALINA DAVIS at 5 days. [facility] Specimen Anatomical Collection Method Collection Time Receive d Time (Source) Location / / Volume Laterality Blood specimen STRUCTURE OF LEFT 07/09/2017 12:30 1211/2016 3:59 (specimen) UPPER LIMB / AM EST AM EST Unknown Resulting Agency Comment Spec In Lab Yuan Webber MD MICROBIOLOGY - BLOOD ORDERAB LES Performing Organization Address City/[facility]/[place] [address] (ABNORMAL) Urinalysis Microscopic Exam (07/09/2017 12:05 AM EST) Analysis Performed At Patho logist Time Signature RBC UA 32 (H) 0 - 3 /HPF [facility] WBC UA 5 (H) 0 - 3 /HPF [facility] Squam Epith UA <1 <=4 /HPF [facility] Hyaline Cast 17 (H) 0 - 2 /LPF [facility] Gran Cast UA 1 (H) <=0 /LPF [facility] Uric Ac Bianca Rare (A) None /HPF [facility] Specimen (Source) Anatomical Collection Method Collection Time Re ceived Time Location / / Volume Laterality Urine specimen 07/09/2017 12:05 7 obtained via AM EST 12:39 AM EST indwelling urinary catheter (specimen) Resulting Agency Comment Spec In Lab Yuan Webber MD URINE ORDERABLES Performing Organization Address City/State/[place] [address] (ABNORMAL) Urinalysis with reflex Culture (07/09/2017 12:05 AM EST) [facility] gist Method Time Signature Glucose UA Negative Negative [facility] mg/dL [facility] Protein UA 30 (A) Negative [facility] mg/dL [facility] Bilirubin UA Negative Negative [facility] mg/dL [facility] Comment: Clinical correlation required for positi ve Urine Bilirubin results as false positive may occur with some drugs and d rug related products. If a false positive is suspected a serum total bili yeager should be considered if clinically indicated. Urobilinogen UA Normal Normal mg/dL [facility] pH UA 5.0 5.0 - 8.0 [facility] Blood UA Moderate (A) Negative mg/dL [facility] Ketones UA Negative Negative mg/dL [facility] Nitrite UA Negative Negative [facility] Leukocytes UA Negative Negative [facility] LABORATORY Appearance UA Hazy (A) Clear [facility] Spec [place] UA 1.025 1.002 - 1.030 [facility] Color UA Yellow Yellow [facility] Culture Reflexed No [facility] Specimen (Source) Anatomical Collection Method Collection Time Re ceived Time Location / / Volume Laterality Urine specimen 07/09/2017 12:05 7 obtained via AM EST 12:39 AM EST indwelling urinary catheter (specimen) Resulting Agency Comment Spec In Lab Yuan Webber MD URINE ORDERABLES Performing Organization Address City/[facility]/ZIP Code Phon e Number [address] POCT Glucose (07/08/2017 11:01 PM EST) P athologist Signature POC Glucose 191 65 - 199 [facility] Comment: Supplemental ranges: <140 mg/dL before meals <180 mg/dL all other times of the day Specimen Anatomical Collection Method Collection Time Receive d Time (Source) Location / / Volume Laterality Blood specimen 07/08/2017 11:01 7 (specimen) PM EST 11:01 PM EST Yuan Webber MD POINT OF CARE TEST ORDERABLE S Performing Organization Address City/[facility]/[place] [address] POCT Glucose (07/08/2017 10:04 PM EST) P athologist Signature POC Glucose 198 65 - 199 [facility] mg/dL [facility] Comment: Supplemental ranges: <140 mg/dL before meals <180 mg/dL all other times of the day Specimen Anatomical Collection Method Collection Time Receive d Time (Source) Location / / Volume Laterality Blood specimen 07/08/2017 10:04 7 (specimen) PM EST 10:04 PM EST Yuan Webber MD POINT OF CARE TEST ORDERABLE S Performing Organization Address City/[facility]/[place] [address] Prepare Albumin 5% in 250 mL (07/08/2017 8:49 PM EST) P athologist Signature Dispensed? Yes [facility] Specimen Anatomical Collection Method Collection Time Receive d Time (Source) Location / / Volume Laterality Blood specimen No Charge / 07/08/2017 8:49 PM 017 8:51 (specimen) Unknown EST PM EST Resulting Agency Comment Spec In Lab [facility] ORDERABLES Performing Organization Address City/State/[place] [address] POCT Glucose (07/08/2017 8:28 PM EST) athologist Signature POC Glucose 195 65 - 199 KATALINA RYAN mg/dL [facility] Comment: Supplemental ranges: <140 mg/dL before meals <180 mg/dL all other times of the day Specimen Anatomical Collection Method Collection Time Receive d Time (Source) Location / / Volume Laterality Blood specimen 07/08/2017 8:28 PM 017 8:28 (specimen) EST PM EST Yuan Webber MD POINT OF CARE TEST ORDERABLE S Performing Organization Address City/[facility]/[place] [address] (ABNORMAL) POCT Glucose (07/08/2017 7:13 PM EST) athologist Signature POC Glucose 220 (H) 65 - 199 KATALINA ZHAORYAN mg/dL [facility] Comment: Supplemental ranges: <140 mg/dL before meals <180 mg/dL all other times of the day Specimen Anatomical Collection Method Collection Time Receive d Time (Source) Location / / Volume Laterality Blood specimen 07/08/2017 7:13 PM 017 7:13 (specimen) EST PM EST Yuan Webber MD POINT OF CARE TEST ORDERABLE S Performing Organization Address City/[facility]/[place] [address] POCT Glucose (07/08/2017 5:04 PM EST) athologist Signature POC Glucose 147 65 - 199 KATALINA RYAN mg/dL [facility] Comment: Supplemental ranges: <140 mg/dL before meals <180 mg/dL all other times of the day Specimen Anatomical Collection Method Collection Time Receive d Time (Source) Location / / Volume Laterality Blood specimen 07/08/2017 5:04 PM 017 5:04 (specimen) EST PM EST Yuan Webber MD POINT OF CARE TEST ORDERABLE S Performing Organization Address City/State/[place] [address] (ABNORMAL) BLOOD GAS 2 ARTERIAL (07/08/2017 4:13 PM EST) Analysis Performed At Patho logist Time Signature pH Art 7.38 7.35 - [facility] 7.45 [facility] pCO2 Art 36 35 - [address] [facility] mmHg [facility] pO2 Art 91 85 - [address] [facility] mmHg [facility] HCO3 Art 20.9 20.0 - [facility] 26.0 [facility] mmol/L [facility] BE Art -4.2 (L) -3.0 - 3.[address] [facility] mmol/L [facility] Hgb Blood Gas 11.7 (L) 13.7 - [facility] 16.5 gm/dL [facility] O2HB Art 95.1 94.0 - [facility] 97.0 % [facility] COHB Art 0.6 % [facility] Comment: Nonsmokers: 0.5-1.5% COHB Smokers: Variable, but usually less than 10% Toxic: 20-30% COHB Lethal: Greater than 60% COHB METHB Art 0.6 <=1.5 % [facility] Na Whole Blood 139 135 - 145 mmol/L [facility] K Whole Blood 4.2 3.5 - 5.0 mmol/L [facility] Comment: Please note: Patients with WBC >100,000 may have falsely elevated Potassium levels. Contact the Clinical Chemistry L aboratory if there are any questions. ICa Whole Blood 1.05 (L) 1.15 - 1.33 mmol/L [facility] Comment: Note: ??Total bilirubin higher than 20 m g/dL may lead to falsely low ionized calcium. CL Whole Blood 110 (H) 98 - 107 mmol/L [facility] Gluc Whole Bld 155 65 - 199 mg/dL [facility] Comment: Diabetes: >=200 mg/dL plus symp toms. Lactate WB 1.4 0.5 - 2.2 mmol/L [facility] FIO2 Art 40 % [facility] PF Ratio Art 228 [facility] Specimen Anatomical Collection Method Collection Time Receive d Time (Source) Location / / Volume Laterality Blood specimen 07/08/2017 4:13 PM 017 4:13 (specimen) EST PM EST Yuan Webber MD CHEMISTRY ORDERABLES Performing Organization Address City/State/[place] [address] POCT Glucose (07/08/2017 4:01 PM EST) athologist Signature POC Glucose 148 65 - 199 [facility]/dL [facility] Comment: Supplemental ranges: <140 mg/dL before meals <180 mg/dL all other times of the day Specimen Anatomical Collection Method Collection Time Receive d Time (Source) Location / / Volume Laterality Blood specimen 07/08/2017 4:01 PM 017 4:01 (specimen) EST PM EST Yuan Webber MD POINT OF CARE TEST ORDERABLE S Performing Organization Address City/State/ZIP Code Phon e Number [address] POCT Glucose (07/08/2017 3:21 PM EST) athologist Signature POC Glucose 118 65 - 199 KATALINA RYAN mg/dL [facility] Comment: Supplemental ranges: <140 mg/dL before meals <180 mg/dL all other times of the day Specimen Anatomical Collection Method Collection Time Receive d Time (Source) Location / / Volume Laterality Blood specimen 07/08/2017 3:21 PM 017 3:21 (specimen) EST PM EST Yuan Webber MD POINT OF CARE TEST ORDERABLE S Performing Organization Address City/State/ZIP Code Phon e Number [address] POCT Glucose (07/08/2017 2:01 PM EST) athologist Signature POC Glucose 129 65 - 199 [facility] mg/dL [facility] Comment: Supplemental ranges: <140 mg/dL before meals <180 mg/dL all other times of the day Specimen Anatomical Collection Method Collection Time Receive d Time (Source) Location / / Volume Laterality Blood specimen 07/08/2017 2:01 PM 017 2:01 (specimen) EST PM EST Yuan Webber MD POINT OF CARE TEST ORDERABLE S Performing Organization Address City/State/ZIP Code Phon e Number [address] POCT Glucose (07/08/2017 11:53 AM EST) athologist Signature POC Glucose 156 65 - 199 KATALINA RYAN mg/dL [facility] Comment: Supplemental ranges: <140 mg/dL before meals <180 mg/dL all other times of the day Specimen Anatomical Collection Method Collection Time Receive d Time (Source) Location / / Volume Laterality Blood specimen 07/08/2017 11:53 7 (specimen) AM EST 11:53 AM EST Yuan Webber MD POINT OF CARE TEST ORDERABLE S Performing Organization Address City/State/[place] [address] POCT Glucose (07/08/2017 11:04 AM EST) athologist Signature POC Glucose 181 65 - 199 KATALINA RYAN mg/dL [facility] Comment: Supplemental ranges: <140 mg/dL before meals <180 mg/dL all other times of the day Specimen Anatomical Collection Method Collection Time Receive d Time (Source) Location / / Volume Laterality Blood specimen 07/08/2017 11:04 7 (specimen) AM EST 11:04 AM EST Yuan Webber MD POINT OF CARE TEST ORDERABLE S Performing Organization Address City/State/[place] [address] (ABNORMAL) POCT Glucose (07/08/2017 9:24 AM EST) P athologist Signature POC Glucose 203 (H) 65 - 199 KATALINA RYAN mg/dL [facility] Comment: Supplemental ranges: <140 mg/dL before meals <180 mg/dL all other times of the day Specimen Anatomical Collection Method Collection Time Receive d Time (Source) Location / / Volume Laterality Blood specimen 07/08/2017 9:24 AM 017 9:24 (specimen) EST AM EST Yuan Webber MD POINT OF CARE TEST ORDERABLE S Performing Organization Address City/[facility]/[place] [address] APTT (07/08/2017 8:40 AM EST) P athologist Signature PTT 33 25 - 35 sec [facility] Comment: The recommended therapeutic range for fu ll dose, unfractionated heparin at [facility] is 80 ? 114 seconds. The use [...] Webber MD HEMATOLOGY ORDERABLES Performing Organization Address City/[facility]/[place] [address] (ABNORMAL) Prothrombin Time (07/08/2017 [...] Organization Address City/State/[place] [address] (ABNORMAL) POCT Glucose (07/08/2017 7:38 AM EST) athologist Signature POC Glucose 232 (H) 65 - 199 [facility] mg/dL [facility] Comment: Supplemental ranges: <140 mg/dL before meals <180 mg/dL all other times of the day Specimen Anatomical Collection Method Collection Time Receive d Time (Source) Location / / Volume Laterality Blood specimen 07/08/2017 7:38 AM 017 7:38 (specimen) EST AM EST Yuan Webber MD POINT OF CARE TEST ORDERABLE S Performing Organization Address City/[facility]/[place] [address] (ABNORMAL) POCT Glucose (07/08/2017 7:07 AM EST) athologist Signature POC Glucose 234 (H) 65 - 199 [facility] mg/dL [facility] Comment: Supplemental ranges: <140 mg/dL before meals <180 mg/dL all other times of the day Specimen Anatomical Collection Method Collection Time Receive d Time (Source) Location / / Volume Laterality Blood specimen 07/08/2017 7:07 AM 017 7:07 (specimen) EST AM EST Yuan Webber MD POINT OF CARE TEST ORDERABLE S Performing Organization Address City/[facility]/[place] [address] (ABNORMAL) POCT Glucose (07/08/2017 6:04 AM EST) athologist Signature POC Glucose 225 (H) 65 - 199 [facility] RYAN mg/dL [facility] Comment: Supplemental ranges: <140 mg/dL before meals <180 mg/dL all other times of the day Specimen Anatomical Collection Method Collection Time Receive d Time (Source) Location / / Volume Laterality Blood specimen 07/08/2017 6:04 AM 017 6:04 (specimen) EST AM EST Yuan Webber MD POINT OF CARE TEST ORDERABLE S Performing Organization Address City/State/[place] [address] (ABNORMAL) POCT Glucose (07/08/2017 5:31 AM EST) P athologist Signature POC Glucose 216 (H) 65 - 199 [facility] mg[facility]dL [facility] Comment: Supplemental ranges: <140 mg/dL before meals <180 mg/dL all other times of the day Specimen Anatomical Collection Method Collection Time Receive d Time (Source) Location / / Volume Laterality Blood specimen 07/08/2017 5:31 AM 017 5:31 (specimen) EST AM EST Yuan Webber MD POINT OF CARE TEST ORDERABLE S Performing Organization Address City/[facility]/[place] [address] (ABNORMAL) POCT Glucose (07/08/2017 4:52 AM EST) P athologist Signature POC Glucose 257 (H) 65 - 199 [facility] mg/dL [facility] Comment: Supplemental ranges: <140 mg/dL before meals <180 mg/dL all other times of the day Specimen Anatomical Collection Method Collection Time Receive d Time (Source) Location / / Volume Laterality Blood specimen 07/08/2017 4:52 AM 017 4:52 (specimen) EST AM EST Daphne Shahid MD POINT OF CARE TEST ORDERABLE S Performing Organization Address City/State/[place] [address] (ABNORMAL) BLOOD GAS 2 ARTERIAL (07/08/2017 4:04 AM EST) Analysis Performed At Patho logist Time Signature pH Art 7.30 (L) 7.35 - [facility] 7.45 [facility] pCO2 Art 41 35 - 45 [facility] LABORATORY pO2 Art 83 (L) 85 - 104 [facility] LABORATORY HCO3 Art 19.6 (L) 20.0 - [facility] 26.0 [facility] mmol/L HOSPITAL LABORATORY BE Art -6.8 (L) -3.0 - 3.[address] [facility] mmol/L [facility] Hgb Blood Gas 12.2 (L) 13.7 - [facility] 16.5 gm/dL [facility] O2HB Art 93.5 (L) 94.0 - [facility] 97.0 % [facility] COHB Art 0.4 % [facility] Comment: Nonsmokers: 0.5-1.5% COHB Smokers: Variable, but usually less than 10% Toxic: 20-30% COHB Lethal: Greater than 60% COHB METHB Art 0.8 <=1.5 % [facility] Na Whole Blood 138 135 - 145 mmol/L [facility] K Whole Blood 4.4 3.5 - 5.0 mmol/L [facility] Comment: Please note: Patients with WBC >100,000 may have falsely elevated Potassium levels. Contact the Clinical Chemistry L aboratory if there are any questions. ICa Whole Blood 1.05 (L) 1.15 - 1.33 mmol/L [facility] Comment: Note: ??Total bilirubin higher than 20 m g/dL may lead to falsely low ionized calcium. CL Whole Blood 107 98 - 107 mmol/L [facility] Gluc Whole Bld 274 (H) 65 - 199 mg/dL [facility] Comment: Diabetes: >=200 mg/dL plus symp toms. Lactate WB 4.4 (Critical) 0.5 - 2.2 mmol/L [facility] Comment: Noted by instrument adjuster. FIO2 Art 40 % [facility] PF Ratio Art 208 [facility] Specimen Anatomical Collection Method Collection Time Receive d Time (Source) Location / / Volume Laterality Blood specimen 07/08/2017 4:04 AM 017 4:04 (specimen) EST AM EST Daphne Shahid MD CHEMISTRY ORDERABLES Performing Organization Address City/State/[place] [address] Scan, Peripheral Blood (07/08/2017 4:00 AM EST) P athologist Signature Plat Estimate Normal [facility] RBC Morphology Normal [facility] Specimen Anatomical Collection Method Collection Time Receive d Time (Source) Location / / Volume Laterality Blood specimen 07/08/2017 4:00 AM 017 4:09 (specimen) EST AM EST Resulting Agency Comment Spec In Lab Yuan Webber MD HEMATOLOGY ORDERABLES Performing Organization Address City/State/[place] [address] (ABNORMAL) Differential, Automated (07/08/2017 4:00 AM EST) Patholo gist Method Time Signature Neutrophils % 85.4 % [facility] Neutr Abs (ANC) 16.07 (H) 1.70 - [facility] 6.10 [facility] x10(3)/[facility] LABORATORY Lymphocytes % 3.5 % [facility] Lymphocytes Abs 0.6 (L) 0.9 - 3.[address] [facility] x10(3)/[facility] LABORATORY Monocytes % 10.4 % [facility] Monocyte Abs 2.0 (H) 0.3 - 0.[address] [facility] x10(3)/[facility] LABORATORY Eosinophils % 0.0 % [facility] Eosinophils Abs 0.0 0.0 - 0.[address] [facility] x10(3)/[facility] LABORATORY Basophils % 0.1 % [facility] Basophils Abs 0.0 0.0 - 0.[address] [facility] x10(3)/[facility] LABORATORY Immature Gran % 0.60 % [...] Gran Abs 0.12 (H) 0.00 - 0.04 x10(3)/[facility] LABORATORY Specimen Anatomical Collection Method Collection Time Receive d Time (Source) Location / / Volume Laterality Blood specimen 07/08/2017 4:00 AM 017 4:09 (specimen) EST AM EST Resulting Agency Comment Spec In Lab Yuan Webber MD HEMATOLOGY ORDERABLES Performing Organization Address City/State/[place] [address] (ABNORMAL) Hemogram (07/08/2017 4:00 AM EST) Analysis Performed At Patho logist Time Signature WBC 18.8 (H) 4.0 - 9.[address] [facility] x10(3)/[facility] LABORATORY RBC 4.00 (L) 4.58 - [facility] 5.54 [facility] x10(6)/[facility] LABORATORY Hemoglobin 11.9 (L) 13.7 - [facility] 16.5 gm/dL [facility] Hematocrit 35.9 (L) 40.5 - [facility] 48.5 % [facility] MCV 89.8 82.9 - [facility] 93.1 [facility] LABORATORY MCH 29.8 27.5 - [facility] 32.1 pg [facility] MCHC 33.1 32.0 - [facility] 35.7 gm/dL [facility] Platelets 232 145 - [address] [facility] x10(3)/[facility] LABORATORY RDWSD 47.6 (H) 36.0 - [facility] 45.0 [facility] LABORATORY RDWCV 14.5 (H) 11.4 - [facility] 13.8 % [facility] MPV 9.5 7.6 - 12.9 [facility] LABORATORY nRBC % Auto 0.0 % [facility] nRBC Abs Auto 0.000 0.000 - [facility] 0.000 [facility] x10(3)/[facility] LABORATORY Specimen Anatomical Collection Method Collection Time Receive d Time (Source) Location / / Volume Laterality Blood specimen 07/08/2017 4:00 AM 017 4:09 (specimen) EST AM EST Resulting Agency Comment Spec In Lab Yuan Webber MD HEMATOLOGY ORDERABLES Performing Organization Address City/[facility]/[place] [address] (ABNORMAL) Electrolytes panel (07/08/2017 4:00 AM EST) athologist Signature Sodium 139 135 - [address] [facility] mmol/L [facility] Potassium 4.7 3.5 - 5.[address] [facility] mmol/L [facility] Comment: result rechecked-JLK Please note: ??Patients with WBC >100,00 0 may have falsely elevated Potassium levels. ??For accurate Potassium quantif ication in these patients send serum separator tube (gold top) for subsequent determinations. ??Contact the Clinical Chemistry Laboratory if there are any qu estions. Chloride 104 98 - 107 mmol/L [facility] CO2 21 (L) 22 - 31 mmol/L [facility] Anion Gap 14 5 - 15 mmol/L [facility] Specimen Anatomical Collection Method Collection Time Receive d Time (Source) Location / / Volume Laterality Blood specimen 07/08/2017 4:00 AM 017 4:10 (specimen) EST AM EST Resulting Agency Comment Spec In Lab Yuan Webber MD CHEMISTRY ORDERABLES Performing Organization Address City/[facility]/[place] [address] (ABNORMAL) Cardiac Enzymes (LEB/CGP) (07/08/2017 4:00 AM EST) athologist [facility] Troponin-T 1.88 (H) 0.00 - [facility] 0.00 ng/mL [facility] Comment: The 99th percentile for Troponin T is le ss than 0.01 ng/mL, any detectable cTnT concentration using this assay should be considered elevated. According to the third universal definit ion of myocardial infarction the following criteria with a clinical prese ntation consistent with acute myocardial ischemia meets the diagnosis for a myocardial infarction (DE). Detection of a rise and/or fall of [...] additional sample may be indicated. Reference: Third Rickreall Definition of Myocardial Infarction. Journal of the [place] [employer] 2012;60:1581-98 CK, Total 413 (H) 0 - 200 unit/L [facility] Comment: result rechecked-AYDIN Specimen Anatomical Collection Method Collection Time Receive d Time (Source) Location / / Volume Laterality Blood specimen 07/08/2017 4:00 AM 017 4:09 (specimen) EST AM EST Resulting Agency Comment Spec In Lab Yuan Webber MD CHEMISTRY ORDERABLES Performing Organization Address City/State/[place] [address] (ABNORMAL) Glucose, fasting (07/08/2017 4:00 AM EST) athologist Signature Glucose 287 (H) 65 - [address] [facility] Fasting mg/dL [facility] Comment: ?Fasting* Glucose Interpretive C riteria [...] of Diabetes Mellitus, Position Statement from the [place] [employer]. ??Diabete s Care, Volume 33, Supplement 1, Jul 2009 Specimen Anatomical Collection Method Collection Time Receive d Time (Source) Location / / Volume Laterality Blood specimen 07/08/2017 4:00 AM 017 4:09 (specimen) EST AM EST Resulting Agency Comment Spec In Lab Yuan Webber MD CHEMISTRY ORDERABLES Performing Organization Address City/State/[place] [address] (ABNORMAL) Creatinine (07/08/2017 4:00 AM EST) Analysis Performed At Patho logist Time Signature Creatinine 1.55 (H) 0.80 - [facility] 1.50 mg/dL [facility] Estimated GFR 44 (L) >=60 [facility] Comment: The reported eGFR should be multiplied b y 1.2 for patients. The MDRD is not an appropriate measure o f renal function for patients with body mass extremes or in patients with acute kidney failure. http://[employer]DHnkdep http://[employer]DHMCnkf Specimen Anatomical Collection Method Collection Time Receive d Time (Source) Location / / Volume Laterality Blood specimen 07/08/2017 4:00 AM 017 4:09 (specimen) EST AM EST Resulting Agency Comment Spec In Lab Yuan Webber MD CHEMISTRY ORDERABLES Performing Organization Address City/State/[place] [address] BUN (07/08/2017 4:00 AM EST) P athologist Signature BUN 16 10 - 20 [facility] mg/dL [facility] Specimen Anatomical Collection Method Collection Time Receive d Time (Source) Location / / Volume Laterality Blood specimen 07/08/2017 4:00 AM 017 4:09 (specimen) EST AM EST Resulting Agency Comment Spec In Lab Yuan Webber MD CHEMISTRY ORDERABLES Performing Organization Address City/[facility]/[place] [address] (ABNORMAL) POCT Glucose (07/08/2017 3:00 AM EST) P athologist Signature POC Glucose 273 (H) 65 - 199 [facility] mg/dL [facility] Comment: Supplemental ranges: <140 mg/dL before meals <180 mg/dL all other times of the day Specimen Anatomical Collection Method Collection Time Receive d Time (Source) Location / / Volume Laterality Blood specimen 07/08/2017 3:00 AM 017 3:00 (specimen) EST AM EST Daphne Shahid MD POINT OF CARE TEST ORDERABLE S Performing Organization Address City/State/[place] [address] (ABNORMAL) POCT Glucose (07/08/2017 1:57 AM EST) athologist Signature POC Glucose 288 (H) 65 - 199 [facility] mg/dL [facility] Comment: Supplemental ranges: <140 mg/dL before meals <180 mg/dL all other times of the day Specimen Anatomical Collection Method Collection Time Receive d Time (Source) Location / / Volume Laterality Blood specimen 07/08/2017 1:57 AM 017 1:57 (specimen) EST AM EST Daphne Shahid MD POINT OF CARE TEST ORDERABLE S Performing Organization Address City/State/[place] [address] (ABNORMAL) POCT Glucose (07/08/2017 1:01 AM EST) athologist Signature POC Glucose 315 (H) 65 - 199 [facility] mg/dL [facility] Comment: Supplemental ranges: <140 mg/dL before meals <180 mg/dL all other times of the day Specimen Anatomical Collection Method Collection Time Receive d Time (Source) Location / / Volume Laterality Blood specimen 07/08/2017 1:01 AM 017 1:01 (specimen) EST AM EST Daphne Shahid MD POINT OF CARE TEST ORDERABLE S Performing Organization Address City/State/[place] [address] (ABNORMAL) BLOOD GAS 2 ARTERIAL (07/08/2017 12:09 AM EST) athologist Signature pH Art 7.26 7.35 - [facility] (Critical) 7.45 [facility] Comment: Noted by instrument adjuster. pCO2 Art 41 35 - 45 mmHg [facility] pO2 Art 96 85 - 104 mmHg [facility] HCO3 Art 17.7 (L) 20.0 - 26.0 mmol/L [facility] BE Art -9.4 (L) -3.0 - 3.0 mmol/L [facility]OR[facility] Hgb Blood Gas 12.4 (L) 13.7 - 16.5 gm/dL [facility] O2HB Art 94.7 94.0 - 97.0 % [facility] COHB Art 0.2 % [facility] Comment: Nonsmokers: 0.5-1.5% COHB Smokers: Variable, but usually less than 10% Toxic: 20-30% COHB Lethal: Greater than 60% COHB METHB Art 0.6 <=1.5 % [facility] Na Whole Blood 141 135 - 145 mmol/L [facility] K Whole Blood 3.5 3.5 - 5.0 mmol/L [facility] Comment: Please note: Patients with WBC >100,000 may have falsely elevated Potassium levels. Contact the Clinical Chemistry L aboratory if there are any questions. ICa Whole Blood 1.03 (L) 1.15 - 1.33 mmol/L [facility] Comment: Note: ??Total bilirubin higher than 20 m g/dL may lead to falsely low ionized calcium. CL Whole Blood 109 (H) 98 - 107 mmol/L [facility] Gluc Whole Bld 315 (H) 65 - 199 mg/dL [facility] Comment: Diabetes: >=200 mg/dL plus symp toms. Lactate WB 7.6 (Critical) 0.5 - 2.2 mmol/L [facility] Comment: Noted by instrument adjuster. FIO2 Art 40 % [facility] PF Ratio Art 240 [facility] Specimen Anatomical Collection Method Collection Time Receive d Time (Source) Location / / Volume Laterality Blood specimen Arterial Draw / 07/08/2017 12:09 2016 5:31 (specimen) Unknown AM EST AM EST Resulting Agency Comment Spec In Lab Samy Maldonado MD CHEMISTRY ORDERABLES Performing Organization Address City/[facility]/[place] [address] (ABNORMAL) POCT Glucose (07/07/2017 10:56 PM EST) athologist Signature POC Glucose 292 (H) 65 - [address] [facility] mg/dL [facility] Comment: Supplemental ranges: <140 mg/dL before meals <180 mg/dL all other times of the day Specimen Anatomical Collection Method Collection Time Receive d Time (Source) Location / / Volume Laterality Blood specimen 07/07/2017 10:56 7 (specimen) PM EST 10:56 PM EST Daphne Shahid MD POINT OF CARE TEST ORDERABLE S Performing Organization Address City/[facility]/[place] [address] (ABNORMAL) BLOOD GAS 2 ARTERIAL (07/07/2017 10:04 PM EST) athologist Signature pH Art 7.22 7.35 - [facility] (Critical) 7.45 [facility] Comment: Noted by instrument adjuster. pCO2 Art 42 35 - 45 mmHg [facility] pO2 Art 94 85 - 104 mmHg [facility] HCO3 Art 16.9 (L) 20.0 - 26.0 mmol/L [facility] BE Art -10.7 (L) -3.0 - 3.0 mmol/L [facility] Hgb Blood Gas 13.0 (L) 13.7 - 16.5 gm/dL [facility] O2HB Art 93.8 (L) 94.0 - 97.0 % [facility] COHB Art 0.7 % [facility] Comment: Nonsmokers: 0.5-1.5% COHB Smokers: Variable, but usually less than 10% Toxic: 20-30% COHB Lethal: Greater than 60% COHB METHB Art 0.7 <=1.5 % [facility] Na Whole Blood 140 135 - 145 mmol/L [facility] K Whole Blood 3.3 (L) 3.5 - 5.0 mmol/L [facility] Comment: Please note: Patients with WBC >100,000 may have falsely elevated Potassium levels. Contact the Clinical Chemistry L aboratory if there are any questions. ICa Whole Blood 1.07 (L) 1.15 - 1.33 mmol/L [facility] Comment: Note: ??Total bilirubin higher than 20 m g/dL may lead to falsely low ionized calcium. CL Whole Blood 107 98 - 107 mmol/L [facility] Gluc Whole Bld 304 (H) 65 - 199 mg/dL [facility] Comment: Diabetes: >=200 mg/dL plus symp toms. Lactate WB 8.2 (Critical) 0.5 - 2.2 mmol/L [facility] Comment: Noted by instrument adjuster. FIO2 Art 40 % [facility] PF Ratio Art 235 [facility] Specimen Anatomical Collection Method Collection Time Receive d Time (Source) Location / / Volume Laterality Blood specimen 07/07/2017 10:04 7 (specimen) PM EST 10:04 PM EST Daphne Shahid MD CHEMISTRY ORDERABLES Performing Organization Address City/State/[place] [address] (ABNORMAL) Hemoglobin (07/07/2017 10:00 PM EST) P athologist Signature Hemoglobin 12.8 (L) 13.7 - [facility] 16.5 gm/dL [facility] Specimen Anatomical Collection Method Collection Time Receive d Time (Source) Location / / Volume Laterality Blood specimen 07/07/2017 10:00 7 (specimen) PM EST 10:13 PM EST Resulting Agency Comment Spec In Lab Yuan Webber MD HEMATOLOGY ORDERABLES Performing Organization Address City/[facility]/[place] [address] (ABNORMAL) Potassium (07/07/2017 10:00 PM EST) athologist Signature Potassium 3.4 (L) 3.5 - 5.[address] [facility] mmol/L [facility] Comment: Please note: ??Patients with WBC [...] Webber MD CHEMISTRY ORDERABLES Performing Organization Address City/[facility]/[place] [address] (ABNORMAL) POCT Glucose (07/07/2017 8:49 PM EST) athologist [facility] POC Glucose 241 (H) 65 - [address] [facility] mg/dL [facility] Comment: Supplemental ranges: <140 mg/dL before meals <180 mg/dL all other times of the day Specimen Anatomical Collection Method Collection Time Receive d Time (Source) Location / / Volume Laterality Blood specimen 07/07/2017 8:49 PM 017 8:49 (specimen) EST PM EST Daphne Shahid MD POINT OF CARE TEST ORDERABLE S Performing Organization Address City/[facility]/ZIP Code Phon e Number [address] Prepare Albumin 5% in 250 mL (07/07/2017 8:03 PM EST) athologist Signature Dispensed? Yes [facility]ORY Specimen Anatomical Collection Method Collection Time Receive d Time (Source) Location / / Volume Laterality Blood specimen No Charge / 07/07/2017 8:03 PM 017 8:04 (specimen) Unknown EST PM EST Resulting Agency Comment Spec In Lab Michael BROWN BLOOD BANK ORDERABLES Performing Organization Address City/State/[place] [address] EKG 12 Lead (07/07/2017 7:17 PM EST) Component Value Ref Range Test Analysis Performed Pathologis t Method Time At Signature Ventricular rate 75 BPM MUSE SYSTEM Atrial Rate 75 BPM MUSE SYSTEM P-R Interval 168 ms MUSE SYSTEM QRS Duration 104 ms MUSE SYSTEM Q-T Interval 462 ms MUSE SYSTEM QTC Calculated 515 ms MUSE SYSTEM (Bezet) Calculated P [place] 52 degrees MUSE SYSTEM Calculated R [place] -40 degrees MUSE SYSTEM Calculated T [place] 39 degrees MUSE SYSTEM INTERPRETATION Normal sinus [...] athologist Signature pH Art 7.21 7.35 - [facility] (Critical) 7.45 [facility] Comment: Noted by instrument adjuster. pCO2 Art 50 (H) 35 - 45 mmHg [facility] pO2 Art 238 (H) 85 - 104 mmHg [facility] HCO3 Art 19.8 (L) 20.0 - 26.0 mmol/L [facility] BE Art -8.1 (L) -3.0 - 3.0 mmol/L [facility]OR[facility]ORY Hgb Blood Gas 12.8 (L) 13.7 - 16.5 gm/dL [facility] O2HB Art 97.5 (H) 94.0 - 97.0 % [facility] COHB Art 0.5 % [facility] Comment: Nonsmokers: 0.5-1.5% COHB Smokers: Variable, but usually less than 10% Toxic: 20-30% COHB Lethal: Greater than 60% COHB METHB Art 0.7 <=1.5 % [facility] Na Whole Blood 140 135 - 145 mmol/L [facility] K Whole Blood 3.0 (Critical) 3.5 - 5.0 mmol/L [facility] Comment: Noted by instrument adjuster. Please note: Patients with WBC >100,000 may have falsely elevated Potassium levels. Contact the Clinical Chemistry L aboratory if there are any questions. ICa Whole Blood 1.07 (L) 1.15 - 1.33 mmol/L [facility] Comment: Note: ??Total bilirubin higher than 20 m g/dL may lead to falsely low ionized calcium. CL Whole Blood 107 98 - 107 mmol/L [facility] Gluc Whole Bld 270 (H) 65 - 199 mg/dL [facility] Comment: Diabetes: >=200 mg/dL plus symp toms. Lactate WB 4.9 (Critical) 0.5 - 2.2 mmol/L [facility] Comment: Noted by instrument adjuster. FIO2 Art 100 % [facility] PF Ratio Art 238 [facility] Specimen Anatomical Collection Method Collection Time Receive d Time (Source) Location / / Volume Laterality Blood specimen 07/07/2017 6:57 PM 017 6:57 (specimen) EST PM EST Daphne Shahid MD CHEMISTRY ORDERABLES Performing Organization Address City/State/[place] [address] (ABNORMAL) BLOOD GAS 2 ARTERIAL (07/07/2017 5:31 PM EST) P athologist Signature pH Art 7.29 7.35 - [facility] (Critical) 7.45 [facility] Comment: Noted by instrument adjuster. pCO2 Art 48 (H) 35 - 45 mmHg [facility] pO2 Art 137 (H) 85 - 104 mmHg [facility] HCO3 Art 22.4 20.0 - 26.0 mmol/L [facility] BE Art -4.3 (L) -3.0 - 3.0 mmol/L [facility] Hgb Blood Gas 10.0 (L) 13.7 - 16.5 gm/dL [facility] O2HB Art 97.3 (H) 94.0 - 97.0 % [facility] COHB Art 0.3 % [facility] Comment: Nonsmokers: 0.5-1.5% COHB Smokers: Variable, but usually less than 10% Toxic: 20-30% COHB Lethal: Greater than 60% COHB METHB Art 0.3 <=1.5 % [facility] Na Whole Blood 132 (L) 135 - 145 mmol/L [facility] K Whole Blood 4.0 3.5 - 5.0 mmol/L [facility] Comment: Please note: Patients with WBC >100,000 may have falsely elevated Potassium levels. Contact the Clinical Chemistry L aboratory if there are any questions. ICa Whole Blood 1.14 (L) 1.15 - 1.33 mmol/L [facility] Comment: Note: ??Total bilirubin higher than 20 m g/dL may lead to falsely low ionized calcium. CL Whole Blood 105 98 - 107 mmol/L [facility] Gluc Whole Bld 293 (H) 65 - 199 mg/dL [facility] Comment: Diabetes: >=200 mg/dL plus symp toms. Lactate WB 3.1 (H) 0.5 - 2.2 mmol/L [facility] Specimen Anatomical Collection Method Collection Time Receive d Time (Source) Location / / Volume Laterality Blood specimen 07/07/2017 5:31 PM 017 5:31 (specimen) EST PM EST Daphne Shahid MD CHEMISTRY ORDERABLES Performing Organization Address City/State/[place] [address] Fibrinogen (07/07/2017 5:30 PM EST) athologist Signature Fibrinogen 224 180 - [address] [facility] mg/dL [facility] Comment: Called by: JEET, Read back [...] Perez MD HEMATOLOGY ORDERABLES Performing Organization Address City/[facility]/ZIP Code Phon e Number [address] APTT (07/07/2017 5:30 PM EST) athologist Signature PTT 30 25 - 35 sec [facility] Comment: The recommended therapeutic range for fu ll dose, unfractionated heparin at [facility] is 80 ? 114 seconds. The use [...] Perez MD HEMATOLOGY ORDERABLES Performing Organization Address City/[facility]/[place] [address] (ABNORMAL) Prothrombin Time (07/07/2017 [...] Organization Address City/State/[place] [address] (ABNORMAL) Hemogram (07/07/2017 5:30 PM EST) athologist Signature WBC 19.6 (H) 4.0 - 9.[address] [facility] x10(3)/[facility] LABORATORY RBC 3.08 (L) 4.58 - [facility] 5.54 [facility] x10(6)/[facility] LABORATORY Hemoglobin 9.2 (L) 13.7 - [facility] 16.5 gm/dL [facility] Hematocrit 28.0 (L) 40.5 - [facility] 48.5 % [facility] Comment: This result has been called to MONICA WEINSTEIN LUISA by DONALD GROSSMAN on 07 07 2017 at 1759, and has been read back. MCV 90.9 82.9 - 93.1 fL [facility] MCH 29.9 27.5 - 32.1 pg [facility] MCHC 32.9 32.0 - 35.7 gm/dL [facility] Platelets 155 145 - 357 x10(3)/[facility] LABORATORY RDWSD 46.5 (H) 36.0 - 45.0 [facility] LABORATORY RDWCV 14.1 (H) 11.4 - 13.8 % [facility] MPV 9.5 7.6 - 12.9 [facility] LABORATORY nRBC % Auto 0.0 % [facility] nRBC Abs Auto 0.000 0.000 - 0.000 x10(3)/[facility] Specimen Anatomical Collection Method Collection Time Receive d Time (Source) Location / / Volume Laterality Blood specimen 07/07/2017 5:30 PM 017 5:34 (specimen) EST PM EST Resulting Agency Comment Spec In Lab Yifan Perez MD HEMATOLOGY ORDERABLES Performing Organization Address [facility] Phon e Number [address] Prepare Platelets, Apheresis (07/07/2017 5:00 PM EST) P athologist Signature Dispensed? Yes [facility] Specimen Anatomical Collection Method Collection Time Receive d Time (Source) Location / / Volume Laterality Blood specimen 07/07/2017 5:00 PM 017 4:58 (specimen) EST PM EST Daphne Shahid MD BLOOD BANK ORDERABLES Performing Organization Address City/[facility] Phon e Number [address] Platelet count (07/07/2017 4:55 PM EST) P athologist Signature Platelets 177 145 - [address] [facility] x10(3)/[facility] LABORATORY Plat Immature 1.5 0.0 - 7.[address] [facility] % % [facility] Comment: Limitation of the Immature Platelet Frac tion (IPF)-May be less reliable when the platelet count is less than [id number] L due to statistical imprecision. The IPF [...] in a decreased state of production. References: [employer] The Clinical Value of the Immature Platelet Fraction (IPF) in Cell Recovery Document Number 10-1143 12/2010 [employer] The Role of the Imm ature [...] Organization Address City/State/[place] [address] (ABNORMAL) Hemoglobin and Hematocrit, blood (07/07/2017 4:55 PM EST) P athologist Signature Hemoglobin 9.1 (L) 13.7 - 16.[address] [facility] gm/dL [facility] Comment: This result has been called to MALKA MORAN by DONALD GROSSMAN on 07 07 2017 at 1734, and has been read back. Hematocrit 26.6 (L) 40.5 - 48.5 % [facility] Comment: This result has [...] Organization Address City/State/[place] [address] (ABNORMAL) BLOOD GAS 2 ARTERIAL (07/07/2017 4:38 PM EST) Analysis Performed At Patho logist Time Signature pH Art 7.37 7.35 - [facility] 7.45 [facility] pCO2 Art 44 35 - [address] [facility] mmHg [facility] pO2 Art 322 (H) 85 - 104 [facility] LABORATORY HCO3 Art 24.9 20.0 - [facility] 26.0 [facility] mmol/L [facility] BE Art -0.4 -3.0 - 3.[address] [facility] mmol/L [facility] Hgb Blood Gas 10.1 (L) 13.7 - [facility] 16.5 gm/dL [facility] O2HB Art 98.7 (H) 94.0 - [facility] 97.0 % [facility] COHB Art 0.1 % [facility] Comment: Nonsmokers: 0.5-1.5% COHB Smokers: Variable, but usually less than 10% Toxic: 20-30% COHB Lethal: Greater than 60% COHB METHB Art 0.3 <=1.5 % [facility] Na Whole Blood 130 (L) 135 - 145 mmol/L [facility] K Whole Blood 5.7 (H) 3.5 - 5.0 mmol/L [facility] Comment: Please note: Patients with WBC >100,000 may have falsely elevated Potassium levels. Contact the Clinical Chemistry L aboratory if there are any questions. ICa Whole Blood 0.89 (Critical) 1.15 - 1.33 mmol/L [facility] Comment: Noted by instrument adjuster. Note: ??Total bilirubin higher than 20 m g/dL may lead to falsely low ionized calcium. CL Whole Blood 101 98 - 107 mmol/L [facility] Gluc Whole Bld 295 (H) 65 - 199 mg/dL [facility] Comment: Diabetes: >=200 mg/dL plus symp toms. Lactate WB 1.7 0.5 - 2.2 mmol/L [facility] Specimen Anatomical Collection Method Collection Time Receive d Time (Source) Location / / Volume Laterality Blood specimen 07/07/2017 4:38 PM 017 4:38 (specimen) EST PM EST Daphen Shahid MD CHEMISTRY ORDERABLES Performing Organization Address City/State/[place] [address] (ABNORMAL) BLOOD GAS 2 VENOUS (07/07/2017 4:06 PM EST) Analysis Performed At Patho logist Time Signature pH Cody 7.31 (L) 7.32 - [facility] 7.42 [facility] pCO2 Cody 47 41 - 51 [facility]ORY pO2 Cody 53 (H) 25 - 40 [facility]ATORY HCO3 Cody 22.7 mmol/L [facility] BE Cody -3.7 mmol/L [facility] Hgb Blood Gas 10.2 (L) 13.7 - [facility] 16.5 gm/dL [facility] O2HB Cody 81.0 % [facility] COHB Cody 1.0 % [facility] Comment: Nonsmokers: 0.5-1.5% COHB Smokers: Variable, but usually less than 10% Toxic: 20-30% COHB Lethal: Greater than 60% COHB METHB Cody 0.3 <=1.5 % [facility] Na Whole Blood 132 (L) 135 - 145 mmol/L [facility] K Whole Blood 5.3 (H) 3.5 - 5.0 mmol/L [facility] Comment: Please note: Patients with WBC >100,000 may have falsely elevated Potassium levels. Contact the Clinical Chemistry L aboratory if there are any questions. ICa Whole Blood 0.90 (Critical) 1.15 - 1.33 mmol/L [facility] Comment: Noted by instrument adjuster. Note: ??Total bilirubin higher than 20 m g/dL may lead to falsely low ionized calcium. CL Whole Blood 100 98 - 107 mmol/L [facility] Gluc Whole Bld 231 (H) 65 - 199 mg/dL [facility] Comment: Diabetes: >=200 mg/dL plus symp toms Lactate WB 1.1 0.5 - 2.2 mmol/L [facility] BGas Source Venous [facility] Specimen Anatomical Collection Method Collection Time Receive d Time (Source) Location / / Volume Laterality Blood specimen 07/07/2017 4:06 PM 017 4:06 (specimen) EST PM EST Daphne Shahid MD CHEMISTRY ORDERABLES Performing Organization Address City/State/[place] [address] (ABNORMAL) BLOOD GAS 2 ARTERIAL (07/07/2017 4:05 PM EST) Analysis Performed At Patho logist Time Signature pH Art 7.36 7.35 - [facility] 7.45 [facility] pCO2 Art 40 35 - [address] [facility] mmHg [facility] pO2 Art 282 (H) 85 - 104 [facility] LABORATORY HCO3 Art 22.1 20.0 - [facility] 26.0 [facility] mmol/L [facility] BE Art -3.4 (L) -3.0 - 3.[address] [facility] mmol/L [facility] Hgb Blood Gas 10.2 (L) 13.7 - [facility] 16.5 gm/dL [facility] O2HB Art 98.4 (H) 94.0 - [facility] 97.0 % [facility] COHB Art 0.3 % [facility] Comment: Nonsmokers: 0.5-1.5% COHB Smokers: Variable, but usually less than 10% Toxic: 20-30% COHB Lethal: Greater than 60% COHB METHB Art 0.3 <=1.5 % [facility] Na Whole Blood 131 (L) 135 - 145 mmol/L [facility] K Whole Blood 5.4 (H) 3.5 - 5.0 mmol/L [facility] Comment: Please note: Patients with WBC >100,000 may have falsely elevated Potassium levels. Contact the Clinical Chemistry L aboratory if there are any questions. ICa Whole Blood 0.86 (Critical) 1.15 - 1.33 mmol/L [facility] Comment: Noted by instrument adjuster. Note: ??Total bilirubin higher than 20 m g/dL may lead to falsely low ionized calcium. CL Whole Blood 101 98 - 107 mmol/L [facility] Gluc Whole Bld 260 (H) 65 - 199 mg/dL [facility] Comment: Diabetes: >=200 mg/dL plus symp toms. Lactate WB 1.4 0.5 - 2.2 mmol/L [facility] Specimen Anatomical Collection Method Collection Time Receive d Time (Source) Location / / Volume Laterality Blood specimen 07/07/2017 4:05 PM 017 4:05 (specimen) EST PM EST Daphne Shahid MD CHEMISTRY ORDERABLES Performing Organization Address City/State/[place] [address] (ABNORMAL) BLOOD GAS 2 ARTERIAL (07/07/2017 2:29 PM EST) Analysis Performed At Patho logist Time Signature pH Art 7.43 7.35 - [facility] 7.45 [facility] pCO2 Art 36 35 - [address] [facility] mmHg [facility] pO2 Art 221 (H) 85 - 104 [facility] LABORATORY HCO3 Art 23.2 20.0 - [facility] 26.0 [facility] mmol/L [facility] BE Art -1.2 -3.0 - 3.[address] [facility] mmol/L [facility] Hgb Blood Gas 13.9 13.7 - [facility] 16.5 gm/dL [facility] O2HB Art 97.8 (H) 94.0 - [facility] 97.0 % [facility] COHB Art 1.1 % [facility] Comment: Nonsmokers: 0.5-1.5% COHB Smokers: Variable, but usually less than 10% Toxic: 20-30% COHB Lethal: Greater than 60% COHB METHB Art 0.3 <=1.5 % [facility] Na Whole Blood 139 135 - 145 mmol/L [facility] K Whole Blood 4.0 3.5 - 5.0 mmol/L [facility] Comment: Please note: Patients with WBC >100,000 may have falsely elevated Potassium levels. Contact the Clinical Chemistry L aboratory if there are any questions. ICa Whole Blood 1.11 (L) 1.15 - 1.33 mmol/L [facility] Comment: Note: ??Total bilirubin higher than 20 m g/dL may lead to falsely low ionized calcium. CL Whole Blood 104 98 - 107 mmol/L [facility] Gluc Whole Bld 184 65 - 199 mg/dL [facility] Comment: Diabetes: >=200 mg/dL plus symp toms. Lactate WB 1.5 0.5 - 2.2 mmol/L [facility] Specimen Anatomical Collection Method Collection Time Receive d Time (Source) Location / / Volume Laterality Blood specimen 07/07/2017 2:29 PM 017 2:29 (specimen) EST PM EST Daphne Shahid MD CHEMISTRY ORDERABLES Performing Organization Address City/[facility]/ZIP Code Phon e Number [address] Prepare Coag Factors (Non-Hemophilia) (07/07/2017 1:25 PM EST) P athologist Signature Dispensed? Yes [facility] Specimen Anatomical Collection Method Collection Time Receive d Time (Source) Location / / Volume Laterality Blood specimen 07/07/2017 1:25 PM 017 1:21 (specimen) EST PM EST Daphne Shahid MD BLOOD BANK ORDERABLES Performing Organization Address City/[facility]/[place] [address] Prepare RBC (07/07/2017 1:10 PM EST) P athologist Signature Dispensed? Yes [facility] Specimen Anatomical Collection Method Collection Time Receive d Time (Source) Location / / Volume Laterality Blood specimen 07/07/2017 1:10 PM 017 1:05 (specimen) EST PM EST Daphne Shahid MD BLOOD BANK ORDERABLES Performing Organization Address City/[facility]/[place] [address] POCT Glucose (07/07/2017 11:56 AM EST) P athologist Signature POC Glucose 188 65 - [address] [facility] mg/dL [facility] Comment: Supplemental ranges: <140 mg/dL before meals <180 mg/dL all other times of the day Specimen Anatomical Collection Method Collection Time Receive d Time (Source) Location / / Volume Laterality Blood specimen 07/07/2017 11:56 7 (specimen) AM EST 11:56 AM EST Daphne Shahid MD POINT OF CARE TEST ORDERABLE S Performing Organization Address City/[facility]/ZIP Code Phon e Number [address] POCT Glucose (07/07/2017 11:05 AM EST) P athologist Signature POC Glucose 168 65 - 199 [facility] mg/dL [facility] Comment: Supplemental ranges: <140 mg/dL before meals <180 mg/dL all other times of the day Specimen Anatomical Collection Method Collection Time Receive d Time (Source) Location / / Volume Laterality Blood specimen 07/07/2017 11:05 7 (specimen) AM EST 11:05 AM EST Daphne Shahid MD POINT OF CARE TEST ORDERABLE S Performing Organization Address City/[facility]/ZIP Code Phon e Number [address] POCT Glucose (07/07/2017 10:02 AM EST) P athologist Signature POC Glucose 191 65 - 199 [facility] mg/dL [facility] Comment: Supplemental ranges: <140 mg/dL before meals <180 mg/dL all other times of the day Specimen Anatomical Collection Method Collection Time Receive d Time (Source) Location / / Volume Laterality Blood specimen 07/07/2017 10:02 7 (specimen) AM EST 10:02 AM EST Daphne Shahid MD POINT OF CARE TEST ORDERABLE S Performing Organization Address City/[facility]/ZIP Code Phon e Number [address] POCT Glucose (07/07/2017 7:53 AM EST) P athologist Signature POC Glucose 178 65 - 199 [facility] Comment: Supplemental ranges: <140 mg/dL before meals <180 mg/dL all other times of the day Specimen Anatomical Collection Method Collection Time Receive d Time (Source) Location / / Volume Laterality Blood specimen 07/07/2017 7:53 AM 017 7:53 (specimen) EST AM EST Daphne Shahid MD POINT OF CARE TEST ORDERABLE S Performing Organization Address City/State/ZIP Code Phon e Number [address] POCT Glucose (07/07/2017 7:03 AM EST) athologist Signature POC Glucose 188 65 - 199 [facility]/dL [facility] Comment: Supplemental ranges: <140 mg/dL before meals <180 mg/dL all other times of the day Specimen Anatomical Collection Method Collection Time Receive d Time (Source) Location / / Volume Laterality Blood specimen 07/07/2017 7:03 AM 017 7:03 (specimen) EST AM EST Daphne Shahid MD POINT OF CARE TEST ORDERABLE S Performing Organization Address City/[facility]/[place] [address] (ABNORMAL) POCT Glucose (07/07/2017 6:17 AM EST) athologist Signature POC Glucose 207 (H) 65 - 199 [facility] mg/dL [facility] Comment: Supplemental ranges: <140 mg/dL before meals <180 mg/dL all other times of the day Specimen Anatomical Collection Method Collection Time Receive d Time (Source) Location / / Volume Laterality Blood specimen 07/07/2017 6:17 AM 017 6:17 (specimen) EST AM EST Daphne Shahid MD POINT OF CARE TEST ORDERABLE S Performing Organization Address City/[facility]/ZIP Code Phon e Number [address] Differential, Automated (07/07/2017 5:15 AM EST) athologist Signature Neutrophils % 69.7 % [facility] Neutr Abs (ANC) 5.32 1.70 - [facility] 6.10 [facility] x10(3)/[facility] LABORATORY Lymphocytes % 16.3 % [facility] Lymphocytes Abs 1.2 0.9 - 3.[address] [facility] x10(3)/[facility] LABORATORY Monocytes % 10.5 % [facility] Monocyte Abs 0.8 0.3 - 0.[address] [facility] x10(3)/[facility] LABORATORY Eosinophils % 2.5 % [facility] Eosinophils Abs 0.2 0.0 - 0.[address] [facility] x10(3)/[facility] LABORATORY Basophils % 0.7 % [facility] Basophils Abs 0.0 0.0 - 0.[address] [facility] x10(3)/[facility] LABORATORY Immature Gran % 0.30 % [...] Melisa Gran Abs 0.02 0.00 - 0.04 x10(3)/[facility] LABORATORY Specimen Anatomical Collection Method Collection Time Receive d Time (Source) Location / / Volume Laterality Blood specimen 07/07/2017 5:15 AM 017 5:34 (specimen) EST AM EST Resulting Agency Comment Spec In Lab Daphne Shahid MD HEMATOLOGY ORDERABLES Performing Organization Address City/State/[place] [address] (ABNORMAL) Hemogram (07/07/2017 5:15 AM EST) Analysis Performed At Patho logist Time Signature WBC 7.6 4.0 - 9.[address] [facility] x10(3)/[facility] LABORATORY RBC 4.82 4.58 - [facility] 5.54 [facility] x10(6)/[facility] LABORATORY Hemoglobin 14.4 13.7 - [facility] 16.5 gm/dL [facility] Hematocrit 42.1 40.5 - [facility] 48.5 % [facility] MCV 87.3 82.9 - [facility] 93.1 fL [facility] MCH 29.9 27.5 - [facility] 32.1 pg [facility] MCHC 34.2 32.0 - [facility]IS 35.7 gm/dL [facility] Platelets 188 145 - 357 [facility] x10(3)/[facility] LABORATORY RDWSD 45.1 (H) 36.0 - [facility] DAVIS 45.0 [facility] LABORATORY RDWCV 14.3 (H) 11.4 - [facility] 13.8 % [facility] MPV 9.4 7.6 - 12.9 [facility] LABORATORY nRBC % Auto 0.0 % [facility] nRBC Abs Auto 0.000 0.000 - [facility] DAVIS 0.000 [facility] x10(3)/[facility] LABORATORY Specimen Anatomical Collection Method Collection Time Receive d Time (Source) Location / / Volume Laterality Blood specimen 07/07/2017 5:15 AM 017 5:34 (specimen) EST AM EST Resulting Agency Comment Spec In Lab Daphne Shahid MD HEMATOLOGY ORDERABLES Performing Organization Address City/[facility]/ZIP Code Phon e Number [address] (ABNORMAL) APTT (07/07/2017 5:15 AM EST) P athologist Signature PTT 69 (H) 25 - 35 sec [facility] Comment: The recommended therapeutic range for fu ll dose, unfractionated heparin at [facility] is 80 ? 114 seconds. The use [...] Shahid MD HEMATOLOGY ORDERABLES Performing Organization Address City/[facility]/ZIP Code Phon e Number [address] Magnesium (07/07/2017 5:15 AM EST) P athologist Signature Magnesium 0.94 0.69 - 1.[address] [facility] mmol/L [facility] Specimen Anatomical Collection Method Collection Time Receive d Time (Source) Location / / Volume Laterality Blood specimen 07/07/2017 5:15 AM 017 5:34 (specimen) EST AM EST Resulting Agency Comment Spec In Lab Daphne Shahid MD CHEMISTRY ORDERABLES Performing Organization Address City/State/[place] [address] (ABNORMAL) Basic Metabolic Panel (non-fasting) (07/07/2017 5:15 AM EST) P athologist Signature Glucose Lvl 203 (H) 65 - [address] [facility] mg/dL [facility] [facility] Comment: Diabetes: >=200 mg/dL plus symp toms BUN 15 10 - 20 mg/dL [facility] Creatinine 1.09 0.80 - 1.50 mg/dL [facility] Sodium 142 135 - 145 mmol/L [facility] Potassium 4.4 3.5 - 5.0 mmol/L [facility] Comment: Please note: ??Patients with WBC >100,00 0 may have falsely elevated Potassium levels. ??For accurate Potassium quantif ication in these patients send serum separator tube (gold top) for subsequent determinations. ??Contact the Clinical Chemistry Laboratory if there are any qu estions. Chloride 102 98 - 107 mmol/L [facility] CO2 26 22 - 31 mmol/L [facility] Anion Gap 14 5 - 15 mmol/L [facility] Calcium 8.6 8.5 - 10.5 mg/dL [facility] Estimated GFR >60 >=60 [facility] Comment: The reported eGFR should be multiplied b y 1.2 for patients. The MDRD is not an appropriate measure o f renal function for patients with body mass extremes or in patients with acute kidney failure. http://[employer]DHnkdep http://[employer]DHMCnkf Specimen Anatomical Collection Method Collection Time Receive d Time (Source) Location / / Volume Laterality Blood specimen 07/07/2017 5:15 AM 017 5:34 (specimen) EST AM EST Resulting Agency Comment Spec In Lab Daphne Shahid MD CHEMISTRY ORDERABLES Performing Organization Address City/[facility]/ZIP Code Phon e Number [address] (ABNORMAL) Cardiac Enzymes (LEB/CGP) (07/07/2017 5:15 AM EST) athologist Signature Troponin-T 2.07 (H) 0.00 - [place] RYAN 0.00 ng/mL [facility] Comment: The 99th percentile for Troponin T is le ss than 0.01 ng/mL, any detectable cTnT concentration using this assay should be considered elevated. According to the third universal definit ion of myocardial infarction the following criteria with a clinical prese ntation consistent with acute myocardial ischemia meets the diagnosis for a myocardial infarction (DE). Detection of a rise and/or fall of [...] additional sample may be indicated. Reference: Third Rickreall Definition of Myocardial Infarction. Journal of the [employer] 2012;60:1581-98 CK, Total 88 0 - 200 unit/L [facility] Specimen Anatomical Collection Method Collection Time Receive d Time (Source) Location / / Volume Laterality Blood specimen 07/07/2017 5:15 AM 017 5:34 (specimen) EST AM EST Resulting Agency Comment Spec In Lab Daphne Shahid MD CHEMISTRY ORDERABLES Performing Organization Address City/State/ZIP Code Phon e Number [address] POCT Glucose (07/07/2017 5:01 AM EST) athologist Signature POC Glucose 182 65 - 199 [facility] RYAN mg/dL [facility] Comment: Supplemental ranges: <140 mg/dL before meals <180 mg/dL all other times of the day Specimen Anatomical Collection Method Collection Time Receive d Time (Source) Location / / Volume Laterality Blood specimen 07/07/2017 5:01 AM 017 5:01 (specimen) EST AM EST Daphne Shahid MD POINT OF CARE TEST ORDERABLE S Performing Organization Address City/State/ZIP Code Phon e Number [address] POCT Glucose (07/07/2017 4:08 AM EST) athologist Signature POC Glucose 199 65 - 199 [facility] Comment: Supplemental ranges: <140 mg/dL before meals <180 mg/dL all other times of the day Specimen Anatomical Collection Method Collection Time Receive d Time (Source) Location / / Volume Laterality Blood specimen 07/07/2017 4:08 AM 017 4:08 (specimen) EST AM EST Daphne Shahid MD POINT OF CARE TEST ORDERABLE S Performing Organization Address City/State/[place] [address] POCT Glucose (07/07/2017 3:03 AM EST) athologist Signature POC Glucose 188 65 - 199 [facility] mg/dL [facility] Comment: Supplemental ranges: <140 mg/dL before meals <180 mg/dL all other times of the day Specimen Anatomical Collection Method Collection Time Receive d Time (Source) Location / / Volume Laterality Blood specimen 07/07/2017 3:03 AM 017 3:03 (specimen) EST AM EST Daphne Shahid MD POINT OF CARE TEST ORDERABLE S Performing Organization Address City/State/[place] [address] (ABNORMAL) POCT Glucose (07/07/2017 2:08 AM EST) athologist Signature POC Glucose 200 (H) 65 - 199 [facility] Comment: Supplemental ranges: <140 mg/dL before meals <180 mg/dL all other times of the day Specimen Anatomical Collection Method Collection Time Receive d Time (Source) Location / / Volume Laterality Blood specimen 07/07/2017 2:08 AM 017 2:08 (specimen) EST AM EST Daphne Shahid MD POINT OF CARE TEST ORDERABLE S Performing Organization Address City/State/[place] [address] (ABNORMAL) POCT Glucose (07/07/2017 1:31 AM EST) athologist Signature POC Glucose 209 (H) 65 - 199 [facility]dL [facility] Comment: Supplemental ranges: <140 mg/dL before meals <180 mg/dL all other times of the day Specimen Anatomical Collection Method Collection Time Receive d Time (Source) Location / / Volume Laterality Blood specimen 07/07/2017 1:31 AM 017 1:31 (specimen) EST AM EST Daphne Shahid MD POINT OF CARE TEST ORDERABLE S Performing Organization Address City/[facility]/[place] [address] XR Chest PA or [...] Signature POC Glucose 161 65 - [address] [facility] mg/dL [facility] Comment: Supplemental ranges: <140 mg/dL before meals <180 mg/dL all other times of the day Specimen Anatomical Collection Method Collection Time Receive d Time (Source) Location / / Volume Laterality Blood specimen 07/07/2017 12: 7 (specimen) AM EST 12:07 AM EST Daphne Shahid MD POINT OF CARE TEST ORDERABLE S Performing Organization Address City/State/[place] [address] (ABNORMAL) APTT (07/07/2017 12:00 AM EST) athologist Signature PTT 103 (H) 25 - 35 sec [facility] Comment: The recommended therapeutic range for fu ll dose, unfractionated heparin at [facility] is 80 ? 114 seconds. The use [...] Address City/State/ZIP Code Phon e Number [place] RYAN[address] POCT Glucose (07/06/2017 9:55 PM EST) athologist Signature POC Glucose 109 65 - 199 [facility] mg/dL [facility] Comment: Supplemental ranges: <140 mg/dL before meals <180 mg/dL all other times of the day Specimen Anatomical Collection Method Collection Time Receive d Time (Source) Location / / Volume Laterality Blood specimen 07/06/2017 9:55 PM 017 9:55 (specimen) EST PM EST Daphne Shahid MD POINT OF CARE TEST ORDERABLE S Performing Organization Address City/State/ZIP Code Phon e Number [address] POCT Glucose (07/06/2017 9:04 PM EST) athologist Signature POC Glucose 120 65 - 199 [facility] mg/dL [facility] Comment: Supplemental ranges: <140 mg/dL before meals <180 mg/dL all other times of the day Specimen Anatomical Collection Method Collection Time Receive d Time (Source) Location / / Volume Laterality Blood specimen 07/06/2017 9:04 PM 017 9:04 (specimen) EST PM EST Daphne Shahid MD POINT OF CARE TEST ORDERABLE S Performing Organization Address City/State/ZIP Code Phon e Number [address] POCT Glucose (07/06/2017 7:45 PM EST) athologist Signature POC Glucose 158 65 - 199 [facility] mg/dL [facility] Comment: Supplemental ranges: <140 mg/dL before meals <180 mg/dL all other times of the day Specimen Anatomical Collection Method Collection Time Receive d Time (Source) Location / / Volume Laterality Blood specimen 07/06/2017 7:45 PM 017 7:45 (specimen) EST PM EST Daphne Shahid MD POINT OF CARE TEST ORDERABLE S Performing Organization Address City/State/[place] [address] Potassium (07/06/2017 7:40 PM EST) athologist Signature Potassium 3.9 3.5 - 5.[address] [facility] mmol/L [facility] Comment: Please note: ??Patients with WBC [...] Organization Address City/State/ZIP Code Phon e Number [place] [id number] (ABNORMAL) Cardiac Enzymes (LEB/CGP) (07/06/2017 7:40 PM EST) athologist Signature Troponin-T 2.27 (H) 0.00 - [facility] 0.00 ng/mL [facility] Comment: The 99th percentile for Troponin T is le ss than 0.01 ng/mL, any detectable cTnT concentration using this assay should be considered elevated. According to the third universal definit ion of myocardial infarction the following criteria with a clinical prese ntation consistent with acute myocardial ischemia meets the diagnosis for a myocardial infarction (DE). Detection of a rise and/or fall of [...] additional sample may be indicated. Reference: Third Rickreall Definition of Myocardial Infarction. Journal of the [place] 2012;60:1581-98 CK, Total 93 0 - 200 unit/L [facility] Specimen Anatomical Collection Method Collection Time Receive d Time (Source) Location / / Volume Laterality Blood specimen 07/06/2017 7:40 PM 017 7:52 (specimen) EST PM EST Resulting Agency Comment Spec In Lab Daphne Shahid MD CHEMISTRY ORDERABLES Performing Organization Address City/[facility]/[place] [address] (ABNORMAL) POCT Glucose (07/06/2017 7:13 PM EST) P athologist Signature POC Glucose 200 (H) 65 - [address] [facility] mg/dL [facility] Comment: Supplemental ranges: <140 mg/dL before meals <180 mg/dL all other times of the day Specimen Anatomical Collection Method Collection Time Receive d Time (Source) Location / / Volume Laterality Blood specimen 07/06/2017 7:13 PM 017 7:13 (specimen) EST PM EST Daphne Shahid MD POINT OF CARE TEST ORDERABLE S Performing Organization Address [facility] [place] [address] (ABNORMAL) APTT (07/06/2017 6:15 PM EST) P athologist Signature PTT 94 (H) 25 - 35 sec [facility] Comment: The recommended therapeutic range for fu ll dose, unfractionated heparin at [facility] is 80 ? 114 seconds. The use [...] Shahid MD HEMATOLOGY ORDERABLES Performing Organization Address City/[facility]/[place] [address] (ABNORMAL) POCT Glucose (07/06/2017 6:03 PM EST) athologist Signature POC Glucose 236 (H) 65 - 199 [facility] mg/dL [facility] Comment: Supplemental ranges: <140 mg/dL before meals <180 mg/dL all other times of the day Specimen Anatomical Collection Method Collection Time Receive d Time (Source) Location / / Volume Laterality Blood specimen 07/06/2017 6:03 PM 017 6:03 (specimen) EST PM EST Daphne Shahid MD POINT OF CARE TEST ORDERABLE S Performing Organization Address City/State/ZIP Code Phon e Number [address] (ABNORMAL) POCT Glucose (07/06/2017 5:01 PM EST) athologist Signature POC Glucose 235 (H) 65 - 199 [facility] mg/dL [facility] Comment: Supplemental ranges: <140 mg/dL before meals <180 mg/dL all other times of the day Specimen Anatomical Collection Method Collection Time Receive d Time (Source) Location / / Volume Laterality Blood specimen 07/06/2017 5:01 PM 017 5:01 (specimen) EST PM EST Daphne Shahid MD POINT OF CARE TEST ORDERABLE S Performing Organization Address City/State/[place] [address] (ABNORMAL) POCT Glucose (07/06/2017 4:06 PM EST) athologist Signature POC Glucose 202 (H) 65 - 199 [facility] mg/dL [facility] Comment: Supplemental ranges: <140 mg/dL before meals <180 mg/dL all other times of the day Specimen Anatomical Collection Method Collection Time Receive d Time (Source) Location / / Volume Laterality Blood specimen 07/06/2017 4:06 PM 017 4:06 (specimen) EST PM EST Daphne Shahid MD POINT OF CARE TEST ORDERABLE S Performing Organization Address City/State/ZIP Code Phon e Number [address] POCT Glucose (07/06/2017 2:59 PM EST) athologist Signature POC Glucose 178 65 - 199 [facility] mg/dL [facility] Comment: Supplemental ranges: <140 mg/dL before meals <180 mg/dL all other times of the day Specimen Anatomical Collection Method Collection Time Receive d Time (Source) Location / / Volume Laterality Blood specimen 07/06/2017 2:59 PM 017 2:59 (specimen) EST PM EST Daphne Shahid MD POINT OF CARE TEST ORDERABLE S Performing Organization Address City/State/ZIP Code Phon e Number [address] (ABNORMAL) Cardiac Enzymes (LEB/CGP) (07/06/2017 2:10 PM EST) athologist Signature Troponin-T 2.34 (H) 0.00 - [facility] 0.00 ng/mL [facility] Comment: The 99th percentile for Troponin T is le ss than 0.01 ng/mL, any detectable cTnT concentration using this assay should be considered elevated. According to the third universal definit ion of myocardial infarction the following criteria with a clinical prese ntation consistent with acute myocardial ischemia meets the diagnosis for a myocardial infarction (DE). Detection of a rise and/or fall of [...] additional sample may be indicated. Reference: Third Rickreall Definition of Myocardial Infarction. Journal of the [employer] 2012;60:1581-98 CK, Total 101 0 - 200 unit/L [facility] Specimen Anatomical Collection Method Collection Time Receive d Time (Source) Location / / Volume Laterality Blood specimen 07/06/2017 2:10 PM 017 2:26 (specimen) EST PM EST Resulting Agency Comment Spec In Lab Daphne Shahid MD CHEMISTRY ORDERABLES Performing Organization Address City/[facility]/ZIP Code Phon e Number [address] POCT Glucose (07/06/2017 2:08 PM EST) athologist Signature POC Glucose 192 65 - 199 [facility] mg/dL [facility] Comment: Supplemental ranges: <140 mg/dL before meals <180 mg/dL all other times of the day Specimen Anatomical Collection Method Collection Time Receive d Time (Source) Location / / Volume Laterality Blood specimen 07/06/2017 2:08 PM 017 2:08 (specimen) EST PM EST Daphne Shahid MD POINT OF CARE TEST ORDERABLE S Performing Organization Address City/[facility]/ZIP Code Phon e Number [address] POCT Glucose (07/06/2017 1:04 PM EST) athologist Signature POC Glucose 162 65 - 199 [facility] mg/dL [facility] Comment: Supplemental ranges: <140 mg/dL before meals <180 mg/dL all other times of the day Specimen Anatomical Collection Method Collection Time Receive d Time (Source) Location / / Volume Laterality Blood specimen 07/06/2017 1:04 PM 017 1:04 (specimen) EST PM EST Daphne Shahid MD POINT OF CARE TEST ORDERABLE S Performing Organization Address City/State/ZIP Code Phon e Number [address] POCT Glucose (07/06/2017 12:05 PM EST) athologist Signature POC Glucose 196 65 - 199 [facility] mg/dL [facility] Comment: Supplemental ranges: <140 mg/dL before meals <180 mg/dL all other times of the day Specimen Anatomical Collection Method Collection Time Receive d Time (Source) Location / / Volume Laterality Blood specimen 07/06/2017 12:05 7 (specimen) PM EST 12:05 PM EST Daphne Shahid MD POINT OF CARE TEST ORDERABLE S Performing Organization Address [facility]/[place] [address] EKG 12 Lead (07/06/2017 12:00 PM EST) Component Value Ref Range Test Analysis Performed Pathologis t Method Time At Signature Ventricular rate 91 BPM MUSE SYSTEM Atrial Rate 91 BPM MUSE SYSTEM P-R Interval 140 ms MUSE SYSTEM QRS Duration 94 ms MUSE SYSTEM Q-T Interval 394 ms MUSE SYSTEM QTC Calculated 484 ms MUSE SYSTEM (Bezet) Calculated P [place] 36 degrees MUSE SYSTEM Calculated R [place] -19 degrees MUSE SYSTEM Calculated T [place] 104 degrees MUSE SYSTEM INTERPRETATION Normal sinus rhythm MUSE SYSTEM 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) ST & T wave abnormality, consider lateral ischemia Abnormal ECG When compared with ECG of 05-JUL-2017 20:39, No significant change was found Confirmed by MD Luci, Taurus Braun ([id number]) on 07/06/2017 5:07:33 PM Specimen Anatomical Collection Method Collection Time Receive d Time (Source) Location / / Volume Laterality 07/06/2017 12:00 07/06/2017 5:07 PM EST PM EST Daphne Shahid MD ECG ORDERABLES Performing Organization Address [facility]/ZIP Code Phon e Number MUSE SYSTEM ABORH Recheck Status (07/06/2017 12:00 PM EST) [facility] Method Time Signature ABORH Type Completed [facility] LABORATORY Specimen Anatomical Collection Method Collection Time Receive d Time (Source) Location / / Volume Laterality Blood specimen 07/06/2017 12:00 7 (specimen) PM EST 12:24 PM EST Resulting Agency Comment Spec In Lab Daphne Shahid MD BLOOD BANK ORDERABLES Performing Organization Address City/[facility]/[place] [address] Antibody screen (07/06/2017 12:00 PM EST) [facility] Method Time Signature Ab Screen Negative [facility] LABORATORY Expires at 07/09/[address] [facility] [id number] on: [facility] Specimen Anatomical Collection Method Collection Time Receive d Time (Source) Location / / Volume Laterality Blood specimen 07/06/2017 12:00 7 (specimen) PM EST 12:24 PM EST Resulting Agency Comment Spec In Lab Daphne Shahid MD BLOOD BANK ORDERABLES Performing Organization Address City/[facility]/ZIP Code Phon e Number [address] ABO/Rh Typing (07/06/2017 12:00 PM EST) P athologist Signature ABORh Type O Pos [facility] Specimen Anatomical Collection Method Collection Time Receive d Time (Source) Location / / Volume Laterality Blood specimen 07/06/2017 12:00 7 (specimen) PM EST 12:24 PM EST Resulting Agency Comment Spec In Lab Daphne Shahid MD BLOOD BANK ORDERABLES Performing Organization Address City/[facility] Phon e Number [address] Prothrombin Time (07/06/2017 11:24 AM EST) P athologist Signature PT 13.3 11.8 - 14.0 [facility] LABORATORY INR 1.0 0.9 - 1.1 [facility] [...] Shahid MD HEMATOLOGY ORDERABLES Performing Organization Address City/[facility]/[place] [address] (ABNORMAL) APTT (07/06/2017 11:24 AM EST) athologist Signature PTT 52 (H) 25 - 35 sec [facility] Comment: The recommended therapeutic range for fu ll dose, unfractionated heparin at [facility] is 80 ? 114 seconds. The use [...] Shahid MD HEMATOLOGY ORDERABLES Performing Organization Address [facility]/ZIP Code Phon e Number [address] POCT Glucose (07/06/2017 11:02 AM EST) athologist Signature POC Glucose 187 65 - 199 [facility] Comment: Supplemental ranges: <140 mg/dL before meals <180 mg/dL all other times of the day Specimen Anatomical Collection Method Collection Time Receive d Time (Source) Location / / Volume Laterality Blood specimen 07/06/2017 11:02 7 (specimen) AM EST 11:02 AM EST Daphne Shahid MD POINT OF CARE TEST ORDERABLE S Performing Organization Address City/State/[place] [address] POCT Glucose (07/06/2017 10:18 AM EST) athologist Signature POC Glucose 193 65 - 199 [facility] mg/dL [facility] Comment: Supplemental ranges: <140 mg/dL before meals <180 mg/dL all other times of the day Specimen Anatomical Collection Method Collection Time Receive d Time (Source) Location / / Volume Laterality Blood specimen 07/06/2017 10:18 7 (specimen) AM EST 10:18 AM EST Daphne Shahid MD POINT OF CARE TEST ORDERABLE S Performing Organization Address City/State/[place] [address] POCT Glucose (07/06/2017 9:25 AM EST) athologist Signature POC Glucose 182 65 - 199 [place] mg/dL [facility] Comment: Supplemental ranges: <140 mg/dL before meals <180 mg/dL all other times of the day Specimen Anatomical Collection Method Collection Time Receive d Time (Source) Location / / Volume Laterality Blood specimen 07/06/2017 9:25 AM 017 9:25 (specimen) EST AM EST Daphne Shahid MD POINT OF CARE TEST ORDERABLE S Performing Organization Address City/State/[place] [address] (ABNORMAL) Cardiac Enzymes (LEB/CGP) (07/06/2017 8:10 AM EST) athologist Signature Troponin-T 2.26 (H) 0.00 - [place] DAVIS 0.00 ng/mL [facility] Comment: The 99th percentile for Troponin T is le ss than 0.01 ng/mL, any detectable cTnT concentration using this assay should be considered elevated. According to the third universal definit ion of myocardial infarction the following criteria with a clinical prese ntation consistent with acute myocardial ischemia meets the diagnosis for a myocardial infarction (DE). Detection of a rise and/or fall of [...] additional sample may be indicated. Reference: Third Rickreall Definition of Myocardial Infarction. Journal of the [place] 2012;60:1581-98 CK, Total 124 0 - 200 unit/L [facility] Specimen Anatomical Collection Method Collection Time Receive d Time (Source) Location / / Volume Laterality Blood specimen 07/06/2017 8:10 AM 017 8:23 (specimen) EST AM EST Resulting Agency Comment Spec In Lab Daphne Shahid MD CHEMISTRY ORDERABLES Performing Organization Address City/[facility]/[place] [address] Magnesium (07/06/2017 8:10 AM EST) P athologist Signature Magnesium 0.84 0.69 - 1.[address] [facility] mmol/L [facility] Specimen Anatomical Collection Method Collection Time Receive d Time (Source) Location / / Volume Laterality Blood specimen 07/06/2017 8:10 AM 017 8:21 (specimen) EST AM EST Resulting Agency Comment Spec In Lab Daphne Shahid MD CHEMISTRY ORDERABLES Performing Organization Address City/[facility]/[place] [address] (ABNORMAL) Basic Metabolic Panel (non-fasting) (07/06/2017 8:10 AM EST) athologist Signature Glucose Lvl 199 65 - [address] [facility] mg/dL [facility] Comment: Diabetes: >=200 mg/dL plus symp toms BUN 16 10 - 20 mg/dL [facility] Creatinine 1.04 0.80 - 1.50 mg/dL [facility] Sodium 141 135 - 145 mmol/L [facility] Estimated GFR >60 >=60 [facility] Comment: The reported eGFR should be multiplied b y 1.2 for patients. The MDRD is not an appropriate measure o f renal function for patients with body mass extremes or in patients with acute kidney failure. http://[employer])/DHnkdep http://[employer])/DHMCnkf Specimen Anatomical Collection Method Collection Time Receive d Time (Source) Location / / Volume Laterality Blood specimen 07/06/2017 8:10 AM 017 8:21 (specimen) EST AM EST Resulting Agency Comment Spec In Lab Daphne Shahid MD CHEMISTRY ORDERABLES Performing Organization Address City/[facility]/ZIP Code Phon e Number [address] POCT Glucose (07/06/2017 7:34 AM EST) P athologist Signature POC Glucose 198 65 - 199 [facility]dL [facility] Comment: Supplemental ranges: <140 mg/dL before meals <180 mg/dL all other times of the day Specimen Anatomical Collection Method Collection Time Receive d Time (Source) Location / / Volume Laterality Blood specimen 07/06/2017 7:34 AM 017 7:34 (specimen) EST AM EST Daphne Shahid MD POINT OF CARE TEST ORDERABLE S Performing Organization Address City/[facility]/ZIP Code Phon e Number [address] POCT Glucose (07/06/2017 7:03 AM EST) P athologist Signature POC Glucose 181 65 - 199 [facility]dL [facility] Comment: Supplemental ranges: <140 mg/dL before meals <180 mg/dL all other times of the day Specimen Anatomical Collection Method Collection Time Receive d Time (Source) Location / / Volume Laterality Blood specimen 07/06/2017 7:03 AM 12/12/2 017 7:03 (specimen) EST AM EST Daphne Shahid MD POINT OF CARE TEST ORDERABLE S Performing Organization Address City/State/ZIP Code Phon e Number [place] [phone]ORY [address] XR Chest PA or [...] Glucose 172 65 - 199 [facility] mg[facility]dL [facility] Comment: Supplemental ranges: <140 mg/dL before meals <180 mg/dL all other times of the day Specimen Anatomical Collection Method Collection Time Receive d Time (Source) Location / / Volume Laterality Blood specimen 07/06/2017 6:21 AM 017 6:21 (specimen) EST AM EST Daphne Shahid MD POINT OF CARE TEST ORDERABLE S Performing Organization Address City/State/ZIP Code Phon e Number [address] POCT Glucose (07/06/2017 5:08 AM EST) athologist Signature POC Glucose 154 65 - 199 [facility] mg/dL [facility] Comment: Supplemental ranges: <140 mg/dL before meals <180 mg/dL all other times of the day Specimen Anatomical Collection Method Collection Time Receive d Time (Source) Location / / Volume Laterality Blood specimen 07/06/2017 5:08 AM 017 5:08 (specimen) EST AM EST Daphne Shahid MD POINT OF CARE TEST ORDERABLE S Performing Organization Address City/State/ZIP Code Phon e Number [address] POCT Glucose (07/06/2017 4:05 AM EST) athologist Signature POC Glucose 142 65 - 199 [facility]/dL [facility] Comment: Supplemental ranges: <140 mg/dL before meals <180 mg/dL all other times of the day Specimen Anatomical Collection Method Collection Time Receive d Time (Source) Location / / Volume Laterality Blood specimen 07/06/2017 4:05 AM 017 4:05 (specimen) EST AM EST Daphne Shahid MD POINT OF CARE TEST ORDERABLE S Performing Organization Address City/State/[place] [address] POCT Glucose (07/06/2017 3:00 AM EST) [facility] P[facility] Glucose 116 65 - [address] [facility] mg/dL [facility] Comment: Supplemental ranges: <140 mg/dL before meals <180 mg/dL all other times of the day Specimen Anatomical Collection Method Collection Time Receive d Time (Source) Location / / Volume Laterality Blood specimen 07/06/2017 3:00 AM 017 3:00 (specimen) EST AM EST Daphne Shahid MD POINT OF CARE TEST ORDERABLE S Performing Organization Address City/[facility]/ZIP [facility] Phon e Number [address] Potassium (07/06/2017 2:20 AM EST) [facility] Potassium 3.9 3.5 - 5.[address] [facility] mmol/L [facility] Comment: Please note: ??Patients with WBC [...] Shahid MD CHEMISTRY ORDERABLES Performing Organization Address City/[facility]/ZIP [facility] Phon e Number [address] Differential, Automated (07/06/2017 2:20 AM EST) [facility] Neutrophils % 72.9 % [facility] Neutr Abs (ANC) 5.53 1.70 - [facility] 6.10 [facility] x10(3)/[facility] LABORATORY Lymphocytes % 16.4 % [facility] Lymphocytes Abs 1.2 0.9 - 3.[address] [facility] x10(3)/[facility] LABORATORY Monocytes % 9.4 % [facility] Monocyte Abs 0.7 0.3 - 0.[address] [facility] x10(3)/[facility] LABORATORY Eosinophils % 0.5 % [facility] Eosinophils Abs 0.0 0.0 - 0.[address] [facility] x10(3)/[facility] LABORATORY Basophils % 0.4 % [facility] Basophils Abs 0.0 0.0 - 0.[address] [facility] x10(3)/[facility] LABORATORY Immature Gran % 0.40 % [...] Melisa Gran Abs 0.03 0.00 - 0.04 x10(3)/[facility] MAR Y [facility] Specimen Anatomical Collection Method Collection Time Receive d Time (Source) Location / / Volume Laterality Blood specimen 07/06/2017 2:20 AM 017 2:33 (specimen) EST AM EST Resulting Agency Comment Spec In Lab Daphne Shahid MD HEMATOLOGY ORDERABLES Performing Organization Address City/State/[place] [address] (ABNORMAL) Hemogram (07/06/2017 2:20 AM EST) Analysis Performed At Patho logist Time Signature WBC 7.6 4.0 - 9.[address] [facility] x10(3)/[facility] LABORATORY RBC 4.52 (L) 4.58 - [facility] 5.54 [facility] x10(6)/[facility] LABORATORY Hemoglobin 13.4 (L) 13.7 - [facility] 16.5 gm/dL [facility] Hematocrit 39.7 (L) 40.5 - [facility] 48.5 % [facility] MCV 87.8 82.9 - [facility] 93.1 fL [facility] MCH 29.6 27.5 - [facility] 32.1 pg [facility] MCHC 33.8 32.0 - [facility] 35.7 gm/dL [facility] Platelets 189 145 - 357 [facility] x10(3)/[facility] LABORATORY RDWSD 45.6 (H) 36.0 - [place] RYAN 45.0 [facility] LABORATORY RDWCV 14.3 (H) 11.4 - [facility] RYAN 13.8 % [facility] MPV 9.1 7.6 - 12.9 [facility] LABORATORY nRBC % Auto 0.0 % [facility] nRBC Abs Auto 0.000 0.000 - [place] DAV[place] 0.000 [facility] x10(3)/[facility] LABORATORY Specimen Anatomical Collection Method Collection Time Receive d Time (Source) Location / / Volume Laterality Blood specimen 07/06/2017 2:20 AM 017 2:33 (specimen) EST AM EST Resulting Agency Comment Spec In Lab Daphne Shahid MD HEMATOLOGY ORDERABLES Performing Organization Address City/[facility]/[place] [address] (ABNORMAL) APTT (07/06/2017 2:20 AM EST) P athologist Signature PTT 52 (H) 25 - 35 sec [facility] Comment: The recommended therapeutic range for fu ll dose, unfractionated heparin at [facility] is 80 ? 114 seconds. The use [...] Shahid MD HEMATOLOGY ORDERABLES Performing Organization Address City/[facility]/ZIP Code Phon e Number [address] POCT Glucose (07/06/2017 2:20 AM EST) P athologist Signature POC Glucose 115 65 - [address] [facility] mg/dL [facility] Comment: Supplemental ranges: <140 mg/dL before meals <180 mg/dL all other times of the day Specimen Anatomical Collection Method Collection Time Receive d Time (Source) Location / / Volume Laterality Blood specimen 07/06/2017 2:20 AM 017 2:20 (specimen) EST AM EST Daphne Shahid MD POINT OF CARE TEST ORDERABLE S Performing Organization Address City/State/[place] [address] (ABNORMAL) Cardiac Enzymes (LEB/CGP) (07/06/2017 2:20 AM EST) athologist Signature Troponin-T 2.13 (H) 0.00 - [facility] 0.00 ng/mL [facility] Comment: The 99th percentile for Troponin T is le ss than 0.01 ng/mL, any detectable cTnT concentration using this assay should be considered elevated. According to the third universal definit ion of myocardial infarction the following criteria with a clinical prese ntation consistent with acute myocardial ischemia meets the diagnosis for a myocardial infarction (DE). Detection of a rise and/or fall of [...] additional sample may be indicated. Reference: Third Rickreall Definition of Myocardial Infarction. Journal of the [employer] 2012;60:1581-98 CK, Total 129 0 - 200 unit/L [facility] Specimen Anatomical Collection Method Collection Time Receive d Time (Source) Location / / Volume Laterality Blood specimen 07/06/2017 2:20 AM 017 2:33 (specimen) EST AM EST Resulting Agency Comment Spec In Lab Daphne Shahid MD CHEMISTRY ORDERABLES Performing Organization Address City/State/ZIP Code Phon e Number [place] [phone] LAB[address]ORY Drive (ABNORMAL) Hemoglobin A1c (07/06/2017 2:20 AM EST) Analysis Performed At Patho logist Time Signature Hemoglobin A1C 6.8 (H) 4.3 - 5.6 [facility] [...] [id number] Est Avg Gluc See note mg/dL [facility] [...] into estimated average glucose values. ??Diabetes Care 2008:31(8):5651-6312. Specimen Anatomical Collection Method Collection Time Receive d Time (Source) Location / / Volume Laterality Blood specimen 07/06/2017 2:20 AM 017 2:34 (specimen) EST AM EST Resulting Agency Comment Spec In Lab Daphne Shahid MD CHEMISTRY ORDERABLES Performing Organization Address City/State/[place] [address] (ABNORMAL) Lipid Panel (07/06/2017 2:20 AM EST) [facility] gist Method Time Signature Chol, Total 150 <=239 [facility] mg/dL [facility] Triglycerides 129 <=199 [facility] mg/dL [facility] HDL 32 (L) >=40 [facility] mg/dL [facility] LDL Cholesterol 92 <=190 [facility] mg/dL [facility] Chol/HDL Ratio 4.7 ratio [facility] Lipid See Note [place] Interpretation [facility] Comment: Lipid management should be guided by a p atient? s ASCVD risk, goals and preferences. ACC/AHA Guidelines recommend high intens ity statin if clinical ASCVD or LDL greater than or equal to 190 mg/dL. http://[employer]Ahead/NZE-NUC-Wnacmpexw Adults aged 40-75 with LDL 70-189 mg/dL should have their 10 year ASCVD risk estimated with the ACC/AHA ASCVD risk es timator http://tools.acc.org/BJSKG-Khmi-Oiukyxak r/ Statin should be discussed if risk [...] Shahid MD CHEMISTRY ORDERABLES Performing Organization Address City/[facility]/ZIP Code Phon e Number [address] POCT Glucose (07/06/2017 1:09 AM EST) P athologist Signature POC Glucose 121 65 - 199 [place] mg/dL [facility] Comment: Supplemental ranges: <140 mg/dL before meals <180 mg/dL all other times of the day Specimen Anatomical Collection Method Collection Time Receive d Time (Source) Location / / Volume Laterality Blood specimen 07/06/2017 1:09 AM 017 1:09 (specimen) EST AM EST Daphne Shahid MD POINT OF CARE TEST ORDERABLE S Performing Organization Address City/[facility]/[place] [address] POCT Glucose (07/06/2017 12:06 AM EST) athologist Signature POC Glucose 147 65 - 199 [facility] RYAN mg/dL [facility] Comment: Supplemental ranges: <140 mg/dL before meals <180 mg/dL all other times of the day Specimen Anatomical Collection Method Collection Time Receive d Time (Source) Location / / Volume Laterality Blood specimen 07/06/2017 12:06 7 (specimen) AM EST 12:06 AM EST Daphne Shahid MD POINT OF CARE TEST ORDERABLE S Performing Organization Address City/[facility]/[place] [address] (ABNORMAL) POCT Glucose (07/05/2017 10:56 PM EST) P athologist Signature POC Glucose 200 (H) 65 - 199 [facility] mg/dL [facility] Comment: Supplemental ranges: <140 mg/dL before meals <180 mg/dL all other times of the day Specimen Anatomical Collection Method Collection Time Receive d Time (Source) Location / / Volume Laterality Blood specimen 07/05/2017 10:56 7 (specimen) PM EST 10:56 PM EST Daphne Shahid MD POINT OF CARE TEST ORDERABLE S Performing Organization Address City/[facility]/[place] [address] (ABNORMAL) POCT Glucose (07/05/2017 10:05 PM EST) P athologist Signature POC Glucose 225 (H) 65 - 199 [facility] Comment: Supplemental ranges: <140 mg/dL before meals <180 mg/dL all other times of the day Specimen Anatomical Collection Method Collection Time Receive d Time (Source) Location / / Volume Laterality Blood specimen 07/05/2017 10:05 7 (specimen) PM EST 10:05 PM EST Daphne Shahid MD POINT OF CARE TEST ORDERABLE S Performing Organization Address City/[facility]/[place] [address] (ABNORMAL) POCT Glucose (07/05/2017 9:02 PM EST) P athologist Signature POC Glucose 301 (H) 65 - 199 [facility] mg/dL [facility] Comment: Supplemental ranges: <140 mg/dL before meals <180 mg/dL all other times of the day Specimen Anatomical Collection Method Collection Time Receive d Time (Source) Location / / Volume Laterality Blood specimen 07/05/2017 9:02 PM 017 9:02 (specimen) EST PM EST Daphne Shahid MD POINT OF CARE TEST ORDERABLE S Performing Organization Address City/State/[place] [address] XR Chest PA or [...] 474 ms MUSE SYSTEM (Bezet) Calculated P [place] 50 degrees MUSE SYSTEM Calculated R [place] -28 degrees MUSE SYSTEM Calculated T [place] 90 degrees MUSE SYSTEM INTERPRETATION Sinus tachycardia [...] (ABNORMAL) Differential, Automated (07/05/2017 8:20 PM EST) [facility] Method Time Signature Neutrophils % 88.4 % [facility] Neutr Abs (ANC) 9.08 (H) 1.70 - [facility] 6.10 [facility] x10(3)/[facility] L LABORATORY Lymphocytes % 7.0 % [facility] Lymphocytes Abs 0.7 (L) 0.9 - 3.[address] [facility] x10(3)/[facility] LABORATORY Monocytes % 3.7 % [facility] Monocyte Abs 0.4 0.3 - 0.[address] [facility] x10(3)/[facility] LABORATORY Eosinophils % 0.1 % [facility] Eosinophils Abs 0.0 0.0 - 0.[address] [facility] x10(3)/[facility] LABORATORY Basophils % 0.2 % [facility] Basophils Abs 0.0 0.0 - 0.[address] [facility] x10(3)/[facility] LABORATORY Immature Gran % 0.60 % [...] Organization Address City/State/[place] [address] (ABNORMAL) Hemogram (07/05/2017 8:20 PM EST) Analysis Performed At Patho logist Time Signature WBC 10.3 (H) 4.0 - 9.[address] [facility] x10(3)/[facility] LABORATORY RBC 4.64 4.58 - [place] 5.54 [facility] x10(6)/[facility] LABORATORY Hemoglobin 14.1 13.7 - [facility] 16.5 gm/dL [facility] Hematocrit 40.8 40.5 - [facility] 48.5 % [facility] MCV 87.9 82.9 - [facility] 93.1 [facility] LABORATORY MCH 30.4 27.5 - [facility] 32.1 pg [facility] MCHC 34.6 32.0 - [facility] 35.7 gm/dL [facility] Platelets 204 145 - [address] [facility] x10(3)/[facility] LABORATORY RDWSD 46.1 (H) 36.0 - [facility] 45.0 [facility] LABORATORY RDWCV 14.5 (H) 11.4 - [facility] 13.8 % [facility]ORY MPV 9.7 7.6 - 12.9 [facility] LABORATORY nRBC % Auto 0.0 % [facility] nRBC Abs Auto 0.000 0.000 - [facility] 0.000 [facility] x10(3)/[facility] LABORATORY Specimen Anatomical Collection Method Collection Time Receive d Time (Source) Location / / Volume Laterality Blood specimen 07/05/2017 8:20 PM 017 8:27 (specimen) EST PM EST Resulting Agency Comment Spec In Lab Daphne Shahid MD HEMATOLOGY ORDERABLES Performing Organization Address City/State/[place] [address] APTT (07/05/2017 8:20 PM EST) P athologist Signature PTT 32 25 - 35 sec [facility] Comment: The recommended therapeutic range for fu ll dose, unfractionated heparin at [facility] is 80 ? 114 seconds. The use [...] Organization Address City/State/[place] [address] (ABNORMAL) Cardiac Enzymes (LEB/CGP) (07/05/2017 8:20 PM EST) P athologist Signature Troponin-T 2.11 (H) 0.00 - [facility] 0.00 ng/mL [facility] Comment: The 99th percentile for Troponin T is le ss than 0.01 ng/mL, any detectable cTnT concentration using this assay should be considered elevated. According to the third universal definit ion of myocardial infarction the following criteria with a clinical prese ntation consistent with acute myocardial ischemia meets the diagnosis for a myocardial infarction (DE). Detection of a rise and/or fall of [...] additional sample may be indicated. Reference: Third Rickreall Definition of Myocardial Infarction. Journal of the [employer] 2012;60:1581-98 CK, Total 149 0 - 200 unit/L [facility] Specimen Anatomical Collection Method Collection Time Receive d Time (Source) Location / / Volume Laterality Blood specimen 07/05/2017 8:20 PM 017 8:27 (specimen) EST PM EST Resulting Agency Comment Spec In Lab Daphne Shahid MD CHEMISTRY ORDERABLES Performing Organization Address City/[facility]/ZIP Code Phon e Number [address] (ABNORMAL) Magnesium (07/05/2017 8:20 PM EST) P athologist Signature Magnesium 0.68 (L) 0.69 - 1.[address] [facility] mmol/L [facility] Specimen Anatomical Collection Method Collection Time Receive d Time (Source) Location / / Volume Laterality Blood specimen 07/05/2017 8:20 PM 017 8:27 (specimen) EST PM EST Resulting Agency Comment Spec In Lab Daphne Shahid MD CHEMISTRY ORDERABLES Performing Organization Address City/[facility] [place] [address] (ABNORMAL) Basic Metabolic Panel (non-fasting) (07/05/2017 8:20 PM EST) athologist Signature Glucose Lvl 321 (H) 65 - [address] [facility] mg/dL [facility] Comment: Diabetes: >=200 mg/dL plus symp toms BUN 20 10 - 20 mg/dL [facility] Creatinine 1.12 0.80 - 1.50 mg/dL [facility] Sodium 139 135 - 145 mmol/L [facility] Potassium 3.8 3.5 - 5.0 mmol/L [facility] [...] mmol/L [facility] Anion Gap 14 5 - 15 mmol/L [facility] Calcium 8.1 (L) 8.5 - 10.5 mg/dL [facility] Estimated GFR >60 >=60 [facility] Comment: The reported eGFR should be multiplied b y 1.2 for patients. The MDRD is not an appropriate measure o f renal function for patients with body mass extremes or in patients with acute kidney failure. http://[employer])/DHnkdep http://[employer])/DHMCnkf Specimen Anatomical Collection Method Collection Time Receive d Time (Source) Location / / Volume Laterality Blood specimen 07/05/2017 8:20 PM 017 8:27 (specimen) EST PM EST Resulting Agency Comment Spec In Lab Daphne Shahid MD CHEMISTRY ORDERABLES Performing Organization Address City/State/ZIP Code Phon e Number [address] (ABNORMAL) POCT Glucose (07/05/2017 7:32 PM EST) P athologist Signature POC Glucose 296 (H) 65 - [address] [facility] mg/dL [facility] Comment: Supplemental ranges: <140 mg/dL before meals <180 mg/dL all other times of the day Specimen Anatomical Collection Method Collection Time Receive d Time (Source) Location / / Volume Laterality Blood specimen 07/05/2017 7:32 PM 017 7:32 (specimen) EST PM EST Daphne Shahid MD POINT OF CARE TEST ORDERABLE S Performing Organization Address City/State/[place] [address] CARDIAC CATHETERIZATION (07/05/2017 6:47 PM EST) Specimen (Source) Anatomical Location Collection Method / Collectio n Time Received Time / Laterality Volume Narrative CARDIOMAC SYSTEM - 07/05/2017 7:27 PM ES T ?[facility] ? Cardiac Cathete rization/Intervention Report ? Patient Name: Natalya, Gregory ? Procedure Date: 07/05/2017 ? A #: [id number] ? Primary Physician: Clarisa, Jet T ? Case #: [id number] ? File Name: [id number] ? Catheterization Order Number: [id number] ? [facility] ? Final Report [place], [place] ? Patient Name: ? Gregory Natalya ?ID#: ?[id number] ? : ?1945 ? Procedure Date: ? July 05 ?Case #: ? [id number] ? Room: ? 6 ? Case Physician: [...] presented with: non -STEMI (w/i 7 days). [place] ?[employer] angina c lass was IV. 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 ? Jet Mckenna M.D. ? Electronically Signed by: Jet bunch M.D. ? Report Finalized: 07/05/2017 ??19:23 ? Report Last Ammended: 10/26/2017 ??10:29 ? Procedure Note Jet Mckenna MD - 10/26/2017Formatt ing of this note might be different from the original. [facility] Cardiac Catheterization/Intervention Re port Patient Name: Gregory Hoang Procedure Date: 07/05/2017 A #: [id number] Primary Physician: Jet Mckenna Case #: [id number] File Name: [id number] Catheterization Order Number: [id number] [facility] Final Report [place], [place] Patient Name: Gregory Hoang ID#: [id number] [id number] : 1945 Procedure Date: July 05, [...] presented with: non-STEMI ( w/i 7 days). [place] [employer] angina class was IV. 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 Jet Mckenna M.D. Electronically Signed by: [...] Mccollum ? (Age): 1945(72y) Med Rec#: ? [id number] ?Sex: ?M ? Site Loc: ? [facility] ?Ht / Wt: ??173(cm)/86(kg) Pt. Loc: ?CCU ? BSA: ?2 Study Date: ?? 07/05/2017 ?Pt. Type: Inpatient Tape: ? Referring: Daphne Shahid ([id number]) Referring: MANDA ALCANTAR Reading: Blade Preston ([id number]) Block Tester: Dayami Paula BA, RDCS Diagnosis: *ICD-10-PCS Non-ST [...] E-wave Vmax ?0.8 ?m/sec ? MV deceleration [id number] ?msec ? MV A-wave Vmax ?0.8 ?m/sec [...] ? Mid-Inferior ?Akinetic ? Mid-Inferoseptal ?Hypokinetic ? [place]-Septal ? Akinetic ? [place]-Anterior ? Hypokinetic ? [place]-Lateral ?Hypokinetic ? [place]-Inferior ? Akinetic ? [place]-Tip ?Akinetic ? This report has been electronically sign ed by: _ Blade Preston MD ? 07/06/2017 08 :53:15 Images reviewed and interpretation verif ied [facility] Cardiac Ultrasound Laboratory Procedure Note Blade Preston MD - 07/06/2017Formatt ing of this note might be different from the original. Procedure: Transthoracic Echocardiogram Patient: NATALYA MCBRIDE(Age): [birth year]72y) Med Rec#: [id number] Sex: M Site Loc: [facility] Ht / Wt: 173(cm)/86(kg) Pt. Loc: CCU BSA: 2 Study Date: 07/05/2017 Pt. Type: Inpatie nt Tape: Referring: Daphne Shahid ([id number]) Referring: MANDA ALCANTAR Reading: Blade Preston ([id number]) Block Tester: Dayami Paula BA, [facility] Diagnosis: *ICD-10-PCS Non-ST elevation (NSTEMI) [...] MV E-wave Vmax 0.8 m/sec MV deceleration nige448 msec MV A-wave Vmax 0.8 m/sec MV [...] Hypokinetic Mid-Posterolateral Hypokinetic Mid-Inferior Akinetic Mid-Inferoseptal Hypokinetic [place]-Septal Akinetic [place]-Anterior Hypokinetic [place]-Lateral Hypokinetic [place]-Inferior Akinetic [place]-Tip Akinetic This report has been electronically sign ed by: _ Blade Preston MD 07/06/2017 08:53:15 Images [facility] Daphne Shahid MD ECHO ORDERABLES Performing Organization Address City/State/ZIP Code Phon e Number [facility] Differential, Automated (07/05/2017 4:55 PM EST) P athologist Signature Neutrophils % 77.0 % [facility] LABORATORY Neutr Abs (ANC) 5.26 1.70 - [facility] 6.10 [facility] x10(3)/[facility] LABORATORY Lymphocytes % 13.3 % [facility] Lymphocytes Abs 0.9 0.9 - 3.[address] [facility] x10(3)/[facility] LABORATORY Monocytes % 8.2 % [facility] Monocyte Abs 0.6 0.3 - 0.[address] [facility] x10(3)/[facility] LABORATORY Eosinophils % 0.7 % [facility] Eosinophils Abs 0.0 0.0 - 0.[address] [facility] x10(3)/[facility] LABORATORY Basophils % 0.4 % [facility] Basophils Abs 0.0 0.0 - 0.[address] [facility] x10(3)/[facility] LABORATORY Immature Gran % 0.40 % [...] Melisa Gran Abs 0.03 0.00 - 0.04 x10(3)/[facility] LABORATORY Specimen Anatomical Collection Method Collection Time Receive d Time (Source) Location / / Volume Laterality Blood specimen 07/05/2017 4:55 PM 017 5:24 (specimen) EST PM EST Resulting Agency Comment Spec In Lab Daphne Shahid MD HEMATOLOGY ORDERABLES Performing Organization Address City/State/[place] [address] (ABNORMAL) Hemogram (07/05/2017 4:55 PM EST) Analysis Performed At Patho logist Time Signature WBC 6.8 4.0 - 9.[address] [facility] x10(3)/[facility] LABORATORY RBC 4.67 4.58 - [facility] 5.54 [facility] x10(6)/[facility] LABORATORY Hemoglobin 14.0 13.7 - [facility] 16.5 gm/dL [facility] LABORATORY Hematocrit 41.0 40.5 - [facility] 48.5 % [facility] MCV 87.8 82.9 - [facility] 93.1 fL [facility] LABORATORY MCH 30.0 27.5 - [place] DAVIS 32.1 pg [facility] LABORATORY MCHC 34.1 32.0 - [place] [place] 35.7 gm/dL [facility] LABORATORY Platelets 197 145 - 357 [place] x10(3)/[facility] LABORATORY RDWSD 46.4 (H) 36.0 - [place] 45.0 [facility] LABORATORY RDWCV 14.5 (H) 11.4 - [place] RYAN 13.8 % [facility] LABORATORY MPV 9.7 7.6 - 12.9 [place] [facility] LABORATORY nRBC % Auto 0.0 % [facility] nRBC Abs Auto 0.000 0.000 - [place] [facility] 0.000 [facility] x10(3)/[facility] LABORATORY Specimen Anatomical Collection Method Collection Time Receive d Time (Source) Location / / Volume Laterality Blood specimen 07/05/2017 4:55 PM 017 5:24 (specimen) EST PM EST Resulting Agency Comment Spec In Lab Daphne Shahid MD HEMATOLOGY ORDERABLES Performing Organization Address City/State/ZIP Code Phon e Number [facility] [address] (ABNORMAL) Cardiac Enzymes (LEB/CGP) (07/05/2017 4:55 PM EST) P athologist Signature Troponin-T 1.69 (H) 0.00 - [place] 0.00 ng/mL [facility] Comment: The 99th percentile for Troponin T is le ss than 0.01 ng/mL, any detectable cTnT concentration using this assay should be considered elevated. According to the third universal definit ion of myocardial infarction the following criteria with a clinical prese ntation consistent with acute myocardial ischemia meets the diagnosis for a myocardial infarction (DE). Detection of a rise and/or fall of [...] additional sample may be indicated. Reference: Third Rickreall Definition of Myocardial Infarction. Journal of the [place] College [employer] 2012;60:1581-98 CK, Total 191 0 - 200 unit/L [facility] Specimen Anatomical Collection Method Collection Time Receive d Time (Source) Location / / Volume Laterality Blood specimen 07/05/2017 4:55 PM 017 5:56 (specimen) EST PM EST Resulting Agency Comment Spec In Lab Daphne Shahid MD CHEMISTRY ORDERABLES Performing Organization Address City/[facility] [place] [address] (ABNORMAL) pro-Brain Natriuretic Peptide (07/05/2017 4:55 PM EST) athologist Signature ProBNP 1,598 (H) <=125 [facility] pg/mL [facility] LABORATORY Specimen Anatomical Collection Method Collection Time Receive d Time (Source) Location / / Volume Laterality Blood specimen 07/05/2017 4:55 PM 017 5:24 (specimen) EST PM EST Resulting Agency Comment Spec In Lab Daphne Shahid MD CHEMISTRY ORDERABLES Performing Organization Address City/[facility]/[place] [address] Magnesium (07/05/2017 4:55 PM EST) P athologist Signature Magnesium 0.78 0.69 - 1.07 [facility] RYAN mmol/L [facility] LABORATORY Specimen Anatomical Collection Method Collection Time Receive d Time (Source) Location / / Volume Laterality Blood specimen 07/05/2017 4:55 PM 017 5:24 (specimen) EST PM EST Resulting Agency Comment Spec In Lab Daphne Shahid MD CHEMISTRY ORDERABLES Performing Organization Address City/[facility]/[place] [address] (ABNORMAL) Basic Metabolic Panel (non-fasting) (07/05/2017 4:55 PM EST) P athologist Signature Glucose Lvl 230 (H) 65 - [address] [facility] mg/dL [facility] LABORATORY Comment: Diabetes: >=200 mg/dL plus symp toms BUN 19 10 - 20 mg/dL [facility] LABORATORY Creatinine 1.04 0.80 - 1.50 mg/dL [facility] LABORATORY Sodium 142 135 - [...] mmol/L [facility] Anion Gap 14 5 - 15 mmol/L [facility] Calcium 8.5 8.5 - 10.5 mg/dL [facility] LABORATORY Estimated GFR >60 >=60 [facility] Comment: The reported eGFR should be multiplied b y 1.2 for patients. The MDRD is not an appropriate measure o f renal function for patients with body mass extremes or in patients with acute kidney failure. http://Devtap.OrderAhead/DHnkdep http://[employer])/DHMCnkf Specimen Anatomical Collection Method Collection Time Receive d Time (Source) Location / / Volume Laterality Blood specimen 07/05/2017 4:55 PM 017 5:24 (specimen) EST PM EST Resulting Agency Comment Spec In Lab Daphne Shahid MD CHEMISTRY ORDERABLES Performing Organization Address City/State/[place] [address] (ABNORMAL) APTT (07/05/2017 4:55 PM EST) P athologist Signature PTT 41 (H) 25 - 35 sec [facility] Comment: The recommended therapeutic range for fu ll dose, unfractionated heparin at [facility] is 80 ? 114 seconds. The use [...] Shahid MD HEMATOLOGY ORDERABLES Performing Organization Address City/[facility]/ZIP Code Phon e Number [address] (ABNORMAL) POCT Glucose (07/05/2017 4:53 PM EST) P athologist Signature POC Glucose 208 (H) 65 - [address] [facility] mg/dL [facility] LABORATORY Comment: Supplemental ranges: <140 mg/dL before meals <180 mg/dL all other times of the day Specimen Anatomical Collection Method Collection Time Receive d Time (Source) Location / / Volume Laterality Blood specimen 07/05/2017 4:53 PM 017 4:53 (specimen) EST PM EST Daphne Shahid MD POINT OF CARE TEST ORDERABLE S Performing Organization Address City/[facility]/[place] [address] EKG 12 Lead (07/05/2017 4:32 PM EST) Component Value Ref Range Test Analysis Performed Pathologis t Method Time At Signature Ventricular rate 97 BPM MUSE SYSTEM Atrial Rate 97 BPM MUSE SYSTEM P-R Interval 148 ms MUSE SYSTEM QRS Duration 96 ms MUSE SYSTEM Q-T Interval 364 ms MUSE SYSTEM QTC Calculated 462 ms MUSE SYSTEM (Bezet) Calculated P [place] 48 degrees MUSE SYSTEM Calculated R [place] -33 degrees MUSE SYSTEM Calculated T [place] 98 degrees MUSE SYSTEM INTERPRETATION Normal sinus [...] Coronary atherosclerosis of unspecified type of vessel, minto or graft Cardiomyopathy, ischemic Other specified forms [...] post-op day 1 in the AM Give NC if unable to take PO, Routine Given [...] dose on Wed07/07/17 at 2100, Until Discontinued, [employer] teeth, Routine Given 07/08/2017 10:06 PM EST [...] or norepinephrine is ineffective. Call pager # [phone] if initiated. Rate/Dose Change 07/08/2017 7:01 PM [...] Units, Intravenous, PER INSULIN PROTOCOL, Starting on Wed07/07/17 at 1839, Until [place] 07/08/17 at 0426, [...] Starting on [place] 07/08/17 at 0427, Until [place] 07/11/17 at 0909, Per Protocol, BOLUS order. [...] Starting on 07/10/17 at 1045 , Until Wed07/10/17 at 1049, CATHRYN GUIDO (FLEX): cabinet override meTOPROLOL (LOPRESSOR) injection 2.5 mg Given 07/10/2017 10:57 AM EST 2.5 mg 2.5 mg, Intravenous, EVERY 5 MIN PRN, 2 doses, Starting on Wed07/10/17 at 1047, Until Wed07/10/17 at 1057, Elevated [...] if phenyleprine and/or vasopressin ineffective.Call pager # [phone] if initiated., Routine Rate/Dose Change 07/09/2017 1:24 [...] 40 mEq, Oral, ONCE, 1 dose, On Wed07/13/17 at 0745, 20 mEq tablet may [...] 3.2 See instructions for Potassium Protocol in online policies. propofol (DIPRIVAN) Rate/Dose Change 07/08/2017 [...] 2.0 L/min/M2. Maximum volume 2 L. Call housekeeping manager for additional fluid orders: pager #[phone]. Rate/Dose Verify 07/08/2017 4:00 AM EST 100 [...] post-op day 1 in the AM Give NC if unable to take PO, Routine atorvastatin [...] Denice Jacobson, VAMSI)0213 (Stopped - Provider: Denice Jacobson RN)0932 (New Bag - Provider: Myrna Young, [...] RN) 0530 (Gi cody - Provider: Denice Jacobson, [...] Jones RN)0900 (Not Given - Provider: Em Joens RN - Reason: Contraindicated) 0922 (See Alternative [...] (COMPLETED) 0841 (Given - Provider: Em Jones, VAMSI) 40 mEq, Oral, ONCE, 1 dose, Wed07/13/17 at 0745, 20 mEq tablet may be dissolved in water for administration, Routine senna-docusate (PERICOLACE) 8.6-50 mg per tablet 2 tab let 2019 (Given - Provider: Ale Rangel, VAMSI) 2100 (Not Given - Provider: Denice contreras [...] 2200 (Given - Provider: Ale Rangel RN) 2130 (No t Given - Provider: Denice Jacobson [...] 1,000 mg 0544 (Given - Provider: Carmen F Berry, RN) 1,000 mg, Oral, EVERY 6 HOURS [...] post-op day 1 in the AM Give NC if unable to take PO
Routine Group [...]
Routine documented in this encounter Care Teams Fish House Worker Relationship Specialty Start Date End Date Lovely Vicente MD PCP - General 04/16/[address] [place] [address] documented as of this encounter
--- OUTSIDE RECORDS SUMMARY | 2022-02-18 08:20 | XMS_ITS | Encounter Summary ---
:1945 Author Organization [facility] [place] [address] Care Team Providers Name Role Phone Lovely Vicente MD Primary Care Provider Encounter Details Date Type Department Care Team Description 07/08/2017 Orders Only Cardiology [facility] [place] [address] Social History Tobacco Use Types Packs/Day [...] PA [facility] er Cardiology Dept [place], [place] [address] (Wo rk) 03/26/2022 Office Visit Cardiology Vitaliy Nobles MD [facility] CARDIOLOGY [place], [place] [address] (Wo rk) documented as of [...] Mccollum ? (Age): 1945(72y) Med Rec#: ? [id number] ?Sex: ?M ? Site Loc: ? Ht / Wt: ??(cm)/ (kg) ? Pt. Loc: ? Study Date: ?? 07/07/2017 ?Pt. Type: Tape: ? Referring: Yuan Retana Reading: Yifan Perez MD ([id number]) Performing: Yifan Perez MD ([id number]) Diagnosis: SUMMARY: 1. [facility] [...] ? Mid-Inferior ?Hypokinetic ? Mid-Inferoseptal ?Hypokinetic ? [place]-Septal ? Hypokinetic ? [place]-Anterior ? Hypokinetic ? [place]-Lateral ?Hypokinetic ? [place]-Inferior ? Hypokinetic ? [place]-Tip ?Not Seen ? This report has been electronically sign ed by: _ Yifan Perez MD ? 07/08/2017 12 :25:18 Images reviewed and interpretation ver ied [facility] Cardiac Ultrasound Laboratory Procedure Note Yifan Perez MD - 07/08/2017Formatt ing of this note might be different from the original. Procedure: Transesophageal Echocardiogra m Patient: NATALYA MCBRIDE(Age): [birth year]72y) Med Rec#: [id number] Sex: M Site Loc: Ht / Wt: (cm)/ (kg) Pt. Loc: Study Date: 07/07/2017 Pt. Type: Tape: Referring: Yuan Retana Reading: Yifan Perez MD ([id number]) Performing: Yifan Perez MD ([id number]) Diagnosis: SUMMARY: 1. Intraoperative AVELINO performed at [...] Hypokinetic Mid-Posterolateral Hypokinetic Mid-Inferior Hypokinetic Mid-Inferoseptal Hypokinetic [place]-Septal Hypokinetic [place]-Anterior Hypokinetic [place]-Lateral Hypokinetic [place]-Inferior Hypokinetic [place]-Tip Not Seen This report has been electronically sign ed by: _ Yifan Perez MD 07/08/2017 12:25:18 Images reviewed and interpretation elvie hwang [facility] Cardiac Ultrasound Laboratory Unknown ECHO ORDERABLES Performing Organization Address City/State/ZIP Code Phon e Number [facility] documented in this encounter Visit Diagnoses Not on filedocumented in this encounter Care Teams Community Health Director Relationship Specialty Start Date End Date Lovely Vicente MD PCP - General 04/16/[address] [place] [address] documented as of this encounter
--- OUTSIDE RECORDS SUMMARY | 2022-02-18 08:21 | XMS_ITS | Encounter Summary ---
:1945 [place] [address] Care Team Providers Name Role Phone Lovely Vicente MD Primary Care Provider Reason for Visit Auth/Cert Specialty Diagnoses / Procedures Referred By Contact Refer red To Contact Diagnoses STEMI (ST elevation myocardial infarction) NSTEMI STEMI Procedures CARDIAC CATHETERIZATION NAYE IPI Referral ID Status Reason Start Date Expiration Date Visits Requ ested Visits Authorized [id number] 1 1 Encounter Details Date Type Department Care Team Description 07/07/2017 Anesthesia Event Main Operating Room Yifan Jaime MD [facility] [place] [address] [facility] Ginny Murray MD [facility] [place] [address] [facility] [place] [address] Anesthesia Record Procedure Summary Procedure Name [...] 2342 LDA Cath/EP Sheath 07/05/17; 0606; 8 Chilean 07/05/17 0606 by 1118 by (Fr); Right; Femoral [place], Yane Cook, RN PIV 07/05/17; 1720; median 07/05/17 1720 by 07/11/17 2355 by vein (underside of arm), Prior, Yanet Maza, VAMSI Crum, Angela Gomes, left; 18 gauge; removed PATCH SANDER per policy/procedure; 07/11/17; 2355 Intra-Aortic Balloon 07/05/17; 1800; right 07/05/17 1800 by 06/25 11/09 1119 by Pump femoral artery; Stephanie Godoy Nunes, Kathl een D, 07/08/17; 1119 RN RN Urethral Catheter 07/07/17; 1241; Surgery 07/07/17 1241 by 07/11 1200 by longer than 2 hours; Knadi Velásquez, Eva Connors RN Physician order; RN indwelling single lumen catheter; urethral catheter removed, per protocol/policy, tubing intact; 07/11/17; 1200 ETT Mask Ventilation: 07/07/17 1348 by 07/09/17 0556 by Adjunct (2) (OA); ETT Ginny Murray MD Miller, Carrie L, Type: Cuffed; ETT Size: HOSPITAL MORTICIAN 8 mm; Santiago Blade: 2; Notes: Asleep, [...] Murray MD - 07/08/2017 5:08 PM EST [facility] Department of Anesthesiology Post-procedure Note Patient: Don Fatima Procedure Summary Date Anesthesia Start Anesthesia Stop Room / Location 07/07/17 1335 1836 [facility] OR [facility] MAIN OR Procedure Diagnosis Surgeon Responsible Provider @CABG, USING ARTERIAL GRAFT;SINGLE ARTERIAL GRAFT (WRVU 33.75) (N/A Chest); @CABG, TWO VENOUS GRAFTS & ARTERIAL GRAFT (WRVU 7.93) (N/A Chest); ENDOSCOPIC HARVEST VEIN(S) FOR CABG (WRVU 0.31) (Right Leg) (CAD) Yuan Freitas MD Hartman, Gregg S, MD All Anesthesia Providers: Anesthesiologist: Yifan Perez MD Corrugator Operator: Ginny Murray MD Most Recent Vitals: [...] SETUP performed by Manny Mcknight MD at [facility] MAIN OR ??? PRO COLONOSCOPY, REMV LESN, SNARE 01/16/2014 COLONOSCOPY, POLYPECTOMY, REMOVAL LESION BY SNARE performed by Nohemi Jaimes MD at [facility] ENDOSCOPY ??? PRO THYROIDECTOMY 03/28/2013 THYROIDECTOMY, TOTAL OR COMPLETE performed by Manny Mcknight MD at [facility] MAIN OR Social History Substance [...] [facility] er Cardiology Dept [place], [place] [address] (Wo rk) 03/26/2022 Office Visit Cardiology Vitaliy Nobles MD [facility] CARDIOLOGY [place], [place] [address] (Wo rk) documented as of [...] mg documented in this encounter Care Teams [employer] Middleware Architect Relationship Specialty Start Date End Date Lovely Vicente MD PCP - General 04/16/[address] [place] [address] documented as of this encounter
--- OUTSIDE RECORDS SUMMARY | 2022-02-18 08:21 | XMS_ITS | Encounter Summary ---
:1945 Author Organization [facility] Address [facility] [place] [address] Care Team Providers Name Role Phone Lovely Vicente MD Primary Care Provider Reason for Visit Auth/Cert Specialty Diagnoses / Procedures Referred By Contact Refer red To Contact Diagnoses STEMI (ST elevation myocardial infarction) NSTEMI STEMI Procedures CARDIAC CATHETERIZATION NAYE IPI Referral ID Status Reason Start Date Expiration Date Visits Requ ested Visits Authorized [id number] 1 1 Encounter Details Date Type Department Care Team Description 07/07/2017 Surgery Main Operating Room Yuan Webber, @ CABG, USING ARTERIAL Barbara Ocampo MD GRAFT;SINGLE ARTERIAL [facility] GRAFT (WRVU 33.75) [facility] [address] [place] [address] SURGERY [phone] [place], [place] [address] (Wo rk) Social History Tobacco [...] in this encounter Discharge Summaries Martha Teague, PEER COUNSELOR - 07/14/2017 9:38 AM EST Inpatient - Discharge Summary Patient Name: Gregory Hoang Patient Age: 72 y.o. Birthdate: 1945 Language: Kittitian Race: White Ethnicity: Not nor Admit Date: [...] , @ 1:20p Patient to follow-up with Physician Ophthalmologist/heart failure team in one week. An appointment will be made for you. You may call [phone] Patient to follow-up with Cardiac Surgery, Dr. Yuan Webber, in ~ 4 weeks with CXR, EKG. Inpatient Provider Contact Information: [facility] Section of Cardiac Surgery [facility] [id number] FAX [phone] Discharge Diagnoses (Hospital Problems) Primary Diagnoses: CAD [...] SETUP performed by Manny Mcknight MD at [facility] OR ??? PRO CABG, ARTERIAL, SINGLE N/A 07/07/2017 @CABG, USING ARTERIAL GRAFT;SINGLE ARTERIAL GRAFT (WRVU 33.75) performed by Yuan Webber MD at [facility] OR ??? PRO CABG, ARTERY-VEIN, TWO N/A 07/07/2017 @CABG, TWO VENOUS GRAFTS & ARTERIAL GRAFT (WRVU 7.93) performed by Yuan Webber MD at [facility] OR ??? PRO COLONOSCOPY, REMV LESN, SNARE 01/16/2014 COLONOSCOPY, POLYPECTOMY, REMOVAL LESION BY SNARE performed by Nohemi Jaimes MD at [facility] ENDOSCOPY ??? PRO ENDOSCOPY W/VIDEO-ASST VEIN HARVEST, CABG Right 07/07/2017 ENDOSCOPIC HARVEST VEIN(S) FOR CABG (WRVU 0.31) performed by Yuan Webber MD at [facility] OR ??? PRO THYROIDECTOMY 03/28/2013 THYROIDECTOMY, TOTAL OR COMPLETE performed by Manny Mcknight MD at [facility] OR Prior To Admission Medications Prescriptions Prior to Admission Medication Sig Dispense Refill Last Dose ??? levothyroxine (SYNTHROID) 175 mcg Tablet Take 1 tablet by mouth daily. 90 tablet 3 07/05/2017 [id number] ??? ascorbic acid, vitamin C, (VITAMIN C) [...] hospital and ruled infor non-ST segment elevation [place]. This almost certainly represents the residual of [...] Hospital Course: Gregory Hoang was admitted to [facility] on 07/05/2017 via the Cardiology Service. During his hospital course, he was taken emergently to the industrial laborer for an ongoing STEMI. An IABP [...] not take or discontinue any prescription or pcet-qta-tslrndj medications without asking your doctor or pharmacist [...] day to have your insulin doses adjusted. [facility] Endocrine clinic office Discharge Instructions: Call your doctor if: You have a fever of greater than 101 degrees, shaking chills, if you develop redness or drainage from your incision sites, or if you have questions. Please call your surgeon's office if you have any discharge or drainage from your chest incision. Your surgeon, Dr. Yuan Webber and/or the Cardiac Surgery Physician Standard Machine Stitcher Team may be reached at . Weight: [...] Dr. Yuan Webber. You may use a [place] Track or treadmill but avoid any pulling [...] friends, go to a movie, go to adventism, etc. Heavy activities: No hunting, skiing, jogging, snow shoveling, snowmobiling, lawn mowing, swimming, golf or tennis until after your return appointment with the surgeon. Do not ride motorcycles, Trial[employer]'s tractors or horses. Avoid the use of [...] should resume a low fat, low cholesterol, [place] Heart Association Diet/Diabetic diet. Driving: No driving [...] , @ 1:20p Patient to follow-up with Physician Ophthalmologist/heart failure team in one week. Appointment will be made for you. You may call [phone] Patient to follow-up with Cardiac Surgery, Dr. Yuan Webber, in ~ 4 weeks with CXR, EKG. Cardiac Rehabilitation: Gregory Hoang was seen today regarding participation in the outpatient Phase 2 Cardiac Rehabilitation at [facility]. The patient agrees to a referral to this program. The referral will be sent at discharge and the patient should be contacted by the Program within 1- 2 weeks from discharge. ?? Future Appointments and Orders Future Appointments Provider Department Dept Phone 09/07/2017 3:00 PM LAB, THREE L Lab 3L [facility] [phone] 09/07/2017 4:00 PM Luz Prescott MD Endocrinology at [place] [phone] Future Orders Complete By Expires EKG 12 Lead [EKG1 Custom] 08/14/2017 02/13/2018 Process Instructions: Scheduling Instructions: Questions: Which DH location will this be performed?: [place] Is a rhythm strip needed?: No If EKG Reason is Pre-op Evaluation, indicate diagnosis for surgery.: XR Chest PA & Lateral (Generic) [[id number] Custom] 08/14/2017 02/13/2018 Process Instructions: Scheduling Instructions: Questions: Where will study be performed?: [place] [facility] Portable exam?: Reason for exam and clinical history: CABG x 3 Other pertinent information: Stat read required?: Date of injury if applicable: Requested Time: Referral to Cardiac Rehab [KUM286 Custom] As directed Process Instructions: If no progress note charted, please enter Clinical details in comments. Scheduling Instructions: Questions: My question or request is: s/p CABG. Cardiac rehab at [facility] Referral to Home Health - at DISCHARGE [MEC0495 CPT(R)] As directed Process Instructions: Scheduling Instructions: Comments: DOCUMENTATION FOR VNA SERVICES (INCLUDING THOSE PATIENTS WITH MEDICARE COVERAGE REQUIRING HOME VNA SERVICES AND/OR HOSPICE SERVICES) PATIENT'S LOCATION: Gregory Hoang [address] [place] [address] [place] [id number] (home) Telephone Information: Drawbridge Tender's Name: self In discussion with the attending physician, it is certified that this patient is under their care and that they, or a Nurse Practitioner, or Physician Standard Machine Stitcher who is working directly with them, had [...] [facility] ([facility] [place] [facility]-is in [place] PHONE: [phone] FAX: [phone] RN orders: Cardiopulmonary assessment, incisional assessment, assess vital signs, assessment of rehab progress, medication management and effectiveness, home safety evaluation. Please draw INR if indicated and send result to:Dr Vicente [phone] PT ORDERS: Continue rehab for endurance, gait stability and strength with mobility and transfers. Home safety evaluation. Home exercise program if appropriate. Start of Care Date:24-48 hours after discharge SPECIAL INSTRUCTIONS: For any follow up questions, needs, or issues please call the Cardiac Surgery Office at [phone] FOR MEDICARE ONLY: (please delete this section [...] noted. Questions: Agency name and contact information: [facility] Patient location post discharge: home What services are requested: Registered Nurse Physical Therapy Start date: Responsible MD post discharge contact info: PCP Arrangements for VNA/home care: As above. VN RN OR PCP TO PLEASE REMOVE CHEST TUBE SUTURES ON OR AFTER 07/17/2017 Signed: Martha Teague APRN [facility] Section of Cardiac Surgery [employer] [facility] [employer] [phone] FAX [phone] Date: 07/14/2017 CC: MD Ivania Cr Betsy, PA [address] [place] [phone] documented in this encounter Discharge Instructions Discharge [...] day to have your insulin doses adjusted. [facility] Endocrine clinic office Patient InstructionsStMartha [...] not take or discontinue any prescription or rryd-oor-gnjbbfe medications without asking your doctor or pharmacist [...] day to have your insulin doses adjusted. [facility] Endocrine clinic office ? Discharge [...] Yuan Webber and/or the Cardiac Surgery Physician Standard Machine Stitcher Team may be reached at . ?? [...] Dr. Yuan Webber. You may use a [place] Track or treadmill but avoid any pulling [...] friends, go to a movie, go to adventism, etc. ?? Heavy activities: No hunting, skiing, jogging, snow shoveling, snowmobiling, lawn mowing, swimming, golf or tennis until after your return appointment with the surgeon. Do not ride motorcycles, [employer]'s tractors or horses. Avoid the use of [...] should resume a low fat, low cholesterol, [place] Heart Association Diet/Diabetic diet. ?? Driving: No [...] @ 1:20p ?? Patient to follow-up with Physician Ophthalmologist/heart failure team in one week. An appointment has been made for you, you can call [phone] ?? Patient to follow-up with Cardiac Surgery, Dr. Yuan Webber, in ~ 4 weeks with CXR, EKG. ? Cardiac Rehabilitation: Gregory Hoang??was seen today regarding participation in the outpatient Phase 2 Cardiac Rehabilitation at [facility]. ?? The patient agrees to a referral to this program.? The referral will be sent at discharge and the patient should be contacted by the Program within 1- 2 weeks from discharge. ? Future Appointments and Orders Future Appointments Provider Department Dept Phone ?? 09/07/2017 3:00 PM LAB, THREE L Lab 3L [facility] [phone] ?? 09/07/2017 4:00 PM Luz Prescott MD Endocrinology at [place] [phone] Future Orders Complete By Expires ?? EKG 12 Lead [EKG1 Custom] 08/14/2017 02/13/2018 ?? Process Instructions: ? Scheduling Instructions: ? Questions: ? Which location will this be performed?: [place] ?? Is a rhythm strip needed?: No ?? If EKG Reason is Pre-op Evaluation, indicate diagnosis for surgery.: ?? XR Chest PA & Lateral (Generic) [[id number] Custom] 08/14/2017 02/13/2018 ?? Process Instructions: ? Scheduling Instructions: ? Questions: ? Where will study be performed?: [place] [facility] ?? Portable exam?: ?? Reason for exam and clinical history: CABG x 3 ?? Other pertinent information: ?? Stat read required?: ?? Date of injury if applicable: ?? Requested Time: ?? Referral to Cardiac Rehab [OUA416 Custom] As directed ? Process Instructions: ?? If no progress note charted, please enter Clinical details in comments. ?? Scheduling Instructions: ? Questions: ? My question or request is: s/p CABG. Cardiac rehab at [facility] ? Arrangements for VNA/home [...] RN - 07/14/2017 2:34 PM EST The patient/medical billing representative has been provided a list of Home Health Agencies/DME vendors which serve their preferred geographic area. A letter describing our affiliations was reviewed with them and theywere educated about their right to choose where referrals are placed. Patient requests referral to [facility] [employer]. PHONE: [phone] FAX: [phone] Expected date of discharge: 07/14 Referral routed to the Sales Support Coordinator for matching with agency/vendor and to [...] day to have your insulin doses adjusted. [facility] Endocrine clinic office Kathie Carrera APRN [facility] Endocrinology Diabetes Management Pager [phone] 20 minutes of this 35 minute visit was spent with the patient in counseling on diabetes and treatment plan, reviewing all glucose and insulin data as well as relevant laboratory results with the patient, and coordination of care on the inpatient unit including nursing and primary team. Zulma Power RN - 07/14/2017 10:30 AM EST The patient/medical billing representative has been provided a list of Home Health Agencies/DME vendors which serve their preferred geographic area. A letter describing our affiliations was reviewed with them and theywere educated about their right to choose where referrals are placed. Patient requests referral to : Yasmani [facility] ([facility] [place] [facility]-is in [place]) PHONE: [phone] FAX: [phone]. Expected date of discharge: 07/14/17 Referral routed to the Sales Support Coordinator for matching with agency/vendor and to [...] hours. If BG remains greater than 240, [id number] units (no more than three times) &??call [...] #6 s/p CABG X3. FSBG [address] at [place], reports no symptoms but did drink some [...] Will continue to follow Katerin Azul APRN [facility] Endocrinology Diabetes Management Pager [phone] 15 minutes of this 25 minute visit [...] of infiltration/extravasation Discussed plan of care with MOTEL MANAGER and RN. Elevate exrtemity and apply intermittent Warm compresses. Name of MD contacted Dr. Shaw Brown 07/13/2017 @ 0644 Name of RN contacted Ale Rangel RN Name of Pharmacist if consulted NA Name of Plastics MD ( if consulted) NA (Mandatory photo for infiltrations/ extravasations scoring a stage 2 or greater, but recommended forstage 1)( include measuring tape and identifier in the photo) MOSAIC TECHNICIAN CARING FOR THIS PATIENT WILL CONTINUE TO [...] measuring tape and identifier in the photo) MOSAIC TECHNICIAN CARING FOR THIS PATIENT WILL CONTINUE TO [...] regard to both infiltrates addressed by this software writer.All of MrMadiha Hoang's responses were entirely appropriate. Images of infiltrates attached here. L Martha Teague, PEER COUNSELOR - 07/13/2017 8:01 AM EST Cardiac Surgery Progress Note: ID: [id number] 72 year old male POD#6 s/p CABGx3 [...] discharge. ?? I have met with the patient/medical billing representative to discuss discharge planning needs. I have provided the [facility], Office of Care Management letter from the Warehouse Supervisor pertaining to rehab referrals. I have also provided a letter describing our affiliations within the [facility] and educated them about their right to choose where referrals are placed. ?? I reviewed the different levels of rehab including SNF, swing, acute and LTAC with the patient/medical billing representative. ?? The patient/medical billing representative has been provided a list of facilities within their preferred geographic area. ?? I have requested that the patient/medical billing representative provide at least three choices for referral. ?? The patient/medical billing representative have requested referrals to: ?? [facility]. [facility] ?? 2. [facility] ?? 3. More to be entered ?? Expected date of discharge: 07/14 Note routed to Sales Support Coordinator who will communicate referrals to facilities [...] hours. If BG remains greater than 240, iputww26 units (no more than three times) & [...] hours. If BG remains greater than 240, ljocdb48 units (no more than three times) & call for new basal insulin orders. ??If less than 240 after two hours, give no insulin and resume prior schedule. Will continue to follow Katerin Azul APRN [facility] Endocrinology Diabetes Management Pager [phone] 20 minutes of this 35 minute visit was spent with the patient in counseling on diabetes and treatment plan, reviewing all glucose and insulin data as well as relevant laboratory results with the patient, and coordination of care on the inpatient unit including nursing and primary team. Makayla Stevenson APRN - 07/12/2017 9:52 AM EST Cardiac Surgery Progress Note: ID: [id number] 72 year old male POD#5 s/p CABGx3 [...] 07/11/2017 7:18 PM EST Patient arrived from [facility]. VSS. MSI dressing pulled off with fresh serousangious drainage. Maakyla STRANGE notified. Incision cleaned with chlorhexidine and [...] AM EST Cardiac Surgery Progress Note: ID: [id number] 72 year old male POD#4 s/p CABGx3 [...] hours. If BG remains greater than 240, ejqhof57 units (no more than three times) & [...] AM EST Cardiac Surgery Progress Note: ID: [id number] 72 year old male POD#3 s/p CABGx3 [...] Gas) No results found for: PHART, PO2ART, TDW6RIE Assessment/Plan: 72 year old male POD#3 s/p [...] Mami Thao - 07/09/2017 6:29 PM EST Historic Preservationist Encounter Note Patient Name: Gregory Hoang : [id number] MR#: [id number] Admit Date: 07/05/2017 4:20 PM Hospital Day 4 days Narrative: Patient was sitting in chair, hugging heart pillow, opened his eyes, nodding to come into room Assessment: Patient was sleepy. Intervention and Outcome: Introduced doughnut batter mixer services and patient reached his hand out in appreciation. Follow-up: Historic Preservationist remains available for support. Time in Direct [...] 07/09/2017 10:45 AM EST Report given to air liaison and special staff to cover care Maddison Cee PA - 07/09/2017 9:00 AM EST Cardiac Surgery Progress Note: ID: [id number] 72 year old male POD#2 s/p CABGx3 [...] completed shifts: In: 7977.4 [I.V.:7477.4; Other:500] Out: 0855 [Urine:3000; Other:615] I- 4 L O- 2.7 [...] Attending Surgeon on rounds. Signed: STEPHANIE Iqbal [facility] Section of Cardiac Surgery Date: 07/09/2017 [...] when IABP d/c'ed. Gretchen Carolina, PT Pager [phone] Maddison Cee PA - 07/08/2017 11:27 AM EST Cardiac Surgery Progress Note: ID: [id number] 72 year old male POD#1 s/p CABGx3 [...] Attending Surgeon on rounds. Signed: STEPHANIE Iqbal [facility] Section of Cardiac Surgery Date: 07/08/2017 [...] in place in R femoral. No hematoma. DRUG ABUSE COUNSELOR- Intact Psych- Anxious Skin- Dry, no peripheral [...] intact. IABP in place in R femoral. DRUG ABUSE COUNSELOR- Intact Psych- Anxious Skin- Dry, no peripheral [...] pending CABG - hold metformin - f/u [facility] ?? #Home Meds - continue levothyroxine [...] note for details. DAPHNE SHAHID MD Pager [phone] Jet Mckenna MD - 07/05/2017 6:48 PM EST Preliminary Cardiac Catheterization Procedure Note: Procedure(s) performed: Left heart cath, IABP insertion Access: Right CORE PASTER-->8fr IABP A time-out was conducted prior to [...] effect. Heparin gtt maintained. Pt transferred to industrial laborer. documented in this encounter H&P Notes Daphne Shahid MD - 07/05/2017 6:08 PM EST CARDIOLOGY HISTORY & PHYSICAL EXAM Date of Admission: 07/05/2017 ( Hospital Day 0 days ) Responsible Attending: Daphne Shahid MD PCP: Lovely Vicente MD PCP#: [phone] Patient Active Problem List Diagnosis Code ??? [...] load with heparin drip and transferred to [facility]. While there, continued sob, question of chest pain. Stat TTE showing WMA diffusely and EF around 20%. No significant valvular disease. Taken to the industrial laborer urgently for ongoing STEMI. [facility] Labs: INR 1.0 WBC [...] monitor I/O - s/p lasix in the industrial laborer, redose to aim net neg 1L [...] Medicine, PGY-2 Cardiology S1, Team Pager # [phone] CARDIOLOGY ATTENDING NOTE Patient: Gregory Hoang Date [...] amenable for PCI. DAPHNE SHAHID MD Pager [phone] documented in this encounter Miscellaneous Notes Consult Note - Daphne Shahid MD - 07/14/2017 11:46 AM EST Heart Failure Service Inpatient Consult Note Gregory Hoang Date of : 1945 Age: 72 y.o. Today's date: 07/14/17 PCP: Lovely Vicente MD RADIOLOGIST DIAGNOSTIC: None Place of Service: C451-A Reason for [...] SETUP performed by Manny Mcknight MD at [facility] OR ??? PRO CABG, ARTERIAL, SINGLE N/A 07/07/2017 @CABG, USING ARTERIAL GRAFT;SINGLE ARTERIAL GRAFT (WRVU 33.75) performed by Yuan Webber MD at [facility] OR ??? PRO CABG, ARTERY-VEIN, TWO N/A 07/07/2017 @CABG, TWO VENOUS GRAFTS & ARTERIAL GRAFT (WRVU 7.93) performed by Yuan Webber MD at [facility] OR ??? PRO COLONOSCOPY, REMV LESN, SNARE 01/16/2014 COLONOSCOPY, POLYPECTOMY, REMOVAL LESION BY SNARE performed by Nohemi Jaimes MD at [facility] ENDOSCOPY ??? PRO ENDOSCOPY W/VIDEO-ASST VEIN HARVEST, CABG Right 07/07/2017 ENDOSCOPIC HARVEST VEIN(S) FOR CABG (WRVU 0.31) performed by Yuan Webber MD at [facility] OR ??? PRO THYROIDECTOMY 03/28/2013 THYROIDECTOMY, TOTAL OR COMPLETE performed by Manny Mcknight MD at [facility] MAIN OR Outpt Meds: Current Outpatient [...] following studies: EKG 07/14/17: NSR 75 bpm, THUMB SEWER anterior infarct, LAD CXR 07/11/17: FINDINGS: Sternotomy wires. The patient has been extubated, left chest tube removed, and Westlake-Suzi catheter removed since the 07/07/2017 study. Atelectasis [...] was discussed with Zehra. Jaden Kelley MD [employer] Nurse Pager [phone] CARDIOLOGY ATTENDING NOTE Patient: Gregory Hoang Date [...] heart failure clinic. DAPHNE SHAHID MD Pager [phone] Plan of Care - Alden Chavarria, LANGUAGE ASSISTANT - 07/14/2017 11:35 AM EST Problem: Patient [...] Disposition: home with assist Alden Jorge Genikevin, LANGUAGE ASSISTANT Pager: [phone] Inpatient Physical Therapy Problem: Acute Rehab Services [...] sit/sit to supine -- Bed Mobility Goal, [place] Level supervision required -- Bed Mobility Goal, [...] - 3 days -- Gait Training Goal, [place] Level supervision required -- Gait Training Goal, [...] days -- Transfer Training Goal, Activity Type bxk-qd-gwyaw/xmsnn-ko-wcz;dnh-fe-rifxz/thzfw-qp-lmf;toilet -- Transfer Train Goal, [place] Level supervision required -- Transfer Training Goal, [...] EVALUATION: Ongoing Plan of Care - Em oJnes RN - 07/13/2017 6:31 PM EST Problem: [...] keeping present for 2 days per family. C Consultant noted of frustrations, house keeping sent to room. Patient offered showered twice, refused. at bedside, frustrated that shower not complete, informed that patient had refused several times. requesting to see AIRCRAFT CLEANER, paged sent to Martha, will come to bedside (middle of consult). not willing to wait, Martha notified that family had gone home. Encouraged to come for morning rounds a t 8am. Diabetes team at bedside - insulin adjustments made. Call cabello in reach. Continue to monitor. PLAN MOVING FORWARD: Ambulate, dressing changes BID, Please change drsg at 4am per Martha AIRCRAFT CLEANER request. INDIVIDUALIZED FALL PREVENTION INTERVENTIONS: Patient-specific fall [...] levels on the lower side, 60ml of Eunice juice given after a FS of 80. [...] Conf 07/13/17 0502 Interdisciplinary Rounds/Family Conf Participants complex case manager;dietitian/nutrition services;nursing;occupational therapy;patient;pharmacy;physical therapy;physician Plan of [...] Anticipated Discharge Disposition: home with assist Pager: [phone] CLARISSA SEGAL, PT 07/12/2017 Physical Therapy Rehabilitation [...] to sit/sit to supine Bed Mobility Goal, [place] Level supervision required Bed Mobility Goal, Additional Goal adheres to psternal precautions for transfer Goal: Gait Training Goal Stand Alone Therapy Goal Outcome: Ongoing (Interventions Implemented as Appropriate) 07/12/17 1225 Gait Training Goal Gait Training Goal, Date Established 07/12/17 Gait Training Goal, Time to Achieve 2 - 3 days Gait Training Goal, [place] Level supervision required Gait Training Goal, Assist [...] 3 days Transfer Training Goal, Activity Type wpk-va-jynof/qderj-cd-mkv;hcb-dh-biziv/whzuc-ye-fmf;toilet Transfer Train Goal, [place] Level supervision required Transfer Training Goal, Additional Goal adheres to sternal precautions during transfer Consult Note - Octavia Vaughn RN - 07/12/2017 10:50 AM EST [facility] CARDIAC REHABILITATION Gregory Hoang was seen today regarding participation in the outpatient Phase 2 Cardiac Rehabilitation at [facility]. The patient agrees to [...] IV site, amio to other piv and PRESS CLIPPINGS CUTTER AND PASTER at bedside to help assess, IV removed. [...] staff, he stood and marched in place. [place] weak, wanting to sit back down. Remained [...] Health/Prescription Coverage: Primary Insurance: MEDICARE Secondary Insurance: [employer] [place] Prescription Coverage: yes Preferred Pharmacy: [email or web address] [place] Other: none Primary Care Provider: Lovely Vicente MD [phone] Patient/Caregiver Goals of Treatment:live and get my breath back Potential Needs for Transition of Care: Rehab/SNF: [facility] Home Health: NA DME: TBD Dialysis: na Community Resources: available Transportation: yes Other: none Anticipated Barriers to Discharge/Special Considerations: none Plan: Likely SNF Rehab before home A member of the Care Management team will continue to monitor progress, follow for continuity of care and assist with transition of care planning. ERLIN Weiss Pager: [phone] Consult Note - Katerin Azul RN - [...] management and to provide a review of buttermaker helper diabetes care. Diabetes History: Gregory Hoang has [...] potential to d/c gtt and start CF. jail diabetes care: Medications - Outpatient treatment regimen recommendations pending based on the hospital course. Monitoring - continue BG tid ac & hs Diet - low fat/low carb diet Exercise - weight-bearing exercise 30 min/day, as tolerated Thank you for allowing us to provide care for your patient W/E coverage, Dr. 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 In this [...] code status: Full Code Katty Hahn, MS3 [facility] Cardiology S1 (Pager [phone]) Plan of Care - Emelia Ibarra RN [...] hospital and ruled infor non-ST segment elevation [place]. This almost certainly represents the residual of [...] SETUP performed by Manny Mcknight MD at [facility] MAIN OR ??? PRO COLONOSCOPY, REMV LESN, SNARE 01/16/2014 COLONOSCOPY, POLYPECTOMY, REMOVAL LESION BY SNARE performed by Nohemi Jaimes MD at [facility] ENDOSCOPY ??? PRO THYROIDECTOMY 03/28/2013 THYROIDECTOMY, TOTAL OR COMPLETE performed by Manny Mcknight MD at [facility] MAIN OR Social History: Social History [...] with other involved physicians Yuan Webber MD [phone] Med Student Progress Note - Katty Hahn [...] major CV events such as , stroke, [place], repeat revascularization compared to PCI). 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 Lasix given in industrial laborer, 1.4 L out at this time. [...] Poole PA [facility] Medical [facility] er Cardiology Dept [place], [place] [address] (Wo rk) 03/26/2022 Office Visit Cardiology Vitaliy Nobles MD [facility] ER CARDIOLOGY [place], [place] [address] (Wo rk) Scheduled Orders Name [...] procedure are i n the results section. CHIP FRIER SCAN 07/15/2017 12:00 Res ults for this [...] Routine 07/07/2017 5:15 Results f or this ([facility]) AM EST procedure are i [...] Routine 07/06/2017 7:40 Results f or this ([facility]) PM EST procedure are i [...] Timed 07/06/2017 2:10 Results f or this ([facility]) PM EST procedure are i n the [...] section. TYPE AND SCREEN Routine 07/06/2017 12:00 ([facility]/SHANDA) PM EST APTT STAT 07/06/2017 [...] Routine 07/06/2017 8:10 Results f or this ([facility]) AM EST procedure are i [...] Routine 07/06/2017 2:20 Results f or this ([facility]) AM EST procedure are i [...] Timed 07/05/2017 4:55 Results f or this ([facility]) PM EST procedure are i [...] Teague APRN IMG DX ORDERABLES SCAN DOC: CHIP FRIER (07/15/2017 12:00 AM EST) Narrative 07/15/2017 12:00 [...] Signature POC Glucose 186 65 - 199 [facility] mg/dL [facility] Comment: Supplemental ranges: <140 mg/dL before meals <180 mg/dL all other times of the day Specimen Anatomical Collection Method Collection Time Receive d Time (Source) Location / / Volume Laterality Blood specimen 07/14/2017 11:56 7 (specimen) AM EST 11:56 AM EST Yaun Webber MD POINT OF CARE TEST ORDERABLE S Performing Organization Address City/State/[place] [address] POCT Glucose (07/14/2017 7:52 AM EST) athologist Signature POC Glucose 126 65 - 199 [facility] Comment: Supplemental ranges: <140 mg/dL before meals <180 mg/dL all other times of the day Specimen Anatomical Collection Method Collection Time Receive d Time (Source) Location / / Volume Laterality Blood specimen 07/14/2017 7:52 AM 017 7:52 (specimen) EST AM EST Yuan Webber MD POINT OF CARE TEST ORDERABLE S Performing Organization Address [facility]/[place] [address] (ABNORMAL) Prothrombin Time (07/14/2017 4:46 AM EST) athologist Signature PT 26.4 (H) 11.8 - 14.0 [facility] LABORATORY INR 2.4 (H) 0.9 - [...] Wilson APRN HEMATOLOGY ORDERABLES Performing Organization Address City/[facility] [address] Potassium (07/14/2017 4:46 AM EST) athologist Signature Potassium 4.3 3.5 - 5.0 [facility] mmol/L [facility] Comment: Please note: ??Patients with WBC [...] Address City/State/ZIP Code Phon e Number [address] POCT Glucose (07/14/2017 4:34 AM EST) athologist Signature POC Glucose 115 65 - 199 [place] mg/dL [facility] Comment: Supplemental ranges: <140 mg/dL before meals <180 mg/dL all other times of the day Specimen Anatomical Collection Method Collection Time Receive d Time (Source) Location / / Volume Laterality Blood specimen 07/14/2017 4:34 AM 017 4:34 (specimen) EST AM EST Yuan Webber MD POINT OF CARE TEST ORDERABLE S Performing Organization Address City/[facility]/ZIP Code Phon e Number [address] POCT Glucose (07/13/2017 11:33 PM EST) athologist Signature POC Glucose 132 65 - 199 [place] mg/dL [facility] Comment: Supplemental ranges: <140 mg/dL before meals <180 mg/dL all other times of the day Specimen Anatomical Collection Method Collection Time Receive d Time (Source) Location / / Volume Laterality Blood specimen 07/13/2017 11:33 7 (specimen) PM EST 11:33 PM EST Yuan Webber MD POINT OF CARE TEST ORDERABLE S Performing Organization Address City/[facility]/[place] [address] POCT Glucose (07/13/2017 9:25 PM EST) athologist Signature POC Glucose 121 65 - 199 [place] mg/dL [facility] Comment: Supplemental ranges: <140 mg/dL before meals <180 mg/dL all other times of the day Specimen Anatomical Collection Method Collection Time Receive d Time (Source) Location / / Volume Laterality Blood specimen 07/13/2017 9:25 PM 017 9:25 (specimen) EST PM EST Yuan Webber MD POINT OF CARE TEST ORDERABLE S Performing Organization Address City/State/[place] [address] POCT Glucose (07/13/2017 4:55 PM EST) athologist Signature POC Glucose 79 65 - 199 [place] mg/dL [facility] Comment: Supplemental ranges: <140 mg/dL before meals <180 mg/dL all other times of the day Specimen Anatomical Collection Method Collection Time Receive d Time (Source) Location / / Volume Laterality Blood specimen 07/13/2017 4:55 PM 017 4:55 (specimen) EST PM EST Yuan Webber MD POINT OF CARE TEST ORDERABLE S Performing Organization Address City/State/[place] [address] [facility] [address] POCT Glucose (07/13/2017 11:16 AM EST) athologist Signature POC Glucose 163 65 - 199 [place] mg/dL [facility] Comment: Supplemental ranges: <140 mg/dL before meals <180 mg/dL all other times of the day Specimen Anatomical Collection Method Collection Time Receive d Time (Source) Location / / Volume Laterality Blood specimen 07/13/2017 11:16 7 (specimen) AM EST 11:16 AM EST Yuan Webber MD POINT OF CARE TEST ORDERABLE S Performing Organization Address City/State/[place] [address] POCT Glucose (07/13/2017 8:07 AM EST) athologist Signature POC Glucose 96 65 - 199 [place] mg/dL [facility] Comment: Supplemental ranges: <140 mg/dL before meals <180 mg/dL all other times of the day Specimen Anatomical Collection Method Collection Time Receive d Time (Source) Location / / Volume Laterality Blood specimen 07/13/2017 8:07 AM 017 8:07 (specimen) EST AM EST Yuan Webber MD POINT OF CARE TEST ORDERABLE S Performing Organization Address City/State/[place] [address] (ABNORMAL) Prothrombin Time (07/13/2017 4:26 AM EST) P athologist Signature PT 20.8 (H) 11.8 - 14.0 [facility] LABORATORY INR 1.8 (H) 0.9 - [...] Organization Address City/State/[place] [address] (ABNORMAL) Basic Metabolic Panel (non-fasting) (07/13/2017 4:26 AM EST) athologist Signature Glucose Lvl 95 65 - 199 [facility] mg/dL [facility] Comment: Diabetes: >=200 mg/dL plus symp toms BUN 25 (H) 10 - 20 mg/dL [facility] Creatinine 1.19 0.80 - 1.50 mg/dL [facility] Sodium 143 135 - 145 mmol/L [facility] Potassium 3.7 3.5 - 5.0 mmol/L [facility] [...] Calcium 7.7 (L) 8.5 - 10.5 mg/dL [facility] Estimated GFR 60 >=60 [facility] Comment: The reported eGFR should be multiplied b y 1.2 for patients. The MDRD is not an appropriate measure o f renal function for patients with body mass extremes or in patients with acute kidney failure. http://CoTweet/DHnkdep http://CoTweet/DHMCnkf Specimen Anatomical Collection Method Collection Time Receive d Time (Source) Location / / Volume Laterality Blood specimen 07/13/2017 4:26 AM 017 4:46 (specimen) EST AM EST Resulting Agency Comment Spec In Lab Makayla Wilson APRN CHEMISTRY ORDERABLES Performing Organization Address City/State/ZIP Code Phon e Number [address] POCT Glucose (07/13/2017 3:52 AM EST) athologist Signature POC Glucose 93 65 - 199 [facility] mg/dL [facility] Comment: Supplemental ranges: <140 mg/dL before meals <180 mg/dL all other times of the day Specimen Anatomical Collection Method Collection Time Receive d Time (Source) Location / / Volume Laterality Blood specimen 07/13/2017 3:52 AM 017 3:52 (specimen) EST AM EST Yuan Webber MD POINT OF CARE TEST ORDERABLE S Performing Organization Address City/State/ZIP Code Phon e Number [address] POCT Glucose (07/13/2017 12:21 AM EST) athologist Signature POC Glucose 80 65 - 199 [facility] Comment: Supplemental ranges: <140 mg/dL before meals <180 mg/dL all other times of the day Specimen Anatomical Collection Method Collection Time Receive d Time (Source) Location / / Volume Laterality Blood specimen 07/13/2017 12:21 7 (specimen) AM EST 12:21 AM EST Yuan Webber MD POINT OF CARE TEST ORDERABLE S Performing Organization Address City/[facility]/ZIP Code Phon e Number [address] POCT Glucose (07/12/2017 8:22 PM EST) P athologist Signature POC Glucose 119 65 - 199 [place] mg/dL [facility] Comment: Supplemental ranges: <140 mg/dL before meals <180 mg/dL all other times of the day Specimen Anatomical Collection Method Collection Time Receive d Time (Source) Location / / Volume Laterality Blood specimen 07/12/2017 8:22 PM 017 8:22 (specimen) EST PM EST Yuan Webber MD POINT OF CARE TEST ORDERABLE S Performing Organization Address City/[facility]/ZIP Code Phon e Number [address] POCT Glucose (07/12/2017 4:02 PM EST) P athologist Signature POC Glucose 114 65 - 199 [facility] mg/dL [facility] Comment: Supplemental ranges: <140 mg/dL before meals <180 mg/dL all other times of the day Specimen Anatomical Collection Method Collection Time Receive d Time (Source) Location / / Volume Laterality Blood specimen 07/12/2017 4:02 PM 017 4:02 (specimen) EST PM EST Yuan Webber MD POINT OF CARE TEST ORDERABLE S Performing Organization Address City/State/ZIP Code Phon e Number [address] POCT Glucose (07/12/2017 11:28 AM EST) P athologist Signature POC Glucose 164 65 - 199 [facility] mg/dL [facility] Comment: Supplemental ranges: <140 mg/dL before meals <180 mg/dL all other times of the day Specimen Anatomical Collection Method Collection Time Receive d Time (Source) Location / / Volume Laterality Blood specimen 07/12/2017 11:28 7 (specimen) AM EST 11:28 AM EST Yuan Webber MD POINT OF CARE TEST ORDERABLE S Performing Organization Address City/State/ZIP Code Phon e Number [address] POCT Glucose (07/12/2017 7:34 AM EST) athologist Signature POC Glucose 109 65 - 199 [facility] Comment: Supplemental ranges: <140 mg/dL before meals <180 mg/dL all other times of the day Specimen Anatomical Collection Method Collection Time Receive d Time (Source) Location / / Volume Laterality Blood specimen 07/12/2017 7:34 AM 017 7:34 (specimen) EST AM EST Yuan Webber MD POINT OF CARE TEST ORDERABLE S Performing Organization Address City/State/[place] [address] (ABNORMAL) Basic Metabolic Panel (non-fasting) (07/12/2017 4:11 AM EST) athologist Signature Glucose Lvl 92 65 - 199 [facility] Comment: Diabetes: >=200 mg/dL plus symp toms BUN 31 (H) 10 - 20 mg/dL [facility]OR[facility]ORY Creatinine 1.23 0.80 - 1.50 mg/dL [facility]ORY Sodium 145 135 - 145 mmol/L [facility] Potassium Not Perf 3.5 - 5.0 mmol/L [facility] Comment: Duplicate order Please note: [...] mg/dL [facility] Estimated GFR 58 (L) >=60 [facility] Comment: The reported eGFR should be multiplied b y 1.2 for patients. The MDRD is not an appropriate measure o f renal function for patients with body mass extremes or in patients with acute kidney failure. http://CoTweet/DHnkdep http://CoTweet/DHMCnkf Specimen Anatomical Collection Method Collection Time Receive d Time (Source) Location / / Volume Laterality Blood specimen 07/12/2017 4:11 AM 017 8:57 (specimen) EST AM EST Resulting Agency Comment Spec [facility] CHEMISTRY ORDERABLES Performing Organization Address [facility] Phon e Number [address] (ABNORMAL) Prothrombin Time (07/12/2017 4:11 AM EST) P athologist Signature PT 15.4 (H) 11.8 - 14.0 [facility] LABORATORY INR 1.2 (H) 0.9 - [...] [place] STACIE HEMATOLOGY ORDERABLES Performing Organization Address [facility] Phon e Number [address] Potassium (07/12/2017 4:11 AM EST) P athologist Signature Potassium 3.8 3.5 - 5.0 [facility] mmol/L [facility] Comment: Please note: ??Patients with WBC [...] Wilson APRN CHEMISTRY ORDERABLES Performing Organization Address City/[facility]/ZIP Code Phon e Number [address] POCT Glucose (07/12/2017 4:10 AM EST) athologist Signature POC Glucose 90 65 - 199 [facility] Comment: Supplemental ranges: <140 mg/dL before meals <180 mg/dL all other times of the day Specimen Anatomical Collection Method Collection Time Receive d Time (Source) Location / / Volume Laterality Blood specimen 07/12/2017 4:10 AM 017 4:10 (specimen) EST AM EST Yuan Webber MD POINT OF CARE TEST ORDERABLE S Performing Organization Address City/[facility]/ZIP Code Phon e Number [address] POCT Glucose (07/11/2017 11:57 PM EST) P athologist Signature POC Glucose 98 65 - 199 [facility] Comment: Supplemental ranges: <140 mg/dL before meals <180 mg/dL all other times of the day Specimen Anatomical Collection Method Collection Time Receive d Time (Source) Location / / Volume Laterality Blood specimen 07/11/2017 11:57 7 (specimen) PM EST 11:57 PM EST Yuan Webber MD POINT OF CARE TEST ORDERABLE S Performing Organization Address City/[facility]/[place] [address] POCT Glucose (07/11/2017 8:32 PM EST) P athologist Signature POC Glucose 146 65 - 199 [place] mg/dL [facility] Comment: Supplemental ranges: <140 mg/dL before meals <180 mg/dL all other times of the day Specimen Anatomical Collection Method Collection Time Receive d Time (Source) Location / / Volume Laterality Blood specimen 07/11/2017 8:32 PM 017 8:32 (specimen) EST PM EST Yuan Webber MD POINT OF CARE TEST ORDERABLE S Performing Organization Address City/State/ZIP Code Phon e Number [facility] [address] XR Chest PA & [...] e xtubated, left chest tube removed, and Westlake-Suzi catheter removed since the study. Atelectasis at [...] e xtubated, left chest tube removed, and Westlake-Suzi catheter removed since the study. Atelectasis at [...] (H) 65 - 199 [place] mg/dL [facility] Comment: Supplemental ranges: <140 mg/dL before meals <180 mg/dL all other times of the day Specimen Anatomical Collection Method Collection Time Receive d Time (Source) Location / / Volume Laterality Blood specimen 07/11/2017 4:05 PM 017 4:05 (specimen) EST PM EST Yuan Webber MD POINT OF CARE TEST ORDERABLE S Performing Organization Address City/[facility]/ZIP Code Phon e Number [address] POCT Glucose (07/11/2017 11:55 AM EST) athologist Signature POC Glucose 176 65 - 199 [place] mg/dL [facility] Comment: Supplemental ranges: <140 mg/dL before meals <180 mg/dL all other times of the day Specimen Anatomical Collection Method Collection Time Receive d Time (Source) Location / / Volume Laterality Blood specimen 07/11/2017 11:55 7 (specimen) AM EST 11:55 AM EST Yuan Webber MD POINT OF CARE TEST ORDERABLE S Performing Organization Address City/State/[place] [address] POCT Glucose (07/11/2017 7:53 AM EST) athologist Signature POC Glucose 189 65 - 199 [place] mg/dL [facility] Comment: Supplemental ranges: <140 mg/dL before meals <180 mg/dL all other times of the day Specimen Anatomical Collection Method Collection Time Receive d Time (Source) Location / / Volume Laterality Blood specimen 07/11/2017 7:53 AM 017 7:53 (specimen) EST AM EST Yuan Webber MD POINT OF CARE TEST ORDERABLE S Performing Organization Address City/[facility]/[place] [address] POCT Glucose (07/11/2017 4:22 AM EST) athologist Signature POC Glucose 151 65 - 199 [place] mg/dL [facility] Comment: Supplemental ranges: <140 mg/dL before meals <180 mg/dL all other times of the day Specimen Anatomical Collection Method Collection Time Receive d Time (Source) Location / / Volume Laterality Blood specimen 07/11/2017 4:22 AM 017 4:22 (specimen) EST AM EST Yuan Webber MD POINT OF CARE TEST ORDERABLE S Performing Organization Address City/[facility] [place] [address] Potassium (07/11/2017 2:20 AM EST) athologist Signature Potassium 4.5 3.5 - 5.0 [facility] mmol/L [facility] Comment: Please note: ??Patients with WBC [...] Webber MD CHEMISTRY ORDERABLES Performing Organization Address City/[facility]/ZIP [facility] Phon e Number [address] POCT Glucose (07/11/2017 12:17 AM EST) athologist Signature POC Glucose 162 65 - 199 [facility] mg[facility]dL [facility] Comment: Supplemental ranges: <140 mg/dL before meals <180 mg/dL all other times of the day Specimen Anatomical Collection Method Collection Time Receive d Time (Source) Location / / Volume Laterality Blood specimen 07/11/2017 12:17 7 (specimen) AM EST 12:17 AM EST Yuan Webber MD POINT OF CARE TEST ORDERABLE S Performing Organization Address City/State/[place] [address] POCT Glucose (07/10/2017 8:47 PM EST) athologist Signature POC Glucose 191 65 - 199 [place] mg/dL [facility] Comment: Supplemental ranges: <140 mg/dL before meals <180 mg/dL all other times of the day Specimen Anatomical Collection Method Collection Time Receive d Time (Source) Location / / Volume Laterality Blood specimen 07/10/2017 8:47 PM 017 8:47 (specimen) EST PM EST Yuan Webber MD POINT OF CARE TEST ORDERABLE S Performing Organization Address City/State/[place] [address] POCT Glucose (07/10/2017 4:06 PM EST) athologist Signature POC Glucose 131 65 - 199 [place] mg/dL [facility] Comment: Supplemental ranges: <140 mg/dL before meals <180 mg/dL all other times of the day Specimen Anatomical Collection Method Collection Time Receive d Time (Source) Location / / Volume Laterality Blood specimen 07/10/2017 4:06 PM 017 4:06 (specimen) EST PM EST Yuan Webber MD POINT OF CARE TEST ORDERABLE S Performing Organization Address City/State/[place] [address] POCT Glucose (07/10/2017 3:08 PM EST) athologist Signature POC Glucose 151 65 - 199 [place] mg/dL [facility] LABOR[facility]ORY Comment: Supplemental ranges: <140 mg/dL before meals <180 mg/dL all other times of the day Specimen Anatomical Collection Method Collection Time Receive d Time (Source) Location / / Volume Laterality Blood specimen 07/10/2017 3:08 PM 017 3:08 (specimen) EST PM EST Yuan Webber MD POINT OF CARE TEST ORDERABLE S Performing Organization Address City/State/ZIP Code Phon e Number [address] POCT Glucose (07/10/2017 2:25 PM EST) athologist Signature POC Glucose 146 65 - 199 [place] mg/dL [facility] Comment: Supplemental ranges: <140 mg/dL before meals <180 mg/dL all other times of the day Specimen Anatomical Collection Method Collection Time Receive d Time (Source) Location / / Volume Laterality Blood specimen 07/10/2017 2:25 PM 017 2:25 (specimen) EST PM EST Yuan Webber MD POINT OF CARE TEST ORDERABLE S Performing Organization Address City/[facility]/[place] [address] POCT Glucose (07/10/2017 1:23 PM EST) athologist Signature POC Glucose 166 65 - 199 [place] mg/dL [facility] Comment: Supplemental ranges: <140 mg/dL before meals <180 mg/dL all other times of the day Specimen Anatomical Collection Method Collection Time Receive d Time (Source) Location / / Volume Laterality Blood specimen 07/10/2017 1:23 PM 017 1:23 (specimen) EST PM EST Yuan Webber MD POINT OF CARE TEST ORDERABLE S Performing Organization Address City/State/[place] [address] POCT Glucose (07/10/2017 11:52 AM EST) athologist Signature POC Glucose 157 65 - 199 [facility] mg/dL [facility] Comment: Supplemental ranges: <140 mg/dL before meals <180 mg/dL all other times of the day Specimen Anatomical Collection Method Collection Time Receive d Time (Source) Location / / Volume Laterality Blood specimen 07/10/2017 11:52 7 (specimen) AM EST 11:52 AM EST Yuan Webber MD POINT OF CARE TEST ORDERABLE S Performing Organization Address City/State/ZIP Code Phon e Number [address] POCT Glucose (07/10/2017 11:01 AM EST) P athologist Signature POC Glucose 158 65 - 199 [place] mg/dL [facility] Comment: Supplemental ranges: <140 mg/dL before meals <180 mg/dL all other times of the day Specimen Anatomical Collection Method Collection Time Receive d Time (Source) Location / / Volume Laterality Blood specimen 07/10/2017 11:01 7 (specimen) AM EST 11:01 AM EST Yuan Webber MD POINT OF CARE TEST ORDERABLE S Performing Organization Address City/[facility]/ZIP Code Phon e Number [address] POCT Glucose (07/10/2017 9:54 AM EST) P athologist Signature POC Glucose 160 65 - 199 [place] mg/dL [facility] Comment: Supplemental ranges: <140 mg/dL before meals <180 mg/dL all other times of the day Specimen Anatomical Collection Method Collection Time Receive d Time (Source) Location / / Volume Laterality Blood specimen 07/10/2017 9:54 AM 017 9:54 (specimen) EST AM EST Yuan Webber MD POINT OF CARE TEST ORDERABLE S Performing Organization Address City/State/ZIP Code Phon e Number [address] POCT Glucose (07/10/2017 8:58 AM EST) P athologist Signature POC Glucose 183 65 - 199 [facility] SU mg/dL [facility] Comment: Supplemental ranges: <140 mg/dL before meals <180 mg/dL all other times of the day Specimen Anatomical Collection Method Collection Time Receive d Time (Source) Location / / Volume Laterality Blood specimen 07/10/2017 8:58 AM 017 8:58 (specimen) EST AM EST Yuan Webber MD POINT OF CARE TEST ORDERABLE S Performing Organization Address City/State/[place] [address] POCT Glucose (07/10/2017 8:01 AM EST) athologist Signature POC Glucose 173 65 - 199 [place] mg/dL [facility] Comment: Supplemental ranges: <140 mg/dL before meals <180 mg/dL all other times of the day Specimen Anatomical Collection Method Collection Time Receive d Time (Source) Location / / Volume Laterality Blood specimen 07/10/2017 8:01 AM 017 8:01 (specimen) EST AM EST Yuan Webber MD POINT OF CARE TEST ORDERABLE S Performing Organization Address City/State/[place] [address] POCT Glucose (07/10/2017 7:05 AM EST) athologist Signature POC Glucose 166 65 - 199 [place] mg/dL [facility] Comment: Supplemental ranges: <140 mg/dL before meals <180 mg/dL all other times of the day Specimen Anatomical Collection Method Collection Time Receive d Time (Source) Location / / Volume Laterality Blood specimen 07/10/2017 7:05 AM 017 7:05 (specimen) EST AM EST Yaun Webber MD POINT OF CARE TEST ORDERABLE S Performing Organization Address City/State/[place] [address] POCT Glucose (07/10/2017 6:00 AM EST) athologist Signature POC Glucose 162 65 - 199 [place] mg/dL [facility] Comment: Supplemental ranges: <140 mg/dL before meals <180 mg/dL all other times of the day Specimen Anatomical Collection Method Collection Time Receive d Time (Source) Location / / Volume Laterality Blood specimen 07/10/2017 6:00 AM 017 6:00 (specimen) EST AM EST Yuan Webber MD POINT OF CARE TEST ORDERABLE S Performing Organization Address City/State/ZIP Code Phon e Number [address] (ABNORMAL) Differential, Automated (07/10/2017 4:28 AM EST) [facility] Method Time Signature Neutrophils % 87.9 % [facility] LABORATORY Neutr Abs (ANC) 10.70 (H) 1.70 - [facility] 6.10 [facility] x10(3)/[facility] L LABORATORY Lymphocytes % 3.9 % [facility] LABORATORY Lymphocytes Abs 0.5 (L) 0.9 - 3.2 [facility] x10(3)/[facility] LABORATORY Monocytes % 7.0 % [facility] LABORATORY Monocyte Abs 0.8 0.3 - 0.9 [facility] x10(3)/[facility] LABORATORY Eosinophils % 0.3 % [facility] LABORATORY Eosinophils Abs 0.0 0.0 - 0.4 [facility] x10(3)/[facility] LABORATORY Basophils % 0.2 % [facility] LABORATORY Basophils Abs 0.0 0.0 - 0.1 [facility] x10(3)/[facility] LABORATORY Immature Gran % 0.70 % [place] [...] Gran Abs 0.08 (H) 0.00 - 0.04 x10(3)/[facility] LABORATORY Specimen Anatomical Collection Method Collection Time Receive d Time (Source) Location / / Volume Laterality Blood specimen 07/10/2017 4:28 AM 017 4:36 (specimen) EST AM EST Resulting Agency Comment Spec In Lab Yuan Webber MD HEMATOLOGY ORDERABLES Performing Organization Address City/State/ZIP Code Phon e Number [place] [id number] (ABNORMAL) Hemogram (07/10/2017 4:28 AM EST) Analysis Performed At Patho logist Time Signature WBC 12.2 (H) 4.0 - 9.5 [facility] x10(3)/[facility] LABORATORY RBC 3.31 (L) 4.58 - [facility] 5.54 [facility] x10(6)/[facility] LABORATORY Hemoglobin 9.8 (L) 13.7 - [facility] 16.5 gm/dL [facility] LABORATORY Hematocrit 30.0 (L) 40.5 - [facility] 48.5 % [facility] LABORATORY MCV 90.6 82.9 - [facility] 93.1 [facility] LABORATORY MCH 29.6 27.5 - [facility] 32.1 pg [facility] LABORATORY MCHC 32.7 32.0 - [facility] 35.7 gm/dL [facility] LABORATORY Platelets 135 (L) 145 - 357 [facility] x10(3)/[facility] LABORATORY RDWSD 50.8 (H) 36.0 - [facility] 45.0 [facility] LABORATORY RDWCV 15.4 (H) 11.4 - [facility] 13.8 % [facility] LABORATORY MPV 10.0 7.6 - 12.9 [facility] LABORATORY nRBC % Auto 0.0 % [facility] LABORATORY nRBC Abs Auto 0.000 0.000 - [facility] 0.000 [facility] x10(3)/[facility] LABORATORY Specimen Anatomical Collection Method Collection Time Receive d Time (Source) Location / / Volume Laterality Blood specimen 07/10/2017 4:28 AM 017 4:36 (specimen) EST AM EST Resulting Agency Comment Spec In Lab Yuan Webber MD HEMATOLOGY ORDERABLES Performing Organization Address City/State/[place] [address] (ABNORMAL) Basic Metabolic Panel (non-fasting) (07/10/2017 4:28 AM EST) P athologist Signature Glucose Lvl 178 65 - 199 [facility] mg/dL [facility] LABORATORY Comment: Diabetes: >=200 mg/dL plus symp toms BUN 20 10 - 20 mg/dL [facility] LABORATORY Creatinine 1.19 0.80 - 1.50 mg/dL [facility] LABORATORY Sodium 143 135 - 145 mmol/L [facility] LABORATORY Potassium 4.6 3.5 - 5.0 mmol/L [facility] [...] Calcium 7.4 (L) 8.5 - 10.5 mg/dL [facility] LABORATORY Estimated GFR 60 >=60 [facility] LABORATORY Comment: The reported eGFR should be multiplied b y 1.2 for patients. The MDRD is not an appropriate measure o f renal function for patients with body mass extremes or in patients with acute kidney failure. http://CoTweet/DHnkdep http://CoTweet/DHMCnkf Specimen Anatomical Collection Method Collection Time Receive d Time (Source) Location / / Volume Laterality Blood specimen 07/10/2017 4:28 AM 017 4:36 (specimen) EST AM EST Resulting Agency Comment Spec In Lab Yuan Webber MD CHEMISTRY ORDERABLES Performing Organization Address City/State/Z[place] [address] POCT Glucose (07/10/2017 4:26 AM EST) P athologist Signature POC Glucose 176 65 - 199 [facility] mg/dL [facility] LABORATORY Comment: Supplemental ranges: <140 mg/dL before meals <180 mg/dL all other times of the day Specimen Anatomical Collection Method Collection Time Receive d Time (Source) Location / / Volume Laterality Blood specimen 07/10/2017 4:26 AM 017 4:26 (specimen) EST AM EST Yuan Webber MD POINT OF CARE TEST ORDERABLE S Performing Organization Address City/[facility]/[place] [address] (ABNORMAL) POCT Glucose (07/10/2017 3:06 AM EST) P athologist Signature POC Glucose 204 (H) 65 - 199 [place] mg/dL [facility] LAB[facility]ORY Comment: Supplemental ranges: <140 mg/dL before meals <180 mg/dL all other times of the day Specimen Anatomical Collection Method Collection Time Receive d Time (Source) Location / / Volume Laterality Blood specimen 07/10/2017 3:06 AM 017 3:06 (specimen) EST AM EST Yuan Webber MD POINT OF CARE TEST ORDERABLE S Performing Organization Address City/[facility]/[place] [address] (ABNORMAL) POCT Glucose (07/10/2017 2:10 AM EST) P athologist Signature POC Glucose 203 (H) 65 - 199 [place] mg/dL [facility] LAB[facility]ORY Comment: Supplemental ranges: <140 mg/dL before meals <180 mg/dL all other times of the day Specimen Anatomical Collection Method Collection Time Receive d Time (Source) Location / / Volume Laterality Blood specimen 07/10/2017 2:10 AM 017 2:10 (specimen) EST AM EST Yuan Webber MD POINT OF CARE TEST ORDERABLE S Performing Organization Address City/State/[place] [address] POCT Glucose (07/10/2017 1:09 AM EST) P athologist Signature POC Glucose 196 65 - 199 [place] mg/dL [facility] LAB[facility]ORY Comment: Supplemental ranges: <140 mg/dL before meals <180 mg/dL all other times of the day Specimen Anatomical Collection Method Collection Time Receive d Time (Source) Location / / Volume Laterality Blood specimen 07/10/2017 1:09 AM 017 1:09 (specimen) EST AM EST Yuan Webber MD POINT OF CARE TEST ORDERABLE S Performing Organization Address City/State/ZIP Code Phon e Number [address] POCT Glucose (07/10/2017 12:10 AM EST) P athologist Signature POC Glucose 173 65 - 199 [place] mg/dL [facility]ORY Comment: Supplemental ranges: <140 mg/dL before meals <180 mg/dL all other times of the day Specimen Anatomical Collection Method Collection Time Receive d Time (Source) Location / / Volume Laterality Blood specimen 07/10/2017 12:10 7 (specimen) AM EST 12:10 AM EST Yuan Webber MD POINT OF CARE TEST ORDERABLE S Performing Organization Address City/State/ZIP Code Phon e Number [address] POCT Glucose (07/09/2017 11:01 PM EST) P athologist Signature POC Glucose 140 65 - 199 [place] mg/dL [facility] LAB[facility]ORY Comment: Supplemental ranges: <140 mg/dL before meals <180 mg/dL all other times of the day Specimen Anatomical Collection Method Collection Time Receive d Time (Source) Location / / Volume Laterality Blood specimen 07/09/2017 11:01 7 (specimen) PM EST 11:01 PM EST Yuan Webber MD POINT OF CARE TEST ORDERABLE S Performing Organization Address City/State/[place] [address] POCT Glucose (07/09/2017 10:05 PM EST) P athologist Signature POC Glucose 144 65 - 199 [facility] SU mg/dL [facility]ORY Comment: Supplemental ranges: <140 mg/dL before meals <180 mg/dL all other times of the day Specimen Anatomical Collection Method Collection Time Receive d Time (Source) Location / / Volume Laterality Blood specimen 07/09/2017 10:05 7 (specimen) PM EST 10:05 PM EST Yuan Webber MD POINT OF CARE TEST ORDERABLE S Performing Organization Address City/[facility]/ZIP Code Phon e Number [address] POCT Glucose (07/09/2017 9:31 PM EST) athologist Signature POC Glucose 121 65 - 199 [place] mg/dL [facility]ORY Comment: Supplemental ranges: <140 mg/dL before meals <180 mg/dL all other times of the day Specimen Anatomical Collection Method Collection Time Receive d Time (Source) Location / / Volume Laterality Blood specimen 07/09/2017 9:31 PM 017 9:31 (specimen) EST PM EST Yuan Webber MD POINT OF CARE TEST ORDERABLE S Performing Organization Address City/[facility]/ZIP Code Phon e Number [address] POCT Glucose (07/09/2017 9:03 PM EST) athologist Signature POC Glucose 98 65 - 199 [place] mg/dL [facility]ORY Comment: Supplemental ranges: <140 mg/dL before meals <180 mg/dL all other times of the day Specimen Anatomical Collection Method Collection Time Receive d Time (Source) Location / / Volume Laterality Blood specimen 07/09/2017 9:03 PM 017 9:03 (specimen) EST PM EST Yuan Webber MD POINT OF CARE TEST ORDERABLE S Performing Organization Address City/State/ZIP Code Phon e Number [address] POCT Glucose (07/09/2017 8:09 PM EST) athologist Signature POC Glucose 117 65 - 199 [facility] SU mg/dL [facility] LAB[facility]ORY Comment: Supplemental ranges: <140 mg/dL before meals <180 mg/dL all other times of the day Specimen Anatomical Collection Method Collection Time Receive d Time (Source) Location / / Volume Laterality Blood specimen 07/09/2017 8:09 PM 017 8:09 (specimen) EST PM EST Yuan Webber MD POINT OF CARE TEST ORDERABLE S Performing Organization Address City/State/[place] [address] POCT Glucose (07/09/2017 5:40 PM EST) athologist Signature POC Glucose 155 65 - 199 [place] mg/dL [facility] Comment: Supplemental ranges: <140 mg/dL before meals <180 mg/dL all other times of the day Specimen Anatomical Collection Method Collection Time Receive d Time (Source) Location / / Volume Laterality Blood specimen 07/09/2017 5:40 PM 017 5:40 (specimen) EST PM EST Yuan Webber MD POINT OF CARE TEST ORDERABLE S Performing Organization Address City/State/[place] [address] POCT Glucose (07/09/2017 4:24 PM EST) athologist Signature POC Glucose 164 65 - 199 [place] mg/dL [facility]ORY Comment: Supplemental ranges: <140 mg/dL before meals <180 mg/dL all other times of the day Specimen Anatomical Collection Method Collection Time Receive d Time (Source) Location / / Volume Laterality Blood specimen 07/09/2017 4:24 PM 017 4:24 (specimen) EST PM EST Yuan Webber MD POINT OF CARE TEST ORDERABLE S Performing Organization Address City/State/[place] [address] POCT Glucose (07/09/2017 3:19 PM EST) athologist Signature POC Glucose 166 65 - 199 [place] mg/dL [facility] LAB[facility]ORY Comment: Supplemental ranges: <140 mg/dL before meals <180 mg/dL all other times of the day Specimen Anatomical Collection Method Collection Time Receive d Time (Source) Location / / Volume Laterality Blood specimen 07/09/2017 3:19 PM 017 3:19 (specimen) EST PM EST Yuan Webber MD POINT OF CARE TEST ORDERABLE S Performing Organization Address City/State/[place] [address] POCT Glucose (07/09/2017 2:26 PM EST) athologist Signature POC Glucose 179 65 - 199 [place] mg/dL [facility]ORY Comment: Supplemental ranges: <140 mg/dL before meals <180 mg/dL all other times of the day Specimen Anatomical Collection Method Collection Time Receive d Time (Source) Location / / Volume Laterality Blood specimen 07/09/2017 2:26 PM 017 2:26 (specimen) EST PM EST Yuan Webber MD POINT OF CARE TEST ORDERABLE S Performing Organization Address City/[facility]/[place] [address] (ABNORMAL) POCT Glucose (07/09/2017 1:29 PM EST) athologist Signature POC Glucose 210 (H) 65 - 199 [place] mg/dL [facility] LAB[facility]ORY Comment: Supplemental ranges: <140 mg/dL before meals <180 mg/dL all other times of the day Specimen Anatomical Collection Method Collection Time Receive d Time (Source) Location / / Volume Laterality Blood specimen 07/09/2017 1:29 PM 017 1:29 (specimen) EST PM EST Yuan Webber MD POINT OF CARE TEST ORDERABLE S Performing Organization Address City/[facility]/[place] [address] POCT Glucose (07/09/2017 12:20 PM EST) athologist Signature POC Glucose 172 65 - 199 [place] mg/dL [facility] LAB[facility]ORY Comment: Supplemental ranges: <140 mg/dL before meals <180 mg/dL all other times of the day Specimen Anatomical Collection Method Collection Time Receive d Time (Source) Location / / Volume Laterality Blood specimen 07/09/2017 12:20 7 (specimen) PM EST 12:20 PM EST Yuan Webber MD POINT OF CARE TEST ORDERABLE S Performing Organization Address City/State/ZIP Code Phon e Number [address] POCT Glucose (07/09/2017 11:24 AM EST) P athologist Signature POC Glucose 156 65 - 199 [place] mg/dL [facility] LABOR[facility]ORY Comment: Supplemental ranges: <140 mg/dL before meals <180 mg/dL all other times of the day Specimen Anatomical Collection Method Collection Time Receive d Time (Source) Location / / Volume Laterality Blood specimen 07/09/2017 11:24 7 (specimen) AM EST 11:24 AM EST Yuan Webber MD POINT OF CARE TEST ORDERABLE S Performing Organization Address City/State/ZIP Code Phon e Number [address] POCT Glucose (07/09/2017 11:11 AM EST) athologist Signature POC Glucose 172 65 - 199 [place] mg/dL [facility] LAB[facility]ORY Comment: Supplemental ranges: <140 mg/dL before meals <180 mg/dL all other times of the day Specimen Anatomical Collection Method Collection Time Receive d Time (Source) Location / / Volume Laterality Blood specimen 07/09/2017 11:11 7 (specimen) AM EST 11:11 AM EST Yuan Webber MD POINT OF CARE TEST ORDERABLE S Performing Organization Address City/State/ZIP Code Phon e Number [address] POCT Glucose (07/09/2017 10:08 AM EST) P athologist Signature POC Glucose 176 65 - 199 [place] mg/dL [facility] LAB[facility]ORY Comment: Supplemental ranges: <140 mg/dL before meals <180 mg/dL all other times of the day Specimen Anatomical Collection Method Collection Time Receive d Time (Source) Location / / Volume Laterality Blood specimen 07/09/2017 10:08 7 (specimen) AM EST 10:08 AM EST Yuan Webber MD POINT OF CARE TEST ORDERABLE S Performing Organization Address City/State/Z[place] [address] POCT Glucose (07/09/2017 8:02 AM EST) P athologist Signature POC Glucose 178 65 - 199 [facility] mg/dL [facility] LABORATORY Comment: Supplemental ranges: <140 mg/dL before meals <180 mg/dL all other times of the day Specimen Anatomical Collection Method Collection Time Receive d Time (Source) Location / / Volume Laterality Blood specimen 07/09/2017 8:02 AM 017 8:02 (specimen) EST AM EST Yuan Webber MD POINT OF CARE TEST ORDERABLE S Performing Organization Address City/State/Z[place] [address] (ABNORMAL) BLOOD GAS 2 ARTERIAL (07/09/2017 5:37 AM EST) Analysis Performed At Patho logist Time Signature pH Art 7.36 7.35 - [facility] 7.45 [facility] LABORATORY pCO2 Art 38 35 - 45 [facility] mmHg [facility] LABORATORY pO2 Art 79 (L) 85 - 104 [facility] LABORATORY HCO3 Art 20.9 20.0 - [facility] 26.0 [facility] mmol/L [facility] LABORATORY BE Art -4.6 (L) -3.0 - 3.0 [facility] mmol/L [facility] LABORATORY Hgb Blood Gas 10.5 (L) 13.7 - [facility] 16.5 gm/dL [facility] LABORATORY O2HB Art 93.8 (L) 94.0 - [facility] 97.0 % [facility] LABORATORY COHB Art 0.3 % [facility] LABORATORY Comment: Nonsmokers: 0.5-1.5% COHB Smokers: Variable, but usually less than 10% Toxic: 20-30% COHB Lethal: Greater than 60% COHB METHB Art 0.6 <=1.5 % [facility] LABORATORY Na Whole Blood [...] [facility] LABORATORY FIO2 Art 40 % [facility] LABORATORY PF Ratio Art 198 [facility] LABORATORY Specimen Anatomical Collection Method Collection Time Receive d Time (Source) Location / / Volume Laterality Blood specimen 07/09/2017 5:37 AM 017 5:37 (specimen) EST AM EST Yuan Webber MD CHEMISTRY ORDERABLES Performing Organization Address City/[facility]/ZIP Code Phon e Number [address] POCT Glucose (07/09/2017 3:27 AM EST) athologist Signature POC Glucose 192 65 - 199 [facility] mg/dL [facility] LABORATORY Comment: Supplemental ranges: <140 mg/dL before meals <180 mg/dL all other times of the day Specimen Anatomical Collection Method Collection Time Receive d Time (Source) Location / / Volume Laterality Blood specimen 07/09/2017 3:27 AM 017 3:27 (specimen) EST AM EST Yuan Webber MD POINT OF CARE TEST ORDERABLE S Performing Organization Address City/[facility]/[place] [address] (ABNORMAL) Basic Metabolic Panel (non-fasting) (07/09/2017 2:30 AM EST) P athologist Signature Glucose Lvl 179 65 - 199 [facility] mg/dL [facility] LABORATORY Comment: Diabetes: >=200 mg/dL plus symp toms BUN 17 10 - 20 mg/dL [facility] LABORATORY Creatinine 1.34 0.80 - 1.50 mg/dL [facility] LABORATORY Sodium 144 135 - 145 mmol/L [facility] LABORATORY Potassium Not Perf 3.5 - 5.0 mmol/L [facility] LABORATORY Comment: Duplicate order Please note: [...] Calcium 7.1 (L) 8.5 - 10.5 mg/dL [facility] LABORATORY Comment: result rechecked-[id number] Estimated GFR 53 (L) >=60 [facility] LABORATORY Comment: The reported eGFR should be multiplied b y 1.2 for patients. The MDRD is not an appropriate measure o f renal function for patients with body mass extremes or in patients with acute kidney failure. http://CoTweet/DHnkdep [email or web address]/DHMCnkf Specimen Anatomical Collection Method Collection Time Receive d Time (Source) Location / / Volume Laterality Blood specimen Venous Draw / 07/09/2017 2:30 AM 2016 2:42 (specimen) Unknown EST AM EST Resulting Agency Comment Spec In Lab Yuan Webber MD CHEMISTRY ORDERABLES Performing Organization Address City/State/[place] [address] (ABNORMAL) Potassium (07/09/2017 2:30 AM EST) P athologist Signature Potassium 5.1 (H) 3.5 - 5.0 [facility] mmol/L [facility] LABORATORY Comment: Please note: ??Patients with WBC [...] Organization Address City/State/ZIP [place] [address] (ABNORMAL) Hemogram (07/09/2017 2:30 AM EST) Analysis Performed At Patho logist Time Signature WBC 12.5 (H) 4.0 - 9.5 [facility] x[facility] LABORATORY RBC 3.38 (L) 4.58 - [facility] SU 5.54 [facility] x10(6)/[facility] LABORATORY Hemoglobin 10.1 (L) 13.7 - [facility] SU 16.5 gm/dL [facility] LABORATORY Hematocrit 30.3 (L) 40.5 - [facility] SU 48.5 % [facility] LABORATORY MCV 89.6 82.9 - [facility] SU 93.1 [facility] LABORATORY MCH 29.9 27.5 - [facility] 32.1 pg [facility] LABORATORY MCHC 33.3 32.0 - [facility] 35.7 gm/dL [facility] LABORATORY Platelets 127 (L) 145 - 357 [facility] x[facility](3[facility] LABORATORY RDWSD 49.3 (H) 36.0 - [facility] 45.0 [facility] LABORATORY RDWCV 15.2 (H) 11.4 - [facility] 13.8 % [facility] LABORATORY MPV 9.9 7.6 - 12.9 [facility] LABORATORY nRBC % Auto 0.0 % [facility] LABORATORY nRBC Abs Auto 0.000 0.000 - [facility] 0.000 [facility] x10(3)/[facility] LABORATORY Specimen Anatomical Collection Method Collection Time Receive d Time (Source) Location / / Volume Laterality Blood specimen 07/09/2017 2:30 AM 017 2:41 (specimen) EST AM EST Resulting Agency Comment Spec In Lab Yuan Webber MD HEMATOLOGY ORDERABLES Performing Organization Address City/[facility]/[place] [address] POCT Glucose (07/09/2017 2:10 AM EST) P athologist Signature POC Glucose 169 65 - 199 [facility] mg/dL [facility] LABORATORY Comment: Supplemental ranges: <140 mg/dL before meals <180 mg/dL all other times of the day Specimen Anatomical Collection Method Collection Time Receive d Time (Source) Location / / Volume Laterality Blood specimen 07/09/2017 2:10 AM 017 2:10 (specimen) EST AM EST Yuan Webber MD POINT OF CARE TEST ORDERABLE S Performing Organization Address City/[facility]/[place] [address] POCT Glucose (07/09/2017 1:01 AM EST) P athologist Signature POC Glucose 173 65 - 199 [facility] mg/dL [facility] LABORATORY Comment: Supplemental ranges: <140 mg/dL before meals <180 mg/dL all other times of the day Specimen Anatomical Collection Method Collection Time Receive d Time (Source) Location / / Volume Laterality Blood specimen 07/09/2017 1:01 AM 017 1:01 (specimen) EST AM EST Yuan Webber MD POINT OF CARE TEST ORDERABLE S Performing Organization Address City/[facility]/[place] [address] Blood culture (07/09/2017 12:40 AM EST) Patholo gist Method Time Signature Blood Culture No growth [facility] at 5 days. [facility] LABORATORY Specimen Anatomical Collection Method Collection Time Receive d Time (Source) Location / / Volume Laterality Blood specimen STRUCTURE OF RIGHT 07/09/2017 12:40 3:58 (specimen) UPPER LIMB / AM EST AM EST Unknown Resulting Agency Comment Spec In Lab Yuan Webber MD MICROBIOLOGY - BLOOD ORDERAB LES Performing Organization Address City/State/[place] [address] Blood culture (07/09/2017 12:30 AM EST) [facility] Method Time Signature Blood Culture No growth [facility] DAVIS at 5 days. [facility] LABORATORY Specimen Anatomical Collection Method Collection Time Receive d Time (Source) Location / / Volume Laterality Blood specimen STRUCTURE OF LEFT 07/09/2017 12:30 1211/2016 3:59 (specimen) UPPER LIMB / AM EST AM EST Unknown Resulting Agency Comment Spec In Lab Yuan Webber MD MICROBIOLOGY - BLOOD ORDERAB LES Performing Organization Address City/[facility]/[place] [address] (ABNORMAL) Urinalysis Microscopic Exam (07/09/2017 12:05 AM EST) Analysis Performed At Patho logist Time Signature RBC UA 32 (H) 0 - 3 /HPF [facility] LABORATORY WBC UA 5 (H) 0 - 3 /HPF [facility] LABORATORY Squam Epith UA <1 <=4 /HPF [facility] LABORATORY Hyaline Cast 17 (H) 0 - 2 /LPF [facility] LABORATORY Gran Cast UA 1 (H) <=0 /LPF [facility] LABORATORY Uric Ac Bianca Rare (A) None /HPF [facility] LABORATORY Specimen (Source) Anatomical Collection Method Collection Time Re ceived Time Location / / Volume Laterality Urine specimen 07/09/2017 12:05 7 obtained via AM EST 12:39 AM EST indwelling urinary catheter (specimen) Resulting Agency Comment Spec In Lab Yuan Webber MD URINE ORDERABLES Performing Organization Address City/[facility]/[place] [address] (ABNORMAL) Urinalysis with reflex Culture (07/09/2017 12:05 AM EST) [facility] iRise Method Time Signature Glucose UA Negative Negative [facility] mg/dL [facility] LABORATORY Protein UA 30 (A) Negative [facility]dL [facility]ORY Bilirubin UA Negative Negative [facility] mg/dL [facility] LAB[facility]ORY Comment: Clinical correlation required for positi ve Urine Bilirubin results as false positive may occur with some drugs and d rug related products. If a false positive is suspected a serum total bili yeager should be considered if clinically indicated. Urobilinogen UA Normal Normal mg/dL [facility] LABORATORY pH UA 5.0 5.0 - 8.0 [facility] LABORATORY Blood UA Moderate (A) Negative mg/dL [facility] LABORATORY Ketones UA Negative Negative mg/dL [facility] LABORATORY Nitrite UA Negative Negative [facility] LABORATORY Leukocytes UA Negative Negative [facility] LABORATORY Appearance UA Hazy (A) Clear [facility] LABORATORY Spec [place] UA 1.025 1.002 - 1.030 [facility] LABORATORY Color UA Yellow Yellow [facility] LABORATORY Culture Reflexed No [facility] LABORATORY Specimen (Source) Anatomical Collection Method Collection Time Re ceived Time Location / / Volume Laterality Urine specimen 07/09/2017 12:05 7 obtained via AM EST 12:39 AM EST indwelling urinary catheter (specimen) Resulting Agency Comment Spec In Lab Yuan Webber MD URINE ORDERABLES Performing Organization Address City/State/ZIP [place] [address] POCT Glucose (07/08/2017 11:01 PM EST) P athologist Signature POC Glucose 191 65 - 199 [facility] mg/dL [facility] LAB[facility]ORY Comment: Supplemental ranges: <140 mg/dL before meals <180 mg/dL all other times of the day Specimen Anatomical Collection Method Collection Time Receive d Time (Source) Location / / Volume Laterality Blood specimen 07/08/2017 11:01 7 (specimen) PM EST 11:01 PM EST Yuan Webber MD POINT OF CARE TEST ORDERABLE S Performing Organization Address City/State/[place] [address] POCT Glucose (07/08/2017 10:04 PM EST) athologist Signature POC Glucose 198 65 - 199 [facility] mg/dL [facility] LAB[facility]ORY Comment: Supplemental ranges: <140 mg/dL before meals <180 mg/dL all other times of the day Specimen Anatomical Collection Method Collection Time Receive d Time (Source) Location / / Volume Laterality Blood specimen 07/08/2017 10:04 7 (specimen) PM EST 10:04 PM EST Yuan Webber MD POINT OF CARE TEST ORDERABLE S Performing Organization Address City/State/[place] [address] Prepare Albumin 5% in 250 mL (07/08/2017 8:49 PM EST) athologist Signature Dispensed? Yes [facility] LABORATORY Specimen Anatomical Collection Method Collection Time Receive d Time (Source) Location / / Volume Laterality Blood specimen No Charge / 07/08/2017 8:49 PM 017 8:51 (specimen) Unknown EST PM EST Resulting Agency Comment Spec In Lab [facility] ORDERABLES Performing Organization Address City/State/[place] [address] POCT Glucose (07/08/2017 8:28 PM EST) athologist Signature POC Glucose 195 65 - 199 [facility] mg/dL [facility] LAB[facility]ORY Comment: Supplemental ranges: <140 mg/dL before meals <180 mg/dL all other times of the day Specimen Anatomical Collection Method Collection Time Receive d Time (Source) Location / / Volume Laterality Blood specimen 07/08/2017 8:28 PM 017 8:28 (specimen) EST PM EST Yuan Webber MD POINT OF CARE TEST ORDERABLE S Performing Organization Address City/State/[place] [address] (ABNORMAL) POCT Glucose (07/08/2017 7:13 PM EST) P athologist Signature POC Glucose 220 (H) 65 - 199 [facility] mg/dL [facility] LAB[facility]ORY Comment: Supplemental ranges: <140 mg/dL before meals <180 mg/dL all other times of the day Specimen Anatomical Collection Method Collection Time Receive d Time (Source) Location / / Volume Laterality Blood specimen 07/08/2017 7:13 PM 017 7:13 (specimen) EST PM EST Yuan Webber MD POINT OF CARE TEST ORDERABLE S Performing Organization Address City/State/ZIP Code Phon e Number [address] POCT Glucose (07/08/2017 5:04 PM EST) athologist Signature POC Glucose 147 65 - 199 [facility] LABORATORY Comment: Supplemental ranges: <140 mg/dL before meals <180 mg/dL all other times of the day Specimen Anatomical Collection Method Collection Time Receive d Time (Source) Location / / Volume Laterality Blood specimen 07/08/2017 5:04 PM 017 5:04 (specimen) EST PM EST Yuan Webber MD POINT OF CARE TEST ORDERABLE S Performing Organization Address City/State/[place] [address] (ABNORMAL) BLOOD GAS 2 ARTERIAL (07/08/2017 4:13 PM EST) Analysis Performed At Patho logist Time Signature pH Art 7.38 7.35 - [facility] 7.45 [facility] LABORATORY pCO2 Art 36 35 - 45 [facility] LABORATORY pO2 Art 91 85 - 104 [facility] LABORATORY HCO3 Art 20.9 20.0 - [facility] 26.0 [facility] mmol/L [facility] LABORATORY BE Art -4.2 (L) -3.0 - 3.0 [facility] mmol/L [facility] LABORATORY Hgb Blood Gas 11.7 (L) 13.7 - [facility] 16.5 gm/dL [facility] LABORATORY O2HB Art 95.1 94.0 - [facility] 97.0 % [facility] LABORATORY COHB Art 0.6 % [facility] LABORATORY Comment: Nonsmokers: 0.5-1.5% COHB Smokers: Variable, but usually less than 10% Toxic: 20-30% COHB Lethal: Greater than 60% COHB METHB Art 0.6 <=1.5 % [facility] LABORATORY Na Whole Blood [...] [facility] LABORATORY FIO2 Art 40 % [facility] LABORATORY PF Ratio Art 228 [facility] LABORATORY Specimen Anatomical Collection Method Collection Time Receive d Time (Source) Location / / Volume Laterality Blood specimen 07/08/2017 4:13 PM 017 4:13 (specimen) EST PM EST Yuan Webber MD CHEMISTRY ORDERABLES Performing Organization Address City/State/ZIP [place] [address] POCT Glucose (07/08/2017 4:01 PM EST) P athologist Signature POC Glucose 148 65 - 199 [facility] mg/dL [facility] LABORATORY Comment: Supplemental ranges: <140 mg/dL before meals <180 mg/dL all other times of the day Specimen Anatomical Collection Method Collection Time Receive d Time (Source) Location / / Volume Laterality Blood specimen 07/08/2017 4:01 PM 017 4:01 (specimen) EST PM EST Yuan Webber MD POINT OF CARE TEST ORDERABLE S Performing Organization Address City/State/ZIP Code Phon e Number [address] POCT Glucose (07/08/2017 3:21 PM EST) athologist Signature POC Glucose 118 65 - 199 [facility] mg/dL [facility] LABORATORY Comment: Supplemental ranges: <140 mg/dL before meals <180 mg/dL all other times of the day Specimen Anatomical Collection Method Collection Time Receive d Time (Source) Location / / Volume Laterality Blood specimen 07/08/2017 3:21 PM 017 3:21 (specimen) EST PM EST Yuan Webber MD POINT OF CARE TEST ORDERABLE S Performing Organization Address City/[facility]/ZIP Code Phon e Number [address] POCT Glucose (07/08/2017 2:01 PM EST) athologist Signature POC Glucose 129 65 - 199 [facility] mg/dL [facility] LABORATORY Comment: Supplemental ranges: <140 mg/dL before meals <180 mg/dL all other times of the day Specimen Anatomical Collection Method Collection Time Receive d Time (Source) Location / / Volume Laterality Blood specimen 07/08/2017 2:01 PM 017 2:01 (specimen) EST PM EST Yuan Webber MD POINT OF CARE TEST ORDERABLE S Performing Organization Address City/State/[place] [address] POCT Glucose (07/08/2017 11:53 AM EST) athologist Signature POC Glucose 156 65 - 199 [facility] mg/dL [facility] LABORATORY Comment: Supplemental ranges: <140 mg/dL before meals <180 mg/dL all other times of the day Specimen Anatomical Collection Method Collection Time Receive d Time (Source) Location / / Volume Laterality Blood specimen 07/08/2017 11:53 7 (specimen) AM EST 11:53 AM EST Yuan Webber MD POINT OF CARE TEST ORDERABLE S Performing Organization Address City/State/ZIP Code Phon e Number [address] POCT Glucose (07/08/2017 11:04 AM EST) athologist Signature POC Glucose 181 65 - 199 [facility] LABORATORY Comment: Supplemental ranges: <140 mg/dL before meals <180 mg/dL all other times of the day Specimen Anatomical Collection Method Collection Time Receive d Time (Source) Location / / Volume Laterality Blood specimen 07/08/2017 11:04 7 (specimen) AM EST 11:04 AM EST Yuan Webber MD POINT OF CARE TEST ORDERABLE S Performing Organization Address City/[facility]/[place] [address] (ABNORMAL) POCT Glucose (07/08/2017 9:24 AM EST) athologist Signature POC Glucose 203 (H) 65 - 199 [facility] mg/dL [facility] LAB[facility]ORY Comment: Supplemental ranges: <140 mg/dL before meals <180 mg/dL all other times of the day Specimen Anatomical Collection Method Collection Time Receive d Time (Source) Location / / Volume Laterality Blood specimen 07/08/2017 9:24 AM 017 9:24 (specimen) EST AM EST Yuan Webber MD POINT OF CARE TEST ORDERABLE S Performing Organization Address City/[facility]/[place] [address] APTT (07/08/2017 8:40 AM EST) athologist Signature PTT 33 25 - 35 sec [facility] LABORATORY Comment: The recommended therapeutic range for fu ll dose, unfractionated heparin at [facility] is 80 ? 114 [...] Webber MD HEMATOLOGY ORDERABLES Performing Organization Address City/[facility]/[place] [address] (ABNORMAL) Prothrombin Time (07/08/2017 8:40 AM EST) P athologist Signature PT 15.6 (H) 11.8 - 14.0 [facility] LABORATORY INR 1.3 (H) 0.9 [...] Webber MD HEMATOLOGY ORDERABLES Performing Organization Address City/[facility]/[place] [address] (ABNORMAL) POCT Glucose (07/08/2017 7:38 AM EST) P athologist Signature POC Glucose 232 (H) 65 - 199 [facility] mg/dL [facility] LABORATORY Comment: Supplemental ranges: <140 mg/dL before meals <180 mg/dL all other times of the day Specimen Anatomical Collection Method Collection Time Receive d Time (Source) Location / / Volume Laterality Blood specimen 07/08/2017 7:38 AM 017 7:38 (specimen) EST AM EST Yuan Webber MD POINT OF CARE TEST ORDERABLE S Performing Organization Address City/State/[place] [address] (ABNORMAL) POCT Glucose (07/08/2017 7:07 AM EST) athologist Signature POC Glucose 234 (H) 65 - 199 [facility] mg/dL [facility] LAB[facility]ORY Comment: Supplemental ranges: <140 mg/dL before meals <180 mg/dL all other times of the day Specimen Anatomical Collection Method Collection Time Receive d Time (Source) Location / / Volume Laterality Blood specimen 07/08/2017 7:07 AM 017 7:07 (specimen) EST AM EST Yuan Webber MD POINT OF CARE TEST ORDERABLE S Performing Organization Address City/State/[place] [address] (ABNORMAL) POCT Glucose (07/08/2017 6:04 AM EST) athologist Signature POC Glucose 225 (H) 65 - 199 [facility] mg/dL [facility] LAB[facility]ORY Comment: Supplemental ranges: <140 mg/dL before meals <180 mg/dL all other times of the day Specimen Anatomical Collection Method Collection Time Receive d Time (Source) Location / / Volume Laterality Blood specimen 07/08/2017 6:04 AM 017 6:04 (specimen) EST AM EST Yuan Webber MD POINT OF CARE TEST ORDERABLE S Performing Organization Address City/State/[place] [address] (ABNORMAL) POCT Glucose (07/08/2017 5:31 AM EST) athologist Signature POC Glucose 216 (H) 65 - 199 [facility] mg/dL [facility] LAB[facility]ATORY Comment: Supplemental ranges: <140 mg/dL before meals <180 mg/dL all other times of the day Specimen Anatomical Collection Method Collection Time Receive d Time (Source) Location / / Volume Laterality Blood specimen 07/08/2017 5:31 AM 017 5:31 (specimen) EST AM EST Yuan Webber MD POINT OF CARE TEST ORDERABLE S Performing Organization Address City/State/[place] [address] (ABNORMAL) POCT Glucose (07/08/2017 4:52 AM EST) P athologist Signature POC Glucose 257 (H) 65 - 199 [facility] mg/dL [facility] LABORATORY Comment: Supplemental ranges: <140 mg/dL before meals <180 mg/dL all other times of the day Specimen Anatomical Collection Method Collection Time Receive d Time (Source) Location / / Volume Laterality Blood specimen 07/08/2017 4:52 AM 017 4:52 (specimen) EST AM EST Daphne Shahid MD POINT OF CARE TEST ORDERABLE S Performing Organization Address City/State/Z[place] [address] (ABNORMAL) BLOOD GAS 2 ARTERIAL (07/08/2017 4:04 AM EST) Analysis Performed At Patho logist Time Signature pH Art 7.30 (L) 7.35 - [facility] 7.45 [facility] LABORATORY pCO2 Art 41 35 - 45 [facility] LABORATORY pO2 Art 83 (L) 85 - 104 [facility] LABORATORY HCO3 Art 19.6 (L) 20.0 - [facility] 26.0 [facility] mmol/[facility] LABORATORY BE Art -6.8 (L) -3.0 - 3.0 [facility] mmol/L [facility] LABORATORY Hgb Blood Gas 12.2 (L) 13.7 - [facility] 16.5 gm/dL [facility] O2HB Art 93.5 (L) 94.0 - [facility] 97.0 % [facility] LABORATORY COHB Art 0.4 % [facility] LABORATORY Comment: Nonsmokers: 0.5-1.5% COHB Smokers: Variable, but usually less than 10% Toxic: 20-30% COHB Lethal: Greater than 60% COHB METHB Art 0.8 <=1.5 % [facility] LABORATORY Na Whole Blood [...] WB 4.4 (Critical) 0.5 - 2.2 mmol/L [facility] LABORATORY Comment: Noted by technician helper instrument. FIO2 Art 40 % [facility] LABORATORY PF Ratio Art 208 [facility] LABORATORY Specimen Anatomical Collection Method Collection Time Receive d Time (Source) Location / / Volume Laterality Blood specimen 07/08/2017 4:04 AM 017 4:04 (specimen) EST AM EST Daphne Shahid MD CHEMISTRY ORDERABLES Performing Organization Address City/State/[place] [address] Scan, Peripheral Blood (07/08/2017 [...] Webber MD HEMATOLOGY ORDERABLES Performing Organization Address City/[facility] - [place] [address] (ABNORMAL) Differential, Automated (07/08/2017 4:00 AM EST) Patholo gist Method Time Signature Neutrophils % 85.4 % [facility] LABORATORY Neutr Abs (ANC) 16.07 (H) 1.70 - [facility] 6.10 [facility] x10(3)/[facility] L LABORATORY Lymphocytes % 3.5 % [facility] LABORATORY Lymphocytes Abs 0.6 (L) 0.9 - 3.2 [facility] x10(3)/[facility] LABORATORY Monocytes % 10.4 % [facility] LABORATORY Monocyte Abs 2.0 (H) 0.3 - 0.9 [facility] x10(3)/[facility] LABORATORY Eosinophils % 0.0 % [facility] LABORATORY Eosinophils Abs 0.0 0.0 - 0.4 [facility] x10(3)/[facility] LABORATORY Basophils % 0.1 % [facility] LABORATORY Basophils Abs 0.0 0.0 - 0.1 [facility] x10(3)/[facility] LABORATORY Immature Gran % 0.60 % [place] Gran Abs 0.12 (H) 0.00 - 0.04 x10(3)/[facility] LABORATORY Specimen Anatomical Collection Method Collection Time Receive d Time (Source) Location / / Volume Laterality Blood specimen 07/08/2017 4:00 AM 017 4:09 (specimen) EST AM EST Resulting Agency Comment Spec In Lab Yuan Webber MD HEMATOLOGY ORDERABLES Performing Organization Address City/State/[place] [address] (ABNORMAL) Hemogram (07/08/2017 4:00 AM EST) Analysis Performed At Patho logist Time Signature WBC 18.8 (H) 4.0 - 9.5 [facility] x10(3)/[facility] LABORATORY RBC 4.00 (L) 4.58 - [facility] 5.54 [facility] x10(6)/[facility] LABORATORY Hemoglobin 11.9 (L) 13.7 - [facility] 16.5 gm/dL [facility] LABORATORY Hematocrit 35.9 (L) 40.5 - [facility] DAVIS 48.5 % [facility] LABORATORY MCV 89.8 82.9 - [facility] SU 93.1 [facility] LABORATORY MCH 29.8 27.5 - [place] OLIVASCK 32.1 pg [facility] LABORATORY MCHC 33.1 32.0 - [place] ZHAOSU 35.7 gm/dL [facility] LABORATORY Platelets 232 145 - 357 [facility] x10(3)/[facility] LABORATORY RDWSD 47.6 (H) 36.0 - [place] ZHAOSU 45.0 [facility] LABORATORY RDWCV 14.5 (H) 11.4 - [facility] 13.8 % [facility] LABORATORY MPV 9.5 7.6 - 12.9 [facility] LABORATORY nRBC % Auto 0.0 % [facility] LABORATORY nRBC Abs Auto 0.000 0.000 - [facility] 0.000 [facility] x10(3)/[facility] LABORATORY Specimen Anatomical Collection Method Collection Time Receive d Time (Source) Location / / Volume Laterality Blood specimen 07/08/2017 4:00 AM 017 4:09 (specimen) EST AM EST Resulting Agency Comment Spec In Lab Yuan Webber MD HEMATOLOGY ORDERABLES Performing Organization Address City/State/[place] [address] (ABNORMAL) Electrolytes panel (07/08/2017 4:00 AM EST) P athologist Signature Sodium 139 135 - 145 [facility] mmol/L [facility] LABORATORY Potassium 4.7 3.5 - 5.0 [facility] mmol/L [facility] LABORATORY Comment: result rechecked-JLK Please note: ??Patients [...] - 15 mmol/L [facility] LABORATORY Specimen Anatomical Collection Method Collection Time Receive d Time (Source) Location / / Volume Laterality Blood specimen 07/08/2017 4:00 AM 017 4:10 (specimen) EST AM EST Resulting Agency Comment Spec In Lab Yuan Webber MD CHEMISTRY ORDERABLES Performing Organization Address City/State/[place] [address] (ABNORMAL) Cardiac Enzymes (LEB/CGP) (07/08/2017 4:00 AM EST) P athologist Signature Troponin-T 1.88 (H) 0.00 - [facility] 0.00 ng/mL [facility] LABORATORY Comment: The 99th percentile for Troponin T is le ss than 0.01 ng/mL, any detectable cTnT concentration using this assay should be considered elevated. According to the third universal definit ion of myocardial infarction the following criteria with a clinical prese ntation consistent with acute myocardial ischemia meets the diagnosis for a myocardial infarction ([place]). Detection of a rise and/or fall of [...] additional sample may be indicated. Reference: Third Leland Definition of Myocardial Infarction. Journal of the [place] [employer] 2012;60:1581-98 CK, Total 413 (H) 0 - 200 unit/L [facility] LABORATORY Comment: result rechecked-JLK Specimen Anatomical Collection Method Collection Time Receive d Time (Source) Location / / Volume Laterality Blood specimen 07/08/2017 4:00 AM 017 4:09 (specimen) EST AM EST Resulting Agency Comment Spec In Lab Yuan Webber MD CHEMISTRY ORDERABLES Performing Organization Address City/[facility] [place]/ZIP Code Phon e Number [address] (ABNORMAL) Glucose, fasting (07/08/2017 4:00 AM EST) P athologist Signature Glucose 287 (H) 65 - 99 [facility] Fasting mg/dL [facility] LABORATORY Comment: ?Fasting* Glucose Interpretive C riteria [...] of Diabetes Mellitus, Position Statement from the [place] [employer]. ??Diabete s Care, Volume 33, Supplement 1, Jul 2009 Specimen Anatomical Collection Method Collection Time Receive d Time (Source) Location / / Volume Laterality Blood specimen 07/08/2017 4:00 AM 017 4:09 (specimen) EST AM EST Resulting Agency Comment Spec In Lab Yuan Webber MD CHEMISTRY ORDERABLES Performing Organization Address City/[facility] [place] [address] (ABNORMAL) Creatinine (07/08/2017 4:00 AM EST) Analysis Performed At Patho logist Time Signature Creatinine 1.55 (H) 0.80 - [facility] ZHAOSU 1.50 mg/dL [facility] LABORATORY Estimated GFR 44 (L) >=60 [facility] LABORATORY Comment: The reported eGFR should be multiplied b y 1.2 for patients. The MDRD is not an appropriate measure o f renal function for patients with body mass extremes or in patients with acute kidney failure. [email or web address] Specimen Anatomical Collection Method Collection Time Receive d Time (Source) Location / / Volume Laterality Blood specimen 07/08/2017 4:00 AM 017 4:09 (specimen) EST AM EST Resulting Agency Comment Spec In Lab Yuan Webber MD CHEMISTRY ORDERABLES Performing Organization Address City/[facility] [place] [address] BUN (07/08/2017 4:00 AM EST) athologist Signature BUN 16 10 - 20 [facility] SU mg/dL [facility] LABORATORY Specimen Anatomical Collection Method Collection Time Receive d Time (Source) Location / / Volume Laterality Blood specimen 07/08/2017 4:00 AM 017 4:09 (specimen) EST AM EST Resulting Agency Comment Spec In Lab Yuan Webber MD CHEMISTRY ORDERABLES Performing Organization Address City/[facility] [place] [address] (ABNORMAL) POCT Glucose (07/08/2017 3:00 AM EST) athologist Signature POC Glucose 273 (H) 65 - 199 [facility]dL [facility] LABORATORY Comment: Supplemental ranges: <140 mg/dL before meals <180 mg/dL all other times of the day Specimen Anatomical Collection Method Collection Time Receive d Time (Source) Location / / Volume Laterality Blood specimen 07/08/2017 3:00 AM 017 3:00 (specimen) EST AM EST Daphne Shahid MD POINT OF CARE TEST ORDERABLE S Performing Organization Address City/[facility] [place] [address] (ABNORMAL) POCT Glucose (07/08/2017 1:57 AM EST) athologist Signature POC Glucose 288 (H) 65 - 199 [facility] SU mg/dL [facility] LABORATORY Comment: Supplemental ranges: <140 mg/dL before meals <180 mg/dL all other times of the day Specimen Anatomical Collection Method Collection Time Receive d Time (Source) Location / / Volume Laterality Blood specimen 07/08/2017 1:57 AM 017 1:57 (specimen) EST AM EST Daphne Shahid MD POINT OF CARE TEST ORDERABLE S Performing Organization Address City/State/[place] [address] (ABNORMAL) POCT Glucose (07/08/2017 1:01 AM EST) P athologist Signature POC Glucose 315 (H) 65 - 199 [facility] mg/dL [facility] LABORATORY Comment: Supplemental ranges: <140 mg/dL before meals <180 mg/dL all other times of the day Specimen Anatomical Collection Method Collection Time Receive d Time (Source) Location / / Volume Laterality Blood specimen 07/08/2017 1:01 AM 017 1:01 (specimen) EST AM EST Daphne Shahid MD POINT OF CARE TEST ORDERABLE S Performing Organization Address City/[facility] [place] [address] (ABNORMAL) BLOOD GAS 2 ARTERIAL (07/08/2017 12:09 AM EST) P athologist Signature pH Art 7.26 7.35 - [facility] (Critical) 7.45 [facility] LABORATORY Comment: Noted by technician helper instrument. pCO2 Art 41 35 - 45 mmHg [...] MEDICAL CENTER LABORATORY COHB Art 0.2 % [facility] LABORATORY Comment: Nonsmokers: 0.5-1.5% COHB Smokers: Variable, but usually less than 10% Toxic: 20-30% COHB Lethal: Greater than 60% COHB METHB Art 0.6 <=1.5 % [facility] LABORATORY Na Whole Blood [...] WB 7.6 (Critical) 0.5 - 2.2 mmol/L [facility] LABORATORY Comment: Noted by technician helper instrument. FIO2 Art 40 % [facility] LABORATORY PF Ratio Art 240 [facility] LABORATORY Specimen Anatomical Collection Method Collection Time Receive d Time (Source) Location / / Volume Laterality Blood specimen Arterial Draw / 07/08/2017 12:09 2016 5:31 (specimen) Unknown AM EST AM EST Resulting Agency Comment Spec In Lab Samy Maldonado MD CHEMISTRY ORDERABLES Performing Organization Address City/State/[place] [address] (ABNORMAL) POCT Glucose (07/07/2017 10:56 PM EST) P athologist Signature POC Glucose 292 (H) 65 - 199 [facility] mg/dL [facility] LABORATORY Comment: Supplemental ranges: <140 mg/dL before meals <180 mg/dL all other times of the day Specimen Anatomical Collection Method Collection Time Receive d Time (Source) Location / / Volume Laterality Blood specimen 07/07/2017 10:56 7 (specimen) PM EST 10:56 PM EST Daphne Shahid MD POINT OF CARE TEST ORDERABLE S Performing Organization Address City/State/[place] [address] (ABNORMAL) BLOOD GAS 2 ARTERIAL (07/07/2017 10:04 PM EST) P athologist Signature pH Art 7.22 7.35 - [facility] (Critical) 7.45 [facility] LABORATORY Comment: Noted by technician helper instrument. pCO2 Art 42 35 - 45 mmHg [...] MEDICAL CENTER LABORATORY COHB Art 0.7 % [facility] LABORATORY Comment: Nonsmokers: 0.5-1.5% COHB Smokers: Variable, but usually less than 10% Toxic: 20-30% COHB Lethal: Greater than 60% COHB METHB Art 0.7 <=1.5 % [facility] LABORATORY Na Whole Blood [...] WB 8.2 (Critical) 0.5 - 2.2 mmol/L [facility] LABORATORY Comment: Noted by technician helper instrument. FIO2 Art 40 % [facility] LABORATORY PF Ratio Art 235 [facility] LABORATORY Specimen Anatomical Collection Method Collection Time Receive d Time (Source) Location / / Volume Laterality Blood specimen 07/07/2017 10:04 7 (specimen) PM EST 10:04 PM EST Daphne Shahid MD CHEMISTRY ORDERABLES Performing Organization Address City/[facility] [place]/ZIP Code Phon e Number [address] (ABNORMAL) Hemoglobin (07/07/2017 10:00 PM EST) P athologist Signature Hemoglobin 12.8 (L) 13.7 - [facility] 16.5 gm/dL [facility] LABORATORY Specimen Anatomical Collection Method Collection Time Receive d Time (Source) Location / / Volume Laterality Blood specimen 07/07/2017 10:00 7 (specimen) PM EST 10:13 PM EST Resulting Agency Comment Spec In Lab Yuan Webber MD HEMATOLOGY ORDERABLES Performing Organization Address City/[facility] [place] [address] (ABNORMAL) Potassium (07/07/2017 10:00 PM EST) P athologist Signature Potassium 3.4 (L) 3.5 - 5.0 [facility] mmol/L [facility] LABORATORY Comment: Please note: ??Patients with WBC [...] Organization Address City/State/[place] [address] (ABNORMAL) POCT Glucose (07/07/2017 8:49 PM EST) P athologist Signature POC Glucose 241 (H) 65 - 199 [facility] mg/dL [facility] LABORATORY Comment: Supplemental ranges: <140 mg/dL before meals <180 mg/dL all other times of the day Specimen Anatomical Collection Method Collection Time Receive d Time (Source) Location / / Volume Laterality Blood specimen 07/07/2017 8:49 PM 017 8:49 (specimen) EST PM EST Daphne Shahid MD POINT OF CARE TEST ORDERABLE S Performing Organization Address City/[facility] [place] [address] Prepare Albumin 5% in [...] BROWN BLOOD BANK ORDERABLES Performing Organization Address City/[facility] [place] [address] EKG 12 Lead (07/07/2017 7:17 PM EST) Component Value Ref Range Test Analysis Performed Pathologis t Method Time At Signature Ventricular rate 75 BPM MUSE SYSTEM Atrial Rate 75 BPM MUSE SYSTEM P-R Interval 168 ms MUSE SYSTEM QRS Duration 104 ms MUSE SYSTEM Q-T Interval 462 ms MUSE SYSTEM QTC Calculated 515 ms MUSE SYSTEM (Bezet) Calculated P [place] 52 degrees MUSE SYSTEM Calculated R [place] -40 degrees MUSE SYSTEM Calculated T [place] 39 degrees MUSE SYSTEM INTERPRETATION Normal sinus [...] athologist Signature pH Art 7.21 7.35 - [facility] (Critical) 7.45 [facility] LABORATORY Comment: Noted by technician helper instrument. pCO2 Art 50 (H) 35 - 45 [...] MEDICAL CENTER LABORATORY COHB Art 0.5 % [facility] LABORATORY Comment: Nonsmokers: 0.5-1.5% COHB Smokers: Variable, but usually less than 10% Toxic: 20-30% COHB Lethal: Greater than 60% COHB METHB Art 0.7 <=1.5 % [facility] LABORATORY Na Whole Blood 140 135 - 145 mmol/L [facility] LABORATORY K Whole Blood 3.0 (Critical) 3.5 - 5.0 mmol/L [facility] LABORATORY Comment: Noted by technician helper instrument. Please note: Patients with WBC >100,000 may [...] WB 4.9 (Critical) 0.5 - 2.2 mmol/L [facility] LABORATORY Comment: Noted by technician helper instrument. FIO2 Art 100 % [facility] LABORATORY PF Ratio Art 238 [facility] LABORATORY Specimen Anatomical Collection Method Collection Time Receive d Time (Source) Location / / Volume Laterality Blood specimen 07/07/2017 6:57 PM 017 6:57 (specimen) EST PM EST Daphne Shahid MD CHEMISTRY ORDERABLES Performing Organization Address City/State/Z[place] [address] (ABNORMAL) BLOOD GAS 2 ARTERIAL (07/07/2017 5:31 PM EST) athologist Signature pH Art 7.29 7.35 - [facility] (Critical) 7.45 [facility] LABORATORY Comment: Noted by technician helper instrument. pCO2 Art 48 (H) 35 - 45 [...] MEDICAL CENTER LABORATORY COHB Art 0.3 % [facility] LABORATORY Comment: Nonsmokers: 0.5-1.5% COHB Smokers: Variable, but usually less than 10% Toxic: 20-30% COHB Lethal: Greater than 60% COHB METHB Art 0.3 <=1.5 % [facility] LABORATORY Na Whole Blood [...] Shahid MD CHEMISTRY ORDERABLES Performing Organization Address City/[facility] [place]/ZIP Code Phon e Number [address] Fibrinogen (07/07/2017 5:30 PM EST) P athologist Signature Fibrinogen 224 180 - 510 [facility] mg/dL [facility] LABORATORY Comment: Called by: JEET, Read back [...] Perez MD HEMATOLOGY ORDERABLES Performing Organization Address City/[facility] [place]/[facility] Phon e Number [address] APTT (07/07/2017 5:30 PM EST) P athologist Signature PTT 30 25 - 35 sec [facility] LABORATORY Comment: The recommended therapeutic range for fu ll dose, unfractionated heparin at [facility] is 80 ? 114 [...] Perez MD HEMATOLOGY ORDERABLES Performing Organization Address City/[facility] [place] [address] (ABNORMAL) Prothrombin Time (07/07/2017 5:30 PM EST) P athologist Signature PT 19.0 (H) 11.8 - 14.0 [facility] LABORATORY INR 1.6 (H) 0.9 [...] Perez MD HEMATOLOGY ORDERABLES Performing Organization Address City/[facility] [place]/Z[place] [address] (ABNORMAL) Hemogram (07/07/2017 5:30 PM EST) P athologist Signature WBC 19.6 (H) 4.0 - 9.5 [facility] x10(3)/[facility] LABORATORY RBC 3.08 (L) 4.58 - [facility] 5.54 [facility] x10(6)/[facility] LABORATORY Hemoglobin 9.2 (L) 13.7 - [facility] 16.5 gm/dL [facility] LABORATORY Hematocrit 28.0 (L) 40.5 - [facility] 48.5 % [facility] LABORATORY Comment: This result has been called to MONICA MORAN by DONALD GROSSMAN on 07 07 2017 at 1759, and has been read back. MCV 90.9 82.9 - 93.1 [facility] LABORATORY MCH 29.9 27.5 - 32.1 pg [facility] LABORATORY MCHC 32.9 32.0 - 35.7 gm/dL [facility] LABORATORY Platelets 155 145 - 357 x10(3)/[facility] LABORATORY RDWSD 46.5 (H) 36.0 - 45.0 [facility] LABORATORY RDWCV 14.1 (H) 11.4 - 13.8 % [facility] LABORATORY MPV 9.5 7.6 - 12.9 [facility] LABORATORY nRBC % Auto 0.0 % [facility] LABORATORY nRBC Abs Auto 0.000 0.000 - 0.000 x10(3)/[facility] LABORATORY Specimen Anatomical Collection Method Collection Time Receive d Time (Source) Location / / Volume Laterality Blood specimen 07/07/2017 5:30 PM 017 5:34 (specimen) EST PM EST Resulting Agency Comment Spec In Lab Yifan Perez MD HEMATOLOGY ORDERABLES Performing Organization Address City/State/Z[place] [address] Prepare Platelets, Apheresis (07/07/2017 5:00 PM EST) P athologist Signature Dispensed? Yes [facility] LABORATORY Specimen Anatomical Collection Method Collection Time Receive d Time (Source) Location / / Volume Laterality Blood specimen 07/07/2017 5:00 PM 017 4:58 (specimen) EST PM EST Daphne Shahid MD BLOOD BANK ORDERABLES Performing Organization Address City/State/Z[place] [address] Platelet count (07/07/2017 4:55 PM EST) athologist Signature Platelets 177 145 - 357 [facility] x10(3)/[facility] LABORATORY Plat Immature 1.5 0.0 - 7.4 [facility] DAVIS % % [facility] LABORATORY Comment: Limitation of the Immature Platelet Frac tion (IPF)-May be less reliable when the platelet count is less than 51h337/u L due to statistical imprecision. The IPF [...] in a decreased state of production. References: [employer] The Clinical Value of the Immature Platelet Fraction (IPF) in Cell Recovery Document Number 10-1143 12/2010 [employer] The Role of the Imm ature [...] Organization Address City/State/[place] [address] [facility] [address] (ABNORMAL) Hemoglobin and Hematocrit, blood (07/07/2017 4:55 PM EST) athologist Signature Hemoglobin 9.1 (L) 13.7 - 16.5 [facility] gm/dL [facility] LABORATORY Comment: This result has been called [...] Organization Address City/State/Z[place] [address] (ABNORMAL) BLOOD GAS 2 ARTERIAL (07/07/2017 4:38 PM EST) Analysis Performed At Patho logist Time Signature pH Art 7.37 7.35 - [facility] 7.45 [facility] LABORATORY pCO2 Art 44 35 - 45 [facility] mmHg [facility] LABORATORY pO2 Art 322 (H) 85 - 104 [facility] LABORATORY HCO3 Art 24.9 20.0 - [facility] 26.0 [facility] mmol/L [facility] LABORATORY BE Art -0.4 -3.0 - 3.0 [facility] mmol/L [facility] LABORATORY Hgb Blood Gas 10.1 (L) 13.7 - [facility] 16.5 gm/dL [facility] O2HB Art 98.7 (H) 94.0 - [facility] 97.0 % [facility] LABORATORY COHB Art 0.1 % [facility] LABORATORY Comment: Nonsmokers: 0.5-1.5% COHB Smokers: Variable, but usually less than 10% Toxic: 20-30% COHB Lethal: Greater than 60% COHB METHB Art 0.3 <=1.5 % [facility] LABORATORY Na Whole Blood [...] [facility] LABORATORY Comment: Noted by technician helper instrument. Note: ??Total bilirubin higher than 20 m [...] Organization Address City/State/Z[place] [address] (ABNORMAL) BLOOD GAS 2 VENOUS (07/07/2017 4:06 PM EST) Analysis Performed At Patho logist Time Signature pH Cody 7.31 (L) 7.32 - [facility] 7.42 [facility] LABORATORY pCO2 Cody 47 41 - 51 [facility] LABORATORY pO2 Cody 53 (H) 25 - 40 [facility] LABORATORY HCO3 Cody 22.7 mmol/L [facility] LABORATORY BE Cody -3.7 mmol/L [facility] LABORATORY Hgb Blood Gas 10.2 (L) 13.7 - [facility] 16.5 gm/dL [facility] LABORATORY O2HB Cody 81.0 % [facility] LABORATORY COHB Cody 1.0 % [facility] LABORATORY Comment: Nonsmokers: 0.5-1.5% COHB Smokers: Variable, but usually less than 10% Toxic: 20-30% COHB Lethal: Greater than 60% COHB METHB Cody 0.3 <=1.5 % [facility] LABORATORY Na Whole Blood [...] [facility] LABORATORY Comment: Noted by technician helper instrument. Note: ??Total bilirubin higher than 20 m g/dL may lead to falsely low ionized calcium. CL Whole Blood 100 98 - 107 mmol/L [facility] LABORATORY Gluc Whole Bld 231 (H) 65 - 199 mg/dL [facility] LABORATORY Comment: Diabetes: >=200 mg/dL plus symp toms Lactate WB 1.1 0.5 - 2.2 mmol/L [facility] LABORATORY BGas Source Venous [facility] LABORATORY Specimen Anatomical Collection Method Collection Time Receive d Time (Source) Location / / Volume Laterality Blood specimen 07/07/2017 4:06 PM 017 4:06 (specimen) EST PM EST Daphne Shahid MD CHEMISTRY ORDERABLES Performing Organization Address City/State/[place] [address] (ABNORMAL) BLOOD GAS 2 ARTERIAL (07/07/2017 4:05 PM EST) Analysis Performed At Patho logist Time Signature pH Art 7.36 7.35 - [facility] 7.45 [facility] LABORATORY pCO2 Art 40 35 - 45 [facility] mmHg [facility] LAB[facility]ORY pO2 Art 282 (H) 85 - 104 [facility] mmHg [facility]ORY HCO3 Art 22.1 20.0 - [facility] 26.0 [facility] mmol/L [facility] LABOR[facility] BE Art -3.4 (L) -3.0 - 3.0 [facility] mmol/L [facility] Hgb Blood Gas 10.2 (L) 13.7 - [facility] 16.5 gm/dL [facility] LABOR[facility]ORY O2HB Art 98.4 (H) 94.0 - [facility] 97.0 % [facility] LAB[facility]ORY COHB Art 0.3 % [facility] Comment: Nonsmokers: 0.5-1.5% COHB Smokers: Variable, but usually less than 10% Toxic: 20-30% COHB Lethal: Greater than 60% COHB METHB Art 0.3 <=1.5 % [facility] LABOR[facility]ORY Na Whole Blood [...] [facility] Comment: Noted by technician helper instrument. Note: ??Total bilirubin higher than 20 m [...] Organization Address City/State/ZIP [place] [address] (ABNORMAL) BLOOD GAS 2 ARTERIAL (07/07/2017 2:29 PM EST) Analysis Performed At Patho logist Time Signature pH Art 7.43 7.35 - [facility] 7.45 [facility] LABOR[facility]ORY pCO2 Art 36 35 - 45 [facility] LABORATORY pO2 Art 221 (H) 85 - 104 [facility] LABORATORY HCO3 Art 23.2 20.0 - [facility] 26.0 [facility] mmol/L HOSPITAL LABORATORY BE Art -1.2 -3.0 - 3.0 [facility] mmol/L [facility]ORY Hgb Blood Gas 13.9 13.7 - [facility] 16.5 gm/dL [facility] LAB[facility]ORY O2HB Art 97.8 (H) 94.0 - [facility] 97.0 % [facility] LAB[facility]ORY COHB Art 1.1 % [facility] Comment: Nonsmokers: 0.5-1.5% COHB Smokers: Variable, but usually less than 10% Toxic: 20-30% COHB Lethal: Greater than 60% COHB METHB Art 0.3 <=1.5 % [facility] LABORATORY Na Whole Blood [...] Organization Address City/State/Z[place] [address] Prepare Coag Factors (Non-Hemophilia) (07/07/2017 1:25 PM EST) P athologist Signature Dispensed? Yes [facility] LABORATORY Specimen Anatomical Collection Method Collection Time Receive d Time (Source) Location / / Volume Laterality Blood specimen 07/07/2017 1:25 PM 017 1:21 (specimen) EST PM EST Daphne Shahid MD BLOOD BANK ORDERABLES Performing Organization Address City/State/ZIP Code Phon e Number [address] Prepare RBC (07/07/2017 1:10 PM EST) P athologist Signature Dispensed? Yes [facility] LABOR[facility]ORY Specimen Anatomical Collection Method Collection Time Receive d Time (Source) Location / / Volume Laterality Blood specimen 07/07/2017 1:10 PM 017 1:05 (specimen) EST PM EST Daphne Shahid MD BLOOD BANK ORDERABLES Performing Organization Address City/[facility]/ZIP Code Phon e Number [address] POCT Glucose (07/07/2017 11:56 AM EST) P athologist Signature POC Glucose 188 65 - 199 [facility]ORY Comment: Supplemental ranges: <140 mg/dL before meals <180 mg/dL all other times of the day Specimen Anatomical Collection Method Collection Time Receive d Time (Source) Location / / Volume Laterality Blood specimen 07/07/2017 11:56 7 (specimen) AM EST 11:56 AM EST Daphne Shahid MD POINT OF CARE TEST ORDERABLE S Performing Organization Address City/[facility]/[place] [address] POCT Glucose (07/07/2017 11:05 AM EST) P athologist Signature POC Glucose 168 65 - 199 [facility] mg/dL [facility]ORY Comment: Supplemental ranges: <140 mg/dL before meals <180 mg/dL all other times of the day Specimen Anatomical Collection Method Collection Time Receive d Time (Source) Location / / Volume Laterality Blood specimen 07/07/2017 11:05 7 (specimen) AM EST 11:05 AM EST Daphne Shahid MD POINT OF CARE TEST ORDERABLE S Performing Organization Address City/State/ZIP [place] [address] POCT Glucose (07/07/2017 10:02 AM EST) athologist Signature POC Glucose 191 65 - 199 [place] [facility] mg/dL [facility]ORY Comment: Supplemental ranges: <140 mg/dL before meals <180 mg/dL all other times of the day Specimen Anatomical Collection Method Collection Time Receive d Time (Source) Location / / Volume Laterality Blood specimen 07/07/2017 10:02 7 (specimen) AM EST 10:02 AM EST Daphne Shahid MD POINT OF CARE TEST ORDERABLE S Performing Organization Address City/State/[place] [address] POCT Glucose (07/07/2017 7:53 AM EST) athologist Signature POC Glucose 178 65 - 199 [facility] mg/dL [facility] Comment: Supplemental ranges: <140 mg/dL before meals <180 mg/dL all other times of the day Specimen Anatomical Collection Method Collection Time Receive d Time (Source) Location / / Volume Laterality Blood specimen 07/07/2017 7:53 AM 017 7:53 (specimen) EST AM EST Daphne Shahid MD POINT OF CARE TEST ORDERABLE S Performing Organization Address City/State/[place] [address] POCT Glucose (07/07/2017 7:03 AM EST) athologist Signature POC Glucose 188 65 - 199 [place] [facility] mg/dL [facility]ORY Comment: Supplemental ranges: <140 mg/dL before meals <180 mg/dL all other times of the day Specimen Anatomical Collection Method Collection Time Receive d Time (Source) Location / / Volume Laterality Blood specimen 07/07/2017 7:03 AM 017 7:03 (specimen) EST AM EST Daphne Shahid MD POINT OF CARE TEST ORDERABLE S Performing Organization Address City/State/[place] [address] (ABNORMAL) POCT Glucose (07/07/2017 6:17 AM EST) athologist Signature POC Glucose 207 (H) 65 - 199 [facility] mg/dL [facility]ORY Comment: Supplemental ranges: <140 mg/dL before meals <180 mg/dL all other times of the day Specimen Anatomical Collection Method Collection Time Receive d Time (Source) Location / / Volume Laterality Blood specimen 07/07/2017 6:17 AM 017 6:17 (specimen) EST AM EST Daphne Shahid MD POINT OF CARE TEST ORDERABLE S Performing Organization Address City/State/ZIP [place] [address] [facility] [address] Differential, Automated (07/07/2017 5:15 AM EST) athologist Signature Neutrophils % 69.7 % [facility] LABORATORY Neutr Abs (ANC) 5.32 1.70 - [facility] 6.10 [facility] x10(3)/[facility] LABORATORY Lymphocytes % 16.3 % [facility] LABORATORY Lymphocytes Abs 1.2 0.9 - 3.2 [facility] x10(3)/[facility] LABORATORY Monocytes % 10.5 % [facility] LABORATORY Monocyte Abs 0.8 0.3 - 0.9 [facility] x10(3)/[facility] LABORATORY Eosinophils % 2.5 % [facility] LABORATORY Eosinophils Abs 0.2 0.0 - 0.4 [facility] x10(3)/[facility] LABORATORY Basophils % 0.7 % [facility] LABORATORY Basophils Abs 0.0 0.0 - 0.1 [facility] x10(3)/[facility] LABORATORY Immature Gran % 0.30 % [...] Melisa Gran Abs 0.02 0.00 - 0.04 x10(3)/[facility] Y [facility] LABORATORY Specimen Anatomical Collection Method Collection Time Receive d Time (Source) Location / / Volume Laterality Blood specimen 07/07/2017 5:15 AM 017 5:34 (specimen) EST AM EST Resulting Agency Comment Spec In Lab Daphne Shahid MD HEMATOLOGY ORDERABLES Performing Organization Address City/State/[place] [address] (ABNORMAL) Hemogram (07/07/2017 5:15 AM EST) Analysis Performed At Patho logist Time Signature WBC 7.6 4.0 - 9.5 [facility] x10(3)/[facility] LABORATORY RBC 4.82 4.58 - [facility] 5.54 [facility] x10(6)/[facility] LABORATORY Hemoglobin 14.4 13.7 - [facility] 16.[facility] gm/dL [facility]ORY Hematocrit 42.1 40.5 - [facility] 48.5 % [facility]ORY MCV 87.3 82.9 - [facility] 93.1 [facility] LABORATORY MCH 29.9 27.5 - [facility] 32.1 pg [facility] LAB[facility]ATORY MCHC 34.2 32.0 - [facility] 35.7 gm/dL [facility] LAB[facility]ATORY Platelets 188 145 - 357 [facility] x10(3)/[facility] RDWSD 45.1 (H) 36.0 - [facility] 45.0 [facility] LABORATORY RDWCV 14.3 (H) 11.4 - [facility] 13.8 % [facility] LABORATORY MPV 9.4 7.6 - 12.9 [facility] LABORATORY nRBC % Auto 0.0 % [facility] LABORATORY nRBC Abs Auto 0.000 0.000 - [facility] 0.000 [facility] x10(3)/[facility] LABORATORY Specimen Anatomical Collection Method Collection Time Receive d Time (Source) Location / / Volume Laterality Blood specimen 07/07/2017 5:15 AM 017 5:34 (specimen) EST AM EST Resulting Agency Comment Spec In Lab Daphne Shahid MD HEMATOLOGY ORDERABLES Performing Organization Address City/[facility]/[place] [address] (ABNORMAL) APTT (07/07/2017 5:15 AM EST) athologist Signature PTT 69 (H) 25 - 35 sec [facility] LABORATORY Comment: The recommended therapeutic range for fu ll dose, unfractionated heparin at [facility] is 80 ? 114 [...] Shahid MD HEMATOLOGY ORDERABLES Performing Organization Address City/[facility]/[place] [address] Magnesium (07/07/2017 5:15 AM EST) athologist Signature Magnesium 0.94 0.69 - 1.07 [facility] mmol/L [facility] LABORATORY Specimen Anatomical Collection Method Collection Time Receive d Time (Source) Location / / Volume Laterality Blood specimen 07/07/2017 5:15 AM 017 5:34 (specimen) EST AM EST Resulting Agency Comment Spec In Lab Daphne Shahid MD CHEMISTRY ORDERABLES Performing Organization Address City/[facility]/[place] [address] (ABNORMAL) Basic Metabolic Panel (non-fasting) (07/07/2017 5:15 AM EST) P athologist Signature Glucose Lvl 203 (H) 65 - 199 [facility] mg/dL [facility] LABORATORY Comment: Diabetes: >=200 mg/dL plus symp toms BUN 15 10 - 20 mg/dL [facility] LABORATORY Creatinine 1.09 0.80 - 1.50 mg/dL [facility] LABORATORY Sodium 142 135 - 145 mmol/L [facility] LABORATORY Potassium 4.4 3.5 - 5.0 mmol/L [place] [...] or in patients with acute kidney failure. [email or web address] [email or web address] Specimen Anatomical Collection Method Collection Time Receive d Time (Source) Location / / Volume Laterality Blood specimen 07/07/2017 5:15 AM 017 5:34 (specimen) EST AM EST Resulting Agency Comment Spec In Lab Daphne Shahid MD CHEMISTRY ORDERABLES Performing Organization Address City/State/Z[place] [address] (ABNORMAL) Cardiac Enzymes (LEB/CGP) (07/07/2017 5:15 AM EST) P athologist Signature Troponin-T 2.07 (H) 0.00 - [facility] 0.00 ng/mL [facility] LAB[facility]ORY Comment: The 99th percentile for Troponin T is le ss than 0.01 ng/mL, any detectable cTnT concentration using this assay should be considered elevated. According to the third universal definit ion of myocardial infarction the following criteria with a clinical prese ntation consistent with acute myocardial ischemia meets the diagnosis for a myocardial infarction ([place]). Detection of a rise and/or fall of [...] additional sample may be indicated. Reference: Third Leland Definition of Myocardial Infarction. Journal of the [place] [employer] 2012;60:1581-98 CK, Total 88 0 - 200 unit/L [facility] LABORATORY Specimen Anatomical Collection Method Collection Time Receive d Time (Source) Location / / Volume Laterality Blood specimen 07/07/2017 5:15 AM 017 5:34 (specimen) EST AM EST Resulting Agency Comment Spec In Lab Daphne Shahid MD CHEMISTRY ORDERABLES Performing Organization Address City/[facility]/ZIP Code Phon e Number [address] POCT Glucose (07/07/2017 5:01 AM EST) athologist Signature POC Glucose 182 65 - 199 [facility]ORY Comment: Supplemental ranges: <140 mg/dL before meals <180 mg/dL all other times of the day Specimen Anatomical Collection Method Collection Time Receive d Time (Source) Location / / Volume Laterality Blood specimen 07/07/2017 5:01 AM 017 5:01 (specimen) EST AM EST Daphne Shahid MD POINT OF CARE TEST ORDERABLE S Performing Organization Address City/[facility] [place] [address] POCT Glucose (07/07/2017 4:08 AM EST) athologist Signature POC Glucose 199 65 - 199 [facility] mg/dL [facility]ORY Comment: Supplemental ranges: <140 mg/dL before meals <180 mg/dL all other times of the day Specimen Anatomical Collection Method Collection Time Receive d Time (Source) Location / / Volume Laterality Blood specimen 07/07/2017 4:08 AM 017 4:08 (specimen) EST AM EST Daphne Shahid MD POINT OF CARE TEST ORDERABLE S Performing Organization Address City/State/[place] [address] POCT Glucose (07/07/2017 3:03 AM EST) athologist Signature POC Glucose 188 65 - 199 [place] [facility] mg/dL [facility]ORY Comment: Supplemental ranges: <140 mg/dL before meals <180 mg/dL all other times of the day Specimen Anatomical Collection Method Collection Time Receive d Time (Source) Location / / Volume Laterality Blood specimen 07/07/2017 3:03 AM 017 3:03 (specimen) EST AM EST Daphne Shahid MD POINT OF CARE TEST ORDERABLE S Performing Organization Address City/State/[place] [address] (ABNORMAL) POCT Glucose (07/07/2017 2:08 AM EST) athologist Signature POC Glucose 200 (H) 65 - 199 [facility] mg/dL [facility]ORY Comment: Supplemental ranges: <140 mg/dL before meals <180 mg/dL all other times of the day Specimen Anatomical Collection Method Collection Time Receive d Time (Source) Location / / Volume Laterality Blood specimen 07/07/2017 2:08 AM 017 2:08 (specimen) EST AM EST Daphne Shahid MD POINT OF CARE TEST ORDERABLE S Performing Organization Address City/State/ZIP Code Phon e Number [address] (ABNORMAL) POCT Glucose (07/07/2017 1:31 AM EST) athologist Signature POC Glucose 209 (H) 65 - 199 [place] [facility] mg/dL [facility]ORY Comment: Supplemental ranges: <140 mg/dL before meals <180 mg/dL all other times of the day Specimen Anatomical Collection Method Collection Time Receive d Time (Source) Location / / Volume Laterality Blood specimen 07/07/2017 1:31 AM 017 1:31 (specimen) EST AM EST Daphne Shahid MD POINT OF CARE TEST ORDERABLE S Performing Organization Address City/State/[place] [address] XR Chest PA or [...] Signature POC Glucose 161 65 - 199 [facility] mg/dL [facility] LAB[facility]ORY Comment: Supplemental ranges: <140 mg/dL before meals <180 mg/dL all other times of the day Specimen Anatomical Collection Method Collection Time Receive d Time (Source) Location / / Volume Laterality Blood specimen 07/07/2017 12:07 7 (specimen) AM EST 12:07 AM EST Daphne Shahid MD POINT OF CARE TEST ORDERABLE S Performing Organization Address City/State/[place] [address] (ABNORMAL) APTT (07/07/2017 12:00 AM EST) athologist Signature PTT 103 (H) 25 - 35 sec [facility] LABOR[facility]ORY Comment: The recommended therapeutic range for fu ll dose, unfractionated heparin at [facility] is 80 ? 114 [...] Shahid MD HEMATOLOGY ORDERABLES Performing Organization Address City/[facility]/[place] [address] POCT Glucose (07/06/2017 9:55 PM EST) athologist Signature POC Glucose 109 65 - 199 [facility] mg/dL [facility] Comment: Supplemental ranges: <140 mg/dL before meals <180 mg/dL all other times of the day Specimen Anatomical Collection Method Collection Time Receive d Time (Source) Location / / Volume Laterality Blood specimen 07/06/2017 9:55 PM 017 9:55 (specimen) EST PM EST Daphne Shahid MD POINT OF CARE TEST ORDERABLE S Performing Organization Address City/[facility]/[place] [address] POCT Glucose (07/06/2017 9:04 PM EST) athologist Signature POC Glucose 120 65 - 199 [facility] mg/dL [facility] Comment: Supplemental ranges: <140 mg/dL before meals <180 mg/dL all other times of the day Specimen Anatomical Collection Method Collection Time Receive d Time (Source) Location / / Volume Laterality Blood specimen 07/06/2017 9:04 PM 017 9:04 (specimen) EST PM EST Daphne Shahid MD POINT OF CARE TEST ORDERABLE S Performing Organization Address City/[facility]/[place] [address] POCT Glucose (07/06/2017 7:45 PM EST) athologist Signature POC Glucose 158 65 - 199 [facility] mg/dL [facility] Comment: Supplemental ranges: <140 mg/dL before meals <180 mg/dL all other times of the day Specimen Anatomical Collection Method Collection Time Receive d Time (Source) Location / / Volume Laterality Blood specimen 07/06/2017 7:45 PM 017 7:45 (specimen) EST PM EST Daphne Shahid MD POINT OF CARE TEST ORDERABLE S Performing Organization Address City/[facility]/[place] [address] Potassium (07/06/2017 7:40 PM EST) athologist Signature Potassium 3.9 3.5 - 5.0 [facility] mmol/L [facility]ORY Comment: Please note: ??Patients with WBC [...] Shahid MD CHEMISTRY ORDERABLES Performing Organization Address City/[facility]/[place] [address] (ABNORMAL) Cardiac Enzymes (LEB/CGP) (07/06/2017 7:40 PM EST) athologist Signature Troponin-T 2.27 (H) 0.00 - [facility] 0.[facility] ng/mL [facility] Comment: The 99th percentile for Troponin T is le ss than 0.01 ng/mL, any detectable cTnT concentration using this assay should be considered elevated. According to the third universal definit ion of myocardial infarction the following criteria with a clinical prese ntation consistent with acute myocardial ischemia meets the diagnosis for a myocardial infarction ([place]). Detection of a rise and/or fall of [...] additional sample may be indicated. Reference: Third Leland Definition of Myocardial Infarction. Journal of the [place] [employer] 2012;60:1581-98 CK, Total 93 0 - 200 unit/L [facility] LABORATORY Specimen Anatomical Collection Method Collection Time Receive d Time (Source) Location / / Volume Laterality Blood specimen 07/06/2017 7:40 PM 017 7:52 (specimen) EST PM EST Resulting Agency Comment Spec In Lab Daphne Shahid MD CHEMISTRY ORDERABLES Performing Organization Address City/State/ZIP [place] [address] (ABNORMAL) POCT Glucose (07/06/2017 7:13 PM EST) athologist Signature POC Glucose 200 (H) 65 - 199 [facility] mg/dL [facility]ORY Comment: Supplemental ranges: <140 mg/dL before meals <180 mg/dL all other times of the day Specimen Anatomical Collection Method Collection Time Receive d Time (Source) Location / / Volume Laterality Blood specimen 07/06/2017 7:13 PM 017 7:13 (specimen) EST PM EST Daphne Shahid MD POINT OF CARE TEST ORDERABLE S Performing Organization Address City/[facility]/[place] [address] (ABNORMAL) APTT (07/06/2017 6:15 PM EST) athologist Signature PTT 94 (H) 25 - 35 sec [facility] LABORATORY Comment: The recommended therapeutic range for fu ll dose, unfractionated heparin at [facility] is 80 ? 114 [...] Shahid MD HEMATOLOGY ORDERABLES Performing Organization Address City/[facility]/[place] [address] (ABNORMAL) POCT Glucose (07/06/2017 6:03 PM EST) athologist Signature POC Glucose 236 (H) 65 - 199 [facility] mg/dL [facility]ORY Comment: Supplemental ranges: <140 mg/dL before meals <180 mg/dL all other times of the day Specimen Anatomical Collection Method Collection Time Receive d Time (Source) Location / / Volume Laterality Blood specimen 07/06/2017 6:03 PM 017 6:03 (specimen) EST PM EST Daphne Shahid MD POINT OF CARE TEST ORDERABLE S Performing Organization Address City/[facility]/[place] [address] (ABNORMAL) POCT Glucose (07/06/2017 5:01 PM EST) athologist Signature POC Glucose 235 (H) 65 - 199 [place] [facility] mg/dL [facility]ORY Comment: Supplemental ranges: <140 mg/dL before meals <180 mg/dL all other times of the day Specimen Anatomical Collection Method Collection Time Receive d Time (Source) Location / / Volume Laterality Blood specimen 07/06/2017 5:01 PM 017 5:01 (specimen) EST PM EST Daphne Shahid MD POINT OF CARE TEST ORDERABLE S Performing Organization Address City/State/[place] [address] (ABNORMAL) POCT Glucose (07/06/2017 4:06 PM EST) P athologist Signature POC Glucose 202 (H) 65 - 199 [place] [place] mg/dL [facility] Comment: Supplemental ranges: <140 mg/dL before meals <180 mg/dL all other times of the day Specimen Anatomical Collection Method Collection Time Receive d Time (Source) Location / / Volume Laterality Blood specimen 07/06/2017 4:06 PM 017 4:06 (specimen) EST PM EST Daphne Shahid MD POINT OF CARE TEST ORDERABLE S Performing Organization Address City/[facility]/[place] [address] POCT Glucose (07/06/2017 2:59 PM EST) P athologist Signature POC Glucose 178 65 - 199 [place] mg/dL [facility] Comment: Supplemental ranges: <140 mg/dL before meals <180 mg/dL all other times of the day Specimen Anatomical Collection Method Collection Time Receive d Time (Source) Location / / Volume Laterality Blood specimen 07/06/2017 2:59 PM 017 2:59 (specimen) EST PM EST Daphne Shahid MD POINT OF CARE TEST ORDERABLE S Performing Organization Address City/State/[place] [address] (ABNORMAL) Cardiac Enzymes (LEB/CGP) (07/06/2017 2:10 PM EST) P athologist Signature Troponin-T 2.34 (H) 0.00 - [facility] 0.00 ng/mL [facility] Comment: The 99th percentile for Troponin T is le ss than 0.01 ng/mL, any detectable cTnT concentration using this assay should be considered elevated. According to the third universal definit ion of myocardial infarction the following criteria with a clinical prese ntation consistent with acute myocardial ischemia meets the diagnosis for a myocardial infarction ([place]). Detection of a rise and/or fall of [...] additional sample may be indicated. Reference: Third Leland Definition of Myocardial Infarction. Journal of the [place] College [employer]iology 2012;60:1581-98 CK, Total 101 0 - 200 unit/L [facility] Specimen Anatomical Collection Method Collection Time Receive d Time (Source) Location / / Volume Laterality Blood specimen 07/06/2017 2:10 PM 017 2:26 (specimen) EST PM EST Resulting Agency Comment Spec In Lab Daphne Shahid MD CHEMISTRY ORDERABLES Performing Organization Address City/State/ZIP [place] [address] POCT Glucose (07/06/2017 2:08 PM EST) P athologist Signature POC Glucose 192 65 - 199 [facility] mg/dL [facility] Comment: Supplemental ranges: <140 mg/dL before meals <180 mg/dL all other times of the day Specimen Anatomical Collection Method Collection Time Receive d Time (Source) Location / / Volume Laterality Blood specimen 07/06/2017 2:08 PM 017 2:08 (specimen) EST PM EST Daphne Shahid MD POINT OF CARE TEST ORDERABLE S Performing Organization Address City/State/ZIP Code Phon e Number [address] POCT Glucose (07/06/2017 1:04 PM EST) P athologist Signature POC Glucose 162 65 - 199 [facility] Comment: Supplemental ranges: <140 mg/dL before meals <180 mg/dL all other times of the day Specimen Anatomical Collection Method Collection Time Receive d Time (Source) Location / / Volume Laterality Blood specimen 07/06/2017 1:04 PM 017 1:04 (specimen) EST PM EST Daphne Shahid MD POINT OF CARE TEST ORDERABLE S Performing Organization Address City/[facility]/[place] [address] POCT Glucose (07/06/2017 12:05 PM EST) P athologist Signature POC Glucose 196 65 - 199 [facility] Comment: Supplemental ranges: <140 mg/dL before meals <180 mg/dL all other times of the day Specimen Anatomical Collection Method Collection Time Receive d Time (Source) Location / / Volume Laterality Blood specimen 07/06/2017 12:05 7 (specimen) PM EST 12:05 PM EST Daphne Shahid MD POINT OF CARE TEST ORDERABLE S Performing Organization Address City/[facility]/ZIP Code Phon e Number [address] EKG 12 Lead (07/06/2017 12:00 PM EST) Component Value Ref Range Test Analysis Performed Pathologis t Method Time At Signature Ventricular rate 91 BPM MUSE SYSTEM Atrial Rate 91 BPM MUSE SYSTEM P-R Interval 140 ms MUSE SYSTEM QRS Duration 94 ms MUSE SYSTEM Q-T Interval 394 ms MUSE SYSTEM QTC Calculated 484 ms MUSE SYSTEM (Bezet) Calculated P [place] 36 degrees MUSE SYSTEM Calculated R [place] -19 degrees MUSE SYSTEM Calculated T [place] 104 degrees MUSE SYSTEM INTERPRETATION Normal sinus rhythm MUSE SYSTEM 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) ST & T wave abnormality, consider lateral ischemia Abnormal ECG When compared with ECG of 05-JUL-2017 20:39, No significant change was found Confirmed by MD Luci, Taurus Braun ([id number]) on 07/06/2017 5:07:33 PM Specimen Anatomical Collection Method Collection Time Receive d Time (Source) Location / / Volume Laterality 07/06/2017 12:00 07/06/2017 5:07 PM EST PM EST Daphne Shahid MD ECG ORDERABLES Performing Organization Address City/State/ZIP Code Phon e Number MUSE SYSTEM ABORH Recheck Status (07/06/2017 12:00 PM EST) [facility] gist Method Time Signature ABORH Type Completed [facility] LABORATORY Specimen Anatomical Collection Method Collection Time Receive d Time (Source) Location / / Volume Laterality Blood specimen 07/06/2017 12:00 7 (specimen) PM EST 12:24 PM EST Resulting Agency Comment Spec In Lab Daphne Shahid MD BLOOD BANK ORDERABLES Performing Organization Address City/[facility]/[place] [address] Antibody screen (07/06/2017 12:00 PM EST) [facility] Method Time Signature Ab Screen Negative [facility] LABORATORY Expires at 07/09/2017 [facility] 235 on: [facility] Specimen Anatomical Collection Method Collection Time Receive d Time (Source) Location / / Volume Laterality Blood specimen 07/06/2017 12:00 7 (specimen) PM EST 12:24 PM EST Resulting Agency Comment Spec In Lab Daphne Shahid MD BLOOD BANK ORDERABLES Performing Organization Address City/[facility]/[place] [address] ABO/Rh Typing (07/06/2017 12:00 [...] Organization Address City/State/[place] [address] Prothrombin Time (07/06/2017 11:24 AM EST) athologist Signature PT 13.3 11.8 - 14.0 [facility] LABORATORY INR 1.0 0.9 - 1.1 [...] Shahid MD HEMATOLOGY ORDERABLES Performing Organization Address City/[facility]/[place] [address] (ABNORMAL) APTT (07/06/2017 11:24 AM EST) athologist Signature PTT 52 (H) 25 - 35 sec [facility] Comment: The recommended therapeutic range for fu ll dose, unfractionated heparin at [facility] is 80 ? 114 [...] Shahid MD HEMATOLOGY ORDERABLES Performing Organization Address City/[facility]/[place] [address] POCT Glucose (07/06/2017 11:02 AM EST) athologist Signature POC Glucose 187 65 - 199 [place] mg/dL [facility] Comment: Supplemental ranges: <140 mg/dL before meals <180 mg/dL all other times of the day Specimen Anatomical Collection Method Collection Time Receive d Time (Source) Location / / Volume Laterality Blood specimen 07/06/2017 11:02 7 (specimen) AM EST 11:02 AM EST Daphne Shahid MD POINT OF CARE TEST ORDERABLE S Performing Organization Address City/State/[place] [address] POCT Glucose (07/06/2017 10:18 AM EST) athologist Signature POC Glucose 193 65 - 199 [place] mg/dL [facility] Comment: Supplemental ranges: <140 mg/dL before meals <180 mg/dL all other times of the day Specimen Anatomical Collection Method Collection Time Receive d Time (Source) Location / / Volume Laterality Blood specimen 07/06/2017 10:18 7 (specimen) AM EST 10:18 AM EST Daphne Shahid MD POINT OF CARE TEST ORDERABLE S Performing Organization Address City/State/[place] [address] POCT Glucose (07/06/2017 9:25 AM EST) athologist Signature POC Glucose 182 65 - 199 [place] mg/dL [facility] Comment: Supplemental ranges: <140 mg/dL before meals <180 mg/dL all other times of the day Specimen Anatomical Collection Method Collection Time Receive d Time (Source) Location / / Volume Laterality Blood specimen 07/06/2017 9:25 AM 017 9:25 (specimen) EST AM EST Daphne Shahid MD POINT OF CARE TEST ORDERABLE S Performing Organization Address City/State/[place] [address] (ABNORMAL) Cardiac Enzymes (LEB/CGP) (07/06/2017 8:10 AM EST) athologist Signature Troponin-T 2.26 (H) 0.00 [facility] ng/mL [facility] Comment: The 99th percentile for Troponin T is le ss than 0.01 ng/mL, any detectable cTnT concentration using this assay should be considered elevated. According to the third universal definit ion of myocardial infarction the following criteria with a clinical prese ntation consistent with acute myocardial ischemia meets the diagnosis for a myocardial infarction ([place]). Detection of a rise and/or fall of [...] additional sample may be indicated. Reference: Third Leland Definition of Myocardial Infarction. Journal of the [place] College of [employer]iology 2012;60:1581-98 CK, Total 124 0 - 200 unit/L [facility] Specimen Anatomical Collection Method Collection Time Receive d Time (Source) Location / / Volume Laterality Blood specimen 07/06/2017 8:10 AM 017 8:23 (specimen) EST AM EST Resulting Agency Comment Spec In Lab Daphne Shahid MD CHEMISTRY ORDERABLES Performing Organization Address City/State/ZIP [place] [address] Magnesium (07/06/2017 8:10 AM EST) athologist Signature Magnesium 0.84 0.69 - 1.07 [facility] mmol/L [facility] Specimen Anatomical Collection Method Collection Time Receive d Time (Source) Location / / Volume Laterality Blood specimen 07/06/2017 8:10 AM 017 8:21 (specimen) EST AM EST Resulting Agency Comment Spec In Lab Daphne Shahid MD CHEMISTRY ORDERABLES Performing Organization Address City/State/ZIP [place] [address] (ABNORMAL) Basic Metabolic Panel (non-fasting) (07/06/2017 8:10 AM EST) P athologist Signature Glucose Lvl 199 65 - 199 [facility] mg/dL [facility] Comment: Diabetes: >=200 mg/dL plus symp toms BUN 16 10 - 20 mg/dL [facility] Creatinine 1.04 0.80 - 1.50 mg/dL [facility] Sodium 141 135 - 145 mmol/L [place] [...] or in patients with acute kidney failure. [email or web address] Specimen Anatomical Collection Method Collection Time Receive d Time (Source) Location / / Volume Laterality Blood specimen 07/06/2017 8:10 AM 017 8:21 (specimen) EST AM EST Resulting Agency Comment Spec In Lab Daphne Shahid MD CHEMISTRY ORDERABLES Performing Organization Address City/State/[place] [address] POCT Glucose (07/06/2017 7:34 AM EST) P athologist Signature POC Glucose 198 65 - 199 [facility] mg/dL [facility] Comment: Supplemental ranges: <140 mg/dL before meals <180 mg/dL all other times of the day Specimen Anatomical Collection Method Collection Time Receive d Time (Source) Location / / Volume Laterality Blood specimen 07/06/2017 7:34 AM 017 7:34 (specimen) EST AM EST Daphne Shahid MD POINT OF CARE TEST ORDERABLE S Performing Organization Address City/State/ZIP Code Phon e Number [address] POCT Glucose (07/06/2017 7:03 AM EST) athologist Signature POC Glucose 181 65 - 199 [facility]dL [facility] Comment: Supplemental ranges: <140 mg/dL before meals <180 mg/dL all other times of the day Specimen Anatomical Collection Method Collection Time Receive d Time (Source) Location / / Volume Laterality Blood specimen 07/06/2017 7:03 AM 017 7:03 (specimen) EST AM EST Daphne Shahdi MD POINT OF CARE TEST ORDERABLE S Performing Organization Address City/State/[place] [address] XR Chest PA or [...] Signature POC Glucose 172 65 - 199 [facility] mg/dL [facility] Comment: Supplemental ranges: <140 mg/dL before meals <180 mg/dL all other times of the day Specimen Anatomical Collection Method Collection Time Receive d Time (Source) Location / / Volume Laterality Blood specimen 07/06/2017 6:21 AM 017 6:21 (specimen) EST AM EST Daphne Shahid MD POINT OF CARE TEST ORDERABLE S Performing Organization Address City/State/ZIP [place] [address] POCT Glucose (07/06/2017 5:08 AM EST) athologist Signature POC Glucose 154 65 - 199 [facility] mg/dL [facility] Comment: Supplemental ranges: <140 mg/dL before meals <180 mg/dL all other times of the day Specimen Anatomical Collection Method Collection Time Receive d Time (Source) Location / / Volume Laterality Blood specimen 07/06/2017 5:08 AM 017 5:08 (specimen) EST AM EST Daphne Shahid MD POINT OF CARE TEST ORDERABLE S Performing Organization Address City/State/ZIP Code Phon e Number [address] POCT Glucose (07/06/2017 4:05 AM EST) athologist Signature POC Glucose 142 65 - 199 [facility] mg/dL [facility] Comment: Supplemental ranges: <140 mg/dL before meals <180 mg/dL all other times of the day Specimen Anatomical Collection Method Collection Time Receive d Time (Source) Location / / Volume Laterality Blood specimen 07/06/2017 4:05 AM 017 4:05 (specimen) EST AM EST Daphne Shahid MD POINT OF CARE TEST ORDERABLE S Performing Organization Address City/State/ZIP Code Phon e Number [address] POCT Glucose (07/06/2017 3:00 AM EST) athologist Signature POC Glucose 116 65 - 199 [facility] mg/dL [facility] Comment: Supplemental ranges: <140 mg/dL before meals <180 mg/dL all other times of the day Specimen Anatomical Collection Method Collection Time Receive d Time (Source) Location / / Volume Laterality Blood specimen 07/06/2017 3:00 AM 017 3:00 (specimen) EST AM EST Daphne Shahid MD POINT OF CARE TEST ORDERABLE S Performing Organization Address City/State/ZIP Code Phon e Number [address] Potassium (07/06/2017 2:20 AM EST) athologist Signature Potassium 3.9 3.5 - 5.0 [facility] mmol/L [facility] Comment: Please note: ??Patients with WBC [...] Organization Address City/State/ZIP [place] [address] Differential, Automated (07/06/2017 2:20 AM EST) athologist Signature Neutrophils % 72.9 % [facility] Neutr Abs (ANC) 5.53 1.70 - [facility] 6.10 [facility] x10(3)[facility] LABORATORY Lymphocytes % 16.4 % [facility] Lymphocytes Abs 1.2 0.9 - 3.2 [facility] x10(3)/[facility] LABORATORY Monocytes % 9.4 % [facility] Monocyte Abs 0.7 0.3 - 0.9 [facility] x10(3)/[facility] LABORATORY Eosinophils % 0.5 % [facility] Eosinophils Abs 0.0 0.0 - 0.4 [facility] x10(3)/[facility] LABORATORY Basophils % 0.4 % [facility] Basophils Abs 0.0 0.0 - 0.1 [facility] x10(3)/[facility] LABORATORY Immature Gran % 0.40 % [facility] Comment: Immature granulocytes(IG's)percentage an d absolute count will include metamyelocytes, myelocytes, and promyelo cytes. Blood smears from CBCs yielding IG's will be scanned manually for concor dance. If this scan disagrees with the automated IG or if promyelocytes are not ed, a manual differential will be performed. Melisa Gran Abs 0.03 0.00 - 0.04 x10(3)/[facility] MAR Y [facility]OR[facility]ORY Specimen Anatomical Collection Method Collection Time Receive d Time (Source) Location / / Volume Laterality Blood specimen 07/06/2017 2:20 AM 017 2:33 (specimen) EST AM EST Resulting Agency Comment Spec In Lab Daphne Shahid MD HEMATOLOGY ORDERABLES Performing Organization Address City/State/Z[place] [address] (ABNORMAL) Hemogram (07/06/2017 2:20 AM EST) Analysis Performed At Patho logist Time Signature WBC 7.6 4.0 - 9.5 [facility] x[facility](3[facility] LABORATORY RBC 4.52 (L) 4.58 - [place] SU 5.54 [facility] x10(6)/[facility] LABORATORY Hemoglobin 13.4 (L) 13.7 - [facility] 16.5 gm/dL [facility] Hematocrit 39.7 (L) 40.5 - [facility] 48.5 % [facility] MCV 87.8 82.9 - [facility] 93.1 [facility] LABORATORY MCH 29.6 27.5 - [place] 32.1 pg [facility] MCHC 33.8 32.0 - [place] SU 35.7 gm/dL [facility] Platelets 189 145 - 357 [facility] x10(3)/[facility] LABORATORY RDWSD 45.6 (H) 36.0 - [facility] 45.0 [facility] LABORATORY RDWCV 14.3 (H) 11.4 - [facility] 13.8 % [facility] MPV 9.1 7.6 - 12.9 [facility] nRBC % Auto 0.0 % [facility] nRBC Abs Auto 0.000 0.000 - [facility] 0.000 [facility] x10(3)/[facility] LABORATORY Specimen Anatomical Collection Method Collection Time Receive d Time (Source) Location / / Volume Laterality Blood specimen 07/06/2017 2:20 AM 017 2:33 (specimen) EST AM EST Resulting Agency Comment Spec In Lab Daphne Shahid MD HEMATOLOGY ORDERABLES Performing Organization Address City/State/[place] [address] (ABNORMAL) APTT (07/06/2017 2:20 AM EST) athologist Signature PTT 52 (H) 25 - 35 sec [facility] Comment: The recommended therapeutic range for fu ll dose, unfractionated heparin at [facility] is 80 ? 114 [...] Shahid MD HEMATOLOGY ORDERABLES Performing Organization Address City/[facility]/[place] [address] POCT Glucose (07/06/2017 2:20 AM EST) athologist [facility] POC Glucose 115 65 - 199 [facility] mg/dL [facility] Comment: Supplemental ranges: <140 mg/dL before meals <180 mg/dL all other times of the day Specimen Anatomical Collection Method Collection Time Receive d Time (Source) Location / / Volume Laterality Blood specimen 07/06/2017 2:20 AM 017 2:20 (specimen) EST AM EST Daphne Shahid MD POINT OF CARE TEST ORDERABLE S Performing Organization Address City/[facility]/[place] [address] (ABNORMAL) Cardiac Enzymes (LEB/CGP) (07/06/2017 2:20 AM EST) athologist [facility] Troponin-T 2.13 (H) 0.00 - [facility] 0.00 ng/mL [facility] Comment: The 99th percentile for Troponin T is le ss than 0.01 ng/mL, any detectable cTnT concentration using this assay should be considered elevated. According to the third universal definit ion of myocardial infarction the following criteria with a clinical prese ntation consistent with acute myocardial ischemia meets the diagnosis for a myocardial infarction ([place]). Detection of a rise and/or fall of [...] additional sample may be indicated. Reference: Third Leland Definition of Myocardial Infarction. Journal of the [place] College of [employer]iology 2012;60:1581-98 CK, Total 129 0 - 200 unit/L [facility] Specimen Anatomical Collection Method Collection Time Receive d Time (Source) Location / / Volume Laterality Blood specimen 07/06/2017 2:20 AM 017 2:33 (specimen) EST AM EST Resulting Agency Comment Spec In Lab Daphne Shahid MD CHEMISTRY ORDERABLES Performing Organization Address City/State/ZIP Code Phon e Number [place] [id number] (ABNORMAL) Hemoglobin A1c (07/06/2017 2:20 AM EST) Analysis Performed At Patho logist Time Signature Hemoglobin A1C 6.8 (H) 4.3 - 5.6 [facility] [...] Mellitus, Diabetes Care 2013; 36: Suppl. 1, S67-56 Est Avg Gluc See note mg/dL [place] [...] with hemoglobinopathies. Additional resources are available on [facility] ADA website. Macario HAMMOND, Ruthann J, Deysi R, et al. ??Tr anslating the A1C assay into estimated average glucose values. ??Diabetes Care 2008:31(8):7686-1665. Specimen Anatomical Collection Method Collection Time Receive d Time (Source) Location / / Volume Laterality Blood specimen 07/06/2017 2:20 AM 017 2:34 (specimen) EST AM EST Resulting Agency Comment Spec In Lab Daphne Shahid MD CHEMISTRY ORDERABLES Performing Organization Address City/State/ZIP [place] [address] (ABNORMAL) Lipid Panel (07/06/2017 2:20 AM EST) [facility] Method Time Signature Chol, Total 150 <=239 [place] mg/dL [facility] Triglycerides 129 <=199 [place] mg/dL [facility] HDL 32 (L) >=40 [place] mg/dL [facility] LDL Cholesterol 92 <=190 [place] mg/dL [facility] Chol/HDL Ratio 4.7 ratio [facility] Lipid See Note [place] Interpretation [facility] Comment: Lipid management should be guided by a p atient? s ASCVD risk, goals and preferences. ACC/AHA Guidelines recommend high intens ity statin if clinical ASCVD or LDL greater than or equal to 190 mg/dL. [email or web address] Adults aged 40-75 with LDL 70-189 mg/dL should have their 10 year ASCVD risk estimated with the ACC/AHA ASCVD risk es timator http://tools.acc.org/GDMLI-Xovx-Bczmmaso r/ Statin should be discussed if risk [...] Organization Address City/State/[place] [address] POCT Glucose (07/06/2017 1:09 AM EST) P athologist Signature POC Glucose 121 65 - 199 [facility] mg/dL [facility] Comment: Supplemental ranges: <140 mg/dL before meals <180 mg/dL all other times of the day Specimen Anatomical Collection Method Collection Time Receive d Time (Source) Location / / Volume Laterality Blood specimen 07/06/2017 1:09 AM 017 1:09 (specimen) EST AM EST Daphne Shahid MD POINT OF CARE TEST ORDERABLE S Performing Organization Address City/State/[place] [address] POCT Glucose (07/06/2017 12:06 AM EST) P athologist Signature POC Glucose 147 65 - 199 [facility] mg/dL [facility] LABORATORY Comment: Supplemental ranges: <140 mg/dL before meals <180 mg/dL all other times of the day Specimen Anatomical Collection Method Collection Time Receive d Time (Source) Location / / Volume Laterality Blood specimen 07/06/2017 12:06 7 (specimen) AM EST 12:06 AM EST Daphne Shahid MD POINT OF CARE TEST ORDERABLE S Performing Organization Address City/State/[place] [address] (ABNORMAL) POCT Glucose (07/05/2017 10:56 PM EST) P athologist Signature POC Glucose 200 (H) 65 - 199 [facility] LABORATORY Comment: Supplemental ranges: <140 mg/dL before meals <180 mg/dL all other times of the day Specimen Anatomical Collection Method Collection Time Receive d Time (Source) Location / / Volume Laterality Blood specimen 07/05/2017 10:56 7 (specimen) PM EST 10:56 PM EST Daphne Shahid MD POINT OF CARE TEST ORDERABLE S Performing Organization Address City/State/[place] [address] (ABNORMAL) POCT Glucose (07/05/2017 10:05 PM EST) P athologist Signature POC Glucose 225 (H) 65 - 199 [place] [facility] mg/dL [facility] LABORATORY Comment: Supplemental ranges: <140 mg/dL before meals <180 mg/dL all other times of the day Specimen Anatomical Collection Method Collection Time Receive d Time (Source) Location / / Volume Laterality Blood specimen 07/05/2017 10:05 7 (specimen) PM EST 10:05 PM EST Daphne Shahid MD POINT OF CARE TEST ORDERABLE S Performing Organization Address City/State/ZIP [place] [address] (ABNORMAL) POCT Glucose (07/05/2017 9:02 PM EST) P athologist Signature POC Glucose 301 (H) 65 - 199 [facility]dL [facility] LABORATORY Comment: Supplemental ranges: <140 mg/dL before meals <180 mg/dL all other times of the day Specimen Anatomical Collection Method Collection Time Receive d Time (Source) Location / / Volume Laterality Blood specimen 07/05/2017 9:02 PM 017 9:02 (specimen) EST PM EST Daphne Shahid MD POINT OF CARE TEST ORDERABLE S Performing Organization Address City/State/ZIP Code Phon e Number [address] XR Chest PA or [...] 474 ms MUSE SYSTEM (Bezet) Calculated P [place] 50 degrees MUSE SYSTEM Calculated R [place] -28 degrees MUSE SYSTEM Calculated T [place] 90 degrees MUSE SYSTEM INTERPRETATION Sinus tachycardia [...] Neutr Abs (ANC) 9.08 (H) 1.70 - [facility] 6.10 [facility] x10(3)/[facility] L LABORATORY Lymphocytes % 7.0 % [facility] LABORATORY Lymphocytes Abs 0.7 (L) 0.9 - 3.2 [facility] x10(3)/[facility] LABORATORY Monocytes % 3.7 % [facility] LABORATORY Monocyte Abs 0.4 0.3 - 0.9 [facility] x10(3)/[facility] LABORATORY Eosinophils % 0.1 % [facility] LABORATORY Eosinophils Abs 0.0 0.0 - 0.4 [facility] x10(3)/[facility] LABORATORY Basophils % 0.2 % [facility] LABORATORY Basophils Abs 0.0 0.0 - 0.1 [facility] x10(3)/[facility] LABORATORY Immature Gran % 0.60 % [place] [...] Organization Address City/State/[place] [address] (ABNORMAL) Hemogram (07/05/2017 8:20 PM EST) Analysis Performed At Patho logist Time Signature WBC 10.3 (H) 4.0 - 9.5 [facility] x10(3)/[facility] LABORATORY RBC 4.64 4.58 - [place] [facility] 5.54 [facility] x10(6)/[facility] LABORATORY Hemoglobin 14.1 13.7 - [facility] 16.5 gm/dL [facility] LABORATORY Hematocrit 40.8 40.5 - [place] [facility] 48.5 % [facility] LABORATORY MCV 87.9 82.9 - [place] [facility] 93.1 fL [facility] LABORATORY MCH 30.4 27.5 - [place] [facility] 32.1 pg [facility] LABORATORY MCHC 34.6 32.0 - [place] [facility] 35.7 gm/dL [facility] LABORATORY Platelets 204 145 - 357 [facility] x10(3)/[facility] LABORATORY RDWSD 46.1 (H) 36.0 - [place] [facility] 45.0 [facility] LABORATORY RDWCV 14.5 (H) 11.4 - [facility] 13.8 % [facility] LABORATORY MPV 9.7 7.6 - 12.9 [facility] LABORATORY nRBC % Auto 0.0 % [facility] LABORATORY nRBC Abs Auto 0.000 0.000 - [facility] 0.000 [facility] x10(3)/[facility] LABORATORY Specimen Anatomical Collection Method Collection Time Receive d Time (Source) Location / / Volume Laterality Blood specimen 07/05/2017 8:20 PM 017 8:27 (specimen) EST PM EST Resulting Agency Comment Spec In Lab Daphne Shahid MD HEMATOLOGY ORDERABLES Performing Organization Address City/[facility]/ZIP Code Phon e Number [address] APTT (07/05/2017 8:20 PM EST) athologist Signature PTT 32 25 - 35 sec [facility] LABORATORY Comment: The recommended therapeutic range for fu ll dose, unfractionated heparin at [facility] is 80 ? 114 [...] Shahid MD HEMATOLOGY ORDERABLES Performing Organization Address City/[facility]/[place] [address] (ABNORMAL) Cardiac Enzymes (LEB/CGP) (07/05/2017 8:20 PM EST) athologist Signature Troponin-T 2.11 (H) 0.00 - [facility] 0.00 ng/mL [facility] LABORATORY Comment: The 99th percentile for Troponin T is le ss than 0.01 ng/mL, any detectable cTnT concentration using this assay should be considered elevated. According to the third universal definit ion of myocardial infarction the following criteria with a clinical prese ntation consistent with acute myocardial ischemia meets the diagnosis for a myocardial infarction ([place]). Detection of a rise and/or fall of [...] additional sample may be indicated. Reference: Third Leland Definition of Myocardial Infarction. Journal of the [place] College [employer] 2012;60:1581-98 CK, Total 149 0 - 200 unit/L [facility] LABORATORY Specimen Anatomical Collection Method Collection Time Receive d Time (Source) Location / / Volume Laterality Blood specimen 07/05/2017 8:20 PM 017 8:27 (specimen) EST PM EST Resulting Agency Comment Spec In Lab Daphne Shahid MD CHEMISTRY ORDERABLES Performing Organization Address City/[facility]/[place] [address] (ABNORMAL) Magnesium (07/05/2017 8:20 PM EST) P athologist Signature Magnesium 0.68 (L) 0.69 - 1.07 [facility] mmol/L [facility] LABORATORY Specimen Anatomical Collection Method Collection Time Receive d Time (Source) Location / / Volume Laterality Blood specimen 07/05/2017 8:20 PM 017 8:27 (specimen) EST PM EST Resulting Agency Comment Spec In Lab Daphne Shahid MD CHEMISTRY ORDERABLES Performing Organization Address City/[facility]/[place] [address] (ABNORMAL) Basic Metabolic Panel (non-fasting) (07/05/2017 8:20 PM EST) athologist Signature Glucose Lvl 321 (H) 65 - 199 [facility] mg/dL [facility] LABORATORY Comment: Diabetes: >=200 mg/dL plus symp toms BUN 20 10 - 20 mg/dL [facility] LABORATORY Creatinine 1.12 0.80 - 1.50 mg/dL [facility] LABORATORY Sodium 139 135 - 145 mmol/L [facility] LABORATORY Potassium 3.8 3.5 - 5.0 mmol/L [facility] [...] or in patients with acute kidney failure. [email or web address] http://CoTweet/DHMCnkf Specimen Anatomical Collection Method Collection Time Receive d Time (Source) Location / / Volume Laterality Blood specimen 07/05/2017 8:20 PM 017 8:27 (specimen) EST PM EST Resulting Agency Comment Spec In Lab Daphne Shahid MD CHEMISTRY ORDERABLES Performing Organization Address City/State/ZIP [place] [address] (ABNORMAL) POCT Glucose (07/05/2017 7:32 PM EST) athologist Signature POC Glucose 296 (H) 65 - 199 [facility] mg/dL [facility] LABORATORY Comment: Supplemental ranges: <140 mg/dL before meals <180 mg/dL all other times of the day Specimen Anatomical Collection Method Collection Time Receive d Time (Source) Location / / Volume Laterality Blood specimen 07/05/2017 7:32 PM 017 7:32 (specimen) EST PM EST Daphne Shahid MD POINT OF CARE TEST ORDERABLE S Performing Organization Address City/State/Z[place] [address] CARDIAC CATHETERIZATION (07/05/2017 6:47 PM EST) Specimen (Source) Anatomical Location Collection Method / Collectio n Time Received Time / Laterality Volume Narrative CARDIOMAC SYSTEM - 07/05/2017 7:27 PM ES T ?[facility] ? Cardiac Cathete rization/Intervention Report ? Patient Name: Natalya, Gregory ? Procedure Date: 07/05/2017 ? A #: [id number] ? Primary Physician: Clarisa, Jet Sampson ? Case #: [id number] ? File Name: [id number] ? Catheterization Order Number: [id number] ? [facility] ? Final Report [place], [place] ? Patient Name: ? Gregory Natalya ?ID#: ?[id number] ? : ?1945 ? Procedure Date: ? [...] non -STEMI (w/i 7 days). Citizen Of [place] ?Cardiovascular Society angina c lass was IV. 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 ? Jet Mckenna, M.D. ? Electronically Signed by: Jet Robbins s, M.D. ? Report Finalized: 07/05/2017 ??19:23 ? Report Last Ammended: 10/26/2017 ??10:29 ? Procedure Note Jet Mckenna MD - 10/26/2017Formatt ing of this note might be different from the original. [facility] Cardiac Catheterization/Intervention Re port Patient Name: Gregory Hoang Procedure Date: 07/05/2017 A #: [id number] Primary Physician: Jet Mckenna Case #: [id number] File Name: [id number] Catheterization Order Number: [id number] [facility] Final Report [place], [place] Patient Name: Gregory Hoang ID#: [id number] : 1945 Procedure Date: July 05, [...] non-STEMI ( w/i 7 days). Citizen Of [place] Cardiovascular Society angina class was IV. No [...] site angiograph y and IABP insertion in industrial laborer. Jet Mckenna M.D. Electronically Signed by: [...] Mccollum ? (Age): 1945(72y) Med Rec#: ? [id number] ?Sex: ?M ? Site Loc: ? [facility] ?Ht / Wt: ??173(cm)/86(kg) Pt. Loc: ?[facility] ? BSA: ?2 Study Date: ?? 07/05/2017 ?Pt. Type: Inpatient Tape: ? Referring: Daphne Shahid ([id number]) Referring: MANDA ALCANTAR Reading: Blade Preston ([id number]) Creative Art Therapist: Dayami Paula BA, [facility] Diagnosis: *ICD-10-PCS Non-ST elevation (NSTEMI) [...] E-wave Vmax ?0.8 ?m/sec ? MV deceleration itwt265 ?msec ? MV A-wave Vmax ?0.8 ?m/sec [...] ? Mid-Inferior ?Akinetic ? Mid-Inferoseptal ?Hypokinetic ? [place]-Septal ? Akinetic ? [place]-Anterior ? Hypokinetic ? [place]-Lateral ?Hypokinetic ? [place]-Inferior ? Akinetic ? [place]-Tip ?Akinetic ? This report has been electronically sign ed by: _ Blade Preston MD ? 07/06/2017 08 :53:15 [facility] Procedure Note Blade Preston MD - 07/06/2017Formatt ing of this note might be different from the original. Procedure: Transthoracic Echocardiogram Patient: NATALYA MCBRIDE(Age): [birth year]72y) Med Rec#: [id number] Sex: M Site Loc: [facility] Ht / Wt: 173(cm)/86(kg) Pt. Loc: [facility] BSA: 2 Study Date: 07/05/2017 Pt. Type: Inpatie nt Tape: Referring: Daphne Shahid ([id number]) Referring: MANDA ALCANTAR Reading: Blade Preston ([id number]) Creative Art Therapist: Dayami Paula BA, [facility] Diagnosis: *ICD-10-PCS Non-ST elevation (NSTEMI) [...] MV E-wave Vmax 0.8 m/sec MV deceleration rmiz602 msec MV A-wave Vmax 0.8 m/sec MV [...] Hypokinetic Mid-Posterolateral Hypokinetic Mid-Inferior Akinetic Mid-Inferoseptal Hypokinetic [place]-Septal Akinetic [place]-Anterior Hypokinetic [place]-Lateral Hypokinetic [place]-Inferior Akinetic [place]-Tip Akinetic This report has been electronically sign ed by: _ Blade Preston MD 07/06/2017 08:53:15 Images reviewed and interpretation verif ied [facility] Cardiac Ultrasound Laboratory Daphne Shaihd MD ECHO ORDERABLES Performing Organization Address City/State/ZIP Code Phon e Number [facility] Differential, Automated (07/05/2017 4:55 PM EST) P athologist Signature Neutrophils % 77.0 % [facility] LABORATORY Neutr Abs (ANC) 5.26 1.70 - [facility] 6.10 [facility] x10(3)/[facility] LABORATORY Lymphocytes % 13.3 % [facility] LABORATORY Lymphocytes Abs 0.9 0.9 - 3.2 [facility] x10(3)/[facility] LABORATORY Monocytes % 8.2 % [facility] LABORATORY Monocyte Abs 0.6 0.3 - 0.9 [facility] x10(3)/[facility] LABORATORY Eosinophils % 0.7 % [facility] LABORATORY Eosinophils Abs 0.0 0.0 - 0.4 [facility] x10(3)/[facility] LABORATORY Basophils % 0.4 % [facility] LABORATORY Basophils Abs 0.0 0.0 - 0.1 [facility] x10(3)/[facility] LABORATORY Immature Gran % 0.40 % [...] Melisa Gran Abs 0.03 0.00 - 0.04 x10(3)/[facility] MAR Y [facility] LABORATORY Specimen Anatomical Collection Method Collection Time Receive d Time (Source) Location / / Volume Laterality Blood specimen 07/05/2017 4:55 PM 017 5:24 (specimen) EST PM EST Resulting Agency Comment Spec In Lab Daphne Shahid MD HEMATOLOGY ORDERABLES Performing Organization Address City/State/Z[place] [address] (ABNORMAL) Hemogram (07/05/2017 4:55 PM EST) Analysis Performed At Patho logist Time Signature WBC 6.8 4.0 - 9.5 [facility] x10(3)/[facility] LABORATORY RBC 4.67 4.58 - [facility] 5.54 [facility] x10(6)/[facility] LABORATORY Hemoglobin 14.0 13.7 - [facility] 16.5 gm/dL [facility] LABORATORY Hematocrit 41.0 40.5 - [facility] 48.5 % [facility] LABORATORY MCV 87.8 82.9 - [facility] 93.1 [facility] LABORATORY MCH 30.0 27.5 - [facility] 32.1 pg [facility] LABORATORY MCHC 34.1 32.0 - [facility] 35.7 gm/dL [facility] LABORATORY Platelets 197 145 - 357 [facility] x10(3)/[facility] LABORATORY RDWSD 46.4 (H) 36.0 - [facility] 45.0 [facility] LABORATORY RDWCV 14.5 (H) 11.4 - [facility] 13.8 % [facility] LABORATORY MPV 9.7 7.6 - 12.9 [facility] LABORATORY nRBC % Auto 0.0 % [facility] LABORATORY nRBC Abs Auto 0.000 0.000 - [facility] 0.000 [facility] x10(3)/[facility] LABORATORY Specimen Anatomical Collection Method Collection Time Receive d Time (Source) Location / / Volume Laterality Blood specimen 07/05/2017 4:55 PM 017 5:24 (specimen) EST PM EST Resulting Agency Comment Spec In Lab Daphne Shahid MD HEMATOLOGY ORDERABLES Performing Organization Address City/[facility]/[place] [address] (ABNORMAL) Cardiac Enzymes (LEB/CGP) (07/05/2017 4:55 PM EST) P athologist Signature Troponin-T 1.69 (H) 0.00 - [place] [facility] 0.00 ng/mL [facility] LABORATORY Comment: The 99th percentile for Troponin T is le ss than 0.01 ng/mL, any detectable cTnT concentration using this assay should be considered elevated. According to the third universal definit ion of myocardial infarction the following criteria with a clinical prese ntation consistent with acute myocardial ischemia meets the diagnosis for a myocardial infarction ([place]). Detection of a rise and/or fall of [...] additional sample may be indicated. Reference: Third Leland Definition of Myocardial Infarction. Journal of the [place] College [employer]iology 2012;60:1581-98 CK, Total 191 0 - 200 unit/L [facility] LABORATORY Specimen Anatomical Collection Method Collection Time Receive d Time (Source) Location / / Volume Laterality Blood specimen 07/05/2017 4:55 PM 017 5:56 (specimen) EST PM EST Resulting Agency Comment Spec In Lab Daphne Shahid MD CHEMISTRY ORDERABLES Performing Organization Address City/[facility]/[place] [address] (ABNORMAL) pro-Brain Natriuretic Peptide (07/05/2017 4:55 PM EST) athologist Signature ProBNP 1,598 (H) <=125 [facility] pg/mL [facility] LABORATORY Specimen Anatomical Collection Method Collection Time Receive d Time (Source) Location / / Volume Laterality Blood specimen 07/05/2017 4:55 PM 017 5:24 (specimen) EST PM EST Resulting Agency Comment Spec In Lab Daphne Shahid MD CHEMISTRY ORDERABLES Performing Organization Address City/[facility]/ZIP Code Phon e Number [address] Magnesium (07/05/2017 4:55 PM EST) athologist [facility] Magnesium 0.78 0.69 - 1.07 [facility] mmol/L [facility] LABORATORY Specimen Anatomical Collection Method Collection Time Receive d Time (Source) Location / / Volume Laterality Blood specimen 07/05/2017 4:55 PM 017 5:24 (specimen) EST PM EST Resulting Agency Comment Spec In Lab Daphne Shahid MD CHEMISTRY ORDERABLES Performing Organization Address City/State/ZIP Code Phon e Number [address] (ABNORMAL) Basic Metabolic Panel (non-fasting) (07/05/2017 4:55 PM EST) athologist [facility] Glucose Lvl 230 (H) 65 - 199 [facility] mg/dL [facility] - [...] or in patients with acute kidney failure. [email or web address] [email or web address]/DHMCnkf Specimen Anatomical Collection Method Collection Time Receive d Time (Source) Location / / Volume Laterality Blood specimen 07/05/2017 4:55 PM 017 5:24 (specimen) EST PM EST Resulting Agency Comment Spec In Lab Daphne Shahid MD CHEMISTRY ORDERABLES Performing Organization Address City/[facility] [place] [address] (ABNORMAL) APTT (07/05/2017 4:55 PM EST) P athologist Signature PTT 41 (H) 25 - 35 sec [facility] LABORATORY Comment: The recommended therapeutic range for fu ll dose, unfractionated heparin at [facility] is 80 ? 114 [...] Shahid MD HEMATOLOGY ORDERABLES Performing Organization Address City/[facility]/ZIP Code Phon e Number [address] (ABNORMAL) POCT Glucose (07/05/2017 4:53 PM EST) P athologist Signature POC Glucose 208 (H) 65 - 199 [facility] mg/dL [facility] LABORATORY Comment: Supplemental ranges: <140 mg/dL before meals <180 mg/dL all other times of the day Specimen Anatomical Collection Method Collection Time Receive d Time (Source) Location / / Volume Laterality Blood specimen 07/05/2017 4:53 PM 017 4:53 (specimen) EST PM EST Daphne Shahid MD POINT OF CARE TEST ORDERABLE S Performing Organization Address City/State/ZIP [place] [address] EKG 12 Lead (07/05/2017 4:32 PM EST) Component Value Ref Range Test Analysis Performed Pathologis t Method Time At Signature Ventricular rate 97 BPM MUSE SYSTEM Atrial Rate 97 BPM MUSE SYSTEM P-R Interval 148 ms MUSE SYSTEM QRS Duration 96 ms MUSE SYSTEM Q-T Interval 364 ms MUSE SYSTEM QTC Calculated 462 ms MUSE SYSTEM (Bezet) Calculated P [place] 48 degrees MUSE SYSTEM Calculated R [place] -33 degrees MUSE SYSTEM Calculated T [place] 98 degrees MUSE SYSTEM INTERPRETATION Normal sinus [...]
Routine documented in this encounter Care Teams Daytime Babysitter Relationship Specialty Start Date End Date Lovely Vicente MD PCP - General 04/16/[address] [place] [address] documented as of this encounter
--- OUTSIDE RECORDS SUMMARY | 2022-02-18 08:22 | XMS_ITS | Encounter Summary ---
:1945 Author Organization [facility] [place] [address] Care Team Providers Name Role Phone Lovely Vicente MD Primary Care Provider Reason for Visit Reason Comments Skin Lesion Encounter Details Date Type Department Care Team Description 11/24/2016 [facility] uncertain behavior [facility] skin; Road IIIMD Pigmented skin lesion of uncertain natur e; [address] [facility] [place] of [place] [address] [facility] SIMÓN-DERMATOLGY [place], [place] [address] Social History Tobacco Use Types [...] or concerns, please call the office at [phone]. If it is after 5PM, or a holiday or weekend, please call [phone] and ask for the Cash Management Associate on-call. documented in this encounter Progress Notes [...] 71 y.o. year old male.Established patient of [facility]. Last seen 06/05/16. Here today for new [...] Rigoberto Garcia MD Section of Dermatology [facility] documented in this encounter Plan of Treatment Upcoming Encounters Date Type Specialty Care Team Description 02/19/2022 Laboratory Appointment Lab 02/19/2022 Office Visit Cardiology Liz Poole PA [facility] er Cardiology Dept [place], [place] [address] (Mikayla alcaraz) 03/26/2022 Office Visit Cardiology Vitaliy Nobles MD [facility] CARDIOLOGY [place], [place] [address] (Mikayla alcaraz) documented as of [...] Component Value Ref Test Analysis Performed At [facility] Range Method Time Signature Surgical [id number] ?Location: [facility] Report The signing pathologist has [...] Organization Address City/State/[place] [address] Specimen to Pathology (NON-OR) (11/24/2016 8:28 AM EDT) Specimen Anatomical Collection Method Collection Time Receive d Time (Source) Location / / Volume Laterality AP Specimen 11/24/2016 8:28 AM 7 9:29 EDT AM EDT Narrative [facility] LABORAT ORY - 11/24/2016 9:29 AM EDT Specimen requisition ordered. ??Separate Pathology report to follow Resulting Agency Comment Spec In Lab Rigoberto Garcia III, MD PATHOLOGY/CYTOLOGY ORDERABLE S Performing Organization Address City/State/ZIP Code Phon e Number [place] [id number] documented in this encounter Visit Diagnoses Diagnosis Neoplasm of uncertain behavior of skin Pigmented skin lesion of uncertain natur e History of melanoma Personal history of malignant melanoma o f skin Chronic systolic heart failure documented in this encounter Care Teams Programmable Logic Controller Assembler Relationship Specialty Start Date End Date Lovely Vicente MD PCP - General 04/16/[address] [place] [address] documented as of this encounter
--- OUTSIDE RECORDS SUMMARY | 2022-02-18 08:22 | XMS_ITS | Encounter Summary ---
:1945 Author Organization [facility] [place] [address] Care Team Providers Name Role Phone Lovely Vicente MD Primary Care Provider Encounter Details Date Type Department Care Team Description 09/03/2016 Laboratory Appointment Lab at [facility] Hx of papillary [facility] [place] [id number] Social History Tobacco Use Types Packs/Day Years [...] PA [facility] er Cardiology Dept [place], [place] [address] (Wo rk) 03/26/2022 Office Visit Cardiology Vitaliy Nobles MD [facility] ER CARDIOLOGY [place], [place] [address] (Wo [...] EST) P athologist Signature Thyroglobulin <0.4 <=54.9 [facility] ng/mL [facility] Comment: Interpret with caution. Tg levels [...] BR et al. J Clin Endo Metab 1999;84:0326-2124). Assay performed using the DPC Immulite T g immunometric assay. (lowest detection limit is <0.4 ng/ml). Thyroglob Ab <20.0 0.0 - 40.0 IU/mL [facility] LAB[facility] Comment: Assay performed is the [...] Organization Address City/State/[place] [address] TSH (09/03/2016 11:07 AM EST) P athologist Signature TSH 3.01 0.27 - 4.20 KATALINA DAVIS mcIU/mL [facility] Specimen Anatomical Collection Method Collection Time Receive d Time (Source) Location / / Volume Laterality Blood specimen 09/03/2016 11:07 7 (specimen) AM EST 11:22 AM EST Resulting Agency Comment Spec In Lab Luz Prescott MD CHEMISTRY ORDERABLES Performing Organization Address City/State/[place] [address] documented in this encounter Visit Diagnoses Diagnosis Hx of papillary thyroid carcinoma Personal history of malignant neoplasm o f thyroid Chronic systolic heart failure documented in this encounter Care Teams Jig And Fixture Maker Relationship Specialty Start Date End Date Lovely Vicente MD PCP - General 04/16/[address] [place] [address] documented as of this encounter
--- OUTSIDE RECORDS SUMMARY | 2022-02-18 08:22 | XMS_ITS | Encounter Summary ---
:1945 Author Organization [facility] [place] [address] Care Team Providers Name Role Phone Lovely Vicente MD Primary Care Provider Reason for Visit Reason Onset Date Comments Referral 10/30/2015 Urgent referral for mac on SIM[address]N [place]AVIS Encounter Details Date Type Department Care Team Description 10/30/2015 Telephone Ophthalmology at [facility] C Jayson Ruiz Referral (Urgent [facility] MD Grabiel referral for mac on [facility] DR SIM[address]N [place]) [place] [address] OPHTHALMOLOGY DEPT. [phone] [place], [place] [address] (Wo rk) Social History Tobacco [...] 02/19/2022 Office Visit Cardiology Liz Poole PA [facility] er Cardiology Dept [place], [place] [address] (Wo rk) 03/26/2022 Office Visit Cardiology Vitaliy Nobles MD [facility] ER CARDIOLOGY [place], [place] [address] (Wo rk) documented as of this encounter Visit Diagnoses Not on filedocumented in this encounter Care Teams Dredge Lever Operator Relationship Specialty Start Date End Date Lovely Vicente MD PCP - General 04/16/15 [facility] [address] [place] [address] documented as of this encounter
--- OUTSIDE RECORDS SUMMARY | 2022-02-18 08:22 | XMS_ITS | Encounter Summary ---
:1945 Author Organization [facility] [place] [address] Care Team Providers Name Role Phone Lovely Vicente MD Primary Care Provider Encounter Details Date Type Department Care Team Description 07/05/2017 Telephone Cardiology Kim Galindo MD [facility] [place] [address] CARDIOLOGY DEPT [phone] [place], [place] [address] (Wo rk) Social History [...] 1:54pm Referring Provider: Ivania CROWELL) Patient Location: [facility] Presenting Symptoms per OSH: 72 year old [...] infarct and elevated troponin, transport patient to [facility] for cath this afternoon and arrhythmia monitoring. Kim Galindo MD African History Professor documented in this encounter Plan of Treatment Upcoming Encounters Date Type Specialty Care Team Description 02/19/2022 Laboratory Appointment Lab 02/19/2022 Office Visit Cardiology Liz Poole PA [facility] er Cardiology Dept [place], [place] [address] (Wo rk) 03/26/2022 Office Visit Cardiology Vitaliy Nobles MD [facility] ER CARDIOLOGY [place], [place] [address] (Wo rk) documented as of this encounter Visit Diagnoses Not on filedocumented in this encounter Care Teams Director Of Restaurant Operations Relationship Specialty Start Date End Date Lovely Vicente MD PCP - General 04/16/15 [facility] [address] [place] [address] documented as of this encounter
--- OUTSIDE RECORDS SUMMARY | 2022-02-18 08:22 | XMS_ITS | Encounter Summary ---
:1945 Author Organization [place] [address] Care Team Providers Name Role Phone Lovely Vicente MD Primary Care Provider Encounter Details Date Type Department Care Team Description 11/28/2016 Telephone Dermatology at [facility] Rigoberto Garcia III, [address] [place] [address] [facility] [phone] [facility] SIMÓN-DERMAT [place], [place] [address] (Wo rk) Social History Tobacco [...] provider. Rigoberto Garcia MD Section of Dermatology [facility] documented in this encounter Plan of Treatment Upcoming Encounters Date Type Specialty Care Team Description 02/19/2022 Laboratory Appointment Lab 02/19/2022 Office Visit Cardiology Liz Poole PA [facility] Cardiology [place], [place] [address] (Wo rk) 03/26/2022 Office Visit Cardiology Vitaliy Nobles MD [facility] CARDIOLOGY [place], [place] [address] (Wo rk) documented as of this encounter Visit Diagnoses Not on filedocumented in this encounter Care Teams Eyeglass Lens Grinder Relationship Specialty Start Date End Date Lovely Vicente MD PCP - General 04/16/[address] [place] [address] documented as of this encounter
--- OUTSIDE RECORDS SUMMARY | 2022-02-18 08:22 | XMS_ITS | Encounter Summary ---
:1945 Author Organization [facility] [place] [address] Care Team Providers Name Role Phone Lovely Vicente MD Primary Care Provider Encounter Details Date Type Department Care Team Description 09/03/2016 Office Visit Endocrinology at [facility] Maria Ines Stallings of [facility] [place] [address] [place] [address] ENDOCRINOLOGY DEPT [place], [place] [address] Social History Tobacco Use Types [...] to his magnesium pill. LUZ PRESCOTT MD Claims Clerkpole shaver Section of Endocrinology [facility] Luz Prescott MD - 09/03/2016 11:30 AM [...] sonographic evidence of recurrence. LUZ PRESCOTT MD Claims Clerkpole shaver Section of Endocrinology [facility] documented in this encounter Plan of Treatment Upcoming Encounters Date Type Specialty Care Team Description 02/19/2022 Laboratory Appointment Lab 02/19/2022 Office Visit Cardiology Liz Poole PA [facility] Cardiology Dept [place], [place] [address] (Wo rk) 03/26/2022 Office Visit Cardiology Vitaliy Nobles MD [facility] CARDIOLOGY [place], [place] [address] (Wo rk) documented as of this encounter Results Thyroglobulin (09/07/2017 2:41 PM EST) athologist Signature Thyroglobulin 1.4 <=54.9 [facility] ng/mL [facility] Comment: Thyroglobulin levels may be [...] Thyroglob Ab <20.0 0.0 - 40.0 IU/mL [facility] Comment: Assay performed is the DPC Immulite Tg-A b immunometric assay. (Cutoff for TgAb negativity is <20 IU/ml ) Specimen Anatomical Collection Method Collection Time Receive d Time (Source) Location / / Volume Laterality Blood specimen 09/07/2017 2:41 PM 018 2:46 (specimen) EST PM EST Resulting Agency Comment Spec In Lab Luz Prescott MD CHEMISTRY ORDERABLES Performing Organization Address City/[facility]/ZIP Code Phon e Number [address] TSH (09/07/2017 2:41 PM EST) athologist Signature TSH 3.93 0.27 - 4.20 KATALINA DAVIS mlU/ML [facility] LABORATORY Specimen Anatomical Collection Method Collection Time Receive d Time (Source) Location / / Volume Laterality Blood specimen 09/07/2017 2:41 PM 018 2:46 (specimen) EST PM EST Resulting Agency Comment Spec In Lab Luz Prescott MD CHEMISTRY ORDERABLES Performing Organization Address City/[facility] Phon e Number [address] Thyroglobulin (09/03/2016 11:07 AM EST) athologist Signature Thyroglobulin <0.4 <=54.9 KATALINA DAVIS ng/mL [facility] Comment: Interpret with caution. Tg levels [...] DALLAS et al. J Clin Endo Metab 1999;84:8071-4821). Assay performed using the DPC Immulite T g immunometric assay. (lowest detection limit is <0.4 ng/ml). Thyroglob Ab <20.0 0.0 - 40.0 IU/mL [facility] Comment: Assay performed is the DPC Immulite Tg-A b immunometric assay. (Cutoff for TgAb negativity is <20 IU/ml ) Specimen Anatomical Collection Method Collection Time Receive d Time (Source) Location / / Volume Laterality Blood specimen 09/03/2016 11: 7 1:37 (specimen) AM EST PM EST Resulting Agency Comment Spec In Lab Luz Perscott MD CHEMISTRY ORDERABLES Performing Organization Address City/[facility]/[place] [address] TSH (09/03/2016 11:07 AM EST) P athologist Signature TSH 3.01 0.27 - 4.20 [facility] mcIU/mL [facility]OR[facility]ORY Specimen Anatomical Collection Method Collection Time Receive d Time (Source) Location / / Volume Laterality Blood specimen 09/03/2016 11:07 7 (specimen) AM EST 11:22 AM EST Resulting Agency Comment Spec In Lab Luz Prescott MD CHEMISTRY ORDERABLES Performing Organization Address City/[facility]/[place] [address] documented in this encounter Visit Diagnoses Diagnosis Hx of papillary thyroid carcinoma Personal history of malignant neoplasm o f thyroid Chronic systolic heart failure documented in this encounter Care Teams Joiner Relationship Specialty Start Date End Date Lovely Vicente MD PCP - General 04/16/[address] [place] [address] documented as of this encounter
--- OUTSIDE RECORDS SUMMARY | 2022-02-18 08:22 | XMS_ITS | Encounter Summary ---
:1945 Author Organization [facility] [place] [address] Care Team Providers Name Role Phone Lovely Vicente MD Primary Care Provider Reason for Visit Reason Comments Skin Check Encounter Details Date Type Department Care Team Description 06/05/2016 Office Visit Dermatology at Rigoberto Forman istory of melanoma; Abdelrahman HOOPER MD Seborrheic keratosis; [address] [facility] [place] (actinic keratosis); [place] [address] Multiple nevi; [phone] [facility] Scar [address]-DERMATOLGY [place], [place] [address] Social History Tobacco Use Types [...] mid back in 2005 ?? Psoriasis HPI Dno Fatima is a 71 y.o. year old [...] Diagnostic, Drum (ACCU-CHEK COMPACT TEST) Strip by [facility].(Non- Drug; Combo Route) route 2 times daily. [...] encounter. Rigoberto Garcia MD Section of Dermatology [facility] documented in this encounter Plan of Treatment Upcoming Encounters Date Type Specialty Care Team Description 02/19/2022 Laboratory Appointment Lab 02/19/2022 Office Visit Cardiology Liz Poole PA [facility] er Dr Cardiology Dept [place], [place] [address] (Wo rk) 03/26/2022 Office Visit Cardiology Vitaliy Nobles MD [facility] CARDIOLOGY [place], [place] [address] (Wo rk) documented as of this encounter Visit Diagnoses Diagnosis History of melanoma Personal history of malignant melanoma o f skin Seborrheic keratosis Other seborrheic keratosis [place] (actinic keratosis) Actinic keratosis Multiple nevi Benign neoplasm of skin, site unspecifie d Scar Scar condition and fibrosis of skin Chronic systolic heart failure documented in this encounter Care Teams Hand Singer Relationship Specialty Start Date End Date Lovely Vicente MD PCP - General 04/16/[address] [place] [address] documented as of this encounter
--- OUTSIDE RECORDS SUMMARY | 2022-02-18 08:22 | XMS_ITS | Encounter Summary ---
:1945 Author Organization [facility] [place] [address] Care Team Providers Name Role Phone Lovely Vicente MD Primary Care Provider Reason for Visit Reason Comments Nevus excision dysplastic nevus mi d upper abdomen Encounter Details Date Type Department Care Team Description 12/03/2016 Procedure visit Dermatology at Halima [facility]ois Dysplastic nevus of Road MD Adrián trunk [address] [facility] [address] [facility] [phone] [address]-DERMATOLGY [place] [address] Social History Tobacco Use Types Packs/Day Years [...] Halima Cordero MD during the day at [phone] Nurse: Mira [phone] Amy After 5 PM and on weekends, please call the hospital number , and ask for the Canvas Cutter Machine seasonal package handler. documented in this encounter Progress Notes Halima Cordero MD - 12/10/2016 5:41 PM EDT Gwendolyn, Excision shows scar, there is no residual of the severely dysplastic nevus. Please notify patient and check on wound healing. Thank you, DTB Halima Cordero MD - 12/03/2016 3:00 PM EDT Images from the original note were not included. Dermatology Procedure note: Attending: Halima Cordero MD Gas Pump Attendant: Mira James LPN Referring MD: Rigoberto Garcia [...] to call the clinic or the on-call head sulfide operator over the weekend. ??? Name of Procedure? [...] Office Visit Cardiology Liz Poole PA [facility] er Cardiology Dept [place], [place] [address] (Wo rk) 03/26/2022 Office Visit Cardiology Vitaliy Nobles MD [facility] ER CARDIOLOGY [place], [place] [address] (Wo rk) documented as of this encounter [...] Component Value Ref Test Analysis Performed At [facility] Range Method Time Signature Surgical [id number] ?Location: [facility] Pathology [facility] Report The signing pathologist has (i) examined [...] Clinical Diagnosis: Dysplastic nevus, see previous pathology [id number] SPECIMEN PROCESSING A - Labeled/Fixative: Mid-upper abdomen, [...] Organization Address City/State/Z[place] [address] Specimen to Pathology (NON-OR) (12/03/2016 3:31 PM EDT) Specimen Anatomical Collection Method Collection Time Receive d Time (Source) Location / / Volume Laterality AP Specimen 12/03/2016 3:31 PM 7 6:27 EDT PM EDT Narrative [facility] LABORAT ORY - 12/03/2016 6:27 PM EDT Specimen requisition ordered. ??Separate Pathology report to follow Resulting Agency Comment Spec In Lab Halima Cordero MD PATHOLOGY/CYTOLOGY ORDERABLE S Performing Organization Address City/[facility]/ZIP [place] [address] documented in this encounter Visit Diagnoses Diagnosis Dysplastic nevus of trunk Benign neoplasm of skin of trunk, except scrotum Chronic systolic heart failure documented in this encounter Care Teams Obstetrician/Gynecologist Relationship Specialty Start Date End Date Lovely Vicente MD PCP - General 04/16/15 [address] [place] [address] documented as of this encounter
--- OUTSIDE RECORDS SUMMARY | 2022-02-18 08:22 | XMS_ITS | Encounter Summary ---
:1945 [place] [address] Care Team Providers Name Role Phone Lovely Vicente MD Primary Care Provider Reason for Visit Reason Onset Date Comments Other 12/09/2016 RESULTS Encounter Details Date Type Department Care Team Description 12/09/2016 Telephone Dermatology at [facility] Halima Cadet MD Other (RESULTS) [address] [facility] [place] [address] [facility]-DERMATOLGY [phone] [place], [place] [address] (Wo rk) Social History Tobacco [...] EDT Spoke with patient's , Kisha (personal containers sales representative). I advised her Don's pathology [...] back. She can be reached back at [phone] documented in this encounter Plan of Treatment Upcoming Encounters Date Type Specialty Care Team Description 02/19/2022 Laboratory Appointment Lab 02/19/2022 Office Visit Cardiology Liz Poole PA [facility] Cardiology Dept [place], [place] [address] (Wo rk) 03/26/2022 Office Visit Cardiology Vitaliy Nobles MD [facility] CARDIOLOGY [place], [place] [address] (Wo rk) documented as of this encounter Visit Diagnoses Not on filedocumented in this encounter Care Teams Injection Wax Molder Relationship Specialty Start Date End Date Lovely Vicente MD PCP - General 04/16/[address] [place] [address] documented as of this encounter
--- OUTSIDE RECORDS SUMMARY | 2022-02-18 08:22 | XMS_ITS | Encounter Summary ---
:1945 Author Organization [facility] [place] [address] Care Team Providers Name Role Phone Lovely Vicente MD Primary Care Provider Reason for Visit Reason Comments Medication Refill Encounter Details Date Type Department Care Team Description 05/10/2015 Refill Endocrinology at [facility] Rosalind Covarrubias, [facility] [place] [address] [facility] [phone] ENDOCRINOLOGY [place], [place] [address] (Mikayla alcaraz) Social History Tobacco [...] PA [facility] er Cardiology Dept [place], [place] [address] (Wo rk) 03/26/2022 Office Visit Cardiology Vitaliy Nobles MD [facility] ER CARDIOLOGY [place], [place] [address] (Wo rk) documented as of this encounter Visit Diagnoses Not on filedocumented in this encounter Care Teams Marklogic Developer Relationship Specialty Start Date End Date Lovely Vicente MD PCP - General 04/16/[address] [place] [address] [address] [facility] [place] [address] documented as of this encounter
--- OUTSIDE RECORDS SUMMARY | 2022-02-18 08:22 | XMS_ITS | Encounter Summary ---
:1945 Author Organization [facility] [place] [address] Care Team Providers Name Role Phone Lovely Vicente MD Primary Care Provider Reason for Visit Reason Onset Date Comments Pre Procedure Call 12/02/2016 Encounter Details Date Type Department Care Team Description 12/02/2016 Telephone Dermatology at [facility] Mira James LPN Pre Procedure Call [address] [place] [address] Social History Tobacco Use Types Packs/Day [...] Liz Poole PA [facility] Cardiology [place], [place] [address] (Wo rk) 03/26/2022 Office Visit Cardiology Vitaliy Nobles MD [facility] CARDIOLOGY [place], [place] [address] (Wo rk) documented as of this encounter Visit Diagnoses Not on filedocumented in this encounter Care Teams Binder Cutter Hand Relationship Specialty Start Date End Date Lovely Vicente MD PCP - General 04/16/[address] [place] [address] documented as of this encounter
--- OUTSIDE RECORDS SUMMARY | 2022-02-18 08:22 | XMS_ITS | Encounter Summary ---
:1945 Author Organization [facility] [place] [address] Care Team Providers Name Role Phone Lovely Vicente MD Primary Care Provider Reason for Visit Reason Onset Date Comments Medication Refill 06/19/2016 Encounter Details Date Type Department Care Team Description 06/19/2016 Refill Endocrinology at [facility] Luz Stallings MD [facility] [place] [address] ENDOCRINOLOGY DEPT [phone] [place], [place] [address] (Wo rk) Social History Tobacco [...] Liz Poole PA [facility] er Cardiology Dept [place], [place] [address] (Wo rk) 03/26/2022 Office Visit Cardiology Vitaliy Nobles MD [facility] ER CARDIOLOGY [place], [place] [address] (Wo rk) documented as of this encounter Visit Diagnoses Not on filedocumented in this encounter Care Teams Housecleaner Relationship Specialty Start Date End Date Lovely Vicente MD PCP - General 04/16/[address] [place] [address] documented as of this encounter
--- OUTSIDE RECORDS SUMMARY | 2022-02-18 08:22 | XMS_ITS | Encounter Summary ---
:1945 Author Organization [facility] Address [address] [place] [address] Care Team Providers Name Role Phone Lovely Vicente MD Primary Care Provider Reason for Visit Reason Comments Skin Check Encounter Details Date Type Department Care Team Description 11/05/2015 Office Visit Dermatology at [facility] benign nevi; Abdelrahman HOOPER MD Lentigines; [address] [facility] History of melanoma; [place] [phone] Skin exam for malignant neoplasm [phone] [facility] [place], [place] [address] Social History Tobacco Use [...] Diagnostic, Drum (ACCU-CHEK COMPACT TEST) Strip by [facility].(Non- Drug; Combo Route) route 2 times daily. [...] encounter. Rigoberto Garcia MD Section of Dermatology [facility] documented in this encounter Plan of Treatment Upcoming Encounters Date Type Specialty Care Team Description 02/19/2022 Laboratory Appointment Lab 02/19/2022 Office Visit Cardiology Liz Poole PA [facility] Cardiology [place], [place] [address] (Wo rk) 03/26/2022 Office Visit Cardiology Vitaliy Nobles MD [facility] [place], [place] [address] (Wo rk) documented as of this encounter Visit Diagnoses Diagnosis Multiple benign nevi Benign neoplasm of skin, site unspecifie d Lentigines Other dyschromia History of melanoma Personal history of malignant melanoma o f skin Skin exam for malignant neoplasm Screening for malignant neoplasm of the skin Chronic systolic heart failure documented in this encounter Care Teams Store Product Demonstrator Relationship Specialty Start Date End Date Lovely Vicente MD PCP - General 04/16/[address] [place] [address] [address] [place] [address] documented as of this encounter
--- OUTSIDE RECORDS SUMMARY | 2022-02-18 08:22 | XMS_ITS | Encounter Summary ---
:1945 [place] [address] Care Team Providers Name Role Phone Lovely Vicente MD Primary Care Provider Reason for Visit Auth/Cert Specialty Diagnoses / Procedures Referred By Contact Refer red To Contact Diagnoses STEMI (ST elevation myocardial infarction) NSTEMI STEMI Procedures CARDIAC CATHETERIZATION NAYE IPI Referral ID Status Reason Start Date Expiration Date Visits Requ ested Visits Authorized [id number] 1 1 Encounter Details Date Type Department Care Team Description 07/05/2017 Surgery Coil Connector Jet Guan, CARDIAC CATHETERIZATION [facility] [place] [address] CARDIOLOGY DEPT. [phone] [place], [place] [address] (Wo rk) Social History Tobacco [...] this encounter Discharge Summaries Martha Teague S, SUPERVISOR CUTTING AND BONING - 07/14/2017 9:38 AM EST Inpatient - Discharge Summary Patient Name: Gregory Hoang Patient Age: 72 y.o. Birthdate: 1945 Language: Bolivian Race: White Ethnicity: Not nor Admit Date: [...] , @ 1:20p Patient to follow-up with Manager Of Software/heart failure team in one week. An appointment will be made for you. You may call [phone] Patient to follow-up with Cardiac Surgery, Dr. Yuan Webber, in ~ 4 weeks with CXR, EKG. Inpatient Provider Contact Information: [facility] [place]iac [place] [facility] [place] [address] FAX [phone] Discharge Diagnoses (Hospital Problems) Primary Diagnoses: CAD [...] SETUP performed by Manny Mcknight MD at [facility] OR ??? PRO CABG, ARTERIAL, SINGLE N/A 07/07/2017 @CABG, USING ARTERIAL GRAFT;SINGLE ARTERIAL GRAFT (WRVU 33.75) performed by Yuan Webber MD at [facility] OR ??? PRO CABG, ARTERY-VEIN, TWO N/A 07/07/2017 @CABG, TWO VENOUS GRAFTS & ARTERIAL GRAFT (WRVU 7.93) performed by Yuan Webber MD at [facility] OR ??? PRO COLONOSCOPY, REMV LESN, SNARE 01/16/2014 COLONOSCOPY, POLYPECTOMY, REMOVAL LESION BY SNARE performed by Nohemi Jaimes MD at [facility] ENDOSCOPY ??? PRO ENDOSCOPY W/VIDEO-ASST VEIN HARVEST, CABG Right 07/07/2017 ENDOSCOPIC HARVEST VEIN(S) FOR CABG (WRVU 0.31) performed by Yuan Webber MD at [facility] OR ??? PRO THYROIDECTOMY 03/28/2013 THYROIDECTOMY, TOTAL OR COMPLETE performed by Manny Mcknight MD at [facility] OR Prior To Admission Medications Prescriptions Prior to Admission Medication Sig Dispense Refill Last Dose ??? levothyroxine (SYNTHROID) 175 mcg Tablet Take 1 tablet by mouth daily. 90 tablet 3 07/05/2017 [id number] ??? ascorbic acid, vitamin C, (VITAMIN C) [...] Hospital Course: Gregory Hoang was admitted to [facility] on 07/05/2017 via the Cardiology Service. During his hospital course, he was taken emergently to the crime lab technician for an ongoing STEMI. An IABP [...] not take or discontinue any prescription or fqpw-hbb-ihrwchl medications without asking your doctor or pharmacist [...] to have your insulin doses adjusted. [facility] Endocrine clinic office Discharge Instructions: Call your doctor if: You have a fever of greater than 101 degrees, shaking chills, if you develop redness or drainage from your incision sites, or if you have questions. Please call your surgeon's office if you have any discharge or drainage from your chest incision. Your surgeon, Dr. Yuan Webber and/or the Cardiac Surgery Physician Polysomnography Technician Team may be reached at . Weight: [...] Dr. Yuan Webber. You may use a [place] Track or treadmill but avoid any pulling [...] friends, go to a movie, go to episcopalian, etc. Heavy activities: No hunting, skiing, jogging, snow shoveling, snowmobiling, lawn mowing, swimming, golf or tennis until after your return appointment with the surgeon. Do not ride motorcycles, [facility] tractors or horses. Avoid the use of [...] should resume a low fat, low cholesterol, [place] Heart Association Diet/Diabetic diet. Driving: No driving [...] , @ 1:20p Patient to follow-up with Manager Of Software/heart failure team in one week. Appointment will be made for you. You may call [phone] Patient to follow-up with Cardiac Surgery, Dr. Yuan Webber, in ~ 4 weeks with CXR, EKG. Cardiac Rehabilitation: Gregory Hoang was seen today regarding participation in the outpatient Phase 2 Cardiac Rehabilitation at [facility]. The patient agrees to a referral to this program. The referral will be sent at discharge and the patient should be contacted by the Program within 1- 2 weeks from discharge. ?? Future Appointments and Orders Future Appointments Provider Department Dept Phone 09/07/2017 3:00 PM LAB, THREE L Lab 3L [facility] [phone] 09/07/2017 4:00 PM Luz Prescott MD Endocrinology at [place] [phone] Future Orders Complete By Expires EKG 12 Lead [EKG1 Custom] 08/14/2017 02/13/2018 Process Instructions: Scheduling Instructions: Questions: Which DH location will this be performed?: [place] Is a rhythm strip needed?: No If EKG Reason is Pre-op Evaluation, indicate diagnosis for surgery.: XR Chest PA & Lateral (Generic) [30199 [id number] Custom] 08/14/2017 02/13/2018 Process Instructions: Scheduling Instructions: Questions: Where will study be performed?: [facility] Portable exam?: Reason for exam and clinical history: CABG x 3 Other pertinent information: Stat read required?: Date of injury if applicable: Requested Time: Referral to Cardiac Rehab [QCJ963 Custom] As directed Process Instructions: If no progress note charted, please enter Clinical details in comments. Scheduling Instructions: Questions: My question or request is: s/p CABG. Cardiac rehab at [facility] Referral to Home Health - at DISCHARGE [[id number] CPT(R)] As directed Process Instructions: Scheduling Instructions: Comments: DOCUMENTATION FOR VNA SERVICES (INCLUDING THOSE PATIENTS WITH MEDICARE COVERAGE REQUIRING HOME VNA SERVICES AND/OR HOSPICE SERVICES) PATIENT'S LOCATION: Gregory Hoang [address] [place] [address] [place] [address] (home) Telephone Information: Screening Specialist's Name: self In discussion with the attending physician, it is certified that this patient is under their care and that they, or a Nurse Practitioner, or Physician Polysomnography Technician who is working directly with them, had [...] for servicesas follows: HOME HEALTH AGENCY: [facility] ([facility] [place] [facility] in [place] PHONE: [phone] FAX: [phone] RN orders: Cardiopulmonary assessment, incisional assessment, assess vital signs, assessment of rehab progress, medication management and effectiveness, home safety evaluation. Please draw INR if indicated and send result to:Dr Vicente [phone] PT ORDERS: Continue rehab for endurance, gait stability and strength with mobility and transfers. Home safety evaluation. Home exercise program if appropriate. Start of Care Date:24-48 hours after discharge SPECIAL INSTRUCTIONS: For any follow up questions, needs, or issues please call the Cardiac Surgery Office at [phone] FOR MEDICARE ONLY: (please delete this section [...] OR AFTER 07/17/2017 Signed: Martha Teague APRN [facility] [place] of [place]iac [place] [facility] [place] [address] FAX [phone] Date: 07/14/2017 CC: MD Ivania Cr Betsy, PA [address] [place] [phone] documented in this encounter Discharge Instructions Discharge [...] to have your insulin doses adjusted. [facility] Endocrine clinic office Patient InstructionsStMartha mcdonald APRN [...] not take or discontinue any prescription or jfal-tti-bsxfpzs medications without asking your doctor or pharmacist [...] to have your insulin doses adjusted. [facility] Endocrine clinic office ? Discharge Instructions: ?? Call your doctor if: You have a fever of greater than 101 degrees, shaking chills, if you develop redness or drainage from your incision sites, or if you have questions. Please call your surgeon's office if you have any discharge or drainage from your chest incision. Your surgeon, Dr. Yuan Webber and/or the Cardiac Surgery Physician Polysomnography Technician Team may be reached at . ?? [...] Dr. Yuan Webber. You may use a [place] Track or treadmill but avoid any pulling [...] friends, go to a movie, go to episcopalian, etc. ?? Heavy activities: No hunting, skiing, jogging, snow shoveling, snowmobiling, lawn mowing, swimming, golf or tennis until after your return appointment with the surgeon. Do not ride motorcycles, [employer] tractors or horses. Avoid the use of [...] should resume a low fat, low cholesterol, [place] Heart Association Diet/Diabetic diet. ?? Driving: No [...] @ 1:20p ?? Patient to follow-up with Manager Of Software/heart failure team in one week. An appointment has been made for you, you can call [phone] ?? Patient to follow-up with Cardiac Surgery, Dr. Yuan Webber, in ~ 4 weeks with CXR, EKG. ? Cardiac Rehabilitation: Gregory Hoang??was seen today regarding participation in the outpatient Phase 2 Cardiac Rehabilitation at [facility]. ?? The patient agrees to a referral to this program.? The referral will be sent at discharge and the patient should be contacted by the Program within 1- 2 weeks from discharge. ? Future Appointments and Orders Future Appointments Provider Department Dept Phone ?? 09/07/2017 3:00 PM LAB, THREE L Lab 3L [facility] [phone] ?? 09/07/2017 4:00 PM Luz Prescott MD Endocrinology at [place] [phone] Future Orders Complete By Expires ?? EKG 12 Lead [EKG1 Custom] 08/14/2017 02/13/2018 ?? Process Instructions: ? Scheduling Instructions: ? Questions: ? Which location will this be performed?: [place] ?? Is a rhythm strip needed?: No ?? If EKG Reason is Pre-op Evaluation, indicate diagnosis for surgery.: ?? XR Chest PA & Lateral (Generic) [[id number] Custom] 08/14/2017 02/13/2018 ?? Process Instructions: ? Scheduling Instructions: ? Questions: ? Where will study be performed?: [facility] ?? Portable exam?: ?? Reason for exam and clinical history: CABG x 3 ?? Other pertinent information: ?? Stat read required?: ?? Date of injury if applicable: ?? Requested Time: ?? Referral to Cardiac Rehab [[id number] Custom] As directed ? Process Instructions: ?? If no progress note charted, please enter Clinical details in comments. ?? Scheduling Instructions: ? Questions: ? My question or request is: s/p CABG. Cardiac rehab at [facility] ? Arrangements for VNA/home care: [...] RN - 07/14/2017 2:34 PM EST The patient/call center support representative has been provided a list of Home Health Agencies/DME vendors which serve their preferred geographic area. A letter describing our affiliations was reviewed with them and theywere educated about their right to choose where referrals are placed. Patient requests referral to [facility]. PHONE: [phone] FAX: [phone] Expected date of discharge: 07/14 Referral routed to the Board Liner Operator for matching with agency/vendor and to [...] to have your insulin doses adjusted. [facility] Endocrine clinic office Kathie Carrera APRN [facility] Endocrinology Diabetes Management Pager [phone] minutes of this 35 minute visit was spent with the patient in counseling on diabetes and treatment plan, reviewing all glucose and insulin data as well as relevant laboratory results with the patient, and coordination of care on the inpatient unit including nursing and primary team. Zulma Andres RN - 07/14/2017 10:30 AM EST The patient/call center support representative has been provided a list of Home Health Agencies/DME vendors which serve their preferred geographic area. A letter describing our affiliations was reviewed with them and theywere educated about their right to choose where referrals are placed. Patient requests referral to : [facility]ung[facility] ([facility] [place] [facility]-is in [place]) PHONE: [phone] FAX: [phone]. Expected date of discharge: 07/14/17 Referral routed to the Board Liner Operator for matching with agency/vendor and to [...] hours. If BG remains greater than 240, olhtqv33 units (no more than three times) &??call [...] continue to follow Katerin Azul APRN [facility] Endocrinology Diabetes Management Pager [phone] minutes of this 25 minute visit [...] of infiltration/extravasation Discussed plan of care with EARLY CHILDHOOD DIRECTOR and RN. Elevate exrtemity and apply [...] measuring tape and identifier in the photo) CONSTRUCTION SPECIALIST CARING FOR THIS PATIENT WILL CONTINUE TO [...] measuring tape and identifier in the photo) CONSTRUCTION SPECIALIST CARING FOR THIS PATIENT WILL CONTINUE TO [...] regard to both infiltrates addressed by this radio news writer.All of Mr. Hoang's responses were entirely appropriate. Images of infiltrates attached here. Martha Sharp APRN - 07/13/2017 8:01 AM EST Cardiac Surgery Progress Note: ID: [id number] 72 year old male POD#6 s/p CABGx3 [...] discharge. ?? I have met with the patient/call center support representative to discuss discharge planning needs. I have provided the [facility], Office of Care Management letter from the Patient Access Representative pertaining to rehab referrals. I have also provided a letter describing our affiliations within the [facility] and educated them about their right to choose where referrals are placed. ?? I reviewed the different levels of rehab including SNF, swing, acute and LTAC with the patient/call center support representative. ?? The patient/call center support representative has been provided a list of facilities within their preferred geographic area. ?? I have requested that the patient/call center support representative provide at least three choices for referral. ?? The patient/call center support representative have requested referrals to: ?? 1. . ?? 2. [facility] ?? 3. More to be entered ?? Expected date of discharge: 07/14 Note routed to Board Liner Operator who will communicate referrals to facilities [...] hours. If BG remains greater than 240, pejycc54 units (no more than three times) & call for new basal insulin orders. ??If less than 240 after two hours, give no insulin and resume prior schedule. Will continue to follow Katerin Azul APRN [facility] Endocrinology Diabetes Management Pager [phone] minutes of this 35 minute visit was spent with the patient in counseling on diabetes and treatment plan, reviewing all glucose and insulin data as well as relevant laboratory results with the patient, and coordination of care on the inpatient unit including nursing and primary team. Makayla Stevenson APRN - 07/12/2017 9:52 AM EST Cardiac Surgery Progress Note: ID: [id number] 72 year old male POD#5 s/p CABGx3 [...] 07/11/2017 7:18 PM EST Patient arrived from [facility]. VSS. MSI dressing pulled off with [...] hours. If BG remains greater than 240, [id number] units (no more than three times) & [...] AM EST Cardiac Surgery Progress Note: ID: [id number] 72 year old male POD#4 s/p CABGx3 [...] AM EST Cardiac Surgery Progress Note: ID: [id number] 72 year old male POD#3 s/p CABGx3 [...] Gas) No results found for: PHART, PO2ART, QUA0QWU Assessment/Plan: 72 year old male POD#3 s/p [...] Mami Thao - 07/09/2017 6:29 PM EST Mechanical Equipment Sales Engineer Encounter Note Patient Name: Gregory Hoang : [id number] MR#: [id number] Admit Date: 07/05/2017 4:20 PM Hospital Day 4 days Narrative: Patient was sitting in chair, hugging heart pillow, opened his eyes, nodding to come into room Assessment: Patient was sleepy. Intervention and Outcome: Introduced change management manager services and patient reached his hand out in appreciation. Follow-up: Mechanical Equipment Sales Engineer remains available for support. Time in Direct [...] 10:45 AM EST Report given to staff reporter to cover care Maddison Cee PA - 07/09/2017 9:00 AM EST Cardiac Surgery Progress Note: ID: [id number] 72 year old male POD#2 s/p CABGx3 [...] Attending Surgeon on rounds. Signed: STEPHANIE Iqbal [facility] Section of Cardiac Surgery Date: [...] when IABP d/c'ed. Gretchen Carolina, PT Pager [phone] Maddison Cee PA - 07/08/2017 11:27 AM EST Cardiac Surgery Progress Note: ID: [id number] 72 year old male POD#1 s/p CABGx3 [...] Attending Surgeon on rounds. Signed: STEPHANIE Iqbal [facility] Section of Cardiac Surgery Date: [...] in place in R femoral. No hematoma. PROFILING MACHINE OPERATOR- Intact Psych- Anxious Skin- Dry, no peripheral [...] CVCC - code status: Full Code Dinorah Ramírze MD, PGY-1 Cardiology S1 (pgr. [id number]) Daphne [...] intact. IABP in place in R femoral. PROFILING MACHINE OPERATOR- Intact Psych- Anxious Skin- Dry, no peripheral [...] note for details. DAPHNE SHAHID MD Pager [phone] Jet Mckenna MD - 07/05/2017 6:48 PM EST Preliminary Cardiac Catheterization Procedure Note: Procedure(s) performed: Left heart cath, IABP insertion Access: Right NIGHT SHIFT MANAGER-->8fr IABP A time-out was conducted prior [...] effect. Heparin gtt maintained. Pt transferred to crime lab technician. documented in this encounter H&P Notes Daphne Shahid MD - 07/05/2017 6:08 PM EST CARDIOLOGY HISTORY & PHYSICAL EXAM Date of Admission: 07/05/2017 ( Hospital Day 0 days ) Responsible Attending: Daphne Shahid MD PCP: Lovely Vicente MD PCP#: [phone] Patient Active Problem List Diagnosis Code ??? [...] load with heparin drip and transferred to [facility]. While there, continued sob, question of chest pain. Stat TTE showing WMA diffusely and EF around 20%. No significant valvular disease. Taken to the crime lab technician urgently for ongoing STEMI. [facility] Labs: INR 1.0 WBC 5.88 [...] monitor I/O - s/p lasix in the crime lab technician, redose to aim net neg 1L [...] Medicine, PGY-2 Cardiology S1, Team Pager # [phone] CARDIOLOGY ATTENDING NOTE Patient: Gregory Hoang Date [...] amenable for PCI. DAPHNE SHAHID MD Pager [phone] documented in this encounter Miscellaneous Notes Consult Note - Daphne Shahid MD - 07/14/2017 11:46 AM EST Heart Failure Service Inpatient Consult Note Gregory Hoang Date of : 1945 Age: 72 y.o. Today's date: 07/14/17 PCP: Lovely Vicente MD QUALITY IMPROVEMENT COORDINATOR (RN): None Place of Service: [facility] Reason for Consult: Dr. Webber has [...] SETUP performed by Manny Mcknight MD at [facility] OR ??? PRO CABG, ARTERIAL, SINGLE N/A 07/07/2017 @CABG, USING ARTERIAL GRAFT;SINGLE ARTERIAL GRAFT (WRVU 33.75) performed by Yuan Webber MD at [facility] OR ??? PRO CABG, ARTERY-VEIN, TWO N/A 07/07/2017 @CABG, TWO VENOUS GRAFTS & ARTERIAL GRAFT (WRVU 7.93) performed by Yuan Webber MD at [facility] OR ??? PRO COLONOSCOPY, REMV LESN, SNARE 01/16/2014 COLONOSCOPY, POLYPECTOMY, REMOVAL LESION BY SNARE performed by Nohemi Jaimes MD at [facility] ENDOSCOPY ??? PRO ENDOSCOPY W/VIDEO-ASST VEIN HARVEST, CABG Right 07/07/2017 ENDOSCOPIC HARVEST VEIN(S) FOR CABG (WRVU 0.31) performed by Yuan Webber MD at [facility] OR ??? PRO THYROIDECTOMY 03/28/2013 THYROIDECTOMY, TOTAL OR COMPLETE performed by Manny Mcknight MD at [facility] OR Outpt Meds: Current Outpatient [...] following studies: EKG 07/14/17: NSR 75 bpm, DIAMOND BROKER anterior infarct, LAD CXR 07/11/17: FINDINGS: Sternotomy wires. The patient has been extubated, left chest tube removed, and [place]-Suzi catheter removed since the 07/07/2017 study. Atelectasis [...] was discussed with Zehra. Jaden Kelley MD Tile Helper Pager [phone] CARDIOLOGY ATTENDING NOTE Patient: Gregory Hoang Date [...] heart failure clinic. DAPHNE SHAHID MD Pager [phone] Plan of Care - Alden Chavarria PTA [...] home with assist Alden Chavarria PTA Pager: [phone] Inpatient Physical Therapy Problem: Acute Rehab Services [...] sit/sit to supine -- Bed Mobility Goal, [place] Level supervision required -- Bed Mobility Goal, [...] - 3 days -- Gait Training Goal, [place] Level supervision required -- Gait Training Goal, [...] days -- Transfer Training Goal, Activity Type rzt-bq-jlhff/ehixk-vd-pxv;tzw-oi-dytlp/dswhq-qx-tdk;toilet -- Transfer Train Goal, [place] Level supervision required -- Transfer Training Goal, [...] keeping present for 2 days per family. Quality Assurance Practice Manager noted of frustrations, house keeping sent to room. Patient offered showered twice, refused. at bedside, frustrated that shower not complete, informed that patient had refused several times. requesting to see PROFESSOR OF GERMAN, paged sent to Martha, will come to bedside (middle of consult). not willing to wait, Martha notified that family had gone home. Encouraged to come for morning rounds a t 8am. Diabetes team at bedside - insulin adjustments made. Call cabello in reach. Continue to monitor. PLAN MOVING FORWARD: Ambulate, dressing changes BID, Please change drsg at 4am per Martha PROFESSOR OF GERMAN request. INDIVIDUALIZED FALL PREVENTION INTERVENTIONS: Patient-specific fall [...] levels on the lower side, 60ml of Sierra juice given after a FS of 80. [...] Conf 07/13/17 0502 Interdisciplinary Rounds/Family Conf Participants bilingual case manager;dietitian/nutrition services;nursing;occupational therapy;patient;pharmacy;physical therapy;physician Plan of [...] monitoring required during toileting and ADLs]: RN EARLY CHILDHOOD DIRECTOR Surveillance [continuous indirect monitoring]: Barrett Monitor [...] Anticipated Discharge Disposition: home with assist Pager: [phone] CLARISSA SEGAL, PT 07/12/2017 Physical Therapy Rehabilitation [...] to sit/sit to supine Bed Mobility Goal, [place] Level supervision required Bed Mobility Goal, Additional Goal adheres to psternal precautions for transfer Goal: Gait Training Goal Stand Alone Therapy Goal Outcome: Ongoing (Interventions Implemented as Appropriate) 07/12/17 1225 Gait Training Goal Gait Training Goal, Date Established 07/12/17 Gait Training Goal, Time to Achieve 2 - 3 days Gait Training Goal, [place] Level supervision required Gait Training Goal, Assist [...] 3 days Transfer Training Goal, Activity Type sya-ad-gjccm/hpnsv-ss-nwf;tyc-wv-ivpns/hgxjf-gs-cmy;toilet Transfer Train Goal, [place] Level supervision required Transfer Training Goal, Additional Goal adheres to sternal precautions during transfer Consult Note - Octavia Vaughn RN - 07/12/2017 10:50 AM EST [facility] CARDIAC REHABILITATION Gregory Hoang was seen today regarding participation in the outpatient Phase 2 Cardiac Rehabilitation at [facility]. The patient agrees to a [...] IV site, amio to other piv and BERRY PICKER at bedside to help assess, IV removed. [...] staff, he stood and marched in place. [place] weak, wanting to sit back down. Remained [...] Health/Prescription Coverage: Primary Insurance: MEDICARE Secondary Insurance: [place] Prescription Coverage: yes Preferred Pharmacy: [facility] Other: none Primary Care Provider: Lovely Vicente MD [phone] Patient/Caregiver Goals of Treatment:live and get my breath back Potential Needs for Transition of Care: Rehab/SNF: [facility] Home Health: NA DME: TBD Dialysis: na Community Resources: available Transportation: yes Other: none Anticipated Barriers to Discharge/Special Considerations: none Plan: Likely SNF Rehab before home A member of the Care Management team will continue to monitor progress, follow for continuity of care and assist with transition of care planning. ERLIN Weiss Pager: [phone] Consult Note - Katerin Azul RN - [...] management and to provide a review of halfway diabetes care. Diabetes History: Gregory Hoang has [...] potential to d/c gtt and start CF. 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 Monitoring - continue BG tid ac & hs Diet - low fat/low carb diet Exercise - weight-bearing exercise 30 min/day, as tolerated Thank you for allowing us to provide care for your patient W/E coverage, Dr. Jeane Tatum, pager [phone] Katerin Azul APRN Endocrinology Diabetes Management Pager [phone] Plan of Care - Stephanie Godoy, RN [...] MD - 07/07/2017 6:27 PM EST [facility] Operative Note Patient Name: Gregory Hoang : [id number] MR#: [id number] Case Date: 07/07/2017 Surgeon: Surgeon(s) and Role: * Yuan Webber MD - Primary * Michael Drake PA - Physician Polysomnography Technician * Linda Flores PA - Physician Polysomnography Technician Preoperative diagnosis: 3VD Postoperative diagnosis: CAD, severe [...] Operative Note Patient Name: Gregory Hoang : [id number] MR#: [id number] Case Date: 07/07/2017 Surgeon: Surgeon(s) and Role: * Yuan Webber MD - Primary * Michael Drake PA - Physician Polysomnography Technician * Linda Flores PA - Physician Polysomnography Technician Preoperative diagnosis: 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 07/07/17621 Cardiac: ACS (Acute Coronary Syndrome) Problems [...] Hahn, MS3 [employer] [facility] Cardiology S1 (Pager [phone]) Plan of Care - Emelia Ibarra RN [...] [facility] ENDOSCOPY ??? 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 #Home Meds - continue levothyroxine 175mcg - CPAP at night ?? # Routine - DVT PPx: heparin drip - Diet: Healthy heart diet, NPO at midnight for CABG tomorrow - Code Status: FULL - Dispo: CVCC Katty Hahn, M3 [facility] Cardiology S1 (Pager [phone]) Plan of Care - Stephanie Godoy RN - 07/06/2017 5:00 AM EST Problem: Patient Care Overview Goal: Plan of Care Review 07/06/17 1056 Coping/Psychosocial Plan Of Care Reviewed With patient;family [...] in urinal without difficulty. Lasix given in crime lab technician, 1.4 L out at this time. [...] Outcome: Ongoing (Interventions Implemented as Appropriate) 07/06/17 4406 Cardiac: ACS (Acute Coronary Syndrome) Problems Assessed [...] Visit Cardiology Liz Poole PA [facility] er Cardiology Dept [place], [place] [address] (Wo rk) 03/26/2022 Office Visit Cardiology Vitaliy Nobles MD [facility] ER CARDIOLOGY [place], [place] [address] (Wo rk) Scheduled Orders Name [...] procedure are i n the results section. POWDER CORE TESTER SCAN 07/15/2017 12:00 Res ults for this [...] 07/08/2017 4:00 Results f or this ([facility]) AM EST procedure are i n the [...] 07/06/2017 2:10 Results f or this ([facility]) PM EST procedure are i n the [...] TYPE AND SCREEN Routine 07/06/2017 12:00 ([facility]/SHANDA) PM EST APTT STAT 07/06/2017 11:24 Results [...] 07/06/2017 8:10 Results f or this ([facility]) AM EST procedure are i n the [...] 07/05/2017 8:20 Results f or this ([facility]) PM EST procedure are i n the [...] 07/05/2017 4:55 Results f or this ([facility]) PM EST procedure are i n the [...] Teague APRN IMG DX ORDERABLES SCAN DOC: POWDER CORE TESTER (07/15/2017 12:00 AM EST) Narrative 07/15/2017 12:00 [...] Signature POC Glucose 186 65 - 199 [facility] mg/dL [facility] Comment: Supplemental ranges: <140 mg/dL before meals <180 mg/dL all other times of the day Specimen Anatomical Collection Method Collection Time Receive d Time (Source) Location / / Volume Laterality Blood specimen 07/14/2017 11:56 7 (specimen) AM EST 11:56 AM EST Yuan Webber MD POINT OF CARE TEST ORDERABLE S Performing Organization Address City/State/ZIP Code Phon e Number [address] POCT Glucose (07/14/2017 7:52 AM EST) athologist Signature POC Glucose 126 65 - 199 [facility] mg/dL [facility] Comment: Supplemental ranges: <140 mg/dL before meals <180 mg/dL all other times of the day Specimen Anatomical Collection Method Collection Time Receive d Time (Source) Location / / Volume Laterality Blood specimen 07/14/2017 7:52 AM 017 7:52 (specimen) EST AM EST Yuan Webber MD POINT OF CARE TEST ORDERABLE S Performing Organization Address City/State/[place] [address] (ABNORMAL) Prothrombin Time (07/14/2017 [...] Resulting Agency Comment Spec In Lab Makayla [place] STACIE HEMATOLOGY ORDERABLES Performing Organization Address [facility] Code Phon e Number [address] Potassium (07/14/2017 4:46 AM EST) athologist [facility] Potassium 4.3 3.5 - 5.0 [facility] mmol/L [facility] Comment: Please note: ??Patients with [...] EST Resulting Agency Comment Spec [facility] Performing Organization Address City/[facility] Phon e Number [address] POCT Glucose (07/14/2017 4:34 AM EST) athologist [facility] POC Glucose 115 65 - 199 [facility] mg/dL [facility] Comment: Supplemental ranges: <140 mg/dL before meals <180 mg/dL all other times of the day Specimen Anatomical Collection Method Collection Time Receive d Time (Source) Location / / Volume Laterality Blood specimen 07/14/2017 4:34 AM 017 4:34 (specimen) EST AM EST Yuan Webber MD POINT OF CARE TEST ORDERABLE S Performing Organization Address City/State/[place] [address] POCT Glucose (07/13/2017 11:33 PM EST) athologist Signature POC Glucose 132 65 - 199 [place] mg/dL [facility] Comment: Supplemental ranges: <140 mg/dL before meals <180 mg/dL all other times of the day Specimen Anatomical Collection Method Collection Time Receive d Time (Source) Location / / Volume Laterality Blood specimen 07/13/2017 11:33 7 (specimen) PM EST 11:33 PM EST Yuan Webber MD POINT OF CARE TEST ORDERABLE S Performing Organization Address City/State/[place] [address] POCT Glucose (07/13/2017 9:25 PM EST) athologist Signature POC Glucose 121 65 - 199 [place] mg/dL [facility] Comment: Supplemental ranges: <140 mg/dL before meals <180 mg/dL all other times of the day Specimen Anatomical Collection Method Collection Time Receive d Time (Source) Location / / Volume Laterality Blood specimen 07/13/2017 9:25 PM 017 9:25 (specimen) EST PM EST Yuan Webber MD POINT OF CARE TEST ORDERABLE S Performing Organization Address City/State/[place] [address] POCT Glucose (07/13/2017 4:55 PM EST) athologist Signature POC Glucose 79 65 - 199 [place] mg/dL [facility] Comment: Supplemental ranges: <140 mg/dL before meals <180 mg/dL all other times of the day Specimen Anatomical Collection Method Collection Time Receive d Time (Source) Location / / Volume Laterality Blood specimen 07/13/2017 4:55 PM 017 4:55 (specimen) EST PM EST Yuan Webber MD POINT OF CARE TEST ORDERABLE S Performing Organization Address City/[facility]/[place] [address] POCT Glucose (07/13/2017 11:16 AM EST) athologist Signature POC Glucose 163 65 - 199 [facility] mg/dL [facility] Comment: Supplemental ranges: <140 mg/dL before meals <180 mg/dL all other times of the day Specimen Anatomical Collection Method Collection Time Receive d Time (Source) Location / / Volume Laterality Blood specimen 07/13/2017 11:16 7 (specimen) AM EST 11:16 AM EST Yuan Webber MD POINT OF CARE TEST ORDERABLE S Performing Organization Address City/[facility]/[place] [address] POCT Glucose (07/13/2017 8:07 AM EST) athologist Signature POC Glucose 96 65 - 199 [facility] mg/dL [facility] Comment: Supplemental ranges: <140 mg/dL before meals <180 mg/dL all other times of the day Specimen Anatomical Collection Method Collection Time Receive d Time (Source) Location / / Volume Laterality Blood specimen 07/13/2017 8:07 AM 017 8:07 (specimen) EST AM EST Yuan Webber MD POINT OF CARE TEST ORDERABLE S Performing Organization Address City/State/[place] [address] (ABNORMAL) Prothrombin Time (07/13/2017 [...] Agency Comment Spec In Lab Makayla Wilson [employer] HEMATOLOGY ORDERABLES Performing Organization Address City/State/[place] [address] (ABNORMAL) Basic Metabolic Panel (non-fasting) (07/13/2017 4:26 AM EST) P athologist Signature Glucose Lvl 95 65 - 199 [facility] mg/dL [facility] Comment: Diabetes: >=200 mg/dL plus symp toms BUN 25 (H) 10 - 20 mg/dL [facility] Creatinine 1.19 0.80 - 1.50 mg/dL [facility] Sodium 143 135 - 145 mmol/L [facility] Potassium 3.7 3.5 - 5.0 mmol/L [facility] [...] 15 mmol/L [facility] Calcium 7.7 (L) 8.5 - 10.5 mg/dL [facility] Estimated GFR 60 >=60 [facility] Comment: The reported eGFR should be multiplied b y 1.2 for patients. The MDRD is not an appropriate measure o f renal function for patients with body mass extremes or in patients with acute kidney failure. http://WP Fail-Safe.MyFreightWorld/DHnkdep http://WP Fail-Safe.com/DHMCnkf Specimen Anatomical Collection Method Collection Time Receive d Time (Source) Location / / Volume Laterality Blood specimen 07/13/2017 4:26 AM 017 4:46 (specimen) EST AM EST Resulting Agency Comment Spec In Lab Makayla Wilson APRN CHEMISTRY ORDERABLES Performing Organization Address City/State/ZIP Code Phon e Number [address] POCT Glucose (07/13/2017 3:52 AM EST) athologist Signature POC Glucose 93 65 - 199 [facility] Comment: Supplemental ranges: <140 mg/dL before meals <180 mg/dL all other times of the day Specimen Anatomical Collection Method Collection Time Receive d Time (Source) Location / / Volume Laterality Blood specimen 07/13/2017 3:52 AM 017 3:52 (specimen) EST AM EST Yuan Webber MD POINT OF CARE TEST ORDERABLE S Performing Organization Address City/[facility]/ZIP Code Phon e Number [address] POCT Glucose (07/13/2017 12:21 AM EST) athologist Signature POC Glucose 80 65 - 199 [facility] Comment: Supplemental ranges: <140 mg/dL before meals <180 mg/dL all other times of the day Specimen Anatomical Collection Method Collection Time Receive d Time (Source) Location / / Volume Laterality Blood specimen 07/13/2017 12:21 7 (specimen) AM EST 12:21 AM EST Yuan Webber MD POINT OF CARE TEST ORDERABLE S Performing Organization Address City/[facility]/ZIP Code Phon e Number [address] POCT Glucose (07/12/2017 8:22 PM EST) athologist Signature POC Glucose 119 65 - 199 [place] mg/dL [facility] Comment: Supplemental ranges: <140 mg/dL before meals <180 mg/dL all other times of the day Specimen Anatomical Collection Method Collection Time Receive d Time (Source) Location / / Volume Laterality Blood specimen 07/12/2017 8:22 PM 017 8:22 (specimen) EST PM EST Yuan Webber MD POINT OF CARE TEST ORDERABLE S Performing Organization Address City/State/ZIP Code Phon e Number [address] POCT Glucose (07/12/2017 4:02 PM EST) athologist Signature POC Glucose 114 65 - 199 [facility] SU mg/dL [facility] Comment: Supplemental ranges: <140 mg/dL before meals <180 mg/dL all other times of the day Specimen Anatomical Collection Method Collection Time Receive d Time (Source) Location / / Volume Laterality Blood specimen 07/12/2017 4:02 PM 017 4:02 (specimen) EST PM EST Yuan Webber MD POINT OF CARE TEST ORDERABLE S Performing Organization Address City/State/ZIP Code Phon e Number [address] POCT Glucose (07/12/2017 11:28 AM EST) athologist Signature POC Glucose 164 65 - 199 [facility] SU mg/dL [facility] Comment: Supplemental ranges: <140 mg/dL before meals <180 mg/dL all other times of the day Specimen Anatomical Collection Method Collection Time Receive d Time (Source) Location / / Volume Laterality Blood specimen 07/12/2017 11:28 7 (specimen) AM EST 11:28 AM EST Yuan Webber MD POINT OF CARE TEST ORDERABLE S Performing Organization Address City/State/ZIP Code Phon e Number [address] POCT Glucose (07/12/2017 7:34 AM EST) athologist Signature POC Glucose 109 65 - 199 [place] mg/dL [facility] Comment: Supplemental ranges: <140 mg/dL before meals <180 mg/dL all other times of the day Specimen Anatomical Collection Method Collection Time Receive d Time (Source) Location / / Volume Laterality Blood specimen 07/12/2017 7:34 AM 017 7:34 (specimen) EST AM EST Yuan Webber MD POINT OF CARE TEST ORDERABLE S Performing Organization Address City/State/[place] [address] (ABNORMAL) Basic Metabolic Panel (non-fasting) (07/12/2017 4:11 AM EST) P athologist Signature Glucose Lvl 92 65 - 199 [facility] mg/dL [facility] Comment: Diabetes: >=200 mg/dL plus symp toms BUN 31 (H) 10 - 20 mg/dL [facility] Creatinine 1.23 0.80 - 1.50 mg/dL [facility] Sodium 145 135 - 145 mmol/L [facility] Potassium Not Perf 3.5 - 5.0 mmol/L [facility] Comment: Duplicate order Please [...] mg/dL [facility] Estimated GFR 58 (L) >=60 [facility] Comment: The reported eGFR should be multiplied b y 1.2 for patients. The MDRD is not an appropriate measure o f renal function for patients with body mass extremes or in patients with acute kidney failure. http://WP Fail-Safe.MyFreightWorld/DHnkdep http://J. [place]/DHMCnkf Specimen Anatomical Collection Method Collection Time Receive d Time (Source) Location / / Volume Laterality Blood specimen 07/12/2017 4:11 AM 017 8:57 (specimen) EST AM EST Resulting Agency Comment Spec In Lab [facility] ORDERABLES Performing Organization Address [facility] [place] [address] (ABNORMAL) Prothrombin Time (07/12/2017 [...] Resulting Agency Comment Spec In Lab Makayla [facility] HEMATOLOGY ORDERABLES Performing Organization Address City/[facility] [place] [address] Potassium (07/12/2017 4:11 AM EST) P athologist Signature Potassium 3.8 3.5 - 5.0 [facility] mmol/L [facility] Comment: Please note: ??Patients with [...] Wilson APRN CHEMISTRY ORDERABLES Performing Organization Address City/[facility]/ZIP Code Phon e Number [address] POCT Glucose (07/12/2017 4:10 AM EST) athologist Signature POC Glucose 90 65 - 199 [place] mg/dL [facility] Comment: Supplemental ranges: <140 mg/dL before meals <180 mg/dL all other times of the day Specimen Anatomical Collection Method Collection Time Receive d Time (Source) Location / / Volume Laterality Blood specimen 07/12/2017 4:10 AM 017 4:10 (specimen) EST AM EST Yuan Webber MD POINT OF CARE TEST ORDERABLE S Performing Organization Address City/[facility]/ZIP Code Phon e Number [address] POCT Glucose (07/11/2017 11:57 PM EST) athologist Signature POC Glucose 98 65 - 199 [place] mg/dL [facility] Comment: Supplemental ranges: <140 mg/dL before meals <180 mg/dL all other times of the day Specimen Anatomical Collection Method Collection Time Receive d Time (Source) Location / / Volume Laterality Blood specimen 07/11/2017 11:57 7 (specimen) PM EST 11:57 PM EST Yuan Webber MD POINT OF CARE TEST ORDERABLE S Performing Organization Address City/[facility]/ZIP Code Phon e Number [address] POCT Glucose (07/11/2017 8:32 PM EST) athologist Signature POC Glucose 146 65 - 199 [facility] SU mg/dL [facility] Comment: Supplemental ranges: <140 mg/dL before meals <180 mg/dL all other times of the day Specimen Anatomical Collection Method Collection Time Receive d Time (Source) Location / / Volume Laterality Blood specimen 07/11/2017 8:32 PM 017 8:32 (specimen) EST PM EST Yuan Webber MD POINT OF CARE TEST ORDERABLE S Performing Organization Address City/State/[place] [address] XR Chest PA & [...] e xtubated, left chest tube removed, and [place]-Suzi catheter removed since the study. Atelectasis at [...] e xtubated, left chest tube removed, and [place]-Suzi catheter removed since the study. Atelectasis at [...] (H) 65 - 199 [place] mg/dL [facility] Comment: Supplemental ranges: <140 mg/dL before meals <180 mg/dL all other times of the day Specimen Anatomical Collection Method Collection Time Receive d Time (Source) Location / / Volume Laterality Blood specimen 07/11/2017 4:05 PM 017 4:05 (specimen) EST PM EST Yuan Webber MD POINT OF CARE TEST ORDERABLE S Performing Organization Address City/State/[place] [address] POCT Glucose (07/11/2017 11:55 AM EST) athologist Signature POC Glucose 176 65 - 199 [place] mg/dL [facility] Comment: Supplemental ranges: <140 mg/dL before meals <180 mg/dL all other times of the day Specimen Anatomical Collection Method Collection Time Receive d Time (Source) Location / / Volume Laterality Blood specimen 07/11/2017 11:55 7 (specimen) AM EST 11:55 AM EST Yuan Webber MD POINT OF CARE TEST ORDERABLE S Performing Organization Address City/State/[place] [address] POCT Glucose (07/11/2017 7:53 AM EST) athologist Signature POC Glucose 189 65 - 199 [place] mg/dL [facility] Comment: Supplemental ranges: <140 mg/dL before meals <180 mg/dL all other times of the day Specimen Anatomical Collection Method Collection Time Receive d Time (Source) Location / / Volume Laterality Blood specimen 07/11/2017 7:53 AM 017 7:53 (specimen) EST AM EST Yuan Webber MD POINT OF CARE TEST ORDERABLE S Performing Organization Address City/State/ZIP Code Phon e Number [address] POCT Glucose (07/11/2017 4:22 AM EST) athologist Signature POC Glucose 151 65 - 199 [place] mg/dL [facility] Comment: Supplemental ranges: <140 mg/dL before meals <180 mg/dL all other times of the day Specimen Anatomical Collection Method Collection Time Receive d Time (Source) Location / / Volume Laterality Blood specimen 07/11/2017 4:22 AM 017 4:22 (specimen) EST AM EST Yuan Webber MD POINT OF CARE TEST ORDERABLE S Performing Organization Address City/[facility]/[place] [address] Potassium (07/11/2017 2:20 AM EST) P athologist Signature Potassium 4.5 3.5 - 5.0 [facility] mmol/L [facility] Comment: Please note: ??Patients with [...] Webber MD CHEMISTRY ORDERABLES Performing Organization Address City/[facility]/ZIP Code Phon e Number [address] POCT Glucose (07/11/2017 12:17 AM EST) P athologist Signature POC Glucose 162 65 - 199 [facility] Comment: Supplemental ranges: <140 mg/dL before meals <180 mg/dL all other times of the day Specimen Anatomical Collection Method Collection Time Receive d Time (Source) Location / / Volume Laterality Blood specimen 07/11/2017 12:17 7 (specimen) AM EST 12:17 AM EST Yuan Webber MD POINT OF CARE TEST ORDERABLE S Performing Organization Address City/[facility]/[place] [address] POCT Glucose (07/10/2017 8:47 PM EST) athologist Signature POC Glucose 191 65 - 199 [place] mg/dL [facility] Comment: Supplemental ranges: <140 mg/dL before meals <180 mg/dL all other times of the day Specimen Anatomical Collection Method Collection Time Receive d Time (Source) Location / / Volume Laterality Blood specimen 07/10/2017 8:47 PM 017 8:47 (specimen) EST PM EST Yuan Webber MD POINT OF CARE TEST ORDERABLE S Performing Organization Address City/State/ZIP Code Phon e Number [address] POCT Glucose (07/10/2017 4:06 PM EST) athologist Signature POC Glucose 131 65 - 199 [place] mg/dL [facility] Comment: Supplemental ranges: <140 mg/dL before meals <180 mg/dL all other times of the day Specimen Anatomical Collection Method Collection Time Receive d Time (Source) Location / / Volume Laterality Blood specimen 07/10/2017 4:06 PM 017 4:06 (specimen) EST PM EST Yuan Webber MD POINT OF CARE TEST ORDERABLE S Performing Organization Address City/State/ZIP Code Phon e Number [address] POCT Glucose (07/10/2017 3:08 PM EST) athologist Signature POC Glucose 151 65 - 199 [place] mg/dL [facility] Comment: Supplemental ranges: <140 mg/dL before meals <180 mg/dL all other times of the day Specimen Anatomical Collection Method Collection Time Receive d Time (Source) Location / / Volume Laterality Blood specimen 07/10/2017 3:08 PM 017 3:08 (specimen) EST PM EST Yuan Webber MD POINT OF CARE TEST ORDERABLE S Performing Organization Address City/State/ZIP Code Phon e Number [address] POCT Glucose (07/10/2017 2:25 PM EST) athologist Signature POC Glucose 146 65 - 199 [place] mg/dL [facility] Comment: Supplemental ranges: <140 mg/dL before meals <180 mg/dL all other times of the day Specimen Anatomical Collection Method Collection Time Receive d Time (Source) Location / / Volume Laterality Blood specimen 07/10/2017 2:25 PM 017 2:25 (specimen) EST PM EST Yuan Webber MD POINT OF CARE TEST ORDERABLE S Performing Organization Address City/State/ZIP Code Phon e Number [address] POCT Glucose (07/10/2017 1:23 PM EST) athologist Signature POC Glucose 166 65 - 199 [place] mg/dL [facility] Comment: Supplemental ranges: <140 mg/dL before meals <180 mg/dL all other times of the day Specimen Anatomical Collection Method Collection Time Receive d Time (Source) Location / / Volume Laterality Blood specimen 07/10/2017 1:23 PM 017 1:23 (specimen) EST PM EST Yuan Webber MD POINT OF CARE TEST ORDERABLE S Performing Organization Address City/State/ZIP Code Phon e Number [address] POCT Glucose (07/10/2017 11:52 AM EST) athologist Signature POC Glucose 157 65 - 199 [place] mg/dL [facility] Comment: Supplemental ranges: <140 mg/dL before meals <180 mg/dL all other times of the day Specimen Anatomical Collection Method Collection Time Receive d Time (Source) Location / / Volume Laterality Blood specimen 07/10/2017 11:52 7 (specimen) AM EST 11:52 AM EST Yuan Webber MD POINT OF CARE TEST ORDERABLE S Performing Organization Address City/State/ZIP Code Phon e Number [address] POCT Glucose (07/10/2017 11:01 AM EST) athologist Signature POC Glucose 158 65 - 199 [place] mg/dL [facility] Comment: Supplemental ranges: <140 mg/dL before meals <180 mg/dL all other times of the day Specimen Anatomical Collection Method Collection Time Receive d Time (Source) Location / / Volume Laterality Blood specimen 07/10/2017 11:01 7 (specimen) AM EST 11:01 AM EST Yuan Webber MD POINT OF CARE TEST ORDERABLE S Performing Organization Address City/State/ZIP Code Phon e Number [address] POCT Glucose (07/10/2017 9:54 AM EST) P athologist Signature POC Glucose 160 65 - 199 [place] mg/dL [facility] Comment: Supplemental ranges: <140 mg/dL before meals <180 mg/dL all other times of the day Specimen Anatomical Collection Method Collection Time Receive d Time (Source) Location / / Volume Laterality Blood specimen 07/10/2017 9:54 AM 017 9:54 (specimen) EST AM EST Yuan Webber MD POINT OF CARE TEST ORDERABLE S Performing Organization Address City/State/ZIP Code Phon e Number [address] POCT Glucose (07/10/2017 8:58 AM EST) P athologist Signature POC Glucose 183 65 - 199 [place] mg/dL [facility] Comment: Supplemental ranges: <140 mg/dL before meals <180 mg/dL all other times of the day Specimen Anatomical Collection Method Collection Time Receive d Time (Source) Location / / Volume Laterality Blood specimen 07/10/2017 8:58 AM 017 8:58 (specimen) EST AM EST Yuan Webber MD POINT OF CARE TEST ORDERABLE S Performing Organization Address City/State/ZIP Code Phon e Number [address] POCT Glucose (07/10/2017 8:01 AM EST) P athologist Signature POC Glucose 173 65 - 199 [place] mg/dL [facility] Comment: Supplemental ranges: <140 mg/dL before meals <180 mg/dL all other times of the day Specimen Anatomical Collection Method Collection Time Receive d Time (Source) Location / / Volume Laterality Blood specimen 07/10/2017 8:01 AM 017 8:01 (specimen) EST AM EST Yuan Webber MD POINT OF CARE TEST ORDERABLE S Performing Organization Address City/[facility]/ZIP Code Phon e Number [address] POCT Glucose (07/10/2017 7:05 AM EST) P athologist Signature POC Glucose 166 65 - 199 [facility] mg[facility]dL [facility] Comment: Supplemental ranges: <140 mg/dL before meals <180 mg/dL all other times of the day Specimen Anatomical Collection Method Collection Time Receive d Time (Source) Location / / Volume Laterality Blood specimen 07/10/2017 7:05 AM 017 7:05 (specimen) EST AM EST Yuan Webber MD POINT OF CARE TEST ORDERABLE S Performing Organization Address City/[facility]/ZIP Code Phon e Number [address] POCT Glucose (07/10/2017 6:00 AM EST) athologist Signature POC Glucose 162 65 - 199 [facility] mg/dL [facility] Comment: Supplemental ranges: <140 mg/dL before meals <180 mg/dL all other times of the day Specimen Anatomical Collection Method Collection Time Receive d Time (Source) Location / / Volume Laterality Blood specimen 07/10/2017 6:00 AM 017 6:00 (specimen) EST AM EST Yuan Webber MD POINT OF CARE TEST ORDERABLE S Performing Organization Address City/State/ZIP Code Phon e Number [address] (ABNORMAL) Differential, Automated (07/10/2017 4:28 AM EST) [facility] gist Method Time Signature Neutrophils % 87.9 % [facility] Neutr Abs (ANC) 10.70 (H) 1.70 - [facility] 6.10 [facility] x10(3)/[facility] L LABORATORY Lymphocytes % 3.9 % [facility] Lymphocytes Abs 0.5 (L) 0.9 - 3.2 [facility] x10(3)/[facility] LABORATORY Monocytes % 7.0 % [facility] Monocyte Abs 0.8 0.3 - 0.9 [facility] x10(3)/[facility] LABORATORY Eosinophils % 0.3 % [facility] Eosinophils Abs 0.0 0.0 - 0.4 [facility] x10(3)/[facility] LABORATORY Basophils % 0.2 % [facility] Basophils Abs 0.0 0.0 - 0.1 [facility] x10(3)/[facility] LABORATORY Immature Gran % 0.70 % [facility] [...] Abs 0.08 (H) 0.00 - 0.04 x10(3)/[facility] LABORATORY Specimen Anatomical Collection Method Collection Time Receive d Time (Source) Location / / Volume Laterality Blood specimen 07/10/2017 4:28 AM 017 4:36 (specimen) EST AM EST Resulting Agency Comment Spec In Lab Yuan Webber MD HEMATOLOGY ORDERABLES Performing Organization Address City/State/[place] [address] (ABNORMAL) Hemogram (07/10/2017 4:28 AM EST) Analysis Performed At Patho logist Time Signature WBC 12.2 (H) 4.0 - 9.5 [facility] x10(3)/[facility] LABORATORY RBC 3.31 (L) 4.58 - [facility] 5.[address] [facility] x10(6)/[facility] LABORATORY Hemoglobin 9.8 (L) 13.7 - [place] 16.5 gm/dL [facility] Hematocrit 30.0 (L) 40.5 - [place] 48.5 % [facility] MCV 90.6 82.9 - [facility] 93.1 [facility] LABORATORY MCH 29.6 27.5 - [place] 32.1 pg [facility] MCHC 32.7 32.0 - [place] 35.7 gm/dL [facility] Platelets 135 (L) 145 - 357 [facility] x10(3)/[facility] LABORATORY RDWSD 50.8 (H) 36.0 - [facility] 45.0 [facility] LABORATORY RDWCV 15.4 (H) 11.4 - [facility] 13.8 % [facility] MPV 10.0 7.6 - 12.9 [facility] LAB[facility]ORY nRBC % Auto 0.0 % [facility] nRBC Abs Auto 0.000 0.000 - [facility] [address] [facility] x10(3)/[facility] LABORATORY Specimen Anatomical Collection Method Collection Time Receive d Time (Source) Location / / Volume Laterality Blood specimen 07/10/2017 4:28 AM 017 4:36 (specimen) EST AM EST Resulting Agency Comment Spec In Lab Yuan Webber MD HEMATOLOGY ORDERABLES Performing Organization Address City/State/[place] [address] (ABNORMAL) Basic Metabolic Panel (non-fasting) (07/10/2017 4:28 AM EST) P athologist Signature Glucose Lvl 178 65 - 199 [facility] mg/dL [facility] Comment: Diabetes: >=200 mg/dL plus symp toms BUN 20 10 - 20 mg/dL [facility] Creatinine 1.19 0.80 - 1.50 [...] Anion Gap 15 5 - 15 mmol/L [facility] Calcium 7.4 (L) 8.5 - 10.5 mg/dL [facility] Estimated GFR 60 >=60 [facility] Comment: The reported eGFR should be multiplied b y 1.2 for patients. The MDRD is not an appropriate measure o f renal function for patients with body mass extremes or in patients with acute kidney failure. [email or web address] Specimen Anatomical Collection Method Collection Time Receive d Time (Source) Location / / Volume Laterality Blood specimen 07/10/2017 4:28 AM 017 4:36 (specimen) EST AM EST Resulting Agency Comment Spec In Lab Yuan Webber MD CHEMISTRY ORDERABLES Performing Organization Address City/[facility]/ZIP Code Phon e Number [address] POCT Glucose (07/10/2017 4:26 AM EST) athologist Signature POC Glucose 176 65 - 199 [facility] mg/dL [facility] Comment: Supplemental ranges: <140 mg/dL before meals <180 mg/dL all other times of the day Specimen Anatomical Collection Method Collection Time Receive d Time (Source) Location / / Volume Laterality Blood specimen 07/10/2017 4:26 AM 017 4:26 (specimen) EST AM EST Yuan Webber MD POINT OF CARE TEST ORDERABLE S Performing Organization Address City/[facility]/[place] [address] (ABNORMAL) POCT Glucose (07/10/2017 3:06 AM EST) athologist Signature POC Glucose 204 (H) 65 - 199 [facility] SU mg/dL [facility] Comment: Supplemental ranges: <140 mg/dL before meals <180 mg/dL all other times of the day Specimen Anatomical Collection Method Collection Time Receive d Time (Source) Location / / Volume Laterality Blood specimen 07/10/2017 3:06 AM 017 3:06 (specimen) EST AM EST Yuan Webber MD POINT OF CARE TEST ORDERABLE S Performing Organization Address City/State/[place] [address] (ABNORMAL) POCT Glucose (07/10/2017 2:10 AM EST) athologist Signature POC Glucose 203 (H) 65 - 199 [facility] Comment: Supplemental ranges: <140 mg/dL before meals <180 mg/dL all other times of the day Specimen Anatomical Collection Method Collection Time Receive d Time (Source) Location / / Volume Laterality Blood specimen 07/10/2017 2:10 AM 017 2:10 (specimen) EST AM EST Yuan Webber MD POINT OF CARE TEST ORDERABLE S Performing Organization Address City/State/[place] [address] POCT Glucose (07/10/2017 1:09 AM EST) athologist Signature POC Glucose 196 65 - 199 [facility] Comment: Supplemental ranges: <140 mg/dL before meals <180 mg/dL all other times of the day Specimen Anatomical Collection Method Collection Time Receive d Time (Source) Location / / Volume Laterality Blood specimen 07/10/2017 1:09 AM 017 1:09 (specimen) EST AM EST Yuan Webber MD POINT OF CARE TEST ORDERABLE S Performing Organization Address City/State/[place] [address] POCT Glucose (07/10/2017 12:10 AM EST) athologist Signature POC Glucose 173 65 - 199 [place] mg/dL [facility] Comment: Supplemental ranges: <140 mg/dL before meals <180 mg/dL all other times of the day Specimen Anatomical Collection Method Collection Time Receive d Time (Source) Location / / Volume Laterality Blood specimen 07/10/2017 12:10 7 (specimen) AM EST 12:10 AM EST Yuan Webber MD POINT OF CARE TEST ORDERABLE S Performing Organization Address City/State/ZIP Code Phon e Number [address] POCT Glucose (07/09/2017 11:01 PM EST) athologist Signature POC Glucose 140 65 - 199 [place] mg/dL [facility] Comment: Supplemental ranges: <140 mg/dL before meals <180 mg/dL all other times of the day Specimen Anatomical Collection Method Collection Time Receive d Time (Source) Location / / Volume Laterality Blood specimen 07/09/2017 11:01 7 (specimen) PM EST 11:01 PM EST Yuan Webber MD POINT OF CARE TEST ORDERABLE S Performing Organization Address City/State/ZIP Code Phon e Number [address] POCT Glucose (07/09/2017 10:05 PM EST) athologist Signature POC Glucose 144 65 - 199 [place] mg/dL [facility] Comment: Supplemental ranges: <140 mg/dL before meals <180 mg/dL all other times of the day Specimen Anatomical Collection Method Collection Time Receive d Time (Source) Location / / Volume Laterality Blood specimen 07/09/2017 10:05 7 (specimen) PM EST 10:05 PM EST Yuan Webber MD POINT OF CARE TEST ORDERABLE S Performing Organization Address City/State/ZIP Code Phon e Number [address] POCT Glucose (07/09/2017 9:31 PM EST) athologist Signature POC Glucose 121 65 - 199 [place] mg/dL [facility] Comment: Supplemental ranges: <140 mg/dL before meals <180 mg/dL all other times of the day Specimen Anatomical Collection Method Collection Time Receive d Time (Source) Location / / Volume Laterality Blood specimen 07/09/2017 9:31 PM 017 9:31 (specimen) EST PM EST Yuan Webber MD POINT OF CARE TEST ORDERABLE S Performing Organization Address City/State/ZIP Code Phon e Number [address] POCT Glucose (07/09/2017 9:03 PM EST) athologist Signature POC Glucose 98 65 - 199 [place] mg/dL [facility] Comment: Supplemental ranges: <140 mg/dL before meals <180 mg/dL all other times of the day Specimen Anatomical Collection Method Collection Time Receive d Time (Source) Location / / Volume Laterality Blood specimen 07/09/2017 9:03 PM 017 9:03 (specimen) EST PM EST Yuan Webber MD POINT OF CARE TEST ORDERABLE S Performing Organization Address City/State/ZIP Code Phon e Number [address] POCT Glucose (07/09/2017 8:09 PM EST) athologist Signature POC Glucose 117 65 - 199 [facility] SU mg/dL [facility] Comment: Supplemental ranges: <140 mg/dL before meals <180 mg/dL all other times of the day Specimen Anatomical Collection Method Collection Time Receive d Time (Source) Location / / Volume Laterality Blood specimen 07/09/2017 8:09 PM 017 8:09 (specimen) EST PM EST Yuan Webber MD POINT OF CARE TEST ORDERABLE S Performing Organization Address City/State/ZIP Code Phon e Number [address] POCT Glucose (07/09/2017 5:40 PM EST) athologist Signature POC Glucose 155 65 - 199 [place] mg/dL [facility] Comment: Supplemental ranges: <140 mg/dL before meals <180 mg/dL all other times of the day Specimen Anatomical Collection Method Collection Time Receive d Time (Source) Location / / Volume Laterality Blood specimen 07/09/2017 5:40 PM 017 5:40 (specimen) EST PM EST Yuan Webber MD POINT OF CARE TEST ORDERABLE S Performing Organization Address City/State/ZIP Code Phon e Number [address] POCT Glucose (07/09/2017 4:24 PM EST) athologist Signature POC Glucose 164 65 - 199 [facility] SU mg/dL [facility] Comment: Supplemental ranges: <140 mg/dL before meals <180 mg/dL all other times of the day Specimen Anatomical Collection Method Collection Time Receive d Time (Source) Location / / Volume Laterality Blood specimen 07/09/2017 4:24 PM 017 4:24 (specimen) EST PM EST Yuan Webber MD POINT OF CARE TEST ORDERABLE S Performing Organization Address City/State/ZIP Code Phon e Number [address] POCT Glucose (07/09/2017 3:19 PM EST) athologist Signature POC Glucose 166 65 - 199 [place] mg/dL [facility] Comment: Supplemental ranges: <140 mg/dL before meals <180 mg/dL all other times of the day Specimen Anatomical Collection Method Collection Time Receive d Time (Source) Location / / Volume Laterality Blood specimen 07/09/2017 3:19 PM 017 3:19 (specimen) EST PM EST Yuan Webber MD POINT OF CARE TEST ORDERABLE S Performing Organization Address City/State/ZIP Code Phon e Number [address] POCT Glucose (07/09/2017 2:26 PM EST) athologist Signature POC Glucose 179 65 - 199 [facility] SU mg/dL [facility] Comment: Supplemental ranges: <140 mg/dL before meals <180 mg/dL all other times of the day Specimen Anatomical Collection Method Collection Time Receive d Time (Source) Location / / Volume Laterality Blood specimen 07/09/2017 2:26 PM 017 2:26 (specimen) EST PM EST Yuan Webber MD POINT OF CARE TEST ORDERABLE S Performing Organization Address City/State/[place] [address] (ABNORMAL) POCT Glucose (07/09/2017 1:29 PM EST) P athologist Signature POC Glucose 210 (H) 65 - 199 [place] mg/dL [facility] Comment: Supplemental ranges: <140 mg/dL before meals <180 mg/dL all other times of the day Specimen Anatomical Collection Method Collection Time Receive d Time (Source) Location / / Volume Laterality Blood specimen 07/09/2017 1:29 PM 017 1:29 (specimen) EST PM EST Yuan Webber MD POINT OF CARE TEST ORDERABLE S Performing Organization Address City/State/[place] [address] POCT Glucose (07/09/2017 12:20 PM EST) P athologist Signature POC Glucose 172 65 - 199 [place] mg/dL [facility] Comment: Supplemental ranges: <140 mg/dL before meals <180 mg/dL all other times of the day Specimen Anatomical Collection Method Collection Time Receive d Time (Source) Location / / Volume Laterality Blood specimen 07/09/2017 12:20 7 (specimen) PM EST 12:20 PM EST Yuan Webber MD POINT OF CARE TEST ORDERABLE S Performing Organization Address City/State/[place] [address] POCT Glucose (07/09/2017 11:24 AM EST) P athologist Signature POC Glucose 156 65 - 199 [place] mg/dL [facility] Comment: Supplemental ranges: <140 mg/dL before meals <180 mg/dL all other times of the day Specimen Anatomical Collection Method Collection Time Receive d Time (Source) Location / / Volume Laterality Blood specimen 07/09/2017 11:24 7 (specimen) AM EST 11:24 AM EST Yuan Webber MD POINT OF CARE TEST ORDERABLE S Performing Organization Address City/State/ZIP Code Phon e Number [address] POCT Glucose (07/09/2017 11:11 AM EST) P athologist Signature POC Glucose 172 65 - 199 [place] mg/dL [facility] Comment: Supplemental ranges: <140 mg/dL before meals <180 mg/dL all other times of the day Specimen Anatomical Collection Method Collection Time Receive d Time (Source) Location / / Volume Laterality Blood specimen 07/09/2017 11:11 7 (specimen) AM EST 11:11 AM EST Yuan Webber MD POINT OF CARE TEST ORDERABLE S Performing Organization Address City/State/ZIP Code Phon e Number [address] POCT Glucose (07/09/2017 10:08 AM EST) athologist Signature POC Glucose 176 65 - 199 [place] mg/dL [facility] Comment: Supplemental ranges: <140 mg/dL before meals <180 mg/dL all other times of the day Specimen Anatomical Collection Method Collection Time Receive d Time (Source) Location / / Volume Laterality Blood specimen 07/09/2017 10:08 7 (specimen) AM EST 10:08 AM EST Yuan Webber MD POINT OF CARE TEST ORDERABLE S Performing Organization Address City/State/ZIP Code Phon e Number [address] POCT Glucose (07/09/2017 8:02 AM EST) athologist Signature POC Glucose 178 65 - 199 [facility] SU mg/dL [facility] Comment: Supplemental ranges: <140 mg/dL before meals <180 mg/dL all other times of the day Specimen Anatomical Collection Method Collection Time Receive d Time (Source) Location / / Volume Laterality Blood specimen 07/09/2017 8:02 AM 017 8:02 (specimen) EST AM EST Yuan Webber MD POINT OF CARE TEST ORDERABLE S Performing Organization Address City/State/[place] [address] (ABNORMAL) BLOOD GAS 2 ARTERIAL (07/09/2017 5:37 AM EST) Analysis Performed At Patho logist Time Signature pH Art 7.36 7.35 - [facility] 7.45 [facility] pCO2 Art 38 35 - 45 [facility] mmHg [facility] pO2 Art 79 (L) 85 - 104 [facility] LABORATORY HCO3 Art 20.9 20.0 - [facility] 26.[address] [facility] mmol/L [facility] BE Art -4.6 (L) -3.0 - 3.0 [facility] mmol/L [facility] Hgb Blood Gas 10.5 (L) 13.7 - [facility] 16.5 gm/dL [facility] O2HB Art 93.8 (L) 94.0 - [facility] 97.0 % [facility] COHB Art 0.3 % [facility] Comment: Nonsmokers: 0.5-1.5% COHB Smokers: Variable, but usually less than 10% Toxic: 20-30% COHB Lethal: Greater than 60% COHB METHB Art 0.6 <=1.5 % [facility] Na Whole Blood 141 [...] Blood 113 (H) 98 - 107 mmol/L [facility] Gluc Whole Bld 175 65 - 199 mg/dL [facility] Comment: Diabetes: >=200 mg/dL plus symp toms. Lactate WB 1.0 0.5 - 2.2 mmol/L [facility] FIO2 Art 40 % [facility] PF Ratio Art 198 [facility] Specimen Anatomical Collection Method Collection Time Receive d Time (Source) Location / / Volume Laterality Blood specimen 07/09/2017 5:37 AM 017 5:37 (specimen) EST AM EST Yuan Webber MD CHEMISTRY ORDERABLES Performing Organization Address [facility] Phon e Number [address] POCT Glucose (07/09/2017 3:27 AM EST) athologist Signature POC Glucose 192 65 - 199 [facility] mg[facility] Comment: Supplemental ranges: <140 mg/dL before meals <180 mg/dL all other times of the day Specimen Anatomical Collection Method Collection Time Receive d Time (Source) Location / / Volume Laterality Blood specimen 07/09/2017 3:27 AM 017 3:27 (specimen) EST AM EST Yuan Webber MD POINT OF CARE TEST ORDERABLE S Performing Organization Address City/[facility]/ZIP Code Phon e Number [address] (ABNORMAL) Basic Metabolic Panel (non-fasting) (07/09/2017 2:30 AM EST) athologist Signature Glucose Lvl 179 65 - 199 [facility] mg/dL [facility] Comment: Diabetes: >=200 mg/dL plus symp toms BUN 17 10 - 20 mg/dL [facility] Creatinine 1.34 0.80 - 1.50 mg/dL [facility] Sodium 144 135 - 145 mmol/L [facility] Potassium Not Perf 3.5 - 5.0 mmol/L [facility] Comment: Duplicate order Please [...] 15 mmol/L [facility] Calcium 7.1 (L) 8.5 - 10.5 mg/dL [facility] Comment: result [id number]-[id number] Estimated GFR 53 (L) >=60 [facility] Comment: The reported eGFR should be multiplied b y 1.2 for patients. The MDRD is not an appropriate measure o f renal function for patients with body mass extremes or in patients with acute kidney failure. [email or web address] Specimen Anatomical Collection Method Collection Time Receive d Time (Source) Location / / Volume Laterality Blood specimen Venous Draw / 07/09/2017 2:30 AM 2016 2:42 (specimen) Unknown EST AM EST Resulting Agency Comment Spec In Lab Yuan Webber MD CHEMISTRY ORDERABLES Performing Organization Address City/State/[place] [address] (ABNORMAL) Potassium (07/09/2017 2:30 AM EST) P athologist Signature Potassium 5.1 (H) 3.5 - 5.0 [facility] mmol/L [facility] Comment: Please note: ??Patients with [...] Organization Address City/State/ZIP Code Phon e Number [place] [id number] (ABNORMAL) Hemogram (07/09/2017 2:30 AM EST) Analysis Performed At Patho logist Time Signature WBC 12.5 (H) 4.0 - 9.5 [facility] x10(3)/[facility] LABORATORY RBC 3.38 (L) 4.58 - [place] SU [address] [facility] x10(6)/[facility] LABORATORY Hemoglobin 10.1 (L) 13.7 - [facility] gm/dL [facility] LABORATORY Hematocrit 30.3 (L) 40.5 - [facility] 48.5 % [facility] LABORATORY MCV 89.6 82.9 - [facility]1 [facility] LABORATORY MCH 29.9 27.5 - [facility] 32.1 pg [facility] LABORATORY MCHC 33.3 32.0 - [facility] 35.7 gm/dL [facility] LABORATORY Platelets 127 (L) 145 - 357 [facility] x10(3)/[facility] LABORATORY RDWSD 49.3 (H) 36.0 - [facility]0 [facility] LAB[facility]ATORY RDWCV 15.2 (H) 11.4 - [facility] 13.8 % [facility] LABORATORY MPV 9.9 7.6 - 12.9 [facility] nRBC % Auto 0.0 % [facility] LABORATORY nRBC Abs Auto 0.000 0.000 - [facility] SU [address] [facility] x10(3)/[facility] LABORATORY Specimen Anatomical Collection Method Collection Time Receive d Time (Source) Location / / Volume Laterality Blood specimen 07/09/2017 2:30 AM 017 2:41 (specimen) EST AM EST Resulting Agency Comment Spec In Lab Yuan Webber MD HEMATOLOGY ORDERABLES Performing Organization Address City/State/[place] [address] [facility] [address] POCT Glucose (07/09/2017 2:10 AM EST) P athologist Signature POC Glucose 169 65 - 199 [place] mg/dL [facility] LABORATORY Comment: Supplemental ranges: <140 mg/dL before meals <180 mg/dL all other times of the day Specimen Anatomical Collection Method Collection Time Receive d Time (Source) Location / / Volume Laterality Blood specimen 07/09/2017 2:10 AM 017 2:10 (specimen) EST AM EST Yuan Webber MD POINT OF CARE TEST ORDERABLE S Performing Organization Address City/[facility]/ZIP Code Phon e Number [address] POCT Glucose (07/09/2017 1:01 AM EST) P athologist Signature POC Glucose 173 65 - 199 [place] mg/dL [facility] LABORATORY Comment: Supplemental ranges: <140 mg/dL before meals <180 mg/dL all other times of the day Specimen Anatomical Collection Method Collection Time Receive d Time (Source) Location / / Volume Laterality Blood specimen 07/09/2017 1:01 AM 017 1:01 (specimen) EST AM EST Yuan Webber MD POINT OF CARE TEST ORDERABLE S Performing Organization Address City/[facility]/[place] [address] Blood culture (07/09/2017 12:40 AM EST) Patholo gist Method Time Signature Blood Culture No growth [place] at 5 days. [facility] LABORATORY Specimen Anatomical Collection Method Collection Time Receive d Time (Source) Location / / Volume Laterality Blood specimen STRUCTURE OF RIGHT 07/09/2017 12:40 3:58 (specimen) UPPER LIMB / AM EST AM EST Unknown Resulting Agency Comment Spec In Lab Yuan Webber MD MICROBIOLOGY - BLOOD ORDERAB LES Performing Organization Address City/State/[place] [address] Blood culture (07/09/2017 12:30 AM EST) Patholo gist Method Time Signature Blood Culture No growth [place] ZHA[place] at 5 days. [facility] LABORATORY Specimen Anatomical Collection Method Collection Time Receive d Time (Source) Location / / Volume Laterality Blood specimen STRUCTURE OF LEFT 07/09/2017 12:30 1211/2016 3:59 (specimen) UPPER LIMB / AM EST AM EST Unknown Resulting Agency Comment Spec In Lab Yuan Webber MD MICROBIOLOGY - BLOOD ORDERAB LES Performing Organization Address City/State/[place] [address] (ABNORMAL) Urinalysis Microscopic Exam (07/09/2017 12:05 AM EST) Analysis Performed At Patho logist Time Signature RBC UA 32 (H) 0 - 3 /HPF [facility] LABORATORY WBC UA 5 (H) 0 - 3 /HPF [facility] LABORATORY Squam Epith UA <1 <=4 /HPF [facility] LABORATORY Hyaline Cast 17 (H) 0 - 2 /LPF [facility] LABORATORY Gran Cast UA 1 (H) <=0 /LPF [facility] LABORATORY Uric Ac Bianca Rare (A) None /HPF [facility] LABORATORY Specimen (Source) Anatomical Collection Method Collection Time Re ceived Time Location / / Volume Laterality Urine specimen 07/09/2017 12:05 07/09/ 7 obtained via AM EST 12:39 AM EST indwelling urinary catheter (specimen) Resulting Agency Comment Spec In Lab Yuan Webber MD URINE ORDERABLES Performing Organization Address City/[facility]/[place] [address] (ABNORMAL) Urinalysis with reflex Culture (07/09/2017 12:05 AM EST) Patholo gist Method Time Signature Glucose UA Negative Negative [facility] mg/dL [facility] LABORATORY Protein UA 30 (A) Negative [facility] mg/dL [facility] LABOR[facility]ORY Bilirubin UA Negative Negative [facility] mg/dL [facility] LABORATORY Comment: Clinical correlation required for positi ve Urine Bilirubin results as false positive may occur with some drugs and d rug related products. If a false positive is suspected a serum total bili eyager should be considered if clinically indicated. Urobilinogen UA Normal Normal mg/dL [facility] LABORATORY pH UA 5.0 5.0 - 8.0 [facility] LABORATORY Blood UA Moderate (A) Negative mg/dL [facility] LABORATORY Ketones UA Negative Negative mg/dL [facility] LABORATORY Nitrite UA Negative Negative [facility] LABORATORY Leukocytes UA Negative Negative [facility] LABORATORY Appearance UA Hazy (A) Clear [facility] LABORATORY Spec [place] UA 1.025 1.002 - 1.030 [facility] LABORATORY Color UA Yellow Yellow [facility] LABORATORY Culture Reflexed No [facility] LABORATORY Specimen (Source) Anatomical Collection Method Collection Time Re ceived Time Location / / Volume Laterality Urine specimen 07/09/2017 12:05 7 obtained via AM EST 12:39 AM EST indwelling urinary catheter (specimen) Resulting Agency Comment Spec In Lab Yuan Webber MD URINE ORDERABLES Performing Organization Address City/[facility]/ZIP Code Phon e Number [address] POCT Glucose (07/08/2017 11:01 PM EST) athologist Signature POC Glucose 191 65 - 199 [facility] mg[facility]dL [facility] LABORATORY Comment: Supplemental ranges: <140 mg/dL before meals <180 mg/dL all other times of the day Specimen Anatomical Collection Method Collection Time Receive d Time (Source) Location / / Volume Laterality Blood specimen 07/08/2017 11:01 7 (specimen) PM EST 11:01 PM EST Yuan Webber MD POINT OF CARE TEST ORDERABLE S Performing Organization Address City/State/ZIP Code Phon e Number [address] POCT Glucose (07/08/2017 10:04 PM EST) athologist Signature POC Glucose 198 65 - 199 [facility] mg/dL [facility] LABORATORY Comment: Supplemental ranges: <140 mg/dL before meals <180 mg/dL all other times of the day Specimen Anatomical Collection Method Collection Time Receive d Time (Source) Location / / Volume Laterality Blood specimen 07/08/2017 10:04 7 (specimen) PM EST 10:04 PM EST Yuan Webber MD POINT OF CARE TEST ORDERABLE S Performing Organization Address City/State/[place] [address] Prepare Albumin 5% in [...] Organization Address City/State/[place] [address] POCT Glucose (07/08/2017 8:28 PM EST) P athologist Signature POC Glucose 195 65 - 199 [facility] mg/dL [facility] LABORATORY Comment: Supplemental ranges: <140 mg/dL before meals <180 mg/dL all other times of the day Specimen Anatomical Collection Method Collection Time Receive d Time (Source) Location / / Volume Laterality Blood specimen 07/08/2017 8:28 PM 017 8:28 (specimen) EST PM EST uYan Webber MD POINT OF CARE TEST ORDERABLE S Performing Organization Address City/State/[place] [address] (ABNORMAL) POCT Glucose (07/08/2017 7:13 PM EST) P athologist Signature POC Glucose 220 (H) 65 - 199 [facility] mg/dL [facility] LABORATORY Comment: Supplemental ranges: <140 mg/dL before meals <180 mg/dL all other times of the day Specimen Anatomical Collection Method Collection Time Receive d Time (Source) Location / / Volume Laterality Blood specimen 07/08/2017 7:13 PM 017 7:13 (specimen) EST PM EST Yuan Webbre MD POINT OF CARE TEST ORDERABLE S Performing Organization Address City/State/ZIP Code Phon e Number [address] POCT Glucose (07/08/2017 5:04 PM EST) P athologist Signature POC Glucose 147 65 - 199 [facility] mg/dL [facility] LABORATORY Comment: Supplemental ranges: <140 mg/dL before meals <180 mg/dL all other times of the day Specimen Anatomical Collection Method Collection Time Receive d Time (Source) Location / / Volume Laterality Blood specimen 07/08/2017 5:04 PM 017 5:04 (specimen) EST PM EST Yuan Webber MD POINT OF CARE TEST ORDERABLE S Performing Organization Address City/State/[place] [address] (ABNORMAL) BLOOD GAS 2 ARTERIAL (07/08/2017 4:13 PM EST) Analysis Performed At Patho logist Time Signature pH Art 7.38 7.35 - [facility] 7.45 [facility] LABORATORY pCO2 Art 36 35 - 45 [facility] LABORATORY pO2 Art 91 85 - 104 [facility] LABORATORY HCO3 Art 20.9 20.0 - [facility] 26.[address] [facility] mmol/L [facility] LABORATORY BE Art -4.2 (L) -3.0 - 3.0 [facility] mmol/L [facility] LABORATORY Hgb Blood Gas 11.7 (L) 13.7 - [facility] 16.5 gm/dL [facility] LABORATORY O2HB Art 95.1 94.0 - [facility] 97.0 % [facility] LABORATORY COHB Art 0.6 % [facility] LABORATORY Comment: Nonsmokers: 0.5-1.5% COHB Smokers: Variable, but usually less than 10% Toxic: 20-30% COHB Lethal: Greater than 60% COHB METHB Art 0.6 <=1.5 % [facility] LABORATORY Na Whole Blood 139 [...] Blood 110 (H) 98 - 107 mmol/L [facility] LABORATORY Gluc Whole Bld 155 65 - 199 mg/dL [facility] LABORATORY Comment: Diabetes: >=200 mg/dL plus symp toms. Lactate WB 1.4 0.5 - 2.2 mmol/L [facility] LABORATORY FIO2 Art 40 % [facility] LABORATORY PF Ratio Art 228 [facility] LABORATORY Specimen Anatomical Collection Method Collection Time Receive d Time (Source) Location / / Volume Laterality Blood specimen 07/08/2017 4:13 PM 017 4:13 (specimen) EST PM EST Yuan Webber MD CHEMISTRY ORDERABLES Performing Organization Address City/[facility] Code Phon e Number [address] POCT Glucose (07/08/2017 4:01 PM EST) athologist Signature POC Glucose 148 65 - 199 [facility] mg/dL [facility] LABORATORY Comment: Supplemental ranges: <140 mg/dL before meals <180 mg/dL all other times of the day Specimen Anatomical Collection Method Collection Time Receive d Time (Source) Location / / Volume Laterality Blood specimen 07/08/2017 4:01 PM 017 4:01 (specimen) EST PM EST Yuan Webber MD POINT OF CARE TEST ORDERABLE S Performing Organization Address City/[facility] Code Phon e Number [address] POCT Glucose (07/08/2017 3:21 PM EST) athologist Signature POC Glucose 118 65 - 199 [facility] mg/dL [facility] LABORATORY Comment: Supplemental ranges: <140 mg/dL before meals <180 mg/dL all other times of the day Specimen Anatomical Collection Method Collection Time Receive d Time (Source) Location / / Volume Laterality Blood specimen 07/08/2017 3:21 PM 017 3:21 (specimen) EST PM EST Yuan Webber MD POINT OF CARE TEST ORDERABLE S Performing Organization Address City/State/ZIP Code Phon e Number [address] POCT Glucose (07/08/2017 2:01 PM EST) athologist Signature POC Glucose 129 65 - 199 [place] mg/dL [facility] LABORATORY Comment: Supplemental ranges: <140 mg/dL before meals <180 mg/dL all other times of the day Specimen Anatomical Collection Method Collection Time Receive d Time (Source) Location / / Volume Laterality Blood specimen 07/08/2017 2:01 PM 017 2:01 (specimen) EST PM EST Yuan Webber MD POINT OF CARE TEST ORDERABLE S Performing Organization Address City/State/ZIP Code Phon e Number [address] POCT Glucose (07/08/2017 11:53 AM EST) athologist Signature POC Glucose 156 65 - 199 [place] mg/dL [facility] LABORATORY Comment: Supplemental ranges: <140 mg/dL before meals <180 mg/dL all other times of the day Specimen Anatomical Collection Method Collection Time Receive d Time (Source) Location / / Volume Laterality Blood specimen 07/08/2017 11:53 7 (specimen) AM EST 11:53 AM EST Yuan Webber MD POINT OF CARE TEST ORDERABLE S Performing Organization Address City/State/ZIP Code Phon e Number [address] POCT Glucose (07/08/2017 11:04 AM EST) athologist Signature POC Glucose 181 65 - 199 [place] mg/dL [facility] LABORATORY Comment: Supplemental ranges: <140 mg/dL before meals <180 mg/dL all other times of the day Specimen Anatomical Collection Method Collection Time Receive d Time (Source) Location / / Volume Laterality Blood specimen 07/08/2017 11:04 7 (specimen) AM EST 11:04 AM EST Yuan Webber MD POINT OF CARE TEST ORDERABLE S Performing Organization Address City/[facility]/[place] [address] (ABNORMAL) POCT Glucose (07/08/2017 9:24 AM EST) P athologist Signature POC Glucose 203 (H) 65 - 199 [facility] mg/dL [facility] LABORATORY Comment: Supplemental ranges: <140 mg/dL before meals <180 mg/dL all other times of the day Specimen Anatomical Collection Method Collection Time Receive d Time (Source) Location / / Volume Laterality Blood specimen 07/08/2017 9:24 AM 017 9:24 (specimen) EST AM EST Yuan Webber MD POINT OF CARE TEST ORDERABLE S Performing Organization Address City/[facility] [place] [address] APTT (07/08/2017 8:40 AM EST) athologist Signature PTT 33 25 - 35 sec [facility] LABORATORY Comment: The recommended therapeutic range for fu ll dose, unfractionated heparin at [facility] is 80 ? 114 seconds. The use [...] Webber MD HEMATOLOGY ORDERABLES Performing Organization Address City/[facility]/[place] [address] (ABNORMAL) Prothrombin Time (07/08/2017 [...] Webber MD HEMATOLOGY ORDERABLES Performing Organization Address City/[facility]/[place] [address] (ABNORMAL) POCT Glucose (07/08/2017 7:38 AM EST) athologist Signature POC Glucose 232 (H) 65 - 199 [facility] mg/dL [facility] LABORATORY Comment: Supplemental ranges: <140 mg/dL before meals <180 mg/dL all other times of the day Specimen Anatomical Collection Method Collection Time Receive d Time (Source) Location / / Volume Laterality Blood specimen 07/08/2017 7:38 AM 017 7:38 (specimen) EST AM EST Yuan Webber MD POINT OF CARE TEST ORDERABLE S Performing Organization Address City/[facility]/[place] [address] (ABNORMAL) POCT Glucose (07/08/2017 7:07 AM EST) athologist Signature POC Glucose 234 (H) 65 - 199 [facility] mg/dL [facility] LABORATORY Comment: Supplemental ranges: <140 mg/dL before meals <180 mg/dL all other times of the day Specimen Anatomical Collection Method Collection Time Receive d Time (Source) Location / / Volume Laterality Blood specimen 07/08/2017 7:07 AM 017 7:07 (specimen) EST AM EST Yuan Webber MD POINT OF CARE TEST ORDERABLE S Performing Organization Address City/State/[place] [address] (ABNORMAL) POCT Glucose (07/08/2017 6:04 AM EST) P athologist Signature POC Glucose 225 (H) 65 - 199 [place] mg/dL [facility] LABORATORY Comment: Supplemental ranges: <140 mg/dL before meals <180 mg/dL all other times of the day Specimen Anatomical Collection Method Collection Time Receive d Time (Source) Location / / Volume Laterality Blood specimen 07/08/2017 6:04 AM 017 6:04 (specimen) EST AM EST Yuan Webber MD POINT OF CARE TEST ORDERABLE S Performing Organization Address City/[facility]/[place] [address] (ABNORMAL) POCT Glucose (07/08/2017 5:31 AM EST) P athologist Signature POC Glucose 216 (H) 65 - 199 [facility] mg/dL [facility] LABORATORY Comment: Supplemental ranges: <140 mg/dL before meals <180 mg/dL all other times of the day Specimen Anatomical Collection Method Collection Time Receive d Time (Source) Location / / Volume Laterality Blood specimen 07/08/2017 5:31 AM 017 5:31 (specimen) EST AM EST Yuan Webber MD POINT OF CARE TEST ORDERABLE S Performing Organization Address City/State/[place] [address] (ABNORMAL) POCT Glucose (07/08/2017 4:52 AM EST) P athologist Signature POC Glucose 257 (H) 65 - 199 [facility] SU mg/dL [facility] LABORATORY Comment: Supplemental ranges: <140 mg/dL before meals <180 mg/dL all other times of the day Specimen Anatomical Collection Method Collection Time Receive d Time (Source) Location / / Volume Laterality Blood specimen 07/08/2017 4:52 AM 017 4:52 (specimen) EST AM EST Daphne Shahid MD POINT OF CARE TEST ORDERABLE S Performing Organization Address City/State/[place] [address] (ABNORMAL) BLOOD GAS 2 ARTERIAL (07/08/2017 4:04 AM EST) Analysis Performed At Patho logist Time Signature pH Art 7.30 (L) 7.35 - [facility] 7.45 [facility] LABORATORY pCO2 Art 41 35 - 45 [facility] LABORATORY pO2 Art 83 (L) 85 - 104 [facility] LABORATORY HCO3 Art 19.6 (L) 20.0 - [facility] 26.[address] [facility] mmol/[facility] LABORATORY BE Art -6.8 (L) -3.0 - 3.0 [facility] mmol/L [facility] LABORATORY Hgb Blood Gas 12.2 (L) 13.7 - [facility] 16.5 gm/dL [facility] LABORATORY O2HB Art 93.5 (L) 94.0 - [facility] 97.0 % [facility] LABORATORY COHB Art 0.4 % [facility] LABORATORY Comment: Nonsmokers: 0.5-1.5% COHB Smokers: Variable, but usually less than 10% Toxic: 20-30% COHB Lethal: Greater than 60% COHB METHB Art 0.8 <=1.5 % [facility] LABORATORY Na Whole Blood 138 [...] Whole Blood 107 98 - 107 mmol/L [facility] LABORATORY Gluc Whole Bld 274 (H) 65 - 199 mg/dL [facility] LABORATORY Comment: Diabetes: >=200 mg/dL plus symp toms. Lactate WB 4.4 (Critical) 0.5 - 2.2 mmol/L [facility] LABORATORY Comment: Noted by lanolin plant operator. FIO2 Art 40 % [facility] LABORATORY PF Ratio Art 208 [facility] LABORATORY Specimen Anatomical Collection Method Collection Time Receive d Time (Source) Location / / Volume Laterality Blood specimen 07/08/2017 4:04 AM 017 4:04 (specimen) EST AM EST Daphne Shahid MD CHEMISTRY ORDERABLES Performing Organization Address City/[facility]/ZIP Code Phon e Number [address] Scan, Peripheral Blood (07/08/2017 [...] Webber MD HEMATOLOGY ORDERABLES Performing Organization Address City/[facility]/ZIP Code Phon e Number [address] (ABNORMAL) Differential, Automated (07/08/2017 4:00 AM EST) Patholo gist Method Time Signature Neutrophils % 85.4 % [facility] LABORATORY Neutr Abs (ANC) 16.07 (H) 1.70 - [facility] 6.10 [facility] x10(3)/[facility] L LABORATORY Lymphocytes % 3.5 % [facility] LABORATORY Lymphocytes Abs 0.6 (L) 0.9 - 3.2 [facility] x10(3)/[facility] LABORATORY Monocytes % 10.4 % [facility] LABORATORY Monocyte Abs 2.0 (H) 0.3 - 0.9 [facility] x10(3)/[facility] LABORATORY Eosinophils % 0.0 % [facility] LABORATORY Eosinophils Abs 0.0 0.0 - 0.4 [facility] x10(3)/[facility] LABORATORY Basophils % 0.1 % [facility] LABORATORY Basophils Abs 0.0 0.0 - 0.1 [facility] x10(3)/[facility] LABORATORY Immature Gran % 0.60 % [facility] [...] Abs 0.12 (H) 0.00 - 0.04 x10(3)/[facility] LABORATORY Specimen Anatomical Collection Method Collection Time Receive d Time (Source) Location / / Volume Laterality Blood specimen 07/08/2017 4:00 AM 017 4:09 (specimen) EST AM EST Resulting Agency Comment Spec In Lab Yuan Webber MD HEMATOLOGY ORDERABLES Performing Organization Address City/State/[place] [address] (ABNORMAL) Hemogram (07/08/2017 4:00 AM EST) Analysis Performed At Patho logist Time Signature WBC 18.8 (H) 4.0 - 9.5 [facility] x10(3)/[facility] LABORATORY RBC 4.00 (L) 4.58 - [facility] 5.54 [facility] x10(6)/[facility] LABORATORY Hemoglobin 11.9 (L) 13.7 - [facility] 16.5 gm/dL [facility] LABORATORY Hematocrit 35.9 (L) 40.5 - [facility] 48.5 % [facility] MCV 89.8 82.9 - [facility] 93.1 fL [facility] LAB[facility] MCH 29.8 27.5 - [facility] 32.1 pg [facility] MCHC 33.1 32.0 - [facility] 35.7 gm/dL [facility] LABORATORY Platelets 232 145 - 357 [facility] x10(3)/[facility] LABORATORY RDWSD 47.6 (H) 36.0 - [facility] 45.0 [facility] LABORATORY RDWCV 14.5 (H) 11.4 - [facility] 13.8 % [facility] LABORATORY MPV 9.5 7.6 - 12.9 [facility] LABORATORY nRBC % Auto 0.0 % [facility] LABORATORY nRBC Abs Auto 0.000 0.000 - [facility] 0.[address] [facility] x10(3)/[facility] LABORATORY Specimen Anatomical Collection Method Collection Time Receive d Time (Source) Location / / Volume Laterality Blood specimen 07/08/2017 4:00 AM 017 4:09 (specimen) EST AM EST Resulting Agency Comment Spec In Lab Yuan Webber MD HEMATOLOGY ORDERABLES Performing Organization Address City/[facility]/[place] [address] (ABNORMAL) Electrolytes panel (07/08/2017 4:00 AM EST) P athologist Signature Sodium 139 135 - 145 [facility] mmol/L [facility] [facility] Potassium 4.7 3.5 - 5.0 [facility] mmol/L [facility] Comment: result [id number] Please note: [...] - 15 mmol/L [facility] Specimen Anatomical Collection Method Collection Time Receive d Time (Source) Location / / Volume Laterality Blood specimen 07/08/2017 4:00 AM 017 4:10 (specimen) EST AM EST Resulting Agency Comment Spec In Lab Yuan Webber MD CHEMISTRY ORDERABLES Performing Organization Address City/[facility]/[place] [address] (ABNORMAL) Cardiac Enzymes (LEB/CGP) (07/08/2017 4:00 AM EST) athologist Signature Troponin-T 1.88 (H) 0.00 - [facility] 0.00 ng/mL [facility] Comment: The 99th percentile for [...] additional sample may be indicated. Reference: Third [place] Definition of Myocardial Infarction. Journal of the [place] [employer] 2012;60:1581-98 CK, Total 413 [...] Organization Address City/State/[place] [address] (ABNORMAL) Glucose, fasting (07/08/2017 4:00 AM EST) athologist Signature Glucose 287 (H) 65 - 99 [place] [facility] Fasting mg/dL [facility] Comment: ?Fasting* Glucose Interpretive C [...] of Diabetes Mellitus, Position Statement from the [place] [employer]. ??Diabete s Care, Volume 33, Supplement 1, Jul 2009 Specimen Anatomical Collection Method Collection Time Receive d Time (Source) Location / / Volume Laterality Blood specimen 07/08/2017 4:00 AM 017 4:09 (specimen) EST AM EST Resulting Agency Comment Spec In Lab Yuan Webber MD CHEMISTRY ORDERABLES Performing Organization Address City/[facility] [place] [address] (ABNORMAL) Creatinine (07/08/2017 4:00 AM EST) Analysis Performed At [facility] Time Signature Creatinine 1.55 (H) 0.80 - [facility] 1.50 mg/dL [facility] Estimated GFR 44 (L) >=60 [facility] Comment: The reported eGFR should be multiplied b y 1.2 for patients. The MDRD is not an appropriate measure o f renal function for patients with body mass extremes or in patients with acute kidney failure. http://WP [employer]World/DHnkdep http://WP [employer]/DHMCnkf Specimen Anatomical Collection Method Collection Time Receive d Time (Source) Location / / Volume Laterality Blood specimen 07/08/2017 4:00 AM 017 4:09 (specimen) EST AM EST Resulting Agency Comment Spec In Lab Yuan Webber MD CHEMISTRY ORDERABLES Performing Organization Address City/[facility]/[place] [address] BUN (07/08/2017 4:00 AM EST) athologist Signature BUN 16 10 - 20 [facility] Specimen Anatomical Collection Method Collection Time Receive d Time (Source) Location / / Volume Laterality Blood specimen 07/08/2017 4:00 AM 017 4:09 (specimen) EST AM EST Resulting Agency Comment Spec In Lab Yuan Webber MD CHEMISTRY ORDERABLES Performing Organization Address City/State/[place] [address] (ABNORMAL) POCT Glucose (07/08/2017 3:00 AM EST) athologist Signature POC Glucose 273 (H) 65 - 199 [facility] mg/dL [facility] Comment: Supplemental ranges: <140 mg/dL before meals <180 mg/dL all other times of the day Specimen Anatomical Collection Method Collection Time Receive d Time (Source) Location / / Volume Laterality Blood specimen 07/08/2017 3:00 AM 017 3:00 (specimen) EST AM EST Daphne Shahid MD POINT OF CARE TEST ORDERABLE S Performing Organization Address City/[facility]/[place] [address] (ABNORMAL) POCT Glucose (07/08/2017 1:57 AM EST) athologist Signature POC Glucose 288 (H) 65 - 199 [facility] mg/dL [facility] Comment: Supplemental ranges: <140 mg/dL before meals <180 mg/dL all other times of the day Specimen Anatomical Collection Method Collection Time Receive d Time (Source) Location / / Volume Laterality Blood specimen 07/08/2017 1:57 AM 017 1:57 (specimen) EST AM EST Daphne Shahid MD POINT OF CARE TEST ORDERABLE S Performing Organization Address City/State/[place] [address] (ABNORMAL) POCT Glucose (07/08/2017 1:01 AM EST) athologist Signature POC Glucose 315 (H) 65 - 199 [facility] mg/dL [facility] Comment: Supplemental ranges: <140 mg/dL before meals <180 mg/dL all other times of the day Specimen Anatomical Collection Method Collection Time Receive d Time (Source) Location / / Volume Laterality Blood specimen 07/08/2017 1:01 AM 017 1:01 (specimen) EST AM EST Daphne Shahid MD POINT OF CARE TEST ORDERABLE S Performing Organization Address City/State/[place] [address] (ABNORMAL) BLOOD GAS 2 ARTERIAL (07/08/2017 12:09 AM EST) athologist Signature pH Art 7.26 7.35 - [facility] (Critical) 7.45 [facility] Comment: Noted by lanolin plant operator. pCO2 Art 41 35 - 45 mmHg [facility] pO2 Art 96 85 - [address] [facility] HCO3 Art 17.7 (L) 20.0 - 26.0 mmol/L [facility] BE Art -9.4 (L) -3.0 - 3.0 mmol/L [facility] Hgb Blood Gas 12.4 (L) 13.7 - 16.5 gm/dL [facility] O2HB Art 94.7 94.0 - 97.0 % [facility] COHB Art 0.2 % [facility] Comment: Nonsmokers: 0.5-1.5% COHB Smokers: Variable, but usually less than 10% Toxic: 20-30% COHB Lethal: Greater than 60% COHB METHB Art 0.6 <=1.5 % [facility] Na Whole Blood 141 [...] Blood 109 (H) 98 - 107 mmol/L [facility] Gluc Whole Bld 315 (H) 65 - 199 mg/dL [facility] Comment: Diabetes: >=200 mg/dL plus symp toms. Lactate WB 7.6 (Critical) 0.5 - 2.2 mmol/L [facility] Comment: Noted by lanolin plant operator. FIO2 Art 40 % [facility] PF Ratio Art 240 [facility] Specimen Anatomical Collection Method Collection Time Receive d Time (Source) Location / / Volume Laterality Blood specimen Arterial Draw / 07/08/2017 12:09 2016 5:31 (specimen) Unknown AM EST AM EST Resulting Agency Comment Spec In Lab Samy Maldonado MD CHEMISTRY ORDERABLES Performing Organization Address City/State/[place] [address] (ABNORMAL) POCT Glucose (07/07/2017 10:56 PM EST) P athologist Signature POC Glucose 292 (H) 65 - 199 [facility] mg/dL [facility] Comment: Supplemental ranges: <140 mg/dL before meals <180 mg/dL all other times of the day Specimen Anatomical Collection Method Collection Time Receive d Time (Source) Location / / Volume Laterality Blood specimen 07/07/2017 10:56 7 (specimen) PM EST 10:56 PM EST Daphne Shahid MD POINT OF CARE TEST ORDERABLE S Performing Organization Address City/State/[place] [address] (ABNORMAL) BLOOD GAS 2 ARTERIAL (07/07/2017 10:04 PM EST) athologist Signature pH Art 7.22 7.35 - [facility] (Critical) 7.45 [facility] Comment: Noted by lanolin plant operator. pCO2 Art 42 35 - 45 mmHg [facility] pO2 Art 94 85 - [address] [facility] HCO3 Art 16.9 (L) 20.0 - 26.0 mmol/L [facility] BE Art -10.7 (L) -3.0 - 3.0 mmol/L [facility] Hgb Blood Gas 13.0 (L) 13.7 - 16.5 gm/dL [facility] O2HB Art 93.8 (L) 94.0 - 97.0 % [facility] COHB Art 0.7 % [facility] Comment: Nonsmokers: 0.5-1.5% COHB Smokers: Variable, but usually less than 10% Toxic: 20-30% COHB Lethal: Greater than 60% COHB METHB Art 0.7 <=1.5 % [facility] Na Whole Blood 140 135 - 145 mmol/L [facility] K Whole Blood 3.3 (L) 3.5 - 5.0 mmol/L [facility] [...] Whole Blood 107 98 - 107 mmol/L [facility] Gluc Whole Bld 304 (H) 65 - 199 mg/dL [facility] Comment: Diabetes: >=200 mg/dL plus symp toms. Lactate WB 8.2 (Critical) 0.5 - 2.2 mmol/L [facility] Comment: Noted by lanolin plant operator. FIO2 Art 40 % [facility] PF Ratio Art 235 [facility] Specimen Anatomical Collection Method Collection Time Receive d Time (Source) Location / / Volume Laterality Blood specimen 07/07/2017:04 7 (specimen) PM EST 10:04 PM EST Daphne Shahid MD CHEMISTRY ORDERABLES Performing Organization Address City/[facility] [place] [address] (ABNORMAL) Hemoglobin (07/07/2017 10:00 PM EST) athologist Signature Hemoglobin 12.8 (L) 13.7 - [place] [facility] 16.5 gm/dL [facility] Specimen Anatomical Collection Method Collection Time Receive d Time (Source) Location / / Volume Laterality Blood specimen 07/07/2017 10:00 7 (specimen) PM EST 10:13 PM EST Resulting Agency Comment Spec In Lab Yuan Webber MD HEMATOLOGY ORDERABLES Performing Organization Address [facility] [place] [address] (ABNORMAL) Potassium (07/07/2017 10:00 PM EST) athologist Signature Potassium 3.4 (L) 3.5 - 5.0 [facility] mmol/L [facility] Comment: Please note: ??Patients with [...] Webber MD CHEMISTRY ORDERABLES Performing Organization Address City/[facility]/ZIP [facility] [place] [place] [address] (ABNORMAL) POCT Glucose (07/07/2017 8:49 PM EST) athologist Signature POC Glucose 241 (H) 65 - 199 [facility] mg/dL [facility] Comment: Supplemental ranges: <140 mg/dL before meals <180 mg/dL all other times of the day Specimen Anatomical Collection Method Collection Time Receive d Time (Source) Location / / Volume Laterality Blood specimen 07/07/2017 8:49 PM 017 8:49 (specimen) EST PM EST Daphne Shahid MD POINT OF CARE TEST ORDERABLE S Performing Organization Address City/[facility]/[place] [address] Prepare Albumin 5% in [...] BROWN BLOOD BANK ORDERABLES Performing Organization Address [facility]/[place] [address] EKG 12 Lead (07/07/2017 7:17 PM EST) Component Value Ref Range Test Analysis Performed Pathologis t Method Time At Signature Ventricular rate 75 BPM MUSE SYSTEM Atrial Rate 75 BPM MUSE SYSTEM P-R Interval 168 ms MUSE SYSTEM QRS Duration 104 ms MUSE SYSTEM Q-T Interval 462 ms MUSE SYSTEM QTC Calculated 515 ms MUSE SYSTEM (Bezet) Calculated P [place] 52 degrees MUSE SYSTEM Calculated R [place] -40 degrees MUSE SYSTEM Calculated T [place] 39 degrees MUSE SYSTEM INTERPRETATION Normal sinus [...] 7.21 7.35 - [facility] (Critical) 7.45 [facility] Comment: Noted by lanolin plant operator. pCO2 Art 50 (H) 35 - 45 mmHg [facility] pO2 Art 238 (H) 85 - [address] [facility] HCO3 Art 19.8 (L) 20.0 - 26.0 mmol/L [facility] BE Art -8.1 (L) -3.0 - 3.0 mmol/L [facility] Hgb Blood Gas 12.8 (L) 13.7 - 16.5 gm/dL [facility] O2HB Art 97.5 (H) 94.0 - 97.0 % [facility] COHB Art 0.5 % [facility] Comment: Nonsmokers: 0.5-1.5% COHB Smokers: Variable, but usually less than 10% Toxic: 20-30% COHB Lethal: Greater than 60% COHB METHB Art 0.7 <=1.5 % [facility] Na Whole Blood 140 135 - 145 mmol/L [facility] K Whole Blood 3.0 (Critical) 3.5 - 5.0 mmol/L [facility] Comment: Noted by lanolin plant operator. Please note: Patients with WBC >100,000 may have falsely elevated Potassium levels. Contact the Clinical Chemistry L aboratory if there are any questions. ICa Whole Blood 1.07 (L) 1.15 - 1.33 mmol/L [facility] Comment: Note: ??Total bilirubin higher than 20 m g/dL may lead to falsely low ionized calcium. CL Whole Blood 107 98 - 107 mmol/L [facility] Gluc Whole Bld 270 (H) 65 - 199 mg/dL [facility] Comment: Diabetes: >=200 mg/dL plus symp toms. Lactate WB 4.9 (Critical) 0.5 - 2.2 mmol/L [facility] Comment: Noted by lanolin plant operator. FIO2 Art 100 % [facility] PF Ratio Art 238 [facility] Specimen Anatomical Collection Method Collection Time Receive d Time (Source) Location / / Volume Laterality Blood specimen 07/07/2017 6:57 PM 017 6:57 (specimen) EST PM EST Daphne Shahid MD CHEMISTRY ORDERABLES Performing Organization Address City/State/[place] [address] (ABNORMAL) BLOOD GAS 2 ARTERIAL (07/07/2017 5:31 PM EST) athologist Signature pH Art 7.29 7.35 - [facility] (Critical) 7.45 [facility] Comment: Noted by lanolin plant operator. pCO2 Art 48 (H) 35 - 45 mmHg [facility] pO2 Art 137 (H) 85 - [address] [facility] HCO3 Art 22.4 20.0 - 26.0 mmol/L [facility] BE Art -4.3 (L) -3.0 - 3.0 mmol/L [facility] Hgb Blood Gas 10.0 (L) 13.7 - 16.5 gm/dL [facility] O2HB Art 97.3 (H) 94.0 - 97.0 % [facility] COHB Art 0.3 % [facility] Comment: Nonsmokers: 0.5-1.5% COHB Smokers: Variable, but usually less than 10% Toxic: 20-30% COHB Lethal: Greater than 60% COHB METHB Art 0.3 <=1.5 % [facility] Na Whole Blood 132 (L) 135 - 145 mmol/L [facility] K Whole Blood 4.0 [...] Whole Blood 105 98 - 107 mmol/L [facility] Gluc Whole Bld 293 (H) 65 - 199 mg/dL [facility] Comment: Diabetes: >=200 mg/dL plus symp toms. Lactate WB 3.1 (H) 0.5 - 2.2 mmol/L [facility] Specimen Anatomical Collection Method Collection Time Receive d Time (Source) Location / / Volume Laterality Blood specimen 07/07/2017 5:31 PM 017 5:31 (specimen) EST PM EST Daphne Shahid MD CHEMISTRY ORDERABLES Performing Organization Address City/[facility] Phon e Number [address] Fibrinogen (07/07/2017 5:30 PM EST) athologist Signature Fibrinogen 224 180 - 510 [facility] mg/dL [facility] Comment: Called by: JEET, Read [...] Perez MD HEMATOLOGY ORDERABLES Performing Organization Address [facility] Phon e Number [address] APTT (07/07/2017 5:30 PM EST) P athologist Signature PTT 30 25 - 35 sec [facility] Comment: The recommended therapeutic range for fu ll dose, unfractionated heparin at [facility] is 80 ? 114 seconds. The use [...] Perez MD HEMATOLOGY ORDERABLES Performing Organization Address City/[facility]/[place] [address] (ABNORMAL) Prothrombin Time (07/07/2017 [...] Perez MD HEMATOLOGY ORDERABLES Performing Organization Address City/[facility] [place] [address] (ABNORMAL) Hemogram (07/07/2017 5:30 PM EST) P athologist Signature WBC 19.6 (H) 4.0 - 9.5 [facility] x10(3)/[facility] LABORATORY RBC 3.08 (L) 4.58 - [facility] 5.[address] [facility] x10(6)/[facility] LABORATORY Hemoglobin 9.2 (L) 13.7 - [facility] 16.5 gm/dL [facility] Hematocrit 28.0 (L) 40.5 - [facility] 48.5 % [facility] Comment: This result has been called to MONICA MORAN by DONALD GROSSMAN on 07 07 2017 at 1759, and has been read back. MCV 90.9 82.9 - 93.1 fL [facility] MCH 29.9 27.5 - 32.1 pg [facility] MCHC 32.9 32.0 - 35.7 gm/dL [facility]ORY Platelets 155 145 - 357 x10(3)/[facility] LABORATORY RDWSD 46.5 (H) 36.0 - 45.0 fL [facility] RDWCV 14.1 (H) 11.4 - 13.8 % [facility] MPV 9.5 7.6 - 12.9 [facility] LABORATORY nRBC % Auto 0.0 % [facility] nRBC Abs Auto 0.000 0.000 - 0.000 x10(3)/[facility] LABORATORY Specimen Anatomical Collection Method Collection Time Receive d Time (Source) Location / / Volume Laterality Blood specimen 07/07/2017 5:30 PM 017 5:34 (specimen) EST PM EST Resulting Agency Comment Spec In Lab Yifan Perez MD HEMATOLOGY ORDERABLES Performing Organization Address City/[facility]/ZIP [facility] Phon e Number [address] Prepare Platelets, Apheresis (07/07/2017 5:00 PM EST) P athologist Signature Dispensed? Yes [facility] Specimen Anatomical Collection Method Collection Time Receive d Time (Source) Location / / Volume Laterality Blood specimen 07/07/2017 5:00 PM 017 4:58 (specimen) EST PM EST Daphne Shahid MD BLOOD BANK ORDERABLES Performing Organization Address City/[facility] Phon e Number [address] Platelet count (07/07/2017 4:55 PM EST) P athologist Signature Platelets 177 145 - 357 [facility] x10(3)/[facility] LABORATORY Plat Immature 1.5 0.0 - 7.4 [facility] Comment: Limitation of the Immature Platelet Frac tion (IPF)-May be less reliable when the platelet count is less than 37g426/u L due to statistical imprecision. The IPF [...] in a decreased state of production. References: [employer] The Clinical Value of the Immature Platelet Fraction (IPF) in Cell Recovery Document Number 10-1143 12/2010 [employer] The Role of the Imm ature [...] Organization Address City/State/[place] [address] (ABNORMAL) Hemoglobin and Hematocrit, blood (07/07/2017 4:55 PM EST) P athologist Signature Hemoglobin 9.1 (L) 13.7 - 16.5 [facility] gm/dL [facility] Comment: This result has been [...] Organization Address City/State/[place] [address] (ABNORMAL) BLOOD GAS 2 ARTERIAL (07/07/2017 4:38 PM EST) Analysis Performed At Patho logist Time Signature pH Art 7.37 7.35 - [facility] 7.45 [facility] pCO2 Art 44 35 - 45 [facility] mmHg [facility] pO2 Art 322 (H) 85 - 104 [facility] LABORATORY HCO3 Art 24.9 20.0 - [facility] 26.[address] [facility] mmol/L [facility] BE Art -0.4 -3.0 - 3.0 [facility] mmol/L [facility] Hgb Blood Gas 10.1 (L) 13.7 - [facility] 16.5 gm/dL [facility] O2HB Art 98.7 (H) 94.0 - [facility] 97.0 % [facility] COHB Art 0.1 % [facility] Comment: Nonsmokers: 0.5-1.5% COHB Smokers: Variable, but usually less than 10% Toxic: 20-30% COHB Lethal: Greater than 60% COHB METHB Art 0.3 <=1.5 % [facility] Na Whole Blood 130 (L) 135 - 145 mmol/L [facility] K Whole Blood 5.7 (H) 3.5 - 5.0 mmol/L [facility] Comment: Please note: Patients with WBC >100,000 may have falsely elevated Potassium levels. Contact the Clinical Chemistry L aboratory if there are any questions. ICa Whole Blood 0.89 (Critical) 1.15 - 1.33 mmol/L [facility] Comment: Noted by lanolin plant operator. Note: ??Total bilirubin higher than 20 m g/dL may lead to falsely low ionized calcium. CL Whole Blood 101 98 - 107 mmol/L [facility] Gluc Whole Bld 295 (H) 65 - 199 mg/dL [facility] Comment: Diabetes: >=200 mg/dL plus symp toms. Lactate WB 1.7 0.5 - 2.2 mmol/L [facility] Specimen Anatomical Collection Method Collection Time Receive d Time (Source) Location / / Volume Laterality Blood specimen 07/07/2017 4:38 PM 017 4:38 (specimen) EST PM EST Daphne Shahid MD CHEMISTRY ORDERABLES Performing Organization Address City/State/[place] [address] (ABNORMAL) BLOOD GAS 2 VENOUS (07/07/2017 4:06 PM EST) Analysis Performed At Patho logist Time Signature pH Cody 7.31 (L) 7.32 - [facility] 7.42 [facility] pCO2 Cody 47 41 - 51 [facility] LABORATORY pO2 Cody 53 (H) 25 - 40 [facility] LABORATORY HCO3 [place] 22.7 mmol/L [facility] BE Cody -3.7 mmol/L [facility] Hgb Blood Gas 10.2 (L) 13.7 - [facility] 16.5 gm/dL [facility] O2HB [place] 81.0 % [facility] COHB Cody 1.0 % [facility] Comment: Nonsmokers: 0.5-1.5% COHB Smokers: Variable, but usually less than 10% Toxic: 20-30% COHB Lethal: Greater than 60% COHB METHB Cody 0.3 <=1.5 % [facility] Na Whole Blood 132 (L) 135 - 145 mmol/L [facility] K Whole Blood 5.3 (H) 3.5 - 5.0 mmol/L [facility] Comment: Please note: Patients with WBC >100,000 may have falsely elevated Potassium levels. Contact the Clinical Chemistry L aboratory if there are any questions. ICa Whole Blood 0.90 (Critical) 1.15 - 1.33 mmol/L [facility] Comment: Noted by lanolin plant operator. Note: ??Total bilirubin higher than 20 m g/dL may lead to falsely low ionized calcium. CL Whole Blood 100 98 - 107 mmol/L [facility] Gluc Whole Bld 231 (H) 65 - 199 mg/dL [facility] Comment: Diabetes: >=200 mg/dL plus symp toms Lactate WB 1.1 0.5 - 2.2 mmol/L [facility] BGas Source Venous [facility] Specimen Anatomical Collection Method Collection Time Receive d Time (Source) Location / / Volume Laterality Blood specimen 07/07/2017 4:06 PM 017 4:06 (specimen) EST PM EST Daphne Shahid MD CHEMISTRY ORDERABLES Performing Organization Address City/State/[place] [address] (ABNORMAL) BLOOD GAS 2 ARTERIAL (07/07/2017 4:05 PM EST) Analysis Performed At Patho logist Time Signature pH Art 7.36 7.35 - [facility] 7.45 [facility] pCO2 Art 40 35 - 45 [facility] LABORATORY pO2 Art 282 (H) 85 - 104 [facility] LABORATORY HCO3 Art 22.1 20.0 - [facility] 26.[address] [facility] mmol/L [facility] LABORATORY BE Art -3.4 (L) -3.0 - 3.0 [facility] mmol/L [facility] LABORATORY Hgb Blood Gas 10.2 (L) 13.7 - [facility] 16.5 gm/dL [facility] LABORATORY O2HB Art 98.4 (H) 94.0 - [facility] 97.0 % [facility] LABORATORY COHB Art 0.3 % [facility] LABORATORY Comment: Nonsmokers: 0.5-1.5% COHB Smokers: Variable, but usually less than 10% Toxic: 20-30% COHB Lethal: Greater than 60% COHB METHB Art 0.3 <=1.5 % [facility] LABORATORY Na Whole Blood 131 (L) 135 - 145 mmol/L [facility] LABORATORY K Whole Blood 5.4 (H) 3.5 - 5.0 mmol/L [facility] LABORATORY Comment: Please note: Patients with WBC >100,000 may have falsely elevated Potassium levels. Contact the Clinical Chemistry L aboratory if there are any questions. ICa Whole Blood 0.86 (Critical) 1.15 - 1.33 mmol/L [facility] LABORATORY Comment: Noted by lanolin plant operator. Note: ??Total bilirubin higher than 20 m g/dL may lead to falsely low ionized calcium. CL Whole Blood 101 98 - 107 mmol/L [facility] LABORATORY Gluc Whole Bld 260 (H) 65 - 199 mg/dL [facility] LABORATORY Comment: Diabetes: >=200 mg/dL plus symp toms. Lactate WB 1.4 0.5 - 2.2 mmol/L [facility] LABORATORY Specimen Anatomical Collection Method Collection Time Receive d Time (Source) Location / / Volume Laterality Blood specimen 07/07/2017 4:05 PM 017 4:05 (specimen) EST PM EST Daphne Shahid MD CHEMISTRY ORDERABLES Performing Organization Address City/State/[place] [address] (ABNORMAL) BLOOD GAS 2 ARTERIAL (07/07/2017 2:29 PM EST) Analysis Performed At Patho logist Time Signature pH Art 7.43 7.35 - [facility] 7.45 [facility] LABORATORY pCO2 Art 36 35 - 45 [facility] mmHg [facility] LABORATORY pO2 Art 221 (H) 85 - 104 [facility] mmHg [facility] LABORATORY HCO3 Art 23.2 20.0 - [facility] 26.[address] [facility] mmol/L [facility] LABORATORY BE Art -1.2 -3.0 - 3.0 [facility] mmol/L [facility] LABORATORY Hgb Blood Gas 13.9 13.7 - [facility] 16.5 gm/dL [facility] LABORATORY O2HB Art 97.8 (H) 94.0 - [facility] 97.0 % [facility] LABORATORY COHB Art 1.1 % [facility] LABORATORY Comment: Nonsmokers: 0.5-1.5% COHB Smokers: Variable, but usually less than 10% Toxic: 20-30% COHB Lethal: Greater than 60% COHB METHB Art 0.3 <=1.5 % [facility] LABORATORY Na Whole Blood 139 [...] Lactate WB 1.5 0.5 - 2.2 mmol/L [facility] LABORATORY Specimen Anatomical Collection Method Collection Time Receive d Time (Source) Location / / Volume Laterality Blood specimen 07/07/2017 2:29 PM 017 2:29 (specimen) EST PM EST Daphne Shahid MD CHEMISTRY ORDERABLES Performing Organization Address City/[facility] [place] [address] Prepare Coag Factors (Non-Hemophilia) (07/07/2017 1:25 PM EST) P athologist Signature Dispensed? Yes [facility] LABORATORY Specimen Anatomical Collection Method Collection Time Receive d Time (Source) Location / / Volume Laterality Blood specimen 07/07/2017 1:25 PM 017 1:21 (specimen) EST PM EST Daphne Shahid MD BLOOD BANK ORDERABLES Performing Organization Address City/[facility]/[place] [address] Prepare RBC (07/07/2017 1:10 PM EST) P athologist Signature Dispensed? Yes [facility] LABORATORY Specimen Anatomical Collection Method Collection Time Receive d Time (Source) Location / / Volume Laterality Blood specimen 07/07/2017 1:10 PM 017 1:05 (specimen) EST PM EST Daphne Shahid MD BLOOD BANK ORDERABLES Performing Organization Address City/[facility]/ZIP Code Phon e Number [address] POCT Glucose (07/07/2017 11:56 AM EST) P athologist Signature POC Glucose 188 65 - 199 [place] mg/dL [facility] LABORATORY Comment: Supplemental ranges: <140 mg/dL before meals <180 mg/dL all other times of the day Specimen Anatomical Collection Method Collection Time Receive d Time (Source) Location / / Volume Laterality Blood specimen 07/07/2017 11:56 7 (specimen) AM EST 11:56 AM EST Daphne Shahid MD POINT OF CARE TEST ORDERABLE S Performing Organization Address City/[facility]/ZIP Code Phon e Number [address] POCT Glucose (07/07/2017 11:05 AM EST) P athologist Signature POC Glucose 168 65 - 199 [facility] LABORATORY Comment: Supplemental ranges: <140 mg/dL before meals <180 mg/dL all other times of the day Specimen Anatomical Collection Method Collection Time Receive d Time (Source) Location / / Volume Laterality Blood specimen 07/07/2017 11:05 7 (specimen) AM EST 11:05 AM EST Daphne Shahid MD POINT OF CARE TEST ORDERABLE S Performing Organization Address City/State/ZIP Code Phon e Number [address] POCT Glucose (07/07/2017 10:02 AM EST) P athologist Signature POC Glucose 191 65 - 199 [facility] LABORATORY Comment: Supplemental ranges: <140 mg/dL before meals <180 mg/dL all other times of the day Specimen Anatomical Collection Method Collection Time Receive d Time (Source) Location / / Volume Laterality Blood specimen 07/07/2017 10:02 7 (specimen) AM EST 10:02 AM EST Daphne Shahid MD POINT OF CARE TEST ORDERABLE S Performing Organization Address City/[facility]/ZIP Code Phon e Number [address] POCT Glucose (07/07/2017 7:53 AM EST) P athologist Signature POC Glucose 178 65 - 199 [place] mg/dL [facility] LABORATORY Comment: Supplemental ranges: <140 mg/dL before meals <180 mg/dL all other times of the day Specimen Anatomical Collection Method Collection Time Receive d Time (Source) Location / / Volume Laterality Blood specimen 07/07/2017 7:53 AM 017 7:53 (specimen) EST AM EST Daphne Shahid MD POINT OF CARE TEST ORDERABLE S Performing Organization Address City/[facility]/ZIP Code Phon e Number [address] POCT Glucose (07/07/2017 7:03 AM EST) P athologist Signature POC Glucose 188 65 - 199 [place] mg/dL [facility] LABORATORY Comment: Supplemental ranges: <140 mg/dL before meals <180 mg/dL all other times of the day Specimen Anatomical Collection Method Collection Time Receive d Time (Source) Location / / Volume Laterality Blood specimen 07/07/2017 7:03 AM 017 7:03 (specimen) EST AM EST Daphne Shahid MD POINT OF CARE TEST ORDERABLE S Performing Organization Address City/[facility]/[place] [address] (ABNORMAL) POCT Glucose (07/07/2017 6:17 AM EST) P athologist Signature POC Glucose 207 (H) 65 - 199 [facility] SU mg/dL [facility] LABORATORY Comment: Supplemental ranges: <140 mg/dL before meals <180 mg/dL all other times of the day Specimen Anatomical Collection Method Collection Time Receive d Time (Source) Location / / Volume Laterality Blood specimen 07/07/2017 6:17 AM 017 6:17 (specimen) EST AM EST Daphne Shhaid MD POINT OF CARE TEST ORDERABLE S Performing Organization Address City/State/ZIP Code Phon e Number [address] Differential, Automated (07/07/2017 5:15 AM EST) P athologist Signature Neutrophils % 69.7 % [facility] LABORATORY Neutr Abs (ANC) 5.32 1.70 - [facility] 6.[address] [facility] x10(3)/[facility] LABORATORY Lymphocytes % 16.3 % [facility] LABORATORY Lymphocytes Abs 1.2 0.9 - 3.2 [facility] x10(3)/[facility] LABORATORY Monocytes % 10.5 % [facility] LABORATORY Monocyte Abs 0.8 0.3 - 0.9 [facility] x10(3)/[facility] LABORATORY Eosinophils % 2.5 % [facility] LABORATORY Eosinophils Abs 0.2 0.0 - 0.4 [facility] x10(3)[facility] LABORATORY Basophils % 0.7 % [facility] LABORATORY Basophils Abs 0.0 0.0 - 0.1 [facility] x10(3)/[facility] LABORATORY Immature Gran % 0.30 % BAR[facility] [...] Melisa Gran Abs 0.02 0.00 - 0.04 x10(3)/[facility] Y [facility] LABORATORY Specimen Anatomical Collection Method Collection Time Receive d Time (Source) Location / / Volume Laterality Blood specimen 07/07/2017 5:15 AM 017 5:34 (specimen) EST AM EST Resulting Agency Comment Spec In Lab Daphne Shahid MD HEMATOLOGY ORDERABLES Performing Organization Address City/State/ZIP Code Phon e Number [address] (ABNORMAL) Hemogram (07/07/2017 5:15 AM EST) Analysis Performed At Patho logist Time Signature WBC 7.6 4.0 - 9.5 [facility] x10(3)/[facility] LABORATORY RBC 4.82 4.58 - [place] [facility] [address] [facility] x10(6)/[facility] LABORATORY Hemoglobin 14.4 13.7 - [facility] 16.5 gm/dL [facility] LABORATORY Hematocrit 42.1 40.5 - [facility] 48.5 % [facility] LABORATORY MCV 87.3 82.9 - [facility] 93.1 [facility] LABORATORY MCH 29.9 27.5 - [facility] 32.1 pg [facility] LABORATORY MCHC 34.2 32.0 - [facility] 35.7 gm/dL [facility] LABORATORY Platelets 188 145 - 357 [facility] x10(3)/[facility] LABORATORY RDWSD 45.1 (H) 36.0 - [facility] 45.0 [facility] LABORATORY RDWCV 14.3 (H) 11.4 - [facility] 13.8 % [facility] LABORATORY MPV 9.4 7.6 - 12.9 [facility] LABORATORY nRBC % Auto 0.0 % [facility] LABORATORY nRBC Abs Auto 0.000 0.000 - [facility] [address] [facility] x10(3)/[facility] LABORATORY Specimen Anatomical Collection Method Collection Time Receive d Time (Source) Location / / Volume Laterality Blood specimen 07/07/2017 5:15 AM 017 5:34 (specimen) EST AM EST Resulting Agency Comment Spec In Lab Daphne Shahid MD HEMATOLOGY ORDERABLES Performing Organization Address City/State/[place] [address] (ABNORMAL) APTT (07/07/2017 5:15 AM EST) P athologist Signature PTT 69 (H) 25 - 35 sec [facility] LABORATORY Comment: The recommended therapeutic range for fu ll dose, unfractionated heparin at [facility] is 80 ? 114 seconds. The use [...] Shahid MD HEMATOLOGY ORDERABLES Performing Organization Address City/[facility]/ZIP Code Phon e Number [address] Magnesium (07/07/2017 5:15 AM EST) athologist Signature Magnesium 0.94 0.69 - 1.07 [facility] mmol/L [facility] LABORATORY Specimen Anatomical Collection Method Collection Time Receive d Time (Source) Location / / Volume Laterality Blood specimen 07/07/2017 5:15 AM 017 5:34 (specimen) EST AM EST Resulting Agency Comment Spec In Lab Daphne Shahid MD CHEMISTRY ORDERABLES Performing Organization Address City/[facility]/[place] [address] (ABNORMAL) Basic Metabolic Panel (non-fasting) (07/07/2017 5:15 AM EST) athologist Signature Glucose Lvl 203 (H) 65 - 199 [facility] mg/dL [facility] LABORATORY Comment: Diabetes: >=200 mg/dL plus symp toms BUN 15 10 - 20 mg/dL [facility] LABORATORY Creatinine 1.09 0.80 - 1.50 mg/dL [facility] LABORATORY Sodium 142 135 - 145 mmol/L [facility] LABORATORY Potassium 4.4 3.5 - 5.0 mmol/L [facility] LABORATORY Calcium 8.6 8.5 - 10.5 mg/dL [facility] LABORATORY Estimated GFR >60 >=60 [facility] LABORATORY Comment: The reported eGFR should be multiplied b y 1.2 for patients. The MDRD is not an appropriate measure o f renal function for patients with body mass extremes or in patients with acute kidney failure. [email or web address]. Hilburn/DHnkdep [email or web address]. Hilburn/DHMCnkf Specimen Anatomical Collection Method Collection Time Receive d Time (Source) Location / / Volume Laterality Blood specimen 07/07/2017 5:15 AM 017 5:34 (specimen) EST AM EST Resulting Agency Comment Spec In Lab Daphne Shahid MD CHEMISTRY ORDERABLES Performing Organization Address City/State/ZIP Code Phon e Number [place] [id number] HOSPITAL LABORATORY Drive (ABNORMAL) Cardiac Enzymes (LEB/CGP) (07/07/2017 5:15 AM EST) P athologist Signature Troponin-T 2.07 (H) 0.00 - [facility] 0.00 ng/mL [facility] LABORATORY Comment: The 99th percentile for [...] additional sample may be indicated. Reference: Third [place] Definition of Myocardial Infarction. Journal of the [place] [employer] 2012;60:1581-98 CK, Total 88 0 - 200 unit/L [facility] LABORATORY Specimen Anatomical Collection Method Collection Time Receive d Time (Source) Location / / Volume Laterality Blood specimen 07/07/2017 5:15 AM 017 5:34 (specimen) EST AM EST Resulting Agency Comment Spec In Lab Daphne Shahid MD CHEMISTRY ORDERABLES Performing Organization Address City/[facility]/ZIP Code Phon e Number [address] POCT Glucose (07/07/2017 5:01 AM EST) P athologist Signature POC Glucose 182 65 - 199 [facility] mg/dL [facility] LABORATORY Comment: Supplemental ranges: <140 mg/dL before meals <180 mg/dL all other times of the day Specimen Anatomical Collection Method Collection Time Receive d Time (Source) Location / / Volume Laterality Blood specimen 07/07/2017 5:01 AM 017 5:01 (specimen) EST AM EST Daphne Shahid MD POINT OF CARE TEST ORDERABLE S Performing Organization Address City/[facility]/ZIP Code Phon e Number [address] POCT Glucose (07/07/2017 4:08 AM EST) P athologist Signature POC Glucose 199 65 - 199 [facility]dL [facility] LABOR[facility] Comment: Supplemental ranges: <140 mg/dL before meals <180 mg/dL all other times of the day Specimen Anatomical Collection Method Collection Time Receive d Time (Source) Location / / Volume Laterality Blood specimen 07/07/2017 4:08 AM 017 4:08 (specimen) EST AM EST Daphne Shahid MD POINT OF CARE TEST ORDERABLE S Performing Organization Address City/[facility]/ZIP Code Phon e Number [address] POCT Glucose (07/07/2017 3:03 AM EST) athologist Signature POC Glucose 188 65 - 199 [place] mg/dL [facility] LABORATORY Comment: Supplemental ranges: <140 mg/dL before meals <180 mg/dL all other times of the day Specimen Anatomical Collection Method Collection Time Receive d Time (Source) Location / / Volume Laterality Blood specimen 07/07/2017 3:03 AM 017 3:03 (specimen) EST AM EST Daphne Shahid MD POINT OF CARE TEST ORDERABLE S Performing Organization Address City/State/[place] [address] (ABNORMAL) POCT Glucose (07/07/2017 2:08 AM EST) athologist Signature POC Glucose 200 (H) 65 - 199 [facility]dL [facility] LABORATORY Comment: Supplemental ranges: <140 mg/dL before meals <180 mg/dL all other times of the day Specimen Anatomical Collection Method Collection Time Receive d Time (Source) Location / / Volume Laterality Blood specimen 07/07/2017 2:08 AM 017 2:08 (specimen) EST AM EST Daphne Shahid MD POINT OF CARE TEST ORDERABLE S Performing Organization Address City/State/[place] [address] (ABNORMAL) POCT Glucose (07/07/2017 1:31 AM EST) athologist Signature POC Glucose 209 (H) 65 - 199 [place] mg/dL [facility] LABOR[facility]ORY Comment: Supplemental ranges: <140 mg/dL before meals <180 mg/dL all other times of the day Specimen Anatomical Collection Method Collection Time Receive d Time (Source) Location / / Volume Laterality Blood specimen 07/07/2017 1:31 AM 017 1:31 (specimen) EST AM EST Daphne Shahid MD POINT OF CARE TEST ORDERABLE S Performing Organization Address City/State/[place] [address] XR Chest PA or [...] Signature POC Glucose 161 65 - 199 [facility] mg/dL [facility] LABORATORY Comment: Supplemental ranges: <140 mg/dL before meals <180 mg/dL all other times of the day Specimen Anatomical Collection Method Collection Time Receive d Time (Source) Location / / Volume Laterality Blood specimen 07/07/2017 12:07 7 (specimen) AM EST 12:07 AM EST Daphne Shahid MD POINT OF CARE TEST ORDERABLE S Performing Organization Address City/State/[place] [address] (ABNORMAL) APTT (07/07/2017 12:00 AM EST) athologist Signature PTT 103 (H) 25 - 35 sec [facility] LABORATORY Comment: The recommended therapeutic range for fu ll dose, unfractionated heparin at [facility] is 80 ? 114 seconds. The use [...] Shahid MD HEMATOLOGY ORDERABLES Performing Organization Address City/[facility]/ZIP Code Phon e Number [address] POCT Glucose (07/06/2017 9:55 PM EST) athologist Signature POC Glucose 109 65 - 199 [facility]/dL [facility] LAB[facility] Comment: Supplemental ranges: <140 mg/dL before meals <180 mg/dL all other times of the day Specimen Anatomical Collection Method Collection Time Receive d Time (Source) Location / / Volume Laterality Blood specimen 07/06/2017 9:55 PM 017 9:55 (specimen) EST PM EST Daphne Shahid MD POINT OF CARE TEST ORDERABLE S Performing Organization Address City/[facility]/ZIP Code Phon e Number [address] POCT Glucose (07/06/2017 9:04 PM EST) athologist Signature POC Glucose 120 65 - 199 [facility]dL [facility] Comment: Supplemental ranges: <140 mg/dL before meals <180 mg/dL all other times of the day Specimen Anatomical Collection Method Collection Time Receive d Time (Source) Location / / Volume Laterality Blood specimen 07/06/2017 9:04 PM 017 9:04 (specimen) EST PM EST Daphne Shahid MD POINT OF CARE TEST ORDERABLE S Performing Organization Address City/[facility]/ZIP Code Phon e [place] [address] POCT Glucose (07/06/2017 7:45 PM EST) athologist Signature POC Glucose 158 65 - 199 [facility] mg/dL [facility] LAB[facility] Comment: Supplemental ranges: <140 mg/dL before meals <180 mg/dL all other times of the day Specimen Anatomical Collection Method Collection Time Receive d Time (Source) Location / / Volume Laterality Blood specimen 07/06/2017 7:45 PM 017 7:45 (specimen) EST PM EST Daphne Shahid MD POINT OF CARE TEST ORDERABLE S Performing Organization Address City/[facility]/[place] [address] Potassium (07/06/2017 7:40 PM EST) athologist [facility] Potassium 3.9 3.5 - 5.0 [facility] mmol/L [facility] LABOR[facility] Comment: Please note: ??Patients with [...] Organization Address City/State/[place] [address] (ABNORMAL) Cardiac Enzymes (LEB/CGP) (07/06/2017 7:40 PM EST) athologist Signature Troponin-T 2.27 (H) 0.00 - [place] [facility] [facility].[place] ng/mL [facility] Comment: The 99th percentile for [...] additional sample may be indicated. Reference: Third [place] Definition of Myocardial Infarction. Journal of the [place] [employer] 2012;60:1581-98 CK, Total 93 0 - 200 unit/L [facility] LABORATORY Specimen Anatomical Collection Method Collection Time Receive d Time (Source) Location / / Volume Laterality Blood specimen 07/06/2017 7:40 PM 017 7:52 (specimen) EST PM EST Resulting Agency Comment Spec In Lab Daphne Shahid MD CHEMISTRY ORDERABLES Performing Organization Address City/State/[place] [address] (ABNORMAL) POCT Glucose (07/06/2017 7:13 PM EST) P athologist Signature POC Glucose 200 (H) 65 - 199 [facility] mg/dL [facility] Comment: Supplemental ranges: <140 mg/dL before meals <180 mg/dL all other times of the day Specimen Anatomical Collection Method Collection Time Receive d Time (Source) Location / / Volume Laterality Blood specimen 07/06/2017 7:13 PM 017 7:13 (specimen) EST PM EST Daphne Shahid MD POINT OF CARE TEST ORDERABLE S Performing Organization Address City/State/[place] [address] (ABNORMAL) APTT (07/06/2017 6:15 PM EST) athologist Signature PTT 94 (H) 25 - 35 sec [facility] LABOR[facility] Comment: The recommended therapeutic range for fu ll dose, unfractionated heparin at [facility] is 80 ? 114 seconds. The use [...] Shahid MD HEMATOLOGY ORDERABLES Performing Organization Address City/[facility]/ZIP Code Phon e Number [address] (ABNORMAL) POCT Glucose (07/06/2017 6:03 PM EST) athologist Signature POC Glucose 236 (H) 65 - 199 [facility] mg/dL [facility] Comment: Supplemental ranges: <140 mg/dL before meals <180 mg/dL all other times of the day Specimen Anatomical Collection Method Collection Time Receive d Time (Source) Location / / Volume Laterality Blood specimen 07/06/2017 6:03 PM 017 6:03 (specimen) EST PM EST Daphne Shahid MD POINT OF CARE TEST ORDERABLE S Performing Organization Address City/[facility]/[place] [address] (ABNORMAL) POCT Glucose (07/06/2017 5:01 PM EST) athologist Signature POC Glucose 235 (H) 65 - 199 [facility] mg/dL [facility] Comment: Supplemental ranges: <140 mg/dL before meals <180 mg/dL all other times of the day Specimen Anatomical Collection Method Collection Time Receive d Time (Source) Location / / Volume Laterality Blood specimen 07/06/2017 5:01 PM 017 5:01 (specimen) EST PM EST Daphne Shahid MD POINT OF CARE TEST ORDERABLE S Performing Organization Address City/[facility]/[place] [address] (ABNORMAL) POCT Glucose (07/06/2017 4:06 PM EST) athologist Signature POC Glucose 202 (H) 65 - 199 [facility] mg/dL [facility] Comment: Supplemental ranges: <140 mg/dL before meals <180 mg/dL all other times of the day Specimen Anatomical Collection Method Collection Time Receive d Time (Source) Location / / Volume Laterality Blood specimen 07/06/2017 4:06 PM 017 4:06 (specimen) EST PM EST Daphne Shahid MD POINT OF CARE TEST ORDERABLE S Performing Organization Address City/State/[place] [address] POCT Glucose (07/06/2017 2:59 PM EST) athologist Signature POC Glucose 178 65 - 199 [facility] mg/dL [facility] Comment: Supplemental ranges: <140 mg/dL before meals <180 mg/dL all other times of the day Specimen Anatomical Collection Method Collection Time Receive d Time (Source) Location / / Volume Laterality Blood specimen 07/06/2017 2:59 PM 017 2:59 (specimen) EST PM EST Daphne Shahid MD POINT OF CARE TEST ORDERABLE S Performing Organization Address City/State/[place] [address] (ABNORMAL) Cardiac Enzymes (LEB/CGP) (07/06/2017 2:10 PM EST) athologist Signature Troponin-T 2.34 (H) 0.00 [facility] ng/mL [facility] Comment: The 99th percentile for [...] additional sample may be indicated. Reference: Third [place] Definition of Myocardial Infarction. Journal of the [place] [employer] 2012;60:1581-98 CK, Total 101 0 - 200 unit/L [facility] LABOR[facility] Specimen Anatomical Collection Method Collection Time Receive d Time (Source) Location / / Volume Laterality Blood specimen 07/06/2017 2:10 PM 017 2:26 (specimen) EST PM EST Resulting Agency Comment Spec In Lab Daphne Shahid MD CHEMISTRY ORDERABLES Performing Organization Address City/[facility]/ZIP Code Phon e Number [address] POCT Glucose (07/06/2017 2:08 PM EST) athologist Signature POC Glucose 192 65 - 199 [facility] mg/dL [facility] Comment: Supplemental ranges: <140 mg/dL before meals <180 mg/dL all other times of the day Specimen Anatomical Collection Method Collection Time Receive d Time (Source) Location / / Volume Laterality Blood specimen 07/06/2017 2:08 PM 017 2:08 (specimen) EST PM EST Daphne Shahid MD POINT OF CARE TEST ORDERABLE S Performing Organization Address City/[facility]/ZIP [facility] Phon e Number [address] POCT Glucose (07/06/2017 1:04 PM EST) athologist Signature POC Glucose 162 65 - 199 [facility] mg/dL [facility] Comment: Supplemental ranges: <140 mg/dL before meals <180 mg/dL all other times of the day Specimen Anatomical Collection Method Collection Time Receive d Time (Source) Location / / Volume Laterality Blood specimen 07/06/2017 1:04 PM 017 1:04 (specimen) EST PM EST Daphne Shahid MD POINT OF CARE TEST ORDERABLE S Performing Organization Address City/[facility]/ZIP Code Phon e Number [address] POCT Glucose (07/06/2017 12:05 PM EST) P athologist Signature POC Glucose 196 65 - 199 [facility] mg/dL [facility] Comment: Supplemental ranges: <140 mg/dL before meals <180 mg/dL all other times of the day Specimen Anatomical Collection Method Collection Time Receive d Time (Source) Location / / Volume Laterality Blood specimen 07/06/2017 12:05 7 (specimen) PM EST 12:05 PM EST Daphne Shahid MD POINT OF CARE TEST ORDERABLE S Performing Organization Address City/[facility]/[place] [address] EKG 12 Lead (07/06/2017 12:00 PM EST) Component Value Ref Range Test Analysis Performed Pathologis t Method Time At Signature Ventricular rate 91 BPM MUSE SYSTEM Atrial Rate 91 BPM MUSE SYSTEM P-R Interval 140 ms MUSE SYSTEM QRS Duration 94 ms MUSE SYSTEM Q-T Interval 394 ms MUSE SYSTEM QTC Calculated 484 ms MUSE SYSTEM (Bezet) Calculated P [place] 36 degrees MUSE SYSTEM Calculated R [place] -19 degrees MUSE SYSTEM Calculated T [place] 104 degrees MUSE SYSTEM INTERPRETATION Normal sinus rhythm MUSE SYSTEM 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) ST & T wave abnormality, consider lateral ischemia Abnormal ECG When compared with ECG of 05-JUL-2017 20:39, No significant change was found Confirmed by MD Verma Gregory A. ([id number]) on 07/06/2017 5:07:33 PM Specimen Anatomical Collection Method Collection Time Receive d Time (Source) Location / / Volume Laterality 07/06/2017 12:00 07/06/2017 5:07 PM EST PM EST Daphne Shahid MD ECG ORDERABLES Performing Organization Address City/State/ZIP Code Phon e Number MUSE SYSTEM ABORH Recheck Status (07/06/2017 12:00 PM EST) [facility] Method Time Signature ABORH Type Completed [facility] LABORATORY Specimen Anatomical Collection Method Collection Time Receive d Time (Source) Location / / Volume Laterality Blood specimen 07/06/2017 12:00 7 (specimen) PM EST 12:24 PM EST Resulting Agency Comment Spec In Lab Daphne Shahid MD BLOOD BANK ORDERABLES Performing Organization Address City/State/ZIP Code Phon e Number [address] Antibody screen (07/06/2017 12:00 PM EST) [facility] Method [employer] Signature Ab Screen Negative [facility] LABORATORY Expires at 07/09/2017 [facility] [id number] on: [facility] Specimen Anatomical Collection Method Collection Time Receive d Time (Source) Location / / Volume Laterality Blood specimen 07/06/2017 12:00 7 (specimen) PM EST 12:24 PM EST Resulting Agency Comment Spec In Lab Daphne Shahid MD BLOOD BANK ORDERABLES Performing Organization Address City/State/ZIP Code Phon e Number [address] ABO/Rh Typing (07/06/2017 12:00 [...] Organization Address City/State/[place] [address] Prothrombin Time (07/06/2017 11:24 AM EST) P athologist Signature PT 13.3 11.8 - 14.0 [facility] LABORATORY INR 1.0 0.9 - 1.1 [facility] [...] Shahid MD HEMATOLOGY ORDERABLES Performing Organization Address City/[facility]/ZIP Code Phon e Number [address] (ABNORMAL) APTT (07/06/2017 11:24 AM EST) P athologist Signature PTT 52 (H) 25 - 35 sec [facility] Comment: The recommended therapeutic range for fu ll dose, unfractionated heparin at [facility] is 80 ? 114 seconds. The use [...] Shahid MD HEMATOLOGY ORDERABLES Performing Organization Address City/[facility]/[place] [address] POCT Glucose (07/06/2017 11:02 AM EST) P athologist Signature POC Glucose 187 65 - 199 [facility] mg/dL [facility] Comment: Supplemental ranges: <140 mg/dL before meals <180 mg/dL all other times of the day Specimen Anatomical Collection Method Collection Time Receive d Time (Source) Location / / Volume Laterality Blood specimen 07/06/2017 11:02 7 (specimen) AM EST 11:02 AM EST Daphne Shahid MD POINT OF CARE TEST ORDERABLE S Performing Organization Address City/State/ZIP Code Phon e Number [address] POCT Glucose (07/06/2017 10:18 AM EST) athologist Signature POC Glucose 193 65 - 199 [place] mg/dL [facility] Comment: Supplemental ranges: <140 mg/dL before meals <180 mg/dL all other times of the day Specimen Anatomical Collection Method Collection Time Receive d Time (Source) Location / / Volume Laterality Blood specimen 07/06/2017 10:18 7 (specimen) AM EST 10:18 AM EST Daphne Shahid MD POINT OF CARE TEST ORDERABLE S Performing Organization Address City/[facility]/ZIP Code Phon e Number [address] POCT Glucose (07/06/2017 9:25 AM EST) athologist Signature POC Glucose 182 65 - 199 [facility]/dL [facility] Comment: Supplemental ranges: <140 mg/dL before meals <180 mg/dL all other times of the day Specimen Anatomical Collection Method Collection Time Receive d Time (Source) Location / / Volume Laterality Blood specimen 07/06/2017 9:25 AM 017 9:25 (specimen) EST AM EST Daphne Shahid MD POINT OF CARE TEST ORDERABLE S Performing Organization Address City/[facility]/[place] [address] (ABNORMAL) Cardiac Enzymes (LEB/CGP) (07/06/2017 8:10 AM EST) athologist Signature Troponin-T 2.26 (H) 0.00 - [facility] ng/mL [facility] Comment: The 99th percentile for [...] additional sample may be indicated. Reference: Third [place] Definition of Myocardial Infarction. Journal of the [place] [employer] 2012;60:1581-98 CK, Total 124 0 - 200 unit/L [facility] Specimen Anatomical Collection Method Collection Time Receive d Time (Source) Location / / Volume Laterality Blood specimen 07/06/2017 8:10 AM 017 8:23 (specimen) EST AM EST Resulting Agency Comment Spec In Lab Daphne Shahid MD CHEMISTRY ORDERABLES Performing Organization Address City/State/ZIP Code Phon e Number [address] Magnesium (07/06/2017 8:10 AM EST) P athologist Signature Magnesium 0.84 0.69 - 1.07 [facility] mmol/L [facility] Specimen Anatomical Collection Method Collection Time Receive d Time (Source) Location / / Volume Laterality Blood specimen 07/06/2017 8:10 AM 017 8:21 (specimen) EST AM EST Resulting Agency Comment Spec In Lab Daphne Shahid MD CHEMISTRY ORDERABLES Performing Organization Address City/[facility]/ZIP Code Phon e Number [address] (ABNORMAL) Basic Metabolic Panel (non-fasting) (07/06/2017 8:10 AM EST) athologist Signature Glucose Lvl 199 65 - 199 [facility] mg/dL [facility] Comment: Diabetes: >=200 mg/dL plus symp toms BUN 16 10 - 20 mg/dL [facility] Creatinine 1.04 0.80 - 1.50 [facility] Estimated GFR >60 >=60 [facility] Comment: The reported eGFR should be multiplied b y 1.2 for patients. The MDRD is not an appropriate measure o f renal function for patients with body mass extremes or in patients with acute kidney failure. http://J. Hilburn/DHnkdep http://J. Hilburn/DHMCnkf Specimen Anatomical Collection Method Collection Time Receive d Time (Source) Location / / Volume Laterality Blood specimen 07/06/2017 8:10 AM 017 8:21 (specimen) EST AM EST Resulting Agency Comment Spec In Lab Daphne Shahid MD CHEMISTRY ORDERABLES Performing Organization Address City/State/Z[place] [address] POCT Glucose (07/06/2017 7:34 AM EST) P athologist Signature POC Glucose 198 65 - 199 [facility] mg/dL [facility] Comment: Supplemental ranges: <140 mg/dL before meals <180 mg/dL all other times of the day Specimen Anatomical Collection Method Collection Time Receive d Time (Source) Location / / Volume Laterality Blood specimen 07/06/2017 7:34 AM 017 7:34 (specimen) EST AM EST Daphne Shahid MD POINT OF CARE TEST ORDERABLE S Performing Organization Address City/State/ZIP Code Phon e Number [address] POCT Glucose (07/06/2017 7:03 AM EST) P athologist Signature POC Glucose 181 65 - 199 [facility] mg/dL [facility] Comment: Supplemental ranges: <140 mg/dL before meals <180 mg/dL all other times of the day Specimen Anatomical Collection Method Collection Time Receive d Time (Source) Location / / Volume Laterality Blood specimen 07/06/2017 7:03 AM 017 7:03 (specimen) EST AM EST Daphne Shahid MD POINT OF CARE TEST ORDERABLE S Performing Organization Address City/State/[place] [address] XR Chest PA or [...] Signature POC Glucose 172 65 - 199 [facility] mg/dL [facility] Comment: Supplemental ranges: <140 mg/dL before meals <180 mg/dL all other times of the day Specimen Anatomical Collection Method Collection Time Receive d Time (Source) Location / / Volume Laterality Blood specimen 07/06/2017 6:21 AM 017 6:21 (specimen) EST AM EST Daphne Shahid MD POINT OF CARE TEST ORDERABLE S Performing Organization Address City/[facility]/[place] [address] POCT Glucose (07/06/2017 5:08 AM EST) athologist Signature POC Glucose 154 65 - 199 [facility] mg/dL [facility] Comment: Supplemental ranges: <140 mg/dL before meals <180 mg/dL all other times of the day Specimen Anatomical Collection Method Collection Time Receive d Time (Source) Location / / Volume Laterality Blood specimen 07/06/2017 5:08 AM 017 5:08 (specimen) EST AM EST Daphne Shahid MD POINT OF CARE TEST ORDERABLE S Performing Organization Address City/State/[place] [address] POCT Glucose (07/06/2017 4:05 AM EST) athologist Signature POC Glucose 142 65 - 199 [facility] mg/dL [facility] Comment: Supplemental ranges: <140 mg/dL before meals <180 mg/dL all other times of the day Specimen Anatomical Collection Method Collection Time Receive d Time (Source) Location / / Volume Laterality Blood specimen 07/06/2017 4:05 AM 017 4:05 (specimen) EST AM EST Daphne Shahid MD POINT OF CARE TEST ORDERABLE S Performing Organization Address City/State/ZIP Code Phon e Number [address] POCT Glucose (07/06/2017 3:00 AM EST) athologist Signature POC Glucose 116 65 - 199 [facility] mg/dL [facility] Comment: Supplemental ranges: <140 mg/dL before meals <180 mg/dL all other times of the day Specimen Anatomical Collection Method Collection Time Receive d Time (Source) Location / / Volume Laterality Blood specimen 07/06/2017 3:00 AM 017 3:00 (specimen) EST AM EST Daphne Shahid MD POINT OF CARE TEST ORDERABLE S Performing Organization Address City/State/ZIP Code Phon e Number [address] Potassium (07/06/2017 2:20 AM EST) athologist Signature Potassium 3.9 3.5 - 5.0 [facility] mmol/L [facility] Comment: Please note: ??Patients with [...] Shahid MD CHEMISTRY ORDERABLES Performing Organization Address City/[facility]/ZIP Code Phon e Number [place] [phone] Differential, Automated (07/06/2017 2:20 AM EST) P athologist Signature Neutrophils % 72.9 % [facility] Neutr Abs (ANC) 5.53 1.70 - [facility] 6.[address] [facility] x10(3)/[facility] LABORATORY Lymphocytes % 16.4 % [facility]OR[facility] Lymphocytes Abs 1.2 0.9 - 3.2 [facility] x10(3)/[facility] LABORATORY Monocytes % 9.4 % [facility]OR[facility]ORY Monocyte Abs 0.7 0.3 - 0.9 [facility] x10(3)/[facility] LABORATORY Eosinophils % 0.5 % [facility] Eosinophils Abs 0.0 0.0 - 0.4 [facility] x10(3)/[facility] LABORATORY Basophils % 0.4 % [facility] Basophils Abs 0.0 0.0 - 0.1 [facility] x10(3)/[facility] LABORATORY Immature Gran % 0.40 % [facility] [...] 0.04 x10(3)/[facility] MAR Y [facility] LABORATORY Specimen Anatomical Collection Method Collection Time Receive d Time (Source) Location / / Volume Laterality Blood specimen 07/06/2017 2:20 AM 017 2:33 (specimen) EST AM EST Resulting Agency Comment Spec In Lab Daphne Shahid MD HEMATOLOGY ORDERABLES Performing Organization Address City/State/ZIP Code Phon e Number [place] [phone] (ABNORMAL) Hemogram (07/06/2017 2:20 AM EST) Analysis Performed At Patho logist Time Signature WBC 7.6 4.0 - 9.5 [facility] x10(3)/[facility] LABORATORY RBC 4.52 (L) 4.58 - [place] [address] [facility] x10(6)/[facility] LABORATORY Hemoglobin 13.4 (L) 13.7 - [facility] 16.5 gm/dL [facility] Hematocrit 39.7 (L) 40.5 - [facility] 48.5 % [facility] MCV 87.8 82.9 - [facility] 93.1 [facility] LABORATORY MCH 29.6 27.5 - [facility] 32.1 pg [facility] MCHC 33.8 32.0 - [facility] 35.7 gm/dL [facility] Platelets 189 145 - 357 [facility] x10(3)/[facility] RDWSD 45.6 (H) 36.0 - [facility] 45.0 [facility] LABORATORY RDWCV 14.3 (H) 11.4 - [facility] 13.8 % [facility] LABORATORY MPV 9.1 7.6 - 12.9 [facility] LABORATORY nRBC % Auto 0.0 % [facility] LABORATORY nRBC Abs Auto 0.000 0.000 - [facility] [address] [facility] x10(3)/[facility] LABORATORY Specimen Anatomical Collection Method Collection Time Receive d Time (Source) Location / / Volume Laterality Blood specimen 07/06/2017 2:20 AM 017 2:33 (specimen) EST AM EST Resulting Agency Comment Spec In Lab Daphne Shahid MD HEMATOLOGY ORDERABLES Performing Organization Address City/State/[place] [address] (ABNORMAL) APTT (07/06/2017 2:20 AM EST) P athologist Signature PTT 52 (H) 25 - 35 sec [facility] Comment: The recommended therapeutic range for fu ll dose, unfractionated heparin at [facility] is 80 ? 114 seconds. The use [...] Resulting Agency Comment Spec In Lab Daphne Shahdi MD HEMATOLOGY ORDERABLES Performing Organization Address City/State/ZIP Code Phon e Number [address] POCT Glucose (07/06/2017 2:20 AM EST) athologist Signature POC Glucose 115 65 - 199 [facility] mg/dL [facility] Comment: Supplemental ranges: <140 mg/dL before meals <180 mg/dL all other times of the day Specimen Anatomical Collection Method Collection Time Receive d Time (Source) Location / / Volume Laterality Blood specimen 07/06/2017 2:20 AM 017 2:20 (specimen) EST AM EST Daphne Shahid MD POINT OF CARE TEST ORDERABLE S Performing Organization Address City/State/[place] [address] (ABNORMAL) Cardiac Enzymes (LEB/CGP) (07/06/2017 2:20 AM EST) athologist Signature Troponin-T 2.13 (H) 0.00 - [facility] [facility] 0.[facility] ng/mL [facility] Comment: The 99th percentile for [...] additional sample may be indicated. Reference: Third [place] Definition of Myocardial Infarction. Journal of the [place] [employer] 2012;60:1581-98 CK, Total 129 0 - 200 unit/L [facility] LABOR[facility]ORY Specimen Anatomical Collection Method Collection Time Receive d Time (Source) Location / / Volume Laterality Blood specimen 07/06/2017 2:20 AM 017 2:33 (specimen) EST AM EST Resulting Agency Comment Spec In Lab Daphne Shahid MD CHEMISTRY ORDERABLES Performing Organization Address City/State/[place] [address] (ABNORMAL) Hemoglobin A1c (07/06/2017 2:20 AM EST) Analysis Performed At Patho logist Time Signature Hemoglobin A1C 6.8 (H) 4.3 - 5.6 [facility] LABORATORY Comment: Reference Range: 4.3 [...] Mellitus, Diabetes Care 2013; 36: Suppl. 1, S67-07 Est Avg Gluc See note mg/dL PORTER [...] into estimated average glucose values. ??Diabetes Care 2008:31(8):5536-2366. Specimen Anatomical Collection Method Collection Time Receive d Time (Source) Location / / Volume Laterality Blood specimen 07/06/2017 2:20 AM 017 2:34 (specimen) EST AM EST Resulting Agency Comment Spec In Lab Daphne Shahid MD CHEMISTRY ORDERABLES Performing Organization Address City/State/ZIP Code Phon e Number [place] [phone] (ABNORMAL) Lipid Panel (07/06/2017 2:20 AM EST) [facility] Method Time Signature Chol, Total 150 <=239 [place] mg/dL [facility] LAB[facility]ORY Triglycerides 129 <=199 [place] mg/dL [facility] LAB[facility]ORY HDL 32 (L) >=40 [place] mg/dL [facility] LAB[facility] LDL Cholesterol 92 <=190 [place] mg/dL [facility] Chol/HDL Ratio 4.7 ratio [facility] LABOR[facility] Lipid See Note [place] Interpretation [facility] Comment: Lipid management should be guided by a p atient? s ASCVD risk, goals and preferences. ACC/AHA Guidelines recommend high intens ity statin if clinical ASCVD or LDL greater than or equal to 190 mg/dL. http://Techliciousurl.com/LNN-MWA-Kjnwnrcqr Adults aged 40-75 with LDL 70-189 mg/dL should have their 10 year ASCVD risk estimated with the ACC/AHA ASCVD risk es timator http://tools.acc.org/DLMRK-Gjrb-Ajujyiro r/ Statin should be discussed if risk [...] Organization Address City/State/ZIP Code Phon e Number [address] POCT Glucose (07/06/2017 1:09 AM EST) athologist Signature POC Glucose 121 65 - 199 [facility] mg/dL [facility] Comment: Supplemental ranges: <140 mg/dL before meals <180 mg/dL all other times of the day Specimen Anatomical Collection Method Collection Time Receive d Time (Source) Location / / Volume Laterality Blood specimen 07/06/2017 1:09 AM 017 1:09 (specimen) EST AM EST Daphne Shahid MD POINT OF CARE TEST ORDERABLE S Performing Organization Address City/State/[place] [address] POCT Glucose (07/06/2017 12:06 AM EST) athologist Signature POC Glucose 147 65 - 199 [facility]/dL [facility] Comment: Supplemental ranges: <140 mg/dL before meals <180 mg/dL all other times of the day Specimen Anatomical Collection Method Collection Time Receive d Time (Source) Location / / Volume Laterality Blood specimen 07/06/2017 12:06 7 (specimen) AM EST 12:06 AM EST Daphne Shahid MD POINT OF CARE TEST ORDERABLE S Performing Organization Address City/State/[place] [address] (ABNORMAL) POCT Glucose (07/05/2017 10:56 PM EST) P athologist Signature POC Glucose 200 (H) 65 - 199 [place] mg/dL [facility] Comment: Supplemental ranges: <140 mg/dL before meals <180 mg/dL all other times of the day Specimen Anatomical Collection Method Collection Time Receive d Time (Source) Location / / Volume Laterality Blood specimen 07/05/2017 10:56 7 (specimen) PM EST 10:56 PM EST Daphne Shahid MD POINT OF CARE TEST ORDERABLE S Performing Organization Address City/State/[place] [address] (ABNORMAL) POCT Glucose (07/05/2017 10:05 PM EST) P athologist Signature POC Glucose 225 (H) 65 - 199 [place] mg/dL [facility] Comment: Supplemental ranges: <140 mg/dL before meals <180 mg/dL all other times of the day Specimen Anatomical Collection Method Collection Time Receive d Time (Source) Location / / Volume Laterality Blood specimen 07/05/2017 10:05 7 (specimen) PM EST 10:05 PM EST Daphne Shahid MD POINT OF CARE TEST ORDERABLE S Performing Organization Address City/State/[place] [address] (ABNORMAL) POCT Glucose (07/05/2017 9:02 PM EST) P athologist Signature POC Glucose 301 (H) 65 - 199 [place] mg/dL [facility] Comment: Supplemental ranges: <140 mg/dL before meals <180 mg/dL all other times of the day Specimen Anatomical Collection Method Collection Time Receive d Time (Source) Location / / Volume Laterality Blood specimen 07/05/2017 9:02 PM 017 9:02 (specimen) EST PM EST Daphne Shahid MD POINT OF CARE TEST ORDERABLE S Performing Organization Address City/State/ZIP Code Phon e Number [place] [phone] XR Chest PA or [...] 474 ms MUSE SYSTEM (Bezet) Calculated P [place] 50 degrees MUSE SYSTEM Calculated R [place] -28 degrees MUSE SYSTEM Calculated T [place] 90 degrees MUSE SYSTEM INTERPRETATION Sinus tachycardia [...] (ABNORMAL) Differential, Automated (07/05/2017 8:20 PM EST) [facility] gist Method Time Signature Neutrophils % 88.4 % [facility] Neutr Abs (ANC) 9.08 (H) 1.70 - [facility] 6.10 [facility] x10(3)/[facility] L LABORATORY Lymphocytes % 7.0 % [facility] Lymphocytes Abs 0.7 (L) 0.9 - 3.2 [facility] x10(3)/[facility] LABORATORY Monocytes % 3.7 % [facility] Monocyte Abs 0.4 0.3 - 0.9 [facility] x10(3)/[facility] LABORATORY Eosinophils % 0.1 % [facility] Eosinophils Abs 0.0 0.0 - 0.4 [facility] x10(3)/[facility] LABORATORY Basophils % 0.2 % [facility] Basophils Abs 0.0 0.0 - 0.1 [facility] x10(3)/[facility] LABORATORY Immature Gran % 0.60 % BAR[facility] [...] Abs 0.06 (H) 0.00 - 0.04 x10(3)/[facility] LABORATORY Specimen Anatomical Collection Method Collection Time Receive d Time (Source) Location / / Volume Laterality Blood specimen 07/05/2017 8:20 PM 017 8:27 (specimen) EST PM EST Resulting Agency Comment Spec In Lab Daphne Shahid MD HEMATOLOGY ORDERABLES Performing Organization Address City/State/[place] [address] (ABNORMAL) Hemogram (07/05/2017 8:20 PM EST) Analysis Performed At Patho logist Time Signature WBC 10.3 (H) 4.0 - 9.5 [facility] x10(3)/[facility] LABORATORY RBC 4.64 4.58 - [facility] 5.[address] [facility] x10(6)/[facility] LABORATORY Hemoglobin 14.1 13.7 - [facility] 16.5 gm/dL [facility] Hematocrit 40.8 40.5 - [facility] 48.5 % [facility] MCV 87.9 82.9 - [facility]1 [facility] LAB[facility]ORY MCH 30.4 27.5 - [facility] 32.1 pg [facility] MCHC 34.6 32.0 - [facility] 35.7 gm/dL [facility] Platelets 204 145 - 357 [facility] x10(3)/[facility] LABORATORY RDWSD 46.1 (H) 36.0 - [facility] 45.0 [facility] LABORATORY RDWCV 14.5 (H) 11.4 - [facility] 13.8 % [facility] MPV 9.7 7.6 - 12.9 [facility] LABORATORY nRBC % Auto 0.0 % [facility] nRBC Abs Auto 0.000 0.000 - [facility] [address] [facility] x10(3)/[facility] LABORATORY Specimen Anatomical Collection Method Collection Time Receive d Time (Source) Location / / Volume Laterality Blood specimen 07/05/2017 8:20 PM 017 8:27 (specimen) EST PM EST Resulting Agency Comment Spec In Lab Daphne Shahid MD HEMATOLOGY ORDERABLES Performing Organization Address City/[facility]/ZIP Code Phon e Number [address] APTT (07/05/2017 8:20 PM EST) athologist Signature PTT 32 25 - 35 sec [facility] Comment: The recommended therapeutic range for fu ll dose, unfractionated heparin at [facility] is 80 ? 114 seconds. The use [...] Shahid MD HEMATOLOGY ORDERABLES Performing Organization Address City/[facility]/ZIP [facility] [place] [address] (ABNORMAL) Cardiac Enzymes (LEB/CGP) (07/05/2017 8:20 PM EST) athologist Signature Troponin-T 2.11 (H) 0.00 - [facility] 0.00 ng/mL [facility] Comment: The 99th percentile for [...] additional sample may be indicated. Reference: Third [place] Definition of Myocardial Infarction. Journal of the [place] [employer] 2012;60:1581-98 CK, Total 149 0 - 200 unit/L [facility] Specimen Anatomical Collection Method Collection Time Receive d Time (Source) Location / / Volume Laterality Blood specimen 07/05/2017 8:20 PM 017 8:27 (specimen) EST PM EST Resulting Agency Comment Spec In Lab Daphne Shahid MD CHEMISTRY ORDERABLES Performing Organization Address City/[facility]/[place] [address] (ABNORMAL) Magnesium (07/05/2017 8:20 PM EST) P athologist Signature Magnesium 0.68 (L) 0.69 - 1.07 [facility] mmol/L [facility] Specimen Anatomical Collection Method Collection Time Receive d Time (Source) Location / / Volume Laterality Blood specimen 07/05/2017 8:20 PM 017 8:27 (specimen) EST PM EST Resulting Agency Comment Spec In Lab Daphne Shahid MD CHEMISTRY ORDERABLES Performing Organization Address City/[facility]/[place] [address] (ABNORMAL) Basic Metabolic Panel (non-fasting) (07/05/2017 8:20 PM EST) P athologist Signature Glucose Lvl 321 (H) 65 - 199 [facility] mg/dL [facility] Comment: Diabetes: >=200 mg/dL plus symp toms BUN 20 10 - 20 mg/dL [facility] Creatinine 1.12 0.80 - 1.50 mg/dL [facility] LABOR[facility]ORY Sodium 139 135 - 145 mmol/L [facility] Potassium 3.8 3.5 - 5.0 mmol/L [facility] Estimated GFR >60 >=60 [facility] Comment: The reported eGFR should be multiplied b y 1.2 for patients. The MDRD is not an appropriate measure o f renal function for patients with body mass extremes or in patients with acute kidney failure. http://J. Hilburn/DHnkdep http://J. Hilburn/DHMCnkf Specimen Anatomical Collection Method Collection Time Receive d Time (Source) Location / / Volume Laterality Blood specimen 07/05/2017 8:20 PM 017 8:27 (specimen) EST PM EST Resulting Agency Comment Spec In Lab Daphne Shahid MD CHEMISTRY ORDERABLES Performing Organization Address City/[facility]/[place] [address] (ABNORMAL) POCT Glucose (07/05/2017 7:32 PM EST) P athologist Signature POC Glucose 296 (H) 65 - 199 [facility] mg/dL [facility] Comment: Supplemental ranges: <140 mg/dL before meals <180 mg/dL all other times of the day Specimen Anatomical Collection Method Collection Time Receive d Time (Source) Location / / Volume Laterality Blood specimen 07/05/2017 7:32 PM 017 7:32 (specimen) EST PM EST Daphne Shahid MD POINT OF CARE TEST ORDERABLE S Performing Organization Address City/State/ZIP Code Phon e Number [facility] [place] [address] CARDIAC CATHETERIZATION (07/05/2017 6:47 PM EST) Specimen (Source) Anatomical Location Collection Method / Collectio n Time Received Time / Laterality Volume Narrative CARDIOMAC SYSTEM - 07/05/2017 7:27 PM ES T ?[facility] ? Cardiac Cathete rization/Intervention Report ? Patient Name: Natalya, Gregory ? Procedure Date: 07/05/2017 ? A #: [id number] ? Primary Physician: Jet Mckenna ? Case #: [id number] ? File Name: [id number] ? Catheterization Order Number: [id number] ? [facility] ? Final Report [place], [place] ? Patient Name: ? Gregory Natalya ?ID#: ?[id number] ? : ?1945 ? Procedure Date: ? [...] presented with: non -STEMI (w/i 7 days). [place] ?[employer] angina c lass was IV. 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 ? Jet Mckenna M.D. ? Electronically Signed by: Jet bunch M.D. ? Report Finalized: 07/05/2017 ??19:23 ? Report Last Ammended: 10/26/2017 ??10:29 ? Procedure Note Jet Mckenna MD - 10/26/2017Formatt ing of this note might be different from the original. [facility] Cardiac Catheterization/Intervention Re port Patient Name: Gregory Hoang Procedure Date: 07/05/2017 A #: [id number] Primary Physician: Jet Mckenna Case #: [id number] File Name: [id number] Catheterization Order Number: [id number] [facility] Final Report [place], [place] Patient Name: Gregory Hoang ID#: [id number] : 1945 Procedure Date: July 05, [...] presented with: non-STEMI ( w/i 7 days). [place] [employer] angina class was IV. No [...] site angiograph y and IABP insertion in crime lab technician. Jet Mckenna M.D. Electronically Signed by: [...] E ? (Age): 1945(72y) Med Rec#: ? [id number] ?Sex: ?M ? Site Loc: ? [facility] ?Ht / Wt: ??173(cm)/86(kg) Pt. Loc: ?[facility] ? BSA: ?2 Study Date: ?? 07/05/2017 ?Pt. Type: Inpatient Tape: ? Referring: Daphne Shahid ([id number]) Referring: MANDA ALCANTAR Reading: Blade Preston ([id number]) Fish Flipper: Dayami Paula BA [facility] Diagnosis: *ICD-10-PCS Non-ST elevation (NSTEMI) [...] E-wave Vmax ?0.8 ?m/sec ? MV deceleration [id number] ?msec ? MV A-wave Vmax ?0.8 ?m/sec [...] ? Mid-Inferior ?Akinetic ? Mid-Inferoseptal ?Hypokinetic ? [place]-Septal ? Akinetic ? [place]-Anterior ? Hypokinetic ? [place]-Lateral ?Hypokinetic ? [place]-Inferior ? Akinetic ? [place]-Tip ?Akinetic ? This report has been electronically sign ed by: _ Blade Preston MD ? 07/06/2017 08 :53:15 Images reviewed and interpretation verif ied [facility] Cardiac Ultrasound Laboratory Procedure Note Blade Preston MD - 07/06/2017Formatt ing of this note might be different from the original. Procedure: Transthoracic Echocardiogram Patient: NATALYA MCBRIDE(Age): [birth year]72y) Med Rec#: [id number] Sex: M Site Loc: [facility] Ht / Wt: 173(cm)/86(kg) Pt. Loc: [facility] BSA: 2 Study Date: 07/05/2017 Pt. Type: Inpatie nt Tape: Referring: Daphne Shahid ([id number]) Referring: MANDA ALCANTAR Reading: Blade Preston ([id number]) Fish Flipper: Dayami Paula BA[facility] Diagnosis: *ICD-10-PCS Non-ST elevation (NSTEMI) [...] MV E-wave Vmax 0.8 m/sec MV deceleration [id number] msec MV A-wave Vmax 0.8 m/sec MV [...] Hypokinetic Mid-Posterolateral Hypokinetic Mid-Inferior Akinetic Mid-Inferoseptal Hypokinetic [place]-Septal Akinetic [place]-Anterior Hypokinetic [place]-Lateral Hypokinetic [place]-Inferior Akinetic [place]-Tip Akinetic This report has been electronically sign ed by: _ Blade Preston MD 07/06/2017 08:53:15 Images reviewed and interpretation verif ied [facility] Cardiac Ultrasound Laboratory Daphne Shahid MD ECHO ORDERABLES Performing Organization Address City/State/ZIP Code Phon e Number [facility] Differential, Automated (07/05/2017 4:55 PM EST) P athologist Signature Neutrophils % 77.0 % [facility] Neutr Abs (ANC) 5.26 1.70 - [facility] 6.10 [facility] x10(3)/[facility] LABORATORY Lymphocytes % 13.3 % [facility] Lymphocytes Abs 0.9 0.9 - 3.2 [facility] x10(3)/[facility] LABORATORY Monocytes % 8.2 % [facility] Monocyte Abs 0.6 0.3 - 0.9 [facility] x10(3)/[facility] LABORATORY Eosinophils % 0.7 % [facility] Eosinophils Abs 0.0 0.0 - 0.4 [facility] x10(3)/[facility] LABORATORY Basophils % 0.4 % [facility] Basophils Abs 0.0 0.0 - 0.1 [facility] x10(3)/[facility] LABORATORY Immature Gran % 0.40 % BAR[facility] [...] Melisa Gran Abs 0.03 0.00 - 0.04 x10(3)/[facility] Y [facility] LABORATORY Specimen Anatomical Collection Method Collection Time Receive d Time (Source) Location / / Volume Laterality Blood specimen 07/05/2017 4:55 PM 017 5:24 (specimen) EST PM EST Resulting Agency Comment Spec In Lab Daphne Shahid MD HEMATOLOGY ORDERABLES Performing Organization Address City/State/[place] [address] (ABNORMAL) Hemogram (07/05/2017 4:55 PM EST) Analysis Performed At Patho logist Time Signature WBC 6.8 4.0 - 9.5 [facility] x10(3)/[facility] LABORATORY RBC 4.67 4.58 - [place] [address] [facility] x10(6)/[facility] LABORATORY Hemoglobin 14.0 13.7 - [facility] g[facility]/dL [facility] Hematocrit 41.0 40.5 - [facility] 48.5 % [facility] MCV 87.8 82.9 - [facility] 93.1 [facility] LABORATORY MCH 30.0 27.5 - [place] 32.1 pg [facility] MCHC 34.1 32.0 - [facility] 35.[facility] gm/dL [facility] Platelets 197 145 - 357 [facility] x10(3)/[facility] LABORATORY RDWSD 46.4 (H) 36.0 - [place] 45.0 [facility] LABORATORY RDWCV 14.5 (H) 11.4 - [facility] SU 13.8 % [facility] LABORATORY MPV 9.7 7.6 - 12.9 [facility] LABORATORY nRBC % Auto 0.0 % [facility] nRBC Abs Auto 0.000 0.000 - [place] [address] [facility] x10(3)/[facility] LABORATORY Specimen Anatomical Collection Method Collection Time Receive d Time (Source) Location / / Volume Laterality Blood specimen 07/05/2017 4:55 PM 017 5:24 (specimen) EST PM EST Resulting Agency Comment Spec In Lab Daphne Shahid MD HEMATOLOGY ORDERABLES Performing Organization Address City/State/[place] [address] (ABNORMAL) Cardiac Enzymes (LEB/CGP) (07/05/2017 4:55 PM EST) P athologist Signature Troponin-T 1.69 (H) 0.00 - [place] 0.00 ng/mL [facility] Comment: The 99th percentile for [...] additional sample may be indicated. Reference: Third [place] Definition of Myocardial Infarction. Journal of the [place] [employer] 2012;60:1581-98 CK, Total 191 0 - 200 unit/L [facility] Specimen Anatomical Collection Method Collection Time Receive d Time (Source) Location / / Volume Laterality Blood specimen 07/05/2017 4:55 PM 017 5:56 (specimen) EST PM EST Resulting Agency Comment Spec In Lab Daphne Shahid MD CHEMISTRY ORDERABLES Performing Organization Address City/[facility]/[place] [address] (ABNORMAL) pro-Brain Natriuretic Peptide (07/05/2017 4:55 PM EST) P athologist Signature ProBNP 1,598 (H) <=125 [facility] pg/mL [facility]ORY Specimen Anatomical Collection Method Collection Time Receive d Time (Source) Location / / Volume Laterality Blood specimen 07/05/2017 4:55 PM 017 5:24 (specimen) EST PM EST Resulting Agency Comment Spec In Lab Daphne Shahid MD CHEMISTRY ORDERABLES Performing Organization Address City/State/[place] [address] [facility] [address] Magnesium (07/05/2017 4:55 PM EST) athologist Signature Magnesium 0.78 0.69 - 1.07 [facility] mmol/L [facility] LABOR[facility]ORY Specimen Anatomical Collection Method Collection Time Receive d Time (Source) Location / / Volume Laterality Blood specimen 07/05/2017 4:55 PM 017 5:24 (specimen) EST PM EST Resulting Agency Comment Spec In Lab Daphne Shahid MD CHEMISTRY ORDERABLES Performing Organization Address City/State/ZIP Code Phon e Number [address] (ABNORMAL) Basic Metabolic Panel (non-fasting) (07/05/2017 4:55 PM EST) athologist Signature Glucose Lvl 230 (H) 65 - 199 [facility] mg/dL [facility] Comment: Diabetes: >=200 mg/dL plus symp toms BUN 19 10 - 20 mg/dL [facility] Creatinine 1.04 0.80 - 1.50 mg/dL [facility] LABORATORY Sodium 142 135 - 145 mmol/L [facility] Potassium 4.0 3.5 - 5.0 mmol/L [facility] Estimated GFR >60 >=60 [facility] Comment: The reported eGFR should be multiplied b y 1.2 for patients. The MDRD is not an appropriate measure o f renal function for patients with body mass extremes or in patients with acute kidney failure. http://WP Fail-Safe.MyFreightWorld/DHnkdep http://WP Fail-Safe.com/DHMCnkf Specimen Anatomical Collection Method Collection Time Receive d Time (Source) Location / / Volume Laterality Blood specimen 07/05/2017 4:55 PM 017 5:24 (specimen) EST PM EST Resulting Agency Comment Spec In Lab Daphne Shahid MD CHEMISTRY ORDERABLES Performing Organization Address City/[facility]/ZIP Code Phon e Number [address] (ABNORMAL) APTT (07/05/2017 4:55 PM EST) P athologist Signature PTT 41 (H) 25 - 35 sec [facility] Comment: The recommended therapeutic range for fu ll dose, unfractionated heparin at [facility] is 80 ? 114 seconds. The use [...] Shahid MD HEMATOLOGY ORDERABLES Performing Organization Address City/[facility] [place] [address] (ABNORMAL) POCT Glucose (07/05/2017 4:53 PM EST) P athologist Signature POC Glucose 208 (H) 65 - 199 [facility] mg/dL [facility] Comment: Supplemental ranges: <140 mg/dL before meals <180 mg/dL all other times of the day Specimen Anatomical Collection Method Collection Time Receive d Time (Source) Location / / Volume Laterality Blood specimen 07/05/2017 4:53 PM 017 4:53 (specimen) EST PM EST Daphne Shahid MD POINT OF CARE TEST ORDERABLE S Performing Organization Address City/[facility]/ZIP Code [place] [address] EKG 12 Lead (07/05/2017 4:32 PM EST) Component Value Ref Range Test Analysis Performed Pathologis t Method Time At Signature Ventricular rate 97 BPM MUSE SYSTEM Atrial Rate 97 BPM MUSE SYSTEM P-R Interval 148 ms MUSE SYSTEM QRS Duration 96 ms MUSE SYSTEM Q-T Interval 364 ms MUSE SYSTEM QTC Calculated 462 ms MUSE SYSTEM (Bezet) Calculated P [place] 48 degrees MUSE SYSTEM Calculated R [place] -33 degrees MUSE SYSTEM Calculated T [place] 98 degrees MUSE SYSTEM INTERPRETATION Normal sinus [...] Coronary atherosclerosis of unspecified type of vessel, [place] or graft Cardiomyopathy, ischemic Other specified forms [...] post-op day 1 in the AM Give AZ if unable to take PO, Routine Given [...] in dextrose 5% 250 mL EST infusion ([employer]) CONTINUOUS PRN, Starting on Wed07/05/17 at 1837, [...] post-op day 1 in the AM Give AZ if unable to take PO, Routine atorvastatin (LIPITOR) tablet 40 mg 1611 (Given - Prov ider: More Luther RN) 1738 (Given - Provider: Em Jones RN) 40 mg, Oral, EVERY EVENING, First dose o n Wed07/09/17 at 1700, Until Discontinued, Routine ceFAZolin (ANCEF) 2g in dextrose 5% 100 mL 1756 (New B ag - Provider: Yanet Valdovinos, RN)1826 (Stopped - Provider: More Luther RN) 0125 (New Bag - Provider: Ale M Claire, RN)0155 (Stopped - Provider: Ale Rangel RN)0901 (New Bag - Provider: Em Jones RN)0931 (Stopped - Provider: Em Jones RN)1738 (New Bag - Provider: Em Jones RN) 0143 (New Bag - Provider: Denice Jacobson, RN)0213 (Stopped - Provider: Denice Jacobson, RN)0932 (New Bag - Provider: Myrna Young, VAMSI)1002 (Stopped - Provider: Myrna Young, VAMSI) 2 g, Intravenous, EVERY 8 HOURS, First [...] Myrna Young, VAMSI) 40 mg, Oral, DAILY, 7 doses, First [...] poor appetite) 0928 (Given - Provider: Myrna E Crock ett, RN)1200 (Not Given - Provider: Myrna Young [...] parameters not met)0400 (Not Given - Provider: Ael Rangel RN - Reason: Order parameters not [...] - Provider: More Luther RN - Reason: Contraindicated)202 (Not Given - Provider: Ale Rangel RN [...] not met)1215 (Given - Provider: Myrna Young, VAMSI) nit BG 161 - 180 Give 2 units BG 181 - 2 00 Give 4 units BG 201 - 220 Give 6 units BG 221 - 240 Give 9 units BG greater than 240, give 12 units and recheck BG in 2 hours. If BG remains greater than 240, 1999 (N ot Given - Provider: Denice Jacobson, VAMSI - Reason: Order parameters not met - [...] Luther, VAMSI)1757 (Given - Provider: Yanet Valdovinos, RN) 0842 (Given - Provider: Em Jones, RN)1307 [...] RN) 0615 (Given - Provider: Ale Rangel, VAMSI) [...] Rangel , VAMSI)1311 (Given - Provider: Em Jones, VAMSI) 12.5 mg, Oral, EVERY 8 HOURS SCHEDULED, First dose on Wed07/11/17 at 1400, Until Discontinued, Routine meTOPROLOL tartrate (LOPRESSOR) tablet 25 mg 2000 (Given - Provider: Denice Jacobson, VAMSI) 0921 (Given - Provider: Myrna triplett RN) [...] Jacobson, VAMSI) 0532 (Given - Provider: Denice Jacobson, VAMSI)1330 (Not Given - Provider: Myrna Young RN [...] mg (COMPLETED) 173 (Given - Provider: Em Jones RN) 2.5 [...] post-op day 1 in the AM Give [place] if unable to take PO
Routine Group [...]
Routine documented in this encounter Care Teams Qualitative Researcher Relationship Specialty Start Date End Date Lovely Vicente MD PCP - General 04/16/[address] [place] [address] documented as of this encounter
--- OUTSIDE RECORDS SUMMARY | 2022-02-18 08:22 | XMS_ITS | Encounter Summary ---
:1945 Author Organization [facility] [place] [address] Care Team Providers Name Role Phone Lovely Vicente MD Primary Care Provider Reason for Visit Reason Comments Thyroid Cancer Encounter Details Date Type Department Care Team Description 06/05/2015 Office Visit Endocrinology at [facility] Albertina Prescott, History of papillary [facility] MD Luz adenocarcinoma of [facility] thyroid (Primary Dx) [place] [address] CENTER [phone] [place] [address] Social History Tobacco Use Types Packs/Day Years [...] the thyroid gland were obtained using a [employer] ultrasound machine. All measurements are given as AP x Transverse x Longitudinal Right Lobe: Absent Left Lobe: Absent Isthmus: Absent Central/Lateral neck: no morphologically abnormal lymph nodes. Impression: No sonographic evidence of recurrence. LUZ PRESCOTT MD Targeting Acquisition Officerstaffing consultant Section of Endocrinology [facility] Luz Prescott MD - 06/05/2015 8:21 AM [...] --f/u in 1 year LUZ PRESCOTT MD Targeting Acquisition Officerstaffing consultant Section of Endocrinology [facility] documented in this encounter Miscellaneous Notes Addendum [...] PA [facility] Cardiology Dept [place], [place] [address] (Wo rk) 03/26/2022 Office Visit Cardiology Vitaliy Nobles MD [facility] CARDIOLOGY [place], [place] [address] (Wo rk) documented as of [...] athologist Signature Thyroglobulin 0.6 <=54.9 CERNER ng/mL [facility] Comment: Interpret with caution. Tg levels [...] BR et al. J Clin Endo Metab 1999;84:4858-4260). Assay performed using the DPC Immulite T [...] Organization Address City/State/[place] [address] CERNER MILLENNIUM (ABNORMAL) TSH (06/05/2015 9:04 AM EST) P athologist Signature TSH 5.88 (H) 0.27 - 4.20 CERNER mcIU/mL MILLENNIUM Specimen Anatomical Collection Method Collection Time Receive d Time (Source) Location / / Volume Laterality Blood specimen 06/05/2015 9:04 AM 015 9:15 (specimen) EST AM EST Resulting Agency Comment Spec In Lab Luz Prescott MD CHEMISTRY ORDERABLES Performing Organization Address City/[facility]/[place]IP [place] [address] CERNER MILLENNIUM documented in this encounter Visit Diagnoses Diagnosis 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
--- OUTSIDE RECORDS SUMMARY | 2022-02-18 08:22 | XMS_ITS | Encounter Summary ---
:1945 Author Organization [facility] [place] [address] Care Team Providers Name Role Phone Lovely Vicente MD Primary Care Provider Reason for Visit Reason Comments Follow-up Encounter Details Date Type Department Care Team Description 06/03/2017 Office Visit Dermatology at [facility] benign nevi; Abdelrahman HOOPER MD History of melanoma; [address] [facility] History of dysplastic nevus; [place] [address] Skin exam for malignant neoplasm [phone] [facility] [place], [place] [address] Social History Tobacco Use Types [...] Rigoberto Garcia MD Section of Dermatology [facility] documented in this encounter Plan of Treatment Upcoming Encounters Date Type Specialty Care Team Description 02/19/2022 Laboratory Appointment Lab 02/19/2022 Office Visit Cardiology Liz Poole PA [facility] Cardiology Dept [place], [place] [address] (Wo rk) 03/26/2022 Office Visit Cardiology Vitaliy Nobles MD [facility] CARDIOLOGY [place], [place] [address] (Wo rk) documented as of [...] failure documented in this encounter Care Teams Pattern Painter Relationship Specialty Start Date End Date Lovely Vicente MD PCP - General 04/16/[address] [place] [address] documented as of this encounter
--- OUTSIDE RECORDS SUMMARY | 2022-02-18 08:22 | XMS_ITS | Encounter Summary ---
:1945 Author Organization [facility] [place] [address] Care Team Providers Name Role Phone Lovely Vicente MD Primary Care Provider Reason for Visit Reason Onset Date Comments Medication Refill 12/24/2016 Encounter Details Date Type Department Care Team Description 12/24/2016 Refill Endocrinology at [facility] Luz Stallings MD [facility] [place] [address] ENDOCRINOLOGY DEPT [phone] [place], [place] [address] (Wo rk) Social History Tobacco [...] PA [facility] er Cardiology Dept [place], [place] [address] (Wo rk) 03/26/2022 Office Visit Cardiology Vitaliy Nobles MD [facility] ER CARDIOLOGY [place], [place] [address] (Wo rk) documented as of this encounter Visit Diagnoses Not on filedocumented in this encounter Care Teams Injection Molding Process Technician Relationship Specialty Start Date End Date Lovely Vicente MD PCP - General 04/16/[address] [place] [address] documented as of this encounter
--- OUTSIDE RECORDS SUMMARY | 2022-02-18 08:23 | XMS_ITS | Encounter Summary ---
:1945 Author Organization [facility] [place] [address] Care Team Providers Name Role Phone Angela Holliday APRN Primary Care Provider Reason for Visit Reason Comments Other Encounter Details Date Type Department Care Team Description 08/01/2013 Telephone Dermatology at [facility] Rigoberto Garcia III, [address] [place] [address] [facility] [phone] TEJA MARIE-DERMAT [place], [place] [address] (Wo rk) Social History Tobacco [...] them. Component Value Surgical Pathology Final Report [facility] Provider: RIGOBERTO GARCIA III Pt. Name: DON HOANG Acc #: [id number] Pt. 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 CR-0 08/01/13 BJM 08/01/13 Verified by: Ian STRANGE, PhD, [facility] Dermatopathologist (Electronic Signature) The attending pathologist [...] 02/19/2022 Office Visit Cardiology Lzi Poole PA [facility] er Cardiology [place], [place] [address] (Wo rk) 03/26/2022 Office Visit Cardiology Vitaliy Nobles MD [facility] ER CARDIOLOGY [place], [place] [address] (Wo rk) documented as of this encounter Visit Diagnoses Not on filedocumented in this encounter Care Teams Line Tender Relationship Specialty Start Date End Date Angela Holliday APRN PCP - General 01/25/13 04/15/15 [address] [place] [address] documented as of this encounter
--- OUTSIDE RECORDS SUMMARY | 2022-02-18 08:23 | XMS_ITS | Encounter Summary ---
:1945 Author Organization [facility] [place] [address] Care Team Providers Name Role Phone Angela Holliday APRN Primary Care Provider Encounter Details Date Type Department Care Team Description 04/30/2014 Orders Only Endocrinology at [facility] Albertina Palmer, Thyroid cancer [facility] Jorge Boyer MD ([place]) [place] [address] [facility] [phone] CENTER ENDOCRINOLOGY DEPT [place], [place] [address] Social History Tobacco Use Types [...] PA [facility] Cardiology Dept [place], [place] [address] (Wo rk) 03/26/2022 Office Visit Cardiology Vitaliy Nobles MD [facility] ER CARDIOLOGY [place], [place] [address] (Wo rk) documented as of this encounter Visit Diagnoses Diagnosis Thyroid cancer - Primary Malignant neoplasm of thyroid gland Chronic systolic heart failure documented in this encounter Care Teams Battery Container Inspector Relationship Specialty Start Date End Date Angela Holliday APRN PCP - General 01/25/[address] [place] [address] documented as of this encounter
--- OUTSIDE RECORDS SUMMARY | 2022-02-18 08:23 | XMS_ITS | Encounter Summary ---
:1945 Author Organization [facility] [place] [address] Care Team Providers Name Role Phone Adi Costello MD Primary Care Provider Reason for Visit Reason Comments Annual Exam ckeck his groin and melanoma follow-up Encounter Details Date Type Department Care Team Description 11/21/2010 Follow-Up Dermatology Arik Tipton Melanoma (Primary Dx) [facility] MD Jorge [place] [phone] DERMATOLOGY DEPT . 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 His only complaints are leg cramps, skin [...] PA [facility] er Cardiology Dept [place], [place] [address] (Wo rk) 03/26/2022 Office Visit Cardiology Vitaliy Nobles MD [facility] ER CARDIOLOGY [place], [place] [address] (Wo rk) documented as of this encounter Visit Diagnoses Diagnosis Melanoma - Primary Melanoma of skin, site unspecified Chronic systolic heart failure documented in this encounter Care Teams Fundraising Assistant Relationship Specialty Start Date End Date Adi Costello MD PCP - General 06/17/10 09/21/11 [address] [place] [address] documented as of this encounter
--- OUTSIDE RECORDS SUMMARY | 2022-02-18 08:23 | XMS_ITS | Encounter Summary ---
:1945 Author Organization [facility] [place] [address] Care Team Providers Name Role Phone Angela Holliday APRN Primary Care Provider Reason for Referral Surgical (Routine) - Closed Specialty Diagnoses / Procedures Referred By Contact Refer red To Contact General Surgery Diagnoses Elijah Villagomez MD Colacchio, Thomas A, MD [address] [place] [address] [place] [address] [place] [address] Phone: Fax: Referral ID Status Reason Start Date Expiration Date Visits V isits Requested Authorized [id number] Closed Specialty 01/25/2013 07/24/2013 1 1 Service Requested Reason for Visit Reason Comments Thyroid Problem Encounter Details Date Type Department Care Team Description 01/25/2013 Office Visit Endocrinology at [facility] Elijah Fuentes Goiter (Primary Dx) [facility] [address] [place] [address] [place] [address] [phone] Social History Tobacco Use Types Packs/Day Years [...] History Nonsmoker 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 All other [...] the thyroid gland were obtained using a [employer] and an HFL38/13-6 broadband linear array transducer. [...] PA [facility] [place], [place] [address] (Wo rk) 03/26/2022 Office Visit Cardiology Vitaliy Nobles MD [facility] CARDIOLOGY [place], [place] [address] (Wo rk) Scheduled Referrals Name [...] Address City/State/[place] [address] RAKESH VILLALOBOSENNIUM documented in this encounter Visit Diagnoses Diagnosis Goiter - Primary Goiter, unspecified Chronic systolic heart failure documented in this encounter Care Teams Instructional Design Consultant Relationship Specialty Start Date End Date Angela Holliday APRN PCP - General 01/25/13 04/15/[address] [place] [address] documented as of this encounter
--- OUTSIDE RECORDS SUMMARY | 2022-02-18 08:23 | XMS_ITS | Encounter Summary ---
:1945 Author Organization [facility] [place] [address] Care Team Providers Name Role Phone MiyaAngela STACIE Primary Care Provider Reason for Visit Reason Comments Urinary Retention Encounter Details Date Type Department Care Team Description 05/16/2013 Follow-Up Urology at [facility] Blade Smith, Retention of urine [facility] (Primary Dx) [place] [address] UROLOGY DEPT [place] [address] (Wo rk) Social History Tobacco Use Types [...] [facility] er Cardiology Dept [place], [place] [address] (Wo rk) 03/26/2022 Office Visit Cardiology Vitaliy Nobles MD [facility] CARDIOLOGY [place], [place] [address] (Wo rk) documented as of this encounter Visit Diagnoses Diagnosis Retention of urine - Primary Retention of urine, unspecified Chronic systolic heart failure documented in this encounter Care Teams Song Plugger Relationship Specialty Start Date End Date Angela Holliday APRN PCP - General 01/25/13 04/15/[address] [place] [address] [place] [address] documented as of this encounter
--- OUTSIDE RECORDS SUMMARY | 2022-02-18 08:23 | XMS_ITS | Encounter Summary ---
:1945 Author Organization [facility] [place] [address] Care Team Providers Name Role Phone Unknown Primary Care Provider Unavailable Reason for Visit Reason Comments Other Encounter Details Date Type Department Care Team Description 10/05/2012 Telephone Dermatology at [facility] Rigoberto Garcia III, [address] [place] [address] [facility] [phone] TEJA MARIE-DERMAT [place] [address] (Wo rk) Social History Tobacco Use Types [...] [facility] Card[facility] Dept [place], [place] [address] (Wo rk) 03/26/2022 Office Visit Cardiology Vitaliy Nobles MD [facility] ER CARDIOLOGY [place], [place] [address] (Wo rk) documented as of this encounter Visit Diagnoses Not on filedocumented in this encounter Care Teams Instructional Designer Relationship Specialty Start Date End Date Unknown PCP - General 10/04/12 01/24/13 None documented as of this encounter
--- OUTSIDE RECORDS SUMMARY | 2022-02-18 08:23 | XMS_ITS | Encounter Summary ---
:1945 Author Organization [facility] [place] [address] Care Team Providers Name Role Phone MiyaAngela STACIE Primary Care Provider Reason for Visit Reason Onset Date Comments Advice Only 03/31/2013 Encounter Details Date Type Department Care Team Description 03/31/2013 Telephone Urology at [facility] Daniele Trejo III, MD [facility] [place] [address] [place] [id number] [phone] (Wo rk) Social History Tobacco Use Types [...] Visit Cardiology Liz Poole PA [facility] [place] [place] [address] (Wo rk) 03/26/2022 Office Visit Cardiology Vitaliy Nobles MD [facility] CARDIOLOGY [place], [place] [address] (Wo rk) documented as of this encounter Visit Diagnoses Not on filedocumented in this encounter Care Teams Body Trimmer Relationship Specialty Start Date End Date Angela Holliday APRN PCP - General 01/25/13 04/15/[address] [place] [address] documented as of this encounter
--- OUTSIDE RECORDS SUMMARY | 2022-02-18 08:23 | XMS_ITS | Encounter Summary ---
:1945 Author Organization [facility] [place] [address] Care Team Providers Name Role Phone Angela Holliday APRN Primary Care Provider Encounter Details Date Type Department Care Team Description 01/25/2013 Clinical [place] [address] Social History Tobacco Use Types Packs/Day [...] [facility] Cardiology Dept [place], [place] [address] (Wo rk) 03/26/2022 Office Visit Cardiology Vitaliy Nobles MD [facility] CARDIOLOGY [place], [place] [address] (Wo rk) documented as of this encounter Visit Diagnoses Not on filedocumented in this encounter Care Teams Light Rail Vehicle Operator Relationship Specialty Start Date End Date Angela Holliday APRN PCP - General 01/25/13 04/15/[address] [place] [address] documented as of this encounter
--- OUTSIDE RECORDS SUMMARY | 2022-02-18 08:23 | XMS_ITS | Encounter Summary ---
:1945 [place] [address] Care Team Providers Name Role Phone MiyaLokeshAngela STACIE Primary Care Provider Encounter Details Date Type Department Care Team Description 03/28/2013 Anesthesia Event Main Operating Room Meredith Calvert MD [facility] [place] [address] [facility] Nolvia Riojas PA [facility] [place] [address] [place] [address] Anesthesia Record Procedure Summary Procedure Name [...] Cardiology Liz Poole PA [facility] Cardiology Dept [place], [place] [address] (Wo rk) 03/26/2022 Office Visit Cardiology Vitaliy Nobles MD [facility] CARDIOLOGY [place], [place] [address] (Wo rk) documented [...] Routine documented in this encounter Care Teams Stationary Steam Engineer Relationship Specialty Start Date End Date Angela Holliday APRN PCP - General 01/25/13 04/15/[address] [place] [address] documented as of this encounter
--- OUTSIDE RECORDS SUMMARY | 2022-02-18 08:23 | XMS_ITS | Encounter Summary ---
:1945 Author Organization [facility] [place] [address] Care Team Providers Name Role Phone MiyaLokeshAngela STACIE Primary Care Provider Encounter Details Date Type Department Care Team Description 04/04/2013 Orders Only General Surgery at Manny Mcknight thyroid [facility] MD Eliseo carcinoma (Primary Dx) [facility] [place] [address] GENERAL SURGERY [phone] [place], [place] [address] Social History Tobacco Use Types [...] Cardiology Liz Poole PA [facility] er Cardiology Dept [place], [place] [address] (Wo rk) 03/26/2022 Office Visit Cardiology Vitaliy Nobles MD [facility] ER CARDIOLOGY [place], [place] [address] (Wo rk) documented as of this encounter Visit Diagnoses Diagnosis Papillary thyroid carcinoma - Primary Malignant neoplasm of thyroid gland Chronic systolic heart failure documented in this encounter Care Teams Exercise Teacher Relationship Specialty Start Date End Date Angela Holliday APRN PCP - General 01/25/13 04/15/[address] [place] [address] documented as of this encounter
--- OUTSIDE RECORDS SUMMARY | 2022-02-18 08:23 | XMS_ITS | Encounter Summary ---
:1945 Author Organization [facility] [place] [address] Care Team Providers Name Role Phone Angela Holliday APRN Primary Care Provider Reason for Visit Reason Comments Benign Prostatic Hypertrophy Encounter Details Date Type Department Care Team Description 11/28/2013 Follow-Up [facility]rology at [facility] Blade Smith, Urinary retention (Primary D x); [facility] BPH (benign prostatic hyperplasia) [place] [address] UROLOGY DEPT [place], [place] [address] (Wo rk) Social History Tobacco [...] PA [facility] Cardiology Dept [place], [place] [address] (Wo rk) 03/26/2022 Office Visit Cardiology Vitaliy Nobles MD [facility] CARDIOLOGY [place], [place] [address] (Wo rk) documented as of [...] Organization Address City/State/ZIP Code Phon e Number [place] [phone] [facility] documented in this encounter Visit Diagnoses Diagnosis Urinary retention - Primary Retention of urine, unspecified BPH (benign prostatic hyperplasia) Unspecified hyperplasia of prostate with out urinary obstruction and other lower urinary tract symptoms (LUTS) Chronic systolic heart failure documented in this encounter Care Teams Assistant Account Manager Relationship Specialty Start Date End Date Angela Holliday APRN PCP - General 01/25/13 04/15/[address] [place] [address] documented as of this encounter
--- OUTSIDE RECORDS SUMMARY | 2022-02-18 08:23 | XMS_ITS | Encounter Summary ---
:1945 Author Organization [facility] Address [facility] [place] [address] Care Team Providers Name Role Phone Unknown Primary Care Provider Unavailable Reason for Visit Reason Comments Skin Check Encounter Details Date Type Department Care Team Description 10/04/2012 Follow-Up Dermatology at [facility] soriasis (Primary Dx); Abdelrahman HOOPER MD Neoplasm of unspecified nature of bone, soft tissue, and skin; [address] [facility] Skin lesion of chest wall; [place] [address] Seborrheic psoriasis- scalp and ingtergl uteal area [phone] [facility] [place], [place] [address] (Wo rk) Social History Tobacco [...] changes: Rigoberto Albarran MD Section of Dermatology [facility] documented in this encounter Plan of Treatment Upcoming Encounters Date Type Specialty Care Team Description 02/19/2022 Laboratory Appointment Lab 02/19/2022 Office Visit Cardiology Liz Poole PA [facility] Cardiology Dept [place], [place] [address] (Wo rk) 03/26/2022 Office Visit Cardiology Vitaliy Nobles MD [facility] CARDIOLOGY [place], [place] [address] (Wo rk) documented as of [...] Component Value Ref Test Analysis Performed At [facility] Range Method Time Signature Surgical CERNER Pathology ? [facility] Report ? Provider: ?? RIGOBERTO ALBARRAN III Pt. Name: ?? DON HOANG ?A ? Acc #: ?[id number] ? Pt. ? Col Date: ?? 3 [...] MD PATHOLOGY/CYTOLOGY ORDERABLE S Performing Organization Address City/[facility]/[place] [address] CERNER MILLENNIUM Specimen to [...] MD PATHOLOGY/CYTOLOGY ORDERABLE S Performing Organization Address City/[facility]/[place] [address] CERNER MILLENNIUM documented in this encounter Visit Diagnoses Diagnosis Psoriasis - Primary Other psoriasis Neoplasm of unspecified nature of bone, soft tissue, and skin Skin lesion of chest wall Unspecified disorder of skin and subcuta neous tissue Seborrheic psoriasis- scalp and ingtergl uteal area Other psoriasis Chronic systolic heart failure documented in this encounter Care Teams River Boat Captain Relationship Specialty Start Date End Date Unknown PCP - General 10/04/12 01/24/13 None documented as of this encounter
--- OUTSIDE RECORDS SUMMARY | 2022-02-18 08:23 | XMS_ITS | Encounter Summary ---
:1945 Author Organization [facility] [place] [address] Care Team Providers Name Role Phone Som Holliday APRN Primary Care Provider Encounter Details Date Type Department Care Team Description 04/11/2014 Procedure visit Gastroenterology at [facility], CONV Esophageal reflux [facility] Luz Winchester RN (Primary Dx) [place] [address] Social History Tobacco Use Types Packs/Day Years Used Date Former Smoker Alcohol Use Standard Drinks/Week Comments No 0 (1 standard drink = 0.6 oz pure alcoho l) Sex Assigned at Date Recorded Not on file documented as of this encounter Progress Notes Adalid Can MD - 04/13/2014 3:43 PM EDT ESOPHAGEAL MANOMETRY Don Fatima Male, 69 yrs, 1945 PCP: SOM HOLLIDAY PIECER UP: NONE STUDY DATE: 04/11/14 PROVIDER: Adalid [place], [place] ([id number]) INDICATION Reflux; preoperative evaluation. METHODS Stationary esophageal manometry was performed with the [employer] esophageal motility system utilizing the Polygram software [...] of the esophagus. Adalid Can, PhD, MD shotblast operator, [facility] [employer] Section of Gastroenterology and Hepatology [facility] [place] [address] [address] V: [phone] F: [phone] [facility]/gabriela CC/EC: PCP - staff msg copy 04/13/14 Henrique Taylor MD - fax copy 04/13/14 Luz Keller RN - 04/11/2014 8:14 AM EDT Esophageal manometry performed without difficulty and Was well tolerated. documented in this encounter Plan of Treatment Upcoming Encounters Date Type Specialty Care Team Description 02/19/2022 Laboratory Appointment Lab 02/19/2022 Office Visit Cardiology Liz Poole PA [facility] Medical [facility] er Cardiology Dept [place], [place] [address] (Wo rk) 03/26/2022 Office Visit Cardiology Vitaliy Nobles MD [facility] CARDIOLOGY [place], [place] [address] (Wo rk) documented as of this encounter Visit Diagnoses Diagnosis Esophageal reflux - Primary Chronic systolic heart failure documented in this encounter Care Teams Coal Gasification Technician Relationship Specialty Start Date End Date Som Holliday APRN PCP - General 01/25/13 04/15/[address] [place] [address] documented as of this encounter
--- OUTSIDE RECORDS SUMMARY | 2022-02-18 08:23 | XMS_ITS | Encounter Summary ---
:1945 [place] [address] Care Team Providers Name Role Phone Holley Hollidayica STACIE Primary Care Provider Encounter Details Date Type Department Care Team Description 03/28[facility]2013 [facility]29[facility]2013 Barbara Gomes MD Dx) [facility] DR Siddiqui [place] [address] [phone] Social History Tobacco Use Types Packs/Day Years [...] please call the General Surgery nurse at [phone], since this may mean that you need morecalcium. Follow-up Appointment: Will be scheduled with Dr. Mcknight in 6 weeks Date and time as well as any required labs will be mailed to you Please call [phone] to confirm date and time of your [...] by calcium supplementation. Phone number for questions: [phone] before 5 PM weekdays [phone] after 5 PM and on weekends/holidays Please follow up with Urology as per their recommendations for Bob removal AttachmentsThe following attachments cannot be sent through Care Everywhere. THYROIDECTOMY: WHAT TO EXPECT AT HOME (ESTONIAN)URINARY CATHETER CARE: AFTER YOUR VISIT (ESTONIAN)documented in this encounter Medications at Time of [...] is a 68 y.o. male presents to [facility] today for total thyroidectomy. See full [...] Willams MD - 03/28/2013 3:43 PM EDT [facility] Operative Note Patient Name: Gregory Fatima : [id number] MR#: [id number] Case Date: 03/28/2013 Surgeon: Surgeon(s) and Role: [...] patient was extubated and taken to the [facility] in stable condition. At the end [...] Operative Note Patient Name: Gregory Fatima : [id number] MR#: [id number] Case Date: 03/28/2013 Surgeon: Surgeon(s) and Role: [...] PA [facility] Cardiology Dept [place], [place] [address] (Wo rk) 03/26/2022 Office Visit Cardiology Vitaliy Nobles MD [facility] CARDIOLOGY [place], [place] [address] (Wo rk) documented as of [...] Address City/State/ZIP Code Phon e Number [address] CERNER MILLENNIUM (ABNORMAL) POCT [...] Organization Address City/State/[place] [address] CERNER MILLENNIUM (ABNORMAL) POCT [...] Organization Address City/State/[place] [address] CERNER MILLENNIUM (ABNORMAL) POCT [...] City/[facility]/ZIP Code Phon e Number [address] CERNER MILLENNIUM (ABNORMAL) POCT [...] City/[facility]/ZIP Code Phon e Number [address] CERNER MILLENNIUM (ABNORMAL) POCT [...] Organization Address City/State/[place] [address] CERNER MILLENNIUM (ABNORMAL) POCT [...] City/[facility]/ZIP Code Phon e Number [address] CERNER MILLENNIUM (ABNORMAL) POCT [...] City/[facility]/[place] [address] CERNER MILLENNIUM Specimen to Pathology (surgical or derm) (03/28/2013 12:14 PM EDT) Specimen Anatomical Collection Method Collection Time Receive d Time (Source) Location / / Volume Laterality AP Specimen 03/28/2013 12:14 03/28/2013 PM EDT 12:14 PM EDT Narrative [facility] - 03/28/2013 12:14 PM EDT Specimen requisition ordered. ??Separate Pathology report to follow Mesha Mcknight MD PATHOLOGY/CYTOLOGY ORDERABLE S Performing Organization Address City/State/[place] [address] [facility] Pathology Addendum Report (03/28/2013 12:03 PM EDT) Component Value Ref Test Analysis Performed At [facility] Range Method Time Signature Addendum [facility] ? [facility] ? Provider: ?? MESHA MCKNIGHT Pt. Name: ?? GREGORY FATIMA ? Acc #: ?[id number] ?Pt. MRN: ?[id number] ? Col Date: ?? 03/28/2013 ?/Sex: ?1945,(68 [...] MD PATHOLOGY/CYTOLOGY ORDERABLE S Performing Organization Address [facility]/[place] [address] [facility] Surgical Pathology Report (03/28/2013 12:03 PM EDT) Component Value Ref Test Analysis Performed At [facility] gist Range Method Time Signature Surgical [facility] Pathology ? [facility] Report ? Provider: ?? MESHA MCKNIGHT Pt. Name: ?? GREGORY FATIMA ? Acc #: ?[id number] ?Pt. MRN: ?[id number] ? Col Date: ?? 03/28/2013 ?/Sex: ?1945,(68 [...] areas of hemorrhage and ? calcifications. ? [facility] ? Provider: ?? MESHA MCKNIGHT Pt. Name: ?? NATALYA GREGORY E ? Acc #: ?[id number] ?Pt. MRN: ?[id number] ? Col Date: ?? 03/28/2013 ?/Sex: ?1945,(68 years),Male ? Rec Date: ?? 03/28/2013 ?LOC: ?[facility] ? SURGICAL PATHOLOGY ? SECTIONS/PROCESSING: Performance Analyst sections are subm itted. (R6) ? B [...] Organization Address City/State/[place] [address] CERNER MILLENNIUM Frozen Section Report (03/28/2013 12:03 PM EDT) Component Value Ref Test Analysis Performed At [facility] Range Method Time Signature Frozen CERNER Section ? [facility] Report ? Provider: ?? MESHA MCKNIGHT Pt. Name: ?? GREGORY FATIMA ? Acc #: ?[id number] ?Pt. MRN: ?[id number] ? Col Date: ?? 03/28/2013 ?/Sex: ?1945,(68 years),Male ? Rec Date: ?? 03/28/2013 ?LOC: ?[facility] ? FROZEN SECTION REPORT ? ---Frozen Section Report--- ? Part A - Intraoperati ve gross consultation was performed. ??The case was ? discussed by phone with Dr. Mcknight, and no frozen ? section was performed. ? 03/31/13 ??Verified by: ??César STRANGE, Ruben Yusuf, Sowmya gist ? The attending [facility] gist whose electronic signature appears on this [...] MD PATHOLOGY/CYTOLOGY ORDERABLE S Performing Organization Address City/[facility]/ZIP Code Phon e Number [address] [facility] MILLENNIUM POCT Glucose (03/28/2013 12:00 PM EDT) P athologist Signature POC Glucose 134 60 - 199 CERNER mg/dL [facility] Comment: Supplemental ranges: <110 mg/dL before meals <200 mg/dL all other times of the day Specimen Anatomical Collection Method Collection Time Receive d Time (Source) Location / / Volume Laterality Blood specimen 03/28/2013 12:00 3 (specimen) PM EDT 12:00 PM EDT Mesha Mcknight MD POINT OF CARE TEST ORDERABLE S Performing Organization Address [facility]/ZIP Code Phon e Number [place] [address] [facility] Specimen to Pathology (surgical or derm) (03/28/2013 11:58 AM EDT) Specimen Anatomical Collection Method Collection Time Receive d Time (Source) Location / / Volume Laterality AP Specimen 03/28/2013 11:58 03/28/2013 AM EDT 11:58 AM EDT Narrative [facility] - 03/28/2013 11:58 AM EDT Specimen requisition ordered. ??Separate Pathology report to follow Mesha Mcknight MD PATHOLOGY/CYTOLOGY ORDERABLE S Performing Organization Address City/[facility]/ZIP Code [place] [address] [facility] Antibody screen (03/28/2013 9:37 AM EDT) Analysis Performed At Patho logist Time Signature Ab Screen Negative [facility] Interp [facility] Expires at [id number] [facility] 2358 on: MILLENNIUM Specimen Anatomical Collection Method Collection Time Receive d Time (Source) Location / / Volume Laterality Blood specimen 03/28/2013 9:37 AM 013 9:37 (specimen) EDT AM EDT Resulting Agency Comment Spec In Lab Mesha Mcknight MD BLOOD BANK ORDERABLES Performing Organization Address City/State/ZIP Code Phon e Number [address] CERNER MILLENNIUM ABO/Rh Typing [...] Address City/State/ZIP Code Phon e Number [address] CERNER MILLENNIUM Differential, Automated [...] Organization Address City/State/[place] [address] CERNER MILLENNIUM (ABNORMAL) Basic [...] intervals supplied above were not validated at [facility]. Results from pediatri c patients should be [...] Organization Address City/State/[place] [address] CERNER MILLENNIUM (ABNORMAL) CBC [...] Organization Address City/State/[place] [address] CERNER MILLENNIUM POCT Glucose (03/28/2013 9:17 AM EDT) P athologist Signature POC Glucose 108 60 - 199 CERNER mg/dL [facility] Comment: Supplemental ranges: <110 mg/dL before meals <200 mg/dL all other times of the day Specimen Anatomical Collection Method Collection Time Receive d Time (Source) Location / / Volume Laterality Blood specimen 03/28/2013 9:17 AM 013 9:17 (specimen) EDT AM EDT Mesha Mcknight MD POINT OF CARE TEST ORDERABLE S Performing Organization Address City/[facility]/ZIP Code Phon e Number [address] RAKESH CARVALHOIUM Specimen to [...] Organization Address City/State/[place] [address] CERNER DEVENIUM documented in this encounter Visit Diagnoses Diagnosis Psoriasis - Primary Other psoriasis Chronic systolic heart failure documented [...] Intravenous, EVERY 12 HOURS, First dose on 9/3/13 at 0900, Until Discontinued Given 03/28/2013 9:00 PM EDT 5 mLs documented in this encounter Active and Recently Administered Medications Times are shown in EDT. Scheduled Medication Order 03/27/2013 03/28/2013 03/29/2013 amlodipine (NORVASC) tablet 2.5 mg (CANCELED) 1605 (Given - Provider: Angela Breaux RN) 0900 (Given - Provider: Radha Yao [facility], RN) 2.5 mg, Oral, DAILY, First dose [...] Kesha Gracia RN)2100 (Given - Provider: Kesha Gracia RN)2322 (Given - Provider: Waldo Castaneda RN) 0730 [...] headache) 0738 (Given - Provider: Radha Yao oumar, VAMSI) 650 mg, Oral, EVERY 4 HOURS PRN, [...] override documented in this encounter Care Teams Lead Rider Relationship Specialty Start Date End Date Angela Holliday APRN PCP - General 01/25/13 04/15/[address] [place] [address] documented as of this encounter
--- OUTSIDE RECORDS SUMMARY | 2022-02-18 08:23 | XMS_ITS | Encounter Summary ---
:1945 Author Organization [facility] [place] [address] Care Team Providers Name Role Phone MiyaLokeshAngela STACIE Primary Care Provider Encounter Details Date Type Department Care Team Description 01/16/2014 Hospital Encounter G[facility]ology at [facility] Nohemi Swann, [facility] [place] [address] [facility] [phone] [facility] [place], [place] [address] Social History Tobacco Use Types [...] you need to be checked. [facility] [phone] 8a-5p Same Day Endo [phone] 7a-8p Otherwise contact [phone] and ask to speak to the laundry washer pressure control supervisor Follow up care is a [place] part [...] Swann MD - 01/16/2014 9:49 AM EDT [facility] Operative Note Patient Name: Gregory Fatima : [id number] MR#: [id number] Case Date: 01/16/2014 Surgeon: Surgeon(s) and Role: * Nohemi Swann MD - Primary Preoperative diagnosis: 5 yr surv. Full procedure note is documented under the Procedure section of eDH. documented in this encounter Plan of Treatment Upcoming Encounters Date Type Specialty Care Team Description 02/19/2022 Laboratory Appointment Lab 02/19/2022 Office Visit Cardiology Liz Poole PA [facility] er Cardiology Dept [place], [place] [address] (Wo rk) 03/26/2022 Office Visit Cardiology Vitaliy Nobles MD [facility]ICAL [facility] ER CARDIOLOGY [place], [place] [address] (Wo rk) documented as of [...] Surgical Pathology Report (01/16/2014 9:53 AM EDT) [facility] Method Time Signature Surgical CERNER Pathology ? [facility] Report ? Provider: ?? NOHEMI SWANN ?Pt. Name: ?? SURINDER ALEGRE, GREGORY Mccollum ? Acc #: ?[id number] ?Pt. MRN: ?[id number] ? Col Date: ?? 4 ? /Sex: [...] Organization Address City/State/ZIP Code Phon e Number [address] [facility]NER [facility] Specimen to Pathology (surgical or derm) (01/16/2014 9:53 AM EDT) Specimen Anatomical Collection Method Collection Time Receive d Time (Source) Location / / Volume Laterality AP Specimen 01/16/2014 9:53 AM 201 4 9:53 EDT AM EDT Narrative CERNER MILLENNIUM - 01/16/2014 9:53 AM E DT Specimen requisition ordered. ??Separate Pathology report to follow Nohemi Swann MD PATHOLOGY/CYTOLOGY ORDERABLE S Performing Organization Address City/State/RUST Code Phon e Number [address] CERNER MILLENNIUM Specimen to [...] Organization Address City/State/[place] [address] CERKERI MILLENNIUM COLONOSCOPY (01/16/2014 7:25 AM EDT) [facility] Method Time Signature COLONOSCOPY [facility] Endoscopy Patient Name: Gregory Fatima ? Procedure Date: 01/16/2014 7:25 AM ? N: [id number] ? Date of : 1945 ? Age: 68 ? Order #: [id number] ? Procedure: ? Colonoscopy Indications: ? High [...] Routine documented in this encounter Care Teams Weigher And Crusher Relationship Specialty Start Date End Date Angela Sotelo APRN PCP - General 01/25/13 04/15/15 [address] [place] [address] documented as of this encounter
--- OUTSIDE RECORDS SUMMARY | 2022-02-18 08:23 | XMS_ITS | Encounter Summary ---
:1945 Author Organization [facility] [place] [address] Care Team Providers Name Role Phone MiyaAngela STACIE Primary Care Provider Reason for Visit Reason Comments Post Op voiding trial Encounter Details Date Type Department Care Team Description 04/05/2013 Office Visit Urology [place] [facility] [place]ryl Egan, UTI ([facility] MD tract infection) [facility] (Primary Dx) [place] [address] UROLOGY DEPT [phone] [place], [place] [address] Social History Tobacco Use Types [...] [facility] er Cardiology Dept [place], [place] [address] (Wo rk) 03/26/2022 Office Visit Cardiology Vitaliy Nobles MD [facility] ER CARDIOLOGY [place], [place] [address] (Wo rk) documented as of this encounter Procedures Procedure Name Priority Date/Time Associated Diagnosis Comme nts URINE CULTURE Routine 04/05/2013 11:48 AM UTI (lower urinary R esults for this EDT tract infection) procedure a re in the results section . documented in this encounter Results Urine culture Clean Catch Urine (04/05/2013 11:48 AM EDT) Component Value Ref Test Analysis Performed At [facility] Method Time Signature Urine Culture CERNER ? Patient Name: DON HOANG ? Ordered By: DARRYL EGAN [facility] ? MR#: [id number] ?LOC: ??5B ? /Sex: ??1945 (68 years), [...] S ? Patient: DON HOANG ? MR#: [id number] ? FOOTNOTES ? (1) ? This organism [...] Organization Address City/State/[place] [address] [facility] documented in this encounter Visit Diagnoses Diagnosis UTI (lower urinary tract infection) - Pr imary Urinary tract infection, site not specif ied Chronic systolic heart failure documented in this encounter Care Teams Payroll Machine Operator Relationship Specialty Start Date End Date Angela Holliday APRN PCP - General 01/25/13 04/15/[address] [place] [address] documented as of this encounter
--- OUTSIDE RECORDS SUMMARY | 2022-02-18 08:23 | XMS_ITS | Encounter Summary ---
:1945 Author Organization [facility] [place] [address] Care Team Providers Name Role Phone Miya Angela STACIE Primary Care Provider Encounter Details Date Type Department Care Team Description 04/04/2013 Telephone Urology at [facility] Parker Sanchez MD [facility] [place] [address] UROLOGY DEPT [phone] [place], [place] [address] (Wo rk) Social History Tobacco [...] [facility] er Cardiology Dept [place], [place] [address] (Wo rk) 03/26/2022 Office Visit Cardiology Vitaliy Nobles MD [facility] ER CARDIOLOGY [place], [place] [address] (Wo rk) documented as of this encounter Visit Diagnoses Not on filedocumented in this encounter Care Teams Rig Manager Relationship Specialty Start Date End Date Angela Holliday APRN PCP - General 01/25/13 [address] [place] [address] documented as of this encounter
--- OUTSIDE RECORDS SUMMARY | 2022-02-18 08:23 | XMS_ITS | Encounter Summary ---
:1945 Author Organization [facility] [place] [address] Care Team Providers Name Role Phone Brody Berrios MD Primary Care Provider Reason for Visit Reason Comments Annual Exam Encounter Details Date Type Department Care Team Description 09/22/2011 Follow-Up Dermatology Arik Tipton Psoriasis (Primary Dx); [facility] MD Jorge Personal history of other malignant neop lasm of skin Drive [place] [phone] DERMATOLOGY DEPT . 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 His only complaints tail bone and scalp [...] changes: Arik Tipton MD Section of Dermatology [facility] documented in this encounter Plan of Treatment Upcoming Encounters Date Type Specialty Care Team Description 02/19/2022 Laboratory Appointment Lab 02/19/2022 Office Visit Cardiology Liz Poole PA [facility] Cardiology Dept [place], [place] [address] (Wo rk) 03/26/2022 Office Visit Cardiology Vitaliy Nobles MD [facility] CARDIOLOGY [place], [place] [address] (Wo rk) documented as of this encounter Visit Diagnoses Diagnosis Psoriasis - Primary Other psoriasis Personal history of other malignant neop lasm of skin Chronic systolic heart failure documented in this encounter Care Teams Flame Hardening Machine Setter Relationship Specialty Start Date End Date Brody Berrios MD PCP - General 09/22/[phone] [place] [address] documented as of this encounter
--- OUTSIDE RECORDS SUMMARY | 2022-02-18 08:23 | XMS_ITS | Encounter Summary ---
:1945 Author Organization [facility] [place] [address] Care Team Providers Name Role Phone MiyaLokeshAngela STACIE Primary Care Provider Reason for Visit Reason Onset Date Comments Post-op Problem 04/05/2013 voiding trial Encounter Details Date Type Department Care Team Description 04/05/2013 Telephone Urology at [facility] Blade Smith, Post-op Problem [facility] (voiding trial) [place] [address] UROLOGY DEPT [place] [address] (Wo rk) Social History Tobacco Use Types [...] Liz Poole PA [facility] [place], [place] [address] (Wo rk) 03/26/2022 Office Visit Cardiology Vitaliy Nobles MD [facility] CARDIOLOGY [place], [place] [address] (Wo rk) documented as of this encounter Visit Diagnoses Not on filedocumented in this encounter Care Teams Vp Rheumatology Relationship Specialty Start Date End Date Angela Holilday APRN PCP - General 01/25/13 04/15/[address] [place] [address] documented as of this encounter
--- OUTSIDE RECORDS SUMMARY | 2022-02-18 08:23 | XMS_ITS | Encounter Summary ---
:1945 Author Organization [place] [address] Care Team Providers Name Role Phone Angela Holliday APRN Primary Care Provider Encounter Details Date Type Department Care Team Description 03/30/2013 Telephone General Surgery at [facility] Cliff Nevarez, [place] [address] Social History Tobacco Use Types Packs/Day [...] [facility] Cardiology Dept [place], [place] [address] (Wo rk) 03/26/2022 Office Visit Cardiology Vitaliy Nobles MD [facility] CARDIOLOGY [place], [place] [address] (Wo rk) documented as of this encounter Visit Diagnoses Not on filedocumented in this encounter Care Teams Utilization Review Specialist Relationship Specialty Start Date End Date Angela Holliday APRN PCP - General 01/25/13 04/15/[address] [place] [address] documented as of this encounter
--- OUTSIDE RECORDS SUMMARY | 2022-02-18 08:23 | XMS_ITS | Encounter Summary ---
:1945 Author Organization [facility] [address] Care Team Providers Name Role Phone Angela Holliday APRN Primary Care Provider Encounter Details Date Type Department Care Team Description 03/15/2013 Telephone General Surgery at [facility] Maddison Key, [place] [address] Social History Tobacco Use Types Packs/Day [...] PA [facility] Cardiology Dept [place], [place] [address] (Wo rk) 03/26/2022 Office Visit Cardiology Vitaliy Nobles MD [facility] CARDIOLOGY [place], [place] [address] (Wo rk) documented as of this encounter Visit Diagnoses Not on filedocumented in this encounter Care Teams Floor Worker Transfer [place] Relationship Specialty Start Date End Date Angela Holliday APRN PCP - General 01/25/13 [address] [place] [address] documented as of this encounter
--- OUTSIDE RECORDS SUMMARY | 2022-02-18 08:23 | XMS_ITS | Encounter Summary ---
:1945 Author Organization [facility] [place] [address] Care Team Providers Name Role Phone MiyaAngela STACIE Primary Care Provider Encounter Details Date Type Department Care Team Description 11/27/2013 Orders Only Urology at [facility] Blade Smith, Urinary retention [facility] (Primary Dx) [place] [address] UROLOGY DEPT [place], [place] [address] Social History Tobacco Use Types [...] [facility] er Cardiology Dept [place], [place] [address] (Wo rk) 03/26/2022 Office Visit Cardiology Vitaliy Nobles MD [facility] ER CARDIOLOGY [place], [place] [address] (Wo rk) documented as of [...] Organization Address City/State/[place] [address] CERNER MILLENNIUM documented in this encounter Visit Diagnoses Diagnosis Urinary retention - Primary Retention of urine, unspecified Chronic systolic heart failure documented in this encounter Care Teams Museum Registrar Relationship Specialty Start Date End Date Angela Holliday APRN PCP - General 01/25/13 04/15/[address] [place] [address] documented as of this encounter
--- OUTSIDE RECORDS SUMMARY | 2022-02-18 08:23 | XMS_ITS | Encounter Summary ---
:1945 Author Organization [facility] [place] [address] Care Team Providers Name Role Phone MiyaAngela STACIE Primary Care Provider Encounter Details Date Type Department Care Team Description 04/26/2014 Office Visit Endocrinology at [facility] Albertina Palmer, Papillary thyroid [facility] [place] [address] CENTER [phone] ENDOCRINOLOGY DEPT [place] [address] Social History Tobacco Use Types Packs/Day Years [...] on [place]. Rosalind Palmer Endocrine Staff Physician [facility] Rosalind Palmer MD - 04/26/2014 8:39 AM [...] one yr Rosalind Palmer Endocrine Staff Physician [facility] documented in this encounter Plan of Treatment Upcoming Encounters Date Type Specialty Care Team Description 02/19/2022 Laboratory Appointment Lab 02/19/2022 Office Visit Cardiology Liz Poole PA [facility] Cardiology Dept [place], [place] [address] (Wo rk) 03/26/2022 Office Visit Cardiology Vitaliy Nobles MD [facility] CARDIOLOGY [place], [place] [address] (Wo rk) documented as of [...] athologist Signature Thyroglobulin <0.4 <=54.9 CERNER ng/mL [facility] Comment: Interpret with caution. Tg [...] BR et al. J Clin Endo Metab 1999;84:8785-0340). Assay performed using the DPC Immulite T [...] Organization Address City/State/[place] [address] CERNER MILLENNIUM (ABNORMAL) TSH [...] Organization Address City/State/[place] [address] RAKESH WALKER documented in this encounter Visit Diagnoses Diagnosis Papillary thyroid carcinoma Malignant neoplasm of thyroid gland Chronic systolic heart failure documented in this encounter Care Teams Stopper Maker Relationship Specialty Start Date End Date Angela Holliday APRN PCP - General 01/25/13 04/15/[address] [place] [address] documented as of this encounter
--- OUTSIDE RECORDS SUMMARY | 2022-02-18 08:23 | XMS_ITS | Encounter Summary ---
:1945 Author Organization [facility] [place] [address] Care Team Providers Name Role Phone Angela Holliday APRN Primary Care Provider Encounter Details Date Type Department Care Team Description 03/30/2013 Telephone General Surgery at [facility] Cliff Nevarez, [place] [address] Social History Tobacco Use Types Packs/Day [...] [facility] Dept [place], [place] [address] (Wo rk) 03/26/2022 Office Visit Cardiology Vitaliy Nobles MD [facility] ER CARDIOLOGY [place], [place] [address] (Wo rk) documented as of this encounter Visit Diagnoses Not on filedocumented in this encounter Care Teams Information Systems Manager Relationship Specialty Start Date End Date Angela Holliday APRN PCP - General 01/25/13 04/15/[address] [place] [address] documented as of this encounter
--- OUTSIDE RECORDS SUMMARY | 2022-02-18 08:23 | XMS_ITS | Encounter Summary ---
:1945 Author Organization [facility] [place] [address] Care Team Providers Name Role Phone Angela oHlliday APRN Primary Care Provider Encounter Details Date Type Department Care Team Description 03/28/2013 Surgery Main Operating Room Mesha Mcknight, THYROIDECTOMY, [facility] 15.04[facility] [address] Siddiqu[place] [address] [place] [address] [phone] (Wo rk) Social History Tobacco Use Types [...] please call the General Surgery nurse at [phone], since this may mean that you need morecalcium. Follow-up Appointment: Will be scheduled with Dr. Mcknight in 6 weeks Date and time as well as any required labs will be mailed to you Please call [phone] to confirm date and time of your [...] by calcium supplementation. Phone number for questions: [phone] before 5 PM weekdays [phone] after 5 PM and on weekends/holidays Please follow up with Urology as per their recommendations for Bob removal AttachmentsThe following attachments cannot be sent through Care Everywhere. THYROIDECTOMY: WHAT TO EXPECT AT HOME (YI)URINARY CATHETER CARE: AFTER YOUR VISIT (YI)documented in this encounter Medications at Time of [...] meds effective. Bob draining slightly pink-tinged urine. JANAURY at right neck intact. Lungs clear; oxygen [...] is a 68 y.o. male presents to [facility] today for total thyroidectomy. See full [...] Willams MD - 03/28/2013 3:43 PM EDT [facility] Operative Note Patient Name: Gregory Fatima : [id number] MR#: [id number] Case Date: 03/28/2013 Surgeon: Surgeon(s) and Role: [...] patient was extubated and taken to the [facility] in stable condition. At the end [...] Operative Note Patient Name: Gregory Fatima : [id number] MR#: [id number] Case Date: 03/28/2013 Surgeon: Surgeon(s) and Role: [...] Poole PA [facility] Cardiology Dept [place], [place] [address] (Wo rk) 03/26/2022 Office Visit Cardiology Vitaliy Nobles MD [facility] CARDIOLOGY [place], [place] [address] (Wo rk) documented as of [...] Organization Address City/State/ZIP Code Phon e Number [address] CERNER MILLENNIUM (ABNORMAL) POCT [...] Organization Address City/State/[place] [address] CERNER MILLENNIUM (ABNORMAL) POCT [...] Organization Address City/State/[place] [address] CERNER MILLENNIUM (ABNORMAL) POCT [...] S Performing Organization Address City/[facility]/ZIP Code Phon e Number [address] CERNER MILLENNIUM (ABNORMAL) POCT [...] S Performing Organization Address City/[facility]/ZIP Code Phon e Number [address] CERNER MILLENNIUM (ABNORMAL) POCT [...] Organization Address City/State/[place] [address] CERNER MILLENNIUM (ABNORMAL) POCT [...] S Performing Organization Address City/[facility]/ZIP Code Phon e Number [address] CERNER MILLENNIUM (ABNORMAL) POCT [...] S Performing Organization Address City/[facility]/[place] [address] CERNER MILLENNIUM Specimen to Pathology (surgical or derm) (03/28/2013 12:14 PM EDT) Specimen Anatomical Collection Method Collection Time Receive d Time (Source) Location / / Volume Laterality AP Specimen 03/28/2013 12:14 03/28/2013 PM EDT 12:14 PM EDT Narrative [facility] - 03/28/2013 12:14 PM EDT Specimen requisition ordered. ??Separate Pathology report to follow Mesha Mcknight MD PATHOLOGY/CYTOLOGY ORDERABLE S Performing Organization Address City/State/[place] [address] [facility] Pathology Addendum Report (03/28/2013 12:03 PM EDT) Component Value Ref Test Analysis Performed At [facility] Method Time Signature Addendum [facility] Report ? [facility] ? Provider: ?? MESHA MCKNIGHT Pt. Name: ?? GREGORY FATIMA ? Acc #: ?[id number] ?Pt. MRN: ?[id number] ? Col Date: ?? 03/28/2013 ?/Sex: ?1945,(68 [...] S Performing Organization Address [facility]/[place] [address] [facility] Surgical Pathology Report (03/28/2013 12:03 PM EDT) Component Value Ref Test Analysis Performed At [facility] gist Range Method Time Signature Surgical [facility] Pathology ? [facility] Report ? Provider: ?? MESHA MCKNIGHT Pt. Name: ?? GREGORY FATIMA ? Acc #: ?[id number] ?Pt. MRN: ?[id number] ? Col Date: ?? 03/28/2013 ?/Sex: ?1945,(68 [...] areas of hemorrhage and ? calcifications. ? [facility] ? Provider: ?? MESHA MCKNIGHT Pt. Name: ?? NATALYA GREGORY E ? Acc #: ?[id number] ?Pt. MRN: ?[id number] ? Col Date: ?? 03/28/2013 ?/Sex: ?1945,(68 years),Male ? Rec Date: ?? 03/28/2013 ?LOC: ?[facility] ? SURGICAL PATHOLOGY ? SECTIONS/PROCESSING: Manager Provider Relations sections are subm itted. (R6) ? B [...] Organization Address City/State/[place] [address] CERNER MILLENNIUM Frozen Section Report (03/28/2013 12:03 PM EDT) Component Value Ref Test Analysis Performed At [facility] Method Time Signature Frozen CERNER Section ? [facility] ? Provider: ?? MESHA MCKNIGHT Pt. Name: ?? GREGORY FATIMA ? Acc #: ?[id number] ?Pt. MRN: ?[id number] ? Col Date: ?? 03/28/2013 ?/Sex: ?1945,(68 years),Male ? Rec Date: ?? 03/28/2013 ?LOC: ?[facility] ? FROZEN SECTION REPORT ? ---Frozen Section Report--- ? Part A - Intraoperati ve gross consultation was performed. ??The case was ? discussed by phone with Dr. Mcknight, and no frozen ? section was performed. ? 03/31/13 ??Verified by: ??César STRANGE, Ruben Yusuf, Sowmya gist ? The attending [facility] gist whose electronic signature appears on [...] S Performing Organization Address City/[facility]/ZIP Code Phon e Number [address] [facility] MILLENNIUM POCT Glucose (03/28/2013 12:00 PM EDT) P athologist Signature POC Glucose 134 60 - 199 CERNER mg/dL [facility] Comment: Supplemental ranges: <110 mg/dL before meals <200 mg/dL all other times of the day Specimen Anatomical Collection Method Collection Time Receive d Time (Source) Location / / Volume Laterality Blood specimen 03/28/2013 12:00 3 (specimen) PM EDT 12:00 PM EDT Mesha Mcknight MD POINT OF CARE TEST ORDERABLE S Performing Organization Address [facility]/ZIP Code Phon e Number [place] [address] [facility] Specimen to Pathology (surgical or derm) (03/28/2013 11:58 AM EDT) Specimen Anatomical Collection Method Collection Time Receive d Time (Source) Location / / Volume Laterality AP Specimen 03/28/2013 11:58 03/28/2013 AM EDT 11:58 AM EDT N[facility]ative [facility] 03/28/2013 11:58 AM EDT Specimen requisition ordered. ??Separate Pathology report to follow Mesha Mcknight MD PATHOLOGY/CYTOLOGY ORDERABLE S Performing Organization Address City/[facility]/ZIP [place] [address] [facility] Antibody screen (03/28/2013 9:37 AM EDT) Analysis Performed At Patho logist Time Signature Ab Screen Negative [facility] Interp [facility] Expires at [id number] [facility] 2358 on: MILLENNIUM Specimen Anatomical Collection Method Collection Time Receive d Time (Source) Location / / Volume Laterality Blood specimen 03/28/2013 9:37 AM 013 9:37 (specimen) EDT AM EDT Resulting Agency Comment Spec In Lab Mesha Mcknight MD BLOOD BANK ORDERABLES Performing Organization Address City/State/ZIP Code Phon e Number [address] CERNER MILLENNIUM ABO/Rh Typing [...] Organization Address City/State/ZIP Code Phon e Number [address] CERNER MILLENNIUM Differential, Automated [...] Address City/State/[place] [address] CERNER MILLENNIUM (ABNORMAL) Basic [...] intervals supplied above were not validated at [facility]. Results from pediatri c [...] Organization Address City/State/[place] [address] CERNER MILLENNIUM (ABNORMAL) CBC [...] Organization Address City/State/[place] [address] CERNER MILLENNIUM POCT Glucose (03/28/2013 9:17 AM EDT) P athologist Signature POC Glucose 108 60 - 199 CERNER mg/dL [facility] Comment: Supplemental ranges: <110 mg/dL before meals <200 mg/dL all other times of the day Specimen Anatomical Collection Method Collection Time Receive d Time (Source) Location / / Volume Laterality Blood specimen 03/28/2013 9:17 AM 013 9:17 (specimen) EDT AM EDT Mesha Mcknight MD POINT OF CARE TEST ORDERABLE S Performing Organization Address City/[facility]/ZIP Code Phon e Number [address] RAKESH CARVALHOIUM Specimen to [...] Organization Address City/State/[place] [address] CERNER GRISELDAENNIUM documented in [...] Provider: Cami Baxter RN)1341 (Given - Provider: Agnela Breaux RN)1420 (Given - Provider: Cami Baxter [...] override documented in this encounter Care Teams Aviation Survival Technician Relationship Specialty Start Date End Date Angela Holliday APRN PCP - General 01/25/13 04/15/15 [address] [place] [address] documented as of this encounter
--- OUTSIDE RECORDS SUMMARY | 2022-02-18 08:23 | XMS_ITS | Encounter Summary ---
:1945 Author Organization [facility] [place] [address] Care Team Providers Name Role Phone Angela Holliday APRN Primary Care Provider Encounter Details Date Type Department Care Team Description 04/05/2013 Office [place] [address] Social History Tobacco Use Types Packs/Day [...] Liz Poole PA [facility] er Cardiology Dept [place], [place] [address] (Wo rk) 03/26/2022 Office Visit Cardiology Vitaliy Nobles MD [facility] ER CARDIOLOGY [place], [place] [address] (Wo rk) documented as of this encounter Visit Diagnoses Not on filedocumented in this encounter Care Teams Paediatrician Relationship Specialty Start Date End Date Angela Holliday APRN PCP - General 01/25/13 04/15/[address] [place] [address] documented as of this encounter
--- OUTSIDE RECORDS SUMMARY | 2022-02-18 08:23 | XMS_ITS | Encounter Summary ---
:1945 Author Organization [facility] [place] [address] Care Team Providers Name Role Phone Lovely Vicente MD Primary Care Provider Reason for Visit Reason Comments Skin Check Encounter Details Date Type Department Care Team Description 04/16/2015 Follow-Up Dermatology at [facility] Forman x of melanoma of skin; Abdelrahman HOOPER MD Multiple benign nevi [address] [place] [address] [facility] [place], [place] [address] (Wo rk) Social History [...] Diagnostic, Drum (ACCU-CHEK COMPACT TEST) Strip by [facility]Non- Drug; Combo Route) route [...] encounter. Rigoberto Garcia MD Section of Dermatology [facility] documented in this encounter Plan of Treatment Upcoming Encounters Date Type Specialty Care Team Description 02/19/2022 Laboratory Appointment Lab 02/19/2022 Office Visit Cardiology Liz Po[facility] PA [facility] Cardiology Dept [place], [place] [address] (Wo rk) 03/26/2022 Office Visit Cardiology Vitaliy Nobles MD [facility] ER CARDIOLOGY [place], [place] [address] (Wo rk) documented as of this encounter Visit Diagnoses Diagnosis Hx of melanoma of skin Personal history of malignant melanoma o f skin Multiple benign nevi Benign neoplasm of skin, site unspecifie d Chronic systolic heart failure documented in this encounter Care Teams Junior Art Director Relationship Specialty Start Date End Date Lovely Vicente MD PCP - General 04/16/[address] [place] [address] documented as of this encounter
--- OUTSIDE RECORDS SUMMARY | 2022-02-18 08:23 | XMS_ITS | Encounter Summary ---
:1945 Author Organization [facility] [place] [address] Care Team Providers Name Role Phone NeilSom conner STACIE Primary Care Provider Reason for Visit Reason Comments Establish Care OBST GOITER Encounter Details Date Type Department Care Team Description 01/25/2013 Office Visit General Surgery at Manny Mcknight er colloid, toxic, [facility] MD Eliseo nodular (Primary Dx) [facility] [place] GENERAL SURGERY [address] [place], [place] [address] [phone] Social History Tobacco Use Types Packs/Day Years [...] the thyroid gland were obtained using a [employer] MicroMaxx and an HFL38/13-6 broadband linear array [...] on physical exam. ROS: No H/O asthma, [place], stroke, pulmonary embolus or phlebitis. Comprehensive review [...] agrees to proceed. Will sign in through [facility]. Consent is signed. Send copy to Dr. SOM HOLLIDAY APRN and Elijah Elias MD. documented in this encounter Plan of Treatment Upcoming Encounters Date Type Specialty Care Team Description 02/19/2022 Laboratory Appointment Lab 02/19/2022 Office Visit Cardiology Liz Poole PA [facility] er Cardiology Dept [place], [place] [address] (Wo rk) 03/26/2022 Office Visit Cardiology Vitaliy Nobles MD [facility] CARDIOLOGY [place], [place] [address] (Wo rk) documented as of [...] 406 ms MUSE SYSTEM (Bezet) Calculated P [place] 52 degrees MUSE SYSTEM Calculated R [place] 0 degrees MUSE SYSTEM Calculated T [place] 40 degrees MUSE SYSTEM INTERPRETATION Normal sinus [...] without mention of thyrotoxic crisis or storm Chronic systolic heart failure documented in this encounter Care Teams Weight Clerk Relationship Specialty Start Date End Date Som Holliday APRN PCP - General 01/25/13 04/15/[address] [place] [address] documented as of this encounter
--- OUTSIDE RECORDS SUMMARY | 2022-02-18 08:23 | XMS_ITS | Encounter Summary ---
:1945 Author Organization [facility] [address] Care Team Providers Name Role Phone Angela Sotelo APRN Primary Care Provider Encounter Details Date Type Department Care Team Description 01/16/2014 Surgery Gastroenterology at [facility] Nohemi Swann, COLONOSCOPY, [facility] Jorge mcnamara MD POLYPECTOMY, [place] [address] [facility] LESION BY SNARE ([facility] [phone] DR Cintron) GASTROENTEROLOGY DEPT. [place], [place] [address] Social History Tobacco Use Types [...] you need to be checked. [facility] [phone] 8a-5p Same Day Endo [phone] 7a-8p Otherwise contact [phone] and ask to speak to the quartz miner blasting virtualization engineer Follow up care is a shel[place] part [...] Swann MD - 01/16/2014 9:49 AM EDT [facility] Operative Note Patient Name: Gregory Fatima : [id number] MR#: [id number] Case Date: 01/16/2014 Surgeon: Surgeon(s) and Role: * Nohemi Swann MD - Primary Preoperative diagnosis: 5 yr surv. Full procedure note is documented under the Procedure section of eDH. documented in this encounter Plan of Treatment Upcoming Encounters Date Type Specialty Care Team Description 02/19/2022 Laboratory Appointment Lab 02/19/2022 Office Visit Cardiology Liz Poole PA [facility] er Cardiology Dept [place], [place] [address] (Wo lissa) 03/26/2022 Office Visit Cardiology Vitaliy Nobles MD [facility] ER DR TADEO [place], [place] [address] (Mikayla alcaraz) documented as of [...] Surgical Pathology Report (01/16/2014 9:53 AM EDT) [facility] Method Time Signature Surgical CERNER Pathology ? [facility] Report ? Provider: ?? NOHEMI SWANN ?Pt. Name: ?? SURINDER ALEGRE, GREGORY Mccollum ? Acc #: ?[id number] ?Pt. MRN: ?[id number] ? Col Date: ?? 4 ? /Sex: [...] Organization Address City/State/[place] [address] CERNER MILLENNIUM Specimen to [...] ORDERABLE S Performing Organization Address City/[facility]/[place] [address] CERNER MILLENNIUM Specimen to [...] MD PATHOLOGY/CYTOLOGY ORDERABLE S Performing Organization Address [facility]/State/[place] [address] CERKERI MILLENNIUM COLONOSCOPY (01/16/2014 7:25 AM EDT) [facility] Method Time Signature COLONOSCOPY [facility] Endoscopy Patient Name: Gregory Fatima ? Procedure Date: 01/16/2014 7:25 AM ? N: [id number] ? Date of : 1945 ? Age: 68 ? Order #: [id number] ? Procedure: ? Colonoscopy Indications: ? High [...] Laterality 01/16/2014 7:25 AM EDT Angela Sotelo CHIEF SCIENCE OFFICER GENERAL SURGICAL ORDERABLES Performing Organization Address City/State/ZIP [...] Routine documented in this encounter Care Teams Portable Irrigation Operator Relationship Specialty Start Date End Date Angela Sotelo APRN PCP - General 01/25/13 04/15/[address] [place] [address] documented as of this encounter
--- OUTSIDE RECORDS SUMMARY | 2022-02-18 08:23 | XMS_ITS | Encounter Summary ---
:1945 Author Organization [facility] [place] [address] Care Team Providers Name Role Phone Miya Angela STACIE Primary Care Provider Encounter Details Date Type Department Care Team Description 04/24/2013 Telephone [facility]rology at [facility] Zhen Bowman [place] [address] UROLOGY DEPT [phone] [place], [place] [address] (Wo rk) Social History Tobacco [...] Poole PA [facility] Cardiology Dept [place], [place] [address] (Wo rk) 03/26/2022 Office Visit Cardiology Vitaliy Nobles MD [facility] CARDIOLOGY [place], [place] [address] (Wo rk) documented as of this encounter Visit Diagnoses Not on filedocumented in this encounter Care Teams History Department Chair Relationship Specialty Start Date End Date Angela Holliday APRN PCP - General 01/25/13 04/15/[address] [place] [address] documented as of this encounter
--- OUTSIDE RECORDS SUMMARY | 2022-02-18 08:23 | XMS_ITS | Encounter Summary ---
:1945 Author Organization [facility] [place] [address] Care Team Providers Name Role Phone Angela Holliday APRN Primary Care Provider Reason for Visit Reason Comments Skin Check Encounter Details Date Type Department Care Team Description 07/31/2013 Follow-Up Dermatology at Rig[facility]to Forman eoplasm of unspecified nature of bone, soft tissue, and skin (Primary Dx); Abdelrahman HOOPER MD Seborrheic psoriasis- scalp and ingtergl uteal area; [address] [facility] Atypical nevus [place] [address] [facility] [place], [place] [address] (Wo rk) Social History Tobacco Use Types Packs/Day Years Used Date Former Smoker Alcohol Use Standard Drinks/Week Comments No 0 (1 standard drink = 0.6 oz pure alcoho l) Sex Assigned at Date Recorded Not on file documented as of this encounter Progress Notes Ginny Christainsen LPN - 07/31/2013 7:58 AM EST Images from the original note were not included. DERMATOLOGY ESTABLISHED PATIENT CLINIC NOTE Date of service: 07/31/2013 Gregory Hoang : 1945 Provider: Rigoberto Garcia MD PROBLEM: skin cancer screening SKIN HISTORY: 0.98 mm with a Eed Level IV, high on his mid back [...] encounter. Rigoberto Garcia MD Section of Dermatology [facility] documented in this encounter Plan of Treatment Upcoming Encounters Date Type Specialty Care Team Description 02/19/2022 Laboratory Appointment Lab 02/19/2022 Office Visit Cardiology Liz Poole PA [facility] Cardiology [place], [place] [address] (Wo rk) 03/26/2022 Office Visit Cardiology Vitaliy Nobles MD [facility] CARDIOLOGY [place], [place] [address] (Wo rk) Scheduled Orders Name [...] Component Value Ref Test Analysis Performed At [facility] gist Range Method Time Signature Surgical CERNER Pathology ? [facility] Report ? Provider: ?? DEION III, RIGOBERTO Pt. Name: ?? GREGORY HOANG ?A ? Acc #: ?[id number] ? Pt. ? Col Date: ?? 07/31/2013 [...] 0.9 x 0.8 x 0.2 cm. ? [facility] ? Provider: ?? JUSTINL III, RIGOBERTO Pt. Name: ?? GREGORY HOANG ?A ? Acc #: ?[id number] ? Pt. ? Col Date: ?? 07/31/2013 [...] MD PATHOLOGY/CYTOLOGY ORDERABLE S Performing Organization Address City/[facility]/[place] [address] CERNER MILLENNIUM Specimen to [...] MD PATHOLOGY/CYTOLOGY ORDERABLE S Performing Organization Address City/[facility] [place] [address] CERNER MILLENNIUM documented in this encounter Visit Diagnoses Diagnosis Neoplasm of unspecified nature of bone, soft tissue, and skin - Primary Seborrheic psoriasis- scalp and ingtergl uteal area Other psoriasis Atypical nevus of abdominal wall Benign neoplasm of skin of trunk, except scrotum Chronic systolic heart failure documented in this encounter Care Teams Certified Veterinary Technician Relationship Specialty Start Date End Date Angela Holliday APRN PCP - General 01/25/13 04/15/[address] [place] [address] documented as of this encounter
--- OUTSIDE RECORDS SUMMARY | 2022-02-18 08:24 | XMS_ITS | Encounter Summary ---
:1945 Author Organization [facility] Address [address] [place] [address] Care Team Providers Name Role Phone Lovely Vicente MD Primary Care Provider Encounter Details Date Type Department Care Team Description 04/04/2021 Lab Requisition [facility] Outr Resulting Lab, Pathology & Laboratory Provider [facility] [address] [place] [address] Social History Tobacco Use Types Packs/Day Years [...] (04/03/2021 12:15 EDT) Giardia and Cryptosporidium Cryptosporidium [facility] Cryptosporidium Antigen Neg and Antigen Neg and CENTER Giardia Antigen Neg Giardia Antigen Neg LABORATORY SERVICES Specimen Feces - Specimen from rectum (specimen) Performing Organization Address City/State/ZIP Code Phon e Number [facility] [address] [place] [address] SERVICES documented in this encounter Visit Diagnoses Not on filedocumented in this encounter Care Teams Benefits Representative Relationship Specialty Start Date End Date Lovely Vicente MD PCP - General 07/13/14 documented as of this encounter
--- OUTSIDE RECORDS SUMMARY | 2022-02-18 08:24 | XMS_ITS ---
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 Problem Critical ischemia I99.8 Active of lower extremity Problem Atherosclerosis I70.90 Active 3871 6007 Problem Type 2 diabetes E11.628 Active mellitus with other skin complications Problem 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 40 ; Acquired deformi ty of right foot M21.961 ; L luis term current use of i nsulin Z79.4 ; History of art erial bypass of lower extremi ty Z95.828 ; Atherosclerosis I70.90 and History of Lisfr anc amputation of fo ot Z89.439 [facility] Feb, Type 2 diabet es mellitus [address] [place] with diabe tic neuropathy, [address] unspecified E11. 40 ; Acquired deformi ty of right foot M21.961 ; L luis term current use of i nsulin Z79.4 ; History of art erial bypass of lower extremi ty Z95.828 ; Atherosclerosis I70.90 and History of Lisfr anc amputation of fo ot Z89.439 [facility] November, [place] [address] [facility] [facility] November, Type 2 [place] [address] with diabeti c neuropathy, unspecified E11. 40 ; Acquired deformi ty of right foot M21.961 ; L luis term current use of i nsulin Z79.4 ; History of art erial bypass of lower extremi ty Z95.828 ; Atherosclerosis I70.90 and History of Lisfr anc amputation of fo ot Z89.439 [facility] 10 Aug, 2019 Type 2 [place] [address] with other skin complications E1 1.628 ; Tinea pedis of l eft foot B35.3 ; Type 2 d iabetes mellitus with di abetic neuropathy, unsp ecified E11.40 ; Acquire d deformity of right foot M2 1.961 ; [facility] current use of insulin Z79.4 ; History of arterial bypass of lower extremity Z95.828 and Athe rosclerosis I70.90 [facility] Jun, [place] [address] [address] Jun, [place] [address] [address] Jun, Type 2 diabet es mellitus [place], [place] with other skin [address] complications E1 1.628 ; Acquired deformi ty of right foot M21.961 ; T ype 2 diabetes mellitu s with diabetic neuropa thy, unspecified E11. 40 ; roasterman current use of insulin Z79.4 and Histor y of arterial bypass of lower extremity Z95.82 8 [facility] Feb, Type 2 [place] [address] with other s kin complications E1 1.628 ; Acquired deformi ty of right foot M21.961 ; T ype 2 diabetes mellitu s with diabetic neuropa thy, unspecified E11. 40 ; [facility] current use of insulin Z79.4 and Histor y of arterial bypass of lower extremity Z95.82 8 [facility] November, Tinea pedis o f left foot [place], [place] B35.3 ; Ty pe 2 diabetes [address] mellitus with ot her skin complications E1 1.628 ; Acquired deformi ty of right foot M21.961 ; T ype 2 diabetes mellitu s with diabetic neuropa thy, unspecified E11. 40 ; ro[facility]man current use of insulin Z79.4 and Histor y of arterial bypass of lower extremity Z95.82 8 [facility] November, [place] [address] [facility] Aug, Type 2 diabet es mellitus [place], [place] with diabe tic neuropathy, [address] unspecified E11. 40 ; Acquired deformi ty of right foot M21.961 ; P eripheral arterial disease I73.9 ; History of arter ial bypass of lower extremi ty Z95.828 ; [facility] curren t use of insulin Z79.4 an d History of Lisfranc amputat ion of foot Z89.439 UNKNOWN Jul, [facility] 11 Jun, 2018 Type 2 [place] [address] with diabeti c neuropathy, unspecified E11. 40 [facility] Apr, Edema of both legs R60.0 ; [place], [place] Acquired d eformity of right [address] foot M21.961 ; P eripheral arterial disease I73.9 ; History of arter ial bypass of lower extremi ty Z95.828 ; roasterman curren t use of insulin Z79.4 an d Type 2 diabetes mellitu s with diabetic neuropa thy, unspecified E11. 40 [facility] Mar, [place] [address] [address] Mar, Edema of both legs R60.0 ; [place] Acquired d eformity of right [address] foot M21.961 ; P eripheral arterial disease I73.9 ; History of arter ial bypass of lower extremi ty Z95.828 ; roasterman curren t use of insulin Z79.4 an d Type 2 diabetes mellitu s with diabetic neuropa thy, unspecified E11. 40 [facility] Feb, Edema of both legs R60.0 ; [place] [address] Ulcer of lef t calf, limited to breakdown of skin L97.221 ; Acquired defor mity of right foot M21.9 61 ; Peripheral arter ial disease I73.9 ; History of arterial bypass of lower extremity Z95.828 ; Long t erm current use of insulin Z 79.4 and Type 2 diabetes mellitus with diabetic ne uropathy, unspecified E11. 40 [facility] Feb, [place] [address] [facility] Feb, Edema of both legs R60.0 ; [place] [address] Ulcer of rig ht calf, limited to [...] uropathy, unspecified E11. 40 [facility] Feb, [place] [address] [facility] [address] [facility] [address] Feb, [place] [address] [facility] [address] [facility] Jan, [place] [address] [facility] [address] [facility] Jan, [place] [address] [facility] [address] [facility] [address] Jan, [place] [address] [facility] [address] [facility] [address] Jan, [place] [address] [facility] [address] [facility] [address] Jan, [place] [address] [facility] [address] Dec, [place] [address] [facility] [address] Dec, [place] [address] [facility] [address] [address] Dec, [place] [address] [facility] [address] Dec, [place] [address] [facility] Dec, [place] [address] [facility] [address] [facility] [address] Dec, [place] [address] [facility] November, [place] [address] [facility] November, [place] [address] [facility] November, [place] [address] [facility] November, [place] [address] [facility] November, [place] [address] [facility] November, [place] [address] UNKNOWN November, [facility] [address] November, OFFICE [place] [address] [facility] November, [place], [place] [address] [facility] Oct, [place] [address] [facility] Oct, [place] [address] [facility] Oct, [place] [address] [facility] [address] 18 Oct, 2017 [place] [address] [facility] 16 Oct, 2017 [place] [address] [facility] [address] 16 Oct, 2017 [facility] [address] [facility] Oct, [place] [address] [facility] Oct, [place], [place] [address] [facility] Oct, [place] [address] [facility] [address] Sep, [facility] [address] [facility] Sep, [place] [address] [facility] [address] Sep, [place] [address] [facility] [address] Sep, [place] [address] [facility] [address] Sep, [place] [address] [facility] [address] Sep, Critical ischemi a of lower [place] [address] extremity I 99.8 ; Local infection of the skin and subcutaneous tis lindsey, unspecified L08. 9 and Type 2 diabetes mellitu s with other skin complicatio ns E11.628 [facility] Sep, [place] [address] [facility] [address] [facility] Sep, [place] [address] [facility] [address] Sep, [place] [address] [facility] [address] [facility] [address] 14 Sep, [address] [place] [address] [facility] Sep, [place] [address] [facility] Sep, [place] [address] [facility] Sep, [place] [address] [facility] Sep, [place] [address] [facility] [address] [facility] [address] Aug, [place] [address] [facility] [address] Aug, [facility] [address] [facility] [address] Aug, [place] [address] SURGERY [facility] Aug, [place] [address] SURGERY [facility] Aug, [place] [address] [facility] Aug, [place] [address] ORTHOPEDIC OFFICE [facility] Aug, Pre-op exam Z01.818 [place] [address] [facility] Aug, [place] [address] [facility] Aug, [place] [address] [facility] Aug, [place] [address] IMMUNIZATIONS No Known Immunizations SOCIAL HISTORY Qualifiers [...] subcutaneously 22 24h Active units/mL daily Pen Wellman Active Ciclopirox Externally Twice 1 application 12h [...] For Report MR Lower Ext R w/o ([id number]) 2017-09-16 See Below For Report X Foot [...] 2017-09-16 RESULT 1 [id number] RESULT 2 RAEROB PT/INR 2017-09-14 PT 13.2 9.3-11.4 INR 1.3 SED RATE 2017-09-14 ESR 35 0-20 CRP-INFLAM 2017-09-14 CRP 0.8 0.0-0.9 CBC WITH AUTO DIFF 2017-09-14 WBC 7.9 [...] 8.1 MO% 9.9 EO% 1.9 BA% 0.4 BASEMET 2017-09-14 GLUC 134 74-106 BUN 26 7-18 CREATS 1.13 0.55-1.30 EGFR >60 >=60 NA 138 136-144 K+ 4.4 3.7-5.0 CL 100 98-108 CO2 31 22-32 CA 8.9 8.5-10.1 X Foot R 3V 2017-09-09 See Below For Report SED RATE 2017-09-09 ESR 30 0-20 PREALBUMIN 2017-09-09 PREALBUMIN 23 9-32 CRP-INFLAM 2017-09-09 CRP 1.1 0.0-0.9 CBC WITHOUT DIFF (Hemogram) 2017-09-09 WBC 7.9 4.0-12.0 RBC 4.0 4.5-6.0 HGB 10.7 13.5-18.0 HCT 36.7 42.0-52.0 MCV 93 78-100 MCH 27.0 27.0-32.0 MCHC 29.2 32.0-36.0 RDW 17.3 11.0-14.0 PLT 248 140-440 ALBUMIN 2017-09-09 ALB 3.3 3.4-5.0 REASON FOR VISIT acquired diabetic deformity 3 [...] A1c 03/04/18 - 6.7, [facility] [facility], f/u - bilateral leg edema, Pt [...] at wound center,lab work done 03/07/2018 @ [facility], Patient came in with tubigrip bilateral , wound clin est, wound clinest, Wound CTR-follow up, Wound CTR-follow up, Wound CTR-follow up, Peer to Peer w/ Dr. Espino, Wound CTR-follow up, Wound CTR-follow up, Record Retrieval Specialist Documentation, LAB, Wound CTR-follow up, Wound CTR-follow up, Wound CTR-follow up, Wound CTR-follow up, LAB, LAB, Wound CTR- follow up, Wound CTR-follow up, Wound CTR-follow up, Record Retrieval Specialist Documentation, [facility], Wound CTR-follow up, Wound CTR-follow up, Pull PICC Line, Wound CTR-follow up, Wound CTR-follow up, LAB, Still taking doxycycline 100mg? , Wound CTR-follow up, Wound CTR-follow up, Wound CTR-follow up, Record Retrieval Specialist Documentation, Wound CTR-follow up, Wound CTR-follow up, Call back, Record Retrieval Specialist Documentation, Record Retrieval Specialist Documentation, Record Retrieval Specialist Documentation, Wound CTR-follow up, WCC, Wound CTR-follow up, Wound CTR-follow up, labs, D/C planning, bailey smetatarsal amputation of right foot, LAB, LAB, Wound CTR-NEW Insurance Providers [facility] Health Member Patient Patient Patient Patient Patient Subscriber Subscriber Subscriber Group Insurance Plan Plan Plan Plan ID Relationship Address Phone Name Date of ID Name Date of No Type Insurance Insurance Insurance Coverage to Subscriber Address Phone Name Dates MEDICARE 3000 [place] MEDICARE self GREG[place] [id number] [place] [id number] SELF PAY [address] SELF PAY self GREGORY [id number] AFTER BLUE [place] AFTER BLUE [facility] [id number] [address] S-BLUE [phone] S-BLUE GREG[place] [id number] [facility] [address] [facility] [address] [place] [address] [place] OTHER 29 [place] [phone] OTHER GREGORY [id number] GRANT 1^MAIN [place] [facility] PAYOR [id number]
--- OUTSIDE RECORDS SUMMARY | 2022-02-18 08:24 | XMS_ITS | Encounter Summary ---
:1945 Author Organization [facility] Address [address] [place] [address] Care Team Providers Name Role Phone Unknown, Provider Primary Care Provider Encounter Details Date Type Department Care Team Description 07/11/2014 Results Only [facility] Shruthi Horowitz MD Laboratory Services - [address] [place] [address] [place] [address] 0 [facility] [place] [address] [phone] Social History Tobacco Use Types Packs/Day Years Used Date Never Assessed Sex Assigned at Date Recorded Not on file documented as of this encounter Plan of Treatment Not on filedocumented as of this encounter Procedures Procedure Name Priority Date/Time Associated Diagnosis Comme [facility] SURGICAL PATHOLOGY Routine 07/11/2014 8:55 [...] ? DON HOANG ? Accession #: ? [id number] ? : ? 1945 (Age: 69) ??M [...] 6.5 x 3.0 cm in aggreg ate). Large Animal Husbandry Technician sections are submitted in 1- 10 (approximately 40% of the specimen is submitted). Viry Nunez 07/12/2014 11:21 AM End of Report Specimen Performing Organization Address City/State/ZIP Code Phon e Number [facility] [address] [place] [address] SERVICES documented in this encounter Visit Diagnoses Not on filedocumented in this encounter Care Teams Rehabilitation Counsellor Relationship Specialty Start Date End Date Unknown, Provider, PCP - General 03/07/14 07/12/14 documented as of this encounter
--- OUTSIDE RECORDS SUMMARY | 2022-02-18 08:24 | XMS_ITS | Encounter Summary ---
:1945 Author Organization [facility] Address [address] [place] [address] Care Team Providers Name Role Phone Unknown, Provider Primary Care Provider Encounter Details Date Type Department Care Team Description 03/05/2014 Results Only [facility] Eris Taylor MD Laboratory Services - [address] [place] [address] [place] [address] [phone] Social History Tobacco Use Types Packs/Day Years Used Date Never Assessed Sex Assigned at Date Recorded Not on file documented as of this encounter Plan of Treatment Not on filedocumented as of this encounter Procedures Procedure Name Priority Date/Time Associated Diagnosis Comme [facility] SURGICAL PATHOLOGY Routine 03/05/2014 10:34 Resul [...] ? DON HOANG ? Accession #: ? [id number] ? : ? 1945 (Age: 68) ??M [...] Organization Address City/State/ZIP Code Phon e Number [facility] [address] [place] [address] SERVICES [facility] [address] [place] [address] documented in this encounter Visit Diagnoses Not on filedocumented in this encounter Care Teams Plc Technician Relationship Specialty Start Date End Date Unknown, Provider, PCP - General 03/07/14 07/12/14 documented as of this encounter
--- OUTSIDE RECORDS SUMMARY | 2022-02-18 08:24 | XMS_ITS | Encounter Summary ---
:1945 Author Organization [facility] Address [address] [place] [address] Care Team Providers Name Role Phone Unknown, Provider Primary Care Provider Encounter Details Date Type Department Care Team Description 07/11/2014 Hospital Encounter [facility]- Heather Unknown, Provider, [facility] [address] [place] [address] [place] [address] (Work) [phone] Social History Tobacco Use Types Packs/Day Years Used Date Never Assessed Sex Assigned at Date Recorded Not on file documented as of this encounter Discharge Disposition Disposition Code Departure Means Destination Home or Self [place] documented in this encounter Plan of Treatment Not on filedocumented as of this encounter Visit Diagnoses Not on filedocumented in this encounter Care Teams Robotic Maintenance Technician Relationship Specialty Start Date End Date Unknown, Provider, PCP - General 03/07/14 07/12/14 documented as of this encounter
--- OUTSIDE RECORDS SUMMARY | 2022-02-18 08:24 | XMS_ITS | Encounter Summary ---
:1945 Author Organization [facility] Address [address] [place] [address] Care Team Providers Name Role Phone Lovely Vicente MD Primary Care Provider Encounter Details Date Type Department Care Team Description 01/01/2020 Lab Requisition [facility] Outr Resulting Lab, Pathology & Laboratory Provider [facility] [address] [place] [address] Social History Tobacco Use Types Packs/Day Years [...] nature PSA 2.1 0.0 - 6.5 ng/mL [facility] Specimen Blood - Venous blood (substance) Narrative [facility] - 01/02/2020 10:40 EDT NOTE: Serum PSA concentration should not be in terpreted as absolute evidence for the presence or absence of malignant disease. Assayed on Siemens ADVIA Centaur XPT usi ng chemiluminescent technology.??Values obtained by using different assay methods cannot be used interchangeably. Performing Organization Address City/State/ZIP Code Phon e Number [facility] [address] [place] [address] SERVICES documented in this encounter Visit Diagnoses Not on filedocumented in this encounter Care Teams Water Softener Servicer Relationship Specialty Start Date End Date Lovely Vicente MD PCP - General 07/13/14 documented as of this encounter
--- OUTSIDE RECORDS SUMMARY | 2022-02-18 08:24 | XMS_ITS | Encounter Summary ---
:1945 Author Organization [facility] Address [address] [place] [address] Care Team Providers Name Role Phone Lovely Vicente MD Primary Care Provider Encounter Details Date Type Department Care Team Description 08/11/2019 Lab Requisition [facility] Unknown, Provider, Pathology & Laboratory [facility] [address] [facility] [place] [address] Social History Tobacco Use Types Packs/Day Years [...] (08/11/2019 14:35 EST) Giardia and Cryptosporidium Cryptosporidium [facility] Cryptosporidium Antigen Neg and Antigen Neg and CENTER Giardia Antigen Neg Giardia Antigen Neg LABORATORY SERVICES Specimen Feces - Specimen from rectum (specimen) Performing Organization Address City/State/ZIP Code Phon e Number [facility] [address] [place] [address] SERVICES documented in this encounter Visit Diagnoses Not on filedocumented in this encounter Care Teams Fruit Dryer Relationship Specialty Start Date End Date Lovely Vicente MD PCP - General 07/13/14 documented as of this encounter
--- OUTSIDE RECORDS SUMMARY | 2022-02-18 08:24 | XMS_ITS | Encounter Summary ---
:1945 Author Organization [facility] Address [address] [place] [address] Care Team Providers Name Role Phone Lovely Vicente MD Primary Care Provider Encounter Details Date Type Department Care Team Description 01/28/2022 Lab Requisition [facility] Outr Resulting Lab, Pathology & Laboratory Provider [facility] [address] [place] [address] Social History Tobacco Use Types Packs/Day Years Used Date Never Assessed Sex Assigned at Date Recorded Not on file documented as of this encounter Plan of Treatment Not on filedocumented as of this encounter Procedures Procedure Name Priority Date/Time Associated Diagnosis Comme nts COVID-19 TEST [facility] Today 01/27/2022 14:30 LAB PCR EDT COVID-19 TESTING Routine 01/27/2022 14:30 Results for this EDT procedure are i n the results section. documented in this encounter Results COVID-19 TEST [facility] LAB PCR (01/27/2022 14:30 EDT) Specimen Swab Performing Organization Address City/State/ZIP Code Phon e Number [facility] [address] [place] [address] SERVICES COVID-19 TESTING (01/27/2022 14:30 EDT) COVID-19 rt-PCR Negative Negative [facility] Result Comment: [facility] [...] was performed using the meliton SARS-CoV-2 assay ([employer] on the Meliton 6800 System Performing Lab Meliton 6800 [facility] Lab [facility] SERVICES Specimen Swab Performing Organization Address City/State/ZIP Code Phon e Number [facility] [address] [place] [id number] SERVICES documented in this encounter Visit Diagnoses Not on filedocumented in this encounter Care Teams Pharmacy Graduate Intern Relationship Specialty Start Date End Date Lovely Vicente MD PCP - General 07/13/14 documented as of this encounter
--- OUTSIDE RECORDS SUMMARY | 2022-02-18 08:24 | XMS_ITS | Encounter Summary ---
:1945 Author Organization [facility] Address [address] [place] [address] Care Team Providers Name Role Phone Lovely Vicente MD Primary Care Provider Encounter Details Date Type Department Care Team Description 04/04/2021 Lab Requisition [facility] Outr Resulting Lab, Pathology & Laboratory Provider [facility] [address] [place] [address] Social History Tobacco Use Types Packs/Day Years [...] Pathologist Sig nature Salmonella PCR Negative Negative [facility] SERVICES Shigella/Enteroinvasive Negative Negative [facility]. coli LABORATORY SERVICES HN LAB CAMPYLOBACTER PCR Negative Negative [facility] ER LABOR[facility]ORY SERVICES Shiga Toxin PCR Negative Negative [facility] SERVICES Specimen Feces - Specimen from rectum (specimen) Performing Organization Address City/State/ZIP Code Phon e Number [facility] [address] [place] [address] SERVICES documented in this encounter Visit Diagnoses Not on filedocumented in this encounter Care Teams Thread Roller Relationship Specialty Start Date End Date Lovely Vicente MD PCP - General 07/13/14 documented as of this encounter
--- OUTSIDE RECORDS SUMMARY | 2022-02-20 08:08 | XMS_ITS | Encounter Summary ---
:1945 Author Organization [facility] Address [facility] [place] [address] Care Team Providers Name Role Phone Lovely Vicente MD Primary Care Provider Reason for Visit Auth/Cert Specialty Diagnoses / Procedures Referred By Contact Refer red To Contact Diagnoses ASCVD (arteriosclerotic cardiovascular disease) [I25.10] Vitaliy Nobles MD [facility] Procedures PRO PERC TRLUML CORONARY STENT W/ANGIO ONE ART/BRANCH CARDIAC CATHETERIZATION STENT PLACEMENT-SINGLE MAJOR CORONARY ARTERY OR BRANCH [facility] [place] [address] Referral ID Status Reason Start Date Expiration Date Visits Requ ested Visits Authorized [id number] 1 1 Encounter Details Date Type Department Care Team Description 01/30/2022 Surgery Lab Rn Asa Coulter MD CARDIAC CATHETERIZATION [facility] [place] [address] [place] [address] [phone] (Wo rk) Social History Tobacco Use Types [...] and Clopidogrel. Please follow up with your founder in the next 4-6 weeks. We have [...] Murray RN - 01/30/2022 4:54 PM EDT [facility] Short Stay Unit Discharge Note All [...] recent PCI presenting for staged PCI to [facility]. The pt states he has been ok. [...] recent PCI presenting for staged PCI to [facility]. The indications, expected benefits, and potential risks [...] SSU team Don has history of prior [place] and CABG. I had referred him to cardiac rehab at [facility] last month per HF team. He was waiting until this intervention before starting the program. Reviewed managing angina /use of sl nitroglycerin. Given parameters for home exercise. 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 We discussed short walks several times per day. Will send [facility] his discharge summary from this admission. The patient should be contacted by the Program within 1- 2 weeks from discharge. Brief Op Note - Vitaliy Nobles MD - 01/30/2022 10:19 AM EDT Images from the original note were not included. [facility] [place] [address] [place] [address] CORONARY ANGIOGRAM AND PERCUTANEOUS CORONARY INTERVENTION REPORT Patient: Don Fatima : 1945 MR number: [id number] Date of Service: 01/30/2022 Aeronautical Inspector: Vitaliy Nobles MD Fellow: KEYON Elizabeth INDICATION: [...] a long 2.0 x 26 mm HARDEEP Turrell TUCKER stent and positioned it at the [...] using a 2.0 x 26 mm HARDEEP Turrell TUCKER stent. This completes the revascularization ofall [...] Nobles MD [facility] CARDIOLOG[facility] [place] [address] (Wo rk) Scheduled Orders Name Type Priority [...] Abs (ANC) 3.96 1.70 - [facility] 6.10 [facility] x10(3)/[facility] LABORATORY Lymphocytes % 16.3 % [facility] LABORATORY Lymphocytes Abs 0.9 0.9 - 3.2 [facility] x10(3)/[facility] LABORATORY Monocytes % 10.0 % [facility] LABORATORY Monocyte Abs 0.6 0.3 - 0.9 [facility] x10(3)/[facility] LABORATORY Eosinophils % 0.5 % [facility] LABORATORY Eosinophils Abs 0.0 0.0 - 0.4 [facility] x10(3)/[facility] LABORATORY Basophils % 0.5 % [facility] LABORATORY Basophils Abs 0.0 0.0 - 0.1 [facility] x10(3)/[facility] LABORATORY Immature Gran % 0.90 % [facility] [...] Abs 0.05 (H) 0.00 - 0.04 x10(3)/[facility] LABORATORY Specimen Anatomical Collection Method Collection Time Receive d Time (Source) Location / / Volume Laterality Blood 01/30/2022 2:12 PM 2 2:37 EDT PM EDT Resulting Agency Comment Spec In Lab Eddi Elizabeth Jr., MD HEMATOLOGY ORDERABLES Performing Organization Address City/State/[place] [address] (ABNORMAL) Hemogram (01/30/2022 2:12 PM EDT) Analysis Performed At Patho logist Time Signature WBC 5.5 4.0 - 9.5 [facility] x10(3)/[facility] LABORATORY RBC 4.30 (L) 4.58 - [facility] 5.54 [facility] x10(6)/[facility] LABORATORY Hemoglobin 12.7 (L) 13.7 - [facility] 16.5 g/dL [facility] Hematocrit 39.4 (L) 40.5 - [facility] 48.5 % [facility] MCV 91.6 82.9 - [facility] 93.1 [facility] LABORATORY MCH 29.5 27.5 - [facility] 32.1 pg [facility] MCHC 32.2 32.0 - [facility] 35.7 g/dL [facility] Platelets 172 145 - 357 [facility] x10(3)/[facility] LABORATORY RDWSD 54.5 (H) 36.0 - [facility] 45.0 [facility] LABORATORY RDWCV 16.4 (H) 11.4 - [facility] 13.8 % [facility] LABORATORY MPV 9.2 7.6 - 12.9 [facility] LABORATORY nRBC % Auto 0.0 % [facility] LABORATORY nRBC Abs Auto 0.000 0.000 - [facility] 0.000 [facility] x10(3)/[facility] LABORATORY Specimen Anatomical Collection Method Collection Time Receive d Time (Source) Location / / Volume Laterality Blood 01/30/2022 2:12 PM 2 2:37 EDT PM EDT Resulting Agency Comment Spec In Lab Eddi Elizabeth Jr., MD HEMATOLOGY ORDERABLES Performing Organization Address City/State/[place] [address] (ABNORMAL) Basic Metabolic Panel (non-fasting) (01/30/2022 2:12 PM EDT) P athologist Signature Glucose Lvl 163 65 - 199 [facility] mg/dL [facility] Comment: Diabetes: >=200 mg/dL plus [...] Nobles MD CHEMISTRY ORDERABLES Performing Organization Address City/[facility]/[place] [address] POCT Glucose (01/30/2022 1:41 PM EDT) athologist Signature POC Glucose 148 65 - 199 [facility] mg/dL [facility] Comment: Supplemental ranges: <140 mg/dL before meals <180 mg/dL all other times of the day Specimen Anatomical Collection Method Collection Time Receive d Time (Source) Location / / Volume Laterality Blood 01/30/2022 1:41 PM 2 1:41 EDT PM EDT Vitaliy Nobles MD POINT OF CARE TEST ORDERABLE S Performing Organization Address City/[facility]/[place] [address] POCT Glucose (01/30/2022 10:48 AM EDT) P athologist Signature POC Glucose 193 65 - 199 [facility] mg/dL [facility] Comment: Supplemental ranges: <140 mg/dL before meals <180 mg/dL all other times of the day Specimen Anatomical Collection Method Collection Time Receive d Time (Source) Location / / Volume Laterality Blood 01/30/2022 10:48 01/30/2022 AM EDT 10:48 AM EDT Vitaliy Nobles MD POINT OF CARE TEST ORDERABLE S Performing Organization Address City/[facility]/[place] [address] EKG 12 Lead (01/30/2022 10:33 AM EDT) Component Value Ref Range Test Analysis Performed Pathologis t Method Time At Signature Ventricular rate 64 BPM MUSE SYSTEM Atrial Rate 64 BPM MUSE SYSTEM P-R Interval 162 ms MUSE SYSTEM QRS Duration 94 ms MUSE SYSTEM Q-T Interval 422 ms MUSE SYSTEM QTC Calculated 435 ms MUSE SYSTEM (Bezet) Calculated P [place] 41 degrees MUSE SYSTEM Calculated R [place] -27 degrees MUSE SYSTEM Calculated T [place] 104 degrees MUSE SYSTEM INTERPRETATION Normal sinus rhythm MUSE SYSTEM Anterolateral infarct (cited on or before 09-DEC-2021) Abnormal ECG When compared with ECG of 10-DEC-2021 11:17, No significant change was found Confirmed by Gary Perez ([id number]) on 01/30/2022 5:57:5 2 PM Specimen Anatomical [...] SYSTEM - 01/30/2022 2:09 PM ED T ?[facility] ? Cardiac Cathete rization/Intervention Report ? Patient Name: KushalDon ? Procedure Date: 01/30/2022 ? A #: [id number] ? Primary Physician: iVtaliy Nobles ? Case #: [id number] ? File Name: [id number] ? Catheterization Order Number: [id number] ? [facility] ? Final Report [place], [place] ? Patient Name: ? Don E. Stewa rt ? ID#: ?[id number] ? : ?1945 ? Procedure Date: ? [...] procedure was Urgent. The indication for ?the photo lab specialist visit is stable kn own CAD. Chest [...] guiding catheter an d a 3.[address] [facility] [address] ??20 Mhz ?using Manual pullback. ??Imagin [...] A premounted 2.00 x 26 mm Hardeep Turrell (TUCKER) ? was deployed wi th a [...] Wedelivered along 2.0 x 26 mm HARDEEP Turrell ? TUCKER stent and p ositioned it [...] dose administered prior to arrival in the photo lab specialist. ?Recommended anti-platelet/anti- thrombotic regimen: ?Continue aspirin 81 [...] ?modification of this regimen. C [facility] for ?questions. ?The 1 year [...] using a 2.0 x 26 mm HARDEEP Turrell TUCKER stent. ?This completes the revasculariz ation [...] 212 (H) 65 - 199 [facility] mg/dL [facility] Comment: Supplemental ranges: <140 mg/dL before meals <180 mg/dL all other times of the day Specimen Anatomical Collection Method Collection Time Receive d Time (Source) Location / / Volume Laterality Blood 01/30/2022 9:04 AM 2 9:04 EDT AM EDT Vitaliy Nobles MD POINT OF CARE TEST ORDERABLE S Performing Organization Address [facility]/[place] [address] (ABNORMAL) POCT Glucose (01/30/2022 8:10 AM EDT) P athologist Signature POC Glucose 224 (H) 65 - 199 [facility] mg/dL [facility] Comment: Supplemental ranges: <140 mg/dL before meals <180 mg/dL all other times of the day Specimen Anatomical Collection Method Collection Time Receive d Time (Source) Location / / Volume Laterality Blood 01/30/2022 8:10 AM 2 8:10 EDT AM EDT Vitaliy Nobles MD POINT OF CARE TEST ORDERABLE S Performing Organization Address City/[facility]/[place] [address] documented in this encounter Visit Diagnoses Diagnosis ASCVD (arteriosclerotic cardiovascular d isease) Unspecified cardiovascular disease 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 ASHD (arteriosclerotic heart disease) Coronary atherosclerosis of unspecified type of vessel, [place] or graft ASCVD (arteriosclerotic cardiovascular d isease) Unspecified cardiovascular disease documented in this encounter Admitting Diagnoses Diagnosis CAD (coronary artery disease) Coronary atherosclerosis of unspecified type of vessel, [place] or graft documented in this encounter Administered [...] Given 02/2022 10:11 AM EDT 100 mcg (BAG BUNDLER) ONCE PRN, Starting on Wed01/30/22 at 0927, [...] Procedure), Routine niCARdipine (Cardene) (100 mcg/mL) dilution (BAG BUNDLER) (CANCELED ) 0927 (Given - Provider: Vitaliy [...] (Intra-Procedure) documented in this encounter Care Teams Hair Rooting Machine Operator Relationship Specialty Start Date End Date Lovely Vicente MD PCP - General 04/16/[address] [place] [address] documented as of this encounter
--- OUTSIDE RECORDS SUMMARY | 2022-02-20 08:08 | XMS_ITS | Clinical Summary ---
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 Dayami Buckner 12/24/2021 Orders Only Cardiology [...] [facility] CARDIOLOGY [place], [place] [address] (Wo rk) Health Maintenance Due Date Last Done Comments Covid-19 Vaccine (#1) 1950 Pneumoccocal Vaccine: 65+ (1 - PCV) 1952 Hepatitis C Screening 1964 Tdap adult 1965 Tetanus vaccine 1965 Zoster vaccine (1 of 2) 1996 AAA Screen 2011 Colonoscopy 01/16/2019 01/16/2014, 01/16/2014 Influenza (Flu) vaccine (1 of 1 - 03/26/2022 03/29/2013, Influenza standard series) Medical Devices Implanted Type Area Orthopedic Physician Device Shelf Model / Identifier Expiration Serial / Date Lot Cable,Cut,Edg,Blnt,Ss,3tpr ([id number]) - [id number] IMPLANTS Midline: [employer] 04/01/2022 [id number] / Implanted: Qty: 4 on 07/07/2017 by Yuan Retana MD at [facility] [employer] - / [id number] Procedures Procedure Name Priority Date/Time Associated Diagnosis [...] Time Signature WBC 7.2 4.0 - 9.5 [facility] LABORATORY RBC 4.41 (L) 4.58 - [place] SU 5.54 [facility] x10(6)/[facility] LABORATORY Hemoglobin 13.2 (L) 13.7 - [place] SU 16.5 g/dL [facility] LABORATORY Hematocrit 40.9 40.5 - [place] SU 48.5 % [facility] LABORATORY MCV 92.7 82.9 - [place] SU 93.1 [facility] LABORATORY MCH 29.9 27.5 - [place] SU 32.1 pg [facility] LABORATORY MCHC 32.3 32.0 - [place] 35.7 g/dL [facility] LABORATORY Platelets 191 145 - 357 [facility] x10(3)/[facility] LABORATORY RDWSD 53.6 (H) 36.0 - BubbleGabUS 45.0 [facility] LABORATORY RDWCV 15.6 (H) 11.4 - [place] SU 13.8 % [facility] LABORATORY MPV 8.7 7.6 - 12.9 [facility] nRBC % Auto 0.0 % [facility] LABORATORY nRBC Abs Auto 0.000 0.000 - [place] SU 0.000 [facility] x10(3)/[facility] LABORATORY Specimen Anatomical Collection Method Collection Time Receive d Time (Source) Location / / Volume Laterality Blood 02/19/2022 8:06 AM 8:09 EDT AM EDT Resulting Agency Comment Spec In Lab Liz Poole STEPHANIE HEMATOLOGY ORDERABLES Performing Organization Address City/State/[place] [address] (ABNORMAL) Differential, Automated (02/19/2022 8:06 AM EDT)Only the most recent of9 resultswithin the time period is included. [facility] Method Time Signature Neutrophils % 76.0 % [facility] LABORATORY Neutr Abs (ANC) 5.49 1.70 - [facility] 6.10 [facility] x10(3)/[facility] LABORATORY Lymphocytes % 10.8 % [facility] LABORATORY Lymphocytes Abs 0.8 (L) 0.9 - 3.2 [facility] x10(3)/[facility] LABORATORY Monocytes % 10.2 % [facility] LABORATORY Monocyte Abs 0.7 0.3 - 0.9 [facility] x10(3)/[facility] LABORATORY Eosinophils % 1.2 % [facility] LABORATORY Eosinophils Abs 0.1 0.0 - 0.4 [facility] x10(3)/[facility] LABORATORY Basophils % 0.8 % [facility] LABORATORY Basophils Abs 0.1 0.0 - 0.1 [facility] x10(3)/[facility] LABORATORY Immature Gran % 1.00 % [facility] LABORATORY Comment: Immature [...] Address City/State/[place] [address] (ABNORMAL) pro-Brain Natriuretic Peptide (02/19/2022 8:06 AM EDT)Only the most recent of2 resultswithin the time period is included. athologist Signature ProBNP 984 (H) <=449 pg/mL [facility] LABORATORY Specimen Anatomical Collection Method Collection Time Receive d Time (Source) Location / / Volume Laterality Blood 02/19/2022 8:06 AM 8:09 EDT AM EDT Resulting Agency Comment Spec In Lab Zulma Plunkett MD CHEMISTRY ORDERABLES Performing Organization Address City/State/[place] [address] (ABNORMAL) Basic Metabolic Panel (non-fasting) (02/19/2022 8:06 AM EDT)Only the most recent of7 resultswithin the time period is included. athologist Signature Glucose Lvl 139 65 - 199 [facility] mg/dL [facility] LABORATORY Comment: Diabetes: >=200 mg/dL plus symp toms BUN 31 (H) 10 - 20 mg/dL [facility] LABORATORY Creatinine 1.53 (H) 0.80 - 1.50 mg/dL [facility] LABORATORY Sodium 142 135 - 145 mmol/L [facility] LABORATORY Potassium 5.4 (H) 3.5 - 5.0 mmol/L [facility] [...] 107 mmol/L [facility] LABORATORY CO2 31 22 - 31 mmol/L [facility] LABORATORY Anion Gap 11 5 - 15 mmol/L [facility] LABORATORY Calcium 9.7 8.5 - 10.5 mg/dL [facility] LABORATORY Estimated GFR 47 (L) >=60 mL/min/1.73 m?? [facility] LABORATORY Comment: This patient's estimated [...] Organization Address City/State/ZIP Code Phon e Number [address] POCT Glucose (01/30/2022 1:41 PM EDT)Only the most recent of36 resultswithin the time period is included. P athologist Signature POC Glucose 148 65 - 199 [facility] mg/dL [facility] LABORATORY Comment: Supplemental ranges: <140 mg/dL before meals <180 mg/dL all other times of the day Specimen Anatomical Collection Method Collection Time Receive d Time (Source) Location / / Volume Laterality Blood 01/30/2022 1:41 PM 2 1:41 EDT PM EDT Vitaliy Nobles MD POINT OF CARE TEST ORDERABLE S Performing Organization Address City/State/Z[place] [address] EKG 12 Lead (01/30/2022 [...] 435 ms MUSE SYSTEM (Bezet) Calculated P Mutual 41 degrees MUSE SYSTEM Calculated R Mutual -27 degrees MUSE SYSTEM Calculated T Mutual 104 degrees MUSE SYSTEM INTERPRETATION Normal sinus rhythm MUSE SYSTEM Anterolateral infarct (cited on or before 09-DEC-2021) Abnormal ECG When compared with ECG of 10-DEC-2021 11:17, No significant change was found Confirmed by Gary Perez ([id number]) on 01/30/2022 5:57:5 2 PM Specimen Anatomical [...] SYSTEM - 01/30/2022 2:09 PM ED T ?[facility] ? Cardiac Cathete rization/Intervention Report ? Patient Name: Don Fatima ? Procedure Date: 01/30/2022 ? A #: [id number] ? Primary Physician: Nobles, Vitaliy P ? Case #: [id number] ? File Name: [id number] ? Catheterization Order Number: [id number] ? [facility] ? Final Report [place], [place] ? Patient Name: ? Don E. Stewa rt ? ID#: ?[id number] ? : ?1945 ? Procedure Date: ? [...] for ?the labor relations specialist visit is stable kn own CAD. [...] guiding catheter an d a 3.5 Fr [facility] [address] ??20 Mhz ?using Manual pullback. ??Imagin [...] ?? A premounted 2.00 x 26 mm [place] (TUCKER) ? was deployed wi a maximum [...] Wedelivered along 2.0 x 26 mm [place] ? TUCKER stent and p ositioned it [...] administered prior to arrival in the labor relations specialist. ?Recommended anti-platelet/anti- thrombotic regimen: ?Continue aspirin [...] require ?modification of this regimen. C onsult [facility] Interventional Cardiology for ?questions. ?The 1 year bleeding risk as nusrat culated by the PRECISE DAPT score is High ?risk. ?High Bleeding Risk - Anticoagul ation and DAPT: ?- ??Assess ischemic and bleedin g risks using validated risk predictors ?(e.g. CHADS2-VASC, HAS-BLED, CO ECISE DAPT, DAPT Score) ?- ??Keep anticoagulant [...] using a 2.0 x 26 mm [place] TUCKER stent. ?This completes the revasculariz ation [...] Signature Glucose 152 (H) 65 - 99 [facility] Fasting mg/dL [facility] LABORATORY Comment: ?Fasting* Glucose Interpretive [...] of Diabetes Mellitus, Position Statement from the [place] Diabetes Association. ??Diabete s Care, Volume 33, Supplement 1, Jul 2009 BUN 52 (H) 10 - 20 mg/dL [facility] LABORATORY Creatinine 1.72 (H) 0.80 - 1.50 mg/dL [facility] [...] estions. Chloride 105 98 - 107 mmol/L [facility] LABORATORY CO2 21 (L) 22 - 31 mmol/L [facility] LABORATORY Anion Gap 17 (H) 5 - 15 mmol/L [facility] LABORATORY Calcium 8.9 8.5 - 10.5 mg/dL [facility] LABORATORY Estimated GFR 38 (L) >=60 mL/min/1.73 m?? [facility] LABORATORY Comment: This patient? s [...] Organization Address City/State/[place] [address] (ABNORMAL) Prothrombin Time (12/12/2021 4:51 AM EDT)Only the most recent of4 resultswithin the time period is included. P athologist Signature PT 14.9 (H) 9.4 - 12.5 [facility] LABORATORY INR 1.3 [facility] LABORATORY Comment: An INR [...] Organization Address City/State/ZIP Code Phon e Number [address] Magnesium (12/12/2021 4:51 AM EDT)Only the most recent of5 resultswithin the time period is included. P athologist Signature Magnesium 1.02 0.69 - 1.07 [facility] mmol/L [facility] LABORATORY Specimen Anatomical Collection Method Collection Time Receive d Time (Source) Location / / Volume Laterality Blood 12/12/2021 4:51 AM 2 5:06 EDT AM EDT Resulting Agency Comment Spec In Lab Iker Cuevas MD CHEMISTRY ORDERABLES Performing Organization Address City/[facility]/ZIP [place] [address] COVID-19 PCR (12/11/2021 10:13 AM EDT) Patholo gist Method Time Signature SARS-CoV-[address] [facility] LABORATORY Comment: This result should be [...] diagnosis of COVID-19 is performed using the [employer] RONNA S-CoV-2 Assay as authorized by the FDA Emergency Use Authorization (EUA). This EUA assay is intended for In-vitro Diagnostic (IVD) use with respiratory sp ecimens such as nasopharyngeal swabs collected from individuals during the ac terrence phase of infection. This assay is performed based on the instructions for use provided by [employer] and additional guidance provided by CDC and FDA. Testing is performed in the Clinical Genomics and Advanced Technolog y Laboratory within the Department of Pathology and Laboratory Medicine at [facility], certified under the Clinical Laboratory Improvement [...] fact sheets at the following FDA website: https://www.fda.gov/medical-devices/xlojaypwene-dhnzlbu-4860-ivziv-14-nfpqaoklf- kuo-dhukxyoxudrtbt-gkpokzn-devices/mwlha-vvknoxkvxjz-ydbx SARS-Cov-2 RNA Source TECHNICAL PHOTOGRAPHER Swab [facility] LABORATORY Specimen (Source) Anatomical Collection Method Collection Time Re ceived Time Location / / Volume Laterality Nasopharyngeal Swab 12/11/2021 10:13 0503/2022 AM EDT 11:16 AM EDT Comment: Symptoms->Surveillance Resulting Agency Comment Spec In Lab Iker Cuevas MD MICROBIOLOGY - GENERAL ORDER ROBSON Performing Organization Address City/[facility]/ZIP [facility] [place] [address] Potassium (12/10/2021 7:46 PM EDT) P athologist Signature Potassium 4.2 3.5 - 5.0 [facility] mmol/L [facility] LABORATORY Comment: Please note: ??Patients [...] MD CHEMISTRY ORDERABLES Performing Organization Address [facility]/ZIP [facility] [place] [address] (ABNORMAL) Point of Care Blood Gas Historical (12/10/2021 9:04 AM EDT) Patholo gist Method Time Signature POC pH 7.40 7.35 - [facility] 7.45 [facility] LABORATORY POC PCO2 40 35 - 45 [facility] mmHg [facility] LABORATORY POC PO2 63 (L) 85 - 104 [facility] mmHg [facility] LABORATORY POC Base Excess 0.0 -3.0 - 3.0 [facility] mmol/L [facility] LABORATORY POC HCO3 24.8 20.0 - [facility] 26.0 [facility] mmol/[facility] LABORATORY POC Sodium 143 135 - 145 [facility] mmol/L [facility] LABORATORY POC Potassium 3.7 3.5 - 5.0 [facility] mmol/L [facility] LABORATORY POC Ionized Ca 1.07 (L) 1.15 - [facility] 1.33 [facility] mmol/[facility] LABORATORY POC Hematocrit 30.0 (L) 40.0 - [facility] 51.0 % [facility] LABORATORY POC Calc Hgb 10.2 (L) 13.7 - [facility] 17.5 g/dL [facility] LABORATORY Comment: The calculation of hemoglobin f rom hematocrit assumes a normal MCHC. POC Bgas Loc CC LAB [facility] LABORATORY Specimen Anatomical Collection Method Collection Time Receive d Time (Source) Location / / Volume Laterality Blood 12/10/2021 9:04 AM 2 EDT 12:00 PM EDT Ifeanyi Truong MD CHEMISTRY ORDERABLES Performing Organization Address City/State/[place] [address] Heparin (unfractionated) Level (12/10/2021 4:25 AM EDT)Only the most recent of5 resultswithin the time period is included. P athologist Signature Heparin UFH 0.69 IU/mL [facility] LABORATORY Comment: Heparin (anti-Xa) levels should be [...] Cuevas MD HEMATOLOGY ORDERABLES Performing Organization Address City/[facility]/ZIP [place] [address] (ABNORMAL) Troponin (12/09/2021 6:18 AM EDT)Only the most recent of3 results within the time period is included. athologist Signature Troponin-T 1.13 (H) 0.00 - [place] DAVIS 0.00 ng/mL [facility] LABORATORY Comment: The 99th percentile for Troponin T is le ss than 0.01 ng/mL, any detectable cTnT concentration using this assay should be considered elevated. According to the third universal definit ion of myocardial infarction the following criteria with a clinical prese ntation consistent with acute myocardial ischemia meets the diagnosis for a myocardial infarction (SD). Detection of a rise and/or fall of [...] additional sample may be indicated. Reference: Third [place] Definition of Myocardial Infarction. Journal of the [place] College of Cardiology 2012;60:1581-98 Specimen Anatomical Collection Method Collection Time Receive d Time (Source) Location / / Volume Laterality Blood 12/09/2021 6:18 AM 2 6:33 EDT AM EDT Resulting Agency Comment Spec In Lab Iker Cuevas MD CHEMISTRY ORDERABLES Performing Organization Address City/[facility]/ZIP [place] [address] TSH (12/09/2021 6:18 AM EDT) athologist Signature TSH 1.60 0.27 - 4.20 [place] [facility] mcIU/mL [facility] LABORATORY Comment: Reference Interval (mcIU/mL): Females: ??First Trimester: 0.23-3.88 ??Second Trimester: 0.22-3.90 ??Third Trimester: 0.44-4.66 Specimen Anatomical Collection Method Collection Time Receive d Time (Source) Location / / Volume Laterality Blood 12/09/2021 6:18 AM 2 6:33 EDT AM EDT Resulting Agency Comment Spec In Lab Iker Cuevas MD CHEMISTRY ORDERABLES Performing Organization Address City/State/[place] [address] (ABNORMAL) Hemoglobin A1c (12/09/2021 6:18 AM EDT) Analysis Performed At Patho logist Time Signature Hemoglobin A1C 7.4 (H) 4.3 - 5.6 [facility] [...] [id number] Est Avg Gluc See note mg/dL [facility] [...] with hemoglobinopathies. Additional resources are available on [facility] website. Macario HAMMOND, Ruthann J, Deysi R, et al. ??Tr anslating the A1C assay into estimated average glucose values. ??Diabetes Care 2008:31(8):9799-5837. Specimen Anatomical Collection Method Collection Time Receive d Time (Source) Location / / Volume Laterality Blood Venous Draw / 12/09/2021 6:18 AM 12/10/19 22 Unknown EDT 12:24 PM EDT Resulting Agency Comment Spec In Lab Migdalia BROWN CHEMISTRY ORDERABLES Performing Organization Address [facility] [place] [address] Hepatic Function Panel (12/09/2021 6:18 AM EDT) P athologist Signature Total Protein 7.3 6.1 - 8.0 [facility] g/dL [facility]ORATORY Albumin 4.2 3.2 - 5.2 [facility] g/dL [facility] AST 25 0 - 39 [place] unit/L [facility] ALT 15 0 - 55 [facility] unit/L [facility] LABORATORY Alk Phos 75 40 - 130 [place] unit/L [facility] Total 1.1 0.2 - 1.3 [facility] Bilirubin mg/dL [facility] LABORATORY Bili, Direct 0.2 0.0 - 0.3 [facility] mg/dL [facility] LABORATORY Specimen Anatomical Collection Method Collection Time Receive d Time (Source) Location / / Volume Laterality Blood 12/09/2021 6:18 AM 2 6:33 EDT AM EDT Resulting Agency Comment Spec In Lab Iker Cuevas MD CHEMISTRY ORDERABLES Performing Organization Address City/[facility] [place] [address] Lipid Panel (Reflex Direct LDL) (12/09/2021 6:18 AM EDT) athologist Signature Chol, Total 105 mg/dL [facility] LABORATORY Comment: Lower Risk: <200 mg/dL Average Risk: 200-239 mg/dL Higher Risk: >uq=910 mg/dL Triglycerides 133 mg/dL [facility] LABORATORY Comment: Average Risk/Lower Risk: <150 mg/dL Borderline High Risk: 150-199 mg/dL High Risk: 200-499 mg/dL Very High Risk: >is=525 mg/dL HDL 42 mg/dL [facility] LABORATORY Comment: Males: ?? Higher Risk: <40 mg/dL Females: ?? Higher Risk: <50 mg/dL LDL Cholesterol 36 mg/dL [facility] LAB[facility] Comment: Lowest Risk: <100 mg/dL Lower Risk: 100-129 mg/dL Borderline High Risk: 130-159 mg/dL High Risk: 160-189 mg/dL Very High Risk: >ua=641 mg/dL Chol/HDL Ratio 2.5 ratio [facility] LABORATORY Lipid Interpretation See Note [facility] LABORATORY Comment: Lipid management should be guided by a p atient? s ASCVD risk, goals and preferences. ACC/AHA Guidelines recommend high intens ity statin if clinical ASCVD or LDL greater than or equal to 190 mg/dL. http://ProtectWise.Catbird/LPA-SUS-Jexfjuyls Adults aged 40-75 with LDL 70-189 mg/dL should have their 10 year ASCVD risk estimated with the ACC/AHA ASCVD risk es timator http://tools.acc.org/UGGME-Qmly-Fmjjscrb r/ Statin should be discussed if risk [...] Organization Address City/State/ZIP Code Phon e Number [place] [id number]OSP[address] LAB[address]ORY Drive XR Chest One View [...] who have questions please contact the health managed care coordinator that requested your imaging first. ? Narrative [...] ho have questions please contact the health managed care coordinator that requested your imaging first. Amber Sanches MD IMG DX ORDERABLES (ABNORMAL) BLOOD GAS 2 ARTERIAL (12/09/2021 5:14 AM EDT) Analysis Performed At Patho logis Time Signature pH Art 7.43 7.35 - [facility] 7.45 [facility] LABORATORY pCO2 Art 36 35 - 45 [facility] mmHg [facility] LABORATORY pO2 Art 67 (L) 85 - 104 [facility] mmHg [facility] LABORATORY HCO3 Art 23.4 20.0 - [facility] 26.0 [facility] mmol/L HOSPITAL LABORATORY BE Art -0.9 -3.0 - 3.0 [facility] mmol/L [facility] LABORATORY Hgb Blood Gas 13.2 (L) 13.7 - [facility] 16.5 g/dL [facility] LABORATORY O2HB Art 91.3 (L) 94.0 - [facility] 97.0 % [facility] LAB[facility]ATORY COHB Art 0.4 % [facility] LABORATORY Comment: Nonsmokers: 0.5-1.5% COHB Smokers: Variable, but usually less than 10% Toxic: 20-30% COHB Lethal: Greater than 60% COHB METHB Art 0.4 <=1.5 % [facility] LABORATORY Na Whole Blood 138 135 - 145 mmol/L [facility] K Whole Blood 4.1 3.5 - 5.0 mmol/L [facility] LABOR[facility]ORY Comment: Please note: Patients with WBC >100,000 may have falsely elevated Potassium levels. Contact the Clinical Chemistry L aboratory if there are any questions. ICa Whole Blood 1.09 (L) 1.15 - 1.33 mmol/L [facility] LABORATORY Comment: Note: ??Total bilirubin higher than 20 m g/dL may lead to falsely low ionized calcium. CL Whole Blood 104 98 - 107 mmol/L [facility] LABORATORY Gluc Whole Bld 223 (H) 65 - 199 mg/dL [facility] Comment: Diabetes: >=200 mg/dL plus symp toms. Lactate WB 2.7 (H) 0.5 - 2.2 mmol/L [facility] LABORATORY FIO2 Art 35 % [facility] Flow Art 8.0 LPM [facility] LABORAT[facility] PF Ratio Art 191 [facility] LABORATORY Specimen Anatomical Collection Method Collection Time Receive d Time (Source) Location / / Volume Laterality Blood 12/09/2021 5:14 AM 5:14 EDT AM EDT Iker Cuevas MD CHEMISTRY ORDERABLES Performing Organization Address City/State/[place] [address] COVID-19 PCR (12/08/2021 5:00 PM EDT) [facility] Method Time Signature SARS-CoV-2 Not Detected Not Detected [facility] RNA PCR [facility] LABORATORY [...] using the Simplexa COVID-19 Direct Assay by CumuLogicjoi marcum as authorized by the FDA issued [...] Department of Pathology and Laboratory Medicine at [facility], certified under the Clinical Laboratory Improvement Amendmen [...] fact sheets at the following FDA website: https://www.fda.gov/medical-devices/olvimftqujf-dcqzeyh-3090-frsbd-14-hlvhzzxlc- hbw-ajqmanymktepum-hfdmvje-devices/xkjpe-xrikcsmrnvf-vwzq SARS-CoV-2 Source TECHNICAL PHOTOGRAPHER Swab [facility] LABORATORY Specimen (Source) Anatomical Collection Method Collection Time Re ceived Time Location / / Volume Laterality Nasopharyngeal Swab 12/08/2021 5:00 12/08 PM EDT 6:03 PM EDT Comment: Symptoms->Surveillance Resulting Agency Comment Spec In Lab Iker Cuevas MD MICROBIOLOGY - GENERAL ORDER ROBSON Performing Organization Address City/State/[place] [address] Scan Doc: Echo (12/08/2021) [...] Organization Address City/State/ZIP Code Phon e Number [place], [place] Scan Doc: ECG (12/07/2021) Narrative This result has an attachment that is no t available. Historical Provider MEDIA MGR SCAN EXT ORDR/RSLT from Last 3 Months Insurance Payer Benefit Plan / Subscriber ID Effective Phone Address T ype Group Dates MEDICARE MEDICARE PART [id number] 2011-Prese [phone] [facility] [phone] [employer] [place] [place] [facility] [id number] 2018-Prese [phone] [address] [place] [address] [place] [address] Advance Directives Documents on File Type Date Recorded Patient Data Programmer Explanati on Advance Directives and Living 03/28/2013 [...] capacity to make decision: Yes Care Teams Sock And Stocking Ironer Relationship Specialty Start Date End Date Lovely Vicente MD PCP - General 04/16/[address] [place] [address]
--- OUTSIDE RECORDS SUMMARY | 2022-02-20 08:08 | XMS_ITS | Encounter Summary ---
:1945 Author Organization [facility] [place] [address] Care Team Providers Name Role Phone Lovely Vicente MD Primary Care Provider Reason for Referral Diagnostic Test (Routine) - New Request Specialty Diagnoses / Procedures Referred By Contact Refer red To Contact Cardiology Diagnoses Chronic systolic heart failure Liz Carrera PA [facility] Non-Inv Card Lab Procedures Echocardiogram Transthoracic [facility] [place] [address] [place] [address] Fax: Referral ID Status Reason Start Expiration Visits Visits Date Date Requested Authorized [id number] New Request Specialty 02/19/2022 02/19/2023 1 1 Service Requested Encounter Details Date Type Department Care Team Description 02/19/2022 Office Visit Cardiology at [facility] Liz Carrera, Chronic systolic heart [facility] [place] [address] Cardiology Dept [phone] [place], [place] [address] Social History Tobacco Use Types [...] DC Summary - Admitted to [facility] on 12/08/21, transferred from [facility], respiratory distress with hypoxia [...] mg PO daily in place of Lasix. [place] is new for him and he will [...] his PCP. He started [facility] rehab in [facility]. Monitored vitals/trends at home: Weight [...] Antiplatelet (DAPT) Recommendations above ? TTE from [facility] 12/08/21 ?? 07/28/2019 Echocardiogram: [...] regurgitation present. 07/07/2019 - 07/21/2019 Zio Patch Supervisor Mending The patient had a minimum heart rate [...] 12.5 mg daily 6. Post-op atrial fibrillation [id number] (CHF, HTN, DM, vascular disease, thromboembolism) [...] Vitaliy Nobles MD [facility] [place] [address] (Wo rk) Scheduled Orders Name Type Priority Associated Order Schedule Diagnoses Echocardiogram Echocardiography Routine Chronic systolic Expec vlad: Transthoracic heart failure 05/22/2022 (Approximate), Expires: 11/21/2022 documented as of this encounter Results (ABNORMAL) Basic Metabolic Panel (non-fasting) (02/19/2022 8:06 AM EDT) athologist Signature Glucose Lvl 139 65 - [address] [facility] mg/dL [facility] Comment: Diabetes: >=200 mg/dL plus symp toms BUN 31 (H) 10 - 20 mg/dL [facility] Creatinine 1.53 (H) 0.80 - 1.50 mg/dL [facility] Sodium 142 135 - 145 mmol/L [facility] Potassium 5.4 (H) 3.5 - 5.0 mmol/L [facility] Comment: Please note: ??Patients with WBC >100,00 0 may have falsely elevated Potassium levels. ??For accurate Potassium quantif ication in these patients send serum separator tube (gold top) for subsequent determinations. ??Contact the Clinical Chemistry Laboratory if there are any qu estions. Chloride 100 98 - 107 mmol/L [facility] CO2 31 22 - 31 mmol/L [facility] Anion Gap 11 5 - 15 mmol/L [facility] Calcium 9.7 8.5 - 10.5 mg/dL [facility] Estimated GFR 47 (L) >=60 mL/min/1.73 m?? [facility] [...] Organization Address City/State/[place] [address] (ABNORMAL) pro-Brain Natriuretic Peptide (02/19/2022 8:06 AM EDT) P athologist Signature ProBNP 984 (H) <=449 pg/mL [facility] Specimen Anatomical Collection Method Collection Time Receive d Time (Source) Location / / Volume Laterality Blood 02/19/2022 8:06 AM 2 8:09 EDT AM EDT Resulting Agency Comment Spec In Lab Zulma Plunkett MD CHEMISTRY ORDERABLES Performing Organization Address City/State/[place] [address] documented in this encounter Visit Diagnoses Diagnosis Chronic systolic heart failure documented in this encounter Care Teams Supervisor Boat Outfitting Relationship Specialty Start Date End Date Lovely Vicente MD PCP - General 04/16/[address] [place] [address] documented as of this encounter
--- OUTSIDE RECORDS SUMMARY | 2022-02-20 08:08 | XMS_ITS | Encounter Summary ---
:1945 Author Organization [facility] [place] [address] Care Team Providers Name Role Phone Lovely Vicente MD Primary Care Provider Reason for Visit Auth/Cert Specialty Diagnoses / Procedures Referred By Contact Refer red To Contact Diagnoses ASCVD (arteriosclerotic cardiovascular disease) [I25.10] Vitaliy Nobles MD [facility] Procedures PRO PERC TRLUML CORONARY STENT W/ANGIO ONE ART/BRANCH CARDIAC CATHETERIZATION STENT PLACEMENT-SINGLE MAJOR CORONARY ARTERY OR BRANCH [facility] [place] [address] Referral ID Status Reason Start Date Expiration Date Visits Requ ested Visits Authorized [id number] 1 1 Encounter Details Date Type Department Care Team Description 01/30/2022 Laboratory Lab 3L Barbara ASCVD (arterios clerotic Appointment [facility] cardiovas cular disease) [place] [address] Social History Tobacco Use Types Packs/Day Years [...] MD [facility] ER CARDIOLOGY [place], [place] [address] (Wo rk) documented as of [...] (ABNORMAL) Differential, Automated (01/30/2022 7:19 AM EDT) [facility] gist Method Time Signature Neutrophils % 77.9 % [facility] Neutr Abs (ANC) 5.31 1.70 - [facility] [address] [facility] x10(3)/[facility] LABORATORY Lymphocytes % 12.0 % [facility] Lymphocytes Abs 0.8 (L) 0.9 - 3.2 [facility] x10(3)/[facility] LABORATORY Monocytes % 8.1 % [facility] Monocyte Abs 0.6 0.3 - 0.9 [facility] x10(3)/[facility] LABORATORY Eosinophils % 0.4 % [facility] Eosinophils Abs 0.0 0.0 - 0.4 [facility] x10(3)/[facility] LABORATORY Basophils % 0.6 % [facility] Basophils Abs 0.0 0.0 - 0.1 [facility] x10(3)/[facility] LABORATORY Immature Gran % 1.00 % [facility] Comment: Immature granulocytes(IG's)percentage an d absolute count will include metamyelocytes, myelocytes, and promyelo cytes. Blood smears from CBCs yielding IG's will be scanned manually for concor danhaley. If this scan disagrees with the automated IG or if promyelocytes are not ed, a manual differential will be performed. Melisa Gran Abs 0.07 (H) 0.00 - 0.04 x10(3)/[facility] LABORATORY Specimen Anatomical Collection Method Collection Time Receive d Time (Source) Location / / Volume Laterality Blood 01/30/2022 7:19 AM 7:21 EDT AM EDT Resulting Agency Comment Spec In Lab Zulma BROWN HEMATOLOGY ORDERABLES Performing Organization Address City/State/[place] [address] (ABNORMAL) Hemogram (01/30/2022 7:19 AM EDT) Analysis Performed At Patho logist Time Signature WBC 6.8 4.0 - 9.5 [facility] x10(3)/[facility] LABORATORY RBC 4.32 (L) 4.58 - [facility] [address] [facility] x10(6)/[facility] LABORATORY Hemoglobin 13.0 (L) 13.7 - [facility] g/dL [facility] Hematocrit 39.8 (L) 40.5 - [facility] 48.5 % [facility] MCV 92.1 82.9 - [facility] 93.1 [facility]ATORY MCH 30.1 27.5 - [facility] 32.1 pg [facility] MCHC 32.7 32.0 - [facility] 35.7 g/dL [facility] Platelets 172 145 - 357 [facility] x10(3)/[facility] LABORATORY RDWSD 54.5 (H) 36.0 - [facility] 45.0 [facility]ATORY RDWCV 16.2 (H) 11.4 - [facility] 13.8 % [facility] MPV 9.0 7.6 - 12.9 [facility] LABORATORY nRBC % Auto 0.0 % [facility] nRBC Abs Auto 0.000 0.000 - [facility] [address] [facility] x10(3)/[facility] LABORATORY Specimen Anatomical Collection Method Collection Time Receive d Time (Source) Location / / Volume Laterality Blood 01/30/2022 7:19 AM 7:21 EDT AM EDT Resulting Agency Comment Spec In Lab Zulma BROWN HEMATOLOGY ORDERABLES Performing Organization Address City/State/[place] [address] (ABNORMAL) Basic Metabolic Panel (non-fasting) (01/30/2022 7:19 AM EDT) athologist Signature Glucose Lvl 237 (H) 65 - 199 [facility] mg/dL [facility] Comment: Diabetes: >=200 mg/dL plus symp toms BUN 34 (H) 10 - 20 mg/dL [facility] Creatinine 1.45 0.80 - 1.50 mg/dL [facility] Sodium 141 135 - 145 mmol/L [facility] [...] 107 mmol/L [facility] CO2 30 22 - 31 mmol/L [facility] Anion Gap 11 5 - 15 mmol/L [facility] Calcium 9.5 8.5 - 10.5 mg/dL [facility] Estimated GFR 50 (L) >=60 mL/min/1.73 m?? [facility] [...] Organization Address City/State/[place] [address] documented in this encounter Visit Diagnoses Diagnosis ASCVD (arteriosclerotic cardiovascular d isease) Unspecified cardiovascular disease documented in this encounter Care Teams Media Liaison Officer Relationship Specialty Start Date End Date Lovely Vicente MD PCP - General 04/16/[address] [place] [address] documented as of this encounter
--- OUTSIDE RECORDS SUMMARY | 2022-02-20 08:08 | XMS_ITS | Encounter Summary ---
:1945 [address] [facility] [place] [address] Care Team Providers Name Role Phone Lovely Vicente MD Primary Care Provider Encounter Details Date Type Department Care Team Description 02/19/2022 Laboratory Appointment Lab 3L [facility] systolic [facility] [place] [id number] Social History Tobacco Use Types Packs/Day Years [...] Nobles MD [facility] ER CARDIOLOGY [place], [place] [address] (Wo rk) documented as [...] (ABNORMAL) Differential, Automated (02/19/2022 8:06 AM EDT) [facility] Method Time Signature Neutrophils % 76.0 % [facility] Neutr Abs (ANC) 5.49 1.70 - [facility] 6.10 [facility] x10(3)/[facility] LABORATORY Lymphocytes % 10.8 % [facility] Lymphocytes Abs 0.8 (L) 0.9 - 3.2 [facility] x10(3)/[facility] LABORATORY Monocytes % 10.2 % [facility] Monocyte Abs 0.7 0.3 - 0.9 [facility] x10(3)/[facility] LABORATORY Eosinophils % 1.2 % [facility] Eosinophils Abs 0.1 0.0 - 0.4 [facility] x10(3)/[facility] LABORATORY Basophils % 0.8 % [facility] Basophils Abs 0.1 0.0 - 0.1 [facility] x10(3)/[facility] LABORATORY Immature Gran % 1.00 % [facility] Comment: Immature granulocytes(IG's)percentage an d absolute count will include metamyelocytes, myelocytes, and promyelo cytes. Blood smears from CBCs yielding IG's will be scanned manually for concor dance. If this scan disagrees with the automated IG or if promyelocytes are not ed, a manual differential will be performed. Melisa Gran Abs 0.07 (H) 0.00 - 0.04 x10(3)/[facility] LABORATORY Specimen Anatomical Collection Method Collection Time Receive d Time (Source) Location / / Volume Laterality Blood 02/19/2022 8:06 AM 8:09 EDT AM EDT Resulting Agency Comment Spec In Lab Liz BROWN HEMATOLOGY ORDERABLES Performing Organization Address City/State/[place] [address] (ABNORMAL) Hemogram (02/19/2022 8:06 AM EDT) Analysis Performed At Patho logist Time Signature WBC 7.2 4.0 - 9.5 [facility] LABORATORY RBC 4.41 (L) 4.58 - [place] [facility] 5.54 [facility] x10(6)/[facility] LABORATORY Hemoglobin 13.2 (L) 13.7 - [facility] 16.5 g/dL [facility] Hematocrit 40.9 40.5 - [facility] 48.5 % [facility] MCV 92.7 82.9 - [facility] 93.1 [facility] LABORATORY MCH 29.9 27.5 - [facility] 32.1 pg [facility] MCHC 32.3 32.0 - [facility] 35[facility] g/dL [facility] Platelets 191 145 - 357 [facility] x10(3)/[facility] LABORATORY RDWSD 53.6 (H) 36.0 - [facility] 45.0 [facility] LABORATORY RDWCV 15.6 (H) 11.4 - [facility] 13.8 % [facility] LABORATORY MPV 8.7 7.6 - 12.9 [facility] LABORATORY nRBC % Auto 0.0 % [facility] nRBC Abs Auto 0.000 0.000 - [facility] 0.000 [facility] x10(3)/[facility] LABORATORY Specimen Anatomical Collection Method Collection Time Receive d Time (Source) Location / / Volume Laterality Blood 02/19/2022 8:06 AM 8:09 EDT AM EDT Resulting Agency Comment Spec In Lab Liz BROWN HEMATOLOGY ORDERABLES Performing Organization Address City/State/[place] [address] (ABNORMAL) pro-Brain Natriuretic Peptide (02/19/2022 8:06 AM EDT) P athologist Signature ProBNP 984 (H) <=449 pg/mL [facility] Specimen Anatomical Collection Method Collection Time Receive d Time (Source) Location / / Volume Laterality Blood 02/19/2022 8:06 AM 8:09 EDT AM EDT Resulting Agency Comment Spec In Lab Zulma Plunkett MD CHEMISTRY ORDERABLES Performing Organization Address City/State/[place] [address] (ABNORMAL) Basic Metabolic Panel (non-fasting) (02/19/2022 8:06 AM EDT) P athologist Signature Glucose Lvl 139 65 - 199 [facility] mg/dL [facility] Comment: Diabetes: >=200 mg/dL plus symp toms BUN 31 (H) 10 - 20 mg/dL [facility] Creatinine 1.53 (H) 0.80 - 1.50 mg/dL [facility] Sodium 142 135 - 145 mmol/L [facility] Potassium 5.4 (H) 3.5 - 5.0 mmol/L [facility] [...] mmol/L [facility] CO2 31 22 - 31 mmol/L [facility] Anion Gap 11 5 - 15 mmol/L [facility] Calcium 9.7 8.5 - 10.5 mg/dL [facility] Estimated GFR 47 (L) >=60 mL/min/1.73 m?? [facility] [...] Organization Address City/State/Z[place] [address] documented in this encounter Visit Diagnoses Diagnosis Chronic systolic heart failure documented in this encounter Care Teams Car Shagger Relationship Specialty Start Date End Date Lovely Vicente MD PCP - General 04/16/[address] [place] [address] documented as of this encounter
--- OUTSIDE RECORDS SUMMARY | 2022-02-20 08:09 | XMS_ITS | Encounter Summary ---
:1945 Author Organization [facility] [address] Care Team Providers Name Role Phone Lovely Vicente MD Primary Care Provider Encounter Details Date Type Department Care Team Description 12/12/2021 Telephone Cardiology at [facility] [place] [address] Social History Tobacco Use Types Packs/Day [...] - 12/12/2021 11:36 AM EDT RTC to Mark[facility] regarding pharmacists questions as to whether the [...] Vitaliy Nobles MD [facility] ER [address] [place], [place] [address] (Wo rk) documented as of this encounter Visit Diagnoses Not on filedocumented in this encounter Care Teams Armored Car Driver Relationship Specialty Start Date End Date Lovely Vicente MD PCP - General 04/16/[address] [place] [address] documented as of this encounter
--- OUTSIDE RECORDS SUMMARY | 2022-02-20 08:09 | XMS_ITS | Encounter Summary ---
:1945 Author Organization [facility] [place] [address] Care Team Providers Name Role Phone Lovely Vicente MD Primary Care Provider Encounter Details Date Type Department Care Team Description 12/25/2021 Laboratory Appointment Lab 3L [facility] systolic [facility] [place] [phone] Social History Tobacco Use Types Packs/Day Years [...] MD [facility] ER CARDIOLOGY [place], [place] [address] (Wo rk) documented as of [...] (ABNORMAL) Differential, Automated (12/25/2021 7:46 AM EDT) [facility] Method Time Signature Neutrophils % 82.6 % [facility]ORY Neutr Abs (ANC) 9.37 (H) 1.70 - [facility] 6.10 [facility] x10(3)/[facility] LABORATORY Lymphocytes % 7.1 % [facility] Lymphocytes Abs 0.8 (L) 0.9 - 3.2 [facility] x10(3[facility] Monocytes % 8.8 % [facility] Monocyte Abs 1.0 (H) 0.3 - 0.9 [facility] x10(3[facility] Eosinophils % 0.4 % [facility] Eosinophils Abs 0.0 0.0 - 0.4 [facility] x10(3[facility] Basophils % 0.4 % [facility] Basophils Abs 0.0 0.0 - 0.1 [facility] x10(3[facility] Immature Gran % 0.70 % [facility] [...] Gran Abs 0.08 (H) 0.00 - 0.04 x10(3)/[facility] LABORATORY Specimen Anatomical Collection Method Collection Time Receive d Time (Source) Location / / Volume Laterality Blood 12/25/2021 7:46 AM 8:01 EDT AM EDT Resulting Agency Comment Spec In Lab Liz Poole STEPHANIE HEMATOLOGY ORDERABLES Performing Organization Address City/State/[place] [address] (ABNORMAL) Hemogram (12/25/2021 7:46 AM EDT) Analysis Performed At Patho logist Time Signature WBC 11.4 (H) 4.0 - 9.5 [facility] LABORATORY RBC 4.23 (L) 4.58 - [place] 5.54 [facility] x10(6)/[facility] LABORATORY Hemoglobin 12.3 (L) 13.7 - [facility] 16.5 g/dL [facility]ORY Hematocrit 37.7 (L) 40.5 - [facility] 48.5 % [facility] MCV 89.1 82.9 - [facility] 93.1 [facility] LABORATORY MCH 29.1 27.5 - [place] 32.1 pg [facility] MCHC 32.6 32.0 - [place] 35.7 g/dL [facility] Platelets 215 145 - 357 [facility] x10(3)/[facility] LABORATORY RDWSD 49.8 (H) 36.0 - [place] [facility] 45.0 [facility] LABORATORY RDWCV 15.2 (H) 11.4 - [facility]AN 13.8 % [facility] LABORATORY MPV 9.2 7.6 - 12.9 [facility] LABORATORY nRBC % Auto 0.0 % [facility] LABORATORY nRBC Abs Auto 0.000 0.000 - [facility] 0.000 [facility] x10(3)/[facility] LABORATORY Specimen Anatomical Collection Method Collection Time Receive d Time (Source) Location / / Volume Laterality Blood 12/25/2021 7:46 AM 8:01 EDT AM EDT Resulting Agency Comment Spec In Lab Liz Poole STEPHANIE HEMATOLOGY ORDERABLES Performing Organization Address City/State/[place] [address] (ABNORMAL) Basic Metabolic Panel (non-fasting) (12/25/2021 7:46 AM EDT) P athologist Signature Glucose Lvl 272 (H) 65 - 199 [facility] mg/dL [facility]ORY Comment: Diabetes: >=200 mg/dL plus symp toms BUN 62 (H) 10 - 20 mg/dL [facility] Creatinine 1.81 (H) 0.80 - 1.50 mg/dL [facility] LABOR[facility]ORY Sodium 134 (L) 135 - [...] Organization Address City/State/[place] [address] (ABNORMAL) pro-Brain Natriuretic Peptide (12/25/2021 7:46 AM EDT) P athologist Signature ProBNP 1,380 (H) <=124 [facility] R[facility]AN pg/mL [facility] LABORATORY Specimen Anatomical Collection Method Collection Time Receive d Time (Source) Location / / Volume Laterality Blood 12/25/2021 7:46 AM 8:01 EDT AM EDT Resulting Agency Comment Spec In Lab Zulma Plunkett MD CHEMISTRY ORDERABLES Performing Organization Address City/[facility]/[place] [address] documented in this encounter Visit Diagnoses Diagnosis Chronic systolic heart failure documented in this encounter Care Teams Condenser Setter Relationship Specialty Start Date End Date Lovely Vicente MD PCP - General 04/16/[address] [place] [address] documented as of this encounter
--- OUTSIDE RECORDS SUMMARY | 2022-02-20 08:09 | XMS_ITS | Encounter Summary ---
:1945 [place] [address] Care Team Providers Name Role Phone Lovely Vicente MD Primary Care Provider Encounter Details Date Type Department Care Team Description 12/30/2021 Notes Only Cardiac Rehab [facility] Linnea Deluca, AVMSI [facility] [place] [address] Social History Tobacco Use Types Packs/Day [...] Failure team. DX: HFrEF. Referral placed to [facility] documented in this encounter Plan of Treatment Upcoming Encounters Date Type Specialty Care Team Description 03/26/2022 Office Visit Cardiology Vitaliy Nobles MD [facility] ER DR [address] [place], [place] [address] (Wo rk) documented as of this encounter Visit Diagnoses Not on filedocumented in this encounter Care Teams Photocopying Machine Operator Relationship Specialty Start Date End Date Lovely Vicente MD PCP - General 04/16/[address] [place] [address] documented as of this encounter
--- OUTSIDE RECORDS SUMMARY | 2022-02-20 08:09 | XMS_ITS | Encounter Summary ---
:1945 [place] [address] Care Team Providers Name Role Phone Lovely Vicente MD Primary Care Provider Encounter Details Date Type Department Care Team Description 12/25/2021 Office Visit Cardiology [place] [facility] [place] Poole, Chronic systolic heart [facility] [place] [address] Cardiology Dept [phone] [place], [place] [address] Social History Tobacco Use Types [...] per DC Summary - Ad[place] [facility] [place] 12/08[place], transferred from [facility], respiratory distress with hypoxia 86% on RA. [...] mg PO daily in place of Lasix. [place] is new for him and he will [...] Recommendations above ? TTE from [facility] 12/08/21 ?? 07/28/2019 Echocardiogram: SUMMARY: 1. The [...] regurgitation present. 07/07/2019 - 07/21/2019 Zio Patch Design Intern The patient had a minimum heart rate [...] hyperkalemia 4.9 today 6. Post-op atrial fibrillation [id number] (CHF, HTN, DM, vascular disease, thromboembolism) Eliquis 7. PAD 08/06/2017: Right 1st, 2nd, 3rd toe amputation 08/11/2017: Left??femoral arterial access, RLE??angiogram, Balloon angioplasty of R PT 10/25/2017: right popliteal-pedal bypass at [facility] 8. Hypothyrodism S/p thyroidectomy for goiter Levothyroxine ?? Plan: 1 month follow up with labs Liz Poole PA-C 12/25/2021 documented in this encounter Plan of Treatment Upcoming Encounters Date Type Specialty Care Team Description 03/26/2022 Office Visit Cardiology Vitaliy Nobles MD [facility] CARDIOLOGY [place], [place] [address] (Wo rk) documented as of this encounter Results (ABNORMAL) pro-Brain Natriuretic Peptide (12/25/2021 7:46 AM EDT) athologist Signature ProBNP 1,380 (H) <=124 [facility] pg/mL [facility] Specimen Anatomical Collection Method Collection Time Receive d Time (Source) Location / / Volume Laterality Blood 12/25/2021 7:46 AM 8:01 EDT AM EDT Resulting Agency Comment Spec In Lab Zulma Plunkett MD CHEMISTRY ORDERABLES Performing Organization Address City/State/[place] [address] (ABNORMAL) Basic Metabolic Panel (non-fasting) (12/25/2021 7:46 AM EDT) athologist Signature Glucose Lvl 272 (H) 65 - 199 [facility] mg/dL [facility] Comment: Diabetes: >=200 mg/dL plus symp toms BUN 62 (H) 10 - 20 mg/dL [facility] Creatinine 1.81 (H) 0.80 - 1.50 mg/dL [facility] Sodium 134 (L) 135 - 145 mmol/L [facility] Potassium 4.9 3.5 - 5.0 mmol/L [facility] [...] 15 mmol/L [facility] Calcium 9.4 8.5 - 10.5 mg/dL [facility] Estimated GFR 36 (L) >=60 [...] Address City/State/[place] [address] documented in this encounter Visit Diagnoses Diagnosis Chronic systolic heart failure documented in this encounter Care Teams Buttonhole Maker Hand Relationship Specialty Start Date End Date Lovely Vicente MD PCP - General 04/16/[address] [place] [address] documented as of this encounter
--- OUTSIDE RECORDS SUMMARY | 2022-02-20 08:09 | XMS_ITS | Encounter Summary ---
:1945 Author Organization [facility] Address [facility] [place] [address] Care Team Providers Name Role Phone Lovely Vicente MD Primary Care Provider Reason for Visit Auth/Cert Specialty Diagnoses / Procedures Referred By Contact Refer red To Contact Diagnoses ASCVD (arteriosclerotic cardiovascular disease) [I25.10] Vitaliy Nobles MD [facility] Procedures PRO PERC TRLUML CORONARY STENT W/ANGIO ONE ART/BRANCH CARDIAC CATHETERIZATION STENT PLACEMENT-SINGLE MAJOR CORONARY ARTERY OR BRANCH [facility] [place] [address] Referral ID Status Reason Start Date Expiration Date Visits Requ ested Visits Authorized [id number] 1 1 Encounter Details Date Type Department Care Team Description 01/30/2022 Hospital Encounter Short Stay Unit at Vitaliy Nobles, CVD (arteriosclerotic cardiovascular disease); Barbara Blue MD 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 Please follow up with your shoe coverer in the next 4-6 weeks. We have [...] Murray RN - 01/30/2022 4:54 PM EDT [facility] Short Stay Unit Discharge Note [...] recent PCI presenting for staged PCI to [facility]. The pt states he has been ok. [...] recent PCI presenting for staged PCI to [facility]. 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 I had referred him to cardiac rehab at [facility] last month per HF team. He was waiting until this intervention before starting the program. Reviewed managing angina /use of sl nitroglycerin. Given parameters for home exercise. 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 We discussed short walks several times per day. Will send [facility] his discharge summary from this admission. The patient should be contacted by the Program within 1- 2 weeks from discharge. Brief Op Note - Vitaliy Nobles MD - 01/30/2022 10:19 AM EDT Images from the original note were not included. Formerly [facility] [place] [address] [place] [address] CORONARY ANGIOGRAM AND PERCUTANEOUS CORONARY INTERVENTION REPORT Patient: Don Fatima : 1945 MR number: [id number] Date of Service: 01/30/2022 Bag Turner: Vitaliy Nobles MD Fellow: KEYON Elizabeth INDICATION: [...] a long 2.0 x 26 mm HARDEEP Citrus TUCKER stent and positioned it at the [...] using a 2.0 x 26 mm HARDEEP Citrus TUCKER stent. This completes the revascularization ofall [...] Nobles MD [facility] CARDIOLOGY [place], [place] [address] (Wo rk) Scheduled Orders Name [...] P athologist Signature Neutrophils % 71.8 % [facility] Neutr Abs (ANC) 3.96 1.70 - [facility] 6.10 [facility] x10(3)/[employer] LABORATORY Lymphocytes % 16.3 % [facility] Lymphocytes Abs 0.9 0.9 - 3.2 [facility] x10(3)/[facility] LABORATORY Monocytes % 10.0 % [facility] Monocyte Abs 0.6 0.3 - 0.9 [facility] x10(3)/[facility] LABORATORY Eosinophils % 0.5 % [facility] Eosinophils Abs 0.0 0.0 - 0.4 [facility] x10(3)/[facility] LABORATORY Basophils % 0.5 % [facility] Basophils Abs 0.0 0.0 - 0.1 [facility] x10(3)/[facility] LABORATORY Immature Gran % 0.90 % [facility] Comment: Immature granulocytes(IG's)percentage an d [...] Jr., MD HEMATOLOGY ORDERABLES Performing Organization Address City/State/[facility] [place] [address] (ABNORMAL) Hemogram (01/30/2022 2:12 PM EDT) Analysis Performed At Patho logist Time Signature WBC 5.5 4.0 - 9.5 [facility] x10(3)/[facility] LABORATORY RBC 4.30 (L) 4.58 - [facility] 5.54 [facility] x10(6)/[employer] LABORATORY Hemoglobin 12.7 (L) 13.7 - [facility] 16.5 g/dL [facility] Hematocrit 39.4 (L) 40.5 - [facility] 48.5 % [facility] MCV 91.6 82.9 - [facility] 93.1 [facility] LABORATORY MCH 29.5 27.5 - [facility] 32.1 pg [facility]ORY MCHC 32.2 32.0 - [facility] 35.7 g/dL [facility] Platelets 172 145 - 357 [facility] x10(3)/[facility] LABORATORY RDWSD 54.5 (H) 36.0 - [facility] 45.0 [facility] LABORATORY RDWCV 16.4 (H) 11.4 - [facility] 13.8 % [facility] LABORATORY MPV 9.2 7.6 - 12.9 [facility] LABORATORY nRBC % Auto 0.0 % [facility] nRBC Abs Auto 0.000 0.000 - [facility] 0.000 [facility] x10(3)/[employer] LABORATORY Specimen Anatomical Collection Method Collection Time Receive d Time (Source) Location / / Volume Laterality Blood 01/30/2022 2:12 PM 2 2:37 EDT PM EDT Resulting Agency Comment Spec In Lab Eddi Elizabeth Jr., MD HEMATOLOGY ORDERABLES Performing Organization Address City/State/[place] [address] (ABNORMAL) Basic Metabolic Panel (non-fasting) (01/30/2022 2:12 PM EDT) athologist Signature Glucose Lvl 163 65 - 199 [facility] mg/dL [facility] Comment: Diabetes: >=200 mg/dL plus symp toms BUN 30 (H) 10 - 20 mg/dL [facility] Creatinine 1.47 0.80 - 1.50 mg/dL [facility] [...] estions. Chloride 101 98 - 107 mmol/L [facility] CO2 28 22 - 31 mmol/L [facility] Anion Gap 11 5 - 15 mmol/L [facility] Calcium 9.2 8.5 - 10.5 mg/dL [facility] Estimated GFR 49 (L) >=60 mL/min/1.73 m?? [facility] Comment: This patient's estimated GFR [...] Nobles MD CHEMISTRY ORDERABLES Performing Organization Address City/[facility]/ZIP [facility] Phon e Number [address] POCT Glucose (01/30/2022 1:41 PM EDT) athologist Signature POC Glucose 148 65 - [facility]dL [facility] Comment: Supplemental ranges: <140 mg/dL before meals <180 mg/dL all other times of the day Specimen Anatomical Collection Method Collection Time Receive d Time (Source) Location / / Volume Laterality Blood 01/30/2022 1:41 PM 2 1:41 EDT PM EDT Vitaliy Nobles MD POINT OF CARE TEST ORDERABLE S Performing Organization Address City/[facility]/ZIP [facility] Phon e Number [address] POCT Glucose (01/30/2022 10:48 AM EDT) athologist Signature POC Glucose 193 65 - 199 [facility] mg/dL [facility] Comment: Supplemental ranges: <140 mg/dL before meals <180 mg/dL all other times of the day Specimen Anatomical Collection Method Collection Time Receive d Time (Source) Location / / Volume Laterality Blood 01/30/2022 10:48 01/30/2022 AM EDT 10:48 AM EDT Vitaliy Sandra Nobles MD POINT OF CARE TEST ORDERABLE S Performing Organization Address City/State/[place] [address] EKG 12 Lead (01/30/2022 10:33 AM EDT) Component Value Ref Range Test Analysis Performed Pathologis t Method Time At Signature Ventricular rate 64 BPM MUSE SYSTEM Atrial Rate 64 BPM MUSE SYSTEM P-R Interval 162 ms MUSE SYSTEM QRS Duration 94 ms MUSE SYSTEM Q-T Interval 422 ms MUSE SYSTEM QTC Calculated 435 ms MUSE SYSTEM (Bezet) Calculated P [place] 41 degrees MUSE SYSTEM Calculated R [place] -27 degrees MUSE SYSTEM Calculated T [place] 104 degrees MUSE SYSTEM INTERPRETATION Normal sinus rhythm MUSE SYSTEM Anterolateral infarct (cited on or before 09-DEC-2021) Abnormal ECG When compared with ECG of 10-DEC-2021 11:17, No significant change was found Confirmed by Gary Perez ([id number]) on 01/30/2022 5:57:5 2 PM Specimen Anatomical [...] SYSTEM - 01/30/2022 2:09 PM ED T ?[facility] ? Cardiac Cathete rization/Intervention Report ? Patient Name: Don Fatima. ? Procedure Date: 01/30/2022 ? A #: [id number] ? Primary Physician: Nobles, Vitaliy P ? Case #: [id number] ? File Name: [id number] ? Catheterization Order Number: [id number] ? [facility] ? Final Report [place], [place] ? Patient Name: ? Don E. Stewa rt ? ID#: ?[id number] ? : ?1945 ? Procedure Date: ? January 30, 2022 ? Case #: ? [id number] ? Room: ? 1 ? Case Physician: [...] procedure was Urgent. The indication for ?the quality assurance qa lab technician visit is stable kn own [...] administe red. A total of 150cc of Iso-Urdy were ?opened, 124cc of Iso-Rudy were a [...] guiding catheter an d a 3.[address] [facility] [address] ??20 Mhz ?using Manual pullback. ??Imagin [...] A premounted 2.00 x 26 mm Hardeep Citrus (TUCKER) ? was deployed wi th a [...] Wedelivered along 2.0 x 26 mm HARDEEP Citrus ? TUCKER stent and p ositioned it [...] dose administered prior to arrival in the quality assurance qa lab technician. ?Recommended anti-platelet/anti- thrombotic regimen: ?Continue [...] require ?modification of this regimen. C onsult [facility] Interventional Cardiology for ?questions. ?The [...] using a 2.0 x 26 mm HARDEEP Citrus TUCKER stent. ?This completes the revasculariz ation [...] MD CARDIAC CATH ORDERABLES Performing Organization Address [facility]/ZIP Code Phon e Number CARDIOMAC SYSTEM (ABNORMAL) POCT Glucose (01/30/2022 9:04 AM EDT) P athologist Signature POC Glucose 212 (H) 65 - 199 [facility] mg/dL [facility] Comment: Supplemental ranges: <140 mg/dL before meals <180 mg/dL all other times of the day Specimen Anatomical Collection Method Collection Time Receive d Time (Source) Location / / Volume Laterality Blood 01/30/2022 9:04 AM 2 9:04 EDT AM EDT Vitaliy Sandra Nobles MD POINT OF CARE TEST ORDERABLE S Performing Organization Address [facility]/[place] [address] (ABNORMAL) POCT Glucose (01/30/2022 8:10 AM EDT) P athologist Signature POC Glucose 224 (H) 65 - 199 [facility] mg/dL [facility] Comment: Supplemental ranges: <140 mg/dL before meals <180 mg/dL all other times of the day Specimen Anatomical Collection Method Collection Time Receive d Time (Source) Location / / Volume Laterality Blood 01/30/2022 8:10 AM 2 8:10 EDT AM EDT Vitaliy Nobles MD POINT OF CARE TEST ORDERABLE S Performing Organization Address [facility]/[place] [address] documented in this encounter Visit Diagnoses Diagnosis ASCVD (arteriosclerotic cardiovascular d isease) Unspecified cardiovascular disease 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 ASHD (arteriosclerotic heart disease) Coronary atherosclerosis of unspecified type of vessel, pauma or graft ASCVD (arteriosclerotic cardiovascular d isease) Unspecified cardiovascular disease documented in this encounter Admitting Diagnoses Diagnosis CAD (coronary artery disease) Coronary atherosclerosis of unspecified type of vessel, pauma or graft documented in this encounter Administered [...] Procedure), Routine niCARdipine (Cardene) (100 mcg/mL) dilution (RN COMMUNITY) (CANCELED ) 0927 (Given - Provider: Vitaliy [...] (Intra-Procedure) documented in this encounter Care Teams Channel Process Plant Operator Relationship Specialty Start Date End Date Lovely Vicente MD PCP - General 04/16/[address] [place] [address] documented as of this encounter
--- OUTSIDE RECORDS SUMMARY | 2022-02-20 08:09 | XMS_ITS | Encounter Summary ---
:1945 Author Organization [facility] [address] Care Team Providers Name Role Phone Lvoely Vicente MD Primary Care Provider Reason for Visit Reason Onset Date Comments Medication Refill 12/12/2021 Torsemide Encounter Details Date Type Department Care Team Description 12/12/2021 Refill Cardiology at [facility] Janneth Padilla, Medication Refill [facility] STEPHANIE (Torsemide) [place] [address] CARDIOLOGY DEPT. [place], [place] [address] (Wo rk) Social History Tobacco [...] Vitaliy Nobles MD [facility] [address] [place], [place] [address] (Wo rk) documented as of this encounter Visit Diagnoses Diagnosis Chronic systolic heart failure documented in this encounter Care Teams Manager Dialysis Relationship Specialty Start Date End Date Lovely Vicente MD PCP - General 9/22/[address] [place] [address] documented as of this encounter
--- OUTSIDE RECORDS SUMMARY | 2022-02-20 08:09 | XMS_ITS | Encounter Summary ---
:1945 Author Organization [place] [address] Care Team Providers Name Role Phone Lovely Vicente MD Primary Care Provider Reason for Referral Consultation (Routine) - Closed Specialty Diagnoses / Referred By Contact Referred To Contact Procedures Cardiac Rehabilitation Diagnoses Acute HFrEF (heart failure with reduced ejection fraction) Janneth Padilla, Cardiac Rehab, [address] [place] CARDIOLOGY DEPT. [address] [place] [address] Referral ID Status Reason Start Date Expiration Date Visits V isits Requested Authorized [id number] Closed Consult, 12/12/2021 12/12/2022 36 36 Test & Treat Reason for Visit Auth/Cert Specialty Diagnoses / Procedures Referred By Contact Refer red To Contact Diagnoses NSTEMI Procedures emerg ipi Referral ID Status Reason Start Date Expiration Date Visits Requ ested Visits Authorized [id number] 1 1 Encounter Details Date Type Department Care Team Description 12/08/2021 - Hospital Encounter Intermediate Cardiac Iker Cuevas MD [facility] [place] [address] Non-ST elevation myocardial infarction ( NSTEMI); 12/12/2021 Care Unit Ifeanyi Rene MD [facility] [address] ST elevation myocardial infarction (STEM I), unspecified artery; [facility] Acute HFr EF (heart failure with reduced ejection fraction) [place] [address] Social History Tobacco Use Types Packs/Day Years [...] Don Fatima Patient Age: 76 y.o. Language: Mongolian Race: White Ethnicity: Not nor Admit date: [...] Peter PA-C Kelly LaFlamme PA-C Cardiovascular Medicine [phone] Discharge Diagnoses (Hospital Problems) and Secondary Diagnoses [...] 3.75 guiding catheter and a 3.5 Fr Washoe Eye Washoe 20 Mhz using Manual pullback. Imaging was successful. Image quality was good. The ostial LCX showed moderate diffuse atherosclerotic plaque with scattered three quadrant calcification. Measurements were performed after pre-dilation. Post Intervention: The stent was well expanded and apposed. Intravascular Ultrasound was performed in the distal LM using a 7 Fr EBU 3.75 guiding catheter and a 3.5 Fr Washoe Eye Washoe 20 Mhz using Manual pullback. Imaging was [...] LCX part of the stent to 20 darhsan pressure. We used an additional 5.5 x [...] may require modification of this regimen. Consult [facility] [place]ventional Cardiology for questions. The 1 [...] congestion and cardiomegaly. ?? TTE from [facility] 12/08/21 ? Prior Cardiac Studies: TTE [...] thyroidectomy in 2012 who presented to [facility] with 1 week progressing breathlessness with [...] with Liz Poole PA-C. ?? At [facility], respiratory distress with hypoxia 86% on [...] mg PO daily in place of lasix. [place] is new for him and he will have a BMP checked on 12/[address] Cuevas spoke with the patient's and told her that him drinking too much water and diet drinks did not cause his CO. This is what his thought was the [...] to be ~$24/mo; affordable per patient. Post [facility] he was started on Eliquis. He continued [...] appointments: During 8am-5pm Wednesday through Wednesday call [phone] to speak with a nurse in the cardiology clinic All other times call [phone] and ask to speak to the educational director training and documentation specialist. Return to work: One week Driving: No driving for 48 hours after catheterization. Follow up Appointments: PCP Lovely Vicente MD [phone] to see patient at the end of December for annual check up. Patient to see Dr. Lorenzana at 1120 am at December 19 for a post hospital check up. Plumbing Engineer Dr. De Oliveira to see you in [facility]. Left a message for office to set a date and time. Please call [phone] Nobles to see the patient for a same day cath in 2-3 weeks from now. Office to call with a date and time. For questions please call [phone] Home oxygen therapy: N/A Arrangements for VNA/home care: none Future Appointments and Orders Future Orders Complete By Expires Basic Metabolic Panel (non-fasting) [LAB15 Custom] 12/19/2021 (Approximate) 12/12/2022 Process Instructions: INCLUDES: Calcium, BUN, Creat, GFR, Glucose, Lytes Scheduling Instructions: Comments: Questions: Referral to Cardiac Rehab [LIO296 Custom] As directed Process Instructions: If no [...] appointments: During 8am-5pm Wednesday through Wednesday call [phone] to speak with a nurse in the cardiology clinic All other times call [phone] and ask to speak to the educational director training and documentation specialist. Return to work: One week Driving: No driving for 48 hours after catheterization. Follow up Appointments: PCP Lovely Vicente MD [phone] to see patient at the end of December for annual check up. Patient to see Dr. Lorenzana at 1120 am at December 19 for a post hospital check up. Plumbing Engineer Dr. De Oliveira to see you in [facility]. Left a message for office to set a date and time. Please call [phone] Nobles to see the patient for a same day cath in 2-3 weeks from now. Office to call with a date and time. For questions please call [phone] Home oxygen therapy: N/A Arrangements for VNA/home [...] Progress Note Patient Name: Don Fatima Service: PHYSICIAN PRACTICE ADMINISTRATOR / PA Responsible Attending: Ifeanyi Truong MD [...] vascular congestion and cardiomegaly. TTE from [facility] 12/08/21 Prior Cardiac Studies: TTE 07/28/2019 [...] with MD Janneth Neville PA 12/12/2021 Pager [phone] Associated attestation - Ifeanyi Truong MD - [...] ratio for each meal) Desirae Jett APRN [facility] Endocrinology Diabetes Management Pager [phone] 20 minutes of this 35 minute visit [...] Progress Note Patient Name: Don Fatima Service: PHYSICIAN PRACTICE ADMINISTRATOR / PA Responsible Attending: Iker Cuevas MD [...] + trop. Known CAD with hx of CO and CABG. DM. MARIA VICTORIA.ICM. ??? ASHD [...] 1.13* 0.92* 0.89* Pertinent Radiographic/Diagnostic Results: R/[facility] 12/10/21 Hemodynamics: Right Heart Pressures [...] vascular congestion and cardiomegaly. TTE from [facility] 12/08/21 Prior Cardiac Studies: TTE 07/28/2019 [...] 5 Mg HAYS/T/// and 7.5 mg M/. [place] check DOAC, [...] and answered his questions. Iker Cuevas MD [facility] Total time spent on review of records prior to visit, face to face time with patient during visit, documentation, and coordination of care with other clinicians: 25 minutes. . Iker Cuevas MD - 12/10/2021 12:30 PM EDT Images from the original note were not included. Inpatient Cardiology Progress Note Patient Name: Don Fatima Service: PHYSICIAN PRACTICE ADMINISTRATOR / PA Responsible Attending: Iker Cuevas MD Reason for continued hospitalization: NSTEMI- s/p R/LHC- PCW 27, occluded SVGs s/p PCI to ostial LCX ADHF and hypoxia- IV diuresis Active Problems: Active Hospital Problems Diagnosis ??? Admitted with 2 days of sob, hypoxemia, and + trop. Known CAD with hx of CO and CABG. DM. MARIA VICTORIA.ICM. ??? ASHD [...] ??? heparin (porcine) infusion 1,600 Units/hr (12/09/21 7837) PRN Meds:ipratropium-albuteroL, senna-docusate, bisacodyL, sodium chloride 0.9 [...] 1.13* 0.92* 0.89* Pertinent Radiographic/Diagnostic Results: R/[facility] 12/10/21 Hemodynamics: Right Heart Pressures [...] vascular congestion and cardiomegaly. TTE from [facility] 12/08/21 Prior Cardiac Studies: TTE 07/28/2019 [...] Discussed with MD Migdalia Peter PA-C Pager #[phone] 12/10/2021 Cardiology Attending Note I have seen [...] updated and given pictures. Iker Cuevas MD [facility] Total time spent on review of records prior to visit, face to face time with patient during visit, documentation, and coordination of care with other clinicians: 35 minutes. Iker Cuevas MD - 12/09/2021 7:28 AM EDT Images from the original note were not included. Inpatient Cardiology Progress Note Patient Name: Don Fatima Service: PHYSICIAN PRACTICE ADMINISTRATOR / PA Responsible Attending: Iker Cuevas MD Reason for continued hospitalization: NSTEMI- awaiting R/LHC ADHF and hypoxia- IV diuresis, R/LHC Active Problems: Active Hospital Problems Diagnosis ??? Admitted with 2 days of sob, hypoxemia, and + trop. Known CAD with hx of CO and CABG. DM. MARIA VICTORIA.ICM. ??? ASHD [...] vascular congestion and cardiomegaly. TTE from [facility] 12/08/21 Prior Cardiac Studies: TTE 07/28/2019 [...] Discussed with MD Migdalia Peter PA-C Pager #[phone] 12/09/2021 Cardiology Attending Note I have seen and examined the patient. I agree with the findings above. Developed CHF early this am despite getting more iv lasix last evening. Feeling better now. INR > 2. Lungs still wet at base. Echo at [facility] showed EF 35% with mild mod MR slightly lower than last value here. -vit K 2.5 orally to facilitate correction of INR- this will take 12-24 hours to take effect -furosemide 80 mg iv now -postpone right and left heart cath until tomorrow given INR and ADHF -increase statin to achieve LDL < 70 -CPAP tonight Iker Cuevas MD [facility] Total time spent on review of [...] Hospital Admit Date: 12/08/2021 Inpatient Attending: Iker uCevas MD PCP: Lovely Vicente MD Presenting Diagnosis/Chief Complaint: Shortness of breath while lying Active Problem List: Active Hospital Problems Diagnosis ??? Admitted with 2 days of sob, hypoxemia, and + trop. Known CAD with hx of CO and CABG. DM. MARIA VICTORIA.ICM. ??? ASHD [...] thyroidectomy in 2012 who presented to [facility] with 1 week progressing breathlessness with [...] 03/2021 with Liz Poole PA-C. At [facility], respiratory distress with hypoxia 86% on [...] SETUP performed by Manny Mcknight MD at [facility] OR ??? PRO AMPUTATION FOOT, TRANSMETATARSAL Right 08/09/2017 AMPUTATION, TRANSMETATARSAL (WRVU 12.71) performed by Yonathan Smith MD at [facility] OR ??? PRO CABG, ARTERIAL, SINGLE N/A 07/07/2017 @CABG, USING ARTERIAL GRAFT;SINGLE ARTERIAL GRAFT (WRVU 33.75) performed by Yuan Retana MD at [facility] OR ??? PRO CABG, ARTERY-VEIN, TWO N/A 07/07/2017 @CABG, TWO VENOUS GRAFTS & ARTERIAL GRAFT (WRVU 7.93) performed by Yuan Retana MD at [facility] OR ??? PRO COLONOSCOPY, REMV LESN, SNARE 01/16/2014 COLONOSCOPY, POLYPECTOMY, REMOVAL LESION BY SNARE performed by Nohemi Jaimes MD at [facility] ENDOSCOPY ??? PRO DRESSING CHANGE UNDER ANESTHESIA Right 08/11/2017 (MSURG) DRESSING CHANGE (FOR OTHER THAN IVAN) UNDER ANES. (WRVU 0.86) performed by Lamar Smith MD at [facility] OR ??? PRO ENDOSCOPY W/VIDEO-ASST VEIN HARVEST, CABG Right 07/07/2017 ENDOSCOPIC HARVEST VEIN(S) FOR CABG (WRVU 0.31) performed by Yuan Retana MD at [facility] OR ??? PRO THYROIDECTOMY 03/28/2013 THYROIDECTOMY, TOTAL OR COMPLETE performed by Manny Mcknight MD at [facility] MAIN OR Significant Family History: Family [...] 65 - 199 mg/dL Labs at [facility] 12/08/2021-troponin I 8004 (UN L <60), 12/07- WBC 13.7, hemoglobin 12.6, hematocrit 38.5, platelet 197, absolute neutrophils 11.9, INR 1.7, D-dimer 4 3, potassium 4.2, BUN 25, creatinine 1.5, GFR 46, glucose 214, A1c 7.3, magnesium 1.9, total bilirubin 1.2, AST 41, ALT 25, alk phos 86, albumin 3.5, coronavirus 2019 PCR negative, NT proBNP 5419. ASSESSMENT: oDn Fatima is a 76 y.o. male with [...] for ADRs. Trend troponins. Admission EKG. [facility] 12/09; consented. TTE. Telemetry monitoring, [...] #Diet-carb control; n.p.o. after midnight for [facility] #DVT prophy- heparin infusion #GI prophy- PPI Discussed with MD Morgan Peter PA-C APP2 pager [phone] 12/08/2021 Cardiology Attending Note I have seen [...] is type 1 due to graft or [place] coronary stenosis vs acute injury from CHF. 3. PAF: currrently in NSR. Have replaced warfarin with heparin 4. PAD: stable 5. DM: stable 6. CKD: will monitor and minimize contrast. Pt very appreciative of Dr. Yuan Retana's care in 2018. Will let him know patient is here. Iker Cuevas MD [facility] documented in this encounter Miscellaneous Notes Care Management Discharge - Favian Norman, RN - 12/12/2021 9:56 AM EDTSummary: [...] Type: *No Product type* / Secondary Insurance: [employer] Prescription Coverage: Yes This plan was formulated [...] cath without complications. Migdalia Parker PA-C Pager #[phone] 12/10/2021 Initial Assessments - Nick Georges RN [...] COVID test: Lab Results Component Value Date [id number] Not Detected 12/08/2021 Past medical History: Past [...] spouse would be surrogate decision maker per [place] surrogate decision making law. (Only good for 180 days) Any patient receiving care at [facility] must abide by [place] law. The hierarchy for surrogate decision making [...] (i) The agent with financial power of tax associate attorney or a conservator appointed in [...] - standard, cane - straight Home Address: [address] [place] [address] [place] [address] Social & Family Supports: All names listed below confirmed with patient as current and correct Extended Emergency Contact Information Primary Emergency Contact: Kisha Fatima Address: [address] [place] [address] [place] [address] [facility] Mobile Relation: Spouse Secondary Emergency Contact: Elba Swenson Address: [address] [place] Relation: Child Current Care Provided [...] type* / Secondary Insurance: [employer] [facility] Prescription Coverage: Yes Preferred Pharmacy: [facility] [address] [address] - [place], [place] - [address] [place] [address] Status: Patient is a : unable to assess Primary Care Provider: Lovely Vicente MD [phone] Patient/Caregiver Goals of Treatment: Get out of here Potential Needs for Transition of Care: none Agency Referrals: none patient has used [facility] in the past Transportation: no concerns Transportation Anticipated: family or friend will provide Concerns to be Addressed: patient refuses services, discharge planning Assessment: Patient is admitted [facility] Service pager [phone] for 76 y.o.??male??with h/o??CAD s/p 3vCABG (THOMPSON-LAD, [...] status on current unit. Nick Georges RN technical sales engineer, Office of Care Management Pager: [phone] Brief Op Note - Vitaliy Nobles MD - 12/10/2021 8:31 AM EDT Images from the original note were not included. [facility] [place] [address] CORONARY ANGIOGRAM AND PERCUTANEOUS CORONARY INTERVENTION REPORT Patient: Don Fatima : 1945 MR number: [id number] Date of Service: 12/10/2021 Cargo Bracer: Vitaliy Nobles MD Fellow: Rancho Woods MD [...] management and to provide a review of urogynaecologist diabetes care. Diabetes History: Don Fatima has had diabetes for 10 years. He has been on insulin for the last several years andis managed by his PCP. Lives in [place], [place] with his . States that he [...] Hold] heparin (porcine) infusion 1,600 Units/hr (12/09/21 3117) PRN: [MAR Hold] ipratropium-albuteroL, [MAR Hold] senna-docusate, [...] your patient Desirae Johnie QUINONES Endocrinology Pager [phone] 70 minutes of this 80 minute visit [...] + trop. Known CAD with hx of CO and CABG. DM. MARIA VICTORIA.ICM. ??? ASHD [...] to remain on Med/Surg floor, please page [phone] for any further questions or concerns. LANDON [...] for further details. STEPHANIE Rebolledo 12/08/2021 Pager [phone] documented in this encounter Plan of Treatment Upcoming Encounters Date Type Specialty Care Team Description 03/26/2022 Office Visit Cardiology Vitaliy Nobles MD [facility] DR CARDIOLOGY [facility], [place] [address] (Wo rk) Scheduled Referrals Name Type [...] Glucose 215 (H) 65 - 199 [facility] mg/dL [facility] Comment: Supplemental ranges: <140 mg/dL before meals <180 mg/dL all other times of the day Specimen Anatomical Collection Method Collection Time Receive d Time (Source) Location / / Volume Laterality Blood 12/12/2021 7:42 AM 7:42 EDT AM EDT Ifeanyi Truong MD POINT OF CARE TEST ORDERABLE S Performing Organization Address City/State/[place] [address] (ABNORMAL) Differential, Automated (12/12/2021 4:51 AM EDT) athologist Signature Neutrophils % 75.4 % [facility]OR[facility]ORY Neutr Abs (ANC) 5.95 1.70 - [facility] 6.10 [facility] x10(3)[facility] LABORATORY Lymphocytes % 12.2 % [facility] LAB[facility] Lymphocytes Abs 1.0 0.9 - 3.2 [facility] x10(3)/[facility] LABORATORY Monocytes % 9.5 % [facility] LABOR[facility]ORY Monocyte Abs 0.8 0.3 - 0.9 [facility] x10(3)[facility] LABORATORY Eosinophils % 1.8 % [facility] LABOR[facility]ORY Eosinophils Abs 0.1 0.0 - 0.4 [facility] x10(3)/[facility] LABORATORY Basophils % 0.5 % [facility] LABORATORY Basophils Abs 0.0 0.0 - 0.1 [facility] x10(3)/[facility] LABORATORY Immature Gran % 0.60 % [...] Abs 0.05 (H) 0.00 - 0.04 x10(3)/[facility] LABORATORY Specimen Anatomical Collection Method Collection Time Receive d Time (Source) Location / / Volume Laterality Blood 12/12/2021 4:51 AM 5:06 EDT AM EDT Resulting Agency Comment Spec In Lab Bijan Sun MD HEMATOLOGY ORDERABLES Performing Organization Address City/State/[place] [address] (ABNORMAL) Hemogram (12/12/2021 4:51 AM EDT) Analysis Performed At Patho logist Time Signature WBC 7.9 4.0 - 9.5 [facility] x10(3)/[facility] LABORATORY RBC 4.19 (L) 4.58 - [facility] 5.54 [facility] x10(6)/[facility] LABORATORY Hemoglobin 12.1 (L) 13.7 - [facility] 16.5 g/dL [facility] Hematocrit 36.7 (L) 40.5 - [facility] 48.5 % [facility] MCV 87.6 82.9 - [facility] 93.1 [facility] LABORATORY MCH 28.9 27.5 - [facility] SU 32.[address] [facility] MCHC 33.0 32.0 - [facility] 35.7 g/dL [facility] Platelets 231 145 - 357 [facility] x10(3)/[facility] LABORATORY RDWSD 47.2 (H) 36.0 - [facility] [employer] 45.0 [facility] LABORATORY RDWCV 14.6 (H) 11.4 - [facility] SU 13.8 % [facility] MPV 9.5 7.6 - 12.9 [facility] LABORATORY nRBC % Auto 0.0 % [facility] LABORATORY nRBC Abs Auto 0.000 0.000 - [facility] SU 0.000 [facility] x10(3)/[facility] LABORATORY Specimen Anatomical Collection Method Collection Time Receive d Time (Source) Location / / Volume Laterality Blood 12/12/2021 4:51 AM 2 5:06 EDT AM EDT Resulting Agency Comment Spec In Lab Bijan Sun MD HEMATOLOGY ORDERABLES Performing Organization Address City/[facility]/[place] [address] (ABNORMAL) Prothrombin Time (12/12/2021 4:51 AM EDT) P athologist Signature PT 14.9 (H) 9.4 - 12.5 [facility] LABORATORY INR 1.3 [facility] [...] Cuevas MD HEMATOLOGY ORDERABLES Performing Organization Address City/[facility]/[place] [address] (ABNORMAL) BMP w/fasting Glucose (12/12/2021 4:51 AM EDT) P athologist Signature Glucose 152 (H) 65 - 99 [facility] Fasting mg/dL [facility] Comment: ?Fasting* Glucose Interpretive C [...] of Diabetes Mellitus, Position Statement from the [place] [employer]. ??Diabete s Care, Volume 33, Supplement 1, Jul 2009 BUN 52 (H) 10 - 20 mg/dL [facility] Creatinine 1.72 (H) 0.80 - 1.50 mg/dL [facility] Gap 17 (H) 5 - 15 mmol/L [facility] Calcium 8.9 8.5 - 10.5 [...] Organization Address City/State/[place] [address] Magnesium (12/12/2021 4:51 AM EDT) athologist Signature Magnesium 1.02 0.69 - 1.07 [facility] mmol/L [facility] Specimen Anatomical Collection Method Collection Time Receive d Time (Source) Location / / Volume Laterality Blood 12/12/2021 4:51 AM 2 5:06 EDT AM EDT Resulting Agency Comment Spec In Lab Iker Cuevas MD CHEMISTRY ORDERABLES Performing Organization Address City/[facility]/ZIP Code Phon e Number [address] POCT Glucose (12/12/2021 3:43 AM EDT) athologist Signature POC Glucose 138 65 - 199 [facility] mg/dL [facility] Comment: Supplemental ranges: <140 mg/dL before meals <180 mg/dL all other times of the day Specimen Anatomical Collection Method Collection Time Receive d Time (Source) Location / / Volume Laterality Blood 12/12/2021 3:43 AM 2 3:43 EDT AM EDT Iker Cuevas MD POINT OF CARE TEST ORDERABLE S Performing Organization Address City/[facility]/ZIP Code Phon e Number [address] POCT Glucose (12/11/2021 11:44 PM EDT) athologist Signature POC Glucose 124 65 - 199 [place] SU mg/dL [facility] Comment: Supplemental ranges: <140 mg/dL before meals <180 mg/dL all other times of the day Specimen Anatomical Collection Method Collection Time Receive d Time (Source) Location / / Volume Laterality Blood 12/11/2021 11:44 12/11/2021 PM EDT 11:44 PM EDT Iker Cuevas MD POINT OF CARE TEST ORDERABLE S Performing Organization Address City/State/ZIP Code [place] [address] (ABNORMAL) POCT Glucose (12/11/2021 8:12 PM EDT) athologist Signature POC Glucose 200 (H) 65 - 199 [facility] mg/dL [facility] Comment: Supplemental ranges: <140 mg/dL before meals <180 mg/dL all other times of the day Specimen Anatomical Collection Method Collection Time Receive d Time (Source) Location / / Volume Laterality Blood 12/11/2021 8:12 PM 2 8:12 EDT PM EDT Iker Cuevas MD POINT OF CARE TEST ORDERABLE S Performing Organization Address City/State/[place] [address] (ABNORMAL) POCT Glucose (12/11/2021 6:50 PM EDT) athologist Signature POC Glucose 245 (H) 65 - 199 [facility] mg/dL [facility] Comment: Supplemental ranges: <140 mg/dL before meals <180 mg/dL all other times of the day Specimen Anatomical Collection Method Collection Time Receive d Time (Source) Location / / Volume Laterality Blood 12/11/2021 6:50 PM 2 6:50 EDT PM EDT Iker Cuevas MD POINT OF CARE TEST ORDERABLE S Performing Organization Address City/State/[place] [address] (ABNORMAL) POCT Glucose (12/11/2021 4:00 PM EDT) athologist Signature POC Glucose 383 (H) 65 - 199 [facility] mg/dL [facility] Comment: Supplemental ranges: <140 mg/dL before meals <180 mg/dL all other times of the day Specimen Anatomical Collection Method Collection Time Receive d Time (Source) Location / / Volume Laterality Blood 12/11/2021 4:00 PM 2 4:00 EDT PM EDT Iker Cuevas MD POINT OF CARE TEST ORDERABLE S Performing Organization Address City/State/[place] [address] [facility] [address] (ABNORMAL) POCT Glucose (12/11/2021 12:01 PM EDT) P athologist Signature POC Glucose 342 (H) 65 - 199 [place] mg/dL [facility] Comment: Supplemental ranges: <140 mg/dL before meals <180 mg/dL all other times of the day Specimen Anatomical Collection Method Collection Time Receive d Time (Source) Location / / Volume Laterality Blood 12/11/2021 12:01 12/11/2021 PM EDT 12:01 PM EDT Iker Cuevas MD POINT OF CARE TEST ORDERABLE S Performing Organization Address City/State/ZIP Code Phon e Number [place] [id number] COVID-19 PCR (12/11/2021 10:13 AM EDT) Patholo gist Method Time Signature SARS-CoV-2 Not Detected Not Detected [facility] RNA [facility] Comment: This result should be [...] diagnosis of COVID-19 is performed using the [employer] m RONNA S-CoV-2 Assay as authorized by the FDA Emergency Use Authorization (EUA). This EUA assay is intended for In-vitro Diagnostic (IVD) use with respiratory sp ecimens such as nasopharyngeal swabs collected from individuals during the ac terrence phase of infection. This assay is performed based on the instructions for use provided by [employer] and additional guidance provided by CDC and FDA. Testing is performed in the Clinical Genomics and Advanced Technolog y Laboratory within the Department of Pathology and Laboratory Medicine at [facility], certified under the Clinical [...] clinical management guidance information are available at [facility] CDC Coronavirus Disease 2019 (COVID-19) webpage under Information fo r Healthcare Professionals (https://www.cdc.gov/coronavirus/2019-nc ov/hcp/index.html) Additional information about this and ot her EUA tests can be found in provider and patient fact sheets at the following FDA website: https://www.fda.gov/medical-devices/eszmlpbkjal-zxbviji-2731-klwsw-35-tyrnjufhz- ipa-mtviwiyrjasqsf-mikqvbb-devices/msyen-rynsyxmklsw-shct SARS-Cov-2 RNA Source PHYSICIAN PRACTICE ADMINISTRATOR Swab [facility]OR[facility] Specimen (Source) Anatomical Collection Method Collection Time Re ceived Time Location / / Volume Laterality Nasopharyngeal Swab 12/11/2021 10:13 0503/2022 AM EDT 11:16 AM EDT Comment: Symptoms->Surveillance Resulting Agency Comment Spec In Lab Iker Cuevas MD MICROBIOLOGY - GENERAL ORDER [place] Performing Organization Address City/State/ZIP Code Phon e Number [place] [id number]ORY [address] POCT Glucose (12/11/2021 7:34 AM EDT) athologist Signature POC Glucose 198 65 - 199 [facility] mg/dL [facility] Comment: Supplemental ranges: <140 mg/dL before meals <180 mg/dL all other times of the day Specimen Anatomical Collection Method Collection Time Receive d Time (Source) Location / / Volume Laterality Blood 12/11/2021 7:34 AM 2 7:34 EDT AM EDT Iker Cuevas MD POINT OF CARE TEST ORDERABLE S Performing Organization Address City/State/ZIP Code Phon e Number [address] (ABNORMAL) POCT Glucose (12/11/2021 5:07 AM EDT) athologist Signature POC Glucose 208 (H) 65 - 199 [facility] mg/dL [facility] Comment: Supplemental ranges: <140 mg/dL before meals <180 mg/dL all other times of the day Specimen Anatomical Collection Method Collection Time Receive d Time (Source) Location / / Volume Laterality Blood 12/11/2021 5:07 AM 2 5:07 EDT AM EDT Iker Cuevas MD POINT OF CARE TEST ORDERABLE S Performing Organization Address City/State/ZIP Code Phon e Number [address] (ABNORMAL) Differential, Automated (12/11/2021 4:28 AM EDT) [facility] gist Method Time Signature Neutrophils % 79.6 % [facility]OR[facility]ORY Neutr Abs (ANC) 7.01 (H) 1.70 - [facility] 6.10 [facility] x10(3)/[facility] L LABORATORY Lymphocytes % 9.1 % [facility]ORY Lymphocytes Abs 0.8 (L) 0.9 - 3.2 [facility] x10(3)/[facility] LABORATORY Monocytes % 9.2 % [facility]ORY Monocyte Abs 0.8 0.3 - 0.9 [facility] x10(3)/[facility] LABORATORY Eosinophils % 1.3 % [facility]ORY Eosinophils Abs 0.1 0.0 - 0.4 [facility] x10(3)/[facility] LABORATORY Basophils % 0.5 % [facility]ORATORY Basophils Abs 0.0 0.0 - 0.1 [facility] x10(3)/[facility] LABORATORY Immature Gran % 0.30 [...] Melisa Gran Abs 0.03 0.00 - 0.04 x10(3)/[facility] MAR Y [facility] Specimen Anatomical Collection Method Collection Time Receive d Time (Source) Location / / Volume Laterality Blood 12/11/2021 4:28 AM 4:37 EDT AM EDT Resulting Agency Comment Spec In Lab Bijan Sun MD HEMATOLOGY ORDERABLES Performing Organization Address City/State/[place] [address] (ABNORMAL) Hemogram (12/11/2021 4:28 AM EDT) Analysis Performed At Patho logist Time Signature WBC 8.8 4.0 - 9.5 [facility] x10(3)/[facility] LABORATORY RBC 4.15 (L) 4.58 - [facility] 5.54 [facility] x10(6)/[facility] LABORATORY Hemoglobin 11.9 (L) 13.7 - [facility] 16.5 g/dL [facility] Hematocrit 36.9 (L) 40.5 - [facility] 48.5 % [facility] MCV 88.9 82.9 - [facility] 93.[address] [facility] MCH 28.7 27.5 - [facility] [facility] MCHC 32.2 32.0 - [facility] 35.7 g/dL [facility] Platelets 211 145 - 357 [facility] x10(3)/[facility] LABORATORY RDWSD 48.3 (H) 36.0 - [facility] 45.0 [facility] LABORATORY RDWCV 14.8 (H) 11.4 - [facility] 13.8 % [facility] MPV 9.6 7.6 - 12.9 [facility] LABORATORY nRBC % Auto 0.0 % [facility] LABORATORY nRBC Abs Auto 0.000 0.000 - [facility] 0.000 [facility] x10(3)/[facility] LABORATORY Specimen Anatomical Collection Method Collection Time Receive d Time (Source) Location / / Volume Laterality Blood 12/11/2021 4:28 AM 2 4:37 EDT AM EDT Resulting Agency Comment Spec In Lab Bijan Sun MD HEMATOLOGY ORDERABLES Performing Organization Address City/[facility]/[place] [address] (ABNORMAL) Prothrombin Time (12/11/2021 4:28 AM EDT) P athologist Signature PT 17.7 (H) 9.4 - 12.5 [facility] LABORATORY INR 1.6 [facility] [...] Cuevas MD HEMATOLOGY ORDERABLES Performing Organization Address City/[facility]/[place] [address] (ABNORMAL) BMP w/fasting Glucose (12/11/2021 4:28 AM EDT) athologist Signature Glucose 207 (H) 65 - 99 [facility] Fasting mg/dL [facility] Comment: ?Fasting* Glucose Interpretive C [...] of Diabetes Mellitus, Position Statement from the [place] [employer]. ??Diabete s Care, Volume 33, Supplement 1, Jul 2009 BUN 49 (H) 10 - 20 mg/dL [facility] Creatinine 1.43 0.80 - 1.50 mg/dL [facility] [...] Cuevas MD CHEMISTRY ORDERABLES Performing Organization Address City/[facility]/ZIP Code Phon e Number [address] Magnesium (12/11/2021 4:28 AM EDT) P athologist Signature Magnesium 1.04 0.69 - 1.07 [facility] mmol/L [facility] Specimen Anatomical Collection Method Collection Time Receive d Time (Source) Location / / Volume Laterality Blood 12/11/2021 4:28 AM 2 4:37 EDT AM EDT Resulting Agency Comment Spec In Lab Iker Cuevas MD CHEMISTRY ORDERABLES Performing Organization Address City/[facility]/[place] [address] POCT Glucose (12/11/2021 3:58 AM EDT) P athologist Signature POC Glucose 189 65 - 199 [facility] mg/dL [facility] Comment: Supplemental ranges: <140 mg/dL before meals <180 mg/dL all other times of the day Specimen Anatomical Collection Method Collection Time Receive d Time (Source) Location / / Volume Laterality Blood 12/11/2021 3:58 AM 2 3:58 EDT AM EDT Iker Cuevas MD POINT OF CARE TEST ORDERABLE S Performing Organization Address City/[facility]/[place] [address] (ABNORMAL) POCT Glucose (12/10/2021 11:45 PM EDT) athologist Signature POC Glucose 205 (H) 65 - 199 [facility] mg/dL [facility] Comment: Supplemental ranges: <140 mg/dL before meals <180 mg/dL all other times of the day Specimen Anatomical Collection Method Collection Time Receive d Time (Source) Location / / Volume Laterality Blood 12/10/2021 11:45 12/10/2021 PM EDT 11:45 PM EDT Iker Cuevas MD POINT OF CARE TEST ORDERABLE S Performing Organization Address City/State/ZIP Code Phon e Number [address] (ABNORMAL) POCT Glucose (12/10/2021 7:54 PM EDT) athologist Signature POC Glucose 225 (H) 65 - 199 [facility] mg/dL [facility] Comment: Supplemental ranges: <140 mg/dL before meals <180 mg/dL all other times of the day Specimen Anatomical Collection Method Collection Time Receive d Time (Source) Location / / Volume Laterality Blood 12/10/2021 7:54 PM 2 7:54 EDT PM EDT Iker Cuevas MD POINT OF CARE TEST ORDERABLE S Performing Organization Address City/State/[place] [address] Potassium (12/10/2021 7:46 PM EDT) athologist Signature Potassium 4.2 3.5 - 5.0 [facility] mmol/L [facility] Comment: Please note: ??Patients with [...] Organization Address City/State/[place] [address] (ABNORMAL) Basic Metabolic Panel (non-fasting) (12/10/2021 6:12 PM EDT) P athologist Signature Glucose Lvl 246 (H) 65 - 199 [facility] mg/dL [facility] Comment: Diabetes: >=200 mg/dL plus symp toms BUN 50 (H) 10 - 20 mg/dL [facility] Creatinine 1.39 0.80 - 1.50 mg/dL [facility] LABORATORY Sodium 138 135 - 145 mmol/L [facility] LABORATORY Potassium Not Perf 3.5 - 5.0 [facility] LAB[facility] Comment: Unable to quantitate due [...] Gap 16 (H) 5 - 15 mmol/L [facility] Calcium 8.3 (L) 8.5 [...] Cuevas MD CHEMISTRY ORDERABLES Performing Organization Address City/[facility]/ZIP Code Phon e Number [address] POCT Glucose (12/10/2021 4:59 PM EDT) athologist Signature POC Glucose 158 65 - 199 [place] mg/dL [facility] Comment: Supplemental ranges: <140 mg/dL before meals <180 mg/dL all other times of the day Specimen Anatomical Collection Method Collection Time Receive d Time (Source) Location / / Volume Laterality Blood 12/10/2021 4:59 PM 2 4:59 EDT PM EDT Iker Cuevas MD POINT OF CARE TEST ORDERABLE S Performing Organization Address City/[facility]/ZIP Code Phon e Number [address] (ABNORMAL) POCT Glucose (12/10/2021 12:43 PM EDT) athologist Signature POC Glucose 241 (H) 65 - 199 [place] mg/dL [facility] Comment: Supplemental ranges: <140 mg/dL before meals <180 mg/dL all other times of the day Specimen Anatomical Collection Method Collection Time Receive d Time (Source) Location / / Volume Laterality Blood 12/10/2021 12:43 12/10/2021 PM EDT 12:43 PM EDT Iker Cuevas MD POINT OF CARE TEST ORDERABLE S Performing Organization Address City/[facility]/[place] [address] EKG 12 Lead (12/10/2021 11:17 AM EDT) Component Value Ref Range Test Analysis Performed Pathologis t Method Time At Signature Ventricular rate 62 BPM MUSE SYSTEM Atrial Rate 62 BPM MUSE SYSTEM P-R Interval 142 ms MUSE SYSTEM QRS Duration 100 ms MUSE SYSTEM Q-T Interval 434 ms MUSE SYSTEM QTC Calculated 440 ms MUSE SYSTEM (Bezet) Calculated P [place] 34 degrees MUSE SYSTEM Calculated R [place] -39 degrees MUSE SYSTEM Calculated T [place] 92 degrees MUSE SYSTEM INTERPRETATION Normal sinus rhythm MUSE SYSTEM Left axis deviation Minimal voltage criteria for LVH, may be normal variant ( Okdak product ) Cannot rule out Inferior infarct [...] SYSTEM - 12/10/2021 12:04 PM E DT ?[facility] ? Cardiac Cathete rization/Intervention Report ? Patient Name: Don Fatima. ? Procedure Date: 12/10/2021 ? A #: [id number] ? Primary Physician: Nobles, Vitaliy P ? Case #: [id number] ? File Name: [id number] ? Catheterization Order Number: [id number] ? [facility] ? Final Report [place], [place] ? Patient Name: ? Don E. Stewa rt ? ID#: ?[id number] ? : ?1945 ? Procedure Date: ? [...] ?designated as ASA Class III. Th e [facility] clinical frailty scale is 5: [...] ?3.75 guiding catheter and a 3.5 Fr [place] 20 Mhz using Manual ?pullback. ??Imaging was [...] ?3.75 guiding catheter and a 3.5 Fr [place] 20 Mhz using Manual ?pullback. ??Imaging was [...] Procedure Note Vitaliy Nobles MD - 01/14/2022 [facility] Cardiac Catheterization/Intervention Re port Patient Name: Don Fatima Procedure Date: 12/10/2021 A #: [id number] Primary Physician: Vitaliy Nobles Case #: [id number] File Name: [id number] Catheterization Order Number: [id number] [facility] Final Report [place], [place] Patient Name: Don Fatima ID#: [...] and a 3.5 Fr [place] 20 Mhz using Manual pullback. Imaging was [...] and a 3.5 Fr [place] 20 Mhz using Manual pullback. Imaging was [...] require modification of this regimen. Consult [facility] Interventional Cardiology for questions. The 1 year [...] e. Case time = 02:07. Dr. Vitaliy Noblse M.D. performed the cor onary angiography, left [...] POC Glucose 262 (H) 65 - 199 [facility] mg/dL [facility] Comment: Supplemental ranges: <140 mg/dL before meals <180 mg/dL all other times of the day Specimen Anatomical Collection Method Collection Time Receive d Time (Source) Location / / Volume Laterality Blood 12/10/2021 10:30 12/10/2021 AM EDT 10:30 AM EDT Iker Cuevas MD POINT OF CARE TEST ORDERABLE S Performing Organization Address City/[facility]/[place] [address] (ABNORMAL) POCT Glucose (12/10/2021 9:48 AM EDT) athologist Signature POC Glucose 279 (H) 65 - 199 [facility] mg/dL [facility] Comment: Supplemental ranges: <140 mg/dL before meals <180 mg/dL all other times of the day Specimen Anatomical Collection Method Collection Time Receive d Time (Source) Location / / Volume Laterality Blood 12/10/2021 9:48 AM 2 9:48 EDT AM EDT Iker Cuevas MD POINT OF CARE TEST ORDERABLE S Performing Organization Address City/[facility]/[place] [address] (ABNORMAL) POCT Glucose (12/10/2021 9:07 AM EDT) athologist Signature POC Glucose 268 (H) 65 - 199 [facility] SU mg/dL [facility] Comment: Supplemental ranges: <140 mg/dL before meals <180 mg/dL all other times of the day Specimen Anatomical Collection Method Collection Time Receive d Time (Source) Location / / Volume Laterality Blood 12/10/2021 9:07 AM 2 9:07 EDT AM EDT Iker Cuevas MD POINT OF CARE TEST ORDERABLE S Performing Organization Address City/State/[place] [address] (ABNORMAL) Point of Care Blood Gas Historical (12/10/2021 9:04 AM EDT) Patholo gist Method Time Signature POC pH 7.40 7.35 - [facility] 7.45 [facility] POC PCO2 40 35 - [address] [facility] [address] [facility] POC PO2 63 (L) 85 - 104 [facility] LABORATORY POC Base Excess 0.0 -3.0 - 3.0 [facility] K mmol/L [facility] POC HCO3 24.8 20.0 - [facility] 26.0 [facility] mmol/[facility] LABORATORY POC Sodium 143 135 - 145 [facility] mmol/L [facility] POC Potassium 3.7 3.5 - 5.0 [facility] mmol/L [facility] POC Ionized Ca 1.07 (L) 1.15 - [facility] 1.33 [facility] POC Hematocrit 30.0 (L) 40.0 - [facility] POC Calc Hgb 10.2 (L) 13.7 - [facility] 17.5 g/dL [facility] Comment: The calculation of hemoglobin f rom hematocrit assumes a normal MCHC. POC Bgas Loc CC LAB [facility] LABORATORY Specimen Anatomical Collection Method Collection Time Receive d Time (Source) Location / / Volume Laterality Blood 12/10/2021 9:04 AM 2 EDT 12:00 PM EDT Ifeanyi Truong MD CHEMISTRY ORDERABLES Performing Organization Address City/State/[place] [address] (ABNORMAL) POCT Glucose (12/10/2021 7:19 AM EDT) P athologist Signature POC Glucose 274 (H) 65 - 199 [facility] mg/dL [facility] Comment: Supplemental ranges: <140 mg/dL before meals <180 mg/dL all other times of the day Specimen Anatomical Collection Method Collection Time Receive d Time (Source) Location / / Volume Laterality Blood 12/10/2021 7:19 AM 2 7:19 EDT AM EDT Iker Cuevas MD POINT OF CARE TEST ORDERABLE S Performing Organization Address City/[facility]/[place] [address] Heparin (unfractionated) Level (12/10/2021 4:25 AM EDT) P athologist Signature Heparin UFH 0.69 IU/mL [facility] LABORATORY Comment: Heparin (anti-Xa) levels should [...] Cuevas MD HEMATOLOGY ORDERABLES Performing Organization Address City/[facility]/[place] [address] (ABNORMAL) Differential, Automated (12/10/2021 4:25 AM EDT) Patholo gist Method Time Signature Neutrophils % 79.8 % [facility] LABORATORY Neutr Abs (ANC) 7.47 (H) 1.70 - [facility] 6.10 [facility] x10(3)/[facility] L LABORATORY Lymphocytes % 10.6 % [facility] LABORATORY Lymphocytes Abs 1.0 0.9 - 3.2 [facility] x10(3)/[facility] LABORATORY Monocytes % 8.4 % [facility] LABORATORY Monocyte Abs 0.8 0.3 - 0.9 [facility] x10(3)/[facility] LABORATORY Eosinophils % 0.6 % [facility] LABORATORY Eosinophils Abs 0.1 0.0 - 0.4 [facility] x10(3)/[facility] LABORATORY Basophils % 0.2 % [facility] LABORATORY Basophils Abs 0.0 0.0 - 0.1 [facility] x10(3)/[facility] LABORATORY Immature Gran % 0.40 [...] Melisa Gran Abs 0.04 0.00 - 0.04 x10(3)/[facility] MAR Y [facility] LABORATORY Specimen Anatomical Collection Method Collection Time Receive d Time (Source) Location / / Volume Laterality Blood 12/10/2021 4:25 AM 4:34 EDT AM EDT Resulting Agency Comment Spec In Lab Morgan BROWN HEMATOLOGY ORDERABLES Performing Organization Address City/State/[place] [address] (ABNORMAL) Hemogram (12/10/2021 4:25 AM EDT) Analysis Performed At Patho logist Time Signature WBC 9.4 4.0 - 9.5 [facility] x10(3)/[facility] LABORATORY RBC 3.81 (L) 4.58 - [facility] 5.54 [facility] x10(6)/[facility] LABORATORY Hemoglobin 11.1 (L) 13.7 - [facility] 16.5 g/dL [facility] Hematocrit 34.0 (L) 40.5 - [facility] % [facility] MCV 89.2 82[facility]9 - [facility] [facility] MCH 29.1 27.5 - [facility] [facility] MCHC 32.6 32.0 - [place] [facility] 35.7 g/dL [facility] Platelets 183 145 - 357 [facility] x10(3)/[facility] LABORATORY RDWSD 49.9 (H) 36.0 - [facility] SU 45.0 [facility] LABORATORY RDWCV 15.2 (H) 11.4 - [facility] 13.8 % [facility] MPV 9.8 7.6 - 12.9 [facility] LABORATORY nRBC % Auto 0.0 % [facility] LABORATORY nRBC Abs Auto 0.000 0.000 - [facility] 0.000 [facility] x10(3)/[facility] LABORATORY Specimen Anatomical Collection Method Collection Time Receive d Time (Source) Location / / Volume Laterality Blood 12/10/2021 4:25 AM 2 4:34 EDT AM EDT Resulting Agency Comment Spec In Lab Morgan BROWN HEMATOLOGY ORDERABLES Performing Organization Address City/[facility]/[place] [address] (ABNORMAL) Prothrombin Time (12/10/2021 4:25 AM EDT) P athologist Signature PT 20.0 (H) 9.4 - 12.5 [facility] LABORATORY INR 1.7 [facility] [...] City/State/ZIP Code Phon [place] [facility] [place] [address] (ABNORMAL) BMP w/fasting Glucose (12/10/2021 4:25 AM EDT) athologist Signature Glucose 210 (H) 65 - 99 [facility] Fasting mg/dL [facility] Comment: ?Fasting* Glucose Interpretive C [...] of Diabetes Mellitus, Position Statement from the [place] [employer]. ??Diabete s Care, Volume 33, Supplement 1, Jul 2009 BUN 54 (H) 10 - 20 mg/dL [facility] LABORATORY Creatinine 1.52 (H) 0.80 - 1.50 mg/dL [facility] 15 mmol/L [facility] LABORATORY Calcium 8.0 (L) 8.5 - [...] Organization Address City/State/[place] [address] Magnesium (12/10/2021 4:25 AM EDT) P athologist Signature Magnesium 0.95 0.69 - 1.07 [facility] mmol/L [facility]ORY Specimen Anatomical Collection Method Collection Time Receive d Time (Source) Location / / Volume Laterality Blood 12/10/2021 4:25 AM 2 4:34 EDT AM EDT Resulting Agency Comment Spec In Lab Iker Cuevas MD CHEMISTRY ORDERABLES Performing Organization Address City/State/[place] [address] POCT Glucose (12/10/2021 1:58 AM EDT) P athologist Signature POC Glucose 164 65 - 199 [facility] mg/dL [facility] Comment: Supplemental ranges: <140 mg/dL before meals <180 mg/dL all other times of the day Specimen Anatomical Collection Method Collection Time Receive d Time (Source) Location / / Volume Laterality Blood 12/10/2021 1:58 AM 2 1:58 EDT AM EDT Iker Cuevas MD POINT OF CARE TEST ORDERABLE S Performing Organization Address City/State/[place] [address] (ABNORMAL) POCT Glucose (12/09/2021 9:02 PM EDT) athologist Signature POC Glucose 313 (H) 65 - 199 [facility] mg/dL [facility] Comment: Supplemental ranges: <140 mg/dL before meals <180 mg/dL all other times of the day Specimen Anatomical Collection Method Collection Time Receive d Time (Source) Location / / Volume Laterality Blood 12/09/2021 9:02 PM 2 9:02 EDT PM EDT Iker Cuevas MD POINT OF CARE TEST ORDERABLE S Performing Organization Address City/[facility]/[place] [address] Heparin (unfractionated) Level (12/09/2021 7:30 PM EDT) athologist Signature Heparin UFH 0.48 IU/mL [facility] LABORATORY Comment: Heparin (anti-Xa) levels should [...] Organization Address City/State/[place] [address] (ABNORMAL) Basic Metabolic Panel (non-fasting) (12/09/2021 7:30 PM EDT) athologist Signature Glucose Lvl 372 (H) 65 - 199 [facility] mg/dL [facility] LABORATORY Comment: Diabetes: >=200 mg/dL plus symp toms BUN 56 (H) 10 - 20 mg/dL [facility] LABORATORY Creatinine 1.75 (H) 0.80 - 1.50 mg/dL [facility] Cuevas MD CHEMISTRY ORDERABLES Performing Organization Address City/[facility]/ZIP Code Phon e Number [address] (ABNORMAL) POCT Glucose (12/09/2021 6:34 PM EDT) P athologist Signature POC Glucose 408 (H) 65 - 199 [place] [facility] mg/dL [facility] LABORATORY Comment: Supplemental ranges: <140 mg/dL before meals <180 mg/dL all other times of the day Specimen Anatomical Collection Method Collection Time Receive d Time (Source) Location / / Volume Laterality Blood 12/09/2021 6:34 PM 2 6:34 EDT PM EDT Iker Cuevas MD POINT OF CARE TEST ORDERABLE S Performing Organization Address City/[facility]/[place] [address] (ABNORMAL) POCT Glucose (12/09/2021 6:32 PM EDT) P athologist Signature POC Glucose 356 (H) 65 - 199 [facility] mg/dL [facility] Comment: Supplemental ranges: <140 mg/dL before meals <180 mg/dL all other times of the day Specimen Anatomical Collection Method Collection Time Receive d Time (Source) Location / / Volume Laterality Blood 12/09/2021 6:32 PM 2 6:32 EDT PM EDT Iker Cuevas MD POINT OF CARE TEST ORDERABLE S Performing Organization Address City/[facility]/[place] [address] (ABNORMAL) POCT Glucose (12/09/2021 4:19 PM EDT) P athologist Signature POC Glucose 347 (H) 65 - 199 [place] [facility] mg/dL [facility] LABORATORY Comment: Supplemental ranges: <140 mg/dL before meals <180 mg/dL all other times of the day Specimen Anatomical Collection Method Collection Time Receive d Time (Source) Location / / Volume Laterality Blood 12/09/2021 4:19 PM 2 4:19 EDT PM EDT Iker Cuevas MD POINT OF CARE TEST ORDERABLE S Performing Organization Address City/[facility]/ZIP Code Phon e Number [place] [id number] Heparin (unfractionated) Level (12/09/2021 1:29 PM EDT) athologist Signature Heparin UFH 0.42 IU/mL [facility] LABORATORY Comment: Heparin (anti-Xa) levels should be deter mined in a plasma sample that has been drawn 6 hours after a dose change to gear roximate steady-state for continuous heparin infusions. Indication [...] Cuevas MD HEMATOLOGY ORDERABLES Performing Organization Address City/[facility]/[place] [address] (ABNORMAL) POCT Glucose (12/09/2021 12:02 PM EDT) athologist Signature POC Glucose 235 (H) 65 - 199 [facility] mg/dL [facility] LABORATORY Comment: Supplemental ranges: <140 mg/dL before meals <180 mg/dL all other times of the day Specimen Anatomical Collection Method Collection Time Receive d Time (Source) Location / / Volume Laterality Blood 12/09/2021 12:02 12/09/2021 PM EDT 12:02 PM EDT Iker Cuevas MD POINT OF CARE TEST ORDERABLE S Performing Organization Address City/[facility]/[place] [address] (ABNORMAL) POCT Glucose (12/09/2021 9:44 AM EDT) athologist Signature POC Glucose 214 (H) 65 - 199 [facility] mg/dL [facility] LAB[facility]ORY Comment: Supplemental ranges: <140 mg/dL before meals <180 mg/dL all other times of the day Specimen Anatomical Collection Method Collection Time Receive d Time (Source) Location / / Volume Laterality Blood 12/09/2021 9:44 AM 9:44 EDT AM EDT Iker Cuevas MD POINT OF CARE TEST ORDERABLE S Performing Organization Address [facility]/[place] [address] EKG 12 Lead (12/09/2021 7:57 AM EDT) Component Value Ref Range Test Analysis Performed Pathologis t Method Time At Signature Ventricular rate 101 BPM MUSE SYSTEM Atrial Rate 101 BPM MUSE SYSTEM P-R Interval 150 ms MUSE SYSTEM QRS Duration 112 ms MUSE SYSTEM Q-T Interval 364 ms MUSE SYSTEM QTC Calculated 471 ms MUSE SYSTEM (Bezet) Calculated P [place] 59 degrees MUSE SYSTEM Calculated R [place] -42 degrees MUSE SYSTEM Calculated T [place] 102 degrees MUSE SYSTEM INTERPRETATION Sinus tachycardia Occasional Premature ventricular com plexes MUSE SYSTEM Left axis deviation 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) Abnormal ECG When compared with ECG of 08-DEC-2021 16:40, Premature ventricular complexes are now Present Confirmed by MD Fernandez Danette ([id number]) on 12/10/2021 4:55:06 PM Specimen Anatomical Collection Method Collection Time Receive d Time (Source) Location / / Volume Laterality 12/09/2021 7:57 AM 4:55 EDT PM EDT Iker Cuevas MD ECG ORDERABLES Performing Organization Address City/[facility]/ZIP Code Phon e Number MUSE SYSTEM (ABNORMAL) POCT Glucose (12/09/2021 7:28 AM EDT) P athologist Signature POC Glucose 263 (H) 65 - 199 [facility] mg/dL [facility] Comment: Supplemental ranges: <140 mg/dL before meals <180 mg/dL all other times of the day Specimen Anatomical Collection Method Collection Time Receive d Time (Source) Location / / Volume Laterality Blood 12/09/2021 7:28 AM 2 7:28 EDT AM EDT Iker Cuevas MD POINT OF CARE TEST ORDERABLE S Performing Organization Address City/State/[place] [address] (ABNORMAL) Hemoglobin A1c (12/09/2021 6:18 AM EDT) Analysis Performed At Patho logist Time Signature Hemoglobin A1C 7.4 (H) 4.3 - 5.6 [facility] [...] [id number] Est Avg Gluc See note mg/dL [facility] LABORATORY Comment: Estimated Average Glucose [...] with hemoglobinopathies. Additional resources are available on [facility] website. Macario HAMMOND, Ruthann J, Deysi R, et al. ??Tr anslating the A1C assay into estimated average glucose values. ??Diabetes Care 2008:31(8):6439-6095. Specimen Anatomical Collection Method Collection Time Receive d Time (Source) Location / / Volume Laterality Blood Venous Draw / 12/09/2021 6:18 AM 12/10/19 22 Unknown EDT 12:24 PM EDT Resulting Agency Comment Spec In Lab Migdalia BROWN CHEMISTRY ORDERABLES Performing Organization Address [facility] [place] [address] (ABNORMAL) Prothrombin Time (12/09/2021 6:18 AM EDT) P athologist Signature PT 26.6 (H) 9.4 - 12.5 [facility] LABORATORY INR 2.3 [facility] [...] Migdalia BROWN HEMATOLOGY ORDERABLES Performing Organization Address [facility] [place] [address] Heparin (unfractionated) Level (12/09/2021 6:18 AM EDT) P athologist Signature Heparin UFH 0.24 IU/mL [facility] LABORATORY Comment: Heparin (anti-Xa) levels should [...] Organization Address City/State/[place] [address] (ABNORMAL) Differential, Automated (12/09/2021 6:18 AM EDT) Patholo gist Method Time Signature Neutrophils % 91.5 % [facility] LABORATORY Neutr Abs (ANC) 15.78 (H) 1.70 - [facility] 6.10 [facility] x10(3)/[facility] L LABORATORY Lymphocytes % 2.9 % [facility] LABORATORY Lymphocytes Abs 0.5 (L) 0.9 - 3.2 [facility] x10(3)/[facility] LABORATORY Monocytes % 4.9 % [facility] LABORATORY Monocyte Abs 0.8 0.3 - 0.9 [facility] x10(3)/[facility] LABORATORY Eosinophils % 0.0 % [facility] LABORATORY Eosinophils Abs 0.0 0.0 - 0.4 [facility] x10(3)/[facility] LABORATORY Basophils % 0.2 % [facility] LABORATORY Basophils Abs 0.0 0.0 - 0.1 [facility] x10(3)/[facility] LABORATORY Immature Gran % 0.50 [...] Abs 0.09 (H) 0.00 - 0.04 x10(3)/[facility] LABORATORY Specimen Anatomical Collection Method Collection Time Receive d Time (Source) Location / / Volume Laterality Blood 12/09/2021 6:18 AM 6:33 EDT AM EDT Resulting Agency Comment Spec In Lab Morgan BROWN HEMATOLOGY ORDERABLES Performing Organization Address City/State/[place] [address] (ABNORMAL) Hemogram (12/09/2021 6:18 AM EDT) Analysis Performed At Patho logist Time Signature WBC 17.2 (H) 4.0 - 9.5 [facility] x10(3)/[facility] LABORATORY RBC 4.32 (L) 4.58 - [facility] 5.54 [facility] x10(6)/[facility] LABORATORY Hemoglobin 12.6 (L) 13.7 - [facility] 16.5 g/dL [facility] LAB[facility]ATORY Hematocrit 38.9 (L) 40.5 - [facility] 48.5 % [facility] MCV 90.0 82.9 - [facility] 93.1 [facility] LABORATORY MCH 29.2 27.5 - [facility] 32.[address] [facility] LABORATORY MCHC 32.4 32.0 - [facility] 35.7 g/dL [facility] LAB[facility]ORY Platelets 193 145 - 357 [facility] x10(3)/[facility] LABORATORY RDWSD 50.4 (H) 36.0 - [facility] SU 45.0 [facility] LABORATORY RDWCV 15.2 (H) 11.4 - [facility] 13.8 % [facility] LABORATORY MPV 9.5 7.6 - 12.9 [facility] LABORATORY nRBC % Auto 0.0 % [facility] LABORATORY nRBC Abs Auto 0.000 0.000 - [facility] x10(3)/[facility] LABORATORY Specimen Anatomical Collection Method Collection Time Receive d Time (Source) Location / / Volume Laterality Blood 12/09/2021 6:18 AM 6:33 EDT AM EDT Resulting Agency Comment Spec In Lab Morgan BROWN HEMATOLOGY ORDERABLES Performing Organization Address City/State/[place] [address] Lipid Panel (Reflex Direct LDL) (12/09/2021 6:18 AM EDT) P athologist Signature Chol, Total 105 mg/dL [facility] LABORATORY Comment: Lower Risk: <200 mg/dL Average Risk: 200-239 mg/dL Higher Risk: >qq=136 mg/dL Triglycerides 133 mg/dL [facility] LABORATORY Comment: Average Risk/Lower Risk: <150 mg/dL Borderline High Risk: 150-199 mg/dL High Risk: 200-499 mg/dL Very High Risk: >ue=176 mg/dL HDL 42 mg/dL [facility] LABORATORY Comment: Males: ?? Higher Risk: <40 mg/dL Females: ?? Higher Risk: <50 mg/dL LDL Cholesterol 36 mg/dL [facility] LABORATORY Comment: Lowest Risk: <100 mg/dL Lower Risk: 100-129 mg/dL Borderline High Risk: 130-159 mg/dL High Risk: 160-189 mg/dL Very High Risk: >jr=625 mg/dL Chol/HDL Ratio 2.5 ratio [facility] LABORATORY Lipid Interpretation See Note [facility] LABORATORY Comment: Lipid management should be guided by a p atient? s ASCVD risk, goals and preferences. ACC/AHA Guidelines recommend high intens ity statin if clinical ASCVD or LDL greater than or equal to 190 mg/dL. http://tinyurl.com/AGT-EAP-Eyikkwkxk Adults aged 40-75 with LDL 70-189 mg/dL should have their 10 year ASCVD risk estimated with the ACC/AHA ASCVD risk es timator http://tools.acc.org/VEFEF-Cmcp-Bfautowo r/ Statin should be discussed if risk [...] Cuevas MD CHEMISTRY ORDERABLES Performing Organization Address City/[facility] [place] [address] TSH (12/09/2021 6:18 AM EDT) athologist Signature TSH 1.60 0.27 - 4.20 [facility] mcIU/mL [facility] LABORATORY Comment: Reference Interval (mcIU/mL): Females: ??First Trimester: 0.23-3.88 ??Second Trimester: 0.22-3.90 ??Third Trimester: 0.44-4.66 Specimen Anatomical Collection Method Collection Time Receive d Time (Source) Location / / Volume Laterality Blood 12/09/2021 6:18 AM 2 6:33 EDT AM EDT Resulting Agency Comment Spec In Lab Iker Cuevas MD CHEMISTRY ORDERABLES Performing Organization Address City/[facility] [place] [address] Hepatic Function Panel (12/09/2021 6:18 AM EDT) P athologist Signature Total Protein 7.3 6.1 - 8.0 [facility] g/dL [facility] LABORATORY Albumin 4.2 3.2 - 5.2 [place] [facility] g/dL [facility] LAB[facility] AST 25 0 - 39 [facility] SU unit/L [facility] ALT 15 0 - 55 [facility] unit/L [facility] Alk Phos 75 40 - 130 [facility]/L [facility] Total 1.1 0.2 - 1.3 [facility] Bilirubin mg/dL [facility] Bili, Direct 0.2 0.0 - 0.3 [facility] mg/dL [facility] LAB[facility]ORY Specimen Anatomical Collection Method Collection Time Receive d Time (Source) Location / / Volume Laterality Blood 12/09/2021 6:18 AM 6:33 EDT AM EDT Resulting Agency Comment Spec In Lab Iker Cuevas MD CHEMISTRY ORDERABLES Performing Organization Address City/State/[place] [address] (ABNORMAL) BMP w/fasting Glucose (12/09/2021 6:18 AM EDT) P athologist Signature Glucose 235 (H) 65 - 99 [facility] Fasting mg/dL [facility] LABORATORY Comment: ?Fasting* Glucose Interpretive C [...] of Diabetes Mellitus, Position Statement from the [place] [employer]. ??Diabete s Care, Volume 33, Supplement 1, Jul 2009 BUN 49 (H) 10 - 20 mg/dL [facility] LABORATORY Creatinine 1.33 0.80 - [...] Gap 17 (H) 5 - 15 mmol/L [facility] LABORATORY Calcium 8.8 8.5 - [...] Organization Address City/State/[place] [address] Magnesium (12/09/2021 6:18 AM EDT) athologist Signature Magnesium 0.81 0.69 - 1.07 [facility] mmol/L [facility] LABOR[facility]ORY Specimen Anatomical Collection Method Collection Time Receive d Time (Source) Location / / Volume Laterality Blood 12/09/2021 6:18 AM 2 6:33 EDT AM EDT Resulting Agency Comment Spec In Lab Iker Cuevas MD CHEMISTRY ORDERABLES Performing Organization Address City/[facility]/[place] [address] (ABNORMAL) Troponin (12/09/2021 6:18 AM EDT) athologist Signature Troponin-T 1.13 (H) 0.00 - [facility] 0.00 ng/mL [facility] LAB[facility] Comment: The 99th percentile for [...] additional sample may be indicated. Reference: Third [place] Definition of Myocardial Infarction. Journal of the [place] [employer] 2012;60:1581-98 Specimen Anatomical Collection Method Collection Time Receive d Time (Source) Location / / Volume Laterality Blood 12/09/2021 6:18 AM 2 6:33 EDT AM EDT Resulting Agency Comment Spec In Lab Iker Cuevas MD CHEMISTRY ORDERABLES Performing Organization Address City/[facility]/[place] [address] XR Chest One View [...] have questions please contact the health care management coordinator that requested your imaging first. ? [...] have questions please contact the health care management coordinator that requested your imaging first. Amber Sanches MD IMG DX ORDERABLES (ABNORMAL) BLOOD GAS 2 ARTERIAL (12/09/2021 5:14 AM EDT) Analysis Performed At Patho logist Time Signature pH Art 7.43 7.35 - [facility] 7.45 [facility] pCO2 Art 36 35 - [address] [facility] [address] [facility] pO2 Art 67 (L) 85 - [address] [facility] [address] [facility] HCO3 Art 23.4 20.0 - [facility] 26.0 [facility] mmol/L [facility] LABORATORY BE Art -0.9 -3.0 - 3.0 [facility] mmol/L [facility] Hgb Blood Gas 13.2 (L) 13.7 - [facility] 16.5 g/dL [facility] O2HB Art 91.3 (L) 94.0 - [facility] 97.0 % [facility] COHB Art 0.4 % [facility] Whole Blood 104 98 - 107 mmol/L [facility] LABORATORY Gluc Whole Bld 223 (H) 65 - 199 mg/dL [facility] LABORATORY Comment: Diabetes: >=200 mg/dL plus symp toms. Lactate WB 2.7 (H) 0.5 - 2.2 mmol/L [facility] LABORATORY FIO2 Art 35 % [facility] LABORAT[facility] Flow Art 8.0 LPM [facility] LABORAT[facility] PF Ratio Art 191 [facility] LABORATORY Specimen Anatomical Collection Method Collection Time Receive d Time (Source) Location / / Volume Laterality Blood 12/09/2021 5:14 AM 2 5:14 EDT AM EDT Iker Cuevas MD CHEMISTRY ORDERABLES Performing Organization Address City/[facility]/ZIP Code Phon e Number [address] POCT Glucose (12/09/2021 4:46 AM EDT) athologist Signature POC Glucose 198 65 - 199 [facility] mg[facility]dL [facility] Comment: Supplemental ranges: <140 mg/dL before meals <180 mg/dL all other times of the day Specimen Anatomical Collection Method Collection Time Receive d Time (Source) Location / / Volume Laterality Blood 12/09/2021 4:46 AM 2 4:46 EDT AM EDT Iker Cuevas MD POINT OF CARE TEST ORDERABLE S Performing Organization Address City/[facility]/[place] [address] (ABNORMAL) POCT Glucose (12/09/2021 3:01 AM EDT) P athologist Signature POC Glucose 225 (H) 65 - 199 [place] [facility] mg/dL [facility] Comment: Supplemental ranges: <140 mg/dL before meals <180 mg/dL all other times of the day Specimen Anatomical Collection Method Collection Time Receive d Time (Source) Location / / Volume Laterality Blood 12/09/2021 3:01 AM 3:01 EDT AM EDT Iker Cuevas MD POINT OF CARE TEST ORDERABLE S Performing Organization Address City/State/[place] [address] (ABNORMAL) POCT Glucose (12/08/2021 10:55 PM EDT) athologist Signature POC Glucose 327 (H) 65 - 199 [facility] mg/dL [facility] Comment: Supplemental ranges: <140 mg/dL before meals <180 mg/dL all other times of the day Specimen Anatomical Collection Method Collection Time Receive d Time (Source) Location / / Volume Laterality Blood 12/08/2021 10:55 12/08/2021 PM EDT 10:55 PM EDT Iker Cuevas MD POINT OF CARE TEST ORDERABLE S Performing Organization Address City/State/[place] [address] Heparin (unfractionated) Level (12/08/2021 10:03 PM EDT) athologist Signature Heparin UFH 0.18 IU/mL [facility] LABORATORY Comment: Heparin (anti-Xa) levels should [...] Organization Address City/State/[place] [address] (ABNORMAL) Troponin (12/08/2021 10:03 PM EDT) athologist Signature Troponin-T 0.92 (H) 0.00 - [facility] [facility] 0.00 ng/mL [facility] Comment: The 99th percentile for [...] additional sample may be indicated. Reference: Third [place] Definition of Myocardial Infarction. Journal of the [place] [employer] 2012;60:1581-98 Specimen Anatomical Collection Method Collection Time Receive d Time (Source) Location / / Volume Laterality Blood 12/08/2021 10:03 12/08/2021 PM EDT 10:31 PM EDT Resulting Agency Comment Spec In Lab Iker Cuevas MD CHEMISTRY ORDERABLES Performing Organization Address City/[facility]/[place] [address] (ABNORMAL) POCT Glucose (12/08/2021 8:22 PM EDT) athologist Signature POC Glucose 429 (H) 65 - 199 [facility] mg/dL [facility] Comment: Supplemental ranges: <140 mg/dL before meals <180 mg/dL all other times of the day Specimen Anatomical Collection Method Collection Time Receive d Time (Source) Location / / Volume Laterality Blood 12/08/2021 8:22 PM 2 8:22 EDT PM EDT Iker Cuevas MD POINT OF CARE TEST ORDERABLE S Performing Organization Address City/[facility]/[place] [address] (ABNORMAL) POCT Glucose (12/08/2021 7:06 PM EDT) athologist Signature POC Glucose 442 (H) 65 - 199 [facility] mg/dL [facility] Comment: Supplemental ranges: <140 mg/dL before meals <180 mg/dL all other times of the day Specimen Anatomical Collection Method Collection Time Receive d Time (Source) Location / / Volume Laterality Blood 12/08/2021 7:06 PM 2 7:06 EDT PM EDT Iker Cuevas MD POINT OF CARE TEST ORDERABLE S Performing Organization Address City/[facility]/[place] [address] Magnesium (12/08/2021 6:02 PM EDT) athologist Signature Magnesium 0.86 0.69 - 1.07 [facility] mmol/L [facility] Specimen Anatomical Collection Method Collection Time Receive d Time (Source) Location / / Volume Laterality Blood 12/08/2021 6:02 PM 2 6:36 EDT PM EDT Resulting Agency Comment Spec In Lab Iker Cuevas MD CHEMISTRY ORDERABLES Performing Organization Address City/[facility]/[place] [address] (ABNORMAL) Basic Metabolic Panel (non-fasting) (12/08/2021 6:02 PM EDT) P athologist Signature Glucose Lvl 392 (H) 65 - 199 [facility] mg/dL [facility] Comment: Diabetes: >=200 mg/dL plus symp toms BUN 41 (H) 10 - 20 mg/dL [facility] LABORATORY Creatinine 1.44 0.80 - 1.50 mg/dL [facility] [...] Gap 16 (H) 5 - 15 mmol/L [facility] [...] City/State/ZIP Code Phon e Number [place] [id number]OS[address] LAB[address]ORY Drive (ABNORMAL) Differential, Automated (12/08/2021 6:02 PM EDT) [facility] Method Time Signature Neutrophils % 89.5 % [facility] LABORATORY Neutr Abs (ANC) 13.97 (H) 1.70 - [facility] 6.10 [facility] x10(3)/[facility] L LABORATORY Lymphocytes % 3.7 % [facility] LABORATORY Lymphocytes Abs 0.6 (L) 0.9 - 3.2 [facility] x10(3)/[facility] LABORATORY Monocytes % 6.1 % [facility] LABORATORY Monocyte Abs 1.0 (H) 0.3 - 0.9 [facility] x10(3)/[facility] LABORATORY Eosinophils % 0.0 % [facility] LABORATORY Eosinophils Abs 0.0 0.0 - 0.4 [facility] x10(3)/[facility] LABORATORY Basophils % 0.2 % [facility] LABORATORY Basophils Abs 0.0 0.0 - 0.1 [facility] x10(3)/[facility] LABORATORY Immature Gran % 0.50 [...] Abs 0.08 (H) 0.00 - 0.04 x10(3)/[facility] LABORATORY Specimen Anatomical Collection Method Collection Time Receive d Time (Source) Location / / Volume Laterality Blood 12/08/2021 6:02 PM 6:36 EDT PM EDT Resulting Agency Comment Spec In Lab Morgan BROWN HEMATOLOGY ORDERABLES Performing Organization Address City/State/[place] [address] (ABNORMAL) Hemogram (12/08/2021 6:02 PM EDT) Analysis Performed At Patho logist Time Signature WBC 15.6 (H) 4.0 - 9.5 [facility] [facility] LABORATORY RBC 4.05 (L) 4.58 - [facility] 5.54 [facility] x10(6)/[facility] LABORATORY Hemoglobin 11.8 (L) 13.7 - [facility] 16.5 g/dL [facility] Hematocrit 35.8 (L) 40.5 - [facility] 48.5 % [facility] MCV 88.4 82.9 - [facility] 93.1 [facility] LABORATORY MCH 29.1 27.5 - [facility] 32.[address] [facility] MCHC 33.0 32.0 - [facility] 35.7 g/dL [facility] Platelets 178 145 - 357 [facility] x10(3)/[facility] LABORATORY RDWSD 49.3 (H) 36.0 - [facility] 45.0 [facility] LABORATORY RDWCV 15.1 (H) 11.4 - [facility] 13.8 % [facility] MPV 10.4 7.6 - 12.9 [facility] LABORATORY nRBC % Auto 0.0 % [facility] LABORATORY nRBC Abs Auto 0.000 0.000 - [place] SU 0.000 [facility] x10(3)/[facility] LABORATORY Specimen Anatomical Collection Method Collection Time Receive d Time (Source) Location / / Volume Laterality Blood 12/08/2021 6:02 PM 2 6:36 EDT PM EDT Resulting Agency Comment Spec In Lab Morgan BROWN HEMATOLOGY ORDERABLES Performing Organization Address City/State/[place] [address] (ABNORMAL) Troponin (12/08/2021 6:02 PM EDT) P athologist Signature Troponin-T 0.89 (H) 0.00 - [place] SU 0.00 ng/mL [facility] Comment: The 99th percentile for [...] additional sample may be indicated. Reference: Third [place] Definition of Myocardial Infarction. Journal of the [place] [employer] 2012;60:1581-98 Specimen Anatomical Collection Method Collection Time Receive d Time (Source) Location / / Volume Laterality Blood 12/08/2021 6:02 PM 6:36 EDT PM EDT Resulting Agency Comment Spec In Lab Iker Cuevas MD CHEMISTRY ORDERABLES Performing Organization Address City/State/[place] [address] COVID-19 PCR (12/08/2021 5:00 PM EDT) [facility] Method Time Signature SARS-CoV-2 Not Detected Not Detected [place] RNA PCR [facility] LABORAT[facility] Comment: This result should be [...] of CO VID-19 is performed using the X[employer]ex[employer] COVID-19 Direct Assay by [employer] Alan marcum as authorized by the FDA [...] Department of Pathology and Laboratory Medicine at [facility], certified under the Clinical Laboratory Improvement [...] fact sheets at the following FDA website: https://www.fda.gov/medical-devices/qtefeurefrp-pbtwpsp-8415-vinrb-08-lpjsfqwgl- wxg-xoyidkfcydsqxc-hzsfmia-devices/tponp-xvmsbcthfey-ypuh SARS-CoV-2 Source PHYSICIAN PRACTICE ADMINISTRATOR Swab [facility] LABORATORY Specimen (Source) Anatomical Collection Method Collection Time Re ceived Time Location / / Volume Laterality Nasopharyngeal Swab 12/08/2021 5:00 12/08 PM EDT 6:03 PM EDT Comment: Symptoms->Surveillance Resulting Agency Comment Spec In Lab Iker Cuevas MD MICROBIOLOGY - GENERAL ORDER [place] Performing Organization Address City/[facility]/ZIP Code Phon e Number [place] [phone] HOSP[address] EKG 12 Lead (12/08/2021 4:40 PM EDT) Component Value Ref Range Test Analysis Performed Pathologis t Method Time At Signature Ventricular rate 78 BPM MUSE SYSTEM Atrial Rate 78 BPM MUSE SYSTEM P-R Interval 152 ms MUSE SYSTEM QRS Duration 96 ms MUSE SYSTEM Q-T Interval 396 ms MUSE SYSTEM QTC Calculated 451 ms MUSE SYSTEM (Bezet) Calculated P [place] 44 degrees MUSE SYSTEM Calculated R [place] -31 degrees MUSE SYSTEM Calculated T [place] 124 degrees MUSE SYSTEM INTERPRETATION Normal sinus [...] Cuevas MD ECG ORDERABLES Performing Organization Address [facility]/ZIP Code Phon e Number MUSE SYSTEM (ABNORMAL) POCT Glucose (12/08/2021 4:34 PM EDT) P athologist Signature POC Glucose 400 (H) 65 - 199 [facility] mg/dL [facility] Comment: Supplemental ranges: <140 mg/dL before meals <180 mg/dL all other times of the day Specimen Anatomical Collection Method Collection Time Receive d Time (Source) Location / / Volume Laterality Blood 12/08/2021 4:34 PM 2 4:34 EDT PM EDT Iker Cuevas MD POINT OF CARE TEST ORDERABLE S Performing Organization Address City/[facility]/[place] [address] documented in this encounter [...] vessel, [employer] or graft Cardiomyopathy, ischemic Other specified forms [...] MEALS, First dose (after last modification) on [facility] 12/11/21 at 1730, Until Discontinued, [employer]ATED [...] acetaminophen (Tylenol) tablet 650 mg 0805 ([facility] Hold - Provider: Admin Adt - Reason: Transfer to a Procedural area)1230 ([facility] Unhold - Provider: Admin Adt) [...] bisacodyL (Dulcolax) suppository 10 mg 0805 ([facility] Hold - Provider: Admin Adt - Reason: Transfer to a Procedural area)1230 ([facility] Unhold - Provider: Admin Adt) 10 mg, Rectal, DAILY PRN, Starting on Tu e 12/09/21 at 1629, Until Wed12/12/21 at 1312, Constipation, Routine dextrose 10% infusion(Linked Group 2) 0805 ([facility] Hold - Provider: Admin Adt - Reason: Transfer to a Procedural area)1230 ([facility] Unhold - Provider: Admin Adt) [...] (Intra-Procedure), Routine niCARdipine (Cardene) (100 mcg/mL) dilution (RAFTSMAN) (CANCELED) 1030 (Given - Provider: Vitaliy Nobles [...] episode. & nbsp; For persistent hypoglycemia, con roof bolter helper longer-acting treatment for the duration of the [...]
Routine documented in this encounter Care Teams Manager Completions Relationship Specialty Start Date End Date Lovely Vicente MD PCP - General 04/16/[address] [place] [address] [address] [facility] [place] [address] documented as of this encounter
--- OUTSIDE RECORDS SUMMARY | 2022-02-20 08:09 | XMS_ITS | Encounter Summary ---
:1945 Author Organization [facility] [place] [address] Care Team Providers Name Role Phone Lovely Vicente MD Primary Care Provider Encounter Details Date Type Department Care Team Description 12/15/2021 Telephone Cardiology at [facility] Barbara Mera, [place] [address] Social History Tobacco Use Types Packs/Day [...] Nobles MD [facility] MEDICAL [facility] ER CARDIOLOGY [place], [place] [address] (Wo rk) documented as of this encounter Visit Diagnoses Not on filedocumented in this encounter Care Teams Coffee Taster Relationship Specialty Start Date End Date Lovely Vicente MD PCP - General 04/16/[address] [place] [address] documented as of this encounter
--- OUTSIDE RECORDS SUMMARY | 2022-02-20 08:09 | XMS_ITS | Encounter Summary ---
:1945 Author Organization [facility] [place] [address] Care Team Providers Name Role Phone Lovely Vicente MD Primary Care Provider Reason for Visit Reason Onset Date Comments Advice Only 01/28/2022 Encounter Details Date Type Department Care Team Description 01/28/2022 Telephone Cardiology at [facility] Chitra Angela, casting machine set [place] [address] Social History Tobacco Use Types Packs/Day [...] Fatima assists patient with medications. Number for laboratory aide scheduling given and she will call them to verify this information Meds reviewed. As per our form from laboratory aide Eliquis hold for 48 hours prior. Pt [...] Cardiology Vitaliy Nobles MD [facility] ER CARDIOLOGY [place], [place] [address] (Wo rk) documented as of this encounter Visit Diagnoses Not on filedocumented in this encounter Care Teams Strap Sewer Relationship Specialty Start Date End Date Lovely Vicente MD PCP - General 04/16/[address] [place] [address] documented as of this encounter
--- OUTSIDE RECORDS SUMMARY | 2022-02-20 08:10 | XMS_ITS | Encounter Summary ---
:1945 Author Organization [facility] [place] [address] Care Team Providers Name Role Phone Lovely Vicente MD Primary Care Provider Encounter Details Date Type Department Care Team Description 03/20/2021 Ancillary Procedure Radiology Library [place] [address] [place] [address] [phone] Social History Tobacco Use Types Packs/Day Years [...] Vitaliy Nobles MD [facility] CARDIOLOGY [place], [place] [address] (Wo rk) documented as of [...] Address City/State/ZIP Code Phon e Number RAD [place], [place] documented in this encounter Visit Diagnoses Not on filedocumented in this encounter Care Teams Eyeglass Frames Inspector Relationship Specialty Start Date End Date Lovely Vicente MD PCP - General 04/16/[address] [place] [address] documented as of this encounter
--- OUTSIDE RECORDS SUMMARY | 2022-02-20 08:10 | XMS_ITS | Encounter Summary ---
:1945 Author Organization [facility] [address] Care Team Providers Name Role Phone Lovely Vicente MD Primary Care Provider Encounter Details Date Type Department Care Team Description 07/28/2019 Laboratory Appointment Lab 3L [facility] systolic [facility] [place] [phone] Social History Tobacco Use Types Packs/Day Years [...] MD [facility] ER CARDIOLOGY [place], [place] [address] (Wo rk) documented as of [...] athologist Signature ProBNP 647 (H) <=125 pg/mL [facility] LABORAT[facility] Specimen Anatomical Collection Method Collection Time Receive d Time (Source) Location / / Volume Laterality Blood specimen 07/28/2019 8:36 AM 020 8:46 (specimen) EST AM EST Resulting Agency Comment Spec In Lab Danette A Hans STACIE CHEMISTRY ORDERABLES Performing Organization Address City/State/Z[place] [address] (ABNORMAL) Basic Metabolic Panel (non-fasting) (07/28/2019 8:36 AM EST) athologist Signature Glucose Lvl 153 65 - 199 [facility] mg/dL [facility] LABORATORY Comment: Diabetes: >=200 mg/dL plus symp toms BUN 22 (H) 10 - 20 mg/dL [facility] LABORATORY Creatinine 1.05 0.80 - 1.50 mg/dL [facility] LABORATORY [...] 107 mmol/L [facility] CO2 29 22 - 31 mmol/L [facility] Anion Gap 12 5 - 15 mmol/L [facility] LABORATORY Calcium 9.3 8.5 - 10.5 mg/dL [facility] LABOR[facility] Estimated GFR 70 >=60 mL/min/1.73 m?? [facility] Comment: The eGFR was calculated using the CKD-EP I equation. As with all creatinine based estimates of kidney function, eGFR values calculated with the CKD-EPI equation are not accurate in patients wi th acute kidney failure, extremes of body mass or the acutely ill. http://AXON [employer]inel/DHMCnkf eGFR 81 >=60 mL/min/1.73 m?? [facility] Comment: The eGFR was calculated using the CKD-EP I equation. As with all creatinine based estimates of kidney function, eGFR values calculated with the CKD-EPI equation are not accurate in patients wi th acute kidney failure, extremes of body mass or the acutely ill. http://AX[employer]/DHnkf Specimen Anatomical Collection Method Collection Time Receive d Time (Source) Location / / Volume Laterality Blood specimen 07/28/2019 8:36 AM 020 8:46 (specimen) EST AM EST Resulting Agency Comment Spec In Lab Danette Maxwell APRN CHEMISTRY ORDERABLES Performing Organization Address City/State/Z[place] [address] documented in this encounter Visit Diagnoses Diagnosis Chronic systolic heart failure documented in this encounter Care Teams Personal Lines Sales Executive Relationship Specialty Start Date End Date Lovely Vicente MD PCP - General 04/16/[address] [place] [address] documented as of this encounter
--- OUTSIDE RECORDS SUMMARY | 2022-02-20 08:10 | XMS_ITS | Encounter Summary ---
:1945 Author Organization [facility] Address [address] [place] [address] Care Team Providers Name Role Phone Lovely Vicente MD Primary Care Provider Encounter Details Date Type Department Care Team Description 01/02/2020 Office Visit Dermatology at [facility] ctinic keratoses; Abdelrahman HOOPER MD History of melanoma; [address] [facility] History of dysplastic nevus; [place] [address] Multiple benign nevi; [phone] [facility] Seborrheic yossi [place]; RD-DERMATOLGY Skin exam for malignant neoplasm [place], [place] [address] Social History Tobacco Use Types [...] MD Section of Dermatology [facility] documented in this encounter Plan of Treatment Upcoming Encounters Date Type Specialty Care Team Description 03/26/2022 Office Visit Cardiology Vitaliy Nobles MD [facility] CARDIOLOGY [place], [place] [address] (Wo rk) documented as [...] skin documented in this encounter Care Teams Collection Teller Relationship Specialty Start Date End Date Lovely Vicente MD PCP - General 04/16/[address] [place] [address] documented as of this encounter
--- OUTSIDE RECORDS SUMMARY | 2022-02-20 08:10 | XMS_ITS | Encounter Summary ---
:1945 Author Organization [facility] [address] Care Team Providers Name Role Phone Lovely Vicente MD Primary Care Provider Encounter Details Date Type Department Care Team Description 03/20/2021 Ancillary Procedure Radiology Library [place] [address] [place] [address] [phone] Social History Tobacco Use Types Packs/Day Years [...] Vitaliy Nobles MD [facility] CARDIOLOGY [place], [place] [address] (Wo rk) documented as of [...] Time / Laterality Volume Narrative RAD - 03/20/2021 5:22 PM EDT This exam is auto-finalizing. It's purpo se is for storage only. Hugo Gaston MD IMG FILM LIBRARY ORDERABLES Performing Organization Address City/State/ZIP Code Phon e Number [place], [place] documented in this encounter Visit Diagnoses Not on filedocumented in this encounter Care Teams Inseamer Relationship Specialty Start Date End Date Lovely Vicente MD PCP - General 04/16/[address] [place] [address] documented as of this encounter
--- OUTSIDE RECORDS SUMMARY | 2022-02-20 08:10 | XMS_ITS | Encounter Summary ---
:1945 Author Organization [facility] [place] [address] Care Team Providers Name Role Phone Lovely Vicente MD Primary Care Provider Encounter Details Date Type Department Care Team Description 01/16/2019 Laboratory Appointment Lab 3L [facility] systolic [facility] [place] [phone] Social History Tobacco Use Types Packs/Day Years [...] MD [facility] ER CARDIOLOGY [place], [place] [address] (Wo rk) documented as of [...] athologist Signature ProBNP 780 (H) <=125 pg/mL [facility]OR[facility] Specimen Anatomical Collection Method Collection Time Receive d Time (Source) Location / / Volume Laterality Blood specimen 01/16/2019 7:49 AM 019 7:55 (specimen) EDT AM EDT Resulting Agency Comment Spec In Lab Danette A Hans STACIE CHEMISTRY ORDERABLES Performing Organization Address City/State/[place] [address] (ABNORMAL) Basic Metabolic Panel (non-fasting) (01/16/2019 7:49 AM EDT) athologist Signature Glucose Lvl 105 65 - 199 [facility] mg/dL [facility]OR[facility] Comment: Diabetes: >=200 mg/dL plus symp toms BUN 25 (H) 10 - 20 mg/dL [facility]OR[facility] Creatinine 1.08 0.80 - [...] 15 mmol/L [facility] Calcium 9.2 8.5 - 10.5 mg/dL [facility] LABORATORY Estimated GFR 68 >=60 mL/min/1.73 m?? [facility] Comment: The eGFR was calculated using the CKD-EP I equation. As with all creatinine based estimates of kidney function, eGFR values calculated with the CKD-EPI equation are not accurate in patients wi th acute kidney failure, extremes of body mass or the acutely ill. http://Thucy/[facility] – TULSAnkf eGFR 79 >=60 mL/min/1.73 m?? [facility] Comment: The eGFR was calculated using the CKD-EP I equation. As with all creatinine based estimates of kidney function, eGFR values calculated with the CKD-EPI equation are not accurate in patients wi th acute kidney failure, extremes of body mass or the acutely ill. http://Thucy/[facility] – TULSAnkf Specimen Anatomical Collection Method Collection Time Receive d Time (Source) Location / / Volume Laterality Blood specimen 01/16/2019 7:49 AM 019 7:55 (specimen) EDT AM EDT Resulting Agency Comment Spec In Lab Danette Maxwell APRN CHEMISTRY ORDERABLES Performing Organization Address City/State/[place] [address] documented in this encounter Visit Diagnoses Diagnosis Chronic systolic heart failure documented in this encounter Care Teams Water Pollution Control Technician Relationship Specialty Start Date End Date Lovely Vicente MD PCP - General 04/16/[address] [place] [address] documented as of this encounter
--- OUTSIDE RECORDS SUMMARY | 2022-02-20 08:10 | XMS_ITS | Encounter Summary ---
:1945 Author Organization [facility] [place] [address] Care Team Providers Name Role Phone Lovely Vicente MD Primary Care Provider Encounter Details Date Type Department Care Team Description 12/08/2021 External Results Non-Invasive Cardiology Lab Mar y None [facility] [place] [address] Social History Tobacco Use Types Packs/Day [...] MD [facility] ER CARDIOLOGY [place], [place] [address] (Wo rk) documented as of [...] on filedocumented in this encounter Care Teams Spout Tender Relationship Specialty Start Date End Date Lovely Vicente MD PCP - General 04/16/[address] [place] [address] [address] [facility] [place] [address] documented as of this encounter
--- OUTSIDE RECORDS SUMMARY | 2022-02-20 08:10 | XMS_ITS | Encounter Summary ---
:1945 Author Organization [facility] [place] [address] Care Team Providers Name Role Phone Lovely Vicente MD Primary Care Provider Encounter Details Date Type Department Care Team Description 04/16/2021 Laboratory Appointment Lab 3L [facility] systolic [facility] [place] [phone] Social History Tobacco Use Types Packs/Day Years [...] [facility] ER CARDIOLOGY [place], [place] [address] (Wo rk) documented as of [...] athologist Signature ProBNP 523 (H) <=124 pg/mL [facility] Specimen Anatomical Collection Method Collection Time Receive d Time (Source) Location / / Volume Laterality Blood 04/16/2021 9:58 AM EDT 10:02 AM EDT Resulting Agency Comment Spec In Lab Zulma Plunkett MD CHEMISTRY ORDERABLES Performing Organization Address City/State/[place] [address] (ABNORMAL) Basic Metabolic Panel (non-fasting) (04/16/2021 9:58 AM EDT) athologist Signature Glucose Lvl 77 65 - 199 [facility] mg/dL [facility]OR[facility] Comment: Diabetes: >=200 mg/dL plus symp toms BUN 23 (H) 10 - 20 mg/dL [facility] Creatinine 1.26 0.80 - 1.50 mg/dL [facility] LABOR[facility] Sodium 140 135 - 145 mmol/L [facility] Potassium 5.2 (H) 3.5 - 5.0 mmol/L [facility] Comment: Please note: ??Patients with WBC >100,00 0 may have falsely elevated Potassium levels. ??For accurate Potassium quantif ication in these patients send serum separator tube (gold top) for subsequent determinations. ??Contact the Clinical Chemistry Laboratory if there are any qu estions. Chloride 103 98 - 107 mmol/L [facility] CO2 28 22 - 31 mmol/L [facility] Anion Gap 9 5 - 15 mmol/L [facility] Calcium 9.3 8.5 - 10.5 mg/dL [facility] Estimated GFR 55 (L) >=60 mL/min/1.73 m?? [facility] Comment: This patient? s estimated [...] Address City/State/[place] [address] documented in this encounter Visit Diagnoses Diagnosis Chronic systolic heart failure documented in this encounter Care Teams Hvac Estimator Relationship Specialty Start Date End Date Lovely Vicente MD PCP - General 04/16/[address] [place] [address] documented as of this encounter
--- OUTSIDE RECORDS SUMMARY | 2022-02-20 08:10 | XMS_ITS | Encounter Summary ---
:1945 Author Organization [place] [address] Care Team Providers Name Role Phone Lovely Vicente MD Primary Care Provider Reason for Visit Reason Comments Establish Care Atrial Fibrillation Congestive Heart Failure Cardiomyopathy Encounter Details Date Type Department Care Team Description 09/06/2019 [facility] Ischemic [facility] Osvaldo STRANGE [address] [facility] [address] [place], [place] CARDIOLOGY DEPT. [address] [place] [address] [phone] Social History Tobacco Use Types Packs/Day Years [...] today For any questions, call my office: [phone] To access your health care information, go to the web at: [email or web address] (you will need to register) For educational materials: [email or web address] Karel TRAMMELL.[facility], Clinical Cardiac Electrophysiology, [facility], [facility] A Healthy Heart: After Your Visit [...] least 2 servings of fish a week. [place], mackerel, mcfadden, sardines, and chunk light tuna [...] irregular heartbeat. After you call 911, the assembly operator may tell you to chew 1 [...] more? Visit our health information library at [email or web address]. You can also view health information on PetHub, your personal patient account. Log in or sign up today. Enter F075 in the search box to learn more about A Healthy Heart: After Your Visit. ?? [phone] [employer] documented in this encounter Progress Notes Karel Mcelroy MD - 09/06/2019 2:20 PM EST Images from the original note were not included. Section of Cardiology/Cardiac Electrophysiology [facility] Clinical Cardiac Electrophysiology Consult Patient ID Don Fatima 1945 [id number] Don Fatima is referred to the EP clinic by Danette Maxwell APRN PhD Chief Complaint Dyspnea on exertion Ischemic cardiomyopathy History This is a 74 y.o. male following up/being seen in clinic for evaluation for ongoing anticoagulation. He has a Rabka4Jrxv score of ~ 6-7. 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, can walk [...] on phone: None Gets together: None Attends protestant service: None Active member of club or [...] reviewed the ECG: sinus rhythm, 72 bpm, NV 140 ms, QRS 100 ms, QT 400 [...] EP clinic KAREL MCELROY MD Cardiac Electrophysiology [facility] T: [phone] F: [phone] 35 minutes of this 40 minute encounter were spent in counselling, as described above Cc: MD Danette Cr APRN PhD Janett Espino DPM documented in this encounter Plan of Treatment Upcoming Encounters Date Type Specialty Care Team Description 03/26/2022 Office Visit Cardiology Vitaliy Nobles MD [facility] ER DR CARDIOLOGY [place], [place] [address] (Wo rk) documented as of [...] 446 ms MUSE SYSTEM (Bezet) Calculated P Buckner 37 degrees MUSE SYSTEM Calculated R Buckner -23 degrees MUSE SYSTEM Calculated T Buckner 116 degrees MUSE SYSTEM INTERPRETATION Normal sinus rhythm MUSE SYSTEM Inferior infarct (cited on or before 25-JAN-2013) ST & T wave abnormality, consider anterolateral ischemia Abnormal ECG When compared with ECG of 19-AUG-2017 10:23, No significant change was found Confirmed by MD Castellon Daniel ([id number]) on 09/08/2019 10:22:4 7 AM Specimen Anatomical [...] disease documented in this encounter Care Teams Line Out Man Relationship Specialty Start Date End Date Lovely Vicente MD PCP - General 04/16/[address] [place] [address] documented as of this encounter
--- OUTSIDE RECORDS SUMMARY | 2022-02-20 08:10 | XMS_ITS | Encounter Summary ---
:1945 Author Organization [facility] [place] [address] Care Team Providers Name Role Phone Lovely Vicente MD Primary Care Provider Encounter Details Date Type Department Care Team Description 03/20/2021 Ancillary Procedure Radiology Library at [place] [address] [place] [address] [phone] Social History Tobacco Use Types Packs/Day Years [...] Vitaliy Nobles MD [facility] CARDIOLOGY [place], [place] [address] (Wo rk) documented as of [...] Organization Address City/State/ZIP Code Phon e Number [place], [place] documented in this encounter Visit Diagnoses Not on filedocumented in this encounter Care Teams Sales Account Manager Relationship Specialty Start Date End Date Lovely Vicente MD PCP - General 04/16/[address] [place] [address] documented as of this encounter
--- OUTSIDE RECORDS SUMMARY | 2022-02-20 08:10 | XMS_ITS | Encounter Summary ---
:1945 [place] [address] Care Team Providers Name Role Phone Lovely Vicente MD Primary Care Provider Encounter Details Date Type Department Care Team Description 07/12/2019 Office Visit Dermatology at [facility], Rigoberto Yarbrough (actinic keratosis); MD SHAY Quick III (seborrheic keratosis); [address] [facility] Multiple benign nevi; [place] [address] History of melanoma [phone] [facility] [place], [place] [address] Social History Tobacco Use Types [...] encounter. Rigoberto Garcia MD Section of Dermatology [facility] documented in this encounter Plan of Treatment Upcoming Encounters Date Type Specialty Care Team Description 03/26/2022 Office Visit Cardiology Vitaliy Nobles MD [facility] CARDIOLOGY [place], [place] [address] (Wo rk) documented as of this encounter Visit Diagnoses Diagnosis [place] (actinic keratosis) Actinic keratosis [place] (seborrheic keratosis) Other seborrheic keratosis Multiple benign nevi Benign neoplasm of skin, site unspecifie d History of melanoma Personal history of malignant melanoma o f skin documented in this encounter Care Teams Slab Stripper Relationship Specialty Start Date End Date Lovely Vicente MD PCP - General 04/16/[address] [place] [address] documented as of this encounter
--- OUTSIDE RECORDS SUMMARY | 2022-02-20 08:10 | XMS_ITS | Encounter Summary ---
:1945 Author Organization [facility] [place] [address] Care Team Providers Name Role Phone Lovely Vicente MD Primary Care Provider Encounter Details Date Type Department Care Team Description 12/07/2021 Telephone Cardiology Eddi Briceño Jr., [facility] [place] [address] [facility] [phone] CARDIOLOGY DEPT [place], [place] [address] (Wo rk) Social History Tobacco [...] the OSH ED provider/staff member. Referring Location: [facility] Referring Provider: Marisela Dean, CIGARETTE PAPER TESTER [address] [place] [address] Don Veda Kushal 76 y.o. w / [...] bpm, LAFB, poor R wave progression, septal NM, and lateral STD, overall no significantchange from [...] Vitaliy Nobles MD [facility] [address] [place] [place], [place] [address] (Wo rk) documented as of this encounter Visit Diagnoses Not on filedocumented in this encounter Care Teams Quality Analyst/Technical Writer Relationship Specialty Start Date End Date Lovely Vicente MD PCP - General 04/16/[address] [place] [address] documented as of this encounter
--- OUTSIDE RECORDS SUMMARY | 2022-02-20 08:10 | XMS_ITS | Encounter Summary ---
:1945 Author Organization [facility] Address [address] [place] [address] Care Team Providers Name Role Phone Lovely Vicente MD Primary Care Provider Reason for Referral Diagnostic Test (Routine) - Closed Specialty Diagnoses / Procedures Referred By Contact Refer red To Contact Cardiology Diagnoses Chronic systolic heart failure Danette Maxwell APRN [facility] Non-Inv Card Lab Procedures Echocardiogram Transthoracic(Leb) [facility] [address] [place] [address] [place] [address] Referral ID Status Reason Start Date Expiration Date Visits V isits Requested Authorized [id number] Closed Specialty 07/17/2019 09/14/2019 1 1 Service Requested Encounter Details Date Type Department Care Team Description 01/16/2019 Office Visit Cardiology at [facility] Danette Maxwell, Chronic systolic heart failu re; [facility] STACIE Cardiomyopathy, ischemic; Drive [facility] Hx of thyroid cancer; [place], [place] DR [place]MORE (arteriosclerotic heart disease); [address] CARDIOLOGY MARIA VICTORIA (obstructive sleep apnea) on CPAP [phone] [place], [place] [address] (Wo rk) Social History Tobacco Use Types [...] K+ 4.6 today 6. Post-op atrial fibrillation [id number] 7 (CHF, HTN, DM, vascular disease, thromboembolism) Amiodarone discontinued Continue coumadin INR managed by PCP. 2.1 today 7. PAD 08/06/2017: Right 1st, 2nd, 3rd toe amputation 08/11/2017: Left??femoral arterial access, RLE??angiogram, Balloon angioplasty of R PT with Eleazar 2.5 x 80 10/25/2017: right popliteal-pedal bypass at [facility] 8. Hypothyrodism S/p thyroidectomy for goiter [...] Nobles MD [facility] CARDIOLOGY [place], [place] [address] (Wo rk) documented as of this encounter Results ECHOCARDIOGRAM COMPLETE W CONTRAST (07/28/2019 8:19 AM EST) P athologist Signature EF 40 HEARTTriggertrap SYSTEM Specimen (Source) Anatomical Location Collection Method / Collectio n Time Received Time / Laterality Volume 07/28/2019 Narrative [facility] - 07/28/2019 8:38 AM EST Procedure: ?Transthoracic Echocardiogram Patient: ?NATALYA Mccollum ? (Age): 1945(74y) Med Rec#: ? [id number] ?Sex: ?M ? Site Loc: ? [facility] ?Ht / Wt: ??172(cm)/81(kg) Pt. Loc: ?Echo Lab ?BSA: ?1.94 Study Date: ?? 07/28/2019 ?Pt. Type: Outpatient Tape: ? Referring: MARY ELLEN Reading: Ifeanyi Truong () Depalletizer Operator: Fadumo Flanagan RDCS, FASE Diagnosis: *Chronic systolic [...] E-wave Vmax ?1 ?m/sec ? MV deceleration juem890.5 ? msec ? MV A-wave Vmax ?1 [...] ? Pulmonic Valve/Qp:Qs ?Value ?Units (Range) ? IN end-diastolic Vma1.1 ?m/sec ? Wall Motion: Segment Name ?Rest ? Base-Anteroseptal ?? Normal ? Base-Anterior ? Normal ? Base-Anterolateral ??Normal ? Base-Posterolateral Normal ? Base-Inferior ? Akinetic ? Base-Inferoseptal ?? Normal ? Mid-Anteroseptal ?Normal ? Mid-Anterior ?Hypokinetic ? Mid-Anterolateral ?? Normal ? Mid-Posterolateral ??Normal ? Mid-Inferior ?Hypokinetic ? Mid-Inferoseptal ?Normal ? [place]-Septal ? Normal ? [place]-Anterior ? Hypokinetic ? [place]-Lateral ?Normal ? [place]-Inferior ? Akinetic ? [place]-Tip ?Hypokinetic ? This report has been electronically sign ed by: _ Ifeanyi Truong M.D. ? 07/28/2019 0 8:38:01 Images reviewed and interpretation verif ied [facility] Cardiac Ultrasound Laboratory Procedure Note Ifeanyi Truong MD - 07/28/2019Formatt ing of this note might be different from the original. Procedure: Transthoracic Echocardiogram Patient: NATALYA MCBRIDE(Age): [birth year]74y) Med Rec#: [id number] Sex: M Site Loc: [facility] Ht / Wt: 172(cm)/81(kg) Pt. Loc: Echo Lab BSA: 1.94 Study Date: 07/28/2019 Pt. Type: Outpati ent Tape: Referring: MARY ELLEN Reading: Ifeanyi Truong ([id number]) Depalletizer Operator: Fadumo Flanagan RDCS, FASE Diagnosis: *Chronic systolic [...] MV E-wave Vmax 1 m/sec MV deceleration ngek648.5 msec MV A-wave Vmax 1 m/sec MV [...] 0.7 ratio Pulmonic Valve/Qp:Qs Value Units (Range) IN end-diastolic Vma1.1 m/sec Wall Motion: Segment Name Rest Base-Anteroseptal Normal Base-Anterior Normal Base-Anterolateral Normal Base-Posterolateral Normal Base-Inferior Akinetic Base-Inferoseptal Normal Mid-Anteroseptal Normal Mid-Anterior Hypokinetic Mid-Anterolateral Normal Mid-Posterolateral Normal Mid-Inferior Hypokinetic Mid-Inferoseptal Normal [place]-Septal Normal [place]-Anterior Hypokinetic [place]-Lateral Normal [place]-Inferior Akinetic [place]-Tip Hypokinetic This report has been electronically sign ed by: _ Ifeanyi Truong M.D. 07/28/2019 08:38:0 1 Images reviewed and interpretation elvie hwang [facility] Cardiac Ultrasound Laboratory Danette Maxwell APRN ECHO ORDERABLES Performing Organization Address City/State/ZIP Code Phon e Number [facility] (ABNORMAL) Basic Metabolic Panel (non-fasting) (01/16/2019 7:49 AM EDT) P athologist Signature Glucose Lvl 105 65 - 199 [facility] mg/dL [facility] Comment: Diabetes: >=200 mg/dL plus symp toms BUN 25 (H) 10 - 20 mg/dL [facility] Creatinine 1.08 0.80 - 1.50 mg/dL [facility] Sodium 145 135 - 145 mmol/L [facility] [...] estions. Chloride 106 98 - 107 mmol/L [facility] CO2 26 22 - 31 mmol/L [facility] Anion Gap 13 5 - 15 mmol/L [facility] Calcium 9.2 8.5 - 10.5 mg/dL [facility] Estimated GFR 68 >=60 mL/min/1.73 m?? [facility] Comment: The eGFR was calculated using the CKD-EP I equation. As with all creatinine based estimates of kidney function, eGFR values calculated with the CKD-EPI equation are not accurate in patients wi th acute kidney failure, extremes of body mass or the acutely ill. [email or web address] eGFR 79 >=60 mL/min/1.73 m?? [facility] Comment: The eGFR was calculated using the CKD-EP I equation. As with all creatinine based estimates of kidney function, eGFR values calculated with the CKD-EPI equation are not accurate in patients wi th acute kidney failure, extremes of body mass or the acutely ill. [email or web address]/DHMCnkf Specimen Anatomical Collection Method Collection Time Receive d Time (Source) Location / / Volume Laterality Blood specimen 01/16/2019 7:49 AM 019 7:55 (specimen) EDT AM EDT Resulting Agency Comment Spec In Lab Danette Maxwell APRN CHEMISTRY ORDERABLES Performing Organization Address City/State/ZIP [place] [address] (ABNORMAL) pro-Brain Natriuretic Peptide (01/16/2019 7:49 AM EDT) P athologist Signature ProBNP 780 (H) <=125 pg/mL [facility] Specimen Anatomical Collection Method Collection Time Receive d Time (Source) Location / / Volume Laterality Blood specimen 01/16/2019 7:49 AM 019 7:55 (specimen) EDT AM EDT Resulting Agency Comment Spec In Lab Danette Maxwell APRN CHEMISTRY ORDERABLES Performing Organization Address City/State/ZIP [place] [address] documented in this encounter Visit Diagnoses Diagnosis Chronic systolic heart failure Cardiomyopathy, ischemic Other specified forms of chronic ischemi c heart disease Hx of thyroid cancer Personal history of malignant neoplasm o f thyroid ASHD (arteriosclerotic heart disease) Coronary atherosclerosis of unspecified type of vessel, sitka or graft MARIA VICTORIA (obstructive sleep apnea) on CPAP Obstructive sleep apnea (adult) (pediatr ic) Chronic systolic heart failure documented in this encounter Care Teams Hog Sticker Relationship Specialty Start Date End Date Lovely Vicente MD PCP - General 04/16/[address] [place] [address] documented as of this encounter
--- OUTSIDE RECORDS SUMMARY | 2022-02-20 08:10 | XMS_ITS | Encounter Summary ---
:1945 Author Organization [place] [address] Care Team Providers Name Role Phone Lovely Vicente MD Primary Care Provider Reason for Referral Diagnostic Test (Routine) - Closed Specialty Diagnoses / Procedures Referred By Contact Refer red To Contact Cardiology Diagnoses Chronic systolic heart failure Danette Maxwell APRN [facility] Non-Inv Card Lab Procedures Echocardiogram Transthoracic(Leb) [facility] [place] [place] [address] [place] [address] Referral ID Status Reason Start Date Expiration Date Visits V isits Requested Authorized [id number] Closed Specialty 07/17/2019 09/14/2019 1 1 Service Requested Reason for Visit Diagnostic Test (Routine) - Closed Specialty Diagnoses / Procedures Referred By Contact Refer red To Contact Cardiology Diagnoses Chronic systolic heart failure Danette Maxwell APRN [facility] Non-Inv Card Lab Procedures Echocardiogram Transthoracic(Leb) [facility] [place] [address] [place] [address] Referral ID Status Reason Start Date Expiration Date Visits V isits Requested Authorized [id number] Closed Specialty 07/17/2019 09/14/2019 1 1 Service Requested Encounter Details Date Type Department Care Team Description 07/28/2019 Hospital Encounter Non-Invasive Chronic s ystolic heart [place] [address] Social History Tobacco Use Types Packs/Day [...] [facility] ER CARDIOLOGY [place], [place] [address] (Wo rk) documented as of [...] Mccollum ? (Age): 1945(74y) Med Rec#: ? [id number] ?Sex: ?M ? Site Loc: ? [facility] ?Ht / Wt: ??172(cm)/81(kg) Pt. Loc: ?Echo Lab ?BSA: ?1.94 Study Date: ?? 07/28/2019 ?Pt. Type: Outpatient Tape: ? Referring: MARY ELLEN Reading: Ifeanyi Truong ([id number]) Plane Captain: Fadumo Flanagan RDCS, FASE Diagnosis: *Chronic systolic [...] E-wave Vmax ?1 ?m/sec ? MV deceleration dtye804.5 ? msec ? MV A-wave Vmax ?1 [...] ? Mid-Inferior ?Hypokinetic ? Mid-Inferoseptal ?Normal ? [place]-Septal ? Normal ? [place]-Anterior ? Hypokinetic ? [place]-Lateral ?Normal ? [place]-Inferior ? Akinetic ? [place]-Tip ?Hypokinetic ? This report has been electronically sign ed by: _ Ifeanyi Truong M.D. ? 07/28/2019 0 8:38:01 Images reviewed and interpretation verif ied [facility] Cardiac Ultrasound Laboratory Procedure Note Ifeanyi Truong MD - 07/28/2019Formatt ing of this note might be different from the original. Procedure: Transthoracic Echocardiogram Patient: NATALYA MCBRIDE(Age): [birth year]74y) Med Rec#: [id number] Sex: M Site Loc: [facility] Ht / Wt: 172(cm)/81(kg) Pt. Loc: Echo Lab BSA: 1.94 Study Date: 07/28/2019 Pt. Type: Outpati ent Tape: Referring: MARY ELLEN Reading: Ifeanyi Truong ([id number]) Plane Captain: Fadumo Flanagan RDCS, FASE Diagnosis: *Chronic systolic [...] MV E-wave Vmax 1 m/sec MV deceleration hayw568.5 msec MV A-wave Vmax 1 m/sec MV [...] Normal Mid-Posterolateral Normal Mid-Inferior Hypokinetic Mid-Inferoseptal Normal [place]-Septal Normal [place]-Anterior Hypokinetic [place]-Lateral Normal [place]-Inferior Akinetic [place]-Tip Hypokinetic This report has been electronically sign ed by: _ Ifeanyi Truong M.D. 07/28/2019 08:38:0 1 Images reviewed and interpretation verif ied [facility] Cardiac Ultrasound Laboratory Danette Maxwell APRN ECHO [...] Routine documented in this encounter Care Teams Yarn Weigher Relationship Specialty Start Date End Date Lovely Vicente MD PCP - General 04/16/[address] [place] [address] documented as of this encounter
--- OUTSIDE RECORDS SUMMARY | 2022-02-20 08:10 | XMS_ITS | Encounter Summary ---
:1945 [place] [address] Care Team Providers Name Role Phone Lovely Vicente MD Primary Care Provider Reason for Visit Reason Comments Skin Cancer Examination Encounter Details Date Type Department Care Team Description 03/20/2021 Office Visit Dermatology at [facility] Brennen Rene MD History of melanoma; [facility] History of dysplastic nevus; [address] Multiple benign nevi; [place] [address] [facility] (seborrheic keratosis); [phone] RD-DERMATOLOGY [place] (actinic keratosis) [place], [place] [address] Social History Tobacco Use Types [...] no SOCIAL HISTORY 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 Last visit at [facility] Derm: 01/02/2020 Medications: Reviewed in eD-H [...] FSE; history of Melanoma []Note routed to confidential secretary [x]Recall has been placed in scheduling system []Appointment scheduled at checkout Scribe attestation: Yoana Pang LPN has performed the documentation for this encounter in the presence of and acting as a scribe for LAURA RENE MD I performed the above scribed service and agree with the accuracy of the documentation in this encounter. Reviewed and signed by: LAURA RENE MD Dermatology [facility] documented in this encounter Plan of Treatment Upcoming Encounters Date Type Specialty Care Team Description 03/26/2022 Office Visit Cardiology Vitaliy Nobles MD [facility] CARDIOLOGY [place], [place] [address] (Wo rk) documented [...] keratosis documented in this encounter Care Teams Ribbing Machine Operator Relationship Specialty Start Date End Date Lovely Vicente MD PCP - General 04/16/[address] [place] [address] documented as of this encounter
--- OUTSIDE RECORDS SUMMARY | 2022-02-20 08:10 | XMS_ITS | Encounter Summary ---
:1945 [place] [address] Care Team Providers Name Role Phone Lovely Vicente MD Primary Care Provider Encounter Details Date Type Department Care Team Description 12/07/2021 Ancillary Procedure Radiology Library at Lovely Candelaria MD [facility] [address] [phone] (Wo rk) [phone] Social History Tobacco Use Types Packs/Day Years [...] Nobles MD [facility] CARDIOLOGY [place], [place] [address] (Wo rk) documented as of [...] Organization Address City/State/ZIP Code Phon e Number [place], [place] documented in this encounter Visit Diagnoses Not on filedocumented in this encounter Care Teams Brusher Operator Relationship Specialty Start Date End Date Lovely Vicente MD PCP - General 04/16/[address] [place] [address] documented as of this encounter
--- OUTSIDE RECORDS SUMMARY | 2022-02-20 08:10 | XMS_ITS | Encounter Summary ---
:1945 Author Organization [facility] [place] [address] Care Team Providers Name Role Phone Lovely Vicente MD Primary Care Provider Encounter Details Date Type Department Care Team Description 08/26/2018 Transcribe Orders Laboratory Lovely Vicente, Deferred diagnosis [facility] MD on axis [address] [place] [address] [address] [address] [place], [place] [phone] [address] Social History Tobacco Use Types Packs/Day Years [...] Nobles MD [facility] ER CARDIOLOGY [place], [place] [address] (Wo rk) documented as of this encounter Visit Diagnoses Diagnosis Deferred diagnosis on axis I Other unknown and unspecified cause of m orbidity or mortality documented in this encounter Care Teams Top Frame Fitter Relationship Specialty Start Date End Date Lovely Vicente MD PCP - General 04/16/[address] [place] [address] [address] [place] [address] documented as of this encounter
--- OUTSIDE RECORDS SUMMARY | 2022-02-20 08:10 | XMS_ITS | Encounter Summary ---
:1945 Author Organization [place] [address] Care Team Providers Name Role Phone Lovely Vicente MD Primary Care Provider Encounter Details Date Type Department Care Team Description 02/19/2020 Telephone Dermatology at [facility] Ariana Wilder LPN [address] [place] [address] Social History Tobacco Use Types Packs/Day [...] MD [facility] ER CARDIOLOGY [place], [place] [address] (Wo rk) documented as of this encounter Visit Diagnoses Not on filedocumented in this encounter Care Teams Feed Elevator Worker Relationship Specialty Start Date End Date Lovely Vicente MD PCP - General 04/16/[address] [place] [address] documented as of this encounter
--- OUTSIDE RECORDS SUMMARY | 2022-02-20 08:10 | XMS_ITS | Encounter Summary ---
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 Post-op atrial fibrillation [id number] (CHF, HTN, DM, vascular disease, thromboembolism) Amiodarone discontinued Continue coumadin INR managed by PCP. 2.1 today 7. PAD 08/06/2017: Right 1st, 2nd, 3rd toe amputation 08/11/2017: Left??femoral arterial access, RLE??angiogram, Balloon angioplasty of R PT with Eleazar 2.5 x 80 10/25/2017: right popliteal-pedal bypass at [facility] 8. Hypothyrodism S/p thyroidectomy for [...] Vitaliy Nobles MD [facility] [address] [address] (Wo rk) documented as of this encounter Results Lipid Panel (08/15/2018 8:04 AM EST) P athologist Signature Chol, Total 75 mg/dL [facility] Comment: Lower Risk: <200 mg/dL Average Risk: 200-239 mg/dL Higher Risk: >pi=228 mg/dL Triglycerides 185 mg/dL [facility] Comment: Average Risk/Lower Risk: <150 mg/dL Borderline High Risk: 150-199 mg/dL High Risk: 200-499 mg/dL Very High Risk: >fd=040 mg/dL HDL 32 mg/dL [facility] Comment: Males: ?? Higher Risk: <40 mg/dL Females: ?? HIgher Risk: <50 mg/dL LDL Cholesterol 6 mg/dL [facility] Comment: Lowest Risk: <100 mg/dL Lower Risk: 100-129 mg/dL Borderline High Risk: 130-159 mg/dL High Risk: 160-189 mg/dL Very High Risk: >qm=767 mg/dL Chol/HDL Ratio 2.3 ratio [facility] Lipid Interpretation See Note [facility] Comment: Lipid management should be guided by a p atient? s ASCVD risk, goals and preferences. ACC/AHA Guidelines recommend high intens ity statin if clinical ASCVD or LDL greater than or equal to 190 mg/dL. http://Syndevrx.Ad Knights/MUN-VMH-Zmoqyjsui Adults aged 40-75 with LDL 70-189 mg/dL should have their 10 year ASCVD risk estimated with the ACC/AHA ASCVD risk es timator http://tools.acc.org/BFCFT-Koic-Mgtlalds r/ Statin should be discussed if risk [...] City/State/[place] [address] (ABNORMAL) Basic Metabolic Panel (non-fasting) (08/15/2018 8:04 AM EST) P athologist Signature Glucose Lvl 116 65 - 199 [facility] mg/dL [facility] Comment: Diabetes: >=200 mg/dL [...] LABORATORY Calcium 9.0 8.5 - 10.5 mg/dL [facility] Estimated GFR 68 >=60 mL/min/1.73 m?? [facility] Comment: The eGFR was calculated using the CKD-EP I equation. As with all creatinine based estimates of kidney function, eGFR values calculated with the CKD-EPI equation are not accurate in patients wi th acute kidney failure, extremes of body mass or the acutely ill. http://Dailysingle/DHMCnkf eGFR 79 >=60 mL/min/1.73 m?? [facility] Comment: The eGFR was calculated using the CKD-EP I equation. As with all creatinine based estimates of kidney function, eGFR values calculated with the CKD-EPI equation are not accurate in patients wi th acute kidney failure, extremes of body mass or the acutely ill. http://Syndevrx.Ad Knights/DHMCnkf Specimen Anatomical Collection Method Collection Time Receive d Time (Source) Location / / Volume Laterality Blood specimen 08/15/2018 8:04 AM 019 8:20 (specimen) EST AM EST Resulting Agency Comment Spec In Lab Danette Maxwell STACIE CHEMISTRY ORDERABLES Performing Organization Address City/[facility]/[place] [address] (ABNORMAL) pro-Brain Natriuretic Peptide (08/15/2018 8:04 AM EST) P athologist Signature ProBNP 1,797 (H) <=125 [facility] pg/mL [facility] Specimen Anatomical Collection Method Collection Time Receive d Time (Source) Location / / Volume Laterality Blood specimen 08/15/2018 8:04 AM 019 8:20 (specimen) EST AM EST Resulting Agency Comment Spec In Lab Danette A [place] STACIE CHEMISTRY ORDERABLES Performing Organization Address City/[facility]/[place] [address] documented in this encounter Visit Diagnoses Diagnosis Chronic systolic heart failure Cardiomyopathy, ischemic Other specified forms of chronic ischemi c heart disease ASCVD (arteriosclerotic cardiovascular d isease) Unspecified cardiovascular disease Essential hypertension Unspecified essential hypertension MARIA VICTORIA on CPAP Obstructive sleep apnea (adult) (pediatr ic) documented in this encounter Care Teams Teasel Setter Relationship Specialty Start Date End Date Lovely Vicente MD PCP - General 04/16/[address] [place] [address] documented as of this encounter
--- OUTSIDE RECORDS SUMMARY | 2022-02-20 08:10 | XMS_ITS | Encounter Summary ---
:1945 Author Organization [facility] [place] [address] Care Team Providers Name Role Phone Lovely Vicente MD Primary Care Provider Encounter Details Date Type Department Care Team Description 12/07/2021 External [place] [address] Social History Tobacco Use Types Packs/Day [...] MD [facility] ER CARDIOLOGY [place], [place] [address] (Wo rk) documented as of [...] on filedocumented in this encounter Care Teams Inspector Receiving Relationship Specialty Start Date End Date Dobbertin, Lovely, MD PCP - General 04/16/[address] [place] [address] documented as of this encounter
--- OUTSIDE RECORDS SUMMARY | 2022-02-20 08:10 | XMS_ITS | Encounter Summary ---
:1945 [place] [address] Care Team Providers Name Role Phone Lovely Vicente MD Primary Care Provider Encounter Details Date Type Department Care Team Description 08/15/2018 Laboratory Appointment Lab [address] [place] [address] Social History Tobacco Use Types Packs/Day [...] Nobles MD [facility] ER CARDIOLOGY [place], [place] [address] (Wo rk) documented as of this encounter Procedures Procedure Name Priority Date/Time Associated Diagnosis Comme nts PROTHROMBIN TIME Routine 08/15/2018 8:04 AM Resul ts for this EST procedure are i n the results section. documented in this encounter Results (ABNORMAL) Prothrombin Time (08/15/2018 8:04 AM EST) P athologist Signature PT 24.0 (H) 9.4 - 12.5 [facility] LABORATORY INR 2.1 [facility] Comment: An INR <2.0 indicates [...] City/State/ZIP Code Phon e Number [place] [phone] documented in this encounter Visit Diagnoses Not on filedocumented in this encounter Care Teams Mail Technician Relationship Specialty Start Date End Date Lovely Vicente MD PCP - General 04/16/[address] [place] [address] documented as of this encounter
--- OUTSIDE RECORDS SUMMARY | 2022-02-20 08:10 | XMS_ITS | Encounter Summary ---
:1945 Author Organization [facility] [address] Care Team Providers Name Role Phone Lovely Vicente MD Primary Care Provider Reason for Visit Reason Onset Date Comments Other 03/24/2019 cardiac clearance ne eded Encounter Details Date Type Department Care Team Description 03/24/2019 Telephone Cardiology at [facility] Danette Maxwell, Other (cardiac [facility] CERTIFIED ALCOHOL AND DRUG COUNSELOR clearance needed) [place] [address] CARDIOLOGY [place], [place] [address] (Wo rk) Social History Tobacco [...] AM EDT Leonela from [facility] [place] called requesting cardiac clearance for this patient who is to have a colonoscopy on 04/04/19. He is on anticoagulation and they will need to bridge him. Their phone # [phone], fax# [phone]. Thank you. documented in this encounter Plan of Treatment Upcoming Encounters Date Type Specialty Care Team Description 03/26/2022 Office Visit Cardiology Vitaliy Nobles MD [facility] ER CARDIOLOGY [place], [place] [address] (Wo rk) documented as of this encounter Visit Diagnoses Not on filedocumented in this encounter Care Teams Manager Fiber Relationship Specialty Start Date End Date Lovely Vicente MD PCP - General 04/16/[address] [place] [address] documented as of this encounter
--- OUTSIDE RECORDS SUMMARY | 2022-02-20 08:10 | XMS_ITS | Encounter Summary ---
:1945 Author Organization [facility] [address] Care Team Providers Name Role Phone Lovely Vicente MD Primary Care Provider Encounter Details Date Type Department Care Team Description 07/28/2019 Office Visit Cardiology at [facility] Danette Maxwell Chronic systolic heart failu re; [facility] A, STACIE ASHD (arteriosclerotic heart disease); Drive [facility] S/P CABG x 3; [place], [place] MARIA VICTORIA (obstructive sleep apnea) on CPAP; [phone] CARDIOLOGY Mixed hyperlipidemia [phone] [place], [place] [address] Social History Tobacco Use Types [...] in this encounter Progress Notes Danette Maxwell, DOT ETCHER APPRENTICE - 07/28/2019 9:40 AM EST Images from [...] regurgitation present. 07/07/2019 - 07/21/2019 Zio Patch Fast Food Shift Lead The patient had a minimum heart rate [...] K+ 4.5 today 6. Post-op atrial fibrillation [id number] (CHF, HTN, DM, vascular disease, thromboembolism) Amiodarone discontinued Continue coumadin INR managed by PCP 7. PAD 08/06/2017: Right 1st, 2nd, 3rd toe amputation 08/11/2017: Left??femoral arterial access, RLE??angiogram, Balloon angioplasty of R PT with Eleazar 2.5 x 80 10/25/2017: right popliteal-pedal bypass at [facility] 8. Hypothyrodism S/p thyroidectomy for goiter Continue [...] advised: Refer to EP (Dr. Mcelroy in [place]) 5. Heart Failure Clinic follow up scheduled for: 3 months with proBNP and BMP Danette Maxwell APRN 07/28/2019 documented in this encounter Plan of Treatment Upcoming Encounters Date Type Specialty Care Team Description 03/26/2022 Office Visit Cardiology Vitaliy Nobles MD [facility] [place] [address] (Wo rk) documented as of this encounter Results (ABNORMAL) Basic Metabolic Panel (non-fasting) (07/28/2019 8:36 AM EST) athologist Signature Glucose Lvl 153 65 - 199 [facility] mg/dL [facility] Comment: Diabetes: >=200 mg/dL plus symp toms BUN 22 (H) 10 - 20 mg/dL [facility] [...] 15 mmol/L [facility] Calcium 9.3 8.5 - 10.5 mg/dL [facility] Estimated GFR 70 >=60 mL/min/1.73 m?? [facility] Comment: The eGFR was calculated using the CKD-EP I equation. As with all creatinine based estimates of kidney function, eGFR values calculated with the CKD-EPI equation are not accurate in patients wi th acute kidney failure, extremes of body mass or the acutely ill. http://Makeblock/DHMCnkf eGFR 81 >=60 mL/min/1.73 m?? [facility] Comment: The eGFR was calculated using the CKD-EP I equation. As with all creatinine based estimates of kidney function, eGFR values calculated with the CKD-EPI equation are not accurate in patients wi th acute kidney failure, extremes of body mass or the acutely ill. http://Makeblock/DHMCnkf Specimen Anatomical Collection Method Collection Time Receive d Time (Source) Location / / Volume Laterality Blood specimen 07/28/2019 8:36 AM 020 8:46 (specimen) EST AM EST Resulting Agency Comment Spec In Lab Danette Gomes Hans STACIE CHEMISTRY ORDERABLES Performing Organization Address City/[facility]/[place] [address] (ABNORMAL) pro-Brain Natriuretic Peptide (07/28/2019 8:36 AM EST) P athologist Signature ProBNP 647 (H) <=125 pg/mL [facility] Specimen Anatomical Collection Method Collection Time Receive d Time (Source) Location / / Volume Laterality Blood specimen 07/28/2019 8:36 AM 020 8:46 (specimen) EST AM EST Resulting Agency Comment Spec In Lab Danette Eliseo Hans QUINONES CHEMISTRY ORDERABLES Performing Organization Address City/[facility]/ZIP [facility] [place] [address] documented in this encounter Visit Diagnoses Diagnosis Chronic systolic heart failure ASHD (arteriosclerotic heart disease) Coronary atherosclerosis of unspecified type of vessel, [place] or graft S/P CABG x 3 Postsurgical aortocoronary bypass status MARIA VICTORIA (obstructive sleep apnea) on CPAP Obstructive sleep apnea (adult) (pediatr ic) Mixed hyperlipidemia documented in this encounter Care Teams Project Development Coordinator Relationship Specialty Start Date End Date Lovely Vicente MD PCP - General 04/16/[address] [place] [address] documented as of this encounter
--- OUTSIDE RECORDS SUMMARY | 2022-02-20 08:10 | XMS_ITS | Encounter Summary ---
:1945 [place] [address] Care Team Providers Name Role Phone Lovely Vicente MD Primary Care Provider Encounter Details Date Type Department Care Team Description 04/16/2021 Office Visit Cardiology at [facility] Liz Poole, Chronic systolic heart [facility] [place] [address] Cardiology Dept [phone] [place], [place] [address] Social History Tobacco Use Types [...] feeling good. 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 07/07/2019 - 07/21/2019 Zio Patch Sewing Machine Operator Plastic Zipper The patient had a minimum heart rate [...] K+ 5.2 today 6. Post-op atrial fibrillation [id number] (CHF, HTN, DM, vascular disease, thromboembolism) On warfarin - recent labile INR Will discuss with PCP, option of Luis Daniel 7. PAD 08/06/2017: Right 1st, 2nd, 3rd toe amputation 08/11/2017: Left??femoral arterial access, RLE??angiogram, Balloon angioplasty of R PT 10/25/2017: right popliteal-pedal bypass at [facility] 8. Hypothyrodism S/p thyroidectomy for [...] MD [facility] CARDIOLOGY [place], [place] [address] (Wo rk) documented as of this encounter Results (ABNORMAL) Basic Metabolic Panel (non-fasting) (04/16/2021 9:58 AM EDT) P athologist Signature Glucose Lvl 77 65 - 199 [facility] mg/dL [facility] Comment: Diabetes: >=200 mg/dL plus symp toms BUN 23 (H) 10 - 20 mg/dL [facility] Creatinine 1.26 0.80 - 1.50 mg/dL [facility] [...] estions. Chloride 103 98 - 107 mmol/L [facility] CO2 28 22 - 31 mmol/L [facility] Anion Gap 9 5 - 15 mmol/L [facility] Calcium 9.3 8.5 - 10.5 mg/dL [facility] Estimated GFR 55 (L) >=60 mL/min/1.73 m?? [facility] [...] Organization Address City/State/[place] [address] (ABNORMAL) pro-Brain Natriuretic Peptide (04/16/2021 9:58 AM EDT) P athologist Signature ProBNP 523 (H) <=124 pg/mL [facility] Specimen Anatomical Collection Method Collection Time Receive d Time (Source) Location / / Volume Laterality Blood 04/16/2021 9:58 AM EDT 10:02 AM EDT Resulting Agency Comment Spec In Lab Zulma Plunkett MD CHEMISTRY ORDERABLES Performing Organization Address City/State/[place] [address] documented in this encounter Visit Diagnoses Diagnosis Chronic systolic heart failure documented in this encounter Care Teams Addressograph Operator Relationship Specialty Start Date End Date Lovely Vicente MD PCP - General 04/16/[address] [place] [address] documented as of this encounter
--- OUTSIDE RECORDS SUMMARY | 2022-02-20 08:10 | XMS_ITS | Encounter Summary ---
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 Language: Mexican Race: White Ethnicity: Not nor Admit date: [...] Peter PA-C Kelly LaFlamme PA-C Cardiovascular Medicine [phone] Discharge Diagnoses (Hospital Problems) and Secondary Diagnoses [...] 3.75 guiding catheter and a 3.5 Fr [place] 20 Mhz using Manual pullback. Imaging was successful. Image quality was good. The ostial LCX showed moderate diffuse atherosclerotic plaque with scattered three quadrant calcification. Measurements were performed after pre-dilation. Post Intervention: The stent was well expanded and apposed. Intravascular Ultrasound was performed in the distal LM using a 7 Fr EBU 3.75 guiding catheter and a 3.5 Fr [place] [facility] [place] 20 Mhz using Manual pullback. Imaging was successful. Image quality was good. The distal LM showed moderate diffuse atherosclerotic plaque. Post Intervention: The stent was well expanded and apposed. Indication for Intervention: Coronary intervention was indicated for primary therapy for an acute myocardial infarction. The priority for the procedure was Urgent. The [facility] indication for the procedure was [...] may require modification of this regimen. Consult [facility] Interventional Cardiology for questions. The 1 year [...] vascular congestion and cardiomegaly. ?? TTE from [facility] 12/08/21 ? Prior Cardiac Studies: [...] prior thyroidectomy in 2012 who presented to [facility] with 1 week progressing breathlessness [...] 03/2021 with Liz Poole PA-C. ?? At [facility], respiratory distress with hypoxia 86% [...] and diet drinks did not cause his HI. This is what his thought was the [...] appointments: During 8am-5pm Wednesday through Wednesday call [phone] to speak with a nurse in the cardiology clinic All other times call [phone] and ask to speak to the sawyer helper media production operator. Return to work: One week Driving: No driving for 48 hours after catheterization. Follow up Appointments: PCP Lovely Vicente MD [phone] to see patient at the end of December for annual check up. Patient to see Dr. Lorenzana at 1120 am at December 19 for a post hospital check up. Rn Birthing Dr. De Oliveira to see you in [facility]. Left a message for office to set a date and time. Please call [phone] Nobles to see the patient for a same day cath in 2-3 weeks from now. Office to call with a date and time. For questions please call [phone] Home oxygen therapy: N/A Arrangements for VNA/home care: none Future Appointments and Orders Future Orders Complete By Expires Basic Metabolic Panel (non-fasting) [LAB15 Custom] 12/19/2021 (Approximate) 12/12/2022 Process Instructions: INCLUDES: Calcium, BUN, Creat, GFR, Glucose, Lytes Scheduling Instructions: Comments: Questions: Referral to Cardiac Rehab [[id number] Custom] As directed Process Instructions: If no [...] appointments: During 8am-5pm Wednesday through Wednesday call [phone] to speak with a nurse in the cardiology clinic All other times call [phone] and ask to speak to the sawyer helper media production operator. Return to work: One week Driving: No driving for 48 hours after catheterization. Follow up Appointments: PCP Lovely Vicente MD [phone] to see patient at the end of December for annual check up. Patient to see Dr. Lorenzana at 1120 am at December 19 for a post hospital check up. Rn Birthing Dr. De Oliveira to see you in [facility]. Left a message for office to set a date and time. Please call [phone] Nobles to see the patient for a same day cath in 2-3 weeks from now. Office to call with a date and time. 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 Tolerated procedure well. Home today at [...] TROPONINT 1.13* 0.92* 0.89* Pertinent Radiographic/Diagnostic Results: R/[facility] 12/10/21 Hemodynamics: Right Heart Pressures [...] pulmonary vascular congestion and cardiomegaly. 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 Known CAD with hx of HI and CABG. DM. MARIA VICTORIA.ICM. ??? ASHD [...] Lasix 80mg IV x1 in cardiac cath technician. Tolerated procedure well. Review of Systems: [...] Intake/Output Summary (Last 24 hours) at 12/11/2021 0997 Last data filed at 12/11/2021 0508 Gross [...] pulmonary vascular congestion and cardiomegaly. TTE from [facility] 12/08/21 Prior Cardiac Studies: TTE [...] answered his questions. Iker Cuevas MD [facility] Total time spent on review of records prior to visit, face to face time with patient during visit, documentation, and coordination of care with other clinicians: 25 minutes. . Iker Cuevas MD - 12/10/2021 12:30 PM EDT Images from the original note were not included. Inpatient Cardiology Progress Note Patient Name: Don Fatima Service: STRIPPER CUTTER MACHINE / PA Responsible Attending: Iker Cuevas MD Reason for continued hospitalization: NSTEMI- s/p R/LHC- PCW 27, occluded SVGs s/p PCI to ostial LCX ADHF and hypoxia- IV diuresis Active Problems: Active Hospital Problems Diagnosis ??? Admitted with 2 days of sob, hypoxemia, and + trop. Known CAD with hx of HI and CABG. DM. MARIA VICTORIA.ICM. ??? ASHD [...] Lasix 80mg IV x1 in cardiac cath technician. Tolerated procedure well. Review of Systems: [...] TROPONINT 1.13* 0.92* 0.89* Pertinent Radiographic/Diagnostic Results: R/[facility] 12/10/21 Hemodynamics: Right Heart Pressures [...] pulmonary vascular congestion and cardiomegaly. TTE from [facility] 12/08/21 Prior Cardiac Studies: TTE [...] Discussed with MD Migdalia Peter PA-C Pager #[phone] 12/10/2021 Cardiology Attending Note I have seen [...] and given pictures. Iker Cuevas MD [facility] Total time spent on review of records prior to visit, face to face time with patient during visit, documentation, and coordination of care with other clinicians: 35 minutes. Iker Cuevas MD - 12/09/2021 7:28 AM EDT Images from the original note were not included. 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 Admitted with 2 days of sob, hypoxemia, and + trop. Known CAD with hx of HI and CABG. DM. MARIA VICTORIA.ICM. ??? ASHD [...] pulmonary vascular congestion and cardiomegaly. TTE from [facility] 12/08/21 Prior Cardiac Studies: TTE [...] Discussed with MD Migdalia Peter PA-C Pager #[phone] 12/09/2021 Cardiology Attending Note I have seen and examined the patient. I agree with the findings above. Developed CHF early this am despite getting more iv lasix last evening. Feeling better now. INR > 2. Lungs still wet at base. Echo at [facility] showed EF 35% with mild mod MR slightly lower than last value here. -vit K 2.5 orally to facilitate correction of INR- this will take 12-24 hours to take effect -furosemide 80 mg iv now -postpone right and left heart cath until tomorrow given INR and ADHF -increase statin to achieve LDL < 70 -CPAP tonight Iker Cuevas MD [facility] Total time spent on review [...] + trop. Known CAD with hx of HI and CABG. DM. MARIA VICTORIA.ICM. ??? ASHD [...] prior thyroidectomy in 2012 who presented to [facility] with 1 week progressing breathlessness [...] visit 03/2021 with Liz Poole PA-C. At [facility], respiratory distress with hypoxia 86% [...] at [facility] MAIN OR ??? PRO AMPUTATION FOOT, TRANSMETATARSAL Right 08/09/2017 AMPUTATION, TRANSMETATARSAL (WRVU 12.71) performed by Yonathan Smith MD at [facility] MAIN OR ??? [...] MD at [facility] ENDOSCOPY ??? PRO DRESSING CHANGE UNDER ANESTHESIA Right 08/11/2017 (MSURG) DRESSING CHANGE (FOR OTHER THAN IVAN) UNDER ANES. (WRVU 0.86) performed by Lamar Smith MD at [facility] MAIN OR ??? PRO ENDOSCOPY W/VIDEO-ASST VEIN HARVEST, CABG Right 07/07/2017 ENDOSCOPIC HARVEST VEIN(S) FOR CABG (WRVU 0.31) performed by Yuan Retana MD at [facility] MAIN OR ??? PRO THYROIDECTOMY 03/28/2013 THYROIDECTOMY, TOTAL OR COMPLETE performed by Manny Mcknight MD at [facility] MAIN OR Significant Family History: Family [...] (H) 65 - 199 mg/dL Labs at [facility] 12/08/2021-troponin I 8004 (UN L [...] Monitor for ADRs. Trend troponins. Admission EKG. [facility] 12/09; consented. TTE. Telemetry monitoring, [...] code #Diet-carb control; n.p.o. after midnight for [facility] #DVT prophy- heparin infusion #GI prophy- PPI Discussed with MD Morgan Peter PA-C APP2 pager [phone] 12/08/2021 Cardiology Attending Note I have seen [...] is type 1 due to graft or [place] coronary stenosis vs acute injury from CHF. 3. PAF: currrently in NSR. Have replaced warfarin with heparin 4. PAD: stable 5. DM: stable 6. CKD: will monitor and minimize contrast. Pt very appreciative of Dr. Yuan Retana's care in 2018. Will let him know patient is here. Iker Cuevas MD [facility] documented in this encounter Miscellaneous Notes Care [...] Type: *No Product type* / Secondary Insurance: [employer] [place] Prescription Coverage: Yes This plan was [...] cath without complications. Migdalia Parker PA-C Pager #[phone] 12/10/2021 Initial Assessments - Nick Georges RN [...] COVID test: Lab Results Component Value Date [id number] Not Detected 12/08/2021 Past medical History: Past [...] spouse would be surrogate decision maker per [place] surrogate decision making law. (Only good for 180 days) Any patient receiving care at [facility] must abide by [place] law. The hierarchy for surrogate decision making [...] (i) The agent with financial power of consumer attorney or a conservator appointed in accordance [...] - standard, cane - straight Home Address: [address] [place] [address] [place] [address] Social & Family Supports: All names listed below confirmed with patient as current and correct Extended Emergency Contact Information Primary Emergency Contact: Kisha Fatima Address: [address] [place] [address] [place] [address] [facility] Mobile Relation: Spouse Secondary Emergency Contact: Elba Swenson Address: [address] Mobile Relation: Child Current Care Provided [...] Type: *No Product type* / Secondary Insurance: [facility] Prescription Coverage: Yes Preferred Pharmacy: [facility] [address] [address] - [place], [place] - [address] [address] Status: Patient is a : unable to assess Primary Care Provider: Lovely Vicente MD [phone] Patient/Caregiver Goals of Treatment: Get out of here Potential Needs for Transition of Care: none Agency Referrals: none patient has used [facility] in the past Transportation: no concerns Transportation Anticipated: family or friend will provide Concerns to be Addressed: patient refuses services, discharge planning Assessment: Patient is admitted to [facility] Service pager [phone] for 76 y.o.??male??with h/o??CAD s/p 3vCABG (THOMPSON-LAD, [...] status on current unit. Nick Georges RN mellowing machine operator, Office of Care Management Pager: [phone] Brief Op Note - Vitaliy Nobles MD - 12/10/2021 8:31 AM EDT Images from the original note were not included. Formerly [facility] [place] [address] CORONARY ANGIOGRAM AND PERCUTANEOUS CORONARY INTERVENTION REPORT Patient: Don Fatima : 1945 MR number: [id number] Date of Service: 12/10/2021 Oceanographer Physical: Vitaliy Nobles MD Fellow: [place] MD [...] andis managed by his PCP. Lives in [place], [place] with his . States that he [...] 5 gm carb ratio for each meal) [facility] diabetes care: Medications - Outpatient treatment regimen recommendations pending based on the hospital course. Monitoring - continue BG tid ac & hs Diet - low fat/low carb diet Exercise - weight-bearing exercise 30 min/day, as tolerated Thank you for allowing us to provide care for your patient Desirae Jett APRN Endocrinology Pager [phone] 70 minutes of this 80 minute visit [...] + trop. Known CAD with hx of HI and CABG. DM. MARIA VICTORIA.ICM. ??? ASHD [...] for further details. STEPHANIE Rebolledo 12/08/2021 Pager [phone] documented in this encounter Plan of Treatment Upcoming Encounters Date Type Specialty Care Team Description 03/26/2022 Office Visit Cardiology Vitaliy Nobles MD [facility] DR CARDIOLOGY [place], [place] [address] (Wo rk) Scheduled Referrals Name [...] POCT Glucose (12/12/2021 7:42 AM EDT) athologist [facility] POC Glucose 215 (H) 65 - 199 [facility] mg/dL [facility] Comment: Supplemental ranges: <140 mg/dL before meals <180 mg/dL all other times of the day Specimen Anatomical Collection Method Collection Time Receive d Time (Source) Location / / Volume Laterality Blood 12/12/2021 7:42 AM 7:42 EDT AM EDT Ifeanyi Truong MD POINT OF CARE TEST ORDERABLE S Performing Organization Address City/State/[place] [address] (ABNORMAL) Differential, Automated (12/12/2021 4:51 AM EDT) athologist Signature Neutrophils % 75.4 % [facility] LABORATORY Neutr Abs (ANC) 5.95 1.70 - [facility] 6.10 [facility] x10(3)/[facility] LABORATORY Lymphocytes % 12.2 % [facility]OR[facility]ORY Lymphocytes Abs 1.0 0.9 - 3.2 [facility] x10(3)/[facility] LABORATORY Monocytes % 9.5 % [facility] LABORATORY Monocyte Abs 0.8 0.3 - 0.9 [facility] x10(3)/[facility] LABORATORY Eosinophils % 1.8 % [facility] LABOR[facility]ORY Eosinophils Abs 0.1 0.0 - 0.4 [facility] x10(3)/[facility] LABORATORY Basophils % 0.5 % [facility] LABORATORY Basophils Abs 0.0 0.0 - 0.1 [facility] x10(3)/[facility] LABORATORY Immature Gran % 0.60 % WHITE [...] Abs 0.05 (H) 0.00 - 0.04 x10(3)/[facility] LABORATORY Specimen Anatomical Collection Method Collection Time Receive d Time (Source) Location / / Volume Laterality Blood 12/12/2021 4:51 AM 2 5:06 EDT AM EDT Resulting Agency Comment Spec In Lab Bijan Sun MD HEMATOLOGY ORDERABLES Performing Organization Address City/State/[place] [address] (ABNORMAL) Hemogram (12/12/2021 4:51 AM EDT) Analysis Performed At Patho logist Time Signature WBC 7.9 4.0 - 9.5 [facility] x10(3)/[facility] LABORATORY RBC 4.19 (L) 4.58 - [facility] 5.54 [facility] x10(6)/[facility] LABORATORY Hemoglobin 12.1 (L) 13.7 - [facility] 16.5 g/dL [facility] Hematocrit 36.7 (L) 40.5 - [place] 48.5 % [facility] MCV 87.6 82.9 - [facility] RYAN 93.1 [facility] LABORATORY MCH 28.9 27.5 - [place] 32.1 pg [facility] MCHC 33.0 32.0 - [place] 35.7 g/dL [facility] Platelets 231 145 - 357 [facility] x10(3)/[facility] LABORATORY RDWSD 47.2 (H) 36.0 - [place] RYAN 45.0 [facility] LABORATORY RDWCV 14.6 (H) 11.4 - [facility] RYAN 13.8 % [facility] MPV 9.5 7.6 - 12.9 [facility] LABORATORY nRBC % Auto 0.0 % [facility] LABORATORY nRBC Abs Auto 0.000 0.000 - [place] R[place] 0.000 [facility] x10(3)/[facility] LABORATORY Specimen Anatomical Collection Method Collection Time Receive d Time (Source) Location / / Volume Laterality Blood 12/12/2021 4:51 AM 2 5:06 EDT AM EDT Resulting Agency Comment Spec In Lab Bijan Sun MD HEMATOLOGY ORDERABLES Performing Organization Address City/State/[place] [address] (ABNORMAL) Prothrombin Time (12/12/2021 4:51 AM EDT) P athologist Signature PT 14.9 (H) 9.4 - 12.5 [facility] LABORATORY INR 1.3 [place] [...] Organization Address City/State/ZIP Code Phon e Number [place] [id number] (ABNORMAL) BMP w/fasting Glucose (12/12/2021 4:51 AM EDT) P athologist Signature Glucose 152 (H) 65 - 99 [facility] Fasting mg/dL [facility] Comment: ?Fasting* Glucose Interpretive C [...] of Diabetes Mellitus, Position Statement from the [place] [employer]. ??Diabete s Care, Volume 33, Supplement 1, Jul 2009 BUN 52 (H) 10 - 20 mg/dL [facility] Creatinine 1.72 (H) 0.80 [...] 15 mmol/L [facility] Calcium 8.9 8.5 - [...] Organization Address City/State/[place] [address] Magnesium (12/12/2021 4:51 AM EDT) P athologist Signature Magnesium 1.02 0.69 - 1.07 [facility] mmol/L [facility] Specimen Anatomical Collection Method Collection Time Receive d Time (Source) Location / / Volume Laterality Blood 12/12/2021 4:51 AM 2 5:06 EDT AM EDT Resulting Agency Comment Spec In Lab Iker Cuevas MD CHEMISTRY ORDERABLES Performing Organization Address City/State/ZIP Code Phon e Number [address] POCT Glucose (12/12/2021 3:43 AM EDT) P athologist Signature POC Glucose 138 65 - 199 [facility] mg/dL [facility] Comment: Supplemental ranges: <140 mg/dL before meals <180 mg/dL all other times of the day Specimen Anatomical Collection Method Collection Time Receive d Time (Source) Location / / Volume Laterality Blood 12/12/2021 3:43 AM 2 3:43 EDT AM EDT Iker Cuevas MD POINT OF CARE TEST ORDERABLE S Performing Organization Address City/State/[place] [address] POCT Glucose (12/11/2021 11:44 PM EDT) athologist Signature POC Glucose 124 65 - 199 [place] [facility] mg/dL [facility] Comment: Supplemental ranges: <140 mg/dL before meals <180 mg/dL all other times of the day Specimen Anatomical Collection Method Collection Time Receive d Time (Source) Location / / Volume Laterality Blood 12/11/2021 11:44 12/11/2021 PM EDT 11:44 PM EDT Iker Cuevas MD POINT OF CARE TEST ORDERABLE S Performing Organization Address City/State/[place] [address] (ABNORMAL) POCT Glucose (12/11/2021 8:12 PM EDT) athologist Signature POC Glucose 200 (H) 65 - 199 [place] mg/dL [facility] Comment: Supplemental ranges: <140 mg/dL before meals <180 mg/dL all other times of the day Specimen Anatomical Collection Method Collection Time Receive d Time (Source) Location / / Volume Laterality Blood 12/11/2021 8:12 PM 2 8:12 EDT PM EDT Iker Cuevas MD POINT OF CARE TEST ORDERABLE S Performing Organization Address City/State/[place] [address] (ABNORMAL) POCT Glucose (12/11/2021 6:50 PM EDT) athologist Signature POC Glucose 245 (H) 65 - 199 [place] mg/dL [facility] Comment: Supplemental ranges: <140 mg/dL before meals <180 mg/dL all other times of the day Specimen Anatomical Collection Method Collection Time Receive d Time (Source) Location / / Volume Laterality Blood 12/11/2021 6:50 PM 2 6:50 EDT PM EDT Iker Cuevas MD POINT OF CARE TEST ORDERABLE S Performing Organization Address City/[facility]/[place] [address] (ABNORMAL) POCT Glucose (12/11/2021 4:00 PM EDT) P athologist Signature POC Glucose 383 (H) 65 - 199 [facility] mg/dL [facility] Comment: Supplemental ranges: <140 mg/dL before meals <180 mg/dL all other times of the day Specimen Anatomical Collection Method Collection Time Receive d Time (Source) Location / / Volume Laterality Blood 12/11/2021 4:00 PM 2 4:00 EDT PM EDT Iker Cuevas MD POINT OF CARE TEST ORDERABLE S Performing Organization Address City/[facility]/[place] [address] (ABNORMAL) POCT Glucose (12/11/2021 12:01 PM EDT) P athologist Signature POC Glucose 342 (H) 65 - 199 [facility] mg/dL [facility] Comment: Supplemental ranges: <140 mg/dL before meals <180 mg/dL all other times of the day Specimen Anatomical Collection Method Collection Time Receive d Time (Source) Location / / Volume Laterality Blood 12/11/2021 12:01 12/11/2021 PM EDT 12:01 PM EDT Iker Cuevas MD POINT OF CARE TEST ORDERABLE S Performing Organization Address City/[facility]/ZIP Code Phon e Number [address] COVID-19 PCR (12/11/2021 10:13 AM EDT) [facility] gist Method Time Signature SARS-CoV-2 Not Detected Not Detected [facility] Comment: This result should be [...] diagnosis of COVID-19 is performed using the [employer] RONNA S-CoV-2 Assay as authorized by the FDA Emergency Use Authorization (EUA). This EUA assay is intended for In-vitro Diagnostic (IVD) use with respiratory sp ecimens such as nasopharyngeal swabs collected from individuals during the ac terrence phase of infection. This assay is performed based on the instructions for use provided by [employer] and additional guidance provided by CDC and FDA. Testing is performed in the Clinical Genomics and Advanced Technolog y Laboratory within the Department of Pathology and Laboratory Medicine at [facility], certified under the Clinical Laboratory Improvement Amendments [...] required or requested by public health [facility], positive specimens may be sent for additional [...] clinical management guidance information are available at [facility] Coronavirus Disease 2019 (COVID-19) webpage under Information fo r Healthcare Professionals (https://www.cdc.gov/coronavirus/2019-nc ov/hcp/index.html) Additional information about this and ot her EUA tests can be found in provider and patient fact sheets at the following FDA website: https://www.fda.gov/medical-devices/ksvlwkoikri-xslmjxq-5068-oxhzt-82-ydvxbqbpi- apy-svznefdlgitcax-hzgxihb-devices/dnsza-bovdxegaewo-lazb SARS-Cov-2 RNA Source [employer] Swab [facility] LABORATORY Specimen (Source) Anatomical Collection Method Collection Time Re ceived Time Location / / Volume Laterality Nasopharyngeal Swab 12/11/2021 10:13 0503/2022 AM EDT 11:16 AM EDT Comment: Symptoms->Surveillance Resulting Agency Comment Spec In Lab Iker Cuevas MD MICROBIOLOGY - GENERAL ORDER [place]BS[place] Performing Organization Address City/[facility]/[place] [address] POCT Glucose (12/11/2021 7:34 AM EDT) athologist Signature POC Glucose 198 65 - 199 [facility]dL [facility] Comment: Supplemental ranges: <140 mg/dL before meals <180 mg/dL all other times of the day Specimen Anatomical Collection Method Collection Time Receive d Time (Source) Location / / Volume Laterality Blood 12/11/2021 7:34 AM 7:34 EDT AM EDT Iker Cuevas MD POINT OF CARE TEST ORDERABLE S Performing Organization Address City/[facility]/[place] [address] (ABNORMAL) POCT Glucose (12/11/2021 5:07 AM EDT) athologist Signature POC Glucose 208 (H) 65 - 199 [facility] mg/dL [facility] Comment: Supplemental ranges: <140 mg/dL before meals <180 mg/dL all other times of the day Specimen Anatomical Collection Method Collection Time Receive d Time (Source) Location / / Volume Laterality Blood 12/11/2021 5:07 AM 2 5:07 EDT AM EDT Iker Cuevas MD POINT OF CARE TEST ORDERABLE S Performing Organization Address City/State/[place] [address] (ABNORMAL) Differential, Automated (12/11/2021 4:28 AM EDT) [facility] Method Time Signature Neutrophils % 79.6 % [facility] LABORATORY Neutr Abs (ANC) 7.01 (H) 1.70 - [facility] 6.10 [facility] x10(3)/[facility] L LABORATORY Lymphocytes % 9.1 % [facility] LABORATORY Lymphocytes Abs 0.8 (L) 0.9 - 3.2 [facility] x10(3)/[facility] LABORATORY Monocytes % 9.2 % [facility] LABORATORY Monocyte Abs 0.8 0.3 - 0.9 [facility] x10(3)/[facility] LABORATORY Eosinophils % 1.3 % [facility] LABORATORY Eosinophils Abs 0.1 0.0 - 0.4 [facility] x10(3)/[facility] LABORATORY Basophils % 0.5 % [facility] LABORATORY Basophils Abs 0.0 0.0 - 0.1 [facility] x10(3)/[facility] LABORATORY Immature Gran % 0.30 [...] Melisa Gran Abs 0.03 0.00 - 0.04 x10(3)/[facility] LABORATORY Specimen Anatomical Collection Method Collection Time Receive d Time (Source) Location / / Volume Laterality Blood 12/11/2021 4:28 AM 2 4:37 EDT AM EDT Resulting Agency Comment Spec In Lab Bijan Sun MD HEMATOLOGY ORDERABLES Performing Organization Address City/State/[place] [address] (ABNORMAL) Hemogram (12/11/2021 4:28 AM EDT) Analysis Performed At Patho logist Time Signature WBC 8.8 4.0 - 9.5 [facility] x[facility](3[facility] LABORATORY RBC 4.15 (L) 4.58 - [facility] 5.54 [facility] x10(6)/[facility] LABORATORY Hemoglobin 11.9 (L) 13.7 - [facility] 16.5 g/dL [facility]ORY Hematocrit 36.9 (L) 40.5 - [facility] 48.5 % [facility] MCV 88.9 82.9 - [facility] 93.1 [facility] LABORATORY MCH 28.7 27.5 - [facility] RYAN 32.1 pg [facility] LABORATORY MCHC 32.2 32.0 - [facility] 35.7 g/dL [facility] LAB[facility]ATORY Platelets 211 145 - 357 [facility] x10(3)/[facility] LABORATORY RDWSD 48.3 (H) 36.0 - [facility] 45.0 [facility] LABORATORY RDWCV 14.8 (H) 11.4 - [facility] 13.8 % [facility] LABORATORY MPV 9.6 7.6 - 12.9 [facility] LABORATORY nRBC % Auto 0.0 % [facility] LABORATORY nRBC Abs Auto 0.000 0.000 - [facility] R[facility] 0.000 [facility] x10(3)/[facility] LABORATORY Specimen Anatomical Collection Method Collection Time Receive d Time (Source) Location / / Volume Laterality Blood 12/11/2021 4:28 AM 4:37 EDT AM EDT Resulting Agency Comment Spec In Lab Bijan Sun MD HEMATOLOGY ORDERABLES Performing Organization Address City/State/[place] [address] (ABNORMAL) Prothrombin Time (12/11/2021 4:28 AM EDT) P athologist Signature PT 17.7 (H) 9.4 - 12.5 [facility] sec [facility] INR 1.6 [facility] Organization Address City/State/[place] [address] (ABNORMAL) BMP w/fasting Glucose (12/11/2021 4:28 AM EDT) athologist Signature Glucose 207 (H) 65 - 99 [facility] Fasting mg/dL [facility] LAB[facility] Comment: ?Fasting* Glucose Interpretive C [...] of Diabetes Mellitus, Position Statement from the [place] [employer]. ??Diabete s Care, Volume 33, Supplement 1, Jul 2009 BUN 49 (H) 10 - 20 mg/dL [facility] LABORATORY Creatinine 1.43 0.80 - [...] Anion Gap 15 5 - 15 mmol/L [facility] [...] Organization Address City/State/[place] [address] Magnesium (12/11/2021 4:28 AM EDT) P athologist Signature Magnesium 1.04 0.69 - 1.07 [facility] mmol/L [facility] LABORATORY Specimen Anatomical Collection Method Collection Time Receive d Time (Source) Location / / Volume Laterality Blood 12/11/2021 4:28 AM 2 4:37 EDT AM EDT Resulting Agency Comment Spec In Lab Iker Cuevas MD CHEMISTRY ORDERABLES Performing Organization Address City/State/ZIP Code Phon e Number [address] POCT Glucose (12/11/2021 3:58 AM EDT) athologist Signature POC Glucose 189 65 - 199 [facility] mg/dL [facility] Comment: Supplemental ranges: <140 mg/dL before meals <180 mg/dL all other times of the day Specimen Anatomical Collection Method Collection Time Receive d Time (Source) Location / / Volume Laterality Blood 12/11/2021 3:58 AM 2 3:58 EDT AM EDT Iker Cuevas MD POINT OF CARE TEST ORDERABLE S Performing Organization Address City/State/[place] [address] (ABNORMAL) POCT Glucose (12/10/2021 11:45 PM EDT) P athologist Signature POC Glucose 205 (H) 65 - 199 [facility] mg/dL [facility] Comment: Supplemental ranges: <140 mg/dL before meals <180 mg/dL all other times of the day Specimen Anatomical Collection Method Collection Time Receive d Time (Source) Location / / Volume Laterality Blood 12/10/2021 11:45 12/10/2021 PM EDT 11:45 PM EDT Iker Cuevas MD POINT OF CARE TEST ORDERABLE S Performing Organization Address City/State/[place] [address] (ABNORMAL) POCT Glucose (12/10/2021 7:54 PM EDT) P athologist Signature POC Glucose 225 (H) 65 - 199 [facility] mg/dL [facility] Comment: Supplemental ranges: <140 mg/dL before meals <180 mg/dL all other times of the day Specimen Anatomical Collection Method Collection Time Receive d Time (Source) Location / / Volume Laterality Blood 12/10/2021 7:54 PM 2 7:54 EDT PM EDT Iker Cuevas MD POINT OF CARE TEST ORDERABLE S Performing Organization Address City/[facility]/[place] [address] Potassium (12/10/2021 7:46 PM EDT) athologist Signature Potassium 4.2 3.5 - 5.0 [facility] mmol/L [facility] Comment: Please note: ??Patients with [...] Cuevas MD CHEMISTRY ORDERABLES Performing Organization Address City/[facility]/[place] [address] (ABNORMAL) Basic Metabolic Panel (non-fasting) (12/10/2021 6:12 PM EDT) athologist Signature Glucose Lvl 246 (H) 65 - 199 [facility] mg/dL [facility] Comment: Diabetes: >=200 mg/dL plus symp toms BUN 50 (H) 10 - 20 mg/dL [facility] LABORATORY Creatinine 1.39 0.80 - 1.50 mg/dL [facility] OCK [facility] LABORATORY Sodium 138 135 - 145 [...] Gap 16 (H) 5 - 15 mmol/L [facility] Organization Address City/State/[place] [address] POCT Glucose (12/10/2021 4:59 PM EDT) P athologist Signature POC Glucose 158 65 - 199 [facility] mg/dL [facility] Comment: Supplemental ranges: <140 mg/dL before meals <180 mg/dL all other times of the day Specimen Anatomical Collection Method Collection Time Receive d Time (Source) Location / / Volume Laterality Blood 12/10/2021 4:59 PM 4:59 EDT PM EDT Iker Cuevas MD POINT OF CARE TEST ORDERABLE S Performing Organization Address City/[facility]/ZIP Code Phon e Number [address] (ABNORMAL) POCT Glucose (12/10/2021 12:43 PM EDT) P athologist Signature POC Glucose 241 (H) 65 - 199 [facility] mg/dL [facility] Comment: Supplemental ranges: <140 mg/dL before meals <180 mg/dL all other times of the day Specimen Anatomical Collection Method Collection Time Receive d Time (Source) Location / / Volume Laterality Blood 12/10/2021 12:43 12/10/2021 PM EDT 12:43 PM EDT Iker Cuevas MD POINT OF CARE TEST ORDERABLE S Performing Organization Address [facility] [place] [address] EKG 12 Lead (12/10/2021 11:17 AM EDT) Component Value Ref Range Test Analysis Performed Pathologis t Method Time At Signature Ventricular rate 62 BPM MUSE SYSTEM Atrial Rate 62 BPM MUSE SYSTEM P-R Interval 142 ms MUSE SYSTEM QRS Duration 100 ms MUSE SYSTEM Q-T Interval 434 ms MUSE SYSTEM QTC Calculated 440 ms MUSE SYSTEM (Bezet) Calculated P Elbert 34 degrees MUSE SYSTEM Calculated R Elbert -39 degrees MUSE SYSTEM Calculated T Elbert 92 degrees MUSE SYSTEM INTERPRETATION Normal sinus rhythm MUSE SYSTEM Left axis deviation Minimal voltage criteria for LVH, may be normal variant ( [place] product ) Cannot rule out Inferior infarct [...] SYSTEM - 12/10/2021 12:04 PM E DT ?[facility] ? Cardiac Cathete rization/Intervention Report ? Patient Name: Don Fatima. ? Procedure Date: 12/10/2021 ? A #: [id number] ? Primary Physician: Vitaliy Nobles ? Case #: [id number] ? File Name: [id number] ? Catheterization Order Number: [id number] ? [facility] ? Final Report [place], [place] ? Patient Name: ? Don E. Stewa rt ? ID#: ?[id number] ? : ?1945 ? Procedure Date: ? December 10, 2021 ? Case #: ? [id number] ? Room: ? 1 ? Case Physician: [...] was ?designated as ASA Class III. e [facility] clinical frailty scale is 5: Mildly [...] Urgent. The indication for ?the cardiac cath technician visit is ACS great er than [...] ?3.75 guiding catheter and a 3.5 Fr [place] [facility] [place] 20 Mhz using Manual ?pullback. ??Imaging [...] ?3.75 guiding catheter and a 3.5 Fr [place] [facility] [place] 20 Mhz using Manual ?pullback. ??Imaging [...] ?modification of this regimen. C onsult [facility] Interventional Cardiology for ?questions. ?The 1 year bleeding risk as nusrat culated by the PRECISE DAPT score is High ?risk. ?High Bleeding Risk - Anticoagul ation and DAPT: ?- ??Assess ischemic and bleedin g risks using validated risk predictors ?(e.g. CHADS2-VASC, HAS-BLED, [place] ECISE DAPT, DAPT Score) ?- ??Keep anticoagulant [...] Procedure Note Vitaliy Nobles MD - 01/14/2022 [facility] Cardiac Catheterization/Intervention Re port Patient Name: Don Fatima Procedure Date: 12/10/2021 A #: [id number] Primary Physician: Vitaliy Nobles Case #: [id number] File Name: [id number] Catheterization Order Number: [id number] [facility] Final Report [place], [place] Patient Name: Don Fatima ID#: [...] Urgent. The indication for the cardiac cath technician visit is ACS greater than 24 [...] and a 3.5 Fr [place] [facility] [place] 20 Mhz using Manual pullback. Imaging [...] and a 3.5 Fr [place] [facility] [place] 20 Mhz using Manual pullback. Imaging [...] require modification of this regimen. Consult D [facility] Interventional Cardiology for questions. The 1 year [...] POC Glucose 262 (H) 65 - 199 [facility] mg/dL [facility] Comment: Supplemental ranges: <140 mg/dL before meals <180 mg/dL all other times of the day Specimen Anatomical Collection Method Collection Time Receive d Time (Source) Location / / Volume Laterality Blood 12/10/2021 10:30 12/10/2021 AM EDT 10:30 AM EDT Iker Cuevas MD POINT OF CARE TEST ORDERABLE S Performing Organization Address City/State/[place] [address] (ABNORMAL) POCT Glucose (12/10/2021 9:48 AM EDT) athologist Signature POC Glucose 279 (H) 65 - 199 [facility] mg/dL [facility] Comment: Supplemental ranges: <140 mg/dL before meals <180 mg/dL all other times of the day Specimen Anatomical Collection Method Collection Time Receive d Time (Source) Location / / Volume Laterality Blood 12/10/2021 9:48 AM 2 9:48 EDT AM EDT Iker Cuevas MD POINT OF CARE TEST ORDERABLE S Performing Organization Address City/State/[place] [address] (ABNORMAL) POCT Glucose (12/10/2021 9:07 AM EDT) P athologist Signature POC Glucose 268 (H) 65 - 199 [facility] mg/dL [facility] Comment: Supplemental ranges: <140 mg/dL before meals <180 mg/dL all other times of the day Specimen Anatomical Collection Method Collection Time Receive d Time (Source) Location / / Volume Laterality Blood 12/10/2021 9:07 AM 2 9:07 EDT AM EDT Iker Cuevas MD POINT OF CARE TEST ORDERABLE S Performing Organization Address City/[facility]/[place] [address] (ABNORMAL) Point of Care Blood Gas Historical (12/10/2021 9:04 AM EDT) Patholo gist Method Time Signature POC pH 7.40 7.35 - [facility] 7.45 [facility] LABORATORY POC PCO2 40 35 - 45 [facility] LABORATORY POC PO2 63 (L) 85 - 104 [facility] LABORATORY POC Base Excess 0.0 -3.0 - 3.0 [facility] K mmol/L [facility] LABORATORY POC HCO3 24.8 20.0 - [facility] 26.0 [facility] mmol/ HOSPITAL LABORATORY POC Sodium 143 135 - 145 [facility] mmol/L [facility] LABORATORY POC Potassium 3.7 3.5 - 5.0 [facility] mmol/L [facility] LABORATORY POC Ionized Ca 1.07 (L) 1.15 - [facility] 1.33 [facility] mmol/[facility] LABORATORY POC Hematocrit 30.0 (L) 40.0 - [facility] 51.0 % [facility] POC Calc Hgb 10.2 (L) 13.7 - [facility] 17.5 g/dL [facility] LABORATORY Comment: The calculation of hemoglobin f rom hematocrit assumes a normal MCHC. POC Bgas Loc CC LAB [facility] LABORATORY Specimen Anatomical Collection Method Collection Time Receive d Time (Source) Location / / Volume Laterality Blood 12/10/2021 9:04 AM 2 EDT 12:00 PM EDT Ifeanyi Truong MD CHEMISTRY ORDERABLES Performing Organization Address City/[facility]/[place] [address] (ABNORMAL) POCT Glucose (12/10/2021 7:19 AM EDT) athologist Signature POC Glucose 274 (H) 65 - 199 [facility] mg/dL [facility] Comment: Supplemental ranges: <140 mg/dL before meals <180 mg/dL all other times of the day Specimen Anatomical Collection Method Collection Time Receive d Time (Source) Location / / Volume Laterality Blood 12/10/2021 7:19 AM 2 7:19 EDT AM EDT Iker Cuevas MD POINT OF CARE TEST ORDERABLE S Performing Organization Address City/[facility]/[place] [address] Heparin (unfractionated) Level (12/10/2021 4:25 AM EDT) athologist Signature Heparin UFH 0.69 IU/mL [facility] LABORATORY Comment: Heparin (anti-Xa) levels should be [...] Organization Address City/State/[place] [address] (ABNORMAL) Differential, Automated (12/10/2021 4:25 AM EDT) [facility] Method Time Signature Neutrophils % 79.8 % [facility] LABORATORY Neutr Abs (ANC) 7.47 (H) 1.70 - [facility] 6.10 [facility] x10(3)/[facility] LABORATORY Lymphocytes % 10.6 % [facility] LABORATORY Lymphocytes Abs 1.0 0.9 - 3.2 [facility] x10(3)/[facility] LABORATORY Monocytes % 8.4 % [facility] LABORATORY Monocyte Abs 0.8 0.3 - 0.9 [facility] x10(3)/[facility] LABORATORY Eosinophils % 0.6 % [facility] LABORATORY Eosinophils Abs 0.1 0.0 - 0.4 [facility] x10(3)/[facility] LABORATORY Basophils % 0.2 % [facility] LABORATORY Basophils Abs 0.0 0.0 - 0.1 [facility] x10(3)/[facility] LABORATORY Immature Gran % 0.40 [...] Melisa Gran Abs 0.04 0.00 - 0.04 x10(3)/[facility] LABORATORY Specimen Anatomical Collection Method Collection Time Receive d Time (Source) Location / / Volume Laterality Blood 12/10/2021 4:25 AM 2 4:34 EDT AM EDT Resulting Agency Comment Spec In Lab [facility] HEMATOLOGY ORDERABLES Performing Organization Address City/State/[place] [address] (ABNORMAL) Hemogram (12/10/2021 4:25 AM EDT) Analysis Performed At Patho logist Time Signature WBC 9.4 4.0 - 9.5 [facility](3[facility] LABORATORY RBC 3.81 (L) 4.58 - [facility] 5.54 [facility] x10(6)/[facility] LABORATORY Hemoglobin 11.1 (L) 13.7 - [facility] 16.5 g/dL [facility] LABORATORY Hematocrit 34.0 (L) 40.5 - [facility] 48.5 % [facility] LABORATORY MCV 89.2 82.9 - [facility] 93.1 [facility] LABORATORY MCH 29.1 27.5 - [facility] 32.1 pg [facility] LABORATORY MCHC 32.6 32.0 - [facility] 35.7 g/dL [facility] LABORATORY Platelets 183 145 - 357 [facility] x10(3)/[facility] LABORATORY RDWSD 49.9 (H) 36.0 - [facility] RYAN 45.0 [facility] LABORATORY RDWCV 15.2 (H) 11.4 - [facility] 13.8 % [facility] LABORATORY MPV 9.8 7.6 - 12.9 [facility] LABORATORY nRBC % Auto 0.0 % [facility] LABORATORY nRBC Abs Auto 0.000 0.000 - [facility] RYAN 0.000 [facility] x10(3)/[facility] LABORATORY Specimen Anatomical Collection Method Collection Time Receive d Time (Source) Location / / Volume Laterality Blood 12/10/2021 4:25 AM 2 4:34 EDT AM EDT Resulting Agency Comment Spec In Lab [facility] HEMATOLOGY ORDERABLES Performing Organization Address City/State/[place] [address] (ABNORMAL) Prothrombin Time (12/10/2021 4:25 AM EDT) athologist Signature PT 20.0 (H) 9.4 - 12.5 [facility] LABORATORY INR 1.7 [place] [...] Organization Address City/State/[place] [address] (ABNORMAL) BMP w/fasting Glucose (12/10/2021 4:25 AM EDT) athologist Signature Glucose 210 (H) 65 - 99 [facility] Fasting mg/dL [facility] LABORATORY Comment: ?Fasting* Glucose Interpretive C [...] of Diabetes Mellitus, Position Statement from the [place] [employer]. ??Diabete s Care, Volume 33, Supplement 1, Jul 2009 BUN 54 (H) 10 - 20 mg/dL [facility] LABORATORY Creatinine 1.52 (H) 0.80 [...] 15 mmol/L [facility] LABORATORY Calcium 8.0 (L) 8.5 [...] Organization Address City/State/[place] [address] Magnesium (12/10/2021 4:25 AM EDT) athologist Signature Magnesium 0.95 0.69 - 1.07 [facility] mmol/L [facility] LABORATORY Specimen Anatomical Collection Method Collection Time Receive d Time (Source) Location / / Volume Laterality Blood 12/10/2021 4:25 AM 2 4:34 EDT AM EDT Resulting Agency Comment Spec In Lab Iker Cuevas MD CHEMISTRY ORDERABLES Performing Organization Address City/State/[place] [address] POCT Glucose (12/10/2021 1:58 AM EDT) athologist Signature POC Glucose 164 65 - 199 [facility] mg/dL [facility] LABOR[facility] Comment: Supplemental ranges: <140 mg/dL before meals <180 mg/dL all other times of the day Specimen Anatomical Collection Method Collection Time Receive d Time (Source) Location / / Volume Laterality Blood 12/10/2021 1:58 AM 2 1:58 EDT AM EDT Iker Cuevas MD POINT OF CARE TEST ORDERABLE S Performing Organization Address City/State/[place] [address] (ABNORMAL) POCT Glucose (12/09/2021 9:02 PM EDT) athologist Signature POC Glucose 313 (H) 65 - 199 [facility] mg/dL [facility] LAB[facility] Comment: Supplemental ranges: <140 mg/dL before meals <180 mg/dL all other times of the day Specimen Anatomical Collection Method Collection Time Receive d Time (Source) Location / / Volume Laterality Blood 12/09/2021 9:02 PM 2 9:02 EDT PM EDT Iker Cuevas MD POINT OF CARE TEST ORDERABLE S Performing Organization Address City/State/[place] [address] Heparin (unfractionated) Level (12/09/2021 7:30 PM EDT) athologist Signature Heparin UFH 0.48 IU/[facility] Comment: Heparin (anti-Xa) levels should be [...] Organization Address City/State/[place] [address] (ABNORMAL) Basic Metabolic Panel (non-fasting) (12/09/2021 7:30 PM EDT) P athologist Signature Glucose Lvl 372 (H) 65 - 199 [facility] mg/dL [facility] Comment: Diabetes: >=200 mg/dL plus symp toms BUN 56 (H) 10 - 20 mg/dL [facility] Creatinine 1.75 (H) 0.80 [...] Organization Address City/State/[place] [address] (ABNORMAL) POCT Glucose (12/09/2021 6:34 PM EDT) P athologist Signature POC Glucose 408 (H) 65 - 199 [facility] mg/dL [facility] Comment: Supplemental ranges: <140 mg/dL before meals <180 mg/dL all other times of the day Specimen Anatomical Collection Method Collection Time Receive d Time (Source) Location / / Volume Laterality Blood 12/09/2021 6:34 PM 2 6:34 EDT PM EDT Iker Cuevas MD POINT OF CARE TEST ORDERABLE S Performing Organization Address City/State/[place] [address] (ABNORMAL) POCT Glucose (12/09/2021 6:32 PM EDT) athologist Signature POC Glucose 356 (H) 65 - 199 [facility] mg/dL [facility] Comment: Supplemental ranges: <140 mg/dL before meals <180 mg/dL all other times of the day Specimen Anatomical Collection Method Collection Time Receive d Time (Source) Location / / Volume Laterality Blood 12/09/2021 6:32 PM 2 6:32 EDT PM EDT Iker Cuevas MD POINT OF CARE TEST ORDERABLE S Performing Organization Address City/State/[place] [address] (ABNORMAL) POCT Glucose (12/09/2021 4:19 PM EDT) athologist Signature POC Glucose 347 (H) 65 - 199 [facility] Comment: Supplemental ranges: <140 mg/dL before meals <180 mg/dL all other times of the day Specimen Anatomical Collection Method Collection Time Receive d Time (Source) Location / / Volume Laterality Blood 12/09/2021 4:19 PM 2 4:19 EDT PM EDT Iker Cuevas MD POINT OF CARE TEST ORDERABLE S Performing Organization Address City/State/[place] [address] Heparin (unfractionated) Level (12/09/2021 1:29 PM EDT) athologist Signature Heparin UFH 0.42 IU/mL [facility] Comment: Heparin (anti-Xa) levels should be [...] Cuevas MD HEMATOLOGY ORDERABLES Performing Organization Address City/[facility]/[place] [address] (ABNORMAL) POCT Glucose (12/09/2021 12:02 PM EDT) P athologist Signature POC Glucose 235 (H) 65 - 199 [facility] mg/dL [facility] Comment: Supplemental ranges: <140 mg/dL before meals <180 mg/dL all other times of the day Specimen Anatomical Collection Method Collection Time Receive d Time (Source) Location / / Volume Laterality Blood 12/09/2021 12:02 12/09/2021 PM EDT 12:02 PM EDT Iker Cuevas MD POINT OF CARE TEST ORDERABLE S Performing Organization Address City/[facility]/[place] [address] (ABNORMAL) POCT Glucose (12/09/2021 9:44 AM EDT) P athologist Signature POC Glucose 214 (H) 65 - 199 [facility] mg/dL [facility] Comment: Supplemental ranges: <140 mg/dL before meals <180 mg/dL all other times of the day Specimen Anatomical Collection Method Collection Time Receive d Time (Source) Location / / Volume Laterality Blood 12/09/2021 9:44 AM 9:44 EDT AM EDT Iker Cuevas MD POINT OF CARE TEST ORDERABLE S Performing Organization Address City/[facility]/[place] [address] EKG 12 Lead (12/09/2021 7:57 AM EDT) Component Value Ref Range Test Analysis Performed Pathologis t Method Time At Signature Ventricular rate 101 BPM MUSE SYSTEM Atrial Rate 101 BPM MUSE SYSTEM P-R Interval 150 ms MUSE SYSTEM QRS Duration 112 ms MUSE SYSTEM Q-T Interval 364 ms MUSE SYSTEM QTC Calculated 471 ms MUSE SYSTEM (Bezet) Calculated P Elbert 59 degrees MUSE SYSTEM Calculated R Elbert -42 degrees MUSE SYSTEM Calculated T Elbert 102 degrees MUSE SYSTEM INTERPRETATION Sinus tachycardia Occasional Premature ventricular com plexes MUSE SYSTEM Left axis deviation 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) Abnormal ECG When compared with ECG of 08-DEC-2021 16:40, Premature ventricular complexes are now Present Confirmed by MD Jim, Yoon ([id number]) on 12/10/2021 4:55:06 PM Specimen Anatomical Collection Method Collection Time Receive d Time (Source) Location / / Volume Laterality 12/09/2021 7:57 AM 2 4:55 EDT PM EDT Iker Cuevas MD ECG ORDERABLES Performing Organization Address City/State/ZIP Code Phon e Number MUSE SYSTEM (ABNORMAL) POCT Glucose (12/09/2021 7:28 AM EDT) P athologist Signature POC Glucose 263 (H) 65 - 199 [facility] mg/dL [facility] Comment: Supplemental ranges: <140 mg/dL before meals <180 mg/dL all other times of the day Specimen Anatomical Collection Method Collection Time Receive d Time (Source) Location / / Volume Laterality Blood 12/09/2021 7:28 AM 7:28 EDT AM EDT Iker Cuevas MD POINT OF CARE TEST ORDERABLE S Performing Organization Address City/State/[place] [address] (ABNORMAL) Hemoglobin A1c (12/09/2021 6:18 AM EDT) Analysis Performed At Patho logist Time Signature Hemoglobin A1C 7.4 (H) 4.3 - 5.6 [facility] [...] Avg Gluc See note mg/dL [facility] Comment: Estimated Average Glucose [...] with hemoglobinopathies. Additional resources are available on [facility] ADA website. Macario HAMMOND, Ruthann J, Deysi R, et al. ??Tr anslating the A1C assay into estimated average glucose values. ??Diabetes Care 2008:31(8):1788-0202. Specimen Anatomical Collection Method Collection Time Receive d Time (Source) Location / / Volume Laterality Blood Venous Draw / 12/09/2021 6:18 AM 12/10/19 22 Unknown EDT 12:24 PM EDT Resulting Agency Comment Spec In Lab Migdalia BROWN CHEMISTRY ORDERABLES Performing Organization Address City/State/[place] [address] (ABNORMAL) Prothrombin Time (12/09/2021 6:18 AM EDT) athologist Signature PT 26.6 (H) 9.4 - 12.5 [facility] LABORATORY INR 2.3 [place] [...] Migdalia BROWN HEMATOLOGY ORDERABLES Performing Organization Address City/[facility]/[place] [address] Heparin (unfractionated) Level (12/09/2021 6:18 AM EDT) athologist Signature Heparin UFH 0.24 IU/mL [facility] Comment: Heparin (anti-Xa) levels should be [...] Cuevas MD HEMATOLOGY ORDERABLES Performing Organization Address City/[facility]/[place] [address] (ABNORMAL) Differential, Automated (12/09/2021 6:18 AM EDT) [facility] gist Method Time Signature Neutrophils % 91.5 % [facility] Neutr Abs (ANC) 15.78 (H) 1.70 - [facility] 6.10 [facility] x10(3)/[facility] LABORATORY Lymphocytes % 2.9 % [facility]OR[facility]ORY Lymphocytes Abs 0.5 (L) 0.9 - 3.2 [facility] x10(3)/[facility] LABORATORY Monocytes % 4.9 % [facility]ORY Monocyte Abs 0.8 0.3 - 0.9 [facility] x10(3)/[facility] LABORATORY Eosinophils % 0.0 % [facility]ORY Eosinophils Abs 0.0 0.0 - 0.4 [facility] x10(3)/[facility] LABORATORY Basophils % 0.2 % [facility]ORY Basophils Abs 0.0 0.0 - 0.1 [facility] x10(3)/[facility] LABORATORY Immature Gran % 0.50 [...] Abs 0.09 (H) 0.00 - 0.04 x10(3)/[facility] LABORATORY Specimen Anatomical Collection Method Collection Time Receive d Time (Source) Location / / Volume Laterality Blood 12/09/2021 6:18 AM 6:33 EDT AM EDT Resulting Agency Comment Spec In Lab Morgan BROWN HEMATOLOGY ORDERABLES Performing Organization Address City/State/ZIP Code Phon e Number [place] [id number] [address] (ABNORMAL) Hemogram (12/09/2021 6:18 AM EDT) Analysis Performed At Patho logist Time Signature WBC 17.2 (H) 4.0 - 9.5 [facility] x10(3)/[facility] LABORATORY RBC 4.32 (L) 4.58 - [facility] 5.54 [facility] x10(6)/[facility] LABORATORY Hemoglobin 12.6 (L) 13.7 - [facility] 16.5 g/dL [facility] Hematocrit 38.9 (L) 40.5 - [facility] 48.5 % [facility] MCV 90.0 82.9 - [facility] 93.1 [facility] LABORATORY MCH 29.2 27.5 - [facility] 32.1 pg [facility] MCHC 32.4 32.0 - [facility] 35.7 g/dL [facility] Platelets 193 145 - 357 [facility] x10(3)/[facility] LABORATORY RDWSD 50.4 (H) 36.0 - [facility] 45.0 [facility] LABORATORY RDWCV 15.2 (H) 11.4 - [facility] 13.8 % [facility] MPV 9.5 7.6 - 12.9 [facility] LABORATORY nRBC % Auto 0.0 % [facility] LABORATORY nRBC Abs Auto 0.000 0.000 - [facility] 0.000 [facility] x10(3)/[facility] LABORATORY Specimen Anatomical Collection Method Collection Time Receive d Time (Source) Location / / Volume Laterality Blood 12/09/2021 6:18 AM 2 6:33 EDT AM EDT Resulting Agency Comment Spec In Lab Morgan BROWN HEMATOLOGY ORDERABLES Performing Organization Address City/State/[place] [address] Lipid Panel (Reflex Direct LDL) (12/09/2021 6:18 AM EDT) P athologist Signature Chol, Total 105 mg/dL [facility] Comment: Lower Risk: <200 mg/dL Average Risk: 200-239 mg/dL Higher Risk: >qd=255 mg/dL Triglycerides 133 mg/dL [facility] Comment: Average Risk/Lower Risk: <150 mg/dL Borderline High Risk: 150-199 mg/dL High Risk: 200-499 mg/dL Very High Risk: >ww=282 mg/dL HDL 42 mg/dL [facility] Comment: Males: ?? Higher Risk: <40 mg/dL Females: ?? Higher Risk: <50 mg/dL LDL Cholesterol 36 mg/dL [facility] Comment: Lowest Risk: <100 mg/dL Lower Risk: 100-129 mg/dL Borderline High Risk: 130-159 mg/dL High Risk: 160-189 mg/dL Very High Risk: >tq=426 mg/dL Chol/HDL Ratio 2.5 ratio [facility] Lipid Interpretation See Note [facility] Comment: Lipid management should be guided by a p atient? s ASCVD risk, goals and preferences. ACC/AHA Guidelines recommend high intens ity statin if clinical ASCVD or LDL greater than or equal to 190 mg/dL. http://[email or web address] IDE/GKG-GWM-Lpjvrmtoz Adults aged 40-75 with LDL 70-189 mg/dL should have their 10 year ASCVD risk estimated with the ACC/AHA ASCVD risk es timator http://tools.acc.org/GXZCX-Ozuw-Nspkvumv r/ Statin should be discussed if risk [...] Organization Address City/State/[place] [address] TSH (12/09/2021 6:18 AM EDT) athologist Signature TSH 1.60 0.27 - 4.20 [facility] mcIU/mL [facility] Comment: Reference Interval (mcIU/mL): Females: ??First Trimester: 0.23-3.88 ??Second Trimester: 0.22-3.90 ??Third Trimester: 0.44-4.66 Specimen Anatomical Collection Method Collection Time Receive d Time (Source) Location / / Volume Laterality Blood 12/09/2021 6:18 AM 2 6:33 EDT AM EDT Resulting Agency Comment Spec In Lab Iker Cuevas MD CHEMISTRY ORDERABLES Performing Organization Address City/[facility]/ZIP Code Phon e Number [address] Hepatic Function Panel (12/09/2021 6:18 AM EDT) athologist [facility] Total Protein 7.3 6.1 - 8.0 [facility]YAN g/dL [facility] Albumin 4.2 3.2 - 5.2 [facility] g/dL [facility] AST 25 0 - 39 [facility] unit/L [facility] ALT 15 0 - 55 [facility] unit/L [facility] Alk Phos 75 40 - 130 [facility] unit/L [facility] Total 1.1 0.2 - 1.3 [facility] Bilirubin mg/dL [facility] Bili, Direct 0.2 0.0 - 0.3 [facility] mg/dL [facility] Specimen Anatomical Collection Method Collection Time Receive d Time (Source) Location / / Volume Laterality Blood 12/09/2021 6:18 AM 2 6:33 EDT AM EDT Resulting Agency Comment Spec In Lab Iker Cuevas MD CHEMISTRY ORDERABLES Performing Organization Address City/[facility]/ZIP [facility] [place] [address] (ABNORMAL) BMP w/fasting Glucose (12/09/2021 6:18 AM EDT) athologist Signature Glucose 235 (H) 65 - 99 [facility] Fasting mg/dL [facility] Comment: ?Fasting* Glucose Interpretive C [...] of Diabetes Mellitus, Position Statement from the [place] [employer]. ??Diabete s Care, Volume 33, Supplement 1, Jul 2009 BUN 49 (H) 10 - 20 mg/dL [facility] Creatinine 1.33 0.80 - [...] Address City/State/ZIP Code Phon e Number [address] Magnesium (12/09/2021 6:18 AM EDT) athologist Signature Magnesium 0.81 0.69 - 1.07 [facility] mmol/L [facility] Specimen Anatomical Collection Method Collection Time Receive d Time (Source) Location / / Volume Laterality Blood 12/09/2021 6:18 AM 2 6:33 EDT AM EDT Resulting Agency Comment Spec In Lab Iker Cuevas MD CHEMISTRY ORDERABLES Performing Organization Address City/[facility] [place] [address] (ABNORMAL) Troponin (12/09/2021 6:18 AM EDT) athologist Signature Troponin-T 1.13 (H) 0.00 - [facility] 0.00 ng/mL [facility] Comment: The 99th percentile for Troponin T is le ss than 0.01 ng/mL, any detectable cTnT concentration using this assay should be considered elevated. According to the third universal definit ion of myocardial infarction the following criteria with a clinical prese ntation consistent with acute myocardial ischemia meets the diagnosis for a myocardial infarction (HI). Detection of a rise and/or fall of [...] additional sample may be indicated. Reference: Third [place] Definition of Myocardial Infarction. Journal of the [place] [employer] 2012;60:1581-98 Specimen Anatomical Collection Method Collection Time Receive d Time (Source) Location / / Volume Laterality Blood 12/09/2021 6:18 AM 6:33 EDT AM EDT Resulting Agency Comment Spec In Lab Iker Cuevas MD CHEMISTRY ORDERABLES Performing Organization Address City/State/ZIP Code Phon e Number [place] [id number] LAB[address] Drive XR Chest One View [...] who have questions please contact the health home care assistant that requested your imaging first. ? Electronically signed by: Yoselin White, [facility] ([phone]), at 12/09/2021 5:35 AM Narrative 12/09/2021 5:35 [...] ho have questions please contact the health home care assistant that requested your imaging first. Electronically signed by: Yoselin White, [facility] ([phone]), at 12/09/2021 5:35 AM Amber Sanches MD IMG DX ORDERABLES (ABNORMAL) BLOOD GAS 2 ARTERIAL (12/09/2021 5:14 AM EDT) Analysis Performed At [facility] Time Signature pH Art 7.43 7.35 - [facility] 7.45 [facility] pCO2 Art 36 35 - 45 [facility] LABORATORY pO2 Art 67 (L) 85 - 104 [facility] LABORATORY HCO3 Art 23.4 20.0 - [facility] 26.0 [facility] mmol/L [facility] BE Art -0.9 -3.0 - 3.0 [facility] mmol/L [facility] Hgb Blood Gas 13.2 (L) 13.7 - [facility] 16.5 g/dL [facility] O2HB Art 91.3 (L) 94.0 - [facility] 97.0 % [facility] COHB Art 0.4 % WHITE [...] WB 2.7 (H) 0.5 - 2.2 mmol/L [facility] FIO2 Art 35 % [facility] Flow Art 8.0 LPM [facility] PF Ratio Art 191 [facility] Specimen Anatomical Collection Method Collection Time Receive d Time (Source) Location / / Volume Laterality Blood 12/09/2021 5:14 AM 5:14 EDT AM EDT Iker Cuevas MD CHEMISTRY ORDERABLES Performing Organization Address City/State/[place] [address] POCT Glucose (12/09/2021 4:46 AM EDT) athologist Signature POC Glucose 198 65 - 199 [facility] mg/dL [facility] Comment: Supplemental ranges: <140 mg/dL before meals <180 mg/dL all other times of the day Specimen Anatomical Collection Method Collection Time Receive d Time (Source) Location / / Volume Laterality Blood 12/09/2021 4:46 AM 2 4:46 EDT AM EDT Iker Cuevas MD POINT OF CARE TEST ORDERABLE S Performing Organization Address City/[facility]/[place] [address] (ABNORMAL) POCT Glucose (12/09/2021 3:01 AM EDT) athologist Signature POC Glucose 225 (H) 65 - 199 [facility] mg/dL [facility] Comment: Supplemental ranges: <140 mg/dL before meals <180 mg/dL all other times of the day Specimen Anatomical Collection Method Collection Time Receive d Time (Source) Location / / Volume Laterality Blood 12/09/2021 3:01 AM 2 3:01 EDT AM EDT Iker Cuevas MD POINT OF CARE TEST ORDERABLE S Performing Organization Address City/[facility]/[place] [address] (ABNORMAL) POCT Glucose (12/08/2021 10:55 PM EDT) athologist Signature POC Glucose 327 (H) 65 - 199 [facility] mg/dL [facility] Comment: Supplemental ranges: <140 mg/dL before meals <180 mg/dL all other times of the day Specimen Anatomical Collection Method Collection Time Receive d Time (Source) Location / / Volume Laterality Blood 12/08/2021 10:55 12/08/2021 PM EDT 10:55 PM EDT Iker Cuevas MD POINT OF CARE TEST ORDERABLE S Performing Organization Address City/State/[place] [address] Heparin (unfractionated) Level (12/08/2021 10:03 PM EDT) athologist Signature Heparin UFH 0.18 IU/mL [facility] LABORATORY Comment: Heparin (anti-Xa) levels should be [...] Organization Address City/State/[place] [address] (ABNORMAL) Troponin (12/08/2021 10:03 PM EDT) athologist Signature Troponin-T 0.92 (H) 0.00 - [facility] 0.00 ng/mL [facility] Comment: The 99th percentile for Troponin T is le ss than 0.01 ng/mL, any detectable cTnT concentration using this assay should be considered elevated. According to the third universal definit ion of myocardial infarction the following criteria with a clinical prese ntation consistent with acute myocardial ischemia meets the diagnosis for a myocardial infarction (HI). Detection of a rise and/or fall of [...] additional sample may be indicated. Reference: Third [place] Definition of Myocardial Infarction. Journal of the [place] [employer] 2012;60:1581-98 Specimen Anatomical Collection Method Collection Time Receive d Time (Source) Location / / Volume Laterality Blood 12/08/2021 10:03 12/08/2021 PM EDT 10:31 PM EDT Resulting Agency Comment Spec In Lab Iker Cuevas MD CHEMISTRY ORDERABLES Performing Organization Address City/[facility]/[place] [address] (ABNORMAL) POCT Glucose (12/08/2021 8:22 PM EDT) athologist Signature POC Glucose 429 (H) 65 - 199 [facility] Comment: Supplemental ranges: <140 mg/dL before meals <180 mg/dL all other times of the day Specimen Anatomical Collection Method Collection Time Receive d Time (Source) Location / / Volume Laterality Blood 12/08/2021 8:22 PM 8:22 EDT PM EDT Iker Cuevas MD POINT OF CARE TEST ORDERABLE S Performing Organization Address City/State/[place] [address] (ABNORMAL) POCT Glucose (12/08/2021 7:06 PM EDT) P athologist Signature POC Glucose 442 (H) 65 - 199 [facility] mg/dL [facility] Comment: Supplemental ranges: <140 mg/dL before meals <180 mg/dL all other times of the day Specimen Anatomical Collection Method Collection Time Receive d Time (Source) Location / / Volume Laterality Blood 12/08/2021 7:06 PM 2 7:06 EDT PM EDT Iker Cuevas MD POINT OF CARE TEST ORDERABLE S Performing Organization Address City/State/ZIP Code Phon e Number [address] Magnesium (12/08/2021 6:02 PM EDT) athologist Signature Magnesium 0.86 0.69 - 1.07 [facility] mmol/L [facility] Specimen Anatomical Collection Method Collection Time Receive d Time (Source) Location / / Volume Laterality Blood 12/08/2021 6:02 PM 2 6:36 EDT PM EDT Resulting Agency Comment Spec In Lab Iker Cuevas MD CHEMISTRY ORDERABLES Performing Organization Address City/[facility]/[place] [address] (ABNORMAL) Basic Metabolic Panel (non-fasting) (12/08/2021 6:02 PM EDT) athologist Signature Glucose Lvl 392 (H) 65 - 199 [facility] mg/dL [facility] Comment: Diabetes: >=200 mg/dL plus symp toms BUN 41 (H) 10 - 20 mg/dL [facility]ORY Creatinine 1.44 0.80 - [...] Gap 16 (H) 5 - 15 mmol/L [facility] Organization Address City/State/[place] [address] (ABNORMAL) Differential, Automated (12/08/2021 6:02 PM EDT) [facility] Method Time Signature Neutrophils % 89.5 % [facility] LABORATORY Neutr Abs (ANC) 13.97 (H) 1.70 - [facility] 6.10 [facility] x10(3)/[facility] LABORATORY Lymphocytes % 3.7 % [facility] LABORATORY Lymphocytes Abs 0.6 (L) 0.9 - 3.2 [facility] x10(3)/[facility] LABORATORY Monocytes % 6.1 % [facility] LABORATORY Monocyte Abs 1.0 (H) 0.3 - 0.9 [facility] x10(3)/[facility] LABORATORY Eosinophils % 0.0 % [facility] LABORATORY Eosinophils Abs 0.0 0.0 - 0.4 [facility] x10(3)/[facility] LABORATORY Basophils % 0.2 % [facility] LABORATORY Basophils Abs 0.0 0.0 - 0.1 [facility] x10(3)/[facility] LABORATORY Immature Gran % 0.50 [...] Abs 0.08 (H) 0.00 - 0.04 x10(3)/[facility] LABORATORY Specimen Anatomical Collection Method Collection Time Receive d Time (Source) Location / / Volume Laterality Blood 12/08/2021 6:02 PM 6:36 EDT PM EDT Resulting Agency Comment Spec In Lab Morgan BROWN HEMATOLOGY ORDERABLES Performing Organization Address City/State/[place] [address] (ABNORMAL) Hemogram (12/08/2021 6:02 PM EDT) Analysis Performed At Patho logist Time Signature WBC 15.6 (H) 4.0 - 9.5 [facility] x10(3)/[facility] LABORATORY RBC 4.05 (L) 4.58 - [facility] 5.54 [facility] x10(6)/[facility] LABORATORY Hemoglobin 11.8 (L) 13.7 - [facility] 16.5 g/dL [facility] LABORATORY Hematocrit 35.8 (L) 40.5 - [facility] 48.5 % [facility] LABORATORY MCV 88.4 82.9 - [facility] 93.1 [facility] LABORATORY MCH 29.1 27.5 - [facility] 32.1 pg [facility] LABORATORY MCHC 33.0 32.0 - [facility] 35.7 g/dL [facility] LABORATORY Platelets 178 145 - 357 [facility] x10(3)/[facility] LABORATORY RDWSD 49.3 (H) 36.0 - [facility] 45.0 [facility] RDWCV 15.1 (H) 11.4 - [facility] DAVIS 13.8 % [facility] LABORATORY MPV 10.4 7.6 - 12.9 [facility] DAVIS [facility] LABORATORY nRBC % Auto 0.0 % [facility] LABORATORY nRBC Abs Auto 0.000 0.000 - [facility] DAVIS 0.000 [facility] x10(3)/[facility] LABORATORY Specimen Anatomical Collection Method Collection Time Receive d Time (Source) Location / / Volume Laterality Blood 12/08/2021 6:02 PM 6:36 EDT PM EDT Resulting Agency Comment Spec In Lab Morgan BROWN HEMATOLOGY ORDERABLES Performing Organization Address City/State/[place] [address] (ABNORMAL) Troponin (12/08/2021 6:02 PM EDT) P athologist Signature Troponin-T 0.89 (H) 0.00 - [facility] DAVIS 0.00 ng/mL [facility] LABORATORY Comment: The 99th percentile for Troponin T is le ss than 0.01 ng/mL, any detectable cTnT concentration using this assay should be considered elevated. According to the third universal definit ion of myocardial infarction the following criteria with a clinical prese ntation consistent with acute myocardial ischemia meets the diagnosis for a myocardial infarction (HI). Detection of a rise and/or fall of [...] additional sample may be indicated. Reference: Third [place] Definition of Myocardial Infarction. Journal of the [place] [employer] 2012;60:1581-98 Specimen Anatomical Collection Method Collection Time Receive d Time (Source) Location / / Volume Laterality Blood 12/08/2021 6:02 PM 6:36 EDT PM EDT Resulting Agency Comment Spec In Lab Iker Cuevas MD CHEMISTRY ORDERABLES Performing Organization Address City/State/ZIP Code [place] [address] COVID-19 PCR (12/08/2021 5:00 PM EDT) [facility] Method Time Signature SARS-CoV-2 Not Detected Not Detected [facility] RNA PCR [facility] LABORATORY Comment: This result should [...] using the Simplexa COVID-19 Direct Assay by [employer] as authorized by the FDA issued Emergency [...] clinical management guidance information are available at [facility] CDC Coronavirus Disease 2019 (COVID-19) webpage under Information fo r Healthcare Professionals (https://www.cdc.gov/coronavirus/2019-nc ov/hcp/index.html). Additional information about this and ot her EUA tests can be found in provider and patient fact sheets at the following FDA website: https://www.fda.gov/medical-devices/amsiwbndtqe-covwahr-1626-davlg-07-yeqtugbur- vgj-dovtfqfzenezet-yryxaye-devices/mbokk-yshwnkljqbf-xzmt SARS-CoV-2 Source STRIPPER CUTTER MACHINE Swab [facility] LABORATORY Specimen (Source) Anatomical Collection Method Collection Time Re ceived Time Location / / Volume Laterality Nasopharyngeal Swab 12/08/2021 5:00 12/08 PM EDT 6:03 PM EDT Comment: Symptoms->Surveillance Resulting Agency Comment Spec In Lab Iker Cuevas MD MICROBIOLOGY - GENERAL ORDER [place] Performing Organization Address City/State/[place] [address] EKG 12 Lead (12/08/2021 4:40 PM EDT) Component Value Ref Range Test Analysis Performed Pathologis t Method Time At Signature Ventricular rate 78 BPM MUSE SYSTEM Atrial Rate 78 BPM MUSE SYSTEM P-R Interval 152 ms MUSE SYSTEM QRS Duration 96 ms MUSE SYSTEM Q-T Interval 396 ms MUSE SYSTEM QTC Calculated 451 ms MUSE SYSTEM (Bezet) Calculated P Elbert 44 degrees MUSE SYSTEM Calculated R Elbert -31 degrees MUSE SYSTEM Calculated T Elbert 124 degrees MUSE SYSTEM INTERPRETATION Normal sinus [...] Glucose 400 (H) 65 - 199 [facility] mg/dL [facility] LABORATORY Comment: Supplemental ranges: <140 mg/dL before meals <180 mg/dL all other times of the day Specimen Anatomical Collection Method Collection Time Receive d Time (Source) Location / / Volume Laterality Blood 12/08/2021 4:34 PM 2 4:34 EDT PM EDT Iker Cuevas MD POINT OF CARE TEST ORDERABLE S Performing Organization Address City/State/[place] [address] documented in this encounter [...] Given 11/23 10:30 AM EDT 300 mcg (HR ADMINISTRATOR) ONCE PRN, Starting on Wed12/10/21 at 1030, [...] infusion (COMPLETED) 1043 (New Bag - Provider: Anthnoy Fatima RN)1243 (Stopped - Provider: Emma Garcia [...] DO NOT CRUSH OR OPEN, Routine 1230 ([facility] Unhold - Provider: Admin Adt) polyethylene glycoL (Miralax) packet 17 g 0805 (SEP Ho ld - Provider: Admin Adt - Reason: Transfer to a Procedural area)0900 (Not Given - Provider: Emma Garcia RN - Reason: Transfer to a Procedural area)1230 ([facility] Unhold - Provider: Admin Adt) [...] Sean ine 0.9) flush 5 mL 0805 ([facility] Hold - Provider: Admin Adt - Reason: Transfer to a Procedural area)0900 (Not Given - Provider: Emma Garcia RN - Reason: Transfer to a Procedural area)1230 ([facility] Unhold - Provider: Admin Adt)1746 [...] 12/12/2021 acetaminophen (Tylenol) tablet 650 mg 08 ([facility] Hold - Provider: Admin Adt - Reason: Transfer to a Procedural area)1230 ([facility] Unhold - Provider: Admin Adt) [...] Routine bisacodyL (Dulcolax) suppository 10 mg 08 ([facility] Hold - Provider: Admin Adt - Reason: Transfer to a Procedural area)1230 ([facility] Unhold - Provider: Admin Adt) 10 mg, Rectal, DAILY PRN, Starting on e 12/09/21 at 1629, Until Wed12/12/21 at 1312, Constipation, Routine dextrose 10% infusion(Linked Group 2) 08 ([facility] Hold - Provider: Admin Adt - Reason: Transfer to a Procedural area)1230 ([facility] Unhold - Provider: Admin Adt) [...] (Intra-Procedure), Routine niCARdipine (Cardene) (100 mcg/mL) dilution (HR ADMINISTRATOR) (CANCELED) 1030 (Given - Provider: Vitaliy Nobles MD) ONCE PRN, Starting on Wed12/10/21 at 103 0, Until Wed12/10/21 at 1230, Intra- Operative (Intra-Procedure), Routine nitroGLYcerin (Nitrostat) disintegrating tablet 0.4 mg 804 ([facility] Hold - Provider: Admin Adt - Reason: Transfer to a Procedural area)123 ([facility] Unhold - Provider: Admin Adt) [...] mg per tablet 1 tab let 804 ([facility] Hold - Provider: Admin Adt - Reason: Transfer to a Procedural area)123 ([facility] Unhold - Provider: Admin Adt) 1 tablet, Oral, 2 TIMES DAILY PRN, Start ing on Wed12/09/21 at 1628, Until Wed12/12/21 at 1312, Constipation, Routine sodium chloride 0.9 % (flush) (BD PosiFlush Normal Sean ine 0.9) flush 5-20 mL 804 ([facility] Hold - Provider: Admin Adt - Reason: Transfer to a Procedural area)123 ([facility] Unhold - Provider: Admin Adt) [...] episode. & nbsp; For persistent hypoglycemia, con roll grinder longer-acting treatment for the duration of the [...]
Routine documented in this encounter Care Teams Steward/Stewardess Smoke Room Relationship Specialty Start Date End Date Lovely Vicente MD PCP - General 04/16/[address] [place] [address] [address] [place] [address] documented as of this encounter
--- OUTSIDE RECORDS SUMMARY | 2022-02-20 08:10 | XMS_ITS | Encounter Summary ---
:1945 Author Organization [facility] [place] [address] Care Team Providers Name Role Phone Lovely Vicente MD Primary Care Provider Encounter Details Date Type Department Care Team Description 08/15/2018 Laboratory Lab 3L Barbara Chronic systoli c heart failure; Appointment [facility] ASCVD (ar teriosclerotic cardiovascular disease) [place] [address] Social History Tobacco Use Types [...] Vitaliy Nobles MD [facility] CARDIOLOGY [place], [place] [address] (Wo rk) documented as of [...] Signature Glucose Lvl 116 65 - 199 [facility] mg/dL [facility] LABORATORY Comment: Diabetes: >=200 mg/dL plus [...] - 107 mmol/L [facility]OR[facility] CO2 27 22 - 31 mmol/L [facility]OR[facility] Anion Gap 15 5 - 15 mmol/L [facility] LABORATORY Calcium 9.0 8.5 - 10.5 mg/dL [facility] LABORATORY Estimated GFR 68 >=60 mL/min/1.73 m?? [facility] LABOR[facility] Comment: The eGFR was calculated using the CKD-EP I equation. As with all creatinine based estimates of kidney function, eGFR values calculated with the CKD-EPI equation are not accurate in patients wi th acute kidney failure, extremes of body mass or the acutely ill. http://Casengo/DHMCnkf eGFR 79 >=60 mL/min/1.73 m?? [facility] LABORATORY Comment: The eGFR was calculated using the CKD-EP I equation. As with all creatinine based estimates of kidney function, eGFR values calculated with the CKD-EPI equation are not accurate in patients wi th acute kidney failure, extremes of body mass or the acutely ill. http://Casengo/DHMCnkf Specimen Anatomical Collection Method Collection Time Receive d Time (Source) Location / / Volume Laterality Blood specimen 08/15/2018 8:04 AM 019 8:20 (specimen) EST AM EST Resulting Agency Comment Spec In Lab Danette Maxwell STACIE CHEMISTRY ORDERABLES Performing Organization Address City/State/[place] [address] Lipid Panel (08/15/2018 8:04 AM EST) athologist Signature Chol, Total 75 mg/dL [facility] Comment: Lower Risk: <200 mg/dL Average Risk: 200-239 mg/dL Higher Risk: >gu=702 mg/dL Triglycerides 185 mg/dL [facility] Comment: Average Risk/Lower Risk: <150 mg/dL Borderline High Risk: 150-199 mg/dL High Risk: 200-499 mg/dL Very High Risk: >iz=580 mg/dL HDL 32 mg/dL [facility] Comment: Males: ?? Higher Risk: <40 mg/dL Females: ?? HIgher Risk: <50 mg/dL LDL Cholesterol 6 mg/dL [facility] Comment: Lowest Risk: <100 mg/dL Lower Risk: 100-129 mg/dL Borderline High Risk: 130-159 mg/dL High Risk: 160-189 mg/dL Very High Risk: >aw=272 mg/dL Chol/HDL Ratio 2.3 ratio [facility] Lipid Interpretation See Note [facility] LABORATORY Comment: Lipid management should be guided by a p atient? s ASCVD risk, goals and preferences. ACC/AHA Guidelines recommend high intens ity statin if clinical ASCVD or LDL greater than or equal to 190 mg/dL. http://ChemoCentryxurl.com/IFU-WBU-Hobxaivdm Adults aged 40-75 with LDL 70-189 mg/dL should have their 10 year ASCVD risk estimated with the ACC/AHA ASCVD risk es timator http://tools.acc.org/LGCQT-Lqdt-Ruamnlds r/ Statin should be discussed if risk [...] Agency Comment Spec In Lab Danette A Webster STACIE CHEMISTRY ORDERABLES Performing Organization Address City/[facility]/[place] [address] (ABNORMAL) pro-Brain Natriuretic Peptide (08/15/2018 8:04 AM EST) P athologist Signature ProBNP 1,797 (H) <=125 [facility] pg/mL [facility] LABORATORY Specimen Anatomical Collection Method Collection Time Receive d Time (Source) Location / / Volume Laterality Blood specimen 08/15/2018 8:04 AM 019 8:20 (specimen) EST AM EST Resulting Agency Comment Spec In Lab Danette Gomes Hans QUINONES CHEMISTRY ORDERABLES Performing Organization Address City/[facility]/ZIP [facility] [place] [address] documented in this encounter Visit Diagnoses Diagnosis Chronic systolic heart failure ASCVD (arteriosclerotic cardiovascular d isease) Unspecified cardiovascular disease documented in this encounter Care Teams Highway Engineer Relationship Specialty Start Date End Date Lovely Vicente MD PCP - General 04/16/[address] [place] [address] documented as of this encounter
--- OUTSIDE RECORDS SUMMARY | 2022-02-20 08:11 | XMS_ITS | Encounter Summary ---
:1945 Author Organization [facility] [place] [address] Care Team Providers Name Role Phone Lovely Vicente MD Primary Care Provider Reason for Visit Reason Onset Date Comments Other 11/11/2017 Please call [facility] Encounter Details Date Type Department Care Team Description 11/11/2017 Telephone Cardiology at [facility] Danette Maxwell, Other (Please call [facility] CHILD CARE TEAM LEAD [facility] ) [place] [address] CARDIOLOGY [place], [place] [address] (Wo rk) Social [...] [facility] ER CARDIOLOGY [place], [place] [address] (Wo rk) documented as of this encounter Visit Diagnoses Not on filedocumented in this encounter Care Teams Manager Machine Relationship Specialty Start Date End Date Lovely Vicente MD PCP - General 04/16/[address] [place] [address] documented as of this encounter
--- OUTSIDE RECORDS SUMMARY | 2022-02-20 08:11 | XMS_ITS | Encounter Summary ---
:1945 Author Organization [place] [address] Care Team Providers Name Role Phone Lovely Vicente MD Primary Care Provider Reason for Visit Reason Onset Date Comments Follow-up 07/13/2018 amiodarone discontin ued Encounter Details Date Type Department Care Team Description 07/13/2018 Telephone Cardiology at [facility] Martha Comer, Follow-up (amiodarone [facility] RN discontin ued) [place] [address] Social History Tobacco Use Types Packs/Day [...] RN - 07/13/2018 8:57 AM EST Per CELL ROOM SUPERVISOR Hans call placed to the home [...] with any questions. Call placed to the [facility] pharmacy in [place] to discontinue it there as well. Med list updated. documented in this encounter Plan of Treatment Upcoming Encounters Date Type Specialty Care Team Description 03/26/2022 Office Visit Cardiology Vitaliy Nobles MD [facility] CARDIOLOGY [place], [place] [address] (Wo rk) documented as of this encounter Visit Diagnoses Not on filedocumented in this encounter Care Teams Batchmaker Relationship Specialty Start Date End Date Lovely Vicente MD PCP - General 04/16/[address] [place] [address] documented as of this encounter
--- OUTSIDE RECORDS SUMMARY | 2022-02-20 08:11 | XMS_ITS | Encounter Summary ---
:1945 Author Organization [facility] [place] [address] Care Team Providers Name Role Phone Lovely Vicente MD Primary Care Provider Encounter Details Date Type Department Care Team Description 11/29/2017 Office Visit Cardiology at [facility] Danette Maxwell Chronic systolic congestive heart failure; [facility] A, HOPPER FILLER ASCVD (arteriosclerotic cardiovascular d isease); [facility] Cardiomyopathy, ischemic; [place], [place] PAD (peripheral artery disease) [phone] CARDIOLOGY [phone] [place], [place] [address] Social History Tobacco Use Types [...] in this encounter Progress Notes Danette Maxwell, HOPPER FILLER - 11/29/2017 9:20 AM EDT ID and [...] 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 [...] using left greater saphenous vein (done at [facility]), debridement of right foot with wound vac [...] right popliteal-pedal bypass at [facility] ? Plan: 1. A review of [...] Vitaliy Nobles MD [facility] ER [address] [place], [place] [address] (Wo rk) documented as of this encounter Results Arterial Duplex Leg, Unil (11/29/2017 10:32 AM EDT) Component Value Ref Test Analysis Performed At [facility] gist Range Method Time Signature VB Text Department: Vascular Surgery Lab VASCUBASE Report Patient: [id number] (DON HOANG) CPT: 11873 ICD10: I72.4;I73.9 Referring Physician: DANETTE MAXWELL ?? [...] Glucose Lvl 217 (H) 65 - 199 [facility] mg/dL [facility] LABORATORY Comment: Diabetes: >=200 mg/dL plus symp toms BUN 26 (H) 10 - 20 mg/dL [facility]OR[facility] Creatinine 0.96 0.80 - 1.50 mg/dL [facility] LABORATORY Sodium 137 135 - 145 mmol/L [facility] Potassium 4.1 3.5 - 5.0 mmol/L [facility] Estimated GFR >60 >=60 [facility] Comment: The reported eGFR should be multiplied b y 1.2 for patients. The MDRD is not an appropriate measure o f renal function for patients with body mass extremes or in patients with acute kidney failure. http://Forticom.Reachoo/DHnkdep http://Moqom/DHMCnkf Specimen Anatomical Collection Method Collection Time Receive d Time (Source) Location / / Volume Laterality Blood specimen 11/29/2017 8:22 AM 018 8:29 (specimen) EDT AM EDT Resulting Agency Comment Spec In Lab Danette Maxwell APRN CHEMISTRY ORDERABLES Performing Organization Address City/State/[place] [address] (ABNORMAL) pro-Brain Natriuretic Peptide (11/29/2017 8:22 AM EDT) P athologist Signature ProBNP 1,769 (H) <=125 [facility] pg/mL [facility] LABORATORY Specimen Anatomical Collection Method Collection Time Receive d Time (Source) Location / / Volume Laterality Blood specimen 11/29/2017 8:22 AM 018 8:29 (specimen) EDT AM EDT Resulting Agency Comment Spec In Lab Danette Maxwell HOPPER FILLER CHEMISTRY ORDERABLES Performing Organization Address City/State/ZIP Code Phon e Number [place] [phone] documented in this encounter Visit Diagnoses Diagnosis Chronic systolic congestive heart failur e Chronic systolic heart failure ASCVD (arteriosclerotic cardiovascular d isease) Unspecified cardiovascular disease Cardiomyopathy, ischemic Other specified forms of chronic ischemi c heart disease PAD (peripheral artery disease) Peripheral vascular disease, unspecified documented in this encounter Care Teams Lye Boiler Relationship Specialty Start Date End Date Lovely Vicente MD PCP - General 04/16/[address] [place] [address] documented as of this encounter
--- OUTSIDE RECORDS SUMMARY | 2022-02-20 08:11 | XMS_ITS | Encounter Summary ---
:1945 Author Organization [facility] [place] [address] Care Team Providers Name Role Phone Lovely Vicente MD Primary Care Provider Encounter Details Date Type Department Care Team Description 04/18/2018 Laboratory Appointment Lab 3L [facility] systolic [facility] [place] [phone] Social History Tobacco Use Types Packs/Day Years [...] Nobles MD [facility] ER CARDIOLOGY [place], [place] [address] (Wo [...] Hepatic Function Panel (04/18/2018 9:19 AM EDT) [facility] Total Protein 7.6 6.1 - 8.0 KATALINA RYAN gm/dL [facility] Albumin 4.0 3.2 - 5.2 [employer] gm/dL [facility] AST 36 0 - 39 KATALINA RYAN unit/L [facility] ALT 27 0 - 55 KATALINA RYAN unit/L [facility] Alk Phos 96 40 - 120 [facility] RYAN unit/L [facility] Total 0.7 0.2 - 1.3 KATALINA [employer] Bilirubin mg/dL [facility] Bili, Direct 0.1 0.0 - 0.3 [facility] RYAN mg/dL [facility] Specimen Anatomical Collection Method Collection Time Receive d Time (Source) Location / / Volume Laterality Blood specimen Venous Draw / 04/18/2018 9:19 AM 2017 9:44 (specimen) Unknown EDT AM EDT Resulting Agency Comment Spec In Lab Danette Maxwell APRN CHEMISTRY ORDERABLES Performing Organization Address City/[facility]/[place] [address] TSH (04/18/2018 9:19 AM EDT) [facility] TSH 1.77 0.27 - 4.20 [facility] RYAN mlU/ML [facility] Specimen Anatomical Collection Method Collection Time Receive d Time (Source) Location / / Volume Laterality Blood specimen Venous Draw / 04/18/2018 9:19 AM 2017 9:44 (specimen) Unknown EDT AM EDT Resulting Agency Comment Spec In Lab Danette Maxwell APRN CHEMISTRY ORDERABLES Performing Organization Address City/[facility]/[place] [address] (ABNORMAL) Basic Metabolic Panel (non-fasting) (04/18/2018 9:19 AM EDT) P athologist Signature Glucose Lvl 167 65 - 199 [facility] mg/dL [facility] Comment: Diabetes: >=200 mg/dL plus symp toms BUN 18 10 - 20 mg/dL [facility] Creatinine 1.19 0.80 - 1.50 mg/dL [facility] Sodium 147 (H) 135 - [...] Gap 23 (H) 5 - 15 mmol/L [facility] [...] of body mass or the acutely ill. http://CANWE STUDIOS/[facility] STROUDnkf eGFR 70 >=60 mL/min/1.73 m?? [facility] Comment: The eGFR was calculated using the CKD-EP I equation. As with all creatinine based estimates of kidney function, eGFR values calculated with the CKD-EPI equation are not accurate in patients wi th acute kidney failure, extremes of body mass or the acutely ill. http://CANWE STUDIOS/[facility] STROUDnkf Specimen Anatomical Collection Method Collection Time Receive d Time (Source) Location / / Volume Laterality Blood specimen 04/18/2018 9:19 AM 018 9:34 (specimen) EDT AM EDT Resulting Agency Comment Spec In Lab Danette Maxwell STACIE CHEMISTRY ORDERABLES Performing Organization Address City/State/[place] [address] (ABNORMAL) pro-Brain Natriuretic Peptide (04/18/2018 9:19 AM EDT) P athologist Signature ProBNP 2,199 (H) <=125 [facility] pg[facility]mL [facility] Specimen Anatomical Collection Method Collection Time Receive d Time (Source) Location / / Volume Laterality Blood specimen 04/18/2018 9:19 AM 018 9:34 (specimen) EDT AM EDT Resulting Agency Comment Spec In Lab Danette Gomes Hans STACIE CHEMISTRY ORDERABLES Performing Organization Address City/[facility]/[place] [address] documented in this encounter Visit Diagnoses Diagnosis Chronic systolic heart failure documented in this encounter Care Teams Grinder Operator Surface Tool Relationship Specialty Start Date End Date Lovely Vicente MD PCP - General 04/16/[address] [place] [address] documented as of this encounter
--- OUTSIDE RECORDS SUMMARY | 2022-02-20 08:11 | XMS_ITS | Encounter Summary ---
:1945 Author Organization [place] [address] Care Team Providers Name Role Phone Lovely Vicente MD Primary Care Provider Encounter Details Date Type Department Care Team Description 10/05/2017 Unscheduled Cardiology at [facility] RONNIE Sin PATIENT NOT SEEN Encounter [facility] Tamiko Martinez MD [facility] [phone] CARDIOLOGY DEPT [phone] [place] [address] Social History Tobacco Use Types Packs/Day Years [...] MD [facility] ER [address]O [place], [place] [address] (Wo rk) documented as of this encounter Visit Diagnoses Diagnosis DH PATIENT NOT SEEN documented in this encounter Care Teams Lobster Man Relationship Specialty Start Date End Date Lovely Vicente MD PCP - General 04/16/[address] [place] [address] documented as of this encounter
--- OUTSIDE RECORDS SUMMARY | 2022-02-20 08:11 | XMS_ITS | Encounter Summary ---
:1945 Author Organization [facility] [place] [address] Care Team Providers Name Role Phone Lovely Vicente MD Primary Care Provider Encounter Details Date Type Department Care Team Description 11/29/2017 Laboratory Lab 3L Barbara Wiseman systoli c congestive heart failure; Appointment [facility] ASCVD (ar teriosclerotic cardiovascular disease); Hospital Cardiomyopathy, [place] [address] Social History Tobacco Use Types [...] MD [facility] ER CARDIOLOGY [place], [place] 0[address] (Wo rk) documented as of [...] 12.5 [facility] LABORATORY INR 2.1 [facility] [...] Organization Address City/State/ZIP [place] [address] (ABNORMAL) Basic Metabolic Panel (non-fasting) (11/29/2017 8:22 AM EDT) P athologist Signature Glucose Lvl 217 (H) 65 - 199 [facility] mg/dL [facility]ORATORY Comment: Diabetes: >=200 mg/dL plus symp toms BUN 26 (H) 10 - 20 mg/dL [facility]OR[facility] Creatinine 0.96 0.80 - 1.50 mg/dL [facility]OR[facility] Sodium 137 135 - 145 mmol/L [facility] Potassium 4.1 3.5 - 5.0 mmol/L [facility] Comment: Please note: ??Patients with WBC >100,00 0 may have falsely elevated Potassium levels. ??For accurate Potassium quantif ication in these patients send serum separator tube (gold top) for subsequent determinations. ??Contact the Clinical Chemistry Laboratory if there are any qu estions. Chloride 97 (L) 98 - 107 mmol/L [facility] CO2 23 22 - 31 mmol/L [facility] Anion Gap 17 (H) 5 - 15 mmol/L [facility] Calcium 8.5 8.5 - 10.5 mg/dL [facility] Estimated GFR >60 >=60 [facility] Comment: The reported eGFR should be multiplied b y 1.2 for patients. The MDRD is not an appropriate measure o f renal function for patients with body mass extremes or in patients with acute kidney failure. http://Reevoo/DHnkdep http://Reevoo/DHMCnkf Specimen Anatomical Collection Method Collection Time Receive d Time (Source) Location / / Volume Laterality Blood specimen 11/29/2017 8:22 AM 018 8:29 (specimen) EDT AM EDT Resulting Agency Comment Spec In Lab Danette Maxwell APRN CHEMISTRY ORDERABLES Performing Organization Address City/[facility]/[place] [address] (ABNORMAL) pro-Brain Natriuretic Peptide (11/29/2017 8:22 AM EDT) P athologist Signature ProBNP 1,769 (H) <=125 [facility] RYAN pg/mL [facility] LABOR[facility]ORY Specimen Anatomical Collection Method Collection Time Receive d Time (Source) Location / / Volume Laterality Blood specimen 11/29/2017 8:22 AM 018 8:29 (specimen) EDT AM EDT Resulting Agency Comment Spec In Lab Danette Maxwell APRN CHEMISTRY ORDERABLES Performing Organization Address City/State/[place] [address] Lavender Tube HOLD (11/29/2017 8:14 AM EDT) [facility] Method Time Signature [place] Hold Sample in [facility] lab. [facility] LABOR[facility]ORY Specimen Anatomical Collection Method Collection Time Receive d Time (Source) Location / / Volume Laterality Blood specimen No Charge / 11/29/2017 8:14 AM 018 8:29 (specimen) Unknown EDT AM EDT Lovely Vicente MD HEMATOLOGY ORDERABLES Performing Organization Address City/State/ZIP Code Phon e Number [place] [phone] documented in this encounter Visit Diagnoses Diagnosis Chronic systolic congestive heart failur e Chronic systolic heart failure ASCVD (arteriosclerotic cardiovascular d isease) Unspecified cardiovascular disease Cardiomyopathy, ischemic Other specified forms of chronic ischemi c heart disease documented in this encounter Care Teams Medical Staff Services Coordinator Relationship Specialty Start Date End Date Lovely Vicente MD PCP - General 04/16/[address] [place] [address] documented as of this encounter
--- OUTSIDE RECORDS SUMMARY | 2022-02-20 08:11 | XMS_ITS | Encounter Summary ---
:1945 Author Organization [facility] [place] [address] Care Team Providers Name Role Phone Lovely Vicente MD Primary Care Provider Reason for Referral Diagnostic Test (Routine) - Closed Specialty Diagnoses / Procedures Referred By Contact Refer red To Contact Cardiology Diagnoses Ischemic cardiomyopathy Acute on chronic systolic congestive heart failure Danette Maxwell APRN [facility] Non-Inv Card Lab Procedures Echocardiogram Transthoracic(Leb) [facility] [place] [address] [place] [address] Referral ID Status Reason Start Date Expiration Date Visits V isits Requested Authorized [id number] Closed Specialty 08/30/2017 08/30/2018 1 1 Service Requested Reason for Visit Diagnostic Test (Routine) - Closed Specialty Diagnoses / Procedures Referred By Contact Refer red To Contact Cardiology Diagnoses Ischemic cardiomyopathy Acute on chronic systolic congestive heart failure Danette Maxwell APRN [facility] Non-Inv Card Lab Procedures Echocardiogram Transthoracic(Leb) [facility] [place] [address] [place] [address] Referral ID Status Reason Start Date Expiration Date Visits V isits Requested Authorized [id number] Closed Specialty 08/30/2017 08/30/2018 1 1 Service Requested Encounter Details Date Type Department Care Team Description 10/07/2017 Hospital Encounter Non-Invasive Ischemic cardiomyopathy; Cardiology Lab Barbara Craig on chronic systolic [place] [address] Social History Tobacco Use Types Packs/Day [...] gauge x 4 times daily. 10/08 Needle ascorbic acid, vitamin Take 500 mg by [...] mg by mouth 0 01/16/2019 tablet daily. AMIOdarone (CORDARONE; Take 1 tablet by [...] Vitaliy Nobles MD [facility] ER CARDIOLOGY [place], [place] [address] (Wo rk) documented as of this [...] Mccollum ? (Age): 1945(72y) Med Rec#: ? [id number] ?Sex: ?M ? Site Loc: ? [facility] ?Ht / Wt: ??173(cm)/82(kg) Pt. Loc: ?Echo Lab ?BSA: ?1.96 Study Date: ?? 10/07/2017 ?Pt. Type: Outpatient Tape: ? Referring: Danette Maxwell Reading: Iker Cuevas ([id number]) Production Cell Leader: Yonathan Bocanegra Diagnosis: *ICD-10-PCS Ischemic cardiomyopathy (I2 [...] E-wave Vmax ?1.2 ?m/sec ? MV deceleration [id number] ?msec ? MV A-wave Vmax ?1 ?m/sec [...] ? Mid-Inferior ?Hypokinetic ? Mid-Inferoseptal ?Hypokinetic ? [place]-Septal ? Akinetic ? [place]-Anterior ? Hypokinetic ? [place]-Lateral ?Hypokinetic ? [place]-Inferior ? Hypokinetic ? [place]-Tip ?Akinetic ? This report has been electronically sign ed by: _ Iker Cuevas M.D. ? 10/07/2017 11:12:34 Images reviewed and interpretation verif ied [facility] Cardiac Ultrasound Laboratory Procedure Note Iker Cuevas MD - 10/07/2017Formatti ng of this note might be different from the original. Procedure: Transthoracic Echocardiogram Patient: NATALYA MCBRIDE(Age): [birth year]72y) Med Rec#: [id number] Sex: M Site Loc: [facility] Ht / Wt: 173(cm)/82(kg) Pt. Loc: Echo Lab BSA: 1.96 Study Date: 10/07/2017 Pt. Type: Outpati ent Tape: Referring: Danette Maxwell Reading: Iker Cuevas ([id number]) Production Cell Leader: Yonathan Bocanegra Diagnosis: *ICD-10-PCS Ischemic cardiomyopathy (I2 [...] MV E-wave Vmax 1.2 m/sec MV deceleration [id number] msec MV A-wave Vmax 1 m/sec MV [...] Akinetic Mid-Posterolateral Hypokinetic Mid-Inferior Hypokinetic Mid-Inferoseptal Hypokinetic Sanibel-Septal Akinetic [place]-Anterior Hypokinetic [place]-Lateral Hypokinetic [place]-Inferior Hypokinetic [place]-Tip Akinetic This report has been electronically sign ed by: Celi Cuevas M.D. 10/07/2017 11:12 :34 Images reviewed and interpretation elvie hwang [facility] Cardiac Ultrasound Laboratory Danette Maxwell STACIE ECHO [...] documented in this encounter Care Teams Senior Category Manager Relationship Specialty Start Date End Date Lovely Vicente MD PCP - General 04/16/[address] [place] [address] documented as of this encounter
--- OUTSIDE RECORDS SUMMARY | 2022-02-20 08:11 | XMS_ITS | Encounter Summary ---
:1945 Author Organization [facility] Address [facility] [place] [address] Care Team Providers Name Role Phone Lovely Vicente MD Primary Care Provider Reason for Referral Diagnostic Test (Routine) - Specialty Diagnoses / Procedures Referred By Contact Refer red To Contact Cardiology Diagnoses Chronic systolic heart failure Danette Maxwell APRN [facility] Non-Inv Card Lab Procedures Echocardiogram Transthoracic(Leb) [facility] [place] [address] [place] [address] Referral ID Status Reason Start Date Expiration Visits Visits Date Requested Authorized [id number] Specialty 08/15/2018 08/15/2018 1 1 Service Requested Encounter Details Date Type Department Care Team Description 04/18/2018 Office Visit Cardiology at [facility] Danette Maxwell Chronic systolic heart failu re; [facility] STACIE Gomes On amiodarone therapy; [facility] Ischemic cardiomyopathy; [place], [place] DR ONOFRE (arteriosclerotic cardiovascular d isease) [address] CARDIOLOGY [phone] [place], [place] [address] Social History Tobacco Use Types Packs/Day Years [...] in this encounter Progress Notes Danette Maxwell, CABIN FURNISHINGS INSTALLER - 04/18/2018 10:40 AM EDT ID and [...] x 80 10/25/2017: right popliteal-pedal bypass at [facility] ? Plan: 1. A review of [...] MD [facility] CARDIOLOGY [place], [place] [address] (Wo rk) documented as of this encounter Results ECHOCARDIOGRAM COMPLETE W CONTRAST (08/15/2018 7:55 AM EST) P athologist Signature EF 35 [facility] Specimen (Source) Anatomical Location Collection Method / Collectio n Time Received Time / Laterality Volume 08/15/2018 Narrative [facility] - 08/15/2018 8:18 AM EST Procedure: ?Transthoracic Echocardiogram Patient: ?NATALYA Mccollum ? (Age): 1945(73y) Med Rec#: ? [id number] ?Sex: ?M ? Site Loc: ? [facility] ?Ht / Wt: ??172(cm)/81(kg) Pt. Loc: ?Echo Lab ?BSA: ?1.94 Study Date: ?? 08/15/2018 ?Pt. Type: Outpatient Tape: ? Referring: MARY ELLEN Reading: Scott Ortega ([id number]) Automation Tester: Laura Sargent Diagnosis: *Chronic systolic (congestive) heart [...] E-wave Vmax ?1.2 ?m/sec ? MV deceleration [id number] ? msec ? MV A-wave Vmax ?0.7 [...] ? Mid-Inferior ?Hypokinetic ? Mid-Inferoseptal ?Hypokinetic ? Bowers-Septal ? Akinetic ? Bowers-Anterior ? Hypokinetic ? Bowers-Lateral ?Akinetic ? Bowers-Inferior ? Hypokinetic ? Bowers-Tip ?Akinetic ? This report has been electronically sign ed by: _ Scott Ortega M.D. ? 08/15/2018 08:17:26 Images reviewed and interpretation elvie hwang [facility] Cardiac Ultrasound Laboratory Procedure Note Soctt Ortega MD - 08/15/2018Format ting of this note might be different from the original. Procedure: Transthoracic Echocardiogram Patient: NATALYA Mccollum DOB(Age): [birth year]73y) Med Rec#: [id number] Sex: M Site Loc: [facility] Ht / Wt: 172(cm)/81(kg) Pt. Loc: Echo Lab BSA: 1.94 Study Date: 08/15/2018 Pt. Type: Outpati ent Tape: Referring: MARY ELLEN Reading: Scott Ortega Eliseo ([id number]) Automation Tester: Laura Sargent Diagnosis: *Chronic systolic (congestive) heart [...] MV E-wave Vmax 1.2 m/sec MV deceleration [id number] msec MV A-wave Vmax 0.7 m/sec MV [...] Akinetic Mid-Posterolateral Akinetic Mid-Inferior Hypokinetic Mid-Inferoseptal Hypokinetic Bowers-Septal Akinetic Bowers-Anterior Hypokinetic Bowers-Lateral Akinetic Bowers-Inferior Hypokinetic Bowers-Tip Akinetic This report has been electronically sign ed by: _ Scott Ortega M.D. 08/15/2018 08:17: 26 Images reviewed and interpretation elvie hwang [facility] Cardiac Ultrasound Laboratory Danette Maxwell APRN ECHO ORDERABLES Performing Organization Address City/State/ZIP Code Phon e Number HE[facility] SYSTEM (ABNORMAL) Basic Metabolic Panel (non-fasting) (04/18/2018 9:19 AM EDT) P athologist Signature Glucose Lvl 167 65 - 199 [facility] mg/dL [facility] Comment: Diabetes: >=200 mg/dL plus symp toms BUN 18 10 - 20 mg/dL [facility] Creatinine 1.19 0.80 - 1.50 mg/dL [facility] Sodium 147 (H) 135 - 145 mmol/L [facility] [...] mmol/L [facility] Anion Gap 23 (H) 5 - 15 mmol/L [facility] Calcium 9.3 8.5 - 10.5 mg/dL [facility] Estimated GFR 61 >=60 mL/min/1.73 m?? [facility] Comment: The eGFR was calculated using the CKD-EP I equation. As with all creatinine based estimates of kidney function, eGFR values calculated with the CKD-EPI equation are not accurate in patients wi th acute kidney failure, extremes of body mass or the acutely ill. http://CyberDefender/[facility] eGFR 70 >=60 mL/min/1.73 m?? [facility] Comment: The eGFR was calculated using the CKD-EP I equation. As with all creatinine based estimates of kidney function, eGFR values calculated with the CKD-EPI equation are not accurate in patients wi th acute kidney failure, extremes of body mass or the acutely ill. http://CyberDefender/[facility] Specimen Anatomical Collection Method Collection Time Receive d Time (Source) Location / / Volume Laterality Blood specimen 04/18/2018 9:19 AM 018 9:34 (specimen) EDT AM EDT Resulting Agency Comment Spec In Lab Danette Maxwell STACIE CHEMISTRY ORDERABLES Performing Organization Address City/State/[place] [address] (ABNORMAL) pro-Brain Natriuretic Peptide (04/18/2018 9:19 AM EDT) P athologist Signature ProBNP 2,199 (H) <=125 [facility] pg[facility]mL [facility] Specimen Anatomical Collection Method Collection Time Receive d Time (Source) Location / / Volume Laterality Blood specimen 04/18/2018 9:19 AM 018 9:34 (specimen) EDT AM EDT Resulting Agency Comment Spec In Lab Danette Gomes Hans STACIE CHEMISTRY ORDERABLES Performing Organization Address City/[facility]/ZIP [place] [address] documented in this encounter Visit Diagnoses Diagnosis Chronic systolic heart failure On amiodarone therapy Ischemic cardiomyopathy Other specified forms of chronic ischemi c heart disease ASCVD (arteriosclerotic cardiovascular d isease) Unspecified cardiovascular disease Chronic systolic heart failure documented in this encounter Care Teams Roll Mill Operator Relationship Specialty Start Date End Date Lovely Vicente MD PCP - General 04/16/[address] [place] [address] documented as of this encounter
--- OUTSIDE RECORDS SUMMARY | 2022-02-20 08:11 | XMS_ITS | Encounter Summary ---
:1945 Author Organization [facility] [place] [address] Care Team Providers Name Role Phone Lovely Vicente MD Primary Care Provider Encounter Details Date Type Department Care Team Description 11/29/2017 Hospital Encounter Vascular Lab at [facility] PAD (peripheral [facility], RVT artery [facility]) [place] [address] Social History Tobacco Use Types Packs/Day Years [...] mg by mouth 0 01/16/2019 tablet daily. acetaminophen Take 2 tablets by 0 11/02/2017 [...] Nobles MD [facility] CARDIOLOGY [place], [place] 0[address] (Wo rk) documented as of this encounter Procedures Procedure Name Priority Date/Time Associated Diagnosis Comme nts ARTERIAL DUPLEX LEG Routine 11/29/2017 10:32 AM PAD (periphera l Results for this UNILA EDT artery disease) procedure ar e in the results section. documented in this encounter Results Arterial Duplex Leg, Unil (11/29/2017 10:32 AM EDT) Component Value Ref Test Analysis Performed At [facility] Range Method Time Signature VB Text Department: Vascular Surgery Lab VASCUBASE Report Patient: [id number] (DON HOANG) CPT: 06182 ICD10: I72.4;I73.9 Referring Physician: DANETTE MAXWELL ?? [...] unspecified documented in this encounter Care Teams Welfare Project Manager Relationship Specialty Start Date End Date Lovely Vicente MD PCP - General 04/16/[address] [facility] [place] [address] documented as of this encounter
--- OUTSIDE RECORDS SUMMARY | 2022-02-20 08:11 | XMS_ITS | Encounter Summary ---
:1945 Author Organization [facility] [place] [address] Care Team Providers Name Role Phone Lovely Vicente MD Primary Care Provider Reason for Referral Diagnostic Test (Routine) - Specialty Diagnoses / Procedures Referred By Contact Refer red To Contact Cardiology Diagnoses Chronic systolic heart failure Danette Maxwell APRN [facility] Non-Inv Card Lab Procedures Echocardiogram Transthoracic(Leb) [facility] [place] [phone] [place] [address] Referral ID Status Reason Start Date Expiration Visits Visits Date Requested Authorized [id number] Specialty 08/15/2018 08/15/2018 1 1 Service Requested Reason for Visit Diagnostic Test (Routine) - Specialty Diagnoses / Procedures Referred By Contact Nawaf owen To Contact Cardiology Diagnoses Chronic systolic heart failure Danette Maxwell APRN [facility] Non-Inv Card Lab Procedures Echocardiogram Transthoracic(Leb) [facility] [place] [address] [place] [address] Referral ID Status Reason Start Date Expiration Visits Visits Date Requested Authorized [id number] Specialty 08/15/2018 08/15/2018 1 1 Service Requested Encounter Details Date Type Department Care Team Description 08/15/2018 Hospital Encounter Non-Invasive Danette Maxwell Chron ic systolic Cardiology Lab Barbara Gomes APRN heart failure [facility] [place] [address] [place] [phone] [address] (Work) [phone] Social History Tobacco Use Types Packs/Day Years [...] 500 mg daily. Winter months Tablet only aspirin 81 mg EC Take [...] Visit Cardiology Vitaliy Nobles MD [facility] ER CARDIOLOGY [place], [place] [address] (Wo rk) documented as of [...] Veda ? (Age): 1945(73y) Med Rec#: ? [id number] ?Sex: ?M ? Site Loc: ? [facility] [place] ?Ht / Wt: ??172(cm)/81(kg) Pt. Loc: ?Echo Lab ?BSA: ?1.94 Study Date: ?? 08/15/2018 ?Pt. Type: Outpatient Tape: ? Referring: MARY ELLEN Reading: Scott Ortega ([id number]) Women'S Studies Lecturer: Laura Sargent Diagnosis: *Chronic systolic (congestive) heart [...] E-wave Vmax ?1.2 ?m/sec ? MV deceleration [id number] ? msec ? MV A-wave Vmax ?0.7 [...] ? Mid-Inferior ?Hypokinetic ? Mid-Inferoseptal ?Hypokinetic ? [place]ora-Septal ? Akinetic ? [place]-Anterior ? Hypokinetic ? [place]-Lateral ?Akinetic ? [place]-Inferior ? Hypokinetic ? [place]-Tip ?Akinetic ? This report has been electronically sign ed by: _ Scott Ortega M.D. ? 08/15/2018 08:17:26 Images reviewed and interpretation [facility] Cardiac Ultrasound Laboratory Procedure Note Scott Ortega MD - 08/15/2018Format ting of this note might be different from the original. Procedure: Transthoracic Echocardiogram Patient: NATALYA MCBRIDE(Age): [birth year]73y) Med Rec#: [id number] Sex: M Site Loc: [facility] [place] Ht / Wt: 172(cm)/81(kg) Pt. Loc: Echo Lab BSA: 1.94 Study Date: 08/15/2018 Pt. Type: Outpati ent Tape: Referring: MARY ELLEN Reading: Scott Ortega ([id number]) Women'S Studies Lecturer: Laura Sargent Diagnosis: *Chronic systolic (congestive) heart [...] MV E-wave Vmax 1.2 m/sec MV deceleration [id number] msec MV A-wave Vmax 0.7 m/sec MV [...] Akinetic Mid-Posterolateral Akinetic Mid-Inferior Hypokinetic Mid-Inferoseptal Hypokinetic [place]ora-Septal Akinetic [place]-Anterior Hypokinetic [place]-Lateral Akinetic [place]-Inferior Hypokinetic [place]-Tip Akinetic This report has been electronically sign ed by: _ Scott Ortega M.D. 08/15/2018 08:17: 26 Images reviewed and interpretation verif ied [facility] Cardiac Ultrasound Laboratory Danette A [place] STACIE ECHO ORDERABLES Performing Organization Address City/State/ZIP [...] in this encounter Care Teams Director Of Sales And Marketing Relationship Specialty Start Date End Date Lovely Vicente MD PCP - General 04/16/[address] [place] [address] documented as of this encounter
--- OUTSIDE RECORDS SUMMARY | 2022-02-20 08:11 | XMS_ITS | Encounter Summary ---
:1945 [place] [address] Care Team Providers Name Role Phone Lovely Vicente MD Primary Care Provider Encounter Details Date Type Department Care Team Description 08/26/2017 Hospital Encounter Vascular Lab at [facility], Athero embolism of foot, right; [place], [place] Delayed surgi nusrat wound healing, [place] [phone] Social History Tobacco Use Types Packs/Day Years [...] 31 gauge x times daily. 3/16 Needle levothyroxine Take 1 tablet by mouth [...] mg by mouth 0 01/16/2019 tablet daily. amoxicillin-clavulanat Take 1 tablet by mouth 20 [...] Nobles MD [facility] CARDIOLOG[facility] [place], [place] [address] (Wo rk) documented as of [...] Department: Vascular Surgery Lab VASCUBASE Report Patient: [id number] (DON HOANG) CPT: 71738 ICD10: T81.89XA;I75.021 Referring Physician: ELVER BLOOM ?? [...] encounter documented in this encounter Care Teams Extension Service Specialist Relationship Specialty Start Date End Date Lovely Vicente MD PCP - General 04/16/[address] [place] [address] documented as of this encounter
--- OUTSIDE RECORDS SUMMARY | 2022-02-20 08:11 | XMS_ITS | Encounter Summary ---
:1945 Author Organization [facility] [place] [address] Care Team Providers Name Role Phone Lovely Vicente MD Primary Care Provider Encounter Details Date Type Department Care Team Description 08/19/2017 Office Visit Vascular Surgery at [place], PAD (peripheral artery [facility] DRIVER disease) [facility] [address] [place] VASCULAR SURGERY [address] [place] [address] [phone] Social History Tobacco Use Types Packs/Day Years [...] Vitaliy Nobles MD [facility] DR CARDIOLOGY [place], [place] [address] (Wo rk) documented as of this encounter Visit Diagnoses Diagnosis PAD (peripheral artery disease) Peripheral vascular disease, unspecified documented in this encounter Care Teams Records Officer Relationship Specialty Start Date End Date Lovely Vicente MD PCP - General 04/16/[address] [place] [address] documented as of this encounter
--- OUTSIDE RECORDS SUMMARY | 2022-02-20 08:11 | XMS_ITS | Encounter Summary ---
:1945 Author Organization [place] [address] Care Team Providers Name Role Phone Lovely Vicente MD Primary Care Provider Encounter Details Date Type Department Care Team Description 10/05/2017 Telephone Cardiology at [facility] Tamiko Sin MD [facility] [place] [address] CARDIOLOGY DEPT [phone] [place], [place] [address] (Wo rk) Social History Tobacco [...] [facility] ER DR CAR[place]LE [place], [place] [address] (Wo rk) documented as of this encounter Visit Diagnoses Not on filedocumented in this encounter Care Teams Sales Audit Clerk Relationship Specialty Start Date End Date Lovely Vicente MD PCP - General 04/16/[address] [place] [address] documented as of this encounter
--- OUTSIDE RECORDS SUMMARY | 2022-02-20 08:11 | XMS_ITS | Encounter Summary ---
:1945 Author Organization [facility] [place] [address] Care Team Providers Name Role Phone Lovely Vicente MD Primary Care Provider Reason for Visit Reason Comments Skin Check Encounter Details Date Type Department Care Team Description 07/06/2018 Office Visit Dermatology at [facility], Rigoberto Yarbrough (actinic keratosis); MD SHAY Quick III (seborrheic keratosis); [address] [facility] History of melanoma; [place] [address] Skin exam for malignant neoplasm [phone] [facility] [place], [place] [address] Social History Tobacco Use Types [...] leg - he had vascular surgery in [facility] while he lost several toes, [...] encounter. Rigoberto Garcia MD Section of Dermatology [facility] documented in this encounter Plan of Treatment Upcoming Encounters Date Type Specialty Care Team Description 03/26/2022 Office Visit Cardiology Vitaliy Nobles MD [facility] ER DR CARDIOLOGY [place] [address] (Wo rk) documented as of this encounter Visit Diagnoses Diagnosis AK (actinic keratosis) Actinic keratosis SK (seborrheic keratosis) Other seborrheic keratosis History of melanoma Personal history of malignant melanoma o f skin Skin exam for malignant neoplasm Screening for malignant neoplasm of the skin documented in this encounter Care Teams Cuprous Chloride Helper Relationship Specialty Start Date End Date Lovely Vicente MD PCP - General 04/16/[address] [place] [address] [address] [place] [address] documented as of this encounter
--- OUTSIDE RECORDS SUMMARY | 2022-02-20 08:11 | XMS_ITS | Encounter Summary ---
:1945 Author Organization [facility] [place] [address] Care Team Providers Name Role Phone Lovely Vicente MD Primary Care Provider Reason for Visit Reason Comments Follow-up Encounter Details Date Type Department Care Team Description 08/19/2017 Office Visit Cardiac Surgery at [place], Jock S/P C ABG (coronary [facility] N, artery bypass graft) [facility] [place] CARD[place]ORACIC [address] SURGERY [phone] [place], [place] [address] Social History Tobacco Use Types [...] office. Best personal regards, Yuan Retana MD [phone] documented in this encounter Plan of Treatment Upcoming Encounters Date Type Specialty Care Team Description 03/26/2022 Office Visit Cardiology Vitaliy Nobles MD [facility] CARDIOLOGY [place], [place] [address] (Wo [...] 454 ms MUSE SYSTEM (Bezet) Calculated P [place] 20 degrees MUSE SYSTEM Calculated R [place] -29 degrees MUSE SYSTEM Calculated T [place] 121 degrees MUSE SYSTEM INTERPRETATION Normal sinus rhythm MUSE SYSTEM Inferior infarct (cited on or before 25-JAN-2013) Anterior 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) T wave abnormality, consider lateral ischemia Abnormal ECG When compared with ECG of 06-AUG-2017 12:37, No signif icant change was found Confirmed by MD Luci, Taurus Braun ([id number]) on 08/19/2017 1 0:37:38 PM Specimen Anatomical [...] status documented in this encounter Care Teams Final Inspector And Tester Relationship Specialty Start Date End Date Lovely Vicente MD PCP - General 04/16/[address] [place] [address] documented as of this encounter
--- OUTSIDE RECORDS SUMMARY | 2022-02-20 08:11 | XMS_ITS | Encounter Summary ---
:1945 Author Organization [facility] [place] [address] Care Team Providers Name Role Phone Lovely Vicente MD Primary Care Provider Encounter Details Date Type Department Care Team Description 09/07/2017 Laboratory Appointment Lab 3L [facility] Hx of [facility] [place] [address] Social History Tobacco Use Types Packs/Day Years [...] MD [facility] ER CARDIOLOGY [place], [place] [address] (Wo rk) documented as of [...] PM EST) athologist Signature Thyroglobulin 1.4 <=54.9 [facility] ng/mL [facility] Comment: Thyroglobulin levels may [...] Thyroglob Ab <20.0 0.0 - 40.0 IU/mL [facility] Comment: Assay performed is the [...] Organization Address City/State/[place] [address] TSH (09/07/2017 2:41 PM EST) athologist Signature TSH 3.93 0.27 - 4.20 [facility] mlU/ML [facility] Specimen Anatomical Collection Method Collection Time Receive d Time (Source) Location / / Volume Laterality Blood specimen 09/07/2017 2:41 PM 018 2:46 (specimen) EST PM EST Resulting Agency Comment Spec In Lab Luz Prescott MD CHEMISTRY ORDERABLES Performing Organization Address City/State/[place] [address] documented in this encounter Visit Diagnoses Diagnosis Hx of papillary thyroid carcinoma Personal history of malignant neoplasm o f thyroid documented in this encounter Care Teams Content Coordinator Relationship Specialty Start Date End Date Lovely Vicente MD PCP - General 04/16/[address] [place] [address] documented as of this encounter
--- OUTSIDE RECORDS SUMMARY | 2022-02-20 08:11 | XMS_ITS | Encounter Summary ---
:1945 Author Organization [facility] Address [facility] [place] [address] Care Team Providers Name Role Phone Lovely Vicente MD Primary Care Provider Encounter Details Date Type Department Care Team Description 10/07/2017 Office Visit Cardiology at [facility] Danette Maxwell Chronic systolic heart failu re; [facility] A, COLOR TECHNICIAN S/P CABG x 3; Drive [facility] On amiodarone therapy; [place], [place] Atrial fibrillation, unspecified type; [address] CARDIOLOGY ASCVD (arteriosclerotic cardiovascular d isease) [phone] [place], [place] [address] Social History Tobacco Use Types [...] - documented in this encounter Progress Notes [place] Danette A, COLOR TECHNICIAN - 10/07/2017 11:20 AM EDT ID and [...] painful and swollen right foot right d/t 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 Espino On IV antibiotics at [facility] Today: Mr. Fatima is accompanied by his [...] continue to see Dr. Bains well at [facility] and follow his wound on his right lower extremity. And she will continue to direct antibiotic treatment. Ihave asked that the echocardiogram results be faxed to Dr. Zurita at [facility]. 1. ASCVD Continue ASA, BB and statin [...] and bone removal by Dr. Aguero at [facility]. Currently receiving IV antibiotics at [facility] ? Plan: 1. A review of the [...] Cardiology Vitaliy Nobles MD [facility] ER DR TADEO [place], [place] [address] (Wo rk) documented as of this encounter Results (ABNORMAL) Basic Metabolic Panel (non-fasting) (10/07/2017 8:48 AM EDT) athologist Signature Glucose Lvl 99 65 - 199 [facility] mg/dL [facility] Comment: Diabetes: >=200 mg/dL plus symp toms BUN 27 (H) 10 - 20 mg/dL [facility] Creatinine 1.07 0.80 - 1.50 mg/dL [facility] [...] 15 mmol/L [facility] Calcium 8.4 (L) 8.5 - 10.5 mg/dL [facility] Estimated GFR >60 >=60 [facility] Comment: The reported eGFR should be multiplied b y 1.2 for patients. The MDRD is not an appropriate measure o f renal function for patients with body mass extremes or in patients with acute kidney failure. http://[employer]/DHnkdep http://[employer]/DHMCnkf Specimen Anatomical Collection Method Collection Time Receive d Time (Source) Location / / Volume Laterality Blood specimen 10/07/2017 8:48 AM 018 8:50 (specimen) EDT AM EDT Resulting Agency Comment Spec In Lab Danette Maxwell APRN CHEMISTRY ORDERABLES Performing Organization Address City/[facility]/[place] [address] (ABNORMAL) pro-Brain Natriuretic Peptide (10/07/2017 8:48 AM EDT) P athologist Signature ProBNP 1,170 (H) <=125 [facility] pg/mL [facility] Specimen Anatomical Collection Method Collection Time Receive d Time (Source) Location / / Volume Laterality Blood specimen 10/07/2017 8:48 AM 018 8:50 (specimen) EDT AM EDT Resulting Agency Comment Spec In Lab Danette Maxwell APRN CHEMISTRY ORDERABLES Performing Organization Address City/[facility]/[place] [address] documented in this encounter Visit Diagnoses Diagnosis Chronic systolic heart failure S/P CABG x 3 Postsurgical aortocoronary bypass status On amiodarone therapy Atrial fibrillation, unspecified type ASCVD (arteriosclerotic cardiovascular d isease) Unspecified cardiovascular disease documented in this encounter Care Teams Yard Foreman Relationship Specialty Start Date End Date Lovely Vicente MD PCP - General 04/16/[address] [place] [address] [address] [place] [address] documented as of this encounter
--- OUTSIDE RECORDS SUMMARY | 2022-02-20 08:11 | XMS_ITS | Encounter Summary ---
:1945 Author Organization [facility] [place] [address] Care Team Providers Name Role Phone Lovely Vicente MD Primary Care Provider Encounter Details Date Type Department Care Team Description 09/06/2017 Orders Only Vascular Surgery at [facility] Ninfa Clark, [facility] [place] [address] Social History Tobacco Use Types Packs/Day [...] [facility] ER CARDIOLOGY [place], [place] [address] (Wo rk) documented as of this encounter Visit Diagnoses Not on filedocumented in this encounter Care Teams Tester Operator Helper Relationship Specialty Start Date End Date Lovely Vicente MD PCP - General 04/16/[address] [place], [place] [address] documented as of this encounter
--- OUTSIDE RECORDS SUMMARY | 2022-02-20 08:11 | XMS_ITS | Encounter Summary ---
:1945 [place] [address] Care Team Providers Name Role Phone Lovely Vicente MD Primary Care Provider Encounter Details Date Type Department Care Team Description 11/29/2017 Hospital Encounter Radiology Library at Estefany Maxwell Pain [facility] PHOTOGRAPHIC EDITOR [facility] [place] [address] CARDIOLOGY [phone] [place], [place] [address] (Wo rk) Social History Tobacco [...] [facility] ER DR TADEO [place], [place] [address] (Wo rk) documented as of [...] Address City/State/ZIP Code Phon e Number [place], [place] documented in this encounter Visit Diagnoses Diagnosis Pain Generalized pain documented in this encounter Care Teams Branch Employment Coordinator Relationship Specialty Start Date End Date Lovely Vicente MD PCP - General 04/16/[address] [place] [address] documented as of this encounter
--- OUTSIDE RECORDS SUMMARY | 2022-02-20 08:11 | XMS_ITS | Encounter Summary ---
:1945 Author Organization [facility] [place] [address] Care Team Providers Name Role Phone Lovely Vicente MD Primary Care Provider Reason for Visit Reason Comments Follow-up Skin Check Encounter Details Date Type Department Care Team Description 01/06/2018 Office Visit Dermatology at Rigoberto Formantipmirna nevi; Abdelrahman HOOPER MD History of melanoma; [address] [facility] [place] [address] [facility] [place], [place] [address] Social History Tobacco Use Types [...] service: 01/06/2018 Don Fatima : 1945 Provider: iRgoberto Garcia MD PROBLEM: full skin cancer exam [...] Garcia MD Section of Dermatology [facility] documented in this encounter Plan of Treatment Upcoming Encounters Date Type Specialty Care Team Description 03/26/2022 Office Visit Cardiology Vitaliy Nobles MD [facility] ER DR [place]ARDIOLOGY [place], [place] [address] (Wo rk) documented as of this encounter Visit Diagnoses Diagnosis Multiple nevi Benign neoplasm of skin, site unspecifie d History of melanoma Personal history of malignant melanoma o f skin Seborrheic keratosis Other seborrheic keratosis documented in this encounter Care Teams Chemical Sprayer Relationship Specialty Start Date End Date Lovely Vicente MD PCP - General 04/16/[address] [place] [address] documented as of this encounter
--- OUTSIDE RECORDS SUMMARY | 2022-02-20 08:11 | XMS_ITS | Encounter Summary ---
:1945 Author Organization [facility] [place] [address] Care Team Providers Name Role Phone Lovely Vicente MD Primary Care Provider Encounter Details Date Type Department Care Team Description 10/07/2017 Laboratory Appointment Lab 3L [facility] systolic [facility] [place] [address] Social History Tobacco Use Types Packs/Day Years [...] MD [facility] ER CARDIOLOGY [place], [place] [address] (Wo rk) documented as of [...] Signature Glucose Lvl 99 65 - 199 [facility] mg/dL [facility] Comment: Diabetes: >=200 mg/dL plus symp toms BUN 27 (H) 10 - 20 mg/dL [facility] Creatinine 1.07 0.80 - 1.50 mg/dL [facility] Sodium 143 135 - 145 mmol/L [facility] [...] Calcium 8.4 (L) 8.5 - 10.5 mg/dL [facility] Estimated GFR >60 >=60 [facility] Comment: The reported eGFR should be multiplied b y 1.2 for patients. The MDRD is not an appropriate measure o f renal function for patients with body mass extremes or in patients with acute kidney failure. http://[employer]/DHnkdep http://[employer]/DHMCnkf Specimen Anatomical Collection Method Collection Time Receive d Time (Source) Location / / Volume Laterality Blood specimen 10/07/2017 8:48 AM 018 8:50 (specimen) EDT AM EDT Resulting Agency Comment Spec In Lab Danette Maxwell APRN CHEMISTRY ORDERABLES Performing Organization Address City/State/[place] [address] (ABNORMAL) pro-Brain Natriuretic Peptide (10/07/2017 8:48 AM EDT) P athologist Signature ProBNP 1,170 (H) <=125 [facility] pg/mL [facility] Specimen Anatomical Collection Method Collection Time Receive d Time (Source) Location / / Volume Laterality Blood specimen 10/07/2017 8:48 AM 018 8:50 (specimen) EDT AM EDT Resulting Agency Comment Spec In Lab Danette Maxwell APRN CHEMISTRY ORDERABLES Performing Organization Address City/State/[place] [address] documented in this encounter Visit Diagnoses Diagnosis Chronic systolic heart failure documented in this encounter Care Teams Rubbing Bed Operator Relationship Specialty Start Date End Date Lovely Vicente MD PCP - General 04/16/[address] [place] [address] documented as of this encounter
--- OUTSIDE RECORDS SUMMARY | 2022-02-20 08:11 | XMS_ITS | Encounter Summary ---
:1945 Author Organization [facility] [place] [address] Care Team Providers Name Role Phone Lovely Vicente MD Primary Care Provider Encounter Details Date Type Department Care Team Description 08/30/2017 [facility] ischemia [facility] [address] [place], [place] VASCULAR SURGERY [address] [place] [address] [phone] Social History Tobacco Use Types Packs/Day Years [...] Smith MD - 08/30/2017 2:00 PM EST [facility] staff: Patient returns. He is doing well [...] Office Visit Cardiology Vitaliy Nobles MD [facility] CARDIOLOGY [place], [place] [address] (Wo rk) documented as of this encounter Visit Diagnoses Diagnosis Critical lower limb ischemia Unspecified circulatory system disorder documented in this encounter Care Teams District Leader Relationship Specialty Start Date End Date Lovely Vicente MD PCP - General 04/16/[address] [place] [address] documented as of this encounter
--- OUTSIDE RECORDS SUMMARY | 2022-02-20 08:11 | XMS_ITS | Encounter Summary ---
:1945 Author Organization [facility] [place] [address] Care Team Providers Name Role Phone Lovely Vicente MD Primary Care Provider Encounter Details Date Type Department Care Team Description 08/19/2017 Hospital Encounter XRay at [facility] Martha Teague, S/P CABG x [address] [facility] [place] [address] [place] [address] RD [phone] [facility] [place], [place] [address] (Wo rk) Social History [...] (LOPRESSOR) 25 mg 2 times daily. Tablet documented as of this encounter Plan of Treatment Upcoming Encounters Date Type Specialty Care Team Description 03/26/2022 Office Visit Cardiology Vitaliy Nobles MD [facility] ER CARDIOLOGY [place], [place] [address] (Wo rk) documented as of [...] status documented in this encounter Care Teams Rn Womens Health Relationship Specialty Start Date End Date Lovely Vicente MD PCP - General 04/16/[address] [place] [address] documented as of this encounter
--- OUTSIDE RECORDS SUMMARY | 2022-02-20 08:11 | XMS_ITS | Encounter Summary ---
:1945 Author Organization [place] [address] Care Team Providers Name Role Phone Lovely Vicente MD Primary Care Provider Encounter Details Date Type Department Care Team Description 09/07/2017 Office Visit Endocrinology at [facility] Maria Ines Stallings of [facility] [place] [address] CENTER [phone] ENDOCRINOLOGY DEPT [place], [place] [address] Social History Tobacco Use Types [...] [facility] ER DR TADEO [place], [place] [address] (Wo rk) documented as of this encounter Visit Diagnoses Diagnosis Hx of papillary thyroid carcinoma Personal history of malignant neoplasm o f thyroid documented in this encounter Care Teams Lock Corner Machine Operator Relationship Specialty Start Date End Date Lovely Vicente MD PCP - General 04/16/[address] [place] [address] documented as of this encounter
--- OUTSIDE RECORDS SUMMARY | 2022-02-20 08:11 | XMS_ITS | Encounter Summary ---
:1945 Author Organization [facility] [place] [address] Care Team Providers Name Role Phone Lovely Vicente MD Primary Care Provider Encounter Details Date Type Department Care Team Description 09/03/2017 Telephone Vascular Surgery at [facility] Ninfa Clark, [place] [address] Social History Tobacco Use Types Packs/Day [...] help with the discomfort of the change. Residential Therapist told the [facility] that I would ask [...] Nobles MD [facility] ER CARDIOLOGY [place], [place] [address] (Wo rk) documented as of this encounter Visit Diagnoses Not on filedocumented in this encounter Care Teams Woven Wood Shade Assembler Relationship Specialty Start Date End Date Lovely Vicente MD PCP - General 04/16/[address] [place] [address] documented as of this encounter
--- OUTSIDE RECORDS SUMMARY | 2022-02-20 08:11 | XMS_ITS | Encounter Summary ---
:1945 Author Organization [facility] [place] [address] Care Team Providers Name Role Phone Lovely Vicente MD Primary Care Provider Encounter Details Date Type Department Care Team Description 09/16/2017 Hospital [place] [address] Social History Tobacco Use Types Packs/Day [...] mg by mouth 0 01/16/2019 tablet daily. lidocaine (XYLOCAINE) Infuse 1-2 mL into VAC [...] Vitaliy Nobles MD [facility] CARDIOLOGY [place], [place] [address] (Wo rk) documented as of this encounter Procedures Procedure Name Priority Date/Time Associated Diagnosis Comme [facility] SURGICAL PATHOLOGY Routine 09/16/2017 7:28 AM Res ults for this REPORT EST procedure are i n the results section. documented in this encounter Results Surgical Pathology Report (09/16/2017 7:28 AM EST) Component Value Ref Test Analysis Performed At [facility] Range Method Time Signature Surgical [id number] ? Location: [facility] Report The signing pathologist has [...] Henrique Flower Verified: ??09/24/2017 ?Pathologist Performed at: ??-[facility] Dept. of Pathology, [place], [place] CLINICAL INFORMATION Specimen Submitted: A - [...] City/State/[place] [address] [facility] [address] documented in this encounter Visit Diagnoses Not on filedocumented in this encounter Care Teams Weed Inspector Relationship Specialty Start Date End Date Lovely Vicente MD PCP - General 04/16/[address] [place] [address] documented as of this encounter
--- OUTSIDE RECORDS SUMMARY | 2022-02-20 08:11 | XMS_ITS | Encounter Summary ---
:1945 Author Organization [facility] [place] [address] Care Team Providers Name Role Phone Lovely Vicente MD Primary Care Provider Reason for Referral Consultation (Routine) - Specialty Diagnoses / Procedures Referred By Contact Refer red To Contact W[facility] Healing Center Diagnoses Atheroembolism of foot, right Delayed surgical wound healing, subsequent encounter Aurelia Rivera PA [address] [facility] [place] [address] Referral ID Status Reason Start Date Expiration Date Visits V isits Requested Authorized [id number] Consult, 09/08/2017 03/07/2018 1 1 Test & Treat Reason for Visit Reason Comments Wound Check My foot hurts Encounter Details Date Type Department Care Team Description 09/07/2017 Office Visit Vascular Surgery at MiguelAurelia PA Atheroembolism of foot, right; [facility] [address] [facility] Delayed surgical wound healing, subseque nt encounter [facility] [place] [phone] Social History Tobacco Use Types Packs/Day Years [...] at home for VAC dressing changes from [facility]. Since his last visit his right forefoot wound [facility] [...] by Manny Mcknight MD at [facility] MAIN OR ??? PRO AMPUTATION FOOT, TRANSMETATARSAL Right 08/09/2017 AMPUTATION, TRANSMETATARSAL (WRVU 12.71) performed by Yonathan Smith MD at [facility] MAIN OR ??? PRO CABG, ARTERIAL, SINGLE N/A 07/07/2017 @CABG, USING ARTERIAL GRAFT;SINGLE ARTERIAL GRAFT (WRVU 33.75) performed by Yuan Retana MD at [facility] MAIN OR ??? PRO CABG, ARTERY-VEIN, TWO N/A 07/07/2017 @CABG, TWO VENOUS GRAFTS & ARTERIAL GRAFT (WRVU 7.93) performed by Yuan Retana MD at [facility] MAIN OR ??? PRO COLONOSCOPY, REMV LESN, SNARE 01/16/2014 COLONOSCOPY, POLYPECTOMY, REMOVAL LESION BY SNARE performed by Nohemi Jaimes MD at [facility] ENDOSCOPY ??? PRO DRESSING CHANGE UNDER ANESTHESIA Right 08/11/2017 (MSURG) DRESSING CHANGE (FOR OTHER THAN IVAN) UNDER ANES. (WRVU 0.86) performed by Lamar Smith MD at [facility] MAIN OR ??? PRO ENDOSCOPY W/VIDEO-ASST VEIN HARVEST, CABG Right 07/07/2017 ENDOSCOPIC HARVEST VEIN(S) FOR CABG (WRVU 0.31) performed by Yuan Retana MD at [facility] MAIN OR ??? PRO THYROIDECTOMY 03/28/2013 THYROIDECTOMY, TOTAL OR COMPLETE performed by Manny Mcknight MD at [facility] OR Social Hx: Social History Substance [...] Nobles MD [facility] CARDIOLOGY [place], [place] [address] (Wo rk) Scheduled Referrals Name Type Priority Associated Diagnoses Order S chedule Referral to Wound Outpatient Referral Routine Atheroembolism o f foot, Ordered: Clinic right 09/08/2017 Delayed surgical wound healing, subsequent encounter documented as of this encounter Visit Diagnoses Diagnosis Atheroembolism of foot, right Delayed surgical wound healing, subseque nt encounter documented in this encounter Care Teams Application Development Specialist Relationship Specialty Start Date End Date Lovely Vicente MD PCP - General 04/16/[address] [place] [address] [address] [place] [address] documented as of this encounter
--- OUTSIDE RECORDS SUMMARY | 2022-02-20 08:11 | XMS_ITS | Encounter Summary ---
:1945 Author Organization [facility] [place] [address] Care Team Providers Name Role Phone Lovely Vicente MD Primary Care Provider Reason for Visit Reason Comments Follow-up I'm having trouble with the VAC Encounter Details Date Type Department Care Team Description 08/26/2017 Office Visit Vascular Surgery at [facility], STEPHANIE Mercado Atheroembolism of foot, right; [facility] [address] Delayed surgical wound healing, initial encounter; [facility] VASCULAR SURG YEHUDA Acute on chronic systolic congestive hea rt failure ; [place], [place] [phone] Social History Tobacco Use Types Packs/Day Years [...] home and into the care of the [facility]. However, since discharge from [facility] he has had some difficulty with continuation [...] performed by Manny Mcknight MD at [facility] MAIN OR ??? PRO AMPUTATION FOOT, TRANSMETATARSAL Right 08/09/2017 AMPUTATION, TRANSMETATARSAL (WRVU 12.71) performed by Yonathan Smith MD at [facility] MAIN OR ??? PRO CABG, ARTERIAL, SINGLE N/A 07/07/2017 @CABG, USING ARTERIAL GRAFT;SINGLE ARTERIAL GRAFT (WRVU 33.75) performed by Yuan Retana MD at [facility] MAIN OR ??? PRO CABG, ARTERY-VEIN, TWO N/A 07/07/2017 @CABG, TWO VENOUS GRAFTS & ARTERIAL GRAFT (WRVU 7.93) performed by Yuan Retana MD at [facility] MAIN OR ??? PRO COLONOSCOPY, REMV LESN, SNARE 01/16/2014 COLONOSCOPY, POLYPECTOMY, REMOVAL LESION BY SNARE performed by Nohemi Jaimes MD at [facility] ENDOSCOPY ??? PRO DRESSING CHANGE UNDER ANESTHESIA Right 08/11/2017 (MSURG) DRESSING CHANGE (FOR OTHER THAN IVAN) UNDER ANES. (WRVU 0.86) performed by Lamar Smith MD at [facility] MAIN OR ??? PRO ENDOSCOPY W/VIDEO-ASST VEIN HARVEST, CABG Right 07/07/2017 ENDOSCOPIC HARVEST VEIN(S) FOR CABG (WRVU 0.31) performed by Yuan Retana MD at [facility] MAIN OR ??? PRO THYROIDECTOMY 03/28/2013 THYROIDECTOMY, TOTAL OR COMPLETE performed by Manny Mcknight MD at [facility] MAIN OR Social Hx: Social History [...] Nobles MD [facility] CARDIOLOGY [place], [place] [address] (Wo rk) documented as of [...] Component Value Ref Test Analysis Performed At [facility] Range Method Time Signature VB Text Department: Vascular Surgery Lab VASCUBASE Report Patient: [id number] (GREGORY HOANG) CPT: 76788 ICD10: T81.89XA;I75.021 Referring Physician: ARIK BLOOM ?? [...] Signature Glucose Lvl 98 65 - 199 [facility] [place] [facility] mg/dL [facility] Comment: Diabetes: >=200 mg/dL plus symp toms BUN 20 10 - 20 mg/dL [facility] Creatinine 1.17 0.80 - 1.50 mg/dL [facility] [...] estions. Chloride 98 98 - 107 mmol/L [facility] CO2 28 22 - 31 mmol/L [facility] Anion Gap 14 5 - 15 mmol/L [facility] Calcium 9.1 8.5 - 10.5 mg/dL [facility] Estimated GFR >60 >=60 [facility] Comment: The reported eGFR should be multiplied b y 1.2 for patients. The MDRD is not an appropriate measure o f renal function for patients with body mass extremes or in patients with acute kidney failure. http://[employer].BRAND[employer] - Shop. Like a Man./DHnkdep http://[employer]/DHMCnkf Specimen Anatomical Collection Method Collection Time Receive d Time (Source) Location / / Volume Laterality Blood specimen 08/26/2017 2:00 PM 018 2:15 (specimen) EST PM EST Resulting Agency Comment Spec In Lab Danette Maxwell APRN CHEMISTRY ORDERABLES Performing Organization Address City/[facility]/[place] [address] (ABNORMAL) pro-Brain Natriuretic Peptide (08/26/2017 2:00 PM EST) P athologist Signature ProBNP 2,373 (H) <=125 [facility]mL [facility] Specimen Anatomical Collection Method Collection Time Receive d Time (Source) Location / / Volume Laterality Blood specimen 08/26/2017 2:00 PM 018 2:15 (specimen) EST PM EST Resulting Agency Comment Spec In Lab Danette Maxwell APRN CHEMISTRY ORDERABLES Performing Organization Address City/State/[place] [address] documented in this encounter Visit Diagnoses Diagnosis Atheroembolism of foot, right Delayed surgical wound healing, initial encounter Acute on chronic systolic congestive hea rt failure Acute on chronic systolic heart failure Ischemic cardiomyopathy Other specified forms of chronic ischemi c heart disease documented in this encounter Care Teams Musician Instrumental Relationship Specialty Start Date End Date Lovely Vicente MD PCP - General 04/16/[address] [place] [address] documented as of this encounter
--- OUTSIDE RECORDS SUMMARY | 2022-02-20 08:11 | XMS_ITS | Encounter Summary ---
:1945 Author Organization [facility] [place] [address] Care Team Providers Name Role Phone Lovely Vicente MD Primary Care Provider Encounter Details Date Type Department Care Team Description 08/25/2017 Telephone Pain Management at [facility] [place]eno, [place] [address] Social History Tobacco Use Types Packs/Day [...] Management Center Preauthorization Request Patient: Don Fatima [id number] Fax received from [employer] denying prior authorization for Lidocaine Patches prescribed by Barbra Soares APRN. RX insurance plan: [employer] insurance telephone: [phone] Patient Diagnosis: right foot pain secondary to PVD and ischemia ? Previous medications attempted: Tylenol, Tramadol, Dilaudid Authorization/Reference number: [id number] _x_ denied, provider and patient informed _x_ appeal initiated by provider, patient informed Angeles Rodrigez, RN documented in this encounter Plan of Treatment Upcoming Encounters Date Type Specialty Care Team Description 03/26/2022 Office Visit Cardiology Vitaliy Nobles MD [facility] CARDIOLOGY [place], [place] [address] (Wo rk) documented as of this encounter Visit Diagnoses Not on filedocumented in this encounter Care Teams Tinning Equipment Tender Relationship Specialty Start Date End Date Lovely Vicente MD PCP - General 04/16/[address] [place] [address] documented as of this encounter
--- OUTSIDE RECORDS SUMMARY | 2022-02-20 08:11 | XMS_ITS | Encounter Summary ---
:1945 Author Organization [place] [address] Care Team Providers Name Role Phone Lovely Vicente MD Primary Care Provider Reason for Visit Reason Onset Date Comments VNA Calls 08/30/2017 Encounter Details Date Type Department Care Team Description 08/30/2017 Telephone [facility]ascular Surgery [place] [facility] [place] Reid RN [facility] Calls [facility] [place] [address] Social History Tobacco Use Types Packs/Day [...] 08/30/2017 11:16 AM EST Caller: Alfonso at [facility] [phone] Reason for call: Changing his wound vac [...] Alfonso who had [facility] who advised him [...] Visit Cardiology Vitaliy Nobles MD [facility] CARDIOLOGY [place], [place] [address] (Wo rk) documented as of this encounter Visit Diagnoses Not on filedocumented in this encounter Care Teams Poll Watcher Relationship Specialty Start Date End Date Lovely Vicente MD PCP - General 04/16/[address] [place] [address] documented as of this encounter
--- OUTSIDE RECORDS SUMMARY | 2022-02-20 08:12 | XMS_ITS | Encounter Summary ---
:1945 [place] [address] Care Team Providers Name Role Phone Lovely Vicente MD Primary Care Provider Reason for Visit Auth/Cert Specialty Diagnoses / Procedures Referred By Contact Refer red To Contact Diagnoses Critical lower limb ischemia CELLULITIS RT FOOT Procedures EMERGENCY Referral ID Status Reason Start Date Expiration Date Visits Requ ested Visits Authorized [id number] 1 1 Encounter Details Date Type Department Care Team Description 08/06/2017 - Hospital Encounter 5 Yonathan Oneill lower limb ischemia; 08/16/2017 Su Flores MD Ischemic foot Hospital [facility] [address] [phone] Social History Tobacco Use Types Packs/Day Years [...] 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 [...] Dorsalis Pedis (Ankle) Artery ?132 ? 0.94 ??Will-Biphasic ? Posterior Tibial (Ankle) Artery ??154 ? 1.10 ??Will-Biphasic ? Fourth Toe ? 67 ?0.48 ?? [...] the foot. Discharge Conditions/Prognosis: Good Discharge to: [facility] Rehab Discharge Medications: Your Medications [...] For any problems or questions please call [phone] ZELDA Smith, tight cooper Nurse Clinician For issues on weeknights after 5pm and weekends please call [phone] and ask for the Vascular Fellow non destructive evaluation manager. General Instructions None Future Appointments and Orders Future Appointments Provider Department Dept Phone 08/26/2017 4:00 PM Aurelia Rivera PA [facility] [phone] 09/07/2017 3:00 PM LAB, THREE L Lab 3L [facility] [phone] 09/07/2017 4:00 PM Luz Prescott MD Endocrinology [facility] [phone] 09/09/2017 8:00 AM Barbra Soares APRN [facility] Management [facility] [phone] Please bring a list of your current [...] For any problems or questions please call [phone] ZELDA Smith, tight cooper Nurse Clinician For issues on weeknights after 5pm and weekends please call [phone] and ask for the Vascular Fellow non destructive evaluation manager. documented in this encounter Medications at Time [...] daily. Tablet documented as of this encounter Progress Notes Shirin Wolf RN - 08/16/2017 11:14 AM EST Office of Care Management Discharge Note Patient Destination: [facility] ([facility]) [address] [place] [address] Transportation: with (at bedside) Time of Discharge: by 12 noon Level of Care: swing Patient Aware: yes Family Notified: yes Md to call report to: Yissel Quintero RECORDS MANAGEMENT ENGINEER already called RN to call report to: [phone] Shirin Wolf Office of Care Management Pager [phone] Shirin Wolf RN - 08/16/2017 10:50 AM EST [facility] has offered pt swing bed. Pt and accept bed. will transport via car. RECORDS MANAGEMENT ENGINEER Yissel Quintero aware; d/c paperwork will be completed by 12 noon. [facility] requests pt arrival by 1400 today; RECORDS MANAGEMENT ENGINEER, RN, and family aware. RECORDS MANAGEMENT ENGINEER called [facility] and was told that they prefer pt to arrive with wound vac dressing applied but clamped. RECORDS MANAGEMENT ENGINEER applied new wound vac dressing. RN has [facility] number to call report. PASSR completed; RECORDS MANAGEMENT ENGINEER paged to request provider signature in highlighted space. Indigo from [facility] notified via email that home wound vac now cancelled; [facility] has picked up from room and order cancelled. Packet started and provided to rn community. Medicare important message explained to patient, patient signed. Copy provided to patient and signature page to OCM for inclusion in pt EMR. Radha Georges - 08/16/2017 10:34 AM EST Office of Care Management/Kettle Cook Patient Name: Gregory Hoang : 1945 Patient has been offered a swing bed at [facility]. The patient will be transported by private transportation. No MD to MD report necessary Please call Nursing Report to [phone], ask for back roll lathe operator. Info to accompany patient: Narcotic Prescriptions Copies of Medication Administration Records and IV sheets for past 10 days. Plan: Kettle Cook will be available to the patient and Yarn Sizer-RN and/or Diploma Maker for further assistance. Patient will be discharged to: [facility] [id number] Radha Powers, Kettle Cook Mira Black, VAMSI - 08/15/2017 10:05 PM EST [address] Flores to ask if he wanted to hold metoprolol dose. BP 95/58. OK to hold this dose Courtney Brito - 08/15/2017 3:26 PM EST Office of Care Management(OCM)/Kettle Cook(RS)/ D/C Planning re : Patient is medically ready for d/c today. RS has been in contact with [facility] to see if they could offer a bed. [facility] is still reviewing the case and need their MD to review chart prior to accepting or declining. OCM team needs to check in with [facility] tomorrow to check on status. 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 Vac in place. Rehab referrals ongoing. Can ambulate in hallway. Change VAC at bedside today. Naty Colindres RN - 08/14/2017 1:33 PM EST Patient Name: Gregory Hoang Patient Age: 72 y.o. Birthdate: 1945 Admit date: 08/06/2017 Attending Physician: Yonathan Smith MD We want him to go to a place for intensive therapy and not at a fdc where he will be just sitting there and not getting any therapy. . Contacted by direct care RN, who said that patient and would like information about patient's referral to: [facility] PHONE: [phone] FAX: [phone] CM spoke with RS who said that [...] rehab. Await recommendations from PT. Covering pager #[phone]. 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 Incubator Operator Kaitlin Saha, RN Pager #[phone] Payam Rosales - 08/13/2017 2:37 PM EST Senior Financial Accountant Encounter Note Patient Name: Gregory Hoang : [id number] MR#: [id number] Admit Date: 08/06/2017 1:41 PM Hospital Day 7 days Narrative: Visited to introduce and assess acceptance of Senior Financial Accountant services. Pt was awake, alert, oriented and in chair and family was there. Assessment:Patient coping positively with stresses of illness/hospitalization at this time. Pt says that he is hoping to get better and his family was there. Pt says that he has family care and supportand taking one day at time. Intervention and Outcome: Provided emotional support and encouraging presence. 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 Patient Active [...] - 08/12/2017 1:06 PM EST The patient/patient service representative has been provided a list of Home Health Agencies/DME vendors which serve their preferred geographic area. A letter describing our affiliations was reviewed with them and theywere educated about their right to choose where referrals are placed. Patient requests referral to [facility]. PHONE: [phone] FAX: [phone]. And Home NPWT (Negative Pressure Wound Therapy) aka wound vac device made available to pt. Serial # confirmed. Reviewed [facility] Proof of Delivery/Assignment of Benefits Statement(POD/AOB) Form w patient or authorized agent signing on behalf of patient. Copy of POD/AOB provided to pt and other copy faxed to [employer] @ fax# [phone] Expected date of discharge: 08/12/2017. 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 Address: [address] [place] [address] [place] [address] (home) Mobile: Telephone Information: Referring Provider: No [...] performed by Manny Mcknight MD at [facility] MAIN OR ??? PRO CABG, ARTERIAL, SINGLE N/A 07/07/2017 @CABG, USING ARTERIAL GRAFT;SINGLE ARTERIAL GRAFT (WRVU 33.75) performed by Yuan Retana MD at [facility] MAIN OR ??? PRO CABG, ARTERY-VEIN, TWO N/A 07/07/2017 @CABG, TWO VENOUS GRAFTS & ARTERIAL GRAFT (WRVU 7.93) performed by Yuan Retana MD at [facility] MAIN OR ??? PRO COLONOSCOPY, REMV LESN, SNARE 01/16/2014 COLONOSCOPY, POLYPECTOMY, REMOVAL LESION BY SNARE performed by Nohemi Jaimes MD at [facility] ENDOSCOPY ??? PRO ENDOSCOPY W/VIDEO-ASST VEIN HARVEST, CABG Right 07/07/2017 ENDOSCOPIC HARVEST VEIN(S) FOR CABG (WRVU 0.31) performed by Yuan Retana MD at [facility] MAIN OR ??? PRO THYROIDECTOMY 03/28/2013 THYROIDECTOMY, TOTAL OR COMPLETE performed by Manny Mcknight MD at 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 Heparin gtt continues to [...] of : 1945 AGE 72 y.o. Address: [address] [place] [address] [place] [address] (home) Mobile: Telephone Information: Referring Provider: No [...] performed by Manny Mcknight MD at [facility] MAIN OR ??? PRO CABG, ARTERIAL, SINGLE N/A 07/07/2017 @CABG, USING ARTERIAL GRAFT;SINGLE ARTERIAL GRAFT (WRVU 33.75) performed by Yuan Retana MD at [facility] MAIN OR ??? PRO CABG, ARTERY-VEIN, TWO N/A 07/07/2017 @CABG, TWO VENOUS GRAFTS & ARTERIAL GRAFT (WRVU 7.93) performed by Yuan Retana MD at [facility] MAIN OR ??? PRO COLONOSCOPY, REMV LESN, SNARE 01/16/2014 COLONOSCOPY, POLYPECTOMY, REMOVAL LESION BY SNARE performed by Nohemi Jaimes MD at [facility] ENDOSCOPY ??? PRO ENDOSCOPY W/VIDEO-ASST VEIN HARVEST, CABG Right 07/07/2017 ENDOSCOPIC HARVEST VEIN(S) FOR CABG (WRVU 0.31) performed by Yuan Retana MD at [facility] MAIN OR ??? PRO THYROIDECTOMY 03/28/2013 THYROIDECTOMY, TOTAL OR COMPLETE performed by Manny Mcknight MD at 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 Unsuccessful draw attempt, another waiter/waitress buffet will come [facility] to collect blood for PTT test. 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 Continue pain control, IV antibiotics, and heparin infusion. Given that his disease appears to be diabetic, and tibial - pedal, OR tomorrow for angiogram. NPO at midnight tonight. Viry Starkey MD Vascular Surgery Melab Cruz RN - 08/08/2017 6:41 AM EST Per lab, pt blood glucose 229. Vascular resident non destructive evaluation manager and will forward result to the team prior to rounds. 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 [...] performed by Manny Mcknight MD at [facility] MAIN OR ??? PRO CABG, ARTERIAL, SINGLE N/A 07/07/2017 @CABG, USING ARTERIAL GRAFT;SINGLE ARTERIAL GRAFT (WRVU 33.75) performed by Yuan Retana MD at [facility] MAIN OR ??? PRO CABG, ARTERY-VEIN, TWO N/A 07/07/2017 @CABG, TWO VENOUS GRAFTS & ARTERIAL GRAFT (WRVU 7.93) performed by Yuan Retana MD at [facility] MAIN OR ??? PRO COLONOSCOPY, REMV LESN, SNARE 01/16/2014 COLONOSCOPY, POLYPECTOMY, REMOVAL LESION BY SNARE performed by Nohemi Jaimes MD at [facility] ENDOSCOPY ??? PRO ENDOSCOPY W/VIDEO-ASST VEIN HARVEST, CABG Right 07/07/2017 ENDOSCOPIC HARVEST VEIN(S) FOR CABG (WRVU 0.31) performed by Yuan Retana MD at [facility] MAIN OR ??? PRO THYROIDECTOMY 03/28/2013 THYROIDECTOMY, TOTAL OR COMPLETE performed by Manny Mcknight MD at [facility] MAIN OR Functional Status/Social Hx: Quit [...] left blue toes with CTA showing R SHOWROOM SALES CONSULTANT pseudoaneurysm (now thrombosed) and occluded ATs [...] 2.5x80 5. Completion RLE angiogram 6. L SHOWROOM SALES CONSULTANT angiogram 7. 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 - L SHOWROOM SALES CONSULTANT angriogram demonstrated: High femoral bifurcation over the proximal half of the femoral head. L SHOWROOM SALES CONSULTANT access in the distal L SHOWROOM SALES CONSULTANT. - Closure device: Mynx Technical Procedure: [...] for a 45cm 5F Destination. V18 and [place] and QuickCross catheters were used to select [...] 5F. A stationed picture of the L SHOWROOM SALES CONSULTANT was performed as the patient was noted to have a very high bifurcation. Access appeared in the distal R SHOWROOM SALES CONSULTANT. Closure and sheath removal was performed [...] PM EST 1440 report called to 5 alba nurse Tessa AGUSTIN documented in this encounter [...] with pt and pt's spouse. Discharge to [facility]. Goal: Individualization & Mutuality Outcome: [...] sit/sit to supine -- Bed Mobility Goal, Addison Level independent -- Bed Mobility Goal, Date [...] days -- Transfer Training Goal, Activity Type lgy-vk-sqmyj/dallh-ui-jke -- Transfer Train Goal, Addison Level conditional independence -- Transfer Train Goal, [...] call cabello within reach, Hourly rounding by RN/FELLER HAND. Bed alarm / Chair alarm. Patient-specific fall [...] Smith MD - 08/15/2017 6:28 PM EST [facility] [place] Patient Name: Gregory Hoang : [id number] MR#: [id number] Case Date: 08/09/2017 Surgeon: Surgeon(s) and Role: [...] 2.5x80 5. Completion RLE angiogram 6. L SHOWROOM SALES CONSULTANT angiogram 7. Mynx closure Precautions/Restrictions: fall, [...] feet/ bed -> bathroom). Anticipated Discharge Disposition: long term facility, other (see comments) (or swing bed) Pager: [phone] BASSAM ELIAS, PT 08/14/2017 Inpatient Physical Therapy [...] to Achieve by discharge Gait Training Goal, Addison Level conditional independence;set up required Gait Training [...] these facilities over the weekend except for [facility]. CM spoke with [facility] CM Drea Sandhu, VAMSI who said that they do not anticipate any beds over the weekend. Reviewed with patient/ that they need to be aware that patient will need to take the first bed offered at the facilities that they make referrals to. Their choices are: 1- [facility] PHONE: [phone] FAX: [phone] 2- [facility] ([facility]) [address] [place] [address] 3- [facility]) [address] [place] [address] I have discussed Medicare/Private Insurance [...] RS/CM on Wednesday to follow-up. Covering pager #[phone] for today. Plan of Care - Henrique [...] with additional findings of pseudoaneurysm on R SHOWROOM SALES CONSULTANT and bilateral anterior tibial artery occlusions. [...] an outpatient once discharged. Have patient call [phone] to set up an appointment. Follow-up: Dermatology will sign-off for now. Please do not hesitate to contact us if you have any questions orconcerns. Impression and Recommendations discussed with primary team on 08/13/2017. Karo Hnederson MD Resident in Dermatology Section of Dermatology, Department of Surgery [facility] Pager [phone] Patient seen and evaluated with staff [employer] Department Head: Halima Cordero MD Section of Dermatology [facility] Level of Resident Supervision: Direct Supervision [...] 4. Balloon angioplasty of R PT with Elezaar 2.5x80 5. Completion RLE angiogram 6. L SHOWROOM SALES CONSULTANT angiogram 7. Mynx closure Active Non-Hospital [...] home with home health ([facility] PT[facility]OT) Pager: [phone] YASIR TELLO OT 08/12/2017 Occupational Therapy Rehabilitation [...] 2.5x80 5. Completion RLE angiogram 6. L SHOWROOM SALES CONSULTANT angiogram 7. Mynx closure Past Medical [...] with 24/7 assistance and maximal services) Pager: [phone] NICHOLAS MORA, PT 08/12/2017 Physical Therapy Rehabilitation [...] sit/sit to supine -- Bed Mobility Goal, Addison Level independent -- Bed Mobility Goal, Outcome Achieved -- goal ongoing Goal: Gait Training Goal Stand Alone Therapy Goal Outcome: Ongoing (Interventions Implemented as Appropriate) 08/11/17 1310 08/12/17 1510 Gait Training Goal Gait Training Goal, Date Established 08/11/17 -- Gait Training Goal, Time to Achieve 5 - 7 days -- Gait Training Goal, Addison Level conditional independence -- Gait Training Goal, [...] days -- Transfer Training Goal, Activity Type rlj-kb-xuler/hvjgb-yl-csw -- Transfer Train Goal, Addison Level conditional independence -- Transfer Training Goal, [...] Smith MD - 08/11/2017 2:52 PM EST [facility] [place] Patient Name: Gregory Hoang : [id number] MR#: [id number] Case Date: 08/11/2017 Surgeon: Surgeon(s) and Role: [...] 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 Completion RLE angiogram 6. L SHOWROOM SALES CONSULTANT angiogram 7. Mynx closure He is [...] Anticipated Discharge Disposition: inpatient rehabilitation facility Pager: [phone] LAWRENCE GONZALEZ, PT 08/11/2017 Physical Therapy Rehabilitation [...] to sit/sit to supine Bed Mobility Goal, Addison Level independent Goal: Gait Training Goal Stand Alone Therapy Goal Outcome: Ongoing (Interventions Implemented as Appropriate) 08/11/17 1310 Gait Training Goal Gait Training Goal, Date Established 08/11/17 Gait Training Goal, Time to Achieve 5 - 7 days Gait Training Goal, Addison Level conditional independence Gait Training Goal, Assist [...] 7 days Transfer Training Goal, Activity Type gwg-uc-hthgk/qnpwg-dn-xcb Transfer Train Goal, Addison Level conditional independence Plan of [facility] Annetta Sandoval RN - 08/11/2017 7:21 [...] call cabello within reach, Hourly rounding by RN/FELLER HAND. Bed alarm / Chair alarm. ? Patient-specific [...] 04/05/2013 Hospitalizations Within the Past 30 Days: [facility] [place]/2017 Anticipated Length Of Stay (If known): Expected Length of Hospitalization: 5-7 days2-3 days Current Decision-Making Capacity: Alert and oriented x 4 Advance Care Planning: on file Kisha Hoang [facility] [phone] Current Coping/Education/Information Needs: pt and spouse state [...] Health/Prescription Coverage: Primary Insurance: MEDICARE Secondary Insurance: [employer] [facility] Prescription Coverage: See above Preferred Pharmacy: [id number] Other: N/A Primary Care Provider: Lovely Vicente MD [phone] Patient/Caregiver Goals of Treatment: Patient plans to return home when medically ready Potential Needs for Transition of Care: Rehab/SNF: N/A Home Health: [facility]. DME: pt has a cane and [...] of care planning. Kaitlin Saha RN Pager: [phone] Plan of Care - Melba Jaramillo RN [...] Overview Goal: Plan of Care Review 08/08/17 5964 Coping/Psychosocial Plan Of Care Reviewed With patient [...] call cabello within reach, Hourly rounding by RN/FELLER HAND. Bed alarm / Chair alarm. Patient-specific fall [...] at bedside and MD TEAM Carrying pager [phone] contacted (via Radio page) and notified of [...] MD [facility] CARDIOLOGY [place], [place] 0375 (Wo rk) documented as of [...] section. TYPE AND SCREEN Routine 08/09/2017 1:10 ([facility]SHANDA) AM EST BASIC METABOLIC PANEL Routine 08/09/2017 [...] Signature POC Glucose 160 65 - 199 [facility] mg/dL [facility] Comment: Supplemental ranges: <140 mg/dL before meals <180 mg/dL all other times of the day Specimen Anatomical Collection Method Collection Time Receive d Time (Source) Location / / Volume Laterality Blood specimen 08/16/2017 7:28 AM 018 7:28 (specimen) EST AM EST Yonathan Smith MD POINT OF CARE TEST ORDERABLE S Performing Organization Address City/State/[place] [address] (ABNORMAL) Differential, Automated (08/16/2017 5:08 AM EST) Patholo gist Method Time Signature Neutrophils % 73.9 % [facility] Neutr Abs (ANC) 5.37 1.70 - [facility] 6.10 [facility] x10(3)/[facility] LABORATORY Lymphocytes % 10.1 % [facility] Lymphocytes Abs 0.7 (L) 0.9 - 3.2 [facility] x10(3)/[facility] LABORATORY Monocytes % 10.1 % [facility] Monocyte Abs 0.7 0.3 - 0.9 [facility] x10(3)/[facility] LABORATORY Eosinophils % 5.1 % [facility] Eosinophils Abs 0.4 0.0 - 0.4 [facility] x10(3)/[facility] LABORATORY Basophils % 0.4 % [facility] Basophils Abs 0.0 0.0 - 0.1 [facility] x10(3)/[facility] LABORATORY Immature Gran % 0.40 [...] 0.00 - 0.04 x10(3)/[facility]ORY Specimen Anatomical Collection Method Collection Time Receive d Time (Source) Location / / Volume Laterality Blood specimen 08/16/2017 5:08 AM 018 5:20 (specimen) EST AM EST Resulting Agency Comment Spec In Lab Yonathan Smith MD HEMATOLOGY ORDERABLES Performing Organization Address City/State/[place] [address] (ABNORMAL) Hemogram (08/16/2017 5:08 AM EST) Analysis Performed At Patho logist Time Signature WBC 7.3 4.0 - 9.5 [facility] x10(3)/[facility] LABORATORY RBC 3.36 (L) 4.58 - [facility] 5.54 [facility] x10(6)/[facility] LABORATORY Hemoglobin 9.7 (L) 13.7 - [facility] gm/dL [facility] Hematocrit 30.3 (L) 40.5 - [facility] 48.5 % [facility] MCV 90.2 82.9 - [facility] 93.1 [facility] LABORATORY MCH 28.9 27.5 - [facility]BAR[facility] DAVIS 32.1 pg [facility] MCHC 32.0 32.0 - [facility] 35.7 gm/dL [facility] Platelets 282 145 - 357 [facility] x10(3)/[facility] LABORATORY RDWSD 53.9 (H) 36.0 - [place] [facility] 45.0 [facility] LABORATORY RDWCV 16.5 (H) 11.4 - [facility] 13.8 % [facility] LABORATORY MPV 9.0 7.6 - 12.9 [facility] LABORATORY nRBC % Auto 0.0 % [facility] LABORATORY nRBC Abs Auto 0.000 0.000 - [facility] 0.000 [facility] x10(3)/[facility] LABORATORY Specimen Anatomical Collection Method Collection Time Receive d Time (Source) Location / / Volume Laterality Blood specimen 08/16/2017 5:08 AM 018 5:20 (specimen) EST AM EST Resulting Agency Comment Spec In Lab Yonathan Smith MD HEMATOLOGY ORDERABLES Performing Organization Address City/State/[place] [address] (ABNORMAL) Basic Metabolic Panel (non-fasting) (08/16/2017 5:08 AM EST) P athologist Signature Glucose Lvl 141 65 - 199 [facility] mg/dL [facility] LABORATORY Comment: Diabetes: >=200 [...] LABORATORY Calcium 8.7 8.5 - 10.5 mg/dL [facility] LABORATORY Estimated GFR 57 (L) >=60 [facility] LABORATORY Comment: The reported eGFR should be multiplied b y 1.2 for patients. The MDRD is not an appropriate measure o f renal function for patients with body mass extremes or in patients with acute kidney failure. [email or web address] [email or web address] Specimen Anatomical Collection Method Collection Time Receive d Time (Source) Location / / Volume Laterality Blood specimen 08/16/2017 5:08 AM 018 5:20 (specimen) EST AM EST Resulting Agency Comment Spec In Lab Yonathan Smith MD CHEMISTRY ORDERABLES Performing Organization Address [facility] Phon e Number [address] (ABNORMAL) Prothrombin Time (08/16/2017 5:08 AM EST) P athologist Signature PT 25.2 (H) 11.8 - 14.0 [facility] LABORATORY INR 2.3 (H) 0.9 [...] Smith MD HEMATOLOGY ORDERABLES Performing Organization Address [facility] Code Phon e Number [address] POCT Glucose (08/16/2017 4:09 AM EST) athologist Signature POC Glucose 147 65 - 199 [place] mg/dL [facility] LABORATORY Comment: Supplemental ranges: <140 mg/dL before meals <180 mg/dL all other times of the day Specimen Anatomical Collection Method Collection Time Receive d Time (Source) Location / / Volume Laterality Blood specimen 08/16/2017 4:09 AM 018 4:09 (specimen) EST AM EST Yonathan Smith MD POINT OF CARE TEST ORDERABLE S Performing Organization Address City/State/ZIP Code Phon e Number [address] POCT Glucose (08/15/2017 11:56 PM EST) athologist Signature POC Glucose 176 65 - 199 [facility]dL [facility] LABORATORY Comment: Supplemental ranges: <140 mg/dL before meals <180 mg/dL all other times of the day Specimen Anatomical Collection Method Collection Time Receive d Time (Source) Location / / Volume Laterality Blood specimen 08/15/2017 11:56 8 (specimen) PM EST 11:56 PM EST Yonathan Smith MD POINT OF CARE TEST ORDERABLE S Performing Organization Address City/State/[place] [address] POCT Glucose (08/15/2017 8:05 PM EST) athologist Signature POC Glucose 136 65 - 199 [place] [facility] mg/dL [facility] LABORATORY Comment: Supplemental ranges: <140 mg/dL before meals <180 mg/dL all other times of the day Specimen Anatomical Collection Method Collection Time Receive d Time (Source) Location / / Volume Laterality Blood specimen 08/15/2017 8:05 PM 018 8:05 (specimen) EST PM EST Yonathan Smith MD POINT OF CARE TEST ORDERABLE S Performing Organization Address City/State/[place] [address] (ABNORMAL) POCT Glucose (08/15/2017 4:50 PM EST) athologist Signature POC Glucose 232 (H) 65 - 199 [place] [facility] mg/dL [facility] LABORATORY Comment: Supplemental ranges: <140 mg/dL before meals <180 mg/dL all other times of the day Specimen Anatomical Collection Method Collection Time Receive d Time (Source) Location / / Volume Laterality Blood specimen 08/15/2017 4:50 PM 018 4:50 (specimen) EST PM EST Yonathan Smith MD POINT OF CARE TEST ORDERABLE S Performing Organization Address City/State/[place] [address] POCT Glucose (08/15/2017 12:04 PM EST) athologist Signature POC Glucose 135 65 - 199 [facility]dL [facility] LABORATORY Comment: Supplemental ranges: <140 mg/dL before meals <180 mg/dL all other times of the day Specimen Anatomical Collection Method Collection Time Receive d Time (Source) Location / / Volume Laterality Blood specimen 08/15/2017 12:04 8 (specimen) PM EST 12:04 PM EST Yonathan Smith MD POINT OF CARE TEST ORDERABLE S Performing Organization Address City/State/[place] [address] POCT Glucose (08/15/2017 7:36 AM EST) athologist Signature POC Glucose 124 65 - 199 [facility] mg/dL [facility] LABORATORY Comment: Supplemental ranges: <140 mg/dL before meals <180 mg/dL all other times of the day Specimen Anatomical Collection Method Collection Time Receive d Time (Source) Location / / Volume Laterality Blood specimen 08/15/2017 7:36 AM 018 7:36 (specimen) EST AM EST Yonathan Smith MD POINT OF CARE TEST ORDERABLE S Performing Organization Address City/State/[place] [address] (ABNORMAL) Differential, Automated (08/15/2017 6:22 AM EST) Patholo gist Method Time Signature Neutrophils % 76.1 % [facility] LABORATORY Neutr Abs (ANC) 6.62 (H) 1.70 - [facility] 6.10 [facility] x10(3)/[facility] L LABORATORY Lymphocytes % 9.3 % [facility] LABORATORY Lymphocytes Abs 0.8 (L) 0.9 - 3.2 [facility] x10(3)/[facility] LABORATORY Monocytes % 9.4 % [facility] LABORATORY Monocyte Abs 0.8 0.3 - 0.9 [facility] x10(3)/[facility] LABORATORY Eosinophils % 4.0 % [facility] LABORATORY Eosinophils Abs 0.4 0.0 - 0.4 [facility] x10(3)/[facility] LABORATORY Basophils % 0.6 % [facility] LABORATORY Basophils Abs 0.0 0.0 - 0.1 [place] 709420(3)/[facility] LABORATORY Immature Gran % 0.60 [...] Gran Abs 0.05 (H) 0.00 - 0.04 x10(3)/[facility] LABORATORY Specimen Anatomical Collection Method Collection Time Receive d Time (Source) Location / / Volume Laterality Blood specimen 08/15/2017 6:22 AM 018 6:33 (specimen) EST AM EST Resulting Agency Comment Spec In Lab Yonathan Smith MD HEMATOLOGY ORDERABLES Performing Organization Address City/State/[place] [address] (ABNORMAL) Hemogram (08/15/2017 6:22 AM EST) Analysis Performed At [facility] logist Time Signature WBC 8.7 4.0 - 9.5 [facility] x10(3)/[facility] LABORATORY RBC 3.21 (L) 4.58 - [place] 5.54 [facility] x10(6)/[facility] LABORATORY Hemoglobin 9.1 (L) 13.7 - [facility] 16.5 gm/dL [facility] LABORATORY Hematocrit 29.0 (L) 40.5 - [facility] 48.5 % [facility] LABORATORY MCV 90.3 82.9 - [facility] 93.1 [facility] LABORATORY MCH 28.3 27.5 - [place] [facility] 32.1 pg [facility] LABORATORY MCHC 31.4 (L) 32.0 - [place] [facility] 35.7 gm/dL [facility] LABORATORY Platelets 254 145 - 357 [facility] x10(3)/[facility] LABORATORY RDWSD 53.9 (H) 36.0 - [facility] 45.0 [facility] LABORATORY RDWCV 16.3 (H) 11.4 - [facility] 13.8 % [facility] LABORATORY MPV 8.8 7.6 - 12.9 [facility] LABORATORY nRBC % Auto 0.0 % [facility] LABORATORY nRBC Abs Auto 0.000 0.000 - [facility] 0.000 [facility] x10(3)/[facility] LABORATORY Specimen Anatomical Collection Method Collection Time Receive d Time (Source) Location / / Volume Laterality Blood specimen 08/15/2017 6:22 AM 018 6:33 (specimen) EST AM EST Resulting Agency Comment Spec In Lab Yonathan Smith MD HEMATOLOGY ORDERABLES Performing Organization Address City/State/[place] [address] (ABNORMAL) Basic Metabolic Panel (non-fasting) (08/15/2017 6:22 AM EST) athologist Signature Glucose Lvl 118 65 - 199 [facility] mg/dL [facility] LABORATORY Comment: Diabetes: >=200 mg/dL plus symp toms BUN 27 (H) 10 - 20 mg/dL [facility] LABORATORY Creatinine 1.12 0.80 - 1.50 mg/dL [facility] LABORATORY Sodium 138 135 - 145 mmol/L [facility] LABORATORY Potassium 4.6 3.5 - 5.0 mmol/L [facility] LABORATORY Calcium 8.8 8.5 - 10.5 mg/dL [facility] LABORATORY Estimated GFR >60 >=60 [facility] LABORATORY Comment: The reported eGFR should be multiplied b y 1.2 for patients. The MDRD is not an appropriate measure o f renal function for patients with body mass extremes or in patients with acute kidney failure. [email or web address] [email or web address] Specimen Anatomical Collection Method Collection Time Receive d Time (Source) Location / / Volume Laterality Blood specimen 08/15/2017 6:22 AM 018 6:33 (specimen) EST AM EST Resulting Agency Comment Spec In Lab Yonathan Smith MD CHEMISTRY ORDERABLES Performing Organization Address City/State/[place] [address] (ABNORMAL) Prothrombin Time (08/15/2017 6:22 AM EST) athologist Signature PT 21.9 (H) 11.8 - 14.0 [facility] LABORATORY INR 1.9 (H) 0.9 [...] Smith MD HEMATOLOGY ORDERABLES Performing Organization Address City/[facility]/ZIP Code Phon e Number [address] POCT Glucose (08/15/2017 4:33 AM EST) athologist Signature POC Glucose 164 65 - 199 [place] [facility] mg/dL [facility] LABORATORY Comment: Supplemental ranges: <140 mg/dL before meals <180 mg/dL all other times of the day Specimen Anatomical Collection Method Collection Time Receive d Time (Source) Location / / Volume Laterality Blood specimen 08/15/2017 4:33 AM 018 4:33 (specimen) EST AM EST Yonathan Smith MD POINT OF CARE TEST ORDERABLE S Performing Organization Address City/[facility]/ZIP Code Phon e Number [address] POCT Glucose (08/15/2017 12:12 AM EST) athologist Signature POC Glucose 89 65 - 199 [place] [facility] mg/dL [facility] LABORATORY Comment: Supplemental ranges: <140 mg/dL before meals <180 mg/dL all other times of the day Specimen Anatomical Collection Method Collection Time Receive d Time (Source) Location / / Volume Laterality Blood specimen 08/15/2017 12:12 8 (specimen) AM EST 12:12 AM EST Yonathan Smith MD POINT OF CARE TEST ORDERABLE S Performing Organization Address City/[facility]/ZIP Code Phon e Number [address] (ABNORMAL) POCT Glucose (08/14/2017 8:07 PM EST) athologist Signature POC Glucose 204 (H) 65 - 199 [place] [facility] mg/dL [facility] LABORATORY Comment: Supplemental ranges: <140 mg/dL before meals <180 mg/dL all other times of the day Specimen Anatomical Collection Method Collection Time Receive d Time (Source) Location / / Volume Laterality Blood specimen 08/14/2017 8:07 PM 018 8:07 (specimen) EST PM EST Yonathan Smith MD POINT OF CARE TEST ORDERABLE S Performing Organization Address City/State/[place] [address] POCT Glucose (08/14/2017 5:11 PM EST) athologist Signature POC Glucose 174 65 - 199 [place] [facility] mg/dL [facility] LABORATORY Comment: Supplemental ranges: <140 mg/dL before meals <180 mg/dL all other times of the day Specimen Anatomical Collection Method Collection Time Receive d Time (Source) Location / / Volume Laterality Blood specimen 08/14/2017 5:11 PM 018 5:11 (specimen) EST PM EST Yonathan Smith MD POINT OF CARE TEST ORDERABLE S Performing Organization Address City/State/[place] [address] POCT Glucose (08/14/2017 12:10 PM EST) athologist Signature POC Glucose 141 65 - 199 [place] [facility] mg/dL [facility] LABORATORY Comment: Supplemental ranges: <140 mg/dL before meals <180 mg/dL all other times of the day Specimen Anatomical Collection Method Collection Time Receive d Time (Source) Location / / Volume Laterality Blood specimen 08/14/2017 12:10 8 (specimen) PM EST 12:10 PM EST Yonathan Smith MD POINT OF CARE TEST ORDERABLE S Performing Organization Address City/State/[place] [address] POCT Glucose (08/14/2017 8:07 AM EST) athologist Signature POC Glucose 158 65 - 199 [place] [facility] mg/dL [facility] LABORATORY Comment: Supplemental ranges: <140 mg/dL before meals <180 mg/dL all other times of the day Specimen Anatomical Collection Method Collection Time Receive d Time (Source) Location / / Volume Laterality Blood specimen 08/14/2017 8:07 AM 018 8:07 (specimen) EST AM EST Yonathan Smith MD POINT OF CARE TEST ORDERABLE S Performing Organization Address City/State/[place] [address] (ABNORMAL) Differential, Automated (08/14/2017 4:52 AM EST) [facility] Method Time Signature Neutrophils % 78.6 % [facility] LABORATORY Neutr Abs (ANC) 7.70 (H) 1.70 - [facility] 6.10 [facility] x10(3)/[facility] L LABORATORY Lymphocytes % 7.8 % [facility] LABORATORY Lymphocytes Abs 0.8 (L) 0.9 - 3.2 [facility] x10(3)/[facility] LABORATORY Monocytes % 8.8 % [facility] LABORATORY Monocyte Abs 0.9 0.3 - 0.9 [facility] x10(3)/[facility] LABORATORY Eosinophils % 4.0 % [facility] LABORATORY Eosinophils Abs 0.4 0.0 - 0.4 [facility] x10(3)/[facility] LABORATORY Basophils % 0.5 % [facility] LABORATORY Basophils Abs 0.0 0.0 - 0.1 [facility] x10(3)/[facility] LABORATORY Immature Gran % 0.30 [...] 0.00 - 0.04 x10(3)/[facility] LABORATORY Specimen Anatomical Collection Method Collection Time Receive d Time (Source) Location / / Volume Laterality Blood specimen 08/14/2017 4:52 AM 018 5:08 (specimen) EST AM EST Resulting Agency Comment Spec In Lab Yonathan Smith MD HEMATOLOGY ORDERABLES Performing Organization Address City/State/[place] [address] (ABNORMAL) Hemogram (08/14/2017 4:52 AM EST) Analysis Performed At Patho logist Time Signature WBC 9.8 (H) 4.0 - 9.5 [facility](3[facility] LABORATORY RBC 3.32 (L) 4.58 - [place] [facility] 5.54 [facility] x10(6)/[facility] LABORATORY Hemoglobin 9.5 (L) 13.7 - [facility] 16.5 gm/dL [facility] LABORATORY Hematocrit 30.3 (L) 40.5 - [facility] 48.5 % [facility] LABORATORY MCV 91.3 82.9 - [facility] 93.1 [facility] LABORATORY MCH 28.6 27.5 - [facility] 32.1 pg [facility] LABORATORY MCHC 31.4 (L) 32.0 - [facility] 35.7 gm/dL [facility] LABORATORY Platelets 263 145 - 357 [facility] x10(3)/[facility] LABORATORY RDWSD 54.8 (H) 36.0 - [facility] 45.0 [facility] LABORATORY RDWCV 16.5 (H) 11.4 - [facility] 13.8 % [facility] LABORATORY MPV 9.1 7.6 - 12.9 [facility] nRBC % Auto 0.0 % [facility] LABORATORY nRBC Abs Auto 0.000 0.000 - [facility] SU 0.000 [facility] x10(3)/[facility] LABORATORY Specimen Anatomical Collection Method Collection Time Receive d Time (Source) Location / / Volume Laterality Blood specimen 08/14/2017 4:52 AM 018 5:08 (specimen) EST AM EST Resulting Agency Comment Spec In Lab Yonathan Smith MD HEMATOLOGY ORDERABLES Performing Organization Address City/State/[place] [address] (ABNORMAL) Prothrombin Time (08/14/2017 4:52 AM EST) P athologist Signature PT 18.8 (H) 11.8 - 14.0 [facility] LABORATORY INR 1.6 (H) 0.9 [...] Organization Address City/State/[place] [address] (ABNORMAL) Basic Metabolic Panel (non-fasting) (08/14/2017 4:52 AM EST) P athologist Signature Glucose Lvl 135 65 - 199 [facility] mg/dL [facility] LABORATORY Comment: Diabetes: >=200 mg/dL plus symp toms BUN 25 (H) 10 - 20 mg/dL [facility] LABORATORY Creatinine 1.36 0.80 - 1.50 mg/dL [facility] LABORATORY Sodium 141 135 - 145 mmol/L [facility] LABORATORY Potassium 4.8 3.5 - 5.0 mmol/L [facility] LABORATORY Calcium 8.5 8.5 - 10.5 mg/dL [facility] LABORATORY Estimated GFR 52 (L) >=60 [facility] LABORATORY Comment: The reported eGFR should be multiplied b y 1.2 for patients. The MDRD is not an appropriate measure o f renal function for patients with body mass extremes or in patients with acute kidney failure. http://Monstrous/DHnkdep http://Monstrous/DHMCnkf Specimen Anatomical Collection Method Collection Time Receive d Time (Source) Location / / Volume Laterality Blood specimen 08/14/2017 4:52 AM 018 5:08 (specimen) EST AM EST Resulting Agency Comment Spec In Lab Yonathan Smith MD CHEMISTRY ORDERABLES Performing Organization Address City/[facility] Phon e Number [address] POCT Glucose (08/14/2017 3:56 AM EST) athologist Signature POC Glucose 135 65 - 199 [facility] mg/dL [facility] LABORATORY Comment: Supplemental ranges: <140 mg/dL before meals <180 mg/dL all other times of the day Specimen Anatomical Collection Method Collection Time Receive d Time (Source) Location / / Volume Laterality Blood specimen 08/14/2017 3:56 AM 018 3:56 (specimen) EST AM EST Yonathan Smith MD POINT OF CARE TEST ORDERABLE S Performing Organization Address City/[facility]/ZIP Code Phon e Number [address] POCT Glucose (08/13/2017 11:13 PM EST) P athologist Signature POC Glucose 118 65 - 199 [facility] mg/dL [facility] LABORATORY Comment: Supplemental ranges: <140 mg/dL before meals <180 mg/dL all other times of the day Specimen Anatomical Collection Method Collection Time Receive d Time (Source) Location / / Volume Laterality Blood specimen 08/13/2017 11:13 8 (specimen) PM EST 11:13 PM EST Yonathan Smith MD POINT OF CARE TEST ORDERABLE S Performing Organization Address City/State/[facility] [place] [address] (ABNORMAL) POCT Glucose (08/13/2017 8:08 PM EST) athologist Signature POC Glucose 204 (H) 65 - 199 [place] mg/dL [facility] LABORATORY Comment: Supplemental ranges: <140 mg/dL before meals <180 mg/dL all other times of the day Specimen Anatomical Collection Method Collection Time Receive d Time (Source) Location / / Volume Laterality Blood specimen 08/13/2017 8:08 PM 018 8:08 (specimen) EST PM EST Yonathan Smith MD POINT OF CARE TEST ORDERABLE S Performing Organization Address City/State/ZIP Code Phon e Number [address] POCT Glucose (08/13/2017 4:02 PM EST) athologist Signature POC Glucose 145 65 - 199 [facility] mg/dL [facility] LABORATORY Comment: Supplemental ranges: <140 mg/dL before meals <180 mg/dL all other times of the day Specimen Anatomical Collection Method Collection Time Receive d Time (Source) Location / / Volume Laterality Blood specimen 08/13/2017 4:02 PM 018 4:02 (specimen) EST PM EST Yonathan Smith MD POINT OF CARE TEST ORDERABLE S Performing Organization Address City/State/[place] [address] POCT Glucose (08/13/2017 11:31 AM EST) athologist Signature POC Glucose 179 65 - 199 [place] [facility] mg/dL [facility] LABORATORY Comment: Supplemental ranges: <140 mg/dL before meals <180 mg/dL all other times of the day Specimen Anatomical Collection Method Collection Time Receive d Time (Source) Location / / Volume Laterality Blood specimen 08/13/2017 11:31 8 (specimen) AM EST 11:31 AM EST Yonathan Smith MD POINT OF CARE TEST ORDERABLE S Performing Organization Address City/State/ZIP Code Phon e Number [address] (ABNORMAL) POCT Glucose (08/13/2017 10:16 AM EST) P athologist Signature POC Glucose 211 (H) 65 - 199 [facility] LABORATORY Comment: Supplemental ranges: <140 mg/dL before meals <180 mg/dL all other times of the day Specimen Anatomical Collection Method Collection Time Receive d Time (Source) Location / / Volume Laterality Blood specimen 08/13/2017 10:16 8 (specimen) AM EST 10:16 AM EST Yonathan Smith MD POINT OF CARE TEST ORDERABLE S Performing Organization Address City/State/[place] [address] JULIAN, legs, multiple levels (08/13/2017 7:42 AM EST) Component Value Ref Test Analysis Performed At Patholo gist Range Method Time Signature VB Text Department: Vascular Surgery Lab VASCUBASE Report Patient: [id number] (GREGORY HOANG) CPT: 19241 ICD10: I99.8 Referring Physician: YONATHAN SMITH ?? Indications: s/p R 1,2,3 toe amps with red left foot, need n ew baseline Diabetes mellitus: yes ICD10 Diagnosis Code: I99.8 Findings: Right ?Pressure (mm Hg) ?? JULIAN ??Waveform ?TBI ?? Brachial Artery ?138 ? Dorsalis Pedis (Ankle) Arter y ?132 ? 0.94 ??Will- Biphasic ? Posterior Tibial (Ankle) Art anila ??154 ? 1.10 ??Will-Biphasic ? Fourth Toe ? 67 ? 0.48 ?? Left ? Pressure (mm Hg) ?? JULIAN ??Waveform ?? TBI ?? Brachial Artery ?140 ? Dorsalis Pedis (Ankle) Arter y ?151 ? 1.08 ??Biphasic ? Posterior Tibial (Ankle) Art naila ??143 ? 1.02 ??Biphasic ? Great Toe [...] Smith MD VASCULAR ORDERABLES Performing Organization Address City/[facility]/ZIP Code Phon e Number VASCUBASE POCT Glucose (08/13/2017 7:33 AM EST) P athologist Signature POC Glucose 156 65 - 199 [facility] mg/dL [facility] LABORATORY Comment: Supplemental ranges: <140 mg/dL before meals <180 mg/dL all other times of the day Specimen Anatomical Collection Method Collection Time Receive d Time (Source) Location / / Volume Laterality Blood specimen 08/13/2017 7:33 AM 018 7:33 (specimen) EST AM EST Yonathan Smith MD POINT OF CARE TEST ORDERABLE S Performing Organization Address City/[facility]/ZIP [facility] [place] [address] (ABNORMAL) Differential, Automated (08/13/2017 5:33 AM EST) Patholo gist Method Time Signature Neutrophils % 77.8 % [facility] LABORATORY Neutr Abs (ANC) 7.83 (H) 1.70 - [facility] 6.10 [facility] x10(3)/[facility] L LABORATORY Lymphocytes % 8.4 % [facility] LABORATORY Lymphocytes Abs 0.8 (L) 0.9 - 3.2 [facility] x10(3)/[facility] LABORATORY Monocytes % 8.3 % [facility] LABORATORY Monocyte Abs 0.8 0.3 - 0.9 [facility] x10(3)/[facility] LABORATORY Eosinophils % 4.6 % [facility] LABORATORY Eosinophils Abs 0.5 (H) 0.0 - 0.4 [facility] x10(3)/[facility] LABORATORY Basophils % 0.5 % [facility] LABORATORY Basophils Abs 0.0 0.0 - 0.1 [facility] x10(3)/[facility] LABORATORY Immature Gran % 0.40 [...] 0.00 - 0.04 x10(3)/[facility] LABORATORY Specimen Anatomical Collection Method Collection Time Receive d Time (Source) Location / / Volume Laterality Blood specimen 08/13/2017 5:33 AM 018 6:04 (specimen) EST AM EST Resulting Agency Comment Spec In Lab Yontahan Smith MD HEMATOLOGY ORDERABLES Performing Organization Address City/State/[place] [address] (ABNORMAL) Hemogram (08/13/2017 5:33 AM EST) Analysis Performed At Patho logist Time Signature WBC 10.1 (H) 4.0 - 9.5 [facility] x10(3)/[facility] LABORATORY RBC 3.21 (L) 4.58 - [facility] 5.54 [facility] x10(6)/[facility] LABORATORY Hemoglobin 9.2 (L) 13.7 - [facility] 16.5 gm/dL [facility] LABORATORY Hematocrit 29.6 (L) 40.5 - [facility] 48.5 % [facility] LABORATORY MCV 92.2 82.9 - [facility] 93.1 fL [facility] LABORATORY MCH 28.7 27.5 - [facility] 32.1 pg [facility] LABORATORY MCHC 31.1 (L) 32.0 - [place] 35.7 gm/dL [facility] LABORATORY Platelets 263 145 - 357 [facility] x10(3)/[facility] LABORATORY RDWSD 54.8 (H) 36.0 - [facility] 45.0 [facility] LABORATORY RDWCV 16.4 (H) 11.4 - [facility] 13.8 % [facility] LABORATORY MPV 9.2 7.6 - 12.9 [facility] LABORATORY nRBC % Auto 0.0 % [facility] LABORATORY nRBC Abs Auto 0.000 0.000 - [facility] 0.000 [facility] x10(3)/[facility] LABORATORY Specimen Anatomical Collection Method Collection Time Receive d Time (Source) Location / / Volume Laterality Blood specimen 08/13/2017 5:33 AM 018 6:04 (specimen) EST AM EST Resulting Agency Comment Spec In Lab Yonathan Smith MD HEMATOLOGY ORDERABLES Performing Organization Address City/State/[facility] [place] [address] (ABNORMAL) Prothrombin Time (08/13/2017 5:33 AM EST) P athologist Signature PT 17.3 (H) 11.8 - 14.0 [facility] LABORATORY INR 1.4 (H) 0.9 [...] Organization Address City/State/[place] [address] (ABNORMAL) Basic Metabolic Panel (non-fasting) (08/13/2017 5:33 AM EST) P athologist Signature Glucose Lvl 126 65 - 199 [facility] mg/dL [facility] LABORATORY Comment: Diabetes: >=200 mg/dL plus symp toms BUN 18 10 - 20 mg/dL [facility] LABORATORY Creatinine 1.16 0.80 - 1.50 mg/dL [facility] LABORATORY Sodium 141 135 - 145 mmol/L [facility] LABORATORY Potassium 4.6 3.5 - 5.0 mmol/L [facility] Calcium 7.9 (L) 8.5 - 10.5 mg/dL [facility] LABORATORY Estimated GFR >60 >=60 [facility] LABORATORY Comment: The reported eGFR should be multiplied b y 1.2 for patients. The MDRD is not an appropriate measure o f renal function for patients with body mass extremes or in patients with acute kidney failure. http://[employer]/DHnkdep http://[employer]/DHMCnkf Specimen Anatomical Collection Method Collection Time Receive d Time (Source) Location / / Volume Laterality Blood specimen 08/13/2017 5:33 AM 018 6:04 (specimen) EST AM EST Resulting Agency Comment Spec In Lab Yonathan Smith MD CHEMISTRY ORDERABLES Performing Organization Address City/[facility]/ZIP Code Phon e Number [place] [id number]OSP[address] LAB[address]ORY Drive POCT Glucose (08/13/2017 4:29 AM EST) athologist Signature POC Glucose 111 65 - 199 [place] [facility] mg/dL [facility] LABORATORY Comment: Supplemental ranges: <140 mg/dL before meals <180 mg/dL all other times of the day Specimen Anatomical Collection Method Collection Time Receive d Time (Source) Location / / Volume Laterality Blood specimen 08/13/2017 4:29 AM 018 4:29 (specimen) EST AM EST Yonathan Smith MD POINT OF CARE TEST ORDERABLE S Performing Organization Address City/State/ZIP Code Phon e Number [address] POCT Glucose (08/12/2017 11:28 PM EST) athologist Signature POC Glucose 164 65 - 199 [facility] LABORATORY Comment: Supplemental ranges: <140 mg/dL before meals <180 mg/dL all other times of the day Specimen Anatomical Collection Method Collection Time Receive d Time (Source) Location / / Volume Laterality Blood specimen 08/12/2017 11:28 8 (specimen) PM EST 11:28 PM EST Yonathan Smith MD POINT OF CARE TEST ORDERABLE S Performing Organization Address City/State/[place] [address] (ABNORMAL) POCT Glucose (08/12/2017 7:40 PM EST) athologist Signature POC Glucose 209 (H) 65 - 199 [facility] SU mg/dL [facility] LABORATORY Comment: Supplemental ranges: <140 mg/dL before meals <180 mg/dL all other times of the day Specimen Anatomical Collection Method Collection Time Receive d Time (Source) Location / / Volume Laterality Blood specimen 08/12/2017 7:40 PM 018 7:40 (specimen) EST PM EST Yonathan Smith MD POINT OF CARE TEST ORDERABLE S Performing Organization Address City/State/[place] [address] POCT Glucose (08/12/2017 4:24 PM EST) athologist Signature POC Glucose 161 65 - 199 [place] [facility] mg/dL [facility] LABORATORY Comment: Supplemental ranges: <140 mg/dL before meals <180 mg/dL all other times of the day Specimen Anatomical Collection Method Collection Time Receive d Time (Source) Location / / Volume Laterality Blood specimen 08/12/2017 4:24 PM 018 4:24 (specimen) EST PM EST Yonathan Smith MD POINT OF CARE TEST ORDERABLE S Performing Organization Address City/State/[place] [address] POCT Glucose (08/12/2017 12:00 PM EST) athologist Signature POC Glucose 167 65 - 199 [facility] mg/dL [facility] LABORATORY Comment: Supplemental ranges: <140 mg/dL before meals <180 mg/dL all other times of the day Specimen Anatomical Collection Method Collection Time Receive d Time (Source) Location / / Volume Laterality Blood specimen 08/12/2017 12:00 8 (specimen) PM EST 12:00 PM EST Yonathan Smith MD POINT OF CARE TEST ORDERABLE S Performing Organization Address City/State/[place] [address] POCT Glucose (08/12/2017 7:25 AM EST) athologist Signature POC Glucose 152 65 - 199 [place] mg/dL [facility] LABORATORY Comment: Supplemental ranges: <140 mg/dL before meals <180 mg/dL all other times of the day Specimen Anatomical Collection Method Collection Time Receive d Time (Source) Location / / Volume Laterality Blood specimen 08/12/2017 7:25 AM 018 7:25 (specimen) EST AM EST Yonathan Smith MD POINT OF CARE TEST ORDERABLE S Performing Organization Address City/State/[place] [address] (ABNORMAL) Differential, Automated (08/12/2017 6:29 AM EST) Patholo gist Method Time Signature Neutrophils % 78.7 % [facility] LABORATORY Neutr Abs (ANC) 7.94 (H) 1.70 - [facility] 6.10 [facility] x10(3)/[facility] LABORATORY Lymphocytes % 8.8 % [facility] LABORATORY Lymphocytes Abs 0.9 0.9 - 3.2 [facility] x10(3)/[facility] LABORATORY Monocytes % 7.8 % [facility] LABORATORY Monocyte Abs 0.8 0.3 - 0.9 [facility] x10(3)/[facility] LABORATORY Eosinophils % 3.9 % [facility] LABORATORY Eosinophils Abs 0.4 0.0 - 0.4 [facility] x10(3)/[facility] LABORATORY Basophils % 0.3 % [facility] LABORATORY Basophils Abs 0.0 0.0 - 0.1 [facility] x10(3)/[facility] LABORATORY Immature Gran % 0.50 [...] Gran Abs 0.05 (H) 0.00 - 0.04 x10(3)/[facility] LABORATORY Specimen Anatomical Collection Method Collection Time Receive d Time (Source) Location / / Volume Laterality Blood specimen 08/12/2017 6:29 AM 018 6:38 (specimen) EST AM EST Resulting Agency Comment Spec In Lab Yonathan Smith MD HEMATOLOGY ORDERABLES Performing Organization Address City/State/[place] [address] (ABNORMAL) Hemogram (08/12/2017 6:29 AM EST) Analysis Performed At [facility] logist Time Signature WBC 10.1 (H) 4.0 - 9.5 [facility] x10(3)/[facility] LABORATORY RBC 3.02 (L) 4.58 - [place] [facility] 5.54 [facility] x10(6)/[facility] LABORATORY Hemoglobin 8.7 (L) 13.7 - [facility] SU 16.5 gm/dL [facility] LABORATORY Hematocrit 28.1 (L) 40.5 - [place] 48.5 % [facility] LABORATORY MCV 93.0 82.9 - [facility] 93.1 [facility] LABORATORY MCH 28.8 27.5 - [place] [facility] 32.1 pg [facility] LABORATORY MCHC 31.0 (L) 32.0 - [facility] 35.7 gm/dL [facility] LABORATORY Platelets 223 145 - 357 [facility] x10(3)/[facility] LABORATORY RDWSD 56.1 (H) 36.0 - [facility] 45.0 [facility] LABORATORY RDWCV 16.4 (H) 11.4 - [facility] 13.8 % [facility] LABORATORY MPV 9.0 7.6 - 12.9 [facility] LABORATORY nRBC % Auto 0.0 % [facility] LABORATORY nRBC Abs Auto 0.000 0.000 - [facility] 0.[facility] x10(3)/[facility] LABORATORY Specimen Anatomical Collection Method Collection Time Receive d Time (Source) Location / / Volume Laterality Blood specimen 08/12/2017 6:29 AM 018 6:38 (specimen) EST AM EST Resulting Agency Comment Spec In Lab Yonathan Smith MD HEMATOLOGY ORDERABLES Performing Organization Address City/State/[place] [address] (ABNORMAL) Prothrombin Time (08/12/2017 6:29 AM EST) P athologist Signature PT 16.1 (H) 11.8 - 14.0 [facility] LABORATORY INR 1.3 (H) 0.9 [...] Organization Address City/State/[place] [address] (ABNORMAL) Basic Metabolic Panel (non-fasting) (08/12/2017 6:29 AM EST) athologist Signature Glucose Lvl 151 65 - 199 [facility] mg/dL [facility] LABORATORY Comment: Diabetes: >=200 mg/dL plus symp toms BUN 18 10 - 20 mg/dL [facility] LABORATORY Creatinine 1.11 0.80 - 1.50 mg/dL [facility] LABORATORY Sodium 138 135 - 145 mmol/L [facility] LABORATORY Potassium 4.6 3.5 - 5.0 mmol/L [facility] [...] Calcium 7.9 (L) 8.5 - 10.5 mg/dL [facility] LABORATORY Estimated GFR >60 >=60 [facility] LABORATORY Comment: The reported eGFR should be multiplied b y 1.2 for patients. The MDRD is not an appropriate measure o f renal function for patients with body mass extremes or in patients with acute kidney failure. http://[employer]/DHnkdep http://[employer]/[facility] – VINITAnkf Specimen Anatomical Collection Method Collection Time Receive d Time (Source) Location / / Volume Laterality Blood specimen 08/12/2017 6:29 AM 018 6:38 (specimen) EST AM EST Resulting Agency Comment Spec In Lab Yonathan Smith MD CHEMISTRY ORDERABLES Performing Organization Address City/[facility]/[place] [address] POCT Glucose (08/12/2017 4:08 AM EST) athologist Signature POC Glucose 181 65 - 199 [facility] SU mg/dL [facility] LABORATORY Comment: Supplemental ranges: <140 mg/dL before meals <180 mg/dL all other times of the day Specimen Anatomical Collection Method Collection Time Receive d Time (Source) Location / / Volume Laterality Blood specimen 08/12/2017 4:08 AM 018 4:08 (specimen) EST AM EST Yontahan Smith MD POINT OF CARE TEST ORDERABLE S Performing Organization Address City/[facility]/[place] [address] (ABNORMAL) POCT Glucose (08/12/2017 12:17 AM EST) athologist Signature POC Glucose 221 (H) 65 - 199 [facility] LABORATORY Comment: Supplemental ranges: <140 mg/dL before meals <180 mg/dL all other times of the day Specimen Anatomical Collection Method Collection Time Receive d Time (Source) Location / / Volume Laterality Blood specimen 08/12/2017 12:17 8 (specimen) AM EST 12:17 AM EST Yonathan Smith MD POINT OF CARE TEST ORDERABLE S Performing Organization Address City/State/ZIP Code Phon e Number [address] (ABNORMAL) POCT Glucose (08/11/2017 8:52 PM EST) athologist Signature POC Glucose 221 (H) 65 - 199 [facility] mg/dL [facility] LABORATORY Comment: Supplemental ranges: <140 mg/dL before meals <180 mg/dL all other times of the day Specimen Anatomical Collection Method Collection Time Receive d Time (Source) Location / / Volume Laterality Blood specimen 08/11/2017 8:52 PM 018 8:52 (specimen) EST PM EST Yonathan Smith MD POINT OF CARE TEST ORDERABLE S Performing Organization Address City/State/[place] [address] POCT Glucose (08/11/2017 5:59 PM EST) athologist Signature POC Glucose 169 65 - 199 [place] mg/dL [facility] LABORATORY Comment: Supplemental ranges: <140 mg/dL before meals <180 mg/dL all other times of the day Specimen Anatomical Collection Method Collection Time Receive d Time (Source) Location / / Volume Laterality Blood specimen 08/11/2017 5:59 PM 018 5:59 (specimen) EST PM EST Yonathan Smith MD POINT OF CARE TEST ORDERABLE S Performing Organization Address City/State/[place] [address] (ABNORMAL) POCT Glucose (08/11/2017 4:08 PM EST) athologist Signature POC Glucose 240 (H) 65 - 199 [facility] mg/dL [facility] LABORATORY Comment: Supplemental ranges: <140 mg/dL before meals <180 mg/dL all other times of the day Specimen Anatomical Collection Method Collection Time Receive d Time (Source) Location / / Volume Laterality Blood specimen 08/11/2017 4:08 PM 018 4:08 (specimen) EST PM EST Yonathan Smith MD POINT OF CARE TEST ORDERABLE S Performing Organization Address City/State/ZIP Code Phon e Number [address] POCT Glucose (08/11/2017 12:04 PM EST) athologist Signature POC Glucose 182 65 - 199 [place] mg/dL [facility] LABORATORY Comment: Supplemental ranges: <140 mg/dL before meals <180 mg/dL all other times of the day Specimen Anatomical Collection Method Collection Time Receive d Time (Source) Location / / Volume Laterality Blood specimen 08/11/2017 12:04 8 (specimen) PM EST 12:04 PM EST Yonathan Smith MD POINT OF CARE TEST ORDERABLE S Performing Organization Address City/State/ZIP Code Phon e Number [address] POCT Glucose (08/11/2017 7:31 AM EST) P athologist Signature POC Glucose 156 65 - 199 [facility] LABORATORY Comment: Supplemental ranges: <140 mg/dL before meals <180 mg/dL all other times of the day Specimen Anatomical Collection Method Collection Time Receive d Time (Source) Location / / Volume Laterality Blood specimen 08/11/2017 7:31 AM 018 7:31 (specimen) EST AM EST Yonathan Smith MD POINT OF CARE TEST ORDERABLE S Performing Organization Address City/State/[place] [address] (ABNORMAL) Differential, Automated (08/11/2017 6:16 AM EST) Patholo gist Method Time Signature Neutrophils % 83.7 % [facility] LABORATORY Neutr Abs (ANC) 10.76 (H) 1.70 - [facility] 6.10 [facility] x10(3)/[facility] L LABORATORY Lymphocytes % 6.0 % [facility] LABORATORY Lymphocytes Abs 0.8 (L) 0.9 - 3.2 [facility] x10(3)/[facility] LABORATORY Monocytes % 7.5 % [facility] LABORATORY Monocyte Abs 1.0 (H) 0.3 - 0.9 [facility] x10(3)/[facility] LABORATORY Eosinophils % 2.0 % [facility] LABORATORY Eosinophils Abs 0.3 0.0 - 0.4 [facility] x10(3)/[facility] LABORATORY Basophils % 0.3 % [facility] LABORATORY Basophils Abs 0.0 0.0 - 0.1 [facility] x10(3)/[facility] LABORATORY Immature Gran % 0.50 [...] Gran Abs 0.06 (H) 0.00 - 0.04 x10(3)/[facility] LABORATORY Specimen Anatomical Collection Method Collection Time Receive d Time (Source) Location / / Volume Laterality Blood specimen 08/11/2017 6:16 AM 018 6:24 (specimen) EST AM EST Resulting Agency Comment Spec In Lab Yonathan Smith MD HEMATOLOGY ORDERABLES Performing Organization Address City/State/[place] [address] (ABNORMAL) Hemogram (08/11/2017 6:16 AM EST) Analysis Performed At Patho logist Time Signature WBC 12.9 (H) 4.0 - 9.5 [facility] x10(3)/[facility] LABORATORY RBC 3.28 (L) 4.58 - [facility] 5.54 [facility] x10(6)/[facility] LABORATORY Hemoglobin 9.5 (L) 13.7 - [facility] 16.5 gm/dL [facility] LABORATORY Hematocrit 29.8 (L) 40.5 - [facility] 48.5 % [facility] LABORATORY MCV 90.9 82.9 - [facility] 93.1 [facility] LABORATORY MCH 29.0 27.5 - [place] [facility] 32.1 pg [facility] LABORATORY MCHC 31.9 (L) 32.0 - [facility] 35.7 gm/dL [facility] LABORATORY Platelets 236 145 - 357 [facility] x10(3)/[facility] LABORATORY RDWSD 53.5 (H) 36.0 - [facility] 45.0 [facility] LABORATORY RDWCV 16.3 (H) 11.4 - [facility] 13.8 % [facility] LABORATORY MPV 8.8 7.6 - 12.9 [facility] LABORATORY nRBC % Auto 0.0 % [facility] LABORATORY nRBC Abs Auto 0.000 0.000 - [facility] 0.000 [facility] x10(3)/[facility] LABORATORY Specimen Anatomical Collection Method Collection Time Receive d Time (Source) Location / / Volume Laterality Blood specimen 08/11/2017 6:16 AM 018 6:24 (specimen) EST AM EST Resulting Agency Comment Spec In Lab Yonathan Smith MD HEMATOLOGY ORDERABLES Performing Organization Address City/State/[place] [address] (ABNORMAL) Prothrombin Time (08/11/2017 6:16 AM EST) athologist Signature PT 15.5 (H) 11.8 - 14.0 [facility] LABORATORY INR 1.3 (H) 0.9 [...] Organization Address City/State/[place] [address] Basic Metabolic Panel (non-fasting) (08/11/2017 6:16 AM EST) P athologist Signature Glucose Lvl 139 65 - 199 [facility] mg/dL [facility] LABORATORY Comment: Diabetes: >=200 mg/dL plus symp toms BUN 12 10 - 20 mg/dL [facility] LABORATORY Creatinine 0.91 0.80 - 1.50 mg/dL [facility] LABORATORY Sodium 138 135 - 145 mmol/L [facility] LABORATORY Potassium 4.6 3.5 - 5.0 mmol/L [facility] LABORATORY Calcium 8.5 8.5 - 10.5 mg/dL [facility] LABORATORY Estimated GFR >60 >=60 [facility] LABORATORY Comment: The reported eGFR should be multiplied b y 1.2 for patients. The MDRD is not an appropriate measure o f renal function for patients with body mass extremes or in patients with acute kidney failure. http://[employer]/DHnkdep http://[employer]/DHMCnkf Specimen Anatomical Collection Method Collection Time Receive d Time (Source) Location / / Volume Laterality Blood specimen 08/11/2017 6:16 AM 018 6:24 (specimen) EST AM EST Resulting Agency Comment Spec In Lab Yonathan Smith MD CHEMISTRY ORDERABLES Performing Organization Address City/State/[place] [address] POCT Glucose (08/11/2017 4:07 AM EST) P athologist Signature POC Glucose 162 65 - 199 [facility] mg/dL [facility] LABORATORY Comment: Supplemental ranges: <140 mg/dL before meals <180 mg/dL all other times of the day Specimen Anatomical Collection Method Collection Time Receive d Time (Source) Location / / Volume Laterality Blood specimen 08/11/2017 4:07 AM 018 4:07 (specimen) EST AM EST Yonathan Smith MD POINT OF CARE TEST ORDERABLE S Performing Organization Address City/[facility]/ZIP [place] [address] POCT Glucose (08/10/2017 11:59 PM EST) athologist Signature POC Glucose 166 65 - 199 [facility] mg/dL [facility] LABORATORY Comment: Supplemental ranges: <140 mg/dL before meals <180 mg/dL all other times of the day Specimen Anatomical Collection Method Collection Time Receive d Time (Source) Location / / Volume Laterality Blood specimen 08/10/2017 11:59 8 (specimen) PM EST 11:59 PM EST Yonathan Smith MD POINT OF CARE TEST ORDERABLE S Performing Organization Address City/[facility]/ZIP Code Phon e Number [place] [address] POCT Glucose (08/10/2017 8:12 PM EST) athologist Signature POC Glucose 156 65 - 199 [facility] mg/dL [facility] LABORATORY Comment: Supplemental ranges: <140 mg/dL before meals <180 mg/dL all other times of the day Specimen Anatomical Collection Method Collection Time Receive d Time (Source) Location / / Volume Laterality Blood specimen 08/10/2017 8:12 PM 018 8:12 (specimen) EST PM EST Yonathan Smith MD POINT OF CARE TEST ORDERABLE S Performing Organization Address City/[facility]/ZIP Code Phon [place] [address] (ABNORMAL) POCT Glucose (08/10/2017 4:42 PM EST) athologist Signature POC Glucose 211 (H) 65 - 199 [facility] mg/dL [facility] LABORATORY Comment: Supplemental ranges: <140 mg/dL before meals <180 mg/dL all other times of the day Specimen Anatomical Collection Method Collection Time Receive d Time (Source) Location / / Volume Laterality Blood specimen 08/10/2017 4:42 PM 018 4:42 (specimen) EST PM EST Yonathan Smith MD POINT OF CARE TEST ORDERABLE S Performing Organization Address City/State/[place] [address] [facility] LABORATORY Drive (ABNORMAL) Differential, Automated (08/10/2017 2:30 PM EST) [facility] Method Time Signature Neutrophils % 87.6 % [facility] Neutr Abs (ANC) 9.90 (H) 1.70 - [facility] 6.10 [facility] x10(3)/[facility] L LABORATORY Lymphocytes % 4.3 % [facility] Lymphocytes Abs 0.5 (L) 0.9 - 3.2 [facility] x10(3)/[facility] LABORATORY Monocytes % 6.0 % [facility] Monocyte Abs 0.7 0.3 - 0.9 [facility] x10(3)/[facility] LABORATORY Eosinophils % 1.1 % [facility] Eosinophils Abs 0.1 0.0 - 0.4 [facility] x10(3)/[facility] LABORATORY Basophils % 0.4 % [facility] Basophils Abs 0.0 0.0 - 0.1 [facility] x10(3)/[facility] LABORATORY Immature Gran % 0.60 [...] Gran Abs 0.07 (H) 0.00 - 0.04 x10(3)/[facility] LABORATORY Specimen Anatomical Collection Method Collection Time Receive d Time (Source) Location / / Volume Laterality Blood specimen 08/10/2017 2:30 PM 018 2:48 (specimen) EST PM EST Resulting Agency Comment Spec In Lab Yonathan Smith MD HEMATOLOGY ORDERABLES Performing Organization Address City/State/[place] [address] (ABNORMAL) Hemogram (08/10/2017 2:30 PM EST) Analysis Performed At Patho logist Time Signature WBC 11.3 (H) 4.0 - 9.5 [facility] x[facility](3[facility] LABORATORY RBC 3.13 (L) 4.58 - [place] Z[facility] 5.54 [facility] x10(6)/[facility] LABORATORY Hemoglobin 8.9 (L) 13.7 - [facility] 16.5 gm/dL [facility] Hematocrit 28.4 (L) 40.5 - [facility] 48.5 % [facility] MCV 90.7 82.9 - [facility] 93.1 [facility] LABORATORY MCH 28.4 27.5 - [facility] 32.1 pg [facility]ORY MCHC 31.3 (L) 32.0 - [facility] 35.7 gm/dL [facility] Platelets 213 145 - 357 [facility] x10(3)/[facility] LABORATORY RDWSD 53.7 (H) 36.0 - [facility] 45.0 [facility] LABORATORY RDWCV 16.4 (H) 11.4 - [facility] 13.8 % [facility] MPV 8.9 7.6 - 12.9 [facility] LABORATORY nRBC % Auto 0.0 % [facility] nRBC Abs Auto 0.000 0.000 - [facility] 0.000 [facility] x10(3)/[facility] LABORATORY Specimen Anatomical Collection Method Collection Time Receive d Time (Source) Location / / Volume Laterality Blood specimen 08/10/2017 2:30 PM 018 2:48 (specimen) EST PM EST Resulting Agency Comment Spec In Lab Yonathan Smith MD HEMATOLOGY ORDERABLES Performing Organization Address City/State/[place] [address] (ABNORMAL) POCT Glucose (08/10/2017 1:50 PM EST) P athologist Signature POC Glucose 243 (H) 65 - 199 [facility] mg/dL [facility] Comment: Supplemental ranges: <140 mg/dL before meals <180 mg/dL all other times of the day Specimen Anatomical Collection Method Collection Time Receive d Time (Source) Location / / Volume Laterality Blood specimen 08/10/2017 1:50 PM 018 1:50 (specimen) EST PM EST Yonathan Smith MD POINT OF CARE TEST ORDERABLE S Performing Organization Address City/State/ZIP Code Phon e Number [address] POCT Glucose (08/10/2017 11:21 AM EST) P athologist Signature POC Glucose 156 65 - 199 [facility] Comment: Supplemental ranges: <140 mg/dL before meals <180 mg/dL all other times of the day Specimen Anatomical Collection Method Collection Time Receive d Time (Source) Location / / Volume Laterality Blood specimen 08/10/2017 11:21 8 (specimen) AM EST 11:21 AM EST Yonathan Smith MD POINT OF CARE TEST ORDERABLE S Performing Organization Address City/State/[place] [address] (ABNORMAL) Differential, Automated (08/10/2017 10:28 AM EST) Patholo gist Method Time Signature Neutrophils % 85.3 % [facility] Neutr Abs (ANC) 9.43 (H) 1.70 - [facility] 6.10 [facility] x10(3)/[facility] L LABORATORY Lymphocytes % 5.5 % [facility] Lymphocytes Abs 0.6 (L) 0.9 - 3.2 [facility] x10(3)/[facility] LABORATORY Monocytes % 5.9 % [facility] Monocyte Abs 0.6 0.3 - 0.9 [facility] x10(3)/[facility] LABORATORY Eosinophils % 2.1 % [facility] Eosinophils Abs 0.2 0.0 - 0.4 [facility] x10(3)/[facility] LABORATORY Basophils % 0.4 % [facility] Basophils Abs 0.0 0.0 - 0.1 [facility] x10(3)/[facility] LABORATORY Immature Gran % 0.80 [...] Gran Abs 0.09 (H) 0.00 - 0.04 x10(3)/[facility] LABORATORY Specimen Anatomical Collection Method Collection Time Receive d Time (Source) Location / / Volume Laterality Blood specimen 08/10/2017 10:28 8 (specimen) AM EST 10:35 AM EST Resulting Agency Comment Spec In Lab Yonathan Smith MD HEMATOLOGY ORDERABLES Performing Organization Address City/State/[place] [address] (ABNORMAL) Hemogram (08/10/2017 10:28 AM EST) Analysis Performed At Patho logist Time Signature WBC 11.0 (H) 4.0 - 9.5 [facility] x10(3)/[facility] LABORATORY RBC 3.02 (L) 4.58 - [facility] 5.54 [facility] x10(6)/[facility] LABORATORY Hemoglobin 8.8 (L) 13.7 - [facility] 16.5 gm/dL [facility]OR[facility]ORY Hematocrit 28.1 (L) 40.5 - [facility] SU 48.5 % [facility] LABORATORY MCV 93.0 82.9 - [facility] 93.1 [facility] LABORATORY MCH 29.1 27.5 - [place] [facility] 32.1 pg [facility] LABORATORY MCHC 31.3 (L) 32.0 - [facility] 35.7 gm/dL [facility]ORATORY Platelets 207 145 - 357 [facility] x10(3)/[facility] LABORATORY RDWSD 55.3 (H) 36.0 - [place] [facility] 45.0 [facility] LABORATORY RDWCV 16.4 (H) 11.4 - [facility] 13.8 % [facility] LABORATORY MPV 9.0 7.6 - 12.9 [facility] LABORATORY nRBC % Auto 0.0 % [facility] nRBC Abs Auto 0.000 0.000 - [facility] 0.000 [facility] x10(3)/[facility] LABORATORY Specimen Anatomical Collection Method Collection Time Receive d Time (Source) Location / / Volume Laterality Blood specimen 08/10/2017 10:28 8 (specimen) AM EST 10:35 AM EST Resulting Agency Comment Spec In Lab Yonathan Smith MD HEMATOLOGY ORDERABLES Performing Organization Address City/State/[place] [address] VS Angiogram/intervention (vascular) (08/10/2017 [...] 2.5x80 5. Completion RLE angiogram 6. L [employer] angiogram 7. 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 - L [employer] angriogram demonstrated: High fe moral bifurcation over the proximal half of the femoral head. L [employer] access in the distal L [employer]. - Closure device: Mynx Technical Procedure: [...] for a 45cm 5F Destination. V18 and [place] a nd QuickCross catheters were used to [...] bifurcation. Access appeared in the distal R [employer]. Closure and sheath removal was performed [...] 2.5x80 5. Completion RLE angiogram 6. L [employer] angiogram 7. 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 - L [employer] angriogram demonstrated: High fe moral bifurcation over the proximal half of the femoral head. L [employer] access in the distal L [employer]. - Closure device: Mynx Technical Procedure: [...] for a 45cm 5F Destination. V18 and [place] a nd QuickCross catheters were used to [...] bifurcation. Access appeared in the distal R [employer]. Closure and sheath removal was performed [...] (ABNORMAL) Differential, Automated (08/10/2017 5:50 AM EST) [facility] Method Time Signature Neutrophils % 80.1 % [facility] Neutr Abs (ANC) 9.01 (H) 1.70 - [facility] 6.10 [facility] x10(3)/[facility] LABORATORY Lymphocytes % 8.8 % [facility] Lymphocytes Abs 1.0 0.9 - 3.2 [facility] x10(3)/[facility] LABORATORY Monocytes % 8.3 % [facility] Monocyte Abs 0.9 0.3 - 0.9 [facility] x10(3)/[facility] LABORATORY Eosinophils % 2.0 % [facility] Eosinophils Abs 0.2 0.0 - 0.4 [facility] x10(3)/[facility] LABORATORY Basophils % 0.4 % [facility] Basophils Abs 0.0 0.0 - 0.1 [facility] x10(3)/[facility] LABORATORY Immature Gran % 0.40 [...] Gran Abs 0.05 (H) 0.00 - 0.04 x10(3)/[facility] LABORATORY Specimen Anatomical Collection Method Collection Time Receive d Time (Source) Location / / Volume Laterality Blood specimen 08/10/2017 5:50 AM 018 5:59 (specimen) EST AM EST Resulting Agency Comment Spec In Lab Yonathan Smith MD HEMATOLOGY ORDERABLES Performing Organization Address City/State/[place] [address] (ABNORMAL) Hemogram (08/10/2017 5:50 AM EST) Analysis Performed At Patho logist Time Signature WBC 11.3 (H) 4.0 - 9.5 [facility] x[facility](3[facility] LABORATORY RBC 3.15 (L) 4.58 - [place] [facility] 5.54 [facility] x10(6)/[facility] LABORATORY Hemoglobin 8.9 (L) 13.7 - [facility] 16.5 gm/dL [facility] LABORATORY Hematocrit 29.0 (L) 40.5 - [facility] 48.5 % [facility]ORATORY MCV 92.1 82.9 - [facility] 93.1 [facility] LABORATORY MCH 28.3 27.5 - [place] [facility] 32.1 pg [facility] LABORATORY MCHC 30.7 (L) 32.0 - [facility] 35.7 gm/dL [facility] LABORATORY Platelets 231 145 - 357 [facility] x10(3)/[facility] LABORATORY RDWSD 53.9 (H) 36.0 - [facility] 45.0 [facility] LABORATORY RDWCV 16.2 (H) 11.4 - [facility] 13.8 % [facility] LABORATORY MPV 8.7 7.6 - 12.9 [facility] nRBC % Auto 0.0 % [facility] nRBC Abs Auto 0.000 0.000 - [facility] 0.000 [facility] x10(3)/[facility] LABORATORY Specimen Anatomical Collection Method Collection Time Receive d Time (Source) Location / / Volume Laterality Blood specimen 08/10/2017 5:50 AM 018 5:59 (specimen) EST AM EST Resulting Agency Comment Spec In Lab Yonathan Smith MD HEMATOLOGY ORDERABLES Performing Organization Address City/State/[place] [address] (ABNORMAL) Basic Metabolic Panel (non-fasting) (08/10/2017 5:50 AM EST) athologist Signature Glucose Lvl 135 65 - 199 [facility] mg/dL [facility] LABORATORY Comment: Diabetes: >=200 mg/dL plus symp toms BUN 17 10 - 20 mg/dL [facility] LABORATORY Creatinine 1.05 0.80 - 1.50 mg/dL [facility] LABORATORY Sodium 144 135 - 145 mmol/L [facility]ORY Potassium 4.6 3.5 - 5.0 mmol/L [facility] Calcium 8.1 (L) 8.5 - 10.5 mg/dL [facility] LABORATORY Estimated GFR >60 >=60 [facility] LAB[facility]ORY Comment: The reported eGFR should be multiplied b y 1.2 for patients. The MDRD is not an appropriate measure o f renal function for patients with body mass extremes or in patients with acute kidney failure. http://[employer]/DHnkdep http://[employer]/DHMCnkf Specimen Anatomical Collection Method Collection Time Receive d Time (Source) Location / / Volume Laterality Blood specimen 08/10/2017 5:50 AM 018 5:59 (specimen) EST AM EST Resulting Agency Comment Spec In Lab Yonathan Smith MD CHEMISTRY ORDERABLES Performing Organization Address City/State/[place] [address] (ABNORMAL) Prothrombin Time (08/10/2017 5:50 AM EST) athologist Signature PT 16.8 (H) 11.8 - 14.0 [facility] LABORATORY INR 1.4 (H) 0.9 [...] Smith MD HEMATOLOGY ORDERABLES Performing Organization Address City/[facility]/[place] [address] (ABNORMAL) POCT Glucose (08/10/2017 4:01 AM EST) athologist Signature POC Glucose 206 (H) 65 - 199 [facility] mg/dL [facility] LABORATORY Comment: Supplemental ranges: <140 mg/dL before meals <180 mg/dL all other times of the day Specimen Anatomical Collection Method Collection Time Receive d Time (Source) Location / / Volume Laterality Blood specimen 08/10/2017 4:01 AM 018 4:01 (specimen) EST AM EST Yonathan Smith MD POINT OF CARE TEST ORDERABLE S Performing Organization Address City/[facility]/[place] [address] POCT Glucose (08/10/2017 2:01 AM EST) P athologist Signature POC Glucose 188 65 - 199 [facility] mg/dL [facility] LABORATORY Comment: Supplemental ranges: <140 mg/dL before meals <180 mg/dL all other times of the day Specimen Anatomical Collection Method Collection Time Receive d Time (Source) Location / / Volume Laterality Blood specimen 08/10/2017 2:01 AM 018 2:01 (specimen) EST AM EST Yonathan Smith MD POINT OF CARE TEST ORDERABLE S Performing Organization Address City/State/[place] [address] (ABNORMAL) POCT Glucose (08/09/2017 11:42 PM EST) athologist Signature POC Glucose 283 (H) 65 - 199 [facility] mg/dL [facility]ORY Comment: Supplemental ranges: <140 mg/dL before meals <180 mg/dL all other times of the day Specimen Anatomical Collection Method Collection Time Receive d Time (Source) Location / / Volume Laterality Blood specimen 08/09/2017 11:42 8 (specimen) PM EST 11:42 PM EST Yonathan Smith MD POINT OF CARE TEST ORDERABLE S Performing Organization Address City/[facility]/[place] [address] POCT Glucose (08/09/2017 8:55 PM EST) athologist Signature POC Glucose 182 65 - 199 [facility] mg/dL [facility] LABOR[facility]ORY Comment: Supplemental ranges: <140 mg/dL before meals <180 mg/dL all other times of the day Specimen Anatomical Collection Method Collection Time Receive d Time (Source) Location / / Volume Laterality Blood specimen 08/09/2017 8:55 PM 018 8:55 (specimen) EST PM EST Yonathan Smith MD POINT OF CARE TEST ORDERABLE S Performing Organization Address City/State/[place] [address] (ABNORMAL) APTT (08/09/2017 6:42 PM EST) athologist Signature PTT 90 (H) 25 - 35 sec [facility] Comment: The recommended therapeutic range for fu ll dose, unfractionated heparin at [facility] is 80 ? 114 seconds. The use [...] Smith MD HEMATOLOGY ORDERABLES Performing Organization Address City/[facility]/ZIP Code Phon e Number [address] POCT Glucose (08/09/2017 4:41 PM EST) athologist Signature POC Glucose 195 65 - 199 [place] mg/dL [facility] LABORATORY Comment: Supplemental ranges: <140 mg/dL before meals <180 mg/dL all other times of the day Specimen Anatomical Collection Method Collection Time Receive d Time (Source) Location / / Volume Laterality Blood specimen 08/09/2017 4:41 PM 018 4:41 (specimen) EST PM EST Yonathan Smith MD POINT OF CARE TEST ORDERABLE S Performing Organization Address City/[facility]/ZIP Code Phon e Number [address] POCT Glucose (08/09/2017 12:29 PM EST) athologist Signature POC Glucose 140 65 - 199 [place] [facility] mg/dL [facility]OR[facility]ORY Comment: Supplemental ranges: <140 mg/dL before meals <180 mg/dL all other times of the day Specimen Anatomical Collection Method Collection Time Receive d Time (Source) Location / / Volume Laterality Blood specimen 08/09/2017 12:29 8 (specimen) PM EST 12:29 PM EST Yonathan Smith MD POINT OF CARE TEST ORDERABLE S Performing Organization Address City/[facility]/[place] [address] POCT Glucose (08/09/2017 9:59 AM EST) athologist Signature POC Glucose 135 65 - 199 [facility] mg/dL [facility] LABORATORY Comment: Supplemental ranges: <140 mg/dL before meals <180 mg/dL all other times of the day Specimen Anatomical Collection Method Collection Time Receive d Time (Source) Location / / Volume Laterality Blood specimen 08/09/2017 9:59 AM 018 9:59 (specimen) EST AM EST Yonathan Smith MD POINT OF CARE TEST ORDERABLE S Performing Organization Address City/[facility]/ZIP Code Phon e Number [address] Specimen to Pathology (08/09/2017 8:41 AM EST) Specimen Anatomical Collection Method Collection Time Receive d Time (Source) Location / / Volume Laterality AP Specimen 08/09/2017 8:41 AM 8 8:41 EST AM EST Narrative [facility]Y - 08/09/2017 8:41 AM EST Specimen requisition ordered. ??Separate Pathology report to follow Yonathan Smith MD PATHOLOGY/CYTOLOGY ORDERABLE S Performing Organization Address [facility]/ZIP Code Phon e Number [address] Surgical Pathology Report (08/09/2017 8:40 AM EST) Component Value Ref Test Analysis Performed At [facility] Range Method Time Signature Surgical [id number] ? Location: [facility]; [facility]; [facility] Report The signing pathologist has (i) examined the relevant preparation(s) for the [facility] specimen(s) and (ii) rendered or confirmed the diagnosis(es) . HOSPITAL LABORATORY . 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 ?Viable proximal resection margins. Electronically signed by: ??Henrique Saravia MD Verified: ??08/13/2017 ?Pathologist Performed at: ??-[facility] Dept. of Pathology, [place], [place] CLINICAL INFORMATION Specimen Submitted: A - [...] Organization Address City/State/[place] [address] Anaerobic Culture (08/09/2017 8:30 AM EST) Vitriflex Method Time Signature Anaerobic No anaerobic [facility] Culture organisms [facility] LABORATORY Specimen Anatomical Collection Method Collection Time [...] Organization Address City/State/[place] [address] (ABNORMAL) Abscess/Wound Aspirate Culture (08/09/2017 8:30 AM EST) Patholo gist Method Time Signature Abscess/Wound Moderate mixed [place] Aspirate bacterial [place] Culture morphotypes [facility] normal LABORATORY cutaneous leroy (A) Gram Stain Rare White Blood Cells [place] Few Gram Positive Cocci in pairs [place] (A) [facility] LABORATORY Organism Gram Positive [place] Cocci in pairs [place] (A) [facility] LABORATORY Specimen Anatomical Collection [...] - GENERAL ORDER ROBSON Performing Organization Address City/[facility]/ZIP Code Phon e Number [address] POCT Glucose (08/09/2017 4:28 AM EST) P athologist Signature POC Glucose 128 65 - 199 [facility] mg/dL [facility] LABORATORY Comment: Supplemental ranges: <140 mg/dL before meals <180 mg/dL all other times of the day Specimen Anatomical Collection Method Collection Time Receive d Time (Source) Location / / Volume Laterality Blood specimen 08/09/2017 4:28 AM 018 4:28 (specimen) EST AM EST Yonathan Smith MD POINT OF CARE TEST ORDERABLE S Performing Organization Address City/[facility]/ZIP Code Phon e Number [address] ABORH Recheck Status (08/09/2017 1:10 AM EST) [facility] gist Method Time Signature ABORH Type Completed [facility] LABORATORY Specimen Anatomical Collection Method Collection Time Receive d Time (Source) Location / / Volume Laterality Blood specimen 08/09/2017 1:10 AM 018 1:35 (specimen) EST AM EST Resulting Agency Comment Spec In Lab Yonathan Smith MD BLOOD BANK ORDERABLES Performing Organization Address City/[facility]/[place] [address] Antibody screen (08/09/2017 1:10 AM EST) Patholo gist Method Time Signature Ab Screen Negative [facility] LABORATORY Expires at 08/12/2017 [place] ZHAOSU [id number] on: [facility] LABORATORY Specimen Anatomical Collection Method Collection Time Receive d Time (Source) Location / / Volume Laterality Blood specimen 08/09/2017 1:10 AM 018 1:35 (specimen) EST AM EST Resulting Agency Comment Spec In Lab Yonathan Smith MD BLOOD BANK ORDERABLES Performing Organization Address City/[facility]/[place] [address] ABO/Rh Typing (08/09/2017 1:10 AM EST) P athologist Signature ABORh Type O Pos [facility] Specimen Anatomical Collection Method Collection Time Receive d Time (Source) Location / / Volume Laterality Blood specimen 08/09/2017 1:10 AM 018 1:35 (specimen) EST AM EST Resulting Agency Comment Spec In Lab Yonathan Smith MD BLOOD BANK ORDERABLES Performing Organization Address City/[facility]/[place] [address] (ABNORMAL) APTT (08/09/2017 1:10 AM EST) P athologist Signature PTT 86 (H) 25 - 35 sec [facility] Comment: The recommended therapeutic range for fu ll dose, unfractionated heparin at [facility] is 80 ? 114 seconds. The use [...] Smith MD HEMATOLOGY ORDERABLES Performing Organization Address City/[facility]/[place] [address] (ABNORMAL) Differential, Automated (08/09/2017 1:10 AM EST) Patholo gist Method Time Signature Neutrophils % 76.2 % [facility] Neutr Abs (ANC) 8.59 (H) 1.70 - [facility] 6.10 [facility] x10(3)/[facility] LABORATORY Lymphocytes % 11.0 % [facility] Lymphocytes Abs 1.2 0.9 - 3.2 [facility] x10(3)/[facility] LABORATORY Monocytes % 8.4 % [facility] Monocyte Abs 1.0 (H) 0.3 - 0.9 [facility] x10(3)/[facility] LABORATORY Eosinophils % 3.5 % [facility] Eosinophils Abs 0.4 0.0 - 0.4 [facility] x10(3)/[facility] LABORATORY Basophils % 0.5 % [facility] Basophils Abs 0.1 0.0 - 0.1 [facility] x10(3)/[facility] LABORATORY Immature Gran % 0.40 [...] Gran Abs 0.05 (H) 0.00 - 0.04 x10(3)/[facility] LABORATORY Specimen Anatomical Collection Method Collection Time Receive d Time (Source) Location / / Volume Laterality Blood specimen 08/09/2017 1:10 AM 018 1:19 (specimen) EST AM EST Resulting Agency Comment Spec In Lab Yonathan Smith MD HEMATOLOGY ORDERABLES Performing Organization Address City/State/[place] [address] (ABNORMAL) Hemogram (08/09/2017 1:10 AM EST) Analysis Performed At Patho logist Time Signature WBC 11.3 (H) 4.0 - 9.5 [facility] x10(3)/[facility] LABORATORY RBC 3.47 (L) 4.58 - [facility] 5.54 [facility] x10(6)/[facility] LABORATORY Hemoglobin 10.0 (L) 13.7 - [facility] 16.[facility] gm/dL [facility] Hematocrit 31.9 (L) 40.5 - [facility] 48.5 % [facility] MCV 91.9 82.9 - [facility]1 [facility] LABORATORY MCH 28.8 27.5 - [facility] 32.1 pg [facility] MCHC 31.3 (L) 32.0 - [facility] 35.[facility] gm/dL [facility] Platelets 234 145 - 357 [facility] x10(3)/[facility] LABORATORY RDWSD 54.0 (H) 36.0 - [facility] 45.0 [facility] RDWCV 16.2 (H) 11.4 - [facility] 13.8 % [facility]ORATORY MPV 8.7 7.6 - 12.9 [facility] LABORATORY nRBC % Auto 0.0 % [facility] nRBC Abs Auto 0.000 0.000 - [facility] 0.000 [facility] x10(3)/[facility] LABORATORY Specimen Anatomical Collection Method Collection Time Receive d Time (Source) Location / / Volume Laterality Blood specimen 08/09/2017 1:10 AM 018 1:19 (specimen) EST AM EST Resulting Agency Comment Spec In Lab Yonathan Smith MD HEMATOLOGY ORDERABLES Performing Organization Address City/State/[place] [address] (ABNORMAL) Prothrombin Time (08/09/2017 1:10 AM EST) athologist Signature PT 16.0 (H) 11.8 - 14.0 [facility] LABORATORY INR 1.3 (H) 0.9 [...] Organization Address City/State/[place] [address] (ABNORMAL) Basic Metabolic Panel (non-fasting) (08/09/2017 1:10 AM EST) athologist Signature Glucose Lvl 108 65 - 199 [facility] mg/dL [facility] Comment: Diabetes: >=200 mg/dL plus symp toms BUN 34 (H) 10 - 20 mg/dL [facility] Creatinine 1.54 (H) 0.80 - 1.50 mg/dL [facility] Sodium 138 135 - 145 mmol/L [facility] Calcium 8.3 (L) 8.5 - 10.5 mg/dL [facility] Estimated GFR 45 (L) >=60 [facility] Comment: The reported eGFR should be multiplied b y 1.2 for patients. The MDRD is not an appropriate measure o f renal function for patients with body mass extremes or in patients with acute kidney failure. http://[employer]/DHnkdep http://[employer]/DHMCnkf Specimen Anatomical Collection Method Collection Time Receive d Time (Source) Location / / Volume Laterality Blood specimen 08/09/2017 1:10 AM 018 1:19 (specimen) EST AM EST Resulting Agency Comment Spec In Lab Yonathan Smith MD CHEMISTRY ORDERABLES Performing Organization Address City/State/ZIP Code Phon e Number [address] POCT Glucose (08/09/2017 12:05 AM EST) athologist Signature POC Glucose 128 65 - 199 [facility] mg/dL [facility] Comment: Supplemental ranges: <140 mg/dL before meals <180 mg/dL all other times of the day Specimen Anatomical Collection Method Collection Time Receive d Time (Source) Location / / Volume Laterality Blood specimen 08/09/2017 12:05 8 (specimen) AM EST 12:05 AM EST Yonathan Smith MD POINT OF CARE TEST ORDERABLE S Performing Organization Address City/[facility]/[place] [address] (ABNORMAL) POCT Glucose (08/08/2017 7:36 PM EST) athologist Signature POC Glucose 215 (H) 65 - 199 [facility] mg/dL [facility] Comment: Supplemental ranges: <140 mg/dL before meals <180 mg/dL all other times of the day Specimen Anatomical Collection Method Collection Time Receive d Time (Source) Location / / Volume Laterality Blood specimen 08/08/2017 7:36 PM 018 7:36 (specimen) EST PM EST Yonathan Smith MD POINT OF CARE TEST ORDERABLE S Performing Organization Address City/[facility]/ZIP Code Phon e Number [address] (ABNORMAL) POCT Glucose (08/08/2017 6:23 PM EST) athologist Signature POC Glucose 216 (H) 65 - 199 [facility] mg/dL [facility] Comment: Supplemental ranges: <140 mg/dL before meals <180 mg/dL all other times of the day Specimen Anatomical Collection Method Collection Time Receive d Time (Source) Location / / Volume Laterality Blood specimen 08/08/2017 6:23 PM 018 6:23 (specimen) EST PM EST Yonathan Smith MD POINT OF CARE TEST ORDERABLE S Performing Organization Address City/[facility]/[place] [address] (ABNORMAL) APTT (08/08/2017 6:00 PM EST) athologist Signature PTT 97 (H) 25 - 35 sec [facility] Comment: The recommended therapeutic range for fu ll dose, unfractionated heparin at [facility] is 80 ? 114 seconds. The use [...] Smith MD HEMATOLOGY ORDERABLES Performing Organization Address City/[facility]/[place] [address] POCT Glucose (08/08/2017 4:42 PM EST) athologist Signature POC Glucose 78 65 - 199 [facility] mg/dL [facility] Comment: Supplemental ranges: <140 mg/dL before meals <180 mg/dL all other times of the day Specimen Anatomical Collection Method Collection Time Receive d Time (Source) Location / / Volume Laterality Blood specimen 08/08/2017 4:42 PM 018 4:42 (specimen) EST PM EST Yonathan Smith MD POINT OF CARE TEST ORDERABLE S Performing Organization Address City/[facility]/[place] [address] (ABNORMAL) POCT Glucose (08/08/2017 4:01 PM EST) athologist Signature POC Glucose 58 (L) 65 - 199 [facility] mg/dL [facility] Comment: Supplemental ranges: <140 mg/dL before meals <180 mg/dL all other times of the day Specimen Anatomical Collection Method Collection Time Receive d Time (Source) Location / / Volume Laterality Blood specimen 08/08/2017 4:01 PM 018 4:01 (specimen) EST PM EST Yonathan Smith MD POINT OF CARE TEST ORDERABLE S Performing Organization Address City/[facility] Phon e Number [address] POCT Glucose (08/08/2017 11:51 AM EST) athologist Signature POC Glucose 90 65 - 199 [facility] mg/dL [facility] Comment: Supplemental ranges: <140 mg/dL before meals <180 mg/dL all other times of the day Specimen Anatomical Collection Method Collection Time Receive d Time (Source) Location / / Volume Laterality Blood specimen 08/08/2017 11:51 8 (specimen) AM EST 11:51 AM EST Yonathan Smith MD POINT OF CARE TEST ORDERABLE S Performing Organization Address [facility] [place] [address] (ABNORMAL) APTT (08/08/2017 10:27 AM EST) athologist Signature PTT 64 (H) 25 - 35 sec [facility] Comment: The recommended therapeutic range for fu ll dose, unfractionated heparin at [facility] is 80 ? 114 seconds. The use [...] Organization Address City/State/[place] [address] POCT Glucose (08/08/2017 8:02 AM EST) athologist Signature POC Glucose 178 65 - 199 [facility] mg/dL [facility] Comment: Supplemental ranges: <140 mg/dL before meals <180 mg/dL all other times of the day Specimen Anatomical Collection Method Collection Time Receive d Time (Source) Location / / Volume Laterality Blood specimen 08/08/2017 8:02 AM 018 8:02 (specimen) EST AM EST Yonathan Smith MD POINT OF CARE TEST ORDERABLE S Performing Organization Address City/[facility]/ZIP Code Phon e Number [address] (ABNORMAL) APTT (08/08/2017 4:51 AM EST) athologist Signature PTT >160 25 - 35 [facility] (Critical) [facility] LABORATORY Comment: Called by: HOWARD, Read back by: Melba Jaramillo, Date/Time:08/08/17 05:43. The recommended therapeutic range for fu ll dose, unfractionated heparin at [facility] is 80 ? 114 seconds. The use [...] Smith MD HEMATOLOGY ORDERABLES Performing Organization Address City/[facility]/ZIP Code Phon e Number [address] (ABNORMAL) Differential, Automated (08/08/2017 4:51 AM EST) Patholo gist Method Time Signature Neutrophils % 77.9 % [facility] Neutr Abs (ANC) 8.17 (H) 1.70 - [facility] 6.10 [facility] x10(3)/[facility] LABORATORY Lymphocytes % 10.3 % [facility] Lymphocytes Abs 1.1 0.9 - 3.2 [facility] x10(3)/[facility] LABORATORY Monocytes % 7.0 % [facility] Monocyte Abs 0.7 0.3 - 0.9 [facility] x10(3)/[facility] LABORATORY Eosinophils % 3.6 % [facility] Eosinophils Abs 0.4 0.0 - 0.4 [facility] x10(3)/[facility] LABORATORY Basophils % 0.5 % [facility] Basophils Abs 0.0 0.0 - 0.1 [facility] x10(3)/[facility] LABORATORY Immature Gran % 0.70 [...] Gran Abs 0.07 (H) 0.00 - 0.04 x10(3)/[facility] LABORATORY Specimen Anatomical Collection Method Collection Time Receive d Time (Source) Location / / Volume Laterality Blood specimen 08/08/2017 4:51 AM 018 5:14 (specimen) EST AM EST Resulting Agency Comment Spec In Lab Yonathan Smith MD HEMATOLOGY ORDERABLES Performing Organization Address City/State/[place] [address] (ABNORMAL) Hemogram (08/08/2017 4:51 AM EST) Analysis Performed At Patho logist Time Signature WBC 10.5 (H) 4.0 - 9.5 [facility] x10(3)/[facility] LABORATORY RBC 3.27 (L) 4.58 - [facility] 5.54 [facility] x10(6)/[facility] LABORATORY Hemoglobin 9.3 (L) 13.7 - [facility] 16.5 gm/dL [facility]ORY Hematocrit 30.3 (L) 40.5 - [facility] 48.5 % [facility]ATORY MCV 92.7 82.9 - [facility] 93.1 [facility] LABORATORY MCH 28.4 27.5 - [facility] 32.1 pg [facility] LABORATORY MCHC 30.7 (L) 32.0 - [facility] 35.7 gm/dL [facility]ORATORY Platelets 252 145 - 357 [facility] x10(3)/[facility] LABORATORY RDWSD 54.6 (H) 36.0 - [facility] 45.0 [facility] LABORATORY RDWCV 16.2 (H) 11.4 - [facility] 13.8 % [facility] LABORATORY MPV 9.1 7.6 - 12.9 [facility] LABORATORY nRBC % Auto 0.0 % [facility] nRBC Abs Auto 0.000 0.000 - [facility] 0.000 [facility] x10(3)/[facility] LABORATORY Specimen Anatomical Collection Method Collection Time Receive d Time (Source) Location / / Volume Laterality Blood specimen 08/08/2017 4:51 AM 018 5:14 (specimen) EST AM EST Resulting Agency Comment Spec In Lab Yonathan Smith MD HEMATOLOGY ORDERABLES Performing Organization Address City/State/[place] [address] (ABNORMAL) Prothrombin Time (08/08/2017 4:51 AM EST) P athologist Signature PT 18.1 (H) 11.8 - 14.0 [facility] LABORATORY INR 1.5 (H) 0.9 [...] Organization Address City/State/[place] [address] (ABNORMAL) Basic Metabolic Panel (non-fasting) (08/08/2017 4:51 AM EST) P athologist Signature Glucose Lvl 229 (H) 65 - 199 [facility] mg/dL [facility] LABORATORY Comment: Diabetes: >=200 mg/dL plus symp toms BUN 35 (H) 10 - 20 mg/dL [facility] LABORATORY Creatinine 1.57 (H) 0.80 - 1.50 mg/dL [facility] LABORATORY Sodium 136 135 - 145 mmol/L [facility] [...] Calcium 7.9 (L) 8.5 - 10.5 mg/dL [facility] LABORATORY Estimated GFR 44 (L) >=60 [facility] Comment: The reported eGFR should be multiplied b y 1.2 for patients. The MDRD is not an appropriate measure o f renal function for patients with body mass extremes or in patients with acute kidney failure. http://[employer]/DHnkdep http://[employer]/DHMCnkf Specimen Anatomical Collection Method Collection Time Receive d Time (Source) Location / / Volume Laterality Blood specimen 08/08/2017 4:51 AM 018 5:14 (specimen) EST AM EST Resulting Agency Comment Spec In Lab Yonathan Smith MD CHEMISTRY ORDERABLES Performing Organization Address City/[facility]/ZIP Code Phon e Number [address] POCT Glucose (08/08/2017 4:20 AM EST) athologist Signature POC Glucose 193 65 - 199 [facility] mg/dL [facility] LABORATORY Comment: Supplemental ranges: <140 mg/dL before meals <180 mg/dL all other times of the day Specimen Anatomical Collection Method Collection Time Receive d Time (Source) Location / / Volume Laterality Blood specimen 08/08/2017 4:20 AM 018 4:20 (specimen) EST AM EST Yonathan Smith MD POINT OF CARE TEST ORDERABLE S Performing Organization Address City/[facility]/[place] [address] POCT Glucose (08/07/2017 11:11 PM EST) athologist Signature POC Glucose 124 65 - 199 [facility]dL [facility] LABORATORY Comment: Supplemental ranges: <140 mg/dL before meals <180 mg/dL all other times of the day Specimen Anatomical Collection Method Collection Time Receive d Time (Source) Location / / Volume Laterality Blood specimen 08/07/2017 11:11 8 (specimen) PM EST 11:11 PM EST Yonathan Smith MD POINT OF CARE TEST ORDERABLE S Performing Organization Address City/[facility]/[place] [address] (ABNORMAL) APTT (08/07/2017 10:18 PM EST) athologist Signature PTT 114 (H) 25 - 35 sec [facility] Comment: The recommended therapeutic range for fu ll dose, unfractionated heparin at [facility] is 80 ? 114 seconds. The use [...] Address City/State/ZIP Code Phon e Number [address] POCT Glucose (08/07/2017 8:10 PM EST) athologist Signature POC Glucose 140 65 - 199 [facility] mg/dL [facility]ORY Comment: Supplemental ranges: <140 mg/dL before meals <180 mg/dL all other times of the day Specimen Anatomical Collection Method Collection Time Receive d Time (Source) Location / / Volume Laterality Blood specimen 08/07/2017 8:10 PM 018 8:10 (specimen) EST PM EST Yonathan Smith MD POINT OF CARE TEST ORDERABLE S Performing Organization Address City/[facility]/ZIP Code Phon e Number [address] POCT Glucose (08/07/2017 5:27 PM EST) athologist Signature POC Glucose 187 65 - 199 [facility] mg/dL [facility]ORY Comment: Supplemental ranges: <140 mg/dL before meals <180 mg/dL all other times of the day Specimen Anatomical Collection Method Collection Time Receive d Time (Source) Location / / Volume Laterality Blood specimen 08/07/2017 5:27 PM 018 5:27 (specimen) EST PM EST Yonathan Smith MD POINT OF CARE TEST ORDERABLE S Performing Organization Address City/State/ZIP Code Phon e Number [address] POCT Glucose (08/07/2017 3:29 PM EST) athologist Signature POC Glucose 86 65 - 199 [facility] mg/dL [facility]ORY Comment: Supplemental ranges: <140 mg/dL before meals <180 mg/dL all other times of the day Specimen Anatomical Collection Method Collection Time Receive d Time (Source) Location / / Volume Laterality Blood specimen 08/07/2017 3:29 PM 018 3:29 (specimen) EST PM EST oYnathan Smith MD POINT OF CARE TEST ORDERABLE S Performing Organization Address City/[facility]/[place] [address] (ABNORMAL) APTT (08/07/2017 2:50 PM EST) athologist Signature PTT 60 (H) 25 - 35 sec [facility] Comment: The recommended therapeutic range for fu ll dose, unfractionated heparin at [facility] is 80 ? 114 seconds. The use [...] Smith MD HEMATOLOGY ORDERABLES Performing Organization Address City/[facility]/[place] [address] (ABNORMAL) POCT Glucose (08/07/2017 2:23 PM EST) athologist Signature POC Glucose 55 (L) 65 - 199 [facility] mg/dL [facility]ORY Comment: Supplemental ranges: <140 mg/dL before meals <180 mg/dL all other times of the day Specimen Anatomical Collection Method Collection Time Receive d Time (Source) Location / / Volume Laterality Blood specimen 08/07/2017 2:23 PM 018 2:23 (specimen) EST PM EST Yonathan Smith MD POINT OF CARE TEST ORDERABLE S Performing Organization Address City/[facility]/[place] [address] POCT Glucose (08/07/2017 12:08 PM EST) athologist Signature POC Glucose 77 65 - 199 [facility] mg/dL [facility]ORY Comment: Supplemental ranges: <140 mg/dL before meals <180 mg/dL all other times of the day Specimen Anatomical Collection Method Collection Time Receive d Time (Source) Location / / Volume Laterality Blood specimen 08/07/2017 12:08 8 (specimen) PM EST 12:08 PM EST Yonathan Smith MD POINT OF CARE TEST ORDERABLE S Performing Organization Address City/State/[place] [address] (ABNORMAL) Differential, Automated (08/07/2017 7:30 AM EST) [facility] gist Method Time Signature Neutrophils % 73.8 % [facility] Neutr Abs (ANC) 7.17 (H) 1.70 - [facility] 6.10 [facility] x10(3)/[facility] LABORATORY Lymphocytes % 12.2 % [facility] Lymphocytes Abs 1.2 0.9 - 3.2 [facility] x10(3)/[facility] LABORATORY Monocytes % 9.0 % [facility] Monocyte Abs 0.9 0.3 - 0.9 [facility] x10(3)/[facility] LABORATORY Eosinophils % 3.9 % [facility] Eosinophils Abs 0.4 0.0 - 0.4 [facility] x10(3)/[facility] LABORATORY Basophils % 0.6 % [facility] Basophils Abs 0.1 0.0 - 0.1 [facility] x10(3)/[facility] LABORATORY Immature Gran % 0.50 [...] Gran Abs 0.05 (H) 0.00 - 0.04 x10(3)/[facility] LABORATORY Specimen Anatomical Collection Method Collection Time Receive d Time (Source) Location / / Volume Laterality Blood specimen 08/07/2017 7:30 AM 018 7:45 (specimen) EST AM EST Resulting Agency Comment Spec In Lab Yonathan Smith MD HEMATOLOGY ORDERABLES Performing Organization Address City/State/[place] [address] (ABNORMAL) Hemogram (08/07/2017 7:30 AM EST) Analysis Performed At Patho logist Time Signature WBC 9.7 (H) 4.0 - 9.5 [facility] LABORATORY RBC 3.54 (L) 4.58 - [facility] 5.54 [facility] x10(6)/[facility] LABORATORY Hemoglobin 9.9 (L) 13.7 - [facility] 16.5 gm/dL [facility] LABORATORY Hematocrit 32.3 (L) 40.5 - [facility] 48.5 % [facility] LABORATORY MCV 91.2 82.9 - [facility] 93.1 [facility] LABORATORY MCH 28.0 27.5 - [facility] 32.1 pg [facility] LABORATORY MCHC 30.7 (L) 32.0 - [facility] 35.7 gm/dL [facility] LABORATORY Platelets 312 145 - 357 [facility] x10(3)/[facility] LABORATORY RDWSD 53.2 (H) 36.0 - [facility] 45.0 [facility] LABORATORY RDWCV 16.0 (H) 11.4 - [facility] 13.8 % [facility] LABORATORY MPV 8.9 7.6 - 12.9 [facility] [place] [facility] nRBC % Auto 0.0 % [facility] nRBC Abs Auto 0.000 0.000 - [facility] 0.000 [facility] x10(3)/[facility] LABORATORY Specimen Anatomical Collection Method Collection Time Receive d Time (Source) Location / / Volume Laterality Blood specimen 08/07/2017 7:30 AM 018 7:45 (specimen) EST AM EST Resulting Agency Comment Spec In Lab Yonathan Smith MD HEMATOLOGY ORDERABLES Performing Organization Address City/State/ZIP [place] [address] (ABNORMAL) Basic Metabolic Panel (non-fasting) (08/07/2017 7:30 AM EST) P athologist Signature Glucose Lvl 80 65 - 199 [facility] mg/dL [facility] LABORATORY Comment: Diabetes: >=200 [...] LABORATORY Calcium 8.5 8.5 - 10.5 mg/dL [facility] LABORATORY Estimated GFR 59 (L) >=60 [facility] LABORATORY Comment: The reported eGFR should be multiplied b y 1.2 for patients. The MDRD is not an appropriate measure o f renal function for patients with body mass extremes or in patients with acute kidney failure. http://[employer]/DHnkdep http://[employer]/DHMCnkf Specimen Anatomical Collection Method Collection Time Receive d Time (Source) Location / / Volume Laterality Blood specimen 08/07/2017 7:30 AM 018 7:45 (specimen) EST AM EST Resulting Agency Comment Spec In Lab Yonathan Smith MD CHEMISTRY ORDERABLES Performing Organization Address City/State/ZIP Code Phon e Number [address] POCT Glucose (08/07/2017 7:27 AM EST) athologist Signature POC Glucose 81 65 - 199 [facility] mg/dL [facility] LABORATORY Comment: Supplemental ranges: <140 mg/dL before meals <180 mg/dL all other times of the day Specimen Anatomical Collection Method Collection Time Receive d Time (Source) Location / / Volume Laterality Blood specimen 08/07/2017 7:27 AM 018 7:27 (specimen) EST AM EST Yonathan Smith MD POINT OF CARE TEST ORDERABLE S Performing Organization Address City/[facility]/[place] [address] APTT (08/07/2017 7:04 AM EST) athologist Signature PTT 34 25 - 35 sec [facility] Comment: The recommended therapeutic range for fu ll dose, unfractionated heparin at [facility] is 80 ? 114 seconds. The use [...] Smith MD HEMATOLOGY ORDERABLES Performing Organization Address City/[facility]/[place] [address] (ABNORMAL) Prothrombin Time (08/07/2017 7:04 AM EST) athologist Signature PT 17.3 (H) 11.8 - 14.0 [facility] LABORATORY INR 1.4 (H) 0.9 [...] Smith MD HEMATOLOGY ORDERABLES Performing Organization Address City/[facility]/ZIP Code Phon e Number [address] POCT Glucose (08/07/2017 4:03 AM EST) athologist Signature POC Glucose 93 65 - 199 [facility] mg/dL [facility] Comment: Supplemental ranges: <140 mg/dL before meals <180 mg/dL all other times of the day Specimen Anatomical Collection Method Collection Time Receive d Time (Source) Location / / Volume Laterality Blood specimen 08/07/2017 4:03 AM 018 4:03 (specimen) EST AM EST Yonathan Smith MD POINT OF CARE TEST ORDERABLE S Performing Organization Address City/[facility]/ZIP Code Phon e Number [address] POCT Glucose (08/07/2017 12:04 AM EST) athologist Signature POC Glucose 107 65 - 199 [facility] mg/dL [facility] Comment: Supplemental ranges: <140 mg/dL before meals <180 mg/dL all other times of the day Specimen Anatomical Collection Method Collection Time Receive d Time (Source) Location / / Volume Laterality Blood specimen 08/07/2017 12:04 8 (specimen) AM EST 12:04 AM EST Yonathan Smith MD POINT OF CARE TEST ORDERABLE S Performing Organization Address City/[facility]/ZIP Code Phon e Number [address] POCT Glucose (08/06/2017 7:56 PM EST) athologist Signature POC Glucose 178 65 - 199 [facility] mg/dL [facility] Comment: Supplemental ranges: <140 mg/dL before meals <180 mg/dL all other times of the day Specimen Anatomical Collection Method Collection Time Receive d Time (Source) Location / / Volume Laterality Blood specimen 08/06/2017 7:56 PM 018 7:56 (specimen) EST PM EST Yonathan Smith MD POINT OF CARE TEST ORDERABLE S Performing Organization Address City/State/ZIP Code [place] [address] TcPO2 (08/06/2017 2:32 PM EST) Component Value Ref Test Analysis Performed At [facility] Range Method Time Signature VB Text Department: Vascular Surgery Lab VASCUBASE Report Patient: [id number] (GREGORY HOANG) CPT: 4124267 ICD10: I99.8 Referring Physician: YONATHAN SMITH ?? [...] Provider: Chiquis Mcgrath RN)1730 (Given - Provider: Chqiuis Mcgrath RN) 0746 (Given - Provider: Chiquis [...]
Routine documented in this encounter Care Teams Budder Relationship Specialty Start Date End Date Lovely Vicente MD PCP - General 04/16/[address] [place] [address] documented as of this encounter
--- OUTSIDE RECORDS SUMMARY | 2022-02-20 08:12 | XMS_ITS | Encounter Summary ---
:1945 [place] [address] Care Team Providers Name Role Phone Lovely Vicente MD Primary Care Provider Encounter Details Date Type Department Care Team Description 08/09/2017 Clinical Support Same Day at [facility] Canceled (D-SCHED ERROR [facility] / CORRECT ION ) [place] [address] Social History Tobacco Use Types Packs/Day [...] MD [facility] ER CARDIOLOGY [place], [place] [address] (Wo rk) documented as of this encounter Procedures Procedure Name Priority Date/Time Associated Diagnosis Comme nts GLAZIER APPRENTICE 08/09/2017 12:00 AM Resul ts for this SCAN EST procedure are i n the results section. documented in this encounter Results SCAN DOC: GLAZIER APPRENTICE (08/09/2017 12:00 AM EST) Narrative 08/09/2017 12:00 AM EST This result has an attachment that is no t available. Ordered by an unspecified provider. Scanning Provider MEDIA MGR SCAN EXT ORDR/RSLT documented in this encounter Visit Diagnoses Not on filedocumented in this encounter Care Teams Rn Orthopaedics Relationship Specialty Start Date End Date Lovely Vicente MD PCP - General 04/16/[address] [place] [address] documented as of this encounter
--- OUTSIDE RECORDS SUMMARY | 2022-02-20 08:13 | XMS_ITS | Encounter Summary ---
:1945 Author Organization [facility] [place] [address] Care Team Providers Name Role Phone Lovely Vicente MD Primary Care Provider Reason for Visit Auth/Cert Specialty Diagnoses / Procedures Referred By Contact Refer red To Contact Diagnoses Critical lower limb ischemia CELLULITIS RT FOOT Procedures EMERGENCY Referral ID Status Reason Start Date Expiration Date Visits Requ ested Visits Authorized [id number] 1 1 Encounter Details Date Type Department Care Team Description 08/06/2017 Hospital [facility] [address] Social History Tobacco Use Types Packs/Day [...] 3 times Insulin Pen daily (with meals). fluocinolone acetonide Twice daily to less 60 mL 2 09/2308/16/2017 (SYNALAR) 0.01 % severe areas of external psoriasis solutionIndications: Psoriasis documented as of this encounter Plan of Treatment Upcoming Encounters Date Type Specialty Care Team Description 03/26/2022 Office Visit Cardiology Vitaliy Nobles MD [facility] CARDIOLOGY [place], [place] [address] (Wo rk) documented as of this encounter Visit Diagnoses Not on filedocumented in this encounter Care Teams Java Software Developer Relationship Specialty Start Date End Date Lovely Vicente MD PCP - General 04/16/[address] [place] [address] documented as of this encounter
--- OUTSIDE RECORDS SUMMARY | 2022-02-20 08:13 | XMS_ITS | Encounter Summary ---
:1945 [place] [address] Care Team Providers Name Role Phone Lovely Vicente MD Primary Care Provider Encounter Details Date Type Department Care Team Description 08/04/2017 Notes Only Cardiac Surgery Makayla Wilson CUSTOMER QUALITY ENGINEER [facility] [place] [address] CARDIAC SURGERY [phone] [place], [place] [address] (Wo rk) Social History Tobacco [...] [facility] ER CARDIOLOGY [place], [place] [address] (Wo rk) documented as of this encounter Visit Diagnoses Not on filedocumented in this encounter Care Teams Health Safety Engineer Relationship Specialty Start Date End Date Lovely Vicente MD PCP - General 04/16/[address] [place] [address] documented as of this encounter
--- OUTSIDE RECORDS SUMMARY | 2022-02-20 08:13 | XMS_ITS | Encounter Summary ---
:1945 [place] [address] Care Team Providers Name Role Phone Lovely Vicente MD Primary Care Provider Reason for Visit Auth/Cert Specialty Diagnoses / Procedures Referred By Contact Refer red To Contact Diagnoses Critical lower limb ischemia CELLULITIS RT FOOT Procedures EMERGENCY Referral ID Status Reason Start Date Expiration Date Visits Requ ested Visits Authorized [id number] 1 1 Encounter Details Date Type Department Care Team Description 08/09/2017 Anesthesia Event Main Operating Room Daniele Lizama MD [facility] [place] [address] [facility] Rob Jones MD [facility] [place] [address] [place] [address] Anesthesia Record Procedure Summary Procedure Name [...] Knowles, Dory arm), right; VAMSI Rios, RN kuxa-xxt-ykrujf catheter system; 20 gauge; 08/16/17; 1047 PIV 07/29/17; 1413; median 07/29/17 1413 by 08/16/17 1047 by cubital vein (antecubital Magdalene Hickey Williams, Dory fossa), left; VAMSI Wyatt, RN vnby-nyt-zorunv catheter system; 20 gauge; 08/16/17; 1047 PIV 08/06/17; 1742; cephalic 08/06/17 1742 by 0920 by vein (lateral side of Taylor Laureano Danah y, Caitlyn C, arm), right; VAMSI BONNER beej-zlv-itobqi catheter system; 22 gauge, 1 in length; Eliseo LAUREANO RN VAS; distraction, intradermal injection, tolerated well, appears comfortable; 0; 08/16/17; 0920 Wound 08/07/17; 1335; knee; 08/07/17 1335 by 08/16/17 1047 by laceration; wound occured Barbara Albert iams, Dory WAXER TENDER; 08/16/17; 1047 VAMSI Alonzo, RN PIV 08/07/17; 1734; cephalic 08/07/17 1734 by 1047 by vein (lateral side of Kendrick, Carlos W, Willia ms, Dory arm), left; MARCIE Wyatt RN szpd-caw-svgtqe catheter system; 22 gauge; distraction, intradermal injection, [...] Santillan MD - 08/09/2017 9:01 AM EST [facility] Department of Anesthesiology Post-procedure Note Patient: Don Fatima Procedure Summary Date Anesthesia Start Anesthesia Stop Room / Location 08/09/17 0802 0901 [facility] OR 14 / [facility] MAIN OR Procedure Diagnosis Surgeon Responsible Provider AMPUTATION, 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 Nerve [...] SETUP performed by Manny Mcknight MD at [facility] MAIN OR ??? PRO CABG, ARTERIAL, SINGLE N/A 07/07/2017 @CABG, USING ARTERIAL GRAFT;SINGLE ARTERIAL GRAFT (WRVU 33.75) performed by Yuan Retana MD at [facility] MAIN OR ??? PRO CABG, ARTERY-VEIN, TWO N/A 07/07/2017 @CABG, TWO VENOUS GRAFTS & ARTERIAL GRAFT (WRVU 7.93) performed by Yuan Retana MD at [facility] MAIN OR ??? PRO COLONOSCOPY, REMV LESN, SNARE 01/16/2014 COLONOSCOPY, POLYPECTOMY, REMOVAL LESION BY SNARE performed by Nohemi Jaimes MD at [facility] ENDOSCOPY ??? PRO ENDOSCOPY W/VIDEO-ASST VEIN HARVEST, CABG Right 07/07/2017 ENDOSCOPIC HARVEST VEIN(S) FOR CABG (WRVU 0.31) performed by Yuan Retana MD at [facility] MAIN OR ??? PRO THYROIDECTOMY 03/28/2013 THYROIDECTOMY, TOTAL OR COMPLETE performed by Manny Mcknight MD at [facility] MAIN OR Social History Substance Use [...] adequate IV access. Brody Santillan MD PGY-2, Sas Sql Developer Pager #[phone] Anesthesiology Staff (Dewhirst): Pre-op summary note as [...] Visit Cardiology Vitaliy Nobles MD [facility] ER CARDIOLOGY [place] [address] (Wo rk) documented as of this [...] Length: 10 cm Gauge: 21 Needle Type: L-xlyxi-nbafe Medication injection made in crementally with aspirations. [...] Procedure) documented in this encounter Care Teams Bingo Usher Relationship Specialty Start Date End Date Lovely Vicente MD PCP - General 04/16/[address] [place] [address] documented as of this encounter
--- OUTSIDE RECORDS SUMMARY | 2022-02-20 08:13 | XMS_ITS | Encounter Summary ---
:1945 Author Organization [facility] [place] [address] Care Team Providers Name Role Phone Lovely Vicente MD Primary Care Provider Encounter Details Date Type Department Care Team Description 08/04/2017 Orders Only Cardiac Surgery Makayla Wilson APRN [facility] [place] [address] CARDIAC SURGERY [phone] [place], [place] [address] (Wo rk) Social History Tobacco [...] Vitaliy Nobles MD [facility] ER DR [place], [place] [address] (Wo rk) documented as of this encounter Visit Diagnoses Not on filedocumented in this encounter Care Teams Electrical Tech Relationship Specialty Start Date End Date Lovely Vicente MD PCP - General 04/16/[address] [place] [address] documented as of this encounter
--- OUTSIDE RECORDS SUMMARY | 2022-02-20 08:13 | XMS_ITS | Encounter Summary ---
:1945 Author Organization [facility] [place] [address] Care Team Providers Name Role Phone Lovely Vicente MD Primary Care Provider Reason for Visit Auth/Cert Specialty Diagnoses / Procedures Referred By Contact Refer red To Contact Diagnoses Critical lower limb ischemia CELLULITIS RT FOOT Procedures EMERGENCY Referral ID Status Reason Start Date Expiration Date Visits Requ ested Visits Authorized [id number] 1 1 Encounter Details Date Type Department Care Team Description 08/06/2017 Clinical Support Same Day at [facility] Ischemia of foot [facility] [place] [address] Social History Tobacco Use Types Packs/Day [...] noother symptoms except severe right foot pain. [facility] clinic called as pt on [...] MD [facility] ER DR CARDIOLOGY [place], [place] [address] (Wo rk) documented [...] 444 ms MUSE SYSTEM (Bezet) Calculated P [place] 44 degrees MUSE SYSTEM Calculated R [place] -31 degrees MUSE SYSTEM Calculated T [place] 106 degrees MUSE SYSTEM INTERPRETATION Normal sinus [...] disorder documented in this encounter Care Teams Keyboard Instrument Repairer Relationship Specialty Start Date End Date Lovely Vicente MD PCP - General 04/16/[address] [place] [address] documented as of this encounter
--- OUTSIDE RECORDS SUMMARY | 2022-02-20 08:13 | XMS_ITS | Encounter Summary ---
:1945 Author Organization [facility] [place] [address] Care Team Providers Name Role Phone Lovely Vicente MD Primary Care Provider Reason for Visit Auth/Cert Specialty Diagnoses / Procedures Referred By Contact Refer red To Contact Diagnoses Critical lower limb ischemia CELLULITIS RT FOOT Procedures EMERGENCY Referral ID Status Reason Start Date Expiration Date Visits Requ ested Visits Authorized [id number] 1 1 Encounter Details Date Type Department Care Team Description 08/06/2017 Laboratory Appointment Lab [place] [facility] [place]schemia of foot [facility] [place] [address] Social History Tobacco Use Types Packs/Day [...] Nobles MD [facility] ER DR [place], [place] [address] (Wo rk) documented as of [...] Signature Prealbumin 19 (L) 20 - 40 [facility] Comment: Prealbumin levels are [...] Organization Address City/State/[place] [address] (ABNORMAL) Basic Metabolic Panel (non-fasting) (08/06/2017 12:32 PM EST) P athologist Signature Glucose Lvl 92 65 - 199 [facility] mg/dL [facility] Comment: Diabetes: >=200 mg/dL plus symp toms BUN 29 (H) 10 - 20 mg/dL [facility]OR[facility]ORY Creatinine 1.33 0.80 - 1.50 mg/dL [facility] LABORATORY Sodium 138 135 - 145 mmol/L [facility] [...] Chloride 97 (L) 98 - 107 mmol/L [facility]OR[facility] CO2 25 22 - 31 mmol/L [facility] Anion Gap 16 (H) 5 - 15 mmol/L [facility] LABOR[facility]ORY Calcium 8.5 8.5 - 10.5 mg/dL [facility] LABORATORY Estimated GFR 53 (L) >=60 KATALINA Wyatt [facility] LABORAT[facility] Comment: The reported eGFR should be multiplied b y 1.2 for patients. The MDRD is not an appropriate measure o f renal function for patients with body mass extremes or in patients with acute kidney failure. http://FooPets/DHnkdep http://FooPets/DHMCnkf Specimen Anatomical Collection Method Collection Time Receive d Time (Source) Location / / Volume Laterality Blood specimen 08/06/2017 12:32 8 1:15 (specimen) PM EST PM EST Resulting Agency Comment Spec In Lab Arik Clement MD CHEMISTRY ORDERABLES Performing Organization Address City/State/[place] [address] (ABNORMAL) Hemogram (08/06/2017 12:32 PM EST) Analysis Performed At Patho logist Time Signature WBC 11.8 (H) 4.0 - 9.5 KATALINA RYAN x10(3)/[facility] LABORATORY RBC 3.49 (L) 4.58 - KATALINA RYAN 5.54 [facility] x10(6)/[facility] LABORATORY Hemoglobin 9.9 (L) 13.7 - KATALINA RYAN 16.5 gm/dL [facility] LABORATORY Hematocrit 32.0 (L) 40.5 - KATALINA RYAN 48.5 % [facility] LABORATORY MCV 91.7 82.9 - KATALINA RYAN 93.1 [facility] LABORATORY MCH 28.4 27.5 - NeedishRYAN 32.1 pg [facility] LABORATORY MCHC 30.9 (L) 32.0 - KATALINA RYAN 35.7 gm/dL [facility] LABORATORY Platelets 326 145 - 357 KATALINA RYAN x10(3)/[facility] LABORATORY RDWSD 53.4 (H) 36.0 - NeedishRYAN 45.0 [facility] LABORATORY RDWCV 16.0 (H) 11.4 - KATALINA RYAN 13.8 % [facility] LABORATORY MPV 9.1 7.6 - 12.9 KATALINA [facility] LABORATORY nRBC % Auto 0.0 % [facility] LABORATORY nRBC Abs Auto 0.000 0.000 - [facility] 0.000 [facility] x10(3)/[facility] LABORATORY Specimen Anatomical Collection Method Collection Time Receive d Time (Source) Location / / Volume Laterality Blood specimen 08/06/2017 12:32 8 1:15 (specimen) PM EST PM EST Resulting Agency Comment Spec In Lab Arik Clement MD HEMATOLOGY ORDERABLES Performing Organization Address City/State/[place] [address] documented in this encounter Visit Diagnoses Diagnosis Ischemia of foot Unspecified circulatory system disorder documented in this encounter Care Teams Field Assembly Supervisor Relationship Specialty Start Date End Date Lovely Vicente MD PCP - General 04/16/[address] [place] [address] documented as of this encounter
--- OUTSIDE RECORDS SUMMARY | 2022-02-20 08:13 | XMS_ITS | Encounter Summary ---
:1945 Author Organization [facility] [place] [address] Care Team Providers Name Role Phone Lovely Vicente MD Primary Care Provider Reason for Visit Auth/Cert Specialty Diagnoses / Procedures Referred By Contact Refer red To Contact Diagnoses Critical lower limb ischemia CELLULITIS RT FOOT Procedures EMERGENCY Referral ID Status Reason Start Date Expiration Date Visits Requ ested Visits Authorized [id number] 1 1 Encounter Details Date Type Department Care Team Description 08/04/2017 Laboratory Appointment Lab [address] [place] [address] Social History Tobacco Use Types Packs/Day [...] Nobles MD [facility] ER CARDIOLOGY [place], [place] [address] (Wo rk) documented as of this encounter Visit Diagnoses Not on filedocumented in this encounter Care Teams Automatic Print Developer Relationship Specialty Start Date End Date Lovely Vicente MD PCP - General 04/16/[address] [place] [address] documented as of this encounter
--- OUTSIDE RECORDS SUMMARY | 2022-02-20 08:13 | XMS_ITS | Encounter Summary ---
:1945 [place] [address] Care Team Providers Name Role Phone Lovely Vicente MD Primary Care Provider Encounter Details Date Type Department Care Team Description 08/04/2017 Notes Only Pain Management at Barbra Bruno, [facility] [place] [address] [place] [address] [phone] (Wo rk) Social History Tobacco Use Types [...] bid) at this time. Barbra Soares, MSN, DIRECTOR OF STRATEGIC INITIATIVES-BC, [facility] documented in this encounter Plan of Treatment Upcoming Encounters Date Type Specialty Care Team Description 03/26/2022 Office Visit Cardiology Vitaliy Nobles MD [facility] ER CARDIOLOGY [place], [place] [address] (Wo rk) documented as of this encounter Visit Diagnoses Not on filedocumented in this encounter Care Teams Butter Melter Relationship Specialty Start Date End Date Lovely Vicente MD PCP - General 04/16/[address] [place] [address] documented as of this encounter
--- OUTSIDE RECORDS SUMMARY | 2022-02-20 08:13 | XMS_ITS | Encounter Summary ---
:1945 Author Organization [facility] Address [facility] [address] [place] [address] Care Team Providers Name Role Phone Lovely Vicente MD Primary Care Provider Reason for Visit Auth/Cert Specialty Diagnoses / Procedures Referred By Contact Refer red To Contact Diagnoses Critical lower limb ischemia CELLULITIS RT FOOT Procedures EMERGENCY Referral ID Status Reason Start Date Expiration Date Visits Requ ested Visits Authorized [id number] 1 1 Encounter Details Date Type Department Care Team Description 08/04/2017 Laboratory Lab 3L [place] Cardiomyopathy, unspecified type; Appointment [facility] [place] Systolic congestive heart failure, unspecified congestive heart failure chronicity; Hospital Coronary artery rupture; [facility] Ischemic cardiomyopathy; Drive Atherosclerosis of [place] river co ronary artery, angina presence unspecified, unspecified whether salt river or transplanted heart; [place], [place] Essential hyper tension, malignant; [id number] 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 PROTHROMBIN TIME Routine 08/04/2017 12:55 Coronary artery Resu lts for this PM EST rupture procedure are in Ischemic the results cardiomyopathy section. Atherosclerosis of [place] coronary artery, angina presence unspecified, unspecified whether salt river or transplanted heart URIC ACID Routine 08/04/2017 [...] with the results diabetic section. nephropathy, unspecified halfway insulin use status Essential hypertension, malignant COMPREHENSIVE Routine 08/04/2017 12:55 Essential Results fo r this METABOLIC PANEL PM EST hypertension, procedure a re in (NON-FASTING) malignant the results section. documented in this encounter Results Uric acid (08/04/2017 12:55 PM EST) P athologist Signature Uric Acid 7.1 3.5 - 8.5 [facility] mg/dL [facility] Specimen Anatomical Collection Method Collection Time Receive d Time (Source) Location / / Volume Laterality Blood specimen 08/04/2017 12:55 8 1:01 (specimen) PM EST PM EST Resulting Agency Comment Spec In Lab Lovely Vicente MD CHEMISTRY ORDERABLES Performing Organization Address City/State/[place] [address] (ABNORMAL) Hemogram (08/04/2017 12:55 PM EST) Analysis Performed At Patho logist Time Signature WBC 15.8 (H) 4.0 - 9.5 [facility] x10(3)/[facility] LABORATORY RBC 3.48 (L) 4.58 - [facility] 5.54 [facility] x10(6)/[facility] LABORATORY Hemoglobin 9.9 (L) 13.7 - [facility] 16.5 gm/dL [facility] Hematocrit 31.4 (L) 40.5 - [facility] 48.5 % [facility] MCV 90.2 82.9 - [facility] 93.1 [facility] ER LABORATORY MCH 28.4 27.5 - [facility] 32.[address] [facility] MCHC 31.5 (L) 32.0 - [facility] 35.7 gm/dL [facility] Platelets 310 145 - 357 [facility] x10(3)/[facility] LABORATORY RDWSD 51.8 (H) 36.0 - [facility] 45.0 [facility] ER LABORATORY RDWCV 15.8 (H) 11.4 - [facility] 13.8 % [facility] LABORATORY MPV 8.9 7.6 - 12.9 [facility] LABORATORY nRBC % Auto 0.0 % [facility] LABORATORY nRBC Abs Auto 0.000 0.000 - [facility] 0.000 [facility] x10(3)/[facility] LABORATORY Specimen Anatomical Collection Method Collection Time Receive d Time (Source) Location / / Volume Laterality Blood specimen 08/04/2017 12:55 8 1:01 (specimen) PM EST PM EST Resulting Agency Comment Spec In Lab Lovely Vicente MD HEMATOLOGY ORDERABLES Performing Organization Address City/State/[place] [address] (ABNORMAL) Comprehensive metabolic panel (non-fasting) (08/04/2017 12:55 PM EST) P athologist Signature Glucose Lvl 208 (H) 65 - 199 [facility] mg/dL [facility] Comment: Diabetes: >=200 mg/dL plus symp toms BUN 32 (H) 10 - 20 mg/dL [facility] LABORATORY Creatinine 1.58 (H) 0.80 - 1.50 mg/dL [facility] Sodium 136 135 - 145 [...] Chloride 97 (L) 98 - 107 mmol/L [facility] LABORATORY CO2 25 22 - 31 mmol/L [facility] LABORATORY Anion Gap 14 5 - 15 mmol/L [facility] LABORATORY Calcium 8.6 8.5 - 10.5 mg/dL [facility] LABORATORY Total Protein 6.9 6.1 - 8.0 gm/dL [facility] LABORATORY Albumin 3.4 3.2 - 5.2 gm/dL [facility] LABORATORY AST 20 0 - 39 unit/L [facility] LABORATORY ALT 21 0 - 55 unit/L [facility] LABOR[facility]ORY Alk Phos 93 40 - 120 unit/L [facility] LABORATORY Total Bilirubin 0.4 0.2 - 1.3 mg/dL [facility] LABORATORY Estimated GFR 43 (L) >=60 [facility] LABORATORY Comment: The reported eGFR should be multiplied b y 1.2 for patients. The MDRD is not an appropriate measure o f renal function for patients with body mass extremes or in patients with acute kidney failure. http://PIERIS [employer].Shopeando/DHnkdep http://Affinegy/DHMCnkf Specimen Anatomical Collection Method Collection Time Receive d Time (Source) Location / / Volume Laterality Blood specimen 08/04/2017 12:55 8 1:01 (specimen) PM EST PM EST Resulting Agency Comment Spec In Lab Lovely Vicente MD CHEMISTRY ORDERABLES Performing Organization Address City/State/[place] [address] (ABNORMAL) Hemoglobin A1c (08/04/2017 12:55 PM EST) Analysis Performed At Patho logist Time Signature Hemoglobin A1C 6.2 (H) 4.3 - 5.6 [facility] LABORATORY Comment: Reference Range: 4.3 - [...] [id number] Est Avg Gluc See note mg/dL [facility] Comment: Estimated Average Glucose [...] with hemoglobinopathies. Additional resources are available on [facility] ADA website. Macario HAMMOND, Ruthann J, Deysi R, et al. ??Tr anslating the A1C assay into estimated average glucose values. ??Diabetes Care 2008:31(8):1020-5701. Specimen Anatomical Collection Method Collection Time Receive d Time (Source) Location / / Volume Laterality Blood specimen 08/04/2017 12:55 8 1:01 (specimen) PM EST PM EST Resulting Agency Comment Spec In Lab Lovely iVcente MD CHEMISTRY ORDERABLES Performing Organization Address City/State/[place] [address] (ABNORMAL) Prothrombin Time (08/04/2017 12:55 PM EST) P athologist Signature PT 35.4 (H) 11.8 - 14.0 [facility] LABORATORY INR 3.5 (H) 0.9 - 1.1 [facility] Vicente MD HEMATOLOGY ORDERABLES Performing Organization Address City/[facility]/[place] [address] (ABNORMAL) pro-Brain Natriuretic Peptide (08/04/2017 12:55 PM EST) P athologist Signature ProBNP 3,133 (H) <=125 [facility] pg[facility]mL [facility] Specimen Anatomical Collection Method Collection Time Receive d Time (Source) Location / / Volume Laterality Blood specimen 08/04/2017 12:55 8 1:01 (specimen) PM EST PM EST Resulting Agency Comment Spec In Lab Danette Maxwell APRN CHEMISTRY ORDERABLES Performing Organization Address City/State/[place] [address] documented in this encounter Visit Diagnoses Diagnosis Cardiomyopathy, unspecified type Systolic congestive heart failure, unspe cified congestive heart failure chronicity Coronary artery rupture Acute myocardial infarction, unspecified site, episode of care unspecified Ischemic cardiomyopathy Other specified forms of chronic ischemi c heart disease Atherosclerosis of [place] coronary arter y, angina presence unspecified, unspecified whether salt river or transplanted heart Essential hypertension, malignant Diabetes mellitus due to underlying cond ition with diabetic nephropathy, 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
--- OUTSIDE RECORDS SUMMARY | 2022-02-20 08:13 | XMS_ITS | Encounter Summary ---
:1945 Author Organization [facility] [place] [address] Care Team Providers Name Role Phone Lovely Vicente MD Primary Care Provider Encounter Details Date Type Department Care Team Description 08/04/2017 Orders Only Cardiac Surgery Makayla Wilson APRN [facility] [place] [address] CARDIAC SURGERY [phone] [place], [place] [address] (Wo rk) Social History Tobacco [...] MD [facility] ER [address] [place], [place] [address] (Wo rk) documented as of this encounter Visit Diagnoses Not on filedocumented in this encounter Care Teams Staff Home Therapy Rn Relationship Specialty Start Date End Date Lovely Vicente MD PCP - General 04/16/[address] [place] [address] documented as of this encounter
--- OUTSIDE RECORDS SUMMARY | 2022-02-20 08:13 | XMS_ITS | Encounter Summary ---
:1945 Author Organization [facility] [place] [address] Care Team Providers Name Role Phone Lovely Vicente MD Primary Care Provider Reason for Visit Auth/Cert Specialty Diagnoses / Procedures Referred By Contact Refer red To Contact Diagnoses Critical lower limb ischemia CELLULITIS RT FOOT Procedures EMERGENCY Referral ID Status Reason Start Date Expiration Date Visits Requ ested Visits Authorized [id number] 1 1 Encounter Details Date Type Department Care Team Description 08/04/2017 Office Visit Cardiology at [facility] Danette Maxwell Incisional pain; [facility], 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 Allergies: Review of patient's allergies [...] Nobles MD [facility] ER CARDIOLOGY [place], [place] [address] (Wo rk) documented as of [...] Daniele gutiérrez 08/04/2017 4:13 PM Danette Maxwell BEAM DEPARTMENT SUPERVISOR IMG DX ORDERABLES documented in this encounter Visit Diagnoses Diagnosis Incisional pain Disturbance of skin sensation Ischemic cardiomyopathy Other specified forms of chronic ischemi c heart disease ASCVD (arteriosclerotic cardiovascular d isease) Unspecified cardiovascular disease Systolic heart failure, unspecified hear t failure chronicity Incisional pain Disturbance of skin sensation documented in this encounter Care Teams Technical Engineer Relationship Specialty Start Date End Date Lovely Vicente MD PCP - General 04/16/[address] [place] [address] [address] [place] [address] documented as of this encounter
--- OUTSIDE RECORDS SUMMARY | 2022-02-20 08:13 | XMS_ITS | Encounter Summary ---
:1945 Author Organization [facility] [place] [address] Care Team Providers Name Role Phone Lovely Vicente MD Primary Care Provider Reason for Visit Auth/Cert Specialty Diagnoses / Procedures Referred By Contact Refer red To Contact Diagnoses Critical lower limb ischemia CELLULITIS RT FOOT Procedures EMERGENCY Referral ID Status Reason Start Date Expiration Date Visits Requ ested Visits Authorized [id number] 1 1 Encounter Details Date Type Department Care Team Description 08/09/2017 Surgery Main Operating Room Yonathan Smith AM PUTATION, Mary Hitchcock MD TRANSMETATARSAL ([facility] 12.71) [facility] DR Siddiqu[place] [address] [place] [address] [phone] Social History Tobacco Use Types Packs/Day Years [...] 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 Patient [...] Dorsalis Pedis (Ankle) Artery ?132 ? 0.94 ??[place]-Biphasic ? Posterior Tibial (Ankle) Artery ??154 ? 1.10 ??[place]-Biphasic ? Fourth Toe ? 67 ?0.48 ?? [...] the foot. Discharge Conditions/Prognosis: Good Discharge to: [facility] Rehab Discharge Medications: Your Medications New Medications [...] For any problems or questions please call [phone] ZELDA Smith, tv news director Nurse Clinician For issues on weeknights after 5pm and weekends please call [phone] and ask for the Vascular Fellow salesperson burial plots. General Instructions None Future Appointments and Orders Future Appointments Provider Department Dept Phone 08/26/2017 4:00 PM Aurelia Rivera PA [facility] [place] [phone] 09/07/2017 3:00 PM LAB, THREE L Lab 3L [facility] [phone] 09/07/2017 4:00 PM Luz Prescott MD Endocrinology [facility] [place] [phone] 09/09/2017 8:00 AM Barbra Soares APRN [facility] [place] [phone] Please bring a list of your current [...] For any problems or questions please call [phone] ZELDA Smith, tv news director Nurse Clinician For issues on weeknights after 5pm and weekends please call [phone] and ask for the Vascular Fellow salesperson burial plots. documented in this encounter Medications at Time [...] Destination: [facility] ([facility]) [address] [place], [place] [address] Transportation: with (at bedside) Time of Discharge: by 12 noon Level of Care: swing Patient Aware: yes Family Notified: yes Md to call report to: Yissel Quintero SOLAR MANAGER already called RN to call report to: [phone] Shirin Wolf Office of Care Management Pager [phone] Shirin Wolf RN - 08/16/2017 10:50 AM EST [facility] has offered pt swing bed. Pt and accept bed. will transport via car. SOLAR MANAGER Yissel Quintero aware; d/c paperwork will be completed by 12 noon. [facility] requests pt arrival by 1400 today; SOLAR MANAGER, RN, and family aware. SOLAR MANAGER called [facility] and was told that they prefer pt to arrive with wound vac dressing applied but clamped. SOLAR MANAGER applied new wound vac dressing. RN has [facility] number to call report. PASSR completed; SOLAR MANAGER paged to request provider signature in highlighted space. Indigo from [facility] notified via email that home wound vac now cancelled; [facility] has picked up from room and order cancelled. Packet started and provided to heating unit installer. Medicare important message explained to patient, patient signed. Copy provided to patient and signature page to OCM for inclusion in pt EMR. L Radha Powers Yoselin - 08/16/2017 10:34 AM EST Office of Care Management/Real Estate Officer Patient Name: Gregory Hoang : 1945 Patient has been offered a swing bed at [facility]. The patient will be transported by private transportation. No MD to MD report necessary Please call Nursing Report to [phone], ask for zipper setter. Info to accompany patient: Narcotic Prescriptions Copies of Medication Administration Records and IV sheets for past 10 days. Plan: Real Estate Officer will be available to the patient and Roundhouse Supervisor-RN and/or Cook Pressure for further assistance. Patient will be discharged to: [place] [id number] Radha Powers, Real Estate Officer Mira Truong, VAMSI - 08/15/2017 10:05 PM EST [address] Flores to ask if he wanted to hold metoprolol dose. BP 95/58. OK to hold this dose Courtney Brito - 08/15/2017 3:26 PM EST Office of Care Management(OCM)/Real Estate Officer(RS)/ D/C Planning re : Patient is medically ready for d/c today. RS has been in contact with [facility] to see if they could offer a bed. [facility] is still reviewing the case and need their MD to review chart prior to accepting or declining. OCM team needs to check in with [facility] tomorrow to check on status. 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 Vac in place. Rehab referrals ongoing. Can ambulate in hallway. Change VAC at bedside today. Naty Colindres RN - 08/14/2017 1:33 PM EST Patient Name: Gregory Hoang Patient Age: 72 y.o. Birthdate: 1945 Admit date: 08/06/2017 Attending Physician: Yonathan Smith MD We want him to go to a place for intensive therapy and not at a long-term where he will be just sitting there and not getting any therapy. . Contacted by direct care RN, who said that patient and would like information about patient's referral to: [facility] PHONE: [phone] FAX: [phone] CM spoke with RS who said that [...] rehab. Await recommendations from PT. Covering pager #[phone]. 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 Soldering Machine Operator Helper Kaitlin Saha, RN Pager #[phone] Payam Rosales - 08/13/2017 2:37 PM EST [employer] Encounter Note Patient Name: Gregory Hoang : [id number] MR#: [id number] Admit Date: 08/06/2017 1:41 PM Hospital Day 7 days Narrative: Visited to introduce and assess acceptance of [employer] services. Pt was awake, alert, oriented and in chair and family was there. Assessment:Patient coping positively with stresses of illness/hospitalization at this time. Pt says that he is hoping to get better and his family was there. Pt says that he has family care and supportand taking one day at time. Intervention and Outcome: Provided emotional support and encouraging presence. 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 A letter describing our affiliations was reviewed with them and theywere educated about their right to choose where referrals are placed. Patient requests referral to [facility]. PHONE: [phone] FAX: [phone]. And Home NPWT (Negative Pressure Wound Therapy) aka wound vac device made available to pt. Serial # confirmed. Reviewed [facility] Proof of Delivery/Assignment of Benefits Statement(POD/AOB) Form w patient or authorized agent signing on behalf of patient. Copy of POD/AOB provided to pt and other copy faxed to [employer] @ fax# [phone] Expected date of discharge: 08/12/2017. 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 Address: [address] [place] [address] [place] [address] (home) Mobile: Telephone Information: Referring Provider: No [...] at [facility] ENDOSCOPY ??? PRO ENDOSCOPY W/VIDEO-ASST VEIN HARVEST, CABG Right 07/07/2017 ENDOSCOPIC HARVEST VEIN(S) FOR CABG (WRVU 0.31) performed by Yuan Retana MD at [facility] MAIN OR ??? 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 Address: [address] [place] [address] [place] [address] (home) Mobile: Telephone Information: Referring Provider: No [...] 7.93) performed by Yuan Retana MD at [facility] OR ??? PRO COLONOSCOPY, REMV LESN, SNARE 01/16/2014 COLONOSCOPY, POLYPECTOMY, REMOVAL LESION BY SNARE performed by Nohemi Jaimes MD at [facility] ENDOSCOPY ??? PRO ENDOSCOPY W/VIDEO-ASST VEIN HARVEST, CABG Right 07/07/2017 ENDOSCOPIC HARVEST VEIN(S) FOR CABG (WRVU 0.31) performed by Yuan Retana MD at [facility] MAIN OR ??? 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 Unsuccessful draw attempt, another optometry professor will come [facility] to collect blood for PTT test. 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 Vascular resident salesperson burial plots and will forward result to the team prior to rounds. 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 Patient [...] at [facility] ENDOSCOPY ??? PRO ENDOSCOPY W/VIDEO-ASST VEIN HARVEST, CABG Right 07/07/2017 ENDOSCOPIC HARVEST VEIN(S) FOR CABG (WRVU 0.31) performed by Yuan Retana MD at [facility] MAIN OR ??? PRO THYROIDECTOMY 03/28/2013 THYROIDECTOMY, TOTAL OR COMPLETE performed by Manny Mcknight MD at [facility] MAIN OR Functional Status/Social Hx: Quit [...] blue toes with CTA showing R GAS AND OIL SERVICER pseudoaneurysm (now thrombosed) and occluded ATs bilaterally. [...] 5. Completion RLE angiogram 6. L GAS AND OIL SERVICER angiogram 7. 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 - L GAS AND OIL SERVICER angriogram demonstrated: High femoral bifurcation over the proximal half of the femoral head. L GAS AND OIL SERVICER access in the distal L GAS AND OIL SERVICER. - Closure device: Mynx Technical Procedure: The [...] for a 45cm 5F Destination. V18 and Greig and QuickCross catheters were used to select [...] A stationed picture of the L GAS AND OIL SERVICER was performed as the patient was noted to have a very high bifurcation. Access appeared in the distal R GAS AND OIL SERVICER. Closure and sheath removal was performed with [...] PM EST 1440 report called to 5 [place] nurse Tessa RN documented in this encounter [...] with pt and pt's spouse. Discharge to [facility]. Goal: Individualization & Mutuality Outcome: Outcome (s) [...] sit/sit to supine -- Bed Mobility Goal, Billings Level independent -- Bed Mobility Goal, Date [...] days -- Transfer Training Goal, Activity Type aof-of-uytbn/wfcju-xk-yfy -- Transfer Train Goal, Billings Level conditional independence -- Transfer Train Goal, [...] call cabello within reach, Hourly rounding by RN/RADIO TELEVISION TECHNICAL DIRECTOR. Bed alarm / Chair alarm. Patient-specific fall [...] Smith MD - 08/15/2017 6:28 PM EST [facility] [place] Patient Name: Gregory Hoang : [id number] MR#: [id number] Case Date: 08/09/2017 Surgeon: Surgeon(s) and Role: [...] 5. Completion RLE angiogram 6. L GAS AND OIL SERVICER angiogram 7. Mynx closure Precautions/Restrictions: fall, sternal [...] feet/ bed -> bathroom). Anticipated Discharge Disposition: detention facility, other (see comments) (or swing bed) Pager: [phone] BASSAM ELIAS, PT 08/14/2017 Inpatient Physical Therapy [...] to Achieve by discharge Gait Training Goal, Billings Level conditional independence;set up required Gait Training [...] these facilities over the weekend except for [facility]. CM spoke with [facility] CM Drea Sandhu, VAMSI who said that they do not anticipate any beds over the weekend. Reviewed with patient/ that they need to be aware that patient will need to take the first bed offered at the facilities that they make referrals to. Their choices are: 1- [facility] PHONE: [phone] FAX: [phone] 2- [facility] ([facility]) [address] [place] [address] 3- [facility])([facility]) [address] [place] [address] I have discussed Medicare/Private Insurance [...] RS/CM on Wednesday to follow-up. Covering pager #[phone] for today. Plan of Care - Henrique [...] additional findings of pseudoaneurysm on R GAS AND OIL SERVICER and bilateral anterior tibial artery occlusions. Was [...] an outpatient once discharged. Have patient call [phone] to set up an appointment. Follow-up: Dermatology will sign-off for now. Please do not hesitate to contact us if you have any questions orconcerns. Impression and Recommendations discussed with primary team on 08/13/2017. Karo Henderson MD Resident in Dermatology Section of Dermatology, Department of Surgery [facility] Pager [phone] Patient seen and evaluated with staff Weather Observer: Halima Cordero MD Section of Dermatology [facility] Level of Resident Supervision: Direct [...] Outcome: Ongoing (Interventions Implemented as Appropriate) 08/12/17 9156 Coping/Psychosocial Plan Of Care Reviewed With patient;spouse [...] 5. Completion RLE angiogram 6. L GAS AND OIL SERVICER angiogram 7. Mynx closure Active Non-Hospital Problems [...] home with home health ([facility] PT&OT) Pager: [phone] YASIR TELLO OT 08/12/2017 Occupational Therapy Rehabilitation [...] 5. Completion RLE angiogram 6. L GAS AND OIL SERVICER angiogram 7. Mynx closure Past Medical History: [...] with 24/7 assistance and maximal services) Pager: [phone] NICHOLAS MORA, PT 08/12/2017 Physical Therapy Rehabilitation [...] sit/sit to supine -- Bed Mobility Goal, Billings Level independent -- Bed Mobility Goal, Outcome Achieved -- goal ongoing Goal: Gait Training Goal Stand Alone Therapy Goal Outcome: Ongoing (Interventions Implemented as Appropriate) 08/11/17 1310 08/12/17 1510 Gait Training Goal Gait Training Goal, Date Established 08/11/17 -- Gait Training Goal, Time to Achieve 5 - 7 days -- Gait Training Goal, Billings Level conditional independence -- Gait Training Goal, [...] days -- Transfer Training Goal, Activity Type nba-ln-zcepg/fwaan-gh-hji -- Transfer Train Goal, Billings Level conditional independence -- Transfer Training Goal, [...] Smith MD - 08/11/2017 2:52 PM EST [facility] [place] Note Patient Name: Gregory Hoang : [id number] MR#: [id number] Case Date: 08/11/2017 Surgeon: Surgeon(s) and Role: [...] 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 Completion RLE angiogram 6. L GAS AND OIL SERVICER angiogram 7. Mynx closure He is very [...] Anticipated Discharge Disposition: inpatient rehabilitation facility Pager: [phone] LAWRENCE GONZALEZ, PT 08/11/2017 Physical Therapy Rehabilitation [...] to sit/sit to supine Bed Mobility Goal, Billings Level independent Goal: Gait Training Goal Stand Alone Therapy Goal Outcome: Ongoing (Interventions Implemented as Appropriate) 08/11/17 1310 Gait Training Goal Gait Training Goal, Date Established 08/11/17 Gait Training Goal, Time to Achieve 5 - 7 days Gait Training Goal, Billings Level conditional independence Gait Training Goal, Assist [...] 7 days Transfer Training Goal, Activity Type bcd-yp-dipbx/yxdmz-sw-lyk Transfer Train Goal, Billings Level conditional independence Plan of David DelloAnnetta [...] call cabello within reach, Hourly rounding by RN/RADIO TELEVISION TECHNICAL DIRECTOR. Bed alarm / Chair alarm. ? Patient-specific [...] 04/05/2013 Hospitalizations Within the Past 30 Days: [facility] [place]/2017 Anticipated Length Of Stay (If known): Expected Length of Hospitalization: 5-7 days2-3 days Current Decision-Making Capacity: Alert and oriented x 4 Advance Care Planning: on file Ksiha Hoang [facility] [phone] Current Coping/Education/Information Needs: pt and spouse state [...] Health/Prescription Coverage: Primary Insurance: MEDICARE Secondary Insurance: [employer] [place] Prescription Coverage: See above Preferred Pharmacy: [facility] Other: N/A Primary Care Provider: Lovely Vicente MD [phone] Patient/Caregiver Goals of Treatment: Patient plans to return home when medically ready Potential Needs for Transition of Care: Rehab/SNF: N/A Home Health: [facility]. DME: pt has a cane and walker [...] of care planning. Kaitlin Saha RN Pager: [phone] Plan of Care - Melba Jaramillo RN [...] Overview Goal: Plan of Care Review 08/08/17 8574 Coping/Psychosocial Plan Of Care Reviewed With patient [...] call cabello within reach, Hourly rounding by RN/RADIO TELEVISION TECHNICAL DIRECTOR. Bed alarm / Chair alarm. Patient-specific fall prevention interventions for sensory deficits provided, if applicable: [X] Yes CPG GOAL OUTCOME EVALUATION: Goal: Fall Prevention-Safe Patient Handling Outcome: Ongoing (Interventions Implemented as Appropriate) 08/06/17 1700 08/06/17199908/07/17 8484 Positioning Body Position -- up in chair [...] at bedside and MD TEAM Carrying pager [phone] contacted (via Radio page) and notified of [...] [facility] ER DR CARDIOLOGY [place], [place] 0375 (Wo rk) documented as of [...] section. TYPE AND SCREEN Routine 08/09/2017 1:10 ([facility]/SHANDA) AM EST BASIC METABOLIC PANEL Routine 08/09/2017 [...] Signature POC Glucose 160 65 - 199 [facility] mg/dL [facility] Comment: Supplemental ranges: <140 mg/dL before meals <180 mg/dL all other times of the day Specimen Anatomical Collection Method Collection Time Receive d Time (Source) Location / / Volume Laterality Blood specimen 08/16/2017 7:28 AM 018 7:28 (specimen) EST AM EST Yonathan Smith MD POINT OF CARE TEST ORDERABLE S Performing Organization Address City/State/ZIP [place] [address] (ABNORMAL) Differential, Automated (08/16/2017 5:08 AM EST) Patholo gist Method Time Signature Neutrophils % 73.9 % [facility] Neutr Abs (ANC) 5.37 1.70 - [facility] 6.10 [facility] x10(3)/[facility] LABORATORY Lymphocytes % 10.1 % [facility] Lymphocytes Abs 0.7 (L) 0.9 - 3.2 [facility] x10(3)/[facility] LABORATORY Monocytes % 10.1 % [facility] Monocyte Abs 0.7 0.3 - 0.9 [facility] x10(3)/[facility] LABORATORY Eosinophils % 5.1 % [facility] Eosinophils Abs 0.4 0.0 - 0.4 [facility] x10(3)/[facility] LABORATORY Basophils % 0.4 % [facility] Basophils Abs 0.0 0.0 - 0.1 [facility] x10(3)/[facility] LABORATORY Immature Gran % 0.40 % [facility] Comment: Immature [...] 0.04 x10(3)/[facility] MAR Y [facility] LABORATORY Specimen Anatomical Collection Method Collection Time Receive d Time (Source) Location / / Volume Laterality Blood specimen 08/16/2017 5:08 AM 018 5:20 (specimen) EST AM EST Resulting Agency Comment Spec In Lab Yonathan Smith MD HEMATOLOGY ORDERABLES Performing Organization Address City/State/ZIP Code Phon e Number [place] [id number] (ABNORMAL) Hemogram (08/16/2017 5:08 AM EST) Analysis Performed At Patho logist Time Signature WBC 7.3 4.0 - 9.5 [facility] x10(3)/[facility] LABORATORY RBC 3.36 (L) 4.58 - [facility] 5.54 [facility] x10(6)/[facility] LABORATORY Hemoglobin 9.7 (L) 13.7 - [facility] 16.5 gm/dL [facility] Hematocrit 30.3 (L) 40.5 - [facility] 48.5 % [facility] MCV 90.2 82.9 - [facility] 93.1 fL [facility] MCH 28.9 27.5 - [facility] 32.1 pg [facility] MCHC 32.0 32.0 - [facility]BAR[facility] DAVIS 35.7 gm/dL [facility] Platelets 282 145 - 357 [facility] LABORATORY RDWSD 53.9 (H) 36.0 - [facility] RYAN 45.0 [facility] LABORATORY RDWCV 16.5 (H) 11.4 - [facility] 13.8 % [facility] MPV 9.0 7.6 - 12.9 [facility] LABORATORY nRBC % Auto 0.0 % [facility] nRBC Abs Auto 0.000 0.000 - [place] RYAN 0.000 [facility] x10(3)/[facility] LABORATORY Specimen Anatomical Collection Method Collection Time Receive d Time (Source) Location / / Volume Laterality Blood specimen 08/16/2017 5:08 AM 018 5:20 (specimen) EST AM EST Resulting Agency Comment Spec In Lab Yonathan Smith MD HEMATOLOGY ORDERABLES Performing Organization Address City/State/ZIP [place] [address] (ABNORMAL) Basic Metabolic Panel (non-fasting) (08/16/2017 5:08 AM EST) P athologist Signature Glucose Lvl 141 65 - 199 [facility] mg/dL [facility] Comment: Diabetes: >=200 mg/dL plus symp toms BUN 29 (H) 10 - 20 mg/dL [facility] Creatinine 1.25 0.80 - 1.50 mg/dL [facility] Sodium 140 135 - 145 mmol/L [facility] [...] estions. Chloride 99 98 - 107 mmol/L [facility] CO2 28 22 - 31 mmol/L [facility] Anion Gap 13 5 - 15 mmol/L [facility] Calcium 8.7 8.5 - 10.5 mg/dL [facility] Estimated GFR 57 (L) >=60 [facility] Comment: The reported eGFR should be multiplied b y 1.2 for patients. The MDRD is not an appropriate measure o f renal function for patients with body mass extremes or in patients with acute kidney failure. http://[facility]/DHnkdep http://[facility]/DHMCnkf Specimen Anatomical Collection Method Collection Time Receive d Time (Source) Location / / Volume Laterality Blood specimen 08/16/2017 5:08 AM 018 5:20 (specimen) EST AM EST Resulting Agency Comment Spec In Lab Yonathan Smith MD CHEMISTRY ORDERABLES Performing Organization Address [place]/[facility] [address] (ABNORMAL) Prothrombin Time (08/16/2017 5:08 AM EST) P athologist Signature PT 25.2 (H) 11.8 - 14.0 [facility] LABORATORY INR 2.3 (H) 0.9 - 1.1 [facility] [...] Smith MD HEMATOLOGY ORDERABLES Performing Organization Address [place]/[facility] [place] [address] POCT Glucose (08/16/2017 4:09 AM EST) athologist Signature POC Glucose 147 65 - 199 [place] mg/dL [facility] LABORATORY Comment: Supplemental ranges: <140 mg/dL before meals <180 mg/dL all other times of the day Specimen Anatomical Collection Method Collection Time Receive d Time (Source) Location / / Volume Laterality Blood specimen 08/16/2017 4:09 AM 018 4:09 (specimen) EST AM EST Yonathan Smith MD POINT OF CARE TEST ORDERABLE S Performing Organization Address City/State/ZIP [place] [address] POCT Glucose (08/15/2017 11:56 PM EST) athologist Signature POC Glucose 176 65 - 199 [place] mg/dL [facility] LABORATORY Comment: Supplemental ranges: <140 mg/dL before meals <180 mg/dL all other times of the day Specimen Anatomical Collection Method Collection Time Receive d Time (Source) Location / / Volume Laterality Blood specimen 08/15/2017 11:56 8 (specimen) PM EST 11:56 PM EST Yonathan Smith MD POINT OF CARE TEST ORDERABLE S Performing Organization Address City/State/ZIP [place] [address] POCT Glucose (08/15/2017 8:05 PM EST) athologist Signature POC Glucose 136 65 - 199 [place] mg/dL [facility] LABORATORY Comment: Supplemental ranges: <140 mg/dL before meals <180 mg/dL all other times of the day Specimen Anatomical Collection Method Collection Time Receive d Time (Source) Location / / Volume Laterality Blood specimen 08/15/2017 8:05 PM 018 8:05 (specimen) EST PM EST Yonathan Smith MD POINT OF CARE TEST ORDERABLE S Performing Organization Address City/State/ZIP Code Phon e Number [address] (ABNORMAL) POCT Glucose (08/15/2017 4:50 PM EST) athologist Signature POC Glucose 232 (H) 65 - 199 [place] mg/dL [facility] LABORATORY Comment: Supplemental ranges: <140 mg/dL before meals <180 mg/dL all other times of the day Specimen Anatomical Collection Method Collection Time Receive d Time (Source) Location / / Volume Laterality Blood specimen 08/15/2017 4:50 PM 018 4:50 (specimen) EST PM EST Yonathan Smith MD POINT OF CARE TEST ORDERABLE S Performing Organization Address City/State/ZIP Code Phon e Number [address] POCT Glucose (08/15/2017 12:04 PM EST) athologist Signature POC Glucose 135 65 - 199 [facility] LABORATORY Comment: Supplemental ranges: <140 mg/dL before meals <180 mg/dL all other times of the day Specimen Anatomical Collection Method Collection Time Receive d Time (Source) Location / / Volume Laterality Blood specimen 08/15/2017 12:04 8 (specimen) PM EST 12:04 PM EST Yonathan Smith MD POINT OF CARE TEST ORDERABLE S Performing Organization Address City/[facility]/ZIP Code Phon e Number [address] POCT Glucose (08/15/2017 7:36 AM EST) athologist Signature POC Glucose 124 65 - 199 [facility] LABORATORY Comment: Supplemental ranges: <140 mg/dL before meals <180 mg/dL all other times of the day Specimen Anatomical Collection Method Collection Time Receive d Time (Source) Location / / Volume Laterality Blood specimen 08/15/2017 7:36 AM 018 7:36 (specimen) EST AM EST Yonathan Smith MD POINT OF CARE TEST ORDERABLE S Performing Organization Address City/[facility]/ZIP Code Phon e Number [address] (ABNORMAL) Differential, Automated (08/15/2017 6:22 AM EST) [facility] gist Method Time Signature Neutrophils % 76.1 % [facility] LABORATORY Neutr Abs (ANC) 6.62 (H) 1.70 - [facility] 6.10 [facility] x10(3)/[facility] L LABORATORY Lymphocytes % 9.3 % [facility] LABORATORY Lymphocytes Abs 0.8 (L) 0.9 - 3.2 [facility] x10(3)/[facility] LABORATORY Monocytes % 9.4 % [facility] LABORATORY Monocyte Abs 0.8 0.3 - 0.9 [facility] x10(3)/[facility] LABORATORY Eosinophils % 4.0 % [facility] LABORATORY Eosinophils Abs 0.4 0.0 - 0.4 [facility] x10(3)/[facility] LABORATORY Basophils % 0.6 % [facility] LABORATORY Basophils Abs 0.0 0.0 - 0.1 [place] 146110(3)/[facility] LABORATORY Immature Gran % 0.60 % ST [...] Organization Address City/State/ZIP [place] [address] (ABNORMAL) Hemogram (08/15/2017 6:22 AM EST) Analysis Performed At Patho logist Time Signature WBC 8.7 4.0 - 9.5 [facility] x10(3)/[facility] LABORATORY RBC 3.21 (L) 4.58 - [facility] 5.54 [facility] x10(6)/[facility] LABORATORY Hemoglobin 9.1 (L) 13.7 - [place] 16.5 gm/dL [facility] LABORATORY Hematocrit 29.0 (L) 40.5 - [facility] 48.5 % [facility] LABORATORY MCV 90.3 82.9 - [facility] 93.1 [facility] LABORATORY MCH 28.3 27.5 - [facility] 32.1 pg [facility] LABORATORY MCHC 31.4 (L) 32.0 - [facility] 35.7 gm/dL [facility] LABORATORY Platelets 254 145 - 357 [facility] x10(3)/[facility] LABORATORY RDWSD 53.9 (H) 36.0 - [facility] 45.0 [facility] LABORATORY RDWCV 16.3 (H) 11.4 - [facility] 13.8 % [facility] LABORATORY MPV 8.8 7.6 - 12.9 [facility] LABORATORY nRBC % Auto 0.0 % [facility] LABORATORY nRBC Abs Auto 0.000 0.000 - [facility] 0.000 [facility] x10(3)/[facility] LABORATORY Specimen Anatomical Collection Method Collection Time Receive d Time (Source) Location / / Volume Laterality Blood specimen 08/15/2017 6:22 AM 018 6:33 (specimen) EST AM EST Resulting Agency Comment Spec In Lab Yonathan Smith MD HEMATOLOGY ORDERABLES Performing Organization Address City/State/Z[place] [address] (ABNORMAL) Basic Metabolic Panel (non-fasting) (08/15/2017 6:22 AM EST) athologist Signature Glucose Lvl 118 65 - 199 [facility] mg/dL [facility] LABORATORY Comment: Diabetes: >=200 mg/dL plus symp toms BUN 27 (H) 10 - 20 mg/dL [facility] LABORATORY Creatinine 1.12 0.80 - 1.50 mg/dL [facility] LABORATORY Sodium 138 135 - 145 mmol/L [facility] [...] estions. Chloride 98 98 - 107 mmol/L [facility] LABORATORY CO2 29 22 - 31 mmol/L [facility] LABORATORY Anion Gap 11 5 - 15 mmol/L [facility] LABORATORY Calcium 8.8 8.5 - 10.5 mg/dL [facility] LABORATORY Estimated GFR >60 >=60 [facility] LABORATORY Comment: The reported eGFR should be multiplied b y 1.2 for patients. The MDRD is not an appropriate measure o f renal function for patients with body mass extremes or in patients with acute kidney failure. http://[facility]/DHnkdep http://[facility]/DHMCnkf Specimen Anatomical Collection Method Collection Time Receive d Time (Source) Location / / Volume Laterality Blood specimen 08/15/2017 6:22 AM 018 6:33 (specimen) EST AM EST Resulting Agency Comment Spec In Lab Yonathan Smith MD CHEMISTRY ORDERABLES Performing Organization Address City/State/ZIP Code Phon e Number [place] [id number] (ABNORMAL) Prothrombin Time (08/15/2017 6:22 AM EST) athologist Signature PT 21.9 (H) 11.8 - 14.0 [facility] LABORATORY INR 1.9 (H) 0.9 - 1.1 [facility] [...] ORDERABLES Performing Organization Address City/[facility]/ZIP Code Phon e Number [address] POCT Glucose (08/15/2017 4:33 AM EST) athologist Signature POC Glucose 164 65 - 199 [place] mg/dL [facility] LABORATORY Comment: Supplemental ranges: <140 mg/dL before meals <180 mg/dL all other times of the day Specimen Anatomical Collection Method Collection Time Receive d Time (Source) Location / / Volume Laterality Blood specimen 08/15/2017 4:33 AM 018 4:33 (specimen) EST AM EST Yonathan Smith MD POINT OF CARE TEST ORDERABLE S Performing Organization Address City/[facility]/ZIP Code Phon e Number [address] POCT Glucose (08/15/2017 12:12 AM EST) athologist Signature POC Glucose 89 65 - 199 [place] mg/dL [facility] LABORATORY Comment: Supplemental ranges: <140 mg/dL before meals <180 mg/dL all other times of the day Specimen Anatomical Collection Method Collection Time Receive d Time (Source) Location / / Volume Laterality Blood specimen 08/15/2017 12:12 8 (specimen) AM EST 12:12 AM EST Yonathan Smith MD POINT OF CARE TEST ORDERABLE S Performing Organization Address City/[facility]/ZIP Code Phon e Number [address] (ABNORMAL) POCT Glucose (08/14/2017 8:07 PM EST) athologist Signature POC Glucose 204 (H) 65 - 199 [facility] RYAN mg/dL [facility] LABORATORY Comment: Supplemental ranges: <140 mg/dL before meals <180 mg/dL all other times of the day Specimen Anatomical Collection Method Collection Time Receive d Time (Source) Location / / Volume Laterality Blood specimen 08/14/2017 8:07 PM 018 8:07 (specimen) EST PM EST Yonathan Smith MD POINT OF CARE TEST ORDERABLE S Performing Organization Address City/State/ZIP Code Phon e Number [address] POCT Glucose (08/14/2017 5:11 PM EST) athologist Signature POC Glucose 174 65 - 199 [facility] RYAN mg/dL [facility] LABORATORY Comment: Supplemental ranges: <140 mg/dL before meals <180 mg/dL all other times of the day Specimen Anatomical Collection Method Collection Time Receive d Time (Source) Location / / Volume Laterality Blood specimen 08/14/2017 5:11 PM 018 5:11 (specimen) EST PM EST Yonathan Smith MD POINT OF CARE TEST ORDERABLE S Performing Organization Address City/[facility]/ZIP Code Phon e Number [address] POCT Glucose (08/14/2017 12:10 PM EST) athologist Signature POC Glucose 141 65 - 199 [place]HA[place] mg/dL [facility] LABORATORY Comment: Supplemental ranges: <140 mg/dL before meals <180 mg/dL all other times of the day Specimen Anatomical Collection Method Collection Time Receive d Time (Source) Location / / Volume Laterality Blood specimen 08/14/2017 12:10 8 (specimen) PM EST 12:10 PM EST Yonathan Smith MD POINT OF CARE TEST ORDERABLE S Performing Organization Address City/State/Z[place] [address] POCT Glucose (08/14/2017 8:07 AM EST) athologist Signature POC Glucose 158 65 - 199 [place] mg/dL [facility] LABORATORY Comment: Supplemental ranges: <140 mg/dL before meals <180 mg/dL all other times of the day Specimen Anatomical Collection Method Collection Time Receive d Time (Source) Location / / Volume Laterality Blood specimen 08/14/2017 8:07 AM 018 8:07 (specimen) EST AM EST Yonathan Smith MD POINT OF CARE TEST ORDERABLE S Performing Organization Address City/State/ZIP Code Phon e Number [place] [phone] [facility] LABOR[address]ORY Drive (ABNORMAL) Differential, Automated (08/14/2017 4:52 AM EST) [facility] Method Time Signature Neutrophils % 78.6 % [facility] LABORATORY Neutr Abs (ANC) 7.70 (H) 1.70 - [facility] 6.10 [facility] x10(3)/[facility] L LABORATORY Lymphocytes % 7.8 % [facility] LABORATORY Lymphocytes Abs 0.8 (L) 0.9 - 3.2 [facility] x10(3)/[facility] LABORATORY Monocytes % 8.8 % [facility] LABORATORY Monocyte Abs 0.9 0.3 - 0.9 [facility] x10(3)/[facility] LABORATORY Eosinophils % 4.0 % [facility] LABORATORY Eosinophils Abs 0.4 0.0 - 0.4 [facility] x10(3)/[facility] LABORATORY Basophils % 0.5 % [facility] LABORATORY Basophils Abs 0.0 0.0 - 0.1 [facility] x10(3)/[facility] LABORATORY Immature Gran % 0.30 % [facility] LABORATORY Comment: Immature granulocytes(IG's)percentage an d absolute count will include metamyelocytes, myelocytes, and promyelo cytes. Blood smears from CBCs yielding IG's will be scanned manually for concor dance. If this scan disagrees with the automated IG or if promyelocytes are not ed, a manual differential will be performed. Melisa Gran Abs 0.03 0.00 - 0.04 x10(3)/[facility] MAR Y [facility] LABORATORY Specimen Anatomical Collection Method Collection Time Receive d Time (Source) Location / / Volume Laterality Blood specimen 08/14/2017 4:52 AM 018 5:08 (specimen) EST AM EST Resulting Agency Comment Spec In Lab Yonathan Smith MD HEMATOLOGY ORDERABLES Performing Organization Address City/State/ZIP [place] [address] (ABNORMAL) Hemogram (08/14/2017 4:52 AM EST) Analysis Performed At Patho logist Time Signature WBC 9.8 (H) 4.0 - 9.5 [facility] x10(3)/[facility] LABORATORY RBC 3.32 (L) 4.58 - [facility] 5.54 [facility] x10(6)/[facility] LABORATORY Hemoglobin 9.5 (L) 13.7 - [facility] 16.5 gm/dL [facility] LABORATORY Hematocrit 30.3 (L) 40.5 - [facility] 48.5 % [facility] LABORATORY MCV 91.3 82.9 - [facility] 93.1 [facility] LABORATORY MCH 28.6 27.5 - [facility] 32.1 pg [facility] LABORATORY MCHC 31.4 (L) 32.0 - [facility] 35.7 gm/dL [facility] LABORATORY Platelets 263 145 - 357 [facility] x10(3)/[facility] LABORATORY RDWSD 54.8 (H) 36.0 - [facility] 45.0 [facility] LABORATORY RDWCV 16.5 (H) 11.4 - [facility] 13.8 % [facility] LABORATORY MPV 9.1 7.6 - 12.9 [facility] LABORATORY nRBC % Auto 0.0 % [facility] LABORATORY nRBC Abs Auto 0.000 0.000 - [facility] 0.000 [facility] x10(3)/[facility] LABORATORY Specimen Anatomical Collection Method Collection Time Receive d Time (Source) Location / / Volume Laterality Blood specimen 08/14/2017 4:52 AM 018 5:08 (specimen) EST AM EST Resulting Agency Comment Spec In Lab Yonathan Smith MD HEMATOLOGY ORDERABLES Performing Organization Address City/State/ZIP [place] [address] (ABNORMAL) Prothrombin Time (08/14/2017 4:52 AM EST) P athologist Signature PT 18.8 (H) 11.8 - 14.0 [facility] LABORATORY INR 1.6 (H) 0.9 - 1.1 [facility] [...] Organization Address City/State/ZIP Code Phon e Number [place] [phone] [address] Drive (ABNORMAL) Basic Metabolic Panel (non-fasting) (08/14/2017 4:52 AM EST) athologist Signature Glucose Lvl 135 65 - 199 [facility] mg/dL [facility] LABORATORY Comment: Diabetes: >=200 mg/dL plus symp toms BUN 25 (H) 10 - 20 mg/dL [facility] LABORATORY Creatinine 1.36 0.80 - 1.50 mg/dL [facility] LABORATORY Sodium 141 135 - 145 mmol/L [facility] LABORATORY Potassium 4.8 3.5 - 5.0 mmol/L [facility] LABORATORY Comment: Please note: ??Patients with WBC >100,00 0 may have falsely elevated Potassium levels. ??For accurate Potassium quantif ication in these patients send serum separator tube (gold top) for subsequent determinations. ??Contact the Clinical Chemistry Laboratory if there are any qu estions. Chloride 100 98 - 107 mmol/L [facility] LABORATORY CO2 28 22 - 31 mmol/L [facility] LABORATORY Anion Gap 13 5 - 15 mmol/L [facility] LABORATORY Calcium 8.5 8.5 - 10.5 mg/dL [facility] LABORATORY Estimated GFR 52 (L) >=60 [facility] LABORATORY Comment: The reported eGFR should be multiplied b y 1.2 for patients. The MDRD is not an appropriate measure o f renal function for patients with body mass extremes or in patients with acute kidney failure. http://[facility]/DHnkdep http://[facility]/DHMCnkf Specimen Anatomical Collection Method Collection Time Receive d Time (Source) Location / / Volume Laterality Blood specimen 08/14/2017 4:52 AM 018 5:08 (specimen) EST AM EST Resulting Agency Comment Spec In Lab Yonathan Smith MD CHEMISTRY ORDERABLES Performing Organization Address City/[facility]/ZIP [facility] Phon e Number [address] POCT Glucose (08/14/2017 3:56 AM EST) athologist Signature POC Glucose 135 65 - 199 [facility]dL [facility] LABORATORY Comment: Supplemental ranges: <140 mg/dL before meals <180 mg/dL all other times of the day Specimen Anatomical Collection Method Collection Time Receive d Time (Source) Location / / Volume Laterality Blood specimen 08/14/2017 3:56 AM 018 3:56 (specimen) EST AM EST Yonathan Smith MD POINT OF CARE TEST ORDERABLE S Performing Organization Address City/[facility]/ZIP Code Phon e Number [address] POCT Glucose (08/13/2017 11:13 PM EST) athologist Signature POC Glucose 118 65 - 199 [facility] LABORATORY Comment: Supplemental ranges: <140 mg/dL before meals <180 mg/dL all other times of the day Specimen Anatomical Collection Method Collection Time Receive d Time (Source) Location / / Volume Laterality Blood specimen 08/13/2017 11:13 8 (specimen) PM EST 11:13 PM EST Yonathan Smith MD POINT OF CARE TEST ORDERABLE S Performing Organization Address City/[facility]/ZIP [place] [address] (ABNORMAL) POCT Glucose (08/13/2017 8:08 PM EST) athologist Signature POC Glucose 204 (H) 65 - 199 [facility] RYAN mg/dL [facility] LABORATORY Comment: Supplemental ranges: <140 mg/dL before meals <180 mg/dL all other times of the day Specimen Anatomical Collection Method Collection Time Receive d Time (Source) Location / / Volume Laterality Blood specimen 08/13/2017 8:08 PM 018 8:08 (specimen) EST PM EST Yonathan Smith MD POINT OF CARE TEST ORDERABLE S Performing Organization Address City/State/ZIP [place] [address] POCT Glucose (08/13/2017 4:02 PM EST) athologist Signature POC Glucose 145 65 - 199 [facility] mg/dL [facility] LABORATORY Comment: Supplemental ranges: <140 mg/dL before meals <180 mg/dL all other times of the day Specimen Anatomical Collection Method Collection Time Receive d Time (Source) Location / / Volume Laterality Blood specimen 08/13/2017 4:02 PM 018 4:02 (specimen) EST PM EST Yonathan Smith MD POINT OF CARE TEST ORDERABLE S Performing Organization Address City/State/ZIP [place] [address] POCT Glucose (08/13/2017 11:31 AM EST) athologist Signature POC Glucose 179 65 - 199 [place] mg/dL [facility] LABORATORY Comment: Supplemental ranges: <140 mg/dL before meals <180 mg/dL all other times of the day Specimen Anatomical Collection Method Collection Time Receive d Time (Source) Location / / Volume Laterality Blood specimen 08/13/2017 11:31 8 (specimen) AM EST 11:31 AM EST Yonathan Smith MD POINT OF CARE TEST ORDERABLE S Performing Organization Address City/State/ZIP [place] [address] (ABNORMAL) POCT Glucose (08/13/2017 10:16 AM EST) P athologist Signature POC Glucose 211 (H) 65 - 199 [facility] mg/dL [facility] LABORATORY Comment: Supplemental ranges: <140 mg/dL before meals <180 mg/dL all other times of the day Specimen Anatomical Collection Method Collection Time Receive d Time (Source) Location / / Volume Laterality Blood specimen 08/13/2017 10:16 8 (specimen) AM EST 10:16 AM EST Yonathan Smith MD POINT OF CARE TEST ORDERABLE S Performing Organization Address City/State/ZIP [place] [address] JULIAN, legs, multiple levels (08/13/2017 7:42 AM EST) Component Value Ref Test Analysis Performed At Patholo gist Range Method Time Signature VB Text Department: Vascular Surgery Lab VASCUBASE Report Patient: [id number] (GREGORY HOANG) CPT: 87379 ICD10: I99.8 Referring Physician: YONATHAN SMITH ?? Indications: s/p R 1,2,3 toe amps with red left foot, need n ew baseline Diabetes mellitus: yes ICD10 Diagnosis Code: I99.8 Findings: Right ?Pressure (mm Hg) ?? JULIAN ??Waveform ?TBI ?? Brachial Artery ?138 ? Dorsalis Pedis (Ankle) Arter y ?132 ? 0.94 ??[place]- Biphasic ? Posterior Tibial (Ankle) Art anila ??154 ? 1.10 ??[place]-Biphasic ? Fourth Toe ? 67 ? 0.48 [...] Signature POC Glucose 156 65 - 199 [facility] mg/dL [facility] LABORATORY Comment: Supplemental ranges: <140 mg/dL before meals <180 mg/dL all other times of the day Specimen Anatomical Collection Method Collection Time Receive d Time (Source) Location / / Volume Laterality Blood specimen 08/13/2017 7:33 AM 018 7:33 (specimen) EST AM EST Yontahan Smith MD POINT OF CARE TEST ORDERABLE S Performing Organization Address City/State/ZIP [place] [address] (ABNORMAL) Differential, Automated (08/13/2017 5:33 AM EST) Patholo gist Method Time Signature Neutrophils % 77.8 % [facility] LABORATORY Neutr Abs (ANC) 7.83 (H) 1.70 - [facility] 6.10 [facility] x10(3)/[facility] L LABORATORY Lymphocytes % 8.4 % [facility] LABORATORY Lymphocytes Abs 0.8 (L) 0.9 - 3.2 [facility] x10(3)/[facility] LABORATORY Monocytes % 8.3 % [facility] LABORATORY Monocyte Abs 0.8 0.3 - 0.9 [facility] x10(3)/[facility] LABORATORY Eosinophils % 4.6 % [facility] LABORATORY Eosinophils Abs 0.5 (H) 0.0 - 0.4 [facility] x10(3)/[facility] LABORATORY Basophils % 0.5 % [facility] LABORATORY Basophils Abs 0.0 0.0 - 0.1 [facility] x10(3)/[facility] LABORATORY Immature Gran % 0.40 % [facility] LABORATORY Comment: Immature granulocytes(IG's)percentage an d absolute count will include metamyelocytes, myelocytes, and promyelo cytes. Blood smears from CBCs yielding IG's will be scanned manually for concor dance. If this scan disagrees with the automated IG or if promyelocytes are not ed, a manual differential will be performed. Melisa Gran Abs 0.04 0.00 - 0.04 x10(3)/[facility] MAR Y [facility] LABORATORY Specimen Anatomical Collection Method Collection Time Receive d Time (Source) Location / / Volume Laterality Blood specimen 08/13/2017 5:33 AM 018 6:04 (specimen) EST AM EST Resulting Agency Comment Spec In Lab Yonathan Smith MD HEMATOLOGY ORDERABLES Performing Organization Address City/State/ZIP [place] [address] (ABNORMAL) Hemogram (08/13/2017 5:33 AM EST) Analysis Performed At Patho logist Time Signature WBC 10.1 (H) 4.0 - 9.5 [facility] x10(3)/[facility] LABORATORY RBC 3.21 (L) 4.58 - [facility] 5.54 [facility] x10(6)/[facility] LABORATORY Hemoglobin 9.2 (L) 13.7 - [facility] 16.[facility] gm/dL [facility] LABORATORY Hematocrit 29.6 (L) 40.5 - [facility] 48.5 % [facility] LABORATORY MCV 92.2 82.9 - [facility] 93.1 fL [facility] LABORATORY MCH 28.7 27.5 - [facility] 32.1 pg [facility] LABORATORY MCHC 31.1 (L) 32.0 - [place] RYAN 35.7 gm/dL [facility] LABORATORY Platelets 263 145 - 357 [facility] x[facility](3[facility] LABORATORY RDWSD 54.8 (H) 36.0 - [place] DAVIS 45.0 [facility] LABORATORY RDWCV 16.4 (H) 11.4 - [facility] RYAN 13.8 % [facility] LABORATORY MPV 9.2 7.6 - 12.9 [facility] LABORATORY nRBC % Auto 0.0 % [facility] LABORATORY nRBC Abs Auto 0.000 0.000 - [place] DAVIS 0.000 [facility] x10(3)/[facility] LABORATORY Specimen Anatomical Collection Method Collection Time Receive d Time (Source) Location / / Volume Laterality Blood specimen 08/13/2017 5:33 AM 018 6:04 (specimen) EST AM EST Resulting Agency Comment Spec In Lab Yonathan Smith MD HEMATOLOGY ORDERABLES Performing Organization Address City/[facility]/ZIP [place] [address] (ABNORMAL) Prothrombin Time (08/13/2017 5:33 AM EST) P athologist Signature PT 17.3 (H) 11.8 - 14.0 [facility] LABORATORY INR 1.4 (H) 0.9 - 1.1 [facility] [...] ORDERABLES Performing Organization Address City/[facility]/ZIP [place] [address] (ABNORMAL) Basic Metabolic Panel (non-fasting) (08/13/2017 5:33 AM EST) athologist Signature Glucose Lvl 126 65 - 199 [facility] mg/dL [facility] LABORATORY Comment: Diabetes: >=200 mg/dL plus symp toms BUN 18 10 - 20 mg/dL [facility] LABORATORY Creatinine 1.16 0.80 - 1.50 mg/dL [facility] LABORATORY [...] estions. Chloride 100 98 - 107 mmol/L [facility] LABORATORY CO2 29 22 - 31 mmol/L [facility] LABORATORY Anion Gap 12 5 - 15 mmol/L [facility] LABORATORY Calcium 7.9 (L) 8.5 - 10.5 mg/dL [facility] LABORATORY Estimated GFR >60 >=60 [facility] LABORATORY Comment: The reported eGFR should be multiplied b y 1.2 for patients. The MDRD is not an appropriate measure o f renal function for patients with body mass extremes or in patients with acute kidney failure. http://[employer]/DHnkdep http://[employer]/DHMCnkf Specimen Anatomical Collection Method Collection Time Receive d Time (Source) Location / / Volume Laterality Blood specimen 08/13/2017 5:33 AM 018 6:04 (specimen) EST AM EST Resulting Agency Comment Spec In Lab Yonathan Smith MD CHEMISTRY ORDERABLES Performing Organization Address City/State/ZIP [place] [address] POCT Glucose (08/13/2017 4:29 AM EST) athologist Signature POC Glucose 111 65 - 199 [place] [facility] mg/dL [facility] LABORATORY Comment: Supplemental ranges: <140 mg/dL before meals <180 mg/dL all other times of the day Specimen Anatomical Collection Method Collection Time Receive d Time (Source) Location / / Volume Laterality Blood specimen 08/13/2017 4:29 AM 018 4:29 (specimen) EST AM EST Yonathan Smith MD POINT OF CARE TEST ORDERABLE S Performing Organization Address City/State/ZIP [place] [address] POCT Glucose (08/12/2017 11:28 PM EST) athologist Signature POC Glucose 164 65 - 199 [facility] mg/dL [facility] LABORATORY Comment: Supplemental ranges: <140 mg/dL before meals <180 mg/dL all other times of the day Specimen Anatomical Collection Method Collection Time Receive d Time (Source) Location / / Volume Laterality Blood specimen 08/12/2017 11:28 8 (specimen) PM EST 11:28 PM EST Yonathan Smith MD POINT OF CARE TEST ORDERABLE S Performing Organization Address City/State/Z[place] [address] (ABNORMAL) POCT Glucose (08/12/2017 7:40 PM EST) athologist Signature POC Glucose 209 (H) 65 - 199 [facility] mg/dL [facility] LABORATORY Comment: Supplemental ranges: <140 mg/dL before meals <180 mg/dL all other times of the day Specimen Anatomical Collection Method Collection Time Receive d Time (Source) Location / / Volume Laterality Blood specimen 08/12/2017 7:40 PM 018 7:40 (specimen) EST PM EST Yonathan Smith MD POINT OF CARE TEST ORDERABLE S Performing Organization Address City/State/ZIP Code Phon e Number [address] POCT Glucose (08/12/2017 4:24 PM EST) athologist Signature POC Glucose 161 65 - 199 [facility] mg/dL [facility] LABORATORY Comment: Supplemental ranges: <140 mg/dL before meals <180 mg/dL all other times of the day Specimen Anatomical Collection Method Collection Time Receive d Time (Source) Location / / Volume Laterality Blood specimen 08/12/2017 4:24 PM 018 4:24 (specimen) EST PM EST Yonathan Smith MD POINT OF CARE TEST ORDERABLE S Performing Organization Address City/State/ZIP Code Phon e Number [address] POCT Glucose (08/12/2017 12:00 PM EST) athologist Signature POC Glucose 167 65 - 199 [facility]dL [facility] LABORATORY Comment: Supplemental ranges: <140 mg/dL before meals <180 mg/dL all other times of the day Specimen Anatomical Collection Method Collection Time Receive d Time (Source) Location / / Volume Laterality Blood specimen 08/12/2017 12:00 8 (specimen) PM EST 12:00 PM EST Yonathan Smith MD POINT OF CARE TEST ORDERABLE S Performing Organization Address City/State/ZIP Code Phon e Number [address] POCT Glucose (08/12/2017 7:25 AM EST) athologist Signature POC Glucose 152 65 - 199 [facility]/dL [facility] LABORATORY Comment: Supplemental ranges: <140 mg/dL before meals <180 mg/dL all other times of the day Specimen Anatomical Collection Method Collection Time Receive d Time (Source) Location / / Volume Laterality Blood specimen 08/12/2017 7:25 AM 018 7:25 (specimen) EST AM EST Yonathan Smith MD POINT OF CARE TEST ORDERABLE S Performing Organization Address City/State/ZIP Code Phon e Number [address] (ABNORMAL) Differential, Automated (08/12/2017 6:29 AM EST) Patholo gist Method Time Signature Neutrophils % 78.7 % [facility] LABORATORY Neutr Abs (ANC) 7.94 (H) 1.70 - [facility] 6.10 [facility] x10(3)/[facility] L LABORATORY Lymphocytes % 8.8 % [facility] LABORATORY Lymphocytes Abs 0.9 0.9 - 3.2 [facility] x10(3)/[facility] LABORATORY Monocytes % 7.8 % [facility] LABORATORY Monocyte Abs 0.8 0.3 - 0.9 [facility] x10(3)/[facility] LABORATORY Eosinophils % 3.9 % [facility] LABORATORY Eosinophils Abs 0.4 0.0 - 0.4 [facility] x10(3)/[facility] LABORATORY Basophils % 0.3 % [facility] LABORATORY Basophils Abs 0.0 0.0 - 0.1 [facility] x10(3)/[facility] LABORATORY Immature Gran % 0.50 % [facility] LABORATORY Comment: Immature [...] Organization Address City/State/ZIP [place] [address] (ABNORMAL) Hemogram (08/12/2017 6:29 AM EST) Analysis Performed At Patho logist Time Signature WBC 10.1 (H) 4.0 - 9.5 [facility] x10(3)/[facility] LABORATORY RBC 3.02 (L) 4.58 - [facility] 5.54 [facility] x10(6)/[facility] LABORATORY Hemoglobin 8.7 (L) 13.7 - [facility] 16.5 gm/dL [facility] LABORATORY Hematocrit 28.1 (L) 40.5 - [place] RYAN 48.5 % [facility] LABORATORY MCV 93.0 82.9 - [facility] 93.1 [facility] LABORATORY MCH 28.8 27.5 - [facility] 32.1 pg [facility] LABORATORY MCHC 31.0 (L) 32.0 - [facility] 35.7 gm/dL [facility] LABORATORY Platelets 223 145 - 357 [facility] x10(3)/[facility] LABORATORY RDWSD 56.1 (H) 36.0 - [place] RYAN 45.0 [facility] LABORATORY RDWCV 16.4 (H) 11.4 - [facility] RYAN 13.8 % [facility] LABORATORY MPV 9.0 7.6 - 12.9 [facility] LABORATORY nRBC % Auto 0.0 % [facility] LABORATORY nRBC Abs Auto 0.000 0.000 - [facility] RYAN 0.000 [facility] x10(3)/[facility] LABORATORY Specimen Anatomical Collection Method Collection Time Receive d Time (Source) Location / / Volume Laterality Blood specimen 08/12/2017 6:29 AM 018 6:38 (specimen) EST AM EST Resulting Agency Comment Spec In Lab Yonathan Smith MD HEMATOLOGY ORDERABLES Performing Organization Address City/State/ZIP [place] [address] (ABNORMAL) Prothrombin Time (08/12/2017 6:29 AM EST) P athologist Signature PT 16.1 (H) 11.8 - 14.0 [facility] LABORATORY INR 1.3 (H) 0.9 - 1.1 [facility] [...] Organization Address City/State/ZIP [place] [address] (ABNORMAL) Basic Metabolic Panel (non-fasting) (08/12/2017 6:29 AM EST) athologist Signature Glucose Lvl 151 65 - 199 [facility] mg/dL [facility] LABORATORY Comment: Diabetes: >=200 mg/dL plus symp toms BUN 18 10 - 20 mg/dL [facility] LABORATORY Creatinine 1.11 0.80 - 1.50 mg/dL [facility] LABORATORY Sodium 138 135 - 145 mmol/L [facility] [...] estions. Chloride 99 98 - 107 mmol/L [facility] LABORATORY CO2 28 22 - 31 mmol/L [facility] LABORATORY Anion Gap 11 5 - 15 mmol/L [facility] LABORATORY Calcium 7.9 (L) 8.5 - 10.5 mg/dL [facility] LABORATORY Estimated GFR >60 >=60 [facility] LABORATORY Comment: The reported eGFR should be multiplied b y 1.2 for patients. The MDRD is not an appropriate measure o f renal function for patients with body mass extremes or in patients with acute kidney failure. http://[employer]/DHnkdep http://[employer] [facility]/DHMCnkf Specimen Anatomical Collection Method Collection Time Receive d Time (Source) Location / / Volume Laterality Blood specimen 08/12/2017 6:29 AM 018 6:38 (specimen) EST AM EST Resulting Agency Comment Spec In Lab Yonathan Smith MD CHEMISTRY ORDERABLES Performing Organization Address City/State/ZIP Code Phon e Number [address] POCT Glucose (08/12/2017 4:08 AM EST) P athologist Signature POC Glucose 181 65 - 199 [facility]/dL [facility] LABORATORY Comment: Supplemental ranges: <140 mg/dL before meals <180 mg/dL all other times of the day Specimen Anatomical Collection Method Collection Time Receive d Time (Source) Location / / Volume Laterality Blood specimen 08/12/2017 4:08 AM 018 4:08 (specimen) EST AM EST Yonathan Smith MD POINT OF CARE TEST ORDERABLE S Performing Organization Address City/[facility]/ZIP [place] [address] (ABNORMAL) POCT Glucose (08/12/2017 12:17 AM EST) P athologist Signature POC Glucose 221 (H) 65 - 199 [facility] mg/dL [facility] LABORATORY Comment: Supplemental ranges: <140 mg/dL before meals <180 mg/dL all other times of the day Specimen Anatomical Collection Method Collection Time Receive d Time (Source) Location / / Volume Laterality Blood specimen 08/12/2017 12:17 8 (specimen) AM EST 12:17 AM EST Yonathan Smith MD POINT OF CARE TEST ORDERABLE S Performing Organization Address City/State/ZIP [place] [address] (ABNORMAL) POCT Glucose (08/11/2017 8:52 PM EST) P athologist Signature POC Glucose 221 (H) 65 - 199 [facility] mg/dL [facility] LABORATORY Comment: Supplemental ranges: <140 mg/dL before meals <180 mg/dL all other times of the day Specimen Anatomical Collection Method Collection Time Receive d Time (Source) Location / / Volume Laterality Blood specimen 08/11/2017 8:52 PM 018 8:52 (specimen) EST PM EST Yonathan Smith MD POINT OF CARE TEST ORDERABLE S Performing Organization Address City/[facility]/ZIP [place] [address] POCT Glucose (08/11/2017 5:59 PM EST) athologist Signature POC Glucose 169 65 - 199 [place] mg/dL [facility] LABORATORY Comment: Supplemental ranges: <140 mg/dL before meals <180 mg/dL all other times of the day Specimen Anatomical Collection Method Collection Time Receive d Time (Source) Location / / Volume Laterality Blood specimen 08/11/2017 5:59 PM 018 5:59 (specimen) EST PM EST Yonathan Smith MD POINT OF CARE TEST ORDERABLE S Performing Organization Address City/[facility]/ZIP [place] [address] (ABNORMAL) POCT Glucose (08/11/2017 4:08 PM EST) athologist Signature POC Glucose 240 (H) 65 - 199 [place] [facility] mg/dL [facility] LABORATORY Comment: Supplemental ranges: <140 mg/dL before meals <180 mg/dL all other times of the day Specimen Anatomical Collection Method Collection Time Receive d Time (Source) Location / / Volume Laterality Blood specimen 08/11/2017 4:08 PM 018 4:08 (specimen) EST PM EST Yonathan Smith MD POINT OF CARE TEST ORDERABLE S Performing Organization Address City/[facility]/ZIP [place] [address] POCT Glucose (08/11/2017 12:04 PM EST) athologist Signature POC Glucose 182 65 - 199 [place] mg/dL [facility] LABORATORY Comment: Supplemental ranges: <140 mg/dL before meals <180 mg/dL all other times of the day Specimen Anatomical Collection Method Collection Time Receive d Time (Source) Location / / Volume Laterality Blood specimen 08/11/2017 12:04 8 (specimen) PM EST 12:04 PM EST Yonathan Smith MD POINT OF CARE TEST ORDERABLE S Performing Organization Address City/State/ZIP Code Phon e Number [address] POCT Glucose (08/11/2017 7:31 AM EST) P athologist Signature POC Glucose 156 65 - 199 [facility] mg/dL [facility] LABORATORY Comment: Supplemental ranges: <140 mg/dL before meals <180 mg/dL all other times of the day Specimen Anatomical Collection Method Collection Time Receive d Time (Source) Location / / Volume Laterality Blood specimen 08/11/2017 7:31 AM 018 7:31 (specimen) EST AM EST Yonathan Smith MD POINT OF CARE TEST ORDERABLE S Performing Organization Address City/State/ZIP Code Phon e Number [address] (ABNORMAL) Differential, Automated (08/11/2017 6:16 AM EST) Patholo gist Method Time Signature Neutrophils % 83.7 % [facility] LABORATORY Neutr Abs (ANC) 10.76 (H) 1.70 - [facility] 6.10 [facility] x10(3)/[facility] LABORATORY Lymphocytes % 6.0 % [facility] LABORATORY Lymphocytes Abs 0.8 (L) 0.9 - 3.2 [facility] x10(3)/[facility] LABORATORY Monocytes % 7.5 % [facility] LABORATORY Monocyte Abs 1.0 (H) 0.3 - 0.9 [facility] x10(3)/[facility] LABORATORY Eosinophils % 2.0 % [facility] LABORATORY Eosinophils Abs 0.3 0.0 - 0.4 [facility] x10(3)/[facility] LABORATORY Basophils % 0.3 % [facility] LABORATORY Basophils Abs 0.0 0.0 - 0.1 [facility] x10(3)/[facility] LABORATORY Immature Gran % 0.50 % [facility] LABORATORY Comment: Immature granulocytes(IG's)percentage an d absolute count will include metamyelocytes, myelocytes, and promyelo cytes. Blood smears from CBCs yielding IG's will be scanned manually for concor dance. If this scan disagrees with the automated IG or if promyelocytes are not ed, a manual differential will be performed. Melisa Gran Abs 0.06 (H) 0.00 - 0.04 x10(3)/[facility] LABORATORY Specimen Anatomical Collection Method Collection Time Receive d Time (Source) Location / / Volume Laterality Blood specimen 08/11/2017 6:16 AM 018 6:24 (specimen) EST AM EST Resulting Agency Comment Spec In Lab Yonathan Smith MD HEMATOLOGY ORDERABLES Performing Organization Address City/State/ZIP [place] [address] (ABNORMAL) Hemogram (08/11/2017 6:16 AM EST) Analysis Performed At Patho logist Time Signature WBC 12.9 (H) 4.0 - 9.5 [facility] x10(3)/[facility] LABORATORY RBC 3.28 (L) 4.58 - [facility] 5.54 [facility] x10(6)/[facility] LABORATORY Hemoglobin 9.5 (L) 13.7 - [facility]/dL [facility] LABORATORY Hematocrit 29.8 (L) 40.5 - [facility] 48.5 % [facility] LABORATORY MCV 90.9 82.9 - [facility] 93.1 [facility] LABORATORY MCH 29.0 27.5 - [facility] RYAN 32.1 pg [facility] LABORATORY MCHC 31.9 (L) 32.0 - [facility] 35.7 gm/dL [facility] LABORATORY Platelets 236 145 - 357 [facility] x10(3)/[facility] LABORATORY RDWSD 53.5 (H) 36.0 - [facility] RYAN 45.0 [facility] LABORATORY RDWCV 16.3 (H) 11.4 - [facility] R[facility]AN 13.8 % [facility] LABORATORY MPV 8.8 7.6 - 12.9 [facility] LABORATORY nRBC % Auto 0.0 % [facility] LABORATORY nRBC Abs Auto 0.000 0.000 - [facility] 0.000 [facility] x10(3)/[facility] LABORATORY Specimen Anatomical Collection Method Collection Time Receive d Time (Source) Location / / Volume Laterality Blood specimen 08/11/2017 6:16 AM 018 6:24 (specimen) EST AM EST Resulting Agency Comment Spec In Lab Yonatahn Smith MD HEMATOLOGY ORDERABLES Performing Organization Address City/[facility]/ZIP [place] [address] (ABNORMAL) Prothrombin Time (08/11/2017 6:16 AM EST) athologist Signature PT 15.5 (H) 11.8 - 14.0 [facility] LABORATORY INR 1.3 (H) 0.9 - 1.1 [facility] [...] ORDERABLES Performing Organization Address City/[facility]/ZIP [place] [address] Basic Metabolic Panel (non-fasting) (08/11/2017 6:16 AM EST) athologist Signature Glucose Lvl 139 65 - 199 [facility] mg/dL [facility] LABORATORY Comment: Diabetes: >=200 mg/dL plus symp toms BUN 12 10 - 20 mg/dL [facility] LABORATORY Creatinine 0.91 0.80 - 1.50 mg/dL [facility] LABORATORY Sodium 138 135 - 145 mmol/L [facility] [...] estions. Chloride 98 98 - 107 mmol/L [facility] LABORATORY CO2 27 22 - 31 mmol/L [facility] LABORATORY Anion Gap 13 5 - 15 mmol/L [facility] LABORATORY Calcium 8.5 8.5 - 10.5 mg/dL [facility] LABORATORY Estimated GFR >60 >=60 [facility] LABORATORY Comment: The reported eGFR should be multiplied b y 1.2 for patients. The MDRD is not an appropriate measure o f renal function for patients with body mass extremes or in patients with acute kidney failure. http://[employer]/DHnkdep http://[employer] [facility]/DHMCnkf Specimen Anatomical Collection Method Collection Time Receive d Time (Source) Location / / Volume Laterality Blood specimen 08/11/2017 6:16 AM 018 6:24 (specimen) EST AM EST Resulting Agency Comment Spec In Lab Yonathan Smith MD CHEMISTRY ORDERABLES Performing Organization Address City/[facility]/ZIP Code Phon e Number [address] POCT Glucose (08/11/2017 4:07 AM EST) P athologist Signature POC Glucose 162 65 - 199 [facility] mg/dL [facility] LABORATORY Comment: Supplemental ranges: <140 mg/dL before meals <180 mg/dL all other times of the day Specimen Anatomical Collection Method Collection Time Receive d Time (Source) Location / / Volume Laterality Blood specimen 08/11/2017 4:07 AM 018 4:07 (specimen) EST AM EST Yonathan Smith MD POINT OF CARE TEST ORDERABLE S Performing Organization Address City/[facility]/ZIP [place] [address] POCT Glucose (08/10/2017 11:59 PM EST) athologist Signature POC Glucose 166 65 - 199 [facility]/dL [facility] LABORATORY Comment: Supplemental ranges: <140 mg/dL before meals <180 mg/dL all other times of the day Specimen Anatomical Collection Method Collection Time Receive d Time (Source) Location / / Volume Laterality Blood specimen 08/10/2017 11:59 8 (specimen) PM EST 11:59 PM EST Yonathan Smith MD POINT OF CARE TEST ORDERABLE S Performing Organization Address City/State/ZIP [place] [address] POCT Glucose (08/10/2017 8:12 PM EST) athologist Signature POC Glucose 156 65 - 199 [facility] mg/dL [facility] LABORATORY Comment: Supplemental ranges: <140 mg/dL before meals <180 mg/dL all other times of the day Specimen Anatomical Collection Method Collection Time Receive d Time (Source) Location / / Volume Laterality Blood specimen 08/10/2017 8:12 PM 018 8:12 (specimen) EST PM EST Yonathan Smith MD POINT OF CARE TEST ORDERABLE S Performing Organization Address City/[facility]/ZIP [place] [address] (ABNORMAL) POCT Glucose (08/10/2017 4:42 PM EST) athologist Signature POC Glucose 211 (H) 65 - 199 [facility] mg/dL [facility] LABORATORY Comment: Supplemental ranges: <140 mg/dL before meals <180 mg/dL all other times of the day Specimen Anatomical Collection Method Collection Time Receive d Time (Source) Location / / Volume Laterality Blood specimen 08/10/2017 4:42 PM 018 4:42 (specimen) EST PM EST Yonathan Smith MD POINT OF CARE TEST ORDERABLE S Performing Organization Address City/State/Z[place] [address] (ABNORMAL) Differential, Automated (08/10/2017 2:30 PM EST) Patholo gist Method Time Signature Neutrophils % 87.6 % [facility] LABORATORY Neutr Abs (ANC) 9.90 (H) 1.70 - [facility] 6.10 [facility] x10(3)/[facility] LABORATORY Lymphocytes % 4.3 % [facility] LABORATORY Lymphocytes Abs 0.5 (L) 0.9 - 3.2 [facility] x10(3)/[facility] LABORATORY Monocytes % 6.0 % [facility] LABORATORY Monocyte Abs 0.7 0.3 - 0.9 [facility] x10(3)/[facility] LABORATORY Eosinophils % 1.1 % [facility] LABORATORY Eosinophils Abs 0.1 0.0 - 0.4 [facility] x10(3)/[facility] LABORATORY Basophils % 0.4 % [facility] LABORATORY Basophils Abs 0.0 0.0 - 0.1 [facility] x10(3)/[facility] LABORATORY Immature Gran % 0.60 % ST [...] Organization Address City/State/ZIP [place] [address] (ABNORMAL) Hemogram (08/10/2017 2:30 PM EST) Analysis Performed At [facility] logist Time Signature WBC 11.3 (H) 4.0 - 9.5 [facility] x10(3)/[facility] LABORATORY RBC 3.13 (L) 4.58 - [place] 5.54 [facility] x10(6)/[facility] LABORATORY Hemoglobin 8.9 (L) 13.7 - [place] 16.5 gm/dL [facility] LABORATORY Hematocrit 28.4 (L) 40.5 - [place] 48.5 % [facility] LABORATORY MCV 90.7 82.9 - [facility]1 [facility] LABORATORY MCH 28.4 27.5 - [place] 32.1 pg [facility] LABORATORY MCHC 31.3 (L) 32.0 - [place] 35.7 gm/dL [facility] LABORATORY Platelets 213 145 - 357 [place] x10(3)/[facility] LABORATORY RDWSD 53.7 (H) 36.0 - [place] RYAN 45.0 [facility] LABORATORY RDWCV 16.4 (H) 11.4 - [facility] 13.8 % [facility] LABORATORY MPV 8.9 7.6 - 12.9 [facility] LABORATORY nRBC % Auto 0.0 % [facility] LABORATORY nRBC Abs Auto 0.000 0.000 - [place] RYAN 0.000 [facility] x10(3)/[facility] LABORATORY Specimen Anatomical Collection Method Collection Time Receive d Time (Source) Location / / Volume Laterality Blood specimen 08/10/2017 2:30 PM 018 2:48 (specimen) EST PM EST Resulting Agency Comment Spec In Lab Yonathan Smith MD HEMATOLOGY ORDERABLES Performing Organization Address City/State/ZIP [place] [address] (ABNORMAL) POCT Glucose (08/10/2017 1:50 PM EST) P athologist Signature POC Glucose 243 (H) 65 - 199 [facility] mg/dL [facility] LABORATORY Comment: Supplemental ranges: <140 mg/dL before meals <180 mg/dL all other times of the day Specimen Anatomical Collection Method Collection Time Receive d Time (Source) Location / / Volume Laterality Blood specimen 08/10/2017 1:50 PM 018 1:50 (specimen) EST PM EST Yonathan Smith MD POINT OF CARE TEST ORDERABLE S Performing Organization Address City/State/ZIP Code Phon e Number [address] POCT Glucose (08/10/2017 11:21 AM EST) P athologist Signature POC Glucose 156 65 - 199 [facility] LABORATORY Comment: Supplemental ranges: <140 mg/dL before meals <180 mg/dL all other times of the day Specimen Anatomical Collection Method Collection Time Receive d Time (Source) Location / / Volume Laterality Blood specimen 08/10/2017 11:21 8 (specimen) AM EST 11:21 AM EST Yonathan Smith MD POINT OF CARE TEST ORDERABLE S Performing Organization Address City/State/ZIP Code Phon e Number [address] (ABNORMAL) Differential, Automated (08/10/2017 10:28 AM EST) [facility] gist Method Time Signature Neutrophils % 85.3 % [facility] LABORATORY Neutr Abs (ANC) 9.43 (H) 1.70 - [facility] 6.10 [facility] x10(3)/[facility] L LABORATORY Lymphocytes % 5.5 % [facility] LABORATORY Lymphocytes Abs 0.6 (L) 0.9 - 3.2 [facility] x10(3)/[facility] LABORATORY Monocytes % 5.9 % [facility] LABORATORY Monocyte Abs 0.6 0.3 - 0.9 [facility] x10(3)/[facility] LABORATORY Eosinophils % 2.1 % [facility] LABORATORY Eosinophils Abs 0.2 0.0 - 0.4 [facility] x10(3)/[facility] LABORATORY Basophils % 0.4 % [facility] LABORATORY Basophils Abs 0.0 0.0 - 0.1 [facility] x10(3)/[facility] LABORATORY Immature Gran % 0.80 % [facility] LABORATORY Comment: Immature granulocytes(IG's)percentage an d absolute count will include metamyelocytes, myelocytes, and promyelo cytes. Blood smears from CBCs yielding IG's will be scanned manually for concor dance. If this scan disagrees with the automated IG or if promyelocytes are not ed, a manual differential will be performed. Melisa Gran Abs 0.09 (H) 0.00 - 0.04 x10(3)/[facility] LABORATORY Specimen Anatomical Collection Method Collection Time Receive d Time (Source) Location / / Volume Laterality Blood specimen 08/10/2017 10:28 8 (specimen) AM EST 10:35 AM EST Resulting Agency Comment Spec In Lab Yonathan Smith MD HEMATOLOGY ORDERABLES Performing Organization Address City/State/ZIP [place] [address] (ABNORMAL) Hemogram (08/10/2017 10:28 AM EST) Analysis Performed At Patho logist Time Signature WBC 11.0 (H) 4.0 - 9.5 [facility] x10(3)/[facility] LABORATORY RBC 3.02 (L) 4.58 - [facility] Link[employer] 5.54 [facility] x10(6)/[facility] LABORATORY Hemoglobin 8.8 (L) 13.7 - [facility] gm/dL [facility] LABORATORY Hematocrit 28.1 (L) 40.5 - [facility] 48.5 % [facility] LABORATORY MCV 93.0 82.9 - [facility] 93.1 [facility] LABORATORY MCH 29.1 27.5 - [facility] RYAN 32.1 pg [facility] LABORATORY MCHC 31.3 (L) 32.0 - [facility] 35.7 gm/dL [facility] LABORATORY Platelets 207 145 - 357 [facility] x10(3)/[facility] LABORATORY RDWSD 55.3 (H) 36.0 - [facility] RYAN 45.0 [facility] LABORATORY RDWCV 16.4 (H) 11.4 - [facility] RYAN 13.8 % [facility] LABORATORY MPV 9.0 7.6 - 12.9 [facility] LABORATORY nRBC % Auto 0.0 % [facility] LABORATORY nRBC Abs Auto 0.000 0.000 - [place] DAVIS 0.000 [facility] x10(3)/[facility] LABORATORY Specimen Anatomical Collection Method Collection Time Receive d Time (Source) Location / / Volume Laterality Blood specimen 08/10/2017 10:28 8 (specimen) AM EST 10:35 AM EST Resulting Agency Comment Spec In Lab Yonathan Smith MD HEMATOLOGY ORDERABLES Performing Organization Address City/State/ZIP Code Phon [place] [address] VS Angiogram/intervention (vascular) (08/10/2017 [...] 5. Completion RLE angiogram 6. L [employer] angiogram 7. 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 L [employer] access in the distal L [employer]ICER. - Closure device: Mynx Technical Procedure: ?The [...] for a 45cm 5F Destination. V18 and Greig a nd QuickCross catheters were used to [...] Access appeared in the distal R [employer]ICER. Closure and sheath removal was performed with [...] 5. Completion RLE angiogram 6. L [employer]ICER angiogram 7. 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 L [employer]ER access in the distal L [employer]IL SERVICER. - Closure device: Mynx Technical Procedure: The [...] for a 45cm 5F Destination. V18 and Greig a nd QuickCross catheters were used to [...] Access appeared in the distal R [employer]ICER. Closure and sheath removal was performed with [...] (ABNORMAL) Differential, Automated (08/10/2017 5:50 AM EST) [facility] Method Time Signature Neutrophils % 80.1 % [facility] LABORATORY Neutr Abs (ANC) 9.01 (H) 1.70 - [facility] 6.10 [facility] x10(3)/[facility] LABORATORY Lymphocytes % 8.8 % [facility] LABORATORY Lymphocytes Abs 1.0 0.9 - 3.2 [facility] x10(3)/[facility] LABORATORY Monocytes % 8.3 % [facility] LABORATORY Monocyte Abs 0.9 0.3 - 0.9 [facility] x10(3)/[facility] LABORATORY Eosinophils % 2.0 % [facility] LABORATORY Eosinophils Abs 0.2 0.0 - 0.4 [facility] x10(3)/[facility] LABORATORY Basophils % 0.4 % [facility] LABORATORY Basophils Abs 0.0 0.0 - 0.1 [facility] x10(3)/[facility] LABORATORY Immature Gran % 0.40 % [facility] LABORATORY Comment: Immature [...] Organization Address City/State/ZIP [place] [address] (ABNORMAL) Hemogram (08/10/2017 5:50 AM EST) Analysis Performed At Patho logist Time Signature WBC 11.3 (H) 4.0 - 9.5 [place] x10(3)/[facility] LABORATORY RBC 3.15 (L) 4.58 - [place] RYAN 5.54 [facility] x10(6)/[facility] LABORATORY Hemoglobin 8.9 (L) 13.7 - [facility] 16[facility] gm/dL [facility] LABORATORY Hematocrit 29.0 (L) 40.5 - [facility] 48.5 % [facility] LABORATORY MCV 92.1 82.9 - [facility] 93[facility]1 [facility] LABORATORY MCH 28.3 27.5 - BARBARA RYAN 32.1 pg [facility] LABORATORY MCHC 30.7 (L) 32.0 - [place] RYAN 35.7 gm/dL [facility] LABORATORY Platelets 231 145 - 357 [facility] x10(3)/[facility] LABORATORY RDWSD 53.9 (H) 36.0 - [place] RYAN 45.0 [facility] LABORATORY RDWCV 16.2 (H) 11.4 - [facility] RYAN 13.8 % [facility] LABORATORY MPV 8.7 7.6 - 12.9 [facility] LABORATORY nRBC % Auto 0.0 % [facility] LABORATORY nRBC Abs Auto 0.000 0.000 - [place] RYAN 0.000 [facility] x10(3)/[facility] LABORATORY Specimen Anatomical Collection Method Collection Time Receive d Time (Source) Location / / Volume Laterality Blood specimen 08/10/2017 5:50 AM 018 5:59 (specimen) EST AM EST Resulting Agency Comment Spec In Lab Yonathan Smith MD HEMATOLOGY ORDERABLES Performing Organization Address City/State/ZIP [place] [address] (ABNORMAL) Basic Metabolic Panel (non-fasting) (08/10/2017 5:50 AM EST) P athologist Signature Glucose Lvl 135 65 - 199 [facility] mg/dL [facility] LABORATORY Comment: Diabetes: >=200 mg/dL plus symp toms BUN 17 10 - 20 mg/dL [facility] LABORATORY Creatinine 1.05 0.80 - 1.50 mg/dL [facility] LABORATORY Sodium 144 135 - 145 [...] estions. Chloride 104 98 - 107 mmol/L [facility] LABORATORY CO2 27 22 - 31 mmol/L [facility] LABORATORY Anion Gap 13 5 - 15 mmol/L [facility] LABORATORY Calcium 8.1 (L) 8.5 - 10.5 mg/dL [facility] LABORATORY Estimated GFR >60 >=60 [facility] LABORATORY Comment: The reported eGFR should be multiplied b y 1.2 for patients. The MDRD is not an appropriate measure o f renal function for patients with body mass extremes or in patients with acute kidney failure. http://[employer]/DHnkdep http://[employer]/DHMCnkf Specimen Anatomical Collection Method Collection Time Receive d Time (Source) Location / / Volume Laterality Blood specimen 08/10/2017 5:50 AM 018 5:59 (specimen) EST AM EST Resulting Agency Comment Spec In Lab Yonathan Smith MD CHEMISTRY ORDERABLES Performing Organization Address City/State/ZIP [place] [address] (ABNORMAL) Prothrombin Time (08/10/2017 5:50 AM EST) athologist Signature PT 16.8 (H) 11.8 - 14.0 [facility] LABORATORY INR 1.4 (H) 0.9 - 1.1 [facility] [...] ORDERABLES Performing Organization Address City/[facility]/ZIP Code Phon e Number [address] (ABNORMAL) POCT Glucose (08/10/2017 4:01 AM EST) athologist Signature POC Glucose 206 (H) 65 - 199 [facility] mg/dL [facility] LABORATORY Comment: Supplemental ranges: <140 mg/dL before meals <180 mg/dL all other times of the day Specimen Anatomical Collection Method Collection Time Receive d Time (Source) Location / / Volume Laterality Blood specimen 08/10/2017 4:01 AM 018 4:01 (specimen) EST AM EST Yonathan Smith MD POINT OF CARE TEST ORDERABLE S Performing Organization Address City/[facility]/ZIP Code Phon e Number [address] POCT Glucose (08/10/2017 2:01 AM EST) athologist Signature POC Glucose 188 65 - 199 [facility] mg/dL [facility] LABORATORY Comment: Supplemental ranges: <140 mg/dL before meals <180 mg/dL all other times of the day Specimen Anatomical Collection Method Collection Time Receive d Time (Source) Location / / Volume Laterality Blood specimen 08/10/2017 2:01 AM 018 2:01 (specimen) EST AM EST Yonathan Smith MD POINT OF CARE TEST ORDERABLE S Performing Organization Address City/[facility]/ZIP Code Phon e Number [address] (ABNORMAL) POCT Glucose (08/09/2017 11:42 PM EST) athologist Signature POC Glucose 283 (H) 65 - 199 [facility] mg/dL [facility] LABORATORY Comment: Supplemental ranges: <140 mg/dL before meals <180 mg/dL all other times of the day Specimen Anatomical Collection Method Collection Time Receive d Time (Source) Location / / Volume Laterality Blood specimen 08/09/2017 11:42 8 (specimen) PM EST 11:42 PM EST Yonathan Smith MD POINT OF CARE TEST ORDERABLE S Performing Organization Address City/State/ZIP Code Phon e Number [address] POCT Glucose (08/09/2017 8:55 PM EST) athologist Signature POC Glucose 182 65 - 199 [facility] mg/dL [facility] LABORATORY Comment: Supplemental ranges: <140 mg/dL before meals <180 mg/dL all other times of the day Specimen Anatomical Collection Method Collection Time Receive d Time (Source) Location / / Volume Laterality Blood specimen 08/09/2017 8:55 PM 018 8:55 (specimen) EST PM EST Yonathan Smith MD POINT OF CARE TEST ORDERABLE S Performing Organization Address City/State/[place] [address] (ABNORMAL) APTT (08/09/2017 6:42 PM EST) athologist Signature PTT 90 (H) 25 - [address] [facility] LABORATORY Comment: The recommended therapeutic range for fu ll dose, unfractionated heparin at [facility] is 80 ? 114 seconds. The use [...] Address City/State/ZIP Code Phon e Number [address] POCT Glucose (08/09/2017 4:41 PM EST) athologist Signature POC Glucose 195 65 - 199 [place] ZHAORYAN mg/dL [facility] LABORATORY Comment: Supplemental ranges: <140 mg/dL before meals <180 mg/dL all other times of the day Specimen Anatomical Collection Method Collection Time Receive d Time (Source) Location / / Volume Laterality Blood specimen 08/09/2017 4:41 PM 018 4:41 (specimen) EST PM EST Yonathan Smith MD POINT OF CARE TEST ORDERABLE S Performing Organization Address City/[facility]/ZIP Code Phon e Number [place] [address] POCT Glucose (08/09/2017 12:29 PM EST) athologist Signature POC Glucose 140 65 - 199 [place] ZHAORYAN mg/dL [facility] LABORATORY Comment: Supplemental ranges: <140 mg/dL before meals <180 mg/dL all other times of the day Specimen Anatomical Collection Method Collection Time Receive d Time (Source) Location / / Volume Laterality Blood specimen 08/09/2017 12:29 8 (specimen) PM EST 12:29 PM EST Yonathan Smith MD POINT OF CARE TEST ORDERABLE S Performing Organization Address City/[facility]/ZIP Code Phon e Number [place] RY[place] [address] POCT Glucose (08/09/2017 9:59 AM EST) athologist Signature POC Glucose 135 65 - 199 [place] ZHA[place] mg/dL [facility] LABORATORY Comment: Supplemental ranges: <140 mg/dL before meals <180 mg/dL all other times of the day Specimen Anatomical Collection Method Collection Time Receive d Time (Source) Location / / Volume Laterality Blood specimen 08/09/2017 9:59 AM 018 9:59 (specimen) EST AM EST Yonathan Smiht MD POINT OF CARE TEST ORDERABLE S Performing Organization Address City/State/ZIP [place] [address] [facility] LAB[address] Drive Specimen to Pathology (08/09/2017 8:41 AM EST) Specimen Anatomical Collection Method Collection Time Receive d Time (Source) Location / / Volume Laterality AP Specimen 08/09/2017 8:41 AM 8 8:41 EST AM EST [address] [facility] LABORAT ORY - 08/09/2017 8:41 AM EST Specimen requisition ordered. ??Separate Pathology report to follow Yonathan Smith MD PATHOLOGY/CYTOLOGY ORDERABLE S Performing Organization Address City/State/ZIP [place] [address] [facility] LABOR[address]ORY Drive Surgical Pathology Report (08/09/2017 8:40 AM EST) Component Value Ref Test Analysis Performed At [facility] gist Range Method Time Signature Surgical [id number] ? Location: [facility]; [facility]; A [facility] Report The signing pathologist has (i) examined the relevant preparation(s) for the [facility] specimen(s) and (ii) rendered or confirmed the diagnosis(es) . HOSPITAL LABORATORY . 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 ?Viable proximal resection margins. Electronically signed by: ??Henrique Saravia MD Verified: ??08/13/2017 ?Pathologist Performed at: ??-[facility] Dept. of Pathology, [place], [place] CLINICAL INFORMATION Specimen Submitted: A - [...] Organization Address City/State/Z[place] [address] Anaerobic Culture (08/09/2017 8:30 AM EST) [facility] Time Signature Anaerobic No anaerobic [facility] Culture organisms [facility] LABORATORY Specimen Anatomical Collection Method [...] Organization Address City/State/ZIP [place] [address] (ABNORMAL) Abscess/Wound Aspirate Culture (08/09/2017 8:30 AM EST) Hive guard unlimited Method Time Signature Abscess/Wound Moderate mixed [facility] Aspirate bacterial RYAN Culture morphotypes [facility] normal LABORATORY cutaneous leroy (A) Gram Stain Rare White Blood Cells [facility] Few Gram Positive Cocci in pairs [place] (A) [facility] LABORATORY Organism Gram Positive BARBARA Cocci in pairs [place] (A) [facility] LABORATORY Specimen Anatomical Collection Method [...] GENERAL ORDER ROBSON Performing Organization Address City/[facility]/ZIP Code Phon e Number [address] POCT Glucose (08/09/2017 4:28 AM EST) P athologist Signature POC Glucose 128 65 - 199 [facility] mg/dL [facility] LABORATORY Comment: Supplemental ranges: <140 mg/dL before meals <180 mg/dL all other times of the day Specimen Anatomical Collection Method Collection Time Receive d Time (Source) Location / / Volume Laterality Blood specimen 08/09/2017 4:28 AM 018 4:28 (specimen) EST AM EST Yonathan Smith MD POINT OF CARE TEST ORDERABLE S Performing Organization Address City/[facility]/ZIP Code Phon e Number [address] ABORH Recheck Status (08/09/2017 1:10 AM EST) [facility] [employer] Method Time Signature ABORH Type Completed [facility] LABORATORY Specimen Anatomical Collection Method Collection Time Receive d Time (Source) Location / / Volume Laterality Blood specimen 08/09/2017 1:10 AM 018 1:35 (specimen) EST AM EST Resulting Agency Comment Spec In Lab Yonathan Smith MD BLOOD BANK ORDERABLES Performing Organization Address City/[facility]/ZIP Code Phon e Number [address] Antibody screen (08/09/2017 1:10 AM EST) [facility] [employer] Method Time Signature Ab Screen Negative [facility] LABORATORY Ex[facility] at 08[facility]12/2017 [id number] on: [facility] LABORATORY Specimen Anatomical Collection Method Collection Time Receive d Time (Source) Location / / Volume Laterality Blood specimen 08/09/2017 1:10 AM 018 1:35 (specimen) EST AM EST Resulting Agency Comment Spec In Lab Yonathan Smith MD BLOOD BANK ORDERABLES Performing Organization Address City/[facility]/ZIP Code Phon e Number [address] ABO/Rh Typing (08/09/2017 1:10 AM EST) P athologist Signature ABORh Type O Pos [facility] Specimen Anatomical Collection Method Collection Time Receive d Time (Source) Location / / Volume Laterality Blood specimen 08/09/2017 1:10 AM 018 1:35 (specimen) EST AM EST Resulting Agency Comment Spec In Lab Yonathan Smith MD BLOOD BANK ORDERABLES Performing Organization Address [place]/[facility] Phon e Number [address] (ABNORMAL) APTT (08/09/2017 1:10 AM EST) P athologist Signature PTT 86 (H) 25 - [address] [facility] LABORATORY Comment: The recommended therapeutic range for fu ll dose, unfractionated heparin at [facility] is 80 ? 114 seconds. The use [...] ORDERABLES Performing Organization Address City/[facility] Phon e Number [address] (ABNORMAL) Differential, Automated (08/09/2017 1:10 AM EST) Patholo gist Method Time Signature Neutrophils % 76.2 % [facility] LABORATORY Neutr Abs (ANC) 8.59 (H) 1.70 - [facility] 6.10 [facility] x10(3)/[facility] LABORATORY Lymphocytes % 11.0 % [facility] LABORATORY Lymphocytes Abs 1.2 0.9 - 3.2 [facility] x10(3)/[facility] LABORATORY Monocytes % 8.4 % [facility] LABORATORY Monocyte Abs 1.0 (H) 0.3 - 0.9 [facility] x10(3)/[facility] LABORATORY Eosinophils % 3.5 % [facility] LABORATORY Eosinophils Abs 0.4 0.0 - 0.4 [facility] x10(3)/[facility] LABORATORY Basophils % 0.5 % [facility] LABORATORY Basophils Abs 0.1 0.0 - 0.1 [facility] x10(3)/[facility] LABORATORY Immature Gran % 0.40 % [facility] LABORATORY Comment: Immature [...] Organization Address City/State/ZIP [place] [address] (ABNORMAL) Hemogram (08/09/2017 1:10 AM EST) Analysis Performed At Patho logist Time Signature WBC 11.3 (H) 4.0 - 9.5 [facility] HOSPITAL x10(3)/[facility] LABORATORY RBC 3.47 (L) 4.58 - [facility] 5.54 [facility] x10(6)/[facility] LABORATORY Hemoglobin 10.0 (L) 13.7 - [facility] gm/dL [facility] LABORATORY Hematocrit 31.9 (L) 40.5 - [facility] 48.5 % [facility] LABORATORY MCV 91.9 82.9 - [facility]1 [facility] LABORATORY MCH 28.8 27.5 - [place] 32.1 pg [facility] LABORATORY MCHC 31.3 (L) 32.0 - [facility] RYAN 35.7 gm/dL [facility] LABORATORY Platelets 234 145 - 357 [facility] x10(3)/[facility] LABORATORY RDWSD 54.0 (H) 36.0 - [facility] RYAN 45.0 [facility] LABORATORY RDWCV 16.2 (H) 11.4 - [facility] 13.8 % [facility] LABORATORY MPV 8.7 7.6 - 12.9 [facility] LABORATORY nRBC % Auto 0.0 % [facility] LABORATORY nRBC Abs Auto 0.000 0.000 - [facility] 0[facility]000 [facility] x10(3)/[facility] LABORATORY Specimen Anatomical Collection Method Collection Time Receive d Time (Source) Location / / Volume Laterality Blood specimen 08/09/2017 1:10 AM 018 1:19 (specimen) EST AM EST Resulting Agency Comment Spec In Lab Yonathan Smith MD HEMATOLOGY ORDERABLES Performing Organization Address City/State/ZIP [place] [address] (ABNORMAL) Prothrombin Time (08/09/2017 1:10 AM EST) P athologist Signature PT 16.0 (H) 11.8 - 14.0 [facility] LABORATORY INR 1.3 (H) 0.9 - 1.1 [facility] [...] Organization Address City/State/ZIP [place] [address] (ABNORMAL) Basic Metabolic Panel (non-fasting) (08/09/2017 1:10 AM EST) athologist Signature Glucose Lvl 108 65 - 199 [facility] mg/dL [facility] LABORATORY Comment: Diabetes: >=200 mg/dL plus symp toms BUN 34 (H) 10 - 20 mg/dL [facility] LABORATORY Creatinine 1.54 (H) 0.80 - 1.50 mg/dL [facility] LABORATORY Sodium 138 135 - 145 mmol/L [facility] [...] Chloride 96 (L) 98 - 107 mmol/L [facility] LABORATORY CO2 29 22 - 31 mmol/L [facility] LABORATORY Anion Gap 13 5 - 15 mmol/L [facility] LABORATORY Calcium 8.3 (L) 8.5 - 10.5 mg/dL [facility] LABORATORY Estimated GFR 45 (L) >=60 [facility] LABORATORY Comment: The reported eGFR should be multiplied b y 1.2 for patients. The MDRD is not an appropriate measure o f renal function for patients with body mass extremes or in patients with acute kidney failure. http://[employer]/DHnkdep http://[employer]/DHMCnkf Specimen Anatomical Collection Method Collection Time Receive d Time (Source) Location / / Volume Laterality Blood specimen 08/09/2017 1:10 AM 018 1:19 (specimen) EST AM EST Resulting Agency Comment Spec In Lab Yonathan Smith MD CHEMISTRY ORDERABLES Performing Organization Address City/State/ZIP [place] [address] POCT Glucose (08/09/2017 12:05 AM EST) athologist Signature POC Glucose 128 65 - 199 [place] [facility] mg/dL [facility] LABORATORY Comment: Supplemental ranges: <140 mg/dL before meals <180 mg/dL all other times of the day Specimen Anatomical Collection Method Collection Time Receive d Time (Source) Location / / Volume Laterality Blood specimen 08/09/2017 12:05 8 (specimen) AM EST 12:05 AM EST Yonathan Smith MD POINT OF CARE TEST ORDERABLE S Performing Organization Address City/[facility]/ZIP [place] [address] (ABNORMAL) POCT Glucose (08/08/2017 7:36 PM EST) athologist Signature POC Glucose 215 (H) 65 - 199 [place] [facility] mg/dL [facility] LABORATORY Comment: Supplemental ranges: <140 mg/dL before meals <180 mg/dL all other times of the day Specimen Anatomical Collection Method Collection Time Receive d Time (Source) Location / / Volume Laterality Blood specimen 08/08/2017 7:36 PM 018 7:36 (specimen) EST PM EST Yonathan Smith MD POINT OF CARE TEST ORDERABLE S Performing Organization Address City/State/ZIP [place] [address] (ABNORMAL) POCT Glucose (08/08/2017 6:23 PM EST) athologist Signature POC Glucose 216 (H) 65 - 199 [place] [facility] mg/dL [facility] LABORATORY Comment: Supplemental ranges: <140 mg/dL before meals <180 mg/dL all other times of the day Specimen Anatomical Collection Method Collection Time Receive d Time (Source) Location / / Volume Laterality Blood specimen 08/08/2017 6:23 PM 018 6:23 (specimen) EST PM EST Yonathan Smith MD POINT OF CARE TEST ORDERABLE S Performing Organization Address City/State/ZIP [place] [address] (ABNORMAL) APTT (08/08/2017 6:00 PM EST) athologist Signature PTT 97 (H) 25 - [address] [facility] LABORATORY Comment: The recommended therapeutic range for fu ll dose, unfractionated heparin at [facility] is 80 ? 114 seconds. The use [...] Organization Address City/State/Z[place] [address] POCT Glucose (08/08/2017 4:42 PM EST) athologist Signature POC Glucose 78 65 - 199 [facility] mg/dL [facility] LABORATORY Comment: Supplemental ranges: <140 mg/dL before meals <180 mg/dL all other times of the day Specimen Anatomical Collection Method Collection Time Receive d Time (Source) Location / / Volume Laterality Blood specimen 08/08/2017 4:42 PM 018 4:42 (specimen) EST PM EST Yonathan Smith MD POINT OF CARE TEST ORDERABLE S Performing Organization Address City/[facility]/ZIP [place] [address] (ABNORMAL) POCT Glucose (08/08/2017 4:01 PM EST) athologist Signature POC Glucose 58 (L) 65 - 199 [facility] LABORATORY Comment: Supplemental ranges: <140 mg/dL before meals <180 mg/dL all other times of the day Specimen Anatomical Collection Method Collection Time Receive d Time (Source) Location / / Volume Laterality Blood specimen 08/08/2017 4:01 PM 018 4:01 (specimen) EST PM EST Yonathan Smith MD POINT OF CARE TEST ORDERABLE S Performing Organization Address City/[facility]/ZIP Code Phon e Number [address] POCT Glucose (08/08/2017 11:51 AM EST) P athologist Signature POC Glucose 90 65 - 199 [facility]dL [facility] LABORATORY Comment: Supplemental ranges: <140 mg/dL before meals <180 mg/dL all other times of the day Specimen Anatomical Collection Method Collection Time Receive d Time (Source) Location / / Volume Laterality Blood specimen 08/08/2017 11:51 8 (specimen) AM EST 11:51 AM EST Yonathan Smith MD POINT OF CARE TEST ORDERABLE S Performing Organization Address City/[facility]/ZIP [place] [address] (ABNORMAL) APTT (08/08/2017 10:27 AM EST) P athologist Signature PTT 64 (H) 25 - [address] [facility] LABORATORY Comment: The recommended therapeutic range for fu ll dose, unfractionated heparin at [facility] is 80 ? 114 seconds. The use [...] ORDERABLES Performing Organization Address City/[facility]/ZIP Code Phon e Number [address] POCT Glucose (08/08/2017 8:02 AM EST) athologist Signature POC Glucose 178 65 - 199 [facility] mg/dL [facility] LABORATORY Comment: Supplemental ranges: <140 mg/dL before meals <180 mg/dL all other times of the day Specimen Anatomical Collection Method Collection Time Receive d Time (Source) Location / / Volume Laterality Blood specimen 08/08/2017 8:02 AM 018 8:02 (specimen) EST AM EST Yonathan Smith MD POINT OF CARE TEST ORDERABLE S Performing Organization Address City/[facility]/ZIP [facility] [place] [address] (ABNORMAL) APTT (08/08/2017 4:51 AM EST) athologist Signature PTT >160 25 - 35 [facility] (Critical) sec [facility] LABORATORY Comment: Called by: HOWARD, Read back by: Melba Jaramillo, Date/Time:08/08/17 05:43. The recommended therapeutic range for fu ll dose, unfractionated heparin at [facility] is 80 ? 114 seconds. The use [...] ORDERABLES Performing Organization Address City/[facility]/ZIP [place] [address] (ABNORMAL) Differential, Automated (08/08/2017 4:51 AM EST) [facility] Method Time Signature Neutrophils % 77.9 % [facility] LABORATORY Neutr Abs (ANC) 8.17 (H) 1.70 - [facility] 6.10 [facility] x10(3)/[facility] LABORATORY Lymphocytes % 10.3 % [facility] LABORATORY Lymphocytes Abs 1.1 0.9 - 3.2 [facility] x10(3)/[facility] LABORATORY Monocytes % 7.0 % [facility] LABORATORY Monocyte Abs 0.7 0.3 - 0.9 [facility] x10(3)/[facility] LABORATORY Eosinophils % 3.6 % [facility] LABORATORY Eosinophils Abs 0.4 0.0 - 0.4 [facility] x10(3)/[facility] LABORATORY Basophils % 0.5 % [facility] LABORATORY Basophils Abs 0.0 0.0 - 0.1 [facility] x10(3)/[facility] LABORATORY Immature Gran % 0.70 % [facility] LABORATORY Comment: Immature [...] Organization Address City/State/ZIP [place] [address] (ABNORMAL) Hemogram (08/08/2017 4:51 AM EST) Analysis Performed At Patho logist Time Signature WBC 10.5 (H) 4.0 - 9.5 [facility] x10(3)/[facility] LABORATORY RBC 3.27 (L) 4.58 - [facility] 5.54 [facility] x10(6)/[facility] LABORATORY Hemoglobin 9.3 (L) 13.7 - [facility] 16.5 gm/dL [facility] LABORATORY Hematocrit 30.3 (L) 40.5 - [facility] 48.5 % [facility] LABORATORY MCV 92.7 82.9 - [facility] 93.1 [facility] LABORATORY MCH 28.4 27.5 - [facility]AN 32.1 pg [facility] LABORATORY MCHC 30.7 (L) 32.0 - [place] 35.7 gm/dL [facility] LABORATORY Platelets 252 145 - 357 [facility] x10(3)/[facility] LABORATORY RDWSD 54.6 (H) 36.0 - [facility] 45.0 [facility] LABORATORY RDWCV 16.2 (H) 11.4 - [facility] 13.8 % [facility] LABORATORY MPV 9.1 7.6 - 12.9 [facility] LABORATORY nRBC % Auto 0.0 % [facility] LABORATORY nRBC Abs Auto 0.000 0.000 - [facility] 0.000 [facility] x10(3)/[facility] LABORATORY Specimen Anatomical Collection Method Collection Time Receive d Time (Source) Location / / Volume Laterality Blood specimen 08/08/2017 4:51 AM 018 5:14 (specimen) EST AM EST Resulting Agency Comment Spec In Lab Yonathan Smith MD HEMATOLOGY ORDERABLES Performing Organization Address City/State/ZIP [place] [address] (ABNORMAL) Prothrombin Time (08/08/2017 4:51 AM EST) P athologist Signature PT 18.1 (H) 11.8 - 14.0 [facility] LABORATORY INR 1.5 (H) 0.9 - 1.1 [facility] [...] Organization Address City/State/ZIP [place] [address] (ABNORMAL) Basic Metabolic Panel (non-fasting) (08/08/2017 4:51 AM EST) athologist Signature Glucose Lvl 229 (H) 65 - 199 [facility] mg/dL [facility] LABORATORY Comment: Diabetes: >=200 mg/dL plus symp toms BUN 35 (H) 10 - 20 mg/dL [facility] LABORATORY Creatinine 1.57 (H) 0.80 - 1.50 mg/dL [facility] LABORATORY Sodium 136 135 - 145 mmol/L [facility] [...] Chloride 94 (L) 98 - 107 mmol/L [facility] LABORATORY CO2 25 22 - 31 mmol/L [facility] LABORATORY Anion Gap 17 (H) 5 - 15 mmol/L [facility] LABORATORY Calcium 7.9 (L) 8.5 - 10.5 mg/dL [facility] LABORATORY Estimated GFR 44 (L) >=60 [facility] LABORATORY Comment: The reported eGFR should be multiplied b y 1.2 for patients. The MDRD is not an appropriate measure o f renal function for patients with body mass extremes or in patients with acute kidney failure. http://[employer]/DHnkdep http://[employer]/DHMCnkf Specimen Anatomical Collection Method Collection Time Receive d Time (Source) Location / / Volume Laterality Blood specimen 08/08/2017 4:51 AM 018 5:14 (specimen) EST AM EST Resulting Agency Comment Spec In Lab Yonathan Smith MD CHEMISTRY ORDERABLES Performing Organization Address City/State/ZIP Code Phon e Number [address] POCT Glucose (08/08/2017 4:20 AM EST) athologist Signature POC Glucose 193 65 - 199 [facility]/dL [facility] LABORATORY Comment: Supplemental ranges: <140 mg/dL before meals <180 mg/dL all other times of the day Specimen Anatomical Collection Method Collection Time Receive d Time (Source) Location / / Volume Laterality Blood specimen 08/08/2017 4:20 AM 018 4:20 (specimen) EST AM EST Yonathan Smith MD POINT OF CARE TEST ORDERABLE S Performing Organization Address City/[facility]/ZIP Code Phon e Number [address] POCT Glucose (08/07/2017 11:11 PM EST) athologist Signature POC Glucose 124 65 - 199 [facility] mg/dL [facility] LABORATORY Comment: Supplemental ranges: <140 mg/dL before meals <180 mg/dL all other times of the day Specimen Anatomical Collection Method Collection Time Receive d Time (Source) Location / / Volume Laterality Blood specimen 08/07/2017 11:11 8 (specimen) PM EST 11:11 PM EST Yonathan Smith MD POINT OF CARE TEST ORDERABLE S Performing Organization Address City/State/Z[place] [address] (ABNORMAL) APTT (08/07/2017 10:18 PM EST) athologist Signature PTT 114 (H) 25 - [address] [facility] LABORATORY Comment: The recommended therapeutic range for fu ll dose, unfractionated heparin at [facility] is 80 ? 114 seconds. The use [...] ORDERABLES Performing Organization Address City/[facility]/ZIP Code Phon e Number [address] POCT Glucose (08/07/2017 8:10 PM EST) athologist Signature POC Glucose 140 65 - 199 [facility] mg/dL [facility] LABORATORY Comment: Supplemental ranges: <140 mg/dL before meals <180 mg/dL all other times of the day Specimen Anatomical Collection Method Collection Time Receive d Time (Source) Location / / Volume Laterality Blood specimen 08/07/2017 8:10 PM 018 8:10 (specimen) EST PM EST Yonathan Smith MD POINT OF CARE TEST ORDERABLE S Performing Organization Address City/[facility]/ZIP Code Phon e Number [address] POCT Glucose (08/07/2017 5:27 PM EST) athologist Signature POC Glucose 187 65 - 199 [facility] mg/dL [facility] LABORATORY Comment: Supplemental ranges: <140 mg/dL before meals <180 mg/dL all other times of the day Specimen Anatomical Collection Method Collection Time Receive d Time (Source) Location / / Volume Laterality Blood specimen 08/07/2017 5:27 PM 018 5:27 (specimen) EST PM EST Yonathan Smith MD POINT OF CARE TEST ORDERABLE S Performing Organization Address City/[facility]/ZIP Code Phon e Number [address] POCT Glucose (08/07/2017 3:29 PM EST) athologist Signature POC Glucose 86 65 - 199 [place] mg/dL [facility] LABORATORY Comment: Supplemental ranges: <140 mg/dL before meals <180 mg/dL all other times of the day Specimen Anatomical Collection Method Collection Time Receive d Time (Source) Location / / Volume Laterality Blood specimen 08/07/2017 3:29 PM 018 3:29 (specimen) EST PM EST Yonathan Smith MD POINT OF CARE TEST ORDERABLE S Performing Organization Address City/[facility]/ZIP [place] [address] (ABNORMAL) APTT (08/07/2017 2:50 PM EST) athologist Signature PTT 60 (H) 25 - [address] [facility] LABORATORY Comment: The recommended therapeutic range for fu ll dose, unfractionated heparin at [facility] is 80 ? 114 seconds. The use [...] ORDERABLES Performing Organization Address City/[facility]/ZIP [place] [address] (ABNORMAL) POCT Glucose (08/07/2017 2:23 PM EST) athologist Signature POC Glucose 55 (L) 65 - 199 [facility] LABORATORY Comment: Supplemental ranges: <140 mg/dL before meals <180 mg/dL all other times of the day Specimen Anatomical Collection Method Collection Time Receive d Time (Source) Location / / Volume Laterality Blood specimen 08/07/2017 2:23 PM 018 2:23 (specimen) EST PM EST Yonathan Smith MD POINT OF CARE TEST ORDERABLE S Performing Organization Address City/[facility]/ZIP Code Phon e Number [address] POCT Glucose (08/07/2017 12:08 PM EST) athologist Signature POC Glucose 77 65 - 199 [facility] mg/dL [facility] LABORATORY Comment: Supplemental ranges: <140 mg/dL before meals <180 mg/dL all other times of the day Specimen Anatomical Collection Method Collection Time Receive d Time (Source) Location / / Volume Laterality Blood specimen 08/07/2017 12:08 8 (specimen) PM EST 12:08 PM EST Yonathan Smith MD POINT OF CARE TEST ORDERABLE S Performing Organization Address City/State/ZIP [place] [address] (ABNORMAL) Differential, Automated (08/07/2017 7:30 AM EST) [facility] Method Time Signature Neutrophils % 73.8 % [facility] LABORATORY Neutr Abs (ANC) 7.17 (H) 1.70 - [facility] 6.10 [facility] x10(3)/[facility] LABORATORY Lymphocytes % 12.2 % [facility] LABORATORY Lymphocytes Abs 1.2 0.9 - 3.2 [facility] x10(3)/[facility] LABORATORY Monocytes % 9.0 % [facility] LABORATORY Monocyte Abs 0.9 0.3 - 0.9 [facility] x10(3)/[facility] LABORATORY Eosinophils % 3.9 % [facility] LABORATORY Eosinophils Abs 0.4 0.0 - 0.4 [facility] x10(3)/[facility] LABORATORY Basophils % 0.6 % [facility] LABORATORY Basophils Abs 0.1 0.0 - 0.1 [facility] x10(3)/[facility] LABORATORY Immature Gran % 0.50 % [facility] LABORATORY Comment: Immature [...] Organization Address City/State/ZIP [place] [address] (ABNORMAL) Hemogram (08/07/2017 7:30 AM EST) Analysis Performed At Patho logist Time Signature WBC 9.7 (H) 4.0 - 9.5 [facility] LABORATORY RBC 3.54 (L) 4.58 - [facility] 5.54 [facility] x10(6)/[facility] LABORATORY Hemoglobin 9.9 (L) 13.7 - [facility] 16.5 gm/dL [facility] LABORATORY Hematocrit 32.3 (L) 40.5 - [facility] 48.5 % [facility] LABORATORY MCV 91.2 82.9 - [facility] 93.1 [facility] LABORATORY MCH 28.0 27.5 - [facility] 32.1 pg [facility] LABORATORY MCHC 30.7 (L) 32.0 - [facility] 35.7 gm/dL [facility] LABORATORY Platelets 312 145 - 357 [facility] x10(3)/[facility] LABORATORY RDWSD 53.2 (H) 36.0 - [facility] 45.0 [facility] LABORATORY RDWCV 16.0 (H) 11.4 - [facility] 13.8 % [facility] LABORATORY MPV 8.9 7.6 - 12.9 [facility] LABORATORY nRBC % Auto 0.0 % [facility] LABORATORY nRBC Abs Auto 0.000 0.000 - [facility] 0.000 [facility] x10(3)/[facility] LABORATORY Specimen Anatomical Collection Method Collection Time Receive d Time (Source) Location / / Volume Laterality Blood specimen 08/07/2017 7:30 AM 018 7:45 (specimen) EST AM EST Resulting Agency Comment Spec In Lab Yonathan Smith MD HEMATOLOGY ORDERABLES Performing Organization Address City/State/Z[place] [address] (ABNORMAL) Basic Metabolic Panel (non-fasting) (08/07/2017 7:30 AM EST) athologist Signature Glucose Lvl 80 65 - 199 [facility] mg/dL [facility] LABORATORY Comment: Diabetes: >=200 mg/dL plus symp toms BUN 31 (H) 10 - 20 mg/dL [facility] LABORATORY Creatinine 1.22 0.80 - 1.50 mg/dL [facility] LABORATORY Sodium 140 135 - 145 mmol/L [facility] estions. Chloride 99 98 - 107 mmol/L [facility] LABORATORY CO2 29 22 - 31 mmol/L [facility] LABORATORY Anion Gap 12 5 - 15 mmol/L [facility] LABORATORY Calcium 8.5 8.5 - 10.5 mg/dL [facility] LABORATORY Estimated GFR 59 (L) >=60 [facility] LABORATORY Comment: The reported eGFR should be multiplied b y 1.2 for patients. The MDRD is not an appropriate measure o f renal function for patients with body mass extremes or in patients with acute kidney failure. http://[employer]/DHnkdep http://[employer]/DHMCnkf Specimen Anatomical Collection Method Collection Time Receive d Time (Source) Location / / Volume Laterality Blood specimen 08/07/2017 7:30 AM 018 7:45 (specimen) EST AM EST Resulting Agency Comment Spec In Lab Yonathan Smith MD CHEMISTRY ORDERABLES Performing Organization Address City/State/ZIP [place] [address] POCT Glucose (08/07/2017 7:27 AM EST) athologist Signature POC Glucose 81 65 - 199 [facility] mg/dL [facility] LABORATORY Comment: Supplemental ranges: <140 mg/dL before meals <180 mg/dL all other times of the day Specimen Anatomical Collection Method Collection Time Receive d Time (Source) Location / / Volume Laterality Blood specimen 08/07/2017 7:27 AM 018 7:27 (specimen) EST AM EST Yonathan Smith MD POINT OF CARE TEST ORDERABLE S Performing Organization Address City/[facility]/ZIP Code Phon e Number [address] APTT (08/07/2017 7:04 AM EST) athologist Signature PTT 34 25 - [address] [facility] LABORATORY Comment: The recommended therapeutic range for fu ll dose, unfractionated heparin at [facility] is 80 ? 114 seconds. The use [...] ORDERABLES Performing Organization Address City/[facility]/ZIP [place] [address] (ABNORMAL) Prothrombin Time (08/07/2017 7:04 AM EST) athologist Signature PT 17.3 (H) 11.8 - 14.0 [facility] LABORATORY INR 1.4 (H) 0.9 - 1.1 [facility] [...] ORDERABLES Performing Organization Address City/[facility]/ZIP Code Phon e Number [address] POCT Glucose (08/07/2017 4:03 AM EST) athologist Signature POC Glucose 93 65 - 199 BARBARA ZHAORYAN mg/dL [facility] LABORATORY Comment: Supplemental ranges: <140 mg/dL before meals <180 mg/dL all other times of the day Specimen Anatomical Collection Method Collection Time Receive d Time (Source) Location / / Volume Laterality Blood specimen 08/07/2017 4:03 AM 018 4:03 (specimen) EST AM EST Yonathan Smith MD POINT OF CARE TEST ORDERABLE S Performing Organization Address City/[facility]/ZIP Code Phon e Number [address] POCT Glucose (08/07/2017 12:04 AM EST) athologist Signature POC Glucose 107 65 - 199 BARBARA RYAN mg/dL [facility] LABORATORY Comment: Supplemental ranges: <140 mg/dL before meals <180 mg/dL all other times of the day Specimen Anatomical Collection Method Collection Time Receive d Time (Source) Location / / Volume Laterality Blood specimen 08/07/2017 12:04 8 (specimen) AM EST 12:04 AM EST Yonathan Smith MD POINT OF CARE TEST ORDERABLE S Performing Organization Address City/[facility]/ZIP Code Phon e Number [address] POCT Glucose (08/06/2017 7:56 PM EST) athologist Signature POC Glucose 178 65 - 199 [facility] RYAN mg/dL [facility] LABORATORY Comment: Supplemental ranges: <140 mg/dL before meals <180 mg/dL all other times of the day Specimen Anatomical Collection Method Collection Time Receive d Time (Source) Location / / Volume Laterality Blood specimen 08/06/2017 7:56 PM 018 7:56 (specimen) EST PM EST Yonathan Smith MD POINT OF CARE TEST ORDERABLE S Performing Organization Address City/State/ZIP [place] [address] TcPO2 (08/06/2017 2:32 PM EST) Component Value Ref Test Analysis Performed At [facility] gist Range Method Time Signature VB Text Department: Vascular Surgery Lab VASCUBASE Report Patient: [id number] (GREGORY HOANG) CPT: 4761686 ICD10: I99.8 Referring Physician: YONATHAN SMITH ?? [...] 2) 0445 (Patch Removed - Provider: Henrique Makrs RN) 0445 (Patch Removed - Provider: Henrique [...]
Routine documented in this encounter Care Teams Wheel Blocker Relationship Specialty Start Date End Date Lovely Vicente MD PCP - General 04/16/[address] [place] [address] documented as of this encounter
--- OUTSIDE RECORDS SUMMARY | 2022-02-20 08:13 | XMS_ITS | Encounter Summary ---
:1945 Author Organization [facility] [place] [address] Care Team Providers Name Role Phone Loevly Vicente MD Primary Care Provider Reason for Visit Reason Comments Foot Ulcer WOUND CHECK Auth/Cert Specialty Diagnoses / Procedures Referred By Contact Refer red To Contact Diagnoses Critical lower limb ischemia CELLULITIS RT FOOT Procedures EMERGENCY Referral ID Status Reason Start Date Expiration Date Visits Requ ested Visits Authorized [id number] 1 1 Encounter Details Date Type Department Care Team Description 08/06/2017 [facility] [place] [facility] [address] [place] VASCULAR SURGERY [id number] [place] [address] [phone] Social History Tobacco Use Types Packs/Day Years [...] Smith MD - 08/06/2017 1:00 PM EST [facility] staff: 1. RIGHT leg CLI Interval Hx: [...] Visit Cardiology Vitaliy Nobles MD [facility] CARDIOLOGY [place], [place] [address] (Wo rk) documented as of this encounter Visit Diagnoses Diagnosis Critical lower limb ischemia Unspecified circulatory system disorder documented in this encounter Care Teams Ict Support Technicians Relationship Specialty Start Date End Date Lovely Vicente MD PCP - General 04/16/[address] [place] [address] documented as of this encounter
--- OUTSIDE RECORDS SUMMARY | 2022-02-20 08:13 | XMS_ITS | Encounter Summary ---
:1945 [place] [address] Care Team Providers Name Role Phone Lovely Vicente MD Primary Care Provider Encounter Details Date Type Department Care Team Description 08/06/2017 Orders Only Vascular Surgery at [facility] [place] APRN Ischemia of foot [facility] [place] [address] VASCULAR SURGERY [phone] [place], [place] [address] (Wo rk) Social History Tobacco [...] Vitaliy Nobles MD [facility] [address] [place], [place] [address] (Wo rk) documented as of [...] 444 ms MUSE SYSTEM (Bezet) Calculated P Argyle 44 degrees MUSE SYSTEM Calculated R Argyle -31 degrees MUSE SYSTEM Calculated T Argyle 106 degrees MUSE SYSTEM INTERPRETATION Normal sinus [...] Signature Prealbumin 19 (L) 20 - 40 [facility] LABORATORY Comment: Prealbumin levels are [...] Organization Address City/State/[place] [address] (ABNORMAL) Basic Metabolic Panel (non-fasting) (08/06/2017 12:32 PM EST) P athologist Signature Glucose Lvl 92 65 - 199 [facility] LABORATORY Comment: [...] Chloride 97 (L) 98 - 107 mmol/L [facility] LABORATORY CO2 25 22 - 31 mmol/L [facility] LABORATORY Anion Gap 16 (H) [...] or in patients with acute kidney failure. http://Shopzilla/DHnkdep http://Shopzilla/DHMCnkf Specimen Anatomical Collection Method Collection Time Receive d Time (Source) Location / / Volume Laterality Blood specimen 08/06/2017 12:32 8 1:15 (specimen) PM EST PM EST Resulting Agency Comment Spec In Lab Arik Clement MD CHEMISTRY ORDERABLES Performing Organization Address City/State/[place] [address] (ABNORMAL) Hemogram (08/06/2017 12:32 PM EST) Analysis Performed At Patho logist Time Signature WBC 11.8 (H) 4.0 - 9.5 [facility] x10(3)/[facility] LABORATORY RBC 3.49 (L) 4.58 - [facility] 5.54 [facility] x10(6)/[facility] LABORATORY Hemoglobin 9.9 (L) 13.7 - [facility] 16.5 gm/dL [facility] LABORATORY Hematocrit 32.0 (L) 40.5 - [facility] 48.5 % [facility] LABORATORY MCV 91.7 82.9 - [facility] 93.1 [facility] LABORATORY MCH 28.4 27.5 - [facility] 32.1 pg [facility] LABORATORY MCHC 30.9 (L) 32.0 - [facility] 35.7 gm/dL [facility] LABORATORY Platelets 326 145 - 357 [facility] x10(3)/[facility] LABORATORY RDWSD 53.4 (H) 36.0 - [facility] 45.0 [facility] LABORATORY RDWCV 16.0 (H) 11.4 - [facility] 13.8 % [facility] LABORATORY MPV 9.1 7.6 - 12.9 [facility] LABORATORY nRBC % Auto 0.0 % [facility] LABORATORY nRBC Abs Auto 0.000 0.000 - [facility] 0.000 [facility] x10(3)/[facility] LABORATORY Specimen Anatomical Collection Method Collection Time Receive d Time (Source) Location / / Volume Laterality Blood specimen 08/06/2017 12:32 8 1:15 (specimen) PM EST PM EST Resulting Agency Comment Spec In Lab Arik Clement MD HEMATOLOGY ORDERABLES Performing Organization Address City/State/[place] [address] documented in this encounter Visit Diagnoses Diagnosis Ischemia of foot Unspecified circulatory system disorder documented in this encounter Care Teams Propeller Mechanic Relationship Specialty Start Date End Date Lovely Vicente MD PCP - General 04/16/[address] [place] [address] documented as of this encounter
--- OUTSIDE RECORDS SUMMARY | 2022-02-20 08:14 | XMS_ITS | Encounter Summary ---
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 Patient [...] SETUP performed by Manny Mcknight MD at [facility] MAIN OR ??? PRO CABG, ARTERIAL, SINGLE N/A 07/07/2017 @CABG, USING ARTERIAL GRAFT;SINGLE ARTERIAL GRAFT (WRVU 33.75) performed by Yuan Retana MD at [facility] MAIN OR ??? PRO CABG, ARTERY-VEIN, TWO N/A 07/07/2017 @CABG, TWO VENOUS GRAFTS & ARTERIAL GRAFT (WRVU 7.93) performed by Yuan Retana MD at [facility] MAIN OR ??? PRO COLONOSCOPY, REMFlash MOCK, SNARE 01/16/2014 COLONOSCOPY, POLYPECTOMY, REMOVAL LESION BY SNARE performed by Nohemi Jaimes MD at [facility] ENDOSCOPY ??? PRO ENDOSCOPY W/VIDEO-ASST VEIN HARVEST, CABG Right 07/07/2017 ENDOSCOPIC HARVEST VEIN(S) FOR CABG (WRVU 0.31) performed by Yuan Retana MD at [facility] MAIN OR ??? 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 Hank Zhang Vascular Surgery, PGY2 Pager #[phone] Associated attestation - Arik Clement MD - [...] Care Team Description 03/26/2022 Office Visit Cardiology Vtialiy Nobles MD [facility] CARDIOLOGY [place], [place] [address] (Wo rk) documented as of [...] Component Value Ref Test Analysis Performed At [facility] Range Method Time Signature VB Text Department: Vascular Surgery Lab VASCUBASE Report Patient: [id number] (GRGEORY FATIMA) CPT: 35299 ICD10: I82.541 Referring Physician: TAMIKO JIMÉNEZ ?? [...] 199 [facility] mg/dL [facility] LABORATORY Comment: Supplemental ranges: <140 mg/dL before meals <180 mg/dL all other times of the day Specimen Anatomical Collection Method Collection Time Receive d Time (Source) Location / / Volume Laterality Blood specimen 07/29/2017 2:28 PM 018 2:28 (specimen) EST PM EST Tamiko Jiménez MD POINT OF CARE TEST ORDERABLE S Performing Organization Address City/[facility]/ZIP Code Phon e Number [place] [phone] (ABNORMAL) D-Dimer, Quantitative (07/29/2017 2:15 PM EST) [facility] VONTRAVEL Method Time Signature D-Dimer, Quant 1,699 (H) 0 - 500 [facility] FEU ng/ml [facility] LABORATORY Comment: The D-Dimer assay is used [...] Organization Address City/State/[place] [address] (ABNORMAL) Differential, Automated (07/29/2017 2:15 PM EST) [facility] Method Time Signature Neutrophils % 82.5 % [facility] LABORATORY Neutr Abs (ANC) 10.21 (H) 1.70 - [facility] 6.10 [facility] x10(3)/[facility] LABORATORY Lymphocytes % 7.1 % [facility] LABORATORY Lymphocytes Abs 0.9 0.9 - 3.2 [facility] x10(3)/[facility] LABORATORY Monocytes % 6.5 % [facility] LABORATORY Monocyte Abs 0.8 0.3 - 0.9 [facility] x10(3)/[facility] LABORATORY Eosinophils % 2.7 % [facility] LABORATORY Eosinophils Abs 0.3 0.0 - 0.4 [facility] x10(3)/[facility] LABORATORY Basophils % 0.6 % [facility] LABORATORY Basophils Abs 0.1 0.0 - 0.1 [facility] x10(3)/[facility] LABORATORY Immature Gran % 0.60 % [facility] [...] Organization Address City/State/ZIP Code Phon e Number [place] [id number] Drive (ABNORMAL) Hemogram (07/29/2017 2:15 PM EST) Analysis Performed At Patho logist Time Signature WBC 12.4 (H) 4.0 - 9.5 [facility] x10(3)/[facility] LABORATORY RBC 4.17 (L) 4.58 - [facility] 5.54 [facility] x10(6)/[facility] LABORATORY Hemoglobin 12.1 (L) 13.7 - [facility] 16.5 gm/dL [facility] LABORATORY Hematocrit 38.1 (L) 40.5 - [facility] 48.5 % [facility] LABORATORY MCV 91.4 82.9 - [facility] 93.1 [facility] LABORATORY MCH 29.0 27.5 - [facility] RYAN 32.1 pg [facility] LABORATORY MCHC 31.8 (L) 32.0 - [facility] 35.7 gm/dL [facility] LABORATORY Platelets 204 145 - 357 [facility] x10(3)/[facility] LABORATORY RDWSD 50.5 (H) 36.0 - [facility] 45.0 [facility] LABORATORY RDWCV 15.3 (H) 11.4 - [facility] RYAN 13.8 % [facility] LABORATORY MPV 9.4 7.6 - 12.9 [facility] LABORATORY nRBC % Auto 0.0 % [facility] LABORATORY nRBC Abs Auto 0.000 0.000 - [facility] 0.000 [facility] x10(3)/[facility] LABORATORY Specimen Anatomical Collection Method Collection Time Receive d Time (Source) Location / / Volume Laterality Blood specimen 07/29/2017 2:15 PM 018 2:36 (specimen) EST PM EST Resulting Agency Comment Spec In Lab Tamiko Jiménez MD HEMATOLOGY ORDERABLES Performing Organization Address City/[facility]/ZIP Code Phon e Number [place] [phone] (ABNORMAL) Prothrombin Time (07/29/2017 2:15 PM EST) P athologist Signature PT 24.4 (H) 11.8 - 14.0 [facility] LABORATORY INR 2.2 (H) 0.9 - 1.1 [facility] LABORATORY [...] Jiménez MD HEMATOLOGY ORDERABLES Performing Organization Address City/[facility]/[place] [address] Arterial Duplex Leg, Unil (07/29/2017 11:50 AM EST) Component Value Ref Test Analysis Performed At Patholo gist Range Method Time Signature VB Text Department: Vascular Surgery Lab VASCUBASE Report Patient: [id number] (GREGORY FATIMA) CPT: 90635 ICD10: Z09;I97.610 Referring Physician: TAMIKO JIMÉNEZ ?? [...] Volume Laterality 07/29/2017 11:50 AM EST Tamiko Jiémnez MD VASCULAR ORDERABLES Performing Organization Address City/State/ZIP Code Phon e Number VASCUBASE Duplex for DVT, Leg, Unilat (07/29/2017 11:50 AM EST) Component Value Ref Test Analysis Performed At [facility] Range Method Time Signature VB Text Department: Vascular Surgery Lab VASCUBASE Report Patient: [id number] (GREGORY FATIMA) CPT: 37819 ICD10: I82.441 Referring Physician: TAMIKO JIMÉNEZ ?? [...] he calf. Notification: Marquis Pathak MD (pager #[phone]) was notif ied of the preliminary findings. [...] STAT documented in this encounter Care Teams Marketing Campaign Analyst Relationship Specialty Start Date End Date Lovely Vicente MD PCP - General 04/16/[address] [facility] [place] [address] documented as of this encounter
--- OUTSIDE RECORDS SUMMARY | 2022-02-20 08:14 | XMS_ITS | Encounter Summary ---
:1945 Author Organization [facility] Address [facility] [place] [address] Care Team Providers Name Role Phone Lovely Vicente MD Primary Care Provider Encounter Details Date Type Department Care Team Description 07/29/2017 Transcribe Orders Laboratory Lovely Vicente, Coronary artery rupture; [facility] Ischemic cardiomyopathy; [facility] [address] Atherosclerosis of grindstone co ronary artery, angina presence unspecified, unspecified whether grindstone or transplanted heart; [place], [place] [address] Essential hypertension, malignant; [address] [place], [place] 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, unspecified jail insulin use status [phone] [id number] Social History Tobacco Use Types Packs/Day Years [...] Vitaliy Nobles MD [facility] CARDIOLOGY [place], [place] [address] (Wo rk) Scheduled Orders Name Type Priority Associated Diagnoses Order S chedule Lab Use Only, Fax Lab Routine Coronary arter y rupture Expected: 07/29/2017 Request Ischemic cardiom yopathy (Approximate), Atherosclerosis of grindstone Ex jose: 07/29/2018 coronary artery, angina presence unspecified, unspecified whether grindstone or transplanted heart Essential hypertension, malignant documented as of this encounter Results Uric acid (08/04/2017 12:55 PM EST) P athologist Signature Uric Acid 7.1 3.5 - 8.5 [place] RYAN mg/dL [facility] LABORATORY Specimen Anatomical Collection Method Collection Time Receive d Time (Source) Location / / Volume Laterality Blood specimen 08/04/2017 12:55 8 1:01 (specimen) PM EST PM EST Resulting Agency Comment Spec In Lab Lovely Vicente MD CHEMISTRY ORDERABLES Performing Organization Address City/State/[place] [address] (ABNORMAL) Hemogram (08/04/2017 12:55 PM EST) Analysis Performed At Patho logist Time Signature WBC 15.8 (H) 4.0 - 9.5 [place] x10(3)/[facility] LABORATORY RBC 3.48 (L) 4.58 - [place] R[place] 5.54 [facility] x10(6)/[facility] LABORATORY Hemoglobin 9.9 (L) 13.7 - [place] RY[place] 16.5 gm/dL [facility] LABORATORY Hematocrit 31.4 (L) 40.5 - [place] 48.5 % [facility] LABORATORY MCV 90.2 82.9 - [place] 93.1 [facility] LABORATORY MCH 28.4 27.5 - [place] R[place] 32.1 pg [facility] LABORATORY MCHC 31.5 (L) 32.0 - [place] R[place] 35.7 gm/dL [facility] LABORAT[facility] Platelets 310 145 - 357 [place] RY[place] x10(3)/[facility] LABORATORY RDWSD 51.8 (H) 36.0 - [place] 45.0 [facility] LABORATORY RDWCV 15.8 (H) 11.4 - [place] 13.8 % [facility] LABORATORY MPV 8.9 7.6 - 12.9 [facility] LABORATORY nRBC % Auto 0.0 % [facility] LABORATORY nRBC Abs Auto 0.000 0.000 - [facility] 0.000 [facility] x10(3)/[facility] LABORATORY Specimen Anatomical Collection Method Collection Time Receive d Time (Source) Location / / Volume Laterality Blood specimen 08/04/2017 12:55 8 1:01 (specimen) PM EST PM EST Resulting Agency Comment Spec In Lab Lovely Vicente MD HEMATOLOGY ORDERABLES Performing Organization Address City/State/ZIP [place] [address] (ABNORMAL) Comprehensive metabolic panel (non-fasting) (08/04/2017 12:55 PM EST) P athologist Signature Glucose Lvl 208 (H) 65 - [address] [facility] mg/dL [facility] LABORATORY Comment: Diabetes: >=200 mg/dL plus symp toms BUN 32 (H) 10 - 20 mg/dL [facility] LABORATORY Creatinine 1.58 (H) 0.80 - 1.50 mg/dL [facility] LABORATORY Sodium 136 135 - 145 mmol/L [facility] LABORATORY Potassium 5.5 (H) 3.5 - 5.0 mmol/L [facility] LABORATORY Calcium 8.6 8.5 - 10.5 mg/dL [facility] LABORATORY Total Protein 6.9 6.1 - 8.0 gm/dL [facility] LABORATORY Albumin 3.4 3.2 - 5.2 gm/dL [facility] LABORATORY AST 20 0 - 39 unit/L [facility] LABORATORY ALT 21 0 - 55 unit/L [facility] LABORATORY Alk Phos 93 40 - 120 unit/L [facility] LABORATORY Total Bilirubin 0.4 0.2 - 1.3 mg/dL [facility] LABORATORY Estimated GFR 43 (L) >=60 [facility] LABORATORY Comment: The reported eGFR should be multiplied b y 1.2 for patients. The MDRD is not an appropriate measure o f renal function for patients with body mass extremes or in patients with acute kidney failure. http://Tweetwall/DHnkdep http://Tweetwall/DHMCnkf Specimen Anatomical Collection Method Collection Time Receive d Time (Source) Location / / Volume Laterality Blood specimen 08/04/2017 12:55 8 1:01 (specimen) PM EST PM EST Resulting Agency Comment Spec In Lab Lovely Vicente MD CHEMISTRY ORDERABLES Performing Organization Address City/State/Z[place] [address] (ABNORMAL) Hemoglobin A1c (08/04/2017 12:55 PM EST) Analysis Performed At [facility] Time Signature Hemoglobin A1C 6.2 (H) 4.3 - 5.6 [facility] [...] [id number] Est Avg Gluc See note mg/dL [facility] [...] with hemoglobinopathies. Additional resources are available on [facility] ADA website. Macario HAMMOND, Ruthann J, Deysi R, et al. ??Tr anslating the A1C assay into estimated average glucose values. ??Diabetes Care 2008:31(8):8054-1289. Specimen Anatomical Collection Method Collection Time Receive d Time (Source) Location / / Volume Laterality Blood specimen 08/04/2017 12:55 8 1:01 (specimen) PM EST PM EST Resulting Agency Comment Spec In Lab Lovely Vicente MD CHEMISTRY ORDERABLES Performing Organization Address City/State/ZIP [place] [address] (ABNORMAL) Prothrombin Time (08/04/2017 12:55 PM EST) P athologist Signature PT 35.4 (H) 11.8 - 14.0 [facility] LABORATORY INR 3.5 (H) 0.9 - 1.1 [facility] [...] Organization Address City/State/[place] [address] documented in this encounter Visit Diagnoses Diagnosis Coronary artery rupture Acute myocardial infarction, unspecified site, episode of care unspecified Ischemic cardiomyopathy Other specified forms of chronic ischemi c heart disease Atherosclerosis of grindstone coronary arter y, angina presence unspecified, unspecified whether grindstone or transplanted heart Essential hypertension, malignant Diabetes mellitus due to underlying cond ition with diabetic nephropathy, unspecified jail insulin use status documented in this encounter Care Teams Internet Media Planner Relationship Specialty Start Date End Date Lovely Vicente MD PCP - General 04/16/[address] [place] [address] documented as of this encounter
--- OUTSIDE RECORDS SUMMARY | 2022-02-20 08:14 | XMS_ITS | Encounter Summary ---
:1945 Author Organization [facility] [place] [address] Care Team Providers Name Role Phone Lovely Vicente MD Primary Care Provider Reason for Visit Reason Comments Deep Vein Thrombosis Auth/Cert Specialty Diagnoses / Procedures Referred By Contact Refer red To Contact Diagnoses Critical lower limb ischemia CELLULITIS RT FOOT Procedures EMERGENCY Referral ID Status Reason Start Date Expiration Date Visits Requ ested Visits Authorized [id number] 1 1 Encounter Details Date Type Department Care Team Description 08/04/2017 Office Visit Vascular Surgery at [facility] itical lower limb [facility] ischemia [facility] [address] [place] VASCULAR SURGERY [id number] [place] [address] [phone] Social History Tobacco Use Types Packs/Day Years [...] was discharged on Coumadin. ??He presented to [facility] on 07/20 with mottled [...] Visit Cardiology Vitaliy Nobles MD [facility] ER CARDIOLOGY [place], [place] [address] (Wo rk) documented as of this encounter Visit Diagnoses Diagnosis Critical lower limb ischemia Unspecified circulatory system disorder documented in this encounter Care Teams Vp Relationship Specialty Start Date End Date Lovely Vicente MD PCP - General 04/16/[address] [place] [address] documented as of this encounter
--- OUTSIDE RECORDS SUMMARY | 2022-02-20 08:14 | XMS_ITS | Encounter Summary ---
:1945 Author Organization [facility] [place] [address] Care Team Providers Name Role Phone Lovely Vicente MD Primary Care Provider Encounter Details Date Type Department Care Team Description 07/29/2017 Transcribe Orders Laboratory Lovely Vicente MD [place] [address] [employer] [address] [address] [place], [place] [id number] (Wo rk) Social History Tobacco Use Types [...] MD [facility] ER CARDIOLOGY [place], [place] [address] (Wo rk) documented as of this encounter Visit Diagnoses Not on filedocumented in this encounter Care Teams Suspender Maker Relationship Specialty Start Date End Date Lovely Vicente MD PCP - General 04/16/15 [facility] [employer] [address] [address] documented as of this encounter
--- OUTSIDE RECORDS SUMMARY | 2022-02-20 08:14 | XMS_ITS | Encounter Summary ---
:1945 Author Organization [facility] [place] [address] Care Team Providers Name Role Phone Lovely Vicente MD Primary Care Provider Encounter Details Date Type Department Care Team Description 07/29/2017 Transcribe Orders Laboratory Lovely Vicente MD [place] [address] [employer] [address] [address] [place], [place] [phone] (Wo rk) Social History Tobacco Use Types [...] Nobles MD [facility] ER CARDIOLOGY [place], [place] [address] (Wo rk) documented as of this encounter Visit Diagnoses Not on filedocumented in this encounter Care Teams Supervisor Sewer Maintenance Relationship Specialty Start Date End Date Lovely Vicente MD PCP - General 04/16/15 [facility] [address] [address] documented as of this encounter
--- OUTSIDE RECORDS SUMMARY | 2022-02-20 08:14 | XMS_ITS | Encounter Summary ---
:1945 Author Organization [facility] [place] [address] Care Team Providers Name Role Phone Lovely Vicente MD Primary Care Provider Encounter Details Date Type Department Care Team Description 08/02/2017 Telephone Pain Management at Angeles Bueno, [place] [address] Social History Tobacco Use Types Packs/Day [...] Management Center Preauthorization Request Patient: Don Fatima [id number] Fax received from [facility] requesting we obtain prior authorization for Lidocaine patches prescribed by Barbra Soares APRN. RX insurance plan: [employer] RX insurance telephone: [phone] Patient Diagnosis: right foot pain secondary to PVD and ischemia Previous medications attempted: Tylenol, Tramadol, Dilaudid The following action was taken after discussion with the sales representative facility services: _x_ pharmacy informed Authorized dosage or amount: 5% on patch on for 12 hours, then remove for 12 hours. Angeles Rodrigez, RN documented in this encounter Plan of Treatment Upcoming Encounters Date Type Specialty Care Team Description 03/26/2022 Office Visit Cardiology Vitaliy Nboles MD [facility] ER CARDIOLOGY [place], [place] [address] (Wo rk) documented as of this encounter Visit Diagnoses Not on filedocumented in this encounter Care Teams Chocolate Refining Roller Relationship Specialty Start Date End Date Lovely Vicente MD PCP - General 04/16/[address] [place] [address] documented as of this encounter
--- OUTSIDE RECORDS SUMMARY | 2022-02-20 08:14 | XMS_ITS | Encounter Summary ---
:1945 Author Organization [place] [address] Care Team Providers Name Role Phone Lovely Vicente MD Primary Care Provider Reason for Visit Reason Comments Foot Pain Auth/Cert Specialty Diagnoses / Procedures Referred By Contact Refer red To Contact Diagnoses Ischemic foot Procedures NAYE OBSVO Referral ID Status Reason Start Date Expiration Date Visits Requ ested Visits Authorized [id number] 1 1 Encounter Details Date Type Department Care Team Description 07/27/2017 Emergency 1 [facility] [place] Lokesh Swenson MD [facility] [place] [address] Femoral artery pseudo-aneurysm, right; [facility] Tam Bauman MD [facility] [place] [address] [place] [address] Social History Tobacco Use Types Packs/Day [...] Gregory Fatima Patient Age: 72 y.o. 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 Issues after hours and on weekends [...] he was started on Coumadin given elevated [id number] score. 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 He [...] in the last 7068 hours. Invalid input(s): [id number] Recent Labs 07/08/17 0400 07/07/17 0515 07/06/17 [...] 8:30 AM OSWALDO, THREE L Lab 3L [facility] [phone] 07/30/2017 9:40 AM Danette Maxwell APRN Cardiology at [place] [phone] 08/04/2017 1:00 PM Daniele Mooney [place] Vascular Lab at [place] [phone] 08/04/2017 2:15 PM Arik Clement MD Vascular Surgery at [place] [phone] 08/11/2017 10:00 AM [facility] ROOM 2 XRay at [place] [phone] Please go to [employer] [facility] Area 3T ([place] Location). 08/11/2017 11:00 AM Yuan Retana MD Cardiac Surgery at [place] [phone] 09/07/2017 3:00 PM LAB, THREE L Lab 3L [facility] [phone] 09/07/2017 4:00 PM Luz Prescott MD Endocrinology at [place] [phone] Discharge References/Attachments None documented in this encounter [...] MINI 31 gauge x 4 times daily. 16 Needle levothyroxine Take 1 tablet by mouth [...] mg by mouth 0 01/16/2019 tablet daily. cephalexin (KEFLEX) Take 1 capsule by 20 [...] Take 0.5 tablets by 90 tablet 3 07/14/2017 01/10 /2018 (PRINIVIL;ZESTRIL) 20 mouth daily. mg Tablet meTOPROLOL [...] Gas) No results found for: PHART, PO2ART, PCF1YZR Assessment/Plan: 72 y.o. 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 [place] body weight: 68.4 kg (150 lb 12.7 [...] spent >30 minutes (Day of Discharge Code 99874) involved in the final examination of the [...] he was started on Coumadin given elevated [id number] score. 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 He [...] SETUP performed by Manny Mcknight MD at [facility] MAIN OR ??? PRO CABG, ARTERIAL, SINGLE N/A 07/07/2017 @CABG, USING ARTERIAL GRAFT;SINGLE ARTERIAL GRAFT (WRVU 33.75) performed by Yuan Retana MD at [facility] MAIN OR ??? PRO CABG, ARTERY-VEIN, TWO N/A 07/07/2017 @CABG, TWO VENOUS GRAFTS & ARTERIAL GRAFT (WRVU 7.93) performed by Yuan Retana MD at [facility] MAIN OR ??? PRO COLONOSCOPY, REMV LESN, SNARE 01/16/2014 COLONOSCOPY, POLYPECTOMY, REMOVAL LESION BY SNARE performed by Nohemi Jaimes MD at [facility] ENDOSCOPY ??? PRO ENDOSCOPY W/VIDEO-ASST VEIN HARVEST, CABG Right 07/07/2017 ENDOSCOPIC HARVEST VEIN(S) FOR CABG (WRVU 0.31) performed by Yuan Retana MD at [facility] MAIN OR ??? PRO THYROIDECTOMY 03/28/2013 THYROIDECTOMY, TOTAL OR COMPLETE performed by Manny Mcknight MD at [facility] MAIN OR Prior To Admission Medications: (Not [...] Procedure Component Value Units Date/Time Blood culture [[id number]] Collected: 07/09/1739 Lab Status: Final result Specimen: Blood from Arm, Right Updated: 07/14/17701 Blood Culture No growth at 5 days. Blood culture [[id number]] Collected: 07/09/170 Lab Status: Final result Specimen: [...] ischemic CM EF 30%, iatrogenic hypothyroidism, IDDM2, MARI AVICTORIA on CPAP, and recent admission for critical [...] Full Code Family PCP Lovely Vicente MD [phone] Attestation Please see my note for details [...] encounter Miscellaneous Notes Plan of Care - [place]-Joyce Damian, PT - 07/27/2017 3:26 PM EST [...] Anticipated Discharge Disposition: home with assist Pager: [phone] JOYCE KING, PT Inpatient Physical Therapy 2017 [...] patient's evaluation including the following functional test(s) [facility]. Current ability measures, co-morbidities and clinical judgement [...] SETUP performed by Manny Mcknight MD at [facility] MAIN OR ??? PRO CABG, ARTERIAL, SINGLE N/A 07/07/2017 @CABG, USING ARTERIAL GRAFT;SINGLE ARTERIAL GRAFT (WRVU 33.75) performed by Yuan Retana MD at [facility] MAIN OR ??? PRO CABG, ARTERY-VEIN, TWO N/A 07/07/2017 @CABG, TWO VENOUS GRAFTS & ARTERIAL GRAFT (WRVU 7.93) performed by Yuan Retana MD at [facility] MAIN OR ??? PRO COLONOSCOPY, REMV LESN, SNARE 01/16/2014 COLONOSCOPY, POLYPECTOMY, REMOVAL LESION BY SNARE performed by Nohemi Jaimes MD at [facility] ENDOSCOPY ??? PRO ENDOSCOPY W/VIDEO-ASST VEIN HARVEST, CABG Right 07/07/2017 ENDOSCOPIC HARVEST VEIN(S) FOR CABG (WRVU 0.31) performed by Yuan Retana MD at [facility] MAIN OR ??? PRO THYROIDECTOMY 03/28/2013 THYROIDECTOMY, TOTAL OR COMPLETE performed by Manny Mcknight MD at [facility] MAIN OR MEDICATIONS: No current facility-administered medications [...] up in clinic 1-2 weeks after discharge. [facility] Vascular Surgery Plan of Care - Jazmín [...] Visit Cardiology Vitaliy Nobles MD [facility] ER CARDIOLOGY [place], [place] [address] (Wo rk) documented as of this [...] 175 65 - 199 [place]AT[place] RYAN mg/dL [facility] Comment: Supplemental ranges: <140 mg/dL before meals <180 mg/dL all other times of the day Specimen Anatomical Collection Method Collection Time Receive d Time (Source) Location / / Volume Laterality Blood specimen 07/27/2017 11:53 8 (specimen) AM EST 11:53 AM EST Tam Bauman MD POINT OF CARE TEST ORDERABLE S Performing Organization Address City/State/ZIP Code Phon e Number [place] [id number] [address] LAB[address] Arterial Duplex Leg, Unil (07/27/2017 7:40 AM EST) Component Value Ref Test Analysis Performed At [facility] Range Method Time Signature VB Text Department: Vascular Surgery Lab VASCUBASE Report Patient: [id number] (GREGORY FATIMA) CPT: 54665 ICD10: I97.610;I72.4;Z09 Referring Physician: TAM BAUMAN ?? [...] Signature POC Glucose 96 65 - 199 [facility] mg/dL [facility] Comment: Supplemental ranges: <140 mg/dL before meals <180 mg/dL all other times of the day Specimen Anatomical Collection Method Collection Time Receive d Time (Source) Location / / Volume Laterality Blood specimen 07/27/2017 6:51 AM 018 6:51 (specimen) EST AM EST Tam Bauman MD POINT OF CARE TEST ORDERABLE S Performing Organization Address City/[facility]/ZIP Code Phon e Number [address] ABORH Recheck Status (07/27/2017 12:53 AM EST) [facility] theBench Method Time Signature ABORH Type Completed [facility] LABORATORY Specimen Anatomical Collection Method Collection Time Receive d Time (Source) Location / / Volume Laterality Blood specimen 07/27/2017 12:53 8 (specimen) AM EST 12:58 AM EST Resulting Agency Comment Spec In Lab Angela Swenson MD BLOOD BANK ORDERABLES Performing Organization Address City/[facility]/ZIP Code Phon e Number [address] Gold Tube HOLD (07/27/2017 12:53 AM EST) P athologist Signature Gold Hold Sample in [facility] LABORATORY Specimen Anatomical Collection Method Collection Time Receive d Time (Source) Location / / Volume Laterality Blood specimen Venous Draw / 07/27/2017 12:53 07/27/19 18 1:01 (specimen) Unknown AM EST AM EST Angela Swenson MD CHEMISTRY ORDERABLES Performing Organization Address City/[facility]/ZIP [place] [address] (ABNORMAL) Differential, Automated (07/27/2017 12:53 AM EST) [facility] theBench Method Time Signature Neutrophils % 75.0 % [facility] Neutr Abs (ANC) 11.30 (H) 1.70 - [facility] 6.10 [facility] x10(3)/[facility] LABORATORY Lymphocytes % 9.9 % [facility] Lymphocytes Abs 1.5 0.9 - 3.2 [facility] x10(3)/[facility] LABORATORY Monocytes % 8.6 % [facility] Monocyte Abs 1.3 (H) 0.3 - 0.9 [facility] x10(3)/[facility] LABORATORY Eosinophils % 4.8 % [facility] Eosinophils Abs 0.7 (H) 0.0 - 0.4 [facility] x10(3)/[facility] LABORATORY Basophils % 0.8 % [facility] Basophils Abs 0.1 0.0 - 0.1 [place] 496840(3)/[facility] LABORATORY Immature Gran % 0.90 % [facility] Comment: Immature granulocytes(IG's)percentage an d absolute count will include metamyelocytes, myelocytes, and promyelo cytes. Blood smears from CBCs yielding IG's will be scanned manually for concor dance. If this scan disagrees with the automated IG or if promyelocytes are not ed, a manual differential will be performed. Melisa Gran Abs 0.13 (H) 0.00 - 0.04 x10(3)/[facility] LABORATORY Specimen Anatomical Collection Method Collection Time Receive d Time (Source) Location / / Volume Laterality Blood specimen 07/27/2017 12:53 8 1:00 (specimen) AM EST AM EST Resulting Agency Comment Spec In Lab Angela Swenson MD HEMATOLOGY ORDERABLES Performing Organization Address City/State/[place] [address] (ABNORMAL) Hemogram (07/27/2017 12:53 AM EST) Analysis Performed At Patho logist Time Signature WBC 15.0 (H) 4.0 - 9.5 [facility] x10(3)/[facility] LABORATORY RBC 3.59 (L) 4.58 - [place] 5.54 [facility] x10(6)/[facility] LABORATORY Hemoglobin 10.3 (L) 13.7 - [place] ZHAORYAN 16.5 gm/dL [facility] Hematocrit 32.6 (L) 40.5 - [place] 48.5 % [facility] MCV 90.8 82.9 - [facility] RYAN 93.1 [facility] ER LABORATORY MCH 28.7 27.5 - [place] 32.1 pg [facility] MCHC 31.6 (L) 32.0 - [place] ZHAORYAN 35.7 gm/dL [facility] Platelets 322 145 - 357 [facility] x10(3)/[facility] LABORATORY RDWSD 48.7 (H) 36.0 - [facility] RYAN 45.0 [facility] ER LABORATORY RDWCV 14.7 (H) 11.4 - [facility] OHIORYAN 13.8 % [facility] MPV 8.9 7.6 - 12.9 [facility] ER LABORATORY nRBC % Auto 0.0 % [facility] nRBC Abs Auto 0.000 0.000 - [place] RYAN 0.000 [facility] x10(3)/[facility] LABORATORY Specimen Anatomical Collection Method Collection Time Receive d Time (Source) Location / / Volume Laterality Blood specimen 07/27/2017 12:53 8 1:00 (specimen) AM EST AM EST Resulting Agency Comment Spec In Lab Angela Swensno MD HEMATOLOGY ORDERABLES Performing Organization Address City/[facility]/[place] [address] Antibody screen (07/27/2017 12:53 AM EST) [facility] gist Method Time Signature Ab Screen Negative [facility] LABORATORY Expires at 07/30/2017 KATALINA DAVIS [id number] on: [facility] Specimen Anatomical Collection Method Collection Time Receive d Time (Source) Location / / Volume Laterality Blood specimen 07/27/2017 12:53 8 (specimen) AM EST 12:58 AM EST Resulting Agency Comment Spec In Lab Angela Swenson MD BLOOD BANK ORDERABLES Performing Organization Address City/State/[place] [address] ABO/Rh Typing (07/27/2017 12:53 [...] Organization Address City/State/[place] [address] (ABNORMAL) Prothrombin Time (07/27/2017 12:53 AM EST) P athologist Signature PT 19.1 (H) 11.8 - 14.0 [facility] LABORATORY INR 1.6 (H) 0.9 - [...] Organization Address City/State/[place] [address] (ABNORMAL) Basic Metabolic Panel (non-fasting) (07/27/2017 12:53 AM EST) P athologist Signature Glucose Lvl 95 65 - 199 [facility] mg/dL [facility] Comment: Diabetes: >=200 mg/dL plus symp toms BUN 37 (H) 10 - 20 mg/dL [facility] LABOR[facility]ORY Creatinine 1.49 0.80 - 1.50 mg/dL [facility] Sodium 137 135 - 145 mmol/L [facility] Potassium 5.1 (H) 3.5 - 5.0 mmol/L [facility] [...] mmol/L [facility] Calcium 8.6 8.5 - 10.5 mg/dL [facility] Estimated GFR 46 (L) >=60 [facility] Comment: The reported eGFR should be multiplied b y 1.2 for patients. The MDRD is not an appropriate measure o f renal function for patients with body mass extremes or in patients with acute kidney failure. 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
Routine documented in this encounter Care Teams Lap Maker Relationship Specialty Start Date End Date Lovely Vicente MD PCP - General 04/16/[address] [facility] [address] [place] [address] documented as of this encounter
--- OUTSIDE RECORDS SUMMARY | 2022-02-20 08:14 | XMS_ITS | Encounter Summary ---
:1945 Author Organization [facility] [place] [address] Care Team Providers Name Role Phone Lovely Vicente MD Primary Care Provider Encounter Details Date Type Department Care Team Description 08/03/2017 Telephone Pain Management at Angeles Bueno, [place] [address] Social History Tobacco Use Types Packs/Day [...] Management Center Preauthorization Request Patient: Don Fatima [id number] Fax received from [facility] requesting we obtain prior authorization for Lidocaine Patches prescribed by Barbra Soares APRN. RX insurance plan: [facility] insurance telephone: [phone] Patient ?? Diagnosis: right foot pain secondary to PVD and ischemia ?? Previous medications attempted: Tylenol, Tramadol, Dilaudid Authorization/Reference number: [id number], PBP Code 801 _x_ denied, provider and patient informed _x_ appeal initiated by provider, patient informed Angeles Rodrigez, RN documented in this encounter Plan of Treatment Upcoming Encounters Date Type Specialty Care Team Description 03/26/2022 Office Visit Cardiology Vitaliy Nobles MD [facility] ER CARDIOLOGY [place], [place] [address] (Wo rk) documented as of this encounter Visit Diagnoses Not on filedocumented in this encounter Care Teams Entry Level Finance Relationship Specialty Start Date End Date Lovely Vicente MD PCP - General 04/16/15 [facility] [address] [place] [address] documented as of this encounter
--- OUTSIDE RECORDS SUMMARY | 2022-02-20 08:14 | XMS_ITS | Encounter Summary ---
:1945 [place] [address] Care Team Providers Name Role Phone Lovely Vicente MD Primary Care Provider Reason for Visit Reason Comments Hospital Transfer cold foot post CABG Auth/Cert Specialty Diagnoses / Procedures Referred By Contact Refer red To Contact Diagnoses Critical lower limb ischemia Procedures NAYE IPI Referral ID Status Reason Start Date Expiration Date Visits Requ ested Visits Authorized [id number] 1 1 Encounter Details Date Type Department Care Team Description 07/20/2017 Hospital Encounter 4 Herminia Ibarra MD [facility] [place] [address] Critical lower limb [facility] Arik Clement MD [facility] [place] [address] [place] [address] Social History Tobacco Use Types Packs/Day Years [...] home. Important Studies and Lab Data: Labs: [employer] Lab Results Component Value Date INR 1.5 [...] For any problems or questions please call [phone] ZELDA Smith, flight engineer performance qualified Nurse Clinician For issues on weeknights after 5pm and weekends please call [phone] and ask for the Vascular Fellow acquisitions assistant. General Instructions None Future Appointments and Orders Future Appointments Provider Department Dept Phone 08/04/2017 1:00 PM Daniele Mooney [place] [facility] [place] [phone] 08/04/2017 2:15 PM Arik Clement MD Vascular Surgery at [place] [phone] 09/07/2017 3:00 PM MAYRA CHACON Lab [facility] [phone] 09/07/2017 4:00 PM Luz Prescott MD Endocrinology at [place] [phone] Future Orders Complete By Expires Arterial Duplex Leg, Unil [VAS32 Custom] 07/27/2017 (Approximate) 01/26/2018 Process Instructions: There is no in-house vascular laboratory asst available on weeknights (5pm-8am), weekends, or holidays. IF THIS IS A REQUEST FOR AN EMERGENT STUDY DURING THOSE HOURS, please have the senior provider responsible for the patient page the Vascular Surgery Fellow/Senior Resident acquisitions assistant to discuss options. Scheduling Instructions: Questions: Indication for study/signs & symptoms: Right femoral PSA s/p cardiac cath Question to be answered: bloodflow to PSA Laterality: Right Is there a RIGHT LOWER EXTREMITY graft?: No Lower limb right segments: Common Femoral Is there a stent?: No At which location will this be performed?: [place] Referral to Home Health - at DISCHARGE [AMD5665 CPT(R)] As directed Process Instructions: Scheduling Instructions: Comments: DOCUMENTATION FOR VNA SERVICES (INCLUDING THOSE PATIENTS WITH MEDICARE COVERAGE REQUIRING HOME VNA SERVICES AND/OR HOSPICE SERVICES) PATIENT'S LOCATION: Gregory Fatima [address] [place] [address] [place] [id number] (home) Cell: Telephone Information: Oil Field Pipeline Supervisor's Name: self In discussion with the attending physician, it is certified that this patient is under their care and that they, or a Nurse Practitioner,Clinical Nurse specialist or Physician Automated Manufacturing Instructor who is working directly with them, had [...] CARE AGENCY: [facility] ([facility] [place] [facility]-is in [place]) PHONE: [phone] FAX: [phone] Start of care: 24- 48 hours FOR [...] patient'sPCP: Lovely Vicente MD [address] [facility] [facility] [place] [address] All VNA agencies which cover the area [...] For any problems or questions please call [phone] ZELDA Smith, flight engineer performance qualified Nurse Clinician For issues on weeknights after 5pm and weekends please call [phone] and ask for the Vascular Fellow acquisitions assistant. documented in this encounter Medications at Time [...] RN - 07/20/2017 2:53 PM EST The patient/medical office representative has been provided a list of Home Health Agencies/DME vendors which serve their preferred geographic area. A letter describing our affiliations was reviewed with them and theywere educated about their right to choose where referrals are placed. Patient requests referral to [facility]. PHONE: [phone] FAX: [phone]. Expected date of discharge: 07/20/2017 . Referral routed to the Snuff Maker for matching with agency/vendor and to provide any required information. Naty Pulliam RN - 07/20/2017 11:37 AM EST The patient/medical office representative has been provided a list of Home Health Agencies/DME vendors which serve their preferred geographic area. A letter describing our affiliations was reviewed with them and theywere educated about their right to choose where referrals are placed. Patient requests referral to [facility] ([facility] [place] [facility]- is in [facility] PHONE: [phone] FAX: [phone]. Expected date of discharge: 07/20/2017 . Referral routed to the Snuff Maker for matching with agency/vendor and to provide any required information. Katina Pulliam RNuniversity administrator Janneth Lee MD - 07/20/2017 7:29 AM [...] MD at [facility] MAIN OR Functional Status/Social Hx: [...] -ISS -pain control Discussed with Vascular Fellow acquisitions assistant. Chris Valadez MD PGY2 Pager [phone] documented in this encounter ED Notes Annita Reaves MD - 07/20/2017 3:15 PM EST Emergency Department Gregory Fatima is a 72 y.o. male who presents to [facility] with arterial thrombosis. History [...] Office of Care Management Initial Assessment Naty uPlliam RN reviewed record and discussed patient with Care Team. Source of Information: EDH review, rounds, Patient interview Introduced self/reviewed role; services accepted. Reason for Hospitalization: Critical lower Limb Ischemia Past Medical History: Diagnosis Date ??? BPH (benign prostatic hyperplasia) 11/28/2013 ??? Melanoma 2006 mid back ??? Urinary retention 04/05/2013 Hospitalizations Within the Past 30 Days: [facility] 07/05/17 Anticipated Length Of [...] Health/Prescription Coverage: Primary Insurance: MEDICARE Secondary Insurance: [employer] [facility] Prescription Coverage: See above Preferred Pharmacy: [facility] Other: N/A Primary Care Provider: Lovely Vicente MD [phone] Patient/Caregiver Goals of Treatment: Patient plans to return home when medically ready Potential Needs for Transition of Care: Rehab/SNF: N/A Home Health: [facility] ([facility] [place] [facility]-is in [place]) PHONE: [phone] FAX: [phone] DME: N/A Dialysis: N/A Community Resources: N/A Transportation: Patient family will transport Other: N/A Anticipated Barriers to Discharge/Special Considerations: None Plan: Patient plans to return home with home health services when medically ready A member of the Care Management team will continue to monitor progress, follow for continuity of care and assist with transition of care planning. Naty Pulliam RN Pager: [phone] ED Triage - Rayna Weir RN - 07/20/2017 12:28 AM EST Pt transferred from [place] for blue right foot and painful toes. [...] Visit Cardiology Vitaliy Nobles MD [facility] ER [address] [place], [place] [address] (Wo rk) documented as of this encounter Procedures Procedure Name Priority Date/Time Associated Comments Diagnosis REHAB/PRE VOCATIONAL COUNSELOR SCAN 09/02/2017 12:00 Res ults for this [...] TO LAB EST procedure are i n ([facility]) the results section. APTT STAT 07/20/2017 2:25 AM Results f or this EST procedure are i n the results section. PROTHROMBIN TIME STAT 07/20/2017 2:25 AM Resul ts for this EST procedure are i n the results section. BASIC METABOLIC PANEL STAT 07/20/2017 2:25 AM Results for this (NON-FASTING) EST procedure are in the results section. documented in this encounter Results SCAN DOC: REHAB/PRE VOCATIONAL COUNSELOR (09/02/2017 12:00 AM EST) Narrative 09/02/2017 12:00 AM EST This result has an attachment that is no t available. Ordered by an unspecified provider. Scanning Provider MEDIA MGR SCAN EXT ORDR/RSLT POCT Glucose (07/20/2017 12:04 PM EST) athologist Signature POC Glucose 189 65 - 199 [facility] mg/dL [facility] Comment: Supplemental ranges: <140 mg/dL before meals <180 mg/dL all other times of the day Specimen Anatomical Collection Method Collection Time Receive d Time (Source) Location / / Volume Laterality Blood specimen 07/20/2017 12:04 7 (specimen) PM EST 12:04 PM EST Arik Clement MD POINT OF CARE TEST ORDERABLE S Performing Organization Address City/State/[place] [address] (ABNORMAL) Differential, Automated (07/20/2017 10:34 AM EST) Patholo gist Method Time Signature Neutrophils % 84.3 % [facility] Neutr Abs (ANC) 14.27 (H) 1.70 - [facility] 6.10 [facility] x10(3)/[facility] L LABORATORY Lymphocytes % 5.6 % [facility] Lymphocytes Abs 1.0 0.9 - 3.2 [facility] x10(3)/[facility] LABORATORY Monocytes % 6.1 % [facility] Monocyte Abs 1.0 (H) 0.3 - 0.9 [facility] x10(3)/[facility] LABORATORY Eosinophils % 2.4 % [facility] Eosinophils Abs 0.4 0.0 - 0.4 [facility] x10(3)/[facility] LABORATORY Basophils % 0.5 % [facility] Basophils Abs 0.1 0.0 - 0.1 [facility] x10(3)/[facility] LABORATORY Immature Gran % 1.10 % [facility] [...] Gran Abs 0.19 (H) 0.00 - 0.04 x10(3)/[facility] LABORATORY Specimen Anatomical Collection Method Collection Time Receive d Time (Source) Location / / Volume Laterality Blood specimen 07/20/2017 10:34 7 (specimen) AM EST 10:39 AM EST Resulting Agency Comment Spec In Lab Arik Clement MD HEMATOLOGY ORDERABLES Performing Organization Address City/State/[place] [address] (ABNORMAL) Hemogram (07/20/2017 10:34 AM EST) Analysis Performed At Patho logist Time Signature WBC 17.0 (H) 4.0 - 9.5 [facility] x10(3)/[facility] LABORATORY RBC 3.70 (L) 4.58 - [place] 5.54 [facility] x10(6)/[facility] LABORATORY Hemoglobin 10.8 (L) 13.7 - [place] 16.5 gm/dL [facility] Hematocrit 33.4 (L) 40.5 - [place] 48.5 % [facility] LABOR[facility] MCV 90.3 82.9 - [facility] RYAN 93.1 [facility] LABORATORY MCH 29.2 27.5 - [place] 32.1 pg [facility] LABORATORY MCHC 32.3 32.0 - [place] 35.7 gm/dL [facility] Platelets 211 145 - 357 [facility] x10(3)/[facility] LABORATORY RDWSD 49.1 (H) 36.0 - [place] 45.0 [facility] LABORATORY RDWCV 14.7 (H) 11.4 - [facility] 13.8 % [facility] LABORATORY MPV 9.2 7.6 - 12.9 [facility] LABORATORY nRBC % Auto 0.0 % [facility] nRBC Abs Auto 0.000 0.000 - [place] 0.000 [facility] x10(3)/[facility] LABORATORY Specimen Anatomical Collection Method Collection Time Receive d Time (Source) Location / / Volume Laterality Blood specimen 07/20/2017 10:34 7 (specimen) AM EST 10:39 AM EST Resulting Agency Comment Spec In Lab Arik Clement MD HEMATOLOGY ORDERABLES Performing Organization Address City/State/[place] [address] (ABNORMAL) APTT (07/20/2017 10:34 AM EST) P athologist Signature PTT 79 (H) 25 - 35 sec [facility] Comment: The recommended therapeutic range for fu ll dose, unfractionated heparin at [facility] is 80 ? 114 [...] Clement MD HEMATOLOGY ORDERABLES Performing Organization Address City/[facility]/ZIP Code Phon e Number [address] POCT Glucose (07/20/2017 7:41 AM EST) P athologist Signature POC Glucose 174 65 - 199 [facility] mg/dL [facility] Comment: Supplemental ranges: <140 mg/dL before meals <180 mg/dL all other times of the day Specimen Anatomical Collection Method Collection Time Receive d Time (Source) Location / / Volume Laterality Blood specimen 07/20/2017 7:41 AM 017 7:41 (specimen) EST AM EST Arik Clement MD POINT OF CARE TEST ORDERABLE S Performing Organization Address City/[facility]/ZIP Code Phon e Number [address] JULIAN, legs, multiple levels (07/20/2017 7:33 AM EST) Component Value Ref Test Analysis Performed At Patholo gist Range Method Time Signature VB Text Department: Vascular Surgery Lab VASCUBASE Report Patient: [id number] (GREGORY FATIMA) CPT: 82405 ICD10: I75.021;I99.8 Referring Physician: ARIK CLEMENT ?? [...] Test Analysis Performed At [facility] Range Method Time Signature VB Text Department: Vascular Surgery Lab VASCUBASE Report Patient: [id number] (GREGORY FATIMA) CPT: 29428 ICD10: I97.610;I99.8 Referring Physician: ARIK CLEMENT ?? [...] Signature POC Glucose 199 65 - 199 [facility] mg/dL [facility] Comment: Supplemental ranges: <140 mg/dL before meals <180 mg/dL all other times of the day Specimen Anatomical Collection Method Collection Time Receive d Time (Source) Location / / Volume Laterality Blood specimen 07/20/2017 3:41 AM 017 3:41 (specimen) EST AM EST Arik Clement MD POINT OF CARE TEST ORDERABLE S Performing Organization Address City/State/[place] [address] Lactate, whole blood, send to lab (Leb/CGP) (07/20/2017 2:25 AM EST) athologist Signature Lactate WB 2.0 0.5 - 2.2 [facility] mmol/L [facility] Specimen Anatomical Collection Method Collection Time Receive d Time (Source) Location / / Volume Laterality Blood specimen Venous Draw / 07/20/2017 2:25 AM 2016 2:37 (specimen) Unknown EST AM EST Resulting Agency Comment Spec In Lab Zulma Samuel MD CHEMISTRY ORDERABLES Performing Organization Address City/[facility]/[place] [address] (ABNORMAL) APTT (07/20/2017 2:25 AM EST) P athologist Signature PTT 36 (H) 25 - 35 sec [facility] Comment: The recommended therapeutic range for fu ll dose, unfractionated heparin at [facility] is 80 ? 114 [...] Reaves MD HEMATOLOGY ORDERABLES Performing Organization Address [facility] [place] [address] (ABNORMAL) Prothrombin Time (07/20/2017 [...] Reaves MD HEMATOLOGY ORDERABLES Performing Organization Address [facility] [place] [address] (ABNORMAL) Basic Metabolic Panel (non-fasting) (07/20/2017 2:25 AM EST) athologist Signature Glucose Lvl 187 65 - 199 [facility] mg/dL [facility] Comment: Diabetes: >=200 mg/dL plus symp toms BUN 35 (H) 10 - 20 mg/dL [facility]OR[facility]ORY Creatinine 1.51 (H) 0.80 - 1.50 mg/dL [facility] LABORATORY Sodium 134 (L) 135 - 145 mmol/L [facility]ORATORY Potassium Not Perf 3.5 - 5.0 mmol/L [facility] Comment: Specimen hemolyzed. Called by: [facility], Read back by: Chitra Orantes, Date/Time:07/20/17 [...] mg/dL [facility] Estimated GFR 46 (L) >=60 [facility] Comment: The reported eGFR should be multiplied b y 1.2 for patients. The MDRD is not an appropriate measure o f renal function for patients with body mass extremes or in patients with acute kidney failure. http://Flutter.[employer]/DHnkdep http://Motiga/DHMCnkf Specimen Anatomical Collection Method Collection Time Receive d Time (Source) Location / / Volume Laterality Blood specimen 07/20/2017 2:25 AM 017 2:33 (specimen) EST AM EST Resulting Agency Comment Spec In Lab Annita Reaves MD CHEMISTRY ORDERABLES Performing Organization Address City/State/ZIP [place] [address] documented in this encounter [...]
Routine documented in this encounter Care Teams System Consultant Relationship Specialty Start Date End Date Lovely Vicente MD PCP - General 04/16/15 [address] [facility] [address] [place] [address] documented as of this encounter
--- OUTSIDE RECORDS SUMMARY | 2022-02-20 08:14 | XMS_ITS | Encounter Summary ---
:1945 [place] [address] Care Team Providers Name Role Phone Lovely Vicente MD Primary Care Provider Encounter Details Date Type Department Care Team Description 07/29/2017 Hospital Encounter Vascular Lab at Critic monica Huber lower limb [facility] [place] [id number] Social History Tobacco Use Types Packs/Day Years [...] [facility] ER CARDIOLOGY [place], [place] [address] (Wo rk) documented as of this encounter Visit Diagnoses Diagnosis Critical lower limb ischemia Unspecified circulatory system disorder documented in this encounter Care Teams Return Agent Relationship Specialty Start Date End Date Lovely Vicente MD PCP - General 04/16/[address] [place] [address] [address] [place] [address] documented as of this encounter
--- OUTSIDE RECORDS SUMMARY | 2022-02-20 08:14 | XMS_ITS | Encounter Summary ---
:1945 Author Organization [facility] [place] [address] Care Team Providers Name Role Phone Lovely Vicente MD Primary Care Provider Reason for Visit Reason Comments Follow-up Encounter Details Date Type Department Care Team Description 07/29/2017 Office Visit Cardiac Surgery at [facility] Yuan Retana MD S/P CABG x [address] [facility] [place] [address] CARDIOTHORACIC SURGERY [phone] [place], [place] [address] (Wo rk) Social History Tobacco [...] evaluation by vascular surgery. Yuan Retana MD [phone] documented in this encounter Plan of Treatment Upcoming Encounters Date Type Specialty Care Team Description 03/26/2022 Office Visit Cardiology Vitaliy Nobles MD [facility] CARDIOLOGY [place], [place] [address] (Wo rk) documented as of this encounter Visit Diagnoses Diagnosis S/P CABG x 3 Postsurgical aortocoronary bypass status documented in this encounter Care Teams Woodworking Machinist Relationship Specialty Start Date End Date Lovely Vicente MD PCP - General 04/16/[address] [place] [address] documented as of this encounter
--- OUTSIDE RECORDS SUMMARY | 2022-02-20 08:14 | XMS_ITS | Encounter Summary ---
:1945 [place] [address] Care Team Providers Name Role Phone Lovely Vicente MD Primary Care Provider Reason for Visit Reason Onset Date Comments Questions 07/16/2017 fluid retention Encounter Details Date Type Department Care Team Description 07/16/2017 Telephone Cardiology at [facility] Martha Comer, Questions ([facility] RN retention ) [place] [address] Social History Tobacco Use Types Packs/Day [...] Comer RN - 07/16/2017 9:52 AM EST Kisah, calling to report that the pt continues [...] the direct number to the HF team ([phone]). She is aware of his appt with ETCHER ENAMELING Hans on 07/21/17 and the need for labs prior to that visit. verbalized good understanding of the current POC. documented in this encounter Plan of Treatment Upcoming Encounters Date Type Specialty Care Team Description 03/26/2022 Office Visit Cardiology Vitaliy Nobles MD [facility] ER CARDIOLOGY [place], [place] [address] (Wo rk) documented as of this encounter Visit Diagnoses Not on filedocumented in this encounter Care Teams Supervisor Final Relationship Specialty Start Date End Date Lovely Vicente MD PCP - General 04/16/[address] [place] [address] documented as of this encounter
--- OUTSIDE RECORDS SUMMARY | 2022-02-20 08:14 | XMS_ITS | Encounter Summary ---
:1945 [place] [address] Care Team Providers Name Role Phone Lovely Vicente MD Primary Care Provider Encounter Details Date Type Department Care Team Description 07/16/2017 Telephone Endocrinology at [facility] Manuela Holliday, [facility] [place] [address] ENDOCRINOLOGY DEPT [phone] [place], [place] [address] (Wo rk) Social History Tobacco [...] Cardiology Vitaliy Nobles MD [facility] ER CARDIOLOGY [place], [place] [address] (Wo rk) documented as of this encounter Visit Diagnoses Not on filedocumented in this encounter Care Teams Information Systems Security Developer Relationship Specialty Start Date End Date Lovely Vicente MD PCP - General 04/16/[address] [place] [address] documented as of this encounter
--- OUTSIDE RECORDS SUMMARY | 2022-02-20 08:14 | XMS_ITS | Encounter Summary ---
:1945 Author Organization [facility] [address] Care Team Providers Name Role Phone Lovely Vicente MD Primary Care Provider Reason for Visit Reason Onset Date Comments Other 07/22/2017 lovenox bridge Encounter Details Date Type Department Care Team Description 07/22/2017 Telephone Cardiology at [facility] Court Cadena RN Other (lovenox bridge) [place] [address] Social History Tobacco Use Types Packs/Day [...] 4:49 PM EST VAMSI Del Castillo, at [facility], called earlier today with a question re: lovenox bridge for this patient who was recently discharged from [facility] r/t a blood clot. Discharge note faxed to [facility] (fax# [phone], Ph#: [phone]) which contains instructions r/t lovenox bridge as [...] [facility] ER CARDIOLOGY [place], [place] [address] (Wo rk) documented as of this encounter Visit Diagnoses Not on filedocumented in this encounter Care Teams Skates Operator Relationship Specialty Start Date End Date Lovely Vicente MD PCP - General 04/16/[address] [place] [address] documented as of this encounter
--- OUTSIDE RECORDS SUMMARY | 2022-02-20 08:14 | XMS_ITS | Encounter Summary ---
:1945 Author Organization [facility] [place] [address] Care Team Providers Name Role Phone Lovely Vicente MD Primary Care Provider Encounter Details Date Type Department Care Team Description 07/24/2017 Telephone Vascular Surgery Melba Bob [facility] [place] [address] [facility] [phone] VASCULAR SURGERY [place], [place] [address] (Wo rk) Social History Tobacco [...] was discharged on Coumadin. ??He presented to [facility] on 07/20 with mottled toes [...] Vitaliy Nobles MD [facility] ER CARDIOLOGY [place], [place] [address] (Wo rk) documented as of this encounter Visit Diagnoses Not on filedocumented in this encounter Care Teams Cardroom Supervisor Relationship Specialty Start Date End Date Lovely Vicente MD PCP - General 04/16/[address] [facility] [address] [place] [address] documented as of this encounter
--- OUTSIDE RECORDS SUMMARY | 2022-02-20 08:14 | XMS_ITS | Encounter Summary ---
:1945 Author Organization [facility] [place] [address] Care Team Providers Name Role Phone Lovely Vicente MD Primary Care Provider Reason for Visit Reason Comments Pain Management Ankle Pain Toe Pain Encounter Details Date Type Department Care Team Description 07/30/2017 Office Visit Pain Management at [facility], Per ipheral neuropathy [place] ADVENTURE THERAPIST due to ischemia [facility] [address] Re[address], [place], [place] [phone] Social History Tobacco Use Types Packs/Day Years [...] Soares APRN - 07/30/2017 1:45 PM EST [facility] [place] [address] Phone: PAIN MANAGEMENT NEW PATIENT / CONSULTATION NOTE DATE OF VISIT 07/30/2017 Patient Don Fatima 1945 REFERRING PROVIDER Lovely Vicente MD [address] [place] [phone] PRIMARY CARE PROVIDER Lovely Vicente MD CHIEF [...] much relief PAST THERAPIES: Nothing MEDICATIONS The [place] and [place] Prescription Monitoring Program was checked and no [...] 33.75) performed by Yuan Retana MD at [facility] OR ??? PRO CABG, ARTERY-VEIN, TWO N/A 07/07/2017 @CABG, TWO VENOUS GRAFTS & ARTERIAL GRAFT (WRVU 7.93) performed by Yuan Retana MD at [facility] OR ??? PRO COLONOSCOPY, REMV LESN, SNARE 01/16/2014 COLONOSCOPY, POLYPECTOMY, REMOVAL LESION BY SNARE performed by Nohemi Jaimes MD at [facility] ENDOSCOPY ??? PRO ENDOSCOPY W/VIDEO-ASST VEIN HARVEST, CABG Right 07/07/2017 ENDOSCOPIC HARVEST VEIN(S) FOR CABG (WRVU 0.31) performed by Yuan Retana MD at [facility] OR ??? [...] referral, Lovely Vicente MD [address] [place] [id number]. 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
--- OUTSIDE RECORDS SUMMARY | 2022-02-20 08:14 | XMS_ITS | Encounter Summary ---
:1945 [place] [address] Care Team Providers Name Role Phone Lovely Vicente MD Primary Care Provider Encounter Details Date Type Department Care Team Description 08/03/2017 Hospital Encounter Radiology [facility] [place], [place] Mijares [facility] [place] [facility] [place] [address] VASCULAR SURGERY [phone] [place], [place] [address] (Wo rk) Social History Tobacco [...] mouth 0 01/16/2019 tablet daily. cephalexin (KEFLEX) take 1 capsule by 0 [...] mouth 0 06/2612/12/2021 2.5 mg Tablet daily. LANCATRACHITO SOLNANCYAR pen Inject 20 Units 15 mL 1 [...] times Insulin Pen daily (with meals). fluocinolone Twice daily to less 60 mL 2 10/04/2012 acetonide (SYNALAR) severe areas of 0.01 % external psoriasis solutionIndications: Psoriasis documented as of this encounter Plan of Treatment Upcoming Encounters Date Type Specialty Care Team Description 03/26/2022 Office Visit Cardiology Vitaliy Nobles MD [facility] CARDIOLOGY [place], [place] [address] (Wo rk) documented as of [...] and is aut o-finalizing. 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
--- OUTSIDE RECORDS SUMMARY | 2022-02-20 08:14 | XMS_ITS | Encounter Summary ---
:1945 [place] [address] Care Team Providers Name Role Phone Lovely Vicente MD Primary Care Provider Encounter Details Date Type Department Care Team Description 07/29/2017 Telephone Pain Aurelia Crawford MD [facility] [place] [address] PAIN CLINIC [phone] [place], [place] [address] (Wo rk) Social History Tobacco [...] 03/26/2022 Office Visit Cardiology Vitaliy Nobles MD [facility] CARDIOLOGY [place], [place] [address] (Wo rk) documented as of this encounter Visit Diagnoses Not on filedocumented in this encounter Care Teams Take Out Waiter Relationship Specialty Start Date End Date Lovely Vicente MD PCP - General 04/16/[address] [place] [address] documented as of this encounter
--- OUTSIDE RECORDS SUMMARY | 2022-02-20 08:15 | XMS_ITS | Encounter Summary ---
:1945 Author Organization [facility] [place] [address] Care Team Providers Name Role Phone Lovely Vicente MD Primary Care Provider Reason for Referral Consultation (Routine) - Closed Specialty Diagnoses / Referred By Contact Referred To Contact Procedures Cardiac Rehabilitation Diagnoses S/P CABG x 3 Yuan Webber, Cardiac Rehab, [address] [place], [place] CARDIOTHORACIC [address] [place] [address] Referral ID Status Reason Start Date Expiration Date Visits V isits Requested Authorized [id number] Closed Consult, 07/14/2017 01/10/2018 36 36 Test & Treat Reason for Visit Auth/Cert Specialty Diagnoses / Procedures Referred By Contact Refer red To Contact Diagnoses STEMI (ST elevation myocardial infarction) NSTEMI STEMI Procedures CARDIAC CATHETERIZATION NAYE IPI Referral ID Status Reason Start Date Expiration Date Visits Requ ested Visits Authorized [id number] 1 1 Encounter Details Date Type Department Care Team Description 07/05/2017 - Hospital Encounter Cardiac Special Daphne Shahid MD [facility] [place] [address] Non-ST elevation myocardial infarction ( NSTEMI); 07/14/2017 Care Unit Yuan Preciado MD [facility] [place] [address] S/P CABG x 3 [place] [id number] Social History Tobacco Use Types Packs/Day Years [...] Patient Age: 72 y.o. Birthdate: 1945 Language: Finnish Race: White Ethnicity: Not nor Admit Date: [...] , @ 1:20p Patient to follow-up with Dust Collector Attendant/heart failure team in one week. An appointment will be made for you. You may call [phone] Patient to follow-up with Cardiac Surgery, Dr. Yuan Webber, in ~ 4 weeks with CXR, EKG. Inpatient Provider Contact Information: [facility] Section of [facility]iac Surgery [facility] [address] FAX [phone] Discharge Diagnoses (Hospital Problems) Primary Diagnoses: CAD [...] [facility] MA[facility] OR ??? PRO CABG, ARTERIAL, SINGLE N/A 07/07/2017 @CABG, USING ARTERIAL GRAFT;SINGLE ARTERIAL GRAFT (WRVU 33.75) performed by Yuan Webber MD at [facility] MAIN OR ??? PRO CABG, ARTERY-VEIN, TWO N/A 07/07/2017 @CABG, TWO VENOUS GRAFTS & ARTERIAL GRAFT (WRVU 7.93) performed by Yuan Webber MD at [facility] MAIN OR ??? PRO COLONOSCOPY, REMV LESN, SNARE 01/16/2014 COLONOSCOPY, POLYPECTOMY, REMOVAL LESION BY SNARE performed by Nohemi Jaimes MD at [facility] ENDOSCOPY ??? PRO ENDOSCOPY W/VIDEO-ASST VEIN HARVEST, CABG Right 07/07/2017 ENDOSCOPIC HARVEST VEIN(S) FOR CABG (WRVU 0.31) performed by Yuan Webber MD at [facility] MAIN OR ??? PRO THYROIDECTOMY 03/28/2013 THYROIDECTOMY, TOTAL OR COMPLETE performed by Manny Mcknight MD at [facility] MAIN OR Prior To Admission Medications Prescriptions Prior to Admission Medication Sig Dispense Refill Last Dose ??? levothyroxine (SYNTHROID) 175 mcg Tablet Take 1 tablet by mouth daily. 90 tablet 3 07/05/2017 [id number] ??? ascorbic acid, vitamin C, (VITAMIN C) [...] Hospital Course: Gregory Hoang was admitted to [facility] on 07/05/2017 via the Cardiology Service. During his hospital course, he was taken emergently to the wood and wood products labourer for an ongoing STEMI. An IABP was [...] not take or discontinue any prescription or orld-baq-hacsmcq medications without asking your doctor or pharmacist [...] day to have your insulin doses adjusted. [facility] Endocrine clinic office Discharge [...] Yuan Webber and/or the Cardiac Surgery Physician Analysis Reporting Developer Team may be reached at . Weight: [...] Dr. Yuan Webber. You may use a Colt Track or treadmill but avoid any pulling [...] friends, go to a movie, go to temple, etc. Heavy activities: No hunting, skiing, jogging, snow shoveling, snowmobiling, lawn mowing, swimming, golf or tennis until after your return appointment with the surgeon. Do not ride motorcycles, [employer]s tractors or horses. Avoid the use of [...] should resume a low fat, low cholesterol, [place] Heart Association Diet/Diabetic diet. Driving: No driving [...] , @ 1:20p Patient to follow-up with Dust Collector Attendant/heart failure team in one week. Appointment will be made for you. You may call [phone] Patient to follow-up with Cardiac Surgery, Dr. Yuan Webber, in ~ 4 weeks with CXR, EKG. Cardiac Rehabilitation: Gregory Hoang was seen today regarding participation in the outpatient Phase 2 Cardiac Rehabilitation at [facility]. The patient agrees to a referral to this program. The referral will be sent at discharge and the patient should be contacted by the Program within 1- 2 weeks from discharge. ?? Future Appointments and Orders Future Appointments Provider Department Dept Phone 09/07/2017 3:00 PM LAB, THREE L Lab 3L [facility] [phone] 09/07/2017 4:00 PM Luz Prescott MD Endocrinology at [place] [phone] Future Orders Complete By Expires EKG 12 Lead [EKG1 Custom] 08/14/2017 02/13/2018 Process Instructions: Scheduling Instructions: Questions: Which location will this be performed?: [place] Is a rhythm strip needed?: No If EKG Reason is Pre-op Evaluation, indicate diagnosis for surgery.: XR Chest PA & Lateral (Generic) [58633 [id number] Custom] 08/14/2017 02/13/2018 Process Instructions: Scheduling Instructions: Questions: Where will study be performed?: [facility] Portable exam?: Reason for exam and clinical history: CABG x 3 Other pertinent information: Stat read required?: Date of injury if applicable: Requested Time: Referral to Cardiac Rehab [HLC330 Custom] As directed Process Instructions: If no progress note charted, please enter Clinical details in comments. Scheduling Instructions: Questions: My question or request is: s/p CABG. Cardiac rehab at [facility] Referral to Home Health - at DISCHARGE [QHJ0046 CPT(R)] As directed Process Instructions: Scheduling Instructions: Comments: DOCUMENTATION FOR VNA SERVICES (INCLUDING THOSE PATIENTS WITH MEDICARE COVERAGE REQUIRING HOME VNA SERVICES AND/OR HOSPICE SERVICES) PATIENT'S LOCATION: Gregory Hoang [address] [place] [address] [place] [id number] (home) Telephone Information: Independent Video Producer's Name: self In discussion with the attending physician, it is certified that this patient is under their care and that they, or a Nurse Practitioner, or Physician Analysis Reporting Developer who is working directly with them, had [...] (Central Intake for [place] [employer] in [place] PHONE: [phone] FAX: [phone] RN orders: Cardiopulmonary assessment, incisional assessment, assess vital signs, assessment of rehab progress, medication management and effectiveness, home safety evaluation. Please draw INR if indicated and send result to:Dr Vicente [phone] PT ORDERS: Continue rehab for endurance, gait stability and strength with mobility and transfers. Home safety evaluation. Home exercise program if appropriate. Start of Care Date:24-48 hours after discharge SPECIAL INSTRUCTIONS: For any follow up questions, needs, or issues please call the Cardiac Surgery Office at [phone] FOR MEDICARE ONLY: (please delete this section [...] AFTER 07/17/2017 Signed: Martha Teague APRN [facility] [address] FAX [phone] Date: 07/14/2017 CC: MD Ivania Cr Betsy, PA [address] [place] [address] documented in this encounter Discharge Instructions Discharge [...] day to have your insulin doses adjusted. [facility] Endocrine clinic office Patient [...] not take or discontinue any prescription or tcfd-zfv-gpolbcd medications without asking your doctor or pharmacist [...] juice or regular (not diet) soda 6 [employer] small box of raisins 4 glucose tablets [...] day to have your insulin doses adjusted. [facility] Endocrine clinic office ? [...] Yuan Webber and/or the Cardiac Surgery Physician Analysis Reporting Developer Team may be reached at . ?? [...] Dr. Yuan Webber. You may use a Colt Track or treadmill but avoid any pulling [...] friends, go to a movie, go to temple, etc. ?? Heavy activities: No hunting, skiing, jogging, snow shoveling, snowmobiling, lawn mowing, swimming, golf or tennis until after your return appointment with the surgeon. Do not ride motorcycles, [employer] tractors or horses. Avoid the use of [...] should resume a low fat, low cholesterol, [place] Heart Association Diet/Diabetic diet. ?? Driving: No [...] @ 1:20p ?? Patient to follow-up with Dust Collector Attendant/heart failure team in one week. An appointment has been made for you, you can call [phone] ?? Patient to follow-up with Cardiac Surgery, Dr. Yuan Webber, in ~ 4 weeks with CXR, EKG. ? Cardiac Rehabilitation: Gregory Hoang??was seen today regarding participation in the outpatient Phase 2 Cardiac Rehabilitation at [facility]. ?? The patient agrees to a referral to this program.? The referral will be sent at discharge and the patient should be contacted by the Program within 1- 2 weeks from discharge. ? Future Appointments and Orders Future Appointments Provider Department Dept Phone ?? 09/07/2017 3:00 PM LAB, THREE L Lab 3L [facility] [phone] ?? 09/07/2017 4:00 PM Luz Prescott MD Endocrinology at [place] [phone] Future Orders Complete By Expires ?? EKG 12 Lead [EKG1 Custom] 08/14/2017 02/13/2018 ?? Process Instructions: ? Scheduling Instructions: ? Questions: ? Which location will this be performed?: [place] ?? Is a rhythm strip needed?: No ?? If EKG Reason is Pre-op Evaluation, indicate diagnosis for surgery.: ?? XR Chest PA & Lateral (Generic) [[id number] Custom] 08/14/2017 02/13/2018 ?? Process Instructions: ? Scheduling Instructions: ? Questions: ? Where will study be performed?: [facility] ?? Portable exam?: ?? Reason for exam and clinical history: CABG x 3 ?? Other pertinent information: ?? Stat read required?: ?? Date of injury if applicable: ?? Requested Time: ?? Referral to Cardiac Rehab [QHQ326 Custom] As directed ? Process Instructions: ?? If no progress note charted, please enter Clinical details in comments. ?? Scheduling Instructions: ? Questions: ? My question or request is: s/p CABG. Cardiac rehab at [facility] ? Arrangements for VNA/home care: As above. [...] - 07/14/2017 2:34 PM EST The patient/sales representative business courses has been provided a list of Home Health Agencies/DME vendors which serve their preferred geographic area. A letter describing our affiliations was reviewed with them and theywere educated about their right to choose where referrals are placed. Patient requests referral to [facility] PHONE: [phone] FAX: [phone] Expected date of discharge: 07/14 Referral routed to the Crinkling Machine Operator for matching with agency/vendor and to [...] day to have your insulin doses adjusted. [facility] Endocrine clinic office Kathie Carrera APRN [facility] Endocrinology Diabetes Management Pager [phone] 20 minutes of this 35 minute visit was spent with the patient in counseling on diabetes and treatment plan, reviewing all glucose and insulin data as well as relevant laboratory results with the patient, and coordination of care on the inpatient unit including nursing and primary team. Zulma Andres, RN - 07/14/2017 10:30 AM EST The patient/sales representative business courses has been provided a list of Home Health Agencies/DME vendors which serve their preferred geographic area. A letter describing our affiliations was reviewed with them and theywere educated about their right to choose where referrals are placed. Patient requests referral to : Yasmani Munguia ([facility] [place] [employer]-is in [place] PHONE: [phone] FAX: [phone]. Expected date of discharge: 07/14/17 Referral routed to the Crinkling Machine Operator for matching with agency/vendor and to [...] #6 s/p CABG X3. FSBG 80 at [place], reports no symptoms but did drink some [...] Will continue to follow Katerin Azul APRN [facility] Endocrinology Diabetes Management Pager [phone] minutes of this 25 minute visit [...] of infiltration/extravasation Discussed plan of care with SOLUTION DESIGNER and RN. Elevate exrtemity and apply intermittent Warm compresses. Name of MD contacted Dr. Shaw Brown 07/13/2017 @ 0607 Name of RN contacted Ale Rangel RN Name of Pharmacist if consulted NA Name of Plastics MD ( if consulted) NA (Mandatory photo for infiltrations/ extravasations scoring a stage 2 or greater, but recommended forstage 1)( include measuring tape and identifier in the photo) FILING CLERK CARING FOR THIS PATIENT WILL CONTINUE TO [...] measuring tape and identifier in the photo) FILING CLERK CARING FOR THIS PATIENT WILL CONTINUE TO [...] regard to both infiltrates addressed by this advertising copy writer.All of Mr. Hoang's responses were entirely appropriate. Images of infiltrates attached here. Martha Sharp APRN - 07/13/2017 8:01 AM EST Cardiac Surgery Progress Note: ID: [id number] 72 year old male POD#6 s/p CABGx3 [...] ?? I have met with the patient/sales representative business courses to discuss discharge planning needs. I have provided the [facility], Office of Care Management letter from the Manager Service Desk pertaining to rehab referrals. I have also provided a letter describing our affiliations within the [facility] and educated them about their right to choose where referrals are placed. ?? I reviewed the different levels of rehab including SNF, swing, acute and LTAC with the patient/sales representative business courses. ?? The patient/sales representative business courses has been provided a list of facilities within their preferred geographic area. ?? I have requested that the patient/sales representative business courses provide at least three choices for referral. ?? The patient/sales representative business courses have requested referrals to: ?? 1. . ?? 2. [place] ?? 3. More to be entered ?? Expected date of discharge: 07/14 Note routed to Crinkling Machine Operator who will communicate referrals to facilities [...] hours. If BG remains greater than 240, [id number] units (no more than three times) & [...] hours. If BG remains greater than 240, [id number] units (no more than three times) & call for new basal insulin orders. ??If less than 240 after two hours, give no insulin and resume prior schedule. Will continue to follow Katerin Patel. STACIE Azul [facility] Endocrinology Diabetes Management Pager [phone] 20 minutes of this 35 minute visit was spent with the patient in counseling on diabetes and treatment plan, reviewing all glucose and insulin data as well as relevant laboratory results with the patient, and coordination of care on the inpatient unit including nursing and primary team. Makayla Stevenson APRN - 07/12/2017 9:52 AM EST Cardiac Surgery Progress Note: ID: [id number] 72 year old male POD#5 s/p CABGx3 [...] 07/11/2017 7:18 PM EST Patient arrived from [facility]. VSS. MSI dressing pulled off with fresh [...] hours. If BG remains greater than 240, [id number] units (no more than three times) & [...] AM EST Cardiac Surgery Progress Note: ID: [id number] 72 year old male POD#4 s/p CABGx3 [...] hours. If BG remains greater than 240, eazavp32 units (no more than three times) & [...] AM EST Cardiac Surgery Progress Note: ID: [id number] 72 year old male POD#3 s/p CABGx3 [...] Gas) No results found for: PHART, PO2ART, GFZ1OCH Assessment/Plan: 72 year old male POD#3 s/p [...] Encounter Note Patient Name: Gregory Hoang : [id number] MR#: [id number] Admit Date: 07/05/2017 4:20 PM Hospital Day 4 days Narrative: Patient was sitting in chair, hugging heart pillow, opened his eyes, nodding to come into room Assessment: Patient was sleepy. Intervention and Outcome: Introduced low altitude air defense officer services and patient reached his hand out in appreciation. Follow-up: Claim Approver remains available for support. Time in Direct [...] 10:45 AM EST Report given to staff accountant to cover care Maddison Cee PA - 07/09/2017 9:00 AM EST Cardiac Surgery Progress Note: ID: [id number] 72 year old male POD#2 s/p CABGx3 [...] Attending Surgeon on rounds. Signed: STEPHANIE Iqbal [facility] Section of Cardiac Surgery Date: 07/09/2017 Magnolia Santiago [facility] - 07/09/2017 1:33 AM EST [...] when IABP d/c'ed. Gretchen Carolina, PT Pager [phone] Maddison Cee PA - 07/08/2017 11:27 AM EST Cardiac Surgery Progress Note: ID: [id number] 72 year old male POD#1 s/p CABGx3 [...] Attending Surgeon on rounds. Signed: STEPHANIE Iqbal [facility] Section of Cardiac Surgery Date: 07/08/2017 [...] unit. NICK SEGAL MD 07/08/2017 Jay Munoz [facility] - 07/08/2017 4:33 AM EST [...] in place in R femoral. No hematoma. WEATHER STRIP MECHANIC- Intact Psych- Anxious Skin- Dry, no peripheral [...] Dinorah Ramírez MD, PGY-1 Cardiology S1 (pgr. 301) Daphne Shahid MD - 07/06/2017 10:18 PM [...] intact. IABP in place in R femoral. WEATHER STRIP MECHANIC- Intact Psych- Anxious Skin- Dry, no peripheral [...] Denies any discomfort at this time Dr. Wbeber visited and stated will be back later [...] Dinorah Ramírez MD, PGY-1 Cardiology S1 (pgr. [phone]) . CARDIOLOGY ATTENDING NOTE Patient: Gregory Hoang [...] note for details. DAPHNE SHAHID MD Pager [phone] Jet Mckenna MD - 07/05/2017 6:48 PM EST Preliminary Cardiac Catheterization Procedure Note: Procedure(s) performed: Left heart cath, IABP insertion Access: Right CHIEF I DISPATCHER-->8fr IABP A time-out was conducted prior to [...] effect. Heparin gtt maintained. Pt transferred to wood and wood products labourer. documented in this encounter H&P Notes Daphne Shahid MD - 07/05/2017 6:08 PM EST CARDIOLOGY HISTORY & PHYSICAL EXAM Date of Admission: 07/05/2017 ( Hospital Day 0 days ) Responsible Attending: Daphne Shahid MD PCP: Lovely Vicente MD PCP#: [phone] Patient Active Problem List Diagnosis Code ??? [...] a 72 y.o. male w/ a h/o MAIRA VICTORIA (on CPAP), DM2, COPD, HTN, HLD, [...] No significant valvular disease. Taken to the wood and wood products labourer urgently for ongoing STEMI. [facility] Labs: INR 1.0 WBC 5.88 Hgb 12.9 [...] monitor I/O - s/p lasix in the wood and wood products labourer, redose to aim net neg 1L by [...] - ISS - hold metformin - f/u [facility] #Home Meds - continue levothyroxine 175mcg - CPAP at night # Routine - DVT PPx: heparin drip - Diet: NPO - Code Status: FULL - Dispo: [facility] Cedric Bey MD Internal Medicine, PGY-2 Cardiology S1, Team Pager # [phone] CARDIOLOGY ATTENDING NOTE Patient: Gregory Hoang Date [...] amenable for PCI. DAPHNE SHAHID MD Pager [phone] documented in this encounter Miscellaneous Notes Consult Note - Daphne Shahid MD - 07/14/2017 11:46 AM EST Heart Failure Service Inpatient Consult Note Gregory Hoang Date of : 1945 Age: 72 y.o. Today's date: 07/14/17 PCP: Lovely Vicente MD IT PROGRAM MANAGER: None Place of Service: [facility] Reason for Consult: Dr. [...] [facility] MA[facility] OR ??? PRO CABG, ARTERIAL, SINGLE N/A 07/07/2017 @CABG, USING ARTERIAL GRAFT;SINGLE ARTERIAL GRAFT (WRVU 33.75) performed by Yuan Webber MD at [facility] MAIN OR ??? PRO CABG, ARTERY-VEIN, TWO N/A 07/07/2017 @CABG, TWO VENOUS GRAFTS & ARTERIAL GRAFT (WRVU 7.93) performed by Yuan Webber MD at [facility] MAIN OR ??? PRO COLONOSCOPY, REMV LESN, SNARE 01/16/2014 COLONOSCOPY, POLYPECTOMY, REMOVAL LESION BY SNARE performed by Nohemi Jaimes MD at [facility] ENDOSCOPY ??? PRO ENDOSCOPY W/VIDEO-ASST VEIN HARVEST, CABG Right 07/07/2017 ENDOSCOPIC HARVEST VEIN(S) FOR CABG (WRVU 0.31) performed by Yuan Webber MD at [facility] MAIN OR ??? PRO THYROIDECTOMY 03/28/2013 THYROIDECTOMY, TOTAL OR COMPLETE performed by Manny Mcknight MD at [facility] MAIN OR Outpt Meds: Current Outpatient [...] following studies: EKG 07/14/17: NSR 75 bpm, CULLET WASHER anterior infarct, LAD CXR 07/11/17: FINDINGS: Sternotomy wires. The patient has been extubated, left chest tube removed, and [place]-Suzi catheter removed since the 07/07/2017 study. Atelectasis [...] was discussed with Zehra. Jaden Kelley MD Field Service Coordinator Pager [phone] CARDIOLOGY ATTENDING NOTE Patient: Gregory Hoang Date [...] heart failure clinic. DAPHNE SHAHID MD Pager [phone] Plan of Care - Alden Chavarria, FLOOR LAYER HELPER - 07/14/2017 11:35 AM EST Problem: [...] Discharge Disposition: home with assist Alden Chavarria, FLOOR LAYER HELPER Pager: [phone] Inpatient Physical Therapy Problem: Acute Rehab Services [...] sit/sit to supine -- Bed Mobility Goal, [place] Level supervision required -- Bed Mobility Goal, [...] - 3 days -- Gait Training Goal, [place] Level supervision required -- Gait Training Goal, [...] days -- Transfer Training Goal, Activity Type mzh-yv-glmqj/sljbg-qo-ngf;icp-yg-ipeog/tqzqe-yq-phh;toilet -- Transfer Train Goal, [place] Level supervision required -- Transfer Training Goal, [...] keeping present for 2 days per family. Brass Sorter noted of frustrations, house keeping sent to room. Patient offered showered twice, refused. at bedside, frustrated that shower not complete, informed that patient had refused several times. requesting to see METAL CNC OPERATOR, paged sent to Martha, will come to bedside (middle of consult). not willing to wait, Martha notified that family had gone home. Encouraged to come for morning rounds a t 8am. Diabetes team at bedside - insulin adjustments made. Call cabello in reach. Continue to monitor. PLAN MOVING FORWARD: Ambulate, dressing changes BID, Please change drsg at 4am per Martha METAL CNC OPERATOR request. INDIVIDUALIZED FALL PREVENTION INTERVENTIONS: Patient-specific [...] levels on the lower side, 60ml of [place] juice given after a FS of 80. [...] 07/13/17 0502 Interdisciplinary Rounds/Family Conf Participants case briefer;dietitian/nutrition services;nursing;occupational therapy;patient;pharmacy;physical therapy;physician Plan of Care - [...] Anticipated Discharge Disposition: home with assist Pager: [phone] CLARISSA SEGAL, PT 07/12/2017 Physical Therapy Rehabilitation [...] to sit/sit to supine Bed Mobility Goal, [place] Level supervision required Bed Mobility Goal, Additional Goal adheres to psternal precautions for transfer Goal: Gait Training Goal Stand Alone Therapy Goal Outcome: Ongoing (Interventions Implemented as Appropriate) 07/12/17 1225 Gait Training Goal Gait Training Goal, Date Established 07/12/17 Gait Training Goal, Time to Achieve 2 - 3 days Gait Training Goal, [place] Level supervision required Gait Training Goal, Assist [...] 3 days Transfer Training Goal, Activity Type ait-zc-cwqoc/htfcr-or-seh;qvk-qn-cvakq/iydnh-dl-idf;toilet Transfer Train Goal, [place] Level supervision required Transfer Training Goal, Additional Goal adheres to sternal precautions during transfer Consult Note - Octavia Vaughn RN - 07/12/2017 10:50 AM EST [facility] CARDIAC REHABILITATION Gregory Hoang was seen today regarding participation in the outpatient Phase 2 Cardiac Rehabilitation at [facility]. The patient agrees to a referral to [...] IV site, amio to other piv and CERTIFIED PHARMACY TECH at bedside to help assess, IV removed. [...] Outcome: Ongoing (Interventions Implemented as Appropriate) 07/11/17199907/11/17200907/12/17 [facility] Daily Care Interventions Self-Care Promotion -- -- [...] staff, he stood and marched in place. [place] weak, wanting to sit back down. Remained [...] Outcome: Ongoing (Interventions Implemented as Appropriate) 07/05/17 6919 Mutuality/Individual Preferences What Anxieties, Fears or Concerns [...] Health/Prescription Coverage: Primary Insurance: MEDICARE Secondary Insurance: [employer] [place] Prescription Coverage: yes [facility]acy[facility] [place] Other: none Primary Care Provider: Lovely Vicente MD [phone] Patient/Caregiver Goals of Treatment:live and get my breath back Potential Needs for Transition of Care: Rehab/SNF: [facility]; [facility] Home Health: NA DME: TBD Dialysis: na Community Resources: available Transportation: yes Other: none Anticipated Barriers to Discharge/Special Considerations: none Plan: Likely SNF Rehab before home A member of the Care Management team will continue to monitor progress, follow for continuity of care and assist with transition of care planning. ERLIN Weiss Pager: [phone] Consult Note - Katerin Azul RN - [...] potential to d/c gtt and start CF. long-term diabetes care: Medications - Outpatient treatment regimen recommendations pending based on the hospital course. Monitoring - continue BG tid ac & hs Diet - low fat/low carb diet Exercise - weight-bearing exercise 30 min/day, as tolerated Thank you for allowing us to provide care for your patient W/E coverage, Dr. Jeane Tatum, pager [phone] Katerin Patel. STACIE Azul Endocrinology Diabetes Management Pager [phone] Plan of Care - Stephanie Godoy RN [...] Webber MD - 07/07/2017 6:27 PM EST [facility] Operative Note Patient Name: Gregory Hoang : [id number] MR#: [id number] Case Date: 07/07/2017 Surgeon: Surgeon(s) and Role: * Yuan Webber MD - Primary * Michael Drake PA - Physician Analysis Reporting Developer * Linda Flores PA - Physician Analysis Reporting Developer Preoperative diagnosis: 3VD Postoperative diagnosis: CAD, severe [...] Operative Note Patient Name: Gregory Hoang : [id number] MR#: [id number] Case Date: 07/07/2017 Surgeon: Surgeon(s) and Role: * Yuan Webber MD - Primary * Michael Drake PA - Physician Analysis Reporting Developer * Linda Flores PA - Physician Analysis Reporting Developer Preoperative diagnosis: 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 Pt [...] Vitaliy Nobles MD [facility] ER DR CARDIOLOGY [place], [place] [address] (Wo rk) Scheduled Orders Name [...] procedure are i n the results section. FLIGHT OPERATIONS MANAGER SCAN 07/15/2017 12:00 Res ults for this [...] Routine 07/08/2017 4:00 Results f or this ([facility]/CGP) AM EST procedure are [...] Yes 07/07/2017 1:35 [facility] 0.31[facility] @CABG, TWO VENOUS GRAFTS Yes 07/07/2017 1:35 CAD & ARTERIAL GRAFT ([facility] EST 7.93) @CABG, USING ARTERIAL Yes 07/07/2017 1:35 CAD GRAFT;SINGLE ARTERIAL PM EST [facility]RAFT ([facility] 33.75) PREPARE COAG FACTORS STAT 07/07/2017 1:25 [...] Routine 07/06/2017 7:40 Results f or this ([facility]) PM EST procedure are [...] Timed 07/06/2017 2:10 Results f or this ([facility]/CG) PM EST procedure are i n the [...] section. TYPE AND SCREEN Routine 07/06/2017 12:00 ([facility]P/SHANDA) PM EST APTT STAT [...] Routine 07/06/2017 8:10 Results f or this ([facility]) AM EST procedure are [...] Routine 07/06/2017 2:20 Results f or this ([facility]) AM EST procedure are [...] Routine 07/05/2017 8:20 Results f or this ([facility]) PM EST procedure are [...] Timed 07/05/2017 4:55 Results f or this ([facility]) PM EST procedure are i n the [...] [place] at 08/19/2017 10:30 AM Martha Teague MANAGER HOSPICE IMG DX ORDERABLES SCAN DOC: FLIGHT OPERATIONS MANAGER (07/15/2017 12:00 AM EST) Narrative 07/15/2017 12:00 [...] POC Glucose 186 65 - 199 [facility] mg/dL [facility] LABORATORY Comment: Supplemental ranges: <140 mg/dL before meals <180 mg/dL all other times of the day Specimen Anatomical Collection Method Collection Time Receive d Time (Source) Location / / Volume Laterality Blood specimen 07/14/2017 11:56 7 (specimen) AM EST 11:56 AM EST Yuan Webber MD POINT OF CARE TEST ORDERABLE S Performing Organization Address City/State/ZIP Code Phon e Number [address] POCT Glucose (07/14/2017 7:52 AM EST) athologist Signature POC Glucose 126 65 - 199 [facility] mg/dL [facility] Comment: Supplemental ranges: <140 mg/dL before meals <180 mg/dL all other times of the day Specimen Anatomical Collection Method Collection Time Receive d Time (Source) Location / / Volume Laterality Blood specimen 07/14/2017 7:52 AM 017 7:52 (specimen) EST AM EST Yuan Webber MD POINT OF CARE TEST ORDERABLE S Performing Organization Address City/[facility]/[place] [address] (ABNORMAL) Prothrombin Time (07/14/2017 4:46 AM EST) P athologist Signature PT 26.4 (H) 11.8 - 14.0 [facility] LABORATORY INR 2.4 (H) 0.9 - 1.1 [facility] [...] Wilson APRN HEMATOLOGY ORDERABLES Performing Organization Address City/[facility]/ZIP Code Phon e Number [address] Potassium (07/14/2017 4:46 AM EST) athologist Signature Potassium 4.3 3.5 - 5.0 [facility]/L [facility] Comment: Please note: ??Patients [...] Wilson APRN CHEMISTRY ORDERABLES Performing Organization Address City/[facility]/[place] [address] POCT Glucose (07/14/2017 4:34 AM EST) athologist Signature POC Glucose 115 65 - 199 [facility]dL [facility] Comment: Supplemental ranges: <140 mg/dL before meals <180 mg/dL all other times of the day Specimen Anatomical Collection Method Collection Time Receive d Time (Source) Location / / Volume Laterality Blood specimen 07/14/2017 4:34 AM 017 4:34 (specimen) EST AM EST Yuan Webber MD POINT OF CARE TEST ORDERABLE S Performing Organization Address City/[facility]/[place] [address] POCT Glucose (07/13/2017 11:33 PM EST) athologist Signature POC Glucose 132 65 - 199 [place] [facility] mg/dL [facility] Comment: Supplemental ranges: <140 mg/dL before meals <180 mg/dL all other times of the day Specimen Anatomical Collection Method Collection Time Receive d Time (Source) Location / / Volume Laterality Blood specimen 07/13/2017 11:33 7 (specimen) PM EST 11:33 PM EST Yuan Webber MD POINT OF CARE TEST ORDERABLE S Performing Organization Address City/State/ZIP Code Phon e Number [address] POCT Glucose (07/13/2017 9:25 PM EST) athologist Signature POC Glucose 121 65 - 199 [place] [facility] mg/dL [facility] Comment: Supplemental ranges: <140 mg/dL before meals <180 mg/dL all other times of the day Specimen Anatomical Collection Method Collection Time Receive d Time (Source) Location / / Volume Laterality Blood specimen 07/13/2017 9:25 PM 017 9:25 (specimen) EST PM EST Yuan Webber MD POINT OF CARE TEST ORDERABLE S Performing Organization Address City/State/ZIP Code Phon e Number [address] POCT Glucose (07/13/2017 4:55 PM EST) athologist Signature POC Glucose 79 65 - 199 [facility] mg/dL [facility] Comment: Supplemental ranges: <140 mg/dL before meals <180 mg/dL all other times of the day Specimen Anatomical Collection Method Collection Time Receive d Time (Source) Location / / Volume Laterality Blood specimen 07/13/2017 4:55 PM 017 4:55 (specimen) EST PM EST Yuan Webber MD POINT OF CARE TEST ORDERABLE S Performing Organization Address City/State/[place] [address] POCT Glucose (07/13/2017 11:16 AM EST) athologist Signature POC Glucose 163 65 - 199 [place] [facility] mg/dL [facility] Comment: Supplemental ranges: <140 mg/dL before meals <180 mg/dL all other times of the day Specimen Anatomical Collection Method Collection Time Receive d Time (Source) Location / / Volume Laterality Blood specimen 07/13/2017 11:16 7 (specimen) AM EST 11:16 AM EST Yuan Webber MD POINT OF CARE TEST ORDERABLE S Performing Organization Address City/State/[place] [address] POCT Glucose (07/13/2017 8:07 AM EST) athologist Signature POC Glucose 96 65 - 199 [facility] mg/dL [facility] Comment: Supplemental ranges: <140 mg/dL before meals <180 mg/dL all other times of the day Specimen Anatomical Collection Method Collection Time Receive d Time (Source) Location / / Volume Laterality Blood specimen 07/13/2017 8:07 AM 017 8:07 (specimen) EST AM EST Yuan Webber MD POINT OF CARE TEST ORDERABLE S Performing Organization Address City/State/ZIP Code Phon e Number [address] (ABNORMAL) Prothrombin Time (07/13/2017 4:26 AM EST) athologist Signature PT 20.8 (H) 11.8 - 14.0 [facility] LABORATORY INR 1.8 (H) 0.9 - 1.1 [facility] [...] Organization Address City/State/[place] [address] (ABNORMAL) Basic Metabolic Panel (non-fasting) (07/13/2017 4:26 AM EST) athologist Signature Glucose Lvl 95 65 - 199 [facility] Comment: Diabetes: >=200 mg/dL plus symp toms BUN 25 (H) 10 - 20 mg/dL [facility] Creatinine 1.19 0.80 - 1.50 mg/dL [facility] Sodium 143 135 - 145 mmol/L [facility] Potassium 3.7 3.5 - 5.0 mmol/L [facility] Comment: Please note: ??Patients with WBC >100,00 0 may have falsely elevated Potassium levels. ??For accurate Potassium quantif ication in these patients send serum separator tube (gold top) for subsequent determinations. ??Contact the Clinical Chemistry Laboratory if there are any qu estions. Chloride 104 98 - 107 mmol/L [facility] CO2 26 22 - 31 mmol/L [facility] Anion Gap 13 5 - 15 mmol/L [facility] Calcium 7.7 (L) 8.5 - 10.5 mg/dL [facility] Estimated GFR 60 >=60 [facility] Comment: The reported eGFR should be multiplied b y 1.2 for patients. The MDRD is not an appropriate measure o f renal function for patients with body mass extremes or in patients with acute kidney failure. http://[employer]/DHnkdep http://biNu/DHMCnkf Specimen Anatomical Collection Method Collection Time Receive d Time (Source) Location / / Volume Laterality Blood specimen 07/13/2017 4:26 AM 017 4:46 (specimen) EST AM EST Resulting Agency Comment Spec In Lab Makayla Wilson APRN CHEMISTRY ORDERABLES Performing Organization Address City/State/[place] [address] POCT Glucose (07/13/2017 3:52 AM EST) P athologist Signature POC Glucose 93 65 - 199 [facility] mg/dL [facility] Comment: Supplemental ranges: <140 mg/dL before meals <180 mg/dL all other times of the day Specimen Anatomical Collection Method Collection Time Receive d Time (Source) Location / / Volume Laterality Blood specimen 07/13/2017 3:52 AM 12/19/2 017 3:52 (specimen) EST AM EST Yuan Webber MD POINT OF CARE TEST ORDERABLE S Performing Organization Address City/State/ZIP Code Phon e Number [address] POCT Glucose (07/13/2017 12:21 AM EST) athologist Signature POC Glucose 80 65 - 199 [place] mg/dL [facility] Comment: Supplemental ranges: <140 mg/dL before meals <180 mg/dL all other times of the day Specimen Anatomical Collection Method Collection Time Receive d Time (Source) Location / / Volume Laterality Blood specimen 07/13/2017 12:21 7 (specimen) AM EST 12:21 AM EST Yuan Webber MD POINT OF CARE TEST ORDERABLE S Performing Organization Address City/State/ZIP Code Phon e Number [address] POCT Glucose (07/12/2017 8:22 PM EST) athologist Signature POC Glucose 119 65 - 199 [place] [facility] mg/dL [facility] Comment: Supplemental ranges: <140 mg/dL before meals <180 mg/dL all other times of the day Specimen Anatomical Collection Method Collection Time Receive d Time (Source) Location / / Volume Laterality Blood specimen 07/12/2017 8:22 PM 017 8:22 (specimen) EST PM EST Yuan Webber MD POINT OF CARE TEST ORDERABLE S Performing Organization Address City/State/[place] [address] POCT Glucose (07/12/2017 4:02 PM EST) athologist Signature POC Glucose 114 65 - 199 [place] [facility] mg/dL [facility] Comment: Supplemental ranges: <140 mg/dL before meals <180 mg/dL all other times of the day Specimen Anatomical Collection Method Collection Time Receive d Time (Source) Location / / Volume Laterality Blood specimen 07/12/2017 4:02 PM 017 4:02 (specimen) EST PM EST Yuan Webber MD POINT OF CARE TEST ORDERABLE S Performing Organization Address City/State/ZIP Code Phon e Number [address] POCT Glucose (07/12/2017 11:28 AM EST) athologist Signature POC Glucose 164 65 - 199 [facility] Comment: Supplemental ranges: <140 mg/dL before meals <180 mg/dL all other times of the day Specimen Anatomical Collection Method Collection Time Receive d Time (Source) Location / / Volume Laterality Blood specimen 07/12/2017 11:28 7 (specimen) AM EST 11:28 AM EST Yuan Webber MD POINT OF CARE TEST ORDERABLE S Performing Organization Address City/State/ZIP Code Phon e Number [address] POCT Glucose (07/12/2017 7:34 AM EST) athologist Signature POC Glucose 109 65 - 199 [facility] mg/dL [facility] Comment: Supplemental ranges: <140 mg/dL before meals <180 mg/dL all other times of the day Specimen Anatomical Collection Method Collection Time Receive d Time (Source) Location / / Volume Laterality Blood specimen 07/12/2017 7:34 AM 017 7:34 (specimen) EST AM EST Yuan Webber MD POINT OF CARE TEST ORDERABLE S Performing Organization Address City/State/[place] [address] (ABNORMAL) Basic Metabolic Panel (non-fasting) (07/12/2017 4:11 AM EST) athologist Signature Glucose Lvl 92 65 - 199 [facility] mg/dL [facility] Comment: Diabetes: >=200 mg/dL plus symp toms BUN 31 (H) 10 - 20 mg/dL [facility] Creatinine 1.23 0.80 - 1.50 mg/dL [facility] Sodium 145 135 - 145 mmol/L [facility] Potassium Not Perf 3.5 - 5.0 mmol/L [facility] Comment: Duplicate order Please note: ??Patients with WBC >100,00 0 may have falsely elevated Potassium levels. ??For accurate Potassium quantif ication in these patients send serum separator tube (gold top) for subsequent determinations. ??Contact the Clinical Chemistry Laboratory if there are any qu estions. Chloride 106 98 - 107 mmol/L [facility] CO2 Not Perf 22 - 31 mmol/L [facility] Comment: Add-on request. Sample too old to perform test. Anion Gap Not Calculated 5 - 15 mmol/L [facility] Calcium 8.1 (L) 8.5 - 10.5 mg/dL [facility] Estimated GFR 58 (L) >=60 [facility] Comment: The reported eGFR should be multiplied b y 1.2 for patients. The MDRD is not an appropriate measure o f renal function for patients with body mass extremes or in patients with acute kidney failure. http://biNu/DHnkdep http://biNu/DHMCnkf Specimen Anatomical Collection Method Collection Time Receive d Time (Source) Location / / Volume Laterality Blood specimen 07/12/2017 4:11 AM 017 8:57 (specimen) EST AM EST Resulting Agency Comment Spec In Lab Makayla Wilson STACIE CHEMISTRY ORDERABLES Performing Organization Address City/State/[place] [address] (ABNORMAL) Prothrombin Time (07/12/2017 4:11 AM EST) P athologist Signature PT 15.4 (H) 11.8 - 14.0 [facility] LABORATORY INR 1.2 (H) 0.9 - 1.1 [facility] [...] Wilson APRN HEMATOLOGY ORDERABLES Performing Organization Address City/[facility]/[place] [address] Potassium (07/12/2017 4:11 AM EST) P athologist Signature Potassium 3.8 3.5 - 5.0 [facility] mmol/L [facility] Comment: Please note: ??Patients [...] Wilson STACIE CHEMISTRY ORDERABLES Performing Organization Address City/[facility]/[place] [address] POCT Glucose (07/12/2017 4:10 AM EST) P athologist Signature POC Glucose 90 65 - 199 [facility] Comment: Supplemental ranges: <140 mg/dL before meals <180 mg/dL all other times of the day Specimen Anatomical Collection Method Collection Time Receive d Time (Source) Location / / Volume Laterality Blood specimen 07/12/2017 4:10 AM 017 4:10 (specimen) EST AM EST Yuan Webber MD POINT OF CARE TEST ORDERABLE S Performing Organization Address City/[facility]/[place] [address] POCT Glucose (07/11/2017 11:57 PM EST) athologist Signature POC Glucose 98 65 - 199 [facility] mg/dL [facility] Comment: Supplemental ranges: <140 mg/dL before meals <180 mg/dL all other times of the day Specimen Anatomical Collection Method Collection Time Receive d Time (Source) Location / / Volume Laterality Blood specimen 07/11/2017 11:57 7 (specimen) PM EST 11:57 PM EST Yuan Webber MD POINT OF CARE TEST ORDERABLE S Performing Organization Address City/State/[place] [address] POCT Glucose (07/11/2017 8:32 PM EST) athologist Signature POC Glucose 146 65 - 199 [facility] Comment: Supplemental ranges: <140 mg/dL before meals <180 mg/dL all other times of the day Specimen Anatomical Collection Method Collection Time Receive d Time (Source) Location / / Volume Laterality Blood specimen 07/11/2017 8:32 PM 017 8:32 (specimen) EST PM EST Yuan Webber MD POINT OF CARE TEST ORDERABLE S Performing Organization Address City/State/[place] [address] XR Chest PA & [...] e xtubated, left chest tube removed, and [place]-Suzi catheter removed since the study. Atelectasis at [...] e xtubated, left chest tube removed, and [place]Suzi catheter removed since the study. Atelectasis at [...] POC Glucose 223 (H) 65 - 199 [facility] mg/dL [facility] Comment: Supplemental ranges: <140 mg/dL before meals <180 mg/dL all other times of the day Specimen Anatomical Collection Method Collection Time Receive d Time (Source) Location / / Volume Laterality Blood specimen 07/11/2017 4:05 PM 017 4:05 (specimen) EST PM EST Yuan Webber MD POINT OF CARE TEST ORDERABLE S Performing Organization Address City/State/[place] [address] POCT Glucose (07/11/2017 11:55 AM EST) athologist Signature POC Glucose 176 65 - 199 [facility] mg/dL [facility] Comment: Supplemental ranges: <140 mg/dL before meals <180 mg/dL all other times of the day Specimen Anatomical Collection Method Collection Time Receive d Time (Source) Location / / Volume Laterality Blood specimen 07/11/2017 11:55 7 (specimen) AM EST 11:55 AM EST Yuan Webber MD POINT OF CARE TEST ORDERABLE S Performing Organization Address City/State/ZIP Code Phon e Number [address] POCT Glucose (07/11/2017 7:53 AM EST) athologist Signature POC Glucose 189 65 - 199 [place] [facility] mg/dL [facility] Comment: Supplemental ranges: <140 mg/dL before meals <180 mg/dL all other times of the day Specimen Anatomical Collection Method Collection Time Receive d Time (Source) Location / / Volume Laterality Blood specimen 07/11/2017 7:53 AM 017 7:53 (specimen) EST AM EST Yuan Webber MD POINT OF CARE TEST ORDERABLE S Performing Organization Address City/State/[place] [address] POCT Glucose (07/11/2017 4:22 AM EST) athologist Signature POC Glucose 151 65 - 199 [place] [facility] mg/dL [facility] Comment: Supplemental ranges: <140 mg/dL before meals <180 mg/dL all other times of the day Specimen Anatomical Collection Method Collection Time Receive d Time (Source) Location / / Volume Laterality Blood specimen 07/11/2017 4:22 AM 017 4:22 (specimen) EST AM EST Yuan Webber MD POINT OF CARE TEST ORDERABLE S Performing Organization Address City/State/[place] [address] Potassium (07/11/2017 2:20 AM EST) athologist Signature Potassium 4.5 3.5 - 5.0 [facility] mmol/L [facility] Comment: Please note: ??Patients [...] Webber MD CHEMISTRY ORDERABLES Performing Organization Address City/[facility]/ZIP Code Phon e Number [address] POCT Glucose (07/11/2017 12:17 AM EST) athologist Signature POC Glucose 162 65 - 199 [facility] mg/dL [facility] Comment: Supplemental ranges: <140 mg/dL before meals <180 mg/dL all other times of the day Specimen Anatomical Collection Method Collection Time Receive d Time (Source) Location / / Volume Laterality Blood specimen 07/11/2017 12:17 7 (specimen) AM EST 12:17 AM EST Yuan Webber MD POINT OF CARE TEST ORDERABLE S Performing Organization Address City/[facility]/ZIP Code Phon e Number [address] POCT Glucose (07/10/2017 8:47 PM EST) athologist Signature POC Glucose 191 65 - 199 [facility] Comment: Supplemental ranges: <140 mg/dL before meals <180 mg/dL all other times of the day Specimen Anatomical Collection Method Collection Time Receive d Time (Source) Location / / Volume Laterality Blood specimen 07/10/2017 8:47 PM 017 8:47 (specimen) EST PM EST Yuan Webber MD POINT OF CARE TEST ORDERABLE S Performing Organization Address City/[facility]/ZIP Code Phon e Number [address] POCT Glucose (07/10/2017 4:06 PM EST) athologist Signature POC Glucose 131 65 - 199 [place] mg/dL [facility] LABORATORY Comment: Supplemental ranges: <140 mg/dL before meals <180 mg/dL all other times of the day Specimen Anatomical Collection Method Collection Time Receive d Time (Source) Location / / Volume Laterality Blood specimen 07/10/2017 4:06 PM 017 4:06 (specimen) EST PM EST Yuan Webber MD POINT OF CARE TEST ORDERABLE S Performing Organization Address City/State/ZIP Code Phon e Number [address] POCT Glucose (07/10/2017 3:08 PM EST) athologist Signature POC Glucose 151 65 - 199 [place] mg/dL [facility] LABORATORY Comment: Supplemental ranges: <140 mg/dL before meals <180 mg/dL all other times of the day Specimen Anatomical Collection Method Collection Time Receive d Time (Source) Location / / Volume Laterality Blood specimen 07/10/2017 3:08 PM 017 3:08 (specimen) EST PM EST Yuan Webber MD POINT OF CARE TEST ORDERABLE S Performing Organization Address City/[facility]/[place] [address] POCT Glucose (07/10/2017 2:25 PM EST) athologist Signature POC Glucose 146 65 - 199 [place] mg/dL [facility] LABORATORY Comment: Supplemental ranges: <140 mg/dL before meals <180 mg/dL all other times of the day Specimen Anatomical Collection Method Collection Time Receive d Time (Source) Location / / Volume Laterality Blood specimen 07/10/2017 2:25 PM 017 2:25 (specimen) EST PM EST Yuan Webber MD POINT OF CARE TEST ORDERABLE S Performing Organization Address City/State/ZIP Code Phon e Number [address] POCT Glucose (07/10/2017 1:23 PM EST) athologist Signature POC Glucose 166 65 - 199 [facility] SU mg/dL [facility] LABORATORY Comment: Supplemental ranges: <140 mg/dL before meals <180 mg/dL all other times of the day Specimen Anatomical Collection Method Collection Time Receive d Time (Source) Location / / Volume Laterality Blood specimen 07/10/2017 1:23 PM 017 1:23 (specimen) EST PM EST Yuan Webber MD POINT OF CARE TEST ORDERABLE S Performing Organization Address City/State/ZIP Code Phon e Number [address] POCT Glucose (07/10/2017 11:52 AM EST) P athologist Signature POC Glucose 157 65 - 199 [place] mg/dL [facility] LABORATORY Comment: Supplemental ranges: <140 mg/dL before meals <180 mg/dL all other times of the day Specimen Anatomical Collection Method Collection Time Receive d Time (Source) Location / / Volume Laterality Blood specimen 07/10/2017 11:52 7 (specimen) AM EST 11:52 AM EST Yuan Webber MD POINT OF CARE TEST ORDERABLE S Performing Organization Address City/[facility]/ZIP Code Phon e Number [address] POCT Glucose (07/10/2017 11:01 AM EST) athologist Signature POC Glucose 158 65 - 199 [place] mg/dL [facility] LABORATORY Comment: Supplemental ranges: <140 mg/dL before meals <180 mg/dL all other times of the day Specimen Anatomical Collection Method Collection Time Receive d Time (Source) Location / / Volume Laterality Blood specimen 07/10/2017 11:01 7 (specimen) AM EST 11:01 AM EST Yuan Webber MD POINT OF CARE TEST ORDERABLE S Performing Organization Address City/State/[place] [address] POCT Glucose (07/10/2017 9:54 AM EST) P athologist Signature POC Glucose 160 65 - 199 [place] mg/dL [facility] LABORATORY Comment: Supplemental ranges: <140 mg/dL before meals <180 mg/dL all other times of the day Specimen Anatomical Collection Method Collection Time Receive d Time (Source) Location / / Volume Laterality Blood specimen 07/10/2017 9:54 AM 017 9:54 (specimen) EST AM EST Yuan Webber MD POINT OF CARE TEST ORDERABLE S Performing Organization Address City/State/ZIP Code Phon e Number [address] POCT Glucose (07/10/2017 8:58 AM EST) P athologist Signature POC Glucose 183 65 - 199 [place] mg/dL [facility] LABORATORY Comment: Supplemental ranges: <140 mg/dL before meals <180 mg/dL all other times of the day Specimen Anatomical Collection Method Collection Time Receive d Time (Source) Location / / Volume Laterality Blood specimen 07/10/2017 8:58 AM 017 8:58 (specimen) EST AM EST Yuan Webber MD POINT OF CARE TEST ORDERABLE S Performing Organization Address City/[facility]/ZIP Code Phon e Number [address] POCT Glucose (07/10/2017 8:01 AM EST) athologist Signature POC Glucose 173 65 - 199 [place] mg/dL [facility] LABORATORY Comment: Supplemental ranges: <140 mg/dL before meals <180 mg/dL all other times of the day Specimen Anatomical Collection Method Collection Time Receive d Time (Source) Location / / Volume Laterality Blood specimen 07/10/2017 8:01 AM 017 8:01 (specimen) EST AM EST Yuan Webber MD POINT OF CARE TEST ORDERABLE S Performing Organization Address City/[facility]/ZIP Code Phon e Number [address] POCT Glucose (07/10/2017 7:05 AM EST) athologist Signature POC Glucose 166 65 - 199 [place] mg/dL [facility] LABORATORY Comment: Supplemental ranges: <140 mg/dL before meals <180 mg/dL all other times of the day Specimen Anatomical Collection Method Collection Time Receive d Time (Source) Location / / Volume Laterality Blood specimen 07/10/2017 7:05 AM 017 7:05 (specimen) EST AM EST Yuan Webber MD POINT OF CARE TEST ORDERABLE S Performing Organization Address City/State/ZIP Code Phon e Number [address] POCT Glucose (07/10/2017 6:00 AM EST) P athologist Signature POC Glucose 162 65 - 199 [facility] mg/dL [facility] LABORATORY Comment: Supplemental ranges: <140 mg/dL before meals <180 mg/dL all other times of the day Specimen Anatomical Collection Method Collection Time Receive d Time (Source) Location / / Volume Laterality Blood specimen 07/10/2017 6:00 AM 017 6:00 (specimen) EST AM EST Yuan Webber MD POINT OF CARE TEST ORDERABLE S Performing Organization Address City/State/ZIP Code Phon e Number [address] (ABNORMAL) Differential, Automated (07/10/2017 4:28 AM EST) Patholo gist Method Time Signature Neutrophils % 87.9 % [facility] LABORATORY Neutr Abs (ANC) 10.70 (H) 1.70 - [facility] 6.10 [facility] x10(3)/[facility] L LABORATORY Lymphocytes % 3.9 % [facility] LABORATORY Lymphocytes Abs 0.5 (L) 0.9 - 3.2 [facility] x10(3)/[facility] LABORATORY Monocytes % 7.0 % [facility] LABORATORY Monocyte Abs 0.8 0.3 - 0.9 [facility] x10(3)/[facility] LABORATORY Eosinophils % 0.3 % [facility] LABORATORY Eosinophils Abs 0.0 0.0 - 0.4 [facility] x10(3)/[facility] LABORATORY Basophils % 0.2 % [facility] LABORATORY Basophils Abs 0.0 0.0 - 0.1 [facility] x10(3)/[facility] LABORATORY Immature Gran % 0.70 % [facility] [...] Abs 0.08 (H) 0.00 - 0.04 x10(3)/[facility] LABORATORY Specimen Anatomical Collection Method Collection Time Receive d Time (Source) Location / / Volume Laterality Blood specimen 07/10/2017 4:28 AM 017 4:36 (specimen) EST AM EST Resulting Agency Comment Spec In Lab Yuan Webber MD HEMATOLOGY ORDERABLES Performing Organization Address City/State/[place] [address] (ABNORMAL) Hemogram (07/10/2017 4:28 AM EST) Analysis Performed At Patho logist Time Signature WBC 12.2 (H) 4.0 - 9.5 [facility] x10(3)/[facility] LABORATORY RBC 3.31 (L) 4.58 - [facility] 5.54 [facility] x10(6)/[facility] LABORATORY Hemoglobin 9.8 (L) 13.7 - [facility] 16.5 gm/dL [facility] LABORATORY Hematocrit 30.0 (L) 40.5 - [facility] 48.5 % [facility] LABORATORY MCV 90.6 82.9 - [facility] 93.1 [facility] LABORATORY MCH 29.6 27.5 - [facility] 32.1 pg [facility] LABORATORY MCHC 32.7 32.0 - [facility] 35.7 gm/dL [facility] LABORATORY Platelets 135 (L) 145 - 357 [facility] x10(3)/[facility] LABORATORY RDWSD 50.8 (H) 36.0 - [facility] 45.0 [facility] LABORATORY RDWCV 15.4 (H) 11.4 - [facility] 13.8 % [facility] LABORATORY MPV 10.0 7.6 - 12.9 [facility] LABORATORY nRBC % Auto 0.0 % [facility] LABORATORY nRBC Abs Auto 0.000 0.000 - [facility] 0.000 [facility] x10(3)/[facility] LABORATORY Specimen Anatomical Collection Method Collection Time Receive d Time (Source) Location / / Volume Laterality Blood specimen 07/10/2017 4:28 AM 017 4:36 (specimen) EST AM EST Resulting Agency Comment Spec In Lab Yuan Webber MD HEMATOLOGY ORDERABLES Performing Organization Address City/State/[place] [address] (ABNORMAL) Basic Metabolic Panel (non-fasting) (07/10/2017 4:28 AM EST) athologist Signature Glucose Lvl 178 65 - 199 [facility] mg/dL [facility] LABORATORY Comment: Diabetes: >=200 mg/dL plus symp toms BUN 20 10 - 20 mg/dL [facility] LABORATORY Creatinine 1.19 0.80 - 1.50 mg/dL [facility] LABORATORY Sodium 143 135 - 145 mmol/L [facility] [...] estions. Chloride 107 98 - 107 mmol/L [facility] LABORATORY CO2 21 (L) 22 - 31 mmol/L [facility] LABORATORY Anion Gap 15 5 - 15 mmol/L [facility] LABORATORY Calcium 7.4 (L) 8.5 - 10.5 mg/dL [facility] LABORATORY Estimated GFR 60 >=60 [facility] LABORATORY Comment: The reported eGFR should be multiplied b y 1.2 for patients. The MDRD is not an appropriate measure o f renal function for patients with body mass extremes or in patients with acute kidney failure. http://biNu/DHnkdep http://biNu/DHMCnkf Specimen Anatomical Collection Method Collection Time Receive d Time (Source) Location / / Volume Laterality Blood specimen 07/10/2017 4:28 AM 017 4:36 (specimen) EST AM EST Resulting Agency Comment Spec In Lab Yuan Webber MD CHEMISTRY ORDERABLES Performing Organization Address City/State/[place] [address] POCT Glucose (07/10/2017 4:26 AM EST) athologist Signature POC Glucose 176 65 - 199 [place] mg/dL [facility] LABORATORY Comment: Supplemental ranges: <140 mg/dL before meals <180 mg/dL all other times of the day Specimen Anatomical Collection Method Collection Time Receive d Time (Source) Location / / Volume Laterality Blood specimen 07/10/2017 4:26 AM 017 4:26 (specimen) EST AM EST Yuan Webber MD POINT OF CARE TEST ORDERABLE S Performing Organization Address City/State/[place] [address] (ABNORMAL) POCT Glucose (07/10/2017 3:06 AM EST) athologist Signature POC Glucose 204 (H) 65 - 199 [place] mg/dL [facility] LABORATORY Comment: Supplemental ranges: <140 mg/dL before meals <180 mg/dL all other times of the day Specimen Anatomical Collection Method Collection Time Receive d Time (Source) Location / / Volume Laterality Blood specimen 07/10/2017 3:06 AM 017 3:06 (specimen) EST AM EST Yuan Webber MD POINT OF CARE TEST ORDERABLE S Performing Organization Address City/State/[place] [address] (ABNORMAL) POCT Glucose (07/10/2017 2:10 AM EST) athologist Signature POC Glucose 203 (H) 65 - 199 [place] mg/dL [facility] LABORATORY Comment: Supplemental ranges: <140 mg/dL before meals <180 mg/dL all other times of the day Specimen Anatomical Collection Method Collection Time Receive d Time (Source) Location / / Volume Laterality Blood specimen 07/10/2017 2:10 AM 017 2:10 (specimen) EST AM EST Yuan Webber MD POINT OF CARE TEST ORDERABLE S Performing Organization Address City/State/ZIP Code Phon e Number [address] POCT Glucose (07/10/2017 1:09 AM EST) P athologist Signature POC Glucose 196 65 - 199 [place] mg/dL [facility] LABORATORY Comment: Supplemental ranges: <140 mg/dL before meals <180 mg/dL all other times of the day Specimen Anatomical Collection Method Collection Time Receive d Time (Source) Location / / Volume Laterality Blood specimen 07/10/2017 1:09 AM 017 1:09 (specimen) EST AM EST Yuan Webber MD POINT OF CARE TEST ORDERABLE S Performing Organization Address City/State/ZIP Code Phon e Number [address] POCT Glucose (07/10/2017 12:10 AM EST) P athologist Signature POC Glucose 173 65 - 199 [place] mg/dL [facility] LABORATORY Comment: Supplemental ranges: <140 mg/dL before meals <180 mg/dL all other times of the day Specimen Anatomical Collection Method Collection Time Receive d Time (Source) Location / / Volume Laterality Blood specimen 07/10/2017 12:10 7 (specimen) AM EST 12:10 AM EST Yuan Webber MD POINT OF CARE TEST ORDERABLE S Performing Organization Address City/State/ZIP Code Phon e Number [address] POCT Glucose (07/09/2017 11:01 PM EST) P athologist Signature POC Glucose 140 65 - 199 [facility] SU mg/dL [facility] LABORATORY Comment: Supplemental ranges: <140 mg/dL before meals <180 mg/dL all other times of the day Specimen Anatomical Collection Method Collection Time Receive d Time (Source) Location / / Volume Laterality Blood specimen 07/09/2017 11:01 7 (specimen) PM EST 11:01 PM EST Yuan Webber MD POINT OF CARE TEST ORDERABLE S Performing Organization Address City/State/ZIP Code Phon e Number [address] POCT Glucose (07/09/2017 10:05 PM EST) athologist Signature POC Glucose 144 65 - 199 [place] mg/dL [facility] LABORATORY Comment: Supplemental ranges: <140 mg/dL before meals <180 mg/dL all other times of the day Specimen Anatomical Collection Method Collection Time Receive d Time (Source) Location / / Volume Laterality Blood specimen 07/09/2017 10:05 7 (specimen) PM EST 10:05 PM EST Yuan Webber MD POINT OF CARE TEST ORDERABLE S Performing Organization Address City/State/ZIP Code Phon e Number [address] POCT Glucose (07/09/2017 9:31 PM EST) athologist Signature POC Glucose 121 65 - 199 [place] mg/dL [facility] LABORATORY Comment: Supplemental ranges: <140 mg/dL before meals <180 mg/dL all other times of the day Specimen Anatomical Collection Method Collection Time Receive d Time (Source) Location / / Volume Laterality Blood specimen 07/09/2017 9:31 PM 017 9:31 (specimen) EST PM EST Yuan Webber MD POINT OF CARE TEST ORDERABLE S Performing Organization Address City/State/[place] [address] POCT Glucose (07/09/2017 9:03 PM EST) athologist Signature POC Glucose 98 65 - 199 [place] mg/dL [facility] LABORATORY Comment: Supplemental ranges: <140 mg/dL before meals <180 mg/dL all other times of the day Specimen Anatomical Collection Method Collection Time Receive d Time (Source) Location / / Volume Laterality Blood specimen 07/09/2017 9:03 PM 017 9:03 (specimen) EST PM EST Yuan Webber MD POINT OF CARE TEST ORDERABLE S Performing Organization Address City/State/ZIP Code Phon e Number [address] POCT Glucose (07/09/2017 8:09 PM EST) athologist Signature POC Glucose 117 65 - 199 [place] mg/dL [facility] LABORATORY Comment: Supplemental ranges: <140 mg/dL before meals <180 mg/dL all other times of the day Specimen Anatomical Collection Method Collection Time Receive d Time (Source) Location / / Volume Laterality Blood specimen 07/09/2017 8:09 PM 017 8:09 (specimen) EST PM EST Yuan Webber MD POINT OF CARE TEST ORDERABLE S Performing Organization Address City/[facility]/ZIP Code Phon e Number [address] POCT Glucose (07/09/2017 5:40 PM EST) athologist Signature POC Glucose 155 65 - 199 [place] mg/dL [facility] LABORATORY Comment: Supplemental ranges: <140 mg/dL before meals <180 mg/dL all other times of the day Specimen Anatomical Collection Method Collection Time Receive d Time (Source) Location / / Volume Laterality Blood specimen 07/09/2017 5:40 PM 017 5:40 (specimen) EST PM EST Yuan Webber MD POINT OF CARE TEST ORDERABLE S Performing Organization Address City/[facility]/ZIP Code Phon e Number [address] POCT Glucose (07/09/2017 4:24 PM EST) athologist Signature POC Glucose 164 65 - 199 [place] mg/dL [facility] LABORATORY Comment: Supplemental ranges: <140 mg/dL before meals <180 mg/dL all other times of the day Specimen Anatomical Collection Method Collection Time Receive d Time (Source) Location / / Volume Laterality Blood specimen 07/09/2017 4:24 PM 017 4:24 (specimen) EST PM EST Yuan Webber MD POINT OF CARE TEST ORDERABLE S Performing Organization Address City/State/[place] [address] POCT Glucose (07/09/2017 3:19 PM EST) athologist Signature POC Glucose 166 65 - 199 [place] mg/dL [facility] LABORATORY Comment: Supplemental ranges: <140 mg/dL before meals <180 mg/dL all other times of the day Specimen Anatomical Collection Method Collection Time Receive d Time (Source) Location / / Volume Laterality Blood specimen 07/09/2017 3:19 PM 017 3:19 (specimen) EST PM EST Yuan Webber MD POINT OF CARE TEST ORDERABLE S Performing Organization Address City/[facility]/ZIP Code Phon e Number [address] POCT Glucose (07/09/2017 2:26 PM EST) athologist Signature POC Glucose 179 65 - 199 [place] mg/dL [facility] LABORATORY Comment: Supplemental ranges: <140 mg/dL before meals <180 mg/dL all other times of the day Specimen Anatomical Collection Method Collection Time Receive d Time (Source) Location / / Volume Laterality Blood specimen 07/09/2017 2:26 PM 017 2:26 (specimen) EST PM EST Yuan Webber MD POINT OF CARE TEST ORDERABLE S Performing Organization Address City/[facility]/[place] [address] (ABNORMAL) POCT Glucose (07/09/2017 1:29 PM EST) athologist Signature POC Glucose 210 (H) 65 - 199 [place] mg/dL [facility] LABORATORY Comment: Supplemental ranges: <140 mg/dL before meals <180 mg/dL all other times of the day Specimen Anatomical Collection Method Collection Time Receive d Time (Source) Location / / Volume Laterality Blood specimen 07/09/2017 1:29 PM 017 1:29 (specimen) EST PM EST Yuan Webber MD POINT OF CARE TEST ORDERABLE S Performing Organization Address City/State/ZIP Code Phon e Number [address] POCT Glucose (07/09/2017 12:20 PM EST) P athologist Signature POC Glucose 172 65 - 199 [facility] LABORATORY Comment: Supplemental ranges: <140 mg/dL before meals <180 mg/dL all other times of the day Specimen Anatomical Collection Method Collection Time Receive d Time (Source) Location / / Volume Laterality Blood specimen 07/09/2017 12:20 7 (specimen) PM EST 12:20 PM EST Yuan Webber MD POINT OF CARE TEST ORDERABLE S Performing Organization Address City/State/ZIP Code Phon e Number [address] POCT Glucose (07/09/2017 11:24 AM EST) athologist Signature POC Glucose 156 65 - 199 [facility] LABORATORY Comment: Supplemental ranges: <140 mg/dL before meals <180 mg/dL all other times of the day Specimen Anatomical Collection Method Collection Time Receive d Time (Source) Location / / Volume Laterality Blood specimen 07/09/2017 11:24 7 (specimen) AM EST 11:24 AM EST Yuan Webber MD POINT OF CARE TEST ORDERABLE S Performing Organization Address City/State/ZIP Code Phon e Number [address] POCT Glucose (07/09/2017 11:11 AM EST) athologist Signature POC Glucose 172 65 - 199 [facility] SU mg/dL [facility] LABORATORY Comment: Supplemental ranges: <140 mg/dL before meals <180 mg/dL all other times of the day Specimen Anatomical Collection Method Collection Time Receive d Time (Source) Location / / Volume Laterality Blood specimen 07/09/2017 11:11 7 (specimen) AM EST 11:11 AM EST Yuan Webber MD POINT OF CARE TEST ORDERABLE S Performing Organization Address City/State/ZIP Code Phon e Number [address] POCT Glucose (07/09/2017 10:08 AM EST) athologist Signature POC Glucose 176 65 - 199 [facility] LABORATORY Comment: Supplemental ranges: <140 mg/dL before meals <180 mg/dL all other times of the day Specimen Anatomical Collection Method Collection Time Receive d Time (Source) Location / / Volume Laterality Blood specimen 07/09/2017 10:08 7 (specimen) AM EST 10:08 AM EST Yuan Webber MD POINT OF CARE TEST ORDERABLE S Performing Organization Address City/State/ZIP Code Phon e Number [address] POCT Glucose (07/09/2017 8:02 AM EST) athologist Signature POC Glucose 178 65 - 199 [facility] mg/dL [facility] LABORATORY Comment: Supplemental ranges: <140 mg/dL before meals <180 mg/dL all other times of the day Specimen Anatomical Collection Method Collection Time Receive d Time (Source) Location / / Volume Laterality Blood specimen 07/09/2017 8:02 AM 017 8:02 (specimen) EST AM EST Yuan Webber MD POINT OF CARE TEST ORDERABLE S Performing Organization Address City/State/ZIP Code Phon e Number [address] (ABNORMAL) BLOOD GAS 2 ARTERIAL (07/09/2017 5:37 AM EST) Analysis Performed At Patho logist Time Signature pH Art 7.36 7.35 - [facility] 7.45 [facility] LABORATORY pCO2 Art 38 35 - 45 [facility] mmHg [facility] LABORATORY pO2 Art 79 (L) 85 - 104 [facility] mmHg [facility] LABORATORY HCO3 Art 20.9 20.0 - [facility] 26.0 [facility] mmol/L [facility] LABORATORY BE Art -4.6 (L) -3.0 - 3.0 [facility] mmol/L [facility] LABORATORY Hgb Blood Gas 10.5 (L) 13.7 - [facility] 16.5 gm/dL [facility] LABORATORY O2HB Art 93.8 (L) 94.0 - [facility] 97.0 % [facility] LABORATORY COHB Art 0.3 % [facility] LABORATORY Comment: Nonsmokers: 0.5-1.5% COHB Smokers: Variable, but usually less than 10% Toxic: 20-30% COHB Lethal: Greater than 60% COHB METHB Art 0.6 <=1.5 % [facility] LABORATORY Na Whole Blood 141 135 - 145 mmol/L [facility] K Whole Blood 4.5 3.5 - 5.0 mmol/L [facility] LABORATORY Comment: Please note: Patients with WBC >100,000 may have falsely elevated Potassium levels. Contact the Clinical Chemistry L aboratory if there are any questions. ICa Whole Blood 1.01 (L) 1.15 - 1.33 mmol/L [facility] Comment: Note: ??Total bilirubin higher than 20 m g/dL may lead to falsely low ionized calcium. CL Whole Blood 113 (H) 98 - 107 mmol/L [facility] Gluc Whole Bld 175 65 - 199 mg/dL [facility] Comment: Diabetes: >=200 mg/dL plus symp toms. Lactate WB 1.0 0.5 - 2.2 mmol/L [facility] FIO2 Art 40 % [facility] PF Ratio Art 198 [facility] Specimen Anatomical Collection Method Collection Time Receive d Time (Source) Location / / Volume Laterality Blood specimen 07/09/2017 5:37 AM 017 5:37 (specimen) EST AM EST Yuan Webber MD CHEMISTRY ORDERABLES Performing Organization Address City/State/[place] [address] POCT Glucose (07/09/2017 3:27 AM EST) P athologist Signature POC Glucose 192 65 - 199 [facility] mg/dL [facility] Comment: Supplemental ranges: <140 mg/dL before meals <180 mg/dL all other times of the day Specimen Anatomical Collection Method Collection Time Receive d Time (Source) Location / / Volume Laterality Blood specimen 07/09/2017 3:27 AM 017 3:27 (specimen) EST AM EST Yuan Webber MD POINT OF CARE TEST ORDERABLE S Performing Organization Address City/State/[place] [address] (ABNORMAL) Basic Metabolic Panel (non-fasting) (07/09/2017 2:30 AM EST) athologist Signature Glucose Lvl 179 65 - 199 [facility] mg/dL [facility] Comment: Diabetes: >=200 mg/dL plus symp toms BUN 17 10 - 20 mg/dL [facility] Creatinine 1.34 0.80 - 1.50 mg/dL [facility] Sodium 144 135 - 145 mmol/L [facility] Potassium Not Perf 3.5 - 5.0 mmol/L [facility] Comment: Duplicate order Please note: ??Patients with WBC >100,00 0 may have falsely elevated Potassium levels. ??For accurate Potassium quantif ication in these patients send serum separator tube (gold top) for subsequent determinations. ??Contact the Clinical Chemistry Laboratory if there are any qu estions. Chloride 111 (H) 98 - 107 mmol/L [facility] CO2 21 (L) 22 - 31 mmol/L [facility] Anion Gap 12 5 - 15 mmol/L [facility] Calcium 7.1 (L) 8.5 - 10.5 mg/dL [facility] Comment: result rechecked-JLK Estimated GFR 53 (L) >=60 [facility] Comment: The reported eGFR should be multiplied b y 1.2 for patients. The MDRD is not an appropriate measure o f renal function for patients with body mass extremes or in patients with acute kidney failure. http://biNu/DHnkdep http://biNu/DHMCnkf Specimen Anatomical Collection Method Collection Time Receive d Time (Source) Location / / Volume Laterality Blood specimen Venous Draw / 07/09/2017 2:30 AM 2016 2:42 (specimen) Unknown EST AM EST Resulting Agency Comment Spec In Lab Yuan Webber MD CHEMISTRY ORDERABLES Performing Organization Address City/[facility]/[place] [address] (ABNORMAL) Potassium (07/09/2017 2:30 AM EST) P athologist Signature Potassium 5.1 (H) 3.5 - 5.0 [place] mmol/L [facility] Comment: Please note: ??Patients [...] Webber MD CHEMISTRY ORDERABLES Performing Organization Address City/[facility] [place] [address] (ABNORMAL) Hemogram (07/09/2017 2:30 AM EST) Analysis Performed At Patho logist Time Signature WBC 12.5 (H) 4.0 - 9.5 [place] x10(3)/[facility] LABORATORY RBC 3.38 (L) 4.58 - [place] 5.54 [facility] x10(6)/[facility] LABORATORY Hemoglobin 10.1 (L) 13.7 - [place] 16.5 gm/dL [facility] Hematocrit 30.3 (L) 40.5 - [place] 48.5 % [facility] MCV 89.6 82.9 - [place] 93.1 fL [facility] MCH 29.9 27.5 - [place] 32.1 pg [facility] MCHC 33.3 32.0 - [place] 35.7 gm/dL [facility] Platelets 127 (L) 145 - 357 [place] x10(3)/[facility] LABORATORY RDWSD 49.3 (H) 36.0 - [place] 45.0 [facility] LABORATORY RDWCV 15.2 (H) 11.4 - [facility] SU 13.8 % [facility] MPV 9.9 7.6 - 12.9 [facility] LABORATORY nRBC % Auto 0.0 % [facility] nRBC Abs Auto 0.000 0.000 - [place] 0.000 [facility] x10(3)/[facility] LABORATORY Specimen Anatomical Collection Method Collection Time Receive d Time (Source) Location / / Volume Laterality Blood specimen 07/09/2017 2:30 AM 017 2:41 (specimen) EST AM EST Resulting Agency Comment Spec In Lab Yuan Webber MD HEMATOLOGY ORDERABLES Performing Organization Address City/[facility]/ZIP [facility] Phon e Number [address] POCT Glucose (07/09/2017 2:10 AM EST) athologist Signature POC Glucose 169 65 - 199 [facility] Comment: Supplemental ranges: <140 mg/dL before meals <180 mg/dL all other times of the day Specimen Anatomical Collection Method Collection Time Receive d Time (Source) Location / / Volume Laterality Blood specimen 07/09/2017 2:10 AM 017 2:10 (specimen) EST AM EST Yuan Webber MD POINT OF CARE TEST ORDERABLE S Performing Organization Address City/State/ZIP Code Phon e Number [address] POCT Glucose (07/09/2017 1:01 AM EST) P athologist Signature POC Glucose 173 65 - 199 [facility] Comment: Supplemental ranges: <140 mg/dL before meals <180 mg/dL all other times of the day Specimen Anatomical Collection Method Collection Time Receive d Time (Source) Location / / Volume Laterality Blood specimen 07/09/2017 1:01 AM 017 1:01 (specimen) EST AM EST Yuan Webber MD POINT OF CARE TEST ORDERABLE S Performing Organization Address City/[facility]/[place] [address] Blood culture (07/09/2017 12:40 AM EST) [facility] gist Method Time Signature Blood Culture No growth [place] at 5 days. [facility] Specimen Anatomical Collection Method Collection Time Receive d Time (Source) Location / / Volume Laterality Blood specimen STRUCTURE OF RIGHT 07/09/2017 12:40 3:58 (specimen) UPPER LIMB / AM EST AM EST Unknown Resulting Agency Comment Spec In Lab Yuan Webber MD MICROBIOLOGY - BLOOD ORDERAB LES Performing Organization Address City/[facility]/[place] [address] Blood culture (07/09/2017 12:30 AM EST) [facility] gist Method Time Signature Blood Culture No growth [place] DAVIS at 5 days. [facility] Specimen Anatomical Collection Method Collection Time Receive d Time (Source) Location / / Volume Laterality Blood specimen STRUCTURE OF LEFT 07/09/2017 12:30 1211/2016 3:59 (specimen) UPPER LIMB / AM EST AM EST Unknown Resulting Agency Comment Spec In Lab Yuan Webber MD MICROBIOLOGY - BLOOD ORDERAB LES Performing Organization Address City/[facility]/[place] [address] (ABNORMAL) Urinalysis Microscopic Exam (07/09/2017 12:05 AM EST) Analysis Performed At Patho logist Time Signature RBC UA 32 (H) 0 - 3 /HPF [facility] WBC UA 5 (H) 0 - 3 /HPF [facility] Squam Epith UA <1 <=4 /HPF [facility] Hyaline Cast 17 (H) 0 - 2 /LPF [facility] Gran Cast UA 1 (H) <=0 /LPF [facility] Uric Ac Bianca Rare (A) None /HPF [facility] Specimen (Source) Anatomical Collection Method Collection Time Re ceived Time Location / / Volume Laterality Urine specimen 07/09/2017 12: 7 obtained via AM EST 12:39 AM EST indwelling urinary catheter (specimen) Resulting Agency Comment Spec In Lab Yuan Webber MD URINE ORDERABLES Performing Organization Address City/[facility]/ZIP Code Phon e Number [address] (ABNORMAL) Urinalysis with reflex Culture (07/09/2017 12:05 AM EST) [facility] Method Time Signature Glucose UA Negative Negative [facility] mg/dL [facility]ORY Protein UA 30 (A) Negative [facility] mg/dL [facility] Bilirubin UA Negative Negative [facility] mg/dL [facility] Comment: Clinical correlation required for positi ve Urine Bilirubin results as false positive may occur with some drugs and d rug related products. If a false positive is suspected a serum total bili yeager should be considered if clinically indicated. Urobilinogen UA Normal Normal mg/dL [facility] pH UA 5.0 5.0 - 8.0 [facility] Blood UA Moderate (A) Negative mg/dL [facility] Ketones UA Negative Negative mg/dL [facility] Nitrite UA Negative Negative [facility] Leukocytes UA Negative Negative mcL [facility] Appearance UA Hazy (A) Clear [facility] Spec [place] UA 1.025 1.002 - 1.030 [facility] Color UA Yellow Yellow [facility] Culture Reflexed No [facility] Specimen (Source) Anatomical Collection Method Collection Time Re ceived Time Location / / Volume Laterality Urine specimen 07/09/2017 12:05 7 obtained via AM EST 12:39 AM EST indwelling urinary catheter (specimen) Resulting Agency Comment Spec In Lab Yuan Webber MD URINE ORDERABLES Performing Organization Address City/[facility]/ZIP Code Phon e Number [address] POCT Glucose (07/08/2017 11:01 PM EST) athologist Signature POC Glucose 191 65 - 199 [facility] mg/dL [facility] Comment: Supplemental ranges: <140 mg/dL before meals <180 mg/dL all other times of the day Specimen Anatomical Collection Method Collection Time Receive d Time (Source) Location / / Volume Laterality Blood specimen 07/08/2017 11:01 7 (specimen) PM EST 11:01 PM EST Yuan Webber MD POINT OF CARE TEST ORDERABLE S Performing Organization Address City/State/ZIP Code Phon e Number [address] POCT Glucose (07/08/2017 10:04 PM EST) athologist Signature POC Glucose 198 65 - 199 [facility] mg/dL [facility] Comment: Supplemental ranges: <140 mg/dL before meals <180 mg/dL all other times of the day Specimen Anatomical Collection Method Collection Time Receive d Time (Source) Location / / Volume Laterality Blood specimen 07/08/2017 10:04 7 (specimen) PM EST 10:04 PM EST Yuan Webber MD POINT OF CARE TEST ORDERABLE S Performing Organization Address City/State/[place] [address] Prepare Albumin 5% in 250 mL (07/08/2017 8:49 PM EST) athologist Signature Dispensed? Yes [facility] Specimen Anatomical Collection Method Collection Time Receive d Time (Source) Location / / Volume Laterality Blood specimen No Charge / 07/08/2017 8:49 PM 017 8:51 (specimen) Unknown EST PM EST Resulting Agency Comment Spec In Lab [facility] ORDERABLES Performing Organization Address City/State/[place] [address] POCT Glucose (07/08/2017 8:28 PM EST) athologist Signature POC Glucose 195 65 - 199 [facility] Comment: Supplemental ranges: <140 mg/dL before meals <180 mg/dL all other times of the day Specimen Anatomical Collection Method Collection Time Receive d Time (Source) Location / / Volume Laterality Blood specimen 07/08/2017 8:28 PM 017 8:28 (specimen) EST PM EST Yuan Webber MD POINT OF CARE TEST ORDERABLE S Performing Organization Address City/State/[place] [address] (ABNORMAL) POCT Glucose (07/08/2017 7:13 PM EST) athologist Signature POC Glucose 220 (H) 65 - 199 [facility] Comment: Supplemental ranges: <140 mg/dL before meals <180 mg/dL all other times of the day Specimen Anatomical Collection Method Collection Time Receive d Time (Source) Location / / Volume Laterality Blood specimen 07/08/2017 7:13 PM 017 7:13 (specimen) EST PM EST Yuan Webber MD POINT OF CARE TEST ORDERABLE S Performing Organization Address City/State/[place] [address] POCT Glucose (07/08/2017 5:04 PM EST) athologist Signature POC Glucose 147 65 - 199 [facility]dL [facility] Comment: Supplemental ranges: <140 mg/dL before meals <180 mg/dL all other times of the day Specimen Anatomical Collection Method Collection Time Receive d Time (Source) Location / / Volume Laterality Blood specimen 07/08/2017 5:04 PM 017 5:04 (specimen) EST PM EST Yuan Webber MD POINT OF CARE TEST ORDERABLE S Performing Organization Address City/State/[place] [address] (ABNORMAL) BLOOD GAS 2 ARTERIAL (07/08/2017 4:13 PM EST) Analysis Performed At Patho logist [place] Signature pH Art 7.38 7.35 - [facility] 7.45 [facility] LABORATORY pCO2 Art 36 35 - 45 [facility] mmHg [facility] LABORATORY pO2 Art 91 85 - 104 [facility] LABORATORY HCO3 Art 20.9 20.0 - [facility] 26.0 [facility] mmol/L [facility] LABORATORY BE Art -4.2 (L) -3.0 - 3.0 [facility] mmol/L [facility] LABORATORY Hgb Blood Gas 11.7 (L) 13.7 - [facility] 16.5 gm/dL [facility] O2HB Art 95.1 94.0 - [facility] 97.0 % [facility] LABORATORY COHB Art 0.6 % [facility] Comment: Nonsmokers: 0.5-1.5% COHB Smokers: Variable, but usually less than 10% Toxic: 20-30% COHB Lethal: Greater than 60% COHB METHB Art 0.6 <=1.5 % [facility] Na Whole Blood 139 135 - 145 mmol/L [facility] K Whole Blood 4.2 3.5 - 5.0 mmol/L [facility] Comment: Please note: Patients with WBC >100,000 may have falsely elevated Potassium levels. Contact the Clinical Chemistry L aboratory if there are any questions. ICa Whole Blood 1.05 (L) 1.15 - 1.33 mmol/L [facility] Comment: Note: ??Total bilirubin higher than 20 m g/dL may lead to falsely low ionized calcium. CL Whole Blood 110 (H) 98 - 107 mmol/L [facility]ORY Gluc Whole Bld 155 65 - 199 mg/dL [facility] Comment: Diabetes: >=200 mg/dL plus symp toms. Lactate WB 1.4 0.5 - 2.2 mmol/L [facility] FIO2 Art 40 % [facility] PF Ratio Art 228 [facility] LABORATORY Specimen Anatomical Collection Method Collection Time Receive d Time (Source) Location / / Volume Laterality Blood specimen 07/08/2017 4:13 PM 017 4:13 (specimen) EST PM EST Yuan Webber MD CHEMISTRY ORDERABLES Performing Organization Address City/State/ZIP Code Phon e Number [address] POCT Glucose (07/08/2017 4:01 PM EST) athologist Signature POC Glucose 148 65 - 199 [place] mg/dL [facility]ORY Comment: Supplemental ranges: <140 mg/dL before meals <180 mg/dL all other times of the day Specimen Anatomical Collection Method Collection Time Receive d Time (Source) Location / / Volume Laterality Blood specimen 07/08/2017 4:01 PM 017 4:01 (specimen) EST PM EST Yuan Webber MD POINT OF CARE TEST ORDERABLE S Performing Organization Address City/State/ZIP Code Phon e Number [address] POCT Glucose (07/08/2017 3:21 PM EST) athologist Signature POC Glucose 118 65 - 199 [place] mg/dL [facility] Comment: Supplemental ranges: <140 mg/dL before meals <180 mg/dL all other times of the day Specimen Anatomical Collection Method Collection Time Receive d Time (Source) Location / / Volume Laterality Blood specimen 07/08/2017 3:21 PM 017 3:21 (specimen) EST PM EST Yuan Webber MD POINT OF CARE TEST ORDERABLE S Performing Organization Address City/State/ZIP Code Phon e Number [address] POCT Glucose (07/08/2017 2:01 PM EST) athologist Signature POC Glucose 129 65 - 199 [facility] mg/dL [facility]ORY Comment: Supplemental ranges: <140 mg/dL before meals <180 mg/dL all other times of the day Specimen Anatomical Collection Method Collection Time Receive d Time (Source) Location / / Volume Laterality Blood specimen 07/08/2017 2:01 PM 017 2:01 (specimen) EST PM EST Yuan Webber MD POINT OF CARE TEST ORDERABLE S Performing Organization Address City/[facility]/[place] [address] POCT Glucose (07/08/2017 11:53 AM EST) athologist Signature POC Glucose 156 65 - 199 [place] mg/dL [facility] Comment: Supplemental ranges: <140 mg/dL before meals <180 mg/dL all other times of the day Specimen Anatomical Collection Method Collection Time Receive d Time (Source) Location / / Volume Laterality Blood specimen 07/08/2017 11:53 7 (specimen) AM EST 11:53 AM EST Yuan Webber MD POINT OF CARE TEST ORDERABLE S Performing Organization Address [facility]/ZIP Code Phon e Number [address] POCT Glucose (07/08/2017 11:04 AM EST) athologist Signature POC Glucose 181 65 - 199 [place] mg/dL [facility] Comment: Supplemental ranges: <140 mg/dL before meals <180 mg/dL all other times of the day Specimen Anatomical Collection Method Collection Time Receive d Time (Source) Location / / Volume Laterality Blood specimen 07/08/2017 11:04 7 (specimen) AM EST 11:04 AM EST Yuan Webber MD POINT OF CARE TEST ORDERABLE S Performing Organization Address City/[facility]/[place] [address] (ABNORMAL) POCT Glucose (07/08/2017 9:24 AM EST) athologist Signature POC Glucose 203 (H) 65 - 199 [place] mg/dL [facility] Comment: Supplemental ranges: <140 mg/dL before meals <180 mg/dL all other times of the day Specimen Anatomical Collection Method Collection Time Receive d Time (Source) Location / / Volume Laterality Blood specimen 07/08/2017 9:24 AM 017 9:24 (specimen) EST AM EST Yuan Webber MD POINT OF CARE TEST ORDERABLE S Performing Organization Address City/State/[place] [address] APTT (07/08/2017 8:40 AM EST) P athologist Signature PTT 33 25 - 35 sec [facility] Comment: The recommended therapeutic range for fu ll dose, unfractionated heparin at [facility] is 80 ? 114 [...] Webber MD HEMATOLOGY ORDERABLES Performing Organization Address [facility] [address] (ABNORMAL) Prothrombin Time (07/08/2017 8:40 AM EST) athologist Signature PT 15.6 (H) 11.8 - 14.0 [facility] LABORATORY INR 1.3 (H) 0.9 - [...] Webber MD HEMATOLOGY ORDERABLES Performing Organization Address [facility] [place] [address] (ABNORMAL) POCT Glucose (07/08/2017 7:38 AM EST) athologist Signature POC Glucose 232 (H) 65 - 199 [facility] Comment: Supplemental ranges: <140 mg/dL before meals <180 mg/dL all other times of the day Specimen Anatomical Collection Method Collection Time Receive d Time (Source) Location / / Volume Laterality Blood specimen 07/08/2017 7:38 AM 017 7:38 (specimen) EST AM EST Yuan Webber MD POINT OF CARE TEST ORDERABLE S Performing Organization Address City/State/[place] [address] (ABNORMAL) POCT Glucose (07/08/2017 7:07 AM EST) athologist Signature POC Glucose 234 (H) 65 - 199 [facility] Comment: Supplemental ranges: <140 mg/dL before meals <180 mg/dL all other times of the day Specimen Anatomical Collection Method Collection Time Receive d Time (Source) Location / / Volume Laterality Blood specimen 07/08/2017 7:07 AM 017 7:07 (specimen) EST AM EST Yuan Webber MD POINT OF CARE TEST ORDERABLE S Performing Organization Address City/State/[place] [address] (ABNORMAL) POCT Glucose (07/08/2017 6:04 AM EST) athologist Signature POC Glucose 225 (H) 65 - 199 [facility] mg/dL [facility] Comment: Supplemental ranges: <140 mg/dL before meals <180 mg/dL all other times of the day Specimen Anatomical Collection Method Collection Time Receive d Time (Source) Location / / Volume Laterality Blood specimen 07/08/2017 6:04 AM 017 6:04 (specimen) EST AM EST Yuan Webber MD POINT OF CARE TEST ORDERABLE S Performing Organization Address City/State/[place] [address] (ABNORMAL) POCT Glucose (07/08/2017 5:31 AM EST) athologist Signature POC Glucose 216 (H) 65 - 199 [facility] mg[facility]dL [facility] Comment: Supplemental ranges: <140 mg/dL before meals <180 mg/dL all other times of the day Specimen Anatomical Collection Method Collection Time Receive d Time (Source) Location / / Volume Laterality Blood specimen 07/08/2017 5:31 AM 017 5:31 (specimen) EST AM EST Yuan Webber MD POINT OF CARE TEST ORDERABLE S Performing Organization Address City/State/[place] [address] (ABNORMAL) POCT Glucose (07/08/2017 4:52 AM EST) athologist Signature POC Glucose 257 (H) 65 - 199 [facility] mg/[facility] Comment: Supplemental ranges: <140 mg/dL before meals <180 mg/dL all other times of the day Specimen Anatomical Collection Method Collection Time Receive d Time (Source) Location / / Volume Laterality Blood specimen 07/08/2017 4:52 AM 017 4:52 (specimen) EST AM EST Daphne Shahid MD POINT OF CARE TEST ORDERABLE S Performing Organization Address City/[facility]/[place] [address] (ABNORMAL) BLOOD GAS 2 ARTERIAL (07/08/2017 4:04 AM EST) Analysis Performed At Patho logist Time Signature pH Art 7.30 (L) 7.35 - [facility] 7.45 [facility] LAB[facility]ATORY pCO2 Art 41 35 - 45 [facility] mmHg [facility] pO2 Art 83 (L) 85 - 104 [facility] mmHg [facility] HCO3 Art 19.6 (L) 20.0 - [facility] 26.0 [facility] mmol/L [facility] BE Art -6.8 (L) -3.0 - 3.0 [facility] mmol/L [facility] Hgb Blood Gas 12.2 (L) 13.7 - [facility] 16.5 gm/dL [facility] O2HB Art 93.5 (L) 94.0 - [facility] 97.0 % [facility] COHB Art 0.4 % [facility] Comment: Nonsmokers: 0.5-1.5% COHB Smokers: Variable, but usually less than 10% Toxic: 20-30% COHB Lethal: Greater than 60% COHB METHB Art 0.8 <=1.5 % [facility] Na Whole Blood 138 135 - 145 mmol/L [facility] K Whole Blood 4.4 3.5 - 5.0 mmol/L [facility] Comment: Please note: Patients with WBC >100,000 may have falsely elevated Potassium levels. Contact the Clinical Chemistry L aboratory if there are any questions. ICa Whole Blood 1.05 (L) 1.15 - 1.33 mmol/L [facility] Comment: Note: ??Total bilirubin higher than 20 m g/dL may lead to falsely low ionized calcium. CL Whole Blood 107 98 - 107 mmol/L [facility] Gluc Whole Bld 274 (H) 65 - 199 mg/dL [facility] Comment: Diabetes: >=200 mg/dL plus symp toms. Lactate WB 4.4 (Critical) 0.5 - 2.2 mmol/L [facility] Comment: Noted by survey instrument operator. FIO2 Art 40 % [facility] PF Ratio Art 208 [facility] Specimen Anatomical Collection Method Collection Time Receive d Time (Source) Location / / Volume Laterality Blood specimen 07/08/2017 4:04 AM 017 4:04 (specimen) EST AM EST Daphne Shahid MD CHEMISTRY ORDERABLES Performing Organization Address City/State/[place] [address] Scan, Peripheral Blood (07/08/2017 4:00 AM EST) P athologist Signature Plat Estimate Normal [facility] RBC Morphology Normal [facility] Specimen Anatomical Collection Method Collection Time Receive d Time (Source) Location / / Volume Laterality Blood specimen 07/08/2017 4:00 AM 017 4:09 (specimen) EST AM EST Resulting Agency Comment Spec In Lab Yuan Webber MD HEMATOLOGY ORDERABLES Performing Organization Address City/State/[place] [address] (ABNORMAL) Differential, Automated (07/08/2017 4:00 AM EST) [facility] Method Time Signature Neutrophils % 85.4 % [facility] Neutr Abs (ANC) 16.07 (H) 1.70 - [facility] 6.10 [facility] x10(3)/[facility] L LABORATORY Lymphocytes % 3.5 % [facility] Lymphocytes Abs 0.6 (L) 0.9 - 3.2 [facility] x10(3)/[facility] LABORATORY Monocytes % 10.4 % [facility] Monocyte Abs 2.0 (H) 0.3 - 0.9 [facility] x10(3)/[facility] LABORATORY Eosinophils % 0.0 % [facility] Eosinophils Abs 0.0 0.0 - 0.4 [facility] x10(3)/[facility] LABORATORY Basophils % 0.1 % [facility] Basophils Abs 0.0 0.0 - 0.1 [facility] x10(3)/[facility] LABORATORY Immature Gran % 0.60 % [facility] [...] Abs 0.12 (H) 0.00 - 0.04 x10(3)/[facility] LABORATORY Specimen Anatomical Collection Method Collection Time Receive d Time (Source) Location / / Volume Laterality Blood specimen 07/08/2017 4:00 AM 017 4:09 (specimen) EST AM EST Resulting Agency Comment Spec In Lab Yuan Webber MD HEMATOLOGY ORDERABLES Performing Organization Address City/State/[place] [address] (ABNORMAL) Hemogram (07/08/2017 4:00 AM EST) Analysis Performed At Patho logist Time Signature WBC 18.8 (H) 4.0 - 9.5 [facility] LAB[facility]ATORY RBC 4.00 (L) 4.58 - [place] 5.54 [facility] x10(6)/[facility] LABORATORY Hemoglobin 11.9 (L) 13.7 - [facility] 16.5 gm/dL [facility] Hematocrit 35.9 (L) 40.5 - [facility] 48.5 % [facility] MCV 89.8 82.9 - [facility] 93.1 [facility] LABORATORY MCH 29.8 27.5 - [place] 32.1 pg [facility] MCHC 33.1 32.0 - [place] 35.7 gm/dL [facility] Platelets 232 145 - 357 [facility] x10(3)/[facility] LABORATORY RDWSD 47.6 (H) 36.0 - [facility] SU 45.0 [facility] LABORATORY RDWCV 14.5 (H) 11.4 - [facility] SU 13.8 % [facility] MPV 9.5 7.6 - 12.9 [place] [facility] LABORATORY nRBC % Auto 0.0 % [facility] nRBC Abs Auto 0.000 0.000 - [place] 0.000 [facility] x10(3)/[facility] LABORATORY Specimen Anatomical Collection Method Collection Time Receive d Time (Source) Location / / Volume Laterality Blood specimen 07/08/2017 4:00 AM 017 4:09 (specimen) EST AM EST Resulting Agency Comment Spec In Lab Yuan Webber MD HEMATOLOGY ORDERABLES Performing Organization Address City/State/[place] [address] (ABNORMAL) Electrolytes panel (07/08/2017 4:00 AM EST) P athologist Signature Sodium 139 135 - 145 [facility] mmol/L [facility] Potassium 4.7 3.5 - 5.0 [facility] mmol/L [facility] Comment: result rechecked-JLK Please note: ??Patients with WBC >100,00 0 may have falsely elevated Potassium levels. ??For accurate Potassium quantif ication in these patients send serum separator tube (gold top) for subsequent determinations. ??Contact the Clinical Chemistry Laboratory if there are any qu estions. Chloride 104 98 - 107 mmol/L [facility] CO2 21 (L) 22 - 31 mmol/L [facility] Anion Gap 14 5 - 15 mmol/L [facility] Specimen Anatomical Collection Method Collection Time Receive d Time (Source) Location / / Volume Laterality Blood specimen 07/08/2017 4:00 AM 017 4:10 (specimen) EST AM EST Resulting Agency Comment Spec In Lab Yuan Webber MD CHEMISTRY ORDERABLES Performing Organization Address City/State/[place] [address] (ABNORMAL) Cardiac Enzymes (LEB/CGP) (07/08/2017 4:00 AM EST) athologist [facility] Troponin-T 1.88 (H) 0.00 - [facility] 0.00 ng/mL [facility] Comment: The 99th percentile [...] additional sample may be indicated. Reference: Third [place] Definition of Myocardial Infarction. Journal of the [place] [employer] 2012;60:1581-98 CK, Total 413 (H) 0 - 200 unit/L [facility] Comment: result rechecked-JLK Specimen Anatomical Collection Method Collection Time Receive d Time (Source) Location / / Volume Laterality Blood specimen 07/08/2017 4:00 AM 017 4:09 (specimen) EST AM EST Resulting Agency Comment Spec In Lab Yuan Webber MD CHEMISTRY ORDERABLES Performing Organization Address City/State/[place] [address] (ABNORMAL) Glucose, fasting (07/08/2017 4:00 AM EST) athologist Signature Glucose 287 (H) 65 - 99 [facility] Fasting mg/dL [facility] Comment: ?Fasting* Glucose Interpretive [...] of Diabetes Mellitus, Position Statement from the [place] [employer]. ??Diabete s Care, Volume 33, Supplement 1, Jul 2009 Specimen Anatomical Collection Method Collection Time Receive d Time (Source) Location / / Volume Laterality Blood specimen 07/08/2017 4:00 AM 017 4:09 (specimen) EST AM EST Resulting Agency Comment Spec In Lab Yuan Webber MD CHEMISTRY ORDERABLES Performing Organization Address City/[facility]/[place] [address] (ABNORMAL) Creatinine (07/08/2017 4:00 AM EST) Analysis Performed At Patho logist Time Signature Creatinine 1.55 (H) 0.80 - [place] 1.50 mg/dL [facility] Estimated GFR 44 (L) >=60 [facility] Comment: The reported eGFR should be multiplied b y 1.2 for patients. The MDRD is not an appropriate measure o f renal function for patients with body mass extremes or in patients with acute kidney failure. http://biNu/DHnkdep http://biNu/DHMCnkf Specimen Anatomical Collection Method Collection Time Receive d Time (Source) Location / / Volume Laterality Blood specimen 07/08/2017 4:00 AM 017 4:09 (specimen) EST AM EST Resulting Agency Comment Spec In Lab Yuan Webber MD CHEMISTRY ORDERABLES Performing Organization Address City/[facility]/[place] [address] BUN (07/08/2017 4:00 AM EST) P athologist Signature BUN 16 10 - 20 [facility]dL [facility] Specimen Anatomical Collection Method Collection Time Receive d Time (Source) Location / / Volume Laterality Blood specimen 07/08/2017 4:00 AM 017 4:09 (specimen) EST AM EST Resulting Agency Comment Spec In Lab Yuan Webber MD CHEMISTRY ORDERABLES Performing Organization Address City/[facility]/[place] [address] (ABNORMAL) POCT Glucose (07/08/2017 3:00 AM EST) P athologist Signature POC Glucose 273 (H) 65 - 199 [facility] mg/dL [facility] Comment: Supplemental ranges: <140 mg/dL before meals <180 mg/dL all other times of the day Specimen Anatomical Collection Method Collection Time Receive d Time (Source) Location / / Volume Laterality Blood specimen 07/08/2017 3:00 AM 017 3:00 (specimen) EST AM EST Daphne Shahid MD POINT OF CARE TEST ORDERABLE S Performing Organization Address City/[facility]/[place] [address] (ABNORMAL) POCT Glucose (07/08/2017 1:57 AM EST) athologist Signature POC Glucose 288 (H) 65 - 199 [facility] mg/dL [facility] Comment: Supplemental ranges: <140 mg/dL before meals <180 mg/dL all other times of the day Specimen Anatomical Collection Method Collection Time Receive d Time (Source) Location / / Volume Laterality Blood specimen 07/08/2017 1:57 AM 017 1:57 (specimen) EST AM EST Daphne Shahid MD POINT OF CARE TEST ORDERABLE S Performing Organization Address City/[facility]/[place] [address] (ABNORMAL) POCT Glucose (07/08/2017 1:01 AM EST) athologist Signature POC Glucose 315 (H) 65 - 199 [facility] mg/dL [facility] Comment: Supplemental ranges: <140 mg/dL before meals <180 mg/dL all other times of the day Specimen Anatomical Collection Method Collection Time Receive d Time (Source) Location / / Volume Laterality Blood specimen 07/08/2017 1:01 AM 017 1:01 (specimen) EST AM EST Daphne Shahid MD POINT OF CARE TEST ORDERABLE S Performing Organization Address City/State/[place] [address] (ABNORMAL) BLOOD GAS 2 ARTERIAL (07/08/2017 12:09 AM EST) P athologist Signature pH Art 7.26 7.35 - [facility] (Critical) 7.45 [facility] Comment: Noted by survey instrument operator. pCO2 Art 41 35 - 45 mmHg [facility] pO2 Art 96 85 - [address] [facility] HCO3 Art 17.7 (L) 20.0 - 26.0 mmol/L [facility] BE Art -9.4 (L) -3.0 - 3.0 mmol/L [facility] Hgb Blood Gas 12.4 (L) 13.7 - 16.5 gm/dL [facility] O2HB Art 94.7 94.0 - 97.0 % [facility] COHB Art 0.2 % [facility] Comment: Nonsmokers: 0.5-1.5% COHB Smokers: Variable, but usually less than 10% Toxic: 20-30% COHB Lethal: Greater than 60% COHB METHB Art 0.6 <=1.5 % [facility] Na Whole Blood 141 135 - 145 mmol/L [facility] K Whole Blood 3.5 3.5 - 5.0 mmol/L [facility] Comment: Please note: Patients with WBC >100,000 may have falsely elevated Potassium levels. Contact the Clinical Chemistry L aboratory if there are any questions. ICa Whole Blood 1.03 (L) 1.15 - 1.33 mmol/L [facility] Comment: Note: ??Total bilirubin higher than 20 m g/dL may lead to falsely low ionized calcium. CL Whole Blood 109 (H) 98 - 107 mmol/L [facility] Gluc Whole Bld 315 (H) 65 - 199 mg/dL [facility] Comment: Diabetes: >=200 mg/dL plus symp toms. Lactate WB 7.6 (Critical) 0.5 - 2.2 mmol/L [facility] Comment: Noted by survey instrument operator. FIO2 Art 40 % [facility] PF Ratio Art 240 [facility] Specimen Anatomical Collection Method Collection Time Receive d Time (Source) Location / / Volume Laterality Blood specimen Arterial Draw / 07/08/2017 12:09 2016 5:31 (specimen) Unknown AM EST AM EST Resulting Agency Comment Spec In Lab Samy Maldonado MD CHEMISTRY ORDERABLES Performing Organization Address City/State/[place] [address] (ABNORMAL) POCT Glucose (07/07/2017 10:56 PM EST) athologist Signature POC Glucose 292 (H) 65 - 199 [facility] mg/dL [facility] Comment: Supplemental ranges: <140 mg/dL before meals <180 mg/dL all other times of the day Specimen Anatomical Collection Method Collection Time Receive d Time (Source) Location / / Volume Laterality Blood specimen 07/07/2017 10:56 7 (specimen) PM EST 10:56 PM EST Daphne Shahid MD POINT OF CARE TEST ORDERABLE S Performing Organization Address City/[facility]/[place] [address] (ABNORMAL) BLOOD GAS 2 ARTERIAL (07/07/2017 10:04 PM EST) athologist Signature pH Art 7.22 7.35 - [facility] (Critical) 7.45 [facility] Comment: Noted by survey instrument operator. pCO2 Art 42 35 - 45 mmHg [facility] pO2 Art 94 85 - [address] [facility] HCO3 Art 16.9 (L) 20.0 - 26.0 mmol/L [facility] BE Art -10.7 (L) -3.0 - 3.0 mmol/L [facility] Hgb Blood Gas 13.0 (L) 13.7 - 16.5 gm/dL [facility] O2HB Art 93.8 (L) 94.0 - 97.0 % [facility] COHB Art 0.7 % [facility] [...] Blood 1.07 (L) 1.15 - 1.33 mmol/L [facility] Comment: Note: ??Total bilirubin higher than 20 m g/dL may lead to falsely low ionized calcium. CL Whole Blood 107 98 - 107 mmol/L [facility] Gluc Whole Bld 304 (H) 65 - 199 mg/dL [facility] Comment: Diabetes: >=200 mg/dL plus symp toms. Lactate WB 8.2 (Critical) 0.5 - 2.2 mmol/L [facility] Comment: Noted by survey instrument operator. FIO2 Art 40 % [facility] PF Ratio Art 235 [facility] Specimen Anatomical Collection Method Collection Time Receive d Time (Source) Location / / Volume Laterality Blood specimen 07/07/2017 10:04 7 (specimen) PM EST 10:04 PM EST Daphne Shahid MD CHEMISTRY ORDERABLES Performing Organization Address City/[facility]/ZIP Code Phon e Number [address] (ABNORMAL) Hemoglobin (07/07/2017 10:00 PM EST) P athologist Signature Hemoglobin 12.8 (L) 13.7 - [facility] 16.5 gm/dL [facility] Specimen Anatomical Collection Method Collection Time Receive d Time (Source) Location / / Volume Laterality Blood specimen 07/07/2017 10:00 7 (specimen) PM EST 10:13 PM EST Resulting Agency Comment Spec In Lab Yuan Webber MD HEMATOLOGY ORDERABLES Performing Organization Address City/[facility]/ZIP Code Phon e Number [address] (ABNORMAL) Potassium (07/07/2017 10:00 PM EST) P athologist Signature Potassium 3.4 (L) 3.5 - 5.0 [facility] mmol/L [facility] Comment: Please note: ??Patients [...] Webber MD CHEMISTRY ORDERABLES Performing Organization Address City/[facility]/ZIP Code Phon e Number [address] (ABNORMAL) POCT Glucose (07/07/2017 8:49 PM EST) athologist [facility] POC Glucose 241 (H) 65 - 199 [facility] mg/dL [facility] Comment: Supplemental ranges: <140 mg/dL before meals <180 mg/dL all other times of the day Specimen Anatomical Collection Method Collection Time Receive d Time (Source) Location / / Volume Laterality Blood specimen 07/07/2017 8:49 PM 017 8:49 (specimen) EST PM EST Daphne Shahid MD POINT OF CARE TEST ORDERABLE S Performing Organization Address City/[facility]/[place] [address] Prepare Albumin 5% in 250 mL (07/07/2017 8:03 PM EST) athologist [facility] Dispensed? Yes [facility] Specimen Anatomical Collection Method Collection Time Receive d Time (Source) Location / / Volume Laterality Blood specimen No Charge / 07/07/2017 8:03 PM 017 8:04 (specimen) Unknown EST PM EST Resulting Agency Comment Spec In Lab Michael BROWN BLOOD BANK ORDERABLES Performing Organization Address City/[facility]/[place] [address] EKG 12 Lead (07/07/2017 7:17 PM EST) Component Value Ref Range Test Analysis Performed Pathologis t Method Time At Signature Ventricular rate 75 BPM MUSE SYSTEM Atrial Rate 75 BPM MUSE SYSTEM P-R Interval 168 ms MUSE SYSTEM QRS Duration 104 ms MUSE SYSTEM Q-T Interval 462 ms MUSE SYSTEM QTC Calculated 515 ms MUSE SYSTEM (Bezet) Calculated P [place] 52 degrees MUSE SYSTEM Calculated R [place] -40 degrees MUSE SYSTEM Calculated T [place] 39 degrees MUSE SYSTEM INTERPRETATION Normal sinus [...] athologist Signature pH Art 7.21 7.35 - [facility] (Critical) 7.45 [facility] Comment: Noted by survey instrument operator. pCO2 Art 50 (H) 35 - 45 mmHg [facility] pO2 Art 238 (H) 85 - [address] [facility] HCO3 Art 19.8 (L) 20.0 - 26.0 mmol/L [facility] BE Art -8.1 (L) -3.0 - 3.0 mmol/L [facility] Hgb Blood Gas 12.8 (L) 13.7 - 16.5 gm/dL [facility] O2HB Art 97.5 (H) 94.0 - 97.0 % [facility] COHB Art 0.5 % [facility] [...] 3.5 - 5.0 mmol/L [facility] Comment: Noted by survey instrument operator. Please note: Patients with WBC >100,000 may have falsely elevated Potassium levels. Contact the Clinical Chemistry L aboratory if there are any questions. ICa Whole Blood 1.07 (L) 1.15 - 1.33 mmol/L [facility] Comment: Note: ??Total bilirubin higher than 20 m g/dL may lead to falsely low ionized calcium. CL Whole Blood 107 98 - 107 mmol/L [facility] Gluc Whole Bld 270 (H) 65 - 199 mg/dL [facility] Comment: Diabetes: >=200 mg/dL plus symp toms. Lactate WB 4.9 (Critical) 0.5 - 2.2 mmol/L [facility] Comment: Noted by survey instrument operator. FIO2 Art 100 % [facility] PF Ratio Art 238 [facility] Specimen Anatomical Collection Method Collection Time Receive d Time (Source) Location / / Volume Laterality Blood specimen 07/07/2017 6:57 PM 017 6:57 (specimen) EST PM EST Daphne Shahid MD CHEMISTRY ORDERABLES Performing Organization Address City/State/ZIP Code Phon e Number [place] [id number]OS[address] LAB[address]ORY Drive (ABNORMAL) BLOOD GAS 2 ARTERIAL (07/07/2017 5:31 PM EST) P athologist Signature pH Art 7.29 7.35 - [facility] (Critical) 7.45 [facility] Comment: Noted by survey instrument operator. pCO2 Art 48 (H) 35 - 45 mmHg [facility] pO2 Art 137 (H) 85 - [address] [facility] HCO3 Art 22.4 20.0 - 26.0 mmol/L [facility] BE Art -4.3 (L) -3.0 - 3.0 mmol/L [facility] Hgb Blood Gas 10.0 (L) 13.7 - 16.5 gm/dL [facility] O2HB Art 97.3 (H) 94.0 - 97.0 % [facility] COHB Art 0.3 % [facility] [...] Blood 1.14 (L) 1.15 - 1.33 mmol/L [facility] Comment: Note: ??Total bilirubin higher [...] Organization Address City/State/[place] [address] Fibrinogen (07/07/2017 5:30 PM EST) P athologist Signature Fibrinogen 224 180 - 510 [facility] mg/dL [facility] Comment: Called by: JEET, [...] Perez MD HEMATOLOGY ORDERABLES Performing Organization Address City/[facility]/ZIP Code Phon e Number [address] APTT (07/07/2017 5:30 PM EST) P athologist Signature PTT 30 25 - 35 sec [facility] Comment: The recommended therapeutic range for fu ll dose, unfractionated heparin at [facility] is 80 ? 114 [...] Perez MD HEMATOLOGY ORDERABLES Performing Organization Address City/[facility] [place] [address] (ABNORMAL) Prothrombin Time (07/07/2017 5:30 PM EST) P athologist Signature PT 19.0 (H) 11.8 - 14.0 [facility] LABORATORY INR 1.6 (H) 0.9 - [...] Organization Address City/State/[place] [address] (ABNORMAL) Hemogram (07/07/2017 5:30 PM EST) athologist Signature WBC 19.6 (H) 4.0 - 9.5 [facility] x10(3)/[facility] LABORATORY RBC 3.08 (L) 4.58 - [facility] 5.54 [facility] x10(6)/[facility] LABORATORY Hemoglobin 9.2 (L) 13.7 - [facility] 16.5 gm/dL [facility]ORY Hematocrit 28.0 (L) 40.5 - [facility] 48.5 % [facility] Comment: This result has been called to MONICA MORAN by DONALD GROSSMAN on 07 07 2017 at 1759, and has been read back. MCV 90.9 82.9 - 93.1 [facility] LABORATORY MCH 29.9 27.5 - 32.1 pg [facility] MCHC 32.9 32.0 - 35.7 gm/dL [facility] LABORATORY Platelets 155 145 - 357 x10(3)/[facility] LABORATORY RDWSD 46.5 (H) 36.0 - 45.0 [facility] LABORATORY RDWCV 14.1 (H) 11.4 - 13.8 % [facility] LABORATORY MPV 9.5 7.6 - 12.9 [facility] LABORATORY nRBC % Auto 0.0 % [facility] LABORATORY nRBC Abs Auto 0.000 0.000 - 0.000 x10(3)/[facility] LABORATORY Specimen Anatomical Collection Method Collection Time Receive d Time (Source) Location / / Volume Laterality Blood specimen 07/07/2017 5:30 PM 017 5:34 (specimen) EST PM EST Resulting Agency Comment Spec In Lab Yifan Perez MD HEMATOLOGY ORDERABLES Performing Organization Address City/State/ZIP Code Phon e Number [address] Prepare Platelets, Apheresis (07/07/2017 5:00 PM EST) P athologist Signature Dispensed? Yes [facility] Specimen Anatomical Collection Method Collection Time Receive d Time (Source) Location / / Volume Laterality Blood specimen 07/07/2017 5:00 PM 017 4:58 (specimen) EST PM EST Daphne Shahid MD BLOOD BANK ORDERABLES Performing Organization Address City/[facility]/ZIP Code Phon e Number [address] Platelet count (07/07/2017 4:55 PM EST) athologist Signature Platelets 177 145 - 357 [facility] x10(3)/[facility] LABORATORY Plat Immature 1.5 0.0 - 7.4 [facility] % % [facility] Comment: Limitation of the Immature Platelet Frac tion (IPF)-May be less reliable when the platelet count is less than 67a518/u L due to statistical imprecision. The IPF [...] in a decreased state of production. References: [employer] The Clinical Value of the Immature Platelet Fraction (IPF) in Cell Recovery Document Number [id number] 12/2010 [employer] The Role of the Imm ature [...] City/State/ZIP Code Phon e Number [place] [id number] (ABNORMAL) Hemoglobin and Hematocrit, blood (07/07/2017 4:55 PM EST) P athologist Signature Hemoglobin 9.1 (L) 13.7 - 16.5 [facility] gm/dL [facility] Comment: This result has been called to MALKA MORAN by DONALD GROSSMAN on 07 07 2017 at 1734, and has been read back. Hematocrit 26.6 (L) 40.5 - 48.5 % [facility] Comment: This result has been [...] Organization Address City/State/[place] [address] (ABNORMAL) BLOOD GAS 2 ARTERIAL (07/07/2017 4:38 PM EST) Analysis Performed At Patho logist Time Signature pH Art 7.37 7.35 - [facility] 7.45 [facility] pCO2 Art 44 35 - 45 [facility] mmHg [facility]ORY pO2 Art 322 (H) 85 - 104 [facility] mmHg [facility] HCO3 Art 24.9 20.0 - [facility] 26.0 [facility] mmol/L [facility] LABORATORY BE Art -0.4 -3.0 - 3.0 [facility] mmol/L [facility]ORY Hgb Blood Gas 10.1 (L) 13.7 - [facility] 16.5 gm/dL [facility]ORY O2HB Art 98.7 (H) 94.0 - [facility] 97.0 % [facility]ORY COHB Art 0.1 % [facility] Comment: Nonsmokers: 0.5-1.5% COHB Smokers: [...] Blood 0.89 (Critical) 1.15 - 1.33 mmol/L [facility] Comment: Noted by survey instrument operator. Note: ??Total bilirubin higher than 20 m g/dL may lead to falsely low ionized calcium. CL Whole Blood 101 98 - 107 mmol/L [facility] Gluc Whole Bld 295 (H) 65 - 199 mg/dL [facility] LABORATORY Comment: Diabetes: >=200 mg/dL plus symp toms. Lactate WB 1.7 0.5 - 2.2 mmol/L [facility] LABOR[facility]ORY Specimen Anatomical Collection Method Collection Time Receive d Time (Source) Location / / Volume Laterality Blood specimen 07/07/2017 4:38 PM 017 4:38 (specimen) EST PM EST Daphne hSahid MD CHEMISTRY ORDERABLES Performing Organization Address City/State/[place] [address] (ABNORMAL) BLOOD GAS 2 VENOUS (07/07/2017 4:06 PM EST) Analysis Performed At Patho logist Time Signature pH Cody 7.31 (L) 7.32 - [facility] 7.42 [facility]ATORY pCO2 [place] 47 41 - 51 [facility] LABORATORY pO2 [place] 53 (H) 25 - 40 [facility] LABORATORY HCO3 [place] 22.7 mmol/L [facility] BE Cody -3.7 mmol/L [facility] Hgb Blood Gas 10.2 (L) 13.7 - [facility] 16.5 gm/dL [facility] O2HB [place] 81.0 % [facility] COHB Cody 1.0 % [facility] Comment: Nonsmokers: 0.5-1.5% COHB Smokers: [...] Blood 0.90 (Critical) 1.15 - 1.33 mmol/L [facility] Comment: Noted by survey instrument operator. Note: ??Total bilirubin higher than 20 m g/dL may lead to falsely low ionized calcium. CL Whole Blood 100 98 - 107 mmol/L [facility] Gluc Whole Bld 231 (H) 65 - 199 mg/dL [facility] Comment: Diabetes: >=200 mg/dL plus symp toms Lactate WB 1.1 0.5 - 2.2 mmol/L [facility] BGas Source Venous [facility] LABORATORY Specimen Anatomical Collection Method Collection Time Receive d Time (Source) Location / / Volume Laterality Blood specimen 07/07/2017 4:06 PM 017 4:06 (specimen) EST PM EST aDphne Shahid MD CHEMISTRY ORDERABLES Performing Organization Address City/State/[place] [address] (ABNORMAL) BLOOD GAS 2 ARTERIAL (07/07/2017 4:05 PM EST) Analysis Performed At Patho logist Time Signature pH Art 7.36 7.35 - [facility] 7.45 [facility] LABORATORY pCO2 Art 40 35 - 45 [facility] LABORATORY pO2 Art 282 (H) 85 - 104 [facility] LABORATORY HCO3 Art 22.1 20.0 - [facility] 26.0 [facility] mmol/[facility] LABORATORY BE Art -3.4 (L) -3.0 - 3.0 [facility] mmol/L [facility]ORY Hgb Blood Gas 10.2 (L) 13.7 - [facility] 16.5 gm/dL [facility] O2HB Art 98.4 (H) 94.0 - [facility] 97.0 % [facility] LABORATORY COHB Art 0.3 % [facility] Comment: Nonsmokers: 0.5-1.5% COHB Smokers: [...] Blood 0.86 (Critical) 1.15 - 1.33 mmol/L [facility] Comment: Noted by survey instrument operator. Note: ??Total bilirubin higher than 20 m g/dL may lead to falsely low ionized calcium. CL Whole Blood 101 98 - 107 mmol/L [facility] Gluc Whole Bld 260 (H) 65 - 199 mg/dL [facility] Comment: Diabetes: >=200 mg/dL plus symp toms. Lactate WB 1.4 0.5 - 2.2 mmol/L [facility] Specimen Anatomical Collection Method Collection Time Receive d Time (Source) Location / / Volume Laterality Blood specimen 07/07/2017 4:05 PM 017 4:05 (specimen) EST PM EST Daphne Shahid MD CHEMISTRY ORDERABLES Performing Organization Address City/State/[place] [address] (ABNORMAL) BLOOD GAS 2 ARTERIAL (07/07/2017 2:29 PM EST) Analysis Performed At Patho logist Time Signature pH Art 7.43 7.35 - [facility] 7.45 [facility]ATORY pCO2 Art 36 35 - 45 [facility] mmHg [facility] LAB[facility]ORY pO2 Art 221 (H) 85 - 104 [facility] mmHg [facility]ORY HCO3 Art 23.2 20.0 - [facility] 26.0 [facility] mmol/L [facility] LAB[facility]AT[facility] BE Art -1.2 -3.0 - 3.0 [facility] mmol/L [facility]ORY Hgb Blood Gas 13.9 13.7 - [facility] 16.5 gm/dL [facility] O2HB Art 97.8 (H) 94.0 - [facility] 97.0 % [facility]ORY COHB Art 1.1 % [facility] Comment: Nonsmokers: 0.5-1.5% COHB Smokers: Variable, but usually less than 10% Toxic: 20-30% COHB Lethal: Greater than 60% COHB METHB Art 0.3 <=1.5 % [facility] Na Whole Blood 139 135 - 145 mmol/L [facility] K Whole Blood 4.0 3.5 - 5.0 mmol/L [facility] Comment: Please note: Patients with WBC >100,000 may have falsely elevated Potassium levels. Contact the Clinical Chemistry L aboratory if there are any questions. ICa Whole Blood 1.11 (L) 1.15 - 1.33 mmol/L [facility] Comment: Note: ??Total bilirubin higher than 20 m g/dL may lead to falsely low ionized calcium. CL Whole Blood 104 98 - 107 mmol/L [facility] Gluc Whole Bld 184 65 - 199 mg/dL [facility] Comment: Diabetes: >=200 mg/dL plus symp toms. Lactate WB 1.5 0.5 - 2.2 mmol/L [facility] Specimen Anatomical Collection Method Collection Time Receive d Time (Source) Location / / Volume Laterality Blood specimen 07/07/2017 2:29 PM 017 2:29 (specimen) EST PM EST Daphne Shahid MD CHEMISTRY ORDERABLES Performing Organization Address City/[facility]/[place] [address] Prepare Coag Factors (Non-Hemophilia) (07/07/2017 1:25 PM EST) P athologist Signature Dispensed? Yes [facility] Specimen Anatomical Collection Method Collection Time Receive d Time (Source) Location / / Volume Laterality Blood specimen 07/07/2017 1:25 PM 017 1:21 (specimen) EST PM EST Daphne Shahid MD BLOOD BANK ORDERABLES Performing Organization Address City/[facility]/[place] [address] Prepare RBC (07/07/2017 1:10 PM EST) P athologist Signature Dispensed? Yes [facility] Specimen Anatomical Collection Method Collection Time Receive d Time (Source) Location / / Volume Laterality Blood specimen 07/07/2017 1:10 PM 017 1:05 (specimen) EST PM EST Daphne Shahid MD BLOOD BANK ORDERABLES Performing Organization Address City/[facility]/[place] [address] POCT Glucose (07/07/2017 11:56 AM EST) P athologist Signature POC Glucose 188 65 - 199 [facility] mg/dL [facility] Comment: Supplemental ranges: <140 mg/dL before meals <180 mg/dL all other times of the day Specimen Anatomical Collection Method Collection Time Receive d Time (Source) Location / / Volume Laterality Blood specimen 07/07/2017 11:56 7 (specimen) AM EST 11:56 AM EST Daphne Shahid MD POINT OF CARE TEST ORDERABLE S Performing Organization Address City/[facility]/[place] [address] POCT Glucose (07/07/2017 11:05 AM EST) athologist Signature POC Glucose 168 65 - 199 [place] mg/dL [facility] Comment: Supplemental ranges: <140 mg/dL before meals <180 mg/dL all other times of the day Specimen Anatomical Collection Method Collection Time Receive d Time (Source) Location / / Volume Laterality Blood specimen 07/07/2017 11:05 7 (specimen) AM EST 11:05 AM EST Daphne Shahid MD POINT OF CARE TEST ORDERABLE S Performing Organization Address City/State/ZIP Code Phon e Number [address] POCT Glucose (07/07/2017 10:02 AM EST) athologist Signature POC Glucose 191 65 - 199 [place] mg/dL [facility] Comment: Supplemental ranges: <140 mg/dL before meals <180 mg/dL all other times of the day Specimen Anatomical Collection Method Collection Time Receive d Time (Source) Location / / Volume Laterality Blood specimen 07/07/2017 10:02 7 (specimen) AM EST 10:02 AM EST Daphne Shahid MD POINT OF CARE TEST ORDERABLE S Performing Organization Address City/State/ZIP Code Phon e Number [address] POCT Glucose (07/07/2017 7:53 AM EST) athologist Signature POC Glucose 178 65 - 199 [facility] SU mg/dL [facility] Comment: Supplemental ranges: <140 mg/dL before meals <180 mg/dL all other times of the day Specimen Anatomical Collection Method Collection Time Receive d Time (Source) Location / / Volume Laterality Blood specimen 07/07/2017 7:53 AM 017 7:53 (specimen) EST AM EST Daphne Shahid MD POINT OF CARE TEST ORDERABLE S Performing Organization Address City/State/ZIP Code Phon e Number [address] POCT Glucose (07/07/2017 7:03 AM EST) athologist Signature POC Glucose 188 65 - 199 [facility] Comment: Supplemental ranges: <140 mg/dL before meals <180 mg/dL all other times of the day Specimen Anatomical Collection Method Collection Time Receive d Time (Source) Location / / Volume Laterality Blood specimen 07/07/2017 7:03 AM 017 7:03 (specimen) EST AM EST Daphne Shahid MD POINT OF CARE TEST ORDERABLE S Performing Organization Address City/State/ZIP Code Phon e Number [address] (ABNORMAL) POCT Glucose (07/07/2017 6:17 AM EST) athologist Signature POC Glucose 207 (H) 65 - 199 [facility] Comment: Supplemental ranges: <140 mg/dL before meals <180 mg/dL all other times of the day Specimen Anatomical Collection Method Collection Time Receive d Time (Source) Location / / Volume Laterality Blood specimen 07/07/2017 6:17 AM 017 6:17 (specimen) EST AM EST Daphne Shahid MD POINT OF CARE TEST ORDERABLE S Performing Organization Address City/[facility]/ZIP Code Phon e Number [address] Differential, Automated (07/07/2017 5:15 AM EST) athologist [facility] Neutrophils % 69.7 % [facility] Neutr Abs (ANC) 5.32 1.70 - [facility] 6.10 [facility] x10(3)/[facility] LABORATORY Lymphocytes % 16.3 % [facility] Lymphocytes Abs 1.2 0.9 - 3.2 [facility] x10(3)/[facility] LABORATORY Monocytes % 10.5 % [facility] Monocyte Abs 0.8 0.3 - 0.9 [facility] x10(3)/[facility] LABORATORY Eosinophils % 2.5 % [facility] Eosinophils Abs 0.2 0.0 - 0.4 [facility] x10(3)/[facility] LABORATORY Basophils % 0.7 % [facility] Basophils Abs 0.0 0.0 - 0.1 [facility] x10(3)/[facility] LABORATORY Immature Gran % 0.30 [...] Melisa Gran Abs 0.02 0.00 - 0.04 x10(3)/[facility] MAR Y [facility] LABORATORY Specimen Anatomical Collection Method Collection Time Receive d Time (Source) Location / / Volume Laterality Blood specimen 07/07/2017 5:15 AM 017 5:34 (specimen) EST AM EST Resulting Agency Comment Spec In Lab Daphne Shahid MD HEMATOLOGY ORDERABLES Performing Organization Address City/State/[place] [address] (ABNORMAL) Hemogram (07/07/2017 5:15 AM EST) Analysis Performed At Patho logist Time Signature WBC 7.6 4.0 - 9.5 [facility] x10(3)/[facility] LABORATORY RBC 4.82 4.58 - [facility] 5.54 [facility] x10(6)/[facility] LABORATORY Hemoglobin 14.4 13.7 - [facility] 16[facility] gm/dL [facility]ORY Hematocrit 42.1 40.5 - [facility] 48.5 % [facility]ORY MCV 87.3 82.9 - [facility] 93.1 [facility] LABORATORY MCH 29.9 27.5 - [place] 32.1 pg [facility] LABORATORY MCHC 34.2 32.0 - [facility] 35.7 gm/dL [facility]ORY Platelets 188 145 - 357 [facility] x10(3)/[facility] LABORATORY RDWSD 45.1 (H) 36.0 - [facility] SU 45.0 [facility] LABORATORY RDWCV 14.3 (H) 11.4 - [facility] SU 13.8 % [facility] LABORATORY MPV 9.4 7.6 - 12.9 [facility] LABORATORY nRBC % Auto 0.0 % [facility] nRBC Abs Auto 0.000 0.000 - [place] 0.000 [facility] x10(3)/[facility] LABORATORY Specimen Anatomical Collection Method Collection Time Receive d Time (Source) Location / / Volume Laterality Blood specimen 07/07/2017 5:15 AM 017 5:34 (specimen) EST AM EST Resulting Agency Comment Spec In Lab Daphne Shahid MD HEMATOLOGY ORDERABLES Performing Organization Address City/[facility]/ZIP Code Phon e Number [address] (ABNORMAL) APTT (07/07/2017 5:15 AM EST) P athologist Signature PTT 69 (H) 25 - 35 sec [facility] Comment: The recommended therapeutic range for fu ll dose, unfractionated heparin at [facility] is 80 ? 114 [...] Shahid MD HEMATOLOGY ORDERABLES Performing Organization Address City/[facility]/ZIP Code Phon e Number [address] Magnesium (07/07/2017 5:15 AM EST) P athologist Signature Magnesium 0.94 0.69 - 1.07 [facility] mmol/L [facility] LABORATORY Specimen Anatomical Collection Method Collection Time Receive d Time (Source) Location / / Volume Laterality Blood specimen 07/07/2017 5:15 AM 017 5:34 (specimen) EST AM EST Resulting Agency Comment Spec In Lab Daphne Shahid MD CHEMISTRY ORDERABLES Performing Organization Address City/[facility]/[place] [address] (ABNORMAL) Basic Metabolic Panel (non-fasting) (07/07/2017 5:15 AM EST) P athologist Signature Glucose Lvl 203 (H) 65 - 199 [facility] mg/dL [facility]ORY Comment: Diabetes: >=200 mg/dL plus symp toms BUN 15 10 - 20 mg/dL [facility] LABORATORY Creatinine 1.09 0.80 - 1.50 mg/dL [facility]ORY Sodium 142 135 - 145 mmol/L [facility] Potassium 4.4 3.5 - 5.0 mmol/L [facility] Comment: Please note: ??Patients with WBC >100,00 0 may have falsely elevated Potassium levels. ??For accurate Potassium quantif ication in these patients send serum separator tube (gold top) for subsequent determinations. ??Contact the Clinical Chemistry Laboratory if there are any qu estions. Chloride 102 98 - 107 mmol/L [facility] CO2 26 22 - 31 mmol/L [facility] Anion Gap 14 5 - [...] or in patients with acute kidney failure. [email or web address] Specimen Anatomical Collection Method Collection Time Receive d Time (Source) Location / / Volume Laterality Blood specimen 07/07/2017 5:15 AM 017 5:34 (specimen) EST AM EST Resulting Agency Comment Spec In Lab Daphne Shahid MD CHEMISTRY ORDERABLES Performing Organization Address City/[facility]/[place] [address] (ABNORMAL) Cardiac Enzymes (LEB/CGP) (07/07/2017 5:15 AM EST) athologist Signature Troponin-T 2.07 (H) 0.00 - [place] 0.00 ng/mL [facility] Comment: The 99th percentile [...] additional sample may be indicated. Reference: Third [place] Definition of Myocardial Infarction. Journal of the [place] [employer] 2012;60:1581-98 CK, Total 88 0 - 200 unit/L [facility] Specimen Anatomical Collection Method Collection Time Receive d Time (Source) Location / / Volume Laterality Blood specimen 07/07/2017 5:15 AM 017 5:34 (specimen) EST AM EST Resulting Agency Comment Spec In Lab Daphne Shahid MD CHEMISTRY ORDERABLES Performing Organization Address City/State/ZIP Code Phon e Number [address] POCT Glucose (07/07/2017 5:01 AM EST) athologist Signature POC Glucose 182 65 - 199 [facility] mg/dL [facility] Comment: Supplemental ranges: <140 mg/dL before meals <180 mg/dL all other times of the day Specimen Anatomical Collection Method Collection Time Receive d Time (Source) Location / / Volume Laterality Blood specimen 07/07/2017 5:01 AM 017 5:01 (specimen) EST AM EST Daphne Shahid MD POINT OF CARE TEST ORDERABLE S Performing Organization Address City/State/[place] [address] POCT Glucose (07/07/2017 4:08 AM EST) athologist Signature POC Glucose 199 65 - 199 [place] mg/dL [facility] Comment: Supplemental ranges: <140 mg/dL before meals <180 mg/dL all other times of the day Specimen Anatomical Collection Method Collection Time Receive d Time (Source) Location / / Volume Laterality Blood specimen 07/07/2017 4:08 AM 017 4:08 (specimen) EST AM EST Daphne Shahid MD POINT OF CARE TEST ORDERABLE S Performing Organization Address City/State/ZIP Code Phon e Number [address] POCT Glucose (07/07/2017 3:03 AM EST) athologist Signature POC Glucose 188 65 - 199 [place] mg/dL [facility] Comment: Supplemental ranges: <140 mg/dL before meals <180 mg/dL all other times of the day Specimen Anatomical Collection Method Collection Time Receive d Time (Source) Location / / Volume Laterality Blood specimen 07/07/2017 3:03 AM 017 3:03 (specimen) EST AM EST Daphne Shahid MD POINT OF CARE TEST ORDERABLE S Performing Organization Address City/State/[place] [address] (ABNORMAL) POCT Glucose (07/07/2017 2:08 AM EST) P athologist Signature POC Glucose 200 (H) 65 - 199 [place] mg/dL [facility] Comment: Supplemental ranges: <140 mg/dL before meals <180 mg/dL all other times of the day Specimen Anatomical Collection Method Collection Time Receive d Time (Source) Location / / Volume Laterality Blood specimen 07/07/2017 2:08 AM 017 2:08 (specimen) EST AM EST Daphne Shahid MD POINT OF CARE TEST ORDERABLE S Performing Organization Address City/State/[place] [address] (ABNORMAL) POCT Glucose (07/07/2017 1:31 AM EST) P athologist Signature POC Glucose 209 (H) 65 - 199 [facility] mg/dL [facility] Comment: Supplemental ranges: <140 mg/dL before meals <180 mg/dL all other times of the day Specimen Anatomical Collection Method Collection Time Receive d Time (Source) Location / / Volume Laterality Blood specimen 07/07/2017 1:31 AM 017 1:31 (specimen) EST AM EST Daphne Shahid MD POINT OF CARE TEST ORDERABLE S Performing Organization Address City/[facility]/[place] [address] XR Chest PA or [...] Signature POC Glucose 161 65 - 199 [facility] mg/dL [facility] Comment: Supplemental ranges: <140 mg/dL before meals <180 mg/dL all other times of the day Specimen Anatomical Collection Method Collection Time Receive d Time (Source) Location / / Volume Laterality Blood specimen 07/07/2017 12:07 7 (specimen) AM EST 12:07 AM EST Daphne Shahid MD POINT OF CARE TEST ORDERABLE S Performing Organization Address City/[facility]/[place] [address] (ABNORMAL) APTT (07/07/2017 12:00 AM EST) athologist Signature PTT 103 (H) 25 - 35 sec [facility] Comment: The recommended therapeutic range for fu ll dose, unfractionated heparin at [facility] is 80 ? 114 [...] Organization Address City/State/ZIP Code Phon e Number [address] POCT Glucose (07/06/2017 9:55 PM EST) athologist Signature POC Glucose 109 65 - 199 [facility] mg/dL [facility] LABORATORY Comment: Supplemental ranges: <140 mg/dL before meals <180 mg/dL all other times of the day Specimen Anatomical Collection Method Collection Time Receive d Time (Source) Location / / Volume Laterality Blood specimen 07/06/2017 9:55 PM 017 9:55 (specimen) EST PM EST Daphne Shahid MD POINT OF CARE TEST ORDERABLE S Performing Organization Address City/State/ZIP Code Phon e Number [address] POCT Glucose (07/06/2017 9:04 PM EST) athologist Signature POC Glucose 120 65 - 199 [facility] LABORATORY Comment: Supplemental ranges: <140 mg/dL before meals <180 mg/dL all other times of the day Specimen Anatomical Collection Method Collection Time Receive d Time (Source) Location / / Volume Laterality Blood specimen 07/06/2017 9:04 PM 017 9:04 (specimen) EST PM EST Daphne Shahid MD POINT OF CARE TEST ORDERABLE S Performing Organization Address City/State/ZIP Code Phon e Number [address] POCT Glucose (07/06/2017 7:45 PM EST) athologist Signature POC Glucose 158 65 - 199 [facility] LABORATORY Comment: Supplemental ranges: <140 mg/dL before meals <180 mg/dL all other times of the day Specimen Anatomical Collection Method Collection Time Receive d Time (Source) Location / / Volume Laterality Blood specimen 07/06/2017 7:45 PM 017 7:45 (specimen) EST PM EST Daphne Shahid MD POINT OF CARE TEST ORDERABLE S Performing Organization Address City/State/ZIP Code Phon e Number [address] Potassium (07/06/2017 7:40 PM EST) athologist Signature Potassium 3.9 3.5 - 5.0 [facility] mmol/L [facility] LABORATORY Comment: Please note: ??Patients [...] Organization Address City/State/[place] [address] (ABNORMAL) Cardiac Enzymes (LEB/CGP) (07/06/2017 7:40 PM EST) athologist Signature Troponin-T 2.27 (H) 0.00 - [facility] 0.00 ng/mL [facility] LABORATORY Comment: The 99th percentile [...] additional sample may be indicated. Reference: Third [place] Definition of Myocardial Infarction. Journal of the [place] [employer] 2012;60:1581-98 CK, Total 93 0 - 200 unit/L [facility] LABORATORY Specimen Anatomical Collection Method Collection Time Receive d Time (Source) Location / / Volume Laterality Blood specimen 07/06/2017 7:40 PM 017 7:52 (specimen) EST PM EST Resulting Agency Comment Spec In Lab Daphne Shahid MD CHEMISTRY ORDERABLES Performing Organization Address City/[facility] [place] [address] (ABNORMAL) POCT Glucose (07/06/2017 7:13 PM EST) athologist Signature POC Glucose 200 (H) 65 - 199 [facility] LABORATORY Comment: Supplemental ranges: <140 mg/dL before meals <180 mg/dL all other times of the day Specimen Anatomical Collection Method Collection Time Receive d Time (Source) Location / / Volume Laterality Blood specimen 07/06/2017 7:13 PM 017 7:13 (specimen) EST PM EST Daphne Shahid MD POINT OF CARE TEST ORDERABLE S Performing Organization Address [facility] [place] [address] (ABNORMAL) APTT (07/06/2017 6:15 PM EST) athologist Signature PTT 94 (H) 25 - 35 sec [facility] LABORATORY Comment: The recommended therapeutic range for fu ll dose, unfractionated heparin at [facility] is 80 ? 114 [...] Shahid MD HEMATOLOGY ORDERABLES Performing Organization Address City/[facility] [place] [address] (ABNORMAL) POCT Glucose (07/06/2017 6:03 PM EST) athologist Signature POC Glucose 236 (H) 65 - 199 [facility] mg/dL [facility] LABORATORY Comment: Supplemental ranges: <140 mg/dL before meals <180 mg/dL all other times of the day Specimen Anatomical Collection Method Collection Time Receive d Time (Source) Location / / Volume Laterality Blood specimen 07/06/2017 6:03 PM 017 6:03 (specimen) EST PM EST Daphne Shahid MD POINT OF CARE TEST ORDERABLE S Performing Organization Address City/State/[place] [address] (ABNORMAL) POCT Glucose (07/06/2017 5:01 PM EST) P athologist Signature POC Glucose 235 (H) 65 - 199 [place] [facility] mg/dL [facility] LABORATORY Comment: Supplemental ranges: <140 mg/dL before meals <180 mg/dL all other times of the day Specimen Anatomical Collection Method Collection Time Receive d Time (Source) Location / / Volume Laterality Blood specimen 07/06/2017 5:01 PM 017 5:01 (specimen) EST PM EST Daphne Shahid MD POINT OF CARE TEST ORDERABLE S Performing Organization Address City/State/[place] [address] (ABNORMAL) POCT Glucose (07/06/2017 4:06 PM EST) P athologist Signature POC Glucose 202 (H) 65 - 199 [place] [facility] mg/dL [facility] LABORATORY Comment: Supplemental ranges: <140 mg/dL before meals <180 mg/dL all other times of the day Specimen Anatomical Collection Method Collection Time Receive d Time (Source) Location / / Volume Laterality Blood specimen 07/06/2017 4:06 PM 017 4:06 (specimen) EST PM EST Daphne Shahid MD POINT OF CARE TEST ORDERABLE S Performing Organization Address City/State/[place] [address] POCT Glucose (07/06/2017 2:59 PM EST) P athologist Signature POC Glucose 178 65 - 199 [place] [facility] mg/dL [facility] LABORATORY Comment: Supplemental ranges: <140 mg/dL before meals <180 mg/dL all other times of the day Specimen Anatomical Collection Method Collection Time Receive d Time (Source) Location / / Volume Laterality Blood specimen 07/06/2017 2:59 PM 017 2:59 (specimen) EST PM EST Daphne Shahid MD POINT OF CARE TEST ORDERABLE S Performing Organization Address City/State/[place] [address] (ABNORMAL) Cardiac Enzymes (LEB/CGP) (07/06/2017 2:10 PM EST) athologist Signature Troponin-T 2.34 (H) 0.00 - [facility] 0.00 ng/mL [facility] LABORATORY Comment: The 99th percentile [...] additional sample may be indicated. Reference: Third [place] Definition of Myocardial Infarction. Journal of the [place] [employer] 2012;60:1581-98 CK, Total 101 0 - 200 unit/L [facility] LABORATORY Specimen Anatomical Collection Method Collection Time Receive d Time (Source) Location / / Volume Laterality Blood specimen 07/06/2017 2:10 PM 017 2:26 (specimen) EST PM EST Resulting Agency Comment Spec In Lab Daphne Shahid MD CHEMISTRY ORDERABLES Performing Organization Address City/State/ZIP Code Phon e Number [address] POCT Glucose (07/06/2017 2:08 PM EST) athologist Signature POC Glucose 192 65 - 199 [place] [facility] mg/dL [facility] LABORATORY Comment: Supplemental ranges: <140 mg/dL before meals <180 mg/dL all other times of the day Specimen Anatomical Collection Method Collection Time Receive d Time (Source) Location / / Volume Laterality Blood specimen 07/06/2017 2:08 PM 017 2:08 (specimen) EST PM EST Daphne Shahid MD POINT OF CARE TEST ORDERABLE S Performing Organization Address City/[facility]/ZIP Code Phon e Number [address] POCT Glucose (07/06/2017 1:04 PM EST) athologist Signature POC Glucose 162 65 - 199 [place] [facility] mg/dL [facility] LABORATORY Comment: Supplemental ranges: <140 mg/dL before meals <180 mg/dL all other times of the day Specimen Anatomical Collection Method Collection Time Receive d Time (Source) Location / / Volume Laterality Blood specimen 07/06/2017 1:04 PM 017 1:04 (specimen) EST PM EST Daphne Shahid MD POINT OF CARE TEST ORDERABLE S Performing Organization Address City/[facility]/[place] [address] POCT Glucose (07/06/2017 12:05 PM EST) athologist Signature POC Glucose 196 65 - 199 [place] [facility] mg/dL [facility] LABORATORY Comment: Supplemental ranges: <140 mg/dL before meals <180 mg/dL all other times of the day Specimen Anatomical Collection Method Collection Time Receive d Time (Source) Location / / Volume Laterality Blood specimen 07/06/2017 12:05 7 (specimen) PM EST 12:05 PM EST Daphne Shahid MD POINT OF CARE TEST ORDERABLE S Performing Organization Address City/State/[place] [address] EKG 12 Lead (07/06/2017 12:00 PM EST) Component Value Ref Range Test Analysis Performed Pathologis t Method Time At Signature Ventricular rate 91 BPM MUSE SYSTEM Atrial Rate 91 BPM MUSE SYSTEM P-R Interval 140 ms MUSE SYSTEM QRS Duration 94 ms MUSE SYSTEM Q-T Interval 394 ms MUSE SYSTEM QTC Calculated 484 ms MUSE SYSTEM (Bezet) Calculated P [place] 36 degrees MUSE SYSTEM Calculated R [place] -19 degrees MUSE SYSTEM Calculated T [place] 104 degrees MUSE SYSTEM INTERPRETATION Normal sinus rhythm MUSE SYSTEM 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) ST & T wave abnormality, consider lateral ischemia Abnormal ECG When compared with ECG of 05-JUL-2017 20:39, No significant change was found Confirmed by MD Luci, Taurus Braun ([id number]) on 07/06/2017 5:07:33 PM Specimen Anatomical Collection Method Collection Time Receive d Time (Source) Location / / Volume Laterality 07/06/2017 12:00 07/06/2017 5:07 PM EST PM EST Daphne Shahid MD ECG ORDERABLES Performing Organization Address City/State/ZIP Code Phon e Number MUSE SYSTEM ABORH Recheck Status (07/06/2017 12:00 PM EST) [facility] Method Time Signature ABORH Type Completed [facility] LABORATORY Specimen Anatomical Collection Method Collection Time Receive d Time (Source) Location / / Volume Laterality Blood specimen 07/06/2017 12:00 7 (specimen) PM EST 12:24 PM EST Resulting Agency Comment Spec In Lab Daphne Shahid MD BLOOD BANK ORDERABLES Performing Organization Address City/State/[place] [address] Antibody screen (07/06/2017 12:00 PM EST) [facility] Method Time Signature Ab Screen Negative [facility] LABORATORY Expires at 07/09/2017 [place] ZHAOS[place] 2006 on: [facility] LABORATORY Specimen Anatomical Collection Method Collection Time Receive d Time (Source) Location / / Volume Laterality Blood specimen 07/06/2017 12:00 12/12/201 7 (specimen) PM EST 12:24 PM EST Resulting Agency Comment Spec In Lab Daphne Shahid MD BLOOD BANK ORDERABLES Performing Organization Address City/[facility]/[place] [address] ABO/Rh Typing (07/06/2017 12:00 PM EST) P athologist Signature ABORh Type O Pos [facility] LABORATORY Specimen Anatomical Collection Method Collection Time Receive d Time (Source) Location / / Volume Laterality Blood specimen 07/06/2017 12:00 7 (specimen) PM EST 12:24 PM EST Resulting Agency Comment Spec In Lab Daphne Shahid MD BLOOD BANK ORDERABLES Performing Organization Address [facility] [place] [address] Prothrombin Time (07/06/2017 11:24 AM EST) P athologist Signature PT 13.3 11.8 - 14.0 [facility] LABORATORY INR 1.0 0.9 - 1.1 [facility] LABORATORY [...] Shahid MD HEMATOLOGY ORDERABLES Performing Organization Address City/[facility]/[place] [address] (ABNORMAL) APTT (07/06/2017 11:24 AM EST) P athologist Signature PTT 52 (H) 25 - 35 sec [facility] LABORATORY Comment: The recommended therapeutic range for fu ll dose, unfractionated heparin at [facility] is 80 ? 114 [...] Organization Address City/State/ZIP Code Phon e Number [address] POCT Glucose (07/06/2017 11:02 AM EST) athologist Signature POC Glucose 187 65 - 199 [facility] mg/dL [facility] LABORATORY Comment: Supplemental ranges: <140 mg/dL before meals <180 mg/dL all other times of the day Specimen Anatomical Collection Method Collection Time Receive d Time (Source) Location / / Volume Laterality Blood specimen 07/06/2017 11:02 7 (specimen) AM EST 11:02 AM EST Daphne Shahid MD POINT OF CARE TEST ORDERABLE S Performing Organization Address City/[facility]/ZIP Code Phon e Number [address] POCT Glucose (07/06/2017 10:18 AM EST) athologist Signature POC Glucose 193 65 - 199 [facility] mg/dL [facility] LABORATORY Comment: Supplemental ranges: <140 mg/dL before meals <180 mg/dL all other times of the day Specimen Anatomical Collection Method Collection Time Receive d Time (Source) Location / / Volume Laterality Blood specimen 07/06/2017 10:18 7 (specimen) AM EST 10:18 AM EST Daphne Shahid MD POINT OF CARE TEST ORDERABLE S Performing Organization Address City/[facility]/ZIP Code Phon e Number [address] POCT Glucose (07/06/2017 9:25 AM EST) P athologist Signature POC Glucose 182 65 - 199 [facility] mg/dL [facility] LABORATORY Comment: Supplemental ranges: <140 mg/dL before meals <180 mg/dL all other times of the day Specimen Anatomical Collection Method Collection Time Receive d Time (Source) Location / / Volume Laterality Blood specimen 07/06/2017 9:25 AM 017 9:25 (specimen) EST AM EST Daphne Shahid MD POINT OF CARE TEST ORDERABLE S Performing Organization Address City/State/[place] [address] (ABNORMAL) Cardiac Enzymes (LEB/CGP) (07/06/2017 8:10 AM EST) P athologist Signature Troponin-T 2.26 (H) 0.00 - [place] [facility] 0.00 ng/mL [facility] LABORATORY Comment: The 99th percentile [...] additional sample may be indicated. Reference: Third [place] Definition of Myocardial Infarction. Journal of the [place] [employer] 2012;60:1581-98 CK, Total 124 0 - 200 unit/L [facility] LABORATORY Specimen Anatomical Collection Method Collection Time Receive d Time (Source) Location / / Volume Laterality Blood specimen 07/06/2017 8:10 AM 017 8:23 (specimen) EST AM EST Resulting Agency Comment Spec In Lab Daphne Shahid MD CHEMISTRY ORDERABLES Performing Organization Address City/State/ZIP Code Phon e Number [address] Magnesium (07/06/2017 8:10 AM EST) athologist Signature Magnesium 0.84 0.69 - 1.07 [facility] mmol/L [facility] LABORATORY Specimen Anatomical Collection Method Collection Time Receive d Time (Source) Location / / Volume Laterality Blood specimen 07/06/2017 8:10 AM 017 8:21 (specimen) EST AM EST Resulting Agency Comment Spec In Lab Daphne Shahid MD CHEMISTRY ORDERABLES Performing Organization Address City/[facility] Code Phon e Number [address] (ABNORMAL) Basic Metabolic Panel (non-fasting) (07/06/2017 8:10 AM EST) athologist Signature Glucose Lvl 199 65 - 199 [facility] mg/dL [facility] LABORATORY Comment: Diabetes: >=200 mg/dL plus symp toms BUN 16 10 - 20 mg/dL [facility] LABORATORY Creatinine 1.04 0.80 - 1.50 mg/dL [facility] LABORATORY Sodium 141 135 - 145 mmol/L [facility] LABORATORY Potassium 4.5 3.5 - 5.0 mmol/L [facility] LABORATORY Comment: Please note: ??Patients with WBC >100,00 0 may have falsely elevated Potassium levels. ??For accurate Potassium quantif ication in these patients send serum separator tube (gold top) for subsequent determinations. ??Contact the Clinical Chemistry Laboratory if there are any qu estions. Chloride 101 98 - 107 mmol/L [facility] [...] or in patients with acute kidney failure. [email or web address]/DHnkdep http://biNu/DHMCnkf Specimen Anatomical Collection Method Collection Time Receive d Time (Source) Location / / Volume Laterality Blood specimen 07/06/2017 8:10 AM 017 8:21 (specimen) EST AM EST Resulting Agency Comment Spec In Lab Daphne Shahid MD CHEMISTRY ORDERABLES Performing Organization Address City/[facility]/ZIP Code Phon e Number [address] POCT Glucose (07/06/2017 7:34 AM EST) P athologist Signature POC Glucose 198 65 - 199 [facility] mg/dL [facility] LABORATORY Comment: Supplemental ranges: <140 mg/dL before meals <180 mg/dL all other times of the day Specimen Anatomical Collection Method Collection Time Receive d Time (Source) Location / / Volume Laterality Blood specimen 07/06/2017 7:34 AM 017 7:34 (specimen) EST AM EST Daphne Shahid MD POINT OF CARE TEST ORDERABLE S Performing Organization Address City/[facility]/ZIP Code Phon e Number [address] POCT Glucose (07/06/2017 7:03 AM EST) P athologist Signature POC Glucose 181 65 - 199 [facility] LABORATORY Comment: Supplemental ranges: <140 mg/dL before meals <180 mg/dL all other times of the day Specimen Anatomical Collection Method Collection Time Receive d Time (Source) Location / / Volume Laterality Blood specimen 07/06/2017 7:03 AM 017 7:03 (specimen) EST AM EST Daphne Shahid MD POINT OF CARE TEST ORDERABLE S Performing Organization Address City/State/[place] [address] XR Chest PA or [...] Signature POC Glucose 172 65 - 199 [facility] mg/dL [facility] LABORATORY Comment: Supplemental ranges: <140 mg/dL before meals <180 mg/dL all other times of the day Specimen Anatomical Collection Method Collection Time Receive d Time (Source) Location / / Volume Laterality Blood specimen 07/06/2017 6:21 AM 017 6:21 (specimen) EST AM EST Daphne Shahid MD POINT OF CARE TEST ORDERABLE S Performing Organization Address City/[facility]/ZIP Code Phon e Number [address] POCT Glucose (07/06/2017 5:08 AM EST) athologist Signature POC Glucose 154 65 - 199 [place] [facility] mg/dL [facility] LABORATORY Comment: Supplemental ranges: <140 mg/dL before meals <180 mg/dL all other times of the day Specimen Anatomical Collection Method Collection Time Receive d Time (Source) Location / / Volume Laterality Blood specimen 07/06/2017 5:08 AM 017 5:08 (specimen) EST AM EST Daphne Shahid MD POINT OF CARE TEST ORDERABLE S Performing Organization Address City/State/ZIP Code Phon e Number [address] POCT Glucose (07/06/2017 4:05 AM EST) athologist Signature POC Glucose 142 65 - 199 [facility] LABORATORY Comment: Supplemental ranges: <140 mg/dL before meals <180 mg/dL all other times of the day Specimen Anatomical Collection Method Collection Time Receive d Time (Source) Location / / Volume Laterality Blood specimen 07/06/2017 4:05 AM 017 4:05 (specimen) EST AM EST Daphne Shahid MD POINT OF CARE TEST ORDERABLE S Performing Organization Address City/State/ZIP Code Phon e Number [address] POCT Glucose (07/06/2017 3:00 AM EST) athologist Signature POC Glucose 116 65 - 199 [facility] LABORATORY Comment: Supplemental ranges: <140 mg/dL before meals <180 mg/dL all other times of the day Specimen Anatomical Collection Method Collection Time Receive d Time (Source) Location / / Volume Laterality Blood specimen 07/06/2017 3:00 AM 017 3:00 (specimen) EST AM EST Daphne Shahid MD POINT OF CARE TEST ORDERABLE S Performing Organization Address City/[facility]/[place] [address] Potassium (07/06/2017 2:20 AM EST) athologist Signature Potassium 3.9 3.5 - 5.0 [facility] mmol/L [facility] LABORATORY Comment: Please note: ??Patients [...] Shahid MD CHEMISTRY ORDERABLES Performing Organization Address City/[facility]/ZIP [facility] Phon e Number [address] Differential, Automated (07/06/2017 2:20 AM EST) athologist Signature Neutrophils % 72.9 % [facility] LABORATORY Neutr Abs (ANC) 5.53 1.70 - [facility] 6.10 [facility] x10(3)/[facility] LABORATORY Lymphocytes % 16.4 % [facility] LABORATORY Lymphocytes Abs 1.2 0.9 - 3.2 [facility] x10(3)/[facility] LABORATORY Monocytes % 9.4 % [facility] LABORATORY Monocyte Abs 0.7 0.3 - 0.9 [facility] x10(3)/[facility] LABORATORY Eosinophils % 0.5 % [facility] LABORATORY Eosinophils Abs 0.0 0.0 - 0.4 [facility] x10(3)/[facility] LABORATORY Basophils % 0.4 % [facility] LABORATORY Basophils Abs 0.0 0.0 - 0.1 [facility] x10(3)/[facility] LABORATORY Immature Gran % 0.40 [...] Melisa Gran Abs 0.03 0.00 - 0.04 x10(3)/[facility] MAR Y [facility] LABORATORY Specimen Anatomical Collection Method Collection Time Receive d Time (Source) Location / / Volume Laterality Blood specimen 07/06/2017 2:20 AM 017 2:33 (specimen) EST AM EST Resulting Agency Comment Spec In Lab Daphne Shahid MD HEMATOLOGY ORDERABLES Performing Organization Address City/State/[place] [address] (ABNORMAL) Hemogram (07/06/2017 2:20 AM EST) Analysis Performed At Patho logist Time Signature WBC 7.6 4.0 - 9.5 [facility] x10(3)/[facility] LABORATORY RBC 4.52 (L) 4.58 - [facility] 5.54 [facility] x10(6)/[facility] LABORATORY Hemoglobin 13.4 (L) 13.7 - [facility] 16.5 gm/dL [facility] LABORATORY Hematocrit 39.7 (L) 40.5 - [facility] SU 48.5 % [facility] LABORATORY MCV 87.8 82.9 - [facility] 93.1 [facility] LABORATORY MCH 29.6 27.5 - [place] 32.1 pg [facility] LABORATORY MCHC 33.8 32.0 - [facility] 35.7 gm/dL [facility] LABORATORY Platelets 189 145 - 357 [facility] x10(3)/[facility] LABORATORY RDWSD 45.6 (H) 36.0 - [facility] SU 45.0 [facility] LABORATORY RDWCV 14.3 (H) 11.4 - [facility] 13.8 % [facility] LABORATORY MPV 9.1 7.6 - 12.9 [facility] LABORATORY nRBC % Auto 0.0 % [facility] LABORATORY nRBC Abs Auto 0.000 0.000 - [place] 0.000 [facility] x10(3)/[facility] LABORATORY Specimen Anatomical Collection Method Collection Time Receive d Time (Source) Location / / Volume Laterality Blood specimen 07/06/2017 2:20 AM 017 2:33 (specimen) EST AM EST Resulting Agency Comment Spec In Lab Daphne Shahid MD HEMATOLOGY ORDERABLES Performing Organization Address City/State/ZIP Code Phon e Number [address] (ABNORMAL) APTT (07/06/2017 2:20 AM EST) P athologist Signature PTT 52 (H) 25 - 35 sec [facility] Comment: The recommended therapeutic range for fu ll dose, unfractionated heparin at [facility] is 80 ? 114 [...] Organization Address City/State/[place] [address] POCT Glucose (07/06/2017 2:20 AM EST) P athologist Signature POC Glucose 115 65 - 199 [facility] mg/dL [facility] Comment: Supplemental ranges: <140 mg/dL before meals <180 mg/dL all other times of the day Specimen Anatomical Collection Method Collection Time Receive d Time (Source) Location / / Volume Laterality Blood specimen 07/06/2017 2:20 AM 017 2:20 (specimen) EST AM EST Daphne Shahid MD POINT OF CARE TEST ORDERABLE S Performing Organization Address City/State/[place] [address] (ABNORMAL) Cardiac Enzymes (LEB/CGP) (07/06/2017 2:20 AM EST) P athologist Signature Troponin-T 2.13 (H) 0.00 - [place] 0.00 ng/mL [facility] Comment: The 99th percentile [...] additional sample may be indicated. Reference: Third [place] Definition of Myocardial Infarction. Journal of the [place] College [employer]iology 2012;60:1581-98 CK, Total 129 0 - 200 unit/L [facility] Specimen Anatomical Collection Method Collection Time Receive d Time (Source) Location / / Volume Laterality Blood specimen 07/06/2017 2:20 AM 017 2:33 (specimen) EST AM EST Resulting Agency Comment Spec In Lab Daphne Shahid MD CHEMISTRY ORDERABLES Performing Organization Address City/State/[place] [address] (ABNORMAL) Hemoglobin A1c (07/06/2017 2:20 AM EST) Analysis Performed At Patho logist Time Signature Hemoglobin A1C 6.8 (H) 4.3 - 5.6 [place] [facility] LABORATORY Comment: Reference Range: 4.3 - [...] S67-91 Est Avg Gluc See note mg/dL [place] [...] with hemoglobinopathies. Additional resources are available on [facility] ADA website. Macario HAMMOND, Ruthann J, Deysi R, et al. ??Tr anslating the A1C assay into estimated average glucose values. ??Diabetes Care 2008:31(8):1873-0571. Specimen Anatomical Collection Method Collection Time Receive d Time (Source) Location / / Volume Laterality Blood specimen 07/06/2017 2:20 AM 017 2:34 (specimen) EST AM EST Resulting Agency Comment Spec In Lab Daphne Shahid MD CHEMISTRY ORDERABLES Performing Organization Address City/State/ZIP [place] [address] (ABNORMAL) Lipid Panel (07/06/2017 2:20 AM EST) [facility] Method Time Signature Chol, Total 150 <=239 [place] mg/dL [facility] LABORATORY Triglycerides 129 <=199 [place] mg/dL [facility] HDL 32 (L) >=40 [place] mg/dL [facility] LDL Cholesterol 92 <=190 [place] mg/dL [facility] Chol/HDL Ratio 4.7 ratio [facility] Lipid See Note [place] Interpretation [facility] Comment: Lipid management should be guided by a p atient? s ASCVD risk, goals and preferences. ACC/AHA Guidelines recommend high intens ity statin if clinical ASCVD or LDL greater than or equal to 190 mg/dL. http://[employer].FlexEnergy/NGO-ZEI-Zdezdqefn Adults aged 40-75 with LDL 70-189 mg/dL should have their 10 year ASCVD risk estimated with the ACC/AHA ASCVD risk es timator http://tools.acc.org/QMSQQ-Twjw-Wveelrac r/ Statin should be discussed if risk [...] Address City/State/ZIP Code [place] [address] POCT Glucose (07/06/2017 1:09 AM EST) athologist Signature POC Glucose 121 65 - 199 [facility] SU mg/dL [facility] LABORATORY Comment: Supplemental ranges: <140 mg/dL before meals <180 mg/dL all other times of the day Specimen Anatomical Collection Method Collection Time Receive d Time (Source) Location / / Volume Laterality Blood specimen 07/06/2017 1:09 AM 017 1:09 (specimen) EST AM EST Daphne Shahid MD POINT OF CARE TEST ORDERABLE S Performing Organization Address City/State/ZIP Code Phon e Number [address] POCT Glucose (07/06/2017 12:06 AM EST) athologist Signature POC Glucose 147 65 - 199 [facility] Comment: Supplemental ranges: <140 mg/dL before meals <180 mg/dL all other times of the day Specimen Anatomical Collection Method Collection Time Receive d Time (Source) Location / / Volume Laterality Blood specimen 07/06/2017 12:06 7 (specimen) AM EST 12:06 AM EST Daphne Shahid MD POINT OF CARE TEST ORDERABLE S Performing Organization Address City/State/[place] [address] (ABNORMAL) POCT Glucose (07/05/2017 10:56 PM EST) athologist Signature POC Glucose 200 (H) 65 - 199 [place] mg/dL [facility] Comment: Supplemental ranges: <140 mg/dL before meals <180 mg/dL all other times of the day Specimen Anatomical Collection Method Collection Time Receive d Time (Source) Location / / Volume Laterality Blood specimen 07/05/2017 10:56 7 (specimen) PM EST 10:56 PM EST Daphne Shahid MD POINT OF CARE TEST ORDERABLE S Performing Organization Address City/State/[place] [address] (ABNORMAL) POCT Glucose (07/05/2017 10:05 PM EST) P athologist Signature POC Glucose 225 (H) 65 - 199 [facility] Comment: Supplemental ranges: <140 mg/dL before meals <180 mg/dL all other times of the day Specimen Anatomical Collection Method Collection Time Receive d Time (Source) Location / / Volume Laterality Blood specimen 07/05/2017 10:05 7 (specimen) PM EST 10:05 PM EST Daphne Shahid MD POINT OF CARE TEST ORDERABLE S Performing Organization Address City/[facility]/[place] [address] (ABNORMAL) POCT Glucose (07/05/2017 9:02 PM EST) athologist Signature POC Glucose 301 (H) 65 - 199 [facility] mg/dL [facility]ORY Comment: Supplemental ranges: <140 mg/dL before meals <180 mg/dL all other times of the day Specimen Anatomical Collection Method Collection Time Receive d Time (Source) Location / / Volume Laterality Blood specimen 07/05/2017 9:02 PM 017 9:02 (specimen) EST PM EST Daphne Shahid MD POINT OF CARE TEST ORDERABLE S Performing Organization Address City/[facility]/[place] [address] XR Chest PA or [...] 474 ms MUSE SYSTEM (Bezet) Calculated P [place] 50 degrees MUSE SYSTEM Calculated R [place] -28 degrees MUSE SYSTEM Calculated T [place] 90 degrees MUSE SYSTEM INTERPRETATION Sinus tachycardia [...] (ABNORMAL) Differential, Automated (07/05/2017 8:20 PM EST) [facility] gist Method Time Signature Neutrophils % 88.4 % [facility] Neutr Abs (ANC) 9.08 (H) 1.70 - [facility] 6.10 [facility] x10(3)/[facility] L LABORATORY Lymphocytes % 7.0 % [facility] Lymphocytes Abs 0.7 (L) 0.9 - 3.2 [facility] x10(3)/[facility] LABORATORY Monocytes % 3.7 % [facility] Monocyte Abs 0.4 0.3 - 0.9 [facility] x10(3)/[facility] LABORATORY Eosinophils % 0.1 % [facility] Eosinophils Abs 0.0 0.0 - 0.4 [facility] x10(3)/[facility] LABORATORY Basophils % 0.2 % [facility] Basophils Abs 0.0 0.0 - 0.1 [facility] x10(3)/[facility] LABORATORY Immature Gran % 0.60 % [facility] [...] Abs 0.06 (H) 0.00 - 0.04 x10(3)/[facility] LABORATORY Specimen Anatomical Collection Method Collection Time Receive d Time (Source) Location / / Volume Laterality Blood specimen 07/05/2017 8:20 PM 017 8:27 (specimen) EST PM EST Resulting Agency Comment Spec In Lab Daphne Shahid MD HEMATOLOGY ORDERABLES Performing Organization Address City/State/[place] [address] (ABNORMAL) Hemogram (07/05/2017 8:20 PM EST) Analysis Performed At Patho logist Time Signature WBC 10.3 (H) 4.0 - 9.5 [facility] x10(3)/[facility] LABORATORY RBC 4.64 4.58 - [facility] 5.54 [facility] x10(6)/[facility] LABORATORY Hemoglobin 14.1 13.7 - [facility] 16.5 gm/dL [facility] LABORATORY Hematocrit 40.8 40.5 - [place] 48.5 % [facility] LABORATORY MCV 87.9 82.9 - [place] 93.1 [facility] LABORATORY MCH 30.4 27.5 - [place] OLIVASCK 32.1 pg [facility] LABORATORY MCHC 34.6 32.0 - [facility] 35.7 gm/dL [facility] LABORATORY Platelets 204 145 - 357 [facility] x10(3)/[facility] LABORATORY RDWSD 46.1 (H) 36.0 - [facility] 45.0 [facility] LABORATORY RDWCV 14.5 (H) 11.4 - [facility] 13.8 % [facility] LABORATORY MPV 9.7 7.6 - 12.9 [facility] LABORATORY nRBC % Auto 0.0 % [facility] nRBC Abs Auto 0.000 0.000 - [place] 0.000 [facility] x10(3)/[facility] LABORATORY Specimen Anatomical Collection Method Collection Time Receive d Time (Source) Location / / Volume Laterality Blood specimen 07/05/2017 8:20 PM 017 8:27 (specimen) EST PM EST Resulting Agency Comment Spec In Lab Daphne Shahid MD HEMATOLOGY ORDERABLES Performing Organization Address City/State/[place] [address] APTT (07/05/2017 8:20 PM EST) athologist Signature PTT 32 25 - 35 sec [facility] Comment: The recommended therapeutic range for fu ll dose, unfractionated heparin at [facility] is 80 ? 114 [...] Shahid MD HEMATOLOGY ORDERABLES Performing Organization Address City/[facility]/ZIP Code Phon e Number [address] (ABNORMAL) Cardiac Enzymes (LEB/CGP) (07/05/2017 8:20 PM EST) P athologist Signature Troponin-T 2.11 (H) 0.00 - [facility] 0.00 ng/mL [facility] Comment: The 99th percentile [...] additional sample may be indicated. Reference: Third [place] Definition of Myocardial Infarction. Journal of the [place] College of Cardiology 2012;60:1581-98 CK, Total 149 0 - 200 unit/L [facility] Specimen Anatomical Collection Method Collection Time Receive d Time (Source) Location / / Volume Laterality Blood specimen 07/05/2017 8:20 PM 017 8:27 (specimen) EST PM EST Resulting Agency Comment Spec In Lab Daphne Shahid MD CHEMISTRY ORDERABLES Performing Organization Address City/[facility]/[place] [address] (ABNORMAL) Magnesium (07/05/2017 8:20 PM EST) athologist Signature Magnesium 0.68 (L) 0.69 - 1.07 [facility] mmol/L [facility] LABORATORY Specimen Anatomical Collection Method Collection Time Receive d Time (Source) Location / / Volume Laterality Blood specimen 07/05/2017 8:20 PM 017 8:27 (specimen) EST PM EST Resulting Agency Comment Spec In Lab Daphne Shahid MD CHEMISTRY ORDERABLES Performing Organization Address City/State/[place] [address] (ABNORMAL) Basic Metabolic Panel (non-fasting) (07/05/2017 8:20 PM EST) athologist Signature Glucose Lvl 321 (H) 65 - 199 [facility] mg/dL [facility]ORY Comment: Diabetes: >=200 mg/dL plus symp toms BUN 20 10 - 20 mg/dL [facility] LABORATORY Creatinine 1.12 0.80 - 1.50 mg/dL [facility] LABOR[facility]ORY Sodium 139 135 - 145 mmol/L [facility] LABORATORY Potassium 3.8 3.5 - 5.0 mmol/L [facility] [...] mmol/L [facility] Anion Gap 14 5 - 15 mmol/L [facility] LABORATORY Calcium 8.1 (L) 8.5 - 10.5 mg/dL [facility] LABORATORY Estimated GFR >60 >=60 [facility] Comment: The reported eGFR should be multiplied b y 1.2 for patients. The MDRD is not an appropriate measure o f renal function for patients with body mass extremes or in patients with acute kidney failure. http://biNu/DHnkdep http://biNu/DHMCnkf Specimen Anatomical Collection Method Collection Time Receive d Time (Source) Location / / Volume Laterality Blood specimen 07/05/2017 8:20 PM 017 8:27 (specimen) EST PM EST Resulting Agency Comment Spec In Lab Daphne Shahid MD CHEMISTRY ORDERABLES Performing Organization Address City/State/[place] [address] (ABNORMAL) POCT Glucose (07/05/2017 7:32 PM EST) athologist Signature POC Glucose 296 (H) 65 - 199 [facility] mg/dL [facility] Comment: Supplemental ranges: <140 mg/dL before meals <180 mg/dL all other times of the day Specimen Anatomical Collection Method Collection Time Receive d Time (Source) Location / / Volume Laterality Blood specimen 07/05/2017 7:32 PM 017 7:32 (specimen) EST PM EST Daphne Shahid MD POINT OF CARE TEST ORDERABLE S Performing Organization Address City/State/[place] [address] CARDIAC CATHETERIZATION (07/05/2017 6:47 PM EST) Specimen (Source) Anatomical Location Collection Method / Collectio n Time Received Time / Laterality Volume Narrative CARDIOMAC SYSTEM - 07/05/2017 7:27 PM ES T ?[facility] ? Cardiac Cathete rization/Intervention Report ? Patient Name: Natalya, Gregory ? Procedure Date: 07/05/2017 ? A #: [id number] ? Primary Physician: Clarisa, Jet T ? Case #: [id number] ? File Name: [id number] ? Catheterization Order Number: [id number] ? [facility] ? Final Report [place], [place] ? Patient Name: ? Gregory Natalya ?ID#: ?[id number] ? : ?1945 ? Procedure Date: ? [...] presented with: non -STEMI (w/i 7 days). [place] ?Cardiovascular Society angina c lass was IV. 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 ? Jet Mckenna M.D. ? Electronically Signed by: Jet bunch M.D. ? Report Finalized: 07/05/2017 ??19:23 ? Report Last Ammended: 10/26/2017 ??10:29 ? Procedure Note Jet Mckenna MD - 10/26/2017Formatt ing of this note might be different from the original. [facility] Cardiac Catheterization/Intervention Re port Patient Name: Gregory Hoang Procedure Date: 07/05/2017 A #: [id number] Primary Physician: Jet Mcknena Case #: [id number] File Name: [id number] Catheterization Order Number: [id number] [facility] Final Report [place], [place] Patient Name: Gregory Hoang ID#: [id number] : 1945 Procedure Date: July 05, [...] presented with: non-STEMI ( w/i 7 days). [place] Cardi[employer] Society angina class was IV. 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 Jet Mckenna M.D. Electronically Signed by: Jet [...] Mccollum ? (Age): 1945(72y) Med Rec#: ? [id number] ?Sex: ?M ? Site Loc: ? [facility] ?Ht / Wt: ??173(cm)/86(kg) Pt. Loc: ?CCU ? BSA: ?2 Study Date: ?? 07/05/2017 ?Pt. Type: Inpatient Tape: ? Referring: Daphne Shahid ([id number]) Referring: MANDA ALCANTAR Reading: Blade Preston ([id number]) Repeater Chief: Dayami Paula BA, [facility] Diagnosis: *ICD-10-PCS Non-ST elevation (NSTEMI) m [...] E-wave Vmax ?0.8 ?m/sec ? MV deceleration ajni125 ?msec ? MV A-wave Vmax ?0.8 ?m/sec [...] ? Mid-Inferior ?Akinetic ? Mid-Inferoseptal ?Hypokinetic ? [place]-Septal ? Akinetic ? [place]-Anterior ? Hypokinetic ? [place]-Lateral ?Hypokinetic ? [place]-Inferior ? Akinetic ? [place]-Tip ?Akinetic ? This report has been electronically sign ed by: _ Blade Preston MD ? 07/06/2017 08 :53:15 Images reviewed and interpretation [facility] Procedure Note Blade Preston MD - 07/06/2017Formatt ing of this note might be different from the original. Procedure: Transthoracic Echocardiogram Patient: NATALYA MCBRIDE(Age): [birth year]72y) Med Rec#: [id number] Sex: M Site Loc: [facility] Ht / Wt: 173(cm)/86(kg) Pt. Loc: [facility] BSA: 2 Study Date: 07/05/2017 Pt. Type: Inpatie nt Tape: Referring: Daphne Shahid ([id number]) Referring: MANDA ALCANTAR Reading: Blade Preston ([id number]) Repeater Chief: Dayami Paula BA, [facility] Diagnosis: *ICD-10-PCS Non-ST elevation (NSTEMI) m yocardial infarction (I21.4) BP: 163/96 SUMMARY: 1. The left ventricle is mildly dilated. Left ventricular wall thickness is normal. There are left ventricular se gmental wall motion abnormalities present, as shown in the d iagram below. Global left ventricular systolic function is severel y reduced. The quantitative left ventricular ejection fraction by biplane Oniell's method is 29%. Doppler assessment is consistent [...] MV E-wave Vmax 0.8 m/sec MV deceleration [id number] msec MV A-wave Vmax 0.8 m/sec MV [...] Hypokinetic Mid-Posterolateral Hypokinetic Mid-Inferior Akinetic Mid-Inferoseptal Hypokinetic [place]-Septal Akinetic [place]-Anterior Hypokinetic [place]-Lateral Hypokinetic [place]-Inferior Akinetic [place]-Tip Akinetic This report has been electronically sign ed by: _ Blade Preston MD 07/06/2017 08:53:15 Images reviewed and interpretation verif ied [facility] Cardiac Ultrasound Laboratory Daphne Shahid MD ECHO ORDERABLES Performing Organization Address City/State/ZIP Code Phon e Number [facility] Differential, Automated (07/05/2017 4:55 PM EST) P athologist Signature Neutrophils % 77.0 % [facility] Neutr Abs (ANC) 5.26 1.70 - [facility] 6.10 [facility] x10(3)/[facility] LABORATORY Lymphocytes % 13.3 % [facility] Lymphocytes Abs 0.9 0.9 - 3.2 [facility] x10(3)/[facility] LABORATORY Monocytes % 8.2 % [facility] Monocyte Abs 0.6 0.3 - 0.9 [facility] x10(3)/[facility] LABORATORY Eosinophils % 0.7 % [facility] Eosinophils Abs 0.0 0.0 - 0.4 [facility] x10(3)/[facility] LABORATORY Basophils % 0.4 % [facility] Basophils Abs 0.0 0.0 - 0.1 [facility] x10(3)/[facility] LABORATORY Immature Gran % 0.40 [...] Melisa Gran Abs 0.03 0.00 - 0.04 x10(3)/[facility] MAR Y [facility] LABORATORY Specimen Anatomical Collection Method Collection Time Receive d Time (Source) Location / / Volume Laterality Blood specimen 07/05/2017 4:55 PM 017 5:24 (specimen) EST PM EST Resulting Agency Comment Spec In Lab Daphne Shahid MD HEMATOLOGY ORDERABLES Performing Organization Address City/State/[place] [address] (ABNORMAL) Hemogram (07/05/2017 4:55 PM EST) Analysis Performed At Patho logist Time Signature WBC 6.8 4.0 - 9.5 [facility] x10(3)/[facility] LABORATORY RBC 4.67 4.58 - [facility] 5.54 [facility] x10(6)/[facility] LABORATORY Hemoglobin 14.0 13.7 - [facility] 16.5 gm/dL [facility] LABORATORY Hematocrit 41.0 40.5 - [facility] 48.5 % [facility] LABORATORY MCV 87.8 82.9 - [facility] 93.1 fL [facility] LABORATORY MCH 30.0 27.5 - [facility] 32.1 pg [facility] LABORATORY MCHC 34.1 32.0 - [facility] 35.7 gm/dL [facility] LABORATORY Platelets 197 145 - 357 [facility] x10(3)/[facility] LABORATORY RDWSD 46.4 (H) 36.0 - [facility] 45.0 [facility] LABORATORY RDWCV 14.5 (H) 11.4 - [facility] 13.8 % [facility] LABORATORY MPV 9.7 7.6 - 12.9 [facility] LABORATORY nRBC % Auto 0.0 % [facility] nRBC Abs Auto 0.000 0.000 - [facility] 0.000 [facility] x10(3)/[facility] LABORATORY Specimen Anatomical Collection Method Collection Time Receive d Time (Source) Location / / Volume Laterality Blood specimen 07/05/2017 4:55 PM 017 5:24 (specimen) EST PM EST Resulting Agency Comment Spec In Lab Daphne Shahid MD HEMATOLOGY ORDERABLES Performing Organization Address City/State/[place] [address] (ABNORMAL) Cardiac Enzymes (LEB/CGP) (07/05/2017 4:55 PM EST) P athologist Signature Troponin-T 1.69 (H) [facility].00 [facility] ng[facility]mL [facility] Comment: The 99th percentile [...] additional sample may be indicated. Reference: Third [place] Definition of Myocardial Infarction. Journal of the [place] [employer] 2012;60:1581-98 CK, Total 191 0 - 200 unit/L [facility] Specimen Anatomical Collection Method Collection Time Receive d Time (Source) Location / / Volume Laterality Blood specimen 07/05/2017 4:55 PM 017 5:56 (specimen) EST PM EST Resulting Agency Comment Spec In Lab Daphne Shahid MD CHEMISTRY ORDERABLES Performing Organization Address City/[facility]/ZIP Code Phon e Number [address] (ABNORMAL) pro-Brain Natriuretic Peptide (07/05/2017 4:55 PM EST) athologist Signature ProBNP 1,598 (H) <=125 [facility] pg/mL [facility] LABORATORY Specimen Anatomical Collection Method Collection Time Receive d Time (Source) Location / / Volume Laterality Blood specimen 07/05/2017 4:55 PM 017 5:24 (specimen) EST PM EST Resulting Agency Comment Spec In Lab Daphne Shahid MD CHEMISTRY ORDERABLES Performing Organization Address City/[facility]/[place] [address] Magnesium (07/05/2017 4:55 PM EST) athologist Signature Magnesium 0.78 0.69 - 1.07 [facility] mmol/L [facility] LABORATORY Specimen Anatomical Collection Method Collection Time Receive d Time (Source) Location / / Volume Laterality Blood specimen 07/05/2017 4:55 PM 017 5:24 (specimen) EST PM EST Resulting Agency Comment Spec In Lab Daphne Shahid MD CHEMISTRY ORDERABLES Performing Organization Address City/[facility]/ZIP [facility] [place] [address] (ABNORMAL) Basic Metabolic Panel (non-fasting) (07/05/2017 4:55 PM EST) P athologist Signature Glucose Lvl 230 (H) 65 - 199 [facility] mg/dL [facility] Comment: Diabetes: >=200 mg/dL plus symp toms BUN 19 10 - 20 mg/dL [facility] Creatinine 1.04 0.80 - 1.50 mg/dL [facility] Sodium 142 135 - 145 mmol/L [facility] Potassium 4.0 3.5 - 5.0 mmol/L [facility] [...] mmol/L [facility] Anion Gap 14 5 - [...] or in patients with acute kidney failure. http://biNu/DHnkdep http://biNu/DHnkf Specimen Anatomical Collection Method Collection Time Receive d Time (Source) Location / / Volume Laterality Blood specimen 07/05/2017 4:55 PM 017 5:24 (specimen) EST PM EST Resulting Agency Comment Spec In Lab Daphne Shahid MD CHEMISTRY ORDERABLES Performing Organization Address City/State/[place] [address] (ABNORMAL) APTT (07/05/2017 4:55 PM EST) athologist Signature PTT 41 (H) 25 - 35 sec [facility] Comment: The recommended therapeutic range for fu ll dose, unfractionated heparin at [facility] is 80 ? 114 [...] Shahid MD HEMATOLOGY ORDERABLES Performing Organization Address City/[facility]/[place] [address] (ABNORMAL) POCT Glucose (07/05/2017 4:53 PM EST) athologist Signature POC Glucose 208 (H) 65 - 199 [facility] mg/dL [facility] Comment: Supplemental ranges: <140 mg/dL before meals <180 mg/dL all other times of the day Specimen Anatomical Collection Method Collection Time Receive d Time (Source) Location / / Volume Laterality Blood specimen 07/05/2017 4:53 PM 017 4:53 (specimen) EST PM EST Daphne Shahid MD POINT OF CARE TEST ORDERABLE S Performing Organization Address City/[facility]/ZIP [facility] [place] [address] EKG 12 Lead (07/05/2017 4:32 PM EST) Component Value Ref Range Test Analysis Performed Pathologis t Method Time At Signature Ventricular rate 97 BPM MUSE SYSTEM Atrial Rate 97 BPM MUSE SYSTEM P-R Interval 148 ms MUSE SYSTEM QRS Duration 96 ms MUSE SYSTEM Q-T Interval 364 ms MUSE SYSTEM QTC Calculated 462 ms MUSE SYSTEM (Bezet) Calculated P [place] 48 degrees MUSE SYSTEM Calculated R [place] -33 degrees MUSE SYSTEM Calculated T [place] 98 degrees MUSE SYSTEM INTERPRETATION Normal sinus [...] Coronary atherosclerosis of unspecified type of vessel, [place] or graft Cardiomyopathy, ischemic Other specified forms [...] post-op day 1 in the AM Give CT if unable to take PO, Routine Given [...] dose on Wed07/07/17 at 2100, Until Discontinued, Finger teeth, Routine Given 07/08/2017 10:06 PM EST [...] or norepinephrine is ineffective. Call pager # [phone] if initiated. Rate/Dose Change 07/08/2017 7:01 PM [...] Starting on [place] 07/08/17 at 0427, Until [place] 07/11/17 at 0909, Per Protocol, BOLUS order. [...] if phenyleprine and/or vasopressin ineffective.Call pager # [phone] if initiated., Routine Rate/Dose Change 07/09/2017 1:24 [...] 2.0 L/min/M2. Maximum volume 2 L. Call yard warehouse worker for additional fluid orders: pager #[phone]. Rate/Dose Verify 07/08/2017 4:00 AM EST 100 [...] post-op day 1 in the AM Give CT if unable to take PO, Routine atorvastatin [...] Myrna triplett RN)1200 (Not Given - Provider: Mynra Young RN - Reason: Patient/family refused) 0-10 [...] parameters not met)1215 (Given - Provider: Myrna oYung RN) nit BG 161 - 180 Give [...] Discontinued, Routine 2200 (Given - Provider: Ale aRngel RN) 0 (No t Given - Provider: [...] post-op day 1 in the AM Give CT if unable to take PO
Routine Group [...]
Routine documented in this encounter Care Teams Bushing And Broach Operator Relationship Specialty Start Date End Date Lovely Vicente MD PCP - General 04/16/[address] [place] [address] [address] [place] [address] documented as of this encounter
--- OUTSIDE RECORDS SUMMARY | 2022-02-20 08:16 | XMS_ITS | Encounter Summary ---
:1945 Author Organization [facility] [place] [address] Care Team Providers Name Role Phone Lovely Vicente MD Primary Care Provider Encounter Details Date Type Department Care Team Description 07/08/2017 Orders Only Cardiology [facility] [place] [address] Social History Tobacco Use Types Packs/Day [...] Nobles MD [facility] [place], [place] 0[address] (Wo rk) documented as of [...] Mccollum ? (Age): 1945(72y) Med Rec#: ? [id number] ?Sex: ?M ? Site Loc: ? Ht / Wt: ??(cm)/ (kg) ? Pt. Loc: ? Study Date: ?? 07/07/2017 ?Pt. Type: Tape: ? Referring: Yuan Retana Reading: Yifan Perez MD ([id number]) Performing: Yifan Perez MD ([id number]) Diagnosis: SUMMARY: 1. [facility] [...] ? Mid-Inferior ?Hypokinetic ? Mid-Inferoseptal ?Hypokinetic ? [place]-Septal ? Hypokinetic ? [place]-Anterior ? Hypokinetic ? [place]-Lateral ?Hypokinetic ? [place]-Inferior ? Hypokinetic ? [place]-Tip ?Not Seen ? This report has been electronically sign ed by: _ Yifan Perez MD ? 07/08/2017 12 :25:18 Images reviewed and interpretation ver ied [facility] Cardiac Ultrasound Laboratory Procedure Note Yifan Perez MD - 07/08/2017Formatt ing of this note might be different from the original. Procedure: Transesophageal Echocardiogra m Patient: NATALYA MCBRIDE(Age): [birth year]72y) Med Rec#: [id number] Sex: M Site Loc: Ht / Wt: (cm)/ (kg) Pt. Loc: Study Date: 07/07/2017 Pt. Type: Tape: Referring: Yuan Retana Reading: Yifan Perez MD ([id number]) Performing: Yifan Perez MD ([id number]) Diagnosis: SUMMARY: 1. Intraoperative AVELINO performed at [...] Hypokinetic Mid-Posterolateral Hypokinetic Mid-Inferior Hypokinetic Mid-Inferoseptal Hypokinetic [place]-Septal Hypokinetic [place]-Anterior Hypokinetic [place]-Lateral Hypokinetic [place]-Inferior Hypokinetic [place]-Tip Not Seen This report has been electronically sign ed by: _ Yifan Perez MD 07/08/2017 12:25:18 Images reviewed and interpretation verif ied [facility] Cardiac Ultrasound Laboratory Unknown ECHO ORDERABLES Performing Organization Address City/State/ZIP Code Phon e Number [facility] documented in this encounter Visit Diagnoses Not on filedocumented in this encounter Care Teams Analytical Manager Relationship Specialty Start Date End Date Lovely Vicente MD PCP - General 04/16/[address] [place] [address] documented as of this encounter
--- OUTSIDE RECORDS SUMMARY | 2022-02-20 08:17 | XMS_ITS | Encounter Summary ---
:1945 Author Organization [facility] Address [facility] [place] [address] Care Team Providers Name Role Phone Lovely Vicente MD Primary Care Provider Reason for Visit Auth/Cert Specialty Diagnoses / Procedures Referred By Contact Refer red To Contact Diagnoses STEMI (ST elevation myocardial infarction) NSTEMI STEMI Procedures CARDIAC CATHETERIZATION NAYE IPI Referral ID Status Reason Start Date Expiration Date Visits Requ ested Visits Authorized [id number] 1 1 Encounter Details Date Type Department Care Team Description 07/07/2017 Surgery Main Operating Room Yuan Webber, @ CABG, USING ARTERIAL Barbara Ocampo MD GRAFT;SINGLE ARTERIAL Hospital [facility] GRAFT (WRVU 33.75) [facility] [place] [address] SURGERY [phone] [place], [place] 0[address] (Wo rk) Social History Tobacco [...] in this encounter Discharge Summaries Martha Teague, DEHYDRATOR TENDER - 07/14/2017 9:38 AM EST Inpatient - Discharge Summary Patient Name: Gregory Hoang Patient Age: 72 y.o. Birthdate: 1945 Language: Ivorian Race: White Ethnicity: Not nor Admit Date: [...] , @ 1:20p Patient to follow-up with Business Attorney/heart failure team in one week. An appointment will be made for you. You may call [phone] Patient to follow-up with Cardiac Surgery, Dr. Yuan Webber, in ~ 4 weeks with CXR, EKG. Inpatient Provider Contact Information: [facility] Section of Cardiac Surgery [facility] [address] FAX [phone] Discharge Diagnoses (Hospital Problems) Primary Diagnoses: CAD [...] 33.75) performed by Yuan Webber MD at [facility] OR ??? PRO CABG, ARTERY-VEIN, TWO N/A 07/07/2017 @CABG, TWO VENOUS GRAFTS & ARTERIAL GRAFT (WRVU 7.93) performed by Yuan Webber MD at [facility] OR ??? PRO COLONOSCOPY, REMV LESN, SNARE 01/16/2014 COLONOSCOPY, POLYPECTOMY, REMOVAL LESION BY SNARE performed by Nohemi Jaimes MD at [facility] ENDOSCOPY ??? PRO ENDOSCOPY W/VIDEO-ASST VEIN HARVEST, CABG Right 07/07/2017 ENDOSCOPIC HARVEST VEIN(S) FOR CABG (WRVU 0.31) performed by Yuan Webber MD at [facility] OR ??? PRO THYROIDECTOMY 03/28/2013 THYROIDECTOMY, TOTAL OR COMPLETE performed by Manny Mcknight MD at [facility] OR Prior To Admission Medications Prescriptions Prior to Admission Medication Sig Dispense Refill Last Dose ??? levothyroxine (SYNTHROID) 175 mcg Tablet Take 1 tablet by mouth daily. 90 tablet 3 07/05/2017 [id number] ??? ascorbic acid, vitamin C, (VITAMIN C) [...] hospital and ruled infor non-ST segment elevation AL. This almost certainly represents the residual of [...] Hospital Course: Gregory Hoang was admitted to [facility] on 07/05/2017 via the Cardiology Service. During his hospital course, he was taken emergently to the seed laboratory assistant for an ongoing STEMI. An IABP was [...] not take or discontinue any prescription or xlei-eoh-caaetbw medications without asking your doctor or pharmacist [...] day to have your insulin doses adjusted. [facility] Discharge Instructions: Call your doctor if: You have a fever of greater than 101 degrees, shaking chills, if you develop redness or drainage from your incision sites, or if you have questions. Please call your surgeon's office if you have any discharge or drainage from your chest incision. Your surgeon, Dr. Yuan Webber and/or the Cardiac Surgery Physician Syrup Machine Laborer Team may be reached at . Weight: [...] Dr. Yuan Webber. You may use a Kicking Horse Track or treadmill but avoid any pulling [...] friends, go to a movie, go to caodaism, etc. Heavy activities: No hunting, skiing, jogging, snow shoveling, snowmobiling, lawn mowing, swimming, golf or tennis until after your return appointment with the surgeon. Do not ride motorcycles, [employer]'s tractors or horses. Avoid the use of [...] , @ 1:20p Patient to follow-up with Business Attorney/heart failure team in one week. Appointment will be made for you. You may call [phone] Patient to follow-up with Cardiac Surgery, Dr. Yuan Webber, in ~ 4 weeks with CXR, EKG. Cardiac Rehabilitation: Gregory Hoang was seen today regarding participation in the outpatient Phase 2 Cardiac Rehabilitation at [facility]. The patient agrees to a referral to this program. The referral will be sent at discharge and the patient should be contacted by the Program within 1- 2 weeks from discharge. ?? Future Appointments and Orders Future Appointments Provider Department Dept Phone 09/07/2017 3:00 PM LAB, THREE L Lab 3L [facility] [phone] 09/07/2017 4:00 PM Luz Prescott MD Endocrinology at [facility] [phone] Future Orders Complete By Expires EKG 12 Lead [EKG1 Custom] 08/14/2017 02/13/2018 Process Instructions: Scheduling Instructions: Questions: Which DH location will this be performed?: [facility] Is a rhythm strip needed?: No If EKG Reason is Pre-op Evaluation, indicate diagnosis for surgery.: XR Chest PA & Lateral (Generic) [[id number] Custom] 08/14/2017 02/13/2018 Process Instructions: Scheduling Instructions: Questions: Where will study be performed?: [facility] Portable exam?: Reason for exam and clinical history: CABG x 3 Other pertinent information: Stat read required?: Date of injury if applicable: Requested Time: Referral to Cardiac Rehab [MIQ362 Custom] As directed Process Instructions: If no progress note charted, please enter Clinical details in comments. Scheduling Instructions: Questions: My question or request is: s/p CABG. Cardiac rehab at [facility] Referral to Home Health - at DISCHARGE [NBW7379 CPT(R)] As directed Process Instructions: Scheduling Instructions: Comments: DOCUMENTATION FOR VNA SERVICES (INCLUDING THOSE PATIENTS WITH MEDICARE COVERAGE REQUIRING HOME VNA SERVICES AND/OR HOSPICE SERVICES) PATIENT'S LOCATION: Gregory Hoang [address] [place] [address] [place] [id number] (home) Telephone Information: Mutton Puncher's Name: self In discussion with the attending physician, it is certified that this patient is under their care and that they, or a Nurse Practitioner, or Physician Syrup Machine Laborer who is working directly with them, had [...] HEALTH AGENCY: [facility] ([facility] [place] [facility] in [place] PHONE: [phone] FAX: [phone] RN orders: Cardiopulmonary assessment, incisional assessment, assess vital signs, assessment of rehab progress, medication management and effectiveness, home safety evaluation. Please draw INR if indicated and send result to:Dr Vicente [phone] PT ORDERS: Continue rehab for endurance, gait stability and strength with mobility and transfers. Home safety evaluation. Home exercise program if appropriate. Start of Care Date:24-48 hours after discharge SPECIAL INSTRUCTIONS: For any follow up questions, needs, or issues please call the Cardiac Surgery Office at [phone] FOR MEDICARE ONLY: (please delete this section [...] noted. Questions: Agency name and contact information: [facility] Patient location post discharge: home What services are requested: Registered Nurse Physical Therapy Start date: Responsible MD post discharge contact info: PCP Arrangements for VNA/home care: As above. VN RN OR PCP TO PLEASE REMOVE CHEST TUBE SUTURES ON OR AFTER 07/17/2017 Signed: Martha Teague APRN [facility] Section of Cardiac Surgery [facility] [address] FAX [phone] Date: 07/14/2017 CC: MD Ivania Cr Betsy, PA [address] [place] [phone] documented in this encounter Discharge Instructions Discharge [...] day to have your insulin doses adjusted. [facility] Patient InstructionsStMartha mcdonald APRN [...] not take or discontinue any prescription or gcmt-vbp-cyrfkfm medications without asking your doctor or pharmacist [...] day to have your insulin doses adjusted. [facility] ? Discharge Instructions: ?? Call your doctor if: You have a fever of greater than 101 degrees, shaking chills, if you develop redness or drainage from your incision sites, or if you have questions. Please call your surgeon's office if you have any discharge or drainage from your chest incision. Your surgeon, Dr. Yuan Webber and/or the Cardiac Surgery Physician Syrup Machine Laborer Team may be reached at . ?? [...] Dr. Yuan Webber. You may use a Kicking Horse Track or treadmill but avoid any pulling [...] friends, go to a movie, go to caodaism, etc. ?? Heavy activities: No hunting, skiing, jogging, snow shoveling, snowmobiling, lawn mowing, swimming, golf or tennis until after your return appointment with the surgeon. Do not ride motorcycles, [employer]'s tractors or horses. Avoid the use of [...] @ 1:20p ?? Patient to follow-up with Business Attorney/heart failure team in one week. An appointment has been made for you, you can call [phone] ?? Patient to follow-up with Cardiac Surgery, Dr. Yuan Webber, in ~ 4 weeks with CXR, EKG. ? Cardiac Rehabilitation: Gregory Hoang??was seen today regarding participation in the outpatient Phase 2 Cardiac Rehabilitation at [facility]. ?? The patient agrees to a referral to this program.? The referral will be sent at discharge and the patient should be contacted by the Program within 1- 2 weeks from discharge. ? Future Appointments and Orders Future Appointments Provider Department Dept Phone ?? 09/07/2017 3:00 PM LAB, THREE L Lab 3L [facility] [phone] ?? 09/07/2017 4:00 PM Luz Prescott MD Endocrinology at [facility] [phone] Future Orders Complete By Expires ?? EKG 12 Lead [EKG1 Custom] 08/14/2017 02/13/2018 ?? Process Instructions: ? Scheduling Instructions: ? Questions: ? Which location will this be performed?: [facility] ?? Is a rhythm strip needed?: No ?? If EKG Reason is Pre-op Evaluation, indicate diagnosis for surgery.: ?? XR Chest PA & Lateral (Generic) [[id number] Custom] 08/14/2017 02/13/2018 ?? Process Instructions: ? Scheduling Instructions: ? Questions: ? Where will study be performed?: [facility] ?? Portable exam?: ?? Reason for exam and clinical history: CABG x 3 ?? Other pertinent information: ?? Stat read required?: ?? Date of injury if applicable: ?? Requested Time: ?? Referral to Cardiac Rehab [QUH690 Custom] As directed ? Process Instructions: ?? If no progress note charted, please enter Clinical details in comments. ?? Scheduling Instructions: ? Questions: ? My question or request is: s/p CABG. Cardiac rehab at [facility] ? Arrangements for VNA/home care: As above. [...] - 07/14/2017 2:34 PM EST The patient/sales service representative has been provided a list of Home Health Agencies/DME vendors which serve their preferred geographic area. A letter describing our affiliations was reviewed with them and theywere educated about their right to choose where referrals are placed. Patient requests referral to [facility] [employer]. PHONE: [phone] FAX: [phone] Expected date of discharge: 07/14 Referral routed to the Hris Administrator for matching with agency/vendor and to provide [...] day to have your insulin doses adjusted. [facility] Kathie Carrera APRN [facility] Diabetes Management Pager [phone] minutes of this 35 minute visit was spent with the patient in counseling on diabetes and treatment plan, reviewing all glucose and insulin data as well as relevant laboratory results with the patient, and coordination of care on the inpatient unit including nursing and primary team. Zulma Power RN - 07/14/2017 10:30 AM EST The patient/sales service representative has been provided a list of Home Health Agencies/DME vendors which serve their preferred geographic area. A letter describing our affiliations was reviewed with them and theywere educated about their right to choose where referrals are placed. Patient requests referral to : [facility] ([facility] [place] [facility]-is in [place]) PHONE: [phone] FAX: [phone]. Expected date of discharge: 07/14/17 Referral routed to the Hris Administrator for matching with agency/vendor and to provide [...] hours. If BG remains greater than 240, qemhpx44 units (no more than three times) &??call [...] #6 s/p CABG X3. [facility] [address] at [place], reports no symptoms but did drink some [...] Will continue to follow Katerin Azul APRN [facility] Diabetes Management Pager [phone] minutes of this 25 minute visit [...] of infiltration/extravasation Discussed plan of care with FINANCIAL QUANTITATIVE ANALYST and RN. Elevate exrtemity and apply intermittent Warm compresses. Name of MD contacted Dr. Shaw Brown 07/13/2017 @ 0690 Name of RN contacted Ale Rangel RN Name of Pharmacist if consulted NA Name of Plastics MD ( if consulted) NA (Mandatory photo for infiltrations/ extravasations scoring a stage 2 or greater, but recommended forstage 1)( include measuring tape and identifier in the photo) CHIN STRAP SEWER CARING FOR THIS PATIENT WILL CONTINUE TO [...] measuring tape and identifier in the photo) CHIN STRAP SEWER CARING FOR THIS PATIENT WILL CONTINUE TO [...] regard to both infiltrates addressed by this medical technical writer.All of MrMadiha Hoang's responses were entirely appropriate. Images of infiltrates attached here. L Martha Teague, DEHYDRATOR TENDER - 07/13/2017 8:01 AM EST Cardiac Surgery Progress Note: ID: [id number] 72 year old male POD#6 s/p CABGx3 [...] ?? I have met with the patient/sales service representative to discuss discharge planning needs. I have provided the [facility], Office of Care Management letter from the Poker Supervisor pertaining to rehab referrals. I have also provided a letter describing our affiliations within the [facility] System and educated them about their right to choose where referrals are placed. ?? I reviewed the different levels of rehab including SNF, swing, acute and LTAC with the patient/sales service representative. ?? The patient/sales service representative has been provided a list of facilities within their preferred geographic area. ?? I have requested that the patient/sales service representative provide at least three choices for referral. ?? The patient/sales service representative have requested referrals to: ?? [facility]. [facility] ?? 2. [facility] ?? 3. More to be entered ?? Expected date of discharge: 07/14 Note routed to Hris Administrator who will communicate referrals to facilities and [...] hours. If BG remains greater than 240, rxoszc30 units (no more than three times) & [...] hours. If BG remains greater than 240, tijnoi45 units (no more than three times) & call for new basal insulin orders. ??If less than 240 after two hours, give no insulin and resume prior schedule. Will continue to follow Katerin Azul APRN [facility] Diabetes Management Pager [phone] minutes of this 35 minute visit was spent with the patient in counseling on diabetes and treatment plan, reviewing all glucose and insulin data as well as relevant laboratory results with the patient, and coordination of care on the inpatient unit including nursing and primary team. Makayla Stevenson APRN - 07/12/2017 9:52 AM EST Cardiac Surgery Progress Note: ID: [id number] 72 year old male POD#5 s/p CABGx3 [...] PM EST Patient arrived from [facility]. VSS. MSI dressing pulled off with [...] hours. If BG remains greater than 240, kmeloo63 units (no more than three times) & [...] AM EST Cardiac Surgery Progress Note: ID: [id number] 72 year old male POD#4 s/p CABGx3 [...] hours. If BG remains greater than 240, ihpvav42 units (no more than three times) & [...] AM EST Cardiac Surgery Progress Note: ID: [id number] 72 year old male POD#3 s/p CABGx3 [...] Gas) No results found for: PHART, PO2ART, ACY0CYB Assessment/Plan: 72 year old male POD#3 s/p [...] Mami Thao - 07/09/2017 6:29 PM EST Clinical Informatics Manager Encounter Note Patient Name: Gregory Hoang : [id number] MR#: [id number] Admit Date: 07/05/2017 4:20 PM Hospital Day 4 days Narrative: Patient was sitting in chair, hugging heart pillow, opened his eyes, nodding to come into room Assessment: Patient was sleepy. Intervention and Outcome: Introduced institutional cook services and patient reached his hand out in appreciation. Follow-up: Clinical Informatics Manager remains available for support. Time in Direct [...] the unit. NICK SEGAL MD 07/09/2017 Yane Vneces, RN - 07/09/2017 10:45 AM EST Report given to field staff manager to cover care Maddison Cee PA - 07/09/2017 9:00 AM EST Cardiac Surgery Progress Note: ID: [id number] 72 year old male POD#2 s/p CABGx3 [...] completed shifts: In: 7977.4 [I.V.:7477.4; Other:500] Out: 0845 [Urine:3000; Other:615] I- 4 L O- 2.7 [...] Attending Surgeon on rounds. Signed: STEPHANIE Iqbal [facility] Section of Cardiac Surgery Date: [...] when IABP d/c'ed. Gretchen Carolina, PT Pager [phone] Maddison Cee PA - 07/08/2017 11:27 AM EST Cardiac Surgery Progress Note: ID: [id number] 72 year old male POD#1 s/p CABGx3 [...] Attending Surgeon on rounds. Signed: STEPHANIE Iqbal [facility] Section of Cardiac Surgery Date: [...] in place in R femoral. No hematoma. TIN POURER- Intact Psych- Anxious Skin- Dry, no peripheral [...] Ramírez MD, PGY-1 Cardiology S1 (pgr. [id number]) aDphne Shahid MD - 07/06/2017 10:18 PM EST [...] intact. IABP in place in R femoral. TIN POURER- Intact Psych- Anxious Skin- Dry, no peripheral [...] pending CABG - hold metformin - f/u [facility] ?? #Home Meds - continue levothyroxine [...] note for details. DAPHNE SHAHID MD Pager [phone] Jet Mckenna MD - 07/05/2017 6:48 PM EST Preliminary Cardiac Catheterization Procedure Note: Procedure(s) performed: Left heart cath, IABP insertion Access: Right TRANSPORT COMPANY MANAGER-->8fr IABP A time-out was conducted prior [...] effect. Heparin gtt maintained. Pt transferred to seed laboratory assistant. documented in this encounter H&P Notes Daphne Shahid MD - 07/05/2017 6:08 PM EST CARDIOLOGY HISTORY & PHYSICAL EXAM Date of Admission: 07/05/2017 ( Hospital Day 0 days ) Responsible Attending: Daphne Shahid MD PCP: Lovely Vicente MD PCP#: [phone] Patient Active Problem List Diagnosis Code ??? [...] heparin drip and transferred to [facility]. While there, continued sob, question of chest pain. Stat TTE showing WMA diffusely and EF around 20%. No significant valvular disease. Taken to the seed laboratory assistant urgently for ongoing STEMI. [facility] Labs: INR 1.0 WBC 5.88 Hgb 12.9 [...] monitor I/O - s/p lasix in the seed laboratory assistant, redose to aim net neg 1L by [...] Medicine, PGY-2 Cardiology S1, Team Pager # [phone] CARDIOLOGY ATTENDING NOTE Patient: Gregory Hoang Date [...] amenable for PCI. DAPHNE SHAHID MD Pager [phone] documented in this encounter Miscellaneous Notes Consult Note - Daphne Shahid MD - 07/14/2017 11:46 AM EST Heart Failure Service Inpatient Consult Note Gregory Hoang Date of : 1945 Age: 72 y.o. Today's date: 07/14/17 PCP: Lovely Vicente MD TECHNICAL WRITER AND EDITOR: None Place of Service: C451-A Reason for [...] 33.75) performed by Yuan Webber MD at [facility] OR ??? PRO CABG, ARTERY-VEIN, TWO N/A 07/07/2017 @CABG, TWO VENOUS GRAFTS & ARTERIAL GRAFT (WRVU 7.93) performed by Yuan Webber MD at [facility] OR ??? PRO COLONOSCOPY, REMV LESN, SNARE 01/16/2014 COLONOSCOPY, POLYPECTOMY, REMOVAL LESION BY SNARE performed by Nohemi Jaimes MD at [facility]COPY ??? PRO ENDOSCOPY W/VIDEO-ASST VEIN HARVEST, CABG Right 07/07/2017 ENDOSCOPIC HARVEST VEIN(S) FOR CABG (WRVU 0.31) performed by Yuan Webber MD at [facility] OR ??? PRO THYROIDECTOMY 03/28/2013 THYROIDECTOMY, TOTAL OR COMPLETE performed by Manny Mcknight MD at [facility] OR Outpt Meds: Current Outpatient [...] following studies: EKG 07/14/17: NSR 75 bpm, VP COMMUNICATIONS anterior infarct, LAD CXR 07/11/17: FINDINGS: Sternotomy wires. The patient has been extubated, left chest tube removed, and [place]-Suzi catheter removed since the 07/07/2017 study. Atelectasis [...] discussed with Zehra. Jaden Kelley MD Account Officer Pager [phone] CARDIOLOGY ATTENDING NOTE Patient: Gregory Hoang Date [...] heart failure clinic. DAPHNE SHAHID MD Pager [phone] Plan of Care - Alden Chavarria, ALBERENE STONE SETTER - 07/14/2017 11:35 AM EST Problem: Patient [...] Disposition: home with assist Alden Jorge Genikevin, ALBERENE STONE SETTER Pager: [phone] Inpatient Physical Therapy Problem: Acute Rehab Services [...] sit/sit to supine -- Bed Mobility Goal, Gregory Level supervision required -- Bed Mobility Goal, [...] - 3 days -- Gait Training Goal, Gregory Level supervision required -- Gait Training Goal, [...] days -- Transfer Training Goal, Activity Type zun-yr-tftqa/nwrrt-qq-otg;oji-tr-ccbuq/qhhyi-sy-dag;toilet -- Transfer Train Goal, Gregory Level supervision required -- Transfer Training Goal, [...] keeping present for 2 days per family. Petal Cutter noted of frustrations, house keeping sent to room. Patient offered showered twice, refused. at bedside, frustrated that shower not complete, informed that patient had refused several times. requesting to see FINANCE INTERN, paged sent to Martha, will come to bedside (middle of consult). not willing to wait, Martha notified that family had gone home. Encouraged to come for morning rounds a t 8am. Diabetes team at bedside - insulin adjustments made. Call cabello in reach. Continue to monitor. PLAN MOVING FORWARD: Ambulate, dressing changes BID, Please change drsg at 4am per Martha FINANCE INTERN request. INDIVIDUALIZED FALL PREVENTION INTERVENTIONS: Patient-specific fall [...] levels on the lower side, 60ml of [place] juice given after a FS of 80. [...] Conf 07/13/17 0502 Interdisciplinary Rounds/Family Conf Participants pillowcase turner;dietitian/nutrition services;nursing;occupational therapy;patient;pharmacy;physical therapy;physician Plan of Care - [...] Anticipated Discharge Disposition: home with assist Pager: [phone] CLARISSA SEGAL, PT 07/12/2017 Physical Therapy Rehabilitation [...] to sit/sit to supine Bed Mobility Goal, Gregory Level supervision required Bed Mobility Goal, Additional Goal adheres to psternal precautions for transfer Goal: Gait Training Goal Stand Alone Therapy Goal Outcome: Ongoing (Interventions Implemented as Appropriate) 07/12/17 1225 Gait Training Goal Gait Training Goal, Date Established 07/12/17 Gait Training Goal, Time to Achieve 2 - 3 days Gait Training Goal, Gregory Level supervision required Gait Training Goal, Assist [...] 3 days Transfer Training Goal, Activity Type lja-il-tikol/jzzgx-vj-xbi;ung-pr-thbjk/vsype-ao-ncp;toilet Transfer Train Goal, Gregory Level supervision required Transfer Training Goal, Additional Goal adheres to sternal precautions during transfer Consult Note - Octavia Vaughn RN - 07/12/2017 10:50 AM EST [facility] Gregory Hoang was seen today regarding participation in the outpatient Phase 2 Cardiac Rehabilitation at [facility]. The patient agrees to a referral to [...] IV site, amio to other piv and BELLING MACHINE OPERATOR at bedside to help assess, IV removed. [...] staff, he stood and marched in place. [place] weak, wanting to sit back down. Remained [...] Health/Prescription Coverage: Primary Insurance: MEDICARE Secondary Insurance: Verafin ID Prescription Coverage: yes Preferred Pharmacy: [email or web address] ID Other: none Primary Care Provider: Lovely Vicente MD [phone] Patient/Caregiver Goals of Treatment:live and get my breath back Potential Needs for Transition of Care: Rehab/SNF: [facility] Home Health: NA DME: TBD Dialysis: na Community Resources: available Transportation: yes Other: none Anticipated Barriers to Discharge/Special Considerations: none Plan: Likely SNF Rehab before home A member of the Care Management team will continue to monitor progress, follow for continuity of care and assist with transition of care planning. ERLIN Weiss Pager: [phone] Consult Note - Katerin Azul RN - [...] management and to provide a review of tank terminal gauger diabetes care. Diabetes History: Gregory Hoang has [...] patient W/E coverage, Dr. Jeane Tatum, pager [phone] Katerin Azul APRN Endocrinology Diabetes Management Pager [phone] Plan of Care - Walt Stephanie Wyatt [...] Webber MD - 07/07/2017 6:27 PM EST [place] Operative Note Patient Name: Gregory Hoang : [id number] MR#: [id number] Case Date: 07/07/2017 Surgeon: Surgeon(s) and Role: * Yuan Webber MD - Primary * Michael Drake PA - Physician Syrup Machine Laborer * Linda Flores PA - Physician Syrup Machine Laborer Preoperative diagnosis: 3VD Postoperative diagnosis: CAD, severe [...] Operative Note Patient Name: Gregory Hoang : [id number] MR#: [id number] Case Date: 07/07/2017 Surgeon: Surgeon(s) and Role: * Yuan Webber MD - Primary * Michael Drake PA - Physician Syrup Machine Laborer * Linda Flores PA - Physician Syrup Machine Laborer Preoperative diagnosis: 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 Mr. Hoang is a 72 y.o. year old male who presented with a several week history of increasingly severe exertional dyspnea and orthopnea. He was ultimately evaluated at an outside hospital and ruled infor non-ST segment elevation AL. This almost certainly represents the residual of [...] with other involved physicians Yuan Webber MD [phone] Med Student Progress Note - Katty Hahn [...] major CV events such as , stroke, AL, repeat revascularization compared to PCI). In this [...] or BiPAP - s/p lasix in the seed laboratory assistant, was net -1.5L - s/p plavix load, [...] FULL - Dispo: CVCC Katty Hahn, M3 [facility] Cardiology S1 (Pager [phone]) Plan of Care - Stephanie Godoy RN - 07/06/2017 5:00 AM EST Problem: Patient Care Overview Goal: Plan of Care Review 07/06/17 [id number] Coping/Psychosocial Plan Of Care Reviewed With patient;family [...] in urinal without difficulty. Lasix given in seed laboratory assistant, 1.4 L out at this time. Pt [...] [facility] C[facility]OLOGY [place], [place] [address] (Wo rk) Scheduled Orders Name Type [...] procedure are i n the results section. COOLER SERVICE SUPERVISOR SCAN 07/15/2017 12:00 Res ults for this [...] Routine 07/08/2017 4:00 Results f or this ([place]/[facility]) AM EST procedure are i n the [...] Timed 07/06/2017 2:10 Results f or this ([place]/[facility]) PM EST procedure are i n the [...] section. TYPE AND SCREEN Routine 07/06/2017 12:00 ([place]/[facility]/SHANDA) PM EST APTT STAT 07/06/2017 11:24 Results [...] Routine 07/06/2017 8:10 Results f or this ([place]/[facility]) AM EST procedure are i n the [...] Routine 07/06/2017 2:20 Results f or this ([place]/[facility]) AM EST procedure are i n the [...] Routine 07/05/2017 8:20 Results f or this ([place]/[facility]) PM EST procedure are i n the [...] Timed 07/05/2017 4:55 Results f or this ([place]/[facility]) PM EST procedure are i n the [...] EXAMINATION: XR CHEST PA AND LATERAL (GE Hitch RadioIC) CLINICAL HISTORY: CABG x 3 TECHNIQUE: PA [...] Teague APRN IMG DX ORDERABLES SCAN DOC: COOLER SERVICE SUPERVISOR (07/15/2017 12:00 AM EST) Narrative 07/15/2017 12:00 [...] Signature POC Glucose 186 65 - 199 [facility]dL [facility] LABORATORY Comment: Supplemental ranges: <140 mg/dL before meals <180 mg/dL all other times of the day Specimen Anatomical Collection Method Collection Time Receive d Time (Source) Location / / Volume Laterality Blood specimen 07/14/2017 11:56 7 (specimen) AM EST 11:56 AM EST Yuan Webber MD POINT OF CARE TEST ORDERABLE S Performing Organization Address City/State/[place] [address] POCT Glucose (07/14/2017 7:52 AM EST) athologist Signature POC Glucose 126 65 - 199 [facility]/dL [facility] LAB[facility] Comment: Supplemental ranges: <140 mg/dL before meals <180 mg/dL all other times of the day Specimen Anatomical Collection Method Collection Time Receive d Time (Source) Location / / Volume Laterality Blood specimen 07/14/2017 7:52 AM 017 7:52 (specimen) EST AM EST Yuan Webber MD POINT OF CARE TEST ORDERABLE S Performing Organization Address City/State/ZIP Code Phon e Number [address] (ABNORMAL) Prothrombin Time (07/14/2017 4:46 AM EST) athologist [facility] PT 26.4 (H) 11.8 - 14.0 [place] [...] Wilson APRN HEMATOLOGY ORDERABLES Performing Organization Address City/[facility]/[place]IP [place] [address] Potassium (07/14/2017 4:46 AM EST) [facility] Potassium 4.3 3.5 - 5.0 [facility] mmol/L [facility] LABOR[facility]ORY Comment: Please note: ??Patients with [...] STACIE CHEMISTRY ORDERABLES Performing Organization Address City/State/ZIP [facility] [place] [address] POCT Glucose (07/14/2017 4:34 AM EST) athologist Signature POC Glucose 115 65 - 199 [place] mg/dL [facility] LABOR[facility]ORY Comment: Supplemental ranges: <140 mg/dL before meals <180 mg/dL all other times of the day Specimen Anatomical Collection Method Collection Time Receive d Time (Source) Location / / Volume Laterality Blood specimen 07/14/2017 4:34 AM 017 4:34 (specimen) EST AM EST Yuan Webber MD POINT OF CARE TEST ORDERABLE S Performing Organization Address City/State/ZIP Code Phon e Number [address] POCT Glucose (07/13/2017 11:33 PM EST) athologist Signature POC Glucose 132 65 - 199 [place] mg/dL [facility] LABORATORY Comment: Supplemental ranges: <140 mg/dL before meals <180 mg/dL all other times of the day Specimen Anatomical Collection Method Collection Time Receive d Time (Source) Location / / Volume Laterality Blood specimen 07/13/2017 11:33 7 (specimen) PM EST 11:33 PM EST Yuan Webber MD POINT OF CARE TEST ORDERABLE S Performing Organization Address City/State/ZIP Code Phon e Number [address] POCT Glucose (07/13/2017 9:25 PM EST) athologist Signature POC Glucose 121 65 - 199 [place] mg/dL [facility] LABORATORY Comment: Supplemental ranges: <140 mg/dL before meals <180 mg/dL all other times of the day Specimen Anatomical Collection Method Collection Time Receive d Time (Source) Location / / Volume Laterality Blood specimen 07/13/2017 9:25 PM 017 9:25 (specimen) EST PM EST Yuan Webber MD POINT OF CARE TEST ORDERABLE S Performing Organization Address City/State/ZIP Code Phon e Number [address] POCT Glucose (07/13/2017 4:55 PM EST) athologist Signature POC Glucose 79 65 - 199 [place] mg/dL [facility] LABORATORY Comment: Supplemental ranges: <140 mg/dL before meals <180 mg/dL all other times of the day Specimen Anatomical Collection Method Collection Time Receive d Time (Source) Location / / Volume Laterality Blood specimen 07/13/2017 4:55 PM 017 4:55 (specimen) EST PM EST Yuan Webber MD POINT OF CARE TEST ORDERABLE S Performing Organization Address City/State/ZIP Code Phon e Number [address] POCT Glucose (07/13/2017 11:16 AM EST) P athologist Signature POC Glucose 163 65 - 199 [facility]dL [facility] LABOR[facility]ORY Comment: Supplemental ranges: <140 mg/dL before meals <180 mg/dL all other times of the day Specimen Anatomical Collection Method Collection Time Receive d Time (Source) Location / / Volume Laterality Blood specimen 07/13/2017 11:16 7 (specimen) AM EST 11:16 AM EST Yuan Webber MD POINT OF CARE TEST ORDERABLE S Performing Organization Address City/State/ZIP Code Phon e Number [address] POCT Glucose (07/13/2017 8:07 AM EST) P athologist Signature POC Glucose 96 65 - 199 [facility]dL [facility] Comment: Supplemental ranges: <140 mg/dL before meals <180 mg/dL all other times of the day Specimen Anatomical Collection Method Collection Time Receive d Time (Source) Location / / Volume Laterality Blood specimen 07/13/2017 8:07 AM 017 8:07 (specimen) EST AM EST Yuan Webber MD POINT OF CARE TEST ORDERABLE S Performing Organization Address City/State/ZIP Code Phon e Number [address] (ABNORMAL) Prothrombin Time (07/13/2017 [...] Organization Address City/State/[place] [address] (ABNORMAL) Basic Metabolic Panel (non-fasting) (07/13/2017 4:26 AM EST) athologist Signature Glucose Lvl 95 65 - 199 [facility] mg/dL [facility] LABORATORY Comment: Diabetes: >=200 mg/dL plus [...] [facility] Estimated GFR 60 >=60 [facility] LAB[facility] Comment: The reported eGFR should be multiplied b y 1.2 for patients. The MDRD is not an appropriate measure o f renal function for patients with body mass extremes or in patients with acute kidney failure. http://[employer]/DHnkdep http://[employer]/DHMCnkf Specimen Anatomical Collection Method Collection Time Receive d Time (Source) Location / / Volume Laterality Blood specimen 07/13/2017 4:26 AM 017 4:46 (specimen) EST AM EST Resulting Agency Comment Spec In Lab Makayla Wilson APRN CHEMISTRY ORDERABLES Performing Organization Address City/[facility]/ZIP [facility] Phon e Number [address] POCT Glucose (07/13/2017 3:52 AM EST) P athologist Signature POC Glucose 93 65 - 199 [facility]/dL [facility] Comment: Supplemental ranges: <140 mg/dL [...] [facility]/ZIP Code Phon e Number [address] POCT Glucose (07/13/2017 12:21 AM EST) athologist Signature POC Glucose 80 65 - 199 [facility]dL [facility] LAB[facility] Comment: Supplemental ranges: <140 mg/dL before meals <180 mg/dL all other times of the day Specimen Anatomical Collection Method Collection Time Receive d Time (Source) Location / / Volume Laterality Blood specimen 07/13/2017 12:21 7 (specimen) AM EST 12:21 AM EST Yuan eWbber MD POINT OF CARE TEST ORDERABLE S Performing Organization Address City/State/ZIP Code Phon e Number [address] POCT Glucose (07/12/2017 8:22 PM EST) athologist Signature POC Glucose 119 65 - 199 [place] mg/dL [facility] LABOR[facility] Comment: Supplemental ranges: <140 mg/dL before meals <180 mg/dL all other times of the day Specimen Anatomical Collection Method Collection Time Receive d Time (Source) Location / / Volume Laterality Blood specimen 07/12/2017 8:22 PM 017 8:22 (specimen) EST PM EST Yuan Webber MD POINT OF CARE TEST ORDERABLE S Performing Organization Address City/State/ZIP Code Phon e Number [address] POCT Glucose (07/12/2017 4:02 PM EST) athologist Signature POC Glucose 114 65 - 199 [place] mg/dL [facility] LABOR[facility]ORY Comment: Supplemental ranges: <140 mg/dL before meals <180 mg/dL all other times of the day Specimen Anatomical Collection Method Collection Time Receive d Time (Source) Location / / Volume Laterality Blood specimen 07/12/2017 4:02 PM 017 4:02 (specimen) EST PM EST Yuan Webber MD POINT OF CARE TEST ORDERABLE S Performing Organization Address City/State/ZIP Code Phon e Number [address] POCT Glucose (07/12/2017 11:28 AM EST) athologist Signature POC Glucose 164 65 - 199 [facility] RYAN mg/dL [facility] LABORATORY Comment: Supplemental ranges: <140 mg/dL before meals <180 mg/dL all other times of the day Specimen Anatomical Collection Method Collection Time Receive d Time (Source) Location / / Volume Laterality Blood specimen 07/12/2017 11:28 7 (specimen) AM EST 11:28 AM EST Yuan Webber MD POINT OF CARE TEST ORDERABLE S Performing Organization Address City/State/ZIP Code Phon e Number [address] POCT Glucose (07/12/2017 7:34 AM EST) athologist Signature POC Glucose 109 65 - 199 [facility] mg/dL [facility] LABORATORY Comment: Supplemental ranges: <140 mg/dL before meals <180 mg/dL all other times of the day Specimen Anatomical Collection Method Collection Time Receive d Time (Source) Location / / Volume Laterality Blood specimen 07/12/2017 7:34 AM 017 7:34 (specimen) EST AM EST Yuan Webber MD POINT OF CARE TEST ORDERABLE S Performing Organization Address City/State/[place] [address] (ABNORMAL) Basic Metabolic Panel (non-fasting) (07/12/2017 4:11 AM EST) athologist Signature Glucose Lvl 92 65 - 199 [facility] mg/dL [facility] LABORATORY Comment: Diabetes: >=200 mg/dL plus [...] HOSPITAL LABORATORY Estimated GFR 58 (L) >=60 [facility] LABORATORY Comment: The reported eGFR should be multiplied b y 1.2 for patients. The MDRD is not an appropriate measure o f renal function for patients with body mass extremes or in patients with acute kidney failure. http://[employer]ostang/DHnkdep http://[employer]/DHMCnkf Specimen Anatomical Collection Method Collection Time Receive d Time (Source) Location / / Volume Laterality Blood specimen 07/12/2017 4:11 AM 017 8:57 (specimen) EST AM EST Resulting Agency Comment Spec In Lab [facility] CHEMISTRY ORDERABLES Performing Organization Address [facility] Phon e Number [place] [phone] (ABNORMAL) Prothrombin Time (07/12/2017 [...] EST Resulting Agency Comment Spec In Lab [facility] HEMATOLOGY ORDERABLES Performing Organization Address [facility] [place] [address] Potassium (07/12/2017 4:11 AM EST) P athologist Signature Potassium 3.8 3.5 - 5.0 [facility] mmol/L [facility] LABOR[facility]ORY Comment: Please note: ??Patients with [...] Address City/State/ZIP Code Phon e Number [address] POCT Glucose (07/12/2017 4:10 AM EST) athologist Signature POC Glucose 90 65 - 199 [facility] R[place] mg/dL [facility] LAB[facility]ORY Comment: Supplemental ranges: <140 mg/dL before meals <180 mg/dL all other times of the day Specimen Anatomical Collection Method Collection Time Receive d Time (Source) Location / / Volume Laterality Blood specimen 07/12/2017 4:10 AM 017 4:10 (specimen) EST AM EST Yuan Webber MD POINT OF CARE TEST ORDERABLE S Performing Organization Address City/State/ZIP Code Phon e Number [address] POCT Glucose (07/11/2017 11:57 PM EST) athologist Signature POC Glucose 98 65 - 199 [facility]/dL [facility] Comment: Supplemental ranges: <140 mg/dL before meals <180 mg/dL all other times of the day Specimen Anatomical Collection Method Collection Time Receive d Time (Source) Location / / Volume Laterality Blood specimen 07/11/2017 11:57 7 (specimen) PM EST 11:57 PM EST Yuan Webber MD POINT OF CARE TEST ORDERABLE S Performing Organization Address City/State/ZIP Code Phon e Number [address] POCT Glucose (07/11/2017 8:32 PM EST) athologist Signature POC Glucose 146 65 - 199 [facility]/dL [facility] Comment: Supplemental ranges: <140 mg/dL before meals <180 mg/dL all other times of the day Specimen Anatomical Collection Method Collection Time Receive d Time (Source) Location / / Volume Laterality Blood specimen 07/11/2017 8:32 PM 017 8:32 (specimen) EST PM EST Yuan Webber MD POINT OF CARE TEST ORDERABLE S Performing Organization Address City/State/ZIP [place] [address] XR Chest PA & [...] e xtubated, left chest tube removed, and [place]uzi catheter removed since the study. Atelectasis at [...] e xtubated, left chest tube removed, and [place] catheter removed since the study. Atelectasis at [...] 65 - 199 [place] mg/dL [facility] Comment: Supplemental ranges: <140 mg/dL before meals <180 mg/dL all other times of the day Specimen Anatomical Collection Method Collection Time Receive d Time (Source) Location / / Volume Laterality Blood specimen 07/11/2017 4:05 PM 017 4:05 (specimen) EST PM EST Yuan Webber MD POINT OF CARE TEST ORDERABLE S Performing Organization Address City/State/ZIP Code Phon e Number [address] POCT Glucose (07/11/2017 11:55 AM EST) athologist Signature POC Glucose 176 65 - 199 [facility] R[facility] mg/dL [facility] Comment: Supplemental ranges: <140 mg/dL before meals <180 mg/dL all other times of the day Specimen Anatomical Collection Method Collection Time Receive d Time (Source) Location / / Volume Laterality Blood specimen 07/11/2017 11:55 7 (specimen) AM EST 11:55 AM EST Authorizing Provider Result Mikaela Webber MD POINT OF CARE TEST ORDERABLE S Performing Organization Address City/State/Z[place] [address] POCT Glucose (07/11/2017 7:53 AM EST) athologist Signature POC Glucose 189 65 - 199 [place] mg/dL [facility] Comment: Supplemental ranges: <140 mg/dL before meals <180 mg/dL all other times of the day Specimen Anatomical Collection Method Collection Time Receive d Time (Source) Location / / Volume Laterality Blood specimen 07/11/2017 7:53 AM 017 7:53 (specimen) EST AM EST Authorizing Provider Result Mikaela Webber MD POINT OF CARE TEST ORDERABLE S Performing Organization Address City/State/Z[place] [address] POCT Glucose (07/11/2017 4:22 AM EST) athologist Signature POC Glucose 151 65 - 199 [place] mg/dL [facility] LAB[facility]ORY Comment: Supplemental ranges: <140 mg/dL before meals <180 mg/dL all other times of the day Specimen Anatomical Collection Method Collection Time Receive d Time (Source) Location / / Volume Laterality Blood specimen 07/11/2017 4:22 AM 017 4:22 (specimen) EST AM EST Yuan Webber MD POINT OF CARE TEST ORDERABLE S Performing Organization Address City/State/ZIP Code Phon e Number [address] Potassium (07/11/2017 2:20 AM EST) athologist Signature Potassium 4.5 3.5 - 5.0 [facility] mmol/L [facility] LABORATORY Comment: Please note: ??Patients with [...] Webber MD CHEMISTRY ORDERABLES Performing Organization Address City/[facility]/ZIP Code Phon e Number [address] POCT Glucose (07/11/2017 12:17 AM EST) athologist Signature POC Glucose 162 65 - 199 [place] mg/dL [facility] LABOR[facility]ORY Comment: Supplemental ranges: <140 mg/dL before meals <180 mg/dL all other times of the day Specimen Anatomical Collection Method Collection Time Receive d Time (Source) Location / / Volume Laterality Blood specimen 07/11/2017 12:17 7 (specimen) AM EST 12:17 AM EST Yuan Webber MD POINT OF CARE TEST ORDERABLE S Performing Organization Address City/State/ZIP Code Phon e Number [address] POCT Glucose (07/10/2017 8:47 PM EST) athologist Signature POC Glucose 191 65 - 199 [place] mg/dL [facility] Comment: Supplemental ranges: <140 mg/dL [...] [facility]/ZIP Code Phon e Number [address] POCT Glucose (07/10/2017 4:06 PM EST) athologist Signature POC Glucose 131 65 - 199 [place] mg/dL [facility] LABOR[facility]ORY Comment: Supplemental ranges: <140 mg/dL before meals <180 mg/dL all other times of the day Specimen Anatomical Collection Method Collection Time Receive d Time (Source) Location / / Volume Laterality Blood specimen 07/10/2017 4:06 PM 017 4:06 (specimen) EST PM EST Yuan Webber MD POINT OF CARE TEST ORDERABLE S Performing Organization Address City/State/ZIP Code Phon e Number [address] POCT Glucose (07/10/2017 3:08 PM EST) athologist Signature POC Glucose 151 65 - 199 [place] mg/dL [facility] LABOR[facility]ORY Comment: Supplemental ranges: <140 mg/dL before meals <180 mg/dL all other times of the day Specimen Anatomical Collection Method Collection Time Receive d Time (Source) Location / / Volume Laterality Blood specimen 07/10/2017 3:08 PM 017 3:08 (specimen) EST PM EST Yuan Webber MD POINT OF CARE TEST ORDERABLE S Performing Organization Address City/State/ZIP Code Phon e Number [address] POCT Glucose (07/10/2017 2:25 PM EST) athologist Signature POC Glucose 146 65 - 199 [place] mg/dL [facility] LABORATORY Comment: Supplemental ranges: <140 mg/dL before meals <180 mg/dL all other times of the day Specimen Anatomical Collection Method Collection Time Receive d Time (Source) Location / / Volume Laterality Blood specimen 07/10/2017 2:25 PM 017 2:25 (specimen) EST PM EST Yuan Webber MD POINT OF CARE TEST ORDERABLE S Performing Organization Address City/State/ZIP Code Phon e Number [address] POCT Glucose (07/10/2017 1:23 PM EST) athologist Signature POC Glucose 166 65 - 199 [place] mg/dL [facility] LABORATORY Comment: Supplemental ranges: <140 mg/dL before meals <180 mg/dL all other times of the day Specimen Anatomical Collection Method Collection Time Receive d Time (Source) Location / / Volume Laterality Blood specimen 07/10/2017 1:23 PM 017 1:23 (specimen) EST PM EST Yuan Webber MD POINT OF CARE TEST ORDERABLE S Performing Organization Address City/State/ZIP Code Phon e Number [address] POCT Glucose (07/10/2017 11:52 AM EST) athologist Signature POC Glucose 157 65 - 199 [place] mg/dL [facility] LABOR[facility]ORY Comment: Supplemental ranges: <140 mg/dL before meals <180 mg/dL all other times of the day Specimen Anatomical Collection Method Collection Time Receive d Time (Source) Location / / Volume Laterality Blood specimen 07/10/2017 11:52 7 (specimen) AM EST 11:52 AM EST Yuan Webber MD POINT OF CARE TEST ORDERABLE S Performing Organization Address City/State/ZIP [place] [address] POCT Glucose (07/10/2017 11:01 AM EST) athologist Signature POC Glucose 158 65 - 199 [place] mg/dL [facility] LABORATORY Comment: Supplemental ranges: <140 mg/dL before meals <180 mg/dL all other times of the day Specimen Anatomical Collection Method Collection Time Receive d Time (Source) Location / / Volume Laterality Blood specimen 07/10/2017 11:01 7 (specimen) AM EST 11:01 AM EST Yuan Webber MD POINT OF CARE TEST ORDERABLE S Performing Organization Address City/State/ZIP Code Phon e Number [address] POCT Glucose (07/10/2017 9:54 AM EST) athologist Signature POC Glucose 160 65 - 199 [place] mg/dL [facility] LABORATORY Comment: Supplemental ranges: <140 mg/dL before meals <180 mg/dL all other times of the day Specimen Anatomical Collection Method Collection Time Receive d Time (Source) Location / / Volume Laterality Blood specimen 07/10/2017 9:54 AM 017 9:54 (specimen) EST AM EST Yuan Webber MD POINT OF CARE TEST ORDERABLE S Performing Organization Address City/State/ZIP Code Phon e Number [address] POCT Glucose (07/10/2017 8:58 AM EST) athologist Signature POC Glucose 183 65 - 199 [place] mg/dL [facility] LABORATORY Comment: Supplemental ranges: <140 mg/dL before meals <180 mg/dL all other times of the day Specimen Anatomical Collection Method Collection Time Receive d Time (Source) Location / / Volume Laterality Blood specimen 07/10/2017 8:58 AM 017 8:58 (specimen) EST AM EST Yuan Webber MD POINT OF CARE TEST ORDERABLE S Performing Organization Address City/State/ZIP Code Phon e Number [address] POCT Glucose (07/10/2017 8:01 AM EST) athologist Signature POC Glucose 173 65 - 199 [facility] mg/dL [facility] LABORATORY Comment: Supplemental ranges: <140 mg/dL before meals <180 mg/dL all other times of the day Specimen Anatomical Collection Method Collection Time Receive d Time (Source) Location / / Volume Laterality Blood specimen 07/10/2017 8:01 AM 017 8:01 (specimen) EST AM EST Yuan Webber MD POINT OF CARE TEST ORDERABLE S Performing Organization Address City/State/ZIP Code Phon e Number [address] POCT Glucose (07/10/2017 7:05 AM EST) athologist Signature POC Glucose 166 65 - 199 [facility] mg/dL [facility] LABORATORY Comment: Supplemental ranges: <140 mg/dL before meals <180 mg/dL all other times of the day Specimen Anatomical Collection Method Collection Time Receive d Time (Source) Location / / Volume Laterality Blood specimen 07/10/2017 7:05 AM 017 7:05 (specimen) EST AM EST Yuan Webber MD POINT OF CARE TEST ORDERABLE S Performing Organization Address City/State/ZIP Code Phon e Number [address] POCT Glucose (07/10/2017 6:00 AM EST) athologist Signature POC Glucose 162 65 - 199 [place] mg/dL [facility] LABORATORY Comment: Supplemental ranges: <140 mg/dL before meals <180 mg/dL all other times of the day Specimen Anatomical Collection Method Collection Time Receive d Time (Source) Location / / Volume Laterality Blood specimen 07/10/2017 6:00 AM 017 6:00 (specimen) EST AM EST Yuan Webber MD POINT OF CARE TEST ORDERABLE S Performing Organization Address City/State/[place] [address] (ABNORMAL) Differential, Automated (07/10/2017 4:28 AM EST) Patholo gist Method Time Signature Neutrophils % 87.9 % [facility] LABORATORY Neutr Abs (ANC) 10.70 (H) 1.70 - [facility] 6.10 [facility] x10(3)/[facility] L LABORATORY Lymphocytes % 3.9 % [facility] LABORATORY Lymphocytes Abs 0.5 (L) 0.9 - 3.2 [facility] x10(3)/[facility] LABORATORY Monocytes % 7.0 % [facility] LABORATORY Monocyte Abs 0.8 0.3 - 0.9 [facility] x10(3)/[facility] LABORATORY Eosinophils % 0.3 % [facility] LABORATORY Eosinophils Abs 0.0 0.0 - 0.4 [facility] x10(3)/[facility] LABORATORY Basophils % 0.2 % [facility] LABORATORY Basophils Abs 0.0 0.0 - 0.1 [place] 781450(3)/[facility] LABORATORY Immature Gran % 0.70 [...] Gran Abs 0.08 (H) 0.00 - 0.04 x10(3)/[facility] LABORATORY Specimen Anatomical Collection Method Collection Time Receive d Time (Source) Location / / Volume Laterality Blood specimen 07/10/2017 4:28 AM 017 4:36 (specimen) EST AM EST Resulting Agency Comment Spec In Lab Yuan Webber MD HEMATOLOGY ORDERABLES Performing Organization Address City/State/[place] [address] (ABNORMAL) Hemogram (07/10/2017 4:28 AM EST) Analysis [facility]formed At [facility] Time Signature WBC 12.2 (H) 4.0 - 9.5 [facility] x10(3)/[facility] LABORATORY RBC 3.31 (L) 4.58 - [facility] 5.54 [facility] x10(6)/[facility] LABORATORY Hemoglobin 9.8 (L) 13.7 - [facility] 16.[facility] gm/dL [facility] LABORATORY Hematocrit 30.0 (L) 40.5 - [facility] 48.5 % [facility] LABORATORY MCV 90.6 82.9 - [facility] 93.1 [facility] LABORATORY MCH 29.6 27.5 - [facility] 32.1 pg [facility] LABORATORY MCHC 32.7 32.0 - [facility] 35.7 gm/dL [facility] LABORATORY Platelets 135 (L) 145 - 357 [facility] x10(3)/[facility] LABORATORY RDWSD 50.8 (H) 36.0 - [facility] 45.0 [facility] LABORATORY RDWCV 15.4 (H) 11.4 - [facility] 13.8 % [facility] LABORATORY MPV 10.0 7.6 - 12.9 [facility] LABORATORY nRBC % Auto 0.0 % [facility] LABORATORY nRBC Abs Auto 0.000 0.000 - [facility] 0.000 [facility] x10(3)/[facility] LABORATORY Specimen Anatomical Collection Method Collection Time Receive d Time (Source) Location / / Volume Laterality Blood specimen 07/10/2017 4:28 AM 017 4:36 (specimen) EST AM EST Resulting Agency Comment Spec In Lab Yuan Webber MD HEMATOLOGY ORDERABLES Performing Organization Address City/State/[place] [address] (ABNORMAL) Basic Metabolic Panel (non-fasting) (07/10/2017 4:28 AM EST) P athologist Signature Glucose Lvl 178 65 - 199 [facility] mg/dL [facility] LABORATORY Comment: Diabetes: >=200 mg/dL plus symp toms BUN 20 10 - 20 mg/dL [facility] LABORATORY Creatinine 1.19 0.80 - 1.50 mg/dL [facility] Sodium 143 135 - 145 [...] [facility] Estimated GFR 60 >=60 [facility] LABORATORY Comment: The reported eGFR should be multiplied b y 1.2 for patients. The MDRD is not an appropriate measure o f renal function for patients with body mass extremes or in patients with acute kidney failure. http://[employer]/DHnkdep http://[employer]/DHMCnkf Specimen Anatomical Collection Method Collection Time Receive d Time (Source) Location / / Volume Laterality Blood specimen 07/10/2017 4:28 AM 017 4:36 (specimen) EST AM EST Resulting Agency Comment Spec In Lab Yuan Webber MD CHEMISTRY ORDERABLES Performing Organization Address City/State/ZIP [place] [address] POCT Glucose (07/10/2017 4:26 AM EST) P athologist Signature POC Glucose 176 65 - 199 [facility] mg/dL [facility] LABORATORY Comment: Supplemental ranges: <140 mg/dL before meals <180 mg/dL all other times of the day Specimen Anatomical Collection Method Collection Time Receive d Time (Source) Location / / Volume Laterality Blood specimen 07/10/2017 4:26 AM 017 4:26 (specimen) EST AM EST Yuan Webber MD POINT OF CARE TEST ORDERABLE S Performing Organization Address City/State/ZIP [place] [address] (ABNORMAL) POCT Glucose (07/10/2017 3:06 AM EST) P athologist Signature POC Glucose 204 (H) 65 - 199 [facility] mg/dL [facility] LABORATORY Comment: Supplemental ranges: <140 mg/dL before meals <180 mg/dL all other times of the day Specimen Anatomical Collection Method Collection Time Receive d Time (Source) Location / / Volume Laterality Blood specimen 07/10/2017 3:06 AM 017 3:06 (specimen) EST AM EST Yuan Webber MD POINT OF CARE TEST ORDERABLE S Performing Organization Address City/State/ZIP Code Phon e Number [address] (ABNORMAL) POCT Glucose (07/10/2017 2:10 AM EST) athologist Signature POC Glucose 203 (H) 65 - 199 [facility] LABORATORY Comment: Supplemental ranges: <140 mg/dL before meals <180 mg/dL all other times of the day Specimen Anatomical Collection Method Collection Time Receive d Time (Source) Location / / Volume Laterality Blood specimen 07/10/2017 2:10 AM 017 2:10 (specimen) EST AM EST Yuan Webber MD POINT OF CARE TEST ORDERABLE S Performing Organization Address City/State/ZIP [place] [address] POCT Glucose (07/10/2017 1:09 AM EST) athologist Signature POC Glucose 196 65 - 199 [facility] mg/dL [facility] LABORATORY Comment: Supplemental ranges: <140 mg/dL before meals <180 mg/dL all other times of the day Specimen Anatomical Collection Method Collection Time Receive d Time (Source) Location / / Volume Laterality Blood specimen 07/10/2017 1:09 AM 017 1:09 (specimen) EST AM EST Yuan Webber MD POINT OF CARE TEST ORDERABLE S Performing Organization Address City/State/ZIP Code Phon e Number [address] POCT Glucose (07/10/2017 12:10 AM EST) athologist Signature POC Glucose 173 65 - 199 [place] mg/dL [facility] LABORATORY Comment: Supplemental ranges: <140 mg/dL before meals <180 mg/dL all other times of the day Specimen Anatomical Collection Method Collection Time Receive d Time (Source) Location / / Volume Laterality Blood specimen 07/10/2017 12:10 7 (specimen) AM EST 12:10 AM EST Yuan Webber MD POINT OF CARE TEST ORDERABLE S Performing Organization Address City/State/ZIP Code Phon e Number [address] POCT Glucose (07/09/2017 11:01 PM EST) athologist Signature POC Glucose 140 65 - 199 [facility] mg/dL [facility] LABORATORY Comment: Supplemental ranges: <140 mg/dL before meals <180 mg/dL all other times of the day Specimen Anatomical Collection Method Collection Time Receive d Time (Source) Location / / Volume Laterality Blood specimen 07/09/2017 11:01 7 (specimen) PM EST 11:01 PM EST Yuan Webber MD POINT OF CARE TEST ORDERABLE S Performing Organization Address City/State/ZIP Code Phon e Number [address] POCT Glucose (07/09/2017 10:05 PM EST) athologist Signature POC Glucose 144 65 - 199 [place] mg/dL [facility] LABORATORY Comment: Supplemental ranges: <140 mg/dL before meals <180 mg/dL all other times of the day Specimen Anatomical Collection Method Collection Time Receive d Time (Source) Location / / Volume Laterality Blood specimen 07/09/2017 10:05 7 (specimen) PM EST 10:05 PM EST Yuan Webber MD POINT OF CARE TEST ORDERABLE S Performing Organization Address City/State/ZIP [place] [address] POCT Glucose (07/09/2017 9:31 PM EST) athologist Signature POC Glucose 121 65 - 199 [place] mg/dL [facility] LABORATORY Comment: Supplemental ranges: <140 mg/dL before meals <180 mg/dL all other times of the day Specimen Anatomical Collection Method Collection Time Receive d Time (Source) Location / / Volume Laterality Blood specimen 07/09/2017 9:31 PM 017 9:31 (specimen) EST PM EST Yuan Webber MD POINT OF CARE TEST ORDERABLE S Performing Organization Address City/State/ZIP Code Phon e Number [address] POCT Glucose (07/09/2017 9:03 PM EST) athologist Signature POC Glucose 98 65 - 199 [place] mg/dL [facility] LABORATORY Comment: Supplemental ranges: <140 mg/dL before meals <180 mg/dL all other times of the day Specimen Anatomical Collection Method Collection Time Receive d Time (Source) Location / / Volume Laterality Blood specimen 07/09/2017 9:03 PM 017 9:03 (specimen) EST PM EST Yuan Webber MD POINT OF CARE TEST ORDERABLE S Performing Organization Address City/State/ZIP Code Phon e Number [address] POCT Glucose (07/09/2017 8:09 PM EST) athologist Signature POC Glucose 117 65 - 199 [facility] mg/dL [facility] LABORATORY Comment: Supplemental ranges: <140 mg/dL before meals <180 mg/dL all other times of the day Specimen Anatomical Collection Method Collection Time Receive d Time (Source) Location / / Volume Laterality Blood specimen 07/09/2017 8:09 PM 017 8:09 (specimen) EST PM EST Yuan Webber MD POINT OF CARE TEST ORDERABLE S Performing Organization Address City/State/ZIP Code Phon e Number [address] POCT Glucose (07/09/2017 5:40 PM EST) athologist Signature POC Glucose 155 65 - 199 [place] mg/dL [facility] LABORATORY Comment: Supplemental ranges: <140 mg/dL before meals <180 mg/dL all other times of the day Specimen Anatomical Collection Method Collection Time Receive d Time (Source) Location / / Volume Laterality Blood specimen 07/09/2017 5:40 PM 017 5:40 (specimen) EST PM EST Yuan Webber MD POINT OF CARE TEST ORDERABLE S Performing Organization Address City/State/ZIP Code Phon e Number [address] POCT Glucose (07/09/2017 4:24 PM EST) athologist Signature POC Glucose 164 65 - 199 [facility] mg/dL [facility] LABORATORY Comment: Supplemental ranges: <140 mg/dL before meals <180 mg/dL all other times of the day Specimen Anatomical Collection Method Collection Time Receive d Time (Source) Location / / Volume Laterality Blood specimen 07/09/2017 4:24 PM 017 4:24 (specimen) EST PM EST Yuan Webber MD POINT OF CARE TEST ORDERABLE S Performing Organization Address City/State/ZIP Code Phon e Number [address] POCT Glucose (07/09/2017 3:19 PM EST) athologist Signature POC Glucose 166 65 - 199 [place] mg/dL [facility] LABORATORY Comment: Supplemental ranges: <140 mg/dL before meals <180 mg/dL all other times of the day Specimen Anatomical Collection Method Collection Time Receive d Time (Source) Location / / Volume Laterality Blood specimen 07/09/2017 3:19 PM 017 3:19 (specimen) EST PM EST Yuan Webber MD POINT OF CARE TEST ORDERABLE S Performing Organization Address City/State/ZIP [place] [address] POCT Glucose (07/09/2017 2:26 PM EST) athologist Signature POC Glucose 179 65 - 199 [facility] LABORATORY Comment: Supplemental ranges: <140 mg/dL before meals <180 mg/dL all other times of the day Specimen Anatomical Collection Method Collection Time Receive d Time (Source) Location / / Volume Laterality Blood specimen 07/09/2017 2:26 PM 017 2:26 (specimen) EST PM EST Yuan Webber MD POINT OF CARE TEST ORDERABLE S Performing Organization Address City/State/ZIP [place] [address] (ABNORMAL) POCT Glucose (07/09/2017 1:29 PM EST) athologist Signature POC Glucose 210 (H) 65 - 199 [facility]/dL [facility] LABORATORY Comment: Supplemental ranges: <140 mg/dL before meals <180 mg/dL all other times of the day Specimen Anatomical Collection Method Collection Time Receive d Time (Source) Location / / Volume Laterality Blood specimen 07/09/2017 1:29 PM 017 1:29 (specimen) EST PM EST Yuan Webber MD POINT OF CARE TEST ORDERABLE S Performing Organization Address City/State/ZIP [place] [address] POCT Glucose (07/09/2017 12:20 PM EST) athologist Signature POC Glucose 172 65 - 199 [facility]/dL [facility] LABORATORY Comment: Supplemental ranges: <140 mg/dL before meals <180 mg/dL all other times of the day Specimen Anatomical Collection Method Collection Time Receive d Time (Source) Location / / Volume Laterality Blood specimen 07/09/2017 12:20 7 (specimen) PM EST 12:20 PM EST Yuan Webber MD POINT OF CARE TEST ORDERABLE S Performing Organization Address City/State/ZIP [place] [address] POCT Glucose (07/09/2017 11:24 AM EST) athologist Signature POC Glucose 156 65 - 199 [facility] mg/dL [facility] LABORATORY Comment: Supplemental ranges: <140 mg/dL before meals <180 mg/dL all other times of the day Specimen Anatomical Collection Method Collection Time Receive d Time (Source) Location / / Volume Laterality Blood specimen 07/09/2017 11:24 7 (specimen) AM EST 11:24 AM EST Yuan Webber MD POINT OF CARE TEST ORDERABLE S Performing Organization Address City/State/ZIP Code Phon e Number [address] POCT Glucose (07/09/2017 11:11 AM EST) P athologist Signature POC Glucose 172 65 - 199 [place] mg/dL [facility] LABORATORY Comment: Supplemental ranges: <140 mg/dL before meals <180 mg/dL all other times of the day Specimen Anatomical Collection Method Collection Time Receive d Time (Source) Location / / Volume Laterality Blood specimen 07/09/2017 11:11 7 (specimen) AM EST 11:11 AM EST Yuan Webber MD POINT OF CARE TEST ORDERABLE S Performing Organization Address City/State/ZIP Code Phon e Number [address] POCT Glucose (07/09/2017 10:08 AM EST) P athologist Signature POC Glucose 176 65 - 199 [place] mg/dL [facility] LABORATORY Comment: Supplemental ranges: <140 mg/dL before meals <180 mg/dL all other times of the day Specimen Anatomical Collection Method Collection Time Receive d Time (Source) Location / / Volume Laterality Blood specimen 07/09/2017 10:08 7 (specimen) AM EST 10:08 AM EST Yuan Webber MD POINT OF CARE TEST ORDERABLE S Performing Organization Address City/State/ZIP Code Phon e Number [address] POCT Glucose (07/09/2017 8:02 AM EST) P athologist Signature POC Glucose 178 65 - 199 [facility] mg/dL [facility] LAB[facility]ATORY Comment: [...] Organization Address City/State/[place] [address] (ABNORMAL) BLOOD GAS 2 ARTERIAL (07/09/2017 5:37 AM EST) Analysis Performed At Patho logist Time Signature pH Art 7.36 7.35 - [facility] 7.45 [facility] LABORATORY pCO2 Art 38 35 - 45 [facility] LABORATORY pO2 Art 79 (L) 85 - 104 [facility] LABORATORY HCO3 Art 20.9 20.0 - [facility] 26.0 [facility] mmol/[facility] LABORATORY BE Art -4.6 (L) -3.0 - 3.0 [facility] mmol/L [facility] LABORATORY Hgb Blood Gas 10.5 (L) 13.7 - [facility] 16.5 gm/dL [facility] O2HB Art 93.8 (L) 94.0 - [facility] 97.0 % [facility] LABORATORY COHB Art 0.3 % [facility] FIO2 Art 40 % [facility] LABORATORY PF Ratio Art 198 [facility] LABORATORY Specimen Anatomical Collection Method Collection Time Receive d Time (Source) Location / / Volume Laterality Blood specimen 07/09/2017 5:37 AM 017 5:37 (specimen) EST AM EST Yuan Webber MD CHEMISTRY ORDERABLES Performing Organization Address City/[facility]/ZIP Code Phon e Number [address] POCT Glucose (07/09/2017 3:27 AM EST) P athologist Signature POC Glucose 192 65 - 199 [facility] mg/dL [facility] LABORATORY Comment: Supplemental ranges: <140 mg/dL [...] [facility]/ZIP [place] [address] (ABNORMAL) Basic Metabolic Panel (non-fasting) (07/09/2017 2:30 AM EST) P athologist Signature Glucose Lvl 179 65 - 199 [facility] mg/dL [facility] LABORATORY Comment: Diabetes: >=200 mg/dL plus [...] or in patients with acute kidney failure. http://[employer]/DHnkdep http://[employer]App/DHMCnkf Specimen Anatomical Collection Method Collection Time Receive d Time (Source) Location / / Volume Laterality Blood specimen Venous Draw / 07/09/2017 2:30 AM 2016 2:42 (specimen) Unknown EST AM EST Resulting Agency Comment Spec In Lab Yuan Webber MD CHEMISTRY ORDERABLES Performing Organization Address City/State/[place] [address] (ABNORMAL) Potassium (07/09/2017 2:30 AM EST) P athologist Signature Potassium 5.1 (H) 3.5 - 5.0 [facility] mmol/L [facility] LABORATORY Comment: Please note: ??Patients with [...] Webber MD CHEMISTRY ORDERABLES Performing Organization Address City/[facility]/[place] [address] (ABNORMAL) Hemogram (07/09/2017 2:30 AM EST) Analysis Performed At Patho logist Time Signature WBC 12.5 (H) 4.0 - 9.5 [facility] x10(3)/[facility] LABORATORY RBC 3.38 (L) 4.58 - [facility] 5.54 [facility] x10(6)/[facility] LABORATORY Hemoglobin 10.1 (L) 13.7 - [facility] 16.5 gm/dL [facility] LABORATORY Hematocrit 30.3 (L) 40.5 - [facility] 48.5 % [facility] LABORATORY MCV 89.6 82.9 - [facility] 93.1 [facility] LABORATORY MCH 29.9 27.5 - [place] [facility] 32.1 pg [facility] LABORATORY MCHC 33.3 32.0 - [place] [facility] 35.7 gm/dL [facility] LABORATORY Platelets 127 (L) 145 - 357 [facility] x10(3)/[facility] LABORATORY RDWSD 49.3 (H) 36.0 - [facility] 45.0 [facility] LABORATORY RDWCV 15.2 (H) 11.4 - [facility] 13.8 % [facility] LABORATORY MPV 9.9 7.6 - 12.9 [facility] nRBC % Auto 0.0 % [facility] LABORATORY nRBC Abs Auto 0.000 0.000 - [facility] 0.000 [facility] x10(3)/[facility] LABORATORY Specimen Anatomical Collection Method Collection Time Receive d Time (Source) Location / / Volume Laterality Blood specimen 07/09/2017 2:30 AM 017 2:41 (specimen) EST AM EST Resulting Agency Comment Spec In Lab Yuan Webber MD HEMATOLOGY ORDERABLES Performing Organization Address City/State/[place] [address] POCT Glucose (07/09/2017 2:10 AM EST) athologist Signature POC Glucose 169 65 - 199 [place] mg/dL [facility] LABORATORY Comment: Supplemental ranges: <140 mg/dL [...] [facility]/ZIP Code Phon e Number [address] POCT Glucose (07/09/2017 1:01 AM EST) athologist Signature POC Glucose 173 65 - 199 [place] mg/dL [facility] LABORATORY Comment: Supplemental ranges: <140 mg/dL [...] [facility]/[place] [address] Blood culture (07/09/2017 12:40 AM EST) [facility] gist Method Time Signature Blood Culture No growth BARBARA DAVIS at 5 days. [facility] LABORATORY Specimen Anatomical Collection Method Collection Time Receive d Time (Source) Location / / Volume Laterality Blood specimen STRUCTURE OF RIGHT 07/09/2017 12:40 3:58 (specimen) UPPER LIMB / AM EST AM EST Unknown Resulting Agency Comment Spec In Lab Yuan Webber MD MICROBIOLOGY - BLOOD ORDERAB LES Performing Organization Address City/State/[place] [address] Blood culture (07/09/2017 12:30 AM EST) [facility] gist Method Time Signature Blood Culture No growth BARBARA DAVIS at 5 days. [facility] LABORATORY Specimen Anatomical Collection Method Collection Time Receive d Time (Source) Location / / Volume Laterality Blood specimen STRUCTURE OF LEFT 07/09/2017 12:30 1211/2016 3:59 (specimen) UPPER LIMB / AM EST AM EST Unknown Resulting Agency Comment Spec In Lab Yuan Webber MD MICROBIOLOGY - BLOOD ORDERAB LES Performing Organization Address City/[facility]/ZIP [facility] [place] [address] (ABNORMAL) Urinalysis Microscopic Exam (07/09/2017 12:05 AM EST) Analysis Performed At Patho logist Time Signature RBC UA 32 (H) 0 - 3 /HPF [facility] LABORATORY WBC UA 5 (H) 0 - 3 /HPF [facility]OR[facility] Squam Epith UA <1 <=4 /HPF [facility] LABORATORY Hyaline Cast 17 (H) 0 - 2 /LPF [facility] LABORATORY Gran Cast UA 1 (H) <=0 /LPF [facility] LABORATORY Uric Ac Bianca Rare (A) None /HPF [facility] LABORATORY Specimen (Source) Anatomical Collection Method Collection Time Re ceived Time Location / / Volume Laterality Urine specimen 07/09/2017 12:05 07/09/ 7 obtained via AM EST 12:39 AM EST indwelling urinary catheter (specimen) Resulting Agency Comment Spec In Lab Yuan Webber MD URINE ORDERABLES Performing Organization Address City/[facility] [place] [address] (ABNORMAL) Urinalysis with reflex Culture (07/09/2017 12:05 AM EST) [employer] Method Time Signature Glucose UA Negative Negative [facility] R[facility] mg/dL [facility] LABORATORY Protein UA 30 (A) Negative [facility] LABORATORY Bilirubin UA Negative Negative [facility]/dL [facility] LABORATORY Comment: Clinical correlation required for [...] CENTER LABORATORY Ketones UA Negative Negative mg/dL [facility] LABOR[facility] Nitrite UA Negative Negative [facility] LAB[facility] Leukocytes UA Negative Negative [facility] LABORATORY Appearance UA Hazy (A) Clear [facility] LABORATORY Spec [place] UA 1.025 1.002 - 1.030 [facility] LABORATORY Color UA Yellow Yellow [facility] LABORATORY Culture Reflexed No [facility] LABORATORY Specimen (Source) Anatomical Collection Method Collection Time Re ceived Time Location / / Volume Laterality Urine specimen 07/09/2017 12:05 7 obtained via AM EST 12:39 AM EST indwelling urinary catheter (specimen) Resulting Agency Comment Spec In Lab Yuan Webber MD URINE ORDERABLES Performing Organization Address City/[facility]/ZIP Code Phon e Number [address] POCT Glucose (07/08/2017 11:01 PM EST) athologist Signature POC Glucose 191 65 - 199 [facility]dL [facility] LABORATORY Comment: Supplemental ranges: <140 mg/dL [...] [facility]/ZIP Code Phon e Number [address] POCT Glucose (07/08/2017 10:04 PM EST) athologist Signature POC Glucose 198 65 - 199 [facility] LABORATORY Comment: Supplemental ranges: <140 mg/dL before meals <180 mg/dL all other times of the day Specimen Anatomical Collection Method Collection Time Receive d Time (Source) Location / / Volume Laterality Blood specimen 07/08/2017 10:04 7 (specimen) PM EST 10:04 PM EST Yuan Webber MD POINT OF CARE TEST ORDERABLE S Performing Organization Address City/State/[place] [address] Prepare Albumin 5% in [...] [facility] ORDERABLES Performing Organization Address City/[facility]/[place]IP [place] [address] POCT Glucose (07/08/2017 8:28 PM EST) P athologist Signature POC Glucose 195 65 - 199 [facility]/dL [facility] LABORATORY Comment: Supplemental ranges: <140 mg/dL [...] [facility]/[place]IP [place] [address] (ABNORMAL) POCT Glucose (07/08/2017 7:13 PM EST) P athologist Signature POC Glucose 220 (H) 65 - 199 [facility]/dL [facility] LABORATORY Comment: Supplemental ranges: <140 mg/dL before meals <180 mg/dL all other times of the day Specimen Anatomical Collection Method Collection Time Receive d Time (Source) Location / / Volume Laterality Blood specimen 07/08/2017 7:13 PM 017 7:13 (specimen) EST PM EST Yuan Webber MD POINT OF CARE TEST ORDERABLE S Performing Organization Address City/State/ZIP [place] [address] POCT Glucose (07/08/2017 5:04 PM EST) P athologist Signature POC Glucose 147 65 - 199 [facility] mg/dL [facility] LABORATORY Comment: Supplemental ranges: <140 mg/dL before meals <180 mg/dL all other times of the day Specimen Anatomical Collection Method Collection Time Receive d Time (Source) Location / / Volume Laterality Blood specimen 07/08/2017 5:04 PM 017 5:04 (specimen) EST PM EST Yuan Webber MD POINT OF CARE TEST ORDERABLE S Performing Organization Address City/State/Z[place] [address] (ABNORMAL) BLOOD GAS 2 ARTERIAL (07/08/2017 4:13 PM EST) Analysis Performed At Patho logist Time Signature pH Art 7.38 7.35 - [facility] 7.45 [facility] LABORATORY pCO2 Art 36 35 - 45 [facility] mmHg [facility] LABORATORY pO2 Art 91 85 - 104 [facility] LABORATORY HCO3 Art 20.9 20.0 - [facility] 26.0 [facility] mmol/L [facility] LABORATORY BE Art -4.2 (L) -3.0 - 3.0 [facility] mmol/L [facility] LABORATORY Hgb Blood Gas 11.7 (L) 13.7 - [facility] 16.5 gm/dL [facility] LABORATORY O2HB Art 95.1 94.0 - [facility] 97.0 % [facility] LABORATORY COHB Art 0.6 % [facility] LAB[facility]ORY FIO2 Art 40 % [facility] LABORATORY PF Ratio Art 228 [facility] LABORATORY Specimen Anatomical Collection Method Collection Time Receive d Time (Source) Location / / Volume Laterality Blood specimen 07/08/2017 4:13 PM 017 4:13 (specimen) EST PM EST Yuan Webber MD CHEMISTRY ORDERABLES Performing Organization Address City/State/ZIP Code Phon e Number [address] POCT Glucose (07/08/2017 4:01 PM EST) P athologist Signature POC Glucose 148 65 - 199 [facility] mg/dL [facility] LABORATORY Comment: Supplemental ranges: <140 mg/dL before meals <180 mg/dL all other times of the day Specimen Anatomical Collection Method Collection Time Receive d Time (Source) Location / / Volume Laterality Blood specimen 07/08/2017 4:01 PM 017 4:01 (specimen) EST PM EST Yuan Webber MD POINT OF CARE TEST ORDERABLE S Performing Organization Address City/State/ZIP [place] [address] POCT Glucose (07/08/2017 3:21 PM EST) athologist Signature POC Glucose 118 65 - 199 [place] ZHA[place]AN mg/dL [facility] LABORATORY Comment: Supplemental ranges: <140 mg/dL before meals <180 mg/dL all other times of the day Specimen Anatomical Collection Method Collection Time Receive d Time (Source) Location / / Volume Laterality Blood specimen 07/08/2017 3:21 PM 017 3:21 (specimen) EST PM EST Yuan Webber MD POINT OF CARE TEST ORDERABLE S Performing Organization Address City/State/ZIP Code Phon e Number [address] POCT Glucose (07/08/2017 2:01 PM EST) athologist Signature POC Glucose 129 65 - 199 [place] mg/dL [facility] LABORATORY Comment: Supplemental ranges: <140 mg/dL before meals <180 mg/dL all other times of the day Specimen Anatomical Collection Method Collection Time Receive d Time (Source) Location / / Volume Laterality Blood specimen 07/08/2017 2:01 PM 017 2:01 (specimen) EST PM EST Yuan Webber MD POINT OF CARE TEST ORDERABLE S Performing Organization Address City/State/Z[place] [address] POCT Glucose (07/08/2017 11:53 AM EST) athologist Signature POC Glucose 156 65 - 199 [place]BARA ZHAORYAN mg/dL [facility] LABORATORY Comment: Supplemental ranges: <140 mg/dL before meals <180 mg/dL all other times of the day Specimen Anatomical Collection Method Collection Time Receive d Time (Source) Location / / Volume Laterality Blood specimen 07/08/2017 11:53 7 (specimen) AM EST 11:53 AM EST Yuan Webber MD POINT OF CARE TEST ORDERABLE S Performing Organization Address City/State/Z[place] [address] POCT Glucose (07/08/2017 11:04 AM EST) athologist Signature POC Glucose 181 65 - 199 [facility] mg[facility]dL [facility] LABORATORY Comment: Supplemental ranges: <140 mg/dL [...] [facility]/[place] [address] (ABNORMAL) POCT Glucose (07/08/2017 9:24 AM EST) athologist Signature POC Glucose 203 (H) 65 - 199 [facility] mg/dL [facility] LABORATORY Comment: Supplemental ranges: <140 mg/dL [...] [facility]/[place] [address] APTT (07/08/2017 8:40 AM EST) athologist Signature PTT 33 25 - 35 sec [facility] LABORATORY Comment: The recommended therapeutic range for fu ll dose, unfractionated heparin at [place] is 80 ? 114 seconds. The use [...] Organization Address City/State/[place] [address] (ABNORMAL) Prothrombin Time (07/08/2017 [...] Organization Address City/State/[place] [address] (ABNORMAL) POCT Glucose (07/08/2017 7:38 AM EST) athologist Signature POC Glucose 232 (H) 65 - 199 [facility]/dL [facility] LABORATORY Comment: Supplemental ranges: <140 mg/dL before meals <180 mg/dL all other times of the day Specimen Anatomical Collection Method Collection Time Receive d Time (Source) Location / / Volume Laterality Blood specimen 07/08/2017 7:38 AM 017 7:38 (specimen) EST AM EST Yuan Webber MD POINT OF CARE TEST ORDERABLE S Performing Organization Address City/State/ZIP Code Phon e Number [address] (ABNORMAL) POCT Glucose (07/08/2017 7:07 AM EST) athologist Signature POC Glucose 234 (H) 65 - 199 [facility] mg/dL [facility] LABORATORY Comment: Supplemental ranges: <140 mg/dL [...] [facility]/[place] [address] (ABNORMAL) POCT Glucose (07/08/2017 6:04 AM EST) P athologist Signature POC Glucose 225 (H) 65 - 199 BARBARA RYAN mg/dL [facility] LABORATORY Comment: Supplemental ranges: <140 mg/dL [...] [facility]/ZIP [place] [address] (ABNORMAL) POCT Glucose (07/08/2017 5:31 AM EST) P athologist Signature POC Glucose 216 (H) 65 - 199 BARBARA RYAN mg/dL [facility] LABORATORY Comment: Supplemental ranges: <140 mg/dL before meals <180 mg/dL all other times of the day Specimen Anatomical Collection Method Collection Time Receive d Time (Source) Location / / Volume Laterality Blood specimen 07/08/2017 5:31 AM 017 5:31 (specimen) EST AM EST Yuan Webber MD POINT OF CARE TEST ORDERABLE S Performing Organization Address City/State/ZIP Code Phon e Number [address] (ABNORMAL) POCT Glucose (07/08/2017 4:52 AM EST) P athologist Signature POC Glucose 257 (H) 65 - 199 [facility] R[facility] mg/dL [facility] LABORATORY Comment: Supplemental ranges: <140 mg/dL before meals <180 mg/dL all other times of the day Specimen Anatomical Collection Method Collection Time Receive d Time (Source) Location / / Volume Laterality Blood specimen 07/08/2017 4:52 AM 017 4:52 (specimen) EST AM EST Daphne Shahid MD POINT OF CARE TEST ORDERABLE S Performing Organization Address City/State/[place] [address] (ABNORMAL) BLOOD GAS 2 ARTERIAL (07/08/2017 4:04 AM EST) Analysis Performed At Patho logis Time Signature pH Art 7.30 (L) 7.35 - [facility] 7.45 [facility] LABORATORY pCO2 Art 41 35 - 45 [facility] LABORATORY pO2 Art 83 (L) 85 - 104 [facility] LABORATORY HCO3 Art 19.6 (L) 20.0 - [facility] 26.0 [facility] mmol/[facility] LABORATORY BE Art -6.8 (L) -3.0 - 3.0 [facility] mmol/L [facility] LABORATORY Hgb Blood Gas 12.2 (L) 13.7 - [facility] 16.5 gm/dL [facility] O2HB Art 93.5 (L) 94.0 - [facility] 97.0 % [facility] LABORATORY COHB Art 0.4 % [facility] [...] WB 4.4 (Critical) 0.5 - 2.2 mmol/L [facility] LABORATORY Comment: Noted by precision mechanical instrument maker. FIO2 Art 40 % [facility] LABORATORY PF Ratio Art 208 [facility] LABORATORY Specimen Anatomical Collection Method Collection Time Receive d Time (Source) Location / / Volume Laterality Blood specimen 07/08/2017 4:04 AM 017 4:04 (specimen) EST AM EST Daphne Shahid MD CHEMISTRY ORDERABLES Performing Organization Address City/[facility]/ZIP [place] [address] Scan, Peripheral Blood (07/08/2017 [...] Webber MD HEMATOLOGY ORDERABLES Performing Organization Address City/[facility]/ZIP [place] [address] (ABNORMAL) Differential, Automated (07/08/2017 4:00 AM EST) Patholo gist Method Time Signature Neutrophils % 85.4 % [facility] LABORATORY Neutr Abs (ANC) 16.07 (H) 1.70 - [facility] 6.10 [facility] x10(3)/[facility] L LABORATORY Lymphocytes % 3.5 % [facility] LABORATORY Lymphocytes Abs 0.6 (L) 0.9 - 3.2 [facility] x10(3)/[facility] LABORATORY Monocytes % 10.4 % [facility] LABORATORY Monocyte Abs 2.0 (H) 0.3 - 0.9 [facility] x10(3)/[facility] LABORATORY Eosinophils % 0.0 % [facility] LABORATORY Eosinophils Abs 0.0 0.0 - 0.4 [facility] x10(3)/[facility] LABORATORY Basophils % 0.1 % [facility] LABORATORY Basophils Abs 0.0 0.0 - 0.1 [facility] x10(3)/[facility] LABORATORY Immature Gran % 0.60 [...] Gran Abs 0.12 (H) 0.00 - 0.04 x10(3)/[facility] LABORATORY Specimen Anatomical Collection Method Collection Time Receive d Time (Source) Location / / Volume Laterality Blood specimen 07/08/2017 4:00 AM 017 4:09 (specimen) EST AM EST Resulting Agency Comment Spec In Lab Yuan Webber MD HEMATOLOGY ORDERABLES Performing Organization Address City/State/[place] [address] (ABNORMAL) Hemogram (07/08/2017 4:00 AM EST) Analysis Performed At Patho logist Time Signature WBC 18.8 (H) 4.0 - 9.5 [facility] x10(3)/[facility] LABORATORY RBC 4.00 (L) 4.58 - [facility] 5.54 [facility] x10(6)/[facility] LABORATORY Hemoglobin 11.9 (L) 13.7 - [facility] 16.5 gm/dL [facility] LABORATORY Hematocrit 35.9 (L) 40.5 - [facility] 48.5 % [facility] LABORATORY MCV 89.8 82.9 - [facility] 93.1 fL [facility] LABORATORY MCH 29.8 27.5 - [facility] 32.1 pg [facility] MCHC 33.1 32.0 - BARBARA DAVIS 35.7 gm/dL [facility] LABORATORY Platelets 232 145 - 357 [facility] x10(3)/[facility] LABORATORY RDWSD 47.6 (H) 36.0 - [facility] 45.0 [facility] LABORATORY RDWCV 14.5 (H) 11.4 - [facility] 13.8 % [facility] LABORATORY MPV 9.5 7.6 - 12.9 [facility] LABORATORY nRBC % Auto 0.0 % [facility] LABORATORY nRBC Abs Auto 0.000 0.000 - [facility] 0.000 [facility] x10(3)/[facility] LABORATORY Specimen Anatomical Collection Method Collection Time Receive d Time (Source) Location / / Volume Laterality Blood specimen 07/08/2017 4:00 AM 017 4:09 (specimen) EST AM EST Resulting Agency Comment Spec In Lab Yuan Webber MD HEMATOLOGY ORDERABLES Performing Organization Address City/State/[place] [address] (ABNORMAL) Electrolytes panel (07/08/2017 4:00 AM EST) P athologist Signature Sodium 139 135 - 145 [facility] mmol/L [facility] LABORATORY Potassium 4.7 3.5 - 5.0 [facility] mmol/L [facility] LABORATORY Comment: result rechecked-[id number] Please note: [...] Webber MD CHEMISTRY ORDERABLES Performing Organization Address City/[facility]/ZIP Code Phon e Number [address] (ABNORMAL) Cardiac Enzymes (LEB/CGP) (07/08/2017 4:00 AM EST) P athologist Signature Troponin-T 1.88 (H) 0.00 - [facility] 0.00 ng/mL [facility] LABORATORY Comment: The 99th percentile for [...] additional sample may be indicated. Reference: Third [place] Definition of Myocardial Infarction. Journal of the [...] Webber MD CHEMISTRY ORDERABLES Performing Organization Address City/[facility]/Z[place] [address] (ABNORMAL) Glucose, fasting (07/08/2017 4:00 AM EST) P athologist Signature Glucose 287 (H) 65 - 99 [facility] Fasting mg/dL [facility] LABORATORY Comment: ?Fasting* Glucose Interpretive C [...] Organization Address City/State/Z[place] [address] (ABNORMAL) Creatinine (07/08/2017 4:00 AM EST) Analysis Performed At Patho logist Time Signature Creatinine 1.55 (H) 0.80 - [facility] 1.50 mg/dL [facility] LABORATORY Estimated GFR 44 (L) >=60 [facility] LABORATORY Comment: The reported eGFR should be multiplied b y 1.2 for patients. The MDRD is not an appropriate measure o f renal function for patients with body mass extremes or in patients with acute kidney failure. http://[employer]ostang/DHnkdep http://[employer]/DHMCnkf Specimen Anatomical Collection Method Collection Time Receive d Time (Source) Location / / Volume Laterality Blood specimen 07/08/2017 4:00 AM 017 4:09 (specimen) EST AM EST Resulting Agency Comment Spec In Lab Yuan Webber MD CHEMISTRY ORDERABLES Performing Organization Address City/[facility]/ZIP Code Phon e Number [address] BUN (07/08/2017 4:00 AM EST) P athologist Signature BUN 16 10 - 20 [facility] mg/dL [facility] LABORATORY Specimen Anatomical Collection Method Collection Time Receive d Time (Source) Location / / Volume Laterality Blood specimen 07/08/2017 4:00 AM 017 4:09 (specimen) EST AM EST Resulting Agency Comment Spec In Lab Yuan Webber MD CHEMISTRY ORDERABLES Performing Organization Address [facility] Phon e Number [address] (ABNORMAL) POCT Glucose (07/08/2017 3:00 AM EST) athologist Signature POC Glucose 273 (H) 65 - 199 [facility] mg/dL [facility] LABORATORY Comment: Supplemental ranges: <140 mg/dL before meals <180 mg/dL all other times of the day Specimen Anatomical Collection Method Collection Time Receive d Time (Source) Location / / Volume Laterality Blood specimen 07/08/2017 3:00 AM 017 3:00 (specimen) EST AM EST Daphne Shahid MD POINT OF CARE TEST ORDERABLE S Performing Organization Address [facility]/Z[place] [address] (ABNORMAL) POCT Glucose (07/08/2017 1:57 AM EST) athologist Signature POC Glucose 288 (H) 65 - 199 [facility] RYAN mg/dL [facility] LABORATORY Comment: Supplemental ranges: <140 mg/dL before meals <180 mg/dL all other times of the day Specimen Anatomical Collection Method Collection Time Receive d Time (Source) Location / / Volume Laterality Blood specimen 07/08/2017 1:57 AM 017 1:57 (specimen) EST AM EST Daphne Shahid MD POINT OF CARE TEST ORDERABLE S Performing Organization Address City/State/Z[place] [address] (ABNORMAL) POCT Glucose (07/08/2017 1:01 AM EST) athologist Signature POC Glucose 315 (H) 65 - 199 [facility] mg/dL [facility] LABORATORY Comment: Supplemental ranges: <140 mg/dL before meals <180 mg/dL all other times of the day Specimen Anatomical Collection Method Collection Time Receive d Time (Source) Location / / Volume Laterality Blood specimen 07/08/2017 1:01 AM 017 1:01 (specimen) EST AM EST Daphne Shahid MD POINT OF CARE TEST ORDERABLE S Performing Organization Address City/State/Z[place] [address] (ABNORMAL) BLOOD GAS 2 ARTERIAL (07/08/2017 12:09 AM EST) athologist Signature pH Art 7.26 7.35 - [facility] (Critical) 7.45 [facility] LABORATORY Comment: Noted by precision mechanical instrument maker. pCO2 Art 41 35 - 45 mmHg [facility] LABORATORY pO2 Art 96 85 - [...] [facility] COHB Art 0.2 % [place] [...] WB 7.6 (Critical) 0.5 - 2.2 mmol/L [facility] Comment: Noted by precision mechanical instrument maker. FIO2 Art 40 % [facility] PF Ratio Art 240 [facility] Specimen Anatomical Collection Method Collection Time Receive d Time (Source) Location / / Volume Laterality Blood specimen Arterial Draw / 07/08/2017 12:09 2016 5:31 (specimen) Unknown AM EST AM EST Resulting Agency Comment Spec In Lab Samy Maldonado MD CHEMISTRY ORDERABLES Performing Organization Address City/State/[place] [address] (ABNORMAL) POCT Glucose (07/07/2017 10:56 PM EST) P athologist Signature POC Glucose 292 (H) 65 - 199 [facility] mg/dL [facility] Comment: Supplemental ranges: <140 mg/dL before meals <180 mg/dL all other times of the day Specimen Anatomical Collection Method Collection Time Receive d Time (Source) Location / / Volume Laterality Blood specimen 07/07/2017 10:56 7 (specimen) PM EST 10:56 PM EST Daphne Shahid MD POINT OF CARE TEST ORDERABLE S Performing Organization Address City/State/[place] [address] (ABNORMAL) BLOOD GAS 2 ARTERIAL (07/07/2017 10:04 PM EST) athologist Signature pH Art 7.22 7.35 - [facility] (Critical) 7.45 [facility] Comment: Noted by precision mechanical instrument maker. pCO2 Art 42 35 - 45 mmHg [facility] pO2 Art 94 85 - [facility] COHB Art 0.7 % [place] [...] WB 8.2 (Critical) 0.5 - 2.2 mmol/L [facility] Comment: Noted by precision mechanical instrument maker. FIO2 Art 40 % [facility] PF Ratio Art 235 [facility] Specimen Anatomical Collection Method Collection Time Receive d Time (Source) Location / / Volume Laterality Blood specimen 07/07/2017 10:04 7 (specimen) PM EST 10:04 PM EST Daphne Shahid MD CHEMISTRY ORDERABLES Performing Organization Address City/[facility]/[place]IP [place] [address] (ABNORMAL) Hemoglobin (07/07/2017 10:00 PM EST) athologist Signature Hemoglobin 12.8 (L) 13.7 - [facility] 16.5 gm/dL [facility] Specimen Anatomical Collection Method Collection Time Receive d Time (Source) Location / / Volume Laterality Blood specimen 07/07/2017 10:00 7 (specimen) PM EST 10:13 PM EST Resulting Agency Comment Spec In Lab Yuan Webber MD HEMATOLOGY ORDERABLES Performing Organization Address City/[facility]/[place]IP [place] [address] (ABNORMAL) Potassium (07/07/2017 10:00 PM EST) athologist Signature Potassium 3.4 (L) 3.5 - 5.0 [facility] mmol/L [facility] Comment: Please note: ??Patients with [...] Webber MD CHEMISTRY ORDERABLES Performing Organization Address City/[facility]/[place] [address] (ABNORMAL) POCT Glucose (07/07/2017 8:49 PM EST) P athologist Signature POC Glucose 241 (H) 65 - 199 [facility] mg/dL [facility] Comment: Supplemental ranges: <140 mg/dL [...] [facility]/[place]IP [place] [address] Prepare Albumin 5% in 250 mL (07/07/2017 8:03 PM EST) athologist Signature Dispensed? Yes [facility] Specimen Anatomical Collection Method Collection Time Receive d Time (Source) Location / / Volume Laterality Blood specimen No Charge / 07/07/2017 8:03 PM 017 8:04 (specimen) Unknown EST PM EST Resulting Agency Comment Spec In Lab Michael BROWN BLOOD BANK ORDERABLES Performing Organization Address City/[facility]/[place] [address] EKG 12 Lead (07/07/2017 7:17 PM EST) Component Value Ref Range Test Analysis Performed Pathologis t Method Time At Signature Ventricular rate 75 BPM MUSE SYSTEM Atrial Rate 75 BPM MUSE SYSTEM P-R Interval 168 ms MUSE SYSTEM QRS Duration 104 ms MUSE SYSTEM Q-T Interval 462 ms MUSE SYSTEM QTC Calculated 515 ms MUSE SYSTEM (Bezet) Calculated P [place] 52 degrees MUSE SYSTEM Calculated R [place] -40 degrees MUSE SYSTEM Calculated T [place] 39 degrees MUSE SYSTEM INTERPRETATION Normal sinus [...] Organization Address City/State/ZIP Code Phon e Number [employer] XR Chest PA or AP 1 [...] athologist Signature pH Art 7.21 7.35 - [facility] (Critical) 7.45 [facility] Comment: Noted by precision mechanical instrument maker. pCO2 Art 50 (H) 35 - 45 mmHg [facility] pO2 Art 238 (H) 85 [facility] COHB Art 0.5 % [place] [...] Blood 3.0 (Critical) 3.5 - 5.0 mmol/L [facility] Comment: Noted by precision mechanical instrument maker. Please note: Patients with WBC >100,000 may [...] WB 4.9 (Critical) 0.5 - 2.2 mmol/L [facility] Comment: Noted by precision mechanical instrument maker. FIO2 Art 100 % [facility] PF Ratio Art 238 [facility] Specimen Anatomical Collection Method Collection Time Receive d Time (Source) Location / / Volume Laterality Blood specimen 07/07/2017 6:57 PM 017 6:57 (specimen) EST PM EST Daphne Shahid MD CHEMISTRY ORDERABLES Performing Organization Address City/State/[place] [address] (ABNORMAL) BLOOD GAS 2 ARTERIAL (07/07/2017 5:31 PM EST) athologist Signature pH Art 7.29 7.35 - [facility] (Critical) 7.45 [facility] Comment: Noted by precision mechanical instrument maker. pCO2 Art 48 (H) 35 - 45 mmHg [facility] pO2 Art 137 (H) 85 [...] [facility] COHB Art 0.3 % WH[facility] [...] Shahid MD CHEMISTRY ORDERABLES Performing Organization Address City/[facility] [place] [address] Fibrinogen (07/07/2017 5:30 PM EST) athologist Signature Fibrinogen 224 180 - 510 [facility] mg/dL [facility] Comment: Called by: JEET, Read [...] Perez MD HEMATOLOGY ORDERABLES Performing Organization Address City/[facility]/ZIP [facility] [place] [address] APTT (07/07/2017 5:30 PM EST) athologist Signature PTT 30 25 - 35 sec [facility] Comment: The recommended therapeutic range for fu ll dose, unfractionated heparin at [place] is 80 ? 114 seconds. The use [...] Perez MD HEMATOLOGY ORDERABLES Performing Organization Address [facility]/ZIP [facility] [place] [address] (ABNORMAL) Prothrombin Time (07/07/2017 [...] Perez MD HEMATOLOGY ORDERABLES Performing Organization Address City/[facility] [place] [address] (ABNORMAL) Hemogram (07/07/2017 5:30 PM EST) P athologist Signature WBC 19.6 (H) 4.0 - 9.5 [facility] x[facility](3[facility] RBC 3.08 (L) 4.58 - [facility] 5.54 [facility] x10(6)/[facility]ATORY Hemoglobin 9.2 (L) 13.7 - [facility] 16.5 gm/dL [facility] Hematocrit 28.0 (L) 40.5 - [facility] R[facility] 48.5 % [facility] Comment: This result has been called to MONICA MORAN by DONALD GROSSMAN on 07 07 2017 at 1759, and has been read back. MCV 90.9 82.9 - 93.1 fL [facility] MCH 29.9 27.5 - 32.1 pg [facility] MCHC 32.9 32.0 - 35.7 gm/dL [facility] Platelets 155 145 - 357 x10(3)/mcL [facility] RDWSD 46.5 (H) 36.0 - 45.0 [facility] LABORATORY RDWCV 14.1 (H) 11.4 - 13.8 % [facility] MPV 9.5 7.6 - 12.9 [facility] LABORATORY nRBC % Auto 0.0 % [facility] nRBC Abs Auto 0.000 0.000 - 0.000 x10(3)/[facility] LABORATORY Specimen Anatomical Collection Method Collection Time Receive d Time (Source) Location / / Volume Laterality Blood specimen 07/07/2017 5:30 PM 017 5:34 (specimen) EST PM EST Resulting Agency Comment Spec In Lab Yifan Perez MD HEMATOLOGY ORDERABLES Performing Organization Address City/[facility]/ZIP [place] [address] Prepare Platelets, Apheresis (07/07/2017 5:00 PM EST) P athologist Signature Dispensed? Yes [facility] Specimen Anatomical Collection Method Collection Time Receive d Time (Source) Location / / Volume Laterality Blood specimen 07/07/2017 5:00 PM 017 4:58 (specimen) EST PM EST Daphne Shahid MD BLOOD BANK ORDERABLES Performing Organization Address City/[facility]/ZIP Code Phon e Number [address] Platelet count (07/07/2017 4:55 PM EST) P athologist Signature Platelets 177 145 - 357 [facility] x10(3)/[facility] LABORATORY Plat Immature 1.5 0.0 - 7.4 [facility] % % [facility] Comment: Limitation of the Immature Platelet Frac tion (IPF)-May be less reliable when the platelet count is less than 31l705/u L due to statistical imprecision. The IPF [...] in a decreased state of production. References: [employer] The Clinical Value of the Immature Platelet Fraction (IPF) in Cell Recovery Document Number 10-1143 12/2010 [employer] The Role of the Imm [...] Organization Address City/State/[place] [address] (ABNORMAL) Hemoglobin and Hematocrit, blood (07/07/2017 4:55 PM EST) P athologist Signature Hemoglobin 9.1 (L) 13.7 - 16.5 [facility] gm/dL [facility] Comment: This result has been [...] Organization Address City/State/[place] [address] (ABNORMAL) BLOOD GAS 2 ARTERIAL (07/07/2017 4:38 PM EST) Analysis Performed At Patho logist Time Signature pH Art 7.37 7.35 - [facility] 7.45 [facility] pCO2 Art 44 35 - 45 [facility]ATORY pO2 Art 322 (H) 85 - 104 [facility] HCO3 Art 24.9 20.0 - [facility] 26.0 [facility] mmol/L [facility] BE Art -0.4 -3.0 - 3.0 [facility] mmol/L [facility] Hgb Blood Gas 10.1 (L) 13.7 - [facility] 16.5 gm/dL [facility] O2HB Art 98.7 (H) 94.0 - [facility] 97.0 % [facility] COHB Art 0.1 % [facility] [...] mmol/L [facility] Comment: Noted by precision mechanical instrument maker. Note: ??Total bilirubin higher than 20 m [...] Organization Address City/State/[place] [address] (ABNORMAL) BLOOD GAS 2 VENOUS (07/07/2017 4:06 PM EST) Analysis Performed At Patho logist Time Signature pH Cody 7.31 (L) 7.32 - [facility] 7.42 [facility] pCO2 [place] 47 41 - 51 [facility] LABORATORY pO2 [place] 53 (H) 25 - 40 [facility]ORY HCO3 [place] 22.7 mmol/L [facility] BE Cody -3.7 mmol/L [facility] Hgb Blood Gas 10.2 (L) 13.7 - [facility] 16.5 gm/dL [facility] O2HB [place] 81.0 % [facility] [...] mmol/L [facility] Comment: Noted by precision mechanical instrument maker. Note: ??Total bilirubin higher than 20 m [...] PM 017 4:06 (specimen) EST PM EST Dapnhe Shahid MD CHEMISTRY ORDERABLES Performing Organization Address City/State/[place] [address] (ABNORMAL) BLOOD GAS 2 ARTERIAL (07/07/2017 4:05 PM EST) Analysis Performed At Patho logist Time Signature pH Art 7.36 7.35 - [facility] 7.45 [facility] pCO2 Art 40 35 - 45 [facility]ORY pO2 Art 282 (H) 85 - 104 [facility] HCO3 Art 22.1 20.0 - [facility] 26.0 [facility] mmol/L [facility] BE Art -3.4 (L) -3.0 - 3.0 [facility] mmol/L [facility] Hgb Blood Gas 10.2 (L) 13.7 - [facility] 16.5 gm/dL [facility] O2HB Art 98.4 (H) 94.0 - [facility] 97.0 % [facility] COHB Art 0.3 % [facility] [...] mmol/L [facility] Comment: Noted by precision mechanical instrument maker. Note: ??Total bilirubin higher than 20 m [...] PM 017 4:05 (specimen) EST PM EST Dahpne Shahid MD CHEMISTRY ORDERABLES Performing Organization Address City/State/[place] [address] (ABNORMAL) BLOOD GAS 2 ARTERIAL (07/07/2017 2:29 PM EST) Analysis Performed At Patho logist Time Signature pH Art 7.43 7.35 - [facility] 7.45 [facility] pCO2 Art 36 35 - 45 [facility]ATORY pO2 Art 221 (H) 85 - 104 [facility]ORY HCO3 Art 23.2 20.0 - [facility] 26.0 [facility] mmol/L [facility] BE Art -1.2 -3.0 - 3.0 [facility] mmol/L [facility] Hgb Blood Gas 13.9 13.7 - [facility] 16.5 gm/dL [facility] O2HB Art 97.8 (H) 94.0 - [facility] 97.0 % [facility] COHB Art 1.1 % [facility] [...] Organization Address City/State/[place] [address] Prepare Coag Factors (Non-Hemophilia) (07/07/2017 1:25 PM EST) P athologist Signature Dispensed? Yes [facility] Specimen Anatomical Collection Method Collection Time Receive d Time (Source) Location / / Volume Laterality Blood specimen 07/07/2017 1:25 PM 017 1:21 (specimen) EST PM EST Daphne Shahid MD BLOOD BANK ORDERABLES Performing Organization Address City/State/Z[place] [address] Prepare RBC (07/07/2017 1:10 PM EST) P athologist Signature Dispensed? Yes [facility] Specimen Anatomical Collection Method Collection Time Receive d Time (Source) Location / / Volume Laterality Blood specimen 07/07/2017 1:10 PM 017 1:05 (specimen) EST PM EST Daphne Shahid MD BLOOD BANK ORDERABLES Performing Organization Address City/State/ZIP [place] [address] POCT Glucose (07/07/2017 11:56 AM EST) athologist Signature POC Glucose 188 65 - 199 [facility]/dL [facility] Comment: Supplemental ranges: <140 mg/dL before meals <180 mg/dL all other times of the day Specimen Anatomical Collection Method Collection Time Receive d Time (Source) Location / / Volume Laterality Blood specimen 07/07/2017 11:56 7 (specimen) AM EST 11:56 AM EST Daphne Shahid MD POINT OF CARE TEST ORDERABLE S Performing Organization Address City/State/ZIP Code Phon e Number [address] POCT Glucose (07/07/2017 11:05 AM EST) athologist Signature POC Glucose 168 65 - 199 [facility] mg/dL [facility] Comment: Supplemental ranges: <140 mg/dL before meals <180 mg/dL all other times of the day Specimen Anatomical Collection Method Collection Time Receive d Time (Source) Location / / Volume Laterality Blood specimen 07/07/2017 11:05 7 (specimen) AM EST 11:05 AM EST Daphne Shahid MD POINT OF CARE TEST ORDERABLE S Performing Organization Address City/State/ZIP Code Phon e Number [address] POCT Glucose (07/07/2017 10:02 AM EST) athologist Signature POC Glucose 191 65 - 199 [facility]/dL [facility] Comment: Supplemental ranges: <140 mg/dL before meals <180 mg/dL all other times of the day Specimen Anatomical Collection Method Collection Time Receive d Time (Source) Location / / Volume Laterality Blood specimen 07/07/2017 10:02 7 (specimen) AM EST 10:02 AM EST Daphne Shahid MD POINT OF CARE TEST ORDERABLE S Performing Organization Address City/State/Z[place] [address] POCT Glucose (07/07/2017 7:53 AM EST) athologist Signature POC Glucose 178 65 - 199 [facility] mg/dL [facility] Comment: Supplemental ranges: <140 mg/dL before meals <180 mg/dL all other times of the day Specimen Anatomical Collection Method Collection Time Receive d Time (Source) Location / / Volume Laterality Blood specimen 07/07/2017 7:53 AM 017 7:53 (specimen) EST AM EST Daphne Shahid MD POINT OF CARE TEST ORDERABLE S Performing Organization Address City/State/Z[place] [address] POCT Glucose (07/07/2017 7:03 AM EST) athologist Signature POC Glucose 188 65 - 199 [facility]/dL [facility] Comment: Supplemental ranges: <140 mg/dL before meals <180 mg/dL all other times of the day Specimen Anatomical Collection Method Collection Time Receive d Time (Source) Location / / Volume Laterality Blood specimen 07/07/2017 7:03 AM 017 7:03 (specimen) EST AM EST Daphne Shahid MD POINT OF CARE TEST ORDERABLE S Performing Organization Address City/State/ZIP Code Phon e Number [address] (ABNORMAL) POCT Glucose (07/07/2017 6:17 AM EST) athologist Signature POC Glucose 207 (H) 65 - 199 [facility] mg/dL [facility] Comment: Supplemental ranges: <140 mg/dL before meals <180 mg/dL all other times of the day Specimen Anatomical Collection Method Collection Time Receive d Time (Source) Location / / Volume Laterality Blood specimen 07/07/2017 6:17 AM 017 6:17 (specimen) EST AM EST Daphne Shahid MD POINT OF CARE TEST ORDERABLE S Performing Organization Address City/State/ZIP Code Phon e Number [place] [id number] Differential, Automated (07/07/2017 5:15 AM EST) P athologist Signature Neutrophils % 69.7 % [facility] Neutr Abs (ANC) 5.32 1.70 - [facility] 6.10 [facility] x10(3)[facility] LABORATORY Lymphocytes % 16.3 % [facility] Lymphocytes Abs 1.2 0.9 - 3.2 [facility] x10(3)/[facility] LABORATORY Monocytes % 10.5 % [facility] Monocyte Abs 0.8 0.3 - 0.9 [facility] x10(3)/[facility] LABORATORY Eosinophils % 2.5 % [facility] Eosinophils Abs 0.2 0.0 - 0.4 [facility] x10(3)/[facility] LABORATORY Basophils % 0.7 % [facility] Basophils Abs 0.0 0.0 - 0.1 [facility] x10(3)/[facility] LABORATORY Immature Gran % 0.30 [...] Melisa Gran Abs 0.02 0.00 - 0.04 x10(3)/[facility]ORY Specimen Anatomical Collection Method Collection Time Receive d Time (Source) Location / / Volume Laterality Blood specimen 07/07/2017 5:15 AM 017 5:34 (specimen) EST AM EST Resulting Agency Comment Spec In Lab Daphne Shahid MD HEMATOLOGY ORDERABLES Performing Organization Address City/State/Z[place] [address] (ABNORMAL) Hemogram (07/07/2017 5:15 AM EST) Analysis Performed At Patho logist Time Signature WBC 7.6 4.0 - 9.5 [facility] LABORATORY RBC 4.82 4.58 - [facility] 5.54 [facility] x10(6)/[facility] LABORATORY Hemoglobin 14.4 13.7 - [facility] 16.5 gm/dL [facility] Hematocrit 42.1 40.5 - [facility] 48.5 % [facility] MCV 87.3 82.9 - [facility] 93.1 [facility] LABORATORY MCH 29.9 27.5 - [facility] 32.1 pg [facility] MCHC 34.2 32.0 - [facility] 35.7 gm/dL [facility] Platelets 188 145 - 357 [facility] x10(3)/[facility] LABORATORY RDWSD 45.1 (H) 36.0 - [facility] 45.0 [facility] LABORATORY RDWCV 14.3 (H) 11.4 - [facility] 13.8 % [facility]ORY MPV 9.4 7.6 - 12.9 [facility] LABORATORY nRBC % Auto 0.0 % [facility] nRBC Abs Auto 0.000 0.000 - [facility] 0.000 [facility] x10(3)/[facility] LABORATORY Specimen Anatomical Collection Method Collection Time Receive d Time (Source) Location / / Volume Laterality Blood specimen 07/07/2017 5:15 AM 017 5:34 (specimen) EST AM EST Resulting Agency Comment Spec In Lab Daphne Shahid MD HEMATOLOGY ORDERABLES Performing Organization Address City/State/Z[place] [address] (ABNORMAL) APTT (07/07/2017 5:15 AM EST) P athologist Signature PTT 69 (H) 25 - 35 sec [facility] Comment: The recommended therapeutic range for fu ll dose, unfractionated heparin at [place] is 80 ? 114 seconds. The use [...] Shahid MD HEMATOLOGY ORDERABLES Performing Organization Address City/[facility]/ZIP Code Phon e Number [address] Magnesium (07/07/2017 5:15 AM EST) athologist Signature Magnesium 0.94 0.69 - 1.07 [facility] mmol/L [facility] Specimen Anatomical Collection Method Collection Time Receive d Time (Source) Location / / Volume Laterality Blood specimen 07/07/2017 5:15 AM 017 5:34 (specimen) EST AM EST Resulting Agency Comment Spec In Lab Daphne Shahid MD CHEMISTRY ORDERABLES Performing Organization Address City/[facility] Code Phon e Number [address] (ABNORMAL) Basic Metabolic Panel (non-fasting) (07/07/2017 5:15 AM EST) athologist Signature Glucose Lvl 203 (H) 65 - 199 [facility] mg/dL [facility] Comment: Diabetes: >=200 mg/dL plus [...] [facility] Estimated GFR >60 >=60 [facility] Comment: The reported eGFR should be multiplied b y 1.2 for patients. The MDRD is not an appropriate measure o f renal function for patients with body mass extremes or in patients with acute kidney failure. http://[employer]App/DHnkdep http://[employer]App/DHMCnkf Specimen Anatomical Collection Method Collection Time Receive d Time (Source) Location / / Volume Laterality Blood specimen 07/07/2017 5:15 AM 017 5:34 (specimen) EST AM EST Resulting Agency Comment Spec In Lab Daphne Shahid MD CHEMISTRY ORDERABLES Performing Organization Address City/State/[place] [address] (ABNORMAL) Cardiac Enzymes (LEB/CGP) (07/07/2017 5:15 AM EST) P athologist Signature Troponin-T 2.07 (H) 0.00 - [facility] 0.00 ng/mL [facility]OR[facility]ORY Comment: The 99th percentile for [...] additional sample may be indicated. Reference: Third [place] Definition of Myocardial Infarction. Journal of the [employer] 2012;60:1581-98 CK, Total 88 0 - 200 unit/L [facility] Specimen Anatomical Collection Method Collection Time Receive d Time (Source) Location / / Volume Laterality Blood specimen 07/07/2017 5:15 AM 017 5:34 (specimen) EST AM EST Resulting Agency Comment Spec In Lab Daphne Shahid MD CHEMISTRY ORDERABLES Performing Organization Address City/[facility]/ZIP [facility] Phon e Number [address] POCT Glucose (07/07/2017 5:01 AM EST) athologist Signature POC Glucose 182 65 - 199 [facility] mg/dL [facility] Comment: Supplemental ranges: <140 mg/dL before meals <180 mg/dL all other times of the day Specimen Anatomical Collection Method Collection Time Receive d Time (Source) Location / / Volume Laterality Blood specimen 07/07/2017 5:01 AM 017 5:01 (specimen) EST AM EST Daphne Shahid MD POINT OF CARE TEST ORDERABLE S Performing Organization Address City/[facility]/ZIP [facility] Phon e Number [address] POCT Glucose (07/07/2017 4:08 AM EST) athologist Signature POC Glucose 199 65 - 199 [facility]dL [facility] Comment: Supplemental ranges: <140 mg/dL [...] [facility]/[place] [address] POCT Glucose (07/07/2017 3:03 AM EST) P athologist Signature POC Glucose 188 65 - 199 [facility]/dL [facility] Comment: Supplemental ranges: <140 mg/dL [...] [facility]/[place] [address] (ABNORMAL) POCT Glucose (07/07/2017 2:08 AM EST) athologist Signature POC Glucose 200 (H) 65 - 199 [facility] mg/dL [facility] Comment: Supplemental ranges: <140 mg/dL before meals <180 mg/dL all other times of the day Specimen Anatomical Collection Method Collection Time Receive d Time (Source) Location / / Volume Laterality Blood specimen 07/07/2017 2:08 AM 017 2:08 (specimen) EST AM EST Daphne Shahid MD POINT OF CARE TEST ORDERABLE S Performing Organization Address City/State/[place] [address] (ABNORMAL) POCT Glucose (07/07/2017 1:31 AM EST) P athologist Signature POC Glucose 209 (H) 65 - 199 [facility] mg/dL [facility] Comment: Supplemental ranges: <140 mg/dL before meals <180 mg/dL all other times of the day Specimen Anatomical Collection Method Collection Time Receive d Time (Source) Location / / Volume Laterality Blood specimen 07/07/2017 1:31 AM 017 1:31 (specimen) EST AM EST Daphne Shahid MD POINT OF CARE TEST ORDERABLE S Performing Organization Address City/State/ZIP Code Phon e Number [place] [phone] XR Chest [place] or [...] Signature POC Glucose 161 65 - 199 [facility] mg/dL [facility] Comment: Supplemental ranges: <140 mg/dL before meals <180 mg/dL all other times of the day Specimen Anatomical Collection Method Collection Time Receive d Time (Source) Location / / Volume Laterality Blood specimen 07/07/2017 12:07 7 (specimen) AM EST 12:07 AM EST Daphne Shahid MD POINT OF CARE TEST ORDERABLE S Performing Organization Address City/State/[place] [address] (ABNORMAL) APTT (07/07/2017 12:00 AM EST) athologist Signature PTT 103 (H) 25 - 35 sec [facility] Comment: The recommended therapeutic range for fu ll dose, unfractionated heparin at [place] is 80 ? 114 seconds. The use [...] Shahid MD HEMATOLOGY ORDERABLES Performing Organization Address [facility]/ZIP [place] [address] POCT Glucose (07/06/2017 9:55 PM EST) athologist Signature POC Glucose 109 65 - 199 [facility]/dL [facility] Comment: Supplemental ranges: <140 mg/dL [...] [facility]/ZIP Code Phon e Number [address] POCT Glucose (07/06/2017 9:04 PM EST) athologist Signature POC Glucose 120 65 - 199 [facility]dL [facility] Comment: Supplemental ranges: <140 mg/dL [...] [facility]/[place] [address] POCT Glucose (07/06/2017 7:45 PM EST) athologist Signature POC Glucose 158 65 - 199 [facility]/dL [facility] Comment: Supplemental ranges: <140 mg/dL [...] [facility]/[place] [address] Potassium (07/06/2017 7:40 PM EST) athologist [facility] Potassium 3.9 3.5 - 5.0 [facility] mmol/L [facility] Comment: Please note: ??Patients with [...] Shahid MD CHEMISTRY ORDERABLES Performing Organization Address City/[facility]/[place]IP [place] [address] (ABNORMAL) Cardiac Enzymes (LEB/CGP) (07/06/2017 7:40 PM EST) athologist Signature Troponin-T 2.27 (H) 0.00 - [facility] ng/mL [facility] Comment: The 99th percentile for [...] additional sample may be indicated. Reference: Third [place] Definition of Myocardial Infarction. Journal of the [employer] 2012;60:1581-98 CK, Total 93 0 - 200 unit/L [facility] Specimen Anatomical Collection Method Collection Time Receive d Time (Source) Location / / Volume Laterality Blood specimen 07/06/2017 7:40 PM 017 7:52 (specimen) EST PM EST Resulting Agency Comment Spec In Lab Daphne Shahid MD CHEMISTRY ORDERABLES Performing Organization Address City/[facility]/[place] [address] (ABNORMAL) POCT Glucose (07/06/2017 7:13 PM EST) P athologist Signature POC Glucose 200 (H) 65 - 199 [facility] mg/dL [facility] Comment: Supplemental ranges: <140 mg/dL before meals <180 mg/dL all other times of the day Specimen Anatomical Collection Method Collection Time Receive d Time (Source) Location / / Volume Laterality Blood specimen 07/06/2017 7:13 PM 017 7:13 (specimen) EST PM EST Daphne Shahid MD POINT OF CARE TEST ORDERABLE S Performing Organization Address City/State/ZIP [place] [address] (ABNORMAL) APTT (07/06/2017 6:15 PM EST) athologist Signature PTT 94 (H) 25 - 35 sec [facility] Comment: The recommended therapeutic range for fu ll dose, unfractionated heparin at [place] is 80 ? 114 seconds. The use [...] Shahid MD HEMATOLOGY ORDERABLES Performing Organization Address City/[facility]/[place]IP [place] [address] (ABNORMAL) POCT Glucose (07/06/2017 6:03 PM EST) athologist Signature POC Glucose 236 (H) 65 - 199 [facility]/dL [facility] Comment: Supplemental ranges: <140 mg/dL before meals <180 mg/dL all other times of the day Specimen Anatomical Collection Method Collection Time Receive d Time (Source) Location / / Volume Laterality Blood specimen 07/06/2017 6:03 PM 017 6:03 (specimen) EST PM EST Daphne Shahid MD POINT OF CARE TEST ORDERABLE S Performing Organization Address City/State/[place] [address] (ABNORMAL) POCT Glucose (07/06/2017 5:01 PM EST) athologist Signature POC Glucose 235 (H) 65 - 199 [facility]/dL [facility] Comment: Supplemental ranges: <140 mg/dL [...] [facility]/ZIP Code Phon e Number [address] (ABNORMAL) POCT Glucose (07/06/2017 4:06 PM EST) athologist Signature POC Glucose 202 (H) 65 - 199 [facility]/dL [facility] Comment: Supplemental ranges: <140 mg/dL [...] [facility]/[place] [address] POCT Glucose (07/06/2017 2:59 PM EST) athologist Signature POC Glucose 178 65 - 199 [facility]/dL [facility] Comment: Supplemental ranges: <140 mg/dL [...] [facility]/[place] [address] (ABNORMAL) Cardiac Enzymes (LEB/CGP) (07/06/2017 2:10 PM EST) athologist Signature Troponin-T 2.34 (H) 0.00 - [facility] 0.00 ng/mL [facility] Comment: The 99th percentile for [...] additional sample may be indicated. Reference: Third [place] Definition of Myocardial Infarction. Journal of the [place] [employer] 2012;60:1581-98 CK, Total 101 0 - 200 unit/L [facility] Specimen Anatomical Collection Method Collection Time Receive d Time (Source) Location / / Volume Laterality Blood specimen 07/06/2017 2:10 PM 017 2:26 (specimen) EST PM EST Resulting Agency Comment Spec In Lab Daphne Shahid MD CHEMISTRY ORDERABLES Performing Organization Address City/[facility]/ZIP Code Phon e Number [address] POCT Glucose (07/06/2017 2:08 PM EST) P athologist Signature POC Glucose 192 65 - 199 [facility] mg/dL [facility] Comment: Supplemental ranges: <140 mg/dL [...] [facility]/[place] [address] POCT Glucose (07/06/2017 1:04 PM EST) athologist Signature POC Glucose 162 65 - 199 [facility]/dL [facility] Comment: Supplemental ranges: <140 mg/dL before meals <180 mg/dL all other times of the day Specimen Anatomical Collection Method Collection Time Receive d Time (Source) Location / / Volume Laterality Blood specimen 07/06/2017 1:04 PM 017 1:04 (specimen) EST PM EST Daphne Shahid MD POINT OF CARE TEST ORDERABLE S Performing Organization Address City/State/ZIP Code Phon e Number [address] POCT Glucose (07/06/2017 12:05 PM EST) athologist Signature POC Glucose 196 65 - 199 [facility] Comment: Supplemental ranges: <140 mg/dL before meals <180 mg/dL all other times of the day Specimen Anatomical Collection Method Collection Time Receive d Time (Source) Location / / Volume Laterality Blood specimen 07/06/2017 12:05 7 (specimen) PM EST 12:05 PM EST Daphne Shahid MD POINT OF CARE TEST ORDERABLE S Performing Organization Address City/State/ZIP Code Phon e Number [address] EKG 12 Lead (07/06/2017 12:00 PM EST) Component Value Ref Range Test Analysis Performed Pathologis t Method Time At Signature Ventricular rate 91 BPM MUSE SYSTEM Atrial Rate 91 BPM MUSE SYSTEM P-R Interval 140 ms MUSE SYSTEM QRS Duration 94 ms MUSE SYSTEM Q-T Interval 394 ms MUSE SYSTEM QTC Calculated 484 ms MUSE SYSTEM (Bezet) Calculated P [place] 36 degrees MUSE SYSTEM Calculated R [place] -19 degrees MUSE SYSTEM Calculated T [place] 104 degrees MUSE SYSTEM INTERPRETATION Normal sinus rhythm MUSE SYSTEM 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) ST & T wave abnormality, consider lateral ischemia Abnormal ECG When compared with ECG of 05-JUL-2017 20:39, No significant change was found Confirmed by MD Verma Gregory A. ([id number]) on 07/06/2017 5:07:33 PM Specimen Anatomical Collection Method Collection Time Receive d Time (Source) Location / / Volume Laterality 07/06/2017 12:00 07/06/2017 5:07 PM EST PM EST Daphne Shahid MD ECG ORDERABLES Performing Organization Address City/State/ZIP Code Phon e Number MUSE SYSTEM ABORH Recheck Status (07/06/2017 12:00 PM EST) [facility] Method Time Signature ABORH Type Completed [facility] LABORATORY Specimen Anatomical Collection Method Collection Time Receive d Time (Source) Location / / Volume Laterality Blood specimen 07/06/2017 12:00 7 (specimen) PM EST 12:24 PM EST Resulting Agency Comment Spec In Lab Daphne Shahid MD BLOOD BANK ORDERABLES Performing Organization Address City/[facility]/ZIP Code Phon e Number [address] Antibody screen (07/06/2017 12:00 PM EST) [facility] Method Time Signature Ab Screen Negative [facility] LABORATORY Expires at 07/09/2017 [place] [id number] on: [facility]ORY Specimen Anatomical Collection Method Collection Time Receive d Time (Source) Location / / Volume Laterality Blood specimen 07/06/2017 12:00 7 (specimen) PM EST 12:24 PM EST Resulting Agency Comment Spec In Lab Daphne Shahid MD BLOOD BANK ORDERABLES Performing Organization Address City/[facility]/ZIP [place] [address] ABO/Rh Typing (07/06/2017 12:00 [...] Organization Address City/State/[place] [address] Prothrombin Time (07/06/2017 11:24 [...] Shahid MD HEMATOLOGY ORDERABLES Performing Organization Address City/[facility]/ZIP Code Phon e Number [address] (ABNORMAL) APTT (07/06/2017 11:24 AM EST) athologist Signature PTT 52 (H) 25 - 35 sec [facility] Comment: The recommended therapeutic range for fu ll dose, unfractionated heparin at [place] is 80 ? 114 seconds. The use [...] Shahid MD HEMATOLOGY ORDERABLES Performing Organization Address City/[facility]/[place] [address] POCT Glucose (07/06/2017 11:02 AM EST) athologist Signature POC Glucose 187 65 - 199 [facility] mg/dL [facility] Comment: Supplemental ranges: <140 mg/dL before meals <180 mg/dL all other times of the day Specimen Anatomical Collection Method Collection Time Receive d Time (Source) Location / / Volume Laterality Blood specimen 07/06/2017 11:02 7 (specimen) AM EST 11:02 AM EST Daphne Shahid MD POINT OF CARE TEST ORDERABLE S Performing Organization Address City/State/Z[place] [address] POCT Glucose (07/06/2017 10:18 AM EST) athologist Signature POC Glucose 193 65 - 199 [facility] mg/dL [facility] Comment: Supplemental ranges: <140 mg/dL before meals <180 mg/dL all other times of the day Specimen Anatomical Collection Method Collection Time Receive d Time (Source) Location / / Volume Laterality Blood specimen 07/06/2017 10:18 7 (specimen) AM EST 10:18 AM EST Daphne Shahid MD POINT OF CARE TEST ORDERABLE S Performing Organization Address City/State/[place] [address] POCT Glucose (07/06/2017 9:25 AM EST) athologist Signature POC Glucose 182 65 - 199 [facility] mg/dL [facility] Comment: Supplemental ranges: <140 mg/dL before meals <180 mg/dL all other times of the day Specimen Anatomical Collection Method Collection Time Receive d Time (Source) Location / / Volume Laterality Blood specimen 07/06/2017 9:25 AM 017 9:25 (specimen) EST AM EST Daphne Shahid MD POINT OF CARE TEST ORDERABLE S Performing Organization Address City/State/[place] [address] (ABNORMAL) Cardiac Enzymes (LEB/CGP) (07/06/2017 8:10 AM EST) athologist Signature Troponin-T 2.26 (H) 0.00 - [facility] 0.00 ng/mL [facility] Comment: The 99th percentile for [...] additional sample may be indicated. Reference: [place] Definition of Myocardial Infarction. Journal of the [employer] 2012;60:1581-98 CK, Total 124 0 - 200 unit/L [facility] Specimen Anatomical Collection Method Collection Time Receive d Time (Source) Location / / Volume Laterality Blood specimen 07/06/2017 8:10 AM 017 8:23 (specimen) EST AM EST Resulting Agency Comment Spec In Lab Daphne Shahid MD CHEMISTRY ORDERABLES Performing Organization Address City/[facility]/[place] [address] Magnesium (07/06/2017 8:10 AM EST) P athologist Signature Magnesium 0.84 0.69 - 1.07 [facility] mmol/L [facility] Specimen Anatomical Collection Method Collection Time Receive d Time (Source) Location / / Volume Laterality Blood specimen 07/06/2017 8:10 AM 017 8:21 (specimen) EST AM EST Resulting Agency Comment Spec In Lab Daphne Shahid MD CHEMISTRY ORDERABLES Performing Organization Address City/[facility]/ZIP [facility] [place] [address] (ABNORMAL) Basic Metabolic Panel (non-fasting) (07/06/2017 8:10 AM EST) athologist Signature Glucose Lvl 199 65 - 199 [facility] mg/dL [facility] Comment: Diabetes: >=200 mg/dL plus [...] [facility] Estimated GFR >60 >=60 [facility] Comment: The reported eGFR should be multiplied b y 1.2 for patients. The MDRD is not an appropriate measure o f renal function for patients with body mass extremes or in patients with acute kidney failure. http://[employer]ostang/DHnkdep http://[employer]/DHMCnkf Specimen Anatomical Collection Method Collection Time Receive d Time (Source) Location / / Volume Laterality Blood specimen 07/06/2017 8:10 AM 017 8:21 (specimen) EST AM EST Resulting Agency Comment Spec In Lab Daphne Shahid MD CHEMISTRY ORDERABLES Performing Organization Address City/State/[place] [address] POCT Glucose (07/06/2017 7:34 AM EST) athologist Signature POC Glucose 198 65 - 199 [facility] mg/dL [facility] Comment: Supplemental ranges: <140 mg/dL before meals <180 mg/dL all other times of the day Specimen Anatomical Collection Method Collection Time Receive d Time (Source) Location / / Volume Laterality Blood specimen 07/06/2017 7:34 AM 017 7:34 (specimen) EST AM EST Daphne Shahid MD POINT OF CARE TEST ORDERABLE S Performing Organization Address City/State/Z[place] [address] POCT Glucose (07/06/2017 7:03 AM EST) P athologist Signature POC Glucose 181 65 - 199 [facility] mg/dL [facility] Comment: Supplemental ranges: <140 mg/dL before meals <180 mg/dL all other times of the day Specimen Anatomical Collection Method Collection Time Receive d Time (Source) Location / / Volume Laterality Blood specimen 07/06/2017 7:03 AM 017 7:03 (specimen) EST AM EST Daphne Shahid MD POINT OF CARE TEST ORDERABLE S Performing Organization Address City/State/[place] [address] XR Chest [place] or [...] Signature POC Glucose 172 65 - 199 [facility] mg/dL [facility] Comment: Supplemental ranges: <140 mg/dL before meals <180 mg/dL all other times of the day Specimen Anatomical Collection Method Collection Time Receive d Time (Source) Location / / Volume Laterality Blood specimen 07/06/2017 6:21 AM 017 6:21 (specimen) EST AM EST Daphne Shahid MD POINT OF CARE TEST ORDERABLE S Performing Organization Address City/State/[place] [address] POCT Glucose (07/06/2017 5:08 AM EST) athologist Signature POC Glucose 154 65 - 199 [facility] mg/dL [facility] Comment: Supplemental ranges: <140 mg/dL before meals <180 mg/dL all other times of the day Specimen Anatomical Collection Method Collection Time Receive d Time (Source) Location / / Volume Laterality Blood specimen 07/06/2017 5:08 AM 017 5:08 (specimen) EST AM EST Daphne Shahid MD POINT OF CARE TEST ORDERABLE S Performing Organization Address City/State/ZIP Code Phon e Number [address] POCT Glucose (07/06/2017 4:05 AM EST) athologist Signature POC Glucose 142 65 - 199 [facility]dL [facility] Comment: Supplemental ranges: <140 mg/dL [...] [facility]/ZIP [place] [address] POCT Glucose (07/06/2017 3:00 AM EST) athologist Signature POC Glucose 116 65 - 199 [facility] mg/dL [facility] Comment: Supplemental ranges: <140 mg/dL before meals <180 mg/dL all other times of the day Specimen Anatomical Collection Method Collection Time Receive d Time (Source) Location / / Volume Laterality Blood specimen 07/06/2017 3:00 AM 017 3:00 (specimen) EST AM EST Daphne Shahid MD POINT OF CARE TEST ORDERABLE S Performing Organization Address City/State/ZIP Code Phon e Number [address] Potassium (07/06/2017 2:20 AM EST) athologist Signature Potassium 3.9 3.5 - 5.0 [facility] mmol/L [facility] Comment: Please note: ??Patients with [...] Organization Address City/State/ZIP Code Phon e Number [place] [id number] Differential, Automated (07/06/2017 2:20 AM EST) athologist Signature Neutrophils % 72.9 % [facility]OR[facility] Neutr Abs (ANC) 5.53 1.70 - [facility] 6.10 [facility] x10(3)/[facility] LABORATORY Lymphocytes % 16.4 % [facility] Lymphocytes Abs 1.2 0.9 - 3.2 [facility] x10(3)/[facility] LABORATORY Monocytes % 9.4 % [facility] Monocyte Abs 0.7 0.3 - 0.9 [facility] x10(3)/[facility] LABORATORY Eosinophils % 0.5 % [facility] LAB[facility] Eosinophils Abs 0.0 0.0 - 0.4 [facility] x10(3)/[facility] LABORATORY Basophils % 0.4 % [facility] Basophils Abs 0.0 0.0 - 0.1 [facility] x10(3)/[facility] LABORATORY Immature Gran % 0.40 [...] Melisa Gran Abs 0.03 0.00 - 0.04 x10(3)/[facility] LABORATORY Specimen Anatomical Collection Method Collection Time Receive d Time (Source) Location / / Volume Laterality Blood specimen 07/06/2017 2:20 AM 017 2:33 (specimen) EST AM EST Resulting Agency Comment Spec In Lab Daphne Shahid MD HEMATOLOGY ORDERABLES Performing Organization Address City/State/[place] [address] (ABNORMAL) Hemogram (07/06/2017 2:20 AM EST) Analysis Performed At Patho logist Time Signature WBC 7.6 4.0 - 9.5 [facility] x10(3)/[facility] LABORATORY RBC 4.52 (L) 4.58 - [facility] RYAN 5.54 [facility] x10(6)/[facility] LABORATORY Hemoglobin 13.4 (L) 13.7 - [facility] 16.[facility] gm/dL [facility] LABORATORY Hematocrit 39.7 (L) 40.5 - [facility] 48.5 % [facility] LABORATORY MCV 87.8 82.9 - [facility] 93.1 [facility] LABORATORY MCH 29.6 27.5 - [facility] 32.1 pg [facility] LABORATORY MCHC 33.8 32.0 - [facility] 35.7 gm/dL [facility] LABORATORY Platelets 189 145 - 357 [facility] x10(3)/[facility] LABORATORY RDWSD 45.6 (H) 36.0 - [facility] 45.0 [facility] LABORATORY RDWCV 14.3 (H) 11.4 - [facility] 13.8 % [facility] LABORATORY MPV 9.1 7.6 - 12.9 [facility] LABORATORY nRBC % Auto 0.0 % [facility] LABORATORY nRBC Abs Auto 0.000 0.000 - [facility] 0.000 [facility] x10(3)/[facility] LABORATORY Specimen Anatomical Collection Method Collection Time Receive d Time (Source) Location / / Volume Laterality Blood specimen 07/06/2017 2:20 AM 017 2:33 (specimen) EST AM EST Resulting Agency Comment Spec In Lab Daphne Shahid MD HEMATOLOGY ORDERABLES Performing Organization Address City/State/[place] [address] (ABNORMAL) APTT (07/06/2017 2:20 AM EST) P athologist Signature PTT 52 (H) 25 - 35 sec [facility] LABORATORY Comment: The recommended therapeutic range for fu ll dose, unfractionated heparin at [place] is 80 ? 114 seconds. The use [...] Shahid MD HEMATOLOGY ORDERABLES Performing Organization Address City/[facility]/ZIP [facility] Phon e Number [address] POCT Glucose (07/06/2017 2:20 AM EST) athologist Spartz POC Glucose 115 65 - 199 [facility] mg/dL [facility] LABORATORY Comment: Supplemental ranges: <140 mg/dL before meals <180 mg/dL all other times of the day Specimen Anatomical Collection Method Collection Time Receive d Time (Source) Location / / Volume Laterality Blood specimen 07/06/2017 2:20 AM 017 2:20 (specimen) EST AM EST Daphne Shahid MD POINT OF CARE TEST ORDERABLE S Performing Organization Address City/[facility] [place] [address] (ABNORMAL) Cardiac Enzymes (LEB/CGP) (07/06/2017 2:20 AM EST) athologist Signature Troponin-T 2.13 (H) 0.00 - [facility] 0.00 ng/mL [facility] LABORATORY Comment: The 99th percentile for [...] additional sample may be indicated. Reference: Third [place] Definition of Myocardial Infarction. Journal of the [...] Organization Address City/State/ZIP Code Phon e Number [place] [phone] HOSPITAL LABORATORY Drive (ABNORMAL) Hemoglobin A1c (07/06/2017 [...] Mellitus, Diabetes Care 2013; 36: Suppl. 1, S67-19 Est Avg Gluc See note mg/dL [facility] LABORATORY Comment: Estimated Average Glucose not [...] hemoglobinopathies. Additional resources are available on [facility] ADA website. Macario HAMMOND, Ruthann J, Deysi R, et al. ??Tr anslating the A1C assay into estimated average glucose values. ??Diabetes Care 2008:31(8):3604-8898. Specimen Anatomical Collection Method Collection Time Receive d Time (Source) Location / / Volume Laterality Blood specimen 07/06/2017 2:20 AM 017 2:34 (specimen) EST AM EST Resulting Agency Comment Spec In Lab Daphne Shahid MD CHEMISTRY ORDERABLES Performing Organization Address City/State/ZIP Code Phon e Number [place] [phone] HOSPITAL LABORATORY Drive (ABNORMAL) Lipid Panel (07/06/2017 2:20 AM EST) [facility] Method Time Signature Chol, Total 150 <=239 [place] mg/dL [facility] LABORATORY Triglycerides 129 <=199 [place] mg/dL [facility] LABORATORY HDL 32 (L) >=40 [place] mg/dL [facility] LABORATORY LDL Cholesterol 92 <=190 [place] mg/dL [facility] LABORATORY Chol/HDL Ratio 4.7 ratio [facility] LABORATORY Lipid See Note [place] Interpretation [facility] LABORATORY Comment: Lipid management should be guided by a p atient? s ASCVD risk, goals and preferences. ACC/AHA Guidelines recommend high intens ity statin if clinical ASCVD or LDL greater than or equal to 190 mg/dL. http://Drip Inurl.com/VXM-KEE-Qwlteslsj Adults aged 40-75 with LDL 70-189 mg/dL should have their 10 year ASCVD risk estimated with the ACC/AHA ASCVD risk es timator http://tools.acc.org/REJPX-Auwb-Lxuzjrvy r/ Statin should be discussed if risk [...] Shahid MD CHEMISTRY ORDERABLES Performing Organization Address City/[facility]/ZIP Code Phon e Number [address] POCT Glucose (07/06/2017 1:09 AM EST) athologist Signature POC Glucose 121 65 - 199 [facility]/dL [facility] LABORATORY Comment: Supplemental ranges: <140 mg/dL [...] [facility]/ZIP Code Phon e Number [address] POCT Glucose (07/06/2017 12:06 AM EST) athologist Signature POC Glucose 147 65 - 199 [facility] mg/dL [facility] LABORATORY Comment: Supplemental ranges: <140 mg/dL before meals <180 mg/dL all other times of the day Specimen Anatomical Collection Method Collection Time Receive d Time (Source) Location / / Volume Laterality Blood specimen 07/06/2017 12:06 7 (specimen) AM EST 12:06 AM EST Daphne Shahid MD POINT OF CARE TEST ORDERABLE S Performing Organization Address City/State/Z[place] [address] (ABNORMAL) POCT Glucose (07/05/2017 10:56 PM EST) P athologist Signature POC Glucose 200 (H) 65 - 199 [place] mg/dL [facility] LABORATORY Comment: Supplemental ranges: <140 mg/dL before meals <180 mg/dL all other times of the day Specimen Anatomical Collection Method Collection Time Receive d Time (Source) Location / / Volume Laterality Blood specimen 07/05/2017 10:56 7 (specimen) PM EST 10:56 PM EST Daphne Shahid MD POINT OF CARE TEST ORDERABLE S Performing Organization Address City/State/ZIP [place] [address] (ABNORMAL) POCT Glucose (07/05/2017 10:05 PM EST) P athologist Signature POC Glucose 225 (H) 65 - 199 [place] mg/dL [facility] LABORATORY Comment: Supplemental ranges: <140 mg/dL before meals <180 mg/dL all other times of the day Specimen Anatomical Collection Method Collection Time Receive d Time (Source) Location / / Volume Laterality Blood specimen 07/05/2017 10:05 7 (specimen) PM EST 10:05 PM EST Daphne Shahid MD POINT OF CARE TEST ORDERABLE S Performing Organization Address City/State/Z[place] [address] (ABNORMAL) POCT Glucose (07/05/2017 9:02 PM EST) P athologist Signature POC Glucose 301 (H) 65 - 199 [place] mg/dL [facility] LABORATORY Comment: Supplemental ranges: <140 mg/dL before meals <180 mg/dL all other times of the day Specimen Anatomical Collection Method Collection Time Receive d Time (Source) Location / / Volume Laterality Blood specimen 07/05/2017 9:02 PM 017 9:02 (specimen) EST PM EST Daphne Shahid MD POINT OF CARE TEST ORDERABLE S Performing Organization Address City/State/ZIP Code Phon e Number [place] [phone]OSPITAL LAB[address]ORY Drive XR Chest PA or [...] 474 ms MUSE SYSTEM (Bezet) Calculated P [place] 50 degrees MUSE SYSTEM Calculated R [place] -28 degrees MUSE SYSTEM Calculated T [place] 90 degrees MUSE SYSTEM INTERPRETATION Sinus tachycardia [...] Neutr Abs (ANC) 9.08 (H) 1.70 - [facility] 6.10 [facility] x10(3)/[facility] L LABORATORY Lymphocytes % 7.0 % [facility] LABORATORY Lymphocytes Abs 0.7 (L) 0.9 - 3.2 [facility] x10(3)/[facility] LABORATORY Monocytes % 3.7 % [facility] LABORATORY Monocyte Abs 0.4 0.3 - 0.9 [facility] x10(3)/[facility] LABORATORY Eosinophils % 0.1 % [facility] LABORATORY Eosinophils Abs 0.0 0.0 - 0.4 [facility] x10(3)/[facility] LABORATORY Basophils % 0.2 % [facility] LABORATORY Basophils Abs 0.0 0.0 - 0.1 [facility] x10(3)/[facility] LABORATORY Immature Gran % 0.60 [...] Gran Abs 0.06 (H) 0.00 - 0.04 x10(3)/[facility] LABORATORY Specimen Anatomical Collection Method Collection Time Receive d Time (Source) Location / / Volume Laterality Blood specimen 07/05/2017 8:20 PM 017 8:27 (specimen) EST PM EST Resulting Agency Comment Spec In Lab Daphne Shahid MD HEMATOLOGY ORDERABLES Performing Organization Address City/State/ZIP Code Phon e Number [place] [phone] HOSPITAL LABORATORY Drive (ABNORMAL) Hemogram (07/05/2017 8:20 PM EST) Analysis Performed At Patho logist Time Signature WBC 10.3 (H) 4.0 - 9.5 [facility] x10(3)/[facility] LABORATORY RBC 4.64 4.58 - [facility] RYAN 5.54 [facility] x10(6)/[facility] LABORATORY Hemoglobin 14.1 13.7 - [facility] 16.5 gm/dL [facility] LABORATORY Hematocrit 40.8 40.5 - [facility] RYAN 48.5 % [facility] LABORATORY MCV 87.9 82.9 - [facility] 93.1 [facility] LABORATORY MCH 30.4 27.5 - [place] 32.1 pg [facility] LABORATORY MCHC 34.6 32.0 - [facility] 35.7 gm/dL [facility] LABORATORY Platelets 204 145 - 357 [facility] x10(3)/[facility] LABORATORY RDWSD 46.1 (H) 36.0 - [facility] 45.0 [facility] LABORATORY RDWCV 14.5 (H) 11.4 - [facility] RYAN 13.8 % [facility] LABORATORY MPV 9.7 7.6 - 12.9 [facility] LABORATORY nRBC % Auto 0.0 % [facility] LABORATORY nRBC Abs Auto 0.000 0.000 - [facility] 0.000 [facility] x10(3)/[facility] LABORATORY Specimen Anatomical Collection Method Collection Time Receive d Time (Source) Location / / Volume Laterality Blood specimen 07/05/2017 8:20 PM 017 8:27 (specimen) EST PM EST Resulting Agency Comment Spec In Lab Daphne Shahid MD HEMATOLOGY ORDERABLES Performing Organization Address City/[facility]/ZIP [facility] Phon e Number [address] APTT (07/05/2017 8:20 PM EST) athologist Signature PTT 32 25 - 35 sec [facility] LABORATORY Comment: The recommended therapeutic range for fu ll dose, unfractionated heparin at [place] is 80 ? 114 seconds. The use [...] Shahid MD HEMATOLOGY ORDERABLES Performing Organization Address City/[facility] Phon e Number [address] (ABNORMAL) Cardiac Enzymes (LEB/CGP) (07/05/2017 8:20 PM EST) athologist Signature Troponin-T 2.11 (H) 0.00 - [facility] 0.00 ng/mL [facility] LABORATORY Comment: The 99th percentile for [...] additional sample may be indicated. Reference: Third [place] Definition of Myocardial Infarction. Journal of the [place] College [employer] 2012;60:1581-98 CK, Total 149 0 - 200 unit/L [facility] LABORATORY Specimen Anatomical Collection Method Collection Time Receive d Time (Source) Location / / Volume Laterality Blood specimen 07/05/2017 8:20 PM 017 8:27 (specimen) EST PM EST Resulting Agency Comment Spec In Lab Daphne Shahid MD CHEMISTRY ORDERABLES Performing Organization Address City/[facility]/ZIP [place] [address] (ABNORMAL) Magnesium (07/05/2017 8:20 PM EST) P athologist Signature Magnesium 0.68 (L) 0.69 - 1.07 [facility] mmol/L [facility] LABORATORY Specimen Anatomical Collection Method Collection Time Receive d Time (Source) Location / / Volume Laterality Blood specimen 07/05/2017 8:20 PM 017 8:27 (specimen) EST PM EST Resulting Agency Comment Spec In Lab Daphne Shahid MD CHEMISTRY ORDERABLES Performing Organization Address City/State/Z[place] [address] (ABNORMAL) Basic Metabolic Panel (non-fasting) (07/05/2017 8:20 PM EST) P athologist Signature Glucose Lvl 321 (H) 65 - 199 [facility] mg/dL [facility] LABORATORY Comment: Diabetes: >=200 mg/dL plus [...] [facility] LAB[facility] Estimated GFR >60 >=60 [facility] LABORATORY Comment: The reported eGFR should be multiplied b y 1.2 for patients. The MDRD is not an appropriate measure o f renal function for patients with body mass extremes or in patients with acute kidney failure. http://[employer].Doostang/DHnkdep http://FamilyApp/DHnkf Specimen Anatomical Collection Method Collection Time Receive d Time (Source) Location / / Volume Laterality Blood specimen 07/05/2017 8:20 PM 017 8:27 (specimen) EST PM EST Resulting Agency Comment Spec In Lab Daphne Shahid MD CHEMISTRY ORDERABLES Performing Organization Address City/State/[place] [address] (ABNORMAL) POCT Glucose (07/05/2017 7:32 PM EST) P athologist Signature POC Glucose 296 (H) 65 - 199 [facility] mg/dL [facility] LABORATORY Comment: Supplemental ranges: <140 mg/dL before meals <180 mg/dL all other times of the day Specimen Anatomical Collection Method Collection Time Receive d Time (Source) Location / / Volume Laterality Blood specimen 07/05/2017 7:32 PM 017 7:32 (specimen) EST PM EST Daphne Shahid MD POINT OF CARE TEST ORDERABLE S Performing Organization Address City/State/ZIP Code [place] [address] CARDIAC CATHETERIZATION (07/05/2017 6:47 PM EST) Specimen (Source) Anatomical Location Collection Method / Collectio n Time Received Time / Laterality Volume Narrative CARDIOMAC SYSTEM - 07/05/2017 7:27 PM ES T ?[facility] ? Cardiac Cathete rization/Intervention Report ? Patient Name: Natalya, Gregory ? Procedure Date: 07/05/2017 ? A #: [id number] ? Primary Physician: Jet Mckenna ? Case #: [id number] ? File Name: [id number] ? Catheterization Order Number: [id number] ? [facility] ? Final Report [place], [place] ? Patient Name: ? Gregory Natalya ?ID#: ?[id number] ? : ?1945 ? Procedure Date: ? [...] presented with: non -STEMI (w/i 7 days). [place] ?Cardiovascular Society angina c lass was IV. [...] site angio graphy and IABP insertion in seed laboratory assistant. ? Jet Mckenna M.D. ? Electronically Signed by: Jet bunch MKd. ? Report Finalized: 07/05/2017 ??19:23 ? Report Last Ammended: 10/26/2017 ??10:29 ? Procedure Note Clarisa, Jet T, MD - 10/26/2017Formatt ing of this note might be different from the original. [facility] Cardiac Catheterization/Intervention Re port Patient Name: Gregory Hoang Procedure Date: 07/05/2017 A #: [id number] Primary Physician: Jet Mckenna Case #: [id number] File Name: [id number] Catheterization Order Number: [id number] [facility] [employer]ical Design Engineer [facility] Final Report [place], [place] Patient Name: Gregory Hoang ID#: [id number] : 1945 Procedure Date: July 05, [...] presented with: non-STEMI ( w/i 7 days). [place] Cardiovascular Society angina class was IV. No [...] site angiograph y and IABP insertion in seed laboratory assistant. Jet Mckenna M.D. Electronically Signed by: Jet [...] Veda ? (Age): 1945(72y) Med Rec#: ? [id number] ?Sex: ?M ? Site Loc: ? [facility] ?Ht / Wt: ??173(cm)/86(kg) Pt. Loc: ?[facility] ? BSA: ?2 Study Date: ?? 07/05/2017 ?Pt. Type: Inpatient Tape: ? Referring: Daphne Shahid ([id number]) Referring: MANDA ALCANTAR Reading: Blade Preston ([id number]) Surveying Or Spatial Science Technician: Dayami Paula BA, [facility] Diagnosis: *ICD-10-PCS Non-ST elevation [...] E-wave Vmax ?0.8 ?m/sec ? MV deceleration [id number] ?msec ? MV A-wave Vmax ?0.8 ?m/sec [...] ? Mid-Inferior ?Akinetic ? Mid-Inferoseptal ?Hypokinetic ? [place]-Septal ? Akinetic ? [place]-Anterior ? Hypokinetic ? [place]-Lateral ?Hypokinetic ? [place]-Inferior ? Akinetic ? [place]-Tip ?Akinetic ? This report has been electronically sign ed by: _ Blade Preston MD ? 07/06/2017 08 :53:15 Images reviewed and interpretation verif ied [facility] Cardiac Ultrasound Laboratory Procedure Note Blade Preston MD - 07/06/2017Formatt ing of this note might be different from the original. Procedure: Transthoracic Echocardiogram Patient: NATALYA MCBRIDE(Age): [birth year]72y) Med Rec#: [id number] Sex: M Site Loc: [place] Ht / Wt: 173(cm)/86(kg) Pt. Loc: U BSA: 2 Study Date: 07/05/2017 Pt. Type: Inpatie nt Tape: Referring: Daphne Shahid ([id number]) Referring: MANDA ALCANTAR Reading: Blade Preston ([id number]) Surveying Or Spatial Science Technician: Dayami Paula BA, [facility] Diagnosis: *ICD-10-PCS Non-ST elevation [...] MV E-wave Vmax 0.8 m/sec MV deceleration [id number] msec MV A-wave Vmax 0.8 m/sec MV [...] Hypokinetic Mid-Posterolateral Hypokinetic Mid-Inferior Akinetic Mid-Inferoseptal Hypokinetic [place]-Septal Akinetic [place]-Anterior Hypokinetic [place]-Lateral Hypokinetic [place]-Inferior Akinetic [place]-Tip Akinetic This report has been electronically sign ed by: _ Blade Preston MD 07/06/2017 08:53:15 Images reviewed and interpretation verif ied [facility] Cardiac Ultrasound Laboratory Daphne Shahid MD ECHO ORDERABLES Performing Organization Address City/State/ZIP Code Phon e Number [facility] Differential, Automated (07/05/2017 4:55 PM EST) athologist Signature Neutrophils % 77.0 % [facility] LABORATORY Neutr Abs (ANC) 5.26 1.70 - [facility] 6.10 [facility] x10(3)/[facility] LABORATORY Lymphocytes % 13.3 % [facility] LABORATORY Lymphocytes Abs 0.9 0.9 - 3.2 [facility] x10(3)/[facility] LABORATORY Monocytes % 8.2 % [facility] LABORATORY Monocyte Abs 0.6 0.3 - 0.9 [facility] x10(3)/[facility] LABORATORY Eosinophils % 0.7 % [facility] LABORATORY Eosinophils Abs 0.0 0.0 - 0.4 [facility] x10(3)/[facility] LABORATORY Basophils % 0.4 % [facility] LABORATORY Basophils Abs 0.0 0.0 - 0.1 [facility] x10(3)/[facility] LABORATORY Immature Gran % 0.40 [...] Abs 0.03 0.00 - 0.04 x10(3)/[facility] MAR Y [facility] LABORATORY Specimen Anatomical Collection Method Collection Time Receive d Time (Source) Location / / Volume Laterality Blood specimen 07/05/2017 4:55 PM 017 5:24 (specimen) EST PM EST Resulting Agency Comment Spec In Lab Daphne Shahid MD HEMATOLOGY ORDERABLES Performing Organization Address City/State/[place] [address] (ABNORMAL) Hemogram (07/05/2017 4:55 PM EST) Analysis Performed At Patho logist Time Signature WBC 6.8 4.0 - 9.5 [facility] x10(3)/[facility] LABORATORY RBC 4.67 4.58 - [place] [facility] 5.54 [facility] x10(6)/[facility] LABORATORY Hemoglobin 14.0 13.7 - [facility] 16.[facility] gm/dL [facility] LABORATORY Hematocrit 41.0 40.5 - [facility] 48.5 % [facility] LABORATORY MCV 87.8 82.9 - [facility] 93.1 [facility] LABORATORY MCH 30.0 27.5 - [place] 32.1 pg [facility] LABORATORY MCHC 34.1 32.0 - [facility] R[facility] 35.7 gm/dL [facility] LABORATORY Platelets 197 145 - 357 [facility] x10(3)/[facility] LABORATORY RDWSD 46.4 (H) 36.0 - [place] [facility] 45.0 [facility] LABORATORY RDWCV 14.5 (H) 11.4 - [facility] R[facility]AN 13.8 % [facility] LABORATORY MPV 9.7 7.6 - 12.9 [facility] nRBC % Auto 0.0 % [facility] LABORATORY nRBC Abs Auto 0.000 0.000 - [facility] RYAN 0.000 [facility] x10(3)/[facility] LABORATORY Specimen Anatomical Collection Method Collection Time Receive d Time (Source) Location / / Volume Laterality Blood specimen 07/05/2017 4:55 PM 017 5:24 (specimen) EST PM EST Resulting Agency Comment Spec In Lab Daphne Shahid MD HEMATOLOGY ORDERABLES Performing Organization Address City/State/[place] [address] (ABNORMAL) Cardiac Enzymes (LEB/CGP) (07/05/2017 4:55 PM EST) athologist Signature Troponin-T 1.69 (H) 0.00 - [place] 0.00 ng/mL [facility] LABORATORY Comment: The 99th percentile for [...] additional sample may be indicated. Reference: Third [place] Definition of Myocardial Infarction. Journal of the [...] Organization Address City/State/[place] [address] (ABNORMAL) pro-Brain Natriuretic Peptide (07/05/2017 4:55 PM EST) P athologist Signature ProBNP 1,598 (H) <=125 [facility] pg/mL [facility] LABORATORY Specimen Anatomical Collection Method Collection Time Receive d Time (Source) Location / / Volume Laterality Blood specimen 07/05/2017 4:55 PM 017 5:24 (specimen) EST PM EST Resulting Agency Comment Spec In Lab Daphne Shahid MD CHEMISTRY ORDERABLES Performing Organization Address City/State/ZIP Code Phon e Number [address] Magnesium (07/05/2017 4:55 PM EST) athologist Signature Magnesium 0.78 0.69 - 1.07 [facility] mmol/L [facility] LABORATORY Specimen Anatomical Collection Method Collection Time Receive d Time (Source) Location / / Volume Laterality Blood specimen 07/05/2017 4:55 PM 017 5:24 (specimen) EST PM EST Resulting Agency Comment Spec In Lab Daphne Shahid MD CHEMISTRY ORDERABLES Performing Organization Address City/[facility] Code Phon e Number [address] (ABNORMAL) Basic Metabolic Panel (non-fasting) (07/05/2017 4:55 PM EST) athologist Signature Glucose Lvl 230 (H) 65 - 199 [facility] mg/dL [facility] LABORATORY Comment: Diabetes: >=200 mg/dL plus [...] [facility] Estimated GFR >60 >=60 [facility] LABORATORY Comment: The reported eGFR should be multiplied b y 1.2 for patients. The MDRD is not an appropriate measure o f renal function for patients with body mass extremes or in patients with acute kidney failure. [email or web address] Specimen Anatomical Collection Method Collection Time Receive d Time (Source) Location / / Volume Laterality Blood specimen 07/05/2017 4:55 PM 017 5:24 (specimen) EST PM EST Resulting Agency Comment Spec In Lab Daphne Shahid MD CHEMISTRY ORDERABLES Performing Organization Address [facility] Phon e Number [address] (ABNORMAL) APTT (07/05/2017 4:55 PM EST) P athologist Signature PTT 41 (H) 25 - 35 sec [facility] Comment: The recommended therapeutic range for fu ll dose, unfractionated heparin at [place] is 80 ? 114 seconds. The use [...] Shahid MD HEMATOLOGY ORDERABLES Performing Organization Address City/[facility]/ZIP [facility] [place] [address] (ABNORMAL) POCT Glucose (07/05/2017 4:53 PM EST) P athologist Signature POC Glucose 208 (H) 65 - 199 [facility] mg/dL [facility] LABORATORY Comment: Supplemental ranges: <140 mg/dL before meals <180 mg/dL all other times of the day Specimen Anatomical Collection Method Collection Time Receive d Time (Source) Location / / Volume Laterality Blood specimen 07/05/2017 4:53 PM 017 4:53 (specimen) EST PM EST Daphne Shahid MD POINT OF CARE TEST ORDERABLE S Performing Organization Address City/State/[place] [address] EKG 12 Lead (07/05/2017 4:32 PM EST) Component Value Ref Range Test Analysis Performed Pathologis t Method Time At Signature Ventricular rate 97 BPM MUSE SYSTEM Atrial Rate 97 BPM MUSE SYSTEM P-R Interval 148 ms MUSE SYSTEM QRS Duration 96 ms MUSE SYSTEM Q-T Interval 364 ms MUSE SYSTEM QTC Calculated 462 ms MUSE SYSTEM (Bezet) Calculated P [place] 48 degrees MUSE SYSTEM Calculated R [place] -33 degrees MUSE SYSTEM Calculated T [place] 98 degrees MUSE SYSTEM INTERPRETATION Normal sinus [...] post-op day 1 in the AM Give [place] if unable to take PO, Routine Given [...] post-op day 1 in the AM Give [place] if unable to take PO, Routine atorvastatin [...] More Luther RN)1259 (Given - Provider: More uLther RN)1757 (Given - Provider: Yanet Valdovinos RN) [...] RN) 0900 (Not Given - Provider: Em oje RN - Reason: Patient/family refused) 0900 (Not [...] post-op day 1 in the AM Give [place] if unable to take PO
Routine Group [...]
Routine documented in this encounter Care Teams Feather Duster Winder Relationship Specialty Start Date End Date Lovely Vicente MD PCP - General 04/16/[address] [place] [address] documented as of this encounter
--- OUTSIDE RECORDS SUMMARY | 2022-02-20 08:17 | XMS_ITS | Encounter Summary ---
:1945 [place] [address] Care Team Providers Name Role Phone Lovely Vicente MD Primary Care Provider Reason for Visit Auth/Cert Specialty Diagnoses / Procedures Referred By Contact Refer red To Contact Diagnoses STEMI (ST elevation myocardial infarction) NSTEMI STEMI Procedures CARDIAC CATHETERIZATION NAYE IPI Referral ID Status Reason Start Date Expiration Date Visits Requ ested Visits Authorized [id number] 1 1 Encounter Details Date Type Department Care Team Description 07/07/2017 Anesthesia Event Main Operating Room Yifan Jaime MD [facility] [place] [place] [address] [facility] Ginny Murray MD 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; 07/11/17; 2355 Intra-Aortic Balloon 07/05/17; [...] Miller, Carrie L, Type: Cuffed; ETT Size: SKIVER BLOCKERS 8 mm; Santiago Blade: 2; Notes: Asleep, [...] by 7 0400 by medial; knee; Monica Orourek RN Nollet, Mire ille M, collapsible closed [...] Murray MD - 07/08/2017 5:08 PM EST [facility] Department of Anesthesiology Post-procedure Note Patient: Don Fatima Procedure Summary Date Anesthesia Start Anesthesia Stop Room / Location 07/07/17 1335 1836 [facility] OR [facility] MAIN OR Procedure Diagnosis Surgeon Responsible Provider @CABG, USING ARTERIAL GRAFT;SINGLE ARTERIAL GRAFT (WRVU 33.75) (N/A Chest); @CABG, TWO VENOUS GRAFTS & ARTERIAL GRAFT (WRVU 7.93) (N/A Chest); ENDOSCOPIC HARVEST VEIN(S) FOR CABG (WRVU 0.31) (Right Leg) (CAD) Yuan Freitas MD Hartman, Gregg S, MD All Anesthesia Providers: Anesthesiologist: Yifan Perez MD Specimen Accessioner: Ginny Murray MD Most Recent Vitals: 07/08/17 [...] SETUP performed by Manny Mcknight MD at [facility] MAIN OR ??? PRO COLONOSCOPY, REMV LESN, SNARE 01/16/2014 COLONOSCOPY, POLYPECTOMY, REMOVAL LESION BY SNARE performed by Nohemi Jaimes MD at [facility] ENDOSCOPY ??? PRO THYROIDECTOMY 03/28/2013 THYROIDECTOMY, TOTAL OR COMPLETE performed by Manny Mcknight MD at [facility] MAIN OR Social History Substance Use [...] Cardiology Vitaliy Nobles MD [facility] [address] [place], [place] [address] (Wo rk) documented as of this [...] mg documented in this encounter Care Teams Maintenance Truck Driver Relationship Specialty Start Date End Date Lovely Vicente MD PCP - General 04/16/[address] [place] [address] documented as of this encounter
--- OUTSIDE RECORDS SUMMARY | 2022-02-20 08:18 | XMS_ITS | Encounter Summary ---
:1945 Author Organization [facility] [place] [address] Care Team Providers Name Role Phone Lovely Vicente MD Primary Care Provider Reason for Visit Reason Onset Date Comments Referral 10/30/2015 Urgent referral for mac on [address] Encounter Details Date Type Department Care Team Description 10/30/2015 Telephone Ophthalmology at [facility] C Jayson Ruiz Referral (Urgent [facility] MD Grabiel referral for mac on [facility] [address] [place]) [place] [address] OPHTHALMOLOGY DEPT. [phone] [place], [place] [address] (Wo rk) Social History Tobacco [...] Cardiology Vitaliy Nobles MD [facility] ER CARDIOLOGY [place], [place] [address] (Wo rk) documented as of this encounter Visit Diagnoses Not on filedocumented in this encounter Care Teams Costumer Assistant Relationship Specialty Start Date End Date Lovely Vicente MD PCP - General 04/16/[address] [place] [address] documented as of this encounter
--- OUTSIDE RECORDS SUMMARY | 2022-02-20 08:18 | XMS_ITS | Encounter Summary ---
:1945 Author Organization [facility] [place] [address] Care Team Providers Name Role Phone Lovely Vicente MD Primary Care Provider Encounter Details Date Type Department Care Team Description 11/28/2016 Telephone Dermatology at [facility] Rigoberto Garcia III, [address] [place] [address] [facility] [phone] [facility] [place], [place] [address] (Wo rk) Social History Tobacco [...] provider. Rigoberto Garcia MD Section of Dermatology [facility] documented in this encounter Plan of Treatment Upcoming Encounters Date Type Specialty Care Team Description 03/26/2022 Office Visit Cardiology Vitaliy Nobles MD [facility] CARDIOLOGY [place], [place] [address] (Wo rk) documented as of this encounter Visit Diagnoses Not on filedocumented in this encounter Care Teams Blueprint Trimmer Relationship Specialty Start Date End Date Lovely Vicente MD PCP - General 04/16/[address] [place] [address] documented as of this encounter
--- OUTSIDE RECORDS SUMMARY | 2022-02-20 08:18 | XMS_ITS | Encounter Summary ---
:1945 Author Organization [facility] [place] [address] Care Team Providers Name Role Phone Lovely Vicente MD Primary Care Provider Reason for Visit Reason Comments Skin Check Encounter Details Date Type Department Care Team Description 04/16/2015 Follow-Up Dermatology at Rigoberto Forman x of melanoma of skin; Abdelrahman HOOPER MD Multiple benign nevi [address] [place] [address] [facility] [place], [place] [address] (Wo rk) Social History Tobacco [...] Diagnostic, Drum (ACCU-CHEK COMPACT TEST) Strip by [facility].(Non- Drug; Combo Route) route 2 times daily. [...] accuracy of the documentation in this encounter. Rgioberto Garcia MD Section of Dermatology [facility] documented in this encounter Plan of Treatment Upcoming Encounters Date Type Specialty Care Team Description 03/26/2022 Office Visit Cardiology Vitaliy Nobles MD [facility] ER CARDIOLOGY [place], [place] [address] (Wo rk) documented as of this encounter Visit Diagnoses Diagnosis Hx of melanoma of skin Personal history of malignant melanoma o f skin Multiple benign nevi Benign neoplasm of skin, site unspecifie d documented in this encounter Care Teams Track Production Engineer Relationship Specialty Start Date End Date Lovely Vicente MD PCP - General 04/16/[address] [place] [address] documented as of this encounter
--- OUTSIDE RECORDS SUMMARY | 2022-02-20 08:18 | XMS_ITS | Encounter Summary ---
:1945 Author Organization [facility] [address] Care Team Providers Name Role Phone Angela Holliday APRN Primary Care Provider Encounter Details Date Type Department Care Team Description 04/30/2014 Orders Only Endocrinology at [facility] Albertina Palmer, Thyroid cancer [facility] Jorge Boyer MD (Primary Dx) [place] [address] [facility] [phone] CENTER ENDOCRINOLOGY DEPT [place], [place] [address] Social History Tobacco Use Types [...] Nobles MD [facility] ER CARDIOLOGY [place], [place] [address] (Wo rk) documented as of this encounter Visit Diagnoses Diagnosis Thyroid cancer - Primary Malignant neoplasm of thyroid gland documented in this encounter Care Teams Heavy Equipment Rental Associate Relationship Specialty Start Date End Date Angela Holliday APRN PCP - General 01/25/13 04/15/[address] [place] [address] documented as of this encounter
--- OUTSIDE RECORDS SUMMARY | 2022-02-20 08:18 | XMS_ITS | Encounter Summary ---
:1945 Author Organization [facility] [place] [address] Care Team Providers Name Role Phone Lovely Vicente MD Primary Care Provider Encounter Details Date Type Department Care Team Description 09/03/2016 Laboratory Appointment Lab at [facility] Hx of [facility] [place] [id number] Social History Tobacco Use Types Packs/Day Years [...] MD [facility] ER CARDIOLOGY [place], [place] [address] (Wo rk) documented as of [...] EST) P athologist Signature Thyroglobulin <0.4 <=54.9 [facility] ng/mL [facility] Comment: Interpret with caution. Tg levels [...] BR et al. J Clin Endo Metab 1999;84:0490-5001). Assay performed using the DPC Immulite T g immunometric assay. (lowest detection limit is <0.4 ng/ml). Thyroglob Ab <20.0 0.0 - 40.0 IU/mL [facility] Comment: Assay performed is [...] City/State/[place] [address] TSH (09/03/2016 11:07 AM EST) P athologist Signature TSH 3.01 0.27 - 4.20 [facility] mcIU/mL [facility] Specimen Anatomical Collection Method Collection Time Receive d Time (Source) Location / / Volume Laterality Blood specimen 09/03/2016 11:07 7 (specimen) AM EST 11:22 AM EST Resulting Agency Comment Spec In Lab Luz Prescott MD CHEMISTRY ORDERABLES Performing Organization Address City/State/[place] [address] documented in this encounter Visit Diagnoses Diagnosis Hx of papillary thyroid carcinoma Personal history of malignant neoplasm o f thyroid documented in this encounter Care Teams Wellness Program Manager Relationship Specialty Start Date End Date Lovely Vicente MD PCP - General 04/16/[address] [place] [address] documented as of this encounter
--- OUTSIDE RECORDS SUMMARY | 2022-02-20 08:18 | XMS_ITS | Encounter Summary ---
:1945 Author Organization [place] [address] Care Team Providers Name Role Phone Som Holliday APRN Primary Care Provider Encounter Details Date Type Department Care Team Description 04/11/2014 Procedure visit Gastroenterology at [facility], CONV Esophageal reflux [facility] Luz Winchester RN (Primary Dx) [place] [address] Social History Tobacco Use Types Packs/Day Years Used Date Former Smoker Alcohol Use Standard Drinks/Week Comments No 0 (1 standard drink = 0.6 oz pure alcoho l) Sex Assigned at Date Recorded Not on file documented as of this encounter Progress Notes Adalid Can MD - 04/13/2014 3:43 PM EDT ESOPHAGEAL MANOMETRY Don Fatima Male, 69 yrs, 1945 PCP: SOM HOLLIDAY DYSLEXIA TEACHER: NONE STUDY DATE: 04/11/14 PROVIDER: Adal[place], [place] ([id number]) INDICATION Reflux; preoperative evaluation. METHODS Stationary esophageal manometry was performed with the Valeritas esophageal motility system utilizing the Polygram software [...] of the esophagus. Adalid Can, PhD, MD shearing machine operator, [employer] Section of Gastroenterology and Hepatology [facility] [place] [address] V: [phone] F: [phone] [facility]/gabriela CC/EC: PCP - staff msg copy 04/13/14 Henrique Taylor MD - fax copy 04/13/14 Luz Keller RN - 04/11/2014 8:14 AM EDT Esophageal manometry performed without difficulty and Was well tolerated. documented in this encounter Plan of Treatment Upcoming Encounters Date Type Specialty Care Team Description 03/26/2022 Office Visit Cardiology Vitaliy Nobles MD [facility]ICAL [facility] ER CARDIOLOGY [place], [place] [address] (Wo rk) documented as of this encounter Visit Diagnoses Diagnosis Esophageal reflux - Primary documented in this encounter Care Teams Agricultural And Forestry Supervisor Relationship Specialty Start Date End Date Som Holliday APRN PCP - General 01/25/13 04/15/[address] [place] [address] documented as of this encounter
--- OUTSIDE RECORDS SUMMARY | 2022-02-20 08:18 | XMS_ITS | Encounter Summary ---
:1945 Author Organization [facility] [place] [address] Care Team Providers Name Role Phone Lovely Vicente MD Primary Care Provider Reason for Visit Reason Comments Thyroid Cancer Encounter Details Date Type Department Care Team Description 06/05/2015 Office Visit Endocrinology at [facility] Albertina Prescott, History of papillary [facility] MD Luz adenocarcinoma of [facility] thyroid (Primary Dx) [place] [address] CENTER [phone] [place] [address] Social History Tobacco Use Types Packs/Day Years [...] the thyroid gland were obtained using a Babelgum ultrasound machine. All measurements are given as AP x Transverse x Longitudinal Right Lobe: Absent Left Lobe: Absent Isthmus: Absent Central/Lateral neck: no morphologically abnormal lymph nodes. Impression: No sonographic evidence of recurrence. LUZ PRESCOTT MD Neuropsychology Medical Consultantchange manager Section of Endocrinology [facility] Luz Prescott MD - 06/05/2015 [...] Diagnostic, Drum (ACCU-CHEK COMPACT TEST) Strip by [facility].(Non-Drug; Combo Route) route 2 times daily. [...] --f/u in 1 year LUZ PRESCOTT MD Neuropsychology Medical Consultantchange manager Section of Endocrinology [facility] documented in this encounter Miscellaneous [...] Cardiology Vitaliy Nobles MD [facility] DR [place], [place] [address] (Wo rk) documented as of [...] encounter Results Thyroglobulin (06/05/2015 9:04 AM EST) P athologist Signature Thyroglobulin 0.6 <=54.9 [place] ng/mL [facility] Comment: Interpret with caution. Tg levels [...] BR et al. J Clin Endo Metab 1999;84:0948-3185). 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
--- OUTSIDE RECORDS SUMMARY | 2022-02-20 08:18 | XMS_ITS | Encounter Summary ---
:1945 Author Organization [place] [address] Care Team Providers Name Role Phone Lovely Vicente MD Primary Care Provider Reason for Visit Reason Comments Follow-up Encounter Details Date Type Department Care Team Description 06/03/2017 Office Visit Dermatology at Rig[facility]to Forman benign nevi; Abdelrahman HOOPER MD History of melanoma; [address] [facility] History of dysplastic nevus; [place] [address] Skin exam for malignant neoplasm [phone] [facility] [place], [place] [address] Social History Tobacco Use Types [...] Garcia MD Section of Dermatology [facility] documented in this encounter Plan of Treatment Upcoming Encounters Date Type Specialty Care Team Description 03/26/2022 Office Visit Cardiology Vitaliy Nobles MD [facility] ER CARDIOLOGY [place], [place] [address] (Wo rk) documented as of [...] skin documented in this encounter Care Teams Junior High School Principal Relationship Specialty Start Date End Date Lovely Vicente MD PCP - General 04/16/[address] [place] [address] documented as of this encounter
--- OUTSIDE RECORDS SUMMARY | 2022-02-20 08:18 | XMS_ITS | Encounter Summary ---
:1945 Author Organization [facility] [place] [address] Care Team Providers Name Role Phone Lovely Vicente MD Primary Care Provider Reason for Visit Reason Comments Skin Lesion Encounter Details Date Type Department Care Team Description 11/24/2016 [facility]oplasm of uncertain behavior of skin; Road IIIMD Pigmented skin lesion of uncertain natur e; [address] [facility] [place] of [place] [address] [facility] SIMÓN-DERMATOLGY [place], [place] [address] Social History Tobacco Use Types [...] or concerns, please call the office at [phone]. If it is after 5PM, or a holiday or weekend, please call [phone] and ask for the Daycare Teacher on-call. documented in this encounter Progress Notes Taina Brown LPN - 11/24/2016 7:45 AM EDT Images from the original note were not included. DERMATOLOGY ESTABLISHED PATIENT CLINIC NOTE Date of service: 11/24/2016 Don Fatima : 1945 Provider: Rigoberto Garcia MD PROBLEM: new spots on his back SKIN HISTORY: Melanoma - 0.98 mm with a Dee Level IV, high on his mid back in 2005 ?? Psoriasis HPI Don Fatima is a 71 y.o. year old male.Established patient of [facility]. Last seen 06/05/16. Here today for new [...] Vitaliy Nobles MD [facility] DR [place], [place] [address] (Wo rk) documented as of [...] Component Value Ref Test Analysis Performed At [facility] Range Method Time Signature Surgical [id number] ?Location: [facility] Pathology MALINTA Report The signing pathologist has (i) examined [...] [facility] [place] [address] Specimen to Pathology (NON-OR) (11/24/2016 8:28 AM EDT) Specimen Anatomical Collection Method Collection Time Receive d Time (Source) Location / / Volume Laterality AP Specimen 11/24/2016 8:28 AM 7 9:29 EDT AM EDT Narrative [facility]Y - 11/24/2016 9:29 AM EDT Specimen requisition ordered. ??Separate Pathology report to follow Resulting Agency Comment Spec In Lab Rigoberto Garcia III, MD PATHOLOGY/CYTOLOGY ORDERABLE S Performing Organization Address City/[facility]/[place] [address] documented in this encounter Visit Diagnoses Diagnosis Neoplasm of uncertain behavior of skin Pigmented skin lesion of uncertain natur e History of melanoma Personal history of malignant melanoma o f skin documented in this encounter Care Teams Curb Setter Helper Relationship Specialty Start Date End Date Lovely Vicente MD PCP - General 04/16/[address] [place] [address] [address] [facility] [place] [address] documented as of this encounter
--- OUTSIDE RECORDS SUMMARY | 2022-02-20 08:18 | XMS_ITS | Encounter Summary ---
:1945 Author Organization [facility] [place] [address] Care Team Providers Name Role Phone Lovely Vicente MD Primary Care Provider Reason for Visit Reason Onset Date Comments Pre Procedure Call 12/02/2016 Encounter Details Date Type Department Care Team Description 12/02/2016 Telephone Dermatology at [facility] Mira James LPN Pre Procedure Call [address] [place] [address] Social History Tobacco Use Types Packs/Day [...] MD [facility] ER CARDIOLOGY [place], [place] [address] (Wo rk) documented as of this encounter Visit Diagnoses Not on filedocumented in this encounter Care Teams Turning Lathe Tender Relationship Specialty Start Date End Date Lovely Vicente MD PCP - General 04/16/[address] [place] [address] documented as of this encounter
--- OUTSIDE RECORDS SUMMARY | 2022-02-20 08:18 | XMS_ITS | Encounter Summary ---
:1945 Author Organization [facility] [place] [address] Care Team Providers Name Role Phone Lovely Vicente MD Primary Care Provider Reason for Visit Reason Onset Date Comments Medication Refill 12/24/2016 Encounter Details Date Type Department Care Team Description 12/24/2016 Refill Endocrinology at [facility] Luz Stallings MD [facility] [place] [address] ENDOCRINOLOGY DEPT [phone] [place], [place] [address] (Wo rk) Social History Tobacco [...] [facility] ER DR [place], [place] [address] (Wo rk) documented as of this encounter Visit Diagnoses Not on filedocumented in this encounter Care Teams Accounting System Expert Relationship Specialty Start Date End Date Lovely Vicente MD PCP - General 04/16/[address] [place] [address] documented as of this encounter
--- OUTSIDE RECORDS SUMMARY | 2022-02-20 08:18 | XMS_ITS | Encounter Summary ---
:1945 Author Organization [facility] [place] [address] Care Team Providers Name Role Phone Lovely Vicente MD Primary Care Provider Reason for Visit Reason Comments Skin Check Encounter Details Date Type Department Care Team Description 06/05/2016 Office Visit Dermatology at [facility] ist[facility] of melanoma; Abdelrahman HOOPER MD Seborrheic keratosis; [address] [facility] [place] (actinic keratosis); [place] [address] Multiple nevi; [phone] [facility] Scar [address]-DERMATOLGY [place], [place] [address] Social History Tobacco Use Types [...] Diagnostic, Drum (ACCU-CHEK COMPACT TEST) Strip by [facility].(Non- Drug; Combo Route) route [...] MD [facility] ER DR CARDIOLOGY [place] [id number] (Wo rk) documented as of this encounter Visit Diagnoses Diagnosis History of melanoma Personal history of malignant melanoma o f skin Seborrheic keratosis Other seborrheic keratosis [place] (actinic keratosis) Actinic keratosis Multiple nevi Benign neoplasm of skin, site unspecifie d Scar Scar condition and fibrosis of skin documented in this encounter Care Teams Light Armored Reconnaissance Officer Relationship Specialty Start Date End Date Lovely Vicente MD PCP - General 04/16/[address] [place] [address] documented as of this encounter
--- OUTSIDE RECORDS SUMMARY | 2022-02-20 08:18 | XMS_ITS | Encounter Summary ---
:1945 Author Organization [facility] [place] [address] Care Team Providers Name Role Phone MiyaAngela STACIE Primary Care Provider Encounter Details Date Type Department Care Team Description 04/26/2014 Office Visit Endocrinology at [facility] Albertina Palmer, Papillary thyroid [facility] [place] [address] CENTER [phone] ENDOCRINOLOGY DEPT [place] [address] Social History Tobacco Use Types Packs/Day Years [...] on [place]. Rosalind Palmer Endocrine Staff Physician [facility] Rosalind Palmer MD - 04/26/2014 8:39 AM [...] one yr Rosalind Palmer Endocrine Staff Physician [facility] documented in this encounter Plan of Treatment Upcoming Encounters Date Type Specialty Care Team Description 03/26/2022 Office Visit Cardiology Vitaliy Nobles MD [facility] ER [address] [place], [place] [address] (Wo rk) documented as of [...] athologist Signature Thyroglobulin <0.4 <=54.9 CERNER ng/mL [facility] Comment: Interpret with caution. Tg levels may [...] DALLAS et al. J Clin Endo Metab 1999;84:8791-5305). Assay performed using the DPC Immulite T g immunometric assay. (lowest detection limit is <0.4 ng/ml). Thyroglob Ab <20.0 0.0 - 40.0 IU/mL [facility] Comment: Assay performed is the [...] Organization Address City/State/ZIP Code Phon e Number [place] [phone] RAKESH MILLENNIUM (ABNORMAL) TSH (04/26/2014 9:07 AM EDT) P athologist Signature TSH 4.46 (H) 0.27 - 4.20 CERNER mcIU/mL MILLENNIUM Specimen Anatomical Collection Method Collection Time Receive d Time (Source) Location / / Volume Laterality Blood specimen 04/26/2014 9:07 AM 014 9:12 (specimen) EDT AM EDT Resulting Agency Comment Spec In Lab oRsalind Palmer MD CHEMISTRY ORDERABLES Performing Organization Address City/State/[place] [address] [facility] documented in this encounter Visit Diagnoses Diagnosis Papillary thyroid carcinoma Malignant neoplasm of thyroid gland documented in this encounter Care Teams Mechanic Foreman Relationship Specialty Start Date End Date Angela Holliday APRN PCP - General 01/25/13 04/15/[address] [place] [address] documented as of this encounter
--- OUTSIDE RECORDS SUMMARY | 2022-02-20 08:18 | XMS_ITS | Encounter Summary ---
:1945 Author Organization [facility] [place] [address] Care Team Providers Name Role Phone Lovely Vicente MD Primary Care Provider Encounter Details Date Type Department Care Team Description 09/03/2016 Office Visit Endocrinology at [facility] Maria Ines Stallings of [facility] MD [place] [address] [place] [address] ENDOCRINOLOGY DEPT [place], [place] [address] Social History Tobacco Use Types [...] to his magnesium pill. CALIXTO PRESCOTT MD Human Resources Administratordocketing specialist Section of Endocrinology [facility] Calixto Prescott MD - 09/03/2016 11:30 AM [...] sonographic evidence of recurrence. CALIXTO PRESCOTT MD Human Resources Administratordocketing specialist Section of Endocrinology [facility] documented in this encounter Plan of Treatment Upcoming Encounters Date Type Specialty Care Team Description 03/26/2022 Office Visit Cardiology Vitaliy Nobles MD [facility] CARDIOLOGY [place], [place] [address] (Wo rk) documented as of this encounter Results Thyroglobulin (09/07/2017 2:41 PM EST) athologist Signature Thyroglobulin 1.4 <=54.9 [facility] ng/mL [facility] Comment: Thyroglobulin levels may [...] Thyroglob Ab <20.0 0.0 - 40.0 IU/mL [facility] Comment: Assay performed [...] Organization Address City/State/[place] [address] [facility] [address] TSH (09/07/2017 2:41 PM EST) athologist Signature TSH 3.93 0.27 - 4.20 [facility] mlU/ML [facility] Specimen Anatomical Collection Method Collection Time Receive d Time (Source) Location / / Volume Laterality Blood specimen 09/07/2017 2:41 PM 018 2:46 (specimen) EST PM EST Resulting Agency Comment Spec In Lab Calixto Prescott MD CHEMISTRY ORDERABLES Performing Organization Address City/State/ZIP Code Phon e Number [place] [phone] [facility] [address] Thyroglobulin (09/03/2016 11:07 AM EST) athologist Signature Thyroglobulin <0.4 <=54.9 [facility] ng/mL [facility] Comment: Interpret with caution. [...] BR et al. J Clin Endo Metab 1999;84:2797-5299). Assay performed using the [employer] Clean Techulite T g immunometric assay. (lowest detection limit is <0.4 ng/ml). Thyroglob Ab <20.0 0.0 - 40.0 IU/mL [facility] Comment: Assay performed is the DPC Immulite Tg-A b immunometric assay. (Cutoff for TgAb negativity is <20 IU/ml ) Specimen Anatomical Collection Method Collection Time Receive d Time (Source) Location / / Volume Laterality Blood specimen 09/03/2016 11:07 7 1:37 (specimen) AM EST PM EST Resulting Agency Comment Spec In Lab Calixto Prescott MD CHEMISTRY ORDERABLES Performing Organization Address City/[facility]/ZIP Code Phon e Number [address] TSH (09/03/2016 11:07 AM EST) P athologist Signature TSH 3.01 0.27 - 4.20 [facility] mcIU/mL [facility] Specimen Anatomical Collection Method Collection Time Receive d Time (Source) Location / / Volume Laterality Blood specimen 09/03/2016 11:07 7 (specimen) AM EST 11:22 AM EST Resulting Agency Comment Spec In Lab Calixto Prescott MD CHEMISTRY ORDERABLES Performing Organization Address City/[facility]/[place] [address] documented in this encounter Visit Diagnoses Diagnosis Hx of papillary thyroid carcinoma Personal history of malignant neoplasm o f thyroid documented in this encounter Care Teams Tree Loader Meat Relationship Specialty Start Date End Date Lovely Vicente MD PCP - General 04/16/[address] [place] [address] [address] [place] [address] documented as of this encounter
--- OUTSIDE RECORDS SUMMARY | 2022-02-20 08:18 | XMS_ITS | Encounter Summary ---
:1945 Author Organization [facility] Address [facility] [place] [address] Care Team Providers Name Role Phone Lovely Vicente MD Primary Care Provider Reason for Visit Reason Comments Skin Check Encounter Details Date Type Department Care Team Description 11/05/2015 Office Visit Dermatology at [facility] benign nevi; Abdelrahman HOOPER MD Lentigines; [address] [facility] History of melanoma; [place] [address] Skin exam for malignant neoplasm [phone] [facility] [place], [place] [address] Social History Tobacco Use Types [...] Rigoberto Garcia MD Section of Dermatology [facility] documented in this encounter Plan of Treatment Upcoming Encounters Date Type Specialty Care Team Description 03/26/2022 Office Visit Cardiology Vitaliy Nobles MD [facility] ER CARDIOLOGY [place], [place] [address] (Wo rk) documented as of this encounter Visit Diagnoses Diagnosis Multiple benign nevi Benign neoplasm of skin, site unspecifie d Lentigines Other dyschromia History of melanoma Personal history of malignant melanoma o f skin Skin exam for malignant neoplasm Screening for malignant neoplasm of the skin documented in this encounter Care Teams Lay Out Carpenter Relationship Specialty Start Date End Date Lovely Vicente MD PCP - General 04/16/15 [address] [facility] [place] [address] documented as of this encounter
--- OUTSIDE RECORDS SUMMARY | 2022-02-20 08:18 | XMS_ITS | Encounter Summary ---
:1945 [place] [address] Care Team Providers Name Role Phone Lovely Vicente MD Primary Care Provider Reason for Visit Auth/Cert Specialty Diagnoses / Procedures Referred By Contact Refer red To Contact Diagnoses STEMI (ST elevation myocardial infarction) NSTEMI STEMI Procedures CARDIAC CATHETERIZATION NAYE IPI Referral ID Status Reason Start Date Expiration Date Visits Requ ested Visits Authorized [id number] 1 1 Encounter Details Date Type Department Care Team Description 07/05/2017 Surgery Appeals Board Referee Jet Guan, CARDIAC CATHETERIZATION [facility] [place] [address] CARDIOLOGY DEPT. [phone] [place], [place] 0[address] (Wo rk) Social History Tobacco [...] this encounter Discharge Summaries Martha Teague S, PROJECT BUYER - 07/14/2017 9:38 AM EST Inpatient - Discharge Summary Patient Name: Gregory Hoang Patient Age: 72 y.o. Birthdate: 1945 Language: Wallisian Race: White Ethnicity: Not nor Admit Date: [...] , @ 1:20p Patient to follow-up with Lead Applier/heart failure team in one week. An appointment will be made for you. You may call [phone] Patient to follow-up with Cardiac Surgery, Dr. Yuan Webber, in ~ 4 weeks with CXR, EKG. Inpatient Provider Contact Information: [facility] Section of Cardiac Surgery [facility] [address] FAX [phone] Discharge Diagnoses (Hospital Problems) Primary Diagnoses: CAD [...] by Manny Mcknight MD at [facility] OR ??? PRO CABG, ARTERIAL, SINGLE N/A 07/07/2017 @CABG, USING ARTERIAL GRAFT;SINGLE ARTERIAL GRAFT (WRVU 33.75) performed by Yuan Webber MD at [facility] OR ??? PRO CABG, ARTERY-VEIN, TWO N/A 07/07/2017 @CABG, TWO VENOUS GRAFTS & ARTERIAL GRAFT (WRVU 7.93) performed by Yuan Webber MD at [facility] OR ??? PRO COLONOSCOPY, REMV LESN, SNARE 01/16/2014 COLONOSCOPY, POLYPECTOMY, REMOVAL LESION BY SNARE performed by Nohemi Jaimes MD at [facility] ENDOSCOPY ??? PRO ENDOSCOPY W/VIDEO-ASST VEIN HARVEST, CABG Right 07/07/2017 ENDOSCOPIC HARVEST VEIN(S) FOR CABG (WRVU 0.31) performed by Yuan Webber MD at [facility] OR ??? PRO THYROIDECTOMY 03/28/2013 THYROIDECTOMY, TOTAL OR COMPLETE performed by Manny Mcknight MD at [facility] OR Prior To Admission Medications Prescriptions Prior to Admission Medication Sig Dispense Refill Last Dose ??? levothyroxine (SYNTHROID) 175 mcg Tablet Take 1 tablet by mouth daily. 90 tablet 3 07/05/2017 [id number] ??? ascorbic acid, vitamin C, (VITAMIN C) [...] Hospital Course: Gregory Hoang was admitted to [facility] on 07/05/2017 via the Cardiology Service. During his hospital course, he was taken emergently to the pie bakery laborer for an ongoing STEMI. An IABP [...] not take or discontinue any prescription or dnvq-bvm-fscqepn medications without asking your doctor or pharmacist [...] day to have your insulin doses adjusted. [facility] Endocrine clinic office [...] Yuan Webber and/or the Cardiac Surgery Physician Fabrication Machine Operator Team may be reached at . Weight: [...] Dr. Yuan Webber. You may use a [place] Track or treadmill but avoid any pulling [...] friends, go to a movie, go to congregation, etc. Heavy activities: No hunting, skiing, jogging, snow shoveling, snowmobiling, lawn mowing, swimming, golf or tennis until after your return appointment with the surgeon. Do not ride motorcycles, [place] tractors or horses. Avoid the use of [...] , @ 1:20p Patient to follow-up with Lead Applier/heart failure team in one week. Appointment will be made for you. You may call [phone] Patient to follow-up with Cardiac Surgery, Dr. [...] 3:00 PM LAB, THREE L Lab 3L [facility] [phone] 09/07/2017 4:00 PM Luz Prescott MD Endocrinology at [place] [phone] Future Orders Complete By Expires EKG 12 Lead [EKG1 Custom] 08/14/2017 02/13/2018 Process Instructions: Scheduling Instructions: Questions: Which DH location will this be performed?: [place] Is a rhythm strip needed?: No If EKG Reason is Pre-op Evaluation, indicate diagnosis for surgery.: XR Chest PA & Lateral (Generic) [[id number] Custom] 08/14/2017 02/13/2018 Process Instructions: Scheduling Instructions: Questions: Where will study be performed?: [place] [facility] Portable exam?: Reason for exam and clinical history: CABG x 3 Other pertinent information: Stat read required?: Date of injury if applicable: Requested Time: Referral to Cardiac Rehab [[id number] Custom] As directed Process Instructions: If no progress note charted, please enter Clinical details in comments. Scheduling Instructions: Questions: My question or request is: s/p CABG. Cardiac rehab at [facility] Referral to Home Health - at DISCHARGE [BXW6864 CPT(R)] As directed Process Instructions: Scheduling Instructions: Comments: DOCUMENTATION FOR VNA SERVICES (INCLUDING THOSE PATIENTS WITH MEDICARE COVERAGE REQUIRING HOME VNA SERVICES AND/OR HOSPICE SERVICES) PATIENT'S LOCATION: Gregory Hoang [address] [place] [address] [place] [address] (home) Telephone Information: Communication Manager's Name: self In discussion with the attending physician, it is certified that this patient is under their care and that they, or a Nurse Practitioner, or Physician Fabrication Machine Operator who is working directly with them, [...] ([facility] [place] [employer] in [place] PHONE: [phone] FAX: [phone] RN orders: Cardiopulmonary assessment, incisional assessment, assess vital signs, assessment of rehab progress, medication management and effectiveness, home safety evaluation. Please draw INR if indicated and send result to:Dr Vicente [phone] PT ORDERS: Continue rehab for endurance, gait stability and strength with mobility and transfers. Home safety evaluation. Home exercise program if appropriate. Start of Care Date:24-48 hours after discharge SPECIAL INSTRUCTIONS: For any follow up questions, needs, or issues please call the Cardiac Surgery Office at [phone] FOR MEDICARE ONLY: (please delete this section [...] OR AFTER 07/17/2017 Signed: Martha Teague APRN [facility] Section of Cardiac Surgery [facility] [address] FAX [phone] Date: 07/14/2017 CC: MD Ivania Cr Betsy, PA [address] [place] [id number] documented in this encounter Discharge Instructions Discharge [...] day to have your insulin doses adjusted. [facility] Endocrine clinic office [...] not take or discontinue any prescription or zqgc-wwq-wszrdpr medications without asking your doctor or pharmacist [...] day to have your insulin doses adjusted. [facility] Endocrine clinic office [...] Yuan Webber and/or the Cardiac Surgery Physician Fabrication Machine Operator Team may be reached at . ?? [...] Dr. Yuan Webber. You may use a [place] Track or treadmill but avoid any pulling [...] friends, go to a movie, go to congregation, etc. ?? Heavy activities: No hunting, skiing, jogging, snow shoveling, snowmobiling, lawn mowing, swimming, golf or tennis until after your return appointment with the surgeon. Do not ride motorcycles, Cherrish[employer] tractors or horses. Avoid the use of [...] @ 1:20p ?? Patient to follow-up with Lead Applier/heart failure team in one week. An appointment has been made for you, you can call [phone] ?? Patient to follow-up with Cardiac Surgery, [...] 3:00 PM LAB, THREE L Lab 3L [facility] [phone] ?? 09/07/2017 4:00 PM Luz Prescott MD Endocrinology at [place] [phone] Future Orders Complete By Expires ?? EKG 12 Lead [EKG1 Custom] 08/14/2017 02/13/2018 ?? Process Instructions: ? Scheduling Instructions: ? Questions: ? Which location will this be performed?: [place] ?? Is a rhythm strip needed?: No ?? If EKG Reason is Pre-op Evaluation, indicate diagnosis for surgery.: ?? XR Chest PA & Lateral (Generic) [[id number] Custom] 08/14/2017 02/13/2018 ?? Process Instructions: ? Scheduling Instructions: ? Questions: ? Where will study be performed?: [place] [facility] ?? Portable exam?: ?? Reason for exam and clinical history: CABG x 3 ?? Other pertinent information: ?? Stat read required?: ?? Date of injury if applicable: ?? Requested Time: ?? Referral to Cardiac Rehab [[id number] Custom] As directed ? Process Instructions: ?? [...] RN - 07/14/2017 2:34 PM EST The patient/benefits representative has been provided a list of Home Health Agencies/DME vendors which serve their preferred geographic area. A letter describing our affiliations was reviewed with them and theywere educated about their right to choose where referrals are placed. Patient requests referral to [facility]. PHONE: [phone] FAX: [phone] Expected date of discharge: 07/14 Referral routed to the Se[employer]eller for matching with agency/vendor and to provide [...] day to have your insulin doses adjusted. [facility] Endocrine clinic office Kathie Carrera APRN [facility] Endocrinology Diabetes Management Pager [phone] minutes of this 35 minute visit was spent with the patient in counseling on diabetes and treatment plan, reviewing all glucose and insulin data as well as relevant laboratory results with the patient, and coordination of care on the inpatient unit including nursing and primary team. Zulma Andres RN - 07/14/2017 10:30 AM EST The patient/benefits representative has been provided a list of Home Health Agencies/DME vendors which serve their preferred geographic area. A letter describing our affiliations was reviewed with them and theywere educated about their right to choose where referrals are placed. Patient requests referral to : Yasmani Munguia ([facility] [place] [employer]-is in [place]) PHONE: [phone] FAX: [phone]. Expected date of discharge: 07/14/17 Referral routed to the Seam Feller for matching with agency/vendor and to provide [...] #6 s/p CABG X3. FSBG [place], reports no symptoms but did drink some [...] Will continue to follow Katerin Azul APRN [facility] Endocrinology Diabetes Management Pager [phone] minutes of this 25 minute visit [...] of infiltration/extravasation Discussed plan of care with MACHINE FASTENER and RN. Elevate exrtemity and apply intermittent Warm compresses. Name of MD contacted Dr. Shaw Brown 07/13/2017 @ 0655 Name of RN contacted Ale Rangel RN Name of Pharmacist if consulted NA Name of Plastics MD ( if consulted) NA (Mandatory photo for infiltrations/ extravasations scoring a stage 2 or greater, but recommended forstage 1)( include measuring tape and identifier in the photo) SENIOR MEDICAL TRANSCRIPTIONIST CARING FOR THIS PATIENT WILL CONTINUE TO [...] measuring tape and identifier in the photo) SENIOR MEDICAL TRANSCRIPTIONIST CARING FOR THIS PATIENT WILL CONTINUE TO [...] regard to both infiltrates addressed by this caption writer.All of Mr. Hoang's responses were entirely appropriate. Images of infiltrates attached here. Martha Sharp APRN - 07/13/2017 8:01 AM EST Cardiac Surgery Progress Note: ID: [id number] 72 year old male POD#6 s/p CABGx3 [...] discharge. ?? I have met with the patient/benefits representative to discuss discharge planning needs. I have provided the [facility], Office of Care Management letter from the Shipping [employer] pertaining to rehab referrals. I have also provided a letter describing our affiliations within the [facility] and educated them about their right to choose where referrals are placed. ?? I reviewed the different levels of rehab including SNF, swing, acute and LTAC with the patient/benefits representative. ?? The patient/benefits representative has been provided a list of facilities within their preferred geographic area. ?? I have requested that the patient/benefits representative provide at least three choices for referral. ?? The patient/benefits representative have requested referrals to: ?? 1. . ?? 2. [place] ?? 3. More to be entered ?? Expected date of discharge: 07/14 Note routed to [employer] who will communicate referrals to facilities and [...] hours. If BG remains greater than 240, dylujd19 units (no more than three times) & [...] hours. If BG remains greater than 240, kxjexw90 units (no more than three times) & call for new basal insulin orders. ??If less than 240 after two hours, give no insulin and resume prior schedule. Will continue to follow Katerin Azul APRN [facility] Endocrinology Diabetes Management Pager [phone] 20 minutes of this 35 minute visit was spent with the patient in counseling on diabetes and treatment plan, reviewing all glucose and insulin data as well as relevant laboratory results with the patient, and coordination of care on the inpatient unit including nursing and primary team. Makayla Stevenson APRN - 07/12/2017 9:52 AM EST Cardiac Surgery Progress Note: ID: [id number] 72 year old male POD#5 s/p CABGx3 [...] PM EST Patient arrived from [facility]. VSS. MSI dressing pulled off with [...] hours. If BG remains greater than 240, ixyrib14 units (no more than three times) & [...] AM EST Cardiac Surgery Progress Note: ID: [id number] 72 year old male POD#4 s/p CABGx3 [...] hours. If BG remains greater than 240, juzhwy11 units (no more than three times) & [...] AM EST Cardiac Surgery Progress Note: ID: [id number] 72 year old male POD#3 s/p CABGx3 [...] Gas) No results found for: PHART, PO2ART, GHN7WWA Assessment/Plan: 72 year old male POD#3 s/p [...] Mami Thao - 07/09/2017 6:29 PM EST Job Development Specialist Encounter Note Patient Name: Gregory Hoang : [id number] MR#: [id number] Admit Date: 07/05/2017 4:20 PM Hospital Day 4 days Narrative: Patient was sitting in chair, hugging heart pillow, opened his eyes, nodding to come into room Assessment: Patient was sleepy. Intervention and Outcome: Introduced gauge maker services and patient reached his hand out in appreciation. Follow-up: Job Development Specialist remains available for support. Time in [...] 07/09/2017 10:45 AM EST Report given to research staff member to cover care Maddison Cee PA - 07/09/2017 9:00 AM EST Cardiac Surgery Progress Note: ID: [id number] 72 year old male POD#2 s/p CABGx3 [...] Attending Surgeon on rounds. Signed: STEPHANIE Iqbal [facility] Section of Cardiac Surgery Date: 07/09/2017 [...] when IABP d/c'ed. Gretchen Carolina, PT Pager [phone] Maddison Cee PA - 07/08/2017 11:27 AM EST Cardiac Surgery Progress Note: ID: [id number] 72 year old male POD#1 s/p CABGx3 [...] Attending Surgeon on rounds. Signed: STEPHANIE Iqbal [facility] Section of Cardiac Surgery Date: 07/08/2017 [...] in place in R femoral. No hematoma. ASBESTOS SIDING INSTALLER- Intact Psych- Anxious Skin- Dry, no peripheral [...] 2 days ) Service: S2 ID: Gregory Haong is a 72 y.o. male with a [...] intact. IABP in place in R femoral. ASBESTOS SIDING INSTALLER- Intact Psych- Anxious Skin- Dry, no peripheral [...] note for details. DAPHNE SHAHID MD Pager [phone] Jet Mckenna MD - 07/05/2017 6:48 PM EST Preliminary Cardiac Catheterization Procedure Note: Procedure(s) performed: Left heart cath, IABP insertion Access: Right TOOL SHAPER SET UP OPERATOR-->8fr IABP A time-out was conducted prior [...] effect. Heparin gtt maintained. Pt transferred to pie bakery laborer. documented in this encounter H&P Notes Daphne Shahid MD - 07/05/2017 6:08 PM EST CARDIOLOGY HISTORY & PHYSICAL EXAM Date of Admission: 07/05/2017 ( Hospital Day 0 days ) Responsible Attending: Daphne Shahid MD PCP: Lovely Vicente MD PCP#: [phone] Patient Active Problem List Diagnosis Code ??? [...] heparin drip and transferred to [facility]. While there, continued sob, question of chest pain. Stat TTE showing WMA diffusely and EF around 20%. No significant valvular disease. Taken to the pie bakery laborer urgently for ongoing STEMI. [facility] [...] monitor I/O - s/p lasix in the pie bakery laborer, redose to aim net neg 1L [...] Medicine, PGY-2 Cardiology S1, Team Pager # [phone] CARDIOLOGY ATTENDING NOTE Patient: Gregory Hoang Date [...] amenable for PCI. DAPHNE SHAHID MD Pager [phone] documented in this encounter Miscellaneous Notes Consult Note - Daphne Shahid MD - 07/14/2017 11:46 AM EST Heart Failure Service Inpatient Consult Note Gregory Hoang Date of : 1945 Age: 72 y.o. Today's date: 07/14/17 PCP: Lovely Vicente MD CLINICAL NURSING INTERN: None Place of Service: [facility] Reason for Consult: Dr. [...] by Manny Mcknight MD at [facility] OR ??? PRO CABG, ARTERIAL, SINGLE N/A 07/07/2017 @CABG, USING ARTERIAL GRAFT;SINGLE ARTERIAL GRAFT (WRVU 33.75) performed by Yuan Webber MD at [facility] OR ??? PRO CABG, ARTERY-VEIN, TWO N/A 07/07/2017 @CABG, TWO VENOUS GRAFTS & ARTERIAL GRAFT (WRVU 7.93) performed by Yuan Webber MD at [facility] OR ??? PRO COLONOSCOPY, REMV LESN, SNARE 01/16/2014 COLONOSCOPY, POLYPECTOMY, REMOVAL LESION BY SNARE performed by Nohemi Jaimes MD at [facility] ENDOSCOPY ??? PRO ENDOSCOPY W/VIDEO-ASST VEIN HARVEST, CABG Right 07/07/2017 ENDOSCOPIC HARVEST VEIN(S) FOR CABG (WRVU 0.31) performed by Yuan Webber MD at [facility] OR ??? PRO THYROIDECTOMY 03/28/2013 THYROIDECTOMY, TOTAL OR COMPLETE performed by Manny Mcknight MD at [facility] OR Outpt Meds: Current Outpatient Prescriptions Medication [...] following studies: EKG 07/14/17: NSR 75 bpm, SPINNERET CLEANER anterior infarct, LAD CXR 07/11/17: FINDINGS: Sternotomy wires. The patient has been extubated, left chest tube removed, and Jetmore-Suzi catheter removed since the 07/07/2017 study. Atelectasis [...] was discussed with Zehra. Jaden Kelley MD Observation Nurse Pager [phone] CARDIOLOGY ATTENDING NOTE Patient: Gregory Hoang Date [...] heart failure clinic. DAPHNE SHAHID MD Pager [phone] Plan of Care - Alden Chavarria PTA [...] home with assist Alden Chavarria PTA Pager: [phone] Inpatient Physical Therapy Problem: Acute Rehab Services [...] sit/sit to supine -- Bed Mobility Goal, Saunders Level supervision required -- Bed Mobility Goal, [...] - 3 days -- Gait Training Goal, Saunders Level supervision required -- Gait Training Goal, [...] days -- Transfer Training Goal, Activity Type kmd-sq-oztab/rihss-gu-wje;wmh-hy-yypws/rkmbp-zl-opq;toilet -- Transfer Train Goal, Saunders Level supervision required -- Transfer Training Goal, [...] keeping present for 2 days per family. Cook Jelly noted of frustrations, house keeping sent to room. Patient offered showered twice, refused. at bedside, frustrated that shower not complete, informed that patient had refused several times. requesting to see MANAGER DISH, paged sent to Martha, will come to bedside (middle of consult). not willing to wait, Martha notified that family had gone home. Encouraged to come for morning rounds a t 8am. Diabetes team at bedside - insulin adjustments made. Call cabello in reach. Continue to monitor. PLAN MOVING FORWARD: Ambulate, dressing changes BID, Please change drsg at 4am per Martha MANAGER DISH request. INDIVIDUALIZED FALL PREVENTION INTERVENTIONS: Patient-specific fall [...] levels on the lower side, 60ml of Bannock juice given after a FS of 80. [...] Conf 07/13/17 0502 Interdisciplinary Rounds/Family Conf Participants keycase assembler;dietitian/nutrition services;nursing;occupational therapy;patient;pharmacy;physical therapy;physician Plan of Care - [...] monitoring required during toileting and ADLs]: RN MACHINE FASTENER Surveillance [continuous indirect monitoring]: Barrett Monitor CPG [...] Anticipated Discharge Disposition: home with assist Pager: [phone] CLARISSA SEGAL, PT 07/12/2017 Physical Therapy Rehabilitation [...] to sit/sit to supine Bed Mobility Goal, Saunders Level supervision required Bed Mobility Goal, Additional Goal adheres to psternal precautions for transfer Goal: Gait Training Goal Stand Alone Therapy Goal Outcome: Ongoing (Interventions Implemented as Appropriate) 07/12/17 1225 Gait Training Goal Gait Training Goal, Date Established 07/12/17 Gait Training Goal, Time to Achieve 2 - 3 days Gait Training Goal, Saunders Level supervision required Gait Training Goal, Assist [...] 3 days Transfer Training Goal, Activity Type xug-mw-oakro/lofav-tb-uwv;anl-tp-frqlp/lbmbg-gq-vcg;toilet Transfer Train Goal, Saunders Level supervision required Transfer Training Goal, Additional Goal adheres to sternal precautions during transfer Consult Note - Octavia Vaughn RN - 07/12/2017 10:50 AM EST [facility] CARDIAC REHABILITATION Gregory [...] IV site, amio to other piv and CHERRY DIPPER at bedside to help assess, IV removed. [...] staff, he stood and marched in place. Emerson weak, wanting to sit back down. Remained [...] Health/Prescription Coverage: Primary Insurance: MEDICARE Secondary Insurance: [employer] [place] Prescription Coverage: yes Preferred Pharmacy: [facility] Other: none Primary Care Provider: Lovely Vicente MD [phone] Patient/Caregiver Goals of Treatment:live and get my breath back Potential Needs for Transition of Care: Rehab/SNF: [facility] Home Health: NA DME: TBD Dialysis: na Community Resources: available Transportation: yes Other: none Anticipated Barriers to Discharge/Special Considerations: none Plan: Likely SNF Rehab before home A member of the Care Management team will continue to monitor progress, follow for continuity of care and assist with transition of care planning. ERLIN Weiss Pager: [phone] Consult Note - Katerin Azul RN - [...] management and to provide a review of penitentiary diabetes care. Diabetes History: Gregory Hoang has [...] to d/c gtt and start CF. terminal block assembler diabetes care: Medications - Outpatient treatment regimen recommendations pending based on the hospital course. Monitoring - continue BG tid ac & hs Diet - low fat/low carb diet Exercise - weight-bearing exercise 30 min/day, as tolerated Thank you for allowing us to provide care for your patient W/E coverage, Dr. Jeane Tatum, pager [phone] Katerin Azul APRN Endocrinology Diabetes Management Pager [phone] Plan of Care - Stephanie Godoy, RN [...] Webber MD - 07/07/2017 6:27 PM EST [facility] Operative Note Patient Name: Gregory Hoang : [id number] MR#: [id number] Case Date: 07/07/2017 Surgeon: Surgeon(s) and Role: * Yuan Webber MD - Primary * Michael Drake PA - Physician Fabrication Machine Operator * Linda Flores PA - Physician Fabrication Machine Operator Preoperative diagnosis: 3VD Postoperative diagnosis: CAD, severe [...] Operative Note Patient Name: Gregory Hoang : [id number] MR#: [id number] Case Date: 07/07/2017 Surgeon: Surgeon(s) and Role: * Yuan Webber MD - Primary * Michael Drake PA - Physician Fabrication Machine Operator * Linda Flores PA - Physician Fabrication Machine Operator Preoperative diagnosis: 3VD Postoperative diagnosis: CAD, severe [...] (reference Cardiac: ACS (Acute Coronary Syndrome) (Adult) [facility] 07/07/17621 Cardiac: ACS (Acute Coronary [...] Hahn, MS3 [employer] [facility] Cardiology S1 (Pager [phone]) Plan of Care - Emelia Ibarra RN [...] with other involved physicians Yuan Webber MD [phone] Med Student Progress Note - Katty Hahn [...] or BiPAP - s/p lasix in the pie bakery laborer, was net -1.5L - s/p plavix [...] insulin drip - hold metformin - f/u [facility] ?? #Home Meds - continue levothyroxine 175mcg - CPAP at night ?? # Routine - DVT PPx: heparin drip - Diet: Healthy heart diet, NPO at midnight for CABG tomorrow - Code Status: FULL - Dispo: CVCC Katty Hahn, M3 [facility] Cardiology S1 (Pager [phone]) Plan of Care - Stephanie Godoy RN - 07/06/2017 5:00 AM EST Problem: Patient Care Overview Goal: Plan of Care Review 07/06/17 8386 Coping/Psychosocial Plan Of Care Reviewed With patient;family [...] in urinal without difficulty. Lasix given in pie bakery laborer, 1.4 L out at this time. [...] Outcome: Ongoing (Interventions Implemented as Appropriate) 07/06/17 4336 Cardiac: ACS (Acute Coronary Syndrome) Problems Assessed [...] Visit Cardiology Vitaliy Nobles MD [facility] CARDIOLOGY [place] 0375 (Wo rk) Scheduled Orders Name Type [...] procedure are i n the results section. SOLUTION DESIGN ENGINEER SCAN 07/15/2017 12:00 Res ults for this [...] Routine 07/08/2017 4:00 Results f or this ([facility]) AM EST procedure [...] Routine 07/07/2017 5:15 Results f or this ([facility]) AM EST procedure [...] Routine 07/06/2017 7:40 Results f or this ([facility]) PM EST procedure [...] section. TYPE AND SCREEN Routine 07/06/2017 12:00 ([facility]/SHANDA) PM EST APTT [...] Routine 07/06/2017 8:10 Results f or this ([facility]) AM EST procedure [...] Routine 07/06/2017 2:20 Results f or this ([facility]) AM EST procedure [...] Routine 07/05/2017 8:20 Results f or this ([facility]) PM EST procedure [...] Timed 07/05/2017 4:55 Results f or this ([facility]) PM EST procedure [...] EXAMINATION: XR CHEST PA AND LATERAL (GE [employer]) CLINICAL HISTORY: CABG x 3 TECHNIQUE: PA [...] Nuñezshawanda QUINONES IMG DX ORDERABLES SCAN DOC: SOLUTION DESIGN ENGINEER (07/15/2017 12:00 AM EST) Narrative 07/15/2017 12:00 [...] Signature POC Glucose 186 65 - 199 [facility] Comment: [...] Address City/State/[place] [address] POCT Glucose (07/14/2017 7:52 AM EST) athologist Signature POC Glucose 126 65 - 199 [facility] mg[facility]dL [facility] Comment: [...] Address City/State/[place] [address] (ABNORMAL) Prothrombin Time (07/14/2017 4:46 AM EST) athologist Signature PT 26.4 (H) 11.8 - 14.0 [facility] LABORATORY INR 2.4 (H) 0.9 - 1.1 [facility] [...] Wilson STACIE HEMATOLOGY ORDERABLES Performing Organization Address City/[facility]/ZIP Code Phon e Number [address] Potassium (07/14/2017 4:46 AM EST) athologist Signature Potassium 4.3 3.5 - 5.0 [facility] mmol/L [facility] Comment: Please note: ??Patients [...] Address City/State/[place] [address] POCT Glucose (07/14/2017 4:34 AM EST) athologist Signature POC Glucose 115 65 - 199 [facility] mg/dL [facility] LAB[facility]ORY [...] Address City/State/ZIP Code Phon e Number [address] POCT Glucose (07/13/2017 11:33 PM EST) athologist Signature POC Glucose 132 65 - 199 [place] mg/dL [facility] Comment: Supplemental ranges: <140 mg/dL before meals <180 mg/dL all other times of the day Specimen Anatomical Collection Method Collection Time Receive d Time (Source) Location / / Volume Laterality Blood specimen 07/13/2017 11:33 7 (specimen) PM EST 11:33 PM EST Yuan Webber MD POINT OF CARE TEST ORDERABLE S Performing Organization Address City/[facility]/ZIP Code Phon e Number [address] POCT Glucose (07/13/2017 9:25 PM EST) athologist Signature POC Glucose 121 65 - 199 [place] [facility] mg/dL [facility] Comment: Supplemental ranges: <140 mg/dL before meals <180 mg/dL all other times of the day Specimen Anatomical Collection Method Collection Time Receive d Time (Source) Location / / Volume Laterality Blood specimen 07/13/2017 9:25 PM 017 9:25 (specimen) EST PM EST Yuan Webber MD POINT OF CARE TEST ORDERABLE S Performing Organization Address City/[facility]/[place] [address] POCT Glucose (07/13/2017 4:55 PM EST) athologist Signature POC Glucose 79 65 - 199 [place] mg/dL [facility] Comment: [...] Address City/State/[place] [address] POCT Glucose (07/13/2017 11:16 AM EST) athologist Signature POC Glucose 163 65 - 199 [facility] Comment: [...] Address City/State/ZIP Code Phon e Number [address] POCT Glucose (07/13/2017 8:07 AM EST) athologist Signature POC Glucose 96 65 - 199 [facility] Comment: [...] Address City/State/[place] [address] (ABNORMAL) Prothrombin Time (07/13/2017 4:26 AM EST) athologist Signature PT 20.8 (H) 11.8 - 14.0 [facility] LABORATORY INR 1.8 (H) 0.9 - 1.1 [facility] [...] Organization Address City/State/ZIP [place] [address] (ABNORMAL) Basic Metabolic Panel (non-fasting) (07/13/2017 4:26 AM EST) athologist Signature Glucose Lvl 95 65 - 199 [facility] mg/dL [facility] Comment: Diabetes: >=200 mg/dL plus symp toms BUN 25 (H) 10 - 20 mg/dL [facility] Creatinine 1.19 0.80 - 1.50 mg/dL [facility] Sodium 143 135 - 145 mmol/L [facility]OR[facility]ORY Potassium 3.7 3.5 - 5.0 mmol/L [facility] Comment: Please note: ??Patients with WBC >100,00 0 may have falsely elevated Potassium levels. ??For accurate Potassium quantif ication in these patients send serum separator tube (gold top) for subsequent determinations. ??Contact the Clinical Chemistry Laboratory if there are any qu estions. Chloride 104 98 - 107 mmol/L [facility] CO2 26 22 - 31 mmol/L [facility] Anion Gap 13 5 - 15 mmol/L [facility] Calcium 7.7 (L) 8.5 - 10.5 mg/dL [facility] Estimated GFR 60 >=60 [facility] Comment: The reported eGFR should be multiplied b y 1.2 for patients. The MDRD is not an appropriate measure o f renal function for patients with body mass extremes or in patients with acute kidney failure. http://[email or web address]/DHnkdep http://X-IO/DHMCnkf Specimen Anatomical Collection Method Collection Time Receive d Time (Source) Location / / Volume Laterality Blood specimen 07/13/2017 4:26 AM 017 4:46 (specimen) EST AM EST Resulting Agency Comment Spec In Lab Makayla Wilson APRN CHEMISTRY ORDERABLES Performing Organization Address City/State/ZIP Code Phon e Number [address] POCT Glucose (07/13/2017 3:52 AM EST) athologist Signature POC Glucose 93 65 - 199 [place] mg/dL [facility] Comment: Supplemental ranges: <140 mg/dL before meals <180 mg/dL all other times of the day Specimen Anatomical Collection Method Collection Time Receive d Time (Source) Location / / Volume Laterality Blood specimen 07/13/2017 3:52 AM 017 3:52 (specimen) EST AM EST Yuan Webber MD POINT OF CARE TEST ORDERABLE S Performing Organization Address City/[facility]/[place] [address] POCT Glucose (07/13/2017 12:21 AM EST) athologist Signature POC Glucose 80 65 - 199 [facility] mg/dL [facility] Comment: [...] Address City/State/ZIP Code Phon e Number [address] POCT Glucose (07/12/2017 8:22 PM EST) athologist Signature POC Glucose 119 65 - 199 [facility] mg/dL [facility] Comment: [...] Address City/State/ZIP Code Phon e Number [address] POCT Glucose (07/12/2017 4:02 PM EST) athologist Signature POC Glucose 114 65 - 199 [place] mg/dL [facility] Comment: Supplemental ranges: <140 mg/dL before meals <180 mg/dL all other times of the day Specimen Anatomical Collection Method Collection Time Receive d Time (Source) Location / / Volume Laterality Blood specimen 07/12/2017 4:02 PM 017 4:02 (specimen) EST PM EST Yuan Webber MD POINT OF CARE TEST ORDERABLE S Performing Organization Address City/[facility]/ZIP Code Phon e Number [address] POCT Glucose (07/12/2017 11:28 AM EST) athologist Signature POC Glucose 164 65 - 199 [place] mg/dL [facility] Comment: [...] Address City/State/[place] [address] POCT Glucose (07/12/2017 7:34 AM EST) athologist Signature POC Glucose 109 65 - 199 [place] mg/dL [facility] Comment: [...] Organization Address City/State/ZIP [place] [address] (ABNORMAL) Basic Metabolic Panel (non-fasting) (07/12/2017 4:11 AM EST) P athologist Signature Glucose Lvl 92 65 - 199 [facility] mg/dL [facility] Comment: Diabetes: >=200 mg/dL plus symp toms BUN 31 (H) 10 - 20 mg/dL [facility] Creatinine 1.23 0.80 - 1.50 mg/dL [facility] Sodium 145 135 - 145 mmol/L [facility] Potassium Not Perf 3.5 - 5.0 mmol/L [facility] Comment: Duplicate order Please note: ??Patients with WBC >100,00 0 may have falsely elevated Potassium levels. ??For accurate Potassium quantif ication in these patients send serum separator tube (gold top) for subsequent determinations. ??Contact the Clinical Chemistry Laboratory if there are any qu estions. Chloride 106 98 - 107 mmol/L [facility] CO2 Not Perf 22 - 31 mmol/L [facility] Comment: Add-on request. Sample too old to perform test. Anion Gap Not Calculated 5 - 15 mmol/L [facility] Calcium 8.1 (L) 8.5 - 10.5 mg/dL [facility] Estimated GFR 58 (L) >=60 [facility] Comment: The reported eGFR should be multiplied b y 1.2 for patients. The MDRD is not an appropriate measure o f renal function for patients with body mass extremes or in patients with acute kidney failure. http://[employer]Mobitto/DHnkdep http://X-IO/DHMCnkf Specimen Anatomical Collection Method Collection Time Receive d Time (Source) Location / / Volume Laterality Blood specimen 07/12/2017 4:11 AM 017 8:57 (specimen) EST AM EST Resulting Agency Comment Spec In Lab Makayla Wilson APRN CHEMISTRY ORDERABLES Performing Organization Address City/State/[place] [address] (ABNORMAL) Prothrombin Time (07/12/2017 4:11 AM EST) P athologist Signature PT 15.4 (H) 11.8 - 14.0 [facility] LABORATORY INR 1.2 (H) 0.9 - 1.1 [facility] [...] Resulting Agency Comment Spec In Lab Makayla [facility] HEMATOLOGY ORDERABLES Performing Organization Address City/[facility]/[place] [address] Potassium (07/12/2017 4:11 AM EST) P athologist Signature Potassium 3.8 3.5 - 5.0 [facility] mmol/L [facility] Comment: Please note: ??Patients [...] Resulting Agency Comment Spec In [facility] Performing Organization Address City/State/[place] [address] POCT Glucose (07/12/2017 4:10 AM EST) athologist Signature POC Glucose 90 65 - 199 [place] mg/dL [facility] Comment: [...] Address City/State/[place] [address] POCT Glucose (07/11/2017 11:57 PM EST) athologist Signature POC Glucose 98 65 - 199 [facility] mg/dL [facility] Comment: Supplemental ranges: <140 mg/dL before meals <180 mg/dL all other times of the day Specimen Anatomical Collection Method Collection Time Receive d Time (Source) Location / / Volume Laterality Blood specimen 07/11/2017 11:57 7 (specimen) PM EST 11:57 PM EST Yuan Webber MD POINT OF CARE TEST ORDERABLE S Performing Organization Address City/[facility]/[place] [address] POCT Glucose (07/11/2017 8:32 PM EST) athologist Signature POC Glucose 146 65 - 199 [place] mg/dL [facility] Comment: [...] Address City/State/[place] [address] XR Chest PA & [...] e xtubated, left chest tube removed, and Jetmore-Suzi catheter removed since the study. Atelectasis at [...] e xtubated, left chest tube removed, and Jetmore-Suzi catheter removed since the study. Atelectasis at [...] POC Glucose 223 (H) 65 - 199 [facility] mg/dL [facility] [...] Address City/State/ZIP Code Phon e Number [address] POCT Glucose (07/11/2017 11:55 AM EST) P athologist Signature POC Glucose 176 65 - 199 [place] mg/dL [facility] Comment: [...] Address City/State/[place] [address] POCT Glucose (07/11/2017 7:53 AM EST) athologist Signature POC Glucose 189 65 - 199 [place] mg/dL [facility] Comment: [...] Address City/State/ZIP Code Phon e Number [address] POCT Glucose (07/11/2017 4:22 AM EST) athologist Signature POC Glucose 151 65 - 199 [place] mg/dL [facility] Comment: Supplemental ranges: <140 mg/dL before meals <180 mg/dL all other times of the day Specimen Anatomical Collection Method Collection Time Receive d Time (Source) Location / / Volume Laterality Blood specimen 07/11/2017 4:22 AM 017 4:22 (specimen) EST AM EST Yuan Webber MD POINT OF CARE TEST ORDERABLE S Performing Organization Address City/[facility]/ZIP Code Phon e Number [address] Potassium (07/11/2017 2:20 AM EST) athologist Signature Potassium 4.5 3.5 - 5.0 [facility] mmol/L [facility] Comment: Please note: ??Patients [...] Webber MD CHEMISTRY ORDERABLES Performing Organization Address City/[facility]/[place] [address] POCT Glucose (07/11/2017 12:17 AM EST) athologist Signature POC Glucose 162 65 - 199 [facility] Comment: Supplemental ranges: <140 mg/dL before meals <180 mg/dL all other times of the day Specimen Anatomical Collection Method Collection Time Receive d Time (Source) Location / / Volume Laterality Blood specimen 07/11/2017 12:17 7 (specimen) AM EST 12:17 AM EST Yuan Webber MD POINT OF CARE TEST ORDERABLE S Performing Organization Address City/[facility]/[place] [address] POCT Glucose (07/10/2017 8:47 PM EST) athologist Signature POC Glucose 191 65 - 199 [facility] Comment: [...] Address City/State/[place] [address] POCT Glucose (07/10/2017 4:06 PM EST) athologist Signature POC Glucose 131 65 - 199 [place] mg/dL [facility] Comment: [...] Address City/State/ZIP Code Phon e Number [address] POCT Glucose (07/10/2017 3:08 PM EST) athologist Signature POC Glucose 151 65 - 199 [place] mg/dL [facility] Comment: [...] Address City/State/ZIP Code Phon e Number [address] POCT Glucose (07/10/2017 2:25 PM EST) athologist Signature POC Glucose 146 65 - 199 [facility] mg/dL [facility] Comment: [...] Address City/State/ZIP Code Phon e Number [address] POCT Glucose (07/10/2017 1:23 PM EST) athologist Signature POC Glucose 166 65 - 199 [place] mg/dL [facility] Comment: Supplemental ranges: <140 mg/dL before meals <180 mg/dL all other times of the day Specimen Anatomical Collection Method Collection Time Receive d Time (Source) Location / / Volume Laterality Blood specimen 07/10/2017 1:23 PM 017 1:23 (specimen) EST PM EST Yuan Webber MD POINT OF CARE TEST ORDERABLE S Performing Organization Address City/[facility]/[place] [address] POCT Glucose (07/10/2017 11:52 AM EST) athologist Signature POC Glucose 157 65 - 199 [place] mg/dL [facility] Comment: [...] Address City/State/[place] [address] POCT Glucose (07/10/2017 11:01 AM EST) athologist Signature POC Glucose 158 65 - 199 [facility] mg/dL [facility] Comment: [...] Address City/State/ZIP Code Phon e Number [address] POCT Glucose (07/10/2017 9:54 AM EST) athologist Signature POC Glucose 160 65 - 199 [place] mg/dL [facility] Comment: Supplemental ranges: <140 mg/dL before meals <180 mg/dL all other times of the day Specimen Anatomical Collection Method Collection Time Receive d Time (Source) Location / / Volume Laterality Blood specimen 07/10/2017 9:54 AM 017 9:54 (specimen) EST AM EST Yuan Webber MD POINT OF CARE TEST ORDERABLE S Performing Organization Address City/[facility]/ZIP Code Phon e Number [address] POCT Glucose (07/10/2017 8:58 AM EST) athologist Signature POC Glucose 183 65 - 199 [place] mg/dL [facility] Comment: Supplemental ranges: <140 mg/dL before meals <180 mg/dL all other times of the day Specimen Anatomical Collection Method Collection Time Receive d Time (Source) Location / / Volume Laterality Blood specimen 07/10/2017 8:58 AM 017 8:58 (specimen) EST AM EST Yuan Webber MD POINT OF CARE TEST ORDERABLE S Performing Organization Address City/[facility]/[place] [address] POCT Glucose (07/10/2017 8:01 AM EST) athologist Signature POC Glucose 173 65 - 199 [place] mg/dL [facility] Comment: [...] Address City/State/ZIP Code Phon e Number [address] POCT Glucose (07/10/2017 7:05 AM EST) athologist Signature POC Glucose 166 65 - 199 [facility] Comment: [...] Address City/State/ZIP Code Phon e Number [address] POCT Glucose (07/10/2017 6:00 AM EST) athologist Signature POC Glucose 162 65 - 199 [facility] Comment: [...] Address City/State/ZIP Code Phon e Number [address] (ABNORMAL) Differential, Automated (07/10/2017 4:28 AM EST) Patholo gist Method Time Signature Neutrophils % 87.9 % [facility] LABORATORY Neutr Abs (ANC) 10.70 (H) 1.70 - [facility] 6.10 [facility] x10(3)/[facility] L LABORATORY Lymphocytes % 3.9 % [facility] LABOR[facility]ORY Lymphocytes Abs 0.5 (L) 0.9 - 3.2 [facility] x10(3)/[facility] LABORATORY Monocytes % 7.0 % [facility] LABOR[facility]ORY Monocyte Abs 0.8 0.3 - 0.9 [facility] x10(3)/[facility] LABORATORY Eosinophils % 0.3 % [facility]OR[facility]ORY Eosinophils Abs 0.0 0.0 - 0.4 [facility] x10(3)/[facility] LABORATORY Basophils % 0.2 % [facility] LABOR[facility]ORY Basophils Abs 0.0 0.0 - 0.1 [facility] x10(3)/[facility] LABORATORY Immature Gran % 0.70 % [facility] Comment: Immature [...] Organization Address City/State/ZIP [place] [address] (ABNORMAL) Hemogram (07/10/2017 4:28 AM EST) Analysis Performed At Patho logist Time Signature WBC 12.2 (H) 4.0 - 9.5 [facility] x10(3)/[facility] LABORATORY RBC 3.31 (L) 4.58 - [facility] 5.54 [facility] x10(6)/[facility] LABORATORY Hemoglobin 9.8 (L) 13.7 - [facility] 16.5 gm/dL [facility]ORY Hematocrit 30.0 (L) 40.5 - [facility] 48.5 % [facility] MCV 90.6 82.9 - [facility] fL [facility] MCH 29.6 27.5 - [facility] 32.1 pg [facility] LAB[facility]ORY MCHC 32.7 32.0 - [facility] 35.7 gm/dL [facility] LABOR[facility]ORY Platelets 135 (L) 145 - 357 [facility] x10(3)/[facility] LABORATORY RDWSD 50.8 (H) 36.0 - [facility] 45.0 [facility] LABORATORY RDWCV 15.4 (H) 11.4 - [facility] 13.8 % [facility] LABORATORY MPV 10.0 7.6 - 12.9 [facility] LABORATORY nRBC % Auto 0.0 % [facility] LABORATORY nRBC Abs Auto 0.000 0.000 - [facility] 0.000 [facility] x10(3)/[facility] LABORATORY Specimen Anatomical Collection Method Collection Time Receive d Time (Source) Location / / Volume Laterality Blood specimen 07/10/2017 4:28 AM 017 4:36 (specimen) EST AM EST Resulting Agency Comment Spec In Lab Yuan Webber MD HEMATOLOGY ORDERABLES Performing Organization Address City/State/ZIP [place] [address] (ABNORMAL) Basic Metabolic Panel (non-fasting) (07/10/2017 4:28 AM EST) P athologist Signature Glucose Lvl 178 65 - 199 [facility] mg/dL [facility] Comment: Diabetes: >=200 mg/dL plus symp toms BUN 20 10 - 20 mg/dL [facility] LABORATORY Creatinine 1.19 0.80 - 1.50 [...] estions. Chloride 107 98 - 107 mmol/L [facility]OR[facility]ORY CO2 21 (L) 22 - 31 mmol/L [facility] Anion Gap 15 5 - 15 mmol/L [facility]OR[facility]ORY Calcium 7.4 (L) 8.5 - 10.5 mg/dL [facility] LABORATORY Estimated GFR 60 >=60 [facility] Comment: The reported eGFR should be multiplied b y 1.2 for patients. The MDRD is not an appropriate measure o f renal function for patients with body mass extremes or in patients with acute kidney failure. http://[employer]/DHnkdep http://[employer]/DHMCnkf Specimen Anatomical Collection Method Collection Time Receive d Time (Source) Location / / Volume Laterality Blood specimen 07/10/2017 4:28 AM 017 4:36 (specimen) EST AM EST Resulting Agency Comment Spec In Lab Yuan Webber MD CHEMISTRY ORDERABLES Performing Organization Address City/State/ZIP Code Phon e Number [address] POCT Glucose (07/10/2017 4:26 AM EST) athologist Signature POC Glucose 176 65 - 199 [facility] Comment: [...] Address City/State/[place] [address] (ABNORMAL) POCT Glucose (07/10/2017 3:06 AM EST) athologist Signature POC Glucose 204 (H) 65 - 199 [facility] mg/[facility] Comment: Supplemental ranges: <140 mg/dL before meals <180 mg/dL all other times of the day Specimen Anatomical Collection Method Collection Time Receive d Time (Source) Location / / Volume Laterality Blood specimen 07/10/2017 3:06 AM 017 3:06 (specimen) EST AM EST Yuan Webber MD POINT OF CARE TEST ORDERABLE S Performing Organization Address City/[facility]/[place] [address] (ABNORMAL) POCT Glucose (07/10/2017 2:10 AM EST) P athologist Signature POC Glucose 203 (H) 65 - 199 [place] RY[place] mg/dL [facility] Comment: Supplemental ranges: <140 mg/dL before meals <180 mg/dL all other times of the day Specimen Anatomical Collection Method Collection Time Receive d Time (Source) Location / / Volume Laterality Blood specimen 07/10/2017 2:10 AM 017 2:10 (specimen) EST AM EST Yuan Webber MD POINT OF CARE TEST ORDERABLE S Performing Organization Address City/[facility]/[place] [address] POCT Glucose (07/10/2017 1:09 AM EST) P athologist Signature POC Glucose 196 65 - 199 [place] RYAN mg/dL [facility] Comment: [...] Address City/State/[place] [address] POCT Glucose (07/10/2017 12:10 AM EST) P athologist Signature POC Glucose 173 65 - 199 K[place]INA ZHAORYAN mg/dL [facility] Comment: [...] Address City/State/ZIP Code Phon e Number [address] POCT Glucose (07/09/2017 11:01 PM EST) P athologist Signature POC Glucose 140 65 - 199 [place] RYAN mg/dL [facility] Comment: [...] Address City/State/[place] [address] POCT Glucose (07/09/2017 10:05 PM EST) athologist Signature POC Glucose 144 65 - 199 [place] RYAN mg/dL [facility] Comment: [...] Address City/State/[place] [address] POCT Glucose (07/09/2017 9:31 PM EST) athologist Signature POC Glucose 121 65 - 199 [facility] RYAN mg/dL [facility] Comment: [...] Address City/State/ZIP Code Phon e Number [address] POCT Glucose (07/09/2017 9:03 PM EST) athologist Signature POC Glucose 98 65 - 199 [place] ZHAORYAN mg/dL [facility] Comment: Supplemental ranges: <140 mg/dL before meals <180 mg/dL all other times of the day Specimen Anatomical Collection Method Collection Time Receive d Time (Source) Location / / Volume Laterality Blood specimen 07/09/2017 9:03 PM 017 9:03 (specimen) EST PM EST Yuan Webber MD POINT OF CARE TEST ORDERABLE S Performing Organization Address City/[facility]/ZIP Code Phon e Number [address] POCT Glucose (07/09/2017 8:09 PM EST) athologist Signature POC Glucose 117 65 - 199 [place] RYAN mg/dL [facility] Comment: [...] Address City/State/[place] [address] POCT Glucose (07/09/2017 5:40 PM EST) athologist Signature POC Glucose 155 65 - 199 [place] RYAN mg/dL [facility] Comment: [...] Address City/State/ZIP Code Phon e Number [address] POCT Glucose (07/09/2017 4:24 PM EST) athologist Signature POC Glucose 164 65 - 199 [place] ZHAORYAN mg/dL [facility] Comment: Supplemental ranges: <140 mg/dL before meals <180 mg/dL all other times of the day Specimen Anatomical Collection Method Collection Time Receive d Time (Source) Location / / Volume Laterality Blood specimen 07/09/2017 4:24 PM 017 4:24 (specimen) EST PM EST Yuan Webber MD POINT OF CARE TEST ORDERABLE S Performing Organization Address City/[facility]/ZIP Code Phon e Number [address] POCT Glucose (07/09/2017 3:19 PM EST) athologist Signature POC Glucose 166 65 - 199 [place]INA ZHAORYAN mg/dL [facility] Comment: Supplemental ranges: <140 mg/dL before meals <180 mg/dL all other times of the day Specimen Anatomical Collection Method Collection Time Receive d Time (Source) Location / / Volume Laterality Blood specimen 07/09/2017 3:19 PM 017 3:19 (specimen) EST PM EST Yuan Webber MD POINT OF CARE TEST ORDERABLE S Performing Organization Address City/[facility]/ZIP Code Phon e Number [address] POCT Glucose (07/09/2017 2:26 PM EST) athologist Signature POC Glucose 179 65 - 199 [place] RYAN mg/dL [facility] Comment: [...] Address City/State/[place] [address] (ABNORMAL) POCT Glucose (07/09/2017 1:29 PM EST) athologist Signature POC Glucose 210 (H) 65 - 199 [place] RYAN mg/dL [facility] Comment: [...] Address City/State/ZIP [place] [address] POCT Glucose (07/09/2017 12:20 PM EST) athologist Signature POC Glucose 172 65 - 199 [place] RYAN mg/dL [facility] Comment: [...] City/State/ZIP Code [place] [address] POCT Glucose (07/09/2017 11:24 AM EST) athologist Signature POC Glucose 156 65 - 199 [place] RYAN mg/dL [facility] Comment: [...] Address City/State/ZIP Code Phon e Number [address] POCT Glucose (07/09/2017 11:11 AM EST) P athologist Signature POC Glucose 172 65 - 199 [facility] RYAN mg/dL [facility] Comment: [...] Address City/State/ZIP Code Phon e Number [address] POCT Glucose (07/09/2017 10:08 AM EST) athologist Signature POC Glucose 176 65 - 199 [facility] Comment: [...] City/State/ZIP Code Phon e Number [place] [id number] POCT Glucose (07/09/2017 8:02 AM EST) athologist Signature POC Glucose 178 65 - 199 [facility] RYAN mg/dL [facility] Comment: [...] Organization Address City/State/ZIP [place] [address] (ABNORMAL) BLOOD GAS 2 ARTERIAL (07/09/2017 5:37 AM EST) Analysis Performed At Patho logist Time Signature pH Art 7.36 7.35 - [facility] 7.45 [facility] pCO2 Art 38 35 - 45 [facility] mmHg [facility] pO2 Art 79 (L) 85 - 104 [facility] mmHg [facility] HCO3 Art 20.9 20.0 - [facility] 26.0 [facility] mmol/L [facility] LABORATORY BE Art -4.6 (L) -3.0 - 3.0 [facility] mmol/L [facility] Hgb Blood Gas 10.5 (L) 13.7 - [facility] 16.5 gm/dL [facility] O2HB Art 93.8 (L) 94.0 - [facility] 97.0 % [facility] COHB Art 0.3 % [facility] Comment: Nonsmokers: 0.5-1.5% COHB Smokers: Variable, but usually less than 10% Toxic: 20-30% COHB Lethal: Greater than 60% COHB METHB Art 0.6 <=1.5 % [facility] LABORATORY Na Whole Blood 141 135 - 145 mmol/L [facility] K Whole Blood 4.5 3.5 - 5.0 mmol/L [facility] Comment: Please note: Patients with WBC >100,000 may have falsely elevated Potassium levels. Contact the Clinical Chemistry L aboratory if there are any questions. ICa Whole Blood 1.01 (L) 1.15 - 1.33 mmol/L [facility]OR[facility] Comment: Note: ??Total bilirubin higher than 20 m g/dL may lead to falsely low ionized calcium. CL Whole Blood 113 (H) 98 - 107 mmol/L [facility] LABORATORY Gluc Whole Bld 175 65 - 199 mg/dL [facility] Comment: Diabetes: >=200 mg/dL plus symp toms. Lactate WB 1.0 0.5 - 2.2 mmol/L [facility] LABORATORY FIO2 Art 40 % [facility] PF Ratio Art 198 [facility] LABORATORY Specimen Anatomical Collection Method Collection Time Receive d Time (Source) Location / / Volume Laterality Blood specimen 07/09/2017 5:37 AM 017 5:37 (specimen) EST AM EST Yuan Webber MD CHEMISTRY ORDERABLES Performing Organization Address City/[facility]/ZIP Code Phon e Number [address] POCT Glucose (07/09/2017 3:27 AM EST) athologist Signature POC Glucose 192 65 - 199 [facility] Comment: Supplemental ranges: <140 mg/dL before meals <180 mg/dL all other times of the day Specimen Anatomical Collection Method Collection Time Receive d Time (Source) Location / / Volume Laterality Blood specimen 07/09/2017 3:27 AM 017 3:27 (specimen) EST AM EST Yuan Webber MD POINT OF CARE TEST ORDERABLE S Performing Organization Address City/[facility]/[place] [address] (ABNORMAL) Basic Metabolic Panel (non-fasting) (07/09/2017 2:30 AM EST) athologist Signature Glucose Lvl 179 65 - 199 [facility] Comment: Diabetes: >=200 mg/dL plus symp toms BUN 17 10 - 20 mg/dL [facility] Creatinine 1.34 0.80 - 1.50 mg/dL [facility] LABOR[facility]ORY Sodium 144 135 - 145 mmol/L [facility] LABORATORY Potassium Not Perf 3.5 - 5.0 mmol/L [facility] Comment: Duplicate order Please note: ??Patients with WBC >100,00 0 may have falsely elevated Potassium levels. ??For accurate Potassium quantif ication in these patients send serum separator tube (gold top) for subsequent determinations. ??Contact the Clinical Chemistry Laboratory if there are any qu estions. Chloride 111 (H) 98 - 107 mmol/L [facility] CO2 21 (L) 22 - 31 mmol/L [facility] Anion Gap 12 5 - 15 mmol/L [facility] Calcium 7.1 (L) 8.5 - 10.5 mg/dL [facility]ORATORY Comment: result rechecked-JLK Estimated GFR 53 (L) >=60 [facility] Comment: The reported eGFR should be multiplied b y 1.2 for patients. The MDRD is not an appropriate measure o f renal function for patients with body mass extremes or in patients with acute kidney failure. http://[email or web address]/DHnkdep http://[email or web address]/DHMCnkf Specimen Anatomical Collection Method Collection Time Receive d Time (Source) Location / / Volume Laterality Blood specimen Venous Draw / 07/09/2017 2:30 AM 2016 2:42 (specimen) Unknown EST AM EST Resulting Agency Comment Spec In Lab Yuan Webber MD CHEMISTRY ORDERABLES Performing Organization Address City/[facility]/[place] [address] (ABNORMAL) Potassium (07/09/2017 2:30 AM EST) P athologist Signature Potassium 5.1 (H) 3.5 - 5.0 [facility] mmol/L [facility] Comment: Please note: ??Patients [...] Webber MD CHEMISTRY ORDERABLES Performing Organization Address City/[facility]/ZIP [facility] [place] [place] [address] (ABNORMAL) Hemogram (07/09/2017 2:30 AM EST) Analysis Performed At Patho logist Time Signature WBC 12.5 (H) 4.0 - 9.5 [facility] x10(3)/[facility] LABORATORY RBC 3.38 (L) 4.58 - [place] 5.54 [facility] x10(6)/[facility] LABORATORY Hemoglobin 10.1 (L) 13.7 - [place] ZHAORYAN 16.5 gm/dL [facility] Hematocrit 30.3 (L) 40.5 - [place] 48.5 % [facility] MCV 89.6 82.9 - [facility] 93.1 [facility] LABORATORY MCH 29.9 27.5 - [place] ZHAORYAN 32.1 pg [facility] LABORATORY MCHC 33.3 32.0 - [place] ZHAORY[place] 35.7 gm/dL [facility] Platelets 127 (L) 145 - 357 [facility] x10(3)/[facility] LABORATORY RDWSD 49.3 (H) 36.0 - [facility] 45.0 [facility] LABORATORY RDWCV 15.2 (H) 11.4 - [facility] 13.8 % [facility] LABORATORY MPV 9.9 7.6 - 12.9 [facility] LABORATORY nRBC % Auto 0.0 % [facility] LABORATORY nRBC Abs Auto 0.000 0.000 - [place] RYAN 0.000 [facility] x10(3)/[facility] LABORATORY Specimen Anatomical Collection Method Collection Time Receive d Time (Source) Location / / Volume Laterality Blood specimen 07/09/2017 2:30 AM 017 2:41 (specimen) EST AM EST Resulting Agency Comment Spec In Lab Yuan Webber MD HEMATOLOGY ORDERABLES Performing Organization Address City/State/ZIP [place] [address] POCT Glucose (07/09/2017 2:10 AM EST) P athologist Signature POC Glucose 169 65 - 199 [facility] mg/dL [facility] LABORATORY [...] Address City/State/[place] [address] POCT Glucose (07/09/2017 1:01 AM EST) P athologist Signature POC Glucose 173 65 - 199 K[place]AL[place] DAVIS mg/dL [facility] Comment: Supplemental ranges: <140 mg/dL before meals <180 mg/dL all other times of the day Specimen Anatomical Collection Method Collection Time Receive d Time (Source) Location / / Volume Laterality Blood specimen 07/09/2017 1:01 AM 017 1:01 (specimen) EST AM EST Yuan Webber MD POINT OF CARE TEST ORDERABLE S Performing Organization Address City/[facility]/[place] [address] Blood culture (07/09/2017 12:40 AM EST) Patholo gist Method Time Signature Blood Culture No growth [place] DAVIS at 5 days. [facility] LABOR[facility]ORY Specimen Anatomical Collection Method Collection Time Receive d Time (Source) Location / / Volume Laterality Blood specimen STRUCTURE OF RIGHT 07/09/2017 12:40 3:58 (specimen) UPPER LIMB / AM EST AM EST Unknown Resulting Agency Comment Spec In Lab Yuan Webber MD MICROBIOLOGY - BLOOD ORDERAB LES Performing Organization Address City/State/ZIP [place] [address] Blood culture (07/09/2017 12:30 AM EST) Patholo gist Method Time Signature Blood Culture No growth KATALINA DAVIS at 5 days. [facility]OR[facility]ORY Specimen Anatomical Collection Method Collection Time Receive d Time (Source) Location / / Volume Laterality Blood specimen STRUCTURE OF LEFT 07/09/2017 12:30 06/25 3:59 (specimen) UPPER LIMB / AM EST AM EST Unknown Resulting Agency Comment Spec In Lab Yuan Webber MD MICROBIOLOGY - BLOOD ORDERAB LES Performing Organization Address City/State/[place] [address] (ABNORMAL) Urinalysis Microscopic Exam (07/09/2017 12:05 AM EST) Analysis Performed At Patho logist Time Signature RBC UA 32 (H) 0 - 3 /HPF [facility] LABORATORY WBC UA 5 (H) 0 - 3 /HPF [facility] LABORATORY Squam Epith UA <1 <=4 /HPF [facility] LABORATORY Hyaline Cast 17 (H) 0 - 2 /LPF [facility] LABORATORY Gran Cast UA 1 (H) <=0 /LPF [facility] LABORATORY Uric Ac Bianca Rare (A) None /HPF [facility] LABORATORY Specimen (Source) Anatomical Collection Method Collection Time Re ceived Time Location / / Volume Laterality Urine specimen 07/09/2017 12:05 7 obtained via AM EST 12:39 AM EST indwelling urinary catheter (specimen) Resulting Agency Comment Spec In Lab Yuan Webber MD URINE ORDERABLES Performing Organization Address City/[facility]/[place] [address] (ABNORMAL) Urinalysis with reflex Culture (07/09/2017 12:05 AM EST) Patholo gist Method Time Signature Glucose UA Negative Negative [facility] mg/dL [facility] LABOR[facility]ORY Protein UA 30 (A) Negative [facility] mg/dL [facility]ORY Bilirubin UA Negative Negative [facility] mg/dL [facility] Comment: Clinical correlation required for [...] LABORATORY Blood UA Moderate (A) Negative mg/dL [facility] LABORATORY Ketones UA Negative Negative mg/dL [facility] LABORATORY Nitrite UA Negative Negative [facility] LABORATORY Leukocytes UA Negative Negative [facility] LABORATORY Appearance UA Hazy (A) Clear [facility] LABORATORY Spec [place] UA 1.025 1.002 - 1.030 [facility] LABORATORY Color UA Yellow Yellow [facility] LABORATORY Culture Reflexed No [facility] LABORATORY Specimen (Source) Anatomical Collection Method Collection Time Re ceived Time Location / / Volume Laterality Urine specimen 07/09/2017 12:05 7 obtained via AM EST 12:39 AM EST indwelling urinary catheter (specimen) Resulting Agency Comment Spec In Lab Yuan Webber MD URINE ORDERABLES Performing Organization Address City/[facility]/ZIP Code Phon e Number [address] POCT Glucose (07/08/2017 11:01 PM EST) P athologist Signature POC Glucose 191 65 - 199 [facility]/dL [facility] Comment: Supplemental ranges: <140 mg/dL before meals <180 mg/dL all other times of the day Specimen Anatomical Collection Method Collection Time Receive d Time (Source) Location / / Volume Laterality Blood specimen 07/08/2017 11:01 7 (specimen) PM EST 11:01 PM EST Yuan Webber MD POINT OF CARE TEST ORDERABLE S Performing Organization Address City/[facility]/ZIP Code Phon e Number [address] POCT Glucose (07/08/2017 10:04 PM EST) P athologist Signature POC Glucose 198 65 - 199 [facility] mg/dL [facility] Comment: [...] Address City/State/[place] [address] Prepare Albumin 5% in 250 mL (07/08/2017 8:49 PM EST) athologist Signature Dispensed? Yes [facility] LABORATORY Specimen Anatomical Collection Method Collection Time Receive d Time (Source) Location / / Volume Laterality Blood specimen No Charge / 07/08/2017 8:49 PM 017 8:51 (specimen) Unknown EST PM EST Resulting Agency Comment Spec In Lab [facility] ORDERABLES Performing Organization Address City/State/[place] [address] POCT Glucose (07/08/2017 8:28 PM EST) athologist Signature POC Glucose 195 65 - 199 [facility] mg/dL [facility] Comment: Supplemental ranges: <140 mg/dL before meals <180 mg/dL all other times of the day Specimen Anatomical Collection Method Collection Time Receive d Time (Source) Location / / Volume Laterality Blood specimen 07/08/2017 8:28 PM 017 8:28 (specimen) EST PM EST Yuan Webber MD POINT OF CARE TEST ORDERABLE S Performing Organization Address City/[facility]/[place] [address] (ABNORMAL) POCT Glucose (07/08/2017 7:13 PM EST) athologist Signature POC Glucose 220 (H) 65 - 199 [facility] mg/dL [facility] Comment: [...] Address City/State/[place] [address] POCT Glucose (07/08/2017 5:04 PM EST) P athologist Signature POC Glucose 147 65 - 199 [facility] mg/dL [facility] LABORATORY [...] Organization Address City/State/ZIP [place] [address] (ABNORMAL) BLOOD GAS 2 ARTERIAL (07/08/2017 4:13 PM EST) Analysis Performed At Patho logist Time Signature pH Art 7.38 7.35 - [facility] 7.45 [facility] LABORATORY pCO2 Art 36 35 - 45 [facility] LABORATORY pO2 Art 91 85 - 104 [facility] LABORATORY HCO3 Art 20.9 20.0 - [facility] 26.0 [facility] mmol/L [facility] LABORATORY BE Art -4.2 (L) -3.0 - 3.0 [facility] mmol/L [facility] LABORATORY Hgb Blood Gas 11.7 (L) 13.7 - [facility] 16.5 gm/dL [facility] LABORATORY O2HB Art 95.1 94.0 - [facility] 97.0 % [facility] LABORATORY COHB Art 0.6 % [facility] LABORATORY Comment: Nonsmokers: 0.5-1.5% COHB Smokers: Variable, but usually less than 10% Toxic: 20-30% COHB Lethal: Greater than 60% COHB METHB Art 0.6 <=1.5 % [facility] LABORATORY Na Whole Blood 139 135 - 145 mmol/L [facility]OR[facility] K Whole Blood 4.2 3.5 - 5.0 mmol/L [facility] LABOR[facility]ORY Comment: Please note: Patients with WBC >100,000 may have falsely elevated Potassium levels. Contact the Clinical Chemistry L aboratory if there are any questions. ICa Whole Blood 1.05 (L) 1.15 - 1.33 mmol/L [facility] LABORATORY Comment: Note: ??Total bilirubin higher than 20 m g/dL may lead to falsely low ionized calcium. CL Whole Blood 110 (H) 98 - 107 mmol/L [facility] LABORATORY Gluc Whole Bld 155 65 - 199 mg/dL [facility] LABOR[facility] Comment: Diabetes: >=200 mg/dL plus symp toms. Lactate WB 1.4 0.5 - 2.2 mmol/L [facility] LABORATORY FIO2 Art 40 % [facility] LABORAT[facility] PF Ratio Art 228 [facility] LABORATORY Specimen Anatomical Collection Method Collection Time Receive d Time (Source) Location / / Volume Laterality Blood specimen 07/08/2017 4:13 PM 017 4:13 (specimen) EST PM EST Yuan Webber MD CHEMISTRY ORDERABLES Performing Organization Address City/[facility]/ZIP [facility] [place] [place] Phon e Number [address] POCT Glucose (07/08/2017 4:01 PM EST) athologist Signature POC Glucose 148 65 - 199 [facility] mg/dL [facility] LABORATORY Comment: Supplemental ranges: <140 mg/dL before meals <180 mg/dL all other times of the day Specimen Anatomical Collection Method Collection Time Receive d Time (Source) Location / / Volume Laterality Blood specimen 07/08/2017 4:01 PM 017 4:01 (specimen) EST PM EST Yuan Webber MD POINT OF CARE TEST ORDERABLE S Performing Organization Address City/[facility]/ZIP [facility] [place] [place] Phon e Number [address] POCT Glucose (07/08/2017 3:21 PM EST) P athologist Signature POC Glucose 118 65 - 199 [facility] mg/dL [facility] LABORATORY [...] Address City/State/[place] [address] POCT Glucose (07/08/2017 2:01 PM EST) P athologist Signature POC Glucose 129 65 - 199 [place] mg/dL [facility] LABORATORY Comment: [...] Address City/State/[place] [address] POCT Glucose (07/08/2017 11:53 AM EST) athologist Signature POC Glucose 156 65 - 199 [place] RY[place] mg/dL [facility] LABOR[facility]ORY Comment: [...] Address City/State/[place] [address] POCT Glucose (07/08/2017 11:04 AM EST) athologist Signature POC Glucose 181 65 - 199 [place] mg/dL [facility] LABOR[facility] Comment: Supplemental ranges: <140 mg/dL before meals <180 mg/dL all other times of the day Specimen Anatomical Collection Method Collection Time Receive d Time (Source) Location / / Volume Laterality Blood specimen 07/08/2017 11:04 7 (specimen) AM EST 11:04 AM EST Yuan Webber MD POINT OF CARE TEST ORDERABLE S Performing Organization Address City/[facility] [facility]/[place] [address] (ABNORMAL) POCT Glucose (07/08/2017 9:24 AM EST) athologist Signature POC Glucose 203 (H) 65 - 199 [facility] mg/dL [facility] LABORATORY Comment: Supplemental ranges: <140 mg/dL before meals <180 mg/dL all other times of the day Specimen Anatomical Collection Method Collection Time Receive d Time (Source) Location / / Volume Laterality Blood specimen 07/08/2017 9:24 AM 017 9:24 (specimen) EST AM EST Yuan Webber MD POINT OF CARE TEST ORDERABLE S Performing Organization Address [facility] [place] [address] APTT (07/08/2017 8:40 AM EST) athologist [facility] PTT 33 25 - 35 sec [facility] LABORATORY Comment: The recommended therapeutic range for fu ll dose, unfractionated heparin at [facility] is 80 ? [...] Webber MD HEMATOLOGY ORDERABLES Performing Organization Address City/[facility]/[place] [address] (ABNORMAL) Prothrombin Time (07/08/2017 8:40 AM EST) athologist [facility] PT 15.6 (H) 11.8 - 14.0 [facility] LABORATORY INR 1.3 (H) 0.9 - 1.1 [facility] [...] Address City/State/[place] [address] (ABNORMAL) POCT Glucose (07/08/2017 7:38 AM EST) athologist Signature POC Glucose 232 (H) 65 - 199 [facility] LABORATORY Comment: Supplemental ranges: <140 mg/dL before meals <180 mg/dL all other times of the day Specimen Anatomical Collection Method Collection Time Receive d Time (Source) Location / / Volume Laterality Blood specimen 07/08/2017 7:38 AM 017 7:38 (specimen) EST AM EST Yuan Webber MD POINT OF CARE TEST ORDERABLE S Performing Organization Address City/[facility]/[place] [address] (ABNORMAL) POCT Glucose (07/08/2017 7:07 AM EST) athologist Signature POC Glucose 234 (H) 65 - 199 [facility] LAB[facility]ORY Comment: [...] Address City/State/[place] [address] (ABNORMAL) POCT Glucose (07/08/2017 6:04 AM EST) athologist Signature POC Glucose 225 (H) 65 - 199 [facility] mg/dL [facility] LABORATORY Comment: [...] Address City/State/[place] [address] (ABNORMAL) POCT Glucose (07/08/2017 5:31 AM EST) athologist Signature POC Glucose 216 (H) 65 - 199 [facility]/dL [facility] LABORATORY Comment: Supplemental ranges: <140 mg/dL before meals <180 mg/dL all other times of the day Specimen Anatomical Collection Method Collection Time Receive d Time (Source) Location / / Volume Laterality Blood specimen 07/08/2017 5:31 AM 017 5:31 (specimen) EST AM EST Yuan Webber MD POINT OF CARE TEST ORDERABLE S Performing Organization Address City/[facility]/[place] [address] (ABNORMAL) POCT Glucose (07/08/2017 4:52 AM EST) athologist Signature POC Glucose 257 (H) 65 - 199 [facility]dL [facility] LAB[facility]ORY Comment: [...] Address City/State/[place] [address] (ABNORMAL) BLOOD GAS 2 ARTERIAL (07/08/2017 4:04 AM EST) Analysis Performed At Patho logist Time Signature pH Art 7.30 (L) 7.35 - [facility] 7.45 [facility] LABORATORY pCO2 Art 41 35 - 45 [facility] mmHg [facility] LABORATORY pO2 Art 83 (L) 85 - 104 [facility] mmHg [facility] LABORATORY HCO3 Art 19.6 (L) 20.0 - [facility] 26.0 [facility] mmol/L [facility] LABORATORY BE Art -6.8 (L) -3.0 - 3.0 [facility] mmol/L [facility] LABORATORY Hgb Blood Gas 12.2 (L) 13.7 - [facility] 16.5 gm/dL [facility] O2HB Art 93.5 (L) 94.0 - [facility] 97.0 % [facility] COHB Art 0.4 % [facility] LABORATORY Comment: Nonsmokers: 0.5-1.5% COHB Smokers: Variable, but usually less than 10% Toxic: 20-30% COHB Lethal: Greater than 60% COHB METHB Art 0.8 <=1.5 % [facility] LABORATORY Na Whole Blood 138 135 - 145 mmol/L [facility] LABORAT[facility] K Whole Blood 4.4 3.5 - 5.0 mmol/L [facility] LABORATORY Comment: Please note: Patients with WBC >100,000 may have falsely elevated Potassium levels. Contact the Clinical Chemistry L aboratory if there are any questions. ICa Whole Blood 1.05 (L) 1.15 - 1.33 mmol/L [facility] LABORATORY Comment: Note: ??Total bilirubin higher than 20 m g/dL may lead to falsely low ionized calcium. CL Whole Blood 107 98 - 107 mmol/L [facility] LABORATORY Gluc Whole Bld 274 (H) 65 - 199 mg/dL [facility] LABORATORY Comment: Diabetes: >=200 mg/dL plus symp toms. Lactate WB 4.4 (Critical) 0.5 - 2.2 mmol/L [facility] LABORATORY Comment: Noted by certified hearing instrument dispenser. FIO2 Art 40 % [facility] LABORATORY PF Ratio Art 208 [facility] LABORATORY Specimen Anatomical Collection Method Collection Time Receive d Time (Source) Location / / Volume Laterality Blood specimen 07/08/2017 4:04 AM 017 4:04 (specimen) EST AM EST Daphne Shahid MD CHEMISTRY ORDERABLES Performing Organization Address City/[facility]/ZIP Code Phon e Number [address] Scan, Peripheral Blood (07/08/2017 4:00 AM EST) P athologist Signature Plat Estimate Normal [facility] LABORATORY RBC Morphology Normal [facility] LABORATORY Specimen Anatomical Collection Method Collection Time Receive d Time (Source) Location / / Volume Laterality Blood specimen 07/08/2017 4:00 AM 017 4:09 (specimen) EST AM EST Resulting Agency Comment Spec In Lab Yuan Webber MD HEMATOLOGY ORDERABLES Performing Organization Address City/[facility]/ZIP Code Phon e Number [address] (ABNORMAL) Differential, Automated (07/08/2017 4:00 AM EST) Patholo gist Method Time Signature Neutrophils % 85.4 % [facility] LABORATORY Neutr Abs (ANC) 16.07 (H) 1.70 - [facility] 6.10 [facility] x10(3)/[facility] LABORATORY Lymphocytes % 3.5 % [facility] LABORATORY Lymphocytes Abs 0.6 (L) 0.9 - 3.2 [facility] x10(3)/[facility] LABORATORY Monocytes % 10.4 % [facility] LABORATORY Monocyte Abs 2.0 (H) 0.3 - 0.9 [facility] x10(3)/[facility] LABORATORY Eosinophils % 0.0 % [facility] LABORATORY Eosinophils Abs 0.0 0.0 - 0.4 [facility] x10(3)/[facility] LABORATORY Basophils % 0.1 % [facility] LABORATORY Basophils Abs 0.0 0.0 - 0.1 [facility] x10(3)/[facility] LABORATORY Immature Gran % 0.60 % [facility] LABORATORY Comment: Immature [...] City/State/ZIP Code Phon e Number [place] [id number] Drive (ABNORMAL) Hemogram (07/08/2017 4:00 AM EST) Analysis Performed At Patho logist Time Signature WBC 18.8 (H) 4.0 - 9.5 [facility] x10(3)/[facility] LABORATORY RBC 4.00 (L) 4.58 - [facility] 5.54 [facility] x10(6)/[facility] LABORATORY Hemoglobin 11.9 (L) 13.7 - [facility] 16.5 gm/dL [facility] LABORATORY Hematocrit 35.9 (L) 40.5 - [facility] 48.5 % [facility] LABORATORY MCV 89.8 82.9 - [facility] 93.1 [facility] LABORATORY MCH 29.8 27.5 - [place] [facility] 32.1 pg [facility] LABORATORY MCHC 33.1 32.0 - [facility] 35.7 gm/dL [facility] LABORATORY Platelets 232 145 - 357 [facility] x10(3)/[place] RDWSD 47.6 (H) 36.0 - [place] [facility] 45.0 [facility] RDWCV 14.5 (H) 11.4 - [facility] 13.8 % [facility] LABORATORY MPV 9.5 7.6 - 12.9 [facility] LABORATORY nRBC % Auto 0.0 % [facility] LABORATORY nRBC Abs Auto 0.000 0.000 - [facility] 0.000 [facility] x10(3)/[facility] LABORATORY Specimen Anatomical Collection Method Collection Time Receive d Time (Source) Location / / Volume Laterality Blood specimen 07/08/2017 4:00 AM 017 4:09 (specimen) EST AM EST Resulting Agency Comment Spec In Lab Yuan Webber MD HEMATOLOGY ORDERABLES Performing Organization Address City/State/ZIP [place] [address] (ABNORMAL) Electrolytes panel (07/08/2017 4:00 AM EST) athologist Signature Sodium 139 135 - 145 [facility] mmol/L [facility] LABORATORY Potassium 4.7 3.5 - 5.0 [facility] mmol/L [facility] LABORATORY Comment: result rechecked-JLK Please note: ??Patients with WBC >100,00 0 may have falsely elevated Potassium levels. ??For accurate Potassium quantif ication in these patients send serum separator tube (gold top) for subsequent determinations. ??Contact the Clinical Chemistry Laboratory if there are any qu estions. Chloride 104 98 - 107 mmol/L [facility] LABORATORY CO2 21 (L) 22 - 31 mmol/L [facility] LABORATORY Anion Gap 14 5 - 15 mmol/L [facility] LABORATORY Specimen Anatomical Collection Method Collection Time Receive d Time (Source) Location / / Volume Laterality Blood specimen 07/08/2017 4:00 AM 017 4:10 (specimen) EST AM EST Resulting Agency Comment Spec In Lab Yuan Webber MD CHEMISTRY ORDERABLES Performing Organization Address City/[facility]/ZIP [place] [address] (ABNORMAL) Cardiac Enzymes (LEB/CGP) (07/08/2017 4:00 AM EST) P athologist Signature Troponin-T 1.88 (H) 0.00 - [facility] 0.00 ng/mL [facility] LABORATORY Comment: The 99th percentile for [...] additional sample may be indicated. Reference: Third [place] Definition of Myocardial Infarction. Journal of the [place] [employer] 2012;60:1581-98 CK, Total 413 (H) 0 - 200 unit/L [facility] LABORATORY Comment: result rechecked-K Specimen Anatomical Collection Method Collection Time Receive d Time (Source) Location / / Volume Laterality Blood specimen 07/08/2017 4:00 AM 017 4:09 (specimen) EST AM EST Resulting Agency Comment Spec In Lab Yuan Webber MD CHEMISTRY ORDERABLES Performing Organization Address City/State/ZIP [place] [address] (ABNORMAL) Glucose, fasting (07/08/2017 4:00 AM EST) athologist Signature Glucose 287 (H) 65 - 99 [facility] Fasting mg/dL [facility] LABORATORY Comment: ?Fasting* Glucose Interpretive C [...] Webber MD CHEMISTRY ORDERABLES Performing Organization Address [facility] Phon e Number [address] (ABNORMAL) Creatinine (07/08/2017 4:00 AM EST) Analysis Performed At Patho logist Time Signature Creatinine 1.55 (H) 0.80 - [facility] 1.50 mg/dL [facility] LABORATORY Estimated GFR 44 (L) >=60 [facility] LABORATORY Comment: The reported eGFR should be multiplied b y 1.2 for patients. The MDRD is not an appropriate measure o f renal function for patients with body mass extremes or in patients with acute kidney failure. http://[employer].Mobitto/DHnkdep http://[employer]/DHMCnkf Specimen Anatomical Collection Method Collection Time Receive d Time (Source) Location / / Volume Laterality Blood specimen 07/08/2017 4:00 AM 017 4:09 (specimen) EST AM EST Resulting Agency Comment Spec In Lab Yuan Webber MD CHEMISTRY ORDERABLES Performing Organization Address [facility] Phon e Number [address] BUN (07/08/2017 4:00 AM EST) P athologist Signature BUN 16 10 - 20 [facility] mg/dL [facility] LABORATORY Specimen Anatomical Collection Method Collection Time Receive d Time (Source) Location / / Volume Laterality Blood specimen 07/08/2017 4:00 AM 017 4:09 (specimen) EST AM EST Resulting Agency Comment Spec In Lab Yuan Webber MD CHEMISTRY ORDERABLES Performing Organization Address City/State/[place] [address] (ABNORMAL) POCT Glucose (07/08/2017 3:00 AM EST) athologist Signature POC Glucose 273 (H) 65 - 199 [place] [facility] mg/dL [facility] LABORATORY Comment: Supplemental ranges: <140 mg/dL before meals <180 mg/dL all other times of the day Specimen Anatomical Collection Method Collection Time Receive d Time (Source) Location / / Volume Laterality Blood specimen 07/08/2017 3:00 AM 017 3:00 (specimen) EST AM EST Daphne Shahid MD POINT OF CARE TEST ORDERABLE S Performing Organization Address City/[facility]/[place] [address] (ABNORMAL) POCT Glucose (07/08/2017 1:57 AM EST) athologist Signature POC Glucose 288 (H) 65 - 199 [facility] mg/dL [facility] LABORATORY Comment: [...] Address City/State/[place] [address] (ABNORMAL) POCT Glucose (07/08/2017 1:01 AM EST) athologist Signature POC Glucose 315 (H) 65 - 199 [place] mg/dL [facility] LABORATORY Comment: [...] Organization Address City/State/ZIP [place] [address] (ABNORMAL) BLOOD GAS 2 ARTERIAL (07/08/2017 12:09 AM EST) athologist Signature pH Art 7.26 7.35 - [facility] (Critical) 7.45 [facility] LABORATORY Comment: Noted by certified hearing instrument dispenser. pCO2 Art 41 35 - 45 mmHg [facility] LABORATORY pO2 Art 96 85 - 104 mmHg [facility] LABORATORY HCO3 Art 17.7 (L) 20.0 - 26.0 mmol/L [facility] LABORATORY BE Art -9.4 (L) -3.0 - 3.0 mmol/L [facility] LABORATORY Hgb Blood Gas 12.4 (L) 13.7 - 16.5 gm/dL [facility] LABORATORY O2HB Art 94.7 94.0 - 97.0 % [facility] LABORATORY COHB Art 0.2 % [facility] LABORATORY Comment: Nonsmokers: 0.5-1.5% COHB Smokers: Variable, but usually less than 10% Toxic: 20-30% COHB Lethal: Greater than 60% COHB METHB Art 0.6 <=1.5 % [facility] LABORATORY Na Whole Blood 141 135 - 145 mmol/L [facility] LABORAT[facility] K Whole Blood 3.5 3.5 - 5.0 mmol/L [facility] LABORATORY Comment: Please note: Patients with WBC >100,000 may have falsely elevated Potassium levels. Contact the Clinical Chemistry L aboratory if there are any questions. ICa Whole Blood 1.03 (L) 1.15 - 1.33 mmol/L [facility] LABORATORY Comment: Note: ??Total bilirubin higher than 20 m g/dL may lead to falsely low ionized calcium. CL Whole Blood 109 (H) 98 - 107 mmol/L [facility] LABORATORY Gluc Whole Bld 315 (H) 65 - 199 mg/dL [facility] LABORATORY Comment: Diabetes: >=200 mg/dL plus symp toms. Lactate WB 7.6 (Critical) 0.5 - 2.2 mmol/L [facility] LABORATORY Comment: Noted by certified hearing instrument dispenser. FIO2 Art 40 % [facility] LABORATORY PF Ratio Art 240 [facility] LABORATORY Specimen Anatomical Collection Method Collection Time Receive d Time (Source) Location / / Volume Laterality Blood specimen Arterial Draw / 07/08/2017 12:09 2016 5:31 (specimen) Unknown AM EST AM EST Resulting Agency Comment Spec In Lab Samy Maldonado MD CHEMISTRY ORDERABLES Performing Organization Address City/State/[place] [address] (ABNORMAL) POCT Glucose (07/07/2017 10:56 PM EST) P athologist Signature POC Glucose 292 (H) 65 - 199 [facility] mg/dL [facility] LABORATORY Comment: Supplemental ranges: <140 mg/dL before meals <180 mg/dL all other times of the day Specimen Anatomical Collection Method Collection Time Receive d Time (Source) Location / / Volume Laterality Blood specimen 07/07/2017 10:56 7 (specimen) PM EST 10:56 PM EST Daphne Shahid MD POINT OF CARE TEST ORDERABLE S Performing Organization Address City/[facility]/[place] [address] (ABNORMAL) BLOOD GAS 2 ARTERIAL (07/07/2017 10:04 PM EST) P athologist Signature pH Art 7.22 7.35 - [facility] (Critical) 7.45 [facility] LABORATORY Comment: Noted by certified hearing instrument dispenser. pCO2 Art 42 35 - 45 mmHg [facility] LABORATORY pO2 Art 94 85 - 104 mmHg [facility] LABORATORY HCO3 Art 16.9 (L) 20.0 - 26.0 mmol/L [facility] LABORATORY BE Art -10.7 (L) -3.0 - 3.0 mmol/L [facility] LABORATORY Hgb Blood Gas 13.0 (L) 13.7 - 16.5 gm/dL [facility] LABORATORY O2HB Art 93.8 (L) 94.0 - 97.0 % [facility] LABORATORY COHB Art 0.7 % [facility] LABORATORY Comment: Nonsmokers: 0.5-1.5% COHB Smokers: Variable, but usually less than 10% Toxic: 20-30% COHB Lethal: Greater than 60% COHB METHB Art 0.7 <=1.5 % [facility] LABORATORY Na Whole Blood 140 135 - 145 mmol/L [facility] LABORATORY K Whole Blood 3.3 (L) 3.5 - 5.0 mmol/L [facility] LABORATORY Comment: Please note: Patients with WBC >100,000 may have falsely elevated Potassium levels. Contact the Clinical Chemistry L aboratory if there are any questions. ICa Whole Blood 1.07 (L) 1.15 - 1.33 mmol/L [facility] LABORATORY Comment: Note: ??Total bilirubin higher than 20 m g/dL may lead to falsely low ionized calcium. CL Whole Blood 107 98 - 107 mmol/L [facility] LABORATORY Gluc Whole Bld 304 (H) 65 - 199 mg/dL [facility] Comment: Diabetes: >=200 mg/dL plus symp toms. Lactate WB 8.2 (Critical) 0.5 - 2.2 mmol/L [facility] LABOR[facility] Comment: Noted by certified hearing instrument dispenser. FIO2 Art 40 % [facility] LABORATORY PF Ratio Art 235 [facility] LABORATORY Specimen Anatomical Collection Method Collection Time Receive d Time (Source) Location / / Volume Laterality Blood specimen 07/07/2017 10:04 7 (specimen) PM EST 10:04 PM EST Daphne Shahid MD CHEMISTRY ORDERABLES Performing Organization Address City/State/ZIP [place] [address] (ABNORMAL) Hemoglobin (07/07/2017 10:00 PM EST) athologist Signature Hemoglobin 12.8 (L) 13.7 - [facility] 16.5 gm/dL [facility] LABORATORY Specimen Anatomical Collection Method Collection Time Receive d Time (Source) Location / / Volume Laterality Blood specimen 07/07/2017 10:00 7 (specimen) PM EST 10:13 PM EST Resulting Agency Comment Spec In Lab Yuan Webber MD HEMATOLOGY ORDERABLES Performing Organization Address City/State/[place] [address] (ABNORMAL) Potassium (07/07/2017 10:00 PM EST) athologist Signature Potassium 3.4 (L) 3.5 - 5.0 [facility] mmol/L [facility] LABORATORY Comment: Please note: ??Patients [...] Webber MD CHEMISTRY ORDERABLES Performing Organization Address City/[facility]/ZIP Code Phon e Number [address] (ABNORMAL) POCT Glucose (07/07/2017 8:49 PM EST) athologist Signature POC Glucose 241 (H) 65 - 199 [facility] mg/dL [facility] LABORATORY Comment: Supplemental ranges: <140 mg/dL before meals <180 mg/dL all other times of the day Specimen Anatomical Collection Method Collection Time Receive d Time (Source) Location / / Volume Laterality Blood specimen 07/07/2017 8:49 PM 017 8:49 (specimen) EST PM EST Daphne Shahid MD POINT OF CARE TEST ORDERABLE S Performing Organization Address City/[facility]/[place] [address] Prepare Albumin 5% in 250 mL (07/07/2017 8:03 PM EST) P athologist Signature Dispensed? Yes [facility] LABORATORY Specimen Anatomical Collection Method Collection Time Receive d Time (Source) Location / / Volume Laterality Blood specimen No Charge / 07/07/2017 8:03 PM 017 8:04 (specimen) Unknown EST PM EST Resulting Agency Comment Spec In Lab Michael Drake PA BLOOD BANK ORDERABLES Performing Organization Address [facility]/ZIP Code Phon e Number [address] EKG 12 Lead (07/07/2017 7:17 PM EST) Component Value Ref Range Test Analysis Performed Pathologis t Method Time At Signature Ventricular rate 75 BPM MUSE SYSTEM Atrial Rate 75 BPM MUSE SYSTEM P-R Interval 168 ms MUSE SYSTEM QRS Duration 104 ms MUSE SYSTEM Q-T Interval 462 ms MUSE SYSTEM QTC Calculated 515 ms MUSE SYSTEM (Bezet) Calculated P Cl[place] 52 degrees MUSE SYSTEM Calculated R Cl[place] -40 degrees MUSE SYSTEM Calculated T [place] 39 degrees MUSE SYSTEM INTERPRETATION Normal sinus [...] Webber MD ECG ORDERABLES Performing Organization Address City/[facility]/ZIP Code Phon e Number MUSE SYSTEM XR [...] athologist Signature pH Art 7.21 7.35 - [facility] (Critical) 7.45 [facility] LABORATORY Comment: Noted by certified hearing instrument dispenser. pCO2 Art 50 (H) 35 - 45 mmHg [facility] LABORATORY pO2 Art 238 (H) 85 - 104 mmHg [facility] LABORATORY HCO3 Art 19.8 (L) 20.0 - 26.0 mmol/L [facility] LABORAT[facility] BE Art -8.1 (L) -3.0 - 3.0 mmol/L [facility] LABORATORY Hgb Blood Gas 12.8 (L) 13.7 - 16.5 gm/dL [facility] LABORATORY O2HB Art 97.5 (H) 94.0 - 97.0 % [facility] LABORATORY COHB Art 0.5 % [facility] LABORATORY Comment: Nonsmokers: 0.5-1.5% COHB Smokers: Variable, but usually less than 10% Toxic: 20-30% COHB Lethal: Greater than 60% COHB METHB Art 0.7 <=1.5 % [facility]ORAT[facility] Na Whole Blood 140 135 - 145 mmol/L [facility] LABORATORY K Whole Blood 3.0 (Critical) 3.5 - 5.0 mmol/L [facility] LABORATORY Comment: Noted by certified hearing instrument dispenser. Please note: Patients with WBC >100,000 may have falsely elevated Potassium levels. Contact the Clinical Chemistry L aboratory if there are any questions. ICa Whole Blood 1.07 (L) 1.15 - 1.33 mmol/L [facility] LABORATORY Comment: Note: ??Total bilirubin higher than 20 m g/dL may lead to falsely low ionized calcium. CL Whole Blood 107 98 - 107 mmol/L [facility]OR[facility] Gluc Whole Bld 270 (H) 65 - 199 mg/dL [facility] Comment: Diabetes: >=200 mg/dL plus symp toms. Lactate WB 4.9 (Critical) 0.5 - 2.2 mmol/L [facility] Comment: Noted by certified hearing instrument dispenser. FIO2 Art 100 % [facility]OR[facility] PF Ratio Art 238 [facility] LABORATORY Specimen Anatomical Collection Method Collection Time Receive d Time (Source) Location / / Volume Laterality Blood specimen 07/07/2017 6:57 PM 017 6:57 (specimen) EST PM EST Daphne Shahid MD CHEMISTRY ORDERABLES Performing Organization Address City/State/ZIP [place] [address] (ABNORMAL) BLOOD GAS 2 ARTERIAL (07/07/2017 5:31 PM EST) athologist Signature pH Art 7.29 7.35 - [facility] (Critical) 7.45 [facility] Comment: Noted by certified hearing instrument dispenser. pCO2 Art 48 (H) 35 - 45 mmHg [facility] pO2 Art 137 (H) 85 - 104 mmHg [facility] HCO3 Art 22.4 20.0 - 26.0 mmol/L [facility] BE Art -4.3 (L) -3.0 - 3.0 mmol/L [facility] Hgb Blood Gas 10.0 (L) 13.7 - 16.5 gm/dL [facility] O2HB Art 97.3 (H) 94.0 - 97.0 % [facility] COHB Art 0.3 % [facility] Comment: Nonsmokers: 0.5-1.5% COHB Smokers: Variable, but usually less than 10% Toxic: 20-30% COHB Lethal: Greater than 60% COHB METHB Art 0.3 <=1.5 % [facility] Na Whole Blood 132 (L) 135 - 145 mmol/L [facility] K Whole Blood 4.0 3.5 - 5.0 mmol/L [facility] Comment: Please note: Patients with WBC >100,000 may have falsely elevated Potassium levels. Contact the Clinical Chemistry L aboratory if there are any questions. ICa Whole Blood 1.14 (L) 1.15 - 1.33 mmol/L [facility] Comment: Note: ??Total bilirubin higher than 20 m g/dL may lead to falsely low ionized calcium. CL Whole Blood 105 98 - 107 mmol/L [facility] Gluc Whole Bld 293 (H) 65 - 199 mg/dL [facility] Comment: Diabetes: >=200 mg/dL plus symp toms. Lactate WB 3.1 (H) 0.5 - 2.2 mmol/L [facility] Specimen Anatomical Collection Method Collection Time Receive d Time (Source) Location / / Volume Laterality Blood specimen 07/07/2017 5:31 PM 017 5:31 (specimen) EST PM EST Dapnhe Shahid MD CHEMISTRY ORDERABLES Performing Organization Address City/[facility]/[place] [address] Fibrinogen (07/07/2017 5:30 PM EST) athologist Signature Fibrinogen 224 180 - 510 [facility] mg/dL [facility] Comment: Called by: JEET, Read [...] Perez MD HEMATOLOGY ORDERABLES Performing Organization Address City/[facility]/ZIP Code Phon e Number [address] APTT (07/07/2017 5:30 PM EST) athologist Signature PTT 30 25 - 35 sec [facility] Comment: The recommended therapeutic range for fu ll dose, unfractionated heparin at [facility] is 80 ? [...] Perez MD HEMATOLOGY ORDERABLES Performing Organization Address City/[facility]/ZIP [facility] [place] [place] [address] (ABNORMAL) Prothrombin Time (07/07/2017 5:30 PM EST) athologist Signature PT 19.0 (H) 11.8 - 14.0 [facility] LABORATORY INR 1.6 (H) 0.9 - 1.1 [facility] [...] Organization Address City/State/ZIP [place] [address] (ABNORMAL) Hemogram (07/07/2017 5:30 PM EST) athologist Signature WBC 19.6 (H) 4.0 - 9.5 [facility] x10(3)/[facility] LABORATORY RBC 3.08 (L) 4.58 - [facility] 5.54 [facility] x10(6)/[facility] LABORATORY Hemoglobin 9.2 (L) 13.7 - [facility] 16.5 gm/dL [facility] Hematocrit 28.0 (L) 40.5 - [facility] 48.5 % [facility] Comment: This result has been called to MONICA WEINSTEIN SON by DONALD GROSSMAN on 07 07 2017 at 1759, and has been read back. MCV 90.9 82.9 - 93.1 fL [facility] MCH 29.9 27.5 - 32.1 pg [facility] MCHC 32.9 32.0 - 35.7 gm/dL [facility] Platelets 155 145 - 357 x10(3)/[facility] LABORATORY RDWSD 46.5 (H) 36.0 - 45.0 fL [facility] RDWCV 14.1 (H) 11.4 - 13.8 % [facility] MPV 9.5 7.6 - 12.9 fL [facility] nRBC % Auto 0.0 % [facility] nRBC Abs Auto 0.000 0.000 - 0.000 x10(3)/[facility] LABORATORY Specimen Anatomical Collection Method Collection Time Receive d Time (Source) Location / / Volume Laterality Blood specimen 07/07/2017 5:30 PM 017 5:34 (specimen) EST PM EST Resulting Agency Comment Spec In Lab Yifan Perez MD HEMATOLOGY ORDERABLES Performing Organization Address [facility] Phon e Number [address] Prepare Platelets, Apheresis (07/07/2017 5:00 PM EST) P athologist Signature Dispensed? Yes [facility] Specimen Anatomical Collection Method Collection Time Receive d Time (Source) Location / / Volume Laterality Blood specimen 07/07/2017 5:00 PM 017 4:58 (specimen) EST PM EST Daphne Shahid MD BLOOD BANK ORDERABLES Performing Organization Address City/[facility] Phon e Number [address] Platelet count (07/07/2017 4:55 PM EST) P athologist Signature Platelets 177 145 - 357 [facility] x10(3)/[facility] LABORATORY Plat Immature 1.5 0.0 - 7.4 [facility] Comment: Limitation of the Immature Platelet Frac tion (IPF)-May be less reliable when the platelet count is less than 37u378/u L due to statistical imprecision. The IPF [...] in a decreased state of production. References: [employer] The Clinical Value of the Immature Platelet Fraction (IPF) in Cell Recovery Document Number 10-1143 12/2010 [employer] The Role of the Imm ature Platelet Fraction (IPF) in the Differential Diagnosis of Thrombocytopen ia, Document [id number] V012/04/13 Specimen Anatomical Collection Method Collection Time Receive d Time (Source) Location / / Volume Laterality Blood specimen 07/07/2017 4:55 PM 017 5:13 (specimen) EST PM EST Resulting Agency Comment Spec In Lab Daphne Shahid MD HEMATOLOGY ORDERABLES Performing Organization Address City/[facility]/ZIP [place] [address] (ABNORMAL) Hemoglobin and Hematocrit, blood (07/07/2017 4:55 PM EST) P athologist Signature Hemoglobin 9.1 (L) 13.7 - 16.5 [facility] gm/dL [facility] Comment: This result has been called to MALKA MORAN by DONALD GROSSMAN on 07 07 2017 at 1734, and has been read back. Hematocrit 26.6 (L) 40.5 - 48.5 % [facility] Comment: This result has been [...] Shahid MD HEMATOLOGY ORDERABLES Performing Organization Address City/[facility]/ZIP Code Phon [place] [address] (ABNORMAL) BLOOD GAS 2 ARTERIAL (07/07/2017 4:38 PM EST) Analysis Performed At Patho logist Time Signature pH Art 7.37 7.35 - [facility] 7.45 [facility] pCO2 Art 44 35 - 45 [facility] mmHg [facility] pO2 Art 322 (H) 85 - 104 [facility] mmHg [facility] HCO3 Art 24.9 20.0 - [facility] 26.0 [facility] mmol/L [facility] BE Art -0.4 -3.0 - 3.0 [facility] mmol/L [facility] Hgb Blood Gas 10.1 (L) 13.7 - [facility] 16.5 gm/dL [facility] O2HB Art 98.7 (H) 94.0 - [facility] 97.0 % [facility] COHB Art 0.1 % [facility] Comment: Nonsmokers: 0.5-1.5% COHB Smokers: Variable, but usually less than 10% Toxic: 20-30% COHB Lethal: Greater than 60% COHB METHB Art 0.3 <=1.5 % [facility] Na Whole Blood 130 (L) 135 - 145 mmol/L [facility] K Whole Blood 5.7 (H) 3.5 - 5.0 mmol/L [facility] Comment: Please note: Patients with WBC >100,000 may have falsely elevated Potassium levels. Contact the Clinical Chemistry L aboratory if there are any questions. ICa Whole Blood 0.89 (Critical) 1.15 - 1.33 mmol/L [facility] Comment: Noted by certified hearing instrument dispenser. Note: ??Total bilirubin higher than 20 m g/dL may lead to falsely low ionized calcium. CL Whole Blood 101 98 - 107 mmol/L [facility] Gluc Whole Bld 295 (H) 65 - 199 mg/dL [facility] Comment: Diabetes: >=200 mg/dL plus symp toms. Lactate WB 1.7 0.5 - 2.2 mmol/L [facility] Specimen Anatomical Collection Method Collection Time Receive d Time (Source) Location / / Volume Laterality Blood specimen 07/07/2017 4:38 PM 017 4:38 (specimen) EST PM EST Daphne Shahid MD CHEMISTRY ORDERABLES Performing Organization Address City/State/ZIP [place] [address] (ABNORMAL) BLOOD GAS 2 VENOUS (07/07/2017 4:06 PM EST) Analysis Performed At Patho [facility] Time Signature pH Cody 7.31 (L) 7.32 - [facility] 7.42 [facility] pCO2 Cody 47 41 - 51 [facility] LABORATORY pO2 Cody 53 (H) 25 - 40 [facility] LABORATORY HCO3 Cody 22.7 mmol/L [facility] BE Cody -3.7 mmol/L [facility] Hgb Blood Gas 10.2 (L) 13.7 - [facility] 16.5 gm/dL [facility] O2HB Cody 81.0 % [facility] COHB Cody 1.0 % [facility] Comment: Nonsmokers: 0.5-1.5% COHB Smokers: Variable, but usually less than 10% Toxic: 20-30% COHB Lethal: Greater than 60% COHB METHB Cody 0.3 <=1.5 % [facility] Na Whole Blood 132 (L) 135 - 145 mmol/L [facility] K Whole Blood 5.3 (H) 3.5 - 5.0 mmol/L [facility] Comment: Please note: Patients with WBC >100,000 may have falsely elevated Potassium levels. Contact the Clinical Chemistry L aboratory if there are any questions. ICa Whole Blood 0.90 (Critical) 1.15 - 1.33 mmol/L [facility] Comment: Noted by certified hearing instrument dispenser. Note: ??Total bilirubin higher than 20 m g/dL may lead to falsely low ionized calcium. CL Whole Blood 100 98 - 107 mmol/L [facility] Gluc Whole Bld 231 (H) 65 - 199 mg/dL [facility] Comment: Diabetes: >=200 mg/dL plus symp toms Lactate WB 1.1 0.5 - 2.2 mmol/L [facility] BGas Source Venous [facility] Specimen Anatomical Collection Method Collection Time Receive d Time (Source) Location / / Volume Laterality Blood specimen 07/07/2017 4:06 PM 017 4:06 (specimen) EST PM EST Daphne Shahid MD CHEMISTRY ORDERABLES Performing Organization Address City/State/ZIP [place] [address] (ABNORMAL) BLOOD GAS 2 ARTERIAL (07/07/2017 4:05 PM EST) Analysis Performed At Patho logist Time Signature pH Art 7.36 7.35 - [facility] 7.45 [facility] pCO2 Art 40 35 - 45 [facility] LABORATORY pO2 Art 282 (H) 85 - 104 [facility] LABORATORY HCO3 Art 22.1 20.0 - [facility] 26.0 [facility] mmol/[facility] BE Art -3.4 (L) -3.0 - 3.0 [facility] mmol/L [facility] Hgb Blood Gas 10.2 (L) 13.7 - [facility] 16.5 gm/dL [facility] O2HB Art 98.4 (H) 94.0 - [facility] 97.0 % [facility] COHB Art 0.3 % [facility] Comment: Nonsmokers: 0.5-1.5% COHB Smokers: Variable, but usually less than 10% Toxic: 20-30% COHB Lethal: Greater than 60% COHB METHB Art 0.3 <=1.5 % [facility] Na Whole Blood 131 (L) 135 - 145 mmol/L [facility] K Whole Blood 5.4 (H) 3.5 - 5.0 mmol/L [facility] Comment: Please note: Patients with WBC >100,000 may have falsely elevated Potassium levels. Contact the Clinical Chemistry L aboratory if there are any questions. ICa Whole Blood 0.86 (Critical) 1.15 - 1.33 mmol/L [facility] Comment: Noted by certified hearing instrument dispenser. Note: ??Total bilirubin higher than 20 m g/dL may lead to falsely low ionized calcium. CL Whole Blood 101 98 - 107 mmol/L [facility] Gluc Whole Bld 260 (H) 65 - 199 mg/dL [facility] Comment: Diabetes: >=200 mg/dL plus symp toms. Lactate WB 1.4 0.5 - 2.2 mmol/L [facility] Specimen Anatomical Collection Method Collection Time Receive d Time (Source) Location / / Volume Laterality Blood specimen 07/07/2017 4:05 PM 017 4:05 (specimen) EST PM EST Daphne Shahid MD CHEMISTRY ORDERABLES Performing Organization Address City/State/ZIP [place] [address] (ABNORMAL) BLOOD GAS 2 ARTERIAL (07/07/2017 2:29 PM EST) Analysis Performed At Patho logist Time Signature pH Art 7.43 7.35 - [facility] 7.45 [facility] pCO2 Art 36 35 - 45 [facility] LABORATORY pO2 Art 221 (H) 85 - 104 [facility] LABORATORY HCO3 Art 23.2 20.0 - [facility] 26.0 [facility] mmol/L [facility]AT[facility] BE Art -1.2 -3.0 - 3.0 [facility] mmol/L [facility] Hgb Blood Gas 13.9 13.7 - [facility] 16.5 gm/dL [facility] O2HB Art 97.8 (H) 94.0 - [facility] 97.0 % [facility] COHB Art 1.1 % [facility] Comment: Nonsmokers: 0.5-1.5% COHB Smokers: Variable, but usually less than 10% Toxic: 20-30% COHB Lethal: Greater than 60% COHB METHB Art 0.3 <=1.5 % [facility] Na Whole Blood 139 135 - 145 mmol/L [facility] K Whole Blood 4.0 3.5 - 5.0 mmol/L [facility] Comment: Please note: Patients with WBC >100,000 may have falsely elevated Potassium levels. Contact the Clinical Chemistry L aboratory if there are any questions. ICa Whole Blood 1.11 (L) 1.15 - 1.33 mmol/L [facility] Comment: Note: ??Total bilirubin higher than 20 m g/dL may lead to falsely low ionized calcium. CL Whole Blood 104 98 - 107 mmol/L [facility] Gluc Whole Bld 184 65 - 199 mg/dL [facility] Comment: Diabetes: >=200 mg/dL plus symp toms. Lactate WB 1.5 0.5 - 2.2 mmol/L [facility] Specimen Anatomical Collection Method Collection Time Receive d Time (Source) Location / / Volume Laterality Blood specimen 07/07/2017 2:29 PM 017 2:29 (specimen) EST PM EST Daphne Shahid MD CHEMISTRY ORDERABLES Performing Organization Address City/[facility]/[place] [address] Prepare Coag Factors (Non-Hemophilia) (07/07/2017 1:25 PM EST) P athologist Signature Dispensed? Yes [facility] Specimen Anatomical Collection Method Collection Time Receive d Time (Source) Location / / Volume Laterality Blood specimen 07/07/2017 1:25 PM 017 1:21 (specimen) EST PM EST Daphne Shahid MD BLOOD BANK ORDERABLES Performing Organization Address City/[facility]/[place] [address] Prepare RBC (07/07/2017 1:10 PM EST) P athologist Signature Dispensed? Yes [facility] Specimen Anatomical Collection Method Collection Time Receive d Time (Source) Location / / Volume Laterality Blood specimen 07/07/2017 1:10 PM 017 1:05 (specimen) EST PM EST Daphne hSahid MD BLOOD BANK ORDERABLES Performing Organization Address City/State/[place] [address] POCT Glucose (07/07/2017 11:56 AM EST) P athologist Signature POC Glucose 188 65 - 199 [facility] mg/dL [facility] Comment: [...] Address City/State/ZIP Code Phon e Number [address] POCT Glucose (07/07/2017 11:05 AM EST) athologist Signature POC Glucose 168 65 - 199 [facility] Comment: [...] Address City/State/ZIP Code Phon e Number [address] POCT Glucose (07/07/2017 10:02 AM EST) athologist Signature POC Glucose 191 65 - 199 [facility] mg/dL [facility] Comment: [...] Address City/State/[place] [address] POCT Glucose (07/07/2017 7:53 AM EST) athologist Signature POC Glucose 178 65 - 199 [facility] mg/dL [facility] Comment: [...] Address City/State/ZIP Code Phon e Number [address] POCT Glucose (07/07/2017 7:03 AM EST) athologist Signature POC Glucose 188 65 - 199 [facility]/dL [facility] Comment: [...] Address City/State/[place] [address] (ABNORMAL) POCT Glucose (07/07/2017 6:17 AM EST) athologist Signature POC Glucose 207 (H) 65 - 199 [facility] mg/dL [facility] Comment: [...] Address City/State/[place] [address] Differential, Automated (07/07/2017 5:15 AM EST) P athologist Signature Neutrophils % 69.7 % [facility] Neutr Abs (ANC) 5.32 1.70 - [facility] 6.10 [facility] x10(3)/[facility] LABORATORY Lymphocytes % 16.3 % [facility] Lymphocytes Abs 1.2 0.9 - 3.2 [facility] x10(3)/[facility] LABORATORY Monocytes % 10.5 % [facility] Monocyte Abs 0.8 0.3 - 0.9 [facility] x10(3)/[facility] LABORATORY Eosinophils % 2.5 % [facility] Eosinophils Abs 0.2 0.0 - 0.4 [facility] x10(3)/[facility] LABORATORY Basophils % 0.7 % [facility] Basophils Abs 0.0 0.0 - 0.1 [facility] x10(3)/[facility] LABORATORY Immature Gran % 0.30 % [facility] Comment: Immature granulocytes(IG's)percentage an d absolute count will include metamyelocytes, myelocytes, and promyelo cytes. Blood smears from CBCs yielding IG's will be scanned manually for concor dance. If this scan disagrees with the automated IG or if promyelocytes are not ed, a manual differential will be performed. Melisa Gran Abs 0.02 0.00 - 0.04 x10(3)/[facility] MAR Y [facility] LABORATORY Specimen Anatomical Collection Method Collection Time Receive d Time (Source) Location / / Volume Laterality Blood specimen 07/07/2017 5:15 AM 017 5:34 (specimen) EST AM EST Resulting Agency Comment Spec In Lab Daphne Shahid MD HEMATOLOGY ORDERABLES Performing Organization Address City/State/ZIP [place] [address] (ABNORMAL) Hemogram (07/07/2017 5:15 AM EST) Analysis Performed At Patho logist Time Signature WBC 7.6 4.0 - 9.5 [facility] x10(3)/[facility] LABORATORY RBC 4.82 4.58 - [facility] 5.54 [facility] x10(6)/[facility] LABORATORY Hemoglobin 14.4 13.7 [facility] gm/dL [facility] Hematocrit 42.1 40.5 - [facility] 48.5 % [facility] LAB[facility]ORY MCV 87.3 82.9 - [facility] 93.1 [facility] LABORATORY MCH 29.9 27.5 - [facility] 32.1 pg [facility] LABORATORY MCHC 34.2 32.0 - [facility] 35.7 gm/dL [facility] Platelets 188 145 - 357 [facility] x10(3)/[facility] LABORATORY RDWSD 45.1 (H) 36.0 - [facility] 45.0 [facility] LABORATORY RDWCV 14.3 (H) 11.4 - [facility] 13.8 % [facility] LABORATORY MPV 9.4 7.6 - 12.9 [facility] LABORATORY nRBC % Auto 0.0 % [facility]ATORY nRBC Abs Auto 0.000 0.000 - [facility] 0.000 [facility] x10(3)/[facility] LABORATORY Specimen Anatomical Collection Method Collection Time Receive d Time (Source) Location / / Volume Laterality Blood specimen 07/07/2017 5:15 AM 017 5:34 (specimen) EST AM EST Resulting Agency Comment Spec In Lab Daphne Shahid MD HEMATOLOGY ORDERABLES Performing Organization Address City/State/ZIP [place] [address] (ABNORMAL) APTT (07/07/2017 5:15 AM EST) P athologist Signature PTT 69 (H) 25 - 35 sec [facility] Comment: The recommended therapeutic range for fu ll dose, unfractionated heparin at [facility] is 80 ? [...] Shahid MD HEMATOLOGY ORDERABLES Performing Organization Address City/[facility]/ZIP Code Phon e Number [address] Magnesium (07/07/2017 5:15 AM EST) athologist Signature Magnesium 0.94 0.69 - 1.07 [facility] mmol/L [facility] LABOR[facility]ORY Specimen Anatomical Collection Method Collection Time Receive d Time (Source) Location / / Volume Laterality Blood specimen 07/07/2017 5:15 AM 017 5:34 (specimen) EST AM EST Resulting Agency Comment Spec In Lab Daphne Shahid MD CHEMISTRY ORDERABLES Performing Organization Address City/[facility] Phon e Number [address] (ABNORMAL) Basic Metabolic Panel (non-fasting) (07/07/2017 5:15 AM EST) athologist Signature Glucose Lvl 203 (H) 65 - 199 [facility] mg/dL [facility]ORY Comment: Diabetes: >=200 mg/dL plus symp toms BUN 15 10 - 20 mg/dL [facility] LABORATORY Creatinine 1.09 0.80 - 1.50 mg/dL [facility] LAB[facility] Sodium 142 135 - 145 mmol/L [facility] LABORATORY Potassium 4.4 3.5 - 5.0 mmol/L [facility] [...] Anion Gap 14 5 - 15 mmol/L [facility]ORY Calcium 8.6 8.5 - 10.5 mg/dL [facility] LABORATORY Estimated GFR >60 >=60 [facility]ORY Comment: The reported eGFR should be multiplied b y 1.2 for patients. The MDRD is not an appropriate measure o f renal function for patients with body mass extremes or in patients with acute kidney failure. http://X-IO/DHnkdep http://X-IO/DHMCnkf Specimen Anatomical Collection Method Collection Time Receive d Time (Source) Location / / Volume Laterality Blood specimen 07/07/2017 5:15 AM 017 5:34 (specimen) EST AM EST Resulting Agency Comment Spec In Lab Daphne Shahid MD CHEMISTRY ORDERABLES Performing Organization Address City/State/ZIP [place] [address] (ABNORMAL) Cardiac Enzymes (LEB/CGP) (07/07/2017 5:15 AM EST) P athologist Signature Troponin-T 2.07 (H) 0.00 [facility] ng/mL [facility] Comment: The 99th percentile for [...] additional sample may be indicated. Reference: Third [place] Definition of Myocardial Infarction. Journal of the [place] [employer] 2012;60:1581-98 CK, Total 88 0 - 200 unit/L [facility] LAB[facility]ORY Specimen Anatomical Collection Method Collection Time Receive d Time (Source) Location / / Volume Laterality Blood specimen 07/07/2017 5:15 AM 017 5:34 (specimen) EST AM EST Resulting Agency Comment Spec In Lab Daphne Shahid MD CHEMISTRY ORDERABLES Performing Organization Address City/State/ZIP Code Phon e Number [address] POCT Glucose (07/07/2017 5:01 AM EST) athologist Signature POC Glucose 182 65 - 199 [facility]dL [facility] LABOR[facility]ORY Comment: Supplemental ranges: <140 mg/dL before meals <180 mg/dL all other times of the day Specimen Anatomical Collection Method Collection Time Receive d Time (Source) Location / / Volume Laterality Blood specimen 07/07/2017 5:01 AM 017 5:01 (specimen) EST AM EST Daphne Shahid MD POINT OF CARE TEST ORDERABLE S Performing Organization Address City/[facility]/ZIP Code Phon e Number [address] POCT Glucose (07/07/2017 4:08 AM EST) athologist Signature POC Glucose 199 65 - 199 [facility] mg/dL [facility] LABORATORY Comment: [...] Address City/State/ZIP Code Phon e Number [address] POCT Glucose (07/07/2017 3:03 AM EST) athologist Signature POC Glucose 188 65 - 199 [facility]dL [facility] LABOR[facility]ORY Comment: Supplemental ranges: <140 mg/dL before meals <180 mg/dL all other times of the day Specimen Anatomical Collection Method Collection Time Receive d Time (Source) Location / / Volume Laterality Blood specimen 07/07/2017 3:03 AM 017 3:03 (specimen) EST AM EST Daphne Shahid MD POINT OF CARE TEST ORDERABLE S Performing Organization Address City/[facility]/[place] [address] (ABNORMAL) POCT Glucose (07/07/2017 2:08 AM EST) P athologist Signature POC Glucose 200 (H) 65 - 199 [facility] mg/dL [facility] LABOR[facility] Comment: Supplemental ranges: <140 mg/dL before meals <180 mg/dL all other times of the day Specimen Anatomical Collection Method Collection Time Receive d Time (Source) Location / / Volume Laterality Blood specimen 07/07/2017 2:08 AM 017 2:08 (specimen) EST AM EST Daphne Shahid MD POINT OF CARE TEST ORDERABLE S Performing Organization Address City/[facility]/[place] [address] (ABNORMAL) POCT Glucose (07/07/2017 1:31 AM EST) athologist Signature POC Glucose 209 (H) 65 - 199 [facility] mg/dL [facility] LABOR[facility]ORY Comment: [...] Address City/State/[place] [address] XR Chest PA or [...] Signature POC Glucose 161 65 - 199 [facility] mg/dL [facility] LABORATORY [...] Organization Address City/State/ZIP [place] [address] (ABNORMAL) APTT (07/07/2017 12:00 AM EST) P athologist Signature PTT 103 (H) 25 - 35 sec [facility] LABORATORY Comment: The recommended therapeutic range for fu ll dose, unfractionated heparin at [facility] is 80 ? [...] Shahid MD HEMATOLOGY ORDERABLES Performing Organization Address City/[facility]/ZIP Code Phon e Number [address] POCT Glucose (07/06/2017 9:55 PM EST) athologist Signature POC Glucose 109 65 - 199 [facility] mg/dL [facility] LAB[facility] Comment: Supplemental ranges: <140 mg/dL before meals <180 mg/dL all other times of the day Specimen Anatomical Collection Method Collection Time Receive d Time (Source) Location / / Volume Laterality Blood specimen 07/06/2017 9:55 PM 017 9:55 (specimen) EST PM EST Daphne Shahid MD POINT OF CARE TEST ORDERABLE S Performing Organization Address City/[facility]/ZIP Code Phon e Number [address] POCT Glucose (07/06/2017 9:04 PM EST) athologist Signature POC Glucose 120 65 - 199 [facility] mg/dL [facility] LABOR[facility] Comment: Supplemental ranges: <140 mg/dL before meals <180 mg/dL all other times of the day Specimen Anatomical Collection Method Collection Time Receive d Time (Source) Location / / Volume Laterality Blood specimen 07/06/2017 9:04 PM 017 9:04 (specimen) EST PM EST Daphne Shahid MD POINT OF CARE TEST ORDERABLE S Performing Organization Address City/[facility]/ZIP Code Phon e Number [address] POCT Glucose (07/06/2017 7:45 PM EST) athologist Signature POC Glucose 158 65 - 199 [facility] mg/dL [facility] LABORATORY Comment: Supplemental ranges: <140 mg/dL before meals <180 mg/dL all other times of the day Specimen Anatomical Collection Method Collection Time Receive d Time (Source) Location / / Volume Laterality Blood specimen 07/06/2017 7:45 PM 017 7:45 (specimen) EST PM EST Daphne Shahid MD POINT OF CARE TEST ORDERABLE S Performing Organization Address [facility]/ZIP [facility] [place] [place] [address] Potassium (07/06/2017 7:40 PM EST) athologist Signature Potassium 3.9 3.5 - 5.0 [facility] mmol/L [facility] LABORAT[facility] Comment: Please note: ??Patients [...] Shahid MD CHEMISTRY ORDERABLES Performing Organization Address City/[facility] [place] [address] (ABNORMAL) Cardiac Enzymes (LEB/CGP) (07/06/2017 7:40 PM EST) athologist Signature Troponin-T 2.27 (H) 0.00 - [facility] 0.00 ng/mL [facility] LABORATORY Comment: The 99th percentile for [...] additional sample may be indicated. Reference: Third [place] Definition of Myocardial Infarction. Journal of the [place] [employer] 2012;60:1581-98 CK, Total 93 0 - 200 unit/L [facility] LABORATORY Specimen Anatomical Collection Method Collection Time Receive d Time (Source) Location / / Volume Laterality Blood specimen 07/06/2017 7:40 PM 017 7:52 (specimen) EST PM EST Resulting Agency Comment Spec In Lab Daphne Shahid MD CHEMISTRY ORDERABLES Performing Organization Address City/[facility]/[place] [address] (ABNORMAL) POCT Glucose (07/06/2017 7:13 PM EST) athologist Signature POC Glucose 200 (H) 65 - 199 [facility] mg/dL [facility] LABORATORY Comment: Supplemental ranges: <140 mg/dL before meals <180 mg/dL all other times of the day Specimen Anatomical Collection Method Collection Time Receive d Time (Source) Location / / Volume Laterality Blood specimen 07/06/2017 7:13 PM 017 7:13 (specimen) EST PM EST Daphne Shahid MD POINT OF CARE TEST ORDERABLE S Performing Organization Address City/[facility]/[place] [address] (ABNORMAL) APTT (07/06/2017 6:15 PM EST) P athologist Signature PTT 94 (H) 25 - 35 sec [facility] LABORATORY Comment: The recommended therapeutic range for fu ll dose, unfractionated heparin at [facility] is 80 ? [...] Address City/State/[place] [address] (ABNORMAL) POCT Glucose (07/06/2017 6:03 PM EST) athologist Signature POC Glucose 236 (H) 65 - 199 [facility] mg/dL [facility] LABOR[facility] Comment: [...] Address City/State/[place] [address] (ABNORMAL) POCT Glucose (07/06/2017 5:01 PM EST) P athologist Signature POC Glucose 235 (H) 65 - 199 [facility] mg/dL [facility] LABOR[facility] Comment: [...] Address City/State/[place] [address] (ABNORMAL) POCT Glucose (07/06/2017 4:06 PM EST) P athologist Signature POC Glucose 202 (H) 65 - 199 [facility] mg/dL [facility] Comment: [...] Address City/State/[place] [address] POCT Glucose (07/06/2017 2:59 PM EST) athologist Signature POC Glucose 178 65 - 199 [facility] mg/dL [facility] LABOR[facility]ORY Comment: Supplemental ranges: <140 mg/dL before meals <180 mg/dL all other times of the day Specimen Anatomical Collection Method Collection Time Receive d Time (Source) Location / / Volume Laterality Blood specimen 07/06/2017 2:59 PM 017 2:59 (specimen) EST PM EST Daphne Shahid MD POINT OF CARE TEST ORDERABLE S Performing Organization Address City/[facility]/[place] [address] (ABNORMAL) Cardiac Enzymes (LEB/CGP) (07/06/2017 2:10 PM EST) athologist Signature Troponin-T 2.34 (H) 0.00 - [facility] 0.00 ng/mL [facility] LABOR[facility] Comment: The 99th percentile for [...] additional sample may be indicated. Reference: Third [place] Definition of Myocardial Infarction. Journal of the [place] [employer] 2012;60:1581-98 CK, Total 101 0 - 200 unit/L [facility] LABORATORY Specimen Anatomical Collection Method Collection Time Receive d Time (Source) Location / / Volume Laterality Blood specimen 07/06/2017 2:10 PM 017 2:26 (specimen) EST PM EST Resulting Agency Comment Spec In Lab Daphne Shahid MD CHEMISTRY ORDERABLES Performing Organization Address City/[facility]/ZIP [facility] [place] [place] Phon e Number [address] POCT Glucose (07/06/2017 2:08 PM EST) athologist Signature POC Glucose 192 65 - 199 [facility] Comment: Supplemental ranges: <140 mg/dL before meals <180 mg/dL all other times of the day Specimen Anatomical Collection Method Collection Time Receive d Time (Source) Location / / Volume Laterality Blood specimen 07/06/2017 2:08 PM 017 2:08 (specimen) EST PM EST Daphne Shahid MD POINT OF CARE TEST ORDERABLE S Performing Organization Address City/[facility]/[place] [address] POCT Glucose (07/06/2017 1:04 PM EST) athologist Signature POC Glucose 162 65 - 199 [facility] Comment: [...] Address City/State/ZIP Code Phon e Number [address] POCT Glucose (07/06/2017 12:05 PM EST) P athologist Signature POC Glucose 196 65 - 199 [facility]/dL [facility] Comment: Supplemental ranges: <140 mg/dL before meals <180 mg/dL all other times of the day Specimen Anatomical Collection Method Collection Time Receive d Time (Source) Location / / Volume Laterality Blood specimen 07/06/2017 12:05 7 (specimen) PM EST 12:05 PM EST Daphne Shahid MD POINT OF CARE TEST ORDERABLE S Performing Organization Address [facility]/ZIP Code Phon e Number [address] EKG 12 Lead (07/06/2017 12:00 PM EST) Component Value Ref Range Test Analysis Performed Pathologis t Method Time At Signature Ventricular rate 91 BPM MUSE SYSTEM Atrial Rate 91 BPM MUSE SYSTEM P-R Interval 140 ms MUSE SYSTEM QRS Duration 94 ms MUSE SYSTEM Q-T Interval 394 ms MUSE SYSTEM QTC Calculated 484 ms MUSE SYSTEM (Bezet) Calculated P Clover 36 degrees MUSE SYSTEM Calculated R Clover -19 degrees MUSE SYSTEM Calculated T Clover 104 degrees MUSE SYSTEM INTERPRETATION Normal sinus rhythm MUSE SYSTEM 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) ST & T wave abnormality, consider lateral ischemia Abnormal ECG When compared with ECG of 05-JUL-2017 20:39, No significant change was found Confirmed by MD Luci, Taurus Braun ([id number]) on 07/06/2017 5:07:33 PM Specimen Anatomical Collection Method Collection Time Receive d Time (Source) Location / / Volume Laterality 07/06/2017 12:00 07/06/2017 5:07 PM EST PM EST Daphne Shahid MD ECG ORDERABLES Performing Organization Address City/[facility]/ZIP Code Phon e Number MUSE SYSTEM ABORH Recheck Status (07/06/2017 12:00 PM EST) Patholo gist Method Time Signature ABORH Type Completed [facility] LABORATORY Specimen Anatomical Collection Method Collection Time Receive d Time (Source) Location / / Volume Laterality Blood specimen 07/06/2017 12:00 7 (specimen) PM EST 12:24 PM EST Resulting Agency Comment Spec In Lab Daphne Shahid MD BLOOD BANK ORDERABLES Performing Organization Address City/[facility]/[place] [address] Antibody screen (07/06/2017 12:00 PM EST) Patholo gist Method Time Signature Ab Screen Negative [facility] LABORATORY Expires at 07/09/2017 [facility] [id number] on: [facility] LABORATORY Specimen Anatomical Collection Method Collection Time Receive d Time (Source) Location / / Volume Laterality Blood specimen 07/06/2017 12:00 7 (specimen) PM EST 12:24 PM EST Resulting Agency Comment Spec In Lab Daphne Shahid MD BLOOD BANK ORDERABLES Performing Organization Address City/[facility]/[place] [address] ABO/Rh Typing (07/06/2017 12:00 PM EST) P athologist Signature ABORh Type O Pos [facility] LABORATORY Specimen Anatomical Collection Method Collection Time Receive d Time (Source) Location / / Volume Laterality Blood specimen 07/06/2017 12:00 7 (specimen) PM EST 12:24 PM EST Resulting Agency Comment Spec In Lab Daphne Shahid MD BLOOD BANK ORDERABLES Performing Organization Address City/[facility] [place] [address] Prothrombin Time (07/06/2017 11:24 AM EST) P athologist Signature PT 13.3 11.8 - 14.0 [facility] LABORATORY INR 1.0 0.9 - 1.1 [facility] LABORATORY [...] Shahid MD HEMATOLOGY ORDERABLES Performing Organization Address City/[facility]/[place] [address] (ABNORMAL) APTT (07/06/2017 11:24 AM EST) P athologist Signature PTT 52 (H) 25 - 35 sec [facility] LABORATORY Comment: The recommended therapeutic range for fu ll dose, unfractionated heparin at [facility] is 80 ? [...] Shahid MD HEMATOLOGY ORDERABLES Performing Organization Address City/[facility]/[place] [address] POCT Glucose (07/06/2017 11:02 AM EST) P athologist Signature POC Glucose 187 65 - 199 [facility] mg/dL [facility] LABORATORY Comment: Supplemental ranges: <140 mg/dL before meals <180 mg/dL all other times of the day Specimen Anatomical Collection Method Collection Time Receive d Time (Source) Location / / Volume Laterality Blood specimen 07/06/2017 11:02 7 (specimen) AM EST 11:02 AM EST Daphne Shahid MD POINT OF CARE TEST ORDERABLE S Performing Organization Address City/[facility]/[place] [address] POCT Glucose (07/06/2017 10:18 AM EST) athologist Signature POC Glucose 193 65 - 199 [facility] LAB[facility] Comment: [...] Address City/State/[place] [address] POCT Glucose (07/06/2017 9:25 AM EST) athologist Signature POC Glucose 182 65 - 199 [facility] Comment: Supplemental ranges: <140 mg/dL before meals <180 mg/dL all other times of the day Specimen Anatomical Collection Method Collection Time Receive d Time (Source) Location / / Volume Laterality Blood specimen 07/06/2017 9:25 AM 017 9:25 (specimen) EST AM EST Daphne Shahid MD POINT OF CARE TEST ORDERABLE S Performing Organization Address City/[facility] [place] [address] (ABNORMAL) Cardiac Enzymes (LEB/CGP) (07/06/2017 8:10 AM EST) athologist Signature Troponin-T 2.26 (H) 0.00 - [facility] 0.00 ng/mL [facility] LABOR[facility]ORY Comment: The 99th percentile for [...] additional sample may be indicated. Reference: Third [place] Definition of Myocardial Infarction. Journal of the [place] [employer] 2012;60:1581-98 CK, Total 124 0 - 200 unit/L [facility] LABORATORY Specimen Anatomical Collection Method Collection Time Receive d Time (Source) Location / / Volume Laterality Blood specimen 07/06/2017 8:10 AM 017 8:23 (specimen) EST AM EST Resulting Agency Comment Spec In Lab Daphne Shahid MD CHEMISTRY ORDERABLES Performing Organization Address City/[facility]/[place] [address] Magnesium (07/06/2017 8:10 AM EST) P athologist Signature Magnesium 0.84 0.69 - 1.07 [facility] mmol/L [facility] LABORATORY Specimen Anatomical Collection Method Collection Time Receive d Time (Source) Location / / Volume Laterality Blood specimen 07/06/2017 8:10 AM 017 8:21 (specimen) EST AM EST Resulting Agency Comment Spec In Lab Daphne Shahid MD CHEMISTRY ORDERABLES Performing Organization Address City/[facility]/ZIP [facility] [place] [place] [address] (ABNORMAL) Basic Metabolic Panel (non-fasting) (07/06/2017 8:10 AM EST) athologist Signature Glucose Lvl 199 65 - 199 [facility] mg/dL [facility] LABORATORY Comment: Diabetes: >=200 mg/dL plus symp toms BUN 16 10 - 20 mg/dL [facility] LABORATORY Creatinine 1.04 0.80 - 1.50 [...] estions. Chloride 101 98 - 107 mmol/L [facility] LABORATORY CO2 27 22 - 31 mmol/L [facility] LABORATORY Anion Gap 13 5 - 15 mmol/L [facility] LABORATORY Calcium 8.1 (L) 8.5 - 10.5 mg/dL [facility] LABORATORY Estimated GFR >60 >=60 [facility] LABORATORY Comment: The reported eGFR should be multiplied b y 1.2 for patients. The MDRD is not an appropriate measure o f renal function for patients with body mass extremes or in patients with acute kidney failure. http://X-IO/DHnkdep http://X-IO/DHMCnkf Specimen Anatomical Collection Method Collection Time Receive d Time (Source) Location / / Volume Laterality Blood specimen 07/06/2017 8:10 AM 017 8:21 (specimen) EST AM EST Resulting Agency Comment Spec In Lab Daphne Shahid MD CHEMISTRY ORDERABLES Performing Organization Address City/State/[place] [address] POCT Glucose (07/06/2017 7:34 AM EST) P athologist Signature POC Glucose 198 65 - 199 [facility] mg/dL [facility] LABORATORY [...] Organization Address City/State/ZIP [place] [address] [facility] [address] POCT Glucose (07/06/2017 7:03 AM EST) P athologist Signature POC Glucose 181 65 - 199 [facility]/dL [facility] LAB[facility] Comment: [...] Address City/State/ZIP Code Phon e Number [address] XR Chest PA or [...] Signature POC Glucose 172 65 - 199 [facility]dL [facility] LAB[facility]ORY Comment: [...] Address City/State/[place] [address] POCT Glucose (07/06/2017 5:08 AM EST) athologist Signature POC Glucose 154 65 - 199 [facility] mg/dL [facility] LABOR[facility]ORY Comment: [...] Address City/State/[place] [address] POCT Glucose (07/06/2017 4:05 AM EST) athologist Signature POC Glucose 142 65 - 199 [facility] mg/dL [facility] LABOR[facility]ORY Comment: Supplemental ranges: <140 mg/dL before meals <180 mg/dL all other times of the day Specimen Anatomical Collection Method Collection Time Receive d Time (Source) Location / / Volume Laterality Blood specimen 07/06/2017 4:05 AM 017 4:05 (specimen) EST AM EST Daphne Shahid MD POINT OF CARE TEST ORDERABLE S Performing Organization Address City/[facility]/ZIP Code Phon e Number [address] POCT Glucose (07/06/2017 3:00 AM EST) athologist Signature POC Glucose 116 65 - 199 [facility] mg/dL [facility] LABORATORY Comment: Supplemental ranges: <140 mg/dL before meals <180 mg/dL all other times of the day Specimen Anatomical Collection Method Collection Time Receive d Time (Source) Location / / Volume Laterality Blood specimen 07/06/2017 3:00 AM 017 3:00 (specimen) EST AM EST Daphne Shahid MD POINT OF CARE TEST ORDERABLE S Performing Organization Address [facility]/ZIP [place] [address] Potassium (07/06/2017 2:20 AM EST) athologist [facility] Potassium 3.9 3.5 - 5.0 [facility] mmol/L [facility] LABORATORY Comment: Please note: ??Patients [...] Shahid MD CHEMISTRY ORDERABLES Performing Organization Address City/[facility]/ZIP Code Phon e Number [address] Differential, Automated (07/06/2017 2:20 AM EST) athologist Signature Neutrophils % 72.9 % [facility] LABORATORY Neutr Abs (ANC) 5.53 1.70 - [facility] 6.10 [facility] x10(3)/[facility] LABORATORY Lymphocytes % 16.4 % [facility] LABORATORY Lymphocytes Abs 1.2 0.9 - 3.2 [facility] x10(3)/[facility] LABORATORY Monocytes % 9.4 % [facility] LABORATORY Monocyte Abs 0.7 0.3 - 0.9 [facility] x10(3)/[facility] LABORATORY Eosinophils % 0.5 % [facility] LABORATORY Eosinophils Abs 0.0 0.0 - 0.4 [facility] x10(3)/[facility] LABORATORY Basophils % 0.4 % [facility] LABORATORY Basophils Abs 0.0 0.0 - 0.1 [facility] x10(3)/[facility] LABORATORY Immature Gran % 0.40 % [facility] LABORATORY Comment: Immature granulocytes(IG's)percentage an d absolute count will include metamyelocytes, myelocytes, and promyelo cytes. Blood smears from CBCs yielding IG's will be scanned manually for concor dance. If this scan disagrees with the automated IG or if promyelocytes are not ed, a manual differential will be performed. Melisa Gran Abs 0.03 0.00 - 0.04 x10(3)/[facility] MAR Y [facility] LABORATORY Specimen Anatomical Collection Method Collection Time Receive d Time (Source) Location / / Volume Laterality Blood specimen 07/06/2017 2:20 AM 017 2:33 (specimen) EST AM EST Resulting Agency Comment Spec In Lab Daphne Shahid MD HEMATOLOGY ORDERABLES Performing Organization Address City/State/ZIP [place] [address] (ABNORMAL) Hemogram (07/06/2017 2:20 AM EST) Analysis Performed At Patho logist Time Signature WBC 7.6 4.0 - 9.5 [facility] x10(3)/[facility] LABORATORY RBC 4.52 (L) 4.58 - [facility] 5.54 [facility] x10(6)/[facility] LABORATORY Hemoglobin 13.4 (L) 13.7 - [facility] 16.5 gm/dL [facility] LABORATORY Hematocrit 39.7 (L) 40.5 - [facility] 48.5 % [facility] LABORATORY MCV 87.8 82.9 - [facility] 93.1 [facility] LABORATORY MCH 29.6 27.5 - [facility] 32.1 pg [facility] LABORATORY MCHC 33.8 32.0 - [facility] 35.7 gm/dL [facility] LABORATORY Platelets 189 145 - 357 [facility] x10(3)/[facility] LABORATORY RDWSD 45.6 (H) 36.0 - [facility] 45.0 [facility] LABORATORY RDWCV 14.3 (H) 11.4 - [facility] 13.8 % [facility] LABORATORY MPV 9.1 7.6 - 12.9 [facility] LABORATORY nRBC % Auto 0.0 % [facility] LABORATORY nRBC Abs Auto 0.000 0.000 - [facility] 0.000 [facility] x10(3)/[facility] LABORATORY Specimen Anatomical Collection Method Collection Time Receive d Time (Source) Location / / Volume Laterality Blood specimen 07/06/2017 2:20 AM 017 2:33 (specimen) EST AM EST Resulting Agency Comment Spec In Lab Daphne Shahid MD HEMATOLOGY ORDERABLES Performing Organization Address City/State/ZIP [place] [address] (ABNORMAL) APTT (07/06/2017 2:20 AM EST) athologist Signature PTT 52 (H) 25 - 35 sec [facility] LABORATORY Comment: The recommended therapeutic range for fu ll dose, unfractionated heparin at [facility] is 80 ? [...] Address City/State/ZIP Code Phon e Number [address] POCT Glucose (07/06/2017 2:20 AM EST) athologist [facility] POC Glucose 115 65 - 199 [facility]dL [facility] LABORATORY Comment: Supplemental ranges: <140 mg/dL before meals <180 mg/dL all other times of the day Specimen Anatomical Collection Method Collection Time Receive d Time (Source) Location / / Volume Laterality Blood specimen 07/06/2017 2:20 AM 017 2:20 (specimen) EST AM EST Daphne Shahid MD POINT OF CARE TEST ORDERABLE S Performing Organization Address City/[facility]/[place] [address] (ABNORMAL) Cardiac Enzymes (LEB/CGP) (07/06/2017 2:20 AM EST) athologist [facility] Troponin-T 2.13 (H) 0.00 - [place] [facility] 0.00 ng/mL [facility] LABORATORY Comment: The 99th percentile for [...] additional sample may be indicated. Reference: Third [place] Definition of Myocardial Infarction. Journal of the [place] College [employer] 2012;60:1581-98 CK, Total 129 0 - 200 unit/L [facility] LABORATORY Specimen Anatomical Collection Method Collection Time Receive d Time (Source) Location / / Volume Laterality Blood specimen 07/06/2017 2:20 AM 017 2:33 (specimen) EST AM EST Resulting Agency Comment Spec In Lab Daphne Shahid MD CHEMISTRY ORDERABLES Performing Organization Address City/State/ZIP [place] [address] (ABNORMAL) Hemoglobin A1c (07/06/2017 [...] Mellitus, Diabetes Care 2013; 36: Suppl. 1, J74-07 Est Avg Gluc See note mg/dL [facility] LABORATORY Comment: Estimated Average Glucose [...] with hemoglobinopathies. Additional resources are available on [facility] website. Macario HAMMOND, Ruthann J, Deysi R, et al. ??Tr anslating the A1C assay into estimated average glucose values. ??Diabetes Care 2008:31(8):5316-3266. Specimen Anatomical Collection Method Collection Time Receive d Time (Source) Location / / Volume Laterality Blood specimen 07/06/2017 2:20 AM 017 2:34 (specimen) EST AM EST Resulting Agency Comment Spec In Lab Daphne Shahid MD CHEMISTRY ORDERABLES Performing Organization Address City/State/[place] [address] (ABNORMAL) Lipid Panel (07/06/2017 2:20 AM EST) [facility] gist Method Time Signature Chol, Total 150 <=239 [place] mg/dL [facility] LABORATORY Triglycerides 129 <=199 [facility] mg/dL [facility] LABORATORY HDL 32 (L) >=40 [place] mg/dL [facility]OR[facility] LDL Cholesterol 92 <=190 [facility] mg/dL [facility] LABORATORY Chol/HDL Ratio 4.7 ratio [facility] LABORATORY Lipid See Note [place] Interpretation [facility] LABORATORY Comment: Lipid management should be guided by a p atient? s ASCVD risk, goals and preferences. ACC/AHA Guidelines recommend high intens ity statin if clinical ASCVD or LDL greater than or equal to 190 mg/dL. http://[employer] Analog Microelectronicsurl.com/PFY-XPL-Rkqhrrxue Adults aged 40-75 with LDL 70-189 mg/dL should have their 10 year ASCVD risk estimated with the ACC/AHA ASCVD risk es timator http://tools.acc.org/LSKYI-Crxc-Tgzyzmvw r/ Statin should be discussed if risk [...] Shahid MD CHEMISTRY ORDERABLES Performing Organization Address City/[facility]/ZIP Code Phon e Number [address] POCT Glucose (07/06/2017 1:09 AM EST) P athologist Signature POC Glucose 121 65 - 199 [facility]dL [facility] LABORATORY Comment: Supplemental ranges: <140 mg/dL before meals <180 mg/dL all other times of the day Specimen Anatomical Collection Method Collection Time Receive d Time (Source) Location / / Volume Laterality Blood specimen 07/06/2017 1:09 AM 017 1:09 (specimen) EST AM EST Daphne Shahid MD POINT OF CARE TEST ORDERABLE S Performing Organization Address City/[facility]/ZIP Code Phon e Number [address] POCT Glucose (07/06/2017 12:06 AM EST) P athologist Signature POC Glucose 147 65 - 199 [facility] mg/dL [facility] LABORATORY Comment: Supplemental ranges: <140 mg/dL before meals <180 mg/dL all other times of the day Specimen Anatomical Collection Method Collection Time Receive d Time (Source) Location / / Volume Laterality Blood specimen 07/06/2017 12:06 7 (specimen) AM EST 12:06 AM EST Daphne Shahid MD POINT OF CARE TEST ORDERABLE S Performing Organization Address City/[facility]/ZIP Code Phon e Number [place] [id number] HOSPITAL LAB[address]ATORY Drive (ABNORMAL) POCT Glucose (07/05/2017 10:56 PM EST) athologist Signature POC Glucose 200 (H) 65 - 199 [facility] RYAN mg/dL [facility] LABORATORY Comment: [...] Address City/State/[place] [address] (ABNORMAL) POCT Glucose (07/05/2017 10:05 PM EST) athologist Signature POC Glucose 225 (H) 65 - 199 [facility] mg/dL [facility] LABORATORY Comment: [...] Address City/State/[place] [address] (ABNORMAL) POCT Glucose (07/05/2017 9:02 PM EST) athologist Signature POC Glucose 301 (H) 65 - 199 [place] mg/dL [facility] LABORATORY Comment: [...] Organization Address City/State/ZIP [place] [address] XR Chest PA or [...] 474 ms MUSE SYSTEM (Bezet) Calculated P [place] 50 degrees MUSE SYSTEM Calculated R [place] -28 degrees MUSE SYSTEM Calculated T [place] 90 degrees MUSE SYSTEM INTERPRETATION Sinus tachycardia [...] (ABNORMAL) Differential, Automated (07/05/2017 8:20 PM EST) [facility] Method Time Signature Neutrophils % 88.4 % [facility] LABORATORY Neutr Abs (ANC) 9.08 (H) 1.70 - [facility] 6.10 [facility] x10(3)/[facility] L LABORATORY Lymphocytes % 7.0 % [facility] LABORATORY Lymphocytes Abs 0.7 (L) 0.9 - 3.2 [facility] x10(3)/[facility] LABORATORY Monocytes % 3.7 % [facility] LABORATORY Monocyte Abs 0.4 0.3 - 0.9 [facility] x10(3)/[facility] LABORATORY Eosinophils % 0.1 % [facility] LABORATORY Eosinophils Abs 0.0 0.0 - 0.4 [facility] x10(3)/[facility] LABORATORY Basophils % 0.2 % [facility] LABORATORY Basophils Abs 0.0 0.0 - 0.1 [facility] x10(3)/[facility] LABORATORY Immature Gran % 0.60 % [facility] LABORATORY Comment: Immature [...] Organization Address City/State/ZIP [place] [address] (ABNORMAL) Hemogram (07/05/2017 8:20 PM EST) Analysis Performed At Patho logist Time Signature WBC 10.3 (H) 4.0 - 9.5 [facility] x10(3)/[facility] LABORATORY RBC 4.64 4.58 - [facility] RYAN 5.54 [facility] x10(6)/[facility] LABORATORY Hemoglobin 14.1 13.7 - [facility] 16[facility] gm/dL [facility] LABORATORY Hematocrit 40.8 40.5 - [facility] 48.5 % [facility] LABORATORY MCV 87.9 82.9 - [facility] 93.1 [facility] LABORATORY MCH 30.4 27.5 - [facility] RYAN 32.1 pg [facility] LABORATORY MCHC 34.6 32.0 - [facility] RYAN 35.7 gm/dL [facility] LABORATORY Platelets 204 145 - 357 [facility] x10(3)/[facility] LABORATORY RDWSD 46.1 (H) 36.0 - [facility] 45.0 [facility] LABORATORY RDWCV 14.5 (H) 11.4 - [facility] RYAN 13.8 % [facility] LABORATORY MPV 9.7 7.6 - 12.9 [facility] LABORATORY nRBC % Auto 0.0 % [facility] LABORATORY nRBC Abs Auto 0.000 0.000 - [facility] RYAN 0.000 [facility] x10(3)/[facility] LABORATORY Specimen Anatomical Collection Method Collection Time Receive d Time (Source) Location / / Volume Laterality Blood specimen 07/05/2017 8:20 PM 017 8:27 (specimen) EST PM EST Resulting Agency Comment Spec In Lab Daphne Shahid MD HEMATOLOGY ORDERABLES Performing Organization Address City/State/ZIP Code Phon e Number [place] [phone] HOSPITAL LABOR[address]ORY Drive APTT (07/05/2017 8:20 PM EST) athologist Signature PTT 32 25 - 35 sec [facility] LABORATORY Comment: The recommended therapeutic range for fu ll dose, unfractionated heparin at [facility] is 80 ? [...] Shahid MD HEMATOLOGY ORDERABLES Performing Organization Address [facility] [place] [address] (ABNORMAL) Cardiac Enzymes (LEB/CGP) (07/05/2017 8:20 PM EST) athologist Signature Troponin-T 2.11 (H) 0.00 - [facility] 0.00 ng/mL [facility] LABORATORY Comment: The 99th percentile for [...] additional sample may be indicated. Reference: Third [place] Definition of Myocardial Infarction. Journal of the [place] College of [employer]iology 2012;60:1581-98 CK, Total 149 0 - 200 unit/L [facility] LABORATORY Specimen Anatomical Collection Method Collection Time Receive d Time (Source) Location / / Volume Laterality Blood specimen 07/05/2017 8:20 PM 017 8:27 (specimen) EST PM EST Resulting Agency Comment Spec In Lab Daphne Shahid MD CHEMISTRY ORDERABLES Performing Organization Address City/[facility]/[place] [address] (ABNORMAL) Magnesium (07/05/2017 8:20 PM EST) P athologist Signature Magnesium 0.68 (L) 0.69 - 1.07 [facility] mmol/L [facility] LABORATORY Specimen Anatomical Collection Method Collection Time Receive d Time (Source) Location / / Volume Laterality Blood specimen 07/05/2017 8:20 PM 017 8:27 (specimen) EST PM EST Resulting Agency Comment Spec In Lab Daphne Shahid MD CHEMISTRY ORDERABLES Performing Organization Address City/[facility]/[place] [address] (ABNORMAL) Basic Metabolic Panel (non-fasting) (07/05/2017 8:20 PM EST) P athologist Signature Glucose Lvl 321 (H) 65 - 199 [facility] mg/dL [facility] LABORATORY Comment: Diabetes: >=200 mg/dL plus symp toms BUN 20 10 - 20 mg/dL [facility] LABORATORY Creatinine 1.12 0.80 - 1.50 mg/dL [facility] LABORATORY Sodium 139 135 - 145 mmol/L [facility] LABORATORY Potassium 3.8 3.5 - 5.0 mmol/L [facility] LABORATORY Comment: Please note: ??Patients with WBC >100,00 0 may have falsely elevated Potassium levels. ??For accurate Potassium quantif ication in these patients send serum separator tube (gold top) for subsequent determinations. ??Contact the Clinical Chemistry Laboratory if there are any qu estions. Chloride 98 98 - 107 mmol/L [facility] LABORATORY CO2 27 22 - 31 mmol/L [facility] LABORATORY Anion Gap 14 5 - 15 mmol/L [facility] LABORATORY Calcium 8.1 (L) 8.5 - 10.5 mg/dL [facility] LABORATORY Estimated GFR >60 >=60 [facility] LABORATORY Comment: The reported eGFR should be multiplied b y 1.2 for patients. The MDRD is not an appropriate measure o f renal function for patients with body mass extremes or in patients with acute kidney failure. http://X-IO/DHnkdep http://X-IO/[facility]nkf Specimen Anatomical Collection Method Collection Time Receive d Time (Source) Location / / Volume Laterality Blood specimen 07/05/2017 8:20 PM 017 8:27 (specimen) EST PM EST Resulting Agency Comment Spec In Lab Daphne Shahid MD CHEMISTRY ORDERABLES Performing Organization Address City/State/ZIP Code Phon e Number [address] (ABNORMAL) POCT Glucose (07/05/2017 7:32 PM EST) P athologist Signature POC Glucose 296 (H) 65 - 199 [facility] mg/dL [facility] LABORATORY Comment: Supplemental ranges: <140 mg/dL before meals <180 mg/dL all other times of the day Specimen Anatomical Collection Method Collection Time Receive d Time (Source) Location / / Volume Laterality Blood specimen 07/05/2017 7:32 PM 017 7:32 (specimen) EST PM EST Daphne Shahid MD POINT OF CARE TEST ORDERABLE S Performing Organization Address City/[facility]/[place] [address] CARDIAC CATHETERIZATION (07/05/2017 6:47 PM EST) Specimen (Source) Anatomical Location Collection Method / Collectio n Time Received Time / Laterality Volume Narrative CARDIOMAC SYSTEM - 07/05/2017 7:27 PM ES T ?[facility] ? Cardiac Cathete rization/Intervention Report ? Patient Name: Natalya, Gregory ? Procedure Date: 07/05/2017 ? A #: [id number] ? Primary Physician: Clarisa, Jet T ? Case #: [id number] ? File Name: [id number] ? Catheterization Order Number: [id number] ? [facility] ?[facility] ? Final Report [place], [place] ? Patient Name: ? Gregory Natalya ?ID#: ?[id number] ? : ?1945 ? Procedure Date: ? [...] presented with: non -STEMI (w/i 7 days). [place] ?[employer]iovascular Society angina c lass was IV. 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 ? Jet Mckenna M.D. ? Electronically Signed by: Jet bunch M.D. ? Report Finalized: 07/05/2017 ??19:23 ? Report Last Ammended: 10/26/2017 ??10:29 ? Procedure Note Jet Mckenna MD - 10/26/2017Formatt ing of this note might be different from the original. [facility] Cardiac Catheterization/Intervention Re port Patient Name: Gregory Hoang Procedure Date: 07/05/2017 A #: [id number] Primary Physician: Jet Mckenna Case #: [id number] File Name: [id number] Catheterization Order Number: [id number] [facility] Appeals Board [facility] Final Report [place], [place] Patient Name: Gregory Hoang ID#: [id number] 3- : 1945 Procedure Date: July 05, [...] presented with: non-STEMI ( w/i 7 days). [place] [employer] angina class was IV. 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 Jet Mckenna M.D. Electronically Signed by: [...] E ? (Age): 1945(72y) Med Rec#: ? [id number] ?Sex: ?M ? Site Loc: ? [facility] ?Ht / Wt: ??173(cm)/86(kg) Pt. Loc: ?CCU ? BSA: ?2 Study Date: ?? 07/05/2017 ?Pt. Type: Inpatient Tape: ? Referring: Daphne Shahid ([id number]) Referring: MANDA ALCANTAR Reading: Blade Preston ([id number]) Toll Test Worker: Dayami Paula BA, [facility] Diagnosis: *ICD-10-PCS Non-ST elevation (NSTEMI) [...] E-wave Vmax ?0.8 ?m/sec ? MV deceleration [id number] ?msec ? MV A-wave Vmax ?0.8 ?m/sec [...] ? Mid-Inferior ?Akinetic ? Mid-Inferoseptal ?Hypokinetic ? [place]-Septal ? Akinetic ? [place]-Anterior ? Hypokinetic ? [place]-Lateral ?Hypokinetic ? [place]-Inferior ? Akinetic ? [place]-Tip ?Akinetic ? This report has been electronically sign ed by: _ Blade Preston MD ? 07/06/2017 08 :53:15 Images reviewed and interpretation verif ied [facility] Cardiac Ultrasound Laboratory Procedure Note Blade Preston MD - 07/06/2017Formatt ing of this note might be different from the original. Procedure: Transthoracic Echocardiogram Patient: NATALYA MCBRIDE(Age): [birth year]72y) Med Rec#: [id number] Sex: M Site Loc: [facility] Ht / Wt: 173(cm)/86(kg) Pt. Loc: CCU BSA: 2 Study Date: 07/05/2017 Pt. Type: Inpatie nt Tape: Referring: Daphne Shahid ([id number]) Referring: MANDA ALCANTAR Reading: Blade Preston ([id number]) Toll Test Worker: Dayami Paula BA [facility] Diagnosis: *ICD-10-PCS Non-ST elevation (NSTEMI) [...] MV E-wave Vmax 0.8 m/sec MV deceleration [id number] msec MV A-wave Vmax 0.8 m/sec MV [...] Hypokinetic Mid-Posterolateral Hypokinetic Mid-Inferior Akinetic Mid-Inferoseptal Hypokinetic [place]-Septal Akinetic [place]-Anterior Hypokinetic [place]-Lateral Hypokinetic [place]-Inferior Akinetic [place]-Tip Akinetic This report has been electronically sign ed by: _ Blade Preston MD 07/06/2017 08:53:15 Images reviewed and interpretation verif ied [facility] Cardiac Ultrasound Laboratory Daphne Shahid MD ECHO ORDERABLES Performing Organization Address City/State/ZIP Code Phon e Number [facility] Differential, Automated (07/05/2017 4:55 PM EST) P athologist Signature Neutrophils % 77.0 % [facility] LABORATORY Neutr Abs (ANC) 5.26 1.70 - [facility] 6.10 [facility] x10(3)/[facility] LABORATORY Lymphocytes % 13.3 % [facility] LABORATORY Lymphocytes Abs 0.9 0.9 - 3.2 [facility] x10(3)/[facility] LABORATORY Monocytes % 8.2 % [facility] LABORATORY Monocyte Abs 0.6 0.3 - 0.9 [facility] x10(3)/[facility] LABORATORY Eosinophils % 0.7 % [facility] LABORATORY Eosinophils Abs 0.0 0.0 - 0.4 [facility] x10(3)/[facility] LABORATORY Basophils % 0.4 % [facility] LABORATORY Basophils Abs 0.0 0.0 - 0.1 [facility] x10(3)/[facility] LABORATORY Immature Gran % 0.40 % [facility] LABORATORY Comment: Immature granulocytes(IG's)percentage an d absolute count will include metamyelocytes, myelocytes, and promyelo cytes. Blood smears from CBCs yielding IG's will be scanned manually for concor dance. If this scan disagrees with the automated IG or if promyelocytes are not ed, a manual differential will be performed. Melisa Gran Abs 0.03 0.00 - 0.04 x10(3)/[facility] MAR Y [facility] LABORATORY Specimen Anatomical Collection Method Collection Time Receive d Time (Source) Location / / Volume Laterality Blood specimen 07/05/2017 4:55 PM 017 5:24 (specimen) EST PM EST Resulting Agency Comment Spec In Lab Daphne Shahid MD HEMATOLOGY ORDERABLES Performing Organization Address City/State/ZIP [place] [address] (ABNORMAL) Hemogram (07/05/2017 4:55 PM EST) Analysis Performed At Patho logist Time Signature WBC 6.8 4.0 - 9.5 [facility] x10(3)/[facility] LABORATORY RBC 4.67 4.58 - [place] [facility] 5.54 [facility] x10(6)/[facility] LABORATORY Hemoglobin 14.0 13.7 - [place] [facility]AN 16.5 gm/dL [facility] LABORATORY Hematocrit 41.0 40.5 - [place] [facility] 48.5 % [facility] LABORATORY MCV 87.8 82.9 - [facility] 93.1 [facility] LABORATORY MCH 30.0 27.5 - [place] [facility] 32.1 pg [facility] LABORATORY MCHC 34.1 32.0 - [place] [facility] 35.7 gm/dL [facility] LABORATORY Platelets 197 145 - 357 [facility] x10(3)/[facility] LABORATORY RDWSD 46.4 (H) 36.0 - [place] RYAN 45.0 [facility] LABORATORY RDWCV 14.5 (H) 11.4 - [facility] 13.8 % [facility] LABORATORY MPV 9.7 7.6 - 12.9 [facility] LABORATORY nRBC % Auto 0.0 % [facility] LABORATORY nRBC Abs Auto 0.000 0.000 [facility] x10(3)/[facility] LABORATORY Specimen Anatomical Collection Method Collection Time Receive d Time (Source) Location / / Volume Laterality Blood specimen 07/05/2017 4:55 PM 017 5:24 (specimen) EST PM EST Resulting Agency Comment Spec In Lab Daphne Shahid MD HEMATOLOGY ORDERABLES Performing Organization Address City/State/ZIP [place] [address] (ABNORMAL) Cardiac Enzymes (LEB/CGP) (07/05/2017 4:55 PM EST) P athologist Signature Troponin-T 1.69 (H) 0.00 - [place] [facility] 0.00 ng/mL [facility] LABORATORY Comment: The 99th percentile for [...] additional sample may be indicated. Reference: Third [place] Definition of Myocardial Infarction. Journal of the [place] [employer] 2012;60:1581-98 CK, Total 191 0 - 200 unit/L [facility] LABORATORY Specimen Anatomical Collection Method Collection Time Receive d Time (Source) Location / / Volume Laterality Blood specimen 07/05/2017 4:55 PM 017 5:56 (specimen) EST PM EST Resulting Agency Comment Spec In Lab Daphne Shahid MD CHEMISTRY ORDERABLES Performing Organization Address City/State/ZIP Code Phon e Number [address] (ABNORMAL) pro-Brain Natriuretic Peptide (07/05/2017 4:55 PM EST) P athologist Signature ProBNP 1,598 (H) <=125 [facility] pg/mL [facility] LABORATORY Specimen Anatomical Collection Method Collection Time Receive d Time (Source) Location / / Volume Laterality Blood specimen 07/05/2017 4:55 PM 017 5:24 (specimen) EST PM EST Resulting Agency Comment Spec In Lab Daphne Shahid MD CHEMISTRY ORDERABLES Performing Organization Address City/[facility]/ZIP Code Phon e Number [address] Magnesium (07/05/2017 4:55 PM EST) athologist Signature Magnesium 0.78 0.69 - 1.07 [facility]L [facility] LABORATORY Specimen Anatomical Collection Method Collection Time Receive d Time (Source) Location / / Volume Laterality Blood specimen 07/05/2017 4:55 PM 017 5:24 (specimen) EST PM EST Resulting Agency Comment Spec In Lab Daphne Shahid MD CHEMISTRY ORDERABLES Performing Organization Address City/State/ZIP [place] [address] (ABNORMAL) Basic Metabolic Panel (non-fasting) (07/05/2017 4:55 PM EST) athologist Signature Glucose Lvl 230 (H) 65 - 199 [facility] mg/dL [facility] LABORATORY Comment: Diabetes: >=200 mg/dL plus symp toms BUN 19 10 - 20 mg/dL [facility] LABORATORY Creatinine 1.04 0.80 - 1.50 mg/dL [facility] LABORATORY Sodium 142 135 - 145 mmol/L [facility] LABORATORY Potassium 4.0 3.5 - 5.0 mmol/L [facility] [...] Anion Gap 14 5 - 15 mmol/L [facility] LABORATORY Calcium 8.5 8.5 - 10.5 mg/dL [facility] LABORATORY Estimated GFR >60 >=60 [facility] LABORATORY Comment: The reported eGFR should be multiplied b y 1.2 for patients. The MDRD is not an appropriate measure o f renal function for patients with body mass extremes or in patients with acute kidney failure. http://X-IO/DHnkdep http://X-IO/DHMCnkf Specimen Anatomical Collection Method Collection Time Receive d Time (Source) Location / / Volume Laterality Blood specimen 07/05/2017 4:55 PM 017 5:24 (specimen) EST PM EST Resulting Agency Comment Spec In Lab Daphne Shahid MD CHEMISTRY ORDERABLES Performing Organization Address City/[facility]/[place] [address] (ABNORMAL) APTT (07/05/2017 4:55 PM EST) P athologist Signature PTT 41 (H) 25 - 35 sec [facility] Comment: The recommended therapeutic range for fu ll dose, unfractionated heparin at [facility] is 80 ? [...] Shahid MD HEMATOLOGY ORDERABLES Performing Organization Address City/[facility]/[place] [address] (ABNORMAL) POCT Glucose (07/05/2017 4:53 PM EST) P athologist Signature POC Glucose 208 (H) 65 - 199 [facility] mg/dL [facility] Comment: Supplemental ranges: <140 mg/dL before meals <180 mg/dL all other times of the day Specimen Anatomical Collection Method Collection Time Receive d Time (Source) Location / / Volume Laterality Blood specimen 07/05/2017 4:53 PM 017 4:53 (specimen) EST PM EST Daphne Shahid MD POINT OF CARE TEST ORDERABLE S Performing Organization Address City/[facility]/[place] [address] EKG 12 Lead (07/05/2017 4:32 PM EST) Component Value Ref Range Test Analysis Performed Pathologis t Method Time At Signature Ventricular rate 97 BPM MUSE SYSTEM Atrial Rate 97 BPM MUSE SYSTEM P-R Interval 148 ms MUSE SYSTEM QRS Duration 96 ms MUSE SYSTEM Q-T Interval 364 ms MUSE SYSTEM QTC Calculated 462 ms MUSE SYSTEM (Bezet) Calculated P Clover 48 degrees MUSE SYSTEM Calculated R Clover -33 degrees MUSE SYSTEM Calculated T Clover 98 degrees MUSE SYSTEM INTERPRETATION Normal sinus [...] Coronary atherosclerosis of unspecified type of vessel, [place] or graft Cardiomyopathy, ischemic Other specified forms [...] post-op day 1 in the AM Give TN if unable to take PO, Routine Given [...] in dextrose 5% 250 mL EST infusion (CHILD DEVELOPMENT PROFESSOR) CONTINUOUS PRN, Starting on Wed07/05/17 at 1837, [...] post-op day 1 in the AM Give TN if unable to take PO, Routine atorvastatin [...] 2.5 mg (COMPLETED) 173 (Given - Provider: mE Jones RN) 2.5 mg, Oral, ONCE, 1 [...] post-op day 1 in the AM Give TN if unable to take PO
Routine Group [...]
Routine documented in this encounter Care Teams Planishing Press Operator Relationship Specialty Start Date End Date Lovely Vicente MD PCP - General 04/16/[address] [place] [address] documented as of this encounter
--- OUTSIDE RECORDS SUMMARY | 2022-02-20 08:18 | XMS_ITS | Encounter Summary ---
:1945 [place] [address] Care Team Providers Name Role Phone Lovely Vicente MD Primary Care Provider Reason for Visit Reason Onset Date Comments Other 12/09/2016 RESULTS Encounter Details Date Type Department Care Team Description 12/09/2016 Telephone Dermatology at Pending sale to [facility] Halima Cadet MD Other (RESULTS) [address] [facility] [place] [address] [facility] [phone] [place], [place] [address] (Wo rk) Social History Tobacco [...] EDT Spoke with patient's , Kisha (personal insurance healthcare representative). I advised her Don's pathology results [...] back. She can be reached back at [phone] documented in this encounter Plan of Treatment Upcoming Encounters Date Type Specialty Care Team Description 03/26/2022 Office Visit Cardiology Vitaliy Nobles MD [facility] ER CARDIOLOGY [place], [place] [address] (Wo rk) documented as of this encounter Visit Diagnoses Not on filedocumented in this encounter Care Teams Intensivist Relationship Specialty Start Date End Date Lovely Vicente MD PCP - General 04/16/[address] [place] [address] documented as of this encounter
--- OUTSIDE RECORDS SUMMARY | 2022-02-20 08:19 | XMS_ITS | Encounter Summary ---
:1945 [place] [address] Care Team Providers Name Role Phone Holley Hollidayica STACIE Primary Care Provider Encounter Details Date Type Department Care Team Description 03/28/2013 - [facility] Barbara Gomes MD Dx) [facility] [address] [address] [phone] Social History Tobacco Use Types Packs/Day Years [...] please call the General Surgery nurse at [phone], since this may mean that you need morecalcium. Follow-up Appointment: Will be scheduled with Dr. Mcknight in 6 weeks Date and time as well as any required labs will be mailed to you Please call [phone] to confirm date and time of your [...] by calcium supplementation. Phone number for questions: [phone] before 5 PM weekdays [phone] after 5 PM and on weekends/holidays Please follow up with Urology as per their recommendations for Bob removal AttachmentsThe following attachments cannot be sent through Care Everywhere. THYROIDECTOMY: WHAT TO EXPECT AT HOME (TONGAN)URINARY CATHETER CARE: AFTER YOUR VISIT (TONGAN)documented in this encounter Medications at Time of [...] cloudy gabi urine. JANUARY serosang. Dressing c/d/i Greogry Fatima is POD 0 Post-op cardiovascular and [...] Mcknight MD - 03/27/2013 5:23 PM EDT rGegory Fatima is a 68 y.o. male presents to [facility] today for total thyroidectomy. See full Consult [...] MD - 03/28/2013 3:43 PM EDT [facility] Operative Note Patient Name: Gregory Fatima : [id number] MR#: [id number] Case Date: 03/28/2013 Surgeon: Surgeon(s) and Role: [...] was extubated and taken to the [facility] in stable condition. At the end ofthe [...] Operative Note Patient Name: Gregory Fatima : [id number] MR#: [id number] Case Date: 03/28/2013 Surgeon: Surgeon(s) and Role: [...] Nobles MD [facility] CARDIOLOGY [place], [place] [address] (Wo rk) documented [...] CARE TEST ORDERABLE S Performing Organization Address City/[facility]/[place] [address] CERNER MILLENNIUM (ABNORMAL) POCT [...] CARE TEST ORDERABLE S Performing Organization Address City/[facility]/[place] [address] CERNER MILLENNIUM (ABNORMAL) POCT [...] CARE TEST ORDERABLE S Performing Organization Address City/[facility]/ZIP Code Phon e Number [address] CERNER MILLENNIUM (ABNORMAL) POCT [...] CARE TEST ORDERABLE S Performing Organization Address City/[facility]/ZIP Code Phon e Number [address] CERNER MILLENNIUM (ABNORMAL) POCT [...] CARE TEST ORDERABLE S Performing Organization Address City/[facility]/ZIP Code Phon e Number [address] CERNER MILLENNIUM (ABNORMAL) POCT [...] CARE TEST ORDERABLE S Performing Organization Address City/[facility]/[place] [address] CERNER MILLENNIUM (ABNORMAL) POCT [...] CARE TEST ORDERABLE S Performing Organization Address City/[facility]/[place] [address] CERNER MILLENNIUM (ABNORMAL) POCT [...] CARE TEST ORDERABLE S Performing Organization Address City/[facility]/ZIP [facility] [place] [address] CERNER MILLENNIUM Specimen to [...] Address City/State/ZIP [place] [address] [facility] Pathology Addendum Report (03/28/2013 12:03 PM EDT) Component Value Ref Test Analysis Performed At [facility] Range Method Time Signature Addendum [facility] Report ? [facility] ? Provider: ?? MESHA MCKNIGHT Pt. Name: ?? GREGORY FATIMA ? Acc #: ?[id number] ?Pt. MRN: ?[id number] ? Col Date: ?? 03/28/2013 ?/Sex: ?1945,(68 years),Male ? Rec Date: ?? 03/28/2013 ?LOC: ?[facility] ? ADDENDUM REPORT ? ---Addendum Discussion--- ? This addendum documents the information c onveyed during intraoperative ? gross consultation. T he thyroid tissue received for Part A was sectioned, ? and no suspicious nodules were identified octavia rg gross intraoperative ? consultation; therefore, no frozen [...] MD PATHOLOGY/CYTOLOGY ORDERABLE S Performing Organization Address [facility]/State/[place] [address] [facility] Pathology Report (03/28/2013 12:03 PM EDT) Component Value Ref Test Analysis Performed At [facility] Range Method Time Signature Surgical [facility] Pathology ? [facility] Report ? Provider: ?? MESHA MCKNIGHT Pt. Name: ?? GREGORY FATIMA ? Acc #: ?[id number] ?Pt. MRN: ?[id number] ? Col Date: ?? 03/28/2013 ?/Sex: ?1945,(68 [...] of hemorrhage and ? calcifications. ? [facility] ? Provider: ?? MESHA MCKNIGHT Pt. Name: ?? GREGORY FATIMA ? Acc #: ?[id number] ?Pt. MRN: ?[id number] ? Col Date: ?? 03/28/2013 ?/Sex: ?1945,(68 years),Male ? Rec Date: ?? 03/28/2013 ?LOC: ?[facility] ? SURGICAL PATHOLOGY ? SECTIONS/PROCESSING: Sustainable Systems Analyst sections are subm itted. (R6) ? [...] MD PATHOLOGY/CYTOLOGY ORDERABLE S Performing Organization Address City/[facility]/ZIP Code Phon e Number [place] [address] [facility] Frozen Section Report (03/28/2013 12:03 PM EDT) Component Value Ref Test Analysis Performed At [facility] Range Method Time Signature Frozen CERNER Section ? [facility] Report ? Provider: ?? MESHA MCKNIGHT Pt. Name: ?? GREGORY FATIMA ? Acc #: ?[id number] ?Pt. MRN: ?[id number] ? Col Date: ?? 03/28/2013 ?/Sex: ?1945,(68 years),Male ? Rec Date: ?? 03/28/2013 ?LOC: ?[facility] ? FROZEN SECTION REPORT ? ---Frozen Section Report--- ? Part A - Intraoperati ve gross consultation was performed. ??The case was ? discussed by phone with Dr. Mcknight, and no frozen ? section was performed. ? 03/31/13 ??Verified by: ??César STRANGE, Ruben Yusuf, [facility] gist ? The attending [facility] gist whose electronic signature appears on this [...] MD PATHOLOGY/CYTOLOGY ORDERABLE S Performing Organization Address City/[facility]/ZIP Code Phon [place] [address] CERNER [employer]act[employer]UM POCT Glucose (03/28/2013 12:00 PM EDT) P athologist Signature POC Glucose 134 60 - 199 [facility] mg/dL [facility] Comment: Supplemental ranges: <110 mg/dL before meals <200 mg/dL all other times of the day Specimen Anatomical Collection Method Collection Time Receive d Time (Source) Location / / Volume Laterality Blood specimen 03/28/2013 12:00 3 (specimen) PM EDT 12:00 PM EDT Mesha Mcknight MD POINT OF CARE TEST ORDERABLE S Performing Organization Address City/State/[place] [address] [facility] Specimen to Pathology (surgical or derm) (03/28/2013 11:58 AM EDT) Specimen Anatomical Collection Method Collection Time Receive d Time (Source) Location / / Volume Laterality AP Specimen 03/28/2013 11:58 03/28/2013 AM EDT 11:58 AM EDT Narrative [facility] - 03/28/2013 11:58 AM EDT Specimen requisition ordered. ??Separate Pathology report to follow Mesha Mcknight MD PATHOLOGY/CYTOLOGY ORDERABLE S Performing Organization Address City/[facility]/[place] [address] [facility] Antibody screen (03/28/2013 9:37 AM EDT) Analysis Performed At Path logist Time Signature Ab Screen Negative [facility] Expires at [id number] [facility] 2358 on: [facility] Specimen Anatomical Collection Method Collection Time Receive d Time (Source) Location / / Volume Laterality Blood specimen 03/28/2013 9:37 AM 013 9:37 (specimen) EDT AM EDT Resulting Agency Comment Spec In Lab Mesha Mcknight MD BLOOD BANK ORDERABLES Performing Organization Address City/[facility]/ZIP Code Phon e Number [address] [facility] A[facility]/Rh Typing (03/28/2013 9:37 AM EDT) athologist Signature ABORh Type O Pos CERNER MILLENNIUM Specimen Anatomical Collection Method Collection Time Receive d Time (Source) Location / / Volume Laterality Blood specimen 03/28/2013 9:37 AM 013 9:37 (specimen) EDT AM EDT Resulting Agency Comment Spec In Lab Mesha Mcknight MD BLOOD BANK ORDERABLES Performing Organization Address City/State/[place] [address] CERNER MILLENNIUM Differential, Automated [...] Performing Organization Address City/State/[place] [address] CERNER MILLENNIUM (ABNORMAL) Basic [...] supplied above were not validated at [facility]. Results from pediatri c patients [...] Mcknight MD CHEMISTRY ORDERABLES Performing Organization Address City/[facility]/ZIP Code Phon e Number [address] CERNER MILLENNIUM (ABNORMAL) CBC [...] Mcknight MD HEMATOLOGY ORDERABLES Performing Organization Address City/[facility]/ZIP Code Phon e Number [address] CERNER MILLENNIUM POCT Glucose (03/28/2013 9:17 AM EDT) athologist Signature POC Glucose 108 60 - 199 CERNER mg/dL [facility] Comment: Supplemental ranges: <110 mg/dL before meals <200 mg/dL all other times of the day Specimen Anatomical Collection Method Collection Time Receive d Time (Source) Location / / Volume Laterality Blood specimen 03/28/2013 9:17 AM 013 9:17 (specimen) EDT AM EDT Mesha Mcknight MD POINT OF CARE TEST ORDERABLE S Performing Organization Address City/State/[place] [address] [facility] Specimen to Pathology (surgical or derm) (03/28/2013 [...] Organization Address City/State/[place] [address] [facility] WALKER documented in [...] RN) 0900 (Given - Provider: Radha Yao [facility], [facility]) 2.5 mg, Oral, DAILY, First dose [...] RN) 0053 (New Bag - Provider: Waldo gracia RN) 100 mL/hr, at 100 mL/hr, Intravenous, [...] override documented in this encounter Care Teams Combat Engineer Relationship Specialty Start Date End Date Angela Holliday APRN PCP - General 01/25/13 04/15/[address] [place] [address] documented as of this encounter
--- OUTSIDE RECORDS SUMMARY | 2022-02-20 08:19 | XMS_ITS | Encounter Summary ---
:1945 Author Organization [facility] [place] [address] Care Team Providers Name Role Phone MiyaAngela STACIE Primary Care Provider Reason for Visit Reason Onset Date Comments Advice Only 03/31/2013 Encounter Details Date Type Department Care Team Description 03/31/2013 Telephone Urology at [facility] Daniele Trejo III, MD Advice Only [facility] [place] [address] [place] [id number] [phone] (Wo rk) Social History Tobacco Use Types [...] Visit Cardiology Vitaliy Nobles MD [facility] CARDIOLOGY [place], [place] [address] (Wo rk) documented as of this encounter Visit Diagnoses Not on filedocumented in this encounter Care Teams Aviation Support Equipment Repairer Relationship Specialty Start Date End Date Angela Holliday APRN PCP - General 01/25/13 04/15/[address] [place] [address] documented as of this encounter
--- OUTSIDE RECORDS SUMMARY | 2022-02-20 08:19 | XMS_ITS | Encounter Summary ---
:1945 Author Organization [facility] [place] [address] Care Team Providers Name Role Phone Angela Holliday APRN Primary Care Provider Encounter Details Date Type Department Care Team Description 03/28/2013 Surgery Main Operating Room Mesha Mcknight, THYROIDECTOMY, [facility] 15.[facility] DR Siddiqui [place] [address] [place] [address] [phone] (Wo rk) Social History Tobacco Use Types [...] please call the General Surgery nurse at [phone], since this may mean that you need morecalcium. Follow-up Appointment: Will be scheduled with Dr. cMknight in 6 weeks Date and time as well as any required labs will be mailed to you Please call [phone] to confirm date and time of your [...] by calcium supplementation. Phone number for questions: [phone] before 5 PM weekdays [phone] after 5 PM and on weekends/holidays Please follow up with Urology as per their recommendations for Bob removal AttachmentsThe following attachments cannot be sent through Care Everywhere. THYROIDECTOMY: WHAT TO EXPECT AT HOME (MAORI)URINARY CATHETER CARE: AFTER YOUR VISIT (MAORI)documented in this encounter Medications at Time of [...] is a 68 y.o. male presents to [facility] today for total thyroidectomy. See full Consult [...] Willams MD - 03/28/2013 3:43 PM EDT [place] Operative Note Patient Name: Gregory Fatima : [id number] MR#: [id number] Case Date: 03/28/2013 Surgeon: Surgeon(s) and Role: [...] patient was extubated and taken to the [facility] in stable condition. At the end ofthe [...] Operative Note Patient Name: Gregory Fatima : [id number] MR#: [id number] Case Date: 03/28/2013 Surgeon: Surgeon(s) and Role: [...] Vitaliy Nobles MD [facility] CARDIOLOGY [place], [place] [address] (Wo rk) documented as of [...] City/[facility]/[place]IP [place] [address] CERNER MILLENNIUM (ABNORMAL) POCT [...] City/[facility]/[place] [address] CERNER MILLENNIUM (ABNORMAL) POCT [...] City/[facility]/ZIP Code Phon e Number [address] CERNER MILLENNIUM (ABNORMAL) POCT [...] City/[facility]/ZIP Code Phon e Number [address] CERNER MILLENNIUM (ABNORMAL) POCT [...] City/[facility]/ZIP Code Phon e Number [address] CERNER MILLENNIUM (ABNORMAL) POCT [...] City/[facility]/[place] [address] CERNER MILLENNIUM (ABNORMAL) POCT [...] City/[facility]/[place] [address] CERNER MILLENNIUM (ABNORMAL) POCT [...] S Performing Organization Address City/[facility]/ZIP [facility] [place] [address] CERNER MILLENNIUM Specimen to [...] Address City/State/ZIP Code [place] [address] RAKESH [facility] Pathology Addendum Report (03/28/2013 12:03 PM EDT) Component Value Ref Test Analysis Performed At [facility] Range Method Time Signature Addendum [facility] Report ? [facility] ? Provider: ?? MESHA MCKNIGHT Pt. Name: ?? GREGORY FATIMA ? Acc #: ?[id number] ?Pt. MRN: ?[id number] ? Col Date: ?? 03/28/2013 ?/Sex: ?1945,(68 [...] ORDERABLE S Performing Organization Address [facility]/State/ZIP [place] [address] CERNER MILLBANNER MD [facility] Surgical Pathology Report (03/28/2013 12:03 PM EDT) Component Value Ref Test Analysis Performed At [facility] Range Method Time Signature Surgical [facility] Pathology ? [facility] Report ? Provider: ?? MESHA MCKNIGHT Pt. Name: ?? GREGORY FATIMA ? Acc #: ?[id number] ?Pt. MRN: ?[id number] ? Col Date: ?? 03/28/2013 ?/Sex: ?1945,(68 [...] areas of hemorrhage and ? calcifications. ? [facility] ? Provider: ?? MESHA MCKNIGHT Pt. Name: ?? GREGORY FATIMA ? Acc #: ?[id number] ?Pt. MRN: ?[id number] ? Col Date: ?? 03/28/2013 ?/Sex: ?1945,(68 years),Male ? Rec Date: ?? 03/28/2013 ?LOC: ?[facility] ? SURGICAL PATHOLOGY ? SECTIONS/PROCESSING: Cellular Equipment Installer sections are subm itted. (R6) ? B [...] MD PATHOLOGY/CYTOLOGY ORDERABLE S Performing Organization Address City/[facility]/ZIP Code Phon e Number [place] [address] [facility] Frozen Section Report (03/28/2013 12:03 PM EDT) Component Value Ref Test Analysis Performed At [facility] Range Method Time Signature Frozen CERNER Section ? [facility] Report ? Provider: ?? MESHA MCKNIGHT Pt. Name: ?? GREGORY FATIMA ? Acc #: ?[id number] ?Pt. MRN: ?[id number] ? Col Date: ?? 03/28/2013 ?/Sex: ?1945,(68 years),Male ? Rec Date: ?? 03/28/2013 ?LOC: ?[facility] ? FROZEN SECTION REPORT ? ---Frozen Section Report--- ? Part A - Intraoperati ve gross consultation was performed. ??The case was ? discussed by phone with Dr. Mcknight, and no frozen ? section was performed. ? 03/31/13 ??Verified by: ??César STRANGE, Ruben Yusuf, [facility] gist ? The attending [facility] gist whose electronic signature appears on [...] MD PATHOLOGY/CYTOLOGY ORDERABLE S Performing Organization Address City/[facility]/ZIP [place] [address] CERNER [employer]UM POCT Glucose (03/28/2013 12:00 PM EDT) P athologist Signature POC Glucose 134 60 - 199 [facility] mg/dL [facility] Comment: Supplemental ranges: <110 mg/dL before meals <200 mg/dL all other times of the day Specimen Anatomical Collection Method Collection Time Receive d Time (Source) Location / / Volume Laterality Blood specimen 03/28/2013 12:00 3 (specimen) PM EDT 12:00 PM EDT Mesha Mcknight MD POINT OF CARE TEST ORDERABLE S Performing Organization Address City/State/[place] [address] [facility] Specimen to Pathology (surgical or derm) (03/28/2013 11:58 AM EDT) Specimen Anatomical Collection Method Collection Time Receive d Time (Source) Location / / Volume Laterality AP Specimen 03/28/2013 11:58 03/28/2013 AM EDT 11:58 AM EDT Narrative [facility] - 03/28/2013 11:58 AM EDT Specimen requisition ordered. ??Separate Pathology report to follow Mesha Mcknight MD PATHOLOGY/CYTOLOGY ORDERABLE S Performing Organization Address City/[facility]/ZIP [place] [address] [facility] Antibody screen (03/28/2013 9:37 AM EDT) Analysis Performed At Path logist Time Signature Ab Screen Negative [facility] Expires at [id number] [facility] 2358 on: [facility] Specimen Anatomical Collection Method Collection Time Receive d Time (Source) Location / / Volume Laterality Blood specimen 03/28/2013 9:37 AM 013 9:37 (specimen) EDT AM EDT Resulting Agency Comment Spec In Lab Mesha Mcknight MD BLOOD BANK ORDERABLES Performing Organization Address City/[facility]/ZIP Code Phon e Number [address] [facility] ABO/Rh Typing (03/28/2013 9:37 AM EDT) athologist Signature ABORh Type O Pos CERNER MILLENNIUM Specimen Anatomical Collection Method Collection Time Receive d Time (Source) Location / / Volume Laterality Blood specimen 03/28/2013 9:37 AM 013 9:37 (specimen) EDT AM EDT Resulting Agency Comment Spec In Lab Mesha Mcknight MD BLOOD BANK ORDERABLES Performing Organization Address City/State/[place] [address] CERNER MILLENNIUM Differential, Automated [...] Performing Organization Address City/State/ZIP [place] [address] CERNER MILLENNIUM (ABNORMAL) Basic [...] intervals supplied above were not validated at [facility]. Results from pediatri c patients should be [...] Mcknight MD CHEMISTRY ORDERABLES Performing Organization Address City/[facility]/ZIP Code Phon e Number [address] CERNER MILLENNIUM (ABNORMAL) CBC [...] Mcknight MD HEMATOLOGY ORDERABLES Performing Organization Address City/[facility]/ZIP Code Phon e Number [address] CERNER MILLENNIUM POCT Glucose (03/28/2013 9:17 AM EDT) athologist Signature POC Glucose 108 60 - 199 CERNER mg/dL [facility] Comment: Supplemental ranges: <110 mg/dL before meals <200 mg/dL all other times of the day Specimen Anatomical Collection Method Collection Time Receive d Time (Source) Location / / Volume Laterality Blood specimen 03/28/2013 9:17 AM 013 9:17 (specimen) EDT AM EDT Mesha Mcknight MD POINT OF CARE TEST ORDERABLE S Performing Organization Address City/State/[place] [address] RAKESH CARVALHOIUM Specimen to [...] Organization Address City/State/[place]IP [place] [address] RAKESH WALKER documented in [...] override documented in this encounter Care Teams Citrus Fruit Packer Relationship Specialty Start Date End Date Angela Holliday APRN PCP - General 01/25/13 04/15/15 [address] [place] [address] documented as of this encounter
--- OUTSIDE RECORDS SUMMARY | 2022-02-20 08:19 | XMS_ITS | Encounter Summary ---
:1945 Author Organization [facility] [place] [address] Care Team Providers Name Role Phone Unknown Primary Care Provider Unavailable Reason for Visit Reason Comments Other Encounter Details Date Type Department Care Team Description 10/05/2012 Telephone Dermatology at [facility] Rigoberto Garcia III, [address] [place] [address] [facility] [phone] TEJA MARIE-DERMAT [place] [id number] (Wo rk) Social History Tobacco Use Types [...] [facility] CARDIOLOGY [place], [place] [address] (Wo rk) documented as of this encounter Visit Diagnoses Not on filedocumented in this encounter Care Teams Roading Engineer Relationship Specialty Start Date End Date Unknown PCP - General 10/04/12 01/24/13 None documented as of this encounter
--- OUTSIDE RECORDS SUMMARY | 2022-02-20 08:19 | XMS_ITS | Encounter Summary ---
:1945 Author Organization [facility] [place] [address] Care Team Providers Name Role Phone MiyaLokeshAngela STACIE Primary Care Provider Reason for Visit Reason Onset Date Comments Post-op Problem 04/05/2013 voiding trial Encounter Details Date Type Department Care Team Description 04/05/2013 Telephone Urology at [facility] Blade Smith, Post-op Problem [facility] (voiding trial) [place] [address] UROLOGY DEPT [place] [phone] (Wo rk) Social History Tobacco Use Types [...] Nobles MD [facility] CARDIOLOGY [place], [place] [address] (Wo rk) documented as of this encounter Visit Diagnoses Not on filedocumented in this encounter Care Teams Marketing Analytics Analyst Relationship Specialty Start Date End Date Angela Holliday APRN PCP - General 01/25/13 04/15/[address] [place] [address] documented as of this encounter
--- OUTSIDE RECORDS SUMMARY | 2022-02-20 08:19 | XMS_ITS | Encounter Summary ---
:1945 Author Organization [facility] [place] [address] Care Team Providers Name Role Phone Angela Holliday APRN Primary Care Provider Encounter Details Date Type Department Care Team Description 01/16/2014 Surgery Gastroenterology at [facility] Nohemi Jaimes, COLONOSCOPY, [facility] Jorge mcnamara MD [place], [place] [address] [facility] ([facility] [phone] DR Cintron) GASTROENTEROLOGY DEPT. [place], [place] [address] Social History Tobacco Use [...] you need to be checked. [facility] [phone] 8a-5p Same Day Endo [phone]-8p Otherwise contact [phone] and ask to speak to the timber hewer balloon artist Follow up care is a [place] part [...] Jaimes MD - 01/16/2014 9:49 AM EDT [facility] Operative Note Patient Name: Gregory Fatima : [id number] MR#: [id number] Case Date: 01/16/2014 Surgeon: Surgeon(s) and Role: * Nohemi Jaimes MD - Primary Preoperative diagnosis: 5 yr surv. Full procedure note is documented under the Procedure section of eDH. documented in this encounter Plan of Treatment Upcoming Encounters Date Type Specialty Care Team Description 03/26/2022 Office Visit Cardiology Vitaliy Nobles MD [facility] CARDIOLOGY [place] [address] (Wo rk) documented as of this encounter [...] Pathology Report (01/16/2014 9:53 AM EDT) [facility] Method Time Signature Surgical CERNER Pathology ? [facility] Report ? Provider: ?? SHREE, NOHEMI Gonzalez ?Pt. Name: ?? SURINDER RT, GREGORY E ? Acc #: ?[id number] ?Pt. MRN: ?[id number] ? Col Date: ?? 4 ? /Sex: [...] MD PATHOLOGY/CYTOLOGY ORDERABLE S Performing Organization Address City/[facility]/ZIP Code Phon e Number [address] CERNER MILLENNIUM Specimen to [...] MD PATHOLOGY/CYTOLOGY ORDERABLE S Performing Organization Address City/[facility] [place] [place] [address] CERNER MILLENNIUM Specimen to [...] MD PATHOLOGY/CYTOLOGY ORDERABLE S Performing Organization Address [facility]/[place] [address] [facility]ESH [facility] COLONOSCOPY (01/16/2014 7:25 AM EDT) [facility] Method Time Signature COLONOSCOPY [facility] PROVATION Endoscopy Patient Name: Gregory Fatima ? Procedure Date: 01/16/2014 7:25 AM ? N: [id number] ? Date of : 1945 ? Age: 68 ? Order #: [id number] ? Procedure: ? Colonoscopy Indications: ? High [...] Laterality 01/16/2014 7:25 AM EDT Angela Holliday OFFICE WORKER GENERAL SURGICAL ORDERABLES Performing Organization Address City/State/ZIP [...] Routine documented in this encounter Care Teams Deicer Repairer Pneumatic Relationship Specialty Start Date End Date Angela Holliday APRN PCP - General 01/25/13 04/15/[address] [place] [address] documented as of this encounter
--- OUTSIDE RECORDS SUMMARY | 2022-02-20 08:19 | XMS_ITS | Encounter Summary ---
:1945 Author Organization [facility] [place] [address] Care Team Providers Name Role Phone Angela Holliday APRN Primary Care Provider Reason for Visit Reason Comments Other Encounter Details Date Type Department Care Team Description 08/01/2013 Telephone Dermatology at [facility] Rigoberto Garcia III, [address] [place] [address] [facility] [phone] TEJA MARIE-DERMAT [place], [place] [address] (Wo rk) Social History [...] them. Component Value Surgical Pathology Final Report [facility] Provider: RIGOBERTO GARCIA III Pt. Name: DON HOANG Acc #: [id number] Pt. 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 CR-0 08/01/13 BJM 08/01/13 Verified by: Ian SRTANGE, PhD, [facility] Dermatopathologist (Electronic Signature) The attending pathologist [...] Vitaliy Nobles MD [facility] CARDIOLOGY [place], [place] [address] (Wo rk) documented as of this encounter Visit Diagnoses Not on filedocumented in this encounter Care Teams Green End Worker Relationship Specialty Start Date End Date Angela Holliday APRN PCP - General 01/25/13 04/15/15 [address] [facility] [place] [address] documented as of this encounter
--- OUTSIDE RECORDS SUMMARY | 2022-02-20 08:19 | XMS_ITS | Encounter Summary ---
:1945 Author Organization [facility] [place] [address] Care Team Providers Name Role Phone Adi Costello MD Primary Care Provider Reason for Visit Reason Comments Annual Exam ckeck his groin and melanoma follow-up Encounter Details Date Type Department Care Team Description 11/21/2010 Follow-Up Dermatology Arik Tipton Melanoma (Primary Dx) [facility] MD Jorge [place] [phone] DERMATOLOGY DEPT . 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 His only complaints are leg cramps, skin [...] changes: Arik Tipton MD Section of Dermatology [facility] documented in this encounter Plan of Treatment Upcoming Encounters Date Type Specialty Care Team Description 03/26/2022 Office Visit Cardiology Vitaliy Nobles MD [facility] CARDIOLOGY [place], [place] [address] (Wo rk) documented as of this encounter Visit Diagnoses Diagnosis Melanoma - Primary Melanoma of skin, site unspecified documented in this encounter Care Teams Game Artist Relationship Specialty Start Date End Date Adi Costello MD PCP - General 06/17/10 09/21/11 [address] [place] [address] documented as of this encounter
--- OUTSIDE RECORDS SUMMARY | 2022-02-20 08:19 | XMS_ITS | Encounter Summary ---
:1945 Author Organization [facility] [place] [address] Care Team Providers Name Role Phone Angela Holliday STAICE Primary Care Provider Encounter Details Date Type Department Care Team Description 04/04/2013 Telephone Urology at [facility] Parker Sanchez MD [facility] [place] [place] [address] UROLOGY DEPT [phone] [place], [place] [address] (Wo rk) Social History Tobacco [...] Vitaliy Nobles MD [facility] [address] [place] [address] (Wo rk) documented as of this encounter Visit Diagnoses Not on filedocumented in this encounter Care Teams Weaving Inspector Relationship Specialty Start Date End Date Angela Holliday APRN PCP - General 01/25/13 04/15/[address] [place] [address] documented as of this encounter
--- OUTSIDE RECORDS SUMMARY | 2022-02-20 08:19 | XMS_ITS | Encounter Summary ---
:1945 Author Organization [place] [address] Care Team Providers Name Role Phone Angela Holliday APRN Primary Care Provider Encounter Details Date Type Department Care Team Description 03/30/2013 Telephone General Surgery at [facility] Cliff Nevarez, [place] [address] Social History Tobacco Use Types Packs/Day [...] Cardiology Vitaliy Nobles MD [facility] ER DR [place], [place] [address] (Wo rk) documented as of this encounter Visit Diagnoses Not on filedocumented in this encounter Care Teams Nurse Anesthetist Relationship Specialty Start Date End Date Angela Holliday APRN PCP - General 01/25/13 04/15/[address] [place] [address] documented as of this encounter
--- OUTSIDE RECORDS SUMMARY | 2022-02-20 08:19 | XMS_ITS | Encounter Summary ---
:1945 Author Organization [facility] [place] [address] Care Team Providers Name Role Phone Angela Holliday APRN Primary Care Provider Reason for Referral Surgical (Routine) - Closed Specialty Diagnoses / Procedures Referred By Contact Refer red To Contact General Surgery Diagnoses Elijah Villagomez MD Colacchio, Thomas A, MD [address] [place] [address] [place] [address] [place] [address] Phone: Fax: Referral ID Status Reason Start Date Expiration Date Visits V isits Requested Authorized [id number] Closed Specialty 01/25/2013 07/24/2013 1 1 Service Requested Reason for Visit Reason Comments Thyroid Problem Encounter Details Date Type Department Care Team Description 01/25/2013 Office Visit Endocrinology at [facility] Elijah Fuentes Goiter (Primary Dx) [facility] [address] [place] [address] [place] [address] [phone] Social History Tobacco Use Types Packs/Day Years [...] History 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 All [...] the thyroid gland were obtained using a SonSoseiaxx and an HFL38/13-6 broadband linear array transducer. [...] Nobles MD [facility] CARDIOLOGY [place], [place] [address] (Wo rk) Scheduled Referrals Name [...] Organization Address City/State/ZIP Code Phon e Number [place] [id number] HOSP[address] LAB[address] [facility] documented in this encounter Visit Diagnoses Diagnosis Goiter - Primary Goiter, unspecified documented in this encounter Care Teams Clamp Truck Driver Relationship Specialty Start Date End Date Angela Holliday APRN PCP - General 01/25/13 04/15/[address] [place] [address] documented as of this encounter
--- OUTSIDE RECORDS SUMMARY | 2022-02-20 08:19 | XMS_ITS | Encounter Summary ---
:1945 Author Organization [place] [address] Care Team Providers Name Role Phone Angela Holliday APRN Primary Care Provider Reason for Visit Reason Comments Benign Prostatic Hypertrophy Encounter Details Date Type Department Care Team Description 11/28/2013 Follow-Up Urology at [facility] Blade Smith, Urinary retention (Primary D x); [facility] BPH (benign prostatic hyperplasia) [place] [address] UROLOGY DEPT [place], [place] [address] (Wo rk) Social History Tobacco [...] MD [facility] ER CARDIOLOGY [place] [address] (Wo rk) documented as of this encounter [...] Organization Address City/State/ZIP Code [place] [address] [facility] documented in this encounter Visit Diagnoses Diagnosis Urinary retention - Primary Retention of urine, unspecified BPH (benign prostatic hyperplasia) Unspecified hyperplasia of prostate with out urinary obstruction and other lower urinary tract symptoms (LUTS) documented in this encounter Care Teams Sample Card Maker Relationship Specialty Start Date End Date Angela Holliday APRN PCP - General 01/25/13 04/15/[address] [place] [address] documented as of this encounter
--- OUTSIDE RECORDS SUMMARY | 2022-02-20 08:19 | XMS_ITS | Encounter Summary ---
:1945 Author Organization [facility] [address] Care Team Providers Name Role Phone Angela Holliday APRN Primary Care Provider Encounter Details Date Type Department Care Team Description 01/25/2013 Clinical [place] [address] Social History Tobacco Use Types Packs/Day [...] MD [facility] ER CARDIOLOGY [place], [place] [address] (Wo rk) documented as of this encounter Visit Diagnoses Not on filedocumented in this encounter Care Teams Fur Cleaner Relationship Specialty Start Date End Date Angela Holliday APRN PCP - General 01/25/13 04/15/[address] [place] [address] documented as of this encounter
--- OUTSIDE RECORDS SUMMARY | 2022-02-20 08:19 | XMS_ITS | Encounter Summary ---
:1945 Author Organization [place] [address] Care Team Providers Name Role Phone Brody Berrios MD Primary Care Provider Reason for Visit Reason Comments Annual Exam Encounter Details Date Type Department Care Team Description 09/22/2011 Follow-Up Dermatology Arik Tipton Psoriasis (Primary Dx); [facility] MD Jorge Personal history of other malignant neop lasm of skin Drive [place] [id number] DERMATOLOGY DEPT . 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 His only complaints tail bone and scalp [...] changes: Arik Tipton MD Section of Dermatology [facility] documented in this encounter Plan of Treatment Upcoming Encounters Date Type Specialty Care Team Description 03/26/2022 Office Visit Cardiology Vitaliy Nobles MD [facility] ER DR CARDIOLOGY [place], [place] [address] (Wo rk) documented as of this encounter Visit Diagnoses Diagnosis Psoriasis - Primary Other psoriasis Personal history of other malignant neop lasm of skin documented in this encounter Care Teams Tenderizer Tender Relationship Specialty Start Date End Date Brody Berrios MD PCP - General 09/22/11 10/03/[address] [place] [address] documented as of this encounter
--- OUTSIDE RECORDS SUMMARY | 2022-02-20 08:19 | XMS_ITS | Encounter Summary ---
:1945 Author Organization [facility] [place] [address] Care Team Providers Name Role Phone Angela Holliday APRN Primary Care Provider Encounter Details Date Type Department Care Team Description 03/15/2013 Telephone General Surgery at [facility] Maddison Key, [place] [address] Social History Tobacco Use Types Packs/Day [...] Vitaliy Nobles MD [facility] ER CARDIOLOGY [place], [place] [address] (Wo rk) documented as of this encounter Visit Diagnoses Not on filedocumented in this encounter Care Teams Ski Edge Painter Relationship Specialty Start Date End Date Angela Holliday APRN PCP - General 01/25/13 04/15/15 [address] [place] [place] [address] documented as of this encounter
--- OUTSIDE RECORDS SUMMARY | 2022-02-20 08:19 | XMS_ITS | Encounter Summary ---
:1945 Author Organization [facility] [place] [address] Care Team Providers Name Role Phone MiyaAngela STACIE Primary Care Provider Reason for Visit Reason Comments Urinary Retention Encounter Details Date Type Department Care Team Description 05/16/2013 [place]Up [place] [facility] Blade Smith, Retention of urine [facility] (Primary Dx) [place] [address] UROLOGY DEPT [place] [id number] (Wo rk) Social History Tobacco Use Types [...] [facility] ER CARDIOLOGY [place], [place] [address] (Wo rk) documented as of this encounter Visit Diagnoses Diagnosis Retention of urine - Primary Retention of urine, unspecified documented in this encounter Care Teams Radiology Receptionist Relationship Specialty Start Date End Date Angela Holliday APRN PCP - General 01/25/13 04/15/[address] [place] [address] documented as of this encounter
--- OUTSIDE RECORDS SUMMARY | 2022-02-20 08:19 | XMS_ITS | Encounter Summary ---
:1945 Author Organization [facility] [place] [address] Care Team Providers Name Role Phone Miya Angela STACIE Primary Care Provider Encounter Details Date Type Department Care Team Description 04/24/2013 Telephone Urology at [facility] Zhen Bowman MD [facility] [place] [address] UROLOGY DEPT [phone] [place], [place] [address] (Wo rk) Social History Tobacco [...] Nobles MD [facility] CARDIOLOGY [place], [place] [address] (Wo rk) documented as of this encounter Visit Diagnoses Not on filedocumented in this encounter Care Teams Information Director Relationship Specialty Start Date End Date Angela Holliday APRN PCP - General 01/25/13 04/15/15 [address] [facility] [place] [address] documented as of this encounter
--- OUTSIDE RECORDS SUMMARY | 2022-02-20 08:19 | XMS_ITS | Encounter Summary ---
:1945 Author Organization [facility] [place] [address] Care Team Providers Name Role Phone NeilSom conner STACIE Primary Care Provider Reason for Visit Reason Comments Establish Care OBST GOITER Encounter Details Date Type Department Care Team Description 01/25/2013 Office Visit General Surgery at Manny Mcknight er colloid, toxic, [facility] MD Eliseo nodular (Primary Dx) [facility] [place], [place] GENERAL SURGERY [id number] [place], [place] [id number] [phone] Social History Tobacco Use Types Packs/Day Years [...] the thyroid gland were obtained using a SonoSiThink2 MicroMaxx and an HFL38/13-6 broadband linear array [...] on physical exam. ROS: No H/O asthma, NM, stroke, pulmonary embolus or phlebitis. Comprehensive review [...] Nobles MD [facility] ER DR CARDIOLOGY [place], [place] [address] (Wo rk) documented as of [...] 406 ms MUSE SYSTEM (Bezet) Calculated P [place] 52 degrees MUSE SYSTEM Calculated R [place] 0 degrees MUSE SYSTEM Calculated T [place] 40 degrees MUSE SYSTEM INTERPRETATION Normal sinus [...] storm documented in this encounter Care Teams Travertine Installer Relationship Specialty Start Date End Date Som Holliday APRN PCP - General 01/25/13 04/15/[address] [place] [address] documented as of this encounter
--- OUTSIDE RECORDS SUMMARY | 2022-02-20 08:19 | XMS_ITS | Encounter Summary ---
:1945 Author Organization [facility] [place] [address] Care Team Providers Name Role Phone MiyaAngela STACIE Primary Care Provider Reason for Visit Reason Comments Post Op voiding trial Encounter Details Date Type Department Care Team Description 04/05/2013 Office Visit Urology at [facility] Darryl Egan, UTI ([facility] MD tract infection) [facility] (Primary Dx) [place] [address] UROLOGY DEPT [phone] [place], [place] [address] Social History Tobacco Use Types [...] MEDICAL [facility] ER CARDIOLOGY [place], [place] [address] (Wo rk) documented as of [...] Value Ref Test Analysis Performed At [facility] Range Method Time Signature Urine Culture CERNER ? Patient Name: ODN HOANG ? Ordered By: DARRYL EGAN [facility] ? MR#: [id number] ?LOC: ??5B ? /Sex: ??1945 (68 years), [...] S ? Patient: DON HOANG ? MR#: [id number] ? FOOTNOTES ? (1) ? This organism [...] Organization Address City/State/[place] [address] [facility] documented in this encounter Visit Diagnoses Diagnosis UTI (lower urinary tract infection) - Pr imary Urinary tract infection, site not specif ied documented in this encounter Care Teams Public Address Announcer Relationship Specialty Start Date End Date Angela Holliday APRN PCP - General 01/25/13 04/15/15 [address] [place] [address] documented as of this encounter
--- OUTSIDE RECORDS SUMMARY | 2022-02-20 08:19 | XMS_ITS | Encounter Summary ---
:1945 Author Organization [facility] [place] [address] Care Team Providers Name Role Phone MiyaLokeshAngela STACIE Primary Care Provider Encounter Details Date Type Department Care Team Description 01/16/2014 Hospital Encounter [facility]ology at [facility] Nohemi Jaimes, [facility] [place] [address] [facility] [phone] [facility] [place], [place] [address] Social History Tobacco Use Types [...] you need to be checked. [facility] [phone] 8a-5p Same Day Endo [phone] 7a-8p Otherwise contact [phone] and ask to speak to the filler mixer airborne operations Follow up care is a shel[place] part [...] Jaimes MD - 01/16/2014 9:49 AM EDT [facility] Operative Note Patient Name: Gregory Fatima : [id number] MR#: [id number] Case Date: 01/16/2014 Surgeon: Surgeon(s) and Role: * Nohemi Jaimes MD - Primary Preoperative diagnosis: 5 yr surv. Full procedure note is documented under the Procedure section of eDH. documented in this encounter Plan of Treatment Upcoming Encounters Date Type Specialty Care Team Description 03/26/2022 Office Visit Cardiology Vitaliy Nobles MD [facility] ER CARDIOLOGY [place] [address] (Wo rk) documented as of this encounter [...] Surgical Pathology Report (01/16/2014 9:53 AM EDT) [facility] Method Time Signature Surgical CERNER Pathology ? [facility] Report ? Provider: ?? SHREE, NOHEMI Gonzalez ?Pt. Name: ?? MALICKEliseo RT, GREGORY E ? Acc #: ?[id number] ?Pt. MRN: ?[id number] ? Col Date: ?? 4 ? /Sex: [...] Volume Laterality 01/16/2014 9:53 AM EDT Nohemi Jaiems MD PATHOLOGY/CYTOLOGY ORDERABLE S Performing Organization Address [facility] Phon e Number [address] CERNER MILLENNIUM Specimen to [...] PATHOLOGY/CYTOLOGY ORDERABLE S Performing Organization Address [facility] Phon e Number [address] CERNER MILLENNIUM Specimen to [...] Address City/State/ZIP Code [place] [address] [facility] (01/16/2014 7:25 AM EDT) [facility] Method Time Signature COLONOSCOPY [facility] Endoscopy Patient Name: Gregory Fatima ? Procedure Date: 01/16/2014 7:25 AM ? N: [id number] ? Date of : 1945 ? Age: 68 ? Order #: [id number] ? Procedure: ? Colonoscopy Indications: ? High risk colon cancer surveillance : ? 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 dm on metformin with bs ~ 110 this ? am,s/p melanoma years ago, os a, ? goiter s/p surgery, p Providers: ? Nohemi Jaimes MD, Blanca xiong, [...] Routine documented in this encounter Care Teams Flotation Operator Relationship Specialty Start Date End Date Angela Holliday APRN PCP - General 01/25/13 04/15/15 [address] [place] [address] documented as of this encounter
--- OUTSIDE RECORDS SUMMARY | 2022-02-20 08:19 | XMS_ITS | Encounter Summary ---
:1945 Author Organization [facility] [place] [address] Care Team Providers Name Role Phone AlfonsoAliciaubaldoAngela STACIE Primary Care Provider Encounter Details Date Type Department Care Team Description 11/27/2013 Orders Only Urology at [facility] Blade Smith, Urinary retention [facility] (Primary Dx) [place] [address] UROLOGY DEPT [place], [place] [address] Social History Tobacco Use Types [...] MD [facility] ER CARDIOLOGY [place], [place] [address] (Wo rk) documented as of this encounter Results (ABNORMAL) PSA (11/28/2013 8:02 AM EDT) [facility] Signature PSA Total 4.07 (H) 0.00 - CERNER (Ultrasensitiv 4.00 ng/mL MILLENNIUM e) Specimen Anatomical Collection Method Collection Time Receive d Time (Source) Location / / Volume Laterality Blood specimen 11/28/2013 8:02 AM 014 8:05 (specimen) EDT AM EDT Resulting Agency Comment Spec In Lab Blade Smith MD CHEMISTRY ORDERABLES Performing Organization Address City/State/ZIP Code Phon e Number [place] [phone] HOSP[address] LAB[address] [facility] documented in this encounter Visit Diagnoses Diagnosis Urinary retention - Primary Retention of urine, unspecified documented in this encounter Care Teams Spark Plug Assembler Relationship Specialty Start Date End Date Angela Holliday APRN PCP - General 01/25/13 [address] [place] [address] documented as of this encounter
--- OUTSIDE RECORDS SUMMARY | 2022-02-20 08:21 | XMS_ITS | Encounter Summary ---
:1945 Author Organization [facility] Address [address] [place] [address] Care Team Providers Name Role Phone Unavailable Primary Care Provider Unavailable Encounter Details Date Type Department Care Team Description 03/05/2014 Hospital Encounter [facility] Unknown, Provider, [facility] 0 [facility] [phone] [place] [address] (Work) [phone] Social History Tobacco Use Types Packs/Day Years Used Date Never Assessed Sex Assigned at Date Recorded Not on file documented as of this encounter Discharge Disposition Disposition Code Departure Means Destination Home or Self Long-Term documented in this encounter Plan of Treatment Not on filedocumented as of this encounter Visit Diagnoses Not on filedocumented in this encounter
--- OUTSIDE RECORDS SUMMARY | 2022-02-20 08:21 | XMS_ITS | Encounter Summary ---
:1945 Author Organization [facility] Address [address] [place] [address] Care Team Providers Name Role Phone Unknown, Provider Primary Care Provider Encounter Details Date Type Department Care Team Description 03/05/2014 Results Only [facility] Eris Taylor MD Laboratory Services - [address] [place] [address] [place] [address] [phone] Social History Tobacco Use Types Packs/Day Years Used Date Never Assessed Sex Assigned at Date Recorded Not on file documented as of this encounter Plan of Treatment Not on filedocumented as of this encounter Procedures Procedure Name Priority Date/Time Associated Diagnosis [facility] SURGICAL PATHOLOGY Routine [...] ? DON HOANG ? Accession #: ? [id number] ? : ? 1945 (Age: 68) ??M [...] Organization Address City/State/ZIP Code Phon e Number [facility] [address] [place] [address] SERVICES [facility] [address] [place] [address] documented in this encounter Visit Diagnoses Not on filedocumented in this encounter Care Teams Engineering Teacher Relationship Specialty Start Date End Date Unknown, Provider, PCP - General 03/07/14 07/12/14 documented as of this encounter
--- OUTSIDE RECORDS SUMMARY | 2022-02-20 08:21 | XMS_ITS | Encounter Summary ---
:1945 Author Organization [facility] Address [address] [place] [address] Care Team Providers Name Role Phone Lovely Vicente MD Primary Care Provider Encounter Details Date Type Department Care Team Description 08/11/2019 Lab Requisition [facility] Unknown, Provider, Pathology & Laboratory [facility] [address] [place] [address] Social History Tobacco Use Types Packs/Day Years [...] (08/11/2019 14:35 EST) Giardia and Cryptosporidium Cryptosporidium [facility] Cryptosporidium Antigen Neg and Antigen Neg and CENTER Giardia Antigen Neg Giardia Antigen Neg LABORATORY SERVICES Specimen Feces - Specimen from rectum (specimen) Performing Organization Address City/State/ZIP Code Phon e Number [facility] [address] [place] [address] SERVICES documented in this encounter Visit Diagnoses Not on filedocumented in this encounter Care Teams Chaser Helper Relationship Specialty Start Date End Date Lovely Vicente MD PCP - General 07/13/14 documented as of this encounter
--- OUTSIDE RECORDS SUMMARY | 2022-02-20 08:21 | XMS_ITS | Encounter Summary ---
:[address] [facility] Address [address] [place] [address] Care Team Providers Name Role Phone Lovely Vicente MD Primary Care Provider Encounter Details Date Type Department Care Team Description 08/11/2019 Lab Requisition [facility] Unknown, Provider, Pathology & Laboratory [facility] [address] [facility] [place] [address] Social History Tobacco Use Types Packs/Day Years [...] Pathologist Sig nature Salmonella PCR Negative Negative [facility] LABORATORY SERVICES Shigella/Enteroinvasive Negative Negative [facility] R E. coli LABORATORY SERVICES HN LAB CAMPYLOBACTER PCR Negative Negative [facility] ER LABORATORY SERVICES Shiga Toxin PCR Negative Negative [facility] LABORATORY SERVICES Specimen Feces - Specimen from rectum (specimen) Performing Organization Address City/State/ZIP Code Phon e Number [facility] [address] [place] [address] SERVICES documented in this encounter Visit Diagnoses Not on filedocumented in this encounter Care Teams Mold Mover Relationship Specialty Start Date End Date Lovely Vicente MD PCP - General 07/13/14 documented as of this encounter
--- OUTSIDE RECORDS SUMMARY | 2022-02-20 08:21 | XMS_ITS | Encounter Summary ---
:1945 Author Organization [facility] Address [address] [place] [address] Care Team Providers Name Role Phone Lovely Vicente MD Primary Care Provider Encounter Details Date Type Department Care Team Description 04/04/2021 Lab Requisition [facility] Outr Resulting Lab, Pathology & Laboratory Provider [facility] [address] [place] [address] Social History Tobacco Use Types Packs/Day Years [...] Pathologist Sig nature Salmonella PCR Negative Negative [facility] LABORATORY SERVICES Shigella/Enteroinvasive Negative Negative [facility] R E. coli LABORATORY SERVICES HN LAB CAMPYLOBACTER PCR Negative Negative [facility] ER LABORATORY SERVICES Shiga Toxin PCR Negative Negative [facility] LABORATORY SERVICES Specimen Feces - Specimen from rectum (specimen) Performing Organization Address City/State/ZIP Code Phon e Number [facility] [address] [place] [address] SERVICES documented in this encounter Visit Diagnoses Not on filedocumented in this encounter Care Teams Alteration Hand Relationship Specialty Start Date End Date Lovely Vicente MD PCP - General 07/13/14 documented as of this encounter
--- OUTSIDE RECORDS SUMMARY | 2022-02-20 08:21 | XMS_ITS | Encounter Summary ---
:1945 Author Organization [facility] Address [address] [place] [address] Care Team Providers Name Role Phone Lovely Vicente MD Primary Care Provider Encounter Details Date Type Department Care Team Description 04/04/2021 Lab Requisition [facility] Outr Resulting Lab, Pathology & Laboratory Provider General acute hospital [address] [place] [address] Social History Tobacco Use Types Packs/Day Years [...] (04/03/2021 12:15 EDT) Giardia and Cryptosporidium Cryptosporidium [facility] Cryptosporidium Antigen Neg and Antigen Neg and CENTER Giardia Antigen Neg Giardia Antigen Neg LABORATORY SERVICES Specimen Feces - Specimen from rectum (specimen) Performing Organization Address City/State/ZIP Code Phon e Number [facility] LABORATORY [address] [place] [address] SERVICES documented in this encounter Visit Diagnoses Not on filedocumented in this encounter Care Teams Wet Pour Mixer Relationship Specialty Start Date End Date Lovely Vicente MD PCP - General 07/13/14 documented as of this encounter
--- OUTSIDE RECORDS SUMMARY | 2022-02-20 08:21 | XMS_ITS | Encounter Summary ---
:1945 Author Organization [facility] Address [address] [place] [address] Care Team Providers Name Role Phone Lovely Vicente MD Primary Care Provider Encounter Details Date Type Department Care Team Description 01/17/2021 Lab Requisition [facility] Outr Resulting Lab, Pathology & Laboratory Provider [facility] [address] [place] [address] Social History Tobacco Use Types Packs/Day Years [...] nature PSA 2.9 0.0 - 6.5 ng/mL [facility] LABORA TORY SERVICES Specimen Blood - Venous blood (substance) Narrative [facility] LABORATORY SERVICES - 01/17/2021 17:46 EDT NOTE: Serum PSA concentration should not be in terpreted as absolute evidence for the presence or absence of malignant disease. Assayed on Siemens ADVIA Centaur XPT usi ng chemiluminescent technology.??Values obtained by using different assay methods cannot be used interchangeably. Performing Organization Address City/State/ZIP Code Phon e Number [facility]OR[facility] [address] [place] [address] SERVICES documented in this encounter Visit Diagnoses Not on filedocumented in this encounter Care Teams Slunk Skinner Relationship Specialty Start Date End Date Lovely Vicente MD PCP - General 07/13/14 documented as of this encounter
--- OUTSIDE RECORDS SUMMARY | 2022-02-20 08:21 | XMS_ITS ---
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 Problem Critical ischemia I99.8 Active of lower extremity Problem Atherosclerosis I70.90 Active 3871 6007 Problem Type 2 diabetes E11.628 Active mellitus with other skin complications Problem History of arterial Z95.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 40 ; Acquired deformi ty of right foot M21.961 ; L luis term current use of i nsulin Z79.4 ; History of art erial bypass of lower extremi ty Z95.828 ; Atherosclerosis I70.90 and History of Lisfr anc amputation of fo ot Z89.439 [facility] Feb, Type 2 diabet es mellitus [address] [place], [place] with diabe tic neuropathy, [address] unspecified E11. 40 ; Acquired deformi ty of right foot M21.961 ; L luis term current use of i nsulin Z79.4 ; History of art erial bypass of lower extremi ty Z95.828 ; Atherosclerosis I70.90 and History of Lisfr anc amputation of fo ot Z89.439 [facility] November, [place] [address] [facility] [facility] November, Type 2 [place] [address] with diabeti c neuropathy, unspecified E11. 40 ; Acquired deformi ty of right foot M21.961 ; L luis term current use of i nsulin Z79.4 ; History of art erial bypass of lower extremi ty Z95.828 ; Atherosclerosis I70.90 and History of Lisfr anc amputation of fo ot Z89.439 [facility] 10 Aug, 2019 Type 2 [place] [address] with other skin complications E1 1.628 ; Tinea pedis of l eft foot B35.3 ; Type 2 d iabetes mellitus with di abetic neuropathy, unsp ecified E11.40 ; Acquire d deformity of right foot M2 1.961 ; penitentiary current use of insulin Z79.4 ; History of arterial bypass of lower extremity Z95.828 and Athe rosclerosis I70.90 [facility] Jun, [place] [address] [facility] Jun, [place] [address] [address] Jun, Type 2 diabet es mellitus [place], [place] with other skin [address] complications E1 1.628 ; Acquired deformi ty of right foot M21.961 ; T ype 2 diabetes mellitu s with diabetic neuropa thy, unspecified E11. 40 ; rodent exterminator current use of insulin Z79.4 and Histor y of arterial bypass of lower extremity Z95.82 8 [facility] Feb, Type 2 [place] [address] with other s kin complications E1 1.628 ; Acquired deformi ty of right foot M21.961 ; T ype 2 diabetes mellitu s with diabetic neuropa thy, unspecified E11. 40 ; penitentiary current use of insulin Z79.4 and Histor y of arterial bypass of lower extremity Z95.82 8 [facility] November, Tinea pedis o f left foot [place], [place] B35.3 ; Ty pe 2 diabetes [address] mellitus with ot her skin complications E1 1.628 ; Acquired deformi ty of right foot M21.961 ; T ype 2 diabetes mellitu s with diabetic neuropa thy, unspecified E11. 40 ; rodent exterminator current use of insulin Z79.4 and Histor y of arterial bypass of lower extremity Z95.82 8 [facility] 8 [facility] November, [place] [address] [address] Aug, Type 2 diabet es mellitus [place] with diabe tic neuropathy, [address] unspecified E11. 40 ; Acquired deformi ty of right foot M21.961 ; P eripheral arterial disease I73.9 ; History of arter ial bypass of lower extremi ty Z95.828 ; penitentiary curren t use of insulin Z79.4 an d History of Lisfranc amputat ion of foot Z89.439 UNKNOWN Jul, [facility] 11 Jun, 2018 Type 2 [place] [address] with diabeti c neuropathy, unspecified E11. [address] [facility] Apr, Edema of both legs R60.0 ; [place], [place] Acquired d eformity of right [address] foot M21.961 ; P eripheral arterial disease I73.9 ; History of arter ial bypass of lower extremi ty Z95.828 ; rodent exterminator curren t use of insulin Z79.4 an d Type 2 diabetes mellitu s with diabetic neuropa thy, unspecified E11. 40 [facility] Mar, [place] [address] [address] Mar, Edema of both legs R60.0 ; [place] Acquired d eformity of right [address] foot M21.961 ; P eripheral arterial disease I73.9 ; History of arter ial bypass of lower extremi ty Z95.828 ; rodent exterminator curren t use of insulin Z79.4 an d Type 2 diabetes mellitu s with diabetic neuropa thy, unspecified E11. 40 [facility] Feb, Edema of both legs R60.0 ; [place] [address] Ulcer of lef t calf, limited to breakdown of skin L97.221 ; Acquired defor mity of right foot M21.9 61 ; Peripheral arter ial disease I73.9 ; History of arterial bypass of lower extremity Z95.828 ; Long t erm current use of insulin Z 79.4 and Type 2 diabetes mellitus with diabetic ne uropathy, unspecified E11. 40 [facility] 1 Feb, [place] [address] [facility] Feb, Edema of both legs R60.0 ; [place] [address] Ulcer of rig ht calf, limited to [...] unspecified E11. 40 [facility] Feb, [place] [address] [facility] [address] [facility] [address] Feb, [place] [address] [facility] [address] [facility] [address] Jan, [place] [address] [facility] [address] [facility] [address] Jan, [place] [address] [facility] [address] [address] Jan, [place] [address] [facility] [address] [facility] Jan, [place] [address] [facility] [address] [facility] [address] [address] Jan, [place] [address] [facility] [address] [facility] Dec, [place] [address] [facility] [address] Dec, [place] [address] [facility] [address] [facility] [address] Dec, [place] [address] [facility] [address] [facility] [address] Dec, [place] [address] [facility] Dec, [place] [address] [facility] [address] [facility] [address] Dec, [place] [address] [facility] November, [place] [address] [facility] November, [place] [address] [facility] November, [place] [address] [facility] November, [place] [address] [facility] November, [place] [address] [facility] November, [place] [address] UNKNOWN November, [facility] [address] November, [place] [address] [facility] November, [place] [address] [facility] Oct, [place] [address] [facility] Oct[place] [address] [facility] Oct, [place] [address] [facility] [address] 18 Oct, 2017 [place] [address] [facility] 16 Oct, 2017 [place] [address] [facility] [facility] [address] [place] 16 Oct[facility] 2017 [facility] [address] [facility] Oct, [place] [address] [facility] Oct, [place] [address] [facility] Oct, [place] [address] [facility] [address] [place] Sep, [facility] [address] [facility] Sep, [place] [address] [facility] [address] Sep, [place] [address] [facility] [address] Sep, [place] [address] [facility] [address] [place] Sep, [place] [address] [facility] [address] Sep, Critical ischemi a of lower [place] [address] extremity I 99.8 ; Local infection of the skin and subcutaneous tis lindsey, unspecified L08. 9 and Type 2 diabetes mellitu s with other skin complicatio ns E11.628 [facility] Sep, [place] [address] [facility] [address] [facility] [address] Sep, [place] [address] [facility] [address] [facility] [address] Sep, [place] [address] [facility] [address] [facility] [address] 14 Sep, [address] [place] [address] [facility] Sep, [place] [address] [facility] Sep, [place] [address] [facility] Sep, [place] [address] [facility] Sep, [place] [address] [facility] [address] [facility] [address] Aug, [place] [address] [facility] [address] [place] Aug, [facility] [address] [facility] [address] [place] Aug, [place] [address] SURGERY 173 [facility] Aug, [place] [address] SURGERY 173 [facility] Aug, [place] [address] [facility] Aug, [place] [address] ORTHOPEDIC OFFICE 173 [facility] Aug, Pre-op exam Z01.818 [place] [address] [facility] Aug, [place] [address] [facility] Aug, [place] [address] [facility] Aug, [place] [address] IMMUNIZATIONS No Known Immunizations SOCIAL HISTORY Qualifiers [...] subcutaneously 22 24h Active units/mL daily Pen Stewart Active Ciclopirox Externally Twice 1 application 12h [...] For Report MR Lower Ext R w/o ([id number]) 2017-09-16 See Below For Report CR C-ARM [...] A1c 03/04/18 - 6.7, [facility] [facility], f/u - bilateral leg edema, Pt [...] at wound center,lab work done 03/07/2018 @ [facility], Patient came in with tubigrip bilateral , wound clin est, wound clinest, Wound CTR-follow up, Wound CTR-follow up, Wound CTR-follow up, Peer to Peer w/ Dr. Espino, Wound CTR-follow up, Wound CTR-follow up, Sql Programmer Analyst Documentation, LAB, Wound CTR-follow up, Wound CTR-follow up, Wound CTR-follow up, Wound CTR-follow up, LAB, LAB, Wound CTR- follow up, Wound CTR-follow up, Wound CTR-follow up, Sql Programmer Analyst Documentation, [facility], Wound CTR-follow up, Wound CTR-follow up, Pull PICC Line, Wound CTR-follow up, Wound CTR-follow up, LAB, Still taking doxycycline 100mg? , Wound CTR-follow up, Wound CTR-follow up, Wound CTR-follow up, Sql Programmer Analyst Documentation, Wound CTR-follow up, Wound CTR-follow up, Call back, Sql Programmer Analyst Documentation, Sql Programmer Analyst Documentation, Sql Programmer Analyst Documentation, Wound CTR-follow up, WCC, Wound CTR-follow up, Wound CTR-follow up, labs, D/C planning, bailey smetatarsal amputation of right foot, LAB, LAB, Wound CTR-NEW Insurance Providers [facility] Member Patient Patient Patient Patient Patient Subscriber Subscriber Subscriber Group Insurance Plan Plan Plan Plan ID Relationship Address Phone Name Date of ID Name Date of No Type Insurance Insurance Insurance Coverage to Subscriber Address Phone Name Dates MEDICARE 3000 [address] MEDICARE self [place] [id number] [facility] [id number] OTHER [address] [place] [phone] OTHER [place] [id number] 1^[place] [facility] PAYOR [id number] S-BLUE [phone] S-BLUE [place] [id number] [place] [address] [place] [address] SELF PAY self [place] [id number] AFTER BLUE [place] AFTER BLUE [facility] [address] [place]
== END 2022-02-22 23:59 | disposition home or self-care (01) ==
LOC: CR 08:06
PROVIDERS: PCP Family Medicine; Visit Provider Internal Medicine Cardiovascular Disease
DX: Z51.89 Encounter for other specified aftercare (principal); I50.9 Heart failure, unspecified; I25.2 Old myocardial infarction; Z95.5 Presence of coronary angioplasty implant and graft
CPT/HCPCS: S9472

== ENCOUNTER 2022-03-05 01:31 | Outpatient (CLI) | payer MEDICARE, BC, SELFPAY ==
[2022-03-05 07:35] LABS: Anion Gap 7.2 mmol/L (3-11); BUN 29 mg/dL (7-18); CO2 27.8 mmol/L (21.0-32.0); CREATININE 1.4 mg/dL (0.70-1.30); Calcium 8.8 mg/dL (8.5-10.1); Chloride 105 mmol/L (98-107); Estimated GFR 49.41 (mL/min/1.73m2); Glucose 132 mg/dL (74-106); Potassium 4.4 mmol/L (3.5-5.1); Sodium 140 mmol/L (136-145)
== END 2022-03-05 01:32 | disposition home or self-care (01) ==
LOC: LBO 01:31
PROVIDERS: PCP Family Medicine; Visit Provider Physician Assistant
DX: I50.22 Chronic systolic (congestive) heart failure (principal)
CPT/HCPCS: 36415; 80048

== ENCOUNTER 2022-03-25 08:00 | Outpatient (RCR) | payer MEDICARE, BC, SELFPAY ==
--- OUTSIDE RECORDS SUMMARY | 2022-02-23 08:50 | XMS_ITS | Encounter Summary ---
:1945 [place] [address] Care Team Providers Name Role Phone Lovely Vicente MD Primary Care Provider Encounter Details Date Type Department Care Team Description 12/30/2021 Notes Only Cardiac Rehab [facility] Linnea Deluca, [facility] [place] [address] Social History Tobacco Use Types Packs/Day [...] Vitaliy Nobles MD [facility] [address] [place], [place] [address] (Wo rk) documented as of this encounter Visit Diagnoses Not on filedocumented in this encounter Care Teams Laborer [employer] Relationship Specialty Start Date End Date Lovely Vicente MD PCP - General 04/16/[address] [place] [address] documented as of this encounter
--- OUTSIDE RECORDS SUMMARY | 2022-02-23 08:50 | XMS_ITS | Encounter Summary ---
:1945 Author Organization [facility] Address [facility] [place] [address] Care Team Providers Name Role Phone Lovely Vicente MD Primary Care Provider Reason for Visit Auth/Cert Specialty Diagnoses / Procedures Referred By Contact Refer red To Contact Diagnoses ASCVD (arteriosclerotic cardiovascular disease) [I25.10] Vitaliy Nobles MD [facility] Procedures PRO PERC TRLUML CORONARY STENT W/ANGIO ONE ART/BRANCH CARDIAC CATHETERIZATION STENT PLACEMENT-SINGLE MAJOR CORONARY ARTERY OR BRANCH [facility] [place] [address] Referral ID Status Reason Start Date Expiration Date Visits Requ ested Visits Authorized [id number] 1 1 Encounter Details Date Type Department Care Team Description 01/30/2022 Hospital Encounter Short Stay Unit at Vitaliy Nobles, CVD (arteriosclerotic cardiovascular disease); Barbara Blue MD 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 [place] [phone] Social History Tobacco Use Types Packs/Day Years [...] and Clopidogrel. Please follow up with your latex ribbon machine operator in the next 4-6 weeks. We [...] gauge x 4 times daily. 10/08 Needle spironolactone Take 1 tablet by mouth 90 tablet 3 2 02/19/2022 (Aldactone) 25 mg daily. Tablet apixaban (Eliquis) 5 Take 1 tablet by mouth 60 tablet 3 02/19/2022 mg Tablet 2 times daily. aspirin 81 mg Capsule 1 capsule by Per 14 capsule 0 01/31/20 02/13/2022 PO/OG/NG route daily for 14 days. documented as of this encounter Progress Notes Carlos Alberto Murray RN - 01/30/2022 4:54 PM EDT [facility] Short Stay Unit Discharge Note All [...] recent PCI presenting for staged PCI to [facility]. The pt states he has [...] recent PCI presenting for staged PCI to [facility]. The indications, expected benefits, and [...] SSU team Don has history of prior CT and CABG. I had referred him to cardiac rehab at [facility] last month per HF team. He was waiting until this intervention before starting the program. Reviewed managing angina /use of sl nitroglycerin. Given parameters for home exercise. 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 We discussed short walks several times per day. Will send [facility] his discharge summary from this admission. The patient should be contacted by the Program within 1- 2 weeks from discharge. Brief Op Note - Vitaliy Nobles MD - 01/30/2022 10:19 AM EDT Images from the original note were not included. [facility] [place] [address] [address] CORONARY ANGIOGRAM AND PERCUTANEOUS CORONARY INTERVENTION REPORT Patient: Don Fatima : 1945 MR number: [id number] Date of Service: 01/30/2022 Homebound Teacher: Vitaliy Nobles MD Fellow: KEYON Elizabeth INDICATION: [...] a large 4.0 x 24 mm Synergy UTCKER stent extending from the LCX into the [...] a long 2.0 x 26 mm HARDEEP Riley TUCKER stent and positioned it at the [...] using a 2.0 x 26 mm HARDEEP Riley TUCKER stent. This completes the revascularization ofall [...] Nobles MD [facility] CARDIOLOGY [place], [place] [address] (Wo rk) Scheduled Orders Name [...] P athologist Signature Neutrophils % 71.8 % [facility] Neutr Abs (ANC) 3.96 1.70 - [facility] 6.10 [facility] x10(3)/[facility] LABORATORY Lymphocytes % 16.3 % [facility] Lymphocytes Abs 0.9 0.9 - 3.2 [facility] x10(3)/[facility] LABORATORY Monocytes % 10.0 % [facility] Monocyte Abs 0.6 0.3 - 0.9 [facility] x10(3)/[facility] LABORATORY Eosinophils % 0.5 % [facility] Eosinophils Abs 0.0 0.0 - 0.4 [facility] x10(3)/[facility] LABORATORY Basophils % 0.5 % [facility] Basophils Abs 0.0 0.0 - 0.1 [facility] x10(3)/[facility] LABORATORY Immature Gran % 0.90 % [...] Jr., MD HEMATOLOGY ORDERABLES Performing Organization Address City/State/[facility] [place] [address] (ABNORMAL) Hemogram (01/30/2022 2:12 PM EDT) Analysis Performed At Patho logist Time Signature WBC 5.5 4.0 - 9.5 [facility] x10(3)/[facility] LABORATORY RBC 4.30 (L) 4.58 - [facility] 5.54 [facility] x10(6)/[facility] LABORATORY Hemoglobin 12.7 (L) 13.7 - [facility] 16.5 g/dL [facility] LABORATORY Hematocrit 39.4 (L) 40.5 - [facility] 48.5 % [facility] LABORATORY MCV 91.6 82.9 - [facility] 93.1 [facility] LABORATORY MCH 29.5 27.5 - [facility] 32.1 pg [facility] LABORATORY MCHC 32.2 32.0 - [facility] 35.7 g/dL [facility] LABORATORY Platelets 172 145 - 357 [facility] x10(3)/[facility] LABORATORY RDWSD 54.5 (H) 36.0 - [facility] SU 45.0 [facility] LABORATORY RDWCV 16.4 (H) 11.4 - [facility] 13.8 % [facility] LABORATORY MPV 9.2 7.6 - 12.9 [facility] LABORATORY nRBC % Auto 0.0 % [facility] nRBC Abs Auto 0.000 0.000 - [facility] 0.000 [facility] x10(3)/[facility] LABORATORY Specimen Anatomical Collection Method Collection Time Receive d Time (Source) Location / / Volume Laterality Blood 01/30/2022 2:12 PM 2 2:37 EDT PM EDT Resulting Agency Comment Spec In Lab Eddi Elizabeth Jr., MD HEMATOLOGY ORDERABLES Performing Organization Address City/State/[place] [address] (ABNORMAL) Basic Metabolic Panel (non-fasting) (01/30/2022 2:12 PM EDT) athologist Signature Glucose Lvl 163 65 - 199 [facility] mg/dL [facility]ORATORY Comment: Diabetes: >=200 mg/dL plus symp toms BUN 30 (H) 10 - 20 mg/dL [facility] LABORATORY Creatinine 1.47 0.80 - 1.50 mg/dL [facility] LABORATORY Sodium 140 135 [...] Nobles MD CHEMISTRY ORDERABLES Performing Organization Address City/[facility]/ZIP [place] Phon e Number [address] POCT Glucose (01/30/2022 1:41 PM EDT) athologist Signature POC Glucose 148 65 - 199 [facility] mg/dL [facility] LABORATORY Comment: Supplemental ranges: <140 mg/dL before meals <180 mg/dL all other times of the day Specimen Anatomical Collection Method Collection Time Receive d Time (Source) Location / / Volume Laterality Blood 01/30/2022 1:41 PM 2 1:41 EDT PM EDT Vitaliy Nobles MD POINT OF CARE TEST ORDERABLE S Performing Organization Address City/[facility]/ZIP [place] Phon e Number [address] POCT Glucose (01/30/2022 10:48 AM EDT) athologist Signature POC Glucose 193 65 - 199 [facility] mg/dL [facility] LABORATORY [...] Organization Address City/State/[place] [address] EKG 12 Lead (01/30/2022 10:33 AM EDT) Component Value Ref Range Test Analysis Performed Pathologis t Method Time At Signature Ventricular rate 64 BPM MUSE SYSTEM Atrial Rate 64 BPM MUSE SYSTEM P-R Interval 162 ms MUSE SYSTEM QRS Duration 94 ms MUSE SYSTEM Q-T Interval 422 ms MUSE SYSTEM QTC Calculated 435 ms MUSE SYSTEM (Bezet) Calculated P Raymond 41 degrees MUSE SYSTEM Calculated R Raymond -27 degrees MUSE SYSTEM Calculated T Raymond 104 degrees MUSE SYSTEM INTERPRETATION Normal sinus rhythm MUSE SYSTEM Anterolateral infarct (cited on or before 09-DEC-2021) Abnormal ECG When compared with ECG of 10-DEC-2021 11:17, No significant change was found Confirmed by Gary Perez ([id number]) on 01/30/2022 5:57:5 2 PM Specimen Anatomical [...] 01/30/2022 2:09 PM ED T ?[facility] ? Cardiac Cathete rization/Intervention Report ? Patient Name: Don Fatima. ? Procedure Date: 01/30/2022 ? A #: [id number] ? Primary Physician: Nobles, Vitaliy P ? Case #: [id number] ? File Name: [id number] ? Catheterization Order Number: [id number] ? [facility] ? Final Report [place], [place] ? Patient Name: ? Don E. Stewa rt ? ID#: ?[id number] ? : ?1945 ? Procedure Date: ? January 30, 2022 ? Case #: ? [id number] ? Room: ? 1 ? Case Physician: [...] was Urgent. The indication for ?the clinical genetics laboratory chief visit is stable kn own CAD. Chest [...] guiding catheter an d a 3.[address] ??20 Mhz ?using Manual pullback. ??Imagin [...] A premounted 2.00 x 26 mm Hardeep Riley (TUCKER) ? was deployed wi th a [...] Wedelivered along 2.0 x 26 mm HARDEEP Riley ? TUCKER stent and p ositioned it [...] dose administered prior to arrival in the clinical genetics laboratory chief. ?Recommended anti-platelet/anti- thrombotic regimen: ?Continue aspirin 81 [...] require ?modification of this regimen. C [facility] Interventional Cardiology for ?questions. ?The 1 year [...] using a 2.0 x 26 mm HARDEEP Riley TUCKER stent. ?This completes the revasculariz ation [...] presen t for the entire procedure. ?Dr. Vitaily Nobles M.D. performed th e coronary angiography, left heart ?catheterization, bypass graft stud y, IVUS # coronary, stent ?insertion-coronary and peripheral intravascular ultrasound. ? Vitaliy P Nobles, M.D. ? Electronically Signed by: Vitaliy P Nobles, M .D. ? Report Finalized: 01/30/2022 ??14:02 ? Vitaliy Sandra Nobles MD CARDIAC CATH ORDERABLES Performing Organization Address [facility]/ZIP Code Phon e Number CARDIOMAC SYSTEM (ABNORMAL) POCT Glucose (01/30/2022 9:04 AM EDT) P athologist Signature POC Glucose 212 (H) 65 - 199 [facility] mg/dL [facility] LABORATORY Comment: Supplemental ranges: <140 mg/dL before meals <180 mg/dL all other times of the day Specimen Anatomical Collection Method Collection Time Receive d Time (Source) Location / / Volume Laterality Blood 01/30/2022 9:04 AM 2 9:04 EDT AM EDT Vitaliy Sandra Nobles MD POINT OF CARE TEST ORDERABLE S Performing Organization Address [facility]/[place] [address] (ABNORMAL) POCT Glucose (01/30/2022 8:10 AM EDT) P athologist Signature POC Glucose 224 (H) 65 - 199 [facility] mg/dL [facility]ORY Comment: Supplemental ranges: <140 mg/dL before meals <180 mg/dL all other times of the day Specimen Anatomical Collection Method Collection Time Receive d Time (Source) Location / / Volume Laterality Blood 01/30/2022 8:10 AM 2 8:10 EDT AM EDT Vitaliy Nobles MD POINT OF CARE TEST ORDERABLE S Performing Organization Address [facility]/[place] [address] documented in this encounter Visit Diagnoses Diagnosis ASCVD (arteriosclerotic cardiovascular d isease) Unspecified cardiovascular disease 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 ASHD (arteriosclerotic heart disease) Coronary atherosclerosis of unspecified type of vessel, belkofski or graft ASCVD (arteriosclerotic cardiovascular d isease) Unspecified cardiovascular disease documented in this encounter Admitting Diagnoses Diagnosis CAD (coronary artery disease) Coronary atherosclerosis of unspecified type of vessel, belkofski or graft documented in this encounter Administered [...] Procedure), Routine niCARdipine (Cardene) (100 mcg/mL) dilution (THERAPY ADMINISTRATIVE ASSISTANT) (CANCELED ) 0927 (Given - Provider: Vitaliy [...] (Intra-Procedure) documented in this encounter Care Teams Reset Merchandiser Relationship Specialty Start Date End Date Lovely Vicente MD PCP - General 04/16/[address] [place] [address] documented as of this encounter
--- OUTSIDE RECORDS SUMMARY | 2022-02-23 08:50 | XMS_ITS | Encounter Summary ---
:1945 Author Organization [facility] [place] [address] Care Team Providers Name Role Phone Lovely Vicente MD Primary Care Provider Encounter Details Date Type Department Care Team Description 12/24/2021 Telephone Public Health at [facility] [phone] Social History Tobacco Use Types Packs/Day [...] MD [facility] ER CARDIOLOGY [place], [place] [address] (Wo rk) documented as of this encounter Visit Diagnoses Not on filedocumented in this encounter Care Teams Police Magistrate Relationship Specialty Start Date End Date Lovely Vicente MD PCP - General 04/16/[address] [place] [address] [address] [facility] [address] [place] [address] documented as of this encounter
--- OUTSIDE RECORDS SUMMARY | 2022-02-23 08:50 | XMS_ITS | Encounter Summary ---
:1945 Author Organization [place] [address] Care Team Providers Name Role Phone Lovely Vicente MD Primary Care Provider Encounter Details Date Type Department Care Team Description 12/12/2021 Telephone Cardiology [place] [facility] [place] [phone] Social History Tobacco Use Types Packs/Day [...] - 12/12/2021 11:36 AM EDT RTC to [employer]y regarding pharmacists questions as to whether the [...] Vitaliy Nobles MD [facility] ER [address] [place], [place] [address] (Wo rk) documented as of this encounter Visit Diagnoses Not on filedocumented in this encounter Care Teams Supervisor Gate Services Relationship Specialty Start Date End Date Lovely Vicente MD PCP - General 04/16/[address] [place] [address] documented as of this encounter
--- OUTSIDE RECORDS SUMMARY | 2022-02-23 08:50 | XMS_ITS | Encounter Summary ---
:1945 [place] [address] Care Team Providers Name Role Phone Lovely Vicente MD Primary Care Provider Encounter Details Date Type Department Care Team Description 12/24/2021 Orders Only Conveyor System Dispatcher Zulma Finch, ASCVD (art eriosclerotic [facility] cardiovascular disease) [facility] [place] [address] [place], [place] [phone] (Work) [phone] Social History Tobacco Use Types Packs/Day Years [...] Vitaliy Nobles MD [facility] [address] [place], [place] [address] (Wo rk) documented as of this encounter Visit Diagnoses Diagnosis ASCVD (arteriosclerotic cardiovascular d isease) Unspecified cardiovascular disease documented in this encounter Care Teams Baker Pie Relationship Specialty Start Date End Date Lovely Vicente MD PCP - General 04/16/15 [address] [facility] [address] [place] [address] documented as of this encounter
--- OUTSIDE RECORDS SUMMARY | 2022-02-23 08:50 | XMS_ITS | Encounter Summary ---
:1945 Author Organization [facility] [place] [address] Care Team Providers Name Role Phone Lovely Vicente MD Primary Care Provider Reason for Visit Reason Onset Date Comments Advice Only 01/28/2022 Encounter Details Date Type Department Care Team Description 01/28/2022 Telephone Cardiology at [facility] Chitra Angela, banana [place] [address] Social History Tobacco Use Types Packs/Day [...] Fatima assists patient with medications. Number for laborer tin can scheduling given and she will call them to verify this information Meds reviewed. As per our form from laborer tin can Eliquis hold for 48 hours prior. Pt [...] Visit Cardiology Vitaliy Nobles MD [facility] ER CARDIOLOGY [place], [place] [address] (Wo rk) documented as of this encounter Visit Diagnoses Not on filedocumented in this encounter Care Teams Plant Control Aide Relationship Specialty Start Date End Date Lovely Vicente MD PCP - General 04/16/[address] [place] [address] documented as of this encounter
--- OUTSIDE RECORDS SUMMARY | 2022-02-23 08:50 | XMS_ITS | Encounter Summary ---
:1945 Author Organization [place] [address] Care Team Providers Name Role Phone Lovely Vicente MD Primary Care Provider Reason for Referral Diagnostic Test (Routine) - New Request Specialty Diagnoses / Procedures Referred By Contact Refer red To Contact Cardiology Diagnoses Chronic systolic heart failure Liz Carrera PA [facility] Non-Inv Card Lab Procedures Echocardiogram Transthoracic [facility] [place] [address] [place] [address] Fax: Referral ID Status Reason Start Expiration Visits Visits Date Date Requested Authorized [id number] New Request Specialty 02/19/2022 02/19/2023 1 1 Service Requested Encounter Details Date Type Department Care Team Description 02/19/2022 Office Visit Cardiology at [facility] Liz Carrera, Chronic systolic heart [facility] [place] [address] Cardiology Dept [phone] [place], [place] [address] Social History Tobacco Use Types [...] As per DC Summary - Admitted to [facility] on 12/08/21, transferred from [facility], respiratory distress with hypoxia 86% on RA. [...] mg PO daily in place of Lasix. Jackson is new for him and he will [...] his PCP. He started [facility] rehab in [facility]. Monitored vitals/trends at home: Weight 191-194 [...] Antiplatelet (DAPT) Recommendations above ? TTE from [facility] 12/08/21 ?? 07/28/2019 Echocardiogram: SUMMARY: 1. The [...] regurgitation present. 07/07/2019 - 07/21/2019 Zio Patch Grease Cup Filler The patient had a minimum heart rate [...] 12.5 mg daily 6. Post-op atrial fibrillation [id number] (CHF, HTN, DM, vascular disease, thromboembolism) Eliquis 7. PAD 08/06/2017: Right 1st, 2nd, 3rd toe amputation 08/11/2017: Left??femoral arterial access, RLE??angiogram, Balloon angioplasty of R PT 10/25/2017: right popliteal-pedal bypass at [facility] 8. Hypothyrodism S/p thyroidectomy for goiter Levothyroxine [...] Nobles MD [facility] CARDIOLOGY [place] [address] (Wo rk) Scheduled Orders Name Type Priority Associated Order Schedule Diagnoses Echocardiogram Echocardiography Routine Chronic systolic Expec vlad: Transthoracic heart failure 05/22/2022 (Approximate), Expires: 11/21/2022 documented as of this encounter Results (ABNORMAL) Basic Metabolic Panel (non-fasting) (02/19/2022 8:06 AM EDT) athologist Signature Glucose Lvl 139 65 - 199 [facility] mg/dL [facility] LABORATORY Comment: Diabetes: >=200 mg/dL plus symp toms BUN 31 (H) 10 - 20 mg/dL [facility] LABORATORY Creatinine 1.53 (H) 0.80 [...] 107 mmol/L [facility] CO2 31 22 - 31 mmol/L [facility] Anion Gap 11 5 - 15 mmol/L [facility] LABORATORY Calcium 9.7 8.5 - 10.5 mg/dL [facility] LABORATORY Estimated GFR 47 (L) >=60 mL/min/1.73 m?? [facility] [...] Organization Address City/State/[place] [address] (ABNORMAL) pro-Brain Natriuretic Peptide (02/19/2022 8:06 AM EDT) P athologist Signature ProBNP 984 (H) <=449 pg/mL [facility] Specimen Anatomical Collection Method Collection Time Receive d Time (Source) Location / / Volume Laterality Blood 02/19/2022 8:06 AM 2 8:09 EDT AM EDT Resulting Agency Comment Spec In Lab Zulma Plunkett MD CHEMISTRY ORDERABLES Performing Organization Address City/State/[place] [address] documented in this encounter Visit Diagnoses Diagnosis Chronic systolic heart failure documented in this encounter Care Teams Maintenance Painter Apprentice Relationship Specialty Start Date End Date Lovely Vicente MD PCP - General 04/16/[address] [place] [address] documented as of this encounter
--- OUTSIDE RECORDS SUMMARY | 2022-02-23 08:50 | XMS_ITS | Clinical Summary ---
:1945 Author Organization [facility] [place] [address] Care Team Providers Name Role Phone Lovely [...] Encounters Date Type Specialty Care Team Description 02/20/2022 Specialty Pharmacy Pharmacy Lamberto Smith A uthojuliana Martinez (Entresto 24-26 mg tablets) 02/19/2022 Office Visit Cardiology Virgilio Chronic systoli c heart Liz, PA failure 02/19/2022 Laboratory Lab Chronic systoli c heart Appointment failure 01/30/2022 Surgery Cardiology Vitaliy Nobles, CARDIAC MD CATHETERIZATION 01/30/2022 Laboratory Lab ASCVD Appointment (arteriosclerot ic cardiovascular disease) 01/30/2022 Hospital Encounter Vitaliy Nobles ASCVD (a rteriosclerotic cardiovascular disease); 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; ASHD (arteriosc lerotic heart disease) 01/28/2022 Orders Only Cardiology JEMIMA Gannon PA (arteriosclerot ic cardiovascular disease) 01/28/2022 Telephone Cardiology Chitra Angela Advice Rome Gomes RN 12/30/2021 Notes Only Cardiology eRbeka Deluca RN 12/25/2021 Office Visit Cardiology Ivone Poole systoli c heart Liz, PA failure 12/25/2021 Laboratory Lab Chronic systoli c heart Appointment failure 12/24/2021 Telephone [facility] Dayami Buckner 12/24/2021 Orders Only Cardiology JEMIMA Gannon PA (arteriosclerot ic cardiovascular disease) 12/15/2021 Telephone Cardiology Barbara Mera, VAMSI 12/12/2021 Refill Cardiology Janneth Padilla Medication R [...] Nobles MD [facility] CARD[facility] [place], [place] [address] (Wo rk) Health Maintenance Due Date Last Done Comments Covid-19 Vaccine (#1) 1950 Pneumoccocal Vaccine: 65+ (1 - PCV) 1952 Hepatitis C Screening 1964 Tdap adult 1965 Tetanus vaccine 1965 Zoster vaccine (1 of 2) 1996 AAA Screen 2011 Colonoscopy 01/16/2019 01/16/2014, 01/16/2014 Influenza (Flu) vaccine (1 of - 03/26/2022 03/29/2013, Influenza standard series) Medical Devices Implanted Type Area Director Social Device Shelf Model / Identifier Expiration Serial / Date Lot Cable,Cut,Edg,Blnt,Ss,3tpr ([id number]) - [id number] IMPLANTS Midline: [employer] 04/01/2022 [id number] / Implanted: Qty: 4 on 07/07/2017 by Yuan Retana MD at [facility] [employer] - / [id number] Procedures Procedure Name Priority Date/Time Associated Diagnosis [...] Time Signature WBC 7.2 4.0 - 9.5 [facility] x10(3[facility] LABORATORY RBC 4.41 (L) 4.58 - BARBARA RYAN 5.54 [facility] x10(6)/[facility] LABORATORY Hemoglobin 13.2 (L) 13.7 - BARBARA RYAN 16.5 g/dL [facility] LABORATORY Hematocrit 40.9 40.5 - [facility] RYAN 48.5 % [facility] LABORATORY MCV 92.7 82.9 - [facility] RYAN 93.1 [facility] LABORATORY MCH 29.9 27.5 - MOBEXORYAN 32.1 pg [facility] LABORATORY MCHC 32.3 32.0 - [facility] RYAN 35.7 g/dL [facility] LABORATORY Platelets 191 145 - 357 BARBARA [employer] x10(3)/[facility] LABORATORY RDWSD 53.6 (H) 36.0 - MOBEXORYAN 45.0 [facility] LABORATORY RDWCV 15.6 (H) 11.4 - BARBAR[place] RYAN 13.8 % [facility] LABORATORY MPV 8.7 7.6 - 12.9 [facility] RYAN [facility] LABORATORY nRBC % Auto 0.0 % [facility] LABORATORY nRBC Abs Auto 0.000 0.000 - BARBARA RYAN 0.000 [facility] x10(3)/[facility] LABORATORY Specimen Anatomical Collection Method Collection Time Receive d Time (Source) Location / / Volume Laterality Blood 02/19/2022 8:06 AM 2 8:09 EDT AM EDT Resulting Agency Comment Spec In Lab Liz BROWN HEMATOLOGY ORDERABLES Performing Organization Address City/State/[place] [address] (ABNORMAL) Differential, Automated (02/19/2022 8:06 AM EDT)Only the most recent of9 resultswithin the time period is included. [facility] Method Time Signature Neutrophils % 76.0 % [facility] LABORATORY Neutr Abs (ANC) 5.49 1.70 - [facility] 6.10 [facility] x10(3)/[facility] LABORATORY Lymphocytes % 10.8 % [facility] LABORATORY Lymphocytes Abs 0.8 (L) 0.9 - 3.2 [facility] x10(3)/[facility] LABORATORY Monocytes % 10.2 % [facility] LABORATORY Monocyte Abs 0.7 0.3 - 0.9 [facility] x10(3)/[facility] LABORATORY Eosinophils % 1.2 % [facility] LABORATORY Eosinophils Abs 0.1 0.0 - 0.4 [facility] x10(3)/[facility] LABORATORY Basophils % 0.8 % [facility] LABORATORY Basophils Abs 0.1 0.0 - 0.1 [facility] x10(3)/[facility] LABORATORY Immature Gran % 1.00 % [facility] LABORATORY Comment: Immature granulocytes(IG's)percentage an d absolute count will include metamyelocytes, myelocytes, and promyelo cytes. Blood smears from CBCs yielding IG's will be scanned manually for concor dance. If this scan disagrees with the automated IG or if promyelocytes are not ed, a manual differential will be performed. Melisa Gran Abs 0.07 (H) 0.00 - 0.04 x10(3)/[facility] LABORATORY Specimen Anatomical Collection Method Collection Time Receive d Time (Source) Location / / Volume Laterality Blood 02/19/2022 8:06 AM 2 8:09 EDT AM EDT Resulting Agency Comment Spec In Lab Liz BROWN HEMATOLOGY ORDERABLES Performing Organization Address City/State/ZIP Code Phon e Number [address] (ABNORMAL) pro-Brain Natriuretic Peptide (02/19/2022 8:06 AM EDT)Only the most recent of2 resultswithin the time period is included. P athologist Signature ProBNP 984 (H) <=449 pg/mL [facility] LABORATORY Specimen Anatomical Collection Method Collection Time Receive d Time (Source) Location / / Volume Laterality Blood 02/19/2022 8:06 AM 8:09 EDT AM EDT Resulting Agency Comment Spec In Lab Zulma Plunkett MD CHEMISTRY ORDERABLES Performing Organization Address City/[facility]/ZIP Code Phon e Number [address] (ABNORMAL) Basic Metabolic Panel (non-fasting) (02/19/2022 8:06 AM EDT)Only the most recent of7 resultswithin the time period is included. P athologist Signature Glucose Lvl 139 65 - 199 [facility] mg/dL [facility] LABORATORY Comment: Diabetes: >=200 mg/dL plus symp toms BUN 31 (H) 10 - 20 mg/dL [facility] LABORATORY Creatinine 1.53 (H) 0.80 - 1.50 mg/dL [facility] LABORATORY Sodium 142 135 - 145 mmol/L [facility] LABORATORY Potassium 5.4 (H) 3.5 - 5.0 mmol/L [facility] LABORATORY Comment: Please note: ??Patients with WBC >100,00 0 may have falsely elevated Potassium levels. ??For accurate Potassium quantif ication in these patients send serum separator tube (gold top) for subsequent determinations. ??Contact the Clinical Chemistry Laboratory if there are any qu estions. Chloride 100 98 - 107 mmol/L [facility] LABORATORY CO2 31 22 - 31 mmol/L [facility] LABORATORY Anion Gap 11 5 - 15 mmol/L [facility] LABORATORY Calcium 9.7 8.5 - 10.5 mg/dL [facility] LABORATORY Estimated GFR 47 (L) >=60 mL/min/1.73 m?? [facility] LABORATORY Comment: This patient's estimated GFR [...] Organization Address City/State/ZIP Code Phon e Number [address] POCT Glucose (01/30/2022 1:41 PM EDT)Only the most recent of36 resultswithin the time period is included. P athologist Signature POC Glucose 148 65 - 199 [facility] mg/dL [facility] LABORATORY Comment: Supplemental ranges: <140 mg/dL before meals <180 mg/dL all other times of the day Specimen Anatomical Collection Method Collection Time Receive d Time (Source) Location / / Volume Laterality Blood 01/30/2022 1:41 PM 2 1:41 EDT PM EDT Vitaliy Nobles MD POINT OF CARE TEST ORDERABLE S Performing Organization Address City/[facility]/ZIP Code Phon e Number [address] EKG 12 Lead (01/30/2022 10:33 [...] 435 ms MUSE SYSTEM (Bezet) Calculated P [place] 41 degrees MUSE SYSTEM Calculated R [place] -27 degrees MUSE SYSTEM Calculated T [place] 104 degrees MUSE SYSTEM INTERPRETATION Normal sinus rhythm MUSE SYSTEM Anterolateral infarct (cited on or before 09-DEC-2021) Abnormal ECG When compared with ECG of 10-DEC-2021 11:17, No significant change was found Confirmed by Gary Perez ([id number]) on 01/30/2022 5:57:5 2 PM Specimen Anatomical Collection Method Collection Time Receive d Time (Source) Location / / Volume Laterality 01/30/2022 10:33 01/30/2022 5:57 AM EDT PM EDT Vitaliy P Nobles ECG ORDERABLES Performing Organization Address City/State/ZIP Code Phon e Number MUSE SYSTEM CARDIAC CATHETERIZATION (01/30/2022 10:16 AM EDT)Only the most recent of2 resultswithin the time period is included. Specimen (Source) Anatomical Location Collection Method / Collectio n Time Received Time / Laterality Volume Narrative CARDIOMAC SYSTEM - 01/30/2022 2:09 PM ED T ?[facility] ? Cardiac Cathete rization/Intervention Report ? Patient Name: Don Fatima Tal ? Procedure Date: 01/30/2022 ? A #: [id number] ? Primary Physician: Vitaliy Nobles ? Case #: [id number] ? File Name: [id number] ? Catheterization Order Number: [id number] ? [facility] ? Final Report [place], [place] ? Patient Name: ? Don E. Stewa rt ? ID#: ?[id number] ? : ?1945 ? Procedure Date: ? [...] Urgent. The indication for ?the clinical laboratory manager visit is stable kn own [...] guiding catheter an d a 3.5 Fr [place] [facility] [place] [address] ??20 Mhz ?using Manual pullback. ??Imagin [...] 6 Fr. Ikari Right ? 2.0 guide. ?? e lesion was predilated with a 2.00mm NC EUPHORA ? 15 MM balloon w ith a maximum inflation pressure of 26 ? atmospheres. ?? A premounted 2.00 x 26 mm [place] (TUCKER) ? was deployed wi th a [...] Wedelivered along 2.0 x 26 mm ORION Man[place]e ? TUCKER stent and p ositioned it at the ostium of the RPDA ? extending into the mid RPDA and deployed it at 12 darshan. We then ? usedthe stentba monroeon to post-dilate the stent to 20atm ? [...] administered prior to arrival in the clinical laboratory manager. ?Recommended anti-platelet/anti- thrombotic regimen: ?Continue [...] require ?modification of this regimen. C onsult [facility] Interventional Cardiology for ?questions. [...] using a 2.0 x 26 mm ORION [place] TUCKER stent. ?This completes the revasculariz ation [...] 152 (H) 65 - 99 [facility] Fasting mg/dL [facility] LABORATORY Comment: ?Fasting* Glucose Interpretive [...] of Diabetes Mellitus, Position Statement from the [place] [employer]. ??Diabete s Care, Volume 33, Supplement 1, Jul 2009 BUN 52 (H) 10 - 20 mg/dL [facility] LABORATORY Creatinine 1.72 (H) 0.80 - 1.50 mg/dL [facility] LABORATORY Sodium 143 135 - 145 mmol/L [facility] LABORATORY Potassium 3.9 3.5 - 5.0 mmol/L [facility] [...] LABORATORY Calcium 8.9 8.5 - 10.5 mg/dL [facility] LABORATORY Estimated GFR 38 (L) [...] Organization Address City/State/[place] [address] (ABNORMAL) Prothrombin Time (12/12/2021 4:51 AM EDT)Only the most recent of4 resultswithin the time period is included. P athologist Signature PT 14.9 (H) 9.4 - 12.5 [facility] LABORATORY INR 1.3 [facility] LABORATORY Comment: [...] Cuevas MD HEMATOLOGY ORDERABLES Performing Organization Address City/[facility]/ZIP Code Phon e Number [address] Magnesium (12/12/2021 4:51 AM EDT)Only the most recent of5 resultswithin the time period is included. P athologist Signature Magnesium 1.02 0.69 - 1.07 [facility] mmol/L [facility] LABORATORY Specimen Anatomical Collection Method Collection Time Receive d Time (Source) Location / / Volume Laterality Blood 12/12/2021 4:51 AM 2 5:06 EDT AM EDT Resulting Agency Comment Spec In Lab Iker Cuevas MD CHEMISTRY ORDERABLES Performing Organization Address City/[facility]/ZIP Code Phon e Number [address] COVID-19 PCR (12/11/2021 10:13 AM EDT) [facility] Method Time Signature SARS-CoV-2 Not Detected Not Detected [facility] LABORATORY Comment: [...] diagnosis of COVID-19 is performed using the [employer] [facility] S-CoV-2 Assay as authorized by the FDA Emergency Use Authorization (EUA). This EUA assay is intended for In-vitro Diagnostic (IVD) use with respiratory sp ecimens such as nasopharyngeal swabs collected from individuals during the ac terrence phase of infection. This assay is performed based on the instructions for use provided by [employer] and additional guidance provided by CDC and FDA. Testing is performed in the [facility] Laboratory within the Department of Pathology and Laboratory Medicine at [facility], certified under the Clinical Laboratory Improvement Amendments of 1988 (CLIA), 42 U.S.C. 263a, to perform high complexi ty tests. Assay performance has been verified according to clinical laborator y regulatory requirements for use with specimens collected from individuals amritza pected of COVID-19. Test results are provided [...] fact sheets at the following FDA website: https://www.fda.gov/medical-devices/zbmxztizbxg-gilrjug-8183-tfuxl-52-thiluzzcx- vzq-tuzwuesaaihyke-eslxnqn-devices/vsjcb-nxldnkmjfvh-djpj SARS-Cov-2 RNA Source PAPER PLATE MACHINE TENDER Swab [facility] LABORATORY Specimen (Source) Anatomical Collection Method Collection Time Re ceived Time Location / / Volume Laterality Nasopharyngeal Swab 12/11/2021 10:13 05/03/2022 AM EDT 11:16 AM EDT Comment: Symptoms->Surveillance Resulting Agency Comment Spec In Lab Iker Cuevas MD MICROBIOLOGY - GENERAL ORDER ROBSON Performing Organization Address City/[facility]/ZIP Code Phon e Number [address] Potassium (12/10/2021 7:46 PM EDT) athologist Signature Potassium 4.2 3.5 - 5.0 [facility] mmol/L [facility] LABORATORY Comment: Please note: ??Patients [...] Address City/[facility]/[place] [address] (ABNORMAL) Point of Care Blood Gas Historical (12/10/2021 9:04 AM EDT) Patholo gist Method Time Signature POC pH 7.40 7.35 - [facility] 7.45 [facility] LABORATORY POC PCO2 40 35 - 45 [facility] LABORATORY POC PO2 63 (L) 85 - 104 [facility] LABORATORY POC Base Excess 0.0 -3.0 - 3.0 [facility] K mmol/L [facility] LABORATORY POC HCO3 24.8 20.0 - [facility] 26.0 [facility] mmol/L [facility] LABORATORY POC Sodium 143 135 - 145 [facility] mmol/L [facility] LABORATORY POC Potassium 3.7 3.5 - 5.0 [facility] mmol/L [facility] LABORATORY POC Ionized Ca 1.07 (L) 1.15 - [facility] 1.33 [facility] mmol/L [facility] LABORATORY POC Hematocrit 30.0 (L) 40.0 - [facility] 51.0 % [facility] LABORATORY POC Calc Hgb 10.2 (L) 13.7 - [facility] 17.5 g/dL [facility] LABORATORY Comment: The calculation of hemoglobin f rom hematocrit assumes a normal MCHC. POC Bgas Loc CC LAB [facility] LABORATORY Specimen Anatomical Collection Method Collection Time Receive d Time (Source) Location / / Volume Laterality Blood 12/10/2021 9:04 AM 2 EDT 12:00 PM EDT Ifeanyi Truong MD CHEMISTRY ORDERABLES Performing Organization Address City/State/[place] [address] Heparin (unfractionated) Level (12/10/2021 4:25 AM EDT)Only the most recent of5 resultswithin the time period is included. athologist Signature Heparin UFH 0.69 IU/mL [facility] [...] Cuevas MD HEMATOLOGY ORDERABLES Performing Organization Address City/[facility]/[place] [address] (ABNORMAL) Troponin (12/09/2021 6:18 AM EDT)Only the most recent of3 results within the time period is included. athologist Signature Troponin-T 1.13 (H) 0.00 - BARBARA DAVIS 0.00 ng/mL [facility] LABORATORY Comment: The 99th percentile [...] additional sample may be indicated. Reference: Third [place] Definition of Myocardial Infarction. Journal of the [place] College [employer] 2012;60:1581-98 Specimen Anatomical Collection Method Collection Time Receive d Time (Source) Location / / Volume Laterality Blood 12/09/2021 6:18 AM 2 6:33 EDT AM EDT Resulting Agency Comment Spec In Lab Iker Cuevas MD CHEMISTRY ORDERABLES Performing Organization Address City/[facility]/ZIP Code Phon e Number [place] [phone]OS[address] TSH (12/09/2021 6:18 AM EDT) P athologist Signature TSH 1.60 0.27 - 4.20 [facility] mcIU/mL [facility] LABORATORY Comment: Reference Interval (mcIU/mL): Females: ??First Trimester: 0.23-3.88 ??Second Trimester: 0.22-3.90 ??Third Trimester: 0.44-4.66 Specimen Anatomical Collection Method Collection Time Receive d Time (Source) Location / / Volume Laterality Blood 12/09/2021 6:18 AM 6:33 EDT AM EDT Resulting Agency Comment Spec In Lab Iker Cuevas MD CHEMISTRY ORDERABLES Performing Organization Address City/State/ZIP Code Phon e Number [place] [phone] (ABNORMAL) Hemoglobin A1c (12/09/2021 [...] Mellitus, Diabetes Care 2013; 36: Suppl. 1, S67-78 Est Avg Gluc See note mg/dL [facility] [...] with hemoglobinopathies. Additional resources are available on [facility] ADA website. Macario HAMMOND, Ruthann J, Deysi R, et al. ??Tr anslating the A1C assay into estimated average glucose values. ??Diabetes Care 2008:31(8):6082-8408. Specimen Anatomical Collection Method Collection Time Receive d Time (Source) Location / / Volume Laterality Blood Venous Draw / 12/09/2021 6:18 AM 12/10/19 22 Unknown EDT 12:24 PM EDT Resulting Agency Comment Spec In Lab Migdalia BROWN CHEMISTRY ORDERABLES Performing Organization Address City/State/ZIP Code Phon e Number [place] [phone]OS[address] Hepatic Function Panel (12/09/2021 6:18 AM EDT) P athologist Signature Total Protein 7.3 6.1 - 8.0 BARBARA RYAN g/dL [facility] LABORATORY Albumin 4.2 3.2 - 5.2 BARBAR[facility] RYAN g/dL [facility] LABORATORY AST 25 0 - 39 [place] unit/L [facility] ALT 15 0 - 55 BARBAR[facility] RYAN unit/L [facility] LABORATORY Alk Phos 75 40 - 130 [place] RYAN unit/L [facility] LABORATORY Total 1.1 0.2 - 1.3 [facility] Bilirubin mg/dL [facility] LABORATORY Bili, Direct 0.2 0.0 - 0.3 [place] mg/dL [facility] LABORATORY Specimen Anatomical Collection Method Collection Time Receive d Time (Source) Location / / Volume Laterality Blood 12/09/2021 6:18 AM 6:33 EDT AM EDT Resulting Agency Comment Spec In Lab kIer Cuevas MD CHEMISTRY ORDERABLES Performing Organization Address City/State/[place] [address] Lipid Panel (Reflex Direct LDL) (12/09/2021 6:18 AM EDT) athologist Signature Chol, Total 105 mg/dL [facility] LABORATORY Comment: Lower Risk: <200 mg/dL Average Risk: 200-239 mg/dL Higher Risk: >gn=233 mg/dL Triglycerides 133 mg/dL [facility] LABORATORY Comment: Average Risk/Lower Risk: <150 mg/dL Borderline High Risk: 150-199 mg/dL High Risk: 200-499 mg/dL Very High Risk: >zs=147 mg/dL HDL 42 mg/dL [facility] LABOR[facility] Comment: Males: ?? Higher Risk: <40 mg/dL Females: ?? Higher Risk: <50 mg/dL LDL Cholesterol 36 mg/dL [facility] Comment: Lowest Risk: <100 mg/dL Lower Risk: 100-129 mg/dL Borderline High Risk: 130-159 mg/dL High Risk: 160-189 mg/dL Very High Risk: >zd=343 mg/dL Chol/HDL Ratio 2.5 ratio [facility] Lipid Interpretation See Note [facility] LABORATORY Comment: Lipid management should be guided by a p atient? s ASCVD risk, goals and preferences. ACC/AHA Guidelines recommend high intens ity statin if clinical ASCVD or LDL greater than or equal to 190 mg/dL. http://Paratekurl.[email or web address]/XBR-PPD-Ykgorlrpu Adults aged 40-75 with LDL 70-189 mg/dL should have their 10 year ASCVD risk estimated with the ACC/AHA ASCVD risk es timator http://tools.acc.org/DHQCR-Vsqc-Bzrzpwmw r/ Statin should be discussed if risk [...] Organization Address City/State/[place] [address] XR Chest One View [...] have questions please contact the health care transitions nurse that requested your imaging first. ? [...] have questions please contact the health care transitions nurse that requested your imaging first. Amber Sanches MD IMG DX ORDERABLES (ABNORMAL) BLOOD GAS 2 ARTERIAL (12/09/2021 5:14 AM EDT) Analysis Performed At Patho logist Time Signature pH Art 7.43 7.35 - [facility] 7.45 [facility] LABORATORY pCO2 Art 36 35 - 45 [facility] mmHg [facility] LAB[facility] pO2 Art 67 (L) 85 - 104 [facility] mmHg [facility] LABORATORY HCO3 Art 23.4 20.0 - [facility] 26.0 [facility] mmol/L HOSPITAL LABORATORY BE Art -0.9 -3.0 - 3.0 [facility] mmol/L [facility] LABORATORY Hgb Blood Gas 13.2 (L) 13.7 - [facility] 16.5 g/dL [facility] LABORATORY O2HB Art 91.3 (L) 94.0 - [facility] 97.0 % [facility] LABORATORY COHB Art 0.4 % [facility] [...] Whole Blood 104 98 - 107 mmol/L [facility] Gluc Whole Bld 223 (H) 65 - 199 mg/dL [facility] LABORATORY Comment: Diabetes: >=200 mg/dL plus symp toms. Lactate WB 2.7 (H) 0.5 - 2.2 mmol/L [facility] LABORATORY FIO2 Art 35 % [facility] Flow Art 8.0 LPM [facility] PF Ratio Art 191 [facility] LABORATORY Specimen Anatomical Collection Method Collection Time Receive d Time (Source) Location / / Volume Laterality Blood 12/09/2021 5:14 AM 5:14 EDT AM EDT Iker Cuevas MD CHEMISTRY ORDERABLES Performing Organization Address City/State/[place] [address] COVID-19 PCR (12/08/2021 5:00 PM EDT) [facility] Method Time Signature SARS-CoV-2 Not Detected Not Detected [facility] PCR [facility] LABORATORY [...] using the [employer] COVID-19 Direct Assay by [employer] marcum as authorized by the FDA issued [...] Department of Pathology and Laboratory Medicine at [facility], certified under the Clinical Laboratory [...] fact sheets at the following FDA website: https://www.fda.gov/medical-devices/nyjygxkebci-ebtbsjl-8076-zxiyj-06-wfiynlkcr- wui-prdndlyuczqtfr-jhjmwzu-devices/nuxvx-uagcsxsupqd-pvqc SARS-CoV-2 Source PAPER PLATE MACHINE TENDER Swab [facility] LABORATORY Specimen (Source) Anatomical Collection Method Collection Time Re ceived Time Location / / Volume Laterality Nasopharyngeal Swab 12/08/2021 5:00 12/08 PM EDT 6:03 PM EDT Comment: Symptoms->Surveillance Resulting Agency Comment Spec In Lab Iker Cuevas MD MICROBIOLOGY - GENERAL ORDER [place] Performing Organization Address City/State/[place] [address] Scan Doc: Echo (12/08/2021) [...] IMG FILM LIBRARY ORDERABLES Performing Organization Address City/[facility]/ZIP Code Phon e Number RAD [place], [place] Scan Doc: ECG (12/07/2021) Narrative This result has an attachment that is no t available. 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
--- OUTSIDE RECORDS SUMMARY | 2022-02-23 08:50 | XMS_ITS | Encounter Summary ---
:1945 Author Organization [facility] [place] [address] Care Team Providers Name Role Phone Lovely Vicente MD Primary Care Provider Reason for Visit Auth/Cert Specialty Diagnoses / Procedures Referred By Contact Refer red To Contact Diagnoses ASCVD (arteriosclerotic cardiovascular disease) [I25.10] Vitaliy Nobles MD [facility] Procedures PRO PERC TRLUML CORONARY STENT W/ANGIO ONE ART/BRANCH CARDIAC CATHETERIZATION STENT PLACEMENT-SINGLE MAJOR CORONARY ARTERY OR [facility] [place] [address] Referral ID Status Reason Start Date Expiration Date Visits Requ ested Visits Authorized [id number] 1 1 Encounter Details Date Type Department Care Team Description 01/30/2022 Laboratory Lab 3L Barbara ASCVD (arterios clerotic Appointment [facility] [place] cardiovas cular disease) [place] [address] Social History Tobacco Use Types Packs/Day Years [...] MD [facility] ER CARDIOLOGY [place], [place] 0[address] (Wo rk) documented as [...] (ABNORMAL) Differential, Automated (01/30/2022 7:19 AM EDT) [facility] gist Method Time Signature Neutrophils % 77.9 % [facility] LABORATORY Neutr Abs (ANC) 5.31 1.70 - [facility] 6.10 [facility] x10(3)/[facility] LABORATORY Lymphocytes % 12.0 % [facility] LABORATORY Lymphocytes Abs 0.8 (L) 0.9 - 3.2 [facility] x10(3)/[facility] LABORATORY Monocytes % 8.1 % [facility] LABORATORY Monocyte Abs 0.6 0.3 - 0.9 [facility] x10(3)/[facility] LABORATORY Eosinophils % 0.4 % [facility] LABORATORY Eosinophils Abs 0.0 0.0 - 0.4 [facility] x10(3)/[facility] LABORATORY Basophils % 0.6 % [facility] LABORATORY Basophils Abs 0.0 0.0 - 0.1 [facility] x10(3)/[facility] LABORATORY Immature Gran % 1.00 % [facility] LABORATORY Comment: Immature granulocytes(IG's)percentage an d absolute count will include metamyelocytes, myelocytes, and promyelo cytes. Blood smears from CBCs yielding IG's will be scanned manually for concor danhaley. If this scan disagrees with the automated IG or if promyelocytes are not ed, a manual differential will be performed. Melisa Gran Abs 0.07 (H) 0.00 - 0.04 x10(3)/[facility] LABORATORY Specimen Anatomical Collection Method Collection Time Receive d Time (Source) Location / / Volume Laterality Blood 01/30/2022 7:19 AM 7:21 EDT AM EDT Resulting Agency Comment Spec In Lab Zulma BROWN HEMATOLOGY ORDERABLES Performing Organization Address City/State/[place] [address] (ABNORMAL) Hemogram (01/30/2022 7:19 AM EDT) Analysis Performed At Patho logist Time Signature WBC 6.8 4.0 - 9.5 [facility] x10(3)/[facility] LABORATORY RBC 4.32 (L) 4.58 - [facility] RYAN 5.54 [facility] x10(6)/[facility] LABORATORY Hemoglobin 13.0 (L) 13.7 - [facility] 16.5 g/dL [facility] LABORATORY Hematocrit 39.8 (L) 40.5 - [facility] 48.5 % [facility] LABORATORY MCV 92.1 82.9 - [facility] 93.1 [facility] LABORATORY MCH 30.1 27.5 - [facility] 32.1 pg [facility] LABORATORY MCHC 32.7 32.0 - [facility] 35.7 g/dL [facility] LABORATORY Platelets 172 145 - 357 [facility] x10(3)/[facility] LABORATORY RDWSD 54.5 (H) 36.0 - [facility] RYAN 45.0 [facility] LABORATORY RDWCV 16.2 (H) 11.4 - [facility] R[facility]AN 13.8 % [facility] LABORATORY MPV 9.0 7.6 - 12.9 [facility] LABORATORY nRBC % Auto 0.0 % [facility] LABORATORY nRBC Abs Auto 0.000 0.000 - [facility] RYAN 0.000 [facility] x10(3)/[facility] LABORATORY Specimen Anatomical Collection Method Collection Time Receive d Time (Source) Location / / Volume Laterality Blood 01/30/2022 7:19 AM 7:21 EDT AM EDT Resulting Agency Comment Spec In Lab Zulma BROWN HEMATOLOGY ORDERABLES Performing Organization Address City/State/[place] [address] (ABNORMAL) Basic Metabolic Panel (non-fasting) (01/30/2022 7:19 AM EDT) athologist Signature Glucose Lvl 237 (H) 65 - 199 [facility] mg/dL [facility] LABORATORY Comment: Diabetes: [...] [facility] LABORATORY CO2 30 22 - 31 mmol/L [facility] LABORATORY Anion Gap 11 5 - 15 mmol/L [facility] LABORATORY Calcium 9.5 8.5 - 10.5 mg/dL [facility] LABORATORY Estimated GFR 50 (L) >=60 mL/min/1.73 m?? [facility] Organization Address City/State/[place] [address] documented in this encounter Visit Diagnoses Diagnosis ASCVD (arteriosclerotic cardiovascular d isease) Unspecified cardiovascular disease documented in this encounter Care Teams Shorthand Teacher Relationship Specialty Start Date End Date Lovely Vicente MD PCP - General 04/16/[address] [place] [address] documented as of this encounter
--- OUTSIDE RECORDS SUMMARY | 2022-02-23 08:50 | XMS_ITS | Encounter Summary ---
:1945 Author Organization [facility] [place] [address] Care Team Providers Name Role Phone Lovely Vicente MD Primary Care Provider Encounter Details Date Type Department Care Team Description 12/25/2021 Laboratory Appointment Lab 3L [facility] systolic [facility] [place] [phone] Social History Tobacco Use Types Packs/Day Years [...] Nobles MD [facility] ER CARDIOLOGY [place], [place] 0[address] (Wo rk) documented as [...] (ABNORMAL) Differential, Automated (12/25/2021 7:46 AM EDT) [facility] Method Time Signature Neutrophils % 82.6 % [facility] LABORATORY Neutr Abs (ANC) 9.37 (H) 1.70 - [facility] 6.10 [facility] x10(3)/[facility] LABORATORY Lymphocytes % 7.1 % [facility] LABORATORY Lymphocytes Abs 0.8 (L) 0.9 - 3.2 [facility] x10(3)/[facility] LABORATORY Monocytes % 8.8 % [facility] LABORATORY Monocyte Abs 1.0 (H) 0.3 - 0.9 [facility] x10(3)/[facility] LABORATORY Eosinophils % 0.4 % [facility] LABORATORY Eosinophils Abs 0.0 0.0 - 0.4 [facility] x10(3)/[facility] LABORATORY Basophils % 0.4 % [facility] LABORATORY Basophils Abs 0.0 0.0 - 0.1 [facility] x10(3)/[facility] LABORATORY Immature Gran % 0.70 [...] Gran Abs 0.08 (H) 0.00 - 0.04 x10(3)/[facility] LABORATORY Specimen Anatomical Collection Method Collection Time Receive d Time (Source) Location / / Volume Laterality Blood 12/25/2021 7:46 AM 8:01 EDT AM EDT Resulting Agency Comment Spec In Lab Liz Poole STEPHANIE HEMATOLOGY ORDERABLES Performing Organization Address City/State/[place] [address] (ABNORMAL) Hemogram (12/25/2021 7:46 AM EDT) Analysis Performed At Patho logist Time Signature WBC 11.4 (H) 4.0 - 9.5 [facility] x[facility](3[facility] LABORATORY RBC 4.23 (L) 4.58 - [place] RYAN 5.54 [facility] x10(6)/[facility] LABORATORY Hemoglobin 12.3 (L) 13.[address] [facility] 16.5 g/dL [facility] LABORATORY Hematocrit 37.7 (L) 40.[address] [facility] 48.5 % [facility] LABORATORY MCV 89.1 82.[address] [facility] 93.1 [facility] LABORATORY MCH 29.1 27.5 - [place] 32.1 pg [facility] LABORATORY MCHC 32.6 32.0 - [place] 35.7 g/dL [facility] LABORATORY Platelets 215 145 - 357 [facility] x10(3)/[facility] LABORATORY RDWSD 49.8 (H) 36.0 - [place] 45.0 [facility] LABORATORY RDWCV 15.2 (H) 11.4 - [facility] R[facility]AN 13.8 % [facility] LABORATORY MPV 9.2 7.6 - 12.9 [facility] LABORATORY nRBC % Auto 0.0 % [facility] LABORATORY nRBC Abs Auto 0.000 0.000 - [facility] R[facility] 0.000 [facility] x10(3)/[facility] LABORATORY Specimen Anatomical Collection Method Collection Time Receive d Time (Source) Location / / Volume Laterality Blood 12/25/2021 7:46 AM 8:01 EDT AM EDT Resulting Agency Comment Spec In Lab Liz Poole STEPHANEI HEMATOLOGY ORDERABLES Performing Organization Address City/State/[place] [address] (ABNORMAL) Basic Metabolic Panel (non-fasting) (12/25/2021 7:46 AM EDT) P athologist Signature Glucose Lvl 272 (H) 65 - 199 [facility] mg/dL [facility] LABORATORY Comment: Diabetes: >=200 mg/dL plus symp toms BUN 62 (H) 10 - 20 mg/dL [facility] LABORATORY Creatinine 1.81 (H) 0.80 - 1.50 mg/dL [facility] LABORATORY Sodium 134 (L) 135 - 145 mmol/L [facility] LABORATORY Potassium 4.9 3.5 - 5.0 mmol/L [facility] [...] LABORATORY Calcium 9.4 8.5 - 10.5 mg/dL [facility] LABORATORY Estimated GFR 36 (L) >=60 [...] Organization Address City/State/[place] [address] (ABNORMAL) pro-Brain Natriuretic Peptide (12/25/2021 7:46 AM EDT) P athologist Signature ProBNP 1,380 (H) <=124 [facility] RYAN pg/mL [facility] LABORATORY Specimen Anatomical Collection Method Collection Time Receive d Time (Source) Location / / Volume Laterality Blood 12/25/2021 7:46 AM 8:01 EDT AM EDT Resulting Agency Comment Spec In Lab Zulma Plunkett MD CHEMISTRY ORDERABLES Performing Organization Address City/[facility]/[place] [address] documented in this encounter Visit Diagnoses Diagnosis Chronic systolic heart failure documented in this encounter Care Teams Smash Fixer Relationship Specialty Start Date End Date Lovely Vicente MD PCP - General 04/16/[address] [place] [address] documented as of this encounter
--- OUTSIDE RECORDS SUMMARY | 2022-02-23 08:50 | XMS_ITS | Encounter Summary ---
:1945 Author Organization [facility] [place] [address] Care Team Providers Name Role Phone Lovely Vicente MD Primary Care Provider Encounter Details Date Type Department Care Team Description 02/19/2022 Laboratory Appointment Lab 3L [facility] systolic [facility] [place] [phone] Social History Tobacco Use Types Packs/Day Years [...] Nobles MD [facility] ER CARDIOLOGY [place], [place] 0[address] (Wo rk) documented as of [...] (ABNORMAL) Differential, Automated (02/19/2022 8:06 AM EDT) [facility] Method Time Signature Neutrophils % 76.0 % [facility] LABORATORY Neutr Abs (ANC) 5.49 1.70 - [facility] 6.10 [facility] x10(3)/[facility] LABORATORY Lymphocytes % 10.8 % [facility] LABORATORY Lymphocytes Abs 0.8 (L) 0.9 - 3.2 [facility] x10(3)/[facility] LABORATORY Monocytes % 10.2 % [facility] LABORATORY Monocyte Abs 0.7 0.3 - 0.9 [facility] x10(3)/[facility] LABORATORY Eosinophils % 1.2 % [facility] LABORATORY Eosinophils Abs 0.1 0.0 - 0.4 [facility] x10(3)/[facility] LABORATORY Basophils % 0.8 % [facility] LABORATORY Basophils Abs 0.1 0.0 - 0.1 [facility] x10(3)/[facility] LABORATORY Immature Gran % 1.00 % [facility] LABORATORY Comment: Immature granulocytes(IG's)percentage an d absolute count will include metamyelocytes, myelocytes, and promyelo cytes. Blood smears from CBCs yielding IG's will be scanned manually for concor dance. If this scan disagrees with the automated IG or if promyelocytes are not ed, a manual differential will be performed. Melisa Gran Abs 0.07 (H) 0.00 - 0.04 x10(3)/[facility] LABORATORY Specimen Anatomical Collection Method Collection Time Receive d Time (Source) Location / / Volume Laterality Blood 02/19/2022 8:06 AM 8:09 EDT AM EDT Resulting Agency Comment Spec In Lab Liz BROWN HEMATOLOGY ORDERABLES Performing Organization Address City/State/[place] [address] (ABNORMAL) Hemogram (02/19/2022 8:06 AM EDT) Analysis Performed At Patho logist Time Signature WBC 7.2 4.0 - 9.5 [facility] x[facility](3[facility] LABORATORY RBC 4.41 (L) 4.58 - [place] [facility] 5.54 [facility] x10(6)/[facility] LABORATORY Hemoglobin 13.2 (L) 13.7 - [facility].5 g/dL [facility] LABORATORY Hematocrit 40.9 40.5 - [facility] 48.5 % [facility] LABORATORY MCV 92.7 82.9 - [facility] 93.1 [facility] LABORATORY MCH 29.9 27.5 - [facility] 32[facility] [facility] LABORATORY MCHC 32.3 32.0 - [facility] 35.7 g/dL [facility] LABORATORY Platelets 191 145 - 357 [facility] x10(3)/[facility] LABORATORY RDWSD 53.6 (H) 36.0 - [facility] RYAN 45.0 [facility] LABORATORY RDWCV 15.6 (H) 11.4 - [facility] RYAN 13.8 % [facility] LABORATORY MPV 8.7 7.6 - 12.9 [facility] LABORATORY nRBC % Auto 0.0 % [facility] LABORATORY nRBC Abs Auto 0.000 0.000 - [facility] R[facility] 0.000 [facility] x10(3)/[facility] LABORATORY Specimen Anatomical Collection Method Collection Time Receive d Time (Source) Location / / Volume Laterality Blood 02/19/2022 8:06 AM 8:09 EDT AM EDT Resulting Agency Comment Spec In Lab Liz BROWN HEMATOLOGY ORDERABLES Performing Organization Address City/State/[place] [address] (ABNORMAL) pro-Brain Natriuretic Peptide (02/19/2022 8:06 AM EDT) P athologist Signature ProBNP 984 (H) <=449 pg/mL [facility] LABORATORY Specimen Anatomical Collection Method Collection Time Receive d Time (Source) Location / / Volume Laterality Blood 02/19/2022 8:06 AM 8:09 EDT AM EDT Resulting Agency Comment Spec In Lab Zulma Plunkett MD CHEMISTRY ORDERABLES Performing Organization Address City/State/[place] [address] (ABNORMAL) Basic Metabolic Panel (non-fasting) (02/19/2022 8:06 AM EDT) P athologist Signature Glucose Lvl 139 65 - 199 [facility] mg/dL [facility] LABORATORY Comment: Diabetes: >=200 mg/dL plus symp toms BUN 31 (H) 10 - 20 mg/dL [facility] LABORATORY Creatinine 1.53 (H) 0.80 - 1.50 mg/dL [facility] LABORATORY Sodium 142 135 - 145 mmol/L [facility] LABORATORY Potassium 5.4 (H) 3.5 - 5.0 mmol/L [facility] LABORATORY Comment: Please note: ??Patients with WBC >100,00 0 may have falsely elevated Potassium levels. ??For accurate Potassium quantif ication in these patients send serum separator tube (gold top) for subsequent determinations. ??Contact the Clinical Chemistry Laboratory if there are any qu estions. Chloride 100 98 - 107 mmol/L [facility] LABORATORY CO2 31 22 - 31 mmol/L [facility] LABORATORY Anion Gap 11 5 - 15 mmol/L [facility] LABORATORY Calcium 9.7 8.5 - 10.5 mg/dL [facility] LABORATORY Estimated GFR 47 (L) >=60 mL/min/1.73 m?? [facility] [...] Organization Address City/State/ZIP [place] [address] documented in this encounter Visit Diagnoses Diagnosis Chronic systolic heart failure documented in this encounter Care Teams Cotton Stomper Relationship Specialty Start Date End Date Lovely Vicente MD PCP - General 04/16/[address] [place] [address] documented as of this encounter
--- OUTSIDE RECORDS SUMMARY | 2022-02-23 08:50 | XMS_ITS | Encounter Summary ---
:1945 Author Organization [facility] [place] [address] Care Team Providers Name Role Phone Lovely Vicente MD Primary Care Provider Reason for Visit Reason Onset Date Comments Medication Refill 12/12/2021 Torsemide Encounter Details Date Type Department Care Team Description 12/12/2021 Refill Cardiology at [facility] Janneth Padilla, Medication Refill [facility] STEPHANIE (Torsemide) [place] [phone] CARDIOLOGY DEPT. [place], [place] 0[address] (Wo rk) Social History Tobacco [...] Cardiology Vitaliy Nobles MD [facility] ER DR [address] [place], [place] 0[address] (Wo rk) documented as of this encounter Visit Diagnoses Diagnosis Chronic systolic heart failure documented in this encounter Care Teams Airport Ramp Supervisor Relationship Specialty Start Date End Date Lovely Vicente MD PCP - General 9/22/[address] [place] [address] documented as of this encounter
--- OUTSIDE RECORDS SUMMARY | 2022-02-23 08:50 | XMS_ITS | Encounter Summary ---
:1945 Author Organization [facility] Address [facility] [place] [address] Care Team Providers Name Role Phone Lovely Vicente MD Primary Care Provider Reason for Visit Reason Comments Prior Authorization Entresto 24-26mg tablets Encounter Details Date Type Department Care Team Description 02/20/2022 Specialty Pharmacy Pharmacy at [facility] [place] [place] Lamberto Smith Prior Authorization [facility] J (Entresto 24-26mg Drive tablets) [place] [phone] Social History Tobacco Use Types Packs/Day Years Used Date Former Smoker Cigarettes 3 5 Quit: 07/26/18 69 Smokeless Tobacco: Never Used Alcohol Use Standard Drinks/Week Comments No 0 (1 standard drink = 0.6 oz pure alcoho l) Sex Assigned at Date Recorded Not on file documented as of this encounter Progress Notes Lamberto Smith J - 02/20/2022 3:16 PM EDT [facility], No Prior Authorization Required Patient: Don Fatima Patient : 1945 Patient Address: [address] [place] [address] [place] [address] (home) Medication Name: ENTRESTO 24 MG-26 MG TABLET Medication ID: [id number] Patient Location: [facility] [place] [place] CARDIOLOGY 4A Patient Location Comment: Medication Strength Frequency Requested: Entresto 24-26mg tablets / One tablet twice daily Qty/Day Supply: New Start: New to Therapy Diagnosis & ICD-10 Code: Chronic systolic heart failure, I50.22 Subscriber Insurance: [employer] [facility] Subscriber Insurance Comment: Fax: Physician: ARIK CARRERA Physician Comment : PA Status: NO PA REQUIRED Insurance mandated Pharmacy: Unknown Fillable at [facility]: Yes Insurance requirements/notes: None Copay: $119.01 (goes to coverage gap/odalys monteiro) Copay assistance: [employer] Copay assistance comment: If cost isn't affordable, then we'll suggest enrollment in the currently open [facility] Heart Failure zoila, which provides up to $1000 in copay assistance. If zoila closes, or doesn't work out, then the patient can attempt enrollment in the mechanical engineering draftsperson assistance program, the [employer] Patient [employer] (NPAF). At which point we'd refer to [facility] for assistance with enrollment. Pharmacy staff will be reaching out to the patient to inform them of their medication's approval by their insurance. If applicable, a pharmacist will speak with the patient to offer our specialty pharmacy services and to arrange delivery of their medication. Lamberto Smith 02/20/22 3:21 PM documented in this encounter Plan of Treatment Upcoming Encounters Date Type Specialty Care Team Description 03/26/2022 Office Visit Cardiology Vitaliy Nobles MD [facility] CARDIOLOGY [place], [place] [address] (Wo rk) documented as of this encounter Visit Diagnoses Not on filedocumented in this encounter Care Teams Flexible Shaft Winder Relationship Specialty Start Date End Date Lovely Vicente MD PCP - General 04/16/[address] [place] [address] documented as of this encounter
--- OUTSIDE RECORDS SUMMARY | 2022-02-23 08:50 | XMS_ITS | Encounter Summary ---
:1945 Author Organization [facility] Address [facility] [place] [address] Care Team Providers Name Role Phone Lovely Vicente MD Primary Care Provider Reason for Visit Auth/Cert Specialty Diagnoses / Procedures Referred By Contact Refer red To Contact Diagnoses ASCVD (arteriosclerotic cardiovascular disease) [I25.10] Vitaliy Nobles MD [facility] Procedures PRO PERC TRLUML CORONARY STENT W/ANGIO ONE ART/BRANCH CARDIAC CATHETERIZATION STENT PLACEMENT-SINGLE MAJOR CORONARY ARTERY OR BRANCH [facility] [place] [address] Referral ID Status Reason Start Date Expiration Date Visits Requ ested Visits Authorized [id number] 1 1 Encounter Details Date Type Department Care Team Description 01/30/2022 Surgery Home Health Travel Pt Asa Coulter MD CARDIAC CATHETERIZATION [facility] [place] [address] [place] [address] [phone] (Wo rk) Social History Tobacco Use Types [...] and Clopidogrel. 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 We have made a referral to cardiac rehab. Please see the attached instructions regarding care to your right wrist access site. AttachmentsThe following attachments cannot be sent through Care Everywhere. 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 I had referred him to cardiac rehab at [facility] last month per HF team. He was waiting until this intervention before starting the program. Reviewed managing angina /use of sl nitroglycerin. Given parameters for home exercise. 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 We discussed short walks several times per day. Will send [facility] his discharge summary from this admission. The patient should be contacted by the Program within 1- 2 weeks from discharge. Brief Op Note - Vitaliy Nobles MD - 01/30/2022 10:19 AM EDT Images from the original note were not included. [facility] [place] [address] [address] CORONARY ANGIOGRAM AND PERCUTANEOUS CORONARY INTERVENTION REPORT Patient: Don Fatima : 1945 MR number: [id number] Date of Service: 01/30/2022 Services Manager: Vitaliy Nobles MD Fellow: KEYON Elizabeth INDICATION: [...] a long 2.0 x 26 mm HAR[place]EP [place] TUCKER stent and positioned it at the [...] using a 2.0 x 26 mm HARDEEP [place] TUCKER stent. This completes the revascularization ofall [...] MD [facility]ARDI[facility] [place] [id number] (Wo rk) Scheduled Orders Name Type Priority [...] P athologist Signature Neutrophils % 71.8 % [facility] Neutr Abs (ANC) 3.96 1.70 - [facility] 6.10 [facility] x10(3)/[facility] LABORATORY Lymphocytes % 16.3 % [facility] Lymphocytes Abs 0.9 0.9 - 3.2 [facility] x10(3)/[facility] LABORATORY Monocytes % 10.0 % [facility] Monocyte Abs 0.6 0.3 - 0.9 [facility] x10(3)/[facility] LABORATORY Eosinophils % 0.5 % [facility] Eosinophils Abs 0.0 0.0 - 0.4 [facility] x10(3)/[facility] LABORATORY Basophils % 0.5 % [facility] Basophils Abs 0.0 0.0 - 0.1 [facility] x10(3)/[facility] LABORATORY Immature Gran % 0.90 % [facility] Comment: Immature granulocytes(IG's)percentage an d absolute count will include metamyelocytes, myelocytes, and promyelo cytes. Blood smears from CBCs yielding IG's will be scanned manually for concor dance. If this scan disagrees with the automated IG or if promyelocytes are not ed, a manual differential will be performed. Melisa Gran Abs 0.05 (H) 0.00 - 0.04 x10(3)/[facility] LABORATORY Specimen Anatomical Collection Method Collection Time Receive d Time (Source) Location / / Volume Laterality Blood 01/30/2022 2:12 PM 2 2:37 EDT PM EDT Resulting Agency Comment Spec In Lab Eddi Elizabeth Jr., MD HEMATOLOGY ORDERABLES Performing Organization Address City/State/[place] [address] (ABNORMAL) Hemogram (01/30/2022 2:12 PM EDT) Analysis Performed At Patho logist Time Signature WBC 5.5 4.0 - 9.5 [facility] x10(3)/[facility] LABORATORY RBC 4.30 (L) 4.58 - [facility] 5.54 [facility] x10(6)/[facility] LABORATORY Hemoglobin 12.7 (L) 13.7 - [facility] 16.[facility] g/dL [facility] Hematocrit 39.4 (L) 40.5 - [facility] RYAN 48.5 % [facility] MCV 91.6 82.9 - [facility] RYAN 93.1 [facility] LABORATORY MCH 29.5 27.5 - [employer] 32.1 pg [facility] MCHC 32.2 32.0 - [facility] 35.7 g/dL [facility] Platelets 172 145 - 357 [facility] x10(3)/[facility] LABORATORY RDWSD 54.5 (H) 36.0 - [place] [facility] 45.0 [facility] LABORATORY RDWCV 16.4 (H) 11.4 - [facility] RYAN 13.8 % [facility] MPV 9.2 7.6 - 12.9 [facility] LABORATORY nRBC % Auto 0.0 % [facility] nRBC Abs Auto 0.000 0.000 - [facility] 0.000 [facility] x10(3)/[facility] LABORATORY Specimen Anatomical Collection Method Collection Time Receive d Time (Source) Location / / Volume Laterality Blood 01/30/2022 2:12 PM 2 2:37 EDT PM EDT Resulting Agency Comment Spec In Lab Eddi Elizabeth Jr., MD HEMATOLOGY ORDERABLES Performing Organization Address City/State/[place] [address] (ABNORMAL) Basic Metabolic Panel (non-fasting) (01/30/2022 2:12 PM EDT) P athologist Signature Glucose Lvl 163 65 - 199 [facility] mg/dL [facility] Comment: Diabetes: >=200 mg/dL plus symp toms BUN 30 (H) 10 - 20 mg/dL [facility] Creatinine 1.47 0.80 - 1.50 mg/dL [facility] Sodium 140 135 - 145 mmol/L [facility] Potassium 4.2 3.5 - 5.0 mmol/L [facility] [...] 15 mmol/L [facility] Calcium 9.2 8.5 - 10.5 mg/dL [facility] Estimated GFR 49 (L) >=60 mL/min/1.73 m?? [facility] [...] Nobles MD CHEMISTRY ORDERABLES Performing Organization Address City/[facility]/[place] [address] POCT Glucose (01/30/2022 1:41 PM EDT) athologist Signature POC Glucose 148 65 - 199 [facility] mg/dL [facility] Comment: Supplemental ranges: <140 mg/dL before meals <180 mg/dL all other times of the day Specimen Anatomical Collection Method Collection Time Receive d Time (Source) Location / / Volume Laterality Blood 01/30/2022 1:41 PM 2 1:41 EDT PM EDT Vitaliy Nobles MD POINT OF CARE TEST ORDERABLE S Performing Organization Address City/[facility]/[place] [address] POCT Glucose (01/30/2022 10:48 AM EDT) P athologist Signature POC Glucose 193 65 - 199 [place] [facility] mg/dL [facility] Comment: Supplemental ranges: <140 mg/dL before meals <180 mg/dL all other times of the day Specimen Anatomical Collection Method Collection Time Receive d Time (Source) Location / / Volume Laterality Blood 01/30/2022 10:48 01/30/2022 AM EDT 10:48 AM EDT Vitaliy Nobles MD POINT OF CARE TEST ORDERABLE S Performing Organization Address City/[facility]/[place] [address] EKG 12 Lead (01/30/2022 10:33 AM EDT) Component Value Ref Range Test Analysis Performed Pathologis t Method Time At Signature Ventricular rate 64 BPM MUSE SYSTEM Atrial Rate 64 BPM MUSE SYSTEM P-R Interval 162 ms MUSE SYSTEM QRS Duration 94 ms MUSE SYSTEM Q-T Interval 422 ms MUSE SYSTEM QTC Calculated 435 ms MUSE SYSTEM (Bezet) Calculated P Lawrence 41 degrees MUSE SYSTEM Calculated R Lawrence -27 degrees MUSE SYSTEM Calculated T Lawrence 104 degrees MUSE SYSTEM INTERPRETATION Normal sinus rhythm MUSE SYSTEM Anterolateral infarct (cited on or before 09-DEC-2021) Abnormal ECG When compared with ECG of 10-DEC-2021 11:17, No significant change was found Confirmed by Gary Perez ([id number]) on 01/30/2022 5:57:5 2 PM Specimen Anatomical [...] SYSTEM - 01/30/2022 2:09 PM ED T ?[facility] ? Cardiac Cathete rization/Intervention Report ? Patient Name: KushalDon ? Procedure Date: 01/30/2022 ? A #: [id number] ? Primary Physician: Vitaliy Nobles ? Case #: [id number] ? File Name: [id number] ? Catheterization Order Number: [id number] ? [facility] ? Final Report [place], [place] ? Patient Name: ? Don E. Stewa rt ? ID#: ?[id number] ? : ?1945 ? Procedure Date: ? [...] procedure was Urgent. The indication for ?the slabber visit is stable kn own CAD. Chest [...] guiding catheter an d a 3.[address] [facility] [address] ??20 Mhz ?using Manual pullback. ??Imagin [...] A premounted 2.00 x 26 mm Hard[place]ep [place] (TUCKER) ? was deployed wi th a [...] Wedelivered along 2.0 x 26 mm HARDEEP [place] ? TUCKER stent and p ositioned it [...] dose administered prior to arrival in the slabber. ?Recommended anti-platelet/anti- thrombotic regimen: ?Continue aspirin 81 [...] may require ?modification of this regimen. [facility] Interventional Cardiology for ?questions. ?The 1 year [...] using a 2.0 x 26 mm HARDEEP [place] TUCKER stent. ?This completes the revasculariz ation [...] 212 (H) 65 - 199 [facility] mg/dL [facility] Comment: Supplemental ranges: <140 mg/dL before meals <180 mg/dL all other times of the day Specimen Anatomical Collection Method Collection Time Receive d Time (Source) Location / / Volume Laterality Blood 01/30/2022 9:04 AM 2 9:04 EDT AM EDT Vitaliy Nobles MD POINT OF CARE TEST ORDERABLE S Performing Organization Address [facility]/[place] [address] (ABNORMAL) POCT Glucose (01/30/2022 8:10 AM EDT) P athologist Signature POC Glucose 224 (H) 65 - 199 [facility] mg/dL [facility] Comment: Supplemental ranges: <140 mg/dL before meals <180 mg/dL all other times of the day Specimen Anatomical Collection Method Collection Time Receive d Time (Source) Location / / Volume Laterality Blood 01/30/2022 8:10 AM 2 8:10 EDT AM EDT Vitaliy Nobles MD POINT OF CARE TEST ORDERABLE S Performing Organization Address City/[facility]/[place] [address] documented in this encounter Visit Diagnoses Diagnosis ASCVD (arteriosclerotic cardiovascular d isease) Unspecified cardiovascular disease 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 ASHD (arteriosclerotic heart disease) Coronary atherosclerosis of unspecified type of vessel, hoopa or graft ASCVD (arteriosclerotic cardiovascular d isease) Unspecified cardiovascular disease documented in this encounter Admitting Diagnoses Diagnosis CAD (coronary artery disease) Coronary atherosclerosis of unspecified type of vessel, hoopa or graft documented in this encounter Administered [...] Given 02/2022 10:11 AM EDT 100 mcg (MANAGER FASHION) ONCE PRN, Starting on Wed01/30/22 at 0927, [...] Procedure), Routine niCARdipine (Cardene) (100 mcg/mL) dilution (MANAGER FASHION) (CANCELED ) 0927 (Given - Provider: Vitaliy [...] (Intra-Procedure) documented in this encounter Care Teams Communications Advisor Relationship Specialty Start Date End Date Lovely Vicente MD PCP - General 04/16/[address] [place] [address] documented as of this encounter
--- OUTSIDE RECORDS SUMMARY | 2022-02-23 08:51 | XMS_ITS | Encounter Summary ---
:1945 Author Organization [facility] [place] [address] Care Team Providers Name Role Phone Lovely Vicente MD Primary Care Provider Reason for Referral Consultation (Routine) - Closed Specialty Diagnoses / Referred By Contact Referred To Contact Procedures Cardiac Rehabilitation Diagnoses Acute HFrEF (heart failure with reduced ejection fraction) Janneth Padilla, Cardiac Rehab, [address] [place], [place] CARDIOLOGY DEPT. [address] [place] [address] Referral ID Status Reason Start Date Expiration Date Visits V isits Requested Authorized [id number] Closed Consult, 12/12/2021 12/12/2022 36 36 Test & Treat Reason for Visit Auth/Cert Specialty Diagnoses / Procedures Referred By Contact Refer red To Contact Diagnoses NSTEMI Procedures emerg ipi Referral ID Status Reason Start Date Expiration Date Visits Requ ested Visits Authorized [id number] 1 1 Encounter Details Date Type Department Care Team Description 12/08/2021 - Hospital Encounter Intermediate Cardiac Iker Cuevas MD [facility] [place] [address] Non-ST elevation myocardial infarction ( NSTEMI); 12/12/2021 Care Unit Ifeanyi Rene MD [facility] [place] [address] ST elevation myocardial infarction (STEM I), unspecified artery; [facility] Acute HFr EF (heart failure with reduced ejection fraction) [place] [address] Social History Tobacco Use Types Packs/Day Years [...] Don Fatima Patient Age: 76 y.o. Language: Setswana Race: White Ethnicity: Not nor Admit date: [...] Peter PA-C Kelly LaFlamme PA-C Cardiovascular Medicine [phone] Discharge Diagnoses (Hospital Problems) and Secondary Diagnoses [...] 3.75 guiding catheter and a 3.5 Fr [facility] [place] [facility] 20 Mhz using Manual pullback. Imaging was successful. Image quality was good. The ostial LCX showed moderate diffuse atherosclerotic plaque with scattered three quadrant calcification. Measurements were performed after pre-dilation. Post Intervention: The stent was well expanded and apposed. Intravascular Ultrasound was performed in the distal LM using a 7 Fr EBU 3.75 guiding catheter and a 3.5 Fr [facility] [place] [facility] [place] 20 Mhz using Manual pullback. Imaging was [...] may require modification of this regimen. Consult [facility] Interventional Cardiology for questions. The 1 year [...] vascular congestion and cardiomegaly. ?? TTE from [facility] 12/08/21 ? Prior Cardiac Studies: [...] prior thyroidectomy in 2012 who presented to [facility] with 1 week progressing breathlessness [...] 03/2021 with Liz Poole PA-C. ?? At [facility], respiratory distress with hypoxia 86% [...] mg PO daily in place of lasix. [place] is new for him and he will have a BMP checked on 12/[address] Cuevas spoke with the patient's and told her that him drinking too much water and diet drinks did not cause his GA. This is what his thought was the [...] to be ~$24/mo; affordable per patient. Post [facility] he was started on Eliquis. He [...] appointments: During 8am-5pm Wednesday through Wednesday call [phone] to speak with a nurse in the cardiology clinic All other times call [phone] and ask to speak to the chief communications officer garage construction equipment mechanic. Return to work: One week Driving: No driving for 48 hours after catheterization. Follow up Appointments: PCP Lovely Vicente MD [phone] to see patient at the end of December for annual check up. Patient to see Dr. Lorenzana at 1120 am at December 19 for a post hospital check up. Gis Software Developer Dr. De Oliveira to see you in [facility]. Left a message for office to set a date and time. Please call [phone] Nobles to see the patient for a same day cath in 2-3 weeks from now. Office to call with a date and time. For questions please call [phone] Home oxygen therapy: N/A Arrangements for VNA/home care: none Future Appointments and Orders Future Orders Complete By Expires Basic Metabolic Panel (non-fasting) [LAB15 Custom] 12/19/2021 (Approximate) 12/12/2022 Process Instructions: INCLUDES: Calcium, BUN, Creat, GFR, Glucose, Lytes Scheduling Instructions: Comments: Questions: Referral to Cardiac Rehab [[id number] Custom] As directed Process Instructions: If no [...] appointments: During 8am-5pm Wednesday through Wednesday call [phone] to speak with a nurse in the cardiology clinic All other times call [phone] and ask to speak to the chief communications officer garage construction equipment mechanic. Return to work: One week Driving: No driving for 48 hours after catheterization. Follow up Appointments: PCP Lovely Vicente MD [phone] to see patient at the end of December for annual check up. Patient to see Dr. Lorenzana at 1120 am at December 19 for a post hospital check up. Gis Software Developer Dr. De Oliveira to see you in [facility]. Left a message for office to set a date and time. Please call [phone] Nobles to see the patient for a same day cath in 2-3 weeks from now. Office to call with a date and time. For questions please call [phone] Home oxygen therapy: N/A Arrangements for VNA/home [...] 3 02/19/2022 mg Tablet 2 times daily. acetaminophen Take 2 tablets by 0 [...] Progress Note Patient Name: Don Fatima Service: LITHOGRAPHIC ETCHER / PA Responsible Attending: Ifeanyi Truong MD [...] was given Lasix 80mg IV x1 in hospital laboratory technician. Tolerated procedure well. Home today at [...] pulmonary vascular congestion and cardiomegaly. TTE from [facility] 12/08/21 Prior Cardiac Studies: TTE [...] with MD Janneth Neville PA 12/12/2021 Pager [phone] Associated attestation - Ifeanyi Truong MD - [...] ratio for each meal) Desirae Jett APRN [facility] Endocrinology Diabetes Management Pager [phone] 20 minutes of this 35 minute visit [...] Progress Note Patient Name: Don Fatima Service: LITHOGRAPHIC ETCHER / PA Responsible Attending: Iker Cuevas MD [...] + trop. Known CAD with hx of GA and CABG. DM. MARIA VICTORIA.ICM. ??? ASHD [...] was given Lasix 80mg IV x1 in hospital laboratory technician. Tolerated procedure well. Review of Systems: [...] TROPONINT 1.13* 0.92* 0.89* Pertinent Radiographic/Diagnostic Results: R/[facility] 12/10/21 Hemodynamics: Right Heart Pressures Resting: [...] pulmonary vascular congestion and cardiomegaly. TTE from [facility] 12/08/21 Prior Cardiac Studies: TTE [...] and answered his questions. Iker Cuevas MD [facility] Total time spent on review of records prior to visit, face to face time with patient during visit, documentation, and coordination of care with other clinicians: 25 minutes. . Iker Cuevas MD - 12/10/2021 12:30 PM EDT Images from the original note were not included. Inpatient Cardiology Progress Note Patient Name: Don Fatima Service: LITHOGRAPHIC ETCHER / PA Responsible Attending: Iker Cuevas MD Reason for continued hospitalization: NSTEMI- s/p R/LHC- PCW 27, occluded SVGs s/p PCI to ostial LCX ADHF and hypoxia- IV diuresis Active Problems: Active Hospital Problems Diagnosis ??? Admitted with 2 days of sob, hypoxemia, and + trop. Known CAD with hx of GA and CABG. DM. MARIA VICTORIA.ICM. ??? ASHD [...] was given Lasix 80mg IV x1 in hospital laboratory technician. Tolerated procedure well. Review of Systems: [...] ??? heparin (porcine) infusion 1,600 Units/hr (12/09/21 2527) PRN Meds:ipratropium-albuteroL, senna-docusate, bisacodyL, sodium chloride 0.9 [...] TROPONINT 1.13* 0.92* 0.89* Pertinent Radiographic/Diagnostic Results: R/[facility] 12/10/21 Hemodynamics: Right Heart Pressures Resting: [...] pulmonary vascular congestion and cardiomegaly. TTE from [facility] 12/08/21 Prior Cardiac Studies: TTE [...] Discussed with MD Migdalia Peter PA-C Pager #[phone] 12/10/2021 Cardiology Attending Note I have seen [...] updated and given pictures. Iker Cuevas MD [facility] Total time spent on review of records prior to visit, face to face time with patient during visit, documentation, and coordination of care with other clinicians: 35 minutes. Iker Cuevas MD - 12/09/2021 7:28 AM EDT Images from the original note were not included. Inpatient Cardiology Progress Note Patient Name: Don Fatima Service: LITHOGRAPHIC ETCHER / PA Responsible Attending: Iker Cuevas MD Reason for continued hospitalization: NSTEMI- awaiting R/LHC ADHF and hypoxia- IV diuresis, R/LHC Active Problems: Active Hospital Problems Diagnosis ??? Admitted with 2 days of sob, hypoxemia, and + trop. Known CAD with hx of GA and CABG. DM. MARIA VICTORIA.ICM. ??? ASHD [...] pulmonary vascular congestion and cardiomegaly. TTE from [facility] 12/08/21 Prior Cardiac Studies: TTE [...] Discussed with MD Migdalia Peter PA-C Pager #[phone] 12/09/2021 Cardiology Attending Note I have seen and examined the patient. I agree with the findings above. Developed CHF early this am despite getting more iv lasix last evening. Feeling better now. INR > 2. Lungs still wet at base. Echo at [facility] showed EF 35% with mild mod MR slightly lower than last value here. -vit K 2.5 orally to facilitate correction of INR- this will take 12-24 hours to take effect -furosemide 80 mg iv now -postpone right and left heart cath until tomorrow given INR and ADHF -increase statin to achieve LDL < 70 -CPAP tonight Iker Cuevas MD MS [facility] Total time spent on review [...] + trop. Known CAD with hx of GA and CABG. DM. MARIA VICTORIA.ICM. ??? ASHD [...] prior thyroidectomy in 2012 who presented to [facility] with 1 week progressing breathlessness [...] visit 03/2021 with Liz Poole PA-C. At [facility], respiratory distress with hypoxia 86% [...] SNARE performed by Nohemi Jaimes MD at [facility] ENDOSCOPY ??? PRO DRESSING CHANGE [...] COMPLETE performed by Manny Mcknight MD at [facility] MAIN OR Significant Family History: Family [...] (H) 65 - 199 mg/dL Labs at [facility] 12/08/2021-troponin I 8004 (UN L [...] Monitor for ADRs. Trend troponins. Admission EKG. [facility] 12/09; consented. TTE. Telemetry monitoring, daily [...] code #Diet-carb control; n.p.o. after midnight for [facility] #DVT prophy- heparin infusion #GI prophy- PPI Discussed with MD Morgan Peter PA-C APP2 pager [phone] 12/08/2021 Cardiology Attending Note I have seen [...] is type 1 due to graft or wales coronary stenosis vs acute injury from CHF. 3. PAF: currrently in NSR. Have replaced warfarin with heparin 4. PAD: stable 5. DM: stable 6. CKD: will monitor and minimize contrast. Pt very appreciative of Dr. Yuan Retana's care in 2018. Will let him know patient is here. Iker Cuevas MD [facility] documented in this encounter Miscellaneous [...] Type: *No Product type* / Secondary Insurance: SupplyBid Prescription Coverage: Yes This plan was formulated [...] A/P. Post cardiac cath without complications. Migdalia Pakrer PA-C Pager #[phone] 12/10/2021 Initial Assessments - Nick Georges RN [...] COVID test: Lab Results Component Value Date [id number] Not Detected 12/08/2021 Past medical History: Past [...] spouse would be surrogate decision maker per [place] decision making law. (Only good for 180 days) Any patient receiving care at [facility] must abide by [place] law. The hierarchy for surrogate decision making [...] (i) The agent with financial power of compliance attorney or a conservator appointed in accordance [...] - standard, cane - straight Home Address: [address] [place] [address] [place] [address] Social & Family Supports: All names listed below confirmed with patient as current and correct Extended Emergency Contact Information Primary Emergency Contact: Kisha Fatima Address: [address] [place] [address] [place] [address] [facility] Mobile Relation: Spouse Secondary Emergency Contact: Elba Swenson Address: [address] Mobile Relation: Child Current Care Provided [...] type* / Secondary Insurance: BLUE CROSS BLUE [facility] Prescription Coverage: Yes Preferred Pharmacy: [facility] [address] [address] - [place], [place] - [address] [place] [address] Status: Patient is a : unable to assess Primary Care Provider: Lovely Vicente MD [phone] Patient/Caregiver Goals of Treatment: Get out of here Potential Needs for Transition of Care: none Agency Referrals: none patient has used [employer] in the past Transportation: no concerns Transportation Anticipated: family or friend will provide Concerns to be Addressed: patient refuses services, discharge planning Assessment: Patient is [facility] Service pager [phone] for 76 y.o.??male??with h/o??CAD s/p 3vCABG (THOMPSON-LAD, [...] status on current unit. Nick Georges RN air cargo specialist, Office of Care Management Pager: [phone] Brief Op Note - Vitaliy Nobles MD - 12/10/2021 8:31 AM EDT Images from the original note were not included. [facility] [place] [address] [address] CORONARY ANGIOGRAM AND PERCUTANEOUS CORONARY INTERVENTION REPORT Patient: Don Fatima : 1945 MR number: [id number] Date of Service: 12/10/2021 Marker Maker: Vitaliy Nobles MD Fellow: Rancho Woods MD [...] management and to provide a review of watermelon inspector diabetes care. Diabetes History: Don Fatima has had diabetes for 10 years. He has been on insulin for the last several years andis managed by his PCP. Lives in [place], [place] with his . States that he [...] Hold] heparin (porcine) infusion 1,600 Units/hr (12/09/21 4907) PRN: [MAR Hold] ipratropium-albuteroL, [MAR Hold] senna-docusate, [...] 5 gm carb ratio for each meal) [facility] diabetes care: Medications - Outpatient treatment regimen recommendations pending based on the hospital course. Monitoring - continue BG tid ac & hs Diet - low fat/low carb diet Exercise - weight-bearing exercise 30 min/day, as tolerated Thank you for allowing us to provide care for your patient Desirae Johnie QUINONES Endocrinology Pager [phone] 70 minutes of this 80 minute visit [...] + trop. Known CAD with hx of GA and CABG. DM. MARIA VICTORIA.ICM. ??? ASHD [...] to remain on Med/Surg floor, please page [phone] for any further questions or concerns. LANDON [...] for further details. STEPHANIE Rebolledo 12/08/2021 Pager [phone] documented in this encounter Plan of Treatment Upcoming Encounters Date Type Specialty Care Team Description 03/26/2022 Office Visit Cardiology Vitaliy Nobles MD [facility] DR [facility] [place] [address] (Wo rk) Scheduled Referrals Name Type [...] Glucose 215 (H) 65 - 199 [facility] mg/dL [facility] Comment: Supplemental ranges: <140 mg/dL before meals <180 mg/dL all other times of the day Specimen Anatomical Collection Method Collection Time Receive d Time (Source) Location / / Volume Laterality Blood 12/12/2021 7:42 AM 7:42 EDT AM EDT Ifeanyi Truong MD POINT OF CARE TEST ORDERABLE S Performing Organization Address City/State/[place] [address] (ABNORMAL) Differential, Automated (12/12/2021 4:51 AM EDT) athologist Signature Neutrophils % 75.4 % [facility] Neutr Abs (ANC) 5.95 1.70 - [facility] 6.10 [facility] x10(3)[facility] LABORATORY Lymphocytes % 12.2 % [facility] Lymphocytes Abs 1.0 0.9 - [address].2 [facility] x10(3)/[facility] LABORATORY Monocytes % 9.5 % [facility] Monocyte Abs 0.8 0.3 - [address].9 [facility] x10(3)[facility] LABORATORY Eosinophils % 1.8 % [facility] Eosinophils Abs 0.1 0.0 - [address].4 [facility] x10(3)/[facility] LABORATORY Basophils % 0.5 % [facility] Basophils Abs 0.0 0.0 - [address].1 [facility] x10(3)/[facility] LABORATORY Immature Gran % 0.60 [...] Gran Abs 0.05 (H) 0.00 - 0.04 x10(3)/[facility] LABORATORY Specimen Anatomical Collection Method Collection Time Receive d Time (Source) Location / / Volume Laterality Blood 12/12/2021 4:51 AM 5:06 EDT AM EDT Resulting Agency Comment Spec In Lab Bijan Sun MD HEMATOLOGY ORDERABLES Performing Organization Address City/State/[place] [address] (ABNORMAL) Hemogram (12/12/2021 4:51 AM EDT) Analysis Performed At Patho logist Time Signature WBC 7.9 4.0 - 9.5 [facility] x10(3)/[facility] LABORATORY RBC 4.19 (L) 4.58 - [facility] 5.54 [facility] x10(6)/[facility] LABORATORY Hemoglobin 12.1 (L) 13.7 - [facility] 16.5 g/dL [facility] Hematocrit 36.7 (L) 40.5 - [facility] 48.5 % [facility] MCV 87.6 82.9 - [facility]1 [facility] LABORATORY MCH 28.9 27.5 - [facility] SU 32.1 pg [facility] MCHC 33.0 32.0 - [facility] 35.7 g/dL [facility] Platelets 231 145 - 357 [facility] x10(3)/[facility] LABORATORY RDWSD 47.2 (H) 36.0 - [facility] Nival 45.0 [facility] LABORATORY RDWCV 14.6 (H) 11.4 - [facility] SU 13.8 % [facility]ORY MPV 9.5 7.6 - 12.9 [facility] LABORATORY nRBC % Auto 0.0 % [facility] nRBC Abs Auto 0.000 0.000 - [facility] SU 0.000 [facility] x10(3)/[facility] LABORATORY Specimen Anatomical Collection Method Collection Time Receive d Time (Source) Location / / Volume Laterality Blood 12/12/2021 4:51 AM 2 5:06 EDT AM EDT Resulting Agency Comment Spec In Lab Bijan Sun MD HEMATOLOGY ORDERABLES Performing Organization Address City/[facility]/ZIP [place] [address] (ABNORMAL) Prothrombin Time (12/12/2021 4:51 AM EDT) P athologist Signature PT 14.9 (H) 9.4 - 12.5 [facility] LABORATORY INR 1.3 [facility] Comment: An INR <2.0 [...] Cuevas MD HEMATOLOGY ORDERABLES Performing Organization Address City/[facility]/[place]IP [place] [address] (ABNORMAL) BMP w/fasting Glucose (12/12/2021 4:51 AM EDT) P athologist Signature Glucose 152 (H) 65 - 99 [facility] Fasting mg/dL [facility] Comment: ?Fasting* Glucose Interpretive [...] of Diabetes Mellitus, Position Statement from the [place] [employer]. ??Diabete s Care, Volume 33, Supplement 1, Jul 2009 BUN 52 (H) 10 - 20 mg/dL [facility] Creatinine 1.72 (H) 0.80 [...] estions. Chloride 105 98 - 107 mmol/L [facility] CO2 21 (L) 22 - 31 mmol/L [facility] Anion Gap 17 (H) 5 - 15 mmol/L [facility] Calcium 8.9 8.5 - 10.5 mg/dL [facility] Estimated GFR 38 (L) >=60 mL/min/1.73 m?? [facility] [...] Address City/State/[place] [address] Magnesium (12/12/2021 4:51 AM EDT) athologist Signature Magnesium 1.02 0.69 - 1.07 [facility] mmol/L [facility] Specimen Anatomical Collection Method Collection Time Receive d Time (Source) Location / / Volume Laterality Blood 12/12/2021 4:51 AM 2 5:06 EDT AM EDT Resulting Agency Comment Spec In Lab Iker Cuevas MD CHEMISTRY ORDERABLES Performing Organization Address City/[facility]/ZIP Code Phon e Number [address] POCT Glucose (12/12/2021 3:43 AM EDT) athologist Signature POC Glucose 138 65 - 199 [facility] mg/dL [facility] Comment: Supplemental ranges: <140 mg/dL before meals <180 mg/dL all other times of the day Specimen Anatomical Collection Method Collection Time Receive d Time (Source) Location / / Volume Laterality Blood 12/12/2021 3:43 AM 2 3:43 EDT AM EDT Iker Cuevas MD POINT OF CARE TEST ORDERABLE S Performing Organization Address City/[facility]/ZIP Code Phon e Number [address] POCT Glucose (12/11/2021 11:44 PM EDT) athologist Signature POC Glucose 124 65 - 199 [facility] mg/dL [facility] Comment: Supplemental ranges: <140 mg/dL before meals <180 mg/dL all other times of the day Specimen Anatomical Collection Method Collection Time Receive d Time (Source) Location / / Volume Laterality Blood 12/11/2021 11:44 12/11/2021 PM EDT 11:44 PM EDT Iker Cuevas MD POINT OF CARE TEST ORDERABLE S Performing Organization Address City/State/ZIP Code [place] [address] (ABNORMAL) POCT Glucose (12/11/2021 8:12 PM EDT) athologist Signature POC Glucose 200 (H) 65 - 199 [facility] mg/dL [facility] Comment: Supplemental ranges: <140 mg/dL before meals <180 mg/dL all other times of the day Specimen Anatomical Collection Method Collection Time Receive d Time (Source) Location / / Volume Laterality Blood 12/11/2021 8:12 PM 2 8:12 EDT PM EDT Iker Cuevas MD POINT OF CARE TEST ORDERABLE S Performing Organization Address City/State/ZIP [place] [address] (ABNORMAL) POCT Glucose (12/11/2021 6:50 PM EDT) athologist Signature POC Glucose 245 (H) 65 - 199 [facility] mg/dL [facility] Comment: Supplemental ranges: <140 mg/dL before meals <180 mg/dL all other times of the day Specimen Anatomical Collection Method Collection Time Receive d Time (Source) Location / / Volume Laterality Blood 12/11/2021 6:50 PM 2 6:50 EDT PM EDT Iker Cuevas MD POINT OF CARE TEST ORDERABLE S Performing Organization Address City/State/ZIP [place] [address] (ABNORMAL) POCT Glucose (12/11/2021 4:00 PM EDT) athologist Signature POC Glucose 383 (H) 65 - 199 [facility] mg/dL [facility] Comment: Supplemental ranges: <140 mg/dL before meals <180 mg/dL all other times of the day Specimen Anatomical Collection Method Collection Time Receive d Time (Source) Location / / Volume Laterality Blood 12/11/2021 4:00 PM 2 4:00 EDT PM EDT Iker Cuevas MD POINT OF CARE TEST ORDERABLE S Performing Organization Address City/State/[place] [address] [facility] [address] (ABNORMAL) POCT Glucose (12/11/2021 12:01 PM EDT) P athologist Signature POC Glucose 342 (H) 65 - 199 [facility] mg/dL [facility] Comment: Supplemental ranges: <140 mg/dL before meals <180 mg/dL all other times of the day Specimen Anatomical Collection Method Collection Time Receive d Time (Source) Location / / Volume Laterality Blood 12/11/2021 12:01 12/11/2021 PM EDT 12:01 PM EDT Iker Cuevas MD POINT OF CARE TEST ORDERABLE S Performing Organization Address City/State/ZIP Code Phon e Number [place] [phone] COVID-19 PCR (12/11/2021 10:13 AM EDT) Patholo gist Method Time Signature SARS-CoV-2 Not Detected Not Detected [facility] RNA [facility] Comment: This result [...] diagnosis of COVID-19 is performed using the [employer] m RONNA S-CoV-2 Assay as authorized by the FDA Emergency Use Authorization (EUA). This EUA assay is intended for In-vitro Diagnostic (IVD) use with respiratory sp ecimens such as nasopharyngeal swabs collected from individuals during the ac terrence phase of infection. This assay is performed based on the instructions for use provided by [employer] and additional guidance provided by CDC and FDA. Testing is performed in the Clinical Genomics and Advanced Technolog y Laboratory within the Department of Pathology and Laboratory Medicine at [facility], certified under the Clinical Laboratory Improvement [...] clinical management guidance information are available at [facility] CDC Coronavirus Disease 2019 (COVID-19) webpage under Information fo r Healthcare Professionals (https://www.cdc.gov/coronavirus/2019-nc ov/hcp/index.html) Additional information about this and ot her EUA tests can be found in provider and patient fact sheets at the following FDA website: https://www.fda.gov/medical-devices/bbyfvvricba-qfdkvhc-6241-zvxcx-88-ikvmcqxtc- euk-mbcawarkkdnmki-xzulpjv-devices/demup-whqugqjhqjj-ppwn SARS-Cov-2 RNA Source LITHOGRAPHIC ETCHER Swab [facility] Specimen (Source) Anatomical Collection Method Collection Time Re ceived Time Location / / Volume Laterality Nasopharyngeal Swab 12/11/2021 10:13 0503/2022 AM EDT 11:16 AM EDT Comment: Symptoms->Surveillance Resulting Agency Comment Spec In Lab Iker Cuevas MD MICROBIOLOGY - GENERAL ORDER [place] Performing Organization Address City/State/ZIP Code Phon e Number [place] [id number] POCT Glucose (12/11/2021 7:34 AM EDT) athologist Signature POC Glucose 198 65 - [facility] mg/dL [facility] Comment: Supplemental ranges: <140 mg/dL before meals <180 mg/dL all other times of the day Specimen Anatomical Collection Method Collection Time Receive d Time (Source) Location / / Volume Laterality Blood 12/11/2021 7:34 AM 2 7:34 EDT AM EDT Iker Cuevas MD POINT OF CARE TEST ORDERABLE S Performing Organization Address City/State/ZIP Code Phon e Number [address] (ABNORMAL) POCT Glucose (12/11/2021 5:07 AM EDT) athologist Signature POC Glucose 208 (H) 65 - 199 [facility] mg/dL [facility] Comment: Supplemental ranges: <140 mg/dL before meals <180 mg/dL all other times of the day Specimen Anatomical Collection Method Collection Time Receive d Time (Source) Location / / Volume Laterality Blood 12/11/2021 5:07 AM 2 5:07 EDT AM EDT Iker Cuevas MD POINT OF CARE TEST ORDERABLE S Performing Organization Address City/State/ZIP Code Phon e Number [address] (ABNORMAL) Differential, Automated (12/11/2021 4:28 AM EDT) [facility] gist Method Time Signature Neutrophils % 79.6 % [facility] Neutr Abs (ANC) 7.01 (H) 1.70 - [facility] 6.10 [facility] x10(3)/[facility] L LABORATORY Lymphocytes % 9.1 % [facility] Lymphocytes Abs 0.8 (L) 0.9 - 3.2 [facility] x10(3)/[facility] LABORATORY Monocytes % 9.2 % [facility] Monocyte Abs 0.8 0.3 - 0.9 [facility] x10(3)/[facility] LABORATORY Eosinophils % 1.3 % [facility] Eosinophils Abs 0.1 0.0 - 0.4 [facility] x10(3)/[facility] LABORATORY Basophils % 0.5 % [facility] Basophils Abs 0.0 0.0 - 0.1 [facility] x10(3)/[facility] LABORATORY Immature Gran % 0.30 % [facility] Comment: Immature granulocytes(IG's)percentage an d absolute count will include metamyelocytes, myelocytes, and promyelo cytes. Blood smears from CBCs yielding IG's will be scanned manually for concor dance. If this scan disagrees with the automated IG or if promyelocytes are not ed, a manual differential will be performed. Melisa Gran Abs 0.03 0.00 - 0.04 x10(3)/[facility] MAR Y [facility]ORATORY Specimen Anatomical Collection Method Collection Time Receive d Time (Source) Location / / Volume Laterality Blood 12/11/2021 4:28 AM 4:37 EDT AM EDT Resulting Agency Comment Spec In Lab Bijan Sun MD HEMATOLOGY ORDERABLES Performing Organization Address City/State/[place] [address] (ABNORMAL) Hemogram (12/11/2021 4:28 AM EDT) Analysis Performed At Patho logist Time Signature WBC 8.8 4.0 - 9.5 [facility] x10(3)/[facility] LABORATORY RBC 4.15 (L) 4.58 - [facility] 5.54 [facility] x10(6)/[facility] LABORATORY Hemoglobin 11.9 (L) 13.7 - [facility] 16.5 g/dL [facility] Hematocrit 36.9 (L) 40.5 - [facility] 48.5 % [facility] MCV 88.9 82.9 - [facility] 93.1 fL [facility] MCH 28.7 27.5 - [facility] 32.1 pg [facility] MCHC 32.2 32.0 - [facility] 35.7 g/dL [facility] Platelets 211 145 - 357 [facility] x10(3)/[facility] LABORATORY RDWSD 48.3 (H) 36.0 - [facility] 45.0 [facility] LABORATORY RDWCV 14.8 (H) 11.4 - [facility] 13.8 % [facility] LABORATORY MPV 9.6 7.6 - 12.9 [facility] LABORATORY nRBC % Auto 0.0 % [facility] nRBC Abs Auto 0.000 0.000 - [facility] 0.000 [facility] x10(3)/[facility] LABORATORY Specimen Anatomical Collection Method Collection Time Receive d Time (Source) Location / / Volume Laterality Blood 12/11/2021 4:28 AM 2 4:37 EDT AM EDT Resulting Agency Comment Spec In Lab Bijan Sun MD HEMATOLOGY ORDERABLES Performing Organization Address City/[facility]/ZIP [place] [address] (ABNORMAL) Prothrombin Time (12/11/2021 4:28 AM EDT) P athologist Signature PT 17.7 (H) 9.4 - 12.5 [facility] LABORATORY INR 1.6 [facility] Comment: An INR <2.0 [...] Cuevas MD HEMATOLOGY ORDERABLES Performing Organization Address City/[facility]/ZIP [place] [address] (ABNORMAL) BMP w/fasting Glucose (12/11/2021 4:28 AM EDT) athologist Signature Glucose 207 (H) 65 - 99 [facility] Fasting mg/dL [facility] Comment: ?Fasting* Glucose Interpretive [...] of Diabetes Mellitus, Position Statement from the [place] [employer]. ??Diabete s Care, Volume 33, Supplement 1, Jul 2009 BUN 49 (H) 10 - 20 mg/dL [facility] LABORATORY Creatinine 1.43 0.80 - [...] - 107 mmol/L [facility] CO2 23 22 - 31 mmol/L [facility] Anion Gap 15 5 - 15 mmol/L [facility] Calcium 8.6 8.5 - 10.5 mg/dL [facility] LABORATORY Estimated GFR 48 (L) >=60 mL/min/1.73 m?? [facility] LABOR[facility]ORY [...] Cuevas MD CHEMISTRY ORDERABLES Performing Organization Address City/[facility]/ZIP Code Phon e Number [address] Magnesium (12/11/2021 4:28 AM EDT) P athologist Signature Magnesium 1.04 0.69 - 1.07 [facility] mmol/L [facility]OR[facility]ORY Specimen Anatomical Collection Method Collection Time Receive d Time (Source) Location / / Volume Laterality Blood 12/11/2021 4:28 AM 2 4:37 EDT AM EDT Resulting Agency Comment Spec In Lab Iker Cuevas MD CHEMISTRY ORDERABLES Performing Organization Address City/[facility]/ZIP [place] [address] POCT Glucose (12/11/2021 3:58 AM EDT) P athologist Signature POC Glucose 189 65 - 199 [facility] mg/dL [facility] Comment: Supplemental ranges: <140 mg/dL before meals <180 mg/dL all other times of the day Specimen Anatomical Collection Method Collection Time Receive d Time (Source) Location / / Volume Laterality Blood 12/11/2021 3:58 AM 2 3:58 EDT AM EDT Iker Cuevas MD POINT OF CARE TEST ORDERABLE S Performing Organization Address City/[facility]/ZIP [place] [address] (ABNORMAL) POCT Glucose (12/10/2021 11:45 PM EDT) athologist Signature POC Glucose 205 (H) 65 - 199 [facility] mg/dL [facility] Comment: Supplemental ranges: <140 mg/dL before meals <180 mg/dL all other times of the day Specimen Anatomical Collection Method Collection Time Receive d Time (Source) Location / / Volume Laterality Blood 12/10/2021 11:45 12/10/2021 PM EDT 11:45 PM EDT Iker Cuevas MD POINT OF CARE TEST ORDERABLE S Performing Organization Address City/State/ZIP Code Phon e Number [address] (ABNORMAL) POCT Glucose (12/10/2021 7:54 PM EDT) athologist Signature POC Glucose 225 (H) 65 - 199 [facility] mg/dL [facility] Comment: Supplemental ranges: <140 mg/dL before meals <180 mg/dL all other times of the day Specimen Anatomical Collection Method Collection Time Receive d Time (Source) Location / / Volume Laterality Blood 12/10/2021 7:54 PM 2 7:54 EDT PM EDT Iker Cuevas MD POINT OF CARE TEST ORDERABLE S Performing Organization Address City/State/Z[place] [address] Potassium (12/10/2021 7:46 PM EDT) athologist Signature Potassium 4.2 3.5 - 5.0 [facility] mmol/L [facility] Comment: Please note: ??Patients [...] Organization Address City/State/[place] [address] (ABNORMAL) Basic Metabolic Panel (non-fasting) (12/10/2021 6:12 PM EDT) P athologist Signature Glucose Lvl 246 (H) 65 - [address] [facility] mg/dL [facility] Comment: Diabetes: >=200 mg/dL plus symp toms BUN 50 (H) 10 - 20 mg/dL [facility] LABORATORY Creatinine 1.39 0.80 - 1.50 mg/dL [facility] LABORATORY Sodium 138 135 - 145 mmol/L [facility] LABORATORY Potassium Not Perf 3.5 - 5.0 [facility] LABORATORY Comment: Unable to quantitate due [...] - 107 mmol/L [facility] CO2 22 22 - 31 mmol/L [facility] Anion Gap 16 (H) 5 - 15 mmol/L [facility] LAB[facility]ORY Calcium 8.3 (L) 8.5 [...] Cuevas MD CHEMISTRY ORDERABLES Performing Organization Address City/[facility]/ZIP Code Phon e Number [address] POCT Glucose (12/10/2021 4:59 PM EDT) athologist Signature POC Glucose 158 65 - 199 [facility] mg/dL [facility] Comment: Supplemental ranges: <140 mg/dL before meals <180 mg/dL all other times of the day Specimen Anatomical Collection Method Collection Time Receive d Time (Source) Location / / Volume Laterality Blood 12/10/2021 4:59 PM 2 4:59 EDT PM EDT Iker Cuevas MD POINT OF CARE TEST ORDERABLE S Performing Organization Address City/[facility]/ZIP Code Phon e Number [address] (ABNORMAL) POCT Glucose (12/10/2021 12:43 PM EDT) athologist Signature POC Glucose 241 (H) 65 - 199 [facility] mg/dL [facility] Comment: Supplemental ranges: <140 mg/dL before meals <180 mg/dL all other times of the day Specimen Anatomical Collection Method Collection Time Receive d Time (Source) Location / / Volume Laterality Blood 12/10/2021 12:43 12/10/2021 PM EDT 12:43 PM EDT Iker Cuevas MD POINT OF CARE TEST ORDERABLE S Performing Organization Address City/[facility]/ZIP [place] [address] EKG 12 Lead (12/10/2021 11:17 AM EDT) Component Value Ref Range Test Analysis Performed Pathologis t Method Time At Signature Ventricular rate 62 BPM MUSE SYSTEM Atrial Rate 62 BPM MUSE SYSTEM P-R Interval 142 ms MUSE SYSTEM QRS Duration 100 ms MUSE SYSTEM Q-T Interval 434 ms MUSE SYSTEM QTC Calculated 440 ms MUSE SYSTEM (Bezet) Calculated P Pinson 34 degrees MUSE SYSTEM Calculated R Pinson -39 degrees MUSE SYSTEM Calculated T Pinson 92 degrees MUSE SYSTEM INTERPRETATION Normal sinus [...] 12:04 PM E DT ?[facility] ? Cardiac Cathete rization/Intervention Report ? Patient Name: Don Fatima. ? Procedure Date: 12/10/2021 ? A #: [id number] ? Primary Physician: Nobles, Vitaliy P ? Case #: [id number] ? File Name: [id number] ? Catheterization Order Number: [id number] ? [facility] ? Final Report [place], [place] ? Patient Name: ? Don E. Stewa rt ? ID#: ?[id number] ? : ?1945 ? Procedure Date: ? [...] ?designated as ASA Class III. Th e [facility] clinical frailty scale is 5: [...] procedure was Urgent. The indication for ?the hospital laboratory technician visit is ACS great er than [...] ?3.75 guiding catheter and a 3.5 Fr [facility] 20 Mhz using Manual ?pullback. ??Imaging was [...] ?3.75 guiding catheter and a 3.5 Fr [facility] 20 Mhz using Manual ?pullback. ??Imaging was [...] require ?modification of this regimen. C onsult [facility] Interventional Cardiology for ?questions. ?The 1 year bleeding risk as nusrat culated by the PRECISE DAPT score is High ?risk. ?High Bleeding Risk - Anticoagul ation and DAPT: ?- ??Assess ischemic and bleedin g risks using validated risk predictors ?(e.g. CHADS2-VASC, HAS-BLED, AR ECISE DAPT, DAPT Score) ?- ??Keep anticoagulant [...] Nobles MD - 01/14/[address] [facility] Cardiac Catheterization/Intervention Re port Patient Name: Don Fatima Procedure Date: 12/10/2021 A #: [id number] Primary Physician: Vitaliy Nobles Case #: [id number] File Name: [id number] Catheterization Order Number: [id number] [facility] [place], [place] Patient Name: Don Fatima ID#: [...] e was Urgent. The indication for the hospital laboratory technician visit is ACS greater than 24 [...] and a 3.5 Fr [facility] 20 Mhz using Manual pullback. Imaging was [...] and a 3.5 Fr [facility] 20 Mhz using Manual pullback. Imaging was [...] require modification of this regimen. Consult D [facility] Interventional Cardiology for [...] POC Glucose 262 (H) 65 - 199 [facility] mg/dL [facility] Comment: Supplemental ranges: <140 mg/dL before meals <180 mg/dL all other times of the day Specimen Anatomical Collection Method Collection Time Receive d Time (Source) Location / / Volume Laterality Blood 12/10/2021 10:30 12/10/2021 AM EDT 10:30 AM EDT Iker Cuevas MD POINT OF CARE TEST ORDERABLE S Performing Organization Address City/[facility]/ZIP [place] [address] (ABNORMAL) POCT Glucose (12/10/2021 9:48 AM EDT) athologist Signature POC Glucose 279 (H) 65 - 199 [facility] mg/dL [facility] Comment: Supplemental ranges: <140 mg/dL before meals <180 mg/dL all other times of the day Specimen Anatomical Collection Method Collection Time Receive d Time (Source) Location / / Volume Laterality Blood 12/10/2021 9:48 AM 2 9:48 EDT AM EDT Iker Cuevas MD POINT OF CARE TEST ORDERABLE S Performing Organization Address City/[facility]/ZIP [place] [address] (ABNORMAL) POCT Glucose (12/10/2021 9:07 AM EDT) athologist Signature POC Glucose 268 (H) 65 - 199 [facility] mg/dL [facility] Comment: Supplemental ranges: <140 mg/dL before meals <180 mg/dL all other times of the day Specimen Anatomical Collection Method Collection Time Receive d Time (Source) Location / / Volume Laterality Blood 12/10/2021 9:07 AM 2 9:07 EDT AM EDT Iker Cuevas MD POINT OF CARE TEST ORDERABLE S Performing Organization Address City/State/[place] [address] (ABNORMAL) Point of Care Blood Gas Historical (12/10/2021 9:04 AM EDT) Patholo gist Method Time Signature POC pH 7.40 7.35 - [facility] 7.45 [facility] LABORATORY POC PCO2 40 35 - 45 [facility] mmHg [facility] LABORATORY POC PO2 63 (L) 85 - 104 [facility] LABORATORY POC Base Excess 0.0 -3.0 - 3.0 [facility] K mmol/L [facility] LABORATORY POC HCO3 24.8 20.0 - [facility] 26.0 [facility] mmol/[facility] LABORATORY POC Sodium 143 135 - [address] [facility] mmol/L [facility] LABORATORY POC Potassium 3.7 3.5 - 5.0 [facility] mmol/L [facility] LABORATORY POC Ionized Ca 1.07 (L) 1.15 - [facility] 1.33 [facility] POC Hematocrit 30.0 (L) 40.0 - [facility] 51.0 % [facility] LABOR[facility]ORY POC Calc Hgb 10.2 (L) 13.7 - [facility] 17.5 g/dL [facility] Comment: The calculation of hemoglobin f rom hematocrit assumes a normal MCHC. POC Bgas Loc CC LAB [facility] LABORATORY Specimen Anatomical Collection Method Collection Time Receive d Time (Source) Location / / Volume Laterality Blood 12/10/2021 9:04 AM 2 EDT 12:00 PM EDT Ifeanyi Truong MD CHEMISTRY ORDERABLES Performing Organization Address City/State/[place] [address] (ABNORMAL) POCT Glucose (12/10/2021 7:19 AM EDT) P athologist Signature POC Glucose 274 (H) 65 - [address] [facility] mg/dL [facility] Comment: Supplemental ranges: <140 mg/dL before meals <180 mg/dL all other times of the day Specimen Anatomical Collection Method Collection Time Receive d Time (Source) Location / / Volume Laterality Blood 12/10/2021 7:19 AM 2 7:19 EDT AM EDT Iker Cuevas MD POINT OF CARE TEST ORDERABLE S Performing Organization Address City/[facility]/ZIP [place] [address] Heparin (unfractionated) Level (12/10/2021 4:25 AM EDT) P athologist Signature Heparin UFH 0.69 IU/mL [facility] LABORATORY Comment: Heparin (anti-Xa) levels [...] Cuevas MD HEMATOLOGY ORDERABLES Performing Organization Address City/[facility]/ZIP [place] [address] (ABNORMAL) Differential, Automated (12/10/2021 4:25 AM EDT) Patholo gist Method Time Signature Neutrophils % 79.8 % [facility]OR[facility] Neutr Abs (ANC) 7.47 (H) 1.70 - [facility] 6.10 [facility] x10(3)/[facility] L LABORATORY Lymphocytes % 10.6 % [facility] Lymphocytes Abs 1.0 0.9 - 3.2 [facility] x10(3)/[facility] LABORATORY Monocytes % 8.4 % [facility] Monocyte Abs 0.8 0.3 - 0.9 [facility] x10(3)/[facility] LABORATORY Eosinophils % 0.6 % [facility] Eosinophils Abs 0.1 0.0 - 0.4 [facility] x10(3)/[facility] LABORATORY Basophils % 0.2 % [facility] Basophils Abs 0.0 0.0 - 0.1 [facility] x10(3)/[facility] LABORATORY Immature Gran % 0.40 % [facility] Comment: Immature granulocytes(IG's)percentage an d absolute count will include metamyelocytes, myelocytes, and promyelo cytes. Blood smears from CBCs yielding IG's will be scanned manually for concor dance. If this scan disagrees with the automated IG or if promyelocytes are not ed, a manual differential will be performed. Melisa Gran Abs 0.04 0.00 - 0.04 x10(3)/[facility] MAR Y [facility] LABORATORY Specimen Anatomical Collection Method Collection Time Receive d Time (Source) Location / / Volume Laterality Blood 12/10/2021 4:25 AM 4:34 EDT AM EDT Resulting Agency Comment Spec In Lab Morgan BROWN HEMATOLOGY ORDERABLES Performing Organization Address City/State/[place] [address] (ABNORMAL) Hemogram (12/10/2021 4:25 AM EDT) Analysis Performed At Patho logist Time Signature WBC 9.4 4.0 - 9.5 [facility] x10(3)/[facility] LABORATORY RBC 3.81 (L) 4.58 - [facility] 5.54 [facility] x10(6)/[facility] LABORATORY Hemoglobin 11.1 (L) 13.7 - [facility] 16.5 g/dL [facility] LABORATORY Hematocrit 34.0 (L) 40.5 - [facility] 48.5 % [facility] LABORATORY MCV 89.2 82.9 - [facility] 93.1 fL [facility] LABORATORY MCH 29.1 27.5 - [facility] 32.1 pg [facility] LABORATORY MCHC 32.6 32.0 - [facility] 35.7 g/dL [facility] LABORATORY Platelets 183 145 - 357 [facility] x10(3)/[facility] LABORATORY RDWSD 49.9 (H) 36.0 - [facility] SU 45.0 [facility] LABORATORY RDWCV 15.2 (H) 11.4 - [facility] 13.8 % [facility] LABORATORY MPV 9.8 7.6 - 12.9 [facility] LABORATORY nRBC % Auto 0.0 % [facility] LABORATORY nRBC Abs Auto 0.000 0.000 - [facility] 0.000 [facility] x10(3)/[facility] LABORATORY Specimen Anatomical Collection Method Collection Time Receive d Time (Source) Location / / Volume Laterality Blood 12/10/2021 4:25 AM 2 4:34 EDT AM EDT Resulting Agency Comment Spec In Lab Morgan BROWN HEMATOLOGY ORDERABLES Performing Organization Address City/[facility]/[place] [address] (ABNORMAL) Prothrombin Time (12/10/2021 4:25 AM EDT) P athologist Signature PT 20.0 (H) 9.4 - 12.5 [facility] LABORATORY INR 1.7 [facility] LABORATORY Comment: An INR <2.0 [...] Organization Address City/State/ZIP Code Phon e [place] [facility] [place] [address] (ABNORMAL) BMP w/fasting Glucose (12/10/2021 4:25 AM EDT) athologist Signature Glucose 210 (H) 65 - 99 [facility] Fasting mg/dL [facility] LABORATORY Comment: ?Fasting* Glucose Interpretive [...] of Diabetes Mellitus, Position Statement from the [place] [employer]. ??Diabete s Care, Volume 33, Supplement 1, Jul 2009 BUN 54 (H) 10 - 20 mg/dL [facility] LABORATORY Creatinine 1.52 (H) 0.80 [...] - 107 mmol/L [facility] CO2 23 22 - 31 mmol/L [facility] Anion Gap 13 5 - 15 mmol/L [facility] LABORATORY Calcium 8.0 (L) 8.5 - 10.5 mg/dL [facility] LABORATORY Estimated GFR 44 (L) >=60 mL/min/1.73 m?? [facility] LABORATORY [...] Address City/State/ZIP [place] [address] Magnesium (12/10/2021 4:25 AM EDT) P athologist Signature Magnesium 0.95 0.69 - 1.07 [facility] mmol/L [facility] LABORATORY Specimen Anatomical Collection Method Collection Time Receive d Time (Source) Location / / Volume Laterality Blood 12/10/2021 4:25 AM 2 4:34 EDT AM EDT Resulting Agency Comment Spec In Lab Iker Cuevas MD CHEMISTRY ORDERABLES Performing Organization Address City/State/ZIP [place] [address] POCT Glucose (12/10/2021 1:58 AM EDT) P athologist Signature POC Glucose 164 65 - 199 [facility] mg/dL [facility] LAB[facility]ORY Comment: Supplemental ranges: <140 mg/dL before meals <180 mg/dL all other times of the day Specimen Anatomical Collection Method Collection Time Receive d Time (Source) Location / / Volume Laterality Blood 12/10/2021 1:58 AM 2 1:58 EDT AM EDT Iker Cuevas MD POINT OF CARE TEST ORDERABLE S Performing Organization Address City/State/[place] [address] (ABNORMAL) POCT Glucose (12/09/2021 9:02 PM EDT) athologist Signature POC Glucose 313 (H) 65 - 199 [facility] mg/dL [facility] LABORATORY Comment: Supplemental ranges: <140 mg/dL before meals <180 mg/dL all other times of the day Specimen Anatomical Collection Method Collection Time Receive d Time (Source) Location / / Volume Laterality Blood 12/09/2021 9:02 PM 2 9:02 EDT PM EDT Iker Cuevas MD POINT OF CARE TEST ORDERABLE S Performing Organization Address City/[facility]/ZIP [place] [address] Heparin (unfractionated) Level (12/09/2021 7:30 PM EDT) athologist Signature Heparin UFH 0.48 IU/mL [facility] LABORATORY Comment: Heparin (anti-Xa) levels [...] Organization Address City/State/[place] [address] (ABNORMAL) Basic Metabolic Panel (non-fasting) (12/09/2021 7:30 PM EDT) athologist Signature Glucose Lvl 372 (H) 65 - [address] [facility] mg/dL [facility] LABOR[facility]ORY Comment: Diabetes: >=200 mg/dL plus symp toms BUN 56 (H) 10 - 20 mg/dL [facility] LABORATORY Creatinine 1.75 (H) 0.80 [...] - 107 mmol/L [facility]ORATORY CO2 22 22 - 31 mmol/L [facility] Anion Gap 14 5 - 15 mmol/L [facility] LABORATORY Calcium 8.1 (L) 8.5 - 10.5 mg/dL [facility] LABORATORY Estimated GFR 37 (L) >=60 mL/min/1.73 m?? [facility] LABORATORY [...] Cuevas MD CHEMISTRY ORDERABLES Performing Organization Address City/[facility]/ZIP Code Phon e Number [address] (ABNORMAL) POCT Glucose (12/09/2021 6:34 PM EDT) P athologist Signature POC Glucose 408 (H) 65 - 199 [facility] mg/dL [facility] LABORATORY Comment: Supplemental ranges: <140 mg/dL before meals <180 mg/dL all other times of the day Specimen Anatomical Collection Method Collection Time Receive d Time (Source) Location / / Volume Laterality Blood 12/09/2021 6:34 PM 2 6:34 EDT PM EDT Iker Cuevas MD POINT OF CARE TEST ORDERABLE S Performing Organization Address City/[facility]/ZIP [place] [address] (ABNORMAL) POCT Glucose (12/09/2021 6:32 PM EDT) P athologist Signature POC Glucose 356 (H) 65 - 199 [facility]dL [facility] Comment: Supplemental ranges: <140 mg/dL before meals <180 mg/dL all other times of the day Specimen Anatomical Collection Method Collection Time Receive d Time (Source) Location / / Volume Laterality Blood 12/09/2021 6:32 PM 2 6:32 EDT PM EDT Iker Cuevas MD POINT OF CARE TEST ORDERABLE S Performing Organization Address City/[facility]/ZIP [place] [address] (ABNORMAL) POCT Glucose (12/09/2021 4:19 PM EDT) P athologist Signature POC Glucose 347 (H) 65 - 199 [facility] mg/dL [facility] LABOR[facility]ORY Comment: Supplemental ranges: <140 mg/dL before meals <180 mg/dL all other times of the day Specimen Anatomical Collection Method Collection Time Receive d Time (Source) Location / / Volume Laterality Blood 12/09/2021 4:19 PM 2 4:19 EDT PM EDT Iker Cuevas MD POINT OF CARE TEST ORDERABLE S Performing Organization Address City/[facility]/ZIP Code Phon e Number [place] [id number] Heparin (unfractionated) Level (12/09/2021 1:29 PM EDT) athologist Signature Heparin UFH 0.42 IU/mL [facility] LABORATORY Comment: Heparin (anti-Xa) levels [...] Cuevas MD HEMATOLOGY ORDERABLES Performing Organization Address City/[facility]/ZIP [place] [address] (ABNORMAL) POCT Glucose (12/09/2021 12:02 PM EDT) athologist Signature POC Glucose 235 (H) 65 - 199 [facility] mg/dL [facility] LABORATORY Comment: Supplemental ranges: <140 mg/dL before meals <180 mg/dL all other times of the day Specimen Anatomical Collection Method Collection Time Receive d Time (Source) Location / / Volume Laterality Blood 12/09/2021 12:02 12/09/2021 PM EDT 12:02 PM EDT Iker Cuevas MD POINT OF CARE TEST ORDERABLE S Performing Organization Address City/[facility]/ZIP [place] [address] (ABNORMAL) POCT Glucose (12/09/2021 9:44 AM EDT) athologist Signature POC Glucose 214 (H) 65 - 199 [facility] mg/dL [facility] LABORATORY Comment: Supplemental ranges: <140 mg/dL before meals <180 mg/dL all other times of the day Specimen Anatomical Collection Method Collection Time Receive d Time (Source) Location / / Volume Laterality Blood 12/09/2021 9:44 AM 9:44 EDT AM EDT Iker Cuevas MD POINT OF CARE TEST ORDERABLE S Performing Organization Address [facility]/ZIP [place] [address] EKG 12 Lead (12/09/2021 7:57 AM EDT) Component Value Ref Range Test Analysis Performed Pathologis t Method Time At Signature Ventricular rate 101 BPM MUSE SYSTEM Atrial Rate 101 BPM MUSE SYSTEM P-R Interval 150 ms MUSE SYSTEM QRS Duration 112 ms MUSE SYSTEM Q-T Interval 364 ms MUSE SYSTEM QTC Calculated 471 ms MUSE SYSTEM (Bezet) Calculated P Pinson 59 degrees MUSE SYSTEM Calculated R Pinson -42 degrees MUSE SYSTEM Calculated T Pinson 102 degrees MUSE SYSTEM INTERPRETATION Sinus tachycardia Occasional Premature ventricular com plexes MUSE SYSTEM Left axis deviation 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) Abnormal ECG When compared with ECG of 08-DEC-2021 16:40, Premature ventricular complexes are now Present Confirmed by MD Fernandez Danette ([id number]) on 12/10/2021 4:55:06 PM Specimen Anatomical Collection Method Collection Time Receive d Time (Source) Location / / Volume Laterality 12/09/2021 7:57 AM 4:55 EDT PM EDT Iker Cuevas MD ECG ORDERABLES Performing Organization Address City/[facility]/ZIP Code Phon e Number MUSE SYSTEM (ABNORMAL) POCT Glucose (12/09/2021 7:28 AM EDT) P athologist Signature POC Glucose 263 (H) 65 - 199 [facility]dL [facility]ORY Comment: Supplemental ranges: <140 mg/dL before meals <180 mg/dL all other times of the day Specimen Anatomical Collection Method Collection Time Receive d Time (Source) Location / / Volume Laterality Blood 12/09/2021 7:28 AM 2 7:28 EDT AM EDT Iker Cuevas MD POINT OF CARE TEST ORDERABLE S Performing Organization Address City/State/[place] [address] (ABNORMAL) Hemoglobin A1c (12/09/2021 [...] [id number] Est Avg Gluc See note mg/dL [facility] Comment: Estimated Average [...] with hemoglobinopathies. Additional resources are available on [facility] website. Macario HAMMOND, Ruthann J, Deysi R, et al. ??Tr anslating the A1C assay into estimated average glucose values. ??Diabetes Care 2008:31(8):3738-7635. Specimen Anatomical Collection Method Collection Time Receive d Time (Source) Location / / Volume Laterality Blood Venous Draw / 12/09/2021 6:18 AM 12/10/19 22 Unknown EDT 12:24 PM EDT Resulting Agency Comment Spec In Lab Migdalia BROWN CHEMISTRY ORDERABLES Performing Organization Address [facility] [place] [address] (ABNORMAL) Prothrombin Time (12/09/2021 6:18 AM EDT) P athologist Signature PT 26.6 (H) 9.4 - 12.5 [facility] LABORATORY INR 2.3 [facility] LABORATORY Comment: An INR <2.0 [...] Migdalia BROWN HEMATOLOGY ORDERABLES Performing Organization Address [facility] [place] [address] Heparin (unfractionated) Level (12/09/2021 6:18 AM EDT) P athologist Signature Heparin UFH 0.24 IU/mL [facility] LABORATORY Comment: Heparin (anti-Xa) levels [...] Address City/State/ZIP [place] [address] (ABNORMAL) Differential, Automated (12/09/2021 6:18 AM EDT) Patholo gist Method Time Signature Neutrophils % 91.5 % [facility] LABORATORY Neutr Abs (ANC) 15.78 (H) 1.70 - [facility] 6.10 [facility] x10(3)/[facility] L LABORATORY Lymphocytes % 2.9 % [facility] LABORATORY Lymphocytes Abs 0.5 (L) 0.9 - 3.2 [facility] x10(3)/[facility] LABORATORY Monocytes % 4.9 % [facility] LABORATORY Monocyte Abs 0.8 0.3 - 0.9 [facility] x10(3)/[facility] LABORATORY Eosinophils % 0.0 % [facility] LABORATORY Eosinophils Abs 0.0 0.0 - 0.4 [facility] x10(3)/[facility] LABORATORY Basophils % 0.2 % [facility] LABORATORY Basophils Abs 0.0 0.0 - 0.1 [facility] x10(3)/[facility] LABORATORY Immature Gran % 0.50 % [facility] [...] Gran Abs 0.09 (H) 0.00 - 0.04 x10(3)/[facility] LABORATORY Specimen Anatomical Collection Method Collection Time Receive d Time (Source) Location / / Volume Laterality Blood 12/09/2021 6:18 AM 6:33 EDT AM EDT Resulting Agency Comment Spec In Lab Morgan BROWN HEMATOLOGY ORDERABLES Performing Organization Address City/State/[place] [address] (ABNORMAL) Hemogram (12/09/2021 6:18 AM EDT) Analysis Performed At Patho logist Time Signature WBC 17.2 (H) 4.0 - 9.5 [facility] x10(3)/[facility] LABORATORY RBC 4.32 (L) 4.58 - [facility] 5.54 [facility] x10(6)/[facility] LABORATORY Hemoglobin 12.6 (L) 13.7 - [facility] 16.5 g/dL [facility] LABORATORY Hematocrit 38.9 (L) 40.5 - [facility] 48.5 % [facility] LAB[facility]ATORY MCV 90.0 82.9 - [facility] 93.1 [facility] LABORATORY MCH 29.2 27.5 - [facility] 32.1 pg [facility] LABORATORY MCHC 32.4 32.0 - [facility] 35.7 g/dL [facility] LABORATORY Platelets 193 145 - 357 [facility] x10(3)/[facility] LABORATORY RDWSD 50.4 (H) 36.0 - [facility] SU 45.0 [facility] LABORATORY RDWCV 15.2 (H) 11.4 - [facility] 13.8 % [facility] LABORATORY MPV 9.5 7.6 - 12.9 [facility] LABORATORY nRBC % Auto 0.0 % [facility] LABORATORY nRBC Abs Auto 0.000 0.000 - [facility] 0.000 [facility] x10(3)/[facility] LABORATORY Specimen Anatomical Collection Method Collection Time Receive d Time (Source) Location / / Volume Laterality Blood 12/09/2021 6:18 AM 6:33 EDT AM EDT Resulting Agency Comment Spec In Lab Morgan BROWN HEMATOLOGY ORDERABLES Performing Organization Address City/State/[place] [address] Lipid Panel (Reflex Direct LDL) (12/09/2021 6:18 AM EDT) P athologist Signature Chol, Total 105 mg/dL [facility] LABORATORY Comment: Lower Risk: <200 mg/dL Average Risk: 200-239 mg/dL Higher Risk: >ri=766 mg/dL Triglycerides 133 mg/dL [facility] LABORATORY Comment: Average Risk/Lower Risk: <150 mg/dL Borderline High Risk: 150-199 mg/dL High Risk: 200-499 mg/dL Very High Risk: >qu=382 mg/dL HDL 42 mg/dL [facility] LABORATORY Comment: Males: ?? Higher Risk: <40 mg/dL Females: ?? Higher Risk: <50 mg/dL LDL Cholesterol 36 mg/dL [facility] LABORATORY Comment: Lowest Risk: <100 mg/dL Lower Risk: 100-129 mg/dL Borderline High Risk: 130-159 mg/dL High Risk: 160-189 mg/dL Very High Risk: >pj=677 mg/dL Chol/HDL Ratio 2.5 ratio [facility] LABORATORY Lipid Interpretation See Note [facility] LABORATORY Comment: Lipid management should be guided by a p atient? s ASCVD risk, goals and preferences. ACC/AHA Guidelines recommend high intens ity statin if clinical ASCVD or LDL greater than or equal to 190 mg/dL. http://tinyurl.com/ASK-YTS-Quxbzyctw Adults aged 40-75 with LDL 70-189 mg/dL should have their 10 year ASCVD risk estimated with the ACC/AHA ASCVD risk es timator http://tools.acc.org/LSDYE-Cmoh-Kwchwhlc r/ Statin should be discussed if risk [...] Cuevas MD CHEMISTRY ORDERABLES Performing Organization Address City/[facility] [place] [address] TSH (12/09/2021 6:18 AM EDT) athologist Signature TSH 1.60 0.27 - 4.20 [facility] mcIU/mL [facility] LABORATORY Comment: Reference Interval (mcIU/mL): Females: ??First Trimester: 0.23-3.88 ??Second Trimester: 0.22-3.90 ??Third Trimester: 0.44-4.66 Specimen Anatomical Collection Method Collection Time Receive d Time (Source) Location / / Volume Laterality Blood 12/09/2021 6:18 AM 2 6:33 EDT AM EDT Resulting Agency Comment Spec In Lab Iker Cuevas MD CHEMISTRY ORDERABLES Performing Organization Address City/[facility] [place] [address] Hepatic Function Panel (12/09/2021 6:18 AM EDT) P athologist Signature Total Protein 7.3 6.1 - 8.0 [facility] g/dL [facility] LABORATORY Albumin 4.2 3.2 - 5.2 [facility] g/dL [facility] LABORATORY AST 25 0 - 39 [facility] SU unit/L [facility] LABORATORY ALT 15 0 - 55 [facility]L [facility] LABORATORY Alk Phos 75 40 - 130 [facility] unit/L [facility] LABORATORY Total 1.1 0.2 - 1.3 [facility] Bilirubin mg/dL [facility] LABORATORY Bili, Direct 0.2 0.0 - 0.3 [facility] mg/dL [facility] LABORATORY Specimen Anatomical Collection Method Collection Time Receive d Time (Source) Location / / Volume Laterality Blood 12/09/2021 6:18 AM 6:33 EDT AM EDT Resulting Agency Comment Spec In Lab Iker Cuevas MD CHEMISTRY ORDERABLES Performing Organization Address City/State/ZIP [place] [address] (ABNORMAL) BMP w/fasting Glucose (12/09/2021 6:18 AM EDT) P athologist Signature Glucose 235 (H) 65 - 99 [facility] Fasting mg/dL [facility] LABORATORY Comment: ?Fasting* Glucose Interpretive [...] of Diabetes Mellitus, Position Statement from the [place] [employer]. ??Diabete s Care, Volume 33, Supplement 1, Jul 2009 BUN 49 (H) 10 - 20 mg/dL [facility] Gap 17 (H) 5 - 15 mmol/L [facility] LABORATORY Calcium 8.8 8.5 - 10.5 mg/dL [facility] LABORATORY Estimated GFR 52 (L) >=60 mL/min/1.73 m?? [facility] LABORATORY [...] Organization Address City/State/[place] [address] Magnesium (12/09/2021 6:18 AM EDT) athologist Signature Magnesium 0.81 0.69 - 1.07 [facility] mmol/L [facility] LABORATORY Specimen Anatomical Collection Method Collection Time Receive d Time (Source) Location / / Volume Laterality Blood 12/09/2021 6:18 AM 2 6:33 EDT AM EDT Resulting Agency Comment Spec In Lab Iker Cuevas MD CHEMISTRY ORDERABLES Performing Organization Address City/[facility]/[place] [address] (ABNORMAL) Troponin (12/09/2021 6:18 AM EDT) athologist Signature Troponin-T 1.13 (H) 0.00 - [facility] 0.00 ng/mL [facility] LABORATORY Comment: The 99th percentile for Troponin T is le ss than 0.01 ng/mL, any detectable cTnT concentration using this assay should be considered elevated. According to the third universal definit ion of myocardial infarction the following criteria with a clinical prese ntation consistent with acute myocardial ischemia meets the diagnosis for a myocardial infarction ([place]). Detection of a rise and/or fall of [...] sample may be indicated. Reference: Third [place] Definition of Myocardial Infarction. Journal of the [place] [employer] 2012;60:1581-98 Specimen Anatomical Collection Method Collection Time Receive d Time (Source) Location / / Volume Laterality Blood 12/09/2021 6:18 AM 2 6:33 EDT AM EDT Resulting Agency Comment Spec In Lab Iker Cuevas MD CHEMISTRY ORDERABLES Performing Organization Address City/[facility]/[place] [address] XR Chest One View [...] have questions please contact the health care clinician that requested your imaging first. ? Electronically signed by: Yoselin White, [facility] ([phone]), at 12/09/2021 5:35 AM Narrative 12/09/2021 5:35 [...] have questions please contact the health care clinician that requested your imaging first. Electronically signed by: Yoselin White, [facility] ([phone]), at 12/09/2021 5:35 AM Amber Sanches MD IMG DX ORDERABLES (ABNORMAL) BLOOD GAS 2 ARTERIAL (12/09/2021 5:14 AM EDT) Analysis Performed At Patho logist Time Signature pH Art 7.43 7.35 - [facility] 7.45 [facility] LABORATORY pCO2 Art 36 35 - 45 [facility] mmHg [facility] LABORATORY pO2 Art 67 (L) 85 - 104 [facility] mmHg [facility] LABORATORY HCO3 Art 23.4 20.0 - [facility] 26.0 [facility] mmol/L [facility] LABOR[facility] BE Art -0.9 -3.0 - 3.0 [facility] mmol/L [facility] LABORATORY Hgb Blood Gas 13.2 (L) 13.7 - [facility] 16.5 g/dL [facility] LABORATORY O2HB Art 91.3 (L) 94.0 - [facility] 97.0 % [facility] LABORATORY COHB Art 0.4 % [facility] LABORATORY Comment: Nonsmokers: 0.5-1.5% COHB Smokers: Variable, but usually less than 10% Toxic: 20-30% COHB Lethal: Greater than 60% COHB METHB Art 0.4 <=1.5 % [facility] LABORATORY Na Whole Blood 138 135 - 145 mmol/L [facility]OR[facility] K Whole Blood 4.1 3.5 - 5.0 mmol/L [facility] LABOR[facility]ORY Comment: Please note: Patients with WBC >100,000 may have falsely elevated Potassium levels. Contact the Clinical Chemistry L aboratory if there are any questions. ICa Whole Blood 1.09 (L) 1.15 - 1.33 mmol/L [facility] [...] WB 2.7 (H) 0.5 - 2.2 mmol/L [facility] LABORATORY FIO2 Art 35 % [facility] LABOR[facility] Flow Art 8.0 LPM [facility]OR[facility] PF Ratio Art [address] [facility] LABORATORY Specimen Anatomical Collection Method Collection Time Receive d Time (Source) Location / / Volume Laterality Blood 12/09/2021 5:14 AM 2 5:14 EDT AM EDT Iker Cuevas MD CHEMISTRY ORDERABLES Performing Organization Address City/[facility]/ZIP Code Phon e Number [address] POCT Glucose (12/09/2021 4:46 AM EDT) athologist Signature POC Glucose 198 65 - 199 [facility] mg/dL [facility] LABORATORY Comment: Supplemental ranges: <140 mg/dL before meals <180 mg/dL all other times of the day Specimen Anatomical Collection Method Collection Time Receive d Time (Source) Location / / Volume Laterality Blood 12/09/2021 4:46 AM 2 4:46 EDT AM EDT Iker Cuevas MD POINT OF CARE TEST ORDERABLE S Performing Organization Address City/[facility]/ZIP [place] [address] (ABNORMAL) POCT Glucose (12/09/2021 3:01 AM EDT) P athologist Signature POC Glucose 225 (H) 65 - 199 [facility] mg/dL [facility] LABORATORY Comment: Supplemental ranges: <140 mg/dL before meals <180 mg/dL all other times of the day Specimen Anatomical Collection Method Collection Time Receive d Time (Source) Location / / Volume Laterality Blood 12/09/2021 3:01 AM 3:01 EDT AM EDT Iker Cuevas MD POINT OF CARE TEST ORDERABLE S Performing Organization Address City/State/ZIP [place] [address] (ABNORMAL) POCT Glucose (12/08/2021 10:55 PM EDT) athologist Signature POC Glucose 327 (H) 65 - 199 [facility] mg/dL [facility] LAB[facility]ATORY Comment: Supplemental ranges: <140 mg/dL before meals <180 mg/dL all other times of the day Specimen Anatomical Collection Method Collection Time Receive d Time (Source) Location / / Volume Laterality Blood 12/08/2021 10:55 12/08/2021 PM EDT 10:55 PM EDT Iker Cuevas MD POINT OF CARE TEST ORDERABLE S Performing Organization Address City/State/ZIP [place] [address] Heparin (unfractionated) Level (12/08/2021 10:03 PM EDT) athologist Signature Heparin UFH 0.18 IU/mL [facility] LABORATORY Comment: Heparin (anti-Xa) levels [...] Address City/State/ZIP [place] [address] (ABNORMAL) Troponin (12/08/2021 10:03 PM EDT) athologist Signature Troponin-T 0.92 (H) 0.00 - [facility] 0.00 ng/mL [facility] LABORATORY Comment: The 99th percentile for Troponin T is le ss than 0.01 ng/mL, any detectable cTnT concentration using this assay should be considered elevated. According to the third universal definit ion of myocardial infarction the following criteria with a clinical prese ntation consistent with acute myocardial ischemia meets the diagnosis for a myocardial infarction ([place]). Detection of a rise and/or fall of [...] sample may be indicated. Reference: Third [place] Definition of Myocardial Infarction. Journal of the [place] [employer] 2012;60:1581-98 Specimen Anatomical Collection Method Collection Time Receive d Time (Source) Location / / Volume Laterality Blood 12/08/2021 10:03 12/08/2021 PM EDT 10:31 PM EDT Resulting Agency Comment Spec In Lab Iker Cuevas MD CHEMISTRY ORDERABLES Performing Organization Address City/[facility]/ZIP [place] [address] (ABNORMAL) POCT Glucose (12/08/2021 8:22 PM EDT) athologist Signature POC Glucose 429 (H) 65 - 199 [facility] mg/dL [facility] LABORATORY Comment: Supplemental ranges: <140 mg/dL before meals <180 mg/dL all other times of the day Specimen Anatomical Collection Method Collection Time Receive d Time (Source) Location / / Volume Laterality Blood 12/08/2021 8:22 PM 2 8:22 EDT PM EDT Iker Cuevas MD POINT OF CARE TEST ORDERABLE S Performing Organization Address City/[facility]/ZIP [place] [address] (ABNORMAL) POCT Glucose (12/08/2021 7:06 PM EDT) athologist Signature POC Glucose 442 (H) 65 - 199 [facility] mg/dL [facility] LAB[facility]ORY Comment: Supplemental ranges: <140 mg/dL before meals <180 mg/dL all other times of the day Specimen Anatomical Collection Method Collection Time Receive d Time (Source) Location / / Volume Laterality Blood 12/08/2021 7:06 PM 2 7:06 EDT PM EDT Iker Cuevas MD POINT OF CARE TEST ORDERABLE S Performing Organization Address City/[facility]/ZIP [place] [address] Magnesium (12/08/2021 6:02 PM EDT) athologist Signature Magnesium 0.86 0.69 - 1.07 [facility] mmol/L [facility] LABORATORY Specimen Anatomical Collection Method Collection Time Receive d Time (Source) Location / / Volume Laterality Blood 12/08/2021 6:02 PM 2 6:36 EDT PM EDT Resulting Agency Comment Spec In Lab Iker Cuevas MD CHEMISTRY ORDERABLES Performing Organization Address City/[facility]/ZIP [place] [address] (ABNORMAL) Basic Metabolic Panel (non-fasting) (12/08/2021 6:02 PM EDT) P athologist Signature Glucose Lvl 392 (H) 65 - 199 [facility] mg/dL [facility]OR[facility]ORY Comment: Diabetes: >=200 mg/dL plus symp toms BUN 41 (H) 10 - 20 mg/dL [facility] LABORATORY Creatinine 1.44 0.80 - [...] - 107 mmol/L [facility] CO2 20 (L) 22 - 31 mmol/L [facility] Anion Gap 16 (H) 5 - 15 mmol/L [facility] Calcium 8.6 8.5 - 10.5 mg/dL [facility] LABORATORY Estimated GFR 47 (L) >=60 mL/min/1.73 m?? [facility] LABOR[facility]ORY [...] City/State/ZIP Code Phon e Number [place] [phone] (ABNORMAL) Differential, Automated (12/08/2021 6:02 PM EDT) [facility] Method Time Signature Neutrophils % 89.5 % [facility]OR[facility]ORY Neutr Abs (ANC) 13.97 (H) 1.70 - [facility] 6.10 [facility] x10(3)/[facility] L LABORATORY Lymphocytes % 3.7 % [facility] Lymphocytes Abs 0.6 (L) 0.9 - 3.2 [facility] x10(3)/[facility] LABORATORY Monocytes % 6.1 % [facility] Monocyte Abs 1.0 (H) 0.3 - 0.9 [facility] x10(3)/[facility] LABORATORY Eosinophils % 0.0 % [facility] Eosinophils Abs 0.0 0.0 - 0.4 [facility] x10(3)/[facility] LABORATORY Basophils % 0.2 % [facility] Basophils Abs 0.0 0.0 - 0.1 [facility] x10(3)/[facility] LABORATORY Immature Gran % 0.50 % [facility] [...] Organization Address City/State/[place] [address] (ABNORMAL) Hemogram (12/08/2021 6:02 PM EDT) Analysis Performed At Patho logist Time Signature WBC 15.6 (H) 4.0 - 9.5 [facility] x10(3)/[facility] LABORATORY RBC 4.05 (L) 4.58 - [facility] 5.54 [facility] x10(6)/[facility] LABORATORY Hemoglobin 11.8 (L) 13.7 - [facility] 16.5 g/dL [facility]OR[facility]ORY Hematocrit 35.8 (L) 40.5 - [facility] 48.5 % [facility]ORY MCV 88.4 82.9 - [facility] 93.1 [facility] LABORATORY MCH 29.1 27.5 - [facility] 32.1 pg [facility] MCHC 33.0 32.0 - [facility] 35.7 g/dL [facility] Platelets 178 145 - 357 [facility] x10(3)/[facility] LABORATORY RDWSD 49.3 (H) 36.0 - [facility] 45.0 [facility] LABORATORY RDWCV 15.1 (H) 11.4 - [facility] 13.8 % [facility] LABORATORY MPV 10.4 7.6 - 12.9 [facility] LABORATORY nRBC % Auto 0.0 % [facility] nRBC Abs Auto 0.000 0.000 - [facility] 0.000 [facility] x10(3)/[facility] LABORATORY Specimen Anatomical Collection Method Collection Time Receive d Time (Source) Location / / Volume Laterality Blood 12/08/2021 6:02 PM 2 6:36 EDT PM EDT Resulting Agency Comment Spec In Lab Morgan BROWN HEMATOLOGY ORDERABLES Performing Organization Address City/State/[place] [address] (ABNORMAL) Troponin (12/08/2021 6:02 PM EDT) P athologist Signature Troponin-T 0.89 (H) 0.00 - [facility] 0.00 ng/mL [facility] Comment: The 99th percentile for Troponin T is le ss than 0.01 ng/mL, any detectable cTnT concentration using this assay should be considered elevated. According to the third universal definit ion of myocardial infarction the following criteria with a clinical prese ntation consistent with acute myocardial ischemia meets the diagnosis for a myocardial infarction ([place]). Detection of a rise and/or fall of [...] sample may be indicated. Reference: Third [place] Definition of Myocardial Infarction. Journal of the [place] [employer] 2012;60:1581-98 Specimen Anatomical Collection Method Collection Time Receive d Time (Source) Location / / Volume Laterality Blood 12/08/2021 6:02 PM 6:36 EDT PM EDT Resulting Agency Comment Spec In Lab Iker Cuevas MD CHEMISTRY ORDERABLES Performing Organization Address City/State/[place] [address] COVID-19 PCR (12/08/2021 5:00 PM EDT) [facility] Method Time Signature SARS-CoV-2 Not Detected Not [...] of CO VID-19 is performed using the mobileoa COVID-19 Direct Assay by [employer] Alan marcum as authorized by the FDA [...] Pathology and Laboratory Medicine at [facility], certified under the Clinical Laboratory [...] fact sheets at the following FDA website: https://www.fda.gov/medical-devices/rbwkcelekxz-jdohtmn-8589-izgyx-41-kiwmxioon- mqt-ombnkpxoyidqan-midwjqq-devices/cxpsw-khkefxmybfy-rvzs SARS-CoV-2 Source LITHOGRAPHIC ETCHER Swab [facility] LABORATORY Specimen (Source) Anatomical Collection Method Collection Time Re ceived Time Location / / Volume Laterality Nasopharyngeal Swab 12/08/2021 5:00 12/08 PM EDT 6:03 PM EDT Comment: Symptoms->Surveillance Resulting Agency Comment Spec In Lab Iker Cuevas MD MICROBIOLOGY - GENERAL ORDER ROBSON Performing Organization Address City/[facility]/ZIP Code Phon e Number [place] [phone]OS[address] EKG 12 Lead (12/08/2021 4:40 PM EDT) Component Value Ref Range Test Analysis Performed Pathologis t Method Time At Signature Ventricular rate 78 BPM MUSE SYSTEM Atrial Rate 78 BPM MUSE SYSTEM P-R Interval 152 ms MUSE SYSTEM QRS Duration 96 ms MUSE SYSTEM Q-T Interval 396 ms MUSE SYSTEM QTC Calculated 451 ms MUSE SYSTEM (Bezet) Calculated P Pinson 44 degrees MUSE SYSTEM Calculated R Pinson -31 degrees MUSE SYSTEM Calculated T Pinson 124 degrees MUSE SYSTEM INTERPRETATION Normal sinus [...] Cuevas MD ECG ORDERABLES Performing Organization Address [facility]/ZIP Code Phon e Number MUSE SYSTEM (ABNORMAL) POCT Glucose (12/08/2021 4:34 PM EDT) P athologist Signature POC Glucose 400 (H) 65 - 199 [facility] mg/dL [facility] Comment: Supplemental ranges: <140 mg/dL before meals <180 mg/dL all other times of the day Specimen Anatomical Collection Method Collection Time Receive d Time (Source) Location / / Volume Laterality Blood 12/08/2021 4:34 PM 2 4:34 EDT PM EDT Iker Cuevas MD POINT OF CARE TEST ORDERABLE S Performing Organization Address City/[facility]/[place] [address] documented in this encounter [...] Coronary atherosclerosis of unspecified type of vessel, wales or graft Cardiomyopathy, ischemic Other specified forms [...] MEALS, First dose (after last modification) on [facility] 12/11/21 at 1730, Until Discontinued, MEAL [...] 12/12/2021 acetaminophen (Tylenol) tablet 650 mg 0805 ([facility] [...] Routine bisacodyL (Dulcolax) suppository 10 mg 0805 ([facility] Hold - Provider: Admin Adt - Reason: Transfer to a Procedural area)1230 ([facility] Unhold - Provider: Admin Adt) 10 mg, Rectal, DAILY PRN, Starting on Tu e 12/09/21 at 1629, Until Wed12/12/21 at 1312, Constipation, Routine dextrose 10% infusion(Linked Group 2) 0805 ([facility] [...] (Intra-Procedure), Routine niCARdipine (Cardene) (100 mcg/mL) dilution (ICER MACHINE) (CANCELED) 1030 (Given - Provider: Vitaliy Nobles [...] episode. & nbsp; For persistent hypoglycemia, con machine room operator longer-acting treatment for the duration of [...]
Routine documented in this encounter Care Teams Aquatic Ecologist Relationship Specialty Start Date End Date Lovely Vicente MD PCP - General 04/16/[address] [place] [address] [address] [facility] [address] [place] [address] documented as of this encounter
--- OUTSIDE RECORDS SUMMARY | 2022-02-23 08:52 | XMS_ITS | Encounter Summary ---
:1945 Author Organization [facility] [place] [address] Care Team Providers Name Role Phone Lovely Vicente MD Primary Care Provider Reason for Visit Reason Comments Follow-up Skin Check Encounter Details Date Type Department Care Team Description 01/06/2018 Office Visit Dermatology at [facility] ne[facility]; Abdelrahman HOOPER MD History of melanoma; [address] [facility] [place] [address] [facility] [place], [place] [address] Social History Tobacco Use Types [...] Cardiology Vitaliy Nobles MD [facility] [address] CARDIOLOGY [place], [place] [address] (Wo rk) documented as of this encounter Visit Diagnoses Diagnosis Multiple nevi Benign neoplasm of skin, site unspecifie d History of melanoma Personal history of malignant melanoma o f skin Seborrheic keratosis Other seborrheic keratosis documented in this encounter Care Teams Traffic Ii Manager Relationship Specialty Start Date End Date Lovely Vicente MD PCP - General 04/16/[address] [place] [address] documented as of this encounter
--- OUTSIDE RECORDS SUMMARY | 2022-02-23 08:52 | XMS_ITS | Encounter Summary ---
:1945 Author Organization [facility] Address [address] [address] Care Team Providers Name Role Phone Lovely Vicente MD Primary Care Provider Reason for Referral Diagnostic Test (Routine) - Closed Specialty Diagnoses / Procedures Referred By Contact Refer red To Contact Cardiology Diagnoses Chronic systolic heart failure Danette Maxwell APRN [facility] Non-Inv Card Lab Procedures Echocardiogram Transthoracic(Leb) [facility] [place] [address] [place] [address] Referral ID Status Reason Start Date Expiration Date Visits V isits Requested Authorized [id number] Closed Specialty 07/17/2019 09/14/2019 1 1 Service Requested Encounter Details Date Type Department Care Team Description 01/16/2019 Office Visit Cardiology at [facility] Danette Maxwell, Chronic systolic heart failu re; [facility] STACIE Cardiomyopathy, ischemic; Drive [facility] Hx of thyroid cancer; [place], [place] [address] [place] (arteriosclerotic heart disease); [phone] CARDIOLOGY MARIA VICTORIA (obstructive sleep apnea) on CPAP [phone] [place], [place] [address] (Wo rk) Social History Tobacco Use Types [...] K+ 4.6 today 6. Post-op atrial fibrillation [id number] (CHF, HTN, DM, vascular disease, thromboembolism) Amiodarone discontinued Continue coumadin INR managed by PCP. 2.1 today 7. PAD 08/06/2017: Right 1st, 2nd, 3rd toe amputation 08/11/2017: Left??femoral arterial access, RLE??angiogram, Balloon angioplasty of R PT with Eleazra 2.5 x 80 10/25/2017: right popliteal-pedal bypass [...] Nobles MD [facility] [place] [place], [place] [address] (Wo rk) documented as of this encounter Results ECHOCARDIOGRAM COMPLETE W CONTRAST (07/28/2019 8:19 AM EST) P athologist Signature EF 40 [employer] Specimen (Source) Anatomical Location Collection Method / Collectio n Time Received Time / Laterality Volume 07/28/2019 Narrative [facility] - 07/28/2019 8:38 AM EST Procedure: ?Transthoracic Echocardiogram Patient: ?NATALYA Mccollum ? (Age): 1945(74y) Med Rec#: ? [id number] ?Sex: ?M ? Site Loc: ? [facility] ?Ht / Wt: ??172(cm)/81(kg) Pt. Loc: ?Echo Lab ?BSA: ?1.94 Study Date: ?? 07/28/2019 ?Pt. Type: Outpatient Tape: ? Referring: MARY ELLEN Reading: Ifeanyi Truong () Machine Shop Apprentice: Fadumo Flanagan RDCS, FASE Diagnosis: *Chronic systolic [...] E-wave Vmax ?1 ?m/sec ? MV deceleration amak440.5 ? msec ? MV A-wave Vmax ?1 [...] ? Mid-Inferior ?Hypokinetic ? Mid-Inferoseptal ?Normal ? [place]-Septal ? Normal ? [place]-Anterior ? Hypokinetic ? [place]-Lateral ?Normal ? [place]-Inferior ? Akinetic ? [place]-Tip ?Hypokinetic ? This report has been electronically sign ed by: _ Ifeanyi Truong M.D. ? 07/28/2019 0 8:38:01 Images reviewed and interpretation verif ied [facility] Cardiac Ultrasound Laboratory Procedure Note Ifeanyi Truong MD - 07/28/2019Formatt ing of this note might be different from the original. Procedure: Transthoracic Echocardiogram Patient: NATALYA MCBRIDE(Age): [birth year]74y) Med Rec#: [id number] Sex: M Site Loc: [facility] Ht / Wt: 172(cm)/81(kg) Pt. Loc: Echo Lab BSA: 1.94 Study Date: 07/28/2019 Pt. Type: Outpati ent Tape: Referring: MARY ELLEN Reading: Ifeanyi Truong ([id number]) Machine Shop Apprentice: Fadumo Flanagan RDCS, FASE Diagnosis: *Chronic systolic [...] MV E-wave Vmax 1 m/sec MV deceleration sazg884.5 msec MV A-wave Vmax 1 m/sec MV [...] Normal Mid-Posterolateral Normal Mid-Inferior Hypokinetic Mid-Inferoseptal Normal [place]-Septal Normal [place]-Anterior Hypokinetic [place]-Lateral Normal [place]-Inferior Akinetic [place]-Tip Hypokinetic This report has been electronically sign ed by: _ Ifeanyi Truong M.D. 07/28/2019 08:38:0 1 Images reviewed and interpretation elvie hwang [facility] Cardiac Ultrasound Laboratory Danette Maxwell APRN ECHO ORDERABLES Performing Organization Address City/State/ZIP Code Phon e Number [facility] SYSTEM (ABNORMAL) Basic Metabolic Panel (non-fasting) (01/16/2019 7:49 AM EDT) P athologist Signature Glucose Lvl 105 65 - 199 [facility] mg/dL [facility] Comment: Diabetes: >=200 mg/dL plus symp toms BUN 25 (H) 10 - 20 mg/dL [facility]OR[facility]ORY Creatinine 1.08 0.80 - 1.50 mg/dL [facility] LABOR[facility] Sodium 145 135 - 145 mmol/L [facility] Potassium 4.7 3.5 - 5.0 mmol/L [facility] [...] Calcium 9.2 8.5 - 10.5 mg/dL [facility] Estimated GFR 68 >=60 mL/min/1.73 m?? [facility] Comment: The eGFR was calculated using the CKD-EP I equation. As with all creatinine based estimates of kidney function, eGFR values calculated with the CKD-EPI equation are not accurate in patients wi th acute kidney failure, extremes of body mass or the acutely ill. http://imedo/[facility] CITYnkf eGFR 79 >=60 mL/min/1.73 m?? [facility] Comment: The eGFR was calculated using the CKD-EP I equation. As with all creatinine based estimates of kidney function, eGFR values calculated with the CKD-EPI equation are not accurate in patients wi th acute kidney failure, extremes of body mass or the acutely ill. http://imedo/DHMCnkf Specimen Anatomical Collection Method Collection Time Receive d Time (Source) Location / / Volume Laterality Blood specimen 01/16/2019 7:49 AM 019 7:55 (specimen) EDT AM EDT Resulting Agency Comment Spec In Lab Danette Maxwell APRN CHEMISTRY ORDERABLES Performing Organization Address City/State/[place] [address] (ABNORMAL) pro-Brain Natriuretic Peptide [...] Organization Address City/State/[place] [address] documented in this encounter Visit Diagnoses Diagnosis Chronic systolic heart failure Cardiomyopathy, ischemic Other specified forms of chronic ischemi c heart disease Hx of thyroid cancer Personal history of malignant neoplasm o f thyroid ASHD (arteriosclerotic heart disease) Coronary atherosclerosis of unspecified type of vessel, [place] or graft MARIA VICTORIA (obstructive sleep apnea) on CPAP Obstructive sleep apnea (adult) (pediatr ic) Chronic systolic heart failure documented in this encounter Care Teams Dixonac Operator Relationship Specialty Start Date End Date Lovely Vicente MD PCP - General 04/16/[address] [place] [address] documented as of this encounter
--- OUTSIDE RECORDS SUMMARY | 2022-02-23 08:52 | XMS_ITS | Encounter Summary ---
:1945 Author Organization [place] [place] [address] Care Team Providers Name Role Phone Lovely Vicente MD Primary Care Provider Reason for Visit Reason Onset Date Comments Other 11/11/2017 Please call [facility] Encounter Details Date Type Department Care Team Description 11/11/2017 Telephone Cardiology at [facility] Danette Maxwell, Other (Please call [facility] PROVIDER RELATIONS CONSULTANT [facility] ) [place] [address] CARDIOLOGY [place], [place] [address] (Wo rk) Social History Tobacco [...] MD [facility] ER CARDIOLOGY [place], [place] [address] (Wo rk) documented as of this encounter Visit Diagnoses Not on filedocumented in this encounter Care Teams Emergency Medicine Nurse Practitioner Relationship Specialty Start Date End Date Lovely Vicente MD PCP - General 04/16/[address] [place] [address] documented as of this encounter
--- OUTSIDE RECORDS SUMMARY | 2022-02-23 08:52 | XMS_ITS | Encounter Summary ---
:1945 Author Organization [facility] [place] [address] Care Team Providers Name Role Phone Lovely Vicente MD Primary Care Provider Encounter Details Date Type Department Care Team Description 07/28/2019 Laboratory Appointment Lab 3L [facility] systolic [facility] [place] [id number] Social History Tobacco Use Types Packs/Day Years [...] Nobles MD [facility] ER CARDIOLOGY [place], [place] [address] (Wo rk) documented as of [...] athologist Signature ProBNP 647 (H) <=125 pg/mL [facility] LABOR[facility]ORY Specimen Anatomical Collection Method Collection Time Receive d Time (Source) Location / / Volume Laterality Blood specimen 07/28/2019 8:36 AM 020 8:46 (specimen) EST AM EST Resulting Agency Comment Spec In Lab Danette A Hans STACIE CHEMISTRY ORDERABLES Performing Organization Address City/State/ZIP [place] [address] (ABNORMAL) Basic Metabolic Panel (non-fasting) (07/28/2019 8:36 AM EST) athologist Signature Glucose Lvl 153 65 - 199 [facility] mg/dL [facility] Comment: Diabetes: >=200 mg/dL plus symp toms BUN 22 (H) 10 - 20 mg/dL [facility] Creatinine 1.05 0.80 - 1.50 [...] Anion Gap 12 5 - 15 mmol/L [facility] Calcium 9.3 8.5 - 10.5 mg/dL [facility] Estimated GFR 70 >=60 mL/min/1.73 m?? [facility] Comment: The eGFR was calculated using the CKD-EP I equation. As with all creatinine based estimates of kidney function, eGFR values calculated with the CKD-EPI equation are not accurate in patients wi th acute kidney failure, extremes of body mass or the acutely ill. http://[employer]/DHMCnkf eGFR 81 >=60 mL/min/1.73 m?? [facility] Comment: The eGFR was calculated using the CKD-EP I equation. As with all creatinine based estimates of kidney function, eGFR values calculated with the CKD-EPI equation are not accurate in patients wi th acute kidney failure, extremes of body mass or the acutely ill. http://[employer]/DHnkf Specimen Anatomical Collection Method Collection Time Receive d Time (Source) Location / / Volume Laterality Blood specimen 07/28/2019 8:36 AM 020 8:46 (specimen) EST AM EST Resulting Agency Comment Spec In Lab Danette Maxwell APRN CHEMISTRY ORDERABLES Performing Organization Address City/State/ZIP [place] [address] documented in this encounter Visit Diagnoses Diagnosis Chronic systolic heart failure documented in this encounter Care Teams Intermodal Customer Service Relationship Specialty Start Date End Date Lovely Vicente MD PCP - General 04/16/[address] [place] [address] documented as of this encounter
--- OUTSIDE RECORDS SUMMARY | 2022-02-23 08:52 | XMS_ITS | Encounter Summary ---
:1945 Author Organization [facility] [place] [address] Care Team Providers Name Role Phone Lovely Vicente MD Primary Care Provider Encounter Details Date Type Department Care Team Description 04/18/2018 Laboratory Appointment Lab 3L [facility] systolic [facility] [place] [id number] Social History Tobacco Use Types Packs/Day Years [...] Nobles MD [facility] ER CARDIOLOGY [place], [place] [address] (Wo rk) documented as of [...] Hepatic Function Panel (04/18/2018 9:19 AM EDT) [facility] Total Protein 7.6 6.1 - 8.0 KATALINA RYAN gm/dL [facility] Albumin 4.0 3.2 - 5.2 [employer] gm/dL [facility] AST 36 0 - 39 KATALINA RYAN unit/L [facility] ALT 27 0 - 55 KATALINA RYAN unit/L [facility] Alk Phos 96 40 - 120 [facility] RYAN unit/L [facility] Total 0.7 0.2 - 1.3 KATALINA [employer] Bilirubin mg/dL [facility] Bili, Direct 0.1 0.0 - 0.3 [facility] RYAN mg/dL [facility] Specimen Anatomical Collection Method Collection Time Receive d Time (Source) Location / / Volume Laterality Blood specimen Venous Draw / 04/18/2018 9:19 AM 2017 9:44 (specimen) Unknown EDT AM EDT Resulting Agency Comment Spec In Lab Danette Maxwell APRN CHEMISTRY ORDERABLES Performing Organization Address City/[facility]/[place] [address] TSH (04/18/2018 9:19 AM EDT) [facility] TSH 1.77 0.27 - 4.20 [facility] RYAN mlU/ML [facility] Specimen Anatomical Collection Method Collection Time Receive d Time (Source) Location / / Volume Laterality Blood specimen Venous Draw / 04/18/2018 9:19 AM 2017 9:44 (specimen) Unknown EDT AM EDT Resulting Agency Comment Spec In Lab Danette Maxwell APRN CHEMISTRY ORDERABLES Performing Organization Address City/[facility]/[place] [address] (ABNORMAL) Basic Metabolic Panel (non-fasting) (04/18/2018 9:19 AM EDT) P athologist Signature Glucose Lvl 167 65 - 199 [facility] mg/dL [facility] Comment: Diabetes: >=200 mg/dL plus symp toms BUN 18 10 - 20 mg/dL [facility] Creatinine 1.19 0.80 - 1.50 mg/dL [facility] Sodium 147 (H) 135 - 145 mmol/L [facility] [...] mg/dL [facility] Estimated GFR 61 >=60 mL/min/1.73 m?? [facility] Comment: The eGFR was calculated using the CKD-EP I equation. As with all creatinine based estimates of kidney function, eGFR values calculated with the CKD-EPI equation are not accurate in patients wi th acute kidney failure, extremes of body mass or the acutely ill. http://[employer]/[facility]STERnkf eGFR 70 >=60 mL/min/1.73 m?? [facility] Comment: The eGFR was calculated using the CKD-EP I equation. As with all creatinine based estimates of kidney function, eGFR values calculated with the CKD-EPI equation are not accurate in patients wi th acute kidney failure, extremes of body mass or the acutely ill. http://[employer]/[facility]STERnkf Specimen Anatomical Collection Method Collection Time Receive d Time (Source) Location / / Volume Laterality Blood specimen 04/18/2018 9:19 AM 018 9:34 (specimen) EDT AM EDT Resulting Agency Comment Spec In Lab Danette Maxwell STACIE CHEMISTRY ORDERABLES Performing Organization Address City/State/[place] [address] (ABNORMAL) pro-Brain Natriuretic Peptide (04/18/2018 9:19 AM EDT) P athologist Signature ProBNP 2,199 (H) <=125 [facility] pg/mL [facility] Specimen Anatomical Collection Method Collection Time Receive d Time (Source) Location / / Volume Laterality Blood specimen 04/18/2018 9:19 AM 018 9:34 (specimen) EDT AM EDT Resulting Agency Comment Spec In Lab Danette Gomes Hans STACIE CHEMISTRY ORDERABLES Performing Organization Address City/[facility]/[place] [address] documented in this encounter Visit Diagnoses Diagnosis Chronic systolic heart failure documented in this encounter Care Teams Sales Strategy Manager Relationship Specialty Start Date End Date Lovely Vicente MD PCP - General 04/16/[address] [place] [address] documented as of this encounter
--- OUTSIDE RECORDS SUMMARY | 2022-02-23 08:52 | XMS_ITS | Encounter Summary ---
:1945 Author Organization [facility] [place] [address] Care Team Providers Name Role Phone Lovely Vicente MD Primary Care Provider Reason for Visit Reason Onset Date Comments Other 03/24/2019 cardiac clearance ne eded Encounter Details Date Type Department Care Team Description 03/24/2019 Telephone Cardiology at [facility] Danette Maxwell, Other (cardiac [facility] SEWING MACHINIST clearance needed) [place] [address] CARDIOLOGY [place], [place] [address] (Wo rk) Social History Tobacco [...] AM EDT Leonela from [facility] [place] called requesting cardiac clearance for this patient who is to have a colonoscopy on 04/04/19. He is on anticoagulation and they will need to bridge him. Their phone # [phone], fax# [phone]. Thank you. documented in this encounter Plan of Treatment Upcoming Encounters Date Type Specialty Care Team Description 03/26/2022 Office Visit Cardiology Vitaliy Nobles MD [facility] ER CARDIOLOGY [place], [place] [address] (Wo rk) documented as of this encounter Visit Diagnoses Not on filedocumented in this encounter Care Teams Linemarker Relationship Specialty Start Date End Date Lovely Vicente MD PCP - General 04/16/[address] [place] [address] documented as of this encounter
--- OUTSIDE RECORDS SUMMARY | 2022-02-23 08:52 | XMS_ITS | Encounter Summary ---
:1945 Author Organization [facility] [place] [address] Care Team Providers Name Role Phone Lovely Vicente MD Primary Care Provider Encounter Details Date Type Department Care Team Description 02/19/2020 Telephone Dermatology at [facility] Ariana Wilder LPN [address] [place] [address] Social History Tobacco Use Types Packs/Day [...] MD [facility] ER CARDIOLOGY [place], [place] [address] (Wo rk) documented as of this encounter Visit Diagnoses Not on filedocumented in this encounter Care Teams Thermal Cutter Helper Relationship Specialty Start Date End Date Lovely Vicente MD PCP - General 04/16/[address] [place] [address] documented as of this encounter
--- OUTSIDE RECORDS SUMMARY | 2022-02-23 08:52 | XMS_ITS | Encounter Summary ---
:1945 Author Organization [facility] [place] [address] Care Team Providers Name Role Phone Lovely Vicente MD Primary Care Provider Encounter Details Date Type Department Care Team Description 03/20/2021 Ancillary Procedure Radiology Library [place] [address] [place] [address] [phone] Social History Tobacco Use Types Packs/Day Years [...] Cardiology Vitaliy Nobles MD [facility] CARDIOLOGY [place], [place] [address] (Wo rk) documented as [...] Organization Address City/State/ZIP Code Phon e Number [place], [place] documented in this encounter Visit Diagnoses Not on filedocumented in this encounter Care Teams Maintenance Porter Relationship Specialty Start Date End Date Lovley Vicetne MD PCP - General 04/16/[address] [place] [address] documented as of this encounter
--- OUTSIDE RECORDS SUMMARY | 2022-02-23 08:52 | XMS_ITS | Encounter Summary ---
:1945 Author Organization [facility] [place] [address] Care Team Providers Name Role Phone Lovely Vicente MD Primary Care Provider Encounter Details Date Type Department Care Team Description 12/07/2021 External [place] [address] Social History Tobacco Use Types Packs/Day [...] MD [facility] ER CARDIOLOGY [place], [place] [address] (Wo rk) documented as of [...] on filedocumented in this encounter Care Teams Ux Information Architect Relationship Specialty Start Date End Date Dobbertin, Lovely, MD PCP - General 04/16/[address] [place] [address] documented as of this encounter
--- OUTSIDE RECORDS SUMMARY | 2022-02-23 08:52 | XMS_ITS | Encounter Summary ---
:1945 Author Organization [facility] [place] [address] Care Team Providers Name Role Phone Lovely Vicente MD Primary Care Provider Encounter Details Date Type Department Care Team Description 03/20/2021 Ancillary Procedure Radiology Library [place] [address] [place] [address] [phone] Social History Tobacco Use Types Packs/Day Years [...] Vitaliy Nobles MD [facility] CARDIOLOGY [place], [place] [address] (Wo rk) documented as [...] Address City/State/ZIP Code Phon e Number [place], [place] documented in this encounter Visit Diagnoses Not on filedocumented in this encounter Care Teams Meat Selector Relationship Specialty Start Date End Date Lovely Vicente MD PCP - General 04/16/[address] [place] [address] documented as of this encounter
--- OUTSIDE RECORDS SUMMARY | 2022-02-23 08:52 | XMS_ITS | Encounter Summary ---
:1945 [place] [address] Care Team Providers Name Role Phone Lovely Vicente MD Primary Care Provider Encounter Details Date Type Department Care Team Description 08/15/2018 Laboratory Appointment Lab 3L [place] [address] Social History Tobacco Use Types Packs/Day [...] Nobles MD [facility] ER CARDIOLOGY [place], [place] [address] (Wo rk) documented as of this encounter Procedures Procedure Name Priority Date/Time Associated Diagnosis Comme nts PROTHROMBIN TIME Routine 08/15/2018 8:04 AM Resul ts for this EST procedure are i n the results section. documented in this encounter Results (ABNORMAL) Prothrombin Time (08/15/2018 8:04 AM EST) P athologist Signature PT 24.0 (H) 9.4 - 12.5 [facility] LABORATORY INR 2.1 [facility] [...] City/State/ZIP Code Phon e Number [place] [phone] documented in this encounter Visit Diagnoses Not on filedocumented in this encounter Care Teams Information Security Specialist Relationship Specialty Start Date End Date Lovely Vicente MD PCP - General 04/16/[address] [place] [address] documented as of this encounter
--- OUTSIDE RECORDS SUMMARY | 2022-02-23 08:52 | XMS_ITS | Encounter Summary ---
:1945 [place] [address] Care Team Providers Name Role Phone Lovely Vicente MD Primary Care Provider Encounter Details Date Type Department Care Team Description 03/20/2021 Telephone Neurology at [facility] Hugo Gaston MD [facility] [place] [address] [place] [address] [phone] (Wo rk) Social History Tobacco Use Types [...] - 03/20/2021 6:03 PM EDT Call from [facility]. 76 M with h/o DM. [...] Gaston MD Department of Neurology Pager # [phone] documented in this encounter Plan of Treatment Upcoming Encounters Date Type Specialty Care Team Description 03/26/2022 Office Visit Cardiology Vitaliy Nobles MD [facility] CARDIOLOGY [place], [place] [address] (Wo rk) documented as of this encounter Visit Diagnoses Not on filedocumented in this encounter Care Teams Radiator Repairer Relationship Specialty Start Date End Date Lovely Vicente MD PCP - General 04/16/[address] [place] [address] documented as of this encounter
--- OUTSIDE RECORDS SUMMARY | 2022-02-23 08:52 | XMS_ITS | Encounter Summary ---
:1945 Author Organization [place] [address] Care Team Providers Name Role Phone Lovely Vicente MD Primary Care Provider Encounter Details Date Type Department Care Team Description 03/20/2021 Ancillary Procedure Radiology Library [place] [address] [place] [address] [phone] Social History Tobacco Use Types Packs/Day Years [...] MD [facility] CARDIOLOGY [place], [place] [address] (Wo rk) documented as of [...] Address City/State/ZIP Code Phon e Number RAD [place], [place] documented in this encounter Visit Diagnoses Not on filedocumented in this encounter Care Teams Professional Athlete Relationship Specialty Start Date End Date Lovely Vicente MD PCP - General 04/16/[address] [place] [address] documented as of this encounter
--- OUTSIDE RECORDS SUMMARY | 2022-02-23 08:52 | XMS_ITS | Encounter Summary ---
:1945 [place] [address] Care Team Providers Name Role Phone Lovely Vicente MD Primary Care Provider Encounter Details Date Type Department Care Team Description 11/29/2017 Hospital Encounter Radiology Library at Estefany Maxwell Pain [facility] PROVIDER NETWORK MANAGER [facility] [place] [address] CARDIOLOGY [phone] [place], [place] [address] (Wo rk) Social History Tobacco [...] [facility] ER CARDIOLOGY [place], [place] [address] (Wo rk) documented as of [...] Address City/State/ZIP Code Phon e Number [place], [place] documented in this encounter Visit Diagnoses Diagnosis Pain Generalized pain documented in this encounter Care Teams Freight Elevator Erector Relationship Specialty Start Date End Date Lovely Vicente MD PCP - General 04/16/[address] [place] [address] documented as of this encounter
--- OUTSIDE RECORDS SUMMARY | 2022-02-23 08:52 | XMS_ITS | Encounter Summary ---
:1945 Author Organization [facility] [place] [address] Care Team Providers Name Role Phone Lovely Vicente MD Primary Care Provider Reason for Referral Diagnostic Test (Routine) - Closed Specialty Diagnoses / Procedures Referred By Contact Refer red To Contact Cardiology Diagnoses Chronic systolic heart failure Danette Maxwell APRN [facility] Non-Inv Card Lab Procedures Echocardiogram Transthoracic(Leb) [facility] [place] [address] [place] [address] Referral ID Status Reason Start Date Expiration Date Visits V isits Requested Authorized [id number] Closed Specialty 07/17/2019 09/14/2019 1 1 Service Requested Reason for Visit Diagnostic Test (Routine) - Closed Specialty Diagnoses / Procedures Referred By Contact Refer red To Contact Cardiology Diagnoses Chronic systolic heart failure Danette Maxwell APRN [facility] Non-Inv Card Lab Procedures Echocardiogram Transthoracic(Leb) [facility] [place] [address] [place] [address] Referral ID Status Reason Start Date Expiration Date Visits V isits Requested Authorized [id number] Closed Specialty 07/17/2019 09/14/2019 1 1 Service Requested Encounter Details Date Type Department Care Team Description 07/28/2019 Hospital Encounter Non-Invasive Chronic s ystolic [place] [address] Social History Tobacco Use Types Packs/Day [...] [facility] ER CARD[facility]OLOGY [place], [place] [address] (Wo rk) documented as of [...] Mccollum ? (Age): 1945(74y) Med Rec#: ? [id number] ?Sex: ?M ? Site Loc: ? [facility] ?Ht / Wt: ??172(cm)/81(kg) Pt. Loc: ?Echo Lab ?BSA: ?1.94 Study Date: ?? 07/28/2019 ?Pt. Type: Outpatient Tape: ? Referring: MARY ELLEN Reading: Ifeanyi Truong ([id number]) Waste Collector: Fadumo Flanagan RDCS, FASE Diagnosis: *Chronic systolic [...] E-wave Vmax ?1 ?m/sec ? MV deceleration oqhv580.5 ? msec ? MV A-wave Vmax ?1 [...] ? Pulmonic Valve/Qp:Qs ?Value ?Units (Range) ? [place] end-diastolic Vma1.1 ?m/sec ? Wall Motion: Segment Name ?Rest ? Base-Anteroseptal ?? Normal ? Base-Anterior ? Normal ? Base-Anterolateral ??Normal ? Base-Posterolateral Normal ? Base-Inferior ? Akinetic ? Base-Inferoseptal ?? Normal ? Mid-Anteroseptal ?Normal ? Mid-Anterior ?Hypokinetic ? Mid-Anterolateral ?? Normal ? Mid-Posterolateral ??Normal ? Mid-Inferior ?Hypokinetic ? Mid-Inferoseptal ?Normal ? [place]-Septal ? Normal ? [place]-Anterior ? Hypokinetic ? [place]-Lateral ?Normal ? [place]-Inferior ? Akinetic ? [place]-Tip ?Hypokinetic ? This report has been electronically sign ed by: _ Ifeaniy Truong M.D. ? 07/28/2019 0 8:38:01 Images reviewed and interpretation verif ied [facility] Cardiac Ultrasound Laboratory Procedure Note Ifeanyi Truong MD - 07/28/2019Formatt ing of this note might be different from the original. Procedure: Transthoracic Echocardiogram Patient: NATALYA MCBRIDE(Age): [birth year]74y) Med Rec#: [id number] Sex: M Site Loc: [facility] Ht / Wt: 172(cm)/81(kg) Pt. Loc: Echo Lab BSA: 1.94 Study Date: 07/28/2019 Pt. Type: Outpati ent Tape: Referring: MARY ELLEN Reading: Ifeanyi Truong ([id number]) Waste Collector: Fadumo Flanagan RDCS, FASE Diagnosis: *Chronic systolic [...] MV E-wave Vmax 1 m/sec MV deceleration vszs164.5 msec MV A-wave Vmax 1 m/sec MV [...] 0.7 ratio Pulmonic Valve/Qp:Qs Value Units (Range) [place] end-diastolic Vma1.1 m/sec Wall Motion: Segment Name Rest Base-Anteroseptal Normal Base-Anterior Normal Base-Anterolateral Normal Base-Posterolateral Normal Base-Inferior Akinetic Base-Inferoseptal Normal Mid-Anteroseptal Normal Mid-Anterior Hypokinetic Mid-Anterolateral Normal Mid-Posterolateral Normal Mid-Inferior Hypokinetic Mid-Inferoseptal Normal [place]-Septal Normal [place]-Anterior Hypokinetic [place]-Lateral Normal [place]-Inferior Akinetic [place]-Tip Hypokinetic This report has been electronically sign ed by: _ Ifeanyi Truong M.D. 07/28/2019 08:38:0 1 Images reviewed and interpretation verif ied [facility] Cardiac Ultrasound Laboratory Danette Maxwell [...] Routine documented in this encounter Care Teams Infertility Nurse Relationship Specialty Start Date End Date Lovely Vicente MD PCP - General 04/16/[address] [place] [address] documented as of this encounter
--- OUTSIDE RECORDS SUMMARY | 2022-02-23 08:52 | XMS_ITS | Encounter Summary ---
:1945 Author Organization [facility] [place] [address] Care Team Providers Name Role Phone Lovely Vicente MD Primary Care Provider Encounter Details Date Type Department Care Team Description 08/15/2018 Office Visit Cardiology at [facility] Danette Maxwell Chronic systolic heart failu re; [facility] A, PRESS SHOP SUPERVISOR Cardiomyopathy, ischemic; [facility] ASCVD (arteriosclerotic card iovascular disease); [place], [place] Essential hypertension; [phone] CARDIOLOGY MARIA VICTORIA on CPAP [phone] [place], [place] [address] Social History Tobacco Use Types [...] in this encounter Progress Notes Danette Maxwell, PRESS SHOP SUPERVISOR - 08/15/2018 9:00 AM EST Images from [...] is always better at therapy Call to [facility] PT Denies lightheadedness or dizziness Denies [...] K+ 4.6 today 6. Post-op atrial fibrillation [id number] (CHF, HTN, DM, vascular disease, thromboembolism) Amiodarone discontinued Continue coumadin INR managed by PCP. 2.1 today 7. PAD 08/06/2017: Right 1st, 2nd, 3rd toe amputation 08/11/2017: Left??femoral arterial access, RLE??angiogram, Balloon angioplasty of R PT with Eleazar 2.5 x 80 10/25/2017: right popliteal-pedal bypass at [facility] 8. Hypothyrodism S/p thyroidectomy for goiter Continue [...] Vitaliy Nobles MD [facility] [address] [place] [address] (Wo rk) documented as of this encounter Results Lipid Panel (08/15/2018 8:04 AM EST) P athologist Signature Chol, Total 75 mg/dL [facility] Comment: Lower Risk: <200 mg/dL Average Risk: 200-239 mg/dL Higher Risk: >ma=022 mg/dL Triglycerides 185 mg/dL [facility] Comment: Average Risk/Lower Risk: <150 mg/dL Borderline High Risk: 150-199 mg/dL High Risk: 200-499 mg/dL Very High Risk: >ao=572 mg/dL HDL 32 mg/dL [facility] Comment: Males: ?? Higher Risk: <40 mg/dL Females: ?? HIgher Risk: <50 mg/dL LDL Cholesterol 6 mg/dL [facility] Comment: Lowest Risk: <100 mg/dL Lower Risk: 100-129 mg/dL Borderline High Risk: 130-159 mg/dL High Risk: 160-189 mg/dL Very High Risk: >zo=787 mg/dL Chol/HDL Ratio 2.3 ratio [facility] Lipid Interpretation See Note [facility] Comment: Lipid management should be guided by a p atient? s ASCVD risk, goals and preferences. ACC/AHA Guidelines recommend high intens ity statin if clinical ASCVD or LDL greater than or equal to 190 mg/dL. http://Min[employer].InSequent/PXD-IYD-Lqpuwprlz Adults aged 40-75 with LDL 70-189 mg/dL should have their 10 year ASCVD risk estimated with the ACC/AHA ASCVD risk es timator http://tools.acc.org/XMZPR-Dzgy-Qrwlkevz r/ Statin should be discussed if risk [...] Organization Address City/State/[place] [address] (ABNORMAL) Basic Metabolic Panel (non-fasting) (08/15/2018 8:04 AM EST) P athologist Signature Glucose Lvl 116 65 - 199 [facility] mg/dL [facility] Comment: Diabetes: >=200 mg/dL plus symp toms BUN 21 (H) 10 - 20 mg/dL [facility] Creatinine 1.08 0.80 - 1.50 mg/dL [facility] Sodium 144 135 - 145 mmol/L [facility] Potassium 4.6 3.5 - 5.0 mmol/L [facility] Comment: Please note: ??Patients with WBC >100,00 0 may have falsely elevated Potassium levels. ??For accurate Potassium quantif ication in these patients send serum separator tube (gold top) for subsequent determinations. ??Contact the Clinical Chemistry Laboratory if there are any qu estions. Chloride 102 98 - 107 mmol/L [facility] CO2 27 22 - 31 mmol/L [facility] Anion Gap 15 5 - 15 mmol/L [facility] Calcium 9.0 8.5 - 10.5 mg/dL [facility] Estimated GFR 68 >=60 mL/min/1.73 m?? [facility] Comment: The eGFR was calculated using the CKD-EP I equation. As with all creatinine based estimates of kidney function, eGFR values calculated with the CKD-EPI equation are not accurate in patients wi th acute kidney failure, extremes of body mass or the acutely ill. http://Yohobuy/DHMCnkf eGFR 79 >=60 mL/min/1.73 m?? [facility] Comment: The eGFR was calculated using the CKD-EP I equation. As with all creatinine based estimates of kidney function, eGFR values calculated with the CKD-EPI equation are not accurate in patients wi th acute kidney failure, extremes of body mass or the acutely ill. http://Min[employer].InSequent/DHMCnkf Specimen Anatomical Collection Method Collection Time Receive d Time (Source) Location / / Volume Laterality Blood specimen 08/15/2018 8:04 AM 019 8:20 (specimen) EST AM EST Resulting Agency Comment Spec In Lab Danette Maxwell STACIE CHEMISTRY ORDERABLES Performing Organization Address City/[facility]/[place] [address] (ABNORMAL) pro-Brain Natriuretic Peptide (08/15/2018 8:04 AM EST) P athologist Signature ProBNP 1,797 (H) <=125 [facility] pg/mL [facility] Specimen Anatomical Collection Method Collection Time Receive d Time (Source) Location / / Volume Laterality Blood specimen 08/15/2018 8:04 AM 019 8:20 (specimen) EST AM EST Resulting Agency Comment Spec In Lab Danette A [place] STACIE CHEMISTRY ORDERABLES Performing Organization Address City/[facility]/[place] [address] documented in this encounter Visit Diagnoses Diagnosis Chronic systolic heart failure Cardiomyopathy, ischemic Other specified forms of chronic ischemi c heart disease ASCVD (arteriosclerotic cardiovascular d isease) Unspecified cardiovascular disease Essential hypertension Unspecified essential hypertension MARIA VICTORIA on CPAP Obstructive sleep apnea (adult) (pediatr ic) documented in this encounter Care Teams Volcanology Professor Relationship Specialty Start Date End Date Lovely Vicente MD PCP - General 04/16/[address] [place] [address] documented as of this encounter
--- OUTSIDE RECORDS SUMMARY | 2022-02-23 08:52 | XMS_ITS | Encounter Summary ---
:1945 Author Organization [facility] [place] [address] Care Team Providers Name Role Phone Lovely Vicente MD Primary Care Provider Encounter Details Date Type Department Care Team Description 08/26/2018 Transcribe Orders Laboratory Lovely Vicente, Deferred diagnosis [facility] MD on axis I Drive [address] [place] [address] [address] [id number] [place], [place] [phone] [address] Social History Tobacco Use Types Packs/Day Years [...] MD [facility] CARDIOLOGY [place], [place] [address] (Wo rk) documented as of this encounter Visit Diagnoses Diagnosis Deferred diagnosis on axis I Other unknown and unspecified cause of m orbidity or mortality documented in this encounter Care Teams Bottling Room Worker Relationship Specialty Start Date End Date Lovely Vicente MD PCP - General 04/16/[address] [place] [address] [address] [place] [address] documented as of this encounter
--- OUTSIDE RECORDS SUMMARY | 2022-02-23 08:52 | XMS_ITS | Encounter Summary ---
:1945 Author Organization [facility] [place] [address] Care Team Providers Name Role Phone Lovely Vicente MD Primary Care Provider Encounter Details Date Type Department Care Team Description 12/08/2021 External Results Non-Invasive Cardiology Lab Mar y None [facility] [place] [address] Social History Tobacco Use Types Packs/Day [...] Vitaliy Nobles MD [facility] ER CARDIOLOGY [place], [place] [address] (Wo rk) documented as of [...] on filedocumented in this encounter Care Teams Roll Line Operator Relationship Specialty Start Date End Date Lovely Vicente MD PCP - General 04/16/[address] [place] [address] [address] [facility] [address] [place] [address] documented as of this encounter
--- OUTSIDE RECORDS SUMMARY | 2022-02-23 08:52 | XMS_ITS | Encounter Summary ---
:1945 Author Organization [facility] [place] [address] Care Team Providers Name Role Phone Lovely Vicente MD Primary Care Provider Encounter Details Date Type Department Care Team Description 08/15/2018 Laboratory Lab 3L Barbara Chronic systoli c heart failure; Appointment [facility] ASCVD (ar teriosclerotic cardiovascular disease) [place] [address] Social History Tobacco Use Types [...] Vitaliy Nobles MD [facility] CARDIOLOGY [place], [place] [address] (Wo rk) documented as of [...] Signature Glucose Lvl 116 65 - 199 [facility] mg/dL [facility] Comment: Diabetes: >=200 mg/dL plus symp toms BUN 21 (H) 10 - 20 mg/dL [facility] Creatinine 1.08 0.80 - 1.50 mg/dL [facility] Sodium 144 135 - 145 mmol/L [facility] Potassium 4.6 3.5 - 5.0 mmol/L [facility] [...] LABORATORY Calcium 9.0 8.5 - 10.5 mg/dL [facility] Estimated GFR 68 >=60 mL/min/1.73 m?? [facility] Comment: The eGFR was calculated using the CKD-EP I equation. As with all creatinine based estimates of kidney function, eGFR values calculated with the CKD-EPI equation are not accurate in patients wi th acute kidney failure, extremes of body mass or the acutely ill. http://Pound Rockout Workout/DHMCnkf eGFR 79 >=60 mL/min/1.73 m?? [facility] Comment: The eGFR was calculated using the CKD-EP I equation. As with all creatinine based estimates of kidney function, eGFR values calculated with the CKD-EPI equation are not accurate in patients wi th acute kidney failure, extremes of body mass or the acutely ill. http://Pound Rock[employer] Workout/DHMCnkf Specimen Anatomical Collection Method Collection Time Receive d Time (Source) Location / / Volume Laterality Blood specimen 08/15/2018 8:04 AM 019 8:20 (specimen) EST AM EST Resulting Agency Comment Spec In Lab Danette Maxwell STACIE CHEMISTRY ORDERABLES Performing Organization Address City/State/[place] [address] Lipid Panel (08/15/2018 8:04 AM EST) athologist Signature Chol, Total 75 mg/dL [facility] Comment: Lower Risk: <200 mg/dL Average Risk: 200-239 mg/dL Higher Risk: >le=488 mg/dL Triglycerides 185 mg/dL [facility] Comment: Average Risk/Lower Risk: <150 mg/dL Borderline High Risk: 150-199 mg/dL High Risk: 200-499 mg/dL Very High Risk: >bg=422 mg/dL HDL 32 mg/dL [facility] Comment: Males: ?? Higher Risk: <40 mg/dL Females: ?? HIgher Risk: <50 mg/dL LDL Cholesterol 6 mg/dL [facility] Comment: Lowest Risk: <100 mg/dL Lower Risk: 100-129 mg/dL Borderline High Risk: 130-159 mg/dL High Risk: 160-189 mg/dL Very High Risk: >gz=014 mg/dL Chol/HDL Ratio 2.3 ratio [facility] Lipid Interpretation See Note [facility] Comment: Lipid management should be guided by a p atient? s ASCVD risk, goals and preferences. ACC/AHA Guidelines recommend high intens ity statin if clinical ASCVD or LDL greater than or equal to 190 mg/dL. http://Investing.comurl.com/ZTM-VEG-Hedouyebi Adults aged 40-75 with LDL 70-189 mg/dL should have their 10 year ASCVD risk estimated with the ACC/AHA ASCVD risk es timator http://tools.acc.org/UGRLT-Eagj-Cuhggzbb r/ Statin should be discussed if risk [...] Agency Comment Spec In Lab Danette A [facility] STACIE CHEMISTRY ORDERABLES Performing Organization Address City/[facility]/[place] [address] (ABNORMAL) pro-Brain Natriuretic Peptide (08/15/2018 8:04 AM EST) P athologist Signature ProBNP 1,797 (H) <=125 [facility] pg/mL [facility] Specimen Anatomical Collection Method Collection Time Receive d Time (Source) Location / / Volume Laterality Blood specimen 08/15/2018 8:04 AM 019 8:20 (specimen) EST AM EST Resulting Agency Comment Spec In Lab Danette Gomes Hans QUINONES CHEMISTRY ORDERABLES Performing Organization Address City/[facility]/ZIP [facility] [place] [address] documented in this encounter Visit Diagnoses Diagnosis Chronic systolic heart failure ASCVD (arteriosclerotic cardiovascular d isease) Unspecified cardiovascular disease documented in this encounter Care Teams Employee Operations Examiner Relationship Specialty Start Date End Date Lovely Vicente MD PCP - General 04/16/[address] [place] [address] documented as of this encounter
--- OUTSIDE RECORDS SUMMARY | 2022-02-23 08:52 | XMS_ITS | Encounter Summary ---
:1945 Author Organization [facility] [place] [address] Care Team Providers Name Role Phone Lovely Vicente MD Primary Care Provider Reason for Visit Reason Onset Date Comments Follow-up 07/13/2018 amiodarone discontin ued Encounter Details Date Type Department Care Team Description 07/13/2018 Telephone Cardiology at [facility] Martha Comer, Follow-up (amiodarone [facility] RN discontin ued) [place] [address] Social History Tobacco Use Types Packs/Day [...] RN - 07/13/2018 8:57 AM EST Per AUTOMATIC PACKER OPERATOR Hans call placed to the home number for the pt. confirmed that the pt is still taking the amiodarone. Pt is to stop the amiodarone. Pt taking it for post op a-fib, therapy was supposed to be for 30 days. Message given to his . She will give him the message and will have him call with any questions. Call placed to the [facility] pharmacy in [place] to discontinue it there as well. Med list updated. documented in this encounter Plan of Treatment Upcoming Encounters Date Type Specialty Care Team Description 03/26/2022 Office Visit Cardiology Vitaliy Nobles MD [facility] CARDIOLOGY [place], [place] [address] (Wo rk) documented as of this encounter Visit Diagnoses Not on filedocumented in this encounter Care Teams Law Tutor Relationship Specialty Start Date End Date Lovely Vicente MD PCP - General 04/16/[address] [place] [address] documented as of this encounter
--- OUTSIDE RECORDS SUMMARY | 2022-02-23 08:52 | XMS_ITS | Encounter Summary ---
:1945 Author Organization [facility] [place] [address] Care Team Providers Name Role Phone Lovely Vicente MD Primary Care Provider Encounter Details Date Type Department Care Team Description 11/07/2019 TH Visit Cardiology at [facility] Danette Maxwell (arteriosclerotic heart disease); (TeleHealth) [facility] STACIE Gomes Cardiomyopathy, ischemic; Drive [facility] S/P CABG x 3; [place], [place] MARIA VICTORIA (obstructive sleep apnea) on CPAP [phone] CARDIOLOGY [phone] [place], [place] [address] Social History Tobacco Use Types [...] regurgitation present. 07/07/2019 - 07/21/2019 Zio Patch Associate Brand Manager The patient had a minimum heart [...] at last check 6. Post-op atrial fibrillation [id number] (CHF, HTN, DM, vascular disease, thromboembolism) Amiodarone discontinued Continue coumadin INR managed by PCP 7. PAD 08/06/2017: Right 1st, 2nd, 3rd toe amputation 08/11/2017: Left??femoral arterial access, RLE??angiogram, Balloon angioplasty of R PT with Eleazar 2.5 x 80 10/25/2017: right popliteal[facility]ped[facility] bypass at [facility] Continue Coumadin 8. Hypothyrodism S/p thyroidectomy [...] Visit Cardiology Vitaliy Nobles MD [facility] ER CARDIOLOGY [place], [place] [address] (Wo rk) documented as of this encounter Visit Diagnoses Diagnosis ASHD (arteriosclerotic heart disease) Coronary atherosclerosis of unspecified type of vessel, [place] or graft Cardiomyopathy, ischemic Other specified forms of chronic ischemi c heart disease S/P CABG x 3 Postsurgical aortocoronary bypass status MARIA VICTORIA (obstructive sleep apnea) on CPAP Obstructive sleep apnea (adult) (pediatr ic) documented in this encounter Care Teams Insurance Application Investigator Relationship Specialty Start Date End Date Lovely Vicente MD PCP - General 04/16/[address] [place] [address] [address] [place] [address] documented as of this encounter
--- OUTSIDE RECORDS SUMMARY | 2022-02-23 08:52 | XMS_ITS | Encounter Summary ---
:1945 Author Organization [facility] [place] [address] Care Team Providers Name Role Phone Lovely Vicente MD Primary Care Provider Reason for Visit Reason Comments Establish Care Atrial Fibrillation Congestive Heart Failure Cardiomyopathy Encounter Details Date Type Department Care Team Description 09/06/2019 [facility] Ischemic cardiomyopathy Osvaldo STRANGE [address] [place], [place] CARDIOLOGY DEPT. [address] [place] [address] [phone] Social History Tobacco Use Types Packs/Day Years [...] today For any questions, call my office: [phone] To access your health care information, go to the web at: [email or web address] (you will need to register) For educational materials: [email or web address]_information.[email or web address] Karel TRAMMELL.[facility], Clinical Cardiac Electrophysiology, [facility], [facility] A Healthy Heart: After Your Visit Heart [...] least 2 servings of fish a week. Coral, mackerel, mcfadden, sardines, and chunk light tuna [...] irregular heartbeat. After you call 911, the dry pan operator may tell you to chew 1 [...] more? Visit our health information library at [email or web address]. You can also view health information on Ex[employer]ive, your personal patient account. Log in or sign up today. Enter F075 in the search box to learn more about A Healthy Heart: After Your Visit. ?? [id number] [employer]. documented in this encounter Progress Notes Karel Mcelroy MD - 09/06/2019 2:20 PM EST Images from the original note were not included. Section of Cardiology/Cardiac Electrophysiology [facility] Clinical Cardiac Electrophysiology Consult Patient ID Don Fatima 1945 [id number] Don Fatima is referred to the EP clinic by Danette Maxwell APRN PhD Chief Complaint Dyspnea on exertion Ischemic cardiomyopathy History This is a 74 y.o. male following up/being seen in clinic for evaluation for ongoing anticoagulation. He has a [id number] score of ~ 6-7. 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, can walk [...] on phone: None Gets together: None Attends lutheran service: None Active member of club or [...] reviewed the ECG: sinus rhythm, 72 bpm, WY 140 ms, QRS 100 ms, QT 400 [...] EP clinic KAREL MCELROY MD Cardiac Electrophysiology [facility] T: [phone] F: [phone] minutes of this 40 minute encounter were spent in counselling, as described above Cc: MD Danette Cr APRN PhD Janett Espino DPM documented in this encounter Plan of Treatment Upcoming Encounters Date Type Specialty Care Team Description 03/26/2022 Office Visit Cardiology Vitaliy Nobles MD [facility] ER DR CARDIOLOGY [place], [place] [address] (Wo rk) documented as of [...] 446 ms MUSE SYSTEM (Bezet) Calculated P [place] 37 degrees MUSE SYSTEM Calculated R [place] -23 degrees MUSE SYSTEM Calculated T [place] 116 degrees MUSE SYSTEM INTERPRETATION Normal sinus rhythm MUSE SYSTEM Inferior infarct (cited on or before 25-JAN-2013) ST & T wave abnormality, consider anterolateral ischemia Abnormal ECG When compared with ECG of 19-AUG-2017 10:23, No significant change was found Confirmed by MD Castellon Daniel ([id number]) on 09/08/2019 10:22:4 7 AM Specimen Anatomical [...] disease documented in this encounter Care Teams Hot Blaster Relationship Specialty Start Date End Date Lovely Vicente MD PCP - General 04/16/[address] [place] [address] documented as of this encounter
--- OUTSIDE RECORDS SUMMARY | 2022-02-23 08:52 | XMS_ITS | Encounter Summary ---
:1945 Author Organization [facility] [place] [address] Care Team Providers Name Role Phone Lovely Vicente MD Primary Care Provider Encounter Details Date Type Department Care Team Description 11/29/2017 Laboratory Lab 3L Barbara Wiseman systoli c congestive heart failure; Appointment [facility] ASCVD (ar teriosclerotic cardiovascular disease); Hospital Cardiomyopathy, [place] [address] Social History Tobacco Use Types [...] Nobles MD [facility] ER CARDI[facility]Y [facility]ENTER [place], [place] [address] (Wo rk) documented as of [...] Signature PT 23.0 (H) 9.4 - 12.5 [facility] LABORATORY INR 2.1 [facility] LABORATORY Comment: An INR [...] Organization Address City/State/[place] [address] (ABNORMAL) Basic Metabolic Panel (non-fasting) (11/29/2017 8:22 AM EDT) P athologist Signature Glucose Lvl 217 (H) 65 - 199 [facility] mg/dL [facility] LABORATORY Comment: Diabetes: >=200 mg/dL plus symp toms BUN 26 (H) 10 - 20 mg/dL [facility] LABORATORY Creatinine 0.96 0.80 [...] Chloride 97 (L) 98 - 107 mmol/L [facility] LABORATORY CO2 23 22 - 31 mmol/L [facility] LABORATORY Anion Gap 17 (H) 5 - 15 mmol/L [facility] LABORATORY Calcium 8.5 8.5 - 10.5 mg/dL [facility] LABORATORY Estimated GFR >60 >=60 [facility] LABORATORY Comment: The reported eGFR should be multiplied b y 1.2 for patients. The MDRD is not an appropriate measure o f renal function for patients with body mass extremes or in patients with acute kidney failure. http://Garden Mate/DHnkdep http://Garden Mate/DHMCnkf Specimen Anatomical Collection Method Collection Time Receive d Time (Source) Location / / Volume Laterality Blood specimen 11/29/2017 8:22 AM 018 8:29 (specimen) EDT AM EDT Resulting Agency Comment Spec In Lab Danette Maxwell APRN CHEMISTRY ORDERABLES Performing Organization Address City/[facility]/[place] [address] (ABNORMAL) pro-Brain Natriuretic Peptide (11/29/2017 8:22 AM EDT) P athologist Signature ProBNP 1,769 (H) <=125 [facility] RYAN pg/mL [facility] LABORATORY Specimen Anatomical Collection Method Collection Time Receive d Time (Source) Location / / Volume Laterality Blood specimen 11/29/2017 8:22 AM 018 8:29 (specimen) EDT AM EDT Resulting Agency Comment Spec In Lab Danette Maxwell APRN CHEMISTRY ORDERABLES Performing Organization Address City/State/[place] [address] Lavender Tube HOLD (11/29/2017 8:14 AM EDT) [facility] gist Method Time Signature Lavender Hold Sample in [facility] lab. [facility] LABORATORY Specimen Anatomical Collection Method Collection Time Receive d Time (Source) Location / / Volume Laterality Blood specimen No Charge / 11/29/2017 8:14 AM 018 8:29 (specimen) Unknown EDT AM EDT Lovely Vicente MD HEMATOLOGY ORDERABLES Performing Organization Address City/State/ZIP Code Phon e Number [place] [phone] documented in this encounter Visit Diagnoses Diagnosis Chronic systolic congestive heart failur e Chronic systolic heart failure ASCVD (arteriosclerotic cardiovascular d isease) Unspecified cardiovascular disease Cardiomyopathy, ischemic Other specified forms of chronic ischemi c heart disease documented in this encounter Care Teams Linux Server Engineer Relationship Specialty Start Date End Date Lovely Vicente MD PCP - General 04/16/[address] [place] [address] documented as of this encounter
--- OUTSIDE RECORDS SUMMARY | 2022-02-23 08:52 | XMS_ITS | Encounter Summary ---
:1945 Author Organization [facility] [place] [address] Care Team Providers Name Role Phone Lovely Vicente MD Primary Care Provider Encounter Details Date Type Department Care Team Description 01/16/2019 Laboratory Appointment Lab 3L [facility] systolic [facility] [place] [id number] Social History Tobacco Use Types Packs/Day Years [...] MD [facility] ER CARDIOLOGY [place], [place] [address] (Wo rk) documented as [...] athologist Signature ProBNP 780 (H) <=125 pg/mL [facility] LABORATORY Specimen Anatomical Collection Method Collection Time Receive d Time (Source) Location / / Volume Laterality Blood specimen 01/16/2019 7:49 AM 019 7:55 (specimen) EDT AM EDT Resulting Agency Comment Spec In Lab Danette A Hans STCAIE CHEMISTRY ORDERABLES Performing Organization Address City/State/[place] [address] (ABNORMAL) Basic Metabolic Panel (non-fasting) (01/16/2019 7:49 AM EDT) athologist Signature Glucose Lvl 105 65 - [address] [facility] mg/dL [facility] LABORATORY Comment: Diabetes: >=200 mg/dL plus symp toms BUN 25 (H) 10 - 20 mg/dL [facility] LABORATORY Creatinine 1.08 0.80 - 1.50 mg/dL [facility] LABORATORY Sodium 145 135 - 145 mmol/L [facility] LABORATORY Potassium 4.7 3.5 - 5.0 mmol/L [facility] LABORATORY Calcium 9.2 8.5 - 10.5 mg/dL [facility] LABORATORY Estimated GFR 68 >=60 mL/min/1.73 m?? [facility] LAB[facility] Comment: The eGFR was calculated using the CKD-EP I equation. As with all creatinine based estimates of kidney function, eGFR values calculated with the CKD-EPI equation are not accurate in patients wi th acute kidney failure, extremes of body mass or the acutely ill. http://Eat/[facility] TULSAnkf eGFR 79 >=60 mL/min/1.73 m?? [facility] LAB[facility] Comment: The eGFR was calculated using the CKD-EP I equation. As with all creatinine based estimates of kidney function, eGFR values calculated with the CKD-EPI equation are not accurate in patients wi th acute kidney failure, extremes of body mass or the acutely ill. http://Eat/[facility] TULSAnkf Specimen Anatomical Collection Method Collection Time Receive d Time (Source) Location / / Volume Laterality Blood specimen 01/16/2019 7:49 AM 019 7:55 (specimen) EDT AM EDT Resulting Agency Comment Spec In Lab Danette Maxwell APRN CHEMISTRY ORDERABLES Performing Organization Address City/State/[place] [address] documented in this encounter Visit Diagnoses Diagnosis Chronic systolic heart failure documented in this encounter Care Teams Public Aid Eligibility Assistant Relationship Specialty Start Date End Date Lovely Vicente MD PCP - General 04/16/[address] [place] [address] documented as of this encounter
--- OUTSIDE RECORDS SUMMARY | 2022-02-23 08:52 | XMS_ITS | Encounter Summary ---
:1945 [place] [address] Care Team Providers Name Role Phone Lovely Vicente MD Primary Care Provider Reason for Visit Reason Comments Skin Cancer Examination Encounter Details Date Type Department Care Team Description 03/20/2021 Office Visit Dermatology at [facility] Brennen Rene MD History of melanoma; [facility] History of dysplastic nevus; [address] Multiple benign nevi; [place] [address] [facility] [place] (seborrheic keratosis); [phone]-DERMATOLOGY [place] (actinic keratosis) [place], [place] [address] Social History Tobacco Use Types [...] no SOCIAL HISTORY 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 Last visit at [facility] Derm: 01/02/2020 Medications: Reviewed in eD-H [...] FSE; history of Melanoma []Note routed to rn rehab [x]Recall has been placed in scheduling system []Appointment scheduled at checkout Scribe attestation: Yoana Pang LPN has performed the documentation for this encounter in the presence of and acting as a scribe for LAURA RENE MD I performed the above scribed service and agree with the accuracy of the documentation in this encounter. Reviewed and signed by: LAURA RENE MD Dermatology [facility] documented in this encounter Plan of Treatment Upcoming Encounters Date Type Specialty Care Team Description 03/26/2022 Office Visit Cardiology Vitaliy Nobles MD [facility] CARDIOLOGY [place], [place] [address] (Wo rk) documented as [...] keratosis documented in this encounter Care Teams Anthropological Linguist Relationship Specialty Start Date End Date Lovely Vicente MD PCP - General 04/16/[address] [place] [address] documented as of this encounter
--- OUTSIDE RECORDS SUMMARY | 2022-02-23 08:52 | XMS_ITS | Encounter Summary ---
:1945 Author Organization [facility] [place] [address] Care Team Providers Name Role Phone Lovely Vicente MD Primary Care Provider Reason for Visit Reason Comments Skin Check Encounter Details Date Type Department Care Team Description 07/06/2018 Office Visit Dermatology at [facility], Rigoberto Yarbrough (actinic keratosis); MD SHAY Quick III (seborrheic keratosis); [address] [facility] History of melanoma; [place] [address] Skin exam for malignant neoplasm [phone] [facility]-DERMATOL[facility] [place], [place] [address] Social History Tobacco Use Types [...] leg - he had vascular surgery in [facility] while he lost several toes, [...] encounter. Rigoberto Garcia MD Section of Dermatology [facility] documented in this encounter Plan of Treatment Upcoming Encounters Date Type Specialty Care Team Description 03/26/2022 Office Visit Cardiology Vitaliy Nobles MD [facility] ER DR CARDIOLOGY [place] [address] (Wo rk) documented as of this encounter Visit Diagnoses Diagnosis [place] (actinic keratosis) Actinic keratosis [place] (seborrheic keratosis) Other seborrheic keratosis History of melanoma Personal history of malignant melanoma o f skin Skin exam for malignant neoplasm Screening for malignant neoplasm of the skin documented in this encounter Care Teams Handle Finisher Relationship Specialty Start Date End Date Lovely Vicente MD PCP - General 04/16/[address] [place] [address] [address] [place] [address] documented as of this encounter
--- OUTSIDE RECORDS SUMMARY | 2022-02-23 08:52 | XMS_ITS | Encounter Summary ---
:1945 Author Organization [facility] [place] [address] Care Team Providers Name Role Phone Lovely Vicente MD Primary Care Provider Encounter Details Date Type Department Care Team Description 11/29/2017 Hospital Encounter Vascular Lab at [facility] P[facility] (peripheral [facility], RVT artery [facility]) [place] [phone] Social History Tobacco Use Types Packs/Day Years [...] Nobles MD [facility] [place], [place] [address] (Wo rk) documented as of [...] Department: Vascular Surgery Lab VASCUBASE Report Patient: [id number] (DON HOANG) CPT: 53999 ICD10: I72.4;I73.9 Referring Physician: DANETTE MAXWELL ?? [...] lab da tabase for comparison. Notification: Danette bunhc APRN was informed of these preliminary findings, [...] unspecified documented in this encounter Care Teams Project Engineering Manager Relationship Specialty Start Date End Date Lovely Vicente MD PCP - General 04/16/[address] [facility] [place] [address] documented as of this encounter
--- OUTSIDE RECORDS SUMMARY | 2022-02-23 08:52 | XMS_ITS | Encounter Summary ---
:1945 [place] [address] Care Team Providers Name Role Phone Lovely Vicente MD Primary Care Provider Encounter Details Date Type Department Care Team Description 07/12/2019 Office Visit Dermatology at [facility], Rigoberto Yarbrough (actinic keratosis); MD SHAY Quick III (seborrheic keratosis); [address] [facility] Multiple benign nevi; [place] [address] History of melanoma [phone] [facility] [place], [place] [address] Social History Tobacco Use Types [...] encounter. Rigoberto Garcia MD Section of Dermatology [facility] documented in this encounter Plan of Treatment Upcoming Encounters Date Type Specialty Care Team Description 03/26/2022 Office Visit Cardiology Vitaliy Nobles MD [facility] ER CARDIOLOGY [place], [place] [address] (Wo rk) documented as of this encounter Visit Diagnoses Diagnosis [place] (actinic keratosis) Actinic keratosis [place] (seborrheic keratosis) Other seborrheic keratosis Multiple benign nevi Benign neoplasm of skin, site unspecifie d History of melanoma Personal history of malignant melanoma o f skin documented in this encounter Care Teams Corporate Accountant Relationship Specialty Start Date End Date Lovely Vicente MD PCP - General 04/16/[address] [place] [address] documented as of this encounter
--- OUTSIDE RECORDS SUMMARY | 2022-02-23 08:52 | XMS_ITS | Encounter Summary ---
:1945 Author Organization [facility] [place] [address] Care Team Providers Name Role Phone Lovely Vicente MD Primary Care Provider Reason for Visit Auth/Cert Specialty Diagnoses / Procedures Referred By Contact Refer red To Contact Diagnoses NSTEMI Procedures emerg ipi Referral ID Status Reason Start Date Expiration Date Visits Requ ested Visits Authorized [id number] 1 1 Encounter Details Date Type Department Care Team Description 12/10/2021 Surgery Microsoft Office Instructor Asa Coulter MD CARDIAC CATHETERIZATION [facility] DR Sidd[place] [address] [place] [address] [phone] (Wo rk) Social History Tobacco Use Types [...] Don Fatima Patient Age: 76 y.o. Language: Colombian Race: White Ethnicity: Not nor Admit date: [...] Peter PA-C Kelly LaFlamme PA-C Cardiovascular Medicine [phone] Discharge Diagnoses (Hospital Problems) and Secondary Diagnoses [...] 3.75 guiding catheter and a 3.5 Fr [place] [facility] [place] 20 Mhz using Manual pullback. Imaging was successful. Image quality was good. The ostial LCX showed moderate diffuse atherosclerotic plaque with scattered three quadrant calcification. Measurements were performed after pre-dilation. Post Intervention: The stent was well expanded and apposed. Intravascular Ultrasound was performed in the distal LM using a 7 Fr EBU 3.75 guiding catheter and a 3.5 Fr [place] [facility] [place] 20 Mhz using Manual pullback. Imaging was successful. Image quality was good. The distal LM showed moderate diffuse atherosclerotic plaque. Post Intervention: The stent was well expanded and apposed. Indication for Intervention: Coronary intervention was indicated for primary therapy for an acute myocardial infarction. The priority for the procedure was Urgent. The [facility] indication for the procedure was [...] may require modification of this regimen. Consult [facility] Interventional Cardiology for questions. The 1 year [...] vascular congestion and cardiomegaly. ?? TTE from [facility] 12/08/21 ? Prior Cardiac Studies: [...] prior thyroidectomy in 2012 who presented to [facility] with 1 week progressing breathlessness [...] 03/2021 with Liz Poole PA-C. ?? At [facility], respiratory distress with hypoxia 86% [...] and diet drinks did not cause his MO. This is what his thought was the [...] appointments: During 8am-5pm Wednesday through Wednesday call [phone] to speak with a nurse in the cardiology clinic All other times call [phone] and ask to speak to the mica inspector pickling solution maker. Return to work: One week Driving: No driving for 48 hours after catheterization. Follow up Appointments: PCP Lovely Vicente MD [phone] to see patient at the end of December for annual check up. Patient to see Dr. Lorenzana at 1120 am at December 19 for a post hospital check up. Disc Pad Plate Filler Dr. De Oliveira to see you in [facility]. Left a message for office to set a date and time. Please call [phone] Nobles to see the patient for a same day cath in 2-3 weeks from now. Office to call with a date and time. For questions please call [phone] Home oxygen therapy: N/A Arrangements for VNA/home care: none Future Appointments and Orders Future Orders Complete By Expires Basic Metabolic Panel (non-fasting) [LAB15 Custom] 12/19/2021 (Approximate) 12/12/2022 Process Instructions: INCLUDES: Calcium, BUN, Creat, GFR, Glucose, Lytes Scheduling Instructions: Comments: Questions: Referral to Cardiac Rehab [[id number] Custom] As directed Process Instructions: If no [...] appointments: During 8am-5pm Wednesday through Wednesday call [phone] to speak with a nurse in the cardiology clinic All other times call [phone] and ask to speak to the mica inspector pickling solution maker. Return to work: One week Driving: No driving for 48 hours after catheterization. Follow up Appointments: PCP Lovely Vicente MD [phone] to see patient at the end of December for annual check up. Patient to see Dr. Lorenzana at 1120 am at December 19 for a post hospital check up. Disc Pad Plate Filler Dr. De Oliveira to see you in [facility]. Left a message for office to set a date and time. Please call [phone] Nobles to see the patient for a same day cath in 2-3 weeks from now. Office to call with a date and time. For questions please call [phone] Home oxygen therapy: N/A Arrangements for VNA/home [...] acetaminophen Take 2 tablets by 0 11/02/2017 070 01/2022 (TYLENOL) 650 mg mouth as needed. 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 Tolerated procedure well. Home today [...] TROPONINT 1.13* 0.92* 0.89* Pertinent Radiographic/Diagnostic Results: R/[facility] 12/10/21 Hemodynamics: Right Heart Pressures Resting: [...] pulmonary vascular congestion and cardiomegaly. 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 Known CAD with hx of MO and CABG. DM. MARIA VICTORIA.ICM. ??? ASHD [...] was given Lasix 80mg IV x1 in lab technician. Tolerated procedure well. Review of [...] Intake/Output Summary (Last 24 hours) at 12/11/2021 0948 Last data filed at 12/11/2021 0508 Gross [...] pulmonary vascular congestion and cardiomegaly. TTE from [facility] 12/08/21 Prior Cardiac Studies: TTE [...] and answered his questions. Iker Cuevas MD [facility] Total time spent on review of records prior to visit, face to face time with patient during visit, documentation, and coordination of care with other clinicians: 25 minutes. . Iker Cuevas MD - 12/10/2021 12:30 PM EDT Images from the original note were not included. 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 Admitted with 2 days of sob, hypoxemia, and + trop. Known CAD with hx of MO and CABG. DM. MARIA VICTORIA.ICM. ??? ASHD [...] was given Lasix 80mg IV x1 in lab technician. Tolerated procedure well. Review of [...] TROPONINT 1.13* 0.92* 0.89* Pertinent Radiographic/Diagnostic Results: R/[facility] 12/10/21 Hemodynamics: Right Heart Pressures Resting: [...] pulmonary vascular congestion and cardiomegaly. TTE from [facility] 12/08/21 Prior Cardiac Studies: TTE [...] Discussed with MD Migdalia Peter PA-C Pager #[phone] 12/10/2021 Cardiology Attending Note I have seen [...] updated and given pictures. Iker Cuevas MD [facility] Total time spent on review of records prior to visit, face to face time with patient during visit, documentation, and coordination of care with other clinicians: 35 minutes. Iker Cuevas MD - 12/09/2021 7:28 AM EDT Images from the original note were not included. 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 Admitted with 2 days of sob, hypoxemia, and + trop. Known CAD with hx of MO and CABG. DM. MARIA VICTORIA.ICM. ??? ASHD [...] pulmonary vascular congestion and cardiomegaly. TTE from [facility] 12/08/21 Prior Cardiac Studies: TTE [...] Discussed with MD Migdalia Peter PA-C Pager #[phone] 12/09/2021 Cardiology Attending Note I have seen and examined the patient. I agree with the findings above. Developed CHF early this am despite getting more iv lasix last evening. Feeling better now. INR > 2. Lungs still wet at base. Echo at [facility] showed EF 35% with mild mod MR slightly lower than last value here. -vit K 2.5 orally to facilitate correction of INR- this will take 12-24 hours to take effect -furosemide 80 mg iv now -postpone right and left heart cath until tomorrow given INR and ADHF -increase statin to achieve LDL < 70 -CPAP tonight Iker Cuevas MD [facility] Total time spent on review of records [...] + trop. Known CAD with hx of MO and CABG. DM. MARIA VICTORIA.ICM. ??? ASHD (arteriosclerotic heart disease) ??? Cardiomyopathy, ischemic ??? Non-ST elevation myocardial infarction (NSTEMI) ??? Acute HFrEF (heart failure with reduced ejection fraction) Resolved Hospital Problems No resolved problems to display. History of Present Illness: Dno Fatima is a 76 y.o. male with history of CAD status post three-vessel CABG (THOMPSON-LAD, sequential SVG-OM1-D1) 07/07/2017 following late STEMI, ischemic cardiomyopathy with LVEF 40-45%, paroxysmal atrial fibrillation on outpatient warfarin, IDDM2, CKD III, hypertension, dyslipidemia, COPD, MARIA VICTORIA,right metatarsal amputation 08/09/2017, and hypothyroidism prior thyroidectomy in 2012 who presented to [facility] with 1 week progressing breathlessness [...] visit 03/2021 with Liz Poole PA-C. At [facility], respiratory distress with hypoxia 86% [...] SETUP performed by Manny Mcknight MD at [facility] MAIN OR ??? PRO AMPUTATION FOOT, TRANSMETATARSAL Right 08/09/2017 AMPUTATION, TRANSMETATARSAL (WRVU 12.71) performed by Yonathan Smith MD at [facility] MAIN OR ??? PRO CABG, ARTERIAL, SINGLE N/A 07/07/2017 @CABG, USING ARTERIAL GRAFT;SINGLE ARTERIAL GRAFT (WRVU 33.75) performed by Yuan Retana MD at [facility] MAIN OR ??? PRO CABG, ARTERY-VEIN, TWO N/A 07/07/2017 @CABG, TWO VENOUS GRAFTS & ARTERIAL GRAFT (WRVU 7.93) performed by Yuan Retana MD at [facility] MAIN OR ??? PRO COLONOSCOPY, REMV LESN, SNARE 01/16/2014 COLONOSCOPY, POLYPECTOMY, REMOVAL LESION BY SNARE performed by Nohemi Jaimes MD at [facility] ENDOSCOPY ??? PRO DRESSING CHANGE UNDER ANESTHESIA Right 08/11/2017 (MSURG) DRESSING CHANGE (FOR OTHER THAN IVAN) UNDER ANES. (WRVU 0.86) performed by Lamar Smith MD at [facility] MAIN OR ??? PRO ENDOSCOPY W/VIDEO-ASST VEIN HARVEST, CABG Right 07/07/2017 ENDOSCOPIC HARVEST VEIN(S) FOR CABG (WRVU 0.31) performed by Yuan Retana MD at [facility] MAIN OR ??? PRO THYROIDECTOMY 03/28/2013 THYROIDECTOMY, TOTAL OR COMPLETE performed by Manny Mcknight MD at [facility] MAIN OR Significant Family History: [...] (H) 65 - 199 mg/dL Labs at [facility] 12/08/2021-troponin I 8004 (UN L [...] Monitor for ADRs. Trend troponins. Admission EKG. [facility] 12/09; consented. TTE. Telemetry monitoring, daily [...] code #Diet-carb control; n.p.o. after midnight for [facility] #DVT prophy- heparin infusion #GI prophy- PPI Discussed with MD Morgan Peter PA-C APP2 pager [phone] 12/08/2021 Cardiology Attending Note I have seen [...] is type 1 due to graft or [place] coronary stenosis vs acute injury from CHF. 3. PAF: currrently in NSR. Have replaced warfarin with heparin 4. PAD: stable 5. DM: stable 6. CKD: will monitor and minimize contrast. Pt very appreciative of Dr. Yuan Retana's care in 2018. Will let him know patient is here. Iker Cuevas MD [facility] documented in this encounter Miscellaneous Notes [...] Type: *No Product type* / Secondary Insurance: Get[employer] [place] Prescription Coverage: Yes This plan was [...] cath without complications. Migdalia Parker PA-C Pager #[phone] 12/10/2021 Initial Assessments - Nick Georges RN [...] COVID test: Lab Results Component Value Date [id number] Not Detected 12/08/2021 Past medical History: Past [...] spouse would be surrogate decision maker per [place] surrogate decision making law. (Only good for 180 days) Any patient receiving care at [facility] must abide by [place] law. The hierarchy for surrogate decision making [...] (i) The agent with financial power of defense attorney or a conservator appointed in accordance [...] - standard, cane - straight Home Address: [address] [place] [address] [place] [address] Social & Family Supports: All names listed below confirmed with patient as current and correct Extended Emergency Contact Information Primary Emergency Contact: Kisha Fatima Address: [address] [place] [address] [place] [address] [facility] Mobile Relation: Spouse Secondary Emergency Contact: Elba Swenson Address: [address] Mobile Relation: Child Current Care Provided [...] [facility] Prescription Coverage: Yes Preferred Pharmacy: [facility] [id number] [id number] - [place], [place] - [address] [address] Status: Patient is a : unable to assess Primary Care Provider: Lovely Vicente MD [phone] Patient/Caregiver Goals of Treatment: Get out of here Potential Needs for Transition of Care: none Agency Referrals: none patient has used [facility] in the past Transportation: no concerns Transportation Anticipated: family or friend will provide Concerns to be Addressed: patient refuses services, discharge planning Assessment: Patient is admitted to [facility] Service pager [phone] for 76 y.o.??male??with h/o??CAD s/p 3vCABG (THOMPSON-LAD, [...] status on current unit. Nick Georges RN deburrer machine, Office of Care Management Pager: [phone] Brief Op Note - Vitaliy Nobles MD - 12/10/2021 8:31 AM EDT Images from the original note were not included. [facility] 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 Diabetes History: Don Fatima has had diabetes for 10 years. He has been on insulin for the last several years andis managed by his PCP. Lives in [place], [place] with his . States that he [...] your patient Desirae Jett APRN Endocrinology Pager [phone] 70 minutes of this 80 minute visit [...] + trop. Known CAD with hx of MO and CABG. DM. MARIA VICTORIA.ICM. ??? ASHD [...] for further details. STEPHANIE Rebolledo 12/08/2021 Pager [phone] documented in this encounter Plan of Treatment Upcoming Encounters Date Type Specialty Care Team Description 03/26/2022 Office Visit Cardiology Vitaliy Nobles MD [facility] DR CARDIOLOGY [place], [place] [address] (Wo rk) Scheduled Referrals Name [...] POCT Glucose (12/12/2021 7:42 AM EDT) athologist [facility] POC Glucose 215 (H) 65 - 199 [facility] mg/dL [facility]ORY Comment: Supplemental ranges: <140 mg/dL before meals <180 mg/dL all other times of the day Specimen Anatomical Collection Method Collection Time Receive d Time (Source) Location / / Volume Laterality Blood 12/12/2021 7:42 AM 7:42 EDT AM EDT Ifeanyi Truong MD POINT OF CARE TEST ORDERABLE S Performing Organization Address City/State/[place] [address] (ABNORMAL) Differential, Automated (12/12/2021 4:51 AM EDT) athologist Signature Neutrophils % 75.4 % [facility]ORATORY Neutr Abs (ANC) 5.95 1.70 - [facility] 6.10 [facility] x10(3)/[facility] LABORATORY Lymphocytes % 12.2 % [facility] Lymphocytes Abs 1.0 0.9 - 3.2 [facility] x10(3)/[facility] LABORATORY Monocytes % 9.5 % [facility]ORY Monocyte Abs 0.8 0.3 - 0.9 [facility] x10(3)/[facility] LABORATORY Eosinophils % 1.8 % [facility] Eosinophils Abs 0.1 0.0 - 0.4 [facility] x10(3)/[facility] LABORATORY Basophils % 0.5 % [facility] Basophils Abs 0.0 0.0 - 0.1 [facility] x10(3)/[facility] LABORATORY Immature Gran % 0.60 [...] 0.00 - 0.04 x10(3)/[facility] LABORATORY Specimen Anatomical Collection Method Collection Time Receive d Time (Source) Location / / Volume Laterality Blood 12/12/2021 4:51 AM 2 5:06 EDT AM EDT Resulting Agency Comment Spec In Lab Bijan Sun MD HEMATOLOGY ORDERABLES Performing Organization Address City/State/[place] [address] (ABNORMAL) Hemogram (12/12/2021 4:51 AM EDT) Analysis Performed At Patho logist Time Signature WBC 7.9 4.0 - 9.5 [facility] x10(3)/[facility] LABORATORY RBC 4.19 (L) 4.58 - [facility] 5.54 [facility] x10(6)/[facility] LABORATORY Hemoglobin 12.1 (L) 13.7 - [facility] 16.5 g/dL [facility]ORY Hematocrit 36.7 (L) 40.5 - [place] 48.5 % [facility] LABOR[facility]ORY MCV 87.6 82.9 - [facility] RYAN 93.1 [facility] LABORATORY MCH 28.9 27.5 - [place] 32.1 pg [facility] LABORATORY MCHC 33.0 32.0 - [place] 35.7 g/dL [facility]ORATORY Platelets 231 145 - 357 [facility] x10(3)/[facility] LABORATORY RDWSD 47.2 (H) 36.0 - [place] RY[place] 45.0 [facility] LABORATORY RDWCV 14.6 (H) 11.4 - [facility] RYAN 13.8 % [facility] LABORATORY MPV 9.5 7.6 - 12.9 [facility] LABORATORY nRBC % Auto 0.0 % [facility] LABOR[facility]ORY nRBC Abs Auto 0.000 0.000 - [place] RYAN 0.000 [facility] x10(3)/[facility] LABORATORY Specimen Anatomical Collection Method Collection Time Receive d Time (Source) Location / / Volume Laterality Blood 12/12/2021 4:51 AM 2 5:06 EDT AM EDT Resulting Agency Comment Spec In Lab Bijan Sun MD HEMATOLOGY ORDERABLES Performing Organization Address City/State/[place] [address] (ABNORMAL) Prothrombin Time (12/12/2021 4:51 AM EDT) P athologist Signature PT 14.9 (H) 9.4 - 12.5 [facility] LABORATORY INR 1.3 [facility] Comment: An INR [...] Organization Address City/State/ZIP Code Phon e Number [place] [id number] (ABNORMAL) BMP w/fasting Glucose (12/12/2021 4:51 AM EDT) P athologist Signature Glucose 152 (H) 65 - 99 [facility] Fasting mg/dL [facility] Comment: ?Fasting* Glucose Interpretive C [...] of Diabetes Mellitus, Position Statement from the [place] [employer]. ??Diabete s Care, Volume 33, Supplement 1, Jul 2009 BUN 52 (H) 10 - 20 mg/dL [facility] LABORATORY Creatinine 1.72 (H) 0.80 - 1.50 mg/dL [facility] LABORATORY Sodium 143 135 - 145 mmol/L [facility] Potassium 3.9 3.5 - 5.0 mmol/L [facility] Comment: Please note: ??Patients with WBC >100,00 0 may have falsely elevated Potassium levels. ??For accurate Potassium quantif ication in these patients send serum separator tube (gold top) for subsequent determinations. ??Contact the Clinical Chemistry Laboratory if there are any qu estions. Chloride 105 98 - 107 mmol/L [facility] CO2 21 (L) 22 - 31 mmol/L [facility] Anion Gap 17 (H) 5 - 15 mmol/L [facility] LABOR[facility]ORY Calcium 8.9 8.5 - 10.5 mg/dL [facility]OR[facility]ORY Estimated GFR 38 (L) >=60 mL/min/1.73 m?? [facility] Comment: This patient? s [...] Organization Address City/State/[place] [address] Magnesium (12/12/2021 4:51 AM EDT) P athologist Signature Magnesium 1.02 0.69 - 1.07 [facility] mmol/L [facility]ORY Specimen Anatomical Collection Method Collection Time Receive d Time (Source) Location / / Volume Laterality Blood 12/12/2021 4:51 AM 2 5:06 EDT AM EDT Resulting Agency Comment Spec In Lab Iker Cuevas MD CHEMISTRY ORDERABLES Performing Organization Address City/State/ZIP Code Phon e Number [address] POCT Glucose (12/12/2021 3:43 AM EDT) P athologist Signature POC Glucose 138 65 - 199 [facility] mg/dL [facility] Comment: Supplemental ranges: <140 mg/dL before meals <180 mg/dL all other times of the day Specimen Anatomical Collection Method Collection Time Receive d Time (Source) Location / / Volume Laterality Blood 12/12/2021 3:43 AM 2 3:43 EDT AM EDT Iker Cuevas MD POINT OF CARE TEST ORDERABLE S Performing Organization Address City/State/Z[place] [address] POCT Glucose (12/11/2021 11:44 PM EDT) athologist Signature POC Glucose 124 65 - 199 [place] mg/dL [facility] Comment: Supplemental ranges: <140 mg/dL before meals <180 mg/dL all other times of the day Specimen Anatomical Collection Method Collection Time Receive d Time (Source) Location / / Volume Laterality Blood 12/11/2021 11:44 12/11/2021 PM EDT 11:44 PM EDT Iker Cuevas MD POINT OF CARE TEST ORDERABLE S Performing Organization Address City/State/ZIP [place] [address] (ABNORMAL) POCT Glucose (12/11/2021 8:12 PM EDT) athologist Signature POC Glucose 200 (H) 65 - 199 [place] mg/dL [facility] Comment: Supplemental ranges: <140 mg/dL before meals <180 mg/dL all other times of the day Specimen Anatomical Collection Method Collection Time Receive d Time (Source) Location / / Volume Laterality Blood 12/11/2021 8:12 PM 2 8:12 EDT PM EDT Iker Cuevas MD POINT OF CARE TEST ORDERABLE S Performing Organization Address City/State/ZIP [place] [address] (ABNORMAL) POCT Glucose (12/11/2021 6:50 PM EDT) athologist Signature POC Glucose 245 (H) 65 - 199 [place] mg/dL [facility] Comment: Supplemental ranges: <140 mg/dL before meals <180 mg/dL all other times of the day Specimen Anatomical Collection Method Collection Time Receive d Time (Source) Location / / Volume Laterality Blood 12/11/2021 6:50 PM 2 6:50 EDT PM EDT Iker Cuevas MD POINT OF CARE TEST ORDERABLE S Performing Organization Address City/[facility]/ZIP [place] [address] (ABNORMAL) POCT Glucose (12/11/2021 4:00 PM EDT) P athologist Signature POC Glucose 383 (H) 65 - 199 [facility] Comment: Supplemental ranges: <140 mg/dL before meals <180 mg/dL all other times of the day Specimen Anatomical Collection Method Collection Time Receive d Time (Source) Location / / Volume Laterality Blood 12/11/2021 4:00 PM 2 4:00 EDT PM EDT Iker Cuevas MD POINT OF CARE TEST ORDERABLE S Performing Organization Address City/[facility]/ZIP [place] [address] (ABNORMAL) POCT Glucose (12/11/2021 12:01 PM EDT) P athologist Signature POC Glucose 342 (H) 65 - 199 [facility]dL [facility] LABORATORY Comment: Supplemental ranges: <140 mg/dL before meals <180 mg/dL all other times of the day Specimen Anatomical Collection Method Collection Time Receive d Time (Source) Location / / Volume Laterality Blood 12/11/2021 12:01 12/11/2021 PM EDT 12:01 PM EDT Iker Cuevas MD POINT OF CARE TEST ORDERABLE S Performing Organization Address City/[facility]/ZIP Code Phon e Number [address] COVID-19 PCR (12/11/2021 10:13 AM EDT) [facility] gist Method Time Signature SARS-CoV-2 Not Detected Not Detected [facility] LABORATORY Comment: This result [...] diagnosis of COVID-19 is performed using the [employer] RONNA S-CoV-2 Assay as authorized by the FDA Emergency Use Authorization (EUA). This EUA assay is intended for In-vitro Diagnostic (IVD) use with respiratory sp ecimens such as nasopharyngeal swabs collected from individuals during the ac terrence phase of infection. This assay is performed based on the instructions for use provided by [employer] and additional guidance provided by CDC and FDA. Testing is performed in the Clinical Genomics and Advanced Technolog y Laboratory within the Department of Pathology and Laboratory Medicine at [facility], certified under the Clinical Laboratory Improvement Amendments [...] required or requested by public health [facility], positive specimens may be sent for [...] clinical management guidance information are available at [facility] Coronavirus Disease 2019 (COVID-19) webpage under Information fo r Healthcare Professionals (https://www.cdc.gov/coronavirus/2019-nc ov/hcp/index.html) Additional information about this and ot her EUA tests can be found in provider and patient fact sheets at the following FDA website: https://www.fda.gov/medical-devices/sfangbyrtuk-cqjmgyz-8043-fptkw-93-kwfphnjnm- jgs-jxaicefdwnpihg-ykpkhfb-devices/deufc-cnpqmgnsefs-ovvb SARS-Cov-2 RNA Source [employer] LICENCE EXAMINER Swab [facility] LABORATORY Specimen (Source) Anatomical Collection Method Collection Time Re ceived Time Location / / Volume Laterality Nasopharyngeal Swab 12/11/2021 10:13 0503/2022 AM EDT 11:16 AM EDT Comment: Symptoms->Surveillance Resulting Agency Comment Spec In Lab Iker Cuevas MD MICROBIOLOGY - GENERAL ORDER ROBSON Performing Organization Address City/[facility]/ZIP [place] [address] POCT Glucose (12/11/2021 7:34 AM EDT) athologist Signature POC Glucose 198 65 - 199 [facility] mg/dL [facility] LABORATORY Comment: Supplemental ranges: <140 mg/dL before meals <180 mg/dL all other times of the day Specimen Anatomical Collection Method Collection Time Receive d Time (Source) Location / / Volume Laterality Blood 12/11/2021 7:34 AM 7:34 EDT AM EDT Iker Cuevas MD POINT OF CARE TEST ORDERABLE S Performing Organization Address City/[facility]/ZIP [place] [address] (ABNORMAL) POCT Glucose (12/11/2021 5:07 AM EDT) athologist Signature POC Glucose 208 (H) 65 - 199 [facility] mg/dL [facility] LABORATORY Comment: Supplemental ranges: <140 mg/dL before meals <180 mg/dL all other times of the day Specimen Anatomical Collection Method Collection Time Receive d Time (Source) Location / / Volume Laterality Blood 12/11/2021 5:07 AM 2 5:07 EDT AM EDT Iker Cuevas MD POINT OF CARE TEST ORDERABLE S Performing Organization Address City/State/ZIP [place] [address] (ABNORMAL) Differential, Automated (12/11/2021 4:28 AM EDT) [facility] Method Time Signature Neutrophils % 79.6 % [facility] LABORATORY Neutr Abs (ANC) 7.01 (H) 1.70 - [facility] 6.10 [facility] x10(3)/[facility] L LABORATORY Lymphocytes % 9.1 % [facility] LABORATORY Lymphocytes Abs 0.8 (L) 0.9 - 3.2 [facility] x10(3)/[facility] LABORATORY Monocytes % 9.2 % [facility] LABORATORY Monocyte Abs 0.8 0.3 - 0.9 [facility] x10(3)/[facility] LABORATORY Eosinophils % 1.3 % [facility] LABORATORY Eosinophils Abs 0.1 0.0 - 0.4 [facility] x10(3)/[facility] LABORATORY Basophils % 0.5 % [facility] LABORATORY Basophils Abs 0.0 0.0 - 0.1 [facility] x10(3)/[facility] LABORATORY Immature Gran % 0.30 % [...] Abs 0.03 0.00 - 0.04 x10(3)/[facility] LABORATORY Specimen Anatomical Collection Method Collection Time Receive d Time (Source) Location / / Volume Laterality Blood 12/11/2021 4:28 AM 2 4:37 EDT AM EDT Resulting Agency Comment Spec In Lab Bijan Sun MD HEMATOLOGY ORDERABLES Performing Organization Address City/State/[place] [address] (ABNORMAL) Hemogram (12/11/2021 4:28 AM EDT) Analysis Performed At Patho logist Time Signature WBC 8.8 4.0 - 9.5 [facility] x10(3)/[facility] LABORATORY RBC 4.15 (L) 4.58 - [facility] 5.54 [facility] x10(6)/[facility] LABORATORY Hemoglobin 11.9 (L) 13.7 - [facility] 16.5 g/dL [facility] LABORATORY Hematocrit 36.9 (L) 40.5 - [facility] 48.5 % [facility] LABORATORY MCV 88.9 82.9 - [facility] 93.1 [facility] LABORATORY MCH 28.7 27.5 - [facility] RYAN 32.1 pg [facility] LABORATORY MCHC 32.2 32.0 - [facility] RYAN 35.7 g/dL [facility] LABORATORY Platelets 211 145 - 357 [facility] x10(3)/[facility] LABORATORY RDWSD 48.3 (H) 36.0 - [facility] 45.0 [facility] LABORATORY RDWCV 14.8 (H) 11.4 - [facility] 13.8 % [facility] LABORATORY MPV 9.6 7.6 - 12.9 [facility] LABORATORY nRBC % Auto 0.0 % [facility] LABORATORY nRBC Abs Auto 0.000 0.000 - [facility] RYAN 0.000 [facility] x10(3)/[facility] LABORATORY Specimen Anatomical Collection Method Collection Time Receive d Time (Source) Location / / Volume Laterality Blood 12/11/2021 4:28 AM 4:37 EDT AM EDT Resulting Agency Comment Spec In Lab Bijan Sun MD HEMATOLOGY ORDERABLES Performing Organization Address City/State/[place] [address] (ABNORMAL) Prothrombin Time (12/11/2021 4:28 AM EDT) P athologist Signature PT 17.7 (H) 9.4 - 12.5 [facility] sec [facility] LABORATORY INR 1.6 [facility] LABORATORY Comment: An INR [...] Organization Address City/State/ZIP [place] [address] (ABNORMAL) BMP w/fasting Glucose (12/11/2021 4:28 AM EDT) athologist Signature Glucose 207 (H) 65 - 99 [facility] Fasting mg/dL [facility] LABORATORY Comment: ?Fasting* Glucose Interpretive C [...] of Diabetes Mellitus, Position Statement from the [place] [employer]. ??Diabete s Care, Volume 33, Supplement 1, Jul 2009 BUN 49 (H) 10 - 20 mg/dL [facility] LABORATORY Creatinine 1.43 0.80 - 1.50 mg/dL [facility] LABORATORY Sodium 142 135 - 145 [...] 107 mmol/L [facility] LABORATORY CO2 23 22 - 31 mmol/L [facility] LABORATORY Anion Gap 15 5 - 15 mmol/L [facility] LABORATORY Calcium 8.6 8.5 - 10.5 mg/dL [facility] LABORATORY Estimated GFR 48 (L) >=60 mL/min/1.73 m?? [facility] LABORATORY Comment: This patient? s [...] Address City/State/[place] [address] Magnesium (12/11/2021 4:28 AM EDT) P athologist Signature Magnesium 1.04 0.69 - 1.07 [facility] mmol/L [facility] LABORATORY Specimen Anatomical Collection Method Collection Time Receive d Time (Source) Location / / Volume Laterality Blood 12/11/2021 4:28 AM 2 4:37 EDT AM EDT Resulting Agency Comment Spec In Lab Iker Cuevas MD CHEMISTRY ORDERABLES Performing Organization Address City/State/ZIP Code Phon e Number [address] POCT Glucose (12/11/2021 3:58 AM EDT) athologist Signature POC Glucose 189 65 - 199 [facility] mg/dL [facility] LABORATORY Comment: Supplemental ranges: <140 mg/dL before meals <180 mg/dL all other times of the day Specimen Anatomical Collection Method Collection Time Receive d Time (Source) Location / / Volume Laterality Blood 12/11/2021 3:58 AM 2 3:58 EDT AM EDT Iker Cuevas MD POINT OF CARE TEST ORDERABLE S Performing Organization Address City/State/ZIP [place] [address] (ABNORMAL) POCT Glucose (12/10/2021 11:45 PM EDT) P athologist Signature POC Glucose 205 (H) 65 - 199 [facility] mg/dL [facility] LABORATORY Comment: Supplemental ranges: <140 mg/dL before meals <180 mg/dL all other times of the day Specimen Anatomical Collection Method Collection Time Receive d Time (Source) Location / / Volume Laterality Blood 12/10/2021 11:45 12/10/2021 PM EDT 11:45 PM EDT Iker Cuevas MD POINT OF CARE TEST ORDERABLE S Performing Organization Address City/State/ZIP [place] [address] (ABNORMAL) POCT Glucose (12/10/2021 7:54 PM EDT) P athologist Signature POC Glucose 225 (H) 65 - 199 [facility] mg/dL [facility] LABORATORY Comment: Supplemental ranges: <140 mg/dL before meals <180 mg/dL all other times of the day Specimen Anatomical Collection Method Collection Time Receive d Time (Source) Location / / Volume Laterality Blood 12/10/2021 7:54 PM 2 7:54 EDT PM EDT Iker Cuevas MD POINT OF CARE TEST ORDERABLE S Performing Organization Address City/[facility]/ZIP [place] [address] Potassium (12/10/2021 7:46 PM EDT) athologist Signature Potassium 4.2 3.5 - 5.0 [facility] mmol/L [facility] LABORATORY Comment: Please note: ??Patients with [...] Address City/[facility]/ZIP [place] [address] (ABNORMAL) Basic Metabolic Panel (non-fasting) (12/10/2021 6:12 PM EDT) athologist Signature Glucose Lvl 246 (H) 65 - 199 [facility] mg/dL [facility] LABORATORY Comment: Diabetes: >=200 mg/dL plus symp toms BUN 50 (H) 10 - 20 mg/dL [facility] LABORATORY Creatinine 1.39 0.80 - 1.50 mg/dL [facility] LABORATORY Sodium 138 135 - 145 [...] 107 mmol/L [facility] LABORATORY CO2 22 22 - 31 mmol/L [facility] LABORATORY Anion Gap 16 (H) 5 - 15 mmol/L [facility] LABORATORY Calcium 8.3 (L) 8.5 - 10.5 mg/dL [facility] LABORATORY Estimated GFR 49 (L) >=60 mL/min/1.73 m?? [facility] LABORATORY Comment: This patient? s [...] Address City/State/[place] [address] POCT Glucose (12/10/2021 4:59 PM EDT) P athologist Signature POC Glucose 158 65 - 199 [facility] mg/dL [facility] LABORATORY Comment: Supplemental ranges: <140 mg/dL before meals <180 mg/dL all other times of the day Specimen Anatomical Collection Method Collection Time Receive d Time (Source) Location / / Volume Laterality Blood 12/10/2021 4:59 PM 4:59 EDT PM EDT Iker Cuevas MD POINT OF CARE TEST ORDERABLE S Performing Organization Address City/[facility]/ZIP Code Phon e Number [address] (ABNORMAL) POCT Glucose (12/10/2021 12:43 PM EDT) P athologist Signature POC Glucose 241 (H) 65 - 199 [facility] mg/dL [facility] LABORATORY Comment: Supplemental ranges: <140 mg/dL before meals <180 mg/dL all other times of the day Specimen Anatomical Collection Method Collection Time Receive d Time (Source) Location / / Volume Laterality Blood 12/10/2021 12:43 12/10/2021 PM EDT 12:43 PM EDT kIer Cuevas MD POINT OF CARE TEST ORDERABLE S Performing Organization Address [facility] [place] [address] EKG 12 Lead (12/10/2021 11:17 AM EDT) Component Value Ref Range Test Analysis Performed Pathologis t Method Time At Signature Ventricular rate 62 BPM MUSE SYSTEM Atrial Rate 62 BPM MUSE SYSTEM P-R Interval 142 ms MUSE SYSTEM QRS Duration 100 ms MUSE SYSTEM Q-T Interval 434 ms MUSE SYSTEM QTC Calculated 440 ms MUSE SYSTEM (Bezet) Calculated P [place] 34 degrees MUSE SYSTEM Calculated R [place] -39 degrees MUSE SYSTEM Calculated T [place] 92 degrees MUSE SYSTEM INTERPRETATION Normal sinus rhythm MUSE SYSTEM Left axis deviation Minimal voltage criteria for LVH, may be normal variant ( [place] product ) Cannot rule out Inferior infarct [...] SYSTEM - 12/10/2021 12:04 PM E DT ?[facility] ? Cardiac Cathete rization/Intervention Report ? Patient Name: Don Fatima. ? Procedure Date: 12/10/2021 ? A #: [id number] ? Primary Physician: Vitaliy Nobles ? Case #: [id number] ? File Name: [id number] ? Catheterization Order Number: [id number] ? [facility] ? Final Report [place], [place] ? Patient Name: ? Don E. Stewa rt ? ID#: ?[id number] ? : ?1945 ? Procedure Date: ? December 10, 2021 ? Case #: ? [id number] ? Room: ? 1 ? Case Physician: [...] was ?designated as ASA Class III. e [facility] clinical frailty scale is 5: [...] procedure was Urgent. The indication for ?the lab technician visit is ACS great er [...] ?3.75 guiding catheter and a 3.5 Fr [place] [facility] [place] [facility] [place] 20 Mhz using Manual ?pullback. ??Imaging was [...] ?3.75 guiding catheter and a 3.5 Fr [place] [facility] [place] [facility] [place] 20 Mhz using Manual ?pullback. ??Imaging was [...] require ?modification of this regimen. C onsult [facility] Interventional Cardiology for ?questions. ?The 1 year bleeding risk as nusrat culated by the PRECISE DAPT score is High ?risk. ?High Bleeding Risk - Anticoagul ation and DAPT: ?- ??Assess ischemic and bleedin g risks using validated risk predictors ?(e.g. CHADS2-VASC, HAS-BLED, MT ECISE DAPT, DAPT Score) ?- ??Keep anticoagulant [...] Procedure Note Vitaliy Nobles MD - 01/14/2022 [facility] Cardiac Catheterization/Intervention Re port Patient Name: Don Fatima Procedure Date: 12/10/2021 A #: [id number] Primary Physician: Vitaliy Nobles Case #: [id number] File Name: [id number] Catheterization Order Number: [id number] [facility] Final Report [place], [place] Patient Name: Don Fatima ID#: [...] e was Urgent. The indication for the lab technician visit is ACS greater than [...] and a 3.5 Fr [place] [facility] [place] 20 Mhz using Manual pullback. Imaging was [...] and a 3.5 Fr [place] [facility] [place] 20 Mhz using Manual pullback. Imaging was [...] require modification of this regimen. Consult D [facility] Interventional Cardiology for questions. The 1 year [...] POC Glucose 262 (H) 65 - 199 [facility] mg/dL [facility] LABORATORY Comment: Supplemental ranges: <140 mg/dL before meals <180 mg/dL all other times of the day Specimen Anatomical Collection Method Collection Time Receive d Time (Source) Location / / Volume Laterality Blood 12/10/2021 10:30 12/10/2021 AM EDT 10:30 AM EDT Iker Cuevas MD POINT OF CARE TEST ORDERABLE S Performing Organization Address City/State/[place] [address] (ABNORMAL) POCT Glucose (12/10/2021 9:48 AM EDT) athologist Signature POC Glucose 279 (H) 65 - 199 [facility] LABORATORY Comment: Supplemental ranges: <140 mg/dL before meals <180 mg/dL all other times of the day Specimen Anatomical Collection Method Collection Time Receive d Time (Source) Location / / Volume Laterality Blood 12/10/2021 9:48 AM 2 9:48 EDT AM EDT Iker Cuevas MD POINT OF CARE TEST ORDERABLE S Performing Organization Address City/State/ZIP [place] [address] (ABNORMAL) POCT Glucose (12/10/2021 9:07 AM EDT) P athologist Signature POC Glucose 268 (H) 65 - 199 [facility] mg/dL [facility] LABORATORY Comment: Supplemental ranges: <140 mg/dL before meals <180 mg/dL all other times of the day Specimen Anatomical Collection Method Collection Time Receive d Time (Source) Location / / Volume Laterality Blood 12/10/2021 9:07 AM 2 9:07 EDT AM EDT Iker Cuevas MD POINT OF CARE TEST ORDERABLE S Performing Organization Address City/[facility]/ZIP [place] [address] (ABNORMAL) Point of Care Blood Gas Historical (12/10/2021 9:04 AM EDT) Patholo gist Method Time Signature POC pH 7.40 7.35 - [facility] 7.45 [facility] LABORATORY POC PCO2 40 35 - 45 [facility] LABORATORY POC PO2 63 (L) 85 - 104 [facility] LABORATORY POC Base Excess 0.0 -3.0 - 3.0 [facility] K mmol/L [facility] LABORATORY POC HCO3 24.8 20.0 - [facility] 26.0 [facility] mmol/ HOSPITAL LABORATORY POC Sodium 143 135 - 145 [facility] mmol/L [facility] LABORATORY POC Potassium 3.7 3.5 - 5.0 [facility] mmol/L [facility] LABORATORY POC Ionized Ca 1.07 (L) 1.15 - [facility] 1.33 [facility] mmol/[facility] LABORATORY POC Hematocrit 30.0 (L) 40.0 - [facility] 51.0 % [facility] POC Calc Hgb 10.2 (L) 13.7 - [facility] 17.5 g/dL [facility] LABORATORY Comment: The calculation of hemoglobin f rom hematocrit assumes a normal MCHC. POC Bgas Loc CC LAB [facility] LABORATORY Specimen Anatomical Collection Method Collection Time Receive d Time (Source) Location / / Volume Laterality Blood 12/10/2021 9:04 AM 2 EDT 12:00 PM EDT Ifeanyi Truong MD CHEMISTRY ORDERABLES Performing Organization Address City/[facility]/ZIP [place] [address] (ABNORMAL) POCT Glucose (12/10/2021 7:19 AM EDT) athologist Signature POC Glucose 274 (H) 65 - 199 [facility] mg/dL [facility] LABORATORY Comment: Supplemental ranges: <140 mg/dL before meals <180 mg/dL all other times of the day Specimen Anatomical Collection Method Collection Time Receive d Time (Source) Location / / Volume Laterality Blood 12/10/2021 7:19 AM 2 7:19 EDT AM EDT Iker Cuevas MD POINT OF CARE TEST ORDERABLE S Performing Organization Address City/[facility]/ZIP [place] [address] Heparin (unfractionated) Level (12/10/2021 4:25 AM EDT) athologist Signature Heparin UFH 0.69 IU/mL [facility] LABORATORY Comment: Heparin (anti-Xa) levels should be [...] Address City/State/Z[place] [address] (ABNORMAL) Differential, Automated (12/10/2021 4:25 AM EDT) [facility] Method Time Signature Neutrophils % 79.8 % [facility] LABORATORY Neutr Abs (ANC) 7.47 (H) 1.70 - [facility] 6.10 [facility] x10(3)/[facility] LABORATORY Lymphocytes % 10.6 % [facility] LABORATORY Lymphocytes Abs 1.0 0.9 - 3.2 [facility] x10(3)/[facility] LABORATORY Monocytes % 8.4 % [facility] LABORATORY Monocyte Abs 0.8 0.3 - 0.9 [facility] x10(3)/[facility] LABORATORY Eosinophils % 0.6 % [facility] LABORATORY Eosinophils Abs 0.1 0.0 - 0.4 [facility] x10(3)/[facility] LABORATORY Basophils % 0.2 % [facility] LABORATORY Basophils Abs 0.0 0.0 - 0.1 [facility] x10(3)/[facility] LABORATORY Immature Gran % 0.40 [...] Abs 0.04 0.00 - 0.04 x10(3)/[facility] LABORATORY Specimen Anatomical Collection Method Collection Time Receive d Time (Source) Location / / Volume Laterality Blood 12/10/2021 4:25 AM 2 4:34 EDT AM EDT Resulting Agency Comment Spec In Lab Morgan BROWN HEMATOLOGY ORDERABLES Performing Organization Address City/State/ZIP [place] [address] (ABNORMAL) Hemogram (12/10/2021 4:25 AM EDT) Analysis Performed At Patho logist Time Signature WBC 9.4 4.0 - 9.5 [facility] x10(3)/[facility] LABORATORY RBC 3.81 (L) 4.58 - [facility] 5.54 [facility] x10(6)/[facility] LABORATORY Hemoglobin 11.1 (L) 13.7 - [facility] 16.5 g/dL [facility] LABORATORY Hematocrit 34.0 (L) 40.5 - [facility] 48.5 % [facility] LABORATORY MCV 89.2 82.9 - [facility] 93.1 [facility] LABORATORY MCH 29.1 27.5 - [facility] 32.1 pg [facility] LABORATORY MCHC 32.6 32.0 - [facility] 35.7 g/dL [facility] LABORATORY Platelets 183 145 - 357 [facility] x10(3)/[facility] LABORATORY RDWSD 49.9 (H) 36.0 - [facility] RYAN 45.0 [facility] LABORATORY RDWCV 15.2 (H) 11.4 - [facility] 13.8 % [facility] LABORATORY MPV 9.8 7.6 - 12.9 [facility] LABORATORY nRBC % Auto 0.0 % [facility] LABORATORY nRBC Abs Auto 0.000 0.000 - [facility] RYAN 0.000 [facility] x10(3)/[facility] LABORATORY Specimen Anatomical Collection Method Collection Time Receive d Time (Source) Location / / Volume Laterality Blood 12/10/2021 4:25 AM 2 4:34 EDT AM EDT Resulting Agency Comment Spec In Lab Morgan BROWN HEMATOLOGY ORDERABLES Performing Organization Address City/State/ZIP [place] [address] (ABNORMAL) Prothrombin Time (12/10/2021 4:25 AM EDT) athologist Signature PT 20.0 (H) 9.4 - 12.5 [facility] LABORATORY INR 1.7 [facility] LABORATORY Comment: An INR [...] Organization Address City/State/ZIP [place] [address] (ABNORMAL) BMP w/fasting Glucose (12/10/2021 4:25 AM EDT) athologist Signature Glucose 210 (H) 65 - 99 [facility] Fasting mg/dL [facility] Comment: ?Fasting* Glucose Interpretive C [...] of Diabetes Mellitus, Position Statement from the [place] Diabetes Association. ??Diabete s Care, Volume 33, Supplement 1, Jul 2009 BUN 54 (H) 10 - 20 mg/dL [facility] Creatinine 1.52 (H) 0.80 - 1.50 mg/dL [facility] Sodium 140 135 - 145 mmol/L [facility] Potassium 3.9 3.5 - 5.0 mmol/L [facility] Comment: Please note: ??Patients with WBC >100,00 0 may have falsely elevated Potassium levels. ??For accurate Potassium quantif ication in these patients send serum separator tube (gold top) for subsequent determinations. ??Contact the Clinical Chemistry Laboratory if there are any qu estions. Chloride 104 98 - 107 mmol/L [facility] CO2 23 22 - 31 mmol/L [facility] Anion Gap 13 5 - 15 mmol/L [facility] Calcium 8.0 (L) 8.5 - 10.5 mg/dL [facility] Estimated GFR 44 (L) >=60 mL/min/1.73 m?? [facility] Comment: This patient? s [...] Organization Address City/State/[place] [address] Magnesium (12/10/2021 4:25 AM EDT) athologist Signature Magnesium 0.95 0.69 - 1.07 [facility] mmol/L [facility] Specimen Anatomical Collection Method Collection Time Receive d Time (Source) Location / / Volume Laterality Blood 12/10/2021 4:25 AM 2 4:34 EDT AM EDT Resulting Agency Comment Spec In Lab Iker Cuevas MD CHEMISTRY ORDERABLES Performing Organization Address City/State/Z[place] [address] POCT Glucose (12/10/2021 1:58 AM EDT) athologist Signature POC Glucose 164 65 - 199 [facility] R[facility]AN mg/dL [facility] Comment: Supplemental ranges: <140 mg/dL before meals <180 mg/dL all other times of the day Specimen Anatomical Collection Method Collection Time Receive d Time (Source) Location / / Volume Laterality Blood 12/10/2021 1:58 AM 2 1:58 EDT AM EDT Iker Cuevas MD POINT OF CARE TEST ORDERABLE S Performing Organization Address City/State/Z[place] [address] (ABNORMAL) POCT Glucose (12/09/2021 9:02 PM EDT) athologist Signature POC Glucose 313 (H) 65 - 199 [facility] RYAN mg/dL [facility] Comment: Supplemental ranges: <140 mg/dL before meals <180 mg/dL all other times of the day Specimen Anatomical Collection Method Collection Time Receive d Time (Source) Location / / Volume Laterality Blood 12/09/2021 9:02 PM 2 9:02 EDT PM EDT Iker Cuevas MD POINT OF CARE TEST ORDERABLE S Performing Organization Address City/State/Z[place] [address] Heparin (unfractionated) Level (12/09/2021 7:30 PM EDT) athologist Signature Heparin UFH 0.48 IU/mL [facility] Comment: Heparin (anti-Xa) levels should [...] Address City/State/[place] [address] (ABNORMAL) Basic Metabolic Panel (non-fasting) (12/09/2021 7:30 PM EDT) P athologist Signature Glucose Lvl 372 (H) 65 - 199 [facility] mg/dL [facility] Comment: Diabetes: >=200 mg/dL plus symp toms BUN 56 (H) 10 - 20 mg/dL [facility] Creatinine 1.75 (H) 0.80 - 1.50 mg/dL [facility] Sodium 138 135 - 145 [...] 107 mmol/L [facility] CO2 22 22 - 31 mmol/L [facility] Anion Gap 14 5 - 15 mmol/L [facility] Calcium 8.1 (L) 8.5 - 10.5 mg/dL [facility] Estimated GFR 37 (L) >=60 mL/min/1.73 m?? [facility] Comment: This patient? s [...] Organization Address City/State/Z[place] [address] (ABNORMAL) POCT Glucose (12/09/2021 6:34 PM EDT) P athologist Signature POC Glucose 408 (H) 65 - 199 [facility] Comment: Supplemental ranges: <140 mg/dL before meals <180 mg/dL all other times of the day Specimen Anatomical Collection Method Collection Time Receive d Time (Source) Location / / Volume Laterality Blood 12/09/2021 6:34 PM 2 6:34 EDT PM EDT Iker Cuevas MD POINT OF CARE TEST ORDERABLE S Performing Organization Address City/State/ZIP [place] [address] (ABNORMAL) POCT Glucose (12/09/2021 6:32 PM EDT) athologist Signature POC Glucose 356 (H) 65 - 199 [facility] Comment: Supplemental ranges: <140 mg/dL before meals <180 mg/dL all other times of the day Specimen Anatomical Collection Method Collection Time Receive d Time (Source) Location / / Volume Laterality Blood 12/09/2021 6:32 PM 2 6:32 EDT PM EDT Iker Cuevas MD POINT OF CARE TEST ORDERABLE S Performing Organization Address City/State/Z[place] [address] (ABNORMAL) POCT Glucose (12/09/2021 4:19 PM EDT) athologist Signature POC Glucose 347 (H) 65 - 199 [facility]/dL [facility] Comment: Supplemental ranges: <140 mg/dL before meals <180 mg/dL all other times of the day Specimen Anatomical Collection Method Collection Time Receive d Time (Source) Location / / Volume Laterality Blood 12/09/2021 4:19 PM 2 4:19 EDT PM EDT Iker Cuevas MD POINT OF CARE TEST ORDERABLE S Performing Organization Address City/State/ZIP [place] [address] Heparin (unfractionated) Level (12/09/2021 1:29 PM EDT) athologist Signature Heparin UFH 0.42 IU/mL [facility] Comment: Heparin (anti-Xa) levels should be [...] Address City/[facility]/ZIP [place] [address] (ABNORMAL) POCT Glucose (12/09/2021 12:02 PM EDT) P athologist Signature POC Glucose 235 (H) 65 - 199 [facility] mg/dL [facility] Comment: Supplemental ranges: <140 mg/dL before meals <180 mg/dL all other times of the day Specimen Anatomical Collection Method Collection Time Receive d Time (Source) Location / / Volume Laterality Blood 12/09/2021 12:02 12/09/2021 PM EDT 12:02 PM EDT Iker Cuevas MD POINT OF CARE TEST ORDERABLE S Performing Organization Address City/[facility]/ZIP [place] [address] (ABNORMAL) POCT Glucose (12/09/2021 9:44 AM EDT) P athologist Signature POC Glucose 214 (H) 65 - 199 [facility] mg/dL [facility] Comment: Supplemental ranges: <140 mg/dL before meals <180 mg/dL all other times of the day Specimen Anatomical Collection Method Collection Time Receive d Time (Source) Location / / Volume Laterality Blood 12/09/2021 9:44 AM 9:44 EDT AM EDT Iker Cuevas MD POINT OF CARE TEST ORDERABLE S Performing Organization Address City/[facility]/ZIP [place] [address] EKG 12 Lead (12/09/2021 7:57 AM EDT) Component Value Ref Range Test Analysis Performed Pathologis t Method Time At Signature Ventricular rate 101 BPM MUSE SYSTEM Atrial Rate 101 BPM MUSE SYSTEM P-R Interval 150 ms MUSE SYSTEM QRS Duration 112 ms MUSE SYSTEM Q-T Interval 364 ms MUSE SYSTEM QTC Calculated 471 ms MUSE SYSTEM (Bezet) Calculated P [place] 59 degrees MUSE SYSTEM Calculated R [place] -42 degrees MUSE SYSTEM Calculated T [place] 102 degrees MUSE SYSTEM INTERPRETATION Sinus tachycardia Occasional Premature ventricular com plexes MUSE SYSTEM Left axis deviation 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) Abnormal ECG When compared with ECG of 08-DEC-2021 16:40, Premature ventricular complexes are now Present Confirmed by MD Jim, Yoon ([id number]) on 12/10/2021 4:55:06 PM Specimen Anatomical Collection Method Collection Time Receive d Time (Source) Location / / Volume Laterality 12/09/2021 7:57 AM 2 4:55 EDT PM EDT Iker Cuevas MD ECG ORDERABLES Performing Organization Address City/State/ZIP Code Phon e Number MUSE SYSTEM (ABNORMAL) POCT Glucose (12/09/2021 7:28 AM EDT) P athologist Signature POC Glucose 263 (H) 65 - 199 [facility] mg/dL [facility] Comment: Supplemental ranges: <140 mg/dL before meals <180 mg/dL all other times of the day Specimen Anatomical Collection Method Collection Time Receive d Time (Source) Location / / Volume Laterality Blood 12/09/2021 7:28 AM 7:28 EDT AM EDT Iker Cuevas MD POINT OF CARE TEST ORDERABLE S Performing Organization Address City/State/[place] [address] (ABNORMAL) Hemoglobin A1c (12/09/2021 [...] Avg Gluc See note mg/dL [facility] Comment: Estimated Average Glucose not [...] with hemoglobinopathies. Additional resources are available on [facility] ADA website. Macario HAMMOND, Ruthann J, Deysi R, et al. ??Tr anslating the A1C assay into estimated average glucose values. ??Diabetes Care 2008:31(8):7019-3855. Specimen Anatomical Collection Method Collection Time Receive d Time (Source) Location / / Volume Laterality Blood Venous Draw / 12/09/2021 6:18 AM 12/10/19 22 Unknown EDT 12:24 PM EDT Resulting Agency Comment Spec In Lab Migdalia BROWN CHEMISTRY ORDERABLES Performing Organization Address City/State/[place] [address] (ABNORMAL) Prothrombin Time (12/09/2021 6:18 AM EDT) athologist Signature PT 26.6 (H) 9.4 - 12.5 [facility] LABORATORY INR 2.3 [facility] Comment: An INR [...] Migdalia BROWN HEMATOLOGY ORDERABLES Performing Organization Address City/[facility]/[place] [address] Heparin (unfractionated) Level (12/09/2021 6:18 AM EDT) athologist Signature Heparin UFH 0.24 IU/mL [facility] Comment: Heparin (anti-Xa) levels should be [...] Address City/[facility]/[place] [address] (ABNORMAL) Differential, Automated (12/09/2021 6:18 AM EDT) [facility] gist Method Time Signature Neutrophils % 91.5 % [facility] Neutr Abs (ANC) 15.78 (H) 1.70 - [facility] 6.10 [facility] x10(3)/[facility] LABORATORY Lymphocytes % 2.9 % [facility] Lymphocytes Abs 0.5 (L) 0.9 - 3.2 [facility] x10(3)/[facility] LABORATORY Monocytes % 4.9 % [facility] Monocyte Abs 0.8 0.3 - 0.9 [facility] x10(3)/[facility] LABORATORY Eosinophils % 0.0 % [facility] Eosinophils Abs 0.0 0.0 - 0.4 [facility] x10(3)/[facility] LABORATORY Basophils % 0.2 % [facility] Basophils Abs 0.0 0.0 - 0.1 [facility] x10(3)/[facility] LABORATORY Immature Gran % 0.50 % [...] Gran Abs 0.09 (H) 0.00 - 0.04 x10(3)/[facility] LABORATORY Specimen Anatomical Collection Method Collection Time Receive d Time (Source) Location / / Volume Laterality Blood 12/09/2021 6:18 AM 6:33 EDT AM EDT Resulting Agency Comment Spec In Lab Morgan BRWON HEMATOLOGY ORDERABLES Performing Organization Address City/State/ZIP Code Phon e Number [place] [id number] [address] (ABNORMAL) Hemogram (12/09/2021 6:18 AM EDT) Analysis Performed At Patho logist Time Signature WBC 17.2 (H) 4.0 - 9.5 [facility] x10(3)/[facility] LABORATORY RBC 4.32 (L) 4.58 - [facility] 5.54 [facility] x10(6)/[facility] LABORATORY Hemoglobin 12.6 (L) 13.7 - [facility] 16.5 g/dL [facility] Hematocrit 38.9 (L) 40.5 - [facility] 48.5 % [facility] MCV 90.0 82.9 - [facility] 93.1 [facility] LABORATORY MCH 29.2 27.5 - [facility] 32.1 pg [facility] MCHC 32.4 32.0 - [facility] 35.7 g/dL [facility] Platelets 193 145 - 357 [facility] x10(3)/[facility] LABORATORY RDWSD 50.4 (H) 36.0 - [facility] 45.0 [facility] LABORATORY RDWCV 15.2 (H) 11.4 - [facility] 13.8 % [facility] MPV 9.5 7.6 - 12.9 [facility] LABORATORY nRBC % Auto 0.0 % [facility] nRBC Abs Auto 0.000 0.000 - [facility] 0.000 [facility] x10(3)/[facility] LABORATORY Specimen Anatomical Collection Method Collection Time Receive d Time (Source) Location / / Volume Laterality Blood 12/09/2021 6:18 AM 2 6:33 EDT AM EDT Resulting Agency Comment Spec In Lab Morgan BROWN HEMATOLOGY ORDERABLES Performing Organization Address City/State/[place] [address] Lipid Panel (Reflex Direct LDL) (12/09/2021 6:18 AM EDT) P athologist Signature Chol, Total 105 mg/dL [facility] Comment: Lower Risk: <200 mg/dL Average Risk: 200-239 mg/dL Higher Risk: >kf=728 mg/dL Triglycerides 133 mg/dL [facility] Comment: Average Risk/Lower Risk: <150 mg/dL Borderline High Risk: 150-199 mg/dL High Risk: 200-499 mg/dL Very High Risk: >we=041 mg/dL HDL 42 mg/dL [facility] Comment: Males: ?? Higher Risk: <40 mg/dL Females: ?? Higher Risk: <50 mg/dL LDL Cholesterol 36 mg/dL [facility] Comment: Lowest Risk: <100 mg/dL Lower Risk: 100-129 mg/dL Borderline High Risk: 130-159 mg/dL High Risk: 160-189 mg/dL Very High Risk: >yh=548 mg/dL Chol/HDL Ratio 2.5 ratio [facility] Lipid Interpretation See Note [facility] Comment: Lipid management should be guided by a p atient? s ASCVD risk, goals and preferences. ACC/AHA Guidelines recommend high intens ity statin if clinical ASCVD or LDL greater than or equal to 190 mg/dL. http://Layer/KLW-ORI-Wtnaxhokf Adults aged 40-75 with LDL 70-189 mg/dL should have their 10 year ASCVD risk estimated with the ACC/AHA ASCVD risk es timator http://tools.acc.org/EVUAC-Qfyl-Ucwxhzuc r/ Statin should be discussed if risk [...] Address City/State/[place] [address] TSH (12/09/2021 6:18 AM EDT) athologist Signature TSH 1.60 0.27 - 4.20 [facility] mcIU/mL [facility] Comment: Reference Interval (mcIU/mL): Females: ??First Trimester: 0.23-3.88 ??Second Trimester: 0.22-3.90 ??Third Trimester: 0.44-4.66 Specimen Anatomical Collection Method Collection Time Receive d Time (Source) Location / / Volume Laterality Blood 12/09/2021 6:18 AM 2 6:33 EDT AM EDT Resulting Agency Comment Spec In Lab Iker Cuevas MD CHEMISTRY ORDERABLES Performing Organization Address City/[facility]/ZIP Code Phon e Number [address] Hepatic Function Panel (12/09/2021 6:18 AM EDT) athologist [facility] Total Protein 7.3 6.1 - 8.0 [facility] RYAN g/dL [facility] Albumin 4.2 3.2 - 5.2 [facility] g/dL [facility] AST 25 0 - 39 [facility] unit/L [facility] ALT 15 0 - 55 [facility] unit/L [facility] Alk Phos 75 40 - 130 [facility] unit/L [facility] Total 1.1 0.2 - 1.3 [facility] Bilirubin mg/dL [facility] Bili, Direct 0.2 0.0 - 0.3 [facility] mg/dL [facility] Specimen Anatomical Collection Method Collection Time Receive d Time (Source) Location / / Volume Laterality Blood 12/09/2021 6:18 AM 2 6:33 EDT AM EDT Resulting Agency Comment Spec In Lab Iker Cuevas MD CHEMISTRY ORDERABLES Performing Organization Address City/[facility]/ZIP [facility] [place] [address] (ABNORMAL) BMP w/fasting Glucose (12/09/2021 6:18 AM EDT) athologist Signature Glucose 235 (H) 65 - 99 [facility] Fasting mg/dL [facility] Comment: ?Fasting* Glucose Interpretive C [...] of Diabetes Mellitus, Position Statement from the [place] Diabetes [employer]. ??Diabete s Care, Volume 33, Supplement 1, Jul 2009 BUN 49 (H) 10 - 20 mg/dL [facility] Creatinine 1.33 0.80 - 1.50 mg/dL [facility] Sodium 139 135 - 145 [...] LABORATORY Calcium 8.8 8.5 - 10.5 mg/dL [facility] Estimated GFR 52 (L) >=60 mL/min/1.73 m?? [facility] Comment: This patient? s [...] Address City/State/ZIP Code Phon e Number [address] Magnesium (12/09/2021 6:18 AM EDT) athologist Signature Magnesium 0.81 0.69 - 1.07 [facility] mmol/L [facility] Specimen Anatomical Collection Method Collection Time Receive d Time (Source) Location / / Volume Laterality Blood 12/09/2021 6:18 AM 2 6:33 EDT AM EDT Resulting Agency Comment Spec In Lab Iker Cuevas MD CHEMISTRY ORDERABLES Performing Organization Address City/[facility] [place] [address] (ABNORMAL) Troponin (12/09/2021 6:18 AM EDT) athologist Signature Troponin-T 1.13 (H) 0.00 - [facility] 0.00 ng/mL [facility] Comment: The 99th percentile for Troponin T is le ss than 0.01 ng/mL, any detectable cTnT concentration using this assay should be considered elevated. According to the third universal definit ion of myocardial infarction the following criteria with a clinical prese ntation consistent with acute myocardial ischemia meets the diagnosis for a myocardial infarction (MO). Detection of a rise and/or fall of [...] additional sample may be indicated. Reference: Third [place] Definition of Myocardial Infarction. Journal of the [place] College of [employer]iology 2012;60:1581-98 Specimen Anatomical Collection Method Collection Time Receive d Time (Source) Location / / Volume Laterality Blood 12/09/2021 6:18 AM 6:33 EDT AM EDT Resulting Agency Comment Spec In Lab Iker Cuevas MD CHEMISTRY ORDERABLES Performing Organization Address City/State/ZIP Code Phon e Number [place] [id number]OS[address] LAB[address] Drive XR Chest One View [...] who have questions please contact the health foster care case manager that requested your imaging first. ? Narrative [...] ho have questions please contact the health foster care case manager that requested your imaging first. Amber Sanches MD IMG DX ORDERABLES (ABNORMAL) BLOOD GAS 2 ARTERIAL (12/09/2021 5:14 AM EDT) Analysis Performed At [facility] Time Signature pH Art 7.43 7.35 - [facility] 7.45 [facility] pCO2 Art 36 35 - 45 [facility] LABORATORY pO2 Art 67 (L) 85 - 104 [facility] LABORATORY HCO3 Art 23.4 20.0 - [facility] 26.0 [facility] mmol/L [facility] LABORATORY BE Art -0.9 -3.0 - 3.0 [facility] mmol/L [facility] Hgb Blood Gas 13.2 (L) 13.7 - [facility] 16.5 g/dL [facility] O2HB Art 91.3 (L) 94.0 - [facility] 97.0 % [facility] COHB Art 0.4 % [facility] Comment: Nonsmokers: 0.5-1.5% COHB Smokers: Variable, but usually less than 10% Toxic: 20-30% COHB Lethal: Greater than 60% COHB METHB Art 0.4 <=1.5 % [facility]ORY Na Whole Blood 138 135 - 145 mmol/L [facility] K Whole Blood 4.1 3.5 - 5.0 mmol/L [facility] Comment: Please note: Patients with WBC >100,000 may have falsely elevated Potassium levels. Contact the Clinical Chemistry L aboratory if there are any questions. ICa Whole Blood 1.09 (L) 1.15 - 1.33 mmol/L [facility] [...] WB 2.7 (H) 0.5 - 2.2 mmol/L [facility] LABORATORY FIO2 Art 35 % [facility] Flow Art 8.0 LPM [facility] PF Ratio Art 191 [facility] LABORATORY Specimen Anatomical Collection Method Collection Time Receive d Time (Source) Location / / Volume Laterality Blood 12/09/2021 5:14 AM 5:14 EDT AM EDT Iker Cuevas MD CHEMISTRY ORDERABLES Performing Organization Address City/State/ZIP [place] [address] POCT Glucose (12/09/2021 4:46 AM EDT) athologist Signature POC Glucose 198 65 - 199 [facility] mg/dL [facility] Comment: Supplemental ranges: <140 mg/dL before meals <180 mg/dL all other times of the day Specimen Anatomical Collection Method Collection Time Receive d Time (Source) Location / / Volume Laterality Blood 12/09/2021 4:46 AM 2 4:46 EDT AM EDT Iker Cuevas MD POINT OF CARE TEST ORDERABLE S Performing Organization Address City/[facility]/ZIP [place] [address] (ABNORMAL) POCT Glucose (12/09/2021 3:01 AM EDT) athologist Signature POC Glucose 225 (H) 65 - 199 [facility] mg/dL [facility] Comment: Supplemental ranges: <140 mg/dL before meals <180 mg/dL all other times of the day Specimen Anatomical Collection Method Collection Time Receive d Time (Source) Location / / Volume Laterality Blood 12/09/2021 3:01 AM 2 3:01 EDT AM EDT Iker Cuevas MD POINT OF CARE TEST ORDERABLE S Performing Organization Address City/[facility]/ZIP [place] [address] (ABNORMAL) POCT Glucose (12/08/2021 10:55 PM EDT) athologist Signature POC Glucose 327 (H) 65 - 199 [facility]YAN mg/dL [facility] Comment: Supplemental ranges: <140 mg/dL before meals <180 mg/dL all other times of the day Specimen Anatomical Collection Method Collection Time Receive d Time (Source) Location / / Volume Laterality Blood 12/08/2021 10:55 12/08/2021 PM EDT 10:55 PM EDT Iker Cuevas MD POINT OF CARE TEST ORDERABLE S Performing Organization Address City/State/ZIP [place] [address] Heparin (unfractionated) Level (12/08/2021 10:03 PM EDT) athologist Signature Heparin UFH 0.18 IU/mL [facility] LABORATORY Comment: Heparin (anti-Xa) levels should be [...] Organization Address City/State/ZIP [place] [address] (ABNORMAL) Troponin (12/08/2021 10:03 PM EDT) athologist Signature Troponin-T 0.92 (H) 0.00 - [facility] 0.00 ng/mL [facility] Comment: The 99th percentile for Troponin T is le ss than 0.01 ng/mL, any detectable cTnT concentration using this assay should be considered elevated. According to the third universal definit ion of myocardial infarction the following criteria with a clinical prese ntation consistent with acute myocardial ischemia meets the diagnosis for a myocardial infarction (MO). Detection of a rise and/or fall of [...] additional sample may be indicated. Reference: Third Winigan Definition of Myocardial Infarction. Journal of the [employer] College [employer]iology 2012;60:1581-98 Specimen Anatomical Collection Method Collection Time Receive d Time (Source) Location / / Volume Laterality Blood 12/08/2021 10:03 12/08/2021 PM EDT 10:31 PM EDT Resulting Agency Comment Spec In Lab Iker Cuevas MD CHEMISTRY ORDERABLES Performing Organization Address City/[facility]/ZIP [place] [address] (ABNORMAL) POCT Glucose (12/08/2021 8:22 PM EDT) athologist Signature POC Glucose 429 (H) 65 - 199 [facility] mg/dL [facility] LABORATORY Comment: Supplemental ranges: <140 mg/dL before meals <180 mg/dL all other times of the day Specimen Anatomical Collection Method Collection Time Receive d Time (Source) Location / / Volume Laterality Blood 12/08/2021 8:22 PM 8:22 EDT PM EDT Iker Cuevas MD POINT OF CARE TEST ORDERABLE S Performing Organization Address City/State/ZIP [place] [address] (ABNORMAL) POCT Glucose (12/08/2021 7:06 PM EDT) P athologist Signature POC Glucose 442 (H) 65 - 199 [facility] mg/dL [facility] LAB[facility]ORY Comment: Supplemental ranges: <140 mg/dL before meals <180 mg/dL all other times of the day Specimen Anatomical Collection Method Collection Time Receive d Time (Source) Location / / Volume Laterality Blood 12/08/2021 7:06 PM 2 7:06 EDT PM EDT Iker Cuevas MD POINT OF CARE TEST ORDERABLE S Performing Organization Address City/State/ZIP Code Phon e Number [address] Magnesium (12/08/2021 6:02 PM EDT) athologist Signature Magnesium 0.86 0.69 - 1.07 [facility] mmol/L [facility] LABORATORY Specimen Anatomical Collection Method Collection Time Receive d Time (Source) Location / / Volume Laterality Blood 12/08/2021 6:02 PM 2 6:36 EDT PM EDT Resulting Agency Comment Spec In Lab Iker Cuevas MD CHEMISTRY ORDERABLES Performing Organization Address City/[facility]/ZIP [place] [address] (ABNORMAL) Basic Metabolic Panel (non-fasting) (12/08/2021 6:02 PM EDT) athologist Signature Glucose Lvl 392 (H) 65 - 199 [facility] mg/dL [facility] LABOR[facility]ORY Comment: Diabetes: >=200 mg/dL plus symp toms BUN 41 (H) 10 - 20 mg/dL [facility] LABORATORY Creatinine 1.44 0.80 - 1.50 mg/dL [facility] LABORATORY Sodium 138 135 - 145 [...] 107 mmol/L [facility] LABORATORY CO2 20 (L) 22 - 31 mmol/L [facility] LABORATORY Anion Gap 16 (H) 5 - 15 mmol/L [facility] LABORATORY Calcium 8.6 8.5 - 10.5 mg/dL [facility] LABORATORY Estimated GFR 47 (L) >=60 mL/min/1.73 m?? [facility] LABORATORY Comment: This patient? s [...] Organization Address City/State/[place] [address] (ABNORMAL) Differential, Automated (12/08/2021 6:02 PM EDT) [facility] Method Time Signature Neutrophils % 89.5 % [facility] LABORATORY Neutr Abs (ANC) 13.97 (H) 1.70 - [facility] 6.10 [facility] x10(3)/[facility] L LABORATORY Lymphocytes % 3.7 % [facility] LABORATORY Lymphocytes Abs 0.6 (L) 0.9 - 3.2 [facility] x10(3)/[facility] LABORATORY Monocytes % 6.1 % [facility] LABORATORY Monocyte Abs 1.0 (H) 0.3 - 0.9 [facility] x10(3)/[facility] LABORATORY Eosinophils % 0.0 % [facility] LABORATORY Eosinophils Abs 0.0 0.0 - 0.4 [facility] x10(3)/[facility] LABORATORY Basophils % 0.2 % [facility] LABORATORY Basophils Abs 0.0 0.0 - 0.1 [facility] x10(3)/[facility] LABORATORY Immature Gran % 0.50 % [...] Gran Abs 0.08 (H) 0.00 - 0.04 x10(3)/[facility] LABORATORY Specimen Anatomical Collection Method Collection Time Receive d Time (Source) Location / / Volume Laterality Blood 12/08/2021 6:02 PM 6:36 EDT PM EDT Resulting Agency Comment Spec In Lab Morgan BROWN HEMATOLOGY ORDERABLES Performing Organization Address City/State/ZIP [place] [address] (ABNORMAL) Hemogram (12/08/2021 6:02 PM EDT) Analysis Performed At Patho logist Time Signature WBC 15.6 (H) 4.0 - 9.5 [facility] x10(3)/[facility] LABORATORY RBC 4.05 (L) 4.58 - [facility] 5.54 [facility] x10(6)/[facility] LABORATORY Hemoglobin 11.8 (L) 13.7 - [facility] 16.5 g/dL [facility] LABORATORY Hematocrit 35.8 (L) 40.5 - [facility] 48.5 % [facility] LABORATORY MCV 88.4 82.9 - [facility] 93.1 [facility] LABORATORY MCH 29.1 27.5 - [facility] 32.1 pg [facility] LABORATORY MCHC 33.0 32.0 - [facility] 35.7 g/dL [facility] LABORATORY Platelets 178 145 - 357 [facility] x10(3)/[facility] LABORATORY RDWSD 49.3 (H) 36.0 - [facility] 45.0 [facility] RDWCV 15.1 (H) 11.4 - [facility] 13.8 % [facility] LABORATORY MPV 10.4 7.6 - 12.9 [facility] LABORATORY nRBC % Auto 0.0 % [facility] LABORATORY nRBC Abs Auto 0.000 0.000 - [facility] 0.000 [facility] x10(3)/[facility] LABORATORY Specimen Anatomical Collection Method Collection Time Receive d Time (Source) Location / / Volume Laterality Blood 12/08/2021 6:02 PM 6:36 EDT PM EDT Resulting Agency Comment Spec In Lab Morgan BROWN HEMATOLOGY ORDERABLES Performing Organization Address City/State/[place] [address] (ABNORMAL) Troponin (12/08/2021 6:02 PM EDT) P athologist Signature Troponin-T 0.89 (H) 0.00 - [facility] 0.00 ng/mL [facility] LABORATORY Comment: The 99th percentile for Troponin T is le ss than 0.01 ng/mL, any detectable cTnT concentration using this assay should be considered elevated. According to the third universal definit ion of myocardial infarction the following criteria with a clinical prese ntation consistent with acute myocardial ischemia meets the diagnosis for a myocardial infarction (MO). Detection of a rise and/or fall of [...] additional sample may be indicated. Reference: Third Win[place] Definition of Myocardial Infarction. Journal of the [place] College of Cardiology 2012;60:1581-98 Specimen Anatomical Collection Method Collection Time Receive d Time (Source) Location / / Volume Laterality Blood 12/08/2021 6:02 PM 6:36 EDT PM EDT Resulting Agency Comment Spec In Lab Iker Cuevas MD CHEMISTRY ORDERABLES Performing Organization Address City/State/ZIP [place] [address] COVID-19 PCR (12/08/2021 5:00 PM EDT) [facility] Method Time Signature SARS-CoV-2 Not Detected Not Detected [facility] RNA PCR [facility] LABORATORY Comment: This result should be interpreted [...] using the Simplexa COVID-19 Direct Assay by [email or web address] as authorized by the FDA issued Emergency [...] clinical management guidance information are available at [facility] CDC Coronavirus Disease 2019 (COVID-19) webpage under Information fo r Healthcare Professionals (https://www.cdc.gov/coronavirus/2019-nc ov/hcp/index.html). Additional information about this and ot her EUA tests can be found in provider and patient fact sheets at the following FDA website: https://www.fda.gov/medical-devices/jmuzufdjflp-fexorab-0147-wlkst-85-rshamlnxw- iyv-aaxnrmhafzujvh-kdrckyc-devices/gaugh-mmgmnqpqrvv-awdf SARS-CoV-2 Source MOTOR VEHICLE LICENCE EXAMINER Swab [facility] LABORATORY Specimen (Source) Anatomical Collection Method Collection Time Re ceived Time Location / / Volume Laterality Nasopharyngeal Swab 12/08/2021 5:00 12/08 PM EDT 6:03 PM EDT Comment: Symptoms->Surveillance Resulting Agency Comment Spec In Lab Iker Cuevas MD MICROBIOLOGY - GENERAL ORDER [place] Performing Organization Address City/State/[place] [address] EKG 12 Lead (12/08/2021 4:40 PM EDT) Component Value Ref Range Test Analysis Performed Pathologis t Method Time At Signature Ventricular rate 78 BPM MUSE SYSTEM Atrial Rate 78 BPM MUSE SYSTEM P-R Interval 152 ms MUSE SYSTEM QRS Duration 96 ms MUSE SYSTEM Q-T Interval 396 ms MUSE SYSTEM QTC Calculated 451 ms MUSE SYSTEM (Bezet) Calculated P [place] 44 degrees MUSE SYSTEM Calculated R [place] -31 degrees MUSE SYSTEM Calculated T [place] 124 degrees MUSE SYSTEM INTERPRETATION Normal sinus [...] POC Glucose 400 (H) 65 - 199 [facility] mg/dL [facility] LABORATORY Comment: Supplemental ranges: <140 mg/dL before meals <180 mg/dL all other times of the day Specimen Anatomical Collection Method Collection Time Receive d Time (Source) Location / / Volume Laterality Blood 12/08/2021 4:34 PM 2 4:34 EDT PM EDT Iker Cuevas MD POINT OF CARE TEST ORDERABLE S Performing Organization Address City/State/ZIP [place] [address] documented in this encounter [...] Given 11/23 10:30 AM EDT 300 mcg (GLUE JOINTER FEEDER) ONCE PRN, Starting on Wed12/10/21 at 1030, [...] DO NOT CRUSH OR OPEN, Routine 1230 ([facility] Unhold - Provider: Admin Adt) polyethylene glycoL (Miralax) packet 17 g 0805 (SEP Ho ld - Provider: Admin Adt - Reason: Transfer to a Procedural area)0900 (Not Given - Provider: Emma Garcia RN - Reason: Transfer to a Procedural area)1230 ([facility] Unhold - Provider: Admin Adt) 0844 [...] Sean ine 0.9) flush 5 mL 0805 ([facility] Hold - Provider: Admin Adt - Reason: Transfer to a Procedural area)0900 (Not Given - Provider: Emma Garcia RN - Reason: Transfer to a Procedural area)1230 ([facility] Unhold - Provider: Admin Adt)1746 (Given [...] 12/12/2021 acetaminophen (Tylenol) tablet 650 mg 08 ([facility] Hold - Provider: [...] Routine bisacodyL (Dulcolax) suppository 10 mg 08 ([facility] Hold - Provider: Admin Adt - Reason: Transfer to a Procedural area)1230 ([facility] Unhold - Provider: Admin Adt) 10 mg, Rectal, DAILY PRN, Starting on e 12/09/21 at 1629, Until Wed12/12/21 at 1312, Constipation, Routine dextrose 10% infusion(Linked Group 2) 08 ([facility] Hold - Provider: [...] (Intra-Procedure), Routine niCARdipine (Cardene) (100 mcg/mL) dilution (GLUE JOINTER FEEDER) (CANCELED) 1030 (Given - Provider: Vitaliy Nobles MD) ONCE PRN, Starting on Wed12/10/21 at 103 0, Until Wed12/10/21 at 1230, Intra- Operative (Intra-Procedure), Routine nitroGLYcerin (Nitrostat) disintegrating tablet 0.4 mg 804 ([facility] Hold - Provider: Admin Adt - Reason: Transfer to a Procedural area)123 ([facility] Unhold - Provider: Admin Adt) 0.4 [...] mg per tablet 1 tab let 804 ([facility] Hold - Provider: Admin Adt - Reason: Transfer to a Procedural area)123 ([facility] Unhold - Provider: Admin Adt) 1 tablet, Oral, 2 TIMES DAILY PRN, Start ing on Wed12/09/21 at 1628, Until Wed12/12/21 at 1312, Constipation, Routine sodium chloride 0.9 % (flush) (BD PosiFlush Normal Sean ine 0.9) flush 5-20 mL 804 ([facility] Hold - Provider: Admin Adt - Reason: Transfer to a Procedural area)123 ([facility] Unhold - Provider: Admin Adt) 5-20 [...] episode. & nbsp; For persistent hypoglycemia, con supervisor cook house longer-acting treatment for the duration of the [...]
Routine documented in this encounter Care Teams Picture Hanger Relationship Specialty Start Date End Date Lovely Vicente MD PCP - General 04/16/[address] [place] [address] [address] [place] [address] documented as of this encounter
--- OUTSIDE RECORDS SUMMARY | 2022-02-23 08:52 | XMS_ITS | Encounter Summary ---
:1945 Author Organization [facility] [place] [address] Care Team Providers Name Role Phone Lovely Vicente MD Primary Care Provider Encounter Details Date Type Department Care Team Description 07/28/2019 [place] [facility]ette Maxwell Chronic systolic heart failu re; [facility] A, STACIE ASHD (arteriosclerotic heart disease); Drive [facility] S/P CABG x 3; [place], [place] MARIA VICTORIA (obstructive sleep apnea) on CPAP; [phone] CARDIOLOGY Mixed hyperlipidemia [phone] [place], [place] [address] Social History Tobacco Use Types [...] in this encounter Progress Notes Danette Maxwell, ROCK CUTTER - 07/28/2019 9:40 AM EST Images from [...] regurgitation present. 07/07/2019 - 07/21/2019 [facility] Safety And Environment Manager The patient had a minimum heart [...] K+ 4.5 today 6. Post-op atrial fibrillation [id number] 7 (CHF, HTN, DM, vascular disease, thromboembolism) Amiodarone discontinued Continue coumadin INR managed by PCP 7. PAD 08/06/2017: Right 1st, 2nd, 3rd toe amputation 08/11/2017: Left??femoral arterial access, RLE??angiogram, Balloon angioplasty of R PT with Eleazar 2.5 x 80 10/25/2017: right popliteal-pedal bypass at [facility] 8. Hypothyrodism S/p thyroidectomy for goiter [...] advised: Refer to EP (Dr. Mcelroy in [place]) 5. Heart Failure Clinic follow up scheduled for: 3 months with proBNP and BMP Danette Maxwell APRN 07/28/2019 documented in this encounter Plan of Treatment Upcoming Encounters Date Type Specialty Care Team Description 03/26/2022 Office Visit Cardiology Vitaliy Nobles MD [facility] [place] [address] (Wo rk) documented as of this encounter Results (ABNORMAL) Basic Metabolic Panel (non-fasting) (07/28/2019 8:36 AM EST) athologist Signature Glucose Lvl 153 65 - 199 [facility] mg/dL [facility] LABORATORY Comment: Diabetes: >=200 mg/dL plus [...] mg/dL [facility] LABORATORY Estimated GFR 70 >=60 mL/min/1.73 m?? [facility] LABOR[facility] Comment: The eGFR was calculated using the CKD-EP I equation. As with all creatinine based estimates of kidney function, eGFR values calculated with the CKD-EPI equation are not accurate in patients wi th acute kidney failure, extremes of body mass or the acutely ill. http://[employer]/DHMCnkf eGFR 81 >=60 mL/min/1.73 m?? [facility] Comment: The eGFR was calculated using the CKD-EP I equation. As with all creatinine based estimates of kidney function, eGFR values calculated with the CKD-EPI equation are not accurate in patients wi th acute kidney failure, extremes of body mass or the acutely ill. http://[employer]/DHMCnkf Specimen Anatomical Collection Method Collection Time Receive d Time (Source) Location / / Volume Laterality Blood specimen 07/28/2019 8:36 AM 020 8:46 (specimen) EST AM EST Resulting Agency Comment Spec In Lab Danette Gomes Hans STACIE CHEMISTRY ORDERABLES Performing Organization Address City/[facility]/[place] [address] (ABNORMAL) pro-Brain Natriuretic Peptide [...] Hans QUINONES CHEMISTRY ORDERABLES Performing Organization Address City/[facility]/ZIP [facility] [place] [address] documented in this encounter Visit Diagnoses Diagnosis Chronic systolic heart failure ASHD (arteriosclerotic heart disease) Coronary atherosclerosis of unspecified type of vessel, port gamble or graft S/P CABG x 3 Postsurgical aortocoronary bypass status MARIA VICTORIA (obstructive sleep apnea) on CPAP Obstructive sleep apnea (adult) (pediatr ic) Mixed hyperlipidemia documented in this encounter Care Teams Lens Edge Grinder Machine Relationship Specialty Start Date End Date Lovely Vicente MD PCP - General 04/16/[address] [place] [address] documented as of this encounter
--- OUTSIDE RECORDS SUMMARY | 2022-02-23 08:52 | XMS_ITS | Encounter Summary ---
:1945 Author Organization [facility] [place] [address] Care Team Providers Name Role Phone Lovely Vicente MD Primary Care Provider Encounter Details Date Type Department Care Team Description 04/16/2021 Laboratory Appointment Lab 3L [facility] systolic [facility] [place] [id number] Social History Tobacco Use Types Packs/Day Years [...] Nobles MD [facility] ER CARDIOLOGY [place], [place] [address] (Wo rk) documented as of [...] athologist Signature ProBNP 523 (H) <=124 pg/mL [facility] LABORATORY Specimen Anatomical Collection Method Collection Time Receive d Time (Source) Location / / Volume Laterality Blood 04/16/2021 9:58 AM EDT 10:02 AM EDT Resulting Agency Comment Spec In Lab Zulma Plunkett MD CHEMISTRY ORDERABLES Performing Organization Address City/State/[place] [address] (ABNORMAL) Basic Metabolic Panel (non-fasting) (04/16/2021 9:58 AM EDT) athologist Signature Glucose Lvl 77 65 - [address] [facility] mg/dL [facility] LABORATORY Comment: Diabetes: >=200 mg/dL plus symp toms BUN 23 (H) 10 - 20 mg/dL [facility] LABORATORY Creatinine 1.26 0.80 - 1.50 mg/dL [facility] [...] estions. Chloride 103 98 - 107 mmol/L [facility] LABORATORY CO2 28 22 - 31 mmol/L [facility] Anion Gap 9 5 - 15 mmol/L [facility] LABOR[facility]ORY Calcium 9.3 8.5 - 10.5 mg/dL [facility] LABORATORY Estimated GFR 55 (L) >=60 mL/min/1.73 m?? [facility] [...] Organization Address City/State/Z[place] [address] documented in this encounter Visit Diagnoses Diagnosis Chronic systolic heart failure documented in this encounter Care Teams Drafter Castings Relationship Specialty Start Date End Date Lovely Vicente MD PCP - General 04/16/[address] [place] [address] documented as of this encounter
--- OUTSIDE RECORDS SUMMARY | 2022-02-23 08:52 | XMS_ITS | Encounter Summary ---
:1945 Author Organization [facility] [place] [address] Care Team Providers Name Role Phone Lovely Vicente MD Primary Care Provider Encounter Details Date Type Department Care Team Description 12/07/2021 Telephone Cardiology Eddi Briceño Jr., [facility] [place] [address] [facility] [phone] CARDIOLOGY DEPT [place], [place] [address] (Wo rk) Social History Tobacco [...] [facility] Referring Provider: Marisela Dean, DIRECTOR OF ADMISSIONS [address] [place] [address] Don Veda Kushal 76 y.o. w / [...] bpm, LAFB, poor R wave progression, septal W[place], and lateral STD, overall no significantchange from [...] Cardiology Vitaliy Nobles MD [facility] [address] [place], [place] [address] (Wo rk) documented as of this encounter Visit Diagnoses Not on filedocumented in this encounter Care Teams Store Consultant Relationship Specialty Start Date End Date Lovely Vicente MD PCP - General 04/16/[address] [place] [address] documented as of this encounter
--- OUTSIDE RECORDS SUMMARY | 2022-02-23 08:53 | XMS_ITS | Encounter Summary ---
:1945 Author Organization [facility] [address] Care Team Providers Name Role Phone Lovely Vicente MD Primary Care Provider Reason for Visit Reason Comments Follow-up I'm having trouble with the VAC Encounter Details Date Type Department Care Team Description 08/26/2017 Office Visit Vascular Surgery at [facility], STEPHANIE Mercado Atheroembolism of foot, right; [facility] [address] Delayed surgical wound healing, initial encounter; [facility] VASCULAR SURG YEHUDA Acute on chronic systolic congestive hea rt failure ; [place], [place]ic [place] [address] [phone] Social History Tobacco Use Types Packs/Day Years [...] home and into the care of the [facility]. However, since discharge from [facility] he has had some [...] SETUP performed by Manny Mcknight MD at [facility] MAIN OR ??? PRO AMPUTATION FOOT, TRANSMETATARSAL Right 08/09/2017 AMPUTATION, TRANSMETATARSAL (WRVU 12.71) performed by Yonathan Smith MD at [facility] MAIN OR ??? PRO CABG, ARTERIAL, SINGLE N/A 07/07/2017 @CABG, USING ARTERIAL GRAFT;SINGLE ARTERIAL GRAFT (WRVU 33.75) performed by Yuan Retana MD at [facility] MAIN OR ??? PRO CABG, ARTERY-VEIN, TWO N/A 07/07/2017 @CABG, TWO VENOUS GRAFTS & ARTERIAL GRAFT (WRVU 7.93) performed by Yuan Retana MD at [facility] MAIN OR ??? PRO COLONOSCOPY, REMV LESN, SNARE 01/16/2014 COLONOSCOPY, POLYPECTOMY, REMOVAL LESION BY SNARE performed by Nohemi Jaimes MD at [facility] ENDOSCOPY ??? PRO DRESSING CHANGE UNDER ANESTHESIA Right 08/11/2017 (MSURG) DRESSING CHANGE (FOR OTHER THAN IVAN) UNDER ANES. (WRVU 0.86) performed by Lamar Smith MD at [facility] MAIN OR ??? PRO ENDOSCOPY W/VIDEO-ASST VEIN HARVEST, CABG Right 07/07/2017 ENDOSCOPIC HARVEST VEIN(S) FOR CABG (WRVU 0.31) performed by Yuan Retana MD at [facility] MAIN OR ??? PRO THYROIDECTOMY 03/28/2013 THYROIDECTOMY, TOTAL OR COMPLETE performed by Manny Mcknight MD at [facility] MAIN OR Social Hx: Social [...] Vitaliy Nobles MD [facility] CARDIOLOGY [place], [place] [address] (Wo rk) documented as of [...] [facility] Range Method Time Signature VB Text Department: Vascular Surgery Lab VASCUBASE Report Patient: [id number] (GREGORY HOANG) CPT: 60960 ICD10: T81.89XA;I75.021 Referring Physician: ARIK BLOOM ?? [...] Signature Glucose Lvl 98 65 - 199 [facility] mg/dL [facility] Comment: Diabetes: >=200 mg/dL plus symp toms BUN 20 10 - 20 mg/dL [facility] Creatinine 1.17 0.80 - 1.50 mg/dL [facility] [...] estions. Chloride 98 98 - 107 mmol/L [facility] CO2 28 22 - 31 mmol/L [facility] Anion Gap 14 5 - 15 mmol/L [facility] Calcium 9.1 8.5 - 10.5 mg/dL [facility] Estimated GFR >60 >=60 [facility] Comment: The reported eGFR should be multiplied b y 1.2 for patients. The MDRD is not an appropriate measure o f renal function for patients with body mass extremes or in patients with acute kidney failure. http://[employer].Box/DHnkdep http://quietrevolution/DHMCnkf Specimen Anatomical Collection Method Collection Time Receive d Time (Source) Location / / Volume Laterality Blood specimen 08/26/2017 2:00 PM 018 2:15 (specimen) EST PM EST Resulting Agency Comment Spec In Lab Danette Maxwell APRN CHEMISTRY ORDERABLES Performing Organization Address City/[facility]/[place] [address] (ABNORMAL) pro-Brain Natriuretic Peptide (08/26/2017 2:00 PM EST) P athologist Signature ProBNP 2,373 (H) <=125 [facility] pg[facility]mL [facility] Specimen Anatomical Collection Method Collection Time Receive d Time (Source) Location / / Volume Laterality Blood specimen 08/26/2017 2:00 PM 018 2:15 (specimen) EST PM EST Resulting Agency Comment Spec In Lab Danette Maxwell APRN CHEMISTRY ORDERABLES Performing Organization Address City/State/[place] [address] documented in this encounter Visit Diagnoses Diagnosis Atheroembolism of foot, right Delayed surgical wound healing, initial encounter Acute on chronic systolic congestive hea rt failure Acute on chronic systolic heart failure Ischemic cardiomyopathy Other specified forms of chronic ischemi c heart disease documented in this encounter Care Teams Ethylbenzene Converter Operator Relationship Specialty Start Date End Date Lovely Vicente MD PCP - General 04/16/[address] [place] [address] documented as of this encounter
--- OUTSIDE RECORDS SUMMARY | 2022-02-23 08:53 | XMS_ITS | Encounter Summary ---
:1945 Author Organization [facility] [address] Care Team Providers Name Role Phone Lovely Vicente MD Primary Care Provider Encounter Details Date Type Department Care Team Description 09/06/2017 Telephone Vascular Surgery at [facility] Ninfa Clark, [place] [address] Social History Tobacco Use Types Packs/Day [...] Visit Cardiology Vitaliy Nobles MD [facility] ER CARDIOLOGY [place], [place] [address] (Wo rk) documented as of this encounter Visit Diagnoses Not on filedocumented in this encounter Care Teams Director Motion Picture Relationship Specialty Start Date End Date Lovely Vicente MD PCP - General 04/16/[address] [place] [address] documented as of this encounter
--- OUTSIDE RECORDS SUMMARY | 2022-02-23 08:53 | XMS_ITS | Encounter Summary ---
:1945 Author Organization [facility] [place] [address] Care Team Providers Name Role Phone Lovely Vicente MD Primary Care Provider Reason for Visit Reason Onset Date Comments VNA Calls 08/30/2017 Encounter Details Date Type Department Care Team Description 08/30/2017 Telephone Vascular Surgery at [facility] Cora Reid RN VNA Calls [facility] [place] [address] Social History Tobacco Use Types Packs/Day [...] 08/30/2017 11:16 AM EST Caller: Alfonso at [facility] [phone] Reason for call: Changing his wound vac [...] Alfonso who had been in contact with [facility]'s Wound Care Nurse who advised him [...] Vitaliy Nobles MD [facility] ER CARDIOLOGY [place], [place] [address] (Wo rk) documented as of this encounter Visit Diagnoses Not on filedocumented in this encounter Care Teams Ward Clerk Relationship Specialty Start Date End Date Lovely Vicente MD PCP - General 04/16/[address] [place] [address] documented as of this encounter
--- OUTSIDE RECORDS SUMMARY | 2022-02-23 08:53 | XMS_ITS | Encounter Summary ---
:1945 Author Organization [facility] Address [facility] [place] [address] Care Team Providers Name Role Phone Lovely Vicente MD Primary Care Provider Encounter Details Date Type Department Care Team Description 10/07/2017 Office Visit Cardiology at [facility] Danette Maxwell Chronic systolic heart failu re; [facility] A, COP BREAKER S/P CABG x 3; Drive [facility] On amiodarone therapy; [place], [place] Atrial fibrillation, unspecified type; [id number] CARDIOLOGY ASCVD (arteriosclerotic cardiovascular d isease) [phone] [place], [place] [address] Social History Tobacco Use Types [...] - documented in this encounter Progress Notes [place] Danette A, COP BREAKER - 10/07/2017 11:20 AM EDT ID and [...] painful and swollen right foot right d/t 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 Espino On IV antibiotics at [facility] Today: Mr. Fatima is [...] continue to see Dr. Bains well at [facility] and follow his wound on his right lower extremity. And she will continue to direct antibiotic treatment. Ihave asked that the echocardiogram results be faxed to Dr. Zurita at [facility]. 1. ASCVD Continue ASA, BB and [...] and bone removal by Dr. Aguero at [facility]. Currently receiving IV antibiotics at [facility] ? Plan: 1. A [...] MD [facility] ER [address] TADEO [place], [place] [address] (Wo rk) documented as of this encounter Results (ABNORMAL) Basic Metabolic Panel (non-fasting) (10/07/2017 8:48 AM EDT) athologist Signature Glucose Lvl 99 65 - 199 [facility] mg/dL [facility] Comment: Diabetes: >=200 mg/dL plus symp toms BUN 27 (H) 10 - 20 mg/dL [facility] Creatinine 1.07 0.80 - 1.50 [...] - 15 mmol/L [facility] Calcium 8.4 (L) 8.5 - 10.5 mg/dL [facility] Estimated GFR >60 >=60 [facility] Comment: The reported eGFR should be multiplied b y 1.2 for patients. The MDRD is not an appropriate measure o f renal function for patients with body mass extremes or in patients with acute kidney failure. http://[employer]/DHnkdep http://[employer]/DHMCnkf Specimen Anatomical Collection Method Collection Time Receive d Time (Source) Location / / Volume Laterality Blood specimen 10/07/2017 8:48 AM 018 8:50 (specimen) EDT AM EDT Resulting Agency Comment Spec In Lab Danette Maxwell APRN CHEMISTRY ORDERABLES Performing Organization Address City/[facility]/[place] [address] (ABNORMAL) pro-Brain Natriuretic Peptide (10/07/2017 8:48 AM EDT) P athologist Signature ProBNP 1,170 (H) <=125 [facility] pg/mL [facility] Specimen Anatomical Collection Method Collection Time Receive d Time (Source) Location / / Volume Laterality Blood specimen 10/07/2017 8:48 AM 018 8:50 (specimen) EDT AM EDT Resulting Agency Comment Spec In Lab Danette Maxwell APRN CHEMISTRY ORDERABLES Performing Organization Address City/[facility]/[place] [address] documented in this encounter Visit Diagnoses Diagnosis Chronic systolic heart failure S/P CABG x 3 Postsurgical aortocoronary bypass status On amiodarone therapy Atrial fibrillation, unspecified type ASCVD (arteriosclerotic cardiovascular d isease) Unspecified cardiovascular disease documented in this encounter Care Teams Leasing Associate Relationship Specialty Start Date End Date Lovely Vicente MD PCP - General 04/16/[address] [place] [address] [address] [place] [address] documented as of this encounter
--- OUTSIDE RECORDS SUMMARY | 2022-02-23 08:53 | XMS_ITS | Encounter Summary ---
:1945 Author Organization [facility] [place] [address] Care Team Providers Name Role Phone Lovely Vicente MD Primary Care Provider Encounter Details Date Type Department Care Team Description 09/06/2017 Orders Only Vascular Surgery at [facility] Ninfa Clark, [facility] [place] [address] Social History Tobacco Use Types Packs/Day [...] [facility] ER CARDIOLOGY [place], [place] [address] (Wo rk) documented as of this encounter Visit Diagnoses Not on filedocumented in this encounter Care Teams Materials Planning Manager Relationship Specialty Start Date End Date Lovely Vicente MD PCP - General 04/16/[address] [place], [place] [id number] documented as of this encounter
--- OUTSIDE RECORDS SUMMARY | 2022-02-23 08:53 | XMS_ITS | Encounter Summary ---
:1945 Author Organization [facility] [place] [address] Care Team Providers Name Role Phone Lovely Vicente MD Primary Care Provider Reason for Referral Diagnostic Test (Routine) - Closed Specialty Diagnoses / Procedures Referred By Contact Refer red To Contact Cardiology Diagnoses Ischemic cardiomyopathy Acute on chronic systolic congestive heart failure Danette Maxwell APRN [facility] Non-Inv Card Lab Procedures Echocardiogram Transthoracic(Leb) [facility] [address] [place] [address] Referral ID Status Reason Start Date Expiration Date Visits V isits Requested Authorized [id number] Closed Specialty 08/30/2017 08/30/2018 1 1 Service Requested Reason for Visit Diagnostic Test (Routine) - Closed Specialty Diagnoses / Procedures Referred By Contact Refer red To Contact Cardiology Diagnoses Ischemic cardiomyopathy Acute on chronic systolic congestive heart failure Danette Maxwell APRN [facility] Non-Inv Card Lab Procedures Echocardiogram Transthoracic(Leb) [place] [address] [place] [address] Referral ID Status Reason Start Date Expiration Date Visits V isits Requested Authorized [id number] Closed Specialty 08/30/2017 08/30/2018 1 1 Service Requested Encounter Details Date Type Department Care Team Description 10/07/2017 Hospital Encounter Non-Invasive Ischemic cardiomyopathy; Cardiology Lab Barbara Craig on chronic systolic [place] [address] Social History Tobacco Use Types Packs/Day [...] Vitaliy Nobles MD [facility] ER CARDIOLOGY [place], [place] [address] (Wo rk) documented as of this [...] Mccollum ? (Age): 1945(72y) Med Rec#: ? [id number] ?Sex: ?M ? Site Loc: ? [facility] ?Ht / Wt: ??173(cm)/82(kg) Pt. Loc: ?Echo Lab ?BSA: ?1.96 Study Date: ?? 10/07/2017 ?Pt. Type: Outpatient Tape: ? Referring: Danette Maxwell Reading: Iker Cuevas ([id number]) Entertainment Agent: Yonathan Bocanegra Diagnosis: *ICD-10-PCS Ischemic cardiomyopathy (I2 [...] E-wave Vmax ?1.2 ?m/sec ? MV deceleration [id number] ?msec ? MV A-wave Vmax ?1 ?m/sec [...] ? Mid-Inferior ?Hypokinetic ? Mid-Inferoseptal ?Hypokinetic ? [place]-Septal ? Akinetic ? [place]-Anterior ? Hypokinetic ? [place]-Lateral ?Hypokinetic ? [place]-Inferior ? Hypokinetic ? [place]-Tip ?Akinetic ? This report has been electronically sign ed by: _ Iker Cuevas M.D. ? 10/07/2017 11:12:34 Images reviewed and interpretation verif ied [facility] Cardiac Ultrasound Laboratory Procedure Note Iker Cuevas MD - 10/07/2017Formatti ng of this note might be different from the original. Procedure: Transthoracic Echocardiogram Patient: NATALYA MCBRIDE(Age): [birth year]72y) Med Rec#: [id number] Sex: M Site Loc: [facility] Ht / Wt: 173(cm)/82(kg) Pt. Loc: Echo Lab BSA: 1.96 Study Date: 10/07/2017 Pt. Type: Outpati ent Tape: Referring: Danette Maxwell Reading: Iker Cuevas ([id number]) Entertainment Agent: Yonathan Bocanegra Diagnosis: *ICD-10-PCS Ischemic cardiomyopathy (I2 [...] MV E-wave Vmax 1.2 m/sec MV deceleration [id number] msec MV A-wave Vmax 1 m/sec MV [...] Akinetic Mid-Posterolateral Hypokinetic Mid-Inferior Hypokinetic Mid-Inferoseptal Hypokinetic [place]-Septal Akinetic [place]-Anterior Hypokinetic [place]-Lateral Hypokinetic [place]-Inferior Hypokinetic [place]-Tip Akinetic This report has been electronically sign ed by: Celi Cuevas M.D. 10/07/2017 11:12 :34 Images reviewed and interpretation elvie hwang [facility] Cardiac Ultrasound Laboratory Danette Maxwell STACIE [...] Routine documented in this encounter Care Teams Branch Lead Relationship Specialty Start Date End Date Lovely Vicente MD PCP - General 04/16/[address] [place] [address] documented as of this encounter
--- OUTSIDE RECORDS SUMMARY | 2022-02-23 08:53 | XMS_ITS | Encounter Summary ---
:1945 Author Organization [facility] [place] [address] Care Team Providers Name Role Phone Lovely Vicente MD Primary Care Provider Encounter Details Date Type Department Care Team Description 10/07/2017 Laboratory Appointment Lab 3L [facility] systolic [facility] [place] [address] Social History Tobacco Use Types Packs/Day Years [...] MD [facility] ER CARDIOLOGY [place], [place] [address] (Wo rk) documented as of [...] Lvl 99 65 - 199 [facility] [place] [facility] mg/dL LABORATORY Comment: Diabetes: >=200 mg/dL plus symp toms BUN 27 (H) 10 - 20 mg/dL [facility] Creatinine 1.07 0.80 [...] [facility] Calcium 8.4 (L) 8.5 - 10.5 mg/dL [facility] Estimated GFR >60 >=60 [facility] Comment: The reported eGFR should be multiplied b y 1.2 for patients. The MDRD is not an appropriate measure o f renal function for patients with body mass extremes or in patients with acute kidney failure. http://[employer] People/DHnkdep http://[employer]/DHMCnkf Specimen Anatomical Collection Method Collection Time Receive d Time (Source) Location / / Volume Laterality Blood specimen 10/07/2017 8:48 AM 018 8:50 (specimen) EDT AM EDT Resulting Agency Comment Spec In Lab Danette Maxwell APRN CHEMISTRY ORDERABLES Performing Organization Address City/State/[place] [address] (ABNORMAL) pro-Brain Natriuretic Peptide (10/07/2017 8:48 AM EDT) P athologist Signature ProBNP 1,170 (H) <=125 [facility] pg/mL LABORATORY Specimen Anatomical Collection Method Collection Time Receive d Time (Source) Location / / Volume Laterality Blood specimen 10/07/2017 8:48 AM 018 8:50 (specimen) EDT AM EDT Resulting Agency Comment Spec In Lab Danette Maxwell APRN CHEMISTRY ORDERABLES Performing Organization Address City/State/[place] [address] documented in this encounter Visit Diagnoses Diagnosis Chronic systolic heart failure documented in this encounter Care Teams Slag Expander Relationship Specialty Start Date End Date Lovely Vicente MD PCP - General 04/16/[address] [place] [address] documented as of this encounter
--- OUTSIDE RECORDS SUMMARY | 2022-02-23 08:53 | XMS_ITS | Encounter Summary ---
:1945 Author Organization [facility] [address] Care Team Providers Name Role Phone Lovely Vicente MD Primary Care Provider Reason for Referral Consultation (Routine) - Specialty Diagnoses / Procedures Referred By Contact Refer red To Contact [facility] Diagnoses Atheroembolism of foot, right Delayed surgical wound healing, subsequent encounter Aurelia Rivera PA [address] [facility] [place] [address] Referral ID Status Reason Start Date Expiration Date Visits V isits Requested Authorized [id number] Consult, 09/08/2017 03/07/2018 1 1 Test & Treat Reason for Visit Reason Comments Wound Check My foot hurts Encounter Details Date Type Department Care Team Description 09/07/2017 Office Visit Vascular Surgery at MiguelAurelia PA Atheroembolism of foot, right; [facility] Delayed surgical wound healing, subseque nt encounter [facility] [place] [address] [phone] Social History Tobacco Use Types Packs/Day Years [...] at home for VAC dressing changes from [facility]. Since his last visit his right forefoot wound [facility] better seal with [...] SETUP performed by Manny Mcknight MD at [facility] MAIN OR ??? PRO AMPUTATION FOOT, TRANSMETATARSAL Right 08/09/2017 AMPUTATION, TRANSMETATARSAL (WRVU 12.71) performed by Yonathan Smith MD at [facility] MAIN OR ??? PRO CABG, ARTERIAL, SINGLE N/A 07/07/2017 @CABG, USING ARTERIAL GRAFT;SINGLE ARTERIAL GRAFT (WRVU 33.75) performed by Yuan Retana MD at [facility] MAIN OR ??? PRO CABG, ARTERY-VEIN, TWO N/A 07/07/2017 @CABG, TWO VENOUS GRAFTS & ARTERIAL GRAFT (WRVU 7.93) performed by Yuan Retana MD at [facility] MAIN OR ??? PRO COLONOSCOPY, REMV LESN, SNARE 01/16/2014 COLONOSCOPY, POLYPECTOMY, REMOVAL LESION BY SNARE performed by Nohemi Jaimes MD at [facility] ENDOSCOPY ??? PRO DRESSING CHANGE UNDER ANESTHESIA Right 08/11/2017 (MSURG) DRESSING CHANGE (FOR OTHER THAN IVAN) UNDER ANES. (WRVU 0.86) performed by Lamar Smith MD at [facility] MAIN OR ??? PRO ENDOSCOPY W/VIDEO-ASST VEIN HARVEST, CABG Right 07/07/2017 ENDOSCOPIC HARVEST VEIN(S) FOR CABG (WRVU 0.31) performed by Yuan Retana MD at [facility] MAIN OR ??? PRO THYROIDECTOMY 03/28/2013 THYROIDECTOMY, TOTAL OR COMPLETE performed by Manny Mcknight MD at [facility] OR Social Hx: Social History Substance Use [...] MD [facility] CARDIOLOGY [place], [place] [address] (Wo rk) Scheduled Referrals Name Type Priority Associated Diagnoses Order S chedule Referral to Wound Outpatient Referral Routine Atheroembolism o f foot, Ordered: Clinic right 09/08/2017 Delayed surgical wound healing, subsequent encounter documented as of this encounter Visit Diagnoses Diagnosis Atheroembolism of foot, right Delayed surgical wound healing, subseque nt encounter documented in this encounter Care Teams Regional Vice President Life Sales Relationship Specialty Start Date End Date Lovely Vicente MD PCP - General 04/16/[address] [place] [address] [address] [place] [address] documented as of this encounter
--- OUTSIDE RECORDS SUMMARY | 2022-02-23 08:53 | XMS_ITS | Encounter Summary ---
:1945 Author Organization [facility] [place] [address] Care Team Providers Name Role Phone Lovely Vicente MD Primary Care Provider Reason for Visit Reason Comments Follow-up Encounter Details Date Type Department Care Team Description 08/19/2017 Office Visit Cardiac Surgery at [facility], Jock S/P C ABG (coronary [facility] N, artery bypass graft) [facility] [place] CARDIOTHORACIC [address] SURGERY [phone] [place], [place] [address] Social History Tobacco Use Types [...] office. Best personal regards, Yuan Retana MD [phone] documented in this encounter Plan of Treatment Upcoming Encounters Date Type Specialty Care Team Description 03/26/2022 Office Visit Cardiology Vitaliy Nobles MD [facility] CARDIOLOGY [place], [place] [address] (Wo rk) documented as of [...] 454 ms MUSE SYSTEM (Bezet) Calculated P [place] 20 degrees MUSE SYSTEM Calculated R [place] -29 degrees MUSE SYSTEM Calculated T [place] 121 degrees MUSE SYSTEM INTERPRETATION Normal sinus rhythm MUSE SYSTEM Inferior infarct (cited on or before 25-JAN-2013) Anterior 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) T wave abnormality, consider lateral ischemia Abnormal ECG When compared with ECG of 06-AUG-2017 12:37, No signif icant change was found Confirmed by MD Luci, Taurus Braun ([id number]) on 08/19/2017 1 0:37:38 PM Specimen Anatomical [...] status documented in this encounter Care Teams Harbor Department Manager Relationship Specialty Start Date End Date Lovely Vicente MD PCP - General 04/16/[address] [place] [address] documented as of this encounter
--- OUTSIDE RECORDS SUMMARY | 2022-02-23 08:53 | XMS_ITS | Encounter Summary ---
:1945 [place] [address] Care Team Providers Name Role Phone Lovely Vicente MD Primary Care Provider Encounter Details Date Type Department Care Team Description 08/26/2017 Hospital Encounter Vascular Lab at [facility], Athero embolism of foot, right; [place], [place] Delayed surgi nusrat wound healing, [place] [id number] Social History Tobacco Use Types Packs/Day Years [...] Nobles MD [facility] [place], [place] [address] (Wo rk) documented as of [...] Department: Vascular Surgery Lab VASCUBASE Report Patient: [id number] (DON HOANG) CPT: 17624 ICD10: T81.89XA;I75.021 Referring Physician: ELVER BLOOM ?? [...] encounter documented in this encounter Care Teams Supervisor Dials Relationship Specialty Start Date End Date Lovely Vicente MD PCP - General 04/16/[address] [place] [address] documented as of this encounter
--- OUTSIDE RECORDS SUMMARY | 2022-02-23 08:53 | XMS_ITS | Encounter Summary ---
:1945 Author Organization [facility] [place] [address] Care Team Providers Name Role Phone Lovely Vicente MD Primary Care Provider Encounter Details Date Type Department Care Team Description 10/05/2017 Telephone Cardiology at [facility] Tamiko Sin MD [facility] [place] [address] CARDIOLOGY DEPT [phone] [place], [place] [address] (Wo rk) Social History Tobacco [...] MD [facility] ER DR [place], [place] [address] (Wo rk) documented as of this encounter Visit Diagnoses Not on filedocumented in this encounter Care Teams Wood Pattern Maker Relationship Specialty Start Date End Date Lovely Vicente MD PCP - General 04/16/[address] [place] [address] documented as of this encounter
--- OUTSIDE RECORDS SUMMARY | 2022-02-23 08:53 | XMS_ITS | Encounter Summary ---
:1945 Author Organization [facility] [place] [address] Care Team Providers Name Role Phone Lovely Vicente MD Primary Care Provider Encounter Details Date Type Department Care Team Description 09/07/2017 Office Visit Endocrinology at [facility] Maria Ines Stallings of [facility] [place] [address] CENTER [phone] ENDOCRINOLOGY DEPT [place], [place] [address] Social History Tobacco Use [...] [facility] ER DR TADEO [place], [place] [address] (Wo rk) documented as of this encounter Visit Diagnoses Diagnosis Hx of papillary thyroid carcinoma Personal history of malignant neoplasm o f thyroid documented in this encounter Care Teams Aircraft Pneudraulic Systems Mechanic Relationship Specialty Start Date End Date Lovely Vicente MD PCP - General 04/16/[address] [place] [address] documented as of this encounter
--- OUTSIDE RECORDS SUMMARY | 2022-02-23 08:53 | XMS_ITS | Encounter Summary ---
:1945 Author Organization [facility] [place] [address] Care Team Providers Name Role Phone Lovely Vicente MD Primary Care Provider Encounter Details Date Type Department Care Team Description 08/30/2017 [facility] ischemia [facility] [address] [place], [place] VASCULAR SURGERY [address] [place] [address] [phone] Social History Tobacco Use Types Packs/Day Years [...] Smith MD - 08/30/2017 2:00 PM EST [facility] staff: Patient returns. He is doing well [...] Office Visit Cardiology Vitaliy Nobles MD [facility] CARDIOLOGY [place], [place] [address] (Wo rk) documented as of this encounter Visit Diagnoses Diagnosis Critical lower limb ischemia Unspecified circulatory system disorder documented in this encounter Care Teams Fashion Design Professor Relationship Specialty Start Date End Date Lovely Vicente MD PCP - General 04/16/[address] [place] [address] documented as of this encounter
--- OUTSIDE RECORDS SUMMARY | 2022-02-23 08:53 | XMS_ITS | Encounter Summary ---
:1945 Author Organization [facility] [place] [address] Care Team Providers Name Role Phone Lovely Vicente MD Primary Care Provider Encounter Details Date Type Department Care Team Description 09/16/2017 Hospital [place] [address] Social History Tobacco Use Types Packs/Day [...] Vitaliy Nobles MD [facility] CARDIOLOGY [place], [place] [address] (Wo rk) documented as of this encounter Procedures Procedure Name Priority Date/Time Associated Diagnosis Comme [facility] SURGICAL PATHOLOGY Routine 09/16/2017 7:28 AM Res ults for this REPORT EST procedure are i n the results section. documented in this encounter Results Surgical Pathology Report (09/16/2017 7:28 AM EST) Component Value Ref Test Analysis Performed At [facility] Range Method Time Signature Surgical [id number] ? Location: [facility] Report The signing pathologist has [...] Henrique Flower Verified: ??09/24/2017 ?Pathologist Performed at: ??-[facility] Dept. of Pathology, [place], [place] CLINICAL INFORMATION Specimen Submitted: A - [...] Organization Address City/State/[place] [address] [facility] [address] documented in this encounter Visit Diagnoses Not on filedocumented in this encounter Care Teams Infrastructure Consultant Relationship Specialty Start Date End Date Lovely Vicente MD PCP - General 04/16/[address] [place] [address] documented as of this encounter
--- OUTSIDE RECORDS SUMMARY | 2022-02-23 08:53 | XMS_ITS | Encounter Summary ---
:1945 Author Organization [facility] [place] [address] Care Team Providers Name Role Phone Lovely Vicente MD Primary Care Provider Encounter Details Date Type Department Care Team Description 10/05/2017 Unscheduled Cardiology at [facility] RONNIE Sin PATIENT NOT SEEN Encounter [facility] Tamiko Martinez MD [facility] [address] CARDIOLOGY DEPT [phone] [place] [address] Social History Tobacco Use Types Packs/Day Years [...] Vitaliy Nobles MD [facility] ER DR TADEO [place], [place] [address] (Wo rk) documented as of this encounter Visit Diagnoses Diagnosis DH PATIENT NOT SEEN documented in this encounter Care Teams Mechanical Systems Design Engineer Relationship Specialty Start Date End Date Lovely Vicente MD PCP - General 04/16/[address] [place] [address] documented as of this encounter
--- OUTSIDE RECORDS SUMMARY | 2022-02-23 08:53 | XMS_ITS | Encounter Summary ---
:1945 Author Organization [facility] [place] [address] Care Team Providers Name Role Phone Lovely Vicente MD Primary Care Provider Encounter Details Date Type Department Care Team Description 08/19/2017 Office Visit Vascular Surgery at [place], PAD (peripheral artery [facility] INDUSTRIAL ECOLOGIST disease) [facility] [address] [place], [place] VASCULAR SURGERY [address] [place] [address] [phone] Social History Tobacco Use Types Packs/Day Years [...] Nobles MD [facility] DR CARDIOLOGY [place], [place] [address] (Wo rk) documented as of this encounter Visit Diagnoses Diagnosis PAD (peripheral artery disease) Peripheral vascular disease, unspecified documented in this encounter Care Teams Target Worker Relationship Specialty Start Date End Date Lovely Vicente MD PCP - General 04/16/[address] [place] [address] documented as of this encounter
--- OUTSIDE RECORDS SUMMARY | 2022-02-23 08:53 | XMS_ITS | Encounter Summary ---
:1945 Author Organization [facility] [place] [address] Care Team Providers Name Role Phone Lovely Vicente MD Primary Care Provider Reason for Referral Diagnostic Test (Routine) - Closed Specialty Diagnoses / Procedures Referred By Contact Refer red To Contact Cardiology Diagnoses Ischemic cardiomyopathy Acute on chronic systolic congestive heart failure Danette Maxwell APRN [facility] Non-Inv Card Lab Procedures Echocardiogram Transthoracic(Leb) [facility] [place] [address] [place] [address] Referral ID Status Reason Start Date Expiration Date Visits V isits Requested Authorized [id number] Closed Specialty 08/30/2017 08/30/2018 1 1 Service Requested Encounter Details Date Type Department Care Team Description 08/26/2017 Office Visit Cardiology at [facility] Danette Maxwell Ischemic cardiomyopathy; [facility] STACIE Gomes Acute on chronic systolic congestive hea rt failure ; Drive 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 [...] Cardiology Vitaliy Nobles MD [facility] ER DR CARDIOLOGY [place], [place] [address] (Wo rk) documented as of this encounter Results ECHOCARDIOGRAM COMPLETE W CONTRAST (10/07/2017 10:23 AM EDT) P athologist Signature EF 45 HEARTContentDJ SYSTEM Specimen (Source) Anatomical Location Collection Method / Collectio n Time Received Time / Laterality Volume 10/07/2017 Narrative [facility] - 10/07/2017 11:13 AM ED T Procedure: ?Transthoracic Echocardiogram Patient: ?NATALYA Mccollum ? (Age): 1945(72y) Med Rec#: ? [id number] ?Sex: ?M ? Site Loc: ? [facility] ?Ht / Wt: ??173(cm)/82(kg) Pt. Loc: ?Echo Lab ?BSA: ?1.96 Study Date: ?? 10/07/2017 ?Pt. Type: Outpatient Tape: ? Referring: Danette Maxwell Reading: Iker Cuevas ([id number]) Field Cane Scaler: Yonathan Bocanegra Diagnosis: *ICD-10-PCS Ischemic cardiomyopathy (I2 [...] E-wave Vmax ?1.2 ?m/sec ? MV deceleration [id number] ?msec ? MV A-wave Vmax ?1 ?m/sec [...] ? Mid-Inferior ?Hypokinetic ? Mid-Inferoseptal ?Hypokinetic ? Campbell-Septal ? Akinetic ? Campbell-Anterior ? Hypokinetic ? Campbell-Lateral ?Hypokinetic ? Campbell-Inferior ? Hypokinetic ? Campbell-Tip ?Akinetic ? This report has been electronically sign ed by: _ Iker Cuevas M.D. ? 10/07/2017 11:12:34 Images reviewed and interpretation verif ied [facility] Cardiac Ultrasound Laboratory Procedure Note Iker Cuevas MD - 10/07/2017Formatti ng of this note might be different from the original. Procedure: Transthoracic Echocardiogram Patient: NATALYA MCBRIDE(Age): [birth year]72y) Med Rec#: [id number] Sex: M Site Loc: [facility] Ht / Wt: 173(cm)/82(kg) Pt. Loc: Echo Lab BSA: 1.96 Study Date: 10/07/2017 Pt. Type: Outpati ent Tape: Referring: Danette Maxwell Reading: Iker Cuevas ([id number]) Field Cane Scaler: Yonathan Bocanegra Diagnosis: *ICD-10-PCS Ischemic cardiomyopathy (I2 [...] MV E-wave Vmax 1.2 m/sec MV deceleration [id number] msec MV A-wave Vmax 1 m/sec MV [...] Akinetic Mid-Posterolateral Hypokinetic Mid-Inferior Hypokinetic Mid-Inferoseptal Hypokinetic Campbell-Septal Akinetic Campbell-Anterior Hypokinetic Campbell-Lateral Hypokinetic Campbell-Inferior Hypokinetic Campbell-Tip Akinetic This report has been electronically sign ed by: _ Iker Cuevas M.D. 10/07/2017 11:12 :34 Images reviewed and interpretation verif ied [facility] Cardiac Ultrasound Laboratory Danette Maxwell APRN ECHO ORDERABLES Performing Organization Address City/State/ZIP Code Phon e Number [facility] Basic Metabolic Panel (non-fasting) (08/26/2017 2:00 PM EST) P athologist Signature Glucose Lvl 98 65 - 199 [facility] mg/dL [facility] Comment: Diabetes: >=200 mg/dL plus symp toms BUN 20 10 - 20 mg/dL [facility] Creatinine 1.17 0.80 - 1.50 mg/dL [facility] Sodium 140 135 - 145 mmol/L [facility] Potassium 4.8 3.5 - 5.0 mmol/L [facility] [...] LABORATORY Calcium 9.1 8.5 - 10.5 mg/dL [facility] Estimated GFR >60 >=60 [facility] Comment: The reported eGFR should be multiplied b y 1.2 for patients. The MDRD is not an appropriate measure o f renal function for patients with body mass extremes or in patients with acute kidney failure. http://Vastrm.Centrix/DHnkdep http://[place]/DHMCnkf Specimen Anatomical Collection Method Collection Time Receive d Time (Source) Location / / Volume Laterality Blood specimen 08/26/2017 2:00 PM 018 2:15 (specimen) EST PM EST Resulting Agency Comment Spec In Lab Danette Maxwell COMMERCIAL REAL ESTATE SALES MANAGER CHEMISTRY ORDERABLES Performing Organization Address City/State/[place] [address] (ABNORMAL) pro-Brain Natriuretic Peptide (08/26/2017 2:00 PM EST) P athologist Signature ProBNP 2,373 (H) <=125 [facility] pg/mL [facility] Specimen Anatomical Collection Method Collection Time Receive d Time (Source) Location / / Volume Laterality Blood specimen 08/26/2017 2:00 PM 018 2:15 (specimen) EST PM EST Resulting Agency Comment Spec In Lab Danette Maxwell STACIE CHEMISTRY ORDERABLES Performing Organization Address City/State/[place] [address] documented in this encounter [...] failure documented in this encounter Care Teams Child Daycare Worker Relationship Specialty Start Date End Date Lovely Vicente MD PCP - General 04/16/[address] [place] [address] documented as of this encounter
--- OUTSIDE RECORDS SUMMARY | 2022-02-23 08:54 | XMS_ITS | Encounter Summary ---
:1945 [place] [address] Care Team Providers Name Role Phone Lovely Vicente MD Primary Care Provider Reason for Visit Auth/Cert Specialty Diagnoses / Procedures Referred By Contact Refer red To Contact Diagnoses Critical lower limb ischemia CELLULITIS RT FOOT Procedures EMERGENCY Referral ID Status Reason Start Date Expiration Date Visits Requ ested Visits Authorized [id number] 1 1 Encounter Details Date Type Department Care Team Description 08/06/2017 - Hospital Encounter 5 Yonathan Oneill lower limb ischemia; 08/16/2017 Su Flores MD Ischemic foot Hospital [facility] [address] [phone] Social History Tobacco Use Types Packs/Day Years [...] 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 Patient [...] Dorsalis Pedis (Ankle) Artery ?132 ? 0.94 ??[place]-Biphasic ? Posterior Tibial (Ankle) Artery ??154 ? 1.10 ??[place]-Biphasic ? Fourth Toe ? 67 ?0.48 ?? [...] the foot. Discharge Conditions/Prognosis: Good Discharge to: [facility] Rehab Discharge Medications: Your Medications [...] For any problems or questions please call [phone] ZELDA Smith, electrician supervisor substation Nurse Clinician For issues on weeknights after 5pm and weekends please call [phone] and ask for the Vascular Fellow concrete block maker. General Instructions None Future Appointments and Orders Future Appointments Provider Department Dept Phone 08/26/2017 4:00 PM Aurelia Rivera PA Vascular Surgery [facility] [phone] 09/07/2017 3:00 PM LAB, THREE L Lab 3L [facility] [phone] 09/07/2017 4:00 PM Luz Prescott MD Endocrinology at [facility] [phone] 09/09/2017 8:00 AM Barbra Soares APRN Pain Management [facility] [phone] Please bring a list of your current [...] For any problems or questions please call [phone] ZELDA Smith, electrician supervisor substation Nurse Clinician For issues on weeknights after 5pm and weekends please call [phone] and ask for the Vascular Fellow concrete block maker. documented in this encounter Medications at Time [...] Discharge Note Patient Destination: [facility] ([facility]) [address] [place] [address] Transportation: with (at bedside) Time of Discharge: by 12 noon Level of Care: swing Patient Aware: yes Family Notified: yes Md to call report to: Yissel Quintero CARDIOLOGY RN already called RN to call report to: [phone] Sihrin Wolf Office of Care Management Pager [phone] Shirin Wolf RN - 08/16/2017 10:50 AM EST [facility] has offered pt swing bed. Pt and accept bed. will transport via car. CARDIOLOGY RN Yissel Quintero aware; d/c paperwork will be completed by 12 noon. [facility] requests pt arrival by 1400 today; CARDIOLOGY RN, RN, and family aware. CARDIOLOGY RN called [facility] and was told that they prefer pt to arrive with wound vac dressing applied but clamped. CARDIOLOGY RN applied new wound vac dressing. RN has [facility] number to call report. PASSR completed; CARDIOLOGY RN paged to request provider signature in highlighted space. Indigo from [facility] notified via email that home wound vac now cancelled; [facility] has picked up from room and order cancelled. Packet started and provided to varnishing unit operator. Medicare important message explained to patient, patient signed. Copy provided to patient and signature page to OCM for inclusion in pt EMR. Radha Georges - 08/16/2017 10:34 AM EST Office of Care Management/Rn Orthopaedic Patient Name: Gregory Hoang : 1945 Patient has been offered a swing bed at [facility]. The patient will be transported by private transportation. No MD to MD report necessary Please call Nursing Report to [phone], ask for systems software developer. Info to accompany patient: Narcotic Prescriptions Copies of Medication Administration Records and IV sheets for past 10 days. Plan: Rn Orthopaedic will be available to the patient and Router Operator Radial-RN and/or Embossing Calender Operator for further assistance. Patient will be discharged to: [place] [phone] Radha Powers, Rn Orthopaedic Mira Black, VAMSI - 08/15/2017 10:05 PM EST [address] Flores to ask if he wanted to hold metoprolol dose. BP 95/58. OK to hold this dose Courtney Brito - 08/15/2017 3:26 PM EST Office of Care Management(OCM)/Rn Orthopaedic(RS)/ D/C Planning re : Patient is medically ready for d/c today. RS has been in contact with [facility] to see if they could offer a bed. [facility] is still reviewing the case and need their MD to review chart prior to accepting or declining. OCM team needs to check in with [facility] tomorrow to check on status. CM Notified RS: Courtney Suazo Pager [phone] Viry Weir MD - 08/15/2017 10:01 AM EST Vascular Surgery Progress Note ID: Gregoyr Hoang is a 72 y.o. 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 Vac in place. [...] would like information about patient's referral to: [facility] PHONE: [phone] FAX: [phone] CM spoke with RS who said that [...] rehab. Await recommendations from PT. Covering pager #[phone]. 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 Magnetic Tape Typewriter Operator Kaitlin Saha, RN Pager #[phone] Payam Rosales - 08/13/2017 2:37 PM EST Transmission And Protection Engineer Encounter Note Patient Name: Gregory Hoang : [id number] MR#: [id number] Admit Date: 08/06/2017 1:41 PM Hospital Day 7 days Narrative: Visited to introduce and assess acceptance of Transmission And Protection Engineer services. Pt was awake, alert, oriented and in chair and family was there. Assessment:Patient coping positively with stresses of illness/hospitalization at this time. Pt says that he is hoping to get better and his family was there. Pt says that he has family care and supportand taking one day at time. Intervention and Outcome: Provided emotional support and encouraging presence. 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 A letter describing our affiliations was reviewed with them and theywere educated about their right to choose where referrals are placed. Patient requests referral to [facility] [employer]. PHONE: [phone] FAX: [phone]. And Home NPWT (Negative Pressure Wound Therapy) aka wound vac device made available to pt. Serial # confirmed. Reviewed [facility] Proof of Delivery/Assignment of Benefits Statement(POD/AOB) Form w patient or authorized agent signing on behalf of patient. Copy of POD/AOB provided to pt and other copy faxed to [employer] @ fax# [phone] Expected date of discharge: 08/12/2017. 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 Address: [address] [place] [address] [place] [address] (home) Mobile: Telephone Information: Referring Provider: No [...] [facility] ??? 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 Heparin gtt continues to run. [...] : 1945 AGE 72 y.o. Address: [address] [place] [address] [place] [address] (home) Mobile: Telephone Information: Referring Provider: No [...] [facility] ??? PRO COLONOSCOPY, REMV [...] Mcknight MD at [facility] Date/Procedure Meds given/comments No [...] tablet by mouth every evening. 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 Unsuccessful draw attempt, another soft work wrapper examiner will come [facility] to collect blood for PTT test. 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 Vascular resident concrete block maker and will forward result to the team prior to rounds. 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 Patient [...] [facility] ??? PRO COLONOSCOPY, REMV [...] Mcknight MD at [facility] Functional Status/Social Hx: Quit [...] left blue toes with CTA showing R DIE ATTACHER pseudoaneurysm (now thrombosed) and occluded ATs bilaterally. [...] 2.5x80 5. Completion RLE angiogram 6. L DIE ATTACHER angiogram 7. 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 - L DIE ATTACHER angriogram demonstrated: High femoral bifurcation over the proximal half of the femoral head. L DIE ATTACHER access in the distal L DIE ATTACHER. - Closure device: Mynx Technical Procedure: The [...] for a 45cm 5F Destination. V18 and Coleman and QuickCross catheters were used to select [...] 5F. A stationed picture of the L DIE ATTACHER was performed as the patient was noted to have a very high bifurcation. Access appeared in the distal R DIE ATTACHER. Closure and sheath removal was performed with [...] PM EST 1440 report called to 5 [place] nurse Tessa AGUSTIN documented in this encounter [...] with pt and pt's spouse. Discharge to [facility]. Goal: Individualization & Mutuality Outcome: [...] sit/sit to supine -- Bed Mobility Goal, Monona Level independent -- Bed Mobility Goal, Date [...] days -- Transfer Training Goal, Activity Type qti-ft-rices/fwtmm-mr-afa -- Transfer Train Goal, Monona Level conditional independence -- Transfer Train Goal, [...] call cabello within reach, Hourly rounding by RN/INVESTMENT STRATEGIST. Bed alarm / Chair alarm. Patient-specific fall [...] Smith MD - 08/15/2017 6:28 PM EST [facility] Operative Note Patient Name: Gregory Hoang : [id number] MR#: [id number] Case Date: 08/09/2017 Surgeon: Surgeon(s) and Role: [...] 2.5x80 5. Completion RLE angiogram 6. L DIE ATTACHER angiogram 7. Mynx closure Precautions/Restrictions: fall, sternal [...] other (see comments) (or swing bed) Pager: [phone] BASSAM ELIAS, PT 08/14/2017 Inpatient Physical Therapy [...] to Achieve by discharge Gait Training Goal, Monona Level conditional independence;set up required Gait Training [...] these facilities over the weekend except for [facility]. CM spoke with [facility] CM Drea Sandhu, VAMSI who said that they do not anticipate any beds over the weekend. Reviewed with patient/ that they need to be aware that patient will need to take the first bed offered at the facilities that they make referrals to. Their choices are: 1- [facility] PHONE: [phone] FAX: [phone] 2- [facility] ([facility]) [address] [place] [address] 3- [facility]) [address] [place] [address] I have discussed Medicare/Private Insurance [...] RS/CM on Wednesday to follow-up. Covering pager #[phone] for today. Plan of Care - Henrique [...] with additional findings of pseudoaneurysm on R DIE ATTACHER and bilateral anterior tibial artery occlusions. Was [...] an outpatient once discharged. Have patient call [phone] to set up an appointment. Follow-up: Dermatology will sign-off for now. Please do not hesitate to contact us if you have any questions orconcerns. Impression and Recommendations discussed with primary team on 08/13/2017. Karo Henderson MD Resident in Dermatology Section of Dermatology, Department of Surgery [facility] Pager [phone] Patient seen and evaluated with staff Fur Sorter: Halima Cordero MD Section of Dermatology [facility] Level of Resident Supervision: [...] 2.5x80 5. Completion RLE angiogram 6. L DIE ATTACHER angiogram 7. Mynx closure Active Non-Hospital Problems [...] home with home health ([facility] PT[facility]OT) Pager: [phone] YASIR TELLO OT 08/12/2017 Occupational Therapy Rehabilitation [...] 2.5x80 5. Completion RLE angiogram 6. L DIE ATTACHER angiogram 7. Mynx closure Past Medical History: [...] with 24/7 assistance and maximal services) Pager: [phone] NICHOLAS MORA, PT 08/12/2017 Physical Therapy Rehabilitation [...] sit/sit to supine -- Bed Mobility Goal, Monona Level independent -- Bed Mobility Goal, Outcome Achieved -- goal ongoing Goal: Gait Training Goal Stand Alone Therapy Goal Outcome: Ongoing (Interventions Implemented as Appropriate) 08/11/17 1310 08/12/17 1510 Gait Training Goal Gait Training Goal, Date Established 08/11/17 -- Gait Training Goal, Time to Achieve 5 - 7 days -- Gait Training Goal, Monona Level conditional independence -- Gait Training Goal, [...] days -- Transfer Training Goal, Activity Type gud-au-djdkh/oiako-dq-hmx -- Transfer Train Goal, Monona Level conditional independence -- Transfer Training Goal, [...] Smith MD - 08/11/2017 2:52 PM EST [facility] Operative Note Patient Name: Gregory Hoang : [id number] MR#: [id number] Case Date: 08/11/2017 Surgeon: Surgeon(s) and Role: [...] 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 Completion RLE angiogram 6. L DIE ATTACHER angiogram 7. Mynx closure He is very [...] Anticipated Discharge Disposition: inpatient rehabilitation facility Pager: [phone] LAWRENCE GONZALEZ, PT 08/11/2017 Physical Therapy Rehabilitation [...] to sit/sit to supine Bed Mobility Goal, Monona Level independent Goal: Gait Training Goal Stand Alone Therapy Goal Outcome: Ongoing (Interventions Implemented as Appropriate) 08/11/17 1310 Gait Training Goal Gait Training Goal, Date Established 08/11/17 Gait Training Goal, Time to Achieve 5 - 7 days Gait Training Goal, Monona Level conditional independence Gait Training Goal, Assist [...] 7 days Transfer Training Goal, Activity Type fwm-ko-rwoco/oqplb-du-nay Transfer Train Goal, Monona Level conditional independence Plan of [facility] Annetta Sandoval RN - 08/11/2017 7:21 [...] call cabello within reach, Hourly rounding by RN/INVESTMENT STRATEGIST. Bed alarm / Chair alarm. ? Patient-specific [...] 04/05/2013 Hospitalizations Within the Past 30 Days: [facility] 07/20/2017 Anticipated Length Of Stay (If known): Expected Length of Hospitalization: 5-7 days2-3 days Current Decision-Making Capacity: Alert and oriented x 4 Advance Care Planning: on file Kisha Hoang [facility] [phone] Current Coping/Education/Information Needs: pt and spouse state [...] Health/Prescription Coverage: Primary Insurance: MEDICARE Secondary Insurance: [employer] [facility] Prescription Coverage: See above Preferred Pharmacy: [facility] Other: N/A Primary Care Provider: Lovely Vicente MD [phone] Patient/Caregiver Goals of Treatment: Patient plans to return home when medically ready Potential Needs for Transition of Care: Rehab/SNF: N/A Home Health: [facility]. DME: pt has a cane and [...] of care planning. Kaitlin Saha RN Pager: [phone] Plan of Care - Melba Jaramillo RN [...] Overview Goal: Plan of Care Review 08/08/17 3864 Coping/Psychosocial Plan Of Care Reviewed With patient [...] call cabello within reach, Hourly rounding by RN/INVESTMENT STRATEGIST. Bed alarm / Chair alarm. Patient-specific fall [...] at bedside and MD TEAM Carrying pager [phone] contacted (via Radio page) and notified of [...] MEDICAL [facility] ER CARDIOLOGY [place], [place] 0375 (Wo rk) documented as of [...] section. TYPE AND SCREEN Routine 08/09/2017 1:10 ([facility]/CGP/SHANDA) AM EST BASIC METABOLIC PANEL Routine 08/09/2017 [...] Signature POC Glucose 160 65 - 199 [facility] mg/dL [facility] Comment: Supplemental ranges: <140 mg/dL before meals <180 mg/dL all other times of the day Specimen Anatomical Collection Method Collection Time Receive d Time (Source) Location / / Volume Laterality Blood specimen 08/16/2017 7:28 AM 018 7:28 (specimen) EST AM EST Yonathan Smith MD POINT OF CARE TEST ORDERABLE S Performing Organization Address City/State/ZIP [place] [address] (ABNORMAL) Differential, Automated (08/16/2017 5:08 AM EST) Patholo gist Method Time Signature Neutrophils % 73.9 % [facility] Neutr Abs (ANC) 5.37 1.70 - [facility] 6.10 [facility] x10(3)/[facility] LABORATORY Lymphocytes % 10.1 % [facility] Lymphocytes Abs 0.7 (L) 0.9 - 3.2 [facility] x10(3)/[facility] LABORATORY Monocytes % 10.1 % [facility] Monocyte Abs 0.7 0.3 - 0.9 [facility] x10(3)/[facility] LABORATORY Eosinophils % 5.1 % [facility] Eosinophils Abs 0.4 0.0 - 0.4 [facility] x10(3)/[facility] LABORATORY Basophils % 0.4 % [facility] Basophils Abs 0.0 0.0 - 0.1 [facility] x10(3)/[facility] LABORATORY Immature Gran % 0.40 % [facility] [...] Gran Abs 0.03 0.00 - 0.04 x10(3)/[facility] Specimen Anatomical Collection Method Collection Time Receive d Time (Source) Location / / Volume Laterality Blood specimen 08/16/2017 5:08 AM 018 5:20 (specimen) EST AM EST Resulting Agency Comment Spec In Lab Yonathan Smith MD HEMATOLOGY ORDERABLES Performing Organization Address City/State/ZIP [place] [address] (ABNORMAL) Hemogram (08/16/2017 5:08 AM EST) Analysis Performed At Patho logist Time Signature WBC 7.3 4.0 - 9.5 [facility] x10(3)/[facility] LABORATORY RBC 3.36 (L) 4.58 - [facility] 5.54 [facility] x10(6)/[facility] LABORATORY Hemoglobin 9.7 (L) 13.7 - [facility] 16.5 gm/dL [facility] Hematocrit 30.3 (L) 40.5 - [facility] 48.5 % [facility] MCV 90.2 82.9 - [facility] 93.1 [facility] LABORATORY MCH 28.9 27.5 - BARBARA DAVIS 32.1 pg [facility] MCHC 32.0 32.0 - [facility] 35.7 gm/dL [facility] Platelets 282 145 - 357 [facility] x10(3)/[facility] LABORATORY RDWSD 53.9 (H) 36.0 - BARBARA SU 45.0 [facility] LABORATORY RDWCV 16.5 (H) 11.4 - [facility] 13.8 % [facility] MPV 9.0 7.6 - 12.9 [facility] LABORATORY nRBC % Auto 0.0 % [facility] nRBC Abs Auto 0.000 0.000 - [facility] 0.000 [facility] x10(3)/[facility] LABORATORY Specimen Anatomical Collection Method Collection Time Receive d Time (Source) Location / / Volume Laterality Blood specimen 08/16/2017 5:08 AM 018 5:20 (specimen) EST AM EST Resulting Agency Comment Spec In Lab Yonathan Smith MD HEMATOLOGY ORDERABLES Performing Organization Address City/State/ZIP [place] [address] (ABNORMAL) Basic Metabolic Panel (non-fasting) (08/16/2017 5:08 AM EST) P athologist Signature Glucose Lvl 141 65 - 199 [facility] mg/dL [facility] Comment: Diabetes: >=200 mg/dL plus symp toms BUN 29 (H) 10 - 20 mg/dL [facility] Creatinine 1.25 0.80 - [...] estions. Chloride 99 98 - 107 mmol/L [facility] CO2 28 22 - 31 mmol/L [facility] Anion Gap 13 5 - 15 mmol/L [facility] Calcium 8.7 8.5 - 10.5 mg/dL [facility] Estimated GFR 57 (L) >=60 [facility] Comment: The reported eGFR should be multiplied b y 1.2 for patients. The MDRD is not an appropriate measure o f renal function for patients with body mass extremes or in patients with acute kidney failure. http://Breezeplay/DHnkdep http://Breezeplay/DHMCnkf Specimen Anatomical Collection Method Collection Time Receive d Time (Source) Location / / Volume Laterality Blood specimen 08/16/2017 5:08 AM 018 5:20 (specimen) EST AM EST Resulting Agency Comment Spec In Lab Yonathan Smith MD CHEMISTRY ORDERABLES Performing Organization Address [facility] Phon e Number [address] (ABNORMAL) Prothrombin Time (08/16/2017 5:08 AM EST) P athologist Signature PT 25.2 (H) 11.8 - 14.0 [facility] LABORATORY INR 2.3 (H) 0.9 - 1.1 [facility] [...] Smith MD HEMATOLOGY ORDERABLES Performing Organization Address [facility] Code Phon e Number [address] POCT Glucose (08/16/2017 4:09 AM EST) athologist Signature POC Glucose 147 65 - 199 BARBARA ZHAOSU mg/dL [facility] Comment: Supplemental ranges: <140 mg/dL before meals <180 mg/dL all other times of the day Specimen Anatomical Collection Method Collection Time Receive d Time (Source) Location / / Volume Laterality Blood specimen 08/16/2017 4:09 AM 018 4:09 (specimen) EST AM EST Yonathan Smith MD POINT OF CARE TEST ORDERABLE S Performing Organization Address City/State/ZIP Code Phon e Number [address] POCT Glucose (08/15/2017 11:56 PM EST) athologist Signature POC Glucose 176 65 - 199 [facility] [facility] Comment: Supplemental ranges: <140 mg/dL before meals <180 mg/dL all other times of the day Specimen Anatomical Collection Method Collection Time Receive d Time (Source) Location / / Volume Laterality Blood specimen 08/15/2017 11:56 8 (specimen) PM EST 11:56 PM EST Yonathan Smith MD POINT OF CARE TEST ORDERABLE S Performing Organization Address City/State/[place] [address] POCT Glucose (08/15/2017 8:05 PM EST) athologist Signature POC Glucose 136 65 - 199 [place] [facility] mg/dL [facility] Comment: Supplemental ranges: <140 mg/dL before meals <180 mg/dL all other times of the day Specimen Anatomical Collection Method Collection Time Receive d Time (Source) Location / / Volume Laterality Blood specimen 08/15/2017 8:05 PM 018 8:05 (specimen) EST PM EST Yonathan Smith MD POINT OF CARE TEST ORDERABLE S Performing Organization Address City/State/[place] [address] (ABNORMAL) POCT Glucose (08/15/2017 4:50 PM EST) athologist Signature POC Glucose 232 (H) 65 - 199 [place] [facility] mg/dL [facility] Comment: Supplemental ranges: <140 mg/dL before meals <180 mg/dL all other times of the day Specimen Anatomical Collection Method Collection Time Receive d Time (Source) Location / / Volume Laterality Blood specimen 08/15/2017 4:50 PM 018 4:50 (specimen) EST PM EST Yonathan Smith MD POINT OF CARE TEST ORDERABLE S Performing Organization Address City/State/[place] [address] POCT Glucose (08/15/2017 12:04 PM EST) athologist Signature POC Glucose 135 65 - 199 [facility] Comment: Supplemental ranges: <140 mg/dL before meals <180 mg/dL all other times of the day Specimen Anatomical Collection Method Collection Time Receive d Time (Source) Location / / Volume Laterality Blood specimen 08/15/2017 12:04 8 (specimen) PM EST 12:04 PM EST Yonathan Smith MD POINT OF CARE TEST ORDERABLE S Performing Organization Address City/State/[place] [address] POCT Glucose (08/15/2017 7:36 AM EST) athologist Signature POC Glucose 124 65 - 199 [facility] mg/dL [facility] Comment: Supplemental ranges: <140 mg/dL before meals <180 mg/dL all other times of the day Specimen Anatomical Collection Method Collection Time Receive d Time (Source) Location / / Volume Laterality Blood specimen 08/15/2017 7:36 AM 018 7:36 (specimen) EST AM EST Yonathan Smith MD POINT OF CARE TEST ORDERABLE S Performing Organization Address City/State/[place] [address] (ABNORMAL) Differential, Automated (08/15/2017 6:22 AM EST) Patholo gist Method Time Signature Neutrophils % 76.1 % [facility] Neutr Abs (ANC) 6.62 (H) 1.70 - [facility] 6.10 [facility] x10(3)/[facility] L LABORATORY Lymphocytes % 9.3 % [facility] Lymphocytes Abs 0.8 (L) 0.9 - 3.2 [facility] x10(3)/[facility] LABORATORY Monocytes % 9.4 % [facility] Monocyte Abs 0.8 0.3 - 0.9 [facility] x10(3)/[facility] LABORATORY Eosinophils % 4.0 % [facility] Eosinophils Abs 0.4 0.0 - 0.4 [facility] x10(3)/[facility] LABORATORY Basophils % 0.6 % [facility] Basophils Abs 0.0 0.0 - 0.1 [place] [id number](3)/[facility] LABORATORY Immature Gran % 0.60 % [facility] [...] Organization Address City/State/ZIP [place] [address] (ABNORMAL) Hemogram (08/15/2017 6:22 AM EST) Analysis Performed At [facility] logist Time Signature WBC 8.7 4.0 - 9.5 [facility] x10(3)/[facility] LABORATORY RBC 3.21 (L) 4.58 - [place] [facility] 5.54 [facility] x10(6)/[facility] LABORATORY Hemoglobin 9.1 (L) 13.7 - [facility] 16.5 gm/dL [facility] Hematocrit 29.0 (L) 40.5 - [facility] 48.5 % [facility] MCV 90.3 82.9 - [facility] 93.1 [facility] LABORATORY MCH 28.3 27.5 - [place] [facility] 32.1 pg [facility] MCHC 31.4 (L) 32.0 - [place] [facility] 35.7 gm/dL [facility] Platelets 254 145 - 357 [facility] x10(3)/[facility] LABORATORY RDWSD 53.9 (H) 36.0 - [facility] 45.0 [facility] LABORATORY RDWCV 16.3 (H) 11.4 - [facility] 13.8 % [facility] MPV 8.8 7.6 - 12.9 [facility] LABORATORY nRBC % Auto 0.0 % [facility] nRBC Abs Auto 0.000 0.000 - [facility] 0.000 [facility] x10(3)/[facility] LABORATORY Specimen Anatomical Collection Method Collection Time Receive d Time (Source) Location / / Volume Laterality Blood specimen 08/15/2017 6:22 AM 018 6:33 (specimen) EST AM EST Resulting Agency Comment Spec In Lab Yonathan Smith MD HEMATOLOGY ORDERABLES Performing Organization Address City/State/ZIP [place] [address] (ABNORMAL) Basic Metabolic Panel (non-fasting) (08/15/2017 6:22 AM EST) athologist Signature Glucose Lvl 118 65 - 199 [facility] mg/dL [facility] Comment: Diabetes: >=200 mg/dL plus symp toms BUN 27 (H) 10 - 20 mg/dL [facility] Creatinine 1.12 0.80 - [...] 15 mmol/L [facility] Calcium 8.8 8.5 - 10.5 mg/dL [facility] Estimated GFR >60 >=60 [facility] Comment: The reported eGFR should be multiplied b y 1.2 for patients. The MDRD is not an appropriate measure o f renal function for patients with body mass extremes or in patients with acute kidney failure. http://Breezeplay/DHnkdep http://Breezeplay/DHMCnkf Specimen Anatomical Collection Method Collection Time Receive d Time (Source) Location / / Volume Laterality Blood specimen 08/15/2017 6:22 AM 018 6:33 (specimen) EST AM EST Resulting Agency Comment Spec In Lab Yonathan Smith MD CHEMISTRY ORDERABLES Performing Organization Address City/State/ZIP [place] [address] (ABNORMAL) Prothrombin Time (08/15/2017 6:22 AM EST) athologist Signature PT 21.9 (H) 11.8 - 14.0 [facility] LABORATORY INR 1.9 (H) 0.9 - 1.1 [facility] [...] Smith MD HEMATOLOGY ORDERABLES Performing Organization Address City/[facility]/ZIP Code Phon e Number [address] POCT Glucose (08/15/2017 4:33 AM EST) athologist Signature POC Glucose 164 65 - 199 [place] [facility] mg/dL [facility] Comment: Supplemental ranges: <140 mg/dL before meals <180 mg/dL all other times of the day Specimen Anatomical Collection Method Collection Time Receive d Time (Source) Location / / Volume Laterality Blood specimen 08/15/2017 4:33 AM 018 4:33 (specimen) EST AM EST Yonathan Smith MD POINT OF CARE TEST ORDERABLE S Performing Organization Address City/[facility]/ZIP Code Phon e Number [address] POCT Glucose (08/15/2017 12:12 AM EST) athologist Signature POC Glucose 89 65 - 199 [place] [facility] mg/dL [facility] Comment: Supplemental ranges: <140 mg/dL before meals <180 mg/dL all other times of the day Specimen Anatomical Collection Method Collection Time Receive d Time (Source) Location / / Volume Laterality Blood specimen 08/15/2017 12:12 8 (specimen) AM EST 12:12 AM EST Yonathan Smith MD POINT OF CARE TEST ORDERABLE S Performing Organization Address City/[facility]/ZIP Code Phon e Number [address] (ABNORMAL) POCT Glucose (08/14/2017 8:07 PM EST) athologist Signature POC Glucose 204 (H) 65 - 199 [place] [facility] mg/dL [facility] Comment: Supplemental ranges: <140 mg/dL before meals <180 mg/dL all other times of the day Specimen Anatomical Collection Method Collection Time Receive d Time (Source) Location / / Volume Laterality Blood specimen 08/14/2017 8:07 PM 018 8:07 (specimen) EST PM EST Yonathan mSith MD POINT OF CARE TEST ORDERABLE S Performing Organization Address City/State/[place] [address] POCT Glucose (08/14/2017 5:11 PM EST) athologist Signature POC Glucose 174 65 - 199 [place] [facility] mg/dL [facility] Comment: Supplemental ranges: <140 mg/dL before meals <180 mg/dL all other times of the day Specimen Anatomical Collection Method Collection Time Receive d Time (Source) Location / / Volume Laterality Blood specimen 08/14/2017 5:11 PM 018 5:11 (specimen) EST PM EST Yonathan Smith MD POINT OF CARE TEST ORDERABLE S Performing Organization Address City/State/[place] [address] POCT Glucose (08/14/2017 12:10 PM EST) athologist Signature POC Glucose 141 65 - 199 [place] [facility] mg/dL [facility] Comment: Supplemental ranges: <140 mg/dL before meals <180 mg/dL all other times of the day Specimen Anatomical Collection Method Collection Time Receive d Time (Source) Location / / Volume Laterality Blood specimen 08/14/2017 12:10 8 (specimen) PM EST 12:10 PM EST Yonathan Smith MD POINT OF CARE TEST ORDERABLE S Performing Organization Address City/State/[place] [address] POCT Glucose (08/14/2017 8:07 AM EST) athologist Signature POC Glucose 158 65 - 199 [place] [facility] mg/dL [facility] Comment: Supplemental ranges: <140 mg/dL before meals <180 mg/dL all other times of the day Specimen Anatomical Collection Method Collection Time Receive d Time (Source) Location / / Volume Laterality Blood specimen 08/14/2017 8:07 AM 018 8:07 (specimen) EST AM EST Yonathan Smith MD POINT OF CARE TEST ORDERABLE S Performing Organization Address City/State/ZIP [place] [address] (ABNORMAL) Differential, Automated (08/14/2017 4:52 AM EST) [facility] Method Time Signature Neutrophils % 78.6 % [facility] Neutr Abs (ANC) 7.70 (H) 1.70 - [facility] 6.10 [facility] x10(3)/[facility] L LABORATORY Lymphocytes % 7.8 % [facility] Lymphocytes Abs 0.8 (L) 0.9 - 3.2 [facility] x10(3)/[facility] LABORATORY Monocytes % 8.8 % [facility] Monocyte Abs 0.9 0.3 - 0.9 [facility] x10(3)/[facility] LABORATORY Eosinophils % 4.0 % [facility] Eosinophils Abs 0.4 0.0 - 0.4 [facility] x10(3)/[facility] LABORATORY Basophils % 0.5 % [facility] Basophils Abs 0.0 0.0 - 0.1 [facility] x10(3)/[facility] LABORATORY Immature Gran % 0.30 % [facility] [...] Gran Abs 0.03 0.00 - 0.04 x10(3)/[facility] Specimen Anatomical Collection Method Collection Time Receive d Time (Source) Location / / Volume Laterality Blood specimen 08/14/2017 4:52 AM 018 5:08 (specimen) EST AM EST Resulting Agency Comment Spec In Lab Yonathan Smith MD HEMATOLOGY ORDERABLES Performing Organization Address City/State/ZIP [place] [address] (ABNORMAL) Hemogram (08/14/2017 4:52 AM EST) Analysis Performed At Patho logist Time Signature WBC 9.8 (H) 4.0 - 9.5 [facility] x[facility](3[facility] LABORATORY RBC 3.32 (L) 4.58 - [place] [facility] 5.54 [facility] x10(6)/[facility] LABORATORY Hemoglobin 9.5 (L) 13.7 - [facility] 16[facility] gm/dL [facility] Hematocrit 30.3 (L) 40.5 - [facility] 48.5 % [facility] MCV 91.3 82.9 - [facility] 93.1 [facility] LABORATORY MCH 28.6 27.5 - [facility] 32.1 pg [facility] MCHC 31.4 (L) 32.0 - [facility] 35.7 gm/dL [facility] Platelets 263 145 - 357 [facility] x10(3)/[facility] LABORATORY RDWSD 54.8 (H) 36.0 - [facility] 45.0 [facility] LABORATORY RDWCV 16.5 (H) 11.4 - [facility] 13.8 % [facility] MPV 9.1 7.6 - 12.9 [facility] nRBC % Auto 0.0 % [facility]ORY nRBC Abs Auto 0.000 0.000 - [facility] SU 0.000 [facility] x10(3)/[facility] LABORATORY Specimen Anatomical Collection Method Collection Time Receive d Time (Source) Location / / Volume Laterality Blood specimen 08/14/2017 4:52 AM 018 5:08 (specimen) EST AM EST Resulting Agency Comment Spec In Lab Yonathan Smith MD HEMATOLOGY ORDERABLES Performing Organization Address City/State/ZIP [place] [address] (ABNORMAL) Prothrombin Time (08/14/2017 4:52 AM EST) P athologist Signature PT 18.8 (H) 11.8 - 14.0 [facility] LABORATORY INR 1.6 (H) 0.9 - 1.1 [facility] [...] Organization Address City/State/ZIP [place] [address] (ABNORMAL) Basic Metabolic Panel (non-fasting) (08/14/2017 4:52 AM EST) P athologist Signature Glucose Lvl 135 65 - 199 [facility] mg/dL [facility] Comment: Diabetes: >=200 mg/dL plus symp toms BUN 25 (H) 10 - 20 mg/dL [facility] Creatinine 1.36 0.80 - [...] 15 mmol/L [facility] Calcium 8.5 8.5 - 10.5 mg/dL [facility] Estimated GFR 52 (L) >=60 [facility] Comment: The reported eGFR should be multiplied b y 1.2 for patients. The MDRD is not an appropriate measure o f renal function for patients with body mass extremes or in patients with acute kidney failure. http://Breezeplay/DHnkdep http://Breezeplay/DHMCnkf Specimen Anatomical Collection Method Collection Time Receive d Time (Source) Location / / Volume Laterality Blood specimen 08/14/2017 4:52 AM 018 5:08 (specimen) EST AM EST Resulting Agency Comment Spec In Lab Yonathan Smith MD CHEMISTRY ORDERABLES Performing Organization Address City/[facility] Phon e Number [address] POCT Glucose (08/14/2017 3:56 AM EST) athologist Signature POC Glucose 135 65 - 199 [facility]dL [facility] Comment: Supplemental ranges: <140 mg/dL before meals <180 mg/dL all other times of the day Specimen Anatomical Collection Method Collection Time Receive d Time (Source) Location / / Volume Laterality Blood specimen 08/14/2017 3:56 AM 018 3:56 (specimen) EST AM EST Yonathan Smith MD POINT OF CARE TEST ORDERABLE S Performing Organization Address City/[facility]/ZIP Code Phon e Number [address] POCT Glucose (08/13/2017 11:13 PM EST) P athologist Signature POC Glucose 118 65 - 199 [facility]dL [facility] Comment: Supplemental ranges: <140 mg/dL before meals <180 mg/dL all other times of the day Specimen Anatomical Collection Method Collection Time Receive d Time (Source) Location / / Volume Laterality Blood specimen 08/13/2017 11:13 8 (specimen) PM EST 11:13 PM EST Yonathan Smith MD POINT OF CARE TEST ORDERABLE S Performing Organization Address City/State/[facility] [place] [address] (ABNORMAL) POCT Glucose (08/13/2017 8:08 PM EST) athologist Signature POC Glucose 204 (H) 65 - 199 [place] [facility] mg/dL [facility] Comment: Supplemental ranges: <140 mg/dL before meals <180 mg/dL all other times of the day Specimen Anatomical Collection Method Collection Time Receive d Time (Source) Location / / Volume Laterality Blood specimen 08/13/2017 8:08 PM 018 8:08 (specimen) EST PM EST Yonathan Smith MD POINT OF CARE TEST ORDERABLE S Performing Organization Address City/State/ZIP Code Phon e Number [address] POCT Glucose (08/13/2017 4:02 PM EST) athologist Signature POC Glucose 145 65 - 199 [place] mg/dL [facility] Comment: Supplemental ranges: <140 mg/dL before meals <180 mg/dL all other times of the day Specimen Anatomical Collection Method Collection Time Receive d Time (Source) Location / / Volume Laterality Blood specimen 08/13/2017 4:02 PM 018 4:02 (specimen) EST PM EST Yonathan Smith MD POINT OF CARE TEST ORDERABLE S Performing Organization Address City/State/[place] [address] POCT Glucose (08/13/2017 11:31 AM EST) athologist Signature POC Glucose 179 65 - 199 [place] [facility] mg/dL [facility] Comment: Supplemental ranges: <140 mg/dL before meals <180 mg/dL all other times of the day Specimen Anatomical Collection Method Collection Time Receive d Time (Source) Location / / Volume Laterality Blood specimen 08/13/2017 11:31 8 (specimen) AM EST 11:31 AM EST Yonathan Smith MD POINT OF CARE TEST ORDERABLE S Performing Organization Address City/State/ZIP Code Phon e Number [address] (ABNORMAL) POCT Glucose (08/13/2017 10:16 AM EST) P athologist Signature POC Glucose 211 (H) 65 - 199 [facility]dL [facility] Comment: Supplemental ranges: <140 mg/dL before meals <180 mg/dL all other times of the day Specimen Anatomical Collection Method Collection Time Receive d Time (Source) Location / / Volume Laterality Blood specimen 08/13/2017 10:16 8 (specimen) AM EST 10:16 AM EST Yonathan Smith MD POINT OF CARE TEST ORDERABLE S Performing Organization Address City/State/[place] [address] JULINA, legs, multiple levels (08/13/2017 7:42 AM EST) Component Value Ref Test Analysis Performed At Patholo gist Range Method Time Signature VB Text Department: Vascular Surgery Lab VASCUBASE Report Patient: [id number] (GREGORY HOANG) CPT: 08155 ICD10: I99.8 Referring Physician: YONATHAN SMITH ?? Indications: s/p R 1,2,3 toe amps with red left foot, need n ew baseline Diabetes mellitus: yes ICD10 Diagnosis Code: I99.8 Findings: Right ?Pressure (mm Hg) ?? JULIAN ??Waveform ?TBI ?? Brachial Artery ?138 ? Dorsalis Pedis (Ankle) Arter y ?132 ? 0.94 ??[place]- Biphasic ? Posterior Tibial (Ankle) Art anila ??154 ? 1.10 ??[place]-Biphasic ? Fourth Toe ? 67 ? 0.48 [...] Smith MD VASCULAR ORDERABLES Performing Organization Address City/[facility]/ZIP Code Phon e Number VASCUBASE POCT Glucose (08/13/2017 7:33 AM EST) P athologist Signature POC Glucose 156 65 - 199 [facility] mg/dL [facility] Comment: Supplemental ranges: <140 mg/dL before meals <180 mg/dL all other times of the day Specimen Anatomical Collection Method Collection Time Receive d Time (Source) Location / / Volume Laterality Blood specimen 08/13/2017 7:33 AM 018 7:33 (specimen) EST AM EST Yonathan Smith MD POINT OF CARE TEST ORDERABLE S Performing Organization Address City/[facility]/ZIP [facility] [place] [address] (ABNORMAL) Differential, Automated (08/13/2017 5:33 AM EST) Patholo gist Method Time Signature Neutrophils % 77.8 % [facility] Neutr Abs (ANC) 7.83 (H) 1.70 - [facility] 6.10 [facility] x10(3)/[facility] L LABORATORY Lymphocytes % 8.4 % [facility] Lymphocytes Abs 0.8 (L) 0.9 - 3.2 [facility] x10(3)/[facility] LABORATORY Monocytes % 8.3 % [facility] Monocyte Abs 0.8 0.3 - 0.9 [facility] x10(3)/[facility] LABORATORY Eosinophils % 4.6 % [facility] Eosinophils Abs 0.5 (H) 0.0 - 0.4 [facility] x10(3)/[facility] LABORATORY Basophils % 0.5 % [facility] Basophils Abs 0.0 0.0 - 0.1 [facility] x10(3)/[facility] LABORATORY Immature Gran % 0.40 % [facility] [...] Melisa Gran Abs 0.04 0.00 - 0.04 x10(3)/[facility] MAR [facility]ORATORY Specimen Anatomical Collection Method Collection Time Receive d Time (Source) Location / / Volume Laterality Blood specimen 08/13/2017 5:33 AM 018 6:04 (specimen) EST AM EST Resulting Agency Comment Spec In Lab Yonathan Smith MD HEMATOLOGY ORDERABLES Performing Organization Address City/State/[place] [address] (ABNORMAL) Hemogram (08/13/2017 5:33 AM EST) Analysis Performed At Patho logist Time Signature WBC 10.1 (H) 4.0 - 9.5 [facility] x10(3)/[facility] LABORATORY RBC 3.21 (L) 4.58 - [facility] 5.54 [facility] x10(6)/[facility] LABORATORY Hemoglobin 9.2 (L) 13.7 - [facility] 16.5 gm/dL [facility] Hematocrit 29.6 (L) 40.5 - [facility] 48.5 % [facility] MCV 92.2 82.9 - [facility] 93.1 fL [facility] MCH 28.7 27.5 - [facility] 32.1 pg [facility] MCHC 31.1 (L) 32.0 - [facility] 35.7 gm/dL [facility] Platelets 263 145 - 357 [facility] x10(3)/[facility] LABORATORY RDWSD 54.8 (H) 36.0 - [facility] 45.0 [facility] LABORATORY RDWCV 16.4 (H) 11.4 - [facility] 13.8 % [facility] MPV 9.2 7.6 - 12.9 [facility] LABORATORY nRBC % Auto 0.0 % [facility]ORATORY nRBC Abs Auto 0.000 0.000 - [facility] 0.000 [facility] x10(3)/[facility] LABORATORY Specimen Anatomical Collection Method Collection Time Receive d Time (Source) Location / / Volume Laterality Blood specimen 08/13/2017 5:33 AM 018 6:04 (specimen) EST AM EST Resulting Agency Comment Spec In Lab Yonathan Smith MD HEMATOLOGY ORDERABLES Performing Organization Address City/State/[facility] [place] [address] (ABNORMAL) Prothrombin Time (08/13/2017 5:33 AM EST) P athologist Signature PT 17.3 (H) 11.8 - 14.0 [facility] LABORATORY INR 1.4 (H) 0.9 - 1.1 [facility] [...] Organization Address City/State/[place] [address] (ABNORMAL) Basic Metabolic Panel (non-fasting) (08/13/2017 5:33 AM EST) P athologist Signature Glucose Lvl 126 65 - 199 [facility] mg/dL [facility] Comment: Diabetes: >=200 mg/dL plus symp toms BUN 18 10 - 20 mg/dL [facility] Creatinine 1.16 0.80 - [...] [facility] Anion Gap 12 5 - 15 mmol/L [facility] Calcium 7.9 (L) 8.5 - 10.5 mg/dL [facility] Estimated GFR >60 >=60 [facility] Comment: The reported eGFR should be multiplied b y 1.2 for patients. The MDRD is not an appropriate measure o f renal function for patients with body mass extremes or in patients with acute kidney failure. http://[employer]/DHnkdep http://[employer]Affashion/DHMCnkf Specimen Anatomical Collection Method Collection Time Receive d Time (Source) Location / / Volume Laterality Blood specimen 08/13/2017 5:33 AM 018 6:04 (specimen) EST AM EST Resulting Agency Comment Spec In Lab Yonathan Smith MD CHEMISTRY ORDERABLES Performing Organization Address City/[facility]/ZIP Code Phon e Number [place] [id number] POCT Glucose (08/13/2017 4:29 AM EST) athologist Signature POC Glucose 111 65 - 199 [place] [facility] mg/dL [facility] Comment: Supplemental ranges: <140 mg/dL before meals <180 mg/dL all other times of the day Specimen Anatomical Collection Method Collection Time Receive d Time (Source) Location / / Volume Laterality Blood specimen 08/13/2017 4:29 AM 018 4:29 (specimen) EST AM EST Yonathan Smith MD POINT OF CARE TEST ORDERABLE S Performing Organization Address City/State/ZIP Code Phon e Number [address] POCT Glucose (08/12/2017 11:28 PM EST) athologist Signature POC Glucose 164 65 - 199 [facility] Comment: Supplemental ranges: <140 mg/dL before meals <180 mg/dL all other times of the day Specimen Anatomical Collection Method Collection Time Receive d Time (Source) Location / / Volume Laterality Blood specimen 08/12/2017 11:28 8 (specimen) PM EST 11:28 PM EST Yonathan Smith MD POINT OF CARE TEST ORDERABLE S Performing Organization Address City/State/[place] [address] (ABNORMAL) POCT Glucose (08/12/2017 7:40 PM EST) athologist Signature POC Glucose 209 (H) 65 - 199 [facility] mg/dL [facility] Comment: Supplemental ranges: <140 mg/dL before meals <180 mg/dL all other times of the day Specimen Anatomical Collection Method Collection Time Receive d Time (Source) Location / / Volume Laterality Blood specimen 08/12/2017 7:40 PM 018 7:40 (specimen) EST PM EST Yonathan Smith MD POINT OF CARE TEST ORDERABLE S Performing Organization Address City/State/[place] [address] POCT Glucose (08/12/2017 4:24 PM EST) athologist Signature POC Glucose 161 65 - 199 [place] [facility] mg/dL [facility] Comment: Supplemental ranges: <140 mg/dL before meals <180 mg/dL all other times of the day Specimen Anatomical Collection Method Collection Time Receive d Time (Source) Location / / Volume Laterality Blood specimen 08/12/2017 4:24 PM 018 4:24 (specimen) EST PM EST Yonathan Smith MD POINT OF CARE TEST ORDERABLE S Performing Organization Address City/State/[place] [address] POCT Glucose (08/12/2017 12:00 PM EST) athologist Signature POC Glucose 167 65 - 199 [facility] mg/dL [facility] Comment: Supplemental ranges: <140 mg/dL before meals <180 mg/dL all other times of the day Specimen Anatomical Collection Method Collection Time Receive d Time (Source) Location / / Volume Laterality Blood specimen 08/12/2017 12:00 8 (specimen) PM EST 12:00 PM EST Yonathan Smith MD POINT OF CARE TEST ORDERABLE S Performing Organization Address City/State/[place] [address] POCT Glucose (08/12/2017 7:25 AM EST) athologist Signature POC Glucose 152 65 - 199 [place] [facility] mg/dL [facility] Comment: Supplemental ranges: <140 mg/dL before meals <180 mg/dL all other times of the day Specimen Anatomical Collection Method Collection Time Receive d Time (Source) Location / / Volume Laterality Blood specimen 08/12/2017 7:25 AM 018 7:25 (specimen) EST AM EST Yonathan Smith MD POINT OF CARE TEST ORDERABLE S Performing Organization Address City/State/[place] [address] (ABNORMAL) Differential, Automated (08/12/2017 6:29 AM EST) Patholo gist Method Time Signature Neutrophils % 78.7 % [facility] Neutr Abs (ANC) 7.94 (H) 1.70 - [facility] 6.10 [facility] x10(3)/[facility] LABORATORY Lymphocytes % 8.8 % [facility] Lymphocytes Abs 0.9 0.9 - 3.2 [facility] x10(3)/[facility] LABORATORY Monocytes % 7.8 % [facility] Monocyte Abs 0.8 0.3 - 0.9 [facility] x10(3)/[facility] LABORATORY Eosinophils % 3.9 % [facility] Eosinophils Abs 0.4 0.0 - 0.4 [facility] x10(3)/[facility] LABORATORY Basophils % 0.3 % [facility] Basophils Abs 0.0 0.0 - 0.1 [facility] x10(3)/[facility] LABORATORY Immature Gran % 0.50 % [facility] [...] Organization Address City/State/ZIP [place] [address] (ABNORMAL) Hemogram (08/12/2017 6:29 AM EST) Analysis Performed At [facility] logist Time Signature WBC 10.1 (H) 4.0 - 9.5 [facility] x10(3)/[facility] LABORATORY RBC 3.02 (L) 4.58 - [place] [facility] 5.54 [facility] x10(6)/[facility] LABORATORY Hemoglobin 8.7 (L) 13.7 - [facility] SU 16.5 gm/dL [facility] Hematocrit 28.1 (L) 40.5 - [place] [facility] 48.5 % [facility] MCV 93.0 82.9 - [facility] 93.1 [facility] LABORATORY MCH 28.8 27.5 - [place] [facility] 32.1 pg [facility] MCHC 31.0 (L) 32.0 - [facility] SU 35.7 gm/dL [facility] Platelets 223 145 - 357 [facility] x10(3)/[facility] LABORATORY RDWSD 56.1 (H) 36.0 - [facility] SU 45.0 [facility] LABORATORY RDWCV 16.4 (H) 11.4 - [facility] 13.8 % [facility] MPV 9.0 7.6 - 12.9 [facility] LABORATORY nRBC % Auto 0.0 % [facility] nRBC Abs Auto 0.000 0.000 - [facility] 0.000 [facility] x10(3)/[facility] LABORATORY Specimen Anatomical Collection Method Collection Time Receive d Time (Source) Location / / Volume Laterality Blood specimen 08/12/2017 6:29 AM 018 6:38 (specimen) EST AM EST Resulting Agency Comment Spec In Lab Yonathan Smith MD HEMATOLOGY ORDERABLES Performing Organization Address City/State/ZIP [place] [address] (ABNORMAL) Prothrombin Time (08/12/2017 6:29 AM EST) P athologist Signature PT 16.1 (H) 11.8 - 14.0 [facility] LABORATORY INR 1.3 (H) 0.9 - 1.1 [facility] [...] Organization Address City/State/ZIP [place] [address] (ABNORMAL) Basic Metabolic Panel (non-fasting) (08/12/2017 6:29 AM EST) athologist Signature Glucose Lvl 151 65 - 199 [facility] mg/dL [facility] Comment: Diabetes: >=200 mg/dL plus symp toms BUN 18 10 - 20 mg/dL [facility] Creatinine 1.11 0.80 - [...] estions. Chloride 99 98 - 107 mmol/L [facility] CO2 28 22 - 31 mmol/L [facility] Anion Gap 11 5 - 15 mmol/L [facility] Calcium 7.9 (L) 8.5 - 10.5 mg/dL [facility] Estimated GFR >60 >=60 [facility] Comment: The reported eGFR should be multiplied b y 1.2 for patients. The MDRD is not an appropriate measure o f renal function for patients with body mass extremes or in patients with acute kidney failure. http://[employer]ashion/DHnkdep http://[employer]/[facility] LAWTONnkf Specimen Anatomical Collection Method Collection Time Receive d Time (Source) Location / / Volume Laterality Blood specimen 08/12/2017 6:29 AM 018 6:38 (specimen) EST AM EST Resulting Agency Comment Spec In Lab Yonathan Smith MD CHEMISTRY ORDERABLES Performing Organization Address City/[facility]/[place] [address] POCT Glucose (08/12/2017 4:08 AM EST) athologist Signature POC Glucose 181 65 - 199 [facility] mg/dL [facility] Comment: Supplemental ranges: <140 mg/dL before meals <180 mg/dL all other times of the day Specimen Anatomical Collection Method Collection Time Receive d Time (Source) Location / / Volume Laterality Blood specimen 08/12/2017 4:08 AM 018 4:08 (specimen) EST AM EST Yonathan Smith MD POINT OF CARE TEST ORDERABLE S Performing Organization Address City/[facility]/[place] [address] (ABNORMAL) POCT Glucose (08/12/2017 12:17 AM EST) athologist Signature POC Glucose 221 (H) 65 - 199 [facility] Comment: Supplemental ranges: <140 mg/dL before meals <180 mg/dL all other times of the day Specimen Anatomical Collection Method Collection Time Receive d Time (Source) Location / / Volume Laterality Blood specimen 08/12/2017 12:17 8 (specimen) AM EST 12:17 AM EST Yonathan Smith MD POINT OF CARE TEST ORDERABLE S Performing Organization Address City/State/ZIP Code Phon e Number [address] (ABNORMAL) POCT Glucose (08/11/2017 8:52 PM EST) athologist Signature POC Glucose 221 (H) 65 - 199 [facility]dL [facility] Comment: Supplemental ranges: <140 mg/dL before meals <180 mg/dL all other times of the day Specimen Anatomical Collection Method Collection Time Receive d Time (Source) Location / / Volume Laterality Blood specimen 08/11/2017 8:52 PM 018 8:52 (specimen) EST PM EST Yonathan Smith MD POINT OF CARE TEST ORDERABLE S Performing Organization Address City/State/[place] [address] POCT Glucose (08/11/2017 5:59 PM EST) athologist Signature POC Glucose 169 65 - 199 [place] [facility] mg/dL [facility] Comment: Supplemental ranges: <140 mg/dL before meals <180 mg/dL all other times of the day Specimen Anatomical Collection Method Collection Time Receive d Time (Source) Location / / Volume Laterality Blood specimen 08/11/2017 5:59 PM 018 5:59 (specimen) EST PM EST Yonathan Smith MD POINT OF CARE TEST ORDERABLE S Performing Organization Address City/State/[place] [address] (ABNORMAL) POCT Glucose (08/11/2017 4:08 PM EST) athologist Signature POC Glucose 240 (H) 65 - 199 [place] [facility] mg/dL [facility] Comment: Supplemental ranges: <140 mg/dL before meals <180 mg/dL all other times of the day Specimen Anatomical Collection Method Collection Time Receive d Time (Source) Location / / Volume Laterality Blood specimen 08/11/2017 4:08 PM 018 4:08 (specimen) EST PM EST Yonathan Smith MD POINT OF CARE TEST ORDERABLE S Performing Organization Address City/State/ZIP Code Phon e Number [address] POCT Glucose (08/11/2017 12:04 PM EST) athologist Signature POC Glucose 182 65 - 199 [place] [facility] mg/dL [facility] Comment: Supplemental ranges: <140 mg/dL before meals <180 mg/dL all other times of the day Specimen Anatomical Collection Method Collection Time Receive d Time (Source) Location / / Volume Laterality Blood specimen 08/11/2017 12:04 8 (specimen) PM EST 12:04 PM EST Yonathan Smith MD POINT OF CARE TEST ORDERABLE S Performing Organization Address City/State/ZIP Code Phon e Number [address] POCT Glucose (08/11/2017 7:31 AM EST) P athologist Signature POC Glucose 156 65 - 199 [facility] Comment: Supplemental ranges: <140 mg/dL before meals <180 mg/dL all other times of the day Specimen Anatomical Collection Method Collection Time Receive d Time (Source) Location / / Volume Laterality Blood specimen 08/11/2017 7:31 AM 018 7:31 (specimen) EST AM EST Yonathan Smith MD POINT OF CARE TEST ORDERABLE S Performing Organization Address City/State/[place] [address] (ABNORMAL) Differential, Automated (08/11/2017 6:16 AM EST) Patholo gist Method Time Signature Neutrophils % 83.7 % [facility] Neutr Abs (ANC) 10.76 (H) 1.70 - [facility] 6.10 [facility] x10(3)/[facility] L LABORATORY Lymphocytes % 6.0 % [facility] Lymphocytes Abs 0.8 (L) 0.9 - 3.2 [facility] x10(3)/[facility] LABORATORY Monocytes % 7.5 % [facility] Monocyte Abs 1.0 (H) 0.3 - 0.9 [facility] x10(3)/[facility] LABORATORY Eosinophils % 2.0 % [facility] Eosinophils Abs 0.3 0.0 - 0.4 [facility] x10(3)/[facility] LABORATORY Basophils % 0.3 % [facility] Basophils Abs 0.0 0.0 - 0.1 [facility] x10(3)/[facility] LABORATORY Immature Gran % 0.50 % [facility] [...] Organization Address City/State/[place] [address] (ABNORMAL) Hemogram (08/11/2017 6:16 AM EST) Analysis Performed At Patho logist Time Signature WBC 12.9 (H) 4.0 - 9.5 [facility] x10(3)/[facility] LABORATORY RBC 3.28 (L) 4.58 - [facility] 5.54 [facility] x10(6)/[facility] LABORATORY Hemoglobin 9.5 (L) 13.7 - [facility] 16.5 gm/dL [facility] Hematocrit 29.8 (L) 40.5 - [facility] SU 48.5 % [facility] MCV 90.9 82.9 - [facility] SU 93.1 [facility] LABORATORY MCH 29.0 27.5 - [place] [facility] 32.1 pg [facility] MCHC 31.9 (L) 32.0 - [facility] 35.7 gm/dL [facility] Platelets 236 145 - 357 [facility] x10(3)/[facility] LABORATORY RDWSD 53.5 (H) 36.0 - [place] [facility] 45.0 [facility] LABORATORY RDWCV 16.3 (H) 11.4 - [facility] SU 13.8 % [facility] MPV 8.8 7.6 - 12.9 [facility] LABORATORY nRBC % Auto 0.0 % [facility] nRBC Abs Auto 0.000 0.000 - [facility] 0.000 [facility] x10(3)/[facility] LABORATORY Specimen Anatomical Collection Method Collection Time Receive d Time (Source) Location / / Volume Laterality Blood specimen 08/11/2017 6:16 AM 018 6:24 (specimen) EST AM EST Resulting Agency Comment Spec In Lab Yonathan Smith MD HEMATOLOGY ORDERABLES Performing Organization Address City/State/ZIP [place] [address] (ABNORMAL) Prothrombin Time (08/11/2017 6:16 AM EST) athologist Signature PT 15.5 (H) 11.8 - 14.0 [facility] LABORATORY INR 1.3 (H) 0.9 - 1.1 [facility] [...] Organization Address City/State/ZIP [place] [address] Basic Metabolic Panel (non-fasting) (08/11/2017 6:16 AM EST) P athologist Signature Glucose Lvl 139 65 - 199 [facility] mg/dL [facility] Comment: Diabetes: >=200 mg/dL plus symp toms BUN 12 10 - 20 mg/dL [facility] Creatinine 0.91 0.80 - [...] 15 mmol/L [facility] Calcium 8.5 8.5 - 10.5 mg/dL [facility] Estimated GFR >60 >=60 [facility] Comment: The reported eGFR should be multiplied b y 1.2 for patients. The MDRD is not an appropriate measure o f renal function for patients with body mass extremes or in patients with acute kidney failure. http://[employer]/DHnkdep http://[employer]/DHMCnkf Specimen Anatomical Collection Method Collection Time Receive d Time (Source) Location / / Volume Laterality Blood specimen 08/11/2017 6:16 AM 018 6:24 (specimen) EST AM EST Resulting Agency Comment Spec In Lab Yonathan Smith MD CHEMISTRY ORDERABLES Performing Organization Address City/State/ZIP [place] [address] POCT Glucose (08/11/2017 4:07 AM EST) P athologist Signature POC Glucose 162 65 - 199 [facility] mg/dL [facility] Comment: Supplemental ranges: <140 mg/dL before meals <180 mg/dL all other times of the day Specimen Anatomical Collection Method Collection Time Receive d Time (Source) Location / / Volume Laterality Blood specimen 08/11/2017 4:07 AM 018 4:07 (specimen) EST AM EST Yonathan Smith MD POINT OF CARE TEST ORDERABLE S Performing Organization Address City/[facility]/ZIP [place] [address] POCT Glucose (08/10/2017 11:59 PM EST) athologist Signature POC Glucose 166 65 - 199 [place] [facility] mg/dL [facility] Comment: Supplemental ranges: <140 mg/dL before meals <180 mg/dL all other times of the day Specimen Anatomical Collection Method Collection Time Receive d Time (Source) Location / / Volume Laterality Blood specimen 08/10/2017 11:59 8 (specimen) PM EST 11:59 PM EST Yonathan Smith MD POINT OF CARE TEST ORDERABLE S Performing Organization Address City/[facility]/ZIP Code Phon e Number [place] [address] POCT Glucose (08/10/2017 8:12 PM EST) athologist Signature POC Glucose 156 65 - 199 [facility] mg/dL [facility] Comment: Supplemental ranges: <140 mg/dL before meals <180 mg/dL all other times of the day Specimen Anatomical Collection Method Collection Time Receive d Time (Source) Location / / Volume Laterality Blood specimen 08/10/2017 8:12 PM 018 8:12 (specimen) EST PM EST Yonathan Smith MD POINT OF CARE TEST ORDERABLE S Performing Organization Address City/[facility]/ZIP Code Ph[place] [address] (ABNORMAL) POCT Glucose (08/10/2017 4:42 PM EST) athologist Signature POC Glucose 211 (H) 65 - 199 [place] [facility] mg/dL [facility] Comment: Supplemental ranges: <140 mg/dL before meals <180 mg/dL all other times of the day Specimen Anatomical Collection Method Collection Time Receive d Time (Source) Location / / Volume Laterality Blood specimen 08/10/2017 4:42 PM 018 4:42 (specimen) EST PM EST Yonathan Smith MD POINT OF CARE TEST ORDERABLE S Performing Organization Address City/State/ZIP [place] [address] [facility] [address] Drive (ABNORMAL) Differential, Automated (08/10/2017 2:30 PM EST) [facility] Method Time Signature Neutrophils % 87.6 % [facility]OR[facility]ORY Neutr Abs (ANC) 9.90 (H) 1.70 - [facility] 6.10 [facility] x10(3)/[facility] L LABORATORY Lymphocytes % 4.3 % [facility]ORY Lymphocytes Abs 0.5 (L) 0.9 - 3.2 [facility] x10(3)/[facility] LABORATORY Monocytes % 6.0 % [facility] Monocyte Abs 0.7 0.3 - 0.9 [facility] x10(3)/[facility] LABORATORY Eosinophils % 1.1 % [facility]ORY Eosinophils Abs 0.1 0.0 - 0.4 [facility] x10(3)/[facility] LABORATORY Basophils % 0.4 % [facility] Basophils Abs 0.0 0.0 - 0.1 [facility] x10(3)/[facility] LABORATORY Immature Gran % 0.60 % [facility] [...] Smiht MD HEMATOLOGY ORDERABLES Performing Organization Address City/State/ZIP [place] [address] (ABNORMAL) Hemogram (08/10/2017 2:30 PM EST) Analysis Performed At Patho logist Time Signature WBC 11.3 (H) 4.0 - 9.5 [facility](3[facility] LABORATORY RBC 3.13 (L) 4.58 - [place] [facility] 5.54 [facility] x10(6)/[facility] LABORATORY Hemoglobin 8.9 (L) 13.7 - [facility] 16[facility] gm/dL [facility] Hematocrit 28.4 (L) 40.5 - [facility] 48.5 % [facility] MCV 90.7 82.9 - [facility] 93.1 [facility] LABORATORY MCH 28.4 27.5 - [facility] 32.1 pg [facility] MCHC 31.3 (L) 32.0 - [facility] 35.7 gm/dL [facility] Platelets 213 145 - 357 [facility] x10(3)/[facility] LABORATORY RDWSD 53.7 (H) 36.0 - [facility] 45.0 [facility] LABORATORY RDWCV 16.4 (H) 11.4 - [facility] 13.8 % [facility] MPV 8.9 7.6 - 12.9 [facility] LABORATORY nRBC % Auto 0.0 % [facility]ORY nRBC Abs Auto 0.000 0.000 - [facility] 0.000 [facility] x10(3)/[facility] LABORATORY Specimen Anatomical Collection Method Collection Time Receive d Time (Source) Location / / Volume Laterality Blood specimen 08/10/2017 2:30 PM 018 2:48 (specimen) EST PM EST Resulting Agency Comment Spec In Lab Yonathan Smith MD HEMATOLOGY ORDERABLES Performing Organization Address City/State/ZIP [place] [address] (ABNORMAL) POCT Glucose (08/10/2017 1:50 PM EST) P athologist Signature POC Glucose 243 (H) 65 - 199 [facility] mg/dL [facility] Comment: Supplemental ranges: <140 mg/dL before meals <180 mg/dL all other times of the day Specimen Anatomical Collection Method Collection Time Receive d Time (Source) Location / / Volume Laterality Blood specimen 08/10/2017 1:50 PM 018 1:50 (specimen) EST PM EST Yonathan Smith MD POINT OF CARE TEST ORDERABLE S Performing Organization Address City/State/ZIP Code Phon e Number [address] POCT Glucose (08/10/2017 11:21 AM EST) P athologist Signature POC Glucose 156 65 - 199 [facility] mg/dL [facility] Comment: Supplemental ranges: <140 mg/dL before meals <180 mg/dL all other times of the day Specimen Anatomical Collection Method Collection Time Receive d Time (Source) Location / / Volume Laterality Blood specimen 08/10/2017 11:21 8 (specimen) AM EST 11:21 AM EST Yonathan Smith MD POINT OF CARE TEST ORDERABLE S Performing Organization Address City/State/[place] [address] (ABNORMAL) Differential, Automated (08/10/2017 10:28 AM EST) Patholo gist Method Time Signature Neutrophils % 85.3 % [facility] LABORATORY Neutr Abs (ANC) 9.43 (H) 1.70 - [facility] 6.10 [facility] x10(3)/[facility] L LABORATORY Lymphocytes % 5.5 % [facility] LABORATORY Lymphocytes Abs 0.6 (L) 0.9 - 3.2 [facility] x10(3)/[facility] LABORATORY Monocytes % 5.9 % [facility] LABORATORY Monocyte Abs 0.6 0.3 - 0.9 [facility] x10(3)/[facility] LABORATORY Eosinophils % 2.1 % [facility] LABORATORY Eosinophils Abs 0.2 0.0 - 0.4 [facility] x10(3)/[facility] LABORATORY Basophils % 0.4 % [facility] LABORATORY Basophils Abs 0.0 0.0 - 0.1 [facility] x10(3)/[facility] LABORATORY Immature Gran % 0.80 % [facility] LABORATORY Comment: [...] Organization Address City/State/[place] [address] (ABNORMAL) Hemogram (08/10/2017 10:28 AM EST) Analysis Performed At Patho logist Time Signature WBC 11.0 (H) 4.0 - 9.5 [facility] x10(3)/[facility] LABORATORY RBC 3.02 (L) 4.58 - [facility] 5.54 [facility] x10(6)/[facility] LABORATORY Hemoglobin 8.8 (L) 13.7 - [facility] 16.5 gm/dL [facility] LABORATORY Hematocrit 28.1 (L) 40.5 - [facility] SU 48.5 % [facility] LABORATORY MCV 93.0 82.9 - [facility] 93.1 [facility] LABORATORY MCH 29.1 27.5 - [facility] 32.1 pg [facility] LABORATORY MCHC 31.3 (L) 32.0 - [facility] 35.7 gm/dL [facility] LABORATORY Platelets 207 145 - 357 [facility] x10(3)/[facility] LABORATORY RDWSD 55.3 (H) 36.0 - [facility] 45.0 [facility] LABORATORY RDWCV 16.4 (H) 11.4 - [facility] 13.8 % [facility] LABORATORY MPV 9.0 7.6 - 12.9 [facility] LABORATORY nRBC % Auto 0.0 % [facility] LABORATORY nRBC Abs Auto 0.000 0.000 - [facility] 0.000 [facility] x10(3)/[facility] LABORATORY Specimen Anatomical Collection Method Collection Time Receive d Time (Source) Location / / Volume Laterality Blood specimen 08/10/2017 10:28 8 (specimen) AM EST 10:35 AM EST Resulting Agency Comment Spec In Lab Yonathan Smith MD HEMATOLOGY ORDERABLES Performing Organization Address City/State/ZIP [place] [address] VS Angiogram/intervention (vascular) (08/10/2017 [...] 2.5x80 5. Completion RLE angiogram 6. L DIE ATTACHER angiogram 7. 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 L DIE ATTACHER access in the distal L DIE ATTACHER. - Closure device: Mynx Technical Procedure: ?The [...] for a 45cm 5F Destination. V18 and Coleman a nd QuickCross catheters were used to [...] bifurcation. Access appeared in the distal R DIE ATTACHER. Closure and sheath removal was performed with [...] 2.5x80 5. Completion RLE angiogram 6. L DIE ATTACHER angiogram 7. 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 L DIE ATTACHER access in the distal L DIE ATTACHER. - Closure device: Mynx Technical Procedure: The [...] for a 45cm 5F Destination. V18 and Coleman a nd QuickCross catheters were used to [...] bifurcation. Access appeared in the distal R DIE ATTACHER. Closure and sheath removal was performed with [...] (ABNORMAL) Differential, Automated (08/10/2017 5:50 AM EST) [facility] Method Time Signature Neutrophils % 80.1 % [facility] LABORATORY Neutr Abs (ANC) 9.01 (H) 1.70 - [facility] 6.10 [facility] x10(3)/[facility] LABORATORY Lymphocytes % 8.8 % [facility] LABORATORY Lymphocytes Abs 1.0 0.9 - 3.2 [facility] x10(3)/[facility] LABORATORY Monocytes % 8.3 % [facility] LABORATORY Monocyte Abs 0.9 0.3 - 0.9 [facility] x10(3)/[facility] LABORATORY Eosinophils % 2.0 % [facility] LABORATORY Eosinophils Abs 0.2 0.0 - 0.4 [facility] x10(3)/[facility] LABORATORY Basophils % 0.4 % [facility] LABORATORY Basophils Abs 0.0 0.0 - 0.1 [facility] x10(3)/[facility] LABORATORY Immature Gran % 0.40 % [facility] [...] Organization Address City/State/[place] [address] (ABNORMAL) Hemogram (08/10/2017 5:50 AM EST) Analysis Performed At Patho logist Time Signature WBC 11.3 (H) 4.0 - 9.5 [facility] x[facility](3[facility] LABORATORY RBC 3.15 (L) 4.58 - [facility] 5.54 [facility] x10(6)/[facility] LABORATORY Hemoglobin 8.9 (L) 13.7 - [facility] 16.5 gm/dL [facility] LABORATORY Hematocrit 29.0 (L) 40.5 - [facility] 48.5 % [facility] LABORATORY MCV 92.1 82.9 - [facility] 93.1 [facility] LABORATORY MCH 28.3 27.5 - [place] [facility] 32.1 pg [facility] LABORATORY MCHC 30.7 (L) 32.0 - [facility] 35.7 gm/dL [facility] LABORATORY Platelets 231 145 - 357 [facility] x10(3)/[facility] LABORATORY RDWSD 53.9 (H) 36.0 - [facility] 45.0 [facility] LABORATORY RDWCV 16.2 (H) 11.4 - [facility] 13.8 % [facility] LABORATORY MPV 8.7 7.6 - 12.9 [facility] nRBC % Auto 0.0 % [facility] LABORATORY nRBC Abs Auto 0.000 0.000 - [facility] SU 0.000 [facility] x10(3)/[facility] LABORATORY Specimen Anatomical Collection Method Collection Time Receive d Time (Source) Location / / Volume Laterality Blood specimen 08/10/2017 5:50 AM 018 5:59 (specimen) EST AM EST Resulting Agency Comment Spec In Lab Yonathan Smith MD HEMATOLOGY ORDERABLES Performing Organization Address City/State/[place] [address] (ABNORMAL) Basic Metabolic Panel (non-fasting) (08/10/2017 5:50 AM EST) athologist Signature Glucose Lvl 135 65 - 199 [facility] mg/dL [facility] LABORATORY Comment: Diabetes: >=200 mg/dL plus symp toms BUN 17 10 - 20 mg/dL [facility] LABORATORY Creatinine 1.05 0.80 - [...] 15 mmol/L [facility] LABORATORY Calcium 8.1 (L) 8.5 - 10.5 mg/dL [facility] LABORATORY Estimated GFR >60 >=60 [facility] LABORATORY Comment: The reported eGFR should be multiplied b y 1.2 for patients. The MDRD is not an appropriate measure o f renal function for patients with body mass extremes or in patients with acute kidney failure. http://[employer].Affashion/DHnkdep http://[employer]/DHMCnkf Specimen Anatomical Collection Method Collection Time Receive d Time (Source) Location / / Volume Laterality Blood specimen 08/10/2017 5:50 AM 018 5:59 (specimen) EST AM EST Resulting Agency Comment Spec In Lab Yonathan Smith MD CHEMISTRY ORDERABLES Performing Organization Address City/State/ZIP [place] [address] (ABNORMAL) Prothrombin Time (08/10/2017 5:50 AM EST) athologist Signature PT 16.8 (H) 11.8 - 14.0 [facility] LABORATORY INR 1.4 (H) 0.9 - 1.1 [facility] Smith MD HEMATOLOGY ORDERABLES Performing Organization Address City/[facility]/[place] [address] (ABNORMAL) POCT Glucose (08/10/2017 4:01 AM EST) athologist Signature POC Glucose 206 (H) 65 - 199 [facility] mg/dL [facility] LABORATORY Comment: Supplemental ranges: <140 mg/dL before meals <180 mg/dL all other times of the day Specimen Anatomical Collection Method Collection Time Receive d Time (Source) Location / / Volume Laterality Blood specimen 08/10/2017 4:01 AM 018 4:01 (specimen) EST AM EST Yonathan Smith MD POINT OF CARE TEST ORDERABLE S Performing Organization Address City/[facility]/[place] [address] POCT Glucose (08/10/2017 2:01 AM EST) P athologist Signature POC Glucose 188 65 - 199 [facility] mg/dL [facility] LABORATORY Comment: Supplemental ranges: <140 mg/dL before meals <180 mg/dL all other times of the day Specimen Anatomical Collection Method Collection Time Receive d Time (Source) Location / / Volume Laterality Blood specimen 08/10/2017 2:01 AM 018 2:01 (specimen) EST AM EST Yonathan Smith MD POINT OF CARE TEST ORDERABLE S Performing Organization Address City/State/[place] [address] (ABNORMAL) POCT Glucose (08/09/2017 11:42 PM EST) athologist Signature POC Glucose 283 (H) 65 - 199 [facility] mg/dL [facility] LABORATORY Comment: Supplemental ranges: <140 mg/dL before meals <180 mg/dL all other times of the day Specimen Anatomical Collection Method Collection Time Receive d Time (Source) Location / / Volume Laterality Blood specimen 08/09/2017 11:42 8 (specimen) PM EST 11:42 PM EST Yonathan Smith MD POINT OF CARE TEST ORDERABLE S Performing Organization Address City/[facility]/[place] [address] POCT Glucose (08/09/2017 8:55 PM EST) athologist Signature POC Glucose 182 65 - 199 [facility] mg/dL [facility] LABORATORY Comment: Supplemental ranges: <140 mg/dL before meals <180 mg/dL all other times of the day Specimen Anatomical Collection Method Collection Time Receive d Time (Source) Location / / Volume Laterality Blood specimen 08/09/2017 8:55 PM 018 8:55 (specimen) EST PM EST Yonathan Smith MD POINT OF CARE TEST ORDERABLE S Performing Organization Address City/State/[place] [address] (ABNORMAL) APTT (08/09/2017 6:42 PM EST) athologist Signature PTT 90 (H) 25 - 35 sec [facility] Smith MD HEMATOLOGY ORDERABLES Performing Organization Address City/[facility]/ZIP Code Phon e Number [address] POCT Glucose (08/09/2017 4:41 PM EST) athologist Signature POC Glucose 195 65 - 199 [facility] mg/dL [facility] LABORATORY Comment: Supplemental ranges: <140 mg/dL before meals <180 mg/dL all other times of the day Specimen Anatomical Collection Method Collection Time Receive d Time (Source) Location / / Volume Laterality Blood specimen 08/09/2017 4:41 PM 018 4:41 (specimen) EST PM EST Yonathan Smith MD POINT OF CARE TEST ORDERABLE S Performing Organization Address City/[facility]/ZIP Code Phon e Number [address] POCT Glucose (08/09/2017 12:29 PM EST) athologist Signature POC Glucose 140 65 - 199 [facility] mg/dL [facility] LABORATORY Comment: Supplemental ranges: <140 mg/dL before meals <180 mg/dL all other times of the day Specimen Anatomical Collection Method Collection Time Receive d Time (Source) Location / / Volume Laterality Blood specimen 08/09/2017 12:29 8 (specimen) PM EST 12:29 PM EST Yonathan Smith MD POINT OF CARE TEST ORDERABLE S Performing Organization Address City/[facility]/[place] [address] POCT Glucose (08/09/2017 9:59 AM EST) athologist Signature POC Glucose 135 65 - 199 [facility] SU mg/dL [facility] LABORATORY Comment: Supplemental ranges: <140 mg/dL before meals <180 mg/dL all other times of the day Specimen Anatomical Collection Method Collection Time Receive d Time (Source) Location / / Volume Laterality Blood specimen 08/09/2017 9:59 AM 018 9:59 (specimen) EST AM EST Yonathan Smith MD POINT OF CARE TEST ORDERABLE S Performing Organization Address City/[facility]/ZIP Code Phon e Number [address] Specimen to Pathology (08/09/2017 8:41 AM EST) Specimen Anatomical Collection Method Collection Time Receive d Time (Source) Location / / Volume Laterality AP Specimen 08/09/2017 8:41 AM 8 8:41 EST AM EST Narrative [facility] LABORAT ORY - 08/09/2017 8:41 AM EST Specimen requisition ordered. ??Separate Pathology report to follow Yonathan Smith MD PATHOLOGY/CYTOLOGY ORDERABLE S Performing Organization Address [facility]/ZIP Code Phon e Number [address] Surgical Pathology Report (08/09/2017 8:40 AM EST) Component Value Ref Test Analysis Performed At [facility] Range Method Time Signature Surgical [id number] ? Location: [facility]; [facility]; [facility] Report The signing pathologist has (i) examined the relevant preparation(s) for the [facility] specimen(s) and (ii) rendered or confirmed the diagnosis(es) . HOSPITAL LABORATORY . 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 ?Viable proximal resection margins. Electronically signed by: ??Henrique Saravia MD Verified: ??08/13/2017 ?Pathologist Performed at: ??-[facility] Dept. of Pathology, [place], [place] CLINICAL INFORMATION Specimen Submitted: A - [...] Organization Address City/State/[place] [address] Anaerobic Culture (08/09/2017 8:30 AM EST) [employer] Method Time Signature Anaerobic No anaerobic [facility] Culture organisms [facility] LABORATORY Specimen Anatomical Collection Method Collection [...] Organization Address City/State/[place] [address] (ABNORMAL) Abscess/Wound Aspirate Culture (08/09/2017 8:30 AM EST) Patholo gist Method Time Signature Abscess/Wound Moderate mixed [facility] Aspirate bacterial [facility] Culture morphotypes [facility] normal LABORATORY cutaneous leroy (A) Gram Stain Rare White Blood Cells [place] Few Gram Positive Cocci in pairs [facility] (A) [facility] LABORATORY Organism Gram Positive [place] Cocci in pairs [facility] (A) [facility] LABORATORY Specimen Anatomical Collection Method Collection Time Receive d Time (Source) Location / / Volume Laterality Specimen from STRUCTURE OF RIGHT 08/09/2017 8:30 AM 9:10 abscess FOOT / Unknown EST AM EST (specimen) Comment: SWAB RIGHT GREAT TOE ABSCESS FO R AEROBIC AND ANAEROBIC CULTURES. Resulting Agency Comment Spec In Lab Yonathan Smith MD MICROBIOLOGY - GENERAL ORDER ROBSON Performing Organization Address City/[facility]/ZIP Code Phon e Number [address] POCT Glucose (08/09/2017 4:28 AM EST) P athologist Signature POC Glucose 128 65 - 199 [facility] mg/dL [facility] LABORATORY Comment: Supplemental ranges: <140 mg/dL before meals <180 mg/dL all other times of the day Specimen Anatomical Collection Method Collection Time Receive d Time (Source) Location / / Volume Laterality Blood specimen 08/09/2017 4:28 AM 018 4:28 (specimen) EST AM EST Yonathan Smith MD POINT OF CARE TEST ORDERABLE S Performing Organization Address City/[facility]/ZIP Code Phon e Number [address] ABORH Recheck Status (08/09/2017 1:10 AM EST) [facility] gist Method Time Signature ABORH Type Completed [facility] LABORATORY Specimen Anatomical Collection Method Collection Time Receive d Time (Source) Location / / Volume Laterality Blood specimen 08/09/2017 1:10 AM 018 1:35 (specimen) EST AM EST Resulting Agency Comment Spec In Lab Yonathan Smith MD BLOOD BANK ORDERABLES Performing Organization Address City/[facility]/[place] [address] Antibody screen (08/09/2017 1:10 AM EST) Patholo gist Method Time Signature Ab Screen Negative [facility] LABORATORY Expires at 08/12/2017 [place] ZHAOSU [id number] on: [facility] LABORATORY Specimen Anatomical Collection Method Collection Time Receive d Time (Source) Location / / Volume Laterality Blood specimen 08/09/2017 1:10 AM 018 1:35 (specimen) EST AM EST Resulting Agency Comment Spec In Lab Yonathan Smith MD BLOOD BANK ORDERABLES Performing Organization Address City/[facility]/[place] [address] ABO/Rh Typing (08/09/2017 1:10 AM EST) P athologist Signature ABORh Type O Pos [facility] LABORATORY Specimen Anatomical Collection Method Collection Time Receive d Time (Source) Location / / Volume Laterality Blood specimen 08/09/2017 1:10 AM 018 1:35 (specimen) EST AM EST Resulting Agency Comment Spec In Lab Yonathan Smith MD BLOOD BANK ORDERABLES Performing Organization Address City/[facility]/[place] [address] (ABNORMAL) APTT (08/09/2017 1:10 AM EST) P athologist Signature PTT 86 (H) 25 - 35 sec [facility] [...] Smith MD HEMATOLOGY ORDERABLES Performing Organization Address City/[facility]/[place] [address] (ABNORMAL) Differential, Automated (08/09/2017 1:10 AM EST) Patholo gist Method Time Signature Neutrophils % 76.2 % [facility] LABORATORY Neutr Abs (ANC) 8.59 (H) 1.70 - [facility] 6.10 [facility] x10(3)/[facility] LABORATORY Lymphocytes % 11.0 % [facility] LABORATORY Lymphocytes Abs 1.2 0.9 - 3.2 [facility] x10(3)/[facility] LABORATORY Monocytes % 8.4 % [facility] LABORATORY Monocyte Abs 1.0 (H) 0.3 - 0.9 [facility] x10(3)/[facility] LABORATORY Eosinophils % 3.5 % [facility] LABORATORY Eosinophils Abs 0.4 0.0 - 0.4 [facility] x10(3)/[facility] LABORATORY Basophils % 0.5 % [facility] LABORATORY Basophils Abs 0.1 0.0 - 0.1 [facility] x10(3)/[facility] LABORATORY Immature Gran % 0.40 % [facility] [...] Organization Address City/State/ZIP [place] [address] (ABNORMAL) Hemogram (08/09/2017 1:10 AM EST) Analysis Performed At Patho logist Time Signature WBC 11.3 (H) 4.0 - 9.5 [facility] x10(3)/[facility] LABORATORY RBC 3.47 (L) 4.58 - [facility] SU 5.54 [facility] x10(6)/[facility] LABORATORY Hemoglobin 10.0 (L) 13.7 - [facility] 16.5 gm/dL [facility] LABORATORY Hematocrit 31.9 (L) 40.5 - [facility] 48.5 % [facility] LABORATORY MCV 91.9 82.9 - [facility] 93.1 [facility] LABORATORY MCH 28.8 27.5 - [facility] 32.1 pg [facility] LABORATORY MCHC 31.3 (L) 32.0 - [facility] 35.7 gm/dL [facility] LABORATORY Platelets 234 145 - 357 [facility] x10(3)/[facility] LABORATORY RDWSD 54.0 (H) 36.0 - [facility] 45.0 [facility] RDWCV 16.2 (H) 11.4 - [facility] 13.8 % [facility] LABORATORY MPV 8.7 7.6 - 12.9 [facility] LABORATORY nRBC % Auto 0.0 % [facility] LABORATORY nRBC Abs Auto 0.000 0.000 - [facility] 0.000 [facility] x10(3)/[facility] LABORATORY Specimen Anatomical Collection Method Collection Time Receive d Time (Source) Location / / Volume Laterality Blood specimen 08/09/2017 1:10 AM 018 1:19 (specimen) EST AM EST Resulting Agency Comment Spec In Lab Yonathan Smith MD HEMATOLOGY ORDERABLES Performing Organization Address City/State/ZIP [place] [address] (ABNORMAL) Prothrombin Time (08/09/2017 1:10 AM EST) athologist Signature PT 16.0 (H) 11.8 - 14.0 [facility] LABORATORY INR 1.3 (H) 0.9 - 1.1 [facility] [...] Organization Address City/State/ZIP [place] [address] (ABNORMAL) Basic Metabolic Panel (non-fasting) (08/09/2017 1:10 AM EST) athologist Signature Glucose Lvl 108 65 - 199 [facility] mg/dL [facility] LABORATORY Comment: Diabetes: >=200 mg/dL plus symp toms BUN 34 (H) 10 - 20 mg/dL [facility] LABORATORY Creatinine 1.54 (H) 0.80 [...] Chloride 96 (L) 98 - 107 mmol/L [facility] LABORATORY CO2 29 22 - 31 mmol/L [facility] LABORATORY Anion Gap 13 5 - 15 mmol/L [facility] LABORATORY Calcium 8.3 (L) 8.5 - 10.5 mg/dL [facility] LABORATORY Estimated GFR 45 (L) >=60 [facility] LABORATORY Comment: The reported eGFR should be multiplied b y 1.2 for patients. The MDRD is not an appropriate measure o f renal function for patients with body mass extremes or in patients with acute kidney failure. http://[employer]/DHnkdep http://[employer]/DHMCnkf Specimen Anatomical Collection Method Collection Time Receive d Time (Source) Location / / Volume Laterality Blood specimen 08/09/2017 1:10 AM 018 1:19 (specimen) EST AM EST Resulting Agency Comment Spec In Lab Yonathan Smith MD CHEMISTRY ORDERABLES Performing Organization Address City/State/ZIP Code Phon e Number [address] POCT Glucose (08/09/2017 12:05 AM EST) athologist Signature POC Glucose 128 65 - 199 [facility]dL [facility] LABORATORY Comment: Supplemental ranges: <140 mg/dL before meals <180 mg/dL all other times of the day Specimen Anatomical Collection Method Collection Time Receive d Time (Source) Location / / Volume Laterality Blood specimen 08/09/2017 12:05 8 (specimen) AM EST 12:05 AM EST Yonathan Smith MD POINT OF CARE TEST ORDERABLE S Performing Organization Address City/[facility]/[place] [address] (ABNORMAL) POCT Glucose (08/08/2017 7:36 PM EST) athologist Signature POC Glucose 215 (H) 65 - 199 [facility]dL [facility] Comment: Supplemental ranges: <140 mg/dL before meals <180 mg/dL all other times of the day Specimen Anatomical Collection Method Collection Time Receive d Time (Source) Location / / Volume Laterality Blood specimen 08/08/2017 7:36 PM 018 7:36 (specimen) EST PM EST Yonathan Smith MD POINT OF CARE TEST ORDERABLE S Performing Organization Address City/[facility]/ZIP Code Phon e Number [address] (ABNORMAL) POCT Glucose (08/08/2017 6:23 PM EST) athologist Signature POC Glucose 216 (H) 65 - 199 [place] mg/dL [facility] Comment: Supplemental ranges: <140 mg/dL before meals <180 mg/dL all other times of the day Specimen Anatomical Collection Method Collection Time Receive d Time (Source) Location / / Volume Laterality Blood specimen 08/08/2017 6:23 PM 018 6:23 (specimen) EST PM EST Yonathan Smith MD POINT OF CARE TEST ORDERABLE S Performing Organization Address City/[facility]/[place] [address] (ABNORMAL) APTT (08/08/2017 6:00 PM EST) athologist Signature PTT 97 (H) 25 - 35 sec [facility] Smith MD HEMATOLOGY ORDERABLES Performing Organization Address City/[facility]/[place] [address] POCT Glucose (08/08/2017 4:42 PM EST) athologist Signature POC Glucose 78 65 - 199 [facility] Comment: Supplemental ranges: <140 mg/dL before meals <180 mg/dL all other times of the day Specimen Anatomical Collection Method Collection Time Receive d Time (Source) Location / / Volume Laterality Blood specimen 08/08/2017 4:42 PM 018 4:42 (specimen) EST PM EST Yonathan Smith MD POINT OF CARE TEST ORDERABLE S Performing Organization Address City/[facility]/[place] [address] (ABNORMAL) POCT Glucose (08/08/2017 4:01 PM EST) athologist Signature POC Glucose 58 (L) 65 - 199 [facility] mg/dL [facility] Comment: Supplemental ranges: <140 mg/dL before meals <180 mg/dL all other times of the day Specimen Anatomical Collection Method Collection Time Receive d Time (Source) Location / / Volume Laterality Blood specimen 08/08/2017 4:01 PM 018 4:01 (specimen) EST PM EST Yonathan Smith MD POINT OF CARE TEST ORDERABLE S Performing Organization Address City/[facility] Phon e Number [address] POCT Glucose (08/08/2017 11:51 AM EST) athologist Signature POC Glucose 90 65 - 199 [facility] mg/dL [facility] Comment: Supplemental ranges: <140 mg/dL before meals <180 mg/dL all other times of the day Specimen Anatomical Collection Method Collection Time Receive d Time (Source) Location / / Volume Laterality Blood specimen 08/08/2017 11:51 8 (specimen) AM EST 11:51 AM EST Yonathan Smith MD POINT OF CARE TEST ORDERABLE S Performing Organization Address [facility] [place] [address] (ABNORMAL) APTT (08/08/2017 10:27 AM EST) athologist Signature PTT 64 (H) 25 - 35 sec [facility] Organization Address City/State/[place] [address] POCT Glucose (08/08/2017 8:02 AM EST) athologist Signature POC Glucose 178 65 - 199 [facility] mg/dL [facility] Comment: Supplemental ranges: <140 mg/dL before meals <180 mg/dL all other times of the day Specimen Anatomical Collection Method Collection Time Receive d Time (Source) Location / / Volume Laterality Blood specimen 08/08/2017 8:02 AM 018 8:02 (specimen) EST AM EST Yonathan Smith MD POINT OF CARE TEST ORDERABLE S Performing Organization Address City/[facility]/ZIP Code Phon e Number [address] (ABNORMAL) APTT (08/08/2017 4:51 AM EST) athologist Signature PTT >160 25 - 35 [facility] ([facility] Comment: Called by: HOWARD, Read back [...] Smith MD HEMATOLOGY ORDERABLES Performing Organization Address City/[facility]/ZIP Code Phon e Number [address] (ABNORMAL) Differential, Automated (08/08/2017 4:51 AM EST) Patholo gist Method Time Signature Neutrophils % 77.9 % [facility] LABORATORY Neutr Abs (ANC) 8.17 (H) 1.70 - [facility] 6.10 [facility] x10(3)/[facility] LABORATORY Lymphocytes % 10.3 % [facility] LABORATORY Lymphocytes Abs 1.1 0.9 - 3.2 [facility] x10(3)/[facility] LABORATORY Monocytes % 7.0 % [facility] LABORATORY Monocyte Abs 0.7 0.3 - 0.9 [facility] x10(3)/[facility] LABORATORY Eosinophils % 3.6 % [facility] LABORATORY Eosinophils Abs 0.4 0.0 - 0.4 [facility] x10(3)/[facility] LABORATORY Basophils % 0.5 % [facility] LABORATORY Basophils Abs 0.0 0.0 - 0.1 [facility] x10(3)/[facility] LABORATORY Immature Gran % 0.70 % [facility] LABORATORY Comment: [...] Organization Address City/State/ZIP [place] [address] (ABNORMAL) Hemogram (08/08/2017 4:51 AM EST) Analysis Performed At Patho logist Time Signature WBC 10.5 (H) 4.0 - 9.5 [facility] x10(3)/[facility] LABORATORY RBC 3.27 (L) 4.58 - [facility] 5.54 [facility] x10(6)/[facility] LABORATORY Hemoglobin 9.3 (L) 13.7 - [place] [facility] 16.5 gm/dL [facility]ORATORY Hematocrit 30.3 (L) 40.5 - [place] 48.5 % [facility]AT[facility] MCV 92.7 82.9 - [facility] 93.1 [facility] LABORATORY MCH 28.4 27.5 - [facility] 32.1 pg [facility] LABORATORY MCHC 30.7 (L) 32.0 - [place] [facility] 35.7 gm/dL [facility] LABORATORY Platelets 252 145 - 357 [facility] x10(3)/[facility] LABORATORY RDWSD 54.6 (H) 36.0 - [place] 45.0 [facility] LABORATORY RDWCV 16.2 (H) 11.4 - [facility] SU 13.8 % [facility] LABORATORY MPV 9.1 7.6 - 12.9 [facility] LABORATORY nRBC % Auto 0.0 % [facility] LABORATORY nRBC Abs Auto 0.000 0.000 - [facility] SU 0.000 [facility] x10(3)/[facility] LABORATORY Specimen Anatomical Collection Method Collection Time Receive d Time (Source) Location / / Volume Laterality Blood specimen 08/08/2017 4:51 AM 018 5:14 (specimen) EST AM EST Resulting Agency Comment Spec In Lab Yonathan Smith MD HEMATOLOGY ORDERABLES Performing Organization Address City/State/ZIP [place] [address] (ABNORMAL) Prothrombin Time (08/08/2017 4:51 AM EST) P athologist Signature PT 18.1 (H) 11.8 - 14.0 [facility] LABORATORY INR 1.5 (H) 0.9 - [...] Organization Address City/State/ZIP [place] [address] (ABNORMAL) Basic Metabolic Panel (non-fasting) (08/08/2017 4:51 AM EST) P athologist Signature Glucose Lvl 229 (H) 65 - 199 [facility] mg/dL [facility] Comment: Diabetes: >=200 mg/dL plus symp toms BUN 35 (H) 10 - 20 mg/dL [facility] LABORATORY Creatinine 1.57 (H) 0.80 [...] Chloride 94 (L) 98 - 107 mmol/L [facility] LABORATORY CO2 25 22 - 31 mmol/L [facility] LABORATORY Anion Gap 17 (H) 5 - 15 mmol/L [facility] LABORATORY Calcium 7.9 (L) 8.5 - 10.5 mg/dL [facility] LABORATORY Estimated GFR 44 (L) >=60 [facility] LABORATORY Comment: The reported eGFR should be multiplied b y 1.2 for patients. The MDRD is not an appropriate measure o f renal function for patients with body mass extremes or in patients with acute kidney failure. http://[employer]/DHnkdep http://[employer]/DHMCnkf Specimen Anatomical Collection Method Collection Time Receive d Time (Source) Location / / Volume Laterality Blood specimen 08/08/2017 4:51 AM 018 5:14 (specimen) EST AM EST Resulting Agency Comment Spec In Lab Yonathan Smith MD CHEMISTRY ORDERABLES Performing Organization Address City/[facility]/ZIP Code Phon e Number [address] POCT Glucose (08/08/2017 4:20 AM EST) athologist Signature POC Glucose 193 65 - 199 [facility] mg/dL [facility] Comment: Supplemental ranges: <140 mg/dL before meals <180 mg/dL all other times of the day Specimen Anatomical Collection Method Collection Time Receive d Time (Source) Location / / Volume Laterality Blood specimen 08/08/2017 4:20 AM 018 4:20 (specimen) EST AM EST Yonathan Smith MD POINT OF CARE TEST ORDERABLE S Performing Organization Address City/[facility]/[place] [address] POCT Glucose (08/07/2017 11:11 PM EST) athologist Signature POC Glucose 124 65 - 199 [facility]dL [facility] Comment: Supplemental ranges: <140 mg/dL before meals <180 mg/dL all other times of the day Specimen Anatomical Collection Method Collection Time Receive d Time (Source) Location / / Volume Laterality Blood specimen 08/07/2017 11:11 8 (specimen) PM EST 11:11 PM EST Yonathan Smith MD POINT OF CARE TEST ORDERABLE S Performing Organization Address City/[facility]/[place] [address] (ABNORMAL) APTT (08/07/2017 10:18 PM EST) athologist Signature PTT 114 (H) 25 - 35 sec [facility] Organization Address City/State/ZIP Code Phon e Number [address] POCT Glucose (08/07/2017 8:10 PM EST) athologist Signature POC Glucose 140 65 - 199 [place] [facility] mg/dL [facility] Comment: Supplemental ranges: <140 mg/dL before meals <180 mg/dL all other times of the day Specimen Anatomical Collection Method Collection Time Receive d Time (Source) Location / / Volume Laterality Blood specimen 08/07/2017 8:10 PM 018 8:10 (specimen) EST PM EST Yonathan Smith MD POINT OF CARE TEST ORDERABLE S Performing Organization Address City/[facility]/ZIP Code Phon e Number [address] POCT Glucose (08/07/2017 5:27 PM EST) athologist Signature POC Glucose 187 65 - 199 [place] [facility] mg/dL [facility] Comment: Supplemental ranges: <140 mg/dL before meals <180 mg/dL all other times of the day Specimen Anatomical Collection Method Collection Time Receive d Time (Source) Location / / Volume Laterality Blood specimen 08/07/2017 5:27 PM 018 5:27 (specimen) EST PM EST Yonathan Smith MD POINT OF CARE TEST ORDERABLE S Performing Organization Address City/State/ZIP Code Phon e Number [address] POCT Glucose (08/07/2017 3:29 PM EST) athologist Signature POC Glucose 86 65 - 199 [place] [facility] mg/dL [facility] Comment: Supplemental ranges: <140 mg/dL before meals <180 mg/dL all other times of the day Specimen Anatomical Collection Method Collection Time Receive d Time (Source) Location / / Volume Laterality Blood specimen 08/07/2017 3:29 PM 018 3:29 (specimen) EST PM EST Yonathan Smith MD POINT OF CARE TEST ORDERABLE S Performing Organization Address City/[facility]/[place] [address] (ABNORMAL) APTT (08/07/2017 2:50 PM EST) athologist Signature PTT 60 (H) 25 - 35 sec [facility] Smith MD HEMATOLOGY ORDERABLES Performing Organization Address City/[facility]/[place] [address] (ABNORMAL) POCT Glucose (08/07/2017 2:23 PM EST) athologist Signature POC Glucose 55 (L) 65 - 199 [facility] mg/dL [facility] Comment: Supplemental ranges: <140 mg/dL before meals <180 mg/dL all other times of the day Specimen Anatomical Collection Method Collection Time Receive d Time (Source) Location / / Volume Laterality Blood specimen 08/07/2017 2:23 PM 018 2:23 (specimen) EST PM EST Yonathan Smith MD POINT OF CARE TEST ORDERABLE S Performing Organization Address City/[facility]/[place] [address] POCT Glucose (08/07/2017 12:08 PM EST) athologist Signature POC Glucose 77 65 - 199 [facility] mg/dL [facility] Comment: Supplemental ranges: <140 mg/dL before meals <180 mg/dL all other times of the day Specimen Anatomical Collection Method Collection Time Receive d Time (Source) Location / / Volume Laterality Blood specimen 08/07/2017 12:08 8 (specimen) PM EST 12:08 PM EST Yonathan Smith MD POINT OF CARE TEST ORDERABLE S Performing Organization Address City/State/ZIP [place] [address] (ABNORMAL) Differential, Automated (08/07/2017 7:30 AM EST) [facility] gist Method Time Signature Neutrophils % 73.8 % [facility] LABORATORY Neutr Abs (ANC) 7.17 (H) 1.70 - [facility] 6.10 [facility] x10(3)/[facility] LABORATORY Lymphocytes % 12.2 % [facility] LABORATORY Lymphocytes Abs 1.2 0.9 - 3.2 [facility] x10(3)/[facility] LABORATORY Monocytes % 9.0 % [facility] LABORATORY Monocyte Abs 0.9 0.3 - 0.9 [facility] x10(3)/[facility] LABORATORY Eosinophils % 3.9 % [facility] LABORATORY Eosinophils Abs 0.4 0.0 - 0.4 [facility] x10(3)/[facility] LABORATORY Basophils % 0.6 % [facility] LABORATORY Basophils Abs 0.1 0.0 - 0.1 [facility] x10(3)/[facility] LABORATORY Immature Gran % 0.50 % [facility] [...] Organization Address City/State/ZIP [place] [address] (ABNORMAL) Hemogram (08/07/2017 7:30 AM EST) Analysis Performed At Patho logist Time Signature WBC 9.7 (H) 4.0 - 9.5 [facility] x[facility](3[facility] LABORATORY RBC 3.54 (L) 4.58 - [facility] 5.54 [facility] x10(6)/[facility] LABORATORY Hemoglobin 9.9 (L) 13.7 - [facility] 16.5 gm/dL [facility] Hematocrit 32.3 (L) 40.5 - [facility] 48.5 % [facility]ATORY MCV 91.2 82.9 - [facility] 93.1 [facility] LABORATORY MCH 28.0 27.5 - [place] [facility] 32.1 pg [facility]ORATORY MCHC 30.7 (L) 32.0 - [facility] 35.7 gm/dL [facility]ORATORY Platelets 312 145 - 357 [facility] x10(3)/[facility] LABORATORY RDWSD 53.2 (H) 36.0 - [facility] 45.0 [facility] LABORATORY RDWCV 16.0 (H) 11.4 - [facility] SU 13.8 % [facility] LABORATORY MPV 8.9 7.6 - 12.9 [facility] nRBC % Auto 0.0 % [facility] LABORATORY nRBC Abs Auto 0.000 0.000 - [facility] SU 0.000 [facility] x10(3)/[facility] LABORATORY Specimen Anatomical Collection Method Collection Time Receive d Time (Source) Location / / Volume Laterality Blood specimen 08/07/2017 7:30 AM 018 7:45 (specimen) EST AM EST Resulting Agency Comment Spec In Lab Yonathan Smith MD HEMATOLOGY ORDERABLES Performing Organization Address City/State/ZIP [place] [address] (ABNORMAL) Basic Metabolic Panel (non-fasting) (08/07/2017 7:30 AM EST) P athologist Signature Glucose Lvl 80 65 - 199 [facility] mg/dL [facility] Comment: Diabetes: >=200 mg/dL plus symp toms BUN 31 (H) 10 - 20 mg/dL [facility] LABORATORY Creatinine 1.22 0.80 - [...] estions. Chloride 99 98 - 107 mmol/L [facility] LABORATORY CO2 29 22 - 31 mmol/L [facility] LABORATORY Anion Gap 12 5 - 15 mmol/L [facility] LABORATORY Calcium 8.5 8.5 - 10.5 mg/dL [facility] LABORATORY Estimated GFR 59 (L) >=60 [facility] LABORATORY Comment: The reported eGFR should be multiplied b y 1.2 for patients. The MDRD is not an appropriate measure o f renal function for patients with body mass extremes or in patients with acute kidney failure. http://[employer]/DHnkdep http://[employer]/DHMCnkf Specimen Anatomical Collection Method Collection Time Receive d Time (Source) Location / / Volume Laterality Blood specimen 08/07/2017 7:30 AM 018 7:45 (specimen) EST AM EST Resulting Agency Comment Spec In Lab Yonathan Smith MD CHEMISTRY ORDERABLES Performing Organization Address City/State/ZIP Code Phon e Number [address] POCT Glucose (08/07/2017 7:27 AM EST) athologist Signature POC Glucose 81 65 - 199 [facility] mg/dL [facility] Comment: Supplemental ranges: <140 mg/dL before meals <180 mg/dL all other times of the day Specimen Anatomical Collection Method Collection Time Receive d Time (Source) Location / / Volume Laterality Blood specimen 08/07/2017 7:27 AM 018 7:27 (specimen) EST AM EST Yonathan Smith MD POINT OF CARE TEST ORDERABLE S Performing Organization Address City/[facility]/[place] [address] APTT (08/07/2017 7:04 AM EST) athologist Signature PTT 34 25 - 35 sec [facility] [...] Smith MD HEMATOLOGY ORDERABLES Performing Organization Address City/[facility]/[place] [address] (ABNORMAL) Prothrombin Time (08/07/2017 7:04 AM EST) athologist Signature PT 17.3 (H) 11.8 - 14.0 [facility] LABORATORY INR 1.4 (H) 0.9 - 1.1 [facility] [...] Smith MD HEMATOLOGY ORDERABLES Performing Organization Address City/[facility]/ZIP Code Phon e Number [address] POCT Glucose (08/07/2017 4:03 AM EST) athologist Signature POC Glucose 93 65 - 199 [facility] mg/dL [facility] Comment: Supplemental ranges: <140 mg/dL before meals <180 mg/dL all other times of the day Specimen Anatomical Collection Method Collection Time Receive d Time (Source) Location / / Volume Laterality Blood specimen 08/07/2017 4:03 AM 018 4:03 (specimen) EST AM EST Yonathan Smith MD POINT OF CARE TEST ORDERABLE S Performing Organization Address City/[facility]/ZIP Code Phon e Number [address] POCT Glucose (08/07/2017 12:04 AM EST) athologist Signature POC Glucose 107 65 - 199 [facility] mg/dL [facility] Comment: Supplemental ranges: <140 mg/dL before meals <180 mg/dL all other times of the day Specimen Anatomical Collection Method Collection Time Receive d Time (Source) Location / / Volume Laterality Blood specimen 08/07/2017 12:04 8 (specimen) AM EST 12:04 AM EST Yonathan Smith MD POINT OF CARE TEST ORDERABLE S Performing Organization Address City/[facility]/ZIP Code Phon e Number [address] POCT Glucose (08/06/2017 7:56 PM EST) athologist Signature POC Glucose 178 65 - 199 [facility] mg/dL [facility] Comment: Supplemental ranges: <140 mg/dL before meals <180 mg/dL all other times of the day Specimen Anatomical Collection Method Collection Time Receive d Time (Source) Location / / Volume Laterality Blood specimen 08/06/2017 7:56 PM 018 7:56 (specimen) EST PM EST Yonathan Smith MD POINT OF CARE TEST ORDERABLE S Performing Organization Address City/State/ZIP [place] [address] [id number] (08/06/2017 2:32 PM EST) Component Value Ref Test Analysis Performed At [facility] Range Method Time Signature VB Text Department: Vascular Surgery Lab VASCUBASE Report Patient: [id number] (GREGORY HOANG) CPT: 9645397 ICD10: I99.8 Referring Physician: YONATHAN SMITH ?? [...] Chiquis cho RN)[id number] (Stopped - Provider: Chiquis Mcgrtah RN) 2 g, Intravenous, EVERY 24 HOURS, [...] Kim Borges, VAMSI)[id number] (Given - Provider: Alyson iMddleton RN) 0427 (Given - Provider: Mira Truong, [...]
Routine documented in this encounter Care Teams Control Area Operator Relationship Specialty Start Date End Date Lovely Vicente MD PCP - General 04/16/[address] [place] [address] documented as of this encounter
--- OUTSIDE RECORDS SUMMARY | 2022-02-23 08:55 | XMS_ITS | Encounter Summary ---
:1945 Author Organization [facility] [place] [address] Care Team Providers Name Role Phone Lovely Vicente MD Primary Care Provider Reason for Visit Auth/Cert Specialty Diagnoses / Procedures Referred By Contact Refer red To Contact Diagnoses Critical lower limb ischemia CELLULITIS RT FOOT Procedures EMERGENCY Referral ID Status Reason Start Date Expiration Date Visits Requ ested Visits Authorized [id number] 1 1 Encounter Details Date Type Department Care Team Description 08/11/2017 Surgery Main Operating Room Yonathan Smith (M SURG) DRESSING CHANGE Barbara Ocampo MD (FOR OTHER THAN IVAN) [facility] UNDER ANES. 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 Patient [...] Dorsalis Pedis (Ankle) Artery ?132 ? 0.94 ??Dickinson-Biphasic ? Posterior Tibial (Ankle) Artery ??154 ? 1.10 ??Dickinson-Biphasic ? Fourth Toe ? 67 ?0.48 ?? [...] foot. Discharge Conditions/Prognosis: Good Discharge to: [facility] Rehab Discharge Medications: Your Medications [...] For any problems or questions please call [phone] ZELDA Smith, bi technical lead Nurse Clinician For issues on weeknights after 5pm and weekends please call [phone] and ask for the Vascular Fellow superintendent compressor stations. General Instructions None Future Appointments and Orders Future Appointments Provider Department Dept Phone 08/26/2017 4:00 PM Aurelia Rivera PA [facility] [place] [phone] 09/07/2017 3:00 PM LAB, THREE L Lab 3L [facility] [phone] 09/07/2017 4:00 PM Luz Prescott MD [facility]ocrin[facility] [place] [phone] 09/09/2017 8:00 AM Barbra Soares APRN [facility] [place] [phone] Please bring a list of your current [...] For any problems or questions please call [phone] ZELDA Smith, bi technical lead Nurse Clinician For issues on weeknights after 5pm and weekends please call [phone] and ask for the Vascular Fellow superintendent compressor stations. documented in this encounter Medications at Time [...] Note Patient Destination: [facility] ([facility]) [address] [place] [id number] Transportation: with (at bedside) Time of Discharge: by 12 noon Level of Care: swing Patient Aware: yes Family Notified: yes Md to call report to: Yissel Quintero PIE MAKER already called RN to call report to: [phone] Shirin Wolf Office of Care Management Pager [phone] Shirin Wagner RN - 08/16/2017 10:50 AM EST [facility] has offered pt swing bed. Pt and accept bed. will transport via car. PIE MAKER Yissel Quintero aware; d/c paperwork will be completed by 12 noon. [facility] requests pt arrival by 1400 today; PIE MAKER, RN, and family aware. PIE MAKER called [facility] and was told that they prefer pt to arrive with wound vac dressing applied but clamped. PIE MAKER applied new wound vac dressing. RN has [facility] number to call report. PASSR completed; PIE MAKER paged to request provider signature in highlighted space. Indigo from [facility] notified via email that home wound vac now cancelled; [facility] has picked up from room and order cancelled. Packet started and provided to unit tender. Medicare important message explained to patient, patient signed. Copy provided to patient and signature page to OCM for inclusion in pt EMR. Radha Georges - 08/16/2017 10:34 AM EST Office of Care Management/Floor Finisher Helper Patient Name: Gregory Hoang : 1945 Patient has been offered a swing bed at . The patient will be transported by private transportation. No MD to MD report necessary Please call Nursing Report to [phone], ask for plywood layup line core feeder. Info to accompany patient: Narcotic Prescriptions Copies of Medication Administration Records and IV sheets for past 10 days. Plan: Floor Finisher Helper will be available to the patient and High Density Talc Coater Operator-RN and/or Warp Coiler for further assistance. Patient will be discharged to: [address] [place] [address] [id number] Radha Powers, Floor Finisher Helper Mira Black, VAMSI - 08/15/2017 10:05 PM EST [address] Flores to ask if he wanted to hold metoprolol dose. BP 95/58. OK to hold this dose Courtney Brito - 08/15/2017 3:26 PM EST Office of Care Management(OCM)/Floor Finisher Helper(RS)/ D/C Planning re : Patient is medically ready for d/c today. RS has been in contact with [facility] to see if they could offer a bed. [facility] is still reviewing the case and need their MD to review chart prior to accepting or declining. OCM team needs to check in with [place] tomorrow to check on status. 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 . Contacted by direct care RN, who said that patient and would like information about patient's referral to: [facility] PHONE: [phone] FAX: [phone] CM spoke with RS who said that [...] would be accepted to acute rehab at [facility] as Dr. Smith had recommended [...] rehab. Await recommendations from PT. Covering pager #[phone]. 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 Home Service Consultant Kaitlin Saha, RN Pager #[phone] Payam Rosales - 08/13/2017 2:37 PM EST [employer] Encounter Note Patient Name: Gregory Hoang : [id number] MR#: [id number] Admit Date: 08/06/2017 1:41 PM Hospital Day 7 days Narrative: Visited to introduce and assess acceptance of [employer] [employer] services. Pt was awake, alert, oriented and in chair and family was there. Assessment:Patient coping positively with stresses of illness/hospitalization at this time. Pt says that he is hoping to get better and his family was there. Pt says that he has family care and supportand taking one day at time. Intervention and Outcome: Provided emotional support and encouraging presence. 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 A letter describing our affiliations was reviewed with them and theywere educated about their right to choose where referrals are placed. Patient requests referral to [facility] [employer]. PHONE: [phone] FAX: [phone]. And Home NPWT (Negative Pressure Wound Therapy) aka wound vac device made available to pt. Serial # confirmed. Reviewed [facility] Proof of Delivery/Assignment of Benefits Statement(POD/AOB) Form w patient or authorized agent signing on behalf of patient. Copy of POD/AOB provided to pt and other copy faxed to [employer] @ fax# [phone] Expected date of discharge: 08/12/2017. 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 Address: [address] [place] [address] [place] [address] (home) Mobile: Telephone Information: Referring Provider: No [...] SETUP performed by Manny Mcknight MD at [facility] OR ??? PRO CABG, ARTERIAL, SINGLE N/A 07/07/2017 @CABG, USING ARTERIAL GRAFT;SINGLE ARTERIAL GRAFT (WRVU 33.75) performed by Yuan Retana MD at [facility] OR ??? PRO CABG, ARTERY-VEIN, TWO N/A 07/07/2017 @CABG, TWO VENOUS GRAFTS & ARTERIAL GRAFT (WRVU 7.93) performed by Yuan Retana MD at [facility] OR ??? PRO COLONOSCOPY, REMV LESN, SNARE 01/16/2014 COLONOSCOPY, POLYPECTOMY, REMOVAL LESION BY SNARE performed by Nohemi Jaimes MD at [facility] ENDOSCOPY ??? PRO ENDOSCOPY W/VIDEO-ASST VEIN HARVEST, CABG Right 07/07/2017 ENDOSCOPIC HARVEST VEIN(S) FOR CABG (WRVU 0.31) performed by Yuan Retana MD at [facility] OR ??? PRO THYROIDECTOMY 03/28/2013 THYROIDECTOMY, TOTAL OR COMPLETE performed by Manny Mcknight MD at [facility] OR Date/Procedure Med's given/comments 08/10/17 RLE angio with multiple REHAB AIDE to R posterior tibial artery Fentanyl 200 [...] 6 hours as needed for Pain. 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 Heparin gtt continues to run. Pt a/ox4. [...] of : 1945 AGE 72 y.o. Address: [address] [place] [address] [place] [address] (home) Mobile: Telephone Information: Referring Provider: No [...] SETUP performed by Manny Mcknight MD at [facility] OR ??? PRO CABG, ARTERIAL, SINGLE N/A 07/07/2017 @CABG, USING ARTERIAL GRAFT;SINGLE ARTERIAL GRAFT (WRVU 33.75) performed by Yuan Retana MD at [facility] OR ??? PRO CABG, ARTERY-VEIN, TWO N/A 07/07/2017 @CABG, TWO VENOUS GRAFTS & ARTERIAL GRAFT (WRVU 7.93) performed by Yuan Retana MD at [facility] OR ??? PRO COLONOSCOPY, REMV LESN, SNARE 01/16/2014 COLONOSCOPY, POLYPECTOMY, REMOVAL LESION BY SNARE performed by Nohemi Jaimes MD at [facility] ENDOSCOPY ??? PRO ENDOSCOPY W/VIDEO-ASST VEIN HARVEST, CABG Right 07/07/2017 ENDOSCOPIC HARVEST VEIN(S) FOR CABG (WRVU 0.31) performed by Yuan Retana MD at [facility] OR ??? 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 Unsuccessful draw attempt, another label drier will come [facility] to collect blood for PTT test. Chiquis Trivedi RN - 08/08/2017 4:55 PM EST Patient blood sugar 58 at 1601. Patient given juice, hira crackers, and peanut butter. Sugar rechecked at 1642 for 78. Patient given more hira crackers and peanut butter. concerned about bloodsugars today, discussed plan of care with patient and . Continue q4h glucose monitoring. 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 Vascular resident superintendent compressor stations and will forward result to the team prior to rounds. 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 Patient [...] SETUP performed by Manny Mcknight MD at [facility] OR ??? PRO CABG, ARTERIAL, SINGLE N/A 07/07/2017 @CABG, USING ARTERIAL GRAFT;SINGLE ARTERIAL GRAFT (WRVU 33.75) performed by Yuan Retana MD at [facility] OR ??? PRO CABG, ARTERY-VEIN, TWO N/A 07/07/2017 @CABG, TWO VENOUS GRAFTS & ARTERIAL GRAFT (WRVU 7.93) performed by Yuan Retana MD at [facility] OR ??? PRO COLONOSCOPY, REMV LESN, SNARE 01/16/2014 COLONOSCOPY, POLYPECTOMY, REMOVAL LESION BY SNARE performed by Nohemi Jaimes MD at [facility] ENDOSCOPY ??? PRO ENDOSCOPY W/VIDEO-ASST VEIN HARVEST, CABG Right 07/07/2017 ENDOSCOPIC HARVEST VEIN(S) FOR CABG (WRVU 0.31) performed by Yuan Retana MD at [facility] OR ??? PRO THYROIDECTOMY 03/28/2013 THYROIDECTOMY, TOTAL OR COMPLETE performed by Manny Mcknight MD at [facility] OR Functional Status/Social Hx: Quit [...] left blue toes with CTA showing R BACKEND DEVELOPER pseudoaneurysm (now thrombosed) and occluded ATs bilaterally. [...] 2.5x80 5. Completion RLE angiogram 6. L BACKEND DEVELOPER angiogram 7. 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 - L BACKEND DEVELOPER angriogram demonstrated: High femoral bifurcation over the proximal half of the femoral head. L BACKEND DEVELOPER access in the distal L BACKEND DEVELOPER. - Closure device: Mynx Technical Procedure: The [...] for a 45cm 5F Destination. V18 and [place] and QuickCross catheters were used to [...] 5F. A stationed picture of the L BACKEND DEVELOPER was performed as the patient was noted to have a very high bifurcation. Access appeared in the distal R BACKEND DEVELOPER. Closure and sheath removal was performed with [...] PM EST 1440 report called to 5 filley nurse Tessa AGUSTIN documented in this encounter Miscellaneous Notes Plan of Care - Dory Truong RN - 08/16/2017 10:51 AM EST Problem: Patient Care Overview Goal: Plan of Care Review Outcome: Outcome (s) achieved Date Met: 08/16/17 08/14/17 1939 08/16/17 8361 Coping/Psychosocial Plan Of Care Reviewed With -- patient Plan of Care Review Progress improving -- Discussed discharge instructions with pt and pt's spouse. Discharge to [facility]. Goal: Individualization & Mutuality Outcome: [...] sit/sit to supine -- Bed Mobility Goal, [place] Level independent -- Bed Mobility Goal, Date [...] days -- Transfer Training Goal, Activity Type uzu-ym-cdxwo/rdcgf-wd-mjh -- Transfer Train Goal, [place] Level conditional independence -- Transfer Train Goal, [...] call cabello within reach, Hourly rounding by RN/TEST BAKER. Bed alarm / Chair alarm. Patient-specific fall [...] Smith MD - 08/15/2017 6:28 PM EST [facility] Operative Note Patient Name: Gregory Hoang : [id number] MR#: [id number] Case Date: 08/09/2017 Surgeon: Surgeon(s) and Role: [...] 2.5x80 5. Completion RLE angiogram 6. L BACKEND DEVELOPER angiogram 7. Mynx closure Precautions/Restrictions: fall, sternal [...] other (see comments) (or swing bed) Pager: [phone] BASSAM ELIAS, PT 08/14/2017 Inpatient Physical Therapy [...] to Achieve by discharge Gait Training Goal, [place] Level conditional independence;set up required Gait Training [...] facilities over the weekend except for [facility]. CM spoke with [facility] KANWAL Sandhu RN who said that they do not anticipate any beds over the weekend. Reviewed with patient/ that they need to be aware that patient will need to take the first bed offered at the facilities that they make referrals to. Their choices are: 1- [facility] PHONE: [phone] FAX: [phone] 2- [facility] ([facility]) [address] [place] [address] 3- [facility])([facility]) [address] [place] [address] I have discussed Medicare/Private Insurance [...] with additional findings of pseudoaneurysm on R BACKEND DEVELOPER and bilateral anterior tibial artery occlusions. Was [...] an outpatient once discharged. Have patient call [phone] to set up an appointment. Follow-up: Dermatology will sign-off for now. Please do not hesitate to contact us if you have any questions orconcerns. Impression and Recommendations discussed with primary team on 08/13/2017. Karo Hednerson MD Resident in Dermatology Section of Dermatology, Department of Surgery [facility] Pager [phone] Patient seen and evaluated with staff Director Of Supply Chain: Halima Cordero MD Section of Dermatology [facility] Level of Resident Supervision: [...] 2.5x80 5. Completion RLE angiogram 6. L BACKEND DEVELOPER angiogram 7. Mynx closure Active Non-Hospital Problems [...] home with home health ([facility] PT[facility]OT) Pager: [phone] YASIR TELLO OT 08/12/2017 Occupational Therapy Rehabilitation [...] 2.5x80 5. Completion RLE angiogram 6. L BACKEND DEVELOPER angiogram 7. Mynx closure Past Medical History: [...] with 24/7 assistance and maximal services) Pager: [phone] NICHOLAS MORA, JESSIE 08/12/2017 Physical Therapy Rehabilitation [...] sit/sit to supine -- Bed Mobility Goal, [place] Level independent -- Bed Mobility Goal, Outcome Achieved -- goal ongoing Goal: Gait Training Goal Stand Alone Therapy Goal Outcome: Ongoing (Interventions Implemented as Appropriate) 08/11/17 1310 08/12/17 1510 Gait Training Goal Gait Training Goal, Date Established 08/11/17 -- Gait Training Goal, Time to Achieve 5 - 7 days -- Gait Training Goal, [place] Level conditional independence -- Gait Training Goal, [...] days -- Transfer Training Goal, Activity Type xol-bd-zvpct/ndjak-ni-hjf -- Transfer Train Goal, [place] Level conditional independence -- Transfer Training Goal, [...] Smith MD - 08/11/2017 2:52 PM EST [facility] Operative Note Patient Name: Gregory Hoang : [id number] MR#: [id number] Case Date: 08/11/2017 Surgeon: Surgeon(s) and Role: [...] 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 Completion RLE angiogram 6. L BACKEND DEVELOPER angiogram 7. Mynx closure He is very [...] Anticipated Discharge Disposition: inpatient rehabilitation facility Pager: [phone] LAWRENCE GONZALEZ, PT 08/11/2017 Physical Therapy Rehabilitation [...] to sit/sit to supine Bed Mobility Goal, [place] Level independent Goal: Gait Training Goal Stand Alone Therapy Goal Outcome: Ongoing (Interventions Implemented as Appropriate) 08/11/17 1310 Gait Training Goal Gait Training Goal, Date Established 08/11/17 Gait Training Goal, Time to Achieve 5 - 7 days Gait Training Goal, [place] Level conditional independence Gait Training Goal, Assist [...] 7 days Transfer Training Goal, Activity Type rko-cx-euuwi/mnrtl-gl-hjm Transfer Train Goal, [place] Level conditional independence Plan of Care - [...] call cabello within reach, Hourly rounding by RN/TEST BAKER. Bed alarm / Chair alarm. ? Patient-specific [...] 04/05/2013 Hospitalizations Within the Past 30 Days: [facility] 07/20/2017 Anticipated Length Of Stay (If known): Expected Length of Hospitalization: 5-7 days2-3 days Current Decision-Making Capacity: Alert and oriented x 4 Advance Care Planning: on file Kisha Hoang [facility] [phone] Current Coping/Education/Information Needs: pt and spouse state [...] Health/Prescription Coverage: Primary Insurance: MEDICARE Secondary Insurance: [employer] [place] Prescription Coverage: See above Preferred Pharmacy: [facility] Other: N/A Primary Care Provider: Lovely Vicente MD [phone] Patient/Caregiver Goals of Treatment: Patient plans to return home when medically ready Potential Needs for Transition of Care: Rehab/SNF: N/A Home Health: [facility]. DME: pt has a cane and walker [...] of care planning. Kaitlin Saha RN Pager: [phone] Plan of Care - Melba Jaramillo RN [...] Overview Goal: Plan of Care Review 08/08/17 8684 Coping/Psychosocial Plan Of Care Reviewed With patient [...] Surveillance: Bed locked in low position, call cbaello within reach, purposeful hourly rounding, clutter free [...] call cabello within reach, Hourly rounding by RN/TEST BAKER. Bed alarm / Chair alarm. Patient-specific fall [...] at bedside and MD TEAM Carrying pager [phone] contacted (via Radio page) and notified of [...] Vitaliy Nobles MD [facility] CARDIOLOGY [place], [place] 0375 (Wo rk) documented as of [...] TYPE AND SCREEN Routine 08/09/2017 1:10 AM ([facility]/CGP/SHANDA) EST BASIC METABOLIC PANEL Routine 08/09/2017 1:10 [...] POC Glucose 160 65 - 199 [facility] mg/dL [facility] [...] Organization Address City/State/[place] [address] (ABNORMAL) Differential, Automated (08/16/2017 5:08 AM EST) Patholo gist Method Time Signature Neutrophils % 73.9 % [facility] LABORATORY Neutr Abs (ANC) 5.37 1.70 - [facility] 6.10 [facility] x10(3)/[facility] LABORATORY Lymphocytes % 10.1 % [facility] LABORATORY Lymphocytes Abs 0.7 (L) 0.9 - 3.2 [facility] x10(3)/[facility] LABORATORY Monocytes % 10.1 % [facility] LABORATORY Monocyte Abs 0.7 0.3 - 0.9 [facility] x10(3)/[facility] LABORATORY Eosinophils % 5.1 % [facility] LABORATORY Eosinophils Abs 0.4 0.0 - 0.4 [facility] x10(3)/[facility] LABORATORY Basophils % 0.4 % [facility] LABORATORY Basophils Abs 0.0 0.0 - 0.1 [facility] x10(3)/[facility] LABORATORY Immature Gran % 0.40 [...] 0.04 x10(3)/[facility] LABORATORY Specimen Anatomical Collection Method Collection Time Receive d Time (Source) Location / / Volume Laterality Blood specimen 08/16/2017 5:08 AM 018 5:20 (specimen) EST AM EST Resulting Agency Comment Spec In Lab Yonathan Smith MD HEMATOLOGY ORDERABLES Performing Organization Address City/State/[place] [address] (ABNORMAL) Hemogram (08/16/2017 5:08 AM EST) Analysis Performed At Patho logist Time Signature WBC 7.3 4.0 - 9.5 [facility] x10(3)/[facility] LABORATORY RBC 3.36 (L) 4.58 - [facility] 5.54 [facility] x10(6)/[facility] LABORATORY Hemoglobin 9.7 (L) 13.7 - [facility] 16.5 gm/dL [facility] LABORATORY Hematocrit 30.3 (L) 40.5 - [facility] 48.5 % [facility] LABORATORY MCV 90.2 82.9 - BARBARA DAVIS 93.1 [facility] LABORATORY MCH 28.9 27.5 - BARBARA RYAN 32.1 pg [facility] LABORATORY MCHC 32.0 32.0 - [facility] 35.[facility] gm/dL [facility] LABORATORY Platelets 282 145 - 357 [facility] x10(3)/[facility] LABORATORY RDWSD 53.9 (H) 36.0 - BARBARA RYAN 45.0 [facility] LABORATORY RDWCV 16.5 (H) 11.4 - [facility] RYAN 13.8 % [facility] LABORATORY MPV 9.0 7.6 - 12.9 [facility] LABORATORY nRBC % Auto 0.0 % [facility] LABORATORY nRBC Abs Auto 0.000 0.000 - [facility] x10(3)/[facility] LABORATORY Specimen Anatomical Collection Method Collection Time Receive d Time (Source) Location / / Volume Laterality Blood specimen 08/16/2017 5:08 AM 018 5:20 (specimen) EST AM EST Resulting Agency Comment Spec In Lab Yonathan Smith MD HEMATOLOGY ORDERABLES Performing Organization Address City/State/[place] [address] (ABNORMAL) Basic Metabolic Panel (non-fasting) (08/16/2017 5:08 AM EST) P athologist Signature Glucose Lvl 141 65 - 199 [facility] mg/dL [facility] LABORATORY Comment: Diabetes: >=200 mg/dL plus symp toms BUN 29 (H) 10 - 20 mg/dL [facility] LABORATORY Creatinine 1.25 0.80 - 1.50 mg/dL [facility] [...] estions. Chloride 99 98 - 107 mmol/L [facility] [...] or in patients with acute kidney failure. [email or web address] Specimen Anatomical Collection Method Collection Time Receive d Time (Source) Location / / Volume Laterality Blood specimen 08/16/2017 5:08 AM 018 5:20 (specimen) EST AM EST Resulting Agency Comment Spec In Lab Yonathan Smith MD CHEMISTRY ORDERABLES Performing Organization Address City/[facility] [place] [address] (ABNORMAL) Prothrombin Time (08/16/2017 5:08 AM EST) athologist Signature PT 25.2 (H) 11.8 - 14.0 [facility] LABORATORY INR 2.3 (H) 0.9 - 1.1 [facility] [...] Smith MD HEMATOLOGY ORDERABLES Performing Organization Address City/[facility]/ZIP [place] [address] POCT Glucose (08/16/2017 4:09 AM EST) athologist Signature POC Glucose 147 65 - 199 [facility] mg/dL [facility] [...] Address City/State/ZIP Code Phon e Number [address] POCT Glucose (08/15/2017 11:56 PM EST) athologist Signature POC Glucose 176 65 - 199 [place] mg/dL [facility] [...] Organization Address City/State/ZIP Code [place] [address] POCT Glucose (08/15/2017 8:05 PM EST) athologist Signature POC Glucose 136 65 - 199 [facility] mg/dL [facility] [...] Organization Address City/State/ZIP [place] [address] (ABNORMAL) POCT Glucose (08/15/2017 4:50 PM EST) athologist Signature POC Glucose 232 (H) 65 - 199 [facility] [...] Address City/State/ZIP Code Phon e Number [address] POCT Glucose (08/15/2017 12:04 PM EST) athologist Signature POC Glucose 135 65 - 199 [facility]/dL [facility] [...] Organization Address City/State/ZIP [place] [address] POCT Glucose (08/15/2017 7:36 AM EST) athologist Signature POC Glucose 124 65 - 199 [facility]/dL [facility] [...] Organization Address City/State/ZIP [place] [address] (ABNORMAL) Differential, Automated (08/15/2017 6:22 AM EST) Patholo gist Method Time Signature Neutrophils % 76.1 % [facility] LABORATORY Neutr Abs (ANC) 6.62 (H) 1.70 - [facility] 6.10 [facility] x10(3)/[facility] L LABORATORY Lymphocytes % 9.3 % [facility] LABORATORY Lymphocytes Abs 0.8 (L) 0.9 - 3.2 [facility] x10(3)/[facility] LABORATORY Monocytes % 9.4 % [facility] LABORATORY Monocyte Abs 0.8 0.3 - 0.9 [facility] x10(3)/[facility] LABORATORY Eosinophils % 4.0 % [facility] LABORATORY Eosinophils Abs 0.4 0.0 - 0.4 [facility] x10(3)/[facility] LABORATORY Basophils % 0.6 % [facility] LABORATORY Basophils Abs 0.0 0.0 - 0.1 [facility] x10(3)/[facility] LABORATORY Immature Gran % 0.60 % [facility] [...] Abs 0.05 (H) 0.00 - 0.04 x10(3)/[facility] LABORATORY Specimen Anatomical Collection Method Collection Time Receive d Time (Source) Location / / Volume Laterality Blood specimen 08/15/2017 6:22 AM 018 6:33 (specimen) EST AM EST Resulting Agency Comment Spec In Lab Yonathan Smith MD HEMATOLOGY ORDERABLES Performing Organization Address City/State/[place] [address] (ABNORMAL) Hemogram (08/15/2017 6:22 AM EST) Analysis Performed At Patho logist Time Signature WBC 8.7 4.0 - 9.5 [place] 653330(3)/[facility] LABORATORY RBC 3.21 (L) 4.58 - [place] [facility] 5.54 [facility] x10(6)/[facility] LABORATORY Hemoglobin 9.1 (L) 13.7 - [facility] 16.5 gm/dL [facility] LABORATORY Hematocrit 29.0 (L) 40.5 - [place] [place] 48.5 % [facility] LABORATORY MCV 90.3 82.9 - [facility] 93.1 [facility] LABORATORY MCH 28.3 27.5 - [place] 32.1 pg [facility] LABORATORY MCHC 31.4 (L) 32.0 - [facility] 35.7 gm/dL [facility] LABORATORY Platelets 254 145 - 357 [facility] x10(3)/[facility] LABORATORY RDWSD 53.9 (H) 36.0 - [facility] 45.0 [facility] LABORATORY RDWCV 16.3 (H) 11.4 - [facility] 13.8 % [facility] LABORATORY MPV 8.8 7.6 - 12.9 [facility] LABORATORY nRBC % Auto 0.0 % [facility] LABORATORY nRBC Abs Auto 0.000 0.000 - [facility] 0.000 [facility] x10(3)/[facility] LABORATORY Specimen Anatomical Collection Method Collection Time Receive d Time (Source) Location / / Volume Laterality Blood specimen 08/15/2017 6:22 AM 018 6:33 (specimen) EST AM EST Resulting Agency Comment Spec In Lab Yonathan Smith MD HEMATOLOGY ORDERABLES Performing Organization Address City/State/[place] [address] (ABNORMAL) Basic Metabolic Panel (non-fasting) (08/15/2017 6:22 AM EST) athologist Signature Glucose Lvl 118 65 - 199 [facility] mg/dL [facility] LABORATORY Comment: Diabetes: >=200 mg/dL plus symp toms BUN 27 (H) 10 - 20 mg/dL [facility] LABORATORY Creatinine 1.12 0.80 - 1.50 mg/dL [facility] LABORATORY Sodium 138 135 [...] 107 mmol/L [facility] LABORATORY CO2 29 22 - 31 mmol/L [facility] LABORATORY Anion Gap 11 5 - 15 mmol/L [facility] LABORATORY Calcium 8.8 8.5 - 10.5 mg/dL [facility] LABORATORY Estimated GFR >60 >=60 [facility] LABORATORY Comment: The reported eGFR should be multiplied b y 1.2 for patients. The MDRD is not an appropriate measure o f renal function for patients with body mass extremes or in patients with acute kidney failure. [email or web address] Specimen Anatomical Collection Method Collection Time Receive d Time (Source) Location / / Volume Laterality Blood specimen 08/15/2017 6:22 AM 018 6:33 (specimen) EST AM EST Resulting Agency Comment Spec In Lab Yonathan Smith MD CHEMISTRY ORDERABLES Performing Organization Address City/State/[place] [address] (ABNORMAL) Prothrombin Time (08/15/2017 6:22 AM EST) P athologist Signature PT 21.9 (H) 11.8 - 14.0 [facility] LABORATORY INR 1.9 (H) 0.9 - 1.1 [facility] [...] Address City/State/ZIP Code Phon e Number [address] POCT Glucose (08/15/2017 4:33 AM EST) athologist Signature POC Glucose 164 65 - 199 [place] mg/dL [facility] [...] Address City/State/ZIP Code Phon e Number [address] POCT Glucose (08/15/2017 12:12 AM EST) athologist Signature POC Glucose 89 65 - 199 [place] [facility] mg/dL [facility] [...] Address City/State/ZIP Code Phon e Number [address] (ABNORMAL) POCT Glucose (08/14/2017 8:07 PM EST) athologist Signature POC Glucose 204 (H) 65 - 199 [place] [facility] mg/dL [facility] [...] Address City/State/ZIP Code Phon e Number [address] POCT Glucose (08/14/2017 5:11 PM EST) athologist Signature POC Glucose 174 65 - 199 [facility] [...] Address City/State/ZIP Code Phon e Number [address] POCT Glucose (08/14/2017 12:10 PM EST) athologist Signature POC Glucose 141 65 - 199 [facility] mg/dL [facility] [...] Address City/State/ZIP Code Phon e Number [address] POCT Glucose (08/14/2017 8:07 AM EST) athologist Signature POC Glucose 158 65 - 199 [facility] mg/dL [facility] [...] Organization Address City/State/ZIP Code Phon e Number [facility] [place] [address] (ABNORMAL) Differential, Automated (08/14/2017 4:52 AM EST) [facility] Method Time Signature Neutrophils % 78.6 % [facility] LABORATORY Neutr Abs (ANC) 7.70 (H) 1.70 - [facility] 6.10 [facility] x10(3)/[facility] LABORATORY Lymphocytes % 7.8 % [facility] LABORATORY Lymphocytes Abs 0.8 (L) 0.9 - 3.2 [facility] x10(3)/[facility] LABORATORY Monocytes % 8.8 % [facility] LABORATORY Monocyte Abs 0.9 0.3 - 0.9 [facility] x10(3)/[facility] LABORATORY Eosinophils % 4.0 % [facility] LABORATORY Eosinophils Abs 0.4 0.0 - 0.4 [facility] x10(3)/[facility] LABORATORY Basophils % 0.5 % [facility] LABORATORY Basophils Abs 0.0 0.0 - 0.1 [facility] x10(3)[facility] LABORATORY Immature Gran % 0.30 % [facility] [...] 0.03 0.00 - 0.04 x10(3)/[facility] LABORATORY Specimen Anatomical Collection Method Collection Time Receive d Time (Source) Location / / Volume Laterality Blood specimen 08/14/2017 4:52 AM 018 5:08 (specimen) EST AM EST Resulting Agency Comment Spec In Lab Yonathan Smith MD HEMATOLOGY ORDERABLES Performing Organization Address City/State/ZIP [place] [address] (ABNORMAL) Hemogram (08/14/2017 4:52 AM EST) Analysis Performed At Patho logist Time Signature WBC 9.8 (H) 4.0 - 9.5 [facility] x[facility](3)/[facility] LABORATORY RBC 3.32 (L) 4.58 - [place] 5.54 [facility] x10(6)/[facility] LABORATORY Hemoglobin 9.5 (L) 13.7 - [facility] 16.5 gm/dL [facility] LABORATORY Hematocrit 30.3 (L) 40.5 - [facility] 48.5 % [facility] LABORATORY MCV 91.3 82.9 - [facility] 93.1 [facility] LABORATORY MCH 28.6 27.5 - [place] 32.1 pg [facility] LABORATORY MCHC 31.4 (L) 32.0 - [place] 35.7 gm/dL [facility] LABORATORY Platelets 263 145 - 357 [facility] x10(3)/[facility] LABORATORY RDWSD 54.8 (H) 36.0 - [facility] 45.0 [facility] LABORATORY RDWCV 16.5 (H) 11.4 - [facility] 13.8 % [facility] LABORATORY MPV 9.1 7.6 - 12.9 [facility] nRBC % Auto 0.0 % [facility] LABORATORY nRBC Abs Auto 0.000 0.000 - [place] 0.000 [facility] x10(3)/[facility] LABORATORY Specimen Anatomical Collection Method Collection Time Receive d Time (Source) Location / / Volume Laterality Blood specimen 08/14/2017 4:52 AM 018 5:08 (specimen) EST AM EST Resulting Agency Comment Spec In Lab Yonathan Smith MD HEMATOLOGY ORDERABLES Performing Organization Address City/State/[place] [address] (ABNORMAL) Prothrombin Time (08/14/2017 [...] Organization Address City/State/ZIP Code Phon e Number [place] [id number] (ABNORMAL) Basic Metabolic Panel (non-fasting) (08/14/2017 4:52 AM EST) athologist Signature Glucose Lvl 135 65 - 199 [facility] mg/dL [facility] LABORATORY Comment: Diabetes: >=200 mg/dL plus symp toms BUN 25 (H) 10 - 20 mg/dL [facility] LABORATORY Creatinine 1.36 0.80 - 1.50 mg/dL [facility] [...] or in patients with acute kidney failure. [email or web address] Specimen Anatomical Collection Method Collection Time Receive d Time (Source) Location / / Volume Laterality Blood specimen 08/14/2017 4:52 AM 018 5:08 (specimen) EST AM EST Resulting Agency Comment Spec In Lab Yonathan Smith MD CHEMISTRY ORDERABLES Performing Organization Address City/[facility]/ZIP [facility] e [address] POCT Glucose (08/14/2017 3:56 AM EST) athologist Signature POC Glucose 135 65 - 199 [facility] mg/dL [facility] LABORATORY Comment: Supplemental ranges: <140 mg/dL before meals <180 mg/dL all other times of the day Specimen Anatomical Collection Method Collection Time Receive d Time (Source) Location / / Volume Laterality Blood specimen 08/14/2017 3:56 AM 018 3:56 (specimen) EST AM EST Yonathan Smith MD POINT OF CARE TEST ORDERABLE S Performing Organization Address City/[facility]/ZIP [facility] [place] [place] [address] POCT Glucose (08/13/2017 11:13 PM EST) athologist Signature POC Glucose 118 65 - 199 [facility] mg/dL [facility] [...] Organization Address City/State/ZIP Code [place] [address] (ABNORMAL) POCT Glucose (08/13/2017 8:08 PM EST) athologist Signature POC Glucose 204 (H) 65 - 199 [facility] mg/dL [facility] LABORATORY Comment: Supplemental ranges: <140 mg/dL before meals <180 mg/dL all other times of the day Specimen Anatomical Collection Method Collection Time Receive d Time (Source) Location / / Volume Laterality Blood specimen 08/13/2017 8:08 PM 018 8:08 (specimen) EST PM EST Yonathan Smith MD POINT OF CARE TEST ORDERABLE S Performing Organization Address City/[facility]/ZIP Code [place] [address] POCT Glucose (08/13/2017 4:02 PM EST) athologist Signature POC Glucose 145 65 - 199 [facility] mg/dL [facility] [...] Organization Address City/State/ZIP Code [place] [address] POCT Glucose (08/13/2017 11:31 AM EST) athologist Signature POC Glucose 179 65 - 199 [facility] mg/dL [facility] [...] Organization Address City/State/ZIP [place] [address] (ABNORMAL) POCT Glucose (08/13/2017 10:16 AM EST) P athologist Signature POC Glucose 211 (H) 65 - 199 [facility] mg/dL [facility] [...] Organization Address City/State/ZIP [place] [address] JULIAN, legs, multiple levels (08/13/2017 7:42 AM EST) Component Value Ref Test Analysis Performed At Patholo gist Range Method Time Signature VB Text Department: Vascular Surgery Lab VASCUBASE Report Patient: [id number] (GREGORY HOANG) CPT: 61918 ICD10: I99.8 Referring Physician: YONATHAN SMITH ?? Indications: s/p R 1,2,3 toe amps with red left foot, need n ew baseline Diabetes mellitus: yes ICD10 Diagnosis Code: I99.8 Findings: Right ?Pressure (mm Hg) ?? JULIAN ??Waveform ?TBI ?? Brachial Artery ?138 ? Dorsalis Pedis (Ankle) Arter y ?132 ? 0.94 ??Dickinson- Biphasic ? Posterior Tibial (Ankle) Art anila ??154 ? 1.10 ??Dickinson-Biphasic ? Fourth Toe ? 67 ? 0.48 [...] Smith MD VASCULAR ORDERABLES Performing Organization Address City/[facility]/ZIP Code Phon e Number VASCUBASE POCT Glucose (08/13/2017 7:33 AM EST) P athologist Signature POC Glucose 156 65 - 199 [facility] mg/dL [facility] LABORATORY Comment: Supplemental ranges: <140 mg/dL before meals <180 mg/dL all other times of the day Specimen Anatomical Collection Method Collection Time Receive d Time (Source) Location / / Volume Laterality Blood specimen 08/13/2017 7:33 AM 018 7:33 (specimen) EST AM EST Yonathan Smith MD POINT OF CARE TEST ORDERABLE S Performing Organization Address City/[facility]/ZIP [facility] [place] [place] [address] (ABNORMAL) Differential, Automated (08/13/2017 5:33 AM EST) Patholo gist Method Time Signature Neutrophils % 77.8 % [facility] LABORATORY Neutr Abs (ANC) 7.83 (H) 1.70 - [facility] 6.10 [facility] x10(3)/[facility] L LABORATORY Lymphocytes % 8.4 % [facility] LABORATORY Lymphocytes Abs 0.8 (L) 0.9 - 3.2 [facility] x10(3)/[facility] LABORATORY Monocytes % 8.3 % [facility] LABORATORY Monocyte Abs 0.8 0.3 - 0.9 [facility] x10(3)/[facility] LABORATORY Eosinophils % 4.6 % [facility] LABORATORY Eosinophils Abs 0.5 (H) 0.0 - 0.4 [facility] x10(3)/[facility] LABORATORY Basophils % 0.5 % [facility] LABORATORY Basophils Abs 0.0 0.0 - 0.1 [facility] x10(3)/[facility] LABORATORY Immature Gran % 0.40 % [facility] [...] Abs 0.04 0.00 - 0.04 x10(3)/[facility] Y [facility] LABORATORY Specimen Anatomical Collection Method Collection Time Receive d Time (Source) Location / / Volume Laterality Blood specimen 08/13/2017 5:33 AM 018 6:04 (specimen) EST AM EST Resulting Agency Comment Spec In Lab Yonathan Smith MD HEMATOLOGY ORDERABLES Performing Organization Address City/State/[place] [address] (ABNORMAL) Hemogram (08/13/2017 5:33 AM EST) Analysis Performed At Patho logist Time Signature WBC 10.1 (H) 4.0 - 9.5 [facility] x10(3)/[facility] LABORATORY RBC 3.21 (L) 4.58 - [facility] 5.54 [facility] x10(6)/[facility] LABORATORY Hemoglobin 9.2 (L) 13.7 - [facility] 16.5 gm/dL [facility] LABORATORY Hematocrit 29.6 (L) 40.5 - [facility] 48.5 % [facility] LABORATORY MCV 92.2 82.9 - [facility] 93.1 [facility] LABORATORY MCH 28.7 27.5 - [facility] 32.1 pg [facility] LABORATORY MCHC 31.1 (L) 32.0 - [place] DAVIS 35.7 gm/dL [facility] LABORATORY Platelets 263 145 - 357 [facility] x10(3)/[facility] LABORATORY RDWSD 54.8 (H) 36.0 - [facility] RYAN 45.0 [facility] LABORATORY RDWCV 16.4 (H) 11.4 - [facility] RYAN 13.8 % [facility] LABORATORY MPV 9.2 7.6 - 12.9 [facility] LABORATORY nRBC % Auto 0.0 % [facility] LABORATORY nRBC Abs Auto 0.000 0.000 - [place] RY[place] 0.000 [facility] x10(3)/[facility] LABORATORY Specimen Anatomical Collection Method Collection Time Receive d Time (Source) Location / / Volume Laterality Blood specimen 08/13/2017 5:33 AM 018 6:04 (specimen) EST AM EST Resulting Agency Comment Spec In Lab Yonathan Smith MD HEMATOLOGY ORDERABLES Performing Organization Address City/State/[place] [address] (ABNORMAL) Prothrombin Time (08/13/2017 5:33 AM EST) P athologist Signature PT 17.3 (H) 11.8 - 14.0 [facility] LABORATORY INR 1.4 (H) 0.9 - 1.1 [facility] [...] Organization Address City/State/[place] [address] (ABNORMAL) Basic Metabolic Panel (non-fasting) (08/13/2017 5:33 AM EST) athologist Signature Glucose Lvl 126 65 - 199 [facility] mg/dL [facility] LABORATORY Comment: Diabetes: >=200 mg/dL plus symp toms BUN 18 10 - 20 mg/dL [facility] LABORATORY Creatinine 1.16 0.80 - 1.50 mg/dL [facility] [...] 107 mmol/L [facility] LABORATORY CO2 29 22 - 31 mmol/L [facility] LABORATORY Anion Gap 12 5 - 15 mmol/L [facility] LABORATORY Calcium 7.9 (L) 8.5 - 10.5 mg/dL [facility] LABORATORY Estimated GFR >60 >=60 [facility] LABORATORY Comment: The reported eGFR should be multiplied b y 1.2 for patients. The MDRD is not an appropriate measure o f renal function for patients with body mass extremes or in patients with acute kidney failure. [email or web address] [email or web address] Specimen Anatomical Collection Method Collection Time Receive d Time (Source) Location / / Volume Laterality Blood specimen 08/13/2017 5:33 AM 018 6:04 (specimen) EST AM EST Resulting Agency Comment Spec In Lab Yonathan Smith MD CHEMISTRY ORDERABLES Performing Organization Address City/State/ZIP Code [place] [address] POCT Glucose (08/13/2017 4:29 AM EST) athologist Signature POC Glucose 111 65 - 199 [facility] R[facility]AN mg/dL [facility] [...] Organization Address City/State/ZIP Code [place] [address] POCT Glucose (08/12/2017 11:28 PM EST) athologist Signature POC Glucose 164 65 - 199 [facility] mg/dL [facility] [...] Organization Address City/State/ZIP Code [place] [address] (ABNORMAL) POCT Glucose (08/12/2017 7:40 PM EST) athologist Signature POC Glucose 209 (H) 65 - 199 [place] RY[facility] mg/dL [facility] [...] Organization Address City/State/ZIP Code [place] [address] POCT Glucose (08/12/2017 4:24 PM EST) athologist Signature POC Glucose 161 65 - 199 [facility] mg/dL [facility] [...] Address City/State/ZIP Code Phon e Number [address] POCT Glucose (08/12/2017 12:00 PM EST) athologist Signature POC Glucose 167 65 - 199 [facility] [facility] mg/dL [facility] [...] Address City/State/ZIP Code Phon e Number [address] POCT Glucose (08/12/2017 7:25 AM EST) athologist Signature POC Glucose 152 65 - 199 [facility] mg/dL [facility] [...] Organization Address City/State/ZIP [place] [address] (ABNORMAL) Differential, Automated (08/12/2017 6:29 AM EST) Patholo gist Method Time Signature Neutrophils % 78.7 % [facility] LABORATORY Neutr Abs (ANC) 7.94 (H) 1.70 - [facility] 6.10 [facility] x10(3)/[facility] LABORATORY Lymphocytes % 8.8 % [facility] LABORATORY Lymphocytes Abs 0.9 0.9 - 3.2 [facility] x10(3)/[facility] LABORATORY Monocytes % 7.8 % [facility] LABORATORY Monocyte Abs 0.8 0.3 - 0.9 [facility] x10(3)/[facility] LABORATORY Eosinophils % 3.9 % [facility] LABORATORY Eosinophils Abs 0.4 0.0 - 0.4 [facility] x10(3)/[facility] LABORATORY Basophils % 0.3 % [facility] LABORATORY Basophils Abs 0.0 0.0 - 0.1 [facility] x10(3)/[facility] LABORATORY Immature Gran % 0.50 % [facility] LABORATORY Comment: Immature granulocytes(IG's)percentage an d absolute count will include metamyelocytes, myelocytes, and promyelo cytes. Blood smears from CBCs yielding IG's will be scanned manually for concor dance. If this scan disagrees with the automated IG or if promyelocytes are not ed, a manual differential will be performed. Melisa Gran Abs 0.05 (H) 0.00 - 0.04 x10(3)/[facility] LABORATORY Specimen Anatomical Collection Method Collection Time Receive d Time (Source) Location / / Volume Laterality Blood specimen 08/12/2017 6:29 AM 018 6:38 (specimen) EST AM EST Resulting Agency Comment Spec In Lab Yonathan Smith MD HEMATOLOGY ORDERABLES Performing Organization Address City/State/[place] [address] (ABNORMAL) Hemogram (08/12/2017 6:29 AM EST) Analysis Performed At Patho logist Time Signature WBC 10.1 (H) 4.0 - 9.5 [facility] x10(3)/[facility] LABORATORY RBC 3.02 (L) 4.58 - [facility] 5.54 [facility] x10(6)/[facility] LABORATORY Hemoglobin 8.7 (L) 13.7 - [facility] 16.5 gm/dL [facility] LABORATORY Hematocrit 28.1 (L) 40.5 - [facility] 48.5 % [facility] LABORATORY MCV 93.0 82.9 - [facility] 93.1 [facility] LABORATORY MCH 28.8 27.5 - [facility] 32.1 pg [facility] LABORATORY MCHC 31.0 (L) 32.0 - [facility] 35.7 gm/dL [facility] LABORATORY Platelets 223 145 - 357 [facility] x10(3)/[facility] LABORATORY RDWSD 56.1 (H) 36.0 - [facility] 45.0 [facility] LABORATORY RDWCV 16.4 (H) 11.4 - [facility] 13.8 % [facility] LABORATORY MPV 9.0 7.6 - 12.9 [facility] LABORATORY nRBC % Auto 0.0 % [facility] LABORATORY nRBC Abs Auto 0.000 0.000 - [facility] x10(3)/[facility] LABORATORY Specimen Anatomical Collection Method Collection Time Receive d Time (Source) Location / / Volume Laterality Blood specimen 08/12/2017 6:29 AM 018 6:38 (specimen) EST AM EST Resulting Agency Comment Spec In Lab Yonathan Smith MD HEMATOLOGY ORDERABLES Performing Organization Address City/State/[place] [address] (ABNORMAL) Prothrombin Time (08/12/2017 [...] Organization Address City/State/[place] [address] (ABNORMAL) Basic Metabolic Panel (non-fasting) (08/12/2017 6:29 AM EST) athologist Signature Glucose Lvl 151 65 - 199 [facility] mg/dL [facility] LABORATORY Comment: Diabetes: >=200 mg/dL plus symp toms BUN 18 10 - 20 mg/dL [facility] LABORATORY Creatinine 1.11 0.80 - 1.50 mg/dL [facility] LABORATORY Sodium 138 135 [...] estions. Chloride 99 98 - 107 mmol/L [facility] LABORATORY CO2 28 22 - 31 mmol/L [facility] LABORATORY Anion Gap 11 5 - 15 mmol/L [facility] LABORATORY Calcium 7.9 (L) 8.5 - 10.5 mg/dL [facility] LABORATORY Estimated GFR >60 >=60 [facility] LABORATORY Comment: The reported eGFR should be multiplied b y 1.2 for patients. The MDRD is not an appropriate measure o f renal function for patients with body mass extremes or in patients with acute kidney failure. [email or web address] [email or web address] Specimen Anatomical Collection Method Collection Time Receive d Time (Source) Location / / Volume Laterality Blood specimen 08/12/2017 6:29 AM 018 6:38 (specimen) EST AM EST Resulting Agency Comment Spec In Lab Yonathan Smith MD CHEMISTRY ORDERABLES Performing Organization Address City/State/ZIP Code [place] [address] POCT Glucose (08/12/2017 4:08 AM EST) athologist Signature POC Glucose 181 65 - 199 [facility] mg/dL [facility] [...] Organization Address City/State/ZIP Code [place] [address] (ABNORMAL) POCT Glucose (08/12/2017 12:17 AM EST) athologist Signature POC Glucose 221 (H) 65 - 199 [facility] mg/dL [facility] [...] Address City/State/ZIP Code Phon e Number [address] (ABNORMAL) POCT Glucose (08/11/2017 8:52 PM EST) athologist Signature POC Glucose 221 (H) 65 - 199 [facility] mg/dL [facility] [...] Organization Address City/State/ZIP Code [place] [address] POCT Glucose (08/11/2017 5:59 PM EST) athologist Signature POC Glucose 169 65 - 199 [facility] mg/dL [facility] [...] Organization Address City/State/ZIP Code [place] [address] (ABNORMAL) POCT Glucose (08/11/2017 4:08 PM EST) athologist Signature POC Glucose 240 (H) 65 - 199 [facility] mg/dL [facility] [...] Address City/State/ZIP Code Phon e Number [address] POCT Glucose (08/11/2017 12:04 PM EST) athologist Signature POC Glucose 182 65 - 199 [facility] mg/dL [facility] [...] Organization Address City/State/ZIP Code [place] [address] POCT Glucose (08/11/2017 7:31 AM EST) P athologist Signature POC Glucose 156 65 - 199 [facility] [...] Organization Address City/State/ZIP [place] [address] (ABNORMAL) Differential, Automated (08/11/2017 6:16 AM EST) Patholo gist Method Time Signature Neutrophils % 83.7 % [facility] LABORATORY Neutr Abs (ANC) 10.76 (H) 1.70 - [facility] 6.10 [facility] x10(3)/[facility] L LABORATORY Lymphocytes % 6.0 % [facility] LABORATORY Lymphocytes Abs 0.8 (L) 0.9 - 3.2 [facility] x10(3)/[facility] LABORATORY Monocytes % 7.5 % [facility] LABORATORY Monocyte Abs 1.0 (H) 0.3 - 0.9 [facility] x10(3)/[facility] LABORATORY Eosinophils % 2.0 % [facility] LABORATORY Eosinophils Abs 0.3 0.0 - 0.4 [facility] x10(3)/[facility] LABORATORY Basophils % 0.3 % [facility] LABORATORY Basophils Abs 0.0 0.0 - 0.1 [facility] x10(3)/[facility] LABORATORY Immature Gran % 0.50 % [facility] LABORATORY Comment: Immature granulocytes(IG's)percentage an d absolute count will include metamyelocytes, myelocytes, and promyelo cytes. Blood smears from CBCs yielding IG's will be scanned manually for concor dance. If this scan disagrees with the automated IG or if promyelocytes are not ed, a manual differential will be performed. Melisa Gran Abs 0.06 (H) 0.00 - 0.04 x10(3)/[facility] LABORATORY Specimen Anatomical Collection Method Collection Time Receive d Time (Source) Location / / Volume Laterality Blood specimen 08/11/2017 6:16 AM 018 6:24 (specimen) EST AM EST Resulting Agency Comment Spec In Lab Yonathan Smith MD HEMATOLOGY ORDERABLES Performing Organization Address City/State/[place] [address] (ABNORMAL) Hemogram (08/11/2017 6:16 AM EST) Analysis Performed At Patho logist Time Signature WBC 12.9 (H) 4.0 - 9.5 [facility] x10(3)/[facility] LABORATORY RBC 3.28 (L) 4.58 - [facility] 5.54 [facility] x10(6)/[facility] LABORATORY Hemoglobin 9.5 (L) 13.7 - [facility] 16.5 gm/dL [facility] LABORATORY Hematocrit 29.8 (L) 40.5 - [facility] 48.5 % [facility] LABORATORY MCV 90.9 82.9 - [facility]1 [facility] LABORATORY MCH 29.0 27.5 - [facility] 32.1 pg [facility] LABORATORY MCHC 31.9 (L) 32.0 - [facility] 35.7 gm/dL [facility] LABORATORY Platelets 236 145 - 357 [facility] x10(3)/[facility] RDWSD 53.5 (H) 36.0 - [facility] 45.0 [facility] RDWCV 16.3 (H) 11.4 - [facility] 13.8 % [facility] LABORATORY MPV 8.8 7.6 - 12.9 [facility] LABORATORY nRBC % Auto 0.0 % [facility] LABORATORY nRBC Abs Auto 0.000 0.000 - [facility] 0.000 [facility] x10(3)/[facility] LABORATORY Specimen Anatomical Collection Method Collection Time Receive d Time (Source) Location / / Volume Laterality Blood specimen 08/11/2017 6:16 AM 018 6:24 (specimen) EST AM EST Resulting Agency Comment Spec In Lab Yonathan Smith MD HEMATOLOGY ORDERABLES Performing Organization Address City/State/[place] [address] (ABNORMAL) Prothrombin Time (08/11/2017 [...] Organization Address City/State/[place] [address] Basic Metabolic Panel (non-fasting) (08/11/2017 6:16 AM EST) P athologist Signature Glucose Lvl 139 65 - 199 [facility] mg/dL [facility] LABORATORY Comment: Diabetes: >=200 mg/dL plus symp toms BUN 12 10 - 20 mg/dL [facility] LABORATORY Creatinine 0.91 0.80 - 1.50 mg/dL [facility] LABORATORY Sodium 138 135 [...] [facility] LAB[facility] Estimated GFR >60 >=60 [facility] LABORATORY Comment: The reported eGFR should be multiplied b y 1.2 for patients. The MDRD is not an appropriate measure o f renal function for patients with body mass extremes or in patients with acute kidney failure. http://1j[employer]jie/DHnkdep http://1jiajie/DHMCnkf Specimen Anatomical Collection Method Collection Time Receive d Time (Source) Location / / Volume Laterality Blood specimen 08/11/2017 6:16 AM 018 6:24 (specimen) EST AM EST Resulting Agency Comment Spec In Lab Yonathan Smith MD CHEMISTRY ORDERABLES Performing Organization Address City/State/[place] [address] POCT Glucose (08/11/2017 4:07 AM EST) P athologist Signature POC Glucose 162 65 - 199 [facility] mg/dL [facility] [...] Address City/State/ZIP Code Phon e Number [address] POCT Glucose (08/10/2017 11:59 PM EST) athologist Signature POC Glucose 166 65 - 199 [facility] mg/dL [facility] LABORATORY Comment: Supplemental ranges: <140 mg/dL before meals <180 mg/dL all other times of the day Specimen Anatomical Collection Method Collection Time Receive d Time (Source) Location / / Volume Laterality Blood specimen 08/10/2017 11:59 8 (specimen) PM EST 11:59 PM EST Yonathan Smith MD POINT OF CARE TEST ORDERABLE S Performing Organization Address City/[facility]/ZIP Code Phon e Number [address] POCT Glucose (08/10/2017 8:12 PM EST) athologist Signature POC Glucose 156 65 - 199 [facility] mg/dL [facility] LABORATORY Comment: Supplemental ranges: <140 mg/dL before meals <180 mg/dL all other times of the day Specimen Anatomical Collection Method Collection Time Receive d Time (Source) Location / / Volume Laterality Blood specimen 08/10/2017 8:12 PM 018 8:12 (specimen) EST PM EST Yonathan Smith MD POINT OF CARE TEST ORDERABLE S Performing Organization Address City/[facility]/ZIP Code Phon e Number [address] (ABNORMAL) POCT Glucose (08/10/2017 4:42 PM EST) athologist Signature POC Glucose 211 (H) 65 - 199 [facility] mg/dL [facility] [...] Organization Address City/State/ZIP Code Phon e Number [place] [id number] HOSPITAL LABORATORY Drive (ABNORMAL) Differential, Automated (08/10/2017 2:30 PM EST) [facility] Method Time Signature Neutrophils % 87.6 % [facility] LABORATORY Neutr Abs (ANC) 9.90 (H) 1.70 - [facility] 6.10 [facility] x10(3)/[facility] L LABORATORY Lymphocytes % 4.3 % [facility] LABORATORY Lymphocytes Abs 0.5 (L) 0.9 - 3.2 [facility] x10(3)/[facility] LABORATORY Monocytes % 6.0 % [facility] LABORATORY Monocyte Abs 0.7 0.3 - 0.9 [facility] x10(3)/[facility] LABORATORY Eosinophils % 1.1 % [facility] LABORATORY Eosinophils Abs 0.1 0.0 - 0.4 [facility] x10(3)/[facility] LABORATORY Basophils % 0.4 % [facility] LABORATORY Basophils Abs 0.0 0.0 - 0.1 [facility] x10(3)/[facility] LABORATORY Immature Gran % 0.60 % [facility] [...] Abs 0.07 (H) 0.00 - 0.04 x10(3)/[facility] LABORATORY Specimen Anatomical Collection Method Collection Time Receive d Time (Source) Location / / Volume Laterality Blood specimen 08/10/2017 2:30 PM 018 2:48 (specimen) EST PM EST Resulting Agency Comment Spec In Lab Yonathan Smith MD HEMATOLOGY ORDERABLES Performing Organization Address City/[facility]/[place] [address] (ABNORMAL) Hemogram (08/10/2017 2:30 PM EST) Analysis Performed At Patho logist Time Signature WBC 11.3 (H) 4.0 - 9.5 [facility] x10(3)/[facility] LABORATORY RBC 3.13 (L) 4.58 - [facility] 5.54 [facility] x10(6)/[facility] LABORATORY Hemoglobin 8.9 (L) 13.7 - [facility] 16.5 gm/dL [facility] LABORATORY Hematocrit 28.4 (L) 40.5 - [facility] 48.5 % [facility] LABORATORY MCV 90.7 82.9 - [facility] 93[facility]1 [facility] LABORATORY MCH 28.4 27.5 - [facility] 32.1 pg [facility] LABORATORY MCHC 31.3 (L) 32.0 - [facility] 35.7 gm/dL [facility] LABORATORY Platelets 213 145 - 357 [facility] x10(3)/[facility] LABORATORY RDWSD 53.7 (H) 36.0 - [facility] 45[facility]0 [facility] LABORATORY RDWCV 16.4 (H) 11.4 - [facility] 13.8 % [facility] LABORATORY MPV 8.9 7.6 - 12.9 [facility] LABORATORY nRBC % Auto 0.0 % [facility] LABORATORY nRBC Abs Auto 0.000 0.000 - [facility] x10(3)/[facility] LABORATORY Specimen Anatomical Collection Method Collection Time Receive d Time (Source) Location / / Volume Laterality Blood specimen 08/10/2017 2:30 PM 018 2:48 (specimen) EST PM EST Resulting Agency Comment Spec In Lab Yonathan Smith MD HEMATOLOGY ORDERABLES Performing Organization Address City/State/[place] [address] (ABNORMAL) POCT Glucose (08/10/2017 1:50 PM EST) P athologist Signature POC Glucose 243 (H) 65 - 199 [facility] mg/dL [facility] [...] Address City/State/ZIP Code Phon e Number [address] POCT Glucose (08/10/2017 11:21 AM EST) P athologist Signature POC Glucose 156 65 - 199 [facility] [...] Organization Address City/State/ZIP Code [place] [address] (ABNORMAL) Differential, Automated (08/10/2017 10:28 AM EST) Patholo gist Method Time Signature Neutrophils % 85.3 % [facility] LABORATORY Neutr Abs (ANC) 9.43 (H) 1.70 - [facility] 6.10 [facility] x10(3)/[facility] L LABORATORY Lymphocytes % 5.5 % [facility] LABORATORY Lymphocytes Abs 0.6 (L) 0.9 - 3.2 [facility] x10(3)/[facility] LABORATORY Monocytes % 5.9 % [facility] LABORATORY Monocyte Abs 0.6 0.3 - 0.9 [facility] x10(3)/[facility] LABORATORY Eosinophils % 2.1 % [facility] LABORATORY Eosinophils Abs 0.2 0.0 - 0.4 [facility] x10(3)/[facility] LABORATORY Basophils % 0.4 % [facility] LABORATORY Basophils Abs 0.0 0.0 - 0.1 [facility] x10(3)/[facility] LABORATORY Immature Gran % 0.80 % [facility] LABORATORY Comment: Immature granulocytes(IG's)percentage an d absolute count will include metamyelocytes, myelocytes, and promyelo cytes. Blood smears from CBCs yielding IG's will be scanned manually for concor dance. If this scan disagrees with the automated IG or if promyelocytes are not ed, a manual differential will be performed. Melisa Gran Abs 0.09 (H) 0.00 - 0.04 x10(3)/[facility] LABORATORY Specimen Anatomical Collection Method Collection Time Receive d Time (Source) Location / / Volume Laterality Blood specimen 08/10/2017 10:28 8 (specimen) AM EST 10:35 AM EST Resulting Agency Comment Spec In Lab Yonathan Smith MD HEMATOLOGY ORDERABLES Performing Organization Address City/State/[place] [address] (ABNORMAL) Hemogram (08/10/2017 10:28 AM EST) Analysis Performed At Patho logist Time Signature WBC 11.0 (H) 4.0 - 9.5 [facility] x10(3)/[facility] LABORATORY RBC 3.02 (L) 4.58 - [facility] 5.54 [facility] x10(6)/[facility] LABORATORY Hemoglobin 8.8 (L) 13.7 - [facility] 16.5 gm/dL [facility] LABORATORY Hematocrit 28.1 (L) 40.5 - [facility] 48.5 % [facility] LABORATORY MCV 93.0 82.9 - [facility] 93.1 [facility] LABORATORY MCH 29.1 27.5 - [facility] 32.1 pg [facility] LABORATORY MCHC 31.3 (L) 32.0 - [facility] 35.7 gm/dL [facility] LABORATORY Platelets 207 145 - 357 [facility] x10(3)/[facility] RDWSD 55.3 (H) 36.0 - [facility] 45.0 [facility] RDWCV 16.4 (H) 11.4 - [facility] 13.8 % [facility] LABORATORY MPV 9.0 7.6 - 12.9 [facility] LABORATORY nRBC % Auto 0.0 % [facility] LABORATORY nRBC Abs Auto 0.000 0.000 - [facility] 0.000 [facility] x10(3)/[facility] LABORATORY Specimen Anatomical Collection Method Collection Time Receive d Time (Source) Location / / Volume Laterality Blood specimen 08/10/2017 10:28 8 (specimen) AM EST 10:35 AM EST Resulting Agency Comment Spec In Lab Yonathan Smith MD HEMATOLOGY ORDERABLES Performing Organization Address City/State/[place] [address] VS Angiogram/intervention (vascular) (08/10/2017 [...] 2.5x80 5. Completion RLE angiogram 6. L BACKEND DEVELOPER angiogram 7. 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 L BACKEND DEVELOPER access in the distal L BACKEND DEVELOPER. - Closure device: Mynx Technical Procedure: ?The [...] for a 45cm 5F Destination. V18 and [place] a nd QuickCross catheters were used [...] bifurcation. Access appeared in the distal R BACKEND DEVELOPER. Closure and sheath removal was performed with [...] 2.5x80 5. Completion RLE angiogram 6. L BACKEND DEVELOPER angiogram 7. 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 L BACKEND DEVELOPER access in the distal L BACKEND DEVELOPER. - Closure device: Mynx Technical Procedure: The [...] for a 45cm 5F Destination. V18 and [place] a nd QuickCross catheters were used [...] bifurcation. Access appeared in the distal R BACKEND DEVELOPER. Closure and sheath removal was performed with [...] (ABNORMAL) Differential, Automated (08/10/2017 5:50 AM EST) [facility] Method Time Signature Neutrophils % 80.1 % [facility] LABORATORY Neutr Abs (ANC) 9.01 (H) 1.70 - [facility] 6.10 [facility] x10(3)/[facility] LABORATORY Lymphocytes % 8.8 % [facility] LABORATORY Lymphocytes Abs 1.0 0.9 - 3.2 [facility] x10(3)/[facility] LABORATORY Monocytes % 8.3 % [facility] LABORATORY Monocyte Abs 0.9 0.3 - 0.9 [facility] x10(3)/[facility] LABORATORY Eosinophils % 2.0 % [facility] LABORATORY Eosinophils Abs 0.2 0.0 - 0.4 [facility] x10(3)/[facility] LABORATORY Basophils % 0.4 % [facility] LABORATORY Basophils Abs 0.0 0.0 - 0.1 [facility] x10(3)/[facility] LABORATORY Immature Gran % 0.40 % [facility] [...] Abs 0.05 (H) 0.00 - 0.04 x10(3)/[facility] LABORATORY Specimen Anatomical Collection Method Collection Time Receive d Time (Source) Location / / Volume Laterality Blood specimen 08/10/2017 5:50 AM 018 5:59 (specimen) EST AM EST Resulting Agency Comment Spec In Lab Yonathan Smith MD HEMATOLOGY ORDERABLES Performing Organization Address City/State/ZIP [place] [address] (ABNORMAL) Hemogram (08/10/2017 5:50 AM EST) Analysis Performed At Patho logist Time Signature WBC 11.3 (H) 4.0 - 9.5 [facility](3[facility] LABORATORY RBC 3.15 (L) 4.58 - [place] RYAN 5.54 [facility] x10(6)/[facility] LABORATORY Hemoglobin 8.9 (L) 13.7 - [facility] 16.5 gm/dL [facility] LABORATORY Hematocrit 29.0 (L) 40.5 - [facility] 48.5 % [facility] LABORATORY MCV 92.1 82.9 - [facility] 93.1 [facility] LABORATORY MCH 28.3 27.5 - [facility] 32.1 pg [facility] LABORATORY MCHC 30.7 (L) 32.0 - [facility] 35.7 gm/dL [facility] LABORATORY Platelets 231 145 - 357 [facility] x10(3)/[facility] LABORATORY RDWSD 53.9 (H) 36.0 - [facility] 45.0 [facility] LABORATORY RDWCV 16.2 (H) 11.4 - [facility] RYAN 13.8 % [facility] LABORATORY MPV 8.7 7.6 - 12.9 [facility] nRBC % Auto 0.0 % [facility] LABORATORY nRBC Abs Auto 0.000 0.000 - [place] 0.000 [facility] x10(3)/[facility] LABORATORY Specimen Anatomical Collection Method Collection Time Receive d Time (Source) Location / / Volume Laterality Blood specimen 08/10/2017 5:50 AM 018 5:59 (specimen) EST AM EST Resulting Agency Comment Spec In Lab Yonathan Smith MD HEMATOLOGY ORDERABLES Performing Organization Address City/State/ZIP [place] [address] (ABNORMAL) Basic Metabolic Panel (non-fasting) (08/10/2017 5:50 AM EST) athologist Signature Glucose Lvl 135 65 - 199 [facility] mg/dL [facility] LABORATORY Comment: Diabetes: >=200 mg/dL plus symp toms BUN 17 10 - 20 mg/dL [facility] LABORATORY Creatinine 1.05 0.80 - 1.50 mg/dL [facility] LABORATORY Sodium 144 135 [...] [facility] LAB[facility] Estimated GFR >60 >=60 [facility] LABORATORY Comment: The reported eGFR should be multiplied b y 1.2 for patients. The MDRD is not an appropriate measure o f renal function for patients with body mass extremes or in patients with acute kidney failure. [email or web address]/DHnkdep http://1jiajie/DHMCnkf Specimen Anatomical Collection Method Collection Time Receive d Time (Source) Location / / Volume Laterality Blood specimen 08/10/2017 5:50 AM 018 5:59 (specimen) EST AM EST Resulting Agency Comment Spec In Lab Yonathan Smith MD CHEMISTRY ORDERABLES Performing Organization Address City/State/[place] [address] (ABNORMAL) Prothrombin Time (08/10/2017 5:50 AM EST) athologist Signature PT 16.8 (H) 11.8 - 14.0 [facility] LABORATORY INR 1.4 (H) 0.9 - 1.1 [facility] [...] Organization Address City/State/ZIP Code [place] [address] (ABNORMAL) POCT Glucose (08/10/2017 4:01 AM EST) athologist Signature POC Glucose 206 (H) 65 - 199 [facility] mg/dL [facility] [...] Organization Address City/State/ZIP [place] [address] POCT Glucose (08/10/2017 2:01 AM EST) athologist Signature POC Glucose 188 65 - 199 [facility] mg/dL [facility] [...] Address City/State/ZIP Code Phon e Number [address] (ABNORMAL) POCT Glucose (08/09/2017 11:42 PM EST) athologist Signature POC Glucose 283 (H) 65 - 199 [facility] mg/dL [facility] LABORATORY Comment: Supplemental ranges: <140 mg/dL before meals <180 mg/dL all other times of the day Specimen Anatomical Collection Method Collection Time Receive d Time (Source) Location / / Volume Laterality Blood specimen 08/09/2017 11:42 8 (specimen) PM EST 11:42 PM EST Yonathan Smith MD POINT OF CARE TEST ORDERABLE S Performing Organization Address City/[facility]/ZIP Code [place] [address] POCT Glucose (08/09/2017 8:55 PM EST) athologist Signature POC Glucose 182 65 - 199 [facility] mg/dL [facility] LABORATORY Comment: Supplemental ranges: <140 mg/dL before meals <180 mg/dL all other times of the day Specimen Anatomical Collection Method Collection Time Receive d Time (Source) Location / / Volume Laterality Blood specimen 08/09/2017 8:55 PM 018 8:55 (specimen) EST PM EST Yonathan Smith MD POINT OF CARE TEST ORDERABLE S Performing Organization Address City/[facility]/ZIP Code [place] [address] (ABNORMAL) APTT (08/09/2017 6:42 PM EST) athologist Signature PTT 90 (H) 25 - 35 sec [facility] LABORATORY Comment: The recommended therapeutic range for fu ll dose, unfractionated heparin at [facility] is 80 ? 114 seconds. The use [...] Address City/State/ZIP Code Phon e Number [address] POCT Glucose (08/09/2017 4:41 PM EST) athologist Signature POC Glucose 195 65 - 199 [facility] mg/dL [facility] LABORATORY Comment: Supplemental ranges: <140 mg/dL before meals <180 mg/dL all other times of the day Specimen Anatomical Collection Method Collection Time Receive d Time (Source) Location / / Volume Laterality Blood specimen 08/09/2017 4:41 PM 018 4:41 (specimen) EST PM EST Yonathan Smith MD POINT OF CARE TEST ORDERABLE S Performing Organization Address City/[facility]/ZIP Code Phon e Number [address] POCT Glucose (08/09/2017 12:29 PM EST) athologist Signature POC Glucose 140 65 - 199 [facility] mg/dL [facility] [...] Address City/State/ZIP Code Phon e Number [address] POCT Glucose (08/09/2017 9:59 AM EST) athologist Signature POC Glucose 135 65 - 199 [place] mg/dL [facility] LABORATORY Comment: Supplemental ranges: <140 mg/dL before meals <180 mg/dL all other times of the day Specimen Anatomical Collection Method Collection Time Receive d Time (Source) Location / / Volume Laterality Blood specimen 08/09/2017 9:59 AM 018 9:59 (specimen) EST AM EST Yonathan Smith MD POINT OF CARE TEST ORDERABLE S Performing Organization Address [facility]/ZIP Code Phon e Number [address] Specimen to Pathology (08/09/2017 8:41 AM EST) Specimen Anatomical Collection Method Collection Time Receive d Time (Source) Location / / Volume Laterality AP Specimen 08/09/2017 8:41 AM 8 8:41 EST AM EST Narrative [facility] LABORAT ORY - 08/09/2017 8:41 AM EST Specimen requisition ordered. ??Separate Pathology report to follow Yonathan Smith MD PATHOLOGY/CYTOLOGY ORDERABLE S Performing Organization Address City/[facility]/ZIP [place] [address] Surgical Pathology Report (08/09/2017 8:40 AM EST) Component Value Ref Test Analysis Performed At [facility] Range Method Time Signature Surgical [id number] ? Location: [facility]; [facility]; A [facility] Report The signing pathologist has (i) examined the relevant preparation(s) for the [facility] specimen(s) and (ii) rendered or confirmed the diagnosis(es) . HOSPITAL LABORATORY . 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 ?Viable proximal resection margins. Electronically signed by: ??Henrique Saravia MD Verified: ??08/13/2017 ?Pathologist Performed at: ??-[facility] Dept. of Pathology, [place], [place] CLINICAL INFORMATION Specimen Submitted: A - [...] MD PATHOLOGY/CYTOLOGY ORDERABLE S Performing Organization Address City/[facility]/ZIP [place] [address] Anaerobic Culture (08/09/2017 8:30 AM EST) [facility] gist Method Time Signature Anaerobic No anaerobic [facility] Culture organisms [facility] LABORATORY Specimen Anatomical Collection Method Collection [...] Organization Address City/State/ZIP [place] [address] (ABNORMAL) Abscess/Wound Aspirate Culture (08/09/2017 8:30 AM EST) Patholo gist Method Time Signature Abscess/Wound Moderate mixed [place] Aspirate bacterial [place] Culture morphotypes [facility] normal LABORATORY cutaneous leroy (A) Gram Stain Rare White Blood Cells [place] Few Gram Positive Cocci in pairs [place] (A) [facility] LABORATORY Organism Gram Positive [place] Cocci in pairs [place] (A) [facility] LABORATORY Specimen Anatomical Collection Method Collection Time Receive d Time (Source) Location / / Volume Laterality Specimen from STRUCTURE OF RIGHT 08/09/2017 8:30 AM 9:10 abscess FOOT / Unknown EST AM EST (specimen) Comment: SWAB RIGHT GREAT TOE ABSCESS FO R AEROBIC AND ANAEROBIC CULTURES. Resulting Agency Comment Spec In Lab Yonathan Smith MD MICROBIOLOGY - GENERAL ORDER [place] Performing Organization Address City/[facility]/ZIP Code Phon e Number [address] POCT Glucose (08/09/2017 4:28 AM EST) P athologist Signature POC Glucose 128 65 - 199 [facility] LABORATORY Comment: Supplemental ranges: <140 mg/dL before meals <180 mg/dL all other times of the day Specimen Anatomical Collection Method Collection Time Receive d Time (Source) Location / / Volume Laterality Blood specimen 08/09/2017 4:28 AM 018 4:28 (specimen) EST AM EST Yonathan Smith MD POINT OF CARE TEST ORDERABLE S Performing Organization Address City/[facility]/ZIP Code Phon e Number [address] ABORH Recheck Status (08/09/2017 1:10 AM EST) Patholo gist Method Time Signature ABORH Type Completed [facility] LABORATORY Specimen Anatomical Collection Method Collection Time Receive d Time (Source) Location / / Volume Laterality Blood specimen 08/09/2017 1:10 AM 018 1:35 (specimen) EST AM EST Resulting Agency Comment Spec In Lab Yonathan Smith MD BLOOD BANK ORDERABLES Performing Organization Address City/State/ZIP [place] [address] Antibody screen (08/09/2017 1:10 AM EST) Patholo gist Method Time Signature Ab Screen Negative [facility] LABORATORY Expires at 08/12/2017 [place] ZHAORYAN [id number] on: [facility] LABORATORY Specimen Anatomical Collection Method Collection Time Receive d Time (Source) Location / / Volume Laterality Blood specimen 08/09/2017 1:10 AM 018 1:35 (specimen) EST AM EST Resulting Agency Comment Spec In Lab Yonathan Smith MD BLOOD BANK ORDERABLES Performing Organization Address City/[facility]/ZIP Code Phon e Number [address] ABO/Rh Typing (08/09/2017 1:10 AM EST) P athologist Signature ABORh Type O Pos [facility] LABORATORY Specimen Anatomical Collection Method Collection Time Receive d Time (Source) Location / / Volume Laterality Blood specimen 08/09/2017 1:10 AM 018 1:35 (specimen) EST AM EST Resulting Agency Comment Spec In Lab Yonathan Smith MD BLOOD BANK ORDERABLES Performing Organization Address City/[facility]/ZIP Code Phon e Number [address] (ABNORMAL) APTT (08/09/2017 1:10 AM EST) P athologist Signature PTT 86 (H) 25 - 35 sec [facility] LABORATORY Comment: The recommended therapeutic range for fu ll dose, unfractionated heparin at [facility] is 80 ? 114 seconds. The use [...] Smith MD HEMATOLOGY ORDERABLES Performing Organization Address City/[facility]/ZIP [place] [address] (ABNORMAL) Differential, Automated (08/09/2017 1:10 AM EST) Patholo gist Method Time Signature Neutrophils % 76.2 % [facility] LABORATORY Neutr Abs (ANC) 8.59 (H) 1.70 - [facility] 6.10 [facility] x10(3)/[facility] LABORATORY Lymphocytes % 11.0 % [facility] LABORATORY Lymphocytes Abs 1.2 0.9 - 3.2 [facility] x10(3)/[facility] LABORATORY Monocytes % 8.4 % [facility] LABORATORY Monocyte Abs 1.0 (H) 0.3 - 0.9 [facility] x10(3)/[facility] LABORATORY Eosinophils % 3.5 % [facility] LABORATORY Eosinophils Abs 0.4 0.0 - 0.4 [facility] x10(3)/[facility] LABORATORY Basophils % 0.5 % [facility] LABORATORY Basophils Abs 0.1 0.0 - 0.1 [facility] x10(3)/[facility] LABORATORY Immature Gran % 0.40 % [facility] [...] Abs 0.05 (H) 0.00 - 0.04 x10(3)/[facility] LABORATORY Specimen Anatomical Collection Method Collection Time Receive d Time (Source) Location / / Volume Laterality Blood specimen 08/09/2017 1:10 AM 018 1:19 (specimen) EST AM EST Resulting Agency Comment Spec In Lab Yonathan Smith MD HEMATOLOGY ORDERABLES Performing Organization Address City/State/ZIP Code Phon e Number [address] (ABNORMAL) Hemogram (08/09/2017 1:10 AM EST) Analysis Performed At Patho logist Time Signature WBC 11.3 (H) 4.0 - 9.5 [facility] x10(3)/[facility] LABORATORY RBC 3.47 (L) 4.58 - [facility] 5.54 [facility] x10(6)/[facility] LABORATORY Hemoglobin 10.0 (L) 13.7 - [facility] 16.5 gm/dL [facility] LABORATORY Hematocrit 31.9 (L) 40.5 - [facility] 48.5 % [facility] LABORATORY MCV 91.9 82.9 - [facility] 93.1 [facility] LABORATORY MCH 28.8 27.5 - [facility] 32.1 pg [facility] LABORATORY MCHC 31.3 (L) 32.0 - [facility] 35.7 gm/dL [facility] LABORATORY Platelets 234 145 - 357 [facility] x10(3)/[facility] LABORATORY RDWSD 54.0 (H) 36.0 - [facility] 45.0 [facility] LABORATORY RDWCV 16.2 (H) 11.4 - [facility] 13.8 % [facility] LABORATORY MPV 8.7 7.6 - 12.9 [facility] LABORATORY nRBC % Auto 0.0 % [facility] LABORATORY nRBC Abs Auto 0.000 0.000 - [facility] 0.000 [facility] x10(3)/[facility] LABORATORY Specimen Anatomical Collection Method Collection Time Receive d Time (Source) Location / / Volume Laterality Blood specimen 08/09/2017 1:10 AM 018 1:19 (specimen) EST AM EST Resulting Agency Comment Spec In Lab Yonathan Smith MD HEMATOLOGY ORDERABLES Performing Organization Address City/State/[place] [address] (ABNORMAL) Prothrombin Time (08/09/2017 [...] Organization Address City/State/ZIP Code Phon e Number [place] [id number] HOSPITAL LAB[address]ORY Drive (ABNORMAL) Basic Metabolic Panel (non-fasting) (08/09/2017 1:10 AM EST) P athologist Signature Glucose Lvl 108 65 - 199 [facility] mg/dL [facility] LABORATORY Comment: Diabetes: >=200 mg/dL plus symp toms BUN 34 (H) 10 - 20 mg/dL [facility] LABORATORY Creatinine 1.54 (H) 0.80 - 1.50 mg/dL [facility] LABORATORY Sodium 138 135 [...] Chloride 96 (L) 98 - 107 mmol/L [facility] LABORATORY CO2 29 22 - 31 mmol/L [facility] LABORATORY Anion Gap 13 5 - 15 mmol/L [facility] LABORATORY Calcium 8.3 (L) 8.5 - 10.5 mg/dL [facility] LABORATORY Estimated GFR 45 (L) >=60 [facility] LABORATORY Comment: The reported eGFR should be multiplied b y 1.2 for patients. The MDRD is not an appropriate measure o f renal function for patients with body mass extremes or in patients with acute kidney failure. http://[email or web address]/DHnkdep [email or web address]/DHMCnkf Specimen Anatomical Collection Method Collection Time Receive d Time (Source) Location / / Volume Laterality Blood specimen 08/09/2017 1:10 AM 018 1:19 (specimen) EST AM EST Resulting Agency Comment Spec In Lab Yonathan Smith MD CHEMISTRY ORDERABLES Performing Organization Address City/State/ZIP Code Phon e Number [address] POCT Glucose (08/09/2017 12:05 AM EST) athologist Signature POC Glucose 128 65 - 199 [facility] mg/dL [facility] LABORATORY Comment: Supplemental ranges: <140 mg/dL before meals <180 mg/dL all other times of the day Specimen Anatomical Collection Method Collection Time Receive d Time (Source) Location / / Volume Laterality Blood specimen 08/09/2017 12:05 8 (specimen) AM EST 12:05 AM EST Yonathan Smith MD POINT OF CARE TEST ORDERABLE S Performing Organization Address City/[facility]/ZIP [place] [address] (ABNORMAL) POCT Glucose (08/08/2017 7:36 PM EST) athologist Signature POC Glucose 215 (H) 65 - 199 [facility]/dL [facility] [...] Organization Address City/State/ZIP [place] [address] (ABNORMAL) POCT Glucose (08/08/2017 6:23 PM EST) P athologist Signature POC Glucose 216 (H) 65 - 199 [facility] mg/dL [facility] LABORATORY Comment: Supplemental ranges: <140 mg/dL before meals <180 mg/dL all other times of the day Specimen Anatomical Collection Method Collection Time Receive d Time (Source) Location / / Volume Laterality Blood specimen 08/08/2017 6:23 PM 018 6:23 (specimen) EST PM EST Yonathan Smith MD POINT OF CARE TEST ORDERABLE S Performing Organization Address City/[facility]/ZIP Code [place] [address] (ABNORMAL) APTT (08/08/2017 6:00 PM EST) athologist Signature PTT 97 (H) 25 - 35 sec [facility] LABORATORY Comment: The recommended therapeutic range for fu ll dose, unfractionated heparin at [facility] is 80 ? 114 seconds. The use [...] Smith MD HEMATOLOGY ORDERABLES Performing Organization Address City/[facility]/ZIP Code Phon e Number [address] POCT Glucose (08/08/2017 4:42 PM EST) athologist Signature POC Glucose 78 65 - 199 [facility] mg/dL [facility] LABORATORY Comment: Supplemental ranges: <140 mg/dL before meals <180 mg/dL all other times of the day Specimen Anatomical Collection Method Collection Time Receive d Time (Source) Location / / Volume Laterality Blood specimen 08/08/2017 4:42 PM 018 4:42 (specimen) EST PM EST Yonathan Smith MD POINT OF CARE TEST ORDERABLE S Performing Organization Address City/[facility]/ZIP Code [place] [address] (ABNORMAL) POCT Glucose (08/08/2017 4:01 PM EST) athologist Signature POC Glucose 58 (L) 65 - 199 [facility] mg/dL [facility] [...] Address City/State/ZIP Code Phon e Number [address] POCT Glucose (08/08/2017 11:51 AM EST) athologist Signature POC Glucose 90 65 - 199 [facility] mg/dL [facility] [...] Organization Address City/State/ZIP [place] [address] (ABNORMAL) APTT (08/08/2017 10:27 AM EST) athologist Signature PTT 64 (H) 25 - 35 sec [facility] LABORATORY Comment: The recommended therapeutic range for fu ll dose, unfractionated heparin at [facility] is 80 ? 114 seconds. The use [...] Address City/State/ZIP Code Phon e Number [address] POCT Glucose (08/08/2017 8:02 AM EST) athologist Signature POC Glucose 178 65 - 199 [facility] mg/dL [facility] LABORATORY Comment: Supplemental ranges: <140 mg/dL before meals <180 mg/dL all other times of the day Specimen Anatomical Collection Method Collection Time Receive d Time (Source) Location / / Volume Laterality Blood specimen 08/08/2017 8:02 AM 018 8:02 (specimen) EST AM EST Yonathan Smith MD POINT OF CARE TEST ORDERABLE S Performing Organization Address City/[facility]/ZIP Code Phon e Number [address] (ABNORMAL) APTT (08/08/2017 4:51 AM EST) athologist Signature PTT >160 25 - 35 [facility] (Critical) sec [facility] LABORATORY Comment: Called by: HOWARD, Read back by: Melba Jaramillo, Date/Time:08/08/17 05:43. The recommended therapeutic range for fu ll dose, unfractionated heparin at [facility] is 80 ? 114 seconds. The use [...] Smith MD HEMATOLOGY ORDERABLES Performing Organization Address City/[facility]/ZIP Code Phon e Number [address] (ABNORMAL) Differential, Automated (08/08/2017 4:51 AM EST) Patholo gist Method Time Signature Neutrophils % 77.9 % [facility] LABORATORY Neutr Abs (ANC) 8.17 (H) 1.70 - [facility] 6.10 [facility] x10(3)/[facility] LABORATORY Lymphocytes % 10.3 % [facility] LABORATORY Lymphocytes Abs 1.1 0.9 - 3.2 [facility] x10(3)/[facility] LABORATORY Monocytes % 7.0 % [facility] LABORATORY Monocyte Abs 0.7 0.3 - 0.9 [facility] x10(3)/[facility] LABORATORY Eosinophils % 3.6 % [facility] LABORATORY Eosinophils Abs 0.4 0.0 - 0.4 [facility] x10(3)/[facility] LABORATORY Basophils % 0.5 % [facility] LABORATORY Basophils Abs 0.0 0.0 - 0.1 [facility] x10(3)/[facility] LABORATORY Immature Gran % 0.70 % [facility] [...] Abs 0.07 (H) 0.00 - 0.04 x10(3)/[facility] LABORATORY Specimen Anatomical Collection Method Collection Time Receive d Time (Source) Location / / Volume Laterality Blood specimen 08/08/2017 4:51 AM 018 5:14 (specimen) EST AM EST Resulting Agency Comment Spec In Lab Yonathan Smith MD HEMATOLOGY ORDERABLES Performing Organization Address City/State/[place] [address] (ABNORMAL) Hemogram (08/08/2017 4:51 AM EST) Analysis Performed At Patho logist Time Signature WBC 10.5 (H) 4.0 - 9.5 [facility] x10(3)/[facility] LABORATORY RBC 3.27 (L) 4.58 - [facility] 5.54 [facility] x10(6)/[facility] LABORATORY Hemoglobin 9.3 (L) 13.7 - [place] 16.5 gm/dL [facility] LABORATORY Hematocrit 30.3 (L) 40.5 - [place] 48.5 % [facility] LABORATORY MCV 92.7 82.9 - [place] 93.1 [facility] LABORATORY MCH 28.4 27.5 - [place] 32.1 pg [facility] LABORATORY MCHC 30.7 (L) 32.0 - [place] 35.7 gm/dL [facility] LABORATORY Platelets 252 145 - 357 [facility] x10(3)/[facility] LABORATORY RDWSD 54.6 (H) 36.0 - [place] 45.0 [facility] LABORATORY RDWCV 16.2 (H) 11.4 - [facility] [place] 13.8 % [facility] LABORATORY MPV 9.1 7.6 - 12.9 [facility] LABORATORY nRBC % Auto 0.0 % [facility] LABORATORY nRBC Abs Auto 0.000 0.000 - [place] 0.000 [facility] x10(3)/[facility] LABORATORY Specimen Anatomical Collection Method Collection Time Receive d Time (Source) Location / / Volume Laterality Blood specimen 08/08/2017 4:51 AM 018 5:14 (specimen) EST AM EST Resulting Agency Comment Spec In Lab Yonathan Smith MD HEMATOLOGY ORDERABLES Performing Organization Address City/State/ZIP [place] [address] (ABNORMAL) Prothrombin Time (08/08/2017 4:51 AM EST) P athologist Signature PT 18.1 (H) 11.8 - 14.0 [facility] LABORATORY INR 1.5 (H) 0.9 - 1.1 [facility] [...] Organization Address City/State/[place] [address] (ABNORMAL) Basic Metabolic Panel (non-fasting) (08/08/2017 4:51 AM EST) athologist Signature Glucose Lvl 229 (H) 65 - 199 [facility] mg/dL [facility] LABORATORY Comment: Diabetes: >=200 mg/dL plus symp toms BUN 35 (H) 10 - 20 mg/dL [facility] LABORATORY Creatinine 1.57 (H) 0.80 - 1.50 mg/dL [facility] LABORATORY Sodium 136 135 [...] Chloride 94 (L) 98 - 107 mmol/L [facility] [...] or in patients with acute kidney failure. [email or web address] [email or web address] Specimen Anatomical Collection Method Collection Time Receive d Time (Source) Location / / Volume Laterality Blood specimen 08/08/2017 4:51 AM 018 5:14 (specimen) EST AM EST Resulting Agency Comment Spec In Lab Yonathan Smith MD CHEMISTRY ORDERABLES Performing Organization Address City/[facility]/ZIP Code Phon e Number [address] POCT Glucose (08/08/2017 4:20 AM EST) athologist Signature POC Glucose 193 65 - 199 [facility] LABORATORY Comment: Supplemental ranges: <140 mg/dL before meals <180 mg/dL all other times of the day Specimen Anatomical Collection Method Collection Time Receive d Time (Source) Location / / Volume Laterality Blood specimen 08/08/2017 4:20 AM 018 4:20 (specimen) EST AM EST Yonathan Smith MD POINT OF CARE TEST ORDERABLE S Performing Organization Address City/[facility]/ZIP Code [place] [address] POCT Glucose (08/07/2017 11:11 PM EST) athologist Signature POC Glucose 124 65 - 199 [facility] mg/dL [facility] [...] Organization Address City/State/ZIP [place] [address] (ABNORMAL) APTT (08/07/2017 10:18 PM EST) athologist Signature PTT 114 (H) 25 - 35 sec [facility] LABORATORY Comment: The recommended therapeutic range for fu ll dose, unfractionated heparin at [facility] is 80 ? 114 seconds. The use [...] Address City/State/ZIP Code Phon e Number [address] POCT Glucose (08/07/2017 8:10 PM EST) athologist Signature POC Glucose 140 65 - 199 [facility] [...] Address City/State/ZIP Code Phon e Number [address] POCT Glucose (08/07/2017 5:27 PM EST) athologist Signature POC Glucose 187 65 - 199 [facility] mg/dL [facility] [...] Address City/State/ZIP Code Phon e Number [address] POCT Glucose (08/07/2017 3:29 PM EST) athologist Signature POC Glucose 86 65 - 199 [place] mg/dL [facility] [...] Organization Address City/State/ZIP [place] [address] (ABNORMAL) APTT (08/07/2017 2:50 PM EST) athologist Signature PTT 60 (H) 25 - 35 sec [facility] LABORATORY Comment: The recommended therapeutic range for fu ll dose, unfractionated heparin at [facility] is 80 ? 114 seconds. The use [...] Organization Address City/State/ZIP [place] [address] (ABNORMAL) POCT Glucose (08/07/2017 2:23 PM EST) athologist Signature POC Glucose 55 (L) 65 - 199 [facility] mg/dL [facility] LABORATORY Comment: Supplemental ranges: <140 mg/dL before meals <180 mg/dL all other times of the day Specimen Anatomical Collection Method Collection Time Receive d Time (Source) Location / / Volume Laterality Blood specimen 08/07/2017 2:23 PM 018 2:23 (specimen) EST PM EST Yonathan Smith MD POINT OF CARE TEST ORDERABLE S Performing Organization Address City/[facility]/ZIP Code [place] [address] POCT Glucose (08/07/2017 12:08 PM EST) athologist Signature POC Glucose 77 65 - 199 [facility] mg/dL [facility] Comment: Supplemental ranges: <140 mg/dL before meals <180 mg/dL all other times of the day Specimen Anatomical Collection Method Collection Time Receive d Time (Source) Location / / Volume Laterality Blood specimen 08/07/2017 12:08 8 (specimen) PM EST 12:08 PM EST Yonathan Smith MD POINT OF CARE TEST ORDERABLE S Performing Organization Address City/State/[place] [address] (ABNORMAL) Differential, Automated (08/07/2017 7:30 AM EST) [facility] gist Method Time Signature Neutrophils % 73.8 % [facility] LABORATORY Neutr Abs (ANC) 7.17 (H) 1.70 - [facility] 6.10 [facility] x10(3)/[facility] LABORATORY Lymphocytes % 12.2 % [facility] LABORATORY Lymphocytes Abs 1.2 0.9 - 3.2 [facility] x10(3)/[facility] LABORATORY Monocytes % 9.0 % [facility] LABORATORY Monocyte Abs 0.9 0.3 - 0.9 [facility] x10(3)/[facility] LABORATORY Eosinophils % 3.9 % [facility] LABORATORY Eosinophils Abs 0.4 0.0 - 0.4 [facility] x10(3)/[facility] LABORATORY Basophils % 0.6 % [facility] LABORATORY Basophils Abs 0.1 0.0 - 0.1 [facility] x10(3)/[facility] LABORATORY Immature Gran % 0.50 % [facility] LABORATORY Comment: Immature granulocytes(IG's)percentage an d absolute count will include metamyelocytes, myelocytes, and promyelo cytes. Blood smears from CBCs yielding IG's will be scanned manually for concor dance. If this scan disagrees with the automated IG or if promyelocytes are not ed, a manual differential will be performed. Melisa Gran Abs 0.05 (H) 0.00 - 0.04 x10(3)/[facility] LABORATORY Specimen Anatomical Collection Method Collection Time Receive d Time (Source) Location / / Volume Laterality Blood specimen 08/07/2017 7:30 AM 018 7:45 (specimen) EST AM EST Resulting Agency Comment Spec In Lab Yonathan Smith MD HEMATOLOGY ORDERABLES Performing Organization Address City/State/[place] [address] (ABNORMAL) Hemogram (08/07/2017 7:30 AM EST) Analysis Performed At Patho logist Time Signature WBC 9.7 (H) 4.0 - 9.5 [facility] x[facility](3[facility] LABORATORY RBC 3.54 (L) 4.58 - [facility] 5.54 [facility] x10(6)/[facility] LABORATORY Hemoglobin 9.9 (L) 13.7 - [facility] 16.5 gm/dL [facility] LABORATORY Hematocrit 32.3 (L) 40.5 - [facility] 48.5 % [facility] LABORATORY MCV 91.2 82.9 - [facility] 93.1 [facility] LABORATORY MCH 28.0 27.5 - [facility] 32.1 pg [facility] LABORATORY MCHC 30.7 (L) 32.0 - [facility] 35.7 gm/dL [facility] LABORATORY Platelets 312 145 - 357 [facility] x10(3)/[facility] LABORATORY RDWSD 53.2 (H) 36.0 - [facility] 45.0 [facility] LABORATORY RDWCV 16.0 (H) 11.4 - [facility] R[facility] 13.8 % [facility] LABORATORY MPV 8.9 7.6 - 12.9 [facility] LABORATORY nRBC % Auto 0.0 % [facility] LABORATORY nRBC Abs Auto 0.000 0.000 - [facility] 0.000 [facility] x10(3)/[facility] LABORATORY Specimen Anatomical Collection Method Collection Time Receive d Time (Source) Location / / Volume Laterality Blood specimen 08/07/2017 7:30 AM 018 7:45 (specimen) EST AM EST Resulting Agency Comment Spec In Lab Yonathan Smith MD HEMATOLOGY ORDERABLES Performing Organization Address City/State/ZIP Code [place] [address] (ABNORMAL) Basic Metabolic Panel (non-fasting) (08/07/2017 7:30 AM EST) athologist Signature Glucose Lvl 80 65 - 199 [facility] mg/dL [facility] LABORATORY Comment: Diabetes: >=200 mg/dL plus symp toms BUN 31 (H) 10 - 20 mg/dL [facility] LABORATORY Creatinine 1.22 0.80 - 1.50 mg/dL [facility] [...] estions. Chloride 99 98 - 107 mmol/L [facility] LABORATORY CO2 29 22 - 31 mmol/L [facility] [...] or in patients with acute kidney failure. [email or web address] Specimen Anatomical Collection Method Collection Time Receive d Time (Source) Location / / Volume Laterality Blood specimen 08/07/2017 7:30 AM 018 7:45 (specimen) EST AM EST Resulting Agency Comment Spec In Lab Yonathan Smith MD CHEMISTRY ORDERABLES Performing Organization Address City/State/ZIP Code [place] [address] POCT Glucose (08/07/2017 7:27 AM EST) athologist Signature POC Glucose 81 65 - 199 [facility] mg/dL [facility] LABORATORY Comment: Supplemental ranges: <140 mg/dL before meals <180 mg/dL all other times of the day Specimen Anatomical Collection Method Collection Time Receive d Time (Source) Location / / Volume Laterality Blood specimen 08/07/2017 7:27 AM 018 7:27 (specimen) EST AM EST Yonathan Smith MD POINT OF CARE TEST ORDERABLE S Performing Organization Address City/[facility]/ZIP Code Phon e Number [address] APTT (08/07/2017 7:04 AM EST) athologist Signature PTT 34 25 - 35 sec [facility] LABORATORY Comment: The recommended therapeutic range for fu ll dose, unfractionated heparin at [facility] is 80 ? 114 seconds. The use [...] Smith MD HEMATOLOGY ORDERABLES Performing Organization Address City/[facility]/ZIP Code Phon e Number [address] (ABNORMAL) Prothrombin Time (08/07/2017 7:04 AM EST) athologist Signature PT 17.3 (H) 11.8 - 14.0 [facility] LABORATORY INR 1.4 (H) 0.9 - 1.1 [facility] [...] Address City/State/ZIP Code Phon e Number [address] POCT Glucose (08/07/2017 4:03 AM EST) athologist Signature POC Glucose 93 65 - 199 [facility] mg/dL [facility] [...] Address City/State/ZIP Code Phon e Number [address] POCT Glucose (08/07/2017 12:04 AM EST) athologist Signature POC Glucose 107 65 - 199 [place] mg/dL [facility] [...] Address City/State/ZIP Code Phon e Number [address] POCT Glucose (08/06/2017 7:56 PM EST) athologist Signature POC Glucose 178 65 - 199 [place] mg/dL [facility] [...] Organization Address City/State/ZIP Code [place] [address] TcPO2 (08/06/2017 2:32 PM EST) Component Value Ref Test Analysis Performed At [facility] Range Method Time Signature VB Text Department: Vascular Surgery Lab VASCUBASE Report Patient: [id number] (GREGORY HOANG) CPT: 1796469 ICD10: I99.8 Referring Physician: YONATHAN SMITH ?? [...] Henrique Marks RN) 0808 (Given - Provider: Cihquis Mcgrath RN)2024 (Given - Provider: Mira Truong, [...]
Routine documented in this encounter Care Teams Election Clerk Relationship Specialty Start Date End Date Lovely Vicente MD PCP - General 04/16/[address] [place] [address] documented as of this encounter
--- OUTSIDE RECORDS SUMMARY | 2022-02-23 08:55 | XMS_ITS | Encounter Summary ---
:1945 [place] [address] Care Team Providers Name Role Phone Lovely Vicente MD Primary Care Provider Encounter Details Date Type Department Care Team Description 08/09/2017 Clinical Support Same Day at [facility] Canceled (D-SCHED ERROR [facility] / CORRECT ION ) [place] [phone] Social History Tobacco Use Types Packs/Day [...] MD [facility] ER CARDIOLOGY [place], [place] 0[address] (Wo rk) documented as of this encounter Procedures Procedure Name Priority Date/Time Associated Diagnosis Comme nts ROOFING MACHINE TENDER 08/09/2017 12:00 AM Resul ts for this SCAN EST procedure are i n the results section. documented in this encounter Results SCAN DOC: ROOFING MACHINE TENDER (08/09/2017 12:00 AM EST) Narrative 08/09/2017 12:00 AM EST This result has an attachment that is no t available. Ordered by an unspecified provider. Scanning Provider MEDIA MGR SCAN EXT ORDR/RSLT documented in this encounter Visit Diagnoses Not on filedocumented in this encounter Care Teams Prune Washer Relationship Specialty Start Date End Date Lovely Vicente MD PCP - General 04/16/[address] [place] [address] documented as of this encounter
--- OUTSIDE RECORDS SUMMARY | 2022-02-23 08:55 | XMS_ITS | Encounter Summary ---
:1945 Author Organization [facility] [place] [address] Care Team Providers Name Role Phone Lovely Vicente MD Primary Care Provider Reason for Visit Auth/Cert Specialty Diagnoses / Procedures Referred By Contact Refer red To Contact Diagnoses Critical lower limb ischemia CELLULITIS RT FOOT Procedures EMERGENCY Referral ID Status Reason Start Date Expiration Date Visits Requ ested Visits Authorized [id number] 1 1 Encounter Details Date Type Department Care Team Description 08/09/2017 Surgery Main Operating Room Yonathan Smith AM PUTATION, Mary Hitchcock MD TRANSMETATARSAL (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 Patient [...] Dorsalis Pedis (Ankle) Artery ?132 ? 0.94 ??Vinton-Biphasic ? Posterior Tibial (Ankle) Artery ??154 ? 1.10 ??Vinton-Biphasic ? Fourth Toe ? 67 ?0.48 ?? [...] the foot. Discharge Conditions/Prognosis: Good Discharge to: [facility] Rehab Discharge Medications: Your Medications New Medications [...] For any problems or questions please call [phone] ZELDA Smith, financial analyst Nurse Clinician For issues on weeknights after 5pm and weekends please call [phone] and ask for the Vascular Fellow personnel worker. General Instructions None Future Appointments and Orders Future Appointments Provider Department Dept Phone 08/26/2017 4:00 PM Aurelia Rivera PA V[facility] Surgery [facility] [place] [phone] 09/07/2017 3:00 PM LAB, THREE L Lab 3L [facility] [phone] 09/07/2017 4:00 PM Luz Prescott MD Endocrinology at [place] [phone] 09/09/2017 8:00 AM Barbra Soares APRN Pain Management [facility] [place] [phone] Please bring a list of your current [...] For any problems or questions please call [phone] ZELDA Smith, financial analyst Nurse Clinician For issues on weeknights after 5pm and weekends please call [phone] and ask for the Vascular Fellow personnel worker. documented in this encounter Medications at [...] Management Discharge Note Patient Destination: [facility] [address] [id number] Transportation: with (at bedside) Time of Discharge: by 12 noon Level of Care: swing Patient Aware: yes Family Notified: yes Md to call report to: Yissel Quintero BEAM SEALER already called RN to call report to: [phone] Shirin Wolf Office of Care Management Pager [phone] Shirin Wolf RN - 08/16/2017 10:50 AM EST [facility] has offered pt swing bed. Pt and accept bed. will transport via car. BEAM SEALER Yissel Quintero aware; d/c paperwork will be completed by 12 noon. [facility] requests pt arrival by 1400 today; BEAM SEALER, RN, and family aware. BEAM SEALER called [facility] and was told that they prefer pt to arrive with wound vac dressing applied but clamped. BEAM SEALER applied new wound vac dressing. RN has [facility] number to call report. PASSR completed; BEAM SEALER paged to request provider signature in highlighted space. Indigo from [facility] notified via email that home wound vac now cancelled; [facility] has picked up from room and order cancelled. Packet started and provided to digital community manager. Medicare important message explained to patient, patient signed. Copy provided to patient and signature page to OCM for inclusion in pt EMR. L Radha Powers Yoselin - 08/16/2017 10:34 AM EST Office of Care Management/Area Manager Patient Name: Gregory Hoang : 1945 Patient has been offered a swing bed at [facility]. The patient will be transported by private transportation. No MD to MD report necessary Please call Nursing Report to [phone], ask for loan operations manager. Info to accompany patient: Narcotic Prescriptions Copies of Medication Administration Records and IV sheets for past 10 days. Plan: Area Manager will be available to the patient and Brim Stretcher-RN and/or Review Manager for further assistance. Patient will be discharged to: [place] [id number] Radha Powers, Area Manager Mira Truong, VAMSI - 08/15/2017 10:05 PM EST [address] Flores to ask if he wanted to hold metoprolol dose. BP 95/58. OK to hold this dose Courtney Brito - 08/15/2017 3:26 PM EST Office of Care Management(OCM)/Area Manager(RS)/ D/C Planning re : Patient is medically ready for d/c today. RS has been in contact with [facility] to see if they could offer a bed. [facility] is still reviewing the case and need their MD to review chart prior to accepting or declining. OCM team needs to check in with [facility] tomorrow to check on status. 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 Vac in place. [...] patient's referral to: [facility] PHONE: [phone] FAX: [phone] CM spoke with RS who said that [...] would be accepted to acute rehab at [facility] as Dr. Smith had recommended [...] rehab. Await recommendations from PT. Covering pager #[phone]. 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 Inspector Welded Parts Kaitlin Saha, RN Pager #[phone] Payam Rosales - 08/13/2017 2:37 PM EST Digital Community Manager Encounter Note Patient Name: Gregory Hoang : [id number] MR#: [id number] Admit Date: 08/06/2017 1:41 PM Hospital Day 7 days Narrative: Visited to introduce and assess acceptance of Digital Community Manager services. Pt was awake, alert, oriented and in chair and family was there. Assessment:Patient coping positively with stresses of illness/hospitalization at this time. Pt says that he is hoping to get better and his family was there. Pt says that he has family care and supportand taking one day at time. Intervention and Outcome: Provided emotional support and encouraging presence. 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 A letter describing our affiliations was reviewed with them and theywere educated about their right to choose where referrals are placed. Patient requests referral to [facility]. PHONE: [phone] FAX: [phone]. And Home NPWT (Negative Pressure Wound Therapy) aka wound vac device made available to pt. Serial # confirmed. Reviewed [facility] Proof of Delivery/Assignment of Benefits Statement(POD/AOB) Form w patient or authorized agent signing on behalf of patient. Copy of POD/AOB provided to pt and other copy faxed to [employer] @ fax# [phone] Expected date of discharge: 08/12/2017. 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 Address: [address] [place] [address] [place] [address] (home) Mobile: Telephone Information: Referring Provider: No [...] by Manny Mcknight MD at [facility] MAIN OR ??? PRO CABG, ARTERIAL, SINGLE N/A 07/07/2017 @CABG, USING ARTERIAL GRAFT;SINGLE ARTERIAL GRAFT (WRVU 33.75) performed by Yuan Retana MD at [facility] MAIN OR ??? PRO CABG, ARTERY-VEIN, TWO N/A 07/07/2017 @CABG, TWO VENOUS GRAFTS & ARTERIAL GRAFT (WRVU 7.93) performed by Yuan Retana MD at [facility] MAIN OR ??? PRO COLONOSCOPY, REMV LESN, SNARE 01/16/2014 COLONOSCOPY, POLYPECTOMY, REMOVAL LESION BY SNARE performed by Nohemi Jaimes MD at [facility] ENDOSCOPY ??? PRO ENDOSCOPY W/VIDEO-ASST VEIN HARVEST, CABG Right 07/07/2017 ENDOSCOPIC HARVEST VEIN(S) FOR CABG (WRVU 0.31) performed by Yuan Retana MD at [facility] MAIN OR ??? 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 Heparin gtt continues to run. [...] of : 1945 AGE 72 y.o. Address: [address] [place] [address] [place] [address] (home) Mobile: Telephone Information: Referring Provider: No [...] by Manny Mcknight MD at [facility] MAIN OR ??? PRO CABG, ARTERIAL, SINGLE N/A 07/07/2017 @CABG, USING ARTERIAL GRAFT;SINGLE ARTERIAL GRAFT (WRVU 33.75) performed by Yuan Retana MD at [facility] MAIN OR ??? PRO CABG, ARTERY-VEIN, TWO N/A 07/07/2017 @CABG, TWO VENOUS GRAFTS & ARTERIAL GRAFT (WRVU 7.93) performed by Yuan Retana MD at [facility] OR ??? PRO COLONOSCOPY, REMV LESN, SNARE 01/16/2014 COLONOSCOPY, POLYPECTOMY, REMOVAL LESION BY SNARE performed by Nohemi Jaimes MD at [facility] ENDOSCOPY ??? PRO ENDOSCOPY W/VIDEO-ASST VEIN HARVEST, CABG Right 07/07/2017 ENDOSCOPIC HARVEST VEIN(S) FOR CABG (WRVU 0.31) performed by Yuan Retana MD at [facility] MAIN OR ??? 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 Vascular resident personnel worker and will forward result to the team prior to rounds. 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 Patient [...] by Manny Mcknight MD at [facility] MAIN OR ??? PRO CABG, ARTERIAL, SINGLE N/A 07/07/2017 @CABG, USING ARTERIAL GRAFT;SINGLE ARTERIAL GRAFT (WRVU 33.75) performed by Yuan Retana MD at [facility] MAIN OR ??? PRO CABG, ARTERY-VEIN, TWO N/A 07/07/2017 @CABG, TWO VENOUS GRAFTS & ARTERIAL GRAFT (WRVU 7.93) performed by Yuan Retana MD at [facility] MAIN OR ??? PRO COLONOSCOPY, REMV LESN, SNARE 01/16/2014 COLONOSCOPY, POLYPECTOMY, REMOVAL LESION BY SNARE performed by Nohemi Jaimes MD at [facility] ENDOSCOPY ??? PRO ENDOSCOPY W/VIDEO-ASST VEIN HARVEST, CABG Right 07/07/2017 ENDOSCOPIC HARVEST VEIN(S) FOR CABG (WRVU 0.31) performed by Yuan Retana MD at [facility] MAIN OR ??? PRO THYROIDECTOMY 03/28/2013 THYROIDECTOMY, TOTAL OR COMPLETE performed by Manny Mcknight MD at [facility] MAIN OR Functional Status/Social Hx: Quit [...] left blue toes with CTA showing R LIME SPREADER pseudoaneurysm (now thrombosed) and occluded ATs bilaterally. [...] 2.5x80 5. Completion RLE angiogram 6. L LIME SPREADER angiogram 7. 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 - L LIME SPREADER angriogram demonstrated: High femoral bifurcation over the proximal half of the femoral head. L LIME SPREADER access in the distal L LIME SPREADER. - Closure device: Mynx Technical Procedure: The [...] for a 45cm 5F Destination. V18 and [place] and QuickCross catheters were used to select [...] 5F. A stationed picture of the L LIME SPREADER was performed as the patient was noted to have a very high bifurcation. Access appeared in the distal R LIME SPREADER. Closure and sheath removal was performed with [...] PM EST 1440 report called to 5 reading nurse Tessa RN documented in this encounter [...] with pt and pt's spouse. Discharge to [facility]. Goal: Individualization & Mutuality Outcome: Outcome (s) [...] sit/sit to supine -- Bed Mobility Goal, [place] Level independent -- Bed Mobility Goal, Date [...] days -- Transfer Training Goal, Activity Type neo-qp-prnhp/nughp-xw-lhs -- Transfer Train Goal, [place] Level conditional independence -- Transfer Train Goal, [...] call cabello within reach, Hourly rounding by RN/COMPUTER METEOROLOGIST. Bed alarm / Chair alarm. Patient-specific fall [...] Smith MD - 08/15/2017 6:28 PM EST [facility] Operative Note Patient Name: Gregory Hoang : [id number] MR#: [id number] Case Date: 08/09/2017 Surgeon: Surgeon(s) and Role: [...] 2.5x80 5. Completion RLE angiogram 6. L LIME SPREADER angiogram 7. Mynx closure Precautions/Restrictions: fall, sternal [...] other (see comments) (or swing bed) Pager: [phone] BASSAM ELIAS, PT 08/14/2017 Inpatient Physical Therapy [...] to Achieve by discharge Gait Training Goal, [place] Level conditional independence;set up required Gait Training [...] these facilities over the weekend except for [facility]. CM spoke with [facility] CM Drea Sandhu, VAMSI who said that they do not anticipate any beds over the weekend. Reviewed with patient/ that they need to be aware that patient will need to take the first bed offered at the facilities that they make referrals to. Their choices are: 1- [facility] PHONE: [phone] FAX: [phone] 2- [facility] ([facility]) [address] [place] [address] 3- [facility]) [address] [place] [address] I have discussed Medicare/Private Insurance [...] RS/CM on Wednesday to follow-up. Covering pager #[phone] for today. Plan of Care - Henrique [...] with additional findings of pseudoaneurysm on R LIME SPREADER and bilateral anterior tibial artery occlusions. Was [...] an outpatient once discharged. Have patient call [phone] to set up an appointment. Follow-up: Dermatology will sign-off for now. Please do not hesitate to contact us if you have any questions orconcerns. Impression and Recommendations discussed with primary team on 08/13/2017. Karo Henderson MD Resident in Dermatology Section of Dermatology, Department of Surgery [facility] Pager [phone] Patient seen and evaluated with staff Ocean Freight Manager: Halima Cordero MD Section of Dermatology [facility] Level of Resident Supervision: Direct Supervision [...] Outcome: Ongoing (Interventions Implemented as Appropriate) 08/12/17 4566 Coping/Psychosocial Plan Of Care Reviewed With patient;spouse [...] 2.5x80 5. Completion RLE angiogram 6. L LIME SPREADER angiogram 7. Mynx closure Active Non-Hospital Problems [...] home with home health ([facility] PT&OT) Pager: [phone] YASIR TELLO OT 08/12/2017 Occupational Therapy Rehabilitation [...] 2.5x80 5. Completion RLE angiogram 6. L LIME SPREADER angiogram 7. Mynx closure Past Medical History: [...] with 24/7 assistance and maximal services) Pager: [phone] NICHOLAS MORA, PT 08/12/2017 Physical Therapy Rehabilitation [...] sit/sit to supine -- Bed Mobility Goal, [place] Level independent -- Bed Mobility Goal, Outcome Achieved -- goal ongoing Goal: Gait Training Goal Stand Alone Therapy Goal Outcome: Ongoing (Interventions Implemented as Appropriate) 08/11/17 1310 08/12/17 1510 Gait Training Goal Gait Training Goal, Date Established 08/11/17 -- Gait Training Goal, Time to Achieve 5 - 7 days -- Gait Training Goal, [place] Level conditional independence -- Gait Training Goal, [...] days -- Transfer Training Goal, Activity Type ixq-dk-uppnz/jjdjb-fn-jqh -- Transfer Train Goal, [place] Level conditional independence -- Transfer Training Goal, [...] Smith MD - 08/11/2017 2:52 PM EST [facility] Operative Note Patient Name: Gregory Hoang : [id number] MR#: [id number] Case Date: 08/11/2017 Surgeon: Surgeon(s) and Role: [...] 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 Completion RLE angiogram 6. L LIME SPREADER angiogram 7. Mynx closure He is very [...] Anticipated Discharge Disposition: inpatient rehabilitation facility Pager: [phone] LAWRENCE GONZALEZ, PT 08/11/2017 Physical Therapy Rehabilitation [...] to sit/sit to supine Bed Mobility Goal, [place] Level independent Goal: Gait Training Goal Stand Alone Therapy Goal Outcome: Ongoing (Interventions Implemented as Appropriate) 08/11/17 1310 Gait Training Goal Gait Training Goal, Date Established 08/11/17 Gait Training Goal, Time to Achieve 5 - 7 days Gait Training Goal, [place] Level conditional independence Gait Training Goal, Assist [...] 7 days Transfer Training Goal, Activity Type qnu-ym-lxkxr/omzpx-eh-uvo Transfer Train Goal, [place] Level conditional independence Plan of David DelloAnnetta [...] Keeping RLE elevated on pillows, wrapped in KIRSITN bandage and gauze. Sugars being treated withinsulin [...] call cabello within reach, Hourly rounding by RN/COMPUTER METEOROLOGIST. Bed alarm / Chair alarm. ? Patient-specific fall prevention interventions for sensory deficits provided, if applicable: [X] Yes CPG GOAL OUTCOME EVALUATION: Initial Assessments - Kaitlin Saha RN - 08/09/2017 11:43 AM EST Office of Care Management Initial Assessment Kaitlin Shaa RN reviewed record and discussed patient with [...] 04/05/2013 Hospitalizations Within the Past 30 Days: [facility] 07/20/2017 Anticipated Length Of Stay (If known): Expected Length of Hospitalization: 5-7 days2-3 days Current Decision-Making Capacity: Alert and oriented x 4 Advance Care Planning: on file Kisha Hoang [facility] [phone] Current Coping/Education/Information Needs: pt and spouse state [...] Health/Prescription Coverage: Primary Insurance: MEDICARE Secondary Insurance: [place] Prescription Coverage: See above Preferred Pharmacy: [facility] Other: N/A Primary Care Provider: Lovely Vicente MD [phone] Patient/Caregiver Goals of Treatment: Patient plans to return home when medically ready Potential Needs for Transition of Care: Rehab/SNF: N/A Home Health: [facility]. DME: pt has a cane [...] of care planning. Kaitlin Saha RN Pager: [phone] Plan of Care - Melba Jaramillo RN [...] Overview Goal: Plan of Care Review 08/08/17 2104 Coping/Psychosocial Plan Of Care Reviewed With patient [...] call cabello within reach, Hourly rounding by RN/COMPUTER METEOROLOGIST. Bed alarm / Chair alarm. Patient-specific fall prevention interventions for sensory deficits provided, if applicable: [X] Yes CPG GOAL OUTCOME EVALUATION: Goal: Fall Prevention-Safe Patient Handling Outcome: Ongoing (Interventions Implemented as Appropriate) 08/06/17 1700 08/06/17199908/07/17 2554 Positioning Body Position -- up in chair [...] at bedside and MD TEAM Carrying pager [phone] contacted (via Radio page) and notified of [...] [facility] ER DR CARDIOLOGY [place], [place] 0375 (Wo rk) documented as of [...] section. TYPE AND SCREEN Routine 08/09/2017 1:10 ([facility]/CGP/SHANDA) AM EST BASIC METABOLIC PANEL Routine 08/09/2017 [...] Signature POC Glucose 160 65 - 199 [facility] mg/dL [facility] Comment: Supplemental ranges: <140 mg/dL before meals <180 mg/dL all other times of the day Specimen Anatomical Collection Method Collection Time Receive d Time (Source) Location / / Volume Laterality Blood specimen 08/16/2017 7:28 AM 018 7:28 (specimen) EST AM EST Yonathan Smith MD POINT OF CARE TEST ORDERABLE S Performing Organization Address City/State/[place] [address] (ABNORMAL) Differential, Automated (08/16/2017 5:08 AM EST) Patholo gist Method Time Signature Neutrophils % 73.9 % [facility] Neutr Abs (ANC) 5.37 1.70 - [facility] 6.10 [facility] x10(3)/[facility] LABORATORY Lymphocytes % 10.1 % [facility] Lymphocytes Abs 0.7 (L) 0.9 - 3.2 [facility] x10(3)/[facility] LABORATORY Monocytes % 10.1 % [facility] Monocyte Abs 0.7 0.3 - 0.9 [facility] x10(3)/[facility] LABORATORY Eosinophils % 5.1 % [facility] Eosinophils Abs 0.4 0.0 - 0.4 [facility] x10(3)/[facility] LABORATORY Basophils % 0.4 % [facility] Basophils Abs 0.0 0.0 - 0.1 [facility] x10(3)/[facility] LABORATORY Immature Gran % 0.40 % [...] 0.00 - 0.04 x10(3)/[facility] MAR Y [facility] Specimen Anatomical Collection Method Collection Time Receive d Time (Source) Location / / Volume Laterality Blood specimen 08/16/2017 5:08 AM 018 5:20 (specimen) EST AM EST Resulting Agency Comment Spec In Lab Yonathan Smith MD HEMATOLOGY ORDERABLES Performing Organization Address City/State/ZIP Code Phon e Number [place] [id number] (ABNORMAL) Hemogram (08/16/2017 5:08 AM EST) Analysis Performed At Patho logist Time Signature WBC 7.3 4.0 - 9.5 [facility] x10(3)/[facility] LABORATORY RBC 3.36 (L) 4.58 - [facility] 5.54 [facility] x10(6)/[facility] LABORATORY Hemoglobin 9.7 (L) 13.7 - [facility] 16.5 gm/dL [facility] Hematocrit 30.3 (L) 40.5 - [facility] 48.5 % [facility] MCV 90.2 82.9 - [facility] 93.1 fL [facility] MCH 28.9 27.5 - [facility] 32.1 pg [facility] MCHC 32.0 32.0 - [place] 35.7 gm/dL [facility] Platelets 282 145 - 357 [facility](3[facility] LABORATORY RDWSD 53.9 (H) 36.0 - [place] 45.0 [facility] LABORATORY RDWCV 16.5 (H) 11.4 - [place] 13.8 % [facility] MPV 9.0 7.6 - 12.9 [facility] LABORATORY nRBC % Auto 0.0 % [facility] nRBC Abs Auto 0.000 0.000 - [place] 0.000 [facility] x10(3)/[facility] LABORATORY Specimen Anatomical Collection Method Collection Time Receive d Time (Source) Location / / Volume Laterality Blood specimen 08/16/2017 5:08 AM 018 5:20 (specimen) EST AM EST Resulting Agency Comment Spec In Lab Yonathan Smith MD HEMATOLOGY ORDERABLES Performing Organization Address City/State/[place] [address] HOSPITAL LABORATORY Drive (ABNORMAL) Basic Metabolic Panel (non-fasting) (08/16/2017 5:08 AM EST) P athologist Signature Glucose Lvl 141 65 - 199 [facility] mg/dL [facility] Comment: Diabetes: >=200 mg/dL plus symp toms BUN 29 (H) 10 - 20 mg/dL [facility] Creatinine 1.25 0.80 - 1.50 mg/dL [facility] Sodium 140 135 - 145 mmol/L [facility] Potassium 4.5 3.5 - 5.0 mmol/L [facility] LABORATORY Calcium 8.7 8.5 - 10.5 mg/dL [facility] Estimated GFR 57 (L) >=60 [facility] Comment: The reported eGFR should be multiplied b y 1.2 for patients. The MDRD is not an appropriate measure o f renal function for patients with body mass extremes or in patients with acute kidney failure. http://Buzzvil/DHnkdep http://Buzzvil/DHMCnkf Specimen Anatomical Collection Method Collection Time Receive d Time (Source) Location / / Volume Laterality Blood specimen 08/16/2017 5:08 AM 018 5:20 (specimen) EST AM EST Resulting Agency Comment Spec In Lab Yonathan Smith MD CHEMISTRY ORDERABLES Performing Organization Address [facility] [place] [address] (ABNORMAL) Prothrombin Time (08/16/2017 5:08 AM EST) P athologist Signature PT 25.2 (H) 11.8 - 14.0 [facility] LABORATORY INR 2.3 (H) [...] Smith MD HEMATOLOGY ORDERABLES Performing Organization Address [facility] [place] [address] POCT Glucose (08/16/2017 4:09 AM EST) athologist Signature POC Glucose 147 65 - 199 [facility] mg/dL [facility] Comment: Supplemental ranges: <140 mg/dL before meals <180 mg/dL all other times of the day Specimen Anatomical Collection Method Collection Time Receive d Time (Source) Location / / Volume Laterality Blood specimen 08/16/2017 4:09 AM 018 4:09 (specimen) EST AM EST Yonathan Smith MD POINT OF CARE TEST ORDERABLE S Performing Organization Address City/State/[place] [address] POCT Glucose (08/15/2017 11:56 PM EST) athologist Signature POC Glucose 176 65 - 199 [facility] mg/dL [facility] Comment: Supplemental ranges: <140 mg/dL before meals <180 mg/dL all other times of the day Specimen Anatomical Collection Method Collection Time Receive d Time (Source) Location / / Volume Laterality Blood specimen 08/15/2017 11:56 8 (specimen) PM EST 11:56 PM EST Yonathan Smith MD POINT OF CARE TEST ORDERABLE S Performing Organization Address City/State/[place] [address] POCT Glucose (08/15/2017 8:05 PM EST) athologist Signature POC Glucose 136 65 - 199 [place] mg/dL [facility] Comment: Supplemental ranges: <140 mg/dL before meals <180 mg/dL all other times of the day Specimen Anatomical Collection Method Collection Time Receive d Time (Source) Location / / Volume Laterality Blood specimen 08/15/2017 8:05 PM 018 8:05 (specimen) EST PM EST Yonathan Smith MD POINT OF CARE TEST ORDERABLE S Performing Organization Address City/State/ZIP Code Phon e Number [address] (ABNORMAL) POCT Glucose (08/15/2017 4:50 PM EST) athologist Signature POC Glucose 232 (H) 65 - 199 [place] mg/dL [facility] Comment: Supplemental ranges: <140 mg/dL before meals <180 mg/dL all other times of the day Specimen Anatomical Collection Method Collection Time Receive d Time (Source) Location / / Volume Laterality Blood specimen 08/15/2017 4:50 PM 018 4:50 (specimen) EST PM EST Yonathan Smith MD POINT OF CARE TEST ORDERABLE S Performing Organization Address City/State/ZIP Code Phon e Number [address] POCT Glucose (08/15/2017 12:04 PM EST) athologist Signature POC Glucose 135 65 - 199 [facility] Comment: Supplemental ranges: <140 mg/dL before meals <180 mg/dL all other times of the day Specimen Anatomical Collection Method Collection Time Receive d Time (Source) Location / / Volume Laterality Blood specimen 08/15/2017 12:04 8 (specimen) PM EST 12:04 PM EST Yonathan Smith MD POINT OF CARE TEST ORDERABLE S Performing Organization Address City/[facility]/ZIP Code Phon e Number [address] POCT Glucose (08/15/2017 7:36 AM EST) athologist Signature POC Glucose 124 65 - 199 [facility] Comment: Supplemental ranges: <140 mg/dL before meals <180 mg/dL all other times of the day Specimen Anatomical Collection Method Collection Time Receive d Time (Source) Location / / Volume Laterality Blood specimen 08/15/2017 7:36 AM 018 7:36 (specimen) EST AM EST Yonathan Smith MD POINT OF CARE TEST ORDERABLE S Performing Organization Address City/[facility]/ZIP Code Phon e Number [address] (ABNORMAL) Differential, Automated (08/15/2017 6:22 AM EST) [facility] gist Method Time Signature Neutrophils % 76.1 % [facility] Neutr Abs (ANC) 6.62 (H) 1.70 - [facility] 6.10 [facility] x10(3)/[facility] L LABORATORY Lymphocytes % 9.3 % [facility] Lymphocytes Abs 0.8 (L) 0.9 - 3.2 [facility] x10(3)/[facility] LABORATORY Monocytes % 9.4 % [facility] Monocyte Abs 0.8 0.3 - 0.9 [facility] x10(3)/[facility] LABORATORY Eosinophils % 4.0 % [facility] Eosinophils Abs 0.4 0.0 - 0.4 [facility] x10(3)/[facility] LABORATORY Basophils % 0.6 % [facility] Basophils Abs 0.0 0.0 - 0.1 [place] 105480(3)/[facility] LABORATORY Immature Gran % 0.60 [...] Gran Abs 0.05 (H) 0.00 - 0.04 x10(3)/[facility] LABORATORY Specimen Anatomical Collection Method Collection Time Receive d Time (Source) Location / / Volume Laterality Blood specimen 08/15/2017 6:22 AM 018 6:33 (specimen) EST AM EST Resulting Agency Comment Spec In Lab Yonathan Smith MD HEMATOLOGY ORDERABLES Performing Organization Address City/State/[place] [address] (ABNORMAL) Hemogram (08/15/2017 6:22 AM EST) Analysis Performed At Patho logist Time Signature WBC 8.7 4.0 - 9.5 [facility] x10(3)/[facility] LABORATORY RBC 3.21 (L) 4.58 - [facility] 5.54 [facility] x10(6)/[facility] LABORATORY Hemoglobin 9.1 (L) 13.7 - [place] 16.5 gm/dL [facility] Hematocrit 29.0 (L) 40.5 - [facility] 48.5 % [facility] MCV 90.3 82.9 - [facility] 93.1 [facility] LABORATORY MCH 28.3 27.5 - [facility] 32.1 pg [facility] MCHC 31.4 (L) 32.0 - [facility] 35.7 gm/dL [facility] Platelets 254 145 - 357 [facility] x10(3)/[facility] LABORATORY RDWSD 53.9 (H) 36.0 - [facility] 45.0 [facility] LABORATORY RDWCV 16.3 (H) 11.4 - [facility] 13.8 % [facility] MPV 8.8 7.6 - 12.9 [facility] LABORATORY nRBC % Auto 0.0 % [facility] nRBC Abs Auto 0.000 0.000 - [facility] 0.000 [facility] x10(3)/[facility] LABORATORY Specimen Anatomical Collection Method Collection Time Receive d Time (Source) Location / / Volume Laterality Blood specimen 08/15/2017 6:22 AM 018 6:33 (specimen) EST AM EST Resulting Agency Comment Spec In Lab Yonathan Smith MD HEMATOLOGY ORDERABLES Performing Organization Address City/State/[place] [address] (ABNORMAL) Basic Metabolic Panel (non-fasting) (08/15/2017 6:22 AM EST) athologist Signature Glucose Lvl 118 65 - 199 [facility] mg/dL [facility] Comment: Diabetes: >=200 mg/dL plus symp toms BUN 27 (H) 10 - 20 mg/dL [facility] Creatinine 1.12 0.80 - 1.50 mg/dL [facility] Sodium 138 135 - [...] LABORATORY Calcium 8.8 8.5 - 10.5 mg/dL [facility] Estimated GFR >60 >=60 [facility] Comment: The reported eGFR should be multiplied b y 1.2 for patients. The MDRD is not an appropriate measure o f renal function for patients with body mass extremes or in patients with acute kidney failure. http://Buzzvil/DHnkdep http://Buzzvil/DHMCnkf Specimen Anatomical Collection Method Collection Time Receive d Time (Source) Location / / Volume Laterality Blood specimen 08/15/2017 6:22 AM 018 6:33 (specimen) EST AM EST Resulting Agency Comment Spec In Lab Yonathan Smith MD CHEMISTRY ORDERABLES Performing Organization Address City/State/ZIP Code Phon e Number [place] [phone] LAB[address]ORY [address] (ABNORMAL) Prothrombin Time (08/15/2017 6:22 AM EST) athologist Signature PT 21.9 (H) 11.8 - 14.0 [facility] LABORATORY INR 1.9 (H) [...] Smith MD HEMATOLOGY ORDERABLES Performing Organization Address City/[facility]/ZIP Code Phon e Number [address] POCT Glucose (08/15/2017 4:33 AM EST) athologist Signature POC Glucose 164 65 - 199 [place] mg/dL [facility] Comment: Supplemental ranges: <140 mg/dL before meals <180 mg/dL all other times of the day Specimen Anatomical Collection Method Collection Time Receive d Time (Source) Location / / Volume Laterality Blood specimen 08/15/2017 4:33 AM 018 4:33 (specimen) EST AM EST Yonathan Smith MD POINT OF CARE TEST ORDERABLE S Performing Organization Address City/[facility]/ZIP Code Phon e Number [address] POCT Glucose (08/15/2017 12:12 AM EST) athologist Signature POC Glucose 89 65 - 199 [place] mg/dL [facility] Comment: Supplemental ranges: <140 mg/dL before meals <180 mg/dL all other times of the day Specimen Anatomical Collection Method Collection Time Receive d Time (Source) Location / / Volume Laterality Blood specimen 08/15/2017 12:12 8 (specimen) AM EST 12:12 AM EST Yonathan Smith MD POINT OF CARE TEST ORDERABLE S Performing Organization Address City/[facility]/ZIP Code Phon e Number [address] (ABNORMAL) POCT Glucose (08/14/2017 8:07 PM EST) athologist Signature POC Glucose 204 (H) 65 - 199 [facility] mg/dL [facility] Comment: Supplemental ranges: <140 mg/dL before meals <180 mg/dL all other times of the day Specimen Anatomical Collection Method Collection Time Receive d Time (Source) Location / / Volume Laterality Blood specimen 08/14/2017 8:07 PM 018 8:07 (specimen) EST PM EST Yonathan Smith MD POINT OF CARE TEST ORDERABLE S Performing Organization Address City/State/ZIP Code Phon e Number [address] POCT Glucose (08/14/2017 5:11 PM EST) athologist Signature POC Glucose 174 65 - 199 [facility] mg/dL [facility] Comment: Supplemental ranges: <140 mg/dL before meals <180 mg/dL all other times of the day Specimen Anatomical Collection Method Collection Time Receive d Time (Source) Location / / Volume Laterality Blood specimen 08/14/2017 5:11 PM 018 5:11 (specimen) EST PM EST Yonathan Smith MD POINT OF CARE TEST ORDERABLE S Performing Organization Address City/[facility]/ZIP Code Phon e Number [address] POCT Glucose (08/14/2017 12:10 PM EST) athologist Signature POC Glucose 141 65 - 199 [facility] mg/dL [facility] Comment: Supplemental ranges: <140 mg/dL before meals <180 mg/dL all other times of the day Specimen Anatomical Collection Method Collection Time Receive d Time (Source) Location / / Volume Laterality Blood specimen 08/14/2017 12:10 8 (specimen) PM EST 12:10 PM EST Yonathan Smith MD POINT OF CARE TEST ORDERABLE S Performing Organization Address City/State/[place] [address] POCT Glucose (08/14/2017 8:07 AM EST) athologist Signature POC Glucose 158 65 - 199 [facility] mg/dL [facility] Comment: Supplemental ranges: <140 mg/dL before meals <180 mg/dL all other times of the day Specimen Anatomical Collection Method Collection Time Receive d Time (Source) Location / / Volume Laterality Blood specimen 08/14/2017 8:07 AM 018 8:07 (specimen) EST AM EST Yonathan Smith MD POINT OF CARE TEST ORDERABLE S Performing Organization Address City/State/ZIP Code Phon e Number [place] [phone] [facility] LABOR[address]ORY Drive (ABNORMAL) Differential, Automated (08/14/2017 4:52 AM EST) [facility] Method Time Signature Neutrophils % 78.6 % [facility] Neutr Abs (ANC) 7.70 (H) 1.70 - [facility] 6.10 [facility] x10(3)/[facility] L LABORATORY Lymphocytes % 7.8 % [facility] Lymphocytes Abs 0.8 (L) 0.9 - 3.2 [facility] x10(3)/[facility] LABORATORY Monocytes % 8.8 % [facility] Monocyte Abs 0.9 0.3 - 0.9 [facility] x10(3)/[facility] LABORATORY Eosinophils % 4.0 % [facility] Eosinophils Abs 0.4 0.0 - 0.4 [facility] x10(3)/[facility] LABORATORY Basophils % 0.5 % [facility] Basophils Abs 0.0 0.0 - 0.1 [facility] x10(3)/[facility] LABORATORY Immature Gran % 0.30 % [facility] [...] 0.00 - 0.04 x10(3)/mcL MAR Y [facility] LABORATORY Specimen Anatomical Collection Method Collection Time Receive d Time (Source) Location / / Volume Laterality Blood specimen 08/14/2017 4:52 AM 018 5:08 (specimen) EST AM EST Resulting Agency Comment Spec In Lab Yonathan Smith MD HEMATOLOGY ORDERABLES Performing Organization Address City/State/[place] [address] (ABNORMAL) Hemogram (08/14/2017 4:52 AM EST) Analysis Performed At Patho logist Time Signature WBC 9.8 (H) 4.0 - 9.5 [facility] x10(3)/[facility] LABORATORY RBC 3.32 (L) 4.58 - [facility] 5.54 [facility] x10(6)/[facility] LABORATORY Hemoglobin 9.5 (L) 13.7 - [facility] 16.5 gm/dL [facility] Hematocrit 30.3 (L) 40.5 - [facility] 48.5 % [facility] MCV 91.3 82.9 - [facility] 93.1 [facility] LABORATORY MCH 28.6 27.5 - [facility] 32.1 pg [facility] MCHC 31.4 (L) 32.0 - [facility] 35.7 gm/dL [facility]ORY Platelets 263 145 - 357 [facility] x10(3)/[facility] LABORATORY RDWSD 54.8 (H) 36.0 - [facility] 45.0 [facility] LABORATORY RDWCV 16.5 (H) 11.4 - [facility] 13.8 % [facility] LABORATORY MPV 9.1 7.6 - 12.9 [facility] LABORATORY nRBC % Auto 0.0 % [facility]OR[facility]ORY nRBC Abs Auto 0.000 0.000 - [facility] 0.000 [facility] x10(3)/[facility] LABORATORY Specimen Anatomical Collection Method Collection Time Receive d Time (Source) Location / / Volume Laterality Blood specimen 08/14/2017 4:52 AM 018 5:08 (specimen) EST AM EST Resulting Agency Comment Spec In Lab Yonathan Smith MD HEMATOLOGY ORDERABLES Performing Organization Address City/State/[place] [address] (ABNORMAL) Prothrombin Time (08/14/2017 4:52 AM EST) P athologist Signature PT 18.8 (H) 11.8 - 14.0 [facility] LABORATORY INR 1.6 (H) [...] City/State/ZIP Code Phon e Number [place] [phone]OS[address] (ABNORMAL) Basic Metabolic Panel (non-fasting) (08/14/2017 4:52 AM EST) athologist Signature Glucose Lvl 135 65 - 199 [facility] mg/dL [facility] Comment: Diabetes: >=200 mg/dL plus symp toms BUN 25 (H) 10 - 20 mg/dL [facility] Creatinine 1.36 0.80 - 1.50 mg/dL [facility] Sodium 141 135 - 145 mmol/L [facility] [...] mg/dL [facility] Estimated GFR 52 (L) >=60 [facility] Comment: The reported eGFR should be multiplied b y 1.2 for patients. The MDRD is not an appropriate measure o f renal function for patients with body mass extremes or in patients with acute kidney failure. http://Buzzvil/DHnkdep http://Buzzvil/DHMCnkf Specimen Anatomical Collection Method Collection Time Receive d Time (Source) Location / / Volume Laterality Blood specimen 08/14/2017 4:52 AM 018 5:08 (specimen) EST AM EST Resulting Agency Comment Spec In Lab Yonathan Smith MD CHEMISTRY ORDERABLES Performing Organization Address City/[facility]/[place]IP [facility] [address] POCT Glucose (08/14/2017 3:56 AM EST) athologist Signature POC Glucose 135 65 - 199 [facility] Comment: Supplemental ranges: <140 mg/dL before meals <180 mg/dL all other times of the day Specimen Anatomical Collection Method Collection Time Receive d Time (Source) Location / / Volume Laterality Blood specimen 08/14/2017 3:56 AM 018 3:56 (specimen) EST AM EST Yonathan Smith MD POINT OF CARE TEST ORDERABLE S Performing Organization Address City/[facility]/ZIP Code Phon e Number [address] POCT Glucose (08/13/2017 11:13 PM EST) athologist Signature POC Glucose 118 65 - 199 [facility] Comment: Supplemental ranges: <140 mg/dL before meals <180 mg/dL all other times of the day Specimen Anatomical Collection Method Collection Time Receive d Time (Source) Location / / Volume Laterality Blood specimen 08/13/2017 11:13 8 (specimen) PM EST 11:13 PM EST Yonathan Smith MD POINT OF CARE TEST ORDERABLE S Performing Organization Address City/[facility]/[place] [address] (ABNORMAL) POCT Glucose (08/13/2017 8:08 PM EST) athologist Signature POC Glucose 204 (H) 65 - 199 [facility] mg/dL [facility] Comment: Supplemental ranges: <140 mg/dL before meals <180 mg/dL all other times of the day Specimen Anatomical Collection Method Collection Time Receive d Time (Source) Location / / Volume Laterality Blood specimen 08/13/2017 8:08 PM 018 8:08 (specimen) EST PM EST Yonathan Smith MD POINT OF CARE TEST ORDERABLE S Performing Organization Address City/State/[place] [address] POCT Glucose (08/13/2017 4:02 PM EST) athologist Signature POC Glucose 145 65 - 199 [facility]dL [facility] Comment: Supplemental ranges: <140 mg/dL before meals <180 mg/dL all other times of the day Specimen Anatomical Collection Method Collection Time Receive d Time (Source) Location / / Volume Laterality Blood specimen 08/13/2017 4:02 PM 018 4:02 (specimen) EST PM EST Yonathan Smith MD POINT OF CARE TEST ORDERABLE S Performing Organization Address City/State/[place] [address] POCT Glucose (08/13/2017 11:31 AM EST) athologist Signature POC Glucose 179 65 - 199 [place] mg/dL [facility] Comment: Supplemental ranges: <140 mg/dL before meals <180 mg/dL all other times of the day Specimen Anatomical Collection Method Collection Time Receive d Time (Source) Location / / Volume Laterality Blood specimen 08/13/2017 11:31 8 (specimen) AM EST 11:31 AM EST Yonathan Smith MD POINT OF CARE TEST ORDERABLE S Performing Organization Address City/State/[place] [address] (ABNORMAL) POCT Glucose (08/13/2017 10:16 AM EST) P athologist Signature POC Glucose 211 (H) 65 - 199 [facility] mg/dL [facility] Comment: Supplemental ranges: <140 mg/dL before meals <180 mg/dL all other times of the day Specimen Anatomical Collection Method Collection Time Receive d Time (Source) Location / / Volume Laterality Blood specimen 08/13/2017 10:16 8 (specimen) AM EST 10:16 AM EST Yonathan Smith MD POINT OF CARE TEST ORDERABLE S Performing Organization Address City/State/[place] [address] JULIAN, legs, multiple levels (08/13/2017 7:42 AM EST) Component Value Ref Test Analysis Performed At Patholo gist Range Method Time Signature VB Text Department: Vascular Surgery Lab VASCUBASE Report Patient: [id number] (GREGORY HOANG) CPT: 98764 ICD10: I99.8 Referring Physician: YONATHAN SMITH ?? Indications: s/p R 1,2,3 toe amps with red left foot, need n ew baseline Diabetes mellitus: yes ICD10 Diagnosis Code: I99.8 Findings: Right ?Pressure (mm Hg) ?? JULIAN ??Waveform ?TBI ?? Brachial Artery ?138 ? Dorsalis Pedis (Ankle) Arter y ?132 ? 0.94 ??[place]inton- Biphasic ? Posterior Tibial (Ankle) Art anila ??154 ? 1.10 ??[place]inton-Biphasic ? Fourth Toe ? 67 ? 0.48 [...] Signature POC Glucose 156 65 - 199 [facility] mg/dL [facility]ORY Comment: Supplemental ranges: <140 mg/dL before meals <180 mg/dL all other times of the day Specimen Anatomical Collection Method Collection Time Receive d Time (Source) Location / / Volume Laterality Blood specimen 08/13/2017 7:33 AM 018 7:33 (specimen) EST AM EST Yonathan Smith MD POINT OF CARE TEST ORDERABLE S Performing Organization Address City/State/[place] [address] (ABNORMAL) Differential, Automated (08/13/2017 5:33 AM EST) Patholo gist Method Time Signature Neutrophils % 77.8 % [facility]OR[facility]ORY Neutr Abs (ANC) 7.83 (H) 1.70 - [facility] 6.10 [facility] x10(3)/[facility] L LABORATORY Lymphocytes % 8.4 % [facility]OR[facility]ORY Lymphocytes Abs 0.8 (L) 0.9 - 3.2 [facility] x10(3)/[facility] LABORATORY Monocytes % 8.3 % [facility]OR[facility]ORY Monocyte Abs 0.8 0.3 - 0.9 [facility] x10(3)/[facility] LABORATORY Eosinophils % 4.6 % [facility] Eosinophils Abs 0.5 (H) 0.0 - 0.4 [facility] x10(3)/[facility] LABORATORY Basophils % 0.5 % [facility]ORY Basophils Abs 0.0 0.0 - 0.1 [facility] x10(3)/[facility] LABORATORY Immature Gran % 0.40 [...] 0.00 - 0.04 x10(3)/[facility] MAR Y [facility] LABORATORY Specimen Anatomical Collection Method Collection Time Receive d Time (Source) Location / / Volume Laterality Blood specimen 08/13/2017 5:33 AM 018 6:04 (specimen) EST AM EST Resulting Agency Comment Spec In Lab Yonathan Smith MD HEMATOLOGY ORDERABLES Performing Organization Address City/State/[place] [address] (ABNORMAL) Hemogram (08/13/2017 5:33 AM EST) Analysis Performed At Patho logist Time Signature WBC 10.1 (H) 4.0 - 9.5 [facility] x10(3)/[facility] LABORATORY RBC 3.21 (L) 4.58 - [facility] 5.54 [facility] x10(6)/[facility] LABORATORY Hemoglobin 9.2 (L) 13.7 - [facility] 16[facility] gm/dL [facility]ORY Hematocrit 29.6 (L) 40.5 - [facility] 48.5 % [facility] MCV 92.2 82.9 - [facility] 93.1 fL [facility] [facility] MCH 28.7 27.5 - [facility]1 pg [facility] MCHC 31.1 (L) 32.0 - [facility] RYAN 35.7 gm/dL [facility] Platelets 263 145 - 357 [facility] LABORATORY RDWSD 54.8 (H) 36.0 - BARBAR[place] DAVIS 45.0 [facility] LABORATORY RDWCV 16.4 (H) 11.4 - [facility] RYAN 13.8 % [facility] MPV 9.2 7.6 - 12.9 [facility] LABORATORY nRBC % Auto 0.0 % [facility] nRBC Abs Auto 0.000 0.000 - BARBARA DAVIS 0.000 [facility] x10(3)/[facility] LABORATORY Specimen Anatomical Collection Method Collection Time Receive d Time (Source) Location / / Volume Laterality Blood specimen 08/13/2017 5:33 AM 018 6:04 (specimen) EST AM EST Resulting Agency Comment Spec In Lab Yonathan Smith MD HEMATOLOGY ORDERABLES Performing Organization Address City/[facility]/[place] [address] (ABNORMAL) Prothrombin Time (08/13/2017 5:33 AM EST) P athologist Signature PT 17.3 (H) 11.8 - 14.0 [facility] LABORATORY INR 1.4 (H) [...] Smith MD HEMATOLOGY ORDERABLES Performing Organization Address City/[facility]/[place] [address] (ABNORMAL) Basic Metabolic Panel (non-fasting) (08/13/2017 5:33 AM EST) athologist Signature Glucose Lvl 126 65 - 199 [facility] mg/dL [facility] Comment: Diabetes: >=200 mg/dL plus symp toms BUN 18 10 - 20 mg/dL [facility] Creatinine 1.16 0.80 - 1.50 mg/dL [facility] Sodium 141 135 - 145 mmol/L [facility] [...] Calcium 7.9 (L) 8.5 - 10.5 mg/dL [facility] Estimated GFR >60 >=60 [facility] Comment: The reported eGFR should be multiplied b y 1.2 for patients. The MDRD is not an appropriate measure o f renal function for patients with body mass extremes or in patients with acute kidney failure. http://[employer]/DHnkdep http://[employer]/DHMCnkf Specimen Anatomical Collection Method Collection Time Receive d Time (Source) Location / / Volume Laterality Blood specimen 08/13/2017 5:33 AM 018 6:04 (specimen) EST AM EST Resulting Agency Comment Spec In Lab Yonathan Smith MD CHEMISTRY ORDERABLES Performing Organization Address City/State/[place] [address] POCT Glucose (08/13/2017 4:29 AM EST) athologist Signature POC Glucose 111 65 - 199 [place] RYAN mg/dL [facility] Comment: Supplemental ranges: <140 mg/dL before meals <180 mg/dL all other times of the day Specimen Anatomical Collection Method Collection Time Receive d Time (Source) Location / / Volume Laterality Blood specimen 08/13/2017 4:29 AM 018 4:29 (specimen) EST AM EST Yonathan Smith MD POINT OF CARE TEST ORDERABLE S Performing Organization Address City/State/[place] [address] POCT Glucose (08/12/2017 11:28 PM EST) athologist Signature POC Glucose 164 65 - 199 [facility] mg/dL [facility] Comment: Supplemental ranges: <140 mg/dL before meals <180 mg/dL all other times of the day Specimen Anatomical Collection Method Collection Time Receive d Time (Source) Location / / Volume Laterality Blood specimen 08/12/2017 11:28 8 (specimen) PM EST 11:28 PM EST Yonathan Smith MD POINT OF CARE TEST ORDERABLE S Performing Organization Address City/State/[place] [address] (ABNORMAL) POCT Glucose (08/12/2017 7:40 PM EST) athologist Signature POC Glucose 209 (H) 65 - 199 [facility] mg/dL [facility] Comment: Supplemental ranges: <140 mg/dL before meals <180 mg/dL all other times of the day Specimen Anatomical Collection Method Collection Time Receive d Time (Source) Location / / Volume Laterality Blood specimen 08/12/2017 7:40 PM 018 7:40 (specimen) EST PM EST Yonathan Smith MD POINT OF CARE TEST ORDERABLE S Performing Organization Address City/State/ZIP Code Phon e Number [address] POCT Glucose (08/12/2017 4:24 PM EST) athologist Signature POC Glucose 161 65 - 199 [facility] mg/dL [facility] Comment: Supplemental ranges: <140 mg/dL before meals <180 mg/dL all other times of the day Specimen Anatomical Collection Method Collection Time Receive d Time (Source) Location / / Volume Laterality Blood specimen 08/12/2017 4:24 PM 018 4:24 (specimen) EST PM EST Yonathan Smith MD POINT OF CARE TEST ORDERABLE S Performing Organization Address City/State/ZIP Code Phon e Number [address] POCT Glucose (08/12/2017 12:00 PM EST) athologist Signature POC Glucose 167 65 - 199 [facility] Comment: Supplemental ranges: <140 mg/dL before meals <180 mg/dL all other times of the day Specimen Anatomical Collection Method Collection Time Receive d Time (Source) Location / / Volume Laterality Blood specimen 08/12/2017 12:00 8 (specimen) PM EST 12:00 PM EST Yonathan Smith MD POINT OF CARE TEST ORDERABLE S Performing Organization Address City/State/ZIP Code Phon e Number [address] POCT Glucose (08/12/2017 7:25 AM EST) athologist Signature POC Glucose 152 65 - 199 [facility]dL [facility] Comment: Supplemental ranges: <140 mg/dL before meals <180 mg/dL all other times of the day Specimen Anatomical Collection Method Collection Time Receive d Time (Source) Location / / Volume Laterality Blood specimen 08/12/2017 7:25 AM 018 7:25 (specimen) EST AM EST Yonathan Smith MD POINT OF CARE TEST ORDERABLE S Performing Organization Address City/State/ZIP Code Phon e Number [address] (ABNORMAL) Differential, Automated (08/12/2017 6:29 AM EST) Patholo gist Method Time Signature Neutrophils % 78.7 % [facility] Neutr Abs (ANC) 7.94 (H) 1.70 - [facility] 6.10 [facility] x10(3)/[facility] LABORATORY Lymphocytes % 8.8 % [facility] Lymphocytes Abs 0.9 0.9 - 3.2 [facility] x10(3)/[facility] LABORATORY Monocytes % 7.8 % [facility] Monocyte Abs 0.8 0.3 - 0.9 [facility] x10(3)/[facility] LABORATORY Eosinophils % 3.9 % [facility] Eosinophils Abs 0.4 0.0 - 0.4 [facility] x10(3)/[facility] LABORATORY Basophils % 0.3 % [facility] Basophils Abs 0.0 0.0 - 0.1 [facility] x10(3)/[facility] LABORATORY Immature Gran % 0.50 % [facility] [...] Gran Abs 0.05 (H) 0.00 - 0.04 x10(3)/[facility] LABORATORY Specimen Anatomical Collection Method Collection Time Receive d Time (Source) Location / / Volume Laterality Blood specimen 08/12/2017 6:29 AM 018 6:38 (specimen) EST AM EST Resulting Agency Comment Spec In Lab Yonathan Smith MD HEMATOLOGY ORDERABLES Performing Organization Address City/State/[place] [address] (ABNORMAL) Hemogram (08/12/2017 6:29 AM EST) Analysis Performed At Patho logist Time Signature WBC 10.1 (H) 4.0 - 9.5 [facility] x10(3)/[facility] LABORATORY RBC 3.02 (L) 4.58 - [facility] 5.54 [facility] x10(6)/[facility] LABORATORY Hemoglobin 8.7 (L) 13.7 - [facility] 16.5 gm/dL [facility] Hematocrit 28.1 (L) 40.5 - [place] RYAN 48.5 % [facility] MCV 93.0 82.9 - [facility] 93.1 [facility] LABORATORY MCH 28.8 27.5 - [facility] 32.1 pg [facility] MCHC 31.0 (L) 32.0 - [place] OLIVASCK 35.7 gm/dL [facility] Platelets 223 145 - 357 [facility] x10(3)/[facility] LABORATORY RDWSD 56.1 (H) 36.0 - [place] RYAN 45.0 [facility] LABORATORY RDWCV 16.4 (H) 11.4 - [facility] R[facility] 13.8 % [facility] MPV 9.0 7.6 - 12.9 [facility] LABORATORY nRBC % Auto 0.0 % [facility] nRBC Abs Auto 0.000 0.000 - [facility] R[facility] 0.000 [facility] x10(3)/[facility] LABORATORY Specimen Anatomical Collection Method Collection Time Receive d Time (Source) Location / / Volume Laterality Blood specimen 08/12/2017 6:29 AM 018 6:38 (specimen) EST AM EST Resulting Agency Comment Spec In Lab Yonathan Smith MD HEMATOLOGY ORDERABLES Performing Organization Address City/State/[place] [address] (ABNORMAL) Prothrombin Time (08/12/2017 6:29 AM EST) P athologist Signature PT 16.1 (H) 11.8 - 14.0 [facility] LABORATORY INR 1.3 (H) [...] Organization Address City/State/[place] [address] (ABNORMAL) Basic Metabolic Panel (non-fasting) (08/12/2017 6:29 AM EST) athologist Signature Glucose Lvl 151 65 - 199 [facility] mg/dL [facility] Comment: Diabetes: >=200 mg/dL plus symp toms BUN 18 10 - 20 mg/dL [facility] Creatinine 1.11 0.80 - 1.50 mg/dL [facility] LABOR[facility]ORY Sodium 138 135 - [...] Calcium 7.9 (L) 8.5 - 10.5 mg/dL [facility] LABOR[facility]ORY Estimated GFR >60 >=60 [facility] Comment: The reported eGFR should be multiplied b y 1.2 for patients. The MDRD is not an appropriate measure o f renal function for patients with body mass extremes or in patients with acute kidney failure. http://[employer]/DHnkdep http://[employer]/DHMCnkf Specimen Anatomical Collection Method Collection Time Receive d Time (Source) Location / / Volume Laterality Blood specimen 08/12/2017 6:29 AM 018 6:38 (specimen) EST AM EST Resulting Agency Comment Spec In Lab Yonathan Smith MD CHEMISTRY ORDERABLES Performing Organization Address City/State/ZIP Code Phon e Number [address] POCT Glucose (08/12/2017 4:08 AM EST) P athologist Signature POC Glucose 181 65 - 199 [facility] Comment: Supplemental ranges: <140 mg/dL before meals <180 mg/dL all other times of the day Specimen Anatomical Collection Method Collection Time Receive d Time (Source) Location / / Volume Laterality Blood specimen 08/12/2017 4:08 AM 018 4:08 (specimen) EST AM EST Yonathan Smith MD POINT OF CARE TEST ORDERABLE S Performing Organization Address City/[facility]/[place] [address] (ABNORMAL) POCT Glucose (08/12/2017 12:17 AM EST) P athologist Signature POC Glucose 221 (H) 65 - 199 [facility] mg/dL [facility] Comment: Supplemental ranges: <140 mg/dL before meals <180 mg/dL all other times of the day Specimen Anatomical Collection Method Collection Time Receive d Time (Source) Location / / Volume Laterality Blood specimen 08/12/2017 12:17 8 (specimen) AM EST 12:17 AM EST Yonathan Smith MD POINT OF CARE TEST ORDERABLE S Performing Organization Address City/State/[place] [address] (ABNORMAL) POCT Glucose (08/11/2017 8:52 PM EST) P athologist Signature POC Glucose 221 (H) 65 - 199 [facility]/dL [facility] Comment: Supplemental ranges: <140 mg/dL before meals <180 mg/dL all other times of the day Specimen Anatomical Collection Method Collection Time Receive d Time (Source) Location / / Volume Laterality Blood specimen 08/11/2017 8:52 PM 018 8:52 (specimen) EST PM EST Yonathan Smith MD POINT OF CARE TEST ORDERABLE S Performing Organization Address City/[facility]/[place] [address] POCT Glucose (08/11/2017 5:59 PM EST) athologist Signature POC Glucose 169 65 - 199 BAR[facility] ZHAORYAN mg/dL [facility] Comment: Supplemental ranges: <140 mg/dL before meals <180 mg/dL all other times of the day Specimen Anatomical Collection Method Collection Time Receive d Time (Source) Location / / Volume Laterality Blood specimen 08/11/2017 5:59 PM 018 5:59 (specimen) EST PM EST Yonathan Smith MD POINT OF CARE TEST ORDERABLE S Performing Organization Address City/[facility]/[place] [address] (ABNORMAL) POCT Glucose (08/11/2017 4:08 PM EST) athologist Signature POC Glucose 240 (H) 65 - 199 [place] RYAN mg/dL [facility] Comment: Supplemental ranges: <140 mg/dL before meals <180 mg/dL all other times of the day Specimen Anatomical Collection Method Collection Time Receive d Time (Source) Location / / Volume Laterality Blood specimen 08/11/2017 4:08 PM 018 4:08 (specimen) EST PM EST Yonathan Smith MD POINT OF CARE TEST ORDERABLE S Performing Organization Address City/[facility]/[place] [address] POCT Glucose (08/11/2017 12:04 PM EST) athologist Signature POC Glucose 182 65 - 199 [place] ZHAORYAN mg/dL [facility] Comment: Supplemental ranges: <140 mg/dL before meals <180 mg/dL all other times of the day Specimen Anatomical Collection Method Collection Time Receive d Time (Source) Location / / Volume Laterality Blood specimen 08/11/2017 12:04 8 (specimen) PM EST 12:04 PM EST Yonathan Smith MD POINT OF CARE TEST ORDERABLE S Performing Organization Address City/State/ZIP Code Phon e Number [address] POCT Glucose (08/11/2017 7:31 AM EST) P athologist Signature POC Glucose 156 65 - 199 [facility] mg/dL [facility] Comment: Supplemental ranges: <140 mg/dL before meals <180 mg/dL all other times of the day Specimen Anatomical Collection Method Collection Time Receive d Time (Source) Location / / Volume Laterality Blood specimen 08/11/2017 7:31 AM 018 7:31 (specimen) EST AM EST Yonathna Smith MD POINT OF CARE TEST ORDERABLE S Performing Organization Address City/State/ZIP Code Phon e Number [address] (ABNORMAL) Differential, Automated (08/11/2017 6:16 AM EST) Patholo gist Method Time Signature Neutrophils % 83.7 % [facility] Neutr Abs (ANC) 10.76 (H) 1.70 - [facility] 6.10 [facility] x10(3)/[facility] LABORATORY Lymphocytes % 6.0 % [facility] Lymphocytes Abs 0.8 (L) 0.9 - 3.2 [facility] x10(3)/[facility] LABORATORY Monocytes % 7.5 % [facility] Monocyte Abs 1.0 (H) 0.3 - 0.9 [facility] x10(3)/[facility] LABORATORY Eosinophils % 2.0 % [facility] Eosinophils Abs 0.3 0.0 - 0.4 [facility] x10(3)/[facility] LABORATORY Basophils % 0.3 % [facility] Basophils Abs 0.0 0.0 - 0.1 [facility] x10(3)/[facility] LABORATORY Immature Gran % 0.50 % [facility] [...] Gran Abs 0.06 (H) 0.00 - 0.04 x10(3)/[facility] LABORATORY Specimen Anatomical Collection Method Collection Time Receive d Time (Source) Location / / Volume Laterality Blood specimen 08/11/2017 6:16 AM 018 6:24 (specimen) EST AM EST Resulting Agency Comment Spec In Lab Yonathan Smith MD HEMATOLOGY ORDERABLES Performing Organization Address City/State/[place] [address] (ABNORMAL) Hemogram (08/11/2017 6:16 AM EST) Analysis Performed At Patho logist Time Signature WBC 12.9 (H) 4.0 - 9.5 [facility] x10(3)/[facility] LABORATORY RBC 3.28 (L) 4.58 - [facility] 5.54 [facility] x10(6)/[facility] LABORATORY Hemoglobin 9.5 (L) 13.7 - [facility] 16.[facility] gm/dL [facility] Hematocrit 29.8 (L) 40.5 - [facility] 48.5 % [facility] MCV 90.9 82.9 - [facility] 93.1 [facility] LABORATORY MCH 29.0 27.5 - [facility] 32.1 pg [facility] MCHC 31.9 (L) 32.0 - [facility] 35.7 gm/dL [facility] Platelets 236 145 - 357 [facility] x10(3)/[facility] LABORATORY RDWSD 53.5 (H) 36.0 - [facility] 45.0 [facility] LABORATORY RDWCV 16.3 (H) 11.4 - [facility] 13.8 % [facility]ATORY MPV 8.8 7.6 - 12.9 [facility] LABORATORY nRBC % Auto 0.0 % [facility]OR[facility]ORY nRBC Abs Auto 0.000 0.000 - [facility] 0.000 [facility] x10(3)/[facility] LABORATORY Specimen Anatomical Collection Method Collection Time Receive d Time (Source) Location / / Volume Laterality Blood specimen 08/11/2017 6:16 AM 018 6:24 (specimen) EST AM EST Resulting Agency Comment Spec In Lab Yonathan Smith MD HEMATOLOGY ORDERABLES Performing Organization Address City/[facility]/[place] [address] (ABNORMAL) Prothrombin Time (08/11/2017 6:16 AM EST) athologist Signature PT 15.5 (H) 11.8 - 14.0 [facility] LABORATORY INR 1.3 (H) [...] Smith MD HEMATOLOGY ORDERABLES Performing Organization Address City/[facility]/[place] [address] Basic Metabolic Panel (non-fasting) (08/11/2017 6:16 AM EST) athologist Signature Glucose Lvl 139 65 - 199 [facility] mg/dL [facility] Comment: Diabetes: >=200 mg/dL plus symp toms BUN 12 10 - 20 mg/dL [facility] Creatinine 0.91 0.80 - 1.50 mg/dL [facility] LABOR[facility]ORY Sodium 138 135 - [facility] Estimated GFR >60 >=60 [facility] Comment: The reported eGFR should be multiplied b y 1.2 for patients. The MDRD is not an appropriate measure o f renal function for patients with body mass extremes or in patients with acute kidney failure. http://[employer]/DHnkdep http://[employer]/DHMCnkf Specimen Anatomical Collection Method Collection Time Receive d Time (Source) Location / / Volume Laterality Blood specimen 08/11/2017 6:16 AM 018 6:24 (specimen) EST AM EST Resulting Agency Comment Spec In Lab Yonathan Smith MD CHEMISTRY ORDERABLES Performing Organization Address City/[facility]/ZIP Code Phon e Number [address] POCT Glucose (08/11/2017 4:07 AM EST) P athologist Signature POC Glucose 162 65 - 199 [facility] mg/dL [facility] Comment: Supplemental ranges: <140 mg/dL before meals <180 mg/dL all other times of the day Specimen Anatomical Collection Method Collection Time Receive d Time (Source) Location / / Volume Laterality Blood specimen 08/11/2017 4:07 AM 018 4:07 (specimen) EST AM EST Yoanthan Smith MD POINT OF CARE TEST ORDERABLE S Performing Organization Address City/[facility]/[place] [address] POCT Glucose (08/10/2017 11:59 PM EST) athologist Signature POC Glucose 166 65 - 199 [facility] Comment: Supplemental ranges: <140 mg/dL before meals <180 mg/dL all other times of the day Specimen Anatomical Collection Method Collection Time Receive d Time (Source) Location / / Volume Laterality Blood specimen 08/10/2017 11:59 8 (specimen) PM EST 11:59 PM EST Yonathan Smith MD POINT OF CARE TEST ORDERABLE S Performing Organization Address City/State/[place] [address] POCT Glucose (08/10/2017 8:12 PM EST) athologist Signature POC Glucose 156 65 - 199 [facility]/dL [facility] Comment: Supplemental ranges: <140 mg/dL before meals <180 mg/dL all other times of the day Specimen Anatomical Collection Method Collection Time Receive d Time (Source) Location / / Volume Laterality Blood specimen 08/10/2017 8:12 PM 018 8:12 (specimen) EST PM EST Yonathan Smith MD POINT OF CARE TEST ORDERABLE S Performing Organization Address City/[facility]/[place] [address] (ABNORMAL) POCT Glucose (08/10/2017 4:42 PM EST) athologist Signature POC Glucose 211 (H) 65 - 199 [facility] mg/dL [facility] Comment: Supplemental ranges: <140 mg/dL before meals <180 mg/dL all other times of the day Specimen Anatomical Collection Method Collection Time Receive d Time (Source) Location / / Volume Laterality Blood specimen 08/10/2017 4:42 PM 018 4:42 (specimen) EST PM EST Yonathan Smith MD POINT OF CARE TEST ORDERABLE S Performing Organization Address City/State/[place] [address] (ABNORMAL) Differential, Automated (08/10/2017 2:30 PM EST) Patholo gist Method Time Signature Neutrophils % 87.6 % [facility]OR[facility] Neutr Abs (ANC) 9.90 (H) 1.70 - [facility] 6.10 [facility] x10(3)/[facility] LABORATORY Lymphocytes % 4.3 % [facility]OR[facility]ORY Lymphocytes Abs 0.5 (L) 0.9 - 3.2 [facility] x10(3)/[facility] LABORATORY Monocytes % 6.0 % [facility] Monocyte Abs 0.7 0.3 - 0.9 [facility] x10(3)/[facility] LABORATORY Eosinophils % 1.1 % [facility] Eosinophils Abs 0.1 0.0 - 0.4 [facility] x10(3)/[facility] LABORATORY Basophils % 0.4 % [facility] Basophils Abs 0.0 0.0 - 0.1 [facility] x10(3)/[facility] LABORATORY Immature Gran % 0.60 % [facility] Comment: Immature granulocytes(IG's)percentage an d absolute count will include metamyelocytes, myelocytes, and promyelo cytes. Blood smears from CBCs yielding IG's will be scanned manually for concor dance. If this scan disagrees with the automated IG or if promyelocytes are not ed, a manual differential will be performed. Mleisa Gran Abs 0.07 (H) 0.00 - 0.04 x10(3)/[facility] LABORATORY Specimen Anatomical Collection Method Collection Time Receive d Time (Source) Location / / Volume Laterality Blood specimen 08/10/2017 2:30 PM 018 2:48 (specimen) EST PM EST Resulting Agency Comment Spec In Lab Yonathan Smith MD HEMATOLOGY ORDERABLES Performing Organization Address City/State/[place] [address] (ABNORMAL) Hemogram (08/10/2017 2:30 PM EST) Analysis Performed At [facility] logist Time Signature WBC 11.3 (H) 4.0 - 9.5 [facility] x10(3)/[facility] LABORATORY RBC 3.13 (L) 4.58 - [facility] 5.54 [facility] x10(6)/[facility] LABORATORY Hemoglobin 8.9 (L) 13.7 - [facility] 16.5 gm/dL [facility]ORATORY Hematocrit 28.4 (L) 40.5 - [facility] 48.5 % [facility]ATORY MCV 90.7 82.9 - [facility] 93[facility]1 [facility] LABORATORY MCH 28.4 27.5 - [facility] 32.1 pg [facility]ORATORY MCHC 31.3 (L) 32.0 - [facility] 35.7 gm/dL [facility]ORY Platelets 213 145 - 357 [place] [place] x10(3)/[facility] LABORATORY RDWSD 53.7 (H) 36.0 - [place] 45.0 [facility] LABORATORY RDWCV 16.4 (H) 11.4 - [facility] 13.8 % [facility] LABORATORY MPV 8.9 7.6 - 12.9 [facility] LABORATORY nRBC % Auto 0.0 % [facility] LABORATORY nRBC Abs Auto 0.000 0.000 - BARBAR[place] RYAN 0.000 [facility] x10(3)/[facility] LABORATORY Specimen Anatomical Collection Method Collection Time Receive d Time (Source) Location / / Volume Laterality Blood specimen 08/10/2017 2:30 PM 018 2:48 (specimen) EST PM EST Resulting Agency Comment Spec In Lab Yonathan Smith MD HEMATOLOGY ORDERABLES Performing Organization Address City/State/[place] [address] (ABNORMAL) POCT Glucose (08/10/2017 1:50 PM EST) P athologist Signature POC Glucose 243 (H) 65 - 199 [facility] mg/dL [facility] LABORATORY Comment: Supplemental ranges: <140 mg/dL before meals <180 mg/dL all other times of the day Specimen Anatomical Collection Method Collection Time Receive d Time (Source) Location / / Volume Laterality Blood specimen 08/10/2017 1:50 PM 018 1:50 (specimen) EST PM EST Yonathan Smith MD POINT OF CARE TEST ORDERABLE S Performing Organization Address City/State/ZIP Code Phon e Number [address] POCT Glucose (08/10/2017 11:21 AM EST) P athologist Signature POC Glucose 156 65 - 199 [facility] LABORATORY Comment: Supplemental ranges: <140 mg/dL before meals <180 mg/dL all other times of the day Specimen Anatomical Collection Method Collection Time Receive d Time (Source) Location / / Volume Laterality Blood specimen 08/10/2017 11:21 8 (specimen) AM EST 11:21 AM EST Yonathan Smith MD POINT OF CARE TEST ORDERABLE S Performing Organization Address City/State/ZIP Code Phon e Number [address] (ABNORMAL) Differential, Automated (08/10/2017 10:28 AM EST) [facility] gist Method Time Signature Neutrophils % 85.3 % [facility] LABORATORY Neutr Abs (ANC) 9.43 (H) 1.70 - [facility] 6.10 [facility] x10(3)/[facility] L LABORATORY Lymphocytes % 5.5 % [facility] LABORATORY Lymphocytes Abs 0.6 (L) 0.9 - 3.2 [facility] x10(3)/[facility] LABORATORY Monocytes % 5.9 % [facility] LABORATORY Monocyte Abs 0.6 0.3 - 0.9 [facility] x10(3)/[facility] LABORATORY Eosinophils % 2.1 % [facility] LABORATORY Eosinophils Abs 0.2 0.0 - 0.4 [facility] x10(3)/[facility] LABORATORY Basophils % 0.4 % [facility] LABORATORY Basophils Abs 0.0 0.0 - 0.1 [facility] x10(3)/[facility] LABORATORY Immature Gran % 0.80 % [facility] [...] Gran Abs 0.09 (H) 0.00 - 0.04 x10(3)/[facility] LABORATORY Specimen Anatomical Collection Method Collection Time Receive d Time (Source) Location / / Volume Laterality Blood specimen 08/10/2017 10:28 8 (specimen) AM EST 10:35 AM EST Resulting Agency Comment Spec In Lab Yonathan Smith MD HEMATOLOGY ORDERABLES Performing Organization Address City/State/[place] [address] (ABNORMAL) Hemogram (08/10/2017 10:28 AM EST) Analysis Performed At Patho logist Time Signature WBC 11.0 (H) 4.0 - 9.5 [facility] x10(3)/[facility] LABORATORY RBC 3.02 (L) 4.58 - [facility] Cebix 5.54 [facility] x10(6)/[facility] LABORATORY Hemoglobin 8.8 (L) 13.7 - [facility] 16.[facility] gm/dL [facility] LABORATORY Hematocrit 28.1 (L) 40.5 - [facility] 48.5 % [facility] LABORATORY MCV 93.0 82.9 - [facility] 93.1 [facility] LABORATORY MCH 29.1 27.5 - [facility] RYAN 32.1 pg [facility] LABORATORY MCHC 31.3 (L) 32.0 - [facility] 35.7 gm/dL [facility] LABORATORY Platelets 207 145 - 357 [facility] x10(3)/[facility] LABORATORY RDWSD 55.3 (H) 36.0 - [facility] RYAN 45.0 [facility] LABORATORY RDWCV 16.4 (H) 11.4 - [facility] RYAN 13.8 % [facility] LABORATORY MPV 9.0 7.6 - 12.9 [facility] LABORATORY nRBC % Auto 0.0 % [facility] LABORATORY nRBC Abs Auto 0.000 0.000 - [place]BAR[place] DAVIS 0.000 [facility] x10(3)/[facility] LABORATORY Specimen Anatomical Collection Method Collection Time Receive d Time (Source) Location / / Volume Laterality Blood specimen 08/10/2017 10:28 8 (specimen) AM EST 10:35 AM EST Resulting Agency Comment Spec In Lab Yonathan Smith MD HEMATOLOGY ORDERABLES Performing Organization Address City/State/ZIP Code Phon e [place] [address] VS Angiogram/intervention (vascular) (08/10/2017 [...] 2.5x80 5. Completion RLE angiogram 6. L LIME SPREADER angiogram 7. 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 L LIME SPREADER access in the distal L LIME SPREADER. - Closure device: Mynx Technical Procedure: ?The [...] for a 45cm 5F Destination. V18 and [place] a nd QuickCross catheters were used to [...] bifurcation. Access appeared in the distal R LIME SPREADER. Closure and sheath removal was performed with [...] 2.5x80 5. Completion RLE angiogram 6. L LIME SPREADER angiogram 7. 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 L LIME SPREADER access in the distal L LIME SPREADER. - Closure device: Mynx Technical Procedure: The [...] for a 45cm 5F Destination. V18 and [place] a nd QuickCross catheters were used to [...] bifurcation. Access appeared in the distal R LIME SPREADER. Closure and sheath removal was performed with [...] (ABNORMAL) Differential, Automated (08/10/2017 5:50 AM EST) [facility] Method Time Signature Neutrophils % 80.1 % [facility] LABORATORY Neutr Abs (ANC) 9.01 (H) 1.70 - [facility] 6.10 [facility] x10(3)/[facility] LABORATORY Lymphocytes % 8.8 % [facility] LABORATORY Lymphocytes Abs 1.0 0.9 - 3.2 [facility] x10(3)/[facility] LABORATORY Monocytes % 8.3 % [facility] LABORATORY Monocyte Abs 0.9 0.3 - 0.9 [facility] x10(3)/[facility] LABORATORY Eosinophils % 2.0 % [facility] LABORATORY Eosinophils Abs 0.2 0.0 - 0.4 [facility] x10(3)/[facility] LABORATORY Basophils % 0.4 % [facility] LABORATORY Basophils Abs 0.0 0.0 - 0.1 [facility] x10(3)/[facility] LABORATORY Immature Gran % 0.40 [...] Gran Abs 0.05 (H) 0.00 - 0.04 x10(3)/[facility] LABORATORY Specimen Anatomical Collection Method Collection Time Receive d Time (Source) Location / / Volume Laterality Blood specimen 08/10/2017 5:50 AM 018 5:59 (specimen) EST AM EST Resulting Agency Comment Spec In Lab Yonathan Smith MD HEMATOLOGY ORDERABLES Performing Organization Address City/State/[place] [address] (ABNORMAL) Hemogram (08/10/2017 5:50 AM EST) Analysis Performed At Patho logist Time Signature WBC 11.3 (H) 4.0 - 9.5 [place] RY[facility] x10(3)/[facility] LABORATORY RBC 3.15 (L) 4.58 - [place] RYAN 5.54 [facility] x10(6)/[facility] LABORATORY Hemoglobin 8.9 (L) 13.7 - [facility] 16.5 gm/dL [facility] LABORATORY Hematocrit 29.0 (L) 40.5 - [facility] 48.5 % [facility] LABORATORY MCV 92.1 82.9 - [facility] 93.1 [facility] LABORATORY MCH 28.3 27.5 - [place] RYAN 32.1 pg [facility] LABORATORY MCHC 30.7 (L) 32.0 - [place] RYAN 35.7 gm/dL [facility] LABORATORY Platelets 231 145 - 357 [facility] x10(3)/[facility] LABORATORY RDWSD 53.9 (H) 36.0 - [place] RYAN 45.0 [facility] LABORATORY RDWCV 16.2 (H) 11.4 - [facility] RYAN 13.8 % [facility] LABORATORY MPV 8.7 7.6 - 12.9 [facility] LABORATORY nRBC % Auto 0.0 % [facility] LABORATORY nRBC Abs Auto 0.000 0.000 - [place] RYAN 0.000 [facility] x10(3)/[facility] LABORATORY Specimen Anatomical Collection Method Collection Time Receive d Time (Source) Location / / Volume Laterality Blood specimen 08/10/2017 5:50 AM 018 5:59 (specimen) EST AM EST Resulting Agency Comment Spec In Lab Yonathan Smith MD HEMATOLOGY ORDERABLES Performing Organization Address City/State/[place] [address] (ABNORMAL) Basic Metabolic Panel (non-fasting) (08/10/2017 5:50 AM EST) P athologist Signature Glucose Lvl 135 65 - 199 [facility] mg/dL [facility] LABORATORY Comment: Diabetes: >=200 mg/dL plus symp toms BUN 17 10 - 20 mg/dL [facility] LABORATORY Creatinine 1.05 0.80 - 1.50 mg/dL [facility] [...] Calcium 8.1 (L) 8.5 - 10.5 mg/dL [facility] LABORATORY Estimated GFR >60 >=60 [facility] LABORATORY Comment: The reported eGFR should be multiplied b y 1.2 for patients. The MDRD is not an appropriate measure o f renal function for patients with body mass extremes or in patients with acute kidney failure. http://Buzzvil/DHnkdep http://Buzzvil/DHMCnkf Specimen Anatomical Collection Method Collection Time Receive d Time (Source) Location / / Volume Laterality Blood specimen 08/10/2017 5:50 AM 018 5:59 (specimen) EST AM EST Resulting Agency Comment Spec In Lab Yonathan Smith MD CHEMISTRY ORDERABLES Performing Organization Address City/State/[place] [address] (ABNORMAL) Prothrombin Time (08/10/2017 5:50 AM EST) athologist Signature PT 16.8 (H) 11.8 - 14.0 [facility] LABORATORY INR 1.4 (H) [...] Smith MD HEMATOLOGY ORDERABLES Performing Organization Address City/[facility]/ZIP Code Phon e Number [address] (ABNORMAL) POCT Glucose (08/10/2017 4:01 AM EST) athologist Signature POC Glucose 206 (H) 65 - 199 [facility]dL [facility] LABORATORY Comment: Supplemental ranges: <140 mg/dL before meals <180 mg/dL all other times of the day Specimen Anatomical Collection Method Collection Time Receive d Time (Source) Location / / Volume Laterality Blood specimen 08/10/2017 4:01 AM 018 4:01 (specimen) EST AM EST Yonathan Smith MD POINT OF CARE TEST ORDERABLE S Performing Organization Address City/[facility]/ZIP Code Phon e Number [address] POCT Glucose (08/10/2017 2:01 AM EST) athologist Signature POC Glucose 188 65 - 199 [facility]/dL [facility] LABORATORY Comment: Supplemental ranges: <140 mg/dL before meals <180 mg/dL all other times of the day Specimen Anatomical Collection Method Collection Time Receive d Time (Source) Location / / Volume Laterality Blood specimen 08/10/2017 2:01 AM 018 2:01 (specimen) EST AM EST Yonathan Smith MD POINT OF CARE TEST ORDERABLE S Performing Organization Address City/[facility]/ZIP Code Phon e Number [address] (ABNORMAL) POCT Glucose (08/09/2017 11:42 PM EST) athologist Signature POC Glucose 283 (H) 65 - 199 [facility] mg/dL [facility] LABORATORY Comment: Supplemental ranges: <140 mg/dL before meals <180 mg/dL all other times of the day Specimen Anatomical Collection Method Collection Time Receive d Time (Source) Location / / Volume Laterality Blood specimen 08/09/2017 11:42 8 (specimen) PM EST 11:42 PM EST Yonathan Smith MD POINT OF CARE TEST ORDERABLE S Performing Organization Address City/State/ZIP Code Phon e Number [address] POCT Glucose (08/09/2017 8:55 PM EST) athologist Signature POC Glucose 182 65 - 199 [facility] mg/dL [facility] LABORATORY Comment: Supplemental ranges: <140 mg/dL before meals <180 mg/dL all other times of the day Specimen Anatomical Collection Method Collection Time Receive d Time (Source) Location / / Volume Laterality Blood specimen 08/09/2017 8:55 PM 018 8:55 (specimen) EST PM EST Yonathan Smith MD POINT OF CARE TEST ORDERABLE S Performing Organization Address City/State/[place] [address] (ABNORMAL) APTT (08/09/2017 6:42 PM EST) athologist Signature PTT 90 (H) 25 - 35 sec [facility] LABORATORY Comment: The recommended therapeutic range for fu ll dose, unfractionated heparin at [facility] is 80 ? 114 seconds. The use [...] Address City/State/ZIP Code Phon e Number [address] POCT Glucose (08/09/2017 4:41 PM EST) athologist Signature POC Glucose 195 65 - 199 [place] ZHAORYAN mg/dL [facility] LABORATORY Comment: Supplemental ranges: <140 mg/dL before meals <180 mg/dL all other times of the day Specimen Anatomical Collection Method Collection Time Receive d Time (Source) Location / / Volume Laterality Blood specimen 08/09/2017 4:41 PM 018 4:41 (specimen) EST PM EST Yonathan Smith MD POINT OF CARE TEST ORDERABLE S Performing Organization Address City/[facility]/ZIP Code Phon e Number BARBARA [address] POCT Glucose (08/09/2017 12:29 PM EST) athologist Signature POC Glucose 140 65 - 199 [place]BAR[place] ZHAORYAN mg/dL [facility] LABORATORY Comment: Supplemental ranges: <140 mg/dL before meals <180 mg/dL all other times of the day Specimen Anatomical Collection Method Collection Time Receive d Time (Source) Location / / Volume Laterality Blood specimen 08/09/2017 12:29 8 (specimen) PM EST 12:29 PM EST Yonathan Smith MD POINT OF CARE TEST ORDERABLE S Performing Organization Address City/[facility]/ZIP Code Phon e Number [place] RY[place] [address] POCT Glucose (08/09/2017 9:59 AM EST) athologist Signature POC Glucose 135 65 - 199 [place] ZHAORYAN mg/dL [facility] LABORATORY Comment: Supplemental ranges: <140 mg/dL before meals <180 mg/dL all other times of the day Specimen Anatomical Collection Method Collection Time Receive d Time (Source) Location / / Volume Laterality Blood specimen 08/09/2017 9:59 AM 018 9:59 (specimen) EST AM EST Yonathan Smith MD POINT OF CARE TEST ORDERABLE S Performing Organization Address City/State/[place] [address] [facility] LAB[address]ORY Drive Specimen to Pathology (08/09/2017 [...] Organization Address City/State/[place] [address] [facility] LAB[address]ORY Drive Surgical Pathology Report (08/09/2017 8:40 AM EST) Component Value Ref Test Analysis Performed At [facility] gist Range Method Time Signature Surgical [id number] ? Location: [facility]; [facility]; A [facility] Report The signing pathologist has (i) examined the relevant preparation(s) for the [facility] specimen(s) and (ii) rendered or confirmed the diagnosis(es) . HOSPITAL LABORATORY . 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 ?Viable proximal resection margins. Electronically signed by: ??Henrique Saravia MD Verified: ??08/13/2017 ?Pathologist Performed at: ??-[facility] Dept. of Pathology, [place], [place] CLINICAL INFORMATION Specimen Submitted: A - [...] Address City/State/[place] [address] Anaerobic Culture (08/09/2017 8:30 AM EST) [facility] Method Time Signature Anaerobic No anaerobic [facility] Culture organisms [facility] LABORATORY Specimen Anatomical Collection Method Collection [...] Address City/State/[place] [address] (ABNORMAL) Abscess/Wound Aspirate Culture (08/09/2017 8:30 AM EST) joblocal Method Time Signature Abscess/Wound Moderate mixed [facility] Aspirate bacterial RYAN Culture morphotypes [facility] normal LABORATORY cutaneous leroy (A) Gram Stain Rare White Blood Cells [facility] Few Gram Positive Cocci in pairs [place] (A) [facility] LABORATORY Organism Gram Positive BARBARA Cocci in pairs [place] (A) [facility] LABORATORY Specimen Anatomical Collection Method Collection Time Receive d Time (Source) Location / / Volume Laterality Specimen from STRUCTURE OF RIGHT 08/09/2017 8:30 AM 9:10 abscess FOOT / Unknown EST AM EST (specimen) Comment: SWAB RIGHT GREAT TOE ABSCESS FO R AEROBIC AND ANAEROBIC CULTURES. Resulting Agency Comment Spec In Lab Yonathan Smith MD MICROBIOLOGY - GENERAL ORDER ROBSON Performing Organization Address City/[facility]/ZIP Code Phon e Number [address] POCT Glucose (08/09/2017 4:28 AM EST) P athologist Signature POC Glucose 128 65 - 199 [facility] mg/dL [facility] LABORATORY Comment: Supplemental ranges: <140 mg/dL before meals <180 mg/dL all other times of the day Specimen Anatomical Collection Method Collection Time Receive d Time (Source) Location / / Volume Laterality Blood specimen 08/09/2017 4:28 AM 018 4:28 (specimen) EST AM EST Yonathan Smith MD POINT OF CARE TEST ORDERABLE S Performing Organization Address City/[facility]/ZIP Code Phon e Number [address] ABORH Recheck Status (08/09/2017 1:10 AM EST) [facility] 5th Finger Method Time Signature ABORH Type Completed [facility] LABORATORY Specimen Anatomical Collection Method Collection Time Receive d Time (Source) Location / / Volume Laterality Blood specimen 08/09/2017 1:10 AM 018 1:35 (specimen) EST AM EST Resulting Agency Comment Spec In Lab Yonathan Smith MD BLOOD BANK ORDERABLES Performing Organization Address City/[facility]/ZIP Code Phon e Number [address] Antibody screen (08/09/2017 1:10 AM EST) [facility] 5th Finger Method Time Signature Ab Screen Negative [facility] LABORATORY Expires at 08/12/2017 [id number] on: [facility] LABORATORY Specimen Anatomical Collection Method Collection Time Receive d Time (Source) Location / / Volume Laterality Blood specimen 08/09/2017 1:10 AM 018 1:35 (specimen) EST AM EST Resulting Agency Comment Spec In Lab Yonathan Smith MD BLOOD BANK ORDERABLES Performing Organization Address City/[facility]/ZIP Code Phon e Number [address] ABO/Rh Typing (08/09/2017 1:10 AM EST) P athologist Signature ABORh Type O Pos [facility] Specimen Anatomical Collection Method Collection Time Receive d Time (Source) Location / / Volume Laterality Blood specimen 08/09/2017 1:10 AM 018 1:35 (specimen) EST AM EST Resulting Agency Comment Spec In Lab Yonathan Smith MD BLOOD BANK ORDERABLES Performing Organization Address [facility] Phon e Number [address] (ABNORMAL) APTT (08/09/2017 1:10 AM EST) P athologist Signature PTT 86 (H) 25 - 35 sec [facility] LABORATORY Comment: The recommended therapeutic range for fu ll dose, unfractionated heparin at [facility] is 80 ? 114 seconds. The use [...] Smith MD HEMATOLOGY ORDERABLES Performing Organization Address City/[facility] Phon e Number [address] (ABNORMAL) Differential, Automated (08/09/2017 1:10 AM EST) Patholo gist Method Time Signature Neutrophils % 76.2 % [facility] LABORATORY Neutr Abs (ANC) 8.59 (H) 1.70 - [facility] 6.10 [facility] x10(3)/[facility] LABORATORY Lymphocytes % 11.0 % [facility] LABORATORY Lymphocytes Abs 1.2 0.9 - 3.2 [facility] x10(3)/[facility] LABORATORY Monocytes % 8.4 % [facility] LABORATORY Monocyte Abs 1.0 (H) 0.3 - 0.9 [facility] x10(3)/[facility] LABORATORY Eosinophils % 3.5 % [facility] LABORATORY Eosinophils Abs 0.4 0.0 - 0.4 [facility] x10(3)/[facility] LABORATORY Basophils % 0.5 % [facility] LABORATORY Basophils Abs 0.1 0.0 - 0.1 [facility] x10(3)/[facility] LABORATORY Immature Gran % 0.40 [...] Gran Abs 0.05 (H) 0.00 - 0.04 x10(3)/[facility] LABORATORY Specimen Anatomical Collection Method Collection Time Receive d Time (Source) Location / / Volume Laterality Blood specimen 08/09/2017 1:10 AM 018 1:19 (specimen) EST AM EST Resulting Agency Comment Spec In Lab Yonathan Smith MD HEMATOLOGY ORDERABLES Performing Organization Address City/State/[place] [address] (ABNORMAL) Hemogram (08/09/2017 1:10 AM EST) Analysis Performed At Patho logist Time Signature WBC 11.3 (H) 4.0 - 9.5 [facility] x10(3)/[facility] LABORATORY RBC 3.47 (L) 4.58 - [facility] 5.54 [facility] x10(6)/[facility] LABORATORY Hemoglobin 10.0 (L) 13.7 - [facility] 16.5 gm/dL [facility] LABORATORY Hematocrit 31.9 (L) 40.5 - [facility] RYAN 48.5 % [facility] LABORATORY MCV 91.9 82.9 - [facility] 93[facility]1 [facility] LABORATORY MCH 28.8 27.5 - [place] RYAN 32.1 pg [facility] LABORATORY MCHC 31.3 (L) 32.0 - [facility] RYAN 35.7 gm/dL [facility] LABORATORY Platelets 234 145 - 357 [facility] x10(3)/[facility] LABORATORY RDWSD 54.0 (H) 36.0 - [facility] RYAN 45.0 [facility] LABORATORY RDWCV 16.2 (H) 11.4 - [facility] 13.8 % [facility] LABORATORY MPV 8.7 7.6 - 12.9 [facility] LABORATORY nRBC % Auto 0.0 % [facility] LABORATORY nRBC Abs Auto 0.000 0.000 - [facility] 0.000 [facility] x10(3)/[facility] LABORATORY Specimen Anatomical Collection Method Collection Time Receive d Time (Source) Location / / Volume Laterality Blood specimen 08/09/2017 1:10 AM 018 1:19 (specimen) EST AM EST Resulting Agency Comment Spec In Lab Yonathan Smith MD HEMATOLOGY ORDERABLES Performing Organization Address City/State/[place] [address] (ABNORMAL) Prothrombin Time (08/09/2017 1:10 AM EST) P athologist Signature PT 16.0 (H) 11.8 - 14.0 [facility] LABORATORY INR 1.3 (H) [...] Organization Address City/State/[place] [address] (ABNORMAL) Basic Metabolic Panel (non-fasting) (08/09/2017 1:10 AM EST) athologist Signature Glucose Lvl 108 65 - 199 [facility] mg/dL [facility] LABORATORY Comment: Diabetes: >=200 mg/dL plus symp toms BUN 34 (H) 10 - 20 mg/dL [facility] LABORATORY Creatinine 1.54 (H) 0.80 - 1.50 mg/dL [facility] LABORATORY Sodium 138 135 - 145 mmol/L [facility] Potassium 4.5 3.5 - 5.0 mmol/L [facility] Calcium 8.3 (L) 8.5 - 10.5 mg/dL [facility] Estimated GFR 45 (L) >=60 [facility] Comment: The reported eGFR should be multiplied b y 1.2 for patients. The MDRD is not an appropriate measure o f renal function for patients with body mass extremes or in patients with acute kidney failure. http://[employer]/DHnkdep http://[employer]/DHMCnkf Specimen Anatomical Collection Method Collection Time Receive d Time (Source) Location / / Volume Laterality Blood specimen 08/09/2017 1:10 AM 018 1:19 (specimen) EST AM EST Resulting Agency Comment Spec In Lab Yonathan Smith MD CHEMISTRY ORDERABLES Performing Organization Address City/State/[place] [address] POCT Glucose (08/09/2017 12:05 AM EST) athologist Signature POC Glucose 128 65 - 199 [place] mg/dL [facility] Comment: Supplemental ranges: <140 mg/dL before meals <180 mg/dL all other times of the day Specimen Anatomical Collection Method Collection Time Receive d Time (Source) Location / / Volume Laterality Blood specimen 08/09/2017 12:05 8 (specimen) AM EST 12:05 AM EST Yonathan Smith MD POINT OF CARE TEST ORDERABLE S Performing Organization Address City/[facility]/[place] [address] (ABNORMAL) POCT Glucose (08/08/2017 7:36 PM EST) athologist Signature POC Glucose 215 (H) 65 - 199 [place] mg/dL [facility] Comment: Supplemental ranges: <140 mg/dL before meals <180 mg/dL all other times of the day Specimen Anatomical Collection Method Collection Time Receive d Time (Source) Location / / Volume Laterality Blood specimen 08/08/2017 7:36 PM 018 7:36 (specimen) EST PM EST Yonathan Smith MD POINT OF CARE TEST ORDERABLE S Performing Organization Address City/State/[place] [address] (ABNORMAL) POCT Glucose (08/08/2017 6:23 PM EST) athologist Signature POC Glucose 216 (H) 65 - 199 [place] mg/dL [facility] Comment: Supplemental ranges: <140 mg/dL before meals <180 mg/dL all other times of the day Specimen Anatomical Collection Method Collection Time Receive d Time (Source) Location / / Volume Laterality Blood specimen 08/08/2017 6:23 PM 018 6:23 (specimen) EST PM EST Yonathan Smith MD POINT OF CARE TEST ORDERABLE S Performing Organization Address City/State/[place] [address] (ABNORMAL) APTT (08/08/2017 6:00 PM EST) athologist Signature PTT 97 (H) 25 - 35 sec [facility] Comment: The recommended therapeutic range for fu ll dose, unfractionated heparin at [facility] is 80 ? 114 seconds. The use [...] Address City/State/[place] [address] POCT Glucose (08/08/2017 4:42 PM EST) athologist Signature POC Glucose 78 65 - 199 [place] mg/dL [facility] Comment: Supplemental ranges: <140 mg/dL before meals <180 mg/dL all other times of the day Specimen Anatomical Collection Method Collection Time Receive d Time (Source) Location / / Volume Laterality Blood specimen 08/08/2017 4:42 PM 018 4:42 (specimen) EST PM EST Yonathan Smith MD POINT OF CARE TEST ORDERABLE S Performing Organization Address City/[facility]/[place] [address] (ABNORMAL) POCT Glucose (08/08/2017 4:01 PM EST) athologist Signature POC Glucose 58 (L) 65 - 199 [facility] Comment: Supplemental ranges: <140 mg/dL before meals <180 mg/dL all other times of the day Specimen Anatomical Collection Method Collection Time Receive d Time (Source) Location / / Volume Laterality Blood specimen 08/08/2017 4:01 PM 018 4:01 (specimen) EST PM EST Yonathan Smith MD POINT OF CARE TEST ORDERABLE S Performing Organization Address City/[facility]/ZIP Code Phon e Number [address] POCT Glucose (08/08/2017 11:51 AM EST) P athologist Signature POC Glucose 90 65 - 199 [facility] Comment: Supplemental ranges: <140 mg/dL before meals <180 mg/dL all other times of the day Specimen Anatomical Collection Method Collection Time Receive d Time (Source) Location / / Volume Laterality Blood specimen 08/08/2017 11:51 8 (specimen) AM EST 11:51 AM EST Yonathan Smith MD POINT OF CARE TEST ORDERABLE S Performing Organization Address City/[facility]/[place] [address] (ABNORMAL) APTT (08/08/2017 10:27 AM EST) P athologist Signature PTT 64 (H) 25 - 35 sec [facility] Comment: The recommended therapeutic range for fu ll dose, unfractionated heparin at [facility] is 80 ? 114 seconds. The use [...] Smith MD HEMATOLOGY ORDERABLES Performing Organization Address City/[facility]/ZIP Code Phon e Number [address] POCT Glucose (08/08/2017 8:02 AM EST) athologist Signature POC Glucose 178 65 - 199 [facility] mg/dL [facility] Comment: Supplemental ranges: <140 mg/dL before meals <180 mg/dL all other times of the day Specimen Anatomical Collection Method Collection Time Receive d Time (Source) Location / / Volume Laterality Blood specimen 08/08/2017 8:02 AM 018 8:02 (specimen) EST AM EST Yonathan Smith MD POINT OF CARE TEST ORDERABLE S Performing Organization Address City/[facility]/ZIP [facility] [place] [address] (ABNORMAL) APTT (08/08/2017 4:51 AM EST) athologist Signature PTT >160 25 - 35 [facility] (Critical) sec [facility] Comment: Called by: HOWARD, Read back by: Melba Jaramillo, Date/Time:08/08/17 05:43. The recommended therapeutic range for fu ll dose, unfractionated heparin at [facility] is 80 ? 114 seconds. The use [...] Smith MD HEMATOLOGY ORDERABLES Performing Organization Address City/[facility]/[place] [address] (ABNORMAL) Differential, Automated (08/08/2017 4:51 AM EST) [facility] Method Time Signature Neutrophils % 77.9 % [facility] Neutr Abs (ANC) 8.17 (H) 1.70 - [facility] 6.10 [facility] x10(3)/[facility] LABORATORY Lymphocytes % 10.3 % [facility] Lymphocytes Abs 1.1 0.9 - 3.2 [facility] x10(3)/[facility] LABORATORY Monocytes % 7.0 % [facility] Monocyte Abs 0.7 0.3 - 0.9 [facility] x10(3)/[facility] LABORATORY Eosinophils % 3.6 % [facility] Eosinophils Abs 0.4 0.0 - 0.4 [facility] x10(3)/[facility] LABORATORY Basophils % 0.5 % [facility] Basophils Abs 0.0 0.0 - 0.1 [facility] x10(3)/[facility] LABORATORY Immature Gran % 0.70 % [facility] [...] Gran Abs 0.07 (H) 0.00 - 0.04 x10(3)/[facility] LABORATORY Specimen Anatomical Collection Method Collection Time Receive d Time (Source) Location / / Volume Laterality Blood specimen 08/08/2017 4:51 AM 018 5:14 (specimen) EST AM EST Resulting Agency Comment Spec In Lab Yonathan Smith MD HEMATOLOGY ORDERABLES Performing Organization Address City/State/[place] [address] (ABNORMAL) Hemogram (08/08/2017 4:51 AM EST) Analysis Performed At Patho logist Time Signature WBC 10.5 (H) 4.0 - 9.5 [facility] x10(3)/[facility] LABORATORY RBC 3.27 (L) 4.58 - [facility] 5.54 [facility] x10(6)/[facility] LABORATORY Hemoglobin 9.3 (L) 13.7 - [facility] 16.5 gm/dL [facility] Hematocrit 30.3 (L) 40.5 - [facility] 48.5 % [facility] MCV 92.7 82.9 - [facility] 93.1 [facility] LABORATORY MCH 28.4 27.5 - [facility] 32.1 pg [facility] MCHC 30.7 (L) 32.0 - [place] 35.7 gm/dL [facility] Platelets 252 145 - 357 [facility] x10(3)/[facility] LABORATORY RDWSD 54.6 (H) 36.0 - [facility] 45.0 [facility] LABORATORY RDWCV 16.2 (H) 11.4 - [facility] 13.8 % [facility] MPV 9.1 7.6 - 12.9 [facility] LABORATORY nRBC % Auto 0.0 % [facility] nRBC Abs Auto 0.000 0.000 - [facility] 0.000 [facility] x10(3)/[facility] LABORATORY Specimen Anatomical Collection Method Collection Time Receive d Time (Source) Location / / Volume Laterality Blood specimen 08/08/2017 4:51 AM 018 5:14 (specimen) EST AM EST Resulting Agency Comment Spec In Lab Yonathan Smith MD HEMATOLOGY ORDERABLES Performing Organization Address City/State/[place] [address] (ABNORMAL) Prothrombin Time (08/08/2017 4:51 AM EST) P athologist Signature PT 18.1 (H) 11.8 - 14.0 [facility] LABORATORY INR 1.5 (H) [...] Organization Address City/State/[place] [address] (ABNORMAL) Basic Metabolic Panel (non-fasting) (08/08/2017 4:51 AM EST) athologist Signature Glucose Lvl 229 (H) 65 - 199 [facility] mg/dL [facility] Comment: Diabetes: >=200 mg/dL plus symp toms BUN 35 (H) 10 - 20 mg/dL [facility] Creatinine 1.57 (H) 0.80 - 1.50 mg/dL [facility] Sodium 136 135 - 145 mmol/L [facility] Potassium 4.5 3.5 - 5.0 mmol/L [facility] [...] Calcium 7.9 (L) 8.5 - 10.5 mg/dL [facility] Estimated GFR 44 (L) >=60 [facility] Comment: The reported eGFR should be multiplied b y 1.2 for patients. The MDRD is not an appropriate measure o f renal function for patients with body mass extremes or in patients with acute kidney failure. http://[employer]/DHnkdep http://[employer]/DHMCnkf Specimen Anatomical Collection Method Collection Time Receive d Time (Source) Location / / Volume Laterality Blood specimen 08/08/2017 4:51 AM 018 5:14 (specimen) EST AM EST Resulting Agency Comment Spec In Lab Yonathan Smith MD CHEMISTRY ORDERABLES Performing Organization Address City/State/ZIP Code Phon e Number [address] POCT Glucose (08/08/2017 4:20 AM EST) athologist Signature POC Glucose 193 65 - 199 [facility]dL [facility] Comment: Supplemental ranges: <140 mg/dL before meals <180 mg/dL all other times of the day Specimen Anatomical Collection Method Collection Time Receive d Time (Source) Location / / Volume Laterality Blood specimen 08/08/2017 4:20 AM 018 4:20 (specimen) EST AM EST Yonathan Smith MD POINT OF CARE TEST ORDERABLE S Performing Organization Address City/[facility]/ZIP Code Phon e Number [address] POCT Glucose (08/07/2017 11:11 PM EST) athologist Signature POC Glucose 124 65 - 199 [facility]/dL [facility] Comment: Supplemental ranges: <140 mg/dL before meals <180 mg/dL all other times of the day Specimen Anatomical Collection Method Collection Time Receive d Time (Source) Location / / Volume Laterality Blood specimen 08/07/2017 11:11 8 (specimen) PM EST 11:11 PM EST Yonathan Smith MD POINT OF CARE TEST ORDERABLE S Performing Organization Address City/State/[place] [address] (ABNORMAL) APTT (08/07/2017 10:18 PM EST) athologist Signature PTT 114 (H) 25 - 35 sec [facility] Comment: The recommended therapeutic range for fu ll dose, unfractionated heparin at [facility] is 80 ? 114 seconds. The use [...] Smith MD HEMATOLOGY ORDERABLES Performing Organization Address City/[facility]/ZIP Code Phon e Number [address] POCT Glucose (08/07/2017 8:10 PM EST) athologist Signature POC Glucose 140 65 - 199 [facility] mg/dL [facility] Comment: Supplemental ranges: <140 mg/dL before meals <180 mg/dL all other times of the day Specimen Anatomical Collection Method Collection Time Receive d Time (Source) Location / / Volume Laterality Blood specimen 08/07/2017 8:10 PM 018 8:10 (specimen) EST PM EST Yonathan Smith MD POINT OF CARE TEST ORDERABLE S Performing Organization Address City/[facility]/ZIP Code Phon e Number [address] POCT Glucose (08/07/2017 5:27 PM EST) athologist Signature POC Glucose 187 65 - 199 [facility]/dL [facility] Comment: Supplemental ranges: <140 mg/dL before meals <180 mg/dL all other times of the day Specimen Anatomical Collection Method Collection Time Receive d Time (Source) Location / / Volume Laterality Blood specimen 08/07/2017 5:27 PM 018 5:27 (specimen) EST PM EST Yonathan Smith MD POINT OF CARE TEST ORDERABLE S Performing Organization Address City/[facility]/ZIP Code Phon e Number [address] POCT Glucose (08/07/2017 3:29 PM EST) athologist Signature POC Glucose 86 65 - 199 [place] mg/dL [facility] Comment: Supplemental ranges: <140 mg/dL before meals <180 mg/dL all other times of the day Specimen Anatomical Collection Method Collection Time Receive d Time (Source) Location / / Volume Laterality Blood specimen 08/07/2017 3:29 PM 018 3:29 (specimen) EST PM EST Yonathan Smith MD POINT OF CARE TEST ORDERABLE S Performing Organization Address City/[facility]/[place] [address] (ABNORMAL) APTT (08/07/2017 2:50 PM EST) athologist Signature PTT 60 (H) 25 - 35 sec [facility] Comment: The recommended therapeutic range for fu ll dose, unfractionated heparin at [facility] is 80 ? 114 seconds. The use [...] Smith MD HEMATOLOGY ORDERABLES Performing Organization Address City/[facility]/[place] [address] (ABNORMAL) POCT Glucose (08/07/2017 2:23 PM EST) athologist Signature POC Glucose 55 (L) 65 - 199 [facility] Comment: Supplemental ranges: <140 mg/dL before meals <180 mg/dL all other times of the day Specimen Anatomical Collection Method Collection Time Receive d Time (Source) Location / / Volume Laterality Blood specimen 08/07/2017 2:23 PM 018 2:23 (specimen) EST PM EST Yonathan Smith MD POINT OF CARE TEST ORDERABLE S Performing Organization Address City/[facility]/ZIP Code Phon e Number [address] POCT Glucose (08/07/2017 12:08 PM EST) athologist Signature POC Glucose 77 65 - 199 [facility] mg/dL [facility] Comment: Supplemental ranges: <140 mg/dL before meals <180 mg/dL all other times of the day Specimen Anatomical Collection Method Collection Time Receive d Time (Source) Location / / Volume Laterality Blood specimen 08/07/2017 12:08 8 (specimen) PM EST 12:08 PM EST Yonathan Smith MD POINT OF CARE TEST ORDERABLE S Performing Organization Address City/State/[place] [address] (ABNORMAL) Differential, Automated (08/07/2017 7:30 AM EST) [facility] Method Time Signature Neutrophils % 73.8 % [facility] Neutr Abs (ANC) 7.17 (H) 1.70 - [facility] 6.10 [facility] x10(3)/[facility] LABORATORY Lymphocytes % 12.2 % [facility] Lymphocytes Abs 1.2 0.9 - 3.2 [facility] x10(3)/[facility] LABORATORY Monocytes % 9.0 % [facility] Monocyte Abs 0.9 0.3 - 0.9 [facility] x10(3)/[facility] LABORATORY Eosinophils % 3.9 % [facility] Eosinophils Abs 0.4 0.0 - 0.4 [facility] x10(3)/[facility]ORATORY Basophils % 0.6 % [facility] Basophils Abs 0.1 0.0 - 0.1 [facility] x10(3)/[facility]ORATORY Immature Gran % 0.50 % [facility] [...] Gran Abs 0.05 (H) 0.00 - 0.04 x10(3)/[facility] LABORATORY Specimen Anatomical Collection Method Collection Time Receive d Time (Source) Location / / Volume Laterality Blood specimen 08/07/2017 7:30 AM 018 7:45 (specimen) EST AM EST Resulting Agency Comment Spec In Lab Yonathan Smith MD HEMATOLOGY ORDERABLES Performing Organization Address City/State/[place] [address] (ABNORMAL) Hemogram (08/07/2017 7:30 AM EST) Analysis Performed At Patho logist Time Signature WBC 9.7 (H) 4.0 - 9.5 [facility] LABORATORY RBC 3.54 (L) 4.58 - [facility] 5.54 [facility] x10(6)/[facility] LABORATORY Hemoglobin 9.9 (L) 13.7 - [facility] 16.5 gm/dL [facility] Hematocrit 32.3 (L) 40.5 - [facility] 48.5 % [facility] MCV 91.2 82.9 - [facility] 93.1 [facility]ORATORY MCH 28.0 27.5 - [facility] 32.1 pg [facility] MCHC 30.7 (L) 32.0 - [facility] 35.7 gm/dL [facility] Platelets 312 145 - 357 [facility] x10(3)/[facility] LABORATORY RDWSD 53.2 (H) 36.0 - [facility] 45.0 [facility] LABORATORY RDWCV 16.0 (H) 11.4 - [facility] 13.8 % [facility] MPV 8.9 7.6 - 12.9 [facility] LABORATORY nRBC % Auto 0.0 % [facility] nRBC Abs Auto 0.000 0.000 - [facility] 0.000 [facility] x10(3)/[facility] LABORATORY Specimen Anatomical Collection Method Collection Time Receive d Time (Source) Location / / Volume Laterality Blood specimen 08/07/2017 7:30 AM 018 7:45 (specimen) EST AM EST Resulting Agency Comment Spec In Lab Yonathan Smith MD HEMATOLOGY ORDERABLES Performing Organization Address City/State/[place] [address] (ABNORMAL) Basic Metabolic Panel (non-fasting) (08/07/2017 7:30 AM EST) athologist Signature Glucose Lvl 80 65 - 199 [facility] mg/dL [facility] Comment: Diabetes: >=200 mg/dL plus symp toms BUN 31 (H) 10 - 20 mg/dL [facility] Creatinine 1.22 0.80 - 1.50 mg/dL [facility] Sodium 140 135 - 145 mmol/L [facility] Potassium 4.5 3.5 - 5.0 mmol/L [facility] [...] mg/dL [facility] Estimated GFR 59 (L) >=60 [facility] Comment: The reported eGFR should be multiplied b y 1.2 for patients. The MDRD is not an appropriate measure o f renal function for patients with body mass extremes or in patients with acute kidney failure. http://[employer]/DHnkdep http://[employer]/DHMCnkf Specimen Anatomical Collection Method Collection Time Receive d Time (Source) Location / / Volume Laterality Blood specimen 08/07/2017 7:30 AM 018 7:45 (specimen) EST AM EST Resulting Agency Comment Spec In Lab Yonathan Smith MD CHEMISTRY ORDERABLES Performing Organization Address City/State/[place] [address] POCT Glucose (08/07/2017 7:27 AM EST) athologist Signature POC Glucose 81 65 - 199 [facility] mg/dL [facility] Comment: Supplemental ranges: <140 mg/dL before meals <180 mg/dL all other times of the day Specimen Anatomical Collection Method Collection Time Receive d Time (Source) Location / / Volume Laterality Blood specimen 08/07/2017 7:27 AM 018 7:27 (specimen) EST AM EST Yonathan Smith MD POINT OF CARE TEST ORDERABLE S Performing Organization Address City/[facility]/ZIP Code Phon e Number [address] APTT (08/07/2017 7:04 AM EST) athologist Signature PTT 34 25 - 35 sec [facility] Comment: The recommended therapeutic range for fu ll dose, unfractionated heparin at [facility] is 80 ? 114 seconds. The use [...] Smith MD HEMATOLOGY ORDERABLES Performing Organization Address City/[facility]/[place] [address] (ABNORMAL) Prothrombin Time (08/07/2017 7:04 AM EST) athologist Signature PT 17.3 (H) 11.8 - 14.0 [facility] LABORATORY INR 1.4 (H) [...] Smith MD HEMATOLOGY ORDERABLES Performing Organization Address City/[facility]/ZIP Code Phon e Number [address] POCT Glucose (08/07/2017 4:03 AM EST) athologist Signature POC Glucose 93 65 - 199 [facility] mg/dL [facility] Comment: Supplemental ranges: <140 mg/dL before meals <180 mg/dL all other times of the day Specimen Anatomical Collection Method Collection Time Receive d Time (Source) Location / / Volume Laterality Blood specimen 08/07/2017 4:03 AM 018 4:03 (specimen) EST AM EST Yonathan Smith MD POINT OF CARE TEST ORDERABLE S Performing Organization Address City/[facility]/ZIP Code Phon e Number [address] POCT Glucose (08/07/2017 12:04 AM EST) athologist Signature POC Glucose 107 65 - 199 [place] mg/dL [facility] Comment: Supplemental ranges: <140 mg/dL before meals <180 mg/dL all other times of the day Specimen Anatomical Collection Method Collection Time Receive d Time (Source) Location / / Volume Laterality Blood specimen 08/07/2017 12:04 8 (specimen) AM EST 12:04 AM EST Yonathan Smith MD POINT OF CARE TEST ORDERABLE S Performing Organization Address City/[facility]/ZIP Code Phon e Number [address] POCT Glucose (08/06/2017 7:56 PM EST) athologist Signature POC Glucose 178 65 - 199 [facility] mg/dL [facility] Comment: Supplemental ranges: <140 mg/dL before meals <180 mg/dL all other times of the day Specimen Anatomical Collection Method Collection Time Receive d Time (Source) Location / / Volume Laterality Blood specimen 08/06/2017 7:56 PM 018 7:56 (specimen) EST PM EST Yonathan Smith MD POINT OF CARE TEST ORDERABLE S Performing Organization Address City/State/ZIP Code [place] [address] TcPO2 (08/06/2017 2:32 PM EST) Component Value Ref Test Analysis Performed At [facility] gist Range Method Time Signature VB Text Department: Vascular Surgery Lab VASCUBASE Report Patient: [id number] (GREGORY HOANG) CPT: 0717111 ICD10: I99.8 Referring Physician: YONATHAN SMITH ?? [...]
Routine documented in this encounter Care Teams Retail Asset Protection Specialist Relationship Specialty Start Date End Date Lovely Vicente MD PCP - General 04/16/15 [address] [place] [address] documented as of this encounter
--- OUTSIDE RECORDS SUMMARY | 2022-02-23 08:56 | XMS_ITS | Encounter Summary ---
:1945 Author Organization [facility] [place] [address] Care Team Providers Name Role Phone Lovely Vicente MD Primary Care Provider Reason for Visit Reason Comments Foot Ulcer WOUND CHECK Auth/Cert Specialty Diagnoses / Procedures Referred By Contact Refer red To Contact Diagnoses Critical lower limb ischemia CELLULITIS RT FOOT Procedures EMERGENCY Referral ID Status Reason Start Date Expiration Date Visits Requ ested Visits Authorized [id number] 1 1 Encounter Details Date Type Department Care Team Description 08/06/2017 [facility] [place] [facility] [address] [place], [place] VASCULAR SURGERY [id number] [place] [address] [phone] Social History Tobacco Use Types Packs/Day Years [...] Smith MD - 08/06/2017 1:00 PM EST [facility] staff: 1. RIGHT leg CLI Interval Hx: [...] [facility] CARDIOLOGY [place], [place] [address] (Wo rk) documented as of this encounter Visit Diagnoses Diagnosis Critical lower limb ischemia Unspecified circulatory system disorder documented in this encounter Care Teams Staff Command And Control Officer Relationship Specialty Start Date End Date Lovely Vicente MD PCP - General 04/16/15 [address] [place] [address] documented as of this encounter
--- OUTSIDE RECORDS SUMMARY | 2022-02-23 08:56 | XMS_ITS | Encounter Summary ---
:1945 [place] [address] Care Team Providers Name Role Phone Lovely Vicente MD Primary Care Provider Encounter Details Date Type Department Care Team Description 07/29/2017 Telephone Pain Aurelia Crawford MD [facility] [place] [address] PAIN CLINIC [phone] [place], [place] [address] (Wo rk) Social History Tobacco [...] Vitaliy Nobles MD [facility] ER CARDIOLOGY [place], [place] [address] (Wo rk) documented as of this encounter Visit Diagnoses Not on filedocumented in this encounter Care Teams Atmospheric Technician Relationship Specialty Start Date End Date Lovely Vicente MD PCP - General 04/16/[address] [place] [address] documented as of this encounter
--- OUTSIDE RECORDS SUMMARY | 2022-02-23 08:56 | XMS_ITS | Encounter Summary ---
:1945 Author Organization [facility] [place] [address] Care Team Providers Name Role Phone Lovely Vicente MD Primary Care Provider Encounter Details Date Type Department Care Team Description 08/04/2017 Orders Only Cardiac Surgery Makayla Wilson APRN [facility] [place] [address] CARDIAC SURGERY [phone] [place], [place] [address] (Wo rk) Social History Tobacco [...] Nobles MD [facility] ER [address] [place], [place] [address] (Wo rk) documented as of this encounter Visit Diagnoses Not on filedocumented in this encounter Care Teams Senior It Architect Relationship Specialty Start Date End Date Lovely Vicente MD PCP - General 04/16/[address] [place] [address] documented as of this encounter
--- OUTSIDE RECORDS SUMMARY | 2022-02-23 08:56 | XMS_ITS | Encounter Summary ---
:1945 Author Organization [facility] Address [facility] [address] [place] [address] Care Team Providers Name Role Phone Lovely Vicente MD Primary Care Provider Reason for Visit Auth/Cert Specialty Diagnoses / Procedures Referred By Contact Refer red To Contact Diagnoses Critical lower limb ischemia CELLULITIS RT FOOT Procedures EMERGENCY Referral ID Status Reason Start Date Expiration Date Visits Requ ested Visits Authorized [id number] 1 1 Encounter Details Date Type Department Care Team Description 08/04/2017 Laboratory Lab 3L [place] Cardiomyopathy, unspecified type; Appointment [facility] Systolic congestive heart failure, unspecified congestive heart failure chronicity; Hospital Coronary artery rupture; [facility] Ischemic cardiomyopathy; Drive Atherosclerosis of [place] co ronary artery, angina presence unspecified, unspecified whether [place] or transplanted heart; [place], [place] Essential hyper tension, malignant; [phone] 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 PROTHROMBIN TIME Routine 08/04/2017 12:55 Coronary artery Resu lts for this PM EST rupture procedure are in Ischemic the results cardiomyopathy section. Atherosclerosis [place] coronary artery, angina presence unspecified, unspecified whether [place] or transplanted heart URIC ACID Routine 08/04/2017 [...] Signature Uric Acid 7.1 3.5 - 8.[address] [facility] mg/dL [facility]OR[facility]ORY Specimen Anatomical Collection Method Collection Time Receive d Time (Source) Location / / Volume Laterality Blood specimen 08/04/2017 12:55 8 1:01 (specimen) PM EST PM EST Resulting Agency Comment Spec In Lab Lovely Vicente MD CHEMISTRY ORDERABLES Performing Organization Address City/State/[place] [address] (ABNORMAL) Hemogram (08/04/2017 12:55 PM EST) Analysis Performed At Patho logist Time Signature WBC 15.8 (H) 4.0 - 9.[address] [facility] x10(3)/[facility] LABORATORY RBC 3.48 (L) 4.58 - [facility] 5.54 [facility] x10(6)/[facility] LABORATORY Hemoglobin 9.9 (L) 13.7 - [facility] 16.5 gm/dL [facility] Hematocrit 31.4 (L) 40.5 - [facility] 48.5 % [facility] MCV 90.2 82.9 - [facility] 93.1 [facility] LABORATORY MCH 28.4 27.5 - [facility] 32.1 pg [facility] MCHC 31.5 (L) 32.0 - [facility] 35.7 gm/dL [facility] Platelets 310 145 - [address] [facility] x10(3)/[facility] LABORATORY RDWSD 51.8 (H) 36.0 - [facility] 45.0 [facility] LABORATORY RDWCV 15.8 (H) 11.4 - [facility] 13.8 % [facility] LABORATORY MPV 8.9 7.6 - 12.9 [facility] LABORATORY nRBC % Auto 0.0 % [facility] LABORATORY nRBC Abs Auto 0.000 0.000 - [facility] 0.000 [facility] x10(3)/[facility] LABORATORY Specimen Anatomical Collection Method Collection Time Receive d Time (Source) Location / / Volume Laterality Blood specimen 08/04/2017 12:55 8 1:01 (specimen) PM EST PM EST Resulting Agency Comment Spec In Lab Lovely Vicente MD HEMATOLOGY ORDERABLES Performing Organization Address City/State/[place] [address] (ABNORMAL) Comprehensive metabolic panel (non-fasting) (08/04/2017 12:55 PM EST) P athologist Signature Glucose Lvl 208 (H) 65 - [address] [facility] mg/dL [facility] Comment: Diabetes: >=200 mg/dL plus symp toms BUN 32 (H) 10 - 20 mg/dL [facility] Creatinine 1.58 (H) 0.80 - 1.50 mg/dL [facility] Sodium 136 135 - 145 mmol/L [facility] Potassium 5.5 (H) 3.5 - 5.0 mmol/L [facility] [...] 15 mmol/L [facility] Calcium 8.6 8.5 - 10.5 mg/dL [facility] Total Protein 6.9 6.1 - 8.0 gm/dL [facility] LABOR[facility]ORY Albumin 3.4 3.2 - 5.2 gm/dL [facility] LABORATORY AST 20 0 - 39 unit/L [facility] ALT 21 0 - 55 unit/L [facility] Alk Phos 93 40 - 120 unit/L [facility] LABORATORY Total Bilirubin 0.4 0.2 - 1.3 mg/dL [facility] LABORATORY Estimated GFR 43 (L) >=60 [facility] Comment: The reported eGFR should be multiplied b y 1.2 for patients. The MDRD is not an appropriate measure o f renal function for patients with body mass extremes or in patients with acute kidney failure. http://[employer].Earth Networks/DHnkdep http://VideoBurst/DHMCnkf Specimen Anatomical Collection Method Collection Time Receive d Time (Source) Location / / Volume Laterality Blood specimen 08/04/2017 12:55 8 1:01 (specimen) PM EST PM EST Resulting Agency Comment Spec In Lab Lovely Vicente MD CHEMISTRY ORDERABLES Performing Organization Address City/State/[place] [address] (ABNORMAL) Hemoglobin A1c (08/04/2017 12:55 PM EST) Analysis Performed At Patho logist Time Signature Hemoglobin A1C 6.2 (H) 4.3 - 5.6 [facility] LABOR[facility]ORY Comment: Reference Range: 4.3 - [...] S67-74 Est Avg Gluc See note mg/dL [facility] Comment: Estimated Average Glucose not appropriat [...] with hemoglobinopathies. Additional resources are available on [facility] ADA website. Macario HAMMOND, Ruthann J, Deysi R, et al. ??Tr anslating the A1C assay into estimated average glucose values. ??Diabetes Care 2008:31(8):0263-1450. Specimen Anatomical Collection Method Collection Time Receive d Time (Source) Location / / Volume Laterality Blood specimen 08/04/2017 12:55 8 1:01 (specimen) PM EST PM EST Resulting Agency Comment Spec In Lab Lovely Vicente MD CHEMISTRY ORDERABLES Performing Organization Address City/State/[place] [address] (ABNORMAL) Prothrombin Time (08/04/2017 [...] Vicente MD HEMATOLOGY ORDERABLES Performing Organization Address City/[facility]/ZIP [place] [address] (ABNORMAL) pro-Brain Natriuretic Peptide (08/04/2017 12:55 PM EST) P athologist Signature ProBNP 3,133 (H) <=125 [facility] pg/mL [facility] Specimen Anatomical Collection Method Collection Time Receive d Time (Source) Location / / Volume Laterality Blood specimen 08/04/2017 12:55 8 1:01 (specimen) PM EST PM EST Resulting Agency Comment Spec In Lab Danette Maxwell APRN CHEMISTRY ORDERABLES Performing Organization Address City/State/ZIP [place] [address] documented in this encounter [...] underlying cond ition with diabetic nephropathy, unspecified vermin exterminator insulin use status documented in this encounter Care Teams Wellness Nurse Rn Relationship Specialty Start Date End Date Lovely iVcente MD PCP - General 04/16/[address] [place] [address] documented as of this encounter
--- OUTSIDE RECORDS SUMMARY | 2022-02-23 08:56 | XMS_ITS | Encounter Summary ---
:1945 [place] [address] Care Team Providers Name Role Phone Lovely Vicente MD Primary Care Provider Encounter Details Date Type Department Care Team Description 08/05/2017 Notes Only Vascular Surgery at [facility] [place], [place] [address] VASCULAR SURGERY [phone] [place], [place] [address] (Wo rk) Social History Tobacco [...] MD [facility] ER CARDIOLOGY [place], [place] [address] (Wo rk) documented as of this encounter Visit Diagnoses Not on filedocumented in this encounter Care Teams Guest Associate Relationship Specialty Start Date End Date Lovely Vicente MD PCP - General 04/16/[address] [place] [address] documented as of this encounter
--- OUTSIDE RECORDS SUMMARY | 2022-02-23 08:56 | XMS_ITS | Encounter Summary ---
:1945 Author Organization [facility] [place] [address] Care Team Providers Name Role Phone Lovely Vicente MD Primary Care Provider Reason for Visit Reason Comments Follow-up Encounter Details Date Type Department Care Team Description 07/29/2017 Office Visit Cardiac Surgery at [facility] Yuan Retana MD S/P CABG x [address] [facility] [place] [address] CARDIOTHORACIC SURGERY [phone] [place], [place] [address] (Wo rk) Social History Tobacco [...] evaluation by vascular surgery. Yuan Retana MD [phone] documented in this encounter Plan of Treatment Upcoming Encounters Date Type Specialty Care Team Description 03/26/2022 Office Visit Cardiology Vitaliy Nobles MD [facility] CARDIOLOGY [place], [place] [address] (Wo rk) documented as of this encounter Visit Diagnoses Diagnosis S/P CABG x 3 Postsurgical aortocoronary bypass status documented in this encounter Care Teams In Room Dining Server Relationship Specialty Start Date End Date Lovely Vicente MD PCP - General 04/16/[address] [place] [address] documented as of this encounter
--- OUTSIDE RECORDS SUMMARY | 2022-02-23 08:56 | XMS_ITS | Encounter Summary ---
:1945 Author Organization [facility] [place] [address] Care Team Providers Name Role Phone Lovely Vicente MD Primary Care Provider Encounter Details Date Type Department Care Team Description 08/04/2017 Notes Only Cardiac Surgery Makayla Wilson APRN [facility] [place] [address] CARDIAC SURGERY [phone] [place] [address] (Wo rk) Social History Tobacco Use Types [...] MD [facility] ER CARDIOLOGY [place], [place] [address] (Wo rk) documented as of this encounter Visit Diagnoses Not on filedocumented in this encounter Care Teams Government Affairs Manager Relationship Specialty Start Date End Date Lovely Vicente MD PCP - General 04/16/[address] [place] [address] documented as of this encounter
--- OUTSIDE RECORDS SUMMARY | 2022-02-23 08:56 | XMS_ITS | Encounter Summary ---
:1945 [place] [address] Care Team Providers Name Role Phone Lovely Vicente MD Primary Care Provider Encounter Details Date Type Department Care Team Description 07/29/2017 Hospital Encounter Vascular Lab at Critic monica Huber lower limb [facility] [place] [phone] Social History Tobacco Use Types Packs/Day Years [...] [facility] ER CARDIOLOGY [place], [place] [address] (Wo rk) documented as of this encounter Visit Diagnoses Diagnosis Critical lower limb ischemia Unspecified circulatory system disorder documented in this encounter Care Teams Web Merchant Relationship Specialty Start Date End Date Lovely Vicente MD PCP - General 04/16/[address] [place] [address] documented as of this encounter
--- OUTSIDE RECORDS SUMMARY | 2022-02-23 08:56 | XMS_ITS | Encounter Summary ---
:1945 Author Organization [facility] [place] [address] Care Team Providers Name Role Phone Lovely Vicente MD Primary Care Provider Reason for Visit Auth/Cert Specialty Diagnoses / Procedures Referred By Contact Refer red To Contact Diagnoses Critical lower limb ischemia CELLULITIS RT FOOT Procedures EMERGENCY Referral ID Status Reason Start Date Expiration Date Visits Requ ested Visits Authorized [id number] 1 1 Encounter Details Date Type Department Care Team Description 08/06/2017 Hospital En[facility] [address] Social History Tobacco Use Types Packs/Day [...] Visit Cardiology Vitaliy Nobles MD [facility] MEDICAL [facility] ER CARDIOLOGY [place], [place] [address] (Wo rk) documented as of this encounter Visit Diagnoses Not on filedocumented in this encounter Care Teams Aadc Plans Staff Officer Relationship Specialty Start Date End Date Lovely Vicente MD PCP - General 04/16/[address] [place] [address] documented as of this encounter
--- OUTSIDE RECORDS SUMMARY | 2022-02-23 08:56 | XMS_ITS | Encounter Summary ---
:1945 Author Organization [facility] [place] [address] Care Team Providers Name Role Phone Lovely Vicente MD Primary Care Provider Encounter Details Date Type Department Care Team Description 08/02/2017 Telephone Pain Management at Angeles Bueno, [place] [address] Social History Tobacco Use Types Packs/Day [...] Management Center Preauthorization Request Patient: Don Fatima [id number] Fax received from [facility] requesting we obtain prior authorization for Lidocaine patches prescribed by Barbra Soares APRN. RX insurance plan: [employer] insurance telephone: [phone] Patient Diagnosis: right foot pain secondary to PVD and ischemia Previous medications attempted: Tylenol, Tramadol, Dilaudid The following action was taken after discussion with the service line coordinator: _x_ pharmacy informed Authorized dosage or amount: 5% on patch on for 12 hours, then remove for 12 hours. Angeles Rodrigez, RN documented in this encounter Plan of Treatment Upcoming Encounters Date Type Specialty Care Team Description 03/26/2022 Office Visit Cardiology Vitaliy Nobles MD [facility] ER CARDIOLOGY [place], [place] [address] (Wo rk) documented as of this encounter Visit Diagnoses Not on filedocumented in this encounter Care Teams Power Wheelchair Mechanic Relationship Specialty Start Date End Date Lovely Vicente MD PCP - General 04/16/[address] [place] [address] documented as of this encounter
--- OUTSIDE RECORDS SUMMARY | 2022-02-23 08:56 | XMS_ITS | Encounter Summary ---
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 Patient [...] HEALTHCARE SYSTEM MAIN OR ??? PRO COLONOSCOPY, REMFlash MOCK, SNARE 01/16/2014 COLONOSCOPY, POLYPECTOMY, REMOVAL LESION BY SNARE performed by Nohemi Jaimes MD at [facility] ENDOSCOPY ??? PRO ENDOSCOPY W/VIDEO-ASST VEIN HARVEST, CABG Right 07/07/2017 ENDOSCOPIC HARVEST VEIN(S) FOR CABG (WRVU 0.31) performed by Yuan Retana MD at [facility] MAIN OR ??? 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 Hank Zhang Vascular Surgery, PGY2 Pager #[phone] Associated attestation - Arik Clement MD - [...] Visit Cardiology Vitaliy Nobles MD [facility] ER CARDIOLOGY [place], [place] [address] (Wo rk) documented as of [...] Ref Test Analysis Performed At [facility] Range Method Time Signature VB Text Department: Vascular Surgery Lab VASCUBASE Report Patient: [id number] (GREGORY FATIMA) CPT: 14489 ICD10: I82.541 Referring Physician: TAMIKO JIMÉNEZ ?? [...] Signature POC Glucose 128 65 - 199 [facility] mg/dL [facility] Comment: Supplemental ranges: <140 mg/dL before meals <180 mg/dL all other times of the day Specimen Anatomical Collection Method Collection Time Receive d Time (Source) Location / / Volume Laterality Blood specimen 07/29/2017 2:28 PM 018 2:28 (specimen) EST PM EST Tamiko Jiménez MD POINT OF CARE TEST ORDERABLE S Performing Organization Address City/[facility]/ZIP Code Phon e Number [place] [id number] (ABNORMAL) D-Dimer, Quantitative (07/29/2017 2:15 PM EST) [facility] AnyMeeting Method Time Signature D-Dimer, Quant 1,699 (H) 0 - 500 [facility] FEU ng/ml [facility] Comment: The D-Dimer assay is [...] Organization Address City/State/[place] [address] (ABNORMAL) Differential, Automated (07/29/2017 2:15 PM EST) [facility] Method Time Signature Neutrophils % 82.5 % [facility] Neutr Abs (ANC) 10.21 (H) 1.70 - [facility] 6.10 [facility] x10(3)/[facility] LABORATORY Lymphocytes % 7.1 % [facility] Lymphocytes Abs 0.9 0.9 - 3.2 [facility] x10(3)/[facility] LABORATORY Monocytes % 6.5 % [facility] Monocyte Abs 0.8 0.3 - 0.9 [facility] x10(3)/[facility] LABORATORY Eosinophils % 2.7 % [facility] Eosinophils Abs 0.3 0.0 - 0.4 [facility] x10(3)/[facility] LABORATORY Basophils % 0.6 % [facility] Basophils Abs 0.1 0.0 - 0.1 [facility] x10(3)/[facility] LABORATORY Immature Gran % 0.60 % [facility] Comment: Immature granulocytes(IG's)percentage an d absolute count will include metamyelocytes, myelocytes, and promyelo cytes. Blood smears from CBCs yielding IG's will be scanned manually for lora danhaley. If this scan disagrees with the automated IG or if promyelocytes are not ed, a manual differential will be performed. Melisa Gran Abs 0.08 (H) 0.00 - 0.04 x10(3)/[facility] LABORATORY Specimen Anatomical Collection Method Collection Time Receive d Time (Source) Location / / Volume Laterality Blood specimen 07/29/2017 2:15 PM 018 2:36 (specimen) EST PM EST Resulting Agency Comment Spec In Lab Tamiko Jiménez MD HEMATOLOGY ORDERABLES Performing Organization Address City/State/ZIP Code Phon e Number [place] [id number] (ABNORMAL) Hemogram (07/29/2017 2:15 PM EST) Analysis Performed At Patho logist Time Signature WBC 12.4 (H) 4.0 - 9.5 [facility] x10(3)/[facility] LABORATORY RBC 4.17 (L) 4.58 - [facility] 5.54 [facility] x10(6)/[facility] LABORATORY Hemoglobin 12.1 (L) 13.7 - [facility] 16.5 gm/dL [facility] Hematocrit 38.1 (L) 40.5 - [facility] 48.5 % [facility] MCV 91.4 82.9 - [facility] 93.[address] [facility] LABORATORY MCH 29.0 27.5 - [facility] 32.1 pg [facility] MCHC 31.8 (L) 32.0 - [facility] 35.7 gm/dL [facility] Platelets 204 145 - 357 [facility] x10(3)/[facility] LABORATORY RDWSD 50.5 (H) 36.0 - [facility] 45.0 [facility] LABORATORY RDWCV 15.3 (H) 11.4 - [facility] 13.8 % [facility] MPV 9.4 7.6 - 12.9 [facility] LABORATORY nRBC % Auto 0.0 % [facility] nRBC Abs Auto 0.000 0.000 - [facility] 0.000 [facility] x10(3)/[facility] LABORATORY Specimen Anatomical Collection Method Collection Time Receive d Time (Source) Location / / Volume Laterality Blood specimen 07/29/2017 2:15 PM 018 2:36 (specimen) EST PM EST Resulting Agency Comment Spec In Lab Tamiko Jiménez MD HEMATOLOGY ORDERABLES Performing Organization Address City/[facility]/ZIP Code Phon e Number [place] [phone] (ABNORMAL) Prothrombin Time (07/29/2017 2:15 PM EST) P athologist Signature PT 24.4 (H) 11.8 - 14.0 [facility] LABORATORY INR 2.2 (H) 0.9 - 1.1 [facility] Comment: An INR <2.0 [...] MD HEMATOLOGY ORDERABLES Performing Organization Address City/[facility]/ZIP [place] [address] Arterial Duplex Leg, Unil (07/29/2017 11:50 AM EST) Component Value Ref Test Analysis Performed At Patholo gist Range Method Time Signature VB Text Department: Vascular Surgery Lab VASCUBASE Report Patient: [id number] (GREGORY FATIMA) CPT: 81098 ICD10: Z09;I97.610 Referring Physician: TAMIKO JIMÉNEZ ?? [...] Ref Test Analysis Performed At [facility] Range Method Time Signature VB Text Department: Vascular Surgery Lab VASCUBASE Report Patient: [id number] (GREGORY FATIMA) CPT: 98769 ICD10: I82.441 Referring Physician: TAMIKO JIMÉNEZ ?? [...] he calf. Notification: Marquis Pathak MD (pager #[phone]) was notif ied of the preliminary findings. [...] STAT documented in this encounter Care Teams Rn Gynecology Relationship Specialty Start Date End Date Lovely Vicente MD PCP - General 04/16/[address] [facility] [place] [address] documented as of this encounter
--- OUTSIDE RECORDS SUMMARY | 2022-02-23 08:56 | XMS_ITS | Encounter Summary ---
:1945 [place] [address] Care Team Providers Name Role Phone Lovely Vicente MD Primary Care Provider Encounter Details Date Type Department Care Team Description 08/04/2017 Notes Only Pain Management at Barbra Bruno, [facility] [place] [address] [place] [address] [phone] (Wo rk) Social History Tobacco Use Types [...] bid) at this time. Barbra Soares, MSN, COMMERCIAL STRIPPER-BC, [facility] Pain [facility] Clinic documented in this encounter Plan of Treatment Upcoming Encounters Date Type Specialty Care Team Description 03/26/2022 Office Visit Cardiology Vitaliy Nobles MD [facility] ER CARDIOLOGY [place], [place] [address] (Wo rk) documented as of this encounter Visit Diagnoses Not on filedocumented in this encounter Care Teams Die Maker Apprentice Relationship Specialty Start Date End Date Lovely Vicente MD PCP - General 04/16/[address] [place] [address] documented as of this encounter
--- OUTSIDE RECORDS SUMMARY | 2022-02-23 08:56 | XMS_ITS | Encounter Summary ---
:1945 Author Organization [facility] [place] [address] Care Team Providers Name Role Phone Lovely Vicente MD Primary Care Provider Reason for Visit Auth/Cert Specialty Diagnoses / Procedures Referred By Contact Refer red To Contact Diagnoses Critical lower limb ischemia CELLULITIS RT FOOT Procedures EMERGENCY Referral ID Status Reason Start Date Expiration Date Visits Requ ested Visits Authorized [id number] 1 1 Encounter Details Date Type Department Care Team Description 08/04/2017 Office Visit Cardiology at [facility] Danette Maxwell Incisional pain; 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 [...] [facility] ER CARDIOLOGY [place], [place] [address] (Wo rk) documented as of [...] Daniele gutiérrez 08/04/2017 4:13 PM Danette Maxwell MATTRESS INSPECTOR IMG DX ORDERABLES documented in this encounter Visit Diagnoses Diagnosis Incisional pain Disturbance of skin sensation Ischemic cardiomyopathy Other specified forms of chronic ischemi c heart disease ASCVD (arteriosclerotic cardiovascular d isease) Unspecified cardiovascular disease Systolic heart failure, unspecified hear t failure chronicity Incisional pain Disturbance of skin sensation documented in this encounter Care Teams Manufacturing Technology Analyst Relationship Specialty Start Date End Date Lovely Vicente MD PCP - General 04/16/[address] [place] [address] [address] [place] [address] documented as of this encounter
--- OUTSIDE RECORDS SUMMARY | 2022-02-23 08:56 | XMS_ITS | Encounter Summary ---
:1945 Author Organization [facility] Address [facility] [place] [address] Care Team Providers Name Role Phone Lovely Vicente MD Primary Care Provider Encounter Details Date Type Department Care Team Description 07/29/2017 Transcribe Orders Laboratory Lovely Vicente, Coronary artery rupture; [facility] Ischemic cardiomyopathy; [facility] [address] Atherosclerosis of [place] co ronary artery, angina presence unspecified, unspecified whether [place] or transplanted heart; [place], [place] [address] Essential hypertension, malignant; [address] [place], [place] 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, unspecified mcfp insulin use status [phone] [id number] Social History Tobacco Use Types Packs/Day Years [...] MD [facility] ER CARDIOLOGY [place], [place] [address] (Wo rk) Scheduled Orders Name Type Priority Associated Diagnoses Order S chedule Lab Use Only, Fax Lab Routine Coronary arter y rupture Expected: 07/29/2017 Request Ischemic cardiom yopathy (Approximate), Atherosclerosis of [place] Ex jose: 07/29/2018 coronary artery, angina presence unspecified, unspecified whether [place] or transplanted heart Essential hypertension, malignant documented as of this encounter Results Uric acid (08/04/2017 12:55 PM EST) P athologist Signature Uric Acid 7.1 3.5 - 8.5 [place] mg/dL [facility] LABORATORY Specimen Anatomical Collection Method Collection Time Receive d Time (Source) Location / / Volume Laterality Blood specimen 08/04/2017 12:55 8 1:01 (specimen) PM EST PM EST Resulting Agency Comment Spec In Lab Lovely Vicente MD CHEMISTRY ORDERABLES Performing Organization Address City/State/[place] [address] (ABNORMAL) Hemogram (08/04/2017 12:55 PM EST) Analysis Performed At Patho logist Time Signature WBC 15.8 (H) 4.0 - 9.5 [place] x10(3)/[facility] LABORATORY RBC 3.48 (L) 4.58 - [place] 5.54 [facility] x10(6)/[facility] LABORATORY Hemoglobin 9.9 (L) 13.7 - [place] 16.5 gm/dL [facility] LABORATORY Hematocrit 31.4 (L) 40.5 - [place] 48.5 % [facility] LABORATORY MCV 90.2 82.9 - [place] 93.[address] [facility] LABORATORY MCH 28.4 27.5 - [place] 32.1 pg [facility] LABORATORY MCHC 31.5 (L) 32.0 - [place] 35.7 gm/dL [facility] LABORATORY Platelets 310 145 - 357 [place] x10(3)/[facility] LABORATORY RDWSD 51.8 (H) 36.0 - [place] 45.[address] [facility] LABORATORY RDWCV 15.8 (H) 11.4 - [place] 13.8 % [facility] LABORATORY MPV 8.9 7.6 - 12.9 [facility] LABORATORY nRBC % Auto 0.0 % [facility] LABORATORY nRBC Abs Auto 0.000 0.000 - [facility] 0.000 [facility] x10(3)/[facility] LABORATORY Specimen Anatomical Collection Method Collection Time Receive d Time (Source) Location / / Volume Laterality Blood specimen 08/04/2017 12:55 8 1:01 (specimen) PM EST PM EST Resulting Agency Comment Spec In Lab Lovely Vicente MD HEMATOLOGY ORDERABLES Performing Organization Address City/State/[place] [address] (ABNORMAL) Comprehensive metabolic panel (non-fasting) (08/04/2017 12:55 PM EST) P athologist Signature Glucose Lvl 208 (H) 65 - 199 [facility] mg/dL [facility] Comment: Diabetes: >=200 mg/dL plus symp toms BUN 32 (H) 10 - 20 mg/dL [facility]ORY Creatinine 1.58 (H) 0.80 - 1.50 mg/dL [facility] Sodium 136 135 - 145 mmol/L [facility] Potassium 5.5 (H) 3.5 - 5.0 mmol/L [facility] [...] 8.5 - 10.5 mg/dL [facility] Total Protein 6.9 6.1 - 8.0 gm/dL [facility] LABORATORY Albumin 3.4 3.2 - 5.2 gm/dL [facility] LABOR[facility] AST 20 0 - 39 unit/L [facility] ALT 21 0 - 55 unit/L [facility] Alk Phos 93 40 - 120 unit/L [facility] Total Bilirubin 0.4 0.2 - 1.3 mg/dL [facility] LABORATORY Estimated GFR 43 (L) >=60 [facility] Comment: The reported eGFR should be multiplied b y 1.2 for patients. The MDRD is not an appropriate measure o f renal function for patients with body mass extremes or in patients with acute kidney failure. http://PharmatrophiX/DHnkdep http://PharmatrophiX/DHMCnkf Specimen Anatomical Collection Method Collection Time Receive d Time (Source) Location / / Volume Laterality Blood specimen 08/04/2017 12:55 8 1:01 (specimen) PM EST PM EST Resulting Agency Comment Spec In Lab Lovely Vicente MD CHEMISTRY ORDERABLES Performing Organization Address City/State/[place] [address] (ABNORMAL) Hemoglobin A1c (08/04/2017 12:55 PM EST) [facility] Time Signature Hemoglobin A1C 6.2 [...] [id number] Est Avg Gluc See note mg/dL [facility] Comment: Estimated Average Glucose [...] with hemoglobinopathies. Additional resources are available on [facility] ADA website. Macario HAMMOND, Ruthann J, Deysi R, et al. ??Tr anslating the A1C assay into estimated average glucose values. ??Diabetes Care 2008:31(8):6337-9750. Specimen Anatomical Collection Method Collection Time Receive d Time (Source) Location / / Volume Laterality Blood specimen 08/04/2017 12:55 8 1:01 (specimen) PM EST PM EST Resulting Agency Comment Spec In Lab Lovely Vicente MD CHEMISTRY ORDERABLES Performing Organization Address City/State/[place] [address] (ABNORMAL) Prothrombin Time (08/04/2017 12:55 PM EST) P athologist Signature PT 35.4 (H) 11.8 - 14.0 [facility] LABORATORY INR 3.5 (H) 0.9 - [...] Organization Address City/State/[place] [address] documented in this encounter Visit Diagnoses Diagnosis Coronary artery rupture Acute myocardial infarction, unspecified site, episode of care unspecified Ischemic cardiomyopathy Other specified forms of chronic ischemi c heart disease Atherosclerosis of [place] coronary arter y, angina presence unspecified, unspecified whether [place] or transplanted heart Essential hypertension, malignant Diabetes mellitus due to underlying cond ition with diabetic nephropathy, unspecified mcfp insulin use status documented in this encounter Care Teams Lanolin Plant Operator Relationship Specialty Start Date End Date Lovely Vicente MD PCP - General 04/16/[address] [place] [address] documented as of this encounter
--- OUTSIDE RECORDS SUMMARY | 2022-02-23 08:56 | XMS_ITS | Encounter Summary ---
:1945 [place] [address] Care Team Providers Name Role Phone Lovely Vicente MD Primary Care Provider Encounter Details Date Type Department Care Team Description 08/03/2017 Hospital Encounter Radiology Library at [place], Tommy Mijares [facility] [address] VASCULAR SURGERY [phone] [place], [place] [address] (Wo rk) Social History Tobacco [...] Visit Cardiology Vitaliy Nobles MD [facility] ER CARDIOLOGY [place], [place] [address] (Wo rk) documented as [...] and is aut o-finalizing. Arik Clement MD [facility] FILM LIBRARY ORDERABLES Performing Organization Address City/State/ZIP Code Phon e Number [place], [place] documented in this encounter Visit Diagnoses Diagnosis Pain Generalized pain documented in this encounter Care Teams Guzzler Builder Relationship Specialty Start Date End Date Lovely Vicente MD PCP - General 04/16/[address] [place] [address] documented as of this encounter
--- OUTSIDE RECORDS SUMMARY | 2022-02-23 08:56 | XMS_ITS | Encounter Summary ---
:1945 Author Organization [facility] [place] [address] Care Team Providers Name Role Phone Lovely Vicente MD Primary Care Provider Reason for Visit Auth/Cert Specialty Diagnoses / Procedures Referred By Contact Refer red To Contact Diagnoses Critical lower limb ischemia CELLULITIS RT FOOT Procedures EMERGENCY Referral ID Status Reason Start Date Expiration Date Visits Requ ested Visits Authorized [id number] 1 1 Encounter Details Date Type Department Care Team Description 08/04/2017 Laboratory Appointment Lab [address] [place] [address] Social History Tobacco Use Types Packs/Day [...] MD [facility] ER CARDIOLOGY [place], [place] [address] (Wo rk) documented as of this encounter Visit Diagnoses Not on filedocumented in this encounter Care Teams Supervisor Green End Department Relationship Specialty Start Date End Date Lovely Vicente MD PCP - General 04/16/[address] [place] [address] documented as of this encounter
--- OUTSIDE RECORDS SUMMARY | 2022-02-23 08:56 | XMS_ITS | Encounter Summary ---
:1945 [place] [address] Care Team Providers Name Role Phone Lovely Vicente MD Primary Care Provider Reason for Visit Auth/Cert Specialty Diagnoses / Procedures Referred By Contact Refer red To Contact Diagnoses Critical lower limb ischemia CELLULITIS RT FOOT Procedures EMERGENCY Referral ID Status Reason Start Date Expiration Date Visits Requ ested Visits Authorized [id number] 1 1 Encounter Details Date Type Department Care Team Description 08/09/2017 Anesthesia Event Main Operating Room Daniele Lizama MD [facility] [place] [address] [facility] Rob Jones MD [facility] [place] [address] [place] [address] Anesthesia Record Procedure Summary Procedure Name [...] Knowles, Dory arm), right; VAMSI Rios, RN gyjo-sli-eizwta catheter system; 20 gauge; 08/16/17; 1047 PIV 07/29/17; 1413; median 07/29/17 1413 by 08/16/17 1047 by cubital vein (antecubital Magdalene Hickey Williams, Dory fossa), left; VAMSI Wyatt, RN awba-ztk-oxphku catheter system; 20 gauge; 08/16/17; 1047 PIV 08/06/17; 1742; cephalic 08/06/17 1742 by 0920 by vein (lateral side of Taylor Laureano Danah y, Caitlyn C, arm), right; VAMSI BONNER mpzj-svt-osdeef catheter system; 22 gauge, 1 in length; Eliseo LAUREANO RN VAS; distraction, intradermal injection, tolerated well, appears comfortable; 0; 08/16/17; 0920 Wound 08/07/17; 1335; knee; 08/07/17 1335 by 08/16/17 1047 by laceration; wound occured Barbara Albert iams, Dory INSURANCE ACCOUNT REPRESENTATIVE; 08/16/17; 1047 VAMSI Alonzo, RN PIV 08/07/17; 1734; cephalic 08/07/17 1734 by 1047 by vein (lateral side of Kendrick, Carlos W, Willia ms, Dory arm), left; MARCIE Wyatt RN drjy-jto-jntxeb catheter system; 22 gauge; distraction, intradermal injection, [...] - 08/09/2017 9:01 AM EST [facility]esthesiology Post-procedure Note Patient: Don Fatima Procedure Summary Date Anesthesia Start Anesthesia Stop Room / Location 08/09/17 0802 0901 [facility] OR 14 / [facility] MAIN OR Procedure Diagnosis Surgeon Responsible Provider AMPUTATION, 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 Nerve [...] SETUP performed by Manny Mcknight MD at [facility] MAIN OR ??? PRO CABG, ARTERIAL, SINGLE N/A 07/07/2017 @CABG, USING ARTERIAL GRAFT;SINGLE ARTERIAL GRAFT (WRVU 33.75) performed by Yuan Retana MD at [facility] MAIN OR ??? PRO CABG, ARTERY-VEIN, TWO N/A 07/07/2017 @CABG, TWO VENOUS GRAFTS & ARTERIAL GRAFT (WRVU 7.93) performed by Yuan Retana MD at [facility] MAIN OR ??? PRO COLONOSCOPY, REMV LESN, SNARE 01/16/2014 COLONOSCOPY, POLYPECTOMY, REMOVAL LESION BY SNARE performed by Nohemi Jaimes MD at [facility] ENDOSCOPY ??? PRO ENDOSCOPY W/VIDEO-ASST VEIN HARVEST, CABG Right 07/07/2017 ENDOSCOPIC HARVEST VEIN(S) FOR CABG (WRVU 0.31) performed by Yuan Retana MD at [facility] MAIN OR ??? PRO THYROIDECTOMY 03/28/2013 THYROIDECTOMY, TOTAL OR COMPLETE performed by Manny Mcknight MD at [facility] MAIN OR Social History Substance [...] adequate IV access. Brody Santillan MD PGY-2, Newspaper Copy Editor Pager #[phone] Anesthesiology Staff (Dewhirst): Pre-op summary note as [...] [facility] ER CARDIOLOGY [place] [address] (Wo rk) documented as of this [...] Length: 10 cm Gauge: 21 Needle Type: P-ihdni-jsfxp Medication injection made in crementally with aspirations. [...] Procedure) documented in this encounter Care Teams Equipment Associate Relationship Specialty Start Date End Date Lovely Vicente MD PCP - General 04/16/[address] [place] [address] documented as of this encounter
--- OUTSIDE RECORDS SUMMARY | 2022-02-23 08:56 | XMS_ITS | Encounter Summary ---
:1945 Author Organization [place] [address] Care Team Providers Name Role Phone Lovely Vicente MD Primary Care Provider Reason for Visit Reason Comments Deep Vein Thrombosis Auth/Cert Specialty Diagnoses / Procedures Referred By Contact Refer red To Contact Diagnoses Critical lower limb ischemia CELLULITIS RT FOOT Procedures EMERGENCY Referral ID Status Reason Start Date Expiration Date Visits Requ ested Visits Authorized [id number] 1 1 Encounter Details Date Type Department Care Team Description 08/04/2017 Office Visit Vascular Surgery at [facility] itical lower limb [facility] [place] [facility] [address] [place], [place] VASCULAR SURGERY [id number] [place] [address] [phone] Social History Tobacco Use Types Packs/Day Years [...] was discharged on Coumadin. ??[place] [facility] [place] with mottled [...] Vitaliy Nobles MD [facility] ER CARDIOLOGY [place], [place] [address] (Wo rk) documented as of this encounter Visit Diagnoses Diagnosis Critical lower limb ischemia Unspecified circulatory system disorder documented in this encounter Care Teams Venereal Disease Control Head Relationship Specialty Start Date End Date Lovely Vicente MD PCP - General 04/16/[address] [place] [address] documented as of this encounter
--- OUTSIDE RECORDS SUMMARY | 2022-02-23 08:56 | XMS_ITS | Encounter Summary ---
:1945 Author Organization [facility] [place] [address] Care Team Providers Name Role Phone Lovely Vicente MD Primary Care Provider Reason for Visit Auth/Cert Specialty Diagnoses / Procedures Referred By Contact Refer red To Contact Diagnoses Critical lower limb ischemia CELLULITIS RT FOOT Procedures EMERGENCY Referral ID Status Reason Start Date Expiration Date Visits Requ ested Visits Authorized [id number] 1 1 Encounter Details Date Type Department Care Team Description 08/06/2017 Laboratory Appointment Lab at [facility] Ischemia of [place] [address] Social History Tobacco Use Types Packs/Day [...] Nobles MD [facility] ER [address] [place], [place] [address] (Wo rk) documented as of [...] Signature Prealbumin 19 (L) 20 - 40 [facility] Comment: Prealbumin levels are [...] Organization Address City/State/[place] [address] (ABNORMAL) Basic Metabolic Panel (non-fasting) (08/06/2017 12:32 PM EST) P athologist Signature Glucose Lvl 92 65 - 199 [facility] mg/dL [facility] Comment: Diabetes: >=200 mg/dL plus symp toms BUN 29 (H) 10 - 20 mg/dL [facility] Creatinine 1.33 0.80 - 1.50 mg/dL [facility] [...] LABORATORY Calcium 8.5 8.5 - 10.5 mg/dL [facility] Estimated GFR 53 (L) >=60 KATALINA Wyatt [facility] Comment: The reported eGFR should be multiplied b y 1.2 for patients. The MDRD is not an appropriate measure o f renal function for patients with body mass extremes or in patients with acute kidney failure. http://FunnelFire/DHnkdep http://FunnelFire/DHMCnkf Specimen Anatomical Collection Method Collection Time Receive d Time (Source) Location / / Volume Laterality Blood specimen 08/06/2017 12:32 8 1:15 (specimen) PM EST PM EST Resulting Agency Comment Spec In Lab Arik Clement MD CHEMISTRY ORDERABLES Performing Organization Address City/State/[place] [address] (ABNORMAL) Hemogram (08/06/2017 12:32 PM EST) Analysis Performed At Patho logist Time Signature WBC 11.8 (H) 4.0 - 9.5 KATALINA RYAN x10(3)/[facility] LABORATORY RBC 3.49 (L) 4.58 - KATALINA RYAN 5.[address] [facility] x10(6)/[facility] LABORATORY Hemoglobin 9.9 (L) 13.7 - KATALINA RYAN 16.5 gm/dL [facility] Hematocrit 32.0 (L) 40.5 - KATALINA RYAN 48.5 % [facility] MCV 91.7 82.9 - KATALINA RYAN 93.1 [facility] LABORATORY MCH 28.4 27.5 - Intersect ENTRYAN 32.1 pg [facility] MCHC 30.9 (L) 32.0 - KATALINA RYAN 35.7 gm/dL [facility] Platelets 326 145 - 357 KATALINA RYAN x10(3)/[facility] LABORATORY RDWSD 53.4 (H) 36.0 - Intersect ENTRYAN 45.0 [facility] LABORATORY RDWCV 16.0 (H) 11.4 - KATALINA RYAN 13.8 % [facility] MPV 9.1 7.6 - 12.9 KATALINA [facility] LABORATORY nRBC % Auto 0.0 % [facility] LABORATORY nRBC Abs Auto 0.000 0.000 - [facility] 0.[address] [facility] x10(3)/[facility] LABORATORY Specimen Anatomical Collection Method Collection Time Receive d Time (Source) Location / / Volume Laterality Blood specimen 08/06/2017 12:32 8 1:15 (specimen) PM EST PM EST Resulting Agency Comment Spec In Lab Arik Clement MD HEMATOLOGY ORDERABLES Performing Organization Address City/State/[place] [address] documented in this encounter Visit Diagnoses Diagnosis Ischemia of foot Unspecified circulatory system disorder documented in this encounter Care Teams Farmworker [employer] Relationship Specialty Start Date End Date Lovely Vicente MD PCP - General 04/16/[address] [place] [address] documented as of this encounter
--- OUTSIDE RECORDS SUMMARY | 2022-02-23 08:56 | XMS_ITS | Encounter Summary ---
:1945 Author Organization [facility] [place] [address] Care Team Providers Name Role Phone Lovely Vicente MD Primary Care Provider Encounter Details Date Type Department Care Team Description 08/04/2017 Orders Only Cardiac Surgery Makayla Wilson APRN [facility] [place] [address] CARDIAC SURGERY [phone] [place], [place] [address] (Wo rk) Social History Tobacco [...] Nobles MD [facility] ER DR [place]LE [place], [place] [address] (Wo rk) documented as of this encounter Visit Diagnoses Not on filedocumented in this encounter Care Teams Trip Follower Relationship Specialty Start Date End Date Lovely Vicente MD PCP - General 04/16/[address] [place] [address] documented as of this encounter
--- OUTSIDE RECORDS SUMMARY | 2022-02-23 08:56 | XMS_ITS | Encounter Summary ---
:1945 Author Organization [facility] [place] [address] Care Team Providers Name Role Phone Lovely Vicente MD Primary Care Provider Encounter Details Date Type Department Care Team Description 07/29/2017 Transcribe Orders Laboratory Lovely Vicente MD [place] [address] [employer] [address] [address] [place], [place] [id number] (Wo rk) Social History Tobacco Use Types [...] Nobles MD [facility] ER CARDIOLOGY [place], [place] [address] (Wo rk) documented as of this encounter Visit Diagnoses Not on filedocumented in this encounter Care Teams Dining Room Hostess Relationship Specialty Start Date End Date Lovely Vicente MD PCP - General 04/16/15 [facility] exsulin [address] [address] documented as of this encounter
--- OUTSIDE RECORDS SUMMARY | 2022-02-23 08:56 | XMS_ITS | Encounter Summary ---
:1945 Author Organization [place] [address] Care Team Providers Name Role Phone Lovely Vicente MD Primary Care Provider Reason for Visit Reason Comments Pain Management Ankle Pain Toe Pain Encounter Details Date Type Department Care Team Description 07/30/2017 Office Visit Pain Management at Barbra Soares, Per ipheral neuropathy [employer] PRODUCT DEVELOPMENT INTERN due to ischemia [facility] [address], [place], [place] [phone] Social History Tobacco Use Types Packs/Day Years [...] Soares APRN - 07/30/2017 1:[address] [facility] [place] [address] Phone: PAIN MANAGEMENT NEW PATIENT / CONSULTATION NOTE DATE OF VISIT 07/30/2017 Patient Don Fatima 1945 REFERRING PROVIDER Lovely Vicente MD [address] [place] [address] PRIMARY CARE PROVIDER Lovely Vicente MD CHIEF [...] much relief PAST THERAPIES: Nothing MEDICATIONS The [place] Prescription Monitoring Program was checked and no [...] SNARE performed by Nohemi Jaimes MD at [facility] ENDOSCOPY ??? PRO ENDOSCOPY W/VIDEO-ASST VEIN HARVEST, [...] referral, Lovely Vicente MD [address] [place] [address]. Barbra Soares, MSN, OUTSOLE BEVELER-BC, PRODUCT DEVELOPMENT INTERN Nurse Practitioner Pain Management Center documented in this encounter Plan of Treatment Upcoming Encounters Date Type Specialty Care Team Description 03/26/2022 Office Visit Cardiology Vitaliy Nobles MD 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
--- OUTSIDE RECORDS SUMMARY | 2022-02-23 08:56 | XMS_ITS | Encounter Summary ---
:1945 [place] [address] Care Team Providers Name Role Phone Lovely Vicente MD Primary Care Provider Encounter Details Date Type Department Care Team Description 08/04/2017 Notes Only Cardiac Surgery Makayla Wilson NAPHTHA WASHING SYSTEM OPERATOR [facility] [place] [address] CARDIAC SURGERY [phone] [place], [place] [address] (Wo rk) Social History Tobacco [...] [facility] ER CARDIOLOGY [place], [place] [address] (Wo rk) documented as of this encounter Visit Diagnoses Not on filedocumented in this encounter Care Teams Vinyl Cutter Relationship Specialty Start Date End Date Lovely Vicente MD PCP - General 04/16/[address] [place] [address] documented as of this encounter
--- OUTSIDE RECORDS SUMMARY | 2022-02-23 08:56 | XMS_ITS | Encounter Summary ---
:1945 Author Organization [facility] [place] [address] Care Team Providers Name Role Phone Lovely Vicente MD Primary Care Provider Encounter Details Date Type Department Care Team Description 08/03/2017 Telephone Pain Management at [place], [place] [address] Social History Tobacco Use Types Packs/Day [...] Management Center Preauthorization Request Patient: Don Fatima [id number] Fax received from [facility] requesting we obtain prior authorization for Lidocaine Patches prescribed by Barbra Soares APRN. RX insurance plan: [facility] insurance telephone: [phone] Patient ?? Diagnosis: right foot pain secondary to PVD and ischemia ?? Previous medications attempted: Tylenol, Tramadol, Dilaudid Authorization/Reference number: [id number], PBP Code 801 _x_ denied, provider and patient informed _x_ appeal initiated by provider, patient informed Angeles Rodrigez, RN documented in this encounter Plan of Treatment Upcoming Encounters Date Type Specialty Care Team Description 03/26/2022 Office Visit Cardiology Vitaliy Nobles MD [facility] ER CARDIOLOGY [place], [place] [address] (Wo rk) documented as of this encounter Visit Diagnoses Not on filedocumented in this encounter Care Teams Playground Equipment Erector Relationship Specialty Start Date End Date Lovely Vicente MD PCP - General 04/16/15 [facility] [address] [place] [address] documented as of this encounter
--- OUTSIDE RECORDS SUMMARY | 2022-02-23 08:57 | XMS_ITS | Encounter Summary ---
:1945 Author Organization [facility] [place] [address] Care Team Providers Name Role Phone Lovely Vicente MD Primary Care Provider Reason for Visit Reason Onset Date Comments Other 07/22/2017 lovenox bridge Encounter Details Date Type Department Care Team Description 07/22/2017 Telephone Cardiology at [facility] Court Cadena RN Other (lovenox bridge) [place] [address] Social History Tobacco Use Types Packs/Day [...] 4:49 PM EST VAMSI Del Castillo, at [facility], called earlier today with a question re: lovenox bridge for this patient who was recently discharged from [facility] r/t a blood clot. Discharge note faxed to [facility] (fax# [phone], Ph#: [phone]) which contains instructions r/t lovenox bridge as follows: Anticoagulation: on lovenox bridge to therapeutic coumadin for AFib. Goal INR 2-3. At discharge INR=1.5. The lovenox injections can stop when INR >2, coumadin will continue indefinitely. documented in this encounter Plan of Treatment Upcoming Encounters Date Type Specialty Care Team Description 03/26/2022 Office Visit Cardiology Vitaliy Nobles MD [facility] ER CARDIOLOGY [place], [place] [address] (Wo rk) documented as of this encounter Visit Diagnoses Not on filedocumented in this encounter Care Teams Melter Helper Relationship Specialty Start Date End Date Lovely Vicente MD PCP - General 04/16/[address] [place] [address] documented as of this encounter
--- OUTSIDE RECORDS SUMMARY | 2022-02-23 08:57 | XMS_ITS | Encounter Summary ---
:1945 [place] [address] Care Team Providers Name Role Phone Lovely Vicente MD Primary Care Provider Encounter Details Date Type Department Care Team Description 07/16/2017 Telephone Endocrinology at [facility] C Manuela Holliday, [facility] [place] [address] ENDOCRINOLOGY DEPT [phone] [place], [place] [address] (Wo rk) Social History Tobacco [...] Cardiology Vitaliy Nobles MD [facility] ER CARDIOLOGY [place], [place] [address] (Wo rk) documented as of this encounter Visit Diagnoses Not on filedocumented in this encounter Care Teams Chef Relationship Specialty Start Date End Date Lovely Vicente MD PCP - General 04/16/[address] [place] [address] documented as of this encounter
--- OUTSIDE RECORDS SUMMARY | 2022-02-23 08:57 | XMS_ITS | Encounter Summary ---
:1945 [place] [address] Care Team Providers Name Role Phone Lovely Vicente MD Primary Care Provider Reason for Visit Reason Onset Date Comments Questions 07/16/2017 fluid retention Encounter Details Date Type Department Care Team Description 07/16/2017 Telephone Cardiology at [facility] Martha Comer, Questions ([facility] RN retention ) [place] [address] Social History Tobacco Use Types Packs/Day [...] the direct number to the HF team ([phone]). She is aware of his appt with [facility] WORK DISPATCHER Hans on 07/21/17 and the need for labs prior to that visit. verbalized good understanding of the current POC. documented in this encounter Plan of Treatment Upcoming Encounters Date Type Specialty Care Team Description 03/26/2022 Office Visit Cardiology Vitaliy Nobles MD [facility] ER CARDIOLOGY [place], [place] [address] (Wo rk) documented as of this encounter Visit Diagnoses Not on filedocumented in this encounter Care Teams Mail Truck Driver Relationship Specialty Start Date End Date Lovely Vicente MD PCP - General 04/16/[address] [place] [address] documented as of this encounter
--- OUTSIDE RECORDS SUMMARY | 2022-02-23 08:57 | XMS_ITS | Encounter Summary ---
:1945 Author Organization [facility] [place] [address] Care Team Providers Name Role Phone Lovely Vicente MD Primary Care Provider Reason for Visit Reason Comments Foot Pain Auth/Cert Specialty Diagnoses / Procedures Referred By Contact Refer red To Contact Diagnoses Ischemic foot Procedures NAEY OBSVO Referral ID Status Reason Start Date Expiration Date Visits Requ ested Visits Authorized [id number] 1 1 Encounter Details Date Type Department Care Team Description 07/27/2017 Emergency [facility] Lokesh Swenson MD [facility] [address] [place] [address] Femoral artery pseudo-aneurysm, right; [facility] Tam Bauman MD [facility] [address] [place] [address] [place] [address] Social History Tobacco Use Types Packs/Day [...] Gregory Fatima Patient Age: 72 y.o. 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 Issues after hours and on weekends [...] RLE critical limb ischemia, who presented to [facility] with worsening RLE pain. Pt post-op course after CABG was significant for paroxysmal Afib, and he was started on Coumadin given elevated [id number] score. 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 [...] in the last 7068 hours. Invalid input(s): [id number] Recent Labs 07/08/17 0400 07/07/17 0515 07/06/17 [...] (it was low at 1.6 here at [facility]) 7. Use the tramadol if dilaudid or tylenol is not working 8. Stop taking the potassium supplement - your blood potassium level was elevated. Ask your doctors at future visits if this should be restarted. 9. Antibiotic for 5 days recommended by cardiothoracic surgery for chest wound drainage Follow-Up Appointments Vascular surgery as previously schedule Your Inpatient Doctor(s) at [facility]: CARLOS ALBERTO ROSALES MD General Instructions None Future Appointments and Orders Future Appointments Provider Department Dept Phone 07/30/2017 8:30 AM OSWALDO, THREE L Lab 3L [facility] [phone] 07/30/2017 9:40 AM Danette Maxwell APRN Cardiology at [place] [phone] 08/04/2017 1:00 PM Daniele Mooney [place] Vascular Lab at [place] [phone] 08/04/2017 2:15 PM Arik Clement MD Vascular Surgery at [place] [phone] 08/11/2017 10:00 AM [facility] ROOM 2 XRay at [place] [facility] [phone] Please go to [employer] Operator Area 3T ([place] Location). 08/11/2017 11:00 AM Yuan Retana MD Cardiac Surgery at [place] [phone] 09/07/2017 3:00 PM LAB, THREE L Lab 3L [facility] [phone] 09/07/2017 4:00 PM Luz Prescott MD Endocrinology at [place] [phone] Discharge References/Attachments None documented in this encounter [...] (it was low at 1.6 here at [facility]) 3. Use the tramadol if dilaudid or tylenol is not working 4. Stop taking the potassium supplement - your blood potassium level was elevated. Ask your doctors at future visits if this should be restarted. 5. Antibiotic for 5 days recommended by cardiothoracic surgery for chest wound drainage Follow-Up Appointments Vascular surgery as previously schedule Your Inpatient Doctor(s) at [facility]: CARLOS ALBERTO ROSALES MD documented in this [...] Gas) No results found for: PHART, PO2ART, YYU0VAC Assessment/Plan: 72 y.o. male s/p CABG in [...] intervention: Education Nutrition Recommendations: Recommend continuation of [facility], CHO2 diet order Patient and denied need [...] Orders Diet Daily Healthy Menu Choices/Cardiac diet ([facility]-Diet) 60/ CHO counting level 2 Frequency: Effective Now Number of Occurrences: Until Specified Admit Weight: 83.92 kg Estimated body mass index is 28.13 kg/(m^2) as calculated from the following: Height as of this encounter: 172.7 cm (5' 8). Weight as of this encounter: 83.9 kg (185 lb). [place] body weight: 68.4 kg (150 lb 12.7 [...] RLE critical limb ischemia, who presented to [facility] with worsening RLE pain. Visited with patient [...] spent >30 minutes (Day of Discharge Code 70335) involved in the final examination of the [...] Melanoma ID: 72 y.o. Male presents to [facility] with persistent pain b/l lower extremities History of Present Illness: HPI 72 y.o. male with PMH ASCVD s/p CABG (07/07/17), MARIA VICTORIA on CPAP QHS, HTN, HLD, DM2, with recent hospitalization for RLE critical limb ischemia, who presented to [facility] with worsening RLE pain. Pt post-op course after CABG was significant for paroxysmal Afib, and he was started on Coumadin given elevated [id number] score. 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 [...] [facility] MA[facility] Prior To Admission Medications: [...] Procedure Component Value Units Date/Time Blood culture [[id number]] Collected: 07/09/1739 Lab Status: Final result Specimen: Blood from Arm, Right Updated: 07/14/17701 Blood Culture No growth at 5 days. Blood culture [[id number]] Collected: 07/09/170 Lab Status: Final result Specimen: [...] limb ischemia following CABG, who presented to [facility] ED from home with persistent B/L LE [...] continued Diet Daily Healthy Menu Choices/Cardiac diet ([facility]-Diet) 60/60/75 CHO counting level 2Cardiac, low salt, CHO 2 Discharge planning Pending improvement in pain control PT/OT/Speech PT ordered Lines/Access PIV Ocasio catheter No DVT/GI Prophylaxis Lovenox bridge to Coumadin, SCD. Code status Full Code Family PCP Lovely Vicente MD [phone] Attestation Please see my note for details [...] encounter Miscellaneous Notes Plan of Care - Woodruff-Joyce Damian, PT - 07/27/2017 3:26 PM EST [...] Anticipated Discharge Disposition: home with assist Pager: [phone] JOYCE KING, PT Inpatient Physical Therapy 2017 [...] patient's evaluation including the following functional test(s) [facility]. Current ability measures, co-morbidities and clinical [...] a lovenox bridge. Mr. Fatima returns to [facility] ED tonight because of ongoing pain in [...] [facility] MEDICATIONS: No current facility-administered [...] up in clinic 1-2 weeks after discharge. [facility] Vascular Surgery Plan of Care - Jazmín [...] [facility] CARDIOLOGY [place], [place] [address] (Wo rk) documented as of [...] section. TYPE AND SCREEN STAT 07/27/2017 12:53 ([facility]/CGP/SHANDA) AM EST BASIC METABOLIC PANEL STAT 07/27/2017 12:53 Re sults for this (NON-FASTING) AM EST procedure are in the results section. documented in this encounter Results POCT Glucose (07/27/2017 11:53 AM EST) P athologist Signature POC Glucose 175 65 - 199 [place] RYAN mg/dL [facility] Comment: Supplemental ranges: <140 mg/dL before meals <180 mg/dL all other times of the day Specimen Anatomical Collection Method Collection Time Receive d Time (Source) Location / / Volume Laterality Blood specimen 07/27/2017 11:53 8 (specimen) AM EST 11:53 AM EST Tam Bauman MD POINT OF CARE TEST ORDERABLE S Performing Organization Address City/State/ZIP Code Phon e Number [place] [phone] Arterial Duplex Leg, Unil (07/27/2017 7:40 AM EST) Component Value Ref Test Analysis Performed At [facility] Range Method Time Signature VB Text Department: Vascular Surgery Lab VASCUBASE Report Patient: [id number] (GREGORY FATIMA) CPT: 79271 ICD10: I97.610;I72.4;Z09 Referring Physician: TAM BAUMAN ?? [...] Signature POC Glucose 96 65 - 199 [facility] mg/dL [facility] Comment: Supplemental ranges: <140 mg/dL [...] [facility] [place]/ZIP Code Phon e Number [address] ABORH Recheck Status (07/27/2017 12:53 AM EST) [facility] [employer] Method Time Signature ABORH Type Completed [facility] LABORATORY Specimen Anatomical Collection Method Collection Time Receive d Time (Source) Location / / Volume Laterality Blood specimen 07/27/2017 12:53 8 (specimen) AM EST 12:58 AM EST Resulting Agency Comment Spec In Lab Angela Swenson MD BLOOD BANK ORDERABLES Performing Organization Address City/[facility]/ZIP Code Phon e Number [address] Gold Tube HOLD (07/27/2017 12:53 AM EST) P athologist Signature Gold Hold Sample in [facility] LABORATORY Specimen Anatomical Collection Method Collection Time Receive d Time (Source) Location / / Volume Laterality Blood specimen Venous Draw / 07/27/2017 12:53 07/27/19 18 1:01 (specimen) Unknown AM EST AM EST Angela Swenson MD CHEMISTRY ORDERABLES Performing Organization Address City/[facility]/[place] [address] (ABNORMAL) Differential, Automated (07/27/2017 12:53 AM EST) [facility] [employer] Method Time Signature Neutrophils % 75.0 % [facility] LABORATORY Neutr Abs (ANC) 11.30 (H) 1.70 - [facility] 6.10 [facility] x10(3)/[facility] LABORATORY Lymphocytes % 9.9 % [facility]ORY Lymphocytes Abs 1.5 0.9 - 3.2 [facility] x10(3)/[facility] LABORATORY Monocytes % 8.6 % [facility]ORY Monocyte Abs 1.3 (H) 0.3 - 0.9 [facility] x10(3)/[facility] LABORATORY Eosinophils % 4.8 % [facility]ORY Eosinophils Abs 0.7 (H) 0.0 - 0.4 [facility] x10(3)/[facility] LABORATORY Basophils % 0.8 % [facility] LABORATORY Basophils Abs 0.1 0.0 - 0.1 [place] 438450(3)/[facility] LABORATORY Immature Gran % 0.90 % [facility]ITY [...] Gran Abs 0.13 (H) 0.00 - 0.04 x10(3)/[facility] LABORATORY Specimen Anatomical Collection Method Collection Time Receive d Time (Source) Location / / Volume Laterality Blood specimen 07/27/2017 12:53 8 1:00 (specimen) AM EST AM EST Resulting Agency Comment Spec In Lab Angela Swenson MD HEMATOLOGY ORDERABLES Performing Organization Address City/State/[place] [address] (ABNORMAL) Hemogram (07/27/2017 12:53 AM EST) Analysis Performed At Patho logist Time Signature WBC 15.0 (H) 4.0 - 9.5 [facility] x10(3)/[facility] LABORATORY RBC 3.59 (L) 4.58 - [place] 5.54 [facility] x10(6)/[facility] LABORATORY Hemoglobin 10.3 (L) 13.7 - [place]INA ZHAORYAN 16.5 gm/dL [facility] Hematocrit 32.6 (L) 40.5 - [place] 48.5 % [facility] MCV 90.8 82.9 - [facility] RYAN 93.1 [facility] LABORATORY MCH 28.7 27.5 - [place] 32.1 pg [facility] MCHC 31.6 (L) 32.0 - [place] ZHAORYAN 35.7 gm/dL [facility] Platelets 322 145 - 357 [facility] x10(3)/[facility] LABORATORY RDWSD 48.7 (H) 36.0 - [facility] RYAN 45.[address] [facility] LABORATORY RDWCV 14.7 (H) 11.4 - [facility] 13.8 % [facility] LAB[facility] MPV 8.9 7.6 - 12.9 [facility] LABORATORY nRBC % Auto 0.0 % [facility] LABORATORY nRBC Abs Auto 0.000 0.000 - [place] RY[place] 0.000 [facility] x10(3)/[facility] LABORATORY Specimen Anatomical Collection Method Collection Time Receive d Time (Source) Location / / Volume Laterality Blood specimen 07/27/2017 12:53 8 1:00 (specimen) AM EST AM EST Resulting Agency Comment Spec In Lab Angela Swenson MD HEMATOLOGY ORDERABLES Performing Organization Address City/[facility]/[place] [address] Antibody screen (07/27/2017 12:53 AM EST) [facility] gist Method Time Signature Ab Screen Negative [facility] LABORATORY Expires at 07/30/2017 KATALINA DAVIS [id number] on: [facility] Specimen Anatomical Collection Method Collection Time Receive d Time (Source) Location / / Volume Laterality Blood specimen 07/27/2017 12:53 8 (specimen) AM EST 12:58 AM EST Resulting Agency Comment Spec In Lab Angela Swenson MD BLOOD BANK ORDERABLES Performing Organization Address City/State/[place] [address] ABO/Rh Typing (07/27/2017 12:53 [...] Organization Address City/State/[place] [address] (ABNORMAL) Prothrombin Time (07/27/2017 [...] Organization Address City/State/[place] [address] (ABNORMAL) Basic Metabolic Panel (non-fasting) (07/27/2017 12:53 AM EST) P athologist Signature Glucose Lvl 95 65 - 199 [facility] mg/dL [facility] Comment: Diabetes: >=200 mg/dL plus symp toms BUN 37 (H) 10 - 20 mg/dL [facility]ORY Creatinine 1.49 0.80 - 1.50 mg/dL [facility] LABOR[facility]ORY Sodium 137 135 - 145 mmol/L [facility] Potassium 5.1 (H) 3.5 - 5.0 mmol/L [facility] Comment: Please note: ??Patients with WBC >100,00 0 may have falsely elevated Potassium levels. ??For accurate Potassium quantif ication in these patients send serum separator tube (gold top) for subsequent determinations. ??Contact the Clinical Chemistry Laboratory if there are any qu estions. Chloride 96 (L) 98 - 107 mmol/L [facility] CO2 28 22 - 31 mmol/L [facility] Anion Gap 13 5 - 15 mmol/L [facility] Calcium 8.6 8.5 - 10.5 mg/dL [facility] Estimated GFR 46 (L) >=60 [facility] Comment: The reported eGFR should be multiplied b y 1.2 for patients. The MDRD is not an appropriate measure o f renal function for patients with body mass extremes or in patients with acute kidney failure. 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
Routine documented in this encounter Care Teams Furnace Hand Relationship Specialty Start Date End Date Lovely Vicente MD PCP - General 04/16/15 [facility] [address] [place] [address] documented as of this encounter
--- OUTSIDE RECORDS SUMMARY | 2022-02-23 08:57 | XMS_ITS | Encounter Summary ---
:1945 Author Organization [facility] [place] [address] Care Team Providers Name Role Phone Lovely Vicente MD Primary Care Provider Encounter Details Date Type Department Care Team Description 07/24/2017 Telephone Vascular Surgery Melba [facility] [place] [address] [facility] [phone] VASCULAR SURGERY [place], [place] [address] (Wo rk) Social History Tobacco [...] was discharged on Coumadin. ??He presented to [facility] on 07/20 with mottled toes on the [...] Cardiology Vitaliy Nobles MD [facility] ER CARDIOLOGY [place], [place] [address] (Wo rk) documented as of this encounter Visit Diagnoses Not on filedocumented in this encounter Care Teams Drywall Sander Relationship Specialty Start Date End Date Lovely Vicente MD PCP - General 04/16/15 [facility] [address] [place] [address] documented as of this encounter
--- OUTSIDE RECORDS SUMMARY | 2022-02-23 08:57 | XMS_ITS | Encounter Summary ---
:1945 [place] [address] Care Team Providers Name Role Phone Lovely Vicente MD Primary Care Provider Reason for Visit Reason Comments Hospital Transfer cold foot post CABG Auth/Cert Specialty Diagnoses / Procedures Referred By Contact Refer red To Contact Diagnoses Critical lower limb ischemia Procedures NAYE IPI Referral ID Status Reason Start Date Expiration Date Visits Requ ested Visits Authorized [id number] 1 1 Encounter Details Date Type Department Care Team Description 07/20/2017 Hospital Encounter 4 Herminia Ibarra MD [facility] [address] Critical lower limb [facility] Arik Clement MD [facility] [place] [address] [place] [address] Social History Tobacco Use Types Packs/Day Years [...] home. Important Studies and Lab Data: Labs: [facility] Results Component Value Date INR 1.5 [...] For any problems or questions please call [phone] ZELDA Smith, post closing specialist Nurse Clinician For issues on weeknights after 5pm and weekends please call [phone] and ask for the Vascular Fellow energy conservation engineer. General Instructions None Future Appointments and Orders Future Appointments Provider Department Dept Phone 08/04/2017 1:00 PM Daniele Mooney [place] [facility] [place] [phone] 08/04/2017 2:15 PM Arik Clement MD [facility] Surgery [facility] [place] [phone] 09/07/2017 3:00 PM MAYRA CHACON Lab [facility] [phone] 09/07/2017 4:00 PM Luz Prescott MD [facility]ocrinology at [place] [phone] Future Orders Complete By Expires Arterial Duplex Leg, Unil [VAS32 Custom] 07/27/2017 (Approximate) 01/26/2018 Process Instructions: There is no in-house vascular home performance laborer available on weeknights (5pm-8am), weekends, or holidays. IF THIS IS A REQUEST FOR AN EMERGENT STUDY DURING THOSE HOURS, please have the senior provider responsible for the patient page the Vascular Surgery Fellow/Senior Resident energy conservation engineer to discuss options. Scheduling Instructions: Questions: Indication for study/signs & symptoms: Right femoral PSA s/p cardiac cath Question to be answered: bloodflow to PSA Laterality: Right Is there a RIGHT LOWER EXTREMITY graft?: No Lower limb right segments: Common Femoral Is there a stent?: No At which location will this be performed?: [place] Referral to Home Health - at DISCHARGE [[id number] CPT(R)] As directed Process Instructions: Scheduling Instructions: Comments: DOCUMENTATION FOR VNA SERVICES (INCLUDING THOSE PATIENTS WITH MEDICARE COVERAGE REQUIRING HOME VNA SERVICES AND/OR HOSPICE SERVICES) PATIENT'S LOCATION: Gregory Fatima [address] [place] [address] [place] [id number] (home) Cell: Telephone Information: Studio Potter's Name: self In discussion with the attending physician, it is certified that this patient is under their care and that they, or a Nurse Practitioner,Clinical Nurse specialist or Physician Cone Marker who is working directly with them, had [...] CARE AGENCY: [facility] ([facility] [place] [facility]-is in [place] PHONE: [phone] FAX: [phone] Start of care: 24- 48 hours FOR [...] patient'sPCP: Lovely Vicente MD [address] [facility] [place] / [place] [address] All VNA agencies which cover the area [...] For any problems or questions please call [phone] ZELDA Smith, post closing specialist Nurse Clinician For issues on weeknights after 5pm and weekends please call [phone] and ask for the Vascular Fellow energy conservation engineer. 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 A letter describing our affiliations was reviewed with them and theywere educated about their right to choose where referrals are placed. Patient requests referral to [facility]. PHONE: [phone] FAX: [phone]. Expected date of discharge: 07/20/2017 . Referral routed to the [employer] E Business Developer for matching with agency/vendor and to provide any required information. 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 A letter describing our affiliations was reviewed with them and theywere educated about their right to choose where referrals are placed. Patient requests referral to [facility] ([facility] [place] [facility]- is in [facility] PHONE: [phone] FAX: [phone]. Expected date of discharge: 07/20/2017 . Referral routed to the [employer] E Business Developer for matching with agency/vendor and to provide any required information. Katina Pulliam RNtravel information center supervisor Janneth Lee MD - 07/20/2017 7:29 AM [...] at [facility] ENDOSCOPY ??? PRO ENDOSCOPY W/VIDEO-ASST VEIN HARVEST, CABG Right 07/07/2017 ENDOSCOPIC HARVEST VEIN(S) FOR CABG (WRVU 0.31) performed by Yuan Retana MD at [facility] MAIN OR ??? PRO THYROIDECTOMY 03/28/2013 THYROIDECTOMY, TOTAL OR COMPLETE performed by Manny Mcknight MD at [facility] MAIN OR Functional Status/Social Hx: Social [...] -ISS -pain control Discussed with Vascular Fellow energy conservation engineer. Chris Valadez MD PGY2 Pager [phone] documented in this encounter ED Notes Annita Reaves MD - 07/20/2017 3:15 PM EST Emergency Department Gregory Fatima is a 72 y.o. 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 History of Present Illness [...] 04/05/2013 Hospitalizations Within the Past 30 Days: [facility] 07/05/17 Anticipated Length Of Stay (If known): [...] Health/Prescription Coverage: Primary Insurance: MEDICARE Secondary Insurance: treadalong [facility] Prescription Coverage: See above Preferred Pharmacy: [facility] Other: N/A Primary Care Provider: Lovely Vicente MD [phone] Patient/Caregiver Goals of Treatment: Patient plans to return home when medically ready Potential Needs for Transition of Care: Rehab/SNF: N/A Home Health: [facility] ([facility] [place] [facility]-is in [place] PHONE: [phone] FAX: [phone] DME: N/A Dialysis: N/A Community Resources: N/A Transportation: Patient family will transport Other: N/A Anticipated Barriers to Discharge/Special Considerations: None Plan: Patient plans to return home with home health services when medically ready A member of the Care Management team will continue to monitor progress, follow for continuity of care and assist with transition of care planning. Naty Pulliam RN Pager: [phone] ED Triage - Rayna Weir RN - 07/20/2017 12:28 AM EST Pt transferred from [place] for blue right foot and painful toes. [...] Visit Cardiology Vitaliy Nobles MD [facility] ER [address] [place], [place] [address] (Wo rk) documented as of this encounter Procedures Procedure Name Priority Date/Time Associated Comments Diagnosis PARTY PLAN DEALER SCAN 09/02/2017 12:00 Res ults for this [...] TO LAB EST procedure are i n ([facility]) the results section. APTT STAT 07/20/2017 2:25 AM Results f or this EST procedure are i n the results section. PROTHROMBIN TIME STAT 07/20/2017 2:25 AM Resul ts for this EST procedure are i n the results section. BASIC METABOLIC PANEL STAT 07/20/2017 2:25 AM Results for this (NON-FASTING) EST procedure are in the results section. documented in this encounter Results SCAN DOC: PARTY PLAN DEALER (09/02/2017 12:00 AM EST) Narrative 09/02/2017 12:00 AM EST This result has an attachment that is no t available. Ordered by an unspecified provider. Scanning Provider MEDIA MGR SCAN EXT ORDR/RSLT POCT Glucose (07/20/2017 12:04 PM EST) athologist Signature POC Glucose 189 65 - 199 [facility] mg[facility]dL [facility] Comment: Supplemental ranges: <140 mg/dL before meals <180 mg/dL all other times of the day Specimen Anatomical Collection Method Collection Time Receive d Time (Source) Location / / Volume Laterality Blood specimen 07/20/2017 12:04 7 (specimen) PM EST 12:04 PM EST Arik Clement MD POINT OF CARE TEST ORDERABLE S Performing Organization Address City/State/[place] [address] (ABNORMAL) Differential, Automated (07/20/2017 10:34 AM EST) Patholo gist Method Time Signature Neutrophils % 84.3 % [facility] Neutr Abs (ANC) 14.27 (H) 1.70 - [facility] 6.10 [facility] x10(3)/[facility] L LABORATORY Lymphocytes % 5.6 % [facility] Lymphocytes Abs 1.0 0.9 - 3.2 [facility] x10(3)/[facility] LABORATORY Monocytes % 6.1 % [facility] Monocyte Abs 1.0 (H) 0.3 - 0.9 [facility] x10(3)/[facility] LABORATORY Eosinophils % 2.4 % [facility] Eosinophils Abs 0.4 0.0 - 0.4 [facility] x10(3)/[facility] LABORATORY Basophils % 0.5 % [facility] Basophils Abs 0.1 0.0 - 0.1 [facility] x10(3)/[facility] LABORATORY Immature Gran % 1.10 % [...] Gran Abs 0.19 (H) 0.00 - 0.04 x10(3)/[facility] LABORATORY Specimen Anatomical Collection Method Collection Time Receive d Time (Source) Location / / Volume Laterality Blood specimen 07/20/2017 10:34 7 (specimen) AM EST 10:39 AM EST Resulting Agency Comment Spec In Lab Arik Clement MD HEMATOLOGY ORDERABLES Performing Organization Address City/State/[place] [address] (ABNORMAL) Hemogram (07/20/2017 10:34 AM EST) Analysis Performed At Patho logist Time Signature WBC 17.0 (H) 4.0 - 9.5 [facility] x10(3)/[facility] LABORATORY RBC 3.70 (L) 4.58 - [place] 5.54 [facility] x10(6)/[facility] LABORATORY Hemoglobin 10.8 (L) 13.7 - [place] 16.5 gm/dL [facility] Hematocrit 33.4 (L) 40.5 - [place] 48.5 % [facility] MCV 90.3 82.9 - [facility] RYAN 93.1 [facility] LABORATORY MCH 29.2 27.5 - [place] 32.1 pg [facility] MCHC 32.3 32.0 - [place] 35.7 gm/dL [facility] Platelets 211 145 - 357 [facility] x10(3)/[facility] LABORATORY RDWSD 49.1 (H) 36.0 - [place] RYAN 45.0 [facility] LABORATORY RDWCV 14.7 (H) 11.4 - [facility] 13.8 % [facility] MPV 9.2 7.6 - 12.9 [facility] LABORATORY nRBC % Auto 0.0 % [facility] nRBC Abs Auto 0.000 0.000 - [place] RYAN 0.000 [facility] x10(3)/[facility] LABORATORY Specimen Anatomical Collection Method Collection Time Receive d Time (Source) Location / / Volume Laterality Blood specimen 07/20/2017 10:34 7 (specimen) AM EST 10:39 AM EST Resulting Agency Comment Spec In Lab Arik Clement MD HEMATOLOGY ORDERABLES Performing Organization Address City/State/[place] [address] (ABNORMAL) APTT (07/20/2017 10:34 AM EST) P athologist Signature PTT 79 (H) 25 - 35 sec [facility] Comment: The recommended therapeutic range for fu ll dose, unfractionated heparin at [facility] is 80 ? 114 seconds. The use [...] Clement MD HEMATOLOGY ORDERABLES Performing Organization Address City/[facility]/ZIP Code Phon e Number [address] POCT Glucose (07/20/2017 7:41 AM EST) P athologist Signature POC Glucose 174 65 - 199 [facility] mg/dL [facility] Comment: Supplemental ranges: <140 mg/dL before meals <180 mg/dL all other times of the day Specimen Anatomical Collection Method Collection Time Receive d Time (Source) Location / / Volume Laterality Blood specimen 07/20/2017 7:41 AM 017 7:41 (specimen) EST AM EST Arik Clement MD POINT OF CARE TEST ORDERABLE S Performing Organization Address City/[facility]/ZIP Code Phon e Number [address] JULIAN, legs, multiple levels (07/20/2017 7:33 AM EST) Component Value Ref Test Analysis Performed At Patholo gist Range Method Time Signature VB Text Department: Vascular Surgery Lab VASCUBASE Report Patient: [id number] (GREGORY FATIMA) CPT: 51081 ICD10: I75.021;I99.8 Referring Physician: RAIK CLEMENT ?? Indications: s/p cardiac cath, right [...] Component Value Ref Test Analysis Performed At [facility] Range Method Time Signature VB Text Department: Vascular Surgery Lab VASCUBASE Report Patient: [id number] (GREGORY FATIMA) CPT: 61157 ICD10: I97.610;I99.8 Referring Physician: ARIK CLEMENT ?? [...] Signature POC Glucose 199 65 - 199 [facility] mg/dL [facility] Comment: Supplemental ranges: <140 mg/dL before meals <180 mg/dL all other times of the day Specimen Anatomical Collection Method Collection Time Receive d Time (Source) Location / / Volume Laterality Blood specimen 07/20/2017 3:41 AM 017 3:41 (specimen) EST AM EST Arik Clement MD POINT OF CARE TEST ORDERABLE S Performing Organization Address City/State/[place] [address] Lactate, whole blood, send to lab (Leb/CGP) (07/20/2017 2:25 AM EST) athologist Signature Lactate WB 2.0 0.5 - 2.2 [facility] mmol/L [facility] Specimen Anatomical Collection Method Collection Time Receive d Time (Source) Location / / Volume Laterality Blood specimen Venous Draw / 07/20/2017 2:25 AM 2016 2:37 (specimen) Unknown EST AM EST Resulting Agency Comment Spec In Lab Zulma Samuel MD CHEMISTRY ORDERABLES Performing Organization Address City/[facility]/[place] [address] (ABNORMAL) APTT (07/20/2017 2:25 AM EST) P athologist Signature PTT 36 (H) 25 - 35 sec [facility] Comment: The recommended therapeutic range for fu ll dose, unfractionated heparin at [facility] is 80 ? 114 seconds. The use [...] Reaves MD HEMATOLOGY ORDERABLES Performing Organization Address [facility] [place] [address] (ABNORMAL) Prothrombin Time (07/20/2017 2:25 AM EST) P athologist Signature PT 17.7 (H) 11.8 - 14.0 [facility] [...] Reaves MD HEMATOLOGY ORDERABLES Performing Organization Address [facility] [place] [address] (ABNORMAL) Basic Metabolic Panel (non-fasting) (07/20/2017 2:25 AM EST) athologist Signature Glucose Lvl 187 65 - 199 [facility] mg/dL [facility] Comment: Diabetes: >=200 mg/dL plus symp toms BUN 35 (H) 10 - 20 mg/dL [facility] Creatinine 1.51 (H) 0.80 - 1.50 mg/dL [facility] Sodium 134 (L) 135 - 145 mmol/L [facility] Potassium Not Perf 3.5 - 5.0 mmol/L [facility] Comment: Specimen hemolyzed. Called by: [facility], Read back by: Chitra Orantes, Date/Time:07/20/17 [...] mg/dL [facility] Estimated GFR 46 (L) >=60 [facility] Comment: The reported eGFR should be multiplied b y 1.2 for patients. The MDRD is not an appropriate measure o f renal function for patients with body mass extremes or in patients with acute kidney failure. http://[employer]/DHnkdep http://[employer]/DHMCnkf Specimen Anatomical Collection Method Collection Time Receive d Time (Source) Location / / Volume Laterality Blood specimen 07/20/2017 2:25 AM 017 2:33 (specimen) EST AM EST Resulting Agency Comment Spec In Lab Annita Reaves MD CHEMISTRY ORDERABLES Performing Organization Address City/State/ZIP Code [place] [address] documented in this encounter [...]
Routine documented in this encounter Care Teams [employer] Principal Relationship Specialty Start Date End Date Lovely Vicente MD PCP - General 04/16/15 [address] [facility] [facility] [address] [place] [address] documented as of this encounter
--- OUTSIDE RECORDS SUMMARY | 2022-02-23 08:58 | XMS_ITS | Encounter Summary ---
:1945 Author Organization [facility] [place] [address] Care Team Providers Name Role Phone Lovely Vicente MD Primary Care Provider Reason for Referral Consultation (Routine) - Closed Specialty Diagnoses / Referred By Contact Referred To Contact Procedures Cardiac Rehabilitation Diagnoses S/P CABG x 3 Yuan Webber, Cardiac Rehab, [address] [place] CARDIOTHORACIC [address] [place] [address] Referral ID Status Reason Start Date Expiration Date Visits V isits Requested Authorized [id number] Closed Consult, 07/14/2017 01/10/2018 36 36 Test & Treat Reason for Visit Auth/Cert Specialty Diagnoses / Procedures Referred By Contact Refer red To Contact Diagnoses STEMI (ST elevation myocardial infarction) NSTEMI STEMI Procedures CARDIAC CATHETERIZATION NAYE IPI Referral ID Status Reason Start Date Expiration Date Visits Requ ested Visits Authorized [id number] 1 1 Encounter Details Date Type Department Care Team Description 07/05/2017 - Hospital Encounter Cardiac Special Daphne Shahid MD [facility] [address] Non-ST elevation myocardial infarction ( NSTEMI); 07/14/2017 Care Unit Yuan Preciado MD [facility] [place] [address] S/P CABG x 3 [place] [id number] Social History Tobacco Use Types Packs/Day Years [...] Patient Age: 72 y.o. Birthdate: 1945 Language: Samoan Race: White Ethnicity: Not nor Admit Date: [...] , @ 1:20p Patient to follow-up with Stock Clerk Self Service Store/heart failure team in one week. An appointment will be made for you. You may call [phone] Patient to follow-up with Cardiac Surgery, Dr. Yuan Webber, in ~ 4 weeks with CXR, EKG. Inpatient Provider Contact Information: [facility] Section of Cardiac Surgery [facility] [place] [address] FAX [phone] Discharge Diagnoses (Hospital Problems) Primary Diagnoses: CAD [...] [facility] MAIN OR ??? PRO CABG, ARTERIAL, SINGLE N/A 07/07/2017 @CABG, USING ARTERIAL GRAFT;SINGLE ARTERIAL GRAFT (WRVU 33.75) performed by Yuan Webber MD at [facility] MAIN OR ??? PRO CABG, ARTERY-VEIN, TWO N/A 07/07/2017 @CABG, TWO VENOUS GRAFTS & ARTERIAL GRAFT (WRVU 7.93) performed by Yuan Webber MD at [facility] MAIN OR ??? PRO COLONOSCOPY, REMV LESN, SNARE 01/16/2014 COLONOSCOPY, POLYPECTOMY, REMOVAL LESION BY SNARE performed by Nohemi Jaimes MD at [facility] ENDOSCOPY ??? PRO ENDOSCOPY W/VIDEO-ASST VEIN HARVEST, CABG Right 07/07/2017 ENDOSCOPIC HARVEST VEIN(S) FOR CABG (WRVU 0.31) performed by Yuan Webber MD at [facility] MAIN OR ??? PRO THYROIDECTOMY 03/28/2013 THYROIDECTOMY, TOTAL OR COMPLETE performed by Mnany Mcknight MD at [facility] MAIN OR Prior To Admission Medications Prescriptions Prior to Admission Medication Sig Dispense Refill Last Dose ??? levothyroxine (SYNTHROID) 175 mcg Tablet Take 1 tablet by mouth daily. 90 tablet 3 07/05/2017 [id number] ??? ascorbic acid, vitamin C, (VITAMIN C) [...] hospital and ruled infor non-ST segment elevation [place]. This almost certainly represents the residual of [...] Hospital Course: Gregory Hoang was admitted to [facility] on 07/05/2017 via the Cardiology Service. During his hospital course, he was taken emergently to the computer lab para professional for an ongoing STEMI. An IABP was [...] not take or discontinue any prescription or xfwz-vjn-grluhlb medications without asking your doctor or pharmacist [...] day to have your insulin doses adjusted. [facility] Endocrine clinic office Discharge Instructions: Call your doctor if: You have a fever of greater than 101 degrees, shaking chills, if you develop redness or drainage from your incision sites, or if you have questions. Please call your surgeon's office if you have any discharge or drainage from your chest incision. Your surgeon, Dr. Yuan Webber and/or the Cardiac Surgery Physician Senior Business Manager Team may be reached at . Weight: [...] Dr. Yuan Webber. You may use a [place] Track or treadmill but avoid any [...] friends, go to a movie, go to druze, etc. Heavy activities: No hunting, skiing, jogging, snow shoveling, snowmobiling, lawn mowing, swimming, golf or tennis until after your return appointment with the surgeon. Do not ride motorcycles, [employer] tractors or horses. Avoid the use of [...] should resume a low fat, low cholesterol, [place] Heart Association Diet/Diabetic diet. Driving: No driving [...] , @ 1:20p Patient to follow-up with Stock Clerk Self Service Store/heart failure team in one week. Appointment will be made for you. You may call [phone] Patient to follow-up with Cardiac Surgery, Dr. [...] 3:00 PM LAB, THREE L Lab 3L [facility] [phone] 09/07/2017 4:00 PM Luz Prescott MD Endocrinology at [facility] [phone] Future Orders Complete By Expires EKG 12 Lead [EKG1 Custom] 08/14/2017 02/13/2018 Process Instructions: Scheduling Instructions: Questions: Which location will this be performed?: [facility] Is a rhythm strip needed?: No If EKG Reason is Pre-op Evaluation, indicate diagnosis for surgery.: XR Chest PA & Lateral (Generic) [50938 [id number] Custom] 08/14/2017 02/13/2018 Process Instructions: Scheduling Instructions: Questions: Where will study be performed?: [facility] Portable exam?: Reason for exam and clinical history: CABG x 3 Other pertinent information: Stat read required?: Date of injury if applicable: Requested Time: Referral to Cardiac Rehab [ABD090 Custom] As directed Process Instructions: If no progress note charted, please enter Clinical details in comments. Scheduling Instructions: Questions: My question or request is: s/p CABG. Cardiac rehab at [facility] Referral to Home Health - at DISCHARGE [AUX0651 CPT(R)] As directed Process Instructions: Scheduling Instructions: Comments: DOCUMENTATION FOR VNA SERVICES (INCLUDING THOSE PATIENTS WITH MEDICARE COVERAGE REQUIRING HOME VNA SERVICES AND/OR HOSPICE SERVICES) PATIENT'S LOCATION: Gregory Hoang [address] [place] [address] [place] [id number] (home) Telephone Information: Advanced Practice Psychiatric Nurse's Name: self In discussion with the attending physician, it is certified that this patient is under their care and that they, or a Nurse Practitioner, or Physician Senior Business Manager who is working directly with them, had [...] HEALTH AGENCY: [facility] ([facility] [place] [facility] in [place]) PHONE: [phone] FAX: [phone] RN orders: Cardiopulmonary assessment, incisional assessment, assess vital signs, assessment of rehab progress, medication management and effectiveness, home safety evaluation. Please draw INR if indicated and send result to:Dr Vicente [phone] PT ORDERS: Continue rehab for endurance, gait stability and strength with mobility and transfers. Home safety evaluation. Home exercise program if appropriate. Start of Care Date:24-48 hours after discharge SPECIAL INSTRUCTIONS: For any follow up questions, needs, or issues please call the Cardiac Surgery Office at [phone] FOR MEDICARE ONLY: (please delete this section [...] OR AFTER 07/17/2017 Signed: Martha Teague APRN [facility] Section of Cardiac Surgery [facility] [place] [address] FAX [phone] Date: 07/14/2017 CC: MD Ivania Cr Betsy, PA [address] [place] [phone] documented in this encounter Discharge Instructions Discharge [...] day to have your insulin doses adjusted. [facility] Endocrine clinic office Patient InstructionsStMartha mcdonald APRN [...] not take or discontinue any prescription or ipas-hnr-inxnmux medications without asking your doctor or pharmacist [...] juice or regular (not diet) soda 6 [employer] small box of raisins 4 glucose tablets [...] day to have your insulin doses adjusted. [facility] Endocrine clinic office ? Discharge Instructions: ?? Call your doctor if: You have a fever of greater than 101 degrees, shaking chills, if you develop redness or drainage from your incision sites, or if you have questions. Please call your surgeon's office if you have any discharge or drainage from your chest incision. Your surgeon, Dr. Yuan Webber and/or the Cardiac Surgery Physician Senior Business Manager Team may be reached at . ?? [...] Dr. Yuan Webber. You may use a [place] Track or treadmill but avoid any [...] friends, go to a movie, go to druze, etc. ?? Heavy activities: No hunting, skiing, jogging, snow shoveling, snowmobiling, lawn mowing, swimming, golf or tennis until after your return appointment with the surgeon. Do not ride motorcycles, [employer] tractors or horses. Avoid the use of [...] should resume a low fat, low cholesterol, [place] Heart Association Diet/Diabetic diet. ?? Driving: No [...] @ 1:20p ?? Patient to follow-up with Stock Clerk Self Service Store/heart failure team in one week. An appointment has been made for you, you can call [phone] ?? Patient to follow-up with Cardiac Surgery, [...] 3:00 PM LAB, THREE L Lab 3L [facility] [phone] ?? 09/07/2017 4:00 PM Luz Prescott MD Endocrinology at [facility] [phone] Future Orders Complete By Expires ?? EKG 12 Lead [EKG1 Custom] 08/14/2017 02/13/2018 ?? Process Instructions: ? Scheduling Instructions: ? Questions: ? Which location will this be performed?: [facility] ?? Is a rhythm strip needed?: No ?? If EKG Reason is Pre-op Evaluation, indicate diagnosis for surgery.: ?? XR Chest PA & Lateral (Generic) [[id number] Custom] 08/14/2017 02/13/2018 ?? Process Instructions: ? Scheduling Instructions: ? Questions: ? Where will study be performed?: [facility] ?? Portable exam?: ?? Reason for exam and clinical history: CABG x 3 ?? Other pertinent information: ?? Stat read required?: ?? Date of injury if applicable: ?? Requested Time: ?? Referral to Cardiac Rehab [NQW925 Custom] As directed ? Process Instructions: ?? [...] RN - 07/14/2017 2:34 PM EST The patient/operations support representative has been provided a list of Home Health Agencies/DME vendors which serve their preferred geographic area. A letter describing our affiliations was reviewed with them and theywere educated about their right to choose where referrals are placed. Patient requests referral to [facility] PHONE: [phone] FAX: [phone] Expected date of discharge: 07/14 Referral routed to the News Production Assistant for matching with agency/vendor and to [...] day to have your insulin doses adjusted. [facility] Endocrine clinic office Kathie Carrera APRN [facility] Endocrinology Diabetes Management Pager [phone] minutes of this 35 minute visit was spent with the patient in counseling on diabetes and treatment plan, reviewing all glucose and insulin data as well as relevant laboratory results with the patient, and coordination of care on the inpatient unit including nursing and primary team. Zulma Andres, RN - 07/14/2017 10:30 AM EST The patient/operations support representative has been provided a list of Home Health Agencies/DME vendors which serve their preferred geographic area. A letter describing our affiliations was reviewed with them and theywere educated about their right to choose where referrals are placed. Patient requests referral to : [facility] ([facility] [place] [facility] in [place] PHONE: [phone] FAX: [phone]. Expected date of discharge: 07/14/17 Referral routed to the News Production Assistant for matching with agency/vendor and to [...] #6 s/p CABG X3. FSBG 80 at [place], reports no symptoms but did drink some [...] Will continue to follow Katerin Azul APRN [facility] Endocrinology Diabetes Management Pager [phone] 15 minutes of this 25 minute visit [...] of infiltration/extravasation Discussed plan of care with TYPING BOOKKEEPER and RN. Elevate exrtemity and apply intermittent Warm compresses. Name of MD contacted Dr. Shaw Brown 07/13/2017 @ 0632 Name of RN contacted Ale Rangel RN Name of Pharmacist if consulted NA Name of Plastics MD ( if consulted) NA (Mandatory photo for infiltrations/ extravasations scoring a stage 2 or greater, but recommended forstage 1)( include measuring tape and identifier in the photo) MICROBIOLOGICAL ANALYST CARING FOR THIS PATIENT WILL CONTINUE [...] measuring tape and identifier in the photo) MICROBIOLOGICAL ANALYST CARING FOR THIS PATIENT WILL CONTINUE [...] AM EST Cardiac Surgery Progress Note: ID: [id number] 72 year old male POD#6 s/p CABGx3 [...] discharge. ?? I have met with the patient/operations support representative to discuss discharge planning needs. I have provided the [facility], Office of Care Management letter from the Planetarium Technician pertaining to rehab referrals. I have also provided a letter describing our affiliations within the [facility] and educated them about their right to choose where referrals are placed. ?? I reviewed the different levels of rehab including SNF, swing, acute and LTAC with the patient/operations support representative. ?? The patient/operations support representative has been provided a list of facilities within their preferred geographic area. ?? I have requested that the patient/operations support representative provide at least three choices for referral. ?? The patient/operations support representative have requested referrals to: ?? 1. . ?? 2. [facility] ?? 3. More to be entered ?? Expected date of discharge: 07/14 Note routed to News Production Assistant who will communicate referrals to facilities [...] hours. If BG remains greater than 240, [id number] units (no more than three times) & [...] continue to follow Katerin Patel. STACIE Azul [facility] Endocrinology Diabetes Management Pager [phone] 20 minutes of this 35 minute visit was spent with the patient in counseling on diabetes and treatment plan, reviewing all glucose and insulin data as well as relevant laboratory results with the patient, and coordination of care on the inpatient unit including nursing and primary team. Makayla Stevenson APRN - 07/12/2017 9:52 AM EST Cardiac Surgery Progress Note: ID: [id number] 72 year old male POD#5 s/p CABGx3 [...] 07/11/2017 7:18 PM EST Patient arrived from [facility]. VSS. MSI dressing pulled off with [...] hours. If BG remains greater than 240, meaekl53 units (no more than three times) & [...] AM EST Cardiac Surgery Progress Note: ID: [id number] 72 year old male POD#4 s/p CABGx3 [...] hours. If BG remains greater than 240, judlmf03 units (no more than three times) & [...] AM EST Cardiac Surgery Progress Note: ID: [id number] 72 year old male POD#3 s/p CABGx3 [...] Gas) No results found for: PHART, PO2ART, BGG0VJQ Assessment/Plan: 72 year old male POD#3 s/p [...] Encounter Note Patient Name: Gregory Hoang : [id number] MR#: [id number] Admit Date: 07/05/2017 4:20 PM Hospital Day 4 days Narrative: Patient was sitting in chair, hugging heart pillow, opened his eyes, nodding to come into room Assessment: Patient was sleepy. Intervention and Outcome: Introduced clinical faculty services and patient reached his hand out in appreciation. Follow-up: Founder / Ceo remains available for support. Time in Direct [...] 07/09/2017 10:45 AM EST Report given to direct support staff member to cover care Maddison Cee PA - 07/09/2017 9:00 AM EST Cardiac Surgery Progress Note: ID: [id number] 72 year old male POD#2 s/p CABGx3 [...] Attending Surgeon on rounds. Signed: STEPHANIE Iqbal [facility] Section of Cardiac Surgery Date: 07/09/2017 Magnolia Santiago [facility] - 07/09/2017 1:[address] [...] when IABP d/c'ed. Gretchen Carolina, PT Pager [phone] Maddison Cee PA - 07/08/2017 11:27 AM EST Cardiac Surgery Progress Note: ID: [id number] 72 year old male POD#1 s/p CABGx3 [...] Attending Surgeon on rounds. Signed: STEPHANIE Iqbal [facility] Section of Cardiac Surgery Date: 07/08/2017 [...] unit. NICK SEGAL MD 07/08/2017 Jay Munoz [facility] - 07/08/2017 4:[address] [...] in place in R femoral. No hematoma. METAL GRADER- Intact Psych- Anxious Skin- Dry, no peripheral [...] intact. IABP in place in R femoral. METAL GRADER- Intact Psych- Anxious Skin- Dry, no peripheral [...] Ramírez MD, PGY-1 Cardiology S1 (pgr. [id number]) . CARDIOLOGY ATTENDING NOTE Patient: Gregory Hoang [...] note for details. DAPHNE SHAHID MD Pager [phone] Jet Mckenna MD - 07/05/2017 6:48 PM EST Preliminary Cardiac Catheterization Procedure Note: Procedure(s) performed: Left heart cath, IABP insertion Access: Right FIRE BOSS-->8fr IABP A time-out was conducted prior to [...] effect. Heparin gtt maintained. Pt transferred to computer lab para professional. documented in this encounter H&P Notes Daphne Shahid MD - 07/05/2017 6:08 PM EST CARDIOLOGY HISTORY & PHYSICAL EXAM Date of Admission: 07/05/2017 ( Hospital Day 0 days ) Responsible Attending: Daphne Shahid MD PCP: Lovely Vicente MD PCP#: [phone] Patient Active Problem List Diagnosis Code ??? [...] No significant valvular disease. Taken to the computer lab para professional urgently for ongoing STEMI. [facility] [...] monitor I/O - s/p lasix in the computer lab para professional, redose to aim net neg 1L by [...] - ISS - hold metformin - f/u [facility] #Home Meds - continue levothyroxine 175mcg - CPAP at night # Routine - DVT PPx: heparin drip - Diet: NPO - Code Status: FULL - Dispo: [facility] Cedric Bey MD Internal Medicine, PGY-2 Cardiology S1, Team Pager # [phone] CARDIOLOGY ATTENDING NOTE Patient: Gregory Hoang Date [...] amenable for PCI. DAPHNE SHAHID MD Pager [phone] documented in this encounter Miscellaneous Notes Consult Note - Daphne Shahid MD - 07/14/2017 11:46 AM EST Heart Failure Service Inpatient Consult Note Gregory Hoang Date of : 1945 Age: 72 y.o. Today's date: 07/14/17 PCP: Lovely Vicente MD PRINCIPAL CONSULTANT: None [facility] [place] [facility] Reason for Consult: Dr. Webber has requested [...] [facility] MAIN OR ??? PRO CABG, ARTERIAL, SINGLE N/A 07/07/2017 @CABG, USING ARTERIAL GRAFT;SINGLE ARTERIAL GRAFT (WRVU 33.75) performed by Yuan Webber MD at [facility] MAIN OR ??? PRO CABG, ARTERY-VEIN, TWO N/A 07/07/2017 @CABG, TWO VENOUS GRAFTS & ARTERIAL GRAFT (WRVU 7.93) performed by Yuan Webber MD at [facility] MAIN OR ??? PRO COLONOSCOPY, REMV LESN, SNARE 01/16/2014 COLONOSCOPY, POLYPECTOMY, REMOVAL LESION BY SNARE performed by Nohemi Jaimes MD at [facility] ENDOSCOPY ??? PRO ENDOSCOPY W/VIDEO-ASST VEIN HARVEST, CABG Right 07/07/2017 ENDOSCOPIC HARVEST VEIN(S) FOR CABG (WRVU 0.31) performed by Yuan Webber MD at [facility] MAIN OR ??? PRO THYROIDECTOMY 03/28/2013 THYROIDECTOMY, TOTAL OR COMPLETE performed by Manny Mcknight MD at [facility] MAIN OR Outpt Meds: Current [...] following studies: EKG 07/14/17: NSR 75 bpm, SERGER anterior infarct, LAD CXR 07/11/17: FINDINGS: Sternotomy wires. The patient has been extubated, left chest tube removed, and Young Harris-Suzi catheter removed since the 07/07/2017 study. Atelectasis [...] man with history of hypertension, hyperlipidemia, IDDM2, MARAI VICTORIA on CPAP who was admitted on [...] was discussed with Zehra. Jaden Kelley MD [place] [employer] Group Leader Pager [phone] CARDIOLOGY ATTENDING NOTE Patient: Gregory Hoang Date [...] heart failure clinic. DAPHNE SHAHID MD Pager [phone] Plan of Care - Alden Chavarria, LOAD MIXER - 07/14/2017 11:35 AM EST Problem: Patient [...] Discharge Disposition: home with assist Alden Chavarria, LOAD MIXER Pager: [phone] Inpatient Physical Therapy Problem: Acute Rehab Services [...] sit/sit to supine -- Bed Mobility Goal, [place] Level supervision required -- Bed Mobility Goal, [...] - 3 days -- Gait Training Goal, [place] Level supervision required -- Gait Training Goal, [...] days -- Transfer Training Goal, Activity Type ihl-vv-swjyy/ouukk-or-gqc;kgg-ii-njwad/zmmkd-gz-wth;toilet -- Transfer Train Goal, [place] Level supervision required -- Transfer Training Goal, [...] keeping present for 2 days per family. Maintenance Fitter noted of frustrations, house keeping sent to room. Patient offered showered twice, refused. at bedside, frustrated that shower not complete, informed that patient had refused several times. requesting to see RESTAURANT CREW MEMBER, paged sent to Martha, will come to bedside (middle of consult). not willing to wait, Martha notified that family had gone home. Encouraged to come for morning rounds a t 8am. Diabetes team at bedside - insulin adjustments made. Call cabello in reach. Continue to monitor. PLAN MOVING FORWARD: Ambulate, dressing changes BID, Please change drsg at 4am per Martha RESTAURANT CREW MEMBER request. INDIVIDUALIZED FALL PREVENTION INTERVENTIONS: Patient-specific fall [...] levels on the lower side, 60ml of Noble juice given after a FS of 80. [...] Conf 07/13/17 0502 Interdisciplinary Rounds/Family Conf Participants rn field case manager;dietitian/nutrition services;nursing;occupational therapy;patient;pharmacy;physical therapy;physician Plan of [...] Anticipated Discharge Disposition: home with assist Pager: [phone] CLARISSA SEGAL, PT 07/12/2017 Physical Therapy Rehabilitation [...] to sit/sit to supine Bed Mobility Goal, [place] Level supervision required Bed Mobility Goal, Additional Goal adheres to psternal precautions for transfer Goal: Gait Training Goal Stand Alone Therapy Goal Outcome: Ongoing (Interventions Implemented as Appropriate) 07/12/17 1225 Gait Training Goal Gait Training Goal, Date Established 07/12/17 Gait Training Goal, Time to Achieve 2 - 3 days Gait Training Goal, [place] Level supervision required Gait Training Goal, Assist [...] 3 days Transfer Training Goal, Activity Type tkw-sx-lolli/kicza-zk-mlr;vbl-yl-chlgo/unkbl-vl-hly;toilet Transfer Train Goal, [place] Level supervision required Transfer Training Goal, Additional Goal adheres to sternal precautions during transfer Consult Note - Octavia Vaughn RN - 07/12/2017 10:50 AM EST [facility] CARDIAC REHABILITATION Gregory Hoang was seen today [...] IV site, amio to other piv and PATIENT NAVIGATOR at bedside to help assess, IV removed. [...] Outcome: Ongoing (Interventions Implemented as Appropriate) 07/11/17199907/11/17200907/12/17 [facility] Daily Care Interventions Self-Care Promotion -- -- [...] staff, he stood and marched in place. [place] weak, wanting to sit back down. Remained [...] Outcome: Ongoing (Interventions Implemented as Appropriate) 07/05/17 4956 Mutuality/Individual Preferences What Anxieties, Fears or Concerns [...] Health/Prescription Coverage: Primary Insurance: MEDICARE Secondary Insurance: [employer] [place] Prescription Coverage: yes Preferred Pharmacy: [facility] [place] Other: none Primary Care Provider: Lovely Vicente MD [phone] Patient/Caregiver Goals of Treatment:live and get my breath back Potential Needs for Transition of Care: Rehab/SNF: [facility]; [facility] Home Health: NA DME: TBD Dialysis: na Community Resources: available Transportation: yes Other: none Anticipated Barriers to Discharge/Special Considerations: none Plan: Likely SNF Rehab before home A member of the Care Management team will continue to monitor progress, follow for continuity of care and assist with transition of care planning. ERLIN Weiss Pager: [phone] Consult Note - Katerin Azul RN - [...] management and to provide a review of [facility]pc diabetes care. Diabetes History: Gregory Hoang has [...] patient W/E coverage, Dr. Jeane Tatum, pager [phone] Katerin Patel. STACIE Azul Endocrinology Diabetes Management Pager [phone] Plan of Care - Stephanie Godoy RN [...] Webber MD - 07/07/2017 6:27 PM EST [facility] [place] Operative Note Patient Name: Gregory Hoang : [id number] MR#: [id number] Case Date: 07/07/2017 Surgeon: Surgeon(s) and Role: * Yuan Webber MD - Primary * Michael Drake PA - Physician Senior Business Manager * Linda Flores PA - Physician Senior Business Manager Preoperative diagnosis: 3VD Postoperative diagnosis: CAD, severe [...] not need to include opening and closing). YUNA WEBBER MD 07/07/2017 Brief Op Note - Yuan Webber MD - 07/07/2017 5:55 PM EST Brief Operative Note Patient Name: Gregory Hoang : [id number] MR#: [id number] Case Date: 07/07/2017 Surgeon: Surgeon(s) and Role: * Yuan Webber MD - Primary * Michael Drake PA - Physician Senior Business Manager * Linda Flores PA - Physician Senior Business Manager Preoperative diagnosis: 3VD Postoperative diagnosis: CAD, severe [...] major CV events such as , stroke, [place], repeat revascularization compared to PCI). In this [...] code status: Full Code Katty Jovani, MS3 [facility] Cardiology S1 (Pager [phone]) Plan of Care - Emelia Ibarra RN [...] hospital and ruled infor non-ST segment elevation [place]. This almost certainly represents the residual of [...] at [facility] MAIN OR Social History: Social [...] with other involved physicians Yuan Webber MD [phone] Med Student Progress Note - Jovani Katty [...] major CV events such as , stroke, [place], repeat revascularization compared to PCI). 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 Lasix given in computer lab para professional, 1.4 L out at this time. Pt [...] Cardiology Vitaliy Nobles MD [facility] ER [address] CARDIOLOGY [place], [place] [address] (Wo rk) Scheduled Orders Name [...] procedure are i n the results section. 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 SCAN 07/15/2017 12:00 Res ults for this [...] Routine 07/08/2017 4:00 Results f or this ([facility] [place]) AM EST procedure are i n the [...] Yes 07/07/2017 1:35 CAD VEIN(S) FOR [facility] PM EST 0.31) @CABG, TWO VENOUS GRAFTS Yes 07/07/2017 1:35 CAD & ARTERIAL GRAFT ([facility] PM EST 7.93) @CABG, USING ARTERIAL Yes 07/07/2017 1:35 CAD GRAFT;SINGLE ARTERIAL PM EST GRAFT ([facility] 33.75) PREPARE COAG FACTORS STAT 07/07/2017 1:25 [...] Routine 07/06/2017 7:40 Results f or this ([facility]) PM EST procedure are i n the [...] Timed 07/06/2017 2:10 Results f or this ([facility]) PM EST procedure are i n the [...] section. TYPE AND SCREEN Routine 07/06/2017 12:00 ([facility]/SHANDA) PM EST APTT STAT 07/06/2017 11:24 Results [...] Routine 07/06/2017 8:10 Results f or this ([facility]) AM EST procedure are i n the [...] Routine 07/06/2017 2:20 Results f or this ([facility]) AM EST procedure are i n the [...] Routine 07/05/2017 8:20 Results f or this ([facility] [place]) PM EST procedure are i n the [...] Timed 07/05/2017 4:55 Results f or this ([facility] PM EST procedure are i [...] [place] at 08/19/2017 10:30 AM Martha Teague PMO LEAD IMG DX ORDERABLES SCAN DOC: 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 (07/15/2017 12:00 AM EST) Narrative 07/15/2017 12:00 [...] Signature POC Glucose 186 65 - 199 [facility] mg/dL [facility] Comment: Supplemental ranges: <140 mg/dL before meals <180 mg/dL all other times of the day Specimen Anatomical Collection Method Collection Time Receive d Time (Source) Location / / Volume Laterality Blood specimen 07/14/2017 11:56 7 (specimen) AM EST 11:56 AM EST Yuan Webber MD POINT OF CARE TEST ORDERABLE S Performing Organization Address City/State/ZIP Code Phon e Number [address] POCT Glucose (07/14/2017 7:52 AM EST) athologist Signature POC Glucose 126 65 - 199 [facility] mg/dL [facility] Comment: Supplemental ranges: <140 mg/dL before meals <180 mg/dL all other times of the day Specimen Anatomical Collection Method Collection Time Receive d Time (Source) Location / / Volume Laterality Blood specimen 07/14/2017 7:52 AM 017 7:52 (specimen) EST AM EST Yuan Webber MD POINT OF CARE TEST ORDERABLE S Performing Organization Address City/[facility]/[place] [address] (ABNORMAL) Prothrombin Time (07/14/2017 4:46 AM EST) P athologist Signature PT 26.4 (H) 11.8 - 14.0 [facility] LABORATORY INR 2.4 (H) 0.9 - 1.1 [facility] [...] Wilson APRN HEMATOLOGY ORDERABLES Performing Organization Address City/[facility]/ZIP Code Phon e Number [address] Potassium (07/14/2017 4:46 AM EST) athologist Signature Potassium 4.3 3.5 - 5.0 [facility]/L [facility] Comment: Please note: ??Patients with [...] Wilson APRN CHEMISTRY ORDERABLES Performing Organization Address City/[facility]/[place] [address] POCT Glucose (07/14/2017 4:34 AM EST) athologist Signature POC Glucose 115 65 - 199 [facility] mg/dL [facility] Comment: Supplemental ranges: <140 mg/dL before meals <180 mg/dL all other times of the day Specimen Anatomical Collection Method Collection Time Receive d Time (Source) Location / / Volume Laterality Blood specimen 07/14/2017 4:34 AM 017 4:34 (specimen) EST AM EST Yuan Webber MD POINT OF CARE TEST ORDERABLE S Performing Organization Address City/[facility]/[place] [address] POCT Glucose (07/13/2017 11:33 PM EST) athologist Signature POC Glucose 132 65 - 199 [place] mg/dL [facility] Comment: Supplemental ranges: <140 mg/dL before meals <180 mg/dL all other times of the day Specimen Anatomical Collection Method Collection Time Receive d Time (Source) Location / / Volume Laterality Blood specimen 07/13/2017 11:33 7 (specimen) PM EST 11:33 PM EST Yuan Webber MD POINT OF CARE TEST ORDERABLE S Performing Organization Address City/State/ZIP Code Phon e Number [address] POCT Glucose (07/13/2017 9:25 PM EST) athologist Signature POC Glucose 121 65 - 199 [place] [facility] mg/dL [facility] Comment: Supplemental ranges: <140 mg/dL before meals <180 mg/dL all other times of the day Specimen Anatomical Collection Method Collection Time Receive d Time (Source) Location / / Volume Laterality Blood specimen 07/13/2017 9:25 PM 017 9:25 (specimen) EST PM EST Yuan Webber MD POINT OF CARE TEST ORDERABLE S Performing Organization Address City/State/ZIP Code Phon e Number [address] POCT Glucose (07/13/2017 4:55 PM EST) athologist Signature POC Glucose 79 65 - 199 [facility] mg/dL [facility] Comment: Supplemental ranges: <140 mg/dL before meals <180 mg/dL all other times of the day Specimen Anatomical Collection Method Collection Time Receive d Time (Source) Location / / Volume Laterality Blood specimen 07/13/2017 4:55 PM 017 4:55 (specimen) EST PM EST Yuan Webber MD POINT OF CARE TEST ORDERABLE S Performing Organization Address City/State/[place] [address] POCT Glucose (07/13/2017 11:16 AM EST) athologist Signature POC Glucose 163 65 - 199 [place] mg/dL [facility] Comment: Supplemental ranges: <140 mg/dL before meals <180 mg/dL all other times of the day Specimen Anatomical Collection Method Collection Time Receive d Time (Source) Location / / Volume Laterality Blood specimen 07/13/2017 11:16 7 (specimen) AM EST 11:16 AM EST Yuan Webber MD POINT OF CARE TEST ORDERABLE S Performing Organization Address City/State/[place] [address] POCT Glucose (07/13/2017 8:07 AM EST) athologist Signature POC Glucose 96 65 - 199 [facility] Comment: Supplemental ranges: <140 mg/dL before meals <180 mg/dL all other times of the day Specimen Anatomical Collection Method Collection Time Receive d Time (Source) Location / / Volume Laterality Blood specimen 07/13/2017 8:07 AM 017 8:07 (specimen) EST AM EST Yuan Webber MD POINT OF CARE TEST ORDERABLE S Performing Organization Address City/State/ZIP Code Phon e Number [address] (ABNORMAL) Prothrombin Time (07/13/2017 4:26 AM EST) athologist Signature PT 20.8 (H) 11.8 - 14.0 [facility] LABORATORY INR 1.8 (H) 0.9 - 1.1 [facility] [...] Organization Address City/State/[place] [address] (ABNORMAL) Basic Metabolic Panel (non-fasting) (07/13/2017 4:26 AM EST) athologist Signature Glucose Lvl 95 65 - 199 [facility] Comment: Diabetes: >=200 mg/dL plus symp toms BUN 25 (H) 10 - 20 mg/dL [facility] Anion Gap 13 5 - 15 mmol/L [facility] Calcium 7.7 (L) 8.5 - 10.5 mg/dL [facility] Estimated GFR 60 >=60 [facility] Comment: The reported eGFR should be multiplied b y 1.2 for patients. The MDRD is not an appropriate measure o f renal function for patients with body mass extremes or in patients with acute kidney failure. http://[email or web address]/DHnkdep http://Fanwards/DHMCnkf Specimen Anatomical Collection Method Collection Time Receive d Time (Source) Location / / Volume Laterality Blood specimen 07/13/2017 4:26 AM 017 4:46 (specimen) EST AM EST Resulting Agency Comment Spec In Lab Makayla Wilson APRN CHEMISTRY ORDERABLES Performing Organization Address City/State/[place] [address] POCT Glucose (07/13/2017 3:52 AM EST) P athologist Signature POC Glucose 93 65 - 199 [facility] mg/dL [facility] Comment: Supplemental ranges: [...] Address City/State/ZIP Code Phon e Number [address] POCT Glucose (07/13/2017 12:21 AM EST) athologist Signature POC Glucose 80 65 - 199 [place] [facility] mg/dL [facility] Comment: Supplemental ranges: <140 mg/dL before meals <180 mg/dL all other times of the day Specimen Anatomical Collection Method Collection Time Receive d Time (Source) Location / / Volume Laterality Blood specimen 07/13/2017 12:21 7 (specimen) AM EST 12:21 AM EST Yuan Webber MD POINT OF CARE TEST ORDERABLE S Performing Organization Address City/State/ZIP Code Phon e Number [address] POCT Glucose (07/12/2017 8:22 PM EST) athologist Signature POC Glucose 119 65 - 199 [place] mg/dL [facility] Comment: Supplemental ranges: <140 mg/dL before meals <180 mg/dL all other times of the day Specimen Anatomical Collection Method Collection Time Receive d Time (Source) Location / / Volume Laterality Blood specimen 07/12/2017 8:22 PM 017 8:22 (specimen) EST PM EST Yuan Webber MD POINT OF CARE TEST ORDERABLE S Performing Organization Address City/State/[place] [address] POCT Glucose (07/12/2017 4:02 PM EST) athologist Signature POC Glucose 114 65 - 199 [place] [facility] mg/dL [facility] Comment: Supplemental ranges: <140 mg/dL before meals <180 mg/dL all other times of the day Specimen Anatomical Collection Method Collection Time Receive d Time (Source) Location / / Volume Laterality Blood specimen 07/12/2017 4:02 PM 017 4:02 (specimen) EST PM EST Yuan Webber MD POINT OF CARE TEST ORDERABLE S Performing Organization Address City/State/ZIP Code Phon e Number [address] POCT Glucose (07/12/2017 11:28 AM EST) athologist Signature POC Glucose 164 65 - 199 [facility] Comment: Supplemental ranges: <140 mg/dL before meals <180 mg/dL all other times of the day Specimen Anatomical Collection Method Collection Time Receive d Time (Source) Location / / Volume Laterality Blood specimen 07/12/2017 11:28 7 (specimen) AM EST 11:28 AM EST Yuan Webber MD POINT OF CARE TEST ORDERABLE S Performing Organization Address City/State/ZIP Code Phon e Number [address] POCT Glucose (07/12/2017 7:34 AM EST) athologist Signature POC Glucose 109 65 - 199 [facility] Comment: Supplemental ranges: <140 mg/dL before meals <180 mg/dL all other times of the day Specimen Anatomical Collection Method Collection Time Receive d Time (Source) Location / / Volume Laterality Blood specimen 07/12/2017 7:34 AM 017 7:34 (specimen) EST AM EST Yuan Webber MD POINT OF CARE TEST ORDERABLE S Performing Organization Address City/State/[place] [address] (ABNORMAL) Basic Metabolic Panel (non-fasting) (07/12/2017 4:11 AM EST) athologist Signature Glucose Lvl 92 65 - 199 [facility] mg/dL [facility] Comment: Diabetes: >=200 mg/dL plus symp toms BUN 31 (H) 10 - 20 mg/dL [facility] Creatinine 1.23 0.80 - 1.50 [...] 107 mmol/L [facility] CO2 Not Perf 22 - 31 mmol/L [facility] Comment: Add-on request. Sample too old to perform test. Anion Gap Not Calculated 5 - 15 mmol/L [facility] Calcium 8.1 (L) 8.5 - 10.5 mg/dL [facility] Estimated GFR 58 (L) >=60 [facility] Comment: The reported eGFR should be multiplied b y 1.2 for patients. The MDRD is not an appropriate measure o f renal function for patients with body mass extremes or in patients with acute kidney failure. http://Fanwards/DHnkdep http://Fanwards/DHMCnkf Specimen Anatomical Collection Method Collection Time Receive d Time (Source) Location / / Volume Laterality Blood specimen 07/12/2017 4:11 AM 017 8:57 (specimen) EST AM EST Resulting Agency Comment Spec In Lab Makayla Wilson STACIE CHEMISTRY ORDERABLES Performing Organization Address City/State/[place] [address] (ABNORMAL) Prothrombin Time (07/12/2017 4:11 AM EST) P athologist Signature PT 15.4 (H) 11.8 - 14.0 [facility] LABORATORY INR 1.2 (H) 0.9 - 1.1 [facility] [...] Wilson APRN HEMATOLOGY ORDERABLES Performing Organization Address City/[facility]/[place] [address] Potassium (07/12/2017 4:11 AM EST) P athologist Signature Potassium 3.8 3.5 - 5.0 [facility] mmol/L [facility] Comment: Please note: ??Patients with [...] Wilson STACIE CHEMISTRY ORDERABLES Performing Organization Address City/[facility]/[place] [address] POCT Glucose (07/12/2017 4:10 AM EST) P athologist Signature POC Glucose 90 65 - 199 [facility] Comment: Supplemental ranges: <140 mg/dL before meals <180 mg/dL all other times of the day Specimen Anatomical Collection Method Collection Time Receive d Time (Source) Location / / Volume Laterality Blood specimen 07/12/2017 4:10 AM 017 4:10 (specimen) EST AM EST Yuan Webber MD POINT OF CARE TEST ORDERABLE S Performing Organization Address City/[facility]/[place] [address] POCT Glucose (07/11/2017 11:57 PM EST) athologist Signature POC Glucose 98 65 - 199 [facility] mg/dL [facility] Comment: Supplemental ranges: <140 mg/dL before meals <180 mg/dL all other times of the day Specimen Anatomical Collection Method Collection Time Receive d Time (Source) Location / / Volume Laterality Blood specimen 07/11/2017 11:57 7 (specimen) PM EST 11:57 PM EST Yuan Webber MD POINT OF CARE TEST ORDERABLE S Performing Organization Address City/State/[place] [address] POCT Glucose (07/11/2017 8:32 PM EST) athologist Signature POC Glucose 146 65 - 199 [facility] Comment: Supplemental ranges: <140 mg/dL before meals <180 mg/dL all other times of the day Specimen Anatomical Collection Method Collection Time Receive d Time (Source) Location / / Volume Laterality Blood specimen 07/11/2017 8:32 PM 017 8:32 (specimen) EST PM EST Yuan Webber MD POINT OF CARE TEST ORDERABLE S Performing Organization Address City/State/[place] [address] XR Chest PA & [...] e xtubated, left chest tube removed, and Young Harris-Suzi catheter removed since the study. Atelectasis at [...] e xtubated, left chest tube removed, and Young Harris-Suzi catheter removed since the study. Atelectasis at [...] POC Glucose 223 (H) 65 - 199 [facility] mg/dL [facility] Comment: Supplemental ranges: <140 mg/dL before meals <180 mg/dL all other times of the day Specimen Anatomical Collection Method Collection Time Receive d Time (Source) Location / / Volume Laterality Blood specimen 07/11/2017 4:05 PM 017 4:05 (specimen) EST PM EST Yuan Webber MD POINT OF CARE TEST ORDERABLE S Performing Organization Address City/State/[place] [address] POCT Glucose (07/11/2017 11:55 AM EST) athologist Signature POC Glucose 176 65 - 199 [facility] mg/dL [facility] Comment: Supplemental ranges: <140 mg/dL before meals <180 mg/dL all other times of the day Specimen Anatomical Collection Method Collection Time Receive d Time (Source) Location / / Volume Laterality Blood specimen 07/11/2017 11:55 7 (specimen) AM EST 11:55 AM EST Yuan Webber MD POINT OF CARE TEST ORDERABLE S Performing Organization Address City/State/ZIP Code Phon e Number [address] POCT Glucose (07/11/2017 7:53 AM EST) athologist Signature POC Glucose 189 65 - 199 [place] mg/dL [facility] Comment: Supplemental ranges: <140 mg/dL before meals <180 mg/dL all other times of the day Specimen Anatomical Collection Method Collection Time Receive d Time (Source) Location / / Volume Laterality Blood specimen 07/11/2017 7:53 AM 017 7:53 (specimen) EST AM EST Yuan Webber MD POINT OF CARE TEST ORDERABLE S Performing Organization Address City/State/[place] [address] POCT Glucose (07/11/2017 4:22 AM EST) athologist Signature POC Glucose 151 65 - 199 [place] mg/dL [facility] Comment: Supplemental ranges: <140 mg/dL before meals <180 mg/dL all other times of the day Specimen Anatomical Collection Method Collection Time Receive d Time (Source) Location / / Volume Laterality Blood specimen 07/11/2017 4:22 AM 017 4:22 (specimen) EST AM EST Yuan Webber MD POINT OF CARE TEST ORDERABLE S Performing Organization Address City/State/[place] [address] Potassium (07/11/2017 2:20 AM EST) athologist Signature Potassium 4.5 3.5 - 5.0 [facility] mmol/L [facility] Comment: Please note: ??Patients with [...] Webber MD CHEMISTRY ORDERABLES Performing Organization Address City/[facility]/ZIP Code Phon e Number [address] POCT Glucose (07/11/2017 12:17 AM EST) athologist Signature POC Glucose 162 65 - 199 [facility] mg/dL [facility] Comment: Supplemental ranges: <140 mg/dL before meals <180 mg/dL all other times of the day Specimen Anatomical Collection Method Collection Time Receive d Time (Source) Location / / Volume Laterality Blood specimen 07/11/2017 12:17 7 (specimen) AM EST 12:17 AM EST Yuan Webber MD POINT OF CARE TEST ORDERABLE S Performing Organization Address City/[facility]/ZIP Code Phon e Number [address] POCT Glucose (07/10/2017 8:47 PM EST) athologist Signature POC Glucose 191 65 - 199 [facility] Comment: Supplemental ranges: <140 mg/dL before meals <180 mg/dL all other times of the day Specimen Anatomical Collection Method Collection Time Receive d Time (Source) Location / / Volume Laterality Blood specimen 07/10/2017 8:47 PM 017 8:47 (specimen) EST PM EST Yuan Webber MD POINT OF CARE TEST ORDERABLE S Performing Organization Address City/[facility]/ZIP Code Phon e Number [address] POCT Glucose (07/10/2017 4:06 PM EST) athologist Signature POC Glucose 131 65 - 199 [place] [facility] mg/dL [facility] Comment: Supplemental ranges: <140 mg/dL before meals <180 mg/dL all other times of the day Specimen Anatomical Collection Method Collection Time Receive d Time (Source) Location / / Volume Laterality Blood specimen 07/10/2017 4:06 PM 017 4:06 (specimen) EST PM EST Yuan Webber MD POINT OF CARE TEST ORDERABLE S Performing Organization Address City/State/ZIP Code Phon e Number [address] POCT Glucose (07/10/2017 3:08 PM EST) athologist Signature POC Glucose 151 65 - 199 [place] [facility] mg/dL [facility] Comment: Supplemental ranges: <140 mg/dL before meals <180 mg/dL all other times of the day Specimen Anatomical Collection Method Collection Time Receive d Time (Source) Location / / Volume Laterality Blood specimen 07/10/2017 3:08 PM 017 3:08 (specimen) EST PM EST Yuan Webber MD POINT OF CARE TEST ORDERABLE S Performing Organization Address City/[facility]/[place] [address] POCT Glucose (07/10/2017 2:25 PM EST) athologist Signature POC Glucose 146 65 - 199 [place] mg/dL [facility] Comment: Supplemental ranges: <140 mg/dL before meals <180 mg/dL all other times of the day Specimen Anatomical Collection Method Collection Time Receive d Time (Source) Location / / Volume Laterality Blood specimen 07/10/2017 2:25 PM 017 2:25 (specimen) EST PM EST Yuan Webber MD POINT OF CARE TEST ORDERABLE S Performing Organization Address City/State/ZIP Code Phon e Number [address] POCT Glucose (07/10/2017 1:23 PM EST) athologist Signature POC Glucose 166 65 - 199 [facility] mg/dL [facility] Comment: Supplemental ranges: <140 mg/dL before meals <180 mg/dL all other times of the day Specimen Anatomical Collection Method Collection Time Receive d Time (Source) Location / / Volume Laterality Blood specimen 07/10/2017 1:23 PM 017 1:23 (specimen) EST PM EST Yuan Webber MD POINT OF CARE TEST ORDERABLE S Performing Organization Address City/State/ZIP Code Phon e Number [address] POCT Glucose (07/10/2017 11:52 AM EST) P athologist Signature POC Glucose 157 65 - 199 [place] [facility] mg/dL [facility] Comment: Supplemental ranges: <140 mg/dL before meals <180 mg/dL all other times of the day Specimen Anatomical Collection Method Collection Time Receive d Time (Source) Location / / Volume Laterality Blood specimen 07/10/2017 11:52 7 (specimen) AM EST 11:52 AM EST Yuan Webber MD POINT OF CARE TEST ORDERABLE S Performing Organization Address City/[facility]/ZIP Code Phon e Number [address] POCT Glucose (07/10/2017 11:01 AM EST) athologist Signature POC Glucose 158 65 - 199 [place] [facility] mg/dL [facility] Comment: Supplemental ranges: <140 mg/dL before meals <180 mg/dL all other times of the day Specimen Anatomical Collection Method Collection Time Receive d Time (Source) Location / / Volume Laterality Blood specimen 07/10/2017 11:01 7 (specimen) AM EST 11:01 AM EST Yuan Webber MD POINT OF CARE TEST ORDERABLE S Performing Organization Address City/State/[place] [address] POCT Glucose (07/10/2017 9:54 AM EST) P athologist Signature POC Glucose 160 65 - 199 [place] mg/dL [facility] Comment: Supplemental ranges: <140 mg/dL before meals <180 mg/dL all other times of the day Specimen Anatomical Collection Method Collection Time Receive d Time (Source) Location / / Volume Laterality Blood specimen 07/10/2017 9:54 AM 017 9:54 (specimen) EST AM EST Yuan Webber MD POINT OF CARE TEST ORDERABLE S Performing Organization Address City/State/ZIP Code Phon e Number [address] POCT Glucose (07/10/2017 8:58 AM EST) P athologist Signature POC Glucose 183 65 - 199 [place] mg/dL [facility] Comment: Supplemental ranges: <140 mg/dL before meals <180 mg/dL all other times of the day Specimen Anatomical Collection Method Collection Time Receive d Time (Source) Location / / Volume Laterality Blood specimen 07/10/2017 8:58 AM 017 8:58 (specimen) EST AM EST Yuan Webber MD POINT OF CARE TEST ORDERABLE S Performing Organization Address City/[facility]/ZIP Code Phon e Number [address] POCT Glucose (07/10/2017 8:01 AM EST) athologist Signature POC Glucose 173 65 - 199 [place] mg/dL [facility] Comment: Supplemental ranges: <140 mg/dL before meals <180 mg/dL all other times of the day Specimen Anatomical Collection Method Collection Time Receive d Time (Source) Location / / Volume Laterality Blood specimen 07/10/2017 8:01 AM 017 8:01 (specimen) EST AM EST Yuan Webber MD POINT OF CARE TEST ORDERABLE S Performing Organization Address City/[facility]/ZIP Code Phon e Number [address] POCT Glucose (07/10/2017 7:05 AM EST) athologist Signature POC Glucose 166 65 - 199 [place] mg/dL [facility] Comment: Supplemental ranges: <140 mg/dL before meals <180 mg/dL all other times of the day Specimen Anatomical Collection Method Collection Time Receive d Time (Source) Location / / Volume Laterality Blood specimen 07/10/2017 7:05 AM 017 7:05 (specimen) EST AM EST Yuan Webber MD POINT OF CARE TEST ORDERABLE S Performing Organization Address City/State/ZIP Code Phon e Number [address] POCT Glucose (07/10/2017 6:00 AM EST) P athologist Signature POC Glucose 162 65 - 199 [facility] Comment: Supplemental ranges: <140 mg/dL before meals <180 mg/dL all other times of the day Specimen Anatomical Collection Method Collection Time Receive d Time (Source) Location / / Volume Laterality Blood specimen 07/10/2017 6:00 AM 017 6:00 (specimen) EST AM EST Yuan Webber MD POINT OF CARE TEST ORDERABLE S Performing Organization Address City/State/ZIP Code Phon e Number [address] (ABNORMAL) Differential, Automated (07/10/2017 4:28 AM EST) Patholo gist Method Time Signature Neutrophils % 87.9 % [facility] LABORATORY Neutr Abs (ANC) 10.70 (H) 1.70 - [facility] 6.10 [facility] x10(3)/[facility] L LABORATORY Lymphocytes % 3.9 % [facility] LABORATORY Lymphocytes Abs 0.5 (L) 0.9 - 3.2 [facility] x10(3)/[facility] LABORATORY Monocytes % 7.0 % [facility] LABORATORY Monocyte Abs 0.8 0.3 - 0.9 [facility] x10(3)/[facility] LABORATORY Eosinophils % 0.3 % [facility] LABORATORY Eosinophils Abs 0.0 0.0 - 0.4 [facility] x10(3)/[facility] LABORATORY Basophils % 0.2 % [facility] LABORATORY Basophils Abs 0.0 0.0 - 0.1 [facility] x10(3)/[facility] LABORATORY Immature Gran % 0.70 % [facility] [...] Organization Address City/State/[place] [address] (ABNORMAL) Hemogram (07/10/2017 4:28 AM EST) Analysis Performed At Patho logist Time Signature WBC 12.2 (H) 4.0 - 9.5 [facility] x10(3)/[facility] LABORATORY RBC 3.31 (L) 4.58 - [facility] 5.54 [facility] x10(6)/[facility] LABORATORY Hemoglobin 9.8 (L) 13.7 - [facility] 16.5 gm/dL [facility] Hematocrit 30.0 (L) 40.5 - [facility] 48.5 % [facility] MCV 90.6 82.9 - [facility] 93.1 [facility] LABORATORY MCH 29.6 27.5 - [facility] 32.1 pg [facility] MCHC 32.7 32.0 - [facility] 35.7 gm/dL [facility] Platelets 135 (L) 145 - 357 [facility] x10(3)/[facility] LABORATORY RDWSD 50.8 (H) 36.0 - [facility] 45.0 [facility] LABORATORY RDWCV 15.4 (H) 11.4 - [facility] 13.8 % [facility] MPV 10.0 7.6 - 12.9 [facility] LABORATORY nRBC % Auto 0.0 % [facility]ATORY nRBC Abs Auto 0.000 0.000 - [facility] 0.000 [facility] x10(3)/[facility] LABORATORY Specimen Anatomical Collection Method Collection Time Receive d Time (Source) Location / / Volume Laterality Blood specimen 07/10/2017 4:28 AM 017 4:36 (specimen) EST AM EST Resulting Agency Comment Spec In Lab Yuan Webber MD HEMATOLOGY ORDERABLES Performing Organization Address City/State/[place] [address] (ABNORMAL) Basic Metabolic Panel (non-fasting) (07/10/2017 4:28 AM EST) athologist Signature Glucose Lvl 178 65 - 199 [facility] mg/dL [facility] Comment: Diabetes: >=200 mg/dL plus symp toms BUN 20 10 - 20 mg/dL [facility] [...] estions. Chloride 107 98 - 107 mmol/L [facility] CO2 21 (L) 22 - 31 mmol/L [facility] Anion Gap 15 5 - 15 mmol/L [facility] Calcium 7.4 (L) 8.5 - 10.5 mg/dL [facility] LABORATORY Estimated GFR 60 >=60 [facility] Comment: The reported eGFR should be multiplied b y 1.2 for patients. The MDRD is not an appropriate measure o f renal function for patients with body mass extremes or in patients with acute kidney failure. [email or web address] [email or web address] Specimen Anatomical Collection Method Collection Time Receive d Time (Source) Location / / Volume Laterality Blood specimen 07/10/2017 4:28 AM 017 4:36 (specimen) EST AM EST Resulting Agency Comment Spec In Lab Yuan Webber MD CHEMISTRY ORDERABLES Performing Organization Address City/State/[place] [address] POCT Glucose (07/10/2017 4:26 AM EST) athologist Signature POC Glucose 176 65 - 199 [place] mg/dL [facility] Comment: Supplemental ranges: <140 mg/dL before meals <180 mg/dL all other times of the day Specimen Anatomical Collection Method Collection Time Receive d Time (Source) Location / / Volume Laterality Blood specimen 07/10/2017 4:26 AM 017 4:26 (specimen) EST AM EST Yuan Webber MD POINT OF CARE TEST ORDERABLE S Performing Organization Address City/State/[place] [address] (ABNORMAL) POCT Glucose (07/10/2017 3:06 AM EST) athologist Signature POC Glucose 204 (H) 65 - 199 [place] mg/dL [facility] Comment: Supplemental ranges: <140 mg/dL before meals <180 mg/dL all other times of the day Specimen Anatomical Collection Method Collection Time Receive d Time (Source) Location / / Volume Laterality Blood specimen 07/10/2017 3:06 AM 017 3:06 (specimen) EST AM EST Yuan Webber MD POINT OF CARE TEST ORDERABLE S Performing Organization Address City/State/[place] [address] (ABNORMAL) POCT Glucose (07/10/2017 2:10 AM EST) athologist Signature POC Glucose 203 (H) 65 - 199 [place] mg/dL [facility] Comment: Supplemental ranges: <140 mg/dL before meals <180 mg/dL all other times of the day Specimen Anatomical Collection Method Collection Time Receive d Time (Source) Location / / Volume Laterality Blood specimen 07/10/2017 2:10 AM 017 2:10 (specimen) EST AM EST Yuan Webber MD POINT OF CARE TEST ORDERABLE S Performing Organization Address City/State/ZIP Code Phon e Number [address] POCT Glucose (07/10/2017 1:09 AM EST) P athologist Signature POC Glucose 196 65 - 199 [place] mg/dL [facility] Comment: Supplemental ranges: <140 mg/dL before meals <180 mg/dL all other times of the day Specimen Anatomical Collection Method Collection Time Receive d Time (Source) Location / / Volume Laterality Blood specimen 07/10/2017 1:09 AM 017 1:09 (specimen) EST AM EST Yuan Webber MD POINT OF CARE TEST ORDERABLE S Performing Organization Address City/State/ZIP Code Phon e Number [address] POCT Glucose (07/10/2017 12:10 AM EST) P athologist Signature POC Glucose 173 65 - 199 [place] mg/dL [facility] Comment: Supplemental ranges: <140 mg/dL before meals <180 mg/dL all other times of the day Specimen Anatomical Collection Method Collection Time Receive d Time (Source) Location / / Volume Laterality Blood specimen 07/10/2017 12:10 7 (specimen) AM EST 12:10 AM EST Yuan Webber MD POINT OF CARE TEST ORDERABLE S Performing Organization Address City/State/ZIP Code Phon e Number [address] POCT Glucose (07/09/2017 11:01 PM EST) P athologist Signature POC Glucose 140 65 - 199 [facility] SU mg/dL [facility] Comment: Supplemental ranges: <140 mg/dL before meals <180 mg/dL all other times of the day Specimen Anatomical Collection Method Collection Time Receive d Time (Source) Location / / Volume Laterality Blood specimen 07/09/2017 11:01 7 (specimen) PM EST 11:01 PM EST Yuan Webber MD POINT OF CARE TEST ORDERABLE S Performing Organization Address City/State/ZIP Code Phon e Number [address] POCT Glucose (07/09/2017 10:05 PM EST) athologist Signature POC Glucose 144 65 - 199 [place] mg/dL [facility] Comment: Supplemental ranges: <140 mg/dL before meals <180 mg/dL all other times of the day Specimen Anatomical Collection Method Collection Time Receive d Time (Source) Location / / Volume Laterality Blood specimen 07/09/2017 10:05 7 (specimen) PM EST 10:05 PM EST Yuan Webber MD POINT OF CARE TEST ORDERABLE S Performing Organization Address City/State/ZIP Code Phon e Number [address] POCT Glucose (07/09/2017 9:31 PM EST) athologist Signature POC Glucose 121 65 - 199 [place] mg/dL [facility] Comment: Supplemental ranges: <140 mg/dL before meals <180 mg/dL all other times of the day Specimen Anatomical Collection Method Collection Time Receive d Time (Source) Location / / Volume Laterality Blood specimen 07/09/2017 9:31 PM 017 9:31 (specimen) EST PM EST Yuan Webber MD POINT OF CARE TEST ORDERABLE S Performing Organization Address City/State/[place] [address] POCT Glucose (07/09/2017 9:03 PM EST) athologist Signature POC Glucose 98 65 - 199 [place] mg/dL [facility] Comment: Supplemental ranges: <140 mg/dL before meals <180 mg/dL all other times of the day Specimen Anatomical Collection Method Collection Time Receive d Time (Source) Location / / Volume Laterality Blood specimen 07/09/2017 9:03 PM 017 9:03 (specimen) EST PM EST Yuan Webber MD POINT OF CARE TEST ORDERABLE S Performing Organization Address City/State/ZIP Code Phon e Number [address] POCT Glucose (07/09/2017 8:09 PM EST) athologist Signature POC Glucose 117 65 - 199 [place] mg/dL [facility] Comment: Supplemental ranges: <140 mg/dL before meals <180 mg/dL all other times of the day Specimen Anatomical Collection Method Collection Time Receive d Time (Source) Location / / Volume Laterality Blood specimen 07/09/2017 8:09 PM 017 8:09 (specimen) EST PM EST Yuan Webber MD POINT OF CARE TEST ORDERABLE S Performing Organization Address City/[facility]/ZIP Code Phon e Number [address] POCT Glucose (07/09/2017 5:40 PM EST) athologist Signature POC Glucose 155 65 - 199 [place] mg/dL [facility] Comment: Supplemental ranges: <140 mg/dL before meals <180 mg/dL all other times of the day Specimen Anatomical Collection Method Collection Time Receive d Time (Source) Location / / Volume Laterality Blood specimen 07/09/2017 5:40 PM 017 5:40 (specimen) EST PM EST Yuan Webber MD POINT OF CARE TEST ORDERABLE S Performing Organization Address City/[facility]/ZIP Code Phon e Number [address] POCT Glucose (07/09/2017 4:24 PM EST) athologist Signature POC Glucose 164 65 - 199 [place] mg/dL [facility] Comment: Supplemental ranges: <140 mg/dL before meals <180 mg/dL all other times of the day Specimen Anatomical Collection Method Collection Time Receive d Time (Source) Location / / Volume Laterality Blood specimen 07/09/2017 4:24 PM 017 4:24 (specimen) EST PM EST Yuan Webber MD POINT OF CARE TEST ORDERABLE S Performing Organization Address City/State/[place] [address] POCT Glucose (07/09/2017 3:19 PM EST) athologist Signature POC Glucose 166 65 - 199 [place] mg/dL [facility] Comment: Supplemental ranges: <140 mg/dL before meals <180 mg/dL all other times of the day Specimen Anatomical Collection Method Collection Time Receive d Time (Source) Location / / Volume Laterality Blood specimen 07/09/2017 3:19 PM 017 3:19 (specimen) EST PM EST Yuan Webber MD POINT OF CARE TEST ORDERABLE S Performing Organization Address City/[facility]/ZIP Code Phon e Number [address] POCT Glucose (07/09/2017 2:26 PM EST) athologist Signature POC Glucose 179 65 - 199 [place] mg/dL [facility] Comment: Supplemental ranges: <140 mg/dL before meals <180 mg/dL all other times of the day Specimen Anatomical Collection Method Collection Time Receive d Time (Source) Location / / Volume Laterality Blood specimen 07/09/2017 2:26 PM 017 2:26 (specimen) EST PM EST Yuan Webber MD POINT OF CARE TEST ORDERABLE S Performing Organization Address City/[facility]/[place] [address] (ABNORMAL) POCT Glucose (07/09/2017 1:29 PM EST) athologist Signature POC Glucose 210 (H) 65 - 199 [place] mg/dL [facility] Comment: Supplemental ranges: <140 mg/dL before meals <180 mg/dL all other times of the day Specimen Anatomical Collection Method Collection Time Receive d Time (Source) Location / / Volume Laterality Blood specimen 07/09/2017 1:29 PM 017 1:29 (specimen) EST PM EST Yuan Webber MD POINT OF CARE TEST ORDERABLE S Performing Organization Address City/State/ZIP Code Phon e Number [address] POCT Glucose (07/09/2017 12:20 PM EST) P athologist Signature POC Glucose 172 65 - 199 [facility] Comment: Supplemental ranges: <140 mg/dL before meals <180 mg/dL all other times of the day Specimen Anatomical Collection Method Collection Time Receive d Time (Source) Location / / Volume Laterality Blood specimen 07/09/2017 12:20 7 (specimen) PM EST 12:20 PM EST Yuan Webber MD POINT OF CARE TEST ORDERABLE S Performing Organization Address City/State/ZIP Code Phon e Number [address] POCT Glucose (07/09/2017 11:24 AM EST) athologist Signature POC Glucose 156 65 - 199 [facility] Comment: Supplemental ranges: <140 mg/dL before meals <180 mg/dL all other times of the day Specimen Anatomical Collection Method Collection Time Receive d Time (Source) Location / / Volume Laterality Blood specimen 07/09/2017 11:24 7 (specimen) AM EST 11:24 AM EST Yuan Webber MD POINT OF CARE TEST ORDERABLE S Performing Organization Address City/State/ZIP Code Phon e Number [address] POCT Glucose (07/09/2017 11:11 AM EST) athologist Signature POC Glucose 172 65 - 199 [facility] SU mg/dL [facility] Comment: Supplemental ranges: <140 mg/dL before meals <180 mg/dL all other times of the day Specimen Anatomical Collection Method Collection Time Receive d Time (Source) Location / / Volume Laterality Blood specimen 07/09/2017 11:11 7 (specimen) AM EST 11:11 AM EST Yuan Webber MD POINT OF CARE TEST ORDERABLE S Performing Organization Address City/State/ZIP Code Phon e Number [address] POCT Glucose (07/09/2017 10:08 AM EST) athologist Signature POC Glucose 176 65 - 199 [facility] Comment: Supplemental ranges: <140 mg/dL before meals <180 mg/dL all other times of the day Specimen Anatomical Collection Method Collection Time Receive d Time (Source) Location / / Volume Laterality Blood specimen 07/09/2017 10:08 7 (specimen) AM EST 10:08 AM EST Yuan Webber MD POINT OF CARE TEST ORDERABLE S Performing Organization Address City/State/ZIP Code Phon e Number [address] POCT Glucose (07/09/2017 8:02 AM EST) athologist Signature POC Glucose 178 65 - 199 [facility] Comment: Supplemental ranges: <140 mg/dL before meals <180 mg/dL all other times of the day Specimen Anatomical Collection Method Collection Time Receive d Time (Source) Location / / Volume Laterality Blood specimen 07/09/2017 8:02 AM 017 8:02 (specimen) EST AM EST Yuan Webber MD POINT OF CARE TEST ORDERABLE S Performing Organization Address City/State/ZIP Code Phon e Number [address] (ABNORMAL) BLOOD GAS 2 ARTERIAL (07/09/2017 5:37 AM EST) Analysis Performed At Patho logist Time Signature pH Art 7.36 7.35 - [facility] 7.45 [facility] pCO2 Art 38 35 - 45 [facility] mmHg [facility] pO2 Art 79 (L) 85 - 104 [facility] mmHg [facility] HCO3 Art 20.9 20.0 - [facility] 26.0 [facility] mmol/L [facility] LABORATORY BE Art -4.6 (L) -3.0 - 3.0 [facility] mmol/L [facility] Hgb Blood Gas 10.5 (L) 13.7 - [facility] 16.5 gm/dL [facility] O2HB Art 93.8 (L) 94.0 - [facility] 97.0 % [facility] COHB Art 0.3 % [facility] Comment: Nonsmokers: 0.5-1.5% COHB Smokers: Variable, but usually less than 10% Toxic: 20-30% COHB Lethal: Greater than 60% COHB METHB Art 0.6 <=1.5 % [facility] Na Whole Blood 141 135 - 145 mmol/L [facility] K Whole Blood 4.5 3.5 - 5.0 mmol/L [facility] Comment: Please note: Patients with WBC >100,000 may have falsely elevated Potassium levels. Contact the Clinical Chemistry L aboratory if there are any questions. ICa Whole Blood 1.01 (L) 1.15 - 1.33 mmol/L [facility] FIO2 Art 40 % [facility] PF Ratio Art 198 [facility] LABOR[facility]ORY Specimen Anatomical Collection Method Collection Time Receive d Time (Source) Location / / Volume Laterality Blood specimen 07/09/2017 5:37 AM 017 5:37 (specimen) EST AM EST Yuan Webber MD CHEMISTRY ORDERABLES Performing Organization Address City/State/[place] [address] POCT Glucose (07/09/2017 3:27 AM EST) P athologist Signature POC Glucose 192 65 - 199 [facility] mg/dL [facility] Comment: Supplemental ranges: <140 mg/dL before meals <180 mg/dL all other times of the day Specimen Anatomical Collection Method Collection Time Receive d Time (Source) Location / / Volume Laterality Blood specimen 07/09/2017 3:27 AM 017 3:27 (specimen) EST AM EST Yuan Webber MD POINT OF CARE TEST ORDERABLE S Performing Organization Address City/State/[place] [address] (ABNORMAL) Basic Metabolic Panel (non-fasting) (07/09/2017 2:30 AM EST) athologist Signature Glucose Lvl 179 65 - 199 [facility] mg/dL [facility] Comment: Diabetes: >=200 mg/dL plus symp toms BUN 17 10 - 20 mg/dL [facility] Creatinine 1.34 0.80 - 1.50 [...] Chloride 111 (H) 98 - 107 mmol/L [facility] CO2 21 (L) 22 - 31 mmol/L [facility] Anion Gap 12 5 - 15 mmol/L [facility] Calcium 7.1 (L) 8.5 - 10.5 mg/dL [facility] Comment: result [id number]-[id number] Estimated GFR 53 (L) >=60 [facility] Comment: The reported eGFR should be multiplied b y 1.2 for patients. The MDRD is not an appropriate measure o f renal function for patients with body mass extremes or in patients with acute kidney failure. [email or web address] [email or web address]/DHMCnkf Specimen Anatomical Collection Method Collection Time Receive d Time (Source) Location / / Volume Laterality Blood specimen Venous Draw / 07/09/2017 2:30 AM 2016 2:42 (specimen) Unknown EST AM EST Resulting Agency Comment Spec In Lab Yuan Webber MD CHEMISTRY ORDERABLES Performing Organization Address City/[facility]/[place] [address] (ABNORMAL) Potassium (07/09/2017 2:30 AM EST) P athologist Signature Potassium 5.1 (H) 3.5 - 5.0 [place] mmol/L [facility] Comment: Please note: ??Patients with [...] Webber MD CHEMISTRY ORDERABLES Performing Organization Address City/[facility] [place] [address] (ABNORMAL) Hemogram (07/09/2017 2:30 AM EST) Analysis Performed At Patho logist Time Signature WBC 12.5 (H) 4.0 - 9.5 [place] x10(3)/[facility] LABORATORY RBC 3.38 (L) 4.58 - [place] 5.54 [facility] x10(6)/[facility] LABORATORY Hemoglobin 10.1 (L) 13.7 - [place] 16.5 gm/dL [facility] Hematocrit 30.3 (L) 40.5 - [place] [facility] 48.5 % [facility] MCV 89.6 82.9 - [place] 93.1 fL [facility] MCH 29.9 27.5 - [place] 32.1 pg [facility] MCHC 33.3 32.0 - [place] 35.7 gm/dL [facility] Platelets 127 (L) 145 - 357 [place] [facility] x10(3)/[facility] LABORATORY RDWSD 49.3 (H) 36.0 - [place] 45.0 [facility] LABORATORY RDWCV 15.2 (H) 11.4 - [facility] SU 13.8 % [facility] MPV 9.9 7.6 - 12.9 [facility] LABORATORY nRBC % Auto 0.0 % [facility] nRBC Abs Auto 0.000 0.000 - [place] 0.000 [facility] x10(3)/[facility] LABORATORY Specimen Anatomical Collection Method Collection Time Receive d Time (Source) Location / / Volume Laterality Blood specimen 07/09/2017 2:30 AM 017 2:41 (specimen) EST AM EST Resulting Agency Comment Spec In Lab Yuan Webber MD HEMATOLOGY ORDERABLES Performing Organization Address City/[facility]/ZIP [facility] Phon e Number [address] POCT Glucose (07/09/2017 2:10 AM EST) athologist Signature POC Glucose 169 65 - 199 [facility] mg[facility]dL [facility] Comment: Supplemental ranges: <140 mg/dL before meals <180 mg/dL all other times of the day Specimen Anatomical Collection Method Collection Time Receive d Time (Source) Location / / Volume Laterality Blood specimen 07/09/2017 2:10 AM 017 2:10 (specimen) EST AM EST Yuan Webber MD POINT OF CARE TEST ORDERABLE S Performing Organization Address City/State/ZIP Code Phon e Number [address] POCT Glucose (07/09/2017 1:01 AM EST) P athologist Signature POC Glucose 173 65 - 199 [facility] mg/dL [facility] Comment: Supplemental ranges: <140 mg/dL before meals <180 mg/dL all other times of the day Specimen Anatomical Collection Method Collection Time Receive d Time (Source) Location / / Volume Laterality Blood specimen 07/09/2017 1:01 AM 017 1:01 (specimen) EST AM EST Yuan Webber MD POINT OF CARE TEST ORDERABLE S Performing Organization Address City/[facility]/[place] [address] Blood culture (07/09/2017 12:40 AM EST) [facility] gist Method Time Signature Blood Culture No growth KATALINA DAVIS at 5 days. [facility] Specimen Anatomical Collection Method Collection Time Receive d Time (Source) Location / / Volume Laterality Blood specimen STRUCTURE OF RIGHT 07/09/2017 12:40 3:58 (specimen) UPPER LIMB / AM EST AM EST Unknown Resulting Agency Comment Spec In Lab Yuan Webber MD MICROBIOLOGY - BLOOD ORDERAB LES Performing Organization Address City/[facility]/[place] [address] Blood culture (07/09/2017 12:30 AM EST) [facility] gist Method Time Signature Blood Culture No growth KATALINA DAVIS at 5 days. [facility] Specimen Anatomical Collection Method Collection Time Receive d Time (Source) Location / / Volume Laterality Blood specimen STRUCTURE OF LEFT 07/09/2017 12:30 1211/2016 3:59 (specimen) UPPER LIMB / AM EST AM EST Unknown Resulting Agency Comment Spec In Lab Yuan Webber MD MICROBIOLOGY - BLOOD ORDERAB LES Performing Organization Address City/[facility]/[place] [address] (ABNORMAL) Urinalysis Microscopic Exam (07/09/2017 12:05 AM EST) Analysis Performed At Patho logist Time Signature RBC UA 32 (H) 0 - 3 /HPF [facility] WBC UA 5 (H) 0 - 3 /HPF [facility] Squam Epith UA <1 <=4 /HPF [facility] Hyaline Cast 17 (H) 0 - 2 /LPF [facility] Gran Cast UA 1 (H) <=0 /LPF [facility] Uric Ac Bianca Rare (A) None /HPF [facility] Specimen (Source) Anatomical Collection Method Collection Time Re ceived Time Location / / Volume Laterality Urine specimen 07/09/2017 12: 7 obtained via AM EST 12:39 AM EST indwelling urinary catheter (specimen) Resulting Agency Comment Spec In Lab Yuan Webber MD URINE ORDERABLES Performing Organization Address City/[facility]/ZIP Code Phon e Number [address] (ABNORMAL) Urinalysis with reflex Culture (07/09/2017 12:05 AM EST) [facility] Method Time Signature Glucose UA Negative Negative [facility] mg/dL [facility] Protein UA 30 (A) Negative [facility] mg/dL [facility] Bilirubin UA Negative Negative [facility] mg/dL [facility] Comment: Clinical correlation required for positi ve Urine Bilirubin results as false positive may occur with some drugs and d rug related products. If a false positive is suspected a serum total bili yeager should be considered if clinically indicated. Urobilinogen UA Normal Normal mg/dL [facility] pH UA 5.0 5.0 - 8.0 [facility] Blood UA Moderate (A) Negative mg/dL [facility] Ketones UA Negative Negative mg/dL [facility] Nitrite UA Negative Negative [facility] Leukocytes UA Negative Negative mcL [facility] Appearance UA Hazy (A) Clear [facility] Spec Hurley UA 1.025 1.002 - 1.030 [facility] Color UA Yellow Yellow [facility] Culture Reflexed No [facility] Specimen (Source) Anatomical Collection Method Collection Time Re ceived Time Location / / Volume Laterality Urine specimen 07/09/2017 12:05 7 obtained via AM EST 12:39 AM EST indwelling urinary catheter (specimen) Resulting Agency Comment Spec In Lab Yuan Webber MD URINE ORDERABLES Performing Organization Address City/[facility]/ZIP Code Phon e Number [address] POCT Glucose (07/08/2017 11:01 PM EST) athologist Signature POC Glucose 191 65 - 199 [facility] Comment: Supplemental ranges: <140 mg/dL before meals <180 mg/dL all other times of the day Specimen Anatomical Collection Method Collection Time Receive d Time (Source) Location / / Volume Laterality Blood specimen 07/08/2017 11:01 7 (specimen) PM EST 11:01 PM EST Yuan Webber MD POINT OF CARE TEST ORDERABLE S Performing Organization Address City/State/ZIP Code Phon e Number [address] POCT Glucose (07/08/2017 10:04 PM EST) athologist Signature POC Glucose 198 65 - 199 [facility]dL [facility] Comment: Supplemental ranges: <140 mg/dL before meals <180 mg/dL all other times of the day Specimen Anatomical Collection Method Collection Time Receive d Time (Source) Location / / Volume Laterality Blood specimen 07/08/2017 10:04 7 (specimen) PM EST 10:04 PM EST Yuan Webber MD POINT OF CARE TEST ORDERABLE S Performing Organization Address City/State/[place] [address] Prepare Albumin 5% in 250 mL (07/08/2017 8:49 PM EST) athologist Signature Dispensed? Yes [facility] Specimen Anatomical Collection Method Collection Time Receive d Time (Source) Location / / Volume Laterality Blood specimen No Charge / 07/08/2017 8:49 PM 017 8:51 (specimen) Unknown EST PM EST Resulting Agency Comment Spec In Lab [facility] ORDERABLES Performing Organization Address City/State/[place] [address] POCT Glucose (07/08/2017 8:28 PM EST) athologist Signature POC Glucose 195 65 - 199 [facility]dL [facility] Comment: Supplemental ranges: <140 mg/dL before meals <180 mg/dL all other times of the day Specimen Anatomical Collection Method Collection Time Receive d Time (Source) Location / / Volume Laterality Blood specimen 07/08/2017 8:28 PM 017 8:28 (specimen) EST PM EST Yuan Webber MD POINT OF CARE TEST ORDERABLE S Performing Organization Address City/State/[place] [address] (ABNORMAL) POCT Glucose (07/08/2017 7:13 PM EST) athologist Signature POC Glucose 220 (H) 65 - 199 [facility] mg/dL [facility] Comment: Supplemental ranges: <140 mg/dL before meals <180 mg/dL all other times of the day Specimen Anatomical Collection Method Collection Time Receive d Time (Source) Location / / Volume Laterality Blood specimen 07/08/2017 7:13 PM 017 7:13 (specimen) EST PM EST Yuan Webber MD POINT OF CARE TEST ORDERABLE S Performing Organization Address City/State/[place] [address] POCT Glucose (07/08/2017 5:04 PM EST) athologist Signature POC Glucose 147 65 - 199 [facility] mg/dL [facility] Comment: Supplemental ranges: <140 mg/dL before meals <180 mg/dL all other times of the day Specimen Anatomical Collection Method Collection Time Receive d Time (Source) Location / / Volume Laterality Blood specimen 07/08/2017 5:04 PM 017 5:04 (specimen) EST PM EST Yuan Webber MD POINT OF CARE TEST ORDERABLE S Performing Organization Address City/State/[place] [address] (ABNORMAL) BLOOD GAS 2 ARTERIAL (07/08/2017 4:13 PM EST) Analysis Performed At Patho logist [place] Signature pH Art 7.38 7.35 - [facility] 7.45 [facility] pCO2 Art 36 35 - 45 [facility] mmHg [facility] pO2 Art 91 85 - 104 [facility] LABORATORY HCO3 Art 20.9 20.0 - [facility] 26.0 [facility] mmol/L [facility] BE Art -4.2 (L) -3.0 - 3.0 [facility] mmol/L [facility] Hgb Blood Gas 11.7 (L) 13.7 - [facility] 16.5 gm/dL [facility] O2HB Art 95.1 94.0 - [facility] 97.0 % [facility] COHB Art 0.6 % [facility] Comment: Nonsmokers: 0.5-1.5% COHB Smokers: Variable, but usually less than 10% Toxic: 20-30% COHB Lethal: Greater than 60% COHB METHB Art 0.6 <=1.5 % [facility] Na Whole Blood 139 135 - 145 mmol/L [facility] K Whole Blood 4.2 3.5 - 5.0 mmol/L [facility] Comment: Please note: Patients with WBC >100,000 may have falsely elevated Potassium levels. Contact the Clinical Chemistry L aboratory if there are any questions. ICa Whole Blood 1.05 (L) 1.15 - 1.33 mmol/L [facility] FIO2 Art 40 % [facility] PF Ratio Art 228 [facility] Specimen Anatomical Collection Method Collection Time Receive d Time (Source) Location / / Volume Laterality Blood specimen 07/08/2017 4:13 PM 017 4:13 (specimen) EST PM EST Yuan Webber MD CHEMISTRY ORDERABLES Performing Organization Address City/State/ZIP Code Phon e Number [address] POCT Glucose (07/08/2017 4:01 PM EST) athologist Signature POC Glucose 148 65 - 199 [place] [facility] mg/dL [facility] Comment: Supplemental ranges: <140 mg/dL before meals <180 mg/dL all other times of the day Specimen Anatomical Collection Method Collection Time Receive d Time (Source) Location / / Volume Laterality Blood specimen 07/08/2017 4:01 PM 017 4:01 (specimen) EST PM EST Yuan Webber MD POINT OF CARE TEST ORDERABLE S Performing Organization Address City/State/ZIP Code Phon e Number [address] POCT Glucose (07/08/2017 3:21 PM EST) athologist Signature POC Glucose 118 65 - 199 [place] [facility] mg/dL [facility] Comment: Supplemental ranges: <140 mg/dL before meals <180 mg/dL all other times of the day Specimen Anatomical Collection Method Collection Time Receive d Time (Source) Location / / Volume Laterality Blood specimen 07/08/2017 3:21 PM 017 3:21 (specimen) EST PM EST Yuan Webber MD POINT OF CARE TEST ORDERABLE S Performing Organization Address City/State/ZIP Code Phon e Number [address] POCT Glucose (07/08/2017 2:01 PM EST) athologist Signature POC Glucose 129 65 - 199 [facility] mg/dL [facility] Comment: Supplemental ranges: <140 mg/dL before meals <180 mg/dL all other times of the day Specimen Anatomical Collection Method Collection Time Receive d Time (Source) Location / / Volume Laterality Blood specimen 07/08/2017 2:01 PM 017 2:01 (specimen) EST PM EST Yuan Webber MD POINT OF CARE TEST ORDERABLE S Performing Organization Address City/[facility]/[place] [address] POCT Glucose (07/08/2017 11:53 AM EST) athologist Signature POC Glucose 156 65 - 199 [place] [facility] mg/dL [facility] Comment: Supplemental ranges: <140 mg/dL before meals <180 mg/dL all other times of the day Specimen Anatomical Collection Method Collection Time Receive d Time (Source) Location / / Volume Laterality Blood specimen 07/08/2017 11:53 7 (specimen) AM EST 11:53 AM EST Yuan Webber MD POINT OF CARE TEST ORDERABLE S Performing Organization Address [facility]/ZIP Code Phon e Number [address] POCT Glucose (07/08/2017 11:04 AM EST) athologist Signature POC Glucose 181 65 - 199 [place] [facility] mg/dL [facility] Comment: Supplemental ranges: <140 mg/dL before meals <180 mg/dL all other times of the day Specimen Anatomical Collection Method Collection Time Receive d Time (Source) Location / / Volume Laterality Blood specimen 07/08/2017 11:04 7 (specimen) AM EST 11:04 AM EST Yuan Webber MD POINT OF CARE TEST ORDERABLE S Performing Organization Address City/[facility]/[place] [address] (ABNORMAL) POCT Glucose (07/08/2017 9:24 AM EST) athologist Signature POC Glucose 203 (H) 65 - 199 [place] [facility] mg/dL [facility] Comment: Supplemental ranges: <140 mg/dL before meals <180 mg/dL all other times of the day Specimen Anatomical Collection Method Collection Time Receive d Time (Source) Location / / Volume Laterality Blood specimen 07/08/2017 9:24 AM 017 9:24 (specimen) EST AM EST Yuan Webber MD POINT OF CARE TEST ORDERABLE S Performing Organization Address City/State/[place] [address] APTT (07/08/2017 8:40 AM EST) P athologist Signature PTT 33 25 - 35 sec [facility] Comment: The recommended therapeutic range for fu ll dose, unfractionated heparin at [facility] is 80 ? 114 seconds. The use [...] Webber MD HEMATOLOGY ORDERABLES Performing Organization Address [facility]/[employer] [place] [address] (ABNORMAL) Prothrombin Time (07/08/2017 8:40 AM EST) athologist Signature PT 15.6 (H) 11.8 - 14.0 [facility] LABORATORY [...] Webber MD HEMATOLOGY ORDERABLES Performing Organization Address [facility] [place] [address] (ABNORMAL) POCT Glucose (07/08/2017 7:38 AM EST) athologist Signature POC Glucose 232 (H) 65 - 199 [facility] mg/dL [facility] Comment: Supplemental ranges: <140 mg/dL before meals <180 mg/dL all other times of the day Specimen Anatomical Collection Method Collection Time Receive d Time (Source) Location / / Volume Laterality Blood specimen 07/08/2017 7:38 AM 017 7:38 (specimen) EST AM EST Yuan Webber MD POINT OF CARE TEST ORDERABLE S Performing Organization Address City/State/[place] [address] (ABNORMAL) POCT Glucose (07/08/2017 7:07 AM EST) athologist Signature POC Glucose 234 (H) 65 - 199 [facility] mg/dL [facility] Comment: Supplemental ranges: <140 mg/dL before meals <180 mg/dL all other times of the day Specimen Anatomical Collection Method Collection Time Receive d Time (Source) Location / / Volume Laterality Blood specimen 07/08/2017 7:07 AM 017 7:07 (specimen) EST AM EST Yuan Webber MD POINT OF CARE TEST ORDERABLE S Performing Organization Address City/State/[place] [address] (ABNORMAL) POCT Glucose (07/08/2017 6:04 AM EST) athologist Signature POC Glucose 225 (H) 65 - 199 [facility] mg/dL [facility] Comment: Supplemental ranges: <140 mg/dL before meals <180 mg/dL all other times of the day Specimen Anatomical Collection Method Collection Time Receive d Time (Source) Location / / Volume Laterality Blood specimen 07/08/2017 6:04 AM 017 6:04 (specimen) EST AM EST Yuan Webber MD POINT OF CARE TEST ORDERABLE S Performing Organization Address City/State/[place] [address] (ABNORMAL) POCT Glucose (07/08/2017 5:31 AM EST) athologist Signature POC Glucose 216 (H) 65 - 199 [facility] mg/dL [facility] Comment: Supplemental ranges: <140 mg/dL before meals <180 mg/dL all other times of the day Specimen Anatomical Collection Method Collection Time Receive d Time (Source) Location / / Volume Laterality Blood specimen 07/08/2017 5:31 AM 017 5:31 (specimen) EST AM EST Yuan Webber MD POINT OF CARE TEST ORDERABLE S Performing Organization Address City/State/[place] [address] (ABNORMAL) POCT Glucose (07/08/2017 4:52 AM EST) athologist Signature POC Glucose 257 (H) 65 - 199 [facility] mg/dL [facility] Comment: Supplemental ranges: <140 mg/dL before meals <180 mg/dL all other times of the day Specimen Anatomical Collection Method Collection Time Receive d Time (Source) Location / / Volume Laterality Blood specimen 07/08/2017 4:52 AM 017 4:52 (specimen) EST AM EST Daphne Shahid MD POINT OF CARE TEST ORDERABLE S Performing Organization Address City/[facility]/[place] [address] (ABNORMAL) BLOOD GAS 2 ARTERIAL (07/08/2017 4:04 AM EST) Analysis Performed At Patho logist Time Signature pH Art 7.30 (L) 7.35 - [facility] 7.45 [facility] pCO2 Art 41 35 - 45 [facility] mmHg [facility] pO2 Art 83 (L) 85 - 104 [facility] mmHg [facility] HCO3 Art 19.6 (L) 20.0 - [facility] 26.0 [facility] mmol/L [facility] BE Art -6.8 (L) -3.0 - 3.0 [facility] mmol/L [facility] Hgb Blood Gas 12.2 (L) 13.7 - [facility] 16.5 gm/dL [facility] O2HB Art 93.5 (L) 94.0 - [facility] 97.0 % [facility] COHB Art 0.4 % [facility] Comment: Nonsmokers: 0.5-1.5% COHB Smokers: Variable, but usually less than 10% Toxic: 20-30% COHB Lethal: Greater than 60% COHB METHB Art 0.8 <=1.5 % [facility] Na Whole Blood 138 135 - 145 mmol/L [facility] K Whole Blood 4.4 3.5 - 5.0 mmol/L [facility] Comment: Please note: Patients with WBC >100,000 may have falsely elevated Potassium levels. Contact the Clinical Chemistry L aboratory if there are any questions. ICa Whole Blood 1.05 (L) 1.15 - 1.33 mmol/L [facility] [...] WB 4.4 (Critical) 0.5 - 2.2 mmol/L [facility] Comment: Noted by electrical and instrument technician. FIO2 Art 40 % [facility] PF Ratio Art 208 [facility] Specimen Anatomical Collection Method Collection Time Receive d Time (Source) Location / / Volume Laterality Blood specimen 07/08/2017 4:04 AM 017 4:04 (specimen) EST AM EST Daphne Shahid MD CHEMISTRY ORDERABLES Performing Organization Address City/State/[place] [address] Scan, Peripheral Blood (07/08/2017 4:00 AM EST) P athologist Signature Plat Estimate Normal [facility] RBC Morphology Normal [facility] Specimen Anatomical Collection Method Collection Time Receive d Time (Source) Location / / Volume Laterality Blood specimen 07/08/2017 4:00 AM 017 4:09 (specimen) EST AM EST Resulting Agency Comment Spec In Lab Yuan Webber MD HEMATOLOGY ORDERABLES Performing Organization Address City/State/[place] [address] (ABNORMAL) Differential, Automated (07/08/2017 4:00 AM EST) [facility] Method Time Signature Neutrophils % 85.4 % [facility] Neutr Abs (ANC) 16.07 (H) 1.70 - [facility] 6.10 [facility] x10(3)/[facility] L LABORATORY Lymphocytes % 3.5 % [facility] Lymphocytes Abs 0.6 (L) 0.9 - 3.2 [facility] x10(3)/[facility] LABORATORY Monocytes % 10.4 % [facility] Monocyte Abs 2.0 (H) 0.3 - 0.9 [facility] x10(3)/[facility] LABORATORY Eosinophils % 0.0 % [facility] Eosinophils Abs 0.0 0.0 - 0.4 [facility] x10(3)/[facility] LABORATORY Basophils % 0.1 % [facility] Basophils Abs 0.0 0.0 - 0.1 [facility] x10(3)/[facility] LABORATORY Immature Gran % 0.60 % [facility] [...] Gran Abs 0.12 (H) 0.00 - 0.04 x10(3)/[facility] LABORATORY Specimen Anatomical Collection Method Collection Time Receive d Time (Source) Location / / Volume Laterality Blood specimen 07/08/2017 4:00 AM 017 4:09 (specimen) EST AM EST Resulting Agency Comment Spec In Lab Yuan Webber MD HEMATOLOGY ORDERABLES Performing Organization Address City/State/[place] [address] (ABNORMAL) Hemogram (07/08/2017 4:00 AM EST) Analysis Performed At Patho logist Time Signature WBC 18.8 (H) 4.0 - 9.5 [facility](3[facility] LABORATORY RBC 4.00 (L) 4.58 - [place] 5.54 [facility] x10(6)/[facility] LABORATORY Hemoglobin 11.9 (L) 13.7 - [facility] 16.5 gm/dL [facility] Hematocrit 35.9 (L) 40.5 - [facility] 48.5 % [facility] MCV 89.8 82.9 - [facility] 93.1 [facility] LABORATORY MCH 29.8 27.5 - [place] [facility] 32.1 pg [facility] MCHC 33.1 32.0 - [place] [facility] 35.7 gm/dL [facility] Platelets 232 145 - 357 [facility] x10(3)/[facility] LABORATORY RDWSD 47.6 (H) 36.0 - [facility] SU 45.0 [facility] LABORATORY RDWCV 14.5 (H) 11.4 - [facility] SU 13.8 % [facility] MPV 9.5 7.6 - 12.9 [place] [facility] LABORATORY nRBC % Auto 0.0 % [facility] nRBC Abs Auto 0.000 0.000 - [place] [facility] 0.000 [facility] x10(3)/[facility] LABORATORY Specimen Anatomical Collection Method Collection Time Receive d Time (Source) Location / / Volume Laterality Blood specimen 07/08/2017 4:00 AM 017 4:09 (specimen) EST AM EST Resulting Agency Comment Spec In Lab Yuan Webber MD HEMATOLOGY ORDERABLES Performing Organization Address City/State/[place] [address] (ABNORMAL) Electrolytes panel (07/08/2017 4:00 AM EST) P athologist Signature Sodium 139 135 - 145 [facility] mmol/L [facility] Potassium 4.7 3.5 - 5.0 [facility] mmol/L [facility] Comment: result [id number] Please note: [...] Anion Gap 14 5 - 15 mmol/L [facility] Specimen Anatomical Collection Method Collection Time Receive d Time (Source) Location / / Volume Laterality Blood specimen 07/08/2017 4:00 AM 017 4:10 (specimen) EST AM EST Resulting Agency Comment Spec In Lab Yuan Webber MD CHEMISTRY ORDERABLES Performing Organization Address City/State/[place] [address] (ABNORMAL) Cardiac Enzymes (LEB/CGP) (07/08/2017 4:00 AM EST) athologist [facility] Troponin-T 1.88 (H) 0.00 - [facility] 0.00 ng/mL [facility] Comment: The 99th percentile for Troponin T is le ss than 0.01 ng/mL, any detectable cTnT concentration using this assay should be considered elevated. According to the third universal definit ion of myocardial infarction the following criteria with a clinical prese ntation consistent with acute myocardial ischemia meets the diagnosis for a myocardial infarction (WI). Detection of a rise and/or fall of [...] additional sample may be indicated. Reference: Third [place] Definition of Myocardial Infarction. Journal of the [place] [employer] 2012;60:1581-98 CK, Total 413 (H) 0 - 200 unit/L [facility] Comment: result rechecked-JLK Specimen Anatomical Collection Method Collection Time Receive d Time (Source) Location / / Volume Laterality Blood specimen 07/08/2017 4:00 AM 017 4:09 (specimen) EST AM EST Resulting Agency Comment Spec In Lab Yuan Webber MD CHEMISTRY ORDERABLES Performing Organization Address City/State/[place] [address] (ABNORMAL) Glucose, fasting (07/08/2017 4:00 AM EST) athologist Signature Glucose 287 (H) 65 - 99 [facility] Fasting mg/dL [facility] Comment: ?Fasting* Glucose Interpretive C [...] of Diabetes Mellitus, Position Statement from the [place] [employer]. ??Diabete s Care, Volume 33, Supplement 1, Jul 2009 Specimen Anatomical Collection Method Collection Time Receive d Time (Source) Location / / Volume Laterality Blood specimen 07/08/2017 4:00 AM 017 4:09 (specimen) EST AM EST Resulting Agency Comment Spec In Lab Yuan Webber MD CHEMISTRY ORDERABLES Performing Organization Address City/[facility]/[place] [address] (ABNORMAL) Creatinine (07/08/2017 4:00 AM EST) Analysis Performed At Patho logist Time Signature Creatinine 1.55 (H) 0.80 - [place] [facility] 1.50 mg/dL [facility] Estimated GFR 44 (L) >=60 [facility] Comment: The reported eGFR should be multiplied b y 1.2 for patients. The MDRD is not an appropriate measure o f renal function for patients with body mass extremes or in patients with acute kidney failure. http://Fanwards/DHnkdep http://Fanwards/DHMCnkf Specimen Anatomical Collection Method Collection Time Receive d Time (Source) Location / / Volume Laterality Blood specimen 07/08/2017 4:00 AM 017 4:09 (specimen) EST AM EST Resulting Agency Comment Spec In Lab Yuan Webber MD CHEMISTRY ORDERABLES Performing Organization Address City/[facility]/[place] [address] BUN (07/08/2017 4:00 AM EST) P athologist Signature BUN 16 10 - 20 [facility] Specimen Anatomical Collection Method Collection Time Receive d Time (Source) Location / / Volume Laterality Blood specimen 07/08/2017 4:00 AM 017 4:09 (specimen) EST AM EST Resulting Agency Comment Spec In Lab Yuan Webber MD CHEMISTRY ORDERABLES Performing Organization Address City/[facility]/[place] [address] (ABNORMAL) POCT Glucose (07/08/2017 3:00 AM EST) P athologist Signature POC Glucose 273 (H) 65 - 199 [facility] mg/dL [facility] Comment: Supplemental ranges: <140 mg/dL before meals <180 mg/dL all other times of the day Specimen Anatomical Collection Method Collection Time Receive d Time (Source) Location / / Volume Laterality Blood specimen 07/08/2017 3:00 AM 017 3:00 (specimen) EST AM EST Daphne Shahid MD POINT OF CARE TEST ORDERABLE S Performing Organization Address City/[facility]/[place] [address] (ABNORMAL) POCT Glucose (07/08/2017 1:57 AM EST) athologist Signature POC Glucose 288 (H) 65 - 199 [facility] mg/dL [facility] Comment: Supplemental ranges: <140 mg/dL before meals <180 mg/dL all other times of the day Specimen Anatomical Collection Method Collection Time Receive d Time (Source) Location / / Volume Laterality Blood specimen 07/08/2017 1:57 AM 017 1:57 (specimen) EST AM EST Daphne Shahid MD POINT OF CARE TEST ORDERABLE S Performing Organization Address City/[facility]/[place] [address] (ABNORMAL) POCT Glucose (07/08/2017 1:01 AM EST) athologist Signature POC Glucose 315 (H) 65 - 199 [facility] mg/dL [facility] Comment: Supplemental ranges: <140 mg/dL before meals <180 mg/dL all other times of the day Specimen Anatomical Collection Method Collection Time Receive d Time (Source) Location / / Volume Laterality Blood specimen 07/08/2017 1:01 AM 017 1:01 (specimen) EST AM EST Daphne Shahid MD POINT OF CARE TEST ORDERABLE S Performing Organization Address City/State/[place] [address] (ABNORMAL) BLOOD GAS 2 ARTERIAL (07/08/2017 12:09 AM EST) P athologist Signature pH Art 7.26 7.35 - [facility] (Critical) 7.45 [facility] Comment: Noted by electrical and instrument technician. pCO2 Art 41 35 - 45 mmHg [facility] pO2 Art 96 85 - 104 mmHg [facility] HCO3 Art 17.7 (L) 20.0 - 26.0 mmol/L [facility] BE Art -9.4 (L) -3.0 - 3.0 mmol/L [facility] Hgb Blood Gas 12.4 (L) 13.7 - 16.5 gm/dL [facility] O2HB Art 94.7 94.0 - 97.0 % [facility] COHB Art 0.2 % [facility] Comment: Nonsmokers: 0.5-1.5% COHB Smokers: Variable, but usually less than 10% Toxic: 20-30% COHB Lethal: Greater than 60% COHB METHB Art 0.6 <=1.5 % [facility] Na Whole Blood 141 135 - 145 mmol/L [facility] K Whole Blood 3.5 3.5 - 5.0 mmol/L [facility] Comment: Please note: Patients with WBC >100,000 may have falsely elevated Potassium levels. Contact the Clinical Chemistry L aboratory if there are any questions. ICa Whole Blood 1.03 (L) 1.15 - 1.33 mmol/L [facility] WB 7.6 (Critical) 0.5 - 2.2 mmol/L [facility] Comment: Noted by electrical and instrument technician. FIO2 Art 40 % [facility] PF Ratio Art 240 [facility] Specimen Anatomical Collection Method Collection Time Receive d Time (Source) Location / / Volume Laterality Blood specimen Arterial Draw / 07/08/2017 12:09 2016 5:31 (specimen) Unknown AM EST AM EST Resulting Agency Comment Spec In Lab Samy Maldonado MD CHEMISTRY ORDERABLES Performing Organization Address City/State/[place] [address] (ABNORMAL) POCT Glucose (07/07/2017 10:56 PM EST) athologist Signature POC Glucose 292 (H) 65 - 199 [facility] mg/dL [facility] Comment: Supplemental ranges: <140 mg/dL before meals <180 mg/dL all other times of the day Specimen Anatomical Collection Method Collection Time Receive d Time (Source) Location / / Volume Laterality Blood specimen 07/07/2017 10:56 7 (specimen) PM EST 10:56 PM EST Daphne Shahid MD POINT OF CARE TEST ORDERABLE S Performing Organization Address City/[facility]/[place] [address] (ABNORMAL) BLOOD GAS 2 ARTERIAL (07/07/2017 10:04 PM EST) athologist Signature pH Art 7.22 7.35 - [facility] (Critical) 7.45 [facility] Comment: Noted by electrical and instrument technician. pCO2 Art 42 35 - 45 mmHg [facility] pO2 Art 94 85 - 104 mmHg [facility] HCO3 Art 16.9 (L) 20.0 - 26.0 mmol/L [facility] BE Art -10.7 (L) -3.0 - 3.0 mmol/L [facility] Hgb Blood Gas 13.0 (L) 13.7 - 16.5 gm/dL [facility] O2HB Art 93.8 (L) 94.0 - 97.0 % [facility] COHB Art 0.7 % [facility] Comment: Nonsmokers: 0.5-1.5% COHB Smokers: Variable, but usually less than 10% Toxic: 20-30% COHB Lethal: Greater than 60% COHB METHB Art 0.7 <=1.5 % [facility] Na Whole Blood 140 135 - 145 mmol/L [facility] K Whole Blood 3.3 (L) 3.5 - 5.0 mmol/L [facility] Comment: Please note: Patients with WBC >100,000 may have falsely elevated Potassium levels. Contact the Clinical Chemistry L aboratory if there are any questions. ICa Whole Blood 1.07 (L) 1.15 - 1.33 mmol/L [facility] WB 8.2 (Critical) 0.5 - 2.2 mmol/L [facility] Comment: Noted by electrical and instrument technician. FIO2 Art 40 % [facility] PF Ratio Art 235 [facility] Specimen Anatomical Collection Method Collection Time Receive d Time (Source) Location / / Volume Laterality Blood specimen 07/07/2017 10:04 7 (specimen) PM EST 10:04 PM EST Daphne Shahid MD CHEMISTRY ORDERABLES Performing Organization Address City/[facility]/ZIP Code Phon e Number [address] (ABNORMAL) Hemoglobin (07/07/2017 10:00 PM EST) P athologist Signature Hemoglobin 12.8 (L) 13.7 - [facility] 16.5 gm/dL [facility] Specimen Anatomical Collection Method Collection Time Receive d Time (Source) Location / / Volume Laterality Blood specimen 07/07/2017 10:00 7 (specimen) PM EST 10:13 PM EST Resulting Agency Comment Spec In Lab Yuan Webber MD HEMATOLOGY ORDERABLES Performing Organization Address City/[facility]/ZIP Code Phon e Number [address] (ABNORMAL) Potassium (07/07/2017 10:00 PM EST) P athologist Signature Potassium 3.4 (L) 3.5 - 5.0 [facility] mmol/L [facility] Comment: Please note: ??Patients with [...] Webber MD CHEMISTRY ORDERABLES Performing Organization Address City/[facility]/ZIP Code Phon e Number [address] (ABNORMAL) POCT Glucose (07/07/2017 8:49 PM EST) athologist [facility] POC Glucose 241 (H) 65 - 199 [facility] mg/dL [facility] Comment: Supplemental ranges: <140 mg/dL before meals <180 mg/dL all other times of the day Specimen Anatomical Collection Method Collection Time Receive d Time (Source) Location / / Volume Laterality Blood specimen 07/07/2017 8:49 PM 017 8:49 (specimen) EST PM EST Daphne Shahid MD POINT OF CARE TEST ORDERABLE S Performing Organization Address City/[facility]/[place] [address] Prepare Albumin 5% in 250 mL (07/07/2017 8:03 PM EST) athologist [facility] Dispensed? Yes [facility] Specimen Anatomical Collection Method Collection Time Receive d Time (Source) Location / / Volume Laterality Blood specimen No Charge / 07/07/2017 8:03 PM 017 8:04 (specimen) Unknown EST PM EST Resulting Agency Comment Spec In Lab Michael BROWN BLOOD BANK ORDERABLES Performing Organization Address City/[facility]/[place] [address] EKG 12 Lead (07/07/2017 7:17 PM EST) Component Value Ref Range Test Analysis Performed Pathologis t Method Time At Signature Ventricular rate 75 BPM MUSE SYSTEM Atrial Rate 75 BPM MUSE SYSTEM P-R Interval 168 ms MUSE SYSTEM QRS Duration 104 ms MUSE SYSTEM Q-T Interval 462 ms MUSE SYSTEM QTC Calculated 515 ms MUSE SYSTEM (Bezet) Calculated P [place] 52 degrees MUSE SYSTEM Calculated R [place] -40 degrees MUSE SYSTEM Calculated T [place] 39 degrees MUSE SYSTEM INTERPRETATION Normal sinus [...] athologist Signature pH Art 7.21 7.35 - [facility] (Critical) 7.45 [facility] Comment: Noted by electrical and instrument technician. pCO2 Art 50 (H) 35 - 45 mmHg [facility] pO2 Art 238 (H) 85 - 104 mmHg [facility] HCO3 Art 19.8 (L) 20.0 - 26.0 mmol/L [facility] BE Art -8.1 (L) -3.0 - 3.0 mmol/L [facility] Hgb Blood Gas 12.8 (L) 13.7 - 16.5 gm/dL [facility] O2HB Art 97.5 (H) 94.0 - 97.0 % [facility] COHB Art 0.5 % [facility] Comment: Nonsmokers: 0.5-1.5% COHB Smokers: Variable, but usually less than 10% Toxic: 20-30% COHB Lethal: Greater than 60% COHB METHB Art 0.7 <=1.5 % [facility] Na Whole Blood 140 135 - 145 mmol/L [facility] K Whole Blood 3.0 (Critical) 3.5 - 5.0 mmol/L [facility] Comment: Noted by electrical and instrument technician. Please note: Patients with WBC >100,000 may have falsely elevated Potassium levels. Contact the Clinical Chemistry L aboratory if there are any questions. ICa Whole Blood 1.07 (L) 1.15 - 1.33 mmol/L [facility] WB 4.9 (Critical) 0.5 - 2.2 mmol/L [facility] Comment: Noted by electrical and instrument technician. FIO2 Art 100 % [facility] PF Ratio Art 238 [facility] Specimen Anatomical Collection Method Collection Time Receive d Time (Source) Location / / Volume Laterality Blood specimen 07/07/2017 6:57 PM 017 6:57 (specimen) EST PM EST Daphne Shahid MD CHEMISTRY ORDERABLES Performing Organization Address City/State/ZIP Code Phon e Number [place] [id number] (ABNORMAL) BLOOD GAS 2 ARTERIAL (07/07/2017 5:31 PM EST) P athologist Signature pH Art 7.29 7.35 - [facility] (Critical) 7.45 [facility] Comment: Noted by electrical and instrument technician. pCO2 Art 48 (H) 35 - 45 mmHg [facility] pO2 Art 137 (H) 85 - 104 mmHg [facility] HCO3 Art 22.4 20.0 - 26.0 mmol/L [facility] BE Art -4.3 (L) -3.0 - 3.0 mmol/L [facility] Hgb Blood Gas 10.0 (L) 13.7 - 16.5 gm/dL [facility] O2HB Art 97.3 (H) 94.0 - 97.0 % [facility] COHB Art 0.3 % [facility] Comment: Nonsmokers: 0.5-1.5% COHB Smokers: Variable, but usually less than 10% Toxic: 20-30% COHB Lethal: Greater than 60% COHB METHB Art 0.3 <=1.5 % [facility] Na Whole Blood 132 (L) 135 - 145 mmol/L [facility] K Whole Blood 4.0 3.5 - 5.0 mmol/L [facility] Comment: Please note: Patients with WBC >100,000 may have falsely elevated Potassium levels. Contact the Clinical Chemistry L aboratory if there are any questions. ICa Whole Blood 1.14 (L) 1.15 - 1.33 mmol/L [facility] [...] Organization Address City/State/[place] [address] Fibrinogen (07/07/2017 5:30 PM EST) P athologist Signature Fibrinogen 224 180 - 510 [facility] mg/dL [facility] Comment: Called by: JEET, Read [...] Perez MD HEMATOLOGY ORDERABLES Performing Organization Address City/[facility]/ZIP Code Phon e Number [address] APTT (07/07/2017 5:30 PM EST) P athologist Signature PTT 30 25 - 35 sec [facility] Comment: The recommended therapeutic range for fu ll dose, unfractionated heparin at [facility] is 80 ? 114 seconds. The use [...] Perez MD HEMATOLOGY ORDERABLES Performing Organization Address City/[facility] [place] [address] (ABNORMAL) Prothrombin Time (07/07/2017 5:30 PM EST) P athologist Signature PT 19.0 (H) 11.8 - 14.0 [facility] LABORATORY [...] Organization Address City/State/[place] [address] (ABNORMAL) Hemogram (07/07/2017 5:30 PM EST) athologist Signature WBC 19.6 (H) 4.0 - 9.5 [facility] x10(3)/[facility] LABORATORY RBC 3.08 (L) 4.58 - [facility] 5.54 [facility] x10(6)/[facility] LABORATORY Hemoglobin 9.2 (L) 13.7 - [facility] 16.5 gm/dL [facility] Hematocrit 28.0 (L) 40.5 - [facility] 48.5 % [facility] Comment: This result has been called to MONICA MORAN by DONALD GROSSMAN on 07 07 2017 at 1759, and has been read back. MCV 90.9 82.9 - 93.1 [facility] LABORATORY MCH 29.9 27.5 - 32.1 pg [facility] MCHC 32.9 32.0 - 35.7 gm/dL [facility] Platelets 155 145 - 357 x10(3)/[facility] LABORATORY RDWSD 46.5 (H) 36.0 - 45.0 [facility] LABORATORY RDWCV 14.1 (H) 11.4 - 13.8 % [facility] MPV 9.5 7.6 - 12.9 [facility] LABORATORY nRBC % Auto 0.0 % [facility] LABORATORY nRBC Abs Auto 0.000 0.000 - 0.000 x10(3)/[facility] LABORATORY Specimen Anatomical Collection Method Collection Time Receive d Time (Source) Location / / Volume Laterality Blood specimen 07/07/2017 5:30 PM 017 5:34 (specimen) EST PM EST Resulting Agency Comment Spec In Lab Yifan Perez MD HEMATOLOGY ORDERABLES Performing Organization Address City/State/ZIP Code Phon e Number [address] Prepare Platelets, Apheresis (07/07/2017 5:00 PM EST) P athologist Signature Dispensed? Yes [facility] Specimen Anatomical Collection Method Collection Time Receive d Time (Source) Location / / Volume Laterality Blood specimen 07/07/2017 5:00 PM 017 4:58 (specimen) EST PM EST Daphne Shahid MD BLOOD BANK ORDERABLES Performing Organization Address City/[facility]/ZIP Code Phon e Number [address] Platelet count (07/07/2017 4:55 PM EST) athologist Signature Platelets 177 145 - 357 [facility] x10(3)/[facility] LABORATORY Plat Immature 1.5 0.0 - 7.4 [facility] % % [facility] Comment: Limitation of the Immature Platelet Frac tion (IPF)-May be less reliable when the platelet count is less than 48r594/u L due to statistical imprecision. The IPF [...] in a decreased state of production. References: [employer] The Clinical Value of the Immature Platelet Fraction (IPF) in Cell Recovery Document Number 10-1143 12/2010 [employer] The Role of the Imm ature [...] Organization Address City/State/ZIP Code Phon e Number [place] [id number] (ABNORMAL) Hemoglobin and Hematocrit, blood (07/07/2017 4:55 PM EST) P athologist Signature Hemoglobin 9.1 (L) 13.7 - 16.5 [facility] gm/dL [facility] Comment: This result has been called to MALKA MORAN by DONALD GROSSMAN on 07 07 2017 at 1734, and has been read back. Hematocrit 26.6 (L) 40.5 - 48.5 % [facility] Comment: This result has [...] Organization Address City/State/[place] [address] (ABNORMAL) BLOOD GAS 2 ARTERIAL (07/07/2017 4:38 PM EST) Analysis Performed At Patho logist Time Signature pH Art 7.37 7.35 - [facility] 7.45 [facility] pCO2 Art 44 35 - 45 [facility] mmHg [facility] pO2 Art 322 (H) 85 - 104 [facility] mmHg [facility] HCO3 Art 24.9 20.0 - [facility] 26.0 [facility] mmol/L [facility] BE Art -0.4 -3.0 - 3.0 [facility] mmol/L [facility] Hgb Blood Gas 10.1 (L) 13.7 - [facility] 16.5 gm/dL [facility] O2HB Art 98.7 (H) 94.0 - [facility] 97.0 % [facility] COHB Art 0.1 % [facility] Comment: Nonsmokers: 0.5-1.5% COHB Smokers: Variable, but usually less than 10% Toxic: 20-30% COHB Lethal: Greater than 60% COHB METHB Art 0.3 <=1.5 % [facility] Na Whole Blood 130 (L) 135 - 145 mmol/L [facility] K Whole Blood 5.7 (H) 3.5 - 5.0 mmol/L [facility] Comment: Please note: Patients with WBC >100,000 may have falsely elevated Potassium levels. Contact the Clinical Chemistry L aboratory if there are any questions. ICa Whole Blood 0.89 (Critical) 1.15 - 1.33 mmol/L [facility] Comment: Noted by electrical [...] Organization Address City/State/[place] [address] (ABNORMAL) BLOOD GAS 2 VENOUS (07/07/2017 4:06 PM EST) Analysis Performed At Patho logist Time Signature pH Cody 7.31 (L) 7.32 - [facility] 7.42 [facility] pCO2 Cody 47 41 - 51 [facility] LABORATORY pO2 Cody 53 (H) 25 - 40 [facility] LABORATORY HCO3 Cody 22.7 mmol/L [facility] BE Cody -3.7 mmol/L [facility] Hgb Blood Gas 10.2 (L) 13.7 - [facility] 16.5 gm/dL [facility] O2HB Cody 81.0 % [facility] COHB Cody 1.0 % [facility] Comment: Nonsmokers: 0.5-1.5% COHB Smokers: Variable, but usually less than 10% Toxic: 20-30% COHB Lethal: Greater than 60% COHB METHB Cody 0.3 <=1.5 % [facility] Na Whole Blood 132 (L) 135 - 145 mmol/L [facility] K Whole Blood 5.3 (H) 3.5 - 5.0 mmol/L [facility] Comment: Please note: Patients with WBC >100,000 may have falsely elevated Potassium levels. Contact the Clinical Chemistry L aboratory if there are any questions. ICa Whole Blood 0.90 (Critical) 1.15 - 1.33 mmol/L [facility] Comment: Noted by electrical [...] [facility] BGas Source Venous [facility] Specimen Anatomical Collection Method Collection Time Receive d Time (Source) Location / / Volume Laterality Blood specimen 07/07/2017 4:06 PM 017 4:06 (specimen) EST PM EST Daphne Shahid MD CHEMISTRY ORDERABLES Performing Organization Address City/State/[place] [address] (ABNORMAL) BLOOD GAS 2 ARTERIAL (07/07/2017 4:05 PM EST) Analysis Performed At Patho logist Time Signature pH Art 7.36 7.35 - [facility] 7.45 [facility] pCO2 Art 40 35 - 45 [facility] LABORATORY pO2 Art 282 (H) 85 - 104 [facility] LABORATORY HCO3 Art 22.1 20.0 - [facility] 26.0 [facility] mmol/[facility] LABORATORY BE Art -3.4 (L) -3.0 - 3.0 [facility] mmol/L [facility] Hgb Blood Gas 10.2 (L) 13.7 - [facility] 16.5 gm/dL [facility] O2HB Art 98.4 (H) 94.0 - [facility] 97.0 % [facility] COHB Art 0.3 % [facility] Comment: Nonsmokers: 0.5-1.5% COHB Smokers: Variable, but usually less than 10% Toxic: 20-30% COHB Lethal: Greater than 60% COHB METHB Art 0.3 <=1.5 % [facility] Na Whole Blood 131 (L) 135 - 145 mmol/L [facility] K Whole Blood 5.4 (H) 3.5 - 5.0 mmol/L [facility] Comment: Please note: Patients with WBC >100,000 may have falsely elevated Potassium levels. Contact the Clinical Chemistry L aboratory if there are any questions. ICa Whole Blood 0.86 (Critical) 1.15 - 1.33 mmol/L [facility] Comment: Noted by electrical [...] Organization Address City/State/[place] [address] (ABNORMAL) BLOOD GAS 2 ARTERIAL (07/07/2017 2:29 PM EST) Analysis Performed At Patho logist Time Signature pH Art 7.43 7.35 - [facility] 7.45 [facility] pCO2 Art 36 35 - 45 [facility] mmHg [facility] pO2 Art 221 (H) 85 - 104 [facility] mmHg [facility] HCO3 Art 23.2 20.0 - [facility] 26.0 [facility] mmol/L [facility] BE Art -1.2 -3.0 - 3.0 [facility] mmol/L [facility] Hgb Blood Gas 13.9 13.7 - [facility] 16.5 gm/dL [facility] O2HB Art 97.8 (H) 94.0 - [facility] 97.0 % [facility] COHB Art 1.1 % [facility] Comment: Nonsmokers: 0.5-1.5% COHB Smokers: Variable, but usually less than 10% Toxic: 20-30% COHB Lethal: Greater than 60% COHB METHB Art 0.3 <=1.5 % [facility] Na Whole Blood 139 135 - 145 mmol/L [facility] K Whole Blood 4.0 3.5 - 5.0 mmol/L [facility] Comment: Please note: Patients with WBC >100,000 may have falsely elevated Potassium levels. Contact the Clinical Chemistry L aboratory if there are any questions. ICa Whole Blood 1.11 (L) 1.15 - 1.33 mmol/L [facility] Comment: Note: ??Total bilirubin higher than 20 m g/dL may lead to falsely low ionized calcium. CL Whole Blood 104 98 - 107 mmol/L [facility] Gluc Whole Bld 184 [...] Shahid MD CHEMISTRY ORDERABLES Performing Organization Address City/[facility]/[place] [address] Prepare Coag Factors (Non-Hemophilia) (07/07/2017 1:25 PM EST) P athologist Signature Dispensed? Yes [facility] Specimen Anatomical Collection Method Collection Time Receive d Time (Source) Location / / Volume Laterality Blood specimen 07/07/2017 1:25 PM 017 1:21 (specimen) EST PM EST Daphne Shahid MD BLOOD BANK ORDERABLES Performing Organization Address City/[facility]/[place] [address] Prepare RBC (07/07/2017 1:10 PM EST) P athologist Signature Dispensed? Yes [facility] Specimen Anatomical Collection Method Collection Time Receive d Time (Source) Location / / Volume Laterality Blood specimen 07/07/2017 1:10 PM 017 1:05 (specimen) EST PM EST Daphne Shahid MD BLOOD BANK ORDERABLES Performing Organization Address City/[facility]/[place] [address] POCT Glucose (07/07/2017 11:56 AM EST) P athologist Signature POC Glucose 188 65 - 199 [facility] mg/dL [facility] Comment: Supplemental ranges: <140 mg/dL before meals <180 mg/dL all other times of the day Specimen Anatomical Collection Method Collection Time Receive d Time (Source) Location / / Volume Laterality Blood specimen 07/07/2017 11:56 7 (specimen) AM EST 11:56 AM EST Daphne Shahid MD POINT OF CARE TEST ORDERABLE S Performing Organization Address City/[facility]/[place] [address] POCT Glucose (07/07/2017 11:05 AM EST) athologist Signature POC Glucose 168 65 - 199 [place] [facility] mg/dL [facility] Comment: Supplemental ranges: <140 mg/dL before meals <180 mg/dL all other times of the day Specimen Anatomical Collection Method Collection Time Receive d Time (Source) Location / / Volume Laterality Blood specimen 07/07/2017 11:05 7 (specimen) AM EST 11:05 AM EST Daphne Shahid MD POINT OF CARE TEST ORDERABLE S Performing Organization Address City/State/ZIP Code Phon e Number [address] POCT Glucose (07/07/2017 10:02 AM EST) athologist Signature POC Glucose 191 65 - 199 [place] [facility] mg/dL [facility] Comment: Supplemental ranges: <140 mg/dL before meals <180 mg/dL all other times of the day Specimen Anatomical Collection Method Collection Time Receive d Time (Source) Location / / Volume Laterality Blood specimen 07/07/2017 10:02 7 (specimen) AM EST 10:02 AM EST Daphne Shahid MD POINT OF CARE TEST ORDERABLE S Performing Organization Address City/State/ZIP Code Phon e Number [address] POCT Glucose (07/07/2017 7:53 AM EST) athologist Signature POC Glucose 178 65 - 199 [facility] mg/dL [facility] Comment: Supplemental ranges: <140 mg/dL before meals <180 mg/dL all other times of the day Specimen Anatomical Collection Method Collection Time Receive d Time (Source) Location / / Volume Laterality Blood specimen 07/07/2017 7:53 AM 017 7:53 (specimen) EST AM EST Daphne Shahid MD POINT OF CARE TEST ORDERABLE S Performing Organization Address City/State/ZIP Code Phon e Number [address] POCT Glucose (07/07/2017 7:03 AM EST) athologist Signature POC Glucose 188 65 - 199 [facility] Comment: Supplemental ranges: <140 mg/dL before meals <180 mg/dL all other times of the day Specimen Anatomical Collection Method Collection Time Receive d Time (Source) Location / / Volume Laterality Blood specimen 07/07/2017 7:03 AM 017 7:03 (specimen) EST AM EST Daphne Shahid MD POINT OF CARE TEST ORDERABLE S Performing Organization Address City/State/ZIP Code Phon e Number [address] (ABNORMAL) POCT Glucose (07/07/2017 6:17 AM EST) athologist Signature POC Glucose 207 (H) 65 - 199 [facility]dL [facility] Comment: Supplemental ranges: <140 mg/dL before meals <180 mg/dL all other times of the day Specimen Anatomical Collection Method Collection Time Receive d Time (Source) Location / / Volume Laterality Blood specimen 07/07/2017 6:17 AM 017 6:17 (specimen) EST AM EST Daphne Shahid MD POINT OF CARE TEST ORDERABLE S Performing Organization Address City/[facility]/ZIP Code Phon e Number [address] Differential, Automated (07/07/2017 5:15 AM EST) athologist [facility] Neutrophils % 69.7 % [facility] Neutr Abs (ANC) 5.32 1.70 - [facility] 6.10 [facility] x10(3)/[facility] LABORATORY Lymphocytes % 16.3 % [facility] Lymphocytes Abs 1.2 0.9 - 3.2 [facility] x10(3)/[facility] LABORATORY Monocytes % 10.5 % [facility] Monocyte Abs 0.8 0.3 - 0.9 [facility] x10(3)/[facility] LABORATORY Eosinophils % 2.5 % [facility] Eosinophils Abs 0.2 0.0 - 0.4 [facility] x10(3)/[facility] LABORATORY Basophils % 0.7 % [facility] Basophils Abs 0.0 0.0 - 0.1 [facility] x10(3)/[facility] LABORATORY Immature Gran [...] Gran Abs 0.02 0.00 - 0.04 x10(3)/[facility] LABORATORY Specimen Anatomical Collection Method Collection Time Receive d Time (Source) Location / / Volume Laterality Blood specimen 07/07/2017 5:15 AM 017 5:34 (specimen) EST AM EST Resulting Agency Comment Spec In Lab Daphne Shahid MD HEMATOLOGY ORDERABLES Performing Organization Address City/State/[place] [address] (ABNORMAL) Hemogram (07/07/2017 5:15 AM EST) Analysis Performed At Patho logist Time Signature WBC 7.6 4.0 - 9.5 [facility] x10(3)/[facility] LABORATORY RBC 4.82 4.58 - [facility] 5.54 [facility] x10(6)/[facility] LABORATORY Hemoglobin 14.4 13.7 - [facility] 16.[facility] gm/dL [facility] Hematocrit 42.1 40.5 - [facility] 48.5 % [facility] MCV 87.3 82.9 - [facility] 93.1 [facility] LABORATORY MCH 29.9 27.5 - [place] [facility] 32.1 pg [facility] MCHC 34.2 32.0 - [facility] 35.7 gm/dL [facility] Platelets 188 145 - 357 [facility] x10(3)/[facility] LABORATORY RDWSD 45.1 (H) 36.0 - [facility] 45.0 [facility] LABORATORY RDWCV 14.3 (H) 11.4 - [facility] 13.8 % [facility] MPV 9.4 7.6 - 12.9 [facility] LABORATORY nRBC % Auto 0.0 % [facility] nRBC Abs Auto 0.000 0.000 - [place] [facility] 0.000 [facility] x10(3)/[facility] LABORATORY Specimen Anatomical Collection Method Collection Time Receive d Time (Source) Location / / Volume Laterality Blood specimen 07/07/2017 5:15 AM 017 5:34 (specimen) EST AM EST Resulting Agency Comment Spec In Lab Daphne Shahid MD HEMATOLOGY ORDERABLES Performing Organization Address City/[facility]/ZIP Code Phon e Number [address] (ABNORMAL) APTT (07/07/2017 5:15 AM EST) P athologist Signature PTT 69 (H) 25 - 35 sec [facility] Comment: The recommended therapeutic range for fu ll dose, unfractionated heparin at [facility] is 80 ? 114 seconds. The use [...] Shahid MD HEMATOLOGY ORDERABLES Performing Organization Address City/[facility]/ZIP Code Phon e Number [address] Magnesium (07/07/2017 5:15 AM EST) P athologist Signature Magnesium 0.94 0.69 - 1.07 [facility] mmol/L [facility] Specimen Anatomical Collection Method Collection Time Receive d Time (Source) Location / / Volume Laterality Blood specimen 07/07/2017 5:15 AM 017 5:34 (specimen) EST AM EST Resulting Agency Comment Spec In Lab Daphne Shahid MD CHEMISTRY ORDERABLES Performing Organization Address City/[facility]/[place] [address] (ABNORMAL) Basic Metabolic Panel (non-fasting) (07/07/2017 5:15 AM EST) P athologist Signature Glucose Lvl 203 (H) 65 - 199 [facility] mg/dL [facility] Comment: Diabetes: >=200 mg/dL plus symp toms BUN 15 10 - 20 mg/dL [facility] Creatinine 1.09 0.80 - 1.50 [...] Anion Gap 14 5 - 15 mmol/L [facility] Calcium 8.6 8.5 - 10.5 mg/dL [facility] Estimated GFR >60 >=60 [facility] Comment: The reported eGFR should be multiplied b y 1.2 for patients. The MDRD is not an appropriate measure o f renal function for patients with body mass extremes or in patients with acute kidney failure. [email or web address] [email or web address] Specimen Anatomical Collection Method Collection Time Receive d Time (Source) Location / / Volume Laterality Blood specimen 07/07/2017 5:15 AM 017 5:34 (specimen) EST AM EST Resulting Agency Comment Spec In Lab Daphne Shahid MD CHEMISTRY ORDERABLES Performing Organization Address City/[facility]/[place] [address] (ABNORMAL) Cardiac Enzymes (LEB/CGP) (07/07/2017 5:15 AM EST) athologist Signature Troponin-T 2.07 (H) 0.00 - [place] [facility] 0.00 ng/mL [facility] Comment: The 99th percentile for Troponin T is le ss than 0.01 ng/mL, any detectable cTnT concentration using this assay should be considered elevated. According to the third universal definit ion of myocardial infarction the following criteria with a clinical prese ntation consistent with acute myocardial ischemia meets the diagnosis for a myocardial infarction ([place]). Detection of a rise and/or fall of [...] additional sample may be indicated. Reference: Third [place] Definition of Myocardial Infarction. Journal of the [place] [employer] 2012;60:1581-98 CK, Total 88 0 - 200 unit/L [facility] Specimen Anatomical Collection Method Collection Time Receive d Time (Source) Location / / Volume Laterality Blood specimen 07/07/2017 5:15 AM 017 5:34 (specimen) EST AM EST Resulting Agency Comment Spec In Lab Daphne Shahid MD CHEMISTRY ORDERABLES Performing Organization Address City/State/ZIP Code Phon e Number [address] POCT Glucose (07/07/2017 5:01 AM EST) athologist Signature POC Glucose 182 65 - 199 [facility] mg/dL [facility] Comment: Supplemental ranges: <140 mg/dL before meals <180 mg/dL all other times of the day Specimen Anatomical Collection Method Collection Time Receive d Time (Source) Location / / Volume Laterality Blood specimen 07/07/2017 5:01 AM 017 5:01 (specimen) EST AM EST Daphne Shahid MD POINT OF CARE TEST ORDERABLE S Performing Organization Address City/State/[place] [address] POCT Glucose (07/07/2017 4:08 AM EST) athologist Signature POC Glucose 199 65 - 199 [place] [facility] mg/dL [facility] Comment: Supplemental ranges: <140 mg/dL before meals <180 mg/dL all other times of the day Specimen Anatomical Collection Method Collection Time Receive d Time (Source) Location / / Volume Laterality Blood specimen 07/07/2017 4:08 AM 017 4:08 (specimen) EST AM EST Daphne Shahid MD POINT OF CARE TEST ORDERABLE S Performing Organization Address City/State/ZIP Code Phon e Number [address] POCT Glucose (07/07/2017 3:03 AM EST) athologist Signature POC Glucose 188 65 - 199 [place] [facility] mg/dL [facility] Comment: Supplemental ranges: <140 mg/dL before meals <180 mg/dL all other times of the day Specimen Anatomical Collection Method Collection Time Receive d Time (Source) Location / / Volume Laterality Blood specimen 07/07/2017 3:03 AM 017 3:03 (specimen) EST AM EST Daphne Shahid MD POINT OF CARE TEST ORDERABLE S Performing Organization Address City/State/[place] [address] (ABNORMAL) POCT Glucose (07/07/2017 2:08 AM EST) P athologist Signature POC Glucose 200 (H) 65 - 199 [place] [facility] mg/dL [facility] Comment: Supplemental ranges: <140 mg/dL before meals <180 mg/dL all other times of the day Specimen Anatomical Collection Method Collection Time Receive d Time (Source) Location / / Volume Laterality Blood specimen 07/07/2017 2:08 AM 017 2:08 (specimen) EST AM EST Daphne Shahid MD POINT OF CARE TEST ORDERABLE S Performing Organization Address City/State/[place] [address] (ABNORMAL) POCT Glucose (07/07/2017 1:31 AM EST) P athologist Signature POC Glucose 209 (H) 65 - 199 [facility] mg/dL [facility] Comment: Supplemental ranges: <140 mg/dL before meals <180 mg/dL all other times of the day Specimen Anatomical Collection Method Collection Time Receive d Time (Source) Location / / Volume Laterality Blood specimen 07/07/2017 1:31 AM 017 1:31 (specimen) EST AM EST Daphne Shahid MD POINT OF CARE TEST ORDERABLE S Performing Organization Address City/[facility]/[place] [address] XR Chest PA or [...] Glucose 161 65 - 199 [facility] mg/dL [facility] Comment: Supplemental ranges: <140 mg/dL before meals <180 mg/dL all other times of the day Specimen Anatomical Collection Method Collection Time Receive d Time (Source) Location / / Volume Laterality Blood specimen 07/07/2017 12:07 7 (specimen) AM EST 12:07 AM EST Daphne Shahid MD POINT OF CARE TEST ORDERABLE S Performing Organization Address City/[facility]/[place] [address] (ABNORMAL) APTT (07/07/2017 12:00 AM EST) athologist Signature PTT 103 (H) 25 - 35 sec [facility] Comment: The recommended therapeutic range for fu ll dose, unfractionated heparin at [facility] is 80 ? 114 seconds. The use [...] Address City/State/ZIP Code Phon e Number [address] POCT Glucose (07/06/2017 9:55 PM EST) athologist Signature POC Glucose 109 65 - 199 [facility] mg/dL [facility] Comment: Supplemental ranges: <140 mg/dL before meals <180 mg/dL all other times of the day Specimen Anatomical Collection Method Collection Time Receive d Time (Source) Location / / Volume Laterality Blood specimen 07/06/2017 9:55 PM 017 9:55 (specimen) EST PM EST Daphne Shahid MD POINT OF CARE TEST ORDERABLE S Performing Organization Address City/State/ZIP Code Phon e Number [address] POCT Glucose (07/06/2017 9:04 PM EST) athologist Signature POC Glucose 120 65 - 199 [facility]dL [facility] Comment: Supplemental ranges: <140 mg/dL before meals <180 mg/dL all other times of the day Specimen Anatomical Collection Method Collection Time Receive d Time (Source) Location / / Volume Laterality Blood specimen 07/06/2017 9:04 PM 017 9:04 (specimen) EST PM EST Daphne Shahid MD POINT OF CARE TEST ORDERABLE S Performing Organization Address City/State/ZIP Code Phon e Number [address] POCT Glucose (07/06/2017 7:45 PM EST) athologist Signature POC Glucose 158 65 - 199 [facility] mg/dL [facility] Comment: Supplemental ranges: <140 mg/dL before meals <180 mg/dL all other times of the day Specimen Anatomical Collection Method Collection Time Receive d Time (Source) Location / / Volume Laterality Blood specimen 07/06/2017 7:45 PM 017 7:45 (specimen) EST PM EST Daphne Shahid MD POINT OF CARE TEST ORDERABLE S Performing Organization Address City/State/ZIP Code Phon e Number [address] Potassium (07/06/2017 7:40 PM EST) athologist Signature Potassium 3.9 3.5 - 5.0 [facility] mmol/L [facility] Comment: Please note: ??Patients with [...] Organization Address City/State/[place] [address] (ABNORMAL) Cardiac Enzymes (LEB/CGP) (07/06/2017 7:40 PM EST) athologist Signature Troponin-T 2.27 (H) 0.00 - [facility] 0.00 ng/mL [facility] Comment: The 99th percentile for Troponin T is le ss than 0.01 ng/mL, any detectable cTnT concentration using this assay should be considered elevated. According to the third universal definit ion of myocardial infarction the following criteria with a clinical prese ntation consistent with acute myocardial ischemia meets the diagnosis for a myocardial infarction ([place]). Detection of a rise and/or fall of [...] additional sample may be indicated. Reference: Third [place] Definition of Myocardial Infarction. Journal of the [place] [employer] 2012;60:1581-98 CK, Total 93 0 - 200 unit/L [facility] Specimen Anatomical Collection Method Collection Time Receive d Time (Source) Location / / Volume Laterality Blood specimen 07/06/2017 7:40 PM 017 7:52 (specimen) EST PM EST Resulting Agency Comment Spec In Lab Daphne Shahid MD CHEMISTRY ORDERABLES Performing Organization Address City/[facility] [address] (ABNORMAL) POCT Glucose (07/06/2017 7:13 PM EST) athologist Signature POC Glucose 200 (H) 65 - 199 [facility] mg/dL [facility] Comment: Supplemental ranges: <140 mg/dL before meals <180 mg/dL all other times of the day Specimen Anatomical Collection Method Collection Time Receive d Time (Source) Location / / Volume Laterality Blood specimen 07/06/2017 7:13 PM 017 7:13 (specimen) EST PM EST Daphne Shahid MD POINT OF CARE TEST ORDERABLE S Performing Organization Address [facility] [address] (ABNORMAL) APTT (07/06/2017 6:15 PM EST) athologist Signature PTT 94 (H) 25 - 35 sec [facility] Comment: The recommended therapeutic range for fu ll dose, unfractionated heparin at [facility] is 80 ? 114 seconds. The use [...] Shahid MD HEMATOLOGY ORDERABLES Performing Organization Address City/[facility] [place] [address] (ABNORMAL) POCT Glucose (07/06/2017 6:03 PM EST) athologist Signature POC Glucose 236 (H) 65 - 199 [facility] mg/dL [facility] Comment: Supplemental ranges: <140 mg/dL before meals <180 mg/dL all other times of the day Specimen Anatomical Collection Method Collection Time Receive d Time (Source) Location / / Volume Laterality Blood specimen 07/06/2017 6:03 PM 017 6:03 (specimen) EST PM EST Daphne Shahid MD POINT OF CARE TEST ORDERABLE S Performing Organization Address City/State/[place] [address] (ABNORMAL) POCT Glucose (07/06/2017 5:01 PM EST) P athologist Signature POC Glucose 235 (H) 65 - 199 [place] mg/dL [facility] Comment: Supplemental ranges: <140 mg/dL before meals <180 mg/dL all other times of the day Specimen Anatomical Collection Method Collection Time Receive d Time (Source) Location / / Volume Laterality Blood specimen 07/06/2017 5:01 PM 017 5:01 (specimen) EST PM EST Daphne Shahid MD POINT OF CARE TEST ORDERABLE S Performing Organization Address City/State/[place] [address] (ABNORMAL) POCT Glucose (07/06/2017 4:06 PM EST) P athologist Signature POC Glucose 202 (H) 65 - 199 [place] mg/dL [facility] Comment: Supplemental ranges: <140 mg/dL before meals <180 mg/dL all other times of the day Specimen Anatomical Collection Method Collection Time Receive d Time (Source) Location / / Volume Laterality Blood specimen 07/06/2017 4:06 PM 017 4:06 (specimen) EST PM EST Daphne Shahid MD POINT OF CARE TEST ORDERABLE S Performing Organization Address City/State/[place] [address] POCT Glucose (07/06/2017 2:59 PM EST) P athologist Signature POC Glucose 178 65 - 199 [place] mg/dL [facility] Comment: Supplemental ranges: <140 mg/dL before meals <180 mg/dL all other times of the day Specimen Anatomical Collection Method Collection Time Receive d Time (Source) Location / / Volume Laterality Blood specimen 07/06/2017 2:59 PM 017 2:59 (specimen) EST PM EST Daphne Shahid MD POINT OF CARE TEST ORDERABLE S Performing Organization Address City/State/[place] [address] (ABNORMAL) Cardiac Enzymes (LEB/CGP) (07/06/2017 2:10 PM EST) athologist Signature Troponin-T 2.34 (H) 0.00 - [facility] 0.00 ng/mL [facility] Comment: The 99th percentile for Troponin T is le ss than 0.01 ng/mL, any detectable cTnT concentration using this assay should be considered elevated. According to the third universal definit ion of myocardial infarction the following criteria with a clinical prese ntation consistent with acute myocardial ischemia meets the diagnosis for a myocardial infarction ([place]). Detection of a rise and/or fall of [...] additional sample may be indicated. Reference: Third [place] Definition of Myocardial Infarction. Journal of the [place] [employer] 2012;60:1581-98 CK, Total 101 0 - 200 unit/L [facility] Specimen Anatomical Collection Method Collection Time Receive d Time (Source) Location / / Volume Laterality Blood specimen 07/06/2017 2:10 PM 017 2:26 (specimen) EST PM EST Resulting Agency Comment Spec In Lab Daphne Shahid MD CHEMISTRY ORDERABLES Performing Organization Address City/State/ZIP Code Phon e Number [address] POCT Glucose (07/06/2017 2:08 PM EST) athologist Signature POC Glucose 192 65 - 199 [place] mg/dL [facility] Comment: Supplemental ranges: <140 mg/dL before meals <180 mg/dL all other times of the day Specimen Anatomical Collection Method Collection Time Receive d Time (Source) Location / / Volume Laterality Blood specimen 07/06/2017 2:08 PM 017 2:08 (specimen) EST PM EST Daphne Shahid MD POINT OF CARE TEST ORDERABLE S Performing Organization Address City/[facility]/ZIP Code Phon e Number [address] POCT Glucose (07/06/2017 1:04 PM EST) athologist Signature POC Glucose 162 65 - 199 [place] mg/dL [facility] Comment: Supplemental ranges: <140 mg/dL before meals <180 mg/dL all other times of the day Specimen Anatomical Collection Method Collection Time Receive d Time (Source) Location / / Volume Laterality Blood specimen 07/06/2017 1:04 PM 017 1:04 (specimen) EST PM EST Daphne Shahid MD POINT OF CARE TEST ORDERABLE S Performing Organization Address City/[facility]/[place] [address] POCT Glucose (07/06/2017 12:05 PM EST) athologist Signature POC Glucose 196 65 - 199 [place] mg/dL [facility] Comment: Supplemental ranges: <140 mg/dL before meals <180 mg/dL all other times of the day Specimen Anatomical Collection Method Collection Time Receive d Time (Source) Location / / Volume Laterality Blood specimen 07/06/2017 12:05 7 (specimen) PM EST 12:05 PM EST Daphne Shahid MD POINT OF CARE TEST ORDERABLE S Performing Organization Address City/State/[place] [address] EKG 12 Lead (07/06/2017 12:00 PM EST) Component Value Ref Range Test Analysis Performed Pathologis t Method Time At Signature Ventricular rate 91 BPM MUSE SYSTEM Atrial Rate 91 BPM MUSE SYSTEM P-R Interval 140 ms MUSE SYSTEM QRS Duration 94 ms MUSE SYSTEM Q-T Interval 394 ms MUSE SYSTEM QTC Calculated 484 ms MUSE SYSTEM (Bezet) Calculated P [place] 36 degrees MUSE SYSTEM Calculated R [place] -19 degrees MUSE SYSTEM Calculated T [place] 104 degrees MUSE SYSTEM INTERPRETATION Normal sinus rhythm MUSE SYSTEM 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) ST & T wave abnormality, consider lateral ischemia Abnormal ECG When compared with ECG of 05-JUL-2017 20:39, No significant change was found Confirmed by MD Luci, Taurus Braun ([id number]) on 07/06/2017 5:07:33 PM Specimen Anatomical Collection Method Collection Time Receive d Time (Source) Location / / Volume Laterality 07/06/2017 12:00 07/06/2017 5:07 PM EST PM EST Daphne Shahid MD ECG ORDERABLES Performing Organization Address City/State/ZIP Code Phon e Number MUSE SYSTEM ABORH Recheck Status (07/06/2017 12:00 PM EST) [facility] Method Time Signature ABORH Type Completed [facility] LABORATORY Specimen Anatomical Collection Method Collection Time Receive d Time (Source) Location / / Volume Laterality Blood specimen 07/06/2017 12:00 7 (specimen) PM EST 12:24 PM EST Resulting Agency Comment Spec In Lab Daphne Shahid MD BLOOD BANK ORDERABLES Performing Organization Address City/State/[place] [address] Antibody screen (07/06/2017 12:00 PM EST) [facility] Method Time Signature Ab Screen Negative [facility] LABORATORY Expires at 07/09/2017 [place] ZHAOSU [id number] on: [facility] Specimen Anatomical Collection Method Collection Time Receive d Time (Source) Location / / Volume Laterality Blood specimen 07/06/2017 12:00 12/12/201 7 (specimen) PM EST 12:24 PM EST Resulting Agency Comment Spec In Lab Daphne Shahid MD BLOOD BANK ORDERABLES Performing Organization Address City/[facility]/[place] [address] ABO/Rh Typing (07/06/2017 12:00 PM EST) P athologist Signature ABORh Type O Pos [facility] Specimen Anatomical Collection Method Collection Time Receive d Time (Source) Location / / Volume Laterality Blood specimen 07/06/2017 12:00 7 (specimen) PM EST 12:24 PM EST Resulting Agency Comment Spec In Lab Daphne Shahid MD BLOOD BANK ORDERABLES Performing Organization Address [facility] [place] [address] Prothrombin Time (07/06/2017 11:24 AM EST) P athologist Signature PT 13.3 11.8 - 14.0 [facility] LABORATORY INR 1.0 0.9 - 1.1 [facility] [...] Shahid MD HEMATOLOGY ORDERABLES Performing Organization Address City/[facility]/[place] [address] (ABNORMAL) APTT (07/06/2017 11:24 AM EST) P athologist Signature PTT 52 (H) 25 - 35 sec [facility] Comment: The recommended therapeutic range for fu ll dose, unfractionated heparin at [facility] is 80 ? 114 seconds. The use [...] Address City/State/ZIP Code Phon e Number [address] POCT Glucose (07/06/2017 11:02 AM EST) athologist Signature POC Glucose 187 65 - 199 [facility] Comment: Supplemental ranges: <140 mg/dL before meals <180 mg/dL all other times of the day Specimen Anatomical Collection Method Collection Time Receive d Time (Source) Location / / Volume Laterality Blood specimen 07/06/2017 11:02 7 (specimen) AM EST 11:02 AM EST Daphne Shahid MD POINT OF CARE TEST ORDERABLE S Performing Organization Address City/[facility]/ZIP Code Phon e Number [address] POCT Glucose (07/06/2017 10:18 AM EST) athologist Signature POC Glucose 193 65 - 199 [facility] Comment: Supplemental ranges: <140 mg/dL before meals <180 mg/dL all other times of the day Specimen Anatomical Collection Method Collection Time Receive d Time (Source) Location / / Volume Laterality Blood specimen 07/06/2017 10:18 7 (specimen) AM EST 10:18 AM EST Daphne Shahid MD POINT OF CARE TEST ORDERABLE S Performing Organization Address City/[facility]/ZIP Code Phon e Number [address] POCT Glucose (07/06/2017 9:25 AM EST) P athologist Signature POC Glucose 182 65 - 199 [facility] mg/dL [facility] Comment: Supplemental ranges: <140 mg/dL before meals <180 mg/dL all other times of the day Specimen Anatomical Collection Method Collection Time Receive d Time (Source) Location / / Volume Laterality Blood specimen 07/06/2017 9:25 AM 017 9:25 (specimen) EST AM EST Daphne Shahid MD POINT OF CARE TEST ORDERABLE S Performing Organization Address City/State/[place] [address] (ABNORMAL) Cardiac Enzymes (LEB/CGP) (07/06/2017 8:10 AM EST) P athologist Signature Troponin-T 2.26 (H) 0.00 - [place] 0.00 ng/mL [facility] Comment: The 99th percentile for Troponin T is le ss than 0.01 ng/mL, any detectable cTnT concentration using this assay should be considered elevated. According to the third universal definit ion of myocardial infarction the following criteria with a clinical prese ntation consistent with acute myocardial ischemia meets the diagnosis for a myocardial infarction ([place]). Detection of a rise and/or fall of [...] additional sample may be indicated. Reference: Third [place] Definition of Myocardial Infarction. Journal of the [place] [employer]iology 2012;60:1581-98 CK, Total 124 0 - 200 unit/L [facility] Specimen Anatomical Collection Method Collection Time Receive d Time (Source) Location / / Volume Laterality Blood specimen 07/06/2017 8:10 AM 017 8:23 (specimen) EST AM EST Resulting Agency Comment Spec In Lab Daphne Shahid MD CHEMISTRY ORDERABLES Performing Organization Address City/State/ZIP Code Phon e Number [address] Magnesium (07/06/2017 8:10 AM EST) athologist Signature Magnesium 0.84 0.69 - 1.07 [facility] mmol/L [facility] Specimen Anatomical Collection Method Collection Time Receive d Time (Source) Location / / Volume Laterality Blood specimen 07/06/2017 8:10 AM 017 8:21 (specimen) EST AM EST Resulting Agency Comment Spec In Lab Daphne Shahid MD CHEMISTRY ORDERABLES Performing Organization Address City/[facility] Code Phon e Number [address] (ABNORMAL) Basic Metabolic Panel (non-fasting) (07/06/2017 8:10 AM EST) athologist Signature Glucose Lvl 199 65 - 199 [facility] mg/dL [facility] Comment: Diabetes: >=200 mg/dL plus symp toms BUN 16 10 - 20 mg/dL [facility] Creatinine 1.04 0.80 - 1.50 [...] Anion Gap 13 5 - 15 mmol/L [facility] Calcium 8.1 (L) 8.5 - 10.5 mg/dL [place] [facility] Estimated GFR >60 >=60 [facility] Comment: The reported eGFR should be multiplied b y 1.2 for patients. The MDRD is not an appropriate measure o f renal function for patients with body mass extremes or in patients with acute kidney failure. http://Fanwards/DHnkdep http://Fanwards/DHMCnkf Specimen Anatomical Collection Method Collection Time Receive d Time (Source) Location / / Volume Laterality Blood specimen 07/06/2017 8:10 AM 017 8:21 (specimen) EST AM EST Resulting Agency Comment Spec In Lab Daphne Shahid MD CHEMISTRY ORDERABLES Performing Organization Address City/[facility]/ZIP Code Phon e Number [address] POCT Glucose (07/06/2017 7:34 AM EST) P athologist Signature POC Glucose 198 65 - 199 [facility]/dL [facility] Comment: Supplemental ranges: <140 mg/dL before meals <180 mg/dL all other times of the day Specimen Anatomical Collection Method Collection Time Receive d Time (Source) Location / / Volume Laterality Blood specimen 07/06/2017 7:34 AM 017 7:34 (specimen) EST AM EST Daphne Shahid MD POINT OF CARE TEST ORDERABLE S Performing Organization Address City/[facility]/ZIP Code Phon e Number [address] POCT Glucose (07/06/2017 7:03 AM EST) P athologist Signature POC Glucose 181 65 - 199 [facility] Comment: Supplemental ranges: <140 mg/dL before meals <180 mg/dL all other times of the day Specimen Anatomical Collection Method Collection Time Receive d Time (Source) Location / / Volume Laterality Blood specimen 07/06/2017 7:03 AM 017 7:03 (specimen) EST AM EST Daphne Shahid MD POINT OF CARE TEST ORDERABLE S Performing Organization Address City/State/[place] [address] XR Chest PA or [...] Signature POC Glucose 172 65 - 199 [facility] mg/dL [facility] Comment: Supplemental ranges: <140 mg/dL before meals <180 mg/dL all other times of the day Specimen Anatomical Collection Method Collection Time Receive d Time (Source) Location / / Volume Laterality Blood specimen 07/06/2017 6:21 AM 017 6:21 (specimen) EST AM EST Daphne Shahid MD POINT OF CARE TEST ORDERABLE S Performing Organization Address City/[facility]/ZIP Code Phon e Number [address] POCT Glucose (07/06/2017 5:08 AM EST) athologist Signature POC Glucose 154 65 - 199 [place] mg/dL [facility] Comment: Supplemental ranges: <140 mg/dL before meals <180 mg/dL all other times of the day Specimen Anatomical Collection Method Collection Time Receive d Time (Source) Location / / Volume Laterality Blood specimen 07/06/2017 5:08 AM 017 5:08 (specimen) EST AM EST Daphne Shahid MD POINT OF CARE TEST ORDERABLE S Performing Organization Address City/State/ZIP Code Phon e Number [address] POCT Glucose (07/06/2017 4:05 AM EST) athologist Signature POC Glucose 142 65 - 199 [facility] Comment: Supplemental ranges: <140 mg/dL before meals <180 mg/dL all other times of the day Specimen Anatomical Collection Method Collection Time Receive d Time (Source) Location / / Volume Laterality Blood specimen 07/06/2017 4:05 AM 017 4:05 (specimen) EST AM EST Daphne Shahid MD POINT OF CARE TEST ORDERABLE S Performing Organization Address City/State/ZIP Code Phon e Number [address] POCT Glucose (07/06/2017 3:00 AM EST) athologist Signature POC Glucose 116 65 - 199 [facility] Comment: Supplemental ranges: <140 mg/dL before meals <180 mg/dL all other times of the day Specimen Anatomical Collection Method Collection Time Receive d Time (Source) Location / / Volume Laterality Blood specimen 07/06/2017 3:00 AM 017 3:00 (specimen) EST AM EST Daphne Shahid MD POINT OF CARE TEST ORDERABLE S Performing Organization Address City/[facility]/[place] [address] Potassium (07/06/2017 2:20 AM EST) athologist Signature Potassium 3.9 3.5 - 5.0 [facility] mmol/L [facility] Comment: Please note: ??Patients with [...] Shahid MD CHEMISTRY ORDERABLES Performing Organization Address City/[facility]/ZIP [facility] Phon e Number [address] Differential, Automated (07/06/2017 2:20 AM EST) athologist Signature Neutrophils % 72.9 % [facility] Neutr Abs (ANC) 5.53 1.70 - [facility] 6.10 [facility] x10(3)/[facility] LABORATORY Lymphocytes % 16.4 % [facility] Lymphocytes Abs 1.2 0.9 - 3.2 [facility] x10(3)/[facility] LABORATORY Monocytes % 9.4 % [facility] Monocyte Abs 0.7 0.3 - 0.9 [facility] x10(3)/[facility] LABORATORY Eosinophils % 0.5 % [facility] Eosinophils Abs 0.0 0.0 - 0.4 [facility] x10(3)/[facility] LABORATORY Basophils % 0.4 % [facility] Basophils Abs 0.0 0.0 - 0.1 [facility] x10(3)/[facility] LABORATORY Immature Gran [...] Gran Abs 0.03 0.00 - 0.04 x10(3)/[facility]OR[facility] Specimen Anatomical Collection Method Collection Time Receive d Time (Source) Location / / Volume Laterality Blood specimen 07/06/2017 2:20 AM 017 2:33 (specimen) EST AM EST Resulting Agency Comment Spec In Lab Daphne Shahid MD HEMATOLOGY ORDERABLES Performing Organization Address City/State/[place] [address] (ABNORMAL) Hemogram (07/06/2017 2:20 AM EST) Analysis Performed At Patho logist Time Signature WBC 7.6 4.0 - 9.5 [facility] x10(3)/[facility] LABORATORY RBC 4.52 (L) 4.58 - [facility] 5.54 [facility] x10(6)/[facility] LABORATORY Hemoglobin 13.4 (L) 13.7 - [facility] 16.5 gm/dL [facility] Hematocrit 39.7 (L) 40.5 - [facility] SU 48.5 % [facility] MCV 87.8 82.9 - [facility] 93.1 [facility] LABORATORY MCH 29.6 27.5 - [place] 32.1 pg [facility] MCHC 33.8 32.0 - [facility] 35.7 gm/dL [facility] Platelets 189 145 - 357 [facility] x10(3)/[facility] LABORATORY RDWSD 45.6 (H) 36.0 - [facility] SU 45.0 [facility] LABORATORY RDWCV 14.3 (H) 11.4 - [facility] 13.8 % [facility] MPV 9.1 7.6 - 12.9 [facility] LABORATORY nRBC % Auto 0.0 % [facility] nRBC Abs Auto 0.000 0.000 - [place] DAVIS 0.000 [facility] x10(3)/[facility] LABORATORY Specimen Anatomical Collection Method Collection Time Receive d Time (Source) Location / / Volume Laterality Blood specimen 07/06/2017 2:20 AM 017 2:33 (specimen) EST AM EST Resulting Agency Comment Spec In Lab Daphne Shahid MD HEMATOLOGY ORDERABLES Performing Organization Address City/State/ZIP Code Phon e Number [address] (ABNORMAL) APTT (07/06/2017 2:20 AM EST) P athologist Signature PTT 52 (H) 25 - 35 sec [facility] Comment: The recommended therapeutic range for fu ll dose, unfractionated heparin at [facility] is 80 ? 114 seconds. The use [...] Organization Address City/State/[place] [address] POCT Glucose (07/06/2017 2:20 AM EST) P athologist Signature POC Glucose 115 65 - 199 [facility] mg/dL [facility] Comment: Supplemental ranges: <140 mg/dL before meals <180 mg/dL all other times of the day Specimen Anatomical Collection Method Collection Time Receive d Time (Source) Location / / Volume Laterality Blood specimen 07/06/2017 2:20 AM 017 2:20 (specimen) EST AM EST Daphne Shahid MD POINT OF CARE TEST ORDERABLE S Performing Organization Address City/State/[place] [address] (ABNORMAL) Cardiac Enzymes (LEB/CGP) (07/06/2017 2:20 AM EST) P athologist Signature Troponin-T 2.13 (H) 0.00 - [place] 0.00 ng/mL [facility] Comment: The 99th percentile for Troponin T is le ss than 0.01 ng/mL, any detectable cTnT concentration using this assay should be considered elevated. According to the third universal definit ion of myocardial infarction the following criteria with a clinical prese ntation consistent with acute myocardial ischemia meets the diagnosis for a myocardial infarction ([place]). Detection of a rise and/or fall of [...] additional sample may be indicated. Reference: Third [place] Definition of Myocardial Infarction. Journal of the [place] [employer] 2012;60:1581-98 CK, Total 129 0 - 200 unit/L [facility] Specimen Anatomical Collection Method Collection Time Receive d Time (Source) Location / / Volume Laterality Blood specimen 07/06/2017 2:20 AM 017 2:33 (specimen) EST AM EST Resulting Agency Comment Spec In Lab Daphne Shahid MD CHEMISTRY ORDERABLES Performing Organization Address City/State/[place] [address] (ABNORMAL) Hemoglobin A1c (07/06/2017 2:20 AM EST) Analysis Performed At Patho logist Time Signature Hemoglobin A1C 6.8 (H) 4.3 - 5.6 [place] DAVIS [facility] Comment: Reference Range: [...] Mellitus, Diabetes Care 2013; 36: Suppl. 1, S67-37 Est Avg Gluc See note mg/dL PROCTOR [...] into estimated average glucose values. ??Diabetes Care 2008:31(8):5354-1949. Specimen Anatomical Collection Method Collection Time Receive d Time (Source) Location / / Volume Laterality Blood specimen 07/06/2017 2:20 AM 017 2:34 (specimen) EST AM EST Resulting Agency Comment Spec In Lab Daphne Shahid MD CHEMISTRY ORDERABLES Performing Organization Address City/State/ZIP [place] [address] (ABNORMAL) Lipid Panel (07/06/2017 2:20 AM EST) [facility] Method Time Signature Chol, Total 150 <=239 [place] mg/dL [facility] LAB[facility]ORY Triglycerides 129 <=199 [place] mg/dL [facility] LABORATORY HDL 32 (L) >=40 [place] mg/dL [facility] LABORATORY LDL Cholesterol 92 <=190 [place] mg/dL [facility] LABORATORY Chol/HDL Ratio 4.7 ratio [facility] Lipid See Note [place] Interpretation [facility] Comment: Lipid management should be guided by a p atient? s ASCVD risk, goals and preferences. ACC/AHA Guidelines recommend high intens ity statin if clinical ASCVD or LDL greater than or equal to 190 mg/dL. http://PatientKeeper.[employer]/JQR-WFK-Wgkaxlnut Adults aged 40-75 with LDL 70-189 mg/dL should have their 10 year ASCVD risk estimated with the ACC/AHA ASCVD risk es timator http://tools.acc.org/XZWLH-Snws-Afyatwpe r/ Statin should be discussed if risk [...] Address City/State/ZIP Code [place] [address] POCT Glucose (07/06/2017 1:09 AM EST) athologist Signature POC Glucose 121 65 - 199 [facility] SU mg/dL [facility] Comment: Supplemental ranges: <140 mg/dL before meals <180 mg/dL all other times of the day Specimen Anatomical Collection Method Collection Time Receive d Time (Source) Location / / Volume Laterality Blood specimen 07/06/2017 1:09 AM 017 1:09 (specimen) EST AM EST Daphne Shahid MD POINT OF CARE TEST ORDERABLE S Performing Organization Address City/State/ZIP Code Phon e Number [address] POCT Glucose (07/06/2017 12:06 AM EST) athologist Signature POC Glucose 147 65 - 199 [facility] Comment: Supplemental ranges: <140 mg/dL before meals <180 mg/dL all other times of the day Specimen Anatomical Collection Method Collection Time Receive d Time (Source) Location / / Volume Laterality Blood specimen 07/06/2017 12:06 7 (specimen) AM EST 12:06 AM EST Daphne Shahid MD POINT OF CARE TEST ORDERABLE S Performing Organization Address City/State/[place] [address] (ABNORMAL) POCT Glucose (07/05/2017 10:56 PM EST) athologist Signature POC Glucose 200 (H) 65 - 199 [place] mg/dL [facility] Comment: Supplemental ranges: <140 mg/dL before meals <180 mg/dL all other times of the day Specimen Anatomical Collection Method Collection Time Receive d Time (Source) Location / / Volume Laterality Blood specimen 07/05/2017 10:56 7 (specimen) PM EST 10:56 PM EST Daphne Shahid MD POINT OF CARE TEST ORDERABLE S Performing Organization Address City/State/[place] [address] (ABNORMAL) POCT Glucose (07/05/2017 10:05 PM EST) P athologist Signature POC Glucose 225 (H) 65 - 199 [facility] Comment: Supplemental ranges: <140 mg/dL before meals <180 mg/dL all other times of the day Specimen Anatomical Collection Method Collection Time Receive d Time (Source) Location / / Volume Laterality Blood specimen 07/05/2017 10:05 7 (specimen) PM EST 10:05 PM EST Daphne Shahid MD POINT OF CARE TEST ORDERABLE S Performing Organization Address City/[facility]/[place] [address] (ABNORMAL) POCT Glucose (07/05/2017 9:02 PM EST) athologist Signature POC Glucose 301 (H) 65 - 199 [facility] mg/dL [facility] Comment: Supplemental ranges: <140 mg/dL before meals <180 mg/dL all other times of the day Specimen Anatomical Collection Method Collection Time Receive d Time (Source) Location / / Volume Laterality Blood specimen 07/05/2017 9:02 PM 017 9:02 (specimen) EST PM EST Daphne Shahid MD POINT OF CARE TEST ORDERABLE S Performing Organization Address City/[facility]/[place] [address] XR Chest PA or [...] 474 ms MUSE SYSTEM (Bezet) Calculated P Rosalia 50 degrees MUSE SYSTEM Calculated R Rosalia -28 degrees MUSE SYSTEM Calculated T Rosalia 90 degrees MUSE SYSTEM INTERPRETATION Sinus tachycardia [...] (07/05/2017 8:20 PM EST) [facility] gist Method Time Signature Neutrophils % 88.4 % [facility] Neutr Abs (ANC) 9.08 (H) 1.70 - [facility] 6.10 [facility] x10(3)/[facility] L LABORATORY Lymphocytes % 7.0 % [facility] Lymphocytes Abs 0.7 (L) 0.9 - 3.2 [facility] x10(3)/[facility] LABORATORY Monocytes % 3.7 % [facility] Monocyte Abs 0.4 0.3 - 0.9 [facility] x10(3)/[facility] LABORATORY Eosinophils % 0.1 % [facility] Eosinophils Abs 0.0 0.0 - 0.4 [facility] x10(3)/[facility] LABORATORY Basophils % 0.2 % [facility] Basophils Abs 0.0 0.0 - 0.1 [facility] x10(3)/[facility] LABORATORY Immature Gran % 0.60 % [facility] [...] Gran Abs 0.06 (H) 0.00 - 0.04 x10(3)/[facility] LABORATORY Specimen Anatomical Collection Method Collection Time Receive d Time (Source) Location / / Volume Laterality Blood specimen 07/05/2017 8:20 PM 017 8:27 (specimen) EST PM EST Resulting Agency Comment Spec In Lab Daphne Shahid MD HEMATOLOGY ORDERABLES Performing Organization Address City/State/[place] [address] (ABNORMAL) Hemogram (07/05/2017 8:20 PM EST) Analysis Performed At Patho logist Time Signature WBC 10.3 (H) 4.0 - 9.5 [facility] x10(3)/[facility] LABORATORY RBC 4.64 4.58 - [facility] 5.54 [facility] x10(6)/[facility] LABORATORY Hemoglobin 14.1 13.7 - [facility] 16.5 gm/dL [facility] Hematocrit 40.8 40.5 - [place] [facility] 48.5 % [facility] MCV 87.9 82.9 - [place] [facility] 93.1 [facility] LABORATORY MCH 30.4 27.5 - [facility] 32.1 pg [facility] MCHC 34.6 32.0 - [facility] 35.[facility] gm/dL [facility] Platelets 204 145 - 357 [facility] x10(3)/[facility] LABORATORY RDWSD 46.1 (H) 36.0 - [facility] 45.0 [facility] LABORATORY RDWCV 14.5 (H) 11.4 - [facility] 13.8 % [facility] MPV 9.7 7.6 - 12.9 [facility] LABORATORY nRBC % Auto 0.0 % [facility] nRBC Abs Auto 0.000 0.000 - [place] [facility] 0.000 [facility] x10(3)/[facility] LABORATORY Specimen Anatomical Collection Method Collection Time Receive d Time (Source) Location / / Volume Laterality Blood specimen 07/05/2017 8:20 PM 017 8:27 (specimen) EST PM EST Resulting Agency Comment Spec In Lab Daphne Shahid MD HEMATOLOGY ORDERABLES Performing Organization Address City/State/[place] [address] APTT (07/05/2017 8:20 PM EST) athologist Signature PTT 32 25 - 35 sec [facility] Comment: The recommended therapeutic range for fu ll dose, unfractionated heparin at [facility] is 80 ? 114 seconds. The use [...] Shahid MD HEMATOLOGY ORDERABLES Performing Organization Address City/[facility]/ZIP Code Phon e Number [address] (ABNORMAL) Cardiac Enzymes (LEB/CGP) (07/05/2017 8:20 PM EST) P athologist Signature Troponin-T 2.11 (H) 0.00 - [facility] 0.00 ng/mL [facility] Comment: The 99th percentile for Troponin T is le ss than 0.01 ng/mL, any detectable cTnT concentration using this assay should be considered elevated. According to the third universal definit ion of myocardial infarction the following criteria with a clinical prese ntation consistent with acute myocardial ischemia meets the diagnosis for a myocardial infarction ([place]). Detection of a rise and/or fall of [...] additional sample may be indicated. Reference: Third [place] Definition of Myocardial Infarction. Journal of the [place] College [employer] 2012;60:1581-98 CK, Total 149 0 - 200 unit/L [facility] Specimen Anatomical Collection Method Collection Time Receive d Time (Source) Location / / Volume Laterality Blood specimen 07/05/2017 8:20 PM 017 8:27 (specimen) EST PM EST Resulting Agency Comment Spec In Lab Daphne Shahid MD CHEMISTRY ORDERABLES Performing Organization Address City/[facility]/[place] [address] (ABNORMAL) Magnesium (07/05/2017 8:20 PM EST) athologist Signature Magnesium 0.68 (L) 0.69 - 1.07 [facility] mmol/L [facility] Specimen Anatomical Collection Method Collection Time Receive d Time (Source) Location / / Volume Laterality Blood specimen 07/05/2017 8:20 PM 017 8:27 (specimen) EST PM EST Resulting Agency Comment Spec In Lab Daphne Shahid MD CHEMISTRY ORDERABLES Performing Organization Address City/State/[place] [address] (ABNORMAL) Basic Metabolic Panel (non-fasting) (07/05/2017 8:20 PM EST) athologist Signature Glucose Lvl 321 (H) 65 - 199 [facility] mg/dL [facility] Comment: Diabetes: >=200 mg/dL plus symp toms BUN 20 10 - 20 mg/dL [facility] Creatinine 1.12 0.80 - 1.50 [...] Anion Gap 14 5 - 15 mmol/L [facility] Calcium 8.1 (L) 8.5 - 10.5 mg/dL [facility] Estimated GFR >60 >=60 [facility] Comment: The reported eGFR should be multiplied b y 1.2 for patients. The MDRD is not an appropriate measure o f renal function for patients with body mass extremes or in patients with acute kidney failure. http://Fanwards/DHnkdep http://Fanwards/DHMCnkf Specimen Anatomical Collection Method Collection Time Receive d Time (Source) Location / / Volume Laterality Blood specimen 07/05/2017 8:20 PM 017 8:27 (specimen) EST PM EST Resulting Agency Comment Spec In Lab Daphne Shahid MD CHEMISTRY ORDERABLES Performing Organization Address City/State/[place] [address] (ABNORMAL) POCT Glucose (07/05/2017 7:32 PM EST) athologist Signature POC Glucose 296 (H) 65 - 199 [facility] mg/dL [facility] Comment: Supplemental ranges: <140 mg/dL before meals <180 mg/dL all other times of the day Specimen Anatomical Collection Method Collection Time Receive d Time (Source) Location / / Volume Laterality Blood specimen 07/05/2017 7:32 PM 017 7:32 (specimen) EST PM EST Daphne Shahid MD POINT OF CARE TEST ORDERABLE S Performing Organization Address City/State/[place] [address] CARDIAC CATHETERIZATION (07/05/2017 6:47 PM EST) Specimen (Source) Anatomical Location Collection Method / Collectio n Time Received Time / Laterality Volume Narrative CARDIOMAC SYSTEM - 07/05/2017 7:27 PM ES T ?[facility] ? Cardiac Cathete rization/Intervention Report ? Patient Name: Natalya, Gregory ? Procedure Date: 07/05/2017 ? A #: [id number] ? Primary Physician: Clarisa, Jet T ? Case #: [id number] ? File Name: [id number] ? Catheterization Order Number: [id number] ? [facility] ? Final Report [place], [place] ? Patient Name: ? Gregory Natalya ?ID#: ?[id number] ? : ?1945 ? Procedure Date: ? [...] presented with: non -STEMI (w/i 7 days). [place] ?[employer] angina c lass was IV. 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 ? Jet Mckenna M.D. ? Electronically Signed by: Jet bunch M.D. ? Report Finalized: 07/05/2017 ??19:23 ? Report Last Ammended: 10/26/2017 ??10:29 ? Procedure Note Jet Mckenna MD - 10/26/2017Formatt ing of this note might be different from the original. [facility] Cardiac Catheterization/Intervention Re port Patient Name: Gregory Hoang Procedure Date: 07/05/2017 A #: [id number] Primary Physician: Jet Mckenna Case #: [id number] File Name: [id number] Catheterization Order Number: [id number] [facility] Final Report [place], [place] Patient Name: Gregory Hoang ID#: [id number] : 1945 Procedure Date: July 05, [...] presented with: non-STEMI ( w/i 7 days). [place] [employer] angina class was IV. 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 Jet Mckenna M.D. Electronically Signed by: Jet [...] Mccollum ? (Age): 1945(72y) Med Rec#: ? [id number] ?Sex: ?M ? Site Loc: ? [facility] ?Ht / Wt: ??173(cm)/86(kg) Pt. Loc: ?CCU ? BSA: ?2 Study Date: ?? 07/05/2017 ?Pt. Type: Inpatient Tape: ? Referring: Daphne Shahid ([id number]) Referring: MANDA ALCANTAR Reading: Blade Preston ([id number]) Bundle Collector: Dayami Paula BA, [facility] [...] E-wave Vmax ?0.8 ?m/sec ? MV deceleration [id number] ?msec ? MV A-wave Vmax ?0.8 ?m/sec [...] ? Mid-Inferior ?Akinetic ? Mid-Inferoseptal ?Hypokinetic ? Monument-Septal ? Akinetic ? Monument-Anterior ? Hypokinetic ? Monument-Lateral ?Hypokinetic ? Monument-Inferior ? Akinetic ? Monument-Tip ?Akinetic ? This report has been electronically sign ed by: _ Blade Preston MD ? 07/06/2017 08 :53:15 Images reviewed and interpretation [facility] Procedure Note Blade Preston MD - 07/06/2017Formatt ing of this note might be different from the original. Procedure: Transthoracic Echocardiogram Patient: NATALYA MCBRIDE(Age): [birth year]72y) Med Rec#: [id number] Sex: M Site Loc: [facility] Ht / Wt: 173(cm)/86(kg) Pt. Loc: [facility] BSA: 2 Study Date: 07/05/2017 Pt. Type: Inpatie nt Tape: Referring: Daphne Shahid ([id number]) Referring: MANDA ALCANTAR Reading: Blade Preston ([id number]) Bundle Collector: Dayami Paula BA, [facility] [...] MV E-wave Vmax 0.8 m/sec MV deceleration emjo535 msec MV A-wave Vmax 0.8 m/sec MV [...] Hypokinetic Mid-Posterolateral Hypokinetic Mid-Inferior Akinetic Mid-Inferoseptal Hypokinetic Monument-Septal Akinetic Monument-Anterior Hypokinetic Monument-Lateral Hypokinetic Monument-Inferior Akinetic Monument-Tip Akinetic This report has been electronically sign ed by: _ Blade Preston MD 07/06/2017 08:53:15 Images reviewed and interpretation verif ied [facility] Cardiac Ultrasound Laboratory Daphne Shahid MD ECHO ORDERABLES Performing Organization Address City/State/ZIP Code Phon e Number [facility] Differential, Automated (07/05/2017 4:55 PM EST) P athologist Signature Neutrophils % 77.0 % [facility] Neutr Abs (ANC) 5.26 1.70 - [facility] 6.10 [facility] x10(3)/[facility] LABORATORY Lymphocytes % 13.3 % [facility] Lymphocytes Abs 0.9 0.9 - 3.2 [facility] x10(3)/[facility] LABORATORY Monocytes % 8.2 % [facility] Monocyte Abs 0.6 0.3 - 0.9 [facility] x10(3)/[facility] LABORATORY Eosinophils % 0.7 % [facility] Eosinophils Abs 0.0 0.0 - 0.4 [facility] x10(3)/[facility] LABORATORY Basophils % 0.4 % [facility] Basophils Abs 0.0 0.0 - 0.1 [facility] x10(3)/[facility] LABORATORY Immature Gran [...] Gran Abs 0.03 0.00 - 0.04 x10(3)/[facility] Specimen Anatomical Collection Method Collection Time Receive d Time (Source) Location / / Volume Laterality Blood specimen 07/05/2017 4:55 PM 017 5:24 (specimen) EST PM EST Resulting Agency Comment Spec In Lab Daphne Shahid MD HEMATOLOGY ORDERABLES Performing Organization Address City/State/[place] [address] (ABNORMAL) Hemogram (07/05/2017 4:55 PM EST) Analysis Performed At Patho logist Time Signature WBC 6.8 4.0 - 9.5 [facility] x10(3)/[facility] LABORATORY RBC 4.67 4.58 - [facility] 5.54 [facility] x10(6)/[facility] LABORATORY Hemoglobin 14.0 13.7 - [facility] 16.5 gm/dL [facility] Hematocrit 41.0 40.5 - [facility] 48.5 % [facility] MCV 87.8 82.9 - [facility] 93.1 fL [facility] MCH 30.0 27.5 - [facility] 32.1 pg [facility] MCHC 34.1 32.0 - [facility] 35.7 gm/dL [facility] Platelets 197 145 - 357 [facility] x10(3)/[facility] LABORATORY RDWSD 46.4 (H) 36.0 - [facility] 45.0 [facility] LABORATORY RDWCV 14.5 (H) 11.4 - [facility] 13.8 % [facility] MPV 9.7 7.6 - 12.9 [facility] LABORATORY nRBC % Auto 0.0 % [facility] nRBC Abs Auto 0.000 0.000 - [facility] 0.000 [facility] x10(3)/[facility] LABORATORY Specimen Anatomical Collection Method Collection Time Receive d Time (Source) Location / / Volume Laterality Blood specimen 07/05/2017 4:55 PM 017 5:24 (specimen) EST PM EST Resulting Agency Comment Spec In Lab Daphne Shahid MD HEMATOLOGY ORDERABLES Performing Organization Address City/State/[place] [address] (ABNORMAL) Cardiac Enzymes (LEB/CGP) (07/05/2017 4:55 PM EST) P athologist Signature Troponin-T 1.69 (H) 0.00 - [facility] ng/mL [facility] Comment: The 99th percentile for Troponin T is le ss than 0.01 ng/mL, any detectable cTnT concentration using this assay should be considered elevated. According to the third universal definit ion of myocardial infarction the following criteria with a clinical prese ntation consistent with acute myocardial ischemia meets the diagnosis for a myocardial infarction ([place]). Detection of a rise and/or fall of [...] additional sample may be indicated. Reference: Third [place] Definition of Myocardial Infarction. Journal of the [place] College [employer] Cardiology 2012;60:1581-98 CK, Total 191 0 - 200 unit/L [facility] Specimen Anatomical Collection Method Collection Time Receive d Time (Source) Location / / Volume Laterality Blood specimen 07/05/2017 4:55 PM 017 5:56 (specimen) EST PM EST Resulting Agency Comment Spec In Lab Daphne Shahid MD CHEMISTRY ORDERABLES Performing Organization Address City/[facility]/ZIP Code Phon e Number [address] (ABNORMAL) pro-Brain Natriuretic Peptide (07/05/2017 4:55 PM EST) athologist Signature ProBNP 1,598 (H) <=125 [facility] pg/mL [facility] Specimen Anatomical Collection Method Collection Time Receive d Time (Source) Location / / Volume Laterality Blood specimen 07/05/2017 4:55 PM 017 5:24 (specimen) EST PM EST Resulting Agency Comment Spec In Lab Daphne Shahid MD CHEMISTRY ORDERABLES Performing Organization Address City/[facility]/[place] [address] Magnesium (07/05/2017 4:55 PM EST) athologist Signature Magnesium 0.78 0.69 - 1.07 [facility] mmol/L [facility] Specimen Anatomical Collection Method Collection Time Receive d Time (Source) Location / / Volume Laterality Blood specimen 07/05/2017 4:55 PM 017 5:24 (specimen) EST PM EST Resulting Agency Comment Spec In Lab Daphne Shahid MD CHEMISTRY ORDERABLES Performing Organization Address City/[facility]/ZIP [facility] [place] [address] (ABNORMAL) Basic Metabolic Panel (non-fasting) (07/05/2017 4:55 PM EST) P athologist Signature Glucose Lvl 230 (H) 65 - 199 [facility] mg/dL [facility] Comment: Diabetes: >=200 mg/dL plus symp toms BUN 19 10 - 20 mg/dL [facility] Creatinine 1.04 0.80 - 1.50 [...] Anion Gap 14 5 - 15 mmol/L [facility] Calcium 8.5 8.5 - 10.5 mg/dL [facility] Estimated GFR >60 >=60 [facility] Comment: The reported eGFR should be multiplied b y 1.2 for patients. The MDRD is not an appropriate measure o f renal function for patients with body mass extremes or in patients with acute kidney failure. http://Fanwards/DHnkdep http://Fanwards/DHnkf Specimen Anatomical Collection Method Collection Time Receive d Time (Source) Location / / Volume Laterality Blood specimen 07/05/2017 4:55 PM 017 5:24 (specimen) EST PM EST Resulting Agency Comment Spec In Lab Daphne Shahid MD CHEMISTRY ORDERABLES Performing Organization Address City/State/[place] [address] (ABNORMAL) APTT (07/05/2017 4:55 PM EST) athologist Signature PTT 41 (H) 25 - 35 sec [facility] Comment: The recommended therapeutic range for fu ll dose, unfractionated heparin at [facility] is 80 ? 114 seconds. The use [...] Shahid MD HEMATOLOGY ORDERABLES Performing Organization Address City/[facility]/[place] [address] (ABNORMAL) POCT Glucose (07/05/2017 4:53 PM EST) athologist Signature POC Glucose 208 (H) 65 - 199 [facility] mg/dL [facility] Comment: Supplemental ranges: <140 mg/dL before meals <180 mg/dL all other times of the day Specimen Anatomical Collection Method Collection Time Receive d Time (Source) Location / / Volume Laterality Blood specimen 07/05/2017 4:53 PM 017 4:53 (specimen) EST PM EST Daphne Shahid MD POINT OF CARE TEST ORDERABLE S Performing Organization Address City/[facility]/ZIP [facility] [place] [place] [address] EKG 12 Lead (07/05/2017 4:32 PM EST) Component Value Ref Range Test Analysis Performed Pathologis t Method Time At Signature Ventricular rate 97 BPM MUSE SYSTEM Atrial Rate 97 BPM MUSE SYSTEM P-R Interval 148 ms MUSE SYSTEM QRS Duration 96 ms MUSE SYSTEM Q-T Interval 364 ms MUSE SYSTEM QTC Calculated 462 ms MUSE SYSTEM (Bezet) Calculated P Rosalia 48 degrees MUSE SYSTEM Calculated R Rosalia -33 degrees MUSE SYSTEM Calculated T Rosalia 98 degrees MUSE SYSTEM INTERPRETATION Normal sinus [...] Coronary atherosclerosis of unspecified type of vessel, gambell or graft Cardiomyopathy, ischemic Other specified forms [...] post-op day 1 in the AM Give UT if unable to take PO, Routine Given [...] dose on Wed07/07/17 at 2100, Until Discontinued, [place] teeth, Routine Given 07/08/2017 10:06 PM EST [...] or norepinephrine is ineffective. Call pager # [phone] if initiated. Rate/Dose Change 07/08/2017 7:01 PM [...] 1634 , Until Wed07/05/17 at 1711, PRIOR, YNAET Deal: cabinet override heparin (porcine) injection 0-4,000 [...] Starting on [place] 07/08/17 at 0427, Until [place] 07/11/17 at 0909, Per Protocol, BOLUS order. [...] 1045 , Until 07/10/17 at 1049, CATHRYN UGIDO (FLEX): cabinet override meTOPROLOL (LOPRESSOR) injection 2.5 [...] if phenyleprine and/or vasopressin ineffective.Call pager # [phone] if initiated., Routine Rate/Dose Change 07/09/2017 1:24 [...] L/min/M2. Maximum volume 2 L. Call warehouse coordinator for additional fluid orders: pager #[phone]. Rate/Dose Verify 07/08/2017 4:00 AM EST 100 [...] post-op day 1 in the AM Give UT if unable to take PO, Routine atorvastatin [...] post-op day 1 in the AM Give UT if unable to take PO
Routine Group [...]
Routine documented in this encounter Care Teams Crusher Loader Equipment Operator Relationship Specialty Start Date End Date Lovely Vicente MD PCP - General 04/16/[address] [place] [address] [address] [place] [address] documented as of this encounter
--- OUTSIDE RECORDS SUMMARY | 2022-02-23 08:58 | XMS_ITS | Encounter Summary ---
:1945 Author Organization [place] [address] Care Team Providers Name Role Phone Lovely Vicente MD Primary Care Provider Encounter Details Date Type Department Care Team Description 07/08/2017 Orders Only Cardiology [facility] [place] [address] Social History Tobacco Use Types Packs/Day [...] Nobles MD [facility] CARDIOLOGY [place], [place] [address] (Wo rk) documented as of [...] Mccollum ? (Age): 1945(72y) Med Rec#: ? [id number] ?Sex: ?M ? Site Loc: ? Ht / Wt: ??(cm)/ (kg) ? Pt. Loc: ? Study Date: ?? 07/07/2017 ?Pt. Type: Tape: ? Referring: Yuan Retana Reading: Yifan Perez MD ([id number]) Performing: Yifan Perez MD ([id number]) Diagnosis: SUMMARY: 1. [facility] [...] ? Mid-Inferior ?Hypokinetic ? Mid-Inferoseptal ?Hypokinetic ? Hardesty-Septal ? Hypokinetic ? Hardesty-Anterior ? Hypokinetic ? Hardesty-Lateral ?Hypokinetic ? Hardesty-Inferior ? Hypokinetic ? Hardesty-Tip ?Not Seen ? This report has been electronically sign ed by: _ Yifan Perez MD ? 07/08/2017 12 :25:18 Images reviewed and interpretation ver ied [facility] Cardiac Ultrasound Laboratory Procedure Note Yifan Perez MD - 07/08/2017Formatt ing of this note might be different from the original. Procedure: Transesophageal Echocardiogra m Patient: NATALYA MCBRIDE(Age): [birth year]72y) Med Rec#: [id number] Sex: M Site Loc: Ht / Wt: (cm)/ (kg) Pt. Loc: Study Date: 07/07/2017 Pt. Type: Tape: Referring: Yuan Retana Reading: Yifan Perez MD ([id number]) Performing: Yifan Perez MD ([id number]) Diagnosis: SUMMARY: 1. Intraoperative AVLEINO [facility] Dr. Mike [...] Hypokinetic Mid-Posterolateral Hypokinetic Mid-Inferior Hypokinetic Mid-Inferoseptal Hypokinetic Hardesty-Septal Hypokinetic Hardesty-Anterior Hypokinetic Hardesty-Lateral Hypokinetic Hardesty-Inferior Hypokinetic Hardesty-Tip Not Seen This report has been electronically sign ed by: _ Yifan Perez MD 07/08/2017 12:25:18 Images reviewed and interpretation verif ied [facility] Cardiac Ultrasound Laboratory Unknown ECHO ORDERABLES Performing Organization Address City/State/ZIP Code Phon e Number [facility] documented in this encounter Visit Diagnoses Not on filedocumented in this encounter Care Teams Warehouse Associate Relationship Specialty Start Date End Date Lovely Vicente MD PCP - General 04/16/[address] [place] [address] documented as of this encounter
--- OUTSIDE RECORDS SUMMARY | 2022-02-23 08:59 | XMS_ITS | Encounter Summary ---
:1945 Author Organization [facility] Address [facility] [place] [address] Care Team Providers Name Role Phone Lovely Vicente MD Primary Care Provider Reason for Visit Auth/Cert Specialty Diagnoses / Procedures Referred By Contact Refer red To Contact Diagnoses STEMI (ST elevation myocardial infarction) NSTEMI STEMI Procedures CARDIAC CATHETERIZATION NAYE IPI Referral ID Status Reason Start Date Expiration Date Visits Requ ested Visits Authorized [id number] 1 1 Encounter Details Date Type Department Care Team Description 07/07/2017 Surgery Main Operating Room Yuan Webber, @ CABG, USING ARTERIAL Barbara Ocampo MD GRAFT;SINGLE ARTERIAL Hospital [facility] GRAFT (WRVU 33.75) [facility] DR Siddiqu[place] [address] SURGERY [phone] [place], [place] [address] (Wo rk) Social [...] this encounter Discharge Summaries Martha Teague, ASSISTANT OPERATIONS MANAGER - 07/14/2017 9:38 AM EST Inpatient - Discharge Summary Patient Name: Gregory Hoang Patient Age: 72 y.o. Birthdate: 1945 Language: Mozambican Race: White Ethnicity: Not nor Admit Date: [...] , @ 1:20p Patient to follow-up with Lamp Assembler/heart failure team in one week. An appointment will be made for you. You may call [phone] Patient to follow-up with Cardiac Surgery, Dr. Yuan Webber, in ~ 4 weeks with CXR, EKG. Inpatient Provider Contact Information: [facility]iac Surgery [facility] [address] FAX [phone] Discharge Diagnoses (Hospital Problems) Primary Diagnoses: CAD [...] SETUP performed by Manny Mcknight MD at [facility] OR ??? PRO CABG, ARTERIAL, SINGLE N/A 07/07/2017 @CABG, USING ARTERIAL GRAFT;SINGLE ARTERIAL GRAFT (WRVU 33.75) performed by Yuan Webber MD at [facility] OR ??? PRO CABG, ARTERY-VEIN, TWO N/A 07/07/2017 @CABG, TWO VENOUS GRAFTS & ARTERIAL GRAFT (WRVU 7.93) performed by Yuan Webber MD at [facility] OR ??? PRO COLONOSCOPY, REMV LESN, SNARE 01/16/2014 COLONOSCOPY, POLYPECTOMY, REMOVAL LESION BY SNARE performed by Nohemi Jaimes MD at [facility] ENDOSCOPY ??? PRO ENDOSCOPY W/VIDEO-ASST VEIN HARVEST, CABG Right 07/07/2017 ENDOSCOPIC HARVEST VEIN(S) FOR CABG (WRVU 0.31) performed by Yuan Webber MD at [facility] OR ??? PRO THYROIDECTOMY 03/28/2013 THYROIDECTOMY, TOTAL OR COMPLETE performed by Manny Mcknight MD at [facility] OR Prior To Admission Medications Prescriptions Prior to Admission Medication Sig Dispense Refill Last Dose ??? levothyroxine (SYNTHROID) 175 mcg Tablet Take 1 tablet by mouth daily. 90 tablet 3 07/05/2017 [id number] ??? ascorbic acid, vitamin C, (VITAMIN C) [...] hospital and ruled infor non-ST segment elevation OK. This almost certainly represents the residual of [...] Hospital Course: Gregory Hoang was admitted to [facility] on 07/05/2017 via the Cardiology Service. During his hospital course, he was taken emergently to the cathode builder for an ongoing STEMI. An IABP was [...] not take or discontinue any prescription or xzxc-bxh-dlkjdxp medications without asking your doctor or pharmacist [...] day to have your insulin doses adjusted. [facility] Endocrine clinic office Discharge Instructions: Call your doctor if: You have a fever of greater than 101 degrees, shaking chills, if you develop redness or drainage from your incision sites, or if you have questions. Please call your surgeon's office if you have any discharge or drainage from your chest incision. Your surgeon, Dr. Yuan Webber and/or the Cardiac Surgery Physician Pediatrics Hospitalist Team may be reached at . Weight: [...] Dr. Yuan Webber. You may use a [place] Track or treadmill but avoid any pulling [...] friends, go to a movie, go to uatsdin, etc. Heavy activities: No hunting, skiing, jogging, snow shoveling, snowmobiling, lawn mowing, swimming, golf or tennis until after your return appointment with the surgeon. Do not ride motorcycles, [employer]'s tractors or horses. Avoid the use of [...] should resume a low fat, low cholesterol, [place] Heart Association Diet/Diabetic diet. Driving: No driving [...] , @ 1:20p Patient to follow-up with Lamp Assembler/heart failure team in one week. Appointment will be made for you. You may call [phone] Patient to follow-up with Cardiac Surgery, Dr. Yuan Webber, in ~ 4 weeks with CXR, EKG. Cardiac Rehabilitation: Gregory Hoang was seen today regarding participation in the outpatient Phase 2 Cardiac Rehabilitation at [facility]. The patient agrees to a referral to this program. The referral will be sent at discharge and the patient should be contacted by the Program within 1- 2 weeks from discharge. ?? Future Appointments and Orders Future Appointments Provider Department Dept Phone 09/07/2017 3:00 PM LAB, THREE L Lab 3L [facility] [phone] 09/07/2017 4:00 PM Luz Prescott MD Endocrinology at [facility] [phone] Future Orders Complete By Expires EKG 12 Lead [EKG1 Custom] 08/14/2017 02/13/2018 Process Instructions: Scheduling Instructions: Questions: Which DH location will this be performed?: [facility] Is a rhythm strip needed?: No If EKG Reason is Pre-op Evaluation, indicate diagnosis for surgery.: XR Chest PA & Lateral (Generic) [61190 [id number] Custom] 08/14/2017 02/13/2018 Process Instructions: Scheduling Instructions: Questions: Where will study be performed?: [facility] Portable exam?: Reason for exam and clinical history: CABG x 3 Other pertinent information: Stat read required?: Date of injury if applicable: Requested Time: Referral to Cardiac Rehab [HFH233 Custom] As directed Process Instructions: If no progress note charted, please enter Clinical details in comments. Scheduling Instructions: Questions: My question or request is: s/p CABG. Cardiac rehab at [facility] Referral to Home Health - at DISCHARGE [XDT7169 CPT(R)] As directed Process Instructions: Scheduling Instructions: Comments: DOCUMENTATION FOR VNA SERVICES (INCLUDING THOSE PATIENTS WITH MEDICARE COVERAGE REQUIRING HOME VNA SERVICES AND/OR HOSPICE SERVICES) PATIENT'S LOCATION: Gregory Hoang [address] [place] [address] [place] [phone] (home) Telephone Information: Addiction Medicine Physician's Name: self In discussion with the attending physician, it is certified that this patient is under their care and that they, or a Nurse Practitioner, or Physician Pediatrics Hospitalist who is working directly with them, had [...] HEALTH AGENCY: [facility] ([facility] [place] [facility] in [place] PHONE: [phone] FAX: [phone] RN orders: Cardiopulmonary assessment, incisional assessment, assess vital signs, assessment of rehab progress, medication management and effectiveness, home safety evaluation. Please draw INR if indicated and send result to:Dr Vicente [phone] PT ORDERS: Continue rehab for endurance, gait stability and strength with mobility and transfers. Home safety evaluation. Home exercise program if appropriate. Start of Care Date:24-48 hours after discharge SPECIAL INSTRUCTIONS: For any follow up questions, needs, or issues please call the Cardiac Surgery Office at [phone] FOR MEDICARE ONLY: (please delete this section [...] noted. Questions: Agency name and contact information: [facility] Patient location post discharge: home What services are requested: Registered Nurse Physical Therapy Start date: Responsible MD post discharge contact info: PCP Arrangements for VNA/home care: As above. VN RN OR PCP TO PLEASE REMOVE CHEST TUBE SUTURES ON OR AFTER 07/17/2017 Signed: Martha Teague APRN [facility] Cardiac Surgery [facility] [address] FAX [phone] Date: 07/14/2017 CC: MD Ivania Cr Betsy, PA [address] [place] [phone] documented in this encounter Discharge Instructions Discharge [...] day to have your insulin doses adjusted. [facility] Endocrine clinic office Patient InstructionsStMartha [...] not take or discontinue any prescription or rbpc-tjo-hudpamt medications without asking your doctor or pharmacist [...] day to have your insulin doses adjusted. [facility] Endocrine clinic office ? Discharge [...] Yuan Webber and/or the Cardiac Surgery Physician Pediatrics Hospitalist Team may be reached at . ?? [...] Dr. Yuan Webber. You may use a [place] Track or treadmill but avoid any pulling [...] friends, go to a movie, go to uatsdin, etc. ?? Heavy activities: No hunting, skiing, jogging, snow shoveling, snowmobiling, lawn mowing, swimming, golf or tennis until after your return appointment with the surgeon. Do not ride motorcycles, [employer]'s tractors or horses. Avoid the use of [...] should resume a low fat, low cholesterol, [place] Heart Association Diet/Diabetic diet. ?? Driving: No [...] @ 1:20p ?? Patient to follow-up with Lamp Assembler/heart failure team in one week. An appointment has been made for you, you can call [phone] ?? Patient to follow-up with Cardiac Surgery, Dr. Yuan Webber, in ~ 4 weeks with CXR, EKG. ? Cardiac Rehabilitation: Gregory Hoang??was seen today regarding participation in the outpatient Phase 2 Cardiac Rehabilitation at [facility]. ?? The patient agrees to a referral to this program.? The referral will be sent at discharge and the patient should be contacted by the Program within 1- 2 weeks from discharge. ? Future Appointments and Orders Future Appointments Provider Department Dept Phone ?? 09/07/2017 3:00 PM LAB, THREE L Lab 3L [facility] [phone] ?? 09/07/2017 4:00 PM Luz Prescott MD Endocrinology at [facility] [phone] Future Orders Complete By Expires ?? EKG 12 Lead [EKG1 Custom] 08/14/2017 02/13/2018 ?? Process Instructions: ? Scheduling Instructions: ? Questions: ? Which location will this be performed?: [facility] ?? Is a rhythm strip needed?: No ?? If EKG Reason is Pre-op Evaluation, indicate diagnosis for surgery.: ?? XR Chest PA & Lateral (Generic) [[id number] Custom] 08/14/2017 02/13/2018 ?? Process Instructions: ? Scheduling Instructions: ? Questions: ? Where will study be performed?: [facility] ?? Portable exam?: ?? Reason for exam and clinical history: CABG x 3 ?? Other pertinent information: ?? Stat read required?: ?? Date of injury if applicable: ?? Requested Time: ?? Referral to Cardiac Rehab [OES430 Custom] As directed ? Process Instructions: ?? If no progress note charted, please enter Clinical details in comments. ?? Scheduling Instructions: ? Questions: ? My question or request is: s/p CABG. Cardiac rehab at [facility] ? Arrangements for VNA/home care: As [...] RN - 07/14/2017 2:34 PM EST The patient/bottling equipment sales representative has been provided a list of Home Health Agencies/DME vendors which serve their preferred geographic area. A letter describing our affiliations was reviewed with them and theywere educated about their right to choose where referrals are placed. Patient requests referral to [facility]. PHONE: [phone] FAX: [phone] Expected date of discharge: 07/14 Referral routed to the Hospital Plan Administrator for matching with agency/vendor and to [...] day to have your insulin doses adjusted. [facility] Endocrine clinic office Kathie Carrera APRN [facility] Endocrinology Diabetes Management Pager [phone] minutes of this 35 minute visit was spent with the patient in counseling on diabetes and treatment plan, reviewing all glucose and insulin data as well as relevant laboratory results with the patient, and coordination of care on the inpatient unit including nursing and primary team. 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 A letter describing our affiliations was reviewed with them and theywere educated about their right to choose where referrals are placed. Patient requests referral to : [facility] ([facility] [place] [facility] in [place] PHONE: [phone] FAX: [phone]. Expected date of discharge: 07/14/17 Referral routed to the Hospital Plan Administrator for matching with agency/vendor and to [...] hours. If BG remains greater than 240, [id number] units (no more than three times) &??call [...] Will continue to follow Katerin Azul APRN [facility] Endocrinology Diabetes Management Pager [phone] minutes of this 25 minute visit [...] of infiltration/extravasation Discussed plan of care with ALMOND SORTER and RN. Elevate exrtemity and apply intermittent Warm compresses. Name of MD contacted Dr. Shaw Brown 07/13/2017 @ 0644 Name of RN contacted Ale Rangel RN Name of Pharmacist if consulted NA Name of Plastics MD ( if consulted) NA (Mandatory photo for infiltrations/ extravasations scoring a stage 2 or greater, but recommended forstage 1)( include measuring tape and identifier in the photo) MECHANIC FOREMAN CARING FOR THIS PATIENT WILL CONTINUE TO [...] intermittent warm compresses Name of MD contacted SATCIE Hernandez 07/13/2017 @ 0800 Name of RN contacted Ale Rangel RN Name of Pharmacist if consulted NA Name of Plastics MD ( if consulted) NA (Mandatory photo for infiltrations/ extravasations scoring a stage 2 or greater, but recommended forstage 1)( include measuring tape and identifier in the photo) MECHANIC FOREMAN CARING FOR THIS PATIENT WILL CONTINUE TO [...] regard to both infiltrates addressed by this keno writer / runner.All of MrMadiha Hoang's responses were entirely appropriate. Images of infiltrates attached here. L Martha Teague, ASSISTANT OPERATIONS MANAGER - 07/13/2017 8:01 AM EST Cardiac Surgery Progress Note: ID: [id number] 72 year old male POD#6 s/p CABGx3 [...] discharge. ?? I have met with the patient/bottling equipment sales representative to discuss discharge planning needs. I have provided the [facility], Office of Care Management letter from the Coding Coordinator pertaining to rehab referrals. I have also provided a letter describing our affiliations within the [facility] and educated them about their right to choose where referrals are placed. ?? I reviewed the different levels of rehab including SNF, swing, acute and LTAC with the patient/bottling equipment sales representative. ?? The patient/bottling equipment sales representative has been provided a list of facilities within their preferred geographic area. ?? I have requested that the patient/bottling equipment sales representative provide at least three choices for referral. ?? The patient/bottling equipment sales representative have requested referrals to: ?? [facility]. [facility] ?? 2. [facility] ?? 3. More to be entered ?? Expected date of discharge: 07/14 Note routed to Hospital Plan Administrator who will communicate referrals to facilities [...] hours. If BG remains greater than 240, [id number] units (no more than three times) & [...] Will continue to follow Katerin Azul APRN [facility] Endocrinology Diabetes Management Pager [phone] 20 minutes of this 35 minute visit was spent with the patient in counseling on diabetes and treatment plan, reviewing all glucose and insulin data as well as relevant laboratory results with the patient, and coordination of care on the inpatient unit including nursing and primary team. Makayla Stevenson APRN - 07/12/2017 9:52 AM EST Cardiac Surgery Progress Note: ID: [id number] 72 year old male POD#5 s/p CABGx3 [...] 07/11/2017 7:18 PM EST Patient arrived from [facility]. VSS. MSI dressing pulled off with fresh [...] hours. If BG remains greater than 240, [id number] units (no more than three times) & [...] AM EST Cardiac Surgery Progress Note: ID: [id number] 72 year old male POD#4 s/p CABGx3 [...] consider alternative means of nutrition support. VIVIAN uBtt Nell Ontiveros RN - 07/11/2017 7:15 AM [...] hours. If BG remains greater than 240, [id number] units (no more than three times) & [...] AM EST Cardiac Surgery Progress Note: ID: [id number] 72 year old male POD#3 s/p CABGx3 [...] Gas) No results found for: PHART, PO2ART, APQ7EAO Assessment/Plan: 72 year old male POD#3 s/p [...] Mami Thao - 07/09/2017 6:29 PM EST Open Soaper Tender Encounter Note Patient Name: Gregory Hoang : [id number] MR#: [id number] Admit Date: 07/05/2017 4:20 PM Hospital Day 4 days Narrative: Patient was sitting in chair, hugging heart pillow, opened his eyes, nodding to come into room Assessment: Patient was sleepy. Intervention and Outcome: Introduced real estate transaction coordinator services and patient reached his hand out in appreciation. Follow-up: Open Soaper Tender remains available for support. Time in Direct Care: 5 min. Mami Thao 07/09/2017 Nick Wadsowrth MD - 07/09/2017 1:35 PM EST STAFF [...] AM EST Cardiac Surgery Progress Note: ID: [id number] 72 year old male POD#2 s/p CABGx3 [...] completed shifts: In: 7977.4 [I.V.:7477.4; Other:500] Out: 5985 [Urine:3000; Other:615] I- 4 L O- 2.7 [...] Attending Surgeon on rounds. Signed: STEPHANIE Iqbal [facility] Section of Cardiac Surgery Date: 07/09/2017 [...] when IABP d/c'ed. Gretchen Carolina, PT Pager [phone] Maddison Cee PA - 07/08/2017 11:27 AM EST Cardiac Surgery Progress Note: ID: [id number] 72 year old male POD#1 s/p CABGx3 [...] Attending Surgeon on rounds. Signed: STEPHANIE Iqbal [facility] Section of Cardiac Surgery Date: 07/08/2017 [...] in place in R femoral. No hematoma. LIBRARY CONSULTANT- Intact Psych- Anxious Skin- Dry, no peripheral [...] intact. IABP in place in R femoral. LIBRARY CONSULTANT- Intact Psych- Anxious Skin- Dry, no peripheral [...] appreciated, JVP 2cm Resp: CTABL in anterior ballesteors Abd: +BS, soft, non-tender, non-distended Ext: warm, [...] note for details. DAPHNE SHAHID MD Pager [phone] Jet Mckenna MD - 07/05/2017 6:48 PM EST Preliminary Cardiac Catheterization Procedure Note: Procedure(s) performed: Left heart cath, IABP insertion Access: Right IT SECURITY ANALYST-->8fr IABP A time-out was conducted prior to [...] effect. Heparin gtt maintained. Pt transferred to cathode builder. documented in this encounter H&P Notes Daphne Shahid MD - 07/05/2017 6:08 PM EST CARDIOLOGY HISTORY & PHYSICAL EXAM Date of Admission: 07/05/2017 ( Hospital Day 0 days ) Responsible Attending: Daphne Shahid MD PCP: Lovely Vicente MD PCP#: [phone] Patient Active Problem List Diagnosis Code ??? [...] load with heparin drip and transferred to [facility]. While there, continued sob, question of chest pain. Stat TTE showing WMA diffusely and EF around 20%. No significant valvular disease. Taken to the cathode builder urgently for ongoing STEMI. [facility] Labs: INR 1.0 WBC 5.88 Hgb [...] monitor I/O - s/p lasix in the cathode builder, redose to aim net neg 1L by [...] Medicine, PGY-2 Cardiology S1, Team Pager # [phone] CARDIOLOGY ATTENDING NOTE Patient: Gregory Hoang Date [...] amenable for PCI. DAPHNE SHAHID MD Pager [phone] documented in this encounter Miscellaneous Notes Consult Note - Daphne Shahid MD - 07/14/2017 11:46 AM EST Heart Failure Service Inpatient Consult Note Gregory Hoang Date of : 1945 Age: 72 y.o. Today's date: 07/14/17 PCP: Lovely Vicente MD MARINE DIESEL TECHNICIAN: None Place of Service: C451-A Reason for [...] SETUP performed by Manny Mcknight MD at [facility] OR ??? PRO CABG, ARTERIAL, SINGLE N/A 07/07/2017 @CABG, USING ARTERIAL GRAFT;SINGLE ARTERIAL GRAFT (WRVU 33.75) performed by Yuan Webber MD at [facility] OR ??? PRO CABG, ARTERY-VEIN, TWO N/A 07/07/2017 @CABG, TWO VENOUS GRAFTS & ARTERIAL GRAFT (WRVU 7.93) performed by Yuan Webber MD at [facility] OR ??? PRO COLONOSCOPY, REMV LESN, SNARE 01/16/2014 COLONOSCOPY, POLYPECTOMY, REMOVAL LESION BY SNARE performed by Nohemi Jaimes MD at [facility] ENDOSCOPY ??? PRO ENDOSCOPY W/VIDEO-ASST VEIN HARVEST, CABG Right 07/07/2017 ENDOSCOPIC HARVEST VEIN(S) FOR CABG (WRVU 0.31) performed by Yuan Webber MD at [facility] OR ??? PRO THYROIDECTOMY 03/28/2013 THYROIDECTOMY, TOTAL OR COMPLETE performed by Manny Mcknight MD at [facility] MAIN OR Outpt Meds: Current [...] following studies: EKG 07/14/17: NSR 75 bpm, AGRICULTURAL EXTENSION SPECIALIST anterior infarct, LAD CXR 07/11/17: FINDINGS: Sternotomy wires. The patient has been extubated, left chest tube removed, and Freedom-Suzi catheter removed since the 07/07/2017 study. Atelectasis [...] was discussed with Zehra. Jaden Kelley MD Network Operations Specialist Pager [phone] CARDIOLOGY ATTENDING NOTE Patient: Gregory Hoang Date [...] heart failure clinic. DAPHNE SHAHID MD Pager [phone] Plan of Care - Alden Chavarria, GEOMETRICIAN - 07/14/2017 11:35 AM EST Problem: Patient [...] Disposition: home with assist Alden Jorge Genikevin, GEOMETRICIAN Pager: [phone] Inpatient Physical Therapy Problem: Acute Rehab Services [...] sit/sit to supine -- Bed Mobility Goal, Kay Level supervision required -- Bed Mobility Goal, [...] - 3 days -- Gait Training Goal, Kay Level supervision required -- Gait Training Goal, [...] days -- Transfer Training Goal, Activity Type pmy-lf-hmtyq/qagra-fk-icw;pfj-ob-frehx/jshgj-fx-ygb;toilet -- Transfer Train Goal, Kay Level supervision required -- Transfer Training Goal, [...] keeping present for 2 days per family. Gun Profiler noted of frustrations, house keeping sent to room. Patient offered showered twice, refused. at bedside, frustrated that shower not complete, informed that patient had refused several times. requesting to see CUT OUT MARKER, paged sent to Martha, will come to bedside (middle of consult). not willing to wait, Martha notified that family had gone home. Encouraged to come for morning rounds a t 8am. Diabetes team at bedside - insulin adjustments made. Call cabello in reach. Continue to monitor. PLAN MOVING FORWARD: Ambulate, dressing changes BID, Please change drsg at 4am per Martha CUT OUT MARKER request. INDIVIDUALIZED FALL PREVENTION INTERVENTIONS: Patient-specific fall [...] levels on the lower side, 60ml of [place] juice given after a FS of 80. [...] Conf 07/13/17 0502 Interdisciplinary Rounds/Family Conf Participants foster care case manager;dietitian/nutrition services;nursing;occupational therapy;patient;pharmacy;physical therapy;physician Plan of [...] Anticipated Discharge Disposition: home with assist Pager: [phone] CLARISSA SEGAL, PT 07/12/2017 Physical Therapy Rehabilitation [...] to sit/sit to supine Bed Mobility Goal, Kay Level supervision required Bed Mobility Goal, Additional Goal adheres to psternal precautions for transfer Goal: Gait Training Goal Stand Alone Therapy Goal Outcome: Ongoing (Interventions Implemented as Appropriate) 07/12/17 1225 Gait Training Goal Gait Training Goal, Date Established 07/12/17 Gait Training Goal, Time to Achieve 2 - 3 days Gait Training Goal, Kay Level supervision required Gait Training Goal, Assist [...] 3 days Transfer Training Goal, Activity Type jrb-at-xpxsi/rhctp-xc-mit;jbj-js-oyevm/zllag-bl-ooe;toilet Transfer Train Goal, Kay Level supervision required Transfer Training Goal, Additional Goal adheres to sternal precautions during transfer Consult Note - Octavia Vaughn RN - 07/12/2017 10:50 AM EST [facility] CARDIAC REHABILITATION Gregory Hoang was seen today regarding participation in the outpatient Phase 2 Cardiac Rehabilitation at [facility]. The patient agrees to a referral [...] IV site, amio to other piv and DIPLOMA DENTAL ASSISTANT at bedside to help assess, IV removed. [...] staff, he stood and marched in place. [place] weak, wanting to sit back down. Remained [...] Health/Prescription Coverage: Primary Insurance: MEDICARE Secondary Insurance: [employer] [place] Prescription Coverage: yes Preferred Pharmacy: [facility] [place] Other: none Primary Care Provider: Lovely Vicente MD [phone] Patient/Caregiver Goals of Treatment:live and get my breath back Potential Needs for Transition of Care: Rehab/SNF: [facility] Home Health: NA DME: TBD Dialysis: na Community Resources: available Transportation: yes Other: none Anticipated Barriers to Discharge/Special Considerations: none Plan: Likely SNF Rehab before home A member of the Care Management team will continue to monitor progress, follow for continuity of care and assist with transition of care planning. ERLIN Weiss Pager: [phone] Consult Note - Katerin Azul RN - [...] management and to provide a review of assistant terminal manager diabetes care. Diabetes History: Gregory Hoang has [...] potential to d/c gtt and start CF. halfway diabetes care: Medications - Outpatient treatment regimen recommendations pending based on the hospital course. Monitoring - continue BG tid ac & hs Diet - low fat/low carb diet Exercise - weight-bearing exercise 30 min/day, as tolerated Thank you for allowing us to provide care for your patient W/E coverage, Dr. Jeane Tatum, pager [phone] Katerin Azul APRN Endocrinology Diabetes Management Pager [phone] Plan of Care - Walt Stephanie Wyatt [...] Webber MD - 07/07/2017 6:27 PM EST [facility] Operative Note Patient Name: Gregory Hoang : [id number] MR#: [id number] Case Date: 07/07/2017 Surgeon: Surgeon(s) and Role: * Yuan Webber MD - Primary * Michael Drake PA - Physician Pediatrics Hospitalist * Linda Flores PA - Physician Pediatrics Hospitalist Preoperative diagnosis: 3VD Postoperative diagnosis: CAD, severe [...] Operative Note Patient Name: Gregory Hoang : [id number] MR#: [id number] Case Date: 07/07/2017 Surgeon: Surgeon(s) and Role: * Yuan Webber MD - Primary * Michael Drake PA - Physician Pediatrics Hospitalist * Linda Flores PA - Physician Pediatrics Hospitalist Preoperative diagnosis: 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 In this [...] code status: Full Code Katty Hahn, MS3 [facility] Cardiology S1 (Pager [phone]) Plan of Care - Emelia Ibarra RN [...] hospital and ruled infor non-ST segment elevation OK. This almost certainly represents the residual of [...] at [facility] ENDOSCOPY ??? PRO THYROIDECTOMY 03/28/2013 THYROIDECTOMY, TOTAL OR COMPLETE performed by Manny Mcknight MD at [facility] MAIN OR Social History: Social [...] with other involved physicians Yuan Webber MD [phone] Med Student Progress Note - Katty Hahn [...] major CV events such as , stroke, OK, repeat revascularization compared to PCI). In this [...] or BiPAP - s/p lasix in the cathode builder, was net -1.5L - s/p plavix load, [...] FULL - Dispo: CVCC Katty Hahn, M3 [facility] Cardiology S1 (Pager [phone]) Plan of Care - Stephanie Godoy RN - 07/06/2017 5:00 AM EST Problem: Patient Care Overview Goal: Plan of Care Review 07/06/17 [id number] Coping/Psychosocial Plan Of Care Reviewed With patient;family [...] in urinal without difficulty. Lasix given in cathode builder, 1.4 L out at this time. Pt [...] Visit Cardiology Vitaliy Nobles MD [facility] CARDIOLOGY [place], [place] [address] (Wo rk) Scheduled Orders Name Type [...] are i n the results section. FLIGHT CREW TIME CLERK SCAN 07/15/2017 12:00 Res ults for this [...] Routine 07/08/2017 4:00 Results f or this ([facility]) AM EST procedure are i [...] Timed 07/06/2017 2:10 Results f or this ([facility]) PM EST procedure are i [...] section. TYPE AND SCREEN Routine 07/06/2017 12:00 ([facility]/SHANDA) PM EST APTT STAT 07/06/2017 [...] Routine 07/06/2017 8:10 Results f or this ([facility]) AM EST procedure are i [...] Routine 07/06/2017 2:20 Results f or this ([facility]) AM EST procedure are i [...] Routine 07/05/2017 8:20 Results f or this ([facility]) PM EST procedure are i [...] Timed 07/05/2017 4:55 Results f or this ([facility]) PM EST procedure are i [...] EXAMINATION: XR CHEST PA AND LATERAL ([facility]) CLINICAL HISTORY: CABG x 3 TECHNIQUE: PA [...] Teague APRN IMG DX ORDERABLES SCAN DOC: FLIGHT CREW TIME CLERK (07/15/2017 12:00 AM EST) Narrative 07/15/2017 12:00 [...] POC Glucose 186 65 - 199 [facility] mg/dL [facility] Comment: Supplemental ranges: <140 mg/dL before meals <180 mg/dL all other times of the day Specimen Anatomical Collection Method Collection Time Receive d Time (Source) Location / / Volume Laterality Blood specimen 07/14/2017 11:56 7 (specimen) AM EST 11:56 AM EST Yuan Webber MD POINT OF CARE TEST ORDERABLE S Performing Organization Address City/State/[place] [address] POCT Glucose (07/14/2017 7:52 AM EST) athologist Signature POC Glucose 126 65 - 199 [facility] mg/dL [facility] Comment: Supplemental ranges: <140 mg/dL before meals <180 mg/dL all other times of the day Specimen Anatomical Collection Method Collection Time Receive d Time (Source) Location / / Volume Laterality Blood specimen 07/14/2017 7:52 AM 017 7:52 (specimen) EST AM EST Yuan Webber MD POINT OF CARE TEST ORDERABLE S Performing Organization Address City/State/ZIP Code Phon e Number [address] (ABNORMAL) Prothrombin Time (07/14/2017 4:46 AM EST) athologist [facility] PT 26.4 (H) 11.8 - 14.0 [facility] LABORATORY INR 2.4 (H) 0.9 [...] Wilson APRN HEMATOLOGY ORDERABLES Performing Organization Address City/[facility]/[place] [address] Potassium (07/14/2017 4:46 AM EST) [facility] Potassium 4.3 3.5 - 5.0 [facility] mmol/L [facility] Comment: Please note: ??Patients with [...] STACIE CHEMISTRY ORDERABLES Performing Organization Address City/State/ZIP [facility] [address] POCT Glucose (07/14/2017 4:34 AM EST) athologist Signature POC Glucose 115 65 - 199 [place] mg/dL [facility] Comment: Supplemental ranges: <140 mg/dL before meals <180 mg/dL all other times of the day Specimen Anatomical Collection Method Collection Time Receive d Time (Source) Location / / Volume Laterality Blood specimen 07/14/2017 4:34 AM 017 4:34 (specimen) EST AM EST Yuan Webber MD POINT OF CARE TEST ORDERABLE S Performing Organization Address City/State/ZIP Code Phon e Number [address] POCT Glucose (07/13/2017 11:33 PM EST) athologist Signature POC Glucose 132 65 - 199 [place] mg/dL [facility] Comment: Supplemental ranges: <140 mg/dL before meals <180 mg/dL all other times of the day Specimen Anatomical Collection Method Collection Time Receive d Time (Source) Location / / Volume Laterality Blood specimen 07/13/2017 11:33 7 (specimen) PM EST 11:33 PM EST Yuan Webber MD POINT OF CARE TEST ORDERABLE S Performing Organization Address City/State/ZIP Code Phon e Number [address] POCT Glucose (07/13/2017 9:25 PM EST) athologist Signature POC Glucose 121 65 - 199 [place] mg/dL [facility] Comment: Supplemental ranges: <140 mg/dL before meals <180 mg/dL all other times of the day Specimen Anatomical Collection Method Collection Time Receive d Time (Source) Location / / Volume Laterality Blood specimen 07/13/2017 9:25 PM 017 9:25 (specimen) EST PM EST Yuan Webber MD POINT OF CARE TEST ORDERABLE S Performing Organization Address City/State/ZIP Code Phon e Number [address] POCT Glucose (07/13/2017 4:55 PM EST) athologist Signature POC Glucose 79 65 - 199 [place] mg/dL [facility] Comment: Supplemental ranges: <140 mg/dL before meals <180 mg/dL all other times of the day Specimen Anatomical Collection Method Collection Time Receive d Time (Source) Location / / Volume Laterality Blood specimen 07/13/2017 4:55 PM 017 4:55 (specimen) EST PM EST Yuan Webber MD POINT OF CARE TEST ORDERABLE S Performing Organization Address City/State/ZIP Code Phon e Number [address] POCT Glucose (07/13/2017 11:16 AM EST) P athologist Signature POC Glucose 163 65 - 199 [facility] mg/dL [facility] Comment: Supplemental ranges: <140 mg/dL before meals <180 mg/dL all other times of the day Specimen Anatomical Collection Method Collection Time Receive d Time (Source) Location / / Volume Laterality Blood specimen 07/13/2017 11:16 7 (specimen) AM EST 11:16 AM EST Yuan Webber MD POINT OF CARE TEST ORDERABLE S Performing Organization Address City/State/ZIP Code Phon e Number [address] POCT Glucose (07/13/2017 8:07 AM EST) P athologist Signature POC Glucose 96 65 - 199 [facility] mg/dL [facility] Comment: Supplemental ranges: <140 mg/dL before meals <180 mg/dL all other times of the day Specimen Anatomical Collection Method Collection Time Receive d Time (Source) Location / / Volume Laterality Blood specimen 07/13/2017 8:07 AM 017 8:07 (specimen) EST AM EST Yuan Webber MD POINT OF CARE TEST ORDERABLE S Performing Organization Address City/State/ZIP Code Phon e Number [address] (ABNORMAL) Prothrombin Time (07/13/2017 4:26 AM EST) P athologist Signature PT 20.8 (H) 11.8 - 14.0 [facility] LABORATORY INR 1.8 (H) 0.9 [...] Address City/State/ZIP [place] [address] (ABNORMAL) Basic Metabolic Panel (non-fasting) (07/13/2017 4:26 AM EST) athologist Signature Glucose Lvl 95 65 - 199 [facility] mg/dL [facility] Comment: Diabetes: >=200 mg/dL plus symp toms BUN 25 (H) 10 - 20 mg/dL [facility] Creatinine 1.19 0.80 - 1.50 mg/dL [facility] Sodium 143 135 - 145 mmol/L [facility] Potassium 3.7 3.5 - 5.0 mmol/L [facility] [...] Calcium 7.7 (L) 8.5 - 10.5 mg/dL [facility] Estimated GFR 60 >=60 [facility] Comment: The reported eGFR should be multiplied b y 1.2 for patients. The MDRD is not an appropriate measure o f renal function for patients with body mass extremes or in patients with acute kidney failure. http://Thrill/DHnkdep http://Thrill/DHMCnkf Specimen Anatomical Collection Method Collection Time Receive d Time (Source) Location / / Volume Laterality Blood specimen 07/13/2017 4:26 AM 017 4:46 (specimen) EST AM EST Resulting Agency Comment Spec In Lab Makayla Wilson APRN CHEMISTRY ORDERABLES Performing Organization Address City/[facility]/ZIP [facility] Phon e Number [address] POCT Glucose (07/13/2017 3:52 AM EST) P athologist Signature POC Glucose 93 65 - 199 [facility] Comment: Supplemental ranges: <140 mg/dL before meals <180 mg/dL all other times of the day Specimen Anatomical Collection Method Collection Time Receive d Time (Source) Location / / Volume Laterality Blood specimen 07/13/2017 3:52 AM 017 3:52 (specimen) EST AM EST Yuan Webber MD POINT OF CARE TEST ORDERABLE S Performing Organization Address City/[facility]/ZIP Code Phon e Number [address] POCT Glucose (07/13/2017 12:21 AM EST) athologist Signature POC Glucose 80 65 - 199 [facility] mg/dL [facility] Comment: Supplemental ranges: <140 mg/dL before meals <180 mg/dL all other times of the day Specimen Anatomical Collection Method Collection Time Receive d Time (Source) Location / / Volume Laterality Blood specimen 07/13/2017 12:21 7 (specimen) AM EST 12:21 AM EST Yuan Webber MD POINT OF CARE TEST ORDERABLE S Performing Organization Address City/State/ZIP Code Phon e Number [address] POCT Glucose (07/12/2017 8:22 PM EST) athologist Signature POC Glucose 119 65 - 199 [place] mg/dL [facility] Comment: Supplemental ranges: <140 mg/dL before meals <180 mg/dL all other times of the day Specimen Anatomical Collection Method Collection Time Receive d Time (Source) Location / / Volume Laterality Blood specimen 07/12/2017 8:22 PM 017 8:22 (specimen) EST PM EST Yuan Webber MD POINT OF CARE TEST ORDERABLE S Performing Organization Address City/State/ZIP Code Phon e Number [address] POCT Glucose (07/12/2017 4:02 PM EST) athologist Signature POC Glucose 114 65 - 199 [place] mg/dL [facility] Comment: Supplemental ranges: <140 mg/dL before meals <180 mg/dL all other times of the day Specimen Anatomical Collection Method Collection Time Receive d Time (Source) Location / / Volume Laterality Blood specimen 07/12/2017 4:02 PM 017 4:02 (specimen) EST PM EST Yuan Webber MD POINT OF CARE TEST ORDERABLE S Performing Organization Address City/State/ZIP Code Phon e Number [address] POCT Glucose (07/12/2017 11:28 AM EST) athologist Signature POC Glucose 164 65 - 199 [facility] mg/dL [facility] Comment: Supplemental ranges: <140 mg/dL before meals <180 mg/dL all other times of the day Specimen Anatomical Collection Method Collection Time Receive d Time (Source) Location / / Volume Laterality Blood specimen 07/12/2017 11:28 7 (specimen) AM EST 11:28 AM EST Yuan Webber MD POINT OF CARE TEST ORDERABLE S Performing Organization Address City/State/ZIP Code Phon e Number [address] POCT Glucose (07/12/2017 7:34 AM EST) athologist Signature POC Glucose 109 65 - 199 [facility] mg/[facility] Comment: Supplemental ranges: <140 mg/dL before meals <180 mg/dL all other times of the day Specimen Anatomical Collection Method Collection Time Receive d Time (Source) Location / / Volume Laterality Blood specimen 07/12/2017 7:34 AM 017 7:34 (specimen) EST AM EST Yuan Webber MD POINT OF CARE TEST ORDERABLE S Performing Organization Address City/State/ZIP [place] [address] (ABNORMAL) Basic Metabolic Panel (non-fasting) (07/12/2017 4:11 AM EST) athologist Signature Glucose Lvl 92 65 - 199 [facility] mg/dL [facility] Comment: Diabetes: >=200 mg/dL plus symp toms BUN 31 (H) 10 - 20 mg/dL [facility] Creatinine 1.23 0.80 - 1.50 mg/dL [facility] Sodium 145 135 - 145 mmol/L [facility] Potassium Not Perf 3.5 - 5.0 mmol/L [facility] Comment: Duplicate order [...] Gap Not Calculated 5 - 15 mmol/L [facility] Calcium 8.1 (L) 8.5 - 10.5 mg/dL [facility] Estimated GFR 58 (L) >=60 [facility] Comment: The reported eGFR should be multiplied b y 1.2 for patients. The MDRD is not an appropriate measure o f renal function for patients with body mass extremes or in patients with acute kidney failure. http://[employer].Fablic/DHnkdep http://[employer].Fablic/DHMCnkf Specimen Anatomical Collection Method Collection Time Receive d Time (Source) Location / / Volume Laterality Blood specimen 07/12/2017 4:11 AM 017 8:57 (specimen) EST AM EST Resulting Agency Comment Spec In Lab [facility] CHEMISTRY ORDERABLES Performing Organization Address [facility] Phon e Number [place] [phone] (ABNORMAL) Prothrombin Time (07/12/2017 4:11 AM EST) P athologist Signature PT 15.4 (H) 11.8 - 14.0 [facility] LABORATORY INR 1.2 (H) 0.9 [...] EST Resulting Agency Comment Spec In Lab [facility] HEMATOLOGY ORDERABLES Performing Organization Address [facility] [place] [address] Potassium (07/12/2017 4:11 AM EST) P athologist Signature Potassium 3.8 3.5 - 5.0 [facility] mmol/L [facility] Comment: Please note: ??Patients with [...] Organization Address City/State/ZIP Code Phon e Number [address] POCT Glucose (07/12/2017 4:10 AM EST) athologist Signature POC Glucose 90 65 - 199 [facility] mg/dL [facility] Comment: Supplemental ranges: <140 mg/dL before meals <180 mg/dL all other times of the day Specimen Anatomical Collection Method Collection Time Receive d Time (Source) Location / / Volume Laterality Blood specimen 07/12/2017 4:10 AM 017 4:10 (specimen) EST AM EST Yuan Webber MD POINT OF CARE TEST ORDERABLE S Performing Organization Address City/State/ZIP Code Phon e Number [address] POCT Glucose (07/11/2017 11:57 PM EST) athologist Signature POC Glucose 98 65 - 199 [facility] mg/dL [facility] Comment: Supplemental ranges: <140 mg/dL before meals <180 mg/dL all other times of the day Specimen Anatomical Collection Method Collection Time Receive d Time (Source) Location / / Volume Laterality Blood specimen 07/11/2017 11:57 7 (specimen) PM EST 11:57 PM EST Yuan Webber MD POINT OF CARE TEST ORDERABLE S Performing Organization Address City/State/ZIP Code Phon e Number [address] POCT Glucose (07/11/2017 8:32 PM EST) athologist Signature POC Glucose 146 65 - 199 [facility] mg/dL [facility] Comment: Supplemental ranges: <140 mg/dL before meals <180 mg/dL all other times of the day Specimen Anatomical Collection Method Collection Time Receive d Time (Source) Location / / Volume Laterality Blood specimen 07/11/2017 8:32 PM 017 8:32 (specimen) EST PM EST Yuan Webber MD POINT OF CARE TEST ORDERABLE S Performing Organization Address City/State/ZIP Code [place] [address] XR Chest PA & [...] e xtubated, left chest tube removed, and Freedom-Suzi catheter removed since the study. Atelectasis at [...] e xtubated, left chest tube removed, and Freedom-Suzi catheter removed since the study. Atelectasis at [...] (H) 65 - 199 [place] mg/dL [facility] Comment: Supplemental ranges: <140 mg/dL before meals <180 mg/dL all other times of the day Specimen Anatomical Collection Method Collection Time Receive d Time (Source) Location / / Volume Laterality Blood specimen 07/11/2017 4:05 PM 017 4:05 (specimen) EST PM EST Yuan Webber MD POINT OF CARE TEST ORDERABLE S Performing Organization Address City/State/ZIP Code Phon e Number [address] POCT Glucose (07/11/2017 11:55 AM EST) athologist Signature POC Glucose 176 65 - 199 [facility] mg/dL [facility] Comment: Supplemental ranges: <140 mg/dL before meals <180 mg/dL all other times of the day Specimen Anatomical Collection Method Collection Time Receive d Time (Source) Location / / Volume Laterality Blood specimen 07/11/2017 11:55 7 (specimen) AM EST 11:55 AM EST Authorizing Provider Result Mikaela Webber MD POINT OF CARE TEST ORDERABLE S Performing Organization Address City/State/[place] [address] POCT Glucose (07/11/2017 7:53 AM EST) athologist Signature POC Glucose 189 65 - 199 [place] mg/dL [facility] Comment: Supplemental ranges: <140 mg/dL before meals <180 mg/dL all other times of the day Specimen Anatomical Collection Method Collection Time Receive d Time (Source) Location / / Volume Laterality Blood specimen 07/11/2017 7:53 AM 017 7:53 (specimen) EST AM EST Authorizing Provider Result Mikaela Webber MD POINT OF CARE TEST ORDERABLE S Performing Organization Address City/State/[place] [address] POCT Glucose (07/11/2017 4:22 AM EST) athologist Signature POC Glucose 151 65 - 199 [place] mg/dL [facility] Comment: Supplemental ranges: <140 mg/dL before meals <180 mg/dL all other times of the day Specimen Anatomical Collection Method Collection Time Receive d Time (Source) Location / / Volume Laterality Blood specimen 07/11/2017 4:22 AM 017 4:22 (specimen) EST AM EST Yuan Webber MD POINT OF CARE TEST ORDERABLE S Performing Organization Address City/State/ZIP Code Phon e Number [address] Potassium (07/11/2017 2:20 AM EST) athologist Signature Potassium 4.5 3.5 - 5.0 [facility] mmol/L [facility] Comment: Please note: ??Patients with [...] Webber MD CHEMISTRY ORDERABLES Performing Organization Address City/[facility]/ZIP Code Phon e Number [address] POCT Glucose (07/11/2017 12:17 AM EST) athologist Signature POC Glucose 162 65 - 199 [place] mg/dL [facility] Comment: Supplemental ranges: <140 mg/dL before meals <180 mg/dL all other times of the day Specimen Anatomical Collection Method Collection Time Receive d Time (Source) Location / / Volume Laterality Blood specimen 07/11/2017 12:17 7 (specimen) AM EST 12:17 AM EST Yuan Webber MD POINT OF CARE TEST ORDERABLE S Performing Organization Address City/State/ZIP Code Phon e Number [address] POCT Glucose (07/10/2017 8:47 PM EST) athologist Signature POC Glucose 191 65 - 199 [place] mg/dL [facility] Comment: Supplemental ranges: <140 mg/dL before meals <180 mg/dL all other times of the day Specimen Anatomical Collection Method Collection Time Receive d Time (Source) Location / / Volume Laterality Blood specimen 07/10/2017 8:47 PM 017 8:47 (specimen) EST PM EST Yuan Webber MD POINT OF CARE TEST ORDERABLE S Performing Organization Address City/[facility]/ZIP Code Phon e Number [address] POCT Glucose (07/10/2017 4:06 PM EST) athologist Signature POC Glucose 131 65 - 199 [place] mg/dL [facility] Comment: Supplemental ranges: <140 mg/dL before meals <180 mg/dL all other times of the day Specimen Anatomical Collection Method Collection Time Receive d Time (Source) Location / / Volume Laterality Blood specimen 07/10/2017 4:06 PM 017 4:06 (specimen) EST PM EST Yuan Webber MD POINT OF CARE TEST ORDERABLE S Performing Organization Address City/State/ZIP Code Phon e Number [address] POCT Glucose (07/10/2017 3:08 PM EST) athologist Signature POC Glucose 151 65 - 199 [place] mg/dL [facility] Comment: Supplemental ranges: <140 mg/dL before meals <180 mg/dL all other times of the day Specimen Anatomical Collection Method Collection Time Receive d Time (Source) Location / / Volume Laterality Blood specimen 07/10/2017 3:08 PM 017 3:08 (specimen) EST PM EST Yuan Webber MD POINT OF CARE TEST ORDERABLE S Performing Organization Address City/State/ZIP Code Phon e Number [address] POCT Glucose (07/10/2017 2:25 PM EST) athologist Signature POC Glucose 146 65 - 199 [place] mg/dL [facility] Comment: Supplemental ranges: <140 mg/dL before meals <180 mg/dL all other times of the day Specimen Anatomical Collection Method Collection Time Receive d Time (Source) Location / / Volume Laterality Blood specimen 07/10/2017 2:25 PM 017 2:25 (specimen) EST PM EST Yuan Webber MD POINT OF CARE TEST ORDERABLE S Performing Organization Address City/State/ZIP Code Phon e Number [address] POCT Glucose (07/10/2017 1:23 PM EST) athologist Signature POC Glucose 166 65 - 199 [place] mg/dL [facility] Comment: Supplemental ranges: <140 mg/dL before meals <180 mg/dL all other times of the day Specimen Anatomical Collection Method Collection Time Receive d Time (Source) Location / / Volume Laterality Blood specimen 07/10/2017 1:23 PM 017 1:23 (specimen) EST PM EST Yuan Webber MD POINT OF CARE TEST ORDERABLE S Performing Organization Address City/State/ZIP Code Phon e Number [address] POCT Glucose (07/10/2017 11:52 AM EST) athologist Signature POC Glucose 157 65 - 199 [place] mg/dL [facility] Comment: Supplemental ranges: <140 mg/dL before meals <180 mg/dL all other times of the day Specimen Anatomical Collection Method Collection Time Receive d Time (Source) Location / / Volume Laterality Blood specimen 07/10/2017 11:52 7 (specimen) AM EST 11:52 AM EST Yuan Webber MD POINT OF CARE TEST ORDERABLE S Performing Organization Address City/State/[place] [address] POCT Glucose (07/10/2017 11:01 AM EST) athologist Signature POC Glucose 158 65 - 199 [place] mg/dL [facility] Comment: Supplemental ranges: <140 mg/dL before meals <180 mg/dL all other times of the day Specimen Anatomical Collection Method Collection Time Receive d Time (Source) Location / / Volume Laterality Blood specimen 07/10/2017 11:01 7 (specimen) AM EST 11:01 AM EST Yuan Webber MD POINT OF CARE TEST ORDERABLE S Performing Organization Address City/State/ZIP Code Phon e Number [address] POCT Glucose (07/10/2017 9:54 AM EST) athologist Signature POC Glucose 160 65 - 199 [place] mg/dL [facility] Comment: Supplemental ranges: <140 mg/dL before meals <180 mg/dL all other times of the day Specimen Anatomical Collection Method Collection Time Receive d Time (Source) Location / / Volume Laterality Blood specimen 07/10/2017 9:54 AM 017 9:54 (specimen) EST AM EST Yuan Webber MD POINT OF CARE TEST ORDERABLE S Performing Organization Address City/State/ZIP Code Phon e Number [address] POCT Glucose (07/10/2017 8:58 AM EST) athologist Signature POC Glucose 183 65 - 199 [place] mg/dL [facility] Comment: Supplemental ranges: <140 mg/dL before meals <180 mg/dL all other times of the day Specimen Anatomical Collection Method Collection Time Receive d Time (Source) Location / / Volume Laterality Blood specimen 07/10/2017 8:58 AM 017 8:58 (specimen) EST AM EST Yuan Webber MD POINT OF CARE TEST ORDERABLE S Performing Organization Address City/State/ZIP Code Phon e Number [address] POCT Glucose (07/10/2017 8:01 AM EST) athologist Signature POC Glucose 173 65 - 199 [facility] RYAN mg/dL [facility] Comment: Supplemental ranges: <140 mg/dL before meals <180 mg/dL all other times of the day Specimen Anatomical Collection Method Collection Time Receive d Time (Source) Location / / Volume Laterality Blood specimen 07/10/2017 8:01 AM 017 8:01 (specimen) EST AM EST Yuan Webber MD POINT OF CARE TEST ORDERABLE S Performing Organization Address City/State/ZIP Code Phon e Number [address] POCT Glucose (07/10/2017 7:05 AM EST) athologist Signature POC Glucose 166 65 - 199 [facility] RYAN mg/dL [facility] Comment: Supplemental ranges: <140 mg/dL before meals <180 mg/dL all other times of the day Specimen Anatomical Collection Method Collection Time Receive d Time (Source) Location / / Volume Laterality Blood specimen 07/10/2017 7:05 AM 017 7:05 (specimen) EST AM EST Yuan Webber MD POINT OF CARE TEST ORDERABLE S Performing Organization Address City/State/ZIP Code Phon e Number [address] POCT Glucose (07/10/2017 6:00 AM EST) athologist Signature POC Glucose 162 65 - 199 [place] mg/dL [facility] Comment: Supplemental ranges: <140 mg/dL before meals <180 mg/dL all other times of the day Specimen Anatomical Collection Method Collection Time Receive d Time (Source) Location / / Volume Laterality Blood specimen 07/10/2017 6:00 AM 017 6:00 (specimen) EST AM EST Yuan Webber MD POINT OF CARE TEST ORDERABLE S Performing Organization Address City/State/[place] [address] (ABNORMAL) Differential, Automated (07/10/2017 4:28 AM EST) Patholo gist Method Time Signature Neutrophils % 87.9 % [facility] LABORATORY Neutr Abs (ANC) 10.70 (H) 1.70 - [facility] 6.10 [facility] x10(3)/[facility] L LABORATORY Lymphocytes % 3.9 % [facility] LABORATORY Lymphocytes Abs 0.5 (L) 0.9 - 3.2 [facility] x10(3)/[facility] LABORATORY Monocytes % 7.0 % [facility] LABORATORY Monocyte Abs 0.8 0.3 - 0.9 [facility] x10(3)/[facility] LABORATORY Eosinophils % 0.3 % [facility] LABORATORY Eosinophils Abs 0.0 0.0 - 0.4 [facility] x10(3)/[facility] LABORATORY Basophils % 0.2 % [facility] LABORATORY Basophils Abs 0.0 0.0 - 0.1 [place] 139590(3)/[facility] LABORATORY Immature Gran % 0.70 % WHITE [...] Address City/State/ZIP [place] [address] (ABNORMAL) Hemogram (07/10/2017 4:28 AM EST) Analysis [facility] Signature WBC 12.2 (H) 4.0 - 9.5 [facility] x10(3)/[facility] LABORATORY RBC 3.31 (L) 4.58 - [facility] 5.54 [facility] x10(6)/[facility] LABORATORY Hemoglobin 9.8 (L) 13.7 - [facility] 16.5 gm/dL [facility] Hematocrit 30.0 (L) 40.5 - [facility] 48.5 % [facility] MCV 90.6 82.9 - [facility] 93.1 [facility] LABORATORY MCH 29.6 27.5 - [facility] 32.1 pg [facility] MCHC 32.7 32.0 - [facility] 35.7 gm/dL [facility] Platelets 135 (L) 145 - 357 [facility] x10(3)/[facility] LABORATORY RDWSD 50.8 (H) 36.0 - [facility] 45.0 [facility] LABORATORY RDWCV 15.4 (H) 11.4 - [facility] 13.8 % [facility] MPV 10.0 7.6 - 12.9 [facility] LABORATORY nRBC % Auto 0.0 % [facility] LABORATORY nRBC Abs Auto 0.000 0.000 - [facility] 0.000 [facility] x10(3)/[facility] LABORATORY Specimen Anatomical Collection Method Collection Time Receive d Time (Source) Location / / Volume Laterality Blood specimen 07/10/2017 4:28 AM 017 4:36 (specimen) EST AM EST Resulting Agency Comment Spec In Lab Yuan Webber MD HEMATOLOGY ORDERABLES Performing Organization Address City/State/ZIP [place] [address] (ABNORMAL) Basic Metabolic Panel (non-fasting) (07/10/2017 4:28 AM EST) P athologist Signature Glucose Lvl 178 65 - 199 [facility] mg/dL [facility] Comment: Diabetes: >=200 mg/dL plus symp toms BUN 20 10 - 20 mg/dL [facility] LABORATORY Creatinine 1.19 0.80 - 1.50 mg/dL [facility] Sodium 143 135 - 145 mmol/L [facility] Calcium 7.4 (L) 8.5 - 10.5 mg/dL [facility] LABORATORY Estimated GFR 60 >=60 [facility] Comment: The reported eGFR should be multiplied b y 1.2 for patients. The MDRD is not an appropriate measure o f renal function for patients with body mass extremes or in patients with acute kidney failure. http://[employer].Fablic/DHnkdep [email or web address]://Thrill/DHMCnkf Specimen Anatomical Collection Method Collection Time Receive d Time (Source) Location / / Volume Laterality Blood specimen 07/10/2017 4:28 AM 017 4:36 (specimen) EST AM EST Resulting Agency Comment Spec In Lab Yuan Webber MD CHEMISTRY ORDERABLES Performing Organization Address City/State/[place] [address] POCT Glucose (07/10/2017 4:26 AM EST) P athologist Signature POC Glucose 176 65 - 199 [facility] mg/dL [facility] Comment: Supplemental ranges: <140 mg/dL before meals <180 mg/dL all other times of the day Specimen Anatomical Collection Method Collection Time Receive d Time (Source) Location / / Volume Laterality Blood specimen 07/10/2017 4:26 AM 017 4:26 (specimen) EST AM EST Yuan Webber MD POINT OF CARE TEST ORDERABLE S Performing Organization Address City/State/[place] [address] (ABNORMAL) POCT Glucose (07/10/2017 3:06 AM EST) P athologist Signature POC Glucose 204 (H) 65 - 199 [facility] RYAN mg/dL [facility] Comment: Supplemental ranges: <140 mg/dL before meals <180 mg/dL all other times of the day Specimen Anatomical Collection Method Collection Time Receive d Time (Source) Location / / Volume Laterality Blood specimen 07/10/2017 3:06 AM 017 3:06 (specimen) EST AM EST Yuan Webber MD POINT OF CARE TEST ORDERABLE S Performing Organization Address City/State/ZIP Code Phon e Number [address] (ABNORMAL) POCT Glucose (07/10/2017 2:10 AM EST) athologist Signature POC Glucose 203 (H) 65 - 199 [facility] Comment: Supplemental ranges: <140 mg/dL before meals <180 mg/dL all other times of the day Specimen Anatomical Collection Method Collection Time Receive d Time (Source) Location / / Volume Laterality Blood specimen 07/10/2017 2:10 AM 017 2:10 (specimen) EST AM EST Yuan Webber MD POINT OF CARE TEST ORDERABLE S Performing Organization Address City/State/[place] [address] POCT Glucose (07/10/2017 1:09 AM EST) athologist Signature POC Glucose 196 65 - 199 [facility] RYAN mg/dL [facility] Comment: Supplemental ranges: <140 mg/dL before meals <180 mg/dL all other times of the day Specimen Anatomical Collection Method Collection Time Receive d Time (Source) Location / / Volume Laterality Blood specimen 07/10/2017 1:09 AM 017 1:09 (specimen) EST AM EST Yuan Webber MD POINT OF CARE TEST ORDERABLE S Performing Organization Address City/State/ZIP Code Phon e Number [address] POCT Glucose (07/10/2017 12:10 AM EST) athologist Signature POC Glucose 173 65 - 199 [place] mg/dL [facility] Comment: Supplemental ranges: <140 mg/dL before meals <180 mg/dL all other times of the day Specimen Anatomical Collection Method Collection Time Receive d Time (Source) Location / / Volume Laterality Blood specimen 07/10/2017 12:10 7 (specimen) AM EST 12:10 AM EST Yuan Webber MD POINT OF CARE TEST ORDERABLE S Performing Organization Address City/State/ZIP Code Phon e Number [address] POCT Glucose (07/09/2017 11:01 PM EST) athologist Signature POC Glucose 140 65 - 199 [facility] RYAN mg/dL [facility] Comment: Supplemental ranges: <140 mg/dL before meals <180 mg/dL all other times of the day Specimen Anatomical Collection Method Collection Time Receive d Time (Source) Location / / Volume Laterality Blood specimen 07/09/2017 11:01 7 (specimen) PM EST 11:01 PM EST Yuan Webber MD POINT OF CARE TEST ORDERABLE S Performing Organization Address City/State/ZIP Code Phon e Number [address] POCT Glucose (07/09/2017 10:05 PM EST) athologist Signature POC Glucose 144 65 - 199 [place] mg/dL [facility] Comment: Supplemental ranges: <140 mg/dL before meals <180 mg/dL all other times of the day Specimen Anatomical Collection Method Collection Time Receive d Time (Source) Location / / Volume Laterality Blood specimen 07/09/2017 10:05 7 (specimen) PM EST 10:05 PM EST Yuan Webber MD POINT OF CARE TEST ORDERABLE S Performing Organization Address City/State/[place] [address] POCT Glucose (07/09/2017 9:31 PM EST) athologist Signature POC Glucose 121 65 - 199 [place] mg/dL [facility] Comment: Supplemental ranges: <140 mg/dL before meals <180 mg/dL all other times of the day Specimen Anatomical Collection Method Collection Time Receive d Time (Source) Location / / Volume Laterality Blood specimen 07/09/2017 9:31 PM 017 9:31 (specimen) EST PM EST Yuan Webber MD POINT OF CARE TEST ORDERABLE S Performing Organization Address City/State/ZIP Code Phon e Number [address] POCT Glucose (07/09/2017 9:03 PM EST) athologist Signature POC Glucose 98 65 - 199 [place] mg/dL [facility] Comment: Supplemental ranges: <140 mg/dL before meals <180 mg/dL all other times of the day Specimen Anatomical Collection Method Collection Time Receive d Time (Source) Location / / Volume Laterality Blood specimen 07/09/2017 9:03 PM 017 9:03 (specimen) EST PM EST Yuan Webber MD POINT OF CARE TEST ORDERABLE S Performing Organization Address City/State/ZIP Code Phon e Number [address] POCT Glucose (07/09/2017 8:09 PM EST) athologist Signature POC Glucose 117 65 - 199 [facility] RYAN mg/dL [facility] Comment: Supplemental ranges: <140 mg/dL before meals <180 mg/dL all other times of the day Specimen Anatomical Collection Method Collection Time Receive d Time (Source) Location / / Volume Laterality Blood specimen 07/09/2017 8:09 PM 017 8:09 (specimen) EST PM EST Yuan Webber MD POINT OF CARE TEST ORDERABLE S Performing Organization Address City/State/ZIP Code Phon e Number [address] POCT Glucose (07/09/2017 5:40 PM EST) athologist Signature POC Glucose 155 65 - 199 [place] mg/dL [facility] Comment: Supplemental ranges: <140 mg/dL before meals <180 mg/dL all other times of the day Specimen Anatomical Collection Method Collection Time Receive d Time (Source) Location / / Volume Laterality Blood specimen 07/09/2017 5:40 PM 017 5:40 (specimen) EST PM EST Yuan Webber MD POINT OF CARE TEST ORDERABLE S Performing Organization Address City/State/ZIP Code Phon e Number [address] POCT Glucose (07/09/2017 4:24 PM EST) athologist Signature POC Glucose 164 65 - 199 [facility] RYAN mg/dL [facility] Comment: Supplemental ranges: <140 mg/dL before meals <180 mg/dL all other times of the day Specimen Anatomical Collection Method Collection Time Receive d Time (Source) Location / / Volume Laterality Blood specimen 07/09/2017 4:24 PM 017 4:24 (specimen) EST PM EST Yuan Webber MD POINT OF CARE TEST ORDERABLE S Performing Organization Address City/State/ZIP Code Phon e Number [address] POCT Glucose (07/09/2017 3:19 PM EST) athologist Signature POC Glucose 166 65 - 199 [place] mg/dL [facility] Comment: Supplemental ranges: <140 mg/dL before meals <180 mg/dL all other times of the day Specimen Anatomical Collection Method Collection Time Receive d Time (Source) Location / / Volume Laterality Blood specimen 07/09/2017 3:19 PM 017 3:19 (specimen) EST PM EST Yuan Webber MD POINT OF CARE TEST ORDERABLE S Performing Organization Address City/State/[place] [address] POCT Glucose (07/09/2017 2:26 PM EST) athologist Signature POC Glucose 179 65 - 199 [facility] mg/dL [facility] Comment: Supplemental ranges: <140 mg/dL before meals <180 mg/dL all other times of the day Specimen Anatomical Collection Method Collection Time Receive d Time (Source) Location / / Volume Laterality Blood specimen 07/09/2017 2:26 PM 017 2:26 (specimen) EST PM EST Yuan Webber MD POINT OF CARE TEST ORDERABLE S Performing Organization Address City/State/[place] [address] (ABNORMAL) POCT Glucose (07/09/2017 1:29 PM EST) athologist Signature POC Glucose 210 (H) 65 - 199 [facility] mg/dL [facility] Comment: Supplemental ranges: <140 mg/dL before meals <180 mg/dL all other times of the day Specimen Anatomical Collection Method Collection Time Receive d Time (Source) Location / / Volume Laterality Blood specimen 07/09/2017 1:29 PM 017 1:29 (specimen) EST PM EST Yuan Webber MD POINT OF CARE TEST ORDERABLE S Performing Organization Address City/State/[place] [address] POCT Glucose (07/09/2017 12:20 PM EST) athologist Signature POC Glucose 172 65 - 199 [facility] mg/dL [facility] Comment: Supplemental ranges: <140 mg/dL before meals <180 mg/dL all other times of the day Specimen Anatomical Collection Method Collection Time Receive d Time (Source) Location / / Volume Laterality Blood specimen 07/09/2017 12:20 7 (specimen) PM EST 12:20 PM EST Yuan Webber MD POINT OF CARE TEST ORDERABLE S Performing Organization Address City/State/[place] [address] POCT Glucose (07/09/2017 11:24 AM EST) athologist Signature POC Glucose 156 65 - 199 [facility] mg[facility]dL [facility] Comment: Supplemental ranges: <140 mg/dL before meals <180 mg/dL all other times of the day Specimen Anatomical Collection Method Collection Time Receive d Time (Source) Location / / Volume Laterality Blood specimen 07/09/2017 11:24 7 (specimen) AM EST 11:24 AM EST Yuan Webber MD POINT OF CARE TEST ORDERABLE S Performing Organization Address City/State/ZIP Code Phon e Number [address] POCT Glucose (07/09/2017 11:11 AM EST) P athologist Signature POC Glucose 172 65 - 199 [place] mg/dL [facility] Comment: Supplemental ranges: <140 mg/dL before meals <180 mg/dL all other times of the day Specimen Anatomical Collection Method Collection Time Receive d Time (Source) Location / / Volume Laterality Blood specimen 07/09/2017 11:11 7 (specimen) AM EST 11:11 AM EST Yuan Webber MD POINT OF CARE TEST ORDERABLE S Performing Organization Address City/State/ZIP Code Phon e Number [address] POCT Glucose (07/09/2017 10:08 AM EST) P athologist Signature POC Glucose 176 65 - 199 [place] mg/dL [facility] Comment: Supplemental ranges: <140 mg/dL before meals <180 mg/dL all other times of the day Specimen Anatomical Collection Method Collection Time Receive d Time (Source) Location / / Volume Laterality Blood specimen 07/09/2017 10:08 7 (specimen) AM EST 10:08 AM EST Yuan Webber MD POINT OF CARE TEST ORDERABLE S Performing Organization Address City/State/ZIP Code Phon e Number [address] POCT Glucose (07/09/2017 8:02 AM EST) P athologist Signature POC Glucose 178 65 - 199 [facility] RY[facility] mg/dL [facility] Comment: [...] Address City/State/Z[place] [address] (ABNORMAL) BLOOD GAS 2 ARTERIAL (07/09/2017 5:37 AM EST) Analysis Performed At Patho logist Time Signature pH Art 7.36 7.35 - [facility] 7.45 [facility] pCO2 Art 38 35 - 45 [facility] LABORATORY pO2 Art 79 (L) 85 - 104 [facility] LABORATORY HCO3 Art 20.9 20.0 - [facility] 26.0 [facility] mmol/[facility] LABORATORY BE Art -4.6 (L) -3.0 - 3.0 [facility] mmol/L [facility] Hgb Blood Gas 10.5 (L) 13.7 - [facility] 16.5 gm/dL [facility] O2HB Art 93.8 (L) 94.0 - [facility] 97.0 % [facility] COHB Art 0.3 % [facility] LABORATORY Comment: Nonsmokers: 0.5-1.5% COHB Smokers: Variable, but usually less than 10% Toxic: 20-30% COHB Lethal: Greater than 60% COHB METHB Art 0.6 <=1.5 % [facility] LABORATORY Na Whole Blood 141 [...] Whole Bld 175 65 - 199 mg/dL [facility] Comment: Diabetes: >=200 mg/dL plus symp toms. Lactate WB 1.0 0.5 - 2.2 mmol/L [facility] FIO2 Art 40 % [facility] PF Ratio Art 198 [facility] LABORATORY Specimen Anatomical Collection Method Collection Time Receive d Time (Source) Location / / Volume Laterality Blood specimen 07/09/2017 5:37 AM 017 5:37 (specimen) EST AM EST Yuan Webber MD CHEMISTRY ORDERABLES Performing Organization Address City/[facility]/ZIP Code Phon e Number [address] POCT Glucose (07/09/2017 3:27 AM EST) P athologist Signature POC Glucose 192 65 - 199 [facility] mg/dL [facility] Comment: Supplemental ranges: <140 mg/dL before meals <180 mg/dL all other times of the day Specimen Anatomical Collection Method Collection Time Receive d Time (Source) Location / / Volume Laterality Blood specimen 07/09/2017 3:27 AM 017 3:27 (specimen) EST AM EST Yuan Webber MD POINT OF CARE TEST ORDERABLE S Performing Organization Address City/[facility]/[place] [address] (ABNORMAL) Basic Metabolic Panel (non-fasting) (07/09/2017 2:30 AM EST) P athologist Signature Glucose Lvl 179 65 - 199 [facility] mg/dL [facility] Comment: Diabetes: >=200 mg/dL plus symp toms BUN 17 10 - 20 mg/dL [facility] LABORATORY Creatinine 1.34 0.80 - 1.50 mg/dL [facility] LABORATORY Sodium 144 135 - 145 mmol/L [facility] LABORATORY Potassium Not Perf 3.5 - 5.0 mmol/L [facility] Comment: Duplicate order [...] Calcium 7.1 (L) 8.5 - 10.5 mg/dL [facility] Comment: result [id number] Estimated GFR 53 (L) >=60 [facility] Comment: The reported eGFR should be multiplied b y 1.2 for patients. The MDRD is not an appropriate measure o f renal function for patients with body mass extremes or in patients with acute kidney failure. http://Thrill/DHnkdep http://Thrill/DHMCnkf Specimen Anatomical Collection Method Collection Time Receive d Time (Source) Location / / Volume Laterality Blood specimen Venous Draw / 07/09/2017 2:30 AM 2016 2:42 (specimen) Unknown EST AM EST Resulting Agency Comment Spec In Lab Yuan Webber MD CHEMISTRY ORDERABLES Performing Organization Address City/State/Z[place] [address] (ABNORMAL) Potassium (07/09/2017 2:30 AM EST) P athologist Signature Potassium 5.1 (H) 3.5 - 5.0 [facility] mmol/L [facility] Comment: Please note: ??Patients with [...] Webber MD CHEMISTRY ORDERABLES Performing Organization Address City/[facility]/ZIP [place] [address] (ABNORMAL) Hemogram (07/09/2017 2:30 AM EST) Analysis Performed At Patho logist Time Signature WBC 12.5 (H) 4.0 - 9.5 [facility] x10(3)/[facility] LABORATORY RBC 3.38 (L) 4.58 - [facility] 5.54 [facility] x10(6)/[facility] LABORATORY Hemoglobin 10.1 (L) 13.7 - [facility] 16.5 gm/dL [facility] LABORATORY Hematocrit 30.3 (L) 40.5 - [facility] 48.5 % [facility] LABORATORY MCV 89.6 82.9 - [facility] 93.1 [facility] LABORATORY MCH 29.9 27.5 - [place] 32.1 pg [facility] LABORATORY MCHC 33.3 32.0 - [place] 35.7 gm/dL [facility] LABORATORY Platelets 127 (L) 145 - 357 [facility] x10(3)/[facility] LABORATORY RDWSD 49.3 (H) 36.0 - [facility] RYAN 45.0 [facility] LABORATORY RDWCV 15.2 (H) 11.4 - [facility] RYAN 13.8 % [facility] LABORATORY MPV 9.9 7.6 - 12.9 [facility] nRBC % Auto 0.0 % [facility] LABORATORY nRBC Abs Auto 0.000 0.000 - [facility] RYAN 0.000 [facility] x10(3)/[facility] LABORATORY Specimen Anatomical Collection Method Collection Time Receive d Time (Source) Location / / Volume Laterality Blood specimen 07/09/2017 2:30 AM 017 2:41 (specimen) EST AM EST Resulting Agency Comment Spec In Lab Yuan Webber MD HEMATOLOGY ORDERABLES Performing Organization Address City/State/[place] [address] POCT Glucose (07/09/2017 2:10 AM EST) athologist Signature POC Glucose 169 65 - 199 [place] mg/dL [facility] LABORATORY Comment: Supplemental ranges: <140 mg/dL before meals <180 mg/dL all other times of the day Specimen Anatomical Collection Method Collection Time Receive d Time (Source) Location / / Volume Laterality Blood specimen 07/09/2017 2:10 AM 017 2:10 (specimen) EST AM EST Yuan Webber MD POINT OF CARE TEST ORDERABLE S Performing Organization Address City/[facility]/ZIP Code Phon e Number [address] POCT Glucose (07/09/2017 1:01 AM EST) athologist Signature POC Glucose 173 65 - 199 [place] mg/dL [facility] LABORATORY Comment: Supplemental ranges: <140 mg/dL before meals <180 mg/dL all other times of the day Specimen Anatomical Collection Method Collection Time Receive d Time (Source) Location / / Volume Laterality Blood specimen 07/09/2017 1:01 AM 017 1:01 (specimen) EST AM EST Yuan Webber MD POINT OF CARE TEST ORDERABLE S Performing Organization Address City/[facility]/[place] [address] Blood culture (07/09/2017 12:40 AM EST) [facility] gist Method Time Signature Blood Culture No growth [facility] at 5 days. [facility] LABORATORY Specimen Anatomical Collection Method Collection Time Receive d Time (Source) Location / / Volume Laterality Blood specimen STRUCTURE OF RIGHT 07/09/2017 12:40 3:58 (specimen) UPPER LIMB / AM EST AM EST Unknown Resulting Agency Comment Spec In Lab Yuan Webber MD MICROBIOLOGY - BLOOD ORDERAB LES Performing Organization Address City/State/[place] [address] Blood culture (07/09/2017 12:30 AM EST) [facility] Method Time Signature Blood Culture No growth [facility] DAVIS at 5 days. [facility] LABORATORY Specimen Anatomical Collection Method Collection Time Receive d Time (Source) Location / / Volume Laterality Blood specimen STRUCTURE OF LEFT 07/09/2017 12:30 1211/2016 3:59 (specimen) UPPER LIMB / AM EST AM EST Unknown Resulting Agency Comment Spec In Lab Yuan Webber MD MICROBIOLOGY - BLOOD ORDERAB LES Performing Organization Address City/[facility]/ZIP [facility] [place] [place] [address] (ABNORMAL) Urinalysis Microscopic Exam [...] 17 (H) 0 - 2 /LPF [facility] Gran Cast UA 1 (H) <=0 /LPF [facility] LABORATORY Uric Ac Bianca Rare (A) None /HPF [facility] LAB[facility] Specimen (Source) Anatomical Collection Method Collection Time Re ceived Time Location / / Volume Laterality Urine specimen 07/09/2017 12:05 07/09/ 7 obtained via AM EST 12:39 AM EST indwelling urinary catheter (specimen) Resulting Agency Comment Spec In Lab Yuan Webber MD URINE ORDERABLES Performing Organization Address City/[facility] [place] [address] (ABNORMAL) Urinalysis with reflex Culture (07/09/2017 12:05 AM EST) Itandi Method Time Signature Glucose UA Negative Negative [facility] mg/dL [facility] LABORATORY Protein UA 30 (A) Negative [facility] mg/dL [facility] LABOR[facility]ORY Bilirubin UA Negative Negative [facility] mg/dL [facility] LABORATORY Comment: Clinical correlation required for positi ve Urine Bilirubin results as false positive may occur with some drugs and d rug related products. If a false positive is suspected a serum total bili yeager should be considered if clinically indicated. Urobilinogen UA Normal Normal mg/dL [facility] LABORATORY pH UA 5.0 5.0 - 8.0 [facility] LABORATORY Blood UA Moderate (A) Negative mg/dL [facility] LABORATORY Ketones UA Negative Negative mg/dL [facility] LABORATORY Nitrite UA Negative Negative [facility] LABORATORY Leukocytes UA Negative Negative [facility] LABORATORY Appearance UA Hazy (A) Clear [facility] LABORATORY Spec [place] UA 1.025 1.002 - 1.030 [facility] LABORATORY Color UA Yellow Yellow [facility] LABORATORY Culture Reflexed No [facility] LABORATORY Specimen (Source) Anatomical Collection Method Collection Time Re ceived Time Location / / Volume Laterality Urine specimen 07/09/2017 12:05 7 obtained via AM EST 12:39 AM EST indwelling urinary catheter (specimen) Resulting Agency Comment Spec In Lab Yuan Webber MD URINE ORDERABLES Performing Organization Address City/[facility]/ZIP Code Phon e Number [address] POCT Glucose (07/08/2017 11:01 PM EST) athologist Signature POC Glucose 191 65 - 199 [facility] mg/dL [facility] LABORATORY Comment: Supplemental ranges: <140 mg/dL before meals <180 mg/dL all other times of the day Specimen Anatomical Collection Method Collection Time Receive d Time (Source) Location / / Volume Laterality Blood specimen 07/08/2017 11:01 7 (specimen) PM EST 11:01 PM EST Yuan Webber MD POINT OF CARE TEST ORDERABLE S Performing Organization Address City/[facility]/ZIP Code Phon e Number [address] POCT Glucose (07/08/2017 10:04 PM EST) athologist Signature POC Glucose 198 65 - 199 [facility] mg/[facility] Comment: Supplemental ranges: <140 mg/dL before meals <180 mg/dL all other times of the day Specimen Anatomical Collection Method Collection Time Receive d Time (Source) Location / / Volume Laterality Blood specimen 07/08/2017 10:04 7 (specimen) PM EST 10:04 PM EST Yuan Webber MD POINT OF CARE TEST ORDERABLE S Performing Organization Address City/State/[place] [address] Prepare Albumin 5% in [...] [facility] ORDERABLES Performing Organization Address City/[facility]/[place] [address] POCT Glucose (07/08/2017 8:28 PM EST) P athologist Signature POC Glucose 195 65 - 199 [facility] mg/dL [facility] Comment: Supplemental ranges: <140 mg/dL before meals <180 mg/dL all other times of the day Specimen Anatomical Collection Method Collection Time Receive d Time (Source) Location / / Volume Laterality Blood specimen 07/08/2017 8:28 PM 017 8:28 (specimen) EST PM EST Yuan Webber MD POINT OF CARE TEST ORDERABLE S Performing Organization Address City/[facility]/[place] [address] (ABNORMAL) POCT Glucose (07/08/2017 7:13 PM EST) P athologist Signature POC Glucose 220 (H) 65 - 199 [facility] mg/dL [facility] LABORATORY Comment: Supplemental ranges: <140 mg/dL before meals <180 mg/dL all other times of the day Specimen Anatomical Collection Method Collection Time Receive d Time (Source) Location / / Volume Laterality Blood specimen 07/08/2017 7:13 PM 017 7:13 (specimen) EST PM EST Yuan Webber MD POINT OF CARE TEST ORDERABLE S Performing Organization Address City/State/[place] [address] POCT Glucose (07/08/2017 5:04 PM EST) P athologist Signature POC Glucose 147 65 - 199 [facility] mg/dL [facility]OR[facility] Comment: Supplemental ranges: <140 mg/dL before meals <180 mg/dL all other times of the day Specimen Anatomical Collection Method Collection Time Receive d Time (Source) Location / / Volume Laterality Blood specimen 07/08/2017 5:04 PM 017 5:04 (specimen) EST PM EST Yuan Webber MD POINT OF CARE TEST ORDERABLE S Performing Organization Address City/State/[place] [address] (ABNORMAL) BLOOD GAS 2 ARTERIAL (07/08/2017 4:13 PM EST) Analysis Performed At Patho logist Time Signature pH Art 7.38 7.35 - [facility] 7.45 [facility] LABORATORY pCO2 Art 36 35 - 45 [facility] mmHg [facility]ORAT[facility] pO2 Art 91 85 - 104 [facility] LABORATORY HCO3 Art 20.9 20.0 - [facility] 26.0 [facility] mmol/L [facility] LABORATORY BE Art -4.2 (L) -3.0 - 3.0 [facility] mmol/L [facility] LABORATORY Hgb Blood Gas 11.7 (L) 13.7 - [facility] 16.5 gm/dL [facility] LABORATORY O2HB Art 95.1 94.0 - [facility] 97.0 % [facility] LABORATORY COHB Art 0.6 % [facility] LABORATORY Comment: Nonsmokers: 0.5-1.5% COHB Smokers: Variable, but usually less than 10% Toxic: 20-30% COHB Lethal: Greater than 60% COHB METHB Art 0.6 <=1.5 % [facility] LABORATORY Na Whole Blood 139 [...] Whole Bld 155 65 - 199 mg/dL [facility] LABORATORY Comment: Diabetes: >=200 mg/dL plus symp toms. Lactate WB 1.4 0.5 - 2.2 mmol/L [facility] LABORATORY FIO2 Art 40 % [facility] LABORATORY PF Ratio Art 228 [facility] LABORATORY Specimen Anatomical Collection Method Collection Time Receive d Time (Source) Location / / Volume Laterality Blood specimen 07/08/2017 4:13 PM 017 4:13 (specimen) EST PM EST Yuan Webber MD CHEMISTRY ORDERABLES Performing Organization Address City/State/ZIP Code Phon e Number [address] POCT Glucose (07/08/2017 4:01 PM EST) P athologist Signature POC Glucose 148 65 - 199 [facility] mg/dL [facility] LABOR[facility] Comment: Supplemental ranges: <140 mg/dL before meals <180 mg/dL all other times of the day Specimen Anatomical Collection Method Collection Time Receive d Time (Source) Location / / Volume Laterality Blood specimen 07/08/2017 4:01 PM 017 4:01 (specimen) EST PM EST Yuan Webber MD POINT OF CARE TEST ORDERABLE S Performing Organization Address City/State/[place] [address] POCT Glucose (07/08/2017 3:21 PM EST) athologist Signature POC Glucose 118 65 - 199 [place] [place] mg/dL [facility] LABORATORY Comment: Supplemental ranges: <140 mg/dL before meals <180 mg/dL all other times of the day Specimen Anatomical Collection Method Collection Time Receive d Time (Source) Location / / Volume Laterality Blood specimen 07/08/2017 3:21 PM 017 3:21 (specimen) EST PM EST Yuan Webber MD POINT OF CARE TEST ORDERABLE S Performing Organization Address City/State/ZIP Code Phon e Number [address] POCT Glucose (07/08/2017 2:01 PM EST) athologist Signature POC Glucose 129 65 - 199 [place] mg/dL [facility]OR[facility]ORY Comment: Supplemental ranges: <140 mg/dL before meals <180 mg/dL all other times of the day Specimen Anatomical Collection Method Collection Time Receive d Time (Source) Location / / Volume Laterality Blood specimen 07/08/2017 2:01 PM 017 2:01 (specimen) EST PM EST Yuan Webber MD POINT OF CARE TEST ORDERABLE S Performing Organization Address City/State/[place] [address] POCT Glucose (07/08/2017 11:53 AM EST) athologist Signature POC Glucose 156 65 - 199 [place] mg/dL [facility]OR[facility] Comment: Supplemental ranges: <140 mg/dL before meals <180 mg/dL all other times of the day Specimen Anatomical Collection Method Collection Time Receive d Time (Source) Location / / Volume Laterality Blood specimen 07/08/2017 11:53 7 (specimen) AM EST 11:53 AM EST Yuan Webber MD POINT OF CARE TEST ORDERABLE S Performing Organization Address City/State/[place] [address] POCT Glucose (07/08/2017 11:04 AM EST) athologist Signature POC Glucose 181 65 - 199 [facility] mg/dL [facility] LABOR[facility] Comment: Supplemental ranges: <140 mg/dL before meals <180 mg/dL all other times of the day Specimen Anatomical Collection Method Collection Time Receive d Time (Source) Location / / Volume Laterality Blood specimen 07/08/2017 11:04 7 (specimen) AM EST 11:04 AM EST Yuan Webber MD POINT OF CARE TEST ORDERABLE S Performing Organization Address City/[facility]/[place] [address] (ABNORMAL) POCT Glucose (07/08/2017 9:24 AM EST) athologist Signature POC Glucose 203 (H) 65 - 199 [facility] mg/dL [facility] Comment: Supplemental ranges: <140 mg/dL before meals <180 mg/dL all other times of the day Specimen Anatomical Collection Method Collection Time Receive d Time (Source) Location / / Volume Laterality Blood specimen 07/08/2017 9:24 AM 017 9:24 (specimen) EST AM EST Yuan Webber MD POINT OF CARE TEST ORDERABLE S Performing Organization Address City/[facility]/[place] [address] APTT (07/08/2017 8:40 AM EST) athologist Signature PTT 33 25 - 35 sec [facility] LABORATORY Comment: The recommended therapeutic range for fu ll dose, unfractionated heparin at [facility] is 80 ? 114 seconds. [...] Address City/State/Z[place] [address] (ABNORMAL) Prothrombin Time (07/08/2017 8:40 AM EST) athologist Signature PT 15.6 (H) 11.8 - 14.0 [facility] LABORATORY INR 1.3 (H) 0.9 [...] Organization Address City/State/[place] [address] (ABNORMAL) POCT Glucose (07/08/2017 7:38 AM EST) athologist Signature POC Glucose 232 (H) 65 - 199 [facility] mg/dL [facility] Comment: Supplemental ranges: <140 mg/dL before meals <180 mg/dL all other times of the day Specimen Anatomical Collection Method Collection Time Receive d Time (Source) Location / / Volume Laterality Blood specimen 07/08/2017 7:38 AM 017 7:38 (specimen) EST AM EST Yuan Webber MD POINT OF CARE TEST ORDERABLE S Performing Organization Address City/State/ZIP Code Phon e Number [address] (ABNORMAL) POCT Glucose (07/08/2017 7:07 AM EST) athologist Signature POC Glucose 234 (H) 65 - 199 [facility] mg/dL [facility] Comment: Supplemental ranges: <140 mg/dL before meals <180 mg/dL all other times of the day Specimen Anatomical Collection Method Collection Time Receive d Time (Source) Location / / Volume Laterality Blood specimen 07/08/2017 7:07 AM 017 7:07 (specimen) EST AM EST Yuan Webber MD POINT OF CARE TEST ORDERABLE S Performing Organization Address City/[facility]/[place] [address] (ABNORMAL) POCT Glucose (07/08/2017 6:04 AM EST) P athologist Signature POC Glucose 225 (H) 65 - 199 [place] mg/dL [facility] Comment: Supplemental ranges: <140 mg/dL before meals <180 mg/dL all other times of the day Specimen Anatomical Collection Method Collection Time Receive d Time (Source) Location / / Volume Laterality Blood specimen 07/08/2017 6:04 AM 017 6:04 (specimen) EST AM EST Yuan Webber MD POINT OF CARE TEST ORDERABLE S Performing Organization Address City/[facility]/[place] [address] (ABNORMAL) POCT Glucose (07/08/2017 5:31 AM EST) P athologist Signature POC Glucose 216 (H) 65 - 199 [place] mg/dL [facility] Comment: Supplemental ranges: <140 mg/dL before meals <180 mg/dL all other times of the day Specimen Anatomical Collection Method Collection Time Receive d Time (Source) Location / / Volume Laterality Blood specimen 07/08/2017 5:31 AM 017 5:31 (specimen) EST AM EST Yuan Webber MD POINT OF CARE TEST ORDERABLE S Performing Organization Address City/State/ZIP Code Phon e Number [address] (ABNORMAL) POCT Glucose (07/08/2017 4:52 AM EST) P athologist Signature POC Glucose 257 (H) 65 - 199 [facility] mg/dL [facility] Comment: Supplemental ranges: <140 mg/dL before meals <180 mg/dL all other times of the day Specimen Anatomical Collection Method Collection Time Receive d Time (Source) Location / / Volume Laterality Blood specimen 07/08/2017 4:52 AM 017 4:52 (specimen) EST AM EST Daphne Shahid MD POINT OF CARE TEST ORDERABLE S Performing Organization Address City/State/ZIP [place] [address] (ABNORMAL) BLOOD GAS 2 ARTERIAL (07/08/2017 4:04 AM EST) Analysis Performed At Patho logis Time Signature pH Art 7.30 (L) 7.35 - [facility] 7.45 [facility] LABORATORY pCO2 Art 41 35 - 45 [facility] LABORATORY pO2 Art 83 (L) 85 - 104 [facility] LABORATORY HCO3 Art 19.6 (L) 20.0 - [facility] 26.0 [facility] mmol/[facility] LABORATORY BE Art -6.8 (L) -3.0 - 3.0 [facility] mmol/L [facility] LABORATORY Hgb Blood Gas 12.2 (L) 13.7 - [facility] 16.5 gm/dL [facility] O2HB Art 93.5 (L) 94.0 - [facility] 97.0 % [facility]ORAT[facility] COHB Art 0.4 % [facility] LABORATORY Comment: Nonsmokers: 0.5-1.5% COHB Smokers: Variable, but usually less than 10% Toxic: 20-30% COHB Lethal: Greater than 60% COHB METHB Art 0.8 <=1.5 % [facility] LABORATORY Na [...] Bld 274 (H) 65 - 199 mg/dL [facility] LABORATORY Comment: Diabetes: >=200 mg/dL plus symp toms. Lactate WB 4.4 (Critical) 0.5 - 2.2 mmol/L [facility] LABORATORY Comment: Noted by instrument repair technician. FIO2 Art 40 % [facility] LABORATORY PF Ratio Art 208 [facility] LABORATORY Specimen Anatomical Collection Method Collection Time Receive d Time (Source) Location / / Volume Laterality Blood specimen 07/08/2017 4:04 AM 017 4:04 (specimen) EST AM EST Daphne Shahid MD CHEMISTRY ORDERABLES Performing Organization Address City/[facility]/[place] [address] Scan, Peripheral Blood (07/08/2017 [...] Webber MD HEMATOLOGY ORDERABLES Performing Organization Address City/[facility]/[place] [address] (ABNORMAL) Differential, Automated (07/08/2017 4:00 AM EST) Patholo gist Method Time Signature Neutrophils % 85.4 % [facility] LABORATORY Neutr Abs (ANC) 16.07 (H) 1.70 - [facility] 6.10 [facility] x10(3)/[facility] L LABORATORY Lymphocytes % 3.5 % [facility] LABORATORY Lymphocytes Abs 0.6 (L) 0.9 - 3.2 [facility] x10(3)/[facility] LABORATORY Monocytes % 10.4 % [facility] LABORATORY Monocyte Abs 2.0 (H) 0.3 - 0.9 [facility] x10(3)/[facility] LABORATORY Eosinophils % 0.0 % [facility] LABORATORY Eosinophils Abs 0.0 0.0 - 0.4 [facility] x10(3)/[facility] LABORATORY Basophils % 0.1 % [facility] LABORATORY Basophils Abs 0.0 0.0 - 0.1 [facility] x10(3)/[facility] LABORATORY Immature Gran % 0.60 % WHITE [...] Gran Abs 0.12 (H) 0.00 - 0.04 x10(3)/[facility] LABORATORY Specimen Anatomical Collection Method Collection Time Receive d Time (Source) Location / / Volume Laterality Blood specimen 07/08/2017 4:00 AM 017 4:09 (specimen) EST AM EST Resulting Agency Comment Spec In Lab Yuan Webber MD HEMATOLOGY ORDERABLES Performing Organization Address City/State/ZIP [place] [address] (ABNORMAL) Hemogram (07/08/2017 4:00 AM EST) Analysis Performed At Patho logist Time Signature WBC 18.8 (H) 4.0 - 9.5 [facility] x10(3)/[facility] LABORATORY RBC 4.00 (L) 4.58 - [facility] 5.54 [facility] x10(6)/[facility] LABORATORY Hemoglobin 11.9 (L) 13.7 - [facility] 16.5 gm/dL [facility] Hematocrit 35.9 (L) 40.5 - [facility] 48.5 % [facility] MCV 89.8 82.9 - [facility] 93.1 fL [facility] MCH 29.8 27.5 - [facility] 32.1 pg [facility] MCHC 33.1 32.0 - [place] [facility] 35.7 gm/dL [facility] LABORAT[facility] Platelets 232 145 - 357 [facility] x10(3)/[facility] LABORATORY RDWSD 47.6 (H) 36.0 - [facility] 45.0 [facility] LABORATORY RDWCV 14.5 (H) 11.4 - [facility] 13.8 % [facility] LABORATORY MPV 9.5 7.6 - 12.9 [facility] LABORATORY nRBC % Auto 0.0 % [facility] LABORATORY nRBC Abs Auto 0.000 0.000 - [facility] 0.000 [facility] x10(3)/[facility] LABORATORY Specimen Anatomical Collection Method Collection Time Receive d Time (Source) Location / / Volume Laterality Blood specimen 07/08/2017 4:00 AM 017 4:09 (specimen) EST AM EST Resulting Agency Comment Spec In Lab Yuan Webber MD HEMATOLOGY ORDERABLES Performing Organization Address City/State/ZIP [place] [address] (ABNORMAL) Electrolytes panel (07/08/2017 4:00 AM EST) P athologist Signature Sodium 139 135 - 145 [facility] mmol/L [facility] LABORATORY Potassium 4.7 3.5 - 5.0 [facility] mmol/L [facility] LABORATORY Comment: result [id number] Please note: [...] Webber MD CHEMISTRY ORDERABLES Performing Organization Address City/[facility]/ZIP Code Phon e Number [address] (ABNORMAL) Cardiac Enzymes (LEB/CGP) (07/08/2017 4:00 AM EST) P athologist Signature Troponin-T 1.88 (H) 0.00 - [facility] 0.00 ng/mL [facility] Comment: The 99th percentile for Troponin T is le ss than 0.01 ng/mL, any detectable cTnT concentration using this assay should be considered elevated. According to the third universal definit ion of myocardial infarction the following criteria with a clinical prese ntation consistent with acute myocardial ischemia meets the diagnosis for a myocardial infarction (OK). Detection of a rise and/or fall of [...] additional sample may be indicated. Reference: Third [place] Definition of Myocardial Infarction. Journal of the [place] 2012;60:1581-98 CK, Total 413 (H) 0 - 200 unit/L [facility] Comment: result rechecked-JLK Specimen Anatomical Collection Method Collection Time Receive d Time (Source) Location / / Volume Laterality Blood specimen 07/08/2017 4:00 AM 017 4:09 (specimen) EST AM EST Resulting Agency Comment Spec In Lab Yuan Webber MD CHEMISTRY ORDERABLES Performing Organization Address City/[facility]/[place] [address] (ABNORMAL) Glucose, fasting (07/08/2017 4:00 AM EST) P athologist Signature Glucose 287 (H) 65 - 99 [facility] Fasting mg/dL [facility] Comment: ?Fasting* Glucose Interpretive C [...] of Diabetes Mellitus, Position Statement from the [place]. ??Diabete s Care, Volume 33, Supplement 1, Jul 2009 Specimen Anatomical Collection Method Collection Time Receive d Time (Source) Location / / Volume Laterality Blood specimen 07/08/2017 4:00 AM 017 4:09 (specimen) EST AM EST Resulting Agency Comment Spec In Lab Yuan Webber MD CHEMISTRY ORDERABLES Performing Organization Address City/State/[place] [address] (ABNORMAL) Creatinine (07/08/2017 4:00 AM EST) Analysis Performed At Patho logist Time Signature Creatinine 1.55 (H) 0.80 - [facility] 1.50 mg/dL [facility] Estimated GFR 44 (L) >=60 [facility] Comment: The reported eGFR should be multiplied b y 1.2 for patients. The MDRD is not an appropriate measure o f renal function for patients with body mass extremes or in patients with acute kidney failure. http://[employer].Fablic/DHnkdep http://Thrill/DHMCnkf Specimen Anatomical Collection Method Collection Time Receive d Time (Source) Location / / Volume Laterality Blood specimen 07/08/2017 4:00 AM 017 4:09 (specimen) EST AM EST Resulting Agency Comment Spec In Lab Yuan Webber MD CHEMISTRY ORDERABLES Performing Organization Address City/[facility]/ZIP Code Phon e Number [address] BUN (07/08/2017 4:00 AM EST) P athologist Signature BUN 16 10 - 20 [facility] mg/dL [facility] Specimen Anatomical Collection Method Collection Time Receive d Time (Source) Location / / Volume Laterality Blood specimen 07/08/2017 4:00 AM 017 4:09 (specimen) EST AM EST Resulting Agency Comment Spec In Lab Yuan Webber MD CHEMISTRY ORDERABLES Performing Organization Address [facility] Phon e Number [address] (ABNORMAL) POCT Glucose (07/08/2017 3:00 AM EST) athologist Signature POC Glucose 273 (H) 65 - 199 [facility] mg/dL [facility] Comment: Supplemental ranges: <140 mg/dL before meals <180 mg/dL all other times of the day Specimen Anatomical Collection Method Collection Time Receive d Time (Source) Location / / Volume Laterality Blood specimen 07/08/2017 3:00 AM 017 3:00 (specimen) EST AM EST Daphne Shahid MD POINT OF CARE TEST ORDERABLE S Performing Organization Address [facility]/[place] [address] (ABNORMAL) POCT Glucose (07/08/2017 1:57 AM EST) athologist Signature POC Glucose 288 (H) 65 - 199 [facility] mg/dL [facility] Comment: Supplemental ranges: <140 mg/dL before meals <180 mg/dL all other times of the day Specimen Anatomical Collection Method Collection Time Receive d Time (Source) Location / / Volume Laterality Blood specimen 07/08/2017 1:57 AM 017 1:57 (specimen) EST AM EST Daphne Shahid MD POINT OF CARE TEST ORDERABLE S Performing Organization Address City/State/[place] [address] (ABNORMAL) POCT Glucose (07/08/2017 1:01 AM EST) athologist Signature POC Glucose 315 (H) 65 - 199 [facility] mg/dL [facility] Comment: Supplemental ranges: <140 mg/dL before meals <180 mg/dL all other times of the day Specimen Anatomical Collection Method Collection Time Receive d Time (Source) Location / / Volume Laterality Blood specimen 07/08/2017 1:01 AM 017 1:01 (specimen) EST AM EST Daphne Shahid MD POINT OF CARE TEST ORDERABLE S Performing Organization Address City/State/[place] [address] (ABNORMAL) BLOOD GAS 2 ARTERIAL (07/08/2017 12:09 AM EST) athologist Signature pH Art 7.26 7.35 - [facility] (Critical) 7.45 [facility] Comment: Noted by instrument repair technician. pCO2 Art 41 35 - 45 mmHg [facility] pO2 Art 96 85 - 104 mmHg [facility] HCO3 Art 17.7 (L) 20.0 - 26.0 mmol/L [facility] BE Art -9.4 (L) -3.0 - 3.0 mmol/L [facility] Hgb Blood Gas 12.4 (L) 13.7 - 16.5 gm/dL [facility] O2HB Art 94.7 94.0 - 97.0 % [facility] COHB Art 0.2 % [facility] Comment: Nonsmokers: 0.5-1.5% COHB Smokers: Variable, but usually less than 10% Toxic: 20-30% COHB Lethal: Greater than 60% COHB METHB Art 0.6 <=1.5 % [facility] Na Whole Blood 141 [...] Bld 315 (H) 65 - 199 mg/dL [facility] Comment: Diabetes: >=200 mg/dL plus symp toms. Lactate WB 7.6 (Critical) 0.5 - 2.2 mmol/L [facility] Comment: Noted by instrument repair technician. FIO2 Art 40 % [facility] PF Ratio Art 240 [facility] Specimen Anatomical Collection Method Collection Time Receive d Time (Source) Location / / Volume Laterality Blood specimen Arterial Draw / 07/08/2017 12:09 2016 5:31 (specimen) Unknown AM EST AM EST Resulting Agency Comment Spec In Lab Samy Maldonado MD CHEMISTRY ORDERABLES Performing Organization Address City/State/[place] [address] (ABNORMAL) POCT Glucose (07/07/2017 10:56 PM EST) P athologist Signature POC Glucose 292 (H) 65 - 199 [facility] mg/dL [facility] Comment: Supplemental ranges: <140 mg/dL before meals <180 mg/dL all other times of the day Specimen Anatomical Collection Method Collection Time Receive d Time (Source) Location / / Volume Laterality Blood specimen 07/07/2017 10:56 7 (specimen) PM EST 10:56 PM EST Daphne Shahid MD POINT OF CARE TEST ORDERABLE S Performing Organization Address City/State/[place] [address] (ABNORMAL) BLOOD GAS 2 ARTERIAL (07/07/2017 10:04 PM EST) athologist Signature pH Art 7.22 7.35 - [facility] (Critical) 7.45 [facility] Comment: Noted by instrument repair technician. pCO2 Art 42 35 - 45 mmHg [facility] pO2 Art 94 85 - 104 mmHg [facility] HCO3 Art 16.9 (L) 20.0 - 26.0 mmol/L [facility] BE Art -10.7 (L) -3.0 - 3.0 mmol/L [facility] Hgb Blood Gas 13.0 (L) 13.7 - 16.5 gm/dL [facility] O2HB Art 93.8 (L) 94.0 - 97.0 % [facility] COHB Art 0.7 % [facility] Comment: Nonsmokers: 0.5-1.5% COHB Smokers: Variable, but usually less than 10% Toxic: 20-30% COHB Lethal: Greater than 60% COHB METHB Art 0.7 <=1.5 % [facility] Na Whole Blood 140 [...] Bld 304 (H) 65 - 199 mg/dL [facility] Comment: Diabetes: >=200 mg/dL plus symp toms. Lactate WB 8.2 (Critical) 0.5 - 2.2 mmol/L [facility] Comment: Noted by instrument repair technician. FIO2 Art 40 % [facility] PF Ratio Art 235 [facility] Specimen Anatomical Collection Method Collection Time Receive d Time (Source) Location / / Volume Laterality Blood specimen 07/07/2017 10:04 7 (specimen) PM EST 10:04 PM EST Daphne Shahid MD CHEMISTRY ORDERABLES Performing Organization Address City/[facility]/[place] [address] (ABNORMAL) Hemoglobin (07/07/2017 10:00 PM EST) athologist Signature Hemoglobin 12.8 (L) 13.7 - [facility] 16.5 gm/dL [facility] Specimen Anatomical Collection Method Collection Time Receive d Time (Source) Location / / Volume Laterality Blood specimen 07/07/2017 10:00 7 (specimen) PM EST 10:13 PM EST Resulting Agency Comment Spec In Lab Yuan Webber MD HEMATOLOGY ORDERABLES Performing Organization Address City/[facility]/[place] [address] (ABNORMAL) Potassium (07/07/2017 10:00 PM EST) athologist Signature Potassium 3.4 (L) 3.5 - 5.0 [facility] mmol/L [facility] Comment: Please note: ??Patients with [...] Webber MD CHEMISTRY ORDERABLES Performing Organization Address City/[facility]/[place] [address] (ABNORMAL) POCT Glucose (07/07/2017 8:49 PM EST) P athologist Signature POC Glucose 241 (H) 65 - 199 [facility] mg/dL [facility] Comment: Supplemental ranges: <140 mg/dL before meals <180 mg/dL all other times of the day Specimen Anatomical Collection Method Collection Time Receive d Time (Source) Location / / Volume Laterality Blood specimen 07/07/2017 8:49 PM 017 8:49 (specimen) EST PM EST Daphne Shahid MD POINT OF CARE TEST ORDERABLE S Performing Organization Address City/[facility]/[place] [address] Prepare Albumin 5% in 250 mL (07/07/2017 8:03 PM EST) athologist Signature Dispensed? Yes [facility] Specimen Anatomical Collection Method Collection Time Receive d Time (Source) Location / / Volume Laterality Blood specimen No Charge / 07/07/2017 8:03 PM 017 8:04 (specimen) Unknown EST PM EST Resulting Agency Comment Spec In Lab Michael BROWN BLOOD BANK ORDERABLES Performing Organization Address City/[facility]/[place] [address] EKG 12 Lead (07/07/2017 7:17 PM EST) Component Value Ref Range Test Analysis Performed Pathologis t Method Time At Signature Ventricular rate 75 BPM MUSE SYSTEM Atrial Rate 75 BPM MUSE SYSTEM P-R Interval 168 ms MUSE SYSTEM QRS Duration 104 ms MUSE SYSTEM Q-T Interval 462 ms MUSE SYSTEM QTC Calculated 515 ms MUSE SYSTEM (Bezet) Calculated P [place] 52 degrees MUSE SYSTEM Calculated R [place] -40 degrees MUSE SYSTEM Calculated T [place] 39 degrees MUSE SYSTEM INTERPRETATION Normal sinus [...] Organization Address City/State/ZIP Code Phon e Number [employer] SYSTEM XR Chest PA or AP 1 [...] 7.35 - [facility] (Critical) 7.45 [facility] Comment: Noted by instrument repair technician. pCO2 Art 50 (H) 35 - 45 mmHg [facility] pO2 Art 238 (H) 85 - 104 mmHg [facility] HCO3 Art 19.8 (L) 20.0 - 26.0 mmol/L [facility] BE Art -8.1 (L) -3.0 - 3.0 mmol/L [facility] Hgb Blood Gas 12.8 (L) 13.7 - 16.5 gm/dL [facility] O2HB Art 97.5 (H) 94.0 - 97.0 % [facility] COHB Art 0.5 % [facility] Comment: Nonsmokers: 0.5-1.5% COHB Smokers: Variable, but usually less than 10% Toxic: 20-30% COHB Lethal: Greater than 60% COHB METHB Art 0.7 <=1.5 % [facility] Na Whole Blood 140 135 - 145 mmol/L [facility] K Whole Blood 3.0 (Critical) 3.5 - 5.0 mmol/L [facility] Comment: Noted by instrument repair technician. Please note: Patients with WBC >100,000 [...] Bld 270 (H) 65 - 199 mg/dL [facility] Comment: Diabetes: >=200 mg/dL plus symp toms. Lactate WB 4.9 (Critical) 0.5 - 2.2 mmol/L [facility] Comment: Noted by instrument repair technician. FIO2 Art 100 % [facility] PF Ratio Art 238 [facility] Specimen Anatomical Collection Method Collection Time Receive d Time (Source) Location / / Volume Laterality Blood specimen 07/07/2017 6:57 PM 017 6:57 (specimen) EST PM EST Daphne Shahid MD CHEMISTRY ORDERABLES Performing Organization Address City/State/ZIP [place] [address] (ABNORMAL) BLOOD GAS 2 ARTERIAL (07/07/2017 5:31 PM EST) athologist Signature pH Art 7.29 7.35 - [facility] (Critical) 7.45 [facility] Comment: Noted by instrument repair technician. pCO2 Art 48 (H) 35 - 45 mmHg [facility] pO2 Art 137 (H) 85 - 104 mmHg [facility] HCO3 Art 22.4 20.0 - 26.0 mmol/L [facility] BE Art -4.3 (L) -3.0 - 3.0 mmol/L [facility] Hgb Blood Gas 10.0 (L) 13.7 - 16.5 gm/dL [facility] O2HB Art 97.3 (H) 94.0 - 97.0 % [facility] COHB Art 0.3 % [facility] Comment: Nonsmokers: 0.5-1.5% COHB Smokers: Variable, but usually less than 10% Toxic: 20-30% COHB Lethal: Greater than 60% COHB METHB Art 0.3 <=1.5 % [facility] Na Whole Blood 132 [...] Bld 293 (H) 65 - 199 mg/dL [facility] Comment: Diabetes: >=200 mg/dL plus symp toms. Lactate WB 3.1 (H) 0.5 - 2.2 mmol/L [facility] Specimen Anatomical Collection Method Collection Time Receive d Time (Source) Location / / Volume Laterality Blood specimen 07/07/2017 5:31 PM 017 5:31 (specimen) EST PM EST Daphne Shahid MD CHEMISTRY ORDERABLES Performing Organization Address City/[facility] [place] [address] Fibrinogen (07/07/2017 5:30 PM EST) athologist Signature Fibrinogen 224 180 - 510 [facility] mg/dL [facility] Comment: Called by: JEET, Read [...] Perez MD HEMATOLOGY ORDERABLES Performing Organization Address City/[facility]/ZIP [facility] [place] [place] [address] APTT (07/07/2017 5:30 PM EST) athologist Signature PTT 30 25 - 35 sec [facility] Comment: The recommended therapeutic range for fu ll dose, unfractionated heparin at [facility] is 80 ? 114 seconds. [...] Perez MD HEMATOLOGY ORDERABLES Performing Organization Address [facility]/ZIP [facility] [place] [address] (ABNORMAL) Prothrombin Time (07/07/2017 5:30 PM EST) P athologist Signature PT 19.0 (H) 11.8 - 14.0 [facility] LABORATORY INR 1.6 (H) 0.9 [...] Perez MD HEMATOLOGY ORDERABLES Performing Organization Address City/[facility] [place] [address] (ABNORMAL) Hemogram (07/07/2017 5:30 PM EST) P athologist Signature WBC 19.6 (H) 4.0 - 9.5 [facility] x[facility](3[facility] LABORATORY RBC 3.08 (L) 4.58 - [facility] 5.54 [facility] x10(6)/[facility] LABORATORY Hemoglobin 9.2 (L) 13.7 - [facility] 16.5 gm/dL [facility] Hematocrit 28.0 (L) 40.5 - [facility] RYAN 48.5 % [facility] Comment: This result has been called to MONICA MORAN by DONALD GROSSMAN on 07 07 2017 at 1759, and has been read back. MCV 90.9 82.9 - 93.1 fL [facility] MCH 29.9 27.5 - 32.1 pg [facility] MCHC 32.9 32.0 - 35.7 gm/dL [facility] Platelets 155 145 - 357 x10(3)/mcL [facility] RDWSD 46.5 (H) 36.0 - 45.0 [facility]ORY RDWCV 14.1 (H) 11.4 - 13.8 % [facility] MPV 9.5 7.6 - 12.9 [facility] LABORATORY nRBC % Auto 0.0 % [facility] nRBC Abs Auto 0.000 0.000 - 0.000 x10(3)/[facility] LABORATORY Specimen Anatomical Collection Method Collection Time Receive d Time (Source) Location / / Volume Laterality Blood specimen 07/07/2017 5:30 PM 017 5:34 (specimen) EST PM EST Resulting Agency Comment Spec In Lab Yifan Perez MD HEMATOLOGY ORDERABLES Performing Organization Address City/[facility]/[place] [address] Prepare Platelets, Apheresis (07/07/2017 5:00 PM EST) P athologist Signature Dispensed? Yes [facility] Specimen Anatomical Collection Method Collection Time Receive d Time (Source) Location / / Volume Laterality Blood specimen 07/07/2017 5:00 PM 017 4:58 (specimen) EST PM EST Daphne Shahid MD BLOOD BANK ORDERABLES Performing Organization Address City/[facility]/ZIP Code Phon e Number [address] Platelet count (07/07/2017 4:55 PM EST) P athologist Signature Platelets 177 145 - 357 [facility] x10(3)/[facility] LABORATORY Plat Immature 1.5 0.0 - 7.4 [facility] % % [facility] Comment: Limitation of the Immature Platelet Frac tion (IPF)-May be less reliable when the platelet count is less than 75o620/u L due to statistical imprecision. The IPF [...] in a decreased state of production. References: [employer] The Clinical Value of the Immature Platelet Fraction (IPF) in Cell Recovery Document Number 10-1143 12/2010 [employer] The Role of the Imm ature [...] Address City/State/Z[place] [address] (ABNORMAL) Hemoglobin and Hematocrit, blood (07/07/2017 4:55 PM EST) P athologist Signature Hemoglobin 9.1 (L) 13.7 - 16.5 [facility] gm/dL [facility] Comment: This result has been [...] Address City/State/ZIP [place] [address] (ABNORMAL) BLOOD GAS 2 ARTERIAL (07/07/2017 4:38 PM EST) Analysis Performed At Patho logist Time Signature pH Art 7.37 7.35 - [facility] 7.45 [facility] pCO2 Art 44 35 - 45 [facility] LABORATORY pO2 Art 322 (H) 85 - 104 [facility]ORY HCO3 Art 24.9 20.0 - [facility] 26.0 [facility] mmol/L [facility] BE Art -0.4 -3.0 - 3.0 [facility] mmol/L [facility] Hgb Blood Gas 10.1 (L) 13.7 - [facility] 16.5 gm/dL [facility] O2HB Art 98.7 (H) 94.0 - [facility] 97.0 % [facility] COHB Art 0.1 % [facility] Comment: Nonsmokers: 0.5-1.5% COHB Smokers: Variable, but usually less than 10% Toxic: 20-30% COHB Lethal: Greater than 60% COHB METHB Art 0.3 <=1.5 % [facility] Na Whole Blood 130 [...] [facility] Comment: Noted by instrument repair technician. Note: ??Total bilirubin higher than 20 m g/dL may lead to falsely low ionized calcium. CL Whole Blood 101 98 - 107 mmol/L [facility] Gluc Whole Bld 295 (H) 65 - 199 mg/dL [facility] Comment: Diabetes: >=200 mg/dL plus symp toms. Lactate WB 1.7 0.5 - 2.2 mmol/L [facility] Specimen Anatomical Collection Method Collection Time Receive d Time (Source) Location / / Volume Laterality Blood specimen 07/07/2017 4:38 PM 017 4:38 (specimen) EST PM EST Daphne Shahid MD CHEMISTRY ORDERABLES Performing Organization Address City/State/Z[place] [address] (ABNORMAL) BLOOD GAS 2 VENOUS (07/07/2017 4:06 PM EST) Analysis Performed At Patho logist Time Signature pH Cody 7.31 (L) 7.32 - [facility] 7.42 [facility] pCO2 Cody 47 41 - 51 [facility] LAB[facility]ATORY pO2 Cody 53 (H) 25 - 40 [facility]ORY HCO3 Cody 22.7 mmol/L [facility] BE Cody -3.7 mmol/L [facility] Hgb Blood Gas 10.2 (L) 13.7 - [facility] 16.5 gm/dL [facility] O2HB Cody 81.0 % [facility] COHB Cody 1.0 % [facility] Comment: Nonsmokers: 0.5-1.5% COHB Smokers: Variable, but usually less than 10% Toxic: 20-30% COHB Lethal: Greater than 60% COHB METHB Cody 0.3 <=1.5 % [facility] Na Whole Blood 132 [...] [facility] Comment: Noted by instrument repair technician. Note: ??Total bilirubin higher than 20 m g/dL may lead to falsely low ionized calcium. CL Whole Blood 100 98 - 107 mmol/L [facility] Gluc Whole Bld 231 (H) 65 - 199 mg/dL [facility] Comment: Diabetes: >=200 mg/dL plus symp toms Lactate WB 1.1 0.5 - 2.2 mmol/L [facility] BGas Source Venous [facility] Specimen Anatomical Collection Method Collection Time Receive d Time (Source) Location / / Volume Laterality Blood specimen 07/07/2017 4:06 PM 017 4:06 (specimen) EST PM EST Daphne Shahid MD CHEMISTRY ORDERABLES Performing Organization Address City/State/ZIP [place] [address] (ABNORMAL) BLOOD GAS 2 ARTERIAL (07/07/2017 4:05 PM EST) Analysis Performed At Patho logist Time Signature pH Art 7.36 7.35 - [facility] 7.45 [facility] pCO2 Art 40 35 - 45 [facility]ORY pO2 Art 282 (H) 85 - 104 [facility]ORY HCO3 Art 22.1 20.0 - [facility] 26.0 [facility] mmol/L [facility] BE Art -3.4 (L) -3.0 - 3.0 [facility] mmol/L [facility] Hgb Blood Gas 10.2 (L) 13.7 - [facility] 16.5 gm/dL [facility] O2HB Art 98.4 (H) 94.0 - [facility] 97.0 % [facility] COHB Art 0.3 % [facility] Comment: Nonsmokers: 0.5-1.5% COHB Smokers: Variable, but usually less than 10% Toxic: 20-30% COHB Lethal: Greater than 60% COHB METHB Art 0.3 <=1.5 % [facility] Na Whole Blood 131 [...] [facility] Comment: Noted by instrument repair technician. Note: ??Total bilirubin higher than 20 m g/dL may lead to falsely low ionized calcium. CL Whole Blood 101 98 - 107 mmol/L [facility] Gluc Whole Bld 260 (H) 65 - 199 mg/dL [facility] Comment: Diabetes: >=200 mg/dL plus symp toms. Lactate WB 1.4 0.5 - 2.2 mmol/L [facility] Specimen Anatomical Collection Method Collection Time Receive d Time (Source) Location / / Volume Laterality Blood specimen 07/07/2017 4:05 PM 017 4:05 (specimen) EST PM EST Daphne Shahid MD CHEMISTRY ORDERABLES Performing Organization Address City/State/[place] [address] (ABNORMAL) BLOOD GAS 2 ARTERIAL (07/07/2017 2:29 PM EST) Analysis Performed At Patho logist Time Signature pH Art 7.43 7.35 - [facility] 7.45 [facility] pCO2 Art 36 35 - 45 [facility]ORY pO2 Art 221 (H) 85 - 104 [facility] HCO3 Art 23.2 20.0 - [facility] 26.0 [facility] mmol/L [facility] BE Art -1.2 -3.0 - 3.0 [facility] mmol/L [facility] Hgb Blood Gas 13.9 13.7 - [facility] 16.5 gm/dL [facility] O2HB Art 97.8 (H) 94.0 - [facility] 97.0 % [facility] COHB Art 1.1 % [facility] Comment: Nonsmokers: 0.5-1.5% COHB Smokers: Variable, but usually less than 10% Toxic: 20-30% COHB Lethal: Greater than 60% COHB METHB Art 0.3 <=1.5 % [facility] Na Whole Blood 139 [...] Whole Bld 184 65 - 199 mg/dL [facility] Comment: Diabetes: >=200 mg/dL plus symp toms. Lactate WB 1.5 0.5 - 2.2 mmol/L [facility] Specimen Anatomical Collection Method Collection Time Receive d Time (Source) Location / / Volume Laterality Blood specimen 07/07/2017 2:29 PM 017 2:29 (specimen) EST PM EST Daphne Shahid MD CHEMISTRY ORDERABLES Performing Organization Address City/State/[place] [address] Prepare Coag Factors (Non-Hemophilia) (07/07/2017 1:25 PM EST) P athologist Signature Dispensed? Yes [facility] Specimen Anatomical Collection Method Collection Time Receive d Time (Source) Location / / Volume Laterality Blood specimen 07/07/2017 1:25 PM 017 1:21 (specimen) EST PM EST Daphne Shahid MD BLOOD BANK ORDERABLES Performing Organization Address City/State/[place] [address] Prepare RBC (07/07/2017 1:10 PM EST) P athologist Signature Dispensed? Yes [facility] Specimen Anatomical Collection Method Collection Time Receive d Time (Source) Location / / Volume Laterality Blood specimen 07/07/2017 1:10 PM 017 1:05 (specimen) EST PM EST Daphne Shahid MD BLOOD BANK ORDERABLES Performing Organization Address City/State/[place] [address] POCT Glucose (07/07/2017 11:56 AM EST) athologist Signature POC Glucose 188 65 - 199 [facility] mg/dL [facility] Comment: Supplemental ranges: <140 mg/dL before meals <180 mg/dL all other times of the day Specimen Anatomical Collection Method Collection Time Receive d Time (Source) Location / / Volume Laterality Blood specimen 07/07/2017 11:56 7 (specimen) AM EST 11:56 AM EST Daphne Shahid MD POINT OF CARE TEST ORDERABLE S Performing Organization Address City/State/ZIP Code Phon e Number [address] POCT Glucose (07/07/2017 11:05 AM EST) athologist Signature POC Glucose 168 65 - 199 [facility] mg/dL [facility] Comment: Supplemental ranges: <140 mg/dL before meals <180 mg/dL all other times of the day Specimen Anatomical Collection Method Collection Time Receive d Time (Source) Location / / Volume Laterality Blood specimen 07/07/2017 11:05 7 (specimen) AM EST 11:05 AM EST Daphne Shahid MD POINT OF CARE TEST ORDERABLE S Performing Organization Address City/State/ZIP Code Phon e Number [address] POCT Glucose (07/07/2017 10:02 AM EST) athologist Signature POC Glucose 191 65 - 199 [facility] mg/dL [facility] Comment: Supplemental ranges: <140 mg/dL before meals <180 mg/dL all other times of the day Specimen Anatomical Collection Method Collection Time Receive d Time (Source) Location / / Volume Laterality Blood specimen 07/07/2017 10:02 7 (specimen) AM EST 10:02 AM EST Daphne Shahid MD POINT OF CARE TEST ORDERABLE S Performing Organization Address City/State/[place] [address] POCT Glucose (07/07/2017 7:53 AM EST) athologist Signature POC Glucose 178 65 - 199 [facility] mg/dL [facility] Comment: Supplemental ranges: <140 mg/dL before meals <180 mg/dL all other times of the day Specimen Anatomical Collection Method Collection Time Receive d Time (Source) Location / / Volume Laterality Blood specimen 07/07/2017 7:53 AM 017 7:53 (specimen) EST AM EST Daphne Shahid MD POINT OF CARE TEST ORDERABLE S Performing Organization Address City/State/[place] [address] POCT Glucose (07/07/2017 7:03 AM EST) athologist Signature POC Glucose 188 65 - 199 [facility] mg/dL [facility] Comment: Supplemental ranges: <140 mg/dL before meals <180 mg/dL all other times of the day Specimen Anatomical Collection Method Collection Time Receive d Time (Source) Location / / Volume Laterality Blood specimen 07/07/2017 7:03 AM 017 7:03 (specimen) EST AM EST Daphne Shahid MD POINT OF CARE TEST ORDERABLE S Performing Organization Address City/State/ZIP Code Phon e Number [address] (ABNORMAL) POCT Glucose (07/07/2017 6:17 AM EST) athologist Signature POC Glucose 207 (H) 65 - 199 [facility] mg/dL [facility] Comment: Supplemental ranges: <140 mg/dL before meals <180 mg/dL all other times of the day Specimen Anatomical Collection Method Collection Time Receive d Time (Source) Location / / Volume Laterality Blood specimen 07/07/2017 6:17 AM 017 6:17 (specimen) EST AM EST Daphne Shahid MD POINT OF CARE TEST ORDERABLE S Performing Organization Address City/State/ZIP Code Phon e Number [place] [phone] Differential, Automated (07/07/2017 5:15 AM EST) P athologist Signature Neutrophils % 69.7 % [facility] Neutr Abs (ANC) 5.32 1.70 - [facility] 6.10 [facility] x10(3)[facility] LABORATORY Lymphocytes % 16.3 % [facility] Lymphocytes Abs 1.2 0.9 - 3.2 [facility] x10(3)/[facility] LABORATORY Monocytes % 10.5 % [facility] Monocyte Abs 0.8 0.3 - 0.9 [facility] x10(3)/[facility] LABORATORY Eosinophils % 2.5 % [facility] Eosinophils Abs 0.2 0.0 - 0.4 [facility] x10(3)/[facility] LABORATORY Basophils % 0.7 % [facility] Basophils Abs 0.0 0.0 - 0.1 [facility] x10(3)/[facility] LABORATORY Immature Gran % 0.30 % WHITE [...] Melisa Gran Abs 0.02 0.00 - 0.04 x10(3)/[facility] Specimen Anatomical Collection Method Collection Time Receive d Time (Source) Location / / Volume Laterality Blood specimen 07/07/2017 5:15 AM 017 5:34 (specimen) EST AM EST Resulting Agency Comment Spec In Lab Daphne Shahid MD HEMATOLOGY ORDERABLES Performing Organization Address City/State/[place] [address] (ABNORMAL) Hemogram (07/07/2017 5:15 AM EST) Analysis Performed At Patho logist Time Signature WBC 7.6 4.0 - 9.5 [facility] x[facility](3[facility] LABORATORY RBC 4.82 4.58 - [facility] 5.54 [facility] x10(6)/[facility] LABORATORY Hemoglobin 14.4 13.7 - [facility] 16.5 gm/dL [facility] Hematocrit 42.1 40.5 - [facility] 48.5 % [facility] MCV 87.3 82.9 - [facility] 93.1 [facility] LABORATORY MCH 29.9 27.5 - [facility] 32.1 pg [facility] MCHC 34.2 32.0 - [facility] 35.7 gm/dL [facility] Platelets 188 145 - 357 [facility] x10(3)/[facility] LABORATORY RDWSD 45.1 (H) 36.0 - [facility] 45.0 [facility] LABORATORY RDWCV 14.3 (H) 11.4 - [facility] 13.8 % [facility] MPV 9.4 7.6 - 12.9 [facility] LABORATORY nRBC % Auto 0.0 % [facility] nRBC Abs Auto 0.000 0.000 - [facility] 0.000 [facility] x10(3)/[facility] LABORATORY Specimen Anatomical Collection Method Collection Time Receive d Time (Source) Location / / Volume Laterality Blood specimen 07/07/2017 5:15 AM 017 5:34 (specimen) EST AM EST Resulting Agency Comment Spec In Lab Daphne Shahid MD HEMATOLOGY ORDERABLES Performing Organization Address City/State/[place] [address] (ABNORMAL) APTT (07/07/2017 5:15 AM EST) P athologist Signature PTT 69 (H) 25 - 35 sec [facility] Comment: The recommended therapeutic range for fu ll dose, unfractionated heparin at [facility] is 80 ? 114 seconds. [...] Shahid MD HEMATOLOGY ORDERABLES Performing Organization Address City/[facility]/ZIP Code Phon e Number [address] Magnesium (07/07/2017 5:15 AM EST) athologist Signature Magnesium 0.94 0.69 - 1.07 [facility] mmol/L [facility] Specimen Anatomical Collection Method Collection Time Receive d Time (Source) Location / / Volume Laterality Blood specimen 07/07/2017 5:15 AM 017 5:34 (specimen) EST AM EST Resulting Agency Comment Spec In Lab Daphne Shahid MD CHEMISTRY ORDERABLES Performing Organization Address City/[facility] Code Phon e Number [address] (ABNORMAL) Basic Metabolic Panel (non-fasting) (07/07/2017 5:15 AM EST) athologist Signature Glucose Lvl 203 (H) 65 - 199 [facility] mg/dL [facility] Comment: Diabetes: >=200 mg/dL plus symp toms BUN 15 10 - 20 mg/dL [facility] Creatinine 1.09 0.80 - 1.50 mg/dL [facility] Sodium 142 135 - 145 mmol/L [facility] Potassium 4.4 3.5 - 5.0 mmol/L [facility] LABORATORY Calcium 8.6 8.5 - 10.5 mg/dL [facility] Estimated GFR >60 >=60 [facility] Comment: The reported eGFR should be multiplied b y 1.2 for patients. The MDRD is not an appropriate measure o f renal function for patients with body mass extremes or in patients with acute kidney failure. http://Thrill/DHnkdep http://Thrill/DHMCnkf Specimen Anatomical Collection Method Collection Time Receive d Time (Source) Location / / Volume Laterality Blood specimen 07/07/2017 5:15 AM 017 5:34 (specimen) EST AM EST Resulting Agency Comment Spec In Lab Daphne Shahid MD CHEMISTRY ORDERABLES Performing Organization Address City/State/ZIP [place] [address] (ABNORMAL) Cardiac Enzymes (LEB/CGP) (07/07/2017 5:15 AM EST) P athologist Signature Troponin-T 2.07 (H) 0.00 - [facility] 0.00 ng/mL [facility] Comment: The 99th percentile for Troponin T is le ss than 0.01 ng/mL, any detectable cTnT concentration using this assay should be considered elevated. According to the third universal definit ion of myocardial infarction the following criteria with a clinical prese ntation consistent with acute myocardial ischemia meets the diagnosis for a myocardial infarction (OK). Detection of a rise and/or fall of [...] additional sample may be indicated. Reference: Third [place] Definition of Myocardial Infarction. Journal of the [place] 2012;60:1581-98 CK, Total 88 0 - 200 unit/L [facility] Specimen Anatomical Collection Method Collection Time Receive d Time (Source) Location / / Volume Laterality Blood specimen 07/07/2017 5:15 AM 017 5:34 (specimen) EST AM EST Resulting Agency Comment Spec In Lab Daphne Shahid MD CHEMISTRY ORDERABLES Performing Organization Address City/[facility]/ZIP [facility] Phon e Number [address] POCT Glucose (07/07/2017 5:01 AM EST) athologist Signature POC Glucose 182 65 - 199 [facility] mg/dL [facility] Comment: Supplemental ranges: <140 mg/dL before meals <180 mg/dL all other times of the day Specimen Anatomical Collection Method Collection Time Receive d Time (Source) Location / / Volume Laterality Blood specimen 07/07/2017 5:01 AM 017 5:01 (specimen) EST AM EST Daphne Shahid MD POINT OF CARE TEST ORDERABLE S Performing Organization Address City/[facility]/ZIP [facility] Phon e Number [address] POCT Glucose (07/07/2017 4:08 AM EST) athologist Signature POC Glucose 199 65 - 199 [facility] mg/dL [facility] Comment: Supplemental ranges: <140 mg/dL before meals <180 mg/dL all other times of the day Specimen Anatomical Collection Method Collection Time Receive d Time (Source) Location / / Volume Laterality Blood specimen 07/07/2017 4:08 AM 017 4:08 (specimen) EST AM EST Daphne Shahid MD POINT OF CARE TEST ORDERABLE S Performing Organization Address City/[facility]/[place] [address] POCT Glucose (07/07/2017 3:03 AM EST) P athologist Signature POC Glucose 188 65 - 199 [facility] mg/dL [facility] Comment: Supplemental ranges: <140 mg/dL before meals <180 mg/dL all other times of the day Specimen Anatomical Collection Method Collection Time Receive d Time (Source) Location / / Volume Laterality Blood specimen 07/07/2017 3:03 AM 017 3:03 (specimen) EST AM EST Daphne Shahid MD POINT OF CARE TEST ORDERABLE S Performing Organization Address City/[facility]/[place] [address] (ABNORMAL) POCT Glucose (07/07/2017 2:08 AM EST) athologist Signature POC Glucose 200 (H) 65 - 199 [facility] mg/dL [facility] Comment: Supplemental ranges: <140 mg/dL before meals <180 mg/dL all other times of the day Specimen Anatomical Collection Method Collection Time Receive d Time (Source) Location / / Volume Laterality Blood specimen 07/07/2017 2:08 AM 017 2:08 (specimen) EST AM EST Daphne Shahid MD POINT OF CARE TEST ORDERABLE S Performing Organization Address City/State/[place] [address] (ABNORMAL) POCT Glucose (07/07/2017 1:31 AM EST) P athologist Signature POC Glucose 209 (H) 65 - 199 [facility] mg/dL [facility] Comment: Supplemental ranges: <140 mg/dL before meals <180 mg/dL all other times of the day Specimen Anatomical Collection Method Collection Time Receive d Time (Source) Location / / Volume Laterality Blood specimen 07/07/2017 1:31 AM 017 1:31 (specimen) EST AM EST Daphne Shahid MD POINT OF CARE TEST ORDERABLE S Performing Organization Address City/State/ZIP Code Phon e Number [place] [phone] XR Chest PA or [...] 65 - 199 [facility] mg/dL [facility] Comment: Supplemental ranges: <140 mg/dL before meals <180 mg/dL all other times of the day Specimen Anatomical Collection Method Collection Time Receive d Time (Source) Location / / Volume Laterality Blood specimen 07/07/2017 12:07 7 (specimen) AM EST 12:07 AM EST Daphne Shahid MD POINT OF CARE TEST ORDERABLE S Performing Organization Address City/State/[place] [address] (ABNORMAL) APTT (07/07/2017 12:00 AM EST) athologist Signature PTT 103 (H) 25 - 35 sec [facility] Comment: The recommended therapeutic range for fu ll dose, unfractionated heparin at [facility] is 80 ? 114 seconds. [...] Shahid MD HEMATOLOGY ORDERABLES Performing Organization Address [facility]/[place] [address] POCT Glucose (07/06/2017 9:55 PM EST) athologist Signature POC Glucose 109 65 - 199 [facility] mg/dL [facility] Comment: Supplemental ranges: <140 mg/dL before meals <180 mg/dL all other times of the day Specimen Anatomical Collection Method Collection Time Receive d Time (Source) Location / / Volume Laterality Blood specimen 07/06/2017 9:55 PM 017 9:55 (specimen) EST PM EST Daphne Shahid MD POINT OF CARE TEST ORDERABLE S Performing Organization Address City/[facility]/ZIP Code Phon e Number [address] POCT Glucose (07/06/2017 9:04 PM EST) athologist Signature POC Glucose 120 65 - 199 [facility] mg/dL [facility] Comment: Supplemental ranges: <140 mg/dL before meals <180 mg/dL all other times of the day Specimen Anatomical Collection Method Collection Time Receive d Time (Source) Location / / Volume Laterality Blood specimen 07/06/2017 9:04 PM 017 9:04 (specimen) EST PM EST Daphne Shahid MD POINT OF CARE TEST ORDERABLE S Performing Organization Address City/[facility]/[place] [address] POCT Glucose (07/06/2017 7:45 PM EST) athologist Signature POC Glucose 158 65 - 199 [facility] mg/dL [facility] Comment: Supplemental ranges: <140 mg/dL before meals <180 mg/dL all other times of the day Specimen Anatomical Collection Method Collection Time Receive d Time (Source) Location / / Volume Laterality Blood specimen 07/06/2017 7:45 PM 017 7:45 (specimen) EST PM EST Daphne Shahid MD POINT OF CARE TEST ORDERABLE S Performing Organization Address City/[facility]/[place] [address] Potassium (07/06/2017 7:40 PM EST) athologist [facility] Potassium 3.9 3.5 - 5.0 [facility] mmol/L [facility] Comment: Please note: ??Patients with [...] Shahid MD CHEMISTRY ORDERABLES Performing Organization Address City/[facility]/[place] [address] (ABNORMAL) Cardiac Enzymes (LEB/CGP) (07/06/2017 7:40 PM EST) athologist Signature Troponin-T 2.27 (H) 0.00 - [facility] 0.[facility] ng/mL [facility] Comment: The 99th percentile for Troponin T is le ss than 0.01 ng/mL, any detectable cTnT concentration using this assay should be considered elevated. According to the third universal definit ion of myocardial infarction the following criteria with a clinical prese ntation consistent with acute myocardial ischemia meets the diagnosis for a myocardial infarction (OK). Detection of a rise and/or fall of [...] additional sample may be indicated. Reference: Third [place] Definition of Myocardial Infarction. Journal of the [place] [employer] 2012;60:1581-98 CK, Total 93 0 - 200 unit/L [facility] Specimen Anatomical Collection Method Collection Time Receive d Time (Source) Location / / Volume Laterality Blood specimen 07/06/2017 7:40 PM 017 7:52 (specimen) EST PM EST Resulting Agency Comment Spec In Lab Daphne Shahid MD CHEMISTRY ORDERABLES Performing Organization Address City/[facility]/ZIP [place] [address] (ABNORMAL) POCT Glucose (07/06/2017 7:13 PM EST) P athologist Signature POC Glucose 200 (H) 65 - 199 [facility] mg/dL [facility] Comment: Supplemental ranges: <140 mg/dL before meals <180 mg/dL all other times of the day Specimen Anatomical Collection Method Collection Time Receive d Time (Source) Location / / Volume Laterality Blood specimen 07/06/2017 7:13 PM 017 7:13 (specimen) EST PM EST Daphne Shahid MD POINT OF CARE TEST ORDERABLE S Performing Organization Address City/State/[place] [address] (ABNORMAL) APTT (07/06/2017 6:15 PM EST) athologist Signature PTT 94 (H) 25 - 35 sec [facility] Comment: The recommended therapeutic range for fu ll dose, unfractionated heparin at [facility] is 80 ? 114 seconds. [...] Shahid MD HEMATOLOGY ORDERABLES Performing Organization Address City/[facility]/[place] [address] (ABNORMAL) POCT Glucose (07/06/2017 6:03 PM EST) athologist Signature POC Glucose 236 (H) 65 - 199 [facility] mg/dL [facility] Comment: Supplemental ranges: <140 mg/dL before meals <180 mg/dL all other times of the day Specimen Anatomical Collection Method Collection Time Receive d Time (Source) Location / / Volume Laterality Blood specimen 07/06/2017 6:03 PM 017 6:03 (specimen) EST PM EST Daphne Shahid MD POINT OF CARE TEST ORDERABLE S Performing Organization Address City/State/[place] [address] (ABNORMAL) POCT Glucose (07/06/2017 5:01 PM EST) athologist Signature POC Glucose 235 (H) 65 - 199 [facility] mg/dL [facility] Comment: Supplemental ranges: <140 mg/dL before meals <180 mg/dL all other times of the day Specimen Anatomical Collection Method Collection Time Receive d Time (Source) Location / / Volume Laterality Blood specimen 07/06/2017 5:01 PM 017 5:01 (specimen) EST PM EST Daphne Shahid MD POINT OF CARE TEST ORDERABLE S Performing Organization Address City/[facility]/ZIP Code Phon e Number [address] (ABNORMAL) POCT Glucose (07/06/2017 4:06 PM EST) athologist Signature POC Glucose 202 (H) 65 - 199 [facility] mg/dL [facility] Comment: Supplemental ranges: <140 mg/dL before meals <180 mg/dL all other times of the day Specimen Anatomical Collection Method Collection Time Receive d Time (Source) Location / / Volume Laterality Blood specimen 07/06/2017 4:06 PM 017 4:06 (specimen) EST PM EST Daphne Shahid MD POINT OF CARE TEST ORDERABLE S Performing Organization Address City/[facility]/[place] [address] POCT Glucose (07/06/2017 2:59 PM EST) athologist Signature POC Glucose 178 65 - 199 [facility] mg/dL [facility] Comment: Supplemental ranges: <140 mg/dL before meals <180 mg/dL all other times of the day Specimen Anatomical Collection Method Collection Time Receive d Time (Source) Location / / Volume Laterality Blood specimen 07/06/2017 2:59 PM 017 2:59 (specimen) EST PM EST Daphne Shahid MD POINT OF CARE TEST ORDERABLE S Performing Organization Address City/[facility]/[place] [address] (ABNORMAL) Cardiac Enzymes (LEB/CGP) (07/06/2017 2:10 PM EST) athologist Signature Troponin-T 2.34 (H) 0.00 - [place] 0.00 ng/mL [facility] Comment: The 99th percentile for Troponin T is le ss than 0.01 ng/mL, any detectable cTnT concentration using this assay should be considered elevated. According to the third universal definit ion of myocardial infarction the following criteria with a clinical prese ntation consistent with acute myocardial ischemia meets the diagnosis for a myocardial infarction (OK). Detection of a rise and/or fall of [...] additional sample may be indicated. Reference: Third [place] Definition of Myocardial Infarction. Journal of the [place] College [employer] Cardiology 2012;60:1581-98 CK, Total 101 0 - 200 unit/L [facility] LABORATORY Specimen Anatomical Collection Method Collection Time Receive d Time (Source) Location / / Volume Laterality Blood specimen 07/06/2017 2:10 PM 017 2:26 (specimen) EST PM EST Resulting Agency Comment Spec In Lab Daphne Shahid MD CHEMISTRY ORDERABLES Performing Organization Address City/[facility]/ZIP Code Phon e Number [address] POCT Glucose (07/06/2017 2:08 PM EST) P athologist Signature POC Glucose 192 65 - 199 [facility] mg/dL [facility] Comment: Supplemental ranges: <140 mg/dL before meals <180 mg/dL all other times of the day Specimen Anatomical Collection Method Collection Time Receive d Time (Source) Location / / Volume Laterality Blood specimen 07/06/2017 2:08 PM 017 2:08 (specimen) EST PM EST Daphne Shahid MD POINT OF CARE TEST ORDERABLE S Performing Organization Address City/[facility]/[place] [address] POCT Glucose (07/06/2017 1:04 PM EST) athologist Signature POC Glucose 162 65 - 199 [facility] mg/dL [facility] Comment: Supplemental ranges: <140 mg/dL before meals <180 mg/dL all other times of the day Specimen Anatomical Collection Method Collection Time Receive d Time (Source) Location / / Volume Laterality Blood specimen 07/06/2017 1:04 PM 017 1:04 (specimen) EST PM EST Daphne Shahid MD POINT OF CARE TEST ORDERABLE S Performing Organization Address City/State/ZIP Code Phon e Number [address] POCT Glucose (07/06/2017 12:05 PM EST) athologist Signature POC Glucose 196 65 - 199 [facility] mg/dL [facility] Comment: Supplemental ranges: <140 mg/dL before meals <180 mg/dL all other times of the day Specimen Anatomical Collection Method Collection Time Receive d Time (Source) Location / / Volume Laterality Blood specimen 07/06/2017 12:05 7 (specimen) PM EST 12:05 PM EST Daphne Shahid MD POINT OF CARE TEST ORDERABLE S Performing Organization Address City/State/ZIP Code Phon e Number [address] EKG 12 Lead (07/06/2017 12:00 PM EST) Component Value Ref Range Test Analysis Performed Pathologis t Method Time At Signature Ventricular rate 91 BPM MUSE SYSTEM Atrial Rate 91 BPM MUSE SYSTEM P-R Interval 140 ms MUSE SYSTEM QRS Duration 94 ms MUSE SYSTEM Q-T Interval 394 ms MUSE SYSTEM QTC Calculated 484 ms MUSE SYSTEM (Bezet) Calculated P [place] 36 degrees MUSE SYSTEM Calculated R [place] -19 degrees MUSE SYSTEM Calculated T [place] 104 degrees MUSE SYSTEM INTERPRETATION Normal sinus rhythm MUSE SYSTEM 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) ST & T wave abnormality, consider lateral ischemia Abnormal ECG When compared with ECG of 05-JUL-2017 20:39, No significant change was found Confirmed by MD Verma Gregory A. ([id number]) on 07/06/2017 5:07:33 PM Specimen Anatomical Collection Method Collection Time Receive d Time (Source) Location / / Volume Laterality 07/06/2017 12:00 07/06/2017 5:07 PM EST PM EST Daphne Shahid MD ECG ORDERABLES Performing Organization Address City/State/ZIP Code Phon e Number MUSE SYSTEM ABORH Recheck Status (07/06/2017 12:00 PM EST) [facility] Method Time Signature ABORH Type Completed [facility] LABORATORY Specimen Anatomical Collection Method Collection Time Receive d Time (Source) Location / / Volume Laterality Blood specimen 07/06/2017 12:00 7 (specimen) PM EST 12:24 PM EST Resulting Agency Comment Spec In Lab Daphne Shahid MD BLOOD BANK ORDERABLES Performing Organization Address City/[facility]/ZIP Code Phon e Number [address] Antibody screen (07/06/2017 12:00 PM EST) [facility] Method Time Signature Ab Screen Negative [facility] LABORATORY Expires at 07/09/2017 [place] [id number] on: [facility] Specimen Anatomical Collection Method Collection Time Receive d Time (Source) Location / / Volume Laterality Blood specimen 07/06/2017 12:00 7 (specimen) PM EST 12:24 PM EST Resulting Agency Comment Spec In Lab Daphne Shahid MD BLOOD BANK ORDERABLES Performing Organization Address City/[facility]/[place] [address] ABO/Rh Typing (07/06/2017 12:00 [...] Organization Address City/State/[place] [address] Prothrombin Time (07/06/2017 11:24 AM EST) P athologist Signature PT 13.3 11.8 - 14.0 [facility] LABORATORY INR 1.0 0.9 - 1.1 WHITE [...] Shahid MD HEMATOLOGY ORDERABLES Performing Organization Address City/[facility]/ZIP Code Phon e Number [address] (ABNORMAL) APTT (07/06/2017 11:24 AM EST) athologist Signature PTT 52 (H) 25 - 35 sec [facility] Comment: The recommended therapeutic range for fu ll dose, unfractionated heparin at [facility] is 80 ? 114 seconds. [...] Shahid MD HEMATOLOGY ORDERABLES Performing Organization Address City/[facility]/[place] [address] POCT Glucose (07/06/2017 11:02 AM EST) athologist Signature POC Glucose 187 65 - 199 [facility] mg/dL [facility] Comment: Supplemental ranges: <140 mg/dL before meals <180 mg/dL all other times of the day Specimen Anatomical Collection Method Collection Time Receive d Time (Source) Location / / Volume Laterality Blood specimen 07/06/2017 11:02 7 (specimen) AM EST 11:02 AM EST Daphne Shahid MD POINT OF CARE TEST ORDERABLE S Performing Organization Address City/State/[place] [address] POCT Glucose (07/06/2017 10:18 AM EST) athologist Signature POC Glucose 193 65 - 199 [place] mg/dL [facility] Comment: Supplemental ranges: <140 mg/dL before meals <180 mg/dL all other times of the day Specimen Anatomical Collection Method Collection Time Receive d Time (Source) Location / / Volume Laterality Blood specimen 07/06/2017 10:18 7 (specimen) AM EST 10:18 AM EST Daphne Shahid MD POINT OF CARE TEST ORDERABLE S Performing Organization Address City/State/[place] [address] POCT Glucose (07/06/2017 9:25 AM EST) athologist Signature POC Glucose 182 65 - 199 [place] mg/dL [facility] Comment: Supplemental ranges: <140 mg/dL before meals <180 mg/dL all other times of the day Specimen Anatomical Collection Method Collection Time Receive d Time (Source) Location / / Volume Laterality Blood specimen 07/06/2017 9:25 AM 017 9:25 (specimen) EST AM EST Daphne Shahid MD POINT OF CARE TEST ORDERABLE S Performing Organization Address City/State/[place] [address] (ABNORMAL) Cardiac Enzymes (LEB/CGP) (07/06/2017 8:10 AM EST) athologist Signature Troponin-T 2.26 (H) 0.00 - [place] 0.00 ng/mL [facility] Comment: The 99th percentile for Troponin T is le ss than 0.01 ng/mL, any detectable cTnT concentration using this assay should be considered elevated. According to the third universal definit ion of myocardial infarction the following criteria with a clinical prese ntation consistent with acute myocardial ischemia meets the diagnosis for a myocardial infarction (OK). Detection of a rise and/or fall of [...] additional sample may be indicated. Reference: Third [place] Definition of Myocardial Infarction. Journal of the [place] College [employer] Cardiology 2012;60:1581-98 CK, Total 124 0 - 200 unit/L [facility]ORY Specimen Anatomical Collection Method Collection Time Receive d Time (Source) Location / / Volume Laterality Blood specimen 07/06/2017 8:10 AM 017 8:23 (specimen) EST AM EST Resulting Agency Comment Spec In Lab Daphne Shahid MD CHEMISTRY ORDERABLES Performing Organization Address City/[facility]/[place] [address] Magnesium (07/06/2017 8:10 AM EST) P athologist Signature Magnesium 0.84 0.69 - 1.07 [facility] mmol/L [facility] Specimen Anatomical Collection Method Collection Time Receive d Time (Source) Location / / Volume Laterality Blood specimen 07/06/2017 8:10 AM 017 8:21 (specimen) EST AM EST Resulting Agency Comment Spec In Lab Daphne Shahid MD CHEMISTRY ORDERABLES Performing Organization Address City/[facility]/ZIP [facility] [place] [address] (ABNORMAL) Basic Metabolic Panel (non-fasting) (07/06/2017 8:10 AM EST) athologist Signature Glucose Lvl 199 65 - 199 [facility] mg/dL [facility] Comment: Diabetes: >=200 mg/dL plus symp toms BUN 16 10 - 20 mg/dL [facility] LAB[facility]ATORY Creatinine 1.04 0.80 - 1.50 mg/dL [facility] LABORATORY Sodium 141 135 - 145 [...] or in patients with acute kidney failure. http://[employer].Fablic/DHnkdep http://Thrill/DHMCnkf Specimen Anatomical Collection Method Collection Time Receive d Time (Source) Location / / Volume Laterality Blood specimen 07/06/2017 8:10 AM 017 8:21 (specimen) EST AM EST Resulting Agency Comment Spec In Lab Daphne Shahid MD CHEMISTRY ORDERABLES Performing Organization Address City/State/ZIP [place] [address] POCT Glucose (07/06/2017 7:34 AM EST) athologist Signature POC Glucose 198 65 - 199 [facility] mg/dL [facility] Comment: Supplemental ranges: <140 mg/dL before meals <180 mg/dL all other times of the day Specimen Anatomical Collection Method Collection Time Receive d Time (Source) Location / / Volume Laterality Blood specimen 07/06/2017 7:34 AM 017 7:34 (specimen) EST AM EST Daphne Shahid MD POINT OF CARE TEST ORDERABLE S Performing Organization Address City/State/[place] [address] POCT Glucose (07/06/2017 7:03 AM EST) P athologist Signature POC Glucose 181 65 - 199 [facility] mg/dL [facility] Comment: Supplemental ranges: <140 mg/dL before meals <180 mg/dL all other times of the day Specimen Anatomical Collection Method Collection Time Receive d Time (Source) Location / / Volume Laterality Blood specimen 07/06/2017 7:03 AM 017 7:03 (specimen) EST AM EST Daphne Shahid MD POINT OF CARE TEST ORDERABLE S Performing Organization Address City/State/[place] [address] XR Chest PA or [...] 65 - 199 [facility] mg/dL [facility] Comment: Supplemental ranges: <140 mg/dL before meals <180 mg/dL all other times of the day Specimen Anatomical Collection Method Collection Time Receive d Time (Source) Location / / Volume Laterality Blood specimen 07/06/2017 6:21 AM 017 6:21 (specimen) EST AM EST Daphne Shahid MD POINT OF CARE TEST ORDERABLE S Performing Organization Address City/State/ZIP [place] [address] POCT Glucose (07/06/2017 5:08 AM EST) athologist Signature POC Glucose 154 65 - 199 [facility] mg/dL [facility] Comment: Supplemental ranges: <140 mg/dL before meals <180 mg/dL all other times of the day Specimen Anatomical Collection Method Collection Time Receive d Time (Source) Location / / Volume Laterality Blood specimen 07/06/2017 5:08 AM 017 5:08 (specimen) EST AM EST Daphne Shahid MD POINT OF CARE TEST ORDERABLE S Performing Organization Address City/State/ZIP Code Phon e Number [address] POCT Glucose (07/06/2017 4:05 AM EST) athologist Signature POC Glucose 142 65 - 199 [facility] mg/dL [facility] Comment: Supplemental ranges: <140 mg/dL before meals <180 mg/dL all other times of the day Specimen Anatomical Collection Method Collection Time Receive d Time (Source) Location / / Volume Laterality Blood specimen 07/06/2017 4:05 AM 017 4:05 (specimen) EST AM EST Daphne Shahid MD POINT OF CARE TEST ORDERABLE S Performing Organization Address City/[facility]/[place] [address] POCT Glucose (07/06/2017 3:00 AM EST) athologist Signature POC Glucose 116 65 - 199 [facility] mg/dL [facility] Comment: Supplemental ranges: <140 mg/dL before meals <180 mg/dL all other times of the day Specimen Anatomical Collection Method Collection Time Receive d Time (Source) Location / / Volume Laterality Blood specimen 07/06/2017 3:00 AM 017 3:00 (specimen) EST AM EST Daphne Shahid MD POINT OF CARE TEST ORDERABLE S Performing Organization Address City/State/ZIP Code Phon e Number [address] Potassium (07/06/2017 2:20 AM EST) athologist Signature Potassium 3.9 3.5 - 5.0 [facility] mmol/L [facility] Comment: Please note: ??Patients with [...] City/State/ZIP Code Phon e Number [place] [phone] Differential, Automated (07/06/2017 2:20 AM EST) athologist Signature Neutrophils % 72.9 % [facility] LABORATORY Neutr Abs (ANC) 5.53 1.70 - [facility] 6.10 [facility] x10(3)/[facility] LABORATORY Lymphocytes % 16.4 % [facility] LABORATORY Lymphocytes Abs 1.2 0.9 - 3.2 [facility] x10(3)/[facility] LABORATORY Monocytes % 9.4 % [facility] LABORATORY Monocyte Abs 0.7 0.3 - 0.9 [facility] x10(3)/[facility] LABORATORY Eosinophils % 0.5 % [facility] LABORATORY Eosinophils Abs 0.0 0.0 - 0.4 [facility] x10(3)/[facility] LABORATORY Basophils % 0.4 % [facility] LABORATORY Basophils Abs 0.0 0.0 - 0.1 [facility] x10(3)/[facility] LABORATORY Immature Gran % 0.40 % WHITE [...] Melisa Gran Abs 0.03 0.00 - 0.04 x10(3)/[facility] LABORATORY Specimen Anatomical Collection Method Collection Time Receive d Time (Source) Location / / Volume Laterality Blood specimen 07/06/2017 2:20 AM 017 2:33 (specimen) EST AM EST Resulting Agency Comment Spec In Lab Daphne Shahid MD HEMATOLOGY ORDERABLES Performing Organization Address City/State/ZIP [place] [address] (ABNORMAL) Hemogram (07/06/2017 2:20 AM EST) Analysis Performed At Patho logist Time Signature WBC 7.6 4.0 - 9.5 [facility] x10(3)/[facility] LABORATORY RBC 4.52 (L) 4.58 - [facility] RYAN 5.54 [facility] x10(6)/[facility] LABORATORY Hemoglobin 13.4 (L) 13.7 - [facility] 16.5 gm/dL [facility] Hematocrit 39.7 (L) 40.5 - [facility] 48.5 % [facility] MCV 87.8 82.9 - [facility] 93.1 [facility] LABORATORY MCH 29.6 27.5 - [facility] 32.1 pg [facility] MCHC 33.8 32.0 - [facility] 35.7 gm/dL [facility] Platelets 189 145 - 357 [facility] x10(3)/[facility] LABORATORY RDWSD 45.6 (H) 36.0 - [facility] 45.0 [facility] LABORATORY RDWCV 14.3 (H) 11.4 - [facility] 13.8 % [facility] MPV 9.1 7.6 - 12.9 [facility] LABORATORY nRBC % Auto 0.0 % [facility] LABORATORY nRBC Abs Auto 0.000 0.000 - [facility] 0.000 [facility] x10(3)/[facility] LABORATORY Specimen Anatomical Collection Method Collection Time Receive d Time (Source) Location / / Volume Laterality Blood specimen 07/06/2017 2:20 AM 017 2:33 (specimen) EST AM EST Resulting Agency Comment Spec In Lab Daphne Shahid MD HEMATOLOGY ORDERABLES Performing Organization Address City/State/[place] [address] (ABNORMAL) APTT (07/06/2017 2:20 AM EST) P athologist Signature PTT 52 (H) 25 - 35 sec [facility] Comment: The recommended therapeutic range for fu ll dose, unfractionated heparin at [facility] is 80 ? 114 seconds. [...] Shahid MD HEMATOLOGY ORDERABLES Performing Organization Address City/[facility]/ZIP [facility] Phon e Number [address] POCT Glucose (07/06/2017 2:20 AM EST) athologist [employer] POC Glucose 115 65 - 199 [facility] mg/dL [facility] Comment: Supplemental ranges: <140 mg/dL before meals <180 mg/dL all other times of the day Specimen Anatomical Collection Method Collection Time Receive d Time (Source) Location / / Volume Laterality Blood specimen 07/06/2017 2:20 AM 017 2:20 (specimen) EST AM EST Daphne Shahid MD POINT OF CARE TEST ORDERABLE S Performing Organization Address City/[facility] [place] [address] (ABNORMAL) Cardiac Enzymes (LEB/CGP) (07/06/2017 2:20 AM EST) athologist Signature Troponin-T 2.13 (H) 0.00 - [facility] 0.00 ng/mL [facility] Comment: The 99th percentile for Troponin T is le ss than 0.01 ng/mL, any detectable cTnT concentration using this assay should be considered elevated. According to the third universal definit ion of myocardial infarction the following criteria with a clinical prese ntation consistent with acute myocardial ischemia meets the diagnosis for a myocardial infarction (OK). Detection of a rise and/or fall of [...] additional sample may be indicated. Reference: Third [place] Definition of Myocardial Infarction. Journal of the [place] College of Cardiology 2012;60:1581-98 CK, Total 129 [...] City/State/ZIP Code Phon e Number [place] [phone] (ABNORMAL) Hemoglobin A1c (07/06/2017 2:20 AM EST) Analysis Performed At Patho logist Time Signature Hemoglobin A1C 6.8 (H) 4.3 - 5.6 [facility] LABORATORY [...] Mellitus, Diabetes Care 2013; 36: Suppl. 1, S67-00 Est Avg Gluc See note mg/dL [facility] [...] into estimated average glucose values. ??Diabetes Care 2008:31(8):0959-6949. Specimen Anatomical Collection Method Collection Time Receive d Time (Source) Location / / Volume Laterality Blood specimen 07/06/2017 2:20 AM 017 2:34 (specimen) EST AM EST Resulting Agency Comment Spec In Lab Daphne Shahid MD CHEMISTRY ORDERABLES Performing Organization Address City/State/ZIP Code Phon e Number [place] [phone] (ABNORMAL) Lipid Panel (07/06/2017 2:20 AM EST) [facility] Method Time Signature Chol, Total 150 <=239 [place] mg/dL [facility] LABORATORY Triglycerides 129 <=199 [place] mg/dL [facility] LABORATORY HDL 32 (L) >=40 [place] mg/dL [facility]ORY LDL Cholesterol 92 <=190 [place] mg/dL [facility]ORY Chol/HDL Ratio 4.7 ratio [facility] LABORATORY Lipid See Note [facility] Interpretation [facility] Comment: Lipid management should be guided by a p atient? s ASCVD risk, goals and preferences. ACC/AHA Guidelines recommend high intens ity statin if clinical ASCVD or LDL greater than or equal to 190 mg/dL. http://Brentwood Media Groupurl.com/UBX-YVA-Twrjwasqr Adults aged 40-75 with LDL 70-189 mg/dL should have their 10 year ASCVD risk estimated with the ACC/AHA ASCVD risk es timator http://tools.acc.org/BMMGM-Yjsy-Gjydyliv r/ Statin should be discussed if risk [...] Shahid MD CHEMISTRY ORDERABLES Performing Organization Address City/[facility]/ZIP Code Phon e Number [address] POCT Glucose (07/06/2017 1:09 AM EST) athologist Signature POC Glucose 121 65 - 199 [facility] mg/dL [facility] Comment: Supplemental ranges: <140 mg/dL before meals <180 mg/dL all other times of the day Specimen Anatomical Collection Method Collection Time Receive d Time (Source) Location / / Volume Laterality Blood specimen 07/06/2017 1:09 AM 017 1:09 (specimen) EST AM EST Daphne Shahid MD POINT OF CARE TEST ORDERABLE S Performing Organization Address City/[facility]/ZIP Code Phon e Number [address] POCT Glucose (07/06/2017 12:06 AM EST) athologist Signature POC Glucose 147 65 - 199 [facility] mg/dL [facility] Comment: Supplemental ranges: <140 mg/dL before meals <180 mg/dL all other times of the day Specimen Anatomical Collection Method Collection Time Receive d Time (Source) Location / / Volume Laterality Blood specimen 07/06/2017 12:06 7 (specimen) AM EST 12:06 AM EST Daphne Shahid MD POINT OF CARE TEST ORDERABLE S Performing Organization Address City/State/[place] [address] (ABNORMAL) POCT Glucose (07/05/2017 10:56 PM EST) P athologist Signature POC Glucose 200 (H) 65 - 199 [place] [facility] mg/dL [facility] Comment: Supplemental ranges: <140 mg/dL before meals <180 mg/dL all other times of the day Specimen Anatomical Collection Method Collection Time Receive d Time (Source) Location / / Volume Laterality Blood specimen 07/05/2017 10:56 7 (specimen) PM EST 10:56 PM EST Daphne Shahid MD POINT OF CARE TEST ORDERABLE S Performing Organization Address City/State/[place] [address] (ABNORMAL) POCT Glucose (07/05/2017 10:05 PM EST) P athologist Signature POC Glucose 225 (H) 65 - 199 [place] mg/dL [facility] Comment: Supplemental ranges: <140 mg/dL before meals <180 mg/dL all other times of the day Specimen Anatomical Collection Method Collection Time Receive d Time (Source) Location / / Volume Laterality Blood specimen 07/05/2017 10:05 7 (specimen) PM EST 10:05 PM EST Daphne Shahid MD POINT OF CARE TEST ORDERABLE S Performing Organization Address City/State/[place] [address] (ABNORMAL) POCT Glucose (07/05/2017 9:02 PM EST) P athologist Signature POC Glucose 301 (H) 65 - [address] mg/dL [facility] Comment: Supplemental ranges: <140 mg/dL before meals <180 mg/dL all other times of the day Specimen Anatomical Collection Method Collection Time Receive d Time (Source) Location / / Volume Laterality Blood specimen 07/05/2017 9:02 PM 017 9:02 (specimen) EST PM EST Daphne Shahid MD POINT OF CARE TEST ORDERABLE S Performing Organization Address City/State/ZIP Code Phon e Number [place] [id number] HOSPITAL LABORATORY Drive XR Chest PA or [...] 474 ms MUSE SYSTEM (Bezet) Calculated P [place] 50 degrees MUSE SYSTEM Calculated R [place] -28 degrees MUSE SYSTEM Calculated T [place] 90 degrees MUSE SYSTEM INTERPRETATION Sinus tachycardia [...] (H) 1.70 - [facility] 6.10 [facility] x10(3)/[facility] L LABORATORY Lymphocytes % 7.0 % [facility] LABORATORY Lymphocytes Abs 0.7 (L) 0.9 - 3.2 [facility] x10(3)/[facility] LABORATORY Monocytes % 3.7 % [facility] LABORATORY Monocyte Abs 0.4 0.3 - 0.9 [facility] x10(3)/[facility] LABORATORY Eosinophils % 0.1 % [facility] LABORATORY Eosinophils Abs 0.0 0.0 - 0.4 [facility] x10(3)/[facility] LABORATORY Basophils % 0.2 % [facility] LABORATORY Basophils Abs 0.0 0.0 - 0.1 [facility] x10(3)/[facility] LABORATORY Immature Gran % 0.60 % WHITE [...] Gran Abs 0.06 (H) 0.00 - 0.04 x10(3)/[facility] LABORATORY Specimen Anatomical Collection Method Collection Time Receive d Time (Source) Location / / Volume Laterality Blood specimen 07/05/2017 8:20 PM 017 8:27 (specimen) EST PM EST Resulting Agency Comment Spec In Lab Daphne Shahid MD HEMATOLOGY ORDERABLES Performing Organization Address City/State/ZIP Code Phon e Number [place] [phone] HOSPITAL LABORATORY Drive (ABNORMAL) Hemogram (07/05/2017 8:20 PM EST) Analysis Performed At Patho logist Time Signature WBC 10.3 (H) 4.0 - 9.5 [facility] x10(3)/[facility] LABORATORY RBC 4.64 4.58 - [facility] RYAN 5.54 [facility] x10(6)/[facility] LABORATORY Hemoglobin 14.1 13.7 - [facility] 16.5 gm/dL [facility] Hematocrit 40.8 40.5 - [facility] RYAN 48.5 % [facility] MCV 87.9 82.9 - [facility] 93.1 [facility] LABORATORY MCH 30.4 27.5 - [place] 32.1 pg [facility] MCHC 34.6 32.0 - [facility] 35.7 gm/dL [facility] Platelets 204 145 - 357 [facility] x10(3)/[facility] LABORATORY RDWSD 46.1 (H) 36.0 - [facility] 45.0 [facility] LABORATORY RDWCV 14.5 (H) 11.4 - [facility] RYAN 13.8 % [facility] MPV 9.7 7.6 - 12.9 [facility] LABORATORY nRBC % Auto 0.0 % [facility] LABORATORY nRBC Abs Auto 0.000 0.000 - [facility] 0.000 [facility] x10(3)/[facility] LABORATORY Specimen Anatomical Collection Method Collection Time Receive d Time (Source) Location / / Volume Laterality Blood specimen 07/05/2017 8:20 PM 017 8:27 (specimen) EST PM EST Resulting Agency Comment Spec In Lab Daphne Shahid MD HEMATOLOGY ORDERABLES Performing Organization Address City/[facility]/ZIP [facility] Phon e Number [address] APTT (07/05/2017 8:20 PM EST) athologist Signature PTT 32 25 - 35 sec [facility] Comment: The recommended therapeutic range for fu ll dose, unfractionated heparin at [facility] is 80 ? 114 seconds. [...] Shahid MD HEMATOLOGY ORDERABLES Performing Organization Address City/[facility] Phon e Number [address] (ABNORMAL) Cardiac Enzymes (LEB/CGP) (07/05/2017 8:20 PM EST) athologist Signature Troponin-T 2.11 (H) 0.00 - [facility] 0.00 ng/mL [facility] Comment: The 99th percentile for Troponin T is le ss than 0.01 ng/mL, any detectable cTnT concentration using this assay should be considered elevated. According to the third universal definit ion of myocardial infarction the following criteria with a clinical prese ntation consistent with acute myocardial ischemia meets the diagnosis for a myocardial infarction (OK). Detection of a rise and/or fall of [...] additional sample may be indicated. Reference: Third [place] Definition of Myocardial Infarction. Journal of the [place] College of [employer]iology 2012;60:1581-98 CK, Total 149 0 - 200 unit/L [facility]OR[facility]ORY Specimen Anatomical Collection Method Collection Time Receive d Time (Source) Location / / Volume Laterality Blood specimen 07/05/2017 8:20 PM 017 8:27 (specimen) EST PM EST Resulting Agency Comment Spec In Lab Daphne Shahid MD CHEMISTRY ORDERABLES Performing Organization Address City/[facility]/[place]IP [place] [address] (ABNORMAL) Magnesium (07/05/2017 8:20 PM EST) P athologist Signature Magnesium 0.68 (L) 0.69 - 1.07 [facility] mmol/L [facility] Specimen Anatomical Collection Method Collection Time Receive d Time (Source) Location / / Volume Laterality Blood specimen 07/05/2017 8:20 PM 017 8:27 (specimen) EST PM EST Resulting Agency Comment Spec In Lab Daphne Shahid MD CHEMISTRY ORDERABLES Performing Organization Address City/State/[place] [address] (ABNORMAL) Basic Metabolic Panel (non-fasting) (07/05/2017 8:20 PM EST) P athologist Signature Glucose Lvl 321 (H) 65 - 199 [facility] mg/dL [facility] Comment: Diabetes: >=200 mg/dL plus symp toms BUN 20 10 - 20 mg/dL [facility] Creatinine 1.12 0.80 - 1.50 mg/dL [facility] Sodium 139 135 - 145 mmol/L [facility] Potassium 3.8 3.5 - 5.0 mmol/L [facility] [...] or in patients with acute kidney failure. http://[employer].Fablic/DHnkdep http://Thrill/DHnkf Specimen Anatomical Collection Method Collection Time Receive d Time (Source) Location / / Volume Laterality Blood specimen 07/05/2017 8:20 PM 017 8:27 (specimen) EST PM EST Resulting Agency Comment Spec In Lab Daphne Shahid MD CHEMISTRY ORDERABLES Performing Organization Address City/State/ZIP [place] [address] (ABNORMAL) POCT Glucose (07/05/2017 7:32 PM EST) P athologist Signature POC Glucose 296 (H) 65 - 199 [facility] mg/dL [facility] Comment: Supplemental ranges: <140 mg/dL before meals <180 mg/dL all other times of the day Specimen Anatomical Collection Method Collection Time Receive d Time (Source) Location / / Volume Laterality Blood specimen 07/05/2017 7:32 PM 017 7:32 (specimen) EST PM EST Daphne Shahid MD POINT OF CARE TEST ORDERABLE S Performing Organization Address City/State/ZIP Code [place] [address] CARDIAC CATHETERIZATION (07/05/2017 6:47 PM EST) Specimen (Source) Anatomical Location Collection Method / Collectio n Time Received Time / Laterality Volume Narrative CARDIOMAC SYSTEM - 07/05/2017 7:27 PM ES T ?[facility] ? Cardiac Cathete rization/Intervention Report ? Patient Name: Natalya, Gregory ? Procedure Date: 07/05/2017 ? A #: [id number] ? Primary Physician: Jet Mckenna ? Case #: [id number] ? File Name: [id number] ? Catheterization Order Number: [id number] ? [facility] ? Final Report [place], [place] ? Patient Name: ? Gregory Natalya ?ID#: ?[id number] ? : ?1945 ? Procedure Date: ? [...] presented with: non -STEMI (w/i 7 days). [place] ?[employer] angina c lass was IV. [...] site angio graphy and IABP insertion in cathode builder. ? Jet Mckenna M.D. ? Electronically Signed by: Jet bunch MKd. ? Report Finalized: 07/05/2017 ??19:23 ? Report Last Ammended: 10/26/2017 ??10:29 ? Procedure Note Clarisa, Jet T, MD - 10/26/2017Formatt ing of this note might be different from the original. [facility] Cardiac Catheterization/Intervention Re port Patient Name: Gregory Hoang Procedure Date: 07/05/2017 A #: [id number] Primary Physician: Jet Mckenna Case #: [id number] File Name: [id number] Catheterization Order Number: [id number] [facility] Final Report [place], [place] Patient Name: Gregory Hoang ID#: [id number] : 1945 Procedure Date: July 05, [...] presented with: non-STEMI ( w/i 7 days). [place] [employer] angina class was IV. No [...] site angiograph y and IABP insertion in cathode builder. Jet Mckenna M.D. Electronically Signed by: Jet [...] Veda ? (Age): 1945(72y) Med Rec#: ? [id number] ?Sex: ?M ? Site Loc: ? [facility] ?Ht / Wt: ??173(cm)/86(kg) Pt. Loc: ?[facility] ? BSA: ?2 Study Date: ?? 07/05/2017 ?Pt. Type: Inpatient Tape: ? Referring: Daphne Shahid ([id number]) Referring: MANDA ALCANTAR Reading: Blade Preston ([id number]) Mental Measurements Teacher: Dayami Paula BA, [facility] Diagnosis: *ICD-10-PCS Non-ST elevation (NSTEMI) m yocardial [...] E-wave Vmax ?0.8 ?m/sec ? MV deceleration [id number] ?msec ? MV A-wave Vmax ?0.8 ?m/sec [...] ? Mid-Inferior ?Akinetic ? Mid-Inferoseptal ?Hypokinetic ? Dewart-Septal ? Akinetic ? Dewart-Anterior ? Hypokinetic ? Dewart-Lateral ?Hypokinetic ? Dewart-Inferior ? Akinetic ? Dewart-Tip ?Akinetic ? This report has been electronically sign ed by: _ Blade Preston MD ? 07/06/2017 08 :53:15 Images reviewed and interpretation verif ied [facility] Procedure Note Blade Preston MD - 07/06/2017Formatt ing of this note might be different from the original. Procedure: Transthoracic Echocardiogram Patient: NATALYA MCBRIDE(Age): [birth year]72y) Med Rec#: [id number] Sex: M Site Loc: [facility] Ht / Wt: 173(cm)/86(kg) Pt. Loc: U BSA: 2 Study Date: 07/05/2017 Pt. Type: Inpatie nt Tape: Referring: Daphne Shahid ([id number]) Referring: MANDA ALCANTAR Reading: Blade Preston ([id number]) Mental Measurements Teacher: Dayami Paula BA, [facility] Diagnosis: *ICD-10-PCS Non-ST elevation (NSTEMI) m yocardial [...] MV E-wave Vmax 0.8 m/sec MV deceleration [id number] msec MV A-wave Vmax 0.8 m/sec MV [...] Hypokinetic Mid-Posterolateral Hypokinetic Mid-Inferior Akinetic Mid-Inferoseptal Hypokinetic Dewart-Septal Akinetic Dewart-Anterior Hypokinetic Dewart-Lateral Hypokinetic Dewart-Inferior Akinetic Dewart-Tip Akinetic This report has been electronically sign ed by: _ Bldae Preston MD 07/06/2017 08:53:15 Images reviewed and interpretation verif ied [facility] Daphne Shahid MD ECHO ORDERABLES Performing Organization Address City/State/ZIP Code Phon e Number [facility] Differential, Automated (07/05/2017 4:55 PM EST) athologist Signature Neutrophils % 77.0 % [facility] Neutr Abs (ANC) 5.26 1.70 - [facility] 6.10 [facility] x10(3)/[facility] LABORATORY Lymphocytes % 13.3 % [facility] Lymphocytes Abs 0.9 0.9 - 3.2 [facility] x10(3)/[facility] LABORATORY Monocytes % 8.2 % [facility] Monocyte Abs 0.6 0.3 - 0.9 [facility] x10(3)/[facility] LABORATORY Eosinophils % 0.7 % [facility]ORY Eosinophils Abs 0.0 0.0 - 0.4 [facility] x10(3)/[facility] LABORATORY Basophils % 0.4 % [facility] Basophils Abs 0.0 0.0 - 0.1 [facility] x10(3)/[facility] LABORATORY Immature Gran % 0.40 % WHITE [...] Melisa Gran Abs 0.03 0.00 - 0.04 x10(3)/[facility] LABORATORY Specimen Anatomical Collection Method Collection Time Receive d Time (Source) Location / / Volume Laterality Blood specimen 07/05/2017 4:55 PM 017 5:24 (specimen) EST PM EST Resulting Agency Comment Spec In Lab Daphne Shahid MD HEMATOLOGY ORDERABLES Performing Organization Address City/State/ZIP [place] [address] (ABNORMAL) Hemogram (07/05/2017 4:55 PM EST) Analysis Performed At Patho logist Time Signature WBC 6.8 4.0 - 9.5 [facility] RYAN x10(3)/[facility] LABORATORY RBC 4.67 4.58 - [place] 5.54 [facility] x10(6)/[facility] LABORATORY Hemoglobin 14.0 13.7 - [facility] 16.5 gm/dL [facility] Hematocrit 41.0 40.5 - [facility] 48.5 % [facility] MCV 87.8 82.9 - [facility] 93.1 [facility] LABORATORY MCH 30.0 27.5 - [place] 32.1 pg [facility] MCHC 34.1 32.0 - [facility] RYAN 35.7 gm/dL [facility] Platelets 197 145 - 357 [facility] x10(3)/[facility] LABORATORY RDWSD 46.4 (H) 36.0 - [place] 45.0 [facility] LABORATORY RDWCV 14.5 (H) 11.4 - [facility] RYAN 13.8 % [facility] MPV 9.7 7.6 - 12.9 [facility] nRBC % Auto 0.0 % [facility] LABORATORY nRBC Abs Auto 0.000 0.000 - [facility] RYAN 0.000 [facility] x10(3)/[facility] LABORATORY Specimen Anatomical Collection Method Collection Time Receive d Time (Source) Location / / Volume Laterality Blood specimen 07/05/2017 4:55 PM 017 5:24 (specimen) EST PM EST Resulting Agency Comment Spec In Lab Daphne Shahid MD HEMATOLOGY ORDERABLES Performing Organization Address City/State/Z[place] [address] (ABNORMAL) Cardiac Enzymes (LEB/CGP) (07/05/2017 4:55 PM EST) athologist Signature Troponin-T 1.69 (H) 0.00 - [place] 0.00 ng/mL [facility] Comment: The 99th percentile for Troponin T is le ss than 0.01 ng/mL, any detectable cTnT concentration using this assay should be considered elevated. According to the third universal definit ion of myocardial infarction the following criteria with a clinical prese ntation consistent with acute myocardial ischemia meets the diagnosis for a myocardial infarction (OK). Detection of a rise and/or fall of [...] additional sample may be indicated. Reference: Third [place] Definition of Myocardial Infarction. Journal of the [place] College of Cardiology 2012;60:1581-98 CK, Total 191 [...] Address City/State/ZIP [place] [address] (ABNORMAL) pro-Brain Natriuretic Peptide (07/05/2017 4:55 PM EST) P athologist Signature ProBNP 1,598 (H) <=125 [facility] pg/mL [facility] Specimen Anatomical Collection Method Collection Time Receive d Time (Source) Location / / Volume Laterality Blood specimen 07/05/2017 4:55 PM 017 5:24 (specimen) EST PM EST Resulting Agency Comment Spec In Lab Daphne Shahid MD CHEMISTRY ORDERABLES Performing Organization Address City/State/ZIP Code Phon e Number [address] Magnesium (07/05/2017 4:55 PM EST) athologist Signature Magnesium 0.78 0.69 - 1.07 [facility] mmol/L [facility] Specimen Anatomical Collection Method Collection Time Receive d Time (Source) Location / / Volume Laterality Blood specimen 07/05/2017 4:55 PM 017 5:24 (specimen) EST PM EST Resulting Agency Comment Spec In Lab Daphne Shahid MD CHEMISTRY ORDERABLES Performing Organization Address City/[facility] Code Phon e Number [address] (ABNORMAL) Basic Metabolic Panel (non-fasting) (07/05/2017 4:55 PM EST) athologist Signature Glucose Lvl 230 (H) 65 - 199 [facility] mg/dL [facility] Comment: Diabetes: >=200 mg/dL plus symp toms BUN 19 10 - 20 mg/dL [facility] Creatinine 1.04 0.80 - 1.50 mg/dL [facility] Sodium 142 135 - 145 mmol/L [facility] Potassium 4.0 3.5 - 5.0 mmol/L [facility] Estimated GFR >60 >=60 [facility] Comment: The reported eGFR should be multiplied b y 1.2 for patients. The MDRD is not an appropriate measure o f renal function for patients with body mass extremes or in patients with acute kidney failure. http://Thrill/DHnkdep http://Thrill/DHMCnkf Specimen Anatomical Collection Method Collection Time Receive d Time (Source) Location / / Volume Laterality Blood specimen 07/05/2017 4:55 PM 017 5:24 (specimen) EST PM EST Resulting Agency Comment Spec In Lab Daphne Shahid MD CHEMISTRY ORDERABLES Performing Organization Address [facility] Phon e Number [address] (ABNORMAL) APTT (07/05/2017 4:55 PM EST) P athologist Signature PTT 41 (H) 25 - 35 sec [facility] Comment: The recommended therapeutic range for fu ll dose, unfractionated heparin at [facility] is 80 ? 114 seconds. [...] Shahid MD HEMATOLOGY ORDERABLES Performing Organization Address City/[facility]/ZIP [facility] [place] [address] (ABNORMAL) POCT Glucose (07/05/2017 4:53 PM EST) P athologist Signature POC Glucose 208 (H) 65 - 199 [facility] mg/dL [facility] Comment: Supplemental ranges: <140 mg/dL before meals <180 mg/dL all other times of the day Specimen Anatomical Collection Method Collection Time Receive d Time (Source) Location / / Volume Laterality Blood specimen 07/05/2017 4:53 PM 017 4:53 (specimen) EST PM EST Daphne Shahid MD POINT OF CARE TEST ORDERABLE S Performing Organization Address City/State/ZIP [place] [address] EKG 12 Lead (07/05/2017 4:32 PM EST) Component Value Ref Range Test Analysis Performed Pathologis t Method Time At Signature Ventricular rate 97 BPM MUSE SYSTEM Atrial Rate 97 BPM MUSE SYSTEM P-R Interval 148 ms MUSE SYSTEM QRS Duration 96 ms MUSE SYSTEM Q-T Interval 364 ms MUSE SYSTEM QTC Calculated 462 ms MUSE SYSTEM (Bezet) Calculated P [place] 48 degrees MUSE SYSTEM Calculated R [place] -33 degrees MUSE SYSTEM Calculated T [place] 98 degrees MUSE SYSTEM INTERPRETATION Normal sinus [...] post-op day 1 in the AM Give SD if unable to take PO, Routine Given [...] post-op day 1 in the AM Give SD if unable to take PO, Routine atorvastatin [...] post-op day 1 in the AM Give SD if unable to take PO
Routine Group [...]
Routine documented in this encounter Care Teams Forestry Aid Relationship Specialty Start Date End Date Lovely Vicente MD PCP - General 04/16/[address] [place] [address] documented as of this encounter
--- OUTSIDE RECORDS SUMMARY | 2022-02-23 08:59 | XMS_ITS | Encounter Summary ---
:1945 [place] [address] Care Team Providers Name Role Phone Lovely Vicente MD Primary Care Provider Reason for Visit Auth/Cert Specialty Diagnoses / Procedures Referred By Contact Refer red To Contact Diagnoses STEMI (ST elevation myocardial infarction) NSTEMI STEMI Procedures CARDIAC CATHETERIZATION NAYE IPI Referral ID Status Reason Start Date Expiration Date Visits Requ ested Visits Authorized [id number] 1 1 Encounter Details Date Type Department Care Team Description 07/07/2017 Anesthesia Event Main Operating Room Yifan Jaime MD [facility] [place] [address] [facility] Ginny Murray MD [facility] [place] [address] [facility] [place] [address] Anesthesia Record Procedure Summary Procedure Name [...] 2342 LDA Cath/EP Sheath 07/05/17; 0606; 8 Malian 07/05/17 0606 by [id number] by (Fr); Right; Femoral [place]iana [place], Yane Cook, RN PIV 07/05/17; 1720; median 07/05/17 1720 by 07/11/17 2355 by vein (underside of arm), Prior, Yanet Maza, VAMSI Crum, Angela Gomes, left; 18 gauge; removed MEDICARE COMPLIANCE AUDITOR per policy/procedure; 07/11/17; 2355 Intra-Aortic Balloon 07/05/17; [...] Miller, Carrie L, Type: Cuffed; ETT Size: STEAK TENDERIZER MACHINE 8 mm; Santiago Blade: 2; Notes: Asleep, [...] VIP; 8 Fr; CVC Protocol RN Performed; gertrduis; 07/09/17; 0945 CVC Single/Intro. 07/07/17; 1423; internal [...] Murray MD - 07/08/2017 5:08 PM EST [facility] Department of Anesthesiology Post-procedure Note Patient: Don Fatima Procedure Summary Date Anesthesia Start Anesthesia Stop Room / Location 07/07/[address] [facility] MAIN OR Procedure Diagnosis Surgeon Responsible Provider @CABG, USING ARTERIAL GRAFT;SINGLE ARTERIAL GRAFT (WRVU 33.75) (N/A Chest); @CABG, TWO VENOUS GRAFTS & ARTERIAL GRAFT (WRVU 7.93) (N/A Chest); ENDOSCOPIC HARVEST VEIN(S) FOR CABG (WRVU 0.31) (Right Leg) (CAD) Yuan Freitas MD Hartman, Gregg S, MD All Anesthesia Providers: Anesthesiologist: Yifan Perez MD Grinder Set Up Operator Centerless: Ginny Murray MD Most Recent Vitals: 07/08/17 [...] [facility] ENDOSCOPY ??? PRO THYROIDECTOMY 03/28/2013 THYROIDECTOMY, TOTAL OR COMPLETE performed by Manny Mcknight MD at [facility] MAIN OR Social History Substance Use [...] Nobles MD [facility] [address] [place], [place] [address] (Wo rk) [...] mg documented in this encounter Care Teams Profiling Machine Set Up Operator Tool Relationship Specialty Start Date End Date Lovely Vicente MD PCP - General 04/16/[address] [place] [address] documented as of this encounter
--- OUTSIDE RECORDS SUMMARY | 2022-02-23 09:01 | XMS_ITS | Encounter Summary ---
:1945 Author Organization [facility] [place] [address] Care Team Providers Name Role Phone Lovely Vicente MD Primary Care Provider Reason for Visit Reason Comments Skin Check Encounter Details Date Type Department Care Team Description 04/16/2015 Follow-Up Dermatology at [facility] x of melanoma of skin; Abdelrahman HOOPER MD Multiple benign nevi [address] [place] [address] [facility]DER[facility] [place], [place] [address] (Wo rk) Social History Tobacco [...] Diagnostic, Drum (ACCU-CHEK COMPACT TEST) Strip by [facility].(Non- Drug; Combo Route) route 2 times daily. [...] encounter. Rigoberto Garcia MD Section of Dermatology [facility] documented in this encounter Plan of Treatment Upcoming Encounters Date Type Specialty Care Team Description 03/26/2022 Office Visit Cardiology Vitaliy Nobles MD [facility] ER CARDIOLOGY [place], [place] [address] (Wo rk) documented as of this encounter Visit Diagnoses Diagnosis Hx of melanoma of skin Personal history of malignant melanoma o f skin Multiple benign nevi Benign neoplasm of skin, site unspecifie d documented in this encounter Care Teams Welder Manufacture Relationship Specialty Start Date End Date Lovely Vicente MD PCP - General 04/16/[address] [place] [address] documented as of this encounter
--- OUTSIDE RECORDS SUMMARY | 2022-02-23 09:01 | XMS_ITS | Encounter Summary ---
:1945 Author Organization [facility] [place] [address] Care Team Providers Name Role Phone Angela Holliday APRN Primary Care Provider Encounter Details Date Type Department Care Team Description 03/30/2013 Telephone General Surgery at [facility] Cliff Nevarez, [place] [address] Social History Tobacco Use Types Packs/Day [...] Cardiology Vitaliy Nobles MD [facility] ER CARDIOLOGY [place], [place] [address] (Wo rk) documented as of this encounter Visit Diagnoses Not on filedocumented in this encounter Care Teams Hand Laster Relationship Specialty Start Date End Date Angela Holliday APRN PCP - General 01/25/13 04/15/[address] [place] [address] documented as of this encounter
--- OUTSIDE RECORDS SUMMARY | 2022-02-23 09:01 | XMS_ITS | Encounter Summary ---
:1945 Author Organization [facility] [place] [address] Care Team Providers Name Role Phone Lovely Vicente MD Primary Care Provider Reason for Visit Reason Comments Skin Check Encounter Details Date Type Department Care Team Description 06/05/2016 Office Visit Dermatology at [facility] istory of melanoma; Abdelrahman HOOPER MD Seborrheic keratosis; [address] [facility] [place] (actinic keratosis); [place] [address] Multiple nevi; [phone] [facility] [address]-DERMATOLGY [place], [place] [address] Social History Tobacco Use Types [...] back in 2005 ?? Psoriasis HPI Don Ftaima is a 71 y.o. year old male. [...] Diagnostic, Drum (ACCU-CHEK COMPACT TEST) Strip by [facility].(Non- Drug; Combo Route) [...] encounter. Rigoberto Garcia MD Section of Dermatology [facility] documented in this encounter Plan of Treatment Upcoming Encounters Date Type Specialty Care Team Description 03/26/2022 Office Visit Cardiology Vitaliy Nobles MD [facility] ER DR CARDIOLOGY [place] [id number] (Wo rk) documented as of this encounter Visit Diagnoses Diagnosis History of melanoma Personal history of malignant melanoma o f skin Seborrheic keratosis Other seborrheic keratosis [place] (actinic keratosis) Actinic keratosis Multiple nevi Benign neoplasm of skin, site unspecifie d Scar Scar condition and fibrosis of skin documented in this encounter Care Teams Document Manager Relationship Specialty Start Date End Date Lovely Vicente MD PCP - General 04/16/[address] [place] [address] documented as of this encounter
--- OUTSIDE RECORDS SUMMARY | 2022-02-23 09:01 | XMS_ITS | Encounter Summary ---
:1945 Author Organization [facility] [place] [address] Care Team Providers Name Role Phone Angela Holliday APRN Primary Care Provider Encounter Details Date Type Department Care Team Description 01/16/2014 Surgery Gastroenterology at [facility] Nohemi Jaimes, COLONOSCOPY, [facility] Jorge mcnamara MD [place], [place] [address] [facility] BY SNARE ([facility] [phone] DR Cintron) GASTROENTEROLOGY DEPT. [place], [place] [address] Social History Tobacco Use Types [...] you need to be checked. Wednesday[facility]Wednesday Clinic [phone] 8a-5p Same Day Endo [phone] 7a-8p Otherwise contact [phone] and ask to speak to the hvac installation technician disaster recovery consultant Follow up care is a shelton [...] Operative Note Patient Name: Gregory Fatima : [id number] MR#: [id number] Case Date: 01/16/2014 Surgeon: Surgeon(s) and Role: * Nohemi Jaimes MD - Primary Preoperative diagnosis: 5 yr surv. Full procedure note is documented under the Procedure section of eDH. documented in this encounter Plan of Treatment Upcoming Encounters Date Type Specialty Care Team Description 03/26/2022 Office Visit Cardiology Vitaliy Nobles MD [facility] CARDIOLOGY [place] [address] (Wo rk) documented as of this encounter [...] Surgical Pathology Report (01/16/2014 9:53 AM EDT) [facility] Method Time Signature Surgical CERNER Pathology ? [facility] Report ? Provider: ?? SHREE, NOHEMI Gonzalez ?Pt. Name: ?? SURINDER RT, GREGORY E ? Acc #: ?[id number] ?Pt. MRN: ?[id number] ? Col Date: ?? 4 ? /Sex: [...] Address City/[facility]/ZIP Code Phon e Number [address] CERNER MILLENNIUM Specimen to [...] PATHOLOGY/CYTOLOGY ORDERABLE S Performing Organization Address City/[facility] [place] [address] CERNER MILLENNIUM Specimen to [...] MD PATHOLOGY/CYTOLOGY ORDERABLE S Performing Organization Address [facility]/[place] [address] [facility] COL[facility] (01/16/2014 7:25 AM EDT) [facility] Method Time Signature COLONOSCOPY [facility] PROVATION Endoscopy Patient Name: Gregory Fatima ? Procedure Date: 01/16/2014 7:25 AM ? N: [id number] ? Date of : 1945 ? Age: 68 ? Order #: [id number] ? Procedure: ? Colonoscopy Indications: ? High [...] Laterality 01/16/2014 7:25 AM EDT Angela Holliday INSPECTOR [employer] SURGICAL ORDERABLES Performing Organization Address City/State/ZIP [...] Routine documented in this encounter Care Teams Page Makeup System Operator Relationship Specialty Start Date End Date Angela Holliday APRN PCP - General 01/25/13 04/15/[address] [place] [address] documented as of this encounter
--- OUTSIDE RECORDS SUMMARY | 2022-02-23 09:01 | XMS_ITS | Encounter Summary ---
:1945 Author Organization [facility] [place] [address] Care Team Providers Name Role Phone MiyaAngela STACIE Primary Care Provider Encounter Details Date Type Department Care Team Description 04/26/2014 Office Visit Endocrinology at [facility] Albertina Palmer, Papillary thyroid [facility] MD [place] [address] CENTER [phone] ENDOCRINOLOGY DEPT [place] [address] Social History Tobacco Use Types Packs/Day Years [...] on [place]. Rosalind Palmer Endocrine Staff Physician [facility] Rosalind Palmer MD - 04/26/2014 8:39 AM [...] one yr Rosalind Palmer Endocrine Staff Physician [facility] documented in this encounter Plan of Treatment Upcoming Encounters Date Type Specialty Care Team Description 03/26/2022 Office Visit Cardiology Vitaliy Nobles MD [facility] ER DR [place], [place] [address] (Wo rk) documented as of [...] athologist Signature Thyroglobulin <0.4 <=54.9 CERNER ng/mL [facility] Comment: [...] DALLAS et al. J Clin Endo Metab 1999;84:1073-6502). Assay performed using the DPC Immulite T [...] City/State/ZIP Code Phon e Number [place] [phone]OS[address] RAKESH MILLENNIUM (ABNORMAL) TSH [...] Organization Address City/State/[place] [address] [facility] documented in this encounter Visit Diagnoses Diagnosis Papillary thyroid carcinoma Malignant neoplasm of thyroid gland documented in this encounter Care Teams Clerical Stock Inspector Relationship Specialty Start Date End Date Angela Holliday APRN PCP - General 01/25/13 04/15/[address] [place] [address] documented as of this encounter
--- OUTSIDE RECORDS SUMMARY | 2022-02-23 09:01 | XMS_ITS | Encounter Summary ---
:1945 Author Organization [facility] [place] [address] Care Team Providers Name Role Phone Lovely Vicente MD Primary Care Provider Reason for Visit Reason Onset Date Comments Medication Refill 12/24/2016 Encounter Details Date Type Department Care Team Description 12/24/[address] [facility] Luz Stallings MD [facility] [place] [address] ENDOCRINOLOGY DEPT [phone] [place], [place] [address] (Wo rk) Social History Tobacco [...] MD [facility] ER DR [place], [place] [address] (Wo rk) documented as of this encounter Visit Diagnoses Not on filedocumented in this encounter Care Teams Paper Products Machine Operator Relationship Specialty Start Date End Date Lovely Vicente MD PCP - General 04/16/[address] [place] [address] documented as of this encounter
--- OUTSIDE RECORDS SUMMARY | 2022-02-23 09:01 | XMS_ITS | Encounter Summary ---
:1945 Author Organization [place] [address] Care Team Providers Name Role Phone Lovely Vicente MD Primary Care Provider Reason for Visit Reason Comments Medication Refill Encounter Details Date Type Department Care Team Description 05/10/2015 Refill Endocrinology at [facility] Rosalind Covarrubias, [facility] [place] [address] [facility] [phone] ENDOCRINOLOGY [place], [place] [address] (Wo rk) Social History Tobacco [...] [facility] ER CARDIOLOGY [place], [place] [address] (Wo rk) documented as of this encounter Visit Diagnoses Not on filedocumented in this encounter Care Teams Monotype Operator Relationship Specialty Start Date End Date Lovely Vicente MD PCP - General 04/16/[address] [place] [address] documented as of this encounter
--- OUTSIDE RECORDS SUMMARY | 2022-02-23 09:01 | XMS_ITS | Encounter Summary ---
:1945 Author Organization [facility] [place] [address] Care Team Providers Name Role Phone MiyaLokeshAngela STACIE Primary Care Provider Encounter Details Date Type Department Care Team Description 01/16/2014 Hospital Encounter Gastroenterology at [facility] Nohemi Jaimes, [facility] [place] [address] [facility] [phone] [place] GASTROENTEROLOGY DEPT. [place], [place] [address] Social History Tobacco Use Types [...] you need to be checked. Wednesday-Wednesday Clinic [phone] 8a-5p Same Day Endo [phone] 7a-8p Otherwise contact [phone] and ask to speak to the production support developer precision lathe operator Follow up care is a shelton [...] Jaimes MD - 01/16/2014 9:49 AM EDT [facility] Operative Note Patient Name: Gregory Fatima : [id number] MR#: [id number] Case Date: 01/16/2014 Surgeon: Surgeon(s) and Role: * Nohemi Jaimes MD - Primary Preoperative diagnosis: 5 yr surv. Full procedure note is documented under the Procedure section of eDH. documented in this encounter Plan of Treatment Upcoming Encounters Date Type Specialty Care Team Description 03/26/2022 Office Visit Cardiology Vitaliy Nobles MD [facility] ER CARDIOLOGY [place] [address] (Wo rk) documented as of this encounter [...] Surgical Pathology Report (01/16/2014 9:53 AM EDT) [facility] Method Time Signature Surgical CERNER Pathology ? [facility] Report ? Provider: ?? SHREE, NOHEMI Gonzalez ?Pt. Name: ?? MALICKEliseo RT, GREGORY E ? Acc #: ?[id number] ?Pt. MRN: ?[id number] ? Col Date: ?? 4 ? /Sex: [...] PATHOLOGY/CYTOLOGY ORDERABLE S Performing Organization Address [facility] Phon e Number [address] CERNER MILLENNIUM Specimen to [...] PATHOLOGY/CYTOLOGY ORDERABLE S Performing Organization Address [facility] Phon e Number [address] CERNER MILLENNIUM Specimen to Pathology (surgical or derm) (01/16/2014 9:53 AM EDT) Specimen Anatomical Collection Method Collection Time Receive d Time (Source) Location / / Volume Laterality AP Specimen 01/16/2014 9:53 AM 4 9:53 EDT AM EDT Narrative CERNER MILLENNIUM - 01/16/2014 9:53 AM E DT Specimen requisition ordered. ??Separate Pathology report to follow Nohemi Jiames MD PATHOLOGY/CYTOLOGY ORDERABLE S Performing Organization Address City/State/ZIP [place] [address] [facility] (01/16/2014 7:25 AM EDT) [facility] Method Time Signature COLONOSCOPY [facility] PROVATION Endoscopy Patient Name: Gregory Fatima ? Procedure Date: 01/16/2014 7:25 AM ? N: [id number] ? Date of : 1945 ? Age: 68 ? Order #: [id number] ? Procedure: ? Colonoscopy Indications: ? High [...] Routine documented in this encounter Care Teams Computer Application Developer Relationship Specialty Start Date End Date Angela Holliday APRN PCP - General 01/25/13 04/15/15 [address] [place] [address] documented as of this encounter
--- OUTSIDE RECORDS SUMMARY | 2022-02-23 09:01 | XMS_ITS | Encounter Summary ---
:1945 Author Organization [facility] [place] [address] Care Team Providers Name Role Phone Angela Holliday APRN Primary Care Provider Reason for Visit Reason Onset Date Comments Other 03/30/2013 blood in catheter ba g Encounter Details Date Type Department Care Team Description 03/30/2013 Telephone General Surgery at [facility] Janneth Sharma, Other (blood in [facility] RN catheter bag) [place] [address] Social History Tobacco Use Types Packs/Day [...] Vitaliy Nobles MD [facility] ER CARDIOLOGY [place], [place] [address] (Wo rk) documented as of this encounter Visit Diagnoses Not on filedocumented in this encounter Care Teams Boat Cleaner Relationship Specialty Start Date End Date Angela Holliday APRN PCP - General 01/25/13 04/15/[address] [place] [address] documented as of this encounter
--- OUTSIDE RECORDS SUMMARY | 2022-02-23 09:01 | XMS_ITS | Encounter Summary ---
:1945 Author Organization [facility] [place] [address] Care Team Providers Name Role Phone Lovely Vicente MD Primary Care Provider Encounter Details Date Type Department Care Team Description 09/03/2016 Laboratory Appointment Lab at [facility] Hx of [facility] [place] [id number] Social History Tobacco Use Types Packs/Day Years [...] MD [facility] ER CARDIOLOGY [place], [place] [address] (Wo rk) documented as of [...] EST) P athologist Signature Thyroglobulin <0.4 <=54.9 [facility] ng/mL [facility] Comment: Interpret with [...] BR et al. J Clin Endo Metab 1999;84:8519-7605). Assay performed using the DPC Immulite T g immunometric assay. (lowest detection limit is <0.4 ng/ml). Thyroglob Ab <20.0 0.0 - 40.0 IU/mL [facility] Comment: Assay performed is [...] Organization Address City/State/[place] [address] TSH (09/03/2016 11:07 AM EST) P athologist Signature TSH 3.01 0.27 - 4.20 [facility] mcIU/mL [facility] Specimen Anatomical Collection Method Collection Time Receive d Time (Source) Location / / Volume Laterality Blood specimen 09/03/2016 11:07 7 (specimen) AM EST 11:22 AM EST Resulting Agency Comment Spec In Lab Luz Prescott MD CHEMISTRY ORDERABLES Performing Organization Address City/State/[place] [address] documented in this encounter Visit Diagnoses Diagnosis Hx of papillary thyroid carcinoma Personal history of malignant neoplasm o f thyroid documented in this encounter Care Teams Shovel Log Loader Operator Relationship Specialty Start Date End Date Lovely Vicente MD PCP - General 04/16/[address] [place] [address] documented as of this encounter
--- OUTSIDE RECORDS SUMMARY | 2022-02-23 09:01 | XMS_ITS | Encounter Summary ---
:1945 Author Organization [facility] [place] [address] Care Team Providers Name Role Phone Lovely Vicente MD Primary Care Provider Reason for Visit Reason Onset Date Comments Medication Refill 06/19/2016 Encounter Details Date Type Department Care Team Description 06/19/2016 Refill Endocrinology at [facility] Luz Stallings MD [facility] [place] [address] ENDOCRINOLOGY DEPT [phone] [place], [place] [address] (Wo rk) Social History Tobacco [...] Vitaliy Nobles MD [facility] ER DR [place], [place] [address] (Wo rk) documented as of this encounter Visit Diagnoses Not on filedocumented in this encounter Care Teams Installer Molding And Trim Relationship Specialty Start Date End Date Lovely Vicente MD PCP - General 04/16/[address] [place] [address] documented as of this encounter
--- OUTSIDE RECORDS SUMMARY | 2022-02-23 09:01 | XMS_ITS | Encounter Summary ---
:1945 Author Organization [facility] [place] [address] Care Team Providers Name Role Phone Lovely Vicente MD Primary Care Provider Reason for Visit Reason Comments Nevus excision dysplastic nevus mi d upper abdomen Encounter Details Date Type Department Care Team Description 12/03/2016 Procedure visit Dermatology at [facility] Dysplastic nevus of Road MD Adrián trunk [address] [facility] [address] [facility] [phone] RD-DERMATOLGY [place] [address] Social History Tobacco Use Types Packs/Day Years [...] Halima Cordero MD during the day at [phone] Nurse: Mira [phone] Amy After 5 PM and on weekends, please call the hospital number , and ask for the Bilingual Instructor communication and outreach manager. documented in this encounter Progress Notes Halima Cordero MD - 12/10/2016 5:41 PM EDT Gwendolyn, Excision shows scar, there is no residual of the severely dysplastic nevus. Please notify patient and check on wound healing. Thank you, DTB Halima Cordero MD - 12/03/2016 3:00 PM EDT Images from the original note were not included. Dermatology Procedure note: Attending: Halima Cordero MD Clinical Nurse Leader: Mira James LPN Referring MD: Rigoberto Garcia [...] to call the clinic or the on-call catering and events manager over the weekend. ??? Name of Procedure? [...] MD [facility] ER CARDIOLOGY [place], [place] [address] (Wo rk) documented as of [...] [facility] Method Time Signature Surgical [id number] ?Location: [facility] Pathology [facility] Report The signing pathologist has (i) examined [...] Clinical Diagnosis: Dysplastic nevus, see previous pathology [id number] SPECIMEN PROCESSING A - Labeled/Fixative: Mid-upper abdomen, [...] Organization Address City/State/[place] [address] Specimen to Pathology (NON-OR) (12/03/2016 3:31 PM EDT) Specimen Anatomical Collection Method Collection Time Receive d Time (Source) Location / / Volume Laterality AP Specimen 12/03/2016 3:31 PM 7 6:27 EDT PM EDT Narrative [facility] - 12/03/2016 6:27 PM EDT Specimen requisition ordered. ??Separate Pathology report to follow Resulting Agency Comment Spec In Lab Halima Cordero MD PATHOLOGY/CYTOLOGY ORDERABLE S Performing Organization Address City/State/[place] [address] documented in this encounter Visit Diagnoses Diagnosis Dysplastic nevus of trunk Benign neoplasm of skin of trunk, except scrotum documented in this encounter Care Teams Inspector Plumbing Relationship Specialty Start Date End Date Lovely Vicente MD PCP - General 04/16/[address] [place] [address] [address] [place] [address] documented as of this encounter
--- OUTSIDE RECORDS SUMMARY | 2022-02-23 09:01 | XMS_ITS | Encounter Summary ---
:1945 [place] [address] Care Team Providers Name Role Phone Holley Hollidayica STACIE Primary Care Provider Encounter Details Date Type Department Care Team Description 03/28/2013 - [facility] 03/29/2013 Barbara Gomes MD Dx) [facility] [place] [address] [phone] Social History Tobacco Use Types Packs/Day Years [...] please call the General Surgery nurse at [phone], since this may mean that you need morecalcium. Follow-up Appointment: Will be scheduled with Dr. Mcknight in 6 weeks Date and time as well as any required labs will be mailed to you Please call [phone] to confirm date and time of your [...] by calcium supplementation. Phone number for questions: [phone] before 5 PM weekdays [phone] after 5 PM and on weekends/holidays Please follow up with Urology as per their recommendations for Bob removal AttachmentsThe following attachments cannot be sent through Care Everywhere. THYROIDECTOMY: WHAT TO EXPECT AT HOME (BARBADIAN)URINARY CATHETER CARE: AFTER YOUR VISIT (BARBADIAN)documented in this encounter Medications at Time of [...] is a 68 y.o. male presents to [facility] today for total thyroidectomy. See full [...] Willams MD - 03/28/2013 3:43 PM EDT [facility] Operative Note Patient Name: Gregory Fatima : [id number] MR#: [id number] Case Date: 03/28/2013 Surgeon: Surgeon(s) and Role: [...] patient was extubated and taken to the [facility] in stable condition. At the end [...] Operative Note Patient Name: Gregory Fatima : [id number] MR#: [id number] Case Date: 03/28/2013 Surgeon: Surgeon(s) and Role: [...] Vitaliy Nobles MD [facility] CARDIOLOGY [place], [place] [address] (Wo rk) documented [...] CARE TEST ORDERABLE S Performing Organization Address City/[facility]/[place] [address] CERNER MILLENNIUM (ABNORMAL) POCT [...] CARE TEST ORDERABLE S Performing Organization Address City/[facility]/[place] [address] CERNER MILLENNIUM (ABNORMAL) POCT [...] CARE TEST ORDERABLE S Performing Organization Address City/[facility]/ZIP Code Phon e Number [address] CERNER MILLENNIUM (ABNORMAL) POCT [...] CARE TEST ORDERABLE S Performing Organization Address City/[facility]/ZIP Code Phon e Number [address] CERNER MILLENNIUM (ABNORMAL) POCT [...] CARE TEST ORDERABLE S Performing Organization Address City/[facility]/ZIP Code Phon e Number [address] CERNER MILLENNIUM (ABNORMAL) POCT [...] CARE TEST ORDERABLE S Performing Organization Address City/[facility]/[place] [address] CERNER MILLENNIUM (ABNORMAL) POCT [...] CARE TEST ORDERABLE S Performing Organization Address City/[facility]/[place] [address] CERNER MILLENNIUM (ABNORMAL) POCT [...] CARE TEST ORDERABLE S Performing Organization Address City/[facility]/ZIP [facility] [place] [address] CERNER MILLENNIUM Specimen to [...] Address City/State/ZIP Code [place] [address] RAKESH [facility] Pathology Addendum Report (03/28/2013 12:03 PM EDT) Component Value Ref Test Analysis Performed At [facility] Range Method Time Signature Addendum [facility] Report ? [facility] ? Provider: ?? MESHA MCKNIGHT Pt. Name: ?? GREGORY FATIMA ? Acc #: ?[id number] ?Pt. MRN: ?[id number] ? Col Date: ?? 03/28/2013 ?/Sex: ?1945,(68 [...] MD PATHOLOGY/CYTOLOGY ORDERABLE S Performing Organization Address [facility]/State/[place] [address] [facility] Surgical Pathology Report (03/28/2013 12:03 PM EDT) Component Value Ref Test Analysis Performed At [facility] Range Method Time Signature Surgical [facility] Pathology ? [facility] Report ? Provider: ?? MESHA MCKNIGHT Pt. Name: ?? GREGORY FATIMA ? Acc #: ?[id number] ?Pt. MRN: ?[id number] ? Col Date: ?? 03/28/2013 ?/Sex: ?1945,(68 [...] areas of hemorrhage and ? calcifications. ? [facility] ? Provider: ?? MESHA MCKNIGHT Pt. Name: ?? GREGORY FATIMA ? Acc #: ?[id number] ?Pt. MRN: ?[id number] ? Col Date: ?? 03/28/2013 ?/Sex: ?1945,(68 years),Male ? Rec Date: ?? 03/28/2013 ?LOC: ?[facility] ? SURGICAL PATHOLOGY ? SECTIONS/PROCESSING: Provider Network Mgr sections are subm itted. (R6) ? B [...] MD PATHOLOGY/CYTOLOGY ORDERABLE S Performing Organization Address City/[facility]/ZIP Code Phon e Number [place] [address] [facility] Frozen Section Report (03/28/2013 12:03 PM EDT) Component Value Ref Test Analysis Performed At [facility] Range Method Time Signature Frozen CERNER Section ? [facility] Report ? Provider: ?? MESHA MCKNIGHT Pt. Name: ?? GREGORY FATIMA ? Acc #: ?[id number] ?Pt. MRN: ?[id number] ? Col Date: ?? 03/28/2013 ?/Sex: ?1945,(68 years),Male ? Rec Date: ?? 03/28/2013 ?LOC: ?[facility] ? FROZEN SECTION REPORT ? ---Frozen Section Report--- ? Part A - Intraoperati ve gross consultation was performed. ??The case was ? discussed by phone with Dr. Mcknight, and no frozen ? section was performed. ? 03/31/13 ??Verified by: ??César STRANGE, Ruben Yusuf, [facility] gist ? The [facility] gist whose electronic signature appears on [...] MD PATHOLOGY/CYTOLOGY ORDERABLE S Performing Organization Address City/[facility]/ZIP [place] [address] CERNER FaveryIUM POCT Glucose (03/28/2013 12:00 PM EDT) P athologist Signature POC Glucose 134 60 - 199 [facility] mg/dL [facility] Comment: Supplemental ranges: <110 mg/dL before meals <200 mg/dL all other times of the day Specimen Anatomical Collection Method Collection Time Receive d Time (Source) Location / / Volume Laterality Blood specimen 03/28/2013 12:00 3 (specimen) PM EDT 12:00 PM EDT Mesha Mcknight MD POINT OF CARE TEST ORDERABLE S Performing Organization Address City/State/[place] [address] [facility] Specimen to Pathology (surgical or derm) (03/28/2013 11:58 AM EDT) Specimen Anatomical Collection Method Collection Time Receive d Time (Source) Location / / Volume Laterality AP Specimen 03/28/2013 11:58 03/28/2013 AM EDT 11:58 AM EDT Narrative [facility] - 03/28/2013 11:58 AM EDT Specimen requisition ordered. ??Separate Pathology report to follow Mesha Mcknight MD PATHOLOGY/CYTOLOGY ORDERABLE S Performing Organization Address City/[facility]/[place] [address] [facility] Antibody screen (03/28/2013 9:37 AM EDT) Analysis Performed At Path logist Time Signature Ab Screen Negative [facility] Expires at [id number] [facility] [id number] on: [facility] Specimen Anatomical Collection Method Collection Time Receive d Time (Source) Location / / Volume Laterality Blood specimen 03/28/2013 9:37 AM 013 9:37 (specimen) EDT AM EDT Resulting Agency Comment Spec In Lab Mesha Mcknight MD BLOOD BANK ORDERABLES Performing Organization Address City/[facility]/ZIP Code Phon e Number [address] [facility] A[facility]/Rh Typing (03/28/2013 9:37 AM EDT) athologist Signature ABORh Type O Pos CERNER MILLENNIUM Specimen Anatomical Collection Method Collection Time Receive d Time (Source) Location / / Volume Laterality Blood specimen 03/28/2013 9:37 AM 013 9:37 (specimen) EDT AM EDT Resulting Agency Comment Spec In Lab Mesha Mcknight MD BLOOD BANK ORDERABLES Performing Organization Address City/State/[place] [address] CERNER MILLENNIUM Differential, Automated [...] Performing Organization Address City/State/ZIP Code [place] [address] CERNER MILLENNIUM (ABNORMAL) Basic [...] intervals supplied above were not validated at [facility]. Results from pediatri c patients should be [...] Mcknight MD CHEMISTRY ORDERABLES Performing Organization Address City/[facility]/ZIP Code Phon e Number [address] CERNER MILLENNIUM (ABNORMAL) CBC [...] Mcknight MD HEMATOLOGY ORDERABLES Performing Organization Address City/[facility]/ZIP Code Phon e Number [address] CERNER MILLENNIUM POCT Glucose (03/28/2013 9:17 AM EDT) athologist Signature POC Glucose 108 60 - 199 CERNER mg/dL [facility] Comment: Supplemental ranges: <110 mg/dL before meals <200 mg/dL all other times of the day Specimen Anatomical Collection Method Collection Time Receive d Time (Source) Location / / Volume Laterality Blood specimen 03/28/2013 9:17 AM 013 9:17 (specimen) EDT AM EDT Mesha Mcknight MD POINT OF CARE TEST ORDERABLE S Performing Organization Address City/State/[place] [address] [facility] Specimen to Pathology (surgical or derm) [...] Organization Address City/State/[place] [address] RAKESH WALKER documented in [...] RN) 0900 (Given - Provider: Radha Yao [facility], [facility]) 2.5 mg, Oral, DAILY, [...] override documented in this encounter Care Teams Chief Engineer Research Relationship Specialty Start Date End Date Angela Holliday APRN PCP - General 01/25/13 04/15/[address] [place] [address] documented as of this encounter
--- OUTSIDE RECORDS SUMMARY | 2022-02-23 09:01 | XMS_ITS | Encounter Summary ---
:1945 Author Organization [place] [address] Care Team Providers Name Role Phone Angela Holliday APRN Primary Care Provider Encounter Details Date Type Department Care Team Description 04/04/2013 Orders Only General Surgery at Manny Mcknight thyroid [facility] MD Eliseo carcinoma (Primary Dx) [facility] [place] [address] GENERAL SURGERY [phone] [place], [place] [address] Social History Tobacco Use Types [...] MD [facility] ER CARDIOLOGY [place], [place] [address] (Wo rk) documented as of this encounter Visit Diagnoses Diagnosis Papillary thyroid carcinoma - Primary Malignant neoplasm of thyroid gland documented in this encounter Care Teams Paper Bag Press Operator Relationship Specialty Start Date End Date Angela Holliday APRN PCP - General 01/25/13 04/15/[address] [place] [id number] documented as of this encounter
--- OUTSIDE RECORDS SUMMARY | 2022-02-23 09:01 | XMS_ITS | Encounter Summary ---
:1945 Author Organization [facility] [address] Care Team Providers Name Role Phone Angela Holliday APRN Primary Care Provider Reason for Visit Reason Comments Skin Check Encounter Details Date Type Department Care Team Description 07/31/2013 Follow-Up Dermatology at Rigoberto Forman eoplasm of unspecified nature of bone, soft tissue, and skin (Primary Dx); Abdelrahman HOOPER MD Seborrheic psoriasis- scalp and ingtergl uteal area; [address] [facility] Atypical [place] [address] [facility] [place], [place] [address] (Wo rk) Social History Tobacco [...] 07/31/2013 Gregory Hoang : 1945 Provider: Rigoberto Albarran MD PROBLEM: skin cancer screening SKIN HISTORY: [...] for and in the presence of Dr. Albarran.: GINNY CHRISTIANSEN LPN I performed the above scribed service and agree with the accuracy of the documentation in this encounter. Rigoberto Albarran MD Section of Dermatology [facility] documented in this encounter Plan of Treatment Upcoming Encounters Date Type Specialty Care Team Description 03/26/2022 Office Visit Cardiology Vitaliy Nobles MD [facility] ER [place] [address] (Wo rk) Scheduled Orders Name [...] Component Value Ref Test Analysis Performed At [facility] Range Method Time Signature Surgical CERNER Pathology ? [facility] Report ? Provider: ?? DEION III, RIGOBERTO Pt. Name: ?? GREGORY HOANG ?A ? Acc #: ?[id number] ? Pt. ? Col Date: ?? 07/31/2013 [...] 0.9 x 0.8 x 0.2 cm. ? [facility] ? Provider: ?? RIGOBERTO ALBARRAN III Pt. Name: ?? GREGORY HOANG Veda ?A ? Acc #: ?[id number] ? Pt. ? Col Date: ?? 07/31/2013 [...] Volume Laterality 07/31/2013 8:09 AM EST Rigoberto Albarran III, MD PATHOLOGY/CYTOLOGY ORDERABLE S Performing Organization Address City/[facility]/ZIP [place] [address] [facility] Specimen to Pathology (NON-OR) (07/31/2013 8:09 AM [...] Performing Organization Address City/[facility]/ZIP [place] [address] [facility] documented in this encounter Visit Diagnoses Diagnosis Neoplasm of unspecified nature of bone, soft tissue, and skin - Primary Seborrheic psoriasis- scalp and ingtergl uteal area Other psoriasis Atypical nevus of abdominal wall Benign neoplasm of skin of trunk, except scrotum documented in this encounter Care Teams Elastic Attacher Zigzag Relationship Specialty Start Date End Date Angela Holliday APRN PCP - General 01/25/13 04/15/[address] [place] [place] [address] documented as of this encounter
--- OUTSIDE RECORDS SUMMARY | 2022-02-23 09:01 | XMS_ITS | Encounter Summary ---
:1945 Author Organization [place] [address] Care Team Providers Name Role Phone Angela Holliday APRN Primary Care Provider Encounter Details Date Type Department Care Team Description 03/30/2013 Telephone General Surgery at [facility] Cliff Nevarez, [place] [address] Social History Tobacco Use Types Packs/Day [...] [facility] [place], [place] [address] (Wo rk) documented as of this encounter Visit Diagnoses Not on filedocumented in this encounter Care Teams Tenter Frame Back Tender Relationship Specialty Start Date End Date Angela Holliday APRN PCP - General 01/25/13 04/15/[address] [place] [address] documented as of this encounter
--- OUTSIDE RECORDS SUMMARY | 2022-02-23 09:01 | XMS_ITS | Encounter Summary ---
:1945 Author Organization [facility] [place] [address] Care Team Providers Name Role Phone Lovely Vicente MD Primary Care Provider Reason for Visit Reason Onset Date Comments Referral 10/30/2015 Urgent referral for mac on [address] [place] Encounter Details Date Type Department Care Team Description 10/30/2015 Telephone Ophthalmology at [facility] C Jayson Ruiz Referral (Urgent [facility] MD Grabiel referral for mac on [facility] DR SIM[address] [place]) [place] [address] OPHTHALMOLOGY DEPT. [phone] [place], [place] [address] (Wo rk) Social History Tobacco [...] [facility] ER [place], [place] [address] (Wo rk) documented as of this encounter Visit Diagnoses Not on filedocumented in this encounter Care Teams Skilled Labor Relationship Specialty Start Date End Date Lovely Vicente MD PCP - General 04/16/[address] [place] [address] documented as of this encounter
--- OUTSIDE RECORDS SUMMARY | 2022-02-23 09:01 | XMS_ITS | Encounter Summary ---
:1945 Author Organization [facility] [place] [address] Care Team Providers Name Role Phone Som Holliday APRN Primary Care Provider Encounter Details Date Type Department Care Team Description 04/11/2014 Procedure visit Gastroenterology at [facility] Esophageal reflux [facility] Luz Winchester RN (Primary Dx) [place] [address] Social History Tobacco Use Types Packs/Day Years Used Date Former Smoker Alcohol Use Standard Drinks/Week Comments No 0 (1 standard drink = 0.6 oz pure alcoho l) Sex Assigned at Date Recorded Not on file documented as of this encounter Progress Notes Adalid Can MD - 04/13/2014 3:43 PM EDT ESOPHAGEAL MANOMETRY Don Fatima Male, 69 yrs, 1945 PCP: [facility] TEACHER: NONE STUDY DATE: 04/11/14 PROVIDER: [place] ([id number]) INDICATION Reflux; preoperative evaluation. METHODS Stationary esophageal manometry was performed with the OfferSavvy esophageal motility system utilizing the Polygram software [...] of the esophagus. Adalid Can, PhD, MD office coordinator, [facility] [employer] Section of Gastroenterology and Hepatology [facility] [place] [address] V: [phone] F: [phone] [facility]/gabriela CC/EC: PCP - staff msg copy 04/13/14 Henrique Taylor MD - fax copy 04/13/14 Luz Keller RN - 04/11/2014 8:14 AM EDT Esophageal manometry performed without difficulty and Was well tolerated. documented in this encounter Plan of Treatment Upcoming Encounters Date Type Specialty Care Team Description 03/26/2022 Office Visit Cardiology Vitaliy Nobles MD [facility] ER CARDIOLOGY [place], [place] [address] (Wo rk) documented as of this encounter Visit Diagnoses Diagnosis Esophageal reflux - Primary documented in this encounter Care Teams Chimney Builder Relationship Specialty Start Date End Date Som Holliday APRN PCP - General 01/25/13 04/15/[address] [place] [address] documented as of this encounter
--- OUTSIDE RECORDS SUMMARY | 2022-02-23 09:01 | XMS_ITS | Encounter Summary ---
:1945 Author Organization [facility] [place] [address] Care Team Providers Name Role Phone Lovely Vicente MD Primary Care Provider Encounter Details Date Type Department Care Team Description 11/28/2016 Telephone Dermatology at [facility] Rigoberto Garcia III, [address] [place] [address] [facility] [phone] [facility] SIM[facility]-[facility] [place], [place] [address] (Wo rk) Social History Tobacco [...] provider. Rigoberto Garcia MD Section of Dermatology [facility] documented in this encounter Plan of Treatment Upcoming Encounters Date Type Specialty Care Team Description 03/26/2022 Office Visit Cardiology Vitaliy Nobles MD [facility] CARDIOLOGY [place], [place] [address] (Wo rk) documented as of this encounter Visit Diagnoses Not on filedocumented in this encounter Care Teams Splicing Supervisor Relationship Specialty Start Date End Date Lovely Vicente MD PCP - General 04/16/[address] [place] [address] documented as of this encounter
--- OUTSIDE RECORDS SUMMARY | 2022-02-23 09:01 | XMS_ITS | Encounter Summary ---
:1945 Author Organization [facility] [place] [address] Care Team Providers Name Role Phone MiyaAngela STACIE Primary Care Provider Reason for Visit Reason Comments Post Op voiding trial Encounter Details Date Type Department Care Team Description 04/05/2013 Office Visit [facility]rology at [facility] Darryl Egan, UTI ([facility] MD tract infection) [facility] (Primary Dx) [place] [address] UROLOGY DEPT [phone] [place], [place] [address] Social History Tobacco Use Types [...] [facility] ER CARDIOLOGY [place], [place] [address] (Wo rk) documented as of this encounter Procedures Procedure Name Priority Date/Time Associated Diagnosis Comme nts URINE CULTURE Routine 04/05/2013 11:48 AM UTI (lower urinary R esults for this EDT tract infection) procedure a re in the results section . documented in this encounter Results Urine culture Clean Catch Urine (04/05/2013 11:48 AM EDT) Component Value Ref Test Analysis Performed At [facility] Range Method Time Signature Urine Culture CERNER ? Patient Name: DON HOANG ? Ordered By: DARRYL EGAN [facility] ? MR#: [id number] ?LOC: ??5B ? /Sex: ??1945 (68 years), [...] S ? Patient: DON HOANG ? MR#: [id number] ? FOOTNOTES ? (1) ? This organism [...] Organization Address City/State/Z[place] [address] [facility] documented in this encounter Visit Diagnoses Diagnosis UTI (lower urinary tract infection) - Pr imary Urinary tract infection, site not specif ied documented in this encounter Care Teams Evaporative Cooler Installer Relationship Specialty Start Date End Date Angela Holliday APRN PCP - General 01/25/13 04/15/15 [address] [place] [address] documented as of this encounter
--- OUTSIDE RECORDS SUMMARY | 2022-02-23 09:01 | XMS_ITS | Encounter Summary ---
:1945 Author Organization [facility] [place] [address] Care Team Providers Name Role Phone Lovely Vicente MD Primary Care Provider Reason for Visit Reason Comments Skin Lesion Encounter Details Date Type Department Care Team Description 11/24/2016 [facility] behavior [facility]; Road IIIMD Pigmented skin lesion of uncertain natur e; [address] [facility] [place] of [place] [address] [facility] SIMÓN-DERMATOLGY [place], [place] [address] Social History Tobacco Use Types [...] or concerns, please call the office at [phone]. If it is after 5PM, or a holiday or weekend, please call [phone] and ask for the Mid Level Java Developer on-call. documented in this encounter Progress Notes [...] 71 y.o. year old male.Established patient of [employer]. Last seen 06/05/16. Here today for new [...] encounter. Rigoberto Garcia MD Section of Dermatology [facility] documented in this encounter Plan of Treatment Upcoming Encounters Date Type Specialty Care Team Description 03/26/2022 Office Visit Cardiology Vitaliy Nobles MD [facility] [address] [place], [place] [address] (Wo rk) documented as of [...] Medical Center Range Method Time Signature Surgical [id number] ?Location: [facility] Pathology [place] Report The signing pathologist has (i) examined [...] MD PATHOLOGY/CYTOLOGY ORDERABLE S Performing Organization Address City/[facility]/[place]IP [place] [address] Specimen to Pathology (NON-OR) (11/24/2016 8:28 AM EDT) Specimen Anatomical Collection Method Collection Time Receive d Time (Source) Location / / Volume Laterality AP Specimen 11/24/2016 8:28 AM 7 9:29 EDT AM [address] [facility] - 11/24/2016 9:29 AM EDT Specimen requisition ordered. ??Separate Pathology report to follow Resulting Agency Comment Spec In Lab Rigoberto Garcia III, MD PATHOLOGY/CYTOLOGY ORDERABLE S Performing Organization Address City/[facility]/[place]IP [place] [address] documented in this encounter Visit Diagnoses Diagnosis Neoplasm of uncertain behavior of skin Pigmented skin lesion of uncertain natur e History of melanoma Personal history of malignant melanoma o f skin documented in this encounter Care Teams Cardiac Sonographer Relationship Specialty Start Date End Date Lovely Vicente MD PCP - General 04/16/[address] [place] [address] [address] [facility] [place] [address] documented as of this encounter
--- OUTSIDE RECORDS SUMMARY | 2022-02-23 09:01 | XMS_ITS | Encounter Summary ---
:1945 Author Organization [facility] [place] [address] Care Team Providers Name Role Phone Angela Holliday APRN Primary Care Provider Reason for Visit Reason Comments Other Encounter Details Date Type Department Care Team Description 08/01/2013 Telephone Dermatology at [facility] Rigoberto Garcia III, [address] [place] [address] [facility] [phone] TEJA MARIE-DERMAT [place], [place] [address] (Wo rk) Social History Tobacco [...] them. Component Value Surgical Pathology Final Report [facility] Provider: RIGOBERTO GARCIA III Pt. Name: DON HOANG Acc #: [id number] Pt. 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 CR-0 08/01/13 BJM 08/01/13 Verified by: Ian STRANGE, PhD, [facility] Dermatopathologist (Electronic Signature) The attending pathologist whose [...] Nobles MD [facility] CARDIOLOGY [place], [place] [address] (Wo rk) documented as of this encounter Visit Diagnoses Not on filedocumented in this encounter Care Teams Health Care Sanitary Technician Relationship Specialty Start Date End Date Angela Holliday APRN PCP - General 01/25/13 04/15/15 [address] [facility] [place] [address] documented as of this encounter
--- OUTSIDE RECORDS SUMMARY | 2022-02-23 09:01 | XMS_ITS | Encounter Summary ---
:1945 Author Organization [facility] [place] [address] Care Team Providers Name Role Phone Lovely Vicente MD Primary Care Provider Encounter Details Date Type Department Care Team Description 09/03/2016 Office Visit Endocrinology at [facility] Maria Ines Stallings of [facility] MD [place] [address] [place] [address] ENDOCRINOLOGY DEPT [place], [place] [address] Social History Tobacco Use Types [...] to his magnesium pill. CALIXTO PRESCOTT MD Furniture Upholstery Mechanicdirector of cardiac cath lab Section of Endocrinology [facility] Calixto Prescott MD - 09/03/2016 11:30 AM [...] sonographic evidence of recurrence. CALIXTO PRESCOTT MD Furniture Upholstery Mechanicdirector of cardiac cath lab Section of Endocrinology [facility] documented in this encounter Plan of Treatment Upcoming Encounters Date Type Specialty Care Team Description 03/26/2022 Office Visit Cardiology Vitaliy Nobles MD [facility] CARDIOLOGY [place], [place] [address] (Wo rk) documented as of this encounter Results Thyroglobulin (09/07/2017 2:41 PM EST) athologist Signature Thyroglobulin 1.4 <=54.9 [facility] ng/mL [facility] Comment: Thyroglobulin levels may be [...] Organization Address City/State/[place] [address] [facility] [address] TSH (09/07/2017 2:41 PM EST) athologist Signature TSH 3.93 0.27 - 4.20 [facility] mlU/ML [facility] Specimen Anatomical Collection Method Collection Time Receive d Time (Source) Location / / Volume Laterality Blood specimen 09/07/2017 2:41 PM 018 2:46 (specimen) EST PM EST Resulting Agency Comment Spec In Lab Calixto Prescott MD CHEMISTRY ORDERABLES Performing Organization Address City/State/ZIP Code Phon e Number [place] [phone] [facility] [address] Thyroglobulin (09/03/2016 11:07 AM EST) athologist Signature Thyroglobulin <0.4 <=54.9 [facility] ng/mL [facility] Comment: Interpret with caution. Tg [...] BR et al. J Clin Endo Metab 1999;84:9837-5752). Assay performed using the Convivaulite T g immunometric assay. (lowest detection limit [...] Prescott MD CHEMISTRY ORDERABLES Performing Organization Address City/[facility]/ZIP Code Phon e Number [address] TSH (09/03/2016 11:07 AM EST) P athologist Signature TSH 3.01 0.27 - 4.[address] [facility] mcIU/mL [facility] Specimen Anatomical Collection Method Collection Time Receive d Time (Source) Location / / Volume Laterality Blood specimen 09/03/2016 11:07 7 (specimen) AM EST 11:22 AM EST Resulting Agency Comment Spec In Lab Calitxo Prescott MD CHEMISTRY ORDERABLES Performing Organization Address City/[facility]/[place] [address] documented in this encounter Visit Diagnoses Diagnosis Hx of papillary thyroid carcinoma Personal history of malignant neoplasm o f thyroid documented in this encounter Care Teams Manufacturer Relationship Specialty Start Date End Date Lovely Vicente MD PCP - General 04/16/[address] [place] [address] [address] [place] [address] documented as of this encounter
--- OUTSIDE RECORDS SUMMARY | 2022-02-23 09:01 | XMS_ITS | Encounter Summary ---
:1945 Author Organization [facility] [place] [address] Care Team Providers Name Role Phone MiyaLokeshAngela STACIE Primary Care Provider Reason for Visit Reason Onset Date Comments Post-op Problem 04/05/2013 voiding trial Encounter Details Date Type Department Care Team Description 04/05/2013 Telephone Urology at [facility] Blade Smith, Post-op Problem [facility] (voiding trial) [place] [address] UROLOGY DEPT [place] [phone] (Wo rk) Social History Tobacco Use Types [...] MD [facility] CARDIOLOGY [place], [place] [address] (Wo rk) documented as of this encounter Visit Diagnoses Not on filedocumented in this encounter Care Teams Jig Borer Relationship Specialty Start Date End Date Angela Holliday APRN PCP - General 01/25/13 04/15/[address] [place] [address] documented as of this encounter
--- OUTSIDE RECORDS SUMMARY | 2022-02-23 09:01 | XMS_ITS | Encounter Summary ---
:1945 [place] [address] Care Team Providers Name Role Phone Lovely Vicente MD Primary Care Provider Reason for Visit Reason Onset Date Comments Other 12/09/2016 RESULTS Encounter Details Date Type Department Care Team Description 12/09/2016 Telephone Dermatology at [facility] Halima Cadet MD Other (RESULTS) [address] [facility] [place] [address] [facility]-DERMAT[facility] [phone] [place], [place] [address] (Wo rk) Social History [...] EDT Spoke with patient's , Kisha (personal business process representative). I advised her Don's pathology results [...] back. She can be reached back at [phone] documented in this encounter Plan of Treatment Upcoming Encounters Date Type Specialty Care Team Description 03/26/2022 Office Visit Cardiology Vitaliy Nobles MD [facility] ER CARDIOLOGY [place], [place] [address] (Wo rk) documented as of this encounter Visit Diagnoses Not on filedocumented in this encounter Care Teams Personal Injury Legal Assistant Relationship Specialty Start Date End Date Lovely Vicente MD PCP - General 04/16/[address] [place] [address] documented as of this encounter
--- OUTSIDE RECORDS SUMMARY | 2022-02-23 09:01 | XMS_ITS | Encounter Summary ---
:1945 Author Organization [facility] [place] [address] Care Team Providers Name Role Phone Angela Holliday APRN Primary Care Provider Encounter Details Date Type Department Care Team Description 04/30/2014 Orders Only Endocrinology at [facility] Albertina Palmer, Thyroid cancer [facility] Jorge Boyer MD (Primary Dx) [place] [address] [facility] [phone] CENTER ENDOCRINOLOGY DEPT [place], [place] [address] Social History Tobacco Use Types [...] MD [facility] ER CARDIOLOGY [place], [place] [address] (Wo rk) documented as of this encounter Visit Diagnoses Diagnosis Thyroid cancer - Primary Malignant neoplasm of thyroid gland documented in this encounter Care Teams Mobile Service Rv Technician Relationship Specialty Start Date End Date Angela Holliday APRN PCP - General 01/25/13 04/15/[address] [place] [address] documented as of this encounter
--- OUTSIDE RECORDS SUMMARY | 2022-02-23 09:01 | XMS_ITS | Encounter Summary ---
:1945 Author Organization [facility] [place] [address] Care Team Providers Name Role Phone AlfonsoAliciaubaldoAngela STACIE Primary Care Provider Encounter Details Date Type Department Care Team Description 11/27/2013 Orders Only Urology at [facility] Blade Smith, Urinary retention [facility] (Primary Dx) [place] [address] UROLOGY DEPT [place], [place] [address] Social History Tobacco Use Types [...] Vitaliy Nobles MD [facility] ER CARDIOLOGY [place], [place] [address] (Wo rk) documented as of this encounter Results (ABNORMAL) PSA (11/28/2013 8:02 AM EDT) [facility] PSA Total 4.07 (H) 0.00 - CERNER (Ultrasensitiv 4.00 ng/mL MILLENNIUM e) Specimen Anatomical Collection Method Collection Time Receive d Time (Source) Location / / Volume Laterality Blood specimen 11/28/2013 8:02 AM 014 8:05 (specimen) EDT AM EDT Resulting Agency Comment Spec In Lab Blade Smith MD CHEMISTRY ORDERABLES Performing Organization Address City/State/ZIP Code Phon e Number [place] [phone] [facility] documented in this encounter Visit Diagnoses Diagnosis Urinary retention - Primary Retention of urine, unspecified documented in this encounter Care Teams Rectifying Operator Relationship Specialty Start Date End Date Angela Holliday APRN PCP - General 01/25/[address] [place] [address] documented as of this encounter
--- OUTSIDE RECORDS SUMMARY | 2022-02-23 09:01 | XMS_ITS | Encounter Summary ---
:1945 Author Organization [facility] [place] [address] Care Team Providers Name Role Phone Lovely Vicente MD Primary Care Provider Reason for Visit Reason Onset Date Comments Pre Procedure Call 12/02/2016 Encounter Details Date Type Department Care Team Description 12/02/2016 Telephone Dermatology at [facility] Mira James LPN Pre Procedure Call [address] [place] [address] Social History Tobacco Use Types Packs/Day [...] Visit Cardiology Vitaliy Nobles MD [facility] ER CARDIOLOGY [place], [place] [address] (Wo rk) documented as of this encounter Visit Diagnoses Not on filedocumented in this encounter Care Teams Tso Relationship Specialty Start Date End Date Lovely Vicente MD PCP - General 04/16/[address] [place] [address] documented as of this encounter
--- OUTSIDE RECORDS SUMMARY | 2022-02-23 09:01 | XMS_ITS | Encounter Summary ---
:1945 [place] [address] Care Team Providers Name Role Phone Lovely Vicente MD Primary Care Provider Reason for Visit Auth/Cert Specialty Diagnoses / Procedures Referred By Contact Refer red To Contact Diagnoses STEMI (ST elevation myocardial infarction) NSTEMI STEMI Procedures CARDIAC CATHETERIZATION NAYE IPI Referral ID Status Reason Start Date Expiration Date Visits Requ ested Visits Authorized [id number] 1 1 Encounter Details Date Type Department Care Team Description 07/05/2017 Surgery Senior Applications Developer Jet Guan, CARDIAC CATHETERIZATION [facility] [place] [address] CARDIOLOGY DEPT. [phone] [place], [place] [address] (Wo rk) Social History Tobacco [...] this encounter Discharge Summaries Martha Teague S, FOOD CLERK - 07/14/2017 9:38 AM EST Inpatient - Discharge Summary Patient Name: Gregory Hoang Patient Age: 72 y.o. Birthdate: 1945 Language: Chilean Race: White Ethnicity: Not nor Admit Date: [...] , @ 1:20p Patient to follow-up with Electrical Development Engineer/heart failure team in one week. An appointment will be made for you. You may call [phone] Patient to follow-up with Cardiac Surgery, Dr. Yuan Webber, in ~ 4 weeks with CXR, EKG. Inpatient Provider Contact Information: [facility] Section of Cardiac Surgery [facility] [place] [address] FAX [phone] Discharge Diagnoses (Hospital Problems) Primary Diagnoses: CAD [...] SETUP performed by Manny Mcknight MD at [facility] OR ??? PRO CABG, ARTERIAL, SINGLE N/A 07/07/2017 @CABG, USING ARTERIAL GRAFT;SINGLE ARTERIAL GRAFT (WRVU 33.75) performed by Yuan Webber MD at [facility] OR ??? PRO CABG, ARTERY-VEIN, TWO N/A 07/07/2017 @CABG, TWO VENOUS GRAFTS & ARTERIAL GRAFT (WRVU 7.93) performed by Yuan Webber MD at [facility] OR ??? PRO COLONOSCOPY, REMV LESN, SNARE 01/16/2014 COLONOSCOPY, POLYPECTOMY, REMOVAL LESION BY SNARE performed by Nohemi Jaimes MD at [facility] ENDOSCOPY ??? PRO ENDOSCOPY W/VIDEO-ASST VEIN HARVEST, CABG Right 07/07/2017 ENDOSCOPIC HARVEST VEIN(S) FOR CABG (WRVU 0.31) performed by Yuan Webber MD at [facility] OR ??? PRO THYROIDECTOMY 03/28/2013 THYROIDECTOMY, TOTAL OR COMPLETE performed by Manny Mcknight MD at [facility] OR Prior To Admission Medications Prescriptions Prior to Admission Medication Sig Dispense Refill Last Dose ??? levothyroxine (SYNTHROID) 175 mcg Tablet Take 1 tablet by mouth daily. 90 tablet 3 07/05/2017 [id number] ??? ascorbic acid, vitamin C, (VITAMIN C) [...] hospital and ruled infor non-ST segment elevation [place]. This almost certainly represents the residual of [...] Hospital Course: Gregory Hoang was admitted to [facility] on 07/05/2017 via the Cardiology Service. During his hospital course, he was taken emergently to the laboratory clerk for an ongoing STEMI. An IABP was [...] not take or discontinue any prescription or cexm-xbh-awrlhzp medications without asking your doctor or pharmacist [...] to have your insulin doses adjusted. [facility] office Discharge Instructions: Call your doctor if: You have a fever of greater than 101 degrees, shaking chills, if you develop redness or drainage from your incision sites, or if you have questions. Please call your surgeon's office if you have any discharge or drainage from your chest incision. Your surgeon, Dr. Yuan Webber and/or the Cardiac Surgery Physician Linseed Oil Boiler Team may be reached at . Weight: [...] Dr. Yuan Webber. You may use a [place] Track or treadmill but avoid any pulling [...] friends, go to a movie, go to samaritan, etc. Heavy activities: No hunting, skiing, jogging, snow shoveling, snowmobiling, lawn mowing, swimming, golf or tennis until after your return appointment with the surgeon. Do not ride motorcycles, [employer] tractors or horses. Avoid the use of [...] should resume a low fat, low cholesterol, [place] Heart Association Diet/Diabetic diet. Driving: No driving [...] , @ 1:20p Patient to follow-up with Electrical Development Engineer/heart failure team in one week. Appointment will be made for you. You may call [phone] Patient to follow-up with Cardiac Surgery, Dr. Yuan Webber, in ~ 4 weeks with CXR, EKG. Cardiac Rehabilitation: Gregory Hoang was seen today regarding participation in the outpatient Phase 2 Cardiac Rehabilitation at [facility]. The patient agrees to a referral to this program. The referral will be sent at discharge and the patient should be contacted by the Program within 1- 2 weeks from discharge. ?? Future Appointments and Orders Future Appointments Provider Department Dept Phone 09/07/2017 3:00 PM LAB, THREE L Lab 3L [facility] [phone] 09/07/2017 4:00 PM Luz Prescott MD Endocrinology at [place] [phone] Future Orders Complete By Expires EKG 12 Lead [EKG1 Custom] 08/14/2017 02/13/2018 Process Instructions: Scheduling Instructions: Questions: Which [facility] location will this be performed?: [place] Is a rhythm strip needed?: No If EKG Reason is Pre-op Evaluation, indicate diagnosis for surgery.: XR Chest PA & Lateral (Generic) [47596 [id number] Custom] 08/14/2017 02/13/2018 Process Instructions: Scheduling Instructions: Questions: Where will study be performed?: [facility] Portable exam?: Reason for exam and clinical history: CABG x 3 Other pertinent information: Stat read required?: Date of injury if applicable: Requested Time: Referral to Cardiac Rehab [MBY362 Custom] As directed Process Instructions: If no progress note charted, please enter Clinical details in comments. Scheduling Instructions: Questions: My question or request is: s/p CABG. Cardiac rehab at [facility] Referral to Home Health - at DISCHARGE [SIH1831 CPT(R)] As directed Process Instructions: Scheduling Instructions: Comments: DOCUMENTATION FOR VNA SERVICES (INCLUDING THOSE PATIENTS WITH MEDICARE COVERAGE REQUIRING HOME VNA SERVICES AND/OR HOSPICE SERVICES) PATIENT'S LOCATION: Gregory Hoang [address] [place] [address] [place] [address] (home) Telephone Information: Syrup Machine Laborer's Name: self In discussion with the attending physician, it is certified that this patient is under their care and that they, or a Nurse Practitioner, or Physician Linseed Oil Boiler who is working directly with them, had [...] [facility] ([facility] [place] [facility]-is in [place] PHONE: [phone] FAX: [phone] RN orders: Cardiopulmonary assessment, incisional assessment, assess vital signs, assessment of rehab progress, medication management and effectiveness, home safety evaluation. Please draw INR if indicated and send result to:Dr Vicente [phone] PT ORDERS: Continue rehab for endurance, gait stability and strength with mobility and transfers. Home safety evaluation. Home exercise program if appropriate. Start of Care Date:24-48 hours after discharge SPECIAL INSTRUCTIONS: For any follow up questions, needs, or issues please call the Cardiac Surgery Office at [phone] FOR MEDICARE ONLY: (please delete this section [...] OR AFTER 07/17/2017 Signed: Martha Teague APRN [facility] Section of Cardiac Surgery [facility] [address] FAX [phone] Date: 07/14/2017 CC: MD Ivania Cr Betsy, [place] [address] [place] [phone] documented in this encounter Discharge Instructions Discharge [...] to have your insulin doses adjusted. [facility]ocrine [facility] office Patient InstructionsStMartha mcdonald APRN [...] not take or discontinue any prescription or owas-dfa-clqerhg medications without asking your doctor or pharmacist [...] to have your insulin doses adjusted. [facility] Endocrine [facility] office ? Discharge Instructions: ?? Call your doctor if: You have a fever of greater than 101 degrees, shaking chills, if you develop redness or drainage from your incision sites, or if you have questions. Please call your surgeon's office if you have any discharge or drainage from your chest incision. Your surgeon, Dr. Yuan Webber and/or the Cardiac Surgery Physician Linseed Oil Boiler Team may be reached at . ?? [...] Dr. Yuan Webber. You may use a [place] Track or treadmill but avoid any pulling [...] friends, go to a movie, go to [employer]aritan, etc. ?? Heavy activities: No hunting, skiing, jogging, snow shoveling, snowmobiling, lawn mowing, swimming, golf or tennis until after your return appointment with the surgeon. Do not ride motorcycles, [employer] tractors or horses. Avoid the use of [...] should resume a low fat, low cholesterol, [place] Heart Association Diet/Diabetic diet. ?? Driving: No [...] @ 1:20p ?? Patient to follow-up with Electrical Development Engineer/heart failure team in one week. An appointment has been made for you, you can call [phone] ?? Patient to follow-up with Cardiac Surgery, Dr. Yuan Webber, in ~ 4 weeks with CXR, EKG. ? Cardiac Rehabilitation: Gregory Hoang??was seen today regarding participation in the outpatient Phase 2 Cardiac Rehabilitation at [facility]. ?? The patient agrees to a referral to this program.? The referral will be sent at discharge and the patient should be contacted by the Program within 1- 2 weeks from discharge. ? Future Appointments and Orders Future Appointments Provider Department Dept Phone ?? 09/07/2017 3:00 PM LAB, THREE L Lab 3L [facility] [phone] ?? 09/07/2017 4:00 PM Luz Prescott MD Endocrinology at [place] [phone] Future Orders Complete By Expires ?? EKG 12 Lead [EKG1 Custom] 08/14/2017 02/13/2018 ?? Process Instructions: ? Scheduling Instructions: ? Questions: ? Which location will this be performed?: [place] ?? Is a rhythm strip needed?: No ?? If EKG Reason is Pre-op Evaluation, indicate diagnosis for surgery.: ?? XR Chest PA & Lateral (Generic) [[id number] Custom] 08/14/2017 02/13/2018 ?? Process Instructions: ? Scheduling Instructions: ? Questions: ? Where will study be performed?: [facility] ?? Portable exam?: ?? Reason for exam and clinical history: CABG x 3 ?? Other pertinent information: ?? Stat read required?: ?? Date of injury if applicable: ?? Requested Time: ?? Referral to Cardiac Rehab [JCW345 Custom] As directed ? Process Instructions: ?? If no progress note charted, please enter Clinical details in comments. ?? Scheduling Instructions: ? Questions: ? My question or request is: s/p CABG. Cardiac rehab at [facility] ? Arrangements for VNA/home care: [...] RN - 07/14/2017 2:34 PM EST The patient/leather goods sales representative has been provided a list of Home Health Agencies/DME vendors which serve their preferred geographic area. A letter describing our affiliations was reviewed with them and theywere educated about their right to choose where referrals are placed. Patient requests referral to [facility]. PHONE: [phone] FAX: [phone] Expected date of discharge: 07/14 Referral routed to the Food And Beverage Manager for matching with agency/vendor and to [...] to have your insulin doses adjusted. [facility]ocrine [facility] office Kathie Carrera APRN [facility] Endocrinology Diabetes Management Pager [phone] 20 minutes of this 35 minute visit was spent with the patient in counseling on diabetes and treatment plan, reviewing all glucose and insulin data as well as relevant laboratory results with the patient, and coordination of care on the inpatient unit including nursing and primary team. Zulma Andres RN - 07/14/2017 10:30 AM EST The patient/leather goods sales representative has been provided a list of Home Health Agencies/DME vendors which serve their preferred geographic area. A letter describing our affiliations was reviewed with them and theywere educated about their right to choose where referrals are placed. Patient requests referral to : Yasmani [facility] ([facility] [place] [facility]-is in [place]) PHONE: [phone] FAX: [phone]. Expected date of discharge: 07/14/17 Referral routed to the Food And Beverage Manager for matching with agency/vendor and to [...] hours. If BG remains greater than 240, pfnnif22 units (no more than three times) &??call [...] continue to follow Katerin Azul APRN [facility] Endocrinology Diabetes Management Pager [phone] minutes of this 25 minute visit [...] of infiltration/extravasation Discussed plan of care with RABBIT DRESSER and RN. Elevate exrtemity and apply intermittent Warm compresses. Name of MD contacted Dr. Shaw Brown 07/13/2017 @ 0655 Name of RN contacted Ale Rangel RN Name of Pharmacist if consulted NA Name of Plastics MD ( if consulted) NA (Mandatory photo for infiltrations/ extravasations scoring a stage 2 or greater, but recommended forstage 1)( include measuring tape and identifier in the photo) SUPERVISOR PUBLIC HEALTH NURSING CARING FOR THIS PATIENT WILL CONTINUE TO [...] measuring tape and identifier in the photo) SUPERVISOR PUBLIC HEALTH NURSING CARING FOR THIS PATIENT WILL CONTINUE TO [...] regard to both infiltrates addressed by this magnetic tape typewriter operator.All of Mr. Hoang's responses were entirely appropriate. Images of infiltrates attached here. Martha Sharp APRN - 07/13/2017 8:01 AM EST Cardiac Surgery Progress Note: ID: [id number] 72 year old male POD#6 s/p CABGx3 [...] discharge. ?? I have met with the patient/leather goods sales representative to discuss discharge planning needs. I have provided the [facility], Office of Care Management letter from the Document Preparer Microfilming pertaining to rehab referrals. I have also provided a letter describing our affiliations within the [facility] and educated them about their right to choose where referrals are placed. ?? I reviewed the different levels of rehab including SNF, swing, acute and LTAC with the patient/leather goods sales representative. ?? The patient/leather goods sales representative has been provided a list of facilities within their preferred geographic area. ?? I have requested that the patient/leather goods sales representative provide at least three choices for referral. ?? The patient/leather goods sales representative have requested referrals to: ?? 1. . ?? 2. [facility] ?? 3. More to be entered ?? Expected date of discharge: 07/14 Note routed to Food And Beverage Manager who will communicate referrals to facilities [...] hours. If BG remains greater than 240, keqnsr29 units (no more than three times) & [...] hours. If BG remains greater than 240, motinr44 units (no more than three times) & call for new basal insulin orders. ??If less than 240 after two hours, give no insulin and resume prior schedule. Will continue to follow Katerin Azul APRN [facility] Endocrinology Diabetes Management Pager [phone] 20 minutes of this 35 minute visit was spent with the patient in counseling on diabetes and treatment plan, reviewing all glucose and insulin data as well as relevant laboratory results with the patient, and coordination of care on the inpatient unit including nursing and primary team. Makayla Stevenson APRN - 07/12/2017 9:52 AM EST Cardiac Surgery Progress Note: ID: [id number] 72 year old male POD#5 s/p CABGx3 [...] 07/11/2017 7:18 PM EST Patient arrived from [facility]. VSS. MSI dressing pulled off with [...] hours. If BG remains greater than 240, akqhkn60 units (no more than three times) & [...] AM EST Cardiac Surgery Progress Note: ID: [id number] 72 year old male POD#4 s/p CABGx3 [...] AM EST Cardiac Surgery Progress Note: ID: [id number] 72 year old male POD#3 s/p CABGx3 [...] Gas) No results found for: PHART, PO2ART, KAT8EZX Assessment/Plan: 72 year old male POD#3 s/p [...] Mami Thao - 07/09/2017 6:29 PM EST Honing Machine Operator Semiautomatic Encounter Note Patient Name: Gregory Hoang : [id number] MR#: [id number] Admit Date: 07/05/2017 4:20 PM Hospital Day 4 days Narrative: Patient was sitting in chair, hugging heart pillow, opened his eyes, nodding to come into room Assessment: Patient was sleepy. Intervention and Outcome: Introduced education managers services and patient reached his hand out in appreciation. Follow-up: Honing Machine Operator Semiautomatic remains available for support. Time in Direct [...] 07/09/2017 10:45 AM EST Report given to nursing staffing coordinator to cover care Maddison Cee PA - 07/09/2017 9:00 AM EST Cardiac Surgery Progress Note: ID: [id number] 72 year old male POD#2 s/p CABGx3 [...] Attending Surgeon on rounds. Signed: STEPHANIE Iqbal [facility] Section of Cardiac Surgery Date: 07/09/2017 [...] when IABP d/c'ed. Gretchen Carolina, PT Pager [phone] Maddison Cee PA - 07/08/2017 11:27 AM EST Cardiac Surgery Progress Note: ID: [id number] 72 year old male POD#1 s/p CABGx3 [...] Attending Surgeon on rounds. Signed: STEPHANIE Iqbal [facility] Section of Cardiac Surgery Date: 07/08/2017 [...] in place in R femoral. No hematoma. ROPE COILING MACHINE OPERATOR- Intact Psych- Anxious Skin- Dry, [...] intact. IABP in place in R femoral. ROPE COILING MACHINE OPERATOR- Intact Psych- Anxious Skin- Dry, [...] note for details. DAPHNE SHAHID MD Pager [phone] Jet Mckenna MD - 07/05/2017 6:48 PM EST Preliminary Cardiac Catheterization Procedure Note: Procedure(s) performed: Left heart cath, IABP insertion Access: Right EMPLOYMENT LEGAL ASSISTANT-->8fr IABP A time-out was conducted prior to [...] effect. Heparin gtt maintained. Pt transferred to laboratory clerk. documented in this encounter H&P Notes Daphne Shahid MD - 07/05/2017 6:08 PM EST CARDIOLOGY HISTORY & PHYSICAL EXAM Date of Admission: 07/05/2017 ( Hospital Day 0 days ) Responsible Attending: Daphne Shahid MD PCP: Lovely Vicente MD PCP#: [phone] Patient Active Problem List Diagnosis Code ??? [...] load with heparin drip and transferred to [facility]. While there, continued sob, question of chest pain. Stat TTE showing WMA diffusely and EF around 20%. No significant valvular disease. Taken to the laboratory clerk urgently for ongoing STEMI. [facility] Labs: INR 1.0 WBC 5.88 [...] monitor I/O - s/p lasix in the laboratory clerk, redose to aim net neg 1L by [...] Medicine, PGY-2 Cardiology S1, Team Pager # [phone] CARDIOLOGY ATTENDING NOTE Patient: Gregory Hoang Date [...] amenable for PCI. DAPHNE SHAHID MD Pager [phone] documented in this encounter Miscellaneous Notes Consult Note - Daphne Shahid MD - 07/14/2017 11:46 AM EST Heart Failure Service Inpatient Consult Note Gregory Hoang Date of : 1945 Age: 72 y.o. Today's date: 07/14/17 PCP: Lovely Vicente MD UPHOLSTERER HELPER: None Place of Service: [facility] Reason for Consult: Dr. Webber has requested [...] SETUP performed by Manny Mcknight MD at [facility] OR ??? PRO CABG, ARTERIAL, SINGLE N/A 07/07/2017 @CABG, USING ARTERIAL GRAFT;SINGLE ARTERIAL GRAFT (WRVU 33.75) performed by Yuan Webber MD at [facility] OR ??? PRO CABG, ARTERY-VEIN, TWO N/A 07/07/2017 @CABG, TWO VENOUS GRAFTS & ARTERIAL GRAFT (WRVU 7.93) performed by Yuan Webber MD at [facility] OR ??? PRO COLONOSCOPY, REMV LESN, SNARE 01/16/2014 COLONOSCOPY, POLYPECTOMY, REMOVAL LESION BY SNARE performed by Nohemi Jaimes MD at [facility] ENDOSCOPY ??? PRO ENDOSCOPY W/VIDEO-ASST VEIN HARVEST, CABG Right 07/07/2017 ENDOSCOPIC HARVEST VEIN(S) FOR CABG (WRVU 0.31) performed by Yuan Webber MD at [facility] OR ??? PRO THYROIDECTOMY 03/28/2013 THYROIDECTOMY, TOTAL OR COMPLETE performed by Manny Mcknight MD at [facility] OR Outpt Meds: Current Outpatient Prescriptions Medication [...] following studies: EKG 07/14/17: NSR 75 bpm, MOBILE SECURITY ARCHITECT anterior infarct, LAD CXR 07/11/17: FINDINGS: Sternotomy wires. The patient has been extubated, left chest tube removed, and Hamilton-Suzi catheter removed since the 07/07/2017 study. Atelectasis [...] was discussed with Zehra. Jaden Kelley MD Weatherization Director Pager [phone] CARDIOLOGY ATTENDING NOTE Patient: Gregory Hoang Date [...] heart failure clinic. DAPHNE SHAHID MD Pager [phone] Plan of Care - Alden Chavarria PTA [...] home with assist Alden Chavarria PTA Pager: [phone] Inpatient Physical Therapy Problem: Acute Rehab Services [...] sit/sit to supine -- Bed Mobility Goal, [place] Level supervision required -- Bed Mobility Goal, [...] - 3 days -- Gait Training Goal, [place] Level supervision required -- Gait Training Goal, [...] days -- Transfer Training Goal, Activity Type pkf-im-jzhjj/qjxta-ak-tef;mww-gn-etcbn/jdlve-tp-bcd;toilet -- Transfer Train Goal, [place] Level supervision required -- Transfer Training Goal, [...] keeping present for 2 days per family. Complex Care Nurse Practitioner noted of frustrations, house keeping sent to room. Patient offered showered twice, refused. at bedside, frustrated that shower not complete, informed that patient had refused several times. requesting to see MERGERS AND ACQUISITIONS ASSOCIATE, paged sent to Martha, will come to bedside (middle of consult). not willing to wait, Martha notified that family had gone home. Encouraged to come for morning rounds a t 8am. Diabetes team at bedside - insulin adjustments made. Call cabello in reach. Continue to monitor. PLAN MOVING FORWARD: Ambulate, dressing changes BID, Please change drsg at 4am per Martha MERGERS AND ACQUISITIONS ASSOCIATE request. INDIVIDUALIZED FALL PREVENTION INTERVENTIONS: Patient-specific [...] levels on the lower side, 60ml of [place] juice given after a FS of 80. [...] Conf 07/13/17 0502 Interdisciplinary Rounds/Family Conf Participants lining caser;dietitian/nutrition services;nursing;occupational therapy;patient;pharmacy;physical therapy;physician Plan of Care [...] monitoring required during toileting and ADLs]: RN RABBIT DRESSER Surveillance [continuous indirect monitoring]: Barrett Monitor CPG [...] Anticipated Discharge Disposition: home with assist Pager: [phone] CLARISSA SEGAL, PT 07/12/2017 Physical Therapy Rehabilitation [...] to sit/sit to supine Bed Mobility Goal, [place] Level supervision required Bed Mobility Goal, Additional Goal adheres to psternal precautions for transfer Goal: Gait Training Goal Stand Alone Therapy Goal Outcome: Ongoing (Interventions Implemented as Appropriate) 07/12/17 1225 Gait Training Goal Gait Training Goal, Date Established 07/12/17 Gait Training Goal, Time to Achieve 2 - 3 days Gait Training Goal, [place] Level supervision required Gait Training Goal, Assist [...] 3 days Transfer Training Goal, Activity Type sxb-yi-rgzvc/jyabx-zr-zmg;qhj-bd-uqtmt/kwyst-er-vxv;toilet Transfer Train Goal, [place] Level supervision required Transfer Training Goal, Additional Goal adheres to sternal precautions during transfer Consult Note - Octavia Vaughn RN - 07/12/2017 10:50 AM EST [facility] Gregory Hoang was seen today regarding participation in the outpatient Phase 2 Cardiac Rehabilitation at [facility]. The patient agrees to a [...] IV site, amio to other piv and MEDICAL CONSULTANT at bedside to help assess, IV removed. [...] staff, he stood and marched in place. [place] weak, wanting to sit back down. Remained [...] Health/Prescription Coverage: Primary Insurance: MEDICARE Secondary Insurance: [employer] [employer] [place] Prescription Coverage: yes Preferred Pharmacy: [facility] Other: none Primary Care Provider: Lovely Vicente MD [phone] Patient/Caregiver Goals of Treatment:live and get my breath back Potential Needs for Transition of Care: Rehab/SNF: [facility] Home Health: NA DME: TBD Dialysis: na Community Resources: available Transportation: yes Other: none Anticipated Barriers to Discharge/Special Considerations: none Plan: Likely SNF Rehab before home A member of the Care Management team will continue to monitor progress, follow for continuity of care and assist with transition of care planning. ERLIN Weiss Pager: [phone] Consult Note - Katerin Azul RN - [...] management and to provide a review of long-term diabetes care. Diabetes History: Gregory Hoang has [...] potential to d/c gtt and start CF. extermination supervisor diabetes care: Medications - Outpatient treatment regimen recommendations pending based on the hospital course. Monitoring - continue BG tid ac & hs Diet - low fat/low carb diet Exercise - weight-bearing exercise 30 min/day, as tolerated Thank you for allowing us to provide care for your patient W/E coverage, Dr. 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 07/07/17621 Cardiac: ACS (Acute Coronary Syndrome) Problems [...] major CV events such as , stroke, [place], repeat revascularization compared to PCI). In this [...] Hahn, MS3 [employer] [facility] Cardiology S1 (Pager [phone]) Plan of Care - Emelia Ibarra RN [...] hospital and ruled infor non-ST segment elevation [place]. This almost certainly represents the residual of [...] with other involved physicians Yuan Webber MD [phone] Med Student Progress Note - Katty Hahn [...] major CV events such as , stroke, [place], repeat revascularization compared to PCI). In this [...] or BiPAP - s/p lasix in the laboratory clerk, was net -1.5L - s/p plavix load, [...] insulin drip - hold metformin - f/u [facility] ?? #Home Meds - continue levothyroxine 175mcg - CPAP at night ?? # Routine - DVT PPx: heparin drip - Diet: Healthy heart diet, NPO at midnight for CABG tomorrow - Code Status: FULL - Dispo: CVCC Katty Hahn, M3 [facility] Cardiology S1 (Pager [phone]) Plan of Care - Stephanie Godoy RN - 07/06/2017 5:00 AM EST Problem: Patient Care Overview Goal: Plan of Care Review 07/06/17 1816 Coping/Psychosocial Plan Of Care Reviewed With patient;family [...] in urinal without difficulty. Lasix given in laboratory clerk, 1.4 L out at this time. Pt [...] Outcome: Ongoing (Interventions Implemented as Appropriate) 07/06/17 4586 Cardiac: ACS (Acute Coronary Syndrome) Problems Assessed [...] [facility] CARDIOLOGY [place] 0375 (Wo rk) Scheduled Orders Name Type [...] procedure are i n the results section. 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 FRAME BUILDER SCAN 07/15/2017 12:00 Res ults for this [...] 07/08/2017 4:00 Results f or this ([facility] AM EST procedure are i n the [...] Routine 07/07/2017 5:15 Results f or this ([facility] AM EST procedure are i n the [...] 07/06/2017 7:40 Results f or this ([facility] PM EST procedure are i n the [...] TYPE AND SCREEN Routine 07/06/2017 12:00 ([facility] PM EST APTT STAT 07/06/2017 11:24 Results [...] 07/06/2017 8:10 Results f or this ([facility] AM EST procedure are i n the [...] 07/06/2017 2:20 Results f or this ([facility] AM EST procedure are i n the [...] 07/05/2017 8:20 Results f or this ([facility] PM EST procedure are i n the [...] 07/05/2017 4:55 Results f or this ([facility] PM EST procedure are i n the [...] EXAMINATION: XR CHEST PA AND LATERAL ([employer]) CLINICAL HISTORY: CABG x 3 TECHNIQUE: PA [...] Nuñezshawanda QUINONES IMG DX ORDERABLES SCAN DOC: CHAIR FRAME BUILDER (07/15/2017 12:00 AM EST) Narrative 07/15/2017 12:00 [...] POC Glucose 186 65 - 199 [facility] LABORATORY Comment: Supplemental ranges: <140 mg/dL before meals <180 mg/dL all other times of the day Specimen Anatomical Collection Method Collection Time Receive d Time (Source) Location / / Volume Laterality Blood specimen 07/14/2017 11:56 7 (specimen) AM EST 11:56 AM EST Yuan Webber MD POINT OF CARE TEST ORDERABLE S Performing Organization Address City/State/[place] [address] POCT Glucose (07/14/2017 7:52 AM EST) athologist Signature POC Glucose 126 65 - 199 [facility] mg/dL [facility] LABORATORY Comment: Supplemental ranges: <140 mg/dL before meals <180 mg/dL all other times of the day Specimen Anatomical Collection Method Collection Time Receive d Time (Source) Location / / Volume Laterality Blood specimen 07/14/2017 7:52 AM 017 7:52 (specimen) EST AM EST Yuan Webber MD POINT OF CARE TEST ORDERABLE S Performing Organization Address City/State/[place] [address] (ABNORMAL) Prothrombin Time (07/14/2017 4:46 AM EST) athologist Signature PT 26.4 (H) 11.8 - 14.0 [facility] LABORATORY INR 2.4 (H) 0.9 - [...] STACIE HEMATOLOGY ORDERABLES Performing Organization Address City/[facility]/ZIP Code Phon e Number [address] Potassium (07/14/2017 4:46 AM EST) athologist Signature Potassium 4.3 3.5 - 5.0 [facility] mmol/L [facility] LABORATORY Comment: Please note: ??Patients with WBC [...] Address City/State/[place] [address] POCT Glucose (07/14/2017 4:34 AM EST) athologist Signature POC Glucose 115 65 - 199 [facility] mg/dL [facility] LABORATORY Comment: Supplemental ranges: <140 mg/dL before meals <180 mg/dL all other times of the day Specimen Anatomical Collection Method Collection Time Receive d Time (Source) Location / / Volume Laterality Blood specimen 07/14/2017 4:34 AM 017 4:34 (specimen) EST AM EST Yuan Webber MD POINT OF CARE TEST ORDERABLE S Performing Organization Address City/State/ZIP Code Phon e Number [address] POCT Glucose (07/13/2017 11:33 PM EST) athologist Signature POC Glucose 132 65 - 199 [place] mg/dL [facility] LABORATORY Comment: Supplemental ranges: <140 mg/dL before meals <180 mg/dL all other times of the day Specimen Anatomical Collection Method Collection Time Receive d Time (Source) Location / / Volume Laterality Blood specimen 07/13/2017 11:33 7 (specimen) PM EST 11:33 PM EST Yuan Webber MD POINT OF CARE TEST ORDERABLE S Performing Organization Address City/[facility]/ZIP Code Phon e Number [address] POCT Glucose (07/13/2017 9:25 PM EST) athologist Signature POC Glucose 121 65 - 199 [place] mg/dL [facility] LABORATORY Comment: Supplemental ranges: <140 mg/dL before meals <180 mg/dL all other times of the day Specimen Anatomical Collection Method Collection Time Receive d Time (Source) Location / / Volume Laterality Blood specimen 07/13/2017 9:25 PM 017 9:25 (specimen) EST PM EST Yuan Webber MD POINT OF CARE TEST ORDERABLE S Performing Organization Address City/[facility]/[place] [address] POCT Glucose (07/13/2017 4:55 PM EST) athologist Signature POC Glucose 79 65 - 199 [place] mg/dL [facility] LABORATORY Comment: Supplemental ranges: <140 mg/dL before meals <180 mg/dL all other times of the day Specimen Anatomical Collection Method Collection Time Receive d Time (Source) Location / / Volume Laterality Blood specimen 07/13/2017 4:55 PM 017 4:55 (specimen) EST PM EST Yuan Webber MD POINT OF CARE TEST ORDERABLE S Performing Organization Address City/State/[place] [address] POCT Glucose (07/13/2017 11:16 AM EST) athologist Signature POC Glucose 163 65 - 199 [facility] LABORATORY Comment: Supplemental ranges: <140 mg/dL before meals <180 mg/dL all other times of the day Specimen Anatomical Collection Method Collection Time Receive d Time (Source) Location / / Volume Laterality Blood specimen 07/13/2017 11:16 7 (specimen) AM EST 11:16 AM EST Yuan Webber MD POINT OF CARE TEST ORDERABLE S Performing Organization Address City/State/ZIP Code Phon e Number [address] POCT Glucose (07/13/2017 8:07 AM EST) athologist Signature POC Glucose 96 65 - 199 [facility] mg[facility]dL [facility] LABORATORY Comment: Supplemental ranges: <140 mg/dL before meals <180 mg/dL all other times of the day Specimen Anatomical Collection Method Collection Time Receive d Time (Source) Location / / Volume Laterality Blood specimen 07/13/2017 8:07 AM 017 8:07 (specimen) EST AM EST Yuan Webber MD POINT OF CARE TEST ORDERABLE S Performing Organization Address City/State/[place] [address] (ABNORMAL) Prothrombin Time (07/13/2017 4:26 AM EST) athologist Signature PT 20.8 (H) 11.8 - 14.0 [facility] LABORATORY INR 1.8 (H) 0.9 - [...] Organization Address City/State/[place] [address] (ABNORMAL) Basic Metabolic Panel (non-fasting) (07/13/2017 4:26 AM EST) athologist Signature Glucose Lvl 95 65 - 199 [facility] mg/dL [facility] LABORATORY Comment: Diabetes: >=200 mg/dL plus symp toms BUN 25 (H) 10 - 20 mg/dL [facility] LABORATORY Creatinine 1.19 0.80 - 1.50 mg/dL [facility] LABORATORY Sodium 143 135 - 145 mmol/L [facility] LABORATORY Potassium 3.7 3.5 - 5.0 mmol/L [facility] Calcium 7.7 (L) 8.5 - 10.5 mg/dL [facility] LABORATORY Estimated GFR 60 >=60 [facility] LABOR[facility]ORY Comment: The reported eGFR should be multiplied b y 1.2 for patients. The MDRD is not an appropriate measure o f renal function for patients with body mass extremes or in patients with acute kidney failure. http://Rasmussen Reports/DHnkdep http://Rasmussen Reports/DHMCnkf Specimen Anatomical Collection Method Collection Time Receive d Time (Source) Location / / Volume Laterality Blood specimen 07/13/2017 4:26 AM 017 4:46 (specimen) EST AM EST Resulting Agency Comment Spec In Lab Makayla Wilson APRN CHEMISTRY ORDERABLES Performing Organization Address City/State/ZIP Code Phon e Number [address] POCT Glucose (07/13/2017 3:52 AM EST) athologist Signature POC Glucose 93 65 - 199 [place] mg/dL [facility] LABORATORY Comment: Supplemental ranges: <140 mg/dL before meals <180 mg/dL all other times of the day Specimen Anatomical Collection Method Collection Time Receive d Time (Source) Location / / Volume Laterality Blood specimen 07/13/2017 3:52 AM 017 3:52 (specimen) EST AM EST Yuan Webber MD POINT OF CARE TEST ORDERABLE S Performing Organization Address City/[facility]/[place] [address] POCT Glucose (07/13/2017 12:21 AM EST) athologist Signature POC Glucose 80 65 - 199 [facility]AN mg/dL [facility] LABORATORY Comment: Supplemental ranges: <140 mg/dL before meals <180 mg/dL all other times of the day Specimen Anatomical Collection Method Collection Time Receive d Time (Source) Location / / Volume Laterality Blood specimen 07/13/2017 12:21 7 (specimen) AM EST 12:21 AM EST Yuan Webber MD POINT OF CARE TEST ORDERABLE S Performing Organization Address City/State/ZIP Code Phon e Number [address] POCT Glucose (07/12/2017 8:22 PM EST) athologist Signature POC Glucose 119 65 - 199 [facility]AN mg/dL [facility] LABORATORY Comment: Supplemental ranges: <140 mg/dL before meals <180 mg/dL all other times of the day Specimen Anatomical Collection Method Collection Time Receive d Time (Source) Location / / Volume Laterality Blood specimen 07/12/2017 8:22 PM 017 8:22 (specimen) EST PM EST Yuan Wbeber MD POINT OF CARE TEST ORDERABLE S Performing Organization Address City/State/ZIP Code Phon e Number [address] POCT Glucose (07/12/2017 4:02 PM EST) athologist Signature POC Glucose 114 65 - 199 [place] mg/dL [facility] LABORATORY Comment: Supplemental ranges: <140 mg/dL before meals <180 mg/dL all other times of the day Specimen Anatomical Collection Method Collection Time Receive d Time (Source) Location / / Volume Laterality Blood specimen 07/12/2017 4:02 PM 017 4:02 (specimen) EST PM EST Yuan Webber MD POINT OF CARE TEST ORDERABLE S Performing Organization Address City/[facility]/ZIP Code Phon e Number [address] POCT Glucose (07/12/2017 11:28 AM EST) athologist Signature POC Glucose 164 65 - 199 [place] mg/dL [facility] LABORATORY Comment: Supplemental ranges: <140 mg/dL before meals <180 mg/dL all other times of the day Specimen Anatomical Collection Method Collection Time Receive d Time (Source) Location / / Volume Laterality Blood specimen 07/12/2017 11:28 7 (specimen) AM EST 11:28 AM EST Yuan Webber MD POINT OF CARE TEST ORDERABLE S Performing Organization Address City/State/[place] [address] POCT Glucose (07/12/2017 7:34 AM EST) athologist Signature POC Glucose 109 65 - 199 [place] mg/dL [facility] LABORATORY Comment: Supplemental ranges: <140 mg/dL before meals <180 mg/dL all other times of the day Specimen Anatomical Collection Method Collection Time Receive d Time (Source) Location / / Volume Laterality Blood specimen 07/12/2017 7:34 AM 017 7:34 (specimen) EST AM EST Yuan Webber MD POINT OF CARE TEST ORDERABLE S Performing Organization Address City/State/[place] [address] (ABNORMAL) Basic Metabolic Panel (non-fasting) (07/12/2017 4:11 AM EST) P athologist Signature Glucose Lvl 92 65 - 199 [facility] mg/dL [facility] LABORATORY Comment: Diabetes: >=200 mg/dL plus symp toms BUN 31 (H) 10 - 20 mg/dL [facility] LABORATORY Creatinine 1.23 0.80 - 1.50 mg/dL [facility] LABORATORY Sodium 145 135 - 145 mmol/L [facility] LABORATORY Potassium Not Perf 3.5 - 5.0 mmol/L [facility] LABORATORY Comment: Duplicate order [...] Gap Not Calculated 5 - 15 mmol/L [facility] LABORATORY Calcium 8.1 (L) 8.5 - 10.5 mg/dL [facility] LABORATORY Estimated GFR 58 (L) >=60 [facility] LABORATORY Comment: The reported eGFR should be multiplied b y 1.2 for patients. The MDRD is not an appropriate measure o f renal function for patients with body mass extremes or in patients with acute kidney failure. http://[employer]BuzzStream/DHnkdep http://Rasmussen Reports/DHMCnkf Specimen Anatomical Collection Method Collection Time Receive d Time (Source) Location / / Volume Laterality Blood specimen 07/12/2017 4:11 AM 017 8:57 (specimen) EST AM EST Resulting Agency Comment Spec In Lab Makayla Wilson APRN CHEMISTRY ORDERABLES Performing Organization Address City/State/[place] [address] (ABNORMAL) Prothrombin Time (07/12/2017 4:11 AM EST) P athologist Signature PT 15.4 (H) 11.8 - 14.0 [facility] LABORATORY INR 1.2 (H) 0.9 - [...] Resulting Agency Comment Spec In Lab Makayla [facility] HEMATOLOGY ORDERABLES Performing Organization Address City/[facility]/[place] [address] Potassium (07/12/2017 4:11 AM EST) P athologist Signature Potassium 3.8 3.5 - 5.0 [facility] mmol/L [facility] LABORATORY Comment: Please note: ??Patients with WBC [...] Resulting Agency Comment Spec In Lab [facility]LES Performing Organization Address City/State/[place] [address] POCT Glucose (07/12/2017 4:10 AM EST) athologist Signature POC Glucose 90 65 - 199 [place] mg/dL [facility] LABORATORY Comment: Supplemental ranges: <140 mg/dL before meals <180 mg/dL all other times of the day Specimen Anatomical Collection Method Collection Time Receive d Time (Source) Location / / Volume Laterality Blood specimen 07/12/2017 4:10 AM 017 4:10 (specimen) EST AM EST Yuan Webber MD POINT OF CARE TEST ORDERABLE S Performing Organization Address City/State/[place] [address] POCT Glucose (07/11/2017 11:57 PM EST) athologist Signature POC Glucose 98 65 - 199 [facility] [place]YAN mg/dL [facility] LABORATORY Comment: Supplemental ranges: <140 mg/dL before meals <180 mg/dL all other times of the day Specimen Anatomical Collection Method Collection Time Receive d Time (Source) Location / / Volume Laterality Blood specimen 07/11/2017 11:57 7 (specimen) PM EST 11:57 PM EST Yuan Webber MD POINT OF CARE TEST ORDERABLE S Performing Organization Address City/[facility]/[place] [address] POCT Glucose (07/11/2017 8:32 PM EST) athologist Signature POC Glucose 146 65 - 199 [place] mg/dL [facility] LABORATORY Comment: Supplemental ranges: <140 mg/dL before meals <180 mg/dL all other times of the day Specimen Anatomical Collection Method Collection Time Receive d Time (Source) Location / / Volume Laterality Blood specimen 07/11/2017 8:32 PM 017 8:32 (specimen) EST PM EST Yuan Webber MD POINT OF CARE TEST ORDERABLE S Performing Organization Address City/State/[place] [address] XR Chest PA & [...] e xtubated, left chest tube removed, and Hamilton-Suzi catheter removed since the study. Atelectasis at [...] e xtubated, left chest tube removed, and Hamilton-Suzi catheter removed since the study. Atelectasis at [...] POC Glucose 223 (H) 65 - 199 [facility] mg/dL [facility] LABORATORY Comment: Supplemental ranges: <140 mg/dL before meals <180 mg/dL all other times of the day Specimen Anatomical Collection Method Collection Time Receive d Time (Source) Location / / Volume Laterality Blood specimen 07/11/2017 4:05 PM 017 4:05 (specimen) EST PM EST Yuan Webber MD POINT OF CARE TEST ORDERABLE S Performing Organization Address City/State/ZIP Code Phon e Number [address] POCT Glucose (07/11/2017 11:55 AM EST) P athologist Signature POC Glucose 176 65 - 199 [place] mg/dL [facility] LABOR[facility]ORY Comment: Supplemental ranges: <140 mg/dL before meals <180 mg/dL all other times of the day Specimen Anatomical Collection Method Collection Time Receive d Time (Source) Location / / Volume Laterality Blood specimen 07/11/2017 11:55 7 (specimen) AM EST 11:55 AM EST Yuan Webber MD POINT OF CARE TEST ORDERABLE S Performing Organization Address City/State/[place] [address] POCT Glucose (07/11/2017 7:53 AM EST) athologist Signature POC Glucose 189 65 - 199 [place] mg/dL [facility] LABOR[facility]ORY Comment: Supplemental ranges: <140 mg/dL before meals <180 mg/dL all other times of the day Specimen Anatomical Collection Method Collection Time Receive d Time (Source) Location / / Volume Laterality Blood specimen 07/11/2017 7:53 AM 017 7:53 (specimen) EST AM EST Yuan Webber MD POINT OF CARE TEST ORDERABLE S Performing Organization Address City/State/ZIP Code Phon e Number [address] POCT Glucose (07/11/2017 4:22 AM EST) athologist Signature POC Glucose 151 65 - 199 [place] mg/dL [facility] LABORATORY Comment: Supplemental ranges: <140 mg/dL before meals <180 mg/dL all other times of the day Specimen Anatomical Collection Method Collection Time Receive d Time (Source) Location / / Volume Laterality Blood specimen 07/11/2017 4:22 AM 017 4:22 (specimen) EST AM EST Yuan Webber MD POINT OF CARE TEST ORDERABLE S Performing Organization Address City/[facility]/ZIP Code Phon e Number [address] Potassium (07/11/2017 2:20 AM EST) athologist Signature Potassium 4.5 3.5 - 5.0 [facility] mmol/L [facility] LAB[facility]ORY Comment: Please note: ??Patients with WBC [...] [facility]/[place] [address] POCT Glucose (07/11/2017 12:17 AM EST) athologist Signature POC Glucose 162 65 - 199 [facility] mg/dL [facility] LAB[facility]ORY Comment: Supplemental ranges: <140 mg/dL before meals <180 mg/dL all other times of the day Specimen Anatomical Collection Method Collection Time Receive d Time (Source) Location / / Volume Laterality Blood specimen 07/11/2017 12:17 7 (specimen) AM EST 12:17 AM EST Yuan Webber MD POINT OF CARE TEST ORDERABLE S Performing Organization Address City/[facility]/[place] [address] POCT Glucose (07/10/2017 8:47 PM EST) athologist Signature POC Glucose 191 65 - 199 [facility] LAB[facility]ORY Comment: Supplemental ranges: <140 mg/dL before meals <180 mg/dL all other times of the day Specimen Anatomical Collection Method Collection Time Receive d Time (Source) Location / / Volume Laterality Blood specimen 07/10/2017 8:47 PM 017 8:47 (specimen) EST PM EST Yuan Webber MD POINT OF CARE TEST ORDERABLE S Performing Organization Address City/State/[place] [address] POCT Glucose (07/10/2017 4:06 PM EST) athologist Signature POC Glucose 131 65 - 199 [place] mg/dL [facility] LAB[facility]ORY Comment: Supplemental ranges: <140 mg/dL before meals <180 mg/dL all other times of the day Specimen Anatomical Collection Method Collection Time Receive d Time (Source) Location / / Volume Laterality Blood specimen 07/10/2017 4:06 PM 017 4:06 (specimen) EST PM EST Yuan Webber MD POINT OF CARE TEST ORDERABLE S Performing Organization Address City/State/ZIP Code Phon e Number [address] POCT Glucose (07/10/2017 3:08 PM EST) athologist Signature POC Glucose 151 65 - 199 [place] mg/dL [facility] LABORATORY Comment: Supplemental ranges: <140 mg/dL before meals <180 mg/dL all other times of the day Specimen Anatomical Collection Method Collection Time Receive d Time (Source) Location / / Volume Laterality Blood specimen 07/10/2017 3:08 PM 017 3:08 (specimen) EST PM EST Yuan Webber MD POINT OF CARE TEST ORDERABLE S Performing Organization Address City/State/ZIP Code Phon e Number [address] POCT Glucose (07/10/2017 2:25 PM EST) athologist Signature POC Glucose 146 65 - 199 [facility] [place]AN mg/dL [facility] LABORATORY Comment: Supplemental ranges: <140 mg/dL before meals <180 mg/dL all other times of the day Specimen Anatomical Collection Method Collection Time Receive d Time (Source) Location / / Volume Laterality Blood specimen 07/10/2017 2:25 PM 017 2:25 (specimen) EST PM EST Yuan Webber MD POINT OF CARE TEST ORDERABLE S Performing Organization Address City/State/ZIP Code Phon e Number [address] POCT Glucose (07/10/2017 1:23 PM EST) athologist Signature POC Glucose 166 65 - 199 [place] mg/dL [facility] LABORATORY Comment: Supplemental ranges: <140 mg/dL before meals <180 mg/dL all other times of the day Specimen Anatomical Collection Method Collection Time Receive d Time (Source) Location / / Volume Laterality Blood specimen 07/10/2017 1:23 PM 017 1:23 (specimen) EST PM EST Yuan Webber MD POINT OF CARE TEST ORDERABLE S Performing Organization Address City/[facility]/[place]IP [place] [address] POCT Glucose (07/10/2017 11:52 AM EST) athologist Signature POC Glucose 157 65 - 199 [place] mg/dL [facility] LABORATORY Comment: Supplemental ranges: <140 mg/dL before meals <180 mg/dL all other times of the day Specimen Anatomical Collection Method Collection Time Receive d Time (Source) Location / / Volume Laterality Blood specimen 07/10/2017 11:52 7 (specimen) AM EST 11:52 AM EST Yuan Webber MD POINT OF CARE TEST ORDERABLE S Performing Organization Address City/State/[place] [address] POCT Glucose (07/10/2017 11:01 AM EST) athologist Signature POC Glucose 158 65 - 199 [facility] [place]YAN mg/dL [facility] LABORATORY Comment: Supplemental ranges: <140 mg/dL before meals <180 mg/dL all other times of the day Specimen Anatomical Collection Method Collection Time Receive d Time (Source) Location / / Volume Laterality Blood specimen 07/10/2017 11:01 7 (specimen) AM EST 11:01 AM EST Yuan Webber MD POINT OF CARE TEST ORDERABLE S Performing Organization Address City/State/ZIP Code Phon e Number [address] POCT Glucose (07/10/2017 9:54 AM EST) athologist Signature POC Glucose 160 65 - 199 [place] mg/dL [facility] LABORATORY Comment: Supplemental ranges: <140 mg/dL before meals <180 mg/dL all other times of the day Specimen Anatomical Collection Method Collection Time Receive d Time (Source) Location / / Volume Laterality Blood specimen 07/10/2017 9:54 AM 017 9:54 (specimen) EST AM EST Yuan Webber MD POINT OF CARE TEST ORDERABLE S Performing Organization Address City/[facility]/ZIP Code Phon e Number [address] POCT Glucose (07/10/2017 8:58 AM EST) athologist Signature POC Glucose 183 65 - 199 [place] mg/dL [facility] LABORATORY Comment: Supplemental ranges: <140 mg/dL before meals <180 mg/dL all other times of the day Specimen Anatomical Collection Method Collection Time Receive d Time (Source) Location / / Volume Laterality Blood specimen 07/10/2017 8:58 AM 017 8:58 (specimen) EST AM EST Yuan Webber MD POINT OF CARE TEST ORDERABLE S Performing Organization Address City/[facility]/[place] [address] POCT Glucose (07/10/2017 8:01 AM EST) athologist Signature POC Glucose 173 65 - 199 [place] mg/dL [facility] LABORATORY Comment: Supplemental ranges: <140 mg/dL before meals <180 mg/dL all other times of the day Specimen Anatomical Collection Method Collection Time Receive d Time (Source) Location / / Volume Laterality Blood specimen 07/10/2017 8:01 AM 017 8:01 (specimen) EST AM EST Yuan Webber MD POINT OF CARE TEST ORDERABLE S Performing Organization Address City/State/ZIP Code Phon e Number [address] POCT Glucose (07/10/2017 7:05 AM EST) athologist Signature POC Glucose 166 65 - 199 [facility] LABORATORY Comment: Supplemental ranges: <140 mg/dL before meals <180 mg/dL all other times of the day Specimen Anatomical Collection Method Collection Time Receive d Time (Source) Location / / Volume Laterality Blood specimen 07/10/2017 7:05 AM 017 7:05 (specimen) EST AM EST Yuan Webber MD POINT OF CARE TEST ORDERABLE S Performing Organization Address City/State/ZIP Code Phon e Number [address] POCT Glucose (07/10/2017 6:00 AM EST) athologist Signature POC Glucose 162 65 - 199 [facility] mg/[facility] LABORATORY Comment: Supplemental ranges: <140 mg/dL before meals <180 mg/dL all other times of the day Specimen Anatomical Collection Method Collection Time Receive d Time (Source) Location / / Volume Laterality Blood specimen 07/10/2017 6:00 AM 017 6:00 (specimen) EST AM EST uYan Webber MD POINT OF CARE TEST ORDERABLE S Performing Organization Address City/State/ZIP Code Phon e Number [address] (ABNORMAL) Differential, Automated (07/10/2017 4:28 AM EST) Patholo gist Method Time Signature Neutrophils % 87.9 % [facility] LABORATORY Neutr Abs (ANC) 10.70 (H) 1.70 - [facility] 6.10 [facility] x10(3)/[facility] L LABORATORY Lymphocytes % 3.9 % [facility] LABORATORY Lymphocytes Abs 0.5 (L) 0.9 - 3.2 [facility] x10(3)/[facility] LABORATORY Monocytes % 7.0 % [facility] LABORATORY Monocyte Abs 0.8 0.3 - 0.9 [facility] x10(3)/[facility] LABORATORY Eosinophils % 0.3 % [facility] LABORATORY Eosinophils Abs 0.0 0.0 - 0.4 [facility] x10(3)/[facility] LABORATORY Basophils % 0.2 % [facility] LABORATORY Basophils Abs 0.0 0.0 - 0.1 [facility] x10(3)/[facility] LABORATORY Immature Gran % 0.70 [...] Abs 0.08 (H) 0.00 - 0.04 x10(3)/[facility] LABORATORY Specimen Anatomical Collection Method Collection Time Receive d Time (Source) Location / / Volume Laterality Blood specimen 07/10/2017 4:28 AM 017 4:36 (specimen) EST AM EST Resulting Agency Comment Spec In Lab Yuan Webber MD HEMATOLOGY ORDERABLES Performing Organization Address City/State/[place] [address] (ABNORMAL) Hemogram (07/10/2017 4:28 AM EST) Analysis Performed At Patho logist Time Signature WBC 12.2 (H) 4.0 - 9.5 [facility] x10(3)/[facility] LABORATORY RBC 3.31 (L) 4.58 - [facility] 5.54 [facility] x10(6)/[facility] LABORATORY Hemoglobin 9.8 (L) 13.7 - [facility] 16.5 gm/dL [facility] LABORATORY Hematocrit 30.0 (L) 40.5 - [facility] 48.5 % [facility] LABORATORY MCV 90.6 82.9 - [facility] 93.1 fL [facility] LABORATORY MCH 29.6 27.5 - [facility] 32.1 pg [facility] LABORATORY MCHC 32.7 32.0 - [facility] 35.7 gm/dL [facility] LABORATORY Platelets 135 (L) 145 - 357 [facility] x10(3)/[facility] LABORATORY RDWSD 50.8 (H) 36.0 - [facility] 45.0 [facility] LABORATORY RDWCV 15.4 (H) 11.4 - [facility] 13.8 % [facility] LABORATORY MPV 10.0 7.6 - 12.9 [facility] LABORATORY nRBC % Auto 0.0 % [facility] LABORATORY nRBC Abs Auto 0.000 0.000 - [facility] 0.000 [facility] x10(3)/[facility] LABORATORY Specimen Anatomical Collection Method Collection Time Receive d Time (Source) Location / / Volume Laterality Blood specimen 07/10/2017 4:28 AM 017 4:36 (specimen) EST AM EST Resulting Agency Comment Spec In Lab Yuan Webber MD HEMATOLOGY ORDERABLES Performing Organization Address City/State/[place] [address] (ABNORMAL) Basic Metabolic Panel (non-fasting) (07/10/2017 4:28 AM EST) P athologist Signature Glucose Lvl 178 65 - 199 [facility] mg/dL [facility] LABORATORY Comment: Diabetes: >=200 mg/dL plus symp toms BUN 20 10 - 20 mg/dL [facility] LABORATORY Creatinine 1.19 0.80 - 1.50 mg/dL [facility] LABORATORY [...] Calcium 7.4 (L) 8.5 - 10.5 mg/dL [facility] LABORATORY Estimated GFR 60 >=60 [facility] LABORATORY Comment: The reported eGFR should be multiplied b y 1.2 for patients. The MDRD is not an appropriate measure o f renal function for patients with body mass extremes or in patients with acute kidney failure. http://[employer]/DHnkdep http://[employer]/DHMCnkf Specimen Anatomical Collection Method Collection Time Receive d Time (Source) Location / / Volume Laterality Blood specimen 07/10/2017 4:28 AM 017 4:36 (specimen) EST AM EST Resulting Agency Comment Spec In Lab Yuan Webber MD CHEMISTRY ORDERABLES Performing Organization Address City/State/ZIP Code Phon e Number [address] POCT Glucose (07/10/2017 4:26 AM EST) athologist Signature POC Glucose 176 65 - 199 [facility] mg/dL [facility] LABORATORY Comment: Supplemental ranges: <140 mg/dL before meals <180 mg/dL all other times of the day Specimen Anatomical Collection Method Collection Time Receive d Time (Source) Location / / Volume Laterality Blood specimen 07/10/2017 4:26 AM 017 4:26 (specimen) EST AM EST Yaun Webber MD POINT OF CARE TEST ORDERABLE S Performing Organization Address City/State/[place] [address] (ABNORMAL) POCT Glucose (07/10/2017 3:06 AM EST) athologist Signature POC Glucose 204 (H) 65 - 199 [facility] LABORATORY Comment: Supplemental ranges: <140 mg/dL before meals <180 mg/dL all other times of the day Specimen Anatomical Collection Method Collection Time Receive d Time (Source) Location / / Volume Laterality Blood specimen 07/10/2017 3:06 AM 017 3:06 (specimen) EST AM EST Yuan Webber MD POINT OF CARE TEST ORDERABLE S Performing Organization Address City/[facility]/[place] [address] (ABNORMAL) POCT Glucose (07/10/2017 2:10 AM EST) P athologist Signature POC Glucose 203 (H) 65 - 199 [place] mg/dL [facility] LABORATORY Comment: Supplemental ranges: <140 mg/dL before meals <180 mg/dL all other times of the day Specimen Anatomical Collection Method Collection Time Receive d Time (Source) Location / / Volume Laterality Blood specimen 07/10/2017 2:10 AM 017 2:10 (specimen) EST AM EST Yuan Webber MD POINT OF CARE TEST ORDERABLE S Performing Organization Address City/[facility]/[place] [address] POCT Glucose (07/10/2017 1:09 AM EST) P athologist Signature POC Glucose 196 65 - 199 [place] mg/dL [facility] LABORATORY Comment: Supplemental ranges: <140 mg/dL before meals <180 mg/dL all other times of the day Specimen Anatomical Collection Method Collection Time Receive d Time (Source) Location / / Volume Laterality Blood specimen 07/10/2017 1:09 AM 017 1:09 (specimen) EST AM EST Yuan Webber MD POINT OF CARE TEST ORDERABLE S Performing Organization Address City/State/[place] [address] POCT Glucose (07/10/2017 12:10 AM EST) P athologist Signature POC Glucose 173 65 - 199 [place] mg/dL [facility] LABORATORY Comment: Supplemental ranges: <140 mg/dL before meals <180 mg/dL all other times of the day Specimen Anatomical Collection Method Collection Time Receive d Time (Source) Location / / Volume Laterality Blood specimen 07/10/2017 12:10 7 (specimen) AM EST 12:10 AM EST Yuan Webber MD POINT OF CARE TEST ORDERABLE S Performing Organization Address City/State/ZIP Code Phon e Number [address] POCT Glucose (07/09/2017 11:01 PM EST) P athologist Signature POC Glucose 140 65 - 199 [place] mg/dL [facility] LABORATORY Comment: Supplemental ranges: <140 mg/dL before meals <180 mg/dL all other times of the day Specimen Anatomical Collection Method Collection Time Receive d Time (Source) Location / / Volume Laterality Blood specimen 07/09/2017 11:01 7 (specimen) PM EST 11:01 PM EST Yuan Webber MD POINT OF CARE TEST ORDERABLE S Performing Organization Address City/State/[place] [address] POCT Glucose (07/09/2017 10:05 PM EST) athologist Signature POC Glucose 144 65 - 199 [place] mg/dL [facility] LABORATORY Comment: Supplemental ranges: <140 mg/dL before meals <180 mg/dL all other times of the day Specimen Anatomical Collection Method Collection Time Receive d Time (Source) Location / / Volume Laterality Blood specimen 07/09/2017 10:05 7 (specimen) PM EST 10:05 PM EST Yuan Webber MD POINT OF CARE TEST ORDERABLE S Performing Organization Address City/State/[place] [address] POCT Glucose (07/09/2017 9:31 PM EST) athologist Signature POC Glucose 121 65 - 199 [facility] RYAN mg/dL [facility] LABORATORY Comment: Supplemental ranges: <140 mg/dL before meals <180 mg/dL all other times of the day Specimen Anatomical Collection Method Collection Time Receive d Time (Source) Location / / Volume Laterality Blood specimen 07/09/2017 9:31 PM 017 9:31 (specimen) EST PM EST Yuan Webber MD POINT OF CARE TEST ORDERABLE S Performing Organization Address City/State/ZIP Code Phon e Number [address] POCT Glucose (07/09/2017 9:03 PM EST) athologist Signature POC Glucose 98 65 - 199 [place] mg/dL [facility] LABORATORY Comment: Supplemental ranges: <140 mg/dL before meals <180 mg/dL all other times of the day Specimen Anatomical Collection Method Collection Time Receive d Time (Source) Location / / Volume Laterality Blood specimen 07/09/2017 9:03 PM 017 9:03 (specimen) EST PM EST Yuan Webber MD POINT OF CARE TEST ORDERABLE S Performing Organization Address City/[facility]/ZIP Code Phon e Number [address] POCT Glucose (07/09/2017 8:09 PM EST) athologist Signature POC Glucose 117 65 - 199 [place] mg/dL [facility] LABORATORY Comment: Supplemental ranges: <140 mg/dL before meals <180 mg/dL all other times of the day Specimen Anatomical Collection Method Collection Time Receive d Time (Source) Location / / Volume Laterality Blood specimen 07/09/2017 8:09 PM 017 8:09 (specimen) EST PM EST Yuan Webber MD POINT OF CARE TEST ORDERABLE S Performing Organization Address City/State/[place] [address] POCT Glucose (07/09/2017 5:40 PM EST) athologist Signature POC Glucose 155 65 - 199 [place] RY[place] mg/dL [facility] LABORATORY Comment: Supplemental ranges: <140 mg/dL before meals <180 mg/dL all other times of the day Specimen Anatomical Collection Method Collection Time Receive d Time (Source) Location / / Volume Laterality Blood specimen 07/09/2017 5:40 PM 017 5:40 (specimen) EST PM EST Yuan Webber MD POINT OF CARE TEST ORDERABLE S Performing Organization Address City/State/ZIP Code Phon e Number [address] POCT Glucose (07/09/2017 4:24 PM EST) athologist Signature POC Glucose 164 65 - 199 [place] mg/dL [facility] LABORATORY Comment: Supplemental ranges: <140 mg/dL before meals <180 mg/dL all other times of the day Specimen Anatomical Collection Method Collection Time Receive d Time (Source) Location / / Volume Laterality Blood specimen 07/09/2017 4:24 PM 017 4:24 (specimen) EST PM EST Yuan Webber MD POINT OF CARE TEST ORDERABLE S Performing Organization Address City/[facility]/ZIP Code Phon e Number [address] POCT Glucose (07/09/2017 3:19 PM EST) athologist Signature POC Glucose 166 65 - 199 [place] mg/dL [facility] LABORATORY Comment: Supplemental ranges: <140 mg/dL before meals <180 mg/dL all other times of the day Specimen Anatomical Collection Method Collection Time Receive d Time (Source) Location / / Volume Laterality Blood specimen 07/09/2017 3:19 PM 017 3:19 (specimen) EST PM EST Yuan Webber MD POINT OF CARE TEST ORDERABLE S Performing Organization Address City/[facility]/ZIP Code Phon e Number [address] POCT Glucose (07/09/2017 2:26 PM EST) athologist Signature POC Glucose 179 65 - 199 [place] mg/dL [facility] LABORATORY Comment: Supplemental ranges: <140 mg/dL before meals <180 mg/dL all other times of the day Specimen Anatomical Collection Method Collection Time Receive d Time (Source) Location / / Volume Laterality Blood specimen 07/09/2017 2:26 PM 017 2:26 (specimen) EST PM EST Yuan Webber MD POINT OF CARE TEST ORDERABLE S Performing Organization Address City/State/[place] [address] (ABNORMAL) POCT Glucose (07/09/2017 1:29 PM EST) athologist Signature POC Glucose 210 (H) 65 - 199 [place] mg/dL [facility] LABORATORY Comment: Supplemental ranges: <140 mg/dL before meals <180 mg/dL all other times of the day Specimen Anatomical Collection Method Collection Time Receive d Time (Source) Location / / Volume Laterality Blood specimen 07/09/2017 1:29 PM 017 1:29 (specimen) EST PM EST Yuan Webber MD POINT OF CARE TEST ORDERABLE S Performing Organization Address City/State/ZIP Code [place] [address] POCT Glucose (07/09/2017 12:20 PM EST) athologist Signature POC Glucose 172 65 - 199 [place] mg/dL [facility] LABORATORY Comment: Supplemental ranges: <140 mg/dL before meals <180 mg/dL all other times of the day Specimen Anatomical Collection Method Collection Time Receive d Time (Source) Location / / Volume Laterality Blood specimen 07/09/2017 12:20 7 (specimen) PM EST 12:20 PM EST Yuan Webber MD POINT OF CARE TEST ORDERABLE S Performing Organization Address City/State/ZIP Code Phon e Number [place] [address] POCT Glucose (07/09/2017 11:24 AM EST) athologist Signature POC Glucose 156 65 - 199 [place] RY[place] mg/dL [facility] LABORATORY Comment: Supplemental ranges: <140 mg/dL before meals <180 mg/dL all other times of the day Specimen Anatomical Collection Method Collection Time Receive d Time (Source) Location / / Volume Laterality Blood specimen 07/09/2017 11:24 7 (specimen) AM EST 11:24 AM EST Yuan Webber MD POINT OF CARE TEST ORDERABLE S Performing Organization Address City/State/ZIP Code Phon e Number [address] POCT Glucose (07/09/2017 11:11 AM EST) P athologist Signature POC Glucose 172 65 - 199 [facility] RYAN mg/dL [facility] LABORATORY Comment: Supplemental ranges: <140 mg/dL before meals <180 mg/dL all other times of the day Specimen Anatomical Collection Method Collection Time Receive d Time (Source) Location / / Volume Laterality Blood specimen 07/09/2017 11:11 7 (specimen) AM EST 11:11 AM EST Yuan Webber MD POINT OF CARE TEST ORDERABLE S Performing Organization Address City/State/ZIP Code Phon e Number [address] POCT Glucose (07/09/2017 10:08 AM EST) athologist Signature POC Glucose 176 65 - 199 [facility] LABORATORY Comment: Supplemental ranges: <140 mg/dL before meals <180 mg/dL all other times of the day Specimen Anatomical Collection Method Collection Time Receive d Time (Source) Location / / Volume Laterality Blood specimen 07/09/2017 10:08 7 (specimen) AM EST 10:08 AM EST Yuan Webber MD POINT OF CARE TEST ORDERABLE S Performing Organization Address City/State/ZIP Code Phon e Number [place] [id number] [address] POCT Glucose (07/09/2017 8:02 AM EST) athologist Signature POC Glucose 178 65 - 199 [facility] RYAN mg/dL [facility] LABORATORY Comment: Supplemental ranges: <140 mg/dL before meals <180 mg/dL all other times of the day Specimen Anatomical Collection Method Collection Time Receive d Time (Source) Location / / Volume Laterality Blood specimen 07/09/2017 8:02 AM 017 8:02 (specimen) EST AM EST Yuan Webber MD POINT OF CARE TEST ORDERABLE S Performing Organization Address City/State/[place] [address] (ABNORMAL) BLOOD GAS 2 ARTERIAL (07/09/2017 5:37 AM EST) Analysis Performed At Patho logist Time Signature pH Art 7.36 7.35 - [facility] 7.45 [facility] LABORATORY pCO2 Art 38 35 - 45 [facility] mmHg [facility] LABORATORY pO2 Art 79 (L) 85 - 104 [facility] mmHg [facility] LABORATORY HCO3 Art 20.9 20.0 - [facility] 26.0 [facility] mmol/L [facility] LABORATORY BE Art -4.6 (L) -3.0 - 3.0 [facility] mmol/L [facility] LABORATORY Hgb Blood Gas 10.5 (L) 13.7 - [facility] 16.5 gm/dL [facility] LABORATORY O2HB Art 93.8 (L) 94.0 - [facility] 97.0 % [facility] LABORATORY COHB Art 0.3 % [place] [...] Blood 113 (H) 98 - 107 mmol/L [facility] LABORATORY Gluc Whole Bld 175 65 - 199 mg/dL [facility] Comment: Diabetes: >=200 mg/dL plus symp toms. Lactate WB 1.0 0.5 - 2.2 mmol/L [facility] LABORATORY FIO2 Art 40 % [facility] LABOR[facility] PF Ratio Art 198 [facility] LABOR[facility]ORY Specimen Anatomical Collection Method Collection Time Receive d Time (Source) Location / / Volume Laterality Blood specimen 07/09/2017 5:37 AM 017 5:37 (specimen) EST AM EST Yuan Webber MD CHEMISTRY ORDERABLES Performing Organization Address City/[facility]/ZIP Code Phon e Number [address] POCT Glucose (07/09/2017 3:27 AM EST) athologist Signature POC Glucose 192 65 - 199 [facility] mg/dL [facility] LABOR[facility]ORY Comment: Supplemental ranges: <140 mg/dL before meals <180 mg/dL all other times of the day Specimen Anatomical Collection Method Collection Time Receive d Time (Source) Location / / Volume Laterality Blood specimen 07/09/2017 3:27 AM 017 3:27 (specimen) EST AM EST Yuan Webber MD POINT OF CARE TEST ORDERABLE S Performing Organization Address City/[facility]/[place] [address] (ABNORMAL) Basic Metabolic Panel (non-fasting) (07/09/2017 2:30 AM EST) athologist Signature Glucose Lvl 179 65 - 199 [facility] LABORATORY Comment: Diabetes: >=200 mg/dL plus symp toms BUN 17 10 - 20 mg/dL [facility] LABORATORY Creatinine 1.34 0.80 - 1.50 mg/dL [facility] LABORATORY Sodium 144 135 - 145 mmol/L [facility] LABORATORY Potassium Not Perf 3.5 - 5.0 mmol/L [facility]ORATORY Comment: Duplicate order [...] Calcium 7.1 (L) 8.5 - 10.5 mg/dL [facility] LABORATORY Comment: result rechecked-JLK Estimated GFR 53 (L) >=60 [facility] Comment: The reported eGFR should be multiplied b y 1.2 for patients. The MDRD is not an appropriate measure o f renal function for patients with body mass extremes or in patients with acute kidney failure. http://[employer]/DHnkdep http://[employer]/DHMCnkf Specimen Anatomical Collection Method Collection Time Receive d Time (Source) Location / / Volume Laterality Blood specimen Venous Draw / 07/09/2017 2:30 AM 2016 2:42 (specimen) Unknown EST AM EST Resulting Agency Comment Spec In Lab Yuan Webber MD CHEMISTRY ORDERABLES Performing Organization Address City/[facility]/[place] [address] (ABNORMAL) Potassium (07/09/2017 2:30 AM EST) P athologist Signature Potassium 5.1 (H) 3.5 - 5.0 [facility] mmol/L [facility] LABORATORY Comment: Please note: ??Patients with WBC [...] Organization Address City/[facility]/ZIP [facility] [place] [place] [address] (ABNORMAL) Hemogram (07/09/2017 2:30 AM EST) Analysis Performed At Patho logist Time Signature WBC 12.5 (H) 4.0 - 9.5 [facility] x10(3)/[facility] LABORATORY RBC 3.38 (L) 4.58 - [place] 5.54 [facility] x10(6)/[facility] LABORATORY Hemoglobin 10.1 (L) 13.7 - [place] ZHAORYAN 16.5 gm/dL [facility] LABORATORY Hematocrit 30.3 (L) 40.5 - [place] 48.5 % [facility] LABORATORY MCV 89.6 82.9 - [facility] 93.1 [facility] LABORATORY MCH 29.9 27.5 - [place] ZHAORYAN 32.1 pg [facility] LABORATORY MCHC 33.3 32.0 - [place] ZHAORY[place] 35.7 gm/dL [facility] LABORATORY Platelets 127 (L) 145 - 357 [facility] x10(3)/[facility] LABORATORY RDWSD 49.3 (H) 36.0 - [facility] 45.0 [facility] LABORATORY RDWCV 15.2 (H) 11.4 - [facility] 13.8 % [facility] LABORATORY MPV 9.9 7.6 - 12.9 [facility] LABORATORY nRBC % Auto 0.0 % [facility] LABORATORY nRBC Abs Auto 0.000 0.000 - [place] RYAN 0.000 [facility] x10(3)/[facility] LABORATORY Specimen Anatomical Collection Method Collection Time Receive d Time (Source) Location / / Volume Laterality Blood specimen 07/09/2017 2:30 AM 017 2:41 (specimen) EST AM EST Resulting Agency Comment Spec In Lab Yuan Webber MD HEMATOLOGY ORDERABLES Performing Organization Address City/State/[place]IP [place] [address] POCT Glucose (07/09/2017 2:10 AM EST) P athologist Signature POC Glucose 169 65 - 199 [facility] mg/dL [facility] LABORATORY Comment: Supplemental ranges: <140 mg/dL before meals <180 mg/dL all other times of the day Specimen Anatomical Collection Method Collection Time Receive d Time (Source) Location / / Volume Laterality Blood specimen 07/09/2017 2:10 AM 017 2:10 (specimen) EST AM EST Yuan Webber MD POINT OF CARE TEST ORDERABLE S Performing Organization Address City/State/[place] [address] POCT Glucose (07/09/2017 1:01 AM EST) P athologist Signature POC Glucose 173 65 - 199 K[place]ALINA DAVIS mg/dL [facility] LABORATORY Comment: Supplemental ranges: <140 mg/dL before meals <180 mg/dL all other times of the day Specimen Anatomical Collection Method Collection Time Receive d Time (Source) Location / / Volume Laterality Blood specimen 07/09/2017 1:01 AM 017 1:01 (specimen) EST AM EST Yuan Webber MD POINT OF CARE TEST ORDERABLE S Performing Organization Address City/[facility]/[place] [address] Blood culture (07/09/2017 12:40 AM EST) Patholo gist Method Time Signature Blood Culture No growth K[place]INA DAVIS at 5 days. [facility] LABORATORY Specimen Anatomical Collection Method Collection Time Receive d Time (Source) Location / / Volume Laterality Blood specimen STRUCTURE OF RIGHT 07/09/2017 12:40 3:58 (specimen) UPPER LIMB / AM EST AM EST Unknown Resulting Agency Comment Spec In Lab Yuan Webber MD MICROBIOLOGY - BLOOD ORDERAB LES Performing Organization Address City/State/ZIP Code [place] [address] Blood culture (07/09/2017 12:30 AM EST) Patholo gist Method Time Signature Blood Culture No growth K[place]ALINA DAVIS at 5 days. [facility] LABORATORY Specimen Anatomical Collection Method Collection Time Receive d Time (Source) Location / / Volume Laterality Blood specimen STRUCTURE OF LEFT 07/09/2017 12:30 06/25 3:59 (specimen) UPPER LIMB / AM EST AM EST Unknown Resulting Agency Comment Spec In Lab Yuan Webber MD MICROBIOLOGY - BLOOD ORDERAB LES Performing Organization Address City/State/[place] [address] (ABNORMAL) Urinalysis Microscopic Exam (07/09/2017 12:05 AM EST) Analysis Performed At Patho logist Time Signature RBC UA 32 (H) 0 - 3 /HPF [facility] LABORATORY WBC UA 5 (H) 0 - 3 /HPF [facility]OR[facility]ORY Squam Epith UA <1 <=4 /HPF [facility]ORY Hyaline Cast 17 (H) 0 - 2 /LPF [facility] LABORATORY Gran Cast UA 1 (H) <=0 /LPF [facility]OR[facility]ORY Uric Ac Bianca Rare (A) None /HPF [facility] LABORATORY Specimen (Source) Anatomical Collection Method Collection Time Re ceived Time Location / / Volume Laterality Urine specimen 07/09/2017 12:05 7 obtained via AM EST 12:39 AM EST indwelling urinary catheter (specimen) Resulting Agency Comment Spec In Lab Yuan Webber MD URINE ORDERABLES Performing Organization Address City/[facility]/[place] [address] (ABNORMAL) Urinalysis with reflex Culture (07/09/2017 12:05 AM EST) Patholo gist Method Time Signature Glucose UA Negative Negative [facility] mg/dL [facility] LABORATORY Protein UA 30 (A) Negative [facility] mg/dL [facility] LABORATORY Bilirubin UA Negative Negative [facility] mg/dL [facility] LABORATORY Comment: Clinical correlation required for positi ve Urine Bilirubin results as false positive may occur with some drugs and d rug related products. If a false positive is suspected a serum total bili yeager should be considered if clinically indicated. Urobilinogen UA Normal Normal mg/dL [facility] pH UA 5.0 5.0 - 8.0 [facility] Blood UA Moderate (A) Negative mg/dL [facility]OR[facility]ORY Ketones UA Negative Negative mg/dL [facility] Nitrite UA Negative Negative [facility] LAB[facility] Leukocytes UA Negative Negative [facility] LABORATORY Appearance UA Hazy (A) Clear [facility] LABOR[facility] Spec [place] UA 1.025 1.002 - 1.030 [facility] Color UA Yellow Yellow [facility] Culture Reflexed No [facility] LABORATORY Specimen (Source) Anatomical Collection Method Collection Time Re ceived Time Location / / Volume Laterality Urine specimen 07/09/2017 12:05 7 obtained via AM EST 12:39 AM EST indwelling urinary catheter (specimen) Resulting Agency Comment Spec In Lab Yuan Webber MD URINE ORDERABLES Performing Organization Address City/[facility]/ZIP Code Phon e Number [address] POCT Glucose (07/08/2017 11:01 PM EST) P athologist Signature POC Glucose 191 65 - 199 [facility] mg/dL [facility] LABORATORY Comment: Supplemental ranges: <140 mg/dL before meals <180 mg/dL all other times of the day Specimen Anatomical Collection Method Collection Time Receive d Time (Source) Location / / Volume Laterality Blood specimen 07/08/2017 11:01 7 (specimen) PM EST 11:01 PM EST Yuan Webber MD POINT OF CARE TEST ORDERABLE S Performing Organization Address City/[facility]/ZIP Code Phon e Number [address] POCT Glucose (07/08/2017 10:04 PM EST) P athologist Signature POC Glucose 198 65 - 199 [facility] LABORATORY Comment: Supplemental ranges: <140 mg/dL before meals <180 mg/dL all other times of the day Specimen Anatomical Collection Method Collection Time Receive d Time (Source) Location / / Volume Laterality Blood specimen 07/08/2017 10:04 7 (specimen) PM EST 10:04 PM EST Yuan Webber MD POINT OF CARE TEST ORDERABLE S Performing Organization Address City/State/[place] [address] Prepare Albumin 5% in 250 mL (07/08/2017 8:49 PM EST) athologist Signature Dispensed? Yes [facility] LABOR[facility]ORY Specimen Anatomical Collection Method Collection Time Receive d Time (Source) Location / / Volume Laterality Blood specimen No Charge / 07/08/2017 8:49 PM 017 8:51 (specimen) Unknown EST PM EST Resulting Agency Comment Spec In Lab [facility] ORDERABLES Performing Organization Address City/State/[place] [address] POCT Glucose (07/08/2017 8:28 PM EST) athologist Signature POC Glucose 195 65 - 199 [facility] mg/dL [facility] LABORATORY Comment: Supplemental ranges: <140 mg/dL before meals <180 mg/dL all other times of the day Specimen Anatomical Collection Method Collection Time Receive d Time (Source) Location / / Volume Laterality Blood specimen 07/08/2017 8:28 PM 017 8:28 (specimen) EST PM EST Yuan Webber MD POINT OF CARE TEST ORDERABLE S Performing Organization Address City/[facility]/[place] [address] (ABNORMAL) POCT Glucose (07/08/2017 7:13 PM EST) athologist Signature POC Glucose 220 (H) 65 - 199 [facility] mg/dL [facility] LABORATORY Comment: Supplemental ranges: <140 mg/dL before meals <180 mg/dL all other times of the day Specimen Anatomical Collection Method Collection Time Receive d Time (Source) Location / / Volume Laterality Blood specimen 07/08/2017 7:13 PM 017 7:13 (specimen) EST PM EST Yuan Webber MD POINT OF CARE TEST ORDERABLE S Performing Organization Address City/State/[place] [address] POCT Glucose (07/08/2017 5:04 PM EST) P athologist Signature POC Glucose 147 65 - 199 [facility] mg/dL [facility] LABORATORY Comment: Supplemental ranges: <140 mg/dL before meals <180 mg/dL all other times of the day Specimen Anatomical Collection Method Collection Time Receive d Time (Source) Location / / Volume Laterality Blood specimen 07/08/2017 5:04 PM 017 5:04 (specimen) EST PM EST Yuan Webber MD POINT OF CARE TEST ORDERABLE S Performing Organization Address City/State/[place] [address] (ABNORMAL) BLOOD GAS 2 ARTERIAL (07/08/2017 4:13 PM EST) Analysis Performed At Patho logist Time Signature pH Art 7.38 7.35 - [facility] 7.45 [facility] LABORATORY pCO2 Art 36 35 - 45 [facility] LABORATORY pO2 Art 91 85 - 104 [facility] LABORATORY HCO3 Art 20.9 20.0 - [facility] 26.0 [facility] mmol/L [facility] LABORATORY BE Art -4.2 (L) -3.0 - 3.0 [facility] mmol/L [facility] LABORATORY Hgb Blood Gas 11.7 (L) 13.7 - [facility] 16.5 gm/dL [facility] LABORATORY O2HB Art 95.1 94.0 - [facility] 97.0 % [facility] LABORATORY COHB Art 0.6 % [place] [...] Blood 110 (H) 98 - 107 mmol/L [facility] LABORATORY Gluc Whole Bld 155 65 - 199 mg/dL [facility] LAB[facility] Comment: Diabetes: >=200 mg/dL plus symp toms. Lactate WB 1.4 0.5 - 2.2 mmol/L [facility] LABORATORY FIO2 Art 40 % [facility] LABORATORY PF Ratio Art 228 [facility] LABORATORY Specimen Anatomical Collection Method Collection Time Receive d Time (Source) Location / / Volume Laterality Blood specimen 07/08/2017 4:13 PM 017 4:13 (specimen) EST PM EST Yuan Webber MD CHEMISTRY ORDERABLES Performing Organization Address City/[facility]/ZIP [facility] Phon e Number [address] POCT Glucose (07/08/2017 4:01 PM EST) athologist Signature POC Glucose 148 65 - 199 [facility] mg/dL [facility] LABORATORY Comment: Supplemental ranges: <140 mg/dL before meals <180 mg/dL all other times of the day Specimen Anatomical Collection Method Collection Time Receive d Time (Source) Location / / Volume Laterality Blood specimen 07/08/2017 4:01 PM 017 4:01 (specimen) EST PM EST Yuan Webber MD POINT OF CARE TEST ORDERABLE S Performing Organization Address City/[facility]/ZIP [facility] Phon e Number [address] POCT Glucose (07/08/2017 3:21 PM EST) P athologist Signature POC Glucose 118 65 - 199 [facility] mg/dL [facility] LABORATORY Comment: Supplemental ranges: <140 mg/dL before meals <180 mg/dL all other times of the day Specimen Anatomical Collection Method Collection Time Receive d Time (Source) Location / / Volume Laterality Blood specimen 07/08/2017 3:21 PM 017 3:21 (specimen) EST PM EST Yuan Webber MD POINT OF CARE TEST ORDERABLE S Performing Organization Address City/State/[place] [address] POCT Glucose (07/08/2017 2:01 PM EST) P athologist Signature POC Glucose 129 65 - 199 [place] RYAN mg/dL [facility] LABORATORY Comment: Supplemental ranges: <140 mg/dL before meals <180 mg/dL all other times of the day Specimen Anatomical Collection Method Collection Time Receive d Time (Source) Location / / Volume Laterality Blood specimen 07/08/2017 2:01 PM 017 2:01 (specimen) EST PM EST Yuan Webber MD POINT OF CARE TEST ORDERABLE S Performing Organization Address City/State/[place] [address] POCT Glucose (07/08/2017 11:53 AM EST) athologist Signature POC Glucose 156 65 - 199 [place]AL[place] RYAN mg/dL [facility] LABORATORY Comment: Supplemental ranges: <140 mg/dL before meals <180 mg/dL all other times of the day Specimen Anatomical Collection Method Collection Time Receive d Time (Source) Location / / Volume Laterality Blood specimen 07/08/2017 11:53 7 (specimen) AM EST 11:53 AM EST Yuan Webber MD POINT OF CARE TEST ORDERABLE S Performing Organization Address City/State/[place] [address] POCT Glucose (07/08/2017 11:04 AM EST) athologist Signature POC Glucose 181 65 - 199 [place] ZHAORYAN mg/dL [facility] LABORATORY Comment: Supplemental ranges: <140 mg/dL before meals <180 mg/dL all other times of the day Specimen Anatomical Collection Method Collection Time Receive d Time (Source) Location / / Volume Laterality Blood specimen 07/08/2017 11:04 7 (specimen) AM EST 11:04 AM EST Yuan Webber MD POINT OF CARE TEST ORDERABLE S Performing Organization Address City/[facility]/[place] [address] (ABNORMAL) POCT Glucose (07/08/2017 9:24 AM EST) athologist Signature POC Glucose 203 (H) 65 - 199 [facility] mg/dL [facility] LABORATORY Comment: Supplemental ranges: <140 mg/dL before meals <180 mg/dL all other times of the day Specimen Anatomical Collection Method Collection Time Receive d Time (Source) Location / / Volume Laterality Blood specimen 07/08/2017 9:24 AM 017 9:24 (specimen) EST AM EST Yuan Webber MD POINT OF CARE TEST ORDERABLE S Performing Organization Address [facility] [place] [address] APTT (07/08/2017 8:40 AM EST) athologist [facility] PTT [phone] - 35 sec [facility] Comment: The recommended therapeutic range for fu ll dose, unfractionated heparin at [facility] is 80 ? 114 seconds. The use [...] [facility]/[place] [address] (ABNORMAL) Prothrombin Time (07/08/2017 8:40 AM EST) athologist [facility] PT 15.6 (H) 11.8 - 14.0 [facility] [...] Address City/State/[place] [address] (ABNORMAL) POCT Glucose (07/08/2017 7:38 AM EST) athologist Signature POC Glucose 232 (H) 65 - 199 [facility] mg/dL [facility] LABORATORY Comment: Supplemental ranges: <140 mg/dL before meals <180 mg/dL all other times of the day Specimen Anatomical Collection Method Collection Time Receive d Time (Source) Location / / Volume Laterality Blood specimen 07/08/2017 7:38 AM 017 7:38 (specimen) EST AM EST Yuan Webber MD POINT OF CARE TEST ORDERABLE S Performing Organization Address City/[facility]/[place] [address] (ABNORMAL) POCT Glucose (07/08/2017 7:07 AM EST) athologist Signature POC Glucose 234 (H) 65 - 199 [facility] mg/dL [facility] LABORATORY Comment: Supplemental ranges: <140 mg/dL before meals <180 mg/dL all other times of the day Specimen Anatomical Collection Method Collection Time Receive d Time (Source) Location / / Volume Laterality Blood specimen 07/08/2017 7:07 AM 017 7:07 (specimen) EST AM EST Yuan Webber MD POINT OF CARE TEST ORDERABLE S Performing Organization Address City/State/[place] [address] (ABNORMAL) POCT Glucose (07/08/2017 6:04 AM EST) athologist Signature POC Glucose 225 (H) 65 - 199 [facility] mg/dL [facility] LABORATORY Comment: Supplemental ranges: <140 mg/dL before meals <180 mg/dL all other times of the day Specimen Anatomical Collection Method Collection Time Receive d Time (Source) Location / / Volume Laterality Blood specimen 07/08/2017 6:04 AM 017 6:04 (specimen) EST AM EST Yuan Webber MD POINT OF CARE TEST ORDERABLE S Performing Organization Address City/State/[place] [address] (ABNORMAL) POCT Glucose (07/08/2017 5:31 AM EST) athologist Signature POC Glucose 216 (H) 65 - 199 [facility] mg/dL [facility] LABORATORY Comment: Supplemental ranges: <140 mg/dL before meals <180 mg/dL all other times of the day Specimen Anatomical Collection Method Collection Time Receive d Time (Source) Location / / Volume Laterality Blood specimen 07/08/2017 5:31 AM 017 5:31 (specimen) EST AM EST Yuan Webber MD POINT OF CARE TEST ORDERABLE S Performing Organization Address City/[facility]/[place] [address] (ABNORMAL) POCT Glucose (07/08/2017 4:52 AM EST) athologist Signature POC Glucose 257 (H) 65 - 199 [facility] mg/dL [facility] LABORATORY Comment: Supplemental ranges: <140 mg/dL before meals <180 mg/dL all other times of the day Specimen Anatomical Collection Method Collection Time Receive d Time (Source) Location / / Volume Laterality Blood specimen 07/08/2017 4:52 AM 017 4:52 (specimen) EST AM EST Daphne Shahid MD POINT OF CARE TEST ORDERABLE S Performing Organization Address City/State/[place] [address] (ABNORMAL) BLOOD GAS 2 ARTERIAL (07/08/2017 4:04 AM EST) Analysis Performed At Patho logist Time Signature pH Art 7.30 (L) 7.35 - [facility] 7.45 [facility] LABORATORY pCO2 Art 41 35 - 45 [facility] mmHg [facility] LABORATORY pO2 Art 83 (L) 85 - 104 [facility] mmHg [facility] LABORATORY HCO3 Art 19.6 (L) 20.0 - [facility] 26.0 [facility] mmol/L [facility] LABOR[facility] BE Art -6.8 (L) -3.0 - 3.0 [facility] mmol/L [facility] LABORATORY Hgb Blood Gas 12.2 (L) 13.7 - [facility] 16.5 gm/dL [facility] O2HB Art 93.5 (L) 94.0 - [facility] 97.0 % [facility] COHB Art 0.4 % [facility] [...] Whole Blood 107 98 - 107 mmol/L [facility]ORY Gluc Whole Bld 274 (H) 65 - 199 mg/dL [facility] Comment: Diabetes: >=200 mg/dL plus symp toms. Lactate WB 4.4 (Critical) 0.5 - 2.2 mmol/L [facility] Comment: Noted by band instrument maker. FIO2 Art 40 % [facility] LABOR[facility] PF Ratio Art 208 [facility] Specimen Anatomical Collection Method Collection Time Receive d Time (Source) Location / / Volume Laterality Blood specimen 07/08/2017 4:04 AM 017 4:04 (specimen) EST AM EST Daphne Shahid MD CHEMISTRY ORDERABLES Performing Organization Address City/[facility]/ZIP Code Phon e Number [address] Scan, Peripheral Blood (07/08/2017 [...] [facility]/ZIP Code Phon e Number [address] (ABNORMAL) Differential, Automated (07/08/2017 4:00 AM EST) Patholo gist Method Time Signature Neutrophils % 85.4 % [facility] LABORATORY Neutr Abs (ANC) 16.07 (H) 1.70 - [facility] 6.10 [facility] x10(3)/[facility] LABORATORY Lymphocytes % 3.5 % [facility] LABORATORY Lymphocytes Abs 0.6 (L) 0.9 - 3.2 [facility] x10(3)/[facility] LABORATORY Monocytes % 10.4 % [facility] LABORATORY Monocyte Abs 2.0 (H) 0.3 - 0.9 [facility] x10(3)/[facility] LABORATORY Eosinophils % 0.0 % [facility] LABORATORY Eosinophils Abs 0.0 0.0 - 0.4 [facility] x10(3)/[facility] LABORATORY Basophils % 0.1 % [facility] LABORATORY Basophils Abs 0.0 0.0 - 0.1 [facility] x10(3)/[facility] LABORATORY Immature Gran % 0.60 [...] Abs 0.12 (H) 0.00 - 0.04 x10(3)/[facility] LABORATORY Specimen Anatomical Collection Method Collection Time Receive d Time (Source) Location / / Volume Laterality Blood specimen 07/08/2017 4:00 AM 017 4:09 (specimen) EST AM EST Resulting Agency Comment Spec In Lab Yuan Webber MD HEMATOLOGY ORDERABLES Performing Organization Address City/State/ZIP Code Phon e Number [place] [id number] LAB[address]ORY Drive (ABNORMAL) Hemogram (07/08/2017 4:00 AM EST) Analysis Performed At Patho logist Time Signature WBC 18.8 (H) 4.0 - 9.5 [facility] x10(3)/[facility] LABORATORY RBC 4.00 (L) 4.58 - [facility] RYAN 5.54 [facility] x10(6)/[facility] LABORATORY Hemoglobin 11.9 (L) 13.7 - [facility] 16.5 gm/dL [facility] LABORATORY Hematocrit 35.9 (L) 40.5 - [facility] 48.5 % [facility] LABORATORY MCV 89.8 82.9 - [facility] 93.1 [facility] LABORATORY MCH 29.8 27.5 - [place] 32.1 pg [facility] LABORATORY MCHC 33.1 32.0 - [facility] 35.7 gm/dL [facility] LABORATORY Platelets 232 145 - 357 [facility] x10(3)/[facility] RDWSD 47.6 (H) 36.0 - [place] [facility] [address] [facility] RDWCV 14.5 (H) 11.4 - [facility] 13.8 % [facility] LABORATORY MPV 9.5 7.6 - 12.9 [facility] LABORATORY nRBC % Auto 0.0 % [facility] LABORATORY nRBC Abs Auto 0.000 0.000 - [facility] 0.000 [facility] x10(3)/[facility] LABORATORY Specimen Anatomical Collection Method Collection Time Receive d Time (Source) Location / / Volume Laterality Blood specimen 07/08/2017 4:00 AM 017 4:09 (specimen) EST AM EST Resulting Agency Comment Spec In Lab Yuan Webber MD HEMATOLOGY ORDERABLES Performing Organization Address City/State/[place] [address] (ABNORMAL) Electrolytes panel (07/08/2017 4:00 AM EST) athologist Signature Sodium 139 135 - 145 [facility] mmol/L [facility] LABORATORY Potassium 4.7 3.5 - 5.0 [facility] mmol/L [facility] LABORATORY Comment: result rechecked-JLK Please note: ??Patients [...] [facility]/[place] [address] (ABNORMAL) Cardiac Enzymes (LEB/CGP) (07/08/2017 4:00 AM EST) P athologist Signature Troponin-T 1.88 (H) 0.00 - [facility] 0.00 ng/mL [facility] LABORATORY Comment: The 99th percentile for Troponin T is le ss than 0.01 ng/mL, any detectable cTnT concentration using this assay should be considered elevated. According to the third universal definit ion of myocardial infarction the following criteria with a clinical prese ntation consistent with acute myocardial ischemia meets the diagnosis for a myocardial infarction ([place]). Detection of a rise and/or fall of [...] additional sample may be indicated. Reference: Third [place] Definition of Myocardial Infarction. Journal of the [place] [employer] 2012;60:1581-98 CK, Total 413 (H) 0 - 200 unit/L [facility] LABORATORY Comment: result rechecked-K Specimen Anatomical Collection Method Collection Time Receive d Time (Source) Location / / Volume Laterality Blood specimen 07/08/2017 4:00 AM 017 4:09 (specimen) EST AM EST Resulting Agency Comment Spec In Lab Yuan Webbre MD CHEMISTRY ORDERABLES Performing Organization Address City/State/[place] [address] (ABNORMAL) Glucose, fasting (07/08/2017 4:00 AM EST) athologist Signature Glucose 287 (H) 65 - 99 [facility] Fasting mg/dL [facility] LABORATORY Comment: ?Fasting* Glucose Interpretive C riteria [...] of Diabetes Mellitus, Position Statement from the [place] [employer]. ??Diabete s Care, Volume 33, Supplement 1, Jul 2009 Specimen Anatomical Collection Method Collection Time Receive d Time (Source) Location / / Volume Laterality Blood specimen 07/08/2017 4:00 AM 017 4:09 (specimen) EST AM EST Resulting Agency Comment Spec In Lab Yuan Webber MD CHEMISTRY ORDERABLES Performing Organization Address [facility] Phon e Number [address] (ABNORMAL) Creatinine (07/08/2017 4:00 AM EST) Analysis Performed At Patho logist Time Signature Creatinine 1.55 (H) 0.80 - [facility] 1.50 mg/dL [facility] LABORATORY Estimated GFR 44 (L) >=60 [facility] LABORATORY Comment: The reported eGFR should be multiplied b y 1.2 for patients. The MDRD is not an appropriate measure o f renal function for patients with body mass extremes or in patients with acute kidney failure. http://Celles.BuzzStream/DHnkdep http://Rasmussen Reports/DHMCnkf Specimen Anatomical Collection Method Collection Time Receive d Time (Source) Location / / Volume Laterality Blood specimen 07/08/2017 4:00 AM 017 4:09 (specimen) EST AM EST Resulting Agency Comment Spec In Lab Yuan Webber MD CHEMISTRY ORDERABLES Performing Organization Address [facility] Phon e Number [address] BUN (07/08/2017 4:00 AM EST) P athologist Signature BUN 16 10 - 20 [facility] LABORATORY Specimen Anatomical Collection Method Collection Time Receive d Time (Source) Location / / Volume Laterality Blood specimen 07/08/2017 4:00 AM 017 4:09 (specimen) EST AM EST Resulting Agency Comment Spec In Lab Yuan Webber MD CHEMISTRY ORDERABLES Performing Organization Address City/State/[place] [address] (ABNORMAL) POCT Glucose (07/08/2017 3:00 AM EST) athologist Signature POC Glucose 273 (H) 65 - 199 [place] [facility] mg/dL [facility] LABORATORY Comment: Supplemental ranges: <140 mg/dL before meals <180 mg/dL all other times of the day Specimen Anatomical Collection Method Collection Time Receive d Time (Source) Location / / Volume Laterality Blood specimen 07/08/2017 3:00 AM 017 3:00 (specimen) EST AM EST Daphne Shahid MD POINT OF CARE TEST ORDERABLE S Performing Organization Address City/[facility]/[place] [address] (ABNORMAL) POCT Glucose (07/08/2017 1:57 AM EST) athologist Signature POC Glucose 288 (H) 65 - 199 [facility] mg/dL [facility] LABORATORY Comment: Supplemental ranges: <140 mg/dL before meals <180 mg/dL all other times of the day Specimen Anatomical Collection Method Collection Time Receive d Time (Source) Location / / Volume Laterality Blood specimen 07/08/2017 1:57 AM 017 1:57 (specimen) EST AM EST Daphne Shahid MD POINT OF CARE TEST ORDERABLE S Performing Organization Address City/State/[place] [address] (ABNORMAL) POCT Glucose (07/08/2017 1:01 AM EST) athologist Signature POC Glucose 315 (H) 65 - 199 [place] mg/dL [facility] LABORATORY Comment: Supplemental ranges: <140 mg/dL before meals <180 mg/dL all other times of the day Specimen Anatomical Collection Method Collection Time Receive d Time (Source) Location / / Volume Laterality Blood specimen 07/08/2017 1:01 AM 017 1:01 (specimen) EST AM EST Daphne Shahid MD POINT OF CARE TEST ORDERABLE S Performing Organization Address City/State/[place] [address] (ABNORMAL) BLOOD GAS 2 ARTERIAL (07/08/2017 12:09 AM EST) athologist Signature pH Art 7.26 7.35 - [facility] (Critical) 7.45 [facility] LABORATORY Comment: Noted by band instrument maker. pCO2 Art 41 35 - 45 mmHg [facility] LAB[facility]ORY pO2 Art 96 85 - 104 mmHg [facility] LABORATORY HCO3 Art 17.7 (L) 20.0 - 26.0 mmol/L [facility] LABORAT[facility] BE Art -9.4 (L) -3.0 - 3.0 mmol/L [facility] LABORATORY Hgb Blood Gas 12.4 (L) 13.7 - 16.5 gm/dL [facility] LABORAT[facility] O2HB Art 94.7 94.0 - 97.0 % [facility] COHB Art 0.2 % [facility] [...] Blood 109 (H) 98 - 107 mmol/L [facility] Gluc Whole Bld 315 (H) 65 - 199 mg/dL [facility] LABOR[facility] Comment: Diabetes: >=200 mg/dL plus symp toms. Lactate WB 7.6 (Critical) 0.5 - 2.2 mmol/L [facility] LABOR[facility]ORY Comment: Noted by band instrument maker. FIO2 Art 40 % [facility] LABORATORY PF Ratio Art 240 [facility]ORY Specimen Anatomical Collection Method Collection Time Receive d Time (Source) Location / / Volume Laterality Blood specimen Arterial Draw / 07/08/2017 12:09 2016 5:31 (specimen) Unknown AM EST AM EST Resulting Agency Comment Spec In Lab Samy Maldonado MD CHEMISTRY ORDERABLES Performing Organization Address City/State/[place] [address] (ABNORMAL) POCT Glucose (07/07/2017 10:56 PM EST) P athologist Signature POC Glucose 292 (H) 65 - 199 [facility] mg/dL [facility] LABORATORY Comment: Supplemental ranges: <140 mg/dL before meals <180 mg/dL all other times of the day Specimen Anatomical Collection Method Collection Time Receive d Time (Source) Location / / Volume Laterality Blood specimen 07/07/2017 10:56 7 (specimen) PM EST 10:56 PM EST Daphne Shahid MD POINT OF CARE TEST ORDERABLE S Performing Organization Address City/[facility]/[place] [address] (ABNORMAL) BLOOD GAS 2 ARTERIAL (07/07/2017 10:04 PM EST) P athologist Signature pH Art 7.22 7.35 - [facility] (Critical) 7.45 [facility] LABORATORY Comment: Noted by band instrument maker. pCO2 Art 42 35 - 45 mmHg [facility]ORY pO2 Art 94 85 - 104 mmHg [facility] HCO3 Art 16.9 (L) 20.0 - 26.0 mmol/L [facility] LABORAT[facility] BE Art -10.7 (L) -3.0 - 3.0 mmol/L [facility] LABORATORY Hgb Blood Gas 13.0 (L) 13.7 - 16.5 gm/dL [facility] O2HB Art 93.8 (L) 94.0 - 97.0 % [facility] COHB Art 0.7 % [facility] LAB[facility]ORY Comment: Nonsmokers: 0.5-1.5% COHB Smokers: Variable, but usually less than 10% Toxic: 20-30% COHB Lethal: Greater than 60% COHB METHB Art 0.7 <=1.5 % [facility] LABORATORY Na Whole Blood 140 135 - 145 mmol/L [facility] K Whole Blood 3.3 (L) 3.5 - 5.0 mmol/L [facility] Whole Blood 107 98 - 107 mmol/L [facility] Gluc Whole Bld 304 (H) 65 - 199 mg/dL [facility] Comment: Diabetes: >=200 mg/dL plus symp toms. Lactate WB 8.2 (Critical) 0.5 - 2.2 mmol/L [facility] Comment: Noted by band instrument maker. FIO2 Art 40 % [facility] LABORATORY PF Ratio Art 235 [facility]ORY Specimen Anatomical Collection Method Collection Time Receive d Time (Source) Location / / Volume Laterality Blood specimen 07/07/2017 10:04 7 (specimen) PM EST 10:04 PM EST Daphne Shahid MD CHEMISTRY ORDERABLES Performing Organization Address City/State/[place] [address] (ABNORMAL) Hemoglobin (07/07/2017 10:00 PM EST) athologist Signature Hemoglobin 12.8 (L) 13.7 - [facility] 16.5 gm/dL [facility] LABORATORY Specimen Anatomical Collection Method Collection Time Receive d Time (Source) Location / / Volume Laterality Blood specimen 07/07/2017 10:00 7 (specimen) PM EST 10:13 PM EST Resulting Agency Comment Spec In Lab Yuan Webber MD HEMATOLOGY ORDERABLES Performing Organization Address City/State/[place] [address] (ABNORMAL) Potassium (07/07/2017 10:00 PM EST) athologist Signature Potassium 3.4 (L) 3.5 - 5.0 [facility]/L [facility] LABORATORY Comment: Please note: ??Patients with WBC [...] [facility]/ZIP Code Phon e Number [address] (ABNORMAL) POCT Glucose (07/07/2017 8:49 PM EST) athologist Signature POC Glucose 241 (H) 65 - 199 [facility] mg/dL [facility] LABORATORY Comment: Supplemental ranges: <140 mg/dL before meals <180 mg/dL all other times of the day Specimen Anatomical Collection Method Collection Time Receive d Time (Source) Location / / Volume Laterality Blood specimen 07/07/2017 8:49 PM 017 8:49 (specimen) EST PM EST Daphne Shahid MD POINT OF CARE TEST ORDERABLE S Performing Organization Address City/[facility]/[place] [address] Prepare Albumin 5% in [...] PA BLOOD BANK ORDERABLES Performing Organization Address [facility]/ZIP Code Phon e Number [address] EKG 12 Lead (07/07/2017 7:17 PM EST) Component Value Ref Range Test Analysis Performed Pathologis t Method Time At Signature Ventricular rate 75 BPM MUSE SYSTEM Atrial Rate 75 BPM MUSE SYSTEM P-R Interval 168 ms MUSE SYSTEM QRS Duration 104 ms MUSE SYSTEM Q-T Interval 462 ms MUSE SYSTEM QTC Calculated 515 ms MUSE SYSTEM (Bezet) Calculated P [place] 52 degrees MUSE SYSTEM Calculated R [place] -40 degrees MUSE SYSTEM Calculated T [place] 39 degrees MUSE SYSTEM INTERPRETATION Normal sinus [...] Webber MD ECG ORDERABLES Performing Organization Address City/[facility] [...] athologist Signature pH Art 7.21 7.35 - [facility] (Critical) 7.45 [facility] LABORATORY Comment: Noted by band instrument maker. pCO2 Art 50 (H) 35 - 45 mmHg [facility]ORY pO2 Art 238 (H) 85 - 104 mmHg [facility] HCO3 Art 19.8 (L) 20.0 - 26.0 mmol/L [facility] LABOR[facility] BE Art -8.1 (L) -3.0 - 3.0 mmol/L [facility] LABORATORY Hgb Blood Gas 12.8 (L) 13.7 - 16.5 gm/dL [facility] LABORATORY O2HB Art 97.5 (H) 94.0 - 97.0 % [facility] COHB Art 0.5 % [facility] [...] [facility] LAB[facility] Comment: Noted by band instrument maker. Please note: Patients with WBC >100,000 may have falsely elevated Potassium levels. Contact the Clinical Chemistry L aboratory if there are any questions. ICa Whole Blood 1.07 (L) 1.15 - 1.33 mmol/L [facility] LABOR[facility]ORY Comment: Note: ??Total bilirubin higher than 20 m g/dL may lead to falsely low ionized calcium. CL Whole Blood 107 98 - 107 mmol/L [facility] Gluc Whole Bld 270 (H) 65 - 199 mg/dL [facility] Comment: Diabetes: >=200 mg/dL plus symp toms. Lactate WB 4.9 (Critical) 0.5 - 2.2 mmol/L [facility] Comment: Noted by band instrument maker. FIO2 Art 100 % [facility]OR[facility] PF Ratio Art 238 [facility] Specimen Anatomical Collection Method Collection Time Receive d Time (Source) Location / / Volume Laterality Blood specimen 07/07/2017 6:57 PM 017 6:57 (specimen) EST PM EST Daphne Shahid MD CHEMISTRY ORDERABLES Performing Organization Address City/State/[place] [address] (ABNORMAL) BLOOD GAS 2 ARTERIAL (07/07/2017 5:31 PM EST) athologist Signature pH Art 7.29 7.35 - [facility] (Critical) 7.45 [facility] LABORATORY Comment: Noted by band instrument maker. pCO2 Art 48 (H) 35 - 45 mmHg [facility] pO2 Art 137 (H) 85 - 104 mmHg [facility] HCO3 Art 22.4 20.0 - 26.0 mmol/L [facility] BE Art -4.3 (L) -3.0 - 3.0 mmol/L [facility] LABORATORY Hgb Blood Gas 10.0 (L) 13.7 - 16.5 gm/dL [facility] O2HB Art 97.3 (H) 94.0 - 97.0 % [facility] COHB Art 0.3 % [facility] Comment: Nonsmokers: 0.5-1.5% COHB Smokers: Variable, but usually less than 10% Toxic: 20-30% COHB Lethal: Greater than 60% COHB METHB Art 0.3 <=1.5 % [facility] Na Whole Blood 132 (L) 135 - 145 mmol/L [facility] K Whole Blood 4.0 3.5 - 5.0 mmol/L [facility] [...] Whole Blood 105 98 - 107 mmol/L [facility] Gluc Whole Bld 293 (H) [...] [facility]/[place] [address] Fibrinogen (07/07/2017 5:30 PM EST) athologist Signature Fibrinogen 224 180 - 510 [facility] mg/dL [facility] LABORATORY Comment: Called by: JEET, Read back [...] [facility]/ZIP Code Phon e Number [address] APTT (07/07/2017 5:30 PM EST) athologist Signature PTT 30 25 - 35 sec [facility]OR[facility]ORY Comment: The recommended therapeutic range for fu ll dose, unfractionated heparin at [facility] is 80 ? 114 seconds. The use [...] Organization Address City/[facility]/ZIP [facility] [place] [place] [address] (ABNORMAL) Prothrombin Time (07/07/2017 5:30 PM EST) athologist Signature PT 19.0 (H) 11.8 - 14.0 [facility] [...] Organization Address City/State/[place] [address] (ABNORMAL) Hemogram (07/07/2017 5:30 PM EST) athologist Signature WBC 19.6 (H) 4.0 - 9.5 [facility] x10(3)/[facility] LABORATORY RBC 3.08 (L) 4.58 - [facility] 5.54 [facility] x10(6)/[facility] LABORATORY Hemoglobin 9.2 (L) 13.7 - [facility] 16.5 gm/dL [facility] LABORATORY Hematocrit 28.0 (L) 40.5 - [facility] 48.5 % [facility] LABORATORY Comment: This result has been called to MONICA WEINSTEIN SON by DONALD GROSSMAN on 07 07 2017 at 1759, and has been read back. MCV 90.9 82.9 - 93.1 fL [facility] LABORATORY MCH 29.9 27.5 - 32.1 pg [facility] LABORATORY MCHC 32.9 32.0 - 35.7 gm/dL [facility] LABORATORY Platelets 155 145 - 357 x10(3)/[facility] LABORATORY RDWSD 46.5 (H) 36.0 - 45.0 fL [facility] LABORATORY RDWCV 14.1 (H) 11.4 - 13.8 % [facility] LABORATORY MPV 9.5 7.6 - 12.9 fL [facility] LABORATORY nRBC % Auto 0.0 % [facility] LABORATORY nRBC Abs Auto 0.000 0.000 - 0.000 x10(3)/[facility] LABORATORY Specimen Anatomical Collection Method Collection Time Receive d Time (Source) Location / / Volume Laterality Blood specimen 07/07/2017 5:30 PM 017 5:34 (specimen) EST PM EST Resulting Agency Comment Spec In Lab Yifan Perez MD HEMATOLOGY ORDERABLES Performing Organization Address [facility] Phon e Number [address] Prepare Platelets, Apheresis (07/07/2017 5:00 PM EST) P athologist Signature Dispensed? Yes [facility] LABORATORY Specimen Anatomical Collection Method Collection Time Receive d Time (Source) Location / / Volume Laterality Blood specimen 07/07/2017 5:00 PM 017 4:58 (specimen) EST PM EST Daphne Shahid MD BLOOD BANK ORDERABLES Performing Organization Address City/[facility] Phon e Number [address] Platelet count (07/07/2017 4:55 PM EST) P athologist Signature Platelets 177 145 - 357 [facility] x10(3)/[facility] LABORATORY Plat Immature 1.5 0.0 - 7.4 [facility] LABORATORY Comment: Limitation of the Immature Platelet Frac tion (IPF)-May be less reliable when the platelet count is less than [id number]/u L due to statistical imprecision. The IPF [...] in a decreased state of production. References: [employer] The Clinical Value of the Immature Platelet Fraction (IPF) in Cell Recovery Document Number [id number] 12/2010 [employer] The Role of the Imm ature [...] [facility]/[place] [address] (ABNORMAL) Hemoglobin and Hematocrit, blood (07/07/2017 4:55 PM EST) P athologist Signature Hemoglobin 9.1 (L) 13.7 - 16.5 [facility] gm/dL [facility] LABORATORY Comment: This result has been called [...] [facility]/ZIP Code Phon e Number [facility] [place] [address] (ABNORMAL) BLOOD GAS 2 ARTERIAL (07/07/2017 4:38 PM EST) Analysis Performed At Patho logist Time Signature pH Art 7.37 7.35 - [facility] 7.45 [facility]ORY pCO2 Art 44 35 - 45 [facility] mmHg [facility]ORY pO2 Art 322 (H) 85 - 104 [facility] mmHg [facility]ORY HCO3 Art 24.9 20.0 - [facility] 26.0 [facility] mmol/L [facility] LABORATORY BE Art -0.4 -3.0 - 3.0 [facility] mmol/L [facility]ORY Hgb Blood Gas 10.1 (L) 13.7 - [facility] 16.5 gm/dL [facility] O2HB Art 98.7 (H) 94.0 - [facility] 97.0 % [facility] LAB[facility]ATORY COHB Art 0.1 % [facility] LABORATORY Comment: Nonsmokers: 0.5-1.5% COHB Smokers: Variable, but usually less than 10% Toxic: 20-30% COHB Lethal: Greater than 60% COHB METHB Art 0.3 <=1.5 % [facility]ORAT[facility] Na Whole Blood 130 (L) 135 - 145 mmol/L [facility] LABORAT[facility] K Whole Blood 5.7 (H) 3.5 - 5.0 mmol/L [facility] Comment: Please note: Patients with WBC >100,000 may have falsely elevated Potassium levels. Contact the Clinical Chemistry L aboratory if there are any questions. ICa Whole Blood 0.89 (Critical) 1.15 - 1.33 mmol/L [facility] LABORATORY Comment: Noted by band instrument maker. Note: ??Total bilirubin higher than 20 m g/dL may lead to falsely low ionized calcium. CL Whole Blood 101 98 - 107 mmol/L [facility] Gluc Whole Bld 295 (H) 65 - 199 mg/dL [facility] LABOR[facility] Comment: Diabetes: >=200 mg/dL plus symp toms. Lactate WB 1.7 0.5 - 2.2 mmol/L [facility] LABORATORY Specimen Anatomical Collection Method Collection Time Receive d Time (Source) Location / / Volume Laterality Blood specimen 07/07/2017 4:38 PM 017 4:38 (specimen) EST PM EST Daphne Shahid MD CHEMISTRY ORDERABLES Performing Organization Address City/State/[place] [address] (ABNORMAL) BLOOD GAS 2 VENOUS (07/07/2017 4:06 PM EST) Analysis Performed At Patho [facility] Time Signature pH Cody 7.31 (L) 7.32 - [facility] 7.42 [facility] LABORATORY pCO2 Cody 47 41 - 51 [facility] LABORATORY pO2 Cody 53 (H) 25 - 40 [facility] LABORATORY HCO3 Cody 22.7 mmol/L [facility] LABORAT[facility] BE Cody -3.7 mmol/L [facility] Hgb Blood Gas 10.2 (L) 13.7 - [facility] 16.5 gm/dL [facility] O2HB [place] 81.0 % [place] [...] Blood 5.3 (H) 3.5 - 5.0 mmol/L [facility] Comment: Please note: Patients with WBC >100,000 may have falsely elevated Potassium levels. Contact the Clinical Chemistry L aboratory if there are any questions. ICa Whole Blood 0.90 (Critical) 1.15 - 1.33 mmol/L [facility] Comment: Noted by band instrument maker. Note: ??Total bilirubin higher than 20 m g/dL may lead to falsely low ionized calcium. CL Whole Blood 100 98 - 107 mmol/L [facility] Gluc Whole Bld 231 (H) 65 - 199 mg/dL [facility] Comment: Diabetes: >=200 mg/dL plus symp toms Lactate WB 1.1 0.5 - 2.2 mmol/L [facility] LABORATORY BGas Source Venous [facility] LABORATORY Specimen Anatomical Collection Method Collection Time Receive d Time (Source) Location / / Volume Laterality Blood specimen 07/07/2017 4:06 PM 017 4:06 (specimen) EST PM EST Daphne Shahid MD CHEMISTRY ORDERABLES Performing Organization Address City/State/[place] [address] (ABNORMAL) BLOOD GAS 2 ARTERIAL (07/07/2017 4:05 PM EST) Analysis Performed At Patho logist Time Signature pH Art 7.36 7.35 - [facility] 7.45 [facility]ORY pCO2 Art 40 35 - 45 [facility] LABORATORY pO2 Art 282 (H) 85 - 104 [facility] LABORATORY HCO3 Art 22.1 20.0 - [facility] 26.0 [facility] mmol/[facility] LABORATORY BE Art -3.4 (L) -3.0 - 3.0 [facility] mmol/L [facility] Hgb Blood Gas 10.2 (L) 13.7 - [facility] 16.5 gm/dL [facility]ORY O2HB Art 98.4 (H) 94.0 - [facility] 97.0 % [facility] COHB Art 0.3 % [facility] Comment: Nonsmokers: 0.5-1.5% COHB Smokers: Variable, but usually less than 10% Toxic: 20-30% COHB Lethal: Greater than 60% COHB METHB Art 0.3 <=1.5 % [facility] Na Whole Blood 131 (L) 135 - 145 mmol/L [facility] K Whole Blood 5.4 (H) 3.5 - 5.0 mmol/L [facility] Comment: Please note: Patients with WBC >100,000 may have falsely elevated Potassium levels. Contact the Clinical Chemistry L aboratory if there are any questions. ICa Whole Blood 0.86 (Critical) 1.15 - 1.33 mmol/L [facility] Comment: Noted by band instrument maker. Note: ??Total bilirubin higher than 20 m g/dL may lead to falsely low ionized calcium. CL Whole Blood 101 98 - 107 mmol/L [facility] Gluc Whole Bld 260 (H) 65 - 199 mg/dL [facility] Comment: Diabetes: >=200 mg/dL plus symp toms. Lactate WB 1.4 0.5 - 2.2 mmol/L [facility]OR[facility]ORY Specimen Anatomical Collection Method Collection Time Receive d Time (Source) Location / / Volume Laterality Blood specimen 07/07/2017 4:05 PM 017 4:05 (specimen) EST PM EST Daphne Shahid MD CHEMISTRY ORDERABLES Performing Organization Address City/State/[place] [address] (ABNORMAL) BLOOD GAS 2 ARTERIAL (07/07/2017 2:29 PM EST) Analysis Performed At Patho logist Time Signature pH Art 7.43 7.35 - [facility] 7.45 [facility]ORY pCO2 Art 36 35 - 45 [facility] LABORATORY pO2 Art 221 (H) 85 - 104 [facility] LABORATORY HCO3 Art 23.2 20.0 - [facility] 26.0 [facility] mmol/L [facility] LAB[facility]AT[facility] BE Art -1.2 -3.0 - 3.0 [facility] mmol/L [facility]ORY Hgb Blood Gas 13.9 13.7 - [facility] 16.5 gm/dL [facility]ORY O2HB Art 97.8 (H) 94.0 - [facility] 97.0 % [facility] COHB Art 1.1 % [place] [...] Lactate WB 1.5 0.5 - 2.2 mmol/L [facility] LABORATORY Specimen Anatomical Collection Method Collection Time Receive d Time (Source) Location / / Volume Laterality Blood specimen 07/07/2017 2:29 PM 017 2:29 (specimen) EST PM EST Daphne Shahid MD CHEMISTRY ORDERABLES Performing Organization Address City/[facility]/[place] [address] Prepare Coag Factors (Non-Hemophilia) (07/07/2017 1:25 PM EST) P athologist Signature Dispensed? Yes [facility] LABOR[facility] Specimen Anatomical Collection Method Collection Time Receive d Time (Source) Location / / Volume Laterality Blood specimen 07/07/2017 1:25 PM 017 1:21 (specimen) EST PM EST Daphne Shahid MD BLOOD BANK ORDERABLES Performing Organization Address City/[facility]/[place] [address] Prepare RBC (07/07/2017 1:10 PM EST) P athologist Signature Dispensed? Yes [facility] LABOR[facility]ORY Specimen Anatomical Collection Method Collection Time Receive d Time (Source) Location / / Volume Laterality Blood specimen 07/07/2017 1:10 PM 017 1:05 (specimen) EST PM EST Daphne Shahid MD BLOOD BANK ORDERABLES Performing Organization Address City/State/[place] [address] POCT Glucose (07/07/2017 11:56 AM EST) P athologist Signature POC Glucose 188 65 - 199 [facility] mg/dL [facility] LAB[facility]ORY Comment: Supplemental ranges: <140 mg/dL before meals <180 mg/dL all other times of the day Specimen Anatomical Collection Method Collection Time Receive d Time (Source) Location / / Volume Laterality Blood specimen 07/07/2017 11:56 7 (specimen) AM EST 11:56 AM EST Daphne Shahid MD POINT OF CARE TEST ORDERABLE S Performing Organization Address City/State/ZIP Code Phon e Number [address] POCT Glucose (07/07/2017 11:05 AM EST) athologist Signature POC Glucose 168 65 - 199 [facility] LAB[facility]ORY Comment: Supplemental ranges: <140 mg/dL before meals <180 mg/dL all other times of the day Specimen Anatomical Collection Method Collection Time Receive d Time (Source) Location / / Volume Laterality Blood specimen 07/07/2017 11:05 7 (specimen) AM EST 11:05 AM EST aDphne Shahid MD POINT OF CARE TEST ORDERABLE S Performing Organization Address City/State/ZIP Code Phon e Number [address] POCT Glucose (07/07/2017 10:02 AM EST) athologist Signature POC Glucose 191 65 - 199 [facility] mg/dL [facility] LAB[facility]ORY Comment: Supplemental ranges: <140 mg/dL before meals <180 mg/dL all other times of the day Specimen Anatomical Collection Method Collection Time Receive d Time (Source) Location / / Volume Laterality Blood specimen 07/07/2017 10:02 7 (specimen) AM EST 10:02 AM EST Daphne Shahid MD POINT OF CARE TEST ORDERABLE S Performing Organization Address City/State/[place] [address] POCT Glucose (07/07/2017 7:53 AM EST) athologist Signature POC Glucose 178 65 - 199 [facility] mg/dL [facility] LAB[facility]ORY Comment: Supplemental ranges: <140 mg/dL before meals <180 mg/dL all other times of the day Specimen Anatomical Collection Method Collection Time Receive d Time (Source) Location / / Volume Laterality Blood specimen 07/07/2017 7:53 AM 017 7:53 (specimen) EST AM EST Daphne Shahid MD POINT OF CARE TEST ORDERABLE S Performing Organization Address City/State/ZIP Code Phon e Number [address] POCT Glucose (07/07/2017 7:03 AM EST) athologist Signature POC Glucose 188 65 - 199 [facility] LAB[facility]ORY Comment: Supplemental ranges: <140 mg/dL before meals <180 mg/dL all other times of the day Specimen Anatomical Collection Method Collection Time Receive d Time (Source) Location / / Volume Laterality Blood specimen 07/07/2017 7:03 AM 017 7:03 (specimen) EST AM EST Daphne Shahid MD POINT OF CARE TEST ORDERABLE S Performing Organization Address City/State/[place] [address] (ABNORMAL) POCT Glucose (07/07/2017 6:17 AM EST) athologist Signature POC Glucose 207 (H) 65 - 199 [facility] mg/dL [facility] LAB[facility]ORY Comment: Supplemental ranges: <140 mg/dL before meals <180 mg/dL all other times of the day Specimen Anatomical Collection Method Collection Time Receive d Time (Source) Location / / Volume Laterality Blood specimen 07/07/2017 6:17 AM 017 6:17 (specimen) EST AM EST Daphne Shahid MD POINT OF CARE TEST ORDERABLE S Performing Organization Address City/State/[place] [address] Differential, Automated (07/07/2017 5:15 AM EST) P athologist Signature Neutrophils % 69.7 % [facility] LABORATORY Neutr Abs (ANC) 5.32 1.70 - [facility] 6.10 [facility] x10(3)/[facility] LABORATORY Lymphocytes % 16.3 % [facility] LABORATORY Lymphocytes Abs 1.2 0.9 - 3.2 [facility] x10(3)/[facility] LABORATORY Monocytes % 10.5 % [facility] LABORATORY Monocyte Abs 0.8 0.3 - 0.9 [facility] x10(3)/[facility] LABORATORY Eosinophils % 2.5 % [facility] LABORATORY Eosinophils Abs 0.2 0.0 - 0.4 [facility] x10(3)/[facility] LABORATORY Basophils % 0.7 % [facility] LABORATORY Basophils Abs 0.0 0.0 - 0.1 [facility] x10(3)/[facility] LABORATORY Immature Gran % 0.30 % [facility] [...] Abs 0.02 0.00 - 0.04 x10(3)/[facility] LABORATORY Specimen Anatomical Collection Method Collection Time Receive d Time (Source) Location / / Volume Laterality Blood specimen 07/07/2017 5:15 AM 017 5:34 (specimen) EST AM EST Resulting Agency Comment Spec In Lab Daphne Shahid MD HEMATOLOGY ORDERABLES Performing Organization Address City/State/[place] [address] (ABNORMAL) Hemogram (07/07/2017 5:15 AM EST) Analysis Performed At Patho logist Time Signature WBC 7.6 4.0 - 9.5 [facility] x10(3)/[facility] LABORATORY RBC 4.82 4.58 - [facility] 5.54 [facility] x10(6)/[facility] LABORATORY Hemoglobin 14.4 13.7 - [facility] 16.[facility] gm/dL [facility] LABORATORY Hematocrit 42.1 40.5 - [facility] 48.5 % [facility] LABORATORY MCV 87.3 82.9 - [facility] 93.1 [facility] LABORATORY MCH 29.9 27.5 - [facility] 32.1 pg [facility] LABORATORY MCHC 34.2 32.0 - [facility] 35.7 gm/dL [facility] LABORATORY Platelets 188 145 - 357 [facility] x10(3)/[facility] LABORATORY RDWSD 45.1 (H) 36.0 - [facility] 45.0 [facility] LABORATORY RDWCV 14.3 (H) 11.4 - [facility] 13.8 % [facility] LABORATORY MPV 9.4 7.6 - 12.9 [facility] LABORATORY nRBC % Auto 0.0 % [facility] LABORATORY nRBC Abs Auto 0.000 0.000 - [facility] 0.000 [facility] x10(3)/[facility] LABORATORY Specimen Anatomical Collection Method Collection Time Receive d Time (Source) Location / / Volume Laterality Blood specimen 07/07/2017 5:15 AM 017 5:34 (specimen) EST AM EST Resulting Agency Comment Spec In Lab Daphne Shahid MD HEMATOLOGY ORDERABLES Performing Organization Address City/State/[place] [address] (ABNORMAL) APTT (07/07/2017 5:15 AM EST) P athologist Signature PTT 69 (H) 25 - 35 sec [facility] LABORATORY Comment: The recommended therapeutic range for fu ll dose, unfractionated heparin at [facility] is 80 ? 114 seconds. The use [...] [facility]/ZIP Code Phon e Number [address] Magnesium (07/07/2017 5:15 AM EST) athologist Signature Magnesium 0.94 0.69 - 1.07 [facility] mmol/L [facility] LABORATORY Specimen Anatomical Collection Method Collection Time Receive d Time (Source) Location / / Volume Laterality Blood specimen 07/07/2017 5:15 AM 017 5:34 (specimen) EST AM EST Resulting Agency Comment Spec In Lab Daphne Shahid MD CHEMISTRY ORDERABLES Performing Organization Address City/[facility] Phon e Number [address] (ABNORMAL) Basic Metabolic Panel (non-fasting) (07/07/2017 5:15 AM EST) athologist Signature Glucose Lvl 203 (H) 65 - 199 [facility] mg/dL [facility] LABORATORY Comment: Diabetes: >=200 mg/dL plus symp toms BUN 15 10 - 20 mg/dL [facility] LABORATORY Creatinine 1.09 0.80 - 1.50 mg/dL [facility] LABORATORY Sodium 142 135 - 145 mmol/L [facility] LABORATORY Potassium 4.4 3.5 - 5.0 mmol/L [facility] [...] LABORATORY Estimated GFR >60 >=60 [facility] LABORATORY Comment: The reported eGFR should be multiplied b y 1.2 for patients. The MDRD is not an appropriate measure o f renal function for patients with body mass extremes or in patients with acute kidney failure. http://[employer]/DHnkdep http://[employer]asm[employer]/DHMCnkf Specimen Anatomical Collection Method Collection Time Receive d Time (Source) Location / / Volume Laterality Blood specimen 07/07/2017 5:15 AM 017 5:34 (specimen) EST AM EST Resulting Agency Comment Spec In Lab Daphne Shahid MD CHEMISTRY ORDERABLES Performing Organization Address City/State/[place] [address] (ABNORMAL) Cardiac Enzymes (LEB/CGP) (07/07/2017 5:15 AM EST) P athologist Signature Troponin-T 2.07 (H) 0.00 - [facility] 0.[facility] ng/mL [facility] LABORATORY Comment: The 99th percentile for Troponin T is le ss than 0.01 ng/mL, any detectable cTnT concentration using this assay should be considered elevated. According to the third universal definit ion of myocardial infarction the following criteria with a clinical prese ntation consistent with acute myocardial ischemia meets the diagnosis for a myocardial infarction ([place]). Detection of a rise and/or fall of [...] additional sample may be indicated. Reference: Third [place] Definition of Myocardial Infarction. Journal of the [place] [employer] 2012;60:1581-98 CK, Total 88 0 - 200 unit/L [facility] LABORATORY Specimen Anatomical Collection Method Collection Time Receive d Time (Source) Location / / Volume Laterality Blood specimen 07/07/2017 5:15 AM 017 5:34 (specimen) EST AM EST Resulting Agency Comment Spec In Lab Daphne Shahid MD CHEMISTRY ORDERABLES Performing Organization Address City/State/ZIP Code Phon e Number [address] POCT Glucose (07/07/2017 5:01 AM EST) athologist Signature POC Glucose 182 65 - 199 [facility]/dL [facility] LABORATORY Comment: Supplemental ranges: <140 mg/dL before meals <180 mg/dL all other times of the day Specimen Anatomical Collection Method Collection Time Receive d Time (Source) Location / / Volume Laterality Blood specimen 07/07/2017 5:01 AM 017 5:01 (specimen) EST AM EST Daphne Shahid MD POINT OF CARE TEST ORDERABLE S Performing Organization Address City/[facility]/ZIP Code Phon e Number [address] POCT Glucose (07/07/2017 4:08 AM EST) athologist Signature POC Glucose 199 65 - 199 [facility] mg/dL [facility] LABORATORY Comment: Supplemental ranges: <140 mg/dL before meals <180 mg/dL all other times of the day Specimen Anatomical Collection Method Collection Time Receive d Time (Source) Location / / Volume Laterality Blood specimen 07/07/2017 4:08 AM 017 4:08 (specimen) EST AM EST Daphne Shahid MD POINT OF CARE TEST ORDERABLE S Performing Organization Address City/State/ZIP Code Phon e Number [address] POCT Glucose (07/07/2017 3:03 AM EST) athologist Signature POC Glucose 188 65 - 199 [facility] mg/dL [facility] LABORATORY Comment: Supplemental ranges: <140 mg/dL before meals <180 mg/dL all other times of the day Specimen Anatomical Collection Method Collection Time Receive d Time (Source) Location / / Volume Laterality Blood specimen 07/07/2017 3:03 AM 017 3:03 (specimen) EST AM EST Daphne Shahdi MD POINT OF CARE TEST ORDERABLE S Performing Organization Address City/[facility]/[place] [address] (ABNORMAL) POCT Glucose (07/07/2017 2:08 AM EST) P athologist Signature POC Glucose 200 (H) 65 - 199 [facility] mg/dL [facility] LABORATORY Comment: Supplemental ranges: <140 mg/dL before meals <180 mg/dL all other times of the day Specimen Anatomical Collection Method Collection Time Receive d Time (Source) Location / / Volume Laterality Blood specimen 07/07/2017 2:08 AM 017 2:08 (specimen) EST AM EST Daphne Shahid MD POINT OF CARE TEST ORDERABLE S Performing Organization Address City/[facility]/[place] [address] (ABNORMAL) POCT Glucose (07/07/2017 1:31 AM EST) athologist Signature POC Glucose 209 (H) 65 - 199 [facility] mg/dL [facility] LABORATORY Comment: Supplemental ranges: <140 mg/dL before meals <180 mg/dL all other times of the day Specimen Anatomical Collection Method Collection Time Receive d Time (Source) Location / / Volume Laterality Blood specimen 07/07/2017 1:31 AM 017 1:31 (specimen) EST AM EST Daphne Shahid MD POINT OF CARE TEST ORDERABLE S Performing Organization Address City/State/[place] [address] XR Chest PA or [...] Signature POC Glucose 161 65 - 199 [facility] mg/dL [facility] LABORATORY Comment: Supplemental ranges: <140 mg/dL before meals <180 mg/dL all other times of the day Specimen Anatomical Collection Method Collection Time Receive d Time (Source) Location / / Volume Laterality Blood specimen 07/07/2017 12:07 7 (specimen) AM EST 12:07 AM EST Daphne Shahid MD POINT OF CARE TEST ORDERABLE S Performing Organization Address City/State/[place] [address] (ABNORMAL) APTT (07/07/2017 12:00 AM EST) P athologist Signature PTT 103 (H) 25 - 35 sec [facility] LABORATORY Comment: The recommended therapeutic range for fu ll dose, unfractionated heparin at [facility] is 80 ? 114 seconds. The use [...] [facility]/ZIP Code Phon e Number [address] POCT Glucose (07/06/2017 9:55 PM EST) athologist Signature POC Glucose 109 65 - 199 [facility] mg/dL [facility] LABORATORY Comment: Supplemental ranges: <140 mg/dL before meals <180 mg/dL all other times of the day Specimen Anatomical Collection Method Collection Time Receive d Time (Source) Location / / Volume Laterality Blood specimen 07/06/2017 9:55 PM 017 9:55 (specimen) EST PM EST Daphne Shahid MD POINT OF CARE TEST ORDERABLE S Performing Organization Address City/[facility]/ZIP Code Phon e Number [address] POCT Glucose (07/06/2017 9:04 PM EST) athologist Signature POC Glucose 120 65 - 199 [facility] LABORATORY Comment: Supplemental ranges: <140 mg/dL before meals <180 mg/dL all other times of the day Specimen Anatomical Collection Method Collection Time Receive d Time (Source) Location / / Volume Laterality Blood specimen 07/06/2017 9:04 PM 017 9:04 (specimen) EST PM EST Daphne Shahid MD POINT OF CARE TEST ORDERABLE S Performing Organization Address City/[facility]/ZIP Code Phon e Number [address] POCT Glucose (07/06/2017 7:45 PM EST) athologist Signature POC Glucose 158 65 - 199 [facility] mg/dL [facility] LABORATORY Comment: Supplemental ranges: <140 mg/dL before meals <180 mg/dL all other times of the day Specimen Anatomical Collection Method Collection Time Receive d Time (Source) Location / / Volume Laterality Blood specimen 07/06/2017 7:45 PM 017 7:45 (specimen) EST PM EST Daphne Shahid MD POINT OF CARE TEST ORDERABLE S Performing Organization Address [facility]/ZIP [facility] [place] [place] [address] Potassium (07/06/2017 7:40 PM EST) athologist Signature Potassium 3.9 3.5 - 5.0 [facility] mmol/L [facility] LABORATORY Comment: Please note: ??Patients with WBC [...] [facility] [place] [address] (ABNORMAL) Cardiac Enzymes (LEB/CGP) (07/06/2017 7:40 PM EST) athologist Signature Troponin-T 2.27 (H) 0.00 - [facility] 0.00 ng/mL [facility] LABORATORY Comment: The 99th percentile for Troponin T is le ss than 0.01 ng/mL, any detectable cTnT concentration using this assay should be considered elevated. According to the third universal definit ion of myocardial infarction the following criteria with a clinical prese ntation consistent with acute myocardial ischemia meets the diagnosis for a myocardial infarction ([place]). Detection of a rise and/or fall of [...] additional sample may be indicated. Reference: Third [place] Definition of Myocardial Infarction. Journal of the [place] College [employer] 2012;60:1581-98 CK, Total 93 [...] [facility]/[place] [address] (ABNORMAL) POCT Glucose (07/06/2017 7:13 PM EST) athologist Signature POC Glucose 200 (H) 65 - 199 [facility] mg/dL [facility] LABORATORY Comment: Supplemental ranges: <140 mg/dL before meals <180 mg/dL all other times of the day Specimen Anatomical Collection Method Collection Time Receive d Time (Source) Location / / Volume Laterality Blood specimen 07/06/2017 7:13 PM 017 7:13 (specimen) EST PM EST Daphne Shahid MD POINT OF CARE TEST ORDERABLE S Performing Organization Address City/[facility]/[place] [address] (ABNORMAL) APTT (07/06/2017 6:15 PM EST) P athologist Signature PTT 94 (H) 25 - 35 sec [facility] LABORATORY Comment: The recommended therapeutic range for fu ll dose, unfractionated heparin at [facility] is 80 ? 114 seconds. The use [...] Address City/State/[place] [address] (ABNORMAL) POCT Glucose (07/06/2017 6:03 PM EST) athologist Signature POC Glucose 236 (H) 65 - 199 [facility] mg/dL [facility] LABORATORY Comment: Supplemental ranges: <140 mg/dL before meals <180 mg/dL all other times of the day Specimen Anatomical Collection Method Collection Time Receive d Time (Source) Location / / Volume Laterality Blood specimen 07/06/2017 6:03 PM 017 6:03 (specimen) EST PM EST Daphne Shahid MD POINT OF CARE TEST ORDERABLE S Performing Organization Address City/State/[place] [address] (ABNORMAL) POCT Glucose (07/06/2017 5:01 PM EST) P athologist Signature POC Glucose 235 (H) 65 - 199 [place] mg/dL [facility] LABORATORY Comment: Supplemental ranges: <140 mg/dL before meals <180 mg/dL all other times of the day Specimen Anatomical Collection Method Collection Time Receive d Time (Source) Location / / Volume Laterality Blood specimen 07/06/2017 5:01 PM 017 5:01 (specimen) EST PM EST Daphne Shahid MD POINT OF CARE TEST ORDERABLE S Performing Organization Address City/State/[place] [address] (ABNORMAL) POCT Glucose (07/06/2017 4:06 PM EST) P athologist Signature POC Glucose 202 (H) 65 - 199 [place] mg/dL [facility] LABORATORY Comment: Supplemental ranges: <140 mg/dL before meals <180 mg/dL all other times of the day Specimen Anatomical Collection Method Collection Time Receive d Time (Source) Location / / Volume Laterality Blood specimen 07/06/2017 4:06 PM 017 4:06 (specimen) EST PM EST Daphne Shahid MD POINT OF CARE TEST ORDERABLE S Performing Organization Address City/State/[place] [address] POCT Glucose (07/06/2017 2:59 PM EST) athologist Signature POC Glucose 178 65 - 199 [facility] mg/dL [facility] LABORATORY Comment: Supplemental ranges: <140 mg/dL before meals <180 mg/dL all other times of the day Specimen Anatomical Collection Method Collection Time Receive d Time (Source) Location / / Volume Laterality Blood specimen 07/06/2017 2:59 PM 017 2:59 (specimen) EST PM EST Daphne Shahid MD POINT OF CARE TEST ORDERABLE S Performing Organization Address City/[facility]/[place] [address] (ABNORMAL) Cardiac Enzymes (LEB/CGP) (07/06/2017 2:10 PM EST) athologist Signature Troponin-T 2.34 (H) 0.00 - [place] 0.00 ng/mL [facility] LABORATORY Comment: The 99th percentile for Troponin T is le ss than 0.01 ng/mL, any detectable cTnT concentration using this assay should be considered elevated. According to the third universal definit ion of myocardial infarction the following criteria with a clinical prese ntation consistent with acute myocardial ischemia meets the diagnosis for a myocardial infarction ([place]). Detection of a rise and/or fall of [...] additional sample may be indicated. Reference: Third [place] Definition of Myocardial Infarction. Journal of the [place] College [employer]iology 2012;60:1581-98 CK, Total 101 0 - 200 unit/L [facility] LABORATORY Specimen Anatomical Collection Method Collection Time Receive d Time (Source) Location / / Volume Laterality Blood specimen 07/06/2017 2:10 PM 017 2:26 (specimen) EST PM EST Resulting Agency Comment Spec In Lab Daphne Shahid MD CHEMISTRY ORDERABLES Performing Organization Address City/[facility]/ZIP [facility] Phon e Number [address] POCT Glucose (07/06/2017 2:08 PM EST) athologist Signature POC Glucose 192 65 - 199 [facility] mg/dL [facility] LABORATORY Comment: Supplemental ranges: <140 mg/dL before meals <180 mg/dL all other times of the day Specimen Anatomical Collection Method Collection Time Receive d Time (Source) Location / / Volume Laterality Blood specimen 07/06/2017 2:08 PM 017 2:08 (specimen) EST PM EST Daphne Shahid MD POINT OF CARE TEST ORDERABLE S Performing Organization Address City/[facility]/[place] [address] POCT Glucose (07/06/2017 1:04 PM EST) athologist Signature POC Glucose 162 65 - 199 [facility] mg/dL [facility] LABORATORY Comment: Supplemental ranges: <140 mg/dL before meals <180 mg/dL all other times of the day Specimen Anatomical Collection Method Collection Time Receive d Time (Source) Location / / Volume Laterality Blood specimen 07/06/2017 1:04 PM 017 1:04 (specimen) EST PM EST Daphne Shahid MD POINT OF CARE TEST ORDERABLE S Performing Organization Address City/State/ZIP Code Phon e Number [address] POCT Glucose (07/06/2017 12:05 PM EST) P athologist Signature POC Glucose 196 65 - 199 [facility] mg/dL [facility] LABORATORY Comment: Supplemental ranges: <140 mg/dL before meals <180 mg/dL all other times of the day Specimen Anatomical Collection Method Collection Time Receive d Time (Source) Location / / Volume Laterality Blood specimen 07/06/2017 12:05 7 (specimen) PM EST 12:05 PM EST Daphne Shahid MD POINT OF CARE TEST ORDERABLE S Performing Organization Address [facility]/ZIP Code Phon e Number [address] EKG 12 Lead (07/06/2017 12:00 PM EST) Component Value Ref Range Test Analysis Performed Pathologis t Method Time At Signature Ventricular rate 91 BPM MUSE SYSTEM Atrial Rate 91 BPM MUSE SYSTEM P-R Interval 140 ms MUSE SYSTEM QRS Duration 94 ms MUSE SYSTEM Q-T Interval 394 ms MUSE SYSTEM QTC Calculated 484 ms MUSE SYSTEM (Bezet) Calculated P [place] 36 degrees MUSE SYSTEM Calculated R [place] -19 degrees MUSE SYSTEM Calculated T [place] 104 degrees MUSE SYSTEM INTERPRETATION Normal sinus rhythm MUSE SYSTEM 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) ST & T wave abnormality, consider lateral ischemia Abnormal ECG When compared with ECG of 05-JUL-2017 20:39, No significant change was found Confirmed by MD Luci, Taurus Braun ([id number]) on 07/06/2017 5:07:33 PM Specimen Anatomical Collection Method Collection Time Receive d Time (Source) Location / / Volume Laterality 07/06/2017 12:00 07/06/2017 5:07 PM EST PM EST Daphne Shahid MD ECG ORDERABLES Performing Organization Address City/[facility]/ZIP Code Phon e Number MUSE SYSTEM ABORH Recheck Status (07/06/2017 12:00 PM EST) Patholo gist Method Time Signature ABORH Type Completed [facility] LABORATORY Specimen Anatomical Collection Method Collection Time Receive d Time (Source) Location / / Volume Laterality Blood specimen 07/06/2017 12:00 7 (specimen) PM EST 12:24 PM EST Resulting Agency Comment Spec In Lab Daphne Shahid MD BLOOD BANK ORDERABLES Performing Organization Address City/[facility]/[place] [address] Antibody screen (07/06/2017 12:00 PM EST) Patholo gist Method Time Signature Ab Screen Negative [facility] LABORATORY Expires at 07/09/2017 [facility] [id number] on: [facility] LABORATORY Specimen Anatomical Collection Method Collection Time Receive d Time (Source) Location / / Volume Laterality Blood specimen 07/06/2017 12:00 7 (specimen) PM EST 12:24 PM EST Resulting Agency Comment Spec In Lab Daphne Shahid MD BLOOD BANK ORDERABLES Performing Organization Address City/[facility]/[place] [address] ABO/Rh Typing (07/06/2017 12:00 PM EST) P athologist Signature ABORh Type O Pos [facility] LABORATORY Specimen Anatomical Collection Method Collection Time Receive d Time (Source) Location / / Volume Laterality Blood specimen 07/06/2017 12:00 7 (specimen) PM EST 12:24 PM EST Resulting Agency Comment Spec In Lab Daphne Shahid MD BLOOD BANK ORDERABLES Performing Organization Address City/[facility] [place] [address] Prothrombin Time (07/06/2017 11:24 AM EST) P athologist Signature PT 13.3 11.8 - 14.0 [facility] LABORATORY INR 1.0 0.9 - 1.1 [...] [facility]/[place] [address] (ABNORMAL) APTT (07/06/2017 11:24 AM EST) P athologist Signature PTT 52 (H) 25 - 35 sec [facility] LABORATORY Comment: The recommended therapeutic range for fu ll dose, unfractionated heparin at [facility] is 80 ? 114 seconds. The use [...] [facility]/[place] [address] POCT Glucose (07/06/2017 11:02 AM EST) P athologist Signature POC Glucose 187 65 - 199 [facility] mg/dL [facility] LABORATORY Comment: Supplemental ranges: <140 mg/dL before meals <180 mg/dL all other times of the day Specimen Anatomical Collection Method Collection Time Receive d Time (Source) Location / / Volume Laterality Blood specimen 07/06/2017 11:02 7 (specimen) AM EST 11:02 AM EST Daphne Shahid MD POINT OF CARE TEST ORDERABLE S Performing Organization Address City/[facility]/[place] [address] POCT Glucose (07/06/2017 10:18 AM EST) athologist Signature POC Glucose 193 65 - 199 [facility] LABORATORY Comment: Supplemental ranges: <140 mg/dL before meals <180 mg/dL all other times of the day Specimen Anatomical Collection Method Collection Time Receive d Time (Source) Location / / Volume Laterality Blood specimen 07/06/2017 10:18 7 (specimen) AM EST 10:18 AM EST Daphne Shahid MD POINT OF CARE TEST ORDERABLE S Performing Organization Address City/State/[place] [address] POCT Glucose (07/06/2017 9:25 AM EST) athologist Signature POC Glucose 182 65 - 199 [facility] LABORATORY Comment: Supplemental ranges: <140 mg/dL before meals <180 mg/dL all other times of the day Specimen Anatomical Collection Method Collection Time Receive d Time (Source) Location / / Volume Laterality Blood specimen 07/06/2017 9:25 AM 017 9:25 (specimen) EST AM EST Daphne Shahid MD POINT OF CARE TEST ORDERABLE S Performing Organization Address City/[facility] [place] [address] (ABNORMAL) Cardiac Enzymes (LEB/CGP) (07/06/2017 8:10 AM EST) athologist Signature Troponin-T 2.26 (H) 0.00 - [facility] 0.00 ng/mL [facility] LABORATORY Comment: The 99th percentile for Troponin T is le ss than 0.01 ng/mL, any detectable cTnT concentration using this assay should be considered elevated. According to the third universal definit ion of myocardial infarction the following criteria with a clinical prese ntation consistent with acute myocardial ischemia meets the diagnosis for a myocardial infarction ([place]). Detection of a rise and/or fall of [...] additional sample may be indicated. Reference: Third [place] Definition of Myocardial Infarction. Journal of the [place] [employer] 2012;60:1581-98 CK, Total 124 [...] [facility]/[place] [address] Magnesium (07/06/2017 8:10 AM EST) P athologist Signature Magnesium 0.84 0.69 - 1.07 [facility] mmol/L [facility] LABORATORY Specimen Anatomical Collection Method Collection Time Receive d Time (Source) Location / / Volume Laterality Blood specimen 07/06/2017 8:10 AM 017 8:21 (specimen) EST AM EST Resulting Agency Comment Spec In Lab Daphne Shahid MD CHEMISTRY ORDERABLES Performing Organization Address City/[facility]/ZIP [facility] [place] [place] [address] (ABNORMAL) Basic Metabolic Panel (non-fasting) (07/06/2017 8:10 AM EST) athologist Signature Glucose Lvl 199 65 - 199 [facility] mg/dL [facility] LABORATORY Comment: Diabetes: >=200 mg/dL plus symp toms BUN 16 10 - 20 mg/dL [facility] LABORATORY Creatinine 1.04 0.80 - 1.50 mg/dL [facility] LABORATORY [...] or in patients with acute kidney failure. http://[employer]/DHnkdep http://[employer]/DHMCnkf Specimen Anatomical Collection Method Collection Time Receive d Time (Source) Location / / Volume Laterality Blood specimen 07/06/2017 8:10 AM 017 8:21 (specimen) EST AM EST Resulting Agency Comment Spec In Lab Daphne Shahid MD CHEMISTRY ORDERABLES Performing Organization Address City/State/[place] [address] POCT Glucose (07/06/2017 7:34 AM EST) P athologist Signature POC Glucose 198 65 - 199 [facility] mg/dL [facility] LABORATORY Comment: Supplemental ranges: <140 mg/dL before meals <180 mg/dL all other times of the day Specimen Anatomical Collection Method Collection Time Receive d Time (Source) Location / / Volume Laterality Blood specimen 07/06/2017 7:34 AM 017 7:34 (specimen) EST AM EST Daphne Shahid MD POINT OF CARE TEST ORDERABLE S Performing Organization Address City/State/ZIP [place] [address] [facility] [address] POCT Glucose (07/06/2017 7:03 AM EST) P athologist Signature POC Glucose 181 65 - 199 [facility] mg/dL [facility] LABORATORY Comment: Supplemental ranges: <140 mg/dL before meals <180 mg/dL all other times of the day Specimen Anatomical Collection Method Collection Time Receive d Time (Source) Location / / Volume Laterality Blood specimen 07/06/2017 7:03 AM 017 7:03 (specimen) EST AM EST Daphne Shahid MD POINT OF CARE TEST ORDERABLE S Performing Organization Address City/State/ZIP Code Phon e Number [address] XR Chest PA or [...] Signature POC Glucose 172 65 - 199 [facility]/dL [facility] LABORATORY Comment: Supplemental ranges: <140 mg/dL before meals <180 mg/dL all other times of the day Specimen Anatomical Collection Method Collection Time Receive d Time (Source) Location / / Volume Laterality Blood specimen 07/06/2017 6:21 AM 017 6:21 (specimen) EST AM EST Daphne Shahid MD POINT OF CARE TEST ORDERABLE S Performing Organization Address City/State/[place] [address] POCT Glucose (07/06/2017 5:08 AM EST) athologist Signature POC Glucose 154 65 - 199 [facility] mg/dL [facility] LABORATORY Comment: Supplemental ranges: <140 mg/dL before meals <180 mg/dL all other times of the day Specimen Anatomical Collection Method Collection Time Receive d Time (Source) Location / / Volume Laterality Blood specimen 07/06/2017 5:08 AM 017 5:08 (specimen) EST AM EST Daphne Shahid MD POINT OF CARE TEST ORDERABLE S Performing Organization Address City/State/[place] [address] POCT Glucose (07/06/2017 4:05 AM EST) athologist Signature POC Glucose 142 65 - 199 [facility] mg/dL [facility] LABORATORY Comment: Supplemental ranges: <140 mg/dL before meals <180 mg/dL all other times of the day Specimen Anatomical Collection Method Collection Time Receive d Time (Source) Location / / Volume Laterality Blood specimen 07/06/2017 4:05 AM 017 4:05 (specimen) EST AM EST Daphne Shahid MD POINT OF CARE TEST ORDERABLE S Performing Organization Address City/[facility]/ZIP Code Phon e Number [address] POCT Glucose (07/06/2017 3:00 AM EST) athologist Signature POC Glucose 116 65 - 199 [facility] mg/dL [facility] LABORATORY Comment: Supplemental ranges: <140 mg/dL before meals <180 mg/dL all other times of the day Specimen Anatomical Collection Method Collection Time Receive d Time (Source) Location / / Volume Laterality Blood specimen 07/06/2017 3:00 AM 017 3:00 (specimen) EST AM EST Daphne Shahid MD POINT OF CARE TEST ORDERABLE S Performing Organization Address [facility]/[place] [address] Potassium (07/06/2017 2:20 AM EST) athologist [facility] Potassium 3.9 3.5 - 5.0 [facility] mmol/L [facility] LABORATORY Comment: Please note: ??Patients with WBC [...] [facility]/ZIP Code Phon e Number [address] Differential, Automated (07/06/2017 2:20 AM EST) athologist Signature Neutrophils % 72.9 % [facility] LABORATORY Neutr Abs (ANC) 5.53 1.70 - [facility] 6.10 [facility] x10(3)/[facility] LABORATORY Lymphocytes % 16.4 % [facility] LABORATORY Lymphocytes Abs 1.2 0.9 - 3.2 [facility] x10(3)/[facility] LABORATORY Monocytes % 9.4 % [facility] LABORATORY Monocyte Abs 0.7 0.3 - 0.9 [facility] x10(3)/[facility] LABORATORY Eosinophils % 0.5 % [facility] LABORATORY Eosinophils Abs 0.0 0.0 - 0.4 [facility] x10(3)/[facility] LABORATORY Basophils % 0.4 % [facility] LABORATORY Basophils Abs 0.0 0.0 - 0.1 [facility] x10(3)/[facility] LABORATORY Immature Gran % 0.40 % [facility] [...] Abs 0.03 0.00 - 0.04 x10(3)/[facility] LABORATORY Specimen Anatomical Collection Method Collection Time Receive d Time (Source) Location / / Volume Laterality Blood specimen 07/06/2017 2:20 AM 017 2:33 (specimen) EST AM EST Resulting Agency Comment Spec In Lab Daphne Shahid MD HEMATOLOGY ORDERABLES Performing Organization Address City/State/[place] [address] (ABNORMAL) Hemogram (07/06/2017 2:20 AM EST) Analysis Performed At Patho logist Time Signature WBC 7.6 4.0 - 9.5 [facility] x10(3)/[facility] LABORATORY RBC 4.52 (L) 4.58 - [facility] 5.54 [facility] x10(6)/[facility] LABORATORY Hemoglobin 13.4 (L) 13.7 - [facility] 16.5 gm/dL [facility] LABORATORY Hematocrit 39.7 (L) 40.5 - [place] 48.5 % [facility] LABORATORY MCV 87.8 82.9 - [facility] 93.1 [facility] LABORATORY MCH 29.6 27.5 - [place] 32.1 pg [facility] LABORATORY MCHC 33.8 32.0 - [facility] 35.7 gm/dL [facility] LABORATORY Platelets 189 145 - 357 [facility] x10(3)/[facility] [facility] LABORATORY RDWSD 45.6 (H) 36.0 - [facility] 45.0 [facility] LABORATORY RDWCV 14.3 (H) 11.4 - [facility] 13.8 % [facility] LABORATORY MPV 9.1 7.6 - 12.9 [facility] LABORATORY nRBC % Auto 0.0 % [facility] LABORATORY nRBC Abs Auto 0.000 0.000 - [facility] 0.000 [facility] x10(3)/[facility] LABORATORY Specimen Anatomical Collection Method Collection Time Receive d Time (Source) Location / / Volume Laterality Blood specimen 07/06/2017 2:20 AM 017 2:33 (specimen) EST AM EST Resulting Agency Comment Spec In Lab Daphne Shahid MD HEMATOLOGY ORDERABLES Performing Organization Address City/State/[place] [address] (ABNORMAL) APTT (07/06/2017 2:20 AM EST) athologist Signature PTT 52 (H) 25 - 35 sec [facility] LABORATORY Comment: The recommended therapeutic range for fu ll dose, unfractionated heparin at [facility] is 80 ? 114 seconds. The use [...] Organization Address City/State/ZIP Code Phon e Number [address] POCT Glucose (07/06/2017 2:20 AM EST) athologist [facility] POC Glucose 115 65 - 199 [facility] mg/dL [facility] LABORATORY Comment: Supplemental ranges: <140 mg/dL before meals <180 mg/dL all other times of the day Specimen Anatomical Collection Method Collection Time Receive d Time (Source) Location / / Volume Laterality Blood specimen 07/06/2017 2:20 AM 017 2:20 (specimen) EST AM EST Daphne Shahid MD POINT OF CARE TEST ORDERABLE S Performing Organization Address City/[facility]/[place]IP [place] [address] (ABNORMAL) Cardiac Enzymes (LEB/CGP) (07/06/2017 2:20 AM EST) athologist [facility] Troponin-T 2.13 (H) 0.00 - [place] 0.00 ng/mL [facility] LABORATORY Comment: The 99th percentile for Troponin T is le ss than 0.01 ng/mL, any detectable cTnT concentration using this assay should be considered elevated. According to the third universal definit ion of myocardial infarction the following criteria with a clinical prese ntation consistent with acute myocardial ischemia meets the diagnosis for a myocardial infarction ([place]). Detection of a rise and/or fall of [...] additional sample may be indicated. Reference: Third [place] Definition of Myocardial Infarction. Journal of the [place] College of Cardiology 2012;60:1581-98 CK, Total 129 0 - 200 unit/L [facility] LABORATORY Specimen Anatomical Collection Method Collection Time Receive d Time (Source) Location / / Volume Laterality Blood specimen 07/06/2017 2:20 AM 017 2:33 (specimen) EST AM EST Resulting Agency Comment Spec In Lab Daphne Shahid MD CHEMISTRY ORDERABLES Performing Organization Address City/State/[place] [address] (ABNORMAL) Hemoglobin A1c (07/06/2017 2:20 AM EST) Analysis Performed At Patho logist Time Signature Hemoglobin A1C 6.8 (H) 4.3 - 5.6 [facility] LABORATORY Comment: Reference Range: 4.3 - [...] Mellitus, Diabetes Care 2013; 36: Suppl. 1, K30-52 Est Avg Gluc See note mg/dL KERBS [...] with hemoglobinopathies. Additional resources are available on [facility] website. Macario HAMMOND, Ruthann J, Deysi R, et al. ??Tr anslating the A1C assay into estimated average glucose values. ??Diabetes Care 2008:31(8):6810-4727. Specimen Anatomical Collection Method Collection Time Receive d Time (Source) Location / / Volume Laterality Blood specimen 07/06/2017 2:20 AM 017 2:34 (specimen) EST AM EST Resulting Agency Comment Spec In Lab Daphne Shahid MD CHEMISTRY ORDERABLES Performing Organization Address City/State/[place] [address] (ABNORMAL) Lipid Panel (07/06/2017 2:20 AM EST) [facility] gist Method Time Signature Chol, Total 150 <=239 [place] mg/dL [facility] LABORATORY Triglycerides 129 <=199 [facility] mg/dL [facility] LABORATORY HDL 32 (L) >=40 [place] mg/dL [facility] LABORATORY LDL Cholesterol 92 <=190 [facility] mg/dL [facility] LABORATORY Chol/HDL Ratio 4.7 ratio [facility] LABORATORY Lipid See Note [place] Interpretation [facility] LABORATORY Comment: Lipid management should be guided by a p atient? s ASCVD risk, goals and preferences. ACC/AHA Guidelines recommend high intens ity statin if clinical ASCVD or LDL greater than or equal to 190 mg/dL. http://InferXurl.com/DGF-TLR-Tgformlgr Adults aged 40-75 with LDL 70-189 mg/dL should have their 10 year ASCVD risk estimated with the ACC/AHA ASCVD risk es timator http://tools.acc.org/NSAXT-Jmtp-Xyhiwlqm r/ Statin should be discussed if risk [...] [facility]/ZIP Code Phon e Number [address] POCT Glucose (07/06/2017 1:09 AM EST) P athologist Signature POC Glucose 121 65 - 199 [facility] LABORATORY Comment: Supplemental ranges: <140 mg/dL before meals <180 mg/dL all other times of the day Specimen Anatomical Collection Method Collection Time Receive d Time (Source) Location / / Volume Laterality Blood specimen 07/06/2017 1:09 AM 017 1:09 (specimen) EST AM EST Daphne Shahid MD POINT OF CARE TEST ORDERABLE S Performing Organization Address City/[facility]/ZIP Code Phon e Number [address] POCT Glucose (07/06/2017 12:06 AM EST) P athologist Signature POC Glucose 147 65 - 199 [facility] mg/dL [facility] LABORATORY Comment: Supplemental ranges: <140 mg/dL before meals <180 mg/dL all other times of the day Specimen Anatomical Collection Method Collection Time Receive d Time (Source) Location / / Volume Laterality Blood specimen 07/06/2017 12:06 7 (specimen) AM EST 12:06 AM EST Daphne Shahid MD POINT OF CARE TEST ORDERABLE S Performing Organization Address City/[facility]/ZIP Code Phon e Number [place] [id number] HOSPITAL LABORATORY Drive (ABNORMAL) POCT Glucose (07/05/2017 10:56 PM EST) athologist Signature POC Glucose 200 (H) 65 - 199 [facility] RYAN mg/dL [facility] LABORATORY Comment: Supplemental ranges: <140 mg/dL before meals <180 mg/dL all other times of the day Specimen Anatomical Collection Method Collection Time Receive d Time (Source) Location / / Volume Laterality Blood specimen 07/05/2017 10:56 7 (specimen) PM EST 10:56 PM EST Daphne Shahid MD POINT OF CARE TEST ORDERABLE S Performing Organization Address City/State/[place] [address] (ABNORMAL) POCT Glucose (07/05/2017 10:05 PM EST) athologist Signature POC Glucose 225 (H) 65 - 199 [facility] mg/dL [facility] LABORATORY Comment: Supplemental ranges: <140 mg/dL before meals <180 mg/dL all other times of the day Specimen Anatomical Collection Method Collection Time Receive d Time (Source) Location / / Volume Laterality Blood specimen 07/05/2017 10:05 7 (specimen) PM EST 10:05 PM EST Daphne Shahid MD POINT OF CARE TEST ORDERABLE S Performing Organization Address City/State/[place] [address] (ABNORMAL) POCT Glucose (07/05/2017 9:02 PM EST) athologist Signature POC Glucose 301 (H) 65 - 199 [place] mg/dL [facility] LABORATORY Comment: Supplemental ranges: <140 mg/dL before meals <180 mg/dL all other times of the day Specimen Anatomical Collection Method Collection Time Receive d Time (Source) Location / / Volume Laterality Blood specimen 07/05/2017 9:02 PM 017 9:02 (specimen) EST PM EST Daphne Shahid MD POINT OF CARE TEST ORDERABLE S Performing Organization Address City/State/[place] [address] XR Chest PA or [...] 474 ms MUSE SYSTEM (Bezet) Calculated P [place] 50 degrees MUSE SYSTEM Calculated R [place] -28 degrees MUSE SYSTEM Calculated T [place] 90 degrees MUSE SYSTEM INTERPRETATION Sinus tachycardia [...] (ABNORMAL) Differential, Automated (07/05/2017 8:20 PM EST) [facility] Method Time Signature Neutrophils % 88.4 % [facility] LABORATORY Neutr Abs (ANC) 9.08 (H) 1.70 - [facility] 6.10 [facility] x10(3)/[facility] L LABORATORY Lymphocytes % 7.0 % [facility] LABORATORY Lymphocytes Abs 0.7 (L) 0.9 - 3.2 [facility] x10(3)/[facility] LABORATORY Monocytes % 3.7 % [facility] LABORATORY Monocyte Abs 0.4 0.3 - 0.9 [facility] x10(3)/[facility] LABORATORY Eosinophils % 0.1 % [facility] LABORATORY Eosinophils Abs 0.0 0.0 - 0.4 [facility] x10(3)/[facility] LABORATORY Basophils % 0.2 % [facility] LABORATORY Basophils Abs 0.0 0.0 - 0.1 [facility] x10(3)/[facility] LABORATORY Immature Gran % 0.60 [...] Abs 0.06 (H) 0.00 - 0.04 x10(3)/[facility] LABORATORY Specimen Anatomical Collection Method Collection Time Receive d Time (Source) Location / / Volume Laterality Blood specimen 07/05/2017 8:20 PM 017 8:27 (specimen) EST PM EST Resulting Agency Comment Spec In Lab Daphne Shahid MD HEMATOLOGY ORDERABLES Performing Organization Address City/State/[place] [address] (ABNORMAL) Hemogram (07/05/2017 8:20 PM EST) Analysis Performed At Patho logist Time Signature WBC 10.3 (H) 4.0 - 9.5 [facility] x10(3)/[facility] LABORATORY RBC 4.64 4.58 - [facility] RYAN 5.54 [facility] x10(6)/[facility] LABORATORY Hemoglobin 14.1 13.7 - [facility] 16.[facility] gm/dL [facility] LABORATORY Hematocrit 40.8 40.5 - [facility] 48.5 % [facility] LABORATORY MCV 87.9 82.9 - [facility] 93.1 [facility] LABORATORY MCH 30.4 27.5 - [facility] RYAN 32.1 pg [facility] LABORATORY MCHC 34.6 32.0 - [facility] RYAN 35.7 gm/dL [facility] LABORATORY Platelets 204 145 - 357 [facility] x10(3)/[facility] LABORATORY RDWSD 46.1 (H) 36.0 - [facility] 45.0 [facility] LABORATORY RDWCV 14.5 (H) 11.4 - [facility] RYAN 13.8 % [facility] LABORATORY MPV 9.7 7.6 - 12.9 [facility] LABORATORY nRBC % Auto 0.0 % [facility] LABORATORY nRBC Abs Auto 0.000 0.000 - [facility] RYAN 0.000 [facility] x10(3)/[facility] LABORATORY Specimen Anatomical Collection Method Collection Time Receive d Time (Source) Location / / Volume Laterality Blood specimen 07/05/2017 8:20 PM 017 8:27 (specimen) EST PM EST Resulting Agency Comment Spec In Lab Daphne Shahid MD HEMATOLOGY ORDERABLES Performing Organization Address City/State/ZIP Code Phon e Number [place] [id number] HOSPITAL LABORATORY Drive APTT (07/05/2017 8:20 PM EST) athologist Signature PTT 32 25 - 35 sec [facility] LABORATORY Comment: The recommended therapeutic range for fu ll dose, unfractionated heparin at [facility] is 80 ? 114 seconds. The use [...] Shahid MD HEMATOLOGY ORDERABLES Performing Organization Address [facility] [place] [address] (ABNORMAL) Cardiac Enzymes (LEB/CGP) (07/05/2017 8:20 PM EST) athologist Signature Troponin-T 2.11 (H) 0.00 - [facility] 0.00 ng/mL [facility] LABORATORY Comment: The 99th percentile for Troponin T is le ss than 0.01 ng/mL, any detectable cTnT concentration using this assay should be considered elevated. According to the third universal definit ion of myocardial infarction the following criteria with a clinical prese ntation consistent with acute myocardial ischemia meets the diagnosis for a myocardial infarction ([place]). Detection of a rise and/or fall of [...] additional sample may be indicated. Reference: Third [place] Definition of Myocardial Infarction. Journal of the [place] College of Cardiology 2012;60:1581-98 CK, Total 149 [...] [facility]/[place] [address] (ABNORMAL) Magnesium (07/05/2017 8:20 PM EST) P athologist Signature Magnesium 0.68 (L) 0.69 - 1.07 [facility] mmol/L [facility] LABORATORY Specimen Anatomical Collection Method Collection Time Receive d Time (Source) Location / / Volume Laterality Blood specimen 07/05/2017 8:20 PM 017 8:27 (specimen) EST PM EST Resulting Agency Comment Spec In Lab Daphne Shahid MD CHEMISTRY ORDERABLES Performing Organization Address City/[facility]/[place] [address] (ABNORMAL) Basic Metabolic Panel (non-fasting) (07/05/2017 8:20 PM EST) P athologist Signature Glucose Lvl 321 (H) 65 - 199 [facility] mg/dL [facility] LABORATORY Comment: Diabetes: >=200 mg/dL plus symp toms BUN 20 10 - 20 mg/dL [facility] LABORATORY Creatinine 1.12 0.80 - 1.50 mg/dL [facility] LABORATORY Sodium 139 135 - 145 mmol/L [facility] LABORATORY Potassium 3.8 3.5 - 5.0 mmol/L [facility] [...] or in patients with acute kidney failure. http://Rasmussen Reports/DHnkdep http://Rasmussen Reports/[facility] Specimen Anatomical Collection Method Collection Time Receive d Time (Source) Location / / Volume Laterality Blood specimen 07/05/2017 8:20 PM 017 8:27 (specimen) EST PM EST Resulting Agency Comment Spec In Lab Daphne Shahid MD CHEMISTRY ORDERABLES Performing Organization Address City/State/ZIP Code Phon e Number [address] (ABNORMAL) POCT Glucose (07/05/2017 7:32 PM EST) P athologist Signature POC Glucose 296 (H) 65 - 199 [facility] mg/dL [facility] LABORATORY Comment: Supplemental ranges: <140 mg/dL before meals <180 mg/dL all other times of the day Specimen Anatomical Collection Method Collection Time Receive d Time (Source) Location / / Volume Laterality Blood specimen 07/05/2017 7:32 PM 017 7:32 (specimen) EST PM EST Daphne Shahid MD POINT OF CARE TEST ORDERABLE S Performing Organization Address City/[facility]/[place] [address] CARDIAC CATHETERIZATION (07/05/2017 6:47 PM EST) Specimen (Source) Anatomical Location Collection Method / Collectio n Time Received Time / Laterality Volume Narrative CARDIOMAC SYSTEM - 07/05/2017 7:27 PM ES T ?[facility] ? Cardiac Cathete rization/Intervention Report ? Patient Name: Natalya, Gregory ? Procedure Date: 07/05/2017 ? A #: [id number] ? Primary Physician: Clarisa, Jet T ? Case #: [id number] ? File Name: [id number] ? Catheterization Order Number: [id number] ? [facility] ? Final Report [place], [place] ? Patient Name: ? Gregory Natalya ?ID#: ?[id number] ? : ?1945 ? Procedure Date: ? [...] presented with: non -STEMI (w/i 7 days). [place] ?[employer]iovascular Society angina c lass was IV. [...] site angio graphy and IABP insertion in laboratory clerk. ? Jet Mckenna M.D. ? Electronically Signed by: Jet bunch M.D. ? Report Finalized: 07/05/2017 ??19:23 ? Report Last Ammended: 10/26/2017 ??10:29 ? Procedure Note Jet Mckenna MD - 10/26/2017Formatt ing of this note might be different from the original. [facility] Cardiac Catheterization/Intervention Re port Patient Name: Gregory Hoang Procedure Date: 07/05/2017 A #: [id number] Primary Physician: Jet Mckenna Case #: [id number] File Name: [id number] Catheterization Order Number: [id number] [facility] Final Report [place], [place] Patient Name: Gregory Hoang ID#: [id number] 3- : 1945 Procedure Date: July 05, [...] presented with: non-STEMI ( w/i 7 days). [place] [employer] angina class was IV. No [...] site angiograph y and IABP insertion in laboratory clerk. Jet Mckenna M.D. Electronically Signed by: Jet [...] E ? (Age): 1945(72y) Med Rec#: ? [id number] ?Sex: ?M ? Site Loc: ? [facility] ?Ht / Wt: ??173(cm)/86(kg) Pt. Loc: ?CCU ? BSA: ?2 Study Date: ?? 07/05/2017 ?Pt. Type: Inpatient Tape: ? Referring: Daphne Shahid ([id number]) Referring: MANDA ALCANTAR Reading: Blade Preston ([id number]) Superintendent Police: Dayami Paula BA, RUST Diagnosis: *ICD-10-PCS Non-ST elevation (NSTEMI) m yocardial [...] E-wave Vmax ?0.8 ?m/sec ? MV deceleration [id number] ?msec ? MV A-wave Vmax ?0.8 ?m/sec [...] ? Mid-Inferior ?Akinetic ? Mid-Inferoseptal ?Hypokinetic ? [place]-Septal ? Akinetic ? [place]-Anterior ? Hypokinetic ? [place]-Lateral ?Hypokinetic ? [place]-Inferior ? Akinetic ? [place]-Tip ?Akinetic ? This report has been electronically sign ed by: _ Blade Preston MD ? 07/06/2017 08 :53:15 Images reviewed and interpretation verif ied [facility] Cardiac Ultrasound Laboratory Procedure Note Blade Preston MD - 07/06/2017Formatt ing of this note might be different from the original. Procedure: Transthoracic Echocardiogram Patient: NATALYA MCBRIDE(Age): [birth year]72y) Med Rec#: [id number] Sex: M Site Loc: [facility] Ht / Wt: 173(cm)/86(kg) Pt. Loc: CCU BSA: 2 Study Date: 07/05/2017 Pt. Type: Inpatie nt Tape: Referring: Daphne Shahid ([id number]) Referring: MANDA ALCANTAR Reading: Blade Preston ([id number]) Superintendent Police: Dayami Paula BA RUST Diagnosis: *ICD-10-PCS Non-ST elevation (NSTEMI) m yocardial [...] MV E-wave Vmax 0.8 m/sec MV deceleration [id number] msec MV A-wave Vmax 0.8 m/sec MV [...] Hypokinetic Mid-Posterolateral Hypokinetic Mid-Inferior Akinetic Mid-Inferoseptal Hypokinetic [place]-Septal Akinetic [place]-Anterior Hypokinetic [place]-Lateral Hypokinetic [place]-Inferior Akinetic [place]-Tip Akinetic This report has been electronically sign ed by: _ Blade Preston MD 07/06/2017 08:53:15 Images reviewed and interpretation verif ied [facility] Cardiac Ultrasound Laboratory Daphne Shahid MD ECHO ORDERABLES Performing Organization Address City/State/ZIP Code Phon e Number [facility] Differential, Automated (07/05/2017 4:55 PM EST) P athologist Signature Neutrophils % 77.0 % [facility] LABORATORY Neutr Abs (ANC) 5.26 1.70 - [facility] 6.10 [facility] x10(3)/[facility] LABORATORY Lymphocytes % 13.3 % [facility] LABORATORY Lymphocytes Abs 0.9 0.9 - 3.2 [facility] x10(3)/[facility] LABORATORY Monocytes % 8.2 % [facility] LABORATORY Monocyte Abs 0.6 0.3 - 0.9 [facility] x10(3)/[facility] LABORATORY Eosinophils % 0.7 % [facility] LABORATORY Eosinophils Abs 0.0 0.0 - 0.4 [facility] x10(3)/[facility] LABORATORY Basophils % 0.4 % [facility] LABORATORY Basophils Abs 0.0 0.0 - 0.1 [facility] x10(3)/[facility] LABORATORY Immature Gran % 0.40 % BAR[facility] [...] Abs 0.03 0.00 - 0.04 x10(3)/[facility] MAR Y [facility] LABORATORY Specimen Anatomical Collection Method Collection Time Receive d Time (Source) Location / / Volume Laterality Blood specimen 07/05/2017 4:55 PM 017 5:24 (specimen) EST PM EST Resulting Agency Comment Spec In Lab Daphne Shahid MD HEMATOLOGY ORDERABLES Performing Organization Address City/State/[place] [address] (ABNORMAL) Hemogram (07/05/2017 4:55 PM EST) Analysis Performed At Patho logist Time Signature WBC 6.8 4.0 - 9.5 [facility] x10(3)/[facility] LABORATORY RBC 4.67 4.58 - [place] 5.54 [facility] x10(6)/[facility] LABORATORY Hemoglobin 14.0 13.7 - [place] RYAN 16.5 gm/dL [facility] LABORATORY Hematocrit 41.0 40.5 - [place] 48.5 % [facility] LABORATORY MCV 87.8 82.9 - [facility] 93.1 [facility] LABORATORY MCH 30.0 27.5 - [place] 32.1 pg [facility] LABORATORY MCHC 34.1 32.0 - [place] ZHA[facility]AN 35.7 gm/dL [facility] LABORATORY Platelets 197 145 - 357 [facility] x10(3)/[facility] LABORATORY RDWSD 46.4 (H) 36.0 - [place] RYAN 45.0 [facility] LABORATORY RDWCV 14.5 (H) 11.4 - [facility] 13.8 % [facility] LABORATORY MPV 9.7 7.6 - 12.9 [facility] LABORATORY nRBC % Auto 0.0 % [facility] LABORATORY nRBC Abs Auto 0.000 0.000 - [facility] 0.000 [facility] x10(3)/[facility] LABORATORY Specimen Anatomical Collection Method Collection Time Receive d Time (Source) Location / / Volume Laterality Blood specimen 07/05/2017 4:55 PM 017 5:24 (specimen) EST PM EST Resulting Agency Comment Spec In Lab Daphne Shahid MD HEMATOLOGY ORDERABLES Performing Organization Address City/State/[place] [address] (ABNORMAL) Cardiac Enzymes (LEB/CGP) (07/05/2017 4:55 PM EST) P athologist Signature Troponin-T 1.69 (H) 0.00 - [place] 0.00 ng/mL [facility] LABORATORY Comment: The 99th percentile for Troponin T is le ss than 0.01 ng/mL, any detectable cTnT concentration using this assay should be considered elevated. According to the third universal definit ion of myocardial infarction the following criteria with a clinical prese ntation consistent with acute myocardial ischemia meets the diagnosis for a myocardial infarction ([place]). Detection of a rise and/or fall of [...] additional sample may be indicated. Reference: Third [place] Definition of Myocardial Infarction. Journal of the [place] College of Cardiology 2012;60:1581-98 CK, Total 191 0 - 200 unit/L [facility] LABORATORY Specimen Anatomical Collection Method Collection Time Receive d Time (Source) Location / / Volume Laterality Blood specimen 07/05/2017 4:55 PM 017 5:56 (specimen) EST PM EST Resulting Agency Comment Spec In Lab Daphne Shahid MD CHEMISTRY ORDERABLES Performing Organization Address City/State/ZIP Code Phon e Number [address] (ABNORMAL) pro-Brain Natriuretic Peptide (07/05/2017 4:55 PM EST) P athologist Signature ProBNP 1,598 (H) <=125 [facility] LABORATORY Specimen Anatomical Collection Method Collection Time Receive d Time (Source) Location / / Volume Laterality Blood specimen 07/05/2017 4:55 PM 017 5:24 (specimen) EST PM EST Resulting Agency Comment Spec In Lab Daphne Shahid MD CHEMISTRY ORDERABLES Performing Organization Address City/[facility]/ZIP Code Phon e Number [address] Magnesium (07/05/2017 4:55 PM EST) athologist Signature Magnesium 0.78 0.69 - 1.07 [facility] mmol/L [facility] LABORATORY Specimen Anatomical Collection Method Collection Time Receive d Time (Source) Location / / Volume Laterality Blood specimen 07/05/2017 4:55 PM 017 5:24 (specimen) EST PM EST Resulting Agency Comment Spec In Lab Daphne Shahid MD CHEMISTRY ORDERABLES Performing Organization Address City/State/[place] [address] (ABNORMAL) Basic Metabolic Panel (non-fasting) (07/05/2017 4:55 PM EST) athologist Signature Glucose Lvl 230 (H) 65 - 199 [facility] mg/dL [facility] LABORATORY Comment: Diabetes: >=200 mg/dL plus symp toms BUN 19 10 - 20 mg/dL [facility] LABORATORY Creatinine 1.04 0.80 - 1.50 mg/dL [facility] LABORATORY Sodium 142 135 - 145 mmol/L [facility] LABORATORY Potassium 4.0 3.5 - 5.0 mmol/L [facility] [...] or in patients with acute kidney failure. http://Rasmussen Reports/DHnkdep http://Rasmussen Reports/DHMCnkf Specimen Anatomical Collection Method Collection Time Receive d Time (Source) Location / / Volume Laterality Blood specimen 07/05/2017 4:55 PM 017 5:24 (specimen) EST PM EST Resulting Agency Comment Spec In Lab Daphne Shahid MD CHEMISTRY ORDERABLES Performing Organization Address City/[facility]/[place] [address] (ABNORMAL) APTT (07/05/2017 4:55 PM EST) P athologist Signature PTT 41 (H) 25 - 35 sec [facility] LABORATORY Comment: The recommended therapeutic range for fu ll dose, unfractionated heparin at [facility] is 80 ? 114 seconds. The use [...] [facility]/[place] [address] (ABNORMAL) POCT Glucose (07/05/2017 4:53 PM EST) P athologist Signature POC Glucose 208 (H) 65 - 199 [facility] mg/dL [facility] LABORATORY Comment: Supplemental ranges: <140 mg/dL before meals <180 mg/dL all other times of the day Specimen Anatomical Collection Method Collection Time Receive d Time (Source) Location / / Volume Laterality Blood specimen 07/05/2017 4:53 PM 017 4:53 (specimen) EST PM EST Daphne Shahid MD POINT OF CARE TEST ORDERABLE S Performing Organization Address City/[facility]/[place] [address] EKG 12 Lead (07/05/2017 4:32 PM EST) Component Value Ref Range Test Analysis Performed Pathologis t Method Time At Signature Ventricular rate 97 BPM MUSE SYSTEM Atrial Rate 97 BPM MUSE SYSTEM P-R Interval 148 ms MUSE SYSTEM QRS Duration 96 ms MUSE SYSTEM Q-T Interval 364 ms MUSE SYSTEM QTC Calculated 462 ms MUSE SYSTEM (Bezet) Calculated P [place] 48 degrees MUSE SYSTEM Calculated R [place] -33 degrees MUSE SYSTEM Calculated T [place] 98 degrees MUSE SYSTEM INTERPRETATION Normal sinus [...] post-op day 1 in the AM Give FL if unable to take PO, Routine Given [...] in dextrose 5% 250 mL EST infusion (PULVERIZER OPERATOR) CONTINUOUS PRN, Starting on Wed07/05/17 at [...] post-op day 1 in the AM Give FL if unable to take PO, Routine atorvastatin [...] post-op day 1 in the AM Give FL if unable to take PO
Routine Group [...]
Routine documented in this encounter Care Teams Unit Aide Tech Relationship Specialty Start Date End Date Lovely Vicente MD PCP - General 04/16/[address] [place] [address] documented as of this encounter
--- OUTSIDE RECORDS SUMMARY | 2022-02-23 09:01 | XMS_ITS | Encounter Summary ---
:1945 Author Organization [facility] Address [address] [place] [address] Care Team Providers Name Role Phone Lovely Vicente MD Primary Care Provider Reason for Visit Reason Comments Skin Check Encounter Details Date Type Department Care Team Description 11/05/2015 Office Visit Dermatology at Rigoberto Forman benign nevi; Abdelrahman HOOPER MD Lentigines; [address] [facility] History of melanoma; [place] [address] Skin exam for malignant neoplasm [phone] [facility]-DERMATOLGY [place], [place] [address] Social History Tobacco Use Types [...] Diagnostic, Drum (ACCU-CHEK COMPACT TEST) Strip by [facility].(Non- Drug; Combo Route) route 2 times daily. [...] Visit Cardiology Vitaliy Nobles MD [facility] CARDIOLOGY [place], [place] [address] (Wo rk) documented as of this encounter Visit Diagnoses Diagnosis Multiple benign nevi Benign neoplasm of skin, site unspecifie d Lentigines Other dyschromia History of melanoma Personal history of malignant melanoma o f skin Skin exam for malignant neoplasm Screening for malignant neoplasm of the skin documented in this encounter Care Teams Doughnut Machine Operator Helper Relationship Specialty Start Date End Date Lovely Vicente MD PCP - General 04/16/15 [address] [place] [address] documented as of this encounter
--- OUTSIDE RECORDS SUMMARY | 2022-02-23 09:02 | XMS_ITS | Encounter Summary ---
:1945 Author Organization [facility] [place] [address] Care Team Providers Name Role Phone Adi Costello MD Primary Care Provider Reason for Visit Reason Comments Annual Exam ckeck his groin and melanoma follow-up Encounter Details Date Type Department Care Team Description 11/21/2010 Follow-Up Dermatology Arik Tipton Melanoma (Primary Dx) [facility] MD Jorge [place] [phone] DERMATOLOGY DEPT . 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 His only complaints are leg cramps, skin [...] changes: Arik Tipton MD Section of Dermatology [facility] documented in this encounter Plan of Treatment Upcoming Encounters Date Type Specialty Care Team Description 03/26/2022 Office Visit Cardiology Vitaliy Nobles MD [facility] CARDIOLOGY [place], [place] 0[address] (Wo rk) documented as of this encounter Visit Diagnoses Diagnosis Melanoma - Primary Melanoma of skin, site unspecified documented in this encounter Care Teams Cloud Physicist Relationship Specialty Start Date End Date Adi Costello MD PCP - General 06/17/10 09/21/11 [address] [place] [address] documented as of this encounter
--- OUTSIDE RECORDS SUMMARY | 2022-02-23 09:02 | XMS_ITS | Encounter Summary ---
:1945 Author Organization [facility] [place] [address] Care Team Providers Name Role Phone Angela Holliday APRN Primary Care Provider Encounter Details Date Type Department Care Team Description 03/15/2013 Telephone General Surgery at [facility] [place], [place] [address] Social History Tobacco Use Types Packs/Day [...] Cardiology Vitaliy Nobles MD [facility] CARDIOLOGY [place], [place] [address] (Wo rk) documented as of this encounter Visit Diagnoses Not on filedocumented in this encounter Care Teams Senior It Recruiter Relationship Specialty Start Date End Date Angela Holliday APRN PCP - General 01/25/13 04/15/15 [address] [facility] [place] [address] documented as of this encounter
--- OUTSIDE RECORDS SUMMARY | 2022-02-23 09:02 | XMS_ITS | Encounter Summary ---
:1945 Author Organization [facility] [place] [address] Care Team Providers Name Role Phone Unknown Primary Care Provider Unavailable Reason for Visit Reason Comments Other Encounter Details Date Type Department Care Team Description 10/05/2012 Telephone Dermatology at [facility] Rigoberto Garcia III, [address] [place] [address] [facility] [phone] TEJA MARIE-DERMAT [place] [id number] (Wo rk) Social History Tobacco Use Types [...] Visit Cardiology Vitaliy Nobles MD [facility] CARDIOLOGY [place], [place] [address] (Wo rk) documented as of this encounter Visit Diagnoses Not on filedocumented in this encounter Care Teams Brush Painter Relationship Specialty Start Date End Date Unknown PCP - General 10/04/12 01/24/13 None documented as of this encounter
--- OUTSIDE RECORDS SUMMARY | 2022-02-23 09:02 | XMS_ITS | Encounter Summary ---
:1945 Author Organization [facility] [place] [address] Care Team Providers Name Role Phone Brody Berrios MD Primary Care Provider Reason for Visit Reason Comments Annual Exam Encounter Details Date Type Department Care Team Description 09/22/2011 Follow-Up Dermatology Arik Tipton Psoriasis (Primary Dx); [facility] MD Jorge Personal history of other malignant neop lasm of skin Drive [place] [id number] DERMATOLOGY DEPT . 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 His only complaints tail bone and scalp [...] changes: Arik Tipton MD Section of Dermatology [facility] documented in this encounter Plan of Treatment Upcoming Encounters Date Type Specialty Care Team Description 03/26/2022 Office Visit Cardiology Vitaliy Nobles MD [facility] ER DR CARDIOLOGY [place], [place] [address] (Wo rk) documented as of this encounter Visit Diagnoses Diagnosis Psoriasis - Primary Other psoriasis Personal history of other malignant neop lasm of skin documented in this encounter Care Teams Running Specialist Relationship Specialty Start Date End Date Brody Berrios MD PCP - General 09/22/11 10/03/[address] [place] [address] documented as of this encounter
--- OUTSIDE RECORDS SUMMARY | 2022-02-23 09:02 | XMS_ITS | Encounter Summary ---
:1945 Author Organization [facility] Address [address] [place] [address] Care Team Providers Name Role Phone Unknown Primary Care Provider Unavailable Reason for Visit Reason Comments Skin Check Encounter Details Date Type Department Care Team Description 10/04/2012 Follow-Up Dermatology at Rigoberto Forman soriasis (Primary Dx); Abdelrahman HOOPER MD Neoplasm of unspecified nature of bone, soft tissue, and skin; [address] [facility] Skin lesion of chest wall; [place] [address] Seborrheic psoriasis- scalp and ingtergl uteal area [phone] [facility]-DER[facility] [place], [place] [address] (Wo rk) Social History Tobacco [...] Rigoberto Albarran MD Section of Dermatology [facility] documented in this encounter Plan of Treatment Upcoming Encounters Date Type Specialty Care Team Description 03/26/2022 Office Visit Cardiology Vitaliy Nobles MD [facility] ER DR CARDIOLOGY [place], [place] 0[address] (Wo rk) documented as of [...] Component Value Ref Test Analysis Performed At [facility] Range Method Time Signature Surgical CERNER Pathology ? [facility] Report ? Provider: ?? RIGOBERTO ALBARRAN III Pt. Name: ?? DON HOANG ?A ? Acc #: ?[id number] ? Pt. ? Col Date: ?? 3 [...] MD PATHOLOGY/CYTOLOGY ORDERABLE S Performing Organization Address City/[facility]/[place]IP [place] [address] CERNER YOOWALKIUM Specimen to Pathology (NON-OR) (10/04/2012 9:55 AM EDT) Specimen Anatomical Collection Method Collection Time Receive d Time (Source) Location / / Volume Laterality AP Specimen 10/04/2012 9:55 AM 3 9:56 EDT AM EDT Narrative CERNER MILLENNIUM - 10/04/2012 9:56 AM E DT Specimen requisition ordered. ??Separate Pathology report to follow Rigoberto Albarran III, MD PATHOLOGY/CYTOLOGY ORDERABLE S Performing Organization Address City/[facility] [place] [address] CERNER AdzunaENNIUM documented in this encounter Visit Diagnoses Diagnosis Psoriasis - Primary Other psoriasis Neoplasm of unspecified nature of bone, soft tissue, and skin Skin lesion of chest wall Unspecified disorder of skin and subcuta neous tissue Seborrheic psoriasis- scalp and ingtergl uteal area Other psoriasis documented in this encounter Care Teams Corporate Specialist Relationship Specialty Start Date End Date Unknown PCP - General 10/04/12 01/24/13 None documented as of this encounter
--- OUTSIDE RECORDS SUMMARY | 2022-02-23 09:02 | XMS_ITS | Encounter Summary ---
:1945 Author Organization [facility] [place] [address] Care Team Providers Name Role Phone Angela Holliday APRN Primary Care Provider Encounter Details Date Type Department Care Team Description 03/28/2013 Surgery Main Operating Room Mesha Mcknight, THYROIDECTOMY, [facility] 15.04[facility] [address] [place]idd[place] [address] [place] [address] [phone] (Wo rk) Social History Tobacco Use Types [...] please call the General Surgery nurse at [phone], since this may mean that you need morecalcium. Follow-up Appointment: Will be scheduled with Dr. Mcknight in 6 weeks Date and time as well as any required labs will be mailed to you Please call [phone] to confirm date and time of your [...] by calcium supplementation. Phone number for questions: [phone] before 5 PM weekdays [phone] after 5 PM and on weekends/holidays Please follow up with Urology as per their recommendations for Bob removal AttachmentsThe following attachments cannot be sent through Care Everywhere. THYROIDECTOMY: WHAT TO EXPECT AT HOME (MACEDONIAN)URINARY CATHETER CARE: AFTER YOUR VISIT (MACEDONIAN)documented in this encounter Medications at Time of [...] is a 68 y.o. male presents to [facility] today for total thyroidectomy. See [...] Willams MD - 03/28/2013 3:43 PM EDT [facility] Operative Note Patient Name: Gregory Fatima : [id number] MR#: [id number] Case Date: 03/28/2013 Surgeon: Surgeon(s) and Role: [...] patient was extubated and taken to the [facility] in stable condition. At the [...] Operative Note Patient Name: Gregory Fatima : [id number] MR#: [id number] Case Date: 03/28/2013 Surgeon: Surgeon(s) and Role: [...] Nobles MD [facility] CARDIOLOGY [place], [place] [address] (Wo rk) documented as of [...] City/[facility]/[place]IP [place] [address] CERNER MILLENNIUM (ABNORMAL) POCT [...] City/[facility]/[place] [address] CERNER MILLENNIUM (ABNORMAL) POCT [...] City/[facility]/ZIP Code Phon e Number [address] CERNER MILLENNIUM (ABNORMAL) POCT [...] City/[facility]/ZIP Code Phon e Number [address] CERNER MILLENNIUM (ABNORMAL) POCT [...] City/[facility]/ZIP Code Phon e Number [address] CERNER MILLENNIUM (ABNORMAL) POCT [...] City/[facility]/[place] [address] CERNER MILLENNIUM (ABNORMAL) POCT [...] City/[facility]/Z[place] [address] CERNER MILLENNIUM (ABNORMAL) POCT [...] S Performing Organization Address City/[facility]/ZIP [facility] [place] [address] CERNER MILLENNIUM Specimen to [...] Address City/State/ZIP Code [place] [address] RAKESH [facility] Pathology Addendum Report (03/28/2013 12:03 PM EDT) Component Value Ref Test Analysis Performed At [facility] Range Method Time Signature Addendum [facility] Report ? [facility] ? Provider: ?? MESHA MCKNIGHT Pt. Name: ?? GREGORY FATIMA ? Acc #: ?[id number] ?Pt. MRN: ?[id number] ? Col Date: ?? 03/28/2013 ?/Sex: ?1945,(68 [...] MD PATHOLOGY/CYTOLOGY ORDERABLE S Performing Organization Address [facility]/State/ZIP [place] [address] CERNER [facility]ON[facility]ENTER[facility] Surgical Pathology Report (03/28/2013 12:03 PM EDT) Component Value Ref Test Analysis Performed At [facility] Range Method Time Signature Surgical [facility] Pathology ? [facility] Report ? Provider: ?? MESHA MCKNIGHT Pt. Name: ?? GREGORY FATIMA ? Acc #: ?[id number] ?Pt. MRN: ?[id number] ? Col Date: ?? 03/28/2013 ?/Sex: ?1945,(68 [...] and ? calcifications. ? [facility] ? Provider: ?? MESHA MCKNIGHT Pt. Name: ?? GREGORY FATIMA ? Acc #: ?[id number] ?Pt. MRN: ?[id number] ? Col Date: ?? 03/28/2013 ?/Sex: ?1945,(68 years),Male ? Rec Date: ?? 03/28/2013 ?LOC: ?[facility] ? SURGICAL PATHOLOGY ? SECTIONS/PROCESSING: Survey Questionnaire Designer sections are subm itted. (R6) ? B [...] MD PATHOLOGY/CYTOLOGY ORDERABLE S Performing Organization Address City/[facility]/ZIP Code Phon e Number [place] [address] [facility] Frozen Section Report (03/28/2013 12:03 PM EDT) Component Value Ref Test Analysis Performed At [facility] Range Method Time Signature Frozen CERNER Section ? [facility] Report ? Provider: ?? MESHA MCKNIGHT Pt. Name: ?? GREGORY FATIMA ? Acc #: ?[id number] ?Pt. MRN: ?[id number] ? Col Date: ?? 03/28/2013 ?/Sex: ?1945,(68 years),Male ? Rec Date: ?? 03/28/2013 ?LOC: ?[facility] ? FROZEN SECTION REPORT ? ---Frozen Section Report--- ? Part A - Intraoperati ve gross consultation was performed. ??The case was ? discussed by phone with Dr. Mcknight, and no frozen ? section was performed. ? 03/31/13 ??Verified by: ??César STRANGE, Ruben Yusuf, [facility] gist ? The attending [facility] gist whose electronic signature appears [...] MD PATHOLOGY/CYTOLOGY ORDERABLE S Performing Organization Address City/[facility]/ZIP [place] [address] CERNER LightboxIUM POCT Glucose (03/28/2013 12:00 PM EDT) P athologist Signature POC Glucose 134 60 - 199 [facility] mg/dL [facility] Comment: Supplemental ranges: <110 mg/dL before meals <200 mg/dL all other times of the day Specimen Anatomical Collection Method Collection Time Receive d Time (Source) Location / / Volume Laterality Blood specimen 03/28/2013 12:00 3 (specimen) PM EDT 12:00 PM EDT Mesha Mcknight MD POINT OF CARE TEST ORDERABLE S Performing Organization Address City/State/[place] [address] [facility] Specimen to Pathology (surgical or derm) (03/28/2013 11:58 AM EDT) Specimen Anatomical Collection Method Collection Time Receive d Time (Source) Location / / Volume Laterality AP Specimen 03/28/2013 11:58 03/28/2013 AM EDT 11:58 AM EDT Narrative [facility] - 03/28/2013 11:58 AM EDT Specimen requisition ordered. ??Separate Pathology report to follow Mesha Mcknight MD PATHOLOGY/CYTOLOGY ORDERABLE S Performing Organization Address City/[facility]/ZIP [place] [address] [facility] Antibody screen (03/28/2013 9:37 AM EDT) Analysis Performed At Path logist Time Signature Ab Screen Negative [facility] Expires at [id number] [facility] 2358 on: [facility] Specimen Anatomical Collection Method Collection Time Receive d Time (Source) Location / / Volume Laterality Blood specimen 03/28/2013 9:37 AM 013 9:37 (specimen) EDT AM EDT Resulting Agency Comment Spec In Lab Mesha Mcknight MD BLOOD BANK ORDERABLES Performing Organization Address City/[facility]/ZIP Code Phon e Number [address] [facility] ABO/Rh Typing (03/28/2013 9:37 AM EDT) athologist Signature ABORh Type O Pos CERNER MILLENNIUM Specimen Anatomical Collection Method Collection Time Receive d Time (Source) Location / / Volume Laterality Blood specimen 03/28/2013 9:37 AM 013 9:37 (specimen) EDT AM EDT Resulting Agency Comment Spec In Lab Mesha Mcknight MD BLOOD BANK ORDERABLES Performing Organization Address City/State/[place] [address] CERNER MILLENNIUM Differential, Automated [...] Performing Organization Address City/State/Z[place] [address] CERNER MILLENNIUM (ABNORMAL) Basic [...] intervals supplied above were not validated at [facility]. Results from pediatri c patients should be [...] Mcknight MD CHEMISTRY ORDERABLES Performing Organization Address City/[facility]/ZIP Code Phon e Number [address] CERNER MILLENNIUM (ABNORMAL) CBC [...] Mcknight MD HEMATOLOGY ORDERABLES Performing Organization Address City/[facility]/ZIP Code Phon e Number [address] CERNER MILLENNIUM POCT Glucose (03/28/2013 9:17 AM EDT) athologist Signature POC Glucose 108 60 - 199 CERNER mg/dL [facility] Comment: Supplemental ranges: <110 mg/dL before meals <200 mg/dL all other times of the day Specimen Anatomical Collection Method Collection Time Receive d Time (Source) Location / / Volume Laterality Blood specimen 03/28/2013 9:17 AM 013 9:17 (specimen) EDT AM EDT Mesha Mcknight MD POINT OF CARE TEST ORDERABLE S Performing Organization Address City/State/[place] [address] RAKESH CARVALHOIUM Specimen to [...] Address City/State/[place] [address] RAKESH WALKER documented in [...] override documented in this encounter Care Teams Scale Model Maker Relationship Specialty Start Date End Date Angela Holliday APRN PCP - General 01/25/13 04/15/15 [address] [place] [address] documented as of this encounter
--- OUTSIDE RECORDS SUMMARY | 2022-02-23 09:02 | XMS_ITS | Encounter Summary ---
:1945 Author Organization [facility] [place] [address] Care Team Providers Name Role Phone NeilSom conner STACIE Primary Care Provider Reason for Visit Reason Comments Establish Care OBST GOITER Encounter Details Date Type Department Care Team Description 01/25/2013 Office Visit General Surgery at Manny Mcknight er colloid, toxic, [facility] [place] Eliseo nodular (Primary Dx) [facility]ly [facility] [place] GENERAL SURGERY [id number] [place], [place] [id number] [phone] Social History Tobacco Use Types Packs/Day Years [...] the thyroid gland were obtained using a [employer] MicroMaxx and an HFL38/13-6 broadband linear array [...] on physical exam. ROS: No H/O asthma, DE, stroke, pulmonary embolus or phlebitis. Comprehensive review [...] Nobles MD [facility] ER DR CARDIOLOGY [place], [place] [address] (Wo rk) documented [...] 406 ms MUSE SYSTEM (Bezet) Calculated P [place] 52 degrees MUSE SYSTEM Calculated R [place] 0 degrees MUSE SYSTEM Calculated T [place] 40 degrees MUSE SYSTEM INTERPRETATION Normal sinus [...] storm documented in this encounter Care Teams Talent Rep Relationship Specialty Start Date End Date Som Holliday APRN PCP - General 01/25/13 04/15/[address] [place] [address] documented as of this encounter
--- OUTSIDE RECORDS SUMMARY | 2022-02-23 09:02 | XMS_ITS | Encounter Summary ---
:1945 Author Organization [facility] [place] [address] Care Team Providers Name Role Phone Angela Holliday APRN Primary Care Provider Encounter Details Date Type Department Care Team Description 01/25/2013 Clinical [place] [address] Social History Tobacco Use Types Packs/Day [...] MD [facility] ER CARDIOLOGY [place], [place] [address] (Wo rk) documented as of this encounter Visit Diagnoses Not on filedocumented in this encounter Care Teams Forge Shop Supervisor Relationship Specialty Start Date End Date Angela Holliday APRN PCP - General 01/25/13 04/15/[address] [place] [address] documented as of this encounter
--- OUTSIDE RECORDS SUMMARY | 2022-02-23 09:03 | XMS_ITS | Encounter Summary ---
:1945 Author Organization [facility] Address [address] [place] [address] Care Team Providers Name Role Phone Unknown, Provider Primary Care Provider Encounter Details Date Type Department Care Team Description 07/11/2014 Results Only [facility] Shruthi Horowitz MD Laboratory Services - [address] [place] [address] [place] [address] 0 [facility] [place] [address] [phone] Social History Tobacco Use Types Packs/Day Years Used Date Never Assessed Sex Assigned at Date Recorded Not on file documented as of this encounter Plan of Treatment Not on filedocumented as of this encounter Procedures Procedure Name Priority Date/Time Associated Diagnosis Comme [facility] SURGICAL PATHOLOGY Routine 07/11/2014 8:55 EST Re sults for this procedure are i n the results section. documented in this encounter Results SURGICAL PATHOLOGY (07/11/2014 8:55 EST) Pathology Report: SURGICAL PATHOLOGY REPORT [facility] Reports generated via electronic interface contain sorin ginal data; LABORATORY however they are lacking the format of the original re port. SERVICES Caution should be taken when reading/interpreting unfo rmatted reports. Name: ? DON HOANG ? Accession #: ? [id number] ? : ? 1945 (Age: 69) ??M [...] 6.5 x 3.0 cm in aggreg ate). Bulk Plant Agent sections are submitted in 1- 10 (approximately 40% of the specimen is submitted). Viry Nunez 07/12/2014 11:21 AM End of Report Specimen Performing Organization Address City/State/ZIP Code Phon e Number [facility] [address] [place] [address] SERVICES documented in this encounter Visit Diagnoses Not on filedocumented in this encounter Care Teams Customer Service Supervisor Relationship Specialty Start Date End Date Unknown, Provider, PCP - General 03/07/14 07/12/14 documented as of this encounter
--- OUTSIDE RECORDS SUMMARY | 2022-02-23 09:03 | XMS_ITS | Clinical Summary ---
:1945 Author Organization [facility] Address [address] [place] [address] Care Team Providers Name Role Phone Lovely Vicente MD Primary Care Provider Encounters Date Type Specialty Care Team Description 02/20/2022 Lab Requisition Clinical Laboratory Outr Resulting Lab , Provider 01/28/2022 Lab Requisition Clinical Laboratory Outr Resulting Lab , Provider from Last 3 Months Social History Tobacco Use Types Packs/Day Years Used Date Never Assessed Sex Assigned at Date Recorded Not on file Plan of Treatment Health Maintenance Due Date Last Done Comments Hepatitis C Screen 1945 COVID-19 Vaccine (#1) 1945 Fall Risk Screening 2011 Procedures Procedure Name Priority Date/Time Associated Comments Diagnosis PSA TOTAL, Routine 02/20/2022 9:04 EDT Results for this DIAGNOSTIC procedure are i n the results section. COVID-19 TEST [facility] Today 01/27/2022 14:30 LAB PCR EDT COVID-19 TESTING Routine 01/27/2022 14:30 Results for this EDT procedure are i n the results section. from Last 3 Months Results PSA TOTAL, DIAGNOSTIC (02/20/2022 9:04 EDT) Pathologist Sig nature PSA 2.7 <=6.5 ng/mL [facility] Specimen Blood - Venous blood (substance) Narrative [facility] SERVICES - 02/20/2022 18:17 EDT NOTE: Serum PSA concentration should not be in terpreted as absolute evidence for the presence or absence of malignant disease. Assayed on Siemens ADVIA Centaur XPT usi ng chemiluminescent technology.??Values obtained by using different assay methods cannot be used interchangeably. Performing Organization Address City/State/ZIP Code Phon e Number [facility] [address] [place] [address] SERVICES COVID-19 TEST [facility] LAB PCR (01/27/2022 14:30 EDT) Specimen Swab Performing Organization Address City/[facility]/ZIP Code Phon e Number [facility] [address] [place] [address] SERVICES COVID-19 TESTING (01/27/2022 14:30 EDT) COVID-19 rt-PCR Negative Negative [facility] Result Comment: CENTER LABORATORY This test [...] performed using the meliton SARS-CoV-2 assay ([employer] on the Meliton 6800 System Performing Lab [place]iton [address]00 [facility] Lab [facility] SERVICES Specimen Swab Performing Organization Address City/[facility]/ZIP Code Phon e Number [facility] [address] [place] [address] SERVICES from Last 3 Months Care Teams Manufacturing Finance Manager Relationship Specialty Start Date End Date Lovely Vicente MD PCP - General 07/13/14
--- OUTSIDE RECORDS SUMMARY | 2022-02-23 09:03 | XMS_ITS | Encounter Summary ---
:1945 Author Organization [facility] Address [address] [place] [address] Care Team Providers Name Role Phone Lovely Vicente MD Primary Care Provider Encounter Details Date Type Department Care Team Description 01/28/2022 Lab Requisition [facility] Outr Resulting Lab, Pathology & Laboratory Provider [facility] [address] [place] [address] Social History Tobacco Use Types Packs/Day Years Used Date Never Assessed Sex Assigned at Date Recorded Not on file documented as of this encounter Plan of Treatment Not on filedocumented as of this encounter Procedures Procedure Name Priority Date/Time Associated Diagnosis Comme nts COVID-19 TEST [facility] Today 01/27/2022 14:30 LAB PCR EDT COVID-19 TESTING Routine 01/27/2022 14:30 Results for this EDT procedure are i n the results section. documented in this encounter Results COVID-19 TEST [facility] LAB PCR (01/27/2022 14:30 EDT) Specimen Swab Performing Organization Address City/State/ZIP Code Phon e Number [facility] [address] [place] [address] SERVICES COVID-19 TESTING (01/27/2022 14:30 EDT) COVID-19 [...] was performed using the meliton SARS-CoV-2 assay ([employer] on the Meliton 6800 System Performing Lab [place] [address] [facility] Lab [facility] SERVICES Specimen Swab Performing Organization Address City/State/ZIP Code Phon e Number [facility] [address] [place] [address] SERVICES documented in this encounter Visit Diagnoses Not on filedocumented in this encounter Care Teams Accounts Payable Coordinator Relationship Specialty Start Date End Date Lovely Vicente MD PCP - General 07/13/14 documented as of this encounter
--- OUTSIDE RECORDS SUMMARY | 2022-02-23 09:03 | XMS_ITS | Encounter Summary ---
:1945 Author Organization [facility] Address [address] [place] [address] Care Team Providers Name Role Phone Unavailable Primary Care Provider Unavailable Encounter Details Date Type Department Care Team Description 03/05/2014 Hospital Encounter [facility]- Heather Unknown, Provider, [facility] 0 [facility] [phone] [place] [address] (Work) [phone] Social History Tobacco Use Types Packs/Day Years Used Date Never Assessed Sex Assigned at Date Recorded Not on file documented as of this encounter Discharge Disposition Disposition Code Departure Means Destination Home or Self [facility] documented in this encounter Plan of Treatment Not on filedocumented as of this encounter Visit Diagnoses Not on filedocumented in this encounter
--- OUTSIDE RECORDS SUMMARY | 2022-02-23 09:03 | XMS_ITS ---
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 Problem Critical ischemia I99.8 Active of lower extremity Problem Atherosclerosis I70.90 Active 3871 6007 Problem Type 2 diabetes E11.628 Active mellitus with other skin complications Problem 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 40 ; Acquired deformi ty of right foot M21.961 ; L luis term current use of i nsulin Z79.4 ; History of art erial bypass of lower extremi ty Z95.828 ; Atherosclerosis I70.90 and History of Lisfr anc amputation of fo ot Z89.439 [facility] Feb, Type 2 diabet es mellitus [address] [place] with diabe tic neuropathy, [address] unspecified E11. 40 ; Acquired deformi ty of right foot M21.961 ; L luis term current use of i nsulin Z79.4 ; History of art erial bypass of lower extremi ty Z95.828 ; Atherosclerosis I70.90 and History of Lisfr anc amputation of fo ot Z89.439 [facility] November, [place] [address] [facility] [address] [facility] November, Type 2 [place] [address] with diabeti c neuropathy, unspecified E11. 40 ; Acquired deformi ty of right foot M21.961 ; L luis term current use of i nsulin Z79.4 ; History of art erial bypass of lower extremi ty Z95.828 ; Atherosclerosis I70.90 and History of Lisfr anc amputation of fo ot Z89.439 [facility] 8 [facility] 10 Aug, 2019 Type 2 [place] [address] with other skin complications E1 1.628 ; Tinea pedis of l eft foot B35.3 ; Type 2 d iabetes mellitus with di abetic neuropathy, unsp ecified E11.40 ; Acquire d deformity of right foot M2 1.961 ; custodial current use of insulin Z79.4 ; History of arterial bypass of lower extremity Z95.828 and Athe rosclerosis I70.90 [facility] Jun, [place] [address] [address] Jun, [place] [address] [address] Jun, Type 2 diabet es mellitus [place], [place] with other skin [address] complications E1 1.628 ; Acquired deformi ty of right foot M21.961 ; T ype 2 diabetes mellitu s with diabetic neuropa thy, unspecified E11. 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 40 ; custodial current use of insulin Z79.4 and Histor y of arterial bypass of lower extremity Z95.82 8 [facility] November, Tinea pedis o f left foot [place], [place] B35.3 ; Ty pe 2 diabetes [address] mellitus with ot her skin complications E1 1.628 ; Acquired deformi ty of right foot M21.961 ; T ype 2 diabetes mellitu s with diabetic neuropa thy, unspecified E11. 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 40 ; Acquired deformi ty of right foot M21.961 ; P eripheral arterial disease I73.9 ; History of arter ial bypass of lower extremi ty Z95.828 ; custodial curren t use of insulin Z79.4 an d History of Lisfranc amputat ion of foot Z89.439 UNKNOWN Jul, [facility] 11 Jun, 2018 Type 2 [place] [address] with diabeti c neuropathy, unspecified E11. 40 [facility] Apr, Edema of both legs R60.0 ; [place], [place] Acquired d eformity of right [address] foot M21.961 ; P eripheral arterial disease I73.9 ; History of arter ial bypass of lower extremi ty Z95.828 ; ferry terminal supervisor curren t use of insulin Z79.4 an d Type 2 diabetes mellitu s with diabetic neuropa thy, unspecified E11. [address] [facility] Mar, [place] [address] [address] Mar, Edema of both legs R60.0 ; [place] Acquired d eformity of right [address] foot M21.961 ; P eripheral arterial disease I73.9 ; History of arter ial bypass of lower extremi ty Z95.828 ; ferry terminal supervisor curren t use of insulin Z79.4 an d Type 2 diabetes mellitu s with diabetic neuropa thy, unspecified E11. 40 [facility] Feb, Edema of both legs R60.0 ; [place] [address] Ulcer of lef t calf, limited to breakdown of skin L97.221 ; Acquired defor mity of right foot M21.9 61 ; Peripheral arter ial disease I73.9 ; History of arterial bypass of lower extremity Z95.828 ; Long t erm current use of insulin Z 79.4 and Type 2 diabetes mellitus with diabetic ne uropathy, unspecified E11. 40 [facility] 1 Feb, [place] [facility] [place] [address] [facility] Feb, Edema of both legs R60.0 ; [place] [address] Ulcer of rig ht calf, limited to [...] uropathy, unspecified E11. 40 [facility] [address] [facility] Feb, [place] [address] [facility] [address] [facility] [address] Feb, [place] [address] [facility] [address] [facility] [address] Jan, [place] [address] [facility] [address] [facility] [address] Jan, [place] [address] [facility] [address] [facility] [place] Jan, [place] [address] [facility] [address] [facility] [place] Jan, [place] [address] [facility] [address] [facility] [place] [address] [facility] [address] [facility] [address] Dec, [place] [address] [facility] [address] [facility] [address] Dec, [place] [address] [facility] [address] [facility] [address] Dec, [place] [address] [facility] [address] [facility] [address] Dec, [place] [address] [facility] Dec, [place] [address] [facility] [address] [facility] [address] Dec, [place] [address] [facility] November, [place] [address] [facility] November, [place] [address] [facility] November, [place] [address] [facility] November, [place] [address] [facility] [address] [facility] [place] [address] [facility] November, [place] [address] UNKNOWN November, [facility] [address] November, OFFICE [place] [address] [facility] November, [place] [address] [facility] Oct, [place] [address] [facility] Oct, [place] [address] [facility] Oct, [place] [address] [facility] [facility] [address] 18 Oct, 2017 [place] [address] [facility] 16 Oct, 2017 [place] [address] [facility] [facility] [place] 16 Oct, 2017 [facility] [address] [facility] Oct, [place] [address] [facility] [address] [facility] Oct, [place] [address] [facility] [address] [facility] Oct, [place] [address] [facility] [address] Sep, [facility] [address] [facility] Sep, [place] [address] [facility] [address] Sep, [place] [address] [facility] [facility] [place] Sep, [place] [address] [facility] [address] [place] Sep, [place] [address] [facility] [address] [place] Sep, Critical ischemi a of lower [place] [address] extremity I 99.8 ; Local infection of the skin and subcutaneous tis lindsey, unspecified L08. 9 and Type 2 diabetes mellitu s with other skin complicatio ns E11.628 [facility] [address] [facility] Sep, [place] [address] [facility] [address] [facility] [address] Sep, [place] [address] [facility] [address] [facility] [address] Sep, [place] [address] [facility] [address] [facility] [address] 14 Sep, [address] [place] [address] [facility] Sep, [place] [address] [facility] Sep, [place] [address] [facility] [address] [facility] [place], [place] [address] [facility] [address] [facility] Sep, [place] [address] [facility] [address] [facility] [address] Aug, [place] [address] [facility] [address] [place] Aug, [facility] [address] [facility] 8 [place] Aug, [place] [address] SURGERY [address] [facility] Aug, [place] [address] SURGERY [address] [facility] Aug, [place] [address] [facility] [address] [facility] Aug, [place] [address] ORTHOPEDIC OFFICE [address] [facility] Aug, Pre-op exam Z01.818 [place] [address] [facility] Aug, [place] [address] [facility] Aug, [place] [address] [facility] Aug, [place] [address] IMMUNIZATIONS No Known Immunizations SOCIAL HISTORY Qualifiers [...] subcutaneously 22 24h Active units/mL daily Pen Power Active Ciclopirox Externally Twice 1 application 12h [...] For Report MR Lower Ext R w/o ([id number]) 2017-09-16 See Below For Report CR C-ARM MINI 2017-09-16 See Below For Report PT/INR 2017-09-14 PT 13.2 9.3-11.4 INR 1.3 [...] A1c 03/04/18 - 6.7, [facility],[place] annually, f/u - bilateral leg edema, Pt [...] at wound center,lab work done 03/07/2018 @ [facility], Patient came in with tubigrip bilateral , wound clin est, wound clinest, Wound CTR-follow up, Wound CTR-follow up, Wound CTR-follow up, Peer to Peer w/ Dr. Espino, Wound CTR-follow up, Wound CTR-follow up, Major Account Representative Documentation, LAB, Wound CTR-follow up, Wound CTR-follow up, Wound CTR-follow up, Wound CTR-follow up, LAB, LAB, Wound CTR- follow up, Wound CTR-follow up, Wound CTR-follow up, Major Account Representative Documentation, [facility], Wound CTR-follow up, Wound CTR-follow up, Pull PICC Line, Wound CTR-follow up, Wound CTR-follow up, LAB, Still taking doxycycline 100mg? , Wound CTR-follow up, Wound CTR-follow up, Wound CTR-follow up, Major Account Representative Documentation, Wound CTR-follow up, Wound CTR-follow up, Call back, Major Account Representative Documentation, Major Account Representative Documentation, Major Account Representative Documentation, Wound CTR-follow up, WCC, Wound CTR-follow up, Wound CTR-follow up, labs, D/C planning, bailey smetatarsal amputation of right foot, LAB, LAB, Wound CTR-NEW Insurance Providers [facility]ly [facility] Health Member Patient Patient Patient Patient Patient Subscriber Subscriber Subscriber Group Insurance Plan Plan Plan Plan ID Relationship Address Phone Name Date of ID Name Date of No Type Insurance Insurance Insurance Coverage to Subscriber Address Phone Name Dates S-BLUE [phone] S-BLUE [place] [id number] [address] [place] [address] [place] 3000 GOFF[place] MEDICARE self GREGORY [id number] 1 [id number] [facility] [id number] SELF PAY [address] STREET SELF PAY self [place] [id number] AFTER BLUE [place] AFTER BLUE [facility] [id number] [address] [place] [phone] OTHER [place]REG[place] [id number] [place] 1^MAIN [place] [facility] PAYOR [id number]
--- OUTSIDE RECORDS SUMMARY | 2022-02-23 09:03 | XMS_ITS | Encounter Summary ---
:1945 Author Organization [facility] Address [address] [place] [address] Care Team Providers Name Role Phone Lovely Vicente MD Primary Care Provider Encounter Details Date Type Department Care Team Description 02/20/2022 Lab Requisition [facility] Outr Resulting Lab, Pathology & Laboratory Provider [facility] [address] [place] [address] Social History Tobacco Use Types Packs/Day Years [...] in this encounter Results PSA TOTAL, DIAGNOSTIC (02/20/2022 9:04 EDT) Pathologist Sig nature PSA 2.7 <=6.5 ng/mL [facility] Specimen Blood - Venous blood (substance) Narrative [facility] - 02/20/2022 18:17 EDT NOTE: Serum PSA concentration should not be in terpreted as absolute evidence for the presence or absence of malignant disease. Assayed on Siemens [employer] Centaur XPT usi ng chemiluminescent technology.??Values obtained by using different assay methods cannot be used interchangeably. Performing Organization Address City/State/ZIP Code Phon e Number [facility] [address] [place] [address] SERVICES documented in this encounter Visit Diagnoses Not on filedocumented in this encounter Care Teams Playroom Attendant Relationship Specialty Start Date End Date Lovely Vicente MD PCP - General 07/13/14 documented as of this encounter
--- OUTSIDE RECORDS SUMMARY | 2022-02-23 09:03 | XMS_ITS | Encounter Summary ---
:1945 Author Organization [facility] Address [address] [place] [address] Care Team Providers Name Role Phone Lovely Vicente MD Primary Care Provider Encounter Details Date Type Department Care Team Description 01/01/2020 Lab Requisition [facility] Outr Resulting Lab, Pathology & Laboratory Provider [facility] [address] [place] [address] Social History Tobacco Use Types Packs/Day Years [...] nature PSA 2.1 0.0 - 6.5 ng/mL [facility] Specimen Blood - Venous blood (substance) Narrative [facility] - 01/02/2020 10:40 EDT NOTE: Serum PSA concentration should not be in terpreted as absolute evidence for the presence or absence of malignant disease. Assayed on Siemens ADVIA Centaur XPT usi ng chemiluminescent technology.??Values obtained by using different assay methods cannot be used interchangeably. Performing Organization Address City/State/ZIP Code Phon e Number [facility] [address] [place] [address] SERVICES documented in this encounter Visit Diagnoses Not on filedocumented in this encounter Care Teams Floor Supervisor Relationship Specialty Start Date End Date Lovely Vicente MD PCP - General 07/13/14 documented as of this encounter
--- OUTSIDE RECORDS SUMMARY | 2022-02-23 09:03 | XMS_ITS | Encounter Summary ---
:1945 Author Organization [facility] Address [address] [place] [address] Care Team Providers Name Role Phone Unknown, Provider Primary Care Provider Encounter Details Date Type Department Care Team Description 03/05/2014 Results Only [facility] Eris Taylor MD Laboratory Services - [address] [place] [address] [place] [address] [phone] Social History Tobacco Use Types Packs/Day Years Used Date Never Assessed Sex Assigned at Date Recorded Not on file documented as of this encounter Plan of Treatment Not on filedocumented as of this encounter Procedures Procedure Name Priority Date/Time Associated Diagnosis [facility] SURGICAL PATHOLOGY Routine 03/05/2014 10:34 Resul [...] ? DON HOANG ? Accession #: ? [id number] ? : ? 1945 (Age: 68) ??M [...] Organization Address City/State/ZIP Code Phon e Number [facility] [address] [place] [address] SERVICES [facility] [address] [place] [address] documented in this encounter Visit Diagnoses Not on filedocumented in this encounter Care Teams Binder Operator Relationship Specialty Start Date End Date Unknown, Provider, PCP - General 03/07/14 07/12/14 documented as of this encounter
--- OUTSIDE RECORDS SUMMARY | 2022-02-23 09:03 | XMS_ITS | Encounter Summary ---
:1945 Author Organization [facility] Address [address] [place] [address] Care Team Providers Name Role Phone Lovely Vicente MD Primary Care Provider Encounter Details Date Type Department Care Team Description 08/11/2019 Lab Requisition [facility] Unknown, Provider, Pathology & Laboratory [facility] [address] [facility] [place] [address] Social History Tobacco Use Types Packs/Day Years [...] (08/11/2019 14:35 EST) Giardia and Cryptosporidium Cryptosporidium [facility] Cryptosporidium Antigen Neg and Antigen Neg and CENTER Giardia Antigen Neg Giardia Antigen Neg LABORATORY SERVICES Specimen Feces - Specimen from rectum (specimen) Performing Organization Address City/State/ZIP Code Phon e Number [facility] [address] [place] [address] SERVICES documented in this encounter Visit Diagnoses Not on filedocumented in this encounter Care Teams Technical Sales Advisor Relationship Specialty Start Date End Date Lovely Vicente MD PCP - General 07/13/14 documented as of this encounter
--- OUTSIDE RECORDS SUMMARY | 2022-02-23 09:03 | XMS_ITS | Encounter Summary ---
:[address] [facility] Address [address] [place] [address] Care Team Providers Name Role Phone Lovely Vicente MD Primary Care Provider Encounter Details Date Type Department Care Team Description 01/17/2021 Lab Requisition [facility] Outr Resulting Lab, Pathology & Laboratory Provider [facility] [address] [place] [address] Social History Tobacco Use Types Packs/Day Years [...] nature PSA 2.9 0.0 - 6.5 ng/mL [facility] SERVICES Specimen Blood - Venous blood (substance) Narrative [facility] - 01/17/2021 17:46 EDT NOTE: Serum PSA concentration should not be in terpreted as absolute evidence for the presence or absence of malignant disease. Assayed on Siemens ADVIA Centaur XPT usi ng chemiluminescent technology.??Values obtained by using different assay methods cannot be used interchangeably. Performing Organization Address City/State/ZIP Code Phon e Number [facility] [address] [place] [address] SERVICES documented in this encounter Visit Diagnoses Not on filedocumented in this encounter Care Teams Geothermal Installer Relationship Specialty Start Date End Date Lovely Vicente MD PCP - General 07/13/14 documented as of this encounter
--- OUTSIDE RECORDS SUMMARY | 2022-02-25 08:09 | XMS_ITS | Encounter Summary ---
:1945 Author Organization [facility] [place] [address] Care Team Providers Name Role Phone Lovely Vicente MD Primary Care Provider Encounter Details Date Type Department Care Team Description 12/25/2021 Laboratory Appointment Lab 3L [facility] systolic [facility] heart [place] [id number] Social History Tobacco Use Types Packs/Day Years [...] Vitaliy Nobles MD [facility] [address] [place], [place] [address] (Wo rk) 06/10/2022 Office Visit Dermatology Laura Scherer MD [facility] DR TE[address] GR[address]DERMAT [place], [place] [address] (Wo rk) documented as [...] (ABNORMAL) Differential, Automated (12/25/2021 7:46 AM EDT) [facility] Method Time Signature Neutrophils % 82.6 % [facility] Neutr Abs (ANC) 9.37 (H) 1.70 - [facility] 6.10 [facility] x10(3)/[facility] L LABORATORY Lymphocytes % 7.1 % [facility] Lymphocytes Abs 0.8 (L) 0.9 - 3.2 [facility] x10(3)/[facility] LABORATORY Monocytes % 8.8 % [facility] Monocyte Abs 1.0 (H) 0.3 - 0.9 [facility] x10(3)/[facility] LABORATORY Eosinophils % 0.4 % [facility] Eosinophils Abs 0.0 0.0 - 0.4 [facility] x10(3)/[facility] LABORATORY Basophils % 0.4 % [facility] Basophils Abs 0.0 0.0 - 0.1 [facility] x10(3)/[facility] LABORATORY Immature Gran % 0.70 % [facility] Comment: Immature granulocytes(IG's)percentage an d absolute count will include metamyelocytes, myelocytes, and promyelo cytes. Blood smears from CBCs yielding IG's will be scanned manually for concor dance. If this scan disagrees with the automated IG or if promyelocytes are not ed, a manual differential will be performed. Melisa Gran Abs 0.08 (H) 0.00 - 0.04 x10(3)/[facility] LABORATORY Specimen Anatomical Collection Method Collection Time Receive d Time (Source) Location / / Volume Laterality Blood 12/25/2021 7:46 AM 2 8:01 EDT AM EDT Resulting Agency Comment Spec In Lab Liz BROWN HEMATOLOGY ORDERABLES Performing Organization Address City/State/[place] [address] (ABNORMAL) Hemogram (12/25/2021 7:46 AM EDT) Analysis Performed At Patho logist Time Signature WBC 11.4 (H) 4.0 - 9.5 [facility] x10(3)/[facility] LABORATORY RBC 4.23 (L) 4.58 - [facility] x10(6)/[facility] LABORATORY Hemoglobin 12.3 (L) 13.7 - [facility] 16.5 g/dL [facility] Hematocrit 37.7 (L) 40.5 - [facility] 48.5 % [facility] MCV 89.1 82.9 - [facility] 93.1 [facility] LABORATORY MCH 29.1 27.5 - [facility] 32.1 pg [facility] MCHC 32.6 32.0 - [facility] 35.7 g/dL [facility] Platelets 215 145 - 357 [facility] x10(3)/[facility] LABORATORY RDWSD 49.8 (H) 36.0 - [facility] RYAN 45.0 [facility] LABORATORY RDWCV 15.2 (H) 11.4 - [facility] RYAN 13.8 % [facility] LABORATORY MPV 9.2 7.6 - 12.9 [facility] LABORATORY nRBC % Auto 0.0 % [facility] LABOR[facility]ORY nRBC Abs Auto 0.000 0.000 - [facility] 0.000 [facility] x10(3)/[facility] LABORATORY Specimen Anatomical Collection Method Collection Time Receive d Time (Source) Location / / Volume Laterality Blood 12/25/2021 7:46 AM 2 8:01 EDT AM EDT Resulting Agency Comment Spec In Lab Liz BROWN HEMATOLOGY ORDERABLES Performing Organization Address City/State/[place] [address] (ABNORMAL) Basic Metabolic Panel (non-fasting) (12/25/2021 7:46 AM EDT) P athologist Signature Glucose Lvl 272 (H) 65 - 199 [facility] mg/dL [facility] Comment: Diabetes: >=200 mg/dL plus symp toms BUN 62 (H) 10 - 20 mg/dL [facility] Creatinine 1.81 (H) 0.80 - [...] Chloride 95 (L) 98 - 107 mmol/L [facility] CO2 28 22 - 31 mmol/L [facility] Anion Gap 11 5 - 15 mmol/L [facility] Calcium 9.4 8.5 - 10.5 mg/dL [facility] LABORATORY Estimated GFR 36 (L) >=60 mL/min/1.73 m?? [facility] [...] Organization Address City/State/[place] [address] (ABNORMAL) pro-Brain Natriuretic Peptide (12/25/2021 7:46 AM EDT) P athologist Signature ProBNP 1,380 (H) <=124 KATALINA DAVIS pg/mL [facility] Specimen Anatomical Collection Method Collection Time Receive d Time (Source) Location / / Volume Laterality Blood 12/25/2021 7:46 AM 2 8:01 EDT AM EDT Resulting Agency Comment Spec In Lab Zulma Plunkett MD CHEMISTRY ORDERABLES Performing Organization Address City/State/[place] [address] documented in this encounter Visit Diagnoses Diagnosis Chronic systolic heart failure documented in this encounter Care Teams Student Career Development Specialist Relationship Specialty Start Date End Date Lovely Vicente MD PCP - General 04/16/[address] [place] [address] documented as of this encounter
--- OUTSIDE RECORDS SUMMARY | 2022-02-25 08:09 | XMS_ITS | Encounter Summary ---
:1945 Author Organization [facility] [place] [address] Care Team Providers Name Role Phone Lovely Vicente MD Primary Care Provider Encounter Details Date Type Department Care Team Description 12/24/2021 Telephone Public Health at [facility] [place] [address] Social History Tobacco Use Types Packs/Day [...] Vitaliy Nobles MD [facility] [address] [place], [place] [address] (Wo rk) 06/10/2022 Office Visit Dermatology Laura Scherer MD [facility] [address] TE[address]DERMAT [place], [place] [address] (Wo rk) documented as of this encounter Visit Diagnoses Not on filedocumented in this encounter Care Teams Platform Operations Director Relationship Specialty Start Date End Date Lovely Vicente MD PCP - General 04/16/[address] [place] [address] documented as of this encounter
--- OUTSIDE RECORDS SUMMARY | 2022-02-25 08:09 | XMS_ITS | Encounter Summary ---
:1945 Author Organization [facility] [place] [address] Care Team Providers Name Role Phone Lovely Vicente MD Primary Care Provider Reason for Visit Auth/Cert Specialty Diagnoses / Procedures Referred By Contact Refer red To Contact Diagnoses ASCVD (arteriosclerotic cardiovascular disease) [I25.10] Vitaliy Nobles MD [facility] Procedures PRO PERC TRLUML CORONARY STENT W/ANGIO ONE ART/BRANCH CARDIAC CATHETERIZATION STENT PLACEMENT-SINGLE MAJOR CORONARY ARTERY OR BRANCH [facility] [place] [address] Referral ID Status Reason Start Date Expiration Date Visits Requ ested Visits Authorized [id number] 1 1 Encounter Details Date Type Department Care Team Description 01/30/2022 Laboratory Lab 3L Katalina ASCVD (arterios clerotic Appointment [facility] cardiovas cular disease) [place] [address] Social History Tobacco Use Types Packs/Day Years [...] Nobles MD [facility] CARDIOLOGY [place], [place] [address] (Wo rk) 06/10/2022 Office Visit Dermatology Laura Scherer MD [facility] DR [address]-DERMAT [facility] [place], [place] [address] (Wo rk) documented as of [...] (ABNORMAL) Differential, Automated (01/30/2022 7:19 AM EDT) [facility] gist Method Time Signature Neutrophils % 77.9 % [facility] Neutr Abs (ANC) 5.31 1.70 - [facility] 6.10 [facility] x10(3)/[facility] LABORATORY Lymphocytes % 12.0 % [facility] Lymphocytes Abs 0.8 (L) 0.9 - 3.2 [facility] x10(3)/[facility] LABORATORY Monocytes % 8.1 % [facility] Monocyte Abs 0.6 0.3 - 0.9 [facility] x10(3)/[facility] LABORATORY Eosinophils % 0.4 % [facility] Eosinophils Abs 0.0 0.0 - 0.4 [facility] x10(3)/[facility] LABORATORY Basophils % 0.6 % [facility] Basophils Abs 0.0 0.0 - 0.1 [facility] x10(3)/[facility] LABORATORY Immature Gran % 1.00 % [...] Abs 0.07 (H) 0.00 - 0.04 x10(3)/[facility] LABORATORY Specimen Anatomical Collection Method Collection Time Receive d Time (Source) Location / / Volume Laterality Blood 01/30/2022 7:19 AM 7:21 EDT AM EDT Resulting Agency Comment Spec In Lab Zulma BROWN HEMATOLOGY ORDERABLES Performing Organization Address City/State/ZIP Code Phon e Number [place] [phone] HOSP[address] LAB[address]ATORY Drive (ABNORMAL) Hemogram (01/30/2022 7:19 AM EDT) Analysis Performed At Patho logist Time Signature WBC 6.8 4.0 - 9.5 [facility] x10(3)/[facility] LABORATORY RBC 4.32 (L) 4.58 - [facility] RYAN 5.54 [facility] x10(6)/[facility] LABORATORY Hemoglobin 13.0 (L) 13.7 - [facility] 16.[facility] g/dL [facility] Hematocrit 39.8 (L) 40.5 - [facility] RYAN 48.5 % [facility] MCV 92.1 82.9 - [facility] RYAN 93.[address] [facility] LABORATORY MCH 30.1 27.5 - [place] RYAN 32.1 pg [facility] MCHC 32.7 32.0 - [facility] 35.7 g/dL [facility] Platelets 172 145 - 357 [facility] x10(3)/[facility] LABORATORY RDWSD 54.5 (H) 36.0 - [place] RYAN 45.[address] [facility] LABORATORY RDWCV 16.2 (H) 11.4 - [facility] R[facility]AN 13.8 % [facility] LABOR[facility] MPV 9.0 7.6 - 12.9 [facility] LABORATORY nRBC % Auto 0.0 % [facility]OR[facility] nRBC Abs Auto 0.000 0.000 - [facility] 0.000 [facility] x10(3)/[facility] LABORATORY Specimen Anatomical Collection Method Collection Time Receive d Time (Source) Location / / Volume Laterality Blood 01/30/2022 7:19 AM 7:21 EDT AM EDT Resulting Agency Comment Spec In Lab Zulma BROWN HEMATOLOGY ORDERABLES Performing Organization Address City/State/[place] [address] (ABNORMAL) Basic Metabolic Panel (non-fasting) (01/30/2022 7:19 AM EDT) P athologist Signature Glucose Lvl 237 (H) 65 - 199 [facility] mg/dL [facility] Comment: Diabetes: >=200 mg/dL plus symp toms BUN 34 (H) 10 - 20 mg/dL [facility] LABORATORY Creatinine 1.45 0.80 - 1.50 mg/dL [facility] [...] [facility] LABORATORY Calcium 9.5 8.5 - 10.5 mg/dL [facility] LABOR[facility]ORY Estimated GFR 50 (L) >=60 [...] Organization Address City/State/ZIP Code Phon e Number [place] [phone]OS[address] LAB[address] documented in this encounter Visit Diagnoses Diagnosis ASCVD (arteriosclerotic cardiovascular d isease) Unspecified cardiovascular disease documented in this encounter Care Teams Financial Planning Adviser Relationship Specialty Start Date End Date Lovely Vicente MD PCP - General 04/16/[address] [place] [address] documented as of this encounter
--- OUTSIDE RECORDS SUMMARY | 2022-02-25 08:09 | XMS_ITS | Encounter Summary ---
:1945 Author Organization [facility] [place] [address] Care Team Providers Name Role Phone Lovely Vicente MD Primary Care Provider Reason for Visit Reason Onset Date Comments Medication Refill 12/12/2021 Torsemide Encounter Details Date Type Department Care Team Description 12/12/[address] [facility] Janneth Padilla, Medication Refill [facility] STEPHANIE (Torsemide) [place] [address] CARDIOLOGY DEPT. [place], [place] [address] (Wo rk) Social History Tobacco [...] [facility] [address] T[address] [place], [place] [address] (Wo rk) 06/10/2022 Office Visit Dermatology Laura Scherer MD [facility] [address] [place], [place] [address] (Wo rk) documented as of this encounter Visit Diagnoses Diagnosis Chronic systolic heart failure documented in this encounter Care Teams Hospice Music Therapist Relationship Specialty Start Date End Date Lovely Vicente MD PCP - General 04/16/[address] [place] [address] documented as of this encounter
--- OUTSIDE RECORDS SUMMARY | 2022-02-25 08:09 | XMS_ITS | Encounter Summary ---
:1945 [place] [address] Care Team Providers Name Role Phone Lovely Vicente MD Primary Care Provider Encounter Details Date Type Department Care Team Description 12/30/2021 Notes Only Cardiac Rehab [facility] [place] Linnea Deluca, [facility] [place] [address] Social History Tobacco Use Types Packs/Day [...] team. DX: HFrEF. Referral placed to [facility] documented in this encounter Plan of Treatment Upcoming Encounters Date Type Specialty Care Team Description 03/26/2022 Office Visit Cardiology Vitaliy Nobles MD [facility] ER [address] [place], [place] [address] (Wo rk) 06/10/2022 Office Visit Dermatology Laura Scherer MD [facility] DR TE[address] GR[address]MAT [place], [place] [address] (Wo rk) documented as of this encounter Visit Diagnoses Not on filedocumented in this encounter Care Teams Analyst Competitive Intelligence Relationship Specialty Start Date End Date Lovely Vicente MD PCP - General 04/16/15 [facility] [address] [place] [address] documented as of this encounter
--- OUTSIDE RECORDS SUMMARY | 2022-02-25 08:09 | XMS_ITS | Encounter Summary ---
:1945 [place] [address] Care Team Providers Name Role Phone Lovely Vicente MD Primary Care Provider Encounter Details Date Type Department Care Team Description 12/25/2021 Office Visit Cardiology at [facility] Liz Poole, Chronic systolic heart [facility] [place] [address] Cardiology Dept [phone] [place], [place] [address] Social History Tobacco Use Types [...] As per DC Summary - Admitted to [facility] on 12/08/21, transferred from [facility], respiratory distress with hypoxia 86% [...] mg PO daily in place of Lasix. [place] is new for him and he will [...] ?1,008 ?TPR ?608 ?PVR ?176 ?Technique ?Estimated Brittaine ?Left Heart Pressures ?Resting: ?Syst Diast ?EDP [...] Antiplatelet (DAPT) Recommendations above ? TTE from [facility] 12/08/21 ?? 07/28/2019 Echocardiogram: SUMMARY: [...] regurgitation present. 07/07/2019 - 07/21/2019 Zio Patch Vegetable Vendor The patient had a minimum heart rate [...] hyperkalemia 4.9 today 6. Post-op atrial fibrillation [id number] (CHF, HTN, DM, vascular disease, thromboembolism) Eliquis 7. PAD 08/06/2017: Right 1st, 2nd, 3rd toe amputation 08/11/2017: Left??femoral arterial access, RLE??angiogram, Balloon angioplasty of R PT 10/25/2017: right popliteal-pedal bypass at [facility] 8. Hypothyrodism S/p thyroidectomy for goiter Levothyroxine ?? Plan: 1 month follow up with labs Liz Poole PA-C 12/25/2021 documented in this encounter Plan of Treatment Upcoming Encounters Date Type Specialty Care Team Description 03/26/2022 Office Visit Cardiology Vitaliy Nobles MD [facility] CARDIOLOGY [place], [place] [address] (Wo rk) 06/10/2022 Office Visit Dermatology Laura Scherer MD [facility] ER DR TEJA GR-DERMAT [place], [place] [address] (Wo rk) documented as of this encounter Results (ABNORMAL) pro-Brain Natriuretic Peptide (12/25/2021 7:46 AM EDT) athologist Signature ProBNP 1,380 (H) <=[address] [facility] pg[facility]mL [facility] Specimen Anatomical Collection Method Collection Time Receive d Time (Source) Location / / Volume Laterality Blood 12/25/2021 7:46 AM 8:01 EDT AM EDT Resulting Agency Comment Spec In Lab Zulma Plunkett MD CHEMISTRY ORDERABLES Performing Organization Address City/State/[place] [address] (ABNORMAL) Basic Metabolic Panel (non-fasting) (12/25/2021 7:46 AM EDT) athologist Signature Glucose Lvl 272 (H) 65 - 199 [facility] mg/dL [facility] Comment: Diabetes: >=200 mg/dL plus symp toms BUN 62 (H) 10 - 20 mg/dL [facility] Creatinine 1.81 (H) 0.80 - 1.50 mg/dL [facility] Sodium 134 (L) 135 - [...] Chloride 95 (L) 98 - 107 mmol/L [facility] CO2 28 22 - 31 mmol/L [facility] Anion Gap 11 5 - 15 mmol/L [facility] Calcium 9.4 8.5 - 10.5 mg/dL [facility] Estimated GFR 36 (L) >=60 mL/min/1.73 m?? [facility] [...] Organization Address City/State/[place] [address] documented in this encounter Visit Diagnoses Diagnosis Chronic systolic heart failure documented in this encounter Care Teams Powderer Relationship Specialty Start Date End Date Lovely Vicente MD PCP - General 04/16/[address] [place] [address] documented as of this encounter
--- OUTSIDE RECORDS SUMMARY | 2022-02-25 08:09 | XMS_ITS | Encounter Summary ---
:1945 [address] [facility] [place] [address] Care Team Providers Name Role Phone Lovely Vicente MD Primary Care Provider Encounter Details Date Type Department Care Team Description 12/15/2021 Telephone Cardiology at [facility] [place], [place] [phone] Social History Tobacco Use Types Packs/Day [...] Cardiology Vitaliy Nobles MD [facility] [address] [place], [place] [address] (Wo rk) 06/10/2022 Office Visit Dermatology Laura Scherer MD [facility] [address] [facility] [place], [place] [address] (Wo rk) documented as of this encounter Visit Diagnoses Not on filedocumented in this encounter Care Teams Professor Of Music Relationship Specialty Start Date End Date Lovely Vicente MD PCP - General 04/16/[address] [place] [address] documented as of this encounter
--- OUTSIDE RECORDS SUMMARY | 2022-02-25 08:09 | XMS_ITS | Clinical Summary ---
:1945 Author Organization [facility] [place] [address] Care Team Providers Name Role Phone Lovely [...] tablet by mouth 2 60 tablet 11 07/2021 Active (Entresto) 24-26 mg Tablet times daily. [...] Encounters Date Type Specialty Care Team Description 02/24/2022 Notes Only Care Management Morgan Wood 02/24/2022 Orders Only Cardiology Virgilio Chronic systoli c heart Liz PA failure 02/23/2022 Telephone Cardiology Martha Comer, Follow-up (M manjeetication RN adjustment and new med) 02/23/2022 Refill Cardiology Liz Poole PA 02/20/2022 Specialty Pharmacy Pharmacy Lamberto Smith (Entresto 24-26 mg tablets) 02/19/2022 Office Visit Cardiology Virgilio Chronic systoli c heart Liz PA failure 02/19/2022 Laboratory Lab Chronic systoli c heart Appointment failure 01/30/2022 Surgery Cardiology Vitaliy Nobles, CARDIAC MD CATHETERIZATION 01/30/2022 Laboratory Lab ASCVD Appointment (arteriosclerot ic cardiovascular disease) 01/30/2022 Hospital Encounter Vitaliy Nobles ASCVD (a rteriosclerotic cardiovascular disease); 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; ASHD (arteriosc lerotic heart disease) 01/28/2022 Orders Only Cardiology JEMIMA Gannon PA (arteriosclerot ic cardiovascular disease) 01/28/2022 Telephone Cardiology Chitra Angela Advice Rome Gomes RN 12/30/2021 Notes Only Cardiology Rebeka Deluca RN 12/25/2021 Office Visit Cardiology Virgilio Chronic systoli c heart STEPHANIE Hill failure 12/25/2021 Laboratory Lab Chronic systoli c heart Appointment failure 12/24/2021 Telephone [facility] Dayami Buckner 12/24/2021 Orders Only Cardiology JEMIMA Gannon PA (arteriosclerot ic cardiovascular disease) 12/15/2021 Telephone Cardiology Barbara Mera RN 12/12/2021 Refill Cardiology Janneth Padilla Medication R efhortensia HSTEPHANIE (Torsemide) 12/12/2021 Telephone Cardiology Barbara Mera RN [...] MEDICAL [facility] ER CARDIOLOGY [place], [place] [address] (Wo rk) 06/10/2022 Office Visit Dermatology Laura Scherer MD [facility] ER DR [place] [place], [place] [address] (Wo rk) Health Maintenance Due Date Last Done Comments Covid-19 Vaccine (#1) 1950 Pneumoccocal Vaccine: 65+ (1 - PCV) 1952 Hepatitis C Screening 1964 Tdap adult 1965 Tetanus vaccine 1965 Zoster vaccine (1 of 2) 1996 AAA Screen 2011 Colonoscopy 01/16/2019 01/16/2014, 01/16/2014 Influenza (Flu) vaccine (1 of 1 - 03/26/2022 03/29/2013, Influenza standard series) Medical Devices Implanted Type Area Set Up Mechanic Stamping Machines Device Shelf Model / Identifier Expiration Serial / Date Lot Cable,Cut,Edg,Blnt,Ss,3tpr ([id number]) - [id number] IMPLANTS Midline: [employer] 04/01/2022 [id number] / Implanted: Qty: 4 on 07/07/2017 by Yuan Retana MD at [facility] [employer] - / [id number] Procedures Procedure Name Priority Date/Time Associated Diagnosis [...] Time Signature WBC 7.2 4.0 - 9.[address] x10(3)/[facility] LABORATORY RBC 4.41 (L) 4.58 - [facility] SU 5.54 [facility] x10(6)/[facility] LABORATORY Hemoglobin 13.2 (L) 13.7 - [facility] SU 16.5 g/dL [facility] LABORATORY Hematocrit 40.9 40.5 - [facility] 48.5 % [facility] LABORATORY MCV 92.7 82.9 - [facility] 93.1 fL [facility] LABORATORY MCH 29.9 27.5 - [facility] 32.1 pg [facility] LABORATORY MCHC 32.3 32.0 - [facility] 35.7 g/dL [facility] LABORATORY Platelets 191 145 - 357 [facility] x10(3)/[facility] LABORATORY RDWSD 53.6 (H) 36.0 - [facility] 45.0 [facility] LABORATORY RDWCV 15.6 (H) 11.4 - [facility] 13.8 % [facility] LABORATORY MPV 8.7 7.6 - 12.9 [facility] LABORATORY nRBC % Auto 0.0 % [facility] LABORATORY nRBC Abs Auto 0.000 0.000 - [facility] 0.000 [facility] x10(3)/[facility] LABORATORY Specimen Anatomical Collection Method Collection Time Receive d Time (Source) Location / / Volume Laterality Blood 02/19/2022 8:06 AM 8:09 EDT AM EDT Resulting Agency Comment Spec In Lab Liz BROWN HEMATOLOGY ORDERABLES Performing Organization Address City/State/ZIP [place] [address] (ABNORMAL) Differential, Automated (02/19/2022 8:06 AM EDT)Only the most recent of9 resultswithin the time period is included. [facility] gist Method Time Signature Neutrophils % 76.0 % [facility] LABORATORY Neutr Abs (ANC) 5.49 1.70 - [facility] 6.10 [facility] x10(3)/[facility] LABORATORY Lymphocytes % 10.8 % [facility] LABORATORY Lymphocytes Abs 0.8 (L) 0.9 - 3.2 [facility] x10(3)/[facility] LABORATORY Monocytes % 10.2 % [facility] LABORATORY Monocyte Abs 0.7 0.3 - 0.9 [facility] x10(3)/[facility] LABORATORY Eosinophils % 1.2 % [facility] LABORATORY Eosinophils Abs 0.1 0.0 - 0.4 [facility] x10(3)/[facility] LABORATORY Basophils % 0.8 % [facility] LABORATORY Basophils Abs 0.1 0.0 - 0.1 [facility] x10(3)/[facility] LABORATORY Immature Gran % 1.00 % [facility] LABORATORY Comment: Immature granulocytes(IG's)percentage an d absolute count will include metamyelocytes, myelocytes, and promyelo cytes. Blood smears from CBCs yielding IG's will be scanned manually for concor dance. If this scan disagrees with the automated IG or if promyelocytes are not ed, a manual differential will be performed. Melisa Gran Abs 0.07 (H) 0.00 - 0.04 x10(3)/mcL [facility] LABORATORY Specimen Anatomical Collection Method Collection Time Receive d Time (Source) Location / / Volume Laterality Blood 02/19/2022 8:06 AM 2 8:09 EDT AM EDT Resulting Agency Comment Spec In Lab Liz BROWN HEMATOLOGY ORDERABLES Performing Organization Address City/[facility]/ZIP [place] [address] (ABNORMAL) pro-Brain Natriuretic Peptide (02/19/2022 8:06 AM EDT)Only the most recent of2 resultswithin the time period is included. athologist Signature ProBNP 984 (H) <=449 pg/mL [facility] LABORATORY Specimen Anatomical Collection Method Collection Time Receive d Time (Source) Location / / Volume Laterality Blood 02/19/2022 8:06 AM 2 8:09 EDT AM EDT Resulting Agency Comment Spec In Lab Zulma Plunkett MD CHEMISTRY ORDERABLES Performing Organization Address City/[facility]/ZIP [place] [address] (ABNORMAL) Basic Metabolic Panel (non-fasting) (02/19/2022 8:06 AM EDT)Only the most recent of7 resultswithin the time period is included. athologist Signature Glucose Lvl 139 65 - 199 [facility] mg/dL [facility] LABORATORY Comment: Diabetes: >=200 mg/dL plus symp toms BUN 31 (H) 10 - 20 mg/dL [facility] LABORATORY Creatinine 1.53 (H) 0.80 - 1.50 mg/dL [facility] LABORATORY Sodium 142 135 - 145 mmol/L [facility] LABORATORY Potassium 5.4 (H) 3.5 - 5.0 mmol/L [facility] LABORATORY Comment: Please note: ??Patients with WBC >100,00 0 may have falsely elevated Potassium levels. ??For accurate Potassium quantif ication in these patients send serum separator tube (gold top) for subsequent determinations. ??Contact the Clinical Chemistry Laboratory if there are any qu estions. Chloride 100 98 - 107 mmol/L [facility] LABORATORY CO2 31 22 - 31 mmol/L [facility] LABORATORY Anion Gap 11 5 - 15 mmol/L [facility] LABORATORY Calcium 9.7 8.5 - 10.5 mg/dL [facility] LABORATORY [...] Organization Address City/State/ZIP [place] [address] POCT Glucose (01/30/2022 1:41 PM EDT)Only the most recent of36 resultswithin the time period is included. athologist Signature POC Glucose 148 65 - 199 [facility] mg/dL [facility] [...] Organization Address City/State/ZIP [place] [address] EKG 12 Lead (01/30/2022 [...] 435 ms MUSE SYSTEM (Bezet) Calculated P [place] 41 degrees MUSE SYSTEM Calculated R [place] -27 degrees MUSE SYSTEM Calculated T [place] 104 degrees MUSE SYSTEM INTERPRETATION Normal sinus rhythm MUSE SYSTEM Anterolateral infarct (cited on or before 09-DEC-2021) Abnormal ECG When compared with ECG of 10-DEC-2021 11:17, No significant change was found Confirmed by Gary Perez ([id number]) on 01/30/2022 5:57:5 2 PM Specimen Anatomical [...] SYSTEM - 01/30/2022 2:09 PM ED T ?[facility] ? Cardiac Cathete rization/Intervention Report ? Patient Name: Don Fatima. ? Procedure Date: 01/30/2022 ? A #: [id number] ? Primary Physician: Nobles, Vitaliy P ? Case #: [id number] ? File Name: [id number] ? Catheterization Order Number: [id number] ? [facility] ? Final Report [place], [place] ? Patient Name: ? Don E. Stewa rt ? ID#: ?[id number] ? : ?1945 ? Procedure Date: ? [...] was Urgent. The indication for ?the clinical lab clerk visit is stable kn own CAD. Chest pain symptom assessment ?was: Typical Angina. ? Technique: ?A 6 SLFr sheath was inserted in the right radial artery utilizing the ?Seldinger technique. The right coronary artery was injected utilizing a ?IR 2.0 catheter. Coronary stent insertion was performed and the equipment ?utilized will be described in city emergency hospital intervention summary section. 9,000 ?units of heparin [...] guiding catheter an d a 3.[address] ??20 Mhz ?using Manual pullback. ??Imagin [...] A premounted 2.00 x 26 mm Hard[place]ep [place] (TUCKER) ? was deployed wi th a [...] Wedelivered along 2.0 x 26 mm HARDEEP [place] ? TUCKER stent and p ositioned it at the ostium of the RPDA ? extending into the mid RPDA and deployed it at 12 darshan. We then ? usedellis em to post-dilate the stent to 20atm ? pressure. We us ed an additional 3.25 x 15 mm NC balloon to 24 ? darsahn to post-dil ate the proximal part of [...] administered prior to arrival in the clinical lab clerk. ?Recommended anti-platelet/anti- thrombotic regimen: ?Continue aspirin 81 [...] may require ?modification of this regimen. [facility] Interventional Cardiology for [...] using a 2.0 x 26 mm HARDEEP [place] TUCKER stent. ?This completes the revasculariz ation [...] Vitaliy Nobles M.D. ? Electronically Signed by: Vitaliy P [...] Signature Glucose 152 (H) 65 - 99 [facility] Fasting mg/dL [facility] [...] of Diabetes Mellitus, Position Statement from the [employer] Diabetes [employer]. ??Diabete s Care, Volume 33, Supplement 1, Jul 2009 BUN 52 (H) 10 - 20 mg/dL [facility] LABORATORY Creatinine 1.72 (H) 0.80 - [...] 15 mmol/L [facility] LABORATORY Calcium 8.9 8.5 - 10.5 [...] Cuevas MD CHEMISTRY ORDERABLES Performing Organization Address City/[facility]/ZIP [place] [address] (ABNORMAL) Prothrombin Time (12/12/2021 4:51 AM EDT)Only the most recent of4 resultswithin the time period is included. P athologist Signature PT 14.9 (H) 9.4 - 12.5 [facility] LABORATORY INR 1.3 [facility] [...] Cuevas MD HEMATOLOGY ORDERABLES Performing Organization Address City/[facility]/ZIP [place] [address] Magnesium (12/12/2021 4:51 AM EDT)Only the most recent of5 resultswithin the time period is included. P athologist Signature Magnesium 1.02 0.69 - 1.07 [facility] mmol/L [facility] LABORATORY Specimen Anatomical Collection Method Collection Time Receive d Time (Source) Location / / Volume Laterality Blood 12/12/2021 4:51 AM 2 5:06 EDT AM EDT Resulting Agency Comment Spec In Lab Iker Cuevas MD CHEMISTRY ORDERABLES Performing Organization Address City/[facility]/ZIP [place] [address] COVID-19 PCR (12/11/2021 10:13 AM EDT) [facility] Method Time Signature SARS-CoV-2 Not Detected Not Detected [facility] LAB[facility]ORY Comment: This result should [...] diagnosis of COVID-19 is performed using the AntVoice S-CoV-2 Assay as authorized by the FDA Emergency Use Authorization (EUA). This EUA assay is intended for In-vitro Diagnostic (IVD) use with respiratory sp ecimens such as nasopharyngeal swabs collected from individuals during the ac terrence phase of infection. This assay is performed based on the instructions for use provided by [employer]. and additional guidance provided by CDC and FDA. Testing is performed in the Clinical Genomics and Advanced Technolog y Laboratory within the Department of Pathology and Laboratory Medicine at [facility], certified under the Clinical Laboratory [...] clinical management guidance information are available at [facility] Coronavirus Disease 2019 (COVID-19) webpage under Information fo r Healthcare Professionals (https://www.cdc.gov/coronavirus/2019-nc ov/hcp/index.html) Additional information about this and ot her EUA tests can be found in provider and patient fact sheets at the following FDA website: https://www.fda.gov/medical-devices/wkjrhxbhwgz-bcbfeof-7913-mpgil-31-bmuhouxea- wln-pnluxrfglriggk-slgjbgk-devices/esyjf-bubqlyimlxe-slxp SARS-Cov-2 RNA Source IRONMOLDER Swab [facility] LABORATORY Specimen (Source) Anatomical Collection Method Collection Time Re ceived Time Location / / Volume Laterality Nasopharyngeal Swab 12/11/2021 10:13 05/03/2022 AM EDT 11:16 AM EDT Comment: Symptoms->Surveillance Resulting Agency Comment Spec In Lab Iker Cuevas MD MICROBIOLOGY - GENERAL ORDER [place] Performing Organization Address City/[facility]/ZIP [place] [address] Potassium (12/10/2021 7:46 PM EDT) athologist Signature Potassium 4.2 3.5 - 5.0 [facility] mmol/L [facility] - [...] Cuevas MD CHEMISTRY ORDERABLES Performing Organization Address City/[facility]/ZIP [place] [address] (ABNORMAL) Point of Care Blood Gas Historical (12/10/2021 9:04 AM EDT) Patholo gist Method Time Signature POC pH 7.40 7.35 - [facility] 7.45 [facility] LABORATORY POC PCO2 40 35 - 45 [facility] mmHg [facility] LABORATORY POC PO2 63 (L) 85 - 104 [facility] mmHg [facility] LABORATORY POC Base Excess 0.0 -3.0 - 3.0 [facility] K mmol/L [facility] LABORATORY POC HCO3 24.8 20.0 [facility] 26.0 [facility] mmol/[facility] LABORATORY POC Sodium 143 135 - 145 [facility] mmol/L [facility] LABORATORY POC Potassium 3.7 3.5 - 5.0 [facility] mmol/L [facility] LABORATORY POC Ionized Ca 1.07 (L) 1.15 - [facility] 1.33 [facility] mmol/[facility] LABORATORY POC Hematocrit 30.0 (L) 40.0 - [facility] 51.0 % [facility] LABORATORY POC Calc Hgb 10.2 (L) 13.7 - [facility] 17.5 g/dL [facility] LABORATORY Comment: The calculation of hemoglobin f rom hematocrit assumes a normal MCHC. POC Bgas Loc CC LAB [facility] LABORATORY Specimen Anatomical Collection Method Collection Time Receive d Time (Source) Location / / Volume Laterality Blood 12/10/2021 9:04 AM 2 EDT 12:00 PM EDT Ifeanyi Truong MD CHEMISTRY ORDERABLES Performing Organization Address City/State/ZIP [place] [address] Heparin (unfractionated) Level (12/10/2021 4:25 AM EDT)Only the most recent of5 resultswithin the time period is included. P athologist Signature Heparin UFH 0.69 IU/mL [facility] LABORATORY Comment: Heparin (anti-Xa) levels should be [...] Organization Address City/State/ZIP Code Phon e Number [place] [id number] (ABNORMAL) Troponin (12/09/2021 6:18 AM EDT)Only the most recent of3 results within the time period is included. athologist Signature Troponin-T 1.13 (H) 0.00 - [facility] 0.00 ng/mL [facility] [...] additional sample may be indicated. Reference: Third [place] Definition of Myocardial Infarction. Journal of the [employer] College of Cardiology 2012;60:1581-98 Specimen Anatomical Collection Method Collection Time Receive d Time (Source) Location / / Volume Laterality Blood 12/09/2021 6:18 AM 2 6:33 EDT AM EDT Resulting Agency Comment Spec In Lab Ikre Cuevas MD CHEMISTRY ORDERABLES Performing Organization Address City/[facility]/ZIP [facility] Phon e Number [address] TSH (12/09/2021 6:18 AM EDT) P athologist Signature TSH 1.60 0.27 - 4.20 [facility] mcIU/mL [facility] LABORATORY Comment: Reference Interval (mcIU/mL): Females: ??First Trimester: 0.23-3.88 ??Second Trimester: 0.22-3.90 ??Third Trimester: 0.44-4.66 Specimen Anatomical Collection Method Collection Time Receive d Time (Source) Location / / Volume Laterality Blood 12/09/2021 6:18 AM 2 6:33 EDT AM EDT Resulting Agency Comment Spec In Lab Iker Cuevas MD CHEMISTRY ORDERABLES Performing Organization Address City/[facility] [place] [address] (ABNORMAL) Hemoglobin A1c (12/09/2021 6:18 AM EDT) Analysis Performed At Patho logist Time Signature Hemoglobin A1C 7.4 (H) 4.3 - 5.6 [facility] % [facility] LABORATORY Comment: Reference Range: 4.3 - 5.6% [...] Avg Gluc See note mg/dL [facility] LABORATORY Comment: Estimated Average Glucose not [...] into estimated average glucose values. ??Diabetes Care 2008:31(8):8730-7379. Specimen Anatomical Collection Method Collection Time Receive d Time (Source) Location / / Volume Laterality Blood Venous Draw / 12/09/2021 6:18 AM 12/10/19 22 Unknown EDT 12:24 PM EDT Resulting Agency Comment Spec In Lab Migdalia BROWN CHEMISTRY ORDERABLES Performing Organization Address City/State/ZIP Code Ph[place] [address] Hepatic Function Panel (12/09/2021 6:18 AM EDT) P athologist Signature Total Protein 7.3 6.1 - 8.0 [facility] g/dL [facility] LABORATORY Albumin 4.2 3.2 - 5.2 [facility] g/dL [facility] LABORATORY AST 25 0 - 39 [facility] unit/L [facility] LABORATORY ALT 15 0 - 55 [facility] unit/L [facility] LABORATORY Alk Phos 75 40 - 130 [facility] unit/L [facility] LABORATORY Total 1.1 0.2 - 1.3 [facility] Bilirubin mg/dL [facility] LABORATORY Bili, Direct 0.2 0.0 - 0.3 [facility] LABORATORY Specimen Anatomical Collection Method Collection Time Receive d Time (Source) Location / / Volume Laterality Blood 12/09/2021 6:18 AM 6:33 EDT AM EDT Resulting Agency Comment Spec In Lab kIer Cuevas MD CHEMISTRY ORDERABLES Performing Organization Address City/State/ZIP [place] [address] Lipid Panel (Reflex Direct LDL) (12/09/2021 6:18 AM EDT) athologist Signature Chol, Total 105 mg/dL [facility] LABORATORY Comment: Lower Risk: <200 mg/dL Average Risk: 200-239 mg/dL Higher Risk: >qo=863 mg/dL Triglycerides 133 mg/dL [facility] LABORATORY Comment: Average Risk/Lower Risk: <150 mg/dL Borderline High Risk: 150-199 mg/dL High Risk: 200-499 mg/dL Very High Risk: >xv=118 mg/dL HDL 42 mg/dL [facility] LABORATORY Comment: Males: ?? Higher Risk: <40 mg/dL Females: ?? Higher Risk: <50 mg/dL LDL Cholesterol 36 mg/dL [facility] LABORATORY Comment: Lowest Risk: <100 mg/dL Lower Risk: 100-129 mg/dL Borderline High Risk: 130-159 mg/dL High Risk: 160-189 mg/dL Very High Risk: >wr=040 mg/dL Chol/HDL Ratio 2.5 ratio [facility] LABORATORY Lipid Interpretation See Note [facility] LABORATORY Comment: Lipid management should be guided by a p atient? s ASCVD risk, goals and preferences. ACC/AHA Guidelines recommend high intens ity statin if clinical ASCVD or LDL greater than or equal to 190 mg/dL. http://Arkeo.com/GXO-SDZ-Lzsfzccqc Adults aged 40-75 with LDL 70-189 mg/dL should have their 10 year ASCVD risk estimated with the ACC/AHA ASCVD risk es timator http://tools.acc.org/VGWKI-Oefz-Agjvwhyu r/ Statin should be discussed if risk [...] Address City/State/ZIP [place] [address] XR Chest One View [...] who have questions please contact the health manager critical care that requested your imaging first. ? [...] ho have questions please contact the health manager critical care that requested your imaging first. Amber Sanches MD IMG DX ORDERABLES (ABNORMAL) BLOOD GAS 2 ARTERIAL (12/09/2021 5:14 AM EDT) Analysis Performed At [facility] Time Signature pH Art 7.43 7.35 - [facility] 7.45 [facility] LABORATORY pCO2 Art 36 35 - 45 [facility] LABORATORY pO2 Art 67 (L) 85 - 104 [facility] LABORATORY HCO3 Art 23.4 20.0 - [facility] 26.0 [facility] mmol/L [facility] LABORATORY BE Art -0.9 -3.0 - 3.0 [facility] mmol/L [facility] LABORATORY Hgb Blood Gas 13.2 (L) 13.7 - [facility] 16.5 g/dL [facility] LABORATORY O2HB Art 91.3 (L) 94.0 - [facility] 97.0 % [facility] LABORATORY COHB Art 0.4 % [facility] LABORATORY Comment: Nonsmokers: 0.5-1.5% COHB Smokers: Variable, but usually less than 10% Toxic: 20-30% COHB Lethal: Greater than 60% COHB METHB Art 0.4 <=1.5 % [facility] LABORATORY Na Whole Blood 138 [...] [facility] LAB[facility] FIO2 Art 35 % [facility] LABORATORY Flow Art 8.0 LPM [facility] LABORATORY PF Ratio Art 191 [facility] LABORATORY Specimen Anatomical Collection Method Collection Time Receive d Time (Source) Location / / Volume Laterality Blood 12/09/2021 5:14 AM 2 5:14 EDT AM EDT Iker Cuevas MD CHEMISTRY ORDERABLES Performing Organization Address City/State/ZIP Code [place] [address] COVID-19 PCR (12/08/2021 5:00 PM EDT) [facility] Method Time Signature SARS-CoV-2 Not Detected Not Detected [place] RNA PCR [facility]OR[facility]ORY Comment: This result should be [...] using the Simplexa COVID-19 Direct Assay by Fusion Smoothiesjoi marcum as authorized by the FDA issued [...] [place], certified under the Clinical Laboratory Improvement Amendmen [...] clinical management guidance information are available at [facility] CDC Coronavirus Disease 2019 (COVID-19) webpage under Information fo r Healthcare Professionals (https://www.cdc.gov/coronavirus/2019-nc ov/hcp/index.html). Additional information about this and ot her EUA tests can be found in provider and patient fact sheets at the following FDA website: https://www.fda.gov/medical-devices/iiruhjrtjoj-fqmjels-6269-dspla-38-yfqbqdpsm- iny-bnpftfpmqbsput-wkamgls-devices/fujhp-plmrvuyafkx-liio SARS-CoV-2 Source IRONMOLDER Swab [facility]OR[facility] Specimen (Source) Anatomical Collection Method Collection Time Re ceived Time Location / / Volume Laterality Nasopharyngeal Swab 12/08/2021 5:00 12/08 PM EDT 6:03 PM EDT Comment: Symptoms->Surveillance Resulting Agency Comment Spec In Lab Iker Cuevas MD MICROBIOLOGY - GENERAL ORDER [place] Performing Organization Address City/State/ZIP [place] [address] Scan Doc: Echo (12/08/2021) [...] IMG FILM LIBRARY ORDERABLES Performing Organization Address City/[facility]/ZIP Code Phon e Number RAD [place], [place] Scan Doc: ECG (12/07/2021) Narrative This result has an attachment that is no t available. Historical Provider MEDIA MGR SCAN EXT ORDR/RSLT from Last 3 Months Insurance Payer Benefit Plan / Subscriber ID Effective Phone Address T ype Group Dates MEDICARE MEDICARE PART [id number] 2011-Prese [phone] [place] [address] [place] [id number] 2018-Prese [phone] [address] [place] [address] [place] [address] Advance Directives Documents on File Type Date Recorded Patient Vp Software Explanati on Advance Directives and Living 03/28/2013 [...] capacity to make decision: Yes Care Teams Dean Of Instruction Relationship Specialty Start Date End Date Lovely Vicente MD PCP - General 04/16/[address] [place] [address]
--- OUTSIDE RECORDS SUMMARY | 2022-02-25 08:09 | XMS_ITS | Encounter Summary ---
:1945 [place] [address] Care Team Providers Name Role Phone Lovely Vicente MD Primary Care Provider Encounter Details Date Type Department Care Team Description 01/28/2022 Orders Only Hide And Skin Processing Worker Zulma Finch, GERARDVD (art eriosclerotic [facility] cardiovascular disease) [facility] [place] [address] [place], [place] [phone] (Work) [phone] Social History Tobacco Use Types Packs/Day Years [...] Cardiology Vitaliy Nobles MD [facility] [address] [place], [place] [address] (Wo rk) 06/10/2022 Office Visit Dermatology Laura Scherer MD [facility] [address] [place], [place] [address] (Wo rk) documented as of this encounter Results (ABNORMAL) Basic Metabolic Panel (non-fasting) (01/30/2022 7:19 AM EDT) athologist Signature Glucose Lvl 237 (H) 65 - 199 [facility] mg/dL [facility] Comment: Diabetes: >=200 mg/dL plus symp toms BUN 34 (H) 10 - 20 mg/dL [facility]ORATORY Creatinine 1.45 0.80 - 1.50 mg/dL [facility] LABORATORY Sodium 141 135 - 145 mmol/L [facility] Potassium 4.7 3.5 - 5.0 mmol/L [facility] LABOR[facility]ORY [...] [facility] LABORATORY Calcium 9.5 8.5 - 10.5 mg/dL [facility] Estimated GFR 50 (L) >=60 [...] / Volume Laterality Blood 01/30/2022 7:19 AM 07/08/202 2 7:21 EDT AM EDT Resulting Agency Comment Spec In Lab Vitaliy Nobles MD CHEMISTRY ORDERABLES Performing Organization Address City/State/ZIP Code Phon e Number [place] [id number] documented in this encounter Visit Diagnoses Diagnosis ASCVD (arteriosclerotic cardiovascular d isease) Unspecified cardiovascular disease documented in this encounter Care Teams Aircraft Load Controller Relationship Specialty Start Date End Date Lovely iVcente MD PCP - General 04/16/[address] [place] [address] documented as of this encounter
--- OUTSIDE RECORDS SUMMARY | 2022-02-25 08:09 | XMS_ITS | Encounter Summary ---
:1945 Author Organization [facility] [place] [address] Care Team Providers Name Role Phone Lovely Vicente MD Primary Care Provider Encounter Details Date Type Department Care Team Description 02/19/2022 Laboratory Appointment Lab 3L [facility] systolic [facility] [place] [id number] Social History Tobacco Use Types Packs/Day Years [...] Nobles MD [facility] CARDIOLOGY [place], [place] 0[address] (Wo rk) 06/10/2022 Office Visit Dermatology Laura Scherer MD [facility] [address] [place], [place] [address] (Wo rk) documented as of [...] (ABNORMAL) Differential, Automated (02/19/2022 8:06 AM EDT) [facility] Method Time Signature Neutrophils % 76.0 % [facility] Neutr Abs (ANC) 5.49 1.70 - [facility] 6.10 [facility] x10(3)/[facility] LABORATORY Lymphocytes % 10.8 % [facility] Lymphocytes Abs 0.8 (L) 0.9 - 3.2 [facility] x10(3)/[facility] LABORATORY Monocytes % 10.2 % [facility] Monocyte Abs 0.7 0.3 - 0.9 [facility] x10(3)/[facility] LABORATORY Eosinophils % 1.2 % [facility] Eosinophils Abs 0.1 0.0 - 0.4 [facility] x10(3)/[facility] LABORATORY Basophils % 0.8 % [facility] Basophils Abs 0.1 0.0 - 0.1 [facility] x10(3)/[facility] LABORATORY Immature Gran % 1.00 % [facility] Comment: Immature granulocytes(IG's)percentage an d absolute count will include metamyelocytes, myelocytes, and promyelo cytes. Blood smears from CBCs yielding IG's will be scanned manually for concor dance. If this scan disagrees with the automated IG or if promyelocytes are not ed, a manual differential will be performed. Melisa Gran Abs 0.07 (H) 0.00 - 0.04 x10(3)/[facility] LABORATORY Specimen Anatomical Collection Method Collection Time Receive d Time (Source) Location / / Volume Laterality Blood 02/19/2022 8:06 AM 2 8:09 EDT AM EDT Resulting Agency Comment Spec In Lab Liz BROWN HEMATOLOGY ORDERABLES Performing Organization Address City/State/[place] [address] (ABNORMAL) Hemogram (02/19/2022 8:06 AM EDT) Analysis Performed At Patho logist Time Signature WBC 7.2 4.0 - 9.5 [facility] x10(3)/[facility] LABORATORY RBC 4.41 (L) 4.58 - [place] [address] [facility] x10(6)/[facility] LABORATORY Hemoglobin 13.2 (L) 13.7 - [place] 16.5 g/dL [facility] LABORATORY Hematocrit 40.9 40.5 - [facility] RYAN 48.5 % [facility] LABORATORY MCV 92.7 82.9 - [facility] RAYN 93.1 [facility] LABORATORY MCH 29.9 27.5 - [place] 32.1 pg [facility] LABORATORY MCHC 32.3 32.0 - [place] 35.7 g/dL [facility] LABORATORY Platelets 191 145 - 357 [facility] x10(3)/[facility] LABORATORY RDWSD 53.6 (H) 36.0 - [facility] RYAN 45.0 [facility] LABORATORY RDWCV 15.6 (H) 11.4 - [place] 13.8 % [facility] LABORATORY MPV 8.7 7.6 - 12.9 [facility] RYAN [facility] LABORATORY nRBC % Auto 0.0 % [facility] LABORATORY nRBC Abs Auto 0.000 0.000 - [place] [address] [facility] x10(3)/[facility] LABORATORY Specimen Anatomical Collection Method Collection Time Receive d Time (Source) Location / / Volume Laterality Blood 02/19/2022 8:06 AM 2 8:09 EDT AM EDT Resulting Agency Comment Spec In Lab Lzi BROWN HEMATOLOGY ORDERABLES Performing Organization Address City/State/[place] [address] [facility] [address] (ABNORMAL) pro-Brain Natriuretic Peptide (02/19/2022 8:06 AM EDT) athologist Signature ProBNP 984 (H) <=449 pg/mL [facility]OR[facility] Specimen Anatomical Collection Method Collection Time Receive d Time (Source) Location / / Volume Laterality Blood 02/19/2022 8:06 AM 8:09 EDT AM EDT Resulting Agency Comment Spec In Lab Zulma Plunkett MD CHEMISTRY ORDERABLES Performing Organization Address City/State/ZIP Code Phon e Number [address] (ABNORMAL) Basic Metabolic Panel (non-fasting) (02/19/2022 8:06 AM EDT) athologist Signature Glucose Lvl 139 65 - 199 [facility] mg/dL [facility] LABORATORY Comment: Diabetes: >=200 mg/dL plus symp toms BUN 31 (H) 10 - 20 mg/dL [facility] Creatinine 1.53 (H) 0.80 - 1.50 mg/dL [facility] LABORATORY Sodium 142 135 - 145 mmol/L [facility]OR[facility]ORY Potassium 5.4 (H) 3.5 - 5.0 mmol/L [facility] [...] - 15 mmol/L [facility]OR[facility] Calcium 9.7 8.5 - 10.5 mg/dL [facility] LABORATORY [...] [place] [address] documented in this encounter Visit Diagnoses Diagnosis Chronic systolic heart failure documented in this encounter Care Teams Mail Processing Clerk Relationship Specialty Start Date End Date Lovely Vicente MD PCP - General 04/16/[address] [place] [address] documented as of this encounter
--- OUTSIDE RECORDS SUMMARY | 2022-02-25 08:09 | XMS_ITS | Encounter Summary ---
:1945 Author Organization [facility] Address [facility] [place] [address] Care Team Providers Name Role Phone Lovely Vicente MD Primary Care Provider Reason for Visit Auth/Cert Specialty Diagnoses / Procedures Referred By Contact Refer red To Contact Diagnoses ASCVD (arteriosclerotic cardiovascular disease) [I25.10] Vitaliy Nobles MD [facility] Procedures PRO PERC TRLUML CORONARY STENT W/ANGIO ONE ART/BRANCH CARDIAC CATHETERIZATION STENT PLACEMENT-SINGLE MAJOR CORONARY ARTERY OR BRANCH [facility] [place] [address] Referral ID Status Reason Start Date Expiration Date Visits Requ ested Visits Authorized [id number] 1 1 Encounter Details Date Type Department Care Team Description 01/30/2022 Hospital Encounter Short Stay Unit at Vitaliy Nobles, CVD (arteriosclerotic cardiovascular disease); Barbara Blue MD 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 [place] [phone] Social History Tobacco Use Types Packs/Day Years [...] and Clopidogrel. Please follow up with your webfocus developer in the next 4-6 weeks. We have [...] Murray RN - 01/30/2022 4:54 PM EDT [facility] Short Stay Unit Discharge Note All [...] recent PCI presenting for staged PCI to [facility]. The pt states he has [...] recent PCI presenting for staged PCI to [facility]. The indications, expected benefits, and [...] SSU team Don has history of prior [place] and CABG. I had referred him to cardiac rehab at [facility] last month per HF team. He was waiting until this intervention before starting the program. Reviewed managing angina /use of sl nitroglycerin. Given parameters for home exercise. 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 We discussed short walks several times per day. Will send [facility] his discharge summary from this admission. The patient should be contacted by the Program within 1- 2 weeks from discharge. Brief Op Note - Vitaliy Nobles MD - 01/30/2022 10:19 AM EDT Images from the original note were not included. Formerly [facility] [place] [address] CORONARY ANGIOGRAM AND PERCUTANEOUS CORONARY INTERVENTION REPORT Patient: Don Fatima : 1945 MR number: [id number] Date of Service: 01/30/2022 Leather Belt Maker: Vitaliy Nobles MD Fellow: KEYON Elizabeth INDICATION: [...] a long 2.0 x 26 mm HARDEEP Strong TUCKER stent and positioned it at the [...] using a 2.0 x 26 mm HARDEEP Strong TUCKER stent. This completes the revascularization ofall [...] Vitaliy Nobles MD [facility] [address] [place], [place] [address] ([facility]) 06/10/2022 Office Visit Dermatology Laura Scherer MD [facility] DR TE[address] GR-DERMAT [place], [place] [address] ([facility]) Scheduled Orders Name Type Priority Associated Diagnoses [...] 1.70 - [facility] 6.10 [facility] x10(3)/[facility] LABORATORY Lymphocytes % 16.3 % [facility] LABORATORY Lymphocytes Abs 0.9 0.9 - 3.2 [facility] x10(3)/[facility] LABORATORY Monocytes % 10.0 % [facility] LABORATORY Monocyte Abs 0.6 0.3 - 0.9 [facility] x10(3)/[facility] LABORATORY Eosinophils % 0.5 % [facility] LABORATORY Eosinophils Abs 0.0 0.0 - 0.4 [facility] x10(3)/[facility] LABORATORY Basophils % 0.5 % [facility] LABORATORY Basophils Abs 0.0 0.0 - 0.1 [facility] x10(3)/[facility] LABORATORY Immature Gran % 0.90 % [...] Gran Abs 0.05 (H) 0.00 - 0.04 x10(3)/[facility] LABORATORY Specimen Anatomical Collection Method Collection Time Receive d Time (Source) Location / / Volume Laterality Blood 01/30/2022 2:12 PM 2 2:37 EDT PM EDT Resulting Agency Comment Spec In Lab Eddi Elizabeth Jr., MD HEMATOLOGY ORDERABLES Performing Organization Address City/State/[place] [address] (ABNORMAL) Hemogram (01/30/2022 2:12 PM EDT) Analysis Performed At Patho logist Time Signature WBC 5.5 4.0 - 9.5 [facility] x10(3)/[facility] LABORATORY RBC 4.30 (L) 4.58 - [facility] 5.54 [facility] x10(6)/[facility] LABORATORY Hemoglobin 12.7 (L) 13.7 - [facility] g/dL [facility] Hematocrit 39.4 (L) 40.5 - [facility] 48.5 % [facility] MCV 91.6 82.9 - [facility] 93.1 fL [facility] MCH 29.5 27.5 - [facility] 32.1 pg [facility]ORAT[facility] MCHC 32.2 32.0 - [place] BLUE 35.7 g/dL [facility] LABORATORY Platelets 172 145 - 357 [facility] x10(3)/[facility] LABORATORY RDWSD 54.5 (H) 36.0 - [facility] RYAN 45.0 [facility] LABORATORY RDWCV 16.4 (H) 11.4 - [facility] RYAN 13.8 % [facility] LABORATORY MPV 9.2 7.6 - 12.9 [facility] LABORATORY nRBC % Auto 0.0 % [facility] LABORATORY nRBC Abs Auto 0.000 0.000 - [facility] 0.000 [facility] x10(3)/[facility] LABORATORY Specimen Anatomical Collection Method Collection Time Receive d Time (Source) Location / / Volume Laterality Blood 01/30/2022 2:12 PM 2 2:37 EDT PM EDT Resulting Agency Comment Spec In Lab Eddi Elizabeth Jr., MD HEMATOLOGY ORDERABLES Performing Organization Address City/State/[place] [address] (ABNORMAL) Basic Metabolic Panel (non-fasting) (01/30/2022 2:12 PM EDT) athologist Signature Glucose Lvl 163 65 - 199 [facility] mg/dL [facility] Comment: Diabetes: >=200 mg/dL plus symp toms BUN 30 (H) 10 - 20 mg/dL [facility] LABORATORY Creatinine 1.47 0.80 - 1.50 mg/dL [facility] LABORATORY Sodium 140 135 - 145 mmol/L [facility] LABORATORY Potassium 4.2 3.5 - 5.0 mmol/L [facility] [...] Anion Gap 11 5 - 15 mmol/L [facility] LABORATORY Calcium 9.2 8.5 - 10.5 mg/dL [facility] LABORATORY Estimated GFR 49 (L) >=60 [...] Nobles MD CHEMISTRY ORDERABLES Performing Organization Address City/[facility]/ZIP Code Phon e Number [address] POCT Glucose (01/30/2022 1:41 PM EDT) athologist Signature POC Glucose 148 65 - 199 [facility] mg/dL [facility] Comment: Supplemental ranges: <140 mg/dL before meals <180 mg/dL all other times of the day Specimen Anatomical Collection Method Collection Time Receive d Time (Source) Location / / Volume Laterality Blood 01/30/2022 1:41 PM 2 1:41 EDT PM EDT Vitaliy Nobles MD POINT OF CARE TEST ORDERABLE S Performing Organization Address City/[facility]/ZIP Code Phon e Number [address] POCT Glucose (01/30/2022 10:48 AM EDT) athologist Signature POC Glucose 193 65 - 199 [facility] mg/dL [facility] Comment: Supplemental ranges: <140 mg/dL before meals <180 mg/dL all other times of the day Specimen Anatomical Collection Method Collection Time Receive d Time (Source) Location / / Volume Laterality Blood 01/30/2022 10:48 01/30/2022 AM EDT 10:48 AM EDT Vitaliy Sandra Nobles MD POINT OF CARE TEST ORDERABLE S Performing Organization Address City/[facility]/ZIP Code Phon e Number [place] [phone] EKG 12 Lead (01/30/2022 10:33 AM EDT) Component Value Ref Range Test Analysis Performed Pathologis t Method Time At Signature Ventricular rate 64 BPM MUSE SYSTEM Atrial Rate 64 BPM MUSE SYSTEM P-R Interval 162 ms MUSE SYSTEM QRS Duration 94 ms MUSE SYSTEM Q-T Interval 422 ms MUSE SYSTEM QTC Calculated 435 ms MUSE SYSTEM (Bezet) Calculated P [place] 41 degrees MUSE SYSTEM Calculated R [place] -27 degrees MUSE SYSTEM Calculated T [place] 104 degrees MUSE SYSTEM INTERPRETATION Normal sinus rhythm MUSE SYSTEM Anterolateral infarct (cited on or before 09-DEC-2021) Abnormal ECG When compared with ECG of 10-DEC-2021 11:17, No significant change was found Confirmed by Gary Perez ([id number]) on 01/30/2022 5:57:5 2 PM Specimen Anatomical Collection Method Collection Time Receive d Time (Source) Location / / Volume Laterality 01/30/2022 10:33 01/30/2022 5:57 AM EDT PM EDT Vitaliy Sandra Nobles MD ECG ORDERABLES Performing Organization Address City/[facility]/ZIP Code Phon e Number MUSE SYSTEM CARDIAC CATHETERIZATION (01/30/2022 10:16 AM EDT) Specimen (Source) Anatomical Location Collection Method / Collectio n Time Received Time / Laterality Volume Narrative CARDIOMAC SYSTEM - 01/30/2022 2:09 PM ED T ?[facility] ? Cardiac Cathete rization/Intervention Report ? Patient Name: Don Fatima. ? Procedure Date: 01/30/2022 ? A #: [id number] ? Primary Physician: Nobles, Vitaliy P ? Case #: [id number] ? File Name: [id number] ? Catheterization Order Number: [id number] ? [facility] ? Final Report [place], [place] ? Patient Name: ? Don E. Stewa rt ? ID#: ?[id number] ? : ?1945 ? Procedure Date: ? [...] was Urgent. The indication for ?the manager cardiac cath visit is stable kn own CAD. Chest [...] guiding catheter an d a 3.[address] ??20 Mhz ?using Manual pullback. ??Imagin [...] A premounted 2.00 x 26 mm Hardeep Strong (TUCKER) ? was deployed wi a maximum [...] Wedelivered along 2.0 x 26 mm HARDEEP Strong ? TUCKER stent and p ositioned it [...] dose administered prior to arrival in the manager cardiac cath. ?Recommended anti-platelet/anti- thrombotic regimen: ?Continue aspirin 81 [...] may require ?modification of this regimen. [facility] Interventional Cardiology for ?questions. ?The 1 year [...] using a 2.0 x 26 mm HARDEEP Strong TUCKER stent. ?This completes the revasculariz ation [...] MD CARDIAC CATH ORDERABLES Performing Organization Address City/[facility]/ZIP Code Phon e Number CARDIOMAC SYSTEM (ABNORMAL) POCT Glucose (01/30/2022 9:04 AM EDT) P athologist Signature POC Glucose 212 (H) 65 - 199 [facility] mg/dL [facility] Comment: Supplemental ranges: <140 mg/dL before meals <180 mg/dL all other times of the day Specimen Anatomical Collection Method Collection Time Receive d Time (Source) Location / / Volume Laterality Blood 01/30/2022 9:04 AM 2 9:04 EDT AM EDT Vitaliybrock Nobles MD POINT OF CARE TEST ORDERABLE S Performing Organization Address [facility] [place] [address] (ABNORMAL) POCT Glucose (01/30/2022 8:10 AM EDT) P athologist Signature POC Glucose 224 (H) 65 - 199 [place] [facility]AN mg/dL [facility] Comment: Supplemental ranges: <140 mg/dL before meals <180 mg/dL all other times of the day Specimen Anatomical Collection Method Collection Time Receive d Time (Source) Location / / Volume Laterality Blood 01/30/2022 8:10 AM 2 8:10 EDT AM EDT Vitaliybrock Nobles MD POINT OF CARE TEST ORDERABLE S Performing Organization Address City/[facility]/[place] [address] documented in this encounter Visit Diagnoses Diagnosis ASCVD (arteriosclerotic cardiovascular d isease) Unspecified cardiovascular disease 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 ASHD (arteriosclerotic heart disease) Coronary atherosclerosis of unspecified type of vessel, [place] or graft ASCVD (arteriosclerotic cardiovascular d isease) Unspecified cardiovascular disease documented in this encounter Admitting Diagnoses Diagnosis CAD (coronary artery disease) Coronary atherosclerosis of unspecified type of vessel, [place] or graft documented in this encounter Administered [...] Procedure), Routine niCARdipine (Cardene) (100 mcg/mL) dilution (FOREST PRODUCTS TEACHER) (CANCELED ) 0927 (Given - Provider: Vitaliy [...] (Intra-Procedure) documented in this encounter Care Teams Manufacturing Laborer Relationship Specialty Start Date End Date Lovely Vicente MD PCP - General 04/16/[address] [place] [address] documented as of this encounter
--- OUTSIDE RECORDS SUMMARY | 2022-02-25 08:09 | XMS_ITS | Encounter Summary ---
:1945 Author Organization [facility] [place] [address] Care Team Providers Name Role Phone Lovely Vicente MD Primary Care Provider Encounter Details Date Type Department Care Team Description 02/24/2022 Notes Only [place] [address] Social History Tobacco Use Types Packs/Day Years Used Date Former Smoker Cigarettes 3 5 Quit: 07/26/18 69 Smokeless Tobacco: Never Used Alcohol Use Standard Drinks/Week Comments No 0 (1 standard drink = 0.6 oz pure alcoho l) Sex Assigned at Date Recorded Not on file documented as of this encounter Progress Notes Morgan Wood - 02/24/2022 9:58 AM EDT I sent a letter and the application for assistance with Entresto to the patient for them to complete, sign and return to the Medication Assistance Program. The [facility] office will follow up with the patient in 5 business days to see if the patient has received the application and if they have any questions. documented in this encounter Plan of Treatment Upcoming Encounters Date Type Specialty Care Team Description 03/26/2022 Office Visit Cardiology Vitaliy Nobles MD [facility] [address] [place], [place] [address] (Wo rk) 06/10/2022 Office Visit Dermatology Laura Scherer MD [facility] ER [address] [place], [place] [address] (Wo rk) documented as of this encounter Visit Diagnoses Not on filedocumented in this encounter Care Teams Hairspring Assembler Relationship Specialty Start Date End Date Lovely Vicente MD PCP - General 04/16/[address] [place] [address] documented as of this encounter
--- OUTSIDE RECORDS SUMMARY | 2022-02-25 08:09 | XMS_ITS | Encounter Summary ---
:1945 Author Organization [facility] [place] [address] Care Team Providers Name Role Phone Lovely Vicente MD Primary Care Provider Reason for Referral Diagnostic Test (Routine) - New Request Specialty Diagnoses / Procedures Referred By Contact Refer red To Contact Cardiology Diagnoses Chronic systolic heart failure Liz Carrera PA [facility] Non-Inv Card Lab Procedures Echocardiogram Transthoracic [facility] [place] [address] [place] [address] Fax: Referral ID Status Reason Start Expiration Visits Visits Date Date Requested Authorized [id number] New Request Specialty 02/19/2022 02/19/2023 1 1 Service Requested Encounter Details Date Type Department Care Team Description 02/19/2022 Office Visit Cardiology at [facility] Liz Carrera, Chronic systolic heart [facility] [place] [address] Cardiology Dept [phone] [place], [place] [address] Social History Tobacco Use Types [...] As per DC Summary - Admitted to [facility] on 12/08/21, transferred from [facility], respiratory distress with hypoxia 86% on RA. [...] mg PO daily in place of Lasix. [place] is new for him and he will [...] his PCP. He started [facility] rehab in [facility]. Monitored vitals/trends at home: Weight [...] Antiplatelet (DAPT) Recommendations above ? TTE from [facility] 12/08/21 ?? 07/28/2019 Echocardiogram: SUMMARY: 1. The [...] regurgitation present. 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 Post-op atrial fibrillation [id number] 7 (CHF, HTN, DM, vascular disease, thromboembolism) Eliquis 7. PAD 08/06/2017: Right 1st, 2nd, 3rd toe amputation 08/11/2017: Left??femoral arterial access, RLE??angiogram, Balloon angioplasty of R PT 10/25/2017: right popliteal-pedal bypass at [facility] 8. Hypothyrodism S/p thyroidectomy for goiter [...] MD [facility] [address] [place], [place] [address] (Wo rk) 06/10/2022 Office Visit Dermatology Laura Scherer MD [facility] [address] [place], [place] [address] (Wo rk) Scheduled Orders Name Type Priority Associated Order Schedule Diagnoses Echocardiogram Echocardiography Routine Chronic systolic Expec vlad: Transthoracic heart failure 05/22/2022 (Approximate), Expires: 11/21/2022 documented as of this encounter Results (ABNORMAL) Basic Metabolic Panel (non-fasting) (02/19/2022 8:06 AM EDT) athologist Signature Glucose Lvl 139 65 - 199 [facility] mg/dL [facility] Comment: Diabetes: >=200 mg/dL plus symp toms BUN 31 (H) 10 - 20 mg/dL [facility] Creatinine 1.53 (H) 0.80 - 1.50 mg/dL [facility] [...] 107 mmol/L [facility] CO2 31 22 - 31 mmol/L [facility] [...] Organization Address City/State/[place] [address] (ABNORMAL) pro-Brain Natriuretic Peptide (02/19/2022 8:06 AM EDT) P athologist Signature ProBNP 984 (H) <=449 pg/mL [facility] Specimen Anatomical Collection Method Collection Time Receive d Time (Source) Location / / Volume Laterality Blood 02/19/2022 8:06 AM 8:09 EDT AM EDT Resulting Agency Comment Spec In Lab Zulma Plunkett MD CHEMISTRY ORDERABLES Performing Organization Address City/State/[place] [address] documented in this encounter Visit Diagnoses Diagnosis Chronic systolic heart failure documented in this encounter Care Teams Wound/Ostomy Clinical Nurse Specialist Relationship Specialty Start Date End Date Lovely Vicente MD PCP - General 04/16/[address] [place] [address] documented as of this encounter
--- OUTSIDE RECORDS SUMMARY | 2022-02-25 08:09 | XMS_ITS | Encounter Summary ---
:1945 Author Organization [facility] [place] [address] Care Team Providers Name Role Phone Lovely Vicente MD Primary Care Provider Encounter Details Date Type Department Care Team Description 12/12/2021 Telephone Cardiology at [facility] [place] [address] Social History Tobacco Use Types Packs/Day [...] - 12/12/2021 11:36 AM EDT RTC to [place] [facility] regarding pharmacists questions as to whether the [...] Vitaliy Nobles MD [facility] ER [address] [place], [place] [address] (Wo rk) 06/10/2022 Office Visit Dermatology Laura Scherer MD [facility] [address] [place], [place] [address] (Wo rk) documented as of this encounter Visit Diagnoses Not on filedocumented in this encounter Care Teams Electrotyper Relationship Specialty Start Date End Date Lovely Vicente MD PCP - General 04/16/[address] [place] [address] documented as of this encounter
--- OUTSIDE RECORDS SUMMARY | 2022-02-25 08:09 | XMS_ITS | Encounter Summary ---
:1945 Author Organization [facility] [place] [address] Care Team Providers Name Role Phone Lovely Vicente MD Primary Care Provider Reason for Visit Reason Onset Date Comments Advice Only 01/28/2022 Encounter Details Date Type Department Care Team Description 01/28/2022 Telephone Cardiology at [facility] Chitra Angela, claim [place] [address] Social History Tobacco Use Types Packs/Day [...] Fatima assists patient with medications. Number for dairy laboratory technician scheduling given and she will call them to verify this information Meds reviewed. As per our form from dairy laboratory technician Eliquis hold for 48 hours prior. Pt [...] Vitaliy Nobles MD [facility] [address] [place], [place] [address] (Wo rk) 06/10/2022 Office Visit Dermatology Laura Scherer MD [facility] [address] [place], [place] [address] (Wo rk) documented as of this encounter Visit Diagnoses Not on filedocumented in this encounter Care Teams Senior Storage Administrator Relationship Specialty Start Date End Date Lovely Vicente MD PCP - General 04/16/[address] [place] [address] documented as of this encounter
--- OUTSIDE RECORDS SUMMARY | 2022-02-25 08:09 | XMS_ITS | Encounter Summary ---
:1945 Author Organization [facility] [place] [address] Care Team Providers Name Role Phone Lovely Vicente MD Primary Care Provider Reason for Visit Reason Onset Date Comments Follow-up 02/23/2022 Medication adjustmen t and new med Encounter Details Date Type Department Care Team Description 02/23/2022 Telephone Cardiology at [facility] [place] Martha Comer, Follow-up ([facility] RN adjustbrandon t and new med) [place] [address] Social History Tobacco Use Types Packs/Day Years Used Date Former Smoker Cigarettes 3 5 Quit: 07/26/18 69 Smokeless Tobacco: Never Used Alcohol Use Standard Drinks/Week Comments No 0 (1 standard drink = 0.6 oz pure alcoho l) Sex Assigned at Date Recorded Not on file documented as of this encounter Miscellaneous Notes Telephone Encounter - Martha Comer RN - 02/24/2022 4:47 PM EDT Call placed to pt & with the following response from STEPHANIE Poole: Yes, please repeat. ??I placed the order for BMP and sent to [facility]. will call [facility] to make an appointment for next Wednesday03/04/22. They will call when he gets the test done so we can get the results. Telephone Encounter - Martha Comer RN - 02/23/2022 6:19 PM EDT , Angela calling for pt, she helps with his meds, to confirm what he is to do with the Spironolactone and Entresto. Per STEPHANIE Poole he is to decrease the Spironolactone (Aldactone) 25 mg to 12.5 mg (1/2 of 25 mg tablet) daily. She will correct his pill enterprise resource planner to the new dose. Will need to check with STEPHANIE Poole about repeat BMP to recheck K+ level. If yes he will get the test done at [facility]. They are aware that he will need to make an appt at [facility] to get the test done. Entresto: states that they cannot afford $120/month for the co-pay. He will not be out of the gap in his insurance until the end of the year. She was told by Ge from the Specialty pharmacy that he did not qualify for the Rig[employer] money. Advised that we will ask The staff in the [facility] office to call her to see if he qualifies for assistance from the [facility]. She is thankful for the assistance, as he is taking insulin that is very expensive too. Instructed to call this field underwriter, if he does qualify for assistance from [employer] and that he has gotten the medication so we can review the details of starting this medication. Telephone Encounter - Martha Comer RN - 02/23/2022 6:19 PM EDT ----- Message from STEPHANIE Pratt sent at 02/19/2022 9:26 AM EDT ----- Hi - Checking cost of Entresto to replace losartan Martha Cook I reduced the dose of raiza to 12.5 due to a potassium of 5.4 today. We also discussed switching torsemide to prn when Entresto dispensed. Cr 1.5. Thanks documented in this encounter Plan of Treatment Upcoming Encounters Date Type Specialty Care Team Description 03/26/2022 Office Visit Cardiology Vitaliy Nobles MD [facility] [address] [place], [place] [address] (Wo rk) 06/10/2022 Office Visit Dermatology Laura Scherer MD [facility] [address] [facility] [place], [place] [address] (Wo rk) documented as of this encounter Visit Diagnoses Not on filedocumented in this encounter Care Teams Crown Pouncer Relationship Specialty Start Date End Date Lovely Vicente MD PCP - General 04/16/[address] [place] [address] documented as of this encounter
--- OUTSIDE RECORDS SUMMARY | 2022-02-25 08:09 | XMS_ITS | Encounter Summary ---
:1945 Author Organization [facility] [place] [address] Care Team Providers Name Role Phone Lovely Vicente MD Primary Care Provider Encounter Details Date Type Department Care Team Description 02/23/2022 Refill Cardiology at [facility] Liz Poole PA [facility] [place] [address] Cardiology Dept [phone] [place], [place] [address] (Wo rk) Social History Tobacco Use Types Packs/Day Years Used Date Former Smoker Cigarettes 3 5 Quit: 07/26/18 69 Smokeless Tobacco: Never Used Alcohol Use Standard Drinks/Week Comments No 0 (1 standard drink = 0.6 oz pure alcoho l) Sex Assigned at Date Recorded Not on file documented as of this encounter Progress Notes Oxana Oneill RPH - 02/23/2022 4:26 PM EDT Specialty Pharmacy Referral; Oxana Oneill RPH Transfer of Services Don Fatima [address] [place] [address] [place] [address] Telephone Information: Work Phone Not on file. The [facility] has received a prescription for Entresto for patient Mr. Don Fatima 76 y.o. (1945). The patient requests the prescription to be filled with [facility]. We spoke to patient to notify of this change and to provide number to reach the new filling pharmacy. A copyof patient's medication profile was offered to the accepting pharmacy. Additional instructions provided to patient about transfer: no The patient has been advised to call the - Specialty Pharmacy at [phone] with any questionsor concerns on this referral. Thank you, Oxana Oneill RPH 02/23/22 4:26 PM Patient understands no changes to current drug regimen were made at this time. documented in this encounter Plan of Treatment Upcoming Encounters Date Type Specialty Care Team Description 03/26/2022 Office Visit Cardiology Vitaliy Nobles MD [facility] [address] [place], [place] [address] (Wo rk) 06/10/2022 Office Visit Dermatology Laura Scherer MD [facility] [address] [place], [place] [address] (Wo rk) documented as of this encounter Visit Diagnoses Not on filedocumented in this encounter Care Teams Rhit Relationship Specialty Start Date End Date Lovely Vicente MD PCP - General 04/16/[address] [place] [address] documented as of this encounter
--- OUTSIDE RECORDS SUMMARY | 2022-02-25 08:09 | XMS_ITS | Encounter Summary ---
:1945 [place] [address] Care Team Providers Name Role Phone Lovely Vicente MD Primary Care Provider Encounter Details Date Type Department Care Team Description 12/24/2021 Orders Only Paraoptometric Zulma Finch, GERARDVD (art eriosclerotic [facility] cardiovascular disease) [facility] [place] [address] [place], [place] [phone] (Work) [phone] Social History Tobacco Use Types Packs/Day Years [...] Vitaliy Nobles MD [facility] [address] [place], [place] [address] (Wo rk) 06/10/2022 Office Visit Dermatology Laura Scherer MD [facility] [address] [place], [place] [address] (Wo rk) documented as of this encounter Visit Diagnoses Diagnosis ASCVD (arteriosclerotic cardiovascular d isease) Unspecified cardiovascular disease documented in this encounter Care Teams Risk Compliance Manager Relationship Specialty Start Date End Date Lovely Vicente MD PCP - General 04/16/15 [address] [place] [address] documented as of this encounter
--- OUTSIDE RECORDS SUMMARY | 2022-02-25 08:09 | XMS_ITS | Encounter Summary ---
:1945 Author Organization [facility] Address [facility] [place] [address] Care Team Providers Name Role Phone Lovely Vicente MD Primary Care Provider Reason for Visit Auth/Cert Specialty Diagnoses / Procedures Referred By Contact Refer red To Contact Diagnoses ASCVD (arteriosclerotic cardiovascular disease) [I25.10] Vitaliy Nobles MD [facility] Procedures PRO PERC TRLUML CORONARY STENT W/ANGIO ONE ART/BRANCH CARDIAC CATHETERIZATION STENT PLACEMENT-SINGLE MAJOR CORONARY ARTERY OR BRANCH [facility] [place] [address] Referral ID Status Reason Start Date Expiration Date Visits Requ ested Visits Authorized [id number] 1 1 Encounter Details Date Type Department Care Team Description 01/30/2022 Surgery Product Tester Asa Coulter MD CARDIAC CATHETERIZATION [facility] [place] [address] [place] [address] [phone] (Wo rk) Social History Tobacco Use Types [...] and Clopidogrel. Please follow up with your infrastructure manager in the next 4-6 weeks. We have made a referral to cardiac rehab. Please see the attached instructions regarding care to your right wrist access site. AttachmentsThe following attachments cannot be sent through Care Everywhere. Coronary Angiogram: Post-op (Wolof)documented in this encounter Medications at Time of [...] Murray RN - 01/30/2022 4:54 PM EDT [facility] Short Stay Unit Discharge Note All [...] from the original note were not included. [facility] [place] [address] [address] CORONARY ANGIOGRAM AND PERCUTANEOUS CORONARY INTERVENTION REPORT Patient: Don Fatima : 1945 MR number: [id number] Date of Service: 01/30/2022 Route Rider Supervisor: Vitaliy Nobles MD Fellow: KEYON Elizabeth INDICATION: [...] delivered a long 2.0 x 26 mm ORION Lycoming TUCKER stent and positioned it at the [...] using a 2.0 x 26 mm ORION Lycoming TUCKER stent. This completes the revascularization ofall [...] Nobles MD [facility] [address] [place], [place] [address] (Wo rk) 06/10/2022 Office Visit Dermatology Laura Scherer MD [facility] DR TEJA GR-DERMAT [facility] [place], [place] [address] (Wo rk) Scheduled Orders Name [...] Abs (ANC) 3.96 1.70 - [facility] 6.10 [facility] x10(3)/[facility] LABORATORY Lymphocytes % 16.3 % [facility] LABORATORY Lymphocytes Abs 0.9 0.9 - 3.[address] [facility] x10(3)/[facility] LABORATORY Monocytes % 10.0 % [facility] LABORATORY Monocyte Abs 0.6 0.3 - 0.[address] [facility] x10(3)/[facility] LABORATORY Eosinophils % 0.5 % [facility] LABORATORY Eosinophils Abs 0.0 0.0 - 0.[address] [facility] x10(3)/[facility] LABORATORY Basophils % 0.5 % [facility] LABORATORY Basophils Abs 0.0 0.0 - 0.[address] [facility] x10(3)/[facility] LABORATORY Immature Gran % 0.90 % [...] Organization Address City/State/ZIP Code Phon e Number [place] [id number] (ABNORMAL) Hemogram (01/30/2022 2:12 PM EDT) Analysis Performed At Patho logist Time Signature WBC 5.5 4.0 - 9.[address] [facility] x10(3)/[facility] LABORATORY RBC 4.30 (L) 4.58 - [facility] RYAN 5.54 [facility] x10(6)/[facility] LABORATORY Hemoglobin 12.7 (L) 13.7 - [facility] g/dL [facility] LABORATORY Hematocrit 39.4 (L) 40.5 - [facility] RYAN 48.5 % [facility] LABORATORY MCV 91.6 82.9 - [facility] 93.1 fL [facility] LABORATORY MCH 29.5 27.5 - [place]YAN 32.1 pg [facility] LABORATORY MCHC 32.2 32.0 - [facility] 35.7 g/dL [facility] LABORATORY Platelets 172 145 - [address] [facility] x10(3)/[facility] LABORATORY RDWSD 54.5 (H) 36.0 - [facility] 45.0 [facility] LABORATORY RDWCV 16.4 (H) 11.4 - [facility] 13.8 % [facility] LABORATORY MPV 9.2 7.6 - 12.9 [facility] LABORATORY nRBC % Auto 0.0 % [facility] LABORATORY nRBC Abs Auto 0.000 0.000 - [facility] 0.000 [facility] x10(3)/[facility] LABORATORY Specimen Anatomical Collection Method Collection Time Receive d Time (Source) Location / / Volume Laterality Blood 01/30/2022 2:12 PM 2:37 EDT PM EDT Resulting Agency Comment Spec In Lab Eddi Elizabeth Jr., MD HEMATOLOGY ORDERABLES Performing Organization Address City/State/ZIP [place] [address] (ABNORMAL) Basic Metabolic Panel (non-fasting) (01/30/2022 2:12 PM EDT) athologist Signature Glucose Lvl 163 65 - [address] [facility] mg/dL [facility] LABORATORY Comment: Diabetes: >=200 mg/dL plus symp toms BUN 30 (H) 10 - 20 mg/dL [facility] LABORATORY Creatinine 1.47 0.80 - 1.50 mg/dL [facility] [...] - 15 mmol/L [facility] LABORATORY Calcium 9.2 8.5 - 10.5 [...] Nobles MD CHEMISTRY ORDERABLES Performing Organization Address City/[facility]/ZIP Code Phon e Number [address] POCT Glucose (01/30/2022 1:41 PM EDT) athologist Signature POC Glucose 148 65 - [address] [facility] mg/dL [facility] LABORATORY Comment: Supplemental ranges: <140 mg/dL before meals <180 mg/dL all other times of the day Specimen Anatomical Collection Method Collection Time Receive d Time (Source) Location / / Volume Laterality Blood 01/30/2022 1:41 PM 2 1:41 EDT PM EDT Vitaliy Nobles MD POINT OF CARE TEST ORDERABLE S Performing Organization Address City/State/[place] [address] POCT Glucose (01/30/2022 10:48 AM EDT) athologist Signature POC Glucose 193 65 - 199 [facility]dL [facility] LABORATORY Comment: Supplemental ranges: <140 mg/dL before meals <180 mg/dL all other times of the day Specimen Anatomical Collection Method Collection Time Receive d Time (Source) Location / / Volume Laterality Blood 01/30/2022 10:48 01/30/2022 AM EDT 10:48 AM EDT Vitaliy Sandra Nobles MD POINT OF CARE TEST ORDERABLE S Performing Organization Address City/State/ZIP [place] [address] EKG 12 Lead (01/30/2022 10:33 AM EDT) Component Value Ref Range Test Analysis Performed Pathologis t Method Time At Signature Ventricular rate 64 BPM MUSE SYSTEM Atrial Rate 64 BPM MUSE SYSTEM P-R Interval 162 ms MUSE SYSTEM QRS Duration 94 ms MUSE SYSTEM Q-T Interval 422 ms MUSE SYSTEM QTC Calculated 435 ms MUSE SYSTEM (Bezet) Calculated P [place] 41 degrees MUSE SYSTEM Calculated R [place] -27 degrees MUSE SYSTEM Calculated T [place] 104 degrees MUSE SYSTEM INTERPRETATION Normal sinus rhythm MUSE SYSTEM Anterolateral infarct (cited on or before 09-DEC-2021) Abnormal ECG When compared with ECG of 10-DEC-2021 11:17, No significant change was found Confirmed by Gary Perez ([id number]) on 01/30/2022 5:57:5 2 PM Specimen Anatomical [...] SYSTEM - 01/30/2022 2:09 PM ED T ?[facility] ? Cardiac Cathete rization/Intervention Report ? Patient Name: Don Fatima. ? Procedure Date: 01/30/2022 ? A #: [id number] ? Primary Physician: Nobles, Vitaliy P ? Case #: [id number] ? File Name: [id number] ? Catheterization Order Number: [id number] ? [facility] ? Final Report [place], [place] ? Patient Name: ? Don E. Stewa rt ? ID#: ?[id number] ? : ?1945 ? Procedure Date: ? January 30, 2022 ? Case #: ? [id number] ? Room: ? 1 ? Case Physician: [...] was Urgent. The indication for ?the laborer pie bakery visit is stable kn own CAD. Chest [...] guiding catheter an d a 3.5 Fr [facility] [address] ??20 Mhz ?using Manual pullback. ??Imagin [...] ?? A premounted 2.00 x 26 mm [place] Lycoming (TUCKER) ? was deployed wi th a [...] Wedelivered along 2.0 x 26 mm ORION Lycoming ? TUCKER stent and p ositioned it [...] administered prior to arrival in the laborer pie bakery. ?Recommended anti-platelet/anti- thrombotic regimen: ?Continue aspirin 81 [...] may require ?modification of this regimen. C [facility] Interventional Cardiology for ?questions. ?The 1 [...] using a 2.0 x 26 mm ORION Lycoming TUCKER stent. ?This completes the revasculariz ation [...] POC Glucose 212 (H) 65 - 199 [facility] mg/dL [facility] LABORATORY Comment: Supplemental ranges: <140 [...] [place] [address] (ABNORMAL) POCT Glucose (01/30/2022 8:10 AM EDT) P athologist Signature POC Glucose 224 (H) 65 - 199 [facility] mg/dL [facility] LABORATORY Comment: Supplemental ranges: <140 [...] [place] - [place] [address] documented in this encounter Visit Diagnoses Diagnosis ASCVD (arteriosclerotic cardiovascular d isease) Unspecified cardiovascular disease 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 ASHD (arteriosclerotic heart disease) Coronary atherosclerosis of unspecified type of vessel, [place] or graft ASCVD (arteriosclerotic cardiovascular d isease) Unspecified cardiovascular disease documented in this encounter Admitting Diagnoses Diagnosis CAD (coronary artery disease) Coronary atherosclerosis of unspecified type of vessel, [place] or graft documented in this encounter Administered [...] Given 02/2022 10:11 AM EDT 100 mcg (BRAKE REPAIR MECHANIC) ONCE PRN, Starting on Wed01/30/22 at 0927, [...] Procedure), Routine niCARdipine (Cardene) (100 mcg/mL) dilution (BRAKE REPAIR MECHANIC) (CANCELED ) 0927 (Given - Provider: Vitaliy [...] (Intra-Procedure) documented in this encounter Care Teams Reflow Operator Relationship Specialty Start Date End Date Lovely Vicente MD PCP - General 04/16/[address] [place] [address] [address] [place] [address] documented as of this encounter
--- OUTSIDE RECORDS SUMMARY | 2022-02-25 08:09 | XMS_ITS | Encounter Summary ---
:1945 Author Organization [facility] Address [facility] [place] [address] Care Team Providers Name Role Phone Lovely Vicente MD Primary Care Provider Reason for Visit Reason Comments Prior Authorization Entresto 24-26mg tablets Encounter Details Date Type Department Care Team Description 02/20/2022 Specialty Pharmacy Pharmacy [place] [facility] Lamberto Smith Prior Authorization [facility] J (Entresto 24-26mg Drive tablets) [place] [id number] Social History Tobacco Use Types Packs/Day Years [...] Don Fatima Patient : 1945 Patient Address: [address] [place] [address] [place] [address] (home) Medication Name: ENTRESTO 24 MG-26 MG TABLET Medication ID: [id number] Patient Location: [facility] 4A Patient Location Comment: Medication Strength Frequency Requested: Entresto 24-26mg tablets / One tablet twice daily Qty/Day Supply: New Start: New to Therapy Diagnosis & ICD-10 Code: Chronic systolic heart failure, I50.22 Subscriber Insurance: Clinked [facility] Subscriber Insurance Comment: Fax: Physician: ARIK CARRERA Physician Comment : PA Status: NO PA REQUIRED Insurance mandated Pharmacy: Unknown Fillable at [facility]: Yes Insurance requirements/notes: None Copay: $119.01 (goes to coverage gap/odalys monteiro) Copay assistance: [employer] Copay assistance comment: If cost isn't affordable, then we'll suggest enrollment in the currently open [facility] Heart Failure zoila, which provides up to $1000 in copay assistance. If zoila closes, or doesn't work out, then the patient can attempt enrollment in the gettering operator assistance program, the [employer] (NPAF). At which point we'd refer to [facility] for assistance with enrollment. Pharmacy staff will be reaching out to the patient to inform them of their medication's approval by their insurance. If applicable, a pharmacist will speak with the patient to offer our specialty pharmacy services and to arrange delivery of their medication. Ge Wade 02/24/22 11:56 AM documented in this encounter Plan of Treatment Upcoming Encounters Date Type Specialty Care Team Description 03/26/2022 Office Visit Cardiology Vitaliy Nobles MD [facility] [address] [place], [place] [address] (Wo rk) 06/10/2022 Office Visit Dermatology Laura Scherer MD [facility] DR TE[address] GR-DERMAT [place], [place] [address] (Wo rk) documented as of this encounter Visit Diagnoses Not on filedocumented in this encounter Care Teams Innovation Manager Relationship Specialty Start Date End Date Lovely Vicente MD PCP - General 04/16/[address] [place] [address] documented as of this encounter
--- OUTSIDE RECORDS SUMMARY | 2022-02-25 08:10 | XMS_ITS | Encounter Summary ---
:1945 Author Organization [facility] [place] [address] Care Team Providers Name Role Phone Lovely Vicente MD Primary Care Provider Reason for Referral Consultation (Routine) - Closed Specialty Diagnoses / Referred By Contact Referred To Contact Procedures Cardiac Rehabilitation Diagnoses Acute HFrEF (heart failure with reduced ejection fraction) Janneth Padilla, Cardiac Rehab, [address] [place] CARDIOLOGY DEPT. [address] [place] [address] Referral ID Status Reason Start Date Expiration Date Visits V isits Requested Authorized [id number] Closed Consult, 12/12/2021 12/12/2022 36 36 Test & Treat Reason for Visit Auth/Cert Specialty Diagnoses / Procedures Referred By Contact Refer red To Contact Diagnoses NSTEMI Procedures emerg ipi Referral ID Status Reason Start Date Expiration Date Visits Requ ested Visits Authorized [id number] 1 1 Encounter Details Date Type Department Care Team Description 12/08/2021 - Hospital Encounter Intermediate Cardiac Iker Cuevas MD [facility] [place] [address] Non-ST elevation myocardial infarction ( NSTEMI); 12/12/2021 Care Unit Ifeanyi Rene MD [facility] [place] [address] ST elevation myocardial infarction (STEM I), unspecified artery; [facility] Acute HFr EF (heart failure with reduced ejection fraction) [place] [address] Social History Tobacco Use Types Packs/Day Years [...] Don Fatima Patient Age: 76 y.o. Language: Hebrew Race: White Ethnicity: Not nor Admit date: [...] Peter PA-C Kelly LaFlamme PA-C Cardiovascular Medicine [phone] Discharge Diagnoses (Hospital Problems) and Secondary Diagnoses [...] 3.75 guiding catheter and a 3.5 Fr [facility] [place] 20 Mhz using Manual pullback. Imaging was successful. Image quality was good. The ostial LCX showed moderate diffuse atherosclerotic plaque with scattered three quadrant calcification. Measurements were performed after pre-dilation. Post Intervention: The stent was well expanded and apposed. Intravascular Ultrasound was performed in the distal LM using a 7 Fr EBU 3.75 guiding catheter and a 3.5 Fr [facility] [place] 20 Mhz using Manual pullback. Imaging was [...] may require modification of this regimen. Consult [facility] [place]iology for questions. [...] vascular congestion and cardiomegaly. ?? TTE from [facility] 12/08/21 ? Prior Cardiac Studies: [...] prior thyroidectomy in 2012 who presented to [facility] with 1 week progressing breathlessness [...] 03/2021 with Liz Poole PA-C. ?? At [facility], respiratory distress with hypoxia 86% [...] mg PO daily in place of lasix. [place] is new for him and he will have a BMP checked on 12/[address] Cuevas spoke with the patient's and told her that him drinking too much water and diet drinks did not cause his MN. This is what his thought was the [...] to be ~$24/mo; affordable per patient. Post [facility] he was started on Eliquis. [...] appointments: During 8am-5pm Wednesday through Wednesday call [phone] to speak with a nurse in the cardiology clinic All other times call [phone] and ask to speak to the cardiology manager international trade analyst. Return to work: One week Driving: No driving for 48 hours after catheterization. Follow up Appointments: PCP Lovely Vicente MD [phone] to see patient at the end of December for annual check up. Patient to see Dr. Lorenzana at 1120 am at December 19 for a post hospital check up. Advertising Sales Assistant Dr. De Oliveira to see you in [facility]. Left a message for office to set a date and time. Please call [phone] Nobles to see the patient for a same day cath in 2-3 weeks from now. Office to call with a date and time. For questions please call [phone] Home oxygen therapy: N/A Arrangements for VNA/home care: none Future Appointments and Orders Future Orders Complete By Expires Basic Metabolic Panel (non-fasting) [LAB15 Custom] 12/19/2021 (Approximate) 12/12/2022 Process Instructions: INCLUDES: Calcium, BUN, Creat, GFR, Glucose, Lytes Scheduling Instructions: Comments: Questions: Referral to Cardiac Rehab [OCK542 Custom] As directed Process Instructions: If no [...] appointments: During 8am-5pm Wednesday through Wednesday call [phone] to speak with a nurse in the cardiology clinic All other times call [phone] and ask to speak to the cardiology manager international trade analyst. Return to work: One week Driving: No driving for 48 hours after catheterization. Follow up Appointments: PCP Lovely Vicente MD [phone] to see patient at the end of December for annual check up. Patient to see Dr. Lorenzana at 1120 am at December 19 for a post hospital check up. Advertising Sales Assistant Dr. De Oliveira to see you in [facility]. Left a message for office to set a date and time. Please call [phone] Nobles to see the patient for a same day cath in 2-3 weeks from now. Office to call with a date and time. 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 Tolerated procedure well. Home today at 11 [...] pulmonary vascular congestion and cardiomegaly. 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 Known CAD with hx of MN and CABG. DM. MARIA VICTORIA.ICM. ??? ASHD [...] was given Lasix 80mg IV x1 in slabber. Tolerated procedure well. Review of Systems: Review [...] TROPONINT 1.13* 0.92* 0.89* Pertinent Radiographic/Diagnostic Results: R/[facility] 12/10/21 Hemodynamics: Right Heart Pressures [...] pulmonary vascular congestion and cardiomegaly. TTE from [facility] 12/08/21 Prior Cardiac Studies: TTE [...] answered his questions. Iker Cuevas MD [facility] Total time spent on review of records prior to visit, face to face time with patient during visit, documentation, and coordination of care with other clinicians: 25 minutes. . Iker Cuevas MD - 12/10/2021 12:30 PM EDT Images from the original note were not included. 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 Admitted with 2 days of sob, hypoxemia, and + trop. Known CAD with hx of MN and CABG. DM. MARIA VICTORIA.ICM. ??? ASHD [...] was given Lasix 80mg IV x1 in slabber. Tolerated procedure well. Review of Systems: Review [...] ??? heparin (porcine) infusion 1,600 Units/hr (12/09/21 4647) PRN Meds:ipratropium-albuteroL, senna-docusate, bisacodyL, sodium chloride 0.9 [...] TROPONINT 1.13* 0.92* 0.89* Pertinent Radiographic/Diagnostic Results: R/[facility] 12/10/21 Hemodynamics: Right Heart Pressures [...] pulmonary vascular congestion and cardiomegaly. TTE from [facility] 12/08/21 Prior Cardiac Studies: TTE [...] Discussed with MD Migdalia Peter PA-C Pager #[phone] 12/10/2021 Cardiology Attending Note I have seen [...] and given pictures. Iker Cuevas MD [facility] Total time spent on review of records prior to visit, face to face time with patient during visit, documentation, and coordination of care with other clinicians: 35 minutes. Iker Cuevas MD - 12/09/2021 7:28 AM EDT Images from the original note were not included. 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 Admitted with 2 days of sob, hypoxemia, and + trop. Known CAD with hx of MN and CABG. DM. MARIA VICTORIA.ICM. ??? ASHD [...] pulmonary vascular congestion and cardiomegaly. TTE from [facility] 12/08/21 Prior Cardiac Studies: TTE [...] Discussed with MD Migdalia Peter PA-C Pager #[phone] 12/09/2021 Cardiology Attending Note I have seen and examined the patient. I agree with the findings above. Developed CHF early this am despite getting more iv lasix last evening. Feeling better now. INR > 2. Lungs still wet at base. Echo at [facility] showed EF 35% with mild mod MR slightly lower than last value here. -vit K 2.5 orally to facilitate correction of INR- this will take 12-24 hours to take effect -furosemide 80 mg iv now -postpone right and left heart cath until tomorrow given INR and ADHF -increase statin to achieve LDL < 70 -CPAP tonight Iker Cuevas MD [facility] Total time spent on review [...] + trop. Known CAD with hx of MN and CABG. DM. MARIA VICTORIA.ICM. ??? ASHD [...] prior thyroidectomy in 2012 who presented to [facility] with 1 week progressing breathlessness [...] visit 03/2021 with Liz Poole PA-C. At [facility], respiratory distress with hypoxia 86% [...] by Manny Mcknight MD at [facility] OR ??? PRO AMPUTATION FOOT, TRANSMETATARSAL Right 08/09/2017 AMPUTATION, TRANSMETATARSAL (WRVU 12.71) performed by Yonathan Smith MD at [facility] OR ??? PRO CABG, ARTERIAL, SINGLE N/A 07/07/2017 @CABG, USING ARTERIAL GRAFT;SINGLE ARTERIAL GRAFT (WRVU 33.75) performed by Yuan Retana MD at [facility] OR ??? PRO CABG, ARTERY-VEIN, TWO N/A 07/07/2017 @CABG, TWO VENOUS GRAFTS & ARTERIAL GRAFT (WRVU 7.93) performed by Yuan Retana MD at [facility] OR ??? PRO COLONOSCOPY, REMV LESN, SNARE 01/16/2014 COLONOSCOPY, POLYPECTOMY, REMOVAL LESION BY SNARE performed by Nohemi Jaimes MD at [facility] ENDOSCOPY ??? PRO DRESSING CHANGE UNDER ANESTHESIA Right 08/11/2017 (MSURG) DRESSING CHANGE (FOR OTHER THAN IVAN) UNDER ANES. (WRVU 0.86) performed by Lamar Smith MD at [facility] OR ??? PRO ENDOSCOPY W/VIDEO-ASST VEIN HARVEST, CABG Right 07/07/2017 ENDOSCOPIC HARVEST VEIN(S) FOR CABG (WRVU 0.31) performed by Yuan Retana MD at [facility] OR ??? PRO THYROIDECTOMY 03/28/2013 THYROIDECTOMY, TOTAL OR COMPLETE performed by Manny Mcknight MD at [facility] MAIN OR Significant Family History: [...] (H) 65 - 199 mg/dL Labs at [facility] 12/08/2021-troponin I 8004 (UN L [...] Monitor for ADRs. Trend troponins. Admission EKG. [facility] 12/09; consented. TTE. Telemetry monitoring, [...] code #Diet-carb control; n.p.o. after midnight for [facility] #DVT prophy- heparin infusion #GI prophy- PPI Discussed with MD Morgan Peter PA-C APP2 pager [phone] 12/08/2021 Cardiology Attending Note I have seen [...] is type 1 due to graft or [place] coronary stenosis vs acute injury from CHF. 3. PAF: currrently in NSR. Have replaced warfarin with heparin 4. PAD: stable 5. DM: stable 6. CKD: will monitor and minimize contrast. Pt very appreciative of Dr. Yuan Retana's care in 2018. Will let him know patient is here. Iker Cuevas MD [facility] documented in this encounter Miscellaneous Notes [...] Type: *No Product type* / Secondary Insurance: [employer] Prescription Coverage: Yes This plan was formulated [...] cath without complications. Migdalia Parker PA-C Pager #[phone] 12/10/2021 Initial Assessments - Nick Georges RN [...] COVID test: Lab Results Component Value Date [id number] Not Detected 12/08/2021 Past medical History: Past [...] spouse would be surrogate decision maker per [place] surrogate decision making law. (Only good for 180 days) Any patient receiving care at [facility] must abide by [place] law. The hierarchy for surrogate decision making [...] (i) The agent with financial power of dip painter or a conservator appointed in accordance with [...] - standard, cane - straight Home Address: [address] [place] [address] [place] [address] Social & Family Supports: All names listed below confirmed with patient as current and correct Extended Emergency Contact Information Primary Emergency Contact: Kisha Fatima Address: [address] [place] [address] [place] [address] [facility] Mobile Relation: Spouse Secondary Emergency Contact: Elba Swenson Address: [address] [place] Relation: Child Current Care Provided [...] type* / Secondary Insurance: [employer] [facility] Prescription Coverage: Yes Preferred Pharmacy: [facility] [address] [id number] - [place], [place] - [address] [place] [id number] Status: Patient is a : unable to assess Primary Care Provider: Lovely Vicente MD [phone] Patient/Caregiver Goals of Treatment: Get out of here Potential Needs for Transition of Care: none Agency Referrals: none patient has used [facility] in the past Transportation: no concerns Transportation Anticipated: family or friend will provide Concerns to be Addressed: patient refuses services, discharge planning Assessment: Patient is admitted to [facility] Service pager [phone] for 76 y.o.??male??with h/o??CAD s/p 3vCABG (THOMPSNO-LAD, sequential SVG-OM1-D1) 07/07/2017 following late STEMI, ischemic [...] status on current unit. Nick Georges RN machine scallop cutter, Office of Care Management Pager: [phone] Brief Op Note - Vitaliy Nobles MD - 12/10/2021 8:31 AM EDT Images from the original note were not included. [facility] [place] [address] CORONARY ANGIOGRAM AND PERCUTANEOUS CORONARY INTERVENTION REPORT Patient: Don Fatima : 1945 MR number: [id number] Date of Service: 12/10/2021 Asbestos Brake Lining Finisher: Vitaliy Nobles MD Fellow: [place]o [place] MD [...] management and to provide a review of extermination supervisor diabetes care. Diabetes History: Don Fatima has had diabetes for 10 years. He has been on insulin for the last several years andis managed by his PCP. Lives in [place], [place] with his . States that he [...] Hold] heparin (porcine) infusion 1,600 Units/hr (12/09/21 5057) PRN: [MAR Hold] ipratropium-albuteroL, [MAR Hold] senna-docusate, [...] your patient Desirae Johnie QUINONES Endocrinology Pager [phone] 70 minutes of this 80 minute visit [...] OUTCOME EVALUATION: ongoing Consult Note - Landon Pineda RN - 12/09/2021 5:23 AM EDT Life [...] + trop. Known CAD with hx of MN and CABG. DM. MARIA VICTORIA.ICM. ??? ASHD [...] to remain on Med/Surg floor, please page [phone] for any further questions or concerns. LANDON PINEDA RN 5:23 AM December 09, 2021 Plan [...] for further details. STEPHANIE Rebolledo 12/08/2021 Pager [phone] documented in this encounter Plan of Treatment Upcoming Encounters Date Type Specialty Care Team Description 03/26/2022 Office Visit Cardiology Vitaliy Nobles MD [facility] CARDIOLOGY [place], [place] [address] (Wo rk) 06/10/2022 Office Visit Dermatology Laura Scherer MD [facility] [address] [place] [address] (Wo rk) Scheduled Referrals Name [...] POC Glucose 215 (H) 65 - 199 [facility] mg/dL [facility] Comment: Supplemental ranges: <140 mg/dL before meals <180 mg/dL all other times of the day Specimen Anatomical Collection Method Collection Time Receive d Time (Source) Location / / Volume Laterality Blood 12/12/2021 7:42 AM 7:42 EDT AM EDT Ifeanyi Truong MD POINT OF CARE TEST ORDERABLE S Performing Organization Address City/State/[place] [address] (ABNORMAL) Differential, Automated (12/12/2021 4:51 AM EDT) athologist Signature Neutrophils % 75.4 % [facility]ORY Neutr Abs (ANC) 5.95 1.70 - [facility] 6.10 [facility] x10(3)/[facility] LABORATORY Lymphocytes % 12.2 % [facility] Lymphocytes Abs 1.0 0.9 - 3.2 [facility] x10(3)/[facility] LABORATORY Monocytes % 9.5 % [facility] Monocyte Abs 0.8 0.3 - 0.9 [facility] x10(3)/[facility] LABORATORY Eosinophils % 1.8 % [facility] Eosinophils Abs 0.1 0.0 - 0.4 [facility] x10(3)/[facility] LABORATORY Basophils % 0.5 % [facility] Basophils Abs 0.0 0.0 - 0.1 [facility] x10(3)/[facility] LABORATORY Immature Gran % 0.60 % [...] Organization Address City/State/[place] [address] (ABNORMAL) Hemogram (12/12/2021 4:51 AM EDT) Analysis Performed At Patho logist Time Signature WBC 7.9 4.0 - 9.5 [facility] x10(3)/[facility] LABORATORY RBC 4.19 (L) 4.58 - [facility] 5.54 [facility] x10(6)/[facility] LABORATORY Hemoglobin 12.1 (L) 13.7 - [facility] 16.5 g/dL [facility] Hematocrit 36.7 (L) 40.5 - [facility] 48.5 % [facility] MCV 87.6 82.9 - [facility] 93.1 [facility]ORATORY MCH 28.9 27.5 - [facility] 32.1 pg [facility] MCHC 33.0 32.0 - [facility] 35.7 g/dL [facility] Platelets 231 145 - 357 [facility] x10(3)/[facility] LABORATORY RDWSD 47.2 (H) 36.0 - [facility] 45.0 [facility] LABORATORY RDWCV 14.6 (H) 11.4 - [facility] 13.8 % [facility] MPV 9.5 7.6 - 12.9 [facility] LABORATORY nRBC % Auto 0.0 % [facility]ORY nRBC Abs Auto 0.000 0.000 - [facility] 0.000 [facility] x10(3)/[facility] LABORATORY Specimen Anatomical Collection Method Collection Time Receive d Time (Source) Location / / Volume Laterality Blood 12/12/2021 4:51 AM 2 5:06 EDT AM EDT Resulting Agency Comment Spec In Lab Bijan Sun MD HEMATOLOGY ORDERABLES Performing Organization Address City/[facility] [place] [address] (ABNORMAL) Prothrombin Time (12/12/2021 4:51 AM EDT) P athologist Signature PT 14.9 (H) 9.4 - 12.5 [facility] LABORATORY INR 1.3 [facility] MD HEMATOLOGY ORDERABLES Performing Organization Address City/[facility]/[place] [address] (ABNORMAL) BMP w/fasting Glucose (12/12/2021 4:51 AM EDT) P athologist Signature Glucose 152 (H) 65 - 99 [facility] Fasting mg/dL [facility] Comment: ?Fasting* Glucose Interpretive C [...] of Diabetes Mellitus, Position Statement from the [place] [employer]. ??Diabete s Care, Volume 33, Supplement 1, Jul 2009 BUN 52 (H) 10 - 20 mg/dL [facility] Creatinine 1.72 (H) 0.80 - 1.50 mg/dL [facility] Sodium 143 135 - 145 mmol/L [facility] Potassium 3.9 3.5 - 5.0 mmol/L [facility] [...] LABORATORY Calcium 8.9 8.5 - 10.5 mg/dL [facility] Estimated GFR 38 (L) [...] MD CHEMISTRY ORDERABLES Performing Organization Address City/[facility]/[place] [address] Magnesium (12/12/2021 4:51 AM EDT) athologist Signature Magnesium 1.02 0.69 - 1.07 [facility] mmol/L [facility] Specimen Anatomical Collection Method Collection Time Receive d Time (Source) Location / / Volume Laterality Blood 12/12/2021 4:51 AM 2 5:06 EDT AM EDT Resulting Agency Comment Spec In Lab Iker Cuevas MD CHEMISTRY ORDERABLES Performing Organization Address City/[facility]/[place] [address] POCT Glucose (12/12/2021 3:43 AM EDT) athologist Signature POC Glucose 138 65 - 199 [facility] mg/dL [facility] Comment: Supplemental ranges: <140 mg/dL before meals <180 mg/dL all other times of the day Specimen Anatomical Collection Method Collection Time Receive d Time (Source) Location / / Volume Laterality Blood 12/12/2021 3:43 AM 2 3:43 EDT AM EDT Iker Cuevas MD POINT OF CARE TEST ORDERABLE S Performing Organization Address City/[facility]/ZIP Code Phon e Number [address] POCT Glucose (12/11/2021 11:44 PM EDT) athologist Signature POC Glucose 124 65 - 199 [facility] SU mg/dL [facility] Comment: Supplemental ranges: <140 mg/dL before meals <180 mg/dL all other times of the day Specimen Anatomical Collection Method Collection Time Receive d Time (Source) Location / / Volume Laterality Blood 12/11/2021 11:44 12/11/2021 PM EDT 11:44 PM EDT Iker Cuevas MD POINT OF CARE TEST ORDERABLE S Performing Organization Address City/[facility]/[place] [address] (ABNORMAL) POCT Glucose (12/11/2021 8:12 PM EDT) athologist Signature POC Glucose 200 (H) 65 - 199 [facility] mg/dL [facility] Comment: Supplemental ranges: <140 mg/dL before meals <180 mg/dL all other times of the day Specimen Anatomical Collection Method Collection Time Receive d Time (Source) Location / / Volume Laterality Blood 12/11/2021 8:12 PM 2 8:12 EDT PM EDT Iker Cuevas MD POINT OF CARE TEST ORDERABLE S Performing Organization Address City/[facility]/[place] [address] (ABNORMAL) POCT Glucose (12/11/2021 6:50 PM EDT) athologist Signature POC Glucose 245 (H) 65 - 199 [facility] mg/dL [facility] Comment: Supplemental ranges: <140 mg/dL before meals <180 mg/dL all other times of the day Specimen Anatomical Collection Method Collection Time Receive d Time (Source) Location / / Volume Laterality Blood 12/11/2021 6:50 PM 2 6:50 EDT PM EDT Iker Cuevas MD POINT OF CARE TEST ORDERABLE S Performing Organization Address City/State/[place] [address] (ABNORMAL) POCT Glucose (12/11/2021 4:00 PM EDT) P athologist Signature POC Glucose 383 (H) 65 - 199 [facility] mg/dL [facility] Comment: Supplemental ranges: <140 mg/dL before meals <180 mg/dL all other times of the day Specimen Anatomical Collection Method Collection Time Receive d Time (Source) Location / / Volume Laterality Blood 12/11/2021 4:00 PM 4:00 EDT PM EDT Iker Cuevas MD POINT OF CARE TEST ORDERABLE S Performing Organization Address City/State/ZIP Code Phon e Number [address] (ABNORMAL) POCT Glucose (12/11/2021 12:01 PM EDT) P athologist Signature POC Glucose 342 (H) 65 - 199 [facility] mg/dL [facility] Comment: Supplemental ranges: <140 mg/dL before meals <180 mg/dL all other times of the day Specimen Anatomical Collection Method Collection Time Receive d Time (Source) Location / / Volume Laterality Blood 12/11/2021 12:01 12/11/2021 PM EDT 12:01 PM EDT Iker Cuevas MD POINT OF CARE TEST ORDERABLE S Performing Organization Address City/State/[place] [address] COVID-19 PCR (12/11/2021 10:13 AM EDT) Patholo gist Method Time Signature SARS-CoV-2 Not Detected Not Detected [facility] Comment: This result should [...] of COVID-19 is performed using the [employer] RONNA S-CoV-2 Assay as authorized by the FDA Emergency Use Authorization (EUA). This EUA assay is intended for In-vitro Diagnostic (IVD) use with respiratory sp ecimens such as nasopharyngeal swabs collected from individuals during the ac diomede phase of infection. This assay is performed based on the instructions for use provided by [employer] and additional guidance provided by CDC and FDA. Testing is performed in the Clinical Genomics and Advanced Technolog y Laboratory within the Department of Pathology and Laboratory Medicine at [facility], certified under the Clinical Laboratory [...] fact sheets at the following FDA website: https://www.fda.gov/medical-devices/yulqocbmfmg-enajwuq-9567-hqrtt-46-bypngahzt- kka-htpoaupaeqokpe-ypgclmf-devices/essvb-jvtlzotupqf-jlzz SARS-Cov-2 RNA Source [employer] Swab [facility] Specimen (Source) Anatomical Collection Method Collection Time Re ceived Time Location / / Volume Laterality Nasopharyngeal Swab 12/11/2021 10:13 11/23 AM EDT 11:16 AM EDT Comment: Symptoms->Surveillance Resulting Agency Comment Spec In Lab Iker Cuevas MD MICROBIOLOGY - GENERAL ORDER [place] Performing Organization Address City/[facility]/[place] [address] POCT Glucose (12/11/2021 7:34 AM EDT) athologist Signature POC Glucose 198 65 - [facility] Comment: Supplemental ranges: <140 mg/dL before meals <180 mg/dL all other times of the day Specimen Anatomical Collection Method Collection Time Receive d Time (Source) Location / / Volume Laterality Blood 12/11/2021 7:34 AM 2 7:34 EDT AM EDT Iker Cuevas MD POINT OF CARE TEST ORDERABLE S Performing Organization Address City/[facility]/[place] [address] (ABNORMAL) POCT Glucose (12/11/2021 5:07 AM EDT) P athologist Signature POC Glucose 208 (H) 65 - 199 [facility]dL [facility] Comment: Supplemental ranges: <140 mg/dL before meals <180 mg/dL all other times of the day Specimen Anatomical Collection Method Collection Time Receive d Time (Source) Location / / Volume Laterality Blood 12/11/2021 5:07 AM 2 5:07 EDT AM EDT Iker Cuevas MD POINT OF CARE TEST ORDERABLE S Performing Organization Address City/[facility]/[place] [address] (ABNORMAL) Differential, Automated (12/11/2021 4:28 AM EDT) [facility] gist Method Time Signature Neutrophils % 79.6 % [facility] Neutr Abs (ANC) 7.01 (H) 1.70 - [facility] 6.10 [facility] x10(3)/[facility] L LABORATORY Lymphocytes % 9.1 % [facility] Lymphocytes Abs 0.8 (L) 0.9 - 3.2 [facility] x10(3)/[facility] LABORATORY Monocytes % 9.2 % [facility] Monocyte Abs 0.8 0.3 - 0.9 [facility] x10(3)/[facility] LABORATORY Eosinophils % 1.3 % [facility] Eosinophils Abs 0.1 0.0 - 0.4 [facility] x10(3)/[facility] LABORATORY Basophils % 0.5 % [facility] Basophils Abs 0.0 0.0 - 0.1 [facility] x10(3)/[facility] LABORATORY Immature Gran % 0.30 % [...] Melisa Gran Abs 0.03 0.00 - 0.04 x10(3)/[facility] Specimen Anatomical Collection Method Collection Time Receive d Time (Source) Location / / Volume Laterality Blood 12/11/2021 4:28 AM 4:37 EDT AM EDT Resulting Agency Comment Spec In Lab Bijan Sun MD HEMATOLOGY ORDERABLES Performing Organization Address City/State/[place] [address] (ABNORMAL) Hemogram (12/11/2021 4:28 AM EDT) Analysis Performed At Patho logist Time Signature WBC 8.8 4.0 - 9.5 [facility] x10(3)/[facility] LABORATORY RBC 4.15 (L) 4.58 - [facility] 5.54 [facility] x10(6)/[facility] LABORATORY Hemoglobin 11.9 (L) 13.7 - [facility] 16.5 g/dL [facility] Hematocrit 36.9 (L) 40.5 - [facility] 48.5 % [facility] MCV 88.9 82.9 - [facility] 93.1 [facility] LABORATORY MCH 28.7 27.5 - [facility] 32.1 pg [facility] MCHC 32.2 32.0 - [facility] 35.7 g/dL [facility] Platelets 211 145 - 357 [facility] x10(3)/[facility] LABORATORY RDWSD 48.3 (H) 36.0 - [facility] SU 45.0 [facility] LABORATORY RDWCV 14.8 (H) 11.4 - [facility] SU 13.8 % [facility] MPV 9.6 7.6 - 12.9 [facility] LABORATORY nRBC % Auto 0.0 % [facility] LAB[facility]ORY nRBC Abs Auto 0.000 0.000 - [facility] 0.000 [facility] x10(3)/[facility] LABORATORY Specimen Anatomical Collection Method Collection Time Receive d Time (Source) Location / / Volume Laterality Blood 12/11/2021 4:28 AM 2 4:37 EDT AM EDT Resulting Agency Comment Spec In Lab Bijan Sun MD HEMATOLOGY ORDERABLES Performing Organization Address City/State/[place] [address] (ABNORMAL) Prothrombin Time (12/11/2021 4:28 AM EDT) P athologist Signature PT 17.7 (H) 9.4 - 12.5 [facility] LABORATORY INR 1.6 [facility] Organization Address City/State/[place] [address] (ABNORMAL) BMP w/fasting Glucose (12/11/2021 4:28 AM EDT) P athologist Signature Glucose 207 (H) 65 - 99 [facility] Fasting mg/dL [facility] Comment: ?Fasting* Glucose Interpretive C [...] of Diabetes Mellitus, Position Statement from the [place] [employer]. ??Diabete s Care, Volume 33, Supplement 1, Jul 2009 BUN 49 (H) 10 - 20 mg/dL [facility] Creatinine 1.43 0.80 - 1.50 mg/dL [facility] Sodium 142 135 [...] mg/dL [facility] Estimated GFR 48 (L) [...] Organization Address City/State/ZIP Code Phon e Number [address] Magnesium (12/11/2021 4:28 AM EDT) P athologist Signature Magnesium 1.04 0.69 - 1.07 [facility] mmol/L [facility] Specimen Anatomical Collection Method Collection Time Receive d Time (Source) Location / / Volume Laterality Blood 12/11/2021 4:28 AM 2 4:37 EDT AM EDT Resulting Agency Comment Spec In Lab Iker Cuevas MD CHEMISTRY ORDERABLES Performing Organization Address City/State/[place] [address] POCT Glucose (12/11/2021 3:58 AM EDT) P athologist Signature POC Glucose 189 65 - 199 [facility] mg/dL [facility] Comment: Supplemental ranges: <140 mg/dL before meals <180 mg/dL all other times of the day Specimen Anatomical Collection Method Collection Time Receive d Time (Source) Location / / Volume Laterality Blood 12/11/2021 3:58 AM 2 3:58 EDT AM EDT Iker Cuevas MD POINT OF CARE TEST ORDERABLE S Performing Organization Address City/[facility]/[place] [address] (ABNORMAL) POCT Glucose (12/10/2021 11:45 PM EDT) athologist Signature POC Glucose 205 (H) 65 - 199 [facility] mg/dL [facility] Comment: Supplemental ranges: <140 mg/dL before meals <180 mg/dL all other times of the day Specimen Anatomical Collection Method Collection Time Receive d Time (Source) Location / / Volume Laterality Blood 12/10/2021 11:45 12/10/2021 PM EDT 11:45 PM EDT Iker Cuevas MD POINT OF CARE TEST ORDERABLE S Performing Organization Address City/[facility]/[place] [address] (ABNORMAL) POCT Glucose (12/10/2021 7:54 PM EDT) athologist Signature POC Glucose 225 (H) 65 - 199 [facility] mg[facility]dL [facility] Comment: Supplemental ranges: <140 mg/dL before meals <180 mg/dL all other times of the day Specimen Anatomical Collection Method Collection Time Receive d Time (Source) Location / / Volume Laterality Blood 12/10/2021 7:54 PM 2 7:54 EDT PM EDT Iker Cuevas MD POINT OF CARE TEST ORDERABLE S Performing Organization Address City/[facility]/[place] [address] Potassium (12/10/2021 7:46 PM EDT) athologist Signature Potassium 4.2 3.5 - 5.0 [facility]/L [facility] Comment: Please note: ??Patients with [...] Organization Address City/State/[place] [address] (ABNORMAL) Basic Metabolic Panel (non-fasting) (12/10/2021 6:12 PM EDT) P athologist Signature Glucose Lvl 246 (H) 65 - 199 [facility] mg/dL [facility] Comment: Diabetes: >=200 mg/dL plus symp toms BUN 50 (H) 10 - 20 mg/dL [facility] Creatinine 1.39 0.80 - 1.50 mg/dL [facility] Sodium 138 135 - 145 mmol/L [facility] Potassium Not Perf 3.5 - 5.0 [facility] Comment: Unable to quantitate due [...] Calcium 8.3 (L) 8.5 - 10.5 mg/dL [facility] Estimated GFR 49 (L) [...] MD CHEMISTRY ORDERABLES Performing Organization Address City/[facility]/[place] [address] POCT Glucose (12/10/2021 4:59 PM EDT) athologist Signature POC Glucose 158 65 - 199 [facility] mg/dL [facility] Comment: Supplemental ranges: <140 mg/dL before meals <180 mg/dL all other times of the day Specimen Anatomical Collection Method Collection Time Receive d Time (Source) Location / / Volume Laterality Blood 12/10/2021 4:59 PM 2 4:59 EDT PM EDT Iker Cuevas MD POINT OF CARE TEST ORDERABLE S Performing Organization Address City/[facility]/[place] [address] (ABNORMAL) POCT Glucose (12/10/2021 12:43 PM EDT) athologist Signature POC Glucose 241 (H) 65 - 199 [facility] mg/dL [facility] Comment: Supplemental ranges: <140 mg/dL before meals <180 mg/dL all other times of the day Specimen Anatomical Collection Method Collection Time Receive d Time (Source) Location / / Volume Laterality Blood 12/10/2021 12:43 12/10/2021 PM EDT 12:43 PM EDT Iker Cuevas MD POINT OF CARE TEST ORDERABLE S Performing Organization Address City/State/ZIP Code Phon e Number [place] [id number] EKG 12 Lead (12/10/2021 11:17 AM EDT) Component Value Ref Range Test Analysis Performed Pathologis t Method Time At Signature Ventricular rate 62 BPM MUSE SYSTEM Atrial Rate 62 BPM MUSE SYSTEM P-R Interval 142 ms MUSE SYSTEM QRS Duration 100 ms MUSE SYSTEM Q-T Interval 434 ms MUSE SYSTEM QTC Calculated 440 ms MUSE SYSTEM (Bezet) Calculated P [place] 34 degrees MUSE SYSTEM Calculated R [place] -39 degrees MUSE SYSTEM Calculated T [place] 92 degrees MUSE SYSTEM INTERPRETATION Normal sinus [...] 12:04 PM E DT ?[facility] ? Cardiac Cathete rization/Intervention Report ? Patient Name: Don Fatima. ? Procedure Date: 12/10/2021 ? A #: [id number] ? Primary Physician: Nobles, Vitaliy P ? Case #: [id number] ? File Name: [id number] ? Catheterization Order Number: [id number] ? [facility] ? Final Report [place], [place] ? Patient Name: ? Don E. Stewa rt ? ID#: ?[id number] ? : ?1945 ? Procedure Date: ? December 10, 2021 ? Case #: ? [id number] ? Room: ? 1 ? Case Physician: [...] III. e [facility] clinical frailty scale is 5: Mildly ?Frail. [...] The indication for ?the slabber visit is ACS great er than 24 [...] ?3.75 guiding catheter and a 3.5 Fr [facility] [place] 20 Mhz using Manual ?pullback. ??Imaging was success ful. ??Image quality was good. ??The ostial ?LCX showed moderate diffuse ath erosclerotic plaque with scattered three ?quadrant calcification. ??Measu rements were performed after pre- dilation. ?Post Intervention: The stent truong s well expanded and apposed. ?Intravascular Ultrasound was pe rformed in the distal LM using a 7 Fr EBU ?3.75 guiding catheter and a 3.5 Fr [facility] [place] 20 Mhz using Manual ?pullback. ??Imaging was [...] require ?modification of this regimen. C [place]ult [facility] [place]iology for ?questions. ?The 1 year bleeding risk as nusrat culated by the PRECISE DAPT score is High ?risk. ?High Bleeding Risk - Anticoagul ation and DAPT: ?- ??Assess ischemic and bleedin g risks using validated risk predictors ?(e.g. CHADS2-VASC, HAS-BLED, OR ECISE DAPT, DAPT Score) ?- ??Keep anticoagulant [...] R PDA PCI. ?The attending physician was en brock for the entire procedure. ?Dr. Vitaliy Nobles [...] Nobles MD - 01/14/[address] [facility] Cardiac Catheterization/Intervention Re port Patient Name: Don Fatima Procedure Date: 12/10/2021 A #: [id number] Primary Physician: Vitaliy Nobles Case #: [id number] File Name: [id number] Catheterization Order Number: [id number] [facility] Final Report [place], [place] Patient Name: Don Fatima ID#: [...] e was Urgent. The indication for the slabber visit is ACS greater than 24 hrs [...] and a 3.5 Fr [facility] [place] 20 Mhz using Manual pullback. Imaging was [...] and a 3.5 Fr [facility] [place] 20 Mhz using Manual pullback. Imaging was [...] Dr. Vitaliy Nobles M.D. was present octavia gr the moderate sedation intraservice time as documented [...] MD CARDIAC CATH ORDERABLES Performing Organization Address City/[facility]/ZIP Code Phon e Number CARDIOMAC SYSTEM (ABNORMAL) POCT Glucose (12/10/2021 10:30 AM EDT) athologist Signature POC Glucose 262 (H) 65 - 199 [facility] mg/dL [facility] Comment: Supplemental ranges: <140 mg/dL before meals <180 mg/dL all other times of the day Specimen Anatomical Collection Method Collection Time Receive d Time (Source) Location / / Volume Laterality Blood 12/10/2021 10:30 12/10/2021 AM EDT 10:30 AM EDT Iker Cuevas MD POINT OF CARE TEST ORDERABLE S Performing Organization Address City/[facility]/[place] [address] (ABNORMAL) POCT Glucose (12/10/2021 9:48 AM EDT) athologist Signature POC Glucose 279 (H) 65 - 199 [facility] mg/dL [facility] Comment: Supplemental ranges: <140 mg/dL before meals <180 mg/dL all other times of the day Specimen Anatomical Collection Method Collection Time Receive d Time (Source) Location / / Volume Laterality Blood 12/10/2021 9:48 AM 9:48 EDT AM EDT Iker Cueavs MD POINT OF CARE TEST ORDERABLE S Performing Organization Address City/[facility]/[place] [address] (ABNORMAL) POCT Glucose (12/10/2021 9:07 AM EDT) athologist Signature POC Glucose 268 (H) 65 - 199 [facility] mg/dL [facility] Comment: Supplemental ranges: <140 mg/dL before meals <180 mg/dL all other times of the day Specimen Anatomical Collection Method Collection Time Receive d Time (Source) Location / / Volume Laterality Blood 12/10/2021 9:07 AM 2 9:07 EDT AM EDT Iker Cuevas MD POINT OF CARE TEST ORDERABLE S Performing Organization Address City/State/[place] [address] (ABNORMAL) Point of Care Blood Gas Historical (12/10/2021 9:04 AM EDT) Patholo gist Method Time Signature POC pH 7.40 7.35 - [facility] 7.45 [facility] POC PCO2 40 35 - 45 [facility] mmHg [facility] POC PO2 63 (L) 85 - 104 [facility] LABORATORY POC Base Excess 0.0 -3.0 - 3.0 [facility] K mmol/L [facility] POC HCO3 24.8 20.0 - [facility] 26.0 [facility] POC Sodium 143 135 - 145 [facility] mmol/L [facility] POC Potassium 3.7 3.5 - 5.0 [facility] mmol/L [facility] POC Ionized Ca 1.07 (L) 1.15 - [facility] 1.33 [facility] POC Hematocrit 30.0 (L) 40.0 - [facility] 51.0 % [facility] POC Calc Hgb 10.2 (L) 13.7 - [facility] 17.5 g/dL [facility] Comment: The calculation of hemoglobin f rom hematocrit assumes a normal MCHC. POC Bgas Loc CC LAB [facility] Specimen Anatomical Collection Method Collection Time Receive d Time (Source) Location / / Volume Laterality Blood 12/10/2021 9:04 AM 2 EDT 12:00 PM EDT Ifeanyi Truong MD CHEMISTRY ORDERABLES Performing Organization Address City/State/[place] [address] (ABNORMAL) POCT Glucose (12/10/2021 7:19 AM EDT) P athologist Signature POC Glucose 274 (H) 65 - 199 [facility] mg/dL [facility] Comment: Supplemental ranges: <140 mg/dL before meals <180 mg/dL all other times of the day Specimen Anatomical Collection Method Collection Time Receive d Time (Source) Location / / Volume Laterality Blood 12/10/2021 7:19 AM 2 7:19 EDT AM EDT Iker Cuevas MD POINT OF CARE TEST ORDERABLE S Performing Organization Address City/[facility]/ZIP Code Phon e Number [address] Heparin (unfractionated) Level (12/10/2021 4:25 AM EDT) athologist Signature Heparin UFH 0.69 IU/mL [facility] Comment: Heparin (anti-Xa) levels should be [...] Organization Address City/State/ZIP Code Phon e Number [address] (ABNORMAL) Differential, Automated (12/10/2021 4:25 AM EDT) Patholo gist Method Time Signature Neutrophils % 79.8 % [facility] Neutr Abs (ANC) 7.47 (H) 1.70 - [facility] 6.10 [facility] x10(3)/[facility] L LABORATORY Lymphocytes % 10.6 % [facility]OR[facility]ORY Lymphocytes Abs 1.0 0.9 - 3.2 [facility] x10(3)/[facility] LABORATORY Monocytes % 8.4 % [facility]ORATORY Monocyte Abs 0.8 0.3 - 0.9 [facility] x10(3)/[facility] LABORATORY Eosinophils % 0.6 % [facility]ORY Eosinophils Abs 0.1 0.0 - 0.4 [facility] x10(3)/[facility] LABORATORY Basophils % 0.2 % [facility]ORY Basophils Abs 0.0 0.0 - 0.1 [facility] x10(3)/[facility] LABORATORY Immature Gran % 0.40 % [...] Melisa Gran Abs 0.04 0.00 - 0.04 x10(3)/[facility] LABORATORY Specimen Anatomical Collection Method Collection Time Receive d Time (Source) Location / / Volume Laterality Blood 12/10/2021 4:25 AM 2 4:34 EDT AM EDT Resulting Agency Comment Spec In Lab Morgan BROWN HEMATOLOGY ORDERABLES Performing Organization Address City/State/[place] [address] (ABNORMAL) Hemogram (12/10/2021 4:25 AM EDT) Analysis Performed At Patho logist Time Signature WBC 9.4 4.0 - 9.5 [facility] x10(3)/[facility] LABORATORY RBC 3.81 (L) 4.58 - [facility] 5.54 [facility] x10(6)/[facility] LABORATORY Hemoglobin 11.1 (L) 13.7 - [facility] 16.5 g/dL [facility] Hematocrit 34.0 (L) 40.5 - [facility] 48.5 % [facility] MCV 89.2 82.9 - [facility] 93.1 [facility] LABORATORY MCH 29.1 27.5 - [facility] 32.1 pg [facility] MCHC 32.6 32.0 - [facility] 35.7 g/dL [facility] Platelets 183 145 - 357 [facility] x10(3)/[facility] LABORATORY RDWSD 49.9 (H) 36.0 - [facility] 45.0 [facility] LABORATORY RDWCV 15.2 (H) 11.4 - [facility] SU 13.8 % [facility] MPV 9.8 7.6 - 12.9 [facility] LABORATORY nRBC % Auto 0.0 % [facility] LABORATORY nRBC Abs Auto 0.000 0.000 - [facility] 0.000 [facility] x10(3)/[facility] LABORATORY Specimen Anatomical Collection Method Collection Time Receive d Time (Source) Location / / Volume Laterality Blood 12/10/2021 4:25 AM 4:34 EDT AM EDT Resulting Agency Comment Spec In Lab Morgan BROWN HEMATOLOGY ORDERABLES Performing Organization Address City/State/[place] [address] (ABNORMAL) Prothrombin Time (12/10/2021 4:25 AM EDT) P athologist Signature PT 20.0 (H) 9.4 - 12.5 [facility] LABORATORY INR 1.7 [facility] [...] Organization Address City/State/[place] [address] (ABNORMAL) BMP w/fasting Glucose (12/10/2021 4:25 AM EDT) athologist Signature Glucose 210 (H) 65 - 99 [facility] Fasting mg/dL [facility] Comment: ?Fasting* Glucose Interpretive C [...] of Diabetes Mellitus, Position Statement from the [place] [employer]. ??Diabete s Care, Volume 33, Supplement 1, Jul 2009 BUN 54 (H) 10 - 20 mg/dL [facility] Creatinine 1.52 (H) 0.80 - 1.50 mg/dL [facility] LABORATORY Sodium 140 135 - 145 mmol/L [facility] Potassium 3.9 3.5 - 5.0 mmol/L [facility] [...] Calcium 8.0 (L) 8.5 - 10.5 mg/dL [facility] Estimated GFR 44 (L) [...] Organization Address City/State/[place] [address] Magnesium (12/10/2021 4:25 AM EDT) P athologist Signature Magnesium 0.95 0.69 - 1.07 [facility] mmol/L [facility] Specimen Anatomical Collection Method Collection Time Receive d Time (Source) Location / / Volume Laterality Blood 12/10/2021 4:25 AM 2 4:34 EDT AM EDT Resulting Agency Comment Spec In Lab Iker Cuevas MD CHEMISTRY ORDERABLES Performing Organization Address City/[facility]/ZIP Code Phon e Number [address] POCT Glucose (12/10/2021 1:58 AM EDT) P athologist Signature POC Glucose 164 65 - 199 [facility] mg/dL [facility] Comment: Supplemental ranges: <140 mg/dL before meals <180 mg/dL all other times of the day Specimen Anatomical Collection Method Collection Time Receive d Time (Source) Location / / Volume Laterality Blood 12/10/2021 1:58 AM 2 1:58 EDT AM EDT Iker Cuevas MD POINT OF CARE TEST ORDERABLE S Performing Organization Address City/[facility]/[place] [address] (ABNORMAL) POCT Glucose (12/09/2021 9:02 PM EDT) athologist Signature POC Glucose 313 (H) 65 - 199 [facility] mg/dL [facility] Comment: Supplemental ranges: <140 mg/dL before meals <180 mg/dL all other times of the day Specimen Anatomical Collection Method Collection Time Receive d Time (Source) Location / / Volume Laterality Blood 12/09/2021 9:02 PM 2 9:02 EDT PM EDT Iker Cuevas MD POINT OF CARE TEST ORDERABLE S Performing Organization Address City/State/ZIP Code Phon e Number [place] [id number] Heparin (unfractionated) Level (12/09/2021 7:30 PM EDT) athologist Signature Heparin UFH 0.48 IU/mL [facility] Comment: Heparin (anti-Xa) levels should be [...] Organization Address City/State/[place] [address] (ABNORMAL) Basic Metabolic Panel (non-fasting) (12/09/2021 7:30 PM EDT) P athologist Signature Glucose Lvl 372 (H) 65 - 199 [facility] mg/dL [facility] Comment: Diabetes: >=200 mg/dL plus symp toms BUN 56 (H) 10 - 20 mg/dL [facility] Creatinine 1.75 (H) 0.80 - 1.50 mg/dL [facility]ORY Sodium 138 135 - 145 mmol/L [facility]ORY Potassium 4.2 3.5 - 5.0 mmol/L [facility] [...] mg/dL [facility] Estimated GFR 37 (L) [...] Organization Address City/State/[place] [address] (ABNORMAL) POCT Glucose (12/09/2021 6:34 PM EDT) athologist Signature POC Glucose 408 (H) 65 - [address] [facility] Comment: Supplemental ranges: <140 mg/dL before meals <180 mg/dL all other times of the day Specimen Anatomical Collection Method Collection Time Receive d Time (Source) Location / / Volume Laterality Blood 12/09/2021 6:34 PM 2 6:34 EDT PM EDT Iker Cuevas MD POINT OF CARE TEST ORDERABLE S Performing Organization Address City/[facility]/[place] [address] (ABNORMAL) POCT Glucose (12/09/2021 6:32 PM EDT) athologist Signature POC Glucose 356 (H) 65 - 199 [facility]dL [facility] Comment: Supplemental ranges: <140 mg/dL before meals <180 mg/dL all other times of the day Specimen Anatomical Collection Method Collection Time Receive d Time (Source) Location / / Volume Laterality Blood 12/09/2021 6:32 PM 2 6:32 EDT PM EDT Iker Cuevas MD POINT OF CARE TEST ORDERABLE S Performing Organization Address City/State/[place] [address] (ABNORMAL) POCT Glucose (12/09/2021 4:19 PM EDT) athologist Signature POC Glucose 347 (H) 65 - 199 [facility] mg[facility]dL [facility] Comment: Supplemental ranges: <140 mg/dL before meals <180 mg/dL all other times of the day Specimen Anatomical Collection Method Collection Time Receive d Time (Source) Location / / Volume Laterality Blood 12/09/2021 4:19 PM 2 4:19 EDT PM EDT Iker Cuevas MD POINT OF CARE TEST ORDERABLE S Performing Organization Address City/State/[place] [address] Heparin (unfractionated) Level (12/09/2021 1:29 PM EDT) athologist Signature Heparin UFH 0.42 IU/mL [facility] Comment: Heparin (anti-Xa) levels should be [...] MD HEMATOLOGY ORDERABLES Performing Organization Address City/[facility]/[place] [address] (ABNORMAL) POCT Glucose (12/09/2021 12:02 PM EDT) athologist Signature POC Glucose 235 (H) 65 - 199 [facility] mg[facility]dL [facility] Comment: Supplemental ranges: <140 mg/dL before meals <180 mg/dL all other times of the day Specimen Anatomical Collection Method Collection Time Receive d Time (Source) Location / / Volume Laterality Blood 12/09/2021 12:02 12/09/2021 PM EDT 12:02 PM EDT Iker Cuevas MD POINT OF CARE TEST ORDERABLE S Performing Organization Address City/[facility]/[place] [address] (ABNORMAL) POCT Glucose (12/09/2021 9:44 AM EDT) P athologist Signature POC Glucose 214 (H) 65 - 199 [facility] mg/dL [facility] Comment: Supplemental ranges: <140 mg/dL before meals <180 mg/dL all other times of the day Specimen Anatomical Collection Method Collection Time Receive d Time (Source) Location / / Volume Laterality Blood 12/09/2021 9:44 AM 9:44 EDT AM EDT Iker Cuevas MD POINT OF CARE TEST ORDERABLE S Performing Organization Address City/[facility]/[place] [address] EKG 12 Lead (12/09/2021 7:57 AM EDT) Component Value Ref Range Test Analysis Performed Pathologis t Method Time At Signature Ventricular rate 101 BPM MUSE SYSTEM Atrial Rate 101 BPM MUSE SYSTEM P-R Interval 150 ms MUSE SYSTEM QRS Duration 112 ms MUSE SYSTEM Q-T Interval 364 ms MUSE SYSTEM QTC Calculated 471 ms MUSE SYSTEM (Bezet) Calculated P [place] 59 degrees MUSE SYSTEM Calculated R [place] -42 degrees MUSE SYSTEM Calculated T [place] 102 degrees MUSE SYSTEM INTERPRETATION Sinus tachycardia Occasional Premature ventricular com plexes MUSE SYSTEM Left axis deviation 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) Abnormal ECG When compared with ECG of 08-DEC-2021 16:40, Premature ventricular complexes are now Present Confirmed by MD Fernandez Danette ([id number]) on 12/10/2021 4:55:06 PM Specimen Anatomical Collection Method Collection Time Receive d Time (Source) Location / / Volume Laterality 12/09/2021 7:57 AM 4:55 EDT PM EDT Iker Cuevas MD ECG ORDERABLES Performing Organization Address City/State/ZIP Code Phon e Number MUSE SYSTEM (ABNORMAL) POCT Glucose (12/09/2021 7:28 AM EDT) P athologist Signature POC Glucose 263 (H) 65 - 199 [facility] mg/dL [facility] Comment: Supplemental ranges: <140 mg/dL before meals <180 mg/dL all other times of the day Specimen Anatomical Collection Method Collection Time Receive d Time (Source) Location / / Volume Laterality Blood 12/09/2021 7:28 AM 2 7:28 EDT AM EDT Iker Cuevas MD POINT OF CARE TEST ORDERABLE S Performing Organization Address City/State/[place] [address] (ABNORMAL) Hemoglobin A1c (12/09/2021 [...] [id number] Est Avg Gluc See note mg/dL [place] [...] into estimated average glucose values. ??Diabetes Care 2008:31(8):8374-9701. Specimen Anatomical Collection Method Collection Time Receive d Time (Source) Location / / Volume Laterality Blood Venous Draw / 12/09/2021 6:18 AM 12/10/19 22 Unknown EDT 12:24 PM EDT Resulting Agency Comment Spec In Lab Migdalia BROWN CHEMISTRY ORDERABLES Performing Organization Address City/State/[place] [address] (ABNORMAL) Prothrombin Time (12/09/2021 6:18 AM EDT) P athologist Signature PT 26.6 (H) 9.4 - 12.5 [facility] LABORATORY INR 2.3 [facility] Organization Address City/State/[place] [address] Heparin (unfractionated) Level (12/09/2021 6:18 AM EDT) P athologist Signature Heparin UFH 0.24 IU/mL [facility]ORY Comment: Heparin (anti-Xa) levels should be [...] Organization Address City/State/[place] [address] (ABNORMAL) Differential, Automated (12/09/2021 6:18 AM EDT) Patholo gist Method Time Signature Neutrophils % 91.5 % [facility] LABORATORY Neutr Abs (ANC) 15.78 (H) 1.70 - [facility] 6.10 [facility] x10(3)/[facility] L LABORATORY Lymphocytes % 2.9 % [facility] LABORATORY Lymphocytes Abs 0.5 (L) 0.9 - 3.2 [facility] x10(3)/[facility] LABORATORY Monocytes % 4.9 % [facility] LABORATORY Monocyte Abs 0.8 0.3 - 0.9 [facility] x10(3)/[facility] LABORATORY Eosinophils % 0.0 % [facility] LABORATORY Eosinophils Abs 0.0 0.0 - 0.4 [facility] x10(3)/[facility] LABORATORY Basophils % 0.2 % [facility] LABORATORY Basophils Abs 0.0 0.0 - 0.1 [facility] x10(3)/[facility] LABORATORY Immature Gran % 0.50 % WHITE [...] Gran Abs 0.09 (H) 0.00 - 0.04 x10(3)/[facility] LABORATORY Specimen Anatomical Collection Method Collection Time Receive d Time (Source) Location / / Volume Laterality Blood 12/09/2021 6:18 AM 6:33 EDT AM EDT Resulting Agency Comment Spec In Lab Morgan BROWN HEMATOLOGY ORDERABLES Performing Organization Address City/State/[place] [address] (ABNORMAL) Hemogram (12/09/2021 6:18 AM EDT) Analysis Performed At Patho logist Time Signature WBC 17.2 (H) 4.0 - 9.5 [facility] x10(3)/[facility] LABORATORY RBC 4.32 (L) 4.58 - [facility] 5.54 [facility] x10(6)/[facility] LABORATORY Hemoglobin 12.6 (L) 13.7 - [facility] 16.5 g/dL [facility] Hematocrit 38.9 (L) 40.5 - [facility] 48.5 % [facility] MCV 90.0 82.[facility] 93.1 fL [facility] MCH 29.2 27.5 - [facility] 32.1 pg [facility] MCHC 32.4 32.0 - [facility] 35.7 g/dL [facility] Platelets 193 145 - 357 [facility] x10(3)/[facility] LABORATORY RDWSD 50.4 (H) 36.0 - [facility] 45.0 [facility] LABORATORY RDWCV 15.2 (H) 11.4 - [facility] 13.8 % [facility] MPV 9.5 7.6 - 12.9 [facility] LABORATORY nRBC % Auto 0.0 % [facility] LABORATORY nRBC Abs Auto 0.000 0.000 - [facility] 0.000 [facility] x10(3)/[facility] LABORATORY Specimen Anatomical Collection Method Collection Time Receive d Time (Source) Location / / Volume Laterality Blood 12/09/2021 6:18 AM 6:33 EDT AM EDT Resulting Agency Comment Spec In Lab Morgan BROWN HEMATOLOGY ORDERABLES Performing Organization Address City/State/[place] [address] Lipid Panel (Reflex Direct LDL) (12/09/2021 6:18 AM EDT) P athologist Signature Chol, Total 105 mg/dL [facility] LABORATORY Comment: Lower Risk: <200 mg/dL Average Risk: 200-239 mg/dL Higher Risk: >ma=847 mg/dL Triglycerides 133 mg/dL [facility]ORY Comment: Average Risk/Lower Risk: <150 mg/dL Borderline High Risk: 150-199 mg/dL High Risk: 200-499 mg/dL Very High Risk: >hm=033 mg/dL HDL 42 mg/dL [facility] Comment: Males: ?? Higher Risk: <40 mg/dL Females: ?? Higher Risk: <50 mg/dL LDL Cholesterol 36 mg/dL [facility] LABORATORY Comment: Lowest Risk: <100 mg/dL Lower Risk: 100-129 mg/dL Borderline High Risk: 130-159 mg/dL High Risk: 160-189 mg/dL Very High Risk: >wr=066 mg/dL Chol/HDL Ratio 2.5 ratio [facility] LABORATORY Lipid Interpretation See Note [facility]ORY Comment: Lipid management should be guided by a p atient? s ASCVD risk, goals and preferences. ACC/AHA Guidelines recommend high intens ity statin if clinical ASCVD or LDL greater than or equal to 190 mg/dL. [email or web address] Adults aged 40-75 with LDL 70-189 mg/dL should have their 10 year ASCVD risk estimated with the ACC/AHA ASCVD risk es timator http://tools.acc.org/UTMXT-Erci-Jwefgger r/ Statin should be discussed if risk [...] Address City/State/ZIP Code Phon [place] [address] TSH (12/09/2021 6:18 AM EDT) P athologist Signature TSH 1.60 0.27 - 4.20 [place] mcIU/mL [facility] Comment: Reference Interval (mcIU/mL): Females: ??First Trimester: 0.23-3.88 ??Second Trimester: 0.22-3.90 ??Third Trimester: 0.44-4.66 Specimen Anatomical Collection Method Collection Time Receive d Time (Source) Location / / Volume Laterality Blood 12/09/2021 6:18 AM 2 6:33 EDT AM EDT Resulting Agency Comment Spec In Lab Iker Cuevas MD CHEMISTRY ORDERABLES Performing Organization Address City/State/[place] [address] Hepatic Function Panel (12/09/2021 6:18 AM EDT) athologist Signature Total Protein 7.3 6.1 - 8.0 [place] g/dL [facility] Albumin 4.2 3.2 - 5.2 [place] g/dL [facility] AST 25 0 - 39 [place] unit/L [facility] ALT 15 0 - 55 [place] unit/L [facility] Alk Phos 75 40 - 130 [facility] SU unit/L [facility] Total 1.1 0.2 - 1.3 [place] Bilirubin mg/dL [facility] Bili, Direct 0.2 0.0 - 0.3 [facility] SU mg/dL [facility] Specimen Anatomical Collection Method Collection Time Receive d Time (Source) Location / / Volume Laterality Blood 12/09/2021 6:18 AM 2 6:33 EDT AM EDT Resulting Agency Comment Spec In Lab Iker Cuevas MD CHEMISTRY ORDERABLES Performing Organization Address City/State/[place] [address] (ABNORMAL) BMP w/fasting Glucose (12/09/2021 6:18 AM EDT) P athologist Signature Glucose 235 (H) 65 - 99 [place] Fasting mg/dL [facility] Comment: ?Fasting* Glucose Interpretive C [...] of Diabetes Mellitus, Position Statement from the [place] [employer]. ??Diabete s Care, Volume 33, Supplement 1, Jul 2009 BUN 49 (H) 10 - 20 mg/dL [facility] Creatinine 1.33 0.80 - 1.50 mg/dL [facility] LABORATORY Sodium 139 135 - 145 mmol/L [facility]ORATORY Potassium 4.2 3.5 - 5.0 mmol/L [facility] [...] LABORATORY Calcium 8.8 8.5 - 10.5 mg/dL [facility]OR[facility]ORY Estimated GFR 52 (L) [...] Organization Address City/State/[place] [address] [facility] [address] Magnesium (12/09/2021 6:18 AM EDT) athologist Signature Magnesium 0.81 0.69 - 1.07 [facility]/L [facility] Specimen Anatomical Collection Method Collection Time Receive d Time (Source) Location / / Volume Laterality Blood 12/09/2021 6:18 AM 2 6:33 EDT AM EDT Resulting Agency Comment Spec In Lab Iker Cuevas MD CHEMISTRY ORDERABLES Performing Organization Address City/State/[place] [address] [facility] [address] (ABNORMAL) Troponin (12/09/2021 6:18 AM EDT) athologist Signature Troponin-T 1.13 (H) 0.00 - [place] 0.00 ng/mL [facility] Comment: The 99th percentile for Troponin T is le ss than 0.01 ng/mL, any detectable cTnT concentration using this assay should be considered elevated. According to the third universal definit ion of myocardial infarction the following criteria with a clinical prese ntation consistent with acute myocardial ischemia meets the diagnosis for a myocardial infarction (MN). Detection of a rise and/or fall of [...] additional sample may be indicated. Reference: Third Lind[place]ith Definition of Myocardial Infarction. Journal of the [place] [employer] 2012;60:1581-98 Specimen Anatomical Collection Method Collection Time Receive d Time (Source) Location / / Volume Laterality Blood 12/09/2021 6:18 AM 2 6:33 EDT AM EDT Resulting Agency Comment Spec In Lab Iker Cuevas MD CHEMISTRY ORDERABLES Performing Organization Address City/State/ZIP Code Phon e Number [place] [id number] XR Chest One View [...] who have questions please contact the health nursing care attendant that requested your imaging first. ? Narrative [...] ho have questions please contact the health nursing care attendant that requested your imaging first. Electronically signed by: Yoselin White, [facility] ([phone]), at 12/09/2021 5:35 AM Amber Sanches MD IMG DX ORDERABLES (ABNORMAL) BLOOD GAS 2 ARTERIAL (12/09/2021 5:14 AM EDT) Analysis Performed At Patho logist Time Signature pH Art 7.43 7.35 - [facility] 7.45 [facility] pCO2 Art 36 35 - 45 [facility] mmHg [facility] pO2 Art 67 (L) 85 - 104 [facility] mmHg [facility] HCO3 Art 23.4 20.0 - [facility] 26.0 [facility] mmol/L HOSPITAL LABORATORY BE Art -0.9 -3.0 - 3.0 [facility] mmol/L [facility] Hgb Blood Gas 13.2 (L) 13.7 - [facility] 16.5 g/dL [facility] O2HB Art 91.3 (L) 94.0 - [facility] 97.0 % [facility] COHB Art 0.4 % [facility] Comment: Nonsmokers: 0.5-1.5% COHB Smokers: Variable, but usually less than 10% Toxic: 20-30% COHB Lethal: Greater than 60% COHB METHB Art 0.4 <=1.5 % [facility] LABORATORY Na [...] mmol/L [facility] Gluc Whole Bld 223 (H) 65 - 199 mg/dL [facility] Comment: Diabetes: >=200 mg/dL plus symp toms. Lactate WB 2.7 (H) 0.5 - 2.2 mmol/L [facility] LABORATORY FIO2 Art 35 % [facility] Flow Art 8.0 LPM [facility] PF Ratio Art 191 [facility] LABORATORY Specimen Anatomical Collection Method Collection Time Receive d Time (Source) Location / / Volume Laterality Blood 12/09/2021 5:14 AM 2 5:14 EDT AM EDT Iker Cuevas MD CHEMISTRY ORDERABLES Performing Organization Address City/[facility]/[place] [address] POCT Glucose (12/09/2021 4:46 AM EDT) P athologist Signature POC Glucose 198 65 - 199 [facility] mg/dL [facility] Comment: Supplemental ranges: <140 mg/dL before meals <180 mg/dL all other times of the day Specimen Anatomical Collection Method Collection Time Receive d Time (Source) Location / / Volume Laterality Blood 12/09/2021 4:46 AM 2 4:46 EDT AM EDT Iker Cuevas MD POINT OF CARE TEST ORDERABLE S Performing Organization Address City/State/ZIP Code [place] [address] (ABNORMAL) POCT Glucose (12/09/2021 3:01 AM EDT) athologist Signature POC Glucose 225 (H) 65 - [address] [facility] Comment: Supplemental ranges: <140 mg/dL before meals <180 mg/dL all other times of the day Specimen Anatomical Collection Method Collection Time Receive d Time (Source) Location / / Volume Laterality Blood 12/09/2021 3:01 AM 3:01 EDT AM EDT Iker Cuevas MD POINT OF CARE TEST ORDERABLE S Performing Organization Address City/State/[place] [address] (ABNORMAL) POCT Glucose (12/08/2021 10:55 PM EDT) athologist Signature POC Glucose 327 (H) 65 - [address] [facility] Comment: Supplemental ranges: <140 mg/dL before meals <180 mg/dL all other times of the day Specimen Anatomical Collection Method Collection Time Receive d Time (Source) Location / / Volume Laterality Blood 12/08/2021 10:55 12/08/2021 PM EDT 10:55 PM EDT Iker Cuevas MD POINT OF CARE TEST ORDERABLE S Performing Organization Address City/State/[place] [address] Heparin (unfractionated) Level (12/08/2021 10:03 PM EDT) athologist Signature Heparin UFH 0.18 IU/mL [facility] LABORATORY Comment: Heparin (anti-Xa) levels should be [...] Organization Address City/State/[place] [address] (ABNORMAL) Troponin (12/08/2021 10:03 PM EDT) athologist Signature Troponin-T 0.92 (H) 0.00 - [place] 0.00 ng/mL [facility] Comment: The 99th percentile for Troponin T is le ss than 0.01 ng/mL, any detectable cTnT concentration using this assay should be considered elevated. According to the third universal definit ion of myocardial infarction the following criteria with a clinical prese ntation consistent with acute myocardial ischemia meets the diagnosis for a myocardial infarction (MN). Detection of a rise and/or fall of [...] additional sample may be indicated. Reference: Third Lind[place] Definition of Myocardial Infarction. Journal of the [place] [employer] 2012;60:1581-98 Specimen Anatomical Collection Method Collection Time Receive d Time (Source) Location / / Volume Laterality Blood 12/08/2021 10:03 12/08/2021 PM EDT 10:31 PM EDT Resulting Agency Comment Spec In Lab Iker Cuevas MD CHEMISTRY ORDERABLES Performing Organization Address City/State/ZIP Code Phon e Number [address] (ABNORMAL) POCT Glucose (12/08/2021 8:22 PM EDT) P athologist Signature POC Glucose 429 (H) 65 - 199 [facility] Comment: Supplemental ranges: <140 mg/dL before meals <180 mg/dL all other times of the day Specimen Anatomical Collection Method Collection Time Receive d Time (Source) Location / / Volume Laterality Blood 12/08/2021 8:22 PM 2 8:22 EDT PM EDT Iker Cuevas MD POINT OF CARE TEST ORDERABLE S Performing Organization Address City/[facility]/[place] [address] (ABNORMAL) POCT Glucose (12/08/2021 7:06 PM EDT) P athologist Signature POC Glucose 442 (H) 65 - 199 [place] [facility] mg/dL [facility] Comment: Supplemental ranges: <140 mg/dL before meals <180 mg/dL all other times of the day Specimen Anatomical Collection Method Collection Time Receive d Time (Source) Location / / Volume Laterality Blood 12/08/2021 7:06 PM 2 7:06 EDT PM EDT Iker Cuevas MD POINT OF CARE TEST ORDERABLE S Performing Organization Address City/[facility]/ZIP Code Phon e Number [address] Magnesium (12/08/2021 6:02 PM EDT) P athologist Signature Magnesium 0.86 0.69 - 1.07 [facility]/L [facility] Specimen Anatomical Collection Method Collection Time Receive d Time (Source) Location / / Volume Laterality Blood 12/08/2021 6:02 PM 2 6:36 EDT PM EDT Resulting Agency Comment Spec In Lab Iker Cuevas MD CHEMISTRY ORDERABLES Performing Organization Address City/State/[place] [address] (ABNORMAL) Basic Metabolic Panel (non-fasting) (12/08/2021 6:02 PM EDT) P athologist Signature Glucose Lvl 392 (H) 65 - 199 [facility] mg/dL [facility] Comment: Diabetes: >=200 mg/dL plus symp toms BUN 41 (H) 10 - 20 mg/dL [facility]ATORY Creatinine 1.44 0.80 - 1.50 mg/dL [facility] Organization Address City/State/[place] [address] (ABNORMAL) Differential, Automated (12/08/2021 6:02 PM EDT) [facility] gist Method Time Signature Neutrophils % 89.5 % [facility] LABORATORY Neutr Abs (ANC) 13.97 (H) 1.70 - [facility] 6.10 [facility] x10(3)/[facility] LABORATORY Lymphocytes % 3.7 % [facility] LABORATORY Lymphocytes Abs 0.6 (L) 0.9 - 3.2 [facility] x10(3)/[facility] LABORATORY Monocytes % 6.1 % [facility] LABORATORY Monocyte Abs 1.0 (H) 0.3 - 0.9 [facility] x10(3)/[facility] LABORATORY Eosinophils % 0.0 % [facility] LABORATORY Eosinophils Abs 0.0 0.0 - 0.4 [facility] [facility] x[facility](3[facility] LABORATORY Basophils % 0.2 % [facility] LABORATORY Basophils Abs 0.0 0.0 - 0.1 [facility] x10(3)/[facility] LABORATORY Immature Gran % 0.50 % WHITE [...] Gran Abs 0.08 (H) 0.00 - 0.04 x10(3)/[facility] LABORATORY Specimen Anatomical Collection Method Collection Time Receive d Time (Source) Location / / Volume Laterality Blood 12/08/2021 6:02 PM 2 6:36 EDT PM EDT Resulting Agency Comment Spec In Lab Morgan BROWN HEMATOLOGY ORDERABLES Performing Organization Address City/State/[place] [address] (ABNORMAL) Hemogram (12/08/2021 6:02 PM EDT) Analysis Performed At Patho logist Time Signature WBC 15.6 (H) 4.0 - 9.5 [facility] SU x10(3)/[facility] LABORATORY RBC 4.05 (L) 4.58 - [facility] SU 5.54 [facility] x10(6)/[facility] LABORATORY Hemoglobin 11.8 (L) 13.7 - [facility]dL [facility] LABORATORY Hematocrit 35.8 (L) 40.5 [facility] % [facility] LAB[facility] MCV 88.4 82.9 - [facility] SU 93.1 [facility] LABORATORY MCH 29.1 27.5 - [place] SU 32.1 pg [facility] LABORATORY MCHC 33.0 32.0 - [place] SU 35.7 g/dL [facility] LABORATORY Platelets 178 145 - 357 [facility] x10(3)/[facility] LABORATORY RDWSD 49.3 (H) 36.0 - [facility] SU 45.0 [facility] LABORATORY RDWCV 15.1 (H) 11.4 - [facility] SU 13.8 % [facility] LABORATORY MPV 10.4 7.6 - 12.9 [facility] nRBC % Auto 0.0 % [facility] LABORATORY nRBC Abs Auto 0.000 0.000 - [place] [employer] 0.000 [facility] x10(3)/[facility] LABORATORY Specimen Anatomical Collection Method Collection Time Receive d Time (Source) Location / / Volume Laterality Blood 12/08/2021 6:02 PM 2 6:36 EDT PM EDT Resulting Agency Comment Spec In Lab [facility]OWN HEMATOLOGY ORDERABLES Performing Organization Address City/State/[place] [address] (ABNORMAL) Troponin (12/08/2021 6:02 PM EDT) P athologist Signature Troponin-T 0.89 (H) 0.00 - [place] DAVIS 0.00 ng/mL [facility] LABORATORY Comment: The 99th percentile for Troponin T is le ss than 0.01 ng/mL, any detectable cTnT concentration using this assay should be considered elevated. According to the third universal definit ion of myocardial infarction the following criteria with a clinical prese ntation consistent with acute myocardial ischemia meets the diagnosis for a myocardial infarction ([place]). Detection of a rise and/or fall of [...] additional sample may be indicated. Reference: Third [place] Definition of Myocardial Infarction. Journal of the [place] [employer] 2012;60:1581-98 Specimen Anatomical Collection Method Collection Time Receive d Time (Source) Location / / Volume Laterality Blood 12/08/2021 6:02 PM 2 6:36 EDT PM EDT Resulting Agency Comment Spec In Lab Iker Cuevas MD CHEMISTRY ORDERABLES Performing Organization Address City/State/ZIP Code Phon e Number [place] [address] COVID-19 PCR (12/08/2021 5:00 PM EDT) Patholo gist Method Time Signature SARS-CoV-2 Not Detected Not Detected [place] RNA PCR [facility] LABORATORY Comment: This result should [...] using the Simplexa COVID-19 Direct Assay by [email or web address] as authorized by the FDA issued [...] Department of Pathology and Laboratory Medicine at [facility], certified under the Clinical Laboratory Improvement [...] fact sheets at the following FDA website: https://www.fda.gov/medical-devices/htxgjoswevc-pdxaasn-4552-ozzgq-95-uncoswffy- plr-uiutftbdqtwlfm-nmxaxcr-devices/qgqvk-qtrabsafhbx-lehm SARS-CoV-2 Source [employer] Swab [facility] LABORATORY Specimen (Source) Anatomical Collection Method Collection Time Re ceived Time Location / / Volume Laterality Nasopharyngeal Swab 12/08/2021 5:00 12/08 PM EDT 6:03 PM EDT Comment: Symptoms->Surveillance Resulting Agency Comment Spec In Lab Iker Cuevas MD MICROBIOLOGY - GENERAL ORDER [place] Performing Organization Address City/[facility]/[place] [address] EKG 12 Lead (12/08/2021 4:40 PM EDT) Component Value Ref Range Test Analysis Performed Pathologis t Method Time At Signature Ventricular rate 78 BPM MUSE SYSTEM Atrial Rate 78 BPM MUSE SYSTEM P-R Interval 152 ms MUSE SYSTEM QRS Duration 96 ms MUSE SYSTEM Q-T Interval 396 ms MUSE SYSTEM QTC Calculated 451 ms MUSE SYSTEM (Bezet) Calculated P [place] 44 degrees MUSE SYSTEM Calculated R [place] -31 degrees MUSE SYSTEM Calculated T [place] 124 degrees MUSE SYSTEM INTERPRETATION Normal sinus [...] Cuevas MD ECG ORDERABLES Performing Organization Address City/[facility]/ZIP Code Phon e Number MUSE SYSTEM (ABNORMAL) POCT Glucose (12/08/2021 4:34 PM EDT) P athologist Signature POC Glucose 400 (H) 65 - 199 [facility] mg/dL [facility] LABORATORY Comment: Supplemental ranges: <140 mg/dL before meals <180 mg/dL all other times of the day Specimen Anatomical Collection Method Collection Time Receive d Time (Source) Location / / Volume Laterality Blood 12/08/2021 4:34 PM 2 4:34 EDT PM EDT Iker Cuevas MD POINT OF CARE TEST ORDERABLE S Performing Organization Address City/State/[place] [address] documented in this encounter [...] Coronary atherosclerosis of unspecified type of vessel, [place] or graft Cardiomyopathy, ischemic Other specified forms [...] TIMES DAILY WITH MEALS, First dose on [facility] 12/08/21 at 1730, Until Discontinued, MEAL [...] 10 mg 1004 (Given - Provider: Emma Garcia, VAMSI) 10 mg, Oral, DAILY, First dose [...] 0835 (Given - Provider: Emma Garcia, VAMSI) 0828 [...] Admin Adt)1746 (Given - Provider: Emma Garcia, RN) 0900 (Given - Provider: Emma Garcia [...] acetaminophen (Tylenol) tablet 650 mg 0805 ([facility] Hold - Provider: Admin Adt - Reason: Transfer to a Procedural area)1230 ([facility] Unhold - Provider: Admin Adt) [...] Reason: Transfer to a Procedural area)1230 ([facility] Unhold - Provider: Admin Adt) 10 mg, Rectal, DAILY PRN, Starting on Tu e 12/09/21 at 1629, Until Wed12/12/21 at 1312, Constipation, Routine dextrose 10% infusion(Linked Group 2) 0805 ([facility] Hold - Provider: Admin Adt [...] (Intra-Procedure), Routine niCARdipine (Cardene) (100 mcg/mL) dilution (BANKING CONSULTANT) (CANCELED) 1030 (Given - Provider: Vitaliy Nobles [...] episode. & nbsp; For persistent hypoglycemia, con music coordinator longer-acting treatment for the duration of the [...]
Routine documented in this encounter Care Teams Domestic Maid Relationship Specialty Start Date End Date Lovely Vicente MD PCP - General 04[birth year]16[birth year][address] [place] [address] documented as of this encounter
--- OUTSIDE RECORDS SUMMARY | 2022-02-25 08:10 | XMS_ITS | Encounter Summary ---
:1945 Author Organization [facility] [place] [address] Care Team Providers Name Role Phone Lovely Vicente MD Primary Care Provider Reason for Visit Auth/Cert Specialty Diagnoses / Procedures Referred By Contact Refer red To Contact Diagnoses NSTEMI Procedures emerg ipi Referral ID Status Reason Start Date Expiration Date Visits Requ ested Visits Authorized [id number] 1 1 Encounter Details Date Type Department Care Team Description 12/10/2021 Surgery E Commerce Web Developer Asa Coulter MD CARDIAC CATHETERIZATION [facility] [place] [address] [place] [address] [phone] (Wo rk) Social History Tobacco Use Types [...] Don Fatima Patient Age: 76 y.o. Language: Emirati Race: White Ethnicity: Not nor Admit date: [...] Peter PA-C Kelly LaFlamme PA-C Cardiovascular Medicine [phone] Discharge Diagnoses (Hospital Problems) and Secondary Diagnoses [...] 3.75 guiding catheter and a 3.5 Fr [place] [facility] [place] 20 Mhz using Manual pullback. Imaging was successful. Image quality was good. The ostial LCX showed moderate diffuse atherosclerotic plaque with scattered three quadrant calcification. Measurements were performed after pre-dilation. Post Intervention: The stent was well expanded and apposed. Intravascular Ultrasound was performed in the distal LM using a 7 Fr EBU 3.75 guiding catheter and a 3.5 Fr [place] [facility] [place] 20 Mhz using Manual pullback. Imaging was [...] require modification of this regimen. Consult [facility] Interventional [...] congestion and cardiomegaly. ?? TTE from [facility] 12/08/21 ? Prior Cardiac Studies: [...] thyroidectomy in 2012 who presented to [facility] with 1 week progressing breathlessness [...] with Liz Poole PA-C. ?? At [facility], respiratory distress with hypoxia 86% [...] and diet drinks did not cause his IA. This is what his thought was the [...] appointments: During 8am-5pm Wednesday through Wednesday call [phone] to speak with a nurse in the cardiology clinic All other times call [phone] and ask to speak to the talent scout concessions manager. Return to work: One week Driving: No driving for 48 hours after catheterization. Follow up Appointments: PCP Lovely Vicente MD [phone] to see patient at the end of December for annual check up. Patient to see Dr. Lorenzana at 1120 am at December 19 for a post hospital check up. Patent Searcher Dr. De Oliveira to see you in [facility]. Left a message for office to set a date and time. Please call [phone] Nobles to see the patient for a same day cath in 2-3 weeks from now. Office to call with a date and time. For questions please call [phone] Home oxygen therapy: N/A Arrangements for VNA/home care: none Future Appointments and Orders Future Orders Complete By Expires Basic Metabolic Panel (non-fasting) [LAB15 Custom] 12/19/2021 (Approximate) 12/12/2022 Process Instructions: INCLUDES: Calcium, BUN, Creat, GFR, Glucose, Lytes Scheduling Instructions: Comments: Questions: Referral to Cardiac Rehab [VRS377 Custom] As directed Process Instructions: If no [...] appointments: During 8am-5pm Wednesday through Wednesday call [phone] to speak with a nurse in the cardiology clinic All other times call [phone] and ask to speak to the talent scout concessions manager. Return to work: One week Driving: No driving for 48 hours after catheterization. Follow up Appointments: PCP Loevly Vicente MD [phone] to see patient at the end of December for annual check up. Patient to see Dr. Lorenzana at 1120 am at December 19 for a post hospital check up. Patent Searcher Dr. De Oliveira to see you in [facility]. Left a message for office to set a date and time. Please call [phone] Nobles to see the patient for a same day cath in 2-3 weeks from now. Office to call with a date and time. For questions please call [phone] Home oxygen therapy: N/A Arrangements for VNA/home [...] Progress Note Patient Name: Don Fatima Service: [employer] PLATEMAKER / PA Responsible Attending: Ifeanyi Truong MD [...] was given Lasix 80mg IV x1 in director of cardiac cath lab. Tolerated procedure well. Home today at 11 [...] TROPONINT 1.13* 0.92* 0.89* Pertinent Radiographic/Diagnostic Results: R/[facility] 12/10/21 Hemodynamics: Right Heart Pressures Resting: [...] vascular congestion and cardiomegaly. 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 DM. MARIA VICTORIA.ICM. ??? ASHD [...] was given Lasix 80mg IV x1 in director of cardiac cath lab. Tolerated procedure well. Review of Systems: Review [...] Intake/Output Summary (Last 24 hours) at 12/11/2021 0989 Last data filed at 12/11/2021 0508 Gross [...] vascular congestion and cardiomegaly. TTE from [facility] 12/08/21 Prior Cardiac Studies: TTE [...] and answered his questions. Iker Cuevas MD [facility] Total time spent on review of records prior to visit, face to face time with patient during visit, documentation, and coordination of care with other clinicians: 25 minutes. . Iker Cuevas MD - 12/10/2021 12:30 PM EDT Images from the original note were not included. Inpatient Cardiology Progress Note Patient Name: Don Fatima Service: [employer] PLATEMAKER / PA Responsible Attending: Iker Cuevas MD Reason for continued hospitalization: NSTEMI- s/p R/LHC- PCW 27, occluded SVGs s/p PCI to ostial LCX ADHF and hypoxia- IV diuresis Active Problems: Active Hospital Problems Diagnosis ??? Admitted with 2 days of sob, hypoxemia, and + trop. 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 DM. MARIA VICTORIA.ICM. ??? ASHD [...] was given Lasix 80mg IV x1 in director of cardiac cath lab. Tolerated procedure well. Review of Systems: Review [...] TROPONINT 1.13* 0.92* 0.89* Pertinent Radiographic/Diagnostic Results: R/[facility] 12/10/21 Hemodynamics: Right Heart Pressures Resting: [...] vascular congestion and cardiomegaly. TTE from [facility] 12/08/21 Prior Cardiac Studies: TTE [...] Discussed with MD Migdalia Peter PA-C Pager #[phone] 12/10/2021 Cardiology Attending Note I have seen [...] updated and given pictures. Iker Cuevas MD [facility] Total time spent on review of records prior to visit, face to face time with patient during visit, documentation, and coordination of care with other clinicians: 35 minutes. Iker Cuevas MD - 12/09/2021 7:28 AM EDT Images from the original note were not included. 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 Admitted with 2 days of sob, hypoxemia, and + trop. 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 DM. MARIA VICTORIA.ICM. ??? ASHD [...] vascular congestion and cardiomegaly. TTE from [facility] 12/08/21 Prior Cardiac Studies: TTE [...] Discussed with MD Migdalia Peter PA-C Pager #[phone] 12/09/2021 Cardiology Attending Note I have seen and examined the patient. I agree with the findings above. Developed CHF early this am despite getting more iv lasix last evening. Feeling better now. INR > 2. Lungs still wet at base. Echo at [facility] showed EF 35% with mild mod MR slightly lower than last value here. -vit K 2.5 orally to facilitate correction of INR- this will take 12-24 hours to take effect -furosemide 80 mg iv now -postpone right and left heart cath until tomorrow given INR and ADHF -increase statin to achieve LDL < 70 -CPAP tonight Iker Cuevas MD [facility] Total time spent on review of [...] + trop. 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 DM. MARIA VICTORIA.ICM. ??? ASHD [...] thyroidectomy in 2012 who presented to [facility] with 1 week progressing breathlessness [...] 03/2021 with Liz Poole PA-C. At [facility], respiratory distress with hypoxia 86% [...] SETUP performed by Manny Mcknight MD at [facility] MAIN OR ??? PRO AMPUTATION FOOT, TRANSMETATARSAL Right 08/09/2017 AMPUTATION, TRANSMETATARSAL (WRVU 12.71) performed by Yonathan Smith MD at [facility] MAIN OR ??? PRO CABG, ARTERIAL, SINGLE N/A 07/07/2017 @CABG, USING ARTERIAL GRAFT;SINGLE ARTERIAL GRAFT (WRVU 33.75) performed by Yuan Retana MD at [facility] MAIN OR ??? PRO CABG, ARTERY-VEIN, TWO N/A 07/07/2017 @CABG, TWO VENOUS GRAFTS & ARTERIAL GRAFT (WRVU 7.93) performed by Yuan Retana MD at [facility] MAIN OR ??? PRO COLONOSCOPY, REMV LESN, SNARE 01/16/2014 COLONOSCOPY, POLYPECTOMY, REMOVAL LESION BY SNARE performed by Nohemi Jaimes MD at [facility] ENDOSCOPY ??? PRO DRESSING CHANGE UNDER ANESTHESIA Right 08/11/2017 (MSURG) DRESSING CHANGE (FOR OTHER THAN IVAN) UNDER ANES. (WRVU 0.86) performed by Lamar Smith MD at [facility] MAIN OR ??? PRO ENDOSCOPY W/VIDEO-ASST VEIN HARVEST, CABG Right 07/07/2017 ENDOSCOPIC HARVEST VEIN(S) FOR CABG (WRVU 0.31) performed by Yaun Retana MD at [facility] MAIN OR ??? PRO THYROIDECTOMY 03/28/2013 THYROIDECTOMY, TOTAL OR COMPLETE performed by Manny Mcknight MD at [facility] MAIN OR Significant Family History: [...] 65 - 199 mg/dL Labs at [facility] 12/08/2021-troponin I 8004 (UN L [...] Monitor for ADRs. Trend troponins. Admission EKG. [facility] 12/09; consented. TTE. Telemetry monitoring, daily [...] code #Diet-carb control; n.p.o. after midnight for [facility] #DVT prophy- heparin infusion #GI prophy- PPI Discussed with MD Morgan Peter PA-C APP2 pager [phone] 12/08/2021 Cardiology Attending Note I have seen [...] is type 1 due to graft or [place] coronary stenosis vs acute injury from CHF. 3. PAF: currrently in NSR. Have replaced warfarin with heparin 4. PAD: stable 5. DM: stable 6. CKD: will monitor and minimize contrast. Pt very appreciative of Dr. Yuan Retana's care in 2018. Will let him know patient is here. Iker Cuevas MD [facility] documented in this encounter Miscellaneous Notes Care [...] Type: *No Product type* / Secondary Insurance: [employer] [place] Prescription Coverage: Yes This plan was [...] cath without complications. Migdalia Parker PA-C Pager #[phone] 12/10/2021 Initial Assessments - Nick Georges RN [...] COVID test: Lab Results Component Value Date [id number] Not Detected 12/08/2021 Past medical History: Past [...] spouse would be surrogate decision maker per [place] surrogate decision making law. (Only good for 180 days) Any patient receiving care at [facility] must abide by [place] law. The hierarchy for surrogate decision making [...] - standard, cane - straight Home Address: [address] [place] [address] [place] [address] Social & Family Supports: All names listed below confirmed with patient as current and correct Extended Emergency Contact Information Primary Emergency Contact: Kisha Fatima Address: [address] [place] [address] [place] [address] [facility] [place] Relation: Spouse Secondary Emergency Contact: Elba Swenson Address: [address] [place] Relation: Child Current Care Provided [...] Type: *No Product type* / Secondary Insurance: [facility] Prescription Coverage: Yes Preferred Pharmacy: [facility] [address] [address] - [place], [place] - [address] [address] Status: Patient is a : unable to assess Primary Care Provider: Lovely Vicente MD [phone] Patient/Caregiver Goals of Treatment: Get out of here Potential Needs for Transition of Care: none Agency Referrals: none patient has used [facility] in the past Transportation: no concerns Transportation Anticipated: family or friend will provide Concerns to be Addressed: patient refuses services, discharge planning Assessment: Patient is admitted to [facility] Service pager [phone] for 76 y.o.??male??with h/o??CAD [...] status on current unit. Nick Georges RN judicial administrative assistant, Office of Care Management Pager: [phone] Brief Op Note - Vitaliy Nobles MD - 12/10/2021 8:31 AM EDT Images from the original note were not included[place] [address] CORONARY ANGIOGRAM AND PERCUTANEOUS CORONARY INTERVENTION REPORT Patient: Don Fatima : 1945 MR number: [id number] Date of Service: 12/10/2021 Fine Grade Operator: Vitaliy Nobles MD Fellow: [place] [...] and to provide a review of manager long term care diabetes care. Diabetes History: Don Fatima has had diabetes for 10 years. He has been on insulin for the last several years andis managed by his PCP. Lives in [place], [place] with his . States that he [...] 5 gm carb ratio for each meal) detention diabetes care: Medications - Outpatient treatment regimen recommendations pending based on the hospital course. Monitoring - continue BG tid ac & hs Diet - low fat/low carb diet Exercise - weight-bearing exercise 30 min/day, as tolerated Thank you for allowing us to provide care for your patient Desirae Jett APRN Endocrinology Pager [phone] 70 minutes of this 80 minute visit [...] + trop. 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 DM. MARIA VICTORIA.ICM. ??? ASHD [...] for further details. STEPHANIE Rebolledo 12/08/2021 Pager [phone] documented in this encounter Plan of Treatment Upcoming Encounters Date Type Specialty Care Team Description 03/26/2022 Office Visit Cardiology Vitaliy Nobles MD [facility] CARDIOLOGY [place], [place] [address] (Wo rk) 06/10/2022 Office Visit Dermatology Laura Scherer MD [facility] DR [address]-DERMAT [facility] [place], [place] [address] (Wo rk) Scheduled Referrals Name [...] (ABNORMAL) POCT Glucose (12/12/2021 7:42 AM EDT) P athologist Signature POC Glucose 215 (H) 65 - 199 [facility] mg/dL [facility] Comment: Supplemental ranges: <140 mg/dL before meals <180 mg/dL all other times of the day Specimen Anatomical Collection Method Collection Time Receive d Time (Source) Location / / Volume Laterality Blood 12/12/2021 7:42 AM 7:42 EDT AM EDT Ifeanyi Truong MD POINT OF CARE TEST ORDERABLE S Performing Organization Address City/State/ZIP Code Ph[place] [address] (ABNORMAL) Differential, Automated (12/12/2021 4:51 AM EDT) P athologist Signature Neutrophils % 75.4 % [facility] Neutr Abs (ANC) 5.95 1.70 - [facility] 6.10 [facility] x10(3)/[facility] LABORATORY Lymphocytes % 12.2 % [facility] Lymphocytes Abs 1.0 0.9 - 3.2 [facility] x10(3)/[facility] LABORATORY Monocytes % 9.5 % [facility] Monocyte Abs 0.8 0.3 - 0.9 [facility] x10(3)/[facility] LABORATORY Eosinophils % 1.8 % [facility] Eosinophils Abs 0.1 0.0 - 0.4 [facility] x10(3)/[facility] LABORATORY Basophils % 0.5 % [facility] Basophils Abs 0.0 0.0 - 0.1 [facility] x10(3)/[facility] LABORATORY Immature Gran % 0.60 [...] Address City/State/[place] [address] (ABNORMAL) Hemogram (12/12/2021 4:51 AM EDT) Analysis Performed At Patho logist Time Signature WBC 7.9 4.0 - 9.5 [facility] x10(3)/[facility] LABORATORY RBC 4.19 (L) 4.58 - [place] 5.54 [facility] x10(6)/[facility] LABORATORY Hemoglobin 12.1 (L) 13.7 - [place] 16.5 g/dL [facility] Hematocrit 36.7 (L) 40.5 - [place] [facility] 48.5 % [facility] MCV 87.6 82.9 - [facility].1 [facility] LAB[facility] MCH 28.9 27.5 - [place] 32.1 pg [facility] MCHC 33.0 32.0 - [place] 35.7 g/dL [facility] Platelets 231 145 - 357 [facility] x10(3)/[facility] LABORATORY RDWSD 47.2 (H) 36.0 - [facility] RYAN 45.0 [facility] LABORATORY RDWCV 14.6 (H) 11.4 - [facility] 13.8 % [facility] MPV 9.5 7.6 - 12.9 [facility] LABORATORY nRBC % Auto 0.0 % [facility] nRBC Abs Auto 0.000 0.000 - [facility] 0.000 [facility] x10(3)/[facility] LABORATORY Specimen Anatomical Collection Method Collection Time Receive d Time (Source) Location / / Volume Laterality Blood 12/12/2021 4:51 AM 5:06 EDT AM EDT Resulting Agency Comment Spec In Lab Bijan Sun MD HEMATOLOGY ORDERABLES Performing Organization Address City/State/[place] [address] (ABNORMAL) Prothrombin Time (12/12/2021 4:51 AM EDT) P athologist Signature PT 14.9 (H) 9.4 - 12.5 [facility] LABORATORY INR 1.3 [facility] Comment: An INR [...] Address City/State/[place] [address] (ABNORMAL) BMP w/fasting Glucose (12/12/2021 4:51 AM EDT) athologist Signature Glucose 152 (H) 65 - 99 [facility] Fasting mg/dL [facility] Comment: ?Fasting* Glucose Interpretive [...] of Diabetes Mellitus, Position Statement from the [place] [employer]. ??Diabete s Care, Volume 33, Supplement 1, Jul 2009 BUN 52 (H) 10 - 20 mg/dL [facility] Creatinine 1.72 (H) 0.80 - 1.50 mg/dL [facility] Sodium 143 135 - 145 mmol/L [facility] Potassium 3.9 3.5 - 5.0 mmol/L [facility] Comment: Please note: ??Patients with WBC >100,00 0 may have falsely elevated Potassium levels. ??For accurate Potassium quantif ication in these patients send serum separator tube (gold top) for subsequent determinations. ??Contact the Clinical Chemistry Laboratory if there are any qu estions. Chloride 105 98 - 107 mmol/L [facility] CO2 21 (L) 22 - 31 mmol/L [facility] Anion Gap 17 (H) 5 - 15 mmol/L [facility] Calcium 8.9 8.5 - 10.5 mg/dL [facility] Estimated GFR 38 (L) >=60 mL/min/1.73 m?? [facility] Comment: This patient? s [...] Cuevas MD CHEMISTRY ORDERABLES Performing Organization Address City/[facility]/ZIP Code Phon e Number [address] Magnesium (12/12/2021 4:51 AM EDT) P athologist Signature Magnesium 1.02 0.69 - 1.07 [facility]/L [facility] Specimen Anatomical Collection Method Collection Time Receive d Time (Source) Location / / Volume Laterality Blood 12/12/2021 4:51 AM 2 5:06 EDT AM EDT Resulting Agency Comment Spec In Lab Iker Cuevas MD CHEMISTRY ORDERABLES Performing Organization Address City/[facility]/[place] [address] POCT Glucose (12/12/2021 3:43 AM EDT) athologist Signature POC Glucose 138 65 - 199 [place] mg/dL [facility] Comment: Supplemental ranges: <140 mg/dL before meals <180 mg/dL all other times of the day Specimen Anatomical Collection Method Collection Time Receive d Time (Source) Location / / Volume Laterality Blood 12/12/2021 3:43 AM 2 3:43 EDT AM EDT Iker Cuevas MD POINT OF CARE TEST ORDERABLE S Performing Organization Address City/State/[place] [address] POCT Glucose (12/11/2021 11:44 PM EDT) athologist Signature POC Glucose 124 65 - 199 [facility] Comment: Supplemental ranges: <140 mg/dL before meals <180 mg/dL all other times of the day Specimen Anatomical Collection Method Collection Time Receive d Time (Source) Location / / Volume Laterality Blood 12/11/2021 11:44 12/11/2021 PM EDT 11:44 PM EDT Iker Cuevas MD POINT OF CARE TEST ORDERABLE S Performing Organization Address City/State/[place] [address] (ABNORMAL) POCT Glucose (12/11/2021 8:12 PM EDT) athologist Signature POC Glucose 200 (H) 65 - 199 [facility] mg/dL [facility] Comment: Supplemental ranges: <140 mg/dL before meals <180 mg/dL all other times of the day Specimen Anatomical Collection Method Collection Time Receive d Time (Source) Location / / Volume Laterality Blood 12/11/2021 8:12 PM 2 8:12 EDT PM EDT Iker Cuevas MD POINT OF CARE TEST ORDERABLE S Performing Organization Address City/State/[place] [address] (ABNORMAL) POCT Glucose (12/11/2021 6:50 PM EDT) athologist Signature POC Glucose 245 (H) 65 - 199 [facility] mg/dL [facility] Comment: Supplemental ranges: <140 mg/dL before meals <180 mg/dL all other times of the day Specimen Anatomical Collection Method Collection Time Receive d Time (Source) Location / / Volume Laterality Blood 12/11/2021 6:50 PM 2 6:50 EDT PM EDT Iker Cuevas MD POINT OF CARE TEST ORDERABLE S Performing Organization Address City/State/[place] [address] (ABNORMAL) POCT Glucose (12/11/2021 4:00 PM EDT) athologist Signature POC Glucose 383 (H) 65 - 199 [facility] mg/dL [facility] Comment: Supplemental ranges: <140 mg/dL before meals <180 mg/dL all other times of the day Specimen Anatomical Collection Method Collection Time Receive d Time (Source) Location / / Volume Laterality Blood 12/11/2021 4:00 PM 2 4:00 EDT PM EDT Iker Cuevas MD POINT OF CARE TEST ORDERABLE S Performing Organization Address City/State/[place] [address] (ABNORMAL) POCT Glucose (12/11/2021 12:01 PM EDT) athologist Signature POC Glucose 342 (H) 65 - 199 [facility] mg/dL [facility] Comment: Supplemental ranges: <140 mg/dL before meals <180 mg/dL all other times of the day Specimen Anatomical Collection Method Collection Time Receive d Time (Source) Location / / Volume Laterality Blood 12/11/2021 12:01 12/11/2021 PM EDT 12:01 PM EDT Iker Cuevas MD POINT OF CARE TEST ORDERABLE S Performing Organization Address City/State/[place] [address] COVID-19 PCR (12/11/2021 10:13 AM EDT) [facility] Method Time Signature SARS-CoV-2 Not Detected Not Detected [facility] Comment: This result should [...] diagnosis of COVID-19 is performed using the Venn[employer] RONNA S-CoV-2 Assay as authorized by the FDA Emergency Use Authorization (EUA). This EUA assay is intended for In-vitro Diagnostic (IVD) use with respiratory sp ecimens such as nasopharyngeal swabs collected from individuals during the ac kasaan phase of infection. This assay is performed based on the instructions for use provided by [employer] and additional guidance provided by CDC and FDA. Testing is performed in the [facility] within the Department of Pathology and Laboratory Medicine at [facility], certified under the Clinical [...] clinical management guidance information are available at [facility] Coronavirus Disease 2019 (COVID-19) webpage under Information fo r Healthcare Professionals (https://www.cdc.gov/coronavirus/2019-nc ov/hcp/index.html) Additional information about this and ot her EUA tests can be found in provider and patient fact sheets at the following FDA website: https://www.fda.gov/medical-devices/ptlqjvvtmtn-jvyhsbg-7211-xsvlv-03-dqqbilynq- onb-vaqzrnbiptzpwd-pyneylc-devices/nytzn-tocfoumxqbs-jtio SARS-Cov-2 RNA Source [employer] Swab [facility] Specimen (Source) Anatomical Collection Method Collection Time Re ceived Time Location / / Volume Laterality Nasopharyngeal Swab 12/11/2021 10:13 11/23 AM EDT 11:16 AM EDT Comment: Symptoms->Surveillance Resulting Agency Comment Spec In Lab Iker Cuevas MD MICROBIOLOGY - GENERAL ORDER [place] Performing Organization Address City/State/ZIP Code Phon e Number [address] POCT Glucose (12/11/2021 7:34 AM EDT) athologist Signature POC Glucose 198 65 - 199 [facility] mg/dL [facility] Comment: Supplemental ranges: <140 mg/dL before meals <180 mg/dL all other times of the day Specimen Anatomical Collection Method Collection Time Receive d Time (Source) Location / / Volume Laterality Blood 12/11/2021 7:34 AM 7:34 EDT AM EDT Iker Cuevas MD POINT OF CARE TEST ORDERABLE S Performing Organization Address City/[facility]/[place] [address] (ABNORMAL) POCT Glucose (12/11/2021 5:07 AM EDT) athologist Signature POC Glucose 208 (H) 65 - 199 [facility] mg/dL [facility] Comment: Supplemental ranges: <140 mg/dL before meals <180 mg/dL all other times of the day Specimen Anatomical Collection Method Collection Time Receive d Time (Source) Location / / Volume Laterality Blood 12/11/2021 5:07 AM 5:07 EDT AM EDT Iker Cuevas MD POINT OF CARE TEST ORDERABLE S Performing Organization Address City/State/[place] [address] (ABNORMAL) Differential, Automated (12/11/2021 4:28 AM EDT) [facility] gist Method Time Signature Neutrophils % 79.6 % [facility] Neutr Abs (ANC) 7.01 (H) 1.70 - [facility] 6.10 [facility] x10(3)/[facility] LABORATORY Lymphocytes % 9.1 % [facility] Lymphocytes Abs 0.8 (L) 0.9 - 3.2 [facility] x10(3)/[facility] LABORATORY Monocytes % 9.2 % [facility] Monocyte Abs 0.8 0.3 - 0.9 [facility] x10(3)/[facility] LABORATORY Eosinophils % 1.3 % [facility] Eosinophils Abs 0.1 0.0 - 0.4 [facility] x10(3)/[facility] LABORATORY Basophils % 0.5 % [facility] Basophils Abs 0.0 0.0 - 0.1 [facility] x10(3)/[facility] LABORATORY Immature Gran % 0.30 % [facility] [place] [facility] LAB[facility]ORY Specimen Anatomical Collection Method Collection Time Receive d Time (Source) Location / / Volume Laterality Blood 12/11/2021 4:28 AM 2 4:37 EDT AM EDT Resulting Agency Comment Spec In Lab Bijan Sun MD HEMATOLOGY ORDERABLES Performing Organization Address City/State/[place] [address] (ABNORMAL) Hemogram (12/11/2021 4:28 AM EDT) Analysis Performed At Patho logist Time Signature WBC 8.8 4.0 - 9.5 [facility] x10(3)/[facility] LABORATORY RBC 4.15 (L) 4.58 - [facility] 5.54 [facility] x10(6)/[facility] LABORATORY Hemoglobin 11.9 (L) 13.7 - [facility] 16.[facility] g/dL [facility] Hematocrit 36.9 (L) 40.5 - [facility] 48.5 % [facility] MCV 88.9 82.9 - [facility] 93.1 [facility] LABORATORY MCH 28.7 27.5 - [facility] RYAN 32.1 pg [facility] MCHC 32.2 32.0 - [facility] 35.7 g/dL [facility] Platelets 211 145 - 357 [facility] x10(3)/[facility] LABORATORY RDWSD 48.3 (H) 36.0 - [facility] RYAN 45.0 [facility] LABORATORY RDWCV 14.8 (H) 11.4 - [facility] RYAN 13.8 % [facility] MPV 9.6 7.6 - 12.9 [facility] LABORATORY nRBC % Auto 0.0 % [facility] nRBC Abs Auto 0.000 0.000 - [facility] RYAN 0.000 [facility] x10(3)/[facility] LABORATORY Specimen Anatomical Collection Method Collection Time Receive d Time (Source) Location / / Volume Laterality Blood 12/11/2021 4:28 AM 2 4:37 EDT AM EDT Resulting Agency Comment Spec In Lab Bijan Sun MD HEMATOLOGY ORDERABLES Performing Organization Address City/State/[place] [address] (ABNORMAL) Prothrombin Time (12/11/2021 4:28 AM EDT) athologist Signature PT 17.7 (H) 9.4 - 12.5 [facility] LABORATORY INR 1.6 [facility] Comment: An INR [...] Cuevas MD HEMATOLOGY ORDERABLES Performing Organization Address City/[facility]/ZIP [place] [address] (ABNORMAL) BMP w/fasting Glucose (12/11/2021 4:28 AM EDT) athologist Signature Glucose 207 (H) 65 - 99 [facility] Fasting mg/dL [facility] Comment: ?Fasting* Glucose Interpretive [...] of Diabetes Mellitus, Position Statement from the [place] [employer]. ??Diabete s Care, Volume 33, Supplement 1, Jul 2009 BUN 49 (H) 10 - 20 mg/dL [facility] Creatinine 1.43 0.80 - 1.50 mg/dL [facility] Sodium 142 135 - 145 mmol/L [facility] Potassium 4.0 3.5 - 5.0 mmol/L [facility] [...] Anion Gap 15 5 - 15 mmol/L [facility] Calcium 8.6 8.5 - 10.5 mg/dL [facility] Estimated GFR 48 (L) >=60 mL/min/1.73 m?? [facility] Comment: This patient? s [...] Address City/State/[place] [address] Magnesium (12/11/2021 4:28 AM EDT) athologist Signature Magnesium 1.04 0.69 - 1.07 [facility] mmol/L [facility] Specimen Anatomical Collection Method Collection Time Receive d Time (Source) Location / / Volume Laterality Blood 12/11/2021 4:28 AM 2 4:37 EDT AM EDT Resulting Agency Comment Spec In Lab Iker Cuevas MD CHEMISTRY ORDERABLES Performing Organization Address City/State/[place] [address] POCT Glucose (12/11/2021 3:58 AM EDT) athologist Signature POC Glucose 189 65 - 199 [facility] mg/dL [facility] Comment: Supplemental ranges: <140 mg/dL before meals <180 mg/dL all other times of the day Specimen Anatomical Collection Method Collection Time Receive d Time (Source) Location / / Volume Laterality Blood 12/11/2021 3:58 AM 2 3:58 EDT AM EDT Iker Cuevas MD POINT OF CARE TEST ORDERABLE S Performing Organization Address City/State/[place] [address] (ABNORMAL) POCT Glucose (12/10/2021 11:45 PM EDT) athologist Signature POC Glucose 205 (H) 65 - 199 [facility] mg/dL [facility] Comment: Supplemental ranges: <140 mg/dL before meals <180 mg/dL all other times of the day Specimen Anatomical Collection Method Collection Time Receive d Time (Source) Location / / Volume Laterality Blood 12/10/2021 11:45 12/10/2021 PM EDT 11:45 PM EDT Iker Cuevas MD POINT OF CARE TEST ORDERABLE S Performing Organization Address City/State/[place] [address] (ABNORMAL) POCT Glucose (12/10/2021 7:54 PM EDT) athologist Signature POC Glucose 225 (H) 65 - 199 [facility] mg/dL [facility] Comment: Supplemental ranges: <140 mg/dL before meals <180 mg/dL all other times of the day Specimen Anatomical Collection Method Collection Time Receive d Time (Source) Location / / Volume Laterality Blood 12/10/2021 7:54 PM 2 7:54 EDT PM EDT Iker Cuevas MD POINT OF CARE TEST ORDERABLE S Performing Organization Address City/[facility]/ZIP Code Phon e Number [address] Potassium (12/10/2021 7:46 PM EDT) athologist Signature Potassium 4.2 3.5 - 5.0 [facility] mmol/L [facility] Comment: Please note: ??Patients [...] Cuevas MD CHEMISTRY ORDERABLES Performing Organization Address City/[facility]/[place] [address] (ABNORMAL) Basic Metabolic Panel (non-fasting) (12/10/2021 6:12 PM EDT) athologist Signature Glucose Lvl 246 (H) 65 - 199 [facility] mg/dL [facility] Comment: Diabetes: >=200 mg/dL plus symp toms BUN 50 (H) 10 - 20 mg/dL [facility] Creatinine 1.39 0.80 - 1.50 mg/dL [facility] Sodium 138 135 - 145 mmol/L [facility] Potassium Not Perf 3.5 - 5.0 [facility] Comment: Unable to quantitate due to sample hemol ysis. ??Sample redraw suggested. Called by: , Read back by: ms.[email or web address], Date/Time:12/10/21 19:06. Please note: ??Patients with WBC >100,00 0 may have falsely elevated Potassium levels. ??For accurate Potassium quantif ication in these patients send serum separator tube (gold top) for subsequent determinations. ??Contact the Clinical Chemistry Laboratory if there are any qu estions. Chloride 100 98 - 107 mmol/L [facility] CO2 22 22 - 31 mmol/L [facility] Anion Gap 16 (H) 5 - 15 mmol/L [facility] Calcium 8.3 (L) 8.5 - 10.5 mg/dL [facility] Estimated GFR 49 (L) >=60 mL/min/1.73 m?? [facility] Comment: This patient? s [...] Address City/State/[place] [address] POCT Glucose (12/10/2021 4:59 PM EDT) athologist Signature POC Glucose 158 65 - 199 [facility] mg/dL [facility] Comment: Supplemental ranges: <140 mg/dL before meals <180 mg/dL all other times of the day Specimen Anatomical Collection Method Collection Time Receive d Time (Source) Location / / Volume Laterality Blood 12/10/2021 4:59 PM 4:59 EDT PM EDT Iker Cuevas MD POINT OF CARE TEST ORDERABLE S Performing Organization Address City/State/[place] [address] (ABNORMAL) POCT Glucose (12/10/2021 12:43 PM EDT) P athologist Signature POC Glucose 241 (H) 65 - 199 [facility] mg/dL [facility] Comment: Supplemental ranges: <140 mg/dL before meals <180 mg/dL all other times of the day Specimen Anatomical Collection Method Collection Time Receive d Time (Source) Location / / Volume Laterality Blood 12/10/2021 12:43 12/10/2021 PM EDT 12:43 PM EDT Iker Cuevas MD POINT OF CARE TEST ORDERABLE S Performing Organization Address City/State/[place] [address] EKG 12 Lead (12/10/2021 11:17 AM EDT) Component Value Ref Range Test Analysis Performed Pathologis t Method Time At Signature Ventricular rate 62 BPM MUSE SYSTEM Atrial Rate 62 BPM MUSE SYSTEM P-R Interval 142 ms MUSE SYSTEM QRS Duration 100 ms MUSE SYSTEM Q-T Interval 434 ms MUSE SYSTEM QTC Calculated 440 ms MUSE SYSTEM (Bezet) Calculated P [place] 34 degrees MUSE SYSTEM Calculated R [place] -39 degrees MUSE SYSTEM Calculated T [place] 92 degrees MUSE SYSTEM INTERPRETATION Normal sinus rhythm MUSE SYSTEM Left axis deviation Minimal voltage criteria for LVH, may be normal variant ( [place]nut product ) Cannot rule out Inferior infarct [...] SYSTEM - 12/10/2021 12:04 PM E DT ?[facility] ? Cardiac Cathete rization/Intervention Report ? Patient Name: Kushal, Don E. ? Procedure Date: 12/10/2021 ? A #: [id number] ? Primary Physician: Vitaliy Nobles ? Case #: [id number] ? File Name: [id number] ? Catheterization Order Number: [id number] ? [facility] ? Final Report [place], [place] ? Patient Name: ? Don E. Stewa rt ? ID#: ?[id number] ? : ?1945 ? Procedure Date: ? December 10, 2021 ? Case #: ? [id number] ? Room: ? 1 ? Case Physician: [...] was ?designated as ASA Class III. e [facility] clinical frailty scale is 5: [...] was Urgent. The indication for ?the director of cardiac cath lab visit is ACS great er than 24 [...] ?3.75 guiding catheter and a 3.5 Fr [place] [facility] [place] 20 Mhz using Manual ?pullback. ??Imaging was [...] ?3.75 guiding catheter and a 3.5 Fr [place] [facility] [place] 20 Mhz using Manual ?pullback. ??Imaging was [...] ?modification of this regimen. C onsult [facility] Interventional Cardiology for ?questions. ?The 1 year bleeding risk as nusrat culated by the PRECISE DAPT score is High ?risk. ?High Bleeding Risk - Anticoagul ation and DAPT: ?- ??Assess ischemic and bleedin g risks using validated risk predictors ?(e.g. CHADS2-VASC, HAS-BLED, NM ECISE DAPT, DAPT Score) ?- ??Keep anticoagulant [...] Procedure Note Vitaliy Nobles MD - 01/14/2022 [facility] Cardiac Catheterization/Intervention Re port Patient Name: Don Fatima Procedure Date: 12/10/2021 A #: [id number] Primary Physician: Vitaliy Nobles Case #: [id number] File Name: [id number] Catheterization Order Number: [id number] [facility] Final Report [place], [place] Patient Name: Don Fatima ID#: [...] e was Urgent. The indication for the director of cardiac cath lab visit is ACS greater than 24 hrs [...] and a 3.5 Fr [place] [facility] [place] 20 Mhz using Manual pullback. Imaging was [...] and a 3.5 Fr [place] [facility] [place] 20 Mhz using Manual pullback. Imaging was successful. Image quality was good. The distal LM showed moderate diffuse atherosclero tic plaque. Post Intervention: The stent was well e xpanded and apposed. Indication for Intervention: Coronary intervention was indicated for primary therapy for an acute myocardial infarction. The priority for the procedure was Urgent. [facility] for the procedure was N [...] POC Glucose 262 (H) 65 - 199 [facility] mg/dL [facility] Comment: Supplemental ranges: <140 mg/dL before meals <180 mg/dL all other times of the day Specimen Anatomical Collection Method Collection Time Receive d Time (Source) Location / / Volume Laterality Blood 12/10/2021 10:30 12/10/2021 AM EDT 10:30 AM EDT Iker Cuevas MD POINT OF CARE TEST ORDERABLE S Performing Organization Address City/State/[place] [address] (ABNORMAL) POCT Glucose (12/10/2021 9:48 AM EDT) athologist Signature POC Glucose 279 (H) 65 - 199 [facility] mg/dL [facility] Comment: Supplemental ranges: <140 mg/dL before meals <180 mg/dL all other times of the day Specimen Anatomical Collection Method Collection Time Receive d Time (Source) Location / / Volume Laterality Blood 12/10/2021 9:48 AM 2 9:48 EDT AM EDT Iker Cuevas MD POINT OF CARE TEST ORDERABLE S Performing Organization Address City/State/[place] [address] (ABNORMAL) POCT Glucose (12/10/2021 9:07 AM EDT) athologist Signature POC Glucose 268 (H) 65 - 199 [facility] mg/dL [facility] Comment: Supplemental ranges: <140 mg/dL before meals <180 mg/dL all other times of the day Specimen Anatomical Collection Method Collection Time Receive d Time (Source) Location / / Volume Laterality Blood 12/10/2021 9:07 AM 2 9:07 EDT AM EDT Iker Cuevas MD POINT OF CARE TEST ORDERABLE S Performing Organization Address City/State/[place] [address] (ABNORMAL) Point of Care Blood Gas Historical (12/10/2021 9:04 AM EDT) [facility] Method Time Signature POC pH 7.40 7.35 - [facility] 7.45 [facility] POC PCO2 40 35 - 45 [facility] LABORATORY POC PO2 63 (L) 85 - 104 [facility] LABORATORY POC Base Excess 0.0 -3.0 - 3.0 [facility] K mmol/L [facility] POC HCO3 24.8 20.0 - [facility] 26.0 [facility] mmol/ HOSPITAL LABORATORY POC Sodium 143 135 - 145 [facility] mmol/L [facility] POC Potassium 3.7 3.5 - 5.0 [facility] mmol/L [facility] POC Ionized Ca 1.07 (L) 1.15 - [facility] 1.33 [facility] mmol/[facility] LABORATORY POC Hematocrit 30.0 (L) 40.0 - [facility] 51.0 % [facility] POC Calc Hgb 10.2 (L) 13.7 - [facility] 17.5 g/dL [facility] Comment: The calculation of hemoglobin f rom hematocrit assumes a normal MCHC. POC Bgas Loc CC LAB [facility] LABORATORY Specimen Anatomical Collection Method Collection Time Receive d Time (Source) Location / / Volume Laterality Blood 12/10/2021 9:04 AM 2 EDT 12:00 PM EDT Ifeanyi Truong MD CHEMISTRY ORDERABLES Performing Organization Address City/[facility]/[place] [address] (ABNORMAL) POCT Glucose (12/10/2021 7:19 AM EDT) athologist Signature POC Glucose 274 (H) 65 - 199 [facility] mg/dL [facility] Comment: Supplemental ranges: <140 mg/dL before meals <180 mg/dL all other times of the day Specimen Anatomical Collection Method Collection Time Receive d Time (Source) Location / / Volume Laterality Blood 12/10/2021 7:19 AM 2 7:19 EDT AM EDT Iker Cuevas MD POINT OF CARE TEST ORDERABLE S Performing Organization Address City/[facility]/[place] [address] Heparin (unfractionated) Level (12/10/2021 [...] Address City/State/Z[place] [address] (ABNORMAL) Differential, Automated (12/10/2021 4:25 AM EDT) [facility] Method Time Signature Neutrophils % 79.8 % [facility] Neutr Abs (ANC) 7.47 (H) 1.70 - [facility] 6.10 [facility] x10(3)/[facility] LABORATORY Lymphocytes % 10.6 % [facility] Lymphocytes Abs 1.0 0.9 - 3.2 [facility] x10(3)/[facility] LABORATORY Monocytes % 8.4 % [facility] Monocyte Abs 0.8 0.3 - 0.9 [facility] x10(3)/[facility] LABORATORY Eosinophils % 0.6 % [facility] Eosinophils Abs 0.1 0.0 - 0.4 [facility] x10(3)/[facility] LABORATORY Basophils % 0.2 % [facility] Basophils Abs 0.0 0.0 - 0.1 [facility] x10(3)/[facility] LABORATORY Immature Gran % 0.40 % [facility] [place] [facility] Specimen Anatomical Collection Method Collection Time Receive d Time (Source) Location / / Volume Laterality Blood 12/10/2021 4:25 AM 2 4:34 EDT AM EDT Resulting Agency Comment Spec In Lab Morgan BROWN HEMATOLOGY ORDERABLES Performing Organization Address City/State/Z[place] [address] (ABNORMAL) Hemogram (12/10/2021 4:25 AM EDT) Analysis Performed At Patho logist Time Signature WBC 9.4 4.0 - 9.5 [facility] x10(3)/[facility] LABORATORY RBC 3.81 (L) 4.58 - [facility] 5.54 [facility] x10(6)/[facility] LABORATORY Hemoglobin 11.1 (L) 13.7 - [facility] 16.5 g/dL [facility] Hematocrit 34.0 (L) 40.5 - [facility] 48.5 % [facility] MCV 89.2 82.9 - [facility] 93.1 [facility] LABORATORY MCH 29.1 27.5 - [facility] 32.1 pg [facility] MCHC 32.6 32.0 - [facility] 35.7 g/dL [facility] Platelets 183 145 - 357 [facility] x10(3)/[facility] LABORATORY RDWSD 49.9 (H) 36.0 - [facility] RYAN 45.0 [facility] LABORATORY RDWCV 15.2 (H) 11.4 - [facility]AN 13.8 % [facility] MPV 9.8 7.6 - 12.9 [facility] LABORATORY nRBC % Auto 0.0 % [facility] LABORATORY nRBC Abs Auto 0.000 0.000 - [facility] RYAN 0.000 [facility] x10(3)/[facility] LABORATORY Specimen Anatomical Collection Method Collection Time Receive d Time (Source) Location / / Volume Laterality Blood 12/10/2021 4:25 AM 2 4:34 EDT AM EDT Resulting Agency Comment Spec In Lab Morgan BROWN HEMATOLOGY ORDERABLES Performing Organization Address City/State/[place] [address] (ABNORMAL) Prothrombin Time (12/10/2021 4:25 AM EDT) P athologist Signature PT 20.0 (H) 9.4 - 12.5 [facility] LABORATORY INR 1.7 [facility] LABORATORY Comment: An INR [...] Address City/State/[place] [address] (ABNORMAL) BMP w/fasting Glucose (12/10/2021 4:25 AM EDT) P athologist Signature Glucose 210 (H) 65 - 99 [facility] Fasting mg/dL [facility] Comment: ?Fasting* Glucose Interpretive [...] of Diabetes Mellitus, Position Statement from the [place] [employer]. ??Diabete s Care, Volume 33, Supplement 1, Jul 2009 BUN 54 (H) 10 - 20 mg/dL [facility] LABORATORY Creatinine 1.52 (H) 0.80 - 1.50 mg/dL [facility] Sodium 140 135 - 145 mmol/L [facility] Potassium 3.9 3.5 - 5.0 mmol/L [facility] mmol/L [facility] LABORATORY Calcium 8.0 (L) 8.5 - 10.5 mg/dL [facility] Estimated GFR 44 (L) >=60 mL/min/1.73 m?? [facility] Comment: This patient? s [...] Address City/State/[place] [address] Magnesium (12/10/2021 4:25 AM EDT) athologist Signature Magnesium 0.95 0.69 - 1.07 [facility]AN mmol/L [facility] Specimen Anatomical Collection Method Collection Time Receive d Time (Source) Location / / Volume Laterality Blood 12/10/2021 4:25 AM 2 4:34 EDT AM EDT Resulting Agency Comment Spec In Lab Iker Cuevas MD CHEMISTRY ORDERABLES Performing Organization Address City/State/ZIP Code Phon e Number [address] POCT Glucose (12/10/2021 1:58 AM EDT) athologist Signature POC Glucose 164 65 - 199 [facility] mg/dL [facility] Comment: Supplemental ranges: <140 mg/dL before meals <180 mg/dL all other times of the day Specimen Anatomical Collection Method Collection Time Receive d Time (Source) Location / / Volume Laterality Blood 12/10/2021 1:58 AM 2 1:58 EDT AM EDT Iker Cuevas MD POINT OF CARE TEST ORDERABLE S Performing Organization Address City/[facility]/[place] [address] (ABNORMAL) POCT Glucose (12/09/2021 9:02 PM EDT) athologist Signature POC Glucose 313 (H) 65 - 199 [place] mg/dL [facility] LABORATORY Comment: Supplemental ranges: <140 mg/dL before meals <180 mg/dL all other times of the day Specimen Anatomical Collection Method Collection Time Receive d Time (Source) Location / / Volume Laterality Blood 12/09/2021 9:02 PM 2 9:02 EDT PM EDT Iker Cuevas MD POINT OF CARE TEST ORDERABLE S Performing Organization Address City/State/ZIP Code Phon e Number [address] Heparin (unfractionated) Level (12/09/2021 7:30 PM EDT) athologist Signature Heparin UFH 0.48 IU/mL [facility] LABORATORY Comment: Heparin [...] Address City/State/[place] [address] (ABNORMAL) Basic Metabolic Panel (non-fasting) (12/09/2021 7:30 PM EDT) athologist Signature Glucose Lvl 372 (H) 65 - 199 [facility] mg/dL [facility]OR[facility] Comment: Diabetes: >=200 mg/dL plus symp toms BUN 56 (H) 10 - 20 mg/dL [facility]ORY Creatinine 1.75 (H) 0.80 - 1.50 mg/dL [facility] LAB[facility]ORY Sodium 138 135 - 145 mmol/L [facility] Potassium 4.2 3.5 - 5.0 mmol/L [facility] Comment: Please note: ??Patients with WBC >100,00 0 may have falsely elevated Potassium levels. ??For accurate Potassium quantif ication in these patients send serum separator tube (gold top) for subsequent determinations. ??Contact the Clinical Chemistry Laboratory if there are any qu estions. Chloride 102 98 - 107 mmol/L [facility] CO2 22 22 - 31 mmol/L [facility] Anion Gap 14 5 - 15 mmol/L [facility]ORY Calcium 8.1 (L) 8.5 - 10.5 mg/dL [facility] Estimated GFR 37 (L) >=60 mL/min/1.73 m?? [facility] Comment: This patient? s [...] Address City/State/[place] [address] (ABNORMAL) POCT Glucose (12/09/2021 6:34 PM EDT) P athologist Signature POC Glucose 408 (H) 65 - 199 [facility] mg/dL [facility] Comment: Supplemental ranges: <140 mg/dL before meals <180 mg/dL all other times of the day Specimen Anatomical Collection Method Collection Time Receive d Time (Source) Location / / Volume Laterality Blood 12/09/2021 6:34 PM 2 6:34 EDT PM EDT Iker Cuevas MD POINT OF CARE TEST ORDERABLE S Performing Organization Address City/State/[place] [address] (ABNORMAL) POCT Glucose (12/09/2021 6:32 PM EDT) athologist Signature POC Glucose 356 (H) 65 - 199 [facility] Comment: Supplemental ranges: <140 mg/dL before meals <180 mg/dL all other times of the day Specimen Anatomical Collection Method Collection Time Receive d Time (Source) Location / / Volume Laterality Blood 12/09/2021 6:32 PM 2 6:32 EDT PM EDT Iker Cuevas MD POINT OF CARE TEST ORDERABLE S Performing Organization Address City/[facility]/[place] [address] (ABNORMAL) POCT Glucose (12/09/2021 4:19 PM EDT) athologist Signature POC Glucose 347 (H) 65 - 199 [facility] RYAN mg/dL [facility]OR[facility] Comment: Supplemental ranges: <140 mg/dL before meals <180 mg/dL all other times of the day Specimen Anatomical Collection Method Collection Time Receive d Time (Source) Location / / Volume Laterality Blood 12/09/2021 4:19 PM 2 4:19 EDT PM EDT Iker Cuevas MD POINT OF CARE TEST ORDERABLE S Performing Organization Address City/[facility]/[place] [address] Heparin (unfractionated) Level (12/09/2021 1:29 PM EDT) athologist Signature Heparin UFH 0.42 IU/mL [facility] LABORATORY Comment: Heparin [...] Address City/State/[place] [address] (ABNORMAL) POCT Glucose (12/09/2021 12:02 PM EDT) P athologist Signature POC Glucose 235 (H) 65 - 199 [facility] mg/dL [facility] Comment: Supplemental ranges: <140 mg/dL before meals <180 mg/dL all other times of the day Specimen Anatomical Collection Method Collection Time Receive d Time (Source) Location / / Volume Laterality Blood 12/09/2021 12:02 12/09/2021 PM EDT 12:02 PM EDT Iker Cuevas MD POINT OF CARE TEST ORDERABLE S Performing Organization Address City/[facility]/[place] [address] (ABNORMAL) POCT Glucose (12/09/2021 9:44 AM EDT) P athologist Signature POC Glucose 214 (H) 65 - 199 [facility] mg/dL [facility] Comment: Supplemental ranges: <140 mg/dL before meals <180 mg/dL all other times of the day Specimen Anatomical Collection Method Collection Time Receive d Time (Source) Location / / Volume Laterality Blood 12/09/2021 9:44 AM 2 9:44 EDT AM EDT Iker Cuevas MD POINT OF CARE TEST ORDERABLE S Performing Organization Address City/State/ZIP Code [place] [facility] [place] [address] EKG 12 Lead (12/09/2021 7:57 AM EDT) Component Value Ref Range Test Analysis Performed Pathologis t Method Time At Signature Ventricular rate 101 BPM MUSE SYSTEM Atrial Rate 101 BPM MUSE SYSTEM P-R Interval 150 ms MUSE SYSTEM QRS Duration 112 ms MUSE SYSTEM Q-T Interval 364 ms MUSE SYSTEM QTC Calculated 471 ms MUSE SYSTEM (Bezet) Calculated P [place] 59 degrees MUSE SYSTEM Calculated R [place] -42 degrees MUSE SYSTEM Calculated T [place] 102 degrees MUSE SYSTEM INTERPRETATION Sinus tachycardia Occasional Premature ventricular com plexes MUSE SYSTEM Left axis deviation 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) Abnormal ECG When compared with ECG of 08-DEC-2021 16:40, Premature ventricular complexes are now Present Confirmed by MD Jim, Yoon ([id number]) on 12/10/2021 4:55:06 PM Specimen Anatomical Collection Method Collection Time Receive d Time (Source) Location / / Volume Laterality 12/09/2021 7:57 AM 2 4:55 EDT PM EDT Iker Cuevas MD ECG ORDERABLES Performing Organization Address City/State/ZIP Code Phon e Number MUSE SYSTEM (ABNORMAL) POCT Glucose (12/09/2021 7:28 AM EDT) P athologist Signature POC Glucose 263 (H) 65 - 199 [facility] mg/dL [facility]ORY Comment: Supplemental ranges: <140 mg/dL before meals <180 mg/dL all other times of the day Specimen Anatomical Collection Method Collection Time Receive d Time (Source) Location / / Volume Laterality Blood 12/09/2021 7:28 AM 2 7:28 EDT AM EDT Iker Cuevas MD POINT OF CARE TEST ORDERABLE S Performing Organization Address City/State/ZIP Code Phon e Number [place] [id number] (ABNORMAL) Hemoglobin A1c (12/09/2021 [...] into estimated average glucose values. ??Diabetes Care 2008:31(8):2783-2904. Specimen Anatomical Collection Method Collection Time Receive d Time (Source) Location / / Volume Laterality Blood Venous Draw / 12/09/2021 6:18 AM 12/10/19 22 Unknown EDT 12:24 PM EDT Resulting Agency Comment Spec In Lab Migdalia BROWN CHEMISTRY ORDERABLES Performing Organization Address City/State/[place] [address] (ABNORMAL) Prothrombin Time (12/09/2021 6:18 AM EDT) athologist Signature PT 26.6 (H) 9.4 - 12.5 [facility] LABORATORY INR 2.3 [facility] LABORATORY Comment: An INR [...] Address City/State/[place] [address] Heparin (unfractionated) Level (12/09/2021 6:18 AM EDT) athologist Signature Heparin UFH 0.24 IU/mL [facility] LABORATORY Comment: Heparin [...] Address City/State/[place] [address] (ABNORMAL) Differential, Automated (12/09/2021 6:18 AM EDT) [facility] Method Time Signature Neutrophils % 91.5 % [facility] LABORATORY Neutr Abs (ANC) 15.78 (H) 1.70 - [facility] 6.10 [facility] x10(3)/[facility] L LABORATORY Lymphocytes % 2.9 % [facility] LABORATORY Lymphocytes Abs 0.5 (L) 0.9 - 3.2 [facility] x10(3)/[facility] LABORATORY Monocytes % 4.9 % [facility] LABORATORY Monocyte Abs 0.8 0.3 - 0.9 [facility] x10(3)/[facility] LABORATORY Eosinophils % 0.0 % [facility] LABORATORY Eosinophils Abs 0.0 0.0 - 0.4 [facility] x10(3)[facility] LABORATORY Basophils % 0.2 % [facility] LABORATORY Basophils Abs 0.0 0.0 - 0.1 [facility] x10(3)/[facility] LABORATORY Immature Gran % 0.50 % HOLDEN [...] Address City/State/[place] [address] (ABNORMAL) Hemogram (12/09/2021 6:18 AM EDT) Analysis Performed At Patho logist Time Signature WBC 17.2 (H) 4.0 - 9.5 [facility] x[facility](3[facility] LABORATORY RBC 4.32 (L) 4.58 - [place] 5.54 [facility] x10(6)/[facility] LABORATORY Hemoglobin 12.6 (L) 13.7 - [facility] 16.5 g/dL [facility] Hematocrit 38.9 (L) 40.5 - [facility] 48.5 % [facility] MCV 90.0 82.9 - [facility] 93.1 [facility] LABORATORY MCH 29.2 27.5 - [place] 32.1 pg [facility]ORATORY MCHC 32.4 32.0 - [facility] RYAN 35.7 g/dL [facility] LABORATORY Platelets 193 145 - 357 [facility] x10(3)/[facility] LABORATORY RDWSD 50.4 (H) 36.0 - [facility] RYAN 45.0 [facility] LABORATORY RDWCV 15.2 (H) 11.4 - [facility] 13.8 % [facility]ORATORY MPV 9.5 7.6 - 12.9 [facility] LABORATORY nRBC % Auto 0.0 % [facility] LABORATORY nRBC Abs Auto 0.000 0.000 - [facility] RYAN 0.000 [facility] x10(3)/[facility] LABORATORY Specimen Anatomical Collection Method Collection Time Receive d Time (Source) Location / / Volume Laterality Blood 12/09/2021 6:18 AM 6:33 EDT AM EDT Resulting Agency Comment Spec In Lab Morgan BROWN HEMATOLOGY ORDERABLES Performing Organization Address City/State/[place] [address] Lipid Panel (Reflex Direct LDL) (12/09/2021 6:18 AM EDT) P athologist Signature Chol, Total 105 mg/dL [facility] LABORATORY Comment: Lower Risk: <200 mg/dL Average Risk: 200-239 mg/dL Higher Risk: >fr=929 mg/dL Triglycerides 133 mg/dL [facility] LABORATORY Comment: Average Risk/Lower Risk: <150 mg/dL Borderline High Risk: 150-199 mg/dL High Risk: 200-499 mg/dL Very High Risk: >mm=576 mg/dL HDL 42 mg/dL [facility] LABORATORY Comment: Males: ?? Higher Risk: <40 mg/dL Females: ?? Higher Risk: <50 mg/dL LDL Cholesterol 36 mg/dL [facility] LABORATORY Comment: Lowest Risk: <100 mg/dL Lower Risk: 100-129 mg/dL Borderline High Risk: 130-159 mg/dL High Risk: 160-189 mg/dL Very High Risk: >cc=112 mg/dL Chol/HDL Ratio 2.5 ratio [facility] LABORATORY Lipid Interpretation See Note [facility] LABORATORY Comment: Lipid management should be guided by a p atient? s ASCVD risk, goals and preferences. ACC/AHA Guidelines recommend high intens ity statin if clinical ASCVD or LDL greater than or equal to 190 mg/dL. [email or web address] Adults aged 40-75 with LDL 70-189 mg/dL should have their 10 year ASCVD risk estimated with the ACC/AHA ASCVD risk es timator http://tools.acc.org/RBKPM-Ezic-Oduypmcl r/ Statin should be discussed if risk [...] Cuevas MD CHEMISTRY ORDERABLES Performing Organization Address City/[facility] [place] [address] TSH (12/09/2021 6:18 AM EDT) P athologist Signature TSH 1.60 0.27 - 4.20 [facility] ZHAORYAN mcIU/mL [facility] LABORATORY Comment: Reference Interval (mcIU/mL): Females: ??First Trimester: 0.23-3.88 ??Second Trimester: 0.22-3.90 ??Third Trimester: 0.44-4.66 Specimen Anatomical Collection Method Collection Time Receive d Time (Source) Location / / Volume Laterality Blood 12/09/2021 6:18 AM 2 6:33 EDT AM EDT Resulting Agency Comment Spec In Lab Iker Cuevas MD CHEMISTRY ORDERABLES Performing Organization Address [facility] Phon e Number [address] Hepatic Function Panel (12/09/2021 6:18 AM EDT) athologist Signature Total Protein 7.3 6.1 - 8.0 [place] g/dL [facility] Albumin 4.2 3.2 - 5.2 [place] g/dL [facility] AST 25 0 - 39 [place] unit/L [facility] ALT 15 0 - 55 [place] unit/L [facility] Alk Phos 75 40 - 130 [place] unit/L [facility] Total 1.1 0.2 - 1.3 [place] Bilirubin mg/dL [facility]OR[facility] Bili, Direct 0.2 0.0 - 0.3 [place] mg/dL [facility]OR[facility]ORY Specimen Anatomical Collection Method Collection Time Receive d Time (Source) Location / / Volume Laterality Blood 12/09/2021 6:18 AM 2 6:33 EDT AM EDT Resulting Agency Comment Spec In Lab Iker Cuevas MD CHEMISTRY ORDERABLES Performing Organization Address City/[facility]/ZIP [place] [address] (ABNORMAL) BMP w/fasting Glucose (12/09/2021 6:18 AM EDT) athologist Signature Glucose 235 (H) 65 - 99 [facility] Fasting mg/dL [facility] Comment: ?Fasting* Glucose Interpretive [...] of Diabetes Mellitus, Position Statement from the [place] [employer]. ??Diabete s Care, Volume 33, Supplement 1, Jul 2009 BUN 49 (H) 10 - 20 mg/dL [facility] LABORATORY Creatinine 1.33 0.80 - 1.50 mg/dL [facility] LABORATORY Sodium 139 135 - 145 mmol/L [facility] Potassium 4.2 3.5 - 5.0 mmol/L [facility] [...] mmol/L [facility] LABORATORY Calcium 8.8 8.5 - 10.5 mg/dL [facility] Estimated GFR 52 (L) >=60 mL/min/1.73 m?? [facility] LABOR[facility]ORY Comment: This patient? s [...] Address City/State/[place] [address] Magnesium (12/09/2021 6:18 AM EDT) P athologist Signature Magnesium 0.81 0.69 - 1.07 [facility] mmol/L [facility] LABOR[facility]ORY Specimen Anatomical Collection Method Collection Time Receive d Time (Source) Location / / Volume Laterality Blood 12/09/2021 6:18 AM 2 6:33 EDT AM EDT Resulting Agency Comment Spec In Lab Iker Cuevas MD CHEMISTRY ORDERABLES Performing Organization Address City/[facility] [place] [address] (ABNORMAL) Troponin (12/09/2021 6:18 AM EDT) athologist Signature Troponin-T 1.13 (H) 0.00 - [facility] 0.00 ng/mL [facility]ORY Comment: The 99th percentile for Troponin T is le ss than 0.01 ng/mL, any detectable cTnT concentration using this assay should be considered elevated. According to the third universal definit ion of myocardial infarction the following criteria with a clinical prese ntation consistent with acute myocardial ischemia meets the diagnosis for a myocardial infarction (IA). Detection of a rise and/or fall of [...] additional sample may be indicated. Reference: Third Lamb[place]ok Definition of Myocardial Infarction. Journal of the [place] [employer] 2012;60:1581-98 Specimen Anatomical Collection Method Collection Time Receive d Time (Source) Location / / Volume Laterality Blood 12/09/2021 6:18 AM 6:33 EDT AM EDT Resulting Agency Comment Spec In Lab Iker Cuevas MD CHEMISTRY ORDERABLES Performing Organization Address City/State/ZIP Code Phon e Number [place] [id number]OS[address] XR Chest One View [...] questions please contact the health patient care technician that requested your imaging first. ? Electronically signed by: Yoselin White, [facility] ([phone]), at 12/09/2021 5:35 AM Narrative 12/09/2021 5:35 [...] questions please contact the health patient care technician that requested your imaging first. Electronically signed by: Yoselin White, [facility] ([phone]), at 12/09/2021 5:35 AM Amber Sanches MD IMG DX ORDERABLES (ABNORMAL) BLOOD GAS 2 ARTERIAL (12/09/2021 5:14 AM EDT) Analysis Performed At Patho logist Time Signature pH Art 7.43 7.35 - [facility] 7.45 [facility]ORY pCO2 Art 36 35 - 45 [facility] LABORATORY pO2 Art 67 (L) 85 - 104 [facility] LABORATORY HCO3 Art 23.4 20.0 - [facility] 26.0 [facility] mmol/L [facility] LABORATORY BE Art -0.9 -3.0 - 3.0 [facility] mmol/L [facility] Hgb Blood Gas 13.2 (L) 13.7 - [facility] 16.5 g/dL [facility] O2HB Art 91.3 (L) 94.0 - [facility] 97.0 % [facility] COHB Art 0.4 % [facility] LABORATORY Comment: Nonsmokers: 0.5-1.5% COHB Smokers: Variable, but usually less than 10% Toxic: 20-30% COHB Lethal: Greater than 60% COHB METHB Art 0.4 <=1.5 % [facility] Na Whole Blood 138 135 - 145 mmol/L [facility] K Whole Blood 4.1 3.5 - 5.0 mmol/L [facility] LABORATORY Comment: Please note: Patients with WBC >100,000 may have falsely elevated Potassium levels. Contact the Clinical Chemistry L aboratory if there are any questions. ICa Whole Blood 1.09 (L) 1.15 - 1.33 mmol/L [facility] LABORATORY Comment: Note: ??Total bilirubin higher than 20 m g/dL may lead to falsely low ionized calcium. CL Whole Blood 104 98 - 107 mmol/L [facility] LABORATORY Gluc Whole Bld 223 (H) 65 - 199 mg/dL [facility] LABORATORY Comment: Diabetes: >=200 mg/dL plus symp toms. Lactate WB 2.7 (H) 0.5 - 2.2 mmol/L [facility] LABORATORY FIO2 Art 35 % [facility] Flow Art 8.[address] [facility] PF Ratio Art [address] [facility] LABORATORY Specimen Anatomical Collection Method Collection Time Receive d Time (Source) Location / / Volume Laterality Blood 12/09/2021 5:14 AM 2 5:14 EDT AM EDT Iker Cuevas MD CHEMISTRY ORDERABLES Performing Organization Address City/State/[place] [address] POCT Glucose (12/09/2021 4:46 AM EDT) athologist Signature POC Glucose 198 65 - 199 [place] [facility] mg/dL [facility]OR[facility]ORY Comment: Supplemental ranges: <140 mg/dL before meals <180 mg/dL all other times of the day Specimen Anatomical Collection Method Collection Time Receive d Time (Source) Location / / Volume Laterality Blood 12/09/2021 4:46 AM 2 4:46 EDT AM EDT Iker Cuevas MD POINT OF CARE TEST ORDERABLE S Performing Organization Address City/State/[place] [address] (ABNORMAL) POCT Glucose (12/09/2021 3:01 AM EDT) athologist Signature POC Glucose 225 (H) 65 - 199 [facility] ZHAORYAN mg/dL [facility] Comment: Supplemental ranges: <140 mg/dL before meals <180 mg/dL all other times of the day Specimen Anatomical Collection Method Collection Time Receive d Time (Source) Location / / Volume Laterality Blood 12/09/2021 3:01 AM 2 3:01 EDT AM EDT Iker Cuevas MD POINT OF CARE TEST ORDERABLE S Performing Organization Address City/State/[place] [address] (ABNORMAL) POCT Glucose (12/08/2021 10:55 PM EDT) athologist Signature POC Glucose 327 (H) 65 - 199 [place] mg/dL [facility]OR[facility]ORY Comment: Supplemental ranges: <140 mg/dL before meals <180 mg/dL all other times of the day Specimen Anatomical Collection Method Collection Time Receive d Time (Source) Location / / Volume Laterality Blood 12/08/2021 10:55 12/08/2021 PM EDT 10:55 PM EDT Iker Cuevas MD POINT OF CARE TEST ORDERABLE S Performing Organization Address City/[facility]/[place] [address] Heparin (unfractionated) Level (12/08/2021 10:03 PM EDT) athologist Signature Heparin UFH 0.18 IU/mL [facility] LABORATORY Comment: Heparin [...] Cuevas MD HEMATOLOGY ORDERABLES Performing Organization Address City/[facility]/[place] [address] (ABNORMAL) Troponin (12/08/2021 10:03 PM EDT) athologist Signature Troponin-T 0.92 (H) 0.00 - [facility] 0.00 ng/mL [facility] Comment: The 99th percentile for Troponin T is le ss than 0.01 ng/mL, any detectable cTnT concentration using this assay should be considered elevated. According to the third universal definit ion of myocardial infarction the following criteria with a clinical prese ntation consistent with acute myocardial ischemia meets the diagnosis for a myocardial infarction (IA). Detection of a rise and/or fall of [...] additional sample may be indicated. Reference: Third Lambro[place] Definition of Myocardial Infarction. Journal of the [place] [employer] 2012;60:1581-98 Specimen Anatomical Collection Method Collection Time Receive d Time (Source) Location / / Volume Laterality Blood 12/08/2021 10:03 12/08/2021 PM EDT 10:31 PM EDT Resulting Agency Comment Spec In Lab Iker Cuevas MD CHEMISTRY ORDERABLES Performing Organization Address City/State/ZIP Code Phon e Number [address] (ABNORMAL) POCT Glucose (12/08/2021 8:22 PM EDT) athologist Signature POC Glucose 429 (H) 65 - 199 [facility] mg/dL [facility] Comment: Supplemental ranges: <140 mg/dL before meals <180 mg/dL all other times of the day Specimen Anatomical Collection Method Collection Time Receive d Time (Source) Location / / Volume Laterality Blood 12/08/2021 8:22 PM 8:22 EDT PM EDT Iker Cuevas MD POINT OF CARE TEST ORDERABLE S Performing Organization Address City/[facility]/[place] [address] (ABNORMAL) POCT Glucose (12/08/2021 7:06 PM EDT) athologist Signature POC Glucose 442 (H) 65 - 199 [place] [facility]YAN mg/dL [facility] Comment: Supplemental ranges: <140 mg/dL before meals <180 mg/dL all other times of the day Specimen Anatomical Collection Method Collection Time Receive d Time (Source) Location / / Volume Laterality Blood 12/08/2021 7:06 PM 2 7:06 EDT PM EDT Iker Cuevas MD POINT OF CARE TEST ORDERABLE S Performing Organization Address City/[facility]/ZIP Code Phon e Number [address] Magnesium (12/08/2021 6:02 PM EDT) P athologist Signature Magnesium 0.86 0.69 - 1.07 [facility] mmol/L [facility] LABORATORY Specimen Anatomical Collection Method Collection Time Receive d Time (Source) Location / / Volume Laterality Blood 12/08/2021 6:02 PM 2 6:36 EDT PM EDT Resulting Agency Comment Spec In Lab Iker Cuevas MD CHEMISTRY ORDERABLES Performing Organization Address City/State/[place] [address] HOSPITAL [address] Drive (ABNORMAL) Basic Metabolic Panel (non-fasting) (12/08/2021 6:02 PM EDT) P athologist Signature Glucose Lvl 392 (H) 65 - 199 [facility] Comment: Diabetes: >=200 mg/dL plus symp toms BUN 41 (H) 10 - 20 mg/dL [facility]OR[facility] Creatinine 1.44 0.80 - 1.50 mg/dL [facility] Sodium 138 135 - 145 [...] 107 mmol/L [facility] CO2 20 (L) 22 - 31 mmol/L [facility] Anion Gap 16 (H) 5 - 15 mmol/L [facility] Calcium 8.6 8.5 - 10.5 mg/dL [facility] Estimated GFR 47 (L) >=60 mL/min/1.73 m?? [facility] Comment: This patient? s [...] Address City/State/[place] [address] (ABNORMAL) Differential, Automated (12/08/2021 6:02 PM EDT) [facility] gist Method Time Signature Neutrophils % 89.5 % [facility]OR[facility] Neutr Abs (ANC) 13.97 (H) 1.70 - [facility] 6.10 [facility] x10(3)/[facility] L LABORATORY Lymphocytes % 3.7 % [facility]OR[facility] Lymphocytes Abs 0.6 (L) 0.9 - 3.2 [facility] x10(3)/[facility] LABORATORY Monocytes % 6.1 % [facility] Monocyte Abs 1.0 (H) 0.3 - 0.9 [facility] x10(3)/[facility] LABORATORY Eosinophils % 0.0 % [facility] Eosinophils Abs 0.0 0.0 - 0.4 [facility] x10(3)/[facility] LABORATORY Basophils % 0.2 % [facility] Basophils Abs 0.0 0.0 - 0.1 [facility] x10(3)/[facility] LABORATORY Immature Gran % 0.50 % HOLDEN [...] Organization Address City/State/ZIP Code Phon e Number [place] [phone]OSP[address] Drive (ABNORMAL) Hemogram (12/08/2021 6:02 PM EDT) Analysis Performed At Patho logist Time Signature WBC 15.6 (H) 4.0 - 9.5 [facility] x10(3)/[facility] LABORATORY RBC 4.05 (L) 4.58 - [facility] 5.54 [facility] x10(6)/[facility] LABORATORY Hemoglobin 11.8 (L) 13.7 - [facility] 16.5 g/dL [facility] Hematocrit 35.8 (L) 40.5 - [facility] 48.5 % [facility] MCV 88.4 82.9 - [facility] 93.1 fL [facility] MCH 29.1 27.5 - [facility] 32.1 pg [facility] MCHC 33.0 32.0 - [facility] 35.7 g/dL [facility] Platelets 178 145 - 357 [facility] x10(3)/[facility] LABORATORY RDWSD 49.3 (H) 36.0 - [facility] 45.0 [facility] LABORATORY RDWCV 15.1 (H) 11.4 - [facility] 13.8 % [facility] MPV 10.4 7.6 - 12.9 [facility] LABORATORY nRBC % Auto 0.0 % [facility]OR[facility] nRBC Abs Auto 0.000 0.000 - [facility] 0.000 [facility] x10(3)/[facility] LABORATORY Specimen Anatomical Collection Method Collection Time Receive d Time (Source) Location / / Volume Laterality Blood 12/08/2021 6:02 PM 6:36 EDT PM EDT Resulting Agency Comment Spec In Lab Morgan BROWN HEMATOLOGY ORDERABLES Performing Organization Address City/State/[place] [address] (ABNORMAL) Troponin (12/08/2021 6:02 PM EDT) P athologist Signature Troponin-T 0.89 (H) 0.00 - [facility] 0.00 ng/mL [facility] Comment: The 99th percentile for Troponin T is le ss than 0.01 ng/mL, any detectable cTnT concentration using this assay should be considered elevated. According to the third universal definit ion of myocardial infarction the following criteria with a clinical prese ntation consistent with acute myocardial ischemia meets the diagnosis for a myocardial infarction (IA). Detection of a rise and/or fall of [...] additional sample may be indicated. Reference: Third [place] Definition of Myocardial Infarction. Journal of the [place] [employer] 2012;60:1581-98 Specimen Anatomical Collection Method Collection Time Receive d Time (Source) Location / / Volume Laterality Blood 12/08/2021 6:02 PM 2 6:36 EDT PM EDT Resulting Agency Comment Spec In Lab Iker Cuevas MD CHEMISTRY ORDERABLES Performing Organization Address City/State/ZIP Code Phon e Number [place] [phone]OSPITAL LAB[address]ORY Drive COVID-19 PCR (12/08/2021 5:00 PM EDT) [facility] Method Time Signature SARS-CoV-2 Not Detected Not Detected [facility] RNA PCR [facility] LABOR[facility]ORY Comment: This result should [...] using the Simplexa COVID-19 Direct Assay by [employer] as authorized by the FDA issued Emergency [...] Department of Pathology and Laboratory Medicine at [facility], certified under the [...] fact sheets at the following FDA website: https://www.fda.gov/medical-devices/eyrwjcowxez-fjfiblz-8923-abbgl-16-afalmnfvl- nsm-sdhiwhcejnpidh-cbdoycj-devices/qaqmn-trtrvncmaws-byyp SARS-CoV-2 Source [employer] Swab [facility] Specimen (Source) Anatomical Collection Method Collection Time Re ceived Time Location / / Volume Laterality Nasopharyngeal Swab 12/08/2021 5:00 12/08 PM EDT 6:03 PM EDT Comment: Symptoms->Surveillance Resulting Agency Comment Spec In Lab Iker Cuevas MD MICROBIOLOGY - GENERAL ORDER [place] Performing Organization Address City/State/[place] [address] EKG 12 Lead (12/08/2021 4:40 PM EDT) Component Value Ref Range Test Analysis Performed Pathologis t Method Time At Signature Ventricular rate 78 BPM MUSE SYSTEM Atrial Rate 78 BPM MUSE SYSTEM P-R Interval 152 ms MUSE SYSTEM QRS Duration 96 ms MUSE SYSTEM Q-T Interval 396 ms MUSE SYSTEM QTC Calculated 451 ms MUSE SYSTEM (Bezet) Calculated P [place] 44 degrees MUSE SYSTEM Calculated R [place] -31 degrees MUSE SYSTEM Calculated T [place] 124 degrees MUSE SYSTEM INTERPRETATION Normal sinus rhythm MUSE SYSTEM Left axis deviation ST elevation ??in V1, minimal eleavtion V2 ST & T wave abnormality, consider lateral ischemia Abnormal ECG When compared with ECG of 12-FEB-2020 14:15, Questionable change in initial forces of [...] 400 (H) 65 - 199 [facility] mg/dL [facility] Comment: Supplemental ranges: <140 mg/dL before meals <180 mg/dL all other times of the day Specimen Anatomical Collection Method Collection Time Receive d Time (Source) Location / / Volume Laterality Blood 12/08/2021 4:34 PM 2 4:34 EDT PM EDT Iker Cuevas MD POINT OF CARE TEST ORDERABLE S Performing Organization Address City/State/ZIP Code Phon e Number [place] [phone]OS[address]ORY [address] documented in this encounter [...] Given 11/23 10:30 AM EDT 300 mcg (DEWATERER OPERATOR) ONCE PRN, Starting on Wed12/10/21 at 1030, [...] Emma Garcia RN)1609 (Given - Provider: Emma Garcia, VAMSI)1847 (Given - Provider: Emma Garcia RN)2042 (Given [...] Barbara Boogie RN)1217 (Given - Provider: Emma Garcia, VAMSI)1717 (Given - Provider: Emma Garcia, VAMSI) 0001 (Given - Provider: Derrick Galeas, VAMSI)0631 (Given - Provider: Derrick Galeas, VAMSI) 12.5 mg, Oral, EVERY 6 HOURS SCHEDULED, First dose on Wed12/08/21 at 1800, Until Discontinued, Routine 1744 (Given - Provider: Emma Garcia RN )2345 (Given - Provider: Barbara Boogie VAMSI) pantoprazole EC (Protonix) tablet 40 mg 0735 (Given - Provider: Emma Garcia, VAMSI)0805 ([facility] Hold - Provider: Admin Adt - Reason: Transfer to a Procedural area)0900 (Not Given - Provider: Emma Garcia RN - Reason: See comment - Comment: given before cath) 0835 (Given - Provider: Emma Garcia, VAMSI) 0829 (Given - Provider: Lilliana Esteban, VAMSI) 40 mg, Oral, DAILY, First dose on Wed at 1830, Until Discontinued, DO NOT CRUSH OR OPEN, Routine 1230 ([facility] Unhold - Provider: Admin Adt) polyethylene glycoL (Miralax) packet 17 g 08 ([facility] Ho ld - Provider: Admin Adt - Reason: Transfer to a Procedural area)0900 (Not Given - Provider: Emma Garcia RN - Reason: Transfer to a Procedural area)1230 ([facility] Unhold - Provider: Admin Adt) 0844 (Given [...] Sean ine 0.9) flush 5 mL 0805 ([facility] Hold - Provider: Admin Adt - Reason: Transfer to a Procedural area)0900 (Not Given - Provider: Emma Garcia RN - Reason: Transfer to a Procedural area)1230 ([facility] Unhold - Provider: Admin Adt)1746 (Given - Provider: Emma Garcia RN) 0900 (Given - Provider: Emma Garcia, VAMSI )2041 (Given - Provider: Derrick Galeas RN) 0900 [...] 0828 (Given - Provider: Lilliana Esteban, VAMSI) 40 mg, Oral, DAILY, First dose on Ivis at 0930, Until Discontinued, Routine PRN Medication Order 12/10/2021 12/11/2021 12/12/2021 acetaminophen (Tylenol) tablet 650 mg 0805 ([facility] Hold - Provider: Admin Adt - Reason: Transfer to a Procedural area)1230 ([facility] Unhold - Provider: Admin Adt) 650 mg, Oral, EVERY 4 HOURS PRN, Startin g on Wed12/08/21 at 1639, Until Wed12/12/21 at 1312, Pain, Headaches, Maximum dose of acetaminophen is 4000 mg from all sources in 24 hours. When ordered for pain , acetaminophen should be given even whe n other ordered pain medications are indicated. , Routine bisacodyL (Dulcolax) suppository 10 mg 0805 ([facility] Hold - Provider: Admin Adt - Reason: Transfer to a Procedural area)1230 ([facility] Unhold - Provider: Admin Adt) 10 mg, Rectal, DAILY PRN, Starting on 12/09/21 at 1629, Until Wed12/12/21 at 1312, Constipation, Routine dextrose 10% infusion(Linked Group 2) 0805 ([facility] Hold - Provider: Admin Adt - Reason: Transfer to a Procedural area)1230 ([facility] Unhold - Provider: Admin Adt) 250 mL, [...] (Intra-Procedure), Routine niCARdipine (Cardene) (100 mcg/mL) dilution (DEWATERER OPERATOR) (CANCELED) 1030 (Given - Provider: Vitaliy Nobles MD) ONCE PRN, Starting on Wed12/10/21 at 103 0, Until Wed12/10/21 at 1230, Intra- Operative (Intra-Procedure), Routine nitroGLYcerin (Nitrostat) disintegrating tablet 0.4 mg 08 ([facility] Hold - Provider: Admin Adt - Reason: Transfer to a Procedural area)123 ([facility] Unhold - Provider: Admin Adt) 0.4 [...] episode. & nbsp; For persistent hypoglycemia, con mine captain longer-acting treatment for the duration of the [...]
Routine documented in this encounter Care Teams Sales Support Engineer Relationship Specialty Start Date End Date Lovely Vicente MD PCP - General 04/16/[address] [place] [address] documented as of this encounter
--- OUTSIDE RECORDS SUMMARY | 2022-02-25 08:11 | XMS_ITS | Encounter Summary ---
:1945 Author Organization [facility] [place] [address] Care Team Providers Name Role Phone Lovely Vicente MD Primary Care Provider Encounter Details Date Type Department Care Team Description 02/19/2020 Telephone Dermatology at [facility] Ariana Wilder LPN [address] [place] [address] Social History Tobacco Use Types Packs/Day [...] Nobles MD [facility] CARDIOLOGY [place], [place] [address] (Wo rk) 06/10/2022 Office Visit Dermatology Laura Scherer MD [facility] [address] [facility] [place], [place] [address] (Wo rk) documented as of this encounter Visit Diagnoses Not on filedocumented in this encounter Care Teams Data Reporting Analyst Relationship Specialty Start Date End Date Lovely Vicente MD PCP - General 04/16/[address] [place] [address] documented as of this encounter
--- OUTSIDE RECORDS SUMMARY | 2022-02-25 08:11 | XMS_ITS | Encounter Summary ---
:1945 Author Organization [facility] [address] Care Team Providers Name Role Phone Lovely Vicente MD Primary Care Provider Encounter Details Date Type Department Care Team Description 10/07/2017 Laboratory Appointment Lab 3L [facility] systolic [facility] [place] [address] Social History Tobacco Use Types Packs/Day Years [...] Cardiology Vitaliy Nobles MD [facility] [address] [place], [place] [address] (Wo rk) 06/10/2022 Office Visit Dermatology Laura Scherer MD [facility] DR [address] [place], [place] [address] (Wo rk) documented as of [...] Signature Glucose Lvl 99 65 - 199 [facility] mg/dL [facility] Comment: Diabetes: >=200 mg/dL plus symp toms BUN 27 (H) 10 - 20 mg/dL [facility] Creatinine 1.07 0.80 - 1.50 [...] - 15 mmol/L [facility] Calcium 8.4 (L) 8.5 - 10.5 mg/dL [facility] Estimated GFR >60 >=60 [facility] Comment: The reported eGFR should be multiplied b y 1.2 for patients. The MDRD is not an appropriate measure o f renal function for patients with body mass extremes or in patients with acute kidney failure. http://[employer]DHnkdep [email or web address]DHMCnkf Specimen Anatomical Collection Method Collection Time Receive d Time (Source) Location / / Volume Laterality Blood specimen 10/07/2017 8:48 AM 018 8:50 (specimen) EDT AM EDT Resulting Agency Comment Spec In Lab Danette Maxwell APRN CHEMISTRY ORDERABLES Performing Organization Address City/State/ZIP Code Phon e Number [place] [phone]OS[address] LAB[address]ORY Drive (ABNORMAL) pro-Brain Natriuretic Peptide (10/07/2017 8:48 AM EDT) P athologist Signature ProBNP 1,170 (H) <=125 [facility] pg[facility]mL [facility] Specimen Anatomical Collection Method Collection Time Receive d Time (Source) Location / / Volume Laterality Blood specimen 10/07/2017 8:48 AM 018 8:50 (specimen) EDT AM EDT Resulting Agency Comment Spec In Lab Danette Eliseo Maxwell APRN CHEMISTRY ORDERABLES Performing Organization Address City/State/ZIP [place] [address] documented in this encounter Visit Diagnoses Diagnosis Chronic systolic heart failure documented in this encounter Care Teams Industrial Health Engineer Relationship Specialty Start Date End Date Lovely Vicente MD PCP - General 04/16/[address] [place] [address] documented as of this encounter
--- OUTSIDE RECORDS SUMMARY | 2022-02-25 08:11 | XMS_ITS | Encounter Summary ---
:1945 Author Organization [place] [address] Care Team Providers Name Role Phone Lovely Vicente MD Primary Care Provider Encounter Details Date Type Department Care Team Description 03/20/2021 Ancillary Procedure Radiology Library at [place] [address] [place] [address] [phone] Social History Tobacco Use Types Packs/Day Years [...] Cardiology Vitaliy Nobles MD [facility] [address] [place], [place] [address] (Wo rk) 06/10/2022 Office Visit Dermatology Laura Scherer MD [facility] DR [address], [place] [address] (Wo rk) documented as of [...] Laterality Volume Narrative RONNIE MAN - 03/20/2021 5:22 PM EDT This exam is auto-finalizing. It's purpo se is for storage only. Hugo Gaston MD IMG FILM LIBRARY ORDERABLES Performing Organization Address City/State/ZIP Code Phon e Number [place], [place] documented in this encounter Visit Diagnoses Not on filedocumented in this encounter Care Teams Director Of Digital Platforms Relationship Specialty Start Date End Date Lovely Vicente MD PCP - General 04/16/[address] [place] [address] documented as of this encounter
--- OUTSIDE RECORDS SUMMARY | 2022-02-25 08:11 | XMS_ITS | Encounter Summary ---
:1945 Author Organization [facility] [place] [address] Care Team Providers Name Role Phone Lovely Vicente MD Primary Care Provider Reason for Visit Reason Comments Follow-up Skin Check Encounter Details Date Type Department Care Team Description 01/06/2018 Office Visit Dermatology at [facility]; Abdelrahman HOOPER MD History of melanoma; [address] [facility] [place] [address] [facility] [place], [place] [address] Social History Tobacco Use [...] encounter. Rigoberto Garcia MD Section of Dermatology [facility] documented in this encounter Plan of Treatment Upcoming Encounters Date Type Specialty Care Team Description 03/26/2022 Office Visit Cardiology Vitaliy Nobles MD [facility] [address] [place], [place] [address] (Wo rk) 06/10/2022 Office Visit Dermatology Laura Scherer MD [facility] DR [address] [facility] [place], [place] [address] (Wo rk) documented as of this encounter Visit Diagnoses Diagnosis Multiple nevi Benign neoplasm of skin, site unspecifie d History of melanoma Personal history of malignant melanoma o f skin Seborrheic keratosis Other seborrheic keratosis documented in this encounter Care Teams Bookmobile Librarian Relationship Specialty Start Date End Date Lovely Vicente MD PCP - General 04/16/[address] [place] [address] documented as of this encounter
--- OUTSIDE RECORDS SUMMARY | 2022-02-25 08:11 | XMS_ITS | Encounter Summary ---
:1945 Author Organization [facility] [place] [address] Care Team Providers Name Role Phone Lovely Vicente MD Primary Care Provider Reason for Referral Diagnostic Test (Routine) - Closed Specialty Diagnoses / Procedures Referred By Contact Refer red To Contact Cardiology Diagnoses Chronic systolic heart failure Danette Maxwell APRN [facility] Non-Inv Card Lab Procedures Echocardiogram Transthoracic(Leb) [facility] [place] [address] [place] [address] Referral ID Status Reason Start Date Expiration Date Visits V isits Requested Authorized [id number] Closed Specialty 07/17/2019 09/14/2019 1 1 Service Requested Reason for Visit Diagnostic Test (Routine) - Closed Specialty Diagnoses / Procedures Referred By Contact Refer red To Contact Cardiology Diagnoses Chronic systolic heart failure Danette Maxwell APRN [facility] Non-Inv Card Lab Procedures Echocardiogram Transthoracic(Leb) [facility] [place] [address] [place] [address] Referral ID Status Reason Start Date Expiration Date Visits V isits Requested Authorized [id number] Closed Specialty 07/17/2019 09/14/2019 1 1 Service Requested Encounter Details Date Type Department Care Team Description 07/28/2019 Hospital Encounter Non-Invasive Chronic s ystolic heart [place] [address] Social History Tobacco Use Types Packs/Day [...] Cardiology Vitaliy Nobles MD [facility] [address] [place], [place] [address] (Wo rk) 06/10/2022 Office Visit Dermatology Laura Scherer MD [facility] [address] [place] [place], [place] [address] (Wo rk) documented as of this encounter Procedures Procedure Name Priority Date/Time Associated Comments Diagnosis ECHOCARDIOGRAM COMPLETE Routine 07/28/2019 8:19 AM Chronic sys tolic Results for this W CONTRAST EST heart failure procedure are in the results section. documented in this encounter Results ECHOCARDIOGRAM COMPLETE W CONTRAST (07/28/2019 8:19 AM EST) athologist Signature EF 40 [facility] Specimen (Source) Anatomical Location Collection Method / Collectio n Time Received Time / Laterality Volume 07/28/2019 Narrative [facility] - 07/28/2019 8:38 AM EST Procedure: ?Transthoracic Echocardiogram Patient: ?NATALYA Mccollum ? (Age): 1945(74y) Med Rec#: ? [id number] ?Sex: ?M ? Site Loc: ? [facility] ?Ht / Wt: ??172(cm)/81(kg) Pt. Loc: ?Echo Lab ?BSA: ?1.94 Study Date: ?? 07/28/2019 ?Pt. Type: Outpatient Tape: ? Referring: MARY ELLEN Reading: Ifeanyi Truong ([id number]) Parts Coordinator: Fadumo Flanagan RDCS, FASE Diagnosis: *Chronic systolic [...] E-wave Vmax ?1 ?m/sec ? MV deceleration [id number] ? msec ? MV A-wave Vmax ?1 [...] ? Pulmonic Valve/Qp:Qs ?Value ?Units (Range) ? VT end-diastolic Vma1.1 ?m/sec ? Wall Motion: Segment Name ?Rest ? Base-Anteroseptal ?? Normal ? Base-Anterior ? Normal ? Base-Anterolateral ??Normal ? Base-Posterolateral Normal ? Base-Inferior ? Akinetic ? Base-Inferoseptal ?? Normal ? Mid-Anteroseptal ?Normal ? Mid-Anterior ?Hypokinetic ? Mid-Anterolateral ?? Normal ? Mid-Posterolateral ??Normal ? Mid-Inferior ?Hypokinetic ? Mid-Inferoseptal ?Normal ? [employer]-Septal ? Normal ? [employer]-Anterior ? Hypokinetic ? [employer]-Lateral ?Normal ? [employer]-Inferior ? Akinetic ? [employer]-Tip ?Hypokinetic ? This report has been electronically sign ed by: _ Ifeanyi Truong M.D. ? 07/28/2019 0 8:38:01 Images reviewed and interpretation elvie hwang [facility] Cardiac Ultrasound Laboratory Procedure Note Ifeanyi Truong MD - 07/28/2019Formatt ing of this note might be different from the original. Procedure: Transthoracic Echocardiogram Patient: NATALYA MCBRIDE(Age): [birth year]74y) Med Rec#: [id number] Sex: M [place] Loc[place] [facility] Ht / Wt: 172(cm)/81(kg) Pt. Loc: Echo Lab BSA: 1.94 Study Date: 07/28/2019 Pt. Type: Outpati ent Tape: Referring: MARY ELLEN Reading: Ifeanyi Truong ([id number]) Parts Coordinator: Fadumo Flanagan RDCS, REGINA Diagnosis: *Chronic systolic [...] MV E-wave Vmax 1 m/sec MV deceleration [id number] msec MV A-wave Vmax 1 m/sec MV [...] 0.7 ratio Pulmonic Valve/Qp:Qs Value Units (Range) VT end-diastolic Vma1.1 m/sec Wall Motion: Segment Name Rest Base-Anteroseptal Normal Base-Anterior Normal Base-Anterolateral Normal Base-Posterolateral Normal Base-Inferior Akinetic Base-Inferoseptal Normal Mid-Anteroseptal Normal Mid-Anterior Hypokinetic Mid-Anterolateral Normal Mid-Posterolateral Normal Mid-Inferior Hypokinetic Mid-Inferoseptal Normal [employer]-Septal Normal [employer]-Anterior Hypokinetic [employer]-Lateral Normal [employer]-Inferior Akinetic [employer]-Tip Hypokinetic This report has been electronically sign ed by: _ Ifeanyi Truong M.D. 07/28/2019 08:38:0 1 Images reviewed and interpretation verif ied [facility] Cardiac Ultrasound Laboratory Danette Maxwell APRN [...] Routine documented in this encounter Care Teams Milk Delivery Driver Relationship Specialty Start Date End Date Lovely Vicente MD PCP - General 04/16/[address] [place] [address] documented as of this encounter
--- OUTSIDE RECORDS SUMMARY | 2022-02-25 08:11 | XMS_ITS | Encounter Summary ---
:1945 Author Organization [place] [address] Care Team Providers Name Role Phone Lovely Vicente MD Primary Care Provider Encounter Details Date Type Department Care Team Description 12/07/2021 External [place] [address] Social History Tobacco Use Types Packs/Day [...] Nobles MD [facility] [address] [place], [place] [address] (Wo rk) 06/10/2022 Office Visit Dermatology Laura Scherer MD [facility] [address] [place], [place] [address] (Wo rk) documented as of this encounter Procedures Procedure Name Priority Date/Time Associated Diagnosis Comme nts ECG SCAN Routine 12/07/2021 Results for thi s procedure are in the resu lts section. documented in this encounter Results Scan Doc: ECG (12/07/2021) Narrative This result has an attachment that is no t available. Historical Provider MD MEDIA MGR SCAN EXT ORDR/RSLT documented in this encounter Visit Diagnoses Not on filedocumented in this encounter Care Teams Fisher Diver Net Relationship Specialty Start Date End Date Lovely Vicente MD PCP - General 04/16/[address] [place] [address] documented as of this encounter
--- OUTSIDE RECORDS SUMMARY | 2022-02-25 08:11 | XMS_ITS | Encounter Summary ---
:1945 Author Organization [facility] [place] [address] Care Team Providers Name Role Phone Lovely Vicente MD Primary Care Provider Encounter Details Date Type Department Care Team Description 04/16/2021 Laboratory Appointment Lab 3L [facility] systolic [facility] [place] [id number] Social History Tobacco Use Types Packs/Day Years [...] MD [facility] [address] TADEO [place], [place] [address] (Wo rk) 06/10/2022 Office Visit Dermatology Laura Scherer MD [facility] DR TEJA GR-DERMAT OLOGY [place], [place] [address] (Wo rk) documented as of [...] athologist Signature ProBNP 523 (H) <=124 pg/mL [facility] Specimen Anatomical Collection Method Collection Time Receive d Time (Source) Location / / Volume Laterality Blood 04/16/2021 9:58 AM EDT 10:02 AM EDT Resulting Agency Comment Spec In Lab Zulma Plunkett MD CHEMISTRY ORDERABLES Performing Organization Address City/State/[place] [address] (ABNORMAL) Basic Metabolic Panel (non-fasting) (04/16/2021 9:58 AM EDT) athologist Signature Glucose Lvl 77 65 - 199 [facility] mg/dL [facility] Comment: Diabetes: >=200 mg/dL plus symp toms BUN 23 (H) 10 - 20 mg/dL [facility] Creatinine 1.26 0.80 - 1.50 mg/dL [facility] Sodium 140 135 - 145 mmol/L [facility] Potassium 5.2 (H) 3.5 - 5.0 mmol/L [facility] Comment: Please note: ??Patients with WBC >100,00 0 may have falsely elevated Potassium levels. ??For accurate Potassium quantif ication in these patients send serum separator tube (gold top) for subsequent determinations. ??Contact the Clinical Chemistry Laboratory if there are any qu estions. Chloride 103 98 - 107 mmol/L [facility] CO2 28 22 - 31 mmol/L [facility] Anion Gap 9 5 - 15 mmol/L [facility] Calcium 9.3 8.5 - 10.5 mg/dL [facility] Estimated GFR 55 (L) >=60 mL/min/1.73 m?? [facility] [...] City/State/[place] [address] documented in this encounter Visit Diagnoses Diagnosis Chronic systolic heart failure documented in this encounter Care Teams Chha Relationship Specialty Start Date End Date Lovely Vicente MD PCP - General 04/16/[address] [place] [address] documented as of this encounter
--- OUTSIDE RECORDS SUMMARY | 2022-02-25 08:11 | XMS_ITS | Encounter Summary ---
:1945 Author Organization [facility] Address [facility] [place] [address] Care Team Providers Name Role Phone Lovely Vicente MD Primary Care Provider Encounter Details Date Type Department Care Team Description 01/02/2020 Office Visit Dermatology at Rigoberto Forman ctinic keratoses; Abdelrahman HOOPER MD History of melanoma; [address] [facility] History of dysplastic nevus; [place] [address] Multiple benign nevi; [phone] [facility] Seborrheic yossi [place]; RD-DERMATOLGY Skin exam for malignant neoplasm [place], [place] [address] Social History Tobacco Use [...] encounter. Rigoberto Garcia MD Section of Dermatology [facility] documented in this encounter Plan of Treatment Upcoming Encounters Date Type Specialty Care Team Description 03/26/2022 Office Visit Cardiology Vitaliy Nobles MD [facility] [address] TADE[address] [place], [place] [address] (Wo rk) 06/10/2022 Office Visit Dermatology Laura Scherer MD [facility] [address] TEJA GR[address]DERMAT OLOGY [place], [place] [address] (Wo rk) documented as [...] skin documented in this encounter Care Teams Electrical Mechanic Relationship Specialty Start Date End Date Lovely Vicente MD PCP - General 04/16/[address] [place] [address] documented as of this encounter
--- OUTSIDE RECORDS SUMMARY | 2022-02-25 08:11 | XMS_ITS | Encounter Summary ---
:1945 Author Organization [facility] [place] [address] Care Team Providers Name Role Phone Lovely Vicente MD Primary Care Provider Encounter Details Date Type Department Care Team Description 08/15/2018 Office Visit Cardiology at [facility] Danette Maxwell Chronic systolic heart failu re; [facility] A, [employer] Cardiomyopathy, ischemic; [facility] ASCVD (arteriosclerotic card iovascular disease); [place], [place] Essential hypertension; [phone] CARDIOLOGY MARIA VICTORIA on CPAP [phone] [place], [place] [address] Social History Tobacco Use Types [...] in this encounter Progress Notes Danette Maxwell, [employer] - 08/15/2018 9:00 AM EST Images from [...] is always better at therapy Call to [facility] PT Denies lightheadedness or dizziness Denies [...] K+ 4.6 today 6. Post-op atrial fibrillation [id number] 7 (CHF, HTN, DM, vascular disease, thromboembolism) Amiodarone discontinued Continue coumadin INR managed by PCP. 2.1 today 7. PAD 08/06/2017: Right 1st, 2nd, 3rd toe amputation 08/11/2017: Left??femoral arterial access, RLE??angiogram, Balloon angioplasty of R PT with Eleazar 2.5 x 80 10/25/2017: right popliteal-pedal bypass at [facility] 8. Hypothyrodism S/p thyroidectomy for goiter [...] Cardiology Vitaliy Nobles MD [facility] DR TADE[address] [place], [place] [address] (Wo rk) 06/10/2022 Office Visit Dermatology Laura Scherer MD [facility] DR TEJA GR-DERMAT OLOGY [place], [place] [address] (Wo rk) documented as of this encounter Results Lipid Panel (08/15/2018 8:04 AM EST) athologist Signature Chol, Total 75 mg/dL [facility] Comment: Lower Risk: <200 mg/dL Average Risk: 200-239 mg/dL Higher Risk: >wy=451 mg/dL Triglycerides 185 mg/dL [facility] Comment: Average Risk/Lower Risk: <150 mg/dL Borderline High Risk: 150-199 mg/dL High Risk: 200-499 mg/dL Very High Risk: >rf=931 mg/dL HDL 32 mg/dL [facility] Comment: Males: ?? Higher Risk: <40 mg/dL Females: ?? HIgher Risk: <50 mg/dL LDL Cholesterol 6 mg/dL [facility] Comment: Lowest Risk: <100 mg/dL Lower Risk: 100-129 mg/dL Borderline High Risk: 130-159 mg/dL High Risk: 160-189 mg/dL Very High Risk: >wf=924 mg/dL Chol/HDL Ratio 2.3 ratio [facility] Lipid Interpretation See Note [facility] Comment: Lipid management should be guided by a p atient? s ASCVD risk, goals and preferences. ACC/AHA Guidelines recommend high intens ity statin if clinical ASCVD or LDL greater than or equal to 190 mg/dL. http://Picfairurl.com/XBC-RQP-Frwgabjyg Adults aged 40-75 with LDL 70-189 mg/dL should have their 10 year ASCVD risk estimated with the ACC/AHA ASCVD risk es timator http://tools.acc.org/BQDXG-Dzws-Ttlcnzpz r/ Statin should be discussed if risk [...] Organization Address City/State/[place] [address] (ABNORMAL) Basic Metabolic Panel (non-fasting) (08/15/2018 8:04 AM EST) P athologist Signature Glucose Lvl 116 65 - 199 [facility] mg/dL [facility] Comment: Diabetes: >=200 mg/dL plus symp toms BUN 21 (H) 10 - 20 mg/dL [facility] Creatinine 1.08 0.80 - 1.50 mg/dL [facility] Sodium 144 135 - [...] mmol/L [facility] Calcium 9.0 8.5 - 10.5 mg/dL [facility] Estimated GFR 68 >=60 mL/min/1.73 m?? [facility] Comment: The eGFR was calculated using the CKD-EP I equation. As with all creatinine based estimates of kidney function, eGFR values calculated with the CKD-EPI equation are not accurate in patients wi th acute kidney failure, extremes of body mass or the acutely ill. http://[employer]/[facility]Dnkf eGFR 79 >=60 mL/min/1.73 m?? [facility] Comment: The eGFR was calculated using the CKD-EP I equation. As with all creatinine based estimates of kidney function, eGFR values calculated with the CKD-EPI equation are not accurate in patients wi th acute kidney failure, extremes of body mass or the acutely ill. http://[employer]/DHMCnkf Specimen Anatomical Collection Method Collection Time Receive d Time (Source) Location / / Volume Laterality Blood specimen 08/15/2018 8:04 AM 019 8:20 (specimen) EST AM EST Resulting Agency Comment Spec In Lab Danette Eliseo Hans QUINONES CHEMISTRY ORDERABLES Performing Organization Address City/State/ZIP Code Phon e Number [address] (ABNORMAL) pro-Brain Natriuretic Peptide (08/15/2018 8:04 AM EST) P athologist Signature ProBNP 1,797 (H) <=125 [facility] pg/mL [facility] Specimen Anatomical Collection Method Collection Time Receive d Time (Source) Location / / Volume Laterality Blood specimen 08/15/2018 8:04 AM 019 8:20 (specimen) EST AM EST Resulting Agency Comment Spec In Lab Danette Eliseo Hans QUINONES CHEMISTRY ORDERABLES Performing Organization Address City/State/[place] [address] documented in this encounter Visit Diagnoses Diagnosis Chronic systolic heart failure Cardiomyopathy, ischemic Other specified forms of chronic ischemi c heart disease ASCVD (arteriosclerotic cardiovascular d isease) Unspecified cardiovascular disease Essential hypertension Unspecified essential hypertension MARIA VICTORIA on CPAP Obstructive sleep apnea (adult) (pediatr ic) documented in this encounter Care Teams Chemical Plant Worker Relationship Specialty Start Date End Date Lovely Vicente MD PCP - General 04/16/[address] [place] [address] documented as of this encounter
--- OUTSIDE RECORDS SUMMARY | 2022-02-25 08:11 | XMS_ITS | Encounter Summary ---
:1945 Author Organization [facility] [place] [address] Care Team Providers Name Role Phone Lovely Vicente MD Primary Care Provider Reason for Referral Diagnostic Test (Routine) - Specialty Diagnoses / Procedures Referred By Contact Refer red To Contact Cardiology Diagnoses Chronic systolic heart failure Danette Maxwell APRN [facility] Non-Inv Card Lab Procedures Echocardiogram Transthoracic(Leb) [facility] [place] [phone] [place] [address] Referral ID Status Reason Start Date Expiration Visits Visits Date Requested Authorized [id number] Specialty 08/15/2018 08/15/2018 1 1 Service Requested Reason for Visit Diagnostic Test (Routine) - Specialty Diagnoses / Procedures Referred By Contact Nawaf owen To Contact Cardiology Diagnoses Chronic systolic heart failure Danette Maxwell APRN [facility] Non-Inv Card Lab Procedures Echocardiogram Transthoracic(Leb) [facility] [place] [address] [place] [address] Referral ID Status Reason Start Date Expiration Visits Visits Date Requested Authorized [id number] Specialty 08/15/2018 08/15/2018 1 1 Service Requested Encounter Details Date Type Department Care Team Description 08/15/2018 Hospital Encounter Non-Invasive Danette Maxwell Chron ic systolic Cardiology Lab Barbara Gomes APRN heart failure [facility] [place] [address] [place] [phone] [address] (Work) [phone] Social History Tobacco Use Types Packs/Day Years [...] Nobles MD [facility] CARDIOLOGY [place], [place] 0[address] (Wo rk) 06/10/2022 Office Visit Dermatology Laura Scherer MD [facility] DR [address]-DERMAT OLOGY [place], [place] [address] (Wo rk) documented as of [...] Mccollum ? (Age): 1945(73y) Med Rec#: ? [id number] ?Sex: ?M ? Site Loc: ? [facility] ?Ht / Wt: ??172(cm)/81(kg) Pt. Loc: ?Echo Lab ?BSA: ?1.94 Study Date: ?? 08/15/2018 ?Pt. Type: Outpatient Tape: ? Referring: MARY ELLEN Reading: Scott Ortega ([id number]) Security Guards Dispatcher: Laura Sargent Diagnosis: *Chronic systolic (congestive) heart [...] E-wave Vmax ?1.2 ?m/sec ? MV deceleration vqsg860.4 ? msec ? MV A-wave Vmax ?0.7 [...] ? Mid-Inferior ?Hypokinetic ? Mid-Inferoseptal ?Hypokinetic ? [place]-Septal ? Akinetic ? [place]-Anterior ? Hypokinetic ? [place]-Lateral ?Akinetic ? [place]-Inferior ? Hypokinetic ? [place]-Tip ?Akinetic ? This report has been electronically sign ed by: _ Scott Ortega M.D. ? 08/15/2018 08:17:26 Images reviewed and interpretation elvie hwang [facility] Cardiac Ultrasound Laboratory Procedure Note Scott Ortega MD - 08/15/2018Format ting of this note might be different from the original. Procedure: Transthoracic Echocardiogram Patient: NATALYA MCBRIDE(Age): [birth year]73y) Med Rec#: [id number] Sex: M Site Loc: [facility] Ht / Wt: 172(cm)/81(kg) Pt. Loc: Echo Lab BSA: 1.94 Study Date: 08/15/2018 Pt. Type: Outpati ent Tape: Referring: MARY ELLEN Reading: Scott Ortega ([id number]) Security Guards Dispatcher: Laura Sargent Diagnosis: *Chronic systolic (congestive) heart [...] MV E-wave Vmax 1.2 m/sec MV deceleration [id number] msec MV A-wave Vmax 0.7 m/sec MV [...] Akinetic Mid-Posterolateral Akinetic Mid-Inferior Hypokinetic Mid-Inferoseptal Hypokinetic [place]-Septal Akinetic [place]-Anterior Hypokinetic [place]-Lateral Akinetic [place]-Inferior Hypokinetic [place]-Tip Akinetic This report has been electronically sign ed by: _ Scott Ortega M.D. 08/15/2018 08:17: 26 Images reviewed and interpretation verif ied [facility] Cardiac Ultrasound Laboratory Danette Maxwell [...] Routine documented in this encounter Care Teams Corporate Aircraft Mechanic Relationship Specialty Start Date End Date Lovely Vicente MD PCP - General 04/16/15 [address] [place] [address] documented as of this encounter
--- OUTSIDE RECORDS SUMMARY | 2022-02-25 08:11 | XMS_ITS | Encounter Summary ---
:1945 Author Organization [facility] [place] [address] Care Team Providers Name Role Phone Lovely Vicente MD Primary Care Provider Reason for Visit Reason Comments Skin Check Encounter Details Date Type Department Care Team Description 07/06/2018 Office Visit Dermatology at Teja Garcia, Rigoberto Yarbrough (actinic keratosis); MD SHAY Quick III (seborrheic keratosis); [address] [facility] History of melanoma; [place] [address] Skin exam for malignant neoplasm [phone] [facility] [place], [place] [address] Social History Tobacco Use Types [...] leg - he had vascular surgery in [facility] while he lost several toes, [...] Rigoberto Garcia MD Section of Dermatology [facility] documented in this encounter Plan of Treatment Upcoming Encounters Date Type Specialty Care Team Description 03/26/2022 Office Visit Cardiology Vitaliy Nobles MD [facility] ER DR TADE[address] [place], [place] [address] (Wo rk) 06/10/2022 Office Visit Dermatology Laura Scherer MD [facility] DR TEJA GR[address]DERMAT [place], [place] [address] (Wo rk) documented as of this encounter Visit Diagnoses Diagnosis AK (actinic keratosis) Actinic keratosis SK (seborrheic keratosis) Other seborrheic keratosis History of melanoma Personal history of malignant melanoma o f skin Skin exam for malignant neoplasm Screening for malignant neoplasm of the skin documented in this encounter Care Teams Accountant Systems Relationship Specialty Start Date End Date Lovely Vicente MD PCP - General 04/16/[address] [place] [address] documented as of this encounter
--- OUTSIDE RECORDS SUMMARY | 2022-02-25 08:11 | XMS_ITS | Encounter Summary ---
:1945 Author Organization [facility] [place] [address] Care Team Providers Name Role Phone Lovely Vicente MD Primary Care Provider Encounter Details Date Type Department Care Team Description 12/07/2021 Ancillary Procedure Radiology Library at Lovely Candelaria MD [facility] [address] [phone] (Wo lissa) [address] [phone] Social History Tobacco Use Types Packs/Day Years [...] MD [facility] ER [address] TADEO [place], [place] [address] (Wo rk) 06/10/2022 Office Visit Dermatology Laura Scherer MD [facility] ER DR TEJA GR-DERMAT OLOGY [place], [place] [address] (Wo rk) documented as of [...] / Laterality Volume Narrative RONNIE MAN - 12/07/2021 11:06 PM EDT This exam is auto-finalizing. It's purpo se is for storage only. Lovely Vicente MD IMG FILM LIBRARY ORDERABLES Performing Organization Address City/State/ZIP Code Phon e Number [place], [place] documented in this encounter Visit Diagnoses Not on filedocumented in this encounter Care Teams Learning Specialist Relationship Specialty Start Date End Date Lovely Vicente MD PCP - General 04/16/[address] [place] [address] documented as of this encounter
--- OUTSIDE RECORDS SUMMARY | 2022-02-25 08:11 | XMS_ITS | Encounter Summary ---
:1945 Author Organization [place] [address] Care Team Providers Name Role Phone Lovely Vicente MD Primary Care Provider Encounter Details Date Type Department Care Team Description 11/07/2019 TH Visit Cardiology at [facility] Danette Maxwell (arteriosclerotic heart disease); (TeleHealth) [facility] STACIE Gomes Cardiomyopathy, ischemic; Drive [facility] S/P CABG x 3; [place], [place] MARIA VICTORIA (obstructive sleep apnea) on CPAP [phone] CARDIOLOGY [phone] [place], [place] [address] Social History Tobacco Use Types [...] regurgitation present. 07/07/2019 - 07/21/2019 Zio Patch Site Damage Prevention Technician The patient had a minimum heart [...] at last check 6. Post-op atrial fibrillation [id number] 7 (CHF, HTN, DM, vascular disease, thromboembolism) Amiodarone discontinued Continue coumadin INR managed by PCP 7. PAD 08/06/2017: Right 1st, 2nd, 3rd toe amputation 08/11/2017: Left??femoral arterial access, RLE??angiogram, Balloon angioplasty of R PT with Eleazar 2.5 x 80 10/25/2017: right popliteal-pedal bypass at [facility] Continue Coumadin 8. Hypothyrodism S/p [...] Cardiology Vitaliy Nobles MD [facility] [address] TADE[address] [place], [place] [address] (Wo rk) 06/10/2022 Office Visit Dermatology Laura Scherer MD [facility] DR [address]-DERMAT [place], [place] [address] (Wo rk) documented as of this encounter Visit Diagnoses Diagnosis ASHD (arteriosclerotic heart disease) Coronary atherosclerosis of unspecified type of vessel, [place] or graft Cardiomyopathy, ischemic Other specified forms of chronic ischemi c heart disease S/P CABG x 3 Postsurgical aortocoronary bypass status MARIA VICTORIA (obstructive sleep apnea) on CPAP Obstructive sleep apnea (adult) (pediatr ic) documented in this encounter Care Teams Computer Systems Consultant Relationship Specialty Start Date End Date Lovely Vicente MD PCP - General 04/16/[address] [place] [address] [address] [place] [address] documented as of this encounter
--- OUTSIDE RECORDS SUMMARY | 2022-02-25 08:11 | XMS_ITS | Encounter Summary ---
:1945 Author Organization [facility] [place] [address] Care Team Providers Name Role Phone Lovely Vicente MD Primary Care Provider Encounter Details Date Type Department Care Team Description 08/26/2018 Transcribe Orders Laboratory Lovely Vicente, Deferred diagnosis [facility] on axis I [address] [address] [place], [place] [phone] [address] Social History Tobacco Use Types Packs/Day Years [...] Nobles MD [facility] ER [address] TADE[address] [place], [place] [address] (Wo rk) 06/10/2022 Office Visit Dermatology Laura Scherer MD [facility] DR TE[address] GR-DERMAT OLOGY [place], [place] [address] (Wo rk) documented as of this encounter Visit Diagnoses Diagnosis Deferred diagnosis on axis I Other unknown and unspecified cause of m orbidity or mortality documented in this encounter Care Teams City Maintenance Manager Relationship Specialty Start Date End Date Lovely Vicente MD PCP - General 04/16/[address] [place] [address] documented as of this encounter
--- OUTSIDE RECORDS SUMMARY | 2022-02-25 08:11 | XMS_ITS | Encounter Summary ---
:1945 Author Organization [facility] [place] [address] Care Team Providers Name Role Phone Lovely Vicente MD Primary Care Provider Encounter Details Date Type Department Care Team Description 08/15/2018 Laboratory Lab 3L Barbara Chronic systoli c heart failure; Appointment [facility] ASCVD (ar teriosclerotic cardiovascular disease) [place] [id number] Social History Tobacco Use Types Packs/Day Years [...] [facility] TADEO [place], [place] [address] (Wo rk) 06/10/2022 Office Visit Dermatology Laura Scherer MD [facility] ER DR TEJA GR-DERMAT [place], [place] [address] (Wo rk) documented as of [...] Lvl 116 65 - 199 [facility] mg/dL [facility] Comment: Diabetes: [...] LABORATORY Calcium 9.0 8.5 - 10.5 mg/dL [facility] Estimated GFR 68 >=60 mL/min/1.73 m?? [facility] Comment: The eGFR was calculated using the CKD-EP I equation. As with all creatinine based estimates of kidney function, eGFR values calculated with the CKD-EPI equation are not accurate in patients wi th acute kidney failure, extremes of body mass or the acutely ill. http://Syncronex/DHMCnkf eGFR 79 >=60 mL/min/1.73 m?? [facility] Comment: The eGFR was calculated using the CKD-EP I equation. As with all creatinine based estimates of kidney function, eGFR values calculated with the CKD-EPI equation are not accurate in patients wi th acute kidney failure, extremes of body mass or the acutely ill. http://Syncronex/DHMCnkf Specimen Anatomical Collection Method Collection Time Receive d Time (Source) Location / / Volume Laterality Blood specimen 08/15/2018 8:04 AM 019 8:20 (specimen) EST AM EST Resulting Agency Comment Spec In Lab Danette A Garrett STACIE CHEMISTRY ORDERABLES Performing Organization Address City/State/[place] [address] Lipid Panel (08/15/2018 8:04 AM EST) P athologist Signature Chol, Total 75 mg/dL [facility] Comment: Lower Risk: <200 mg/dL Average Risk: 200-239 mg/dL Higher Risk: >jf=875 mg/dL Triglycerides 185 mg/dL [facility] Comment: Average Risk/Lower Risk: <150 mg/dL Borderline High Risk: 150-199 mg/dL High Risk: 200-499 mg/dL Very High Risk: >pb=613 mg/dL HDL 32 mg/dL [facility] Comment: Males: ?? Higher Risk: <40 mg/dL Females: ?? HIgher Risk: <50 mg/dL LDL Cholesterol 6 mg/dL [facility] Comment: Lowest Risk: <100 mg/dL Lower Risk: 100-129 mg/dL Borderline High Risk: 130-159 mg/dL High Risk: 160-189 mg/dL Very High Risk: >ay=092 mg/dL Chol/HDL Ratio 2.3 ratio [facility] Lipid Interpretation See Note [facility] Comment: Lipid management should be guided by a p atient? s ASCVD risk, goals and preferences. ACC/AHA Guidelines recommend high intens ity statin if clinical ASCVD or LDL greater than or equal to 190 mg/dL. http://tinyurl.com/PJO-JEX-Krunoyepx Adults aged 40-75 with LDL 70-189 mg/dL should have their 10 year ASCVD risk estimated with the ACC/AHA ASCVD risk es timator http://tools.acc.org/GGCWU-Gjnx-Qmegrbvr r/ Statin should be discussed if risk [...] Agency Comment Spec In Lab Danette Maxwell FIRE PREVENTION CHIEF CHEMISTRY ORDERABLES Performing Organization Address City/State/[place] [address] (ABNORMAL) pro-Brain Natriuretic Peptide (08/15/2018 8:04 AM EST) P athologist Signature ProBNP 1,797 (H) <=125 [facility] pg/mL [facility] Specimen Anatomical Collection Method Collection Time Receive d Time (Source) Location / / Volume Laterality Blood specimen 08/15/2018 8:04 AM 019 8:20 (specimen) EST AM EST Resulting Agency Comment Spec In Lab Danette Maxwell APRN CHEMISTRY ORDERABLES Performing Organization Address City/State/[place] [address] documented in this encounter Visit Diagnoses Diagnosis Chronic systolic heart failure ASCVD (arteriosclerotic cardiovascular d isease) Unspecified cardiovascular disease documented in this encounter Care Teams Ivory Polisher Relationship Specialty Start Date End Date Lovely Vicente MD PCP - General 04/16/[address] [place] [address] (work) documented as of this encounter
--- OUTSIDE RECORDS SUMMARY | 2022-02-25 08:11 | XMS_ITS | Encounter Summary ---
:1945 Author Organization [facility] [place] [address] Care Team Providers Name Role Phone Lovely Vicente MD Primary Care Provider Encounter Details Date Type Department Care Team Description 11/29/2017 Hospital Encounter Vascular Lab at [facility] ([facility] [place] [phone] Social History Tobacco Use Types Packs/Day Years [...] [facility] ER DR TADEO [place], [place] [address] (Wo rk) 06/10/2022 Office Visit Dermatology Laura Scherer MD [facility] [address]MAT [place]LOG[address] [place], [place] [address] (Wo rk) documented as of this encounter [...] Department: Vascular Surgery Lab VASCUBASE Report Patient: [id number] (DON HOANG) CPT: 25205 ICD10: I72.4;I73.9 Referring Physician: DANETTE MAXWELL ?? [...] unspecified documented in this encounter Care Teams Market Risk Specialist Relationship Specialty Start Date End Date Lovely Vicente MD PCP - General 04/16/[address] [place] [address] documented as of this encounter
--- OUTSIDE RECORDS SUMMARY | 2022-02-25 08:11 | XMS_ITS | Encounter Summary ---
:1945 [place] [address] Care Team Providers Name Role Phone Lovely Vicente MD Primary Care Provider Encounter Details Date Type Department Care Team Description 07/12/2019 Office Visit Dermatology at [facility], Rigoberto Yarbrough (actinic keratosis); MD SHAY Quick III (seborrheic keratosis); [address] [facility] Multiple benign nevi; [place] [address] History of melanoma [phone] [facility]DER[facility] [place], [place] [address] Social History Tobacco Use Types [...] encounter. Rigoberto Garcia MD Section of Dermatology [facility] documented in this encounter Plan of Treatment Upcoming Encounters Date Type Specialty Care Team Description 03/26/2022 Office Visit Cardiology Vitaliy Nobles MD [facility] [address] [place], [place] [address] (Wo rk) 06/10/2022 Office Visit Dermatology Laura Scherer MD [facility] DR [address]DERMAT OGY [place], [place] [address] (Wo rk) documented as of this encounter Visit Diagnoses Diagnosis AK (actinic keratosis) Actinic keratosis SK (seborrheic keratosis) Other seborrheic keratosis Multiple benign nevi Benign neoplasm of skin, site unspecifie d History of melanoma Personal history of malignant melanoma o f skin documented in this encounter Care Teams Software Recruiter Relationship Specialty Start Date End Date Lovely Vicente MD PCP - General 04/16/[address] [place] [address] documented as of this encounter
--- OUTSIDE RECORDS SUMMARY | 2022-02-25 08:11 | XMS_ITS | Encounter Summary ---
:1945 Author Organization [place] [address] Care Team Providers Name Role Phone Lovely Vicente MD Primary Care Provider Reason for Visit Reason Onset Date Comments Follow-up 07/13/2018 amiodarone discontin ued Encounter Details Date Type Department Care Team Description 07/13/2018 Telephone Cardiology at [facility] Martha Comer, Follow-up (amiodarone [facility] RN discontin ued) [place] [address] Social History Tobacco Use Types Packs/Day [...] RN - 07/13/2018 8:57 AM EST Per SLEEVE BASTER Hans call placed to the home number for the pt. confirmed that the pt is still taking the amiodarone. Pt is to stop the amiodarone. Pt taking it for post op a-fib, therapy was supposed to be for 30 days. Message given to his . She will give him the message and will have him call with any questions. Call placed to the [facility] pharmacy in [place] to discontinue it there as well. Med list updated. documented in this encounter Plan of Treatment Upcoming Encounters Date Type Specialty Care Team Description 03/26/2022 Office Visit Cardiology Vitaliy Nobles MD [facility] [address] [place], [place] [address] (Wo rk) 06/10/2022 Office Visit Dermatology Laura Scherer MD [facility] [address]DER[address] [place], [place] [address] (Wo rk) documented as of this encounter Visit Diagnoses Not on filedocumented in this encounter Care Teams Vaccine Specialist Relationship Specialty Start Date End Date Lovely Vicente MD PCP - General 04/16/[address] [place] [address] documented as of this encounter
--- OUTSIDE RECORDS SUMMARY | 2022-02-25 08:11 | XMS_ITS | Encounter Summary ---
:1945 Author Organization [facility] [place] [address] Care Team Providers Name Role Phone Lovely Vicente MD Primary Care Provider Reason for Visit Reason Onset Date Comments Other 11/11/2017 Please call [facility] Encounter Details Date Type Department Care Team Description 11/11/2017 Telephone Cardiology at [facility] Danette Maxwell, Other (Please call [facility] ROOM SERVICE SERVER [facility] ) [place] [address] CARDIOLOGY [place], [place] [address] (Wo rk) Social History Tobacco [...] MD [facility] ER CARDIOLOGY [place], [place] [address] (Wo rk) 06/10/2022 Office Visit Dermatology Laura Scherer MD [facility] [address]DER[address] [place], [place] [address] (Wo rk) documented as of this encounter Visit Diagnoses Not on filedocumented in this encounter Care Teams Shoe Shanker Relationship Specialty Start Date End Date Lovely Vicente MD PCP - General 04/16/[address] [facility] [address] [place] [address] documented as of this encounter
--- OUTSIDE RECORDS SUMMARY | 2022-02-25 08:11 | XMS_ITS | Encounter Summary ---
:1945 [place] [address] Care Team Providers Name Role Phone Lovely Vicente MD Primary Care Provider Encounter Details Date Type Department Care Team Description 08/15/2018 Laboratory Appointment Lab 3L [place] [address] Social History Tobacco Use Types Packs/Day [...] Vitaliy Nobles MD [facility] [address] [place], [place] [address] (Wo rk) 06/10/2022 Office Visit Dermatology Laura Scherer MD [facility] [address] OLOGY [place], [place] [address] (Wo rk) documented as of this encounter Procedures Procedure Name Priority Date/Time Associated Diagnosis Comme nts PROTHROMBIN TIME Routine 08/15/2018 8:04 AM Resul ts for this EST procedure are i n the results section. documented in this encounter Results (ABNORMAL) Prothrombin Time (08/15/2018 8:04 AM EST) P athologist Signature PT 24.0 (H) 9.4 - 12.5 [facility] [...] Organization Address City/State/[place] [address] documented in this encounter Visit Diagnoses Not on filedocumented in this encounter Care Teams First Officer Relationship Specialty Start Date End Date Lovely Vicente MD PCP - General 04/16/[address] [place] [address] documented as of this encounter
--- OUTSIDE RECORDS SUMMARY | 2022-02-25 08:11 | XMS_ITS | Encounter Summary ---
:1945 Author Organization [facility] [place] [address] Care Team Providers Name Role Phone Lovely Vicente MD Primary Care Provider Reason for Visit Reason Comments Establish Care Atrial Fibrillation Congestive Heart Failure Cardiomyopathy Encounter Details Date Type Department Care Team Description 09/06/2019 [facility] Osvaldo STRANGE [address] [place], [place] CARDIOLOGY DEPT. [address] [place] [address] [phone] Social History Tobacco Use Types Packs/Day Years [...] today For any questions, call my office: [phone] To access your health care information, go to the web at: [email or web address] (you will need to register) For educational materials: [email or web address] Karel TRAMMELL.[facility], Clinical Cardiac Electrophysiology, [facility], [facility] A Healthy Heart: After Your Visit [...] least 2 servings of fish a week. [place], mackerel, mcfadden, sardines, and chunk light tuna [...] irregular heartbeat. After you call 911, the boiling tub operator may tell you to chew 1 [...] more? Visit our health information library at [email or web address]. You can also view health information on [employer], your personal patient account. Log in or sign up today. Enter F075 in the search box to learn more about A Healthy Heart: After Your Visit. ?? [phone] [employer] documented in this encounter Progress Notes Karel Mcelroy MD - 09/06/2019 2:20 PM EST Images from the original note were not included. Section of Cardiology/Cardiac Electrophysiology [facility] Clinical Cardiac Electrophysiology Consult Patient ID Don Fatima 1945 [id number] Don Fatima is referred to the EP clinic by Danette Maxwell APRN PhD Chief Complaint Dyspnea on exertion Ischemic cardiomyopathy History This is a 74 y.o. male following up/being seen in clinic for evaluation for ongoing anticoagulation. He has a Rbkbg1Pfys score of ~ 6-7. 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, can walk [...] on phone: None Gets together: None Attends methodist service: None Active member of club or [...] reviewed the ECG: sinus rhythm, 72 bpm, OH 140 ms, QRS 100 ms, QT 400 [...] EP clinic KAREL MCELROY MD Cardiac Electrophysiology [facility] T: [phone] F: [phone] 35 minutes of this 40 minute encounter were spent in counselling, as described above Cc: MD [place] Cr APRN PhD Janett Espino DPM documented in this encounter Plan of Treatment Upcoming Encounters Date Type Specialty Care Team Description 03/26/2022 Office Visit Cardiology Vitaliy Nobles MD [facility] ER DR T[address] [place], [place] [address] (Wo rk) 06/10/2022 Office Visit Dermatology Laura Scherer MD [facility] ER DR [address]MAT OLOGY [place], [place] [address] (Wo rk) documented as [...] 446 ms MUSE SYSTEM (Bezet) Calculated P Prue 37 degrees MUSE SYSTEM Calculated R Prue -23 degrees MUSE SYSTEM Calculated T Prue 116 degrees MUSE SYSTEM INTERPRETATION Normal sinus rhythm MUSE SYSTEM Inferior infarct (cited on or before 25-JAN-2013) ST & T wave abnormality, consider anterolateral ischemia Abnormal ECG When compared with ECG of 19-AUG-2017 10:23, No significant change was found Confirmed by MD Castellon Daniel ([id number]) on 09/08/2019 10:22:4 7 AM Specimen Anatomical [...] disease documented in this encounter Care Teams Home Delivery Driver Relationship Specialty Start Date End Date Lovely Vicente MD PCP - General 04/16/[address] [place] [address] documented as of this encounter
--- OUTSIDE RECORDS SUMMARY | 2022-02-25 08:11 | XMS_ITS | Encounter Summary ---
:1945 Author Organization [facility] [place] [address] Care Team Providers Name Role Phone Lovely Vicente MD Primary Care Provider Encounter Details Date Type Department Care Team Description 11/29/2017 Laboratory Lab 3L Barbara Wiseman systoli c congestive heart failure; Appointment [facility] ASCVD (ar teriosclerotic cardiovascular disease); Hospital Cardiomyopathy, [place] [address] Social History Tobacco Use Types [...] MD [facility] ER DR TADEO [place], [place] [address] (Wo rk) 06/10/2022 Office Visit Dermatology Laura Scherer MD [facility] ER DR [address]-DERMAT [place]LOG[address] [place], [place] [address] (Wo rk) documented as of [...] - 12.5 [facility] LABORATORY INR 2.1 [facility] Comment: [...] Organization Address City/State/[place] [address] (ABNORMAL) Basic Metabolic Panel (non-fasting) (11/29/2017 8:22 AM EDT) athologist Signature Glucose Lvl 217 (H) 65 - 199 [facility] mg/dL [facility] Comment: Diabetes: >=200 mg/dL plus symp toms BUN 26 (H) 10 - 20 mg/dL [facility] Creatinine 0.96 0.80 - 1.50 mg/dL [facility] Sodium 137 135 - 145 mmol/L [facility] Potassium 4.1 3.5 - 5.0 mmol/L [facility] [...] [facility] CO2 23 22 - 31 mmol/L [facility] Anion Gap 17 (H) 5 - 15 mmol/L [facility] Calcium 8.5 8.5 - 10.5 mg/dL [facility] Estimated GFR >60 >=60 [facility] Comment: The reported eGFR should be multiplied b y 1.2 for patients. The MDRD is not an appropriate measure o f renal function for patients with body mass extremes or in patients with acute kidney failure. http://Showpad.Queryday/DHnkdep http://[employer] Internet/DHMCnkf Specimen Anatomical Collection Method Collection Time Receive d Time (Source) Location / / Volume Laterality Blood specimen 11/29/2017 8:22 AM 018 8:29 (specimen) EDT AM EDT Resulting Agency Comment Spec In Lab Danette Maxwell APRN CHEMISTRY ORDERABLES Performing Organization Address City/State/[place] [address] (ABNORMAL) pro-Brain Natriuretic Peptide (11/29/2017 8:22 AM EDT) P athologist Signature ProBNP 1,769 (H) <=125 [facility] pg/mL [facility] Specimen Anatomical Collection Method Collection Time Receive d Time (Source) Location / / Volume Laterality Blood specimen 11/29/2017 8:22 AM 018 8:29 (specimen) EDT AM EDT Resulting Agency Comment Spec In Lab Danette Maxwell APRN CHEMISTRY ORDERABLES Performing Organization Address City/State/ZIP Code Phon e Number [address] Lavender Tube HOLD (11/29/2017 8:14 AM EDT) [facility] gist Method Time Signature Lavender Hold Sample in [facility] lab. [facility] Specimen Anatomical Collection Method Collection Time Receive d Time (Source) Location / / Volume Laterality Blood specimen No Charge / 11/29/2017 8:14 AM 018 8:29 (specimen) Unknown EDT AM EDT Lovely Vicente MD HEMATOLOGY ORDERABLES Performing Organization Address City/[facility]/ZIP [place] [address] documented in this encounter Visit Diagnoses Diagnosis Chronic systolic congestive heart failur e Chronic systolic heart failure ASCVD (arteriosclerotic cardiovascular d isease) Unspecified cardiovascular disease Cardiomyopathy, ischemic Other specified forms of chronic ischemi c heart disease documented in this encounter Care Teams Director Digital Strategy Relationship Specialty Start Date End Date Lovely Vicente MD PCP - General 04/16/[address] [place] [address] documented as of this encounter
--- OUTSIDE RECORDS SUMMARY | 2022-02-25 08:11 | XMS_ITS | Encounter Summary ---
:1945 [place] [address] Care Team Providers Name Role Phone Lovely Vicente MD Primary Care Provider Encounter Details Date Type Department Care Team Description 11/29/2017 Hospital Encounter Radiology Library at Estefany Maxwell Pain [facility] PRO[facility] MA[facility] [place] [address] CARDIOLOGY [phone] [place], [place] [address] (Wo rk) Social History Tobacco [...] Nobles MD [facility] DR TADEO [place], [place] [address] (Wo rk) 06/10/2022 Office Visit Dermatology Laura Scherer MD [facility] [address] OLOG[address] [place], [place] [address] (Wo rk) documented as of [...] Time Received Time / Laterality Volume Narrative [facility] - 12/28/2017 11:07 AM EDT This exam is for storage only and is aut o-finalizing. Danette Maxwell APRN IMMarc FILM LIBRARY ORDERABLES Performing Organization Address City/State/ZIP Code Phon e Number [place], [place] documented in this encounter Visit Diagnoses Diagnosis Pain Generalized pain documented in this encounter Care Teams Medical Claims Processor Relationship Specialty Start Date End Date Lovely Vicente MD PCP - General 04/16/[address] [facility] [place] [address] documented as of this encounter
--- OUTSIDE RECORDS SUMMARY | 2022-02-25 08:11 | XMS_ITS | Encounter Summary ---
:1945 Author Organization [facility] [place] [address] Care Team Providers Name Role Phone Lovely Vicente MD Primary Care Provider Encounter Details Date Type Department Care Team Description 01/16/2019 Laboratory Appointment Lab 3L [facility] systolic [facility] [place] [phone] Social History Tobacco Use Types Packs/Day Years [...] MD [facility] [address] TADE[address] [place], [place] [address] (Wo rk) 06/10/2022 Office Visit Dermatology Laura Scherer MD [facility] DR TEJA GR-DERMAT OLOGY [place], [place] [address] (Wo rk) documented as [...] athologist Signature ProBNP 780 (H) <=125 pg/mL [facility] Specimen Anatomical Collection Method Collection Time Receive d Time (Source) Location / / Volume Laterality Blood specimen 01/16/2019 7:49 AM 019 7:55 (specimen) EDT AM EDT Resulting Agency Comment Spec In Lab Danette Maxwell APRN CHEMISTRY ORDERABLES Performing Organization Address City/State/[place] [address] (ABNORMAL) Basic Metabolic Panel (non-fasting) (01/16/2019 7:49 AM EDT) athologist Signature Glucose Lvl 105 65 - 199 [facility] mg/dL [facility] Comment: Diabetes: >=200 mg/dL plus symp toms BUN 25 (H) 10 - 20 mg/dL [facility] Creatinine 1.08 0.80 - 1.50 mg/dL [facility] Sodium 145 135 - 145 mmol/L [facility] Potassium 4.7 3.5 - 5.0 mmol/L [facility] Comment: Please note: ??Patients with WBC >100,00 0 may have falsely elevated Potassium levels. ??For accurate Potassium quantif ication in these patients send serum separator tube (gold top) for subsequent determinations. ??Contact the Clinical Chemistry Laboratory if there are any qu estions. Chloride 106 98 - 107 mmol/L [facility] CO2 26 22 - 31 mmol/L [facility] Anion Gap 13 5 - 15 mmol/L [facility] Calcium 9.2 8.5 - 10.5 mg/dL [facility] Estimated GFR 68 >=60 mL/min/1.73 m?? [facility] Comment: The eGFR was calculated using the CKD-EP I equation. As with all creatinine based estimates of kidney function, eGFR values calculated with the CKD-EPI equation are not accurate in patients wi th acute kidney failure, extremes of body mass or the acutely ill. http://[employer]./[facility] eGFR 79 >=60 mL/min/1.73 m?? [facility] Comment: The eGFR was calculated using the CKD-EP I equation. As with all creatinine based estimates of kidney function, eGFR values calculated with the CKD-EPI equation are not accurate in patients wi th acute kidney failure, extremes of body mass or the acutely ill. http://[employer]nk[facility] Specimen Anatomical Collection Method Collection Time Receive d Time (Source) Location / / Volume Laterality Blood specimen 01/16/2019 7:49 AM 019 7:55 (specimen) EDT AM EDT Resulting Agency Comment Spec In Lab Danette Maxwell APRN CHEMISTRY ORDERABLES Performing Organization Address City/State/ZIP [place] [address] documented in this encounter Visit Diagnoses Diagnosis Chronic systolic heart failure documented in this encounter Care Teams Leaflet Distributor Relationship Specialty Start Date End Date Lovely Vicente MD PCP - General 04/16/[address] [place] [address] documented as of this encounter
--- OUTSIDE RECORDS SUMMARY | 2022-02-25 08:11 | XMS_ITS | Encounter Summary ---
:1945 [place] [address] Care Team Providers Name Role Phone Lovely Vicente MD Primary Care Provider Encounter Details Date Type Department Care Team Description 04/16/2021 Office Visit Cardiology at [facility] Liz Poole, Chronic systolic heart [facility] [place] [address] Cardiology Dept [phone] [place], [place] [address] Social History Tobacco Use Types [...] was feeling good. 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 07/07/2019 - 07/21/2019 Zio Patch Furnace Puncher The patient had a minimum heart rate [...] K+ 5.2 today 6. Post-op atrial fibrillation [id number] (CHF, HTN, DM, vascular disease, thromboembolism) On warfarin - recent labile INR Will discuss with PCP, option of Luis Daniel 7. PAD 08/06/2017: Right 1st, 2nd, 3rd toe amputation 08/11/2017: Left??femoral arterial access, RLE??angiogram, Balloon angioplasty of R PT 10/25/2017: right popliteal-pedal bypass at [facility] 8. Hypothyrodism S/p thyroidectomy for [...] CARDIOLOGY [place], [place] [address] (Wo rk) 06/10/2022 Office Visit Dermatology Laura Scherer MD [facility] DR TEJA GR-DERMAT [place], [place] [address] (Wo rk) documented as of this encounter Results (ABNORMAL) Basic Metabolic Panel (non-fasting) (04/16/2021 9:58 AM EDT) athologist Signature Glucose Lvl 77 65 - 199 [facility] mg/dL [facility] Comment: Diabetes: >=200 mg/dL plus symp toms BUN 23 (H) 10 - 20 mg/dL [facility] Creatinine 1.26 0.80 - 1.50 mg/dL [facility] Sodium 140 135 - 145 mmol/L [facility] Potassium 5.2 (H) 3.5 - 5.0 mmol/L [facility] Comment: Please note: ??Patients with WBC >100,00 0 may have falsely elevated Potassium levels. ??For accurate Potassium quantif ication in these patients send serum separator tube (gold top) for subsequent determinations. ??Contact the Clinical Chemistry Laboratory if there are any qu estions. Chloride 103 98 - 107 mmol/L [facility] CO2 28 22 - 31 mmol/L [facility] Anion Gap 9 5 - 15 mmol/L [facility] Calcium 9.3 8.5 - 10.5 mg/dL [facility] Estimated GFR 55 (L) >=60 mL/min/1.73 m?? [facility] [...] / Volume Laterality Blood 04/16/2021 9:58 AM 1 EDT 10:02 AM EDT Resulting Agency Comment Spec In Lab Zulma Plunkett MD CHEMISTRY ORDERABLES Performing Organization Address City/State/[place] [address] (ABNORMAL) pro-Brain Natriuretic Peptide (04/16/2021 9:58 AM EDT) P athologist Signature ProBNP 523 (H) <=124 pg/mL [facility] Specimen Anatomical Collection Method Collection Time Receive d Time (Source) Location / / Volume Laterality Blood 04/16/2021 9:58 AM 1 EDT 10:02 AM EDT Resulting Agency Comment Spec In Lab Zulma Plunkett MD CHEMISTRY ORDERABLES Performing Organization Address City/State/[place] [address] documented in this encounter Visit Diagnoses Diagnosis Chronic systolic heart failure documented in this encounter Care Teams Security Compliance Specialist Relationship Specialty Start Date End Date Lovely Vicente MD PCP - General 04/16/[address] [place] [address] documented as of this encounter
--- OUTSIDE RECORDS SUMMARY | 2022-02-25 08:11 | XMS_ITS | Encounter Summary ---
:1945 Author Organization [facility] [place] [address] Care Team Providers Name Role Phone Lovely Vicente MD Primary Care Provider Encounter Details Date Type Department Care Team Description 07/28/2019 Laboratory Appointment Lab 3L [facility] systolic [facility] [place] [phone] Social History Tobacco Use Types Packs/Day Years [...] Visit Cardiology Vitaliy Nobles MD [facility] DR TADEO [facility], [place] [address] (Wo rk) 06/10/2022 Office Visit Dermatology Laura Scherer MD [facility] DR TEJA GR-DERMAT OLOGY [facility], [place] [address] (Wo rk) documented as of [...] Organization Address City/State/[place] [address] (ABNORMAL) Basic Metabolic Panel (non-fasting) (07/28/2019 8:36 AM EST) athologist Signature Glucose Lvl 153 65 - 199 [facility] mg/dL [facility] Comment: Diabetes: >=200 mg/dL plus symp toms BUN 22 (H) 10 - 20 mg/dL [facility] Creatinine 1.05 0.80 - 1.50 [...] LABORATORY Calcium 9.3 8.5 - 10.5 mg/dL [facility] Estimated GFR 70 >=60 mL/min/1.73 m?? [facility] Comment: The eGFR was calculated using the CKD-EP I equation. As with all creatinine based estimates of kidney function, eGFR values calculated with the CKD-EPI equation are not accurate in patients wi th acute kidney failure, extremes of body mass or the acutely ill. http://[employer]/[facility] eGFR 81 >=60 mL/min/1.73 m?? [facility] Comment: The eGFR was calculated using the CKD-EP I equation. As with all creatinine based estimates of kidney function, eGFR values calculated with the CKD-EPI equation are not accurate in patients wi th acute kidney failure, extremes of body mass or the acutely ill. http://[employer]/[facility] Specimen Anatomical Collection Method Collection Time Receive d Time (Source) Location / / Volume Laterality Blood specimen 07/28/2019 8:36 AM 020 8:46 (specimen) EST AM EST Resulting Agency Comment Spec In Lab Danette Maxwell APRN CHEMISTRY ORDERABLES Performing Organization Address City/State/ZIP Code Phon e Number [place] [phone] [address] documented in this encounter Visit Diagnoses Diagnosis Chronic systolic heart failure documented in this encounter Care Teams Yield Analyst Relationship Specialty Start Date End Date Lovely Vicente MD PCP - General 04/16/[address] [place] [address] documented as of this encounter
--- OUTSIDE RECORDS SUMMARY | 2022-02-25 08:11 | XMS_ITS | Encounter Summary ---
:1945 Author Organization [facility] [place] [address] Care Team Providers Name Role Phone Lovely Vicente MD Primary Care Provider Encounter Details Date Type Department Care Team Description 12/07/2021 Telephone Cardiology Eddi Briceño Jr., [facility] [place] [address] [facility] [phone] CARDIOLOGY DEPT [place], [place] [address] (Wo rk) Social History [...] [facility] Referring Provider: Marisela Dean, HEEL STAINER [address] [place] [address] Don Veda Kushal 76 y.o. w / [...] bpm, LAFB, poor R wave progression, septal PA, and lateral STD, overall no significantchange from [...] Nobles MD [facility] [address] [place], [place] [address] (Mikayla alcaraz) 06/10/2022 Office Visit Dermatology Laura Scherer MD [facility] DR TEJA GR-DERMAT O[place], [place] [address] (Wo rk) documented as of this encounter Visit Diagnoses Not on filedocumented in this encounter Care Teams Optical Instrument Assembly Supervisor Relationship Specialty Start Date End Date Lovely Vicente MD PCP - General 04/16/[address] [place] [address] documented as of this encounter
--- OUTSIDE RECORDS SUMMARY | 2022-02-25 08:11 | XMS_ITS | Encounter Summary ---
:1945 Author Organization [facility] [place] [address] Care Team Providers Name Role Phone Lovely Vicente MD Primary Care Provider Encounter Details Date Type Department Care Team Description 07/28/2019 Office Visit Cardiology at [facility] Danette Maxwell Chronic systolic heart failu re; [facility] A, STACIE ASHD (arteriosclerotic heart disease); Drive [facility] S/P CABG x 3; [place], [place] MARIA VICTORIA (obstructive sleep apnea) on CPAP; [phone] CARDIOLOGY Mixed hyperlipidemia [phone] [place], [place] [address] Social History Tobacco Use Types [...] in this encounter Progress Notes Danette Maxwell, CELL TECHNICIAN - 07/28/2019 9:40 AM EST Images from [...] regurgitation present. 07/07/2019 - 07/21/2019 Zio Patch Data Entry Supervisor The patient had a minimum heart rate [...] K+ 4.5 today 6. Post-op atrial fibrillation [id number] (CHF, HTN, DM, vascular disease, thromboembolism) [...] advised: Refer to EP (Dr. Mcelroy in [place]) 5. Heart Failure Clinic follow up scheduled for: 3 months with proBNP and BMP Danette Maxwell APRN 07/28/2019 documented in this encounter Plan of Treatment Upcoming Encounters Date Type Specialty Care Team Description 03/26/2022 Office Visit Cardiology Vitaliy Nobles MD [facility] [address] [place], [place] [address] (Wo rk) 06/10/2022 Office Visit Dermatology Laura Scherer MD [facility] DR [address]DERMAT OLOGY [place], [place] [address] (Wo rk) documented as of this encounter Results (ABNORMAL) Basic Metabolic Panel (non-fasting) (07/28/2019 8:36 AM EST) athologist Signature Glucose Lvl 153 65 - 199 [facility] mg/dL [facility] Comment: Diabetes: >=200 mg/dL plus symp toms BUN 22 (H) 10 - 20 mg/dL [facility] Creatinine 1.05 0.80 - 1.50 mg/dL [facility] [...] of body mass or the acutely ill. [email or web address]/[facility] eGFR 81 >=60 mL/min/1.73 m?? [facility] Comment: The eGFR was calculated using the CKD-EP I equation. As with all creatinine based estimates of kidney function, eGFR values calculated with the CKD-EPI equation are not accurate in patients wi th acute kidney failure, extremes of body mass or the acutely ill. http://[employer]/[facility] Specimen Anatomical Collection Method Collection Time Receive d Time (Source) Location / / Volume Laterality Blood specimen 07/28/2019 8:36 AM 020 8:46 (specimen) EST AM EST Resulting Agency Comment Spec In Lab Danette Maxwell STACIE CHEMISTRY ORDERABLES Performing Organization Address City/State/[place] [address] (ABNORMAL) pro-Brain Natriuretic Peptide [...] Organization Address City/State/[place] [address] documented in this encounter Visit Diagnoses Diagnosis Chronic systolic heart failure ASHD (arteriosclerotic heart disease) Coronary atherosclerosis of unspecified type of vessel, cahto or graft S/P CABG x 3 Postsurgical aortocoronary bypass status MARIA VICTORIA (obstructive sleep apnea) on CPAP Obstructive sleep apnea (adult) (pediatr ic) Mixed hyperlipidemia documented in this encounter Care Teams Polisher And Sander Relationship Specialty Start Date End Date Lovley Vicente MD PCP - General 04/16/[address] [place] [address] documented as of this encounter
--- OUTSIDE RECORDS SUMMARY | 2022-02-25 08:11 | XMS_ITS | Encounter Summary ---
:1945 Author Organization [facility] Address [facility] [place] [address] Care Team Providers Name Role Phone Lovely Vicente MD Primary Care Provider Reason for Referral Diagnostic Test (Routine) - Closed Specialty Diagnoses / Procedures Referred By Contact Refer red To Contact Cardiology Diagnoses Chronic systolic heart failure Danette Maxwell APRN [facility] Non-Inv Card Lab Procedures Echocardiogram Transthoracic(Leb) [facility] [place] [address] [place] [address] Referral ID Status Reason Start Date Expiration Date Visits V isits Requested Authorized [id number] Closed Specialty 07/17/2019 09/14/2019 1 1 Service Requested Encounter Details Date Type Department Care Team Description 01/16/2019 Office Visit Cardiology at [facility] Danette Maxwell, Chronic systolic heart failu re; [facility] STACIE Cardiomyopathy, ischemic; Drive [facility] Hx of thyroid cancer; [place], [place] DR [place] (arteriosclerotic heart disease); [phone] CARDIOLOGY MARIA VICTORIA (obstructive sleep apnea) on CPAP [phone] [place], [place] [address] (Wo rk) Social History Tobacco Use Types [...] note were not included. ID and CC: Gregory Fatima is a 72 y.o. male presenting [...] K+ 4.6 today 6. Post-op atrial fibrillation [id number] (CHF, HTN, DM, vascular disease, thromboembolism) Amiodarone discontinued Continue coumadin INR managed by PCP. 2.1 today 7. PAD 08/06/2017: Right 1st, 2nd, 3rd toe amputation 08/11/2017: Left??femoral arterial access, RLE??angiogram, Balloon angioplasty of R PT with Eleazar 2.5 x 80 10/25/2017: right popliteal-pedal bypass at [facility] [place] 8. Hypothyrodism S/p thyroidectomy for goiter Continue [...] follow up scheduled for: 6 months Danette Maxewll APRN 01/16/2019 documented in this encounter Plan of Treatment Upcoming Encounters Date Type Specialty Care Team Description 03/26/2022 Office Visit Cardiology Vitaliy Nobles MD [facility] ER CARDIOLOGY [place], [place] [address] (Wo rk) 06/10/2022 Office Visit Dermatology Laura Scherer MD [facility] ER DR TEJA GR-DERMAT OLOGY [place], [place] [address] (Wo rk) documented as of this encounter Results ECHOCARDIOGRAM COMPLETE W CONTRAST (07/28/2019 8:19 AM EST) athologist Signature EF 40 [facility] Specimen (Source) Anatomical Location Collection Method / Collectio n Time Received Time / Laterality Volume 07/28/2019 Narrative [facility] - 07/28/2019 8:38 AM EST Procedure: ?Transthoracic Echocardiogram Patient: ?NATALYA GREGORY Mccollum ? (Age): 1945(74y) Med Rec#: ? [id number] ?Sex: ?M ? Site Loc: ? [facility] ?Ht / Wt: ??172(cm)/81(kg) Pt. Loc: ?Echo Lab ?BSA: ?1.94 Study Date: ?? 07/28/2019 ?Pt. Type: Outpatient Tape: ? Referring: MARY ELLEN Reading: Ifeanyi Truong () Health Counselor: Fadumo Flanagan RDCS, REGINA Diagnosis: *Chronic systolic [...] E-wave Vmax ?1 ?m/sec ? MV deceleration fhcm557.5 ? msec ? MV A-wave Vmax ?1 [...] Mid-Inferior ?Hypokinetic ? Mid-Inferoseptal ?Normal ? [place]-Septal ? Normal ? [place]-Anterior ? Hypokinetic ? [place]-Lateral ?Normal ? [place]-Inferior ? Akinetic ? [place]-Tip ?Hypokinetic ? This report has been electronically sign ed by: _ Ifeanyi Truong M.D. ? 07/28/2019 0 8:38:01 Images reviewed and interpretation [facility] Procedure Note Ifeanyi Truong MD - 07/28/2019Formatt ing of this note might be different from the original. Procedure: Transthoracic Echocardiogram Patient: NATALYA MCBRIDE(Age): [birth year]74y) Med Rec#: [id number] Sex: M Site Loc: [facility] Ht / Wt: 172(cm)/81(kg) Pt. Loc: Echo Lab BSA: 1.94 Study Date: 07/28/2019 Pt. Type: Outpati ent Tape: Referring: MARY ELLEN Reading: Ifeanyi Truong ([id number]) Health Counselor: Fadumo Flanagan RDCS, FASE Diagnosis: *Chronic systolic [...] MV E-wave Vmax 1 m/sec MV deceleration hbrs637.5 msec MV A-wave Vmax 1 m/sec MV [...] Mid-Posterolateral Normal Mid-Inferior Hypokinetic Mid-Inferoseptal Normal [place]-Septal Normal [place]-Anterior Hypokinetic [place]-Lateral Normal [place]-Inferior Akinetic [place]-Tip Hypokinetic This report has been electronically sign ed by: _ Ifeanyi Truong M.D. 07/28/2019 08:38:0 1 Images reviewed and interpretation verif ied [facility] Cardiac Ultrasound Laboratory Danette Maxwell APRN ECHO ORDERABLES Performing Organization Address City/State/ZIP Code Phon e Number [facility] (ABNORMAL) Basic Metabolic Panel (non-fasting) (01/16/2019 7:49 AM EDT) P athologist Signature Glucose Lvl 105 65 - 199 [facility] mg/dL [facility] Comment: Diabetes: [...] LABORATORY Estimated GFR 68 >=60 mL/min/1.73 m?? [facility] Comment: The eGFR was calculated using the CKD-EP I equation. As with all creatinine based estimates of kidney function, eGFR values calculated with the CKD-EPI equation are not accurate in patients wi th acute kidney failure, extremes of body mass or the acutely ill. http://[employer]/[facility]nk[facility] eGFR 79 >=60 mL/min/1.73 m?? [facility] Comment: The eGFR was calculated using the CKD-EP I equation. As with all creatinine based estimates of kidney function, eGFR values calculated with the CKD-EPI equation are not accurate in patients wi th acute kidney failure, extremes of body mass or the acutely ill. [email or web address] Specimen Anatomical Collection Method Collection Time Receive d Time (Source) Location / / Volume Laterality Blood specimen 01/16/2019 7:49 AM 019 7:55 (specimen) EDT AM EDT Resulting Agency Comment Spec In Lab Danette Maxwell APRN CHEMISTRY ORDERABLES Performing Organization Address City/[facility]/ZIP [place] [address] (ABNORMAL) pro-Brain Natriuretic Peptide (01/16/2019 7:49 AM EDT) P athologist Signature ProBNP 780 (H) <=125 pg/mL [facility] Specimen Anatomical Collection Method Collection Time Receive d Time (Source) Location / / Volume Laterality Blood specimen 01/16/2019 7:49 AM 019 7:55 (specimen) EDT AM EDT Resulting Agency Comment Spec In Lab Danette Maxwell APRN CHEMISTRY ORDERABLES Performing Organization Address City/[facility]/ZIP [place] [address] documented in this encounter Visit Diagnoses Diagnosis Chronic systolic heart failure Cardiomyopathy, ischemic Other specified forms of chronic ischemi c heart disease Hx of thyroid cancer Personal history of malignant neoplasm o f thyroid ASHD (arteriosclerotic heart disease) Coronary atherosclerosis of unspecified type of vessel, chitina or graft MARIA VICTORIA (obstructive sleep apnea) on CPAP Obstructive sleep apnea (adult) (pediatr ic) Chronic systolic heart failure documented in this encounter Care Teams Cottage Cheese Maker Relationship Specialty Start Date End Date Lovely Vicente MD PCP - General 04/16/[address] [place] [address] documented as of this encounter
--- OUTSIDE RECORDS SUMMARY | 2022-02-25 08:11 | XMS_ITS | Encounter Summary ---
:1945 Author Organization [facility] Address [facility] [address] [place] [address] Care Team Providers Name Role Phone Lovely Vicente MD Primary Care Provider Reason for Referral Diagnostic Test (Routine) - Specialty Diagnoses / Procedures Referred By Contact Refer red To Contact Cardiology Diagnoses Chronic systolic heart failure Danette Maxwell APRN [facility] Non-Inv Card Lab Procedures Echocardiogram Transthoracic(Leb) [facility] [place] [address] [place] [address] Referral ID Status Reason Start Date Expiration Visits Visits Date Requested Authorized [id number] Specialty 08/15/2018 08/15/2018 1 1 Service Requested Encounter Details Date Type Department Care Team Description 04/18/2018 Office Visit Cardiology at [facility] Danette Maxwell Chronic systolic heart failu re; [facility] STACIE Gomes On amiodarone therapy; [facility] Ischemic cardiomyopathy; [place], [place] DR ONOFRE (arteriosclerotic cardiovascular d isease) [id number] CARDIOLOGY [phone] [place], [place] [address] Social History Tobacco Use Types Packs/Day Years [...] this encounter Progress Notes Danette Maxwell, FERN CUTTER - 04/18/2018 10:40 AM EDT ID and [...] Nobles MD [facility] CARDIOLOGY [place], [place] [address] (Wo rk) 06/10/2022 Office Visit Dermatology Laura Scherer MD [facility] [address] TEJA [address] [place] [id number] (Wo rk) documented as of this encounter Results ECHOCARDIOGRAM COMPLETE W CONTRAST (08/15/2018 7:55 AM EST) P athologist Signature EF 35 HEARTLAB SYSTEM Specimen (Source) Anatomical Location Collection Method / Collectio n Time Received Time / Laterality Volume 08/15/2018 Narrative HEARTLAB SYSTEM - 08/15/2018 8:18 AM EST Procedure: ?Transthoracic Echocardiogram Patient: ?NATALYA Mccollum ? (Age): 1945(73y) Med Rec#: ? [id number] ?Sex: ?M ? Site Loc: ? [facility] ?Ht / Wt: ??172(cm)/81(kg) Pt. Loc: ?Echo Lab ?BSA: ?1.94 Study Date: ?? 08/15/2018 ?Pt. Type: Outpatient Tape: ? Referring: MARY ELLEN Reading: Scott Ortega ([id number]) Paving Machine Operator: Laura Sargent Diagnosis: *Chronic systolic (congestive) heart [...] E-wave Vmax ?1.2 ?m/sec ? MV deceleration gvpy023.4 ? msec ? MV A-wave Vmax ?0.7 [...] ? Mid-Inferior ?Hypokinetic ? Mid-Inferoseptal ?Hypokinetic ? [place]-Septal ? Akinetic ? [place]-Anterior ? Hypokinetic ? [place]-Lateral ?Akinetic ? [place]-Inferior ? Hypokinetic ? [place]-Tip ?Akinetic ? This report has been electronically sign ed by: _ Scott Ortega M.D. ? 08/15/2018 08:17:26 Images reviewed and interpretation elvie hwang [facility] Cardiac Ultrasound Laboratory Procedure Note Scott Ortega MD - 08/15/2018Format ting of this note might be different from the original. Procedure: Transthoracic Echocardiogram Patient: NATALYA MCBRIDE(Age): [birth year]73y) [facility] Rec#: [id number] Sex: M Site Loc: [facility] Ht / Wt: 172(cm)/81(kg) Pt. Loc: Echo Lab BSA: 1.94 Study Date: 08/15/2018 Pt. Type: Outpati ent Tape: Referring: MARY ELLEN Reading: Scott Ortega ([id number]) Paving Machine Operator: Laura Sargent Diagnosis: *Chronic systolic (congestive) heart [...] MV E-wave Vmax 1.2 m/sec MV deceleration dzhj051.4 msec MV A-wave Vmax 0.7 m/sec MV [...] Akinetic Mid-Posterolateral Akinetic Mid-Inferior Hypokinetic Mid-Inferoseptal Hypokinetic [place]-Septal Akinetic [place]-Anterior Hypokinetic [place]-Lateral Akinetic [place]-Inferior Hypokinetic [place]-Tip Akinetic This report has been electronically sign ed by: _ Scott Ortega M.D. 08/15/2018 08:17: 26 Images reviewed and interpretation elvie ludwigd [facility] Cardiac Ultrasound Laboratory Danette Maxwell APRN ECHO ORDERABLES Performing Organization Address City/State/ZIP Code Phon e Number HEARTLAB SYSTEM (ABNORMAL) Basic Metabolic Panel (non-fasting) (04/18/2018 9:19 AM EDT) P athologist Signature Glucose Lvl 167 65 - 199 [facility] mg/dL [facility] Comment: Diabetes: >=200 mg/dL plus symp toms BUN 18 10 - 20 mg/dL [facility] Creatinine 1.19 0.80 - 1.50 mg/dL [facility] Sodium 147 (H) 135 - 145 mmol/L [facility] [...] [facility] Anion Gap 23 (H) 5 - 15 mmol/L [facility] Calcium 9.3 8.5 - 10.5 mg/dL [facility] Estimated GFR 61 >=60 mL/min/1.73 m?? [facility] Comment: The eGFR was calculated using the CKD-EP I equation. As with all creatinine based estimates of kidney function, eGFR values calculated with the CKD-EPI equation are not accurate in patients wi th acute kidney failure, extremes of body mass or the acutely ill. http://[employer]/DHMCnkf eGFR 70 >=60 mL/min/1.73 m?? [facility] Comment: The eGFR was calculated using the CKD-EP I equation. As with all creatinine based estimates of kidney function, eGFR values calculated with the CKD-EPI equation are not accurate in patients wi th acute kidney failure, extremes of body mass or the acutely ill. http://[employer]/DHMCnkf Specimen Anatomical Collection Method Collection Time Receive d Time (Source) Location / / Volume Laterality Blood specimen 04/18/2018 9:19 AM 018 9:34 (specimen) EDT AM EDT Resulting Agency Comment Spec In Lab Danette Eliseo [place] STACIE CHEMISTRY ORDERABLES Performing Organization Address City/State/ZIP Code Phon e Number [address] (ABNORMAL) pro-Brain Natriuretic Peptide (04/18/2018 9:19 AM EDT) P athologist Signature ProBNP 2,199 (H) <=125 [facility] Specimen Anatomical Collection Method Collection Time Receive d Time (Source) Location / / Volume Laterality Blood specimen 04/18/2018 9:19 AM 018 9:34 (specimen) EDT AM EDT Resulting Agency Comment Spec In Lab Danette Eliseo Hans QUINONES CHEMISTRY ORDERABLES Performing Organization Address City/[facility]/[place] [address] documented in this encounter Visit Diagnoses Diagnosis Chronic systolic heart failure On amiodarone therapy Ischemic cardiomyopathy Other specified forms of chronic ischemi c heart disease ASCVD (arteriosclerotic cardiovascular d isease) Unspecified cardiovascular disease Chronic systolic heart failure documented in this encounter Care Teams Director Of Premium Seat Sales Relationship Specialty Start Date End Date Lovely Vicente MD PCP - General 04/16/[address] [place] [address] documented as of this encounter
--- OUTSIDE RECORDS SUMMARY | 2022-02-25 08:11 | XMS_ITS | Encounter Summary ---
:1945 Author Organization [facility] [place] [address] Care Team Providers Name Role Phone Lovely Vicente MD Primary Care Provider Reason for Visit Reason Onset Date Comments Other 03/24/2019 cardiac clearance ne eded Encounter Details Date Type Department Care Team Description 03/24/2019 Telephone Cardiology at [facility] Danette Maxwell, Other (cardiac [facility] HAND ROUTER OPERATOR clearance needed) [place] [address] CARDIOLOGY [place], [place] [address] (Wo rk) Social History [...] AM EDT Leonela from [facility] [place] called requesting cardiac clearance for this patient who is to have a colonoscopy on 04/04/19. He is on anticoagulation and they will need to bridge him. Their phone # [phone], fax# [phone]. Thank you. documented in this encounter Plan of Treatment Upcoming Encounters Date Type Specialty Care Team Description 03/26/2022 Office Visit Cardiology Vitaliy Nobles MD [facility] [address] [place], [place] [address] (Wo rk) 06/10/2022 Office Visit Dermatology Laura Scherer MD [facility] DR [address] [place], [place] [address] (Wo rk) documented as of this encounter Visit Diagnoses Not on filedocumented in this encounter Care Teams Ad Terminal Makeup Operator Relationship Specialty Start Date End Date Lovely Vicente MD PCP - General 04/16/[address] [place] [address] documented as of this encounter
--- OUTSIDE RECORDS SUMMARY | 2022-02-25 08:11 | XMS_ITS | Encounter Summary ---
:1945 Author Organization [place] [address] Care Team Providers Name Role Phone Lovely Vicente MD Primary Care Provider Encounter Details Date Type Department Care Team Description 03/20/2021 Ancillary Procedure Radiology Library [place] [address] [place] [address] [phone] Social History Tobacco Use Types Packs/Day Years [...] Vitaliy Nobles MD [facility] [address] [place], [place] [address] (Wo rk) 06/10/2022 Office Visit Dermatology Laura Scherer MD [facility] DR TE[address] [place], [place] [address] [...] Address City/State/ZIP Code Phon e Number [place], [place] documented in this encounter Visit Diagnoses Not on filedocumented in this encounter Care Teams Model Home Sales Greeter Relationship Specialty Start Date End Date Lovely Vicente MD PCP - General 04/16/[address] [place] [address] documented as of this encounter
--- OUTSIDE RECORDS SUMMARY | 2022-02-25 08:11 | XMS_ITS | Encounter Summary ---
:1945 [place] [address] Care Team Providers Name Role Phone Lovely Vicente MD Primary Care Provider Reason for Visit Reason Comments Skin Cancer Examination Encounter Details Date Type Department Care Team Description 03/20/2021 Office Visit Dermatology at [facility] Brennen Rene MD History of melanoma; [facility] History of dysplastic nevus; [address] Multiple benign nevi; [place] [address] [facility] [place] (seborrheic keratosis); [phone] [address]-DERMATOLOGY [place] (actinic keratosis) [place], [place] [address] Social History Tobacco Use Types [...] no SOCIAL HISTORY 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 Last visit at [facility] Derm: 01/02/2020 Medications: Reviewed in eD-H [...] FSE; history of Melanoma []Note routed to laboratory secretary [x]Recall has been placed in scheduling system []Appointment scheduled at checkout Scribe attestation: Yoana Pang LPN has performed the documentation for this encounter in the presence of and acting as a scribe for LAURA RENE MD I performed the above scribed service and agree with the accuracy of the documentation in this encounter. Reviewed and signed by: LAURA RENE MD Dermatology [facility] documented in this encounter Plan of Treatment Upcoming Encounters Date Type Specialty Care Team Description 03/26/2022 Office Visit Cardiology Vitaliy Nobles MD [facility] ER [address] T[address] [place], [place] [address] (Wo rk) 06/10/2022 Office Visit Dermatology Laura Rene MD [facility] DR [address] [facility] [place], [place] [address] (Wo rk) documented as of this encounter Visit Diagnoses Diagnosis History of melanoma Personal history of malignant melanoma o f skin History of dysplastic nevus Personal history of diseases of skin and subcutaneous tissue Multiple benign nevi Benign neoplasm of skin, site unspecifie d [place] (seborrheic keratosis) Other seborrheic keratosis [place] (actinic keratosis) Actinic keratosis documented in this encounter Care Teams Tin Roofer Relationship Specialty Start Date End Date Lovely Vicente MD PCP - General 04/16/[address] [place] [address] documented as of this encounter
--- OUTSIDE RECORDS SUMMARY | 2022-02-25 08:11 | XMS_ITS | Encounter Summary ---
:1945 Author Organization [facility] [place] [address] Care Team Providers Name Role Phone Lovely Vicente MD Primary Care Provider Encounter Details Date Type Department Care Team Description 03/20/2021 Ancillary Procedure Radiology Library [place] [address] [place] [address] [phone] Social History Tobacco Use Types Packs/Day Years [...] MD [facility] [address] TADE[address] [place], [place] [address] (Wo rk) 06/10/2022 Office Visit Dermatology Laura Scherer MD [facility] DR TE[address] [place], [place] [address] (Wo rk) documented as of [...] Organization Address City/State/ZIP Code Phon e Number [place], [place] documented in this encounter Visit Diagnoses Not on filedocumented in this encounter Care Teams Phlebotomy Services Representative Relationship Specialty Start Date End Date Lovely Vicente MD PCP - General 04/16/[address] [place] [address] documented as of this encounter
--- OUTSIDE RECORDS SUMMARY | 2022-02-25 08:11 | XMS_ITS | Encounter Summary ---
:1945 Author Organization [facility] [place] [address] Care Team Providers Name Role Phone Lovely Vicente MD Primary Care Provider Encounter Details Date Type Department Care Team Description 12/08/2021 External Results Non-Invasive Cardiology Lab Mar y None [facility] [place] [address] Social History Tobacco Use Types Packs/Day [...] MD [facility] [address] T[address] [place], [place] [address] (Wo rk) 06/10/2022 Office Visit Dermatology Laura Scherer MD [facility] DR TEJA GR[address]DERMAT [facility] [place] [place] [address] (Wo rk) documented as of [...] on filedocumented in this encounter Care Teams Outside Sales Account Manager Relationship Specialty Start Date End Date Lovely Vicente MD PCP - General 04/16/[address] [place] [address] documented as of this encounter
--- OUTSIDE RECORDS SUMMARY | 2022-02-25 08:11 | XMS_ITS | Encounter Summary ---
:1945 [place] [address] Care Team Providers Name Role Phone Lovely Vicente MD Primary Care Provider Encounter Details Date Type Department Care Team Description 03/20/2021 Telephone Neurology at [facility] Hugo Gaston MD [facility] [place] [address] [place] [address] [phone] (Wo rk) Social History Tobacco Use Types [...] - 03/20/2021 6:03 PM EDT Call from [facility]. 76 M with h/o DM. [...] Gaston MD Department of Neurology Pager # [phone] documented in this encounter Plan of Treatment Upcoming Encounters Date Type Specialty Care Team Description 03/26/2022 Office Visit Cardiology Vitaliy Nobles MD [facility] [address] T[address] [place], [place] [address] (Wo rk) 06/10/2022 Office Visit Dermatology Laura Scherer MD [facility] DR [address]-DERMAT [place], [place] [address] (Wo rk) documented as of this encounter Visit Diagnoses Not on filedocumented in this encounter Care Teams Print Color Operator Relationship Specialty Start Date End Date Lovely Vicente MD PCP - General 04/16/[address] [place] [address] documented as of this encounter
--- OUTSIDE RECORDS SUMMARY | 2022-02-25 08:11 | XMS_ITS | Encounter Summary ---
:1945 Author Organization [facility] [place] [address] Care Team Providers Name Role Phone Lovely Vicente MD Primary Care Provider Encounter Details Date Type Department Care Team Description 11/29/2017 Office Visit Cardiology at [facility] Annette Maxwell Chronic systolic congestive heart failure; [facility] A, IMPROVEMENT RN ASCVD (arteriosclerotic cardiovascular d isease); 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 [...] using left greater saphenous vein (done at [facility]), debridement of right foot with wound vac [...] 80 10/25/2017: right popliteal-pedal bypass at [facility] ? Plan: 1. A review of [...] Vitaliy Nobles MD [facility] [address] [place], [place] [address] (Wo rk) 06/10/2022 Office Visit Dermatology Laura Scherer MD [facility] DR TEJA GR[address]MAT [place], [place] [address] (Wo rk) documented as of this encounter Results Arterial Duplex Leg, Unil (11/29/2017 10:32 AM EDT) Component Value Ref Test Analysis Performed At [facility] Method Time Signature VB Text Department: Vascular Surgery Lab VASCUBASE Report Patient: [id number] (GREGORY HOANG) CPT: 69309 ICD10: I72.4;I73.9 Referring Physician: ANNETTE MAXWELL ?? [...] Glucose Lvl 217 (H) 65 - 199 [facility] mg/dL [facility] Comment: Diabetes: >=200 mg/dL plus symp toms BUN 26 (H) 10 - 20 mg/dL [facility] Creatinine 0.96 0.80 - 1.50 mg/dL [facility] Sodium 137 135 - 145 mmol/L [facility] Potassium 4.1 3.5 - 5.0 mmol/L [facility] Estimated GFR >60 >=60 [facility] Comment: The reported eGFR should be multiplied b y 1.2 for patients. The MDRD is not an appropriate measure o f renal function for patients with body mass extremes or in patients with acute kidney failure. http://[employer]/DHnkdep http://[employer]/DHMCnkf Specimen Anatomical Collection Method Collection Time Receive d Time (Source) Location / / Volume Laterality Blood specimen 11/29/2017 8:22 AM 018 8:29 (specimen) EDT AM EDT Resulting Agency Comment Spec In Lab Annette Maxwell APRN CHEMISTRY ORDERABLES Performing Organization Address City/State/[place] [address] (ABNORMAL) pro-Brain Natriuretic Peptide (11/29/2017 8:22 AM EDT) athologist Signature ProBNP 1,769 (H) <=125 [facility] pg/mL [facility] Specimen Anatomical Collection Method Collection Time Receive d Time (Source) Location / / Volume Laterality Blood specimen 11/29/2017 8:22 AM 018 8:29 (specimen) EDT AM EDT Resulting Agency Comment Spec In Lab Annette Maxwell STACIE CHEMISTRY ORDERABLES Performing Organization Address City/State/[place] [address] documented in this encounter Visit Diagnoses Diagnosis Chronic systolic congestive heart failur e Chronic systolic heart failure ASCVD (arteriosclerotic cardiovascular d isease) Unspecified cardiovascular disease Cardiomyopathy, ischemic Other specified forms of chronic ischemi c heart disease PAD (peripheral artery disease) Peripheral vascular disease, unspecified documented in this encounter Care Teams Automotive Dismantler Relationship Specialty Start Date End Date Lovely Vicente MD PCP - General 04/16/[address] [place] [address] documented as of this encounter
--- OUTSIDE RECORDS SUMMARY | 2022-02-25 08:11 | XMS_ITS | Encounter Summary ---
:1945 Author Organization [place] [address] Care Team Providers Name Role Phone Lovely Vicente MD Primary Care Provider Encounter Details Date Type Department Care Team Description 04/18/2018 Laboratory Appointment Lab 3L [facility] [place] [id number] Social History Tobacco Use Types Packs/Day Years [...] Cardiology Vitaliy Nobles MD [facility] [address] TADE[address] [place], [place] [address] (Wo rk) 06/10/2022 Office Visit Dermatology Laura Scherer MD [facility] DR TEJA GR-DERMAT [place]LOGY [place], [place] [address] (Wo rk) documented as of [...] Signature Total Protein 7.6 6.1 - 8.0 [facility] gm/dL [facility] Albumin 4.0 3.2 - 5.2 [facility]AN gm/dL [facility] AST 36 0 - 39 [facility] unit/L [facility] ALT 27 0 - 55 [facility] unit/L [facility] Alk Phos 96 40 - 120 [facility] unit/L [facility] Total 0.7 0.2 - 1.3 [place] [facility] Bilirubin mg/dL [facility] Bili, Direct 0.1 0.0 - 0.3 [facility] mg/dL [facility] Specimen Anatomical Collection Method Collection Time Receive d Time (Source) Location / / Volume Laterality Blood specimen Venous Draw / 04/18/2018 9:19 AM 2017 9:44 (specimen) Unknown EDT AM EDT Resulting Agency Comment Spec In Lab Danette Maxwell APRN CHEMISTRY ORDERABLES Performing Organization Address City/[facility] [place] [address] TSH (04/18/2018 9:19 AM EDT) athologist Signature TSH 1.77 0.27 - 4.20 [facility] mlU/ML [facility] Specimen Anatomical Collection Method Collection Time Receive d Time (Source) Location / / Volume Laterality Blood specimen Venous Draw / 04/18/2018 9:19 AM 2017 9:44 (specimen) Unknown EDT AM EDT Resulting Agency Comment Spec In Lab Danette Maxwell APRN CHEMISTRY ORDERABLES Performing Organization Address City/State/[place] [address] (ABNORMAL) Basic Metabolic Panel (non-fasting) (04/18/2018 9:19 AM EDT) P athologist Signature Glucose Lvl 167 65 - 199 [facility] mg/dL [facility] Comment: Diabetes: >=200 mg/dL plus symp toms BUN 18 10 - 20 mg/dL [facility] Creatinine 1.19 0.80 - 1.50 mg/dL [facility] Sodium 147 (H) 135 - 145 mmol/L [facility] [...] 31 mmol/L [facility] Anion Gap 23 (H) 5 - 15 mmol/L [facility] Calcium 9.3 8.5 - 10.5 mg/dL [facility] Estimated GFR 61 >=60 mL/min/1.73 m?? [facility] Comment: The eGFR was calculated using the CKD-EP I equation. As with all creatinine based estimates of kidney function, eGFR values calculated with the CKD-EPI equation are not accurate in patients wi th acute kidney failure, extremes of body mass or the acutely ill. http://Gummii/[facility] TULSAnkf eGFR 70 >=60 mL/min/1.73 m?? [facility] Comment: The eGFR was calculated using the CKD-EP I equation. As with all creatinine based estimates of kidney function, eGFR values calculated with the CKD-EPI equation are not accurate in patients wi th acute kidney failure, extremes of body mass or the acutely ill. http://Gummii/[facility] TULSAnkf Specimen Anatomical Collection Method Collection Time Receive d Time (Source) Location / / Volume Laterality Blood specimen 04/18/2018 9:19 AM 018 9:34 (specimen) EDT AM EDT Resulting Agency Comment Spec In Lab Danette Maxwell STACIE CHEMISTRY ORDERABLES Performing Organization Address City/State/[place] [address] (ABNORMAL) pro-Brain Natriuretic Peptide (04/18/2018 9:19 AM EDT) P athologist Signature ProBNP 2,199 (H) <=125 [facility] pg/mL [facility] Specimen Anatomical Collection Method Collection Time Receive d Time (Source) Location / / Volume Laterality Blood specimen 04/18/2018 9:19 AM 018 9:34 (specimen) EDT AM EDT Resulting Agency Comment Spec In Lab Danette Maxwell STACIE CHEMISTRY ORDERABLES Performing Organization Address City/[facility]/[place] [address] documented in this encounter Visit Diagnoses Diagnosis Chronic systolic heart failure documented in this encounter Care Teams Plush Cutter Relationship Specialty Start Date End Date Lovely Vicente MD PCP - General 04/16/15 [address] [place] [address] documented as of this encounter
--- OUTSIDE RECORDS SUMMARY | 2022-02-25 08:12 | XMS_ITS | Encounter Summary ---
:1945 Author Organization [facility] [place] [address] Care Team Providers Name Role Phone Lovely Vicente MD Primary Care Provider Encounter Details Date Type Department Care Team Description 08/19/2017 Office Visit Vascular Surgery at [place], PAD (peripheral artery [facility] GYM INSTRUCTOR disease) [facility] [address] [place], [place] VASCULAR SURGERY [address] [place] [address] [phone] Social History Tobacco Use Types Packs/Day Years [...] Nobles MD [facility] CARDIOLOGY [place], [place] [address] (Wo rk) 06/10/2022 Office Visit Dermatology Laura Scherer MD [facility] DR TEJA GR-DERMAT [place]LOGY [place], [place] [address] (Wo rk) documented as of this encounter Visit Diagnoses Diagnosis PAD (peripheral artery disease) Peripheral vascular disease, unspecified documented in this encounter Care Teams Manager Appointment Relationship Specialty Start Date End Date Lovely Vicente MD PCP - General 04/16/[address] [place] [address] documented as of this encounter
--- OUTSIDE RECORDS SUMMARY | 2022-02-25 08:12 | XMS_ITS | Encounter Summary ---
:1945 Author Organization [facility] [address] Care Team Providers Name Role Phone Lovely Vicente MD Primary Care Provider Encounter Details Date Type Department Care Team Description 09/06/2017 Telephone Vascular Surgery at [facility] Ninfa Clark, [place] [address] Social History Tobacco Use Types Packs/Day [...] [facility] ER [address] TADEO [place], [place] [address] (Wo rk) 06/10/2022 Office Visit Dermatology Laura Shcerer MD [facility] DR [address]-DERMAT [place], [place] [address] (Wo rk) documented as of this encounter Visit Diagnoses Not on filedocumented in this encounter Care Teams Field Representative/Health Education Relationship Specialty Start Date End Date Lovely Vicente MD PCP - General 04/16/[address] [place] [address] documented as of this encounter
--- OUTSIDE RECORDS SUMMARY | 2022-02-25 08:12 | XMS_ITS | Encounter Summary ---
:1945 Author Organization [facility] [place] [address] Care Team Providers Name Role Phone Lovely Vicente MD Primary Care Provider Encounter Details Date Type Department Care Team Description 10/05/2017 Unscheduled Cardiology at [facility] RONNIE Sin PATIENT NOT SEEN Encounter [facility] Tamiko Martinez MD [facility][note 3] [address] CARDIOLOGY DEPT [phone] [place] [address] Social History Tobacco Use Types Packs/Day Years [...] Cardiology Vitaliy Nobles MD [facility] ER DR TADEO [place], [place] [address] (Wo rk) 06/10/2022 Office Visit Dermatology Laura Scherer MD [facility] [address] TE[address] GR[address]DERMAT [place], [place] [address] (Wo rk) documented as of this encounter Visit Diagnoses Diagnosis DH PATIENT NOT SEEN documented in this encounter Care Teams Supervisor Telephone Information Relationship Specialty Start Date End Date Lovely Vicente MD PCP - General 04/16/[address] [facility] [address] [place] [address] documented as of this encounter
--- OUTSIDE RECORDS SUMMARY | 2022-02-25 08:12 | XMS_ITS | Encounter Summary ---
:1945 Author Organization [facility] [place] [address] Care Team Providers Name Role Phone Lovely Vicente MD Primary Care Provider Encounter Details Date Type Department Care Team Description 08/30/2017 [facility] ischemia formerly [facility] [address] [place], [place] VASCULAR SURGERY [address] [place] [address] [phone] Social History Tobacco Use Types Packs/Day Years [...] MD - 08/30/2017 2:00 PM EST [facility] staff: Patient returns. He is doing well [...] Cardiology Vitaliy Nobles MD [facility] [address] TADE[address] [place], [place] [address] (Wo rk) 06/10/2022 Office Visit Dermatology Laura Scherer MD [facility] DR [address]-DERMAT [place], [place] [address] (Wo rk) documented as of this encounter Visit Diagnoses Diagnosis Critical lower limb ischemia Unspecified circulatory system disorder documented in this encounter Care Teams Telesales Manager Relationship Specialty Start Date End Date Lovely Vicente MD PCP - General 04/16/[address] [place] [address] documented as of this encounter
--- OUTSIDE RECORDS SUMMARY | 2022-02-25 08:12 | XMS_ITS | Encounter Summary ---
:1945 Author Organization [facility] [address] Care Team Providers Name Role Phone Lovely Vicente MD Primary Care Provider Encounter Details Date Type Department Care Team Description 08/25/2017 Telephone Pain Management at [place], [place] [address] Social History Tobacco Use Types Packs/Day [...] Management Center Preauthorization Request Patient: Don Fatima [id number] Fax received from [employer] denying prior authorization for Lidocaine Patches prescribed by Barbra Soares APRN. RX insurance plan: [employer] RX insurance telephone: [phone] Patient Diagnosis: right foot pain secondary to PVD and ischemia ? Previous medications attempted: Tylenol, Tramadol, Dilaudid Authorization/Reference number: [id number] _x_ denied, provider and patient informed _x_ appeal initiated by provider, patient informed Angeles Rodrigez, RN documented in this encounter Plan of Treatment Upcoming Encounters Date Type Specialty Care Team Description 03/26/2022 Office Visit Cardiology Vitaliy Nobles MD [facility] ER DR TADEO [place], [place] [address] (Wo rk) 06/10/2022 Office Visit Dermatology Laura Scherer MD [facility] DR TE[address] GR[address]DERMAT [place], [place] [address] (Wo rk) documented as of this encounter Visit Diagnoses Not on filedocumented in this encounter Care Teams Book Coverer Relationship Specialty Start Date End Date Lovely Vicente MD PCP - General 04/16/[address] [place] [address] documented as of this encounter
--- OUTSIDE RECORDS SUMMARY | 2022-02-25 08:12 | XMS_ITS | Encounter Summary ---
:1945 Author Organization [facility] [place] [address] Care Team Providers Name Role Phone Lovely Vicente MD Primary Care Provider Encounter Details Date Type Department Care Team Description 08/19/2017 Hospital Encounter XRay at [facility] Martha Teague, S/P CABG x [address] [place] [address] [place] [address] RD [phone] [facility] [place], [place] [address] (Wo rk) Social History [...] MD [facility] CARDIOLOGY [place], [place] [address] (Wo rk) 06/10/2022 Office Visit Dermatology Laura Scherer MD [facility] [address]-DERMAT [place]LOGY [place], [place] [address] (Wo rk) documented as of [...] status documented in this encounter Care Teams Scrum Product Owner Relationship Specialty Start Date End Date Lovely Vicente MD PCP - General 04/16/[address] [place] [address] documented as of this encounter
--- OUTSIDE RECORDS SUMMARY | 2022-02-25 08:12 | XMS_ITS | Encounter Summary ---
:1945 Author Organization [facility] [place] [address] Care Team Providers Name Role Phone Lovely Vicente MD Primary Care Provider Encounter Details Date Type Department Care Team Description 09/03/2017 Telephone Vascular Surgery at [facility] Ninfa Clark, [place] [address] Social History Tobacco Use Types Packs/Day [...] help with the discomfort of the change. Door Furring Installer told the VNA that I would ask [...] [facility] ER DR TADEO [place], [place] [address] (Wo rk) 06/10/2022 Office Visit Dermatology Laura Scherer MD [facility] DR TEJA GR-DERMAT [facility] [place], [place] [address] (Wo rk) documented as of this encounter Visit Diagnoses Not on filedocumented in this encounter Care Teams Granite Block Paver Relationship Specialty Start Date End Date Lovely Vicente MD PCP - General 04/16/[address] [place] [address] documented as of this encounter
--- OUTSIDE RECORDS SUMMARY | 2022-02-25 08:12 | XMS_ITS | Encounter Summary ---
:1945 Author Organization [facility] [place] [address] Care Team Providers Name Role Phone Lovely Vicente MD Primary Care Provider Reason for Visit Reason Onset Date Comments VNA Calls 08/30/2017 Encounter Details Date Type Department Care Team Description 08/30/2017 Telephone Vascular Surgery at [facility] Cora Reid RN VNA Calls [facility] [place] [address] Social History Tobacco Use Types Packs/Day [...] 08/30/2017 11:16 AM EST Caller: Alfonso at [facility] [phone] Reason for call: Changing his wound vac [...] Alfonso who had been in contact with [facility]'s Wound Care Nurse who advised him to [...] Cardiology Vitaliy Nobles MD [facility] [address] TADE[address] [place], [place] [address] (Wo rk) 06/10/2022 Office Visit Dermatology Laura Scherer MD [facility] [address] TEJA GR-DERMAT [facility] [place], [place] [address] (Wo rk) documented as of this encounter Visit Diagnoses Not on filedocumented in this encounter Care Teams Chain Link Fence Installer Relationship Specialty Start Date End Date Lovely Vicente MD PCP - General 04/16/[address] [place] [address] documented as of this encounter
--- OUTSIDE RECORDS SUMMARY | 2022-02-25 08:12 | XMS_ITS | Encounter Summary ---
:1945 Author Organization [facility] [address] Care Team Providers Name Role Phone Lovely Vicente MD Primary Care Provider Encounter Details Date Type Department Care Team Description 09/07/2017 Laboratory Appointment Lab 3L [facility] Hx of [facility] [place] [address] Social History Tobacco Use Types Packs/Day Years [...] Vitaliy Nobles MD [facility] ER CARDIOLOGY [place], [place] [address] (Wo rk) 06/10/2022 Office Visit Dermatology Laura Scherer MD [facility] DR TEJA GR-DERMAT [place]LOGY [place], [place] [address] (Wo rk) documented as of [...] PM EST) athologist Signature Thyroglobulin 1.4 <=54.9 [facility] ng/mL [facility] Comment: Thyroglobulin levels may be [...] Thyroglob Ab <20.0 0.0 - 40.0 IU/mL [facility] Comment: Assay performed [...] - [place] [address] TSH (09/07/2017 2:41 PM EST) athologist Signature TSH 3.93 0.27 - 4.20 [facility] mlU/ML [facility] Specimen Anatomical Collection Method Collection Time Receive d Time (Source) Location / / Volume Laterality Blood specimen 09/07/2017 2:41 PM 018 2:46 (specimen) EST PM EST Resulting Agency Comment Spec In Lab Luz Prescott MD CHEMISTRY ORDERABLES Performing Organization Address City/[facility]/[place] [address] documented in this encounter Visit Diagnoses Diagnosis Hx of papillary thyroid carcinoma Personal history of malignant neoplasm o f thyroid documented in this encounter Care Teams Grout Pump Operator Relationship Specialty Start Date End Date Lovely Vicente MD PCP - General 04/16/15 [address] [place] [address] documented as of this encounter
--- OUTSIDE RECORDS SUMMARY | 2022-02-25 08:12 | XMS_ITS | Encounter Summary ---
:1945 [place] [address] Care Team Providers Name Role Phone Lovely Vicente MD Primary Care Provider Encounter Details Date Type Department Care Team Description 08/26/2017 Hospital Encounter Vascular Lab at [facility], Athero embolism of foot, right; [place], [place] Delayed surgi nusrat wound healing, [place] [phone] Social History Tobacco Use Types Packs/Day Years [...] Cardiology Vitaliy Nobles MD [facility] DR TADE[address] [place], [place] [address] (Wo rk) 06/10/2022 Office Visit Dermatology Laura Scherer MD [facility] DR [address]-DERMAT [place]LOG[place], [place] [address] (Wo rk) documented as of [...] Component Value Ref Test Analysis Performed At [facility] Range Method Time Signature VB Text Department: Vascular Surgery Lab VASCUBASE Report Patient: [id number] (DON HOANG) CPT: 38137 ICD10: T81.89XA;I75.021 Referring Physician: ELVER BLOOM ?? [...] encounter documented in this encounter Care Teams Offset Duplicating Machine Operator Relationship Specialty Start Date End Date Lovely Vicente MD PCP - General 04/16/15 [address] [facility] [place] [address] documented as of this encounter
--- OUTSIDE RECORDS SUMMARY | 2022-02-25 08:12 | XMS_ITS | Encounter Summary ---
:1945 Author Organization [facility] [place] [address] Care Team Providers Name Role Phone Lovely Vicente MD Primary Care Provider Reason for Visit Reason Comments Follow-up I'm having trouble with the VAC Encounter Details Date Type Department Care Team Description 08/26/2017 Office Visit Vascular Surgery at [facility], [place]IE Mercado Atheroembolism of foot, right; [facility] [address] Delayed surgical wound healing, initial encounter; [facility] VASCULAR SURG YEHUDA Acute on chronic systolic congestive hea rt failure ; [place], [place] [address] [phone] Social History Tobacco Use Types Packs/Day Years [...] home and into the care of the [facility]. However, since discharge from [facility] he has had some difficulty with continuation [...] [facility] Social Hx: Social History Substance [...] MD [facility] [address] TADE[address] [place], [place] [address] ([facility]) 06/10/2022 Office Visit Dermatology Laura Scherer MD [facility] DR TEJA GR-DERMAT [facility] [place], [place] [address] (Wo rk) documented as [...] Department: Vascular Surgery Lab VASCUBASE Report Patient: [id number] (GREGORY HOANG) CPT: 52167 ICD10: T81.89XA;I75.021 Referring Physician: ARIK BLOOM ?? [...] Signature Glucose Lvl 98 65 - 199 [facility] mg/dL [facility] Comment: Diabetes: >=200 mg/dL plus symp toms BUN 20 10 - 20 mg/dL [facility] Creatinine 1.17 0.80 - 1.50 mg/dL [facility] [...] 15 mmol/L [facility] Calcium 9.1 8.5 - 10.5 mg/dL [facility] Estimated GFR >60 >=60 [facility] Comment: The reported eGFR should be multiplied b y 1.2 for patients. The MDRD is not an appropriate measure o f renal function for patients with body mass extremes or in patients with acute kidney failure. http://CH4e.CashBet/DHnkdep http://Mapflow/DHMCnkf Specimen Anatomical Collection Method Collection Time Receive d Time (Source) Location / / Volume Laterality Blood specimen 08/26/2017 2:00 PM 018 2:15 (specimen) EST PM EST Resulting Agency Comment Spec In Lab Danette Maxwell STACIE CHEMISTRY ORDERABLES Performing Organization Address City/State/ZIP Code Phon e Number [address] (ABNORMAL) pro-Brain Natriuretic Peptide (08/26/2017 2:00 PM EST) P athologist Signature ProBNP 2,373 (H) <=125 [facility] pg/mL [facility] Specimen Anatomical Collection Method Collection Time Receive d Time (Source) Location / / Volume Laterality Blood specimen 08/26/2017 2:00 PM 018 2:15 (specimen) EST PM EST Resulting Agency Comment Spec In Lab Danette Maxwell STACIE CHEMISTRY ORDERABLES Performing Organization Address City/[facility]/[place] [address] documented in this encounter Visit Diagnoses Diagnosis Atheroembolism of foot, right Delayed surgical wound healing, initial encounter Acute on chronic systolic congestive hea rt failure Acute on chronic systolic heart failure Ischemic cardiomyopathy Other specified forms of chronic ischemi c heart disease documented in this encounter Care Teams Surface Boss Relationship Specialty Start Date End Date Lovely Vicente MD PCP - General 04/16/[address] [place] [address] [address] [place] [address] documented as of this encounter
--- OUTSIDE RECORDS SUMMARY | 2022-02-25 08:12 | XMS_ITS | Encounter Summary ---
:1945 Author Organization [facility] [place] [address] Care Team Providers Name Role Phone Lovely Vicente MD Primary Care Provider Encounter Details Date Type Department Care Team Description 09/16/2017 Hospital Encounter [place] [address] Social History Tobacco Use Types Packs/Day [...] Nobles MD [facility] CARDIOLOGY [place], [place] [address] (Wo rk) 06/10/2022 Office Visit Dermatology Laura Scherer MD [facility] DR TJEA GR-DERMAT OLOGY [place], [place] [address] (Wo rk) documented as of this encounter Procedures Procedure Name Priority Date/Time Associated Diagnosis Comme [facility] SURGICAL PATHOLOGY Routine 09/16/2017 7:28 AM Res ults for this REPORT EST procedure are i n the results section. documented in this encounter Results Surgical Pathology Report (09/16/2017 7:28 AM EST) Component Value Ref Test Analysis Performed At [facility] Range Method Time Signature Surgical [id number] ? Location: [facility] Pathology [place] Report The signing pathologist has (i) examined [...] Henrique Flower Verified: ??09/24/2017 ?Pathologist Performed at: ??-[facility] Dept. of Pathology, [place], [place] CLINICAL INFORMATION Specimen Submitted: A - [...] Organization Address City/State/ZIP Code Phon e Number [place], [place] [id number] [place] [address] documented in this encounter Visit Diagnoses Not on filedocumented in this encounter Care Teams Advertising Rep Relationship Specialty Start Date End Date Lovely Vicente MD PCP - General 04/16/[address] [place] [address] documented as of this encounter
--- OUTSIDE RECORDS SUMMARY | 2022-02-25 08:12 | XMS_ITS | Encounter Summary ---
:1945 Author Organization [place] [address] Care Team Providers Name Role Phone Lovely Vicente MD Primary Care Provider Reason for Referral Diagnostic Test (Routine) - Closed Specialty Diagnoses / Procedures Referred By Contact Refer red To Contact Cardiology Diagnoses Ischemic cardiomyopathy Acute on chronic systolic congestive heart failure Danette Maxwell APRN [facility] Non-Inv Card Lab Procedures Echocardiogram Transthoracic(Leb) [facility] [place] [address] [place] [address] Referral ID Status Reason Start Date Expiration Date Visits V isits Requested Authorized [id number] Closed Specialty 08/30/2017 08/30/2018 1 1 Service Requested Encounter Details Date Type Department Care Team Description 08/26/2017 Office Visit Cardiology [place] [facility] Danette Maxwell Ischemic cardiomyopathy; [facility] STACIE Gomes Acute on chronic systolic congestive hea rt failure ; Drive [facility] ASCVD (arteriosclerotic card iovascular disease); [place], [place] PAF (paroxysmal atrial fibrillation); [address] CARDIOLOGY PAD (peripheral artery disease) [phone] [place], [place] [address] Social History Tobacco Use Types Packs/Day Years [...] painful and swollen 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 [...] Vitaliy Nobles MD [facility] CARDIOLOGY [place], [place] [address] (Wo rk) 06/10/2022 Office Visit Dermatology Laura Scherer MD [facility] DR TE[address]DERMAT OLOGY [place], [place] [address] (Wo rk) documented as of this encounter Results ECHOCARDIOGRAM COMPLETE W CONTRAST (10/07/2017 10:23 AM EDT) athologist Signature EF 45 HEARTLAB SYSTEM Specimen (Source) Anatomical Location Collection Method / Collectio n Time Received Time / Laterality Volume 10/07/2017 Narrative HEART[facility] SYSTEM - 10/07/2017 11:13 AM ED T Procedure: ?Transthoracic Echocardiogram Patient: ?NATALYA Mccollum ? (Age): 1945(72y) Med Rec#: ? [id number] ?Sex: ?M ? Site Loc: ? [facility] ?Ht / Wt: ??173(cm)/82(kg) Pt. Loc: ?Echo Lab ?BSA: ?1.96 Study Date: ?? 10/07/2017 ?Pt. Type: Outpatient Tape: ? Referring: Danette Maxwell Reading: Iker Cuevas ([id number]) Pool Servicer: Yonathan Bocanegra Diagnosis: *ICD-10-PCS Ischemic cardiomyopathy (I2 [...] E-wave Vmax ?1.2 ?m/sec ? MV deceleration [id number] ?msec ? MV A-wave Vmax ?1 ?m/sec [...] ? Mid-Inferior ?Hypokinetic ? Mid-Inferoseptal ?Hypokinetic ? Langley-Septal ? Akinetic ? Langley-Anterior ? Hypokinetic ? Langley-Lateral ?Hypokinetic ? Langley-Inferior ? Hypokinetic ? Langley-Tip ?Akinetic ? This report has been electronically sign ed by: _ Iker Cuevas M.D. ? 10/07/2017 11:12:34 Images reviewed and interpretation verif ied [facility] Cardiac Ultrasound Laboratory Procedure Note Iker Cuevas MD - 10/07/2017Formatti ng of this note might be different from the original. Procedure: Transthoracic Echocardiogram Patient: NATALYA MCBRIDE(Age): [birth year]72y) Med Rec#: [id number] Sex: M Site Loc: [facility] Ht / Wt: 173(cm)/82(kg) Pt. Loc: Echo Lab BSA: 1.96 Study Date: 10/07/2017 Pt. Type: Outpati ent Tape: Referring: Danette Maxwell Reading: Iker Cuevas ([id number]) Pool Servicer: Yonathan Bocanegra Diagnosis: *ICD-10-PCS Ischemic cardiomyopathy (I2 [...] MV E-wave Vmax 1.2 m/sec MV deceleration [id number] msec MV A-wave Vmax 1 m/sec MV [...] Akinetic Mid-Posterolateral Hypokinetic Mid-Inferior Hypokinetic Mid-Inferoseptal Hypokinetic Langley-Septal Akinetic Langley-Anterior Hypokinetic Langley-Lateral Hypokinetic Langley-Inferior Hypokinetic Langley-Tip Akinetic This report has been electronically sign ed by: _ Iker Cuevas M.D. 10/07/2017 11:12 :34 Images reviewed and interpretation elvie hwang [facility] Cardiac Ultrasound Laboratory Danette Maxwell APRN ECHO ORDERABLES Performing Organization Address City/State/ZIP Code Phon e Number HEARTLAB SYSTEM Basic Metabolic Panel (non-fasting) (08/26/2017 2:00 PM EST) P athologist Signature Glucose Lvl 98 65 - 199 [facility] mg/dL [facility] LABORATORY Comment: Diabetes: >=200 mg/dL plus symp toms BUN 20 10 - 20 mg/dL [facility] LABORATORY Creatinine 1.17 0.80 - [...] mmol/L [facility] LABORATORY Calcium 9.1 8.5 - 10.5 mg/dL KATALINA Yarbrough [facility] LABORATORY Estimated GFR >60 >=60 KATALINA Wyatt [facility] LABORATORY Comment: The reported eGFR should be multiplied b y 1.2 for patients. The MDRD is not an appropriate measure o f renal function for patients with body mass extremes or in patients with acute kidney failure. http://OrbFlex/DHnkdep http://OrbFlex/DHMCnkf Specimen Anatomical Collection Method Collection Time Receive d Time (Source) Location / / Volume Laterality Blood specimen 08/26/2017 2:00 PM 018 2:15 (specimen) EST PM EST Resulting Agency Comment Spec In Lab Danette Maxwell STACIE CHEMISTRY ORDERABLES Performing Organization Address City/State/[place] [address] (ABNORMAL) pro-Brain Natriuretic Peptide (08/26/2017 2:00 PM EST) P athologist Signature ProBNP 2,373 (H) <=125 [facility] pg/mL [facility] LABORATORY Specimen Anatomical Collection Method Collection Time Receive d Time (Source) Location / / Volume Laterality Blood specimen 08/26/2017 2:00 PM 018 2:15 (specimen) EST PM EST Resulting Agency Comment Spec In Lab Danette Maxwell STACIE CHEMISTRY ORDERABLES Performing Organization Address City/State/ZIP [facility] [place] [address] documented in this encounter [...] failure documented in this encounter Care Teams Reclamation Worker Relationship Specialty Start Date End Date Lovely Vicente MD PCP - General 04/16/[address] [place] [address] [address] [place] [address] documented as of this encounter
--- OUTSIDE RECORDS SUMMARY | 2022-02-25 08:12 | XMS_ITS | Encounter Summary ---
:1945 Author Organization [facility] [place] [address] Care Team Providers Name Role Phone Lovely Vicente MD Primary Care Provider Reason for Visit Reason Comments Follow-up Encounter Details Date Type Department Care Team Description 08/19/2017 Office Visit Cardiac Surgery at [facility], Jock S/P C ABG (coronary [facility] N, artery bypass graft) [facility] [place] CARDIOTHORACIC [address] SURGERY [phone] [place], [place] [address] Social History Tobacco Use Types [...] office. Best personal regards, Yuan [facility] MD [phone] documented in this encounter Plan of Treatment Upcoming Encounters Date Type Specialty Care Team Description 03/26/2022 Office Visit Cardiology Vitaliy Nobles MD [facility] MEDICAL [facility] [address] TADE[address] [place], [place] [address] (Wo rk) 06/10/2022 Office Visit Dermatology Laura Scherer MD [facility] DR [address] OLOGY [place], [place] [address] (Wo rk) documented as of [...] 454 ms MUSE SYSTEM (Bezet) Calculated P Delta 20 degrees MUSE SYSTEM Calculated R Delta -29 degrees MUSE SYSTEM Calculated T Delta 121 degrees MUSE SYSTEM INTERPRETATION Normal sinus rhythm MUSE SYSTEM Inferior infarct (cited on or before 25-JAN-2013) Anterior 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) T wave abnormality, consider lateral ischemia Abnormal ECG When compared with ECG of 06-AUG-2017 12:37, No signif icant change was found Confirmed by MD Luci, Taurus Braun ([id number]) on 08/19/2017 1 0:37:38 PM Specimen Anatomical [...] status documented in this encounter Care Teams Rehab Trainer Relationship Specialty Start Date End Date Lovely Vicente MD PCP - General 04/16/[address] [place] [address] documented as of this encounter
--- OUTSIDE RECORDS SUMMARY | 2022-02-25 08:12 | XMS_ITS | Encounter Summary ---
:1945 Author Organization [facility] [place] [address] Care Team Providers Name Role Phone Lovely Vicente MD Primary Care Provider Reason for Referral Diagnostic Test (Routine) - Closed Specialty Diagnoses / Procedures Referred By Contact Refer red To Contact Cardiology Diagnoses Ischemic cardiomyopathy Acute on chronic systolic congestive heart failure Danette Maxwell APRN [facility] Non-Inv Card Lab Procedures Echocardiogram Transthoracic(Leb) [place] [address] [place] [address] Referral ID Status Reason Start Date Expiration Date Visits V isits Requested Authorized [id number] Closed Specialty 08/30/2017 08/30/2018 1 1 Service Requested Reason for Visit Diagnostic Test (Routine) - Closed Specialty Diagnoses / Procedures Referred By Contact Refer red To Contact Cardiology Diagnoses Ischemic cardiomyopathy Acute on chronic systolic congestive heart failure Danette Maxwell APRN [facility] Non-Inv Card Lab Procedures Echocardiogram Transthoracic(Leb) [place] [address] [place] [address] Referral ID Status Reason Start Date Expiration Date Visits V isits Requested Authorized [id number] Closed Specialty 08/30/2017 08/30/2018 1 1 Service Requested Encounter Details Date Type Department Care Team Description 10/07/2017 Hospital Encounter Non-Invasive Ischemic cardiomyopathy; Cardiology Lab Barbara Craig on chronic systolic congest[place] [address] Social History Tobacco Use Types Packs/Day [...] Cardiology Vitaliy Nobles MD [facility] ER CARDIOLOGY [place], [place] [address] (Wo rk) 06/10/2022 Office Visit Dermatology Laura Scherer MD [facility] ER [address] [place] [id number] (Wo rk) documented as of this encounter [...] ED T Procedure: ?Transthoracic Echocardiogram Patient: ?NATALYA GREGORY Veda ? (Age): 1945(72y) Med Rec#: ? [id number] ?Sex: ?M ? Site Loc: ? [facility] ?Ht / Wt: ??173(cm)/82(kg) Pt. Loc: ?Echo Lab ?BSA: ?1.96 Study Date: ?? 10/07/2017 ?Pt. Type: Outpatient Tape: ? Referring: Danette Maxwell Reading: Iker Cuevas ([id number]) Rehabilitation Attendant: Yonathan Bocanegra Diagnosis: *ICD-10-PCS Ischemic cardiomyopathy (I2 [...] E-wave Vmax ?1.2 ?m/sec ? MV deceleration [id number] ?msec ? MV A-wave Vmax ?1 ?m/sec [...] ? Mid-Inferior ?Hypokinetic ? Mid-Inferoseptal ?Hypokinetic ? Lamar-Septal ? Akinetic ? Lamar-Anterior ? Hypokinetic ? Lamar-Lateral ?Hypokinetic ? Lamar-Inferior ? Hypokinetic ? Lamar-Tip ?Akinetic ? This report has been electronically sign ed by: _ Iker Cuevas M.D. ? 10/07/2017 11:12:34 Images reviewed and interpretation verif ied [facility] Cardiac Ultrasound Laboratory Procedure Note Iker Cuevas MD - 10/07/2017Formatti ng of this note might be different from the original. Procedure: Transthoracic Echocardiogram Patient: NATALYA MCBRIDE(Age): [birth year]72y) Med Rec#: [id number] Sex: M Site Loc: [facility] Ht / Wt: 173(cm)/82(kg) Pt. Loc: Echo Lab BSA: 1.96 Study Date: 10/07/2017 Pt. Type: Outpati ent Tape: Referring: Danette Maxwell Reading: Iker Cuevas ([id number]) Rehabilitation Attendant: Yonathan Bocanegra Diagnosis: *ICD-10-PCS Ischemic cardiomyopathy (I2 [...] MV E-wave Vmax 1.2 m/sec MV deceleration [id number] msec MV A-wave Vmax 1 m/sec MV [...] Akinetic Mid-Posterolateral Hypokinetic Mid-Inferior Hypokinetic Mid-Inferoseptal Hypokinetic Lamar-Septal Akinetic Lamar-Anterior Hypokinetic Lamar-Lateral Hypokinetic Lamar-Inferior Hypokinetic Lamar-Tip Akinetic This report has been electronically sign ed by: _ Iker Cuevas M.D. 10/07/2017 11:12 :34 Images reviewed and interpretation elvie hwang [facility] Cardiac Ultrasound Laboratory Danette [...] Routine documented in this encounter Care Teams Machine Molder Relationship Specialty Start Date End Date Lovely Vicente MD PCP - General 04/16/[address] [place] [address] documented as of this encounter
--- OUTSIDE RECORDS SUMMARY | 2022-02-25 08:12 | XMS_ITS | Encounter Summary ---
:1945 Author Organization [place] [address] Care Team Providers Name Role Phone Lovely Vicente MD Primary Care Provider Encounter Details Date Type Department Care Team Description 09/06/2017 Orders Only Vascular Surgery at [facility] Ninfa Clark, [facility] [place] [address] Social History Tobacco Use Types Packs/Day [...] [facility] ER CARDIOLOGY [place], [place] [address] (Wo rk) 06/10/2022 Office Visit Dermatology Laura Scherer MD [facility] ER DR TE[address] GR[address] OLOGY [place], [place] [address] (Wo rk) documented as of this encounter Visit Diagnoses Not on filedocumented in this encounter Care Teams Display Manager Relationship Specialty Start Date End Date Lovely Vicente MD PCP - General 04/16/[address] [place] [address] documented as of this encounter
--- OUTSIDE RECORDS SUMMARY | 2022-02-25 08:12 | XMS_ITS | Encounter Summary ---
:1945 Author Organization [facility] Address [facility] [place] [address] Care Team Providers Name Role Phone Loveyl Vicente MD Primary Care Provider Encounter Details Date Type Department Care Team Description 10/07/2017 Office Visit Cardiology [place] [facility] Danette Maxwell Chronic systolic heart failu re; [facility] A, DISPLAY SCREEN FABRICATOR S/P CABG x 3; Drive [facility] On amiodarone therapy; [place], [place] Atrial fibrillation, unspecified type; [address] CARDIOLOGY ASCVD (arteriosclerotic cardiovascular d isease) [phone] [place], [place] [address] Social History Tobacco Use Types [...] - documented in this encounter Progress Notes [place] Danette A, DISPLAY SCREEN FABRICATOR - 10/07/2017 11:20 AM EDT ID and [...] and 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 Espino On IV antibiotics at [facility] Today: Mr. Fatima is accompanied by his [...] continue to see Dr. Bains well at [facility] and follow his wound on his right lower extremity. And she will continue to direct antibiotic treatment. Ihave asked that the echocardiogram results be faxed to Dr. Zurita at [facility]. 1. ASCVD Continue ASA, BB and statin [...] and bone removal by Dr. Aguero at [facility]. Currently receiving IV antibiotics at [facility] ? Plan: 1. A review of the [...] Nobles MD [facility] DR [address] [place], [place] [address] (Wo rk) 06/10/2022 Office Visit Dermatology Laura Scherer MD [facility] DR TEJA GR-DERMAT [facility] [place], [place] [address] (Wo rk) documented as of this encounter Results (ABNORMAL) Basic Metabolic Panel (non-fasting) (10/07/2017 8:48 AM EDT) athologist Signature Glucose Lvl 99 65 - 199 [facility] mg/dL [facility] LABOR[facility] Comment: Diabetes: >=200 mg/dL plus symp toms BUN 27 (H) 10 - 20 mg/dL [facility] LABOR[facility] Creatinine 1.07 0.80 - 1.50 mg/dL [facility] LABOR[facility] Sodium 143 135 - 145 mmol/L [facility] Potassium 4.7 3.5 - 5.0 mmol/L [facility] [...] 15 mmol/L [facility] Calcium 8.4 (L) 8.5 - 10.5 mg/dL [facility] Estimated GFR >60 >=60 [facility] Comment: The reported eGFR should be multiplied b y 1.2 for patients. The MDRD is not an appropriate measure o f renal function for patients with body mass extremes or in patients with acute kidney failure. http://TheFriendMail/DHnkdep http://TheFriendMail/DHMCnkf Specimen Anatomical Collection Method Collection Time Receive d Time (Source) Location / / Volume Laterality Blood specimen 10/07/2017 8:48 AM 018 8:50 (specimen) EDT AM EDT Resulting Agency Comment Spec In Lab Danette Maxwell APRN CHEMISTRY ORDERABLES Performing Organization Address City/[facility] [address]/[place] [address] (ABNORMAL) pro-Brain Natriuretic Peptide (10/07/2017 8:48 AM EDT) P athologist Signature ProBNP 1,170 (H) <=125 [facility] pg/mL [facility] Specimen Anatomical Collection Method Collection Time Receive d Time (Source) Location / / Volume Laterality Blood specimen 10/07/2017 8:48 AM 018 8:50 (specimen) EDT AM EDT Resulting Agency Comment Spec In Lab Danette Maxwell APRN CHEMISTRY ORDERABLES Performing Organization Address City/State/[place] [address] documented in this encounter Visit Diagnoses Diagnosis Chronic systolic heart failure S/P CABG x 3 Postsurgical aortocoronary bypass status On amiodarone therapy Atrial fibrillation, unspecified type ASCVD (arteriosclerotic cardiovascular d isease) Unspecified cardiovascular disease documented in this encounter Care Teams Retail Grocer Relationship Specialty Start Date End Date Lovely Vicente MD PCP - General 04/16/[address] [place] [address] documented as of this encounter
--- OUTSIDE RECORDS SUMMARY | 2022-02-25 08:12 | XMS_ITS | Encounter Summary ---
:1945 Author Organization [facility] [place] [address] Care Team Providers Name Role Phone Lovely Vicente MD Primary Care Provider Reason for Referral Consultation (Routine) - Specialty Diagnoses / Procedures Referred By Contact Refer red To Contact [facility] Diagnoses Atheroembolism of foot, right Delayed surgical wound healing, subsequent encounter Aurelia Rivera PA [address] [facility] [place] [address] Referral ID Status Reason Start Date Expiration Date Visits V isits Requested Authorized [id number] Consult, 09/08/2017 03/07/2018 1 1 Test & Treat Reason for Visit Reason Comments Wound Check My foot hurts Encounter Details Date Type Department Care Team Description 09/07/2017 Office Visit Vascular Surgery at MiguelAurelia PA Atheroembolism of foot, right; [facility] [address] [facility] Delayed surgical wound healing, subseque nt encounter [facility] [place] [address] [phone] Social History Tobacco Use Types Packs/Day Years [...] [facility] have maintained a better seal with [...] at [facility] MAIN OR ??? PRO AMPUTATION FOOT, TRANSMETATARSAL Right 08/09/2017 AMPUTATION, TRANSMETATARSAL (WRVU 12.71) performed by Yonathan Smith MD at [facility] MAIN OR ??? [...] MD at [facility] ENDOSCOPY ??? PRO DRESSING CHANGE UNDER ANESTHESIA Right 08/11/2017 (MSURG) DRESSING CHANGE (FOR OTHER THAN IVAN) UNDER ANES. (WRVU 0.86) performed by Lamar Smith MD at [facility] MAIN OR ??? PRO ENDOSCOPY W/VIDEO-ASST VEIN HARVEST, CABG Right 07/07/2017 ENDOSCOPIC HARVEST VEIN(S) FOR CABG (WRVU 0.31) performed by Yuan Retana MD at [facility] MAIN OR ??? PRO THYROIDECTOMY 03/28/2013 THYROIDECTOMY, TOTAL OR COMPLETE performed by Manny Mcknight MD at [facility] OR Social Hx: Social History Substance [...] Nobles MD [facility] [address] [place], [place] [address] (Wo rk) 06/10/2022 Office Visit Dermatology Laura Scherer MD [facility] DR [address] [place], [place] [address] (Wo rk) Scheduled Referrals Name Type Priority Associated Diagnoses Order S chedule Referral to Wound Outpatient Referral Routine Atheroembolism o f foot, Ordered: Clinic right 09/08/2017 Delayed surgical wound healing, subsequent encounter documented as of this encounter Visit Diagnoses Diagnosis Atheroembolism of foot, right Delayed surgical wound healing, subseque nt encounter documented in this encounter Care Teams Scaler Relationship Specialty Start Date End Date Lovely Vicente MD PCP - General 04/16/[address] [place] [address] documented as of this encounter
--- OUTSIDE RECORDS SUMMARY | 2022-02-25 08:12 | XMS_ITS | Encounter Summary ---
:1945 Author Organization [facility] [place] [address] Care Team Providers Name Role Phone Lovely Vicente MD Primary Care Provider Encounter Details Date Type Department Care Team Description 10/05/2017 Telephone Cardiology at [facility] Tamiko Sin MD [facility] [place] [address] CARDIOLOGY DEPT [phone] [place], [place] [address] (Wo rk) Social History Tobacco [...] 03/26/2022 Office Visit Cardiology Vitaliy Nobles MD [facility] MEDICAL [facility] ER DR [place], [place] [address] (Wo rk) 06/10/2022 Office Visit Dermatology Laura Scherer MD [facility] [address] OLOGY [place], [place] [address] (Wo rk) documented as of this encounter Visit Diagnoses Not on filedocumented in this encounter Care Teams Inspector Boiler Relationship Specialty Start Date End Date Lovely Vicente MD PCP - General 04/16/[address] [place] [address] [address] [facility] [place] [address] documented as of this encounter
--- OUTSIDE RECORDS SUMMARY | 2022-02-25 08:13 | XMS_ITS | Encounter Summary ---
:1945 [place] [address] Care Team Providers Name Role Phone Lovely Vicente MD Primary Care Provider Reason for Visit Auth/Cert Specialty Diagnoses / Procedures Referred By Contact Refer red To Contact Diagnoses Critical lower limb ischemia CELLULITIS RT FOOT Procedures EMERGENCY Referral ID Status Reason Start Date Expiration Date Visits Requ ested Visits Authorized [id number] 1 1 Encounter Details Date Type Department Care Team Description 08/06/2017 - Hospital Encounter 5 Yonathan Oneill lower limb ischemia; 08/16/2017 Su Flores MD Ischemic foot Hospital [facility] DR Siddiqui [place] [address]2014 [phone] Social History Tobacco Use Types Packs/Day Years [...] 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 [...] Dorsalis Pedis (Ankle) Artery ?132 ? 0.94 ??[place]-Biphasic ? Posterior Tibial (Ankle) Artery ??154 ? 1.10 ??[place]-Biphasic ? Fourth Toe ? 67 ?0.48 ?? [...] the foot. Discharge Conditions/Prognosis: Good Discharge to: [facility] Rehab Discharge Medications: Your Medications New [...] For any problems or questions please call [phone] ZELDA Smith, farm operations technical director Nurse Clinician For issues on weeknights after 5pm and weekends please call [phone] and ask for the Vascular Fellow online affiliate marketing manager. General Instructions None Future Appointments and Orders Future Appointments Provider Department Dept Phone 08/26/2017 4:00 PM Aurelia Rivera PA [facility] [phone] 09/07/2017 3:00 PM LAB, THREE L Lab 3L [facility] [phone] 09/07/2017 4:00 PM Luz Prescott MD Endocrinology [facility] [phone] 09/09/2017 8:00 AM Barbra Soares APRN Pain Management [facility] [phone] Please bring a list of your current [...] For any problems or questions please call [phone] ZELDA Smith, farm operations technical director Nurse Clinician For issues on weeknights after 5pm and weekends please call [phone] and ask for the Vascular Fellow online affiliate marketing manager. documented in this encounter Medications at [...] Management Discharge Note Patient Destination: [facility] ([facility]) [address] [place] [address] Transportation: with (at bedside) Time of Discharge: by 12 noon Level of Care: swing Patient Aware: yes Family Notified: yes Md to call report to: Yissel Quintero [employer] already called RN to call report to: [phone] Shirin Wolf Office of Care Management Pager [phone] Shirin Wolf RN - 08/16/2017 10:50 AM EST [facility] has offered pt swing bed. Pt and accept bed. will transport via car. [employer] Yissel Quintero aware; d/c paperwork will be completed by 12 noon. [facility] requests pt arrival by 1400 today; [employer], RN, and family aware. [employer] called [facility] and was told that they prefer pt to arrive with wound vac dressing applied but clamped. [employer] applied new wound vac dressing. RN has [facility] number to call report. PASSR completed; [employer] paged to request provider signature in highlighted space. Indigo from [facility] notified via email that home wound vac now cancelled; [facility] has picked up from room and order cancelled. Packet started and provided to director community organization. Medicare important message explained to patient, patient signed. Copy provided to patient and signature page to OCM for inclusion in pt EMR. Radha Georges - 08/16/2017 10:34 AM EST Office of Care Management/Charge Loader Patient Name: Gregory Hoang : 1945 Patient has been offered a swing bed at [facility]. The patient will be transported by private transportation. No MD to MD report necessary Please call Nursing Report to [phone], ask for wringer machine operator. Info to accompany patient: Narcotic Prescriptions Copies of Medication Administration Records and IV sheets for past 10 days. Plan: Charge Loader will be available to the patient and Licensing Specialist-RN and/or Drafter Tool Design for further assistance. Patient will be discharged to: [place] [phone] Radha Powers, Charge Loader Mira Black, VAMSI - 08/15/2017 10:05 PM EST [address] Flores to ask if he wanted to hold metoprolol dose. BP 95/58. OK to hold this dose Courtney Brito - 08/15/2017 3:26 PM EST Office of Care Management(OCM)/Charge Loader(RS)/ D/C Planning re : Patient is medically ready for d/c today. RS has been in contact with [facility] to see if they could offer a bed. [facility] is still reviewing the case and need their MD to review chart prior to accepting or declining. OCM team needs to check in with [facility] tomorrow to check on status. 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 Vac [...] to: [facility] PHONE: [phone] FAX: [phone] CM spoke with RS who said that [...] rehab. Await recommendations from PT. Covering pager #[phone]. 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 Call Center Coordinator Kaitlin Saha, RN Pager #[phone] Payam Rosales - 08/13/2017 2:37 PM EST Family Worker Encounter Note Patient Name: Gregory Hoang : [id number] MR#: [id number] Admit Date: 08/06/2017 1:41 PM Hospital Day 7 days Narrative: Visited to introduce and assess acceptance of Family Worker services. Pt was awake, alert, oriented and in chair and family was there. Assessment:Patient coping positively with stresses of illness/hospitalization at this time. Pt says that he is hoping to get better and his family was there. Pt says that he has family care and supportand taking one day at time. Intervention and Outcome: Provided emotional support and encouraging presence. 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 A letter describing our affiliations was reviewed with them and theywere educated about their right to choose where referrals are placed. Patient requests referral to [facility]. PHONE: [phone] FAX: [phone]. And Home NPWT (Negative Pressure Wound Therapy) aka wound vac device made available to pt. Serial # confirmed. Reviewed [facility] Proof of Delivery/Assignment of Benefits Statement(POD/AOB) Form w patient or authorized agent signing on behalf of patient. Copy of POD/AOB provided to pt and other copy faxed to [employer] @ fax# [phone] Expected date of discharge: 08/12/2017. 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 Address: [address] [place] [address] [place] [address] (home) Mobile: Telephone Information: Referring Provider: No [...] by Manny Mcknight MD at [facility] MAIN OR ??? PRO CABG, ARTERIAL, SINGLE N/A 07/07/2017 @CABG, USING ARTERIAL GRAFT;SINGLE ARTERIAL GRAFT (WRVU 33.75) performed by Yuan Retana MD at [facility] MAIN OR ??? PRO CABG, ARTERY-VEIN, TWO N/A 07/07/2017 @CABG, TWO VENOUS GRAFTS & ARTERIAL GRAFT (WRVU 7.93) performed by Yuan Retana MD at [facility] MAIN OR ??? PRO COLONOSCOPY, REMV LESN, SNARE 01/16/2014 COLONOSCOPY, POLYPECTOMY, REMOVAL LESION BY SNARE performed by Nohemi Jaimes MD at [facility] ENDOSCOPY ??? PRO ENDOSCOPY W/VIDEO-ASST VEIN HARVEST, CABG Right 07/07/2017 ENDOSCOPIC HARVEST VEIN(S) FOR CABG (WRVU 0.31) performed by Yuan Retana MD at [facility] MAIN OR ??? 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 Heparin gtt continues to run. Pt [...] of : 1945 AGE 72 y.o. Address: [address] [place] [address] [place] [address] (home) Mobile: Telephone Information: Referring Provider: No [...] by Manny Mcknight MD at [facility] MAIN OR ??? PRO CABG, ARTERIAL, SINGLE N/A 07/07/2017 @CABG, USING ARTERIAL GRAFT;SINGLE ARTERIAL GRAFT (WRVU 33.75) performed by Yuan Retana MD at [facility] MAIN OR ??? PRO CABG, ARTERY-VEIN, TWO N/A 07/07/2017 @CABG, TWO VENOUS GRAFTS & ARTERIAL GRAFT (WRVU 7.93) performed by Yuna Retana MD at [facility] MAIN OR ??? PRO COLONOSCOPY, REMV LESN, SNARE 01/16/2014 COLONOSCOPY, POLYPECTOMY, REMOVAL LESION BY SNARE performed by Nohemi Jaimes MD at [facility] ENDOSCOPY ??? PRO ENDOSCOPY W/VIDEO-ASST VEIN HARVEST, CABG Right 07/07/2017 ENDOSCOPIC HARVEST VEIN(S) FOR CABG (WRVU 0.31) performed by Yuan Retana MD at [facility] MAIN OR ??? 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 Vascular resident online affiliate marketing manager and will forward result to the team prior to rounds. Melba Cruz RN - 08/08/2017 4:06 AM EST Fall Event Note Gregory Hoang [id number] 08/08/2017 Time of Fall: 0400 Was the [...] MD - 08/07/2017 4:32 PM EST [facility] staff: Patient was seen and examined [...] EST Vascular Surgery Progress Note ID: Gregory Haong is a 72 y.o. 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 [...] by Manny Mcknight MD at [facility] MAIN OR ??? PRO CABG, ARTERIAL, SINGLE N/A 07/07/2017 @CABG, USING ARTERIAL GRAFT;SINGLE ARTERIAL GRAFT (WRVU 33.75) performed by Yuan Retana MD at [facility] MAIN OR ??? PRO CABG, ARTERY-VEIN, TWO N/A 07/07/2017 @CABG, TWO VENOUS GRAFTS & ARTERIAL GRAFT (WRVU 7.93) performed by Yuan Retana MD at [facility] MAIN OR ??? PRO COLONOSCOPY, REMV LESN, SNARE 01/16/2014 COLONOSCOPY, POLYPECTOMY, REMOVAL LESION BY SNARE performed by Nohemi Jaimes MD at [facility] ENDOSCOPY ??? PRO ENDOSCOPY W/VIDEO-ASST VEIN HARVEST, CABG Right 07/07/2017 ENDOSCOPIC HARVEST VEIN(S) FOR CABG (WRVU 0.31) performed by Yuan Retana MD at [facility] MAIN OR ??? PRO THYROIDECTOMY 03/28/2013 THYROIDECTOMY, TOTAL OR COMPLETE performed by Manny Mcknight MD at [facility] MAIN OR Functional Status/Social Hx: Quit [...] left blue toes with CTA showing R GUM WORKER pseudoaneurysm (now thrombosed) and occluded ATs bilaterally. [...] 2.5x80 5. Completion RLE angiogram 6. L GUM WORKER angiogram 7. 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 - L GUM WORKER angriogram demonstrated: High femoral bifurcation over the proximal half of the femoral head. L GUM WORKER access in the distal L GUM WORKER. - Closure device: Mynx Technical Procedure: The [...] for a 45cm 5F Destination. V18 and Independence and QuickCross catheters were used to select [...] 5F. A stationed picture of the L GUM WORKER was performed as the patient was noted to have a very high bifurcation. Access appeared in the distal R GUM WORKER. Closure and sheath removal was performed with [...] PM EST 1440 report called to 5 [place] junction nurse Tessa AGUSTIN documented in this encounter [...] with pt and pt's spouse. Discharge to [facility]. Goal: Individualization & Mutuality Outcome: Outcome [...] sit/sit to supine -- Bed Mobility Goal, [place] Level independent -- Bed Mobility Goal, Date [...] days -- Transfer Training Goal, Activity Type emv-vs-acodj/knkaf-hq-qhz -- Transfer Train Goal, [place] Level conditional independence -- Transfer Train Goal, [...] call cabello within reach, Hourly rounding by RN/CITY COLLECTOR. Bed alarm / Chair alarm. Patient-specific fall [...] Smith MD - 08/15/2017 6:28 PM EST [facility] Operative Note Patient Name: Gregory Hoang : [id number] MR#: [id number] Case Date: 08/09/2017 Surgeon: Surgeon(s) and Role: [...] 2.5x80 5. Completion RLE angiogram 6. L GUM WORKER angiogram 7. Mynx closure Precautions/Restrictions: fall, sternal [...] feet/ bed -> bathroom). Anticipated Discharge Disposition: custodial facility, other (see comments) (or swing bed) Pager: [phone] BASSAM ELIAS, PT 08/14/2017 Inpatient Physical Therapy [...] to Achieve by discharge Gait Training Goal, [place] Level conditional independence;set up required Gait Training [...] these facilities over the weekend except for [facility]. CM spoke with [facility] CM Drea Sandhu, VAMSI who said that they do not anticipate any beds over the weekend. Reviewed with patient/ that they need to be aware that patient will need to take the first bed offered at the facilities that they make referrals to. Their choices are: 1- [facility] PHONE: [phone] FAX: [phone] 2- [facility] ([facility]) [address] [place] [address] 3- [facility]) [address] [place] [address] I have discussed Medicare/Private Insurance [...] RS/CM on Wednesday to follow-up. Covering pager #[phone] for today. Plan of Care - Henrique [...] with additional findings of pseudoaneurysm on R GUM WORKER and bilateral anterior tibial artery occlusions. Was [...] an outpatient once discharged. Have patient call [phone] to set up an appointment. Follow-up: Dermatology will sign-off for now. Please do not hesitate to contact us if you have any questions orconcerns. Impression and Recommendations discussed with primary team on 08/13/2017. Karo Henderson MD Resident in Dermatology Section of Dermatology, Department of Surgery [facility] Pager [phone] Patient seen and evaluated with staff Jewellery Designer: Halima Cordero MD Section of Dermatology [facility] Level of Resident Supervision: Direct Supervision (The [...] 2.5x80 5. Completion RLE angiogram 6. L GUM WORKER angiogram 7. Mynx closure Active Non-Hospital Problems [...] home with home health ([facility] PT[facility]OT) Pager: [phone] YASIR TELLO OT 08/12/2017 Occupational Therapy Rehabilitation [...] 2.5x80 5. Completion RLE angiogram 6. L GUM WORKER angiogram 7. Mynx closure Past Medical History: [...] with 24/7 assistance and maximal services) Pager: [phone] NICHOLAS MORA, PT 08/12/2017 Physical Therapy Rehabilitation [...] sit/sit to supine -- Bed Mobility Goal, [place] Level independent -- Bed Mobility Goal, Outcome Achieved -- goal ongoing Goal: Gait Training Goal Stand Alone Therapy Goal Outcome: Ongoing (Interventions Implemented as Appropriate) 08/11/17 1310 08/12/17 1510 Gait Training Goal Gait Training Goal, Date Established 08/11/17 -- Gait Training Goal, Time to Achieve 5 - 7 days -- Gait Training Goal, [place] Level conditional independence -- Gait Training Goal, [...] days -- Transfer Training Goal, Activity Type gsv-iz-xbkez/bttda-fc-kji -- Transfer Train Goal, [place] Level conditional independence -- Transfer Training Goal, [...] Smith MD - 08/11/2017 2:52 PM EST [facility] Operative Note Patient Name: Gregory Hoang : [id number] MR#: [id number] Case Date: 08/11/2017 Surgeon: Surgeon(s) and Role: [...] 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 Completion RLE angiogram 6. L GUM WORKER angiogram 7. Mynx closure He is very [...] Anticipated Discharge Disposition: inpatient rehabilitation facility Pager: [phone] LAWRENCE GONZALEZ, PT 08/11/2017 Physical Therapy Rehabilitation [...] to sit/sit to supine Bed Mobility Goal, [place] Level independent Goal: Gait Training Goal Stand Alone Therapy Goal Outcome: Ongoing (Interventions Implemented as Appropriate) 08/11/17 1310 Gait Training Goal Gait Training Goal, Date Established 08/11/17 Gait Training Goal, Time to Achieve 5 - 7 days Gait Training Goal, [place] Level conditional independence Gait Training Goal, Assist [...] 7 days Transfer Training Goal, Activity Type sil-xx-sfcsp/tqoos-zb-jhq Transfer Train Goal, [place] Level conditional independence Plan of [facility] Annetta Sandoval RN - 08/11/2017 7:21 AM [...] call cabello within reach, Hourly rounding by RN/CITY COLLECTOR. Bed alarm / Chair alarm. ? Patient-specific [...] 04/05/2013 Hospitalizations Within the Past 30 Days: [facility] 07/20/2017 Anticipated Length Of Stay (If known): Expected Length of Hospitalization: 5-7 days2-3 days Current Decision-Making Capacity: Alert and oriented x 4 Advance Care Planning: on file Kisha Hoang [facility] [phone] Current Coping/Education/Information Needs: pt and spouse state [...] Health/Prescription Coverage: Primary Insurance: MEDICARE Secondary Insurance: [employer] [facility] Prescription Coverage: See above Preferred Pharmacy: [facility] Other: N/A Primary Care Provider: Lovely Vicente MD [phone] Patient/Caregiver Goals of Treatment: Patient plans to return home when medically ready Potential Needs for Transition of Care: Rehab/SNF: N/A Home Health: [facility]. DME: pt has a cane and [...] of care planning. Kaitlin Saha RN Pager: [phone] Plan of Care - Melba Jaramillo RN [...] call cabello within reach, Hourly rounding by RN/CITY COLLECTOR. Bed alarm / Chair alarm. Patient-specific fall [...] at bedside and MD TEAM Carrying pager [phone] contacted (via Radio page) and notified of [...] MD [facility] ER CARDIOLOGY [place], [place] 0[address] (Wo rk) 06/10/2022 Office Visit Dermatology Laura Scherer MD [facility] DR TEJA GR-DERMAT OLOGY [place], [place] [address] (Wo rk) documented as of [...] section. TYPE AND SCREEN Routine 08/09/2017 1:10 ([facility]/CGP/SHANDA) AM EST BASIC METABOLIC PANEL Routine 08/09/2017 [...] Results POCT Glucose (08/16/2017 7:28 AM EST) athologist Signature POC Glucose 160 65 - [address] [facility] mg/dL [facility] Comment: Supplemental ranges: <140 mg/dL before meals <180 mg/dL all other times of the day Specimen Anatomical Collection Method Collection Time Receive d Time (Source) Location / / Volume Laterality Blood specimen 08/16/2017 7:28 AM 018 7:28 (specimen) EST AM EST Yonathan Smith MD POINT OF CARE TEST ORDERABLE S Performing Organization Address City/State/[place] [address] (ABNORMAL) Differential, Automated (08/16/2017 5:08 AM EST) Patholo gist Method Time Signature Neutrophils % 73.9 % [facility] Neutr Abs (ANC) 5.37 1.70 - [facility] 6.10 [facility] x10(3)/[facility] LABORATORY Lymphocytes % 10.1 % [facility] Lymphocytes Abs 0.7 (L) 0.9 - 3.[address] [facility] x10(3)/[facility] LABORATORY Monocytes % 10.1 % [facility] Monocyte Abs 0.7 0.3 - 0.[address] [facility] x10(3)/[facility] LABORATORY Eosinophils % 5.1 % [facility] Eosinophils Abs 0.4 0.0 - 0.[address] [facility] x10(3)/[facility] LABORATORY Basophils % 0.4 % [facility] Basophils Abs 0.0 0.0 - 0.[address] [facility] x10(3)/[facility] LABORATORY Immature Gran % 0.40 % [...] Melisa Gran Abs 0.03 0.00 - 0.04 x10(3)/[facility] MAR Y [facility] Specimen Anatomical Collection Method Collection Time Receive d Time (Source) Location / / Volume Laterality Blood specimen 08/16/2017 5:08 AM 018 5:20 (specimen) EST AM EST Resulting Agency Comment Spec In Lab Yonathan Smith MD HEMATOLOGY ORDERABLES Performing Organization Address City/State/[place] [address] (ABNORMAL) Hemogram (08/16/2017 5:08 AM EST) Analysis Performed At Patho logist Time Signature WBC 7.3 4.0 - 9.[address] [facility] x10(3)/[facility] LABORATORY RBC 3.36 (L) 4.58 - [facility] 5.54 [facility] x10(6)/[facility] LABORATORY Hemoglobin 9.7 (L) 13.7 - [facility] 16.5 gm/dL [facility] Hematocrit 30.3 (L) 40.5 - [facility] 48.5 % [facility] MCV 90.2 82.9 - [facility] 93.1 [facility] LABOR[facility] MCH 28.9 27.5 - [facility] 32.1 pg [facility] MCHC 32.0 32.0 - [facility] 35.7 gm/dL [facility] Platelets 282 145 - [address] [facility] x10(3)/[facility] LABORATORY RDWSD 53.9 (H) 36.0 - [facility] 45.0 [facility] LABORATORY RDWCV 16.5 (H) 11.4 - [facility] 13.8 % [facility] MPV 9.0 7.6 - 12.9 [facility] LABORATORY nRBC % Auto 0.0 % [facility] LABOR[facility]ORY nRBC Abs Auto 0.000 0.000 - [facility] 0.000 [facility] x10(3)/[facility] LABORATORY Specimen Anatomical Collection Method Collection Time Receive d Time (Source) Location / / Volume Laterality Blood specimen 08/16/2017 5:08 AM 018 5:20 (specimen) EST AM EST Resulting Agency Comment Spec In Lab Yonathan Smith MD HEMATOLOGY ORDERABLES Performing Organization Address City/State/[place] [address] (ABNORMAL) Basic Metabolic Panel (non-fasting) (08/16/2017 5:08 AM EST) athologist Signature Glucose Lvl 141 65 - 199 [facility] mg/dL [facility] Comment: Diabetes: >=200 mg/dL plus symp toms BUN 29 (H) 10 - 20 mg/dL [facility] LABORATORY Creatinine 1.25 0.80 - [...] 15 mmol/L [facility] LABORATORY Calcium 8.7 8.5 - 10.5 mg/dL [facility] LABORATORY Estimated GFR 57 (L) >=60 [facility] Comment: The reported eGFR should be multiplied b y 1.2 for patients. The MDRD is not an appropriate measure o f renal function for patients with body mass extremes or in patients with acute kidney failure. http://[email or web address] http://[email or web address] Specimen Anatomical Collection Method Collection Time Receive d Time (Source) Location / / Volume Laterality Blood specimen 08/16/2017 5:08 AM 018 5:20 (specimen) EST AM EST Resulting Agency Comment Spec In Lab Yonathan Smith MD CHEMISTRY ORDERABLES Performing Organization Address City/State/ZIP Code Phon e Number [place] [id number] LAB[address]ORY [address] (ABNORMAL) Prothrombin Time (08/16/2017 5:08 AM EST) athologist Signature PT 25.2 (H) 11.8 - 14.0 [facility] LABORATORY INR 2.3 (H) 0.9 [...] Smith MD HEMATOLOGY ORDERABLES Performing Organization Address City/[facility]/ZIP Code Phon e Number [address] POCT Glucose (08/16/2017 4:09 AM EST) athologist Signature POC Glucose 147 65 - 199 [place] mg/dL [facility] LABORATORY Comment: Supplemental ranges: <140 mg/dL before meals <180 mg/dL all other times of the day Specimen Anatomical Collection Method Collection Time Receive d Time (Source) Location / / Volume Laterality Blood specimen 08/16/2017 4:09 AM 018 4:09 (specimen) EST AM EST Yonathan Smith MD POINT OF CARE TEST ORDERABLE S Performing Organization Address City/[facility]/ZIP Code Phon e Number [address] POCT Glucose (08/15/2017 11:56 PM EST) athologist Signature POC Glucose 176 65 - 199 [place] mg/dL [facility] LABORATORY Comment: Supplemental ranges: <140 mg/dL before meals <180 mg/dL all other times of the day Specimen Anatomical Collection Method Collection Time Receive d Time (Source) Location / / Volume Laterality Blood specimen 08/15/2017 11:56 8 (specimen) PM EST 11:56 PM EST Yonathan Smith MD POINT OF CARE TEST ORDERABLE S Performing Organization Address City/[facility]/ZIP Code Phon e Number [address] POCT Glucose (08/15/2017 8:05 PM EST) athologist Signature POC Glucose 136 65 - 199 [facility] SU mg/dL [facility] LABORATORY Comment: Supplemental ranges: <140 mg/dL before meals <180 mg/dL all other times of the day Specimen Anatomical Collection Method Collection Time Receive d Time (Source) Location / / Volume Laterality Blood specimen 08/15/2017 8:05 PM 018 8:05 (specimen) EST PM EST Yonathan Smith MD POINT OF CARE TEST ORDERABLE S Performing Organization Address City/State/[place] [address] (ABNORMAL) POCT Glucose (08/15/2017 4:50 PM EST) athologist Signature POC Glucose 232 (H) 65 - 199 [place] mg/dL [facility] LABORATORY Comment: Supplemental ranges: <140 mg/dL before meals <180 mg/dL all other times of the day Specimen Anatomical Collection Method Collection Time Receive d Time (Source) Location / / Volume Laterality Blood specimen 08/15/2017 4:50 PM 018 4:50 (specimen) EST PM EST Yonathan Smith MD POINT OF CARE TEST ORDERABLE S Performing Organization Address City/State/[place] [address] POCT Glucose (08/15/2017 12:04 PM EST) athologist Signature POC Glucose 135 65 - 199 [place] mg/dL [facility] LABORATORY Comment: Supplemental ranges: <140 mg/dL before meals <180 mg/dL all other times of the day Specimen Anatomical Collection Method Collection Time Receive d Time (Source) Location / / Volume Laterality Blood specimen 08/15/2017 12:04 8 (specimen) PM EST 12:04 PM EST Yonathan Smith MD POINT OF CARE TEST ORDERABLE S Performing Organization Address City/State/[place] [address] POCT Glucose (08/15/2017 7:36 AM EST) athologist Signature POC Glucose 124 65 - 199 [place] mg/dL [facility] LABORATORY Comment: Supplemental ranges: <140 mg/dL before meals <180 mg/dL all other times of the day Specimen Anatomical Collection Method Collection Time Receive d Time (Source) Location / / Volume Laterality Blood specimen 08/15/2017 7:36 AM 018 7:36 (specimen) EST AM EST Yonathan Smith MD POINT OF CARE TEST ORDERABLE S Performing Organization Address City/State/ZIP Code Phon e Number [place] [id number] [facility] LABORATORY Drive (ABNORMAL) Differential, Automated (08/15/2017 6:22 AM EST) [facility] Method Time Signature Neutrophils % 76.1 % [facility] LABORATORY Neutr Abs (ANC) 6.62 (H) 1.70 - [facility] 6.10 [facility] x10(3)/[facility] L LABORATORY Lymphocytes % 9.3 % [facility] LABORATORY Lymphocytes Abs 0.8 (L) 0.9 - 3.[address] [facility] x10(3)/[facility] LABORATORY Monocytes % 9.4 % [facility] LABORATORY Monocyte Abs 0.8 0.3 - 0.[address] [facility] x10(3)/[facility] LABORATORY Eosinophils % 4.0 % [facility] LABORATORY Eosinophils Abs 0.4 0.0 - 0.[address] [facility] x10(3)/[facility] LABORATORY Basophils % 0.6 % [facility] LABORATORY Basophils Abs 0.0 0.0 - 0.[address] [facility] x10(3)/[facility] LABORATORY Immature Gran % [...] 0.00 - 0.04 x10(3)/[facility] LABORATORY Specimen Anatomical Collection Method Collection Time Receive d Time (Source) Location / / Volume Laterality Blood specimen 08/15/2017 6:22 AM 018 6:33 (specimen) EST AM EST Resulting Agency Comment Spec In Lab Yonathan Smith MD HEMATOLOGY ORDERABLES Performing Organization Address City/State/[place] [address] (ABNORMAL) Hemogram (08/15/2017 6:22 AM EST) Analysis Performed At Patho logist Time Signature WBC 8.7 4.0 - 9.[address] [facility] x10(3)/[facility] LABORATORY RBC 3.21 (L) 4.58 - [place] 5.54 [facility] x10(6)/[facility] LABORATORY Hemoglobin 9.1 (L) 13.7 - [facility] 16.5 gm/dL [facility] LABORATORY Hematocrit 29.0 (L) 40.5 - [facility] 48.5 % [facility] LABORATORY MCV 90.3 82.9 - [facility] 93.1 [facility] LABORATORY MCH 28.3 27.5 - [facility] 32.1 pg [facility] LABORATORY MCHC 31.4 (L) 32.0 - [facility] 35.7 gm/dL [facility] LABORATORY Platelets 254 145 - [address] [facility] x10(3)/[facility] LABORATORY RDWSD 53.9 (H) 36.0 - [facility] 45.0 [facility] LABORATORY RDWCV 16.3 (H) 11.4 - [facility] 13.8 % [facility] LABORATORY MPV 8.8 7.6 - 12.9 [facility] LABORATORY nRBC % Auto 0.0 % [facility] LABORATORY nRBC Abs Auto 0.000 0.000 - [facility] 0.000 [facility] x10(3)/[facility] LABORATORY Specimen Anatomical Collection Method Collection Time Receive d Time (Source) Location / / Volume Laterality Blood specimen 08/15/2017 6:22 AM 018 6:33 (specimen) EST AM EST Resulting Agency Comment Spec In Lab Yonathan Smith MD HEMATOLOGY ORDERABLES Performing Organization Address City/State/[place] [address] (ABNORMAL) Basic Metabolic Panel (non-fasting) (08/15/2017 6:22 AM EST) P athologist Signature Glucose Lvl 118 65 - [address] [facility] mg/dL [facility] LABORATORY Comment: Diabetes: [...] [facility]OR[facility] Estimated GFR >60 >=60 [facility] Comment: The reported eGFR should be multiplied b y 1.2 for patients. The MDRD is not an appropriate measure o f renal function for patients with body mass extremes or in patients with acute kidney failure. http://[email or web address] http://[email or web address] Specimen Anatomical Collection Method Collection Time Receive d Time (Source) Location / / Volume Laterality Blood specimen 08/15/2017 6:22 AM 018 6:33 (specimen) EST AM EST Resulting Agency Comment Spec In Lab Yonathan Smith MD CHEMISTRY ORDERABLES Performing Organization Address City/State/[place] [address] (ABNORMAL) Prothrombin Time (08/15/2017 6:22 AM EST) athologist Signature PT 21.9 (H) 11.8 - 14.0 [facility] LABORATORY INR 1.9 (H) 0.9 [...] Smith MD HEMATOLOGY ORDERABLES Performing Organization Address City/[facility]/ZIP Code Phon e Number [address] POCT Glucose (08/15/2017 4:33 AM EST) athologist Signature POC Glucose 164 65 - 199 [facility] mg/dL [facility] LABORATORY Comment: Supplemental ranges: <140 mg/dL before meals <180 mg/dL all other times of the day Specimen Anatomical Collection Method Collection Time Receive d Time (Source) Location / / Volume Laterality Blood specimen 08/15/2017 4:33 AM 018 4:33 (specimen) EST AM EST Yonathan Smith MD POINT OF CARE TEST ORDERABLE S Performing Organization Address City/[facility]/ZIP Code Phon e Number [address] POCT Glucose (08/15/2017 12:12 AM EST) athologist Signature POC Glucose 89 65 - 199 [facility] mg/dL [facility] LABORATORY Comment: Supplemental ranges: <140 mg/dL before meals <180 mg/dL all other times of the day Specimen Anatomical Collection Method Collection Time Receive d Time (Source) Location / / Volume Laterality Blood specimen 08/15/2017 12:12 8 (specimen) AM EST 12:12 AM EST Yonathan Smith MD POINT OF CARE TEST ORDERABLE S Performing Organization Address City/[facility]/[place] [address] (ABNORMAL) POCT Glucose (08/14/2017 8:07 PM EST) athologist Signature POC Glucose 204 (H) 65 - 199 [place] mg/dL [facility] LABORATORY Comment: Supplemental ranges: <140 mg/dL before meals <180 mg/dL all other times of the day Specimen Anatomical Collection Method Collection Time Receive d Time (Source) Location / / Volume Laterality Blood specimen 08/14/2017 8:07 PM 018 8:07 (specimen) EST PM EST Yonathan Smith MD POINT OF CARE TEST ORDERABLE S Performing Organization Address City/State/[place] [address] POCT Glucose (08/14/2017 5:11 PM EST) athologist Signature POC Glucose 174 65 - 199 [facility] mg/dL [facility] LABORATORY Comment: Supplemental ranges: <140 mg/dL before meals <180 mg/dL all other times of the day Specimen Anatomical Collection Method Collection Time Receive d Time (Source) Location / / Volume Laterality Blood specimen 08/14/2017 5:11 PM 018 5:11 (specimen) EST PM EST Yonathan Smith MD POINT OF CARE TEST ORDERABLE S Performing Organization Address City/State/[place] [address] POCT Glucose (08/14/2017 12:10 PM EST) athologist Signature POC Glucose 141 65 - 199 [place] mg/dL [facility] LABORATORY Comment: Supplemental ranges: <140 mg/dL before meals <180 mg/dL all other times of the day Specimen Anatomical Collection Method Collection Time Receive d Time (Source) Location / / Volume Laterality Blood specimen 08/14/2017 12:10 8 (specimen) PM EST 12:10 PM EST Yonathan Smith MD POINT OF CARE TEST ORDERABLE S Performing Organization Address City/State/ZIP Code Phon e Number [address] POCT Glucose (08/14/2017 8:07 AM EST) P athologist Signature POC Glucose 158 65 - [address] [facility] mg/dL [facility] LABORATORY Comment: Supplemental ranges: <140 mg/dL before meals <180 mg/dL all other times of the day Specimen Anatomical Collection Method Collection Time Receive d Time (Source) Location / / Volume Laterality Blood specimen 08/14/2017 8:07 AM 018 8:07 (specimen) EST AM EST Yonathan Smith MD POINT OF CARE TEST ORDERABLE S Performing Organization Address City/State/[place] [address] (ABNORMAL) Differential, Automated (08/14/2017 4:52 AM EST) Patholo gist Method Time Signature Neutrophils % 78.6 % [facility] LABORATORY Neutr Abs (ANC) 7.70 (H) 1.70 - [facility] 6.10 [facility] x10(3)/[facility] LABORATORY Lymphocytes % 7.8 % [facility] LABORATORY Lymphocytes Abs 0.8 (L) 0.9 - 3.[address] [facility] x10(3)/[facility] LABORATORY Monocytes % 8.8 % [facility] LABORATORY Monocyte Abs 0.9 0.3 - 0.[address] [facility] x10(3)/[facility] LABORATORY Eosinophils % 4.0 % [facility] LABORATORY Eosinophils Abs 0.4 0.0 - 0.[address] [facility] x10(3)/[facility] LABORATORY Basophils % 0.5 % [facility] LABORATORY Basophils Abs 0.0 0.0 - 0.[address] [facility] x10(3)/[facility] LABORATORY Immature Gran % 0.30 [...] Melisa Gran Abs 0.03 0.00 - 0.04 x10(3)/[facility] MAR Y [facility] LABORATORY Specimen Anatomical Collection Method Collection Time Receive d Time (Source) Location / / Volume Laterality Blood specimen 08/14/2017 4:52 AM 018 5:08 (specimen) EST AM EST Resulting Agency Comment Spec In Lab Yonathan Smith MD HEMATOLOGY ORDERABLES Performing Organization Address City/State/[place] [address] (ABNORMAL) Hemogram (08/14/2017 4:52 AM EST) Analysis Performed At Patho logist Time Signature WBC 9.8 (H) 4.0 - 9.5 [facility] x[facility](3[facility] LABORATORY RBC 3.32 (L) 4.58 - [facility] 5.54 [facility] x10(6)/[facility] LABORATORY Hemoglobin 9.5 (L) 13.7 - [facility] 16.5 gm/dL [facility] LABORATORY Hematocrit 30.3 (L) 40.5 - [facility] 48.5 % [facility] LABORATORY MCV 91.3 82.9 - [facility] 93.1 [facility] LABORATORY MCH 28.6 27.5 - [facility] 32.1 pg [facility] LABORATORY MCHC 31.4 (L) 32.0 - [facility] 35.7 gm/dL [facility] LABORATORY Platelets 263 145 - [address] [facility] x10(3)/[facility] RDWSD 54.8 (H) 36.0 - [facility] 45.0 [facility] LABORATORY RDWCV 16.5 (H) 11.4 - [facility] SU 13.8 % [facility] LABORATORY MPV 9.1 7.6 - 12.9 [facility] nRBC % Auto 0.0 % [facility] LABORATORY nRBC Abs Auto 0.000 0.000 - [facility] SU 0.000 [facility] x10(3)/[facility] LABORATORY Specimen Anatomical Collection Method Collection Time Receive d Time (Source) Location / / Volume Laterality Blood specimen 08/14/2017 4:52 AM 018 5:08 (specimen) EST AM EST Resulting Agency Comment Spec In Lab Yonathan Smith MD HEMATOLOGY ORDERABLES Performing Organization Address City/[facility]/ZIP Code Phon e Number [place] [id number]OS[address] LAB[address]ORY Drive (ABNORMAL) Prothrombin Time (08/14/2017 4:52 AM EST) athologist Signature PT 18.8 (H) 11.8 - 14.0 [facility] LABORATORY INR 1.6 (H) 0.9 [...] Smith MD HEMATOLOGY ORDERABLES Performing Organization Address City/[facility]/[place] [address] (ABNORMAL) Basic Metabolic Panel (non-fasting) (08/14/2017 4:52 AM EST) athologist Signature Glucose Lvl 135 65 - [address] [facility] mg/dL [facility] LABORATORY Comment: Diabetes: >=200 mg/dL plus symp toms BUN 25 (H) 10 - 20 mg/dL [facility] LABORATORY Creatinine 1.36 0.80 - [...] HOSPITAL LABORATORY Estimated GFR 52 (L) >=60 [facility] LABORATORY Comment: The reported eGFR should be multiplied b y 1.2 for patients. The MDRD is not an appropriate measure o f renal function for patients with body mass extremes or in patients with acute kidney failure. http://[employer]/DHnkdep http://[employer]/DHnkf Specimen Anatomical Collection Method Collection Time Receive d Time (Source) Location / / Volume Laterality Blood specimen 08/14/2017 4:52 AM 018 5:08 (specimen) EST AM EST Resulting Agency Comment Spec In Lab Yonathan Smith MD CHEMISTRY ORDERABLES Performing Organization Address City/[facility]/ZIP Code Phon e Number [address] POCT Glucose (08/14/2017 3:56 AM EST) athologist Signature POC Glucose 135 65 - [address] [facility] mg/dL [facility] LABORATORY Comment: Supplemental ranges: <140 mg/dL before meals <180 mg/dL all other times of the day Specimen Anatomical Collection Method Collection Time Receive d Time (Source) Location / / Volume Laterality Blood specimen 08/14/2017 3:56 AM 018 3:56 (specimen) EST AM EST Yonathan Smith MD POINT OF CARE TEST ORDERABLE S Performing Organization Address City/[facility]/ZIP [facility] Phon e Number [address] POCT Glucose (08/13/2017 11:13 PM EST) athologist Signature POC Glucose 118 65 - 199 [facility] mg/dL [facility] LABORATORY Comment: Supplemental ranges: <140 mg/dL before meals <180 mg/dL all other times of the day Specimen Anatomical Collection Method Collection Time Receive d Time (Source) Location / / Volume Laterality Blood specimen 08/13/2017 11:13 8 (specimen) PM EST 11:13 PM EST Yonathan Smith MD POINT OF CARE TEST ORDERABLE S Performing Organization Address City/[facility]/[place] [address] (ABNORMAL) POCT Glucose (08/13/2017 8:08 PM EST) athologist Signature POC Glucose 204 (H) 65 - 199 [place] mg/dL [facility] LABORATORY Comment: Supplemental ranges: <140 mg/dL before meals <180 mg/dL all other times of the day Specimen Anatomical Collection Method Collection Time Receive d Time (Source) Location / / Volume Laterality Blood specimen 08/13/2017 8:08 PM 018 8:08 (specimen) EST PM EST Yonathan Smith MD POINT OF CARE TEST ORDERABLE S Performing Organization Address City/State/[place] [address] POCT Glucose (08/13/2017 4:02 PM EST) athologist Signature POC Glucose 145 65 - 199 [place] mg/dL [facility] LABORATORY Comment: Supplemental ranges: <140 mg/dL before meals <180 mg/dL all other times of the day Specimen Anatomical Collection Method Collection Time Receive d Time (Source) Location / / Volume Laterality Blood specimen 08/13/2017 4:02 PM 018 4:02 (specimen) EST PM EST Yonathan Smith MD POINT OF CARE TEST ORDERABLE S Performing Organization Address City/State/[place] [address] POCT Glucose (08/13/2017 11:31 AM EST) athologist Signature POC Glucose 179 65 - 199 [place] mg/dL [facility] LABORATORY Comment: Supplemental ranges: <140 mg/dL before meals <180 mg/dL all other times of the day Specimen Anatomical Collection Method Collection Time Receive d Time (Source) Location / / Volume Laterality Blood specimen 08/13/2017 11:31 8 (specimen) AM EST 11:31 AM EST Yonathan Smith MD POINT OF CARE TEST ORDERABLE S Performing Organization Address City/State/ZIP Code Phon e Number [address] (ABNORMAL) POCT Glucose (08/13/2017 10:16 AM EST) P athologist Signature POC Glucose 211 (H) 65 - 199 [facility] mg/dL [facility] LABORATORY Comment: Supplemental ranges: <140 mg/dL before meals <180 mg/dL all other times of the day Specimen Anatomical Collection Method Collection Time Receive d Time (Source) Location / / Volume Laterality Blood specimen 08/13/2017 10:16 8 (specimen) AM EST 10:16 AM EST Yonathan Smith MD POINT OF CARE TEST ORDERABLE S Performing Organization Address City/State/[place] [address] JULIAN, legs, multiple levels (08/13/2017 7:42 AM EST) Component Value Ref Test Analysis Performed At Patholo gist Range Method Time Signature VB Text Department: Vascular Surgery Lab VASCUBASE Report Patient: [id number] (GREGORY HOANG) CPT: 81432 ICD10: I99.8 Referring Physician: YONATHAN SMITH ?? Indications: s/p R 1,2,3 toe amps with red left foot, need n ew baseline Diabetes mellitus: yes ICD10 Diagnosis Code: I99.8 Findings: Right ?Pressure (mm Hg) ?? JULIAN ??Waveform ?TBI ?? Brachial Artery ?138 ? Dorsalis Pedis (Ankle) Arter y ?132 ? 0.94 ??[place]- Biphasic ? Posterior Tibial (Ankle) Art anila ??154 ? 1.10 ??[place]-Biphasic ? Fourth Toe ? 67 ? 0.48 [...] Glucose 156 65 - [address] [facility] mg/dL [facility] LABORATORY Comment: Supplemental ranges: <140 mg/dL before meals <180 mg/dL all other times of the day Specimen Anatomical Collection Method Collection Time Receive d Time (Source) Location / / Volume Laterality Blood specimen 08/13/2017 7:33 AM 018 7:33 (specimen) EST AM EST Yonathan Smith MD POINT OF CARE TEST ORDERABLE S Performing Organization Address City/State/[place] [address] (ABNORMAL) Differential, Automated (08/13/2017 5:33 AM EST) Patholo gist Method Time Signature Neutrophils % 77.8 % [facility] LABORATORY Neutr Abs (ANC) 7.83 (H) 1.70 - [facility] 6.10 [facility] x10(3)/[facility] LABORATORY Lymphocytes % 8.4 % [facility] LABORATORY Lymphocytes Abs 0.8 (L) 0.9 - 3.[address] [facility] x10(3)/[facility] LABORATORY Monocytes % 8.3 % [facility] LABORATORY Monocyte Abs 0.8 0.3 - 0.[address] [facility] x10(3)/[facility] LABORATORY Eosinophils % 4.6 % [facility] LABORATORY Eosinophils Abs 0.5 (H) 0.0 - 0.[address] [facility] x10(3)/[facility] LABORATORY Basophils % 0.5 % [facility] LABORATORY Basophils Abs 0.0 0.0 - 0.[address] [facility] x10(3)/[facility] LABORATORY Immature Gran % 0.40 [...] Melisa Gran Abs 0.04 0.00 - 0.04 x10(3)/[facility] MAR Y [facility] LABORATORY Specimen Anatomical Collection Method Collection Time Receive d Time (Source) Location / / Volume Laterality Blood specimen 08/13/2017 5:33 AM 018 6:04 (specimen) EST AM EST Resulting Agency Comment Spec In Lab Yonathan Smith MD HEMATOLOGY ORDERABLES Performing Organization Address City/State/[place] [address] (ABNORMAL) Hemogram (08/13/2017 5:33 AM EST) Analysis Performed At Patho logist Time Signature WBC 10.1 (H) 4.0 - 9.[address] [facility] x10(3)/[facility] LABORATORY RBC 3.21 (L) 4.58 - [facility] 5.54 [facility] [facility] x10(6)/[facility] LABORATORY Hemoglobin 9.2 (L) 13.7 - [place] [facility] 16.5 gm/dL [facility] LABORATORY Hematocrit 29.6 (L) 40.5 - [place] 48.5 % [facility] LABORATORY MCV 92.2 82.9 - [facility] 93.1 [facility] LABORATORY MCH 28.7 27.5 - [place] 32.1 pg [facility] LABORATORY MCHC 31.1 (L) 32.0 - [place] 35.7 gm/dL [facility] LABORATORY Platelets 263 145 - [address] [facility] x10(3)/[facility] LABORATORY RDWSD 54.8 (H) 36.0 - [place] 45.0 [facility] LABORATORY RDWCV 16.4 (H) 11.4 - [facility] SU 13.8 % [facility] LABORATORY MPV 9.2 7.6 - 12.9 [facility] LABORATORY nRBC % Auto 0.0 % [facility] LABORATORY nRBC Abs Auto 0.000 0.000 - [place] [facility] 0.000 [facility] x10(3)/[facility] LABORATORY Specimen Anatomical Collection Method Collection Time Receive d Time (Source) Location / / Volume Laterality Blood specimen 08/13/2017 5:33 AM 018 6:04 (specimen) EST AM EST Resulting Agency Comment Spec In Lab Yonathan Smith MD HEMATOLOGY ORDERABLES Performing Organization Address City/State/[place] [address] (ABNORMAL) Prothrombin Time (08/13/2017 5:33 AM EST) P athologist Signature PT 17.3 (H) 11.8 - 14.0 [facility] LABORATORY INR 1.4 (H) 0.9 [...] Organization Address City/State/[place] [address] (ABNORMAL) Basic Metabolic Panel (non-fasting) (08/13/2017 5:33 AM EST) athologist Signature Glucose Lvl 126 65 - [address] [facility] mg/dL [facility] LABORATORY Comment: Diabetes: >=200 mg/dL plus symp toms BUN 18 10 - 20 mg/dL [facility] LABORATORY Creatinine 1.16 0.80 - [...] 15 mmol/L [facility] LABORATORY Calcium 7.9 (L) 8.5 - 10.5 mg/dL [facility] LABORATORY Estimated GFR >60 >=60 [facility] LABORATORY Comment: The reported eGFR should be multiplied b y 1.2 for patients. The MDRD is not an appropriate measure o f renal function for patients with body mass extremes or in patients with acute kidney failure. [email or web address] [email or web address] Specimen Anatomical Collection Method Collection Time Receive d Time (Source) Location / / Volume Laterality Blood specimen 08/13/2017 5:33 AM 018 6:04 (specimen) EST AM EST Resulting Agency Comment Spec In Lab Yonathan Smith MD CHEMISTRY ORDERABLES Performing Organization Address City/[facility]/ZIP Code Phon e Number [address] POCT Glucose (08/13/2017 4:29 AM EST) athologist Signature POC Glucose 111 65 - 199 [place] mg/dL [facility] LABORATORY Comment: Supplemental ranges: <140 mg/dL before meals <180 mg/dL all other times of the day Specimen Anatomical Collection Method Collection Time Receive d Time (Source) Location / / Volume Laterality Blood specimen 08/13/2017 4:29 AM 018 4:29 (specimen) EST AM EST Yonathan Smith MD POINT OF CARE TEST ORDERABLE S Performing Organization Address City/[facility]/ZIP [facility] Phon e Number [address] POCT Glucose (08/12/2017 11:28 PM EST) athologist Signature POC Glucose 164 65 - 199 [place] mg/dL [facility] LABORATORY Comment: Supplemental ranges: <140 mg/dL before meals <180 mg/dL all other times of the day Specimen Anatomical Collection Method Collection Time Receive d Time (Source) Location / / Volume Laterality Blood specimen 08/12/2017 11:28 8 (specimen) PM EST 11:28 PM EST Yonathan Smith MD POINT OF CARE TEST ORDERABLE S Performing Organization Address City/[facility]/ZIP Code Phon e Number [address] (ABNORMAL) POCT Glucose (08/12/2017 7:40 PM EST) athologist Signature POC Glucose 209 (H) 65 - 199 [facility] SU mg/dL [facility] LABORATORY Comment: Supplemental ranges: <140 mg/dL before meals <180 mg/dL all other times of the day Specimen Anatomical Collection Method Collection Time Receive d Time (Source) Location / / Volume Laterality Blood specimen 08/12/2017 7:40 PM 018 7:40 (specimen) EST PM EST Yonathan Smith MD POINT OF CARE TEST ORDERABLE S Performing Organization Address City/State/ZIP Code Phon e Number [address] POCT Glucose (08/12/2017 4:24 PM EST) athologist Signature POC Glucose 161 65 - 199 [place] mg/dL [facility] LABORATORY Comment: Supplemental ranges: <140 mg/dL before meals <180 mg/dL all other times of the day Specimen Anatomical Collection Method Collection Time Receive d Time (Source) Location / / Volume Laterality Blood specimen 08/12/2017 4:24 PM 018 4:24 (specimen) EST PM EST Yonathan Smith MD POINT OF CARE TEST ORDERABLE S Performing Organization Address City/State/ZIP Code Phon e Number [address] POCT Glucose (08/12/2017 12:00 PM EST) athologist Signature POC Glucose 167 65 - 199 [place] [facility] mg/dL [facility] LABORATORY Comment: Supplemental ranges: <140 mg/dL before meals <180 mg/dL all other times of the day Specimen Anatomical Collection Method Collection Time Receive d Time (Source) Location / / Volume Laterality Blood specimen 08/12/2017 12:00 8 (specimen) PM EST 12:00 PM EST Yonathan Smith MD POINT OF CARE TEST ORDERABLE S Performing Organization Address City/State/ZIP Code Phon e Number [address] POCT Glucose (08/12/2017 7:25 AM EST) athologist Signature POC Glucose 152 65 - 199 [place] [facility] mg/dL [facility] LABORATORY Comment: Supplemental ranges: <140 mg/dL before meals <180 mg/dL all other times of the day Specimen Anatomical Collection Method Collection Time Receive d Time (Source) Location / / Volume Laterality Blood specimen 08/12/2017 7:25 AM 018 7:25 (specimen) EST AM EST Yonatahn Smith MD POINT OF CARE TEST ORDERABLE S Performing Organization Address City/State/ZIP Code Phon e Number [place] [id number] HOSPITAL LABORATORY Drive (ABNORMAL) Differential, Automated (08/12/2017 6:29 AM EST) [facility] Method Time Signature Neutrophils % 78.7 % [facility] LABORATORY Neutr Abs (ANC) 7.94 (H) 1.70 - [facility] 6.10 [facility] x10(3)/[facility] LABORATORY Lymphocytes % 8.8 % [facility] LABORATORY Lymphocytes Abs 0.9 0.9 - 3.[address] [facility] x10(3)/[facility] LABORATORY Monocytes % 7.8 % [facility] LABORATORY Monocyte Abs 0.8 0.3 - 0.[address] [facility] x10(3)/[facility] LABORATORY Eosinophils % 3.9 % [facility] LABORATORY Eosinophils Abs 0.4 0.0 - 0.[address] [facility] x10(3)/[facility] LABORATORY Basophils % 0.3 % [facility] LABORATORY Basophils Abs 0.0 0.0 - 0.[address] [facility] x10(3)/[facility] LABORATORY Immature Gran % 0.50 [...] 0.00 - 0.04 x10(3)/[facility] LABORATORY Specimen Anatomical Collection Method Collection Time Receive d Time (Source) Location / / Volume Laterality Blood specimen 08/12/2017 6:29 AM 018 6:38 (specimen) EST AM EST Resulting Agency Comment Spec In Lab Yonathan Smith MD HEMATOLOGY ORDERABLES Performing Organization Address City/State/ZIP Code Phon e Number [place] [id number] HOSPITAL LABORATORY Drive (ABNORMAL) Hemogram (08/12/2017 6:29 AM EST) Analysis Performed At Patho logist Time Signature WBC 10.1 (H) 4.0 - 9.[address] [facility] x10(3)/[facility] LABORATORY RBC 3.02 (L) 4.58 - [place] [facility] 5.54 [facility] x10(6)/[facility] LABORATORY Hemoglobin 8.7 (L) 13.7 - [facility] 16.5 gm/dL [facility] LABORATORY Hematocrit 28.1 (L) 40.5 - [facility] 48.5 % [facility] LABORATORY MCV 93.0 82.9 - [facility] 93.1 [facility] LABORATORY MCH 28.8 27.5 - [facility] 32.1 pg [facility] LABORATORY MCHC 31.0 (L) 32.0 - [facility] 35.7 gm/dL [facility] LABORATORY Platelets 223 145 - [address] [facility] x10(3)/[facility] LABORATORY RDWSD 56.1 (H) 36.0 - [facility] 45.0 [facility] LABORATORY RDWCV 16.4 (H) 11.4 - [facility] 13.8 % [facility] LABORATORY MPV 9.0 7.6 - 12.9 [facility] LABORATORY nRBC % Auto 0.0 % [facility] LABORATORY nRBC Abs Auto 0.000 0.000 - [facility] 0.000 [facility] x10(3)/[facility] LABORATORY Specimen Anatomical Collection Method Collection Time Receive d Time (Source) Location / / Volume Laterality Blood specimen 08/12/2017 6:29 AM 018 6:38 (specimen) EST AM EST Resulting Agency Comment Spec In Lab Yonathan Smith MD HEMATOLOGY ORDERABLES Performing Organization Address City/State/ZIP [place] [address] (ABNORMAL) Prothrombin Time (08/12/2017 6:29 AM EST) P athologist Signature PT 16.1 (H) 11.8 - 14.0 [facility] LABORATORY INR 1.3 (H) 0.9 [...] Organization Address City/State/[place] [address] (ABNORMAL) Basic Metabolic Panel (non-fasting) (08/12/2017 6:29 AM EST) P athologist Signature Glucose Lvl 151 65 - [address] [facility] mg/dL [facility] LABORATORY Comment: Diabetes: >=200 mg/dL plus symp toms BUN 18 10 - 20 mg/dL [facility] LABORATORY Creatinine 1.11 0.80 - [...] 15 mmol/L [facility] LABORATORY Calcium 7.9 (L) 8.5 - 10.5 mg/dL [facility] LABORATORY Estimated GFR >60 >=60 [facility] LABORATORY Comment: The reported eGFR should be multiplied b y 1.2 for patients. The MDRD is not an appropriate measure o f renal function for patients with body mass extremes or in patients with acute kidney failure. http://[email or web address] http://[email or web address] Specimen Anatomical Collection Method Collection Time Receive d Time (Source) Location / / Volume Laterality Blood specimen 08/12/2017 6:29 AM 018 6:38 (specimen) EST AM EST Resulting Agency Comment Spec In Lab Yonathan Smith MD CHEMISTRY ORDERABLES Performing Organization Address City/[facility]/[place] [address] POCT Glucose (08/12/2017 4:08 AM EST) athologist Signature POC Glucose 181 65 - 199 [facility] LABORATORY Comment: Supplemental ranges: <140 mg/dL before meals <180 mg/dL all other times of the day Specimen Anatomical Collection Method Collection Time Receive d Time (Source) Location / / Volume Laterality Blood specimen 08/12/2017 4:08 AM 018 4:08 (specimen) EST AM EST Yonathan Smith MD POINT OF CARE TEST ORDERABLE S Performing Organization Address City/[facility]/[place] [address] (ABNORMAL) POCT Glucose (08/12/2017 12:17 AM EST) athologist Signature POC Glucose 221 (H) 65 - 199 [facility] mg/dL [facility] LABORATORY Comment: Supplemental ranges: <140 mg/dL before meals <180 mg/dL all other times of the day Specimen Anatomical Collection Method Collection Time Receive d Time (Source) Location / / Volume Laterality Blood specimen 08/12/2017 12:17 8 (specimen) AM EST 12:17 AM EST Yonathan Smith MD POINT OF CARE TEST ORDERABLE S Performing Organization Address City/[facility]/[place] [address] (ABNORMAL) POCT Glucose (08/11/2017 8:52 PM EST) athologist Signature POC Glucose 221 (H) 65 - 199 [place] [facility] mg/dL [facility] LABORATORY Comment: Supplemental ranges: <140 mg/dL before meals <180 mg/dL all other times of the day Specimen Anatomical Collection Method Collection Time Receive d Time (Source) Location / / Volume Laterality Blood specimen 08/11/2017 8:52 PM 018 8:52 (specimen) EST PM EST Yonathan Smith MD POINT OF CARE TEST ORDERABLE S Performing Organization Address City/State/[place] [address] POCT Glucose (08/11/2017 5:59 PM EST) athologist Signature POC Glucose 169 65 - 199 [facility] mg/dL [facility] LABORATORY Comment: Supplemental ranges: <140 mg/dL before meals <180 mg/dL all other times of the day Specimen Anatomical Collection Method Collection Time Receive d Time (Source) Location / / Volume Laterality Blood specimen 08/11/2017 5:59 PM 018 5:59 (specimen) EST PM EST Yonathan Smith MD POINT OF CARE TEST ORDERABLE S Performing Organization Address City/[facility]/[place] [address] (ABNORMAL) POCT Glucose (08/11/2017 4:08 PM EST) athologist Signature POC Glucose 240 (H) 65 - 199 [facility] LABORATORY Comment: Supplemental ranges: <140 mg/dL before meals <180 mg/dL all other times of the day Specimen Anatomical Collection Method Collection Time Receive d Time (Source) Location / / Volume Laterality Blood specimen 08/11/2017 4:08 PM 018 4:08 (specimen) EST PM EST Yonathan Smith MD POINT OF CARE TEST ORDERABLE S Performing Organization Address City/State/[place] [address] POCT Glucose (08/11/2017 12:04 PM EST) athologist Signature POC Glucose 182 65 - 199 [facility] mg/dL [facility] LABORATORY Comment: Supplemental ranges: <140 mg/dL before meals <180 mg/dL all other times of the day Specimen Anatomical Collection Method Collection Time Receive d Time (Source) Location / / Volume Laterality Blood specimen 08/11/2017 12:04 8 (specimen) PM EST 12:04 PM EST Yonathan Smith MD POINT OF CARE TEST ORDERABLE S Performing Organization Address City/State/ZIP Code Phon e Number [address] POCT Glucose (08/11/2017 7:31 AM EST) athologist Signature POC Glucose 156 65 - 199 [facility] mg/dL [facility] LABORATORY Comment: Supplemental ranges: <140 mg/dL before meals <180 mg/dL all other times of the day Specimen Anatomical Collection Method Collection Time Receive d Time (Source) Location / / Volume Laterality Blood specimen 08/11/2017 7:31 AM 018 7:31 (specimen) EST AM EST Yonathan Smith MD POINT OF CARE TEST ORDERABLE S Performing Organization Address City/State/ZIP Code Phon e Number [address] (ABNORMAL) Differential, Automated (08/11/2017 6:16 AM EST) [facility] gist Method Time Signature Neutrophils % 83.7 % [facility] LABORATORY Neutr Abs (ANC) 10.76 (H) 1.70 - [facility] 6.10 [facility] x10(3)/[facility] LABORATORY Lymphocytes % 6.0 % [facility] LABORATORY Lymphocytes Abs 0.8 (L) 0.9 - 3.[address] [facility] x10(3)/[facility] LABORATORY Monocytes % 7.5 % [facility] LABORATORY Monocyte Abs 1.0 (H) 0.3 - 0.[address] [facility] x10(3)/[facility] LABORATORY Eosinophils % 2.0 % [facility] LABORATORY Eosinophils Abs 0.3 0.0 - 0.[address] [facility] x10(3)/[facility] LABORATORY Basophils % 0.3 % [facility] LABORATORY Basophils Abs 0.0 0.0 - 0.[address] [facility] x10(3)/[facility] LABORATORY Immature Gran % 0.50 [...] 0.00 - 0.04 x10(3)/[facility] LABORATORY Specimen Anatomical Collection Method Collection Time Receive d Time (Source) Location / / Volume Laterality Blood specimen 08/11/2017 6:16 AM 018 6:24 (specimen) EST AM EST Resulting Agency Comment Spec In Lab Yonathan Smith MD HEMATOLOGY ORDERABLES Performing Organization Address City/State/[place] [address] (ABNORMAL) Hemogram (08/11/2017 6:16 AM EST) Analysis Performed At Patho logist Time Signature WBC 12.9 (H) 4.0 - 9.[address] [facility] x10(3)/[facility] LABORATORY RBC 3.28 (L) 4.58 - [facility] SU 5.54 [facility] x10(6)/[facility] LABORATORY Hemoglobin 9.5 (L) 13.7 - [facility] 16.5 gm/dL [facility] LABORATORY Hematocrit 29.8 (L) 40.5 - [facility] SU 48.5 % [facility] LABORATORY MCV 90.9 82.9 - [facility] 93.1 fL [facility] LABORATORY MCH 29.0 27.5 - [place] [facility] 32.1 pg [facility] LABORATORY MCHC 31.9 (L) 32.0 - [facility] 35.[facility] gm/dL [facility] LABORATORY Platelets 236 145 - [address] [facility] x10(3)/[facility] LABORATORY RDWSD 53.5 (H) 36.0 - [facility] SU 45.0 [facility] LABORATORY RDWCV 16.3 (H) 11.4 - [facility] 13.8 % [facility] LABORATORY MPV 8.8 7.6 - 12.9 [facility] LABORATORY nRBC % Auto 0.0 % [facility] LABORATORY nRBC Abs Auto 0.000 0.000 - [place] 0.000 [facility] x10(3)/[facility] LABORATORY Specimen Anatomical Collection Method Collection Time Receive d Time (Source) Location / / Volume Laterality Blood specimen 08/11/2017 6:16 AM 018 6:24 (specimen) EST AM EST Resulting Agency Comment Spec In Lab Yonathan Smith MD HEMATOLOGY ORDERABLES Performing Organization Address City/[facility] Phon e Number [address] (ABNORMAL) Prothrombin Time (08/11/2017 6:16 AM EST) P athologist Signature PT 15.5 (H) 11.8 - 14.0 [facility] LABORATORY INR 1.3 (H) 0.9 [...] Smith MD HEMATOLOGY ORDERABLES Performing Organization Address City/[facility] Phon e Number [address] Basic Metabolic Panel (non-fasting) (08/11/2017 6:16 AM EST) P athologist Signature Glucose Lvl 139 65 - [address] [facility] mg/dL [facility] LABORATORY Comment: Diabetes: >=200 mg/dL plus symp toms BUN 12 10 - 20 mg/dL [facility] LABORATORY Creatinine 0.91 0.80 - [...] [facility] LABORATORY Estimated GFR >60 >=60 [facility] LABORATORY Comment: The reported eGFR should be multiplied b y 1.2 for patients. The MDRD is not an appropriate measure o f renal function for patients with body mass extremes or in patients with acute kidney failure. http://[employer]/DHnkdep http://[employer]/DHMCnkf Specimen Anatomical Collection Method Collection Time Receive d Time (Source) Location / / Volume Laterality Blood specimen 08/11/2017 6:16 AM 018 6:24 (specimen) EST AM EST Resulting Agency Comment Spec In Lab Yonathan Smith MD CHEMISTRY ORDERABLES Performing Organization Address City/State/[place] [address] POCT Glucose (08/11/2017 4:07 AM EST) P athologist Signature POC Glucose 162 65 - [address] [facility] mg/dL [facility] LABORATORY Comment: Supplemental ranges: <140 mg/dL before meals <180 mg/dL all other times of the day Specimen Anatomical Collection Method Collection Time Receive d Time (Source) Location / / Volume Laterality Blood specimen 08/11/2017 4:07 AM 018 4:07 (specimen) EST AM EST Yonathan Smith MD POINT OF CARE TEST ORDERABLE S Performing Organization Address City/State/[place] [address] POCT Glucose (08/10/2017 11:59 PM EST) athologist Signature POC Glucose 166 65 - 199 [facility] mg/dL [facility] LABORATORY Comment: Supplemental ranges: <140 mg/dL before meals <180 mg/dL all other times of the day Specimen Anatomical Collection Method Collection Time Receive d Time (Source) Location / / Volume Laterality Blood specimen 08/10/2017 11:59 8 (specimen) PM EST 11:59 PM EST Yonathan Smith MD POINT OF CARE TEST ORDERABLE S Performing Organization Address City/State/[place] [address] POCT Glucose (08/10/2017 8:12 PM EST) athologist Signature POC Glucose 156 65 - 199 [facility] [facility] mg/dL [facility] LABORATORY Comment: Supplemental ranges: <140 mg/dL before meals <180 mg/dL all other times of the day Specimen Anatomical Collection Method Collection Time Receive d Time (Source) Location / / Volume Laterality Blood specimen 08/10/2017 8:12 PM 018 8:12 (specimen) EST PM EST Yonathan Smith MD POINT OF CARE TEST ORDERABLE S Performing Organization Address City/State/[place] [address] (ABNORMAL) POCT Glucose (08/10/2017 4:42 PM EST) athologist Signature POC Glucose 211 (H) 65 - 199 [facility] mg/dL [facility] LABORATORY Comment: Supplemental ranges: <140 mg/dL before meals <180 mg/dL all other times of the day Specimen Anatomical Collection Method Collection Time Receive d Time (Source) Location / / Volume Laterality Blood specimen 08/10/2017 4:42 PM 018 4:42 (specimen) EST PM EST Yonathan Smith MD POINT OF CARE TEST ORDERABLE S Performing Organization Address City/State/[place] [address] (ABNORMAL) Differential, Automated (08/10/2017 2:30 PM EST) [facility] Method Time Signature Neutrophils % 87.6 % [facility] LABORATORY Neutr Abs (ANC) 9.90 (H) 1.70 - [facility] 6.10 [facility] x10(3)/[facility] LABORATORY Lymphocytes % 4.3 % [facility] LABORATORY Lymphocytes Abs 0.5 (L) 0.9 - 3.[address] [facility] x10(3)/[facility] LABORATORY Monocytes % 6.0 % [facility] LABORATORY Monocyte Abs 0.7 0.3 - 0.[address] [facility] x10(3)/[facility] LABORATORY Eosinophils % 1.1 % [facility] LABORATORY Eosinophils Abs 0.1 0.0 - 0.[address] [facility] x10(3)/[facility] LABORATORY Basophils % 0.4 % [facility] LABORATORY Basophils Abs 0.0 0.0 - 0.[address] [facility] x10(3)/[facility] LABORATORY Immature Gran % [...] 0.00 - 0.04 x10(3)/[facility] LABORATORY Specimen Anatomical Collection Method Collection Time Receive d Time (Source) Location / / Volume Laterality Blood specimen 08/10/2017 2:30 PM 018 2:48 (specimen) EST PM EST Resulting Agency Comment Spec In Lab Yonathan Smith MD HEMATOLOGY ORDERABLES Performing Organization Address City/State/[place] [address] (ABNORMAL) Hemogram (08/10/2017 2:30 PM EST) Analysis Performed At Patho logist Time Signature WBC 11.3 (H) 4.0 - 9.5 [facility] [facility] LABORATORY RBC 3.13 (L) 4.58 - [place] SU 5.54 [facility] x10(6)/[facility] LABORATORY Hemoglobin 8.9 (L) 13.7 - [facility] 16.5 gm/dL [facility] LABORATORY Hematocrit 28.4 (L) 40.5 - [facility] 48.5 % [facility] LABORATORY MCV 90.7 82.9 - [facility] 93.1 [facility] LABORATORY MCH 28.4 27.5 - [facility] 32.1 pg [facility] LABORATORY MCHC 31.3 (L) 32.0 - [place] SU 35.7 gm/dL [facility] LABORATORY Platelets 213 145 - [address] [facility] x10(3)/[facility] LABORATORY RDWSD 53.7 (H) 36.0 - [facility] 45.0 [facility] LABORATORY RDWCV 16.4 (H) 11.4 - [facility] 13.8 % [facility] LABORATORY MPV 8.9 7.6 - 12.9 [facility] nRBC % Auto 0.0 % [facility] LABORATORY nRBC Abs Auto 0.000 0.000 - [facility] SU 0.000 [facility] x10(3)/[facility] LABORATORY Specimen Anatomical Collection Method Collection Time Receive d Time (Source) Location / / Volume Laterality Blood specimen 08/10/2017 2:30 PM 018 2:48 (specimen) EST PM EST Resulting Agency Comment Spec In Lab Yonathan Smith MD HEMATOLOGY ORDERABLES Performing Organization Address City/State/[place] [address] (ABNORMAL) POCT Glucose (08/10/2017 1:50 PM EST) athologist Signature POC Glucose 243 (H) 65 - 199 [facility] mg/dL [facility] LABORATORY Comment: Supplemental ranges: <140 mg/dL before meals <180 mg/dL all other times of the day Specimen Anatomical Collection Method Collection Time Receive d Time (Source) Location / / Volume Laterality Blood specimen 08/10/2017 1:50 PM 018 1:50 (specimen) EST PM EST Yonathan Smith MD POINT OF CARE TEST ORDERABLE S Performing Organization Address City/State/ZIP Code Phon e Number [address] POCT Glucose (08/10/2017 11:21 AM EST) athologist Signature POC Glucose 156 65 - 199 [facility] mg/dL [facility] LABORATORY Comment: Supplemental ranges: <140 mg/dL before meals <180 mg/dL all other times of the day Specimen Anatomical Collection Method Collection Time Receive d Time (Source) Location / / Volume Laterality Blood specimen 08/10/2017 11:21 8 (specimen) AM EST 11:21 AM EST Yonathan Smith MD POINT OF CARE TEST ORDERABLE S Performing Organization Address City/State/ZIP Code Phon e Number [address] (ABNORMAL) Differential, Automated (08/10/2017 10:28 AM EST) [facility] gist Method Time Signature Neutrophils % 85.3 % [facility] LABORATORY Neutr Abs (ANC) 9.43 (H) 1.70 - [facility] 6.10 [facility] x10(3)/[facility] LABORATORY Lymphocytes % 5.5 % [facility] LABORATORY Lymphocytes Abs 0.6 (L) 0.9 - 3.[address] [facility] x10(3)/[facility] LABORATORY Monocytes % 5.9 % [facility] LABORATORY Monocyte Abs 0.6 0.3 - 0.[address] [facility] x10(3)/[facility] LABORATORY Eosinophils % 2.1 % [facility] LABORATORY Eosinophils Abs 0.2 0.0 - 0.[address] [facility] x10(3)/[facility] LABORATORY Basophils % 0.4 % [facility] LABORATORY Basophils Abs 0.0 0.0 - 0.[address] [facility] x10(3)/[facility] LABORATORY Immature Gran % 0.80 [...] 0.00 - 0.04 x10(3)/[facility] LABORATORY Specimen Anatomical Collection Method Collection Time Receive d Time (Source) Location / / Volume Laterality Blood specimen 08/10/2017 10:28 8 (specimen) AM EST 10:35 AM EST Resulting Agency Comment Spec In Lab Yonathan Smith MD HEMATOLOGY ORDERABLES Performing Organization Address City/State/[place] [address] (ABNORMAL) Hemogram (08/10/2017 10:28 AM EST) Analysis Performed At Patho logist Time Signature WBC 11.0 (H) 4.0 - 9.[address] [facility] x10(3)/[facility] LABORATORY RBC 3.02 (L) 4.58 - [facility] SU 5.54 [facility] x10(6)/[facility] LABORATORY Hemoglobin 8.8 (L) 13.7 - [facility] 16.5 gm/dL [facility] LABORATORY Hematocrit 28.1 (L) 40.5 - [facility] SU 48.5 % [facility] LABORATORY MCV 93.0 82.9 - [facility] 93.1 fL [facility] LABORATORY MCH 29.1 27.5 - [place] [facility] 32.1 pg [facility] LABORATORY MCHC 31.3 (L) 32.0 - [facility] 35.7 gm/dL [facility] LABORATORY Platelets 207 145 - [address] [facility] x10(3)/[facility] LABORATORY RDWSD 55.3 (H) 36.0 - [place] DAVIS 45.0 [facility] RDWCV 16.4 (H) 11.4 - [place] DAVIS 13.8 % [facility] MPV 9.0 7.6 - 12.9 [place] DAVIS [facility] LABORATORY nRBC % Auto 0.0 % [facility] nRBC Abs Auto 0.000 0.000 - [place] DAVIS 0.000 [facility] x10(3)/[facility] LABORATORY Specimen Anatomical Collection Method Collection Time Receive d Time (Source) Location / / Volume Laterality Blood specimen 08/10/2017 10:28 8 (specimen) AM EST 10:35 AM EST Resulting Agency Comment Spec In Lab Yonathan Smith MD HEMATOLOGY ORDERABLES Performing Organization Address City/State/[place] [address] VS Angiogram/intervention (vascular) (08/10/2017 [...] 2.5x80 5. Completion RLE angiogram 6. L GUM WORKER angiogram 7. 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 L GUM WORKER access in the distal L GUM WORKER. - Closure device: Mynx Technical Procedure: ?The [...] for a 45cm 5F Destination. V18 and Independence a nd QuickCross catheters were used to [...] bifurcation. Access appeared in the distal R GUM WORKER. Closure and sheath removal was performed with [...] 2.5x80 5. Completion RLE angiogram 6. L GUM WORKER angiogram 7. 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 L GUM WORKER access in the distal L GUM WORKER. - Closure device: Mynx Technical Procedure: The [...] for a 45cm 5F Destination. V18 and Independence a nd QuickCross catheters were used to [...] bifurcation. Access appeared in the distal R GUM WORKER. Closure and sheath removal was performed with [...] (ABNORMAL) Differential, Automated (08/10/2017 5:50 AM EST) [facility] Method Time Signature Neutrophils % 80.1 % [facility] LABORATORY Neutr Abs (ANC) 9.01 (H) 1.70 - [facility] 6.10 [facility] x10(3)/[facility] LABORATORY Lymphocytes % 8.8 % [facility] LABORATORY Lymphocytes Abs 1.0 0.9 - 3.[address] [facility] x10(3)/[facility] LABORATORY Monocytes % 8.3 % [facility] LABORATORY Monocyte Abs 0.9 0.3 - 0.[address] [facility] x10(3)/[facility] LABORATORY Eosinophils % 2.0 % [facility] LABORATORY Eosinophils Abs 0.2 0.0 - 0.[address] [facility] x10(3)/[facility] LABORATORY Basophils % 0.4 % [facility] LABORATORY Basophils Abs 0.0 0.0 - 0.[address] [facility] x10(3)/[facility] LABORATORY Immature Gran % 0.40 [...] 0.00 - 0.04 x10(3)/[facility] LABORATORY Specimen Anatomical Collection Method Collection Time Receive d Time (Source) Location / / Volume Laterality Blood specimen 08/10/2017 5:50 AM 018 5:59 (specimen) EST AM EST Resulting Agency Comment Spec In Lab Yonathan Smith MD HEMATOLOGY ORDERABLES Performing Organization Address City/State/[place] [address] (ABNORMAL) Hemogram (08/10/2017 5:50 AM EST) Analysis Performed At Patho logist Time Signature WBC 11.3 (H) 4.0 - 9.[address] [facility] x10(3)/[facility] LABORATORY RBC 3.15 (L) 4.58 - [facility] 5.54 [facility] x10(6)/[facility] LABORATORY Hemoglobin 8.9 (L) 13.7 - [facility] 16.5 gm/dL [facility] LABORATORY Hematocrit 29.0 (L) 40.5 - [facility] 48.5 % [facility] LABORATORY MCV 92.1 82.9 - [facility] 93.1 [facility] LABORATORY MCH 28.3 27.5 - [facility] 32.1 pg [facility] LABORATORY MCHC 30.7 (L) 32.0 - [facility] 35.7 gm/dL [facility] LABORATORY Platelets 231 145 - [address] [facility] x10(3)/[facility] LABORATORY RDWSD 53.9 (H) 36.0 - [facility] 45.0 [facility] LABORATORY RDWCV 16.2 (H) 11.4 - [facility] 13.8 % [facility] LABORATORY MPV 8.7 7.6 - 12.9 [facility] LABORATORY nRBC % Auto 0.0 % [facility] LABORATORY nRBC Abs Auto 0.000 0.000 - [facility] 0.000 [facility] x10(3)/[facility] LABORATORY Specimen Anatomical Collection Method Collection Time Receive d Time (Source) Location / / Volume Laterality Blood specimen 08/10/2017 5:50 AM 018 5:59 (specimen) EST AM EST Resulting Agency Comment Spec In Lab Yonathan Smith MD HEMATOLOGY ORDERABLES Performing Organization Address City/[facility]/[place] [address] (ABNORMAL) Basic Metabolic Panel (non-fasting) (08/10/2017 5:50 AM EST) P athologist Signature Glucose Lvl 135 65 - [address] [facility] mg/dL [facility] LABORATORY Comment: Diabetes: >=200 mg/dL plus symp toms BUN 17 10 - 20 mg/dL [facility] LABORATORY Creatinine 1.05 0.80 - [...] [facility] LABORATORY Estimated GFR >60 >=60 [facility] LABORATORY Comment: The reported eGFR should be multiplied b y 1.2 for patients. The MDRD is not an appropriate measure o f renal function for patients with body mass extremes or in patients with acute kidney failure. http://[employer]/DHnkdep http://[employer]/DHMCnkf Specimen Anatomical Collection Method Collection Time Receive d Time (Source) Location / / Volume Laterality Blood specimen 08/10/2017 5:50 AM 018 5:59 (specimen) EST AM EST Resulting Agency Comment Spec In Lab Yonathan Smith MD CHEMISTRY ORDERABLES Performing Organization Address City/State/[place] [address] (ABNORMAL) Prothrombin Time (08/10/2017 5:50 AM EST) athologist Signature PT 16.8 (H) 11.8 - 14.0 [facility] LABORATORY INR 1.4 (H) 0.9 [...] Organization Address City/State/[place] [address] (ABNORMAL) POCT Glucose (08/10/2017 4:01 AM EST) athologist Signature POC Glucose 206 (H) 65 - 199 [facility] mg/dL [facility] LABORATORY Comment: Supplemental ranges: <140 mg/dL before meals <180 mg/dL all other times of the day Specimen Anatomical Collection Method Collection Time Receive d Time (Source) Location / / Volume Laterality Blood specimen 08/10/2017 4:01 AM 018 4:01 (specimen) EST AM EST Yonathan Smith MD POINT OF CARE TEST ORDERABLE S Performing Organization Address City/State/[place] [address] POCT Glucose (08/10/2017 2:01 AM EST) athologist Signature POC Glucose 188 65 - 199 [facility] mg/dL [facility] LABORATORY Comment: Supplemental ranges: <140 mg/dL before meals <180 mg/dL all other times of the day Specimen Anatomical Collection Method Collection Time Receive d Time (Source) Location / / Volume Laterality Blood specimen 08/10/2017 2:01 AM 018 2:01 (specimen) EST AM EST Yonathan Smith MD POINT OF CARE TEST ORDERABLE S Performing Organization Address City/[facility]/[place] [address] (ABNORMAL) POCT Glucose (08/09/2017 11:42 PM EST) athologist Signature POC Glucose 283 (H) 65 - 199 [facility] mg/dL [facility] LABORATORY Comment: Supplemental ranges: <140 mg/dL before meals <180 mg/dL all other times of the day Specimen Anatomical Collection Method Collection Time Receive d Time (Source) Location / / Volume Laterality Blood specimen 08/09/2017 11:42 8 (specimen) PM EST 11:42 PM EST Yonathan Smith MD POINT OF CARE TEST ORDERABLE S Performing Organization Address City/[facility]/[place] [address] POCT Glucose (08/09/2017 8:55 PM EST) athologist Signature POC Glucose 182 65 - 199 [facility] mg/dL [facility] LABORATORY Comment: Supplemental ranges: <140 mg/dL before meals <180 mg/dL all other times of the day Specimen Anatomical Collection Method Collection Time Receive d Time (Source) Location / / Volume Laterality Blood specimen 08/09/2017 8:55 PM 018 8:55 (specimen) EST PM EST Yonathan Smith MD POINT OF CARE TEST ORDERABLE S Performing Organization Address City/State/[place] [address] (ABNORMAL) APTT (08/09/2017 6:42 PM EST) P athologist Signature PTT 90 (H) 25 - 35 sec [facility] LABORATORY Comment: The recommended therapeutic range for fu ll dose, unfractionated heparin at [facility] is 80 ? 114 seconds. The use [...] Address City/State/ZIP Code Phon e Number [address] POCT Glucose (08/09/2017 4:41 PM EST) athologist Signature POC Glucose 195 65 - 199 [facility] mg/dL [facility] LABORATORY Comment: Supplemental ranges: <140 mg/dL before meals <180 mg/dL all other times of the day Specimen Anatomical Collection Method Collection Time Receive d Time (Source) Location / / Volume Laterality Blood specimen 08/09/2017 4:41 PM 018 4:41 (specimen) EST PM EST Yonathan Smith MD POINT OF CARE TEST ORDERABLE S Performing Organization Address City/[facility]/[place] [address] POCT Glucose (08/09/2017 12:29 PM EST) athologist Signature POC Glucose 140 65 - 199 [facility] mg/dL [facility] LABORATORY Comment: Supplemental ranges: <140 mg/dL before meals <180 mg/dL all other times of the day Specimen Anatomical Collection Method Collection Time Receive d Time (Source) Location / / Volume Laterality Blood specimen 08/09/2017 12:29 8 (specimen) PM EST 12:29 PM EST Yonathan Smith MD POINT OF CARE TEST ORDERABLE S Performing Organization Address City/[facility]/ZIP Code Phon e Number [address] POCT Glucose (08/09/2017 9:59 AM EST) athologist Signature POC Glucose 135 65 - 199 [facility] mg/dL [facility] LABORATORY Comment: Supplemental ranges: <140 mg/dL before meals <180 mg/dL all other times of the day Specimen Anatomical Collection Method Collection Time Receive d Time (Source) Location / / Volume Laterality Blood specimen 08/09/2017 9:59 AM 018 9:59 (specimen) EST AM EST Yonathan Smith MD POINT OF CARE TEST ORDERABLE S Performing Organization Address [facility]/ZIP Code Phon e Number [address] Specimen to Pathology (08/09/2017 [...] MD PATHOLOGY/CYTOLOGY ORDERABLE S Performing Organization Address City/[facility]/[place] [address] Surgical Pathology Report (08/09/2017 8:40 AM EST) Component Value Ref Test Analysis Performed At [facility] Range Method Time Signature Surgical [id number] ? Location: [address] [place] [address]; A [facility] Report The signing pathologist has (i) examined the relevant preparation(s) for the [facility] specimen(s) and (ii) rendered or confirmed the diagnosis(es) . HOSPITAL LABORATORY . 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 ?Viable proximal resection margins. Electronically signed by: ??Henrique Saravia MD Verified: ??08/13/2017 ?Pathologist Performed at: ??-[facility] Dept. of Pathology, [place], [place] CLINICAL INFORMATION Specimen Submitted: A - [...] MD PATHOLOGY/CYTOLOGY ORDERABLE S Performing Organization Address City/State/[facility] [place] [address] Anaerobic Culture (08/09/2017 8:30 AM EST) [facility] gist Method Time Signature Anaerobic No anaerobic [facility] Culture organisms [facility] LABORATORY Specimen Anatomical [...] - GENERAL ORDER ROBSON Performing Organization Address City/[facility]/[place] [address] (ABNORMAL) Abscess/Wound Aspirate Culture (08/09/2017 8:30 AM EST) [facility] Method Time Signature Abscess/Wound Moderate mixed [place] Aspirate bacterial [place] Culture morphotypes [facility] normal LABORATORY cutaneous leroy (A) Gram Stain Rare White Blood Cells [facility] Few Gram Positive Cocci in pairs [place] () [facility] LABORATORY Organism Gram Positive [place] Cocci in pairs [place] () [facility] LABORATORY Specimen Anatomical [...] - GENERAL ORDER ROBSON Performing Organization Address City/[facility]/[place] [address] POCT Glucose (08/09/2017 4:28 AM EST) P athologist Signature POC Glucose 128 65 - [address] [facility] mg/dL [facility] LABORATORY Comment: Supplemental ranges: <140 mg/dL before meals <180 mg/dL all other times of the day Specimen Anatomical Collection Method Collection Time Receive d Time (Source) Location / / Volume Laterality Blood specimen 08/09/2017 4:28 AM 018 4:28 (specimen) EST AM EST Yonathan Smith MD POINT OF CARE TEST ORDERABLE S Performing Organization Address City/State/ZIP Code Phon e Number [address] ABORH Recheck Status (08/09/2017 1:10 AM EST) [facility] Method Time Signature ABORH Type Completed [facility] LABORATORY Specimen Anatomical Collection Method Collection Time Receive d Time (Source) Location / / Volume Laterality Blood specimen 08/09/2017 1:10 AM 018 1:35 (specimen) EST AM EST Resulting Agency Comment Spec In Lab Yonathan Smith MD BLOOD BANK ORDERABLES Performing Organization Address City/[facility]/[place] [address] Antibody screen (08/09/2017 1:10 AM EST) Patholo gist Method Time Signature Ab Screen Negative [facility] LABORATORY Expires at 08/12/2017 BARBARA ZHAOSU [id number] on: [facility] LABORATORY Specimen Anatomical Collection Method Collection Time Receive d Time (Source) Location / / Volume Laterality Blood specimen 08/09/2017 1:10 AM 018 1:35 (specimen) EST AM EST Resulting Agency Comment Spec In Lab Yonathan Smith MD BLOOD BANK ORDERABLES Performing Organization Address City/[facility] [place] [address] ABO/Rh Typing (08/09/2017 1:10 AM EST) P athologist Signature ABORh Type O Pos [facility] LABORATORY Specimen Anatomical Collection Method Collection Time Receive d Time (Source) Location / / Volume Laterality Blood specimen 08/09/2017 1:10 AM 018 1:35 (specimen) EST AM EST Resulting Agency Comment Spec In Lab Yonathan Smith MD BLOOD BANK ORDERABLES Performing Organization Address City/[facility] [place] [address] (ABNORMAL) APTT (08/09/2017 1:10 AM EST) P athologist Signature PTT 86 (H) 25 - 35 sec [facility] LABORATORY Comment: The recommended therapeutic range for fu ll dose, unfractionated heparin at [facility] is 80 ? 114 seconds. The use [...] City/State/ZIP Code Phon e Number [place] [id number] HOSPITAL LABORATORY Drive (ABNORMAL) Differential, Automated (08/09/2017 1:10 AM EST) [facility] Method Time Signature Neutrophils % 76.2 % [facility] LABORATORY Neutr Abs (ANC) 8.59 (H) 1.70 - [facility] 6.10 [facility] x10(3)/[facility] LABORATORY Lymphocytes % 11.0 % [facility] LABORATORY Lymphocytes Abs 1.2 0.9 - 3.[address] [facility] x10(3)/[facility] LABORATORY Monocytes % 8.4 % [facility] LABORATORY Monocyte Abs 1.0 (H) 0.3 - 0.[address] [facility] x10(3)/[facility] LABORATORY Eosinophils % 3.5 % [facility] LABORATORY Eosinophils Abs 0.4 0.0 - 0.[address] [facility] x10(3)/[facility] LABORATORY Basophils % 0.5 % [facility] LABORATORY Basophils Abs 0.1 0.0 - 0.[address] [facility] x10(3)/[facility] LABORATORY Immature Gran % 0.40 [...] 0.00 - 0.04 x10(3)/[facility] LABORATORY Specimen Anatomical Collection Method Collection Time Receive d Time (Source) Location / / Volume Laterality Blood specimen 08/09/2017 1:10 AM 018 1:19 (specimen) EST AM EST Resulting Agency Comment Spec In Lab Yonathan Smith MD HEMATOLOGY ORDERABLES Performing Organization Address City/State/[place] [address] (ABNORMAL) Hemogram (08/09/2017 1:10 AM EST) Analysis Performed At Patho logist Time Signature WBC 11.3 (H) 4.0 - 9.[address] [facility] x10(3)/[facility] LABORATORY RBC 3.47 (L) 4.58 - [facility] 5.54 [facility] x10(6)/[facility] LABORATORY Hemoglobin 10.0 (L) 13.7 - [facility] 16.[facility] gm/dL [facility] LABORATORY Hematocrit 31.9 (L) 40.5 - [facility] 48.5 % [facility] LABORATORY MCV 91.9 82.9 - [facility] 93.1 [facility] LABORATORY MCH 28.8 27.5 - [facility] 32.1 pg [facility] MCHC 31.3 (L) 32.0 - [facility] 35.7 gm/dL [facility] Platelets 234 145 - [address] [facility] x10(3)/[facility] LABORATORY RDWSD 54.0 (H) 36.0 - [facility] 45.0 [facility] LABORATORY RDWCV 16.2 (H) 11.4 - [facility] 13.8 % [facility] MPV 8.7 7.6 - 12.9 [facility] LABORATORY nRBC % Auto 0.0 % [facility] LABORATORY nRBC Abs Auto 0.000 0.000 - [facility] 0.000 [facility] x10(3)/[facility] LABORATORY Specimen Anatomical Collection Method Collection Time Receive d Time (Source) Location / / Volume Laterality Blood specimen 08/09/2017 1:10 AM 018 1:19 (specimen) EST AM EST Resulting Agency Comment Spec In Lab Yonathan Smith MD HEMATOLOGY ORDERABLES Performing Organization Address City/State/[place] [address] (ABNORMAL) Prothrombin Time (08/09/2017 1:10 AM EST) P athologist Signature PT 16.0 (H) 11.8 - 14.0 [facility] LABORATORY INR 1.3 (H) 0.9 [...] Organization Address City/State/[place] [address] (ABNORMAL) Basic Metabolic Panel (non-fasting) (08/09/2017 1:10 AM EST) athologist Signature Glucose Lvl 108 65 - [address] [facility] mg/dL [facility] Comment: Diabetes: >=200 mg/dL plus symp toms BUN 34 (H) 10 - 20 mg/dL [facility] Creatinine 1.54 (H) 0.80 [...] Calcium 8.3 (L) 8.5 - 10.5 mg/dL [facility]OR[facility] Estimated GFR 45 (L) >=60 [place] [place] Comment: The reported eGFR should be multiplied b y 1.2 for patients. The MDRD is not an appropriate measure o f renal function for patients with body mass extremes or in patients with acute kidney failure. http://[employer]/DHnkdep http://[employer]/DHMCnkf Specimen Anatomical Collection Method Collection Time Receive d Time (Source) Location / / Volume Laterality Blood specimen 08/09/2017 1:10 AM 018 1:19 (specimen) EST AM EST Resulting Agency Comment Spec In Lab Yonathan Smith MD CHEMISTRY ORDERABLES Performing Organization Address City/[facility] Code Phon e Number [address] POCT Glucose (08/09/2017 12:05 AM EST) athologist Signature POC Glucose 128 65 - 199 [facility] mg/dL [facility] Comment: Supplemental ranges: <140 mg/dL before meals <180 mg/dL all other times of the day Specimen Anatomical Collection Method Collection Time Receive d Time (Source) Location / / Volume Laterality Blood specimen 08/09/2017 12:05 8 (specimen) AM EST 12:05 AM EST Yonathan Smith MD POINT OF CARE TEST ORDERABLE S Performing Organization Address City/[facility]/[place] [address] (ABNORMAL) POCT Glucose (08/08/2017 7:36 PM EST) athologist Signature POC Glucose 215 (H) 65 - 199 [place] [place] mg/dL [facility] Comment: Supplemental ranges: <140 mg/dL before meals <180 mg/dL all other times of the day Specimen Anatomical Collection Method Collection Time Receive d Time (Source) Location / / Volume Laterality Blood specimen 08/08/2017 7:36 PM 018 7:36 (specimen) EST PM EST Yonathan Smith MD POINT OF CARE TEST ORDERABLE S Performing Organization Address City/[facility]/[place] [address] (ABNORMAL) POCT Glucose (08/08/2017 6:23 PM EST) athologist Signature POC Glucose 216 (H) 65 - 199 [facility] mg/dL [facility] Comment: Supplemental ranges: <140 mg/dL before meals <180 mg/dL all other times of the day Specimen Anatomical Collection Method Collection Time Receive d Time (Source) Location / / Volume Laterality Blood specimen 08/08/2017 6:23 PM 018 6:23 (specimen) EST PM EST Yonathan Smith MD POINT OF CARE TEST ORDERABLE S Performing Organization Address City/State/ZIP Code [facility] e Number [address] (ABNORMAL) APTT (08/08/2017 6:00 PM EST) athologist [facility] PTT 97 (H) 25 - 35 sec [facility]ORY Comment: The recommended therapeutic range for fu ll dose, unfractionated heparin at [facility] is 80 ? 114 seconds. The use [...] Address City/State/ZIP Code Phon e Number [address] POCT Glucose (08/08/2017 4:42 PM EST) athologist Signature POC Glucose 78 65 - [address] [facility] mg/dL [facility] Comment: Supplemental ranges: <140 mg/dL before meals <180 mg/dL all other times of the day Specimen Anatomical Collection Method Collection Time Receive d Time (Source) Location / / Volume Laterality Blood specimen 08/08/2017 4:42 PM 018 4:42 (specimen) EST PM EST Yonathan Smith MD POINT OF CARE TEST ORDERABLE S Performing Organization Address City/State/ZIP Code Phon e Number [address] (ABNORMAL) POCT Glucose (08/08/2017 4:01 PM EST) athologist Signature POC Glucose 58 (L) 65 - 199 [facility] mg/dL [facility] Comment: Supplemental ranges: <140 mg/dL before meals <180 mg/dL all other times of the day Specimen Anatomical Collection Method Collection Time Receive d Time (Source) Location / / Volume Laterality Blood specimen 08/08/2017 4:01 PM 018 4:01 (specimen) EST PM EST Yonathan Smith MD POINT OF CARE TEST ORDERABLE S Performing Organization Address City/[facility]/[place] [address] POCT Glucose (08/08/2017 11:51 AM EST) athologist Signature POC Glucose 90 65 - 199 [facility] mg/dL [facility] Comment: Supplemental ranges: <140 mg/dL before meals <180 mg/dL all other times of the day Specimen Anatomical Collection Method Collection Time Receive d Time (Source) Location / / Volume Laterality Blood specimen 08/08/2017 11:51 8 (specimen) AM EST 11:51 AM EST Yonathan Smith MD POINT OF CARE TEST ORDERABLE S Performing Organization Address City/State/[place] [address] (ABNORMAL) APTT (08/08/2017 10:27 AM EST) athologist Signature PTT 64 (H) 25 - 35 sec [facility]ORY Comment: The recommended therapeutic range for fu ll dose, unfractionated heparin at [facility] is 80 ? 114 seconds. The use [...] Organization Address City/State/[place] [address] POCT Glucose (08/08/2017 8:02 AM EST) athologist Signature POC Glucose 178 65 - 199 [facility] mg/dL [facility] Comment: Supplemental ranges: <140 mg/dL before meals <180 mg/dL all other times of the day Specimen Anatomical Collection Method Collection Time Receive d Time (Source) Location / / Volume Laterality Blood specimen 08/08/2017 8:02 AM 018 8:02 (specimen) EST AM EST Yonathan Smith MD POINT OF CARE TEST ORDERABLE S Performing Organization Address City/[facility] [place] [address] (ABNORMAL) APTT (08/08/2017 4:51 AM EST) athologist Signature PTT >160 25 - 35 [facility] (Critical) sec [facility] Comment: Called by: HOWARD, Read back by: Melba Jaramillo, Date/Time:08/08/17 05:43. The recommended therapeutic range for fu ll dose, unfractionated heparin at [facility] is 80 ? 114 seconds. The use [...] Smith MD HEMATOLOGY ORDERABLES Performing Organization Address City/[facility]/ZIP [facility] [place] [address] (ABNORMAL) Differential, Automated (08/08/2017 4:51 AM EST) Patholo gist Method Time Signature Neutrophils % 77.9 % [facility] LABORATORY Neutr Abs (ANC) 8.17 (H) 1.70 - [facility] 6.10 [facility] x10(3)/[facility] LABORATORY Lymphocytes % 10.3 % [facility] LABORATORY Lymphocytes Abs 1.1 0.9 - 3.[address] [facility] x10(3)/[facility] LABORATORY Monocytes % 7.0 % [facility] LABORATORY Monocyte Abs 0.7 0.3 - 0.[address] [facility] x10(3)/[facility] LABORATORY Eosinophils % 3.6 % [facility] LABORATORY Eosinophils Abs 0.4 0.0 - 0.[address] [facility] x10(3)/[facility] LABORATORY Basophils % 0.5 % [facility] LABORATORY Basophils Abs 0.0 0.0 - 0.[address] [facility] x10(3)/[facility] LABORATORY Immature Gran % 0.70 [...] 0.00 - 0.04 x10(3)/[facility] LABORATORY Specimen Anatomical Collection Method Collection Time Receive d Time (Source) Location / / Volume Laterality Blood specimen 08/08/2017 4:51 AM 018 5:14 (specimen) EST AM EST Resulting Agency Comment Spec In Lab Yonathan Smith MD HEMATOLOGY ORDERABLES Performing Organization Address City/State/[place] [address] (ABNORMAL) Hemogram (08/08/2017 4:51 AM EST) Analysis Performed At Patho logist Time Signature WBC 10.5 (H) 4.0 - 9.[address] [facility] x10(3)/[facility] LABORATORY RBC 3.27 (L) 4.58 - [place] 5.54 [facility] x10(6)/[facility] LABORATORY Hemoglobin 9.3 (L) 13.7 - [facility] 16.[facility] gm/dL [facility] Hematocrit 30.3 (L) 40.5 - [facility] 48.5 % [facility] MCV 92.7 82.9 - [facility] 93.1 [facility] LABORATORY MCH 28.4 27.5 - [facility] SU 32.1 pg [facility] MCHC 30.7 (L) 32.0 - [facility] 35.7 gm/dL [facility] Platelets 252 145 - [address] [facility] x10(3)/[facility] LABORATORY RDWSD 54.6 (H) 36.0 - [facility] 45.0 [facility] RDWCV 16.2 (H) 11.4 - [facility] 13.8 % [facility] LABORATORY MPV 9.1 7.6 - 12.9 [facility] LABORATORY nRBC % Auto 0.0 % [facility] LABORATORY nRBC Abs Auto 0.000 0.000 - [facility] 0.000 [facility] x10(3)/[facility] LABORATORY Specimen Anatomical Collection Method Collection Time Receive d Time (Source) Location / / Volume Laterality Blood specimen 08/08/2017 4:51 AM 018 5:14 (specimen) EST AM EST Resulting Agency Comment Spec In Lab Yonathan Smith MD HEMATOLOGY ORDERABLES Performing Organization Address City/State/[place] [address] (ABNORMAL) Prothrombin Time (08/08/2017 4:51 AM EST) P athologist Signature PT 18.1 (H) 11.8 - 14.0 [facility] [...] Organization Address City/State/[place] [address] (ABNORMAL) Basic Metabolic Panel (non-fasting) (08/08/2017 4:51 AM EST) athologist Signature Glucose Lvl 229 (H) 65 - [address] [facility] mg/dL [facility] Comment: Diabetes: >=200 mg/dL plus symp toms BUN 35 (H) 10 - 20 mg/dL [facility]OR[facility]ORY Creatinine 1.57 (H) 0.80 [...] 15 mmol/L [facility]ORY Calcium 7.9 (L) 8.5 - 10.5 mg/dL [facility]OR[facility]ORY Estimated GFR 44 (L) >=60 [facility]ORY Comment: The reported eGFR should be multiplied b y 1.2 for patients. The MDRD is not an appropriate measure o f renal function for patients with body mass extremes or in patients with acute kidney failure. http://[employer]/DHnkdep http://[employer]/DHMCnkf Specimen Anatomical Collection Method Collection Time Receive d Time (Source) Location / / Volume Laterality Blood specimen 08/08/2017 4:51 AM 018 5:14 (specimen) EST AM EST Resulting Agency Comment Spec In Lab Yonathan Smith MD CHEMISTRY ORDERABLES Performing Organization Address City/[facility]/ZIP Code Phon e Number [address] POCT Glucose (08/08/2017 4:20 AM EST) athologist Signature POC Glucose 193 65 - 199 [facility] mg/dL [facility] Comment: Supplemental ranges: <140 mg/dL before meals <180 mg/dL all other times of the day Specimen Anatomical Collection Method Collection Time Receive d Time (Source) Location / / Volume Laterality Blood specimen 08/08/2017 4:20 AM 018 4:20 (specimen) EST AM EST Yonathan Smith MD POINT OF CARE TEST ORDERABLE S Performing Organization Address City/[facility]/ZIP Code Phon e Number [address] POCT Glucose (08/07/2017 11:11 PM EST) athologist Signature POC Glucose 124 65 - 199 [facility] mg/dL [facility] Comment: Supplemental ranges: <140 mg/dL before meals <180 mg/dL all other times of the day Specimen Anatomical Collection Method Collection Time Receive d Time (Source) Location / / Volume Laterality Blood specimen 08/07/2017 11:11 8 (specimen) PM EST 11:11 PM EST Yonathan Smith MD POINT OF CARE TEST ORDERABLE S Performing Organization Address City/[facility]/ZIP Code Phon e Number [address] (ABNORMAL) APTT (08/07/2017 10:18 PM EST) athologist Signature PTT 114 (H) 25 - 35 sec [facility] LABORATORY Comment: The recommended therapeutic range for fu ll dose, unfractionated heparin at [facility] is 80 ? 114 seconds. The use [...] Smith MD HEMATOLOGY ORDERABLES Performing Organization Address City/[facility]/ZIP Code Phon e Number [address] POCT Glucose (08/07/2017 8:10 PM EST) athologist Signature POC Glucose 140 65 - 199 [facility] mg/dL [facility] Comment: Supplemental ranges: <140 mg/dL before meals <180 mg/dL all other times of the day Specimen Anatomical Collection Method Collection Time Receive d Time (Source) Location / / Volume Laterality Blood specimen 08/07/2017 8:10 PM 018 8:10 (specimen) EST PM EST Yonathan Smith MD POINT OF CARE TEST ORDERABLE S Performing Organization Address City/[facility]/ZIP Code Phon e Number [address] POCT Glucose (08/07/2017 5:27 PM EST) athologist Signature POC Glucose 187 65 - 199 [facility] mg/dL [facility] Comment: Supplemental ranges: <140 mg/dL before meals <180 mg/dL all other times of the day Specimen Anatomical Collection Method Collection Time Receive d Time (Source) Location / / Volume Laterality Blood specimen 08/07/2017 5:27 PM 018 5:27 (specimen) EST PM EST Yonathan Smith MD POINT OF CARE TEST ORDERABLE S Performing Organization Address City/[facility]/ZIP Code Phon e Number [address] POCT Glucose (08/07/2017 3:29 PM EST) athologist Signature POC Glucose 86 65 - 199 [facility] mg/dL [facility] Comment: Supplemental ranges: <140 mg/dL before meals <180 mg/dL all other times of the day Specimen Anatomical Collection Method Collection Time Receive d Time (Source) Location / / Volume Laterality Blood specimen 08/07/2017 3:29 PM 018 3:29 (specimen) EST PM EST Yonathan Smith MD POINT OF CARE TEST ORDERABLE S Performing Organization Address City/[facility]/[place] [address] (ABNORMAL) APTT (08/07/2017 2:50 PM EST) athologist [facility] PTT 60 (H) 25 - 35 sec [facility] LABORATORY Comment: The recommended therapeutic range for fu ll dose, unfractionated heparin at [facility] is 80 ? 114 seconds. The use [...] Smith MD HEMATOLOGY ORDERABLES Performing Organization Address City/[facility]/[place] [address] (ABNORMAL) POCT Glucose (08/07/2017 2:23 PM EST) athologist Signature POC Glucose 55 (L) 65 - 199 [facility] mg/dL [facility] Comment: Supplemental ranges: <140 mg/dL before meals <180 mg/dL all other times of the day Specimen Anatomical Collection Method Collection Time Receive d Time (Source) Location / / Volume Laterality Blood specimen 08/07/2017 2:23 PM 018 2:23 (specimen) EST PM EST Yonathan Smith MD POINT OF CARE TEST ORDERABLE S Performing Organization Address City/[facility]/ZIP Code [place] [address] [facility] LAB[address]ORY Drive POCT Glucose (08/07/2017 12:08 PM EST) P athologist Signature POC Glucose 77 65 - [address] [facility] mg/dL [facility] Comment: Supplemental ranges: <140 mg/dL before meals <180 mg/dL all other times of the day Specimen Anatomical Collection Method Collection Time Receive d Time (Source) Location / / Volume Laterality Blood specimen 08/07/2017 12:08 8 (specimen) PM EST 12:08 PM EST Yonathan Smith MD POINT OF CARE TEST ORDERABLE S Performing Organization Address City/State/ZIP Code Phon e Number [address] (ABNORMAL) Differential, Automated (08/07/2017 7:30 AM EST) Patholo gist Method Time Signature Neutrophils % 73.8 % [facility] LABORATORY Neutr Abs (ANC) 7.17 (H) 1.70 - [facility] 6.10 [facility] x10(3)/[facility] LABORATORY Lymphocytes % 12.2 % [facility] LABORATORY Lymphocytes Abs 1.2 0.9 - 3.[address] [facility] x10(3)/[facility] LABORATORY Monocytes % 9.0 % [facility] LABORATORY Monocyte Abs 0.9 0.3 - 0.[address] [facility] x10(3)[facility] LABORATORY Eosinophils % 3.9 % [facility] LABORATORY Eosinophils Abs 0.4 0.0 - 0.[address] [facility] x10(3)/[facility] LABORATORY Basophils % 0.6 % [facility] LABORATORY Basophils Abs 0.1 0.0 - 0.[address] [facility] x10(3)/[facility] LABORATORY Immature Gran % 0.50 [...] 0.00 - 0.04 x10(3)/[facility] LABORATORY Specimen Anatomical Collection Method Collection Time Receive d Time (Source) Location / / Volume Laterality Blood specimen 08/07/2017 7:30 AM 018 7:45 (specimen) EST AM EST Resulting Agency Comment Spec In Lab Yonathan Smith MD HEMATOLOGY ORDERABLES Performing Organization Address City/State/[place] [address] (ABNORMAL) Hemogram (08/07/2017 7:30 AM EST) Analysis Performed At Patho logist Time Signature WBC 9.7 (H) 4.0 - 9.[address] [facility] x10(3)/[facility] LABORATORY RBC 3.54 (L) 4.58 - [facility] 5.54 [facility] x10(6)/[facility] LABORATORY Hemoglobin 9.9 (L) 13.7 - [facility] 16.5 gm/dL [facility]ORY Hematocrit 32.3 (L) 40.5 - [facility] 48.5 % [facility] LABORATORY MCV 91.2 82.9 - [facility] 93.1 [facility] LABORATORY MCH 28.0 27.5 - [facility] 32.1 pg [facility] LABORATORY MCHC 30.7 (L) 32.0 - [facility] 35.7 gm/dL [facility] LAB[facility]ORY Platelets 312 145 - [address] [facility] x10(3)/[facility] LABORATORY RDWSD 53.2 (H) 36.0 - [facility] SU 45.0 [facility] LABORATORY RDWCV 16.0 (H) 11.4 - [facility] 13.8 % [facility] LABORATORY MPV 8.9 7.6 - 12.9 [facility] LABORATORY nRBC % Auto 0.0 % [facility] LABORATORY nRBC Abs Auto 0.000 0.000 - [facility] 0.000 [facility] x10(3)/[facility] LABORATORY Specimen Anatomical Collection Method Collection Time Receive d Time (Source) Location / / Volume Laterality Blood specimen 08/07/2017 7:30 AM 018 7:45 (specimen) EST AM EST Resulting Agency Comment Spec In Lab Yonathan Smith MD HEMATOLOGY ORDERABLES Performing Organization Address City/State/[place] [address] (ABNORMAL) Basic Metabolic Panel (non-fasting) (08/07/2017 7:30 AM EST) P athologist Signature Glucose Lvl 80 65 - [address] [facility] mg/dL [facility] LABORATORY Comment: Diabetes: >=200 mg/dL plus symp toms BUN 31 (H) 10 - 20 mg/dL [facility] LABORATORY Creatinine 1.22 0.80 - [...] HOSPITAL LABORATORY Estimated GFR 59 (L) >=60 [facility] LABORATORY Comment: The reported eGFR should be multiplied b y 1.2 for patients. The MDRD is not an appropriate measure o f renal function for patients with body mass extremes or in patients with acute kidney failure. http://[employer]/DHnkdep http://[employer]/DHMCnkf Specimen Anatomical Collection Method Collection Time Receive d Time (Source) Location / / Volume Laterality Blood specimen 08/07/2017 7:30 AM 018 7:45 (specimen) EST AM EST Resulting Agency Comment Spec In Lab Yonathan Smith MD CHEMISTRY ORDERABLES Performing Organization Address City/[facility]/ZIP Code Phon e Number [address] POCT Glucose (08/07/2017 7:27 AM EST) athologist Signature POC Glucose 81 65 - [address] [facility] mg/dL [facility]ORY Comment: Supplemental ranges: <140 mg/dL before meals <180 mg/dL all other times of the day Specimen Anatomical Collection Method Collection Time Receive d Time (Source) Location / / Volume Laterality Blood specimen 08/07/2017 7:27 AM 018 7:27 (specimen) EST AM EST Yonathan Smith MD POINT OF CARE TEST ORDERABLE S Performing Organization Address [facility] Phon e Number [address] APTT (08/07/2017 7:04 AM EST) athologist [facility] PTT 34 25 - 35 sec [facility] LABORATORY Comment: The recommended therapeutic range for fu ll dose, unfractionated heparin at [facility] is 80 ? 114 seconds. The use [...] Smith MD HEMATOLOGY ORDERABLES Performing Organization Address City/[facility]/ZIP [facility] [place] [address] (ABNORMAL) Prothrombin Time (08/07/2017 7:04 AM EST) athologist [facility] PT 17.3 (H) 11.8 - 14.0 [facility] LABORATORY INR 1.4 (H) 0.9 [...] Smith MD HEMATOLOGY ORDERABLES Performing Organization Address City/[facility]/ZIP Code Phon e Number [address] POCT Glucose (08/07/2017 4:03 AM EST) athologist Signature POC Glucose 93 65 - 199 [facility] mg/dL [facility] LABORATORY Comment: Supplemental ranges: <140 mg/dL before meals <180 mg/dL all other times of the day Specimen Anatomical Collection Method Collection Time Receive d Time (Source) Location / / Volume Laterality Blood specimen 08/07/2017 4:03 AM 018 4:03 (specimen) EST AM EST Yonathan Smith MD POINT OF CARE TEST ORDERABLE S Performing Organization Address City/[facility]/ZIP Code Phon e Number [address] POCT Glucose (08/07/2017 12:04 AM EST) athologist Signature POC Glucose 107 65 - 199 [facility] Comment: Supplemental ranges: <140 mg/dL before meals <180 mg/dL all other times of the day Specimen Anatomical Collection Method Collection Time Receive d Time (Source) Location / / Volume Laterality Blood specimen 08/07/2017 12:04 8 (specimen) AM EST 12:04 AM EST Yonathan Smith MD POINT OF CARE TEST ORDERABLE S Performing Organization Address City/[facility]/ZIP Code Phon e Number [address] POCT Glucose (08/06/2017 7:56 PM EST) P athologist Signature POC Glucose 178 65 - 199 [place] [facility] mg/dL [facility] Comment: Supplemental ranges: <140 mg/dL before meals <180 mg/dL all other times of the day Specimen Anatomical Collection Method Collection Time Receive d Time (Source) Location / / Volume Laterality Blood specimen 08/06/2017 7:56 PM 018 7:56 (specimen) EST PM EST Yonathan Smith MD POINT OF CARE TEST ORDERABLE S Performing Organization Address City/State/[place] [address] [id number] (08/06/2017 2:32 PM EST) Component Value Ref Test Analysis Performed At Patholo gist Range Method Time Signature VB Text Department: Vascular Surgery Lab [facility] Report Patient: [id number] (GREGORY HOANG) CPT: 8272803 ICD10: I99.8 Referring Physician: YONATHAN SMITH ?? [...] 0712, Until Wed08/10/17 at 0748, [place]: dagmarinet override fentaNYL 50 mcg/mL multi-dose injection Given [...] MEALS, First dose (after last modification) on Wed08/07/17 at 1700, Until Discontinued, MEAL [...] Chiquis Mcgrath RN)1714 (Given - Provider: Chiquis Mcgrath, VAMSI) 0630 (Given - Provider: Mira Truong RN)1119 [...] (Given - Provider: Chiquis Mcgrath RN) 0800 (Marc smith - Provider: Dory Truong RN) 400 mg, [...] 08 (Given - Provider: Dory Truong, VAMSI) 40 [...] RN) 0749 (Given - Provider: Dory Yuan ams RN)1200 (Not Given - Provider: Dory Truong [...] - 240 Gi 1213 (Given - Provider: Chiuqis Mcgrath, VAMSI - Comment: BG 141)1730 (Given - Provider: [...] RN) 0502 (Given - Provider: Henrique Marks, VAMSI) 0631 (G iven - Provider: Mira Trunog, RN) 175 mcg, Oral, EVERY MORNING, First [...] Truong, RN) 08 (Given - Provider: Dory Truong, VAMSI) 400 [...] Truong, RN) 08 (Given - Provider: Dory Truong, RN) 8.6 [...] Routine warfarin (COUMADIN) tablet 2.5 mg (COMPLETED) 1713 (Given - Provider: Chiquis Mcgraht RN) 2.5 mg, Oral, ONCE, 1 dose, [...]
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
--- OUTSIDE RECORDS SUMMARY | 2022-02-25 08:14 | XMS_ITS | Encounter Summary ---
:1945 Author Organization [facility] [place] [address] Care Team Providers Name Role Phone Lovely Vicente MD Primary Care Provider Reason for Visit Auth/Cert Specialty Diagnoses / Procedures Referred By Contact Refer red To Contact Diagnoses Critical lower limb ischemia CELLULITIS RT FOOT Procedures EMERGENCY Referral ID Status Reason Start Date Expiration Date Visits Requ ested Visits Authorized [id number] 1 1 Encounter Details Date Type Department Care Team Description 08/09/2017 Surgery Main Operating Room Yonathan Smith AM PUTATION, Mary Hitchcock MD TRANSMETATARSAL ([facility] 12.71) [facility] [address] [place]idd[place] [address] [place] [address] [phone] Social History Tobacco Use Types Packs/Day Years [...] 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 [...] Dorsalis Pedis (Ankle) Artery ?132 ? 0.94 ??[place]-Biphasic ? Posterior Tibial (Ankle) Artery ??154 ? 1.10 ??[place]-Biphasic ? Fourth Toe ? 67 ?0.48 ?? [...] the foot. Discharge Conditions/Prognosis: Good Discharge to: [facility] Rehab Discharge Medications: Your Medications New [...] For any problems or questions please call [phone] ZELDA Smith, medication coordinator Nurse Clinician For issues on weeknights after 5pm and weekends please call [phone] and ask for the Vascular Fellow director of public relations. General Instructions None Future Appointments and Orders Future Appointments Provider Department Dept Phone 08/26/2017 4:00 PM Aurelia Rivera PA Vascular Surgery at [place] [phone] 09/07/2017 3:00 PM LAB, THREE L Lab 3L [facility] [phone] 09/07/2017 4:00 PM Luz Prescott MD Endocrinology at [place] [phone] 09/09/2017 8:00 AM Barbra Soares APRN Pain Management at [place] [phone] Please bring a list of your current [...] For any problems or questions please call [phone] ZELDA Smith, medication coordinator Nurse Clinician For issues on weeknights after 5pm and weekends please call [phone] and ask for the Vascular Fellow director of public relations. documented in this encounter Medications at Time [...] of Care Management Discharge Note Patient Destination: [facility] ([facility] [address] [id number] Transportation: with (at bedside) Time of Discharge: by 12 noon Level of Care: swing Patient Aware: yes Family Notified: yes Md to call report to: Yissel Quintero PLANNING MANAGER already called RN to call report to: [phone] Shirin Wolf Office of Care Management Pager [phone] Shirin Wolf RN - 08/16/2017 10:50 AM EST [facility] has offered pt swing bed. Pt and accept bed. will transport via car. PLANNING MANAGER Yissel Quintero aware; d/c paperwork will be completed by 12 noon. [facility] requests pt arrival by 1400 today; PLANNING MANAGER, RN, and family aware. PLANNING MANAGER called [facility] and was told that they prefer pt to arrive with wound vac dressing applied but clamped. PLANNING MANAGER applied new wound vac dressing. RN has [facility] number to call report. PASSR completed; PLANNING MANAGER paged to request provider signature in highlighted space. Indigo from [facility] notified via email that home wound vac now cancelled; [facility] has picked up from room and order cancelled. Packet started and provided to community relations manager. Medicare important message explained to patient, patient signed. Copy provided to patient and signature page to OCM for inclusion in pt EMR. L Radha Powers Yoselin - 08/16/2017 10:34 AM EST Office of Care Management/Director Of Bands Patient Name: Gregory Hoang : 1945 Patient has been offered a swing bed at [facility]. The patient will be transported by private transportation. No MD to MD report necessary Please call Nursing Report to [phone], ask for animal feeder. Info to accompany patient: Narcotic Prescriptions Copies of Medication Administration Records and IV sheets for past 10 days. Plan: Director Of Bands will be available to the patient and Medical Social Consultant-RN and/or Computer Scientist for further assistance. Patient will be discharged to: [address] [id number] Radha Powers, Director Of Bands Mira Truong, VAMSI - 08/15/2017 10:05 PM EST [address] Flores to ask if he wanted to hold metoprolol dose. BP 95/58. OK to hold this dose Courtney Brito - 08/15/2017 3:26 PM EST Office of Care Management(OCM)/Director Of Bands(RS)/ D/C Planning re : Patient is medically ready for d/c today. RS has been in contact with [facility] to see if they could offer a bed. [facility] is still reviewing the case and need their MD to review chart prior to accepting or declining. OCM team needs to check in with [facility] tomorrow to check on status. 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 Vac in [...] would like information about patient's referral to: [facility] PHONE: [phone] FAX: [phone] CM spoke with RS who said that [...] rehab. Await recommendations from PT. Covering pager #[phone]. 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 Sales Representative Trainee Kaitlin Saha, RN Pager #[phone] Payam Rosales - 08/13/2017 2:37 PM EST Doctor Of Nurse Anesthesia Encounter Note Patient Name: Gregory Hoang : [id number] MR#: [id number] Admit Date: 08/06/2017 1:41 PM Hospital Day 7 days Narrative: Visited to introduce and assess acceptance of Doctor Of Nurse Anesthesia services. Pt was awake, alert, oriented and in chair and family was there. Assessment:Patient coping positively with stresses of illness/hospitalization at this time. Pt says that he is hoping to get better and his family was there. Pt says that he has family care and supportand taking one day at time. Intervention and Outcome: Provided emotional support and encouraging presence. 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 A letter describing our affiliations was reviewed with them and theywere educated about their right to choose where referrals are placed. Patient requests referral to [facility] its learning. PHONE: [phone] FAX: [phone]. And Home NPWT (Negative Pressure Wound Therapy) aka wound vac device made available to pt. Serial # confirmed. Reviewed [facility] Proof of Delivery/Assignment of Benefits Statement(POD/AOB) Form w patient or authorized agent signing on behalf of patient. Copy of POD/AOB provided to pt and other copy faxed to [employer] @ fax# [phone] Expected date of discharge: 08/12/2017. 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 Address: [address] [place] [address] [place] [address] (home) Mobile: Telephone Information: Referring Provider: No [...] SETUP performed by Manny Mcknight MD at [facility] MAIN OR ??? PRO CABG, ARTERIAL, SINGLE N/A 07/07/2017 @CABG, USING ARTERIAL GRAFT;SINGLE ARTERIAL GRAFT (WRVU 33.75) performed by Yuan Retana MD at [facility] MAIN OR ??? PRO CABG, ARTERY-VEIN, TWO N/A 07/07/2017 @CABG, TWO VENOUS GRAFTS & ARTERIAL GRAFT (WRVU 7.93) performed by Yuan Retana MD at [facility] MAIN OR ??? PRO COLONOSCOPY, REMV LESN, SNARE 01/16/2014 COLONOSCOPY, POLYPECTOMY, REMOVAL LESION BY SNARE performed by Nohemi Jaimes MD at [facility] ENDOSCOPY ??? PRO ENDOSCOPY W/VIDEO-ASST VEIN HARVEST, CABG Right 07/07/2017 ENDOSCOPIC HARVEST VEIN(S) FOR CABG (WRVU 0.31) performed by Yuan Retana MD at [facility] MAIN OR ??? 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. Heparin gtt continues to run. Pt [...] of : 1945 AGE 72 y.o. Address: [address] [place] [address] [place] [address] (home) Mobile: Telephone Information: Referring Provider: No [...] SETUP performed by Manny Mcknight MD at [facility] MAIN OR ??? PRO CABG, ARTERIAL, SINGLE N/A 07/07/2017 @CABG, USING ARTERIAL GRAFT;SINGLE ARTERIAL GRAFT (WRVU 33.75) performed by Yuan Retana MD at [facility] MAIN OR ??? PRO CABG, ARTERY-VEIN, TWO N/A 07/07/2017 @CABG, TWO VENOUS GRAFTS & ARTERIAL GRAFT (WRVU 7.93) performed by Yuan Retana MD at [facility] OR ??? PRO COLONOSCOPY, REMV LESN, SNARE 01/16/2014 COLONOSCOPY, POLYPECTOMY, REMOVAL LESION BY SNARE performed by Nohemi Jaimes MD at [facility] ENDOSCOPY ??? PRO ENDOSCOPY W/VIDEO-ASST VEIN HARVEST, CABG Right 07/07/2017 ENDOSCOPIC HARVEST VEIN(S) FOR CABG (WRVU 0.31) performed by Yuan Retana MD at [facility] MAIN OR ??? 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 Vascular resident director of public relations and will forward result to the team prior to rounds. 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 [...] SETUP performed by Manny Mcknight MD at [facility] MAIN OR ??? PRO CABG, ARTERIAL, SINGLE N/A 07/07/2017 @CABG, USING ARTERIAL GRAFT;SINGLE ARTERIAL GRAFT (WRVU 33.75) performed by Yuan Retana MD at [facility] MAIN OR ??? PRO CABG, ARTERY-VEIN, TWO N/A 07/07/2017 @CABG, TWO VENOUS GRAFTS & ARTERIAL GRAFT (WRVU 7.93) performed by Yuan Retana MD at [facility] MAIN OR ??? PRO COLONOSCOPY, REMV LESN, SNARE 01/16/2014 COLONOSCOPY, POLYPECTOMY, REMOVAL LESION BY SNARE performed by Nohemi Jaimes MD at [facility] ENDOSCOPY ??? PRO ENDOSCOPY W/VIDEO-ASST VEIN HARVEST, CABG Right 07/07/2017 ENDOSCOPIC HARVEST VEIN(S) FOR CABG (WRVU 0.31) performed by Yuan Retana MD at [facility] MAIN OR ??? PRO THYROIDECTOMY 03/28/2013 THYROIDECTOMY, TOTAL OR COMPLETE performed by Manny Mcknight MD at [facility] MAIN OR Functional Status/Social Hx: [...] left blue toes with CTA showing R RABBET OPERATOR pseudoaneurysm (now thrombosed) and occluded ATs [...] 2.5x80 5. Completion RLE angiogram 6. L RABBET OPERATOR angiogram 7. 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 - L RABBET OPERATOR angriogram demonstrated: High femoral bifurcation over the proximal half of the femoral head. L RABBET OPERATOR access in the distal L RABBET OPERATOR. - Closure device: Mynx Technical Procedure: [...] for a 45cm 5F Destination. V18 and [place] and QuickCross catheters were used to select [...] 5F. A stationed picture of the L RABBET OPERATOR was performed as the patient was noted to have a very high bifurcation. Access appeared in the distal R RABBET OPERATOR. Closure and sheath removal was performed [...] PM EST 1440 report called to 5 [place] nurse Tessa RN documented in this encounter [...] with pt and pt's spouse. Discharge to [facility]. Goal: Individualization & Mutuality Outcome: Outcome [...] sit/sit to supine -- Bed Mobility Goal, [place] Level independent -- Bed Mobility Goal, Date [...] days -- Transfer Training Goal, Activity Type fal-sg-qyyqd/kxryc-sk-llk -- Transfer Train Goal, [place] Level conditional independence -- Transfer Train Goal, [...] call cabello within reach, Hourly rounding by RN/OCEAN IMPORT REPRESENTATIVE. Bed alarm / Chair alarm. Patient-specific fall [...] Smith MD - 08/15/2017 6:28 PM EST [facility] Operative Note Patient Name: Gregory Hoang : [id number] MR#: [id number] Case Date: 08/09/2017 Surgeon: Surgeon(s) and Role: [...] 2.5x80 5. Completion RLE angiogram 6. L RABBET OPERATOR angiogram 7. Mynx closure Precautions/Restrictions: fall, [...] feet/ bed -> bathroom). Anticipated Discharge Disposition: care home facility, other (see comments) (or swing bed) Pager: [phone] BASSAM ELIAS, PT 08/14/2017 Inpatient Physical Therapy [...] to Achieve by discharge Gait Training Goal, [place] Level conditional independence;set up required Gait Training [...] these facilities over the weekend except for [facility]. CM spoke with [facility] CM Drea Sandhu, VAMSI who said that they do not anticipate any beds over the weekend. Reviewed with patient/ that they need to be aware that patient will need to take the first bed offered at the facilities that they make referrals to. Their choices are: 1- [facility] PHONE: [phone] FAX: [phone] 2- [facility] ([facility]) [address] [place] [address] 3- [facility]) [address] [place] [address] I have discussed Medicare/Private Insurance [...] RS/CM on Wednesday to follow-up. Covering pager #[phone] for today. Plan of Care - Henrique [...] with additional findings of pseudoaneurysm on R RABBET OPERATOR and bilateral anterior tibial artery occlusions. [...] an outpatient once discharged. Have patient call [phone] to set up an appointment. Follow-up: Dermatology will sign-off for now. Please do not hesitate to contact us if you have any questions orconcerns. Impression and Recommendations discussed with primary team on 08/13/2017. Karo Henderson MD Resident in Dermatology Section of Dermatology, Department of Surgery [facility] Pager [phone] Patient seen and evaluated with staff Supervisor Propellant Charge Loading: Halima Cordero MD Section of Dermatology [facility] Level of Resident Supervision: [...] Outcome: Ongoing (Interventions Implemented as Appropriate) 08/12/17 4906 Coping/Psychosocial Plan Of Care Reviewed With patient;spouse [...] 2.5x80 5. Completion RLE angiogram 6. L RABBET OPERATOR angiogram 7. Mynx closure Active Non-Hospital [...] home with home health ([facility] PT[facility]OT) Pager: [phone] YASIR TELLO OT 08/12/2017 Occupational Therapy Rehabilitation [...] 2.5x80 5. Completion RLE angiogram 6. L RABBET OPERATOR angiogram 7. Mynx closure Past Medical [...] with 24/7 assistance and maximal services) Pager: [phone] NICHOLAS MORA, PT 08/12/2017 Physical Therapy Rehabilitation [...] sit/sit to supine -- Bed Mobility Goal, [place] Level independent -- Bed Mobility Goal, Outcome Achieved -- goal ongoing Goal: Gait Training Goal Stand Alone Therapy Goal Outcome: Ongoing (Interventions Implemented as Appropriate) 08/11/17 1310 08/12/17 1510 Gait Training Goal Gait Training Goal, Date Established 08/11/17 -- Gait Training Goal, Time to Achieve 5 - 7 days -- Gait Training Goal, [place] Level conditional independence -- Gait Training Goal, [...] days -- Transfer Training Goal, Activity Type xis-du-duklm/bvpdr-ac-chv -- Transfer Train Goal, [place] Level conditional independence -- Transfer Training Goal, [...] Smith MD - 08/11/2017 2:52 PM EST [facility] Operative Note Patient Name: Gregory Hoang : [id number] MR#: [id number] Case Date: 08/11/2017 Surgeon: Surgeon(s) and Role: [...] 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 Completion RLE angiogram 6. L RABBET OPERATOR angiogram 7. Mynx closure He is [...] Anticipated Discharge Disposition: inpatient rehabilitation facility Pager: [phone] LAWRENCE GONZALEZ, PT 08/11/2017 Physical Therapy Rehabilitation [...] to sit/sit to supine Bed Mobility Goal, [place] Level independent Goal: Gait Training Goal Stand Alone Therapy Goal Outcome: Ongoing (Interventions Implemented as Appropriate) 08/11/17 1310 Gait Training Goal Gait Training Goal, Date Established 08/11/17 Gait Training Goal, Time to Achieve 5 - 7 days Gait Training Goal, [place] Level conditional independence Gait Training Goal, Assist [...] 7 days Transfer Training Goal, Activity Type you-uz-jssqm/snpke-kw-kcx Transfer Train Goal, [place] Level conditional independence Plan of David DelloAnnetta [...] call cabello within reach, Hourly rounding by RN/OCEAN IMPORT REPRESENTATIVE. Bed alarm / Chair alarm. ? Patient-specific [...] 04/05/2013 Hospitalizations Within the Past 30 Days: [facility] 07/20/2017 Anticipated Length Of Stay (If known): Expected Length of Hospitalization: 5-7 days2-3 days Current Decision-Making Capacity: Alert and oriented x 4 Advance Care Planning: on file Kisha Hoang [facility] [phone] Current Coping/Education/Information Needs: pt and spouse state [...] Health/Prescription Coverage: Primary Insurance: MEDICARE Secondary Insurance: [employer] [place] Prescription Coverage: See above Preferred Pharmacy: [facility] Other: N/A Primary Care Provider: Lovely Vicente MD [phone] Patient/Caregiver Goals of Treatment: Patient plans to [...] of care planning. Kaitlin Saha RN Pager: [phone] Plan of Care - Melba Jaramillo RN [...] Overview Goal: Plan of Care Review 08/08/17 1364 Coping/Psychosocial Plan Of Care Reviewed With patient [...] call cabello within reach, Hourly rounding by RN/OCEAN IMPORT REPRESENTATIVE. Bed alarm / Chair alarm. Patient-specific fall prevention interventions for sensory deficits provided, if applicable: [X] Yes CPG GOAL OUTCOME EVALUATION: Goal: Fall Prevention-Safe Patient Handling Outcome: Ongoing (Interventions Implemented as Appropriate) 08/06/17 1700 08/06/17199908/07/17 7904 Positioning Body Position -- up in chair [...] at bedside and MD TEAM Carrying pager [phone] contacted (via Radio page) and notified of [...] MD [facility] ER [address], [place] [address] (Wo rk) 06/10/2022 Office Visit Dermatology Laura Scherer MD [facility] [address], [place] [address] (Wo rk) documented as of [...] section. TYPE AND SCREEN Routine 08/09/2017 1:10 ([facility]/CGP/SHANDA) AM EST BASIC METABOLIC PANEL Routine 08/09/2017 [...] POC Glucose 160 65 - 199 [facility] mg/dL [facility] Comment: Supplemental ranges: <140 mg/dL before meals <180 mg/dL all other times of the day Specimen Anatomical Collection Method Collection Time Receive d Time (Source) Location / / Volume Laterality Blood specimen 08/16/2017 7:28 AM 018 7:28 (specimen) EST AM EST Yonathan Smith MD POINT OF CARE TEST ORDERABLE S Performing Organization Address City/State/ZIP Code Phon e Number [facility] [place] [address] (ABNORMAL) Differential, Automated (08/16/2017 5:08 AM EST) Patholo gist Method Time Signature Neutrophils % 73.9 % [facility] Neutr Abs (ANC) 5.37 1.70 - [facility] 6.10 [facility] x10(3)/[facility] LABORATORY Lymphocytes % 10.1 % [facility] Lymphocytes Abs 0.7 (L) 0.9 - 3.2 [facility] x10(3)/[facility] LABORATORY Monocytes % 10.1 % [facility] Monocyte Abs 0.7 0.3 - 0.9 [facility] x10(3)/[facility] LABORATORY Eosinophils % 5.1 % [facility] Eosinophils Abs 0.4 0.0 - 0.4 [facility] x10(3)/[facility] LABORATORY Basophils % 0.4 % [facility] Basophils Abs 0.0 0.0 - 0.1 [facility] x10(3)/[facility] LABORATORY Immature Gran % 0.40 % [facility] [...] Melisa Gran Abs 0.03 0.00 - 0.04 x10(3)/[facility] MAR Y [facility] Specimen Anatomical Collection Method Collection Time Receive d Time (Source) Location / / Volume Laterality Blood specimen 08/16/2017 5:08 AM 018 5:20 (specimen) EST AM EST Resulting Agency Comment Spec In Lab Yonathan Smith MD HEMATOLOGY ORDERABLES Performing Organization Address City/State/[place] [address] (ABNORMAL) Hemogram (08/16/2017 5:08 AM EST) Analysis Performed At Patho logist Time Signature WBC 7.3 4.0 - 9.5 [facility] x10(3)/[facility] LABORATORY RBC 3.36 (L) 4.58 - [facility] 5.54 [facility] x10(6)/[facility] LABORATORY Hemoglobin 9.7 (L) 13.7 - [facility] 16.5 gm/dL [facility] Hematocrit 30.3 (L) 40.5 - [facility] 48.5 % [facility] MCV 90.2 82.9 - BARBARA OLIVASCK 93.1 [facility] LABORATORY MCH 28.9 27.5 - BARBARA OLIVASCK 32.1 pg [facility] MCHC 32.0 32.0 - BARBARA DAVIS 35.7 gm/dL [facility] Platelets 282 145 - 357 [facility] x10(3)/[facility] LABORATORY RDWSD 53.9 (H) 36.0 - BARBARA OLIVASCK 45.0 [facility] LABORATORY RDWCV 16.5 (H) 11.4 - BARBARA RYAN 13.8 % [facility] MPV 9.0 7.6 - 12.9 [facility] LABORATORY nRBC % Auto 0.0 % [facility] nRBC Abs Auto 0.000 0.000 - BARBARA ZHAORYAN 0.000 [facility] x10(3)/[facility] LABORATORY Specimen Anatomical Collection Method Collection Time Receive d Time (Source) Location / / Volume Laterality Blood specimen 08/16/2017 5:08 AM 018 5:20 (specimen) EST AM EST Resulting Agency Comment Spec In Lab Yonathan Smith MD HEMATOLOGY ORDERABLES Performing Organization Address City/State/[place] [address] (ABNORMAL) Basic Metabolic Panel (non-fasting) (08/16/2017 5:08 AM EST) P athologist Signature Glucose Lvl 141 65 - 199 [facility] mg/dL [facility] Comment: Diabetes: >=200 mg/dL plus [...] LABORATORY Calcium 8.7 8.5 - 10.5 mg/dL [facility] Estimated GFR 57 (L) >=60 [facility] Comment: The reported eGFR should be multiplied b y 1.2 for patients. The MDRD is not an appropriate measure o f renal function for patients with body mass extremes or in patients with acute kidney failure. [email or web address] Specimen Anatomical Collection Method Collection Time Receive d Time (Source) Location / / Volume Laterality Blood specimen 08/16/2017 5:08 AM 018 5:20 (specimen) EST AM EST Resulting Agency Comment Spec In Lab Yonathan Smith MD CHEMISTRY ORDERABLES Performing Organization Address City/State/[facility] [place] [address] (ABNORMAL) Prothrombin Time (08/16/2017 [...] Organization Address City/State/ZIP Code Phon e Number [address] POCT Glucose (08/16/2017 4:09 AM EST) athologist Signature POC Glucose 147 65 - 199 [place] mg/dL [facility] Comment: Supplemental ranges: <140 mg/dL [...] [facility] [place]/ZIP Code Phon e Number [address] POCT Glucose (08/15/2017 11:56 PM EST) athologist Signature POC Glucose 176 65 - 199 [place] mg/dL [facility] Comment: Supplemental ranges: <140 mg/dL before meals <180 mg/dL all other times of the day Specimen Anatomical Collection Method Collection Time Receive d Time (Source) Location / / Volume Laterality Blood specimen 08/15/2017 11:56 8 (specimen) PM EST 11:56 PM EST Yonathan Smith MD POINT OF CARE TEST ORDERABLE S Performing Organization Address City/State/ZIP Code Phon e Number [place], [place] [id number] [place] [address] POCT Glucose (08/15/2017 8:05 PM EST) athologist Signature POC Glucose 136 65 - 199 [place] mg/dL [facility] Comment: Supplemental ranges: <140 mg/dL before meals <180 mg/dL all other times of the day Specimen Anatomical Collection Method Collection Time Receive d Time (Source) Location / / Volume Laterality Blood specimen 08/15/2017 8:05 PM 018 8:05 (specimen) EST PM EST Yonathan Smith MD POINT OF CARE TEST ORDERABLE S Performing Organization Address City/State/ZIP Code [place] [address] (ABNORMAL) POCT Glucose (08/15/2017 4:50 PM EST) athologist Signature POC Glucose 232 (H) 65 - 199 [place] mg/dL [facility] Comment: Supplemental ranges: <140 mg/dL before meals <180 mg/dL all other times of the day Specimen Anatomical Collection Method Collection Time Receive d Time (Source) Location / / Volume Laterality Blood specimen 08/15/2017 4:50 PM 018 4:50 (specimen) EST PM EST Yonathan Smith MD POINT OF CARE TEST ORDERABLE S Performing Organization Address City/State/ZIP Code Phon e Number [address] POCT Glucose (08/15/2017 12:04 PM EST) athologist Signature POC Glucose 135 65 - 199 [facility] Comment: Supplemental ranges: <140 mg/dL before meals <180 mg/dL all other times of the day Specimen Anatomical Collection Method Collection Time Receive d Time (Source) Location / / Volume Laterality Blood specimen 08/15/2017 12:04 8 (specimen) PM EST 12:04 PM EST Yonathan Smith MD POINT OF CARE TEST ORDERABLE S Performing Organization Address City/State/[place] [address] POCT Glucose (08/15/2017 7:36 AM EST) athologist Signature POC Glucose 124 65 - 199 [place] mg/dL [facility] Comment: Supplemental ranges: <140 mg/dL before meals <180 mg/dL all other times of the day Specimen Anatomical Collection Method Collection Time Receive d Time (Source) Location / / Volume Laterality Blood specimen 08/15/2017 7:36 AM 018 7:36 (specimen) EST AM EST Yonathan Smith MD POINT OF CARE TEST ORDERABLE S Performing Organization Address City/State/[place] [address] (ABNORMAL) Differential, Automated (08/15/2017 6:22 AM EST) Patholo gist Method Time Signature Neutrophils % 76.1 % [facility] Neutr Abs (ANC) 6.62 (H) 1.70 - [facility] 6.10 [facility] x10(3)/[facility] LABORATORY Lymphocytes % 9.3 % [facility] Lymphocytes Abs 0.8 (L) 0.9 - 3.2 [facility] x10(3)/[facility] LABORATORY Monocytes % 9.4 % [facility] Monocyte Abs 0.8 0.3 - 0.9 [facility] x10(3)/[facility] LABORATORY Eosinophils % 4.0 % [facility] Eosinophils Abs 0.4 0.0 - 0.4 [facility] x10(3)/[facility] LABORATORY Basophils % 0.6 % [facility] Basophils Abs 0.0 0.0 - 0.1 [facility] x10(3)/[facility] LABORATORY Immature Gran % 0.60 % [...] Organization Address City/State/ZIP Code Phon e Number [address] (ABNORMAL) Hemogram (08/15/2017 6:22 AM EST) Analysis Performed At Patho logist Time Signature WBC 8.7 4.0 - 9.5 [facility] x10(3)/[facility] LABORATORY RBC 3.21 (L) 4.58 - [place] [facility] 5.54 [facility] x10(6)/[facility] LABORATORY Hemoglobin 9.1 (L) 13.7 - [facility] 16.5 gm/dL [facility] Hematocrit 29.0 (L) 40.5 - [place] 48.5 % [facility] MCV 90.3 82.9 - [facility] 93.1 [facility] LABORATORY MCH 28.3 27.5 - [facility] 32.1 pg [facility] MCHC 31.4 (L) 32.0 - [place] 35.7 gm/dL [facility] Platelets 254 145 - 357 [facility] x10(3)/[facility] LABORATORY RDWSD 53.9 (H) 36.0 - [facility] 45.0 [facility] LABORATORY RDWCV 16.3 (H) 11.4 - [facility] 13.8 % [facility] MPV 8.8 7.6 - 12.9 [facility] LABORATORY nRBC % Auto 0.0 % [facility] nRBC Abs Auto 0.000 0.000 - [facility] 0.000 [facility] x10(3)/[facility] LABORATORY Specimen Anatomical Collection Method Collection Time Receive d Time (Source) Location / / Volume Laterality Blood specimen 08/15/2017 6:22 AM 018 6:33 (specimen) EST AM EST Resulting Agency Comment Spec In Lab Yonathan Smith MD HEMATOLOGY ORDERABLES Performing Organization Address City/State/[place]IP [place] [address] (ABNORMAL) Basic Metabolic Panel (non-fasting) (08/15/2017 6:22 AM EST) P athologist Signature Glucose Lvl 118 65 - 199 [facility] mg/dL [facility] Comment: Diabetes: >=200 mg/dL plus [...] or in patients with acute kidney failure. [email or web address] Specimen Anatomical Collection Method Collection Time Receive d Time (Source) Location / / Volume Laterality Blood specimen 08/15/2017 6:22 AM 018 6:33 (specimen) EST AM EST Resulting Agency Comment Spec In Lab Yonathan Smith MD CHEMISTRY ORDERABLES Performing Organization Address City/State/[place] [address] (ABNORMAL) Prothrombin Time (08/15/2017 [...] Organization Address City/State/ZIP Code Phon e Number [address] POCT Glucose (08/15/2017 4:33 AM EST) athologist Signature POC Glucose 164 65 - 199 [place] mg/dL [facility] Comment: Supplemental ranges: <140 mg/dL [...] [facility] [place]/ZIP Code Phon e Number [address] POCT Glucose (08/15/2017 12:12 AM EST) athologist Signature POC Glucose 89 65 - 199 [place] mg/dL [facility] Comment: Supplemental ranges: <140 mg/dL [...] [facility] [place]/ZIP Code Phon e Number [address] (ABNORMAL) POCT Glucose (08/14/2017 8:07 PM EST) athologist Signature POC Glucose 204 (H) 65 - 199 [place] mg/dL [facility] Comment: Supplemental ranges: <140 mg/dL before meals <180 mg/dL all other times of the day Specimen Anatomical Collection Method Collection Time Receive d Time (Source) Location / / Volume Laterality Blood specimen 08/14/2017 8:07 PM 018 8:07 (specimen) EST PM EST Yonathan Smith MD POINT OF CARE TEST ORDERABLE S Performing Organization Address City/State/ZIP Code Phon e Number [address] POCT Glucose (08/14/2017 5:11 PM EST) athologist Signature POC Glucose 174 65 - 199 [place] mg/dL [facility] Comment: Supplemental ranges: <140 mg/dL before meals <180 mg/dL all other times of the day Specimen Anatomical Collection Method Collection Time Receive d Time (Source) Location / / Volume Laterality Blood specimen 08/14/2017 5:11 PM 018 5:11 (specimen) EST PM EST Yonathan Smith MD POINT OF CARE TEST ORDERABLE S Performing Organization Address City/State/ZIP Code Phon e Number [address] POCT Glucose (08/14/2017 12:10 PM EST) athologist Signature POC Glucose 141 65 - 199 [place] mg/dL [facility] Comment: Supplemental ranges: <140 mg/dL before meals <180 mg/dL all other times of the day Specimen Anatomical Collection Method Collection Time Receive d Time (Source) Location / / Volume Laterality Blood specimen 08/14/2017 12:10 8 (specimen) PM EST 12:10 PM EST Yonathan Smith MD POINT OF CARE TEST ORDERABLE S Performing Organization Address City/State/ZIP Code Phon e Number [address] POCT Glucose (08/14/2017 8:07 AM EST) athologist Signature POC Glucose 158 65 - 199 [place] mg/dL [facility] Comment: Supplemental ranges: <140 mg/dL before meals <180 mg/dL all other times of the day Specimen Anatomical Collection Method Collection Time Receive d Time (Source) Location / / Volume Laterality Blood specimen 08/14/2017 8:07 AM 018 8:07 (specimen) EST AM EST Yonathan Smith MD POINT OF CARE TEST ORDERABLE S Performing Organization Address City/State/[place] [address] (ABNORMAL) Differential, Automated (08/14/2017 4:52 AM EST) [facility] Method Time Signature Neutrophils % 78.6 % [facility] Neutr Abs (ANC) 7.70 (H) 1.70 - [facility] 6.10 [facility] x10(3)/[facility] L LABORATORY Lymphocytes % 7.8 % [facility] Lymphocytes Abs 0.8 (L) 0.9 - 3.2 [facility] x10(3)/[facility] LABORATORY Monocytes % 8.8 % [facility] Monocyte Abs 0.9 0.3 - 0.9 [facility] x10(3)/[facility] LABORATORY Eosinophils % 4.0 % [facility] Eosinophils Abs 0.4 0.0 - 0.4 [facility] x10(3)/[facility] LABORATORY Basophils % 0.5 % [facility] Basophils Abs 0.0 0.0 - 0.1 [facility] x10(3)/[facility] LABORATORY Immature Gran % 0.30 % [...] 0.03 0.00 - 0.04 x10(3)/[facility] Specimen Anatomical Collection Method Collection Time Receive d Time (Source) Location / / Volume Laterality Blood specimen 08/14/2017 4:52 AM 018 5:08 (specimen) EST AM EST Resulting Agency Comment Spec In Lab Yonathan Smith MD HEMATOLOGY ORDERABLES Performing Organization Address City/State/ZIP Code Phon e Number [address] (ABNORMAL) Hemogram (08/14/2017 4:52 AM EST) Analysis Performed At Patho logist Time Signature WBC 9.8 (H) 4.0 - 9.5 [facility] x[facility](3[facility] LABORATORY RBC 3.32 (L) 4.58 - [place] 5.54 [facility] x10(6)/[facility] LABORATORY Hemoglobin 9.5 (L) 13.7 - [facility] 16.5 gm/dL [facility] Hematocrit 30.3 (L) 40.5 - [facility] 48.5 % [facility] MCV 91.3 82.9 - [facility] 93.1 [facility] LABORATORY MCH 28.6 27.5 - [facility] 32.1 pg [facility] MCHC 31.4 (L) 32.0 - [facility] 35.7 gm/dL [facility] Platelets 263 145 - 357 [facility] x10(3)/[facility] LABORATORY RDWSD 54.8 (H) 36.0 - [facility] 45.0 [facility] LABORATORY RDWCV 16.5 (H) 11.4 - [facility] 13.8 % [facility] MPV 9.1 7.6 - 12.9 [facility] nRBC % Auto 0.0 % [facility] nRBC Abs Auto 0.000 0.000 - [place] 0.000 [facility] x10(3)/[facility] LABORATORY Specimen Anatomical Collection Method Collection Time Receive d Time (Source) Location / / Volume Laterality Blood specimen 08/14/2017 4:52 AM 018 5:08 (specimen) EST AM EST Resulting Agency Comment Spec In Lab Yonathan Smith MD HEMATOLOGY ORDERABLES Performing Organization Address City/State/[place] [address] (ABNORMAL) Prothrombin Time (08/14/2017 [...] Organization Address City/State/[place] [address] (ABNORMAL) Basic Metabolic Panel (non-fasting) (08/14/2017 4:52 AM EST) athologist Signature Glucose Lvl 135 65 - 199 [facility] mg/dL [facility] Comment: Diabetes: >=200 mg/dL plus symp toms BUN 25 (H) 10 - 20 mg/dL [facility] Creatinine 1.36 0.80 - 1.50 mg/dL [facility] Sodium 141 135 - 145 mmol/L [facility] Potassium 4.8 3.5 - 5.0 mmol/L [facility] [...] or in patients with acute kidney failure. [email or web address] Specimen Anatomical Collection Method Collection Time Receive d Time (Source) Location / / Volume Laterality Blood specimen 08/14/2017 4:52 AM 018 5:08 (specimen) EST AM EST Resulting Agency Comment Spec In Lab Yonathan Smith MD CHEMISTRY ORDERABLES Performing Organization Address City/[facility]/ZIP [facility] Phon e Number [address] POCT Glucose (08/14/2017 3:56 AM EST) P athologist Signature POC Glucose 135 65 - 199 [facility]dL [facility] Comment: Supplemental ranges: <140 mg/dL [...] [facility] [place]/ZIP Code Phon e Number [address] POCT Glucose (08/13/2017 11:13 PM EST) athologist Signature POC Glucose 118 65 - 199 [facility]dL [facility] Comment: Supplemental ranges: <140 mg/dL before meals <180 mg/dL all other times of the day Specimen Anatomical Collection Method Collection Time Receive d Time (Source) Location / / Volume Laterality Blood specimen 08/13/2017 11:13 8 (specimen) PM EST 11:13 PM EST Yonathan Smith MD POINT OF CARE TEST ORDERABLE S Performing Organization Address City/State/[place] [address] (ABNORMAL) POCT Glucose (08/13/2017 8:08 PM EST) athologist Signature POC Glucose 204 (H) 65 - 199 [place] mg/dL [facility] Comment: Supplemental ranges: <140 mg/dL [...] [facility] [place] [address] POCT Glucose (08/13/2017 4:02 PM EST) athologist Signature POC Glucose 145 65 - 199 [place] mg/dL [facility] Comment: Supplemental ranges: <140 mg/dL before meals <180 mg/dL all other times of the day Specimen Anatomical Collection Method Collection Time Receive d Time (Source) Location / / Volume Laterality Blood specimen 08/13/2017 4:02 PM 018 4:02 (specimen) EST PM EST Yonathan Smith MD POINT OF CARE TEST ORDERABLE S Performing Organization Address City/State/[place] [address] POCT Glucose (08/13/2017 11:31 AM EST) athologist Signature POC Glucose 179 65 - 199 [place] mg/dL [facility] Comment: Supplemental ranges: <140 mg/dL before meals <180 mg/dL all other times of the day Specimen Anatomical Collection Method Collection Time Receive d Time (Source) Location / / Volume Laterality Blood specimen 08/13/2017 11:31 8 (specimen) AM EST 11:31 AM EST Yonathan Smith MD POINT OF CARE TEST ORDERABLE S Performing Organization Address City/State/[place] [address] (ABNORMAL) POCT Glucose (08/13/2017 10:16 AM EST) P athologist Signature POC Glucose 211 (H) 65 - 199 [place] mg/dL [facility] Comment: Supplemental ranges: <140 mg/dL before meals <180 mg/dL all other times of the day Specimen Anatomical Collection Method Collection Time Receive d Time (Source) Location / / Volume Laterality Blood specimen 08/13/2017 10:16 8 (specimen) AM EST 10:16 AM EST Yonathan Smith MD POINT OF CARE TEST ORDERABLE S Performing Organization Address City/State/[place] [address] JULIAN, legs, multiple levels (08/13/2017 7:42 AM EST) Component Value Ref Test Analysis Performed At Patholo gist Range Method Time Signature VB Text Department: Vascular Surgery Lab VASCUBASE Report Patient: [id number] (GREGORY HOANG) CPT: 67850 ICD10: I99.8 Referring Physician: YONATHAN SMITH ?? Indications: s/p R 1,2,3 toe amps with red left foot, need n ew baseline Diabetes mellitus: yes ICD10 Diagnosis Code: I99.8 Findings: Right ?Pressure (mm Hg) ?? JULIAN ??Waveform ?TBI ?? Brachial Artery ?138 ? Dorsalis Pedis (Ankle) Arter y ?132 ? 0.94 ??[place]- Biphasic ? Posterior Tibial (Ankle) Art anila ??154 ? 1.10 ??[place]-Biphasic ? Fourth Toe ? 67 ? 0.48 [...] POC Glucose 156 65 - 199 [facility] mg/dL [facility] Comment: Supplemental ranges: <140 mg/dL before meals <180 mg/dL all other times of the day Specimen Anatomical Collection Method Collection Time Receive d Time (Source) Location / / Volume Laterality Blood specimen 08/13/2017 7:33 AM 018 7:33 (specimen) EST AM EST Yonathan Smith MD POINT OF CARE TEST ORDERABLE S Performing Organization Address City/State/[place] [address] (ABNORMAL) Differential, Automated (08/13/2017 5:33 AM EST) Patholo gist Method Time Signature Neutrophils % 77.8 % [facility] Neutr Abs (ANC) 7.83 (H) 1.70 - [facility] 6.10 [facility] x10(3)/[facility] L LABORATORY Lymphocytes % 8.4 % [facility] Lymphocytes Abs 0.8 (L) 0.9 - 3.2 [facility] x10(3)/[facility] LABORATORY Monocytes % 8.3 % [facility] Monocyte Abs 0.8 0.3 - 0.9 [facility] x10(3)/[facility] LABORATORY Eosinophils % 4.6 % [facility] Eosinophils Abs 0.5 (H) 0.0 - 0.4 [facility] x10(3)/[facility] LABORATORY Basophils % 0.5 % [facility] Basophils Abs 0.0 0.0 - 0.1 [facility] x10(3)/[facility] LABORATORY Immature Gran % 0.40 % [...] Melisa Gran Abs 0.04 0.00 - 0.04 x10(3)/[facility] MAR Y [facility] Specimen Anatomical Collection Method Collection Time Receive d Time (Source) Location / / Volume Laterality Blood specimen 08/13/2017 5:33 AM 018 6:04 (specimen) EST AM EST Resulting Agency Comment Spec In Lab Yonathan Smith MD HEMATOLOGY ORDERABLES Performing Organization Address City/State/Z[place] [address] (ABNORMAL) Hemogram (08/13/2017 5:33 AM EST) Analysis Performed At Patho logist Time Signature WBC 10.1 (H) 4.0 - 9.5 [facility] x10(3)/[facility] LABORATORY RBC 3.21 (L) 4.58 - [facility] 5.54 [facility] x10(6)/[facility] LABORATORY Hemoglobin 9.2 (L) 13.7 - [facility] 16.5 gm/dL [facility] Hematocrit 29.6 (L) 40.5 - [facility] 48.5 % [facility] MCV 92.2 82.9 - [facility] 93.1 [facility] LABORATORY MCH 28.7 27.5 - [facility] 32.1 pg [facility] MCHC 31.1 (L) 32.0 - [place] 35.7 gm/dL [facility] Platelets 263 145 - 357 [facility] x10(3)/[facility] LABORATORY RDWSD 54.8 (H) 36.0 - [place] RYAN 45.0 [facility] LABORATORY RDWCV 16.4 (H) 11.4 - [facility] RYAN 13.8 % [facility] MPV 9.2 7.6 - 12.9 [facility] LABORATORY nRBC % Auto 0.0 % [facility] nRBC Abs Auto 0.000 0.000 - [place] RY[place] 0.000 [facility] x10(3)/[facility] LABORATORY Specimen Anatomical Collection Method Collection Time Receive d Time (Source) Location / / Volume Laterality Blood specimen 08/13/2017 5:33 AM 018 6:04 (specimen) EST AM EST Resulting Agency Comment Spec In Lab Yonathan Smith MD HEMATOLOGY ORDERABLES Performing Organization Address City/State/ZIP Code Phon e Number [place] [id number]OS[address] LAB[address]ORY [address] (ABNORMAL) Prothrombin Time (08/13/2017 [...] [facility] [place] [address] (ABNORMAL) Basic Metabolic Panel (non-fasting) (08/13/2017 5:33 AM EST) P athologist Signature Glucose Lvl 126 65 - 199 [facility] mg/dL [facility] Comment: Diabetes: >=200 mg/dL plus [...] Calcium 7.9 (L) 8.5 - 10.5 mg/dL [facility] Estimated GFR >60 >=60 [facility] Comment: The reported eGFR should be multiplied b y 1.2 for patients. The MDRD is not an appropriate measure o f renal function for patients with body mass extremes or in patients with acute kidney failure. [email or web address] Specimen Anatomical Collection Method Collection Time Receive d Time (Source) Location / / Volume Laterality Blood specimen 08/13/2017 5:33 AM 018 6:04 (specimen) EST AM EST Resulting Agency Comment Spec In Lab Yonathan Smith MD CHEMISTRY ORDERABLES Performing Organization Address City/State/[place] [address] POCT Glucose (08/13/2017 4:29 AM EST) athologist Signature POC Glucose 111 65 - 199 [facility] mg/dL [facility] Comment: Supplemental ranges: <140 mg/dL [...] [facility] [place]/ZIP Code Phon e Number [address] POCT Glucose (08/12/2017 11:28 PM EST) athologist Signature POC Glucose 164 65 - 199 [facility] mg/dL [facility] Comment: Supplemental ranges: <140 mg/dL before meals <180 mg/dL all other times of the day Specimen Anatomical Collection Method Collection Time Receive d Time (Source) Location / / Volume Laterality Blood specimen 08/12/2017 11:28 8 (specimen) PM EST 11:28 PM EST Yonathan Smith MD POINT OF CARE TEST ORDERABLE S Performing Organization Address City/State/[place] [address] (ABNORMAL) POCT Glucose (08/12/2017 7:40 PM EST) athologist Signature POC Glucose 209 (H) 65 - 199 [place] RYAN mg/dL [facility] Comment: Supplemental ranges: <140 mg/dL before meals <180 mg/dL all other times of the day Specimen Anatomical Collection Method Collection Time Receive d Time (Source) Location / / Volume Laterality Blood specimen 08/12/2017 7:40 PM 018 7:40 (specimen) EST PM EST Yonathan Smith MD POINT OF CARE TEST ORDERABLE S Performing Organization Address City/State/[place] [address] POCT Glucose (08/12/2017 4:24 PM EST) athologist Signature POC Glucose 161 65 - 199 [place]BAR[place] RYAN mg/dL [facility] Comment: Supplemental ranges: <140 mg/dL before meals <180 mg/dL all other times of the day Specimen Anatomical Collection Method Collection Time Receive d Time (Source) Location / / Volume Laterality Blood specimen 08/12/2017 4:24 PM 018 4:24 (specimen) EST PM EST Yonathan Smith MD POINT OF CARE TEST ORDERABLE S Performing Organization Address City/State/ZIP Code Phon e Number [address] POCT Glucose (08/12/2017 12:00 PM EST) athologist Signature POC Glucose 167 65 - 199 [facility] RYAN mg/dL [facility] Comment: Supplemental ranges: <140 mg/dL before meals <180 mg/dL all other times of the day Specimen Anatomical Collection Method Collection Time Receive d Time (Source) Location / / Volume Laterality Blood specimen 08/12/2017 12:00 8 (specimen) PM EST 12:00 PM EST Yonathan Smith MD POINT OF CARE TEST ORDERABLE S Performing Organization Address City/State/[place] [address] POCT Glucose (08/12/2017 7:25 AM EST) athologist Signature POC Glucose 152 65 - 199 BARBARA ZHAORYAN mg/dL [facility] Comment: Supplemental ranges: <140 mg/dL before meals <180 mg/dL all other times of the day Specimen Anatomical Collection Method Collection Time Receive d Time (Source) Location / / Volume Laterality Blood specimen 08/12/2017 7:25 AM 018 7:25 (specimen) EST AM EST Yonathan Smith MD POINT OF CARE TEST ORDERABLE S Performing Organization Address City/State/[place] [address] (ABNORMAL) Differential, Automated (08/12/2017 6:29 AM EST) Patholo gist Method Time Signature Neutrophils % 78.7 % [facility] Neutr Abs (ANC) 7.94 (H) 1.70 - [facility] 6.10 [facility] x10(3)/[facility] LABORATORY Lymphocytes % 8.8 % [facility] Lymphocytes Abs 0.9 0.9 - 3.2 [facility] x10(3)/[facility] LABORATORY Monocytes % 7.8 % [facility] Monocyte Abs 0.8 0.3 - 0.9 [facility] x10(3)/[facility] LABORATORY Eosinophils % 3.9 % [facility] Eosinophils Abs 0.4 0.0 - 0.4 [facility] x10(3)/[facility] LABORATORY Basophils % 0.3 % [facility] Basophils Abs 0.0 0.0 - 0.1 [facility] x10(3)/[facility] LABORATORY Immature Gran % 0.50 % [...] Organization Address City/State/[place] [address] (ABNORMAL) Hemogram (08/12/2017 6:29 AM EST) Analysis Performed At Patho logist Time Signature WBC 10.1 (H) 4.0 - 9.5 [facility] x10(3)/[facility] LABORATORY RBC 3.02 (L) 4.58 - [facility] RYAN 5.54 [facility] x10(6)/[facility] LABORATORY Hemoglobin 8.7 (L) 13.7 - [facility] 16.[facility] gm/dL [facility] Hematocrit 28.1 (L) 40.5 - [facility] 48.5 % [facility] MCV 93.0 82.9 - [facility] 93.1 [facility] LABORATORY MCH 28.8 27.5 - [facility] 32.1 pg [facility] MCHC 31.0 (L) 32.0 - [facility] 35.7 gm/dL [facility] Platelets 223 145 - 357 [facility] x10(3)/[facility] LABORATORY RDWSD 56.1 (H) 36.0 - [facility] 45.0 [facility] LABORATORY RDWCV 16.4 (H) 11.4 - [facility] 13.8 % [facility] MPV 9.0 7.6 - 12.9 [facility] LABORATORY nRBC % Auto 0.0 % [facility] nRBC Abs Auto 0.000 0.000 - [facility] 0.000 [facility] x10(3)/[facility] LABORATORY Specimen Anatomical Collection Method Collection Time Receive d Time (Source) Location / / Volume Laterality Blood specimen 08/12/2017 6:29 AM 018 6:38 (specimen) EST AM EST Resulting Agency Comment Spec In Lab Yonathan Smith MD HEMATOLOGY ORDERABLES Performing Organization Address City/State/[place] [address] (ABNORMAL) Prothrombin Time (08/12/2017 [...] Organization Address City/State/[place] [address] (ABNORMAL) Basic Metabolic Panel (non-fasting) (08/12/2017 6:29 AM EST) P athologist Signature Glucose Lvl 151 65 - 199 [facility] mg/dL [facility] Comment: Diabetes: >=200 mg/dL plus [...] Calcium 7.9 (L) 8.5 - 10.5 mg/dL [facility] Estimated GFR >60 >=60 [facility] Comment: The reported eGFR should be multiplied b y 1.2 for patients. The MDRD is not an appropriate measure o f renal function for patients with body mass extremes or in patients with acute kidney failure. [email or web address] [email or web address] Specimen Anatomical Collection Method Collection Time Receive d Time (Source) Location / / Volume Laterality Blood specimen 08/12/2017 6:29 AM 018 6:38 (specimen) EST AM EST Resulting Agency Comment Spec In Lab Yonathan Smith MD CHEMISTRY ORDERABLES Performing Organization Address City/State/ZIP Code Phon e Number [address] POCT Glucose (08/12/2017 4:08 AM EST) athologist Signature POC Glucose 181 65 - 199 [facility] Comment: Supplemental ranges: <140 mg/dL [...] [facility] [place] [address] (ABNORMAL) POCT Glucose (08/12/2017 12:17 AM EST) athologist Signature POC Glucose 221 (H) 65 - 199 [place] RYAN mg/dL [facility] Comment: Supplemental ranges: <140 mg/dL [...] [facility] [place]/ZIP Code Phon e Number [address] (ABNORMAL) POCT Glucose (08/11/2017 8:52 PM EST) athologist Signature POC Glucose 221 (H) 65 - 199 [place] RYAN mg/dL [facility] Comment: Supplemental ranges: <140 mg/dL before meals <180 mg/dL all other times of the day Specimen Anatomical Collection Method Collection Time Receive d Time (Source) Location / / Volume Laterality Blood specimen 08/11/2017 8:52 PM 018 8:52 (specimen) EST PM EST Yonathan Smith MD POINT OF CARE TEST ORDERABLE S Performing Organization Address City/State/[place] [address] POCT Glucose (08/11/2017 5:59 PM EST) athologist Signature POC Glucose 169 65 - 199 BARBARA ZHAORYAN mg/dL [facility] Comment: Supplemental ranges: <140 mg/dL before meals <180 mg/dL all other times of the day Specimen Anatomical Collection Method Collection Time Receive d Time (Source) Location / / Volume Laterality Blood specimen 08/11/2017 5:59 PM 018 5:59 (specimen) EST PM EST Yonathan Smith MD POINT OF CARE TEST ORDERABLE S Performing Organization Address City/State/[place] [address] (ABNORMAL) POCT Glucose (08/11/2017 4:08 PM EST) athologist Signature POC Glucose 240 (H) 65 - 199 [place] RYAN mg/dL [facility] Comment: Supplemental ranges: <140 mg/dL before meals <180 mg/dL all other times of the day Specimen Anatomical Collection Method Collection Time Receive d Time (Source) Location / / Volume Laterality Blood specimen 08/11/2017 4:08 PM 018 4:08 (specimen) EST PM EST Yonathan Smith MD POINT OF CARE TEST ORDERABLE S Performing Organization Address City/State/ZIP Code Phon e Number [address] POCT Glucose (08/11/2017 12:04 PM EST) athologist Signature POC Glucose 182 65 - 199 [place]BAR[place] RYAN mg/dL [facility] Comment: Supplemental ranges: <140 mg/dL before meals <180 mg/dL all other times of the day Specimen Anatomical Collection Method Collection Time Receive d Time (Source) Location / / Volume Laterality Blood specimen 08/11/2017 12:04 8 (specimen) PM EST 12:04 PM EST Yonathan Smith MD POINT OF CARE TEST ORDERABLE S Performing Organization Address City/State/ZIP Code Phon e Number [address] POCT Glucose (08/11/2017 7:31 AM EST) P athologist Signature POC Glucose 156 65 - 199 [facility] mg/dL [facility] Comment: Supplemental ranges: <140 mg/dL before meals <180 mg/dL all other times of the day Specimen Anatomical Collection Method Collection Time Receive d Time (Source) Location / / Volume Laterality Blood specimen 08/11/2017 7:31 AM 018 7:31 (specimen) EST AM EST Yonathan Smith MD POINT OF CARE TEST ORDERABLE S Performing Organization Address City/State/[place] [address] (ABNORMAL) Differential, Automated (08/11/2017 6:16 AM EST) Patholo gist Method Time Signature Neutrophils % 83.7 % [facility] Neutr Abs (ANC) 10.76 (H) 1.70 - [facility] 6.10 [facility] x10(3)/[facility] L LABORATORY Lymphocytes % 6.0 % [facility] Lymphocytes Abs 0.8 (L) 0.9 - 3.2 [facility] x10(3)/[facility] LABORATORY Monocytes % 7.5 % [facility] Monocyte Abs 1.0 (H) 0.3 - 0.9 [facility] x10(3)/[facility] LABORATORY Eosinophils % 2.0 % [facility] Eosinophils Abs 0.3 0.0 - 0.4 [facility] x10(3)/[facility] LABORATORY Basophils % 0.3 % [facility] Basophils Abs 0.0 0.0 - 0.1 [facility] x10(3)/[facility] LABORATORY Immature Gran % 0.50 % [...] Gran Abs 0.06 (H) 0.00 - 0.04 x10(3)/[facility] LABORATORY Specimen Anatomical Collection Method Collection Time Receive d Time (Source) Location / / Volume Laterality Blood specimen 08/11/2017 6:16 AM 018 6:24 (specimen) EST AM EST Resulting Agency Comment Spec In Lab Yonathan Smith MD HEMATOLOGY ORDERABLES Performing Organization Address City/State/ZIP Code Phon e Number [place] [id number] [address] (ABNORMAL) Hemogram (08/11/2017 6:16 AM EST) Analysis Performed At Patho logist Time Signature WBC 12.9 (H) 4.0 - 9.5 [facility] x10(3)/[facility] LABORATORY RBC 3.28 (L) 4.58 - [facility] 5.54 [facility] x10(6)/[facility] LABORATORY Hemoglobin 9.5 (L) 13.7 - [facility] 16.5 gm/dL [facility] Hematocrit 29.8 (L) 40.5 - [facility] 48.5 % [facility] MCV 90.9 82.9 - [facility] 93.1 [facility] LABORATORY MCH 29.0 27.5 - [facility] 32.1 pg [facility] MCHC 31.9 (L) 32.0 - [facility] 35.7 gm/dL [facility] Platelets 236 145 - 357 [facility] x10(3)/[facility] LABORATORY RDWSD 53.5 (H) 36.0 - [facility] 45.0 [facility] LABORATORY RDWCV 16.3 (H) 11.4 - [facility] 13.8 % [facility] MPV 8.8 7.6 - 12.9 [facility] fL [facility] nRBC % Auto 0.0 % [facility] nRBC Abs Auto 0.000 0.000 - BAR[facility] DAVIS 0.000 [facility] x10(3)/[facility] LABORATORY Specimen Anatomical Collection Method Collection Time Receive d Time (Source) Location / / Volume Laterality Blood specimen 08/11/2017 6:16 AM 018 6:24 (specimen) EST AM EST Resulting Agency Comment Spec In Lab Yonathan Smith MD HEMATOLOGY ORDERABLES Performing Organization Address City/State/ZIP Code Phon e Number [address] (ABNORMAL) Prothrombin Time (08/11/2017 [...] Organization Address City/State/[place] [address] Basic Metabolic Panel (non-fasting) (08/11/2017 6:16 AM EST) P athologist Signature Glucose Lvl 139 65 - 199 [facility] mg/dL [facility] Comment: Diabetes: >=200 mg/dL plus [...] or in patients with acute kidney failure. [email or web address] [email or web address] Specimen Anatomical Collection Method Collection Time Receive d Time (Source) Location / / Volume Laterality Blood specimen 08/11/2017 6:16 AM 018 6:24 (specimen) EST AM EST Resulting Agency Comment Spec In Lab Yonathan Smith MD CHEMISTRY ORDERABLES Performing Organization Address City/State/[place] [address] POCT Glucose (08/11/2017 4:07 AM EST) athologist Signature POC Glucose 162 65 - 199 [facility] mg/dL [facility] Comment: Supplemental ranges: <140 mg/dL before meals <180 mg/dL all other times of the day Specimen Anatomical Collection Method Collection Time Receive d Time (Source) Location / / Volume Laterality Blood specimen 08/11/2017 4:07 AM 018 4:07 (specimen) EST AM EST Yonathan Smith MD POINT OF CARE TEST ORDERABLE S Performing Organization Address City/State/ZIP Code Phon e Number [address] POCT Glucose (08/10/2017 11:59 PM EST) athologist Signature POC Glucose 166 65 - 199 BARBARA ZHAORYAN mg/dL [facility] Comment: Supplemental ranges: <140 mg/dL [...] [facility] [place]/ZIP Code Phon e Number [address] POCT Glucose (08/10/2017 8:12 PM EST) athologist Signature POC Glucose 156 65 - 199 BARBARA ZHAORYAN mg/dL [facility] Comment: Supplemental ranges: <140 mg/dL before meals <180 mg/dL all other times of the day Specimen Anatomical Collection Method Collection Time Receive d Time (Source) Location / / Volume Laterality Blood specimen 08/10/2017 8:12 PM 018 8:12 (specimen) EST PM EST Yonathan Smith MD POINT OF CARE TEST ORDERABLE S Performing Organization Address City/State/[place] [address] (ABNORMAL) POCT Glucose (08/10/2017 4:42 PM EST) athologist Signature POC Glucose 211 (H) 65 - 199 [place] RYAN mg/dL [facility] Comment: Supplemental ranges: <140 mg/dL before meals <180 mg/dL all other times of the day Specimen Anatomical Collection Method Collection Time Receive d Time (Source) Location / / Volume Laterality Blood specimen 08/10/2017 4:42 PM 018 4:42 (specimen) EST PM EST Yonathan Smith MD POINT OF CARE TEST ORDERABLE S Performing Organization Address City/State/[place] [address] (ABNORMAL) Differential, Automated (08/10/2017 2:30 PM EST) [facility] Method Time Signature Neutrophils % 87.6 % [facility] Neutr Abs (ANC) 9.90 (H) 1.70 - [facility] 6.10 [facility] x10(3)/[facility] L LABORATORY Lymphocytes % 4.3 % [facility] Lymphocytes Abs 0.5 (L) 0.9 - 3.2 [facility] x10(3)/[facility] LABORATORY Monocytes % 6.0 % [facility] Monocyte Abs 0.7 0.3 - 0.9 [facility] x10(3)/[facility] LABORATORY Eosinophils % 1.1 % [facility] Eosinophils Abs 0.1 0.0 - 0.4 [facility] x10(3)/[facility] LABORATORY Basophils % 0.4 % [facility] Basophils Abs 0.0 0.0 - 0.1 [facility] x10(3)/[facility] LABORATORY Immature Gran % 0.60 % [...] Gran Abs 0.07 (H) 0.00 - 0.04 x10(3)/[facility] LABORATORY Specimen Anatomical Collection Method Collection Time Receive d Time (Source) Location / / Volume Laterality Blood specimen 08/10/2017 2:30 PM 018 2:48 (specimen) EST PM EST Resulting Agency Comment Spec In Lab Yonathna Smith MD HEMATOLOGY ORDERABLES Performing Organization Address City/State/ZIP Code Phon e Number [facility] [place] [address] (ABNORMAL) Hemogram (08/10/2017 2:30 PM EST) Analysis Performed At Patho logist Time Signature WBC 11.3 (H) 4.0 - 9.5 [facility] LABORATORY RBC 3.13 (L) 4.58 - [place]A RYAN 5.54 [facility] x10(6)/[facility] LABORATORY Hemoglobin 8.9 (L) 13.7 - [facility] 16.5 gm/dL [facility] Hematocrit 28.4 (L) 40.5 - [facility] 48.5 % [facility] MCV 90.7 82.9 - [facility] 93.1 [facility] LABORATORY MCH 28.4 27.5 - [facility] 32.1 pg [facility] MCHC 31.3 (L) 32.0 - [facility] 35.7 gm/dL [facility] Platelets 213 145 - 357 [facility] x10(3)/[facility] LABORATORY RDWSD 53.7 (H) 36.0 - [facility] 45.0 [facility] LABORATORY RDWCV 16.4 (H) 11.4 - [facility] 13.8 % [facility] MPV 8.9 7.6 - 12.9 [facility] LABORATORY nRBC % Auto 0.0 % [facility] nRBC Abs Auto 0.000 0.000 - [facility] 0.000 [facility] x10(3)/[facility] LABORATORY Specimen Anatomical Collection Method Collection Time Receive d Time (Source) Location / / Volume Laterality Blood specimen 08/10/2017 2:30 PM 018 2:48 (specimen) EST PM EST Resulting Agency Comment Spec In Lab Yonathan Smith MD HEMATOLOGY ORDERABLES Performing Organization Address City/State/[place] [address] (ABNORMAL) POCT Glucose (08/10/2017 1:50 PM EST) P athologist Signature POC Glucose 243 (H) 65 - 199 [facility] mg/dL [facility] Comment: Supplemental ranges: <140 mg/dL before meals <180 mg/dL all other times of the day Specimen Anatomical Collection Method Collection Time Receive d Time (Source) Location / / Volume Laterality Blood specimen 08/10/2017 1:50 PM 018 1:50 (specimen) EST PM EST Yonathan Smith MD POINT OF CARE TEST ORDERABLE S Performing Organization Address City/State/[place] [address] POCT Glucose (08/10/2017 11:21 AM EST) P athologist Signature POC Glucose 156 65 - 199 [facility] mg/dL [facility] Comment: Supplemental ranges: <140 mg/dL before meals <180 mg/dL all other times of the day Specimen Anatomical Collection Method Collection Time Receive d Time (Source) Location / / Volume Laterality Blood specimen 08/10/2017 11:21 8 (specimen) AM EST 11:21 AM EST Yonathan Smith MD POINT OF CARE TEST ORDERABLE S Performing Organization Address City/State/[place] [address] (ABNORMAL) Differential, Automated (08/10/2017 10:28 AM EST) Patholo gist Method Time Signature Neutrophils % 85.3 % [facility] Neutr Abs (ANC) 9.43 (H) 1.70 - [facility] 6.10 [facility] x10(3)/[facility] L LABORATORY Lymphocytes % 5.5 % [facility] Lymphocytes Abs 0.6 (L) 0.9 - 3.2 [facility] x10(3)/[facility] LABORATORY Monocytes % 5.9 % [facility] Monocyte Abs 0.6 0.3 - 0.9 [facility] x10(3)/[facility] LABORATORY Eosinophils % 2.1 % [facility] Eosinophils Abs 0.2 0.0 - 0.4 [facility] x10(3)/[facility] LABORATORY Basophils % 0.4 % [facility] Basophils Abs 0.0 0.0 - 0.1 [facility] x10(3)/[facility] LABORATORY Immature Gran % 0.80 % [facility] [...] Organization Address City/State/[place] [address] (ABNORMAL) Hemogram (08/10/2017 10:28 AM EST) Analysis Performed At Patho logist Time Signature WBC 11.0 (H) 4.0 - 9.5 [facility] x10(3)/[facility] LABORATORY RBC 3.02 (L) 4.58 - [facility] 5.54 [facility] x10(6)/[facility] LABORATORY Hemoglobin 8.8 (L) 13.7 - [facility] 16.5 gm/dL [facility] Hematocrit 28.1 (L) 40.5 - [facility] 48.5 % [facility] MCV 93.0 82.9 - [facility] 93.1 [facility] LABORATORY MCH 29.1 27.5 - [facility] 32.1 pg [facility] MCHC 31.3 (L) 32.0 - [facility] 35.7 gm/dL [facility] Platelets 207 145 - 357 [facility] x10(3)/[facility] LABORATORY RDWSD 55.3 (H) 36.0 - [facility] RYAN 45.0 [facility] LABORATORY RDWCV 16.4 (H) 11.4 - [facility] 13.8 % [facility] MPV 9.0 7.6 - 12.9 [facility] LABORATORY nRBC % Auto 0.0 % [facility] nRBC Abs Auto 0.000 0.000 - [facility] DAVIS 0.000 [facility] x10(3)/[facility] LABORATORY Specimen Anatomical Collection Method Collection Time Receive d Time (Source) Location / / Volume Laterality Blood specimen 08/10/2017 10:28 8 (specimen) AM EST 10:35 AM EST Resulting Agency Comment Spec In Lab Yonathan Smith MD HEMATOLOGY ORDERABLES Performing Organization Address City/State/ZIP Code Phon e Number [place] [id number] HOSPITAL LAB[address]ORY [address] VS Angiogram/intervention (vascular) (08/10/2017 [...] 2.5x80 5. Completion RLE angiogram 6. L RABBET OPERATOR angiogram 7. 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 L RABBET OPERATOR access in the distal L RABBET OPERATOR. - Closure device: Mynx Technical Procedure: [...] for a 45cm 5F Destination. V18 and [place] a nd QuickCross catheters were used to [...] bifurcation. Access appeared in the distal R RABBET OPERATOR. Closure and sheath removal was performed [...] 2.5x80 5. Completion RLE angiogram 6. L RABBET OPERATOR angiogram 7. 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 L RABBET OPERATOR access in the distal L RABBET OPERATOR. - Closure device: Mynx Technical Procedure: [...] for a 45cm 5F Destination. V18 and [place] a nd QuickCross catheters were used to [...] bifurcation. Access appeared in the distal R RABBET OPERATOR. Closure and sheath removal was performed [...] (ABNORMAL) Differential, Automated (08/10/2017 5:50 AM EST) [facility] Method Time Signature Neutrophils % 80.1 % [facility] Neutr Abs (ANC) 9.01 (H) 1.70 - [facility] 6.10 [facility] x10(3)/[facility] LABORATORY Lymphocytes % 8.8 % [facility] Lymphocytes Abs 1.0 0.9 - 3.2 [facility] x10(3)/[facility] LABORATORY Monocytes % 8.3 % [facility] Monocyte Abs 0.9 0.3 - 0.9 [facility] x10(3)/[facility] LABORATORY Eosinophils % 2.0 % [facility] Eosinophils Abs 0.2 0.0 - 0.4 [facility] x10(3)/[facility] LABORATORY Basophils % 0.4 % [facility] Basophils Abs 0.0 0.0 - 0.1 [facility] x10(3)/[facility] LABORATORY Immature Gran % 0.40 % [...] Organization Address City/State/[place] [address] (ABNORMAL) Hemogram (08/10/2017 5:50 AM EST) Analysis Performed At Patho logist Time Signature WBC 11.3 (H) 4.0 - 9.5 [facility](3[facility] LABORATORY RBC 3.15 (L) 4.58 - [facility] 5.54 [facility] x10(6)/[facility] LABORATORY Hemoglobin 8.9 (L) 13.7 - [facility] 16.5 gm/dL [facility] Hematocrit 29.0 (L) 40.5 - [facility] 48.5 % [facility] MCV 92.1 82.9 - [facility] 93.1 [facility] LABORATORY MCH 28.3 27.5 - [place] RYAN 32.1 pg [facility] MCHC 30.7 (L) 32.0 - [facility] RYAN 35.7 gm/dL [facility] Platelets 231 145 - 357 [facility] x10(3)/[facility] LABORATORY RDWSD 53.9 (H) 36.0 - [facility] RYAN 45.0 [facility] LABORATORY RDWCV 16.2 (H) 11.4 - [facility] RYAN 13.8 % [facility] MPV 8.7 7.6 - 12.9 [facility] nRBC % Auto 0.0 % [facility] nRBC Abs Auto 0.000 0.000 - [facility] RYAN 0.000 [facility] x10(3)/[facility] LABORATORY Specimen Anatomical Collection Method Collection Time Receive d Time (Source) Location / / Volume Laterality Blood specimen 08/10/2017 5:50 AM 018 5:59 (specimen) EST AM EST Resulting Agency Comment Spec In Lab Yonathan Smith MD HEMATOLOGY ORDERABLES Performing Organization Address City/State/[place] [address] (ABNORMAL) Basic Metabolic Panel (non-fasting) (08/10/2017 5:50 AM EST) P athologist Signature Glucose Lvl 135 65 - 199 [facility] mg/dL [facility] Comment: Diabetes: >=200 mg/dL plus [...] or in patients with acute kidney failure. [email or web address] Specimen Anatomical Collection Method Collection Time Receive d Time (Source) Location / / Volume Laterality Blood specimen 08/10/2017 5:50 AM 018 5:59 (specimen) EST AM EST Resulting Agency Comment Spec In Lab Yonathan Smith MD CHEMISTRY ORDERABLES Performing Organization Address City/State/ZIP Code Phon e Number [address] (ABNORMAL) Prothrombin Time (08/10/2017 [...] Organization Address City/State/[place] [address] (ABNORMAL) POCT Glucose (08/10/2017 4:01 AM EST) athologist Signature POC Glucose 206 (H) 65 - 199 [facility] mg/dL [facility] Comment: Supplemental ranges: <140 mg/dL before meals <180 mg/dL all other times of the day Specimen Anatomical Collection Method Collection Time Receive d Time (Source) Location / / Volume Laterality Blood specimen 08/10/2017 4:01 AM 018 4:01 (specimen) EST AM EST Yonathan Smith MD POINT OF CARE TEST ORDERABLE S Performing Organization Address City/State/[place] [address] POCT Glucose (08/10/2017 2:01 AM EST) athologist Signature POC Glucose 188 65 - 199 [facility] mg/dL [facility] Comment: Supplemental ranges: <140 mg/dL before meals <180 mg/dL all other times of the day Specimen Anatomical Collection Method Collection Time Receive d Time (Source) Location / / Volume Laterality Blood specimen 08/10/2017 2:01 AM 018 2:01 (specimen) EST AM EST Yonathan Smith MD POINT OF CARE TEST ORDERABLE S Performing Organization Address City/State/[place] [address] (ABNORMAL) POCT Glucose (08/09/2017 11:42 PM EST) athologist Signature POC Glucose 283 (H) 65 - 199 [facility] RYAN mg/dL [facility] Comment: Supplemental ranges: <140 mg/dL [...] [facility] [place] [address] POCT Glucose (08/09/2017 8:55 PM EST) athologist Signature POC Glucose 182 65 - 199 [facility] RYAN mg/dL [facility] Comment: Supplemental ranges: <140 mg/dL before meals <180 mg/dL all other times of the day Specimen Anatomical Collection Method Collection Time Receive d Time (Source) Location / / Volume Laterality Blood specimen 08/09/2017 8:55 PM 018 8:55 (specimen) EST PM EST Yonathan Smith MD POINT OF CARE TEST ORDERABLE S Performing Organization Address City/State/[place] [address] (ABNORMAL) APTT (08/09/2017 6:42 PM EST) athologist Signature PTT 90 (H) 25 - 35 sec [facility] Comment: The recommended therapeutic range for fu ll dose, unfractionated heparin at [facility] is 80 ? 114 seconds. The use [...] Organization Address City/State/ZIP Code Phon e Number [address] POCT Glucose (08/09/2017 4:41 PM EST) athologist Signature POC Glucose 195 65 - 199 [place] mg/dL [facility] Comment: Supplemental ranges: <140 mg/dL [...] [facility] [place]/ZIP Code Phon e Number [address] POCT Glucose (08/09/2017 12:29 PM EST) athologist Signature POC Glucose 140 65 - 199 [place] mg/dL [facility] Comment: Supplemental ranges: <140 mg/dL before meals <180 mg/dL all other times of the day Specimen Anatomical Collection Method Collection Time Receive d Time (Source) Location / / Volume Laterality Blood specimen 08/09/2017 12:29 8 (specimen) PM EST 12:29 PM EST Yonathan Smith MD POINT OF CARE TEST ORDERABLE S Performing Organization Address City/State/ZIP Code Phon e Number [address] POCT Glucose (08/09/2017 9:59 AM EST) athologist Signature POC Glucose 135 65 - 199 [place] [facility] mg/dL [facility] Comment: Supplemental ranges: <140 mg/dL [...] [facility] [place] [address] Specimen to Pathology (08/09/2017 [...] [facility] [place] [address] Surgical Pathology Report (08/09/2017 8:40 AM EST) Component Value Ref Test Analysis Performed At [facility] gist Range Method Time Signature Surgical [id number] ? Location: [facility]; [facility]; [facility] Report The signing pathologist has (i) examined the relevant preparation(s) for the [facility] specimen(s) and (ii) rendered or confirmed the diagnosis(es) . HOSPITAL LABORATORY . 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 ?Viable proximal resection margins. Electronically signed by: ??Henrique Saravia MD Verified: ??08/13/2017 ?Pathologist Performed at: ??-[facility] Dept. of Pathology, [place], [place] CLINICAL INFORMATION Specimen Submitted: A - [...] [facility] [place] [address] Anaerobic Culture (08/09/2017 8:30 AM EST) [facility] gist Method Time Signature Anaerobic No anaerobic [facility] Culture organisms [facility] LABORATORY Specimen Anatomical Collection Method Collection Time [...] Organization Address City/State/[place] [address] (ABNORMAL) Abscess/Wound Aspirate Culture (08/09/2017 8:30 AM EST) Patholo gist Method Time Signature Abscess/Wound Moderate mixed [place] Aspirate bacterial [place] Culture morphotypes [facility] normal LABORATORY cutaneous leroy (A) Gram Stain Rare White Blood Cells [place] Few Gram Positive Cocci in pairs [place] (A) [facility] Organism Gram Positive [place] Cocci in pairs [place] (A) [facility] Specimen Anatomical Collection Method Collection [...] Organization Address City/State/ZIP Code Phon e Number [address] POCT Glucose (08/09/2017 4:28 AM EST) P athologist Signature POC Glucose 128 65 - 199 [facility] mg/dL [facility] Comment: Supplemental ranges: <140 mg/dL [...] [facility] [place] [address] ABORH Recheck Status (08/09/2017 1:10 AM EST) [facility] gist Method Time Signature ABORH Type Completed [facility] LABORATORY Specimen Anatomical Collection Method Collection Time Receive d Time (Source) Location / / Volume Laterality Blood specimen 08/09/2017 1:10 AM 018 1:35 (specimen) EST AM EST Resulting Agency Comment Spec In Lab Yonathan Smith MD BLOOD BANK ORDERABLES Performing Organization Address City/[facility]/[place] [address] Antibody screen (08/09/2017 1:10 AM EST) Patholo gist Method Time Signature Ab Screen Negative [facility] LABORATORY Expires at 08/12/2017 [place] ZHAORYAN [id number] on: [facility]OR[facility]ORY Specimen Anatomical Collection Method Collection Time Receive d Time (Source) Location / / Volume Laterality Blood specimen 08/09/2017 1:10 AM 018 1:35 (specimen) EST AM EST Resulting Agency Comment Spec In Lab Yonathan Smith MD BLOOD BANK ORDERABLES Performing Organization Address City/[facility]/ZIP Code Phon e Number [address] ABO/Rh Typing (08/09/2017 1:10 [...] [facility] [place] [address] (ABNORMAL) APTT (08/09/2017 1:10 AM EST) P athologist Signature PTT 86 (H) 25 - 35 sec [facility] Comment: The recommended therapeutic range for fu ll dose, unfractionated heparin at [facility] is 80 ? 114 seconds. The use [...] [facility] [place] [address] (ABNORMAL) Differential, Automated (08/09/2017 1:10 AM EST) [facility] Method Time Signature Neutrophils % 76.2 % [facility] Neutr Abs (ANC) 8.59 (H) 1.70 - [facility] 6.10 [facility] x10(3)/[facility] LABORATORY Lymphocytes % 11.0 % [facility] Lymphocytes Abs 1.2 0.9 - 3.2 [facility] x10(3)/[facility] LABORATORY Monocytes % 8.4 % [facility] Monocyte Abs 1.0 (H) 0.3 - 0.9 [facility] x10(3)/[facility] LABORATORY Eosinophils % 3.5 % [facility] Eosinophils Abs 0.4 0.0 - 0.4 [facility] x10(3)/[facility] LABORATORY Basophils % 0.5 % [facility] Basophils Abs 0.1 0.0 - 0.1 [facility] x10(3)/[facility] LABORATORY Immature Gran % 0.40 % [...] Organization Address City/State/[place] [address] [facility] [address] (ABNORMAL) Hemogram (08/09/2017 1:10 AM EST) Analysis Performed At Patho logist Time Signature WBC 11.3 (H) 4.0 - 9.5 [facility] x10(3)/[facility] LABORATORY RBC 3.47 (L) 4.58 - [facility] 5.54 [facility] x10(6)/[facility] LABORATORY Hemoglobin 10.0 (L) 13.7 - [facility] 16.[facility] gm/dL [facility] Hematocrit 31.9 (L) 40.5 - [facility] 48.5 % [facility] MCV 91.9 82.9 - [facility] 93.1 [facility] LABORATORY MCH 28.8 27.5 - [facility] 32.1 pg [facility] MCHC 31.3 (L) 32.0 - [facility] 35.7 gm/dL [facility] Platelets 234 145 - 357 [facility] x10(3)/[facility] LABORATORY RDWSD 54.0 (H) 36.0 - [facility] 45.0 [facility] LABORATORY RDWCV 16.2 (H) 11.4 - [facility] 13.8 % [facility] LABORATORY MPV 8.7 7.6 - 12.9 [facility] LABORATORY nRBC % Auto 0.0 % [facility] nRBC Abs Auto 0.000 0.000 - [facility] 0.000 [facility] x10(3)/[facility] LABORATORY Specimen Anatomical Collection Method Collection Time Receive d Time (Source) Location / / Volume Laterality Blood specimen 08/09/2017 1:10 AM 018 1:19 (specimen) EST AM EST Resulting Agency Comment Spec In Lab Yonathan Smith MD HEMATOLOGY ORDERABLES Performing Organization Address City/State/[place] [address] (ABNORMAL) Prothrombin Time (08/09/2017 1:10 AM EST) P athologist Signature PT 16.0 (H) 11.8 - 14.0 [place] [facility] [...] Organization Address City/State/ZIP Code Phon e Number [place] [id number] [address] (ABNORMAL) Basic Metabolic Panel (non-fasting) (08/09/2017 1:10 AM EST) P athologist Signature Glucose Lvl 108 65 - 199 [facility] mg/dL [facility] Comment: Diabetes: >=200 mg/dL plus [...] mg/dL [facility] LABORATORY Estimated GFR 45 (L) >=60 [facility] LABORATORY Comment: The reported eGFR should be multiplied b y 1.2 for patients. The MDRD is not an appropriate measure o f renal function for patients with body mass extremes or in patients with acute kidney failure. [email or web address] [email or web address] Specimen Anatomical Collection Method Collection Time Receive d Time (Source) Location / / Volume Laterality Blood specimen 08/09/2017 1:10 AM 018 1:19 (specimen) EST AM EST Resulting Agency Comment Spec In Lab Yonathan Smith MD CHEMISTRY ORDERABLES Performing Organization Address City/State/ZIP Code Phon e Number [address] POCT Glucose (08/09/2017 12:05 AM EST) athologist Signature POC Glucose 128 65 - 199 [facility] mg/dL [facility] Comment: Supplemental ranges: <140 mg/dL [...] [facility] [place] [address] (ABNORMAL) POCT Glucose (08/08/2017 7:36 PM EST) athologist Signature POC Glucose 215 (H) 65 - 199 [facility] mg/dL [facility] Comment: Supplemental ranges: <140 mg/dL [...] [facility] [place] [address] (ABNORMAL) POCT Glucose (08/08/2017 6:23 PM EST) athologist Signature POC Glucose 216 (H) 65 - 199 [facility] mg/dL [facility] Comment: Supplemental ranges: <140 mg/dL [...] [facility] [place] [address] (ABNORMAL) APTT (08/08/2017 6:00 PM EST) athologist Signature PTT 97 (H) 25 - 35 sec [facility] Comment: The recommended therapeutic range for fu ll dose, unfractionated heparin at [facility] is 80 ? 114 seconds. The use [...] [facility] [place] [address] POCT Glucose (08/08/2017 4:42 PM EST) athologist Signature POC Glucose 78 65 - 199 [facility] mg/dL [facility] Comment: Supplemental ranges: <140 mg/dL before meals <180 mg/dL all other times of the day Specimen Anatomical Collection Method Collection Time Receive d Time (Source) Location / / Volume Laterality Blood specimen 08/08/2017 4:42 PM 018 4:42 (specimen) EST PM EST Yonathan Smith MD POINT OF CARE TEST ORDERABLE S Performing Organization Address City/State/[place] [address] (ABNORMAL) POCT Glucose (08/08/2017 4:01 PM EST) athologist Signature POC Glucose 58 (L) 65 - 199 [facility] mg/dL [facility] Comment: Supplemental ranges: <140 mg/dL before meals <180 mg/dL all other times of the day Specimen Anatomical Collection Method Collection Time Receive d Time (Source) Location / / Volume Laterality Blood specimen 08/08/2017 4:01 PM 018 4:01 (specimen) EST PM EST Yonathan Smith MD POINT OF CARE TEST ORDERABLE S Performing Organization Address City/State/[place] [address] POCT Glucose (08/08/2017 11:51 AM EST) athologist Signature POC Glucose 90 65 - 199 [facility] mg/dL [facility] Comment: Supplemental ranges: <140 mg/dL before meals <180 mg/dL all other times of the day Specimen Anatomical Collection Method Collection Time Receive d Time (Source) Location / / Volume Laterality Blood specimen 08/08/2017 11:51 8 (specimen) AM EST 11:51 AM EST Yonathan Smith MD POINT OF CARE TEST ORDERABLE S Performing Organization Address City/State/[place] [address] (ABNORMAL) APTT (08/08/2017 10:27 AM EST) athologist Signature PTT 64 (H) 25 - 35 sec [facility] Comment: The recommended therapeutic range for fu ll dose, unfractionated heparin at [facility] is 80 ? 114 seconds. The use [...] Organization Address City/State/ZIP Code Phon e Number [address] POCT Glucose (08/08/2017 8:02 AM EST) athologist Signature POC Glucose 178 65 - 199 [facility] mg/dL [facility] Comment: Supplemental ranges: <140 mg/dL before meals <180 mg/dL all other times of the day Specimen Anatomical Collection Method Collection Time Receive d Time (Source) Location / / Volume Laterality Blood specimen 08/08/2017 8:02 AM 018 8:02 (specimen) EST AM EST Yonathan Smith MD POINT OF CARE TEST ORDERABLE S Performing Organization Address [facility] Phon e Number [address] (ABNORMAL) APTT (08/08/2017 4:51 AM EST) athologist Signature PTT >160 25 - 35 [facility] (Critical) [facility] LABORATORY Comment: Called by: HOWARD, Read back by: Melba Jaramillo, Date/Time:08/08/17 05:43. The recommended therapeutic range for fu ll dose, unfractionated heparin at [facility] is 80 ? 114 seconds. The use [...] [facility] [place]/ZIP Code Phon e Number [address] (ABNORMAL) Differential, Automated (08/08/2017 4:51 AM EST) Patholo gist Method Time Signature Neutrophils % 77.9 % [facility]OR[facility]ORY Neutr Abs (ANC) 8.17 (H) 1.70 - [facility] 6.10 [facility] x10(3)/[facility] LABORATORY Lymphocytes % 10.3 % [facility]OR[facility]ORY Lymphocytes Abs 1.1 0.9 - 3.2 [facility] x10(3)/[facility] LABORATORY Monocytes % 7.0 % [facility]OR[facility]ORY Monocyte Abs 0.7 0.3 - 0.9 [facility] x10(3)/[facility] LABORATORY Eosinophils % 3.6 % [facility] LABORATORY Eosinophils Abs 0.4 0.0 - 0.4 [facility] x10(3)/[facility] LABORATORY Basophils % 0.5 % [facility]OR[facility]ORY Basophils Abs 0.0 0.0 - 0.1 [facility] x10(3)/[facility] LABORATORY Immature Gran % 0.70 % [...] Gran Abs 0.07 (H) 0.00 - 0.04 x10(3)/[facility] LABORATORY Specimen Anatomical Collection Method Collection Time Receive d Time (Source) Location / / Volume Laterality Blood specimen 08/08/2017 4:51 AM 018 5:14 (specimen) EST AM EST Resulting Agency Comment Spec In Lab Yonathan Smith MD HEMATOLOGY ORDERABLES Performing Organization Address City/State/[place] [address] (ABNORMAL) Hemogram (08/08/2017 4:51 AM EST) Analysis Performed At Patho logist Time Signature WBC 10.5 (H) 4.0 - 9.5 [facility] x10(3)/[facility] LABORATORY RBC 3.27 (L) 4.58 - [facility] 5.54 [facility] x10(6)/[facility] LABORATORY Hemoglobin 9.3 (L) 13.7 - [facility] 16.5 gm/dL [facility]OR[facility]ORY Hematocrit 30.3 (L) 40.5 - [facility] 48.5 % [facility]AT[facility] MCV 92.7 82.9 - [facility] 93.1 [facility] LABORATORY MCH 28.4 27.5 - [facility] 32.1 pg [facility] LABORATORY MCHC 30.7 (L) 32.0 - [facility] 35.7 gm/dL [facility] Platelets 252 145 - 357 [facility] x10(3)/[facility] LABORATORY RDWSD 54.6 (H) 36.0 - [facility] 45.0 [facility] LABORATORY RDWCV 16.2 (H) 11.4 - [facility] 13.8 % [facility] LABORATORY MPV 9.1 7.6 - 12.9 [facility] LABORATORY nRBC % Auto 0.0 % [facility]ORY nRBC Abs Auto 0.000 0.000 - [facility] 0.000 [facility] x10(3)/[facility] LABORATORY Specimen Anatomical Collection Method Collection Time Receive d Time (Source) Location / / Volume Laterality Blood specimen 08/08/2017 4:51 AM 018 5:14 (specimen) EST AM EST Resulting Agency Comment Spec In Lab Yonathan Smith MD HEMATOLOGY ORDERABLES Performing Organization Address City/State/[place] [address] (ABNORMAL) Prothrombin Time (08/08/2017 [...] Organization Address City/State/[place] [address] (ABNORMAL) Basic Metabolic Panel (non-fasting) (08/08/2017 4:51 AM EST) athologist Signature Glucose Lvl 229 (H) 65 - 199 [facility] mg/dL [facility] Comment: Diabetes: >=200 mg/dL plus symp toms BUN 35 (H) 10 - 20 mg/dL [facility] LABORATORY Creatinine 1.57 (H) 0.80 - 1.50 mg/dL [facility] LABORATORY Sodium 136 135 - 145 mmol/L [facility] [...] Calcium 7.9 (L) 8.5 - 10.5 mg/dL [facility] LABORATORY Estimated GFR 44 (L) >=60 [facility] LABORATORY Comment: The reported eGFR should be multiplied b y 1.2 for patients. The MDRD is not an appropriate measure o f renal function for patients with body mass extremes or in patients with acute kidney failure. [email or web address]/DHnkdep [email or web address] HUGOnk Specimen Anatomical Collection Method Collection Time Receive d Time (Source) Location / / Volume Laterality Blood specimen 08/08/2017 4:51 AM 018 5:14 (specimen) EST AM EST Resulting Agency Comment Spec In Lab Yonathan Smith MD CHEMISTRY ORDERABLES Performing Organization Address City/State/[place] [address] POCT Glucose (08/08/2017 4:20 AM EST) athologist Signature POC Glucose 193 65 - 199 [facility]dL [facility] Comment: Supplemental ranges: <140 mg/dL before meals <180 mg/dL all other times of the day Specimen Anatomical Collection Method Collection Time Receive d Time (Source) Location / / Volume Laterality Blood specimen 08/08/2017 4:20 AM 018 4:20 (specimen) EST AM EST Yonathan Smith MD POINT OF CARE TEST ORDERABLE S Performing Organization Address City/State/[place] [address] POCT Glucose (08/07/2017 11:11 PM EST) athologist Signature POC Glucose 124 65 - 199 [facility] mg/dL [facility] Comment: Supplemental ranges: <140 mg/dL before meals <180 mg/dL all other times of the day Specimen Anatomical Collection Method Collection Time Receive d Time (Source) Location / / Volume Laterality Blood specimen 08/07/2017 11:11 8 (specimen) PM EST 11:11 PM EST Yonathan Smith MD POINT OF CARE TEST ORDERABLE S Performing Organization Address City/State/[place] [address] (ABNORMAL) APTT (08/07/2017 10:18 PM EST) athologist Signature PTT 114 (H) 25 - 35 sec [facility] Comment: The recommended therapeutic range for fu ll dose, unfractionated heparin at [facility] is 80 ? 114 seconds. The use [...] [facility] [place]/ZIP Code Phon e Number [address] POCT Glucose (08/07/2017 8:10 PM EST) athologist Signature POC Glucose 140 65 - 199 [place] mg/dL [facility] Comment: Supplemental ranges: <140 mg/dL [...] [facility] [place]/ZIP Code Phon e Number [address] POCT Glucose (08/07/2017 5:27 PM EST) athologist Signature POC Glucose 187 65 - 199 [place] mg/dL [facility] Comment: Supplemental ranges: <140 mg/dL [...] [facility] [place]/ZIP Code Phon e Number [address] POCT Glucose (08/07/2017 3:29 PM EST) athologist Signature POC Glucose 86 65 - 199 [place] mg/dL [facility] Comment: Supplemental ranges: <140 mg/dL [...] [facility] [place] [address] (ABNORMAL) APTT (08/07/2017 2:50 PM EST) athologist Signature PTT 60 (H) 25 - 35 sec [facility] Comment: The recommended therapeutic range for fu ll dose, unfractionated heparin at [facility] is 80 ? 114 seconds. The use [...] [facility] [place] [address] (ABNORMAL) POCT Glucose (08/07/2017 2:23 PM EST) athologist Signature POC Glucose 55 (L) 65 - 199 [facility] mg/dL [facility] Comment: Supplemental ranges: <140 mg/dL [...] [facility] [place] [address] POCT Glucose (08/07/2017 12:08 PM EST) P athologist Signature POC Glucose 77 65 - 199 [facility] mg/dL [facility] Comment: Supplemental ranges: <140 mg/dL before meals <180 mg/dL all other times of the day Specimen Anatomical Collection Method Collection Time Receive d Time (Source) Location / / Volume Laterality Blood specimen 08/07/2017 12:08 8 (specimen) PM EST 12:08 PM EST Yonathan Smith MD POINT OF CARE TEST ORDERABLE S Performing Organization Address City/State/[place] [address] (ABNORMAL) Differential, Automated (08/07/2017 7:30 AM EST) Patholo gist Method Time Signature Neutrophils % 73.8 % [facility] Neutr Abs (ANC) 7.17 (H) 1.70 - [facility] 6.10 [facility] x10(3)/[facility] LABORATORY Lymphocytes % 12.2 % [facility] Lymphocytes Abs 1.2 0.9 - 3.2 [facility] x10(3)/[facility] LABORATORY Monocytes % 9.0 % [facility] Monocyte Abs 0.9 0.3 - 0.9 [facility] x10(3)/[facility] LABORATORY Eosinophils % 3.9 % [facility] Eosinophils Abs 0.4 0.0 - 0.4 [facility] x10(3)/[facility] LABORATORY Basophils % 0.6 % [facility] Basophils Abs 0.1 0.0 - 0.1 [facility] x10(3)/[facility] LABORATORY Immature Gran % 0.50 % [...] Organization Address City/State/[place] [address] (ABNORMAL) Hemogram (08/07/2017 7:30 AM EST) Analysis Performed At Patho logist Time Signature WBC 9.7 (H) 4.0 - 9.5 [facility] x10(3)/[facility] LABORATORY RBC 3.54 (L) 4.58 - [facility] 5.54 [facility] x10(6)/[facility] LABORATORY Hemoglobin 9.9 (L) 13.7 - [facility] 16.5 gm/dL [facility] Hematocrit 32.3 (L) 40.5 - [facility] 48.5 % [facility] MCV 91.2 82.9 - [facility] 93.1 [facility] LABORATORY MCH 28.0 27.5 - [facility] 32.1 pg [facility] MCHC 30.7 (L) 32.0 - [facility] 35.7 gm/dL [facility] Platelets 312 145 - 357 [facility] x10(3)/[facility] LABORATORY RDWSD 53.2 (H) 36.0 - [facility] 45.0 [facility] LABORATORY RDWCV 16.0 (H) 11.4 - [facility] RYAN 13.8 % [facility] MPV 8.9 7.6 - 12.9 [facility] nRBC % Auto 0.0 % [facility] nRBC Abs Auto 0.000 0.000 - [facility] RYAN 0.000 [facility] x10(3)/[facility] LABORATORY Specimen Anatomical Collection Method Collection Time Receive d Time (Source) Location / / Volume Laterality Blood specimen 08/07/2017 7:30 AM 018 7:45 (specimen) EST AM EST Resulting Agency Comment Spec In Lab Yonathan Smith MD HEMATOLOGY ORDERABLES Performing Organization Address City/[facility] [place]/[place] [address] (ABNORMAL) Basic Metabolic Panel (non-fasting) (08/07/2017 7:30 AM EST) athologist Signature Glucose Lvl 80 65 - 199 [facility] mg/dL [facility] Comment: Diabetes: >=200 mg/dL plus [...] mg/dL [facility] Estimated GFR 59 (L) >=60 [facility] Comment: The reported eGFR should be multiplied b y 1.2 for patients. The MDRD is not an appropriate measure o f renal function for patients with body mass extremes or in patients with acute kidney failure. [email or web address]/DHnkdep [email or web address]/DHMCnkf Specimen Anatomical Collection Method Collection Time Receive d Time (Source) Location / / Volume Laterality Blood specimen 08/07/2017 7:30 AM 018 7:45 (specimen) EST AM EST Resulting Agency Comment Spec In Lab Yonathan Smith MD CHEMISTRY ORDERABLES Performing Organization Address City/[facility]/ZIP Code Phon e Number [place] [address] POCT Glucose (08/07/2017 7:27 AM EST) P athologist Signature POC Glucose 81 65 - 199 [facility] mg/dL [facility] Comment: Supplemental ranges: <140 mg/dL before meals <180 mg/dL all other times of the day Specimen Anatomical Collection Method Collection Time Receive d Time (Source) Location / / Volume Laterality Blood specimen 08/07/2017 7:27 AM 018 7:27 (specimen) EST AM EST Yonathan Smith MD POINT OF CARE TEST ORDERABLE S Performing Organization Address City/State/ZIP Code Phon e Number [address] APTT (08/07/2017 7:04 AM EST) athologist Signature PTT 34 25 - 35 sec [facility] Comment: The recommended therapeutic range for fu ll dose, unfractionated heparin at [facility] is 80 ? 114 seconds. The use [...] Organization Address City/State/[place] [address] (ABNORMAL) Prothrombin Time (08/07/2017 [...] [facility] [place]/ZIP Code Phon e Number [address] POCT Glucose (08/07/2017 4:03 AM EST) athologist Signature POC Glucose 93 65 - 199 [place] mg/dL [facility] Comment: Supplemental ranges: <140 mg/dL [...] [facility] [place]/ZIP Code Phon e Number [address] POCT Glucose (08/07/2017 12:04 AM EST) athologist Signature POC Glucose 107 65 - 199 [place] mg/dL [facility] Comment: Supplemental ranges: <140 mg/dL [...] [facility] [place]/ZIP Code Phon e Number [address] POCT Glucose (08/06/2017 7:56 PM EST) athologist Signature POC Glucose 178 65 - 199 [place] mg/dL [facility] Comment: Supplemental ranges: <140 mg/dL before meals <180 mg/dL all other times of the day Specimen Anatomical Collection Method Collection Time Receive d Time (Source) Location / / Volume Laterality Blood specimen 08/06/2017 7:56 PM 018 7:56 (specimen) EST PM EST Yonathan Smith MD POINT OF CARE TEST ORDERABLE S Performing Organization Address City/State/[place] [address] TcPO2 (08/06/2017 2:32 PM EST) Component Value Ref Test Analysis Performed At [facility] gist Range Method Time Signature VB Text Department: Vascular Surgery Lab VASCUBASE Report Patient: [id number] (GREGORY HOANG) CPT: 0996497 ICD10: I99.8 Referring Physician: YONATHAN SMITH ?? [...] lab da tabase for comparison. Notification: Dr. eTe was informed of these preliminary fi ndings. [...] 0800 (Given - Provider: Dory Truong, VAMSI) 81 mg, Oral, EVERY OTHER DAY, First [...] Chiquis Mcgrath, VAMSI)1730 (Given - Provider: Chiquis Mcgrath, VAMSI) 0746 [...] BG 174)2008 (Given - Provider: Henrique Marks, RN) 1200 (Not Given - Provider: Chiquis [...] Chiquis Mcgrath RN)2011 (Given - Provider: Henrique Makrs RN) 0808 (Given - Provider: Chiquis Mcgrath [...] Mira Truong, RN)0751 (Given - Provider: Dory Truong RN)1042 [...]
Routine documented in this encounter Care Teams Corrosion Control Fitter Relationship Specialty Start Date End Date Lovely Vicente MD PCP - General 04/16/[address] [place] [address] [address] [place] [address] documented as of this encounter
--- OUTSIDE RECORDS SUMMARY | 2022-02-25 08:14 | XMS_ITS | Encounter Summary ---
:1945 Author Organization [facility] [place] [address] Care Team Providers Name Role Phone Lovely Vicente MD Primary Care Provider Reason for Visit Auth/Cert Specialty Diagnoses / Procedures Referred By Contact Refer red To Contact Diagnoses Critical lower limb ischemia CELLULITIS RT FOOT Procedures EMERGENCY Referral ID Status Reason Start Date Expiration Date Visits Requ ested Visits Authorized [id number] 1 1 Encounter Details Date Type Department Care Team Description 08/11/2017 Surgery Main Operating Room Yonathan Smith (M SURG) DRESSING CHANGE Barbara Ocampo MD (FOR OTHER THAN IVAN) [facility] UNDER ANES. 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 [...] Dorsalis Pedis (Ankle) Artery ?132 ? 0.94 ??Baldwin-Biphasic ? Posterior Tibial (Ankle) Artery ??154 ? 1.10 ??Baldwin-Biphasic ? Fourth Toe ? 67 ?0.48 ?? [...] For any problems or questions please call [phone] ZELDA Smith, applied psychology teacher Nurse Clinician For issues on weeknights after 5pm and weekends please call [phone] and ask for the Vascular Fellow vocational rehabilitation administrator. General Instructions None Future Appointments and Orders Future Appointments Provider Department Dept Phone 08/26/2017 4:00 PM Aurelia Rivera PA [facility] [place] [phone] 09/07/2017 3:00 PM LAB, THREE L Lab 3L [facility] [phone] 09/07/2017 4:00 PM Luz Prescott MD Endocrinology [facility] [place] [phone] 09/09/2017 8:00 AM Barbra Soares APRN Pain Management [facility] [place] [phone] Please bring a list of your current [...] For any problems or questions please call [phone] ZELDA Smith, applied psychology teacher Nurse Clinician For issues on weeknights after 5pm and weekends please call [phone] and ask for the Vascular Fellow vocational rehabilitation administrator. documented in this encounter Medications at [...] of Care Management Discharge Note Patient Destination: [facility] [address] [place] [id number] Transportation: with (at bedside) Time of Discharge: by 12 noon Level of Care: swing Patient Aware: yes Family Notified: yes Md to call report to: Yissel Quintero HAM SMOKER already called RN to call report to: [phone] Shirin Wolf Office of Care Management Pager [phone] Shirin Wagner RN - 08/16/2017 10:50 AM EST [facility] has offered pt swing bed. Pt and accept bed. will transport via car. HAM SMOKER Yissel Quintero aware; d/c paperwork will be completed by 12 noon. [facility] requests pt arrival by 1400 today; HAM SMOKER, RN, and family aware. HAM SMOKER called [facility] and was told that they prefer pt to arrive with wound vac dressing applied but clamped. HAM SMOKER applied new wound vac dressing. RN has [facility] number to call report. PASSR completed; HAM SMOKER paged to request provider signature in highlighted space. Indigo [facility] notified via email that home wound vac now cancelled; [facility] has picked up from room and order cancelled. Packet started and provided to community development director. Medicare important message explained to patient, patient signed. Copy provided to patient and signature page to OCM for inclusion in pt EMR. Radha Georges - 08/16/2017 10:34 AM EST Office of Care Management/Sheep Rancher Patient Name: Gregory Hoang : 1945 Patient has been offered a swing bed at [facility]. The patient will be transported by private transportation. No MD to MD report necessary Please call Nursing Report to [phone], ask for avionics manager. Info to accompany patient: Narcotic Prescriptions Copies of Medication Administration Records and IV sheets for past 10 days. Plan: Sheep Rancher will be available to the patient and Route Manager-RN and/or Traffic Routing Engineer for further assistance. Patient will be discharged to: [facility] [address] [place] [address] [id number] Radha Powers, Sheep Rancher Mira Black, VAMSI - 08/15/2017 10:05 PM EST [address] Flores to ask if he wanted to hold metoprolol dose. BP 95/58. OK to hold this dose Courtney Brito - 08/15/2017 3:26 PM EST Office of Care Management(OCM)/Sheep Rancher(RS)/ D/C Planning re : Patient is medically [...] status. 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 Vac in place. Rehab [...] would like information about patient's referral to: [facility] PHONE: [phone] FAX: [phone] CM spoke with RS who said that [...] rehab. Await recommendations from PT. Covering pager #[phone]. 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 Outpatient Dietitian Kaitlin Saha, RN Pager #[phone] Payam Rosales - 08/13/2017 2:37 PM EST [facility] Encounter Note Patient Name: Gregory Hoang : [id number] MR#: [id number] Admit Date: 08/06/2017 1:41 PM Hospital Day 7 days Narrative: Visited to introduce and assess acceptance of [facility] services. Pt was awake, alert, oriented and in chair and family was there. Assessment:Patient coping positively with stresses of illness/hospitalization at this time. Pt says that he is hoping to get better and his family was there. Pt says that he has family care and supportand taking one day at time. Intervention and Outcome: Provided emotional support and encouraging presence. 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 A letter describing our affiliations was reviewed with them and theywere educated about their right to choose where referrals are placed. Patient requests referral to [facility]. PHONE: [phone] FAX: [phone]. And Home NPWT (Negative Pressure Wound Therapy) aka wound vac device made available to pt. Serial # confirmed. Reviewed [facility] Proof of Delivery/Assignment of Benefits Statement(POD/AOB) Form w patient or authorized agent signing on behalf of patient. Copy of POD/AOB provided to pt and other copy faxed to [employer] @ fax# [phone] Expected date of discharge: 08/12/2017. 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 Heparin gtt continues to run. Pt [...] of : 1945 AGE 72 y.o. 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 Unsuccessful draw attempt, another cook larder will come [facility] to collect blood for PTT test. 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 Vascular resident vocational rehabilitation administrator and will forward result to the team prior to rounds. 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 [...] MD at [facility] Functional Status/Social Hx: Quit [...] left blue toes with CTA showing R EGG FACTORY WORKER pseudoaneurysm (now thrombosed) and occluded ATs [...] 2.5x80 5. Completion RLE angiogram 6. L EGG FACTORY WORKER angiogram 7. 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 - L EGG FACTORY WORKER angriogram demonstrated: High femoral bifurcation over the proximal half of the femoral head. L EGG FACTORY WORKER access in the distal L EGG FACTORY WORKER. - Closure device: Mynx Technical Procedure: [...] for a 45cm 5F Destination. V18 and Panora and QuickCross catheters were used to select [...] 5F. A stationed picture of the L EGG FACTORY WORKER was performed as the patient was noted to have a very high bifurcation. Access appeared in the distal R EGG FACTORY WORKER. Closure and sheath removal was performed [...] PM EST 1440 report called to 5 [place] nurse Tessa AGUSTIN documented in this encounter Miscellaneous Notes Plan of Care - Dory Truong RN - 08/16/2017 10:51 AM EST Problem: Patient Care Overview Goal: Plan of Care Review Outcome: Outcome (s) achieved Date Met: 08/16/17 08/14/17 1939 08/16/17 0451 Coping/Psychosocial Plan Of Care Reviewed With -- [...] sit/sit to supine -- Bed Mobility Goal, Highlands Level independent -- Bed Mobility Goal, Date [...] days -- Transfer Training Goal, Activity Type pzk-rr-vapeo/gmtgr-rc-ntk -- Transfer Train Goal, Highlands Level conditional independence -- Transfer Train Goal, [...] call cabello within reach, Hourly rounding by RN/COLOR MIXER. Bed alarm / Chair alarm. Patient-specific fall [...] Smith MD - 08/15/2017 6:28 PM EST [facility] Operative Note Patient Name: Gregory Hoang : [id number] MR#: [id number] Case Date: 08/09/2017 Surgeon: Surgeon(s) and Role: [...] 2.5x80 5. Completion RLE angiogram 6. L EGG FACTORY WORKER angiogram 7. Mynx closure Precautions/Restrictions: fall, [...] other (see comments) (or swing bed) Pager: [phone] BASSAM ELIAS, PT 08/14/2017 Inpatient Physical Therapy [...] to Achieve by discharge Gait Training Goal, Highlands Level conditional independence;set up required Gait Training [...] make referrals to. Their choices are: 1- [facility] PHONE: [phone] FAX: [phone] 2- [facility] ([facility]) [address] [place] [address] 3- [facility]) [address] [place] [address] I have discussed Medicare/Private Insurance [...] RS/CM on Wednesday to follow-up. Covering pager #[phone] for today. Plan of Care - Henrique [...] with additional findings of pseudoaneurysm on R EGG FACTORY WORKER and bilateral anterior tibial artery occlusions. [...] an outpatient once discharged. Have patient call [phone] to set up an appointment. Follow-up: Dermatology will sign-off for now. Please do not hesitate to contact us if you have any questions orconcerns. Impression and Recommendations discussed with primary team on 08/13/2017. Karo Henderson MD Resident in Dermatology Section of Dermatology, Department of Surgery [facility] Pager [phone] Patient seen and evaluated with staff [employer] Supervisor: Halima Cordero MD Section of Dermatology [facility] Level of Resident Supervision: Direct Supervision [...] as written. My physical examination confirms Dr. oHlt findings. The assessment and plan were formulated [...] 2.5x80 5. Completion RLE angiogram 6. L EGG FACTORY WORKER angiogram 7. Mynx closure Active Non-Hospital [...] home with home health ([facility] PT&OT) Pager: [phone] YASIR TELLO OT 08/12/2017 Occupational Therapy Rehabilitation [...] 2.5x80 5. Completion RLE angiogram 6. L EGG FACTORY WORKER angiogram 7. Mynx closure Past Medical [...] with 24/7 assistance and maximal services) Pager: [phone] NICHOLAS MORA, JESSIE 08/12/2017 Physical Therapy Rehabilitation [...] sit/sit to supine -- Bed Mobility Goal, Highlands Level independent -- Bed Mobility Goal, Outcome Achieved -- goal ongoing Goal: Gait Training Goal Stand Alone Therapy Goal Outcome: Ongoing (Interventions Implemented as Appropriate) 08/11/17 1310 08/12/17 1510 Gait Training Goal Gait Training Goal, Date Established 08/11/17 -- Gait Training Goal, Time to Achieve 5 - 7 days -- Gait Training Goal, Highlands Level conditional independence -- Gait Training Goal, [...] days -- Transfer Training Goal, Activity Type utc-zf-gozrt/nbajz-ai-eou -- Transfer Train Goal, Highlands Level conditional independence -- Transfer Training Goal, [...] Smith MD - 08/11/2017 2:52 PM EST [facility] Operative Note Patient Name: Gregory Hoang : [id number] MR#: [id number] Case Date: 08/11/2017 Surgeon: Surgeon(s) and Role: [...] 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 Completion RLE angiogram 6. L EGG FACTORY WORKER angiogram 7. Mynx closure He is [...] Anticipated Discharge Disposition: inpatient rehabilitation facility Pager: [phone] LAWRENCE GONZALEZ, PT 08/11/2017 Physical Therapy Rehabilitation [...] to sit/sit to supine Bed Mobility Goal, Highlands Level independent Goal: Gait Training Goal Stand Alone Therapy Goal Outcome: Ongoing (Interventions Implemented as Appropriate) 08/11/17 1310 Gait Training Goal Gait Training Goal, Date Established 08/11/17 Gait Training Goal, Time to Achieve 5 - 7 days Gait Training Goal, Highlands Level conditional independence Gait Training Goal, Assist [...] 7 days Transfer Training Goal, Activity Type pyw-uy-bocsi/cmtrk-jm-vzn Transfer Train Goal, Highlands Level conditional independence Plan of Care - [...] call cabello within reach, Hourly rounding by RN/COLOR MIXER. Bed alarm / Chair alarm. ? Patient-specific [...] 04/05/2013 Hospitalizations Within the Past 30 Days: [facility] 07/20/2017 Anticipated Length Of Stay (If known): Expected Length of Hospitalization: 5-7 days2-3 days Current Decision-Making Capacity: Alert and oriented x 4 Advance Care Planning: on file Kisha Hoang [facility] [phone] Current Coping/Education/Information Needs: pt and spouse state [...] Health/Prescription Coverage: Primary Insurance: MEDICARE Secondary Insurance: [employer] [place] Prescription Coverage: See above Preferred Pharmacy: [facility] Other: N/A Primary Care Provider: Lovely Vicente MD [phone] Patient/Caregiver Goals of Treatment: Patient plans to return home when medically ready Potential Needs for Transition of Care: Rehab/SNF: N/A Home Health: [facility]. DME: pt has a cane [...] of care planning. Kaitlin Saha RN Pager: [phone] Plan of Care - Melba Jaramillo RN [...] Overview Goal: Plan of Care Review 08/08/17 5374 Coping/Psychosocial Plan Of Care Reviewed With patient [...] call cabello within reach, Hourly rounding by RN/COLOR MIXER. Bed alarm / Chair alarm. Patient-specific fall [...] at bedside and MD TEAM Carrying pager [phone] contacted (via Radio page) and notified of [...] MD [facility] CARDIOLOGY [place], [place] 0[address] (Wo rk) 06/10/2022 Office Visit Dermatology Laura Scherer MD [facility] DR TEJA GR-DERMAT OLOGY [place], [place] 0375 (Wo rk) documented as of [...] TYPE AND SCREEN Routine 08/09/2017 1:10 AM ([facility]/CGP/SHANDA) EST BASIC METABOLIC PANEL Routine 08/09/2017 1:10 [...] 65 - 199 [facility] mg/dL [facility] LABORATORY [...] Organization Address City/State/[place] [address] (ABNORMAL) Differential, Automated (08/16/2017 5:08 AM EST) Patholo gist Method Time Signature Neutrophils % 73.9 % [facility] LABORATORY Neutr Abs (ANC) 5.37 1.70 - [facility] 6.10 [facility] x10(3)/[facility] LABORATORY Lymphocytes % 10.1 % [facility] LABORATORY Lymphocytes Abs 0.7 (L) 0.9 - 3.2 [facility] x10(3)/[facility] LABORATORY Monocytes % 10.1 % [facility] LABORATORY Monocyte Abs 0.7 0.3 - 0.9 [facility] x10(3)/[facility] LABORATORY Eosinophils % 5.1 % [facility] LABORATORY Eosinophils Abs 0.4 0.0 - 0.4 [facility] x10(3)/[facility] LABORATORY Basophils % 0.4 % [facility] LABORATORY Basophils Abs 0.0 0.0 - 0.1 [facility] x10(3)/[facility] LABORATORY Immature Gran % 0.40 % [facility]ATORY Comment: Immature granulocytes(IG's)percentage an d absolute count will include metamyelocytes, myelocytes, and promyelo cytes. Blood smears from CBCs yielding IG's will be scanned manually for concor dance. If this scan disagrees with the automated IG or if promyelocytes are not ed, a manual differential will be performed. Melisa Gran Abs 0.03 0.00 - 0.04 x10(3)/[facility] LABORATORY Specimen Anatomical Collection Method Collection Time Receive d Time (Source) Location / / Volume Laterality Blood specimen 08/16/2017 5:08 AM 018 5:20 (specimen) EST AM EST Resulting Agency Comment Spec In Lab Yonathan Smith MD HEMATOLOGY ORDERABLES Performing Organization Address City/State/[place] [address] (ABNORMAL) Hemogram (08/16/2017 5:08 AM EST) Analysis Performed At Patho logist Time Signature WBC 7.3 4.0 - 9.5 [facility] x10(3)/[facility] LABORATORY RBC 3.36 (L) 4.58 - [facility] 5.54 [facility] x10(6)/[facility] LABORATORY Hemoglobin 9.7 (L) 13.7 - [facility] 16.[facility] gm/dL [facility] LABORATORY Hematocrit 30.3 (L) 40.5 - [facility] 48.5 % [facility] LABORATORY MCV 90.2 82.9 - [facility] 93.1 [facility] LABORATORY MCH 28.9 27.5 - [place]BARA RYAN 32.1 pg [facility] LABORATORY MCHC 32.0 32.0 - [facility] 35.7 gm/dL [facility] LABORATORY Platelets 282 145 - 357 [facility] x10(3)/[facility] LABORATORY RDWSD 53.9 (H) 36.0 - [facility] 45.0 [facility] LABORATORY RDWCV 16.5 (H) 11.4 - [facility] 13.8 % [facility] LABORATORY MPV 9.0 7.6 - 12.9 [facility] LABORATORY nRBC % Auto 0.0 % [facility] LABORATORY nRBC Abs Auto 0.000 0.000 - [facility] 0.000 [facility] x10(3)/[facility] LABORATORY Specimen Anatomical Collection Method Collection Time Receive d Time (Source) Location / / Volume Laterality Blood specimen 08/16/2017 5:08 AM 018 5:20 (specimen) EST AM EST Resulting Agency Comment Spec In Lab Yonathan Smith MD HEMATOLOGY ORDERABLES Performing Organization Address City/State/[place] [address] (ABNORMAL) Basic Metabolic Panel (non-fasting) (08/16/2017 5:08 AM EST) athologist Signature Glucose Lvl 141 65 - 199 [facility] mg/dL [facility] LABORATORY [...] estions. Chloride 99 98 - 107 mmol/L [facility] [...] or in patients with acute kidney failure. [email or web address] Specimen Anatomical Collection Method Collection Time Receive d Time (Source) Location / / Volume Laterality Blood specimen 08/16/2017 5:08 AM 018 5:20 (specimen) EST AM EST Resulting Agency Comment Spec In Lab Yonathan Smith MD CHEMISTRY ORDERABLES Performing Organization Address City/State/[place] [address] (ABNORMAL) Prothrombin Time (08/16/2017 5:08 AM EST) athologist Signature PT 25.2 (H) 11.8 - 14.0 [facility] LABORATORY INR 2.3 (H) 0.9 - 1.1 [facility] LABORATORY Comment: An INR <2.0 [...] Organization Address City/[facility]/ZIP Code Phon e Number [address] POCT Glucose (08/16/2017 4:09 AM EST) athologist Signature POC Glucose 147 65 - 199 [place]BAR[place] mg/dL [facility] LABORATORY Comment: [...] Organization Address City/[facility]/[place] [address] POCT Glucose (08/15/2017 11:56 PM EST) athologist Signature POC Glucose 176 65 - 199 [place]BAR[place] mg/dL [facility] LABORATORY Comment: [...] Organization Address City/State/[place] [address] POCT Glucose (08/15/2017 8:05 PM EST) athologist Signature POC Glucose 136 65 - 199 [place]BAR[place] mg/dL [facility] LABORATORY Comment: [...] Address City/State/ZIP Code Phon e Number [address] (ABNORMAL) POCT Glucose (08/15/2017 4:50 PM EST) athologist Signature POC Glucose 232 (H) 65 - 199 [place]HA[place] mg/dL [facility] LABORATORY Comment: [...] Organization Address City/[facility]/[place] [address] POCT Glucose (08/15/2017 12:04 PM EST) athologist Signature POC Glucose 135 65 - 199 BARBARA ZHAORY[place] mg/dL [facility] LABORATORY Comment: [...] Organization Address City/[facility]/[place] [address] POCT Glucose (08/15/2017 7:36 AM EST) athologist Signature POC Glucose 124 65 - 199 [place]BARA RYAN mg/dL [facility] LABORATORY Comment: [...] Organization Address City/State/[place] [address] (ABNORMAL) Differential, Automated (08/15/2017 6:22 AM EST) [facility] Method Time Signature Neutrophils % 76.1 % [facility] LABORATORY Neutr Abs (ANC) 6.62 (H) 1.70 - [facility] 6.10 [facility] x10(3)/[facility] L LABORATORY Lymphocytes % 9.3 % [facility] LABORATORY Lymphocytes Abs 0.8 (L) 0.9 - 3.2 [facility] x10(3)/[facility] LABORATORY Monocytes % 9.4 % [facility] LABORATORY Monocyte Abs 0.8 0.3 - 0.9 [facility] x10(3)/[facility] LABORATORY Eosinophils % 4.0 % [facility] LABORATORY Eosinophils Abs 0.4 0.0 - 0.4 [facility] x10(3)/[facility] LABORATORY Basophils % 0.6 % [facility] LABORATORY Basophils Abs 0.0 0.0 - 0.1 [facility] x10(3)/[facility] LABORATORY Immature Gran % 0.60 % [facility] LABORATORY Comment: Immature granulocytes(IG's)percentage an d absolute count will include metamyelocytes, myelocytes, and promyelo cytes. Blood smears from CBCs yielding IG's will be scanned manually for concor dance. If this scan disagrees with the automated IG or if promyelocytes are not ed, a manual differential will be performed. Melisa Gran Abs 0.05 (H) 0.00 - 0.04 x10(3)/[facility] LABORATORY Specimen Anatomical Collection Method Collection Time Receive d Time (Source) Location / / Volume Laterality Blood specimen 08/15/2017 6:22 AM 018 6:33 (specimen) EST AM EST Resulting Agency Comment Spec In Lab Yonathan Smith MD HEMATOLOGY ORDERABLES Performing Organization Address City/State/[place] [address] (ABNORMAL) Hemogram (08/15/2017 6:22 AM EST) Analysis Performed At Patho logist Time Signature WBC 8.7 4.0 - 9.5 [facility] x10(3)/[facility] LABORATORY RBC 3.21 (L) 4.58 - [place] RYAN 5.54 [facility] x10(6)/[facility] LABORATORY Hemoglobin 9.1 (L) 13.7 - [facility] 16.[facility] gm/dL [facility] LABORATORY Hematocrit 29.0 (L) 40.5 - [facility] 48.5 % [facility] LABORATORY MCV 90.3 82.9 - [facility]1 [facility] LABORATORY MCH 28.3 27.5 - [place] RYAN 32.1 pg [facility] LABORATORY MCHC 31.4 (L) 32.0 - [facility] RYAN 35.7 gm/dL [facility] LABORATORY Platelets 254 145 - 357 [facility] x10(3)/[facility] LABORATORY RDWSD 53.9 (H) 36.0 - [place] RYAN 45.0 [facility] LABORATORY RDWCV 16.3 (H) 11.4 - [facility] RYAN 13.8 % [facility] LABORATORY MPV 8.8 7.6 - 12.9 [facility] LABORATORY nRBC % Auto 0.0 % [facility] LABORATORY nRBC Abs Auto 0.000 0.000 - [place] RYAN 0.000 [facility] x10(3)/[facility] LABORATORY Specimen Anatomical Collection Method Collection Time Receive d Time (Source) Location / / Volume Laterality Blood specimen 08/15/2017 6:22 AM 018 6:33 (specimen) EST AM EST Resulting Agency Comment Spec In Lab Yonathan Smith MD HEMATOLOGY ORDERABLES Performing Organization Address City/State/[place] [address] (ABNORMAL) Basic Metabolic Panel (non-fasting) (08/15/2017 6:22 AM EST) P athologist Signature Glucose Lvl 118 65 - 199 [facility] mg/dL [facility] LABORATORY [...] 107 mmol/L [facility] LABORATORY CO2 29 22 - 31 mmol/L [facility] LABORATORY Anion Gap 11 5 - 15 mmol/L [facility] LABORATORY Calcium 8.8 8.5 - 10.5 mg/dL [facility] LABORATORY Estimated GFR >60 >=60 [facility] LABORATORY Comment: The reported eGFR should be multiplied b y 1.2 for patients. The MDRD is not an appropriate measure o f renal function for patients with body mass extremes or in patients with acute kidney failure. [email or web address] [email or web address] Specimen Anatomical Collection Method Collection Time Receive d Time (Source) Location / / Volume Laterality Blood specimen 08/15/2017 6:22 AM 018 6:33 (specimen) EST AM EST Resulting Agency Comment Spec In Lab Yonathan Smith MD CHEMISTRY ORDERABLES Performing Organization Address City/State/[place] [address] (ABNORMAL) Prothrombin Time (08/15/2017 6:22 AM EST) P athologist Signature PT 21.9 (H) 11.8 - 14.0 [facility] LABORATORY INR 1.9 (H) 0.9 - 1.1 [facility] LABORATORY Comment: An INR <2.0 [...] Address City/State/ZIP Code Phon e Number [address] POCT Glucose (08/15/2017 4:33 AM EST) athologist Signature POC Glucose 164 65 - 199 [facility] mg/dL [facility] LABORATORY Comment: [...] Organization Address City/State/[place] [address] POCT Glucose (08/15/2017 12:12 AM EST) athologist Signature POC Glucose 89 65 - 199 [facility] RYAN mg/dL [facility] LABORATORY Comment: [...] Organization Address City/State/[place] [address] (ABNORMAL) POCT Glucose (08/14/2017 8:07 PM EST) athologist Signature POC Glucose 204 (H) 65 - 199 [facility] ZHAORYAN mg/dL [facility] LABORATORY Comment: [...] Address City/State/ZIP Code Phon e Number [address] POCT Glucose (08/14/2017 5:11 PM EST) athologist Signature POC Glucose 174 65 - 199 [facility] mg/dL [facility] LABORATORY Comment: Supplemental ranges: <140 mg/dL before meals <180 mg/dL all other times of the day Specimen Anatomical Collection Method Collection Time Receive d Time (Source) Location / / Volume Laterality Blood specimen 08/14/2017 5:11 PM 018 5:11 (specimen) EST PM EST Yonathan Smtih MD POINT OF CARE TEST ORDERABLE S Performing Organization Address City/State/ZIP Code Phon e Number [address] POCT Glucose (08/14/2017 12:10 PM EST) athologist Signature POC Glucose 141 65 - 199 [facility] RYAN mg/dL [facility] LABORATORY Comment: [...] Address City/State/ZIP Code Phon e Number [address] POCT Glucose (08/14/2017 8:07 AM EST) P athologist Signature POC Glucose 158 65 - 199 [facility] mg/dL [facility] LABORATORY [...] Organization Address City/State/[place] [address] (ABNORMAL) Differential, Automated (08/14/2017 4:52 AM EST) Patholo gist Method Time Signature Neutrophils % 78.6 % [facility] LABORATORY Neutr Abs (ANC) 7.70 (H) 1.70 - [facility] 6.10 [facility] x10(3)/[facility] L LABORATORY Lymphocytes % 7.8 % [facility] LABORATORY Lymphocytes Abs 0.8 (L) 0.9 - 3.2 [facility] x10(3)/[facility] LABORATORY Monocytes % 8.8 % [facility] LABORATORY Monocyte Abs 0.9 0.3 - 0.9 [facility] x10(3)/[facility] LABORATORY Eosinophils % 4.0 % [facility] LABORATORY Eosinophils Abs 0.4 0.0 - 0.4 [facility] x10(3)/[facility] LABORATORY Basophils % 0.5 % [facility] LABORATORY Basophils Abs 0.0 0.0 - 0.1 [facility] x10(3)/[facility] LABORATORY Immature Gran % 0.30 % [facility] LABORATORY Comment: Immature granulocytes(IG's)percentage an d absolute count will include metamyelocytes, myelocytes, and promyelo cytes. Blood smears from CBCs yielding IG's will be scanned manually for concor dance. If this scan disagrees with the automated IG or if promyelocytes are not ed, a manual differential will be performed. Melisa Gran Abs 0.03 0.00 - 0.04 x10(3)/[facility] LABORATORY Specimen Anatomical Collection Method Collection Time Receive d Time (Source) Location / / Volume Laterality Blood specimen 08/14/2017 4:52 AM 018 5:08 (specimen) EST AM EST Resulting Agency Comment Spec In Lab Yonathan Smith MD HEMATOLOGY ORDERABLES Performing Organization Address City/State/[place] [address] (ABNORMAL) Hemogram (08/14/2017 4:52 AM EST) Analysis Performed At Patho logist Time Signature WBC 9.8 (H) 4.0 - 9.5 [facility] x10(3)/[facility] LABORATORY RBC 3.32 (L) 4.58 - [facility] 5.54 [facility] x10(6)/[facility] LABORATORY Hemoglobin 9.5 (L) 13.7 - [facility] 16.5 gm/dL [facility] LABORATORY Hematocrit 30.3 (L) 40.5 - [facility] 48.5 % [facility] LABORATORY MCV 91.3 82.9 - [facility] 93.1 [facility] LABORATORY MCH 28.6 27.5 - [facility] 32.1 pg [facility] LABORATORY MCHC 31.4 (L) 32.0 - [facility] 35.7 gm/dL [facility] LABORATORY Platelets 263 145 - 357 [facility] x10(3)/[facility] LABORATORY RDWSD 54.8 (H) 36.0 - [facility] 45.0 [facility] LABORATORY RDWCV 16.5 (H) 11.4 - [facility] 13.8 % [facility] LABORATORY MPV 9.1 7.6 - 12.9 [facility] LABORATORY nRBC % Auto 0.0 % [facility] LABORATORY nRBC Abs Auto 0.000 0.000 - [facility] 0.000 [facility] x10(3)/[facility] LABORATORY Specimen Anatomical Collection Method Collection Time Receive d Time (Source) Location / / Volume Laterality Blood specimen 08/14/2017 4:52 AM 018 5:08 (specimen) EST AM EST Resulting Agency Comment Spec In Lab Yonathan Smith MD HEMATOLOGY ORDERABLES Performing Organization Address City/[facility]/[place] [address] (ABNORMAL) Prothrombin Time (08/14/2017 4:52 AM EST) P athologist Signature PT 18.8 (H) 11.8 - 14.0 [facility] LABORATORY INR 1.6 (H) 0.9 - 1.1 [facility] LABORATORY Comment: An INR <2.0 [...] Organization Address City/State/[place] [address] (ABNORMAL) Basic Metabolic Panel (non-fasting) (08/14/2017 4:52 AM EST) P athologist Signature Glucose Lvl 135 65 - 199 [facility] mg/dL [facility] LABORATORY [...] estions. Chloride 100 98 - 107 mmol/L [facility] [...] or in patients with acute kidney failure. [email or web address] [email or web address] Specimen Anatomical Collection Method Collection Time Receive d Time (Source) Location / / Volume Laterality Blood specimen 08/14/2017 4:52 AM 018 5:08 (specimen) EST AM EST Resulting Agency Comment Spec In Lab Yonathan Smith MD CHEMISTRY ORDERABLES Performing Organization Address City/[facility]/ZIP Code Phon e Number [address] POCT Glucose (08/14/2017 3:56 AM EST) athologist Signature POC Glucose 135 65 - 199 [facility]/dL [facility] LABORATORY [...] Organization Address City/[facility]/ZIP Code Phon e Number [address] POCT Glucose (08/13/2017 11:13 PM EST) athologist Signature POC Glucose 118 65 - 199 [facility] mg/dL [facility] LABORATORY [...] Organization Address City/State/[place] [address] (ABNORMAL) POCT Glucose (08/13/2017 8:08 PM EST) athologist Signature POC Glucose 204 (H) 65 - 199 [facility] mg/dL [facility] LABORATORY Comment: [...] Organization Address City/[facility]/[place] [address] POCT Glucose (08/13/2017 4:02 PM EST) athologist Signature POC Glucose 145 65 - 199 [facility] ZHAORYAN mg/dL [facility] LABORATORY Comment: [...] Organization Address City/State/[place] [address] POCT Glucose (08/13/2017 11:31 AM EST) athologist Signature POC Glucose 179 65 - 199 [facility]AN mg/dL [facility] LABORATORY Comment: [...] Organization Address City/[facility]/[place] [address] (ABNORMAL) POCT Glucose (08/13/2017 10:16 AM EST) P athologist Signature POC Glucose 211 (H) 65 - 199 [facility] mg/dL [facility] LABORATORY [...] Organization Address City/State/[place] [address] JULIAN, legs, multiple levels (08/13/2017 7:42 AM EST) Component Value Ref Test Analysis Performed At Patholo gist Range Method Time Signature VB Text Department: Vascular Surgery Lab VASCUBASE Report Patient: [id number] (GREGORY HOANG) CPT: 12404 ICD10: I99.8 Referring Physician: YONATHAN SMITH ?? Indications: s/p R 1,2,3 toe amps with red left foot, need n ew baseline Diabetes mellitus: yes ICD10 Diagnosis Code: I99.8 Findings: Right ?Pressure (mm Hg) ?? JULIAN ??Waveform ?TBI ?? Brachial Artery ?138 ? Dorsalis Pedis (Ankle) Arter y ?132 ? 0.94 ??Baldwin- Biphasic ? Posterior Tibial (Ankle) Art anila ??154 ? 1.10 ??Baldwin-Biphasic ? Fourth Toe ? 67 ? 0.48 [...] 65 - 199 [facility] mg/dL [facility] LABORATORY [...] Organization Address City/State/[place] [address] (ABNORMAL) Differential, Automated (08/13/2017 5:33 AM EST) Patholo gist Method Time Signature Neutrophils % 77.8 % [facility] LABORATORY Neutr Abs (ANC) 7.83 (H) 1.70 - [facility] 6.10 [facility] x10(3)/[facility] L LABORATORY Lymphocytes % 8.4 % [facility] LABORATORY Lymphocytes Abs 0.8 (L) 0.9 - 3.2 [facility] x10(3)/[facility] LABORATORY Monocytes % 8.3 % [facility] LABORATORY Monocyte Abs 0.8 0.3 - 0.9 [facility] x10(3)/[facility] LABORATORY Eosinophils % 4.6 % [facility] LABORATORY Eosinophils Abs 0.5 (H) 0.0 - 0.4 [facility] x10(3)/[facility] LABORATORY Basophils % 0.5 % [facility] LABORATORY Basophils Abs 0.0 0.0 - 0.1 [facility] x10(3)/[facility] LABORATORY Immature Gran % 0.40 % [facility] LABORATORY Comment: Immature granulocytes(IG's)percentage an d absolute count will include metamyelocytes, myelocytes, and promyelo cytes. Blood smears from CBCs yielding IG's will be scanned manually for concor dance. If this scan disagrees with the automated IG or if promyelocytes are not ed, a manual differential will be performed. Melisa Gran Abs 0.04 0.00 - 0.04 x10(3)/[facility] LABORATORY Specimen Anatomical Collection Method Collection Time Receive d Time (Source) Location / / Volume Laterality Blood specimen 08/13/2017 5:33 AM 018 6:04 (specimen) EST AM EST Resulting Agency Comment Spec In Lab Yonathan Smith MD HEMATOLOGY ORDERABLES Performing Organization Address City/State/[place] [address] (ABNORMAL) Hemogram (08/13/2017 5:33 AM EST) Analysis Performed At Patho logist Time Signature WBC 10.1 (H) 4.0 - 9.5 [facility] x10(3)/[facility] LABORATORY RBC 3.21 (L) 4.58 - [facility] 5.54 [facility] x10(6)/[facility] LABORATORY Hemoglobin 9.2 (L) 13.7 - [facility] 16.5 gm/dL [facility] LABORATORY Hematocrit 29.6 (L) 40.5 - [facility] DAVIS 48.5 % [facility] LABORATORY MCV 92.2 82.9 - [facility] 93.1 [facility] LABORATORY MCH 28.7 27.5 - [facility] OL[facility]SC[facility] 32.1 pg [facility] LABORATORY MCHC 31.1 (L) 32.0 - [facility] RYAN 35.7 gm/dL [facility] LABORATORY Platelets 263 145 - 357 [facility] x10(3)/[facility] LABORATORY RDWSD 54.8 (H) 36.0 - [facility] RYAN 45.0 [facility] LABORATORY RDWCV 16.4 (H) 11.4 - [facility] RYAN 13.8 % [facility] LABORATORY MPV 9.2 7.6 - 12.9 [facility] LABORATORY nRBC % Auto 0.0 % [facility] LABORATORY nRBC Abs Auto 0.000 0.000 - [facility] RYAN 0.000 [facility] x10(3)/[facility] LABORATORY Specimen Anatomical Collection Method Collection Time Receive d Time (Source) Location / / Volume Laterality Blood specimen 08/13/2017 5:33 AM 018 6:04 (specimen) EST AM EST Resulting Agency Comment Spec In Lab Yonathan Smith MD HEMATOLOGY ORDERABLES Performing Organization Address City/State/[place] [address] (ABNORMAL) Prothrombin Time (08/13/2017 5:33 AM EST) P athologist Signature PT 17.3 (H) 11.8 - 14.0 [facility] LABORATORY INR 1.4 (H) 0.9 - 1.1 [facility] LABORATORY Comment: An INR <2.0 [...] Organization Address City/State/[place] [address] (ABNORMAL) Basic Metabolic Panel (non-fasting) (08/13/2017 5:33 AM EST) athologist Signature Glucose Lvl 126 65 - 199 [facility] mg/dL [facility] LABORATORY [...] estions. Chloride 100 98 - 107 mmol/L [facility] LABORATORY CO2 29 22 - 31 mmol/L [facility] LABORATORY Anion Gap 12 5 - 15 mmol/L [facility] LABORATORY Calcium 7.9 (L) 8.5 - 10.5 mg/dL [facility] LABORATORY Estimated GFR >60 >=60 [facility] LABORATORY Comment: The reported eGFR should be multiplied b y 1.2 for patients. The MDRD is not an appropriate measure o f renal function for patients with body mass extremes or in patients with acute kidney failure. [email or web address]/DHnkdep [email or web address] Specimen Anatomical Collection Method Collection Time Receive d Time (Source) Location / / Volume Laterality Blood specimen 08/13/2017 5:33 AM 018 6:04 (specimen) EST AM EST Resulting Agency Comment Spec In Lab Yonathan Smith MD CHEMISTRY ORDERABLES Performing Organization Address City/[facility]/ZIP Code Phon e Number [address] POCT Glucose (08/13/2017 4:29 AM EST) athologist Signature POC Glucose 111 65 - 199 [facility] RYAN mg/dL [facility] LABORATORY Comment: [...] Organization Address City/[facility]/[place] [address] POCT Glucose (08/12/2017 11:28 PM EST) athologist Signature POC Glucose 164 65 - 199 [facility] RYAN mg/dL [facility] LABORATORY Comment: [...] Organization Address City/[facility]/[place] [address] (ABNORMAL) POCT Glucose (08/12/2017 7:40 PM EST) athologist Signature POC Glucose 209 (H) 65 - 199 [facility] RYAN mg/dL [facility] LABORATORY Comment: [...] Organization Address City/[facility]/ZIP Code Phon e Number [address] POCT Glucose (08/12/2017 4:24 PM EST) athologist Signature POC Glucose 161 65 - 199 BARBAR[facility] ZHAORYAN mg/dL [facility] LABORATORY Comment: [...] Organization Address City/[facility]/ZIP Code Phon e Number [address] POCT Glucose (08/12/2017 12:00 PM EST) athologist Signature POC Glucose 167 65 - 199 [facility] RYAN mg/dL [facility] LABORATORY Comment: [...] Organization Address City/[facility]/ZIP Code Phon e Number [address] POCT Glucose (08/12/2017 7:25 AM EST) athologist Signature POC Glucose 152 65 - 199 [facility] ZHAORYAN mg/dL [facility] LABORATORY Comment: [...] Organization Address City/State/[place] [address] (ABNORMAL) Differential, Automated (08/12/2017 6:29 AM EST) [facility] Method Time Signature Neutrophils % 78.7 % [facility] LABORATORY Neutr Abs (ANC) 7.94 (H) 1.70 - [facility] 6.10 [facility] x10(3)/[facility] LABORATORY Lymphocytes % 8.8 % [facility] LABORATORY Lymphocytes Abs 0.9 0.9 - 3.2 [facility] x10(3)/[facility] LABORATORY Monocytes % 7.8 % [facility] LABORATORY Monocyte Abs 0.8 0.3 - 0.9 [facility] x10(3)/[facility] LABORATORY Eosinophils % 3.9 % [facility] LABORATORY Eosinophils Abs 0.4 0.0 - 0.4 [facility] x10(3)/[facility] LABORATORY Basophils % 0.3 % [facility] LABORATORY Basophils Abs 0.0 0.0 - 0.1 [facility] x10(3)/[facility] LABORATORY Immature Gran % 0.50 % [facility] LABORATORY Comment: Immature granulocytes(IG's)percentage an d absolute count will include metamyelocytes, myelocytes, and promyelo cytes. Blood smears from CBCs yielding IG's will be scanned manually for concor dance. If this scan disagrees with the automated IG or if promyelocytes are not ed, a manual differential will be performed. Melisa Gran Abs 0.05 (H) 0.00 - 0.04 x10(3)/[facility] LABORATORY Specimen Anatomical Collection Method Collection Time Receive d Time (Source) Location / / Volume Laterality Blood specimen 08/12/2017 6:29 AM 018 6:38 (specimen) EST AM EST Resulting Agency Comment Spec In Lab Yonathan Smith MD HEMATOLOGY ORDERABLES Performing Organization Address City/[facility]/[place] [address] (ABNORMAL) Hemogram (08/12/2017 6:29 AM EST) Analysis Performed At Patho logist Time Signature WBC 10.1 (H) 4.0 - 9.5 [facility] x10(3)/[facility] LABORATORY RBC 3.02 (L) 4.58 - [facility] 5.54 [facility] x10(6)/[facility] LABORATORY Hemoglobin 8.7 (L) 13.7 - [facility] 16.5 gm/dL [facility] LABORATORY Hematocrit 28.1 (L) 40.5 - [facility] 48.5 % [facility] LABORATORY MCV 93.0 82.9 - [facility] 93.1 [facility] LABORATORY MCH 28.8 27.5 - [facility] 32.1 pg [facility] LABORATORY MCHC 31.0 (L) 32.0 - [facility] 35.7 gm/dL [facility] LABORATORY Platelets 223 145 - 357 [facility] x10(3)/[facility] LABORATORY RDWSD 56.1 (H) 36.0 - [facility] 45.0 [facility] LABORATORY RDWCV 16.4 (H) 11.4 - [facility] 13.8 % [facility] LABORATORY MPV 9.0 7.6 - 12.9 [facility] LABORATORY nRBC % Auto 0.0 % [facility] LABORATORY nRBC Abs Auto 0.000 0.000 - [facility] 0.000 [facility] x10(3)/[facility] LABORATORY Specimen Anatomical Collection Method Collection Time Receive d Time (Source) Location / / Volume Laterality Blood specimen 08/12/2017 6:29 AM 018 6:38 (specimen) EST AM EST Resulting Agency Comment Spec In Lab Yonathan Smith MD HEMATOLOGY ORDERABLES Performing Organization Address City/State/[place] [address] (ABNORMAL) Prothrombin Time (08/12/2017 6:29 AM EST) P athologist Signature PT 16.1 (H) 11.8 - 14.0 [facility] LABORATORY INR 1.3 (H) 0.9 - 1.1 [facility] LABORATORY Comment: An INR <2.0 [...] Organization Address City/State/ZIP Code Phon e Number [place] [id number] HOSPITAL LABORATORY Drive (ABNORMAL) Basic Metabolic Panel (non-fasting) (08/12/2017 6:29 AM EST) athologist Signature Glucose Lvl 151 65 - 199 [facility] mg/dL [facility] LABORATORY [...] estions. Chloride 99 98 - 107 mmol/L [facility] CO2 28 22 - 31 mmol/L [facility] Anion Gap 11 5 - 15 mmol/L [facility] Calcium 7.9 (L) 8.5 - 10.5 mg/dL [facility] Estimated GFR >60 >=60 [facility] Comment: The reported eGFR should be multiplied b y 1.2 for patients. The MDRD is not an appropriate measure o f renal function for patients with body mass extremes or in patients with acute kidney failure. [email or web address]/DHnkdep [email or web address] Specimen Anatomical Collection Method Collection Time Receive d Time (Source) Location / / Volume Laterality Blood specimen 08/12/2017 6:29 AM 018 6:38 (specimen) EST AM EST Resulting Agency Comment Spec In Lab Yonathan Smith MD CHEMISTRY ORDERABLES Performing Organization Address City/[facility]/ZIP [facility] Phon e Number [address] POCT Glucose (08/12/2017 4:08 AM EST) athologist Signature POC Glucose 181 65 - 199 [facility] LABORATORY [...] Organization Address City/[facility]/[place] [address] (ABNORMAL) POCT Glucose (08/12/2017 12:17 AM EST) athologist Signature POC Glucose 221 (H) 65 - 199 [facility]dL [facility] Comment: [...] Organization Address City/[facility]/[place] [address] (ABNORMAL) POCT Glucose (08/11/2017 8:52 PM EST) athologist Signature POC Glucose 221 (H) 65 - 199 [facility] mg/dL [facility] Comment: [...] Organization Address City/State/[place] [address] POCT Glucose (08/11/2017 5:59 PM EST) athologist Signature POC Glucose 169 65 - 199 [facility] mg/dL [facility] Comment: [...] Organization Address City/[facility]/[place] [address] (ABNORMAL) POCT Glucose (08/11/2017 4:08 PM EST) athologist Signature POC Glucose 240 (H) 65 - 199 [facility] mg/dL [facility] Comment: [...] Organization Address City/State/[place] [address] POCT Glucose (08/11/2017 12:04 PM EST) athologist Signature POC Glucose 182 65 - 199 [facility] mg/dL [facility] Comment: [...] Address City/State/ZIP Code Phon e Number [address] POCT Glucose (08/11/2017 7:31 AM EST) athologist [facility] POC Glucose 156 65 - 199 [facility] mg/dL [facility] Comment: [...] Address City/State/ZIP Code Phon e Number [address] (ABNORMAL) Differential, Automated (08/11/2017 6:16 AM EST) [facility] gist Method Time Signature Neutrophils % 83.7 % [facility] Neutr Abs (ANC) 10.76 (H) 1.70 - [facility] 6.10 [facility] x10(3)/[facility] L LABORATORY Lymphocytes % 6.0 % [facility] Lymphocytes Abs 0.8 (L) 0.9 - 3.2 [facility] x10(3)/[facility] LABORATORY Monocytes % 7.5 % [facility] Monocyte Abs 1.0 (H) 0.3 - 0.9 [facility] x10(3)/[facility] LABORATORY Eosinophils % 2.0 % [facility] Eosinophils Abs 0.3 0.0 - 0.4 [facility] x10(3)/[facility] LABORATORY Basophils % 0.3 % [facility] Basophils Abs 0.0 0.0 - 0.1 [facility] x10(3)/[facility] LABORATORY Immature Gran % 0.50 % [facility] Comment: Immature granulocytes(IG's)percentage an d absolute count will include metamyelocytes, myelocytes, and promyelo cytes. Blood smears from CBCs yielding IG's will be scanned manually for concor dance. If this scan disagrees with the automated IG or if promyelocytes are not ed, a manual differential will be performed. Melisa Gran Abs 0.06 (H) 0.00 - 0.04 x10(3)/[facility] LABORATORY Specimen Anatomical Collection Method Collection Time Receive d Time (Source) Location / / Volume Laterality Blood specimen 08/11/2017 6:16 AM 018 6:24 (specimen) EST AM EST Resulting Agency Comment Spec In Lab Yonathan Smith MD HEMATOLOGY ORDERABLES Performing Organization Address City/State/[place] [address] (ABNORMAL) Hemogram (08/11/2017 6:16 AM EST) Analysis Performed At Patho logist Time Signature WBC 12.9 (H) 4.0 - 9.5 [facility] x10(3)/[facility] LABORATORY RBC 3.28 (L) 4.58 - [facility] 5.54 [facility] x10(6)/[facility] LABORATORY Hemoglobin 9.5 (L) 13.7 - [facility] 16.5 gm/dL [facility]ORY Hematocrit 29.8 (L) 40.5 - [facility] 48.5 % [facility] MCV 90.9 82.9 - [facility] 93.1 fL [facility] MCH 29.0 27.5 - [facility] 32.1 pg [facility] MCHC 31.9 (L) 32.0 - [facility] 35.7 gm/dL [facility] LABORATORY Platelets 236 145 - 357 [facility] x10(3)/[facility] LABORATORY RDWSD 53.5 (H) 36.0 - [facility] 45.0 [facility] LABORATORY RDWCV 16.3 (H) 11.4 - [facility] 13.8 % [facility] LABORATORY MPV 8.8 7.6 - 12.9 [facility] LABORATORY nRBC % Auto 0.0 % [facility] nRBC Abs Auto 0.000 0.000 - [facility] 0.000 [facility] x10(3)/[facility] LABORATORY Specimen Anatomical Collection Method Collection Time Receive d Time (Source) Location / / Volume Laterality Blood specimen 08/11/2017 6:16 AM 018 6:24 (specimen) EST AM EST Resulting Agency Comment Spec In Lab Yonathan Smith MD HEMATOLOGY ORDERABLES Performing Organization Address City/[facility] [place] [address] (ABNORMAL) Prothrombin Time (08/11/2017 6:16 AM EST) P athologist Signature PT 15.5 (H) 11.8 - 14.0 [facility] LABORATORY INR 1.3 (H) 0.9 - 1.1 [facility] Comment: An INR <2.0 [...] Organization Address City/[facility]/ZIP [facility] [place] [address] Basic Metabolic Panel (non-fasting) (08/11/2017 6:16 AM EST) P athologist Signature Glucose Lvl 139 65 - 199 [facility] mg/dL [facility] LABORATORY [...] 107 mmol/L [facility] CO2 27 22 - 31 mmol/L [facility] Anion Gap 13 5 - 15 mmol/L [facility] Calcium 8.5 8.5 - 10.5 mg/dL [facility] Estimated GFR >60 >=60 [facility] Comment: The reported eGFR should be multiplied b y 1.2 for patients. The MDRD is not an appropriate measure o f renal function for patients with body mass extremes or in patients with acute kidney failure. http://[employer]/DHnkdep http://[email or web address] Specimen Anatomical Collection Method Collection Time Receive d Time (Source) Location / / Volume Laterality Blood specimen 08/11/2017 6:16 AM 018 6:24 (specimen) EST AM EST Resulting Agency Comment Spec In Lab Yonathan Smith MD CHEMISTRY ORDERABLES Performing Organization Address City/State/[place] [address] POCT Glucose (08/11/2017 4:07 AM EST) athologist Signature POC Glucose 162 65 - 199 [facility] mg/dL [facility] LABORATORY [...] Organization Address City/[facility]/[place] [address] POCT Glucose (08/10/2017 11:59 PM EST) athologist Signature POC Glucose 166 65 - 199 [facility] mg/dL [facility] Comment: [...] Address City/State/ZIP Code Phon e Number [address] POCT Glucose (08/10/2017 8:12 PM EST) athologist Signature POC Glucose 156 65 - 199 [facility] mg/dL [facility] Comment: [...] Organization Address City/State/[place] [address] (ABNORMAL) POCT Glucose (08/10/2017 4:42 PM EST) athologist Signature POC Glucose 211 (H) 65 - 199 [facility] mg/dL [facility] Comment: [...] Organization Address City/State/ZIP Code Phon e Number [place] [id number] HOSPITAL LAB[address]ORY Drive (ABNORMAL) Differential, Automated (08/10/2017 2:30 PM EST) [facility] Method Time Signature Neutrophils % 87.6 % [facility] Neutr Abs (ANC) 9.90 (H) 1.70 - [facility] 6.10 [facility] x10(3)/[facility] L LABORATORY Lymphocytes % 4.3 % [facility] Lymphocytes Abs 0.5 (L) 0.9 - 3.2 [facility] x10(3)/[facility] LABORATORY Monocytes % 6.0 % [facility] Monocyte Abs 0.7 0.3 - 0.9 [facility] x10(3)/[facility] LABORATORY Eosinophils % 1.1 % [facility] Eosinophils Abs 0.1 0.0 - 0.4 [facility] x10(3)/[facility] LABORATORY Basophils % 0.4 % [facility] Basophils Abs 0.0 0.0 - 0.1 [facility] x10(3)/[facility] LABORATORY Immature Gran % 0.60 % [facility] Comment: Immature granulocytes(IG's)percentage an d absolute count will include metamyelocytes, myelocytes, and promyelo cytes. Blood smears from CBCs yielding IG's will be scanned manually for concor dance. If this scan disagrees with the automated IG or if promyelocytes are not ed, a manual differential will be performed. Melisa Gran Abs 0.07 (H) 0.00 - 0.04 x10(3)/[facility] LABORATORY Specimen Anatomical Collection Method Collection Time Receive d Time (Source) Location / / Volume Laterality Blood specimen 08/10/2017 2:30 PM 018 2:48 (specimen) EST PM EST Resulting Agency Comment Spec In Lab Yonathan Smith MD HEMATOLOGY ORDERABLES Performing Organization Address City/State/ZIP Code Phon e Number [address] (ABNORMAL) Hemogram (08/10/2017 2:30 PM EST) Analysis Performed At Patho logist Time Signature WBC 11.3 (H) 4.0 - 9.5 [facility] x10(3)/[facility] LABORATORY RBC 3.13 (L) 4.58 - [facility] 5.54 [facility] x10(6)/[facility] LABORATORY Hemoglobin 8.9 (L) 13.7 - [facility] 16.5 gm/dL [facility] LABORATORY Hematocrit 28.4 (L) 40.5 - [facility] 48.5 % [facility] LABORATORY MCV 90.7 82.9 - [facility] 93.1 [facility] LABORATORY MCH 28.4 27.5 - [facility] 32.1 pg [facility] LABORATORY MCHC 31.3 (L) 32.0 - [facility] 35.7 gm/dL [facility] LABORATORY Platelets 213 145 - 357 [facility] x10(3)/[facility] LABORATORY RDWSD 53.7 (H) 36.0 - [facility] 45.0 [facility] LABORATORY RDWCV 16.4 (H) 11.4 - [facility] RYAN 13.8 % [facility] LABORATORY MPV 8.9 7.6 - 12.9 [facility] LABORATORY nRBC % Auto 0.0 % [facility] nRBC Abs Auto 0.000 0.000 - [facility] 0.000 [facility] x10(3)/[facility] LABORATORY Specimen Anatomical Collection Method Collection Time Receive d Time (Source) Location / / Volume Laterality Blood specimen 08/10/2017 2:30 PM 018 2:48 (specimen) EST PM EST Resulting Agency Comment Spec In Lab Yonathan Smith MD HEMATOLOGY ORDERABLES Performing Organization Address City/State/[place] [address] (ABNORMAL) POCT Glucose (08/10/2017 1:50 PM EST) athologist Signature POC Glucose 243 (H) 65 - 199 [facility] mg/dL [facility] LAB[facility]ORY Comment: [...] Address City/State/ZIP Code Phon e Number [address] POCT Glucose (08/10/2017 11:21 AM EST) athologist Signature POC Glucose 156 65 - 199 [facility]/dL [facility] LABORATORY [...] Address City/State/ZIP Code Phon e Number [address] (ABNORMAL) Differential, Automated (08/10/2017 10:28 AM EST) [facility] gist Method Time Signature Neutrophils % 85.3 % [facility] Neutr Abs (ANC) 9.43 (H) 1.70 - [facility] 6.10 [facility] x10(3)/[facility] L LABORATORY Lymphocytes % 5.5 % [facility] Lymphocytes Abs 0.6 (L) 0.9 - 3.2 [facility] x10(3)/[facility] LABORATORY Monocytes % 5.9 % [facility] Monocyte Abs 0.6 0.3 - 0.9 [facility] x10(3)/[facility] LABORATORY Eosinophils % 2.1 % [facility] Eosinophils Abs 0.2 0.0 - 0.4 [facility] x10(3)/[facility] LABORATORY Basophils % 0.4 % [facility] Basophils Abs 0.0 0.0 - 0.1 [facility] x10(3)/[facility] LABORATORY Immature Gran % 0.80 % [facility] Comment: Immature granulocytes(IG's)percentage an d absolute count will include metamyelocytes, myelocytes, and promyelo cytes. Blood smears from CBCs yielding IG's will be scanned manually for concor dance. If this scan disagrees with the automated IG or if promyelocytes are not ed, a manual differential will be performed. Melisa Gran Abs 0.09 (H) 0.00 - 0.04 x10(3)/[facility] LABORATORY Specimen Anatomical Collection Method Collection Time Receive d Time (Source) Location / / Volume Laterality Blood specimen 08/10/2017 10:28 8 (specimen) AM EST 10:35 AM EST Resulting Agency Comment Spec In Lab Yonathan Smith MD HEMATOLOGY ORDERABLES Performing Organization Address City/State/[place] [address] (ABNORMAL) Hemogram (08/10/2017 10:28 AM EST) Analysis Performed At Patho logist Time Signature WBC 11.0 (H) 4.0 - 9.5 [facility] x10(3)/[facility] LABORATORY RBC 3.02 (L) 4.58 - [facility] 5.54 [facility] x10(6)/[facility] LABORATORY Hemoglobin 8.8 (L) 13.7 - [facility] 16.5 gm/dL [facility] LABORATORY Hematocrit 28.1 (L) 40.5 - [facility] 48.5 % [facility] LABORATORY MCV 93.0 82.9 - [facility] 93.1 fL [facility] LABORATORY MCH 29.1 27.5 - [facility] 32.1 pg [facility] LAB[facility]ATORY MCHC 31.3 (L) 32.0 - [facility] 35.7 gm/dL [facility] LABORATORY Platelets 207 145 - 357 [facility] x10(3)/[facility] LABORATORY RDWSD 55.3 (H) 36.0 - [facility] 45.0 [facility] LABORATORY RDWCV 16.4 (H) 11.4 - [facility] 13.8 % [facility] LABORATORY MPV 9.0 7.6 - 12.9 [facility] LABORATORY nRBC % Auto 0.0 % [facility] nRBC Abs Auto 0.000 0.000 - [facility] 0.000 [facility] x10(3)/[facility] LABORATORY Specimen Anatomical Collection Method Collection Time Receive d Time (Source) Location / / Volume Laterality Blood specimen 08/10/2017 10:28 8 (specimen) AM EST 10:35 AM EST Resulting Agency Comment Spec In Lab Yonathan Smith MD HEMATOLOGY ORDERABLES Performing Organization Address City/State/[place] [address] VS Angiogram/intervention (vascular) (08/10/2017 [...] 2.5x80 5. Completion RLE angiogram 6. L [employer] WORK[employer] angiogram 7. 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 - L [employer] WORKER angriogram demonstrated: High fe moral bifurcation over the proximal half of the femoral head. L [employer] FA[employer]ORY WORKER access in the distal L EGG FACTORY WORKER. - Closure device: Mynx Technical Procedure: [...] for a 45cm 5F Destination. V18 and Panora a nd QuickCross catheters were used to [...] bifurcation. Access appeared in the distal R EGG FACTORY WORKER. Closure and sheath removal was performed [...] 2.5x80 5. Completion RLE angiogram 6. L EGG FA[employer]ORY WORKER angiogram 7. 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 - L [employer] WORKER angriogram demonstrated: High fe moral bifurcation over the proximal half of the femoral head. L [employer]GG FA[employer] WORKER access in the distal L EGG FACTORY WORKER. - Closure device: Mynx Technical Procedure: [...] for a 45cm 5F Destination. V18 and Panora a nd QuickCross catheters were used to [...] bifurcation. Access appeared in the distal R EGG FACTORY WORKER. Closure and sheath removal was performed [...] Differential, Automated (08/10/2017 5:50 AM EST) [facility] Method Time Signature Neutrophils % 80.1 % [facility]ORATORY Neutr Abs (ANC) 9.01 (H) 1.70 - [facility] 6.10 [facility] x10(3)/[facility] LABORATORY Lymphocytes % 8.8 % [facility] Lymphocytes Abs 1.0 0.9 - 3.2 [facility] x10(3)/[facility] LABORATORY Monocytes % 8.3 % [facility] Monocyte Abs 0.9 0.3 - 0.9 [facility] x10(3)/[facility] LABORATORY Eosinophils % 2.0 % [facility] Eosinophils Abs 0.2 0.0 - 0.4 [facility] x10(3)/[facility] LABORATORY Basophils % 0.4 % [facility] Basophils Abs 0.0 0.0 - 0.1 [facility] x10(3)/[facility] LABORATORY Immature Gran % 0.40 % [facility] Comment: Immature granulocytes(IG's)percentage an d absolute count will include metamyelocytes, myelocytes, and promyelo cytes. Blood smears from CBCs yielding IG's will be scanned manually for concor dance. If this scan disagrees with the automated IG or if promyelocytes are not ed, a manual differential will be performed. Melisa Gran Abs 0.05 (H) 0.00 - 0.04 x10(3)/[facility] LABORATORY Specimen Anatomical Collection Method Collection Time Receive d Time (Source) Location / / Volume Laterality Blood specimen 08/10/2017 5:50 AM 018 5:59 (specimen) EST AM EST Resulting Agency Comment Spec In Lab Yonathan Smith MD HEMATOLOGY ORDERABLES Performing Organization Address City/State/[place] [address] (ABNORMAL) Hemogram (08/10/2017 5:50 AM EST) Analysis Performed At Patho logist Time Signature WBC 11.3 (H) 4.0 - 9.5 [facility] x10(3)/[facility] LABORATORY RBC 3.15 (L) 4.58 - [facility] 5.54 [facility] x10(6)/[facility] LABORATORY Hemoglobin 8.9 (L) 13.7 - [facility] 16.5 gm/dL [facility] LABORATORY Hematocrit 29.0 (L) 40.5 - [facility] 48.5 % [facility] LABORATORY MCV 92.1 82.9 - [facility] 93.1 [facility] LABORATORY MCH 28.3 27.5 - [facility] RYAN 32.1 pg [facility] LABORATORY MCHC 30.7 (L) 32.0 - [facility] 35.7 gm/dL [facility] LABORATORY Platelets 231 145 - 357 [facility] x10(3)/[facility] LABORATORY RDWSD 53.9 (H) 36.0 - [facility] RYAN 45.0 [facility] LABORATORY RDWCV 16.2 (H) 11.4 - [facility] RYAN 13.8 % [facility] LABORATORY MPV 8.7 7.6 - 12.9 [facility] LABORATORY nRBC % Auto 0.0 % [facility] nRBC Abs Auto 0.000 0.000 - [place] 0.000 [facility] x10(3)/[facility] LABORATORY Specimen Anatomical Collection Method Collection Time Receive d Time (Source) Location / / Volume Laterality Blood specimen 08/10/2017 5:50 AM 018 5:59 (specimen) EST AM EST Resulting Agency Comment Spec In Lab Yonathan Smith MD HEMATOLOGY ORDERABLES Performing Organization Address City/State/[place] [address] (ABNORMAL) Basic Metabolic Panel (non-fasting) (08/10/2017 5:50 AM EST) P athologist Signature Glucose Lvl 135 65 - 199 [facility] mg/dL [facility] LABORATORY [...] estions. Chloride 104 98 - 107 mmol/L [facility]OR[facility]ORY CO2 27 22 - 31 mmol/L [facility] Anion Gap 13 5 - 15 mmol/L [facility] LABORATORY Calcium 8.1 (L) 8.5 - 10.5 mg/dL [facility] LABORATORY Estimated GFR >60 >=60 [facility] LABORATORY Comment: The reported eGFR should be multiplied b y 1.2 for patients. The MDRD is not an appropriate measure o f renal function for patients with body mass extremes or in patients with acute kidney failure. http://[employer]/DHnkdep http://[employer]/DHMCnkf Specimen Anatomical Collection Method Collection Time Receive d Time (Source) Location / / Volume Laterality Blood specimen 08/10/2017 5:50 AM 018 5:59 (specimen) EST AM EST Resulting Agency Comment Spec In Lab Yonathan Smith MD CHEMISTRY ORDERABLES Performing Organization Address City/State/[place] [address] (ABNORMAL) Prothrombin Time (08/10/2017 5:50 AM EST) athologist Signature PT 16.8 (H) 11.8 - 14.0 [facility] LABORATORY INR 1.4 (H) 0.9 - 1.1 [facility]ORATORY Comment: An INR <2.0 [...] Organization Address City/[facility]/[place] [address] (ABNORMAL) POCT Glucose (08/10/2017 4:01 AM EST) athologist Signature POC Glucose 206 (H) 65 - 199 [facility] mg/dL [facility] LABOR[facility]ORY Comment: [...] Organization Address City/State/[place] [address] POCT Glucose (08/10/2017 2:01 AM EST) athologist Signature POC Glucose 188 65 - 199 [facility] RYAN mg/dL [facility] LABORATORY Comment: [...] Organization Address City/State/[place] [address] (ABNORMAL) POCT Glucose (08/09/2017 11:42 PM EST) P athologist Signature POC Glucose 283 (H) 65 - 199 [facility]dL [facility] Comment: [...] Organization Address City/[facility]/[place] [address] POCT Glucose (08/09/2017 8:55 PM EST) P athologist Signature POC Glucose 182 65 - 199 [facility] mg/dL [facility] Comment: [...] Organization Address City/State/[place] [address] (ABNORMAL) APTT (08/09/2017 6:42 PM EST) P athologist Signature PTT 90 (H) 25 - 35 sec [facility] Comment: The recommended therapeutic range for fu ll dose, unfractionated heparin at [facility] is 80 ? 114 seconds. The use [...] Organization Address City/[facility]/ZIP Code Phon e Number [address] POCT Glucose (08/09/2017 4:41 PM EST) athologist Signature POC Glucose 195 65 - 199 [facility] [...] Organization Address City/[facility]/ZIP Code Phon e Number [address] POCT Glucose (08/09/2017 12:29 PM EST) athologist Signature POC Glucose 140 65 - 199 [facility]dL [facility] [...] Organization Address City/[facility]/ZIP [facility] Phon e Number [address] POCT Glucose (08/09/2017 9:59 AM EST) athologist Signature POC Glucose 135 65 - 199 [facility] mg/dL [facility] [...] Organization Address City/[facility]/[place] [address] Specimen to Pathology (08/09/2017 8:41 AM EST) Specimen Anatomical Collection Method Collection Time Receive d Time (Source) Location / / Volume Laterality AP Specimen 08/09/2017 8:41 AM 8 8:41 EST AM EST Narrative [facility] - 08/09/2017 8:41 AM EST Specimen requisition ordered. ??Separate Pathology report to follow Yonathan Smith MD PATHOLOGY/CYTOLOGY ORDERABLE S Performing Organization Address City/[facility]/[place] [address] Surgical Pathology Report (08/09/2017 8:40 AM EST) Component Value Ref Test Analysis Performed At [facility] gist Range Method Time Signature Surgical [id number] ? Location: [facility]; [facility]; A [facility] Report The signing pathologist has (i) examined the relevant preparation(s) for the [facility] specimen(s) and (ii) rendered or confirmed the diagnosis(es) . HOSPITAL LABORATORY . 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 ?Viable proximal resection margins. Electronically signed by: ??Manjit STRANGE, Henrique Flower Verified: ??08/13/2017 ?Pathologist Performed at: ??-[facility] Dept. of Pathology, [place], [place] CLINICAL INFORMATION Specimen Submitted: A - [...] Organization Address City/State/[place] [address] Anaerobic Culture (08/09/2017 8:30 AM EST) [facility] gist Method Time Signature Anaerobic No anaerobic [facility] Culture organisms [facility] LABORATORY Specimen Anatomical Collection Method [...] Organization Address City/State/[place] [address] (ABNORMAL) Abscess/Wound Aspirate Culture (08/09/2017 8:30 AM EST) Patholo gist Method Time Signature Abscess/Wound Moderate mixed [facility] Aspirate bacterial [place] Culture morphotypes [facility] normal LABORATORY cutaneous leroy (A) Gram Stain Rare White Blood Cells [place] Few Gram Positive Cocci in pairs [place] () [facility] Organism Gram Positive [place] Cocci in pairs [place] () [facility] Specimen Anatomical [...] Organization Address City/[facility]/[place] [address] POCT Glucose (08/09/2017 4:28 AM EST) P athologist Signature POC Glucose 128 65 - 199 [facility] mg/dL [facility] [...] Address City/State/ZIP Code Phon e Number [address] ABORH Recheck Status (08/09/2017 1:10 AM EST) Patholo gist Method Time Signature ABORH Type Completed [facility] LABORATORY Specimen Anatomical Collection Method Collection Time Receive d Time (Source) Location / / Volume Laterality Blood specimen 08/09/2017 1:10 AM 018 1:35 (specimen) EST AM EST Resulting Agency Comment Spec In Lab Yonathan Smith MD BLOOD BANK ORDERABLES Performing Organization Address City/[facility]/[place] [address] Antibody screen (08/09/2017 1:10 AM EST) Patholo gist Method Time Signature Ab Screen Negative [facility] LABORATORY Expires at 08/12/2017 BAR[place]A ZHAORYAN [id number] on: [facility] Specimen Anatomical Collection Method Collection Time Receive d Time (Source) Location / / Volume Laterality Blood specimen 08/09/2017 1:10 AM 018 1:35 (specimen) EST AM EST Resulting Agency Comment Spec In Lab Yonathan Smith MD BLOOD BANK ORDERABLES Performing Organization Address City/[facility]/[place] [address] ABO/Rh Typing (08/09/2017 1:10 AM EST) P athologist Signature ABORh Type O Pos [facility] Specimen Anatomical Collection Method Collection Time Receive d Time (Source) Location / / Volume Laterality Blood specimen 08/09/2017 1:10 AM 018 1:35 (specimen) EST AM EST Resulting Agency Comment Spec In Lab Yonathan Smith MD BLOOD BANK ORDERABLES Performing Organization Address City/[facility]/[place] [address] (ABNORMAL) APTT (08/09/2017 1:10 AM EST) P athologist Signature PTT 86 (H) 25 - 35 sec [facility] Comment: The recommended therapeutic range for fu ll dose, unfractionated heparin at [facility] is 80 ? 114 seconds. The use [...] Organization Address City/State/[place] [address] (ABNORMAL) Differential, Automated (08/09/2017 1:10 AM EST) [facility] Method Time Signature Neutrophils % 76.2 % [facility] Neutr Abs (ANC) 8.59 (H) 1.70 - [facility] 6.10 [facility] x10(3)/[facility] LABORATORY Lymphocytes % 11.0 % [facility] Lymphocytes Abs 1.2 0.9 - 3.2 [facility] x10(3)/[facility] LABORATORY Monocytes % 8.4 % [facility] Monocyte Abs 1.0 (H) 0.3 - 0.9 [facility] x10(3)/[facility] LABORATORY Eosinophils % 3.5 % [facility] Eosinophils Abs 0.4 0.0 - 0.4 [facility] x10(3)/[facility] LABORATORY Basophils % 0.5 % [facility] Basophils Abs 0.1 0.0 - 0.1 [facility] x10(3)/[facility] LABORATORY Immature Gran % 0.40 % [facility] Comment: Immature granulocytes(IG's)percentage an d absolute count will include metamyelocytes, myelocytes, and promyelo cytes. Blood smears from CBCs yielding IG's will be scanned manually for concor dance. If this scan disagrees with the automated IG or if promyelocytes are not ed, a manual differential will be performed. Melisa Gran Abs 0.05 (H) 0.00 - 0.04 x10(3)/[facility] LABORATORY Specimen Anatomical Collection Method Collection Time Receive d Time (Source) Location / / Volume Laterality Blood specimen 08/09/2017 1:10 AM 018 1:19 (specimen) EST AM EST Resulting Agency Comment Spec In Lab Yonathan Smith MD HEMATOLOGY ORDERABLES Performing Organization Address City/State/[place] [address] (ABNORMAL) Hemogram (08/09/2017 1:10 AM EST) Analysis Performed At Patho logist Time Signature WBC 11.3 (H) 4.0 - 9.5 [facility] x[facility](3[facility] LABORATORY RBC 3.47 (L) 4.58 - [place] RYAN 5.54 [facility] x10(6)/[facility] LABORATORY Hemoglobin 10.0 (L) 13.7 - [facility] 16.5 gm/dL [facility] Hematocrit 31.9 (L) 40.5 - [facility] 48.5 % [facility] MCV 91.9 82.9 - [facility] 93.1 [facility] LABORATORY MCH 28.8 27.5 - [facility] 32.1 pg [facility] MCHC 31.3 (L) 32.0 - [facility] 35.7 gm/dL [facility] Platelets 234 145 - 357 [facility] x10(3)/[facility] LABORATORY RDWSD 54.0 (H) 36.0 - [facility] 45.0 [facility] LABORATORY RDWCV 16.2 (H) 11.4 - [facility] 13.8 % [facility] LABORATORY MPV 8.7 7.6 - 12.9 [facility] LABORATORY nRBC % Auto 0.0 % [facility] nRBC Abs Auto 0.000 0.000 - [facility] 0.000 [facility] x10(3)/[facility] LABORATORY Specimen Anatomical Collection Method Collection Time Receive d Time (Source) Location / / Volume Laterality Blood specimen 08/09/2017 1:10 AM 018 1:19 (specimen) EST AM EST Resulting Agency Comment Spec In Lab Yonathan Smiht MD HEMATOLOGY ORDERABLES Performing Organization Address City/State/[place] [address] (ABNORMAL) Prothrombin Time (08/09/2017 1:10 AM EST) P athologist Signature PT 16.0 (H) 11.8 - 14.0 [facility] LABORATORY INR 1.3 (H) 0.9 - 1.1 [facility] Comment: An INR <2.0 [...] Organization Address City/State/[place] [address] (ABNORMAL) Basic Metabolic Panel (non-fasting) (08/09/2017 1:10 AM EST) athologist Signature Glucose Lvl 108 65 - 199 [facility] mg/dL [facility] LABORATORY [...] Chloride 96 (L) 98 - 107 mmol/L [facility] CO2 29 22 - 31 mmol/L [facility] [...] or in patients with acute kidney failure. [email or web address] [email or web address] Specimen Anatomical Collection Method Collection Time Receive d Time (Source) Location / / Volume Laterality Blood specimen 08/09/2017 1:10 AM 018 1:19 (specimen) EST AM EST Resulting Agency Comment Spec In Lab Yonathan Smith MD CHEMISTRY ORDERABLES Performing Organization Address City/[facility]/ZIP [facility] Phon e Number [address] POCT Glucose (08/09/2017 12:05 AM EST) P athologist Signature POC Glucose 128 65 - 199 [facility] mg/dL [facility] LABORATORY [...] Organization Address City/[facility]/[place] [address] (ABNORMAL) POCT Glucose (08/08/2017 7:36 PM EST) P athologist Signature POC Glucose 215 (H) 65 - 199 [facility] mg/dL [facility] Comment: [...] Organization Address City/State/[place] [address] (ABNORMAL) POCT Glucose (08/08/2017 6:23 PM EST) athologist Signature POC Glucose 216 (H) 65 - 199 [facility] mg/dL [facility] LABORATORY [...] Organization Address City/[facility]/[place] [address] (ABNORMAL) APTT (08/08/2017 6:00 PM EST) athologist Signature PTT 97 (H) 25 - 35 sec [facility] Comment: The recommended therapeutic range for fu ll dose, unfractionated heparin at [facility] is 80 ? 114 seconds. The use [...] Organization Address City/State/[place] [address] POCT Glucose (08/08/2017 4:42 PM EST) athologist Signature POC Glucose 78 65 - 199 [facility] mg/dL [facility] Comment: [...] Organization Address City/State/[place] [address] (ABNORMAL) POCT Glucose (08/08/2017 4:01 PM EST) P athologist Signature POC Glucose 58 (L) 65 - 199 [facility] mg/dL [facility] Comment: [...] Organization Address City/[facility]/[place] [address] POCT Glucose (08/08/2017 11:51 AM EST) athologist Signature POC Glucose 90 65 - 199 [facility] mg/dL [facility] Comment: [...] Organization Address City/[facility]/[place] [address] (ABNORMAL) APTT (08/08/2017 10:27 AM EST) P athologist Signature PTT 64 (H) 25 - 35 sec [facility] Comment: The recommended therapeutic range for fu ll dose, unfractionated heparin at [facility] is 80 ? 114 seconds. The use [...] Organization Address City/[facility]/[place] [address] POCT Glucose (08/08/2017 8:02 AM EST) athologist Signature POC Glucose 178 65 - 199 [facility] mg/dL [facility] Comment: [...] Organization Address City/[facility] [place] [address] (ABNORMAL) APTT (08/08/2017 4:51 AM EST) athologist Signature PTT >160 25 - 35 [facility] (Critical) sec [facility] Comment: Called by: HOWARD, Read back by: Melba Jaramillo, Date/Time:08/08/17 05:43. The recommended therapeutic range for fu ll dose, unfractionated heparin at [facility] is 80 ? 114 seconds. The use [...] Organization Address City/[facility]/ZIP [facility] [place] [address] (ABNORMAL) Differential, Automated (08/08/2017 4:51 AM EST) Patholo gist Method Time Signature Neutrophils % 77.9 % [facility] Neutr Abs (ANC) 8.17 (H) 1.70 - [facility] 6.10 [facility] x10(3)/[facility] LABORATORY Lymphocytes % 10.3 % [facility] Lymphocytes Abs 1.1 0.9 - 3.2 [facility] x10(3)/[facility] LABORATORY Monocytes % 7.0 % [facility] Monocyte Abs 0.7 0.3 - 0.9 [facility] x10(3)/[facility] LABORATORY Eosinophils % 3.6 % [facility] Eosinophils Abs 0.4 0.0 - 0.4 [facility] x10(3)/[facility] LABORATORY Basophils % 0.5 % [facility] Basophils Abs 0.0 0.0 - 0.1 [facility] x10(3)/[facility] LABORATORY Immature Gran % 0.70 % [facility] Comment: Immature granulocytes(IG's)percentage an d absolute count will include metamyelocytes, myelocytes, and promyelo cytes. Blood smears from CBCs yielding IG's will be scanned manually for concor dance. If this scan disagrees with the automated IG or if promyelocytes are not ed, a manual differential will be performed. Melisa Gran Abs 0.07 (H) 0.00 - 0.04 x10(3)/[facility] LABORATORY Specimen Anatomical Collection Method Collection Time Receive d Time (Source) Location / / Volume Laterality Blood specimen 08/08/2017 4:51 AM 018 5:14 (specimen) EST AM EST Resulting Agency Comment Spec In Lab Yonathan Smith MD HEMATOLOGY ORDERABLES Performing Organization Address City/State/[place] [address] (ABNORMAL) Hemogram (08/08/2017 4:51 AM EST) Analysis Performed At Patho logist Time Signature WBC 10.5 (H) 4.0 - 9.5 [facility] x10(3)/[facility] LABORATORY RBC 3.27 (L) 4.58 - [facility] RYAN 5.54 [facility] x10(6)/[facility] LABORATORY Hemoglobin 9.3 (L) 13.7 - [facility] 16.5 gm/dL [facility] Hematocrit 30.3 (L) 40.5 - [facility] 48.5 % [facility] MCV 92.7 82.9 - [facility] 93.1 [facility] LABORATORY MCH 28.4 27.5 - [facility] 32.1 pg [facility] MCHC 30.7 (L) 32.0 - [facility] 35.7 gm/dL [facility] Platelets 252 145 - 357 [facility] x10(3)/[facility] LABORATORY RDWSD 54.6 (H) 36.0 - [facility] 45.0 [facility] LABORATORY RDWCV 16.2 (H) 11.4 - [facility] 13.8 % [facility] LABORATORY MPV 9.1 7.6 - 12.9 [facility] LABORATORY nRBC % Auto 0.0 % [facility] nRBC Abs Auto 0.000 0.000 - [facility] 0.000 [facility] x10(3)/[facility] LABORATORY Specimen Anatomical Collection Method Collection Time Receive d Time (Source) Location / / Volume Laterality Blood specimen 08/08/2017 4:51 AM 018 5:14 (specimen) EST AM EST Resulting Agency Comment Spec In Lab Yonathan Smith MD HEMATOLOGY ORDERABLES Performing Organization Address City/State/[place] [address] (ABNORMAL) Prothrombin Time (08/08/2017 4:51 AM EST) P athologist Signature PT 18.1 (H) 11.8 - 14.0 [facility] LABORATORY INR 1.5 (H) 0.9 - 1.1 [facility] Comment: An INR <2.0 [...] Organization Address City/State/[place] [address] (ABNORMAL) Basic Metabolic Panel (non-fasting) (08/08/2017 4:51 AM EST) P athologist Signature Glucose Lvl 229 (H) 65 - 199 [facility] mg/dL [facility] LABORATORY [...] Chloride 94 (L) 98 - 107 mmol/L [facility] CO2 25 22 - 31 mmol/L [facility] Anion Gap 17 (H) [...] or in patients with acute kidney failure. [email or web address] [email or web address] Specimen Anatomical Collection Method Collection Time Receive d Time (Source) Location / / Volume Laterality Blood specimen 08/08/2017 4:51 AM 018 5:14 (specimen) EST AM EST Resulting Agency Comment Spec In Lab Yonathan Smith MD CHEMISTRY ORDERABLES Performing Organization Address City/State/ZIP Code Phon e Number [address] POCT Glucose (08/08/2017 4:20 AM EST) athologist Signature POC Glucose 193 65 - 199 [facility] mg/dL [facility] LABORATORY [...] Organization Address City/[facility]/ZIP Code Phon e Number [address] POCT Glucose (08/07/2017 11:11 PM EST) athologist Signature POC Glucose 124 65 - 199 [facility] mg/dL [facility] Comment: [...] Organization Address City/[facility]/ZIP Code Phon e Number [address] (ABNORMAL) APTT (08/07/2017 10:18 PM EST) P athologist Signature PTT 114 (H) 25 - 35 sec [facility] Comment: The recommended therapeutic range for fu ll dose, unfractionated heparin at [facility] is 80 ? 114 seconds. The use [...] Organization Address City/[facility] Phon e Number [address] POCT Glucose (08/07/2017 8:10 PM EST) athologist Signature POC Glucose 140 65 - 199 [facility] mg/dL [facility] LABORATORY [...] Organization Address City/[facility]/ZIP Code Phon e Number [address] POCT Glucose (08/07/2017 5:27 PM EST) athologist Signature POC Glucose 187 65 - 199 [facility] mg/dL [facility] Comment: [...] Organization Address City/[facility]/ZIP Code Phon e Number [address] POCT Glucose (08/07/2017 3:29 PM EST) athologist Signature POC Glucose 86 65 - 199 [facility] mg/dL [facility] LABORATORY [...] Organization Address City/[facility]/[place] [address] (ABNORMAL) APTT (08/07/2017 2:50 PM EST) athologist Signature PTT 60 (H) 25 - 35 sec [facility] Comment: The recommended therapeutic range for fu ll dose, unfractionated heparin at [facility] is 80 ? 114 seconds. The use [...] Organization Address City/[facility]/[place] [address] (ABNORMAL) POCT Glucose (08/07/2017 2:23 PM EST) athologist Signature POC Glucose 55 (L) 65 - 199 [facility] mg/dL [facility] Comment: [...] Organization Address City/State/[place] [address] [facility] [address] POCT Glucose (08/07/2017 12:08 PM EST) P athologist Signature POC Glucose 77 65 - 199 [facility] mg/dL [facility] LABORATORY [...] Address City/State/ZIP Code Phon e Number [address] (ABNORMAL) Differential, Automated (08/07/2017 7:30 AM EST) Patholo gist Method Time Signature Neutrophils % 73.8 % [facility] Neutr Abs (ANC) 7.17 (H) 1.70 - [facility] 6.10 [facility] x10(3)/[facility] LABORATORY Lymphocytes % 12.2 % [facility] Lymphocytes Abs 1.2 0.9 - 3.2 [facility] x10(3)/[facility] LABORATORY Monocytes % 9.0 % [facility] Monocyte Abs 0.9 0.3 - 0.9 [facility] x10(3)/[facility] LABORATORY Eosinophils % 3.9 % [facility] Eosinophils Abs 0.4 0.0 - 0.4 [facility] x10(3)/[facility] LABORATORY Basophils % 0.6 % [facility] Basophils Abs 0.1 0.0 - 0.1 [facility] x10(3)/[facility] LABORATORY Immature Gran % 0.50 % [facility] Comment: Immature granulocytes(IG's)percentage an d absolute count will include metamyelocytes, myelocytes, and promyelo cytes. Blood smears from CBCs yielding IG's will be scanned manually for concor dance. If this scan disagrees with the automated IG or if promyelocytes are not ed, a manual differential will be performed. Melisa Gran Abs 0.05 (H) 0.00 - 0.04 x10(3)/[facility] LABORATORY Specimen Anatomical Collection Method Collection Time Receive d Time (Source) Location / / Volume Laterality Blood specimen 08/07/2017 7:30 AM 018 7:45 (specimen) EST AM EST Resulting Agency Comment Spec In Lab Yonathan Smith MD HEMATOLOGY ORDERABLES Performing Organization Address City/State/[place] [address] (ABNORMAL) Hemogram (08/07/2017 7:30 AM EST) Analysis Performed At Patho logist Time Signature WBC 9.7 (H) 4.0 - 9.5 [facility] x10(3)/[facility] LABORATORY RBC 3.54 (L) 4.58 - [facility] 5.54 [facility] x10(6)/[facility] LABORATORY Hemoglobin 9.9 (L) 13.7 - [facility] 16.5 gm/dL [facility]ATORY Hematocrit 32.3 (L) 40.5 - [facility] 48.5 % [facility] LABORATORY MCV 91.2 82.9 - [facility] 93.1 [facility] LABORATORY MCH 28.0 27.5 - [facility] 32.1 pg [facility] LABORATORY MCHC 30.7 (L) 32.0 - [facility] 35.7 gm/dL [facility] LABORATORY Platelets 312 145 - 357 [facility] x10(3)/[facility] LABORATORY RDWSD 53.2 (H) 36.0 - [facility] RYAN 45.0 [facility] LABORATORY RDWCV 16.0 (H) 11.4 - [facility]AN 13.8 % [facility] LABORATORY MPV 8.9 7.6 - 12.9 [facility] LABORATORY nRBC % Auto 0.0 % [facility] nRBC Abs Auto 0.000 0.000 - [facility] 0.000 [facility] x10(3)/[facility] LABORATORY Specimen Anatomical Collection Method Collection Time Receive d Time (Source) Location / / Volume Laterality Blood specimen 08/07/2017 7:30 AM 018 7:45 (specimen) EST AM EST Resulting Agency Comment Spec In Lab Yonathan Smith MD HEMATOLOGY ORDERABLES Performing Organization Address City/State/[place] [address] (ABNORMAL) Basic Metabolic Panel (non-fasting) (08/07/2017 7:30 AM EST) athologist Signature Glucose Lvl 80 65 - 199 [facility] mg/dL [facility] LABORATORY [...] estions. Chloride 99 98 - 107 mmol/L [facility] CO2 29 22 - 31 mmol/L [facility] Anion Gap 12 5 [...] or in patients with acute kidney failure. http://[employer].Twist/DHnkdep http://[employer]/DHMCnkf Specimen Anatomical Collection Method Collection Time Receive d Time (Source) Location / / Volume Laterality Blood specimen 08/07/2017 7:30 AM 018 7:45 (specimen) EST AM EST Resulting Agency Comment Spec In Lab Yonathan Smith MD CHEMISTRY ORDERABLES Performing Organization Address City/[facility]/ZIP Code Phon e Number [address] POCT Glucose (08/07/2017 7:27 AM EST) athologist Signature POC Glucose 81 65 - 199 [facility] mg/dL [facility] LABORATORY [...] Performing Organization Address [facility] Phon e Number [address] APTT (08/07/2017 7:04 AM EST) athologist Signature PTT 34 25 - 35 sec [facility] Comment: The recommended therapeutic range for fu ll dose, unfractionated heparin at [facility] is 80 ? 114 seconds. The use [...] Organization Address City/[facility]/ZIP [facility] Phon e Number [address] (ABNORMAL) Prothrombin Time (08/07/2017 7:04 AM EST) athologist Signature PT 17.3 (H) 11.8 - 14.0 [facility] LABORATORY INR 1.4 (H) 0.9 - 1.1 [facility] Comment: An INR <2.0 [...] Address City/State/ZIP Code Phon e Number [address] POCT Glucose (08/07/2017 4:03 AM EST) athologist Signature POC Glucose 93 65 - 199 [facility] mg/dL [facility] LABORATORY [...] Address City/State/ZIP Code Phon e Number [address] POCT Glucose (08/07/2017 12:04 AM EST) athologist Signature POC Glucose 107 65 - 199 [facility] mg/dL [facility] Comment: [...] Organization Address City/State/[place] [address] POCT Glucose (08/06/2017 7:56 PM EST) P athologist Signature POC Glucose 178 65 - 199 [facility] mg/dL [facility] Comment: [...] Organization Address City/State/[place] [address] TcPO2 (08/06/2017 2:32 PM EST) Component Value Ref Test Analysis Performed At Patholo gist Range Method Time Signature VB Text Department: Vascular Surgery Lab VASCUBASE Report Patient: [id number] (GREGORY HOANG) CPT: [id number] ICD10: I99.8 Referring Physician: YONATHAN SMITH ?? [...] VAMSI) 0900 (Patch Removed - Provider: Dory Truong, [...] Chiquis Mcgrath RN)2010 (Given - Provider: Henrique Marks, VAMSI) 08 (Given - Provider: Chiquis Mcgrath, VAMSI)2024 (Given - Provider: Mira Truong, RN) 0800 (Given - Provider: Dory Truong, VAMSI) 400 mg, Oral, 2 TIMES DAILY, First dose on Wed08/06/17 at 2100, Until Discontinued melatonin tablet 6 mg 2012 (Given - Provider: Henrique vargas RN) 2024 (Given - Provider: Mira Truong, RN) 6 mg, Oral, NIGHTLY, First dose on Wed at 2100, Until Discontinued, Routine meTOPROLOL tartrate [...] RN) 1400 (Dose confirmed - Provider: Chiquis Mcgrath, VAMSI ) Oral, EVERY 24 HOURS, First dose [...]
Routine documented in this encounter Care Teams Outsole Cementer Relationship Specialty Start Date End Date Lovely Vicente MD PCP - General 04/16/[address] [place] [address] documented as of this encounter
--- OUTSIDE RECORDS SUMMARY | 2022-02-25 08:14 | XMS_ITS | Encounter Summary ---
:1945 [place] [address] Care Team Providers Name Role Phone Lovely Vicente MD Primary Care Provider Encounter Details Date Type Department Care Team Description 08/09/2017 Clinical Support Same Day at [facility] Canceled (D-SCHED ERROR [facility] / CORRECT ION ) [place] [address] Social History Tobacco Use Types Packs/Day [...] MD [facility] ER CARDIOLOGY [place], [place] [address] (Wo rk) 06/10/2022 Office Visit Dermatology Laura Scherer MD [facility] DR TE[address] GR-DERMAT OLOGY [place], [place] [address] (Wo rk) documented as of this encounter Procedures Procedure Name Priority Date/Time Associated Diagnosis Comme nts ELECTRICIANS TOP HELPER 08/09/2017 12:00 AM Resul ts for this SCAN EST procedure are i n the results section. documented in this encounter Results SCAN DOC: ELECTRICIANS TOP HELPER (08/09/2017 12:00 AM EST) Narrative 08/09/2017 12:00 AM EST This result has an attachment that is no t available. Ordered by an unspecified provider. Scanning Provider MEDIA MGR SCAN EXT ORDR/RSLT documented in this encounter Visit Diagnoses Not on filedocumented in this encounter Care Teams Wedding Planner Relationship Specialty Start Date End Date Lovely Vicente MD PCP - General 04/16/[address] [place] [address] documented as of this encounter
--- OUTSIDE RECORDS SUMMARY | 2022-02-25 08:15 | XMS_ITS | Encounter Summary ---
:1945 Author Organization [facility] Address [facility] [place] [address] Care Team Providers Name Role Phone Lovely Vicente MD Primary Care Provider Reason for Visit Auth/Cert Specialty Diagnoses / Procedures Referred By Contact Refer red To Contact Diagnoses Critical lower limb ischemia CELLULITIS RT FOOT Procedures EMERGENCY Referral ID Status Reason Start Date Expiration Date Visits Requ ested Visits Authorized [id number] 1 1 Encounter Details Date Type Department Care Team Description 08/04/2017 Laboratory Lab 3L [place] Cardiomyopathy, unspecified type; Appointment [facility] Systolic congestive heart failure, unspecified congestive heart failure chronicity; Hospital Coronary artery rupture; [facility] Ischemic cardiomyopathy; Drive Atherosclerosis of rosebud co ronary artery, angina presence unspecified, unspecified whether rosebud or transplanted heart; [place], [place] Essential hyper tension, malignant; [id number] 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 PROTHROMBIN TIME Routine 08/04/2017 12:55 Coronary artery Resu lts for this PM EST rupture procedure are in Ischemic the results cardiomyopathy section. Atherosclerosis of rosebud coronary artery, angina presence unspecified, unspecified whether rosebud or transplanted heart URIC ACID Routine 08/04/2017 [...] with the results diabetic section. 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 documented in this encounter Results Uric acid (08/04/2017 12:55 PM EST) P athologist Signature Uric Acid 7.1 3.5 - 8.5 [facility] mg/dL [facility] Specimen Anatomical Collection Method Collection Time Receive d Time (Source) Location / / Volume Laterality Blood specimen 08/04/2017 12:55 8 1:01 (specimen) PM EST PM EST Resulting Agency Comment Spec In Lab Lovely Vicente MD CHEMISTRY ORDERABLES Performing Organization Address City/State/ZIP [place] [address] (ABNORMAL) Hemogram (08/04/2017 12:55 PM EST) Analysis Performed At Patho logist Time Signature WBC 15.8 (H) 4.0 - 9.5 [facility] x10(3)/[facility] LABORATORY RBC 3.48 (L) 4.58 - [facility] 5.54 [facility] x10(6)/[facility] LABORATORY Hemoglobin 9.9 (L) 13.7 - [facility] 16.5 gm/dL [facility] Hematocrit 31.4 (L) 40.5 - [facility] 48.5 % [facility] MCV 90.2 82.9 - [facility] 93.1 [facility] LABORATORY MCH 28.4 27.5 - [facility] 32.1 pg [facility] MCHC 31.5 (L) 32.0 - [facility] 35.7 gm/dL [facility] Platelets 310 145 - 357 [facility] x10(3)/[facility] LABORATORY RDWSD 51.8 (H) 36.0 - [facility] 45.0 [facility] LABORATORY RDWCV 15.8 (H) 11.4 - [facility] 13.8 % [facility] MPV 8.9 7.6 - 12.9 [facility] LABORATORY nRBC % Auto 0.0 % [facility] LABORATORY nRBC Abs Auto 0.000 0.000 - [facility] 0.000 [facility] x10(3)/[facility] LABORATORY Specimen Anatomical Collection Method Collection Time Receive d Time (Source) Location / / Volume Laterality Blood specimen 08/04/2017 12:55 8 1:01 (specimen) PM EST PM EST Resulting Agency Comment Spec In Lab Lovely Vicente MD HEMATOLOGY ORDERABLES Performing Organization Address City/State/ZIP [place] [address] (ABNORMAL) Comprehensive metabolic panel (non-fasting) (08/04/2017 12:55 PM EST) P athologist Signature Glucose Lvl 208 (H) 65 - 199 [facility] mg/dL [facility] Comment: Diabetes: >=200 mg/dL plus symp toms BUN 32 (H) 10 - 20 mg/dL [facility] Creatinine 1.58 (H) 0.80 - 1.50 mg/dL [facility] LABOR[facility]ORY Sodium 136 135 - [...] Chloride 97 (L) 98 - 107 mmol/L [facility] CO2 25 22 - 31 mmol/L [facility] Anion Gap 14 5 - 15 mmol/L [facility] Calcium 8.6 8.5 - 10.5 mg/dL [facility] Total Protein 6.9 6.1 - 8.0 gm/dL [facility] Albumin 3.4 3.2 - 5.2 gm/dL [facility] AST 20 0 - 39 unit/L [facility] ALT 21 0 - 55 unit/L [facility] Alk Phos 93 40 - 120 unit/L [facility] Total Bilirubin 0.4 0.2 - 1.3 mg/dL [facility] Estimated GFR 43 (L) >=60 [facility] Comment: The reported eGFR should be multiplied b y 1.2 for patients. The MDRD is not an appropriate measure o f renal function for patients with body mass extremes or in patients with acute kidney failure. http://[employer]/DHnkdep http://[employer]/DHMCnkf Specimen Anatomical Collection Method Collection Time Receive d Time (Source) Location / / Volume Laterality Blood specimen 08/04/2017 12:55 8 1:01 (specimen) PM EST PM EST Resulting Agency Comment Spec In Lab Lovely Vicente MD CHEMISTRY ORDERABLES Performing Organization Address City/State/ZIP [place] [address] (ABNORMAL) Hemoglobin A1c (08/04/2017 12:55 PM EST) Analysis Performed At [facility] Time Signature Hemoglobin A1C 6.2 (H) [...] Mellitus, Diabetes Care 2013; 36: Suppl. 1, T77-71 Est Avg Gluc See note mg/dL [facility] [...] into estimated average glucose values. ??Diabetes Care 2008:31(8):4252-7598. Specimen Anatomical Collection Method Collection Time Receive d Time (Source) Location / / Volume Laterality Blood specimen 08/04/2017 12:55 8 1:01 (specimen) PM EST PM EST Resulting Agency Comment Spec In Lab Lovely Vicente MD CHEMISTRY ORDERABLES Performing Organization Address City/[facility]/ZIP [place] [address] (ABNORMAL) Prothrombin Time (08/04/2017 12:55 PM EST) P athologist Signature PT 35.4 (H) 11.8 - 14.0 [facility] LABORATORY INR 3.5 (H) 0.9 - 1.1 [facility] [...] Vicente MD HEMATOLOGY ORDERABLES Performing Organization Address City/[facility]/ZIP [place] [address] (ABNORMAL) pro-Brain Natriuretic Peptide (08/04/2017 12:55 PM EST) P athologist Signature ProBNP 3,133 (H) <=125 [facility] pg/mL [facility] Specimen Anatomical Collection Method Collection Time Receive d Time (Source) Location / / Volume Laterality Blood specimen 08/04/2017 12:55 8 1:01 (specimen) PM EST PM EST Resulting Agency Comment Spec In Lab Danette Maxwell APRN CHEMISTRY ORDERABLES Performing Organization Address City/[facility]/ZIP [place] [address] documented in this encounter Visit Diagnoses Diagnosis Cardiomyopathy, unspecified type Systolic congestive heart failure, unspe cified congestive heart failure chronicity Coronary artery rupture Acute myocardial infarction, unspecified site, episode of care unspecified Ischemic cardiomyopathy Other specified forms of chronic ischemi c heart disease Atherosclerosis of rosebud coronary arter y, angina presence unspecified, unspecified whether rosebud or transplanted heart Essential hypertension, malignant Diabetes mellitus due to underlying cond ition with diabetic nephropathy, unspecified 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
--- OUTSIDE RECORDS SUMMARY | 2022-02-25 08:15 | XMS_ITS | Encounter Summary ---
:1945 [place] [address] Care Team Providers Name Role Phone Lovely Vicente MD Primary Care Provider Encounter Details Date Type Department Care Team Description 08/04/2017 Orders Only Cardiac Surgery Makayla Wilson APRN [facility] [place] [address] CARDIAC SURGERY [phone] [place], [place] [address] (Wo rk) Social History Tobacco [...] Cardiology Vitaliy Nobles MD [facility] ER DR [place], [place] [address] (Wo rk) 06/10/2022 Office Visit Dermatology Laura Scherer MD [facility] DR TEJA GR-DERMAT OLOGY [place], [place] [address] (Wo rk) documented as of this encounter Visit Diagnoses Not on filedocumented in this encounter Care Teams Covering Machine Tender Relationship Specialty Start Date End Date Lovely Vicente MD PCP - General 04/16/15 [address] [place] [address] documented as of this encounter
--- OUTSIDE RECORDS SUMMARY | 2022-02-25 08:15 | XMS_ITS | Encounter Summary ---
:1945 Author Organization [facility] [place] [address] Care Team Providers Name Role Phone Lovely Vicente MD Primary Care Provider Reason for Visit Auth/Cert Specialty Diagnoses / Procedures Referred By Contact Refer red To Contact Diagnoses Critical lower limb ischemia CELLULITIS RT FOOT Procedures EMERGENCY Referral ID Status Reason Start Date Expiration Date Visits Requ ested Visits Authorized [id number] 1 1 Encounter Details Date Type Department Care Team Description 08/06/2017 Laboratory Appointment Lab at [facility] [place] [address] Social History Tobacco Use Types Packs/Day [...] [facility] ER DR TADEO [place], [place] [address] (Wo rk) 06/10/2022 Office Visit Dermatology Laura Scherer MD [facility] ER DR TEJA GR-DERMAT OLOGY [place], [place] [address] (Wo rk) documented as [...] Signature Prealbumin 19 (L) 20 - 40 [facility] mg/dL [facility] Comment: Prealbumin levels are generally [...] City/State/[place] [address] (ABNORMAL) Basic Metabolic Panel (non-fasting) (08/06/2017 12:32 PM EST) P athologist Signature Glucose Lvl 92 65 - 199 [facility] mg/dL [facility] Comment: Diabetes: >=200 mg/dL plus [...] [facility] Anion Gap 16 (H) 5 - 15 mmol/L [facility] Calcium 8.5 8.5 - 10.5 mg/dL [facility] Estimated GFR 53 (L) >=60 [facility] Comment: The reported eGFR should be multiplied b y 1.2 for patients. The MDRD is not an appropriate measure o f renal function for patients with body mass extremes or in patients with acute kidney failure. http://[employer]/DHnkdep http://[employer]/DHMCnkf Specimen Anatomical Collection Method Collection Time Receive d Time (Source) Location / / Volume Laterality Blood specimen 08/06/2017 12:32 8 1:15 (specimen) PM EST PM EST Resulting Agency Comment Spec In Lab Arik Clement MD CHEMISTRY ORDERABLES Performing Organization Address City/State/[place] [address] (ABNORMAL) Hemogram (08/06/2017 12:32 PM EST) Analysis Performed At Patho logist Time Signature WBC 11.8 (H) 4.0 - 9.5 [facility] x10(3)/[facility] LABORATORY RBC 3.49 (L) 4.58 - [facility].54 [facility] x10(6)/[facility] LABORATORY Hemoglobin 9.9 (L) 13.7 - [facility] 16.5 gm/dL [facility] Hematocrit 32.0 (L) 40.5 - [facility] 48.5 % [facility] MCV 91.7 82.9 - [facility] 93.1 fL [facility] MCH 28.4 27.5 - [facility] 32.1 pg [facility] MCHC 30.9 (L) 32.0 - [facility] 35.7 gm/dL [facility] Platelets 326 145 - 357 [facility] x10(3)/[facility] LABORATORY RDWSD 53.4 (H) 36.0 - [facility] 45.0 [facility] LABORATORY RDWCV 16.0 (H) 11.4 - [facility] 13.8 % [facility] LABORATORY MPV 9.1 7.6 - 12.9 [facility] LABORATORY nRBC % Auto 0.0 % [facility] LABORATORY nRBC Abs Auto 0.000 0.000 - [facility] 0.000 [facility] x10(3)/[facility] LABORATORY Specimen Anatomical Collection Method Collection Time Receive d Time (Source) Location / / Volume Laterality Blood specimen 08/06/2017 12:32 8 1:15 (specimen) PM EST PM EST Resulting Agency Comment Spec In Lab Arik Clement MD HEMATOLOGY ORDERABLES Performing Organization Address City/State/[place] [address] documented in this encounter Visit Diagnoses Diagnosis Ischemia of foot Unspecified circulatory system disorder documented in this encounter Care Teams Tower Erector Helper Relationship Specialty Start Date End Date Lovely Vicente MD PCP - General 04/16/[address] [place] [address] documented as of this encounter
--- OUTSIDE RECORDS SUMMARY | 2022-02-25 08:15 | XMS_ITS | Encounter Summary ---
:1945 [place] [address] Care Team Providers Name Role Phone Lovely Vicente MD Primary Care Provider Encounter Details Date Type Department Care Team Description 08/05/2017 Notes Only Vascular Surgery at [facility] [place], STACIE [facility] [place] [address] VASCULAR SURGERY [phone] [place], [place] [address] (Wo rk) Social History Tobacco [...] [facility] ER DR TADEO [place], [place] [address] (Wo rk) 06/10/2022 Office Visit Dermatology Laura Scherer MD [facility] DR TEJA GR-DERMAT [place], [place] [address] (Wo rk) documented as of this encounter Visit Diagnoses Not on filedocumented in this encounter Care Teams Motor Patrol Operator Relationship Specialty Start Date End Date Lovely Vicente MD PCP - General 04/16/[address] [place] [address] documented as of this encounter
--- OUTSIDE RECORDS SUMMARY | 2022-02-25 08:15 | XMS_ITS | Encounter Summary ---
:1945 Author Organization [facility] [place] [address] Care Team Providers Name Role Phone Lovely Vicente MD Primary Care Provider Encounter Details Date Type Department Care Team Description 08/04/2017 Notes Only Cardiac Surgery Makayla Wilson APRN [facility] [place] [address] CARDIAC SURGERY [phone] [place] [address] (Wo rk) Social History Tobacco Use Types [...] MD [facility] ER CARDIOLOGY [place], [place] [address] (Wo rk) 06/10/2022 Office Visit Dermatology Laura Scherer MD [facility] DR TE[address] GR[address]DERMAT [place], [place] [address] (Wo rk) documented as of this encounter Visit Diagnoses Not on filedocumented in this encounter Care Teams Service Tester Relationship Specialty Start Date End Date Lovely Vicente MD PCP - General 04/16/[address] [place] [address] documented as of this encounter
--- OUTSIDE RECORDS SUMMARY | 2022-02-25 08:15 | XMS_ITS | Encounter Summary ---
:1945 Author Organization [facility] [place] [address] Care Team Providers Name Role Phone Lovely Vicente MD Primary Care Provider Encounter Details Date Type Department Care Team Description 08/02/2017 Telephone Pain Management at [facility] [place], [place] [address] Social History Tobacco Use Types Packs/Day [...] Management Center Preauthorization Request Patient: Don Fatima [id number] Fax received from [facility] requesting we obtain prior authorization for Lidocaine patches prescribed by Barbra Soares APRN. RX insurance plan: [employer] insurance telephone: [phone] Patient Diagnosis: right foot pain secondary to PVD and ischemia Previous medications attempted: Tylenol, Tramadol, Dilaudid The following action was taken after discussion with the agricultural service worker: _x_ pharmacy informed Authorized dosage or amount: 5% on patch on for 12 hours, then remove for 12 hours. Angeles Rodrigez, RN documented in this encounter Plan of Treatment Upcoming Encounters Date Type Specialty Care Team Description 03/26/2022 Office Visit Cardiology Vitaliy Nobles MD [facility] MEDICAL [facility] ER DR TADEO [place], [place] [address] (Wo rk) 06/10/2022 Office Visit Dermatology Laura Scherer MD [facility] MEDICAL [facility] ER DR TEJA GR-DERMAT [facility] [place], [place] [address] (Wo rk) documented as of this encounter Visit Diagnoses Not on filedocumented in this encounter Care Teams Field Staff Relationship Specialty Start Date End Date Lovely Vicente MD PCP - General 04/16/[address] [place] [address] documented as of this encounter
--- OUTSIDE RECORDS SUMMARY | 2022-02-25 08:15 | XMS_ITS | Encounter Summary ---
:1945 Author Organization [facility] [place] [address] Care Team Providers Name Role Phone Lovely Vicente MD Primary Care Provider Reason for Visit Auth/Cert Specialty Diagnoses / Procedures Referred By Contact Refer red To Contact Diagnoses Critical lower limb ischemia CELLULITIS RT FOOT Procedures EMERGENCY Referral ID Status Reason Start Date Expiration Date Visits Requ ested Visits Authorized [id number] 1 1 Encounter Details Date Type Department Care Team Description 08/04/2017 Laboratory Appointment Lab 3L [place] [address] Social History Tobacco Use Types Packs/Day [...] [facility] ER DR TADEO [place], [place] [address] (Wo rk) 06/10/2022 Office Visit Dermatology Laura Scherer MD [facility] DR TE[address]MAT [place], [place] [address] (Wo rk) documented as of this encounter Visit Diagnoses Not on filedocumented in this encounter Care Teams Railroad Car Painter Relationship Specialty Start Date End Date Lovely Vicente MD PCP - General 04/16/[address] [place] [address] documented as of this encounter
--- OUTSIDE RECORDS SUMMARY | 2022-02-25 08:15 | XMS_ITS | Encounter Summary ---
:1945 [place] [address] Care Team Providers Name Role Phone Lovely Vicente MD Primary Care Provider Encounter Details Date Type Department Care Team Description 08/04/2017 Notes Only Cardiac Surgery Makayla Wilson STATUARY [facility] [place] [address] CARDIAC SURGERY [phone] [place], [place] [address] (Wo rk) Social History Tobacco [...] Nobles MD [facility] CARDIOLOGY [place], [place] [address] (Wo rk) 06/10/2022 Office Visit Dermatology Laura Scherer MD [facility] DR [address]-DERMAT [place], [place] [address] (Wo rk) documented as of this encounter Visit Diagnoses Not on filedocumented in this encounter Care Teams Verification Specialist Relationship Specialty Start Date End Date Lovely Vicente MD PCP - General 04/16/[address] [place] [address] documented as of this encounter
--- OUTSIDE RECORDS SUMMARY | 2022-02-25 08:15 | XMS_ITS | Encounter Summary ---
:1945 Author Organization [facility] [place] [address] Care Team Providers Name Role Phone Lovely Vicente MD Primary Care Provider Reason for Visit Auth/Cert Specialty Diagnoses / Procedures Referred By Contact Refer red To Contact Diagnoses Critical lower limb ischemia CELLULITIS RT FOOT Procedures EMERGENCY Referral ID Status Reason Start Date Expiration Date Visits Requ ested Visits Authorized [id number] 1 1 Encounter Details Date Type Department Care Team Description 08/04/2017 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 [...] Nobles MD [facility] CARDIOLOGY [place], [place] [address] (Wo rk) 06/10/2022 Office Visit Dermatology Laura Scherer MD [facility] DR TE[address] GR[address]MAT [place], [place] [address] (Wo rk) documented as [...] EXAMINATION: XR CHEST PA AND LATERAL (GE PhylogyIC) CLINICAL HISTORY: Checking sternal stabi lity/assess wires [...] sensation documented in this encounter Care Teams Fur Finisher Tailor Relationship Specialty Start Date End Date Lovely Vicente MD PCP - General 04/16/[address] [place] [address] documented as of this encounter
--- OUTSIDE RECORDS SUMMARY | 2022-02-25 08:15 | XMS_ITS | Encounter Summary ---
:1945 Author Organization [facility] [place] [address] Care Team Providers Name Role Phone Lovely Vicente MD Primary Care Provider Reason for Visit Auth/Cert Specialty Diagnoses / Procedures Referred By Contact Refer red To Contact Diagnoses Critical lower limb ischemia CELLULITIS RT FOOT Procedures EMERGENCY Referral ID Status Reason Start Date Expiration Date Visits Requ ested Visits Authorized [id number] 1 1 Encounter Details Date Type Department Care Team Description 08/06/2017 Hospital Encounter [facility] [place] [address] Social History Tobacco Use Types Packs/Day [...] Nobles MD [facility] ER CARDIOLOGY [place], [place] [address] (Wo rk) 06/10/2022 Office Visit Dermatology Laura Scherer MD [facility] DR TEJA GR-DERMAT [facility] [place], [place] [address] (Wo rk) documented as of this encounter Visit Diagnoses Not on filedocumented in this encounter Care Teams Grommet Man Relationship Specialty Start Date End Date Lovely Vicente MD PCP - General 04/16/[address] [place] [address] documented as of this encounter
--- OUTSIDE RECORDS SUMMARY | 2022-02-25 08:15 | XMS_ITS | Encounter Summary ---
:1945 Author Organization [facility] [address] Care Team Providers Name Role Phone Lovely Vicente MD Primary Care Provider Encounter Details Date Type Department Care Team Description 07/29/2017 Transcribe Orders Laboratory Lovely Vicente MD [address] [address] [place], [place] [address] (Wo rk) Social History Tobacco Use Types [...] Vitaliy Nobles MD [facility] MEDICAL [facility] ER DR TADEO [place], [place] [address] (Wo rk) 06/10/2022 Office Visit Dermatology Laura Scherer MD [facility] ER DR TEJA GR[address]MAT [place], [place] [address] (Wo rk) documented as of this encounter Visit Diagnoses Not on filedocumented in this encounter Care Teams Engineer Technician Relationship Specialty Start Date End Date Lovely Vicente MD PCP - General 04/16/[address] [facility] [place] [address] documented as of this encounter
--- OUTSIDE RECORDS SUMMARY | 2022-02-25 08:15 | XMS_ITS | Encounter Summary ---
:1945 [place] [address] Care Team Providers Name Role Phone Lovely Vicente MD Primary Care Provider Encounter Details Date Type Department Care Team Description 08/03/2017 Hospital Encounter Radiology Library at [facility], Tommy Mijares [facility] [place] [address] VASCULAR SURGERY [phone] [place], [place] [address] (Wo rk) Social History Tobacco [...] Vitaliy Nobles MD [facility] CARDIOLOGY [place], [place] [address] ( rk) 06/10/2022 Office Visit Dermatology Laura Scherer MD [facility] DR TEJA GR-DERMAT [place], [place] [address] (Wo rk) documented as of [...] City/State/ZIP Code Phon e Number [facility], [place] documented in this encounter Visit Diagnoses Diagnosis Pain Generalized pain documented in this encounter Care Teams Director Trust Relationship Specialty Start Date End Date Lovely Vicente MD PCP - General 04/16/[address] [place] [address] documented as of this encounter
--- OUTSIDE RECORDS SUMMARY | 2022-02-25 08:15 | XMS_ITS | Encounter Summary ---
:1945 Author Organization [facility] [place] [address] Care Team Providers Name Role Phone Lovely Vicente MD Primary Care Provider Encounter Details Date Type Department Care Team Description 08/03/2017 Telephone Pain Management at Angeles Bueno, [place] [address] Social History Tobacco Use Types Packs/Day [...] Management Center Preauthorization Request Patient: Don Fatima [id number] Fax received from [facility] requesting we obtain prior authorization for Lidocaine Patches prescribed by Barbra Soares APRN. RX insurance plan: [facility] insurance telephone: [phone] Patient ?? Diagnosis: right foot pain secondary to PVD and ischemia ?? Previous medications attempted: Tylenol, Tramadol, Dilaudid Authorization/Reference number: [id number], PBP Code 801 _x_ denied, provider and patient informed _x_ appeal initiated by provider, patient informed Angeles Rodrigez, RN documented in this encounter Plan of Treatment Upcoming Encounters Date Type Specialty Care Team Description 03/26/2022 Office Visit Cardiology Vitaliy Nobles MD [facility] DR TADEO [place], [place] [address] (Wo rk) 06/10/2022 Office Visit Dermatology Laura Scherer MD [facility] MED[facility] [address] TEJA [address]DERMAT [place], [place] [address] (Wo rk) documented as of this encounter Visit Diagnoses Not on filedocumented in this encounter Care Teams Data Virtualization Consultant Relationship Specialty Start Date End Date Lovely Vicente MD PCP - General 04/16/15 [facility] [address] [place] [address] documented as of this encounter
--- OUTSIDE RECORDS SUMMARY | 2022-02-25 08:15 | XMS_ITS | Encounter Summary ---
:1945 Author Organization [facility] [place] [address] Care Team Providers Name Role Phone Lovely Vicnete MD Primary Care Provider Encounter Details Date Type Department Care Team Description 07/29/2017 Transcribe Orders Laboratory Lovely Vicente MD [address] [address] [place], [place] [address] (Wo rk) Social History Tobacco Use Types [...] 03/26/2022 Office Visit Cardiology Vitaliy Nobles MD [facility] MEDICAL [facility] ER DR TADEO [place], [place] [address] (Wo rk) 06/10/2022 Office Visit Dermatology Laura Scherer MD [facility] ER DR TEJA GR-DERMAT [place], [place] [address] (Wo rk) documented as of this encounter Visit Diagnoses Not on filedocumented in this encounter Care Teams Mint Machine Operator Relationship Specialty Start Date End Date Lovely Vicente MD PCP - General 04/16/[address] [facility] [place] [address] documented as of this encounter
--- OUTSIDE RECORDS SUMMARY | 2022-02-25 08:15 | XMS_ITS | Encounter Summary ---
:1945 Author Organization [facility] Address [address] [facility] [place] [address] Care Team Providers Name Role Phone Lovely Vicente MD Primary Care Provider Encounter Details Date Type Department Care Team Description 07/29/2017 Transcribe Orders Laboratory Lovely Vicente, Coronary artery rupture; [facility] Ischemic cardiomyopathy; [facility] [address] Atherosclerosis of [place] co ronary artery, angina presence unspecified, unspecified whether [place] or transplanted heart; [place], [place] [address] Essential hypertension, malignant; [address] [place], [place] 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, unspecified senior care insulin use status [phone] [id number] Social History Tobacco Use Types Packs/Day Years [...] [facility] CARDIOLOGY [place], [place] [address] (Wo rk) 06/10/2022 Office Visit Dermatology Laura Scherer MD [facility] ER DR [address]-DERMAT [place], [place] [address] (Wo rk) Scheduled Orders Name Type Priority Associated Diagnoses Order S chedule Lab Use Only, Fax Lab Routine Coronary arter y rupture Expected: 07/29/2017 Request Ischemic cardiom yopathy (Approximate), Atherosclerosis of [place] Ex jose: 07/29/2018 coronary artery, angina presence unspecified, unspecified whether [place] or transplanted heart Essential hypertension, malignant documented as of this encounter Results Uric acid (08/04/2017 12:55 PM EST) P athologist Signature Uric Acid 7.1 3.5 - 8.5 [facility] mg/dL [facility] Specimen Anatomical Collection Method Collection Time Receive d Time (Source) Location / / Volume Laterality Blood specimen 08/04/2017 12:55 8 1:01 (specimen) PM EST PM EST Resulting Agency Comment Spec In Lab Lovely Vicente MD CHEMISTRY ORDERABLES Performing Organization Address City/State/[place] [address] (ABNORMAL) Hemogram (08/04/2017 12:55 PM EST) Analysis Performed At Patho logist Time Signature WBC 15.8 (H) 4.0 - 9.5 [facility] RY[facility] x10(3)/[facility] LABORATORY RBC 3.48 (L) 4.58 - [place] RYAN 5.54 [facility] x10(6)/[facility] LABORATORY Hemoglobin 9.9 (L) 13.7 - [facility] 16.5 gm/dL [facility] Hematocrit 31.4 (L) 40.5 - [facility] 48.5 % [facility] MCV 90.2 82.9 - [facility] 93.1 fL [facility] MCH 28.4 27.5 - [facility] 32.1 pg [facility] MCHC 31.5 (L) 32.0 - [facility] 35.7 gm/dL [facility] Platelets 310 145 - 357 [facility] x10(3)/[facility] LABORATORY RDWSD 51.8 (H) 36.0 - [facility] 45.0 [facility] LABORATORY RDWCV 15.8 (H) 11.4 - [facility] 13.8 % [facility] MPV 8.9 7.6 - 12.9 [facility] LABORATORY nRBC % Auto 0.0 % [facility] LABOR[facility]ORY nRBC Abs Auto 0.000 0.000 - [facility] 0.000 [facility] x10(3)/[facility] LABORATORY Specimen Anatomical Collection Method Collection Time Receive d Time (Source) Location / / Volume Laterality Blood specimen 08/04/2017 12:55 8 1:01 (specimen) PM EST PM EST Resulting Agency Comment Spec In Lab Lovely Vicente MD HEMATOLOGY ORDERABLES Performing Organization Address City/State/[place] [address] (ABNORMAL) Comprehensive metabolic panel (non-fasting) (08/04/2017 12:55 PM EST) P athologist Signature Glucose Lvl 208 (H) 65 - 199 [facility] mg/dL [facility] Comment: Diabetes: >=200 mg/dL plus symp toms BUN 32 (H) 10 - 20 mg/dL [facility] Creatinine 1.58 (H) 0.80 - 1.50 mg/dL [facility] Sodium 136 135 - [...] LABORATORY AST 20 0 - 39 unit/L [facility] ALT 21 0 - 55 unit/L [facility] Alk Phos 93 40 - 120 unit/L [facility] Total Bilirubin 0.4 0.2 - 1.3 mg/dL [facility]ORY Estimated GFR 43 (L) >=60 [facility] Comment: The reported eGFR should be multiplied b y 1.2 for patients. The MDRD is not an appropriate measure o f renal function for patients with body mass extremes or in patients with acute kidney failure. http://[employer]/DHnkdep http://[employer]/DHMCnkf Specimen Anatomical Collection Method Collection Time Receive d Time (Source) Location / / Volume Laterality Blood specimen 08/04/2017 12:55 8 1:01 (specimen) PM EST PM EST Resulting Agency Comment Spec In Lab Lovely Vicente MD CHEMISTRY ORDERABLES Performing Organization Address City/State/[place] [address] (ABNORMAL) Hemoglobin A1c (08/04/2017 [...] Mellitus, Diabetes Care 2013; 36: Suppl. 1, S67-51 Est Avg Gluc See note mg/dL [place] [...] with hemoglobinopathies. Additional resources are available on [facility] ADA website. Macario HAMMOND, Ruthann J, Deysi R, et al. ??Tr anslating the A1C assay into estimated average glucose values. ??Diabetes Care 2008:31(8):7318-2778. Specimen Anatomical Collection Method Collection Time Receive d Time (Source) Location / / Volume Laterality Blood specimen 08/04/2017 12:55 8 1:01 (specimen) PM EST PM EST Resulting Agency Comment Spec In Lab Lovely Vicente MD CHEMISTRY ORDERABLES Performing Organization Address City/State/[place] [address] (ABNORMAL) Prothrombin Time (08/04/2017 12:55 PM EST) P athologist Signature PT 35.4 (H) 11.8 - 14.0 [facility] LABORATORY INR 3.5 (H) [...] Organization Address City/State/[place] [address] documented in this encounter Visit Diagnoses Diagnosis Coronary artery rupture Acute myocardial infarction, unspecified site, episode of care unspecified Ischemic cardiomyopathy Other specified forms of chronic ischemi c heart disease Atherosclerosis of [place] coronary arter y, angina presence unspecified, unspecified whether [place] or transplanted heart Essential hypertension, malignant Diabetes mellitus due to underlying cond ition with diabetic nephropathy, unspecified terminologist insulin use status documented in this encounter Care Teams Security Sme Relationship Specialty Start Date End Date Lovely Vicente MD PCP - General 04/16/[address] [place] [address] documented as of this encounter
--- OUTSIDE RECORDS SUMMARY | 2022-02-25 08:15 | XMS_ITS | Encounter Summary ---
:1945 Author Organization [facility] [place] [address] Care Team Providers Name Role Phone Lovely Vicente MD Primary Care Provider Reason for Visit Reason Comments Deep Vein Thrombosis Auth/Cert Specialty Diagnoses / Procedures Referred By Contact Refer red To Contact Diagnoses Critical lower limb ischemia CELLULITIS RT FOOT Procedures EMERGENCY Referral ID Status Reason Start Date Expiration Date Visits Requ ested Visits Authorized [id number] 1 1 Encounter Details Date Type Department Care Team Description 08/04/2017 Office Visit Vascular Surgery at [facility] itical lower limb [facility] ischemia Counts include [facility] beds at [facility] [address] [place], [place] VASCULAR SURGERY [id number] [place] [address] [phone] Social History Tobacco Use Types Packs/Day Years [...] was discharged on Coumadin. ??He presented to [facility] on 07/20 with mottled [...] [facility] [address] [place], [place] [address] (Wo rk) 06/10/2022 Office Visit Dermatology Laura Scherer MD [facility] [address] TE[address]DERMAT [place], [place] [address] (Wo rk) documented as of this encounter Visit Diagnoses Diagnosis Critical lower limb ischemia Unspecified circulatory system disorder documented in this encounter Care Teams Record Label Intern Relationship Specialty Start Date End Date Lovely Vicente MD PCP - General 04/16/15 [address] [facility] [address] [place] [address] documented as of this encounter
--- OUTSIDE RECORDS SUMMARY | 2022-02-25 08:15 | XMS_ITS | Encounter Summary ---
:1945 [place] [address] Care Team Providers Name Role Phone Lovely Vicente MD Primary Care Provider Encounter Details Date Type Department Care Team Description 07/29/2017 Telephone Pain Aurelia Crawford MD [facility] [place] [address] PAIN CLINIC [phone] [place], [place] [address] (Wo rk) Social History Tobacco [...] MD [facility] MEDICAL [facility] ER CARDIOLOGY [place], [place] [address] (Wo rk) 06/10/2022 Office Visit Dermatology Laura Scherer MD [facility] [address] TE[address] GR[address] [place], [place] [address] (Wo rk) documented as of this encounter Visit Diagnoses Not on filedocumented in this encounter Care Teams Parking Lot Attendant And Cashier Relationship Specialty Start Date End Date Lovely Vicente MD PCP - General 04/16/15 [facility] [address] [place] [address] documented as of this encounter
--- OUTSIDE RECORDS SUMMARY | 2022-02-25 08:15 | XMS_ITS | Encounter Summary ---
:1945 [place] [address] Care Team Providers Name Role Phone Lovely Vicente MD Primary Care Provider Reason for Visit Auth/Cert Specialty Diagnoses / Procedures Referred By Contact Refer red To Contact Diagnoses Critical lower limb ischemia CELLULITIS RT FOOT Procedures EMERGENCY Referral ID Status Reason Start Date Expiration Date Visits Requ ested Visits Authorized [id number] 1 1 Encounter Details Date Type Department Care Team Description 08/09/2017 Anesthesia Event Main Operating Room Daniele Lizama MD [facility] [place] [address] [facility] Rob Jones MD [facility] [place] [address] [place] [address] Anesthesia Record Procedure Summary Procedure Name [...] woulds also Shayy Fuller RN Willi ams Odry made at groin and lower M, RN leg to facilitate removal of vein); transverse, laparoscopic punctures (specify); 08/16/17; 1047 PIV 07/27/17; 0046; basilic 07/27/17 0046 by 8 1047 by vein (medial side of Alexi Knowles, Dory arm), right; VAMSI Rios, RN lmsb-yli-omeosk catheter system; 20 gauge; 08/16/17; 1047 PIV 07/29/17; 1413; median 07/29/17 1413 by 08/16/17 1047 by cubital vein (antecubital Magdalene Hickey Williams, Dory fossa), left; VAMSI Wyatt, RN rlaj-myq-launze catheter system; 20 gauge; 08/16/17; 1047 PIV 08/06/17; 1742; cephalic 08/06/17 1742 by 0920 by vein (lateral side of Taylor Laureano Danah y, Caitlyn C, arm), right; VAMSI BONNER tqrh-jzs-lnqksw catheter system; 22 gauge, 1 in length; Eliseo LAUREANO RN VAS; distraction, intradermal injection, tolerated well, appears comfortable; 0; 08/16/17; 0920 Wound 08/07/17; 1335; knee; 08/07/17 1335 by 08/16/17 1047 by laceration; wound occured Barbara Albert iams, Dory IRRIGATOR SPRINKLING SYSTEM; 08/16/17; 1047 VAMSI Alonzo, RN PIV 08/07/17; 1734; cephalic 08/07/17 1734 by 1047 by vein (lateral side of Kendrick, Carlos W, Willia ms, Dory arm), left; MARCIE Wyatt RN hwua-ckx-vfrihp catheter system; 22 gauge; distraction, intradermal injection, [...] MD - 08/09/2017 9:01 AM EST [facility] Department of Anesthesiology Post-procedure Note Patient: Don Fatima Procedure Summary Date Anesthesia Start Anesthesia Stop Room / Location 08/09/17 0802 0901 [facility] OR 14 / [facility] MAIN OR Procedure Diagnosis Surgeon Responsible Provider AMPUTATION, 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 Nerve [...] performed by Manny Mcknight MD at [facility] MAIN OR ??? PRO CABG, ARTERIAL, SINGLE N/A 07/07/2017 @CABG, USING ARTERIAL GRAFT;SINGLE ARTERIAL GRAFT (WRVU 33.75) performed by Yuan Retana MD at [facility] MAIN OR ??? PRO CABG, ARTERY-VEIN, TWO N/A 07/07/2017 @CABG, TWO VENOUS GRAFTS & ARTERIAL GRAFT (WRVU 7.93) performed by Yuan Retana MD at [facility] MAIN OR ??? PRO COLONOSCOPY, REMV LESN, SNARE 01/16/2014 COLONOSCOPY, POLYPECTOMY, REMOVAL LESION BY SNARE performed by Nohemi Jaimes MD at [facility] ENDOSCOPY ??? PRO ENDOSCOPY W/VIDEO-ASST VEIN HARVEST, CABG Right 07/07/2017 ENDOSCOPIC HARVEST VEIN(S) FOR CABG (WRVU 0.31) performed by Yuan Retana MD at [facility] MAIN OR ??? PRO THYROIDECTOMY 03/28/2013 THYROIDECTOMY, TOTAL OR COMPLETE performed by Manny Mkcnight MD at [facility] MAIN OR Social History Substance Use [...] adequate IV access. Brody Santillan MD PGY-2, Bar Finish Operator Pager #[phone] Anesthesiology Staff (Dewhirst): Pre-op summary note as [...] MD [facility] [address] [place], [place] [address] (Wo rk) 06/10/2022 Office Visit Dermatology Laura Scherer MD [facility] DR [address] [place] [place], [place] [address] (Wo rk) documented as of [...] Length: 10 cm Gauge: 21 Needle Type: K-dnbqe-ewqxy Medication injection made in crementally with aspirations. [...] PRN, Starting on 08/09/17 at 0824, Until 08/09/17 at 0901, Pain, Anesthesia Intra-op, Routine heparin 25,000 units in Rate/Dose Verify 08/09/2017 7:33 1,350 Unit s/hr 27 mL/hr dextrose 5% 500 mL PM EST infusion 0-5,000 Units/hr (0-100 mL/hr), Intravenous, CONTINUOUS, Starting on 08/07/17 at 0745, Until 08/10/17 at 1122, Begin infusion at 1,300 units [...] Procedure) documented in this encounter Care Teams Bank Representative Relationship Specialty Start Date End Date Lovely Vicente MD PCP - General 04/16/[address] [place] [address] documented as of this encounter
--- OUTSIDE RECORDS SUMMARY | 2022-02-25 08:15 | XMS_ITS | Encounter Summary ---
:1945 Author Organization [place] [address] Care Team Providers Name Role Phone Lovely Vicente MD Primary Care Provider Reason for Visit Auth/Cert Specialty Diagnoses / Procedures Referred By Contact Refer red To Contact Diagnoses Critical lower limb ischemia CELLULITIS RT FOOT Procedures EMERGENCY Referral ID Status Reason Start Date Expiration Date Visits Requ ested Visits Authorized [id number] 1 1 Encounter Details Date Type Department Care Team Description 08/06/2017 Clinical Support Same Day at [facility]schemia of foot [facility] [place] [address] Social History Tobacco Use Types Packs/Day [...] noother symptoms except severe right foot pain. [facility] clinic called as pt on [...] MD [facility] [address] [place], [place] [address] (Wo rk) 06/10/2022 Office Visit Dermatology Laura Scherer MD [facility] [address] [place], [place] [address] (Wo rk) documented as of [...] 444 ms MUSE SYSTEM (Bezet) Calculated P Geronimo 44 degrees MUSE SYSTEM Calculated R Geronimo -31 degrees MUSE SYSTEM Calculated T Geronimo 106 degrees MUSE SYSTEM INTERPRETATION Normal sinus [...] disorder documented in this encounter Care Teams Wool Classer Relationship Specialty Start Date End Date Lovely Vicente MD PCP - General 04/16/[address] [place] [address] documented as of this encounter
--- OUTSIDE RECORDS SUMMARY | 2022-02-25 08:15 | XMS_ITS | Encounter Summary ---
:1945 Author Organization [facility] [place] [address] Care Team Providers Name Role Phone Lovely Vicente MD Primary Care Provider Reason for Visit Auth/Cert Specialty Diagnoses / Procedures Referred By Contact Refer red To Contact Diagnoses Critical lower limb ischemia CELLULITIS RT FOOT Procedures EMERGENCY Referral ID Status Reason Start Date Expiration Date Visits Requ ested Visits Authorized [id number] 1 1 Encounter Details Date Type Department Care Team Description 08/04/2017 [facility] [place] [phone] Social History Tobacco Use Types Packs/Day Years [...] Nobles MD [facility] CARDIOLOGY [place], [place] [address] (Wo rk) 06/10/2022 Office Visit Dermatology Laura Scherer MD [facility] DR [address] [place]LOG[place], [place] [address] (Wo rk) documented as of [...] [facility] Range Method Time Signature VB Text Department: Vascular Surgery Lab VASCUBASE Report Patient: [id number] (DON HOANG) CPT: 80950 ICD10: I82.541 Referring Physician: TAMIKO HUTSON ?? [...] extremity documented in this encounter Care Teams Manuscripts Archivist Relationship Specialty Start Date End Date Lovely Vicente MD PCP - General 04/16/[address] [place] [address] documented as of this encounter
--- OUTSIDE RECORDS SUMMARY | 2022-02-25 08:15 | XMS_ITS | Encounter Summary ---
:1945 Author Organization [facility] [place] [address] Care Team Providers Name Role Phone Lovely Vicente MD Primary Care Provider Reason for Visit Reason Comments Follow-up Encounter Details Date Type Department Care Team Description 07/29/2017 Office Visit Cardiac Surgery at [facility] Yuan Retana MD S/P CABG x 3 [facility] [place] [address] CARDIOTHORACIC SURGERY [phone] [place], [place] [address] (Wo rk) Social History Tobacco [...] evaluation by vascular surgery. Yuan Retana MD [phone] documented in this encounter Plan of Treatment Upcoming Encounters Date Type Specialty Care Team Description 03/26/2022 Office Visit Cardiology Vitaliy Nobles MD [facility] [address] [place], [place] [address] (Wo rk) 06/10/2022 Office Visit Dermatology Laura Scherer MD [facility] DR [address]LOG[address] [place], [place] [address] (Wo rk) documented as of this encounter Visit Diagnoses Diagnosis S/P CABG x 3 Postsurgical aortocoronary bypass status documented in this encounter Care Teams Enrollment Coordinator Relationship Specialty Start Date End Date Lovely Vicente MD PCP - General 04/16/15 [address] [address] [place] [address] documented as of this encounter
--- OUTSIDE RECORDS SUMMARY | 2022-02-25 08:15 | XMS_ITS | Encounter Summary ---
:1945 [place] [address] Care Team Providers Name Role Phone Lovely Vicente MD Primary Care Provider Encounter Details Date Type Department Care Team Description 07/29/2017 Hospital Encounter Vascular Lab at Critic monica Huber lower limb [facility] [place] [phone] Social History Tobacco Use Types Packs/Day Years [...] Vitaliy Nobles MD [facility] [address] [place], [place] [address] (Wo rk) 06/10/2022 Office Visit Dermatology Laura Scherer MD [facility] DR [address] [place], [place] [address] (Wo rk) documented as of this encounter Visit Diagnoses Diagnosis Critical lower limb ischemia Unspecified circulatory system disorder documented in this encounter Care Teams Atv Mechanic Relationship Specialty Start Date End Date Lovely Vicente MD PCP - General 04/16/[address] [place] [address] documented as of this encounter
--- OUTSIDE RECORDS SUMMARY | 2022-02-25 08:15 | XMS_ITS | Encounter Summary ---
:1945 Author Organization [facility] [place] [address] Care Team Providers Name Role Phone Lovely Vicente MD Primary Care Provider Reason for Visit Reason Comments Foot Ulcer WOUND CHECK Auth/Cert Specialty Diagnoses / Procedures Referred By Contact Refer red To Contact Diagnoses Critical lower limb ischemia CELLULITIS RT FOOT Procedures EMERGENCY Referral ID Status Reason Start Date Expiration Date Visits Requ ested Visits Authorized [id number] 1 1 Encounter Details Date Type Department Care Team Description 08/06/2017 [facility] limb [facility] ischemia [facility] [address] [place], [place] VASCULAR SURGERY [address] [place] [address] [phone] Social History Tobacco Use Types Packs/Day Years [...] Smith MD - 08/06/2017 1:00 PM EST [facility] staff: 1. RIGHT leg CLI [...] Nobles MD [facility] CARDIOLOGY [place], [place] [address] (Wo rk) 06/10/2022 Office Visit Dermatology Laura Scherer MD [facility] DR [address] [place], [place] [address] (Wo rk) documented as of this encounter Visit Diagnoses Diagnosis Critical lower limb ischemia Unspecified circulatory system disorder documented in this encounter Care Teams Pleater Hand Relationship Specialty Start Date End Date Lovely Vicente MD PCP - General 04/16/[address] [place] [address] documented as of this encounter
--- OUTSIDE RECORDS SUMMARY | 2022-02-25 08:15 | XMS_ITS | Encounter Summary ---
:1945 Author Organization [facility] [place] [address] Care Team Providers Name Role Phone Lovely Vicente MD Primary Care Provider Encounter Details Date Type Department Care Team Description 08/06/2017 Orders Only Vascular Surgery at [facility] Eden Moss APRN Ischemia of foot [facility] Jorge [facility] [place] [address] VASCULAR SURGERY [phone] [place], [place] [address] (Wo rk) Social History Tobacco [...] Visit Cardiology Vitaliy Nobles MD [facility] ER DR [address] [place], [place] [address] (Wo rk) 06/10/2022 Office Visit Dermatology Laura Scherer MD [facility] ER DR TEJA [address] OLOGY [place], [place] [address] (Wo rk) documented as of [...] 444 ms MUSE SYSTEM (Bezet) Calculated P Marquez 44 degrees MUSE SYSTEM Calculated R Marquez -31 degrees MUSE SYSTEM Calculated T Marquez 106 degrees MUSE SYSTEM INTERPRETATION Normal sinus [...] Signature Prealbumin 19 (L) 20 - 40 [facility] Comment: Prealbumin levels are generally lower [...] City/State/[place] [address] (ABNORMAL) Basic Metabolic Panel (non-fasting) (08/06/2017 12:32 PM EST) P athologist Signature Glucose Lvl 92 65 - 199 [facility] mg/dL [facility] Comment: Diabetes: >=200 mg/dL plus symp toms BUN 29 (H) 10 - 20 mg/dL [facility] Creatinine 1.33 0.80 - 1.50 mg/dL [facility] Sodium 138 135 - 145 [...] CENTER LABORATORY Estimated GFR 53 (L) >=60 [facility] Comment: The reported eGFR should be multiplied b y 1.2 for patients. The MDRD is not an appropriate measure o f renal function for patients with body mass extremes or in patients with acute kidney failure. [email or web address].Aptera/DHnkdep http://[employer]/DHMCnkf Specimen Anatomical Collection Method Collection Time Receive d Time (Source) Location / / Volume Laterality Blood specimen 08/06/2017 12:32 8 1:15 (specimen) PM EST PM EST Resulting Agency Comment Spec In Lab Arik Clement MD CHEMISTRY ORDERABLES Performing Organization Address City/State/[place] [address] (ABNORMAL) Hemogram (08/06/2017 12:32 PM EST) Analysis Performed At Patho logist Time Signature WBC 11.8 (H) 4.0 - 9.5 [facility] x10(3)/[facility] LABORATORY RBC 3.49 (L) 4.58 - [facility] 5.54 [facility] x10(6)/[facility] LABORATORY Hemoglobin 9.9 (L) 13.7 - [facility] 16.5 gm/dL [facility] Hematocrit 32.0 (L) 40.5 - [facility] 48.5 % [facility] MCV 91.7 82.9 - [facility] 93.1 [facility] LABORATORY MCH 28.4 27.5 - [facility] 32.1 pg [facility] MCHC 30.9 (L) 32.0 - [facility] 35.7 gm/dL [facility] Platelets 326 145 - 357 [facility] x10(3)/[facility] LABORATORY RDWSD 53.4 (H) 36.0 - [facility] 45.0 [facility] LABORATORY RDWCV 16.0 (H) 11.4 - [facility] 13.8 % [facility] MPV 9.1 7.6 - 12.9 [facility] LABORATORY nRBC % Auto 0.0 % [facility] LABORATORY nRBC Abs Auto 0.000 0.000 - [facility] 0.000 [facility] x10(3)/[facility] LABORATORY Specimen Anatomical Collection Method Collection Time Receive d Time (Source) Location / / Volume Laterality Blood specimen 08/06/2017 12:32 8 1:15 (specimen) PM EST PM EST Resulting Agency Comment Spec In Lab Arik Clement MD HEMATOLOGY ORDERABLES Performing Organization Address City/State/ZIP [place] [address] documented in this encounter Visit Diagnoses Diagnosis Ischemia of foot Unspecified circulatory system disorder documented in this encounter Care Teams Collar Tailor Relationship Specialty Start Date End Date Lovely Vicente MD PCP - General 04/16/[address] [place] [address] documented as of this encounter
--- OUTSIDE RECORDS SUMMARY | 2022-02-25 08:15 | XMS_ITS | Encounter Summary ---
:1945 [place] [address] Care Team Providers Name Role Phone Lovely Vicente MD Primary Care Provider Encounter Details Date Type Department Care Team Description 08/04/2017 Notes Only Pain Management at Barbra Bruno, [place] [facility] [place] [address] [place] [address] [phone] (Wo rk) Social History Tobacco Use Types [...] bid) at this time. Barbra Soares, MSN, QUARANTINE INSPECTOR-BC, [facility] Pain [facility] Clinic documented in this encounter Plan of Treatment Upcoming Encounters Date Type Specialty Care Team Description 03/26/2022 Office Visit Cardiology Vitaliy Nobles MD [facility] ER [address] TADE[address] [place], [place] [address] (Wo rk) 06/10/2022 Office Visit Dermatology Laura Scherer MD [facility] [address] [place], [place] [address] (Wo rk) documented as of this encounter Visit Diagnoses Not on filedocumented in this encounter Care Teams Machine Milker Relationship Specialty Start Date End Date Lovely Vicente MD PCP - General 04/16/[address] [place] [address] documented as of this encounter
--- OUTSIDE RECORDS SUMMARY | 2022-02-25 08:15 | XMS_ITS | Encounter Summary ---
:1945 Author Organization [facility] [place] [address] Care Team Providers Name Role Phone Lovely Vicente MD Primary Care Provider Reason for Visit Reason Comments Pain Management Ankle Pain Toe Pain Encounter Details Date Type Department Care Team Description 07/30/2017 Office Visit Pain Management at Barbra Soares, Per ipheral neuropathy [place] TELEVISION PRODUCTION CLERK due to ischemia [facility] [address], [place], [place] [phone] Social History Tobacco Use Types Packs/Day Years [...] Soares APRN - 07/30/2017 1:45 PM EST [facility] [place] [address] Phone: PAIN MANAGEMENT NEW PATIENT / CONSULTATION NOTE DATE OF VISIT 07/30/2017 Patient Don Fatima 1945 REFERRING PROVIDER Lovely Vicente MD [address] [place] [address] PRIMARY CARE PROVIDER Lovely Vicente MD CHIEF [...] much relief PAST THERAPIES: Nothing MEDICATIONS The [place] Prescription Monitoring Program was checked [...] 33.75) performed by Yuan Retana MD at [facility] OR ??? PRO CABG, ARTERY-VEIN, TWO N/A 07/07/2017 @CABG, TWO VENOUS GRAFTS & ARTERIAL GRAFT (WRVU 7.93) performed by Yuan Retana MD at [facility] OR ??? PRO COLONOSCOPY, REMV LESN, SNARE 01/16/2014 COLONOSCOPY, POLYPECTOMY, REMOVAL LESION BY SNARE performed by Nohemi Jaimes MD at [facility] ENDOSCOPY ??? PRO ENDOSCOPY W/VIDEO-ASST VEIN HARVEST, CABG Right 07/07/2017 ENDOSCOPIC HARVEST VEIN(S) FOR CABG (WRVU 0.31) performed by Yuan Retana MD at [facility] OR ??? PRO THYROIDECTOMY 03/28/2013 THYROIDECTOMY, TOTAL OR COMPLETE performed by Manny Mcnkight MD at [facility] MAIN OR FAMILY HISTORY [...] referral, Lovely Vicente MD [address] [place] [address]. 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
--- OUTSIDE RECORDS SUMMARY | 2022-02-25 08:15 | XMS_ITS | Encounter Summary ---
:1945 Author Organization [facility] [place] [address] Care Team Providers Name Role Phone Lovely Vicente MD Primary Care Provider Reason for Visit Auth/Cert Specialty Diagnoses / Procedures Referred By Contact Refer red To Contact Diagnoses Critical lower limb ischemia CELLULITIS RT FOOT Procedures EMERGENCY Referral ID Status Reason Start Date Expiration Date Visits Requ ested Visits Authorized [id number] 1 1 Encounter Details Date Type Department Care Team Description 08/04/2017 Hospital Encounter XRay at [facility] Danette Maxwell Incisional pain [address] [place] [address] Dr Gomes, TURNING MACHINE OPERATOR HELPER [facility] [address] CARDIOLOGY [place], [place] [address] Social History Tobacco Use Types [...] Vitaliy Nobles MD [facility] CARDIOLOGY [place], [place] [address] (Wo rk) 06/10/2022 Office Visit Dermatology Laura Scherer MD [facility] DR [address] OLOG[address] [place], [place] [address] (Wo rk) documented as [...] findings, Daniele gutiérrez 08/04/2017 4:13 PM Danette A Hans QUINONES IMG DX ORDERABLES documented in this encounter Visit Diagnoses Diagnosis Incisional pain Disturbance of skin sensation documented in this encounter Care Teams Outside Contractor Sales Relationship Specialty Start Date End Date Lovely Vicente MD PCP - General 04/16/[address] [place] [address] documented as of this encounter
--- OUTSIDE RECORDS SUMMARY | 2022-02-25 08:15 | XMS_ITS | Encounter Summary ---
:1945 [place] [address] Care Team Providers Name Role Phone Lovely Vicente MD Primary Care Provider Encounter Details Date Type Department Care Team Description 08/03/2017 Hospital Encounter Radiology Library at [place], Tommy Mijares [facility] [place] [address] VASCULAR SURGERY [phone] [place], [place] [address] (Wo rk) Social History Tobacco [...] [facility] CARDIOLOGY [place], [place] [address] ( rk) 06/10/2022 Office Visit Dermatology Laura Scherer MD [facility] [address] [place], [place] [address] (Wo rk) documented as [...] City/State/ZIP Code Phon e Number [facility] [place], [place] documented in this encounter Visit Diagnoses Diagnosis Pain Generalized pain documented in this encounter Care Teams Behavioral Health Professional Relationship Specialty Start Date End Date Lovely Vicente MD PCP - General 04/16/[address] [place] [address] documented as of this encounter
--- OUTSIDE RECORDS SUMMARY | 2022-02-25 08:15 | XMS_ITS | Encounter Summary ---
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 Patient [...] SETUP performed by Manny Mcknight MD at [facility] MAIN OR ??? PRO CABG, ARTERIAL, SINGLE N/A 07/07/2017 @CABG, USING ARTERIAL GRAFT;SINGLE ARTERIAL GRAFT (WRVU 33.75) performed by Yuan Retana MD at [facility] MAIN OR ??? PRO CABG, ARTERY-VEIN, TWO N/A 07/07/2017 @CABG, TWO VENOUS GRAFTS & ARTERIAL GRAFT (WRVU 7.93) performed by Yuan Retana MD at [facility] MAIN OR ??? PRO COLONOSCOPY, REMFlash MOCK, SNARE 01/16/2014 COLONOSCOPY, POLYPECTOMY, REMOVAL LESION BY SNARE performed by Nohemi Jaimes MD at [facility] ENDOSCOPY ??? PRO ENDOSCOPY W/VIDEO-ASST VEIN HARVEST, CABG Right 07/07/2017 ENDOSCOPIC HARVEST VEIN(S) FOR CABG (WRVU 0.31) performed by Yuan Retana MD at [facility] MAIN OR ??? 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 Hank Zahng Vascular Surgery, PGY2 Pager #[phone] Associated attestation - Arik Clement MD - [...] Cardiology Vitaliy Nobles MD [facility] [address] [place], [place] [address] (Wo rk) 06/10/2022 Office Visit Dermatology Laura Scherer MD [facility] DR TE[address] GR-DERMAT [place], [place] [address] (Wo rk) documented as of [...] Component Value Ref Test Analysis Performed At [facility] gist Range Method Time Signature VB Text Department: Vascular Surgery Lab VASCUBASE Report Patient: [id number] (GREGORY FATIMA) CPT: 53380 ICD10: I82.541 Referring Physician: TAMIKO JIMÉNEZ ?? [...] Signature POC Glucose 128 65 - 199 [facility] mg/dL [facility] LABORATORY Comment: Supplemental ranges: <140 mg/dL before meals <180 mg/dL all other times of the day Specimen Anatomical Collection Method Collection Time Receive d Time (Source) Location / / Volume Laterality Blood specimen 07/29/2017 2:28 PM 018 2:28 (specimen) EST PM EST Tamiko Jiménez MD POINT OF CARE TEST ORDERABLE S Performing Organization Address City/[facility]/ZIP [place] [address] (ABNORMAL) D-Dimer, Quantitative (07/29/2017 2:15 PM EST) [facility] Method Time Signature D-Dimer, Quant 1,699 (H) 0 - 500 [facility] FEU ng/ml [facility] Comment: The D-Dimer assay [...] Jiménez MD HEMATOLOGY ORDERABLES Performing Organization Address [facility]/ZIP [place] [address] (ABNORMAL) Differential, Automated (07/29/2017 2:15 PM EST) [facility] Method Time Signature Neutrophils % 82.5 % [facility] LABORATORY Neutr Abs (ANC) 10.21 (H) 1.70 - [facility] 6.10 [facility] x10(3)/[facility] L LABORATORY Lymphocytes % 7.1 % [facility] LABORATORY Lymphocytes Abs 0.9 0.9 - 3.2 [facility] x10(3)/[facility] LABORATORY Monocytes % 6.5 % [facility] LABORATORY Monocyte Abs 0.8 0.3 - 0.9 [facility] x10(3)/[facility] LABORATORY Eosinophils % 2.7 % [facility] LABORATORY Eosinophils Abs 0.3 0.0 - 0.4 [facility] x10(3)/[facility] LABORATORY Basophils % 0.6 % [facility] LABORATORY Basophils Abs 0.1 0.0 - 0.1 [facility] x10(3)/[facility] LABORATORY Immature Gran % 0.60 % [...] Organization Address City/State/ZIP Code Phon e Number [place] [id number] (ABNORMAL) Hemogram (07/29/2017 2:15 PM EST) Analysis Performed At Patho logist Time Signature WBC 12.4 (H) 4.0 - 9.5 [facility] x10(3)/[facility] LABORATORY RBC 4.17 (L) 4.58 - [facility] 5.54 [facility] x10(6)/[facility] LABORATORY Hemoglobin 12.1 (L) 13.7 [facility] 16.5 gm/dL [facility] LABORATORY Hematocrit 38.1 (L) 40.5 - [facility] 48.5 % [facility] MCV 91.4 82.9 - [facility] 93.1 [facility] LABORATORY MCH 29.[address] [facility] 32.1 pg [facility] LAB[facility]ORY MCHC 31.8 (L) 32.0 - [facility] 35.7 gm/dL [facility] LABOR[facility]ORY Platelets 204 145 - 357 [facility] x10(3)/[facility] LABORATORY RDWSD 50.5 (H) 36.0 - [facility] 45.0 [facility] RDWCV 15.3 (H) 11.4 - [facility] 13.8 % [facility] LABORATORY MPV 9.4 7.6 - 12.9 [facility] LABORATORY nRBC % Auto 0.0 % [facility] LABORATORY nRBC Abs Auto 0.000 0.000 - [facility] 0.000 [facility] x10(3)/[facility] LABORATORY Specimen Anatomical Collection Method Collection Time Receive d Time (Source) Location / / Volume Laterality Blood specimen 07/29/2017 2:15 PM 018 2:36 (specimen) EST PM EST Resulting Agency Comment Spec In Lab Tamiko Jiménez MD HEMATOLOGY ORDERABLES Performing Organization Address City/State/ZIP Code Phon e Number [address] (ABNORMAL) Prothrombin Time (07/29/2017 2:15 PM EST) P athologist Signature PT 24.4 (H) 11.8 - 14.0 [facility] LABORATORY INR 2.2 (H) 0.9 - 1.1 [facility] [...] Address City/State/ZIP Code Phon e Number [address] Arterial Duplex Leg, Unil (07/29/2017 11:50 AM EST) Component Value Ref Test Analysis Performed At Patholo gist Range Method Time Signature VB Text Department: Vascular Surgery Lab VASCUBASE Report Patient: [id number] (GREGORY FATIMA) CPT: 52444 ICD10: Z09;I97.610 Referring Physician: TAMIKO JIMÉNEZ ?? [...] Value Ref Test Analysis Performed At [facility] Range Method Time Signature VB Text Department: Vascular Surgery Lab VASCUBASE Report Patient: [id number] (GREGORY FATIMA) CPT: 62501 ICD10: I82.441 Referring Physician: TAMIKO JIMÉNEZ ?? [...] he calf. Notification: Marquis Pathak MD (pager #[phone]) was notif ied of the preliminary findings. [...] STAT documented in this encounter Care Teams Fuel Quality Tech Relationship Specialty Start Date End Date Lovely Vicente MD PCP - General 04/16/15 [facility] [address] [place] [address] documented as of this encounter
--- OUTSIDE RECORDS SUMMARY | 2022-02-25 08:16 | XMS_ITS | Encounter Summary ---
:1945 [place] [address] Care Team Providers Name Role Phone Lovely Vicente MD Primary Care Provider Encounter Details Date Type Department Care Team Description 07/16/2017 Telephone Endocrinology at [facility] C Manuela Holliday, [facility] [place] [address] ENDOCRINOLOGY DEPT [phone] [place], [place] [address] (Wo rk) Social History Tobacco [...] MD [facility] [address] [place], [place] [address] ([facility]) 06/10/2022 Office Visit Dermatology Lauar Scherer MD [facility] [address] [place], [place] [address] (Wo ) documented as of this encounter Visit Diagnoses Not on filedocumented in this encounter Care Teams Manager Game Relationship Specialty Start Date End Date Lovely Vicente MD PCP - General 04/16/[address] [place] [address] documented as of this encounter
--- OUTSIDE RECORDS SUMMARY | 2022-02-25 08:16 | XMS_ITS | Encounter Summary ---
:1945 Author Organization [facility] [place] [address] Care Team Providers Name Role Phone Lovely Vicente MD Primary Care Provider Encounter Details Date Type Department Care Team Description 07/24/2017 Telephone Vascular Surgery Melba Bob [facility] [place] [address] [facility] [phone] VASCULAR SURGERY [place], [place] [address] (Wo rk) Social History [...] was discharged on Coumadin. ??He presented [facility]20 with mottled toes on the [...] [facility] ER [address] [place], [place] [address] (Wo rk) 06/10/2022 Office Visit Dermatology Laura Scherer MD [facility] [address] [facility] [facility] [place] [place] [address] (Wo rk) documented as of this encounter Visit Diagnoses Not on filedocumented in this encounter Care Teams Repair Weaver Relationship Specialty Start Date End Date Lovely Vicente MD PCP - General 04/16/[address] [place] [address] (work) documented as of this encounter
--- OUTSIDE RECORDS SUMMARY | 2022-02-25 08:16 | XMS_ITS | Encounter Summary ---
:1945 Author Organization [facility] [place] [address] Care Team Providers Name Role Phone Lovely Vicente MD Primary Care Provider Reason for Visit Reason Onset Date Comments Other 07/22/2017 lovenox bridge Encounter Details Date Type Department Care Team Description 07/22/2017 Telephone Cardiology at [facility] Court Cadena RN Other (lovenox bridge) [place] [address] Social History Tobacco Use Types Packs/Day [...] Cadena RN - 07/22/2017 4:49 PM EST VAMIS Del Castillo, at [facility], called earlier today with a question re: lovenox bridge for this patient who was recently discharged from [facility] r/t a blood clot. Discharge note faxed to [facility] (fax# [phone], Ph#: [phone]) which contains instructions r/t lovenox bridge as follows: Anticoagulation: on lovenox bridge to therapeutic coumadin for AFib. Goal INR 2-3. At discharge INR=1.5. The lovenox injections can stop when INR >2, coumadin will continue indefinitely. documented in this encounter Plan of Treatment Upcoming Encounters Date Type Specialty Care Team Description 03/26/2022 Office Visit Cardiology Vitaliy Nobles MD [facility] [address] [place], [place] [address] (Wo rk) 06/10/2022 Office Visit Dermatology Laura Scherer MD [facility] DR TEJA GR[address] [facility] [place], [place] [address] (Wo rk) documented as of this encounter Visit Diagnoses Not on filedocumented in this encounter Care Teams Foreign Diplomat Relationship Specialty Start Date End Date Lovely Vicente MD PCP - General 04/16/[address] [place] [address] documented as of this encounter
--- OUTSIDE RECORDS SUMMARY | 2022-02-25 08:16 | XMS_ITS | Encounter Summary ---
:1945 [place] [address] Care Team Providers Name Role Phone Lovely Vicente MD Primary Care Provider Reason for Visit Reason Onset Date Comments Questions 07/16/2017 fluid retention Encounter Details Date Type Department Care Team Description 07/16/2017 Telephone Cardiology [place] [facility] Martha Comer, Questions ([facility] RN retention ) [place] [address] Social History Tobacco Use Types Packs/Day [...] the direct number to the HF team ([phone]). She is aware of his appt with [facility] COUNSELOR Hans on 07/21/17 and the need for labs prior to that visit. verbalized good understanding of the current POC. documented in this encounter Plan of Treatment Upcoming Encounters Date Type Specialty Care Team Description 03/26/2022 Office Visit Cardiology Vitaliy Nobles MD [facility] [address] [place], [place] [address] (Wo rk) 06/10/2022 Office Visit Dermatology Laura Scherer MD [facility] [address] [place], [place] [address] (Wo rk) documented as of this encounter Visit Diagnoses Not on filedocumented in this encounter Care Teams Product Accountant Relationship Specialty Start Date End Date Lovely Vicente MD PCP - General 04/16/15 [facility] [address] [place] [address] documented as of this encounter
--- OUTSIDE RECORDS SUMMARY | 2022-02-25 08:16 | XMS_ITS | Encounter Summary ---
:1945 [place] [address] Care Team Providers Name Role Phone Lovely Vicente MD Primary Care Provider Reason for Visit Reason Comments Hospital Transfer cold foot post CABG Auth/Cert Specialty Diagnoses / Procedures Referred By Contact Refer red To Contact Diagnoses Critical lower limb ischemia Procedures NAYE IPI Referral ID Status Reason Start Date Expiration Date Visits Requ ested Visits Authorized [id number] 1 1 Encounter Details Date Type Department Care Team Description 07/20/2017 Hospital Encounter 4 Herminia Ibarra MD [facility] [place] [address] Critical lower limb [facility] Arik Clement MD [facility] [place] [address] [place] [address] Social History Tobacco Use Types Packs/Day Years [...] home. Important Studies and Lab Data: Labs: [facility] Lab Results Component Value Date INR 1.5 [...] For any problems or questions please call [phone] ZELDA Smith, laborer Nurse Clinician For issues on weeknights after 5pm and weekends please call [phone] and ask for the Vascular Fellow learning operations specialist. General Instructions None Future Appointments and Orders Future Appointments Provider Department Dept Phone 08/04/2017 1:00 PM Danilee Mooney [place] [facility] [place] [phone] 08/04/2017 2:15 PM Arik Clement MD Vascular Surgery at [place] [phone] 09/07/2017 3:00 PM MAYRA CHACON Lab [facility] [phone] 09/07/2017 4:00 PM Luz Prescott MD Endocrinology at [place] [phone] Future Orders Complete By Expires Arterial Duplex Leg, Unil [VAS32 Custom] 07/27/2017 (Approximate) 01/26/2018 Process Instructions: There is no in-house vascular laboratory veterinarian available on weeknights (5pm-8am), weekends, or holidays. IF THIS IS A REQUEST FOR AN EMERGENT STUDY DURING THOSE HOURS, please have the senior provider responsible for the patient page the Vascular Surgery Fellow/Senior Resident learning operations specialist to discuss options. Scheduling Instructions: Questions: Indication for study/signs & symptoms: Right femoral PSA s/p cardiac cath Question to be answered: bloodflow to PSA Laterality: Right Is there a RIGHT LOWER EXTREMITY graft?: No Lower limb right segments: Common Femoral Is there a stent?: No At which location will this be performed?: [place] Referral to Home Health - at DISCHARGE [[id number] CPT(R)] As directed Process Instructions: Scheduling Instructions: Comments: DOCUMENTATION FOR VNA SERVICES (INCLUDING THOSE PATIENTS WITH MEDICARE COVERAGE REQUIRING HOME VNA SERVICES AND/OR HOSPICE SERVICES) PATIENT'S LOCATION: Gregory Fatima [address] [place] [address] [place] [phone] (home) Cell: Telephone Information: Metallurgical Technician's Name: self In discussion with the attending physician, it is certified that this patient is under their care and that they, or a Nurse Practitioner,Clinical Nurse specialist or Physician Asphalt Paver who is working directly with them, had [...] CARE AGENCY: [facility] ([facility] [place] [facility]-is in [place]) PHONE: [phone] FAX: [phone] Start of care: 24- 48 hours FOR [...] patient'sPCP: Lovely Vicente MD [address] [facility] [place] [id number] All VNA agencies which cover the area [...] For any problems or questions please call [phone] ZELDA Smith, laborer Nurse Clinician For issues on weeknights after 5pm and weekends please call [phone] and ask for the Vascular Fellow learning operations specialist. documented in this encounter Medications at Time [...] RN - 07/20/2017 2:53 PM EST The patient/digital sales representative has been provided a list of Home Health Agencies/DME vendors which serve their preferred geographic area. A letter describing our affiliations was reviewed with them and theywere educated about their right to choose where referrals are placed. Patient requests referral to [facility]. PHONE: [phone] FAX: [phone]. Expected date of discharge: 07/20/2017 . Referral routed to the Trim Machine Adjuster for matching with agency/vendor and to provide any required information. Naty Pulliam RN - 07/20/2017 11:37 AM EST The patient/digital sales representative has been provided a list of Home Health Agencies/DME vendors which serve their preferred geographic area. A letter describing our affiliations was reviewed with them and theywere educated about their right to choose where referrals are placed. Patient requests referral to [facility] ([facility] [place] [facility]- is in [place] PHONE: [phone] FAX: [phone]. Expected date of discharge: 07/20/2017 . Referral routed to the Trim Machine Adjuster for matching with agency/vendor and to provide any required information. Katina Pulliam RNprosthodontist/educator Janneth Lee MD - 07/20/2017 7:29 AM [...] performed by Manny Mcknight MD at [facility] MAIN OR ??? PRO CABG, ARTERIAL, SINGLE N/A 07/07/2017 @CABG, USING ARTERIAL GRAFT;SINGLE ARTERIAL GRAFT (WRVU 33.75) performed by Yuan Retana MD at [facility] MAIN OR ??? PRO CABG, ARTERY-VEIN, TWO N/A 07/07/2017 @CABG, TWO VENOUS GRAFTS & ARTERIAL GRAFT (WRVU 7.93) performed by Yuan Retana MD at [facility] MAIN OR ??? PRO COLONOSCOPY, REMV LESN, SNARE 01/16/2014 COLONOSCOPY, POLYPECTOMY, REMOVAL LESION BY SNARE performed by Nohemi Jaimes MD at [facility] ENDOSCOPY ??? PRO ENDOSCOPY W/VIDEO-ASST VEIN HARVEST, CABG Right 07/07/2017 ENDOSCOPIC HARVEST VEIN(S) FOR CABG (WRVU 0.31) performed by Yuan Retana MD at [facility] MAIN OR ??? PRO THYROIDECTOMY 03/28/2013 THYROIDECTOMY, TOTAL OR COMPLETE performed by Manny Mcknight MD at [facility] MAIN OR Functional Status/Social Hx: Social [...] -ISS -pain control Discussed with Vascular Fellow learning operations specialist. Chris Valadez MD PGY2 Pager [phone] documented in this encounter ED Notes Annita Reaves MD - 07/20/2017 3:15 PM EST Emergency Department Gregory Fatima is a 72 y.o. 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 History of Present Illness [...] 04/05/2013 Hospitalizations Within the Past 30 Days: [facility] 07/05/17 Anticipated Length Of Stay (If known): [...] Health/Prescription Coverage: Primary Insurance: MEDICARE Secondary Insurance: [employer] [facility] Prescription Coverage: See above Preferred Pharmacy: [facility] Other: N/A Primary Care Provider: Lovely Vicente MD [phone] Patient/Caregiver Goals of Treatment: Patient plans to return home when medically ready Potential Needs for Transition of Care: Rehab/SNF: N/A Home Health: [facility] ([facility] [place] [facility]-is in [place]) PHONE: [phone] FAX: [phone] DME: N/A Dialysis: N/A Community Resources: N/A Transportation: Patient family will transport Other: N/A Anticipated Barriers to Discharge/Special Considerations: None Plan: Patient plans to return home with home health services when medically ready A member of the Care Management team will continue to monitor progress, follow for continuity of care and assist with transition of care planning. Naty Pulliam RN Pager: [phone] ED Triage - Rayna Weir RN - 07/20/2017 12:28 AM EST Pt transferred from [facility] for blue right foot and painful toes. [...] Nobles MD [facility] [address] [place], [place] [address] ([facility]) 06/10/2022 Office Visit Dermatology Laura Scherer MD [facility] DR TEJA GR-DERMAT OLOGY [place], [place] [address] ([facility]) documented as of this encounter Procedures Procedure Name Priority Date/Time Associated Comments Diagnosis WAREHOUSE GENERAL LABORER SCAN 09/02/2017 12:00 Res ults for this [...] TO LAB EST procedure are i n ([facility] the results section. APTT STAT 07/20/2017 2:25 AM Results f or this EST procedure are i n the results section. PROTHROMBIN TIME STAT 07/20/2017 2:25 AM Resul ts for this EST procedure are i n the results section. BASIC METABOLIC PANEL STAT 07/20/2017 2:25 AM Results for this (NON-FASTING) EST procedure are in the results section. documented in this encounter Results SCAN DOC: WAREHOUSE GENERAL LABORER (09/02/2017 12:00 AM EST) Narrative 09/02/2017 12:00 AM EST This result has an attachment that is no t available. Ordered by an unspecified provider. Scanning Provider MEDIA MGR SCAN EXT ORDR/RSLT POCT Glucose (07/20/2017 12:04 PM EST) P athologist Signature POC Glucose 189 65 - 199 [facility] mg/dL [facility] Comment: Supplemental ranges: <140 mg/dL before meals <180 mg/dL all other times of the day Specimen Anatomical Collection Method Collection Time Receive d Time (Source) Location / / Volume Laterality Blood specimen 07/20/2017 12:04 7 (specimen) PM EST 12:04 PM EST Arik Clement MD POINT OF CARE TEST ORDERABLE S Performing Organization Address City/State/ZIP Code Phon e Number [address] (ABNORMAL) Differential, Automated (07/20/2017 10:34 AM EST) [facility] Method Time Signature Neutrophils % 84.3 % [facility] LABORATORY Neutr Abs (ANC) 14.27 (H) 1.70 - [facility] 6.10 [facility] x10(3)/[facility] LABORATORY Lymphocytes % 5.6 % [facility] LABORATORY Lymphocytes Abs 1.0 0.9 - 3.2 [facility] x10(3)/[facility] LABORATORY Monocytes % 6.1 % [facility] LABORATORY Monocyte Abs 1.0 (H) 0.3 - 0.9 [facility] x10(3)/[facility] LABORATORY Eosinophils % 2.4 % [facility] LABORATORY Eosinophils Abs 0.4 0.0 - 0.4 [facility] x10(3)/[facility] LABORATORY Basophils % 0.5 % [facility] LABORATORY Basophils Abs 0.1 0.0 - 0.1 [facility] x10(3)/[facility] LABORATORY Immature Gran % 1.10 % [facility] Comment: Immature granulocytes(IG's)percentage an d absolute count will include metamyelocytes, myelocytes, and promyelo cytes. Blood smears from CBCs yielding IG's will be scanned manually for concor dance. If this scan disagrees with the automated IG or if promyelocytes are not ed, a manual differential will be performed. Melisa Gran Abs 0.19 (H) 0.00 - 0.04 x10(3)/[facility] LABORATORY Specimen Anatomical Collection Method Collection Time Receive d Time (Source) Location / / Volume Laterality Blood specimen 07/20/2017 10:34 7 (specimen) AM EST 10:39 AM EST Resulting Agency Comment Spec In Lab Arik Clement MD HEMATOLOGY ORDERABLES Performing Organization Address City/[facility]/ZIP [place] [address] (ABNORMAL) Hemogram (07/20/2017 10:34 AM EST) Analysis Performed At Patho logist Time Signature WBC 17.0 (H) 4.0 - 9.5 [facility] x10(3)/[facility] LABORATORY RBC 3.70 (L) 4.58 - [facility] 5.54 [facility] x10(6)/[facility] LABORATORY Hemoglobin 10.8 (L) 13.7 - [facility] 16.5 gm/dL [facility] Hematocrit 33.4 (L) 40.5 - [facility] 48.5 % [facility] MCV 90.3 82.9 - [facility] 93.1 [facility] LABORATORY MCH 29.2 27.5 - [facility] 32.1 pg [facility] MCHC 32.3 32.0 - [facility] 35.7 gm/dL [facility] Platelets 211 145 - 357 [facility] x10(3)/[facility] LABORATORY RDWSD 49.1 (H) 36.0 - [facility] 45.0 [facility] LABORATORY RDWCV 14.7 (H) 11.4 - [facility] 13.8 % [facility] MPV 9.2 7.6 - 12.9 [facility] LABORATORY nRBC % Auto 0.0 % [facility] LABORATORY nRBC Abs Auto 0.000 0.000 - [facility] 0.000 [facility] x10(3)/[facility] LABORATORY Specimen Anatomical Collection Method Collection Time Receive d Time (Source) Location / / Volume Laterality Blood specimen 07/20/2017 10:34 7 (specimen) AM EST 10:39 AM EST Resulting Agency Comment Spec In Lab Arik Clement MD HEMATOLOGY ORDERABLES Performing Organization Address City/State/[place] [address] (ABNORMAL) APTT (07/20/2017 10:34 AM EST) P athologist Signature PTT 79 (H) 25 - 35 sec [facility] Comment: The recommended therapeutic range for fu ll dose, unfractionated heparin at [facility] is 80 ? 114 seconds. The use [...] Clement MD HEMATOLOGY ORDERABLES Performing Organization Address City/[facility]/ZIP Code Phon e Number [address] POCT Glucose (07/20/2017 7:41 AM EST) P athologist Signature POC Glucose 174 65 - 199 [facility] mg/dL [facility] Comment: Supplemental ranges: <140 mg/dL before meals <180 mg/dL all other times of the day Specimen Anatomical Collection Method Collection Time Receive d Time (Source) Location / / Volume Laterality Blood specimen 07/20/2017 7:41 AM 017 7:41 (specimen) EST AM EST Arik Clement MD POINT OF CARE TEST ORDERABLE S Performing Organization Address City/State/ZIP Code Phon e Number [address] JULIAN, legs, multiple levels (07/20/2017 7:33 AM EST) Component Value Ref Test Analysis Performed At Patholo gist Range Method Time Signature VB Text Department: Vascular Surgery Lab VASCUBASE Report Patient: [id number] (GREGORY FATIMA) CPT: 82826 ICD10: I75.021;I99.8 Referring Physician: ARIK CLEMENT ?? [...] Test Analysis Performed At [facility] Range Method Time Signature VB Text Department: Vascular Surgery Lab VASCUBASE Report Patient: [id number] (GREGORY FATIMA) CPT: 02998 ICD10: I97.610;I99.8 Referring Physician: ARIK CLEMENT ?? [...] Glucose 199 65 - 199 [facility] mg/dL [facility] Comment: Supplemental ranges: <140 mg/dL before meals <180 mg/dL all other times of the day Specimen Anatomical Collection Method Collection Time Receive d Time (Source) Location / / Volume Laterality Blood specimen 07/20/2017 3:41 AM 017 3:41 (specimen) EST AM EST Arik Clement MD POINT OF CARE TEST ORDERABLE S Performing Organization Address City/State/[place] [address] Lactate, whole blood, send to lab (Leb/CGP) (07/20/2017 2:25 AM EST) athologist Signature Lactate WB 2.0 0.5 - 2.2 [facility] mmol/L [facility] Specimen Anatomical Collection Method Collection Time Receive d Time (Source) Location / / Volume Laterality Blood specimen Venous Draw / 07/20/2017 2:25 AM 2016 2:37 (specimen) Unknown EST AM EST Resulting Agency Comment Spec In Lab Zulma Samuel MD CHEMISTRY ORDERABLES Performing Organization Address City/State/ZIP [place] [address] (ABNORMAL) APTT (07/20/2017 2:25 AM EST) P athologist Signature PTT 36 (H) 25 - 35 sec [facility] Comment: The recommended therapeutic range for fu ll dose, unfractionated heparin at [facility] is 80 ? 114 seconds. The use [...] Organization Address City/State/ZIP [place] [address] (ABNORMAL) Prothrombin Time (07/20/2017 2:25 AM EST) P athologist Signature PT 17.7 (H) 11.8 - 14.0 [facility] [...] Volume Laterality Blood specimen 07/20/2017 2:25 AM 12/26/2 017 2:33 (specimen) EST AM EST Resulting Agency Comment Spec In Lab Annita Reaves MD HEMATOLOGY ORDERABLES Performing Organization Address City/State/[place] [address] (ABNORMAL) Basic Metabolic Panel (non-fasting) (07/20/2017 2:25 AM EST) athologist Signature Glucose Lvl 187 65 - 199 [facility] mg/dL [facility] Comment: Diabetes: >=200 mg/dL plus symp toms BUN 35 (H) 10 - 20 mg/dL [facility] Creatinine 1.51 (H) 0.80 - 1.50 mg/dL [facility] Sodium 134 (L) 135 - 145 mmol/L [facility] Potassium Not Perf 3.5 - 5.0 mmol/L [facility] Comment: Specimen hemolyzed. Called by: [facility], Read back by: Chitra Orantes, Date/Time:07/20/17 03:05. Please note: ??Patients with WBC >100,00 0 may have falsely elevated Potassium levels. ??For accurate Potassium quantif ication in these patients send serum separator tube (gold top) for subsequent determinations. ??Contact the Clinical Chemistry Laboratory if there are any qu estions. Chloride 92 (L) 98 - 107 mmol/L [facility] CO2 29 22 - 31 mmol/L [facility] Anion Gap 13 5 - 15 mmol/L [facility] Calcium 8.6 8.5 - 10.5 mg/dL [facility] Estimated GFR 46 (L) >=60 [facility] Comment: The reported eGFR should be multiplied b y 1.2 for patients. The MDRD is not an appropriate measure o f renal function for patients with body mass extremes or in patients with acute kidney failure. http://[employer]/DHnkdep http://[employer]/DHMCnkf Specimen Anatomical Collection Method Collection Time Receive d Time (Source) Location / / Volume Laterality Blood specimen 07/20/2017 2:25 AM 017 2:33 (specimen) EST AM EST Resulting Agency Comment Spec In Lab Annita Reaves MD CHEMISTRY ORDERABLES Performing Organization Address City/State/ZIP Code [place] [address] documented in this encounter [...] ing Wed07/20/17 at 0424, Until Wed07/20/17 at 171, Pain, Maximum dose of acetaminophen is 4000 mg from all sources in 24 hours., Routine dextrose 50% IV syringe 25-50 mL(Linked Group 3) 25-50 mL (12.5-25 g), Intravenous, EVERY 1 HOUR PRN, Starting Wed07/20/17 at 0424, Until Wed07/20/17 at 171, Low blood sugar, For BG 50-70: 120 [...] tarting Wed07/20/17 at 0424, Until Wed07/20/17 at 1715, Low blood sugar, For BG 50-70: 120 [...] Group 2) 0-8,000 Units, Intravenous, BOLUS PER [facility] PROTOCOL, Starting Wed07/20/17 at 0424, Until Wed07/20/17 [...] mg 0524 (Given - Provider: Ines Cantu, RN)1020 (Given - Provider: Laura Vega RN) [...] Starting Wed07/20/17 at 0424, Until Wed07/20/17 at 1715, Low blood sugar
For BG 50- 70: [...] tarting Wed07/20/17 at 0424, Until Wed07/20/17 at 1715, Low blood sugar
For BG 50-70: 120 [...]
Routine documented in this encounter Care Teams Stonework Supervisor Relationship Specialty Start Date End Date Lovely Vicente MD PCP - General 04/16/[address] [place] [address] documented as of this encounter
--- OUTSIDE RECORDS SUMMARY | 2022-02-25 08:16 | XMS_ITS | Encounter Summary ---
:1945 Author Organization [facility] [place] [address] Care Team Providers Name Role Phone Lovely Vicente MD Primary Care Provider Reason for Visit Reason Comments Foot Pain Auth/Cert Specialty Diagnoses / Procedures Referred By Contact Refer red To Contact Diagnoses Ischemic foot Procedures NAYE OBSVO Referral ID Status Reason Start Date Expiration Date Visits Requ ested Visits Authorized [id number] 1 1 Encounter Details Date Type Department Care Team Description 07/27/2017 Emergency 1 [facility] Lokesh Swenson MD [address] [place] [address] Femoral artery pseudo-aneurysm, right; [facility] Tam Bauman MD [address] [facility] [place] [address] [place] [address] Social History Tobacco Use Types Packs/Day [...] Gregory Fatima Patient Age: 72 y.o. Language: Marshallese Race: White Ethnicity: Not nor Admit date: [...] please contact your inpatient physician through the [facility] Teacher Aide . Issues after hours and on weekends [...] RLE critical limb ischemia, who presented to [facility] with worsening RLE pain. Pt post-op course after CABG was significant for paroxysmal Afib, and he was started on Coumadin given elevated [id number] score. 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 [...] in the last 7068 hours. Invalid input(s): [id number] Recent Labs 07/08/17 0400 07/07/17 0515 07/06/17 [...] for comparison. ?? AVELINO 07/08/2017: 1. Intraoperative AVELNIO performed at the request of Dr. Mike [...] (it was low at 1.6 here at [facility]) 7. Use the tramadol if dilaudid or tylenol is not working 8. Stop taking the potassium supplement - your blood potassium level was elevated. Ask your doctors at future visits if this should be restarted. 9. Antibiotic for 5 days recommended by cardiothoracic surgery for chest wound drainage Follow-Up Appointments Vascular surgery as previously schedule Your Inpatient Doctor(s) at [facility]: CARLOS ALBERTO ROSALES MD General Instructions None Future Appointments and Orders Future Appointments Provider Department Dept Phone 07/30/2017 8:30 AM OSWALDO, THREE L Lab 3L [facility] [phone] 07/30/2017 9:40 AM Danette Maxwell APRN Cardiology at [place] [phone] 08/04/2017 1:00 PM Daniele Mooney [place] Vascular Lab at [place] [phone] 08/04/2017 2:15 PM Arik Clement MD Vascular Surgery at [place] [phone] 08/11/2017 10:00 AM [facility] ROOM 2 XRay at [place] [phone] Please go to Superintendent Of Generation Area 3T ([facility] Location). 08/11/2017 11:00 AM Yuan Retana MD Cardiac Surgery at [facility] [phone] 09/07/2017 3:00 PM LAB, THREE L Lab 3L [facility] [phone] 09/07/2017 4:00 PM Luz Prescott MD Endocrinology at [facility] [phone] Discharge References/Attachments None documented in this encounter [...] (it was low at 1.6 here at [facility]) 3. Use the tramadol if dilaudid or tylenol is not working 4. Stop taking the potassium supplement - your blood potassium level was elevated. Ask your doctors at future visits if this should be restarted. 5. Antibiotic for 5 days recommended by cardiothoracic surgery for chest wound drainage Follow-Up Appointments Vascular surgery as previously schedule Your Inpatient Doctor(s) at [facility]: CARLOS ALBERTO ROSALES MD documented in this [...] as of this encounter Progress Notes Isidro Loepz PA - 07/27/2017 3:07 PM EST Cardiac [...] Gas) No results found for: PHART, PO2ART, FAL2GKF Assessment/Plan: 72 y.o. male s/p CABG in [...] intervention: Education Nutrition Recommendations: Recommend continuation of [facility], CHO2 diet order Patient and denied need [...] Orders Diet Daily Healthy Menu Choices/Cardiac diet ([facility]-Diet) 60/ CHO counting level 2 Frequency: Effective Now Number of Occurrences: Until Specified Admit Weight: 83.92 kg Estimated body mass index is 28.13 kg/(m^2) as calculated from the following: Height as of this encounter: 172.7 cm (5' 8). Weight as of this encounter: 83.9 kg (185 lb). [facility] body weight: 68.4 kg (150 lb 12.7 [...] RLE critical limb ischemia, who presented to [facility] with worsening RLE pain. Visited with patient [...] spent >30 minutes (Day of Discharge Code 14510) involved in the final examination of the [...] Melanoma ID: 72 y.o. Male presents to [facility] with persistent pain b/l lower extremities History of Present Illness: HPI 72 y.o. male with PMH ASCVD s/p CABG (07/07/17), MARIA VICTORIA on CPAP QHS, HTN, HLD, DM2, with recent hospitalization for RLE critical limb ischemia, who presented to [facility] with worsening RLE pain. Pt post-op course after CABG was significant for paroxysmal Afib, and he was started on Coumadin given elevated [id number] score. 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 [...] MD at [facility] ENDOSCOPY ??? PRO ENDOSCOPY W/VIDEO-ASST VEIN HARVEST, CABG Right 07/07/2017 ENDOSCOPIC HARVEST VEIN(S) FOR CABG (WRVU 0.31) performed by Yuan Retana MD at [facility] MA[facility] OR ??? PRO THYROIDECTOMY 03/28/2013 THYROIDECTOMY, TOTAL OR COMPLETE performed by Manny Mcknight MD at [facility] OR Prior To Admission Medications: [...] Procedure Component Value Units Date/Time Blood culture [[id number]] Collected: 07/09/1739 Lab Status: Final result Specimen: Blood from Arm, Right Updated: 07/14/17701 Blood Culture No growth at 5 days. Blood culture [[id number]] Collected: 07/09/170 Lab Status: Final result Specimen: [...] limb ischemia following CABG, who presented to [facility] ED from home with persistent B/L LE [...] continued Diet Daily Healthy Menu Choices/Cardiac diet ([facility]-Diet) 60/60/75 CHO counting level 2Cardiac, low salt, CHO 2 Discharge planning Pending improvement in pain control PT/OT/Speech PT ordered Lines/Access PIV Ocasio catheter No DVT/GI Prophylaxis Lovenox bridge to Coumadin, SCD. Code status Full Code Family PCP Lovely Vicente MD [phone] Attestation Please see my note for details [...] encounter Miscellaneous Notes Plan of Care - Wallis-Joyce Damian, PT - 07/27/2017 3:26 PM EST [...] Anticipated Discharge Disposition: home with assist Pager: [phone] JOYCE KING, PT Inpatient Physical Therapy 2017 [...] patient's evaluation including the following functional test(s) [facility]. Current ability measures, co-morbidities and clinical judgement [...] a lovenox bridge. Mr. Fatima returns to [facility] ED tonight because of ongoing pain in [...] MD at [facility] END[facility] ??? PRO ENDOSCOPY W/VIDEO-ASST VEIN HARVEST, CABG Right 07/07/2017 ENDOSCOPIC HARVEST VEIN(S) FOR CABG (WRVU 0.31) performed by Yuan Retana MD at [facility] MA[facility] OR ??? PRO THYROIDECTOMY 03/28/2013 THYROIDECTOMY, TOTAL OR COMPLETE performed by Manny Mcknight MD at [facility] MA[facility] OR MEDICATIONS: No current facility-administered [...] up in clinic 1-2 weeks after discharge. [facility] Vascular Surgery Plan of Care [...] [facility] CARDIOLOGY [place], [place] [address] (Wo rk) 06/10/2022 Office Visit Dermatology Laura Scherer MD [facility] [address] [place], [place] [address] (Wo rk) documented as of this [...] section. TYPE AND SCREEN STAT 07/27/2017 12:53 ([facility]/CGP/SHANDA) AM EST BASIC METABOLIC PANEL STAT 07/27/2017 12:53 Re sults for this (NON-FASTING) AM EST procedure are in the results section. documented in this encounter Results POCT Glucose (07/27/2017 11:53 AM EST) P athologist Signature POC Glucose 175 65 - 199 [facility] mg/dL [facility] Comment: Supplemental ranges: <140 mg/dL before meals <180 mg/dL all other times of the day Specimen Anatomical Collection Method Collection Time Receive d Time (Source) Location / / Volume Laterality Blood specimen 07/27/2017 11:53 8 (specimen) AM EST 11:53 AM EST Tam Bauman MD POINT OF CARE TEST ORDERABLE S Performing Organization Address City/State/[place] [address] Arterial Duplex Leg, Unil (07/27/2017 7:40 AM EST) Component Value Ref Test Analysis Performed At Patholo gist Range Method Time Signature VB Text Department: Vascular Surgery Lab VASCUBASE Report Patient: [id number] (GREGORY FATIMA) CPT: 84098 ICD10: I97.610;I72.4;Z09 Referring Physician: TAM BAUMAN ?? [...] Bauman MD VASCULAR ORDERABLES Performing Organization Address City/[facility]/ZIP Code Phon e Number VASCUBASE POCT Glucose (07/27/2017 6:51 AM EST) P athologist Signature POC Glucose 96 65 - 199 [facility] mg/dL [facility] Comment: Supplemental ranges: <140 mg/dL before meals <180 mg/dL all other times of the day Specimen Anatomical Collection Method Collection Time Receive d Time (Source) Location / / Volume Laterality Blood specimen 07/27/2017 6:51 AM 018 6:51 (specimen) EST AM EST Tam Bauman MD POINT OF CARE TEST ORDERABLE S Performing Organization Address City/[facility]/ZIP Code Phon e Number [address] ABORH Recheck Status (07/27/2017 12:53 AM EST) Patholo gist Method Time Signature ABORH Type Completed [facility] [place] [facility] LABORATORY Specimen Anatomical Collection Method Collection Time Receive d Time (Source) Location / / Volume Laterality Blood specimen 07/27/2017 12:53 8 (specimen) AM EST 12:58 AM EST Resulting Agency Comment Spec In Lab Angela Swenson MD BLOOD BANK ORDERABLES Performing Organization Address City/[facility]/ZIP Code Phon e Number [address] Gold Tube HOLD (07/27/2017 12:53 AM EST) P athologist Signature Gold Hold Sample in [facility] LABORATORY Specimen Anatomical Collection Method Collection Time Receive d Time (Source) Location / / Volume Laterality Blood specimen Venous Draw / 07/27/2017 12:53 07/27/19 18 1:01 (specimen) Unknown AM EST AM EST Angela Swenson MD CHEMISTRY ORDERABLES Performing Organization Address City/[facility]/ZIP Code Phon e Number [place] [id number] (ABNORMAL) Differential, Automated (07/27/2017 12:53 AM EST) [facility] Method Time Signature Neutrophils % 75.0 % [facility]ORY Neutr Abs (ANC) 11.30 (H) 1.70 - [facility] 6.10 [facility] x10(3)/[facility] LABORATORY Lymphocytes % 9.9 % [facility] Lymphocytes Abs 1.5 0.9 - 3.2 [facility] x10(3)/[facility] LABORATORY Monocytes % 8.6 % [facility]ORY Monocyte Abs 1.3 (H) 0.3 - 0.9 [facility] x10(3)/[facility] LABORATORY Eosinophils % 4.8 % [facility] Eosinophils Abs 0.7 (H) 0.0 - 0.4 [facility] x10(3)/[facility] LABORATORY Basophils % 0.8 % [facility] Basophils Abs 0.1 0.0 - 0.1 [facility] x10(3)/[facility] LABORATORY Immature Gran % 0.90 % [facility] Comment: Immature granulocytes(IG's)percentage an d absolute count will include metamyelocytes, myelocytes, and promyelo cytes. Blood smears from CBCs yielding IG's will be scanned manually for concor dance. If this scan disagrees with the automated IG or if promyelocytes are not ed, a manual differential will be performed. Melisa Gran Abs 0.13 (H) 0.00 - 0.04 x10(3)/[facility] LABORATORY Specimen Anatomical Collection Method Collection Time Receive d Time (Source) Location / / Volume Laterality Blood specimen 07/27/2017 12:53 8 1:00 (specimen) AM EST AM EST Resulting Agency Comment Spec In Lab Angela Swenson MD HEMATOLOGY ORDERABLES Performing Organization Address City/State/ZIP Code Phon e Number [place] [id number] (ABNORMAL) Hemogram (07/27/2017 12:53 AM EST) Analysis Performed At Patho logist Time Signature WBC 15.0 (H) 4.0 - 9.5 [facility] x10(3)/[facility] LABORATORY RBC 3.59 (L) 4.58 - [facility] 5.54 [facility] x10(6)/[facility] LABORATORY Hemoglobin 10.3 (L) 13.7 - [facility] 16.5 gm/dL [facility] Hematocrit 32.6 (L) 40.5 - [facility] 48.5 % [facility] MCV 90.8 82.9 - [facility] 93.1 [facility] LABORATORY MCH 28.7 27.5 - [facility] 32.1 pg [facility] MCHC 31.6 (L) 32.0 - [facility] 35.7 gm/dL [facility] Platelets 322 145 - 357 [facility] x10(3)/[facility] LABORATORY RDWSD 48.7 (H) 36.0 - [facility] 45.0 [facility] LABORATORY RDWCV 14.7 (H) 11.4 - [facility] 13.8 % [facility] MPV 8.9 7.6 - 12.9 [facility] LABORATORY nRBC % Auto 0.0 % [facility]ATORY nRBC Abs Auto 0.000 0.000 - [facility] 0.000 [facility] x10(3)/[facility] LABORATORY Specimen Anatomical Collection Method Collection Time Receive d Time (Source) Location / / Volume Laterality Blood specimen 07/27/2017 12:53 8 1:00 (specimen) AM EST AM EST Resulting Agency Comment Spec In Lab Angela Swenson MD HEMATOLOGY ORDERABLES Performing Organization Address City/State/[place] [address] Antibody screen (07/27/2017 12:53 AM EST) Patholo gist Method Time Signature Ab Screen Negative [facility] LABORATORY Expires at 07/30/2017 KATALINA DAVIS [id number] on: [facility] Specimen Anatomical Collection Method Collection Time Receive d Time (Source) Location / / Volume Laterality Blood specimen 07/27/2017 12:53 8 (specimen) AM EST 12:58 AM EST Resulting Agency Comment Spec In Lab Angela Swenson MD BLOOD BANK ORDERABLES Performing Organization Address City/[facility]/[place] [address] ABO/Rh Typing (07/27/2017 12:53 AM EST) P athologist Signature ABORh Type O Pos [facility] Specimen Anatomical Collection Method Collection Time Receive d Time (Source) Location / / Volume Laterality Blood specimen 07/27/2017 12:53 8 (specimen) AM EST 12:58 AM EST Resulting Agency Comment Spec In Lab Angela Swenson MD BLOOD BANK ORDERABLES Performing Organization Address [facility] [place] [address] (ABNORMAL) Prothrombin Time (07/27/2017 12:53 AM EST) P athologist Signature PT 19.1 (H) 11.8 - 14.0 [facility] [...] Swenson MD HEMATOLOGY ORDERABLES Performing Organization Address [facility] [place] [address] (ABNORMAL) Basic Metabolic Panel (non-fasting) (07/27/2017 12:53 AM EST) P athologist Signature Glucose Lvl 95 65 - 199 [facility] mg/dL [facility] Comment: Diabetes: >=200 mg/dL plus symp toms BUN 37 (H) 10 - 20 mg/dL [facility] Creatinine 1.49 0.80 - 1.50 mg/dL [facility] Sodium 137 135 - 145 mmol/L [facility] Potassium 5.1 (H) 3.5 - 5.0 mmol/L [facility] Estimated GFR 46 (L) >=60 [facility] Comment: The reported eGFR should be multiplied b y 1.2 for patients. The MDRD is not an appropriate measure o f renal function for patients with body mass extremes or in patients with acute kidney failure. 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
For BG [...]
Routine documented in this encounter Care Teams Athletic Equipment Manager Relationship Specialty Start Date End Date Lovely Vicente MD PCP - General 04/16/15 [facility] [address] [place] [address] documented as of this encounter
--- OUTSIDE RECORDS SUMMARY | 2022-02-25 08:17 | XMS_ITS | Encounter Summary ---
:1945 Author Organization [facility] [place] [address] Care Team Providers Name Role Phone Lovely Vicente MD Primary Care Provider Reason for Referral Consultation (Routine) - Closed Specialty Diagnoses / Referred By Contact Referred To Contact Procedures Cardiac Rehabilitation Diagnoses S/P CABG x 3 Yuan Webber, Cardiac Rehab, [address] [place] CARDIOTHORACIC [address] [place] [address] Referral ID Status Reason Start Date Expiration Date Visits V isits Requested Authorized [id number] Closed Consult, 07/14/2017 01/10/2018 36 36 Test & Treat Reason for Visit Auth/Cert Specialty Diagnoses / Procedures Referred By Contact Refer red To Contact Diagnoses STEMI (ST elevation myocardial infarction) NSTEMI STEMI Procedures CARDIAC CATHETERIZATION NAYE IPI Referral ID Status Reason Start Date Expiration Date Visits Requ ested Visits Authorized [id number] 1 1 Encounter Details Date Type Department Care Team Description 07/05/2017 - Hospital Encounter Cardiac Special Daphne Shahid MD [facility] [address] Non-ST elevation myocardial infarction ( NSTEMI); 07/14/2017 Care Unit Yuan Preciado MD [facility] [place] [address] S/P CABG x 3 [place] [id number] Social History Tobacco Use Types Packs/Day Years [...] Patient Age: 72 y.o. Birthdate: 1945 Language: Malagasy Race: White Ethnicity: Not nor Admit Date: [...] , @ 1:20p Patient to follow-up with Chemicals Distiller/heart failure team in one week. An appointment will be made for you. You may call [phone] Patient to follow-up with Cardiac Surgery, Dr. Yuan Webber, in ~ 4 weeks with CXR, EKG. Inpatient Provider Contact Information: [facility] Section of Cardiac Surgery [facility] [address] FAX [phone] Discharge Diagnoses (Hospital Problems) Primary Diagnoses: CAD [...] SETUP performed by Manny Mcknight MD at [facility] MAIN OR ??? PRO CABG, ARTERIAL, SINGLE N/A 07/07/2017 @CABG, USING ARTERIAL GRAFT;SINGLE ARTERIAL GRAFT (WRVU 33.75) performed by Yuan Webber MD at [facility] MAIN OR ??? PRO CABG, ARTERY-VEIN, TWO N/A 07/07/2017 @CABG, TWO VENOUS GRAFTS & ARTERIAL GRAFT (WRVU 7.93) performed by Yuan Webber MD at [facility] MAIN OR ??? PRO COLONOSCOPY, REMV LESN, SNARE 01/16/2014 COLONOSCOPY, POLYPECTOMY, REMOVAL LESION BY SNARE performed by Nohemi Jaimes MD at [facility] ENDOSCOPY ??? PRO ENDOSCOPY W/VIDEO-ASST VEIN HARVEST, CABG Right 07/07/2017 ENDOSCOPIC HARVEST VEIN(S) FOR CABG (WRVU 0.31) performed by Yuan Webber MD at [facility] MAIN OR ??? PRO THYROIDECTOMY 03/28/2013 THYROIDECTOMY, TOTAL OR COMPLETE performed by Manny Mcknight MD at [facility] MAIN OR Prior To Admission Medications Prescriptions Prior to Admission Medication Sig Dispense Refill Last Dose ??? levothyroxine (SYNTHROID) 175 mcg Tablet Take 1 tablet by mouth daily. 90 tablet 3 07/05/2017 [id number] ??? ascorbic acid, vitamin C, (VITAMIN C) [...] hospital and ruled infor non-ST segment elevation [place]. This almost certainly represents the residual of [...] Hospital Course: Gregory Hoang was admitted to [facility] on 07/05/2017 via the Cardiology Service. During his hospital course, he was taken emergently to the asset availability leader for an ongoing STEMI. An IABP was [...] not take or discontinue any prescription or yafj-xlg-raioyla medications without asking your doctor or pharmacist [...] Yuan Webber and/or the Cardiac Surgery Physician Convention Planner Team may be reached at . Weight: [...] Yuan Webber. You may use a [place] Track or treadmill but avoid any pulling [...] friends, go to a movie, go to mormonism, etc. Heavy activities: No hunting, skiing, jogging, snow shoveling, snowmobiling, lawn mowing, swimming, golf or tennis until after your return appointment with the surgeon. Do not ride motorcycles, [employer]'s tractors or horses. Avoid the use of [...] , @ 1:20p Patient to follow-up with Chemicals Distiller/heart failure team in one week. Appointment will be made for you. You may call [phone] Patient to follow-up with Cardiac Surgery, Dr. Yuan Webber, in ~ 4 weeks with CXR, EKG. Cardiac Rehabilitation: Gregory Hoang was seen today regarding participation in the outpatient Phase 2 Cardiac Rehabilitation at [facility]. The patient agrees to a referral to this program. The referral will be sent at discharge and the patient should be contacted by the Program within 1- 2 weeks from discharge. ?? Future Appointments and Orders Future Appointments Provider Department Dept Phone 09/07/2017 3:00 PM LAB, THREE L Lab 3L [facility] [phone] 09/07/2017 4:00 PM Luz Prescott MD [facility]ocrin[facility] at [facility] [phone] Future Orders Complete By Expires EKG 12 Lead [EKG1 Custom] 08/14/2017 02/13/2018 Process Instructions: Scheduling Instructions: Questions: Which location will this be performed?: [facility] Is a rhythm strip needed?: No If EKG Reason is Pre-op Evaluation, indicate diagnosis for surgery.: XR Chest PA & Lateral (Generic) [[id number] Custom] 08/14/2017 02/13/2018 Process Instructions: Scheduling Instructions: Questions: Where will study be performed?: [facility] Portable exam?: Reason for exam and clinical history: CABG x 3 Other pertinent information: Stat read required?: Date of injury if applicable: Requested Time: Referral to Cardiac Rehab [[id number] Custom] As directed Process Instructions: If no progress note charted, please enter Clinical details in comments. Scheduling Instructions: Questions: My question or request is: s/p CABG. Cardiac rehab at [facility] Referral to Home Health - at DISCHARGE [GDT9114 CPT(R)] As directed Process Instructions: Scheduling Instructions: Comments: DOCUMENTATION FOR VNA SERVICES (INCLUDING THOSE PATIENTS WITH MEDICARE COVERAGE REQUIRING HOME VNA SERVICES AND/OR HOSPICE SERVICES) PATIENT'S LOCATION: Gregory Hoang [address] [place] [address] [place] [id number] (home) Telephone Information: Electrical Tryout Person's Name: self In discussion with the attending physician, it is certified that this patient is under their care and that they, or a Nurse Practitioner, or Physician Convention Planner who is working directly with them, had [...] HEALTH AGENCY: [facility] ([facility] [place] [facility] in [place] PHONE: [phone] FAX: [phone] RN orders: Cardiopulmonary assessment, incisional assessment, assess vital signs, assessment of rehab progress, medication management and effectiveness, home safety evaluation. Please draw INR if indicated and send result to:Dr Vicente [phone] PT ORDERS: Continue rehab for endurance, gait stability and strength with mobility and transfers. Home safety evaluation. Home exercise program if appropriate. Start of Care Date:24-48 hours after discharge SPECIAL INSTRUCTIONS: For any follow up questions, needs, or issues please call the Cardiac Surgery Office at [phone] FOR MEDICARE ONLY: (please delete this section [...] [facility] [address] FAX [phone] Date: 07/14/2017 CC: MD Ivania Cr Betsy, PA [address] [place] [phone] documented in this encounter Discharge Instructions Discharge [...] not take or discontinue any prescription or jeuo-kyi-fpulgyg medications without asking your doctor or pharmacist [...] juice or regular (not diet) soda 6 [employer] small box of raisins 4 glucose tablets [...] Yuan Webber and/or the Cardiac Surgery Physician Convention Planner Team may be reached at . ?? [...] Yuan Webber. You may use a [place] Track or treadmill but avoid any pulling [...] friends, go to a movie, go to mormonism, etc. ?? Heavy activities: No hunting, skiing, jogging, snow shoveling, snowmobiling, lawn mowing, swimming, golf or tennis until after your return appointment with the surgeon. Do not ride motorcycles, [employer] tractors or horses. Avoid the use of [...] @ 1:20p ?? Patient to follow-up with Chemicals Distiller/heart failure team in one week. An appointment has been made for you, you can call [phone] ?? Patient to follow-up with Cardiac Surgery, Dr. Yuan Webber, in ~ 4 weeks with CXR, EKG. ? Cardiac Rehabilitation: Gregory Hoang??was seen today regarding participation in the outpatient Phase 2 Cardiac Rehabilitation at [facility]. ?? The patient agrees to a referral to this program.? The referral will be sent at discharge and the patient should be contacted by the Program within 1- 2 weeks from discharge. ? Future Appointments and Orders Future Appointments Provider Department Dept Phone ?? 09/07/2017 3:00 PM LAB, THREE L Lab 3L [facility] [phone] ?? 09/07/2017 4:00 PM Luz Prescott MD Endocrinology at [facility] [phone] Future Orders Complete By Expires ?? EKG 12 Lead [EKG1 Custom] 08/14/2017 02/13/2018 ?? Process Instructions: ? Scheduling Instructions: ? Questions: ? Which location will this be performed?: [facility] ?? Is a rhythm strip needed?: No ?? If EKG Reason is Pre-op Evaluation, indicate diagnosis for surgery.: ?? XR Chest PA & Lateral (Generic) [[id number] Custom] 08/14/2017 02/13/2018 ?? Process Instructions: ? Scheduling Instructions: ? Questions: ? Where will study be performed?: [facility] ?? Portable exam?: ?? Reason for exam and clinical history: CABG x 3 ?? Other pertinent information: ?? Stat read required?: ?? Date of injury if applicable: ?? Requested Time: ?? Referral to Cardiac Rehab [SAU000 Custom] As directed ? Process Instructions: ?? If no progress note charted, please enter Clinical details in comments. ?? Scheduling Instructions: ? Questions: ? My question or request is: s/p CABG. Cardiac rehab at [facility] ? Arrangements for VNA/home care: As above. [...] RN - 07/14/2017 2:34 PM EST The patient/member service representative has been provided a list of Home Health Agencies/DME vendors which serve their preferred geographic area. A letter describing our affiliations was reviewed with them and theywere educated about their right to choose where referrals are placed. Patient requests referral to [facility] PHONE: [phone] FAX: [phone] Expected date of discharge: 07/14 Referral routed to the Coding Educator for matching with agency/vendor and to provide [...] Carrera APRN [facility] Diabetes Management Pager [phone] minutes of this 35 minute visit was spent with the patient in counseling on diabetes and treatment plan, reviewing all glucose and insulin data as well as relevant laboratory results with the patient, and coordination of care on the inpatient unit including nursing and primary team. Zulma Andres, RN - 07/14/2017 10:30 AM EST The patient/member service representative has been provided a list of Home Health Agencies/DME vendors which serve their preferred geographic area. A letter describing our affiliations was reviewed with them and theywere educated about their right to choose where referrals are placed. Patient requests referral to : [facility] ([facility] [place] [facility] in [place] PHONE: [phone] FAX: [phone]. Expected date of discharge: 07/14/17 Referral routed to the Coding Educator for matching with agency/vendor and to provide [...] #6 s/p CABG X3. FSBG [address] at [place], reports no symptoms but did drink some [...] Azul APRN [facility] Diabetes Management Pager [phone] minutes of this 25 minute visit [...] of infiltration/extravasation Discussed plan of care with COMPUTER SYSTEMS DESIGNER and RN. Elevate exrtemity and apply intermittent Warm compresses. Name of MD contacted Dr. Shaw Brown 07/13/2017 @ 0611 Name of RN contacted Ale Rangel RN Name of Pharmacist if consulted NA Name of Plastics MD ( if consulted) NA (Mandatory photo for infiltrations/ extravasations scoring a stage 2 or greater, but recommended forstage 1)( include measuring tape and identifier in the photo) TRAVEL OT CARING FOR THIS PATIENT WILL CONTINUE TO [...] measuring tape and identifier in the photo) TRAVEL OT CARING FOR THIS PATIENT WILL CONTINUE TO [...] to both infiltrates addressed by this commercial real estate underwriter.All of Mr. Hoang's responses were entirely appropriate. Images of infiltrates attached here. Martha Sharp APRN - 07/13/2017 8:01 AM EST Cardiac Surgery Progress Note: ID: [id number] 72 year old male POD#6 s/p CABGx3 [...] discharge. ?? I have met with the patient/member service representative to discuss discharge planning needs. I have provided the [facility], Office of Care Management letter from the Smt Technician pertaining to rehab referrals. I have also provided a letter describing our affiliations within the [facility] and educated them about their right to choose where referrals are placed. ?? I reviewed the different levels of rehab including SNF, swing, acute and LTAC with the patient/member service representative. ?? The patient/member service representative has been provided a list of facilities within their preferred geographic area. ?? I have requested that the patient/member service representative provide at least three choices for referral. ?? The patient/member service representative have requested referrals to: ?? 1. . ?? 2. [facility] ?? 3. More to be entered ?? Expected date of discharge: 07/14 Note routed to Coding Educator who will communicate referrals to facilities and [...] hours. If BG remains greater than 240, ohkues22 units (no more than three times) & [...] hours. If BG remains greater than 240, bogdvx65 units (no more than three times) & call for new basal insulin orders. ??If less than 240 after two hours, give no insulin and resume prior schedule. Will continue to follow Katerin Patel. STACIE Azul [facility] Diabetes Management Pager [phone] minutes of this 35 minute visit was spent with the patient in counseling on diabetes and treatment plan, reviewing all glucose and insulin data as well as relevant laboratory results with the patient, and coordination of care on the inpatient unit including nursing and primary team. Makayla Stevenson APRN - 07/12/2017 9:52 AM EST Cardiac Surgery Progress Note: ID: [id number] 72 year old male POD#5 s/p CABGx3 [...] hours. If BG remains greater than 240, [id number] units (no more than three times) & [...] AM EST Cardiac Surgery Progress Note: ID: [id number] 72 year old male POD#4 s/p CABGx3 [...] AM EST Cardiac Surgery Progress Note: ID: [id number] 72 year old male POD#3 s/p CABGx3 [...] Gas) No results found for: PHART, PO2ART, ZVV3CYR Assessment/Plan: 72 year old male POD#3 s/p [...] PM EST Xavi Encounter Note Patient Name: Gergory Hoang : [id number] MR#: [id number] Admit Date: 07/05/2017 4:20 PM Hospital Day 4 days Narrative: Patient was sitting in chair, hugging heart pillow, opened his eyes, nodding to come into room Assessment: Patient was sleepy. Intervention and Outcome: Introduced leasing professional services and patient reached his hand out in appreciation. Follow-up: Drier Tender remains available for support. Time in [...] 10:45 AM EST Report given to staff forester to cover care Maddison Cee PA - 07/09/2017 9:00 AM EST Cardiac Surgery Progress Note: ID: [id number] 72 year old male POD#2 s/p CABGx3 [...] Attending Surgeon on rounds. Signed: STEPHANIE Iqbal [facility] Section of Cardiac Surgery Date: 07/09/2017 Magnolia Santiago [facility] - 07/09/2017 1:33 AM EST [...] when IABP d/c'ed. Gretchen Carolina, PT Pager [phone] Maddison Cee PA - 07/08/2017 11:27 AM EST Cardiac Surgery Progress Note: ID: [id number] 72 year old male POD#1 s/p CABGx3 [...] Attending Surgeon on rounds. Signed: STEPHANIE Iqbal [facility] Section of Cardiac Surgery Date: 07/08/2017 [...] unit. NICK SEGAL MD 07/08/2017 Jay Munoz [facility] - 07/08/2017 4:33 AM EST [...] in place in R femoral. No hematoma. CHAIR INSTALLER- Intact Psych- Anxious Skin- Dry, no [...] Dinorah Ramírez MD, PGY-1 Cardiology S1 (pgr. [phone]) Daphne Shahid MD - 07/06/2017 10:18 PM [...] intact. IABP in place in R femoral. CHAIR INSTALLER- Intact Psych- Anxious Skin- Dry, no [...] note for details. DAPHNE SHAHID MD Pager [phone] Jet Mckenna MD - 07/05/2017 6:48 PM EST Preliminary Cardiac Catheterization Procedure Note: Procedure(s) performed: Left heart cath, IABP insertion Access: Right DIRECTOR MACHINE-->8fr IABP A time-out was conducted prior to [...] effect. Heparin gtt maintained. Pt transferred to asset availability leader. documented in this encounter H&P Notes Daphne Shahid MD - 07/05/2017 6:08 PM EST CARDIOLOGY HISTORY & PHYSICAL EXAM Date of Admission: 07/05/2017 ( Hospital Day 0 days ) Responsible Attending: Daphne Shahid MD PCP: Lovely Vicente MD PCP#: [phone] Patient Active Problem List Diagnosis Code ??? [...] No significant valvular disease. Taken to the asset availability leader urgently for ongoing STEMI. [facility] Labs: INR 1.0 WBC 5.88 Hgb 12.9 [...] monitor I/O - s/p lasix in the asset availability leader, redose to aim net neg 1L by [...] - ISS - hold metformin - f/u [facility] #Home Meds - continue levothyroxine 175mcg - CPAP at night # Routine - DVT PPx: heparin drip - Diet: NPO - Code Status: FULL - Dispo: [facility] Cedric Bey MD Internal Medicine, PGY-2 Cardiology S1, Team Pager # [phone] CARDIOLOGY ATTENDING NOTE Patient: Gregory Hoang Date [...] amenable for PCI. DAPHNE SHAHID MD Pager [phone] documented in this encounter Miscellaneous Notes Consult Note - Daphne Shahid MD - 07/14/2017 11:46 AM EST Heart Failure Service Inpatient Consult Note Gregory Hoang Date of : 1945 Age: 72 y.o. Today's date: 07/14/17 PCP: Lovely Vicente MD AUTO REPAIR SHOP MANAGER: None Place of Service: [facility] Reason for Consult: Dr. Webber has requested [...] SETUP performed by Manny Mcknight MD at [facility] MAIN OR ??? PRO CABG, ARTERIAL, SINGLE N/A 07/07/2017 @CABG, USING ARTERIAL GRAFT;SINGLE ARTERIAL GRAFT (WRVU 33.75) performed by Yuan Webber MD at [facility] MAIN OR ??? PRO CABG, ARTERY-VEIN, TWO N/A 07/07/2017 @CABG, TWO VENOUS GRAFTS & ARTERIAL GRAFT (WRVU 7.93) performed by Yuan Webber MD at [facility] MAIN OR ??? PRO COLONOSCOPY, REMV LESN, SNARE 01/16/2014 COLONOSCOPY, POLYPECTOMY, REMOVAL LESION BY SNARE performed by Nohemi Jaimes MD at [facility] ENDOSCOPY ??? PRO ENDOSCOPY W/VIDEO-ASST VEIN HARVEST, CABG Right 07/07/2017 ENDOSCOPIC HARVEST VEIN(S) FOR CABG (WRVU 0.31) performed by Yuan Webber MD at [facility] MAIN OR ??? PRO THYROIDECTOMY 03/28/2013 THYROIDECTOMY, TOTAL OR COMPLETE performed by Manny Mcknight MD at [facility] MAIN OR Outpt Meds: Current Outpatient Prescriptions [...] following studies: EKG 07/14/17: NSR 75 bpm, LANDSCAPE CONTRACTOR anterior infarct, LAD CXR 07/11/17: FINDINGS: Sternotomy wires. The patient has been extubated, left chest tube removed, and [place]-Suzi catheter removed since the 07/07/2017 study. Atelectasis [...] was discussed with Zehra. Jaden Kelley MD Electrical Wirer Pager [phone] CARDIOLOGY ATTENDING NOTE Patient: Gregory Hoang Date [...] heart failure clinic. DAPHNE SHAHID MD Pager [phone] Plan of Care - Alden Chavarria, TRENCH DIGGER - 07/14/2017 11:35 AM EST Problem: Patient [...] Discharge Disposition: home with assist Alden Chavarria, TRENCH DIGGER Pager: [phone] Inpatient Physical Therapy Problem: Acute Rehab Services [...] to supine -- Bed Mobility Goal, [place] Level supervision required -- Bed Mobility Goal, [...] 3 days -- Gait Training Goal, [place] Level supervision required -- Gait Training Goal, [...] days -- Transfer Training Goal, Activity Type kll-xh-imktx/iujub-jh-ucq;eux-yv-agfll/aqeqs-ct-cbo;toilet -- Transfer Train Goal, [place] Level supervision required -- Transfer Training Goal, [...] keeping present for 2 days per family. Gear Setter noted of frustrations, house keeping sent to room. Patient offered showered twice, refused. at bedside, frustrated that shower not complete, informed that patient had refused several times. requesting to see DELI MANAGER, paged sent to Martha, will come to bedside (middle of consult). not willing to wait, Martha notified that family had gone home. Encouraged to come for morning rounds a t 8am. Diabetes team at bedside - insulin adjustments made. Call cabello in reach. Continue to monitor. PLAN MOVING FORWARD: Ambulate, dressing changes BID, Please change drsg at 4am per Martha DELI MANAGER request. INDIVIDUALIZED FALL PREVENTION INTERVENTIONS: Patient-specific fall [...] levels on the lower side, 60ml of [place] juice given after a FS of 80. [...] Conf 07/13/17 0502 Interdisciplinary Rounds/Family Conf Participants shoe parts caser;dietitian/nutrition services;nursing;occupational therapy;patient;pharmacy;physical therapy;physician Plan of Care [...] Anticipated Discharge Disposition: home with assist Pager: [phone] CLARISSA SEGAL, PT 07/12/2017 Physical Therapy Rehabilitation [...] sit/sit to supine Bed Mobility Goal, [place] Level supervision required Bed Mobility Goal, Additional Goal adheres to psternal precautions for transfer Goal: Gait Training Goal Stand Alone Therapy Goal Outcome: Ongoing (Interventions Implemented as Appropriate) 07/12/17 1225 Gait Training Goal Gait Training Goal, Date Established 07/12/17 Gait Training Goal, Time to Achieve 2 - 3 days Gait Training Goal, [place] Level supervision required Gait Training Goal, Assist [...] 3 days Transfer Training Goal, Activity Type mnd-rs-xyyhv/wiljw-bi-bku;pqg-jg-oveso/uzkbz-ek-tnn;toilet Transfer Train Goal, [place] Level supervision required Transfer Training Goal, Additional Goal adheres to sternal precautions during transfer Consult Note - Octavia Vaughn RN - 07/12/2017 10:50 AM EST [facility] Gregory Hoang was seen today regarding participation in the outpatient Phase 2 Cardiac Rehabilitation at [facility]. The patient agrees to a referral to [...] IV site, amio to other piv and PIPE CHANGER at bedside to help assess, IV removed. [...] Outcome: Ongoing (Interventions Implemented as Appropriate) 07/11/17199907/11/17200907/12/17 [facility] Daily Care Interventions Self-Care Promotion -- [...] staff, he stood and marched in place. Jadwin weak, wanting to sit back down. Remained [...] Outcome: Ongoing (Interventions Implemented as Appropriate) 07/05/17 3084 Mutuality/Individual Preferences What Anxieties, Fears or Concerns [...] Health/Prescription Coverage: Primary Insurance: MEDICARE Secondary Insurance: [employer] [place] Prescription Coverage: yes [facility]erred Pharmacy[facility] [place] Other: none Primary Care Provider: Lovely Vicente MD [phone] Patient/Caregiver Goals of Treatment:live and get my breath back Potential Needs for Transition of Care: Rehab[facility]SNF: [facility]; [facility] Home Health: NA DME: TBD Dialysis: na Community Resources: available Transportation: yes Other: none Anticipated Barriers to Discharge/Special Considerations: none Plan: Likely SNF Rehab before home A member of the Care Management team will continue to monitor progress, follow for continuity of care and assist with transition of care planning. ERLIN Weiss Pager: [phone] Consult Note - Katerin Azul RN - [...] patient W/E coverage, Dr. Jeane Tatum, pager [phone] Katerin Patel. STACIE [facility]ul Endocrinology Diabetes Management Pager [phone] Plan of Care - Stephanie Godoy RN [...] Operative Note Patient Name: Gregory Hoang : [id number] MR#: [id number] Case Date: 07/07/2017 Surgeon: Surgeon(s) and Role: * Yuan Webber MD - Primary * Michael Drake PA - Physician Convention Planner * Linda Flores PA - Physician Convention Planner Preoperative diagnosis: 3VD Postoperative diagnosis: CAD, severe [...] Operative Note Patient Name: Gregory Hoang : [id number] MR#: [id number] Case Date: 07/07/2017 Surgeon: Surgeon(s) and Role: * Yuan Webber MD - Primary * Michael Drake PA - Physician Convention Planner * Linda Flores PA - Physician Convention Planner Preoperative diagnosis: 3VD Postoperative diagnosis: CAD, severe [...] major CV events such as , stroke, VA, repeat revascularization compared to PCI). In this [...] status: Full Code Katty Jovani, MS3 [facility] Cardiology S1 (Pager [phone]) Plan of Care - Emelia Ibarra RN [...] hospital and ruled infor non-ST segment elevation VA. This almost certainly represents the residual of [...] SETUP performed by Manny Mcknight MD at [facility] MAIN OR ??? PRO COLONOSCOPY, REMV LESN, SNARE 01/16/2014 COLONOSCOPY, POLYPECTOMY, REMOVAL LESION BY SNARE performed by Nohemi Jaimes MD at [facility] ENDOSCOPY ??? PRO THYROIDECTOMY 03/28/2013 THYROIDECTOMY, TOTAL OR COMPLETE performed by Manny Mcknight MD at [facility] MAIN OR Social History: Social [...] an appropriate candidate for open revascularization. Mr. Hoagn and his had the opportunity to ask [...] with other involved physicians Yuan Webber MD [phone] Med Student Progress Note - Jovani Katty [...] major CV events such as , stroke, VA, repeat revascularization compared to PCI). In this [...] or BiPAP - s/p lasix in the asset availability leader, was net -1.5L - s/p plavix load, [...] Dispo: CVCC Katty Hahn, M3 [facility] Cardiology S1 (Pager [phone]) Plan of Care - Stephanie Godoy RN [...] in urinal without difficulty. Lasix given in asset availability leader, 1.4 L out at this time. Pt [...] Vitaliy Nobles MD [facility] CARDIOLOGY [place], [place] [address] ( lissa) 06/10/2022 Office Visit Dermatology Laura Scherer MD [facility] [address] [facility] [place], [place] [address] (Wo lissa) Scheduled Orders Name [...] procedure are i n the results section. 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 [facility] PM EST 7.93) @CABG, USING ARTERIAL Yes [...] Routine 07/06/2017 7:40 Results f or this ([place]/[facility]) PM EST [...] Timed 07/05/2017 4:55 Results f or this ([place]) PM EST procedure are i n the [...] [place] at 08/19/2017 10:30 AM Martha Teague ANIMAL KEEPER IMG DX ORDERABLES SCAN DOC: DIRECTOR OF EMPLOYER SERVICES (07/15/2017 12:00 AM EST) Narrative 07/15/2017 12:00 [...] Signature POC Glucose 186 65 - 199 [facility] LABORATORY Comment: Supplemental ranges: <140 mg/dL before meals <180 mg/dL all other times of the day Specimen Anatomical Collection Method Collection Time Receive d Time (Source) Location / / Volume Laterality Blood specimen 07/14/2017 11:56 7 (specimen) AM EST 11:56 AM EST Yuan Webber MD POINT OF CARE TEST ORDERABLE S Performing Organization Address City/State/ZIP [place] [address] POCT Glucose (07/14/2017 7:52 AM EST) athologist Signature POC Glucose 126 65 - 199 [facility] mg/dL [facility] LAB[facility]ORY Comment: Supplemental ranges: <140 mg/dL before meals <180 mg/dL all other times of the day Specimen Anatomical Collection Method Collection Time Receive d Time (Source) Location / / Volume Laterality Blood specimen 07/14/2017 7:52 AM 017 7:52 (specimen) EST AM EST Yuan Webber MD POINT OF CARE TEST ORDERABLE S Performing Organization Address City/State/Z[place] [address] (ABNORMAL) Prothrombin Time (07/14/2017 4:46 AM EST) P athologist Signature PT 26.4 (H) 11.8 - 14.0 [facility] LABORATORY INR 2.4 (H) 0.9 - 1.1 [facility] LABORATORY [...] Wilson APRN HEMATOLOGY ORDERABLES Performing Organization Address City/[facility]/ZIP [place] [address] Potassium (07/14/2017 4:46 AM EST) athologist Signature Potassium 4.3 3.5 - 5.0 [facility] mmol/L [facility] Comment: Please note: ??Patients with WBC [...] Wilson APRN CHEMISTRY ORDERABLES Performing Organization Address City/[facility]/ZIP [place] [address] POCT Glucose (07/14/2017 4:34 AM EST) athologist Signature POC Glucose 115 65 - 199 [facility] mg/dL [facility] Comment: Supplemental ranges: <140 mg/dL before meals <180 mg/dL all other times of the day Specimen Anatomical Collection Method Collection Time Receive d Time (Source) Location / / Volume Laterality Blood specimen 07/14/2017 4:34 AM 017 4:34 (specimen) EST AM EST Yuan Webber MD POINT OF CARE TEST ORDERABLE S Performing Organization Address City/[facility]/ZIP Code Phon e Number [address] POCT Glucose (07/13/2017 11:33 PM EST) athologist Signature POC Glucose 132 65 - 199 [facility] mg/dL [facility] Comment: Supplemental ranges: <140 mg/dL before meals <180 mg/dL all other times of the day Specimen Anatomical Collection Method Collection Time Receive d Time (Source) Location / / Volume Laterality Blood specimen 07/13/2017 11:33 7 (specimen) PM EST 11:33 PM EST Yuan Webber MD POINT OF CARE TEST ORDERABLE S Performing Organization Address City/State/ZIP [place] [address] POCT Glucose (07/13/2017 9:25 PM EST) athologist Signature POC Glucose 121 65 - 199 [facility] mg/dL [facility] Comment: Supplemental ranges: <140 mg/dL before meals <180 mg/dL all other times of the day Specimen Anatomical Collection Method Collection Time Receive d Time (Source) Location / / Volume Laterality Blood specimen 07/13/2017 9:25 PM 017 9:25 (specimen) EST PM EST Yuan Webber MD POINT OF CARE TEST ORDERABLE S Performing Organization Address City/State/ZIP [place] [address] POCT Glucose (07/13/2017 4:55 PM EST) athologist Signature POC Glucose 79 65 - 199 [facility] mg/dL [facility] Comment: Supplemental ranges: <140 mg/dL before meals <180 mg/dL all other times of the day Specimen Anatomical Collection Method Collection Time Receive d Time (Source) Location / / Volume Laterality Blood specimen 07/13/2017 4:55 PM 017 4:55 (specimen) EST PM EST Yuan Webber MD POINT OF CARE TEST ORDERABLE S Performing Organization Address City/State/ZIP [place] [address] POCT Glucose (07/13/2017 11:16 AM EST) athologist Signature POC Glucose 163 65 - 199 [facility] mg/dL [facility] Comment: Supplemental ranges: <140 mg/dL before meals <180 mg/dL all other times of the day Specimen Anatomical Collection Method Collection Time Receive d Time (Source) Location / / Volume Laterality Blood specimen 07/13/2017 11:16 7 (specimen) AM EST 11:16 AM EST Yuan Webber MD POINT OF CARE TEST ORDERABLE S Performing Organization Address City/State/ZIP [place] [address] POCT Glucose (07/13/2017 8:07 AM EST) athologist Signature POC Glucose 96 65 - 199 [facility] mg/dL [facility]ORY Comment: Supplemental ranges: <140 mg/dL before meals <180 mg/dL all other times of the day Specimen Anatomical Collection Method Collection Time Receive d Time (Source) Location / / Volume Laterality Blood specimen 07/13/2017 8:07 AM 017 8:07 (specimen) EST AM EST Yuan Webber MD POINT OF CARE TEST ORDERABLE S Performing Organization Address City/[facility]/ZIP [place] [address] (ABNORMAL) Prothrombin Time (07/13/2017 4:26 AM EST) athologist Signature PT 20.8 (H) 11.8 - 14.0 [facility] LABORATORY INR 1.8 (H) 0.9 - 1.1 [facility] LABORATORY [...] Address City/State/ZIP [place] [address] (ABNORMAL) Basic Metabolic Panel (non-fasting) (07/13/2017 4:26 AM EST) athologist Signature Glucose Lvl 95 65 - 199 [facility] mg/dL [facility]ORY Comment: Diabetes: >=200 mg/dL plus symp [...] [facility] Estimated GFR 60 >=60 [facility] LAB[facility] Comment: The reported eGFR should be multiplied b y 1.2 for patients. The MDRD is not an appropriate measure o f renal function for patients with body mass extremes or in patients with acute kidney failure. http://SiCortex.800razors/DHnkdep http://SimpleSite/DHMCnkf Specimen Anatomical Collection Method Collection Time Receive d Time (Source) Location / / Volume Laterality Blood specimen 07/13/2017 4:26 AM 017 4:46 (specimen) EST AM EST Resulting Agency Comment Spec In Lab Makayla Wilson APRN CHEMISTRY ORDERABLES Performing Organization Address City/State/[place] [address] POCT Glucose (07/13/2017 3:52 AM EST) athologist Signature POC Glucose 93 65 - 199 [facility] mg/dL [facility] Comment: Supplemental ranges: <140 mg/dL before meals <180 mg/dL all other times of the day Specimen Anatomical Collection Method Collection Time Receive d Time (Source) Location / / Volume Laterality Blood specimen 07/13/2017 3:52 AM 017 3:52 (specimen) EST AM EST Yuan Webber MD POINT OF CARE TEST ORDERABLE S Performing Organization Address City/State/ZIP [place] [address] POCT Glucose (07/13/2017 12:21 AM EST) athologist Signature POC Glucose 80 65 - 199 [place] mg/dL [facility] Comment: Supplemental ranges: <140 mg/dL before meals <180 mg/dL all other times of the day Specimen Anatomical Collection Method Collection Time Receive d Time (Source) Location / / Volume Laterality Blood specimen 07/13/2017 12:21 7 (specimen) AM EST 12:21 AM EST Yuan Webber MD POINT OF CARE TEST ORDERABLE S Performing Organization Address City/State/ZIP Code Phon e Number [address] POCT Glucose (07/12/2017 8:22 PM EST) athologist Signature POC Glucose 119 65 - 199 [place] [facility] mg/dL [facility] Comment: Supplemental ranges: <140 mg/dL before meals <180 mg/dL all other times of the day Specimen Anatomical Collection Method Collection Time Receive d Time (Source) Location / / Volume Laterality Blood specimen 07/12/2017 8:22 PM 017 8:22 (specimen) EST PM EST Yuan Webber MD POINT OF CARE TEST ORDERABLE S Performing Organization Address City/State/ZIP Code Phon e Number [address] POCT Glucose (07/12/2017 4:02 PM EST) athologist Signature POC Glucose 114 65 - 199 [facility] mg/dL [facility] Comment: Supplemental ranges: <140 mg/dL before meals <180 mg/dL all other times of the day Specimen Anatomical Collection Method Collection Time Receive d Time (Source) Location / / Volume Laterality Blood specimen 07/12/2017 4:02 PM 017 4:02 (specimen) EST PM EST Yuan Webber MD POINT OF CARE TEST ORDERABLE S Performing Organization Address City/State/ZIP [place] [address] POCT Glucose (07/12/2017 11:28 AM EST) athologist Signature POC Glucose 164 65 - 199 [place] mg/dL [facility] Comment: Supplemental ranges: <140 mg/dL before meals <180 mg/dL all other times of the day Specimen Anatomical Collection Method Collection Time Receive d Time (Source) Location / / Volume Laterality Blood specimen 07/12/2017 11:28 7 (specimen) AM EST 11:28 AM EST Yuan Webber MD POINT OF CARE TEST ORDERABLE S Performing Organization Address City/State/ZIP [place] [address] POCT Glucose (07/12/2017 7:34 AM EST) athologist Signature POC Glucose 109 65 - 199 [facility] mg/dL [facility]ORY Comment: Supplemental ranges: <140 mg/dL before meals <180 mg/dL all other times of the day Specimen Anatomical Collection Method Collection Time Receive d Time (Source) Location / / Volume Laterality Blood specimen 07/12/2017 7:34 AM 017 7:34 (specimen) EST AM EST Yuan Webber MD POINT OF CARE TEST ORDERABLE S Performing Organization Address City/State/ZIP [place] [address] (ABNORMAL) Basic Metabolic Panel (non-fasting) (07/12/2017 4:11 AM EST) athologist Signature Glucose Lvl 92 65 - 199 [facility] mg/dL [facility]ORY Comment: Diabetes: >=200 mg/dL plus symp toms BUN 31 (H) 10 - 20 mg/dL [facility] LABOR[facility]ORY Creatinine 1.23 0.80 - 1.50 mg/dL [facility] LABORATORY Sodium 145 135 - [...] - 107 mmol/L [facility] LABORATORY CO2 Not Perf 22 - 31 mmol/L [facility] Comment: Add-on request. Sample too old to perform test. Anion Gap Not Calculated 5 - 15 mmol/L [facility] [...] or in patients with acute kidney failure. http://SiCortex.800razors/DHnkdep http://SimpleSite/DHMCnkf Specimen Anatomical Collection Method Collection Time Receive d Time (Source) Location / / Volume Laterality Blood specimen 07/12/2017 4:11 AM 017 8:57 (specimen) EST AM EST Resulting Agency Comment Spec In Lab Makayla Wilson APRN CHEMISTRY ORDERABLES Performing Organization Address City/State/[place] [address] (ABNORMAL) Prothrombin Time (07/12/2017 4:11 AM EST) P athologist Signature PT 15.4 (H) 11.8 - 14.0 [facility] LABORATORY INR 1.2 (H) 0.9 - 1.1 [facility] Comment: An INR [...] Wilson STACIE HEMATOLOGY ORDERABLES Performing Organization Address City/[facility]/ZIP Code Phon e Number [address] Potassium (07/12/2017 4:11 AM EST) athologist Signature Potassium 3.8 3.5 - 5.0 [facility] mmol/L [facility] Comment: Please note: ??Patients with WBC [...] Wilson STACIE CHEMISTRY ORDERABLES Performing Organization Address City/[facility]/ZIP [place] [address] POCT Glucose (07/12/2017 4:10 AM EST) athologist Signature POC Glucose 90 65 - 199 [facility] mg/dL [facility] Comment: Supplemental ranges: <140 mg/dL before meals <180 mg/dL all other times of the day Specimen Anatomical Collection Method Collection Time Receive d Time (Source) Location / / Volume Laterality Blood specimen 07/12/2017 4:10 AM 017 4:10 (specimen) EST AM EST Yuan Webber MD POINT OF CARE TEST ORDERABLE S Performing Organization Address City/State/ZIP [place] [address] POCT Glucose (07/11/2017 11:57 PM EST) athologist Signature POC Glucose 98 65 - 199 [facility] mg/dL [facility] Comment: Supplemental ranges: <140 mg/dL before meals <180 mg/dL all other times of the day Specimen Anatomical Collection Method Collection Time Receive d Time (Source) Location / / Volume Laterality Blood specimen 07/11/2017 11:57 7 (specimen) PM EST 11:57 PM EST Yuan Webber MD POINT OF CARE TEST ORDERABLE S Performing Organization Address City/[facility]/ZIP [place] [address] POCT Glucose (07/11/2017 8:32 PM EST) athologist Signature POC Glucose 146 65 - 199 [facility] mg/dL [facility] Comment: Supplemental ranges: <140 mg/dL before meals <180 mg/dL all other times of the day Specimen Anatomical Collection Method Collection Time Receive d Time (Source) Location / / Volume Laterality Blood specimen 07/11/2017 8:32 PM 017 8:32 (specimen) EST PM EST Yuan Webber MD POINT OF CARE TEST ORDERABLE S Performing Organization Address City/State/Z[place] [address] XR Chest PA & [...] e xtubated, left chest tube removed, and [place]-Suzi catheter removed since the study. Atelectasis at [...] e xtubated, left chest tube removed, and [place]-Suzi catheter removed since the study. Atelectasis at [...] POC Glucose 223 (H) 65 - 199 [facility]ORY Comment: Supplemental ranges: <140 mg/dL before meals <180 mg/dL all other times of the day Specimen Anatomical Collection Method Collection Time Receive d Time (Source) Location / / Volume Laterality Blood specimen 07/11/2017 4:05 PM 017 4:05 (specimen) EST PM EST Yuan Webber MD POINT OF CARE TEST ORDERABLE S Performing Organization Address City/State/[place] [address] POCT Glucose (07/11/2017 11:55 AM EST) athologist Signature POC Glucose 176 65 - 199 [facility]/dL [facility]ORY Comment: Supplemental ranges: <140 mg/dL before meals <180 mg/dL all other times of the day Specimen Anatomical Collection Method Collection Time Receive d Time (Source) Location / / Volume Laterality Blood specimen 07/11/2017 11:55 7 (specimen) AM EST 11:55 AM EST Yuan Webber MD POINT OF CARE TEST ORDERABLE S Performing Organization Address City/State/ZIP [place] [address] POCT Glucose (07/11/2017 7:53 AM EST) athologist Signature POC Glucose 189 65 - 199 [place] mg/dL [facility] Comment: Supplemental ranges: <140 mg/dL before meals <180 mg/dL all other times of the day Specimen Anatomical Collection Method Collection Time Receive d Time (Source) Location / / Volume Laterality Blood specimen 07/11/2017 7:53 AM 017 7:53 (specimen) EST AM EST Yuan Webber MD POINT OF CARE TEST ORDERABLE S Performing Organization Address City/State/ZIP [place] [address] POCT Glucose (07/11/2017 4:22 AM EST) athologist Signature POC Glucose 151 65 - 199 [place] mg/dL [facility]ORY Comment: Supplemental ranges: <140 mg/dL before meals <180 mg/dL all other times of the day Specimen Anatomical Collection Method Collection Time Receive d Time (Source) Location / / Volume Laterality Blood specimen 07/11/2017 4:22 AM 017 4:22 (specimen) EST AM EST Yuan Webber MD POINT OF CARE TEST ORDERABLE S Performing Organization Address City/State/ZIP Code Phon e Number [address] Potassium (07/11/2017 2:20 AM EST) athologist Signature Potassium 4.5 3.5 - 5.0 [facility] mmol/L [facility] Comment: Please note: ??Patients with WBC [...] Address City/State/ZIP Code Phon e Number [address] POCT Glucose (07/11/2017 12:17 AM EST) athologist Signature POC Glucose 162 65 - 199 [facility] Comment: Supplemental ranges: <140 mg/dL before meals <180 mg/dL all other times of the day Specimen Anatomical Collection Method Collection Time Receive d Time (Source) Location / / Volume Laterality Blood specimen 07/11/2017 12:17 7 (specimen) AM EST 12:17 AM EST Yuan Webber MD POINT OF CARE TEST ORDERABLE S Performing Organization Address City/[facility]/ZIP Code Phon e Number [address] POCT Glucose (07/10/2017 8:47 PM EST) athologist Signature POC Glucose 191 65 - 199 [facility] Comment: Supplemental ranges: <140 mg/dL before meals <180 mg/dL all other times of the day Specimen Anatomical Collection Method Collection Time Receive d Time (Source) Location / / Volume Laterality Blood specimen 07/10/2017 8:47 PM 017 8:47 (specimen) EST PM EST Yuan Webber MD POINT OF CARE TEST ORDERABLE S Performing Organization Address City/[facility]/ZIP [facility] Phon e Number [address] POCT Glucose (07/10/2017 4:06 PM EST) athologist Signature POC Glucose 131 65 - 199 [facility] mg/dL [facility] Comment: Supplemental ranges: <140 mg/dL before meals <180 mg/dL all other times of the day Specimen Anatomical Collection Method Collection Time Receive d Time (Source) Location / / Volume Laterality Blood specimen 07/10/2017 4:06 PM 017 4:06 (specimen) EST PM EST Yuan Webber MD POINT OF CARE TEST ORDERABLE S Performing Organization Address City/State/ZIP Code Phon e Number [address] POCT Glucose (07/10/2017 3:08 PM EST) athologist Signature POC Glucose 151 65 - 199 [facility] mg/dL [facility] Comment: Supplemental ranges: <140 mg/dL before meals <180 mg/dL all other times of the day Specimen Anatomical Collection Method Collection Time Receive d Time (Source) Location / / Volume Laterality Blood specimen 07/10/2017 3:08 PM 017 3:08 (specimen) EST PM EST Yuan Webber MD POINT OF CARE TEST ORDERABLE S Performing Organization Address City/State/ZIP Code Phon e Number [address] POCT Glucose (07/10/2017 2:25 PM EST) athologist Signature POC Glucose 146 65 - 199 [facility] mg/dL [facility] Comment: Supplemental ranges: <140 mg/dL before meals <180 mg/dL all other times of the day Specimen Anatomical Collection Method Collection Time Receive d Time (Source) Location / / Volume Laterality Blood specimen 07/10/2017 2:25 PM 017 2:25 (specimen) EST PM EST Yuan Webber MD POINT OF CARE TEST ORDERABLE S Performing Organization Address City/State/ZIP Code Phon e Number [address] POCT Glucose (07/10/2017 1:23 PM EST) athologist Signature POC Glucose 166 65 - 199 [facility] mg/dL [facility] Comment: Supplemental ranges: <140 mg/dL before meals <180 mg/dL all other times of the day Specimen Anatomical Collection Method Collection Time Receive d Time (Source) Location / / Volume Laterality Blood specimen 07/10/2017 1:23 PM 017 1:23 (specimen) EST PM EST Yuan Webber MD POINT OF CARE TEST ORDERABLE S Performing Organization Address City/State/ZIP [place] [address] POCT Glucose (07/10/2017 11:52 AM EST) P athologist Signature POC Glucose 157 65 - 199 [facility] RYAN mg/dL [facility] Comment: Supplemental ranges: <140 mg/dL before meals <180 mg/dL all other times of the day Specimen Anatomical Collection Method Collection Time Receive d Time (Source) Location / / Volume Laterality Blood specimen 07/10/2017 11:52 7 (specimen) AM EST 11:52 AM EST Yuan Webber MD POINT OF CARE TEST ORDERABLE S Performing Organization Address City/State/ZIP [place] [address] POCT Glucose (07/10/2017 11:01 AM EST) P athologist Signature POC Glucose 158 65 - 199 [place] mg/dL [facility] Comment: Supplemental ranges: <140 mg/dL before meals <180 mg/dL all other times of the day Specimen Anatomical Collection Method Collection Time Receive d Time (Source) Location / / Volume Laterality Blood specimen 07/10/2017 11:01 7 (specimen) AM EST 11:01 AM EST Yuan Webber MD POINT OF CARE TEST ORDERABLE S Performing Organization Address City/State/ZIP Code Phon e Number [address] POCT Glucose (07/10/2017 9:54 AM EST) P athologist Signature POC Glucose 160 65 - 199 [facility] RYAN mg/dL [facility] Comment: Supplemental ranges: <140 mg/dL before meals <180 mg/dL all other times of the day Specimen Anatomical Collection Method Collection Time Receive d Time (Source) Location / / Volume Laterality Blood specimen 07/10/2017 9:54 AM 017 9:54 (specimen) EST AM EST Yuan Webber MD POINT OF CARE TEST ORDERABLE S Performing Organization Address City/State/ZIP Code Phon e Number [address] POCT Glucose (07/10/2017 8:58 AM EST) athologist Signature POC Glucose 183 65 - 199 [place] mg/dL [facility] Comment: Supplemental ranges: <140 mg/dL before meals <180 mg/dL all other times of the day Specimen Anatomical Collection Method Collection Time Receive d Time (Source) Location / / Volume Laterality Blood specimen 07/10/2017 8:58 AM 017 8:58 (specimen) EST AM EST Yuan Webber MD POINT OF CARE TEST ORDERABLE S Performing Organization Address City/State/ZIP Code Phon e Number [address] POCT Glucose (07/10/2017 8:01 AM EST) athologist Signature POC Glucose 173 65 - 199 [place] mg/dL [facility] Comment: Supplemental ranges: <140 mg/dL before meals <180 mg/dL all other times of the day Specimen Anatomical Collection Method Collection Time Receive d Time (Source) Location / / Volume Laterality Blood specimen 07/10/2017 8:01 AM 017 8:01 (specimen) EST AM EST Yuan Webber MD POINT OF CARE TEST ORDERABLE S Performing Organization Address City/State/ZIP [place] [address] POCT Glucose (07/10/2017 7:05 AM EST) athologist Signature POC Glucose 166 65 - 199 [place] mg/dL [facility] Comment: Supplemental ranges: <140 mg/dL before meals <180 mg/dL all other times of the day Specimen Anatomical Collection Method Collection Time Receive d Time (Source) Location / / Volume Laterality Blood specimen 07/10/2017 7:05 AM 017 7:05 (specimen) EST AM EST Yuan Webber MD POINT OF CARE TEST ORDERABLE S Performing Organization Address City/State/ZIP [place] [address] POCT Glucose (07/10/2017 6:00 AM EST) P athologist Signature POC Glucose 162 65 - 199 [facility] mg/dL [facility] Comment: Supplemental ranges: <140 mg/dL before meals <180 mg/dL all other times of the day Specimen Anatomical Collection Method Collection Time Receive d Time (Source) Location / / Volume Laterality Blood specimen 07/10/2017 6:00 AM 017 6:00 (specimen) EST AM EST Yuan Webber MD POINT OF CARE TEST ORDERABLE S Performing Organization Address City/State/ZIP [place] [address] (ABNORMAL) Differential, Automated (07/10/2017 4:28 AM EST) Patholo gist Method Time Signature Neutrophils % 87.9 % [facility] Neutr Abs (ANC) 10.70 (H) 1.70 - [facility] 6.10 [facility] x10(3)/[facility] L LABORATORY Lymphocytes % 3.9 % [facility] Lymphocytes Abs 0.5 (L) 0.9 - 3.2 [facility] x10(3)/[facility] LABORATORY Monocytes % 7.0 % [facility] Monocyte Abs 0.8 0.3 - 0.9 [facility] x10(3)/[facility] LABORATORY Eosinophils % 0.3 % [facility] Eosinophils Abs 0.0 0.0 - 0.4 [facility] x10(3)/[facility] LABORATORY Basophils % 0.2 % [facility] Basophils Abs 0.0 0.0 - 0.1 [facility] x10(3)/[facility] LABORATORY Immature Gran % 0.70 % [facility] [...] Gran Abs 0.08 (H) 0.00 - 0.04 x10(3)/[facility] LABORATORY Specimen Anatomical Collection Method Collection Time Receive d Time (Source) Location / / Volume Laterality Blood specimen 07/10/2017 4:28 AM 017 4:36 (specimen) EST AM EST Resulting Agency Comment Spec In Lab Yuan Webber MD HEMATOLOGY ORDERABLES Performing Organization Address City/State/ZIP [place] [address] (ABNORMAL) Hemogram (07/10/2017 4:28 AM EST) Analysis Performed At Patho logist Time Signature WBC 12.2 (H) 4.0 - 9.5 [facility] x10(3)/[facility] LABORATORY RBC 3.31 (L) 4.58 - [facility] 5.54 [facility] x10(6)/[facility] LABORATORY Hemoglobin 9.8 (L) 13.7 - [facility] 16.5 gm/dL [facility] Hematocrit 30.0 (L) 40.5 - [facility] 48.5 % [facility] MCV 90.6 82.9 - [facility] 93.1 [facility] LABORATORY MCH 29.6 27.5 - [place] RYAN 32.1 pg [facility] LAB[facility]ATORY MCHC 32.7 32.0 - [facility] 35.7 gm/dL [facility] Platelets 135 (L) 145 - 357 [facility] x10(3)/[facility] LABORATORY RDWSD 50.8 (H) 36.0 - [facility] 45.0 [facility] RDWCV 15.4 (H) 11.4 - [facility] 13.8 % [facility] LAB[facility]ATORY MPV 10.0 7.6 - 12.9 [facility] LABORATORY nRBC % Auto 0.0 % [facility] LAB[facility] nRBC Abs Auto 0.000 0.000 - [facility] 0.000 [facility] x10(3)/[facility] LABORATORY Specimen Anatomical Collection Method Collection Time Receive d Time (Source) Location / / Volume Laterality Blood specimen 07/10/2017 4:28 AM 017 4:36 (specimen) EST AM EST Resulting Agency Comment Spec In Lab Yuan Webber MD HEMATOLOGY ORDERABLES Performing Organization Address City/State/[place] [address] (ABNORMAL) Basic Metabolic Panel (non-fasting) (07/10/2017 4:28 AM EST) P athologist Signature Glucose Lvl 178 65 - 199 [facility] mg/dL [facility] Comment: Diabetes: >=200 mg/dL plus symp [...] estions. Chloride 107 98 - 107 mmol/L [facility] CO2 21 (L) 22 - 31 mmol/L [facility] Anion Gap 15 5 - 15 mmol/L [facility] LAB[facility]ATORY Calcium 7.4 (L) 8.5 - 10.5 mg/dL [facility] LABORATORY Estimated GFR 60 >=60 [facility] Comment: The reported eGFR should be multiplied b y 1.2 for patients. The MDRD is not an appropriate measure o f renal function for patients with body mass extremes or in patients with acute kidney failure. http://Si[employer].800razors/DHnkdep http://SiCortex.800razors/DHMCnkf Specimen Anatomical Collection Method Collection Time Receive d Time (Source) Location / / Volume Laterality Blood specimen 07/10/2017 4:28 AM 017 4:36 (specimen) EST AM EST Resulting Agency Comment Spec In Lab Yuan Webber MD CHEMISTRY ORDERABLES Performing Organization Address City/State/ZIP Code Phon e Number [address] POCT Glucose (07/10/2017 4:26 AM EST) athologist Signature POC Glucose 176 65 - 199 [place] mg/dL [facility] Comment: Supplemental ranges: <140 mg/dL before meals <180 mg/dL all other times of the day Specimen Anatomical Collection Method Collection Time Receive d Time (Source) Location / / Volume Laterality Blood specimen 07/10/2017 4:26 AM 017 4:26 (specimen) EST AM EST Yuan Webber MD POINT OF CARE TEST ORDERABLE S Performing Organization Address City/[facility]/ZIP [place] [address] (ABNORMAL) POCT Glucose (07/10/2017 3:06 AM EST) athologist Signature POC Glucose 204 (H) 65 - 199 [place] RY[place] mg/dL [facility] Comment: Supplemental ranges: <140 mg/dL before meals <180 mg/dL all other times of the day Specimen Anatomical Collection Method Collection Time Receive d Time (Source) Location / / Volume Laterality Blood specimen 07/10/2017 3:06 AM 017 3:06 (specimen) EST AM EST Yuan Webber MD POINT OF CARE TEST ORDERABLE S Performing Organization Address City/[facility]/ZIP [place] [address] (ABNORMAL) POCT Glucose (07/10/2017 2:10 AM EST) athologist Signature POC Glucose 203 (H) 65 - 199 [place] RY[place] mg/dL [facility] Comment: Supplemental ranges: <140 mg/dL before meals <180 mg/dL all other times of the day Specimen Anatomical Collection Method Collection Time Receive d Time (Source) Location / / Volume Laterality Blood specimen 07/10/2017 2:10 AM 017 2:10 (specimen) EST AM EST Yuan Webber MD POINT OF CARE TEST ORDERABLE S Performing Organization Address City/State/ZIP Code Phon e Number [address] POCT Glucose (07/10/2017 1:09 AM EST) P athologist Signature POC Glucose 196 65 - 199 [place] [facility] mg/dL [facility] Comment: Supplemental ranges: <140 mg/dL before meals <180 mg/dL all other times of the day Specimen Anatomical Collection Method Collection Time Receive d Time (Source) Location / / Volume Laterality Blood specimen 07/10/2017 1:09 AM 017 1:09 (specimen) EST AM EST Yuan Webber MD POINT OF CARE TEST ORDERABLE S Performing Organization Address City/State/ZIP Code Phon e Number [address] POCT Glucose (07/10/2017 12:10 AM EST) athologist Signature POC Glucose 173 65 - 199 [place] ZHA[place] mg/dL [facility] Comment: Supplemental ranges: <140 mg/dL before meals <180 mg/dL all other times of the day Specimen Anatomical Collection Method Collection Time Receive d Time (Source) Location / / Volume Laterality Blood specimen 07/10/2017 12:10 7 (specimen) AM EST 12:10 AM EST Yuan Webber MD POINT OF CARE TEST ORDERABLE S Performing Organization Address City/State/ZIP Code Phon e Number [address] POCT Glucose (07/09/2017 11:01 PM EST) athologist Signature POC Glucose 140 65 - 199 [place] mg/dL [facility] Comment: Supplemental ranges: <140 mg/dL before meals <180 mg/dL all other times of the day Specimen Anatomical Collection Method Collection Time Receive d Time (Source) Location / / Volume Laterality Blood specimen 07/09/2017 11:01 7 (specimen) PM EST 11:01 PM EST Yuan Webber MD POINT OF CARE TEST ORDERABLE S Performing Organization Address City/State/ZIP [place] [address] POCT Glucose (07/09/2017 10:05 PM EST) athologist Signature POC Glucose 144 65 - 199 [place] ZHAORYAN mg/dL [facility] Comment: Supplemental ranges: <140 mg/dL before meals <180 mg/dL all other times of the day Specimen Anatomical Collection Method Collection Time Receive d Time (Source) Location / / Volume Laterality Blood specimen 07/09/2017 10:05 7 (specimen) PM EST 10:05 PM EST Yuan Webber MD POINT OF CARE TEST ORDERABLE S Performing Organization Address City/State/ZIP Code Phon e Number [address] POCT Glucose (07/09/2017 9:31 PM EST) athologist Signature POC Glucose 121 65 - 199 [place] RY[place] mg/dL [facility] Comment: Supplemental ranges: <140 mg/dL before meals <180 mg/dL all other times of the day Specimen Anatomical Collection Method Collection Time Receive d Time (Source) Location / / Volume Laterality Blood specimen 07/09/2017 9:31 PM 017 9:31 (specimen) EST PM EST Yuan Webber MD POINT OF CARE TEST ORDERABLE S Performing Organization Address City/State/ZIP Code Phon e Number [address] POCT Glucose (07/09/2017 9:03 PM EST) athologist Signature POC Glucose 98 65 - 199 [place] mg/dL [facility] Comment: Supplemental ranges: <140 mg/dL before meals <180 mg/dL all other times of the day Specimen Anatomical Collection Method Collection Time Receive d Time (Source) Location / / Volume Laterality Blood specimen 07/09/2017 9:03 PM 017 9:03 (specimen) EST PM EST Yuan Webber MD POINT OF CARE TEST ORDERABLE S Performing Organization Address City/State/ZIP [place] [address] POCT Glucose (07/09/2017 8:09 PM EST) athologist Signature POC Glucose 117 65 - 199 [place] RY[place] mg/dL [facility] Comment: Supplemental ranges: <140 mg/dL before meals <180 mg/dL all other times of the day Specimen Anatomical Collection Method Collection Time Receive d Time (Source) Location / / Volume Laterality Blood specimen 07/09/2017 8:09 PM 017 8:09 (specimen) EST PM EST Yuan Webber MD POINT OF CARE TEST ORDERABLE S Performing Organization Address City/State/ZIP [place] [address] POCT Glucose (07/09/2017 5:40 PM EST) athologist Signature POC Glucose 155 65 - 199 [place] R[place] mg/dL [facility] Comment: Supplemental ranges: <140 mg/dL before meals <180 mg/dL all other times of the day Specimen Anatomical Collection Method Collection Time Receive d Time (Source) Location / / Volume Laterality Blood specimen 07/09/2017 5:40 PM 017 5:40 (specimen) EST PM EST Yuan Webber MD POINT OF CARE TEST ORDERABLE S Performing Organization Address City/State/ZIP [place] [address] POCT Glucose (07/09/2017 4:24 PM EST) athologist Signature POC Glucose 164 65 - 199 [place] RY[place] mg/dL [facility] Comment: Supplemental ranges: <140 mg/dL before meals <180 mg/dL all other times of the day Specimen Anatomical Collection Method Collection Time Receive d Time (Source) Location / / Volume Laterality Blood specimen 07/09/2017 4:24 PM 017 4:24 (specimen) EST PM EST Yuan Webber MD POINT OF CARE TEST ORDERABLE S Performing Organization Address City/State/ZIP [place] [address] POCT Glucose (07/09/2017 3:19 PM EST) athologist Signature POC Glucose 166 65 - 199 [place] R[place] mg/dL [facility] Comment: Supplemental ranges: <140 mg/dL before meals <180 mg/dL all other times of the day Specimen Anatomical Collection Method Collection Time Receive d Time (Source) Location / / Volume Laterality Blood specimen 07/09/2017 3:19 PM 017 3:19 (specimen) EST PM EST Yuan Webber MD POINT OF CARE TEST ORDERABLE S Performing Organization Address City/State/ZIP [place] [address] POCT Glucose (07/09/2017 2:26 PM EST) athologist Signature POC Glucose 179 65 - 199 [place] mg/dL [facility] Comment: Supplemental ranges: <140 mg/dL before meals <180 mg/dL all other times of the day Specimen Anatomical Collection Method Collection Time Receive d Time (Source) Location / / Volume Laterality Blood specimen 07/09/2017 2:26 PM 017 2:26 (specimen) EST PM EST Yuan Webber MD POINT OF CARE TEST ORDERABLE S Performing Organization Address City/State/ZIP [place] [address] (ABNORMAL) POCT Glucose (07/09/2017 1:29 PM EST) athologist Signature POC Glucose 210 (H) 65 - 199 [place] R[place] mg/dL [facility] Comment: Supplemental ranges: <140 mg/dL before meals <180 mg/dL all other times of the day Specimen Anatomical Collection Method Collection Time Receive d Time (Source) Location / / Volume Laterality Blood specimen 07/09/2017 1:29 PM 017 1:29 (specimen) EST PM EST Yuan Webber MD POINT OF CARE TEST ORDERABLE S Performing Organization Address City/State/ZIP Code Phon e Number [address] POCT Glucose (07/09/2017 12:20 PM EST) P athologist Signature POC Glucose 172 65 - 199 [place] R[place] mg/dL [facility] Comment: Supplemental ranges: <140 mg/dL before meals <180 mg/dL all other times of the day Specimen Anatomical Collection Method Collection Time Receive d Time (Source) Location / / Volume Laterality Blood specimen 07/09/2017 12:20 7 (specimen) PM EST 12:20 PM EST Yuan Webber MD POINT OF CARE TEST ORDERABLE S Performing Organization Address City/State/ZIP Code Phon e Number [address] POCT Glucose (07/09/2017 11:24 AM EST) P athologist Signature POC Glucose 156 65 - 199 [facility] Comment: Supplemental ranges: <140 mg/dL before meals <180 mg/dL all other times of the day Specimen Anatomical Collection Method Collection Time Receive d Time (Source) Location / / Volume Laterality Blood specimen 07/09/2017 11:24 7 (specimen) AM EST 11:24 AM EST Yuan Webber MD POINT OF CARE TEST ORDERABLE S Performing Organization Address City/State/ZIP [place] [address] POCT Glucose (07/09/2017 11:11 AM EST) P athologist Signature POC Glucose 172 65 - 199 [facility] mg/dL [facility] Comment: Supplemental ranges: <140 mg/dL before meals <180 mg/dL all other times of the day Specimen Anatomical Collection Method Collection Time Receive d Time (Source) Location / / Volume Laterality Blood specimen 07/09/2017 11:11 7 (specimen) AM EST 11:11 AM EST Yuan Webber MD POINT OF CARE TEST ORDERABLE S Performing Organization Address City/State/ZIP Code Phon e Number [address] POCT Glucose (07/09/2017 10:08 AM EST) P athologist Signature POC Glucose 176 65 - 199 [facility] mg/dL [facility] Comment: Supplemental ranges: <140 mg/dL before meals <180 mg/dL all other times of the day Specimen Anatomical Collection Method Collection Time Receive d Time (Source) Location / / Volume Laterality Blood specimen 07/09/2017 10:08 7 (specimen) AM EST 10:08 AM EST Yuan Webber MD POINT OF CARE TEST ORDERABLE S Performing Organization Address City/[facility]/ZIP Code Phon e Number [address] POCT Glucose (07/09/2017 8:02 AM EST) P athologist Signature POC Glucose 178 65 - 199 [facility] mg/dL [facility] Comment: Supplemental ranges: <140 mg/dL before meals <180 mg/dL all other times of the day Specimen Anatomical Collection Method Collection Time Receive d Time (Source) Location / / Volume Laterality Blood specimen 07/09/2017 8:02 AM 017 8:02 (specimen) EST AM EST Yuan Webber MD POINT OF CARE TEST ORDERABLE S Performing Organization Address City/State/ZIP [place] [address] (ABNORMAL) BLOOD GAS 2 ARTERIAL (07/09/2017 5:37 AM EST) Analysis Performed At Patho logist Time Signature pH Art 7.36 7.35 - [facility] 7.45 [facility] LABORATORY pCO2 Art 38 35 - 45 [facility] LABORATORY pO2 Art 79 (L) 85 - 104 [facility] LABORATORY HCO3 Art 20.9 20.0 - [facility] 26.0 [facility] mmol/L HOSPITAL LABORATORY BE Art -4.6 (L) -3.0 - 3.0 [facility] mmol/L [facility] LAB[facility]ATORY Hgb Blood Gas 10.5 (L) 13.7 - [facility] 16.5 gm/dL [facility] LABORATORY O2HB Art 93.8 (L) 94.0 - [facility] 97.0 % [facility] LABORATORY COHB Art 0.3 % [facility] LAB[facility] Comment: Nonsmokers: 0.5-1.5% COHB Smokers: Variable, but usually less than 10% Toxic: 20-30% COHB Lethal: Greater than 60% COHB METHB Art 0.6 <=1.5 % [facility] LABORATORY Na Whole Blood 141 135 - 145 mmol/L [facility] K Whole Blood 4.5 3.5 - 5.0 mmol/L [facility] Comment: Please note: Patients with WBC >100,000 may have falsely elevated Potassium levels. Contact the Clinical Chemistry L aboratory if there are any questions. ICa Whole Blood 1.01 (L) 1.15 - 1.33 mmol/L [facility] LAB[facility] Comment: Note: ??Total bilirubin higher than 20 m g/dL may lead to falsely low ionized calcium. CL Whole Blood 113 (H) 98 - 107 mmol/L [facility] LABORATORY Gluc Whole Bld 175 65 - 199 mg/dL [facility] LAB[facility]ORY Comment: Diabetes: >=200 mg/dL plus symp toms. Lactate WB 1.0 0.5 - 2.2 mmol/L [facility] LABORATORY FIO2 Art 40 % [facility] LABORATORY PF Ratio Art 198 [facility] LABORATORY Specimen Anatomical Collection Method Collection Time Receive d Time (Source) Location / / Volume Laterality Blood specimen 07/09/2017 5:37 AM 017 5:37 (specimen) EST AM EST Yuan Webber MD CHEMISTRY ORDERABLES Performing Organization Address City/State/[place] [address] POCT Glucose (07/09/2017 3:27 AM EST) athologist Signature POC Glucose 192 65 - 199 [facility] mg/dL [facility] LAB[facility]ATORY Comment: Supplemental ranges: <140 mg/dL before meals <180 mg/dL all other times of the day Specimen Anatomical Collection Method Collection Time Receive d Time (Source) Location / / Volume Laterality Blood specimen 07/09/2017 3:27 AM 017 3:27 (specimen) EST AM EST Yuan Webber MD POINT OF CARE TEST ORDERABLE S Performing Organization Address City/State/[place] [address] HOSPITAL LABORATORY Drive (ABNORMAL) Basic Metabolic Panel (non-fasting) (07/09/2017 2:30 AM EST) athologist Signature Glucose Lvl 179 65 - 199 [facility] mg/dL [facility]ORY Comment: Diabetes: >=200 mg/dL plus symp toms BUN 17 10 - 20 mg/dL [facility] Creatinine 1.34 0.80 - 1.50 mg/dL [facility] [...] Chloride 111 (H) 98 - 107 mmol/L [facility] CO2 21 (L) 22 - 31 mmol/L [facility] [...] or in patients with acute kidney failure. [email or web address] Specimen Anatomical Collection Method Collection Time Receive d Time (Source) Location / / Volume Laterality Blood specimen Venous Draw / 07/09/2017 2:30 AM 2016 2:42 (specimen) Unknown EST AM EST Resulting Agency Comment Spec In Lab Yuan Webber MD CHEMISTRY ORDERABLES Performing Organization Address City/[facility] [place] [address] (ABNORMAL) Potassium (07/09/2017 2:30 AM EST) P athologist Signature Potassium 5.1 (H) 3.5 - 5.0 [facility] mmol/L [facility] Comment: Please note: ??Patients with WBC [...] Webber MD CHEMISTRY ORDERABLES Performing Organization Address [facility] [place] [address] (ABNORMAL) Hemogram (07/09/2017 2:30 AM EST) Analysis Performed At Patho logist Time Signature WBC 12.5 (H) 4.0 - 9.5 [facility] RYAN x10(3)/[facility] LABORATORY RBC 3.38 (L) 4.58 - [place] RYAN 5.54 [facility] x10(6)/[facility] LABORATORY Hemoglobin 10.1 (L) 13.7 - [place]ALINA RYAN 16.5 gm/dL [facility] Hematocrit 30.3 (L) 40.5 - KATALINA RYAN 48.5 % [facility] MCV 89.6 82.9 - KATALINA DAVIS 93.1 [facility] LABORATORY MCH 29.9 27.5 - KATALINA DAVIS 32.1 pg [facility] MCHC 33.3 32.0 - KATALINA DAVIS 35.7 gm/dL [facility] Platelets 127 (L) 145 - 357 [place] x10(3)/[facility] LABORATORY RDWSD 49.3 (H) 36.0 - KATALINA DAVIS 45.0 [facility] LABORATORY RDWCV 15.2 (H) 11.4 - KATALINA DAVIS 13.8 % [facility] MPV 9.9 7.6 - 12.9 KATALINA DAVIS [facility] LABORATORY nRBC % Auto 0.0 % [facility] nRBC Abs Auto 0.000 0.000 - KATALINA DAVIS 0.000 [facility] x10(3)/[facility] LABORATORY Specimen Anatomical Collection Method Collection Time Receive d Time (Source) Location / / Volume Laterality Blood specimen 07/09/2017 2:30 AM 017 2:41 (specimen) EST AM EST Resulting Agency Comment Spec In Lab Yuan Webber MD HEMATOLOGY ORDERABLES Performing Organization Address City/[facility]/ZIP Code Phon e Number [address] POCT Glucose (07/09/2017 2:10 AM EST) athologist Signature POC Glucose 169 65 - 199 [facility] mg/dL [facility] Comment: Supplemental ranges: <140 mg/dL before meals <180 mg/dL all other times of the day Specimen Anatomical Collection Method Collection Time Receive d Time (Source) Location / / Volume Laterality Blood specimen 07/09/2017 2:10 AM 017 2:10 (specimen) EST AM EST Yuan Webber MD POINT OF CARE TEST ORDERABLE S Performing Organization Address City/[facility] Code Phon e Number [address] POCT Glucose (07/09/2017 1:01 AM EST) athologist Signature POC Glucose 173 65 - 199 [facility] mg/dL [facility] Comment: Supplemental ranges: <140 mg/dL before meals <180 mg/dL all other times of the day Specimen Anatomical Collection Method Collection Time Receive d Time (Source) Location / / Volume Laterality Blood specimen 07/09/2017 1:01 AM 017 1:01 (specimen) EST AM EST Yuan Webber MD POINT OF CARE TEST ORDERABLE S Performing Organization Address City/[facility]/ZIP [place] [address] Blood culture (07/09/2017 12:40 AM EST) [facility] gist Method Time Signature Blood Culture No growth KATALINA DAVIS at 5 days. [facility] Specimen Anatomical Collection Method Collection Time Receive d Time (Source) Location / / Volume Laterality Blood specimen STRUCTURE OF RIGHT 07/09/2017 12:40 3:58 (specimen) UPPER LIMB / AM EST AM EST Unknown Resulting Agency Comment Spec In Lab Yuan Webber MD MICROBIOLOGY - BLOOD ORDERAB LES Performing Organization Address City/[facility]/ZIP [place] [address] Blood culture (07/09/2017 12:30 AM EST) [facility] gist Method Time Signature Blood Culture No growth KATALINA DAVIS at 5 days. [facility] Specimen Anatomical Collection Method Collection Time Receive d Time (Source) Location / / Volume Laterality Blood specimen STRUCTURE OF LEFT 07/09/2017 12:30 1211/2016 3:59 (specimen) UPPER LIMB / AM EST AM EST Unknown Resulting Agency Comment Spec In Lab Yuan Webber MD MICROBIOLOGY - BLOOD ORDERAB LES Performing Organization Address City/[facility]/ZIP [place] [address] (ABNORMAL) Urinalysis Microscopic Exam (07/09/2017 12:05 AM EST) Analysis Performed At Patho logist Time Signature RBC UA 32 (H) 0 - 3 /HPF [facility] WBC UA 5 (H) 0 - 3 /HPF [facility] Squam Epith UA <1 <=4 /HPF [facility] Hyaline Cast 17 (H) 0 - 2 /LPF [facility] Gran Cast UA 1 (H) <=0 /LPF [facility] Uric Ac Bianca Rare (A) None /HPF [facility] Specimen (Source) Anatomical Collection Method Collection Time Re ceived Time Location / / Volume Laterality Urine specimen 07/09/2017 12: 7 obtained via AM EST 12:39 AM EST indwelling urinary catheter (specimen) Resulting Agency Comment Spec In Lab Yuan Webber MD URINE ORDERABLES Performing Organization Address City/State/[place] [address] (ABNORMAL) Urinalysis with reflex Culture (07/09/2017 12:05 AM EST) [facility] gist Method Time Signature Glucose UA Negative Negative [facility] mg/dL [facility] Protein UA 30 (A) Negative [facility] mg/dL [facility] Bilirubin UA Negative Negative [facility] mg/dL [facility] Comment: Clinical correlation required for positi ve Urine Bilirubin results as false positive may occur with some drugs and d rug related products. If a false positive is suspected a serum total bili yeager should be considered if clinically indicated. Urobilinogen UA Normal Normal mg/dL [facility] pH UA 5.0 5.0 - 8.0 [facility] Blood UA Moderate (A) Negative mg/dL [facility] Ketones UA Negative Negative mg/dL [facility] Nitrite UA Negative Negative [facility] Leukocytes UA Negative Negative [facility] LABORATORY Appearance UA Hazy (A) Clear [facility] Spec Matthews UA 1.025 1.002 - 1.030 [facility] Color UA Yellow Yellow [facility] Culture Reflexed No [facility] Specimen (Source) Anatomical Collection Method Collection Time Re ceived Time Location / / Volume Laterality Urine specimen 07/09/2017 12:05 12/15/201 7 obtained via AM EST 12:39 AM EST indwelling urinary catheter (specimen) Resulting Agency Comment Spec In Lab Yuan Webber MD URINE ORDERABLES Performing Organization Address City/[facility]/ZIP Code Phon e Number [address] POCT Glucose (07/08/2017 11:01 PM EST) P athologist Signature POC Glucose 191 65 - 199 [facility] mg/dL [facility] Comment: Supplemental ranges: <140 mg/dL before meals <180 mg/dL all other times of the day Specimen Anatomical Collection Method Collection Time Receive d Time (Source) Location / / Volume Laterality Blood specimen 07/08/2017 11:01 7 (specimen) PM EST 11:01 PM EST Yuan Webber MD POINT OF CARE TEST ORDERABLE S Performing Organization Address [facility]/ZIP Code Phon e Number [address] POCT Glucose (07/08/2017 10:04 PM EST) P athologist Signature POC Glucose 198 65 - 199 [facility] mg/dL [facility] Comment: Supplemental ranges: <140 mg/dL before meals <180 mg/dL all other times of the day Specimen Anatomical Collection Method Collection Time Receive d Time (Source) Location / / Volume Laterality Blood specimen 07/08/2017 10:04 7 (specimen) PM EST 10:04 PM EST Yuan Webber MD POINT OF CARE TEST ORDERABLE S Performing Organization Address City/[facility]/ZIP Code Phon e Number [address] Prepare Albumin 5% in 250 mL (07/08/2017 8:49 PM EST) P athologist Signature Dispensed? Yes [facility] Specimen Anatomical Collection Method Collection Time Receive d Time (Source) Location / / Volume Laterality Blood specimen No Charge / 07/08/2017 8:49 PM 017 8:51 (specimen) Unknown EST PM EST Resulting Agency Comment Spec In Lab [facility] ORDERABLES Performing Organization Address City/State/ZIP [place] [address] POCT Glucose (07/08/2017 8:28 PM EST) athologist Signature POC Glucose 195 65 - 199 KATALINA ZHAORYAN mg/dL [facility] Comment: Supplemental ranges: <140 mg/dL before meals <180 mg/dL all other times of the day Specimen Anatomical Collection Method Collection Time Receive d Time (Source) Location / / Volume Laterality Blood specimen 07/08/2017 8:28 PM 017 8:28 (specimen) EST PM EST Yuan Webber MD POINT OF CARE TEST ORDERABLE S Performing Organization Address City/[facility]/ZIP [place] [address] (ABNORMAL) POCT Glucose (07/08/2017 7:13 PM EST) athologist Signature POC Glucose 220 (H) 65 - 199 KATALINA ZHAORYAN mg/dL [facility] Comment: Supplemental ranges: <140 mg/dL before meals <180 mg/dL all other times of the day Specimen Anatomical Collection Method Collection Time Receive d Time (Source) Location / / Volume Laterality Blood specimen 07/08/2017 7:13 PM 017 7:13 (specimen) EST PM EST Yuan Webber MD POINT OF CARE TEST ORDERABLE S Performing Organization Address City/[facility]/ZIP [place] [address] POCT Glucose (07/08/2017 5:04 PM EST) athologist Signature POC Glucose 147 65 - 199 KATALINA ZHAORYAN mg/dL [facility] Comment: Supplemental ranges: <140 mg/dL before meals <180 mg/dL all other times of the day Specimen Anatomical Collection Method Collection Time Receive d Time (Source) Location / / Volume Laterality Blood specimen 07/08/2017 5:04 PM 017 5:04 (specimen) EST PM EST Yuan Webber MD POINT OF CARE TEST ORDERABLE S Performing Organization Address City/State/[place] [address] (ABNORMAL) BLOOD GAS 2 ARTERIAL (07/08/2017 4:13 PM EST) Analysis Performed At Patho logist Time Signature pH Art 7.38 7.35 - [facility] 7.45 [facility] pCO2 Art 36 35 - 45 [facility] mmHg [facility] pO2 Art 91 85 - 104 [facility] mmHg [facility] HCO3 Art 20.9 20.0 - [facility] 26.0 [facility] mmol/L [facility] LABORATORY BE Art -4.2 (L) -3.0 - 3.0 [facility] mmol/L [facility] Hgb Blood Gas 11.7 (L) 13.7 - [facility] 16.5 gm/dL [facility] O2HB Art 95.1 94.0 - [facility] 97.0 % [facility] COHB Art 0.6 % [facility] Comment: Nonsmokers: 0.5-1.5% COHB Smokers: Variable, but usually less than 10% Toxic: 20-30% COHB Lethal: Greater than 60% COHB METHB Art 0.6 <=1.5 % [facility] Na Whole Blood 139 135 - 145 mmol/L [facility] K Whole Blood 4.2 3.5 - 5.0 mmol/L [facility] Comment: Please note: Patients with WBC >100,000 may have falsely elevated Potassium levels. Contact the Clinical Chemistry L aboratory if there are any questions. ICa Whole Blood 1.05 (L) 1.15 - 1.33 mmol/L [facility] Comment: Note: ??Total bilirubin higher than 20 m g/dL may lead to falsely low ionized calcium. CL Whole Blood 110 (H) 98 - 107 mmol/L [facility] Gluc Whole Bld 155 65 - 199 mg/dL [facility] Comment: Diabetes: >=200 mg/dL plus symp toms. Lactate WB 1.4 0.5 - 2.2 mmol/L [facility] FIO2 Art 40 % [facility] PF Ratio Art 228 [facility] LAB[facility]ORY Specimen Anatomical Collection Method Collection Time Receive d Time (Source) Location / / Volume Laterality Blood specimen 07/08/2017 4:13 PM 017 4:13 (specimen) EST PM EST Yuan Webber MD CHEMISTRY ORDERABLES Performing Organization Address City/[facility]/ZIP Code Phon e Number [address] POCT Glucose (07/08/2017 4:01 PM EST) athologist Signature POC Glucose 148 65 - 199 [facility] Comment: Supplemental ranges: <140 mg/dL before meals <180 mg/dL all other times of the day Specimen Anatomical Collection Method Collection Time Receive d Time (Source) Location / / Volume Laterality Blood specimen 07/08/2017 4:01 PM 017 4:01 (specimen) EST PM EST Yuan Webber MD POINT OF CARE TEST ORDERABLE S Performing Organization Address City/State/ZIP Code Phon e Number [address] POCT Glucose (07/08/2017 3:21 PM EST) athologist Signature POC Glucose 118 65 - 199 [facility] mg/dL [facility] Comment: Supplemental ranges: <140 mg/dL before meals <180 mg/dL all other times of the day Specimen Anatomical Collection Method Collection Time Receive d Time (Source) Location / / Volume Laterality Blood specimen 07/08/2017 3:21 PM 017 3:21 (specimen) EST PM EST Yuan Webber MD POINT OF CARE TEST ORDERABLE S Performing Organization Address City/State/ZIP Code Phon e Number [address] POCT Glucose (07/08/2017 2:01 PM EST) athologist Signature POC Glucose 129 65 - 199 [facility] mg/dL [facility] Comment: Supplemental ranges: <140 mg/dL before meals <180 mg/dL all other times of the day Specimen Anatomical Collection Method Collection Time Receive d Time (Source) Location / / Volume Laterality Blood specimen 07/08/2017 2:01 PM 017 2:01 (specimen) EST PM EST Yuan Webber MD POINT OF CARE TEST ORDERABLE S Performing Organization Address City/State/ZIP [place] [address] POCT Glucose (07/08/2017 11:53 AM EST) athologist Signature POC Glucose 156 65 - 199 KATALINA RYAN mg/dL [facility] Comment: Supplemental ranges: <140 mg/dL before meals <180 mg/dL all other times of the day Specimen Anatomical Collection Method Collection Time Receive d Time (Source) Location / / Volume Laterality Blood specimen 07/08/2017 11:53 7 (specimen) AM EST 11:53 AM EST Yuan Webber MD POINT OF CARE TEST ORDERABLE S Performing Organization Address City/State/ZIP [place] [address] POCT Glucose (07/08/2017 11:04 AM EST) athologist Signature POC Glucose 181 65 - 199 KATALINA RYAN mg/dL [facility] Comment: Supplemental ranges: <140 mg/dL before meals <180 mg/dL all other times of the day Specimen Anatomical Collection Method Collection Time Receive d Time (Source) Location / / Volume Laterality Blood specimen 07/08/2017 11:04 7 (specimen) AM EST 11:04 AM EST Yuan Webber MD POINT OF CARE TEST ORDERABLE S Performing Organization Address City/State/ZIP [place] [address] (ABNORMAL) POCT Glucose (07/08/2017 9:24 AM EST) athologist Signature POC Glucose 203 (H) 65 - 199 KATALINA RYAN mg/dL [facility] Comment: Supplemental ranges: <140 mg/dL before meals <180 mg/dL all other times of the day Specimen Anatomical Collection Method Collection Time Receive d Time (Source) Location / / Volume Laterality Blood specimen 07/08/2017 9:24 AM 017 9:24 (specimen) EST AM EST Yuan Webber MD POINT OF CARE TEST ORDERABLE S Performing Organization Address City/[facility]/ZIP [place] [address] APTT (07/08/2017 8:40 AM EST) P athologist Signature PTT 33 25 - 35 sec [facility] [...] Address City/State/ZIP [place] [address] (ABNORMAL) Prothrombin Time (07/08/2017 [...] Address City/State/ZIP [place] [address] (ABNORMAL) POCT Glucose (07/08/2017 7:38 AM EST) athologist Signature POC Glucose 232 (H) 65 - 199 [facility] mg/dL [facility] Comment: Supplemental ranges: <140 mg/dL before meals <180 mg/dL all other times of the day Specimen Anatomical Collection Method Collection Time Receive d Time (Source) Location / / Volume Laterality Blood specimen 07/08/2017 7:38 AM 017 7:38 (specimen) EST AM EST Yuan Webber MD POINT OF CARE TEST ORDERABLE S Performing Organization Address City/[facility]/ZIP [place] [address] (ABNORMAL) POCT Glucose (07/08/2017 7:07 AM EST) athologist Signature POC Glucose 234 (H) 65 - 199 [facility] mg/dL [facility] Comment: Supplemental ranges: <140 mg/dL before meals <180 mg/dL all other times of the day Specimen Anatomical Collection Method Collection Time Receive d Time (Source) Location / / Volume Laterality Blood specimen 07/08/2017 7:07 AM 017 7:07 (specimen) EST AM EST Yuan Webber MD POINT OF CARE TEST ORDERABLE S Performing Organization Address City/State/ZIP [place] [address] (ABNORMAL) POCT Glucose (07/08/2017 6:04 AM EST) athologist Signature POC Glucose 225 (H) 65 - 199 [facility] mg/dL [facility] Comment: Supplemental ranges: <140 mg/dL before meals <180 mg/dL all other times of the day Specimen Anatomical Collection Method Collection Time Receive d Time (Source) Location / / Volume Laterality Blood specimen 07/08/2017 6:04 AM 017 6:04 (specimen) EST AM EST Yuan Webber MD POINT OF CARE TEST ORDERABLE S Performing Organization Address City/State/ZIP [place] [address] (ABNORMAL) POCT Glucose (07/08/2017 5:31 AM EST) P athologist Signature POC Glucose 216 (H) 65 - 199 [facility] mg/dL [facility] Comment: Supplemental ranges: <140 mg/dL before meals <180 mg/dL all other times of the day Specimen Anatomical Collection Method Collection Time Receive d Time (Source) Location / / Volume Laterality Blood specimen 07/08/2017 5:31 AM 017 5:31 (specimen) EST AM EST Yuan Webber MD POINT OF CARE TEST ORDERABLE S Performing Organization Address City/State/ZIP [place] [address] (ABNORMAL) POCT Glucose (07/08/2017 4:52 AM EST) P athologist Signature POC Glucose 257 (H) 65 - 199 [facility] mg/dL [facility] Comment: Supplemental ranges: <140 mg/dL before meals <180 mg/dL all other times of the day Specimen Anatomical Collection Method Collection Time Receive d Time (Source) Location / / Volume Laterality Blood specimen 07/08/2017 4:52 AM 017 4:52 (specimen) EST AM EST Daphne Shahid MD POINT OF CARE TEST ORDERABLE S Performing Organization Address City/State/ZIP [place] [address] (ABNORMAL) BLOOD GAS 2 ARTERIAL (07/08/2017 4:04 AM EST) Analysis Performed At Patho logist Time Signature pH Art 7.30 (L) 7.35 - [facility] 7.45 [facility] LAB[facility]ORY pCO2 Art 41 35 - 45 [facility] LABORATORY pO2 Art 83 (L) 85 - 104 [facility] LABORATORY HCO3 Art 19.6 (L) 20.0 - [facility] 26.0 [facility] mmol/L [facility] LABORATORY BE Art -6.8 (L) -3.0 - 3.0 [facility] mmol/L [facility]ORY Hgb Blood Gas 12.2 (L) 13.7 - [facility] 16.5 gm/dL [facility] LABORATORY O2HB Art 93.5 (L) 94.0 - [facility] 97.0 % [facility] LAB[facility]ORY COHB Art 0.4 % [facility] Comment: Nonsmokers: 0.5-1.5% COHB Smokers: Variable, but usually less than 10% Toxic: 20-30% COHB Lethal: Greater than 60% COHB METHB Art 0.8 <=1.5 % [facility] Na Whole Blood 138 135 - 145 mmol/L [facility] K Whole Blood 4.4 3.5 - 5.0 mmol/L [facility] Comment: Please note: Patients with WBC >100,000 may have falsely elevated Potassium levels. Contact the Clinical Chemistry L aboratory if there are any questions. ICa Whole Blood 1.05 (L) 1.15 - 1.33 mmol/L [facility] Comment: Note: ??Total bilirubin higher than 20 m g/dL may lead to falsely low ionized calcium. CL Whole Blood 107 98 - 107 mmol/L [facility] Gluc Whole Bld 274 (H) 65 - 199 mg/dL [facility] Comment: Diabetes: >=200 mg/dL plus symp toms. Lactate WB 4.4 (Critical) 0.5 - 2.2 mmol/L [facility] Comment: Noted by instrument repair technician. FIO2 Art 40 % [facility] PF Ratio Art 208 [facility] Specimen Anatomical Collection Method Collection Time Receive d Time (Source) Location / / Volume Laterality Blood specimen 07/08/2017 4:04 AM 017 4:04 (specimen) EST AM EST Daphne Shahid MD CHEMISTRY ORDERABLES Performing Organization Address City/State/[place] [address] Scan, Peripheral Blood (07/08/2017 4:00 AM EST) P athologist Signature Plat Estimate Normal [facility] RBC Morphology Normal [facility] Specimen Anatomical Collection Method Collection Time Receive d Time (Source) Location / / Volume Laterality Blood specimen 07/08/2017 4:00 AM 017 4:09 (specimen) EST AM EST Resulting Agency Comment Spec In Lab Yuan Webber MD HEMATOLOGY ORDERABLES Performing Organization Address City/State/[place] [address] (ABNORMAL) Differential, Automated (07/08/2017 4:00 AM EST) Patholo gist Method Time Signature Neutrophils % 85.4 % [facility] Neutr Abs (ANC) 16.07 (H) 1.70 - [facility] 6.10 [facility] x10(3)/[facility] LABORATORY Lymphocytes % 3.5 % [facility] Lymphocytes Abs 0.6 (L) 0.9 - 3.2 [facility] x10(3)/[facility] LABORATORY Monocytes % 10.4 % [facility] Monocyte Abs 2.0 (H) 0.3 - 0.9 [facility] x10(3)/[facility] LABORATORY Eosinophils % 0.0 % [facility] Eosinophils Abs 0.0 0.0 - 0.4 [facility] x10(3)/[facility] LABORATORY Basophils % 0.1 % [facility] Basophils Abs 0.0 0.0 - 0.1 [facility] x10(3)/[facility] LABORATORY Immature Gran % 0.60 % [facility] [...] Gran Abs 0.12 (H) 0.00 - 0.04 x10(3)/[facility] LABORATORY Specimen Anatomical Collection Method Collection Time Receive d Time (Source) Location / / Volume Laterality Blood specimen 07/08/2017 4:00 AM 017 4:09 (specimen) EST AM EST Resulting Agency Comment Spec In Lab Yuan Webber MD HEMATOLOGY ORDERABLES Performing Organization Address City/State/[place] [address] (ABNORMAL) Hemogram (07/08/2017 4:00 AM EST) Analysis Performed At Patho logist Time Signature WBC 18.8 (H) 4.0 - 9.5 [facility] LAB[facility]ATORY RBC 4.00 (L) 4.58 - [facility] 5.54 [facility] x10(6)/[facility] LABORATORY Hemoglobin 11.9 (L) 13.7 - [facility] 16.5 gm/dL [facility] Hematocrit 35.9 (L) 40.5 - [facility] 48.5 % [facility] LAB[facility]ATORY MCV 89.8 82.9 - [facility] 93.1 [facility] LABORATORY MCH 29.8 27.5 - [facility] RYAN 32.1 pg [facility] LABORATORY MCHC 33.1 32.0 - [facility] RYAN 35.7 gm/dL [facility]ORY Platelets 232 145 - 357 [facility] x10(3)/[facility] LABORATORY RDWSD 47.6 (H) 36.0 - [facility] RYAN 45.0 [facility] LABORATORY RDWCV 14.5 (H) 11.4 - [facility] RYAN 13.8 % [facility] LABORATORY MPV 9.5 7.6 - 12.9 [facility] nRBC % Auto 0.0 % [facility] nRBC Abs Auto 0.000 0.000 - [place] RYAN 0.000 [facility] x10(3)/[facility] LABORATORY Specimen Anatomical Collection Method Collection Time Receive d Time (Source) Location / / Volume Laterality Blood specimen 07/08/2017 4:00 AM 017 4:09 (specimen) EST AM EST Resulting Agency Comment Spec In Lab Yuan Webber MD HEMATOLOGY ORDERABLES Performing Organization Address City/[facility]/ZIP [place] [address] (ABNORMAL) Electrolytes panel (07/08/2017 4:00 AM EST) athologist [facility] Sodium 139 135 - 145 [facility] mmol/L [facility] Potassium 4.7 3.5 - 5.0 [facility] mmol/L [facility] Comment: result rechecked-JLK Please note: ??Patients with WBC >100,00 0 may have falsely elevated Potassium levels. ??For accurate Potassium quantif ication in these patients send serum separator tube (gold top) for subsequent determinations. ??Contact the Clinical Chemistry Laboratory if there are any qu estions. Chloride 104 98 - 107 mmol/L [facility] CO2 21 (L) 22 - 31 mmol/L [facility] Anion Gap 14 5 - 15 mmol/L [facility] Specimen Anatomical Collection Method Collection Time Receive d Time (Source) Location / / Volume Laterality Blood specimen 07/08/2017 4:00 AM 017 4:10 (specimen) EST AM EST Resulting Agency Comment Spec In Lab Yuan Webber MD CHEMISTRY ORDERABLES Performing Organization Address City/[facility]/ZIP [place] [address] (ABNORMAL) Cardiac Enzymes (LEB/CGP) (07/08/2017 4:00 AM EST) athologist [facility] Troponin-T 1.88 (H) 0.00 - [facility] 0.00 ng/mL [facility] Comment: The 99th percentile for Troponin [...] additional sample may be indicated. Reference: Third [place] Definition of Myocardial Infarction. Journal of the [place] [employer]iology 2012;60:1581-98 CK, Total 413 (H) 0 - 200 unit/L [facility] Comment: result rechecked-AYDIN Specimen Anatomical Collection Method Collection Time Receive d Time (Source) Location / / Volume Laterality Blood specimen 07/08/2017 4:00 AM 017 4:09 (specimen) EST AM EST Resulting Agency Comment Spec In Lab Yuan Webber MD CHEMISTRY ORDERABLES Performing Organization Address City/State/[place] [address] (ABNORMAL) Glucose, fasting (07/08/2017 4:00 AM EST) athologist Signature Glucose 287 (H) 65 - 99 [facility] Fasting mg/dL [facility] Comment: ?Fasting* Glucose Interpretive C riteria [...] Address City/State/Z[place] [address] (ABNORMAL) Creatinine (07/08/2017 4:00 AM EST) Analysis Performed At Patho logist Time Signature Creatinine 1.55 (H) 0.80 - [facility] 1.50 mg/dL [facility] Estimated GFR 44 (L) >=60 [facility] Comment: The reported eGFR should be multiplied b y 1.2 for patients. The MDRD is not an appropriate measure o f renal function for patients with body mass extremes or in patients with acute kidney failure. http://SimpleSite/DHnkdep http://SimpleSite/DHMCnkf Specimen Anatomical Collection Method Collection Time Receive d Time (Source) Location / / Volume Laterality Blood specimen 07/08/2017 4:00 AM 017 4:09 (specimen) EST AM EST Resulting Agency Comment Spec In Lab Yuan Webber MD CHEMISTRY ORDERABLES Performing Organization Address City/State/ZIP [place] [address] BUN (07/08/2017 4:00 AM EST) P athologist Signature BUN 16 10 - 20 [facility] mg/dL [facility] Specimen Anatomical Collection Method Collection Time Receive d Time (Source) Location / / Volume Laterality Blood specimen 07/08/2017 4:00 AM 017 4:09 (specimen) EST AM EST Resulting Agency Comment Spec In Lab Yuan Webber MD CHEMISTRY ORDERABLES Performing Organization Address City/[facility]/ZIP [place] [address] (ABNORMAL) POCT Glucose (07/08/2017 3:00 AM EST) P athologist Signature POC Glucose 273 (H) 65 - 199 [facility] mg/dL [facility] Comment: Supplemental ranges: <140 mg/dL before meals <180 mg/dL all other times of the day Specimen Anatomical Collection Method Collection Time Receive d Time (Source) Location / / Volume Laterality Blood specimen 07/08/2017 3:00 AM 017 3:00 (specimen) EST AM EST Daphne Shahid MD POINT OF CARE TEST ORDERABLE S Performing Organization Address City/State/Z[place] [address] (ABNORMAL) POCT Glucose (07/08/2017 1:57 AM EST) athologist Signature POC Glucose 288 (H) 65 - 199 [facility] mg/dL [facility] Comment: Supplemental ranges: <140 mg/dL before meals <180 mg/dL all other times of the day Specimen Anatomical Collection Method Collection Time Receive d Time (Source) Location / / Volume Laterality Blood specimen 07/08/2017 1:57 AM 017 1:57 (specimen) EST AM EST Daphne Shahid MD POINT OF CARE TEST ORDERABLE S Performing Organization Address City/State/Z[place] [address] (ABNORMAL) POCT Glucose (07/08/2017 1:01 AM EST) athologist Signature POC Glucose 315 (H) 65 - 199 [facility] mg/dL [facility] Comment: Supplemental ranges: <140 mg/dL before meals <180 mg/dL all other times of the day Specimen Anatomical Collection Method Collection Time Receive d Time (Source) Location / / Volume Laterality Blood specimen 07/08/2017 1:01 AM 017 1:01 (specimen) EST AM EST Daphne Shahid MD POINT OF CARE TEST ORDERABLE S Performing Organization Address City/State/Z[place] [address] (ABNORMAL) BLOOD GAS 2 ARTERIAL (07/08/2017 12:09 AM EST) athologist Signature pH Art 7.26 7.35 - [facility] (Critical) 7.45 [facility] Comment: Noted by instrument repair technician. pCO2 Art 41 35 - 45 mmHg [facility] pO2 Art 96 85 - 104 mmHg [facility] HCO3 Art 17.7 (L) 20.0 - 26.0 mmol/L [facility] BE Art -9.4 (L) -3.0 - 3.0 mmol/L [facility] Hgb Blood Gas 12.4 (L) 13.7 - 16.5 gm/dL [facility] O2HB Art 94.7 94.0 - 97.0 % [facility] COHB Art 0.2 % [facility] Comment: Nonsmokers: 0.5-1.5% COHB Smokers: Variable, but usually less than 10% Toxic: 20-30% COHB Lethal: Greater than 60% COHB METHB Art 0.6 <=1.5 % [facility] Na Whole Blood 141 135 - 145 mmol/L [facility] K Whole Blood 3.5 3.5 - 5.0 mmol/L [facility] Comment: Please note: Patients with WBC >100,000 may have falsely elevated Potassium levels. Contact the Clinical Chemistry L aboratory if there are any questions. ICa Whole Blood 1.03 (L) 1.15 - 1.33 mmol/L [facility] Comment: Note: ??Total bilirubin higher than 20 m g/dL may lead to falsely low ionized calcium. CL Whole Blood 109 (H) 98 - 107 mmol/L [facility] Gluc Whole Bld 315 (H) 65 - 199 mg/dL [facility] Comment: Diabetes: >=200 mg/dL plus symp toms. Lactate WB 7.6 (Critical) 0.5 - 2.2 mmol/L [facility] Comment: Noted by instrument repair technician. FIO2 Art 40 % [facility] PF Ratio Art 240 [facility] Specimen Anatomical Collection Method Collection Time Receive d Time (Source) Location / / Volume Laterality Blood specimen Arterial Draw / 07/08/2017 12:09 2016 5:31 (specimen) Unknown AM EST AM EST Resulting Agency Comment Spec In Lab Samy Maldonado MD CHEMISTRY ORDERABLES Performing Organization Address City/[facility]/ZIP [place] [address] (ABNORMAL) POCT Glucose (07/07/2017 10:56 PM EST) athologist Signature POC Glucose 292 (H) 65 - 199 [facility] mg/dL [facility] Comment: Supplemental ranges: <140 mg/dL before meals <180 mg/dL all other times of the day Specimen Anatomical Collection Method Collection Time Receive d Time (Source) Location / / Volume Laterality Blood specimen 07/07/2017 10:56 7 (specimen) PM EST 10:56 PM EST Daphne Shaihd MD POINT OF CARE TEST ORDERABLE S Performing Organization Address City/[facility]/ZIP [place] [address] (ABNORMAL) BLOOD GAS 2 ARTERIAL (07/07/2017 10:04 PM EST) athologist Signature pH Art 7.22 7.35 - [facility] (Critical) 7.45 [facility] Comment: Noted by instrument repair technician. pCO2 Art 42 35 - 45 mmHg [facility] pO2 Art 94 85 - 104 mmHg [facility] HCO3 Art 16.9 (L) 20.0 - 26.0 mmol/L [facility] BE Art -10.7 (L) -3.0 - 3.0 mmol/L [facility] Hgb Blood Gas 13.0 (L) 13.7 - 16.5 gm/dL [facility] O2HB Art 93.8 (L) 94.0 - 97.0 % [facility] COHB Art 0.7 % [facility] Comment: Nonsmokers: 0.5-1.5% COHB Smokers: Variable, but usually less than 10% Toxic: 20-30% COHB Lethal: Greater than 60% COHB METHB Art 0.7 <=1.5 % [facility] Na Whole Blood 140 135 - 145 mmol/L [facility] K Whole Blood 3.3 (L) 3.5 - 5.0 mmol/L [facility] Comment: Please note: Patients with WBC >100,000 may have falsely elevated Potassium levels. Contact the Clinical Chemistry L aboratory if there are any questions. ICa Whole Blood 1.07 (L) 1.15 - 1.33 mmol/L [facility] Comment: Note: ??Total bilirubin higher than 20 m g/dL may lead to falsely low ionized calcium. CL Whole Blood 107 98 - 107 mmol/L [facility] Gluc Whole Bld 304 (H) 65 - 199 mg/dL [facility] Comment: Diabetes: >=200 mg/dL plus symp toms. Lactate WB 8.2 (Critical) 0.5 - 2.2 mmol/L [facility] Comment: Noted by instrument repair technician. FIO2 Art 40 % [facility] PF Ratio Art 235 [facility] Specimen Anatomical Collection Method Collection Time Receive d Time (Source) Location / / Volume Laterality Blood specimen 07/07/2017 10:04 7 (specimen) PM EST 10:04 PM EST Daphne Shahid MD CHEMISTRY ORDERABLES Performing Organization Address City/State/[place] [address] (ABNORMAL) Hemoglobin (07/07/2017 10:00 PM EST) P athologist Signature Hemoglobin 12.8 (L) 13.7 - [facility] 16.5 gm/dL [facility] Specimen Anatomical Collection Method Collection Time Receive d Time (Source) Location / / Volume Laterality Blood specimen 07/07/2017 10:00 7 (specimen) PM EST 10:13 PM EST Resulting Agency Comment Spec In Lab Yuan Webber MD HEMATOLOGY ORDERABLES Performing Organization Address City/[facility]/ZIP [place] [address] (ABNORMAL) Potassium (07/07/2017 10:00 PM EST) athologist Signature Potassium 3.4 (L) 3.5 - 5.0 [facility] mmol/L [facility] Comment: Please note: ??Patients with WBC [...] Webber MD CHEMISTRY ORDERABLES Performing Organization Address City/[facility]/ZIP [place] [address] (ABNORMAL) POCT Glucose (07/07/2017 8:49 PM EST) athologist Signature POC Glucose 241 (H) 65 - 199 [facility] mg/dL [facility] Comment: Supplemental ranges: <140 mg/dL before meals <180 mg/dL all other times of the day Specimen Anatomical Collection Method Collection Time Receive d Time (Source) Location / / Volume Laterality Blood specimen 07/07/2017 8:49 PM 017 8:49 (specimen) EST PM EST Daphne Shahid MD POINT OF CARE TEST ORDERABLE S Performing Organization Address City/[facility]/ZIP [place] [address] Prepare Albumin 5% in 250 mL (07/07/2017 8:03 PM EST) athologist Signature Dispensed? Yes [facility] Specimen Anatomical Collection Method Collection Time Receive d Time (Source) Location / / Volume Laterality Blood specimen No Charge / 07/07/2017 8:03 PM 017 8:04 (specimen) Unknown EST PM EST Resulting Agency Comment Spec In Lab Michael BROWN BLOOD BANK ORDERABLES Performing Organization Address City/State/[place] [address] EKG 12 Lead (07/07/2017 7:17 PM EST) Component Value Ref Range Test Analysis Performed Pathologis t Method Time At Signature Ventricular rate 75 BPM MUSE SYSTEM Atrial Rate 75 BPM MUSE SYSTEM P-R Interval 168 ms MUSE SYSTEM QRS Duration 104 ms MUSE SYSTEM Q-T Interval 462 ms MUSE SYSTEM QTC Calculated 515 ms MUSE SYSTEM (Bezet) Calculated P [place] 52 degrees MUSE SYSTEM Calculated R [place] -40 degrees MUSE SYSTEM Calculated T [place] 39 degrees MUSE SYSTEM INTERPRETATION Normal sinus [...] athologist Signature pH Art 7.21 7.35 - [facility] (Critical) 7.45 [facility] Comment: Noted by instrument repair technician. pCO2 Art 50 (H) 35 - 45 mmHg [facility] pO2 Art 238 (H) 85 - 104 mmHg [facility] HCO3 Art 19.8 (L) 20.0 - 26.0 mmol/L [facility] BE Art -8.1 (L) -3.0 - 3.0 mmol/L [facility] Hgb Blood Gas 12.8 (L) 13.7 - 16.5 gm/dL [facility] O2HB Art 97.5 (H) 94.0 - 97.0 % [facility] COHB Art 0.5 % [facility] Comment: Nonsmokers: 0.5-1.5% COHB Smokers: Variable, but usually less than 10% Toxic: 20-30% COHB Lethal: Greater than 60% COHB METHB Art 0.7 <=1.5 % [facility] Na Whole Blood 140 135 - 145 mmol/L [facility] K Whole Blood 3.0 (Critical) 3.5 - 5.0 mmol/L [facility] Comment: Noted by instrument repair technician. Please note: Patients with WBC >100,000 may have falsely elevated Potassium levels. Contact the Clinical Chemistry L aboratory if there are any questions. ICa Whole Blood 1.07 (L) 1.15 - 1.33 mmol/L [facility] Comment: Note: ??Total bilirubin higher than 20 m g/dL may lead to falsely low ionized calcium. CL Whole Blood 107 98 - 107 mmol/L [facility] Gluc Whole Bld 270 (H) 65 - 199 mg/dL [facility] Comment: Diabetes: >=200 mg/dL plus symp toms. Lactate WB 4.9 (Critical) 0.5 - 2.2 mmol/L [facility] Comment: Noted by instrument repair technician. FIO2 Art 100 % [facility] PF Ratio Art 238 [facility] Specimen Anatomical Collection Method Collection Time Receive d Time (Source) Location / / Volume Laterality Blood specimen 07/07/2017 6:57 PM 017 6:57 (specimen) EST PM EST Daphne Shahid MD CHEMISTRY ORDERABLES Performing Organization Address City/State/[place] [address] (ABNORMAL) BLOOD GAS 2 ARTERIAL (07/07/2017 5:31 PM EST) athologist Signature pH Art 7.29 7.35 - [facility] (Critical) 7.45 [facility] Comment: Noted by instrument repair technician. pCO2 Art 48 (H) 35 - 45 mmHg [facility] pO2 Art 137 (H) 85 - 104 mmHg [facility] HCO3 Art 22.4 20.0 - 26.0 mmol/L [facility] BE Art -4.3 (L) -3.0 - 3.0 mmol/L [facility] Hgb Blood Gas 10.0 (L) 13.7 - 16.5 gm/dL [facility] O2HB Art 97.3 (H) 94.0 - 97.0 % [facility] COHB Art 0.3 % [facility] Comment: Nonsmokers: 0.5-1.5% COHB Smokers: Variable, but usually less than 10% Toxic: 20-30% COHB Lethal: Greater than 60% COHB METHB Art 0.3 <=1.5 % [facility] Na Whole Blood 132 (L) 135 - 145 mmol/L [facility] K Whole Blood 4.0 3.5 - 5.0 mmol/L [facility] Comment: Please note: Patients with WBC >100,000 may have falsely elevated Potassium levels. Contact the Clinical Chemistry L aboratory if there are any questions. ICa Whole Blood 1.14 (L) 1.15 - 1.33 mmol/L [facility] Comment: Note: ??Total bilirubin higher than 20 m g/dL may lead to falsely low ionized calcium. CL Whole Blood 105 98 - 107 mmol/L [facility] Gluc Whole Bld 293 (H) 65 - 199 mg/dL [facility] Comment: Diabetes: >=200 mg/dL plus symp toms. Lactate WB 3.1 (H) 0.5 - 2.2 mmol/L [facility] Specimen Anatomical Collection Method Collection Time Receive d Time (Source) Location / / Volume Laterality Blood specimen 07/07/2017 5:31 PM 017 5:31 (specimen) EST PM EST Daphne Shahid MD CHEMISTRY ORDERABLES Performing Organization Address City/State/[place] [address] Fibrinogen (07/07/2017 5:30 PM EST) P athologist Signature Fibrinogen 224 180 - 510 [facility] mg/dL [facility] Comment: Called by: JEET, Read back [...] Perez MD HEMATOLOGY ORDERABLES Performing Organization Address City/[facility]/ZIP Code Phon e Number [address] APTT (07/07/2017 5:30 PM EST) athologist Signature PTT 30 25 - 35 sec [facility] LABOR[facility] [...] Perez MD HEMATOLOGY ORDERABLES Performing Organization Address City/[facility]/ZIP [facility] [place] [address] (ABNORMAL) Prothrombin Time (07/07/2017 [...] Organization Address City/State/[place] [address] (ABNORMAL) Hemogram (07/07/2017 5:30 PM EST) athologist Signature WBC 19.6 (H) 4.0 - 9.5 [facility] x10(3)/[facility] LABORATORY RBC 3.08 (L) 4.58 - [facility] 5.54 [facility] x10(6)/[facility] LABORATORY Hemoglobin 9.2 (L) 13.7 - [facility] 16.5 gm/dL [facility] Hematocrit 28.0 (L) 40.5 - [facility] 48.5 % [facility] Comment: This result has been called to MONICA WEINSTEIN SON by DONALD GROSSMAN on 07 07 2017 at 1759, and has been read back. MCV 90.9 82.9 - 93.1 [facility] LABORATORY MCH 29.9 27.5 - 32.1 pg [facility] MCHC 32.9 32.0 - 35.7 gm/dL [facility] LABORATORY Platelets 155 145 - 357 x10(3)/[facility] LABORATORY RDWSD 46.5 (H) 36.0 - 45.0 [facility] LABORATORY RDWCV 14.1 (H) 11.4 - 13.8 % [facility] LAB[facility] MPV 9.5 7.6 - 12.9 [facility] LABORATORY nRBC % Auto 0.0 % [facility] LABORATORY nRBC Abs Auto 0.000 0.000 - 0.000 x10(3)/mcL [facility]ORY Specimen Anatomical Collection Method Collection Time Receive d Time (Source) Location / / Volume Laterality Blood specimen 07/07/2017 5:30 PM 017 5:34 (specimen) EST PM EST Resulting Agency Comment Spec In Lab Yifan Perez MD HEMATOLOGY ORDERABLES Performing Organization Address City/[facility]/ZIP Code Phon e Number [address] Prepare Platelets, Apheresis (07/07/2017 5:00 PM EST) P athologist Signature Dispensed? Yes [facility] Specimen Anatomical Collection Method Collection Time Receive d Time (Source) Location / / Volume Laterality Blood specimen 07/07/2017 5:00 PM 017 4:58 (specimen) EST PM EST Daphne Shahid MD BLOOD BANK ORDERABLES Performing Organization Address City/[facility]/ZIP Code Phon e Number [address] Platelet count (07/07/2017 4:55 PM EST) P athologist Signature Platelets 177 145 - 357 [facility] x10(3)/[facility] LABORATORY Plat Immature 1.5 0.0 - 7.4 [facility] % % [facility] Comment: Limitation of the Immature Platelet Frac tion (IPF)-May be less reliable when the platelet count is less than [id number]/u L due to statistical imprecision. The IPF [...] in a decreased state of production. References: [employer] The Clinical Value of the Immature Platelet Fraction (IPF) in Cell Recovery Document Number 10-1143 12/2010 [employer] The Role of the Imm ature [...] Address City/State/ZIP [place] [address] (ABNORMAL) Hemoglobin and Hematocrit, blood (07/07/2017 4:55 PM EST) P athologist Signature Hemoglobin 9.1 (L) 13.7 - 16.5 [facility] gm/dL [facility] Comment: This result has been called to MALKA MORAN by DONALD GROSSMAN on 07 07 2017 at 1734, and has been read back. Hematocrit 26.6 (L) 40.5 - 48.5 % [facility] Comment: This result has been [...] Address City/State/ZIP [place] [address] (ABNORMAL) BLOOD GAS 2 ARTERIAL (07/07/2017 4:38 PM EST) Analysis Performed At Patho logist Time Signature pH Art 7.37 7.35 - [facility] 7.45 [facility] pCO2 Art 44 35 - 45 [facility] mmHg [facility] pO2 Art 322 (H) 85 - 104 [facility] LABORATORY HCO3 Art 24.9 20.0 - [facility] 26.0 [facility] mmol/L [facility] LABORATORY BE Art -0.4 -3.0 - 3.0 [facility] mmol/L [facility] Hgb Blood Gas 10.1 (L) 13.7 - [facility] 16.5 gm/dL [facility] O2HB Art 98.7 (H) 94.0 - [facility] 97.0 % [facility] COHB Art 0.1 % [facility] Comment: Nonsmokers: 0.5-1.5% COHB Smokers: Variable, but usually less than 10% Toxic: 20-30% COHB Lethal: Greater than 60% COHB METHB Art 0.3 <=1.5 % [facility]ATORY Na Whole Blood 130 (L) 135 - 145 mmol/L [facility] K Whole Blood 5.7 (H) 3.5 - 5.0 mmol/L [facility] Comment: Please note: Patients with WBC >100,000 may have falsely elevated Potassium levels. Contact the Clinical Chemistry L aboratory if there are any questions. ICa Whole Blood 0.89 (Critical) 1.15 - 1.33 mmol/L [facility] Comment: Noted by instrument repair technician. Note: ??Total bilirubin higher than 20 m g/dL may lead to falsely low ionized calcium. CL Whole Blood 101 98 - 107 mmol/L [facility] Gluc Whole Bld 295 (H) 65 - 199 mg/dL [facility] [...] Organization Address City/State/[place] [address] (ABNORMAL) BLOOD GAS 2 VENOUS (07/07/2017 4:06 PM EST) Analysis Performed At Patho logist Time Signature pH Cody 7.31 (L) 7.32 - [facility] 7.42 [facility] pCO2 Cody 47 41 - 51 [facility] LABORATORY pO2 Cody 53 (H) 25 - 40 [facility] LABORATORY HCO3 Cody 22.7 mmol/L [facility] BE Cody -3.7 mmol/L [facility] Hgb Blood Gas 10.2 (L) 13.7 - [facility] 16.5 gm/dL [facility] O2HB Cody 81.0 % [facility] COHB Cody 1.0 % [facility] Comment: Nonsmokers: 0.5-1.5% COHB Smokers: Variable, but usually less than 10% Toxic: 20-30% COHB Lethal: Greater than 60% COHB METHB Cody 0.3 <=1.5 % [facility] Na Whole Blood 132 (L) 135 - 145 mmol/L [facility] K Whole Blood 5.3 (H) 3.5 - 5.0 mmol/L [facility] Comment: Please note: Patients with WBC >100,000 may have falsely elevated Potassium levels. Contact the Clinical Chemistry L aboratory if there are any questions. ICa Whole Blood 0.90 (Critical) 1.15 - 1.33 mmol/L [facility] Comment: Noted by instrument repair technician. Note: ??Total bilirubin higher than 20 m g/dL may lead to falsely low ionized calcium. CL Whole Blood 100 98 - 107 mmol/L [facility] Gluc Whole Bld 231 (H) 65 - 199 mg/dL [facility] Comment: Diabetes: >=200 mg/dL plus symp toms Lactate WB 1.1 0.5 - 2.2 mmol/L [facility] BGas Source Venous [facility] Specimen Anatomical Collection Method Collection Time Receive d Time (Source) Location / / Volume Laterality Blood specimen 07/07/2017 4:06 PM 017 4:06 (specimen) EST PM EST Daphne Shahid MD CHEMISTRY ORDERABLES Performing Organization Address City/State/[place] [address] (ABNORMAL) BLOOD GAS 2 ARTERIAL (07/07/2017 4:05 PM EST) Analysis Performed At Patho logist Time Signature pH Art 7.36 7.35 - [facility] 7.45 [facility] pCO2 Art 40 35 - 45 [facility] mmHg [facility] pO2 Art 282 (H) 85 - 104 [facility] mmHg [facility] HCO3 Art 22.1 20.0 - [facility] 26.0 [facility] mmol/L [facility] LABORAT[facility] BE Art -3.4 (L) -3.0 - 3.0 [facility] mmol/L [facility] Hgb Blood Gas 10.2 (L) 13.7 - [facility] 16.5 gm/dL [facility] O2HB Art 98.4 (H) 94.0 - [facility] 97.0 % [facility] COHB Art 0.3 % [facility] Comment: Nonsmokers: 0.5-1.5% COHB Smokers: Variable, but usually less than 10% Toxic: 20-30% COHB Lethal: Greater than 60% COHB METHB Art 0.3 <=1.5 % [facility] Na Whole Blood 131 (L) 135 - 145 mmol/L [facility] K Whole Blood 5.4 (H) 3.5 - 5.0 mmol/L [facility] Comment: Please note: Patients with WBC >100,000 may have falsely elevated Potassium levels. Contact the Clinical Chemistry L aboratory if there are any questions. ICa Whole Blood 0.86 (Critical) 1.15 - 1.33 mmol/L [facility] Comment: Noted by instrument repair technician. Note: ??Total bilirubin higher than 20 m g/dL may lead to falsely low ionized calcium. CL Whole Blood 101 98 - 107 mmol/L [facility] Gluc Whole Bld 260 (H) 65 - 199 mg/dL [facility] [...] Organization Address City/State/[place] [address] (ABNORMAL) BLOOD GAS 2 ARTERIAL (07/07/2017 2:29 PM EST) Analysis Performed At Patho logist Time Signature pH Art 7.43 7.35 - [facility] 7.45 [facility] pCO2 Art 36 35 - 45 [facility] mmHg [facility] pO2 Art 221 (H) 85 - 104 [facility] LABORATORY HCO3 Art 23.2 20.0 - [facility] 26.0 [facility] mmol/L [facility] LABORATORY BE Art -1.2 -3.0 - 3.0 [facility] mmol/L [facility] Hgb Blood Gas 13.9 13.7 - [facility] 16.5 gm/dL [facility] O2HB Art 97.8 (H) 94.0 - [facility] 97.0 % [facility] COHB Art 1.1 % [facility] Comment: Nonsmokers: 0.5-1.5% COHB Smokers: Variable, but usually less than 10% Toxic: 20-30% COHB Lethal: Greater than 60% COHB METHB Art 0.3 <=1.5 % [facility] Na Whole Blood 139 135 - 145 mmol/L [facility] K Whole Blood 4.0 3.5 - 5.0 mmol/L [facility] Comment: Please note: Patients with WBC >100,000 may have falsely elevated Potassium levels. Contact the Clinical Chemistry L aboratory if there are any questions. ICa Whole Blood 1.11 (L) 1.15 - 1.33 mmol/L [facility] Comment: Note: ??Total bilirubin higher than 20 m g/dL may lead to falsely low ionized calcium. CL Whole Blood 104 98 - 107 mmol/L [facility] Gluc Whole Bld 184 65 - 199 mg/dL [facility] Comment: Diabetes: >=200 mg/dL plus symp toms. Lactate WB 1.5 0.5 - 2.2 mmol/L [facility] Specimen Anatomical Collection Method Collection Time Receive d Time (Source) Location / / Volume Laterality Blood specimen 07/07/2017 2:29 PM 017 2:29 (specimen) EST PM EST Daphne Shahid MD CHEMISTRY ORDERABLES Performing Organization Address City/[facility]/ZIP Code Phon e Number [address] Prepare Coag Factors (Non-Hemophilia) (07/07/2017 1:25 PM EST) P athologist Signature Dispensed? Yes [facility] Specimen Anatomical Collection Method Collection Time Receive d Time (Source) Location / / Volume Laterality Blood specimen 07/07/2017 1:25 PM 017 1:21 (specimen) EST PM EST Daphne Shahid MD BLOOD BANK ORDERABLES Performing Organization Address City/[facility]/ZIP [place] [address] Prepare RBC (07/07/2017 1:10 PM EST) P athologist Signature Dispensed? Yes [facility] Specimen Anatomical Collection Method Collection Time Receive d Time (Source) Location / / Volume Laterality Blood specimen 07/07/2017 1:10 PM 017 1:05 (specimen) EST PM EST Daphne Shahid MD BLOOD BANK ORDERABLES Performing Organization Address City/[facility]/ZIP [place] [address] POCT Glucose (07/07/2017 11:56 AM EST) P athologist Signature POC Glucose 188 65 - 199 [facility] mg/dL [facility] Comment: Supplemental ranges: <140 mg/dL before meals <180 mg/dL all other times of the day Specimen Anatomical Collection Method Collection Time Receive d Time (Source) Location / / Volume Laterality Blood specimen 07/07/2017 11:56 7 (specimen) AM EST 11:56 AM EST Daphne Shahid MD POINT OF CARE TEST ORDERABLE S Performing Organization Address City/State/ZIP Code Phon e Number [address] POCT Glucose (07/07/2017 11:05 AM EST) P athologist Signature POC Glucose 168 65 - 199 [place] RYAN mg/dL [facility] Comment: Supplemental ranges: <140 mg/dL before meals <180 mg/dL all other times of the day Specimen Anatomical Collection Method Collection Time Receive d Time (Source) Location / / Volume Laterality Blood specimen 07/07/2017 11:05 7 (specimen) AM EST 11:05 AM EST Daphne Shahid MD POINT OF CARE TEST ORDERABLE S Performing Organization Address City/[facility]/ZIP Code Phon e Number [address] POCT Glucose (07/07/2017 10:02 AM EST) P athologist Signature POC Glucose 191 65 - 199 [place] RYAN mg/dL [facility] Comment: Supplemental ranges: <140 mg/dL before meals <180 mg/dL all other times of the day Specimen Anatomical Collection Method Collection Time Receive d Time (Source) Location / / Volume Laterality Blood specimen 07/07/2017 10:02 7 (specimen) AM EST 10:02 AM EST Daphne Shahid MD POINT OF CARE TEST ORDERABLE S Performing Organization Address City/State/ZIP [place] [address] POCT Glucose (07/07/2017 7:53 AM EST) P athologist Signature POC Glucose 178 65 - 199 [place] mg/dL [facility] Comment: Supplemental ranges: <140 mg/dL before meals <180 mg/dL all other times of the day Specimen Anatomical Collection Method Collection Time Receive d Time (Source) Location / / Volume Laterality Blood specimen 07/07/2017 7:53 AM 017 7:53 (specimen) EST AM EST Daphne Shahid MD POINT OF CARE TEST ORDERABLE S Performing Organization Address City/State/ZIP Code Phon e Number [address] POCT Glucose (07/07/2017 7:03 AM EST) athologist Signature POC Glucose 188 65 - 199 [facility] Comment: Supplemental ranges: <140 mg/dL before meals <180 mg/dL all other times of the day Specimen Anatomical Collection Method Collection Time Receive d Time (Source) Location / / Volume Laterality Blood specimen 07/07/2017 7:03 AM 017 7:03 (specimen) EST AM EST Daphne Shahid MD POINT OF CARE TEST ORDERABLE S Performing Organization Address City/[facility]/ZIP [place] [address] (ABNORMAL) POCT Glucose (07/07/2017 6:17 AM EST) athologist Signature POC Glucose 207 (H) 65 - 199 [facility]/dL [facility] Comment: Supplemental ranges: <140 mg/dL before meals <180 mg/dL all other times of the day Specimen Anatomical Collection Method Collection Time Receive d Time (Source) Location / / Volume Laterality Blood specimen 07/07/2017 6:17 AM 017 6:17 (specimen) EST AM EST Daphne Shahid MD POINT OF CARE TEST ORDERABLE S Performing Organization Address City/[facility]/ZIP Code Phon e Number [address] Differential, Automated (07/07/2017 5:15 AM EST) athologist Signature Neutrophils % 69.7 % [facility] Neutr Abs (ANC) 5.32 1.70 - [facility] 6.10 [facility] x10(3)/[facility] LABORATORY Lymphocytes % 16.3 % [facility] Lymphocytes Abs 1.2 0.9 - 3.2 [facility] x10(3)/[facility] LABORATORY Monocytes % 10.5 % [facility] Monocyte Abs 0.8 0.3 - 0.9 [facility] x10(3)/[facility] LABORATORY Eosinophils % 2.5 % [facility] Eosinophils Abs 0.2 0.0 - 0.4 [facility] x10(3)/[facility] LABORATORY Basophils % 0.7 % [facility] Basophils Abs 0.0 0.0 - 0.1 [facility] x10(3)/[facility] LABORATORY Immature Gran % 0.30 % [facility] Comment: Immature granulocytes(IG's)percentage an d absolute count will include metamyelocytes, myelocytes, and promyelo cytes. Blood smears from CBCs yielding IG's will be scanned manually for concor dance. If this scan disagrees with the automated IG or if promyelocytes are not ed, a manual differential will be performed. Melisa Gran Abs 0.02 0.00 - 0.04 x10(3)/[facility] LABORATORY Specimen Anatomical Collection Method Collection Time Receive d Time (Source) Location / / Volume Laterality Blood specimen 07/07/2017 5:15 AM 017 5:34 (specimen) EST AM EST Resulting Agency Comment Spec In Lab Daphne Shahid MD HEMATOLOGY ORDERABLES Performing Organization Address City/State/[place] [address] (ABNORMAL) Hemogram (07/07/2017 5:15 AM EST) Analysis Performed At Patho logist Time Signature WBC 7.6 4.0 - 9.5 [facility] x10(3)/[facility] LABORATORY RBC 4.82 4.58 - [facility] 5.54 [facility] x10(6)/[facility] LABORATORY Hemoglobin 14.4 13.7 - [facility] 16.5 gm/dL [facility]ORY Hematocrit 42.1 40.5 - [facility] 48.5 % [facility]ORY MCV 87.3 82.9 - [facility] 93.1 fL [facility]ORY MCH 29.9 27.5 - [facility] 32.1 pg [facility]ORY MCHC 34.2 32.0 - [facility] 35.7 gm/dL [facility]ORY Platelets 188 145 - 357 [facility] x10(3)/[facility] LABORATORY RDWSD 45.1 (H) 36.0 - [place] RYAN 45.0 [facility] LABORATORY RDWCV 14.3 (H) 11.4 - [facility] RYAN 13.8 % [facility] LABORATORY MPV 9.4 7.6 - 12.9 [facility] RYAN [facility] LABORATORY nRBC % Auto 0.0 % [facility] nRBC Abs Auto 0.000 0.000 - [place] DAVIS 0.000 [facility] x10(3)/[facility] LABORATORY Specimen Anatomical Collection Method Collection Time Receive d Time (Source) Location / / Volume Laterality Blood specimen 07/07/2017 5:15 AM 017 5:34 (specimen) EST AM EST Resulting Agency Comment Spec In Lab Daphne Shahid MD HEMATOLOGY ORDERABLES Performing Organization Address City/[facility]/ZIP Code Phon e Number [address] (ABNORMAL) APTT (07/07/2017 5:15 AM EST) P athologist Signature PTT 69 (H) 25 - 35 sec [facility] [...] Address City/State/ZIP Code Phon e Number [address] Magnesium (07/07/2017 5:15 AM EST) P athologist Signature Magnesium 0.94 0.69 - 1.07 [facility] mmol/L [facility]ORY Specimen Anatomical Collection Method Collection Time Receive d Time (Source) Location / / Volume Laterality Blood specimen 07/07/2017 5:15 AM 017 5:34 (specimen) EST AM EST Resulting Agency Comment Spec In Lab Daphen Shahid MD CHEMISTRY ORDERABLES Performing Organization Address City/State/[place] [address] (ABNORMAL) Basic Metabolic Panel (non-fasting) (07/07/2017 5:15 AM EST) athologist Signature Glucose Lvl 203 (H) 65 - 199 [facility] mg/dL [facility]ORY Comment: Diabetes: >=200 mg/dL plus symp toms BUN 15 10 - 20 mg/dL [facility] Creatinine 1.09 0.80 - 1.50 mg/dL [facility] [...] estions. Chloride 102 98 - 107 mmol/L [facility] CO2 26 22 - 31 mmol/L [facility] Anion Gap 14 5 - 15 mmol/L [facility] Calcium 8.6 8.5 - 10.5 mg/dL [facility] LABORATORY Estimated GFR >60 >=60 [facility] Comment: The reported eGFR should be multiplied b y 1.2 for patients. The MDRD is not an appropriate measure o f renal function for patients with body mass extremes or in patients with acute kidney failure. http://SimpleSite/DHnkdep http://SimpleSite/DHMCnkf Specimen Anatomical Collection Method Collection Time Receive d Time (Source) Location / / Volume Laterality Blood specimen 07/07/2017 5:15 AM 017 5:34 (specimen) EST AM EST Resulting Agency Comment Spec In Lab Daphne Shahid MD CHEMISTRY ORDERABLES Performing Organization Address City/[facility]/ZIP [place] [address] (ABNORMAL) Cardiac Enzymes (LEB/CGP) (07/07/2017 5:15 AM EST) athologist Signature Troponin-T 2.07 (H) 0.00 - [place] OLIVASCK 0.00 ng/mL [facility]ORY Comment: The 99th percentile for Troponin [...] additional sample may be indicated. Reference: Third [place] Definition of Myocardial Infarction. Journal of the [place] [employer] 2012;60:1581-98 CK, Total 88 0 - 200 unit/L [facility] Specimen Anatomical Collection Method Collection Time Receive d Time (Source) Location / / Volume Laterality Blood specimen 07/07/2017 5:15 AM 017 5:34 (specimen) EST AM EST Resulting Agency Comment Spec In Lab Daphne Shahid MD CHEMISTRY ORDERABLES Performing Organization Address City/[facility]/ZIP [place] [address] POCT Glucose (07/07/2017 5:01 AM EST) athologist Signature POC Glucose 182 65 - 199 [facility] mg/dL [facility]ORY Comment: Supplemental ranges: <140 mg/dL before meals <180 mg/dL all other times of the day Specimen Anatomical Collection Method Collection Time Receive d Time (Source) Location / / Volume Laterality Blood specimen 07/07/2017 5:01 AM 017 5:01 (specimen) EST AM EST Daphne Shahid MD POINT OF CARE TEST ORDERABLE S Performing Organization Address City/State/ZIP Code Phon e Number [address] POCT Glucose (07/07/2017 4:08 AM EST) athologist Signature POC Glucose 199 65 - 199 [facility] RYAN mg/dL [facility] Comment: Supplemental ranges: <140 mg/dL before meals <180 mg/dL all other times of the day Specimen Anatomical Collection Method Collection Time Receive d Time (Source) Location / / Volume Laterality Blood specimen 07/07/2017 4:08 AM 017 4:08 (specimen) EST AM EST Daphne Shahid MD POINT OF CARE TEST ORDERABLE S Performing Organization Address City/State/ZIP Code Phon e Number [address] POCT Glucose (07/07/2017 3:03 AM EST) athologist Signature POC Glucose 188 65 - 199 [place] mg/dL [facility] LABORATORY Comment: Supplemental ranges: <140 mg/dL before meals <180 mg/dL all other times of the day Specimen Anatomical Collection Method Collection Time Receive d Time (Source) Location / / Volume Laterality Blood specimen 07/07/2017 3:03 AM 017 3:03 (specimen) EST AM EST Daphne Shahid MD POINT OF CARE TEST ORDERABLE S Performing Organization Address City/State/ZIP [place] [address] (ABNORMAL) POCT Glucose (07/07/2017 2:08 AM EST) athologist Signature POC Glucose 200 (H) 65 - 199 [facility] LABORATORY Comment: Supplemental ranges: <140 mg/dL before meals <180 mg/dL all other times of the day Specimen Anatomical Collection Method Collection Time Receive d Time (Source) Location / / Volume Laterality Blood specimen 07/07/2017 2:08 AM 017 2:08 (specimen) EST AM EST Daphne Shahid MD POINT OF CARE TEST ORDERABLE S Performing Organization Address City/State/ZIP [place] [address] (ABNORMAL) POCT Glucose (07/07/2017 1:31 AM EST) athologist Signature POC Glucose 209 (H) 65 - 199 [facility]/dL [facility] LABORATORY Comment: Supplemental ranges: <140 mg/dL before meals <180 mg/dL all other times of the day Specimen Anatomical Collection Method Collection Time Receive d Time (Source) Location / / Volume Laterality Blood specimen 07/07/2017 1:31 AM 017 1:31 (specimen) EST AM EST Daphne Shahid MD POINT OF CARE TEST ORDERABLE S Performing Organization Address City/[facility]/ZIP [place] [address] XR Chest PA or [...] POC Glucose 161 65 - 199 [facility] mg/dL [facility] LABORATORY Comment: Supplemental ranges: <140 mg/dL before meals <180 mg/dL all other times of the day Specimen Anatomical Collection Method Collection Time Receive d Time (Source) Location / / Volume Laterality Blood specimen 07/07/2017 12:07 7 (specimen) AM EST 12:07 AM EST Daphne Shahid MD POINT OF CARE TEST ORDERABLE S Performing Organization Address City/State/ZIP Code Phon e Number [address] (ABNORMAL) APTT (07/07/2017 12:00 AM EST) athologist Signature PTT 103 (H) 25 - 35 sec [facility] [...] Address City/State/ZIP Code Phon e Number [address] POCT Glucose (07/06/2017 9:55 PM EST) athologist Signature POC Glucose 109 65 - 199 [facility] RYAN mg/dL [facility] LABORATORY Comment: Supplemental ranges: <140 mg/dL before meals <180 mg/dL all other times of the day Specimen Anatomical Collection Method Collection Time Receive d Time (Source) Location / / Volume Laterality Blood specimen 07/06/2017 9:55 PM 017 9:55 (specimen) EST PM EST Daphne Shahid MD POINT OF CARE TEST ORDERABLE S Performing Organization Address City/State/ZIP Code Phon e Number [address] POCT Glucose (07/06/2017 9:04 PM EST) athologist Signature POC Glucose 120 65 - 199 [facility] mg/dL [facility] LABORATORY Comment: Supplemental ranges: <140 mg/dL before meals <180 mg/dL all other times of the day Specimen Anatomical Collection Method Collection Time Receive d Time (Source) Location / / Volume Laterality Blood specimen 07/06/2017 9:04 PM 017 9:04 (specimen) EST PM EST Daphne Shahid MD POINT OF CARE TEST ORDERABLE S Performing Organization Address City/State/ZIP Code Phon e Number [address] POCT Glucose (07/06/2017 7:45 PM EST) athologist Signature POC Glucose 158 65 - 199 [facility] RYAN mg/dL [facility] LABORATORY Comment: Supplemental ranges: <140 mg/dL before meals <180 mg/dL all other times of the day Specimen Anatomical Collection Method Collection Time Receive d Time (Source) Location / / Volume Laterality Blood specimen 07/06/2017 7:45 PM 017 7:45 (specimen) EST PM EST Daphne Shahid MD POINT OF CARE TEST ORDERABLE S Performing Organization Address City/State/ZIP [place] [address] Potassium (07/06/2017 7:40 PM EST) athologist Signature Potassium 3.9 3.5 - 5.0 [facility] mmol/L [facility] LABORATORY Comment: Please note: ??Patients with WBC [...] Organization Address City/State/ZIP Code Phon e Number [place] [id number] (ABNORMAL) Cardiac Enzymes (LEB/CGP) (07/06/2017 7:40 PM EST) athologist Signature Troponin-T 2.27 (H) 0.00 - [place] RYAN 0.00 ng/mL [facility] LABORATORY Comment: The 99th percentile for Troponin [...] additional sample may be indicated. Reference: Third [place] Definition of Myocardial Infarction. Journal of the [place] [employer] 2012;60:1581-98 CK, Total 93 0 - 200 unit/L [facility] LABORATORY Specimen Anatomical Collection Method Collection Time Receive d Time (Source) Location / / Volume Laterality Blood specimen 07/06/2017 7:40 PM 017 7:52 (specimen) EST PM EST Resulting Agency Comment Spec In Lab Daphne Shahid MD CHEMISTRY ORDERABLES Performing Organization Address City/[facility]/ZIP [place] [address] (ABNORMAL) POCT Glucose (07/06/2017 7:13 PM EST) P athologist Signature POC Glucose 200 (H) 65 - 199 [facility] mg/dL [facility] LABORATORY Comment: Supplemental ranges: <140 mg/dL before meals <180 mg/dL all other times of the day Specimen Anatomical Collection Method Collection Time Receive d Time (Source) Location / / Volume Laterality Blood specimen 07/06/2017 7:13 PM 017 7:13 (specimen) EST PM EST Daphne Shahid MD POINT OF CARE TEST ORDERABLE S Performing Organization Address City/[facility] [place] [address] (ABNORMAL) APTT (07/06/2017 6:15 PM EST) P athologist Signature PTT 94 (H) 25 - 35 sec [facility] [...] Shahid MD HEMATOLOGY ORDERABLES Performing Organization Address City/[facility]/ZIP Code Phon e Number [address] (ABNORMAL) POCT Glucose (07/06/2017 6:03 PM EST) athologist Signature POC Glucose 236 (H) 65 - 199 [facility] mg/dL [facility] LABORATORY Comment: Supplemental ranges: <140 mg/dL before meals <180 mg/dL all other times of the day Specimen Anatomical Collection Method Collection Time Receive d Time (Source) Location / / Volume Laterality Blood specimen 07/06/2017 6:03 PM 017 6:03 (specimen) EST PM EST Daphne Shahid MD POINT OF CARE TEST ORDERABLE S Performing Organization Address City/State/ZIP [place] [address] (ABNORMAL) POCT Glucose (07/06/2017 5:01 PM EST) athologist Signature POC Glucose 235 (H) 65 - 199 [facility] mg/dL [facility] LABORATORY Comment: Supplemental ranges: <140 mg/dL before meals <180 mg/dL all other times of the day Specimen Anatomical Collection Method Collection Time Receive d Time (Source) Location / / Volume Laterality Blood specimen 07/06/2017 5:01 PM 017 5:01 (specimen) EST PM EST Daphne Shahid MD POINT OF CARE TEST ORDERABLE S Performing Organization Address City/State/ZIP [place] [address] (ABNORMAL) POCT Glucose (07/06/2017 4:06 PM EST) athologist Signature POC Glucose 202 (H) 65 - 199 [facility] RYAN mg/dL [facility] LABORATORY Comment: Supplemental ranges: <140 mg/dL before meals <180 mg/dL all other times of the day Specimen Anatomical Collection Method Collection Time Receive d Time (Source) Location / / Volume Laterality Blood specimen 07/06/2017 4:06 PM 017 4:06 (specimen) EST PM EST Daphne Shahid MD POINT OF CARE TEST ORDERABLE S Performing Organization Address City/State/ZIP [place] [address] POCT Glucose (07/06/2017 2:59 PM EST) athologist Signature POC Glucose 178 65 - 199 [facility] LABORATORY Comment: Supplemental ranges: <140 mg/dL before meals <180 mg/dL all other times of the day Specimen Anatomical Collection Method Collection Time Receive d Time (Source) Location / / Volume Laterality Blood specimen 07/06/2017 2:59 PM 017 2:59 (specimen) EST PM EST Daphne Shahid MD POINT OF CARE TEST ORDERABLE S Performing Organization Address City/State/ZIP Code Phon e Number [place] [id number] [facility] [address] Drive (ABNORMAL) Cardiac Enzymes (LEB/CGP) (07/06/2017 2:10 PM EST) athologist Signature Troponin-T 2.34 (H) 0.00 - [facility] 0.00 ng/mL [facility] LABORATORY Comment: The 99th percentile for Troponin [...] additional sample may be indicated. Reference: Third [place] Definition of Myocardial Infarction. Journal of the [place] [employer] 2012;60:1581-98 CK, Total 101 0 - 200 unit/L [facility] LABORATORY Specimen Anatomical Collection Method Collection Time Receive d Time (Source) Location / / Volume Laterality Blood specimen 07/06/2017 2:10 PM 017 2:26 (specimen) EST PM EST Resulting Agency Comment Spec In Lab Daphne Shahid MD CHEMISTRY ORDERABLES Performing Organization Address City/State/ZIP Code Phon e Number [address] POCT Glucose (07/06/2017 2:08 PM EST) athologist Signature POC Glucose 192 65 - 199 [place] RY[place] mg/dL [facility] LABORATORY Comment: Supplemental ranges: <140 mg/dL before meals <180 mg/dL all other times of the day Specimen Anatomical Collection Method Collection Time Receive d Time (Source) Location / / Volume Laterality Blood specimen 07/06/2017 2:08 PM 017 2:08 (specimen) EST PM EST Daphne Shahid MD POINT OF CARE TEST ORDERABLE S Performing Organization Address City/State/ZIP Code Phon e Number [address] POCT Glucose (07/06/2017 1:04 PM EST) athologist Signature POC Glucose 162 65 - 199 [facility] mg/dL [facility] LABORATORY Comment: Supplemental ranges: <140 mg/dL before meals <180 mg/dL all other times of the day Specimen Anatomical Collection Method Collection Time Receive d Time (Source) Location / / Volume Laterality Blood specimen 07/06/2017 1:04 PM 017 1:04 (specimen) EST PM EST Daphne Shahid MD POINT OF CARE TEST ORDERABLE S Performing Organization Address City/State/ZIP Code Phon e Number [address] POCT Glucose (07/06/2017 12:05 PM EST) athologist Signature POC Glucose 196 65 - 199 [facility] mg/dL [facility] LABORATORY Comment: Supplemental ranges: <140 mg/dL before meals <180 mg/dL all other times of the day Specimen Anatomical Collection Method Collection Time Receive d Time (Source) Location / / Volume Laterality Blood specimen 07/06/2017 12:05 7 (specimen) PM EST 12:05 PM EST Daphne Shahid MD POINT OF CARE TEST ORDERABLE S Performing Organization Address [facility]/[place] [address] EKG 12 Lead (07/06/2017 12:00 PM EST) Component Value Ref Range Test Analysis Performed Pathologis t Method Time At Signature Ventricular rate 91 BPM MUSE SYSTEM Atrial Rate 91 BPM MUSE SYSTEM P-R Interval 140 ms MUSE SYSTEM QRS Duration 94 ms MUSE SYSTEM Q-T Interval 394 ms MUSE SYSTEM QTC Calculated 484 ms MUSE SYSTEM (Bezet) Calculated P [place] 36 degrees MUSE SYSTEM Calculated R [place] -19 degrees MUSE SYSTEM Calculated T [place] 104 degrees MUSE SYSTEM INTERPRETATION Normal sinus rhythm MUSE SYSTEM 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) ST & T wave abnormality, consider lateral ischemia Abnormal ECG When compared with ECG of 05-JUL-2017 20:39, No significant change was found Confirmed by MD Luci, Taurus Braun ([id number]) on 07/06/2017 5:07:33 PM Specimen Anatomical Collection Method Collection Time Receive d Time (Source) Location / / Volume Laterality 07/06/2017 12:00 07/06/2017 5:07 PM EST PM EST Daphne Shahid MD ECG ORDERABLES Performing Organization Address [facility]/ZIP Code Phon e Number MUSE SYSTEM ABORH Recheck Status (07/06/2017 12:00 PM EST) [facility] Method Time Signature ABORH Type Completed [facility] LABORATORY Specimen Anatomical Collection Method Collection Time Receive d Time (Source) Location / / Volume Laterality Blood specimen 07/06/2017 12:00 7 (specimen) PM EST 12:24 PM EST Resulting Agency Comment Spec In Lab Daphne Shahid MD BLOOD BANK ORDERABLES Performing Organization Address [facility]/[place] [address] Antibody screen (07/06/2017 12:00 PM EST) [facility] Method Time Signature Ab Screen Negative [facility] LABORATORY Expires at 07/09/2017 [facility] [id number] on: [facility] LABORATORY Specimen Anatomical Collection Method Collection Time Receive d Time (Source) Location / / Volume Laterality Blood specimen 07/06/2017 12:00 7 (specimen) PM EST 12:24 PM EST Resulting Agency Comment Spec In Lab Daphne Shahid MD BLOOD BANK ORDERABLES Performing Organization Address City/[facility]/ZIP [place] [address] ABO/Rh Typing (07/06/2017 12:00 PM EST) P athologist Signature ABORh Type O Pos [facility] LABORATORY Specimen Anatomical Collection Method Collection Time Receive d Time (Source) Location / / Volume Laterality Blood specimen 07/06/2017 12:00 7 (specimen) PM EST 12:24 PM EST Resulting Agency Comment Spec In Lab Daphne Shahid MD BLOOD BANK ORDERABLES Performing Organization Address City/[facility] [place] [address] Prothrombin Time (07/06/2017 11:24 AM EST) P athologist Signature PT 13.3 11.8 - 14.0 [facility] LABORATORY INR 1.0 0.9 - 1.1 [facility] LABORATORY Comment: [...] Shahid MD HEMATOLOGY ORDERABLES Performing Organization Address City/[facility]/ZIP Code Phon e Number [address] (ABNORMAL) APTT (07/06/2017 11:24 AM EST) athologist Signature PTT 52 (H) 25 - 35 sec [facility] [...] Shahid MD HEMATOLOGY ORDERABLES Performing Organization Address City/[facility] Phon e Number [address] POCT Glucose (07/06/2017 11:02 AM EST) athologist Signature POC Glucose 187 65 - 199 [facility] mg/dL [facility] LABORATORY Comment: Supplemental ranges: <140 mg/dL before meals <180 mg/dL all other times of the day Specimen Anatomical Collection Method Collection Time Receive d Time (Source) Location / / Volume Laterality Blood specimen 07/06/2017 11:02 7 (specimen) AM EST 11:02 AM EST Daphne Shahid MD POINT OF CARE TEST ORDERABLE S Performing Organization Address City/[facility]/ZIP [place] [address] POCT Glucose (07/06/2017 10:18 AM EST) athologist Signature POC Glucose 193 65 - 199 [facility]/dL [facility] LABORATORY Comment: Supplemental ranges: <140 mg/dL before meals <180 mg/dL all other times of the day Specimen Anatomical Collection Method Collection Time Receive d Time (Source) Location / / Volume Laterality Blood specimen 07/06/2017 10:18 7 (specimen) AM EST 10:18 AM EST Daphne Shahid MD POINT OF CARE TEST ORDERABLE S Performing Organization Address City/State/[place] [address] POCT Glucose (07/06/2017 9:25 AM EST) athologist Signature POC Glucose 182 65 - 199 [facility] mg/dL [facility] LABORATORY Comment: Supplemental ranges: <140 mg/dL before meals <180 mg/dL all other times of the day Specimen Anatomical Collection Method Collection Time Receive d Time (Source) Location / / Volume Laterality Blood specimen 07/06/2017 9:25 AM 017 9:25 (specimen) EST AM EST Daphne Shahid MD POINT OF CARE TEST ORDERABLE S Performing Organization Address City/State/ZIP Code Phon e Number [address] (ABNORMAL) Cardiac Enzymes (LEB/CGP) (07/06/2017 8:10 AM EST) athologist [employer] Troponin-T 2.26 (H) 0.00 - [facility] 0.00 ng/mL [facility] LABORATORY Comment: The 99th percentile for Troponin [...] additional sample may be indicated. Reference: Third [place] Definition of Myocardial Infarction. Journal of the [place] 2012;60:1581-98 CK, Total 124 0 - 200 unit/L [facility] LABORATORY Specimen Anatomical Collection Method Collection Time Receive d Time (Source) Location / / Volume Laterality Blood specimen 07/06/2017 8:10 AM 017 8:23 (specimen) EST AM EST Resulting Agency Comment Spec In Lab Daphne Shahid MD CHEMISTRY ORDERABLES Performing Organization Address City/[facility]/ZIP Code Phon e Number [address] Magnesium (07/06/2017 8:10 AM EST) P athologist Signature Magnesium 0.84 0.69 - 1.07 [facility] mmol/L [facility] LABORATORY Specimen Anatomical Collection Method Collection Time Receive d Time (Source) Location / / Volume Laterality Blood specimen 07/06/2017 8:10 AM 017 8:21 (specimen) EST AM EST Resulting Agency Comment Spec In Lab Daphne Shahid MD CHEMISTRY ORDERABLES Performing Organization Address City/[facility]/ZIP Code Phon e Number [address] (ABNORMAL) Basic Metabolic Panel (non-fasting) (07/06/2017 8:10 AM EST) P athologist Signature Glucose Lvl 199 65 - 199 [facility] mg/dL [facility] LABORATORY Comment: Diabetes: >=200 mg/dL plus symp toms BUN 16 10 - 20 mg/dL [facility] LABORATORY Creatinine 1.04 0.80 - 1.50 mg/dL [facility] [...] [facility] Estimated GFR >60 >=60 [facility] LABORATORY Comment: The reported eGFR should be multiplied b y 1.2 for patients. The MDRD is not an appropriate measure o f renal function for patients with body mass extremes or in patients with acute kidney failure. http://SimpleSite/DHnkdep http://SimpleSite/DHMCnkf Specimen Anatomical Collection Method Collection Time Receive d Time (Source) Location / / Volume Laterality Blood specimen 07/06/2017 8:10 AM 017 8:21 (specimen) EST AM EST Resulting Agency Comment Spec In Lab Daphne Shahid MD CHEMISTRY ORDERABLES Performing Organization Address City/[facility]/ZIP Code Phon e Number [address] POCT Glucose (07/06/2017 7:34 AM EST) athologist Signature POC Glucose 198 65 - 199 [facility]/dL [facility] LABORATORY Comment: Supplemental ranges: <140 mg/dL before meals <180 mg/dL all other times of the day Specimen Anatomical Collection Method Collection Time Receive d Time (Source) Location / / Volume Laterality Blood specimen 07/06/2017 7:34 AM 017 7:34 (specimen) EST AM EST Daphne Shahid MD POINT OF CARE TEST ORDERABLE S Performing Organization Address City/State/ZIP Code Phon e Number [address] POCT Glucose (07/06/2017 7:03 AM EST) athologist Signature POC Glucose 181 65 - 199 [facility]/dL [facility] LABORATORY Comment: Supplemental ranges: <140 mg/dL before meals <180 mg/dL all other times of the day Specimen Anatomical Collection Method Collection Time Receive d Time (Source) Location / / Volume Laterality Blood specimen 07/06/2017 7:03 AM 017 7:03 (specimen) EST AM EST Daphne Shahid MD POINT OF CARE TEST ORDERABLE S Performing Organization Address City/State/ZIP Code Phon e Number [place] [id number] HOSPITAL [address] XR Chest PA or [...] POC Glucose 172 65 - 199 [facility] RYAN mg/dL [facility] LABORATORY Comment: Supplemental ranges: <140 mg/dL before meals <180 mg/dL all other times of the day Specimen Anatomical Collection Method Collection Time Receive d Time (Source) Location / / Volume Laterality Blood specimen 07/06/2017 6:21 AM 017 6:21 (specimen) EST AM EST Daphne Shahid MD POINT OF CARE TEST ORDERABLE S Performing Organization Address City/State/ZIP Code Phon e Number [address] POCT Glucose (07/06/2017 5:08 AM EST) athologist Signature POC Glucose 154 65 - 199 [facility] mg/dL [facility] LABORATORY Comment: Supplemental ranges: <140 mg/dL before meals <180 mg/dL all other times of the day Specimen Anatomical Collection Method Collection Time Receive d Time (Source) Location / / Volume Laterality Blood specimen 07/06/2017 5:08 AM 017 5:08 (specimen) EST AM EST Daphne Shahid MD POINT OF CARE TEST ORDERABLE S Performing Organization Address City/State/ZIP [place] [address] POCT Glucose (07/06/2017 4:05 AM EST) athologist Signature POC Glucose 142 65 - 199 [facility] mg/dL [facility] LABORATORY Comment: Supplemental ranges: <140 mg/dL before meals <180 mg/dL all other times of the day Specimen Anatomical Collection Method Collection Time Receive d Time (Source) Location / / Volume Laterality Blood specimen 07/06/2017 4:05 AM 017 4:05 (specimen) EST AM EST Daphne Shahid MD POINT OF CARE TEST ORDERABLE S Performing Organization Address City/State/ZIP [place] [address] POCT Glucose (07/06/2017 3:00 AM EST) athologist [facility] POC Glucose 116 65 - 199 [facility] mg/dL [facility] LABORATORY Comment: Supplemental ranges: <140 mg/dL before meals <180 mg/dL all other times of the day Specimen Anatomical Collection Method Collection Time Receive d Time (Source) Location / / Volume Laterality Blood specimen 07/06/2017 3:00 AM 017 3:00 (specimen) EST AM EST Daphne Shahid MD POINT OF CARE TEST ORDERABLE S Performing Organization Address City/[facility] Phon e Number [address] Potassium (07/06/2017 2:20 AM EST) [facility] Potassium 3.9 3.5 - 5.0 [facility] mmol/L [facility] LABORATORY Comment: Please note: ??Patients with WBC [...] Shahid MD CHEMISTRY ORDERABLES Performing Organization Address City/[facility] Phon e Number [address] Differential, Automated (07/06/2017 2:20 AM EST) [facility] % 72.9 % [facility] LABORAT[facility] Neutr Abs (ANC) 5.53 1.70 - [facility] 6.10 [facility] x10(3)/[facility] LABORATORY Lymphocytes % 16.4 % [facility] LABORAT[facility] Lymphocytes Abs 1.2 0.9 - 3.2 [facility] x10(3)/[facility] LABORATORY Monocytes % 9.4 % [facility] LABORAT[facility] Monocyte Abs 0.7 0.3 - 0.9 [facility] x10(3)/[facility] LABORATORY Eosinophils % 0.5 % [facility] LABOR[facility] Eosinophils Abs 0.0 0.0 - 0.4 [facility] x10(3)/[facility] LABORATORY Basophils % 0.4 % [facility] LABORAT[facility] Basophils Abs 0.0 0.0 - 0.1 [facility] x10(3)/[facility] LABORATORY Immature Gran % 0.40 % [facility] [...] - 0.04 x10(3)/[facility] LABORATORY Specimen Anatomical Collection Method Collection Time Receive d Time (Source) Location / / Volume Laterality Blood specimen 07/06/2017 2:20 AM 017 2:33 (specimen) EST AM EST Resulting Agency Comment Spec In Lab Daphne Shahid MD HEMATOLOGY ORDERABLES Performing Organization Address City/State/[place] [address] (ABNORMAL) Hemogram (07/06/2017 2:20 AM EST) Analysis Performed At Patho logist Time Signature WBC 7.6 4.0 - 9.5 [facility] x10(3)/[facility] LABORATORY RBC 4.52 (L) 4.58 - [facility] 5.54 [facility] x10(6)/[facility] LABORATORY Hemoglobin 13.4 (L) 13.7 - [facility] 16.5 gm/dL [facility] LABORATORY Hematocrit 39.7 (L) 40.5 - [facility] 48.5 % [facility] LABORATORY MCV 87.8 82.9 - [facility] 93.1 fL [facility] LABORATORY MCH 29.6 27.5 - [facility] 32.1 pg [facility] LABORATORY MCHC 33.8 32.0 - [facility] 35.7 gm/dL [facility] LABORATORY Platelets 189 145 - 357 [facility] x10(3)/[facility] LABORATORY RDWSD 45.6 (H) 36.0 - [facility] 45.0 [facility] LABORATORY RDWCV 14.3 (H) 11.4 - [facility] 13.8 % [facility] LABORATORY MPV 9.1 7.6 - 12.9 [facility] LABORATORY nRBC % Auto 0.0 % [facility] LABORATORY nRBC Abs Auto 0.000 0.000 - [facility] 0.000 [facility] x10(3)/[facility] LABORATORY Specimen Anatomical Collection Method Collection Time Receive d Time (Source) Location / / Volume Laterality Blood specimen 07/06/2017 2:20 AM 017 2:33 (specimen) EST AM EST Resulting Agency Comment Spec In Lab Daphne Shahid MD HEMATOLOGY ORDERABLES Performing Organization Address City/[facility]/ZIP Code Phon e Number [address] (ABNORMAL) APTT (07/06/2017 2:20 AM EST) P athologist Signature PTT 52 (H) 25 - 35 sec [facility] [...] Shahid MD HEMATOLOGY ORDERABLES Performing Organization Address City/[facility]/ZIP Code Phon e Number [address] POCT Glucose (07/06/2017 2:20 AM EST) P athologist Signature POC Glucose 115 65 - 199 [facility] mg/dL [facility] LABORATORY Comment: Supplemental ranges: <140 mg/dL before meals <180 mg/dL all other times of the day Specimen Anatomical Collection Method Collection Time Receive d Time (Source) Location / / Volume Laterality Blood specimen 07/06/2017 2:20 AM 017 2:20 (specimen) EST AM EST Daphne Shahid MD POINT OF CARE TEST ORDERABLE S Performing Organization Address City/[facility]/[place] [address] (ABNORMAL) Cardiac Enzymes (LEB/CGP) (07/06/2017 2:20 AM EST) athologist Signature Troponin-T 2.13 (H) 0.00 - [facility] 0.00 ng/mL [facility] LABORATORY Comment: The 99th percentile for Troponin [...] additional sample may be indicated. Reference: Third [place] Definition of Myocardial Infarction. Journal of the [place] [employer] 2012;60:1581-98 CK, Total 129 0 - 200 unit/L [facility] LABORATORY Specimen Anatomical Collection Method Collection Time Receive d Time (Source) Location / / Volume Laterality Blood specimen 07/06/2017 2:20 AM 017 2:33 (specimen) EST AM EST Resulting Agency Comment Spec In Lab Daphne Shahid MD CHEMISTRY ORDERABLES Performing Organization Address City/State/[place] [address] (ABNORMAL) Hemoglobin A1c (07/06/2017 2:20 AM EST) Analysis Performed At [facility] Time Signature Hemoglobin A1C 6.8 (H) 4.3 - 5.6 [facility] LABORATORY Comment: Reference Range: 4.3 - 5.6% [...] Mellitus, Diabetes Care 2013; 36: Suppl. 1, P17-28 Est Avg Gluc See note mg/dL [facility] Comment: Estimated Average Glucose not [...] into estimated average glucose values. ??Diabetes Care 2008:31(8):9531-0187. Specimen Anatomical Collection Method Collection Time Receive d Time (Source) Location / / Volume Laterality Blood specimen 07/06/2017 2:20 AM 017 2:34 (specimen) EST AM EST Resulting Agency Comment Spec In Lab Daphne Shahid MD CHEMISTRY ORDERABLES Performing Organization Address City/State/[place] [address] (ABNORMAL) Lipid Panel (07/06/2017 2:20 AM EST) [facility] gist Method Time Signature Chol, Total 150 <=239 [facility] mg/dL [facility] Triglycerides 129 <=199 [facility] mg/dL [facility] HDL 32 (L) >=40 [facility] mg/dL [facility] LDL Cholesterol 92 <=190 [facility] mg/dL [facility] Chol/HDL Ratio 4.7 ratio [facility] LABORATORY Lipid See Note [facility]INA Interpretation [facility] Comment: Lipid management should be guided by a p atient? s ASCVD risk, goals and preferences. ACC/AHA Guidelines recommend high intens ity statin if clinical ASCVD or LDL greater than or equal to 190 mg/dL. http://SiCortex.com/ADM-NVM-Vkyplitom Adults aged 40-75 with LDL 70-189 mg/dL should have their 10 year ASCVD risk estimated with the ACC/AHA ASCVD risk es timator http://tools.acc.org/LESSB-Qjnl-Jvqanhfu r/ Statin should be discussed if risk [...] Shahid MD CHEMISTRY ORDERABLES Performing Organization Address City/[facility]/ZIP Code Phon e Number [address] POCT Glucose (07/06/2017 1:09 AM EST) P athologist Signature POC Glucose 121 65 - 199 [facility] mg/dL [facility] LABORATORY Comment: Supplemental ranges: <140 mg/dL before meals <180 mg/dL all other times of the day Specimen Anatomical Collection Method Collection Time Receive d Time (Source) Location / / Volume Laterality Blood specimen 07/06/2017 1:09 AM 017 1:09 (specimen) EST AM EST Daphne Shahid MD POINT OF CARE TEST ORDERABLE S Performing Organization Address City/[facility]/ZIP Code Phon e Number [address] POCT Glucose (07/06/2017 12:06 AM EST) P athologist Signature POC Glucose 147 65 - 199 [facility] RYAN mg/dL [facility] LABORATORY Comment: Supplemental ranges: <140 mg/dL before meals <180 mg/dL all other times of the day Specimen Anatomical Collection Method Collection Time Receive d Time (Source) Location / / Volume Laterality Blood specimen 07/06/2017 12:06 7 (specimen) AM EST 12:06 AM EST Daphne Shahid MD POINT OF CARE TEST ORDERABLE S Performing Organization Address City/[facility]/ZIP Code Phon e Number [address] (ABNORMAL) POCT Glucose (07/05/2017 10:56 PM EST) P athologist Signature POC Glucose 200 (H) 65 - 199 [facility] RYAN mg/dL [facility] LABORATORY Comment: Supplemental ranges: <140 mg/dL before meals <180 mg/dL all other times of the day Specimen Anatomical Collection Method Collection Time Receive d Time (Source) Location / / Volume Laterality Blood specimen 07/05/2017 10:56 7 (specimen) PM EST 10:56 PM EST Daphne Shahid MD POINT OF CARE TEST ORDERABLE S Performing Organization Address City/State/ZIP [place] [address] (ABNORMAL) POCT Glucose (07/05/2017 10:05 PM EST) P athologist Signature POC Glucose 225 (H) 65 - 199 [facility] mg/dL [facility] LABORATORY Comment: Supplemental ranges: <140 mg/dL before meals <180 mg/dL all other times of the day Specimen Anatomical Collection Method Collection Time Receive d Time (Source) Location / / Volume Laterality Blood specimen 07/05/2017 10:05 7 (specimen) PM EST 10:05 PM EST Daphne Shahid MD POINT OF CARE TEST ORDERABLE S Performing Organization Address City/[facility]/ZIP [place] [address] (ABNORMAL) POCT Glucose (07/05/2017 9:02 PM EST) athologist Signature POC Glucose 301 (H) 65 - 199 [facility] mg/dL [facility] LABORATORY Comment: Supplemental ranges: <140 mg/dL before meals <180 mg/dL all other times of the day Specimen Anatomical Collection Method Collection Time Receive d Time (Source) Location / / Volume Laterality Blood specimen 07/05/2017 9:02 PM 017 9:02 (specimen) EST PM EST Daphne Shahid MD POINT OF CARE TEST ORDERABLE S Performing Organization Address City/State/ZIP [place] [address] XR Chest PA or [...] 474 ms MUSE SYSTEM (Bezet) Calculated P [place] 50 degrees MUSE SYSTEM Calculated R [place] -28 degrees MUSE SYSTEM Calculated T [place] 90 degrees MUSE SYSTEM INTERPRETATION Sinus tachycardia [...] (ABNORMAL) Differential, Automated (07/05/2017 8:20 PM EST) [facility] Method Time Signature Neutrophils % 88.4 % [facility] LABORATORY Neutr Abs (ANC) 9.08 (H) 1.70 - [facility] 6.10 [facility] x10(3)/[facility] L LABORATORY Lymphocytes % 7.0 % [facility] LABORATORY Lymphocytes Abs 0.7 (L) 0.9 - 3.2 [facility] x10(3)/[facility] LABORATORY Monocytes % 3.7 % [facility] LABORATORY Monocyte Abs 0.4 0.3 - 0.9 [facility] x10(3)/[facility] LABORATORY Eosinophils % 0.1 % [facility] LABORATORY Eosinophils Abs 0.0 0.0 - 0.4 [facility] x10(3)/[facility] LABORATORY Basophils % 0.2 % [facility] LABORATORY Basophils Abs 0.0 0.0 - 0.1 [facility] x10(3)/[facility] LABORATORY Immature Gran % 0.60 % [facility] [...] Gran Abs 0.06 (H) 0.00 - 0.04 x10(3)/[facility] LABORATORY Specimen Anatomical Collection Method Collection Time Receive d Time (Source) Location / / Volume Laterality Blood specimen 07/05/2017 8:20 PM 017 8:27 (specimen) EST PM EST Resulting Agency Comment Spec In Lab Daphne Shahid MD HEMATOLOGY ORDERABLES Performing Organization Address City/State/[place] [address] (ABNORMAL) Hemogram (07/05/2017 8:20 PM EST) Analysis Performed At Patho logist Time Signature WBC 10.3 (H) 4.0 - 9.5 [facility] x10(3)/[facility] LABORATORY RBC 4.64 4.58 - [facility] 5.54 [facility] x10(6)/[facility] LABORATORY Hemoglobin 14.1 13.7 - [facility] 16.[facility] gm/dL [facility] LABORATORY Hematocrit 40.8 40.5 - [facility] 48.5 % [facility] LABORATORY MCV 87.9 82.9 - [facility] 93.1 [facility] LABORATORY MCH 30.4 27.5 - [facility] 32.1 pg [facility] LABORATORY MCHC 34.6 32.0 - [facility] 35.7 gm/dL [facility] LABORATORY Platelets 204 145 - 357 [facility] x10(3)/[facility] LABORATORY RDWSD 46.1 (H) 36.0 - [facility] 45.0 [facility] LABORATORY RDWCV 14.5 (H) 11.4 - [facility] 13.8 % [facility] LABORATORY MPV 9.7 7.6 - 12.9 [facility] LABORATORY nRBC % Auto 0.0 % [facility] LABORATORY nRBC Abs Auto 0.000 0.000 - [facility] 0.000 [facility] x10(3)/[facility] LABORATORY Specimen Anatomical Collection Method Collection Time Receive d Time (Source) Location / / Volume Laterality Blood specimen 07/05/2017 8:20 PM 017 8:27 (specimen) EST PM EST Resulting Agency Comment Spec In Lab Daphne Shahid MD HEMATOLOGY ORDERABLES Performing Organization Address City/State/[place] [address] APTT (07/05/2017 8:20 PM EST) P athologist Signature PTT 32 25 - 35 sec [facility] LABORATORY [...] Organization Address City/State/[place] [address] (ABNORMAL) Cardiac Enzymes (LEB/CGP) (07/05/2017 8:20 PM EST) athologist Signature Troponin-T 2.11 (H) 0.00 - [facility] 0.00 ng/mL [facility] LABORATORY Comment: The 99th percentile for Troponin [...] additional sample may be indicated. Reference: Third [place] Definition of Myocardial Infarction. Journal of the [place] [employer] Cardiology 2012;60:1581-98 CK, Total 149 0 - 200 unit/L [facility] LABORATORY Specimen Anatomical Collection Method Collection Time Receive d Time (Source) Location / / Volume Laterality Blood specimen 07/05/2017 8:20 PM 017 8:27 (specimen) EST PM EST Resulting Agency Comment Spec In Lab Daphne Shahid MD CHEMISTRY ORDERABLES Performing Organization Address City/State/ZIP Code Phon e Number [address] (ABNORMAL) Magnesium (07/05/2017 8:20 PM EST) P athologist Signature Magnesium 0.68 (L) 0.69 - 1.07 [facility] mmol/L [facility] LABORATORY Specimen Anatomical Collection Method Collection Time Receive d Time (Source) Location / / Volume Laterality Blood specimen 07/05/2017 8:20 PM 017 8:27 (specimen) EST PM EST Resulting Agency Comment Spec In Lab Daphne Shahid MD CHEMISTRY ORDERABLES Performing Organization Address City/[facility]/ZIP Code Phon e Number [address] (ABNORMAL) Basic Metabolic Panel (non-fasting) (07/05/2017 8:20 PM EST) athologist Signature Glucose Lvl 321 (H) 65 - 199 [facility] mg/dL [facility] LABORATORY Comment: Diabetes: >=200 mg/dL plus symp [...] [facility] LAB[facility] Estimated GFR >60 >=60 [facility] LABORATORY Comment: The reported eGFR should be multiplied b y 1.2 for patients. The MDRD is not an appropriate measure o f renal function for patients with body mass extremes or in patients with acute kidney failure. http://SiCortex.800razors/DHnkdep http://SimpleSite/DHMCnkf Specimen Anatomical Collection Method Collection Time Receive d Time (Source) Location / / Volume Laterality Blood specimen 07/05/2017 8:20 PM 017 8:27 (specimen) EST PM EST Resulting Agency Comment Spec In Lab Daphne Shahid MD CHEMISTRY ORDERABLES Performing Organization Address City/State/ZIP Code Phon e Number [address] (ABNORMAL) POCT Glucose (07/05/2017 7:32 PM EST) P athologist Signature POC Glucose 296 (H) 65 - 199 [facility] mg/dL [facility] LABORATORY Comment: Supplemental ranges: <140 mg/dL before meals <180 mg/dL all other times of the day Specimen Anatomical Collection Method Collection Time Receive d Time (Source) Location / / Volume Laterality Blood specimen 07/05/2017 7:32 PM 017 7:32 (specimen) EST PM EST Daphne Shahid MD POINT OF CARE TEST ORDERABLE S Performing Organization Address City/State/ZIP [place] [address] CARDIAC CATHETERIZATION (07/05/2017 6:47 PM EST) Specimen (Source) Anatomical Location Collection Method / Collectio n Time Received Time / Laterality Volume Narrative CARDIOMAC SYSTEM - 07/05/2017 7:27 PM ES T ?[facility] ? Cardiac Cathete rization/Intervention Report ? Patient Name: Gregory Hoang ? Procedure Date: 07/05/2017 ? A #: [id number] ? Primary Physician: Clarisa, Jet T ? Case #: [id number] ? File Name: [id number] ? Catheterization Order Number: [id number] ? [facility] ? Final Report [place], [place] ? Patient Name: ? Gregory Natalya ?ID#: ?[id number] ? : ?1945 ? Procedure Date: ? June 11 17 ?Case #: ? [id number] ? Room: ? 6 ? Case Physician: [...] presented with: non -STEMI (w/i 7 days). [place] ?[employer] angina c lass was IV. [...] site angio graphy and IABP insertion in asset availability leader. ? Jet Mckenna M.D. ? Electronically Signed by: Jet bunch M.D. ? Report Finalized: 07/05/2017 ??19:23 ? Report Last Ammended: 10/26/2017 ??10:29 ? Procedure Note Jet Mckenna MD - 10/26/2017Formatt ing of this note might be different from the original. [facility] Cardiac Catheterization/Intervention Re port Patient Name: Gregory Hoang Procedure Date: 07/05/2017 A #: [id number] Primary Physician: Jet Mckenna Case #: [id number] File Name: [id number] Catheterization Order Number: [id number] [facility] Final Report [place], [place] Patient Name: Gregory Hoang ID#: [id number] : 1945 Procedure Date: July 05, [...] presented with: non-STEMI ( w/i 7 days). [place] [employer] angina class was IV. No [...] site angiograph y and IABP insertion in asset availability leader. Jet Mckenna M.D. Electronically Signed by: Jet [...] Mccollum ? (Age): 1945(72y) Med Rec#: ? [id number] ?Sex: ?M ? Site Loc: ? [place] ?Ht / Wt: ??173(cm)/86(kg) Pt. Loc: ?[facility] ? BSA: ?2 Study Date: ?? 07/05/2017 ?Pt. Type: Inpatient Tape: ? Referring: Daphne Shahid ([id number]) Referring: MANDA ALCANTAR Reading: Blade Preston ([id number]) Boat Motor Mechanic: Dayami Paula BA, [facility] Diagnosis: *ICD-10-PCS Non-ST elevation (NSTEMI) m [...] E-wave Vmax ?0.8 ?m/sec ? MV deceleration [id number] ?msec ? MV A-wave Vmax ?0.8 ?m/sec [...] ? Mid-Inferior ?Akinetic ? Mid-Inferoseptal ?Hypokinetic ? Valier-Septal ? Akinetic ? Valier-Anterior ? Hypokinetic ? Valier-Lateral ?Hypokinetic ? [place]ier-Inferior ? Akinetic ? Valier-Tip ?Akinetic ? This report has been electronically sign ed by: _ Blade Preston MD ? 07/06/2017 08 :53:15 Images reviewed and interpretation verif ied [facility] Cardiac Ultrasound Laboratory Procedure Note Blade Preston MD - 07/06/2017Formatt ing of this note might be different from the original. Procedure: Transthoracic Echocardiogram Patient: NATALYA MCBRIDE(Age): [birth year]72y) Med Rec#: [id number] Sex: M Site Loc: [place] Ht / Wt: 173(cm)/86(kg) Pt. Loc: [facility]U BSA: 2 Study Date: 07/05/2017 Pt. Type: Inpatie nt Tape: Referring: Daphne Shahid ([id number]) Referring: MANDA ALCANTAR Reading: Blade Preston ([id number]) Boat Motor Mechanic: Dayami Paula BA, [facility] Diagnosis: *ICD-10-PCS Non-ST elevation (NSTEMI) m [...] MV E-wave Vmax 0.8 m/sec MV deceleration [id number] msec MV A-wave Vmax 0.8 m/sec MV [...] Hypokinetic Mid-Posterolateral Hypokinetic Mid-Inferior Akinetic Mid-Inferoseptal Hypokinetic Valier-Septal Akinetic Valier-Anterior Hypokinetic Valier-Lateral Hypokinetic Valier-Inferior Akinetic Valier-Tip Akinetic This report has been electronically sign ed by: _ Blade Preston MD 07/06/2017 08:53:15 Images reviewed and interpretation verif ied [facility] Cardiac Ultrasound Laboratory Daphne Shahid MD ECHO ORDERABLES Performing Organization Address City/State/ZIP Code Phon e Number [facility] Differential, Automated (07/05/2017 4:55 PM EST) P athologist Signature Neutrophils % 77.0 % [facility] LABORATORY Neutr Abs (ANC) 5.26 1.70 - [facility] 6.10 [facility] x10(3)/[facility] LABORATORY Lymphocytes % 13.3 % [facility] LABORATORY Lymphocytes Abs 0.9 0.9 - 3.2 [facility] x10(3)/[facility] LABORATORY Monocytes % 8.2 % [facility] LABORATORY Monocyte Abs 0.6 0.3 - 0.9 [facility] x10(3)/[facility] LABORATORY Eosinophils % 0.7 % [facility] Eosinophils Abs 0.0 0.0 - 0.4 [facility] x10(3)/[facility] LABORATORY Basophils % 0.4 % [facility] LABORAT[facility] Basophils Abs 0.0 0.0 - 0.1 [facility] x10(3)/[facility] LABORATORY Immature Gran % 0.40 % [facility] [...] - 0.04 x10(3)/[facility] LABORATORY Specimen Anatomical Collection Method Collection Time Receive d Time (Source) Location / / Volume Laterality Blood specimen 07/05/2017 4:55 PM 017 5:24 (specimen) EST PM EST Resulting Agency Comment Spec In Lab Daphne Shahid MD HEMATOLOGY ORDERABLES Performing Organization Address City/State/[place] [address] (ABNORMAL) Hemogram (07/05/2017 4:55 PM EST) Analysis Performed At Patho logist Time Signature WBC 6.8 4.0 - 9.5 [facility] x10(3)/[facility] LABORATORY RBC 4.67 4.58 - [facility] 5.54 [facility] x10(6)/[facility] LABORATORY Hemoglobin 14.0 13.7 - [facility] 16.5 gm/dL [facility] LABORATORY Hematocrit 41.0 40.5 - [facility] 48.5 % [facility] LABORATORY MCV 87.8 82.9 - [facility] 93.1 fL [facility] LABORATORY MCH 30.0 27.5 - [facility] [address] [facility] MCHC 34.1 32.0 - [facility] 35.7 gm/dL [facility] LABORATORY Platelets 197 145 - 357 [facility] x10(3)/[facility] LABORATORY RDWSD 46.4 (H) 36.0 - [facility] 45.0 [facility] LABORATORY RDWCV 14.5 (H) 11.4 - KATALINA DAVIS 13.8 % [facility] LABORATORY MPV 9.7 7.6 - 12.9 KATALINA DAVIS [facility] LABORATORY nRBC % Auto 0.0 % [facility] LABORATORY nRBC Abs Auto 0.000 0.000 - KATALINA DAVIS 0.000 [facility] x10(3)/[facility] LABORATORY Specimen Anatomical Collection Method Collection Time Receive d Time (Source) Location / / Volume Laterality Blood specimen 07/05/2017 4:55 PM 017 5:24 (specimen) EST PM EST Resulting Agency Comment Spec In Lab Daphne Shahid MD HEMATOLOGY ORDERABLES Performing Organization Address City/State/ZIP Code Phon e Number [place] [address] (ABNORMAL) Cardiac Enzymes (LEB/CGP) (07/05/2017 4:55 PM EST) P athologist Signature Troponin-T 1.69 (H) 0.00 - KATALINA DAVIS 0.00 ng/mL [facility] LABORATORY Comment: The 99th percentile for Troponin [...] additional sample may be indicated. Reference: Third [place] Definition of Myocardial Infarction. Journal of the [place] College [employer]iology 2012;60:1581-98 CK, Total 191 0 - 200 unit/L [facility] LABORATORY Specimen Anatomical Collection Method Collection Time Receive d Time (Source) Location / / Volume Laterality Blood specimen 07/05/2017 4:55 PM 017 5:56 (specimen) EST PM EST Resulting Agency Comment Spec In Lab Daphne Shahid MD CHEMISTRY ORDERABLES Performing Organization Address City/[facility] [place] [address] (ABNORMAL) pro-Brain Natriuretic Peptide (07/05/2017 4:55 PM EST) P athologist Signature ProBNP 1,598 (H) <=125 [facility] pg/mL [facility] LABORATORY Specimen Anatomical Collection Method Collection Time Receive d Time (Source) Location / / Volume Laterality Blood specimen 07/05/2017 4:55 PM 017 5:24 (specimen) EST PM EST Resulting Agency Comment Spec In Lab Daphne Shahid MD CHEMISTRY ORDERABLES Performing Organization Address City/[facility] [place] [address] Magnesium (07/05/2017 4:55 PM EST) P athologist Signature Magnesium 0.78 0.69 - 1.07 [facility] mmol/L [facility] LABORATORY Specimen Anatomical Collection Method Collection Time Receive d Time (Source) Location / / Volume Laterality Blood specimen 07/05/2017 4:55 PM 017 5:24 (specimen) EST PM EST Resulting Agency Comment Spec In Lab Daphne Shahid MD CHEMISTRY ORDERABLES Performing Organization Address City/[facility]/ZIP [facility] [place] [address] (ABNORMAL) Basic Metabolic Panel (non-fasting) (07/05/2017 4:55 PM EST) athologist Signature Glucose Lvl 230 (H) 65 - 199 [facility] mg/dL [facility] LABORATORY Comment: Diabetes: >=200 mg/dL plus symp toms BUN 19 10 - 20 mg/dL [facility] LABORATORY Creatinine 1.04 0.80 - 1.50 mg/dL [facility] [...] [facility] Estimated GFR >60 >=60 [facility] LABORATORY Comment: The reported eGFR should be multiplied b y 1.2 for patients. The MDRD is not an appropriate measure o f renal function for patients with body mass extremes or in patients with acute kidney failure. http://SiCortex.800razors/DHnkdep http://SimpleSite/DHMCnkf Specimen Anatomical Collection Method Collection Time Receive d Time (Source) Location / / Volume Laterality Blood specimen 07/05/2017 4:55 PM 017 5:24 (specimen) EST PM EST Resulting Agency Comment Spec In Lab Daphne Shahid MD CHEMISTRY ORDERABLES Performing Organization Address City/State/[place] [address] (ABNORMAL) APTT (07/05/2017 4:55 PM EST) athologist Signature PTT 41 (H) 25 - 35 sec [facility] [...] Shahid MD HEMATOLOGY ORDERABLES Performing Organization Address City/[facility]/ZIP Code Phon e Number [address] (ABNORMAL) POCT Glucose (07/05/2017 4:53 PM EST) P athologist Signature POC Glucose 208 (H) 65 - 199 [facility] mg/dL [facility] LABORATORY Comment: Supplemental ranges: <140 mg/dL before meals <180 mg/dL all other times of the day Specimen Anatomical Collection Method Collection Time Receive d Time (Source) Location / / Volume Laterality Blood specimen 07/05/2017 4:53 PM 017 4:53 (specimen) EST PM EST Daphne Shahid MD POINT OF CARE TEST ORDERABLE S Performing Organization Address City/[facility] [place] [address] EKG 12 Lead (07/05/2017 4:32 PM EST) Component Value Ref Range Test Analysis Performed Pathologis t Method Time At Signature Ventricular rate 97 BPM MUSE SYSTEM Atrial Rate 97 BPM MUSE SYSTEM P-R Interval 148 ms MUSE SYSTEM QRS Duration 96 ms MUSE SYSTEM Q-T Interval 364 ms MUSE SYSTEM QTC Calculated 462 ms MUSE SYSTEM (Bezet) Calculated P [place] 48 degrees MUSE SYSTEM Calculated R [place] -33 degrees MUSE SYSTEM Calculated T [place] 98 degrees MUSE SYSTEM INTERPRETATION Normal sinus [...] now evident in Lateral leads Confirmed by LAINA, MD, CALVIN ([id number]) on 07/05/2017 9:56:47 PM Specimen Anatomical Collection Method Collection Time Receive d Time (Source) Location / / Volume Laterality 07/05/2017 4:32 PM 7 9:56 EST PM EST Daphne Shahid MD ECG ORDERABLES Performing Organization Address City/State/ZIP Code Phon e Number [facility] documented in this encounter Visit Diagnoses Diagnosis STEMI (ST elevation myocardial infarctio n) - Primary Acute myocardial infarction, unspecified site, episode of care unspecified Non-ST elevation myocardial infarction ( NSTEMI) Acute myocardial infarction, subendocard ial infarction, episode of care unspecified S/P CABG x 3 Postsurgical aortocoronary bypass status ASHD (arteriosclerotic heart disease) Coronary atherosclerosis of unspecified type of vessel, [place] or graft Cardiomyopathy, ischemic Other specified [...] dose on Wed07/07/17 at 2100, Until Discontinued, [place] teeth, Routine Given 07/08/2017 10:06 PM EST [...] or norepinephrine is ineffective. Call pager # [phone] if initiated. Rate/Dose Change 07/08/2017 7:01 PM [...] Units insulin regular human Bolus from 07/08/2017 4:14 AM EST 8 Units (HumuLIN;NovoLIN) [...] Starting on Ivis 07/08/17 at 0427, Until 07/11/17 at 0909, Per Protocol, BOLUS order. [...] ONCE PRN, 1 dose, S tarting on 07/11/17 at 1619, Until Wed07/14/17 at 1639, [...] if phenyleprine and/or vasopressin ineffective.Call pager # [phone] if initiated., Routine Rate/Dose Change 07/09/2017 1:24 [...] 2.0 L/min/M2. Maximum volume 2 L. Call chief transfer and pumphouse operator for additional fluid orders: pager #[phone]. Rate/Dose Verify 07/08/2017 4:00 AM EST 100 mL/hr 100 mL/hr Rate/Dose Verify 07/08/2017 2:00 AM EST 100 mL/hr 100 mL/hr sodium chloride 0.9% Rate/Dose Verify 07/09/2017 8:00 AM 30 mL/hr 3 0 mL/hr infusion EST 10-30 mL/hr, Intravenous, DAILY PRN, Starting on Wed07/07/17 at 1839, Until Wed07/11/17 at 1304, Side port TKO rate, per CV nursing protocol. Rate/Dose Verify 07/09/2017 6:00 AM EST 30 mL/hr 30 mL/hr Rate/Dose Verify 07/09/2017 4:00 AM EST 30 mL/hr 30 mL/hr sodium chloride 0.9% Rate/Dose Verify 07/11/2017 10:00 AM 20 mL/hr 20 mL/hr infusion EST 10-30 mL/hr, Intravenous, DAILY PRN, Starting on Wed07/07/17 at 1839, Until Wed07/11/17 at 1304, Side port TKO rate, per CC nrusing protocol. Rate/Dose Change 07/11/2017 8:00 AM [...] Jones RN)1738 (New Bag - Provider: Em Jones, VAMSI) [...] Em Jones, VAMSI)1307 (Given - Provider: Em Jones, VAMSI) 0-20 Units, Subcutaneous, 3 TIMES DAILY WITH MEALS, First dose on 07/10/17 at 1200, Until Discontinued, MEAL ASSOCIATED Give 1 unit for every 5 grams carbohydrate. Hold if not eating or if BS <90, Routine levothyroxine (SYNTHROID) tablet 175 mcg 0521 (Given - Provider: Carmen Berry RN) 0615 (Given - Provider: Ale Rangel, VAMSI) 0530 (Gi cody - Provider: Denice Jacobson, RN) 175 mcg, Oral, EVERY MORNING, First [...] Contraindicated) 0922 (See Alternative - Provider: Zac Young, VAMSI) 40 mg, Intravenous, DAILY, First dose on [...] Jacobson RN) 0532 (Given - Provider: Denice Jacobson, VAMSI)1330 [...] RN) 1400 (Dose confirmed - Provider: Em Jones, VAMSI) 1400 (Dose confirmed - Provider: Myrna Young RN - Comment: on DC) Oral, EVERY 24 HOURS, First dose on Wed07/12/17 at 1400, Until Discontinued, If the daily warfarin order has not been placed, contact the Provider to confirm that the order will be written, the dose is held or discontinued. warfarin (COUMADIN) tablet 2.5 mg (COMPLETED) 1738 (Given - Provider: Em Jones, RN) 2.5 [...] mg, Rectal, DAILY PRN, Starting on Sa 07/10/17 at 0000, Until Wed07/14/17 at 1639, [...] documented in this encounter Care Teams Machine Guide Base Winder Relationship Specialty Start Date End Date Lovely Vicente MD PCP - General 04/16/[address] [place] [address] [address] [place] [address] documented as of this encounter
--- OUTSIDE RECORDS SUMMARY | 2022-02-25 08:17 | XMS_ITS | Encounter Summary ---
:1945 Author Organization [facility] [place] [place] [address] Care Team Providers Name Role Phone Lovely Vicente MD Primary Care Provider Encounter Details Date Type Department Care Team Description 07/08/[address] [facility] [place] [address] Social History Tobacco Use Types Packs/Day [...] MD [facility] [address] [place], [place] [address] (Wo rk) 06/10/2022 Office Visit Dermatology Laura Scherer MD [facility] [address] [place], [place] [address] (Wo rk) documented as of [...] Mccollum ? (Age): 1945(72y) Med Rec#: ? [id number] ?Sex: ?M ? Site Loc: ? Ht / Wt: ??(cm)/ (kg) ? Pt. Loc: ? Study Date: ?? 07/07/2017 ?Pt. Type: Tape: ? Referring: Yuan Retana Reading: Yifan Peerz MD ([id number]) Performing: Yifan Perez MD ([id number]) Diagnosis: SUMMARY: 1. [facility] for the diagnosis [...] ? Mid-Inferior ?Hypokinetic ? Mid-Inferoseptal ?Hypokinetic ? [place]-Septal ? Hypokinetic ? [place]-Anterior ? Hypokinetic ? [place]-Lateral ?Hypokinetic ? [place]-Inferior ? Hypokinetic ? [place]-Tip ?Not Seen ? This report has been electronically sign ed by: _ Yifan Perez MD ? 07/08/2017 12 :25:18 Images reviewed and interpretation [facility] Card[facility] Procedure Note Yifan Perez MD - 07/08/2017Formatt ing of this note might be different from the original. Procedure: Transesophageal Echocardiogra m Patient: NATALYA MCBRIDE(Age): [birth year]72y) Med Rec#: [id number] Sex: M Site Loc: Ht / Wt: (cm)/ (kg) Pt. Loc: Study Date: 07/07/2017 Pt. Type: Tape: Referring: Yuan Retana Reading: Yifan Perez MD ([id number]) Performing: Yifan Perez MD ([id number]) Diagnosis: SUMMARY: 1. [facility]INO [facility] for the diagnosis [...] Hypokinetic Mid-Posterolateral Hypokinetic Mid-Inferior Hypokinetic Mid-Inferoseptal Hypokinetic [place]-Septal Hypokinetic [place]-Anterior Hypokinetic [place]-Lateral Hypokinetic [place]-Inferior Hypokinetic [place]-Tip Not Seen This report has been electronically sign ed by: _ Yifan Perez MD 07/08/2017 12:25:18 Images reviewed and interpretation verif ied [facility] Cardiac Ultrasound Laboratory Unknown ECHO ORDERABLES Performing Organization Address City/State/ZIP Code Phon e Number [facility] documented in this encounter Visit Diagnoses Not on filedocumented in this encounter Care Teams Cement Mason Relationship Specialty Start Date End Date Lovely Vicente MD PCP - General 04/16/[address] [place] [address] documented as of this encounter
--- OUTSIDE RECORDS SUMMARY | 2022-02-25 08:18 | XMS_ITS | Encounter Summary ---
:1945 [place] [address] Care Team Providers Name Role Phone Lovely Vicente MD Primary Care Provider Reason for Visit Auth/Cert Specialty Diagnoses / Procedures Referred By Contact Refer red To Contact Diagnoses STEMI (ST elevation myocardial infarction) NSTEMI STEMI Procedures CARDIAC CATHETERIZATION NAYE IPI Referral ID Status Reason Start Date Expiration Date Visits Requ ested Visits Authorized [id number] 1 1 Encounter Details Date Type Department Care Team Description 07/07/2017 Anesthesia Event Main Operating Room Yifan Jaime MD [facility] [place] [address] [facility] Ginny Murray MD [facility] [place] [address] [facility] [place] [address] Anesthesia Record Procedure Summary Procedure Name [...] 2342 LDA Cath/EP Sheath 07/05/17; 0606; 8 Monegasque 07/05/17 0606 by [id number] by (Fr); Right; Femoral [place], aYne Cook, RN PIV 07/05/17; 1720; median 07/05/17 1720 by 07/11/17 2355 by vein (underside of arm), Prior, Yanet Maza, VAMSI Crum, Angela Gomes, left; 18 gauge; removed CORRECTIONAL MAINTENANCE TECHNICIAN per policy/procedure; 07/11/17; 2355 Intra-Aortic Balloon 07/05/17; [...] Miller, Carrie L, Type: Cuffed; ETT Size: COUNTY PROGRAM TECHNICIAN 8 mm; Santiago Blade: 2; Notes: Asleep, Pre-O2; Attempts: 1; Laryngoscopy Grade: 1; ETT Placement Verified By: Auscultation, Capnometry, Visual; Secured at Teeth: 23 cm; Inserted by: gretrudis Arterial Line 07/07/17; 1423; radial 07/07/17 1423 [...] Murray MD - 07/08/2017 5:08 PM EST [facility] Department of Anesthesiology Post-procedure Note Patient: Don Fatima Procedure Summary Date Anesthesia Start Anesthesia Stop Room / Location 07/07/17 1335 1836 [facility] OR [facility] MAIN OR Procedure Diagnosis Surgeon Responsible Provider @CABG, USING ARTERIAL GRAFT;SINGLE ARTERIAL GRAFT (WRVU 33.75) (N/A Chest); @CABG, TWO VENOUS GRAFTS & ARTERIAL GRAFT (WRVU 7.93) (N/A Chest); ENDOSCOPIC HARVEST VEIN(S) FOR CABG (WRVU 0.31) (Right Leg) (CAD) Yuan Freitas MD Hartman, Gregg S, MD All Anesthesia Providers: Anesthesiologist: Yifan Perez MD Footwear Production Machine Operator: Ginny Murray MD Most Recent [...] [facility] MAIN OR Social History Substance [...] MD [facility] ER [address] [place], [place] [address] (Wo rk) 06/10/2022 Office Visit Dermatology Laura Scherer MD [facility] [address] [place], [place] [address] (Wo rk) documented as of [...] mg documented in this encounter Care Teams Hydraulic Jack Operator Relationship Specialty Start Date End Date Lovely Vicente MD PCP - General 04/16/[address] [place] [address] documented as of this encounter
--- OUTSIDE RECORDS SUMMARY | 2022-02-25 08:18 | XMS_ITS | Encounter Summary ---
:1945 Author Organization [facility] Address [facility] [place] [address] Care Team Providers Name Role Phone Lovely Vicente MD Primary Care Provider Reason for Visit Auth/Cert Specialty Diagnoses / Procedures Referred By Contact Refer red To Contact Diagnoses STEMI (ST elevation myocardial infarction) NSTEMI STEMI Procedures CARDIAC CATHETERIZATION NAYE IPI Referral ID Status Reason Start Date Expiration Date Visits Requ ested Visits Authorized [id number] 1 1 Encounter Details Date Type Department Care Team Description 07/07/2017 Surgery Main Operating Room Yuan Webber, @ CABG, USING ARTERIAL Barbara Ocampo MD GRAFT;SINGLE ARTERIAL Hospital [facility] GRAFT (WRVU 33.75) [facility] [address] Sidd[place] [address] SURGERY [phone] [place], [place] [address] (Wo rk) Social History Tobacco [...] in this encounter Discharge Summaries Martha Teague, PRESS FEEDER BROOMCORN - 07/14/2017 9:38 AM EST Inpatient - Discharge Summary Patient Name: Gregory Hoang Patient Age: 72 y.o. Birthdate: 1945 Language: Chinese Race: White Ethnicity: Not nor Admit Date: [...] , @ 1:20p Patient to follow-up with Tattoo And Body Artist/heart failure team in one week. An appointment will be made for you. You may call [phone] Patient to follow-up with Cardiac Surgery, Dr. Yuan Webber, in ~ 4 weeks with CXR, EKG. Inpatient Provider Contact Information: [facility] Section of Cardiac Surgery [facility] [place] [address] FAX [phone] Discharge Diagnoses (Hospital Problems) Primary Diagnoses: CAD [...] SETUP performed by Manny Mcknight MD at [facility] OR ??? PRO CABG, ARTERIAL, SINGLE N/A 07/07/2017 @CABG, USING ARTERIAL GRAFT;SINGLE ARTERIAL GRAFT (WRVU 33.75) performed by Yuan Webber MD at [facility] OR ??? PRO CABG, ARTERY-VEIN, TWO N/A 07/07/2017 @CABG, TWO VENOUS GRAFTS & ARTERIAL GRAFT (WRVU 7.93) performed by Yuan Webber MD at [facility] OR ??? PRO COLONOSCOPY, REMV LESN, SNARE 01/16/2014 COLONOSCOPY, POLYPECTOMY, REMOVAL LESION BY SNARE performed by Nohemi Jaimes MD at [facility] ENDOSCOPY ??? PRO ENDOSCOPY W/VIDEO-ASST VEIN HARVEST, CABG Right 07/07/2017 ENDOSCOPIC HARVEST VEIN(S) FOR CABG (WRVU 0.31) performed by Yuan Webber MD at [facility] OR ??? PRO THYROIDECTOMY 03/28/2013 THYROIDECTOMY, TOTAL OR COMPLETE performed by Manny Mcknight MD at [facility] OR Prior To Admission Medications Prescriptions Prior to Admission Medication Sig Dispense Refill Last Dose ??? levothyroxine (SYNTHROID) 175 mcg Tablet Take 1 tablet by mouth daily. 90 tablet 3 07/05/2017 [id number] ??? ascorbic acid, vitamin C, (VITAMIN C) [...] hospital and ruled infor non-ST segment elevation [place]. This almost certainly represents the residual of [...] Gregory Hoang was admitted to [facility] on 07/05/2017 via the Cardiology Service. During his hospital course, he was taken emergently to the animal laboratory helper for an ongoing STEMI. An IABP was [...] not take or discontinue any prescription or xams-ffo-wdkyghy medications without asking your doctor or pharmacist [...] day to have your insulin doses adjusted. [facility] Endocrine clinic office Discharge Instructions: Call your doctor if: You have a fever of greater than 101 degrees, shaking chills, if you develop redness or drainage from your incision sites, or if you have questions. Please call your surgeon's office if you have any discharge or drainage from your chest incision. Your surgeon, Dr. Yuan Webber and/or the Cardiac Surgery Physician Asset Protection Specialist Team may be reached at . [...] Dr. Yuan Webber. You may use a [place] Track or treadmill but avoid any pulling [...] friends, go to a movie, go to bahai, etc. Heavy activities: No hunting, skiing, jogging, snow shoveling, snowmobiling, lawn mowing, swimming, golf or tennis until after your return appointment with the surgeon. Do not ride motorcycles, [employer]'s tractors or horses. Avoid the use of [...] should resume a low fat, low cholesterol, Danish Heart Association Diet/Diabetic diet. Driving: No driving [...] , @ 1:20p Patient to follow-up with Tattoo And Body Artist/heart failure team in one week. Appointment will be made for you. You may call [phone] Patient to follow-up with Cardiac Surgery, Dr. Yuan Webber, in ~ 4 weeks with CXR, EKG. Cardiac Rehabilitation: Gregory Hoang was seen today regarding participation in the outpatient Phase 2 Cardiac Rehabilitation at [facility]. The patient agrees to a referral to this program. The referral will be sent at discharge and the patient should be contacted by the Program within 1- 2 weeks from discharge. ?? Future Appointments and Orders Future Appointments Provider Department Dept Phone 09/07/2017 3:00 PM LAB, THREE L Lab 3L [facility] [phone] 09/07/2017 4:00 PM Luz Prescott MD [facility]ocrinology at [place] [phone] Future Orders Complete By Expires EKG 12 Lead [EKG1 Custom] 08/14/2017 02/13/2018 Process Instructions: Scheduling Instructions: Questions: Which DH location will this be performed?: [place] Is a rhythm strip needed?: No If EKG Reason is Pre-op Evaluation, indicate diagnosis for surgery.: XR Chest PA & Lateral (Generic) [22702 [id number] Custom] 08/14/2017 02/13/2018 Process Instructions: Scheduling Instructions: Questions: Where will study be performed?: [facility] Portable exam?: Reason for exam and clinical history: CABG x 3 Other pertinent information: Stat read required?: Date of injury if applicable: Requested Time: Referral to Cardiac Rehab [[id number] Custom] As directed Process Instructions: If no progress note charted, please enter Clinical details in comments. Scheduling Instructions: Questions: My question or request is: s/p CABG. Cardiac rehab at [facility] Referral to Home Health - at DISCHARGE [XDO8051 CPT(R)] As directed Process Instructions: Scheduling Instructions: Comments: DOCUMENTATION FOR VNA SERVICES (INCLUDING THOSE PATIENTS WITH MEDICARE COVERAGE REQUIRING HOME VNA SERVICES AND/OR HOSPICE SERVICES) PATIENT'S LOCATION: Gregory Hoang [address] [place] [address] [place] [id number] (home) Telephone Information: Printing Machine Operator Tape Rules's Name: self In discussion with the attending physician, it is certified that this patient is under their care and that they, or a Nurse Practitioner, or Physician Asset Protection Specialist who is working directly with them, [...] HEALTH AGENCY: [facility] ([facility] [place] [facility]-is in [place]) PHONE: [phone] FAX: [phone] RN orders: Cardiopulmonary assessment, incisional assessment, assess vital signs, assessment of rehab progress, medication management and effectiveness, home safety evaluation. Please draw INR if indicated and send result to:Dr Vicente [phone] PT ORDERS: Continue rehab for endurance, gait stability and strength with mobility and transfers. Home safety evaluation. Home exercise program if appropriate. Start of Care Date:24-48 hours after discharge SPECIAL INSTRUCTIONS: For any follow up questions, needs, or issues please call the Cardiac Surgery Office at [phone] FOR MEDICARE ONLY: (please delete this section [...] noted. Questions: Agency name and contact information: [facility] Patient location post discharge: home What services are requested: Registered Nurse Physical Therapy Start date: Responsible MD post discharge contact info: PCP Arrangements for VNA/home care: As above. VN RN OR PCP TO PLEASE REMOVE CHEST TUBE SUTURES ON OR AFTER 07/17/2017 Signed: Martha Teague APRN [facility] Section of Cardiac Surgery [facility] [place] [address] FAX [phone] Date: 07/14/2017 CC: MD Ivania Cr Betsy, PA [address] [place] [phone] documented in this encounter Discharge Instructions Discharge [...] day to have your insulin doses adjusted. [facility] Endocrine clinic office Patient InstructionsStMartha mcdonald APRN [...] not take or discontinue any prescription or ulzj-vek-gwkpahh medications without asking your doctor or pharmacist [...] day to have your insulin doses adjusted. [facility] Endocrine clinic office ? Discharge Instructions: ?? Call your doctor if: You have a fever of greater than 101 degrees, shaking chills, if you develop redness or drainage from your incision sites, or if you have questions. Please call your surgeon's office if you have any discharge or drainage from your chest incision. Your surgeon, Dr. Yuan Webber and/or the Cardiac Surgery Physician Asset Protection Specialist Team may be reached at . [...] Dr. Yuan Webber. You may use a [place] Track or treadmill but avoid any pulling [...] friends, go to a movie, go to bahai, etc. ?? Heavy activities: No hunting, skiing, jogging, snow shoveling, snowmobiling, lawn mowing, swimming, golf or tennis until after your return appointment with the surgeon. Do not ride motorcycles, [employer]'s tractors or horses. Avoid the use of [...] should resume a low fat, low cholesterol, Danish Heart Association Diet/Diabetic diet. ?? Driving: No [...] If there is a lot of swelling,apply higiino wraps during the day and remove at bedtime. Elevate your legs when you are sitting. ?? REMOVE CHEST TUBE SUTURES ON OR AFTER 07/17/2017 ?? Home oxygen therapy: N/A ?? Follow up appointments: ? Patient to follow-up with PCP, Lovely Vicente MD, in 1-2 weeks. An appointment has been made for you on 07/22/2017, , @ 1:20p ?? Patient to follow-up with Tattoo And Body Artist/heart failure team in one week. An appointment has been made for you, you can call [phone] ?? Patient to follow-up with Cardiac Surgery, Dr. Yuan Webber, in ~ 4 weeks with CXR, EKG. ? Cardiac Rehabilitation: Gregory Hoang??was seen today regarding participation in the outpatient Phase 2 Cardiac Rehabilitation at [facility]. ?? The patient agrees to a referral to this program.? The referral will be sent at discharge and the patient should be contacted by the Program within 1- 2 weeks from discharge. ? Future Appointments and Orders Future Appointments Provider Department Dept Phone ?? 09/07/2017 3:00 PM LAB, THREE L Lab 3L [facility] [phone] ?? 09/07/2017 4:00 PM Luz Prescott MD Endocrinology at [place] [phone] Future Orders Complete By Expires ?? EKG 12 Lead [EKG1 Custom] 08/14/2017 02/13/2018 ?? Process Instructions: ? Scheduling Instructions: ? Questions: ? Which location will this be performed?: [place] ?? Is a rhythm strip needed?: No ?? If EKG Reason is Pre-op Evaluation, indicate diagnosis for surgery.: ?? XR Chest PA & Lateral (Generic) [[id number] Custom] 08/14/2017 02/13/2018 ?? Process Instructions: ? Scheduling Instructions: ? Questions: ? Where will study be performed?: [facility] ?? Portable exam?: ?? Reason for exam and clinical history: CABG x 3 ?? Other pertinent information: ?? Stat read required?: ?? Date of injury if applicable: ?? Requested Time: ?? Referral to Cardiac Rehab [TLU124 Custom] As directed ? Process Instructions: ?? If no progress note charted, please enter Clinical details in comments. ?? Scheduling Instructions: ? Questions: ? My question or request is: s/p CABG. Cardiac rehab at [facility] ? Arrangements for VNA/home care: [...] RN - 07/14/2017 2:34 PM EST The patient/union contract representative has been provided a list of Home Health Agencies/DME vendors which serve their preferred geographic area. A letter describing our affiliations was reviewed with them and theywere educated about their right to choose where referrals are placed. Patient requests referral to [facility] Sponsorship. PHONE: [phone] FAX: [phone] Expected date of discharge: 07/14 Referral routed to the Director Stars for matching with agency/vendor and to provide [...] day to have your insulin doses adjusted. [facility] Endocrine clinic office Kathie Carrera APRN [facility] Endocrinology Diabetes Management Pager [phone] minutes of this 35 minute visit was spent with the patient in counseling on diabetes and treatment plan, reviewing all glucose and insulin data as well as relevant laboratory results with the patient, and coordination of care on the inpatient unit including nursing and primary team. Zulma Power RN - 07/14/2017 10:30 AM EST The patient/union contract representative has been provided a list of Home Health Agencies/DME vendors which serve their preferred geographic area. A letter describing our affiliations was reviewed with them and theywere educated about their right to choose where referrals are placed. Patient requests referral to : [facility] ([facility] [place] [facility]-is in [place]) PHONE: [phone] FAX: [phone]. Expected date of discharge: 07/14/17 Referral routed to the Director Stars for matching with agency/vendor and to provide [...] hours. If BG remains greater than 240, eubozl84 units (no more than three times) &??call [...] #6 s/p CABG X3. FSBG 80 at [place], reports no symptoms but did drink some [...] Will continue to follow Katerin Azul APRN [facility] Endocrinology Diabetes Management Pager [phone] minutes of this 25 minute visit [...] of infiltration/extravasation Discussed plan of care with MENTAL HEALTH SOCIAL WORKER and RN. Elevate exrtemity and apply intermittent Warm compresses. Name of MD contacted Dr. Shaw Brown 07/13/2017 @ 0654 Name of RN contacted Ale Rangel RN Name of Pharmacist if consulted NA Name of Plastics MD ( if consulted) NA (Mandatory photo for infiltrations/ extravasations scoring a stage 2 or greater, but recommended forstage 1)( include measuring tape and identifier in the photo) SPOOL SALVAGER CARING FOR THIS PATIENT WILL CONTINUE TO [...] measuring tape and identifier in the photo) SPOOL SALVAGER CARING FOR THIS PATIENT WILL CONTINUE TO [...] regard to both infiltrates addressed by this publications writer.All of MrMadiha Hoang's responses were entirely appropriate. Images of infiltrates attached here. L Martha Teague, PRESS FEEDER BROOMCORN - 07/13/2017 8:01 AM EST Cardiac Surgery Progress Note: ID: [id number] 72 year old male POD#6 s/p CABGx3 [...] discharge. ?? I have met with the patient/union contract representative to discuss discharge planning needs. I have provided the [facility], Office of Care Management letter from the Printing Machine Operator Tape Rules pertaining to rehab referrals. I have also provided a letter describing our affiliations within the [facility] and educated them about their right to choose where referrals are placed. ?? I reviewed the different levels of rehab including SNF, swing, acute and LTAC with the patient/union contract representative. ?? The patient/union contract representative has been provided a list of facilities within their preferred geographic area. ?? I have requested that the patient/union contract representative provide at least three choices for referral. ?? The patient/union contract representative have requested referrals to: ?? [facility]. [facility] ?? 2. [facility] ?? 3. More to be entered ?? Expected date of discharge: 07/14 Note routed to Director Stars who will communicate referrals to facilities and [...] hours. If BG remains greater than 240, tuveii09 units (no more than three times) & [...] hours. If BG remains greater than 240, xexkyg49 units (no more than three times) & call for new basal insulin orders. ??If less than 240 after two hours, give no insulin and resume prior schedule. Will continue to follow Katerin Azul APRN [facility] Endocrinology Diabetes Management Pager [phone] minutes of this 35 minute visit was spent with the patient in counseling on diabetes and treatment plan, reviewing all glucose and insulin data as well as relevant laboratory results with the patient, and coordination of care on the inpatient unit including nursing and primary team. Makayla Stevenson APRN - 07/12/2017 9:52 AM EST Cardiac Surgery Progress Note: ID: [id number] 72 year old male POD#5 s/p CABGx3 [...] 07/11/2017 7:18 PM EST Patient arrived from [facility]. VSS. MSI dressing pulled off with [...] hours. If BG remains greater than 240, ojvzuu74 units (no more than three times) & [...] AM EST Cardiac Surgery Progress Note: ID: [id number] 72 year old male POD#4 s/p CABGx3 [...] hours. If BG remains greater than 240, lwwuzg26 units (no more than three times) & [...] AM EST Cardiac Surgery Progress Note: ID: [id number] 72 year old male POD#3 s/p CABGx3 [...] Gas) No results found for: PHART, PO2ART, DZX6EFG Assessment/Plan: 72 year old male POD#3 s/p [...] Mami Thao - 07/09/2017 6:29 PM EST Organizational Research Consultant Encounter Note Patient Name: Gregory Hoang : [id number] MR#: [id number] Admit Date: 07/05/2017 4:20 PM Hospital Day 4 days Narrative: Patient was sitting in chair, hugging heart pillow, opened his eyes, nodding to come into room Assessment: Patient was sleepy. Intervention and Outcome: Introduced efficiency miner blasting services and patient reached his hand out in appreciation. Follow-up: Organizational Research Consultant remains available for support. Time in Direct [...] 10:45 AM EST Report given to staff physical therapy assistant to cover care Maddison Cee PA - 07/09/2017 9:00 AM EST Cardiac Surgery Progress Note: ID: [id number] 72 year old male POD#2 s/p CABGx3 [...] completed shifts: In: 7977.4 [I.V.:7477.4; Other:500] Out: 8775 [Urine:3000; Other:615] I- 4 L O- 2.7 [...] on rounds. Signed: STEPHANIE Iqbal [facility] Section of Cardiac Surgery Date: [...] when IABP d/c'ed. Gretchen Carolina, PT Pager [phone] Maddison Cee PA - 07/08/2017 11:27 AM EST Cardiac Surgery Progress Note: ID: [id number] 72 year old male POD#1 s/p CABGx3 [...] on rounds. Signed: STEPHANIE Iqbal [facility] Section of Cardiac Surgery Date: 07/08/2017 Philipp, [...] in place in R femoral. No hematoma. PERSONAL CONSULTANT- Intact Psych- Anxious Skin- Dry, no [...] intact. IABP in place in R femoral. PERSONAL CONSULTANT- Intact Psych- Anxious Skin- Dry, no [...] BP and blood sugars orders written. Daphne Sahhid MD - 07/06/2017 5:17 AM EST Inpatient [...] pending CABG - hold metformin - f/u [facility] ?? #Home Meds - continue levothyroxine [...] note for details. DAPHNE SHAHID MD Pager [phone] Jet Mckenna MD - 07/05/2017 6:48 PM EST Preliminary Cardiac Catheterization Procedure Note: Procedure(s) performed: Left heart cath, IABP insertion Access: Right TOP AND TRIM WORKER-->8fr IABP A time-out was conducted prior to [...] effect. Heparin gtt maintained. Pt transferred to animal laboratory helper. documented in this encounter H&P Notes Daphne Shahid MD - 07/05/2017 6:08 PM EST CARDIOLOGY HISTORY & PHYSICAL EXAM Date of Admission: 07/05/2017 ( Hospital Day 0 days ) Responsible Attending: Daphne Shahid MD PCP: Lovely Vicente MD PCP#: [phone] Patient Active Problem List Diagnosis Code ??? [...] load with heparin drip and transferred to [facility]. While there, continued sob, question of chest pain. Stat TTE showing WMA diffusely and EF around 20%. No significant valvular disease. Taken to the animal laboratory helper urgently for ongoing STEMI. [facility] Labs: INR 1.0 WBC 5.88 [...] monitor I/O - s/p lasix in the animal laboratory helper, redose to aim net neg 1L by [...] Medicine, PGY-2 Cardiology S1, Team Pager # [phone] CARDIOLOGY ATTENDING NOTE Patient: Gregory Hoang Date [...] amenable for PCI. DAPHNE SHAHID MD Pager [phone] documented in this encounter Miscellaneous Notes Consult Note - Daphne Shahid MD - 07/14/2017 11:46 AM EST Heart Failure Service Inpatient Consult Note Gregory Hoang Date of : 1945 Age: 72 y.o. Today's date: 07/14/17 PCP: Lovely Vicente MD HOSPICE REGISTERED NURSE: None Place of Service: C451-A Reason for [...] SETUP performed by Manny Mcknight MD at [facility] OR ??? PRO CABG, ARTERIAL, SINGLE N/A 07/07/2017 @CABG, USING ARTERIAL GRAFT;SINGLE ARTERIAL GRAFT (WRVU 33.75) performed by Yuan Webber MD at [facility] OR ??? PRO CABG, ARTERY-VEIN, TWO N/A 07/07/2017 @CABG, TWO VENOUS GRAFTS & ARTERIAL GRAFT (WRVU 7.93) performed by Yuan Webber MD at [facility] OR ??? PRO COLONOSCOPY, REMV LESN, SNARE 01/16/2014 COLONOSCOPY, POLYPECTOMY, REMOVAL LESION BY SNARE performed by Nohemi Jaimes MD at [facility] ENDOSCOPY ??? PRO ENDOSCOPY W/VIDEO-ASST VEIN HARVEST, CABG Right 07/07/2017 ENDOSCOPIC HARVEST VEIN(S) FOR CABG (WRVU 0.31) performed by Yuan Webber MD at [facility] OR ??? PRO THYROIDECTOMY 03/28/2013 THYROIDECTOMY, TOTAL OR COMPLETE performed by Manny Mcknight MD at [facility] MAIN OR Outpt Meds: Current Outpatient [...] following studies: EKG 07/14/17: NSR 75 bpm, METHODS ANALYST DATA PROCESSING anterior infarct, LAD CXR 07/11/17: FINDINGS: Sternotomy wires. The patient has been extubated, left chest tube removed, and [place]-Suzi catheter removed since the 07/07/2017 study. Atelectasis [...] was discussed with Zehra. Jaden Kelley MD Space Officer Pager [phone] CARDIOLOGY ATTENDING NOTE Patient: Gregory Hoang Date [...] heart failure clinic. DAPHNE SHAHID MD Pager [phone] Plan of Care - Alden Chavarria, SEAMER OPERATOR - 07/14/2017 11:35 AM EST Problem: [...] Disposition: home with assist Alden Jorge Genikevin, SEAMER OPERATOR Pager: [phone] Inpatient Physical Therapy Problem: Acute Rehab Services [...] sit/sit to supine -- Bed Mobility Goal, [place] Level supervision required -- Bed Mobility Goal, [...] - 3 days -- Gait Training Goal, [place] Level supervision required -- Gait Training Goal, [...] days -- Transfer Training Goal, Activity Type bwy-bg-ujxwx/hbace-hl-zzd;kie-hn-vnfub/zanbc-ip-twc;toilet -- Transfer Train Goal, [place] Level supervision required -- Transfer Training Goal, [...] keeping present for 2 days per family. Electric Blasting Cap Assembler noted of frustrations, house keeping sent to room. Patient offered showered twice, refused. at bedside, frustrated that shower not complete, informed that patient had refused several times. requesting to see REHAB SPECIALIST, paged sent to Martha, will come to bedside (middle of consult). not willing to wait, Martha notified that family had gone home. Encouraged to come for morning rounds a t 8am. Diabetes team at bedside - insulin adjustments made. Call cabello in reach. Continue to monitor. PLAN MOVING FORWARD: Ambulate, dressing changes BID, Please change drsg at 4am per Martha REHAB SPECIALIST request. INDIVIDUALIZED FALL PREVENTION INTERVENTIONS: Patient-specific [...] levels on the lower side, 60ml of [place] juice given after a FS of 80. [...] Conf 07/13/17 0502 Interdisciplinary Rounds/Family Conf Participants top case assembler;dietitian/nutrition services;nursing;occupational therapy;patient;pharmacy;physical therapy;physician Plan of Care [...] Anticipated Discharge Disposition: home with assist Pager: [phone] CLARISSA SEGAL, PT 07/12/2017 Physical Therapy Rehabilitation [...] to sit/sit to supine Bed Mobility Goal, [place] Level supervision required Bed Mobility Goal, Additional Goal adheres to psternal precautions for transfer Goal: Gait Training Goal Stand Alone Therapy Goal Outcome: Ongoing (Interventions Implemented as Appropriate) 07/12/17 1225 Gait Training Goal Gait Training Goal, Date Established 07/12/17 Gait Training Goal, Time to Achieve 2 - 3 days Gait Training Goal, [place] Level supervision required Gait Training Goal, Assist [...] 3 days Transfer Training Goal, Activity Type rxt-ma-cgbhg/vgutv-fg-fej;bqo-vv-rajca/vglrf-bi-uxj;toilet Transfer Train Goal, [place] Level supervision required Transfer Training Goal, Additional Goal adheres to sternal precautions during transfer Consult Note - Octavia Vaughn RN - 07/12/2017 10:50 AM EST [facility] CARDIAC REHABILITATION Gregory Hoang was seen today regarding participation in the outpatient Phase 2 Cardiac Rehabilitation at [facility]. The patient agrees to a [...] site, amio to other piv and [employer] at bedside to help assess, IV removed. [...] staff, he stood and marched in place. Hall weak, wanting to sit back down. Remained [...] Health/Prescription Coverage: Primary Insurance: MEDICARE Secondary Insurance: [employer] [place] Prescription Coverage: yes Preferred Pharmacy: [facility] [address] [facility] Other: none Primary Care Provider: Lovely Vicente MD [phone] Patient/Caregiver Goals of Treatment:live and get my breath back Potential Needs for Transition of Care: Rehab/SNF: [facility] Home Health: NA DME: TBD Dialysis: na Community Resources: available Transportation: yes Other: none Anticipated Barriers to Discharge/Special Considerations: none Plan: Likely SNF Rehab before home A member of the Care Management team will continue to monitor progress, follow for continuity of care and assist with transition of care planning. ERLIN Weiss Pager: [phone] Consult Note - Katerin Azul RN - [...] management and to provide a review of intermodal customer service diabetes care. Diabetes History: Gregory Hoang has [...] patient W/E coverage, Dr. Jeane Tatum, pager [phone] Katerin Azul APRN Endocrinology Diabetes Management Pager [phone] Plan of Care - Walt Stephanie Wyatt [...] Webber MD - 07/07/2017 6:27 PM EST [facility] Operative Note Patient Name: Gregory Hoang : [id number] MR#: [id number] Case Date: 07/07/2017 Surgeon: Surgeon(s) and Role: * Yuan Webber MD - Primary * Michael Drake PA - Physician Asset Protection Specialist * Linda Flores PA - Physician Asset Protection Specialist Preoperative diagnosis: 3VD Postoperative diagnosis: CAD, [...] Operative Note Patient Name: Gregory Hoang : [id number] MR#: [id number] Case Date: 07/07/2017 Surgeon: Surgeon(s) and Role: * Yuan Webber MD - Primary * Michael Drake PA - Physician Asset Protection Specialist * Linda Flores PA - Physician Asset Protection Specialist Preoperative diagnosis: 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 In this [...] code status: Full Code Katty Hahn, MS3 [facility] Cardiology S1 (Pager [phone]) Plan of Care - Emelia Ibarra RN [...] and document Plan of Care - Emelia Ibarar RN - 07/06/2017 2:48 PM EST Problem: [...] hospital and ruled infor non-ST segment elevation MN. This almost certainly represents the residual of [...] SETUP performed by Manny Mcknight MD at [facility] MAIN OR ??? PRO COLONOSCOPY, REMV LESN, SNARE 01/16/2014 COLONOSCOPY, POLYPECTOMY, REMOVAL LESION BY SNARE performed by Nohemi Jaimes MD at [facility] ENDOSCOPY ??? PRO THYROIDECTOMY 03/28/2013 THYROIDECTOMY, TOTAL OR COMPLETE performed by Manny Mcknight MD at [facility] MAIN OR Social History: Social History [...] with other involved physicians Yuan Webber MD [phone] Med Student Progress Note - Katty Hahn [...] major CV events such as , stroke, [place], repeat revascularization compared to PCI). In this [...] or BiPAP - s/p lasix in the animal laboratory helper, was net -1.5L - s/p plavix load, [...] - Dispo: CVCC Katty Hahn, M3 [facility] Cardiology S1 (Pager [phone]) Plan of Care - Stephanie Godoy RN - 07/06/2017 5:00 AM EST Problem: Patient Care Overview Goal: Plan of Care Review 07/06/17 [id number] Coping/Psychosocial Plan Of Care Reviewed With patient;family [...] in urinal without difficulty. Lasix given in animal laboratory helper, 1.4 L out at this time. Pt [...] MD [facility] [address] [place], [place] [address] (Wo rk) 06/10/2022 Office Visit Dermatology Laura Scherer MD [facility] [address] [place], [place] [address] (Wo rk) Scheduled Orders Name [...] procedure are i n the results section. SENIOR QUALITY CONTROL INSPECTOR SCAN 07/15/2017 12:00 Res ults for this [...] Routine 07/08/2017 4:00 Results f or this ([facility]) AM EST procedure are i n the [...] Routine 07/07/2017 5:15 Results f or this ([facility]) AM EST procedure are i n the [...] Routine 07/06/2017 7:40 Results f or this ([facility]) PM EST procedure are i n the [...] Timed 07/06/2017 2:10 Results f or this ([facility]) PM EST procedure are i n the [...] section. TYPE AND SCREEN Routine 07/06/2017 12:00 ([facility]/SHANDA) PM EST APTT STAT 07/06/2017 11:24 Results [...] Routine 07/06/2017 8:10 Results f or this ([facility]) AM EST procedure are i n the [...] Routine 07/06/2017 2:20 Results f or this ([facility]) AM EST procedure are i n the [...] Routine 07/05/2017 8:20 Results f or this ([facility]) PM EST procedure are i n the [...] Timed 07/05/2017 4:55 Results f or this ([facility]) PM EST procedure are i n the [...] 2017 EXAMINATION: XR CHEST PA AND LATERAL (InstallMonetizerIC) CLINICAL HISTORY: CABG x 3 TECHNIQUE: PA [...] [place] at 08/19/2017 10:30 AM Martha Teague [employer] IMG DX ORDERABLES SCAN DOC: SENIOR QUALITY CONTROL INSPECTOR (07/15/2017 12:00 AM EST) Narrative 07/15/2017 12:00 [...] Glucose 186 65 - 199 [facility] mg/dL [facility] Comment: Supplemental ranges: <140 mg/dL before meals <180 mg/dL all other times of the day Specimen Anatomical Collection Method Collection Time Receive d Time (Source) Location / / Volume Laterality Blood specimen 07/14/2017 11:56 7 (specimen) AM EST 11:56 AM EST Yuan Webber MD POINT OF CARE TEST ORDERABLE S Performing Organization Address City/State/[place] [address] POCT Glucose (07/14/2017 7:52 AM EST) athologist Signature POC Glucose 126 65 - 199 [facility] mg/dL [facility] Comment: Supplemental ranges: <140 mg/dL [...] [facility]/[place] [address] (ABNORMAL) Prothrombin Time (07/14/2017 4:46 AM EST) athologist Signature PT 26.4 (H) 11.8 - 14.0 [facility] LABORATORY INR 2.4 (H) 0.9 - [...] APRN HEMATOLOGY ORDERABLES Performing Organization Address City/[facility]/[place] [address] Potassium (07/14/2017 4:46 AM EST) athologist Signature Potassium 4.3 3.5 - 5.0 [facility] mmol/L [facility] Comment: Please note: ??Patients with [...] Address City/State/ZIP Code Phon e Number [address] POCT Glucose (07/14/2017 4:34 AM EST) athologist Signature POC Glucose 115 65 - 199 [place] mg/dL [facility] Comment: Supplemental ranges: <140 mg/dL [...] [facility]/ZIP Code Phon e Number [address] POCT Glucose (07/13/2017 11:33 PM EST) athologist Signature POC Glucose 132 65 - 199 [place] mg/dL [facility] Comment: Supplemental ranges: <140 mg/dL [...] Hospital/ZIP Code Ph[place] [address] POCT Glucose (07/13/2017 9:25 PM EST) athologist Signature POC Glucose 121 65 - 199 [place] mg/dL [facility] Comment: Supplemental ranges: <140 mg/dL before meals <180 mg/dL all other times of the day Specimen Anatomical Collection Method Collection Time Receive d Time (Source) Location / / Volume Laterality Blood specimen 07/13/2017 9:25 PM 017 9:25 (specimen) EST PM EST Yuan Webber MD POINT OF CARE TEST ORDERABLE S Performing Organization Address City/State/[place] [address] POCT Glucose (07/13/2017 4:55 PM EST) athologist Signature POC Glucose 79 65 - 199 [place] mg/dL [facility] Comment: Supplemental ranges: <140 mg/dL before meals <180 mg/dL all other times of the day Specimen Anatomical Collection Method Collection Time Receive d Time (Source) Location / / Volume Laterality Blood specimen 07/13/2017 4:55 PM 017 4:55 (specimen) EST PM EST Yuan Webber MD POINT OF CARE TEST ORDERABLE S Performing Organization Address City/State/ZIP Code Phon e Number [address] POCT Glucose (07/13/2017 11:16 AM EST) athologist Signature POC Glucose 163 65 - 199 [facility] mg/dL [facility] Comment: Supplemental ranges: <140 mg/dL before meals <180 mg/dL all other times of the day Specimen Anatomical Collection Method Collection Time Receive d Time (Source) Location / / Volume Laterality Blood specimen 07/13/2017 11:16 7 (specimen) AM EST 11:16 AM EST Yuan Webber MD POINT OF CARE TEST ORDERABLE S Performing Organization Address City/State/ZIP Code Phon e Number [address] POCT Glucose (07/13/2017 8:07 AM EST) athologist Signature POC Glucose 96 65 - 199 [place] mg/dL [facility] Comment: Supplemental ranges: <140 mg/dL before meals <180 mg/dL all other times of the day Specimen Anatomical Collection Method Collection Time Receive d Time (Source) Location / / Volume Laterality Blood specimen 07/13/2017 8:07 AM 017 8:07 (specimen) EST AM EST Yuan Webber MD POINT OF CARE TEST ORDERABLE S Performing Organization Address City/State/[place] [address] (ABNORMAL) Prothrombin Time (07/13/2017 4:26 AM EST) P athologist Signature PT 20.8 (H) 11.8 - 14.0 [facility] LABORATORY INR 1.8 (H) 0.9 - [...] Agency Comment Spec In Lab Makayla Dejesusfield QUINONES HEMATOLOGY ORDERABLES Performing Organization Address City/State/[place] [address] (ABNORMAL) Basic Metabolic Panel (non-fasting) (07/13/2017 4:26 AM EST) athologist Signature Glucose Lvl 95 65 - 199 [facility] mg/dL [facility] Comment: Diabetes: >=200 mg/dL plus symp toms BUN 25 (H) 10 - 20 mg/dL [facility] Creatinine 1.19 0.80 - 1.50 mg/dL [facility] Sodium 143 135 - 145 [...] 15 mmol/L [facility] Calcium 7.7 (L) 8.5 - 10.5 mg/dL [facility] Estimated GFR 60 >=60 [facility] Comment: The reported eGFR should be multiplied b y 1.2 for patients. The MDRD is not an appropriate measure o f renal function for patients with body mass extremes or in patients with acute kidney failure. http://BackupAgent/DHnkdep http://BackupAgent/DHMCnkf Specimen Anatomical Collection Method Collection Time Receive d Time (Source) Location / / Volume Laterality Blood specimen 07/13/2017 4:26 AM 017 4:46 (specimen) EST AM EST Resulting Agency Comment Spec In Lab Makayla Wilson APRN CHEMISTRY ORDERABLES Performing Organization Address City/[facility]/ZIP Code Phon e Number [address] POCT Glucose (07/13/2017 3:52 AM EST) athologist Signature POC Glucose 93 65 - 199 [facility] mg[facility]dL [facility] Comment: Supplemental ranges: <140 mg/dL before meals <180 mg/dL all other times of the day Specimen Anatomical Collection Method Collection Time Receive d Time (Source) Location / / Volume Laterality Blood specimen 07/13/2017 3:52 AM 017 3:52 (specimen) EST AM EST Yuan Webber MD POINT OF CARE TEST ORDERABLE S Performing Organization Address City/State/ZIP Code Phon e Number [address] POCT Glucose (07/13/2017 12:21 AM EST) athologist Signature POC Glucose 80 65 - 199 [facility] mg/dL [facility] Comment: Supplemental ranges: <140 mg/dL before meals <180 mg/dL all other times of the day Specimen Anatomical Collection Method Collection Time Receive d Time (Source) Location / / Volume Laterality Blood specimen 07/13/2017 12:21 7 (specimen) AM EST 12:21 AM EST Yuan Webber MD POINT OF CARE TEST ORDERABLE S Performing Organization Address City/State/ZIP Code Phon e Number [address] POCT Glucose (07/12/2017 8:22 PM EST) athologist Signature POC Glucose 119 65 - 199 [place] mg/dL [facility] Comment: Supplemental ranges: <140 mg/dL [...] [facility]/ZIP Code Phon e Number [address] POCT Glucose (07/12/2017 4:02 PM EST) athologist Signature POC Glucose 114 65 - 199 [place] mg/dL [facility] Comment: Supplemental ranges: <140 mg/dL [...] [facility]/[place] [address] POCT Glucose (07/12/2017 11:28 AM EST) athologist Signature POC Glucose 164 65 - 199 [place] mg/dL [facility] Comment: Supplemental ranges: <140 mg/dL before meals <180 mg/dL all other times of the day Specimen Anatomical Collection Method Collection Time Receive d Time (Source) Location / / Volume Laterality Blood specimen 07/12/2017 11:28 7 (specimen) AM EST 11:28 AM EST Yuan Webber MD POINT OF CARE TEST ORDERABLE S Performing Organization Address City/State/ZIP Code Phon e Number [address] POCT Glucose (07/12/2017 7:34 AM EST) athologist Signature POC Glucose 109 65 - 199 [facility] mg/dL [facility] Comment: Supplemental ranges: <140 mg/dL before meals <180 mg/dL all other times of the day Specimen Anatomical Collection Method Collection Time Receive d Time (Source) Location / / Volume Laterality Blood specimen 07/12/2017 7:34 AM 017 7:34 (specimen) EST AM EST Yuan Webber MD POINT OF CARE TEST ORDERABLE S Performing Organization Address City/State/[place] [address] (ABNORMAL) Basic Metabolic Panel (non-fasting) (07/12/2017 4:11 AM EST) athologist Signature Glucose Lvl 92 65 - 199 [facility] mg[facility]dL [facility] Comment: Diabetes: >=200 mg/dL plus symp toms BUN 31 (H) 10 - 20 mg/dL [facility] Creatinine 1.23 0.80 - 1.50 mg/dL [facility] Sodium 145 135 - 145 [...] Gap Not Calculated 5 - 15 mmol/L [facility] Calcium 8.1 (L) 8.5 - 10.5 mg/dL [facility] Estimated GFR 58 (L) >=60 [facility] Comment: The reported eGFR should be multiplied b y 1.2 for patients. The MDRD is not an appropriate measure o f renal function for patients with body mass extremes or in patients with acute kidney failure. http://BackupAgent/DHnkdep http://BackupAgent/DHMCnkf Specimen Anatomical Collection Method Collection Time Receive d Time (Source) Location / / Volume Laterality Blood specimen 07/12/2017 4:11 AM 017 8:57 (specimen) EST AM EST Resulting Agency Comment Spec [facility] CHEMISTRY ORDERABLES Performing Organization Address [facility] Phon e Number [address] (ABNORMAL) Prothrombin Time (07/12/2017 4:11 AM EST) P athologist Signature PT 15.4 (H) 11.8 - 14.0 [facility] LABORATORY INR 1.2 (H) 0.9 - [...] Dejesusfield STACIE HEMATOLOGY ORDERABLES Performing Organization Address [facility] Phon e Number [address] Potassium (07/12/2017 4:11 AM EST) P athologist Signature Potassium 3.8 3.5 - 5.0 [facility] mmol/L [facility] Comment: Please note: ??Patients with [...] Organization Address City/[facility]/ZIP [facility] Phon e Number [address] POCT Glucose (07/12/2017 4:10 AM EST) athologist Signature POC Glucose 90 65 - 199 [facility] Comment: Supplemental ranges: <140 mg/dL before meals <180 mg/dL all other times of the day Specimen Anatomical Collection Method Collection Time Receive d Time (Source) Location / / Volume Laterality Blood specimen 07/12/2017 4:10 AM 017 4:10 (specimen) EST AM EST Yuan Webber MD POINT OF CARE TEST ORDERABLE S Performing Organization Address City/[facility] Code Phon e Number [address] POCT Glucose (07/11/2017 11:57 PM EST) athologist Signature POC Glucose 98 65 - 199 [facility] mg/dL [facility] Comment: Supplemental ranges: <140 mg/dL [...] [facility]/ZIP Code Phon e Number [address] POCT Glucose (07/11/2017 8:32 PM EST) P athologist Signature POC Glucose 146 65 - 199 [place] mg/dL [facility] Comment: Supplemental ranges: <140 mg/dL before meals <180 mg/dL all other times of the day Specimen Anatomical Collection Method Collection Time Receive d Time (Source) Location / / Volume Laterality Blood specimen 07/11/2017 8:32 PM 017 8:32 (specimen) EST PM EST Yuan Webber MD POINT OF CARE TEST ORDERABLE S Performing Organization Address City/State/[place] [address] XR Chest PA & [...] e xtubated, left chest tube removed, and [place]-Suzi catheter removed since the study. Atelectasis at [...] e xtubated, left chest tube removed, and [place]-Suzi catheter removed since the study. Atelectasis at [...] (H) 65 - 199 [place] mg/dL [facility] Comment: Supplemental ranges: <140 mg/dL [...] [facility]/ZIP Code Phon e Number [address] POCT Glucose (07/11/2017 11:55 AM EST) athologist Signature POC Glucose 176 65 - 199 [place] mg/dL [facility] Comment: Supplemental ranges: <140 mg/dL before meals <180 mg/dL all other times of the day Specimen Anatomical Collection Method Collection Time Receive d Time (Source) Location / / Volume Laterality Blood specimen 07/11/2017 11:55 7 (specimen) AM EST 11:55 AM EST Yuan Webber MD POINT OF CARE TEST ORDERABLE S Performing Organization Address City/State/[place] [address] POCT Glucose (07/11/2017 7:53 AM EST) athologist Signature POC Glucose 189 65 - 199 [place] mg/dL [facility] Comment: Supplemental ranges: <140 mg/dL before meals <180 mg/dL all other times of the day Specimen Anatomical Collection Method Collection Time Receive d Time (Source) Location / / Volume Laterality Blood specimen 07/11/2017 7:53 AM 017 7:53 (specimen) EST AM EST Yuan Webber MD POINT OF CARE TEST ORDERABLE S Performing Organization Address City/State/[place] [address] POCT Glucose (07/11/2017 4:22 AM EST) athologist Signature POC Glucose 151 65 - 199 [place] mg/dL [facility] Comment: Supplemental ranges: <140 mg/dL [...] [facility]/[place] [address] Potassium (07/11/2017 2:20 AM EST) athologist Signature Potassium 4.5 3.5 - 5.0 [facility] mmol/L [facility] Comment: Please note: ??Patients with [...] [facility]/ZIP Code Phon e Number [address] POCT Glucose (07/11/2017 12:17 AM EST) athologist Signature POC Glucose 162 65 - 199 [place] mg/dL [facility] Comment: Supplemental ranges: <140 mg/dL before meals <180 mg/dL all other times of the day Specimen Anatomical Collection Method Collection Time Receive d Time (Source) Location / / Volume Laterality Blood specimen 07/11/2017 12:17 7 (specimen) AM EST 12:17 AM EST Yuan Webber MD POINT OF CARE TEST ORDERABLE S Performing Organization Address City/State/[place] [address] POCT Glucose (07/10/2017 8:47 PM EST) athologist Signature POC Glucose 191 65 - 199 [place] mg/dL [facility] Comment: Supplemental ranges: <140 mg/dL before meals <180 mg/dL all other times of the day Specimen Anatomical Collection Method Collection Time Receive d Time (Source) Location / / Volume Laterality Blood specimen 07/10/2017 8:47 PM 017 8:47 (specimen) EST PM EST Yuan Webber MD POINT OF CARE TEST ORDERABLE S Performing Organization Address City/State/[place] [address] POCT Glucose (07/10/2017 4:06 PM EST) athologist Signature POC Glucose 131 65 - 199 [place] mg/dL [facility] Comment: Supplemental ranges: <140 mg/dL before meals <180 mg/dL all other times of the day Specimen Anatomical Collection Method Collection Time Receive d Time (Source) Location / / Volume Laterality Blood specimen 07/10/2017 4:06 PM 017 4:06 (specimen) EST PM EST Yuan Webber MD POINT OF CARE TEST ORDERABLE S Performing Organization Address City/State/ZIP Code Phon e Number [address] POCT Glucose (07/10/2017 3:08 PM EST) athologist Signature POC Glucose 151 65 - 199 [facility] mg/dL [facility] Comment: Supplemental ranges: <140 mg/dL before meals <180 mg/dL all other times of the day Specimen Anatomical Collection Method Collection Time Receive d Time (Source) Location / / Volume Laterality Blood specimen 07/10/2017 3:08 PM 017 3:08 (specimen) EST PM EST Yuan Webber MD POINT OF CARE TEST ORDERABLE S Performing Organization Address City/State/ZIP Code Phon e Number [address] POCT Glucose (07/10/2017 2:25 PM EST) athologist Signature POC Glucose 146 65 - 199 [place] mg/dL [facility] Comment: Supplemental ranges: <140 mg/dL before meals <180 mg/dL all other times of the day Specimen Anatomical Collection Method Collection Time Receive d Time (Source) Location / / Volume Laterality Blood specimen 07/10/2017 2:25 PM 017 2:25 (specimen) EST PM EST Yuan Webber MD POINT OF CARE TEST ORDERABLE S Performing Organization Address City/State/[place] [address] POCT Glucose (07/10/2017 1:23 PM EST) athologist Signature POC Glucose 166 65 - 199 [place] mg/dL [facility] Comment: Supplemental ranges: <140 mg/dL before meals <180 mg/dL all other times of the day Specimen Anatomical Collection Method Collection Time Receive d Time (Source) Location / / Volume Laterality Blood specimen 07/10/2017 1:23 PM 017 1:23 (specimen) EST PM EST Yuan Webber MD POINT OF CARE TEST ORDERABLE S Performing Organization Address City/State/[place] [address] POCT Glucose (07/10/2017 11:52 AM EST) athologist Signature POC Glucose 157 65 - 199 [place] mg/dL [facility] Comment: Supplemental ranges: <140 mg/dL before meals <180 mg/dL all other times of the day Specimen Anatomical Collection Method Collection Time Receive d Time (Source) Location / / Volume Laterality Blood specimen 07/10/2017 11:52 7 (specimen) AM EST 11:52 AM EST Yuan Webber MD POINT OF CARE TEST ORDERABLE S Performing Organization Address City/State/ZIP Code Phon e Number [address] POCT Glucose (07/10/2017 11:01 AM EST) P athologist Signature POC Glucose 158 65 - 199 [place] mg/dL [facility] LABOR[facility]ORY Comment: Supplemental ranges: <140 mg/dL [...] [facility]/ZIP Code Phon e Number [address] POCT Glucose (07/10/2017 9:54 AM EST) P athologist Signature POC Glucose 160 65 - 199 [place] mg/dL [facility] Comment: Supplemental ranges: <140 mg/dL before meals <180 mg/dL all other times of the day Specimen Anatomical Collection Method Collection Time Receive d Time (Source) Location / / Volume Laterality Blood specimen 07/10/2017 9:54 AM 017 9:54 (specimen) EST AM EST Yuan Webber MD POINT OF CARE TEST ORDERABLE S Performing Organization Address City/State/ZIP Code Phon e Number [address] POCT Glucose (07/10/2017 8:58 AM EST) P athologist Signature POC Glucose 183 65 - 199 [place] mg/dL [facility] Comment: Supplemental ranges: <140 mg/dL before meals <180 mg/dL all other times of the day Specimen Anatomical Collection Method Collection Time Receive d Time (Source) Location / / Volume Laterality Blood specimen 07/10/2017 8:58 AM 017 8:58 (specimen) EST AM EST Yuan Webber MD POINT OF CARE TEST ORDERABLE S Performing Organization Address City/State/ZIP Code Phon e Number [address] POCT Glucose (07/10/2017 8:01 AM EST) athologist Signature POC Glucose 173 65 - 199 [place] mg/dL [facility] Comment: Supplemental ranges: <140 mg/dL before meals <180 mg/dL all other times of the day Specimen Anatomical Collection Method Collection Time Receive d Time (Source) Location / / Volume Laterality Blood specimen 07/10/2017 8:01 AM 017 8:01 (specimen) EST AM EST Yuan Webber MD POINT OF CARE TEST ORDERABLE S Performing Organization Address City/State/ZIP Code Phon e Number [address] POCT Glucose (07/10/2017 7:05 AM EST) athologist Signature POC Glucose 166 65 - 199 [place] mg/dL [facility] Comment: Supplemental ranges: <140 mg/dL before meals <180 mg/dL all other times of the day Specimen Anatomical Collection Method Collection Time Receive d Time (Source) Location / / Volume Laterality Blood specimen 07/10/2017 7:05 AM 017 7:05 (specimen) EST AM EST Yuan Webber MD POINT OF CARE TEST ORDERABLE S Performing Organization Address City/State/ZIP Code Phon e Number [address] POCT Glucose (07/10/2017 6:00 AM EST) athologist Signature POC Glucose 162 65 - 199 [facility] RYAN mg/dL [facility] Comment: Supplemental ranges: <140 mg/dL before meals <180 mg/dL all other times of the day Specimen Anatomical Collection Method Collection Time Receive d Time (Source) Location / / Volume Laterality Blood specimen 07/10/2017 6:00 AM 017 6:00 (specimen) EST AM EST Yuan Webber MD POINT OF CARE TEST ORDERABLE S Performing Organization Address City/State/ZIP Code Phon e Number [place] [id number] [facility] LABORATORY Drive (ABNORMAL) Differential, Automated (07/10/2017 4:28 AM EST) [facility] Method Time Signature Neutrophils % 87.9 % [facility] LABORATORY Neutr Abs (ANC) 10.70 (H) 1.70 - [facility] 6.10 [facility] x10(3)/[facility] L LABORATORY Lymphocytes % 3.9 % [facility] LABORATORY Lymphocytes Abs 0.5 (L) 0.9 - 3.2 [facility] x10(3)/[facility] LABORATORY Monocytes % 7.0 % [facility] LABORATORY Monocyte Abs 0.8 0.3 - 0.9 [facility] x10(3)/[facility] LABORATORY Eosinophils % 0.3 % [facility] LABORATORY Eosinophils Abs 0.0 0.0 - 0.4 [facility] x10(3)/[facility] LABORATORY Basophils % 0.2 % [facility] LABORATORY Basophils Abs 0.0 0.0 - 0.1 [facility] x10(3)/[facility] LABORATORY Immature Gran % 0.70 % [...] Gran Abs 0.08 (H) 0.00 - 0.04 x10(3)/[facility] LABORATORY Specimen Anatomical Collection Method Collection Time Receive d Time (Source) Location / / Volume Laterality Blood specimen 07/10/2017 4:28 AM 017 4:36 (specimen) EST AM EST Resulting Agency Comment Spec In Lab Yuan Webber MD HEMATOLOGY ORDERABLES Performing Organization Address City/[facility]/ZIP Code Phon e Number [place] [id number] [facility]ORY [address] (ABNORMAL) Hemogram (07/10/2017 4:28 AM EST) Analysis Performed At Patho logist Time Signature WBC 12.2 (H) 4.0 - 9.5 [facility] x10(3)/[facility] LABORATORY RBC 3.31 (L) 4.58 - [place] 5.54 [facility] x10(6)/[facility] LABORATORY Hemoglobin 9.8 (L) 13.7 - [facility] 16.5 gm/dL [facility] Hematocrit 30.0 (L) 40.5 - [facility] 48.5 % [facility]ORY MCV 90.6 82.9 - [facility] 93.1 [facility] LABORATORY MCH 29.6 27.5 - [facility] 32.[address] [facility] LABORATORY MCHC 32.7 32.0 - [facility] 35.7 gm/dL [facility]ORY Platelets 135 (L) 145 - 357 [facility] x10(3)/[facility] LABORATORY RDWSD 50.8 (H) 36.0 - [facility] 45.0 [facility] LABORATORY RDWCV 15.4 (H) 11.4 - [facility] 13.8 % [facility] LABORATORY MPV 10.0 7.6 - 12.9 [facility] LABORATORY nRBC % Auto 0.0 % [facility] LABORATORY nRBC Abs Auto 0.000 0.000 - [facility] 0.000 [facility] x10(3)/[facility] LABORATORY Specimen Anatomical Collection Method Collection Time Receive d Time (Source) Location / / Volume Laterality Blood specimen 07/10/2017 4:28 AM 017 4:36 (specimen) EST AM EST Resulting Agency Comment Spec In Lab Yuan Webber MD HEMATOLOGY ORDERABLES Performing Organization Address City/State/[place] [address] (ABNORMAL) Basic Metabolic Panel (non-fasting) (07/10/2017 4:28 AM EST) P athologist Signature Glucose Lvl 178 65 - 199 [facility] mg/dL [facility] Comment: Diabetes: >=200 mg/dL plus symp toms BUN 20 10 - 20 mg/dL [facility] LABORATORY Creatinine 1.19 0.80 - 1.50 mg/dL [facility] LABORATORY Sodium 143 135 - 145 [...] 15 mmol/L [facility] LABORATORY Calcium 7.4 (L) 8.5 - 10.5 mg/dL [facility] LABORATORY Estimated GFR 60 >=60 [facility]OR[facility]ORY Comment: The reported eGFR should be multiplied b y 1.2 for patients. The MDRD is not an appropriate measure o f renal function for patients with body mass extremes or in patients with acute kidney failure. [email or web address].Ubidyne/DHnkdep [email or web address]/DHMCnkf Specimen Anatomical Collection Method Collection Time Receive d Time (Source) Location / / Volume Laterality Blood specimen 07/10/2017 4:28 AM 017 4:36 (specimen) EST AM EST Resulting Agency Comment Spec In Lab Yuan Webber MD CHEMISTRY ORDERABLES Performing Organization Address City/State/[place] [address] POCT Glucose (07/10/2017 4:26 AM EST) P athologist Signature POC Glucose 176 65 - 199 [facility] mg/dL [facility] Comment: Supplemental ranges: <140 mg/dL before meals <180 mg/dL all other times of the day Specimen Anatomical Collection Method Collection Time Receive d Time (Source) Location / / Volume Laterality Blood specimen 07/10/2017 4:26 AM 017 4:26 (specimen) EST AM EST Yuan Webber MD POINT OF CARE TEST ORDERABLE S Performing Organization Address City/State/ZIP Code Phon e Number [address] (ABNORMAL) POCT Glucose (07/10/2017 3:06 AM EST) P athologist Signature POC Glucose 204 (H) 65 - 199 [place] mg/dL [facility] Comment: Supplemental ranges: <140 mg/dL [...] [facility]/[place] [address] (ABNORMAL) POCT Glucose (07/10/2017 2:10 AM EST) P athologist Signature POC Glucose 203 (H) 65 - 199 [place] mg/dL [facility] Comment: Supplemental ranges: <140 mg/dL before meals <180 mg/dL all other times of the day Specimen Anatomical Collection Method Collection Time Receive d Time (Source) Location / / Volume Laterality Blood specimen 07/10/2017 2:10 AM 017 2:10 (specimen) EST AM EST Yuan Webber MD POINT OF CARE TEST ORDERABLE S Performing Organization Address City/State/ZIP Code Phon e Number [address] POCT Glucose (07/10/2017 1:09 AM EST) P athologist Signature POC Glucose 196 65 - 199 [facility] RYAN mg/dL [facility] Comment: Supplemental ranges: <140 mg/dL before meals <180 mg/dL all other times of the day Specimen Anatomical Collection Method Collection Time Receive d Time (Source) Location / / Volume Laterality Blood specimen 07/10/2017 1:09 AM 017 1:09 (specimen) EST AM EST Yuan Webber MD POINT OF CARE TEST ORDERABLE S Performing Organization Address City/State/[place] [address] POCT Glucose (07/10/2017 12:10 AM EST) P athologist Signature POC Glucose 173 65 - 199 [place] mg/dL [facility] Comment: Supplemental ranges: <140 mg/dL before meals <180 mg/dL all other times of the day Specimen Anatomical Collection Method Collection Time Receive d Time (Source) Location / / Volume Laterality Blood specimen 07/10/2017 12:10 7 (specimen) AM EST 12:10 AM EST Yuan Webber MD POINT OF CARE TEST ORDERABLE S Performing Organization Address City/State/[place] [address] POCT Glucose (07/09/2017 11:01 PM EST) P athologist Signature POC Glucose 140 65 - 199 [place] mg/dL [facility] Comment: Supplemental ranges: <140 mg/dL before meals <180 mg/dL all other times of the day Specimen Anatomical Collection Method Collection Time Receive d Time (Source) Location / / Volume Laterality Blood specimen 07/09/2017 11:01 7 (specimen) PM EST 11:01 PM EST Yuan Webber MD POINT OF CARE TEST ORDERABLE S Performing Organization Address City/State/[place] [address] POCT Glucose (07/09/2017 10:05 PM EST) P athologist Signature POC Glucose 144 65 - 199 [facility] RYAN mg/dL [facility] Comment: Supplemental ranges: <140 mg/dL before meals <180 mg/dL all other times of the day Specimen Anatomical Collection Method Collection Time Receive d Time (Source) Location / / Volume Laterality Blood specimen 07/09/2017 10:05 7 (specimen) PM EST 10:05 PM EST Yuan Webber MD POINT OF CARE TEST ORDERABLE S Performing Organization Address City/State/ZIP Code Phon e Number [address] POCT Glucose (07/09/2017 9:31 PM EST) athologist Signature POC Glucose 121 65 - 199 [place] mg/dL [facility] Comment: Supplemental ranges: <140 mg/dL [...] [facility]/ZIP Code Phon e Number [address] POCT Glucose (07/09/2017 9:03 PM EST) athologist Signature POC Glucose 98 65 - 199 [place] mg/dL [facility] Comment: Supplemental ranges: <140 mg/dL [...] [facility]/[place] [address] POCT Glucose (07/09/2017 8:09 PM EST) athologist Signature POC Glucose 117 65 - 199 [place] mg/dL [facility] Comment: Supplemental ranges: <140 mg/dL before meals <180 mg/dL all other times of the day Specimen Anatomical Collection Method Collection Time Receive d Time (Source) Location / / Volume Laterality Blood specimen 07/09/2017 8:09 PM 017 8:09 (specimen) EST PM EST Yuan Webber MD POINT OF CARE TEST ORDERABLE S Performing Organization Address City/State/ZIP Code Phon e Number [address] POCT Glucose (07/09/2017 5:40 PM EST) athologist Signature POC Glucose 155 65 - 199 [place] mg/dL [facility] Comment: Supplemental ranges: <140 mg/dL [...] [facility]/ZIP Code Phon e Number [address] POCT Glucose (07/09/2017 4:24 PM EST) athologist Signature POC Glucose 164 65 - 199 [facility] RY[facility] mg/dL [facility] Comment: Supplemental ranges: <140 mg/dL before meals <180 mg/dL all other times of the day Specimen Anatomical Collection Method Collection Time Receive d Time (Source) Location / / Volume Laterality Blood specimen 07/09/2017 4:24 PM 017 4:24 (specimen) EST PM EST Yuan Webber MD POINT OF CARE TEST ORDERABLE S Performing Organization Address City/State/ZIP Code Phon e Number [address] POCT Glucose (07/09/2017 3:19 PM EST) athologist Signature POC Glucose 166 65 - 199 [facility] RY[place] mg/dL [facility] Comment: Supplemental ranges: <140 mg/dL before meals <180 mg/dL all other times of the day Specimen Anatomical Collection Method Collection Time Receive d Time (Source) Location / / Volume Laterality Blood specimen 07/09/2017 3:19 PM 017 3:19 (specimen) EST PM EST Yuan Webber MD POINT OF CARE TEST ORDERABLE S Performing Organization Address City/State/[place] [address] POCT Glucose (07/09/2017 2:26 PM EST) athologist Signature POC Glucose 179 65 - 199 [place] mg/dL [facility] Comment: Supplemental ranges: <140 mg/dL [...] [facility]/[place] [address] (ABNORMAL) POCT Glucose (07/09/2017 1:29 PM EST) athologist Signature POC Glucose 210 (H) 65 - 199 [place] mg/dL [facility] Comment: Supplemental ranges: <140 mg/dL before meals <180 mg/dL all other times of the day Specimen Anatomical Collection Method Collection Time Receive d Time (Source) Location / / Volume Laterality Blood specimen 07/09/2017 1:29 PM 017 1:29 (specimen) EST PM EST Yuan Webber MD POINT OF CARE TEST ORDERABLE S Performing Organization Address City/State/[place] [address] POCT Glucose (07/09/2017 12:20 PM EST) athologist Signature POC Glucose 172 65 - 199 [place] mg/dL [facility] Comment: Supplemental ranges: <140 mg/dL before meals <180 mg/dL all other times of the day Specimen Anatomical Collection Method Collection Time Receive d Time (Source) Location / / Volume Laterality Blood specimen 07/09/2017 12:20 7 (specimen) PM EST 12:20 PM EST Yuan Webber MD POINT OF CARE TEST ORDERABLE S Performing Organization Address City/State/[place] [address] [facility] [address] POCT Glucose (07/09/2017 11:24 AM EST) P athologist Signature POC Glucose 156 65 - 199 [place] mg/dL [facility] Comment: Supplemental ranges: <140 mg/dL before meals <180 mg/dL all other times of the day Specimen Anatomical Collection Method Collection Time Receive d Time (Source) Location / / Volume Laterality Blood specimen 07/09/2017 11:24 7 (specimen) AM EST 11:24 AM EST Yuan Webber MD POINT OF CARE TEST ORDERABLE S Performing Organization Address City/State/[place] [address] [facility] [address] POCT Glucose (07/09/2017 11:11 AM EST) athologist Signature POC Glucose 172 65 - 199 [place] mg/dL [facility] Comment: Supplemental ranges: <140 mg/dL before meals <180 mg/dL all other times of the day Specimen Anatomical Collection Method Collection Time Receive d Time (Source) Location / / Volume Laterality Blood specimen 07/09/2017 11:11 7 (specimen) AM EST 11:11 AM EST Yuan Webber MD POINT OF CARE TEST ORDERABLE S Performing Organization Address City/State/[place] [address] [facility] [address] POCT Glucose (07/09/2017 10:08 AM EST) athologist Signature POC Glucose 176 65 - 199 [place] mg/dL [facility] Comment: Supplemental ranges: <140 mg/dL before meals <180 mg/dL all other times of the day Specimen Anatomical Collection Method Collection Time Receive d Time (Source) Location / / Volume Laterality Blood specimen 07/09/2017 10:08 7 (specimen) AM EST 10:08 AM EST uYan Webber MD POINT OF CARE TEST ORDERABLE S Performing Organization Address City/State/[place] [address] POCT Glucose (07/09/2017 8:02 AM EST) P athologist Signature POC Glucose 178 65 - 199 [facility] mg/dL [facility] Comment: Supplemental ranges: <140 mg/dL before meals <180 mg/dL all other times of the day Specimen Anatomical Collection Method Collection Time Receive d Time (Source) Location / / Volume Laterality Blood specimen 07/09/2017 8:02 AM 017 8:02 (specimen) EST AM EST Yuan Webber MD POINT OF CARE TEST ORDERABLE S Performing Organization Address City/State/[place] [address] (ABNORMAL) BLOOD GAS 2 ARTERIAL (07/09/2017 5:37 AM EST) Analysis Performed At Patho logist Time Signature pH Art 7.36 7.35 - [facility] [address] [facility] LABORATORY pCO2 Art 38 35 - 45 [facility] LABORATORY pO2 Art 79 (L) 85 - 104 [facility] LABORATORY HCO3 Art 20.9 20.0 - [facility] 26.0 [facility] mmol/L [facility] LAB[facility] BE Art -4.6 (L) -3.0 - 3.0 [facility] mmol/L [facility] Hgb Blood Gas 10.5 (L) 13.7 - [facility] 16.5 gm/dL [facility] O2HB Art 93.8 (L) 94.0 - [facility] 97.0 % [facility] COHB Art 0.3 % [facility] LABORATORY Comment: Nonsmokers: 0.5-1.5% COHB Smokers: Variable, but usually less than 10% Toxic: 20-30% COHB Lethal: Greater than 60% COHB METHB Art 0.6 <=1.5 % [facility] LABORATORY Na Whole Blood 141 135 [...] Blood 113 (H) 98 - 107 mmol/L [facility] LABORATORY Gluc Whole Bld 175 65 - 199 mg/dL [facility] LABORATORY Comment: Diabetes: >=200 mg/dL plus symp toms. Lactate WB 1.0 0.5 - 2.2 mmol/L [facility] FIO2 Art 40 % [facility] PF Ratio Art 198 [facility] LABORATORY Specimen Anatomical Collection Method Collection Time Receive d Time (Source) Location / / Volume Laterality Blood specimen 07/09/2017 5:37 AM 017 5:37 (specimen) EST AM EST Yuan Webber MD CHEMISTRY ORDERABLES Performing Organization Address City/[facility]/[place] [address] POCT Glucose (07/09/2017 3:27 AM EST) P athologist Signature POC Glucose 192 65 - 199 [facility] mg/dL [facility] Comment: Supplemental ranges: <140 mg/dL [...] [facility]/[place] [address] (ABNORMAL) Basic Metabolic Panel (non-fasting) (07/09/2017 2:30 AM EST) P athologist Signature Glucose Lvl 179 65 - 199 [facility] mg/dL [facility] Comment: Diabetes: >=200 mg/dL plus symp toms BUN 17 10 - 20 mg/dL [facility]OR[facility]ORY Creatinine 1.34 0.80 - 1.50 mg/dL [facility] LABORATORY [...] Anion Gap 12 5 - 15 mmol/L [facility]ORY Calcium 7.1 (L) 8.5 - 10.5 mg/dL [facility] Comment: result [id number]-[id number] Estimated GFR 53 (L) >=60 [facility] Comment: The reported eGFR should be multiplied b y 1.2 for patients. The MDRD is not an appropriate measure o f renal function for patients with body mass extremes or in patients with acute kidney failure. [email or web address]/DHnkdep [email or web address]/DHMCnkf Specimen Anatomical Collection Method Collection Time Receive d Time (Source) Location / / Volume Laterality Blood specimen Venous Draw / 07/09/2017 2:30 AM 2016 2:42 (specimen) Unknown EST AM EST Resulting Agency Comment Spec In Lab Yuan Webber MD CHEMISTRY ORDERABLES Performing Organization Address City/State/[place] [address] (ABNORMAL) Potassium (07/09/2017 2:30 AM EST) P athologist Signature Potassium 5.1 (H) 3.5 - 5.0 [facility] mmol/L [facility] Comment: Please note: ??Patients with [...] Organization Address City/State/[place] [address] (ABNORMAL) Hemogram (07/09/2017 2:30 AM EST) Analysis Performed At Patho logist Time Signature WBC 12.5 (H) 4.0 - 9.5 [facility] x10(3)/[facility] LABORATORY RBC 3.38 (L) 4.58 - [facility] 5.54 [facility] x10(6)/[facility] LABORATORY Hemoglobin 10.1 (L) 13.7 - [facility] 16.5 gm/dL [facility]ORY Hematocrit 30.3 (L) 40.5 - [facility] 48.5 % [facility] MCV 89.6 82.9 - [facility] 93.1 [facility] LABORATORY MCH 29.9 27.5 - [place] 32.[address] [facility]AT[facility] MCHC 33.3 32.0 - [facility] 35.7 gm/dL [facility] Platelets 127 (L) 145 - 357 [facility] x10(3)/[facility] LABORATORY RDWSD 49.3 (H) 36.0 - [place] 45.0 [facility] LABORATORY RDWCV 15.2 (H) 11.4 - [facility]AN 13.8 % [facility] LABORATORY MPV 9.9 7.6 - 12.9 [facility] LABORATORY nRBC % Auto 0.0 % [facility] LABORATORY nRBC Abs Auto 0.000 0.000 - [place] 0.000 [facility] x10(3)/[facility] LABORATORY Specimen Anatomical Collection Method Collection Time Receive d Time (Source) Location / / Volume Laterality Blood specimen 07/09/2017 2:30 AM 017 2:41 (specimen) EST AM EST Resulting Agency Comment Spec In Lab Yuan Webber MD HEMATOLOGY ORDERABLES Performing Organization Address City/[facility]/ZIP Code Phon e Number [address] POCT Glucose (07/09/2017 2:10 AM EST) P athologist Signature POC Glucose 169 65 - 199 [place] mg/dL [facility] Comment: Supplemental ranges: <140 mg/dL [...] [facility]/[place] [address] POCT Glucose (07/09/2017 1:01 AM EST) P athologist Signature POC Glucose 173 65 - 199 [place] mg/dL [facility] Comment: Supplemental ranges: <140 mg/dL before meals <180 mg/dL all other times of the day Specimen Anatomical Collection Method Collection Time Receive d Time (Source) Location / / Volume Laterality Blood specimen 07/09/2017 1:01 AM 017 1:01 (specimen) EST AM EST Yuan Webbre MD POINT OF CARE TEST ORDERABLE S Performing Organization Address City/[facility]/ZIP Code Phon e Number [address] Blood culture (07/09/2017 12:40 AM EST) [facility] [facility] Method Time Signature Blood Culture No growth BARBARA DAVIS at [address] [facility] Specimen Anatomical Collection Method Collection Time Receive d Time (Source) Location / / Volume Laterality Blood specimen STRUCTURE OF RIGHT 07/09/2017 12:40 3:58 (specimen) UPPER LIMB / AM EST AM EST Unknown Resulting Agency Comment Spec In Lab Yuan Webber MD MICROBIOLOGY - BLOOD ORDERAB LES Performing Organization Address City/State/[place] [address] Blood culture (07/09/2017 12:30 AM EST) [facility] World Reviewer Method Time Signature Blood Culture No growth BARBARA DAVIS at [address] [facility] Specimen Anatomical Collection Method Collection Time Receive d Time (Source) Location / / Volume Laterality Blood specimen STRUCTURE OF LEFT 07/09/2017 12:30 1211/2016 3:59 (specimen) UPPER LIMB / AM EST AM EST Unknown Resulting Agency Comment Spec In Lab Yuan Webber MD MICROBIOLOGY - BLOOD ORDERAB LES Performing Organization Address City/[facility]/[place] [address] (ABNORMAL) Urinalysis Microscopic Exam (07/09/2017 12:05 AM EST) Analysis Performed At Patho logist Time Signature RBC UA 32 (H) 0 - 3 /HPF [facility] WBC UA 5 (H) 0 - 3 /HPF [facility] Squam Epith UA <1 <=4 /HPF [facility] Hyaline Cast 17 (H) 0 - 2 /LPF [facility] Gran Cast UA 1 (H) <=0 /LPF [facility] Uric Ac Bianca Rare (A) None /HPF [facility] Specimen (Source) Anatomical Collection Method Collection Time Re ceived Time Location / / Volume Laterality Urine specimen 07/09/2017 12:05 07/09/ 7 obtained via AM EST 12:39 AM EST indwelling urinary catheter (specimen) Resulting Agency Comment Spec In Lab Yuan Webber MD URINE ORDERABLES Performing Organization Address City/State/[place] [address] (ABNORMAL) Urinalysis with reflex Culture (07/09/2017 12:05 AM EST) [facility] World Reviewer Method Time Signature Glucose UA Negative Negative BARBARA DAVIS mg/dL [facility] Protein UA 30 (A) Negative [facility] Bilirubin UA Negative Negative [facility] Comment: Clinical correlation required for positi ve Urine Bilirubin results as false positive may occur with some drugs and d rug related products. If a false positive is suspected a serum total bili yeager should be considered if clinically indicated. Urobilinogen UA Normal Normal mg/dL [facility] pH UA 5.0 5.0 - 8.0 [facility] Blood UA Moderate (A) Negative mg/dL [facility] Ketones UA Negative Negative mg/dL [facility] Nitrite UA Negative Negative [facility] Leukocytes UA Negative Negative [facility]ORY Appearance UA Hazy (A) Clear [facility] Spec Grant UA 1.025 1.002 - 1.030 [facility] Color UA Yellow Yellow [facility] Culture Reflexed No [facility] Specimen (Source) Anatomical Collection Method Collection Time Re ceived Time Location / / Volume Laterality Urine specimen 07/09/2017 12:05 7 obtained via AM EST 12:39 AM EST indwelling urinary catheter (specimen) Resulting Agency Comment Spec In Lab Yuan Webber MD URINE ORDERABLES Performing Organization Address City/[facility]/[place] [address] POCT Glucose (07/08/2017 11:01 PM EST) P athologist Signature POC Glucose 191 65 - 199 [facility] mg/dL [facility] Comment: Supplemental ranges: <140 mg/dL before meals <180 mg/dL all other times of the day Specimen Anatomical Collection Method Collection Time Receive d Time (Source) Location / / Volume Laterality Blood specimen 07/08/2017 11:01 7 (specimen) PM EST 11:01 PM EST Yuan Webber MD POINT OF CARE TEST ORDERABLE S Performing Organization Address City/State/[place] [address] POCT Glucose (07/08/2017 10:04 PM EST) athologist Signature POC Glucose 198 65 - 199 [facility] mg/dL [facility] Comment: Supplemental ranges: <140 mg/dL before meals <180 mg/dL all other times of the day Specimen Anatomical Collection Method Collection Time Receive d Time (Source) Location / / Volume Laterality Blood specimen 07/08/2017 10:04 7 (specimen) PM EST 10:04 PM EST Yuan Webber MD POINT OF CARE TEST ORDERABLE S Performing Organization Address City/State/ZIP Code Phon e Number [address] Prepare Albumin 5% in 250 mL (07/08/2017 8:49 PM EST) athologist Signature Dispensed? Yes [facility] Specimen Anatomical Collection Method Collection Time Receive d Time (Source) Location / / Volume Laterality Blood specimen No Charge / 07/08/2017 8:49 PM 017 8:51 (specimen) Unknown EST PM EST Resulting Agency Comment Spec In Lab [facility] ORDERABLES Performing Organization Address City/State/ZIP Code Phon e Number [address] POCT Glucose (07/08/2017 8:28 PM EST) athologist Signature POC Glucose 195 65 - 199 BARBARA RYAN mg/dL [facility] Comment: Supplemental ranges: <140 mg/dL before meals <180 mg/dL all other times of the day Specimen Anatomical Collection Method Collection Time Receive d Time (Source) Location / / Volume Laterality Blood specimen 07/08/2017 8:28 PM 017 8:28 (specimen) EST PM EST Yuan Webber MD POINT OF CARE TEST ORDERABLE S Performing Organization Address City/State/[place] [address] (ABNORMAL) POCT Glucose (07/08/2017 7:13 PM EST) P athologist Signature POC Glucose 220 (H) 65 - 199 [facility] mg/dL [facility] Comment: Supplemental ranges: <140 mg/dL before meals <180 mg/dL all other times of the day Specimen Anatomical Collection Method Collection Time Receive d Time (Source) Location / / Volume Laterality Blood specimen 07/08/2017 7:13 PM 017 7:13 (specimen) EST PM EST Yuan Webber MD POINT OF CARE TEST ORDERABLE S Performing Organization Address City/State/ZIP Code Phon e Number [address] POCT Glucose (07/08/2017 5:04 PM EST) athologist Signature POC Glucose 147 65 - 199 [facility] mg/dL [facility] Comment: Supplemental ranges: <140 mg/dL before meals <180 mg/dL all other times of the day Specimen Anatomical Collection Method Collection Time Receive d Time (Source) Location / / Volume Laterality Blood specimen 07/08/2017 5:04 PM 017 5:04 (specimen) EST PM EST Yuan Webber MD POINT OF CARE TEST ORDERABLE S Performing Organization Address City/State/[place] [address] (ABNORMAL) BLOOD GAS 2 ARTERIAL (07/08/2017 4:13 PM EST) Analysis Performed At Patho logist Time Signature pH Art 7.38 7.35 - [facility] [address] [facility] pCO2 Art 36 35 - 45 [facility] LABORATORY pO2 Art 91 85 - 104 [facility]ORY HCO3 Art 20.9 20.0 - [facility] 26.0 [facility] mmol/L [facility] BE Art -4.2 (L) -3.0 - 3.0 [facility] mmol/L [facility] Hgb Blood Gas 11.7 (L) 13.7 - [facility] 16.5 gm/dL [facility] O2HB Art 95.1 94.0 - [facility] 97.0 % [facility] COHB Art 0.6 % [facility] Comment: Nonsmokers: 0.5-1.5% COHB Smokers: Variable, but usually less than 10% Toxic: 20-30% COHB Lethal: Greater than 60% COHB METHB Art 0.6 <=1.5 % [facility] Na Whole Blood 139 135 [...] Blood 110 (H) 98 - 107 mmol/L [facility] Gluc Whole Bld 155 65 - 199 mg/dL [facility] Comment: Diabetes: >=200 mg/dL plus symp toms. Lactate WB 1.4 0.5 - 2.2 mmol/L [facility] FIO2 Art 40 % [facility] PF Ratio Art 228 [facility] Specimen Anatomical Collection Method Collection Time Receive d Time (Source) Location / / Volume Laterality Blood specimen 07/08/2017 4:13 PM 017 4:13 (specimen) EST PM EST Yuan Webber MD CHEMISTRY ORDERABLES Performing Organization Address City/State/[place] [address] POCT Glucose (07/08/2017 4:01 PM EST) P athologist Signature POC Glucose 148 65 - 199 [facility] mg/dL [facility] Comment: Supplemental ranges: <140 mg/dL before meals <180 mg/dL all other times of the day Specimen Anatomical Collection Method Collection Time Receive d Time (Source) Location / / Volume Laterality Blood specimen 07/08/2017 4:01 PM 017 4:01 (specimen) EST PM EST Yuan Webber MD POINT OF CARE TEST ORDERABLE S Performing Organization Address City/State/ZIP Code Phon e Number [address] POCT Glucose (07/08/2017 3:21 PM EST) athologist Signature POC Glucose 118 65 - 199 BARBARA ZHAORYAN mg/dL [facility] Comment: Supplemental ranges: <140 mg/dL before meals <180 mg/dL all other times of the day Specimen Anatomical Collection Method Collection Time Receive d Time (Source) Location / / Volume Laterality Blood specimen 07/08/2017 3:21 PM 017 3:21 (specimen) EST PM EST Yuan Webber MD POINT OF CARE TEST ORDERABLE S Performing Organization Address City/State/[place] [address] POCT Glucose (07/08/2017 2:01 PM EST) athologist Signature POC Glucose 129 65 - 199 BARBARA RYAN mg/dL [facility] Comment: Supplemental ranges: <140 mg/dL before meals <180 mg/dL all other times of the day Specimen Anatomical Collection Method Collection Time Receive d Time (Source) Location / / Volume Laterality Blood specimen 07/08/2017 2:01 PM 017 2:01 (specimen) EST PM EST Yuan Webber MD POINT OF CARE TEST ORDERABLE S Performing Organization Address City/State/[place] [address] POCT Glucose (07/08/2017 11:53 AM EST) athologist Signature POC Glucose 156 65 - 199 BARBARA RYAN mg/dL [facility] Comment: Supplemental ranges: <140 mg/dL before meals <180 mg/dL all other times of the day Specimen Anatomical Collection Method Collection Time Receive d Time (Source) Location / / Volume Laterality Blood specimen 07/08/2017 11:53 7 (specimen) AM EST 11:53 AM EST Yuan Webber MD POINT OF CARE TEST ORDERABLE S Performing Organization Address City/State/ZIP Code Phon e Number [address] POCT Glucose (07/08/2017 11:04 AM EST) athologist Signature POC Glucose 181 65 - 199 [facility] mg/dL [facility] Comment: Supplemental ranges: <140 mg/dL [...] [facility]/[place] [address] (ABNORMAL) POCT Glucose (07/08/2017 9:24 AM EST) athologist Signature POC Glucose 203 (H) 65 - 199 [facility] mg/dL [facility] Comment: Supplemental ranges: <140 mg/dL before meals <180 mg/dL all other times of the day Specimen Anatomical Collection Method Collection Time Receive d Time (Source) Location / / Volume Laterality Blood specimen 07/08/2017 9:24 AM 017 9:24 (specimen) EST AM EST Yuan Webber MD POINT OF CARE TEST ORDERABLE S Performing Organization Address City/State/[place] [address] APTT (07/08/2017 8:40 AM EST) athologist Signature PTT 33 25 - 35 sec [facility] Comment: The recommended therapeutic range for fu ll dose, unfractionated heparin at [facility] is 80 ? 114 seconds. [...] [facility]/[place] [address] (ABNORMAL) Prothrombin Time (07/08/2017 8:40 AM EST) P athologist Signature PT 15.6 (H) 11.8 - 14.0 [facility] LABORATORY INR 1.3 (H) 0.9 - [...] [facility]/[place] [address] (ABNORMAL) POCT Glucose (07/08/2017 7:38 AM EST) P athologist Signature POC Glucose 232 (H) 65 - 199 [facility] mg/dL [facility] Comment: Supplemental ranges: <140 mg/dL [...] [facility]/[place] [address] (ABNORMAL) POCT Glucose (07/08/2017 7:07 AM EST) athologist Signature POC Glucose 234 (H) 65 - 199 [facility] mg/dL [facility] Comment: Supplemental ranges: <140 mg/dL before meals <180 mg/dL all other times of the day Specimen Anatomical Collection Method Collection Time Receive d Time (Source) Location / / Volume Laterality Blood specimen 07/08/2017 7:07 AM 017 7:07 (specimen) EST AM EST Yuan Webber MD POINT OF CARE TEST ORDERABLE S Performing Organization Address City/State/[place] [address] (ABNORMAL) POCT Glucose (07/08/2017 6:04 AM EST) athologist Signature POC Glucose 225 (H) 65 - 199 [facility] mg/dL [facility] Comment: Supplemental ranges: <140 mg/dL before meals <180 mg/dL all other times of the day Specimen Anatomical Collection Method Collection Time Receive d Time (Source) Location / / Volume Laterality Blood specimen 07/08/2017 6:04 AM 017 6:04 (specimen) EST AM EST Yuan Webber MD POINT OF CARE TEST ORDERABLE S Performing Organization Address City/State/[place] [address] (ABNORMAL) POCT Glucose (07/08/2017 5:31 AM EST) athologist Signature POC Glucose 216 (H) 65 - 199 [facility] mg/dL [facility] Comment: Supplemental ranges: <140 mg/dL before meals <180 mg/dL all other times of the day Specimen Anatomical Collection Method Collection Time Receive d Time (Source) Location / / Volume Laterality Blood specimen 07/08/2017 5:31 AM 017 5:31 (specimen) EST AM EST Yuan Webber MD POINT OF CARE TEST ORDERABLE S Performing Organization Address City/State/[place] [address] (ABNORMAL) POCT Glucose (07/08/2017 4:52 AM EST) P athologist Signature POC Glucose 257 (H) 65 - 199 [facility] mg/dL [facility] Comment: Supplemental ranges: <140 mg/dL before meals <180 mg/dL all other times of the day Specimen Anatomical Collection Method Collection Time Receive d Time (Source) Location / / Volume Laterality Blood specimen 07/08/2017 4:52 AM 017 4:52 (specimen) EST AM EST Daphne Shahid MD POINT OF CARE TEST ORDERABLE S Performing Organization Address City/State/[place] [address] (ABNORMAL) BLOOD GAS 2 ARTERIAL (07/08/2017 4:04 AM EST) Analysis Performed At Patho logist Time Signature pH Art 7.30 (L) 7.35 - [facility] [address] [facility] pCO2 Art 41 35 - 45 [facility]ORATORY pO2 Art 83 (L) 85 - 104 [facility]ORY HCO3 Art 19.6 (L) 20.0 - [facility] 26.0 [facility] mmol/[facility] BE Art -6.8 (L) -3.0 - 3.0 [facility] mmol/L [facility] Hgb Blood Gas 12.2 (L) 13.7 - [facility] 16.5 gm/dL [facility] O2HB Art 93.5 (L) 94.0 - [facility] 97.0 % [facility] COHB Art 0.4 % [facility] Comment: Nonsmokers: 0.5-1.5% COHB Smokers: Variable, but usually less than 10% Toxic: 20-30% COHB Lethal: Greater than 60% COHB METHB Art 0.8 <=1.5 % [facility] Na [...] Whole Blood 107 98 - 107 mmol/L [facility] Gluc Whole Bld 274 (H) 65 - 199 mg/dL [facility] Comment: Diabetes: >=200 mg/dL plus symp toms. Lactate WB 4.4 (Critical) 0.5 - 2.2 mmol/L [facility] Comment: Noted by instrumentation instructor. FIO2 Art 40 % [facility] PF Ratio Art 208 [facility] Specimen Anatomical Collection Method Collection Time Receive d Time (Source) Location / / Volume Laterality Blood specimen 07/08/2017 4:04 AM 017 4:04 (specimen) EST AM EST Daphne Shahid MD CHEMISTRY ORDERABLES Performing Organization Address City/[facility]/ZIP Code Phon e Number [address] Scan, Peripheral Blood (07/08/2017 [...] Organization Address City/State/[place] [address] (ABNORMAL) Differential, Automated (07/08/2017 4:00 AM EST) Patholo gist Method Time Signature Neutrophils % 85.4 % [facility] Neutr Abs (ANC) 16.07 (H) 1.70 - [facility] 6.10 [facility] x10(3)/[facility] L LABORATORY Lymphocytes % 3.5 % [facility] Lymphocytes Abs 0.6 (L) 0.9 - 3.2 [facility] x10(3)/[facility] LABORATORY Monocytes % 10.4 % [facility] Monocyte Abs 2.0 (H) 0.3 - 0.9 [facility] x10(3)/[facility] LABORATORY Eosinophils % 0.0 % [facility] Eosinophils Abs 0.0 0.0 - 0.4 [facility] x10(3)/[facility] LABORATORY Basophils % 0.1 % [facility] Basophils Abs 0.0 0.0 - 0.1 [facility] x10(3)/[facility] LABORATORY Immature Gran % 0.60 % [...] Gran Abs 0.12 (H) 0.00 - 0.04 x10(3)/[facility] LABORATORY Specimen Anatomical Collection Method Collection Time Receive d Time (Source) Location / / Volume Laterality Blood specimen 07/08/2017 4:00 AM 017 4:09 (specimen) EST AM EST Resulting Agency Comment Spec In Lab Yuan Webber MD HEMATOLOGY ORDERABLES Performing Organization Address City/State/[place] [address] (ABNORMAL) Hemogram (07/08/2017 4:00 AM EST) Analysis Performed At Patho logist Time Signature WBC 18.8 (H) 4.0 - 9.5 [facility] x10(3)/[facility] LABORATORY RBC 4.00 (L) 4.58 - [facility] 5.54 [facility] x10(6)/[facility] LABORATORY Hemoglobin 11.9 (L) 13.7 - [facility] 16.5 gm/dL [facility] Hematocrit 35.9 (L) 40.5 - BARBARA DAVIS 48.5 % [facility] MCV 89.8 82.9 - [facility] 93.1 [facility] LABORATORY MCH 29.8 27.5 - BARBARA OLIVASCK 32.[address] [facility] MCHC 33.1 32.0 - BARBARA DAVIS 35.7 gm/dL [facility] Platelets 232 145 - 357 [facility] x10(3)/[facility] LABORATORY RDWSD 47.6 (H) 36.0 - BARBARA DAVIS 45.0 [facility] LABORATORY RDWCV 14.5 (H) 11.4 - BARBARA RYAN 13.8 % [facility] MPV 9.5 7.6 - 12.9 [facility] LABORATORY nRBC % Auto 0.0 % [facility] nRBC Abs Auto 0.000 0.000 - BARBARA ZHAORYAN 0.000 [facility] x10(3)/[facility] LABORATORY Specimen Anatomical Collection Method Collection Time Receive d Time (Source) Location / / Volume Laterality Blood specimen 07/08/2017 4:00 AM 017 4:09 (specimen) EST AM EST Resulting Agency Comment Spec In Lab Yuan Webber MD HEMATOLOGY ORDERABLES Performing Organization Address City/State/ZIP Code Phon e Number [place] [id number] (ABNORMAL) Electrolytes panel (07/08/2017 4:00 AM EST) P athologist Signature Sodium 139 135 - 145 [facility] mmol/L [facility] Potassium 4.7 3.5 - 5.0 [facility] mmol/L [facility] Comment: result [id number] Please note: [...] CO2 21 (L) 22 - 31 mmol/L [facility] Anion Gap 14 5 - 15 mmol/L [facility] Specimen Anatomical Collection Method Collection Time Receive d Time (Source) Location / / Volume Laterality Blood specimen 07/08/2017 4:00 AM 017 4:10 (specimen) EST AM EST Resulting Agency Comment Spec In Lab Yuan Webber MD CHEMISTRY ORDERABLES Performing Organization Address City/State/[place] [address] (ABNORMAL) Cardiac Enzymes (LEB/CGP) (07/08/2017 4:00 AM EST) P athologist Signature Troponin-T 1.88 (H) 0.00 - [facility] 0.00 ng/mL [facility] Comment: The 99th percentile for [...] additional sample may be indicated. Reference: Third [place] Definition of Myocardial Infarction. Journal of the [place] [employer] 2012;60:1581-98 CK, Total 413 [...] Address City/State/ZIP Code Phon e Number [address] (ABNORMAL) Glucose, fasting (07/08/2017 4:00 AM EST) P athologist Signature Glucose 287 (H) 65 - 99 [facility] Fasting mg/dL [facility] Comment: ?Fasting* Glucose Interpretive C [...] [facility]/[place] [address] (ABNORMAL) Creatinine (07/08/2017 4:00 AM EST) Analysis Performed At Patho logist Time Signature Creatinine 1.55 (H) 0.80 - [facility] 1.50 mg/dL [facility] Estimated GFR 44 (L) >=60 [facility] Comment: The reported eGFR should be multiplied b y 1.2 for patients. The MDRD is not an appropriate measure o f renal function for patients with body mass extremes or in patients with acute kidney failure. http://BackupAgent/DHnkdep [email or web address].Ubidyne/DHMCnkf Specimen Anatomical Collection Method Collection Time Receive d Time (Source) Location / / Volume Laterality Blood specimen 07/08/2017 4:00 AM 017 4:09 (specimen) EST AM EST Resulting Agency Comment Spec In Lab Yuan Webber MD CHEMISTRY ORDERABLES Performing Organization Address City/[facility]/ZIP Code Phon e Number [address] BUN (07/08/2017 4:00 AM EST) P athologist Signature BUN 16 10 - 20 [facility] mg/dL [facility] Specimen Anatomical Collection Method Collection Time Receive d Time (Source) Location / / Volume Laterality Blood specimen 07/08/2017 4:00 AM 017 4:09 (specimen) EST AM EST Resulting Agency Comment Spec In Lab Yuan Webber MD CHEMISTRY ORDERABLES Performing Organization Address City/[facility]/[place] [address] (ABNORMAL) POCT Glucose (07/08/2017 3:00 AM EST) P athologist Signature POC Glucose 273 (H) 65 - 199 [facility] mg/dL [facility] Comment: Supplemental ranges: <140 mg/dL [...] [facility]/ZIP Code Phon e Number [address] (ABNORMAL) POCT Glucose (07/08/2017 1:57 AM EST) P athologist Signature POC Glucose 288 (H) 65 - 199 [facility]dL [facility] Comment: Supplemental ranges: <140 mg/dL [...] [facility]/[place] [address] (ABNORMAL) POCT Glucose (07/08/2017 1:01 AM EST) athologist Signature POC Glucose 315 (H) 65 - 199 [facility] mg/dL [facility] Comment: Supplemental ranges: <140 mg/dL [...] [facility]/[place] [address] (ABNORMAL) BLOOD GAS 2 ARTERIAL (07/08/2017 12:09 AM EST) athologist Signature pH Art 7.26 7.35 - [facility] (Critical) 7.[address] [facility] Comment: Noted by instrumentation instructor. pCO2 Art 41 35 - 45 mmHg [facility] pO2 Art 96 85 - 104 mmHg [facility] HCO3 Art 17.7 (L) 20.0 - 26.0 mmol/L [facility] BE Art -9.4 (L) -3.0 - 3.0 mmol/L [facility] Hgb Blood Gas 12.4 (L) 13.7 - 16.5 gm/dL [facility] O2HB Art 94.7 94.0 - 97.0 % [facility] COHB Art 0.2 % [facility] Comment: Nonsmokers: 0.5-1.5% COHB Smokers: Variable, but usually less than 10% Toxic: 20-30% COHB Lethal: Greater than 60% COHB METHB Art 0.6 <=1.5 % [facility] Na Whole Blood 141 135 [...] Blood 109 (H) 98 - 107 mmol/L [facility] Gluc Whole Bld 315 (H) 65 - 199 mg/dL [facility] Comment: Diabetes: >=200 mg/dL plus symp toms. Lactate WB 7.6 (Critical) 0.5 - 2.2 mmol/L [facility] Comment: Noted by instrumentation instructor. FIO2 Art 40 % [facility] PF Ratio Art 240 [facility] Specimen Anatomical Collection Method Collection Time Receive d Time (Source) Location / / Volume Laterality Blood specimen Arterial Draw / 07/08/2017 12:09 2016 5:31 (specimen) Unknown AM EST AM EST Resulting Agency Comment Spec In Lab Samy Maldonado MD CHEMISTRY ORDERABLES Performing Organization Address City/State/[place] [address] (ABNORMAL) POCT Glucose (07/07/2017 10:56 PM EST) P athologist Signature POC Glucose 292 (H) 65 - 199 [facility] mg/dL [facility] Comment: Supplemental ranges: <140 mg/dL before meals <180 mg/dL all other times of the day Specimen Anatomical Collection Method Collection Time Receive d Time (Source) Location / / Volume Laterality Blood specimen 07/07/2017 10:56 7 (specimen) PM EST 10:56 PM EST Daphne Shahid MD POINT OF CARE TEST ORDERABLE S Performing Organization Address City/State/[place] [address] (ABNORMAL) BLOOD GAS 2 ARTERIAL (07/07/2017 10:04 PM EST) athologist Signature pH Art 7.22 7.35 - [facility] (Critical) 7.[address] [facility] Comment: Noted by instrumentation instructor. pCO2 Art 42 35 - 45 mmHg [facility] pO2 Art 94 85 - 104 mmHg [facility] HCO3 Art 16.9 (L) 20.0 - 26.0 mmol/L [facility] BE Art -10.7 (L) -3.0 - 3.0 mmol/L [facility] Hgb Blood Gas 13.0 (L) 13.7 - 16.5 gm/dL [facility] O2HB Art 93.8 (L) 94.0 - 97.0 % [facility] COHB Art 0.7 % [facility] Comment: Nonsmokers: 0.5-1.5% COHB Smokers: Variable, but usually less than 10% Toxic: 20-30% COHB Lethal: Greater than 60% COHB METHB Art 0.7 <=1.5 % [facility] Na Whole Blood 140 135 - 145 mmol/L [facility] K Whole Blood 3.3 (L) 3.5 - 5.0 mmol/L [facility] Comment: Please note: Patients [...] Whole Blood 107 98 - 107 mmol/L [facility] Gluc Whole Bld 304 (H) 65 - 199 mg/dL [facility] Comment: Diabetes: >=200 mg/dL plus symp toms. Lactate WB 8.2 (Critical) 0.5 - 2.2 mmol/L [facility] Comment: Noted by instrumentation instructor. FIO2 Art 40 % [facility] PF Ratio Art 235 [facility] Specimen Anatomical Collection Method Collection Time Receive d Time (Source) Location / / Volume Laterality Blood specimen 07/07/2017 10:04 7 (specimen) PM EST 10:04 PM EST Daphne Shahid MD CHEMISTRY ORDERABLES Performing Organization Address [facility]/ZIP [facility] [place] Number [address] (ABNORMAL) Hemoglobin (07/07/2017 10:00 PM EST) P athologist Signature Hemoglobin 12.8 (L) 13.7 - [facility] 16.5 gm/dL [facility] Specimen Anatomical Collection Method Collection Time Receive d Time (Source) Location / / Volume Laterality Blood specimen 07/07/2017 10:00 7 (specimen) PM EST 10:13 PM EST Resulting Agency Comment Spec In Lab Yuan Webber MD HEMATOLOGY ORDERABLES Performing Organization Address City/[facility]/[place] [address] (ABNORMAL) Potassium (07/07/2017 10:00 PM EST) P athologist Signature Potassium 3.4 (L) 3.5 - 5.0 [facility] mmol/L [facility] Comment: Please note: ??Patients with [...] Organization Address City/State/[place] [address] (ABNORMAL) POCT Glucose (07/07/2017 8:49 PM EST) P athologist Signature POC Glucose 241 (H) 65 - 199 [facility] mg/dL [facility] Comment: Supplemental ranges: <140 mg/dL [...] [facility]/[place] [address] Prepare Albumin 5% in [...] [facility]/[place] [address] EKG 12 Lead (07/07/2017 7:17 PM EST) Component Value Ref Range Test Analysis Performed Pathologis t Method Time At Signature Ventricular rate 75 BPM MUSE SYSTEM Atrial Rate 75 BPM MUSE SYSTEM P-R Interval 168 ms MUSE SYSTEM QRS Duration 104 ms MUSE SYSTEM Q-T Interval 462 ms MUSE SYSTEM QTC Calculated 515 ms MUSE SYSTEM (Bezet) Calculated P Melrose 52 degrees MUSE SYSTEM Calculated R Melrose -40 degrees MUSE SYSTEM Calculated T Melrose 39 degrees MUSE SYSTEM INTERPRETATION Normal sinus [...] pH Art 7.21 7.35 - [facility] (Critical) 7.[address] [facility] Comment: Noted by instrumentation instructor. pCO2 Art 50 (H) 35 - 45 mmHg [facility] pO2 Art 238 (H) 85 - 104 mmHg [facility] HCO3 Art 19.8 (L) 20.0 - 26.0 mmol/L [facility] BE Art -8.1 (L) -3.0 - 3.0 mmol/L [facility] Hgb Blood Gas 12.8 (L) 13.7 - 16.5 gm/dL [facility] O2HB Art 97.5 (H) 94.0 - 97.0 % [facility] COHB Art 0.5 % [facility] Comment: Nonsmokers: 0.5-1.5% COHB Smokers: Variable, but usually less than 10% Toxic: 20-30% COHB Lethal: Greater than 60% COHB METHB Art 0.7 <=1.5 % [facility] Na Whole Blood 140 135 - 145 mmol/L [facility] K Whole Blood 3.0 (Critical) 3.5 - 5.0 mmol/L [facility] Comment: Noted by instrumentation instructor. Please note: Patients with WBC >100,000 may have falsely elevated Potassium levels. Contact the Clinical Chemistry L aboratory if there are any questions. ICa Whole Blood 1.07 (L) 1.15 - 1.33 mmol/L [facility] Comment: Note: ??Total bilirubin higher than 20 m g/dL may lead to falsely low ionized calcium. CL Whole Blood 107 98 - 107 mmol/L [facility] Gluc Whole Bld 270 (H) 65 - 199 mg/dL [facility] Comment: Diabetes: >=200 mg/dL plus symp toms. Lactate WB 4.9 (Critical) 0.5 - 2.2 mmol/L [facility] Comment: Noted by instrumentation instructor. FIO2 Art 100 % [facility] PF Ratio Art 238 [facility] Specimen Anatomical Collection Method Collection Time Receive d Time (Source) Location / / Volume Laterality Blood specimen 07/07/2017 6:57 PM 017 6:57 (specimen) EST PM EST Daphne Shahid MD CHEMISTRY ORDERABLES Performing Organization Address City/State/[place] [address] (ABNORMAL) BLOOD GAS 2 ARTERIAL (07/07/2017 5:31 PM EST) athologist Signature pH Art 7.29 7.35 - [facility] (Critical) 7.[address] [facility] Comment: Noted by instrumentation instructor. pCO2 Art 48 (H) 35 - 45 mmHg [facility] pO2 Art 137 (H) 85 - 104 mmHg [facility] HCO3 Art 22.4 20.0 - 26.0 mmol/L [facility] BE Art -4.3 (L) -3.0 - 3.0 mmol/L [facility] Hgb Blood Gas 10.0 (L) 13.7 - 16.5 gm/dL [facility] O2HB Art 97.3 (H) 94.0 - 97.0 % [facility] COHB Art 0.3 % [facility] Comment: Nonsmokers: 0.5-1.5% COHB Smokers: Variable, but usually less than 10% Toxic: 20-30% COHB Lethal: Greater than 60% COHB METHB Art 0.3 <=1.5 % [facility] Na Whole Blood 132 (L) 135 - 145 mmol/L [facility] K Whole Blood 4.0 3.5 - 5.0 mmol/L [facility] Comment: Please note: Patients [...] Whole Blood 105 98 - 107 mmol/L [facility] Gluc Whole Bld 293 (H) 65 - 199 mg/dL [facility] Comment: Diabetes: >=200 mg/dL plus symp toms. Lactate WB 3.1 (H) 0.5 - 2.2 mmol/L [facility] Specimen Anatomical Collection Method Collection Time Receive d Time (Source) Location / / Volume Laterality Blood specimen 07/07/2017 5:31 PM 017 5:31 (specimen) EST PM EST Daphne Shahid MD CHEMISTRY ORDERABLES Performing Organization Address City/[facility]/ZIP Code Phon e Number [address] Fibrinogen (07/07/2017 5:30 PM EST) P athologist Signature Fibrinogen 224 180 - 510 [facility] mg/dL [facility] Comment: Called by: JEET, Read [...] Organization Address City/[facility]/[place]IP [facility] [place] [address] APTT (07/07/2017 5:30 PM EST) P athologist Signature PTT 30 25 - 35 sec [facility] Comment: The recommended therapeutic range for fu ll dose, unfractionated heparin at [facility] is 80 ? 114 seconds. [...] [facility]/[place] [address] (ABNORMAL) Prothrombin Time (07/07/2017 5:30 PM EST) P athologist Signature PT 19.0 (H) 11.8 - 14.0 [facility] [...] [facility]/[place] [address] (ABNORMAL) Hemogram (07/07/2017 5:30 PM EST) P athologist Signature WBC 19.6 (H) 4.0 - 9.5 [facility] x10(3)/[facility] LABORATORY RBC 3.08 (L) 4.58 - [facility] 5.54 [facility] x10(6)/[facility] LABORATORY Hemoglobin 9.2 (L) 13.7 - [facility] 16.5 gm/dL [facility] Hematocrit 28.0 (L) 40.5 - [facility] 48.5 % [facility] Comment: This result has been called to MONICA MORAN by DONALD GROSSMAN on 07 07 2017 at 1759, and has been read back. MCV 90.9 82.9 - 93.1 fL [facility] MCH 29.9 27.5 - 32.1 pg [facility] MCHC 32.9 32.0 - 35.7 gm/dL [facility] Platelets 155 145 - 357 x10(3)/[facility] LABORATORY RDWSD 46.5 (H) 36.0 - 45.0 [facility] LABORATORY RDWCV 14.1 (H) 11.4 - 13.8 % [facility] MPV 9.5 7.6 - 12.9 [facility] LABORATORY nRBC % Auto 0.0 % [facility] nRBC Abs Auto 0.000 0.000 - 0.000 x10(3)/[facility] LABORATORY Specimen Anatomical Collection Method Collection Time Receive d Time (Source) Location / / Volume Laterality Blood specimen 07/07/2017 5:30 PM 017 5:34 (specimen) EST PM EST Resulting Agency Comment Spec In Lab Yifan Perez MD HEMATOLOGY ORDERABLES Performing Organization Address City/State/[place] [address] Prepare Platelets, Apheresis (07/07/2017 5:00 PM EST) P athologist Signature Dispensed? Yes [facility] Specimen Anatomical Collection Method Collection Time Receive d Time (Source) Location / / Volume Laterality Blood specimen 07/07/2017 5:00 PM 017 4:58 (specimen) EST PM EST Daphne Shahid MD BLOOD BANK ORDERABLES Performing Organization Address City/State/[place] [address] Platelet count (07/07/2017 4:55 PM EST) P athologist Signature Platelets 177 145 - 357 [facility] x10(3)/[facility] LABORATORY Plat Immature 1.5 0.0 - 7.4 [facility] % % [facility] Comment: Limitation of the Immature Platelet Frac tion (IPF)-May be less reliable when the platelet count is less than 40h582/u L due to statistical imprecision. The IPF [...] in a decreased state of production. References: [employer] The Clinical Value of the Immature Platelet Fraction (IPF) in Cell Recovery Document Number 10-1143 12/2010 [employer] The Role of the Imm ature [...] Organization Address City/State/[place] [address] [facility] [address] (ABNORMAL) Hemoglobin and Hematocrit, blood (07/07/2017 4:55 PM EST) P athologist Signature Hemoglobin 9.1 (L) 13.7 - 16.5 [facility] gm/dL [facility] Comment: This result has been [...] Organization Address City/State/[place] [address] (ABNORMAL) BLOOD GAS 2 ARTERIAL (07/07/2017 4:38 PM EST) Analysis Performed At Patho logist Time Signature pH Art 7.37 7.35 - [facility] 7.[address] [facility] pCO2 Art 44 35 - 45 [facility] mmHg [facility] pO2 Art 322 (H) 85 - 104 [facility]ORATORY HCO3 Art 24.9 20.0 - [facility] 26.0 [facility] mmol/L [facility] BE Art -0.4 -3.0 - 3.0 [facility] mmol/L [facility] Hgb Blood Gas 10.1 (L) 13.7 - [facility] 16.5 gm/dL [facility] O2HB Art 98.7 (H) 94.0 - [facility] 97.0 % [facility] COHB Art 0.1 % [facility] Comment: Nonsmokers: 0.5-1.5% COHB Smokers: Variable, but usually less than 10% Toxic: 20-30% COHB Lethal: Greater than 60% COHB METHB Art 0.3 <=1.5 % [facility] Na Whole Blood 130 (L) 135 - 145 mmol/L [facility] K Whole Blood 5.7 (H) 3.5 - 5.0 mmol/L [facility] Comment: Please note: Patients with WBC >100,000 may have falsely elevated Potassium levels. Contact the Clinical Chemistry L aboratory if there are any questions. ICa Whole Blood 0.89 (Critical) 1.15 - 1.33 mmol/L [facility] Comment: Noted by instrumentation instructor. Note: ??Total bilirubin higher than 20 m g/dL may lead to falsely low ionized calcium. CL Whole Blood 101 98 - 107 mmol/L [facility] Gluc Whole Bld 295 [...] Organization Address City/State/[place] [address] (ABNORMAL) BLOOD GAS 2 VENOUS (07/07/2017 4:06 PM EST) Analysis Performed At Patho logist Time Signature pH Cody 7.31 (L) 7.32 - [facility] 7.[address] [facility] pCO2 Cody 47 41 - 51 [facility] LABORATORY pO2 Cody 53 (H) 25 - 40 [facility]ORATORY HCO3 Cody 22.7 mmol/L [facility] BE Cody -3.7 mmol/L [facility] Hgb Blood Gas 10.2 (L) 13.7 - [facility] 16.5 gm/dL [facility] O2HB Ocdy 81.0 % [facility] COHB Cody 1.0 % [facility] Comment: Nonsmokers: 0.5-1.5% COHB Smokers: Variable, but usually less than 10% Toxic: 20-30% COHB Lethal: Greater than 60% COHB METHB Cody 0.3 <=1.5 % [facility] Na Whole Blood 132 (L) 135 - 145 mmol/L [facility] K Whole Blood 5.3 (H) 3.5 - 5.0 mmol/L [facility] Comment: Please note: Patients with WBC >100,000 may have falsely elevated Potassium levels. Contact the Clinical Chemistry L aboratory if there are any questions. ICa Whole Blood 0.90 (Critical) 1.15 - 1.33 mmol/L [facility] Comment: Noted by instrumentation instructor. Note: ??Total bilirubin higher than 20 m g/dL may lead to falsely low ionized calcium. CL Whole Blood 100 98 - 107 mmol/L [facility] Gluc Whole Bld 231 (H) 65 - 199 mg/dL [facility] Comment: Diabetes: >=200 mg/dL plus symp toms Lactate WB 1.1 0.5 - 2.2 mmol/L [facility] BGas Source Venous [facility] Specimen Anatomical Collection Method Collection Time Receive d Time (Source) Location / / Volume Laterality Blood specimen 07/07/2017 4:06 PM 017 4:06 (specimen) EST PM EST Daphne Shahid MD CHEMISTRY ORDERABLES Performing Organization Address City/State/[place] [address] (ABNORMAL) BLOOD GAS 2 ARTERIAL (07/07/2017 4:05 PM EST) Analysis Performed At Patho logist Time Signature pH Art 7.36 7.35 - [facility] 7.[address] [facility] pCO2 Art 40 35 - 45 [facility] mmHg [facility] pO2 Art 282 (H) 85 - 104 [facility] LABORATORY HCO3 Art 22.1 20.0 - [facility] 26.0 [facility] mmol/L [facility] BE Art -3.4 (L) -3.0 - 3.0 [facility] mmol/L [facility] Hgb Blood Gas 10.2 (L) 13.7 - [facility] 16.5 gm/dL [facility] O2HB Art 98.4 (H) 94.0 - [facility] 97.0 % [facility] COHB Art 0.3 % [facility] Comment: Nonsmokers: 0.5-1.5% COHB Smokers: Variable, but usually less than 10% Toxic: 20-30% COHB Lethal: Greater than 60% COHB METHB Art 0.3 <=1.5 % [facility] Na Whole Blood 131 (L) 135 - 145 mmol/L [facility] K Whole Blood 5.4 (H) 3.5 - 5.0 mmol/L [facility] Comment: Please note: Patients with WBC >100,000 may have falsely elevated Potassium levels. Contact the Clinical Chemistry L aboratory if there are any questions. ICa Whole Blood 0.86 (Critical) 1.15 - 1.33 mmol/L [facility] Comment: Noted by instrumentation instructor. Note: ??Total bilirubin higher than 20 m g/dL may lead to falsely low ionized calcium. CL Whole Blood 101 98 - 107 mmol/L [facility] Gluc Whole Bld 260 [...] Organization Address City/State/[place] [address] (ABNORMAL) BLOOD GAS 2 ARTERIAL (07/07/2017 2:29 PM EST) Analysis Performed At Patho logist Time Signature pH Art 7.43 7.35 - [facility] [address] [facility] pCO2 Art 36 35 - 45 [facility] LABORATORY pO2 Art 221 (H) 85 - 104 [facility] LABORATORY HCO3 Art 23.2 20.0 - [facility] 26.0 [facility] mmol/L [facility] BE Art -1.2 -3.0 - 3.0 [facility] mmol/L [facility] Hgb Blood Gas 13.9 13.7 - [facility] 16.5 gm/dL [facility] O2HB Art 97.8 (H) 94.0 - [facility] 97.0 % [facility] COHB Art 1.1 % [facility] Comment: Nonsmokers: 0.5-1.5% COHB Smokers: Variable, but usually less than 10% Toxic: 20-30% COHB Lethal: Greater than 60% COHB METHB Art 0.3 <=1.5 % [facility] Na Whole Blood 139 135 [...] Organization Address City/State/[place] [address] Prepare Coag Factors (Non-Hemophilia) (07/07/2017 1:25 PM EST) P athologist Signature Dispensed? Yes [facility] Specimen Anatomical Collection Method Collection Time Receive d Time (Source) Location / / Volume Laterality Blood specimen 07/07/2017 1:25 PM 017 1:21 (specimen) EST PM EST Daphne Shahid MD BLOOD BANK ORDERABLES Performing Organization Address City/State/ZIP Code Phon e Number [address] Prepare RBC (07/07/2017 1:10 PM EST) P athologist Signature Dispensed? Yes [facility] Specimen Anatomical Collection Method Collection Time Receive d Time (Source) Location / / Volume Laterality Blood specimen 07/07/2017 1:10 PM 017 1:05 (specimen) EST PM EST Daphne Shahid MD BLOOD BANK ORDERABLES Performing Organization Address City/State/ZIP Code Phon e Number [address] POCT Glucose (07/07/2017 11:56 AM EST) P athologist Signature POC Glucose 188 65 - 199 [facility] mg[facility]dL [facility] Comment: Supplemental ranges: <140 mg/dL before meals <180 mg/dL all other times of the day Specimen Anatomical Collection Method Collection Time Receive d Time (Source) Location / / Volume Laterality Blood specimen 07/07/2017 11:56 7 (specimen) AM EST 11:56 AM EST Daphne Shahid MD POINT OF CARE TEST ORDERABLE S Performing Organization Address City/State/ZIP Code Phon e Number [address] POCT Glucose (07/07/2017 11:05 AM EST) P athologist Signature POC Glucose 168 65 - 199 [facility] mg/dL [facility] Comment: Supplemental ranges: <140 mg/dL before meals <180 mg/dL all other times of the day Specimen Anatomical Collection Method Collection Time Receive d Time (Source) Location / / Volume Laterality Blood specimen 07/07/2017 11:05 7 (specimen) AM EST 11:05 AM EST Daphne Shahid MD POINT OF CARE TEST ORDERABLE S Performing Organization Address City/State/ZIP Code Phon e Number [address] POCT Glucose (07/07/2017 10:02 AM EST) athologist Signature POC Glucose 191 65 - 199 [facility] mg/dL [facility] Comment: Supplemental ranges: <140 mg/dL before meals <180 mg/dL all other times of the day Specimen Anatomical Collection Method Collection Time Receive d Time (Source) Location / / Volume Laterality Blood specimen 07/07/2017 10:02 7 (specimen) AM EST 10:02 AM EST Daphne Shahid MD POINT OF CARE TEST ORDERABLE S Performing Organization Address City/State/ZIP Code Phon e Number [address] POCT Glucose (07/07/2017 7:53 AM EST) athologist Signature POC Glucose 178 65 - 199 [facility]dL [facility] Comment: Supplemental ranges: <140 mg/dL before meals <180 mg/dL all other times of the day Specimen Anatomical Collection Method Collection Time Receive d Time (Source) Location / / Volume Laterality Blood specimen 07/07/2017 7:53 AM 017 7:53 (specimen) EST AM EST Daphne Shahid MD POINT OF CARE TEST ORDERABLE S Performing Organization Address City/State/[place] [address] POCT Glucose (07/07/2017 7:03 AM EST) athologist Signature POC Glucose 188 65 - 199 [facility] mg/dL [facility] Comment: Supplemental ranges: <140 mg/dL before meals <180 mg/dL all other times of the day Specimen Anatomical Collection Method Collection Time Receive d Time (Source) Location / / Volume Laterality Blood specimen 07/07/2017 7:03 AM 017 7:03 (specimen) EST AM EST Daphne Shahid MD POINT OF CARE TEST ORDERABLE S Performing Organization Address City/State/[place] [address] (ABNORMAL) POCT Glucose (07/07/2017 6:17 AM EST) athologist Signature POC Glucose 207 (H) 65 - 199 [facility] mg/dL [facility] Comment: Supplemental ranges: <140 mg/dL before meals <180 mg/dL all other times of the day Specimen Anatomical Collection Method Collection Time Receive d Time (Source) Location / / Volume Laterality Blood specimen 07/07/2017 6:17 AM 017 6:17 (specimen) EST AM EST Daphne Shahid MD POINT OF CARE TEST ORDERABLE S Performing Organization Address City/State/ZIP Code Phon e Number [place] [id number] Differential, Automated (07/07/2017 5:15 AM EST) athologist [facility] [place] Neutrophils % 69.7 % [facility] Neutr Abs (ANC) 5.32 1.70 - [facility] 6.10 [facility] x10(3)/[facility] LABORATORY Lymphocytes % 16.3 % [facility] Lymphocytes Abs 1.2 0.9 - 3.2 [facility] x10(3)/[facility] LABORATORY Monocytes % 10.5 % [facility] Monocyte Abs 0.8 0.3 - 0.9 [facility] x10(3)/[facility] LABORATORY Eosinophils % 2.5 % [facility] Eosinophils Abs 0.2 0.0 - 0.4 [facility] x10(3)/[facility] LABORATORY Basophils % 0.7 % [facility] Basophils Abs 0.0 0.0 - 0.1 [facility] x10(3)/[facility] LABORATORY Immature [...] Melisa Gran Abs 0.02 0.00 - 0.04 x10(3)/[facility]ORY Specimen Anatomical Collection Method Collection Time Receive d Time (Source) Location / / Volume Laterality Blood specimen 07/07/2017 5:15 AM 017 5:34 (specimen) EST AM EST Resulting Agency Comment Spec In Lab Daphne Shahid MD HEMATOLOGY ORDERABLES Performing Organization Address City/State/[place] [address] (ABNORMAL) Hemogram (07/07/2017 5:15 AM EST) Analysis Performed At Patho logist Time Signature WBC 7.6 4.0 - 9.5 [facility] x10(3)/[facility] LABORATORY RBC 4.82 4.58 - [facility] 5.54 [facility] x10(6)/[facility] LABORATORY Hemoglobin 14.4 13.7 - [facility] 16[facility] gm/dL [facility] Hematocrit 42.1 40.5 - [facility] 48.5 % [facility] MCV 87.3 82.9 - [facility] 93.1 [facility] LABORATORY MCH 29.9 27.5 - [facility] 32.[address] [facility] MCHC 34.2 32.0 - [facility] 35.7 gm/dL [facility] Platelets 188 145 - 357 [facility] x10(3)/[facility] LABORATORY RDWSD 45.1 (H) 36.0 - [facility] 45.0 [facility] LABORATORY RDWCV 14.3 (H) 11.4 - [facility] 13.8 % [facility] MPV 9.4 7.6 - 12.9 [facility] LABORATORY nRBC % Auto 0.0 % [facility] nRBC Abs Auto 0.000 0.000 - [facility] 0.000 [facility] x10(3)/[facility] LABORATORY Specimen Anatomical Collection Method Collection Time Receive d Time (Source) Location / / Volume Laterality Blood specimen 07/07/2017 5:15 AM 017 5:34 (specimen) EST AM EST Resulting Agency Comment Spec In Lab Daphne Shahid MD HEMATOLOGY ORDERABLES Performing Organization Address City/State/[place] [address] (ABNORMAL) APTT (07/07/2017 5:15 AM EST) athologist Signature PTT 69 (H) 25 - 35 sec [facility] Comment: The recommended therapeutic range for fu ll dose, unfractionated heparin at [facility] is 80 ? 114 seconds. [...] [facility]/[place] [address] Magnesium (07/07/2017 5:15 AM EST) athologist Signature Magnesium 0.94 0.69 - 1.07 [facility] mmol/L [facility] Specimen Anatomical Collection Method Collection Time Receive d Time (Source) Location / / Volume Laterality Blood specimen 07/07/2017 5:15 AM 017 5:34 (specimen) EST AM EST Resulting Agency Comment Spec In Lab Daphne Shahid MD CHEMISTRY ORDERABLES Performing Organization Address City/[facility]/[place] [address] (ABNORMAL) Basic Metabolic Panel (non-fasting) (07/07/2017 5:15 AM EST) P athologist Signature Glucose Lvl 203 (H) 65 - 199 [facility] mg/dL [facility] Comment: Diabetes: >=200 mg/dL plus symp toms BUN 15 10 - 20 mg/dL [facility] Creatinine 1.09 0.80 - 1.50 mg/dL [facility] Sodium 142 135 - 145 [...] [facility] Estimated GFR >60 >=60 [facility] Comment: The reported eGFR should be multiplied b y 1.2 for patients. The MDRD is not an appropriate measure o f renal function for patients with body mass extremes or in patients with acute kidney failure. [email or web address]/DHnkdep [email or web address]/DHMCnkf Specimen Anatomical Collection Method Collection Time Receive d Time (Source) Location / / Volume Laterality Blood specimen 07/07/2017 5:15 AM 017 5:34 (specimen) EST AM EST Resulting Agency Comment Spec In Lab Daphne Shahid MD CHEMISTRY ORDERABLES Performing Organization Address City/State/[place] [address] (ABNORMAL) Cardiac Enzymes (LEB/CGP) (07/07/2017 5:15 AM EST) P athologist Signature Troponin-T 2.07 (H) 0.00 - [facility] 0.00 ng/mL [facility] Comment: The 99th percentile for [...] additional sample may be indicated. Reference: Third [place] Definition of Myocardial Infarction. Journal of the [place] College [employer] 2012;60:1581-98 CK, Total 88 0 - 200 unit/L [facility] Specimen Anatomical Collection Method Collection Time Receive d Time (Source) Location / / Volume Laterality Blood specimen 07/07/2017 5:15 AM 017 5:34 (specimen) EST AM EST Resulting Agency Comment Spec In Lab Daphne Shahid MD CHEMISTRY ORDERABLES Performing Organization Address City/[facility]/ZIP [facility] Phon e Number [address] POCT Glucose (07/07/2017 5:01 AM EST) athologist Signature POC Glucose 182 65 - 199 [facility] mg/dL [facility] Comment: Supplemental ranges: <140 mg/dL before meals <180 mg/dL all other times of the day Specimen Anatomical Collection Method Collection Time Receive d Time (Source) Location / / Volume Laterality Blood specimen 07/07/2017 5:01 AM 017 5:01 (specimen) EST AM EST Daphne Shahid MD POINT OF CARE TEST ORDERABLE S Performing Organization Address City/[facility] Phon e Number [address] POCT Glucose (07/07/2017 4:08 AM EST) athologist Signature POC Glucose 199 65 - 199 [facility] mg/dL [facility] Comment: Supplemental ranges: <140 mg/dL before meals <180 mg/dL all other times of the day Specimen Anatomical Collection Method Collection Time Receive d Time (Source) Location / / Volume Laterality Blood specimen 07/07/2017 4:08 AM 017 4:08 (specimen) EST AM EST Daphne Shahid MD POINT OF CARE TEST ORDERABLE S Performing Organization Address City/State/ZIP Code Phon e Number [address] POCT Glucose (07/07/2017 3:03 AM EST) athologist Signature POC Glucose 188 65 - 199 [facility] mg/dL [facility] Comment: Supplemental ranges: <140 mg/dL before meals <180 mg/dL all other times of the day Specimen Anatomical Collection Method Collection Time Receive d Time (Source) Location / / Volume Laterality Blood specimen 07/07/2017 3:03 AM 017 3:03 (specimen) EST AM EST Daphne Shahid MD POINT OF CARE TEST ORDERABLE S Performing Organization Address City/State/[place] [address] (ABNORMAL) POCT Glucose (07/07/2017 2:08 AM EST) athologist Signature POC Glucose 200 (H) 65 - 199 [facility] mg/dL [facility] Comment: Supplemental ranges: <140 mg/dL before meals <180 mg/dL all other times of the day Specimen Anatomical Collection Method Collection Time Receive d Time (Source) Location / / Volume Laterality Blood specimen 07/07/2017 2:08 AM 017 2:08 (specimen) EST AM EST Daphne Shahid MD POINT OF CARE TEST ORDERABLE S Performing Organization Address City/State/ZIP Code Phon e Number [address] (ABNORMAL) POCT Glucose (07/07/2017 1:31 AM EST) P athologist Signature POC Glucose 209 (H) 65 - 199 [facility] mg/dL [facility] Comment: Supplemental ranges: <140 mg/dL before meals <180 mg/dL all other times of the day Specimen Anatomical Collection Method Collection Time Receive d Time (Source) Location / / Volume Laterality Blood specimen 07/07/2017 1:31 AM 017 1:31 (specimen) EST AM EST Daphne Shahid MD POINT OF CARE TEST ORDERABLE S Performing Organization Address City/State/[place] [address] XR Chest PA or [...] Glucose 161 65 - 199 [facility] mg/dL [facility] Comment: Supplemental ranges: <140 mg/dL before meals <180 mg/dL all other times of the day Specimen Anatomical Collection Method Collection Time Receive d Time (Source) Location / / Volume Laterality Blood specimen 07/07/2017 12:07 7 (specimen) AM EST 12:07 AM EST Daphne Shahid MD POINT OF CARE TEST ORDERABLE S Performing Organization Address City/State/[place] [address] (ABNORMAL) APTT (07/07/2017 12:00 AM EST) athologist Signature PTT 103 (H) 25 - 35 sec [facility] Comment: The recommended therapeutic range for fu ll dose, unfractionated heparin at [facility] is 80 ? 114 seconds. [...] [facility]/[place] [address] POCT Glucose (07/06/2017 9:55 PM EST) athologist Signature POC Glucose 109 65 - 199 [facility] mg[facility]dL [facility] Comment: Supplemental ranges: <140 mg/dL [...] [facility]/[place] [address] POCT Glucose (07/06/2017 9:04 PM EST) athologist Signature POC Glucose 120 65 - 199 [facility] mg/dL [facility] Comment: Supplemental ranges: <140 mg/dL [...] [facility]/[place] [address] POCT Glucose (07/06/2017 7:45 PM EST) athologist Signature POC Glucose 158 65 - 199 [facility] mg/dL [facility] Comment: Supplemental ranges: <140 mg/dL [...] [facility]/[place] [address] Potassium (07/06/2017 7:40 PM EST) athologist Signature Potassium 3.9 3.5 - 5.0 [facility] mmol/L [facility] Comment: Please note: ??Patients with [...] [facility]/[place] [address] (ABNORMAL) Cardiac Enzymes (LEB/CGP) (07/06/2017 7:40 PM EST) athologist Signature Troponin-T 2.27 (H) 0.00 - [facility] 0.00 ng/mL [facility] Comment: The 99th percentile for [...] additional sample may be indicated. Reference: Third [place] Definition of Myocardial Infarction. Journal of the [place] College [employer] Cardiology 2012;60:1581-98 CK, Total 93 0 - 200 unit/L [facility] Specimen Anatomical Collection Method Collection Time Receive d Time (Source) Location / / Volume Laterality Blood specimen 07/06/2017 7:40 PM 017 7:52 (specimen) EST PM EST Resulting Agency Comment Spec In Lab Daphne Shahid MD CHEMISTRY ORDERABLES Performing Organization Address City/State/[place] [address] (ABNORMAL) POCT Glucose (07/06/2017 7:13 PM EST) athologist Signature POC Glucose 200 (H) 65 - 199 [facility] mg/dL [facility] Comment: Supplemental ranges: <140 mg/dL [...] [facility]/[place] [address] (ABNORMAL) APTT (07/06/2017 6:15 PM EST) athologist Signature PTT 94 (H) 25 - 35 sec [facility] Comment: The recommended therapeutic range for fu ll dose, unfractionated heparin at [facility] is 80 ? 114 seconds. [...] [facility]/[place] [address] (ABNORMAL) POCT Glucose (07/06/2017 6:03 PM EST) athologist Signature POC Glucose 236 (H) 65 - 199 [facility] mg[facility]dL [facility] Comment: Supplemental ranges: <140 mg/dL [...] [facility]/[place] [address] (ABNORMAL) POCT Glucose (07/06/2017 5:01 PM EST) athologist Signature POC Glucose 235 (H) 65 - 199 [facility] mg/dL [facility] Comment: Supplemental ranges: <140 mg/dL before meals <180 mg/dL all other times of the day Specimen Anatomical Collection Method Collection Time Receive d Time (Source) Location / / Volume Laterality Blood specimen 07/06/2017 5:01 PM 017 5:01 (specimen) EST PM EST Daphne Shahid MD POINT OF CARE TEST ORDERABLE S Performing Organization Address City/State/[place] [address] (ABNORMAL) POCT Glucose (07/06/2017 4:06 PM EST) athologist Signature POC Glucose 202 (H) 65 - 199 [place] mg/dL [facility] Comment: Supplemental ranges: <140 mg/dL [...] [facility]/[place] [address] POCT Glucose (07/06/2017 2:59 PM EST) athologist Signature POC Glucose 178 65 - 199 [place] mg/dL [facility] Comment: Supplemental ranges: <140 mg/dL before meals <180 mg/dL all other times of the day Specimen Anatomical Collection Method Collection Time Receive d Time (Source) Location / / Volume Laterality Blood specimen 07/06/2017 2:59 PM 017 2:59 (specimen) EST PM EST Daphne Shahid MD POINT OF CARE TEST ORDERABLE S Performing Organization Address City/State/[place] [address] (ABNORMAL) Cardiac Enzymes (LEB/CGP) (07/06/2017 2:10 PM EST) athologist Signature Troponin-T 2.34 (H) 0.00 - [facility] 0.00 ng/mL [facility] Comment: The 99th percentile for [...] additional sample may be indicated. Reference: Third [place] Definition of Myocardial Infarction. Journal of the [place] College [employer] Cardiology 2012;60:1581-98 CK, Total 101 0 - 200 unit/L [facility] Specimen Anatomical Collection Method Collection Time Receive d Time (Source) Location / / Volume Laterality Blood specimen 07/06/2017 2:10 PM 017 2:26 (specimen) EST PM EST Resulting Agency Comment Spec In Lab Daphne Shahid MD CHEMISTRY ORDERABLES Performing Organization Address City/State/[place] [address] POCT Glucose (07/06/2017 2:08 PM EST) P athologist Signature POC Glucose 192 65 - 199 [facility] mg/dL [facility] Comment: Supplemental ranges: <140 mg/dL before meals <180 mg/dL all other times of the day Specimen Anatomical Collection Method Collection Time Receive d Time (Source) Location / / Volume Laterality Blood specimen 07/06/2017 2:08 PM 017 2:08 (specimen) EST PM EST Daphne Shahid MD POINT OF CARE TEST ORDERABLE S Performing Organization Address City/State/ZIP Code Phon e Number [address] POCT Glucose (07/06/2017 1:04 PM EST) P athologist Signature POC Glucose 162 65 - 199 [facility] mg/dL [facility] Comment: Supplemental ranges: <140 mg/dL [...] [facility]/ZIP Code Phon e Number [address] POCT Glucose (07/06/2017 12:05 PM EST) P athologist Signature POC Glucose 196 65 - 199 [facility] mg/dL [facility] Comment: Supplemental ranges: <140 mg/dL before meals <180 mg/dL all other times of the day Specimen Anatomical Collection Method Collection Time Receive d Time (Source) Location / / Volume Laterality Blood specimen 07/06/2017 12:05 7 (specimen) PM EST 12:05 PM EST Daphne Shahid MD POINT OF CARE TEST ORDERABLE S Performing Organization Address City/State/[place] [address] EKG 12 Lead (07/06/2017 12:00 PM EST) Component Value Ref Range Test Analysis Performed Pathologis t Method Time At Signature Ventricular rate 91 BPM MUSE SYSTEM Atrial Rate 91 BPM MUSE SYSTEM P-R Interval 140 ms MUSE SYSTEM QRS Duration 94 ms MUSE SYSTEM Q-T Interval 394 ms MUSE SYSTEM QTC Calculated 484 ms MUSE SYSTEM (Bezet) Calculated P Melrose 36 degrees MUSE SYSTEM Calculated R Melrose -19 degrees MUSE SYSTEM Calculated T Melrose 104 degrees MUSE SYSTEM INTERPRETATION Normal sinus rhythm MUSE SYSTEM 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) ST & T wave abnormality, consider lateral ischemia Abnormal ECG When compared with ECG of 05-JUL-2017 20:39, No significant change was found Confirmed by MD Luci, Taurus Braun ([id number]) on 07/06/2017 5:07:33 PM Specimen Anatomical Collection Method Collection Time Receive d Time (Source) Location / / Volume Laterality 07/06/2017 12:00 07/06/2017 5:07 PM EST PM EST Daphne Shahid MD ECG ORDERABLES Performing Organization Address City/State/ZIP Code Phon e Number MUSE SYSTEM ABORH Recheck Status (07/06/2017 12:00 PM EST) Patholo gist Method Time Signature ABORH Type Completed [facility] LABORATORY Specimen Anatomical Collection Method Collection Time Receive d Time (Source) Location / / Volume Laterality Blood specimen 07/06/2017 12:00 7 (specimen) PM EST 12:24 PM EST Resulting Agency Comment Spec In Lab Daphne Shahid MD BLOOD BANK ORDERABLES Performing Organization Address City/[facility]/[place] [address] Antibody screen (07/06/2017 12:00 PM EST) [facility] Method Time Signature Ab Screen Negative [facility] LABORATORY Expires at 07/09/2017 [facility] 235 on: [facility] Specimen Anatomical Collection Method Collection Time Receive d Time (Source) Location / / Volume Laterality Blood specimen 07/06/2017 12:00 7 (specimen) PM EST 12:24 PM EST Resulting Agency Comment Spec In Lab Daphne Shahid MD BLOOD BANK ORDERABLES Performing Organization Address City/[facility]/[place] [address] ABO/Rh Typing (07/06/2017 12:00 [...] Organization Address City/State/[place] [address] Prothrombin Time (07/06/2017 11:24 AM EST) athologist Signature PT 13.3 11.8 - 14.0 [facility] LABORATORY INR 1.0 0.9 - 1.1 [...] [facility]/[place] [address] (ABNORMAL) APTT (07/06/2017 11:24 AM EST) athologist Signature PTT 52 (H) 25 - 35 sec [facility] Comment: The recommended therapeutic range for fu ll dose, unfractionated heparin at [facility] is 80 ? 114 seconds. [...] Address City/State/ZIP Code Phon e Number [address] POCT Glucose (07/06/2017 11:02 AM EST) athologist Signature POC Glucose 187 65 - 199 [place] mg/dL [facility] Comment: Supplemental ranges: <140 mg/dL before meals <180 mg/dL all other times of the day Specimen Anatomical Collection Method Collection Time Receive d Time (Source) Location / / Volume Laterality Blood specimen 07/06/2017 11:02 7 (specimen) AM EST 11:02 AM EST Daphne Shahid MD POINT OF CARE TEST ORDERABLE S Performing Organization Address City/State/ZIP Code Phon e Number [address] POCT Glucose (07/06/2017 10:18 AM EST) athologist Signature POC Glucose 193 65 - 199 [facility] mg/dL [facility] Comment: Supplemental ranges: <140 mg/dL before meals <180 mg/dL all other times of the day Specimen Anatomical Collection Method Collection Time Receive d Time (Source) Location / / Volume Laterality Blood specimen 07/06/2017 10:18 7 (specimen) AM EST 10:18 AM EST Daphne Shahid MD POINT OF CARE TEST ORDERABLE S Performing Organization Address City/State/ZIP Code Phon e Number [address] POCT Glucose (07/06/2017 9:25 AM EST) athologist Signature POC Glucose 182 65 - 199 [place] mg/dL [facility] Comment: Supplemental ranges: <140 mg/dL before meals <180 mg/dL all other times of the day Specimen Anatomical Collection Method Collection Time Receive d Time (Source) Location / / Volume Laterality Blood specimen 07/06/2017 9:25 AM 017 9:25 (specimen) EST AM EST Daphne Shahid MD POINT OF CARE TEST ORDERABLE S Performing Organization Address City/State/[place] [address] (ABNORMAL) Cardiac Enzymes (LEB/CGP) (07/06/2017 8:10 AM EST) athologist Signature Troponin-T 2.26 (H) 0.00 - [facility] 0.00 ng/mL [facility] Comment: The 99th percentile for [...] additional sample may be indicated. Reference: Third [place] Definition of Myocardial Infarction. Journal of the [place] [employer] 2012;60:1581-98 CK, Total 124 0 - 200 unit/L [facility] Specimen Anatomical Collection Method Collection Time Receive d Time (Source) Location / / Volume Laterality Blood specimen 07/06/2017 8:10 AM 017 8:23 (specimen) EST AM EST Resulting Agency Comment Spec In Lab Daphne Shahid MD CHEMISTRY ORDERABLES Performing Organization Address City/State/ZIP Code Phon e Number [place] [id number] Magnesium (07/06/2017 8:10 AM EST) athologist Signature Magnesium 0.84 0.69 - 1.07 [facility] mmol/L [facility] Specimen Anatomical Collection Method Collection Time Receive d Time (Source) Location / / Volume Laterality Blood specimen 07/06/2017 8:10 AM 017 8:21 (specimen) EST AM EST Resulting Agency Comment Spec In Lab Daphne Shahid MD CHEMISTRY ORDERABLES Performing Organization Address City/[facility]/[place] [address] (ABNORMAL) Basic Metabolic Panel (non-fasting) (07/06/2017 8:10 AM EST) P athologist Signature Glucose Lvl 199 65 - 199 [facility] mg/dL [facility] Comment: Diabetes: >=200 mg/dL plus symp toms BUN 16 10 - 20 mg/dL [facility] Creatinine 1.04 0.80 - 1.50 mg/dL [facility] LABOR[facility] [...] [facility] Estimated GFR >60 >=60 [facility] Comment: The reported eGFR should be multiplied b y 1.2 for patients. The MDRD is not an appropriate measure o f renal function for patients with body mass extremes or in patients with acute kidney failure. http://Mixpanel.Ubidyne/DHnkdep http://Mixpanel.Ubidyne/DHMCnkf Specimen Anatomical Collection Method Collection Time Receive d Time (Source) Location / / Volume Laterality Blood specimen 07/06/2017 8:10 AM 017 8:21 (specimen) EST AM EST Resulting Agency Comment Spec In Lab Daphne Shahid MD CHEMISTRY ORDERABLES Performing Organization Address City/State/[place] [address] POCT Glucose (07/06/2017 7:34 AM EST) P athologist Signature POC Glucose 198 65 - 199 [facility]dL [facility] Comment: Supplemental ranges: <140 mg/dL before meals <180 mg/dL all other times of the day Specimen Anatomical Collection Method Collection Time Receive d Time (Source) Location / / Volume Laterality Blood specimen 07/06/2017 7:34 AM 017 7:34 (specimen) EST AM EST Daphne Shahid MD POINT OF CARE TEST ORDERABLE S Performing Organization Address City/State/ZIP Code Phon e Number [address] POCT Glucose (07/06/2017 7:03 AM EST) athologist Signature POC Glucose 181 65 - 199 [facility] mg/dL [facility] Comment: Supplemental ranges: <140 mg/dL before meals <180 mg/dL all other times of the day Specimen Anatomical Collection Method Collection Time Receive d Time (Source) Location / / Volume Laterality Blood specimen 07/06/2017 7:03 AM 017 7:03 (specimen) EST AM EST Daphne Shahid MD POINT OF CARE TEST ORDERABLE S Performing Organization Address City/State/[place] [address] XR Chest PA or [...] Glucose 172 65 - 199 [facility] mg/dL [facility] Comment: Supplemental ranges: <140 mg/dL before meals <180 mg/dL all other times of the day Specimen Anatomical Collection Method Collection Time Receive d Time (Source) Location / / Volume Laterality Blood specimen 07/06/2017 6:21 AM 017 6:21 (specimen) EST AM EST Daphne Shahid MD POINT OF CARE TEST ORDERABLE S Performing Organization Address City/State/[place] [address] POCT Glucose (07/06/2017 5:08 AM EST) athologist Signature POC Glucose 154 65 - 199 [facility] mg/dL [facility] Comment: Supplemental ranges: <140 mg/dL [...] [facility]/ZIP Code Phon e Number [address] POCT Glucose (07/06/2017 4:05 AM EST) athologist Signature POC Glucose 142 65 - 199 [facility]dL [facility] Comment: Supplemental ranges: <140 mg/dL [...] [facility]/ZIP Code Phon e Number [address] POCT Glucose (07/06/2017 3:00 AM EST) athologist Signature POC Glucose 116 65 - 199 [facility] mg/dL [facility] Comment: Supplemental ranges: <140 mg/dL before meals <180 mg/dL all other times of the day Specimen Anatomical Collection Method Collection Time Receive d Time (Source) Location / / Volume Laterality Blood specimen 07/06/2017 3:00 AM 017 3:00 (specimen) EST AM EST Daphne Shahid MD POINT OF CARE TEST ORDERABLE S Performing Organization Address City/State/ZIP Code Phon e Number [address] Potassium (07/06/2017 2:20 AM EST) athologist Signature Potassium 3.9 3.5 - 5.0 [facility] mmol/L [facility] Comment: Please note: ??Patients with [...] Organization Address City/State/[place] [address] Differential, Automated (07/06/2017 2:20 AM EST) athologist Signature Neutrophils % 72.9 % [facility] LABORATORY Neutr Abs (ANC) 5.53 1.70 - [facility] 6.10 [facility] x10(3)[facility] LABORATORY Lymphocytes % 16.4 % [facility] Lymphocytes Abs 1.2 0.9 - 3.2 [facility] x10(3)/[facility] LABORATORY Monocytes % 9.4 % [facility] Monocyte Abs 0.7 0.3 - 0.9 [facility] x10(3)[facility] LABORATORY Eosinophils % 0.5 % [facility] Eosinophils Abs 0.0 0.0 - 0.4 [facility] x10(3)[facility] LABORATORY Basophils % 0.4 % [facility] Basophils Abs 0.0 0.0 - 0.1 [facility] x10(3)/[facility] LABORATORY Immature Gran % 0.40 % [facility] Comment: Immature granulocytes(IG's)percentage an d absolute count will include metamyelocytes, myelocytes, and promyelo cytes. Blood smears from CBCs yielding IG's will be scanned manually for concor dance. If this scan disagrees with the automated IG or if promyelocytes are not ed, a manual differential will be performed. Melisa Gran Abs 0.03 0.00 - 0.04 x10(3)/[facility] MAR Y [facility] LABORATORY Specimen Anatomical Collection Method Collection Time Receive d Time (Source) Location / / Volume Laterality Blood specimen 07/06/2017 2:20 AM 017 2:33 (specimen) EST AM EST Resulting Agency Comment Spec In Lab Daphne Shahid MD HEMATOLOGY ORDERABLES Performing Organization Address City/State/[place] [address] (ABNORMAL) Hemogram (07/06/2017 2:20 AM EST) Analysis Performed At Patho logist Time Signature WBC 7.6 4.0 - 9.5 [facility] x[facility](3)/[facility] LABORATORY RBC 4.52 (L) 4.58 - [facility] RYAN 5.54 [facility] x10(6)/[facility] LABORATORY Hemoglobin 13.4 (L) 13.7 - [facility] 16.5 gm/dL [facility] Hematocrit 39.7 (L) 40.5 - [facility] 48.5 % [facility] MCV 87.8 82.9 - [facility] R[facility] 93.1 [facility] LABORATORY MCH 29.6 27.5 - [place] R[place]AN 32.[address] [facility] MCHC 33.8 32.0 - [place] 35.7 gm/dL [facility] Platelets 189 145 - 357 [facility] x10(3)/[facility] LABORATORY RDWSD 45.6 (H) 36.0 - [facility] RYAN 45.0 [facility] LABORATORY RDWCV 14.3 (H) 11.4 - [facility] RYAN 13.8 % [facility] LABORATORY MPV 9.1 7.6 - 12.9 [facility] nRBC % Auto 0.0 % [facility] LABORATORY nRBC Abs Auto 0.000 0.000 - [place] momondo 0.000 [facility] x10(3)/[facility] LABORATORY Specimen Anatomical Collection Method Collection Time Receive d Time (Source) Location / / Volume Laterality Blood specimen 07/06/2017 2:20 AM 017 2:33 (specimen) EST AM EST Resulting Agency Comment Spec In Lab Daphne Shahid MD HEMATOLOGY ORDERABLES Performing Organization Address City/State/[place] [address] (ABNORMAL) APTT (07/06/2017 2:20 AM EST) athologist Signature PTT 52 (H) 25 - 35 sec [facility] LABORATORY Comment: The recommended therapeutic range for fu ll dose, unfractionated heparin at [facility] is 80 ? 114 seconds. [...] Organization Address City/State/[place] [address] POCT Glucose (07/06/2017 2:20 AM EST) athologist [facility] POC Glucose 115 65 - 199 [facility] mg/dL [facility] Comment: Supplemental ranges: <140 mg/dL before meals <180 mg/dL all other times of the day Specimen Anatomical Collection Method Collection Time Receive d Time (Source) Location / / Volume Laterality Blood specimen 07/06/2017 2:20 AM 017 2:20 (specimen) EST AM EST Daphne Shahid MD POINT OF CARE TEST ORDERABLE S Performing Organization Address City/State/[place] [address] (ABNORMAL) Cardiac Enzymes (LEB/CGP) (07/06/2017 2:20 AM EST) athologist Signature Troponin-T 2.13 (H) 0.00 - [facility] 0.00 ng/mL [facility] Comment: The 99th percentile for [...] additional sample may be indicated. Reference: Third [place] Definition of Myocardial Infarction. Journal of the [place] College [employer]iology 2012;60:1581-98 CK, Total 129 0 - 200 unit/L [facility] LABORATORY Specimen Anatomical Collection Method Collection Time Receive d Time (Source) Location / / Volume Laterality Blood specimen 07/06/2017 2:20 AM 017 2:33 (specimen) EST AM EST Resulting Agency Comment Spec In Lab Daphne Shahid MD CHEMISTRY ORDERABLES Performing Organization Address City/State/[place] [address] (ABNORMAL) Hemoglobin A1c (07/06/2017 2:20 AM EST) Analysis Performed At Patho logist Time Signature Hemoglobin A1C 6.8 (H) 4.3 - 5.6 [facility] LABORATORY Comment: Reference Range: 4.3 - [...] S67-74 Est Avg Gluc See note mg/dL [facility] [...] with hemoglobinopathies. Additional resources are available on [facility] ADA website. Macario HAMMOND, Ruthann J, Deysi R, et al. ??Tr anslating the A1C assay into estimated average glucose values. ??Diabetes Care 2008:31(8):6467-6795. Specimen Anatomical Collection Method Collection Time Receive d Time (Source) Location / / Volume Laterality Blood specimen 07/06/2017 2:20 AM 017 2:34 (specimen) EST AM EST Resulting Agency Comment Spec In Lab Daphne Shahid MD CHEMISTRY ORDERABLES Performing Organization Address City/State/[place] [address] (ABNORMAL) Lipid Panel (07/06/2017 2:20 AM EST) [facility] Method Time Signature Chol, Total 150 <=239 [place] mg/dL [facility] LABORATORY Triglycerides 129 <=199 [place] mg/dL [facility] LABORATORY HDL 32 (L) >=40 [place] mg/dL [facility] LABORATORY LDL Cholesterol 92 <=190 [place] mg/dL [facility] LABORATORY Chol/HDL Ratio 4.7 ratio [place] [facility] LABOR[facility]ORY Lipid See Note [place] Interpretation [facility] LABOR[facility] Comment: Lipid management should be guided by a p atient? s ASCVD risk, goals and preferences. ACC/AHA Guidelines recommend high intens ity statin if clinical ASCVD or LDL greater than or equal to 190 mg/dL. http://Easy MetricsurSteek SA.com/PNS-GOD-Eqsnohnez Adults aged 40-75 with LDL 70-189 mg/dL should have their 10 year ASCVD risk estimated with the ACC/AHA ASCVD risk es timator http://tools.acc.org/WUCLL-Hesl-Lfqxuzrg r/ Statin should be discussed if risk [...] [facility]/[place] [address] POCT Glucose (07/06/2017 1:09 AM EST) athologist Signature POC Glucose 121 65 - 199 [facility] mg/dL [facility] Comment: Supplemental ranges: <140 mg/dL before meals <180 mg/dL all other times of the day Specimen Anatomical Collection Method Collection Time Receive d Time (Source) Location / / Volume Laterality Blood specimen 07/06/2017 1:09 AM 017 1:09 (specimen) EST AM EST Daphne Shahid MD POINT OF CARE TEST ORDERABLE S Performing Organization Address City/State/ZIP Code Phon [place] [address] POCT Glucose (07/06/2017 12:06 AM EST) athologist Signature POC Glucose 147 65 - 199 [facility] mg/dL [facility] Comment: Supplemental ranges: <140 mg/dL before meals <180 mg/dL all other times of the day Specimen Anatomical Collection Method Collection Time Receive d Time (Source) Location / / Volume Laterality Blood specimen 07/06/2017 12:06 7 (specimen) AM EST 12:06 AM EST Daphne Shahid MD POINT OF CARE TEST ORDERABLE S Performing Organization Address City/State/[place] [address] (ABNORMAL) POCT Glucose (07/05/2017 10:56 PM EST) athologist Signature POC Glucose 200 (H) 65 - 199 [facility] mg/dL [facility] Comment: Supplemental ranges: <140 mg/dL before meals <180 mg/dL all other times of the day Specimen Anatomical Collection Method Collection Time Receive d Time (Source) Location / / Volume Laterality Blood specimen 07/05/2017 10:56 7 (specimen) PM EST 10:56 PM EST Daphne Shahid MD POINT OF CARE TEST ORDERABLE S Performing Organization Address City/State/[place] [address] (ABNORMAL) POCT Glucose (07/05/2017 10:05 PM EST) athologist Signature POC Glucose 225 (H) 65 - 199 [facility] mg/dL [facility] Comment: Supplemental ranges: <140 mg/dL before meals <180 mg/dL all other times of the day Specimen Anatomical Collection Method Collection Time Receive d Time (Source) Location / / Volume Laterality Blood specimen 07/05/2017 10:05 7 (specimen) PM EST 10:05 PM EST Daphne Shahid MD POINT OF CARE TEST ORDERABLE S Performing Organization Address City/State/[place] [address] (ABNORMAL) POCT Glucose (07/05/2017 9:02 PM EST) P athologist Signature POC Glucose 301 (H) 65 - 199 [facility] mg/dL [facility] Comment: Supplemental ranges: <140 mg/dL before meals <180 mg/dL all other times of the day Specimen Anatomical Collection Method Collection Time Receive d Time (Source) Location / / Volume Laterality Blood specimen 07/05/2017 9:02 PM 017 9:02 (specimen) EST PM EST Daphne Shahid MD POINT OF CARE TEST ORDERABLE S Performing Organization Address City/State/ZIP Code Phon e Number [address] XR Chest PA or [...] 474 ms MUSE SYSTEM (Bezet) Calculated P [place] 50 degrees MUSE SYSTEM Calculated R [place] -28 degrees MUSE SYSTEM Calculated T [place] 90 degrees MUSE SYSTEM INTERPRETATION Sinus tachycardia [...] Automated (07/05/2017 8:20 PM EST) [facility] gist Method Time Signature Neutrophils % 88.4 % [facility] LABORATORY Neutr Abs (ANC) 9.08 (H) 1.70 - [facility] 6.10 [facility] x10(3)/[facility] L LABORATORY Lymphocytes % 7.0 % [facility] LABORATORY Lymphocytes Abs 0.7 (L) 0.9 - 3.2 [facility] x10(3)/[facility] LABORATORY Monocytes % 3.7 % [facility] LABORATORY Monocyte Abs 0.4 0.3 - 0.9 [facility] x10(3)/[facility] LABORATORY Eosinophils % 0.1 % [facility] LABORATORY Eosinophils Abs 0.0 0.0 - 0.4 [facility] x10(3)/[facility] LABORATORY Basophils % 0.2 % [facility] LABORATORY Basophils Abs 0.0 0.0 - 0.1 [facility] x10(3)/[facility] LABORATORY Immature Gran % 0.60 % [...] Gran Abs 0.06 (H) 0.00 - 0.04 x10(3)/[facility] LABORATORY Specimen Anatomical Collection Method Collection Time Receive d Time (Source) Location / / Volume Laterality Blood specimen 07/05/2017 8:20 PM 017 8:27 (specimen) EST PM EST Resulting Agency Comment Spec In Lab Daphne Shahid MD HEMATOLOGY ORDERABLES Performing Organization Address City/State/[place] [address] (ABNORMAL) Hemogram (07/05/2017 8:20 PM EST) Analysis Performed At Patho logist Time Signature WBC 10.3 (H) 4.0 - 9.5 [facility] x10(3)/[facility] LABORATORY RBC 4.64 4.58 - [facility] RYAN 5.54 [facility] x10(6)/[facility] LABORATORY Hemoglobin 14.1 13.7 - [facility] 16.5 gm/dL [facility] LABOR[facility]ORY Hematocrit 40.8 40.5 - [place] RYAN 48.5 % [facility] LABORATORY MCV 87.9 82.9 - [facility] 93.1 [facility] LABORATORY MCH 30.4 27.5 - [facility] 32.[address] [facility]ATORY MCHC 34.6 32.0 - [facility] 35.7 gm/dL [facility] Platelets 204 145 - 357 [facility] x10(3)/[facility] LABORATORY RDWSD 46.1 (H) 36.0 - [facility] 45.0 [facility] RDWCV 14.5 (H) 11.4 - [facility] 13.8 % [facility] LABORATORY MPV 9.7 7.6 - 12.9 [facility] LABORATORY nRBC % Auto 0.0 % [facility] LABORATORY nRBC Abs Auto 0.000 0.000 - [place] [facility] 0.000 [facility] x10(3)/[facility] LABORATORY Specimen Anatomical Collection Method Collection Time Receive d Time (Source) Location / / Volume Laterality Blood specimen 07/05/2017 8:20 PM 017 8:27 (specimen) EST PM EST Resulting Agency Comment Spec In Lab Daphne Shahid MD HEMATOLOGY ORDERABLES Performing Organization Address City/[facility]/ZIP Code Phon e Number [address] APTT (07/05/2017 8:20 PM EST) P athologist Signature PTT 32 25 - 35 sec [facility] LABORATORY Comment: The recommended therapeutic range for fu ll dose, unfractionated heparin at [facility] is 80 ? 114 seconds. [...] Organization Address City/[facility]/ZIP [facility] [place] [address] (ABNORMAL) Cardiac Enzymes (LEB/CGP) (07/05/2017 8:20 PM EST) P athologist Signature Troponin-T 2.11 (H) 0.00 [facility] ng/mL [facility] Comment: The 99th percentile for [...] additional sample may be indicated. Reference: Third [place] Definition of Myocardial Infarction. Journal of the [place] College of Cardiology 2012;60:1581-98 CK, Total 149 [...] [facility]/[place] [address] (ABNORMAL) Magnesium (07/05/2017 8:20 PM EST) athologist Signature Magnesium 0.68 (L) 0.69 - 1.07 [facility] mmol/L [facility] LABORATORY Specimen Anatomical Collection Method Collection Time Receive d Time (Source) Location / / Volume Laterality Blood specimen 07/05/2017 8:20 PM 017 8:27 (specimen) EST PM EST Resulting Agency Comment Spec In Lab Daphne Shahid MD CHEMISTRY ORDERABLES Performing Organization Address City/State/[place] [address] (ABNORMAL) Basic Metabolic Panel (non-fasting) (07/05/2017 8:20 PM EST) athologist Signature Glucose Lvl 321 (H) 65 - 199 [facility] mg/dL [facility] LABOR[facility]ORY Comment: Diabetes: >=200 mg/dL plus symp toms BUN 20 10 - 20 mg/dL [facility] LABORATORY Creatinine 1.12 0.80 - 1.50 mg/dL [facility] LABORATORY Sodium 139 135 - 145 [...] [facility] Estimated GFR >60 >=60 [facility] LABORATORY Comment: The reported eGFR should be multiplied b y 1.2 for patients. The MDRD is not an appropriate measure o f renal function for patients with body mass extremes or in patients with acute kidney failure. http://Mixpanel.Ubidyne/DHnkdep http://BackupAgent/DHMCnkf Specimen Anatomical Collection Method Collection Time Receive d Time (Source) Location / / Volume Laterality Blood specimen 07/05/2017 8:20 PM 017 8:27 (specimen) EST PM EST Resulting Agency Comment Spec In Lab Daphne Shahid MD CHEMISTRY ORDERABLES Performing Organization Address City/State/[place] [address] (ABNORMAL) POCT Glucose (07/05/2017 7:32 PM EST) athologist Signature POC Glucose 296 (H) 65 - 199 [facility] mg/dL [facility] Comment: Supplemental ranges: <140 mg/dL before meals <180 mg/dL all other times of the day Specimen Anatomical Collection Method Collection Time Receive d Time (Source) Location / / Volume Laterality Blood specimen 07/05/2017 7:32 PM 017 7:32 (specimen) EST PM EST Daphne Shahid MD POINT OF CARE TEST ORDERABLE S Performing Organization Address City/State/[place] [address] CARDIAC CATHETERIZATION (07/05/2017 6:47 PM EST) Specimen (Source) Anatomical Location Collection Method / Collectio n Time Received Time / Laterality Volume Narrative CARDIOMAC SYSTEM - 07/05/2017 7:27 PM ES T ?[facility] ? Cardiac Cathete rization/Intervention Report ? Patient Name: Natalya, Gregory ? Procedure Date: 07/05/2017 ? A #: [id number] ? Primary Physician: Clarisa, Jet T ? Case #: [id number] ? File Name: [id number] ? Catheterization Order Number: [id number] ? [facility] ? Final Report [place], [place] ? Patient Name: ? Gregory Natalya ?ID#: ?[id number] ? : ?1945 ? Procedure Date: ? Johnny 11, 20 17 ?Case #: ? [id number] ? Room: ? 6 ? Case Physician: ? Jet Mckenna MKd. ?Start: ?18:06 ? Admission: ??07/05/2017 ? Discharge: [...] presented with: non -STEMI (w/i 7 days). Tristanian ?[employer] angina c lass was IV. [...] site angio graphy and IABP insertion in animal laboratory helper. ? Jet Mckenna, M.D. ? Electronically Signed by: Jet Sampson DeVrizack s, M.D. ? Report Finalized: 07/05/2017 ??19:23 ? Report Last Ammended: 10/26/2017 ??10:29 ? Procedure Note Jet Mckenna MD - 10/26/2017Formatt ing of this note might be different from the original. [facility] Cardiac Catheterization/Intervention Re port Patient Name: Gregory Hoang Procedure Date: 07/05/2017 A #: [id number] Primary Physician: Jet Mckenna Case #: [id number] File Name: [id number] Catheterization Order Number: [id number] [facility] Final Report [place], [place] Patient Name: Gregory Hoang ID#: [id number] : 1945 Procedure Date: July 05, [...] presented with: non-STEMI ( w/i 7 days). [employer] [employer] angina class was IV. No [...] in the descending thoracic aorta under fluoroscopy guidrenato de leon. There was good diastolic augmentation [...] site angiograph y and IABP insertion in animal laboratory helper. Jet Mckenna M.D. Electronically Signed by: Jet [...] Mccollum ? (Age): 1945(72y) Med Rec#: ? [id number] ?Sex: ?M ? Site Loc: ? [facility] ?Ht / Wt: ??173(cm)/86(kg) Pt. Loc: ?[facility] ? BSA: ?2 Study Date: ?? 07/05/2017 ?Pt. Type: Inpatient Tape: ? Referring: Daphne Shahid ([id number]) Referring: MANDA ALCANTAR Reading: Blade Preston ([id number]) Beef Grinder: Dayami Paula BA, [facility] Diagnosis: *ICD-10-PCS Non-ST elevation (NSTEMI) [...] E-wave Vmax ?0.8 ?m/sec ? MV deceleration [id number] ?msec ? MV A-wave Vmax ?0.8 ?m/sec [...] ? Mid-Inferior ?Akinetic ? Mid-Inferoseptal ?Hypokinetic ? [place]-Septal ? Akinetic ? [place]-Anterior ? Hypokinetic ? [place]-Lateral ?Hypokinetic ? [place]-Inferior ? Akinetic ? [place]-Tip ?Akinetic ? This report has been electronically sign ed by: _ Blade Preston MD ? 07/06/2017 08 :53:15 Images [facility] and interpretation [facility] Procedure Note Blade Preston MD - 07/06/2017Formatt ing of this note might be different from the original. Procedure: Transthoracic Echocardiogram Patient: NATALYA MCBRIDE(Age): [birth year]72y) Med Rec#: [id number] Sex: M Site Loc: [facility] Ht / Wt: 173(cm)/86(kg) Pt. Loc: [facility] BSA: 2 Study Date: 07/05/2017 Pt. Type: Inpatie nt Tape: Referring: Daphne Shahid ([id number]) Referring: MANDA ALCANTAR Reading: Blade Preston ([id number]) Beef Grinder: Dayami Paula BA, [facility] Diagnosis: *ICD-10-PCS Non-ST elevation (NSTEMI) [...] MV E-wave Vmax 0.8 m/sec MV deceleration [id number] msec MV A-wave Vmax 0.8 m/sec MV [...] Hypokinetic Mid-Posterolateral Hypokinetic Mid-Inferior Akinetic Mid-Inferoseptal Hypokinetic [place]-Septal Akinetic [place]-Anterior Hypokinetic [place]-Lateral Hypokinetic [place]-Inferior Akinetic [place]-Tip Akinetic This report has been electronically sign ed by: _ Blade Preston MD 07/06/2017 08:53:15 Images reviewed and interpretation verif ied [facility] Cardiac Ultrasound Laboratory Daphne Shahid MD ECHO ORDERABLES Performing Organization Address City/State/ZIP Code Phon e Number [facility] Differential, Automated (07/05/2017 4:55 PM EST) P athologist Signature Neutrophils % 77.0 % [facility] LABORATORY Neutr Abs (ANC) 5.26 1.70 - [facility] 6.10 [facility] x10(3)/[facility] LABORATORY Lymphocytes % 13.3 % [facility] LABORATORY Lymphocytes Abs 0.9 0.9 - 3.2 [facility] x10(3)/[facility] LABORATORY Monocytes % 8.2 % [facility] LABORATORY Monocyte Abs 0.6 0.3 - 0.9 [facility] x10(3)/[facility] LABORATORY Eosinophils % 0.7 % [facility] LABORATORY Eosinophils Abs 0.0 0.0 - 0.4 [facility] x10(3)/[facility] LABORATORY Basophils % 0.4 % [facility] LABORATORY Basophils Abs 0.0 0.0 - 0.1 [facility] x10(3)/[facility] LABORATORY Immature [...] Melisa Gran Abs 0.03 0.00 - 0.04 x10(3)/[facility] MAR Y [facility] LABORATORY Specimen Anatomical Collection Method Collection Time Receive d Time (Source) Location / / Volume Laterality Blood specimen 07/05/2017 4:55 PM 017 5:24 (specimen) EST PM EST Resulting Agency Comment Spec In Lab Daphne Shahid MD HEMATOLOGY ORDERABLES Performing Organization Address City/State/[place] [address] (ABNORMAL) Hemogram (07/05/2017 4:55 PM EST) Analysis Performed At Patho logist Time Signature WBC 6.8 4.0 - 9.5 [facility] x10(3)/[facility] LABORATORY RBC 4.67 4.58 - [facility] 5.54 [facility] x10(6)/[facility] LABORATORY Hemoglobin 14.0 13.7 - [facility] 16.5 gm/dL [facility] Hematocrit 41.0 40.5 - [facility] 48.5 % [facility] MCV 87.8 82.9 - [facility] 93.1 [facility] LABORATORY MCH 30.0 27.5 - [facility] 32.[address] [facility] LABORATORY MCHC 34.1 32.0 - [facility] 35.7 gm/dL [facility]ORY Platelets 197 145 - 357 [facility] x10(3)/[facility] LABORATORY RDWSD 46.4 (H) 36.0 - [facility] 45.0 [facility] LABORATORY RDWCV 14.5 (H) 11.4 - [facility] 13.8 % [facility] LABORATORY MPV 9.7 7.6 - 12.9 [facility] LABORATORY nRBC % Auto 0.0 % [facility] LABORATORY nRBC Abs Auto 0.000 0.000 - [facility] 0.000 [facility] x10(3)/[facility] LABORATORY Specimen Anatomical Collection Method Collection Time Receive d Time (Source) Location / / Volume Laterality Blood specimen 07/05/2017 4:55 PM 017 5:24 (specimen) EST PM EST Resulting Agency Comment Spec In Lab Daphne Shahid MD HEMATOLOGY ORDERABLES Performing Organization Address City/[facility]/[place] [address] (ABNORMAL) Cardiac Enzymes (LEB/CGP) (07/05/2017 4:55 PM EST) athologist Signature Troponin-T 1.69 (H) 0.00 - [facility] 0.00 ng/mL [facility] LABOR[facility]ORY Comment: The 99th percentile for [...] additional sample may be indicated. Reference: Third [place] Definition of Myocardial Infarction. Journal of the [place] College [employer]iology 2012;60:1581-98 CK, Total 191 [...] [facility]/[place] [address] (ABNORMAL) pro-Brain Natriuretic Peptide (07/05/2017 4:55 PM EST) athologist Signature ProBNP 1,598 (H) <=125 [facility] pg/mL [facility] LABORATORY Specimen Anatomical Collection Method Collection Time Receive d Time (Source) Location / / Volume Laterality Blood specimen 07/05/2017 4:55 PM 017 5:24 (specimen) EST PM EST Resulting Agency Comment Spec In Lab Daphne Shahid MD CHEMISTRY ORDERABLES Performing Organization Address City/[facility]/ZIP Code Phon e Number [address] Magnesium (07/05/2017 4:55 PM EST) athologist [facility] Magnesium 0.78 0.69 - 1.07 [facility] mmol/L [facility] LABORATORY Specimen Anatomical Collection Method Collection Time Receive d Time (Source) Location / / Volume Laterality Blood specimen 07/05/2017 4:55 PM 017 5:24 (specimen) EST PM EST Resulting Agency Comment Spec In Lab Daphne Shahid MD CHEMISTRY ORDERABLES Performing Organization Address City/[facility]/ZIP Code Phon e Number [address] (ABNORMAL) Basic Metabolic Panel (non-fasting) (07/05/2017 4:55 PM EST) athologist [facility] Glucose Lvl 230 (H) 65 - 199 [facility] mg/dL [facility] LABORATORY Comment: Diabetes: >=200 mg/dL plus symp toms BUN 19 10 - 20 mg/dL [facility] LABORATORY Creatinine 1.04 0.80 - 1.50 mg/dL [facility] LABORATORY Sodium 142 135 - 145 [...] [facility] Estimated GFR >60 >=60 [facility] LABORATORY Comment: The reported eGFR should be multiplied b y 1.2 for patients. The MDRD is not an appropriate measure o f renal function for patients with body mass extremes or in patients with acute kidney failure. http://BackupAgent/DHnkdep http://BackupAgent/DHMCnkf Specimen Anatomical Collection Method Collection Time Receive d Time (Source) Location / / Volume Laterality Blood specimen 07/05/2017 4:55 PM 017 5:24 (specimen) EST PM EST Resulting Agency Comment Spec In Lab Daphne Shahid MD CHEMISTRY ORDERABLES Performing Organization Address City/[facility]/[place] [address] (ABNORMAL) APTT (07/05/2017 4:55 PM EST) P athologist Signature PTT 41 (H) 25 - 35 sec [facility] LABORATORY Comment: The recommended therapeutic range for fu ll dose, unfractionated heparin at [facility] is 80 ? 114 seconds. [...] [facility]/[place] [address] (ABNORMAL) POCT Glucose (07/05/2017 4:53 PM EST) P athologist Signature POC Glucose 208 (H) 65 - 199 [facility] mg/dL [facility] LAB[facility]ORY Comment: Supplemental ranges: <140 mg/dL before meals <180 mg/dL all other times of the day Specimen Anatomical Collection Method Collection Time Receive d Time (Source) Location / / Volume Laterality Blood specimen 07/05/2017 4:53 PM 017 4:53 (specimen) EST PM EST Daphne Shahid MD POINT OF CARE TEST ORDERABLE S Performing Organization Address City/State/[place] [address] EKG 12 Lead (07/05/2017 4:32 PM EST) Component Value Ref Range Test Analysis Performed Pathologis t Method Time At Signature Ventricular rate 97 BPM MUSE SYSTEM Atrial Rate 97 BPM MUSE SYSTEM P-R Interval 148 ms MUSE SYSTEM QRS Duration 96 ms MUSE SYSTEM Q-T Interval 364 ms MUSE SYSTEM QTC Calculated 462 ms MUSE SYSTEM (Bezet) Calculated P Melrose 48 degrees MUSE SYSTEM Calculated R Melrose -33 degrees MUSE SYSTEM Calculated T Melrose 98 degrees MUSE SYSTEM INTERPRETATION Normal sinus [...] post-op day 1 in the AM Give DE if unable to take PO, Routine Given [...] post-op day 1 in the AM Give DE if unable to take PO, Routine atorvastatin [...] insulin lispro (humaLOG) VIAL injection 0-12 Units(Alix fransiscod Group 2) 0000 (Not Given - Provider: [...] not met) 0000 (Not Given - Provider: eDnice contreras RN - Reason: Order parameters not [...] mg 2000 (Given - Provider: Denice Jacobson, RN) 0921 (Given - Provider: Myrna triplett [...] RN) 0841 (Given - Provider: Em Jones, VAMSI) 0922 (Given - Provider: Myrna Young, RN) 20 mEq, Oral, DAILY, First dose on Wed09/12/16 at 1015, Until Discontinued, Routine potassium chloride (K-DUR/KLOR-CON) extended release tablet 40 mEq (COMPLETED) 08 (Given - Provider: Em Jones, VAMSI) 40 [...] , VAMSI)1330 (Not Given - Provider: Em Jones, VAMSI - Reason: Contraindicated)2003 (Given - Provider: Denice Jacobson RN) 0532 (Given - Provider: Denice Jacobson, VAMSI)1330 (Not Given - Provider: Myrna Young, VAMSI - Reason: Patient/family refused) 5 mL, Intravenous, EVERY 8 HOURS, First dose on Wed07/11/17 at 1330, Until Discontinued, Routine 2200 (Given - Provider: Ale Rangel, RN) 0 (No t Given - Provider: [...] VAMSI) 2.5 mg, Oral, ONCE, 1 dose, On [...] Luther RN)1200 (Rate/Dose Change - Provider: More Luther, VAMSI)195 (Rate/Dose Change - Provider: Elba Valverde, VAMSI [...] post-op day 1 in the AM Give DE if unable to take PO
Routine Group [...]
Routine documented in this encounter Care Teams Tanbark Peeler Relationship Specialty Start Date End Date Lovely Vicente MD PCP - General 04/16/[address] [place] [address] documented as of this encounter
--- OUTSIDE RECORDS SUMMARY | 2022-02-25 08:20 | XMS_ITS | Encounter Summary ---
:1945 Author Organization [facility] [place] [address] Care Team Providers Name Role Phone Angela Holliday APRN Primary Care Provider Encounter Details Date Type Department Care Team Description 04/30/2014 Orders Only Endocrinology at [facility] Albertina Palmer, Thyroid cancer [facility] Jorge Boyer MD (Primary Dx) [place] [address] [facility] [phone] CENTER ENDOCRINOLOGY DEPT [place], [place] [address] Social History Tobacco Use Types [...] MD [facility] ER CARDIOLOGY [place], [place] [address] (Wo rk) 06/10/2022 Office Visit Dermatology Laura Scherer MD [facility] [address] [place], [place] [address] (Wo rk) documented as of this encounter Visit Diagnoses Diagnosis Thyroid cancer - Primary Malignant neoplasm of thyroid gland documented in this encounter Care Teams Fine Arts Packer Relationship Specialty Start Date End Date Angela Holliday APRN PCP - General 01/25/13 04/15/[address] [place] [address] documented as of this encounter
--- OUTSIDE RECORDS SUMMARY | 2022-02-25 08:20 | XMS_ITS | Encounter Summary ---
:1945 Author Organization [facility] [place] [place] [address] Care Team Providers Name Role Phone Lovely Vicente MD Primary Care Provider Reason for Visit Reason Comments Skin Check Encounter Details Date Type Department Care Team Description 06/05/2016 Office Visit Dermatology at [facility] ist[facility] of melanoma; Abdelrahman HOOPER MD Seborrheic keratosis; [address] [facility] [place] (actinic keratosis); [place] [address] Multiple nevi; [phone] [facility] [address] [place], [place] [address] Social History Tobacco Use Types Packs/Day Years Used Date Former Smoker Smokeless Tobacco: Never Used Alcohol Use Standard Drinks/Week Comments No 0 (1 standard drink = 0.6 oz pure alcoho l) Sex Assigned at Date Recorded Not on file documented as of this encounter Progress Notes Ginny Christiasnen LPN - 06/05/2016 10:15 AM EST DERMATOLOGY ESTABLISHED PATIENT CLINIC NOTE Date of service: 06/05/2016 Don Fatima : 1945 Provider: Rigoberto Garcia MD PROBLEM: skin cancer screening SKIN HISTORY: Melanoma - 0.98 mm with a Ede Level IV, high on his mid back in 2005 ?? Psoriasis HPI Don aFtima is a 71 y.o. year old male. [...] Diagnostic, Drum (ACCU-CHEK COMPACT TEST) Strip by [facility].(Non- Drug; Combo Route) route 2 times daily. [...] 03/26/2022 Office Visit Cardiology Vitaliy Nobles MD [facility] ER [address] [place], [place] [address] (Wo rk) 06/10/2022 Office Visit Dermatology Laura Scherer [facility] ER DR [address] [facility] [place] [place] [address] (Wo rk) documented as of this encounter Visit Diagnoses Diagnosis History of melanoma Personal history of malignant melanoma o f skin Seborrheic keratosis Other seborrheic keratosis [place] (actinic keratosis) Actinic keratosis Multiple nevi Benign neoplasm of skin, site unspecifie d Scar Scar condition and fibrosis of skin documented in this encounter Care Teams Sample Supervisor Relationship Specialty Start Date End Date Lovely Vicente MD PCP - General 04/16/15 [facility] [address] [place] [address] documented as of this encounter
--- OUTSIDE RECORDS SUMMARY | 2022-02-25 08:20 | XMS_ITS | Encounter Summary ---
:1945 Author Organization [facility] [place] [address] Care Team Providers Name Role Phone Lovely Vicente MD Primary Care Provider Encounter Details Date Type Department Care Team Description 07/05/2017 Telephone Cardiology Kim Galindo MD [facility] [place] [address] CARDIOLOGY DEPT [phone] [place], [place] [address] (Wo rk) Social History [...] 1:54pm Referring Provider: Ivania CROWELL) Patient Location: [facility] Presenting Symptoms per OSH: 72 year old [...] infarct and elevated troponin, transport patient to [facility] for cath this afternoon and arrhythmia monitoring. Kim Galindo MD Algorithm Developer documented in this encounter Plan of Treatment Upcoming Encounters Date Type Specialty Care Team Description 03/26/2022 Office Visit Cardiology Vitaliy Nobles MD [facility] [address] [place], [place] [address] (Wo rk) 06/10/2022 Office Visit Dermatology Laura Scherer MD [facility] [address] [place], [place] [address] (Wo rk) documented as of this encounter Visit Diagnoses Not on filedocumented in this encounter Care Teams Salt Cutter Relationship Specialty Start Date End Date Lovely Vicente MD PCP - General 04/16/[address] [place] [address] documented as of this encounter
--- OUTSIDE RECORDS SUMMARY | 2022-02-25 08:20 | XMS_ITS | Encounter Summary ---
:1945 Author Organization [facility] [place] [address] Care Team Providers Name Role Phone Lovely Vicente MD Primary Care Provider Reason for Visit Reason Comments Thyroid Cancer Encounter Details Date Type Department Care Team Description 06/05/2015 Office Visit Endocrinology at [facility] Albertina Prescott, History of papillary [facility] MD Luz adenocarcinoma of [facility] thyroid (Primary Dx) [place] [address] CENTER [phone] [place] [address] Social History Tobacco Use Types Packs/Day Years [...] the thyroid gland were obtained using a Razer ultrasound machine. All measurements are given as AP x Transverse x Longitudinal Right Lobe: Absent Left Lobe: Absent Isthmus: Absent Central/Lateral neck: no morphologically abnormal lymph nodes. Impression: No sonographic evidence of recurrence. LUZ PRESCOTT MD Superintendent Terminalheel lining paster Section of Endocrinology [facility] Luz Prescott MD - 06/05/2015 8:21 AM [...] by [facility]Non-Drug; Combo Route) route 2 [...] --f/u in 1 year LUZ PRESCOTT MD Superintendent Terminalheel lining paster Section of Endocrinology [facility] documented in this encounter Miscellaneous Notes Addendum [...] Nobles MD [facility] [address] [place], [place] [address] (Wo rk) 06/10/2022 Office Visit Dermatology Laura Scherer MD [facility] [address] [place], [place] [address] (Wo rk) documented as of [...] athologist Signature Thyroglobulin 0.6 <=54.9 CERNER ng/mL [facility] [...] DALLAS et al. J Clin Endo Metab 1999;84:1537-0201). 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
--- OUTSIDE RECORDS SUMMARY | 2022-02-25 08:20 | XMS_ITS | Encounter Summary ---
:1945 Author Organization [facility] [place] [address] Care Team Providers Name Role Phone MiyaAngela STACIE Primary Care Provider Reason for Visit Reason Onset Date Comments Advice Only 03/31/2013 Encounter Details Date Type Department Care Team Description 03/31/2013 Telephone Urology at [facility] Daniele Trejo III, MD Advice Only [facility] [place] [address] [place] [id number] [phone] (Wo rk) Social History Tobacco Use Types [...] [facility] ER CARDIOLOGY [place], [place] [address] (Wo rk) 06/10/2022 Office Visit Dermatology Laura Scherer MD [facility] ER DR [address] [place], [place] [address] (Wo rk) documented as of this encounter Visit Diagnoses Not on filedocumented in this encounter Care Teams Paint Dipper Relationship Specialty Start Date End Date Angela Holliday APRN PCP - General 01/25/13 04/15/[address] [place] [address] documented as of this encounter
--- OUTSIDE RECORDS SUMMARY | 2022-02-25 08:20 | XMS_ITS | Encounter Summary ---
:1945 Author Organization [facility] [place] [address] Care Team Providers Name Role Phone Angela Holliday APRN Primary Care Provider Encounter Details Date Type Department Care Team Description 03/30/2013 Telephone General Surgery at [facility] Cliff Nevarez, [place] [address] Social History Tobacco Use Types Packs/Day [...] Vitaliy Nobles MD [facility] [address] [place], [place] [address] (Wo rk) 06/10/2022 Office Visit Dermatology Laura Scherer MD [facility] [address] [place], [place] [address] (Wo rk) documented as of this encounter Visit Diagnoses Not on filedocumented in this encounter Care Teams Cert Occupational Therapy Asst Relationship Specialty Start Date End Date Angela Holliday APRN PCP - General 01/25/13 04/15/[address] [place] [address] documented as of this encounter
--- OUTSIDE RECORDS SUMMARY | 2022-02-25 08:20 | XMS_ITS | Encounter Summary ---
:1945 Author Organization [facility] [place] [address] Care Team Providers Name Role Phone Lovely Vicente MD Primary Care Provider Reason for Visit Reason Onset Date Comments Medication Refill 06/19/2016 Encounter Details Date Type Department Care Team Description 06/19/2016 Refill Endocrinology at [facility] Luz Stallings MD [facility] [address] ENDOCRINOLOGY DEPT [phone] [place], [place] [address] (Wo rk) Social History Tobacco [...] MD [facility] [address] [place], [place] [address] (Wo rk) 06/10/2022 Office Visit Dermatology Laura Scherer MD [facility] [address] [place], [place] [address] (Wo rk) documented as of this encounter Visit Diagnoses Not on filedocumented in this encounter Care Teams Institution Librarian Relationship Specialty Start Date End Date Lovely Vicente MD PCP - General 04/16/[address] [place] [address] documented as of this encounter
--- OUTSIDE RECORDS SUMMARY | 2022-02-25 08:20 | XMS_ITS | Encounter Summary ---
:1945 Author Organization [facility] [place] [address] Care Team Providers Name Role Phone Lovely Vicente MD Primary Care Provider Encounter Details Date Type Department Care Team Description 09/03/2016 Office Visit Endocrinology at [facility] Maria Ines Stallings of [facility] [place] [address] [place] [address] ENDOCRINOLOGY DEPT [place], [place] [address] Social History Tobacco Use Types [...] to his magnesium pill. LUZ PRESCOTT MD Film Criticproduct advisor Section of Endocrinology [facility] [place] Luz Prescott MD - [...] sonographic evidence of recurrence. LUZ PRESCOTT MD Film Criticproduct advisor Section of Endocrinology [facility] [place] documented in this encounter Plan of Treatment Upcoming Encounters Date Type Specialty Care Team Description 03/26/2022 Office Visit Cardiology Vitaliy Nobles MD [facility] CARDIOLOGY [place], [place] 0[address] (Wo rk) 06/10/2022 Office Visit Dermatology Laura Scherer MD [facility] DR [address]-DERMAT OLOGY [place], [place] [address] (Wo rk) documented as of this encounter Results Thyroglobulin (09/07/2017 2:41 PM EST) athologist Signature Thyroglobulin 1.4 <=54.9 [facility] ng/mL [facility] Comment: Thyroglobulin levels may [...] Prescott MD CHEMISTRY ORDERABLES Performing Organization Address City/[facility]/ZIP Code Phon e Number [address] TSH (09/07/2017 2:41 PM EST) P athologist Signature TSH 3.93 0.27 - 4.20 KATALINA DAVIS mlU/ML [facility] Specimen Anatomical Collection Method Collection Time Receive d Time (Source) Location / / Volume Laterality Blood specimen 09/07/2017 2:41 PM 018 2:46 (specimen) EST PM EST Resulting Agency Comment Spec In Lab Luz Prescott MD CHEMISTRY ORDERABLES Performing Organization Address [facility] Phon e Number [address] Thyroglobulin (09/03/2016 11:07 AM EST) athologist Signature Thyroglobulin <0.4 <=54.9 KATALINA DAVIS ng/mL [facility] Comment: Interpret with caution. Tg [...] BR et al. J Clin Endo Metab 1999;84:2716-5021). Assay performed using the DPC Immulite T [...] Organization Address City/State/[place] [address] TSH (09/03/2016 11:07 AM EST) P athologist Signature TSH 3.01 0.27 - 4.20 [facility] mcIU/mL [facility] Specimen Anatomical Collection Method Collection Time Receive d Time (Source) Location / / Volume Laterality Blood specimen 09/03/2016 11:07 7 (specimen) AM EST 11:22 AM EST Resulting Agency Comment Spec In Lab Luz Prescott MD CHEMISTRY ORDERABLES Performing Organization Address City/[facility]/[place] [address] documented in this encounter Visit Diagnoses Diagnosis Hx of papillary thyroid carcinoma Personal history of malignant neoplasm o f thyroid documented in this encounter Care Teams Charcoal Burner Beehive Kiln Relationship Specialty Start Date End Date Lovely Vicente MD PCP - General 04/16/[address] [place] [address] documented as of this encounter
--- OUTSIDE RECORDS SUMMARY | 2022-02-25 08:20 | XMS_ITS | Encounter Summary ---
:1945 Author Organization [facility] [place] [address] Care Team Providers Name Role Phone MiyaAngela STACIE Primary Care Provider Reason for Visit Reason Comments Post Op voiding trial Encounter Details Date Type Department Care Team Description 04/05/2013 Office Visit Urology at [facility] Darryl Egan, UTI ([facility] MD tract infection) [facility] (Primary Dx) [place] [address] UROLOGY DEPT [phone] [place], [place] [address] Social History Tobacco Use Types [...] Nobles MD [facility] CARDIOLOGY [place], [place] [address] (Wo rk) 06/10/2022 Office Visit Dermatology Laura Scherer MD [facility] DR TEJA GR-DERMAT OGY [place], [place] [address] (Wo rk) documented as [...] At [facility] Range Method Time Signature Urine Culture CERNER ? Patient Name: GREGORY HOANG ? Ordered By: DARRYL EGAN [facility] ? MR#: [id number] ?LOC: ??5B ? /Sex: ??1945 (68 years), [...] S ? Tobramycin ? S ? Patient: GREGORY HOANG ? MR#: [id number] ? FOOTNOTES ? (1) ? This organism [...] Organization Address City/State/[place] [address] [facility] documented in this encounter Visit Diagnoses Diagnosis UTI (lower urinary tract infection) - Pr imary Urinary tract infection, site not specif ied documented in this encounter Care Teams Pipe Stress Engineer Relationship Specialty Start Date End Date Angela Holliday APRN PCP - General 01/25/13 04/15/[address] [place] [address] documented as of this encounter
--- OUTSIDE RECORDS SUMMARY | 2022-02-25 08:20 | XMS_ITS | Encounter Summary ---
:1945 Author Organization [facility] [place] [address] Care Team Providers Name Role Phone Angela Holliday APRN Primary Care Provider Reason for Visit Reason Comments Benign Prostatic Hypertrophy Encounter Details Date Type Department Care Team Description 11/28/2013 [place] [facility] Blade Smith, Urinary retention (Primary D x); [facility] BPH (benign prostatic hyperplasia) [place] [address] UROLOGY DEPT [place], [place] [address] (Wo rk) Social History Tobacco [...] Vitaliy Nobles MD [facility] CARDIOLOGY [place], [place] 0[address] (Wo rk) 06/10/2022 Office Visit Dermatology Laura Scherer MD [facility] DR TEJA GR-DERMAT [facility] [place], [place] 0[address] (Wo rk) documented as [...] Address City/State/ZIP Code [place] [address] [facility] documented in this encounter Visit Diagnoses Diagnosis Urinary retention - Primary Retention of urine, unspecified BPH (benign prostatic hyperplasia) Unspecified hyperplasia of prostate with out urinary obstruction and other lower urinary tract symptoms (LUTS) documented in this encounter Care Teams Metal Worker Relationship Specialty Start Date End Date Angela Holliday APRN PCP - General 01/25/13 04/15/[address] [place] [address] documented as of this encounter
--- OUTSIDE RECORDS SUMMARY | 2022-02-25 08:20 | XMS_ITS | Encounter Summary ---
:1945 Author Organization [facility] [place] [address] Care Team Providers Name Role Phone Lovely Vicente MD Primary Care Provider Reason for Visit Reason Onset Date Comments Pre Procedure Call 12/02/2016 Encounter Details Date Type Department Care Team Description 12/02/[address] [facility] Mira James LPN Pre Procedure Call [address] [place] [address] Social History Tobacco Use Types Packs/Day [...] Nobles MD [facility] [address] [place], [place] [address] (Wo rk) 06/10/2022 Office Visit Dermatology Laura Scherer MD [facility] DR LEZAMA RD-DERMAT [facility] [place] [address] (Wo rk) documented as of this encounter Visit Diagnoses Not on filedocumented in this encounter Care Teams Bobbin Presser Relationship Specialty Start Date End Date Lovely Vicente MD PCP - General 04/16/[address] [place] [address] documented as of this encounter
--- OUTSIDE RECORDS SUMMARY | 2022-02-25 08:20 | XMS_ITS | Encounter Summary ---
:1945 Author Organization [facility] [place] [address] Care Team Providers Name Role Phone MiyaAngela STACIE Primary Care Provider Encounter Details Date Type Department Care Team Description 04/26/2014 Office Visit Endocrinology at [facility] Albertina Palmer, Papillary thyroid [facility] [place] [address] CENTER [phone] ENDOCRINOLOGY DEPT [place] [address] Social History Tobacco Use Types Packs/Day Years [...] on [place]. Rosalind Palmer Endocrine Staff Physician [facility] Rosalind Palmer MD - 04/26/2014 [...] one yr Rosalind Palmer Endocrine Staff Physician [facility] documented in this encounter Plan of Treatment Upcoming Encounters Date Type Specialty Care Team Description 03/26/2022 Office Visit Cardiology Vitaliy Nobles MD [facility] DR [address] [place], [place] [address] (Wo rk) 06/10/2022 Office Visit Dermatology Laura Scherer MD [facility] DR TE[address] GR-DERMAT OLOGY [place], [place] [address] (Wo rk) documented as of [...] encounter Results Thyroglobulin (04/26/2014 9:07 AM EDT) P athologist Signature Thyroglobulin <0.4 <=54.9 C[facility]ER ng/mL [facility] Comment: Interpret with caution. Tg levels may [...] BR et al. J Clin Endo Metab 1999;84:6812-5003). Assay performed using the DPC Immulite T [...] Organization Address City/State/[place] [address] CERNER [facility]NIUM (ABNORMAL) TSH [...] Organization Address City/State/[place] [address] [facility] documented in this encounter Visit Diagnoses Diagnosis Papillary thyroid carcinoma Malignant neoplasm of thyroid gland documented in this encounter Care Teams Public Safety Telecommunicator Relationship Specialty Start Date End Date Angela Holliday APRN PCP - General 01/25/13 04/15/[address] [place] [address] documented as of this encounter
--- OUTSIDE RECORDS SUMMARY | 2022-02-25 08:20 | XMS_ITS | Encounter Summary ---
:1945 [place] [address] Care Team Providers Name Role Phone Lovely Vicente MD Primary Care Provider Reason for Visit Reason Onset Date Comments Other 12/09/2016 RESULTS Encounter Details Date Type Department Care Team Description 12/09/2016 Telephone Dermatology at [facility] Halima Cadet MD Other (RESULTS) [address] [facility] [place] [address] [facility] [phone] [place], [place] [address] (Wo rk) Social History Tobacco [...] EDT Spoke with patient's , Kisha (personal safety representative). I advised her Don's pathology results [...] back. She can be reached back at [phone] documented in this encounter Plan of Treatment Upcoming Encounters Date Type Specialty Care Team Description 03/26/2022 Office Visit Cardiology Vitaliy Nobles MD [facility] DR [address] [place], [place] [address] (Wo rk) 06/10/2022 Office Visit Dermatology Laura Scherer MD [facility] DR [address]-[facility] [place] [address] (Wo rk) documented as of this encounter Visit Diagnoses Not on filedocumented in this encounter Care Teams Manager Of Case Relationship Specialty Start Date End Date Lovely Vicente MD PCP - General 04/16/[address] [place] [address] documented as of this encounter
--- OUTSIDE RECORDS SUMMARY | 2022-02-25 08:20 | XMS_ITS | Encounter Summary ---
:1945 Author Organization [facility] [place] [address] Care Team Providers Name Role Phone Lovely Vicente MD Primary Care Provider Reason for Visit Reason Comments Medication Refill Encounter Details Date Type Department Care Team Description 05/10/2015 Refill Endocrinology at [facility] Rosalind Covarrubias, [facility] [place] [address] [facility] [phone] ENDOCRINOLOGY [place], [place] 0[address] (Wo rk) Social History Tobacco [...] [facility] ER DR TADEO [place], [place] [address] (Wo rk) 06/10/2022 Office Visit Dermatology Laura Scherer MD [facility] ER DR TEJA GR-DERMAT [place], [place] 0[address] (Wo rk) documented as of this encounter Visit Diagnoses Not on filedocumented in this encounter Care Teams Prop Drawer Relationship Specialty Start Date End Date Lovely Vicente MD PCP - General 04/16/[address] [place] [address] documented as of this encounter
--- OUTSIDE RECORDS SUMMARY | 2022-02-25 08:20 | XMS_ITS | Encounter Summary ---
:1945 Author Organization [facility] [place] [address] Care Team Providers Name Role Phone Lovely Vicente MD Primary Care Provider Reason for Visit Reason Onset Date Comments Referral 10/30/2015 Urgent referral for mac on [address] Encounter Details Date Type Department Care Team Description 10/30/2015 Telephone Ophthalmology at [facility] C Jayson Ruiz Referral (Urgent [facility] MD Grabiel referral for mac on [facility] [address] [place]) [place] [address] OPHTHALMOLOGY DEPT. [phone] [place], [place] [address] (Wo rk) Social History Tobacco [...] for routine CEE and found mac on RD , patient asymptomatic. Paged Dr. Ruiz. Due [...] Vitaliy Nobles MD [facility] [address] [place], [place] [address] (Wo rk) 06/10/2022 Office Visit Dermatology Laura Scherer MD [facility] DR TEJA GR-DERMAT [facility] [place], [place] [address] (Wo rk) documented as of this encounter Visit Diagnoses Not on filedocumented in this encounter Care Teams Manager Validation Relationship Specialty Start Date End Date Lovely Vicente MD PCP - General 04/16/15 [facility] [address] [place] [address] documented as of this encounter
--- OUTSIDE RECORDS SUMMARY | 2022-02-25 08:20 | XMS_ITS | Encounter Summary ---
:1945 Author Organization [facility] [place] [address] Care Team Providers Name Role Phone Lovely Vicente MD Primary Care Provider Encounter Details Date Type Department Care Team Description 09/03/2016 Laboratory Appointment Lab at [facility] Hx of papillary [facility] [place] [phone] Social History Tobacco Use Types Packs/Day Years [...] Nobles MD [facility] ER DR TADEO [place], [place] [address] (Wo rk) 06/10/2022 Office Visit Dermatology Laura Scherer MD [facility] ER DR TEJA GR-DERMAT [place], [place] [address] (Wo rk) documented as of [...] EST) P athologist Signature Thyroglobulin <0.4 <=54.9 [facility] ng/mL [facility] Comment: Interpret with caution. Tg [...] BR et al. J Clin Endo Metab 1999;84:8703-9852). Assay performed using the DPC Immulite T [...] Organization Address City/State/[place] [address] TSH (09/03/2016 11:07 AM EST) P athologist Signature TSH 3.01 0.27 - 4.20 KATALINA DAVIS mcIU/mL [facility] Specimen Anatomical Collection Method Collection Time Receive d Time (Source) Location / / Volume Laterality Blood specimen 09/03/2016 11:07 7 (specimen) AM EST 11:22 AM EST Resulting Agency Comment Spec In Lab Luz Prescott MD CHEMISTRY ORDERABLES Performing Organization Address City/State/[place] [address] documented in this encounter Visit Diagnoses Diagnosis Hx of papillary thyroid carcinoma Personal history of malignant neoplasm o f thyroid documented in this encounter Care Teams Measurement And Verification Engineer Relationship Specialty Start Date End Date Lovely Vicente MD PCP - General 04/16/[address] [place] [address] documented as of this encounter
--- OUTSIDE RECORDS SUMMARY | 2022-02-25 08:20 | XMS_ITS | Encounter Summary ---
:1945 Author Organization [facility] [place] [address] Care Team Providers Name Role Phone Som Holliday APRN Primary Care Provider Encounter Details Date Type Department Care Team Description 04/11/2014 Procedure visit Gastroenterology [place] [facility] Esophageal reflux [facility] Luz Winchester RN (Primary Dx) [place] [address] Social History Tobacco Use Types Packs/Day Years Used Date Former Smoker Alcohol Use Standard Drinks/Week Comments No 0 (1 standard drink = 0.6 oz pure alcoho l) Sex Assigned at Date Recorded Not on file documented as of this encounter Progress Notes Adalid Can MD - 04/13/2014 3:43 PM EDT ESOPHAGEAL MANOMETRY Don Fatima Male, 69 yrs, 1945 PCP: SOM HOLLIDAY DAIRY STORE MANAGER: NONE STUDY DATE: 04/11/14 PROVIDER: Adalid [place], [place] ([id number]) INDICATION Reflux; preoperative evaluation. METHODS Stationary esophageal manometry was performed with the [employer] esophageal motility system utilizing the Polygram software [...] of the esophagus. Adalid Can, PhD, MD bung dropper, [facility] [employer] Section of Gastroenterology and Hepatology [facility] [place] [address] V: [phone] F: [phone] [facility]/gabriela CC/EC: PCP - staff msg copy 04/13/14 Henrique Taylor MD - fax copy 04/13/14 Luz Keller RN - 04/11/2014 8:14 AM EDT Esophageal manometry performed without difficulty and Was well tolerated. documented in this encounter Plan of Treatment Upcoming Encounters Date Type Specialty Care Team Description 03/26/2022 Office Visit Cardiology Vitaliy Nobles MD [facility] ER DR TADEO [place], [place] [address] (Wo rk) 06/10/2022 Office Visit Dermatology Laura Scherer MD [facility] DR TEJA GR-DERMAT [facility] [place] [address] (Wo rk) documented as of this encounter Visit Diagnoses Diagnosis Esophageal reflux - Primary documented in this encounter Care Teams Mortgage Branch Manager Relationship Specialty Start Date End Date Som Holliday APRN PCP - General 01/25/13 04/15/[address] [place] [address] documented as of this encounter
--- OUTSIDE RECORDS SUMMARY | 2022-02-25 08:20 | XMS_ITS | Encounter Summary ---
:1945 Author Organization [facility] Address [facility] [place] [address] Care Team Providers Name Role Phone Lovely Vicente MD Primary Care Provider Reason for Visit Reason Comments Skin Check Encounter Details Date Type Department Care Team Description 11/05/2015 Office Visit Dermatology at Rig[facility]to Forman benign nevi; Abdelrahman HOOPER MD Lentigines; [address] [facility] History of melanoma; [place] [address] Skin exam for malignant neoplasm [phone] [facility] [place], [place] [address] Social History Tobacco Use Types [...] Diagnostic, Drum (ACCU-CHEK COMPACT TEST) Strip by [facility]Non- Drug; Combo Route) route 2 times daily. [...] encounter. Rigoberto Garcia MD Section of Dermatology [facility] documented in this encounter Plan of Treatment Upcoming Encounters Date Type Specialty Care Team Description 03/26/2022 Office Visit Cardiology Vitaliy Nobles MD [facility] DR T[address] [place], [place] [address] (Wo rk) 06/10/2022 Office Visit Dermatology Laura Scherer MD [facility] DR [address]-DERMAT [place], [place] [address] (Wo rk) documented as of this encounter Visit Diagnoses Diagnosis Multiple benign nevi Benign neoplasm of skin, site unspecifie d Lentigines Other dyschromia History of melanoma Personal history of malignant melanoma o f skin Skin exam for malignant neoplasm Screening for malignant neoplasm of the skin documented in this encounter Care Teams Hip Hop Artist Relationship Specialty Start Date End Date Lovely Vicente MD PCP - General 04/16/[address] [place] [address] [address] [place] [address] documented as of this encounter
--- OUTSIDE RECORDS SUMMARY | 2022-02-25 08:20 | XMS_ITS | Encounter Summary ---
:1945 Author Organization [facility] [place] [address] Care Team Providers Name Role Phone MiyaLokeshAngela STACIE Primary Care Provider Encounter Details Date Type Department Care Team Description 04/04/2013 Orders Only General Surgery at Manny Mcknight thyroid [facility] MD Eliseo carcinoma (Primary Dx) Count includes the [facility] [place] [address] GENERAL SURGERY [phone] [place], [place] [address] Social History Tobacco Use Types [...] MD [facility] CARDIOLOGY [place], [place] [address] (Wo rk) 06/10/2022 Office Visit Dermatology Laura Scherer MD [facility] [address] TEJA GR-DERMAT OLOGY [place], [place] [address] (Wo rk) documented as of this encounter Visit Diagnoses Diagnosis Papillary thyroid carcinoma - Primary Malignant neoplasm of thyroid gland documented in this encounter Care Teams Emt B Relationship Specialty Start Date End Date Angela Holliday APRN PCP - General 01/25/13 04/15/[address] [place] [address] documented as of this encounter
--- OUTSIDE RECORDS SUMMARY | 2022-02-25 08:20 | XMS_ITS | Encounter Summary ---
:1945 Author Organization [facility] [place] [address] Care Team Providers Name Role Phone Angela Sotelo APRN Primary Care Provider Encounter Details Date Type Department Care Team Description 01/16/2014 Surgery Gastroenterology at [facility] Nohemi Jaimes, COLONOSCOPY, [facility] Jorge mcnamara MD POLYPECTOM[place], [place] [address] [facility] LESION BY SNARE ([facility] [phone] DR Cintron) GASTROENTEROLOGY DEPT. [place], [place] [address] Social History Tobacco Use Types [...] you need to be checked. Wednesday-Wednesday Clinic [phone] 8a-5p Same Day Endo [phone] 7a-8p Otherwise contact [phone] and ask to speak to the funding coordinator area development consultant Follow up care is a shelton [...] Jaimes MD - 01/16/2014 9:49 AM EDT [facility] Operative Note Patient Name: Gregory Fatima : [id number] MR#: [id number] Case Date: 01/16/2014 Surgeon: Surgeon(s) and Role: * Nohemi Jaimes MD - Primary Preoperative diagnosis: 5 yr surv. Full procedure note is documented under the Procedure section of eDH. documented in this encounter Plan of Treatment Upcoming Encounters Date Type Specialty Care Team Description 03/26/2022 Office Visit Cardiology Vitaliy Nobles MD [facility] ER DR TADEO [place], [place] [address] (Wo rk) 06/10/2022 Office Visit Dermatology Laura Scherer MD [facility] ER DR TEJA GR-DERMAT OLOGY [place], [place] [address] (Wo rk) documented as of [...] Surgical Pathology Report (01/16/2014 9:53 AM EDT) [facility] Method Time Signature Surgical CERNER Pathology ? [facility] Report ? Provider: ?? SHREE, NOHEMI Gonzalez ?Pt. Name: ?? SURINDER ALEGRE, GREGORY Mccollum ? Acc #: ?[id number] ?Pt. MRN: ?[id number] ? Col Date: ?? 4 ? /Sex: [...] Organization Address City/State/ZIP Code Phon e Number [address] CERNER MILLENNIUM Specimen to [...] MD PATHOLOGY/CYTOLOGY ORDERABLE S Performing Organization Address City/[facility]/[place] [address] CERNER MILLENNIUM Specimen to Pathology (surgical or derm) (01/16/2014 9:53 AM EDT) Specimen Anatomical Collection Method Collection Time Receive d Time (Source) Location / / Volume Laterality AP Specimen 01/16/2014 9:53 AM 201 4 9:53 EDT AM EDT Narrative CERKERI MILLENNIUM - 01/16/2014 9:53 AM E DT Specimen requisition ordered. ??Separate Pathology report to follow Nohemi Jaimes MD PATHOLOGY/CYTOLOGY ORDERABLE S Performing Organization Address City/State/[place] [address] CERNER MILLENNIUM COLONOSCOPY (01/16/2014 7:25 AM EDT) [facility] Method Time Signature COLONOSCOPY [facility] PROVATION Endoscopy Patient Name: Gregory Fatima ? Procedure Date: 01/16/2014 7:25 AM ? N: [id number] ? Date of : 1945 ? Age: 68 ? Order #: [id number] ? Procedure: ? Colonoscopy Indications: ? High [...] Laterality 01/16/2014 7:25 AM EDT Angela Sotelo MEDICAL DOCTOR GENERAL SURGICAL ORDERABLES Performing Organization Address City/State/ZIP [...] Routine documented in this encounter Care Teams Plastic Fabricator Relationship Specialty Start Date End Date Angela Sotelo APRN PCP - General 01/25/13 04/15/[address] [place] [address] documented as of this encounter
--- OUTSIDE RECORDS SUMMARY | 2022-02-25 08:20 | XMS_ITS | Encounter Summary ---
:1945 Author Organization [facility] [place] [address] Care Team Providers Name Role Phone Angela Holliday APRN Primary Care Provider Reason for Visit Reason Comments Other Encounter Details Date Type Department Care Team Description 08/01/2013 Telephone Dermatology at [facility] Rigoberto Garcia III, [address] [place] [address] [facility] [phone] TEJA MARIE-DERMAT [place], [place] [address] (Wo rk) Social History [...] them. Component Value Surgical Pathology Final Report [facility] Provider: RIGOBERTO GARCIA III Pt. Name: DON HOANG Acc #: [id number] Pt. Col Date: 07/31/2013 /Sex: 1945,(68 years),Male Rec Date: 07/31/2013 LOC: [facility] SURGICAL PATHOLOGY ---Pathologic Diagnosis--- Skin, right abdomen, shave biopsy: Lentiginous compound nevus with moderate atypia of the intraepidermal component, extending to the peripheral specimen edge, ulcerated, associated with spongiosis and superficial perivascular lymphoeosinophilic infiltrate (see Comment). CR-0 08/01/13 BJM 08/01/13 Verified by: Ian STRANGE, PhD, [facility] Dermatopathologist (Electronic Signature) The attending pathologist [...] Nobles MD [facility] DR TADEO [place], [place] [address] (Wo rk) 06/10/2022 Office Visit Dermatology Laura Scherer MD [facility] DR TEJA MARIE-DERMAT [place], [place] [address] (Wo rk) documented as of this encounter Visit Diagnoses Not on filedocumented in this encounter Care Teams Weaver Wire Loom Relationship Specialty Start Date End Date Angela Holliday APRN PCP - General 01/25/13 04/15/[address] [place] [address] documented as of this encounter
--- OUTSIDE RECORDS SUMMARY | 2022-02-25 08:20 | XMS_ITS | Encounter Summary ---
:1945 Author Organization [facility] [place] [address] Care Team Providers Name Role Phone Lovely Vicente MD Primary Care Provider Reason for Visit Reason Comments Skin Lesion Encounter Details Date Type Department Care Team Description 11/24/2016 [facility]oplasm of uncertain behavior of skin; Road IIIMD Pigmented skin lesion of uncertain natur e; [address] [facility] History of [place] [address] [facility] SIMÓN-DERMATOLGY [place], [place] [address] Social History Tobacco Use Types Packs/Day Years Used Date Former Smoker Smokeless Tobacco: Never Used Alcohol Use Standard Drinks/Week Comments No 0 (1 standard drink = 0.6 oz pure alcoho l) Sex Assigned at Date Recorded Not on file documented as of this encounter Patient Instructions Patient InstructionsCoNohemi watkins LPN - 11/24/2016 7:45 AM EDT [...] or concerns, please call the office at [phone]. If it is after 5PM, or a holiday or weekend, please call [phone] and ask for the Floater Operator on-call. documented in this encounter Progress Notes Nohemi Brown LPN - 11/24/2016 7:45 AM EDT [...] 71 y.o. year old male.Established patient of [employer]. Last seen 06/05/16. Here today for new [...] and in the presence of Dr. Garcia.: NOHEMI BROWN LPN I performed the above scribed service and agree with the accuracy of the documentation in this encounter. Rigoberto Garcia MD Section of Dermatology [facility] documented in this encounter Plan of Treatment Upcoming Encounters Date Type Specialty Care Team Description 03/26/2022 Office Visit Cardiology Vitaliy Nobles MD [facility] [address] TADEO [place], [place] [address] (Wo lissa) 06/10/2022 Office Visit Dermatology Laura Scherer MD [facility] DR TEJA GR-DERMAT OLOGY [place], [place] [address] (Wo lissa) documented as of [...] Component Value Ref Test Analysis Performed At [facility] Range Method Time Signature Surgical [id number] ?Location: [facility] Report The signing pathologist has (i) examined [...] Organization Address City/State/[place] [address] Specimen to Pathology (NON-OR) (11/24/2016 8:28 AM EDT) Specimen Anatomical Collection Method Collection Time Receive d Time (Source) Location / / Volume Laterality AP Specimen 11/24/2016 8:28 AM 7 9:29 EDT AM EDT Narrative [facility] - 11/24/2016 9:29 AM EDT Specimen requisition ordered. ??Separate Pathology report to follow Resulting Agency Comment Spec In Lab Rigoberto Garcia III, MD PATHOLOGY/CYTOLOGY ORDERABLE S Performing Organization Address City/State/[place] [address] documented in this encounter Visit Diagnoses Diagnosis Neoplasm of uncertain behavior of skin Pigmented skin lesion of uncertain natur e History of melanoma Personal history of malignant melanoma o f skin documented in this encounter Care Teams Adult Literacy Teacher Relationship Specialty Start Date End Date Lovely Vicente MD PCP - General 04/16/[address] [place] [address] documented as of this encounter
--- OUTSIDE RECORDS SUMMARY | 2022-02-25 08:20 | XMS_ITS | Encounter Summary ---
:1945 Author Organization [facility] [place] [address] Care Team Providers Name Role Phone Lovely Vicente MD Primary Care Provider Reason for Visit Reason Comments Skin Check Encounter Details Date Type Department Care Team Description 04/16/2015 Follow-Up Dermatology at Rigoberto Forman x of melanoma of skin; Abdelrahman HOOPER MD Multiple benign nevi [address] [place] [address] [facility]-DER[facility]OLGY [place], [place] [address] (Wo rk) Social History Tobacco [...] Diagnostic, Drum (ACCU-CHEK COMPACT TEST) Strip by [facility]Non- Drug; Combo Route) route 2 times daily. [...] Rigoberto Garcia MD Section of Dermatology [facility] documented in this encounter Plan of Treatment Upcoming Encounters Date Type Specialty Care Team Description 03/26/2022 Office Visit Cardiology Vitaliy Nobles MD [facility] CARDIOLOGY [place], [place] [address] (Wo rk) 06/10/2022 Office Visit Dermatology Laura Scherer MD [facility] ER DR TEJA GR-DERMAT [place], [place] [address] (Wo rk) documented as of this encounter Visit Diagnoses Diagnosis Hx of melanoma of skin Personal history of malignant melanoma o f skin Multiple benign nevi Benign neoplasm of skin, site unspecifie d documented in this encounter Care Teams Chart Picker Relationship Specialty Start Date End Date Lovely Vicente MD PCP - General 04/16/[address] [place] [address] documented as of this encounter
--- OUTSIDE RECORDS SUMMARY | 2022-02-25 08:20 | XMS_ITS | Encounter Summary ---
:1945 Author Organization [facility] [place] [address] Care Team Providers Name Role Phone Lovely Vicente MD Primary Care Provider Encounter Details Date Type Department Care Team Description 11/28/2016 Telephone Dermatology at [facility] Rigoberto Garcia III, [address] [place] [address] [facility] [phone] [facility] SIMÓN-DERMAT [place], [place] [address] (Wo rk) Social History Tobacco [...] Nobles MD [facility] [address] TADEO [place], [place] [address] (Wo rk) 06/10/2022 Office Visit Dermatology Laura Scherer MD [facility] DR TEJA MARIE-DERMAT [place], [place] [address] (Wo rk) documented as of this encounter Visit Diagnoses Not on filedocumented in this encounter Care Teams Rn Travel Relationship Specialty Start Date End Date Lovely Vicente MD PCP - General 04/16/[address] [place] [address] [address] [place] [address] documented as of this encounter
--- OUTSIDE RECORDS SUMMARY | 2022-02-25 08:20 | XMS_ITS | Encounter Summary ---
:1945 Author Organization [facility] [place] [address] Care Team Providers Name Role Phone Angela Holliday APRN Primary Care Provider Encounter Details Date Type Department Care Team Description 03/30/2013 Telephone General Surgery at [facility] Cliff Nevarez, [place] [address] Social History Tobacco Use Types Packs/Day [...] Visit Cardiology Vitaliy Nobles MD [facility] CARDIOLOGY [place], [place] [address] (Wo rk) 06/10/2022 Office Visit Dermatology Laura Scherer MD [facility] ER DR TEJA GR-DERMAT [place], [place] [address] (Wo rk) documented as of this encounter Visit Diagnoses Not on filedocumented in this encounter Care Teams Morale Officer Relationship Specialty Start Date End Date Angela Holliday APRN PCP - General 01/25/13 04/15/[address] [place] [address] documented as of this encounter
--- OUTSIDE RECORDS SUMMARY | 2022-02-25 08:20 | XMS_ITS | Encounter Summary ---
:1945 Author Organization [facility] [place] [address] Care Team Providers Name Role Phone Miya Angela STACIE Primary Care Provider Encounter Details Date Type Department Care Team Description 04/24/2013 Telephone Urology at [facility] Zhen Bowman [place] [facility] [address] UROLOGY DEPT [phone] [place], [place] [address] (Wo rk) Social History [...] Cardiology Vitaliy Nobles MD [facility] DR TADE[address] [place], [place] [address] (Wo rk) 06/10/2022 Office Visit Dermatology Laura Scherer MD [facility] DR TEJA GR-DERMAT OGY [place], [place] [address] (Wo rk) documented as of this encounter Visit Diagnoses Not on filedocumented in this encounter Care Teams Stud Sheep Farmer Relationship Specialty Start Date End Date Angela Holliday APRN PCP - General 01/25/13 04/15/[address] [place] [address] documented as of this encounter
--- OUTSIDE RECORDS SUMMARY | 2022-02-25 08:20 | XMS_ITS | Encounter Summary ---
:1945 Author Organization [facility] [place] [address] Care Team Providers Name Role Phone Angela Holliday APRN Primary Care Provider Reason for Visit Reason Comments Skin Check Encounter Details Date Type Department Care Team Description 07/31/2013 Follow-Up Dermatology at Rigoberto Forman eoplasm of unspecified nature of bone, soft tissue, and skin (Primary Dx); Abdelrahman HOOPER MD Seborrheic psoriasis- scalp and ingtergl uteal area; [address] [facility] Atypical [place] [address] [facility]-DERMATOLGY [place], [place] [address] (Wo rk) Social History Tobacco [...] encounter. Rigoberto Albarran MD Section of Dermatology [facility] documented in this encounter Plan of Treatment Upcoming Encounters Date Type Specialty Care Team Description 03/26/2022 Office Visit Cardiology Vitaliy Nobles MD [facility] [address] TADE[address] [place], [place] [address] (Wo lissa) 06/10/2022 Office Visit Dermatology Laura Scherer MD [facility] DR TEJA GR-DERMAT OGY [place], [place] [address] (Mikayla alcaraz) Scheduled Orders Name [...] Component Value Ref Test Analysis Performed At [facility] gist Range Method Time Signature Surgical CERNER Pathology ? [facility] Report ? Provider: ?? RIGOBERTO ALBARRAN III Pt. Name: ?? GREGORY HOANG ?A ? Acc #: ?[id number] ? Pt. ? Col Date: ?? 07/31/2013 [...] controls. ??These ? IHC studies provide t pathologist with adjunctive diagnostic information. ? Antibody [...] 0.9 x 0.8 x 0.2 cm. ? [facility] ? Provider: ?? DEION III, RIGOBERTO Pt. Name: ?? GREGORY HOANG ?A ? Acc #: ?[id number] ? Pt. ? Col Date: ?? 07/31/2013 [...] [facility]/[place] [address] CERNER MILLENNIUM Specimen to [...] Performing Organization Address City/[facility] [place] [address] CERNER MILLENNIUM documented in this encounter Visit Diagnoses Diagnosis Neoplasm of unspecified nature of bone, soft tissue, and skin - Primary Seborrheic psoriasis- scalp and ingtergl uteal area Other psoriasis Atypical nevus of abdominal wall Benign neoplasm of skin of trunk, except scrotum documented in this encounter Care Teams Supervisor Shipping Room Relationship Specialty Start Date End Date Angela Holliday APRN PCP - General 01/25/13 04/15/[address] [place] [address] documented as of this encounter
--- OUTSIDE RECORDS SUMMARY | 2022-02-25 08:20 | XMS_ITS | Encounter Summary ---
:1945 Author Organization [facility] [place] [address] Care Team Providers Name Role Phone MiyaLokeshAngela STACIE Primary Care Provider Reason for Visit Reason Onset Date Comments Post-op Problem 04/05/2013 voiding trial Encounter Details Date Type Department Care Team Description 04/05/2013 Telephone Urology at [facility] Blade Smith, Post-op Problem [facility] (voiding trial) [place] [address] UROLOGY DEPT [place] [id number] (Wo rk) Social History Tobacco Use Types [...] Vitaliy Nobles MD [facility] [address] T[address] [place], [place] [address] (Wo rk) 06/10/2022 Office Visit Dermatology Laura Scherer MD [facility] [address] TEJA GR-DERMAT OLOGY [place], [place] [address] (Wo rk) documented as of this encounter Visit Diagnoses Not on filedocumented in this encounter Care Teams District Administrative Assistant Relationship Specialty Start Date End Date Angela Holliday APRN PCP - General 01/25/13 04/15/[address] [place] [address] documented as of this encounter
--- OUTSIDE RECORDS SUMMARY | 2022-02-25 08:20 | XMS_ITS | Encounter Summary ---
:1945 Author Organization [facility] [place] [address] Care Team Providers Name Role Phone Angela Holliday STACIE Primary Care Provider Encounter Details Date Type Department Care Team Description 04/04/2013 Telephone Urology at [facility] Parker Sanchez MD [facility] [place] [address] UROLOGY DEPT [phone] [place], [place] [address] (Wo rk) Social History Tobacco [...] MD [facility] ER [address] CARLYLE [place] [address] (Wo rk) 06/10/2022 Office Visit Dermatology Laura Scherer MD [facility] ER DR [address]-DERMAT [place], [place] [address] (Wo rk) documented as of this encounter Visit Diagnoses Not on filedocumented in this encounter Care Teams Cell Attendant Helper Relationship Specialty Start Date End Date Angela Holliday APRN PCP - General 01/25/13 04/15/[address] [place] [place] [address] documented as of this encounter
--- OUTSIDE RECORDS SUMMARY | 2022-02-25 08:20 | XMS_ITS | Encounter Summary ---
:1945 Author Organization [facility] [place] [address] Care Team Providers Name Role Phone Angela Holliday APRN Primary Care Provider Reason for Visit Reason Onset Date Comments Other 03/30/2013 blood in catheter ba g Encounter Details Date Type Department Care Team Description 03/30/2013 Telephone General Surgery at [facility] Janneth Sharma, Other (blood in [facility] RN catheter bag) [place] [address] Social History Tobacco Use Types Packs/Day [...] MD [facility] [address] TADE[address] [place], [place] [address] (Wo rk) 06/10/2022 Office Visit Dermatology Laura Scherer MD [facility] DR TEJA GR-DERMAT OGY [place], [place] [address] (Wo rk) documented as of this encounter Visit Diagnoses Not on filedocumented in this encounter Care Teams Wire Winder Relationship Specialty Start Date End Date Angela Holliday APRN PCP - General 01/25/13 04/15/[address] [place] [address] documented as of this encounter
--- OUTSIDE RECORDS SUMMARY | 2022-02-25 08:20 | XMS_ITS | Encounter Summary ---
:1945 Author Organization [facility] [place] [address] Care Team Providers Name Role Phone MiyaAngela STACIE Primary Care Provider Encounter Details Date Type Department Care Team Description 11/27/2013 Orders Only Urology at [facility] Blade Smith, Urinary retention [facility] (Primary Dx) [place] [address] UROLOGY DEPT [place], [place] [address] Social History Tobacco Use Types [...] [facility] ER DR TADEO [place], [place] [address] (Wo rk) 06/10/2022 Office Visit Dermatology Laura Scherer MD [facility] DR [address]-DERMAT OLOGY [place], [place] [address] (Wo rk) documented as [...] Organization Address City/State/[place] [address] [facility] MILLENNIUM documented in this encounter Visit Diagnoses Diagnosis Urinary retention - Primary Retention of urine, unspecified documented in this encounter Care Teams Gear Finisher Relationship Specialty Start Date End Date Angela Holliday APRN PCP - General 01/25/13 04/15/[address] [place] [address] documented as of this encounter
--- OUTSIDE RECORDS SUMMARY | 2022-02-25 08:20 | XMS_ITS | Encounter Summary ---
:1945 Author Organization [facility] [place] [address] Care Team Providers Name Role Phone MiyaLokeshAngela STACIE Primary Care Provider Encounter Details Date Type Department Care Team Description 01/16/2014 Hospital Encounter Gastroenterology at [facility] Nohemi Jaimes, [facility] [place] [address] [facility] [phone] [facility] [place], [place] [address] Social History Tobacco Use Types [...] you need to be checked. [facility] [phone] 8a-5p Same Day Endo [phone] 7a-8p Otherwise contact [phone] and ask to speak to the custom garment designer optoelectronic technician Follow up care is a shelton part [...] Jaimes MD - 01/16/2014 9:49 AM EDT [facility] Operative Note Patient Name: Gregory Fatima : [id number] MR#: [id number] Case Date: 01/16/2014 Surgeon: Surgeon(s) and Role: * Nohemi Jaimes MD - Primary Preoperative diagnosis: 5 yr surv. Full procedure note is documented under the Procedure section of eDH. documented in this encounter Plan of Treatment Upcoming Encounters Date Type Specialty Care Team Description 03/26/2022 Office Visit Cardiology Vitaliy Nobles MD [facility] [address] [place], [place] [address] (Wo rk) 06/10/2022 Office Visit Dermatology Laura Scherer MD [facility] [address] OLOG[address] [place], [place] [address] (Wo rk) documented as of [...] Surgical Pathology Report (01/16/2014 9:53 AM EDT) [facility] Method Time Signature Surgical CERNER Pathology ? [facility] Report ? Provider: ?? SHREE, NOHEMI Gonzalez ?Pt. Name: ?? SURINDER RT, GREGORY Mccollum ? Acc #: ?[id number] ?Pt. MRN: ?[id number] ? Col Date: ?? 4 ? /Sex: [...] Address City/State/ZIP Code Phon e Number [address] [facility] Specimen to Pathology (surgical or derm) (01/16/2014 9:53 AM EDT) Specimen Anatomical Collection Method Collection Time Receive d Time (Source) Location / / Volume Laterality AP Specimen 01/16/2014 9:53 AM 4 9:53 EDT AM EDT Narrative CERNER MILLENNIUM - 01/16/2014 9:53 AM E DT Specimen requisition ordered. ??Separate Pathology report to follow Nohemi Jaimes MD PATHOLOGY/CYTOLOGY ORDERABLE S Performing Organization Address City/[facility]/ZIP Code Phon e Number [address] [place] Specimen to Pathology (surgical or derm) (01/16/2014 9:53 AM EDT) Specimen Anatomical Collection Method Collection Time Receive d Time (Source) Location / / Volume Laterality AP Specimen 01/16/2014 9:53 AM 4 9:53 EDT AM EDT Narrative RAKESH VILLALOBOSENNIUM - 01/16/2014 9:53 AM E DT Specimen requisition ordered. ??Separate Pathology report to follow Nohemi Jaimes MD PATHOLOGY/CYTOLOGY ORDERABLE S Performing Organization Address [facility]/State/[place] [address] CERNER MILLENNIUM COLONOSCOPY (01/16/2014 7:25 AM EDT) [facility] Method Time Signature COLONOSCOPY [facility] Endoscopy Patient Name: Gregory Fatima ? Procedure Date: 01/16/2014 7:25 AM ? N: [id number] ? Date of : 1945 ? Age: 68 ? Order #: [id number] ? Procedure: ? Colonoscopy Indications: ? High risk colon cancer surveillance : ? 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 dm on metformin with bs ~ 110 this ? am,s/p melanoma years ago, os a, ? goiter s/p surgery, p Providers: ? Nohemi Jaimes MD, Blanca ixong, ? RN, Jacquie Renner RN Referring : ?Angela Sotelo MD Medicines: ? Midazolam 4.5 [...] Blanca Samuel RN)0911 (Given - Provider: Blanca Samuel, RN) ONCE PRN, Starting 01/16/14 at 0856, Until Tu01/16/14 at 1036, Pain, Intra- Operative (Intra-Procedure), Routine midazolam (PF) (VERSED) 1 mg/mL injection (CANCELED) 0856 (Given - Provider: Blanca Samuel RN)0859 (Given - Provider: Blanca Samuel, RN)0902 (Given - Provider: Blanca Samuel, RN)0911 (Given - Provider: Blanca Samuel, RN)0914 (Given - Provider: Blanca Samuel, RN) ONCE PRN, Starting 01/16/14 at 0856, Until Wed01/16/14 at 1036, Sleep, Intra- Operative (Intra-Procedure), Routine documented in this encounter Care Teams Route Sales Delivery Drivers Supervisor Relationship Specialty Start Date End Date Angela Sotelo APRN PCP - General 01/25/13 04/15/[address] [place] [place] [address] documented as of this encounter
--- OUTSIDE RECORDS SUMMARY | 2022-02-25 08:20 | XMS_ITS | Encounter Summary ---
:1945 Author Organization [facility] [place] [address] Care Team Providers Name Role Phone Lovely Vicente MD Primary Care Provider Reason for Visit Reason Comments Follow-up Encounter Details Date Type Department Care Team Description 06/03/2017 Office Visit Dermatology at [facility]to Forman benign nevi; Abdelrahman HOOPER MD History of melanoma; [address] [facility] History of dysplastic nevus; [place] [address] Skin exam for malignant neoplasm [phone] [facility] [place], [place] [address] Social History Tobacco Use Types [...] acting as a scribe for Dr. Rigoberto aGrcia. I performed the above scribed service and [...] 03/26/2022 Office Visit Cardiology Vitaliy Nobles MD [facility] ER [address] [place], [place] [address] (Wo rk) 06/10/2022 Office Visit Dermatology Laura Scherer MD [facility] [address]MAT [place], [place] [address] (Wo rk) documented as [...] skin documented in this encounter Care Teams Employment Officer Relationship Specialty Start Date End Date Lovely Vicente MD PCP - General 04/16/[address] [place] [address] documented as of this encounter
--- OUTSIDE RECORDS SUMMARY | 2022-02-25 08:20 | XMS_ITS | Encounter Summary ---
:1945 Author Organization [facility] [place] [address] Care Team Providers Name Role Phone Lovely Vicente MD Primary Care Provider Reason for Visit Reason Comments Nevus excision dysplastic nevus mi d upper abdomen Encounter Details Date Type Department Care Team Description 12/03/2016 Procedure visit Dermatology at Halima Dubois Dysplastic nevus of Road MD Adrián trunk [address] [facility] [address] [facility] [phone] [address] [place] [address] Social History Tobacco Use Types Packs/Day Years [...] Halima Cordero MD during the day at [phone] Nurse: Mira [phone] Amy After 5 PM and on weekends, please call the hospital number , and ask for the Fire Prevention Officer section gang. documented in this encounter Progress Notes Halima Cordero MD - 12/10/2016 5:41 PM EDT Gwendolyn, Excision shows scar, there is no residual of the severely dysplastic nevus. Please notify patient and check on wound healing. Thank you, DTB Halima Cordero MD - 12/03/2016 3:00 PM EDT Images from the original note were not included. Dermatology Procedure note: Attending: Halima Cordero MD Grid Operator: Mira James LPN Referring MD: Rigoberto Garcia [...] to call the clinic or the on-call mattress specialist over the weekend. ??? Name of [...] Cardiology Vitaliy Nobles MD [facility] [address] [place], [place] [address] (Wo rk) 06/10/2022 Office Visit Dermatology Laura Scherer MD [facility] [address] [place], [place] [address] (Wo rk) documented as of [...] Component Value Ref Test Analysis Performed At [facility] Method Time Signature Surgical [id number] ?Location: [facility] Report The signing pathologist has [...] Clinical Diagnosis: Dysplastic nevus, see previous pathology [id number] SPECIMEN PROCESSING A - Labeled/Fixative: Mid-upper abdomen, [...] MD PATHOLOGY/CYTOLOGY ORDERABLE S Performing Organization Address City/[facility]/ZIP [place] [address] Specimen to Pathology (NON-OR) (12/03/2016 3:31 PM EDT) Specimen Anatomical Collection Method Collection Time Receive d Time (Source) Location / / Volume Laterality AP Specimen 12/03/2016 3:31 PM 7 6:27 EDT PM EDT Narrative [facility] - 12/03/2016 6:27 PM EDT Specimen requisition ordered. ??Separate Pathology report to follow Resulting Agency Comment Spec In Lab Halima Cordero MD PATHOLOGY/CYTOLOGY ORDERABLE S Performing Organization Address City/State/ZIP [place] [address] documented in this encounter Visit Diagnoses Diagnosis Dysplastic nevus of trunk Benign neoplasm of skin of trunk, except scrotum documented in this encounter Care Teams Craft Manager Relationship Specialty Start Date End Date Lovely Vicente MD PCP - General 04/16/[address] [place] [address] documented as of this encounter
--- OUTSIDE RECORDS SUMMARY | 2022-02-25 08:20 | XMS_ITS | Encounter Summary ---
:1945 Author [address] [facility] [place] [address] Care Team Providers Name Role Phone Lovely Vicente MD Primary Care Provider Encounter Details Date Type Department Care Team Description 07/10/2016 Telephone Dermatology at [facility] Rigoberto White III, [address] [place] [address] [facility] [phone] [facility] [place], [place] [address] (Wo rk) Social History Tobacco [...] Cardiology Vitaliy Nobles MD [facility] [address] [place], [place] [address] (Wo rk) 06/10/2022 Office Visit Dermatology Laura Scherer MD [facility] DR TE[address] MARIE[facility], [place] [address] (Wo rk) documented as of this encounter Visit Diagnoses Not on filedocumented in this encounter Care Teams Division Order Analyst Relationship Specialty Start Date End Date Lovely Vicente MD PCP - General 04/16/[address] [place] [address] documented as of this encounter
--- OUTSIDE RECORDS SUMMARY | 2022-02-25 08:20 | XMS_ITS | Encounter Summary ---
:1945 [place] [address] Care Team Providers Name Role Phone Lovely Vicente MD Primary Care Provider Reason for Visit Auth/Cert Specialty Diagnoses / Procedures Referred By Contact Refer red To Contact Diagnoses STEMI (ST elevation myocardial infarction) NSTEMI STEMI Procedures CARDIAC CATHETERIZATION NAYE IPI Referral ID Status Reason Start Date Expiration Date Visits Requ ested Visits Authorized [id number] 1 1 Encounter Details Date Type Department Care Team Description 07/05/2017 Surgery Pharmacy Sales Assistant Jet Guan, CARDIAC CATHETERIZATION [facility] [place] [address] CARDIOLOGY DEPT. [phone] [place], [place] [address] (Wo rk) Social History Tobacco [...] this encounter Discharge Summaries Martha Teague S, AVIONICS ELECTRICAL ENGINEER - 07/14/2017 9:38 AM EST Inpatient - Discharge Summary Patient Name: Gregory Hoang Patient Age: 72 y.o. Birthdate: 1945 Language: Omani Race: White Ethnicity: Not nor Admit Date: [...] , @ 1:20p Patient to follow-up with Airfield Defence Guard/heart failure team in one week. An appointment will be made for you. You may call [phone] Patient to follow-up with Cardiac Surgery, Dr. Yuan Webber, in ~ 4 weeks with CXR, EKG. Inpatient Provider Contact Information: [facility] Section of Cardiac Surgery [facility] [place] [address] FAX [phone] Discharge Diagnoses (Hospital Problems) Primary Diagnoses: CAD [...] performed by Manny Mcknight MD at [facility] OR ??? PRO CABG, ARTERIAL, SINGLE N/A 07/07/2017 @CABG, USING ARTERIAL GRAFT;SINGLE ARTERIAL GRAFT (WRVU 33.75) performed by Yuan Webber MD at [facility] OR ??? PRO CABG, ARTERY-VEIN, TWO N/A 07/07/2017 @CABG, TWO VENOUS GRAFTS & ARTERIAL GRAFT (WRVU 7.93) performed by Yuan Webber MD at [facility] OR ??? PRO COLONOSCOPY, REMV LESN, SNARE 01/16/2014 COLONOSCOPY, POLYPECTOMY, REMOVAL LESION BY SNARE performed by Nohemi Jaimes MD at [facility] ENDOSCOPY ??? PRO ENDOSCOPY W/VIDEO-ASST VEIN HARVEST, CABG Right 07/07/2017 ENDOSCOPIC HARVEST VEIN(S) FOR CABG (WRVU 0.31) performed by Yuan Webber MD at [facility] OR ??? PRO THYROIDECTOMY 03/28/2013 THYROIDECTOMY, TOTAL OR COMPLETE performed by Manny Mcknight MD at [facility] OR Prior To Admission Medications Prescriptions Prior to Admission Medication Sig Dispense Refill Last Dose ??? levothyroxine (SYNTHROID) 175 mcg Tablet Take 1 tablet by mouth daily. 90 tablet 3 07/05/2017 [id number] ??? ascorbic acid, vitamin C, (VITAMIN C) [...] Hospital Course: Gregory Hoang was admitted to [facility] on 07/05/2017 via the Cardiology Service. During his hospital course, he was taken emergently to the greens laborer for an ongoing STEMI. An IABP [...] not take or discontinue any prescription or klvp-amc-zfajgvo medications without asking your doctor or pharmacist [...] Yuan Webber and/or the Cardiac Surgery Physician Fagoting Machine Operator Team may be reached at [...] Dr. Yuan Webber. You may use a Keddie Track or treadmill but avoid any pulling [...] friends, go to a movie, go to alevism, etc. Heavy activities: No hunting, skiing, jogging, snow shoveling, snowmobiling, lawn mowing, swimming, golf or tennis until after your return appointment with the surgeon. Do not ride motorcycles, [employer] tractors or horses. Avoid the use of [...] should resume a low fat, low cholesterol, Peruvian Heart Association Diet/Diabetic diet. Driving: No driving [...] , @ 1:20p Patient to follow-up with Airfield Defence Guard/heart failure team in one week. Appointment will be made for you. You may call [phone] Patient to follow-up with Cardiac Surgery, Dr. Yuan Webber, in ~ 4 weeks with CXR, EKG. Cardiac Rehabilitation: Gregory Hoang was seen today regarding participation in the outpatient Phase 2 Cardiac Rehabilitation at [facility]. The patient agrees to a referral to this program. The referral will be sent at discharge and the patient should be contacted by the Program within 1- 2 weeks from discharge. ?? Future Appointments and Orders Future Appointments Provider Department Dept Phone 09/07/2017 3:00 PM LAB, THREE L Lab 3L [facility] [phone] 09/07/2017 4:00 PM Luz Prescott MD Endocrinology at [facility] [phone] Future Orders Complete By Expires EKG 12 Lead [EKG1 Custom] 08/14/2017 02/13/2018 Process Instructions: Scheduling Instructions: Questions: Which DH location will this be performed?: [facility] Is a rhythm strip needed?: No If EKG Reason is Pre-op Evaluation, indicate diagnosis for surgery.: XR Chest PA & Lateral (Generic) [[id number] Custom] 08/14/2017 02/13/2018 Process Instructions: Scheduling Instructions: Questions: Where will study be performed?: [facility] Portable exam?: Reason for exam and clinical history: CABG x 3 Other pertinent information: Stat read required?: Date of injury if applicable: Requested Time: Referral to Cardiac Rehab [LQL344 Custom] As directed Process Instructions: If no progress note charted, please enter Clinical details in comments. Scheduling Instructions: Questions: My question or request is: s/p CABG. Cardiac rehab at [facility] Referral to Home Health - at DISCHARGE [YXH3706 CPT(R)] As directed Process Instructions: Scheduling Instructions: Comments: DOCUMENTATION FOR VNA SERVICES (INCLUDING THOSE PATIENTS WITH MEDICARE COVERAGE REQUIRING HOME VNA SERVICES AND/OR HOSPICE SERVICES) PATIENT'S LOCATION: Gregory Hoang [address] [place] [address] [place] [address] (home) Telephone Information: Waterproof Coating Machine Tender's Name: self In discussion with the attending physician, it is certified that this patient is under their care and that they, or a Nurse Practitioner, or Physician Fagoting Machine Operator who is working directly with [...] [facility] ([facility] [place] [facility] in [place]) PHONE: [phone] FAX: [phone] RN orders: Cardiopulmonary assessment, incisional assessment, assess vital signs, assessment of rehab progress, medication management and effectiveness, home safety evaluation. Please draw INR if indicated and send result to:Dr Vicente [phone] PT ORDERS: Continue rehab for endurance, gait stability and strength with mobility and transfers. Home safety evaluation. Home exercise program if appropriate. Start of Care Date:24-48 hours after discharge SPECIAL INSTRUCTIONS: For any follow up questions, needs, or issues please call the Cardiac Surgery Office at [phone] FOR MEDICARE ONLY: (please delete this section [...] OR AFTER 07/17/2017 Signed: Martha Teague APRN [facility] Section of Cardiac Surgery [facility] [place] [address] FAX [phone] Date: 07/14/2017 CC: MD Ivania Cr Betsy, PA [address] [place] [phone] documented in this encounter Discharge Instructions Discharge [...] not take or discontinue any prescription or hhvn-uyp-fzgyuzh medications without asking your doctor or pharmacist [...] Yuan Webber and/or the Cardiac Surgery Physician Fagoting Machine Operator Team may be reached at [...] Dr. Yuan Webber. You may use a Keddie Track or treadmill but avoid any pulling [...] friends, go to a movie, go to alevism, etc. ?? Heavy activities: No hunting, skiing, jogging, snow shoveling, snowmobiling, lawn mowing, swimming, golf or tennis until after your return appointment with the surgeon. Do not ride motorcycles, [employer]'s tractors or horses. Avoid the use of [...] should resume a low fat, low cholesterol, Peruvian Heart Association Diet/Diabetic diet. ?? Driving: No [...] @ 1:20p ?? Patient to follow-up with Airfield Defence Guard/heart failure team in one week. An appointment has been made for you, you can call [phone] ?? Patient to follow-up with Cardiac Surgery, Dr. Yuan Webber, in ~ 4 weeks with CXR, EKG. ? Cardiac Rehabilitation: Gregory Hoang??was seen today regarding participation in the outpatient Phase 2 Cardiac Rehabilitation at [facility]. ?? The patient agrees to a referral to this program.? The referral will be sent at discharge and the patient should be contacted by the Program within 1- 2 weeks from discharge. ? Future Appointments and Orders Future Appointments Provider Department Dept Phone ?? 09/07/2017 3:00 PM LAB, THREE L Lab 3L [facility] [phone] ?? 09/07/2017 4:00 PM Luz Prescott MD Endocrinology at [facility] [phone] Future Orders Complete By Expires ?? EKG 12 Lead [EKG1 Custom] 08/14/2017 02/13/2018 ?? Process Instructions: ? Scheduling Instructions: ? Questions: ? Which location will this be performed?: [facility] ?? Is a rhythm strip needed?: No ?? If EKG Reason is Pre-op Evaluation, indicate diagnosis for surgery.: ?? XR Chest PA & Lateral (Generic) [[id number] Custom] 08/14/2017 02/13/2018 ?? Process Instructions: ? Scheduling Instructions: ? Questions: ? Where will study be performed?: [facility] ?? Portable exam?: ?? Reason for exam and clinical history: CABG x 3 ?? Other pertinent information: ?? Stat read required?: ?? Date of injury if applicable: ?? Requested Time: ?? Referral to Cardiac Rehab [[id number] Custom] As directed ? Process Instructions: ?? If no progress note charted, please enter Clinical details in comments. ?? Scheduling Instructions: ? Questions: ? My question or request is: s/p CABG. Cardiac rehab at [facility] ? Arrangements for VNA/home care: [...] RN - 07/14/2017 2:34 PM EST The patient/scheduling representative has been provided a list of Home Health Agencies/DME vendors which serve their preferred geographic area. A letter describing our affiliations was reviewed with them and theywere educated about their right to choose where referrals are placed. Patient requests referral to [facility] [employer]. PHONE: [phone] FAX: [phone] Expected date of discharge: 07/14 Referral routed to the Manufacturing Group Leader for matching with agency/vendor and to provide [...] [facility] Endocr[facility] Diabetes Management Pager [phone] minutes of this 35 minute visit was spent with the patient in counseling on diabetes and treatment plan, reviewing all glucose and insulin data as well as relevant laboratory results with the patient, and coordination of care on the inpatient unit including nursing and primary team. Zulma Andres RN - 07/14/2017 10:30 AM EST The patient/scheduling representative has been provided a list of Home Health Agencies/DME vendors which serve their preferred geographic area. A letter describing our affiliations was reviewed with them and theywere educated about their right to choose where referrals are placed. Patient requests referral to : Yasmani Munguia ([facility] [place] [facility]-is in [place]) PHONE: [phone] FAX: [phone]. Expected date of discharge: 07/14/17 Referral routed to the Manufacturing Group Leader for matching with agency/vendor and to provide [...] #6 s/p CABG X3. FSBG 80 at [place], reports no symptoms but did drink some [...] [facility] Endocr[facility] Diabetes Management Pager [phone] minutes of this 25 minute visit [...] of infiltration/extravasation Discussed plan of care with ASSISTED LIVING COORDINATOR and RN. Elevate exrtemity and apply intermittent Warm compresses. Name of MD contacted Dr. Shaw Brown 07/13/2017 @ 0655 Name of RN contacted Ale Rangel RN Name of Pharmacist if consulted NA Name of Plastics MD ( if consulted) NA (Mandatory photo for infiltrations/ extravasations scoring a stage 2 or greater, but recommended forstage 1)( include measuring tape and identifier in the photo) MORALE OFFICER CARING FOR THIS PATIENT WILL CONTINUE TO [...] measuring tape and identifier in the photo) MORALE OFFICER CARING FOR THIS PATIENT WILL CONTINUE TO [...] AM EST Cardiac Surgery Progress Note: ID: [id number] 72 year old male POD#6 s/p CABGx3 [...] discharge. ?? I have met with the patient/scheduling representative to discuss discharge planning needs. I have provided the [facility], Office of Care Management letter from the Sol[employer] pertaining to rehab referrals. I have also provided a letter describing our affiliations within the [facility] and educated them about their right to choose where referrals are placed. ?? I reviewed the different levels of rehab including SNF, swing, acute and LTAC with the patient/scheduling representative. ?? The patient/scheduling representative has been provided a list of facilities within their preferred geographic area. ?? I have requested that the patient/scheduling representative provide at least three choices for referral. ?? The patient/scheduling representative have requested referrals to: ?? 1. . ?? 2. [facility] ?? 3. More to be entered ?? Expected date of discharge: 07/14 Note routed to Manufacturing Group Leader who will communicate referrals to facilities and [...] hours. If BG remains greater than 240, nkyoze50 units (no more than three times) & [...] hours. If BG remains greater than 240, wokuqc86 units (no more than three times) & call for new basal insulin orders. ??If less than 240 after two hours, give no insulin and resume prior schedule. Will continue to follow Katerin Azul APRN [facility] Endocrinology Diabetes Management Pager [phone] minutes of this 35 minute visit was spent with the patient in counseling on diabetes and treatment plan, reviewing all glucose and insulin data as well as relevant laboratory results with the patient, and coordination of care on the inpatient unit including nursing and primary team. Makayla Stevenson APRN - 07/12/2017 9:52 AM EST Cardiac Surgery Progress Note: ID: [id number] 72 year old male POD#5 s/p CABGx3 [...] pulled off with fresh serousangious drainage. Makayla STRAGNE notified. Incision cleaned with chlorhexidine and completely [...] in chair. O2 via NC Assessment: Gregory oHang is a 72 y.o. male with PMH [...] hours. If BG remains greater than 240, kpuciy32 units (no more than three times) & [...] AM EST Cardiac Surgery Progress Note: ID: [id number] 72 year old male POD#4 s/p CABGx3 [...] AM EST Cardiac Surgery Progress Note: ID: [id number] 72 year old male POD#3 s/p CABGx3 [...] Gas) No results found for: PHART, PO2ART, JUD1MHC Assessment/Plan: 72 year old male POD#3 s/p [...] Mami Thao - 07/09/2017 6:29 PM EST Event Mgr Encounter Note Patient Name: Gregory Hoang : [id number] MR#: [id number] Admit Date: 07/05/2017 4:20 PM Hospital Day 4 days Narrative: Patient was sitting in chair, hugging heart pillow, opened his eyes, nodding to come into room Assessment: Patient was sleepy. Intervention and Outcome: Introduced cloth designer services and patient reached his hand out in appreciation. Follow-up: Event Mgr remains available for support. Time in Direct [...] 10:45 AM EST Report given to staffing branch manager to cover care Maddison Cee PA - 07/09/2017 9:00 AM EST Cardiac Surgery Progress Note: ID: [id number] 72 year old male POD#2 s/p CABGx3 [...] Attending Surgeon on rounds. Signed: STEPHANIE Iqbal [facility] Section of Cardiac Surgery Date: [...] when IABP d/c'ed. Gretchen Carolina, PT Pager [phone] Maddison Cee PA - 07/08/2017 11:27 AM EST Cardiac Surgery Progress Note: ID: [id number] 72 year old male POD#1 s/p CABGx3 [...] Attending Surgeon on rounds. Signed: STEPHANIE Iqbal [facility] Section of Cardiac Surgery Date: [...] in place in R femoral. No hematoma. DANCE PROFESSOR- Intact Psych- Anxious Skin- Dry, no peripheral [...] intact. IABP in place in R femoral. DANCE PROFESSOR- Intact Psych- Anxious Skin- Dry, no peripheral [...] note for details. DAPHNE SHAHID MD Pager [phone] Jet Mckenna MD - 07/05/2017 6:48 PM EST Preliminary Cardiac Catheterization Procedure Note: Procedure(s) performed: Left heart cath, IABP insertion Access: Right BUILDING PRINCIPAL-->8fr IABP A time-out was conducted prior to [...] effect. Heparin gtt maintained. Pt transferred to greens laborer. documented in this encounter H&P Notes Daphne Shahid MD - 07/05/2017 6:08 PM EST CARDIOLOGY HISTORY & PHYSICAL EXAM Date of Admission: 07/05/2017 ( Hospital Day 0 days ) Responsible Attending: Daphne Shahid MD PCP: Lovely Vicente MD PCP#: [phone] Patient Active Problem List Diagnosis Code ??? [...] No significant valvular disease. Taken to the greens laborer urgently for ongoing STEMI. [facility] Labs: INR 1.0 WBC 5.88 [...] monitor I/O - s/p lasix in the greens laborer, redose to aim net neg 1L [...] Medicine, PGY-2 Cardiology S1, Team Pager # [phone] CARDIOLOGY ATTENDING NOTE Patient: Gregory Hoang Date [...] amenable for PCI. DAPHNE SHAHID MD Pager [phone] documented in this encounter Miscellaneous Notes Consult Note - Daphne Shahid MD - 07/14/2017 11:46 AM EST Heart Failure Service Inpatient Consult Note Gregory Hoang Date of : 1945 Age: 72 y.o. Today's date: 07/14/17 PCP: Lovely Vicente MD TECHNOLOGY APPLICATIONS TEACHER: None Place of Service: [facility] Reason for Consult: Dr. Webber has requested [...] performed by Manny Mcknight MD at [facility] OR ??? PRO CABG, ARTERIAL, SINGLE N/A 07/07/2017 @CABG, USING ARTERIAL GRAFT;SINGLE ARTERIAL GRAFT (WRVU 33.75) performed by Yuan Webber MD at [facility] OR ??? PRO CABG, ARTERY-VEIN, TWO N/A 07/07/2017 @CABG, TWO VENOUS GRAFTS & ARTERIAL GRAFT (WRVU 7.93) performed by Yuan Webber MD at [facility] OR ??? PRO COLONOSCOPY, REMV LESN, SNARE 01/16/2014 COLONOSCOPY, POLYPECTOMY, REMOVAL LESION BY SNARE performed by Nohemi Jaimes MD at [facility] ENDOSCOPY ??? PRO ENDOSCOPY W/VIDEO-ASST VEIN HARVEST, CABG Right 07/07/2017 ENDOSCOPIC HARVEST VEIN(S) FOR CABG (WRVU 0.31) performed by Yuan Webber MD at [facility] OR ??? PRO THYROIDECTOMY 03/28/2013 THYROIDECTOMY, TOTAL OR COMPLETE performed by Manny Mcknight MD at [facility] OR Outpt Meds: Current Outpatient Prescriptions Medication [...] following studies: EKG 07/14/17: NSR 75 bpm, CLOTH SHEARING SUPERVISOR anterior infarct, LAD CXR 07/11/17: FINDINGS: Sternotomy wires. The patient has been extubated, left chest tube removed, and Suncook-Suzi catheter removed since the 07/07/2017 study. Atelectasis [...] was discussed with Zehra. Jaden Kelley MD Senior Engineering Team Leader Pager [phone] CARDIOLOGY ATTENDING NOTE Patient: Gregory Hoang Date [...] heart failure clinic. DAPHNE SHAHID MD Pager [phone] Plan of Care - Alden Chavarria PTA [...] home with assist Alden Chavarria PTA Pager: [phone] Inpatient Physical Therapy Problem: Acute Rehab Services [...] sit/sit to supine -- Bed Mobility Goal, Hoke Level supervision required -- Bed Mobility Goal, [...] - 3 days -- Gait Training Goal, [place] Level supervision required -- Gait Training Goal, [...] days -- Transfer Training Goal, Activity Type mch-gw-ejdxi/coekg-qd-icd;rrm-ru-bjqtd/gwydy-cn-vja;toilet -- Transfer Train Goal, [place] Level supervision required -- Transfer Training Goal, [...] keeping present for 2 days per family. Art Specialist noted of frustrations, house keeping sent to room. Patient offered showered twice, refused. at bedside, frustrated that shower not complete, informed that patient had refused several times. requesting to see COMMUNITY MARKETING MANAGER, paged sent to Martha, will come to bedside (middle of consult). not willing to wait, Martha notified that family had gone home. Encouraged to come for morning rounds a t 8am. Diabetes team at bedside - insulin adjustments made. Call cabello in reach. Continue to monitor. PLAN MOVING FORWARD: Ambulate, dressing changes BID, Please change drsg at 4am per Martha COMMUNITY MARKETING MANAGER request. INDIVIDUALIZED FALL PREVENTION INTERVENTIONS: Patient-specific [...] levels on the lower side, 60ml of Jasper juice given after a FS of 80. [...] 07/13/17 0502 Interdisciplinary Rounds/Family Conf Participants case folder;dietitian/nutrition services;nursing;occupational therapy;patient;pharmacy;physical therapy;physician Plan of Care - [...] monitoring required during toileting and ADLs]: RN ASSISTED LIVING COORDINATOR Surveillance [continuous indirect monitoring]: Barrett Monitor CPG [...] Anticipated Discharge Disposition: home with assist Pager: [phone] CLARISSA SEGAL, PT 07/12/2017 Physical Therapy Rehabilitation [...] to sit/sit to supine Bed Mobility Goal, H[place] Level supervision required Bed Mobility Goal, Additional Goal adheres to psternal precautions for transfer Goal: Gait Training Goal Stand Alone Therapy Goal Outcome: Ongoing (Interventions Implemented as Appropriate) 07/12/17 1225 Gait Training Goal Gait Training Goal, Date Established 07/12/17 Gait Training Goal, Time to Achieve 2 - 3 days Gait Training Goal, Hoke Level supervision required Gait Training Goal, Assist [...] 3 days Transfer Training Goal, Activity Type ujg-nk-bkiwc/wxycy-pm-jkw;gqn-aq-vvjli/rskjm-am-agj;toilet Transfer Train Goal, H[place] Level supervision required Transfer Training Goal, Additional Goal adheres to sternal precautions during transfer Consult Note - Octavia Vaughn RN - 07/12/2017 10:50 AM EST [facility] CARDIAC REHABILITATION Gregory Hoang was seen today regarding participation in the outpatient Phase 2 Cardiac Rehabilitation at [facility]. The patient agrees to a [...] IV site, amio to other piv and IRRIGATION WORKER at bedside to help assess, IV removed. [...] staff, he stood and marched in place. [place] weak, wanting to sit back down. Remained [...] Health/Prescription Coverage: Primary Insurance: MEDICARE Secondary Insurance: [employer] [place] Prescription Coverage: yes Preferred Pharmacy: [facility] Other: none Primary Care Provider: Lovely Vicente MD [phone] Patient/Caregiver Goals of Treatment:live and get my breath back Potential Needs for Transition of Care: Rehab/SNF: [facility] Home Health: NA DME: TBD Dialysis: na Community Resources: available Transportation: yes Other: none Anticipated Barriers to Discharge/Special Considerations: none Plan: Likely SNF Rehab before home A member of the Care Management team will continue to monitor progress, follow for continuity of care and assist with transition of care planning. ERLIN Weiss Pager: [phone] Consult Note - Katerin Azul RN - [...] management and to provide a review of correction diabetes care. Diabetes History: Gregory Hoang has [...] CAD, HTN, CHF NYHA Class III-IV, MARIA VICTROIA on CPAP, BPH, thyroid carcinoma s/p thyroidectomy [...] potential to d/c gtt and start CF. 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 Monitoring - continue BG tid ac & hs Diet - low fat/low carb diet Exercise - weight-bearing exercise 30 min/day, as tolerated Thank you for allowing us to provide care for your patient W/E coverage, Dr. Jeane Tatum, pager [phone] Katerin Azul APRN Endocrinology Diabetes Management Pager [phone] Plan of Care - Stephanie Godoy, RN [...] Operative Note Patient Name: Gregory Hoang : [id number] MR#: [id number] Case Date: 07/07/2017 Surgeon: Surgeon(s) and Role: * Yuan Webber MD - Primary * Michael Drake PA - Physician Fagoting Machine Operator * Linda Flores PA - Physician Fagoting Machine Operator Preoperative diagnosis: 3VD Postoperative diagnosis: [...] Operative Note Patient Name: Gregory Hoang : [id number] MR#: [id number] Case Date: 07/07/2017 Surgeon: Surgeon(s) and Role: * Yuan Webber MD - Primary * Michael Drake PA - Physician Fagoting Machine Operator * Linda Flores PA - Physician Fagoting Machine Operator Preoperative diagnosis: 3VD Postoperative diagnosis: [...] (reference Cardiac: ACS (Acute Coronary Syndrome) (Adult) [facility] 07/07/17621 Cardiac: ACS (Acute Coronary Syndrome) Problems [...] MS3 [employer] [facility] Cardiology S1 (Pager [phone]) Plan of Care - Emelia Ibarra RN [...] at [facility] ENDOSCOPY ??? PRO THYROIDECTOMY 03/28/2013 THYROIDECTOMY, TOTAL OR COMPLETE performed by Manny Mcknight MD at [facility] MAIN OR Social History: Social History [...] with other involved physicians Yuan Webber MD [phone] Med Student Progress Note - Katty Hahn [...] or BiPAP - s/p lasix in the greens laborer, was net -1.5L - s/p plavix [...] FULL - Dispo: CVCC Katty Hahn, M3 [facility] Cardiology S1 (Pager [phone]) Plan of Care - Stephanie Godoy RN - 07/06/2017 5:00 AM EST Problem: Patient Care Overview Goal: Plan of Care Review 07/06/17 8036 Coping/Psychosocial Plan Of Care Reviewed With patient;family [...] in urinal without difficulty. Lasix given in greens laborer, 1.4 L out at this time. [...] Outcome: Ongoing (Interventions Implemented as Appropriate) 07/06/17 3396 Cardiac: ACS (Acute Coronary Syndrome) Problems Assessed [...] Vitaliy Nobles MD [facility] CARDIOLOGY [place], [place] [address] (Wo rk) 06/10/2022 Office Visit Dermatology Laura Scherer MD [facility] [address]-DERMAT OLOGY [place], [place] [address] (Wo rk) Scheduled Orders Name [...] procedure are i n the results section. ASBESTOS REMOVER SCAN 07/15/2017 12:00 Res ults for this [...] Routine 07/06/2017 7:40 Results f or this ([facility] [...] EXAMINATION: XR CHEST PA AND LATERAL ([employer]) CLINICAL HISTORY: CABG x 3 TECHNIQUE: PA [...] Teague APRN IMG DX ORDERABLES SCAN DOC: ASBESTOS REMOVER (07/15/2017 12:00 AM EST) Narrative 07/15/2017 12:00 [...] Signature POC Glucose 186 65 - 199 [facility] mg/dL [facility] Comment: [...] Organization Address City/State/ZIP Code Phon e Number [address] POCT Glucose (07/14/2017 7:52 AM EST) athologist Signature POC Glucose 126 65 - 199 [facility]dL [facility] Comment: [...] City/State/[place] [address] (ABNORMAL) Prothrombin Time (07/14/2017 4:46 AM EST) athologist Signature PT 26.4 (H) 11.8 - 14.0 [facility] LABORATORY INR 2.4 (H) 0.9 - 1.1 [facility] LABORATORY [...] [place] STACIE HEMATOLOGY ORDERABLES Performing Organization Address City/[facility]/ZIP Code Phon e Number [address] Potassium (07/14/2017 4:46 AM EST) athologist [facility] Potassium 4.3 3.5 - 5.0 [facility] mmol/L [facility] Comment: Please note: ??Patients [...] [place] STACIE CHEMISTRY ORDERABLES Performing Organization Address City/[facility]/ZIP Code Phon e Number [address] POCT Glucose (07/14/2017 4:34 AM EST) athologist Signature POC Glucose 115 65 - 199 [facility] mg/dL [facility] Comment: [...] City/State/[place] [address] POCT Glucose (07/13/2017 11:33 PM EST) athologist Signature POC Glucose 132 65 - 199 [facility] mg/dL [place] [...] City/State/[place] [address] POCT Glucose (07/13/2017 9:25 PM EST) athologist Signature POC Glucose 121 65 - 199 [facility] mg/dL [facility] LABORATORY [...] Organization Address City/State/ZIP Code Phon e Number [address] POCT Glucose (07/13/2017 4:55 PM EST) athologist Signature POC Glucose 79 65 - 199 [facility] mg/dL [facility] LABORATORY [...] City/State/[place] [address] POCT Glucose (07/13/2017 11:16 AM EST) athologist Signature POC Glucose 163 65 - [address] [facility] Comment: Supplemental ranges: <140 mg/dL before meals <180 mg/dL all other times of the day Specimen Anatomical Collection Method Collection Time Receive d Time (Source) Location / / Volume Laterality Blood specimen 07/13/2017 11:16 7 (specimen) AM EST 11:16 AM EST Yuan Webber MD POINT OF CARE TEST ORDERABLE S Performing Organization Address City/[facility]/[place] [address] POCT Glucose (07/13/2017 8:07 AM EST) athologist Signature POC Glucose 96 65 - [address] [facility] Comment: [...] City/State/[place] [address] (ABNORMAL) Prothrombin Time (07/13/2017 4:26 AM EST) P athologist Signature PT 20.8 (H) 11.8 - 14.0 [facility] LABORATORY INR 1.8 (H) 0.9 - 1.1 [facility]OR[facility]ORY [...] Agency Comment Spec In Lab Makayla Wilson [employer] ELECTRICAL ENGINEER HEMATOLOGY ORDERABLES Performing Organization Address City/State/[place] [address] (ABNORMAL) Basic Metabolic Panel (non-fasting) (07/13/2017 4:26 AM EST) P athologist Signature Glucose Lvl 95 65 - 199 [facility] mg/dL [facility] Comment: Diabetes: >=200 mg/dL plus symp toms BUN 25 (H) 10 - 20 mg/dL [facility] Creatinine 1.19 0.80 - [...] estions. Chloride 104 98 - 107 mmol/L [facility] CO2 26 22 - 31 mmol/L [facility] Anion Gap 13 5 - 15 mmol/L [facility] Calcium 7.7 (L) 8.5 - 10.5 mg/dL [facility] Estimated GFR 60 >=60 [facility] Comment: The reported eGFR should be multiplied b y 1.2 for patients. The MDRD is not an appropriate measure o f renal function for patients with body mass extremes or in patients with acute kidney failure. http://Hita.AmeriWorks/DHnkdep http://Hita.AmeriWorks/DHMCnkf Specimen Anatomical Collection Method Collection Time Receive d Time (Source) Location / / Volume Laterality Blood specimen 07/13/2017 4:26 AM 017 4:46 (specimen) EST AM EST Resulting Agency Comment Spec In Lab Makayla Wilson APRN CHEMISTRY ORDERABLES Performing Organization Address City/State/ZIP Code Phon e Number [address] POCT Glucose (07/13/2017 3:52 AM EST) athologist Signature POC Glucose 93 65 - 199 [facility] mg/dL [place] [...] Organization Address City/State/ZIP Code Phon e Number [address] POCT Glucose (07/13/2017 12:21 AM EST) athologist Signature POC Glucose 80 65 - 199 [facility] mg/dL [place] [...] CARE TEST ORDERABLE S Performing Organization Address City/[facility]/ZIP Code Phon e Number [address] POCT Glucose (07/12/2017 8:22 PM EST) athologist Signature POC Glucose 119 65 - 199 [facility] mg/dL [place] [...] City/State/[place] [address] POCT Glucose (07/12/2017 4:02 PM EST) athologist Signature POC Glucose 114 65 - 199 [facility] mg/dL [place] [...] City/State/[place] [address] POCT Glucose (07/12/2017 11:28 AM EST) athologist Signature POC Glucose 164 65 - 199 [facility] mg/dL [place] [...] City/State/[place] [address] POCT Glucose (07/12/2017 7:34 AM EST) athologist Signature POC Glucose 109 65 - 199 [facility] mg/dL [place] [...] Organization Address City/State/[place] [address] (ABNORMAL) Basic Metabolic Panel (non-fasting) (07/12/2017 4:11 AM EST) athologist Signature Glucose Lvl 92 65 - 199 [facility] mg/dL [facility] Comment: Diabetes: >=200 mg/dL plus symp toms BUN 31 (H) 10 - 20 mg/dL [facility] Creatinine 1.23 0.80 - [...] - 107 mmol/L [facility] CO2 Not Perf 22 - 31 mmol/L [facility] Comment: Add-on request. Sample too old to perform test. Anion Gap Not Calculated 5 - 15 mmol/L [facility] Calcium 8.1 (L) 8.5 - 10.5 mg/dL [facility] Estimated GFR 58 (L) >=60 [facility] Comment: The reported eGFR should be multiplied b y 1.2 for patients. The MDRD is not an appropriate measure o f renal function for patients with body mass extremes or in patients with acute kidney failure. http://Hita.AmeriWorks/DHnkdep http://Hita.AmeriWorks/DHnkf Specimen Anatomical Collection Method Collection Time Receive d Time (Source) Location / / Volume Laterality Blood specimen 07/12/2017 4:11 AM 017 8:57 (specimen) EST AM EST Resulting Agency Comment Spec In Lab [facility] CHEMISTR[facility] ORDERABLES Performing Organization Address [place]/[facility] [place] [address] (ABNORMAL) Prothrombin Time (07/12/2017 4:11 AM EST) athologist Signature PT 15.4 (H) 11.8 - 14.0 [facility] LABORATORY INR 1.2 (H) 0.9 - 1.1 [facility] [...] Resulting Agency Comment Spec In Lab Makayla [facility] HEMATOLOGY ORDERABLES Performing Organization Address City/[facility] [place] [address] Potassium (07/12/2017 4:11 AM EST) athologist Signature Potassium 3.8 3.5 - 5.0 [facility] mmol/L [facility] Comment: Please note: ??Patients [...] Organization Address City/State/ZIP Code Phon e Number [address] POCT Glucose (07/12/2017 4:10 AM EST) athologist Signature POC Glucose 90 65 - 199 [facility] mg/dL [facility] Comment: Supplemental ranges: <140 mg/dL before meals <180 mg/dL all other times of the day Specimen Anatomical Collection Method Collection Time Receive d Time (Source) Location / / Volume Laterality Blood specimen 07/12/2017 4:10 AM 017 4:10 (specimen) EST AM EST Yuan Webber MD POINT OF CARE TEST ORDERABLE S Performing Organization Address City/[facility]/ZIP Code Phon e Number [address] POCT Glucose (07/11/2017 11:57 PM EST) athologist Signature POC Glucose 98 65 - 199 [facility] mg/dL [facility] Comment: Supplemental ranges: <140 mg/dL before meals <180 mg/dL all other times of the day Specimen Anatomical Collection Method Collection Time Receive d Time (Source) Location / / Volume Laterality Blood specimen 07/11/2017 11:57 7 (specimen) PM EST 11:57 PM EST Yuan Webber MD POINT OF CARE TEST ORDERABLE S Performing Organization Address City/[facility]/[place] [address] POCT Glucose (07/11/2017 8:32 PM EST) athologist Signature POC Glucose 146 65 - 199 [facility] mg/dL [facility] [...] Address City/State/ZIP Code Phon e Number [facility] [id number] [facility] [address] XR Chest PA & [...] e xtubated, left chest tube removed, and Suncook-Suzi catheter removed since the study. Atelectasis at [...] e xtubated, left chest tube removed, and Suncook-Suzi catheter removed since the study. Atelectasis at [...] Glucose 223 (H) 65 - 199 [facility] mg/dL [facility] Comment: [...] Organization Address City/State/ZIP Code Phon e Number [address] POCT Glucose (07/11/2017 11:55 AM EST) athologist Signature POC Glucose 176 65 - 199 [facility] mg/dL [facility] Comment: Supplemental ranges: <140 mg/dL before meals <180 mg/dL all other times of the day Specimen Anatomical Collection Method Collection Time Receive d Time (Source) Location / / Volume Laterality Blood specimen 07/11/2017 11:55 7 (specimen) AM EST 11:55 AM EST uYan Webber MD POINT OF CARE TEST ORDERABLE S Performing Organization Address City/State/ZIP Code Phon e Number [address] POCT Glucose (07/11/2017 7:53 AM EST) athologist Signature POC Glucose 189 65 - 199 [place] [facility] mg/dL [place] [...] Organization Address City/State/ZIP Code Phon e Number [address] POCT Glucose (07/11/2017 4:22 AM EST) athologist Signature POC Glucose 151 65 - 199 [facility] mg/dL [facility] Comment: Supplemental ranges: <140 mg/dL before meals <180 mg/dL all other times of the day Specimen Anatomical Collection Method Collection Time Receive d Time (Source) Location / / Volume Laterality Blood specimen 07/11/2017 4:22 AM 017 4:22 (specimen) EST AM EST Yuan Webber MD POINT OF CARE TEST ORDERABLE S Performing Organization Address City/[facility]/[place] [address] Potassium (07/11/2017 2:20 AM EST) P athologist Signature Potassium 4.5 3.5 - 5.0 [facility] mmol/L [facility] Comment: Please note: ??Patients [...] Webber MD CHEMISTRY ORDERABLES Performing Organization Address City/[facility]/[place] [address] POCT Glucose (07/11/2017 12:17 AM EST) athologist Signature POC Glucose 162 65 - [address] [facility] Comment: Supplemental ranges: <140 mg/dL before meals <180 mg/dL all other times of the day Specimen Anatomical Collection Method Collection Time Receive d Time (Source) Location / / Volume Laterality Blood specimen 07/11/2017 12:17 7 (specimen) AM EST 12:17 AM EST Yuan Webber MD POINT OF CARE TEST ORDERABLE S Performing Organization Address City/[facility]/[place] [address] POCT Glucose (07/10/2017 8:47 PM EST) athologist Signature POC Glucose 191 65 - 199 [facility] mg/dL [facility] Comment: [...] Organization Address City/State/ZIP Code Phon e Number [address] POCT Glucose (07/10/2017 4:06 PM EST) athologist Signature POC Glucose 131 65 - [address] [facility] Comment: [...] Organization Address City/State/ZIP Code Phon e Number [address] POCT Glucose (07/10/2017 3:08 PM EST) athologist Signature POC Glucose 151 65 - [address] [facility] Comment: [...] Organization Address City/State/ZIP Code Phon e Number [address] POCT Glucose (07/10/2017 2:25 PM EST) P athologist Signature POC Glucose 146 65 - 199 [place] [facility] mg/dL [place] [...] Organization Address City/State/ZIP Code Phon e Number [address] POCT Glucose (07/10/2017 1:23 PM EST) athologist Signature POC Glucose 166 65 - 199 [facility] mg/dL [facility] Comment: [...] City/State/[place] [address] POCT Glucose (07/10/2017 11:52 AM EST) athologist Signature POC Glucose 157 65 - 199 [place] mg/dL [place] [...] Organization Address City/State/ZIP Code Phon e Number [address] POCT Glucose (07/10/2017 11:01 AM EST) athologist Signature POC Glucose 158 65 - 199 [place] mg/dL [place] [...] City/State/[place] [address] POCT Glucose (07/10/2017 9:54 AM EST) P athologist Signature POC Glucose 160 65 - 199 [place] mg/dL [facility] Comment: [...] City/State/[place] [address] POCT Glucose (07/10/2017 8:58 AM EST) P athologist Signature POC Glucose 183 65 - 199 [place] [place] mg/dL [facility] Comment: [...] City/State/[place] [address] POCT Glucose (07/10/2017 8:01 AM EST) P athologist Signature POC Glucose 173 65 - 199 [place] mg/dL [place] [...] CARE TEST ORDERABLE S Performing Organization Address City/[facility]/ZIP Code Phon e Number [address] POCT Glucose (07/10/2017 7:05 AM EST) athologist Signature POC Glucose 166 65 - 199 [facility] Comment: Supplemental ranges: <140 mg/dL before meals <180 mg/dL all other times of the day Specimen Anatomical Collection Method Collection Time Receive d Time (Source) Location / / Volume Laterality Blood specimen 07/10/2017 7:05 AM 017 7:05 (specimen) EST AM EST Yuan Webber MD POINT OF CARE TEST ORDERABLE S Performing Organization Address City/[facility]/ZIP Code Phon e Number [address] POCT Glucose (07/10/2017 6:00 AM EST) athologist Signature POC Glucose 162 65 - 199 [facility] Comment: [...] Organization Address City/State/ZIP Code Phon e Number [address] (ABNORMAL) Differential, Automated (07/10/2017 4:28 AM EST) [facility] gist Method Time Signature Neutrophils % 87.9 % [facility] Neutr Abs (ANC) 10.70 (H) 1.70 - [facility] 6.10 [facility] x10(3)/[facility] L LABORATORY Lymphocytes % 3.9 % [facility] Lymphocytes Abs 0.5 (L) 0.9 - 3.2 [facility] x10(3)/[facility] LABORATORY Monocytes % 7.0 % [facility] Monocyte Abs 0.8 0.3 - 0.9 [facility] x10(3)/[facility] LABORATORY Eosinophils % 0.3 % [facility] Eosinophils Abs 0.0 0.0 - 0.4 [facility] x10(3)/[facility] LABORATORY Basophils % 0.2 % [facility] Basophils Abs 0.0 0.0 - 0.1 [facility] x10(3)/[facility] LABORATORY Immature Gran % 0.70 % [facility] Comment: Immature granulocytes(IG's)percentage [...] Organization Address City/State/[place] [address] (ABNORMAL) Hemogram (07/10/2017 4:28 AM EST) Analysis Performed At Patho logist Time Signature WBC 12.2 (H) 4.0 - 9.5 [facility] x10(3)/[facility] LABORATORY RBC 3.31 (L) 4.58 - [facility] 5.54 [facility] x10(6)/[facility] LABORATORY Hemoglobin 9.8 (L) 13.7 - [place] 16.5 gm/dL [facility] Hematocrit 30.0 (L) 40.5 - [place] 48.5 % [facility] MCV 90.6 82.9 - [place] [facility] 93.1 [facility] LABORATORY MCH 29.6 27.5 - [place] 32.1 pg [facility] MCHC 32.7 32.0 - [place] 35.7 gm/dL [facility] Platelets 135 (L) 145 - 357 [facility] x10(3)/[facility] LABORATORY RDWSD 50.8 (H) 36.0 - [place] [facility] 45.0 [facility] LABORATORY RDWCV 15.4 (H) 11.4 - [facility] 13.8 % [facility] MPV 10.0 7.6 - 12.9 [facility] LABORATORY nRBC % Auto 0.0 % [facility] nRBC Abs Auto 0.000 0.000 - [place] 0.000 [facility] x10(3)/[facility] LABORATORY Specimen Anatomical Collection Method Collection Time Receive d Time (Source) Location / / Volume Laterality Blood specimen 07/10/2017 4:28 AM 017 4:36 (specimen) EST AM EST Resulting Agency Comment Spec In Lab Yuan Webber MD HEMATOLOGY ORDERABLES Performing Organization Address City/State/[place] [address] (ABNORMAL) Basic Metabolic Panel (non-fasting) (07/10/2017 4:28 AM EST) P athologist Signature Glucose Lvl 178 65 - 199 [facility] mg/dL [facility] Comment: Diabetes: >=200 mg/dL plus symp toms BUN 20 10 - 20 mg/dL [facility] Creatinine 1.19 0.80 - [...] estions. Chloride 107 98 - 107 mmol/L [facility] CO2 21 (L) 22 - 31 mmol/L [facility] Anion Gap 15 5 - 15 mmol/L [facility] Calcium 7.4 (L) 8.5 - 10.5 mg/dL [facility] LABORATORY Estimated GFR 60 >=60 [facility] Comment: The reported eGFR should be multiplied b y 1.2 for patients. The MDRD is not an appropriate measure o f renal function for patients with body mass extremes or in patients with acute kidney failure. http://paraBebes.com/DHnkdep http://paraBebes.com/DHMCnkf Specimen Anatomical Collection Method Collection Time Receive d Time (Source) Location / / Volume Laterality Blood specimen 07/10/2017 4:28 AM 017 4:36 (specimen) EST AM EST Resulting Agency Comment Spec In Lab Yuan Webber MD CHEMISTRY ORDERABLES Performing Organization Address City/State/ZIP Code Phon e Number [address] POCT Glucose (07/10/2017 4:26 AM EST) athologist Signature POC Glucose 176 65 - 199 [facility] mg/dL [facility] Comment: [...] City/State/[place] [address] (ABNORMAL) POCT Glucose (07/10/2017 3:06 AM EST) athologist Signature POC Glucose 204 (H) 65 - 199 [place] mg/dL [facility] Comment: [...] City/State/[place] [address] (ABNORMAL) POCT Glucose (07/10/2017 2:10 AM EST) athologist Signature POC Glucose 203 (H) 65 - [address] [facility] Comment: [...] City/State/[place] [address] POCT Glucose (07/10/2017 1:09 AM EST) athologist Signature POC Glucose 196 65 - [address] [facility] Comment: [...] City/State/[place] [address] POCT Glucose (07/10/2017 12:10 AM EST) athologist Signature POC Glucose 173 65 - 199 [place] mg/dL [place] [...] Organization Address City/State/ZIP Code Phon e Number [address] POCT Glucose (07/09/2017 11:01 PM EST) athologist Signature POC Glucose 140 65 - 199 [place] [facility] mg/dL [facility] Comment: [...] Organization Address City/State/ZIP Code Phon e Number [address] POCT Glucose (07/09/2017 10:05 PM EST) athologist Signature POC Glucose 144 65 - 199 [place] mg/dL [place] [...] Organization Address City/State/ZIP Code Phon e Number [address] POCT Glucose (07/09/2017 9:31 PM EST) athologist Signature POC Glucose 121 65 - 199 [place] [facility] mg/dL [place] [...] City/State/[place] [address] POCT Glucose (07/09/2017 9:03 PM EST) athologist Signature POC Glucose 98 65 - 199 [place] [facility] mg/dL [facility] Comment: [...] City/State/[place] [address] POCT Glucose (07/09/2017 8:09 PM EST) athologist Signature POC Glucose 117 65 - 199 [place] [facility] mg/dL [place] [...] City/State/[place] [address] POCT Glucose (07/09/2017 5:40 PM EST) athologist Signature POC Glucose 155 65 - 199 [place] [facility] mg/dL [facility] Comment: [...] Organization Address City/State/ZIP Code Phon e Number [address] POCT Glucose (07/09/2017 4:24 PM EST) athologist Signature POC Glucose 164 65 - 199 [place] mg/dL [place] [...] Organization Address City/State/ZIP Code Phon e Number [address] POCT Glucose (07/09/2017 3:19 PM EST) athologist Signature POC Glucose 166 65 - 199 [place] mg/dL [place] [...] City/State/[place] [address] POCT Glucose (07/09/2017 2:26 PM EST) athologist Signature POC Glucose 179 65 - 199 [facility] RYAN mg/dL [facility] [...] City/State/[place] [address] (ABNORMAL) POCT Glucose (07/09/2017 1:29 PM EST) athologist Signature POC Glucose 210 (H) 65 - 199 [place] mg/dL [place] [...] City/State/[place] [address] POCT Glucose (07/09/2017 12:20 PM EST) athologist Signature POC Glucose 172 65 - 199 [place] mg/dL [place] [...] City/State/[place] [address] POCT Glucose (07/09/2017 11:24 AM EST) athologist Signature POC Glucose 156 65 - 199 [place] mg/dL [place] [...] Organization Address City/State/ZIP Code Phon e Number [address] POCT Glucose (07/09/2017 11:11 AM EST) athologist Signature POC Glucose 172 65 - 199 [place] mg/dL [place] [...] City/State/[place] [address] POCT Glucose (07/09/2017 10:08 AM EST) athologist Signature POC Glucose 176 65 - [address] [facility] Comment: [...] City/State/[place] [address] POCT Glucose (07/09/2017 8:02 AM EST) athologist Signature POC Glucose 178 65 - 199 [facility] RYAN mg/dL [facility] [...] Organization Address City/State/[place] [address] (ABNORMAL) BLOOD GAS 2 ARTERIAL (07/09/2017 5:37 AM EST) Analysis Performed At Patho logist Time Signature pH Art 7.36 7.35 - [facility] 7.45 [facility] pCO2 Art 38 35 - 45 [facility] LABORATORY pO2 Art 79 (L) 85 - 104 [facility] LABORATORY HCO3 Art 20.9 20.0 - [facility] 26.0 [facility] mmol/[facility] LABORATORY BE Art -4.6 (L) -3.0 - 3.0 [facility] mmol/L [facility] Hgb Blood Gas 10.5 (L) 13.7 - [facility] 16.5 gm/dL [facility] O2HB Art 93.8 (L) 94.0 - [facility] 97.0 % [facility] COHB Art 0.3 % [facility] Comment: Nonsmokers: 0.5-1.5% COHB Smokers: Variable, but usually less than 10% Toxic: 20-30% COHB Lethal: Greater than 60% COHB METHB Art 0.6 <=1.5 % [facility] Na Whole Blood 141 135 - 145 mmol/L [facility] K Whole Blood 4.5 3.5 - 5.0 mmol/L [facility] Comment: Please note: Patients with WBC >100,000 may have falsely elevated Potassium levels. Contact the Clinical Chemistry L aboratory if there are any questions. ICa Whole Blood 1.01 (L) 1.15 - 1.33 mmol/L [facility] Comment: Note: ??Total bilirubin higher than 20 m g/dL may lead to falsely low ionized calcium. CL Whole Blood 113 (H) 98 - 107 mmol/L [facility] Gluc Whole Bld 175 65 - 199 mg/dL [facility] Comment: Diabetes: >=200 mg/dL plus symp toms. Lactate WB 1.0 0.5 - 2.2 mmol/L [facility] FIO2 Art 40 % [facility] PF Ratio Art 198 [facility] Specimen Anatomical Collection Method Collection Time Receive d Time (Source) Location / / Volume Laterality Blood specimen 07/09/2017 5:37 AM 017 5:37 (specimen) EST AM EST Yuan Webber MD CHEMISTRY ORDERABLES Performing Organization Address City/[facility]/ZIP Code Phon e Number [address] POCT Glucose (07/09/2017 3:27 AM EST) athologist Signature POC Glucose 192 65 - 199 [facility] Comment: Supplemental ranges: <140 mg/dL before meals <180 mg/dL all other times of the day Specimen Anatomical Collection Method Collection Time Receive d Time (Source) Location / / Volume Laterality Blood specimen 07/09/2017 3:27 AM 017 3:27 (specimen) EST AM EST Yuan Webber MD POINT OF CARE TEST ORDERABLE S Performing Organization Address City/[facility]/[place] [address] (ABNORMAL) Basic Metabolic Panel (non-fasting) (07/09/2017 2:30 AM EST) athologist Signature Glucose Lvl 179 65 - 199 [facility] mg/dL [facility] Comment: Diabetes: >=200 mg/dL plus symp toms BUN 17 10 - 20 mg/dL [facility] Creatinine 1.34 0.80 - [...] Chloride 111 (H) 98 - 107 mmol/L [facility] CO2 21 (L) 22 - 31 mmol/L [facility] Anion Gap 12 5 - 15 mmol/L [facility] Calcium 7.1 (L) 8.5 - 10.5 mg/dL [facility] Comment: result rechecked-JLK Estimated GFR 53 (L) >=60 [facility] Comment: The reported eGFR should be multiplied b y 1.2 for patients. The MDRD is not an appropriate measure o f renal function for patients with body mass extremes or in patients with acute kidney failure. http://paraBebes.com/DHnkdep http://paraBebes.com/DHMCnkf Specimen Anatomical Collection Method Collection Time Receive d Time (Source) Location / / Volume Laterality Blood specimen Venous Draw / 07/09/2017 2:30 AM 2016 2:42 (specimen) Unknown EST AM EST Resulting Agency Comment Spec In Lab Yuan Webber MD CHEMISTRY ORDERABLES Performing Organization Address City/State/[facility] [place] [address] (ABNORMAL) Potassium (07/09/2017 2:30 AM EST) P athologist Signature Potassium 5.1 (H) 3.5 - 5.0 [facility] mmol/L [facility] Comment: Please note: ??Patients [...] City/State/ZIP Code Phon e Number [place] [id number]OS[address] LAB[address]ORY Drive (ABNORMAL) Hemogram (07/09/2017 2:30 AM EST) Analysis Performed At Patho logist Time Signature WBC 12.5 (H) 4.0 - 9.5 [facility] x[facility](3[facility] LABORATORY RBC 3.38 (L) 4.58 - [place] RYAN 5.54 [facility] x10(6)/[facility] LABORATORY Hemoglobin 10.1 (L) 13.7 - [facility] 16.5 gm/dL [facility] Hematocrit 30.3 (L) 40.5 - [facility] 48.5 % [facility] MCV 89.6 82.9 [facility] 93.1 [facility] LABORATORY MCH 29.9 27.5 - [place] 32.1 pg [facility] MCHC 33.3 32.0 - [place] R[place] 35.7 gm/dL [facility] Platelets 127 (L) 145 - 357 [facility] x10(3)/[facility] LABORATORY RDWSD 49.3 (H) 36.0 - [place] RYAN 45.0 [facility] LABORATORY RDWCV 15.2 (H) 11.4 - [facility] R[facility]AN 13.8 % [facility] MPV 9.9 7.6 - 12.9 [facility] LABORATORY nRBC % Auto 0.0 % [facility] nRBC Abs Auto 0.000 0.000 - [facility] RYAN 0.000 [facility] x10(3)/[facility] LABORATORY Specimen Anatomical Collection Method Collection Time Receive d Time (Source) Location / / Volume Laterality Blood specimen 07/09/2017 2:30 AM 017 2:41 (specimen) EST AM EST Resulting Agency Comment Spec In Lab Yuan Webber MD HEMATOLOGY ORDERABLES Performing Organization Address City/State/[place] [address] [facility] [address] POCT Glucose (07/09/2017 2:10 AM EST) P athologist Signature POC Glucose 169 65 - 199 [place] [facility] mg/dL [facility] Comment: Supplemental ranges: <140 mg/dL before meals <180 mg/dL all other times of the day Specimen Anatomical Collection Method Collection Time Receive d Time (Source) Location / / Volume Laterality Blood specimen 07/09/2017 2:10 AM 017 2:10 (specimen) EST AM EST Yuan Webber MD POINT OF CARE TEST ORDERABLE S Performing Organization Address City/[facility]/[place] [address] POCT Glucose (07/09/2017 1:01 AM EST) P athologist Signature POC Glucose 173 65 - 199 [place] [facility] mg/dL [facility] Comment: [...] City/State/[place] [address] Blood culture (07/09/2017 12:40 AM EST) Patholo gist Method Time Signature Blood Culture No growth [place]INA ZHAORYAN at 5 days. [facility] Specimen Anatomical Collection Method Collection Time Receive d Time (Source) Location / / Volume Laterality Blood specimen STRUCTURE OF RIGHT 07/09/2017 12:40 3:58 (specimen) UPPER LIMB / AM EST AM EST Unknown Resulting Agency Comment Spec In Lab Yuan Webber MD MICROBIOLOGY - BLOOD ORDERAB LES Performing Organization Address City/State/[place] [address] Blood culture (07/09/2017 12:30 AM EST) Patholo gist Method Time Signature Blood Culture No growth KATALINA ZHAORYAN at 5 days. [facility] Specimen Anatomical Collection Method Collection Time Receive d Time (Source) Location / / Volume Laterality Blood specimen STRUCTURE OF LEFT 07/09/2017 12:30 1211/2016 3:59 (specimen) UPPER LIMB / AM EST AM EST Unknown Resulting Agency Comment Spec In Lab Yuan Webber MD MICROBIOLOGY - BLOOD ORDERAB LES Performing Organization Address City/[facility]/[place] [address] (ABNORMAL) Urinalysis Microscopic Exam (07/09/2017 12:05 AM EST) Analysis Performed At Patho logist Time Signature RBC UA 32 (H) 0 - 3 /HPF [facility] WBC UA 5 (H) 0 - 3 /HPF [facility] Squam Epith UA <1 <=4 /HPF [facility] Hyaline Cast 17 (H) 0 - 2 /LPF [facility] Gran Cast UA 1 (H) <=0 /LPF [facility] Uric Ac Bianca Rare (A) None /HPF [facility] Specimen (Source) Anatomical Collection Method Collection Time Re ceived Time Location / / Volume Laterality Urine specimen 07/09/2017 12:05 7 obtained via AM EST 12:39 AM EST indwelling urinary catheter (specimen) Resulting Agency Comment Spec In Lab Yuan Webber MD URINE ORDERABLES Performing Organization Address City/[facility]/[place] [address] (ABNORMAL) Urinalysis with reflex Culture (07/09/2017 12:05 AM EST) Patholo gist Method Time Signature Glucose UA Negative Negative [facility] Protein UA 30 (A) Negative [facility]dL [facility] Bilirubin UA Negative Negative [facility] Comment: Clinical correlation required for positi ve Urine Bilirubin results as false positive may occur with some drugs and d rug related products. If a false positive is suspected a serum total bili yeager should be considered if clinically indicated. Urobilinogen UA Normal Normal mg/dL [facility] pH UA 5.0 5.0 - 8.0 [facility] Blood UA Moderate (A) Negative mg/dL [facility] Ketones UA Negative Negative mg/dL [facility] Nitrite UA Negative Negative [facility] Leukocytes UA Negative Negative [facility] LABORATORY Appearance UA Hazy (A) Clear [facility] Spec [place] UA 1.025 1.002 - 1.030 [facility] Color UA Yellow Yellow [facility] Culture Reflexed No [facility] Specimen (Source) Anatomical Collection Method Collection Time Re ceived Time Location / / Volume Laterality Urine specimen 07/09/2017 12:05 7 obtained via AM EST 12:39 AM EST indwelling urinary catheter (specimen) Resulting Agency Comment Spec In Lab Yuan Webber MD URINE ORDERABLES Performing Organization Address City/[facility]/ZIP Code Phon e Number [address] POCT Glucose (07/08/2017 11:01 PM EST) athologist Signature POC Glucose 191 65 - 199 [facility] mg/dL [facility] Comment: [...] Organization Address City/State/ZIP Code Phon e Number [address] POCT Glucose (07/08/2017 10:04 PM EST) athologist Signature POC Glucose 198 65 - 199 [facility] mg[facility] Comment: [...] City/State/[place] [address] Prepare Albumin 5% in 250 mL (07/08/2017 8:49 PM EST) P athologist Signature Dispensed? Yes [facility] Specimen Anatomical Collection Method Collection Time Receive d Time (Source) Location / / Volume Laterality Blood specimen No Charge / 07/08/2017 8:49 PM 017 8:51 (specimen) Unknown EST PM EST Resulting Agency Comment Spec In Lab [facility] ORDERABLES Performing Organization Address City/[facility]/[place] [address] POCT Glucose (07/08/2017 8:28 PM EST) P athologist Signature POC Glucose 195 65 - 199 [facility] Comment: [...] City/State/[place] [address] (ABNORMAL) POCT Glucose (07/08/2017 7:13 PM EST) P athologist Signature POC Glucose 220 (H) 65 - 199 [facility] mg/dL [facility] Comment: [...] Organization Address City/State/[place] [address] POCT Glucose (07/08/2017 5:04 PM EST) P athologist Signature POC Glucose 147 65 - 199 [facility] mg/dL [facility] Comment: [...] City/State/[place] [address] (ABNORMAL) BLOOD GAS 2 ARTERIAL (07/08/2017 4:13 PM EST) Analysis Performed At Patho logist Time Signature pH Art 7.38 7.35 - [facility] 7.45 [facility] pCO2 Art 36 35 - 45 [facility] LABORATORY pO2 Art 91 85 - 104 [facility] LABORATORY HCO3 Art 20.9 20.0 - [facility] 26.0 [facility] mmol/L [facility] BE Art -4.2 (L) -3.0 - 3.0 [facility] mmol/L [facility] Hgb Blood Gas 11.7 (L) 13.7 - [facility] 16.5 gm/dL [facility] O2HB Art 95.1 94.0 - [facility] 97.0 % [facility] COHB Art 0.6 % [facility] Comment: Nonsmokers: 0.5-1.5% COHB Smokers: Variable, but usually less than 10% Toxic: 20-30% COHB Lethal: Greater than 60% COHB METHB Art 0.6 <=1.5 % [facility] Na Whole Blood 139 135 - 145 mmol/L [facility] K Whole Blood 4.2 3.5 - 5.0 mmol/L [facility] Comment: Please note: Patients with WBC >100,000 may have falsely elevated Potassium levels. Contact the Clinical Chemistry L aboratory if there are any questions. ICa Whole Blood 1.05 (L) 1.15 - 1.33 mmol/L [facility] Comment: Note: ??Total bilirubin higher than 20 m g/dL may lead to falsely low ionized calcium. CL Whole Blood 110 (H) 98 - 107 mmol/L [facility] Gluc Whole Bld 155 65 - 199 mg/dL [facility] Comment: Diabetes: >=200 mg/dL plus symp toms. Lactate WB 1.4 0.5 - 2.2 mmol/L [facility] FIO2 Art 40 % [facility] PF Ratio Art 228 [facility] Specimen Anatomical Collection Method Collection Time Receive d Time (Source) Location / / Volume Laterality Blood specimen 07/08/2017 4:13 PM 017 4:13 (specimen) EST PM EST Yuan Webber MD CHEMISTRY ORDERABLES Performing Organization Address City/[facility]/ZIP [facility] Phon e Number [address] POCT Glucose (07/08/2017 4:01 PM EST) athologist Signature POC Glucose 148 65 - 199 [facility] Comment: Supplemental ranges: <140 mg/dL before meals <180 mg/dL all other times of the day Specimen Anatomical Collection Method Collection Time Receive d Time (Source) Location / / Volume Laterality Blood specimen 07/08/2017 4:01 PM 017 4:01 (specimen) EST PM EST Yuan Webber MD POINT OF CARE TEST ORDERABLE S Performing Organization Address City/[facility] Code Phon e Number [address] POCT Glucose (07/08/2017 3:21 PM EST) athologist Signature POC Glucose 118 65 - 199 [facility]/dL [facility] Comment: [...] City/State/[place] [address] POCT Glucose (07/08/2017 2:01 PM EST) athologist Signature POC Glucose 129 65 - 199 [place] RY[place] mg/dL [place] [...] City/State/[place] [address] POCT Glucose (07/08/2017 11:53 AM EST) athologist Signature POC Glucose 156 65 - 199 K[place]AL[place] ZHAORYAN mg/dL [facility] Comment: [...] Organization Address City/State/ZIP Code Phon e Number [address] POCT Glucose (07/08/2017 11:04 AM EST) athologist Signature POC Glucose 181 65 - 199 [facility] R[facility] mg/dL [facility] Comment: Supplemental ranges: <140 mg/dL before meals <180 mg/dL all other times of the day Specimen Anatomical Collection Method Collection Time Receive d Time (Source) Location / / Volume Laterality Blood specimen 07/08/2017 11:04 7 (specimen) AM EST 11:04 AM EST Yuan Webber MD POINT OF CARE TEST ORDERABLE S Performing Organization Address City/[facility]/[place] [address] (ABNORMAL) POCT Glucose (07/08/2017 9:24 AM EST) athologist Signature POC Glucose 203 (H) 65 - 199 [facility] mg/dL [facility] Comment: Supplemental ranges: <140 mg/dL before meals <180 mg/dL all other times of the day Specimen Anatomical Collection Method Collection Time Receive d Time (Source) Location / / Volume Laterality Blood specimen 07/08/2017 9:24 AM 017 9:24 (specimen) EST AM EST Yuan Webber MD POINT OF CARE TEST ORDERABLE S Performing Organization Address City/[facility]/[place] [address] APTT (07/08/2017 8:40 AM EST) athologist Signature PTT 33 25 - 35 sec [facility] Comment: The recommended therapeutic range [...] Webber MD HEMATOLOGY ORDERABLES Performing Organization Address City/[facility]/[place] [address] (ABNORMAL) Prothrombin Time (07/08/2017 8:40 AM EST) athologist Signature PT 15.6 (H) 11.8 - 14.0 [facility] LABORATORY INR 1.3 (H) 0.9 - 1.1 [facility] [...] Webber MD HEMATOLOGY ORDERABLES Performing Organization Address City/[facility]/[place] [address] (ABNORMAL) POCT Glucose (07/08/2017 7:38 AM EST) P athologist Signature POC Glucose 232 (H) 65 - 199 [facility] Comment: [...] City/State/[place] [address] (ABNORMAL) POCT Glucose (07/08/2017 7:07 AM EST) P athologist Signature POC Glucose 234 (H) 65 - 199 [facility] mg/dL [facility] Comment: [...] City/State/[place] [address] (ABNORMAL) POCT Glucose (07/08/2017 6:04 AM EST) athologist Signature POC Glucose 225 (H) 65 - 199 [facility] mg/dL [facility] Comment: Supplemental ranges: <140 mg/dL before meals <180 mg/dL all other times of the day Specimen Anatomical Collection Method Collection Time Receive d Time (Source) Location / / Volume Laterality Blood specimen 07/08/2017 6:04 AM 017 6:04 (specimen) EST AM EST Yuan Webber MD POINT OF CARE TEST ORDERABLE S Performing Organization Address City/[facility]/[place] [address] (ABNORMAL) POCT Glucose (07/08/2017 5:31 AM EST) athologist Signature POC Glucose 216 (H) 65 - [address] [facility]dL [facility] Comment: [...] City/State/[place] [address] (ABNORMAL) POCT Glucose (07/08/2017 4:52 AM EST) athologist Signature POC Glucose 257 (H) 65 - [address] [facility] mg/dL [facility] Comment: [...] Organization Address City/State/[place] [address] (ABNORMAL) BLOOD GAS 2 ARTERIAL (07/08/2017 4:04 AM EST) Analysis Performed At Patho logist Time Signature pH Art 7.30 (L) 7.35 - [facility] 7.45 [facility] pCO2 Art 41 35 - 45 [facility] mmHg [facility] pO2 Art 83 (L) 85 - 104 [facility] LABORATORY HCO3 Art 19.6 (L) 20.0 - [facility] 26.0 [facility] mmol/[facility] LABORATORY BE Art -6.8 (L) -3.0 - 3.0 [facility] mmol/L [facility] Hgb Blood Gas 12.2 (L) 13.7 - [facility] 16.5 gm/dL [facility] O2HB Art 93.5 (L) 94.0 - [facility] 97.0 % [facility] COHB Art 0.4 % [facility] Comment: Nonsmokers: 0.5-1.5% COHB Smokers: Variable, but usually less than 10% Toxic: 20-30% COHB Lethal: Greater than 60% COHB METHB Art 0.8 <=1.5 % [facility] Na Whole Blood 138 135 - 145 mmol/L [facility] K Whole Blood 4.4 3.5 - 5.0 mmol/L [facility] Comment: Please note: Patients with WBC >100,000 may have falsely elevated Potassium levels. Contact the Clinical Chemistry L aboratory if there are any questions. ICa Whole Blood 1.05 (L) 1.15 - 1.33 mmol/L [facility] Comment: Note: ??Total bilirubin higher than 20 m g/dL may lead to falsely low ionized calcium. CL Whole Blood 107 98 - 107 mmol/L [facility] Gluc Whole Bld 274 (H) 65 - 199 mg/dL [facility] Comment: Diabetes: >=200 mg/dL plus symp toms. Lactate WB 4.4 (Critical) 0.5 - 2.2 mmol/L [facility] Comment: Noted by electrical and instrument technician. FIO2 Art 40 % [facility] PF Ratio Art 208 [facility] LABORATORY Specimen Anatomical Collection Method Collection Time Receive d Time (Source) Location / / Volume Laterality Blood specimen 07/08/2017 4:04 AM 017 4:04 (specimen) EST AM EST Daphne Shahid MD CHEMISTRY ORDERABLES Performing Organization Address City/[facility]/ZIP Code Phon e Number [address] Scan, Peripheral Blood (07/08/2017 4:00 AM EST) P athologist Signature Plat Estimate Normal [facility] RBC Morphology Normal [facility] Specimen Anatomical Collection Method Collection Time Receive d Time (Source) Location / / Volume Laterality Blood specimen 07/08/2017 4:00 AM 017 4:09 (specimen) EST AM EST Resulting Agency Comment Spec In Lab Yuan Webber MD HEMATOLOGY ORDERABLES Performing Organization Address City/[facility]/ZIP Code Phon e Number [address] (ABNORMAL) Differential, Automated (07/08/2017 4:00 AM EST) Patholo gist Method Time Signature Neutrophils % 85.4 % [facility] Neutr Abs (ANC) 16.07 (H) 1.70 - [facility] 6.10 [facility] x10(3)/[facility] L LABORATORY Lymphocytes % 3.5 % [facility] Lymphocytes Abs 0.6 (L) 0.9 - 3.2 [facility] x10(3)/[facility] LABORATORY Monocytes % 10.4 % [facility] Monocyte Abs 2.0 (H) 0.3 - 0.9 [facility] x10(3)/[facility] LABORATORY Eosinophils % 0.0 % [facility] Eosinophils Abs 0.0 0.0 - 0.4 [facility] x10(3)/[facility] LABORATORY Basophils % 0.1 % [facility] Basophils Abs 0.0 0.0 - 0.1 [facility] x10(3)/[facility] LABORATORY Immature Gran % 0.60 % [...] City/State/ZIP Code Phon e Number [place] [id number] (ABNORMAL) Hemogram (07/08/2017 4:00 AM EST) Analysis Performed At Patho logist Time Signature WBC 18.8 (H) 4.0 - 9.5 [facility] x10(3)/[facility] LABORATORY RBC 4.00 (L) 4.58 - [facility] R[place]AN 5.54 [facility] x10(6)/[facility] LABORATORY Hemoglobin 11.9 (L) [facility].7 [facility]/dL [facility] LABORATORY Hematocrit 35.9 (L) 40.5 - [facility] 48.5 % [facility] LABORATORY MCV 89.[address] [facility].1 fL [facility] LAB[facility]ATORY MCH 29.8 27.5 - [place] [facility] 32.1 pg [facility] LABORATORY MCHC 33.1 32.0 - [facility] 35.7 gm/dL [facility] LABORATORY Platelets 232 145 - 357 [facility] x10(3)/[facility] LABORATORY RDWSD 47.6 (H) 36.0 - [facility] 45.0 [facility] LABORATORY RDWCV 14.5 (H) 11.4 - [facility] 13.8 % [facility] LABORATORY MPV 9.5 7.6 - 12.9 [facility] LABORATORY nRBC % Auto 0.0 % [facility] nRBC Abs Auto 0.000 0.000 - [facility] 0.000 [facility] x10(3)/[facility] LABORATORY Specimen Anatomical Collection Method Collection Time Receive d Time (Source) Location / / Volume Laterality Blood specimen 07/08/2017 4:00 AM 017 4:09 (specimen) EST AM EST Resulting Agency Comment Spec In Lab Yuan Webber MD HEMATOLOGY ORDERABLES Performing Organization Address City/[facility]/[place] [address] (ABNORMAL) Electrolytes panel (07/08/2017 4:00 AM EST) P athologist Signature Sodium 139 135 - 145 [facility] mmol/L [facility] LABORATORY Potassium 4.7 3.5 - 5.0 [facility] mmol/[facility] LABORATORY Comment: result rechecked-JLK Please note: ??Patients with WBC >100,00 0 may have falsely elevated Potassium levels. ??For accurate Potassium quantif ication in these patients send serum separator tube (gold top) for subsequent determinations. ??Contact the Clinical Chemistry Laboratory if there are any qu estions. Chloride 104 98 - 107 mmol/L [facility] CO2 21 (L) 22 - 31 mmol/L [facility] Anion Gap 14 5 - 15 mmol/L [facility] LABORATORY Specimen Anatomical Collection Method Collection Time Receive d Time (Source) Location / / Volume Laterality Blood specimen 07/08/2017 4:00 AM 017 4:10 (specimen) EST AM EST Resulting Agency Comment Spec In Lab Yuan Webber MD CHEMISTRY ORDERABLES Performing Organization Address City/[facility]/ZIP [facility] [place] [place] [address] (ABNORMAL) Cardiac Enzymes (LEB/CGP) (07/08/2017 4:00 AM EST) athologist Signature Troponin-T 1.88 (H) 0.00 - [facility] 0.[facility] ng/mL [facility] Comment: The 99th percentile [...] additional sample may be indicated. Reference: Third Kearsarge Definition of Myocardial Infarction. Journal of the [place] College [employer] 2012;60:1581-98 CK, Total 413 (H) 0 - 200 unit/L [facility] Comment: result rechecked-K Specimen Anatomical Collection Method Collection Time Receive d Time (Source) Location / / Volume Laterality Blood specimen 07/08/2017 4:00 AM 017 4:09 (specimen) EST AM EST Resulting Agency Comment Spec In Lab Yuan Webber MD CHEMISTRY ORDERABLES Performing Organization Address City/State/[place] [address] (ABNORMAL) Glucose, fasting (07/08/2017 4:00 AM EST) athologist Signature Glucose 287 (H) 65 - 99 [facility] Fasting mg/dL [facility] Comment: ?Fasting* Glucose Interpretive [...] of Diabetes Mellitus, Position Statement from the [place] [employer]. ??Diabete s Care, Volume 33, Supplement 1, Jul 2009 Specimen Anatomical Collection Method Collection Time Receive d Time (Source) Location / / Volume Laterality Blood specimen 07/08/2017 4:00 AM 017 4:09 (specimen) EST AM EST Resulting Agency Comment Spec In Lab Yuan Webber MD CHEMISTRY ORDERABLES Performing Organization Address City/[facility] [place] [address] (ABNORMAL) Creatinine (07/08/2017 4:00 AM EST) Analysis Performed At [facility] Time Signature Creatinine 1.55 (H) 0.80 - [facility] 1.50 mg/dL [facility] LABORATORY Estimated GFR 44 (L) >=60 [facility] Comment: The reported eGFR should be multiplied b y 1.2 for patients. The MDRD is not an appropriate measure o f renal function for patients with body mass extremes or in patients with acute kidney failure. http://Hita.[employer]meriWorks/DHnkdep http://Hita.[employer]/DHMCnkf Specimen Anatomical Collection Method Collection Time Receive d Time (Source) Location / / Volume Laterality Blood specimen 07/08/2017 4:00 AM 017 4:09 (specimen) EST AM EST Resulting Agency Comment Spec In Lab Yuan Webber MD CHEMISTRY ORDERABLES Performing Organization Address City/[facility]/[place] [address] BUN (07/08/2017 4:00 AM EST) athologist Signature BUN 16 10 - 20 [facility] mg/dL [facility] LABORATORY Specimen Anatomical Collection Method Collection Time Receive d Time (Source) Location / / Volume Laterality Blood specimen 07/08/2017 4:00 AM 017 4:09 (specimen) EST AM EST Resulting Agency Comment Spec In Lab Yuan eWbber MD CHEMISTRY ORDERABLES Performing Organization Address City/State/[place] [address] (ABNORMAL) POCT Glucose (07/08/2017 3:00 AM EST) athologist Signature POC Glucose 273 (H) 65 - [address] [facility] Comment: Supplemental ranges: <140 mg/dL before meals <180 mg/dL all other times of the day Specimen Anatomical Collection Method Collection Time Receive d Time (Source) Location / / Volume Laterality Blood specimen 07/08/2017 3:00 AM 017 3:00 (specimen) EST AM EST Daphne Shahid MD POINT OF CARE TEST ORDERABLE S Performing Organization Address City/[facility]/[place] [address] (ABNORMAL) POCT Glucose (07/08/2017 1:57 AM EST) athologist Signature POC Glucose 288 (H) 65 - [address] [facility]dL [facility] Comment: [...] City/State/[place] [address] (ABNORMAL) POCT Glucose (07/08/2017 1:01 AM EST) athologist Signature POC Glucose 315 (H) 65 - 199 [facility] mg/dL [facility] Comment: [...] Organization Address City/State/[place] [address] (ABNORMAL) BLOOD GAS 2 ARTERIAL (07/08/2017 12:09 AM EST) athologist Signature pH Art 7.26 7.35 - [facility] (Critical) 7.45 [facility] Comment: Noted by electrical and instrument technician. pCO2 Art 41 35 - 45 mmHg [facility] LABORATORY pO2 Art 96 85 - 104 mmHg [facility] LAB[facility] HCO3 Art 17.7 (L) 20.0 - 26.0 mmol/L [facility] LABORAT[facility] BE Art -9.4 (L) -3.0 - 3.0 mmol/L [facility] Hgb Blood Gas 12.4 (L) 13.7 - 16.5 gm/dL [facility] LABORATORY O2HB Art 94.7 94.0 - 97.0 % [facility] COHB Art 0.2 % [facility] Comment: Nonsmokers: 0.5-1.5% COHB Smokers: Variable, but usually less than 10% Toxic: 20-30% COHB Lethal: Greater than 60% COHB METHB Art 0.6 <=1.5 % [facility] Na Whole Blood 141 135 - 145 mmol/L [facility] K Whole Blood 3.5 3.5 - 5.0 mmol/L [facility] Comment: Please note: Patients with WBC >100,000 may have falsely elevated Potassium levels. Contact the Clinical Chemistry L aboratory if there are any questions. ICa Whole Blood 1.03 (L) 1.15 - 1.33 mmol/L [facility] Comment: Note: ??Total bilirubin higher than 20 m g/dL may lead to falsely low ionized calcium. CL Whole Blood 109 (H) 98 - 107 mmol/L [facility] Gluc Whole Bld 315 (H) 65 - 199 mg/dL [facility] LAB[facility] Comment: Diabetes: >=200 mg/dL plus symp toms. Lactate WB 7.6 (Critical) 0.5 - 2.2 mmol/L [facility] Comment: Noted by electrical and instrument technician. FIO2 Art 40 % [facility] PF Ratio Art 240 [facility] LABORATORY Specimen Anatomical Collection Method Collection Time Receive d Time (Source) Location / / Volume Laterality Blood specimen Arterial Draw / 07/08/2017 12:09 2016 5:31 (specimen) Unknown AM EST AM EST Resulting Agency Comment Spec In Lab Samy Maldonado MD CHEMISTRY ORDERABLES Performing Organization Address City/State/[place] [address] (ABNORMAL) POCT Glucose (07/07/2017 10:56 PM EST) P athologist Signature POC Glucose 292 (H) 65 - 199 [facility] mg/dL [facility] Comment: Supplemental ranges: <140 mg/dL before meals <180 mg/dL all other times of the day Specimen Anatomical Collection Method Collection Time Receive d Time (Source) Location / / Volume Laterality Blood specimen 07/07/2017 10:56 7 (specimen) PM EST 10:56 PM EST Daphne Shahid MD POINT OF CARE TEST ORDERABLE S Performing Organization Address City/[facility]/[place] [address] (ABNORMAL) BLOOD GAS 2 ARTERIAL (07/07/2017 10:04 PM EST) P athologist Signature pH Art 7.22 7.35 - [facility] (Critical) 7.45 [facility] Comment: Noted by electrical and instrument technician. pCO2 Art 42 35 - 45 mmHg [facility] LABORATORY pO2 Art 94 85 - 104 mmHg [facility] HCO3 Art 16.9 (L) 20.0 - 26.0 mmol/L [facility] BE Art -10.7 (L) -3.0 - 3.0 mmol/L [facility] Hgb Blood Gas 13.0 (L) 13.7 - 16.5 gm/dL [facility] O2HB Art 93.8 (L) 94.0 - 97.0 % [facility] COHB Art 0.7 % [facility] Comment: Nonsmokers: 0.5-1.5% COHB Smokers: Variable, but usually less than 10% Toxic: 20-30% COHB Lethal: Greater than 60% COHB METHB Art 0.7 <=1.5 % [facility] Na Whole Blood 140 135 - 145 mmol/L [facility] K Whole Blood 3.3 (L) 3.5 - 5.0 mmol/L [facility] Comment: Please note: Patients with WBC >100,000 may have falsely elevated Potassium levels. Contact the Clinical Chemistry L aboratory if there are any questions. ICa Whole Blood 1.07 (L) 1.15 - 1.33 mmol/L [facility] Comment: Note: ??Total bilirubin higher than 20 m g/dL may lead to falsely low ionized calcium. CL Whole Blood 107 98 - 107 mmol/L [facility] Gluc Whole Bld 304 (H) 65 - 199 mg/dL [facility] Comment: Diabetes: >=200 mg/dL plus symp toms. Lactate WB 8.2 (Critical) 0.5 - 2.2 mmol/L [facility] Comment: Noted by electrical and instrument technician. FIO2 Art 40 % [facility] PF Ratio Art 235 [facility] LABORATORY Specimen Anatomical Collection Method Collection Time Receive d Time (Source) Location / / Volume Laterality Blood specimen 07/07/2017 10:04 7 (specimen) PM EST 10:04 PM EST Daphne Shahid MD CHEMISTRY ORDERABLES Performing Organization Address City/[facility]/[place] [address] (ABNORMAL) Hemoglobin (07/07/2017 10:00 PM EST) athologist Signature Hemoglobin 12.8 (L) 13.7 - [facility] 16.5 gm/dL [facility] Specimen Anatomical Collection Method Collection Time Receive d Time (Source) Location / / Volume Laterality Blood specimen 07/07/2017 10:00 7 (specimen) PM EST 10:13 PM EST Resulting Agency Comment Spec In Lab Yuan Webber MD HEMATOLOGY ORDERABLES Performing Organization Address City/[facility] [place] [address] (ABNORMAL) Potassium (07/07/2017 10:00 PM EST) athologist Signature Potassium 3.4 (L) 3.5 - 5.0 [facility] mmol/L [facility] Comment: Please note: ??Patients [...] Webber MD CHEMISTRY ORDERABLES Performing Organization Address City/[facility]/ZIP [facility] [place] [address] (ABNORMAL) POCT Glucose (07/07/2017 8:49 PM EST) athologist Signature POC Glucose 241 (H) 65 - 199 [facility] Comment: Supplemental ranges: <140 mg/dL before meals <180 mg/dL all other times of the day Specimen Anatomical Collection Method Collection Time Receive d Time (Source) Location / / Volume Laterality Blood specimen 07/07/2017 8:49 PM 017 8:49 (specimen) EST PM EST Daphne Shahid MD POINT OF CARE TEST ORDERABLE S Performing Organization Address City/[facility]/[place] [address] Prepare Albumin 5% in 250 mL (07/07/2017 8:03 PM EST) P athologist Signature Dispensed? Yes [facility] Specimen Anatomical Collection Method Collection Time Receive d Time (Source) Location / / Volume Laterality Blood specimen No Charge / 07/07/2017 8:03 PM 017 8:04 (specimen) Unknown EST PM EST Resulting Agency Comment Spec In Lab Michael BROWN BLOOD BANK ORDERABLES Performing Organization Address [place]/[facility] [place] [address] EKG 12 Lead (07/07/2017 7:17 PM EST) Component Value Ref Range Test Analysis Performed Pathologis t Method Time At Signature Ventricular rate 75 BPM MUSE SYSTEM Atrial Rate 75 BPM MUSE SYSTEM P-R Interval 168 ms MUSE SYSTEM QRS Duration 104 ms MUSE SYSTEM Q-T Interval 462 ms MUSE SYSTEM QTC Calculated 515 ms MUSE SYSTEM (Bezet) Calculated P [place] 52 degrees MUSE SYSTEM Calculated R [place] -40 degrees MUSE SYSTEM Calculated T [place] 39 degrees MUSE SYSTEM INTERPRETATION Normal sinus [...] Webber MD ECG ORDERABLES Performing Organization Address City/[facility]/ZIP Code Phon e Number MUSE [...] GAS 2 ARTERIAL (07/07/2017 6:57 PM EST) P athologist Signature pH Art 7.21 7.35 - [facility] (Critical) [address] [place] [address] LABORATORY Comment: Noted by electrical and instrument technician. pCO2 Art 50 (H) 35 - 45 mmHg [facility]OR[facility]ORY pO2 Art 238 (H) 85 - 104 mmHg [facility] HCO3 Art 19.8 (L) 20.0 - 26.0 mmol/L [facility] BE Art -8.1 (L) -3.0 - 3.0 mmol/L [facility] Hgb Blood Gas 12.8 (L) 13.7 - 16.5 gm/dL [facility] O2HB Art 97.5 (H) 94.0 - 97.0 % [facility] COHB Art 0.5 % [facility] Comment: Nonsmokers: 0.5-1.5% COHB Smokers: Variable, but usually less than 10% Toxic: 20-30% COHB Lethal: Greater than 60% COHB METHB Art 0.7 <=1.5 % [facility] Na Whole Blood 140 135 - 145 mmol/L [facility] K Whole Blood 3.0 (Critical) 3.5 - 5.0 mmol/L [facility] Comment: Noted by electrical and instrument technician. Please note: Patients with WBC >100,000 may have falsely elevated Potassium levels. Contact the Clinical Chemistry L aboratory if there are any questions. ICa Whole Blood 1.07 (L) 1.15 - 1.33 mmol/L [facility] Comment: Note: ??Total bilirubin higher than 20 m g/dL may lead to falsely low ionized calcium. CL Whole Blood 107 98 - 107 mmol/L [facility] Gluc Whole Bld 270 (H) 65 - 199 mg/dL [facility] Comment: Diabetes: >=200 mg/dL plus symp toms. Lactate WB 4.9 (Critical) 0.5 - 2.2 mmol/L [facility] Comment: Noted by electrical and instrument technician. FIO2 Art 100 % [facility] PF Ratio Art 238 [facility] LABORATORY Specimen Anatomical Collection Method Collection Time Receive d Time (Source) Location / / Volume Laterality Blood specimen 07/07/2017 6:57 PM 017 6:57 (specimen) EST PM EST Daphne Shahid MD CHEMISTRY ORDERABLES Performing Organization Address City/State/[place] [address] (ABNORMAL) BLOOD GAS 2 ARTERIAL (07/07/2017 5:31 PM EST) athologist Signature pH Art 7.29 7.35 - [facility] (Critical) 7.45 [facility] Comment: Noted by electrical and instrument technician. pCO2 Art 48 (H) 35 - 45 mmHg [facility]ORY pO2 Art 137 (H) 85 - 104 mmHg [facility] HCO3 Art 22.4 20.0 - 26.0 mmol/L [facility] BE Art -4.3 (L) -3.0 - 3.0 mmol/L [facility]OR[facility] Hgb Blood Gas 10.0 (L) 13.7 - 16.5 gm/dL [facility]OR[facility]ORY O2HB Art 97.3 (H) 94.0 - 97.0 % [facility] COHB Art 0.3 % [facility] Comment: Nonsmokers: 0.5-1.5% COHB Smokers: Variable, but usually less than 10% Toxic: 20-30% COHB Lethal: Greater than 60% COHB METHB Art 0.3 <=1.5 % [facility] Na Whole Blood 132 (L) 135 - 145 mmol/L [facility] K Whole Blood 4.0 3.5 - 5.0 mmol/L [facility] Comment: Please note: Patients with WBC >100,000 may have falsely elevated Potassium levels. Contact the Clinical Chemistry L aboratory if there are any questions. ICa Whole Blood 1.14 (L) 1.15 - 1.33 mmol/L [facility] Comment: Note: ??Total bilirubin higher than 20 m g/dL may lead to falsely low ionized calcium. CL Whole Blood 105 98 - 107 mmol/L [facility] Gluc Whole Bld 293 (H) 65 - 199 mg/dL [facility] LAB[facility] Comment: Diabetes: >=200 mg/dL plus symp toms. Lactate WB 3.1 (H) 0.5 - 2.2 mmol/L [facility] LABOR[facility]ORY Specimen Anatomical Collection Method Collection Time Receive d Time (Source) Location / / Volume Laterality Blood specimen 07/07/2017 5:31 PM 017 5:31 (specimen) EST PM EST Daphne Shahid MD CHEMISTRY ORDERABLES Performing Organization Address City/[facility] Phon e Number [address] Fibrinogen (07/07/2017 5:30 PM EST) athologist Signature Fibrinogen 224 180 - 510 [facility] mg/dL [facility] LABORATORY Comment: Called by: [facility], Read back by: Monica Campos on/OR16, Date/Time:07/07/17 [...] Perez MD HEMATOLOGY ORDERABLES Performing Organization Address City/[facility] Phon e Number [address] APTT (07/07/2017 5:30 PM EST) P athologist Signature PTT 30 25 - 35 sec [facility] Comment: The recommended therapeutic range [...] Perez MD HEMATOLOGY ORDERABLES Performing Organization Address City/[facility]/[place] [address] (ABNORMAL) Prothrombin Time (07/07/2017 5:30 PM EST) P athologist Signature PT 19.0 (H) 11.8 - 14.0 [facility] LABORATORY INR 1.6 (H) 0.9 - 1.1 [facility] LABORATORY [...] Perez MD HEMATOLOGY ORDERABLES Performing Organization Address City/[facility]/[place] [address] (ABNORMAL) Hemogram (07/07/2017 5:30 PM EST) P athologist Signature WBC 19.6 (H) 4.0 - 9.5 [facility] x10(3)/[facility] LABORATORY RBC 3.08 (L) 4.58 - [facility] 5.54 [facility] x10(6)/[facility] LABORATORY Hemoglobin 9.2 (L) 13.7 - [facility] 16.5 gm/dL [facility] LABORATORY Hematocrit 28.0 (L) 40.5 - [facility] 48.5 % [facility] LABORATORY Comment: This result has been called to MONICA WEINSTEIN LUISA by DONALD GROSSMAN on 07 07 2017 at 1759, and has been read back. MCV 90.9 82.9 - 93.1 fL [facility] MCH 29.9 27.5 - 32.1 pg [facility] MCHC 32.9 32.0 - 35.7 gm/dL [facility] LABORATORY Platelets 155 145 - 357 x10(3)/[facility] LABORATORY RDWSD 46.5 (H) 36.0 - 45.0 fL [facility] RDWCV 14.1 (H) 11.4 - 13.8 % [facility] LABORATORY MPV 9.5 7.6 - 12.9 fL [facility] LABORATORY nRBC % Auto 0.0 % [facility] LABORATORY nRBC Abs Auto 0.000 0.000 - 0.000 x10(3)/[facility] LABORATORY Specimen Anatomical Collection Method Collection Time Receive d Time (Source) Location / / Volume Laterality Blood specimen 07/07/2017 5:30 PM 017 5:34 (specimen) EST PM EST Resulting Agency Comment Spec In Lab Yifan Perez MD HEMATOLOGY ORDERABLES Performing Organization Address City/[facility]/ZIP [facility] Phon e Number [address] Prepare Platelets, Apheresis (07/07/2017 5:00 PM EST) P athologist Signature Dispensed? Yes [facility] Specimen Anatomical Collection Method Collection Time Receive d Time (Source) Location / / Volume Laterality Blood specimen 07/07/2017 5:00 PM 017 4:58 (specimen) EST PM EST Daphne Shahid MD BLOOD BANK ORDERABLES Performing Organization Address City/[facility]/ZIP [facility] [place] Phon e Number [address] Platelet count (07/07/2017 4:55 PM EST) P athologist Signature Platelets 177 145 - 357 [facility] x10(3)/[facility] LABORATORY Plat Immature 1.5 0.0 - 7.4 [facility] LABORATORY Comment: Limitation of the Immature Platelet Frac tion (IPF)-May be less reliable when the platelet count is less than 25a079/u L due to statistical imprecision. The IPF [...] in a decreased state of production. References: [employer] The Clinical Value of the Immature Platelet Fraction (IPF) in Cell Recovery Document Number 10-1143 12/2010 [employer] The Role of the Imm ature [...] Organization Address City/State/[place] [address] (ABNORMAL) Hemoglobin and Hematocrit, blood (07/07/2017 4:55 PM EST) athologist Signature Hemoglobin 9.1 (L) 13.7 - 16.5 [facility] gm/dL [facility] LABORATORY Comment: This result has been called to MALKA MORAN by DONALD GROSSMAN on 07 07 2017 at 1734, and has been read back. Hematocrit 26.6 (L) 40.5 - 48.5 % [facility] LABORATORY Comment: This result has been called to MALKA MORAN by DONALD GROSSMAN on 07 07 2017 at 1734, and has been read back. Specimen Anatomical Collection Method Collection Time Receive d Time (Source) Location / / Volume Laterality Blood specimen 07/07/2017 4:55 PM 12/13/2 017 5:13 (specimen) EST PM EST Resulting Agency Comment Spec In Lab Daphne Shahid MD HEMATOLOGY ORDERABLES Performing Organization Address City/State/[place] [address] (ABNORMAL) BLOOD GAS 2 ARTERIAL (07/07/2017 4:38 PM EST) Analysis Performed At Patho logist Time Signature pH Art 7.37 7.35 - [facility] 7.45 [facility] LABORATORY pCO2 Art 44 35 - 45 [facility] mmHg [facility] LABORATORY pO2 Art 322 (H) 85 - 104 [facility] LABORATORY HCO3 Art 24.9 20.0 - [facility] 26.0 [facility] mmol/L [facility] LABORATORY BE Art -0.4 -3.0 - 3.0 [facility] mmol/L [facility] LABORATORY Hgb Blood Gas 10.1 (L) 13.7 - [facility] 16.5 gm/dL [facility] LABORATORY O2HB Art 98.7 (H) 94.0 - [facility] 97.0 % [facility] LABORATORY COHB Art 0.1 % [facility] Comment: Nonsmokers: 0.5-1.5% COHB Smokers: Variable, but usually less than 10% Toxic: 20-30% COHB Lethal: Greater than 60% COHB METHB Art 0.3 <=1.5 % [facility]ORAT[facility] Na Whole Blood 130 (L) 135 - 145 mmol/L [facility] LABORATORY K Whole Blood 5.7 (H) 3.5 - 5.0 mmol/L [facility]OR[facility] Comment: Please note: Patients with WBC >100,000 may have falsely elevated Potassium levels. Contact the Clinical Chemistry L aboratory if there are any questions. ICa Whole Blood 0.89 (Critical) 1.15 - 1.33 mmol/L [facility]OR[facility] Comment: Noted by electrical and instrument technician. Note: ??Total bilirubin higher than 20 m g/dL may lead to falsely low ionized calcium. CL Whole Blood 101 98 - 107 mmol/L [facility] LABORAT[facility] Gluc Whole Bld 295 (H) 65 - 199 mg/dL [facility] LABORATORY Comment: Diabetes: >=200 mg/dL plus symp toms. Lactate WB 1.7 0.5 - 2.2 mmol/L [facility] LABORATORY Specimen Anatomical Collection Method Collection Time Receive d Time (Source) Location / / Volume Laterality Blood specimen 07/07/2017 4:38 PM 017 4:38 (specimen) EST PM EST Daphne Shahid MD CHEMISTRY ORDERABLES Performing Organization Address City/State/[place] [address] (ABNORMAL) BLOOD GAS 2 VENOUS (07/07/2017 4:06 PM EST) Analysis Performed At Patho logist Time Signature pH Cody 7.31 (L) 7.32 - [facility] 7.42 [facility] LABORATORY pCO2 Cody 47 41 - 51 [facility] LABORATORY pO2 Cody 53 (H) 25 - 40 [facility] LABORATORY HCO3 Cody 22.7 mmol/L [facility]OR[facility] BE Cody -3.7 mmol/L [facility] Hgb Blood Gas 10.2 (L) 13.7 - [facility] 16.5 gm/dL [facility] LABORATORY O2HB Cody 81.0 % [facility]OR[facility] COHB Cody 1.0 % [facility] Comment: Nonsmokers: 0.5-1.5% COHB Smokers: Variable, but usually less than 10% Toxic: 20-30% COHB Lethal: Greater than 60% COHB METHB Cody 0.3 <=1.5 % [facility] Na Whole Blood 132 (L) 135 - 145 mmol/L [facility] LABORATORY K Whole Blood 5.3 (H) 3.5 - 5.0 mmol/L [facility] Comment: Please note: Patients with WBC >100,000 may have falsely elevated Potassium levels. Contact the Clinical Chemistry L aboratory if there are any questions. ICa Whole Blood 0.90 (Critical) 1.15 - 1.33 mmol/L [facility] Comment: Noted by electrical and instrument technician. Note: ??Total bilirubin higher than 20 m g/dL may lead to falsely low ionized calcium. CL Whole Blood 100 98 - 107 mmol/L [facility] Gluc Whole Bld 231 (H) 65 - 199 mg/dL [facility] LABORATORY Comment: Diabetes: >=200 mg/dL plus [...] Organization Address City/State/[place] [address] (ABNORMAL) BLOOD GAS 2 ARTERIAL (07/07/2017 4:05 PM EST) Analysis Performed At Patho logist Time Signature pH Art 7.36 7.35 - [facility] 7.45 [facility] LABORATORY pCO2 Art 40 35 - 45 [facility] LABORATORY pO2 Art 282 (H) 85 - 104 [facility] LABORATORY HCO3 Art 22.1 20.0 - [facility] 26.0 [facility] mmol/L [facility] LABORATORY BE Art -3.4 (L) -3.0 - 3.0 [facility] mmol/L [facility] LABORATORY Hgb Blood Gas 10.2 (L) 13.7 - [facility] 16.5 gm/dL [facility] LABORATORY O2HB Art 98.4 (H) 94.0 - [facility] 97.0 % [facility] LABORATORY COHB Art 0.3 % [facility] Comment: Nonsmokers: 0.5-1.5% COHB Smokers: Variable, but usually less than 10% Toxic: 20-30% COHB Lethal: Greater than 60% COHB METHB Art 0.3 <=1.5 % [facility] Na Whole Blood 131 (L) 135 - 145 mmol/L [facility] LABORATORY K Whole Blood 5.4 (H) 3.5 - 5.0 mmol/L [facility] Comment: Please note: Patients with WBC >100,000 may have falsely elevated Potassium levels. Contact the Clinical Chemistry L aboratory if there are any questions. ICa Whole Blood 0.86 (Critical) 1.15 - 1.33 mmol/L [facility] Comment: Noted by electrical and instrument technician. Note: ??Total bilirubin higher than 20 m g/dL may lead to falsely low ionized calcium. CL Whole Blood 101 98 - 107 mmol/L [facility] Gluc Whole Bld 260 (H) 65 - 199 mg/dL [facility] LABOR[facility]ORY Comment: Diabetes: >=200 mg/dL plus symp toms. Lactate WB 1.4 0.5 - 2.2 mmol/L [facility] LABORATORY Specimen Anatomical Collection Method Collection Time Receive d Time (Source) Location / / Volume Laterality Blood specimen 07/07/2017 4:05 PM 017 4:05 (specimen) EST PM EST Daphne Shahid MD CHEMISTRY ORDERABLES Performing Organization Address City/State/[place] [address] (ABNORMAL) BLOOD GAS 2 ARTERIAL (07/07/2017 2:29 PM EST) Analysis Performed At Patho logist Time Signature pH Art 7.43 7.35 - [facility] 7.45 [facility] LABORATORY pCO2 Art 36 35 - 45 [facility] mmHg [facility] LABORATORY pO2 Art 221 (H) 85 - 104 [facility] LABORATORY HCO3 Art 23.2 20.0 - [facility] 26.0 [facility] mmol/L [facility] LABORATORY BE Art -1.2 -3.0 - 3.0 [facility] mmol/L [facility] LABORATORY Hgb Blood Gas 13.9 13.7 - [facility] 16.5 gm/dL [facility] O2HB Art 97.8 (H) 94.0 - [facility] 97.0 % [facility] LABORATORY COHB Art 1.1 % [facility] Comment: Nonsmokers: 0.5-1.5% COHB Smokers: Variable, but usually less than 10% Toxic: 20-30% COHB Lethal: Greater than 60% COHB METHB Art 0.3 <=1.5 % [facility] Na Whole Blood 139 135 - 145 mmol/L [facility] K Whole Blood 4.0 3.5 - 5.0 mmol/L [facility] Comment: Please note: Patients with WBC >100,000 may have falsely elevated Potassium levels. Contact the Clinical Chemistry L aboratory if there are any questions. ICa Whole Blood 1.11 (L) 1.15 - 1.33 mmol/L [facility] Comment: Note: ??Total bilirubin higher than 20 m g/dL may lead to falsely low ionized calcium. CL Whole Blood 104 98 - 107 mmol/L [facility] Gluc Whole Bld 184 65 - 199 mg/dL [facility] LAB[facility] Comment: Diabetes: >=200 mg/dL plus symp toms. Lactate WB 1.5 0.5 - 2.2 mmol/L [facility] LABORATORY Specimen Anatomical Collection Method Collection Time Receive d Time (Source) Location / / Volume Laterality Blood specimen 07/07/2017 2:29 PM 017 2:29 (specimen) EST PM EST Daphne Shahid MD CHEMISTRY ORDERABLES Performing Organization Address City/[facility] [place] [address] Prepare Coag Factors (Non-Hemophilia) (07/07/2017 1:25 PM EST) P athologist Signature Dispensed? Yes [facility] Specimen Anatomical Collection Method Collection Time Receive d Time (Source) Location / / Volume Laterality Blood specimen 07/07/2017 1:25 PM 017 1:21 (specimen) EST PM EST Daphne Shahid MD BLOOD BANK ORDERABLES Performing Organization Address City/[facility] [place] [address] Prepare RBC (07/07/2017 1:10 PM EST) P athologist Signature Dispensed? Yes [facility] Specimen Anatomical Collection Method Collection Time Receive d Time (Source) Location / / Volume Laterality Blood specimen 07/07/2017 1:10 PM 017 1:05 (specimen) EST PM EST Daphne Shahid MD BLOOD BANK ORDERABLES Performing Organization Address City/[facility]/ZIP Code Phon e Number [address] POCT Glucose (07/07/2017 11:56 AM EST) P athologist Signature POC Glucose 188 65 - 199 [place] mg/dL [facility] [...] CARE TEST ORDERABLE S Performing Organization Address City/[facility]/ZIP Code Phon e Number [address] POCT Glucose (07/07/2017 11:05 AM EST) athologist Signature POC Glucose 168 65 - 199 [place] mg/dL [place] [...] City/State/[place] [address] POCT Glucose (07/07/2017 10:02 AM EST) P athologist Signature POC Glucose 191 65 - 199 [place] R[facility] mg/dL [facility] [...] CARE TEST ORDERABLE S Performing Organization Address City/[facility]/ZIP Code Phon e Number [address] POCT Glucose (07/07/2017 7:53 AM EST) P athologist Signature POC Glucose 178 65 - 199 [place] ZHAORYAN mg/dL [facility] LABORATORY Comment: Supplemental ranges: <140 mg/dL before meals <180 mg/dL all other times of the day Specimen Anatomical Collection Method Collection Time Receive d Time (Source) Location / / Volume Laterality Blood specimen 07/07/2017 7:53 AM 017 7:53 (specimen) EST AM EST Daphne Shahid MD POINT OF CARE TEST ORDERABLE S Performing Organization Address City/[facility]/ZIP Code Phon e Number [address] POCT Glucose (07/07/2017 7:03 AM EST) athologist Signature POC Glucose 188 65 - 199 [place] ZHAORYAN mg/dL [facility] LAB[facility] Comment: Supplemental ranges: <140 mg/dL before meals <180 mg/dL all other times of the day Specimen Anatomical Collection Method Collection Time Receive d Time (Source) Location / / Volume Laterality Blood specimen 07/07/2017 7:03 AM 017 7:03 (specimen) EST AM EST Daphne Shahid MD POINT OF CARE TEST ORDERABLE S Performing Organization Address City/[facility]/[place] [address] (ABNORMAL) POCT Glucose (07/07/2017 6:17 AM EST) P athologist Signature POC Glucose 207 (H) 65 - 199 [place] RY[place] mg/dL [place] [...] Organization Address City/State/ZIP Code Phon e Number [address] Differential, Automated (07/07/2017 5:15 AM EST) P athologist Signature Neutrophils % 69.7 % [facility] Neutr Abs (ANC) 5.32 1.70 - [facility] 6.10 [facility] x10(3)/[facility] LABORATORY Lymphocytes % 16.3 % [facility] Lymphocytes Abs 1.2 0.9 - 3.2 [facility] x10(3)/[facility] LABORATORY Monocytes % 10.5 % [facility] Monocyte Abs 0.8 0.3 - 0.9 [facility] x10(3)/[facility] LABORATORY Eosinophils % 2.5 % [facility] Eosinophils Abs 0.2 0.0 - 0.4 [facility] x10(3)/[facility] LABORATORY Basophils % 0.7 % [facility] Basophils Abs 0.0 0.0 - 0.1 [facility] x10(3)/[facility] LABORATORY Immature Gran % 0.30 % [facility] Comment: Immature granulocytes(IG's)percentage an d absolute count will include metamyelocytes, myelocytes, and promyelo cytes. Blood smears from CBCs yielding IG's will be scanned manually for concor dance. If this scan disagrees with the automated IG or if promyelocytes are not ed, a manual differential will be performed. Melisa Gran Abs 0.02 0.00 - 0.04 x10(3)/[facility] LABORATORY Specimen Anatomical Collection Method Collection Time Receive d Time (Source) Location / / Volume Laterality Blood specimen 07/07/2017 5:15 AM 017 5:34 (specimen) EST AM EST Resulting Agency Comment Spec In Lab Daphne Shahid MD HEMATOLOGY ORDERABLES Performing Organization Address City/State/ZIP Code Phon e Number [address] (ABNORMAL) Hemogram (07/07/2017 5:15 AM EST) Analysis Performed At Patho logist Time Signature WBC 7.6 4.0 - 9.5 [facility] x10(3)/[facility] LABORATORY RBC 4.82 4.58 - [place] [facility] 5.54 [facility] x10(6)/[facility] LABORATORY Hemoglobin 14.4 13.7 - [facility] gm/dL [facility] Hematocrit 42.1 40.5 - [facility] 48.5 % [facility] LABORATORY MCV 87.3 82.9 - [facility] 93.1 [facility] LABORATORY MCH 29.9 27.5 - [facility] 32.1 pg [facility] LABORATORY MCHC 34.2 32.0 - [facility] gm/dL [facility] LAB[facility]ATORY Platelets 188 145 - 357 [facility] x10(3)/[facility] LABORATORY RDWSD 45.1 (H) 36.0 - [facility] 45.0 [facility] LABORATORY RDWCV 14.3 (H) 11.4 - [facility] 13.8 % [facility] LABORATORY MPV 9.4 7.6 - 12.9 [facility] LABORATORY nRBC % Auto 0.0 % [facility]OR[facility] nRBC Abs Auto 0.000 0.000 - [facility] 0.000 [facility] x10(3)/[facility] LABORATORY Specimen Anatomical Collection Method Collection Time Receive d Time (Source) Location / / Volume Laterality Blood specimen 07/07/2017 5:15 AM 017 5:34 (specimen) EST AM EST Resulting Agency Comment Spec In Lab Daphne Shahid MD HEMATOLOGY ORDERABLES Performing Organization Address City/State/[place] [address] (ABNORMAL) APTT (07/07/2017 5:15 AM EST) P athologist Signature PTT 69 (H) 25 - 35 sec [facility] Comment: The recommended therapeutic range [...] Shahid MD HEMATOLOGY ORDERABLES Performing Organization Address City/[facility]/ZIP Code Phon e Number [address] Magnesium (07/07/2017 5:15 AM EST) athologist Signature Magnesium 0.94 0.69 - 1.07 [facility] mmol/L [facility] LABORATORY Specimen Anatomical Collection Method Collection Time Receive d Time (Source) Location / / Volume Laterality Blood specimen 07/07/2017 5:15 AM 017 5:34 (specimen) EST AM EST Resulting Agency Comment Spec In Lab Daphne Shahid MD CHEMISTRY ORDERABLES Performing Organization Address City/[facility]/[place] [address] (ABNORMAL) Basic Metabolic Panel (non-fasting) (07/07/2017 5:15 AM EST) athologist Signature Glucose Lvl 203 (H) 65 - 199 [facility] mg/dL [facility] LABOR[facility]ORY Comment: Diabetes: >=200 mg/dL plus symp toms BUN 15 10 - 20 mg/dL [facility] LABORATORY Creatinine 1.09 0.80 - [...] or in patients with acute kidney failure. [email or web address] Specimen Anatomical Collection Method Collection Time Receive d Time (Source) Location / / Volume Laterality Blood specimen 07/07/2017 5:15 AM 017 5:34 (specimen) EST AM EST Resulting Agency Comment Spec In Lab Daphne Shahid MD CHEMISTRY ORDERABLES Performing Organization Address City/State/[place] [address] (ABNORMAL) Cardiac Enzymes (LEB/CGP) (07/07/2017 5:15 AM EST) P athologist Signature Troponin-T 2.07 (H) 0.00 - [facility] 0.00 ng/mL [facility] LABOR[facility]ORY Comment: The 99th percentile [...] additional sample may be indicated. Reference: Third Kearsarge Definition of Myocardial Infarction. Journal of the [place] [employer] 2012;60:1581-98 CK, Total 88 0 - 200 unit/L [facility] Specimen Anatomical Collection Method Collection Time Receive d Time (Source) Location / / Volume Laterality Blood specimen 07/07/2017 5:15 AM 017 5:34 (specimen) EST AM EST Resulting Agency Comment Spec In Lab Daphne Shahid MD CHEMISTRY ORDERABLES Performing Organization Address City/[facility]/ZIP Code Phon e Number [address] POCT Glucose (07/07/2017 5:01 AM EST) athologist Signature POC Glucose 182 65 - 199 [facility] LAB[facility] Comment: Supplemental ranges: <140 mg/dL before meals <180 mg/dL all other times of the day Specimen Anatomical Collection Method Collection Time Receive d Time (Source) Location / / Volume Laterality Blood specimen 07/07/2017 5:01 AM 017 5:01 (specimen) EST AM EST Daphne Shahid MD POINT OF CARE TEST ORDERABLE S Performing Organization Address City/[facility]/ZIP Code Phon e Number [address] POCT Glucose (07/07/2017 4:08 AM EST) athologist Signature POC Glucose 199 65 - [address] [facility] Comment: Supplemental ranges: <140 mg/dL before meals <180 mg/dL all other times of the day Specimen Anatomical Collection Method Collection Time Receive d Time (Source) Location / / Volume Laterality Blood specimen 07/07/2017 4:08 AM 017 4:08 (specimen) EST AM EST Daphne Shahid MD POINT OF CARE TEST ORDERABLE S Performing Organization Address City/[facility]/[place] [address] POCT Glucose (07/07/2017 3:03 AM EST) athologist Signature POC Glucose 188 65 - [address] [facility] Comment: [...] City/State/[place] [address] (ABNORMAL) POCT Glucose (07/07/2017 2:08 AM EST) athologist Signature POC Glucose 200 (H) 65 - 199 [facility]dL [facility] Comment: [...] City/State/[place] [address] (ABNORMAL) POCT Glucose (07/07/2017 1:31 AM EST) athologist Signature POC Glucose 209 (H) 65 - [address] [facility] Comment: [...] City/State/[place] [address] XR Chest PA or [...] Signature POC Glucose 161 65 - 199 [facility] mg/dL [facility] Comment: [...] Organization Address City/State/[place] [address] (ABNORMAL) APTT (07/07/2017 12:00 AM EST) athologist Signature PTT 103 (H) 25 - 35 sec [facility] Comment: The recommended therapeutic range [...] Shahid MD HEMATOLOGY ORDERABLES Performing Organization Address City/[facility]/ZIP Code Phon e Number [address] POCT Glucose (07/06/2017 9:55 PM EST) athologist Signature POC Glucose 109 65 - 199 [facility] Comment: Supplemental ranges: <140 mg/dL before meals <180 mg/dL all other times of the day Specimen Anatomical Collection Method Collection Time Receive d Time (Source) Location / / Volume Laterality Blood specimen 07/06/2017 9:55 PM 017 9:55 (specimen) EST PM EST Daphne Shahid MD POINT OF CARE TEST ORDERABLE S Performing Organization Address City/[facility]/ZIP Code Phon e Number [address] POCT Glucose (07/06/2017 9:04 PM EST) athologist Signature POC Glucose 120 65 - [address] [facility] Comment: [...] Organization Address City/State/ZIP Code Phon e Number [address] POCT Glucose (07/06/2017 7:45 PM EST) athologist Signature POC Glucose 158 65 - 199 [place] RY[place] mg/dL [place] [...] CARE TEST ORDERABLE S Performing Organization Address City/[facility]/ZIP Code Phon e Number [address] Potassium (07/06/2017 7:40 PM EST) athologist [facility] Potassium 3.9 3.5 - 5.0 [facility] mmol/L [facility] LABORATORY Comment: Please note: ??Patients [...] Shahid MD CHEMISTRY ORDERABLES Performing Organization Address City/[facility]/[place] [address] (ABNORMAL) Cardiac Enzymes (LEB/CGP) (07/06/2017 7:40 PM EST) athologist Signature Troponin-T 2.27 (H) 0.00 - [facility] 0.00 ng/mL [facility] Comment: The 99th percentile [...] additional sample may be indicated. Reference: Third Kearsarge Definition of Myocardial Infarction. Journal of the [place] [employer] 2012;60:1581-98 CK, Total 93 0 - 200 unit/L [facility] Specimen Anatomical Collection Method Collection Time Receive d Time (Source) Location / / Volume Laterality Blood specimen 07/06/2017 7:40 PM 017 7:52 (specimen) EST PM EST Resulting Agency Comment Spec In Lab Daphne Shahid MD CHEMISTRY ORDERABLES Performing Organization Address City/State/[place] [address] (ABNORMAL) POCT Glucose (07/06/2017 7:13 PM EST) P athologist Signature POC Glucose 200 (H) 65 - 199 [facility] mg/dL [facility] Comment: [...] City/State/[place] [address] (ABNORMAL) APTT (07/06/2017 6:15 PM EST) athologist Signature PTT 94 (H) 25 - 35 sec [facility] Comment: The recommended therapeutic range [...] Organization Address City/State/ZIP Code Phon e Number [address] (ABNORMAL) POCT Glucose (07/06/2017 6:03 PM EST) athologist Signature POC Glucose 236 (H) 65 - 199 [facility] Comment: Supplemental ranges: <140 mg/dL before meals <180 mg/dL all other times of the day Specimen Anatomical Collection Method Collection Time Receive d Time (Source) Location / / Volume Laterality Blood specimen 07/06/2017 6:03 PM 017 6:03 (specimen) EST PM EST Daphne Shahid MD POINT OF CARE TEST ORDERABLE S Performing Organization Address City/[facility]/[place] [address] (ABNORMAL) POCT Glucose (07/06/2017 5:01 PM EST) athologist Signature POC Glucose 235 (H) 65 - [address] [facility] Comment: [...] Address City/State/ZIP Code Phon [place] [address] (ABNORMAL) POCT Glucose (07/06/2017 4:06 PM EST) athologist Signature POC Glucose 202 (H) 65 - [address] [facility] Comment: [...] Organization Address City/State/ZIP Code Phon e Number [address] POCT Glucose (07/06/2017 2:59 PM EST) athologist Signature POC Glucose 178 65 - 199 [facility] Comment: [...] City/State/[place] [address] (ABNORMAL) Cardiac Enzymes (LEB/CGP) (07/06/2017 2:10 PM EST) athologist Signature Troponin-T 2.34 (H) 0.00 - [place] OLIV[place] 0.00 ng/mL [facility] Comment: The 99th percentile [...] additional sample may be indicated. Reference: Third Kearsarge Definition of Myocardial Infarction. Journal of the [place] College [employer]iology 2012;60:1581-98 CK, Total 101 0 - 200 unit/L [facility] Specimen Anatomical Collection Method Collection Time Receive d Time (Source) Location / / Volume Laterality Blood specimen 07/06/2017 2:10 PM 017 2:26 (specimen) EST PM EST Resulting Agency Comment Spec In Lab Daphne Shahid MD CHEMISTRY ORDERABLES Performing Organization Address City/[facility]/ZIP Code Phon e Number [address] POCT Glucose (07/06/2017 2:08 PM EST) athologist Signature POC Glucose 192 65 - 199 [facility] Comment: Supplemental ranges: <140 mg/dL before meals <180 mg/dL all other times of the day Specimen Anatomical Collection Method Collection Time Receive d Time (Source) Location / / Volume Laterality Blood specimen 07/06/2017 2:08 PM 017 2:08 (specimen) EST PM EST Daphne Shahid MD POINT OF CARE TEST ORDERABLE S Performing Organization Address City/[facility]/ZIP [facility] Phon e Number [address] POCT Glucose (07/06/2017 1:04 PM EST) athologist Signature POC Glucose 162 65 - 199 [facility] Comment: [...] City/State/[place] [address] POCT Glucose (07/06/2017 12:05 PM EST) P athologist Signature POC Glucose 196 65 - 199 [facility] mg/dL [facility] Comment: Supplemental ranges: <140 mg/dL before meals <180 mg/dL all other times of the day Specimen Anatomical Collection Method Collection Time Receive d Time (Source) Location / / Volume Laterality Blood specimen 07/06/2017 12:05 7 (specimen) PM EST 12:05 PM EST Daphne Shahid MD POINT OF CARE TEST ORDERABLE S Performing Organization Address City/[facility]/[place] [address] EKG 12 Lead (07/06/2017 12:00 PM EST) Component Value Ref Range Test Analysis Performed Pathologis t Method Time At Signature Ventricular rate 91 BPM MUSE SYSTEM Atrial Rate 91 BPM MUSE SYSTEM P-R Interval 140 ms MUSE SYSTEM QRS Duration 94 ms MUSE SYSTEM Q-T Interval 394 ms MUSE SYSTEM QTC Calculated 484 ms MUSE SYSTEM (Bezet) Calculated P [place] 36 degrees MUSE SYSTEM Calculated R [place] -19 degrees MUSE SYSTEM Calculated T [place] 104 degrees MUSE SYSTEM INTERPRETATION Normal sinus rhythm MUSE SYSTEM 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) ST & T wave abnormality, consider lateral ischemia Abnormal ECG When compared with ECG of 05-JUL-2017 20:39, No significant change was found Confirmed by MD Luci, Taurus Braun ([id number]) on 07/06/2017 5:07:33 PM Specimen Anatomical Collection Method Collection Time Receive d Time (Source) Location / / Volume Laterality 07/06/2017 12:00 07/06/2017 5:07 PM EST PM EST Daphne Shahid MD ECG ORDERABLES Performing Organization Address City/State/ZIP Code Phon e Number MUSE SYSTEM ABORH Recheck Status (07/06/2017 12:00 PM EST) [facility] Method Time Signature ABORH Type Completed [facility] LABORATORY Specimen Anatomical Collection Method Collection Time Receive d Time (Source) Location / / Volume Laterality Blood specimen 07/06/2017 12:00 7 (specimen) PM EST 12:24 PM EST Resulting Agency Comment Spec In Lab Daphne Shahid MD BLOOD BANK ORDERABLES Performing Organization Address City/State/[place] [address] Antibody screen (07/06/2017 12:00 PM EST) [facility] Method Time Signature Ab Screen Negative [facility] LABORATORY Expires at 07/09/2017 [facility] [id number] on: [facility] Specimen Anatomical Collection Method Collection Time Receive d Time (Source) Location / / Volume Laterality Blood specimen 07/06/2017 12:00 7 (specimen) PM EST 12:24 PM EST Resulting Agency Comment Spec In Lab Daphne Shahid MD BLOOD BANK ORDERABLES Performing Organization Address City/State/[place] [address] ABO/Rh Typing (07/06/2017 12:00 PM EST) P athologist Signature ABORh Type O Pos [facility] Specimen Anatomical Collection Method Collection Time Receive d Time (Source) Location / / Volume Laterality Blood specimen 07/06/2017 12:00 7 (specimen) PM EST 12:24 PM EST Resulting Agency Comment Spec In Lab Daphne Shahid MD BLOOD BANK ORDERABLES Performing Organization Address City/State/[place] [address] Prothrombin Time (07/06/2017 11:24 AM EST) P athologist Signature PT 13.3 11.8 - 14.0 [facility] LABORATORY INR 1.0 0.9 - 1.1 [facility] Comment: [...] Shahid MD HEMATOLOGY ORDERABLES Performing Organization Address City/[facility]/ZIP Code Phon e Number [address] (ABNORMAL) APTT (07/06/2017 11:24 AM EST) P athologist Signature PTT 52 (H) 25 - 35 sec [facility] Comment: The recommended therapeutic range [...] Shahid MD HEMATOLOGY ORDERABLES Performing Organization Address City/[facility]/[place] [address] POCT Glucose (07/06/2017 11:02 AM EST) P athologist Signature POC Glucose 187 65 - 199 [facility] mg/dL [facility] Comment: [...] Organization Address City/State/ZIP Code Phon e Number [address] POCT Glucose (07/06/2017 10:18 AM EST) athologist Signature POC Glucose 193 65 - 199 [place] [facility] mg/dL [facility] Comment: Supplemental ranges: <140 mg/dL before meals <180 mg/dL all other times of the day Specimen Anatomical Collection Method Collection Time Receive d Time (Source) Location / / Volume Laterality Blood specimen 07/06/2017 10:18 7 (specimen) AM EST 10:18 AM EST Daphne Shahid MD POINT OF CARE TEST ORDERABLE S Performing Organization Address City/[facility]/ZIP Code Phon e Number [address] POCT Glucose (07/06/2017 9:25 AM EST) athologist Signature POC Glucose 182 65 - [facility] Comment: Supplemental ranges: <140 mg/dL before meals <180 mg/dL all other times of the day Specimen Anatomical Collection Method Collection Time Receive d Time (Source) Location / / Volume Laterality Blood specimen 07/06/2017 9:25 AM 017 9:25 (specimen) EST AM EST Daphne Shahid MD POINT OF CARE TEST ORDERABLE S Performing Organization Address City/[facility]/[place] [address] (ABNORMAL) Cardiac Enzymes (LEB/CGP) (07/06/2017 8:10 AM EST) athologist Signature Troponin-T 2.26 (H) 0.00 - [place] [facility] 0.00 ng/mL [facility] Comment: The 99th percentile [...] additional sample may be indicated. Reference: Third Kearsarge Definition of Myocardial Infarction. Journal of the [place] College of Cardiology 2012;60:1581-98 CK, Total 124 0 - 200 unit/L [facility] Specimen Anatomical Collection Method Collection Time Receive d Time (Source) Location / / Volume Laterality Blood specimen 07/06/2017 8:10 AM 017 8:23 (specimen) EST AM EST Resulting Agency Comment Spec In Lab Daphne Shahid MD CHEMISTRY ORDERABLES Performing Organization Address City/State/ZIP Code Phon e Number [address] Magnesium (07/06/2017 8:10 AM EST) P athologist Signature Magnesium 0.84 0.69 - 1.07 [facility]/L [facility] Specimen Anatomical Collection Method Collection Time Receive d Time (Source) Location / / Volume Laterality Blood specimen 07/06/2017 8:10 AM 017 8:21 (specimen) EST AM EST Resulting Agency Comment Spec In Lab Daphne Shahid MD CHEMISTRY ORDERABLES Performing Organization Address City/[facility]/ZIP Code Phon e Number [address] (ABNORMAL) Basic Metabolic Panel (non-fasting) (07/06/2017 8:10 AM EST) P athologist Signature Glucose Lvl 199 65 - 199 [facility] Comment: Diabetes: >=200 mg/dL plus symp toms BUN 16 10 - 20 mg/dL [facility] Creatinine 1.04 0.80 - [...] or in patients with acute kidney failure. http://Hita.AmeriWorks/DHnkdep http://paraBebes.com/DHMCnkf Specimen Anatomical Collection Method Collection Time Receive d Time (Source) Location / / Volume Laterality Blood specimen 07/06/2017 8:10 AM 017 8:21 (specimen) EST AM EST Resulting Agency Comment Spec In Lab Daphne Shahid MD CHEMISTRY ORDERABLES Performing Organization Address City/State/[place] [address] POCT Glucose (07/06/2017 7:34 AM EST) P athologist Signature POC Glucose 198 65 - 199 [facility] mg/dL [facility] Comment: [...] Organization Address City/State/ZIP Code Phon e Number [address] POCT Glucose (07/06/2017 7:03 AM EST) P athologist Signature POC Glucose 181 65 - 199 [facility] mg/dL [facility] Comment: [...] City/State/[place] [address] XR Chest PA or [...] POC Glucose 172 65 - [address] [facility] Comment: [...] City/State/[place] [address] POCT Glucose (07/06/2017 5:08 AM EST) athologist Signature POC Glucose 154 65 - 199 [facility] mg/dL [facility] [...] City/State/[place] [address] POCT Glucose (07/06/2017 4:05 AM EST) athologist Signature POC Glucose 142 65 - 199 [facility] Comment: Supplemental ranges: <140 mg/dL before meals <180 mg/dL all other times of the day Specimen Anatomical Collection Method Collection Time Receive d Time (Source) Location / / Volume Laterality Blood specimen 07/06/2017 4:05 AM 017 4:05 (specimen) EST AM EST Daphne Shahid MD POINT OF CARE TEST ORDERABLE S Performing Organization Address City/[facility] Phon e Number [address] POCT Glucose (07/06/2017 3:00 AM EST) athologist Signature POC Glucose 116 65 - 199 [facility] Comment: Supplemental ranges: <140 mg/dL before meals <180 mg/dL all other times of the day Specimen Anatomical Collection Method Collection Time Receive d Time (Source) Location / / Volume Laterality Blood specimen 07/06/2017 3:00 AM 017 3:00 (specimen) EST AM EST Daphne Shahid MD POINT OF CARE TEST ORDERABLE S Performing Organization Address City/[facility] [place] [address] Potassium (07/06/2017 2:20 AM EST) athologist Signature Potassium 3.9 3.5 - 5.0 [facility] mmol/L [facility] Comment: Please note: ??Patients [...] City/State/ZIP Code Phon e Number [place] [phone] Differential, Automated (07/06/2017 2:20 AM EST) P athologist Signature Neutrophils % 72.9 % [facility] Neutr Abs (ANC) 5.53 1.70 - [facility] 6.10 [facility] x10(3)/[facility] LABORATORY Lymphocytes % 16.4 % [facility] Lymphocytes Abs 1.2 0.9 - 3.2 [facility] x10(3)/[facility] LABORATORY Monocytes % 9.4 % [facility] Monocyte Abs 0.7 0.3 - 0.9 [facility] x10(3)/[facility] LABORATORY Eosinophils % 0.5 % [facility] Eosinophils Abs 0.0 0.0 - 0.4 [facility] x10(3)/[facility] LABORATORY Basophils % 0.4 % [facility] Basophils Abs 0.0 0.0 - 0.1 [facility] x10(3)/[facility] LABORATORY Immature Gran % 0.40 % [facility] Comment: Immature granulocytes(IG's)percentage [...] [facility] MAR Y [facility] Specimen Anatomical Collection Method Collection Time Receive d Time (Source) Location / / Volume Laterality Blood specimen 07/06/2017 2:20 AM 017 2:33 (specimen) EST AM EST Resulting Agency Comment Spec In Lab Daphne Shahid MD HEMATOLOGY ORDERABLES Performing Organization Address City/State/[place] [address] (ABNORMAL) Hemogram (07/06/2017 2:20 AM EST) Analysis Performed At Patho logist Time Signature WBC 7.6 4.0 - 9.5 [facility] x10(3)/[facility] LABORATORY RBC 4.52 (L) 4.58 - [facility] 5.54 [facility] x10(6)/[facility] LABORATORY Hemoglobin 13.4 (L) 13.7 - [facility] 16.5 gm/dL [facility] Hematocrit 39.7 (L) 40.5 - [facility] 48.5 % [facility] MCV 87.8 82.9 - [facility] 93.1 [facility] LABORATORY MCH 29.6 27.5 - [facility] 32.1 pg [facility] MCHC 33.8 32.0 - [facility] 35.7 gm/dL [facility] Platelets 189 145 - 357 [facility] x10(3)/[facility] LABORATORY RDWSD 45.6 (H) 36.0 - [facility] 45.0 [facility] LABORATORY RDWCV 14.3 (H) 11.4 - [facility] 13.8 % [facility] MPV 9.1 7.6 - 12.9 [facility] LABORATORY nRBC % Auto 0.0 % [facility] nRBC Abs Auto 0.000 0.000 - [facility] 0.000 [facility] x10(3)/[facility] LABORATORY Specimen Anatomical Collection Method Collection Time Receive d Time (Source) Location / / Volume Laterality Blood specimen 07/06/2017 2:20 AM 017 2:33 (specimen) EST AM EST Resulting Agency Comment Spec In Lab Daphne Shahid MD HEMATOLOGY ORDERABLES Performing Organization Address City/State/[place] [address] (ABNORMAL) APTT (07/06/2017 2:20 AM EST) P athologist Signature PTT 52 (H) 25 - 35 sec [facility] Comment: The recommended therapeutic range [...] Organization Address City/State/ZIP Code Phon e Number [address] POCT Glucose (07/06/2017 2:20 AM EST) athologist Signature POC Glucose 115 65 - 199 [facility]dL [facility] Comment: Supplemental ranges: <140 mg/dL before meals <180 mg/dL all other times of the day Specimen Anatomical Collection Method Collection Time Receive d Time (Source) Location / / Volume Laterality Blood specimen 07/06/2017 2:20 AM 017 2:20 (specimen) EST AM EST Daphne Shahid MD POINT OF CARE TEST ORDERABLE S Performing Organization Address City/[facility]/[place] [address] (ABNORMAL) Cardiac Enzymes (LEB/CGP) (07/06/2017 2:20 AM EST) athologist Signature Troponin-T 2.13 (H) 0.00 - [facility] 0.00 ng/mL [facility] Comment: The 99th percentile [...] additional sample may be indicated. Reference: Third Kearsarge Definition of Myocardial Infarction. Journal of the [place] College of Cardiology 2012;60:1581-98 CK, Total 129 0 - 200 unit/L [facility] Specimen Anatomical Collection Method Collection Time Receive d Time (Source) Location / / Volume Laterality Blood specimen 07/06/2017 2:20 AM 017 2:33 (specimen) EST AM EST Resulting Agency Comment Spec In Lab Daphne Shahid MD CHEMISTRY ORDERABLES Performing Organization Address City/State/[place] [address] (ABNORMAL) Hemoglobin A1c (07/06/2017 [...] Mellitus, Diabetes Care 2013; 36: Suppl. 1, S17-05 Est Avg Gluc See note mg/dL [facility] [...] Additional resources are available on [facility] ADA website. Macario HAMMOND, Ruthann J, Deysi R, et al. ??Tr anslating the A1C assay into estimated average glucose values. ??Diabetes Care 2008:31(8):1910-6600. Specimen Anatomical Collection Method Collection Time Receive d Time (Source) Location / / Volume Laterality Blood specimen 07/06/2017 2:20 AM 017 2:34 (specimen) EST AM EST Resulting Agency Comment Spec In Lab Daphne Shahid MD CHEMISTRY ORDERABLES Performing Organization Address City/State/[place] [address] (ABNORMAL) Lipid Panel (07/06/2017 2:20 AM EST) [facility] Method Time Signature Chol, Total 150 <=239 [place] mg/dL [facility] Triglycerides 129 <=199 [place] mg/dL [facility] HDL 32 (L) >=40 [place] mg/dL [facility] LDL Cholesterol 92 <=190 [place] mg/dL [facility] Chol/HDL Ratio 4.7 ratio [facility] Lipid See Note [place]INA Interpretation [facility] Comment: Lipid management should be guided by a p atient? s ASCVD risk, goals and preferences. ACC/AHA Guidelines recommend high intens ity statin if clinical ASCVD or LDL greater than or equal to 190 mg/dL. http://Memonicurl.com/MXN-ZZB-Xiyaavqgm Adults aged 40-75 with LDL 70-189 mg/dL should have their 10 year ASCVD risk estimated with the ACC/AHA ASCVD risk es timator http://tools.acc.org/UKVZX-Xhib-Wnwsoeuq r/ Statin should be discussed if risk [...] Shahid MD CHEMISTRY ORDERABLES Performing Organization Address City/[facility]/ZIP Code Phon e Number [address] POCT Glucose (07/06/2017 1:09 AM EST) athologist Signature POC Glucose 121 65 - 199 [facility]dL [facility] Comment: [...] City/State/[place] [address] POCT Glucose (07/06/2017 12:06 AM EST) P athologist Signature POC Glucose 147 65 - 199 [facility]dL [facility] Comment: [...] City/State/[place] [address] (ABNORMAL) POCT Glucose (07/05/2017 10:56 PM EST) P athologist Signature POC Glucose 200 (H) 65 - 199 [facility] mg/dL [facility]ORY [...] City/State/[place] [address] (ABNORMAL) POCT Glucose (07/05/2017 10:05 PM EST) P athologist Signature POC Glucose 225 (H) 65 - 199 [facility] mg/dL [facility]ORY [...] City/State/[place] [address] (ABNORMAL) POCT Glucose (07/05/2017 9:02 PM EST) P athologist Signature POC Glucose 301 (H) 65 - 199 [place] RYAN mg/dL [facility] [...] Address City/State/ZIP Code Phon e Number [place] [id number] XR Chest PA or [...] 474 ms MUSE SYSTEM (Bezet) Calculated P [place] 50 degrees MUSE SYSTEM Calculated R [place] -28 degrees MUSE SYSTEM Calculated T [place] 90 degrees MUSE SYSTEM INTERPRETATION Sinus tachycardia [...] (ABNORMAL) Differential, Automated (07/05/2017 8:20 PM EST) [facility] gist Method Time Signature Neutrophils % 88.4 % [facility] Neutr Abs (ANC) 9.08 (H) 1.70 - [facility] 6.10 [facility] x10(3)/[facility] L LABORATORY Lymphocytes % 7.0 % [facility] Lymphocytes Abs 0.7 (L) 0.9 - 3.2 [facility] x10(3)/[facility] LABORATORY Monocytes % 3.7 % [facility] Monocyte Abs 0.4 0.3 - 0.9 [facility] x10(3)/[facility] LABORATORY Eosinophils % 0.1 % [facility] Eosinophils Abs 0.0 0.0 - 0.4 [facility] x10(3)/[facility] LABORATORY Basophils % 0.2 % [facility] Basophils Abs 0.0 0.0 - 0.1 [facility] x10(3)/[facility] LABORATORY Immature Gran % 0.60 % [...] Organization Address City/State/[place] [address] (ABNORMAL) Hemogram (07/05/2017 8:20 PM EST) Analysis Performed At Patho logist Time Signature WBC 10.3 (H) 4.0 - 9.5 [facility] x10(3)/[facility] LABORATORY RBC 4.64 4.58 - [facility] 5.54 [facility] x10(6)/[facility] LABORATORY Hemoglobin 14.1 13.7 - [facility] 16.[facility] gm/dL [facility] Hematocrit 40.8 40.5 - [facility] 48.5 % [facility] MCV 87.9 82.9 - [facility] 93.1 [facility] LABORATORY MCH 30.4 27.5 - [facility] 32.1 pg [facility] MCHC 34.6 32.0 - [facility] 35.7 gm/dL [facility] Platelets 204 145 - 357 [facility] x10(3)/[facility] LABORATORY RDWSD 46.1 (H) 36.0 - [facility] 45.0 [facility] LABORATORY RDWCV 14.5 (H) 11.4 - [facility] 13.8 % [facility] LABORATORY MPV 9.7 7.6 - 12.9 [facility] LABORATORY nRBC % Auto 0.0 % [facility] nRBC Abs Auto 0.000 0.000 - [facility] 0.000 [facility] x10(3)/[facility] LABORATORY Specimen Anatomical Collection Method Collection Time Receive d Time (Source) Location / / Volume Laterality Blood specimen 07/05/2017 8:20 PM 017 8:27 (specimen) EST PM EST Resulting Agency Comment Spec In Lab Daphne Shahid MD HEMATOLOGY ORDERABLES Performing Organization Address [place]/[facility]/[place] [address] APTT (07/05/2017 8:20 PM EST) athologist Signature PTT 32 25 - 35 sec [facility] Comment: The recommended therapeutic range [...] Shahid MD HEMATOLOGY ORDERABLES Performing Organization Address [place]/[facility] [place] [address] (ABNORMAL) Cardiac Enzymes (LEB/CGP) (07/05/2017 8:20 PM EST) athologist Signature Troponin-T 2.11 (H) 0.00 - [facility] 0.00 ng/mL [facility] Comment: The 99th percentile [...] additional sample may be indicated. Reference: Third Kearsarge Definition of Myocardial Infarction. Journal of the [place] College of Cardiology 2012;60:1581-98 CK, Total 149 0 - 200 unit/L [facility] Specimen Anatomical Collection Method Collection Time Receive d Time (Source) Location / / Volume Laterality Blood specimen 07/05/2017 8:20 PM 017 8:27 (specimen) EST PM EST Resulting Agency Comment Spec In Lab Daphne Shahid MD CHEMISTRY ORDERABLES Performing Organization Address City/[facility]/[place] [address] (ABNORMAL) Magnesium (07/05/2017 8:20 PM EST) P athologist Signature Magnesium 0.68 (L) 0.69 - 1.07 [facility] mmol/L [facility] Specimen Anatomical Collection Method Collection Time Receive d Time (Source) Location / / Volume Laterality Blood specimen 07/05/2017 8:20 PM 017 8:27 (specimen) EST PM EST Resulting Agency Comment Spec In Lab Daphne Shahid MD CHEMISTRY ORDERABLES Performing Organization Address City/[facility]/[place] [address] (ABNORMAL) Basic Metabolic Panel (non-fasting) (07/05/2017 8:20 PM EST) P athologist Signature Glucose Lvl 321 (H) 65 - 199 [facility] mg/dL [facility] Comment: [...] or in patients with acute kidney failure. http://[email or web address] http://paraBebes.com/DHnkf Specimen Anatomical Collection Method Collection Time Receive d Time (Source) Location / / Volume Laterality Blood specimen 07/05/2017 8:20 PM 017 8:27 (specimen) EST PM EST Resulting Agency Comment Spec In Lab Daphne Shahid MD CHEMISTRY ORDERABLES Performing Organization Address City/[facility]/[place] [address] (ABNORMAL) POCT Glucose (07/05/2017 7:32 PM EST) P athologist Signature POC Glucose 296 (H) 65 - 199 [facility] mg/dL [facility] Comment: Supplemental ranges: <140 mg/dL before meals <180 mg/dL all other times of the day Specimen Anatomical Collection Method Collection Time Receive d Time (Source) Location / / Volume Laterality Blood specimen 07/05/2017 7:32 PM 017 7:32 (specimen) EST PM EST Daphne Shahid MD POINT OF CARE TEST ORDERABLE S Performing Organization Address City/[facility]/ZIP [place] [address] CARDIAC CATHETERIZATION (07/05/2017 6:47 PM EST) Specimen (Source) Anatomical Location Collection Method / Collectio n Time Received Time / Laterality Volume Narrative CARDIOMAC SYSTEM - 07/05/2017 7:27 PM ES T ?[facility] ? Cardiac Cathete rization/Intervention Report ? Patient Name: Natalya, Gregory ? Procedure Date: 07/05/2017 ? A #: [id number] ? Primary Physician: Jet Mckenna ? Case #: [id number] ? File Name: [id number] ? Catheterization Order Number: [id number] ? [facility] ? Final Report [place], [place] ? Patient Name: ? Gregory Natalya ?ID#: ?[id number] ? : ?1945 ? Procedure Date: ? Johnny 11, 20 17 ?Case #: ? [id number] ? Room: ? 6 ? Case Physician: ? Jet Adrián Mckenna , M.D. ?Start: ?18:06 ? Admission: [...] presented with: non -STEMI (w/i 7 days). Jeff [place] ?Cardiovascular Society angina c lass was IV. 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 ? Jet Mckenna M.D. ? Electronically Signed by: Jet bunch M.D. ? Report Finalized: 07/05/2017 ??19:23 ? Report Last Ammended: 10/26/2017 ??10:29 ? Procedure Note Jet Mckenna MD - 10/26/2017Formatt ing of this note might be different from the original. [facility] Cardiac Catheterization/Intervention Re port Patient Name: Gregory Hoang Procedure Date: 07/05/2017 A #: [id number] Primary Physician: Jet Mckenna Case #: [id number] File Name: [id number] Catheterization Order Number: [id number] [facility] Final Report [place], [place] Patient Name: Gregory Hoang ID#: [id number] 3- : 1945 Procedure Date: July 05, [...] presented with: non-STEMI ( w/i 7 days). [employer] [place] [employer] Society angina class was IV. No [...] site angiograph y and IABP insertion in greens laborer. Jet Mckenna M.D. Electronically Signed by: Jet bunch M.D. Report Finalized: 07/05/2017 19:23 Report Last Ammended: 10/26/2017 10:29 aDphne Shahid MD CARDIAC CATH ORDERABLES Performing Organization [...] E ? (Age): 1945(72y) Med Rec#: ? [id number] ?Sex: ?M ? Site Loc: ? [facility] ?Ht / Wt: ??173(cm)/86(kg) Pt. Loc: ?CCU ? BSA: ?2 Study Date: ?? 07/05/2017 ?Pt. Type: Inpatient Tape: ? Referring: Daphne Shahid ([id number]) Referring: MANDA ALCANTAR Reading: Blade Preston ([id number]) Public Speaking Coach: Dayami Paula BA, [facility] Diagnosis: *ICD-10-PCS Non-ST elevation (NSTEMI) [...] E-wave Vmax ?0.8 ?m/sec ? MV deceleration [id number] ?msec ? MV A-wave Vmax ?0.8 ?m/sec [...] ? Mid-Inferior ?Akinetic ? Mid-Inferoseptal ?Hypokinetic ? [place]-Septal ? Akinetic ? [place]-Anterior ? Hypokinetic ? [place]-Lateral ?Hypokinetic ? [place]-Inferior ? Akinetic ? [place]-Tip ?Akinetic ? This report has been electronically sign ed by: _ Blade Preston MD ? 07/06/2017 08 :53:15 Images reviewed and interpretation verif ied [facility] Cardiac Ultrasound Laboratory Procedure Note Blade Preston MD - 07/06/2017Formatt ing of this note might be different from the original. Procedure: Transthoracic Echocardiogram Patient: NATALYA MCBRIDE(Age): [birth year]72y) Med Rec#: [id number] Sex: M Site Loc: [facility] Ht / Wt: 173(cm)/86(kg) Pt. Loc: [facility] BSA: 2 Study Date: 07/05/2017 Pt. Type: Inpatie nt Tape: Referring: Daphne Shahid ([id number]) Referring: MANDA ALCANTAR Reading: Blade Preston ([id number]) Public Speaking Coach: Dayami Paula BA, [facility] Diagnosis: *ICD-10-PCS Non-ST elevation (NSTEMI) [...] MV E-wave Vmax 0.8 m/sec MV deceleration [id number] msec MV A-wave Vmax 0.8 m/sec MV [...] Hypokinetic Mid-Posterolateral Hypokinetic Mid-Inferior Akinetic Mid-Inferoseptal Hypokinetic [place]-Septal Akinetic [place]-Anterior Hypokinetic [place]-Lateral Hypokinetic [place]-Inferior Akinetic [place]-Tip Akinetic This report has been electronically sign ed by: _ Blade Preston MD 07/06/2017 08:53:15 Images reviewed and interpretation verif ied [facility] Cardiac Ultrasound Laboratory Daphne Shahid MD ECHO ORDERABLES Performing Organization Address City/State/ZIP Code Phon e Number [facility] Differential, Automated (07/05/2017 4:55 PM EST) P athologist Signature Neutrophils % 77.0 % [facility] Neutr Abs (ANC) 5.26 1.70 - [facility] 6.10 [facility] x10(3)/[facility] LABORATORY Lymphocytes % 13.3 % [facility] Lymphocytes Abs 0.9 0.9 - 3.2 [facility] x10(3)/[facility] LABORATORY Monocytes % 8.2 % [facility] Monocyte Abs 0.6 0.3 - 0.9 [facility] x10(3)/[facility] LABORATORY Eosinophils % 0.7 % [facility] Eosinophils Abs 0.0 0.0 - 0.4 [facility] x10(3)/[facility] LABORATORY Basophils % 0.4 % [facility] Basophils Abs 0.0 0.0 - 0.1 [facility] x10(3)/[facility] LABORATORY Immature Gran % 0.40 % [facility] Comment: Immature granulocytes(IG's)percentage an d absolute count will include metamyelocytes, myelocytes, and promyelo cytes. Blood smears from CBCs yielding IG's will be scanned manually for concor dance. If this scan disagrees with the automated IG or if promyelocytes are not ed, a manual differential will be performed. Melisa Gran Abs 0.03 0.00 - 0.04 x10(3)/[facility] Y [facility] Specimen Anatomical Collection Method Collection Time Receive d Time (Source) Location / / Volume Laterality Blood specimen 07/05/2017 4:55 PM 017 5:24 (specimen) EST PM EST Resulting Agency Comment Spec In Lab Daphne Shahid MD HEMATOLOGY ORDERABLES Performing Organization Address City/State/[place] [address] (ABNORMAL) Hemogram (07/05/2017 4:55 PM EST) Analysis Performed At Patho logist Time Signature WBC 6.8 4.0 - 9.5 [facility] x10(3)/[facility] LABORATORY RBC 4.67 4.58 - [place] Z[place] 5.54 [facility] x10(6)/[facility] LABORATORY Hemoglobin 14.0 13.7 - [facility] 16.[facility] gm/dL [facility] Hematocrit 41.0 40.5 - [facility] 48.5 % [facility] MCV 87.8 82.9 - [facility] 93.1 [facility] LABORATORY MCH 30.0 27.5 - [facility] 32.1 pg [facility] MCHC 34.1 32.0 - [facility] 35.7 gm/dL [facility] Platelets 197 145 - 357 [facility] x10(3)/[facility] LABORATORY RDWSD 46.4 (H) 36.0 - [facility] 45.0 [facility] LABORATORY RDWCV 14.5 (H) 11.4 - [facility] 13.8 % [facility] MPV 9.7 7.6 - 12.9 [facility] LABORATORY nRBC % Auto 0.0 % [facility] nRBC Abs Auto 0.000 0.000 - [facility] 0.000 [facility] x10(3)/[facility] LABORATORY Specimen Anatomical Collection Method Collection Time Receive d Time (Source) Location / / Volume Laterality Blood specimen 07/05/2017 4:55 PM 017 5:24 (specimen) EST PM EST Resulting Agency Comment Spec In Lab Daphne Shahid MD HEMATOLOGY ORDERABLES Performing Organization Address City/State/[place] [address] (ABNORMAL) Cardiac Enzymes (LEB/CGP) (07/05/2017 4:55 PM EST) P athologist Signature Troponin-T 1.69 (H) 0.00 [facility] 0.[facility] ng/mL [facility] Comment: The 99th percentile [...] additional sample may be indicated. Reference: Third Kearsarge Definition of Myocardial Infarction. Journal of the [place] College of Cardiology 2012;60:1581-98 CK, Total 191 0 - 200 unit/L [facility] Specimen Anatomical Collection Method Collection Time Receive d Time (Source) Location / / Volume Laterality Blood specimen 07/05/2017 4:55 PM 017 5:56 (specimen) EST PM EST Resulting Agency Comment Spec In Lab Daphne Shahid MD CHEMISTRY ORDERABLES Performing Organization Address City/State/[place] [address] (ABNORMAL) pro-Brain Natriuretic Peptide (07/05/2017 4:55 PM EST) P athologist Signature ProBNP 1,598 (H) <=125 [facility] Specimen Anatomical Collection Method Collection Time Receive d Time (Source) Location / / Volume Laterality Blood specimen 07/05/2017 4:55 PM 017 5:24 (specimen) EST PM EST Resulting Agency Comment Spec In Lab Daphne Sahhid MD CHEMISTRY ORDERABLES Performing Organization Address City/State/[place] [address] [facility] [address] Magnesium (07/05/2017 4:55 PM EST) athologist Signature Magnesium 0.78 0.69 - 1.07 [facility] mmol/L [facility] Specimen Anatomical Collection Method Collection Time Receive d Time (Source) Location / / Volume Laterality Blood specimen 07/05/2017 4:55 PM 017 5:24 (specimen) EST PM EST Resulting Agency Comment Spec In Lab Daphne Shahid MD CHEMISTRY ORDERABLES Performing Organization Address City/State/ZIP Code Phon e Number [address] (ABNORMAL) Basic Metabolic Panel (non-fasting) (07/05/2017 4:55 PM EST) athologist Signature Glucose Lvl 230 (H) 65 - 199 [facility] mg/dL [facility] Comment: Diabetes: >=200 mg/dL plus symp toms BUN 19 10 - 20 mg/dL [facility] Creatinine 1.04 0.80 - [...] estions. Chloride 100 98 - 107 mmol/L [facility] [...] or in patients with acute kidney failure. http://Hita.com/DHnkdep http://Hita.com/DHMCnkf Specimen Anatomical Collection Method Collection Time Receive d Time (Source) Location / / Volume Laterality Blood specimen 07/05/2017 4:55 PM 017 5:24 (specimen) EST PM EST Resulting Agency Comment Spec In Lab Daphne Shahid MD CHEMISTRY ORDERABLES Performing Organization Address City/[facility] [place] [address] (ABNORMAL) APTT (07/05/2017 4:55 PM EST) P athologist Signature PTT 41 (H) 25 - 35 sec [facility] Comment: The recommended therapeutic range [...] Shahid MD HEMATOLOGY ORDERABLES Performing Organization Address City/[facility]/[place] [address] (ABNORMAL) POCT Glucose (07/05/2017 4:53 PM EST) P athologist Signature POC Glucose 208 (H) 65 - 199 [facility] mg/dL [facility] Comment: Supplemental ranges: <140 mg/dL before meals <180 mg/dL all other times of the day Specimen Anatomical Collection Method Collection Time Receive d Time (Source) Location / / Volume Laterality Blood specimen 07/05/2017 4:53 PM 017 4:53 (specimen) EST PM EST Daphne Shahid MD POINT OF CARE TEST ORDERABLE S Performing Organization Address City/[facility]/[place] [address] EKG 12 Lead (07/05/2017 4:32 PM EST) Component Value Ref Range Test Analysis Performed Pathologis t Method Time At Signature Ventricular rate 97 BPM MUSE SYSTEM Atrial Rate 97 BPM MUSE SYSTEM P-R Interval 148 ms MUSE SYSTEM QRS Duration 96 ms MUSE SYSTEM Q-T Interval 364 ms MUSE SYSTEM QTC Calculated 462 ms MUSE SYSTEM (Bezet) Calculated P [place] 48 degrees MUSE SYSTEM Calculated R [place] -33 degrees MUSE SYSTEM Calculated T [place] 98 degrees MUSE SYSTEM INTERPRETATION Normal sinus [...] Coronary atherosclerosis of unspecified type of vessel, [place] or graft Cardiomyopathy, ischemic Other specified forms [...] post-op day 1 in the AM Give OR if unable to take PO, Routine Given [...] in dextrose 5% 250 mL EST infusion (STACKER) CONTINUOUS PRN, Starting on Wed07/05/17 at 1837, [...] post-op day 1 in the AM Give OR if unable to take PO, Routine atorvastatin [...] 03 (Given - Provider: More Luther RN) 09 (Given - Provider: Em Jones RN) 65 [...] insulin lispro (humaLOG) VIAL injection 0-12 Units(Alix ponce Group 2) 0000 (Not Given - Provider: [...] More Luther, VAMSI)1259 (Given - Provider: More Luther RN)1757 (Given - Provider: Yanet Valdovinos, VAMSI) 0842 (Given - Provider: Em Jones, RN)1307 (Given - Provider: Em Jones, VAMSI) 0-20 [...] Berry RN)1338 (Given - Provider: More Luther RN)220 (Given - Provider: Ale Rangel, VAMSI) 0615 (Given - Provider: Ale Rangel RN)131 (Given - Provider: Em Jones RN) 12.5 [...] Provider: Em Jones RN - Reason: Contraindicated) 09 (See Alternative - Provider: Zac Young RN) 40 mg, Intravenous, DAILY, First dose on Wed07/07/17 at 1900, Until Discontinued, Reconstitute with 10 mL of normal saline to a concentration of 4 mg/mL and infuse slowly over 2 minutes. , Routine pantoprazole (PROTONIX) tablet 40 mg(Linked Group 3) 0 821 (Given - Provider: More Luther RN) 0840 (Given - Provider: Em Jones , VAMSI)0900 (See Alternative - Provider: Em Jones RN) [...] 2 tablet, Oral, DAILY, First dose on 07/08/17 at 2100, Until Discontinued, Post-op day [...] 5 mg, Oral, ONCE, 1 dose, On 07/12/17 at 1700, Routine Continuous Medication Order 07/12/2017 07/13/2017 07/14/2017 AMIOdarone (CORDARONE) 360 mg in dextrose 5% 200 mL in fusion () 0817 (New Bag - Provider: More Luther, RN)1200 (Rate/Dose Change - Provider: More Luther, VAMSI)195 (Rate/Dose Change - Provider: Elba Valverde RN [...] post-op day 1 in the AM Give OR if unable to take PO
Routine Group [...] Lovely Vicente MD PCP - General 04/16/15 [facility] [address] [place] [address] documented as of this encounter
--- OUTSIDE RECORDS SUMMARY | 2022-02-25 08:21 | XMS_ITS | Encounter Summary ---
:1945 Author Organization [facility] [place] [address] Care Team Providers Name Role Phone Adi Costello MD Primary Care Provider Reason for Visit Reason Comments Annual Exam ckeck his groin and melanoma follow-up Encounter Details Date Type Department Care Team Description 11/21/2010 Follow-Up Dermatology Arik Tipton Melanoma (Primary Dx) [facility] MD [place] [id number] DERMATOLOGY DEPT . [place] [id number] (Wo rk) Social History Tobacco Use Types [...] Arik Tipton MD PROBLEM: Melanoma follow-up. HPI oDn Fatima is a 65 y.o. 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 His only complaints are leg cramps, [...] changes: Arik Tipton MD Section of Dermatology [facility] documented in this encounter Plan of Treatment Upcoming Encounters Date Type Specialty Care Team Description 03/26/2022 Office Visit Cardiology Vitaliy Nobles MD [facility] [address] [place], [place] [address] (Wo rk) 06/10/2022 Office Visit Dermatology Laura Scherer MD [facility] [address] TEJA GR-DERMAT [place], [place] [address] (Wo rk) documented as of this encounter Visit Diagnoses Diagnosis Melanoma - Primary Melanoma of skin, site unspecified documented in this encounter Care Teams Pc Maintenance Technician Relationship Specialty Start Date End Date Adi Costello MD PCP - General 06/17/10 09/21/[address] [place] [address] documented as of this encounter
--- OUTSIDE RECORDS SUMMARY | 2022-02-25 08:21 | XMS_ITS | Encounter Summary ---
:1945 Author Organization [facility] [place] [address] Care Team Providers Name Role Phone NeilSom conner STACIE Primary Care Provider Reason for Visit Reason Comments Establish Care OBST GOITER Encounter Details Date Type Department Care Team Description 01/25/2013 Office Visit General Surgery at [facility] er colloid, toxic, [facility] MD Eliseo nodular (Primary Dx) [facility] [place], [place] GENERAL SURGERY [id number] [place], [place] [id number] [phone] Social History Tobacco Use Types Packs/Day Years [...] the thyroid gland were obtained using a [employer] MicroMaxx and an HFL38/13-6 broadband linear array [...] on physical exam. ROS: No H/O asthma, [place], stroke, pulmonary embolus or phlebitis. Comprehensive review [...] MD [facility] CARDIOLOGY [place], [place] [address] (Wo rk) 06/10/2022 Office Visit Dermatology Laura Scherer MD [facility] DR TEJA GR-DERMAT [place], [place] [address] (Wo rk) documented as of [...] 406 ms MUSE SYSTEM (Bezet) Calculated P [place] 52 degrees MUSE SYSTEM Calculated R [place] 0 degrees MUSE SYSTEM Calculated T [place] 40 degrees MUSE SYSTEM INTERPRETATION Normal sinus [...] storm documented in this encounter Care Teams Instructional Developer Relationship Specialty Start Date End Date Som Holliday APRN PCP - General 01/25/13 04/15/[address] [place] [address] documented as of this encounter
--- OUTSIDE RECORDS SUMMARY | 2022-02-25 08:21 | XMS_ITS | Encounter Summary ---
:1945 Author Organization [facility] [place] [address] Care Team Providers Name Role Phone Angela Holliday APRN Primary Care Provider Reason for Referral Surgical (Routine) - Closed Specialty Diagnoses / Procedures Referred By Contact Refer red To Contact General Surgery Diagnoses Elijah Villagomez MD Colacchio, Thomas A, MD [address] [place] [address] [place] [address] [place] [address] Phone: Fax: Referral ID Status Reason Start Date Expiration Date Visits V isits Requested Authorized [id number] Closed Specialty 01/25/2013 07/24/2013 1 1 Service Requested Reason for Visit Reason Comments Thyroid Problem Encounter Details Date Type Department Care Team Description 01/25/2013 Office Visit [facility]ocrinology at [facility] Elijah Fuentes Goiter (Primary Dx) [facility] [address] [place] [phone] [place] [address] [phone] Social History Tobacco Use Types Packs/Day Years [...] History 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 All [...] the thyroid gland were obtained using a SonSenseeaxx and an HFL38/13-6 broadband linear array transducer. [...] MD [facility] [address] [place], [place] [address] (Wo rk) 06/10/2022 Office Visit Dermatology Laura Scherer MD [facility] DR TEJA GR-DERMAT [place], [place] [address] (Wo rk) Scheduled Referrals Name [...] Organization Address City/State/[place] [address] CERNER MILLENNIUM documented in this encounter Visit Diagnoses Diagnosis Goiter - Primary Goiter, unspecified documented in this encounter Care Teams Speedboat Operator Relationship Specialty Start Date End Date Angela Holliday APRN PCP - General 01/25/13 04/15/[address] [place] [address] documented as of this encounter
--- OUTSIDE RECORDS SUMMARY | 2022-02-25 08:21 | XMS_ITS | Encounter Summary ---
:1945 Author Organization [facility] [place] [address] Care Team Providers Name Role Phone Angela Holliday APRN Primary Care Provider Encounter Details Date Type Department Care Team Description 01/25/2013 Clinical [place] [phone] Social History Tobacco Use Types Packs/Day [...] Vitaliy Nobles MD [facility] CARDIOLOGY [place], [place] [address] (Wo rk) 06/10/2022 Office Visit Dermatology Laura Scherer MD [facility] DR TEJA GR[facility]MAT [facility] [place] [place] [address] (Wo rk) documented as of this encounter Visit Diagnoses Not on filedocumented in this encounter Care Teams Converter Operator Relationship Specialty Start Date End Date Angela Holliday APRN PCP - General 01/25/13 04/15/[address] [place] [address] documented as of this encounter
--- OUTSIDE RECORDS SUMMARY | 2022-02-25 08:21 | XMS_ITS | Encounter Summary ---
:1945 Author Organization [facility] [place] [address] Care Team Providers Name Role Phone Angela Holliday APRN Primary Care Provider Encounter Details Date Type Department Care Team Description 03/15/2013 Telephone General Surgery at [facility] Maddison Key, [place] [address] Social History Tobacco Use Types Packs/Day [...] MD [facility] ER [address] TADE[address] [place], [place] [address] (Wo rk) 06/10/2022 Office Visit Dermatology Laura Scherer MD [facility] DR TEJA GR-DERMAT [place], [place] [address] (Wo rk) documented as of this encounter Visit Diagnoses Not on filedocumented in this encounter Care Teams Underwear Welter Relationship Specialty Start Date End Date Angela Holliday APRN PCP - General 01/25/13 04/15/[address] [place] [address] documented as of this encounter
--- OUTSIDE RECORDS SUMMARY | 2022-02-25 08:21 | XMS_ITS | Encounter Summary ---
:1945 Author Organization [facility] [address] Care Team Providers Name Role Phone Angela Holliday APRN Primary Care Provider Encounter Details Date Type Department Care Team Description 03/28/2013 Surgery Main Operating Room Mesha Mcknight, THYROIDECTOMY, [facility] DR Siddiqui [place] [address] [place] [address] [phone] (Wo rk) Social History Tobacco Use Types [...] please call the General Surgery nurse at [phone], since this may mean that you need morecalcium. Follow-up Appointment: Will be scheduled with Dr. Mcknight in 6 weeks Date and time as well as any required labs will be mailed to you Please call [phone] to confirm date and time of your [...] by calcium supplementation. Phone number for questions: [phone] before 5 PM weekdays [phone] after 5 PM and on weekends/holidays Please follow up with Urology as per their recommendations for Bob removal AttachmentsThe following attachments cannot be sent through Care Everywhere. THYROIDECTOMY: WHAT TO EXPECT AT HOME ([place]IC)URINARY CATHETER CARE: AFTER YOUR VISIT ([place])documented in this encounter Medications at Time of [...] Willams MD - 03/28/2013 3:43 PM EDT [facility] Operative Note Patient Name: Gregory Fatima : [id number] MR#: [id number] Case Date: 03/28/2013 Surgeon: Surgeon(s) and Role: [...] Operative Note Patient Name: Gregory Fatima : [id number] MR#: [id number] Case Date: 03/28/2013 Surgeon: Surgeon(s) and Role: [...] Vitaliy Nobles MD [facility] CARDIOLOGY [place], [place] [address] (Wo rk) 06/10/2022 Office Visit Dermatology Laura Scherer MD [facility] DR TEJA GR-DERMAT [facility] [place] [place] [address] (Wo rk) documented as of [...] Organization Address City/State/ZIP Code Phon e Number [address] CERNER MILLENNIUM (ABNORMAL) POCT [...] CARE TEST ORDERABLE S Performing Organization Address City/[facility]/[place] [address] CERNER MILLENNIUM (ABNORMAL) POCT [...] Organization Address City/State/ZIP Code Phon e Number [address] CERNER MILLENNIUM (ABNORMAL) POCT [...] CARE TEST ORDERABLE S Performing Organization Address City/[facility]/ZIP Code Phon e Number [address] CERNER MILLENNIUM (ABNORMAL) POCT [...] Organization Address City/State/ZIP Code Phon e Number [address] CERNER MILLENNIUM (ABNORMAL) POCT [...] Organization Address City/State/[place] [address] CERNER MILLENNIUM (ABNORMAL) POCT [...] CARE TEST ORDERABLE S Performing Organization Address City/[facility]/ZIP Code Phon e Number [address] CERNER MILLENNIUM (ABNORMAL) POCT [...] Organization Address City/State/[place] [address] CERNER MILLENNIUM Specimen to Pathology (surgical or derm) (03/28/2013 12:14 PM EDT) Specimen Anatomical Collection Method Collection Time Receive d Time (Source) Location / / Volume Laterality AP Specimen 03/28/2013 12:14 03/28/2013 PM EDT 12:14 PM EDT [facility]ative [facility] - 03/28/2013 12:14 PM EDT Specimen requisition ordered. ??Separate Pathology report to follow Mesha Mcknight MD PATHOLOGY/CYTOLOGY ORDERABLE S Performing Organization Address City/State/[place] [address] [facility] Pathology Addendum Report (03/28/2013 12:03 PM EDT) Component Value Ref Test Analysis Performed At [facility] gist Range Method Time Signature Addendum [facility] Report ? [facility] ? Provider: ?? MESHA MCKNIGHT Pt. Name: ?? SHERIF FATIMARY Veda ? Acc #: ?[id number] ?Pt. MRN: ?[id number] ? Col Date: ?? 03/28/2013 ?/Sex: ?1945,(68 [...] S Performing Organization Address [facility]/State/[place] [address] [facility] Surgical Pathology Report (03/28/2013 12:03 PM EDT) Component Value Ref Test Analysis Performed At [facility] gist Range Method Time Signature Surgical [facility] Pathology ? [facility] Report ? Provider: ?? MESHA MCKNIGHT Pt. Name: ?? GREGORY FATIMA ? Acc #: ?[id number] ?Pt. MRN: ?[id number] ? Col Date: ?? 03/28/2013 ?/Sex: ?1945,(68 [...] areas of hemorrhage and ? calcifications. ? [facility] ? Provider: ?? MESHA MCKNIGHT Pt. Name: ?? GREGORY FATIMA ? Acc #: ?[id number] ?Pt. MRN: ?[id number] ? Col Date: ?? 03/28/2013 ?/Sex: ?1945,(68 years),Male ? Rec Date: ?? 03/28/2013 ?LOC: ?[facility] ? SURGICAL PATHOLOGY ? SECTIONS/PROCESSING: Transportation Program Director sections are subm itted. (R6) ? B [...] S Performing Organization Address [facility]/State/ZIP Code Phon e Number [place] [id number]OS[address] CERNER MILLENNIUM Frozen Section Report (03/28/2013 12:03 PM EDT) Component Value Ref Test Analysis Performed At [facility] Range Method Time Signature Frozen CERNER Section ? [facility] Report ? Provider: ?? MESHA MCKNIGHT Pt. Name: ?? GREGORY FATIMA ? Acc #: ?[id number] ?Pt. MRN: ?[id number] ? Col Date: ?? 03/28/2013 ?/Sex: ?1945,(68 years),Male ? Rec Date: ?? 03/28/2013 ?LOC: ?[facility] ? FROZEN SECTION REPORT ? ---Frozen Section Report--- ? Part A - Intraoperati ve gross consultation was performed. ??The case was ? discussed by phone with Dr. Mcknight, and no frozen ? section was performed. ? 03/31/13 ??Verified by: ??César STRANGE, Ruben Yusuf, [facility] gist ? The attending [facility] gist whose electronic signature appears on [...] Organization Address City/State/[place] [address] [facility] POCT Glucose (03/28/2013 12:00 PM EDT) P athologist Signature POC Glucose 134 60 - 199 CERNER mg/dL [facility] Comment: Supplemental ranges: <110 mg/dL before meals <200 mg/dL all other times of the day Specimen Anatomical Collection Method Collection Time Receive d Time (Source) Location / / Volume Laterality Blood specimen 03/28/2013 12:00 3 (specimen) PM EDT 12:00 PM EDT Mesha Mcknight MD POINT OF CARE TEST ORDERABLE S Performing Organization Address City/[facility]/ZIP [place] [address] [facility] Specimen to Pathology (surgical or derm) (03/28/2013 11:58 AM EDT) Specimen Anatomical Collection Method Collection Time Receive d Time (Source) Location / / Volume Laterality AP Specimen 03/28/2013 11:58 03/28/2013 AM EDT 11:58 AM EDT Narrative [facility] - 03/28/2013 11:58 AM EDT Specimen requisition ordered. ??Separate Pathology report to follow Mesha Mcknight MD PATHOLOGY/CYTOLOGY ORDERABLE S Performing Organization Address City/[facility]/ZIP [place] [address] [facility] Antibody screen (03/28/2013 9:37 AM EDT) Analysis Performed At Patho logist Time Signature Ab Screen Negative [facility] Expires at [id number] [facility] [id number] on: MILLENNIUM Specimen Anatomical Collection Method Collection Time Receive d Time (Source) Location / / Volume Laterality Blood specimen 03/28/2013 9:37 AM 013 9:37 (specimen) EDT AM EDT Resulting Agency Comment Spec In Lab Mesha Mcknight MD BLOOD BANK ORDERABLES Performing Organization Address City/State/ZIP Code Phon e Number [place] [phone] [facility] [address] CERNER MILLENNIUM ABO/Rh Typing (03/28/2013 [...] Organization Address City/State/ZIP Code Phon e Number [address] CERNER MILLENNIUM Differential, Automated [...] Organization Address City/State/[place] [address] CERNER MILLENNIUM (ABNORMAL) Basic [...] intervals supplied above were not validated at [facility]. Results from pediatri c patients should be [...] Mcknight MD CHEMISTRY ORDERABLES Performing Organization Address City/[facility]/ZIP [place] [address] CERNER MILLENNIUM (ABNORMAL) CBC [...] Organization Address City/State/[place] [address] [facility]ERKERI [facility] POCT Glucose (03/28/2013 9:17 AM EDT) P athologist Signature POC Glucose 108 60 - 199 CERNER mg/dL [facility] Comment: Supplemental ranges: <110 mg/dL before meals <200 mg/dL all other times of the day Specimen Anatomical Collection Method Collection Time Receive d Time (Source) Location / / Volume Laterality Blood specimen 03/28/2013 9:17 AM 013 9:17 (specimen) EDT AM EDT Mesha Mcknight MD POINT OF CARE TEST ORDERABLE S Performing Organization Address City/State/ZIP Code Phon e Number [address] [facility] Specimen to Pathology (surgical or derm) (03/28/2013 8:55 AM EDT) Specimen Anatomical Collection Method Collection Time Receive d Time (Source) Location / / Volume Laterality AP Specimen 03/28/2013 8:55 AM 3 8:54 EDT AM EDT Narrative [facility] - 03/28/2013 8:55 AM E DT Specimen requisition ordered. ??Separate Pathology report to follow Mesha Mcknight MD PATHOLOGY/CYTOLOGY ORDERABLE S Performing Organization Address City/State/ZIP Code Phon e Number [address] [facility] documented in this encounter Visit Diagnoses Not [...] Kesha Gracia RN) 0900 (Given - Provider: Radah christine RN) 50 mg, Oral, EVERY 12 [...] override documented in this encounter Care Teams Consultant Internship Relationship Specialty Start Date End Date Angela Holliday APRN PCP - General 01/25/13 04/15/15 [address] [place] [address] documented as of this encounter
--- OUTSIDE RECORDS SUMMARY | 2022-02-25 08:21 | XMS_ITS | Encounter Summary ---
:1945 Author Organization [facility] Address [facility] [place] [address] Care Team Providers Name Role Phone Unknown Primary Care Provider Unavailable Reason for Visit Reason Comments Skin Check Encounter Details Date Type Department Care Team Description 10/04/2012 Follow-Up Dermatology at Rigoberto Forman soriasis (Primary Dx); Abdelrahman HOOPER MD Neoplasm of unspecified nature of bone, soft tissue, and skin; [address] [facility] Skin lesion of chest wall; [place] [address] Seborrheic psoriasis- scalp and ingtergl uteal area [phone] [facility]-DERMATOLGY [place], [place] [address] (Wo rk) Social History [...] CLINIC NOTE Date of service: 10/04/2012 Don Fatima : 1945 Provider: Rigoberto Albarran MD PROBLEM: [...] you take antibiotics before procedures?no HPI Don Fatima is a 67 y.o. year old male. [...] Cardiology Vitaliy Nobles MD [facility] DR TADEO [place], [place] [address] (Wo rk) 06/10/2022 Office Visit Dermatology Laura Scherer MD [facility] DR TEJA GR-DERMAT [place], [place] [address] (Wo rk) documented as [...] Component Value Ref Test Analysis Performed At [facility] gist Range Method Time Signature Surgical CERNER Pathology ? [facility] Report ? Provider: ?? RIGOBERTO ALBARRAN III Pt. Name: ?? NATALYA , DON E ?A ? Acc #: ?[id number] ? Pt. ? Col Date: ?? 3 [...] ? 10/05/12 Verified by: ? Herman Ovalles MD. ? Dermatopatholo gist ? (Electronic Si gnature) [...] MD PATHOLOGY/CYTOLOGY ORDERABLE S Performing Organization Address City/[facility]/[place] [address] CERNER MILLENNIUM Specimen to [...] MD PATHOLOGY/CYTOLOGY ORDERABLE S Performing Organization Address City/[facility]/[place] [address] CERNER MILLENNIUM documented in this encounter Visit Diagnoses Diagnosis Psoriasis - Primary Other psoriasis Neoplasm of unspecified nature of bone, soft tissue, and skin Skin lesion of chest wall Unspecified disorder of skin and subcuta neous tissue Seborrheic psoriasis- scalp and ingtergl uteal area Other psoriasis documented in this encounter Care Teams Brown Sourer Relationship Specialty Start Date End Date Unknown PCP - General 10/04/12 01/24/13 None documented as of this encounter
--- OUTSIDE RECORDS SUMMARY | 2022-02-25 08:21 | XMS_ITS | Encounter Summary ---
:1945 [place] [address] Care Team Providers Name Role Phone MiyaLokeshAngela STACIE Primary Care Provider Encounter Details Date Type Department Care Team Description 03/28/2013 Anesthesia Event Main Operating Room Meredith Calvert MD [facility] [place] [address] [facility] Nolvia Riojas PA [facility] [place] [address] [place] [address] Anesthesia Record Procedure Summary Procedure Name [...] Cardiology Vitaliy Nobles MD [facility] DR T[address] [place], [place] [address] (Wo rk) 06/10/2022 Office Visit Dermatology Laura Scherer MD [facility] DR TEJA GR-DERMAT [place], [place] [address] (Wo rk) documented as [...] PRN, Starting on Wed03/28/13 at 1013, Until 03/28/13 at 1315, Pain, Anesthesia Intra-op, Routine labetalol [...] Routine documented in this encounter Care Teams Apprentice Painter Hand Relationship Specialty Start Date End Date Angela Holliday APRN PCP - General 01/25/13 04/15/[address] [place] [address] documented as of this encounter
--- OUTSIDE RECORDS SUMMARY | 2022-02-25 08:21 | XMS_ITS | Encounter Summary ---
:1945 Author Organization [facility] [place] [address] Care Team Providers Name Role Phone Unknown Primary Care Provider Unavailable Reason for Visit Reason Comments Other Encounter Details Date Type Department Care Team Description 10/05/2012 Telephone Dermatology at [facility] Rigoberto Garcia III, [address] [place] [address] [facility] [phone] TEJA MARIE-DERMAT [place] [id number] (Wo rk) Social History Tobacco Use Types [...] Office Visit Cardiology Vitaliy Nobles MD [facility] ER DR TADEO [place], [place] [address] (Wo rk) 06/10/2022 Office Visit Dermatology Laura Scherer MD [facility] DR TEJA MARIE-DERMAT [place], [place] [address] (Wo rk) documented as of this encounter Visit Diagnoses Not on filedocumented in this encounter Care Teams Chimney Builder Relationship Specialty Start Date End Date Unknown PCP - General 10/04/12 01/24/13 None documented as of this encounter
--- OUTSIDE RECORDS SUMMARY | 2022-02-25 08:21 | XMS_ITS | Encounter Summary ---
:1945 Author Organization [facility] [place] [address] Care Team Providers Name Role Phone Brody Berrios MD Primary Care Provider Reason for Visit Reason Comments Annual Exam Encounter Details Date Type Department Care Team Description 09/22/2011 Follow-Up Dermatology Arik Tipton Psoriasis (Primary Dx); [facility] MD Jorge Personal history of other malignant neop lasm of skin Drive [place] [phone] DERMATOLOGY DEPT . 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 His only complaints tail bone and scalp [...] Vitaliy Nobles MD [facility] [address] TADE[address] [place], [place] [address] (Wo rk) 06/10/2022 Office Visit Dermatology Laura Scherer MD [facility] DR TEJA GR[facility]MAT [facility] [place] [place] [address] (Wo rk) documented as of this encounter Visit Diagnoses Diagnosis Psoriasis - Primary Other psoriasis Personal history of other malignant neop lasm of skin documented in this encounter Care Teams Brazing Machine Operator Helper Relationship Specialty Start Date End Date Brody Berrios MD PCP - General 09/22/11 10/03/[address] [place] [address] [address] [place] [address] documented as of this encounter
--- OUTSIDE RECORDS SUMMARY | 2022-02-25 08:21 | XMS_ITS | Encounter Summary ---
:1945 [place] [address] Care Team Providers Name Role Phone Holley Hollidayica STACIE Primary Care Provider Encounter Details Date Type Department Care Team Description 03/28/2013 - [facility] 03[facility]29/2013 Barbara Gomes MD Dx) [facility] [address] [address] [phone] Social History Tobacco Use Types Packs/Day Years [...] please call the General Surgery nurse at [phone], since this may mean that you need morecalcium. Follow-up Appointment: Will be scheduled with Dr. Mcknight in 6 weeks Date and time as well as any required labs will be mailed to you Please call [phone] to confirm date and time of your [...] by calcium supplementation. Phone number for questions: [phone] before 5 PM weekdays [phone] after 5 PM and on weekends/holidays Please follow up with Urology as per their recommendations for Bob removal AttachmentsThe following attachments cannot be sent through Care Everywhere. THYROIDECTOMY: WHAT TO EXPECT AT HOME (KENYAN)URINARY CATHETER CARE: AFTER YOUR VISIT (KENYAN)documented in this encounter Medications at Time of [...] is a 68 y.o. male presents to [facility] today for total thyroidectomy. See full Consult [...] Willams MD - 03/28/2013 3:43 PM EDT [facility] Operative Note Patient Name: Gregory Fatima : [id number] MR#: [id number] Case Date: 03/28/2013 Surgeon: Surgeon(s) and Role: [...] patient was extubated and taken to the [facility] in stable condition. At the end ofthe [...] Operative Note Patient Name: Gregory Fatima : [id number] MR#: [id number] Case Date: 03/28/2013 Surgeon: Surgeon(s) and Role: [...] Vitaliy Nobles MD [facility] CARDIOLOGY [place], [place] [address] (Wo rk) 06/10/2022 Office Visit Dermatology Laura Scherer MD [facility] DR TEJA GR-DERMAT [facility] [place], [place] [address] (Wo rk) documented as of [...] Address City/State/ZIP Code Phon e Number [address] CERNER MILLENNIUM (ABNORMAL) POCT [...] ORDERABLE S Performing Organization Address City/[facility]/[place] [address] CERNER MILLENNIUM (ABNORMAL) POCT [...] Address City/State/ZIP Code Phon e Number [address] CERNER MILLENNIUM (ABNORMAL) POCT [...] ORDERABLE S Performing Organization Address City/[facility]/ZIP Code Phon e Number [address] CERNER MILLENNIUM (ABNORMAL) POCT [...] Address City/State/ZIP Code Phon e Number [address] CERNER MILLENNIUM (ABNORMAL) POCT [...] Organization Address City/State/[place] [address] CERNER MILLENNIUM (ABNORMAL) POCT [...] ORDERABLE S Performing Organization Address City/[facility]/ZIP Code Phon e Number [address] CERNER MILLENNIUM (ABNORMAL) POCT [...] Organization Address City/State/[place] [address] CERNER MILLENNIUM Specimen to Pathology (surgical or derm) (03/28/2013 12:14 PM EDT) Specimen Anatomical Collection Method Collection Time Receive d Time (Source) Location / / Volume Laterality AP Specimen 03/28/2013 12:14 03/28/2013 PM EDT 12:14 PM EDT Narrative [facility]NER [facility] - 03/28/2013 12:14 PM EDT Specimen requisition ordered. ??Separate Pathology report to follow Mesha Mcknight MD PATHOLOGY/CYTOLOGY ORDERABLE S Performing Organization Address City/State/[place] [address] [facility] Pathology Addendum Report (03/28/2013 12:03 PM EDT) Component Value Ref Test Analysis Performed At [facility] gist Range Method Time Signature Addendum [facility] Report ? [facility] ? Provider: ?? MESHA MCKNIGHT Pt. Name: ?? SHERIF FATIMARY Veda ? Acc #: ?[id number] ?Pt. MRN: ?[id number] ? Col Date: ?? 03/28/2013 ?/Sex: ?1945,(68 [...] MD PATHOLOGY/CYTOLOGY ORDERABLE S Performing Organization Address [facility]/State/[place] [address] [facility] Surgical Pathology Report (03/28/2013 12:03 PM EDT) Component Value Ref Test Analysis Performed At [facility] gist Range Method Time Signature Surgical [facility] Pathology ? [facility] Report ? Provider: ?? MESHA MCKNIGHT Pt. Name: ?? GREGORY FATIMA ? Acc #: ?[id number] ?Pt. MRN: ?[id number] ? Col Date: ?? 03/28/2013 ?/Sex: ?1945,(68 [...] areas of hemorrhage and ? calcifications. ? [facility] ? Provider: ?? MESHA MCKNIGHT Pt. Name: ?? GREGORY FATIMA ? Acc #: ?[id number] ?Pt. MRN: ?[id number] ? Col Date: ?? 03/28/2013 ?/Sex: ?1945,(68 years),Male ? Rec Date: ?? 03/28/2013 ?LOC: ?[facility] ? SURGICAL PATHOLOGY ? SECTIONS/PROCESSING: Stylist Assistant sections are subm itted. (R6) ? B [...] MD PATHOLOGY/CYTOLOGY ORDERABLE S Performing Organization Address [facility]/State/ZIP Code Phon e Number [place] [phone] CERNER MILLENNIUM Frozen Section Report (03/28/2013 12:03 PM EDT) Component Value Ref Test Analysis Performed At [facility] Range Method Time Signature Frozen CERNER Section ? [facility] ? Provider: ?? MESHA MCKNIGHT Pt. Name: ?? GREGORY FATIMA ? Acc #: ?[id number] ?Pt. MRN: ?[id number] ? Col Date: ?? 03/28/2013 ?/Sex: ?1945,(68 years),Male ? Rec Date: ?? 03/28/2013 ?LOC: ?[facility] ? FROZEN SECTION REPORT ? ---Frozen Section Report--- ? Part A - Intraoperati ve gross consultation was performed. ??The case was ? discussed by phone with Dr. Mcknight, and no frozen ? section was performed. ? 03/31/13 ??Verified by: ??César STRANGE, Ruben Yusuf, [facility] gist ? The attending [facility] gist whose electronic signature appears on [...] Organization Address City/State/[place] [address] [facility] PO[facility] Glucose (03/28/2013 12:00 PM EDT) P athologist Signature POC Glucose 134 60 - 199 CERNER mg/dL [facility] Comment: Supplemental ranges: <110 mg/dL before meals <200 mg/dL all other times of the day Specimen Anatomical Collection Method Collection Time Receive d Time (Source) Location / / Volume Laterality Blood specimen 03/28/2013 12:00 3 (specimen) PM EDT 12:00 PM EDT Mesha Mckngiht MD POINT OF CARE TEST ORDERABLE S Performing Organization Address City/[facility]/ZIP Code [place] [address] [facility] Specimen to Pathology (surgical or derm) (03/28/2013 11:58 AM EDT) Specimen Anatomical Collection Method Collection Time Receive d Time (Source) Location / / Volume Laterality AP Specimen 03/28/2013 11:58 03/28/2013 AM EDT 11:58 AM EDT Narrative [facility]NER MILLENNIUM - 03/28/2013 11:58 AM EDT Specimen requisition ordered. ??Separate Pathology report to follow Mesha Mcknight MD PATHOLOGY/CYTOLOGY ORDERABLE S Performing Organization Address City/[facility]/ZIP Code [place] [address] [facility] Antibody screen (03/28/2013 9:37 AM EDT) Analysis Performed At Patho logist Time Signature Ab Screen Negative [facility] Expires at [id number] [facility] 2358 on: MILLENNIUM Specimen Anatomical Collection Method Collection Time Receive d Time (Source) Location / / Volume Laterality Blood specimen 03/28/2013 9:37 AM 013 9:37 (specimen) EDT AM EDT Resulting Agency Comment Spec In Lab Mesha Mcknight MD BLOOD BANK ORDERABLES Performing Organization Address City/State/ZIP Code Phon e Number [place] [phone] [facility] [address] CERNER MILLENNIUM ABO/Rh Typing [...] Address City/State/ZIP Code Phon e Number [address] CERNER MILLENNIUM Differential, Automated [...] Organization Address City/State/[place] [address] CERNER MILLENNIUM (ABNORMAL) Basic [...] intervals supplied above were not validated at [facility]. Results from pediatri c patients [...] Mcknight MD CHEMISTRY ORDERABLES Performing Organization Address City/[facility]/ZIP Code Ph[place] [address] CERNER MILLENNIUM (ABNORMAL) CBC [...] Organization Address City/State/[place] [address] [facility]ERKERI [facility] POCT Glucose (03/28/2013 9:17 AM EDT) P athologist Signature POC Glucose 108 60 - 199 CERNER mg/dL [facility] Comment: Supplemental ranges: <110 mg/dL before meals <200 mg/dL all other times of the day Specimen Anatomical Collection Method Collection Time Receive d Time (Source) Location / / Volume Laterality Blood specimen 03/28/2013 9:17 AM 013 9:17 (specimen) EDT AM EDT Mesha Mcknight MD POINT OF CARE TEST ORDERABLE S Performing Organization Address City/State/ZIP Code Phon e Number [address] [facility] Specimen to Pathology (surgical or derm) (03/28/2013 8:55 AM EDT) Specimen Anatomical Collection Method Collection Time Receive d Time (Source) Location / / Volume Laterality AP Specimen 03/28/2013 8:55 AM 3 8:54 EDT AM EDT Narrative [facility] - 03/28/2013 8:55 AM E DT Specimen requisition ordered. ??Separate Pathology report to follow Mesha Mcknight MD PATHOLOGY/CYTOLOGY ORDERABLE S Performing Organization Address City/State/ZIP Code Phon e Number [address] [facility] documented in this encounter Visit Diagnoses Diagnosis [...] Intravenous, EVERY 1 HOUR PRN, St arting 03/28/13 at 1317, Until Wed03/28/13 at 1636, High Blood Pressure, SBP > 160. , PACU Recovery, Routine OXYcodone (ROXICODONE) immediate release tablet 5-10 mg 1921 (Given - Provider: Kesha Gracia RN) 5-10 mg, Oral, EVERY 4 HOURS PRN, Starti ng Wed03/28/13 at 1247, Until Wed03/29/13 at 1311, Pain, Routine No Frequency Medication Order 03/27/2013 03/28/2013 03/29/2013 lidocaine HCl (URO-JET) 2 % gel (COMPLETED) 1405 (Given - Provider: nAgela Breaux RN - Comment: given by dr. bowman when inserting catheter) 1 dose, Starting Wed03/28/13 at 1405, Unt il Wed03/29/13 at 0214, MARQUES SOW: cabinet override documented in this encounter Care Teams Landman Relationship Specialty Start Date End Date Angela Holliday APRN PCP - General 01/25/13 04/15/15 [address] [place] [address] documented as of this encounter
--- OUTSIDE RECORDS SUMMARY | 2022-02-25 08:22 | XMS_ITS | Encounter Summary ---
:[address] [facility] Address [address] [place] [address] Care Team Providers Name Role Phone Lovely Vicente MD Primary Care Provider Encounter Details Date Type Department Care Team Description 01/17/2021 Lab Requisition [facility] Outr Resulting Lab, Pathology & Laboratory Provider [facility] [address] [place] [address] Social History Tobacco Use Types Packs/Day Years [...] nature PSA 2.9 0.0 - 6.5 ng/mL [facility] Specimen Blood - Venous blood (substance) Narrative [facility] - 01/17/2021 17:46 EDT NOTE: Serum PSA concentration should not be in terpreted as absolute evidence for the presence or absence of malignant disease. Assayed on Siemens [employer] Centaur XPT usi ng chemiluminescent technology.??Values obtained by using different assay methods cannot be used interchangeably. Performing Organization Address City/State/ZIP Code Phon e Number [facility] [address] [place] [address] SERVICES documented in this encounter Visit Diagnoses Not on filedocumented in this encounter Care Teams Personal Financial Advisor Relationship Specialty Start Date End Date Lovely Vicente MD PCP - General 07/13/14 documented as of this encounter
--- OUTSIDE RECORDS SUMMARY | 2022-02-25 08:22 | XMS_ITS | Encounter Summary ---
:[address] [facility] Address [address] [place] [address] Care Team Providers Name Role Phone Unavailable Primary Care Provider Unavailable Encounter Details Date Type Department Care Team Description 03/05/2014 Hospital Encounter [facility] [place] Unknown, Provider, [facility] 0 [facility] [phone] [place] [address] (Work) [phone] Social History Tobacco Use Types Packs/Day Years Used Date Never Assessed Sex Assigned at Date Recorded Not on file documented as of this encounter Discharge Disposition Disposition Code Departure Means Destination Home or Self Nursing Home documented in this encounter Plan of Treatment Not on filedocumented as of this encounter Visit Diagnoses Not on filedocumented in this encounter
--- OUTSIDE RECORDS SUMMARY | 2022-02-25 08:22 | XMS_ITS | Clinical Summary ---
:1945 [address] [facility] Address [address] [place] [address] Care Team Providers Name Role Phone Lovely [...] i n the results section. COVID-19 TEST [facility] Today 01/27/2022 14:30 LAB PCR EDT COVID-19 TESTING Routine 01/27/2022 14:30 Results for this EDT procedure are i n the results section. from Last 3 Months Results PSA TOTAL, DIAGNOSTIC (02/20/2022 9:04 EDT) Pathologist Sig nature PSA 2.7 <=6.5 ng/mL [facility] Y SERVICES Specimen Blood - Venous blood (substance) Narrative [facility] - 02/20/2022 18:17 EDT NOTE: Serum PSA concentration should not be in terpreted as absolute evidence for the presence or absence of malignant disease. Assayed on [employer] Centaur XPT usi ng chemiluminescent technology.??Values obtained by using different assay methods cannot be used interchangeably. Performing Organization Address City/State/ZIP Code Phon e Number [facility] [address] [place] [address] SERVICES COVID-19 TEST [facility] LAB PCR (01/27/2022 14:30 EDT) Specimen Swab Performing Organization Address City/[facility]/ZIP Code Phon e Number [facility] [address] [place] [address] SERVICES COVID-19 TESTING (01/27/2022 14:30 EDT) COVID-19 rt-PCR Negative Negative [facility] Result Comment: CENTER LABORATORY This test [...] performed using the meliton SARS-CoV-2 assay ([employer] on the Meliton 6800 System Performing Lab Meliton 6800 [facility] Lab [facility] SERVICES Specimen Swab Performing Organization Address City/[facility]/ZIP Code Phon e Number [facility] [address] [place] [address] SERVICES from Last 3 Months Care Teams It Sales Consultant Relationship Specialty Start Date End Date Lovely Vicente MD PCP - General 07/13/14
--- OUTSIDE RECORDS SUMMARY | 2022-02-25 08:22 | XMS_ITS | Encounter Summary ---
:1945 Author Organization [facility] Address [address] [place] [address] Care Team Providers Name Role Phone Lovely Vicente MD Primary Care Provider Encounter Details Date Type Department Care Team Description 08/11/2019 Lab Requisition [facility] Unknown, Provider, Pathology & Laboratory [facility] [address] [facility] [place] [address] Social History Tobacco Use Types Packs/Day Years [...] Pathologist Sig nature Salmonella PCR Negative Negative [facility]OR[facility]ORY SERVICES Shigella/Enteroinvasive Negative Negative [facility] R E. coli LABORATORY SERVICES HN LAB CAMPYLOBACTER PCR Negative Negative [facility] ER LABORATORY SERVICES Shiga Toxin PCR Negative Negative [facility]OR[facility]ORY SERVICES Specimen Feces - Specimen from rectum (specimen) Performing Organization Address City/State/ZIP Code Phon e Number [facility] [address] [place] [address] SERVICES documented in this encounter Visit Diagnoses Not on filedocumented in this encounter Care Teams Marketing Programs Manager Relationship Specialty Start Date End Date Lovely Vicente MD PCP - General 07/13/14 documented as of this encounter
--- OUTSIDE RECORDS SUMMARY | 2022-02-25 08:22 | XMS_ITS | Encounter Summary ---
:1945 Author Organization Address [address] [place] [address] Care Team Providers Name Role Phone Unknown, Provider Primary Care Provider Encounter Details Date Type Department Care Team Description 03/05/2014 Results Only [facility] Eris Taylor MD Laboratory Services - [address] [place] [address] [place] [address] [phone] Social History Tobacco Use Types Packs/Day Years Used Date Never Assessed Sex Assigned at Date Recorded Not on file documented as of this encounter Plan of Treatment Not on filedocumented as of this encounter Procedures Procedure Name Priority Date/Time Associated Diagnosis [facility] SURGICAL PATHOLOGY Routine 03/05/2014 10:34 Resul [...] ? DON HOANG ? Accession #: ? [id number] ? : ? 1945 (Age: 68) ??M [...] S, L) and EGJ ar e two ocrdova-white tissues (0.2 x 0.1 x 0.1 cm and 0.2 x 0.2 x 0.1 cm). Entirely submitted in C1Madiha Ordonez 03/07/2014 12:31 PM End of Report Specimen Performing Organization Address City/State/ZIP Code Phon e Number [facility] [address] [place] [address] SERVICES [facility] [address] [place] [address] documented in this encounter Visit Diagnoses Not on filedocumented in this encounter Care Teams Walnut Dehydrator Operator Relationship Specialty Start Date End Date Unknown, Provider, PCP - General 03/07/14 07/12/14 documented as of this encounter
--- OUTSIDE RECORDS SUMMARY | 2022-02-25 08:22 | XMS_ITS | Encounter Summary ---
:1945 Author Organization [facility] Address [address] [place] [address] Care Team Providers Name Role Phone Lovely Vicente MD Primary Care Provider Encounter Details Date Type Department Care Team Description 08/11/2019 Lab Requisition [facility] Unknown, Provider, Pathology & Laboratory [facility] [address] [facility] [place] [address] Social History Tobacco Use Types Packs/Day Years [...] (08/11/2019 14:35 EST) Giardia and Cryptosporidium Cryptosporidium [facility] Cryptosporidium Antigen Neg and Antigen Neg and CENTER Giardia Antigen Neg Giardia Antigen Neg LABORATORY SERVICES Specimen Feces - Specimen from rectum (specimen) Performing Organization Address City/State/ZIP Code Phon e Number [facility] [address] [place] [address] SERVICES documented in this encounter Visit Diagnoses Not on filedocumented in this encounter Care Teams Senior Java Programmer Analyst Relationship Specialty Start Date End Date Lovely Vicente MD PCP - General 07/13/14 documented as of this encounter
--- OUTSIDE RECORDS SUMMARY | 2022-02-25 08:22 | XMS_ITS | Encounter Summary ---
:1945 Author Organization [facility] Address [address] [place] [address] Care Team Providers Name Role Phone Lovely Vicente MD Primary Care Provider Encounter Details Date Type Department Care Team Description 02/20/2022 Lab Requisition [facility] Outr Resulting Lab, Pathology & Laboratory Provider [facility] [address] [place] [address] Social History Tobacco Use Types Packs/Day Years [...] Pathologist Sig nature PSA 2.7 <=6.5 ng/mL [facility] LABORATOR Y SERVICES Specimen Blood - Venous blood (substance) Narrative [facility] SERVICES - 02/20/2022 18:17 EDT NOTE: Serum PSA concentration should not be in terpreted as absolute evidence for the presence or absence of malignant disease. Assayed on [employer] Centaur XPT usi ng chemiluminescent technology.??Values obtained by using different assay methods cannot be used interchangeably. Performing Organization Address City/State/ZIP Code Phon e Number [facility] [address] [place] [address] SERVICES documented in this encounter Visit Diagnoses Not on filedocumented in this encounter Care Teams Bag Sewer Relationship Specialty Start Date End Date Lovely Vicente MD PCP - General 07/13/14 documented as of this encounter
--- OUTSIDE RECORDS SUMMARY | 2022-02-25 08:22 | XMS_ITS ---
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 Problem Critical ischemia I99.8 Active of lower extremity Problem Atherosclerosis I70.90 Active 3871 6007 Problem Type 2 diabetes E11.628 Active mellitus with other skin complications Problem 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 40 ; Acquired deformi ty of right foot M21.961 ; L luis term current use of i nsulin Z79.4 ; History of art erial bypass of lower extremi ty Z95.828 ; Atherosclerosis I70.90 and History of Lisfr anc amputation of fo ot Z89.439 [facility] Feb, Type 2 diabet es mellitus [address] [place] with diabe tic neuropathy, [address] unspecified E11. 40 ; Acquired deformi ty of right foot M21.961 ; L luis term current use of i nsulin Z79.4 ; History of art erial bypass of lower extremi ty Z95.828 ; Atherosclerosis I70.90 and History of Lisfr anc amputation of fo ot Z89.439 [facility] November, [place] [address] [facility] [address] [facility] November, Type 2 [place] [address] with diabeti c neuropathy, unspecified E11. 40 ; Acquired deformi ty of right foot M21.961 ; L luis term current use of i nsulin Z79.4 ; History of art erial bypass of lower extremi ty Z95.828 ; Atherosclerosis I70.90 and History of Lisfr anc amputation of fo ot Z89.439 [facility] 10 Aug, 2019 Type 2 [place] [address] with other skin complications E1 1.628 ; Tinea pedis of l eft foot B35.3 ; Type 2 d iabetes mellitus with di abetic neuropathy, unsp ecified E11.40 ; Acquire d deformity of right foot M2 1.961 ; intermediate current use of insulin Z79.4 ; History of arterial bypass of lower extremity Z95.828 and Athe rosclerosis I70.90 [facility] Jun, [place] [address] [address] Jun, [place] [address] [address] Jun, Type 2 diabet es mellitus [place], [place] with other skin [address] complications E1 1.628 ; Acquired deformi ty of right foot M21.961 ; T ype 2 diabetes mellitu s with diabetic neuropa thy, unspecified E11. 40 ; data deliverables manager current use of insulin Z79.4 and Histor y of arterial bypass of lower extremity Z95.82 8 [facility] Feb, Type 2 [place] [address] with other s kin complications E1 1.628 ; Acquired deformi ty of right foot M21.961 ; T ype 2 diabetes mellitu s with diabetic neuropa thy, unspecified E11. 40 ; intermediate current use of insulin Z79.4 and Histor y of arterial bypass of lower extremity Z95.82 8 [facility] November, Tinea pedis o f left foot [place], [place] B35.3 ; Ty pe 2 diabetes [address] mellitus with ot her skin complications E1 1.628 ; Acquired deformi ty of right foot M21.961 ; T ype 2 diabetes mellitu s with diabetic neuropa thy, unspecified E11. 40 ; data deliverables manager current use of insulin Z79.4 and Histor y of arterial bypass of lower extremity Z95.82 8 [facility] 8 [facility] November, [place] [address] [address] Aug, Type 2 diabet es mellitus [place], [place] with diabe tic neuropathy, [address] unspecified E11. 40 ; Acquired deformi ty of right foot M21.961 ; P eripheral arterial disease I73.9 ; History of arter ial bypass of lower extremi ty Z95.828 ; intermediate curren t use of insulin Z79.4 an d History of Lisfranc amputat ion of foot Z89.439 UNKNOWN Jul, [facility] 11 Jun, 2018 Type 2 [place] [address] with diabeti c neuropathy, unspecified E11. [address] [facility] Apr, Edema of both legs R60.0 ; [place], [place] Acquired d eformity of right [address] foot M21.961 ; P eripheral arterial disease I73.9 ; History of arter ial bypass of lower extremi ty Z95.828 ; data deliverables manager curren t use of insulin Z79.4 an d Type 2 diabetes mellitu s with diabetic neuropa thy, unspecified E11. [address] [facility] Mar, [place] [address] [address] Mar, Edema of both legs R60.0 ; [place] Acquired d eformity of right [address] foot M21.961 ; P eripheral arterial disease I73.9 ; History of arter ial bypass of lower extremi ty Z95.828 ; data deliverables manager curren t use of insulin Z79.4 an d Type 2 diabetes mellitu s with diabetic neuropa thy, unspecified E11. 40 [facility] Feb, Edema of both legs R60.0 ; [place] [address] Ulcer of lef t calf, limited to breakdown of skin L97.221 ; Acquired defor mity of right foot M21.9 61 ; Peripheral arter ial disease I73.9 ; History of arterial bypass of lower extremity Z95.828 ; Long t erm current use of insulin Z 79.4 and Type 2 diabetes mellitus with diabetic ne uropathy, unspecified E11. 40 [facility] 1 Feb, [place] [address] [facility] Feb, Edema of both legs R60.0 ; [place] [address] Ulcer of rig ht calf, limited to [...] uropathy, unspecified E11. 40 [facility] [address] [facility] Feb, [place] [address] [facility] [address] [facility] [address] Feb, [place] [address] [facility] [address] [facility] [address] Jan, [place] [address] [facility] [address] [facility] [address] Jan, [place] [address] [facility] [address] [facility] [address] Jan, [place] [address] [facility] [address] [facility] [address] Jan, [place] [address] [facility] [address] [facility] [address] Jan[place] [address] [facility] [address] [facility] [address] Dec, [place] [address] [facility] [address] [facility] [address] Dec, [place] [address] [facility] [address] [facility] [address] Dec, [place] [address] [facility] [address] [facility] [address] Dec, [place] [address] [facility] Dec, [place] [address] [facility] [address] [facility] [address] Dec, [place] [address] [facility] November, [place] [address] [facility] November, [place] [address] [facility] November, [place] [address] [facility] November, [place] [address] [facility] November, [place] [address] [facility] November, [place] [address] UNKNOWN November, [facility] [address] [place] November, [place]ICE [place] [address] [facility] November, [place] [address] [facility] Oct, [place] [address] [facility] Oct, [place] [address] [facility] [address] [facility] Oct, [place] [address] [facility] [address] 18 Oct, 2017 [place] [address] [facility] 16 Oct, 2017 [place] [address] [facility] [address] [place] 16 Oct, 2017 [facility] [address] [facility] Oct, [place] [address] [facility] [address] [facility] Oct, [place] [address] [facility] Oct, [place] [address] [facility] [address] Sep, [facility] [address] [facility] Sep, [place] [address] [facility] [address] [place] Sep, [place] [address] [facility] [address] [place] Sep, [place] [address] [facility] [address] Sep, [place] [address] [facility] [address] [place] Sep, Critical ischemi a of lower [place] [address] extremity I 99.8 ; Local infection of the skin and subcutaneous tis lindsey, unspecified L08. 9 and Type 2 diabetes mellitu s with other skin complicatio ns E11.628 [facility] Sep, [place] [address] [facility] [address] [facility] [address] Sep, [place] [address] [facility] [address] [facility] [address] Sep, [place] [address] [facility] [address] [facility] [address] 14 Sep, [address] [place] [address] [facility] Sep, [place] [address] [facility] [address] [facility] Sep, [place] [address] [facility] [address] [facility] Sep, [place] [address] [facility] [address] [facility] Sep, [place] [address] [facility] [address] [facility] [address] Aug, [place] [address] [facility] [address] [place] Aug[facility] [address] [facility] [address] [place] Aug, [place] [address] SUR[facility] [address] [facility] Aug, [place] [address] SURG[facility] [address] [facility] Aug, [place] [address] [facility] [address] [facility] Aug, [place] [address] ORTHOPEDIC OFFICE [address] [facility] Aug, Pre-op exam Z01.818 [place] [address] [facility] Aug, [place] [address] [facility] Aug, [place] [address] [facility] Aug, [place] [address] IMMUNIZATIONS No Known Immunizations SOCIAL HISTORY Qualifiers [...] subcutaneously 22 24h Active units/mL daily Pen Cresco Active Ciclopirox Externally Twice 1 application 12h [...] PT/INR 2017-12-16 PT 15.0 9.3-11.4 INR 1.5 X Foot R 3V 2017-12-14 See Below For Report SED RATE 2017-12-14 ESR 16 0-20 CRP-INFLAM 2017-12-14 CRP <0.2 0.0-0.9 COMPMET 2017-12-14 GLUC 134 74-106 BUN 20 7-18 CREATS 0.93 0.55-1.30 EGFR >60 >=60 NA 139 136-144 K+ 4.2 3.7-5.0 CL 102 98-108 CO2 32 22-32 CA 9.0 8.5-10.1 TP 7.1 6.5-8.1 ALB 3.9 3.4-5.0 TBIL 0.4 0.3-1.2 DBIL 0.1 0.0-0.2 ALKP 75 46-116 AST 26 15-37 ALT 36 13-78 CBC WITH AUTO DIFF 2017-12-14 WBC 7.0 [...] 13.8 MO% 10.4 EO% 1.4 BA% 0.3 MULTIPLE LABS 2017-11-22 X Chest 1V 2017-11-23 [...] For Report MR Lower Ext R w/o ([id number]) 2017-09-16 See Below For Report X Foot [...] 98-108 CO2 31 22-32 CA 8.9 8.5-10.1 PREALBUMIN 2017-09-09 PREALBUMIN 23 9-32 ALBUMIN 2017-09-09 ALB 3.3 3.4-5.0 CBC WITHOUT DIFF (Hemogram) 2017-09-09 WBC 7.9 4.0-12.0 RBC 4.0 4.5-6.0 HGB 10.7 13.5-18.0 HCT 36.7 42.0-52.0 MCV 93 78-100 MCH 27.0 27.0-32.0 MCHC 29.2 32.0-36.0 RDW 17.3 11.0-14.0 PLT 248 140-440 CRP-INFLAM 2017-09-09 CRP 1.1 0.0-0.9 SED RATE 2017-09-09 ESR 30 0-20 X [...] A1c 03/04/18 - 6.7, [facility] annually, f/u - bilateral leg edema, Pt [...] at wound center,lab work done 03/07/2018 @ [facility], Patient came in with tubigrip bilateral , wound clin est, wound clinest, Wound CTR-follow up, Wound CTR-follow up, Wound CTR-follow up, Peer to Peer w/ Dr. Espino, Wound CTR-follow up, Wound CTR-follow up, Pre K Teacher Documentation, LAB, Wound CTR-follow up, Wound CTR-follow up, Wound CTR-follow up, Wound CTR-follow up, LAB, LAB, Wound CTR- follow up, Wound CTR-follow up, Wound CTR-follow up, Pre K Teacher Documentation, [facility], Wound CTR-follow up, Wound CTR-follow up, Pull PICC Line, Wound CTR-follow up, Wound CTR-follow up, LAB, Still taking doxycycline 100mg? , Wound CTR-follow up, Wound CTR-follow up, Wound CTR-follow up, Pre K Teacher Documentation, Wound CTR-follow up, Wound CTR-follow up, Call back, Pre K Teacher Documentation, Pre K Teacher Documentation, Pre K Teacher Documentation, Wound CTR-follow up, WCC, Wound CTR-follow up, Wound CTR-follow up, labs, D/C planning, bailey smetatarsal amputation of right foot, LAB, LAB, Wound CTR-NEW Insurance Providers [facility] Health Member Patient Patient Patient Patient Patient Subscriber Subscriber Subscriber Group Insurance Plan Plan Plan Plan ID Relationship Address Phone Name Date of ID Name Date of No Type Insurance Insurance Insurance Coverage to Subscriber Address Phone Name Dates OTHER MALINA [phone] OTHER GREGORY [id number] GRANT 1^MAIN CONSTITUTION PARTY [employer] [employer] PAYOR [place] PAYOR [id number] MEDICARE 3000 GOFFS MEDICARE self GREGORY [id number] [facility] [id number] SELF PAY [address] STREET SELF PAY self [place] [id number] AFTER BLUE [place] AFTER BLUE [facility] [id number] S-BLUE [phone] S-BLUE [place]REG[place] [id number] [address] [address] [place] [address] [place]
--- OUTSIDE RECORDS SUMMARY | 2022-02-25 08:22 | XMS_ITS | Encounter Summary ---
:1945 Author Organization [facility] Address [address] [place] [address] Care Team Providers Name Role Phone Unknown, Provider Primary Care Provider Encounter Details Date Type Department Care Team Description 07/11/2014 Results Only [facility] Shrtuhi Horowitz MD Laboratory Services - [address] [place] [address] [place] [address] 0 [facility] [place] [address] [phone] Social History Tobacco Use Types Packs/Day Years [...] 8:55 EST) Pathology Report: SURGICAL PATHOLOGY REPORT [facility] Reports generated via electronic interface contain sorin ginal data; LABORATORY however they are lacking the format of the original re port. SERVICES Caution should be taken when reading/interpreting unfo rmatted reports. Name: ? DON HOANG ? Accession #: ? [id number] ? : ? 1945 (Age: 69) ??M [...] 6.5 x 3.0 cm in aggreg ate). Steel Rule Die Maker Apprentice sections are submitted in 1- 10 (approximately 40% of the specimen is submitted). Viry Nunez 07/12/2014 11:21 AM End of Report Specimen Performing Organization Address City/State/ZIP Code Phon e Number [facility] [address] [place] [address] SERVICES documented in this encounter Visit Diagnoses Not on filedocumented in this encounter Care Teams Cable Splicer Relationship Specialty Start Date End Date Unknown, Provider, PCP - General 03/07/14 07/12/14 documented as of this encounter
--- OUTSIDE RECORDS SUMMARY | 2022-02-25 08:22 | XMS_ITS | Encounter Summary ---
:1945 Author Organization [facility] Address [address] [place] [address] Care Team Providers Name Role Phone Lovely Vicente MD Primary Care Provider Encounter Details Date Type Department Care Team Description 04/04/2021 Lab Requisition [facility] Outr Resulting Lab, Pathology & Laboratory Provider [facility] [address] [place] [address] Social History Tobacco Use Types Packs/Day Years [...] (04/03/2021 12:15 EDT) Giardia and Cryptosporidium Cryptosporidium [facility] Cryptosporidium Antigen Neg and Antigen Neg and CENTER Giardia Antigen Neg Giardia Antigen Neg LABORATORY SERVICES Specimen Feces - Specimen from rectum (specimen) Performing Organization Address City/State/ZIP Code Phon e Number [facility] [address] [place] [address] SERVICES documented in this encounter Visit Diagnoses Not on filedocumented in this encounter Care Teams Oil Field Equipment Mechanic Supervisor Relationship Specialty Start Date End Date Lovely Vicente MD PCP - General 07/13/14 documented as of this encounter
--- OUTSIDE RECORDS SUMMARY | 2022-02-25 08:22 | XMS_ITS | Encounter Summary ---
:1945 Author Organization [facility] Address [address] [place] [address] Care Team Providers Name Role Phone oLvely Vicente MD Primary Care Provider Encounter Details Date Type Department Care Team Description 04/04/2021 Lab Requisition [facility] Outr Resulting Lab, Pathology & Laboratory Provider [facility] [address] [place] [address] Social History Tobacco Use Types Packs/Day Years [...] Pathologist Sig nature Salmonella PCR Negative Negative [facility] Shigella/Enteroinvasive Negative Negative [facility] SERVICES HN LAB CAMPYLOBACTER PCR Negative Negative [facility] Shiga Toxin PCR Negative Negative [facility] Specimen Feces - Specimen from rectum (specimen) Performing Organization Address City/State/ZIP Code Phon e Number [facility] [address] [place] [address] SERVICES documented in this encounter Visit Diagnoses Not on filedocumented in this encounter Care Teams Pipe Puller Relationship Specialty Start Date End Date Lovely Vicente MD PCP - General 07/13/14 documented as of this encounter
--- OUTSIDE RECORDS SUMMARY | 2022-02-27 15:08 | XMS_ITS | Encounter Summary ---
:1945 Author Organization [place] [address] Care Team Providers Name Role Phone Lovely Vicente MD Primary Care Provider Reason for Visit Reason Onset Date Comments Follow-up 02/23/2022 Medication adjustmen t and new med Encounter Details Date Type Department Care Team Description 02/23/2022 Telephone Cardiology at [facility] Martha Comer, Follow-up ([facility] RN adjustbrandon t and new med) [place] [address] Social History Tobacco Use Types Packs/Day [...] order for BMP and sent to [facility]. will call [facility] to make an appointment for next Wednesday03/04/22. [...] tablet) daily. She will correct his pill process planner to the new dose. Will need to check with STEPHANIE Poole about repeat BMP to recheck K+ level. If yes he will get the test done at [facility]. They are aware that he will need to make an appt at [facility] to get the test done. Entresto: states [...] if he qualifies for assistance from the [email or web address]. She is thankful for the assistance, as he is taking insulin that is very expensive too. Instructed to call this technical document writer, if he does qualify for assistance from [employer] and that he has gotten the medication [...] Visit Cardiology Vitaliy Nobles MD [facility] ER [address] [place], [place] [address] (Wo rk) 06/10/2022 Office Visit Dermatology Laura Scherer MD [facility] ER DR TEJA [facility] [place], [place] [address] (Wo rk) documented as of this encounter Visit Diagnoses Not on filedocumented in this encounter Care Teams Air Purifier Servicer Relationship Specialty Start Date End Date Lovely Vicente MD PCP - General 04/16/[address] [place] [address] documented as of this encounter
--- OUTSIDE RECORDS SUMMARY | 2022-02-27 15:08 | XMS_ITS | Encounter Summary ---
:1945 Author Organization [facility] [place] [address] Care Team Providers Name Role Phone Lovely Vicente MD Primary Care Provider Encounter Details Date Type Department Care Team Description 12/12/2021 Telephone Cardiology at [facility] [place] [address] Social History Tobacco Use Types Packs/Day [...] - 12/12/2021 11:36 AM EDT RTC to [employer] regarding pharmacists questions as to whether the [...] Nobles MD [facility] ER [address] [place], [place] [address] (Wo rk) 06/10/2022 Office Visit Dermatology Laura Scherre MD [facility] DR TE[address] [place], [place] [address] (Wo rk) documented as of this encounter Visit Diagnoses Not on filedocumented in this encounter Care Teams Liner Roll Changer Relationship Specialty Start Date End Date Lovely Vicente MD PCP - General 04/16/[address] [place] [address] documented as of this encounter
--- OUTSIDE RECORDS SUMMARY | 2022-02-27 15:08 | XMS_ITS | Encounter Summary ---
:1945 [place] [address] Care Team Providers Name Role Phone Lovely Vicente MD Primary Care Provider Encounter Details Date Type Department Care Team Description 12/30/2021 Notes Only Cardiac Rehab [facility] Linnea Deluca, [facility] [place] [address] Social History Tobacco Use Types Packs/Day [...] Failure team. DX: HFrEF. Referral placed to [facility] documented in this encounter Plan of Treatment Upcoming Encounters Date Type Specialty Care Team Description 03/26/2022 Office Visit Cardiology Vitaliy Nobles MD [facility] ER [address] [place], [place] [address] (Wo rk) 06/10/2022 Office Visit Dermatology Laura Scherer MD [facility] DR TEJA [address] [place], [place] [address] (Wo rk) documented as of this encounter Visit Diagnoses Not on filedocumented in this encounter Care Teams Health Services Director Relationship Specialty Start Date End Date Lovely Vicente MD PCP - General 04/16/15 [employer] [address] [place] [address] documented as of this encounter
--- OUTSIDE RECORDS SUMMARY | 2022-02-27 15:08 | XMS_ITS | Encounter Summary ---
:1945 Author Organization [facility] Address [facility] [place] [address] Care Team Providers Name Role Phone Lovely Vicente MD Primary Care Provider Reason for Visit Auth/Cert Specialty Diagnoses / Procedures Referred By Contact Refer red To Contact Diagnoses ASCVD (arteriosclerotic cardiovascular disease) [I25.10] Vitaliy Nobles MD [facility] Procedures PRO PERC TRLUML CORONARY STENT W/ANGIO ONE ART/BRANCH CARDIAC CATHETERIZATION STENT PLACEMENT-SINGLE MAJOR CORONARY ARTERY OR BRANCH [facility] [place] [address] Referral ID Status Reason Start Date Expiration Date Visits Requ ested Visits Authorized [id number] 1 1 Encounter Details Date Type Department Care Team Description 01/30/2022 Hospital Encounter Short Stay Unit at Vitaliy Nobles, CVD (arteriosclerotic cardiovascular disease); Barbara Blue MD 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 Please follow up with your electric power line examiner in the next 4-6 weeks. We have made a referral to cardiac rehab. Please see the attached instructions regarding care to your right wrist access site. AttachmentsThe following attachments cannot be sent through Care Everywhere. Coronary Angiogram: Post-op (Kazakh)documented in this encounter Medications at Time of [...] (with breakfast). Tablet 4 days a week. atorvastatin (Lipitor) Take 10 mg by mouth [...] 3 02/19/2022 mg Tablet 2 times daily. losartan (COZAAR) 100 Take 50 mg by mouth 0 04/1402/26/2022 mg Tablet daily. documented as of this encounter Progress Notes Carlos Alberto Murray RN - 01/30/2022 4:54 PM EDT [facility] Short Stay Unit Discharge Note [...] recent PCI presenting for staged PCI to [facility]. The pt states he has been ok. [...] recent PCI presenting for staged PCI to [facility]. 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 I had referred him to cardiac rehab at [facility] last month per HF team. He was waiting until this intervention before starting the program. Reviewed managing angina /use of sl nitroglycerin. Given parameters for home exercise. 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 We discussed short walks several times per day. Will send [facility] his discharge summary from this admission. The patient should be contacted by the Program within 1- 2 weeks from discharge. Brief Op Note - Vitaliy Nobles MD - 01/30/2022 10:19 AM EDT Images from the original note were not included. [facility] [place] [address] [place] [address] CORONARY ANGIOGRAM AND PERCUTANEOUS CORONARY INTERVENTION REPORT Patient: Don Fatima : 1945 MR number: [id number] Date of Service: 01/30/2022 Employment Consultant: Vitaliy Nobles MD Fellow: KEYON Elizabeth INDICATION: [...] a long 2.0 x 26 mm ORION Boone TUCKER stent and positioned it at the [...] using a 2.0 x 26 mm ORION Boone TUCKER stent. This completes the revascularization ofall [...] Vitaliy Nobles MD [facility] [address] [place], [place] [address] ( rk) 06/10/2022 Office Visit Dermatology Laura Scherer MD [facility] DR [address] [place], [place] [address] (Wo rk) Scheduled Orders Name [...] P athologist Signature Neutrophils % 71.8 % [facility] Neutr Abs (ANC) 3.96 1.70 - [facility] 6.10 [facility] x10(3)/[facility] LABORATORY Lymphocytes % 16.3 % [facility] Lymphocytes Abs 0.9 0.9 - 3.2 [facility] x10(3)/[facility] LABORATORY Monocytes % 10.0 % [facility] Monocyte Abs 0.6 0.3 - 0.9 [facility] x10(3)/[facility] LABORATORY Eosinophils % 0.5 % [facility] Eosinophils Abs 0.0 0.0 - 0.4 [facility] x10(3)/[facility] LABORATORY Basophils % 0.5 % [facility] Basophils Abs 0.0 0.0 - 0.1 [facility] x10(3)/[facility] LABORATORY Immature Gran % 0.90 % [facility] Comment: Immature granulocytes(IG's)percentage an d absolute count will include metamyelocytes, myelocytes, and promyelo cytes. Blood smears from CBCs yielding IG's will be scanned manually for concor dance. If this scan disagrees with the automated IG or if promyelocytes are not ed, a manual differential will be performed. Melisa Gran Abs 0.05 (H) 0.00 - 0.04 x10(3)/[facility] LABORATORY Specimen Anatomical Collection Method Collection Time Receive d Time (Source) Location / / Volume Laterality Blood 01/30/2022 2:12 PM 2 2:37 EDT PM EDT Resulting Agency Comment Spec In Lab Eddi Elizabeth Jr., MD HEMATOLOGY ORDERABLES Performing Organization Address City/State/ZIP Code Phon e Number [place] [phone] (ABNORMAL) Hemogram (01/30/2022 2:12 PM EDT) Analysis Performed At Patho logist Time Signature WBC 5.5 4.0 - 9.5 [facility] x10(3)/[facility] LABORATORY RBC 4.30 (L) 4.58 - [facility] 5.54 [facility] x10(6)/[facility] LABORATORY Hemoglobin 12.7 (L) 13.7 - [facility] 16.[facility] g/dL [facility]ORATORY Hematocrit 39.4 (L) 40.5 - [facility] 48.5 % [facility] LABORATORY MCV 91.6 82.9 - [facility] 93.1 fL [facility] LABORATORY MCH 29.5 27.5 - [facility] 32.1 pg [facility] LABORATORY MCHC 32.2 32.0 - [facility] 35.7 g/dL [facility] LABORATORY Platelets 172 145 - 357 [facility] x10(3)/[facility] LABORATORY RDWSD 54.5 (H) 36.0 - [facility] 45.0 [facility] LABORATORY RDWCV 16.4 (H) 11.4 - [facility] 13.8 % [facility] LABORATORY MPV 9.2 7.6 - 12.9 [facility] LABORATORY nRBC % Auto 0.0 % [facility] nRBC Abs Auto 0.000 0.000 - [facility] 0.000 [facility] x10(3)/[facility] LABORATORY Specimen Anatomical Collection Method Collection Time Receive d Time (Source) Location / / Volume Laterality Blood 01/30/2022 2:12 PM 2 2:37 EDT PM EDT Resulting Agency Comment Spec In Lab Eddi Elizabeth Jr., MD HEMATOLOGY ORDERABLES Performing Organization Address City/State/[place] [address] (ABNORMAL) Basic Metabolic Panel (non-fasting) (01/30/2022 2:12 PM EDT) athologist Signature Glucose Lvl 163 65 - 199 [facility] mg/dL [facility] LABORATORY Comment: Diabetes: >=200 mg/dL plus symp toms BUN 30 (H) 10 - 20 mg/dL [facility]OR[facility]ORY Creatinine 1.47 0.80 - 1.50 mg/dL [facility] [...] - 15 mmol/L [facility] LABOR[facility]ORY Calcium 9.2 8.5 - 10.5 mg/dL [facility] LABORATORY Estimated GFR 49 (L) >=60 mL/min/1.73 m?? [facility] [...] Nobles MD CHEMISTRY ORDERABLES Performing Organization Address City/[facility]/ZIP Code Phon e Number [address] POCT Glucose (01/30/2022 1:41 PM EDT) athologist Signature POC Glucose 148 65 - 199 [facility]/dL [facility] LABORATORY Comment: Supplemental ranges: <140 mg/dL before meals <180 mg/dL all other times of the day Specimen Anatomical Collection Method Collection Time Receive d Time (Source) Location / / Volume Laterality Blood 01/30/2022 1:41 PM 2 1:41 EDT PM EDT Vitaliy Nobles MD POINT OF CARE TEST ORDERABLE S Performing Organization Address City/[facility]/ZIP Code Phon e Number [address] POCT Glucose (01/30/2022 10:48 AM EDT) athologist Signature POC Glucose 193 65 - 199 [facility] mg/dL [facility] [...] Organization Address City/State/[place] [address] EKG 12 Lead (01/30/2022 10:33 AM EDT) Component Value Ref Range Test Analysis Performed Pathologis t Method Time At Signature Ventricular rate 64 BPM MUSE SYSTEM Atrial Rate 64 BPM MUSE SYSTEM P-R Interval 162 ms MUSE SYSTEM QRS Duration 94 ms MUSE SYSTEM Q-T Interval 422 ms MUSE SYSTEM QTC Calculated 435 ms MUSE SYSTEM (Bezet) Calculated P [place] 41 degrees MUSE SYSTEM Calculated R [place] -27 degrees MUSE SYSTEM Calculated T [place] 104 degrees MUSE SYSTEM INTERPRETATION Normal sinus rhythm MUSE SYSTEM Anterolateral infarct (cited on or before 09-DEC-2021) Abnormal ECG When compared with ECG of 10-DEC-2021 11:17, No significant change was found Confirmed by Gary Perez ([id number]) on 01/30/2022 5:57:5 2 PM Specimen Anatomical [...] SYSTEM - 01/30/2022 2:09 PM ED T ?[facility] ? Cardiac Cathete rization/Intervention Report ? Patient Name: Kushal, Don E. ? Procedure Date: 01/30/2022 ? A #: [id number] ? Primary Physician: Nobles, Vitaliy P ? Case #: [id number] ? File Name: [id number] ? Catheterization Order Number: [id number] ? [facility] ? Final Report [place], [place] ? Patient Name: ? Don E. Stewa rt ? ID#: ?[id number] ? : ?1945 ? Procedure Date: ? [...] Urgent. The indication for ?the cardiac cath rn visit is stable kn own CAD. Chest [...] guiding catheter an d a 3.[address] ??20 Mhz ?using Manual pullback. ??Imagin [...] ?? A premounted 2.00 x 26 mm [place] Boone (TUCKER) ? was deployed wi a maximum [...] Wedelivered along 2.0 x 26 mm ORION Boone ? TUCKER stent and p ositioned it [...] dose administered prior to arrival in the cardiac cath rn. ?Recommended anti-platelet/anti- thrombotic regimen: ?Continue aspirin 81 [...] require ?modification of this regimen. C onsult [facility] Interventional Cardiology for ?questions. ?The 1 year bleeding risk as nusrat culated by the PRECISE DAPT score is High ?risk. ?High Bleeding Risk - Anticoagul ation and DAPT: ?- ??Assess ischemic and bleedin g risks using validated risk predictors ?(e.g. CHADS2-VASC, HAS-BLED, RI ECISE DAPT, DAPT Score) ?- ??Keep anticoagulant [...] using a 2.0 x 26 mm ORION Boone TUCKER stent. ?This completes the revasculariz ation [...] MD CARDIAC CATH ORDERABLES Performing Organization Address City/[facility]/ZIP Code Phon e Number CARDIOMAC SYSTEM (ABNORMAL) POCT Glucose (01/30/2022 9:04 AM EDT) P athologist Signature POC Glucose 212 (H) 65 - 199 [facility] mg/dL [facility] LABORATORY Comment: Supplemental ranges: <140 mg/dL before meals <180 mg/dL all other times of the day Specimen Anatomical Collection Method Collection Time Receive d Time (Source) Location / / Volume Laterality Blood 01/30/2022 9:04 AM 2 9:04 EDT AM EDT Vitaliy Nobles MD POINT OF CARE TEST ORDERABLE S Performing Organization Address [facility] [place] [address] (ABNORMAL) POCT Glucose (01/30/2022 8:10 AM EDT) P athologist Signature POC Glucose 224 (H) 65 - 199 [facility] mg/dL [facility] LABORATORY Comment: Supplemental ranges: <140 mg/dL before meals <180 mg/dL all other times of the day Specimen Anatomical Collection Method Collection Time Receive d Time (Source) Location / / Volume Laterality Blood 01/30/2022 8:10 AM 2 8:10 EDT AM EDT Vitaliy Sandra Nobles MD POINT OF CARE TEST ORDERABLE S Performing Organization Address [facility]/[place]IP [place] [address] documented in this encounter Visit Diagnoses Diagnosis ASCVD (arteriosclerotic cardiovascular d isease) Unspecified cardiovascular disease 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 ASHD (arteriosclerotic heart disease) Coronary atherosclerosis of unspecified type of vessel, circle or graft ASCVD (arteriosclerotic cardiovascular d isease) Unspecified cardiovascular disease documented in this encounter Admitting Diagnoses Diagnosis CAD (coronary artery disease) Coronary atherosclerosis of unspecified type of vessel, circle or graft documented in this encounter Administered Medications Inactive Administered Medications - up to 3 most recent administrations Medication Order MAR Action Action Date Dose Rate Site clopidogreL (Plavix) 300 mg tablet 1 dose, Starting on Wed01/30/22 at 1039, Until Wed at 1045, MADDISON FARMER: cabinet overryi clopidogreL (Plavix) tablet 600 mg Given [...] Procedure), Routine niCARdipine (Cardene) (100 mcg/mL) dilution (GRINDER OUTSIDE DIAMETER) (CANCELED ) 0927 (Given - Provider: Vitaliy [...] (Intra-Procedure) documented in this encounter Care Teams Supervisor Drawing Relationship Specialty Start Date End Date Lovely Vicente MD PCP - General 04/16/[address] [place] [address] documented as of this encounter
--- OUTSIDE RECORDS SUMMARY | 2022-02-27 15:08 | XMS_ITS | Encounter Summary ---
:1945 [place] [address] Care Team Providers Name Role Phone Lovely Vicente MD Primary Care Provider Encounter Details Date Type Department Care Team Description 12/25/2021 Office Visit Cardiology at [facility] Liz Poole, Chronic systolic heart [facility] [place] [address] Cardiology Dept [phone] [place], [place] [address] Social History Tobacco Use Types [...] As per DC Summary - Admitted to [facility] on 12/08/21, [facility] [...] mg PO daily in place of Lasix. [place] is new for him and he will [...] regurgitation present. 07/07/2019 - 07/21/2019 Zio Patch Hr Systems Analyst The patient had a minimum heart [...] hyperkalemia 4.9 today 6. Post-op atrial fibrillation [id number] 7 (CHF, HTN, DM, vascular disease, thromboembolism) Eliquis 7. PAD 08/06/2017: Right 1st, 2nd, 3rd toe amputation 08/11/2017: Left??femoral arterial access, RLE??angiogram, Balloon angioplasty of R PT 10/25/2017: right popliteal-pedal bypass at [facility] 8. Hypothyrodism S/p thyroidectomy for goiter Levothyroxine ?? Plan: 1 month follow up with labs Liz Poole PA-C 12/25/2021 documented in this encounter Plan of Treatment Upcoming Encounters Date Type Specialty Care Team Description 03/26/2022 Office Visit Cardiology Vitaliy Nobles MD [facility] CARDIOLOGY [place], [place] [address] (Wo rk) 06/10/2022 Office Visit Dermatology Laura Scherer MD [facility] DR [address] [place], [place] [address] (Wo rk) documented as of this encounter Results (ABNORMAL) pro-Brain Natriuretic Peptide (12/25/2021 7:46 AM EDT) athologist Signature ProBNP 1,380 (H) <=124 [facility] pg/mL [facility] Specimen Anatomical Collection Method Collection Time Receive d Time (Source) Location / / Volume Laterality Blood 12/25/2021 7:46 AM 8:01 EDT AM EDT Resulting Agency Comment Spec In Lab Zulma Plunkett MD CHEMISTRY ORDERABLES Performing Organization Address City/State/ZIP [place] [address] (ABNORMAL) Basic Metabolic Panel (non-fasting) (12/25/2021 7:46 AM EDT) athologist Signature Glucose Lvl 272 (H) 65 - 199 [facility] mg/dL [facility] Comment: Diabetes: >=200 mg/dL plus symp toms BUN 62 (H) 10 - 20 mg/dL [facility]OR[facility]ORY Creatinine 1.81 (H) 0.80 - 1.50 mg/dL [facility] LABOR[facility]ORY Sodium 134 (L) 135 - [...] 15 mmol/L [facility]OR[facility] Calcium 9.4 8.5 - [...] Address City/State/ZIP [place] [address] documented in this encounter Visit Diagnoses Diagnosis Chronic systolic heart failure documented in this encounter Care Teams Electric Deicer Inspector Relationship Specialty Start Date End Date Lovely Vicente MD PCP - General 04/16/[address] [place] [address] documented as of this encounter
--- OUTSIDE RECORDS SUMMARY | 2022-02-27 15:08 | XMS_ITS | Encounter Summary ---
:1945 Author Organization [facility] Address [facility] [place] [address] Care Team Providers Name Role Phone Lovely Vicente MD Primary Care Provider Reason for Visit Reason Comments Prior Authorization Entresto 24-26mg tablets Encounter Details Date Type Department Care Team Description 02/20/2022 Specialty Pharmacy Pharmacy at [facility] Lamberto Smith Prior Authorization [facility] J (Entresto 24-26mg Drive tablets) [place] [id number] Social History Tobacco Use Types Packs/Day Years [...] Don Fatima Patient : 1945 Patient Address: [address] [place] [address] [place] [id number] (home) Medication Name: ENTRESTO 24 MG-26 MG TABLET Medication ID: [id number] Patient Location: [facility] CARDIOLOGY 4A Patient Location Comment: Medication Strength Frequency Requested: Entresto 24-26mg tablets / One tablet twice daily Qty/Day Supply: New Start: New to Therapy Diagnosis & ICD-10 Code: Chronic systolic heart failure, I50.22 Subscriber Insurance: [employer] [facility] Subscriber Insurance Comment: Fax: Physician: ARIK CARRERA Physician Comment : PA Status: NO PA REQUIRED Insurance mandated Pharmacy: Unknown Fillable at [facility]: Yes Insurance requirements/notes: None Copay: $119.01 (goes to coverage gap/odalys monteiro) Copay assistance: Treater Copay assistance comment: If cost isn't affordable, then we'll suggest enrollment in the currently open [facility] Heart Failure zoila, which provides up to $1000 in copay assistance. If zoila closes, or doesn't work out, then the patient can attempt enrollment in the airplane gas tank liner assembler assistance program, the [employer] Patient Assistance [employer] (NPAF). At which point we'd refer to [facility] for assistance with enrollment. Pharmacy [...] MD [facility] [address] [place], [place] [address] (Wo rk) 06/10/2022 Office Visit Dermatology Laura Scherer MD [facility] [address] [place], [place] [address] (Wo rk) documented as of this encounter Visit Diagnoses Not on filedocumented in this encounter Care Teams Auto Body Repairman Relationship Specialty Start Date End Date Lovely Vicente MD PCP - General 04/16/[address] [place] [address] documented as of this encounter
--- OUTSIDE RECORDS SUMMARY | 2022-02-27 15:08 | XMS_ITS | Encounter Summary ---
:1945 Author Organization [facility] [place] [address] Care Team Providers Name Role Phone Lovely Vicente MD Primary Care Provider Reason for Visit Auth/Cert Specialty Diagnoses / Procedures Referred By Contact Refer red To Contact Diagnoses ASCVD (arteriosclerotic cardiovascular disease) [I25.10] Vitaliy Nobles MD [facility] Procedures PRO PERC TRLUML CORONARY STENT W/ANGIO ONE ART/BRANCH CARDIAC CATHETERIZATION STENT PLACEMENT-SINGLE MAJOR CORONARY ARTERY OR BRANCH [facility] [place] [address] Referral ID Status Reason Start Date Expiration Date Visits Requ ested Visits Authorized [id number] 1 1 Encounter Details Date Type Department Care Team Description 01/30/2022 Laboratory Lab 3L Katalina ASCVD (arterios clerotic Appointment [facility] cardiovas cular disease) [place] [address] Social History Tobacco Use Types Packs/Day Years [...] MD [facility] ER CARDIOLOGY [place], [place] [address] (Wo rk) 06/10/2022 Office Visit Dermatology Laura Scherer MD [facility] [address] [place], [place] [address] (Wo rk) documented as of [...] (ABNORMAL) Differential, Automated (01/30/2022 7:19 AM EDT) [facility] gist Method Time Signature Neutrophils % 77.9 % [facility] Neutr Abs (ANC) 5.31 1.70 - [facility] 6.10 [facility] x10(3)/[facility] LABORATORY Lymphocytes % 12.0 % [facility] Lymphocytes Abs 0.8 (L) 0.9 - 3.2 [facility] x10(3)/[facility] [place] [facility]ORATORY Monocytes % 8.1 % [facility] Monocyte Abs 0.6 0.3 - 0.9 [facility] x10(3)/[facility]OR[facility]ORY Eosinophils % 0.4 % [facility] Eosinophils Abs 0.0 0.0 - 0.4 [facility] x10(3)/[facility]OR[facility]ORY Basophils % 0.6 % [facility] Basophils Abs 0.0 0.0 - 0.1 [facility] x10(3)/[facility] LABORATORY Immature Gran % 1.00 % [facility] Comment: Immature granulocytes(IG's)percentage an d absolute count will include metamyelocytes, myelocytes, and promyelo cytes. Blood smears from CBCs yielding IG's will be scanned manually for concor dance. If this scan disagrees with the automated IG or if promyelocytes are not ed, a manual differential will be performed. Melisa Gran Abs 0.07 (H) 0.00 - 0.04 x10(3)/[facility] LABORATORY Specimen Anatomical Collection Method Collection Time Receive d Time (Source) Location / / Volume Laterality Blood 01/30/2022 7:19 AM 7:21 EDT AM EDT Resulting Agency Comment Spec In Lab [facility] HEMATOLOGY ORDERABLES Performing Organization Address City/State/ZIP Code Phon e Number [place] [phone] (ABNORMAL) Hemogram (01/30/2022 7:19 AM EDT) Analysis Performed At Patho logist Time Signature WBC 6.8 4.0 - 9.5 [facility] x10(3)/[facility] [place] LABORATORY RBC 4.32 (L) 4.58 - [facility] 5.54 [facility] x10(6)/[facility] LABORATORY Hemoglobin 13.0 (L) 13.7 - [facility] g/dL [facility] Hematocrit 39.8 (L) 40.5 - [facility] 48.5 % [facility] MCV 92.1 82.9 - [facility] 93.1 [facility] LABORATORY MCH 30.1 27.5 - [place] [facility] 32.1 pg [facility] MCHC 32.7 32.0 - [facility] 35.7 g/dL [facility] Platelets 172 145 - 357 [facility] x10(3)/[facility] [place] LABORATORY RDWSD 54.5 (H) 36.0 - [place] [facility] 45.0 [facility] LABORATORY RDWCV 16.2 (H) 11.4 - [facility] 13.8 % [facility] MPV 9.0 7.6 - 12.9 [facility] LABORATORY nRBC % Auto 0.0 % [facility] nRBC Abs Auto 0.000 0.000 - [facility] 0.000 [facility] x10(3)/[facility] LABORATORY Specimen Anatomical Collection Method Collection Time Receive d Time (Source) Location / / Volume Laterality Blood 01/30/2022 7:19 AM 7:21 EDT AM EDT Resulting Agency Comment Spec In Lab [facility] HEMATOLOGY ORDERABLES Performing Organization Address City/State/[place] [address] (ABNORMAL) Basic Metabolic Panel (non-fasting) (01/30/2022 7:19 AM EDT) P athologist Signature Glucose Lvl 237 (H) 65 - 199 [facility] mg/dL [facility] Comment: Diabetes: >=200 mg/dL plus symp toms BUN 34 (H) 10 - 20 mg/dL [facility] Creatinine 1.45 0.80 - 1.50 mg/dL [facility] [...] 107 mmol/L [facility] CO2 30 22 - 31 mmol/L [facility] Anion Gap 11 5 - 15 mmol/L [facility] Calcium 9.5 8.5 - 10.5 mg/dL [facility] Estimated GFR 50 (L) >=60 mL/min/1.73 m?? [facility] Comment: This patient's estimated GFR [...] City/State/ZIP Code Phon e Number [place] [phone] [facility] documented in this encounter Visit Diagnoses Diagnosis ASCVD (arteriosclerotic cardiovascular d isease) Unspecified cardiovascular disease documented in this encounter Care Teams Oncologist Relationship Specialty Start Date End Date Lovely Vicente MD PCP - General 04/16/[address] [place] [address] documented as of this encounter
--- OUTSIDE RECORDS SUMMARY | 2022-02-27 15:08 | XMS_ITS | Clinical Summary ---
:1945 Author Organization [facility] [place] [address] Care Team Providers Name Role Phone Lovely [...] Pen subcutaneously 3 times daily (before meals). 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 Dayami Buckner 12/24/2021 Orders Only Cardiology JEMIMA Gannon PA (arteriosclerot ic cardiovascular disease) 12/15/2021 Telephone Cardiology Barbara Mera RN 12/12/2021 Refill Cardiology Janneth Padilla Medication R efill H, PA (Torsemide) 12/12/2021 Telephone Cardiology Barbara Mera RN [...] MD [facility] [place], [place] [address] (Wo rk) 06/10/2022 Office Visit Dermatology Laura Scherer MD [facility] ER [address] [place] [address] (Wo rk) Health Maintenance Due Date Last Done Comments Covid-19 Vaccine (#1) 1950 Pneumoccocal Vaccine: 65+ (1 - PCV) 1952 Hepatitis C Screening 1964 Tdap adult 1965 Tetanus vaccine 1965 Zoster vaccine (1 of 2) 1996 AAA Screen 2011 Colonoscopy 01/16/2019 01/16/2014, 01/16/2014 Influenza (Flu) vaccine (1 of 1 - 03/26/2022 03/29/2013, Influenza standard series) Medical Devices Implanted Type Area Set Up Mechan[employer] Device Shelf Model / Identifier Expiration Serial / Date Lot Cable,Cut,Edg,Blnt,Ss,3tpr ([id number]) - [id number] IMPLANTS Midline: [employer] 04/01/2022 [id number] / Implanted: Qty: 4 on 07/07/2017 by Yuan Retana MD at [facility] [employer] - / [id number] Procedures Procedure Name Priority Date/Time Associated Diagnosis [...] Time Signature WBC 7.2 4.0 - 9.5 [facility] x10(3)/[facility] LABORATORY RBC 4.41 (L) 4.58 - [place] RYAN 5.54 [facility] x10(6)/[facility] LABORATORY Hemoglobin 13.2 (L) 13.7 - [facility] 16.5 g/dL [facility] Hematocrit 40.9 40.5 - [facility] R[facility] 48.5 % [facility] MCV 92.7 82.9 - [place] [facility] 93.1 fL [facility] MCH 29.9 27.5 - [place] 32.1 pg [facility] MCHC 32.3 32.0 - [place] 35.7 g/dL [facility] Platelets 191 145 - 357 [facility] x10(3)/[facility] LABORATORY RDWSD 53.6 (H) 36.0 - [facility] 45.0 [facility] LABORATORY RDWCV 15.6 (H) 11.4 - [facility] 13.8 % [facility] MPV 8.7 7.6 - 12.9 [facility] LABORATORY nRBC % Auto 0.0 % [facility] LABORATORY nRBC Abs Auto 0.000 0.000 - [facility] 0.000 [facility] x10(3)/[facility] LABORATORY Specimen Anatomical Collection Method Collection Time Receive d Time (Source) Location / / Volume Laterality Blood 02/19/2022 8:06 AM 8:09 EDT AM EDT Resulting Agency Comment Spec In Lab Liz BROWN HEMATOLOGY ORDERABLES Performing Organization Address City/State/ZIP Code Phon e Number [place] [phone] (ABNORMAL) Differential, Automated (02/19/2022 8:06 AM EDT)Only the most recent of9 resultswithin the time period is included. [facility] gist Method Time Signature Neutrophils % 76.0 % [facility] LABORATORY Neutr Abs (ANC) 5.49 1.70 - [facility] 6.10 [facility] x10(3)/[facility] LABORATORY Lymphocytes % 10.8 % [facility] LABORATORY Lymphocytes Abs 0.8 (L) 0.9 - 3.2 [facility] x10(3)/[facility] LABORATORY Monocytes % 10.2 % [facility] LABORATORY Monocyte Abs 0.7 0.3 - 0.9 [facility] x10(3)/[facility] LABORATORY Eosinophils % 1.2 % [facility] LABORATORY Eosinophils Abs 0.1 0.0 - 0.4 [facility] x10(3)/[facility] LABORATORY Basophils % 0.8 % [facility] Basophils Abs 0.1 0.0 - 0.1 [facility] x10(3)/[facility] LABORATORY Immature Gran % 1.00 % [facility] Comment: Immature granulocytes(IG's)percentage an d absolute count will include metamyelocytes, myelocytes, and promyelo cytes. Blood smears from CBCs yielding IG's will be scanned manually for concor dance. If this scan disagrees with the automated IG or if promyelocytes are not ed, a manual differential will be performed. Melisa Gran Abs 0.07 (H) 0.00 - 0.04 x10(3)/mcL [facility] LABORATORY Specimen Anatomical Collection Method Collection Time Receive d Time (Source) Location / / Volume Laterality Blood 02/19/2022 8:06 AM 2 8:09 EDT AM EDT Resulting Agency Comment Spec In Lab Liz BROWN HEMATOLOGY ORDERABLES Performing Organization Address City/[facility]/[place] [address] (ABNORMAL) pro-Brain Natriuretic Peptide (02/19/2022 8:06 AM EDT)Only the most recent of2 resultswithin the time period is included. athologist Signature ProBNP 984 (H) <=449 pg/mL [facility] LABORATORY Specimen Anatomical Collection Method Collection Time Receive d Time (Source) Location / / Volume Laterality Blood 02/19/2022 8:06 AM 2 8:09 EDT AM EDT Resulting Agency Comment Spec In Lab Zulma Plunkett MD CHEMISTRY ORDERABLES Performing Organization Address City/[facility]/[place] [address] (ABNORMAL) Basic Metabolic Panel (non-fasting) (02/19/2022 8:06 AM EDT)Only the most recent of7 resultswithin the time period is included. athologist Signature Glucose Lvl 139 65 - 199 [facility] mg/dL [facility] Comment: Diabetes: >=200 mg/dL plus symp toms BUN 31 (H) 10 - 20 mg/dL [facility] LABORATORY Creatinine 1.53 (H) 0.80 - 1.50 mg/dL [facility] LABORATORY Sodium 142 135 - 145 mmol/L [facility] LABORATORY Potassium 5.4 (H) 3.5 - 5.0 mmol/L [facility] LABORATORY Comment: Please note: ??Patients with WBC >100,00 0 may have falsely elevated Potassium levels. ??For accurate Potassium quantif ication in these patients send serum separator tube (gold top) for subsequent determinations. ??Contact the Clinical Chemistry Laboratory if there are any qu estions. Chloride 100 98 - 107 mmol/L [facility] LABORATORY CO2 31 22 - 31 mmol/L [facility] LABORATORY Anion Gap 11 5 - 15 mmol/L [facility] LABORATORY Calcium 9.7 8.5 - 10.5 mg/dL [facility] LABORATORY Estimated GFR 47 (L) >=60 mL/min/1.73 m?? [facility] [...] Organization Address City/State/ZIP [place] [address] POCT Glucose (01/30/2022 1:41 PM EDT)Only the most recent of36 resultswithin the time period is included. athologist Signature POC Glucose 148 65 - 199 [facility] mg/dL [facility] Comment: Supplemental ranges: <140 mg/dL before meals <180 mg/dL all other times of the day Specimen Anatomical Collection Method Collection Time Receive d Time (Source) Location / / Volume Laterality Blood 01/30/2022 1:41 PM 2 1:41 EDT PM EDT Vitaliy Nobles MD POINT OF CARE TEST ORDERABLE S Performing Organization Address City/State/ZIP [place] [address] EKG 12 Lead (01/30/2022 [...] 435 ms MUSE SYSTEM (Bezet) Calculated P [place] 41 degrees MUSE SYSTEM Calculated R [place] -27 degrees MUSE SYSTEM Calculated T [place] 104 degrees MUSE SYSTEM INTERPRETATION Normal sinus rhythm MUSE SYSTEM Anterolateral infarct (cited on or before 09-DEC-2021) Abnormal ECG When compared with ECG of 10-DEC-2021 11:17, No significant change was found Confirmed by Gary Perez ([id number]) on 01/30/2022 5:57:5 2 PM Specimen Anatomical [...] SYSTEM - 01/30/2022 2:09 PM ED T ?[facility] ? Cardiac Cathete rization/Intervention Report ? Patient Name: Don Fatima. ? Procedure Date: 01/30/2022 ? A #: [id number] ? Primary Physician: Nobles, Vitaliy P ? Case #: [id number] ? File Name: [id number] ? Catheterization Order Number: [id number] ? [facility] ? Final Report [place], [place] ? Patient Name: ? Don E. Stewa rt ? ID#: ?[id number] ? : ?1945 ? Procedure Date: ? January 30, 2022 ? Case #: ? [id number] ? Room: ? 1 ? Case Physician: [...] to Procedure: ? Aspirin, Angiotensin II Receptor Vauhgn, Beta Vaughn and Statin. ? Indications for Diagnostic Cath: ?The priority of the diagnostic procedure was Urgent. The indication for ?the solar lab technician visit is stable kn own [...] ?2. ?? Saphenous vein graft to brock he OM1/Diagonal 1 ? There was a saphenous ve in graft with sequential anastomoses to the ? first obtuse marginal br anch (OM1) of the LCX and the first diagonal ? branch (Diagonal 1) of t mary MICHAEL. ? This vessel was not inje cted. ? Intravascular Imaging/Physiology: ?Intravascular Ultrasound was pe rformed in the entire vessel RPDA using a ?6 Fr IR 1.5 guiding catheter an d a 3.[address] [facility] [address] ??20 Mhz ?using Manual pullback. ??Imagin [...] ?? A premounted 2.00 x 26 mm [place] (TUCKER) ? was deployed wi th a [...] Wedelivered along 2.0 x 26 mm [place] ? TUCKER stent and p ositioned it [...] dose administered prior to arrival in the solar lab technician. ?Recommended anti-platelet/anti- thrombotic regimen: ?Continue [...] may require ?modification of this regimen. [facility] Interventional Cardiology for ?questions. ?The 1 year [...] using a 2.0 x 26 mm [place] TUCKER stent. ?This completes the revasculariz ation [...] Signature Glucose 152 (H) 65 - 99 [facility] DAVIS Fasting mg/dL [facility] Comment: ?Fasting* Glucose Interpretive C [...] mmol/L [facility] LABORATORY Potassium 3.9 3.5 - 5.0 mmol/L [facility] LABORATORY Comment: Please note: ??Patients with WBC >100,00 0 may have falsely elevated Potassium levels. ??For accurate Potassium quantif ication in these patients send serum separator tube (gold top) for subsequent determinations. ??Contact the Clinical Chemistry Laboratory if there are any qu estions. Chloride 105 98 - 107 mmol/L [facility] LABORATORY CO2 21 (L) 22 - 31 mmol/L [facility] LABORATORY Anion Gap 17 (H) 5 - 15 mmol/L [facility] LABORATORY Calcium 8.9 8.5 - 10.5 mg/dL [facility] LABORATORY Estimated GFR 38 (L) >=60 mL/min/1.73 m?? [facility] LABORATORY Comment: This patient? s [...] Cuevas MD CHEMISTRY ORDERABLES Performing Organization Address City/[facility]/[place] [address] (ABNORMAL) Prothrombin Time (12/12/2021 4:51 AM EDT)Only the most recent of4 resultswithin the time period is included. P athologist Signature PT 14.9 (H) 9.4 - 12.5 [facility] LABORATORY INR 1.3 [facility] LABORATORY Comment: An INR [...] Cuevas MD HEMATOLOGY ORDERABLES Performing Organization Address City/[facility]/[place] [address] Magnesium (12/12/2021 4:51 AM EDT)Only the most recent of5 resultswithin the time period is included. P athologist Signature Magnesium 1.02 0.69 - 1.07 [facility] mmol/L [facility] Specimen Anatomical Collection Method Collection Time Receive d Time (Source) Location / / Volume Laterality Blood 12/12/2021 4:51 AM 2 5:06 EDT AM EDT Resulting Agency Comment Spec In Lab Iker Cuevas MD CHEMISTRY ORDERABLES Performing Organization Address City/[facility]/[place] [address] COVID-19 PCR (12/11/2021 10:13 AM EDT) [facility] Method Time Signature SARS-CoV-2 Not Detected Not Detected BARBARA RNA [facility] LABORATORY Comment: This [...] diagnosis of COVID-19 is performed using the [employer] S-CoV-2 Assay as authorized by the FDA Emergency Use Authorization (EUA). This EUA assay is intended for In-vitro Diagnostic (IVD) use with respiratory sp ecimens such as nasopharyngeal swabs collected from individuals during the ac terrence phase of infection. This assay is performed based on the instructions for use provided by [employer] and additional guidance provided by CDC and FDA. Testing is performed in the Clinical Genomics and Advanced Technolog y Laboratory within the Department of Pathology and Laboratory Medicine at [facility], certified under the Clinical Laboratory Improvement [...] clinical management guidance information are available at [facility] Coronavirus Disease 2019 (COVID-19) webpage under Information fo r Healthcare Professionals (https://www.cdc.gov/coronavirus/2019-nc ov/hcp/index.html) Additional information about this and ot her EUA tests can be found in provider and patient fact sheets at the following FDA website: https://www.fda.gov/medical-devices/thiptjholwf-sjfwygq-0148-kdzqy-97-wxijuomvb- akw-eehcdcgirtzrxk-munihro-devices/xxhcf-meyhqmttsms-hecw SARS-Cov-2 RNA Source [employer] TECHNICIAN [employer] [facility] LABORATORY Specimen (Source) Anatomical Collection Method Collection Time Re ceived Time Location / / Volume Laterality Nasopharyngeal Swab 12/11/2021 10:13 0503/2022 AM EDT 11:16 AM EDT Comment: Symptoms->Surveillance Resulting Agency Comment Spec In Lab Iker Cuevas MD MICROBIOLOGY - GENERAL ORDER [place] Performing Organization Address City/[facility]/[place] [address] Potassium (12/10/2021 7:46 PM EDT) athologist Signature Potassium 4.2 3.5 - 5.0 [facility] mmol/L [facility] Comment: Please note: ??Patients with [...] Cuevas MD CHEMISTRY ORDERABLES Performing Organization Address City/[facility]/ZIP [place] [address] (ABNORMAL) Point of Care Blood Gas Historical (12/10/2021 9:04 AM EDT) Patholo gist Method Time Signature POC pH 7.40 7.35 - [facility] 7.45 [facility] POC PCO2 40 35 - 45 [facility] mmHg [facility] POC PO2 63 (L) 85 - 104 [facility] mmHg [facility] POC Base Excess 0.0 -3.0 - 3.0 [facility] mmol/L [facility] POC HCO3 24.8 20.0 - [facility] 26.0 [facility] POC Sodium 143 135 - 145 [facility] mmol/L [facility] POC Potassium 3.7 3.5 - 5.0 [facility] mmol/L [facility] POC Ionized Ca 1.07 (L) 1.15 - [facility] 1.33 [facility] LAB[facility] POC Hematocrit 30.0 (L) 40.0 - [facility] 51.0 % [facility] POC Calc Hgb 10.2 (L) 13.7 - [facility] 17.5 g/dL [facility] Comment: The calculation of hemoglobin f rom hematocrit assumes a normal MCHC. POC Bgas Loc CC LAB [facility] LABORATORY Specimen Anatomical Collection Method Collection Time Receive d Time (Source) Location / / Volume Laterality Blood 12/10/2021 9:04 AM 2 EDT 12:00 PM EDT Ifeanyi Truong MD CHEMISTRY ORDERABLES Performing Organization Address City/State/ZIP [place] [address] Heparin (unfractionated) Level (12/10/2021 4:25 AM EDT)Only the most recent of5 resultswithin the time period is included. P athologist Signature Heparin UFH 0.69 IU/mL [facility] LABORATORY Comment: Heparin (anti-Xa) levels should be [...] Organization Address City/State/ZIP [place] [address] (ABNORMAL) Troponin (12/09/2021 6:18 AM EDT)Only the most recent of3 results within the time period is included. athologist Signature Troponin-T 1.13 (H) 0.00 - [facility] 0.00 ng/mL [facility] Comment: The 99th percentile for Troponin T is le ss than 0.01 ng/mL, any detectable cTnT concentration using this assay should be considered elevated. According to the third universal definit ion of myocardial infarction the following criteria with a clinical prese ntation consistent with acute myocardial ischemia meets the diagnosis for a myocardial infarction (MD). Detection of a rise and/or fall of [...] additional sample may be indicated. Reference: Third Pitkin Definition of Myocardial Infarction. Journal of the [place] College [employer] 2012;60:1581-98 Specimen Anatomical Collection Method Collection Time Receive d Time (Source) Location / / Volume Laterality Blood 12/09/2021 6:18 AM 2 6:33 EDT AM EDT Resulting Agency Comment Spec In Lab Iker Cuevas MD CHEMISTRY ORDERABLES Performing Organization Address City/[facility]/ZIP [facility] Phon e Number [address] TSH (12/09/2021 6:18 AM EDT) P athologist Signature TSH 1.60 0.27 - 4.20 [facility] mcIU/mL [facility] Comment: Reference Interval (mcIU/mL): Females: ??First Trimester: 0.23-3.88 ??Second Trimester: 0.22-3.90 ??Third Trimester: 0.44-4.66 Specimen Anatomical Collection Method Collection Time Receive d Time (Source) Location / / Volume Laterality Blood 12/09/2021 6:18 AM 2 6:33 EDT AM EDT Resulting Agency Comment Spec In Lab Iker Cuevas MD CHEMISTRY ORDERABLES Performing Organization Address City/[facility] [place] [address] (ABNORMAL) Hemoglobin A1c (12/09/2021 6:18 AM EDT) Analysis Performed At Patho logist Time Signature Hemoglobin A1C 7.4 (H) 4.3 - 5.6 [facility] % [facility] Comment: Reference Range: 4.3 - 5.6% [...] Avg Gluc See note mg/dL [facility]BAR[facility] DAVIS [facility] LABORATORY Comment: Estimated Average Glucose not appropriat [...] with hemoglobinopathies. Additional resources are available on [facility] ADA website. Macario HAMMOND, Ruthann J, Deysi R, et al. ??Tr anslating the A1C assay into estimated average glucose values. ??Diabetes Care 2008:31(8):2547-8393. Specimen Anatomical Collection Method Collection Time Receive d Time (Source) Location / / Volume Laterality Blood Venous Draw / 12/09/2021 6:18 AM 12/10/19 22 Unknown EDT 12:24 PM EDT Resulting Agency Comment Spec In Lab Migdalia BROWN CHEMISTRY ORDERABLES Performing Organization Address City/State/ZIP Code Phon e Number [place] [address] Hepatic Function Panel (12/09/2021 6:18 AM EDT) athologist Signature Total Protein 7.3 6.1 - 8.0 [facility] g/dL [facility] Albumin 4.2 3.2 - 5.2 [facility] g/dL [facility] AST 25 0 - 39 [facility] unit/L [facility] ALT 15 0 - 55 [facility] unit/L [facility] Alk Phos 75 40 - 130 [facility] unit/L [facility] Total 1.1 0.2 - 1.3 [facility] Bilirubin mg/dL [facility] Bili, Direct 0.2 0.0 - 0.[facility] Specimen Anatomical Collection Method Collection Time Receive d Time (Source) Location / / Volume Laterality Blood 12/09/2021 6:18 AM 6:33 EDT AM EDT Resulting Agency Comment Spec In Lab Iker Cuevas MD CHEMISTRY ORDERABLES Performing Organization Address City/State/ZIP Code Phon e Number [place] [phone] Lipid Panel (Reflex Direct LDL) (12/09/2021 6:18 AM EDT) P athologist Signature Chol, Total 105 mg/dL [facility] LABORATORY Comment: Lower Risk: <200 mg/dL Average Risk: 200-239 mg/dL Higher Risk: >fv=191 mg/dL Triglycerides 133 mg/dL [facility] LABORATORY Comment: Average Risk/Lower Risk: <150 mg/dL Borderline High Risk: 150-199 mg/dL High Risk: 200-499 mg/dL Very High Risk: >my=139 mg/dL HDL 42 mg/dL [facility] LAB[facility]ATORY Comment: Males: ?? Higher Risk: <40 mg/dL Females: ?? Higher Risk: <50 mg/dL LDL Cholesterol 36 mg/dL [facility] LAB[facility] Comment: Lowest Risk: <100 mg/dL Lower Risk: 100-129 mg/dL Borderline High Risk: 130-159 mg/dL High Risk: 160-189 mg/dL Very High Risk: >fz=579 mg/dL Chol/HDL Ratio 2.5 ratio [facility] LABORATORY Lipid Interpretation See Note [facility] LABORATORY Comment: Lipid management should be guided by a p atient? s ASCVD risk, goals and preferences. ACC/AHA Guidelines recommend high intens ity statin if clinical ASCVD or LDL greater than or equal to 190 mg/dL. http://Courtanet.com/AVD-DGA-Epiohcbjj Adults aged 40-75 with LDL 70-189 mg/dL should have their 10 year ASCVD risk estimated with the ACC/AHA ASCVD risk es timator http://tools.acc.org/IHPSU-Xlzq-Tmicudal r/ Statin should be discussed if risk [...] City/State/ZIP Code Phon e Number [place] [phone] XR Chest One View [...] have questions please contact the health career technical counselor that requested your imaging first. ? Narrative [...] have questions please contact the health career technical counselor that requested your imaging first. Amber Sanches MD IMG DX ORDERABLES (ABNORMAL) BLOOD GAS 2 ARTERIAL (12/09/2021 5:14 AM EDT) Analysis Performed At [facility] Time Signature pH Art 7.43 7.35 - [facility] 7.45 [facility] pCO2 Art 36 35 - 45 [facility] LABORATORY pO2 Art 67 (L) 85 - 104 [facility] LABORATORY HCO3 Art 23.4 20.0 - [facility] 26.0 [facility] mmol/[facility] LABORATORY BE Art -0.9 -3.0 - 3.0 [facility] mmol/L [facility] Hgb Blood Gas 13.2 (L) 13.7 - [facility] 16.5 g/dL [facility] O2HB Art 91.3 (L) 94.0 - [facility] 97.0 % [facility] COHB Art 0.4 % [facility] LAB[facility]ATORY Comment: Nonsmokers: 0.5-1.5% COHB Smokers: Variable, but usually less than 10% Toxic: 20-30% COHB Lethal: Greater than 60% COHB METHB Art 0.4 <=1.5 % [facility] LABORATORY Na Whole Blood 138 135 - 145 mmol/L [facility] LABORATORY K Whole Blood 4.1 3.5 - 5.0 mmol/L [facility] LAB[facility] Comment: Please note: Patients with WBC >100,000 may have falsely elevated Potassium levels. Contact the Clinical Chemistry L aboratory if there are any questions. ICa Whole Blood 1.09 (L) 1.15 - 1.33 mmol/L [facility] FIO2 Art 35 % [facility] Flow Art 8.0 LPM [facility] PF Ratio Art 191 [facility] Specimen Anatomical Collection Method Collection Time Receive d Time (Source) Location / / Volume Laterality Blood 12/09/2021 5:14 AM 05/17/202 2 5:14 EDT AM EDT Iker Cuevas MD CHEMISTRY ORDERABLES Performing Organization Address City/State/ZIP Code [place] [address] COVID-19 PCR (12/08/2021 5:00 PM EDT) [facility] Method Time Signature SARS-CoV-2 Not Detected Not Detected [place]BARA RNA PCR [facility] Comment: This [...] using the Simplexa COVID-19 Direct Assay by Tapletjio marcum as authorized by the FDA issued [...] of Pathology and Laboratory Medicine at [facility], certified under the Clinical Laboratory Improvement Amendmen [...] clinical management guidance information are available at [facility] CDC Coronavirus Disease 2019 (COVID-19) webpage under Information fo r Healthcare Professionals (https://www.cdc.gov/coronavirus/2019-nc ov/hcp/index.html). Additional information about this and ot her EUA tests can be found in provider and patient fact sheets at the following FDA website: https://www.fda.gov/medical-devices/ojgqstylzrj-pnlhgse-0667-ccuku-39-mwaxyfjbn- eyh-vokurjfgdaiwbu-bmhmnma-devices/eowoz-gfbnpybumye-qyln SARS-CoV-2 Source BAKERY TECHNICIAN Swab [facility] Specimen (Source) Anatomical Collection Method Collection Time Re ceived Time Location / / Volume Laterality Nasopharyngeal Swab 12/08/2021 5:00 12/08 PM EDT 6:03 PM EDT Comment: Symptoms->Surveillance Resulting Agency Comment Spec In Lab Iker Cuevas MD MICROBIOLOGY - GENERAL ORDER [place] Performing Organization Address City/State/ZIP [place] [address] Scan Doc: Echo (12/08/2021) [...] IMG FILM LIBRARY ORDERABLES Performing Organization Address City/[facility]/ZIP Code Phon e Number [place], [place] Scan Doc: ECG (12/07/2021) Narrative This result has an attachment that is no t available. Historical Provider MEDIA MGR SCAN EXT ORDR/RSLT from Last 3 Months Insurance Payer Benefit Plan / Subscriber ID Effective Phone Address T ype Group Dates MEDICARE MEDICARE PART [id number] 2011-Prese [phone] [place] [address] [employer] [place] P [id number] 2018-Prese [phone] [address] [place] [address] [place] [address] Advance Directives Documents on File Type Date Recorded Patient Quality Associate Explanati on Advance Directives and Living 03/28/2013 [...] capacity to make decision: Yes Care Teams Health Outreach Worker Relationship Specialty Start Date End Date Lovely Vicente MD PCP - General 04/16/[address] [place] [address]
--- OUTSIDE RECORDS SUMMARY | 2022-02-27 15:08 | XMS_ITS | Encounter Summary ---
:1945 Author Organization [facility] [place] [address] Care Team Providers Name Role Phone Lovely Vicente MD Primary Care Provider Reason for Referral Diagnostic Test (Routine) - New Request Specialty Diagnoses / Procedures Referred By Contact Refer red To Contact Cardiology Diagnoses Chronic systolic heart failure Liz Carrera PA [facility] Non-Inv Card Lab Procedures Echocardiogram Transthoracic [facility] [place] [address] [place] [address] Fax: Referral ID Status Reason Start Expiration Visits Visits Date Date Requested Authorized [id number] New Request Specialty 02/19/2022 02/19/2023 1 1 Service Requested Encounter Details Date Type Department Care Team Description 02/19/2022 Office Visit Cardiology at [facility] Liz Carrera, Chronic systolic heart [facility] [place] [address] Cardiology Dept [phone] [place], [place] [address] Social History Tobacco Use Types [...] As per DC Summary - Admitted to [facility] on 12/08/21, transferred from [facility], respiratory distress with hypoxia 86% on [...] mg PO daily in place of Lasix. [place] is new for him and he will [...] his PCP. He started [facility] rehab in [facility]. Monitored vitals/trends at home: Weight 191-194 lbs [...] Antiplatelet (DAPT) Recommendations above ? TTE from [facility] 12/08/21 ?? 07/28/2019 Echocardiogram: SUMMARY: 1. [...] regurgitation present. 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 Post-op atrial fibrillation [id number] (CHF, HTN, DM, vascular disease, thromboembolism) Eliquis 7. PAD 08/06/2017: Right 1st, 2nd, 3rd toe amputation 08/11/2017: Left??femoral arterial access, RLE??angiogram, Balloon angioplasty of R PT 10/25/2017: [facility] [...] MD [facility] [address] T[address] [place], [place] [address] (Wo rk) 06/10/2022 Office Visit Dermatology Laura Scherer MD [facility] [address] TE[address] GR[address]MAT [place], [place] [address] (Wo rk) Scheduled Orders Name Type Priority Associated Order Schedule Diagnoses Echocardiogram Echocardiography Routine Chronic systolic Expec vlad: Transthoracic heart failure 05/22/2022 (Approximate), Expires: 11/21/2022 documented as of this encounter Results (ABNORMAL) Basic Metabolic Panel (non-fasting) (02/19/2022 8:06 AM EDT) athologist Signature Glucose Lvl 139 65 - 199 [facility] mg/dL [facility] Comment: Diabetes: >=200 mg/dL plus symp toms BUN 31 (H) 10 - 20 mg/dL [facility] Creatinine 1.53 (H) 0.80 - 1.50 mg/dL [facility] Sodium 142 135 - 145 mmol/L [facility] Potassium 5.4 (H) 3.5 - 5.0 mmol/L [facility] CO2 31 22 - 31 mmol/L [facility] Anion Gap 11 5 - 15 mmol/L [facility] Calcium 9.7 8.5 - 10.5 mg/dL [facility] Estimated GFR 47 (L) >=60 mL/min/1.73 m?? [facility] Comment: This patient's estimated [...] Organization Address City/State/[place] [address] (ABNORMAL) pro-Brain Natriuretic Peptide (02/19/2022 8:06 AM EDT) P athologist Signature ProBNP 984 (H) <=449 pg/mL [facility] Specimen Anatomical Collection Method Collection Time Receive d Time (Source) Location / / Volume Laterality Blood 02/19/2022 8:06 AM 8:09 EDT AM EDT Resulting Agency Comment Spec In Lab Zulma Plunkett MD CHEMISTRY ORDERABLES Performing Organization Address City/State/[place] [address] documented in this encounter Visit Diagnoses Diagnosis Chronic systolic heart failure documented in this encounter Care Teams Fire Equipment Operator Relationship Specialty Start Date End Date Lovely Vicente MD PCP - General 04/16/[address] [place] [address] documented as of this encounter
--- OUTSIDE RECORDS SUMMARY | 2022-02-27 15:08 | XMS_ITS | Encounter Summary ---
:1945 Author Organization [facility] [place] [address] Care Team Providers Name Role Phone Lovely Vicente MD Primary Care Provider Encounter Details Date Type Department Care Team Description 12/25/2021 Laboratory Appointment Lab 3L [facility] systolic [facility] [place] [id number] Social History Tobacco Use Types Packs/Day Years [...] Nobles MD [facility] DR T[address] [place], [place] [address] (Wo rk) 06/10/2022 Office Visit Dermatology Laura Scherer MD [facility] DR TEJA GR-DERMAT [place], [place] [address] (Wo rk) documented [...] (ABNORMAL) Differential, Automated (12/25/2021 7:46 AM EDT) [facility] Method Time Signature Neutrophils % 82.6 % [facility] Neutr Abs (ANC) 9.37 (H) 1.70 - [facility] 6.10 [facility] x10(3)/[facility] L LABORATORY Lymphocytes % 7.1 % [facility] Lymphocytes Abs 0.8 (L) 0.9 - 3.[address] [facility] x10(3)/[facility] LABORATORY Monocytes % 8.8 % [facility] Monocyte Abs 1.0 (H) 0.3 - 0.[address] [facility] x10(3)/[facility] LABORATORY Eosinophils % 0.4 % [facility] Eosinophils Abs 0.0 0.0 - 0.[address] [facility] x10(3)/[facility] LABORATORY Basophils % 0.4 % [facility] Basophils Abs 0.0 0.0 - 0.[address] [facility] x10(3)/[facility] LABORATORY Immature Gran % 0.70 % [...] 0.00 - 0.04 x10(3)/[facility] LABORATORY Specimen Anatomical Collection Method Collection Time Receive d Time (Source) Location / / Volume Laterality Blood 12/25/2021 7:46 AM 2 8:01 EDT AM EDT Resulting Agency Comment Spec In Lab Liz BROWN HEMATOLOGY ORDERABLES Performing Organization Address City/State/[place] [address] (ABNORMAL) Hemogram (12/25/2021 7:46 AM EDT) Analysis Performed At Patho logist Time Signature WBC 11.4 (H) 4.0 - 9.[address] [facility] x10(3)/[facility] LABORATORY RBC 4.23 (L) 4.58 - [facility] 5.54 [facility] x10(6)/[facility]ORY Hemoglobin 12.3 (L) 13.7 - [facility] 16.5 g/dL [facility]ORY Hematocrit 37.7 (L) 40.5 - [facility] 48.5 % [facility] MCV 89.1 82.9 - [facility] 93.1 [facility]ORATORY MCH 29.1 27.5 - [facility] 32.1 pg [facility] LABORATORY MCHC 32.6 32.0 - [facility] 35.7 g/dL [facility] Platelets 215 145 - [address] [facility] x10(3)/[facility] LABORATORY RDWSD 49.8 (H) 36.0 - [facility] 45.0 [facility] LABORATORY RDWCV 15.2 (H) 11.4 - [facility] 13.8 % [facility] LABORATORY MPV 9.2 7.6 - 12.9 [facility] LABORATORY nRBC % Auto 0.0 % [facility] nRBC Abs Auto 0.000 0.000 - [facility] 0.000 [facility] x10(3)/[facility] LABORATORY Specimen Anatomical Collection Method Collection Time Receive d Time (Source) Location / / Volume Laterality Blood 12/25/2021 7:46 AM 2 8:01 EDT AM EDT Resulting Agency Comment Spec In Lab Liz BROWN HEMATOLOGY ORDERABLES Performing Organization Address City/State/[place] [address] (ABNORMAL) Basic Metabolic Panel (non-fasting) (12/25/2021 7:46 AM EDT) P athologist Signature Glucose Lvl 272 (H) 65 - [address] [facility] mg/dL [facility] Comment: Diabetes: >=200 mg/dL plus symp toms BUN 62 (H) 10 - 20 mg/dL [facility] Creatinine 1.81 (H) 0.80 - 1.50 mg/dL [facility] Sodium 134 (L) 135 - 145 mmol/L [facility] Potassium 4.9 3.5 - 5.0 mmol/L [facility] Comment: Please note: ??Patients with WBC >100,00 0 may have falsely elevated Potassium levels. ??For accurate Potassium quantif ication in these patients send serum separator tube (gold top) for subsequent determinations. ??Contact the Clinical Chemistry Laboratory if there are any qu estions. Chloride 95 (L) 98 - 107 mmol/L [facility] CO2 28 22 - 31 mmol/L [facility] Anion Gap 11 5 - 15 mmol/L [facility] Calcium 9.4 8.5 - 10.5 mg/dL [facility] Estimated GFR 36 (L) >=60 mL/min/1.73 m?? [facility] [...] Organization Address City/State/[place] [address] (ABNORMAL) pro-Brain Natriuretic Peptide (12/25/2021 7:46 AM EDT) P athologist Signature ProBNP 1,380 (H) <=124 KATALINA DAVIS pg/mL [facility] Specimen Anatomical Collection Method Collection Time Receive d Time (Source) Location / / Volume Laterality Blood 12/25/2021 7:46 AM 2 8:01 EDT AM EDT Resulting Agency Comment Spec In Lab Zulma Plunkett MD CHEMISTRY ORDERABLES Performing Organization Address City/State/[place] [address] documented in this encounter Visit Diagnoses Diagnosis Chronic systolic heart failure documented in this encounter Care Teams Saw Superintendent Relationship Specialty Start Date End Date Lovely Vicente MD PCP - General 04/16/[address] [place] [address] documented as of this encounter
--- OUTSIDE RECORDS SUMMARY | 2022-02-27 15:08 | XMS_ITS | Encounter Summary ---
:1945 Author Organization [facility] [place] [address] Care Team Providers Name Role Phone Lovely Vicente MD Primary Care Provider Reason for Visit Reason Onset Date Comments Medication Refill 12/12/2021 Torsemide Encounter Details Date Type Department Care Team Description 12/12/2021 Refill Cardiology at [facility] Janneth Padilla, Medication Refill [facility] STEPHANIE (Torsemide) [place] [address] CARDIOLOGY DEPT. [place], [place] [address] (Wo rk) Social History Tobacco [...] Nobles MD [facility] [address] T[address] [place], [place] [address] (Wo rk) 06/10/2022 Office Visit Dermatology Laura Scherer MD [facility] [address] [place], [place] [address] (Wo rk) documented as of this encounter Visit Diagnoses Diagnosis Chronic systolic heart failure documented in this encounter Care Teams Shelver Relationship Specialty Start Date End Date Lovely Vicente MD PCP - General 04/16/[address] [place] [address] documented as of this encounter
--- OUTSIDE RECORDS SUMMARY | 2022-02-27 15:08 | XMS_ITS | Encounter Summary ---
:1945 Author Organization [facility] [place] [address] Care Team Providers Name Role Phone Lovely Vicente MD Primary Care Provider Encounter Details Date Type Department Care Team Description 12/24/2021 Telephone Public Health at [facility] [place] [address] Social History Tobacco Use Types Packs/Day [...] MD [facility] DR TADEO [place], [place] [address] (Wo rk) 06/10/2022 Office Visit Dermatology Laura Scherer MD [facility] [address] [place], [place] [address] (Wo rk) documented as of this encounter Visit Diagnoses Not on filedocumented in this encounter Care Teams Team Assembler Relationship Specialty Start Date End Date Lovely Vicente MD PCP - General 04/16/[address] [place] [address] documented as of this encounter
--- OUTSIDE RECORDS SUMMARY | 2022-02-27 15:08 | XMS_ITS | Encounter Summary ---
:1945 [place] [address] Care Team Providers Name Role Phone Lovely Vicente MD Primary Care Provider Encounter Details Date Type Department Care Team Description 12/24/2021 Orders Only Business Services Associate Zulma Finch, GERARDVD (art eriosclerotic [facility] cardiovascular disease) [facility] [place] [address] [place], [place] [phone] (Work) [phone] Social History Tobacco Use Types Packs/Day Years [...] Vitaliy Nobles MD [facility] [address] [place], [place] [address] (Wo rk) 06/10/2022 Office Visit Dermatology Laura Scherer MD [facility] DR TEJA [address] [place], [place] [address] (Wo rk) documented as of this encounter Visit Diagnoses Diagnosis ASCVD (arteriosclerotic cardiovascular d isease) Unspecified cardiovascular disease documented in this encounter Care Teams Licensed Insurance Sales Agent Relationship Specialty Start Date End Date Lovely Vicente MD PCP - General 04/16/15 [address] [place] [address] documented as of this encounter
--- OUTSIDE RECORDS SUMMARY | 2022-02-27 15:08 | XMS_ITS | Encounter Summary ---
:1945 [place] [address] Care Team Providers Name Role Phone Lovely Vicente MD Primary Care Provider Encounter Details Date Type Department Care Team Description 01/28/2022 Orders Only Surgical Sales Representative Zulma Finch, GERARDVD (art eriosclerotic [facility] cardiovascular disease) [facility] [place] [address] [place], [place] [phone] (Work) [phone] Social History Tobacco Use Types Packs/Day Years [...] Vitaliy Nobles MD [facility] [address] [place], [place] [address] (Wo rk) 06/10/2022 Office Visit Dermatology Laura Scherer MD [facility] DR TE[address] [place], [place] [address] (Wo rk) documented as of this encounter Results (ABNORMAL) Basic Metabolic Panel (non-fasting) (01/30/2022 7:19 AM EDT) athologist Signature Glucose Lvl 237 (H) 65 - 199 [facility] mg/dL [facility] Comment: Diabetes: >=200 mg/dL plus symp toms BUN 34 (H) 10 - 20 mg/dL [facility] Creatinine 1.45 0.80 - 1.50 mg/dL [facility] Sodium 141 135 - 145 mmol/L [facility] Potassium 4.7 3.5 - 5.0 mmol/L [facility] [...] - 15 mmol/L [facility] Calcium 9.5 8.5 - 10.5 mg/dL [facility] Estimated GFR 50 (L) >=60 [...] Organization Address City/State/ZIP Code Phon e Number [place] [id number] documented in this encounter Visit Diagnoses Diagnosis ASCVD (arteriosclerotic cardiovascular d isease) Unspecified cardiovascular disease documented in this encounter Care Teams Pony Trimmer Relationship Specialty Start Date End Date Lovely Vicente MD PCP - General 04/16/[address] [place] [address] documented as of this encounter
--- OUTSIDE RECORDS SUMMARY | 2022-02-27 15:08 | XMS_ITS | Encounter Summary ---
:1945 Author Organization [facility] [address] Care Team Providers Name Role Phone Lovely Vicente MD Primary Care Provider Encounter Details Date Type Department Care Team Description 02/23/[address] [facility] Liz Poole PA [facility] [place] [address] Cardiology Dept [phone] [place], [place] [address] (Wo rk) Social History Tobacco [...] Oneill RPH Transfer of Services Don Fatima [address] [place] [address] [place] [address] Telephone Information: Work Phone Not on file. The [facility] has received a prescription for Entresto for patient Mr. Don Fatima 76 y.o. (1945). The patient requests the prescription to be filled with [facility]. We spoke to patient to notify of this change and to provide number to reach the new filling pharmacy. A copyof patient's medication profile was offered to the accepting pharmacy. Additional instructions provided to patient about transfer: no The patient has been advised to call the - Specialty Pharmacy at [phone] with any questionsor concerns on this referral. Thank you, Oxana Oneill RPH 02/23/22 4:26 PM Patient understands no changes to current drug regimen were made at this time. documented in this encounter Plan of Treatment Upcoming Encounters Date Type Specialty Care Team Description 03/26/2022 Office Visit Cardiology Vitaliy Nobles MD [facility] [address] T[address] [place], [place] [address] (Wo rk) 06/10/2022 Office Visit Dermatology Laura Scherer MD [facility] DR [address] [place], [place] [address] (Wo rk) documented as of this encounter Visit Diagnoses Not on filedocumented in this encounter Care Teams Magician/Illusionist Relationship Specialty Start Date End Date Lovely Vicente MD PCP - General 04/16/[address] [place] [address] documented as of this encounter
--- OUTSIDE RECORDS SUMMARY | 2022-02-27 15:08 | XMS_ITS | Encounter Summary ---
:1945 Author Organization [facility] Address [facility] [place] [address] Care Team Providers Name Role Phone Lovely Vicente MD Primary Care Provider Reason for Visit Auth/Cert Specialty Diagnoses / Procedures Referred By Contact Refer red To Contact Diagnoses ASCVD (arteriosclerotic cardiovascular disease) [I25.10] Vitaliy Nobles MD [facility] Procedures PRO PERC TRLUML CORONARY STENT W/ANGIO ONE ART/BRANCH CARDIAC CATHETERIZATION STENT PLACEMENT-SINGLE MAJOR CORONARY ARTERY OR BRANCH [facility] [place] [address] Referral ID Status Reason Start Date Expiration Date Visits Requ ested Visits Authorized [id number] 1 1 Encounter Details Date Type Department Care Team Description 01/30/2022 Surgery Window Framer Asa Coulter MD CARDIAC CATHETERIZATION [facility] [place] [address] [place] [address] [phone] (Wo rk) Social History Tobacco Use Types [...] and Clopidogrel. Please follow up with your talent acquisition project manager in the next 4-6 weeks. [...] of this encounter Progress Notes Carlos Alberto Murray, RN - 01/30/2022 4:54 PM EDT [facility] Short Stay Unit Discharge Note [...] presenting for staged PCI to [facility]. The pt states he has been ok. [...] presenting for staged PCI to [facility]. The indications, expected benefits, and potential risks [...] had referred him to cardiac rehab at [facility] last month per HF team. He was waiting until this intervention before starting the program. Reviewed managing angina /use of sl nitroglycerin. Given parameters for home exercise. 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 We discussed short walks several times per day. Will send [facility] his discharge summary from this admission. The patient should be contacted by the Program within 1- 2 weeks from discharge. Brief Op Note - Vitaliy Nobles MD - 01/30/2022 10:19 AM EDT Images from the original note were not included. [facility] [place] [id number] CORONARY ANGIOGRAM AND PERCUTANEOUS CORONARY INTERVENTION REPORT Patient: Don Fatima : 1945 MR number: [id number] Date of Service: 01/30/2022 Cloth Bleaching Supervisor: Vitaliy Nobles MD Fellow: KEYON Elizabeth [...] a long 2.0 x 26 mm [facility] [place] TUCKER stent and positioned it at the [...] using a 2.0 x 26 mm [facility] [place] TUCKER stent. This completes the revascularization ofall [...] Cardiology Vitaliy Nobles MD [facility] [address] [place], [place] [address] ([facility]) 06/10/2022 Office Visit Dermatology Laura Scherer MD [facility] DR TEJA GR[address]DERMAT [place], [place] [address] ([facility]) Scheduled Orders Name Type Priority Associated Diagnoses [...] LABORATORY Neutr Abs (ANC) 3.96 1.70 - [facility] 6.10 [facility] x10(3)/[facility] LABORATORY Lymphocytes % 16.3 % [facility] LABORATORY Lymphocytes Abs 0.9 0.9 - 3.2 [facility] x10(3)/[facility] LABORATORY Monocytes % 10.0 % [facility] LABORATORY Monocyte Abs 0.6 0.3 - 0.9 [facility] x10(3)/[facility] LABORATORY Eosinophils % 0.5 % [facility] LABORATORY Eosinophils Abs 0.0 0.0 - 0.4 [facility](3[facility] LABORATORY Basophils % 0.5 % [facility] LABORATORY Basophils Abs 0.0 0.0 - 0.1 [facility] x10(3)/[facility] LABORATORY Immature Gran % 0.90 % [...] Address City/State/[place] [address] (ABNORMAL) Hemogram (01/30/2022 2:12 PM EDT) Analysis Performed At Patho logist Time Signature WBC 5.5 4.0 - 9.5 [facility] x10(3)/[facility] LABORATORY RBC 4.30 (L) 4.58 - [facility] 5.54 [facility] x10(6)/[facility] LABORATORY Hemoglobin 12.7 (L) 13.7 - [facility] 16.5 g/dL [facility] LABORATORY Hematocrit 39.4 (L) 40.5 - [facility] 48.5 % [facility] LABORATORY MCV 91.6 82.9 - [facility] 93.1 fL [facility] LABORATORY MCH 29.5 27.5 - [facility] 32.1 pg [facility] LABORATORY MCHC 32.2 32.0 - [facility] 35.7 g/dL [facility] LABORATORY Platelets 172 145 - 357 [facility] x10(3)/[facility] LABORATORY RDWSD 54.5 (H) 36.0 - [facility] 45.0 [facility] LABORATORY RDWCV 16.4 (H) 11.4 - [facility] 13.8 % [facility] LABORATORY MPV 9.2 7.6 - 12.9 [facility] LABORATORY nRBC % Auto 0.0 % [facility] LABORATORY nRBC Abs Auto 0.000 0.000 - [facility] 0.000 [facility] x10(3)/[facility] LABORATORY Specimen Anatomical Collection Method Collection Time Receive d Time (Source) Location / / Volume Laterality Blood 01/30/2022 2:12 PM 2 2:37 EDT PM EDT Resulting Agency Comment Spec In Lab Eddi Elizabeth Jr., MD HEMATOLOGY ORDERABLES Performing Organization Address City/State/[place] [address] (ABNORMAL) Basic Metabolic Panel (non-fasting) (01/30/2022 2:12 PM EDT) P athologist Signature Glucose Lvl 163 65 - 199 [facility] mg/dL [facility] LABORATORY Comment: Diabetes: >=200 mg/dL plus symp toms BUN 30 (H) 10 - 20 mg/dL [facility] LABORATORY Creatinine 1.47 0.80 - 1.50 mg/dL [facility] LABORATORY [...] Nobles MD CHEMISTRY ORDERABLES Performing Organization Address City/[facility]/ZIP Code Phon e Number [address] POCT Glucose (01/30/2022 1:41 PM EDT) athologist Signature POC Glucose 148 65 - 199 [facility] mg/dL [facility] LABORATORY Comment: Supplemental [...] [facility] [place]/ZIP Code Phon e Number [address] POCT Glucose (01/30/2022 10:48 AM EDT) athologist Signature POC Glucose 193 65 - 199 [facility] mg/dL [facility] LABORATORY Comment: Supplemental ranges: <140 mg/dL before meals <180 mg/dL all other times of the day Specimen Anatomical Collection Method Collection Time Receive d Time (Source) Location / / Volume Laterality Blood 01/30/2022 10:48 01/30/2022 AM EDT 10:48 AM EDT Vitaliy Sandra Nobles MD POINT OF CARE TEST ORDERABLE S Performing Organization Address City/State/[place] [address] EKG 12 Lead (01/30/2022 10:33 AM EDT) Component Value Ref Range Test Analysis Performed Pathologis t Method Time At Signature Ventricular rate 64 BPM MUSE SYSTEM Atrial Rate 64 BPM MUSE SYSTEM P-R Interval 162 ms MUSE SYSTEM QRS Duration 94 ms MUSE SYSTEM Q-T Interval 422 ms MUSE SYSTEM QTC Calculated 435 ms MUSE SYSTEM (Bezet) Calculated P [place] 41 degrees MUSE SYSTEM Calculated R [place] -27 degrees MUSE SYSTEM Calculated T [place] 104 degrees MUSE SYSTEM INTERPRETATION Normal sinus rhythm MUSE SYSTEM Anterolateral infarct (cited on or before 09-DEC-2021) Abnormal ECG When compared with ECG of 10-DEC-2021 11:17, No significant change was found Confirmed by Gary Perez ([id number]) on 01/30/2022 5:57:5 2 PM Specimen Anatomical Collection Method Collection Time Receive d Time (Source) Location / / Volume Laterality 01/30/2022 10:33 01/30/2022 5:57 AM EDT PM EDT Vitaliy Sandra Nobles MD ECG ORDERABLES Performing Organization Address City/[facility]/ZIP Code Phon e Number MUSE SYSTEM CARDIAC CATHETERIZATION (01/30/2022 10:16 AM EDT) Specimen (Source) Anatomical Location Collection Method / Collectio n Time Received Time / Laterality Volume Narrative CARDIOMAC SYSTEM - 01/30/2022 2:09 PM ED T ?[facility] ? Cardiac Cathete rization/Intervention Report ? Patient Name: Don Fatima. ? Procedure Date: 01/30/2022 ? A #: [id number] ? Primary Physician: Nobles, Vitaliy P ? Case #: [id number] ? File Name: [id number] ? Catheterization Order Number: [id number] ? [facility] ? Final Report [place], [place] ? Patient Name: ? Don E. Stewa rt ? ID#: ?[id number] ? : ?1945 ? Procedure Date: ? January 30, 2022 ? Case #: ? [id number] ? Room: ? 1 ? Case Physician: [...] procedure was Urgent. The indication for ?the dental laboratory technician visit is stable kn own CAD. [...] guiding catheter an d a 3.[address] [facility] [address] ??20 Mhz ?using Manual pullback. ??Imagin [...] ?? A premounted 2.00 x 26 mm [place] (TUCKER) ? was deployed wi th a [...] Wedelivered along 2.0 x 26 mm [facility] [place] ? TUCKER stent and p ositioned it [...] dose administered prior to arrival in the dental laboratory technician. ?Recommended anti-platelet/anti- thrombotic regimen: ?Continue aspirin [...] may require ?modification of this regimen. [facility] Interventional Cardiology for ?questions. ?The 1 year bleeding risk as nusrat culated by the PRECISE DAPT score is High ?risk. ?High Bleeding Risk - Anticoagul ation and DAPT: ?- ??Assess ischemic and bleedin g risks using validated risk predictors ?(e.g. CHADS2-VASC, HAS-BLED, IN ECISE DAPT, DAPT Score) ?- ??Keep anticoagulant [...] Comments: ?SUMMARY AND THERAPEUTIC RECOMME NDATIONS: ?Don E Stewartpresented with a NSTEMI, pulmonary edema,areduction of [...] using a 2.0 x 26 mm [facility] [place] TUCKER stent. ?This completes the revasculariz ation [...] [facility]/ZIP Code Phon e Number CARDIOMAC SYSTEM (ABNORMAL) POCT Glucose (01/30/2022 9:04 AM EDT) P athologist Signature POC Glucose 212 (H) 65 - 199 [facility] mg/dL [facility] LABORATORY Comment: Supplemental ranges: <140 mg/dL before meals <180 mg/dL all other times of the day Specimen Anatomical Collection Method Collection Time Receive d Time (Source) Location / / Volume Laterality Blood 01/30/2022 9:04 AM 2 9:04 EDT AM EDT Vitaliy Nobles MD POINT OF CARE TEST ORDERABLE S Performing Organization Address [facility]/[place] [address] (ABNORMAL) POCT Glucose (01/30/2022 8:10 AM EDT) P athologist Signature POC Glucose 224 (H) 65 - 199 [facility] mg/dL [facility] LABORATORY Comment: Supplemental [...] [facility]/[place] [address] documented in this encounter Visit Diagnoses Diagnosis ASCVD (arteriosclerotic cardiovascular d isease) Unspecified cardiovascular disease 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 ASHD (arteriosclerotic heart disease) Coronary atherosclerosis of unspecified type of vessel, [place] or graft ASCVD (arteriosclerotic cardiovascular d isease) Unspecified cardiovascular disease documented in this encounter Admitting Diagnoses Diagnosis CAD (coronary artery disease) Coronary atherosclerosis of unspecified type of vessel, [place] or graft documented in this encounter Administered [...] Given 02/2022 10:11 AM EDT 100 mcg (DYE AND CHEMICAL COORDINATOR) ONCE PRN, Starting on Wed01/30/22 at 0927, [...] Procedure), Routine niCARdipine (Cardene) (100 mcg/mL) dilution (DYE AND CHEMICAL COORDINATOR) (CANCELED ) 0927 (Given - Provider: Vitaliy [...] (Intra-Procedure) documented in this encounter Care Teams Reinforcing Steel Machine Operator Relationship Specialty Start Date End Date Lovely Vicente MD PCP - General 04/16/[address] [place] [address] documented as of this encounter
--- OUTSIDE RECORDS SUMMARY | 2022-02-27 15:08 | XMS_ITS | Encounter Summary ---
:1945 [place] [address] Care Team Providers Name Role Phone Lovely Vicente MD Primary Care Provider Encounter Details Date Type Department Care Team Description 02/24/2022 Orders Only Cardiology at [facility] Liz Poole, Chronic systolic heart [facility] [place] [address] Cardiology Dept [place], [place] [address] Social History Tobacco Use Types [...] [facility] ER [address] TADEO [place], [place] [address] (Wo rk) 06/10/2022 Office Visit Dermatology Laura Scherer MD [facility] ER DR TEJA GR[address] [place], [place] [address] (Wo rk) Scheduled Orders Name Type Priority Associated Diagnoses Order S chedule Basic Metabolic Panel Lab Routine Chronic systolic he art Expected: 03/03/2022 (non-fasting) failure (Approximate), Expires: 2022 documented as of this encounter Visit Diagnoses Diagnosis Chronic systolic heart failure documented in this encounter Care Teams Real Estate Assessor Relationship Specialty Start Date End Date Lovely Vicente MD PCP - General 04/16/[address] [place] [address] documented as of this encounter
--- OUTSIDE RECORDS SUMMARY | 2022-02-27 15:08 | XMS_ITS | Encounter Summary ---
:1945 Author Organization [facility] [place] [address] Care Team Providers Name Role Phone Lovely Vicente MD Primary Care Provider Encounter Details Date Type Department Care Team Description 02/19/2022 Laboratory Appointment Lab 3L [facility] systolic [facility] [place] [id number] Social History Tobacco Use Types Packs/Day Years [...] Nobles MD [facility] CARDIOLOGY [place], [place] [address] (Wo rk) 06/10/2022 Office Visit Dermatology Laura Scherer MD [facility] DR TEJA GR-DERMAT OLOGY [place], [place] [address] (Wo rk) documented as of [...] (ABNORMAL) Differential, Automated (02/19/2022 8:06 AM EDT) [facility] Method Time Signature Neutrophils % 76.0 % [facility] LABORATORY Neutr Abs (ANC) 5.49 1.70 - [facility] 6.10 [facility] x10(3)/[facility] LABORATORY Lymphocytes % 10.8 % [facility] LABORATORY Lymphocytes Abs 0.8 (L) 0.9 - 3.2 [facility] x10(3)/[facility] LABORATORY Monocytes % 10.2 % [facility] LABORATORY Monocyte Abs 0.7 0.3 - 0.9 [facility] x10(3)/[facility] LABORATORY Eosinophils % 1.2 % [facility] LABORATORY Eosinophils Abs 0.1 0.0 - 0.4 [facility] x10(3)/[facility] LABORATORY Basophils % 0.8 % [facility] LABORATORY Basophils Abs 0.1 0.0 - 0.1 [facility] x10(3)/[facility] LABORATORY Immature Gran % 1.00 % [facility] [...] Gran Abs 0.07 (H) 0.00 - 0.04 x10(3)/[facility] LABORATORY Specimen Anatomical Collection Method Collection Time Receive d Time (Source) Location / / Volume Laterality Blood 02/19/2022 8:06 AM 2 8:09 EDT AM EDT Resulting Agency Comment Spec In Lab Liz BROWN HEMATOLOGY ORDERABLES Performing Organization Address City/State/[place] [address] (ABNORMAL) Hemogram (02/19/2022 8:06 AM EDT) Analysis Performed At Patho logist Time Signature WBC 7.2 4.0 - 9.5 [facility] x[facility](3[facility] LABORATORY RBC 4.41 (L) 4.58 - [place] [facility] 5.54 [facility] x10(6)/[facility] LABORATORY Hemoglobin 13.2 (L) 13.7 - [place] [facility] 16.5 g/dL [facility] LABORATORY Hematocrit 40.9 40.5 - [facility] RYAN 48.5 % [facility] LABORATORY MCV 92.7 82.9 - [facility] RYAN 93.1 [facility] LABORATORY MCH 29.9 27.5 - [place] [facility] 32.1 pg [facility] LABORATORY MCHC 32.3 32.0 - [place] [facility] 35.7 g/dL [facility] LABORATORY Platelets 191 145 - 357 [facility] x10(3)/[facility] LABORATORY RDWSD 53.6 (H) 36.0 - [facility] RYAN 45.0 [facility] LABORATORY RDWCV 15.6 (H) 11.4 - [place] [facility] 13.8 % [facility] LABORATORY MPV 8.7 7.6 - 12.9 [facility] LABORATORY nRBC % Auto 0.0 % [facility] LABORATORY nRBC Abs Auto 0.000 0.000 - [place] 0.000 [facility] x10(3)/[facility] LABORATORY Specimen Anatomical Collection Method Collection Time Receive d Time (Source) Location / / Volume Laterality Blood 02/19/2022 8:06 AM 2 8:09 EDT AM EDT Resulting Agency Comment Spec In Lab Liz BROWN HEMATOLOGY ORDERABLES Performing Organization Address City/State/[place] [address] [facility] LABORATORY Drive (ABNORMAL) pro-Brain Natriuretic Peptide (02/19/2022 8:06 AM EDT) athologist Signature ProBNP 984 (H) <=449 pg/mL [facility] LABORATORY Specimen Anatomical Collection Method Collection Time Receive d Time (Source) Location / / Volume Laterality Blood 02/19/2022 8:06 AM 8:09 EDT AM EDT Resulting Agency Comment Spec In Lab Zulma Plunkett MD CHEMISTRY ORDERABLES Performing Organization Address City/State/ZIP Code Phon e Number [address] (ABNORMAL) Basic Metabolic Panel (non-fasting) (02/19/2022 8:06 AM EDT) athologist Signature Glucose Lvl 139 65 - 199 [facility] mg/dL [facility] LABORATORY Comment: Diabetes: >=200 mg/dL plus symp toms BUN 31 (H) 10 - 20 mg/dL [facility] LABORATORY Creatinine 1.53 (H) 0.80 - 1.50 mg/dL [facility] LABORATORY Sodium 142 135 - 145 mmol/L [facility] LABORATORY Potassium 5.4 (H) 3.5 - 5.0 mmol/L [facility] LABORATORY Comment: Please note: ??Patients with WBC >100,00 0 may have falsely elevated Potassium levels. ??For accurate Potassium quantif ication in these patients send serum separator tube (gold top) for subsequent determinations. ??Contact the Clinical Chemistry Laboratory if there are any qu estions. Chloride 100 98 - 107 mmol/L [facility] LABORATORY CO2 31 22 - 31 mmol/L [facility] LABORATORY Anion Gap 11 5 - 15 mmol/L [facility] LABORATORY Calcium 9.7 8.5 - 10.5 mg/dL [facility] [...] Organization Address City/State/[place] [address] documented in this encounter Visit Diagnoses Diagnosis Chronic systolic heart failure documented in this encounter Care Teams Physical Therapy Professor Relationship Specialty Start Date End Date Lovely Vicente MD PCP - General 04/16/[address] [place] [address] documented as of this encounter
--- OUTSIDE RECORDS SUMMARY | 2022-02-27 15:08 | XMS_ITS | Encounter Summary ---
:1945 Author Organization [facility] [place] [address] Care Team Providers Name Role Phone Lovely Vicente MD Primary Care Provider Reason for Visit Reason Onset Date Comments Advice Only 01/28/2022 Encounter Details Date Type Department Care Team Description 01/28/2022 Telephone Cardiology at [facility] Chitra Angela, sample [place] [address] Social History Tobacco Use Types Packs/Day [...] assists patient with medications. Number for chemical laboratory chief scheduling given and she will call them to verify this information Meds reviewed. As per our form from chemical laboratory chief Eliquis hold for 48 hours prior. Pt [...] MD [facility] [address] TADE[address] [place], [place] [address] (Wo rk) 06/10/2022 Office Visit Dermatology Laura Scherer MD [facility] DR TEJA [address] [place]LOG[place], [place] [address] (Wo rk) documented as of this encounter Visit Diagnoses Not on filedocumented in this encounter Care Teams Fashion Buying Internship Relationship Specialty Start Date End Date Lovely Vicente MD PCP - General 04/16/[address] [place] [address] documented as of this encounter
--- OUTSIDE RECORDS SUMMARY | 2022-02-27 15:08 | XMS_ITS | Encounter Summary ---
:1945 Author Organization [facility] [place] [address] Care Team Providers Name Role Phone Lovely Vicente MD Primary Care Provider Encounter Details Date Type Department Care Team Description 02/24/2022 Notes Only [place] [address] Social History Tobacco Use Types Packs/Day [...] return to the Medication Assistance Program. The [facility] office will follow up with the patient in 5 business days to see if the patient has received the application and if they have any questions. documented in this encounter Plan of Treatment Upcoming Encounters Date Type Specialty Care Team Description 03/26/2022 Office Visit Cardiology Vitaliy Nobles MD [facility] [address] TADE[address] [place], [place] [address] (Wo rk) 06/10/2022 Office Visit Dermatology Laura Scherer MD [facility] ER DR TEJA GR[address]DERMAT [place], [place] [address] (Wo rk) documented as of this encounter Visit Diagnoses Not on filedocumented in this encounter Care Teams Technical Specialist Cytology Relationship Specialty Start Date End Date Lovely Vicente MD PCP - General 04/16/[address] [place] [address] documented as of this encounter
--- OUTSIDE RECORDS SUMMARY | 2022-02-27 15:09 | XMS_ITS | Encounter Summary ---
:1945 Author Organization [facility] [place] [address] Care Team Providers Name Role Phone Lovely Vicente MD Primary Care Provider Reason for Referral Consultation (Routine) - Closed Specialty Diagnoses / Referred By Contact Referred To Contact Procedures Cardiac Rehabilitation Diagnoses Acute HFrEF (heart failure with reduced ejection fraction) Janneth Padilla, Cardiac Rehab, [address] [place], [place] CARDIOLOGY DEPT. [address] [place] [address] Referral ID Status Reason Start Date Expiration Date Visits V isits Requested Authorized [id number] Closed Consult, 12/12/2021 12/12/2022 36 36 Test & Treat Reason for Visit Auth/Cert Specialty Diagnoses / Procedures Referred By Contact Refer red To Contact Diagnoses NSTEMI Procedures emerg ipi Referral ID Status Reason Start Date Expiration Date Visits Requ ested Visits Authorized [id number] 1 1 Encounter Details Date Type Department Care Team Description 12/08/2021 - Hospital Encounter Intermediate Cardiac Iker Cuevas MD [facility] [place] [address] Non-ST elevation myocardial infarction ( NSTEMI); 12/12/2021 Care Unit Ifeanyi Rene MD [facility] [address] ST elevation myocardial infarction (STEM I), unspecified artery; [facility] Acute HFr EF (heart failure with reduced ejection fraction) [place] [address] Social History Tobacco Use Types Packs/Day Years [...] Don Fatima Patient Age: 76 y.o. Language: Uzbek Race: White Ethnicity: Not nor Admit date: [...] Peter PA-C Kelly LaFlamme PA-C Cardiovascular Medicine [phone] Discharge Diagnoses (Hospital Problems) and Secondary Diagnoses [...] 3.75 guiding catheter and a 3.5 Fr [facility] [place] 20 Mhz using Manual pullback. Imaging was successful. Image quality was good. The ostial LCX showed moderate diffuse atherosclerotic plaque with scattered three quadrant calcification. Measurements were performed after pre-dilation. Post Intervention: The stent was well expanded and apposed. Intravascular Ultrasound was performed in the distal LM using a 7 Fr EBU 3.75 guiding catheter and a 3.5 Fr [facility] [place] 20 Mhz using Manual pullback. Imaging was [...] this regimen. Consult [facility] Interventional Cardiology for questions. The 1 year [...] vascular congestion and cardiomegaly. ?? TTE from [facility] 12/08/21 ? Prior Cardiac Studies: [...] prior thyroidectomy in 2012 who presented to [facility] with 1 week progressing breathlessness [...] 03/2021 with Liz Poole PA-C. ?? At [facility], respiratory distress with hypoxia [...] mg PO daily in place of lasix. [place] is new for him and he will have a BMP checked on 12/[address] Cuevas spoke with the patient's and told her that him drinking too much water and diet drinks did not cause his OH. This is what his thought was the [...] to be ~$24/mo; affordable per patient. Post [facility] he was started on Eliquis. [...] appointments: During 8am-5pm Wednesday through Wednesday call [phone] to speak with a nurse in the cardiology clinic All other times call [phone] and ask to speak to the metal engineering process worker exceptional children's teacher. Return to work: One week Driving: No driving for 48 hours after catheterization. Follow up Appointments: PCP Lovely Vicente MD [phone] to see patient at the end of December for annual check up. Patient to see Dr. Lorenzana at 1120 am at December 19 for a post hospital check up. Fire Alarm Inspector Dr. De Oliveira to see you in [facility]. Left a message for office to set a date and time. Please call [phone] Nobles to see the patient for a same day cath in 2-3 weeks from now. Office to call with a date and time. For questions please call [phone] Home oxygen therapy: N/A Arrangements for VNA/home care: none Future Appointments and Orders Future Orders Complete By Expires Basic Metabolic Panel (non-fasting) [LAB15 Custom] 12/19/2021 (Approximate) 12/12/2022 Process Instructions: INCLUDES: Calcium, BUN, Creat, GFR, Glucose, Lytes Scheduling Instructions: Comments: Questions: Referral to Cardiac Rehab [[id number] Custom] As directed Process Instructions: If no [...] appointments: During 8am-5pm Wednesday through Wednesday call [phone] to speak with a nurse in the cardiology clinic All other times call [phone] and ask to speak to the metal engineering process worker exceptional children's teacher. Return to work: One week Driving: No driving for 48 hours after catheterization. Follow up Appointments: PCP Lovely Vicente MD [phone] to see patient at the end of December for annual check up. Patient to see Dr. Lorenzana at 1120 am at December 19 for a post hospital check up. Fire Alarm Inspector Dr. De Oliveira to see you in [facility]. Left a message for office to set a date and time. Please call [phone] Nobles to see the patient for a same day cath in 2-3 weeks from now. Office to call with a date and time. For questions please call [phone] Home oxygen therapy: N/A Arrangements for VNA/home [...] 81 mg every 24 hours. 0 01/30/2022 losartan (COZAAR) 100 Take 50 mg by mouth 0 04/1402/26/2022 mg Tablet daily. documented as of this encounter Progress Notes Janneth Padilla PA - 12/12/2021 7:36 AM EDT Images from the original note were not included. Inpatient Cardiology Progress Note Patient Name: Don Fatima Service: LETTER CARRIER / PA Responsible Attending: Ifeanyi Truogn MD Reason for continued hospitalization: ?? NSTEMI- [...] was given Lasix 80mg IV x1 in cathode ray tube assembler. Tolerated procedure well. Home today at 11 [...] Recent Labs 12/12/21 0451 12/11/21 0428 12/10/21 0425 WBC 7.9 8.8 9.4 HGB 12.1* 11.9* 11.1* HCT 36.7* 36.9* 34.0* PLATELET 231 211 183 Recent Labs 12/12/21 0451 INR 1.3 Recent Labs 12/12/21 0451 12/11/21 0428 12/10/21 1946 12/10/21 1812 NA 143 142 -- 138 K 3.9 4.0 4.2 Not Perf CL 105 104 -- 100 CO2 21* 23 -- 22 BUN 52* 49* -- 50* CREATININE 1.72* 1.43 -- 1.39 Recent Labs 12/09/21 0618 AST 25 ALT 15 ALKPHOS 75 BILITOT 1.1 BILIDIR 0.2 Recent Labs 12/12/21 0451 12/11/21 0428 12/10/21 1812 12/10/21 0425 CALCIUM 8.9 8.6 8.3* 8.0* MAGNESIUM 1.02 1.04 -- 0.95 Recent Labs 12/09/21 0618 12/08/21220212/08/21 180 TROPONINT 1.13* 0.92* 0.89* Pertinent Radiographic/Diagnostic Results: R/[facility] 12/10/21 Hemodynamics: Right Heart Pressures [...] pulmonary vascular congestion and cardiomegaly. TTE from [facility] 12/08/21 Prior Cardiac Studies: TTE [...] with MD Janneth Neville PA 12/12/2021 Pager [phone] Associated attestation - Ifeanyi Truong MD - [...] Desirae Jett APRN [facility] Endocrinology Diabetes Management Pager [phone] 20 minutes of this 35 minute visit [...] Progress Note Patient Name: Don Fatima Service: LETTER CARRIER / PA Responsible Attending: Iker Cuevas MD [...] + trop. Known CAD with hx of OH and CABG. DM. MARIA VICTORIA.ICM. ??? ASHD [...] was given Lasix 80mg IV x1 in cathode ray tube assembler. Tolerated procedure well. Review of Systems: Review [...] 1.43 -- 1.39 1.52* Recent Labs 12/09/21 0618 AST 25 ALT 15 ALKPHOS 75 BILITOT 1.1 BILIDIR 0.2 Recent Labs 12/11/2142712/10/21181112/10/2142412/09/21 19312/09/21617 CALCIUM 8.6 8.3* 8.0* < > 8.8 MAGNESIUM 1.04 -- 0.95 -- 0.81 < > = values in this interval not displayed. Recent Labs 12/09/2161712/08/21220212/08/21 180 TROPONINT 1.13* 0.92* 0.89* Pertinent Radiographic/Diagnostic Results: /[facility] 12/10/21 Hemodynamics: Right Heart Pressures [...] pulmonary vascular congestion and cardiomegaly. TTE from [facility] 12/08/21 Prior Cardiac Studies: TTE [...] and with normal saturations off oxygen. On 5 AM experienced acute hypoxia and dyspnea with evaluation consistent with acute pulmonary edema. A ggressive diuresis pursued. Underwent R/LHC 12/10/21 that showed elevated filling pressures with PCW 27 and occluded SVGs with patent THOMPSON-LAD. PCI to ostial LCX successful. Recommended outpatient staged PCI to RPDA. Will need optimized GDMT for ICM. Plan: # NSTEMI # ASCVD, s/p CABG 2017 Telemetry Troponin [...] answered his questions. Iker Cuevas MD [facility] Total time spent on review of records prior to visit, face to face time with patient during visit, documentation, and coordination of care with other clinicians: 25 minutes. . Iker Cuevas MD - 12/10/2021 12:30 PM EDT Images from the original note were not included. Inpatient Cardiology Progress Note Patient Name: Don Fatima Service: LETTER CARRIER / PA Responsible Attending: Iker Cuevas MD Reason for continued hospitalization: NSTEMI- s/p R/LHC- PCW 27, occluded SVGs s/p PCI to ostial LCX ADHF and hypoxia- IV diuresis Active Problems: Active Hospital Problems Diagnosis ??? Admitted with 2 days of sob, hypoxemia, and + trop. Known CAD with hx of OH and CABG. DM. MARIA VICTORIA.ICM. ??? ASHD [...] was given Lasix 80mg IV x1 in cathode ray tube assembler. Tolerated procedure well. Review of Systems: Review [...] ??? heparin (porcine) infusion 1,600 Units/hr (12/09/21 2712) PRN Meds:ipratropium-albuteroL, senna-docusate, bisacodyL, sodium chloride 0.9 [...] INR 1.7 Recent Labs 12/10/21 0425 12/09/210 12/09/21617 NA 140 138 139 K 3.9 4.2 4.2 CL 104 102 101 CO2 23 22 21* BUN 54* 56* 49* CREATININE 1.52* 1.75* 1.33 Recent Labs 12/09/21 0618 AST 25 ALT 15 ALKPHOS 75 BILITOT 1.1 BILIDIR 0.2 Recent Labs 12/10/21 04212/09/21 19312/09/2118 12/08/21 1802 CALCIUM 8.0* 8.1* 8.8 8.6 MAGNESIUM 0.95 -- 0.81 0.86 Recent Labs 12/09/2118 12/08/21 2203 12/08/21 1802 TROPONINT 1.13* 0.92* 0.89* Pertinent Radiographic/Diagnostic Results: R/[facility] 12/10/21 Hemodynamics: Right Heart Pressures [...] pulmonary vascular congestion and cardiomegaly. TTE from [facility] 12/08/21 Prior Cardiac Studies: TTE [...] Plan: # NSTEMI # ASCVD, s/p CABG 2017 Telemetry Troponin [...] Discussed with MD Migdalia Peter PA-C Pager #[phone] 12/10/2021 Cardiology Attending Note I have seen [...] and given pictures. Iker Cuevas MD [facility] Total time spent on review of records prior to visit, face to face time with patient during visit, documentation, and coordination of care with other clinicians: 35 minutes. Iker Cuevas MD - 12/09/2021 7:28 AM EDT Images from the original note were not included. Inpatient Cardiology Progress Note Patient Name: Don Fatima Service: LETTER CARRIER / PA Responsible Attending: Iker Cuevas MD Reason for continued hospitalization: NSTEMI- awaiting R/LHC ADHF and hypoxia- IV diuresis, R/LHC Active Problems: Active Hospital Problems Diagnosis ??? Admitted with 2 days of sob, hypoxemia, and + trop. Known CAD with hx of OH and CABG. DM. MARIA VICTORIA.ICM. ??? ASHD [...] 49* 41* CREATININE 1.33 1.44 Recent Labs 12/09/2118 AST 25 ALT 15 [...] pulmonary vascular congestion and cardiomegaly. TTE from [facility] 12/08/21 Prior Cardiac Studies: TTE [...] dosing 5 Mg HAYS/T/// and 7.5 mg M/TH. Daily INR Heparin infusion as above for [...] Discussed with MD Migdalia Peter PA-C Pager #[phone] 12/09/2021 Cardiology Attending Note I have seen and examined the patient. I agree with the findings above. Developed CHF early this am despite getting more iv lasix last evening. Feeling better now. INR > 2. Lungs still wet at base. Echo at [facility] showed EF 35% with mild mod MR slightly lower than last value here. -vit K 2.5 orally to facilitate correction of INR- this will take 12-24 hours to take effect -furosemide 80 mg iv now -postpone right and left heart cath until tomorrow given INR and ADHF -increase statin to achieve LDL < 70 -CPAP tonight Iker Cuevas MD [facility] Total time spent on review [...] + trop. Known CAD with hx of OH and CABG. DM. MARIA VICTORIA.ICM. ??? ASHD [...] prior thyroidectomy in 2012 who presented to [facility] with 1 week progressing breathlessness [...] visit 03/2021 with Liz Poole PA-C. At [facility], respiratory distress with hypoxia [...] SETUP performed by Manny Mcknight MD at [facility] OR ??? PRO AMPUTATION FOOT, TRANSMETATARSAL Right 08/09/2017 AMPUTATION, TRANSMETATARSAL (WRVU 12.71) performed by Yonathan Smith MD at [facility] OR ??? PRO CABG, ARTERIAL, SINGLE N/A 07/07/2017 @CABG, USING ARTERIAL GRAFT;SINGLE ARTERIAL GRAFT (WRVU 33.75) performed by Yuan Retana MD at [facility] OR ??? PRO CABG, ARTERY-VEIN, TWO N/A 07/07/2017 @CABG, TWO VENOUS GRAFTS & ARTERIAL GRAFT (WRVU 7.93) performed by Yuan Retana MD at [facility] OR ??? PRO COLONOSCOPY, REMV LESN, SNARE 01/16/2014 COLONOSCOPY, POLYPECTOMY, REMOVAL LESION BY SNARE performed by Nohemi Jaimes MD at [facility] ENDOSCOPY ??? PRO DRESSING CHANGE UNDER ANESTHESIA Right 08/11/2017 (MSURG) DRESSING CHANGE (FOR OTHER THAN IVAN) UNDER ANES. (WRVU 0.86) performed by Lamar Smith MD at [facility] OR ??? PRO ENDOSCOPY W/VIDEO-ASST VEIN HARVEST, CABG Right 07/07/2017 ENDOSCOPIC HARVEST VEIN(S) FOR CABG (WRVU 0.31) performed by Yuan Retana MD at [facility] OR ??? PRO THYROIDECTOMY 03/28/2013 THYROIDECTOMY, TOTAL OR COMPLETE performed by Manny Mcknight MD at [facility] MAIN OR Significant Family History: Family [...] (H) 65 - 199 mg/dL Labs at [facility] 12/08/2021-troponin I 8004 (UN L [...] Monitor for ADRs. Trend troponins. Admission EKG. [facility] 12/09; consented. TTE. Telemetry monitoring, daily weights, I/O routine labs. Fasting lipid panel and TSH in a.m. #HFrEF Continue metoprolol and losartan. Lisinopril caused cough. Furosemide 40mg IV x1. He states she usually wakes 200-210 pounds. TTE #Paroxysmal atrial fibrillation Currently in sinus rhythm. Holding warfarin which is followed by his PCP. Home dosing 5 Mg HAYS/T/W/F/SA and 7.5 mg M/TH. Heparin infusion as [...] code #Diet-carb control; n.p.o. after midnight for [facility] #DVT prophy- heparin infusion #GI prophy- PPI Discussed with MD Morgan Peter PA-C APP2 pager [phone] 12/08/2021 Cardiology Attending Note I have seen [...] is type 1 due to graft or [place] coronary stenosis vs acute injury from CHF. 3. PAF: currrently in NSR. Have replaced warfarin with heparin 4. PAD: stable 5. DM: stable 6. CKD: will monitor and minimize contrast. Pt very appreciative of Dr. Yuan Retana's care in 2018. Will let him know patient is here. Iker Cuevas MD [facility] documented in this encounter Miscellaneous [...] Type: *No Product type* / Secondary Insurance: [place] Prescription Coverage: Yes This plan was formulated [...] cath without complications. Migdalia Parker PA-C Pager #[phone] 12/10/2021 Initial Assessments - Nick Georges RN [...] COVID test: Lab Results Component Value Date [id number] Not Detected 12/08/2021 Past medical History: Past [...] receiving care at [facility] must abide by [place] law. The hierarchy [...] (i) The agent with financial power of corporate associate attorney or a conservator appointed in [...] - standard, cane - straight Home Address: [address] [place] [address] [place] [address] Social & Family Supports: All names listed below confirmed with patient as current and correct Extended Emergency Contact Information Primary Emergency Contact: Kisha Fatima Address: [address] [place] [address] [place] [address] [facility] Mobile Relation: Spouse Secondary Emergency Contact: Elba Swenson Address: [place], [place] [address] [place] [address] Mobile Relation: Child Current Care Provided by: [...] Type: *No Product type* / Secondary Insurance: [employer] [facility] Prescription Coverage: Yes Preferred Pharmacy: [facility] Home Delivery [facility] [id number] [address] - [place], [place] - [address] [place] [address] Status: Patient is a : unable to assess Primary Care Provider: Lovely Vicente MD [phone] Patient/Caregiver Goals of Treatment: Get out of here Potential Needs for Transition of Care: none Agency Referrals: none patient has used [facility] in the past Transportation: no concerns Transportation Anticipated: family or friend will provide Concerns to be Addressed: patient refuses services, discharge planning Assessment: Patient is admitted to APP2 Service pager [phone] for 76 y.o.??male??with h/o??CAD s/p 3vCABG (THOMPSON-LAD, [...] status on current unit. Nick Georges RN hydraulic pile hammer operator, Office of Care Management Pager: [phone] Brief Op Note - Vitaliy Nobles MD - 12/10/2021 8:31 AM EDT Images from the original note were not included. [facility] [place] [address] CORONARY ANGIOGRAM AND PERCUTANEOUS CORONARY INTERVENTION REPORT Patient: Don Fatima : 1945 MR number: [id number] Date of Service: 12/10/2021 Separating Machine Operator: Vitaliy Nobles MD Fellow: [place] [...] management and to provide a review of rat exterminator diabetes care. Diabetes History: Don Fatima has had diabetes for 10 years. He has been on insulin for the last several years andis managed by his PCP. Lives in [place], [place] with his . States that he [...] Hold] levothyroxine 175 mcg Oral Daily ??? [SEP Hold] losartan 100 mg Oral Daily ??? [SEP Hold] metoprolol tartrate 12.5 mg Oral Q6H LUZ ??? [SEP Hold] sodium chloride 0.9 % (flush) 5 mL Intravenous BID ??? [SEP Hold] insulin glargine (Lantus;Semglee) (100 unit/mL) subcutaneous injection 28 Units Subcutaneous Nightly ??? [SEP Hold] pantoprazole EC 40 mg Oral Daily Infusions: ??? [SEP Hold] nitroGLYcerin Stopped (12/10/21 0824) ??? [SEP Hold] heparin (porcine) infusion 1,600 Units/hr (12/09/21 9307) PRN: [SEP Hold] ipratropium-albuteroL, [SEP Hold] senna-docusate, [...] gm carb ratio for each meal) intermediate manager diabetes care: Medications - Outpatient treatment regimen recommendations pending based on the hospital course. Monitoring - continue BG tid ac & hs Diet - low fat/low carb diet Exercise - weight-bearing exercise 30 min/day, as tolerated Thank you for allowing us to provide care for your patient Desirae Johnie QUINONES Endocrinology Pager [phone] 70 minutes of this 80 minute visit [...] + trop. Known CAD with hx of OH and CABG. DM. MARIA VICTORIA.ICM. ??? ASHD [...] to remain on Med/Surg floor, please page [phone] for any further questions or concerns. LANDON [...] for further details. STEPHANIE Rebolledo 12/08/2021 Pager [phone] documented in this encounter Plan of Treatment Upcoming Encounters Date Type Specialty Care Team Description 03/26/2022 Office Visit Cardiology Nobles, Vitaliy P, MD [facility] CARDIOLOGY [place], [place] [address] (Wo rk) 06/10/2022 Office Visit Dermatology Laura Scherer MD [facility] [address] [facility] [place], [place] [address] (Wo rk) Scheduled Referrals Name [...] POC Glucose 215 (H) 65 - 199 [facility] LABORATORY Comment: Supplemental ranges: <140 mg/dL before meals <180 mg/dL all other times of the day Specimen Anatomical Collection Method Collection Time Receive d Time (Source) Location / / Volume Laterality Blood 12/12/2021 7:42 AM 7:42 EDT AM EDT Ifeanyi Truong MD POINT OF CARE TEST ORDERABLE S Performing Organization Address City/State/[place] [address] (ABNORMAL) Differential, Automated (12/12/2021 4:51 AM EDT) athologist Signature Neutrophils % 75.4 % [facility] Neutr Abs (ANC) 5.95 1.70 - [facility] 6.10 [facility] x10(3)/[facility] LABORATORY Lymphocytes % 12.2 % [facility] Lymphocytes Abs 1.0 0.9 - [address] [facility] x10(3)/[facility] LABORATORY Monocytes % 9.5 % [facility] Monocyte Abs 0.8 0.3 - [address].9 [facility] x10(3)/[facility] LABORATORY Eosinophils % 1.8 % [facility] Eosinophils Abs 0.1 0.0 - [address] [facility] x10(3)/[facility] LABORATORY Basophils % 0.5 % [facility] Basophils Abs 0.0 0.0 - [address] [facility] x10(3)/[facility] LABORATORY Immature Gran % 0.60 % [...] Organization Address City/State/[place] [address] (ABNORMAL) Hemogram (12/12/2021 4:51 AM EDT) Analysis Performed At Patho logist Time Signature WBC 7.9 4.0 - [address].5 [facility] x10(3)/[facility] LABORATORY RBC 4.19 (L) 4.58 - [facility] 5.54 [facility] x10(6)/[facility] LABORATORY Hemoglobin 12.1 (L) 13.7 - [facility] 16.5 g/dL [facility] LABORATORY Hematocrit 36.7 (L) 40.5 - [facility] 48.5 % [facility] LAB[facility] MCV 87.6 82.9 - [facility] 93.1 [facility] LABORATORY MCH 28.9 27.5 - [facility] R[facility]AN 32.1 pg [facility] LABORATORY MCHC 33.0 32.0 - [facility] 35.7 g/dL [facility] LABORATORY Platelets 231 145 - 357 [facility] x10(3)/[facility] LABORATORY RDWSD 47.2 (H) 36.0 - [facility] 45.0 [facility] LABORATORY RDWCV 14.6 (H) 11.4 - [facility] 13.8 % [facility] LABORATORY MPV 9.5 7.6 - 12.9 [facility] nRBC % Auto 0.0 % [facility] nRBC Abs Auto 0.000 0.000 - [facility] 0.000 [facility] x10(3)/[facility] LABORATORY Specimen Anatomical Collection Method Collection Time Receive d Time (Source) Location / / Volume Laterality Blood 12/12/2021 4:51 AM 2 5:06 EDT AM EDT Resulting Agency Comment Spec In Lab Bijan Sun MD HEMATOLOGY ORDERABLES Performing Organization Address City/[facility]/ZIP [facility] [place] [address] (ABNORMAL) Prothrombin Time (12/12/2021 4:51 AM EDT) P athologist Signature PT 14.9 (H) 9.4 - 12.5 [facility] LABORATORY INR 1.3 [facility]/ZIP Code Phon e Number [place] [id number] (ABNORMAL) BMP w/fasting Glucose (12/12/2021 4:51 AM EDT) P athologist Signature Glucose 152 (H) 65 - 99 [facility] Fasting mg/dL [facility] LABORATORY Comment: ?Fasting* Glucose Interpretive C riteria [...] point between stages may be based on sloani brice assessment of muscle mass and symptoms in addition to eGFR. Specimen Anatomical Collection Method Collection Time Receive d Time (Source) Location / / Volume Laterality Blood 12/12/2021 4:51 AM 2 5:06 EDT AM EDT Resulting Agency Comment Spec In Lab Iker Cuevas MD CHEMISTRY ORDERABLES Performing Organization Address City/[facility]/[place] [address] Magnesium (12/12/2021 4:51 AM EDT) athologist Signature Magnesium 1.02 0.69 - [address].07 [facility] mmol/L [facility] [facility] Specimen Anatomical Collection Method Collection Time Receive d Time (Source) Location / / Volume Laterality Blood 12/12/2021 4:51 AM 2 5:06 EDT AM EDT Resulting Agency Comment Spec In Lab Iker Cuevas MD CHEMISTRY ORDERABLES Performing Organization Address City/[facility]/[place] [address] POCT Glucose (12/12/2021 3:43 AM EDT) athologist Signature POC Glucose 138 65 - 199 [facility] Comment: Supplemental ranges: <140 mg/dL before meals <180 mg/dL all other times of the day Specimen Anatomical Collection Method Collection Time Receive d Time (Source) Location / / Volume Laterality Blood 12/12/2021 3:43 AM 2 3:43 EDT AM EDT Iker Cuevas MD POINT OF CARE TEST ORDERABLE S Performing Organization Address City/[facility]/ZIP Code Phon e Number [address] POCT Glucose (12/11/2021 11:44 PM EDT) athologist Signature POC Glucose 124 65 - 199 [facility]/dL [facility] Comment: Supplemental ranges: <140 mg/dL before meals <180 mg/dL all other times of the day Specimen Anatomical Collection Method Collection Time Receive d Time (Source) Location / / Volume Laterality Blood 12/11/2021 11:44 12/11/2021 PM EDT 11:44 PM EDT Iker Cuevas MD POINT OF CARE TEST ORDERABLE S Performing Organization Address City/State/[place] [address] (ABNORMAL) POCT Glucose (12/11/2021 8:12 PM EDT) P athologist Signature POC Glucose 200 (H) 65 - 199 [facility] mg/dL [facility] Comment: Supplemental ranges: <140 mg/dL before meals <180 mg/dL all other times of the day Specimen Anatomical Collection Method Collection Time Receive d Time (Source) Location / / Volume Laterality Blood 12/11/2021 8:12 PM 2 8:12 EDT PM EDT Iker Cuevas MD POINT OF CARE TEST ORDERABLE S Performing Organization Address City/State/[place] [address] (ABNORMAL) POCT Glucose (12/11/2021 6:50 PM EDT) P athologist Signature POC Glucose 245 (H) 65 - 199 [facility] mg/dL [facility] Comment: Supplemental ranges: <140 mg/dL before meals <180 mg/dL all other times of the day Specimen Anatomical Collection Method Collection Time Receive d Time (Source) Location / / Volume Laterality Blood 12/11/2021 6:50 PM 2 6:50 EDT PM EDT Iker Cuevas MD POINT OF CARE TEST ORDERABLE S Performing Organization Address City/State/[place] [address] (ABNORMAL) POCT Glucose (12/11/2021 4:00 PM EDT) P athologist Signature POC Glucose 383 (H) 65 - 199 [place] mg/dL [facility] Comment: Supplemental ranges: <140 mg/dL before meals <180 mg/dL all other times of the day Specimen Anatomical Collection Method Collection Time Receive d Time (Source) Location / / Volume Laterality Blood 12/11/2021 4:00 PM 4:00 EDT PM EDT Iker Cuevas MD POINT OF CARE TEST ORDERABLE S Performing Organization Address City/State/[place] [address] (ABNORMAL) POCT Glucose (12/11/2021 12:01 PM EDT) P athologist Signature POC Glucose 342 (H) 65 - 199 [facility] mg/dL [facility] Comment: Supplemental ranges: <140 mg/dL before meals <180 mg/dL all other times of the day Specimen Anatomical Collection Method Collection Time Receive d Time (Source) Location / / Volume Laterality Blood 12/11/2021 12:01 12/11/2021 PM EDT 12:01 PM EDT Iker Cuevas MD POINT OF CARE TEST ORDERABLE S Performing Organization Address City/State/[place] [address] COVID-19 PCR (12/11/2021 10:13 [...] diagnosis of COVID-19 is performed using the [employer] RONNA S-CoV-2 Assay as authorized by the FDA Emergency Use Authorization (EUA). This EUA assay is intended for In-vitro Diagnostic (IVD) use with respiratory sp ecimens such as nasopharyngeal swabs collected from individuals during the ac terrence phase of infection. This assay is performed based on the instructions for use provided by [employer] and additional guidance provided by CDC and FDA. Testing is performed in the [facility] within the [...] fact sheets at the following FDA website: https://www.fda.gov/medical-devices/hccvcuweqam-wysyvlz-9634-mbdxj-23-zunljnqtc- aga-sgtxwyazflwlla-gepfbdm-devices/cochz-ljcfddnbcbe-qjup SARS-Cov-2 RNA Source LETTER CARRIER Swab [facility] Specimen (Source) Anatomical Collection Method Collection Time Re ceived Time Location / / Volume Laterality Nasopharyngeal Swab 12/11/2021 10:13 11/23 AM EDT 11:16 AM EDT Comment: Symptoms->Surveillance Resulting Agency Comment Spec In Lab Iker Cuevas MD MICROBIOLOGY - GENERAL ORDER [place] Performing Organization Address City/State/[place] [address] POCT Glucose (12/11/2021 7:34 AM EDT) athologist Signature POC Glucose 198 65 - 199 [facility] Comment: Supplemental ranges: <140 mg/dL before meals <180 mg/dL all other times of the day Specimen Anatomical Collection Method Collection Time Receive d Time (Source) Location / / Volume Laterality Blood 12/11/2021 7:34 AM 2 7:34 EDT AM EDT Iker Cuevas MD POINT OF CARE TEST ORDERABLE S Performing Organization Address City/[facility]/[place] [address] (ABNORMAL) POCT Glucose (12/11/2021 5:07 AM EDT) P athologist Signature POC Glucose 208 (H) 65 - 199 [facility]/dL [facility] Comment: Supplemental ranges: <140 mg/dL before meals <180 mg/dL all other times of the day Specimen Anatomical Collection Method Collection Time Receive d Time (Source) Location / / Volume Laterality Blood 12/11/2021 5:07 AM 2 5:07 EDT AM EDT Iker Cuevas MD POINT OF CARE TEST ORDERABLE S Performing Organization Address City/State/[place] [address] (ABNORMAL) Differential, Automated (12/11/2021 4:28 AM EDT) [facility] gist Method Time Signature Neutrophils % 79.6 % [facility] Neutr Abs (ANC) 7.01 (H) 1.70 - [facility] 6.10 [facility] x10(3)/[facility] L LABORATORY Lymphocytes % 9.1 % [facility] Lymphocytes Abs 0.8 (L) 0.9 - 3.2 [facility] x10(3)/[facility] LABORATORY Monocytes % 9.2 % [facility] Monocyte Abs 0.8 0.3 - 0.9 [facility] x10(3)/[facility] LABORATORY Eosinophils % 1.3 % [facility] Eosinophils Abs 0.1 0.0 - 0.4 [facility] x10(3)/[facility] LABORATORY Basophils % 0.5 % [facility] Basophils Abs 0.0 0.0 - 0.1 [facility] x10(3)/[facility] LABORATORY Immature Gran [...] Melisa Gran Abs 0.03 0.00 - 0.04 x10(3)/[facility] LABORATORY Specimen Anatomical Collection Method Collection Time Receive d Time (Source) Location / / Volume Laterality Blood 12/11/2021 4:28 AM 4:37 EDT AM EDT Resulting Agency Comment Spec In Lab Bijan Sun MD HEMATOLOGY ORDERABLES Performing Organization Address City/State/[place] [address] (ABNORMAL) Hemogram (12/11/2021 4:28 AM EDT) Analysis Performed At Patho logist Time Signature WBC 8.8 4.0 - 9.5 [facility] x10(3)/[facility] LABORATORY RBC 4.15 (L) 4.58 - [facility] 5.54 [facility] x10(6)/[facility] LABORATORY Hemoglobin 11.9 (L) 13.7 - [facility] 16.5 g/dL [facility] Hematocrit 36.9 (L) 40.5 - [facility] 48.5 % [facility] MCV 88.9 82.9 - [facility] 93.1 [facility] LABORATORY MCH 28.7 27.5 - [facility] OL[facility]CK 32.1 pg [facility] MCHC 32.2 32.0 - [facility] 35.7 g/dL [facility] Platelets 211 145 - 357 [facility] x10(3)/[facility] LABORATORY RDWSD 48.3 (H) 36.0 - [place] [place] 45.0 [facility] LABORATORY RDWCV 14.8 (H) 11.4 - [facility] 13.8 % [facility] MPV 9.6 7.6 - 12.9 [facility] LABORATORY nRBC % Auto 0.0 % [facility] nRBC Abs Auto 0.000 0.000 - [place] 0.000 [facility] x10(3)/[facility] LABORATORY Specimen Anatomical Collection Method Collection Time Receive d Time (Source) Location / / Volume Laterality Blood 12/11/2021 4:28 AM 2 4:37 EDT AM EDT Resulting Agency Comment Spec In Lab Bijan Sun MD HEMATOLOGY ORDERABLES Performing Organization Address City/State/ZIP Code Phon e Number [place] [id number]OS[address] LAB[address]ORY Drive (ABNORMAL) Prothrombin Time (12/11/2021 4:28 AM EDT) P athologist Signature PT 17.7 (H) 9.4 - 12.5 [facility] LABORATORY INR 1.6 [facility] [...] Organization Address City/State/[place] [address] (ABNORMAL) BMP w/fasting Glucose (12/11/2021 4:28 AM EDT) P athologist Signature Glucose 207 (H) 65 - 99 [facility] Fasting mg/dL [facility] Comment: ?Fasting* Glucose Interpretive C riteria [...] [facility] LAB[facility]ORY Estimated GFR 48 (L) [...] Organization Address City/State/[place] [address] Magnesium (12/11/2021 4:28 AM EDT) P athologist Signature Magnesium 1.04 0.69 - 1.07 [facility] mmol/L [facility] Specimen Anatomical Collection Method Collection Time Receive d Time (Source) Location / / Volume Laterality Blood 12/11/2021 4:28 AM 2 4:37 EDT AM EDT Resulting Agency Comment Spec In Lab Iker Cuevas MD CHEMISTRY ORDERABLES Performing Organization Address City/[facility]/[place] [address] POCT Glucose (12/11/2021 3:58 AM EDT) P athologist Signature POC Glucose 189 65 - 199 [facility] mg/dL [facility] Comment: Supplemental ranges: <140 mg/dL before meals <180 mg/dL all other times of the day Specimen Anatomical Collection Method Collection Time Receive d Time (Source) Location / / Volume Laterality Blood 12/11/2021 3:58 AM 2 3:58 EDT AM EDT Iker Cuevas MD POINT OF CARE TEST ORDERABLE S Performing Organization Address City/[facility]/[place] [address] (ABNORMAL) POCT Glucose (12/10/2021 11:45 PM EDT) athologist Signature POC Glucose 205 (H) 65 - 199 [facility] mg/dL [facility] Comment: Supplemental ranges: <140 mg/dL before meals <180 mg/dL all other times of the day Specimen Anatomical Collection Method Collection Time Receive d Time (Source) Location / / Volume Laterality Blood 12/10/2021 11:45 12/10/2021 PM EDT 11:45 PM EDT Iker Cuevas MD POINT OF CARE TEST ORDERABLE S Performing Organization Address City/[facility]/[place] [address] (ABNORMAL) POCT Glucose (12/10/2021 7:54 PM EDT) athologist Signature POC Glucose 225 (H) 65 - 199 [facility]/dL [facility] Comment: Supplemental ranges: <140 mg/dL before meals <180 mg/dL all other times of the day Specimen Anatomical Collection Method Collection Time Receive d Time (Source) Location / / Volume Laterality Blood 12/10/2021 7:54 PM 2 7:54 EDT PM EDT Iker Cuevas MD POINT OF CARE TEST ORDERABLE S Performing Organization Address City/State/[place] [address] Potassium (12/10/2021 7:46 PM EDT) athologist Signature Potassium 4.2 3.5 - 5.0 [facility] mmol/L [facility] Comment: Please note: ??Patients with WBC [...] Organization Address City/State/[place] [address] (ABNORMAL) Basic Metabolic Panel (non-fasting) (12/10/2021 6:12 PM EDT) athologist Signature Glucose Lvl 246 (H) 65 - 199 [facility] mg/dL [facility] Comment: Diabetes: >=200 mg/dL plus symp toms BUN 50 (H) 10 - 20 mg/dL [facility]ORY Creatinine 1.39 0.80 - 1.50 mg/dL [facility] LABORATORY Sodium 138 135 - 145 mmol/L [facility] LABORATORY Potassium Not Perf 3.5 - 5.0 [facility] Comment: Unable to quantitate due to sample hemol ysis. ??Sample redraw suggested. Called by: leana, Read back by: juanvasiliy jaswant, Date/Time:12/10/21 19:06. Please note: ??Patients with WBC [...] Calcium 8.3 (L) 8.5 - 10.5 mg/dL [facility] [...] [facility]/[place] [address] POCT Glucose (12/10/2021 4:59 PM EDT) athologist Signature POC Glucose 158 65 - 199 [place] mg/dL [facility] Comment: Supplemental ranges: <140 mg/dL before meals <180 mg/dL all other times of the day Specimen Anatomical Collection Method Collection Time Receive d Time (Source) Location / / Volume Laterality Blood 12/10/2021 4:59 PM 2 4:59 EDT PM EDT Iker Cuevas MD POINT OF CARE TEST ORDERABLE S Performing Organization Address City/State/ZIP [facility] [place] [address] (ABNORMAL) POCT Glucose (12/10/2021 12:43 PM EDT) athologist Signature POC Glucose 241 (H) 65 - 199 [facility] mg/dL [facility] Comment: Supplemental ranges: <140 mg/dL before meals <180 mg/dL all other times of the day Specimen Anatomical Collection Method Collection Time Receive d Time (Source) Location / / Volume Laterality Blood 12/10/2021 12:43 12/10/2021 PM EDT 12:43 PM EDT Iker Cuevas MD POINT OF CARE TEST ORDERABLE S Performing Organization Address City/State/[place] [address] EKG 12 Lead (12/10/2021 11:17 AM EDT) Component Value Ref Range Test Analysis Performed Pathologis t Method Time At Signature Ventricular rate 62 BPM MUSE SYSTEM Atrial Rate 62 BPM MUSE SYSTEM P-R Interval 142 ms MUSE SYSTEM QRS Duration 100 ms MUSE SYSTEM Q-T Interval 434 ms MUSE SYSTEM QTC Calculated 440 ms MUSE SYSTEM (Bezet) Calculated P Pierce 34 degrees MUSE SYSTEM Calculated R Pierce -39 degrees MUSE SYSTEM Calculated T Pierce 92 degrees MUSE SYSTEM INTERPRETATION Normal sinus [...] SYSTEM - 12/10/2021 12:04 PM E DT ?[facility] ? Cardiac Cathete rization/Intervention Report ? Patient Name: Don Fatima. ? Procedure Date: 12/10/2021 ? A #: [id number] ? Primary Physician: Nobles, Vitaliy P ? Case #: [id number] ? File Name: [id number] ? Catheterization Order Number: [id number] ? [facility] ? Final Report [place], [place] ? Patient Name: ? Don E. Stewa rt ? ID#: ?[id number] ? : ?1945 ? Procedure Date: ? December 10, 2021 ? Case #: ? [id number] ? Room: ? 1 ? Case Physician: [...] was ?designated as ASA Class III. e [facility] clinical frailty scale is 5: Mildly ?Frail. [...] was Urgent. The indication for ?the cathode ray tube assembler visit is ACS great er than 24 [...] ?3.75 guiding catheter and a 3.5 Fr [facility] [place] 20 Mhz using Manual ?pullback. ??Imaging was [...] ?3.75 guiding catheter and a 3.5 Fr [facility] [place] 20 Mhz using Manual ?pullback. ??Imaging was [...] regimen. C onsult [facility] Interventional Cardiology for ?questions. ?The 1 year bleeding risk as nusrat culated by the PRECISE DAPT score is High ?risk. ?High Bleeding Risk - Anticoagul ation and DAPT: ?- ??Assess ischemic and bleedin g risks using validated risk predictors ?(e.g. CHADS2-VASC, HAS-BLED, FL ECISE DAPT, DAPT Score) ?- ??Keep anticoagulant [...] Procedure Note Vitaliy Nobles MD - 01/14/2022 [facility] Cardiac Catheterization/Intervention Re port Patient Name: Don FatimaMadiha Procedure Date: 12/10/2021 A #: [id number] Primary Physician: Vitaliy Nobles Case #: [id number] File Name: [id number] Catheterization Order Number: [id number] [facility] Final Report [place], [place] Patient Name: Don Fatima ID#: [...] e was Urgent. The indication for the cathode ray tube assembler visit is ACS greater than 24 hrs [...] and a 3.5 Fr [facility] [place] 20 Mhz using Manual pullback. Imaging was [...] and a 3.5 Fr [facility] [place] 20 Mhz using Manual pullback. Imaging was [...] require modification of this regimen. Consult D [facility] Interventional Cardiology for questions. The 1 year [...] POC Glucose 262 (H) 65 - 199 [facility]/dL [facility] Comment: Supplemental ranges: <140 mg/dL before meals <180 mg/dL all other times of the day Specimen Anatomical Collection Method Collection Time Receive d Time (Source) Location / / Volume Laterality Blood 12/10/2021 10:30 12/10/2021 AM EDT 10:30 AM EDT Iker Cuevas MD POINT OF CARE TEST ORDERABLE S Performing Organization Address City/[facility]/[place] [address] (ABNORMAL) POCT Glucose (12/10/2021 9:48 AM EDT) athologist Signature POC Glucose 279 (H) 65 - 199 [facility] mg/dL [facility] Comment: Supplemental ranges: <140 mg/dL before meals <180 mg/dL all other times of the day Specimen Anatomical Collection Method Collection Time Receive d Time (Source) Location / / Volume Laterality Blood 12/10/2021 9:48 AM 9:48 EDT AM EDT Iker Cuevas MD POINT OF CARE TEST ORDERABLE S Performing Organization Address City/[facility]/[place] [address] (ABNORMAL) POCT Glucose (12/10/2021 9:07 AM EDT) athologist Signature POC Glucose 268 (H) 65 - 199 [facility] mg/dL [facility] Comment: Supplemental ranges: <140 mg/dL before meals <180 mg/dL all other times of the day Specimen Anatomical Collection Method Collection Time Receive d Time (Source) Location / / Volume Laterality Blood 12/10/2021 9:07 AM 9:07 EDT AM EDT Iker Cuevas MD POINT OF CARE TEST ORDERABLE S Performing Organization Address City/State/Z[place] [address] (ABNORMAL) Point of Care Blood Gas Historical (12/10/2021 9:04 AM EDT) Patholo gist Method Time Signature POC pH 7.40 7.35 - [facility] 7.45 [facility] POC PCO2 40 35 - 45 [facility] LABORATORY POC PO2 63 (L) 85 - 104 [facility] LABORATORY POC Base Excess 0.0 -3.0 - 3.0 [facility] K mmol/L [facility]ORY POC HCO3 24.8 20.[address] - [facility] 26.0 [facility] POC Sodium 143 135 - 145 [facility] mmol/L [facility] POC Potassium 3.7 3.5 - 5.0 [facility] mmol/L [facility] POC Ionized Ca 1.07 (L) 1.15 - [facility] 1.33 [facility] LAB[facility]ATORY POC Hematocrit 30.0 (L) 40.0 - [facility] 51.0 % [facility] POC Calc Hgb 10.2 (L) 13.7 - [facility] 17.5 g/dL [facility] Comment: The calculation of hemoglobin f rom hematocrit assumes a normal MCHC. POC Bgas Loc CC LAB [facility] LABORATORY Specimen Anatomical Collection Method Collection Time Receive d Time (Source) Location / / Volume Laterality Blood 12/10/2021 9:04 AM 2 EDT 12:00 PM EDT Ifeanyi Truong MD CHEMISTRY ORDERABLES Performing Organization Address City/State/[place] [address] (ABNORMAL) POCT Glucose (12/10/2021 7:19 AM EDT) P athologist Signature POC Glucose 274 (H) 65 - 199 [facility] mg/dL [facility] LAB[facility]ORY Comment: Supplemental ranges: <140 mg/dL before meals <180 mg/dL all other times of the day Specimen Anatomical Collection Method Collection Time Receive d Time (Source) Location / / Volume Laterality Blood 12/10/2021 7:19 AM 2 7:19 EDT AM EDT Iker Cuevas MD POINT OF CARE TEST ORDERABLE S Performing Organization Address City/[facility]/[place] [address] Heparin (unfractionated) Level (12/10/2021 4:25 AM EDT) athologist [facility] Heparin UFH 0.69 IU/mL [facility] LABORATORY Comment: Heparin (anti-Xa) levels [...] [facility]/ZIP Code Phon e Number [address] (ABNORMAL) Differential, Automated (12/10/2021 4:25 AM EDT) Patholo gist Method Time Signature Neutrophils % 79.8 % [facility] LABORATORY Neutr Abs (ANC) 7.47 (H) 1.70 - [facility] 6.10 [facility] x10(3)/[facility] L LABORATORY Lymphocytes % 10.6 % [facility] LAB[facility]ATORY Lymphocytes Abs 1.0 0.9 - 3.2 [facility] x10(3)/[facility] LABORATORY Monocytes % 8.4 % [facility] LAB[facility]ATORY Monocyte Abs 0.8 0.3 - 0.9 [facility] x10(3)/[facility] LABORATORY Eosinophils % 0.6 % [facility]ORY Eosinophils Abs 0.1 0.0 - 0.4 [facility] x10(3)/[facility] LABORATORY Basophils % 0.2 % [facility]ORY Basophils Abs 0.0 0.0 - [address].1 [facility] x10(3)/[facility] LABORATORY Immature Gran [...] Melisa Gran Abs 0.04 0.00 - 0.04 x10(3)/[facility] MAR [facility] LABORATORY Specimen Anatomical Collection Method Collection Time Receive d Time (Source) Location / / Volume Laterality Blood 12/10/2021 4:25 AM 2 4:34 EDT AM EDT Resulting Agency Comment Spec In Lab Morgan BROWN HEMATOLOGY ORDERABLES Performing Organization Address City/State/[place] [address] (ABNORMAL) Hemogram (12/10/2021 4:25 AM EDT) Analysis Performed At Patho logist Time Signature WBC 9.4 4.0 - 9.5 [facility] x10(3)/[facility] LABORATORY RBC 3.81 (L) 4.58 - [facility] 5.54 [facility] x10(6)/[facility] LABORATORY Hemoglobin 11.1 (L) 13.7 - BARBARA RYAN 16.5 g/dL [facility] LABORATORY Hematocrit 34.0 (L) 40.5 - BARBARA DAVIS 48.5 % [facility] LABORATORY MCV 89.2 82.9 - [place] RYAN 93.1 [facility] LABORATORY MCH 29.1 27.5 - [place] 32.1 pg [facility] LABORATORY MCHC 32.6 32.0 - BARBARA OLIVASCK 35.7 g/dL [facility] LABORATORY Platelets 183 145 - 357 [facility] x10(3)/[facility] LABORATORY RDWSD 49.9 (H) 36.0 - [place] DAVIS 45.0 [facility] RDWCV 15.2 (H) 11.4 - [facility] RYAN 13.8 % [facility] LABORATORY MPV 9.8 7.6 - 12.9 [facility] nRBC % Auto 0.0 % [facility] [place] [place] nRBC Abs Auto 0.000 0.000 - [place] RYAN 0.000 [facility] x10(3)/[facility] LABORATORY Specimen Anatomical Collection Method Collection Time Receive d Time (Source) Location / / Volume Laterality Blood 12/10/2021 4:25 AM 4:34 EDT AM EDT Resulting Agency Comment Spec In Lab Morgan BROWN HEMATOLOGY ORDERABLES Performing Organization Address City/State/[place] [address] (ABNORMAL) Prothrombin Time (12/10/2021 4:25 AM EDT) P athologist Signature PT 20.0 (H) 9.4 - 12.5 [facility] LABORATORY INR 1.7 [facility] Organization Address City/State/[place] [address] (ABNORMAL) BMP w/fasting Glucose (12/10/2021 4:25 AM EDT) athologist Signature Glucose 210 (H) 65 - 99 [facility] Fasting mg/dL [facility] LABORATORY Comment: ?Fasting* Glucose Interpretive C riteria [...] Calcium 8.0 (L) 8.5 - 10.5 mg/dL [place] [...] Organization Address City/State/ZIP Code Phon e Number [address] Magnesium (12/10/2021 4:25 AM EDT) P athologist Signature Magnesium 0.95 0.69 - 1.07 [facility] mmol/L [facility] LABORATORY Specimen Anatomical Collection Method Collection Time Receive d Time (Source) Location / / Volume Laterality Blood 12/10/2021 4:25 AM 2 4:34 EDT AM EDT Resulting Agency Comment Spec In Lab Iker Cuevas MD CHEMISTRY ORDERABLES Performing Organization Address City/[facility]/ZIP Code Phon e Number [address] POCT Glucose (12/10/2021 1:58 AM EDT) P athologist Signature POC Glucose 164 65 - 199 [facility] mg/dL [facility] LABORATORY Comment: Supplemental ranges: <140 mg/dL before meals <180 mg/dL all other times of the day Specimen Anatomical Collection Method Collection Time Receive d Time (Source) Location / / Volume Laterality Blood 12/10/2021 1:58 AM 2 1:58 EDT AM EDT Iker Cuevas MD POINT OF CARE TEST ORDERABLE S Performing Organization Address City/[facility]/[place] [address] (ABNORMAL) POCT Glucose (12/09/2021 9:02 PM EDT) athologist Signature POC Glucose 313 (H) 65 - 199 [facility] mg/dL [facility] LABORATORY Comment: Supplemental ranges: <140 mg/dL before meals <180 mg/dL all other times of the day Specimen Anatomical Collection Method Collection Time Receive d Time (Source) Location / / Volume Laterality Blood 12/09/2021 9:02 PM 2 9:02 EDT PM EDT Iker Cuevas MD POINT OF CARE TEST ORDERABLE S Performing Organization Address City/State/[place] [address] Heparin (unfractionated) Level (12/09/2021 7:30 PM EDT) athologist Signature Heparin UFH 0.48 IU/mL [facility] LABORATORY Comment: Heparin (anti-Xa) levels [...] Organization Address City/State/[place] [address] (ABNORMAL) Basic Metabolic Panel (non-fasting) (12/09/2021 7:30 PM EDT) athologist Signature Glucose Lvl 372 (H) 65 - 199 [facility] mg/dL [facility] LABORATORY Comment: Diabetes: >=200 mg/dL plus symp [...] [facility] LABORATORY Estimated GFR 37 (L) [...] Organization Address City/State/[place] [address] (ABNORMAL) POCT Glucose (12/09/2021 6:34 PM EDT) athologist Signature POC Glucose 408 (H) 65 - 199 [facility] LABORATORY Comment: Supplemental ranges: <140 mg/dL before meals <180 mg/dL all other times of the day Specimen Anatomical Collection Method Collection Time Receive d Time (Source) Location / / Volume Laterality Blood 12/09/2021 6:34 PM 2 6:34 EDT PM EDT Iker Cuevas MD POINT OF CARE TEST ORDERABLE S Performing Organization Address City/[facility]/[place] [address] (ABNORMAL) POCT Glucose (12/09/2021 6:32 PM EDT) athologist Signature POC Glucose 356 (H) 65 - 199 [facility] mg/dL [facility] LABORATORY Comment: Supplemental ranges: <140 mg/dL before meals <180 mg/dL all other times of the day Specimen Anatomical Collection Method Collection Time Receive d Time (Source) Location / / Volume Laterality Blood 12/09/2021 6:32 PM 2 6:32 EDT PM EDT Iker Cuevas MD POINT OF CARE TEST ORDERABLE S Performing Organization Address City/State/[place] [address] (ABNORMAL) POCT Glucose (12/09/2021 4:19 PM EDT) athologist Signature POC Glucose 347 (H) 65 - 199 BAR[place] RYAN mg/dL [facility] LABORATORY Comment: Supplemental ranges: <140 mg/dL before meals <180 mg/dL all other times of the day Specimen Anatomical Collection Method Collection Time Receive d Time (Source) Location / / Volume Laterality Blood 12/09/2021 4:19 PM 2 4:19 EDT PM EDT Iker Cuevas MD POINT OF CARE TEST ORDERABLE S Performing Organization Address City/State/[place] [address] Heparin (unfractionated) Level (12/09/2021 1:29 PM EDT) athologist Signature Heparin UFH 0.42 IU/mL [facility] LABORATORY Comment: Heparin (anti-Xa) levels [...] [facility]/[place] [address] (ABNORMAL) POCT Glucose (12/09/2021 12:02 PM EDT) athologist Signature POC Glucose 235 (H) 65 - 199 [facility] mg/dL [facility] LABORATORY Comment: Supplemental ranges: <140 mg/dL before meals <180 mg/dL all other times of the day Specimen Anatomical Collection Method Collection Time Receive d Time (Source) Location / / Volume Laterality Blood 12/09/2021 12:02 12/09/2021 PM EDT 12:02 PM EDT Iker Cuevas MD POINT OF CARE TEST ORDERABLE S Performing Organization Address City/State/[place] [address] (ABNORMAL) POCT Glucose (12/09/2021 9:44 AM EDT) P athologist Signature POC Glucose 214 (H) 65 - 199 [facility] mg/dL [facility] LABORATORY Comment: Supplemental ranges: <140 mg/dL before meals <180 mg/dL all other times of the day Specimen Anatomical Collection Method Collection Time Receive d Time (Source) Location / / Volume Laterality Blood 12/09/2021 9:44 AM 9:44 EDT AM EDT Iker Cuevas MD POINT OF CARE TEST ORDERABLE S Performing Organization Address City/[facility]/[place] [address] EKG 12 Lead (12/09/2021 7:57 AM EDT) Component Value Ref Range Test Analysis Performed Pathologis t Method Time At Signature Ventricular rate 101 BPM MUSE SYSTEM Atrial Rate 101 BPM MUSE SYSTEM P-R Interval 150 ms MUSE SYSTEM QRS Duration 112 ms MUSE SYSTEM Q-T Interval 364 ms MUSE SYSTEM QTC Calculated 471 ms MUSE SYSTEM (Bezet) Calculated P Pierce 59 degrees MUSE SYSTEM Calculated R Pierce -42 degrees MUSE SYSTEM Calculated T Pierce 102 degrees MUSE SYSTEM INTERPRETATION Sinus tachycardia Occasional Premature ventricular com plexes MUSE SYSTEM Left axis deviation 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) Abnormal ECG When compared with ECG of 08-DEC-2021 16:40, Premature ventricular complexes are now Present Confirmed by MD Jim, Yoon ([id number]) on 12/10/2021 4:55:06 PM Specimen Anatomical Collection Method Collection Time Receive d Time (Source) Location / / Volume Laterality 12/09/2021 7:57 AM 4:55 EDT PM EDT Iker Cuevas MD ECG ORDERABLES Performing Organization Address City/State/ZIP Code Phon e Number MUSE SYSTEM (ABNORMAL) POCT Glucose (12/09/2021 7:28 AM EDT) P athologist Signature POC Glucose 263 (H) 65 - 199 [facility] mg/dL [facility] LABORATORY Comment: Supplemental ranges: <140 mg/dL before meals <180 mg/dL all other times of the day Specimen Anatomical Collection Method Collection Time Receive d Time (Source) Location / / Volume Laterality Blood 12/09/2021 7:28 AM 7:28 EDT AM EDT Iker Cuevas MD POINT OF CARE TEST ORDERABLE S Performing Organization Address City/State/[place] [address] (ABNORMAL) Hemoglobin A1c (12/09/2021 [...] [id number] Est Avg Gluc See note mg/dL [facility] LABORATORY Comment: Estimated Average Glucose not [...] hemoglobinopathies. Additional resources are available on [facility] ADA website. Macario HAMMOND, Ruthann J, Deysi R, et al. ??Tr anslating the A1C assay into estimated average glucose values. ??Diabetes Care 2008:31(8):5881-4551. Specimen Anatomical Collection Method Collection Time Receive d Time (Source) Location / / Volume Laterality Blood Venous Draw / 12/09/2021 6:18 AM 12/10/19 22 Unknown EDT 12:24 PM EDT Resulting Agency Comment Spec In Lab Migdalia BROWN CHEMISTRY ORDERABLES Performing Organization Address City/State/[place] [address] (ABNORMAL) Prothrombin Time (12/09/2021 6:18 AM EDT) P athologist Signature PT 26.6 (H) 9.4 - 12.5 [facility] LABORATORY INR 2.3 [facility] [...] Organization Address City/State/[place] [address] Heparin (unfractionated) Level (12/09/2021 6:18 AM EDT) P athologist Signature Heparin UFH 0.24 IU/mL [facility] LABORATORY Comment: Heparin (anti-Xa) levels [...] Organization Address City/State/[place] [address] (ABNORMAL) Differential, Automated (12/09/2021 6:18 AM EDT) Patholo gist Method Time Signature Neutrophils % 91.5 % [facility] LABORATORY Neutr Abs (ANC) 15.78 (H) 1.70 - [facility] 6.10 [facility] x10(3)/[facility] L LABORATORY Lymphocytes % 2.9 % [facility] LABORATORY Lymphocytes Abs 0.5 (L) 0.9 - 3.2 [facility] x10(3)/[facility] LABORATORY Monocytes % 4.9 % [facility] LABORATORY Monocyte Abs 0.8 0.3 - 0.9 [facility] x10(3)/[facility] LABORATORY Eosinophils % 0.0 % [facility] LABORATORY Eosinophils Abs 0.0 0.0 - 0.4 [facility] x10(3)/[facility] LABORATORY Basophils % 0.2 % [facility] LABORATORY Basophils Abs 0.0 0.0 - 0.1 [facility] x10(3)/[facility] LABORATORY Immature Gran [...] Organization Address City/State/[place] [address] (ABNORMAL) Hemogram (12/09/2021 6:18 AM EDT) Analysis Performed At Patho logist Time Signature WBC 17.2 (H) 4.0 - 9.5 [facility] x10(3)/[facility] LABORATORY RBC 4.32 (L) 4.58 - [facility] 5.54 [facility] x10(6)/[facility] LABORATORY Hemoglobin 12.6 (L) 13.7 - [facility] 16.5 g/dL [facility] LABORATORY Hematocrit 38.9 (L) 40.5 - [facility] 48.5 % [facility] LABORATORY MCV 90.0 82.9 - [facility] 93.1 fL [facility] LABORATORY MCH 29.2 27.5 - [facility] 32.1 pg [facility] LABORATORY MCHC 32.4 32.0 - BARBARA DAVIS 35.7 g/dL [facility] LABORATORY Platelets 193 145 - 357 [facility] x[facility](3[facility] LABORATORY RDWSD 50.4 (H) 36.0 - [facility] RYAN 45.0 [facility] LABORATORY RDWCV 15.2 (H) 11.4 - [facility] RYAN 13.8 % [facility] LABORATORY MPV 9.5 7.6 - 12.9 [facility] LABORATORY nRBC % Auto 0.0 % [facility] LABORATORY nRBC Abs Auto 0.000 0.000 - [facility] RYAN 0.000 [facility] x10(3)/[facility] LABORATORY Specimen Anatomical Collection Method Collection Time Receive d Time (Source) Location / / Volume Laterality Blood 12/09/2021 6:18 AM 6:33 EDT AM EDT Resulting Agency Comment Spec In Lab Morgan BROWN HEMATOLOGY ORDERABLES Performing Organization Address City/State/[place] [address] Lipid Panel (Reflex Direct LDL) (12/09/2021 6:18 AM EDT) P athologist Signature Chol, Total 105 mg/dL [facility] LABORATORY Comment: Lower Risk: <200 mg/dL Average Risk: 200-239 mg/dL Higher Risk: >yl=919 mg/dL Triglycerides 133 mg/dL [facility] LABORATORY Comment: Average Risk/Lower Risk: <150 mg/dL Borderline High Risk: 150-199 mg/dL High Risk: 200-499 mg/dL Very High Risk: >ja=414 mg/dL HDL 42 mg/dL [facility] LABORATORY Comment: Males: ?? Higher Risk: <40 mg/dL Females: ?? Higher Risk: <50 mg/dL LDL Cholesterol 36 mg/dL [facility] LABORATORY Comment: Lowest Risk: <100 mg/dL Lower Risk: 100-129 mg/dL Borderline High Risk: 130-159 mg/dL High Risk: 160-189 mg/dL Very High Risk: >nm=675 mg/dL Chol/HDL Ratio 2.5 ratio [facility] LABORATORY Lipid Interpretation See Note [facility] Comment: Lipid management should be guided by a p atient? s ASCVD risk, goals and preferences. ACC/AHA Guidelines recommend high intens ity statin if clinical ASCVD or LDL greater than or equal to 190 mg/dL. [email or web address] Adults aged 40-75 with LDL 70-189 mg/dL should have their 10 year ASCVD risk estimated with the ACC/AHA ASCVD risk es timator http://tools.acc.org/GQSZW-Gith-Gyaxktth r/ Statin should be discussed if risk [...] Organization Address City/State/[place] [address] TSH (12/09/2021 6:18 AM EDT) athologist Signature TSH 1.60 0.27 - 4.20 [facility] mcIU/mL [facility] LABORATORY Comment: Reference Interval (mcIU/mL): Females: ??First Trimester: 0.23-3.88 ??Second Trimester: 0.22-3.90 ??Third Trimester: 0.44-4.66 Specimen Anatomical Collection Method Collection Time Receive d Time (Source) Location / / Volume Laterality Blood 12/09/2021 6:18 AM 2 6:33 EDT AM EDT Resulting Agency Comment Spec In Lab Iker Cuevas MD CHEMISTRY ORDERABLES Performing Organization Address City/State/[place] [address] Hepatic Function Panel (12/09/2021 6:18 AM EDT) athologist Signature Total Protein 7.3 6.1 - 8.0 [place] RYAN g/dL [facility] LABORATORY Albumin 4.2 3.2 - 5.2 [place] RYAN g/dL [facility] LABORATORY AST 25 0 - 39 [place] RYAN unit/L [facility] LABORATORY ALT 15 0 - 55 BARBAR[facility] RYAN unit/L [facility] LABORATORY Alk Phos 75 40 - 130 BAR[place] RYAN unit/L [facility] LABORATORY Total 1.1 0.2 - 1.3 [place] RYAN Bilirubin mg/dL [facility] LABORATORY Bili, Direct 0.2 0.0 - 0.3 [facility] RYAN mg/dL [facility] LABORATORY Specimen Anatomical Collection Method Collection Time Receive d Time (Source) Location / / Volume Laterality Blood 12/09/2021 6:18 AM 2 6:33 EDT AM EDT Resulting Agency Comment Spec In Lab Iker Cuevas MD CHEMISTRY ORDERABLES Performing Organization Address City/[facility]/ZIP Code Phon e Number [address] (ABNORMAL) BMP w/fasting Glucose (12/09/2021 6:18 AM EDT) athologist Signature Glucose 235 (H) 65 - 99 BAR[place] RYAN Fasting mg/dL [facility] LABORATORY Comment: ?Fasting* Glucose Interpretive C riteria [...] Organization Address City/State/Z[place] [address] [facility] [address] Magnesium (12/09/2021 6:18 AM EDT) athologist Signature Magnesium 0.81 0.69 - 1.07 [facility] mmol/L [facility] LABORATORY Specimen Anatomical Collection Method Collection Time Receive d Time (Source) Location / / Volume Laterality Blood 12/09/2021 6:18 AM 2 6:33 EDT AM EDT Resulting Agency Comment Spec In Lab Iker Cuevas MD CHEMISTRY ORDERABLES Performing Organization Address City/State/Z[place] [address] [facility] [address] Drive (ABNORMAL) Troponin (12/09/2021 6:18 AM EDT) athologist Signature Troponin-T 1.13 (H) 0.00 - BARBARA RYAN 0.00 ng/mL [facility] LABORATORY Comment: The 99th percentile for Troponin [...] additional sample may be indicated. Reference: [place] Definition of Myocardial Infarction. Journal of the [place] [employer] 2012;60:1581-98 Specimen Anatomical Collection Method Collection Time Receive d Time (Source) Location / / Volume Laterality Blood 12/09/2021 6:18 AM 2 6:33 EDT AM EDT Resulting Agency Comment Spec In Lab Iker Cuevas MD CHEMISTRY ORDERABLES Performing Organization Address City/State/ZIP Code Phon e Number [place] [id number] HOSP[address] XR Chest One View [...] Signature pH Art 7.43 7.[address] - [facility] 7.45 [facility] LABORATORY pCO2 Art 36 35 - 45 [facility] mmHg [facility] LABORATORY pO2 Art 67 (L) 85 - 104 [facility] mmHg [facility] LABORATORY HCO3 Art 23.4 20.0 - [facility] 26.0 [facility] mmol/L HOSPITAL LABORATORY BE Art -0.9 -3.0 - 3.0 [facility] mmol/L [facility] LABORATORY Hgb Blood Gas 13.2 (L) 13.7 - [facility] 16.5 g/dL [facility] LABORATORY O2HB Art 91.3 (L) 94.0 - [facility] 97.0 % [facility] LABORATORY COHB Art 0.4 % [facility] LABORATORY Comment: Nonsmokers: 0.5-1.5% COHB Smokers: Variable, but usually less than 10% Toxic: 20-30% COHB Lethal: Greater than 60% COHB METHB Art 0.4 <=1.5 % [facility] LABORATORY [...] [facility] LAB[facility] Gluc Whole Bld 223 (H) 65 - 199 mg/dL [facility] LABORATORY Comment: Diabetes: >=200 mg/dL plus symp toms. Lactate WB 2.7 (H) 0.5 - 2.2 mmol/L [facility] LABORATORY FIO2 Art 35 % [facility] LABORATORY Flow Art 8.0 LPM [facility] LABORATORY PF Ratio Art 191 [facility] LABORATORY Specimen Anatomical Collection Method Collection Time Receive d Time (Source) Location / / Volume Laterality Blood 12/09/2021 5:14 AM 2 5:14 EDT AM EDT Iker Cuevas MD CHEMISTRY ORDERABLES Performing Organization Address City/State/[place] [address] POCT Glucose (12/09/2021 4:46 AM EDT) P athologist Signature POC Glucose 198 65 - 199 [facility] mg/dL [facility] LABORATORY Comment: Supplemental ranges: <140 mg/dL before meals <180 mg/dL all other times of the day Specimen Anatomical Collection Method Collection Time Receive d Time (Source) Location / / Volume Laterality Blood 12/09/2021 4:46 AM 2 4:46 EDT AM EDT Iker Cuevas MD POINT OF CARE TEST ORDERABLE S Performing Organization Address City/State/[place] [address] (ABNORMAL) POCT Glucose (12/09/2021 3:01 AM EDT) athologist Signature POC Glucose 225 (H) 65 - 199 [facility] mg/dL [facility] LABORATORY Comment: Supplemental ranges: <140 mg/dL before meals <180 mg/dL all other times of the day Specimen Anatomical Collection Method Collection Time Receive d Time (Source) Location / / Volume Laterality Blood 12/09/2021 3:01 AM 3:01 EDT AM EDT Iker Cuevas MD POINT OF CARE TEST ORDERABLE S Performing Organization Address City/State/[place] [address] (ABNORMAL) POCT Glucose (12/08/2021 10:55 PM EDT) athologist Signature POC Glucose 327 (H) 65 - 199 [facility] mg/dL [facility] LABORATORY Comment: Supplemental ranges: <140 mg/dL before meals <180 mg/dL all other times of the day Specimen Anatomical Collection Method Collection Time Receive d Time (Source) Location / / Volume Laterality Blood 12/08/2021 10:55 12/08/2021 PM EDT 10:55 PM EDT Iker Cuevas MD POINT OF CARE TEST ORDERABLE S Performing Organization Address City/State/[place] [address] Heparin (unfractionated) Level (12/08/2021 10:03 PM EDT) athologist Signature Heparin UFH 0.18 IU/mL [facility] LABORATORY Comment: Heparin (anti-Xa) levels [...] Organization Address City/State/Z[place] [address] (ABNORMAL) Troponin (12/08/2021 10:03 PM EDT) athologist Signature Troponin-T 0.92 (H) 0.00 - [place] AR[place] 0.00 ng/mL [facility] LABORATORY Comment: The 99th percentile for Troponin [...] additional sample may be indicated. Reference: [place] Definition of Myocardial Infarction. Journal of the [place] [employer] 2012;60:1581-98 Specimen Anatomical Collection Method Collection Time Receive d Time (Source) Location / / Volume Laterality Blood 12/08/2021 10:03 12/08/2021 PM EDT 10:31 PM EDT Resulting Agency Comment Spec In Lab Iker Cuevas MD CHEMISTRY ORDERABLES Performing Organization Address City/[facility]/ZIP Code Phon e Number [address] (ABNORMAL) POCT Glucose (12/08/2021 8:22 PM EDT) P athologist Signature POC Glucose 429 (H) 65 - 199 [facility] mg/dL [facility] LABORATORY Comment: Supplemental ranges: <140 mg/dL before meals <180 mg/dL all other times of the day Specimen Anatomical Collection Method Collection Time Receive d Time (Source) Location / / Volume Laterality Blood 12/08/2021 8:22 PM 2 8:22 EDT PM EDT Iker Cuevas MD POINT OF CARE TEST ORDERABLE S Performing Organization Address City/[facility]/[place] [address] (ABNORMAL) POCT Glucose (12/08/2021 7:06 PM EDT) P athologist Signature POC Glucose 442 (H) 65 - 199 [facility] mg/dL [facility] LABORATORY Comment: Supplemental ranges: <140 mg/dL before meals <180 mg/dL all other times of the day Specimen Anatomical Collection Method Collection Time Receive d Time (Source) Location / / Volume Laterality Blood 12/08/2021 7:06 PM 2 7:06 EDT PM EDT Iker Cuevas MD POINT OF CARE TEST ORDERABLE S Performing Organization Address City/[facility]/ZIP Code Phon e Number [address] Magnesium (12/08/2021 6:02 PM EDT) P athologist Signature Magnesium 0.86 0.69 - 1.07 [facility]/L [facility] LABORATORY Specimen Anatomical Collection Method Collection Time Receive d Time (Source) Location / / Volume Laterality Blood 12/08/2021 6:02 PM 2 6:36 EDT PM EDT Resulting Agency Comment Spec In Lab Iker Cuevas MD CHEMISTRY ORDERABLES Performing Organization Address City/State/[place] [address] (ABNORMAL) Basic Metabolic Panel (non-fasting) (12/08/2021 6:02 PM EDT) P athologist Signature Glucose Lvl 392 (H) 65 - 199 [facility] mg/dL [facility] LABORATORY Comment: Diabetes: >=200 mg/dL plus symp [...] Organization Address City/State/[place] [address] (ABNORMAL) Differential, Automated (12/08/2021 6:02 PM EDT) [facility] gist Method Time Signature Neutrophils % 89.5 % [facility] LABORATORY Neutr Abs (ANC) 13.97 (H) 1.70 - [facility] 6.10 [facility] x10(3)/[facility] LABORATORY Lymphocytes % 3.7 % [facility] LABORATORY Lymphocytes Abs 0.6 (L) 0.9 - 3.2 [facility] x10(3)/[facility] LABORATORY Monocytes % 6.1 % [facility] LABORATORY Monocyte Abs 1.0 (H) 0.3 - 0.9 [facility] x10(3)/[facility] LABORATORY Eosinophils % 0.0 % [facility] LABOR[facility]ORY Eosinophils Abs 0.0 0.0 - 0.4 [facility] x10(3)/[facility] LABORATORY Basophils % 0.2 % [facility] LABORATORY Basophils Abs 0.0 0.0 - 0.1 [facility] x10(3)/[facility] LABORATORY Immature Gran [...] Organization Address City/State/[place] [address] (ABNORMAL) Hemogram (12/08/2021 6:02 PM EDT) Analysis Performed At Patho logist Time Signature WBC 15.6 (H) 4.0 - 9.5 [facility] x10(3[facility] LABORATORY RBC 4.05 (L) 4.58 - [facility] 5.54 [facility] x10(6)/[facility] LABORATORY Hemoglobin 11.8 (L) 13.7 - [facility] 16.5 g/dL [facility] LABORATORY Hematocrit 35.8 (L) 40.5 - [facility] 48.5 % [facility] LABORATORY MCV 88.4 82.9 - [facility] 93.1 [facility] LABORATORY MCH 29.1 27.5 - [place] [facility] 32.1 pg [facility] LABORATORY MCHC 33.0 32.0 - [facility] 35.7 g/dL [facility] LABORATORY Platelets 178 145 - 357 [facility] x10(3)/[facility] LABORATORY RDWSD 49.3 (H) 36.0 - [facility] 45.0 [facility] LABORATORY RDWCV 15.1 (H) 11.4 - [facility] 13.8 % [facility] LABORATORY MPV 10.4 7.6 - 12.9 [facility] nRBC % Auto 0.0 % [facility] LABORATORY nRBC Abs Auto 0.000 0.000 - [facility] 0.000 [facility] x10(3)/[facility] LABORATORY Specimen Anatomical Collection Method Collection Time Receive d Time (Source) Location / / Volume Laterality Blood 12/08/2021 6:02 PM 2 6:36 EDT PM EDT Resulting Agency Comment Spec In Lab Morgan BROWN HEMATOLOGY ORDERABLES Performing Organization Address City/State/ZIP Code Phon e Number [place] [phone] LAB[address]ORY Drive (ABNORMAL) Troponin (12/08/2021 6:02 PM EDT) P athologist Signature Troponin-T 0.89 (H) 0.00 - [place] DAV[place] 0.00 ng/mL [facility] LABORATORY Comment: The 99th percentile for Troponin [...] additional sample may be indicated. Reference: [place] Definition of Myocardial Infarction. Journal of the [place] College [employer]iology 2012;60:1581-98 Specimen Anatomical Collection Method Collection Time Receive d Time (Source) Location / / Volume Laterality Blood 12/08/2021 6:02 PM 2 6:36 EDT PM EDT Resulting Agency Comment Spec In Lab Iker Cuevas MD CHEMISTRY ORDERABLES Performing Organization Address City/State/ZIP Code Phon e Number [place] [phone]OS[address] LAB[address]ORY [address] COVID-19 PCR (12/08/2021 5:00 [...] using the Simplexa COVID-19 Direct Assay by Datamolinojoi marcum as authorized by the FDA issued [...] Department of Pathology and Laboratory Medicine at [facility], certified under the Clinical Laboratory Improvement [...] fact sheets at the following FDA website: https://www.fda.gov/medical-devices/xbhrcmxouik-rvihycv-3520-fbqwh-65-tuzetxnbm- baf-ojbfgsejdjyxvn-vwulubz-devices/wsarn-pcwnnwjexjm-ywse SARS-CoV-2 Source LETTER CARRIER Swab [facility] LABORATORY Specimen (Source) Anatomical Collection Method Collection Time Re ceived Time Location / / Volume Laterality Nasopharyngeal Swab 12/08/2021 5:00 12/08 PM EDT 6:03 PM EDT Comment: Symptoms->Surveillance Resulting Agency Comment Spec In Lab Iker Cuevas MD MICROBIOLOGY - GENERAL ORDER [place] Performing Organization Address City/State/[place] [address] EKG 12 Lead (12/08/2021 4:40 PM EDT) Component Value Ref Range Test Analysis Performed Pathologis t Method Time At Signature Ventricular rate 78 BPM MUSE SYSTEM Atrial Rate 78 BPM MUSE SYSTEM P-R Interval 152 ms MUSE SYSTEM QRS Duration 96 ms MUSE SYSTEM Q-T Interval 396 ms MUSE SYSTEM QTC Calculated 451 ms MUSE SYSTEM (Bezet) Calculated P Pierce 44 degrees MUSE SYSTEM Calculated R Pierce -31 degrees MUSE SYSTEM Calculated T Pierce 124 degrees MUSE SYSTEM INTERPRETATION Normal sinus [...] Glucose 400 (H) 65 - 199 [facility] mg/dL [facility] LABORATORY Comment: Supplemental ranges: <140 mg/dL before meals <180 mg/dL all other times of the day Specimen Anatomical Collection Method Collection Time Receive d Time (Source) Location / / Volume Laterality Blood 12/08/2021 4:34 PM 2 4:34 EDT PM EDT Iker Cuevas MD POINT OF CARE TEST ORDERABLE S Performing Organization Address City/State/[place] [address] documented in this encounter [...] type of vessel, [place] or graft Cardiomyopathy, ischemic Other specified forms [...] MEALS, First dose (after last modification) on [facility] 12/11/21 at 1730, Until Discontinued, MEAL ASSOCIATED Give 1 unit: 3 grams of carbohydrate Hold if not eating or if BG less than 70 mg/dL., Routine Given 12/11/2021 5:16 PM EDT 10 Units insulin lispro (HumaLOG;Admelog) (100 Given 12/09/2021 1:24 PM E DT 3 Units unit/mL) subcutaneous injection vial 0-8 Units 0-8 Units, Subcutaneous, 3 TIMES DAILY WITH MEALS, First dose on [facility] 12/08/21 at 1730, Until Discontinued, [...] 12 Units, Subcutaneous, ONCE, 1 dose, On 12/08/21 at 2130, Routine insulin lispro (HumaLOG;Admelog) Given 12/09/2021 6:54 PM EDT 15 Units Left Arm (100 unit/mL) subcutaneous injection vial 15 Units 15 Units, Subcutaneous, ONCE, 1 dose, On 12/09/21 at 1930, Routine insulin lispro (HumaLOG;Admelog) (100 [...] Derrick Galeas, VAMSI)0631 (Given - Provider: Derrick Galeas RN) 12.5 mg, Oral, EVERY 6 HOURS SCHEDULED, [...] - Reason: Transfer to a Procedural area)1230 ([facility] Unhold - Provider: Admin Adt)1746 (Given - [...] 12/12/2021 acetaminophen (Tylenol) tablet 650 mg 0805 ([facility] Hold - Provider: Admin Adt - Reason: Transfer to a Procedural area)1230 ([facility] Unhold - Provider: Admin Adt) 650 mg, Oral, EVERY 4 HOURS PRN, Startin g on Wed12/08/21 at 1639, Until Wed12/12/21 at 1312, Pain, Headaches, Maximum dose of acetaminophen is 4000 mg from all sources in 24 hours. When ordered for pain , acetaminophen should be given even whe n other ordered pain medications are indicated. , Routine bisacodyL (Dulcolax) suppository 10 mg 0805 ([facility] Hold - Provider: Admin Adt - Reason: Transfer to a Procedural area)1230 ([facility] Unhold - Provider: Admin Adt) 10 mg, [...] injection solution 1 mg( Linked Group 2) 08 (SEP Hold - Provider: Admin Adt [...] r epeat juice/soda, gel, dextrose or gluca amna once per episode. For persistent hypoglycemia, consider [...] (Intra-Procedure), Routine niCARdipine (Cardene) (100 mcg/mL) dilution ([employer] [facility] [facility] OFFICER) (CANCELED) 1030 (Given - Provider: Vitaliy Nobles [...] - Reason: Transfer to a Procedural area)1230 ([facility] Unhold - Provider: Admin Adt) 5-20 mL, [...] episode. & nbsp; For persistent hypoglycemia, con historical interpreter longer-acting treatment for the duration of the [...] documented in this encounter Care Teams Box Spring Maker Relationship Specialty Start Date End Date Lovely Vicente MD PCP - General 04/16/[address] [place] [address] [address] [place] [address] documented as of this encounter
--- OUTSIDE RECORDS SUMMARY | 2022-02-27 15:10 | XMS_ITS | Encounter Summary ---
:1945 Author Organization [facility] [place] [address] Care Team Providers Name Role Phone Lovely Vicente MD Primary Care Provider Encounter Details Date Type Department Care Team Description 11/29/2017 Hospital Encounter Vascular Lab at [facility] PAD (peripheral [facility], RVT artery [facility]) [place] [id number] Social History Tobacco Use Types Packs/Day Years [...] MD [facility] ER [address] [place], [place] [address] (Wo rk) 06/10/2022 Office Visit Dermatology Laura Scherer MD [facility] [address] [place], [place] [address] (Wo rk) documented as of this encounter Procedures Procedure Name Priority Date/Time Associated Diagnosis Comme nts ARTERIAL DUPLEX LEG Routine 11/29/2017 10:32 AM PAD (periphera l Results for this UNILA EDT artery disease) procedure ar e in the results section. documented in this encounter Results Arterial Duplex Leg, Unil (11/29/2017 10:32 AM EDT) Component Value Ref Test Analysis Performed At [facility] Range Method Time Signature VB Text Department: Vascular Surgery Lab VASCUBASE Report Patient: [id number] (DON HOANG) CPT: 71556 ICD10: I72.4;I73.9 Referring Physician: DANETTE MAXWELL ?? [...] unspecified documented in this encounter Care Teams Parimutuel Clerk Relationship Specialty Start Date End Date Lovely Vicente MD PCP - General 04/16/[address] [place] [address] documented as of this encounter
--- OUTSIDE RECORDS SUMMARY | 2022-02-27 15:10 | XMS_ITS | Encounter Summary ---
:1945 Author Organization [facility] [place] [address] Care Team Providers Name Role Phone Lovely Vicente MD Primary Care Provider Encounter Details Date Type Department Care Team Description 11/07/2019 TH Visit Cardiology at [facility] Danette Maxwell (arteriosclerotic heart disease); (TeleHealth) [facility] STACIE Gomes Cardiomyopathy, ischemic; Drive [facility] S/P CABG x 3; [place], [place] MARIA VICTORIA (obstructive sleep apnea) on CPAP [phone] CARDIOLOGY [phone] [place], [place] [address] Social History Tobacco Use Types [...] regurgitation present. 07/07/2019 - 07/21/2019 [employer] [place] The patient had a minimum heart rate [...] at last check 6. Post-op atrial fibrillation [id number] 7 (CHF, HTN, DM, vascular disease, thromboembolism) Amiodarone discontinued Continue coumadin INR managed by PCP 7. PAD 08/06/2017: Right 1st, 2nd, 3rd toe amputation 08/11/2017: Left??femoral arterial access, RLE??angiogram, Balloon angioplasty of R PT with Eleazar 2.5 x 80 10/25/2017: right popliteal-pedal bypass at [facility] Continue Coumadin 8. Hypothyrodism S/p thyroidectomy [...] Nobles MD [facility] [address] [place], [place] [address] (Wo rk) 06/10/2022 Office Visit Dermatology Laura Scherer MD [facility] DR [address] [place], [place] [address] (Wo rk) documented as of this encounter Visit Diagnoses Diagnosis ASHD (arteriosclerotic heart disease) Coronary atherosclerosis of unspecified type of vessel, [place] or graft Cardiomyopathy, ischemic Other specified forms of chronic ischemi c heart disease S/P CABG x 3 Postsurgical aortocoronary bypass status MARIA VICTORIA (obstructive sleep apnea) on CPAP Obstructive sleep apnea (adult) (pediatr ic) documented in this encounter Care Teams [employer]fg Assoc Relationship Specialty Start Date End Date Lovely Vicente MD PCP - General 04/16/[address] [place] [address] [address] [place] [address] documented as of this encounter
--- OUTSIDE RECORDS SUMMARY | 2022-02-27 15:10 | XMS_ITS | Encounter Summary ---
:1945 Author Organization [facility] Address [facility] [place] [address] Care Team Providers Name Role Phone Lovely Vicente MD Primary Care Provider Reason for Referral Diagnostic Test (Routine) - Closed Specialty Diagnoses / Procedures Referred By Contact Refer red To Contact Cardiology Diagnoses Chronic systolic heart failure Danette Maxwell APRN [facility] Non-Inv Card Lab Procedures Echocardiogram Transthoracic(Leb) [facility] [place] [address] [place] [address] Referral ID Status Reason Start Date Expiration Date Visits V isits Requested Authorized [id number] Closed Specialty 07/17/2019 09/14/2019 1 1 Service Requested Encounter Details Date Type Department Care Team Description 01/16/2019 Office Visit Cardiology at [facility] Danette Maxwell, Chronic systolic heart failu re; [facility] STACIE Cardiomyopathy, ischemic; Drive [facility] Hx of thyroid cancer; [place], [place] DR [address] (arteriosclerotic heart disease); [phone] CARDIOLOGY MARIA VICTORIA (obstructive sleep apnea) on CPAP [phone] [place], [place] [address] (Wo rk) Social History Tobacco Use Types [...] K+ 4.6 today 6. Post-op atrial fibrillation [id number] 7 (CHF, HTN, DM, vascular disease, thromboembolism) Amiodarone discontinued Continue coumadin INR managed by PCP. 2.1 today 7. PAD 08/06/2017: Right 1st, 2nd, 3rd toe amputation 08/11/2017: Left??femoral arterial access, RLE??angiogram, Balloon angioplasty of R PT with Eelazar 2.5 x 80 10/25/2017: right popliteal-pedal bypass [...] Nobles MD [facility] ER CARDIOLOGY [place], [place] [address] (Wo rk) 06/10/2022 Office Visit Dermatology Laura Scherer MD [facility] ER DR [address] [place]LOG[address] [place], [place] [address] (Wo rk) documented as of this encounter Results ECHOCARDIOGRAM COMPLETE W CONTRAST (07/28/2019 8:19 AM EST) athologist Signature EF 40 HEARTLAB SYSTEM Specimen (Source) Anatomical Location Collection Method / Collectio n Time Received Time / Laterality Volume 07/28/2019 Narrative HEARTLAB SYSTEM - 07/28/2019 8:38 AM EST Procedure: ?Transthoracic Echocardiogram Patient: ?NATALYA GREGORY Mccollum ? (Age): 1945(74y) Med Rec#: ? [id number] ?Sex: ?M ? Site Loc: ? [facility] ?Ht / Wt: ??172(cm)/81(kg) Pt. Loc: ?Echo Lab ?BSA: ?1.94 Study Date: ?? 07/28/2019 ?Pt. Type: Outpatient Tape: ? Referring: MARY ELLEN Reading: Ifeanyi Truong () Manager: Fadumo Flanagan RDCS, REGINA Diagnosis: *Chronic systolic [...] E-wave Vmax ?1 ?m/sec ? MV deceleration lsft327.5 ? msec ? MV A-wave Vmax ?1 [...] ? Mid-Inferior ?Hypokinetic ? Mid-Inferoseptal ?Normal ? [place]-Septal ? Normal ? [place]-Anterior ? Hypokinetic ? [place]-Lateral ?Normal ? [place]-Inferior ? Akinetic ? [place]-Tip ?Hypokinetic ? This report has been electronically sign ed by: _ Ifeanyi Truong M.D. ? 07/28/2019 0 8:38:01 Images reviewed and interpretation [facility] Procedure Note Ifeanyi Truong MD - 07/28/2019Formatt ing of this note might be different from the original. Procedure: Transthoracic Echocardiogram Patient: NATALYA MCBRIDE(Age): [birth year]74y) Med Rec#: [id number] Sex: M Site Loc: [facility] Ht / Wt: 172(cm)/81(kg) Pt. Loc: Echo Lab BSA: 1.94 Study Date: 07/28/2019 Pt. Type: Outpati ent Tape: Referring: MARY ELLEN Reading: Ifeanyi Truong ([id number]) Manager: Fadumo Flanagan RDCS, FASE Diagnosis: *Chronic systolic [...] MV E-wave Vmax 1 m/sec MV deceleration hrlu660.5 msec MV A-wave Vmax 1 m/sec MV [...] Normal Mid-Posterolateral Normal Mid-Inferior Hypokinetic Mid-Inferoseptal Normal [place]-Septal Normal [place]-Anterior Hypokinetic [place]-Lateral Normal [place]-Inferior Akinetic [place]-Tip Hypokinetic This report has been electronically sign ed by: _ Ifeanyi Truong M.D. 07/28/2019 08:38:0 1 Images reviewed and interpretation verif ied [facility] Cardiac Ultrasound Laboratory Danette Maxwell APRN ECHO ORDERABLES Performing Organization Address City/State/ZIP Code Phon e Number HEARTLAB SYSTEM (ABNORMAL) Basic Metabolic Panel (non-fasting) (01/16/2019 7:49 AM EDT) P athologist Signature Glucose Lvl 105 65 - 199 [facility] mg/dL [facility] LABORATORY Comment: Diabetes: >=200 mg/dL plus symp toms BUN 25 (H) 10 - 20 mg/dL [facility] LABORATORY Creatinine 1.08 0.80 - 1.50 mg/dL [facility] LABORATORY Sodium 145 135 - [...] 15 mmol/L [facility] Calcium 9.2 8.5 - 10.5 [...] of body mass or the acutely ill. [email or web address] eGFR 79 >=60 mL/min/1.73 m?? [facility] Comment: The eGFR was calculated using the CKD-EP I equation. As with all creatinine based estimates of kidney function, eGFR values calculated with the CKD-EPI equation are not accurate in patients wi th acute kidney failure, extremes of body mass or the acutely ill. [email or web address] Specimen Anatomical Collection Method Collection Time Receive d Time (Source) Location / / Volume Laterality Blood specimen 01/16/2019 7:49 AM 019 7:55 (specimen) EDT AM EDT Resulting Agency Comment Spec In Lab Danette Maxwell APRN CHEMISTRY ORDERABLES Performing Organization Address City/[facility]/[place] [address] (ABNORMAL) pro-Brain Natriuretic Peptide (01/16/2019 7:49 AM EDT) P athologist Signature ProBNP 780 (H) <=125 pg/mL [facility] LABOR[facility] Specimen Anatomical Collection Method Collection Time Receive d Time (Source) Location / / Volume Laterality Blood specimen 01/16/2019 7:49 AM 019 7:55 (specimen) EDT AM EDT Resulting Agency Comment Spec In Lab Danette Maxwell APRN CHEMISTRY ORDERABLES Performing Organization Address City/[facility]/[place] [address] documented in this encounter Visit Diagnoses Diagnosis Chronic systolic heart failure Cardiomyopathy, ischemic Other specified forms of chronic ischemi c heart disease Hx of thyroid cancer Personal history of malignant neoplasm o f thyroid ASHD (arteriosclerotic heart disease) Coronary atherosclerosis of unspecified type of vessel, [place] or graft MARIA VICTORIA (obstructive sleep apnea) on CPAP Obstructive sleep apnea (adult) (pediatr ic) Chronic systolic heart failure documented in this encounter Care Teams Rn Renal Relationship Specialty Start Date End Date Lovely Vicente MD PCP - General 04/16/[address] [place] [address] documented as of this encounter
--- OUTSIDE RECORDS SUMMARY | 2022-02-27 15:10 | XMS_ITS | Encounter Summary ---
:1945 Author Organization [facility] [place] [address] Care Team Providers Name Role Phone Lovely Vicente MD Primary Care Provider Encounter Details Date Type Department Care Team Description 02/19/2020 Telephone Dermatology at [facility] Ariana Wilder LPN [address] [place] [address] Social History Tobacco Use Types Packs/Day [...] Nobles MD [facility] CARDIOLOGY [place], [place] [address] (Wo rk) 06/10/2022 Office Visit Dermatology Laura Scherer MD [facility] [address] [facility] [place], [place] [address] (Wo rk) documented as of this encounter Visit Diagnoses Not on filedocumented in this encounter Care Teams Liquid Chlorine Operator Relationship Specialty Start Date End Date Lovely Vicente MD PCP - General 04/16/[address] [place] [address] documented as of this encounter
--- OUTSIDE RECORDS SUMMARY | 2022-02-27 15:10 | XMS_ITS | Encounter Summary ---
:1945 [place] [address] Care Team Providers Name Role Phone Lovely Vicente MD Primary Care Provider Encounter Details Date Type Department Care Team Description 08/15/2018 Laboratory Appointment Lab [address] [place] [address] Social History Tobacco Use Types Packs/Day [...] Vitaliy Nobles MD [facility] [address] [place], [place] [address] (Wo rk) 06/10/2022 Office Visit Dermatology Laura Scherer MD [facility] [address] [place], [place] [address] (Wo rk) documented as of this encounter Procedures Procedure Name Priority Date/Time Associated Diagnosis Comme nts PROTHROMBIN TIME Routine 08/15/2018 8:04 AM Resul ts for this EST procedure are i n the results section. documented in this encounter Results (ABNORMAL) Prothrombin Time (08/15/2018 8:04 AM EST) P athologist Signature PT 24.0 (H) 9.4 - 12.5 [facility] LABORATORY INR 2.1 [facility] Comment: An INR <2.0 [...] Organization Address City/State/[place] [address] documented in this encounter Visit Diagnoses Not on filedocumented in this encounter Care Teams Incident Handler Relationship Specialty Start Date End Date Lovely Vicente MD PCP - General 04/16/[address] [place] [address] documented as of this encounter
--- OUTSIDE RECORDS SUMMARY | 2022-02-27 15:10 | XMS_ITS | Encounter Summary ---
:1945 Author Organization [facility] [place] [address] Care Team Providers Name Role Phone Lovely Vicente MD Primary Care Provider Reason for Referral Diagnostic Test (Routine) - Specialty Diagnoses / Procedures Referred By Contact Refer red To Contact Cardiology Diagnoses Chronic systolic heart failure Danette Maxwell APRN [facility] Non-Inv Card Lab Procedures Echocardiogram Transthoracic(Leb) [facility] [address] [phone] [place] [address] Referral ID Status Reason Start Date Expiration Visits Visits Date Requested Authorized [id number] Specialty 08/15/2018 08/15/2018 1 1 Service Requested Reason for Visit Diagnostic Test (Routine) - Specialty Diagnoses / Procedures Referred By Contact Nawaf owen To Contact Cardiology Diagnoses Chronic systolic heart failure Danette Maxwell APRN [facility] Non-Inv Card Lab Procedures Echocardiogram Transthoracic(Leb) [facility] [place] [address] [place] [address] Referral ID Status Reason Start Date Expiration Visits Visits Date Requested Authorized [id number] Specialty 08/15/2018 08/15/2018 1 1 Service Requested Encounter Details Date Type Department Care Team Description 08/15/2018 Hospital Encounter Non-Invasive Danette Maxwell Chron ic systolic Cardiology Lab Barbara Gomes APRN heart failure [facility] [place] [address] [place] [phone] [address] (Work) [phone] Social History Tobacco Use Types Packs/Day Years [...] Nobles MD [facility] CARDIOLOGY [place], [place] [address] (Wo rk) 06/10/2022 Office Visit Dermatology Laura Scherer MD [facility] DR [address]-DERMAT OLOGY [place], [place] [address] (Wo rk) documented as [...] Mccollum ? (Age): 1945(73y) Med Rec#: ? [id number] ?Sex: ?M ? Site Loc: ? [facility] ?Ht / Wt: ??172(cm)/81(kg) Pt. Loc: ?Echo Lab ?BSA: ?1.94 Study Date: ?? 08/15/2018 ?Pt. Type: Outpatient Tape: ? Referring: MARY ELLEN Reading: Scott Ortega ([id number]) Hazardous Material Specialist: Laura Sargent Diagnosis: *Chronic systolic (congestive) heart [...] E-wave Vmax ?1.2 ?m/sec ? MV deceleration [id number] ? msec ? MV A-wave Vmax ?0.7 [...] ? Mid-Inferior ?Hypokinetic ? Mid-Inferoseptal ?Hypokinetic ? [place] Hero-Septal ? Akinetic ? [place]-Anterior ? Hypokinetic ? [place]-Lateral ?Akinetic ? [place]-Inferior ? Hypokinetic ? [place]-Tip ?Akinetic ? This report has been electronically sign ed by: _ Scott Ortega M.D. ? 08/15/2018 08:17:26 Images reviewed and interpretation elvie hwang [facility] Cardiac Ultrasound Laboratory Procedure Note Scott Ortega MD - 08/15/2018Format ting of this note might be different from the original. Procedure: Transthoracic Echocardiogram Patient: NATALYA MCBRIDE(Age): [birth year]73y) Med Rec#: [id number] Sex: M Site Loc: [facility] Ht / Wt: 172(cm)/81(kg) Pt. Loc: Echo Lab BSA: 1.94 Study Date: 08/15/2018 Pt. Type: Outpati ent Tape: Referring: MARY ELLEN Reading: Scott Ortega ([id number]) Hazardous Material Specialist: Laura Sargent Diagnosis: *Chronic systolic (congestive) heart [...] MV E-wave Vmax 1.2 m/sec MV deceleration [id number] msec MV A-wave Vmax 0.7 m/sec MV [...] Akinetic Mid-Posterolateral Akinetic Mid-Inferior Hypokinetic Mid-Inferoseptal Hypokinetic South Hero-Septal Akinetic [place] Hero-Anterior Hypokinetic [place] Hero-Lateral Akinetic [place] Hero-Inferior Hypokinetic [place] Hero-Tip Akinetic This report has been electronically sign ed by: _ Scott Ortega M.D. 08/15/2018 08:17: 26 Images reviewed and interpretation verif ied [facility] Cardiac Ultrasound Laboratory Danette Maxwell APRN [...] Routine documented in this encounter Care Teams Checking Clerk Relationship Specialty Start Date End Date Lovely Vicente MD PCP - General 04/16/15 [address] [place] [address] documented as of this encounter
--- OUTSIDE RECORDS SUMMARY | 2022-02-27 15:10 | XMS_ITS | Encounter Summary ---
:1945 Author Organization [facility] [place] [address] Care Team Providers Name Role Phone Lovely Vicente MD Primary Care Provider Encounter Details Date Type Department Care Team Description 03/20/2021 Ancillary Procedure Radiology Library [place] [address] [place] [address] [phone] Social History Tobacco Use Types Packs/Day Years [...] MD [facility] DR TADE[address] [place], [place] [address] (Wo rk) 06/10/2022 Office Visit Dermatology Laura Scherer MD [facility] DR TEJA GR-DERMAT OLOGY [place], [place] [address] (Wo rk) documented as of [...] Organization Address City/State/ZIP Code Phon e Number [place], [place] documented in this encounter Visit Diagnoses Not on filedocumented in this encounter Care Teams Pump Erector Helper Relationship Specialty Start Date End Date Lovely Vicente MD PCP - General 04/16/[address] [place] [address] documented as of this encounter
--- OUTSIDE RECORDS SUMMARY | 2022-02-27 15:10 | XMS_ITS | Encounter Summary ---
:1945 [place] [address] Care Team Providers Name Role Phone Lovely Vicente MD Primary Care Provider Encounter Details Date Type Department Care Team Description 11/29/2017 Hospital Encounter Radiology Library at Estefany Maxwell Pain [facility]ORDINATOR [facility] [place] [address] CARDIOLOGY [phone] [place], [place] [address] (Wo rk) Social History Tobacco [...] Vitaliy Nobles MD [facility] [address] [place], [place] [address] (Wo rk) 06/10/2022 Office Visit Dermatology Laura Scherer MD [facility] DR [address]DERMAT OLOGY [place], [place] [address] (Wo rk) documented as of [...] Time Received Time / Laterality Volume Narrative [facility][NOTE 2] - 12/28/2017 11:07 AM EDT This exam is for storage only and is aut o-finalizing. Danette Maxwell APRN IMMarc FILM LIBRARY ORDERABLES Performing Organization Address City/State/ZIP Code Phon e Number [place], [place] documented in this encounter Visit Diagnoses Diagnosis Pain Generalized pain documented in this encounter Care Teams Glass Forming Engineer Relationship Specialty Start Date End Date Lovely Vicente MD PCP - General 04/16/[address] [facility] [place] [address] documented as of this encounter
--- OUTSIDE RECORDS SUMMARY | 2022-02-27 15:10 | XMS_ITS | Encounter Summary ---
:1945 Author Organization [facility] [place] [address] Care Team Providers Name Role Phone Lovely Vicente MD Primary Care Provider Encounter Details Date Type Department Care Team Description 12/08/2021 External Results Non-Invasive Cardiology Lab Mar y None [facility] [place] [address] Social History Tobacco Use Types Packs/Day [...] MD [facility] [address] [place], [place] [address] (Wo rk) 06/10/2022 Office Visit Dermatology Laura Scherer MD [facility] DR TEJA GR-DERMAT [facility] [place], [place] [address] (Wo rk) documented as of [...] on filedocumented in this encounter Care Teams Nickel Operator Relationship Specialty Start Date End Date Lovely Vicente MD PCP - General 04/16/[address] [place] [address] documented as of this encounter
--- OUTSIDE RECORDS SUMMARY | 2022-02-27 15:10 | XMS_ITS | Encounter Summary ---
:1945 Author Organization [facility] [place] [address] Care Team Providers Name Role Phone Lovely Vicente MD Primary Care Provider Reason for Visit Reason Comments Establish Care Atrial Fibrillation Congestive Heart Failure Cardiomyopathy Encounter Details Date Type Department Care Team Description 09/06/2019 [facility] Ischemic [facility] Osvaldo STRANGE [address] [place], [place] CARDIOLOGY DEPT. [address] [place] [address] [phone] Social History Tobacco Use Types Packs/Day Years [...] today For any questions, call my office: [phone] To access your health care information, go to the web at: [email or web address] (you will need to register) For educational materials: [email or web address] Karel TRAMMELL.[facility], Clinical Cardiac Electrophysiology, [facility], [facility] A Healthy Heart: After Your Visit [...] least 2 servings of fish a week. [place], mackerel, mcfadden, sardines, and chunk light tuna [...] irregular heartbeat. After you call 911, the blow pit operator may tell you to chew 1 [...] more? Visit our health information library at [email or web address]. You can also view health information on [employer], your personal patient account. Log in or sign up today. Enter F075 in the search box to learn more about A Healthy Heart: After Your Visit. ?? [phone] [employer] documented in this encounter Progress Notes Karel Mcelroy MD - 09/06/2019 2:20 PM EST Images from the original note were not included. Section of Cardiology/Cardiac Electrophysiology [facility] Clinical Cardiac Electrophysiology Consult Patient ID Don Fatima 1945 [id number] Don Fatima is referred to the EP clinic by Danette Maxwell APRN PhD Chief Complaint Dyspnea on exertion Ischemic cardiomyopathy History This is a 74 y.o. male following up/being seen in clinic for evaluation for ongoing anticoagulation. He has a Rnuib1Ddps score of ~ 6-7. 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, can [...] on phone: None Gets together: None Attends alevism service: None Active member of club or [...] reviewed the ECG: sinus rhythm, 72 bpm, NJ 140 ms, QRS 100 ms, QT 400 [...] EP clinic KAREL MCELROY MD Cardiac Electrophysiology [facility] T: [phone] F: [phone] 35 minutes of this 40 minute encounter were spent in counselling, as described above Cc: MD Danette Cr APRN PhD Janett Espino DPM documented in this encounter Plan of Treatment Upcoming Encounters Date Type Specialty Care Team Description 03/26/2022 Office Visit Cardiology Vitaliy Nobles MD [facility] ER [address] [place], [place] [address] (Wo rk) 06/10/2022 Office Visit Dermatology Laura Scherer MD [facility] ER [address]-DERMAT OLOGY [place], [place] [address] (Wo rk) documented as of [...] 446 ms MUSE SYSTEM (Bezet) Calculated P Atkins 37 degrees MUSE SYSTEM Calculated R Atkins -23 degrees MUSE SYSTEM Calculated T Atkins 116 degrees MUSE SYSTEM INTERPRETATION Normal sinus rhythm MUSE SYSTEM Inferior infarct (cited on or before 25-JAN-2013) ST & T wave abnormality, consider anterolateral ischemia Abnormal ECG When compared with ECG of 19-AUG-2017 10:23, No significant change was found Confirmed by MD Castellon Daniel ([id number]) on 09/08/2019 10:22:4 7 AM Specimen Anatomical [...] disease documented in this encounter Care Teams Metal Control Coordinator Relationship Specialty Start Date End Date Lovely Vicente MD PCP - General 04/16/[address] [place] [address] documented as of this encounter
--- OUTSIDE RECORDS SUMMARY | 2022-02-27 15:10 | XMS_ITS | Encounter Summary ---
:1945 Author Organization [place] [address] Care Team Providers Name Role Phone Lovely Vicente MD Primary Care Provider Reason for Visit Reason Comments Follow-up Skin Check Encounter Details Date Type Department Care Team Description 01/06/2018 Office Visit Dermatology at Rigoberto Formantipmirna nevi; Abdelrahman HOOPER MD History of melanoma; [address] [facility] [place] [address] [facility] [place], [place] [address] Social History Tobacco Use Types [...] 03/26/2022 Office Visit Cardiology Vitaliy Nobles MD [facility] ER [address] TADEO [place], [place] [address] (Wo rk) 06/10/2022 Office Visit Dermatology Laura Scherer MD [facility] ER DR TEJA GR-DERMAT [facility] [place], [place] [address] (Wo rk) documented as of this encounter Visit Diagnoses Diagnosis Multiple nevi Benign neoplasm of skin, site unspecifie d History of melanoma Personal history of malignant melanoma o f skin Seborrheic keratosis Other seborrheic keratosis documented in this encounter Care Teams Property Management Intern Relationship Specialty Start Date End Date Lovely Vicente MD PCP - General 04/16/[address] [place] [address] documented as of this encounter
--- OUTSIDE RECORDS SUMMARY | 2022-02-27 15:10 | XMS_ITS | Encounter Summary ---
:1945 Author Organization [facility] [place] [address] Care Team Providers Name Role Phone Lovely Vicente MD Primary Care Provider Encounter Details Date Type Department Care Team Description 08/15/2018 Laboratory Lab 3L Barbara Chronic systoli c heart failure; Appointment [facility] ASCVD (ar teriosclerotic cardiovascular disease) [place] [phone] Social History Tobacco Use Types Packs/Day Years [...] MD [facility] ER [address] TADEO [place], [place] [address] (Wo rk) 06/10/2022 Office Visit Dermatology Laura Scherer MD [facility] ER DR TEJA GR-DERMAT OLOGY [place], [place] [address] (Wo rk) documented as [...] Signature Glucose Lvl 116 65 - 199 [facility] mg/dL [facility] Comment: Diabetes: >=200 mg/dL plus symp toms BUN 21 (H) 10 - 20 mg/dL [place] [facility] Calcium 9.0 8.5 - [...] of body mass or the acutely ill. http://[employer]/DHMCnkf eGFR 79 >=60 mL/min/1.73 m?? [facility] Comment: The eGFR was calculated using the CKD-EP I equation. As with all creatinine based estimates of kidney function, eGFR values calculated with the CKD-EPI equation are not accurate in patients wi th acute kidney failure, extremes of body mass or the acutely ill. http://[employer]/DHMCnkf Specimen Anatomical Collection Method Collection Time Receive d Time (Source) Location / / Volume Laterality Blood specimen 08/15/2018 8:04 AM 019 8:20 (specimen) EST AM EST Resulting Agency Comment Spec In Lab Danette A [place] STACIE CHEMISTRY ORDERABLES Performing Organization Address City/State/[place] [address] Lipid Panel (08/15/2018 8:04 AM EST) P athologist Signature Chol, Total 75 mg/dL [facility] Comment: Lower Risk: <200 mg/dL Average Risk: 200-239 mg/dL Higher Risk: >ib=380 mg/dL Triglycerides 185 mg/dL [facility] Comment: Average Risk/Lower Risk: <150 mg/dL Borderline High Risk: 150-199 mg/dL High Risk: 200-499 mg/dL Very High Risk: >ir=302 mg/dL HDL 32 mg/dL [facility] Comment: Males: ?? Higher Risk: <40 mg/dL Females: ?? HIgher Risk: <50 mg/dL LDL Cholesterol 6 mg/dL [facility] Comment: Lowest Risk: <100 mg/dL Lower Risk: 100-129 mg/dL Borderline High Risk: 130-159 mg/dL High Risk: 160-189 mg/dL Very High Risk: >eu=510 mg/dL Chol/HDL Ratio 2.3 ratio [facility] Lipid Interpretation See Note [facility] Comment: Lipid management should be guided by a p atient? s ASCVD risk, goals and preferences. ACC/AHA Guidelines recommend high intens ity statin if clinical ASCVD or LDL greater than or equal to 190 mg/dL. http://tinyurl.com/QOW-GYD-Laavvposv Adults aged 40-75 with LDL 70-189 mg/dL should have their 10 year ASCVD risk estimated with the ACC/AHA ASCVD risk es timator http://tools.acc.org/ZPHCN-Cgkn-Ojvipmyk r/ Statin should be discussed if risk [...] Agency Comment Spec In Lab Danette Maxwell AUDIO SPECIALIST CHEMISTRY ORDERABLES Performing Organization Address City/State/[place] [address] (ABNORMAL) pro-Brain Natriuretic Peptide (08/15/2018 8:04 AM EST) P athologist Signature ProBNP 1,797 (H) <=125 [facility] pg/mL [facility] Specimen Anatomical Collection Method Collection Time Receive d Time (Source) Location / / Volume Laterality Blood specimen 08/15/2018 8:04 AM 019 8:20 (specimen) EST AM EST Resulting Agency Comment Spec In Lab Danette Maxwell APRN CHEMISTRY ORDERABLES Performing Organization Address City/State/[place] [address] documented in this encounter Visit Diagnoses Diagnosis Chronic systolic heart failure ASCVD (arteriosclerotic cardiovascular d isease) Unspecified cardiovascular disease documented in this encounter Care Teams Slime Plant Operator Helper Relationship Specialty Start Date End Date Lovely Vicente MD PCP - General 04/16/[address] [place] [address] (work) documented as of this encounter
--- OUTSIDE RECORDS SUMMARY | 2022-02-27 15:10 | XMS_ITS | Encounter Summary ---
:1945 Author Organization [facility] [place] [address] Care Team Providers Name Role Phone Lovely Vicente MD Primary Care Provider Encounter Details Date Type Department Care Team Description 04/16/2021 Laboratory Appointment Lab 3L [facility] systolic [facility] [place] [phone] Social History Tobacco Use Types Packs/Day Years [...] MD [facility] DR TADEO [place], [place] [address] (Wo rk) 06/10/2022 Office Visit Dermatology Laura Scherer MD [facility] DR TEJA GR-DERMAT [place], [place] [address] (Wo rk) documented as of [...] Organization Address City/State/[place] [address] (ABNORMAL) Basic Metabolic Panel (non-fasting) (04/16/2021 9:58 AM EDT) athologist Signature Glucose Lvl 77 65 - 199 [facility] mg/dL [facility] Comment: Diabetes: >=200 mg/dL plus symp toms BUN 23 (H) 10 - 20 mg/dL [facility] Creatinine 1.26 0.80 - 1.50 mg/dL [facility] Sodium 140 135 - 145 mmol/L [facility] Potassium 5.2 (H) 3.5 - 5.0 mmol/L [facility] [...] mg/dL [facility] Estimated GFR 55 (L) >=60 [...] Organization Address City/State/[place] [address] documented in this encounter Visit Diagnoses Diagnosis Chronic systolic heart failure documented in this encounter Care Teams Medical Recruiter Relationship Specialty Start Date End Date Lovely Vicente MD PCP - General 04/16/[address] [place] [address] documented as of this encounter
--- OUTSIDE RECORDS SUMMARY | 2022-02-27 15:10 | XMS_ITS | Encounter Summary ---
:1945 Author Organization [facility] [place] [address] Care Team Providers Name Role Phone Lovely Vicente MD Primary Care Provider Encounter Details Date Type Department Care Team Description 12/07/2021 Telephone Cardiology Eddi Briceño Jr., [facility] [place] [address] [facility] [phone] CARDIOLOGY DEPT [place], [place] [address] (Wo rk) Social History Tobacco [...] [facility] Referring Provider: Marisela Dean, STORY ANALYST [address] [place] [address] Don Veda Kushal 76 y.o. w / [...] bpm, LAFB, poor R wave progression, septal OK, and lateral STD, overall no significantchange from [...] MD [facility] [address] T[address] [place], [place] [address] (Mikayla alcaraz) 06/10/2022 Office Visit Dermatology Laura Scherer MD [facility] [address] TEJA GR-DERMAT OGY [place], [place] [address] (Wo rk) documented as of this encounter Visit Diagnoses Not on filedocumented in this encounter Care Teams Sales Support Specialist Relationship Specialty Start Date End Date Lovely Vicente MD PCP - General 04/16/[address] [place] [address] documented as of this encounter
--- OUTSIDE RECORDS SUMMARY | 2022-02-27 15:10 | XMS_ITS | Encounter Summary ---
:1945 Author Organization [facility] Address [address] [place] [address] Care Team Providers Name Role Phone Lovely Vicente MD Primary Care Provider Reason for Referral Diagnostic Test (Routine) - Specialty Diagnoses / Procedures Referred By Contact Refer red To Contact Cardiology Diagnoses Chronic systolic heart failure Danette Maxwell APRN [facility] Non-Inv Card Lab Procedures Echocardiogram Transthoracic(Leb) [facility] [place] [address] [place] [address] Referral ID Status Reason Start Date Expiration Visits Visits Date Requested Authorized [id number] Specialty 08/15/2018 08/15/2018 1 1 Service Requested Encounter Details Date Type Department Care Team Description 04/18/2018 Office Visit Cardiology at [facility] Danette Maxwell Chronic systolic heart failu re; [facility] STACIE Gomes On amiodarone therapy; [facility] Ischemic cardiomyopathy; [place], [place] DR ONOFRE (arteriosclerotic cardiovascular d isease) [id number] CARDIOLOGY [phone] [place], [place] [address] Social History Tobacco Use Types Packs/Day Years [...] in this encounter Progress Notes Danette Maxwell, BATTER MIXER - 04/18/2018 10:40 AM EDT ID and [...] 10/25/2017: right popliteal-pedal bypass at [facility] ? Plan: 1. A review of [...] MD [facility] CARDIOLOGY [place], [place] [address] (Wo rk) 06/10/2022 Office Visit Dermatology Laura Scherer MD [facility] [address] [place] [address] (Wo rk) documented as of this encounter Results ECHOCARDIOGRAM COMPLETE W CONTRAST (08/15/2018 7:55 AM EST) P athologist Signature EF 35 HEARTLAB SYSTEM Specimen (Source) Anatomical Location Collection Method / Collectio n Time Received Time / Laterality Volume 08/15/2018 Narrative HEARTLAB SYSTEM - 08/15/2018 8:18 AM EST Procedure: ?Transthoracic Echocardiogram Patient: ?NATALYA Mccollum ? (Age): 1945(73y) Med Rec#: ? [id number] ?Sex: ?M ? Site Loc: ? [facility] ?Ht / Wt: ??172(cm)/81(kg) Pt. Loc: ?Echo Lab ?BSA: ?1.94 Study Date: ?? 08/15/2018 ?Pt. Type: Outpatient Tape: ? Referring: MARY ELLEN Reading: Scott Ortega ([id number]) Student Loan Counselor: Laura Sargent Diagnosis: *Chronic systolic (congestive) heart [...] E-wave Vmax ?1.2 ?m/sec ? MV deceleration srym762.4 ? msec ? MV A-wave Vmax ?0.7 [...] ? Mid-Inferior ?Hypokinetic ? Mid-Inferoseptal ?Hypokinetic ? [place]-Septal ? Akinetic ? [place]-Anterior ? Hypokinetic ? [place]-Lateral ?Akinetic ? [place]-Inferior ? Hypokinetic ? [place]-Tip ?Akinetic ? This report has been electronically sign ed by: _ Scott Ortega M.D. ? 08/15/2018 08:17:26 Images reviewed and interpretation elvie hwang [facility] Cardiac Ultrasound Laboratory Procedure Note Scott Ortega MD - 08/15/2018Format ting of this note might be different from the original. Procedure: Transthoracic Echocardiogram Patient: NATALYA MCBRIDE(Age): [birth year]73y) [facility] Rec#: [id number] Sex: M Site Loc: [facility] Ht / Wt: 172(cm)/81(kg) Pt. Loc: Echo Lab BSA: 1.94 Study Date: 08/15/2018 Pt. Type: Outpati ent Tape: Referring: MARY ELLEN Reading: Scott Ortega ([id number]) Student Loan Counselor: Laura Sargent Diagnosis: *Chronic systolic (congestive) heart [...] MV E-wave Vmax 1.2 m/sec MV deceleration qczw586.4 msec MV A-wave Vmax 0.7 m/sec MV [...] Akinetic Mid-Posterolateral [place] Mid-Inferior Hypokinetic Mid-Inferoseptal Hypokinetic [place]-Septal Akinetic [place]-Anterior Hypokinetic [place]-Lateral Akinetic [place]-Inferior Hypokinetic [place]-Tip Akinetic This report has been electronically sign ed by: _ Scott Ortega M.D. 08/15/2018 08:17: 26 Images reviewed and interpretation elvie ludwigd [facility] Cardiac Ultrasound Laboratory Danette Maxwell APRN ECHO ORDERABLES Performing Organization Address City/State/ZIP Code Phon e Number HEARTLAB SYSTEM (ABNORMAL) Basic Metabolic Panel (non-fasting) (04/18/2018 9:19 AM EDT) P athologist Signature Glucose Lvl 167 65 - 199 [facility] mg/dL [facility] Comment: Diabetes: >=200 mg/dL plus symp toms BUN 18 10 - 20 mg/dL [facility] Creatinine 1.19 0.80 - 1.50 mg/dL [facility] Sodium 147 (H) 135 - 145 mmol/L [facility] [...] 10.5 mg/dL [facility] Estimated GFR 61 >=60 mL/min/1.73 m?? [facility] Comment: The eGFR was calculated using the CKD-EP I equation. As with all creatinine based estimates of kidney function, eGFR values calculated with the CKD-EPI equation are not accurate in patients wi th acute kidney failure, extremes of body mass or the acutely ill. http://Vdopia/DHMCnkf eGFR 70 >=60 mL/min/1.73 m?? [facility] Comment: The eGFR was calculated using the CKD-EP I equation. As with all creatinine based estimates of kidney function, eGFR values calculated with the CKD-EPI equation are not accurate in patients wi th acute kidney failure, extremes of body mass or the acutely ill. http://Vdopia/DHMCnkf Specimen Anatomical Collection Method Collection Time Receive d Time (Source) Location / / Volume Laterality Blood specimen 04/18/2018 9:19 AM 018 9:34 (specimen) EDT AM EDT Resulting Agency Comment Spec In Lab Danette Eliseo [place] STACIE CHEMISTRY ORDERABLES Performing Organization Address City/State/ZIP Code Phon e Number [address] (ABNORMAL) pro-Brain Natriuretic Peptide (04/18/2018 9:19 AM EDT) P athologist Signature ProBNP 2,199 (H) <=125 [facility] Specimen Anatomical Collection Method Collection Time Receive d Time (Source) Location / / Volume Laterality Blood specimen 04/18/2018 9:19 AM 018 9:34 (specimen) EDT AM EDT Resulting Agency Comment Spec In Lab Danette Eliseo Hans [place] CHEMISTRY ORDERABLES Performing Organization Address City/[facility]/ZIP [place] [address] documented in this encounter Visit Diagnoses Diagnosis Chronic systolic heart failure On amiodarone therapy Ischemic cardiomyopathy Other specified forms of chronic ischemi c heart disease ASCVD (arteriosclerotic cardiovascular d isease) Unspecified cardiovascular disease Chronic systolic heart failure documented in this encounter Care Teams Guest Specialist Relationship Specialty Start Date End Date Lovely Vicenet MD PCP - General 04/16/[address] [place] [address] documented as of this encounter
--- OUTSIDE RECORDS SUMMARY | 2022-02-27 15:10 | XMS_ITS | Encounter Summary ---
:1945 Author Organization [facility] [place] [address] Care Team Providers Name Role Phone Lovely Vicente MD Primary Care Provider Encounter Details Date Type Department Care Team Description 07/28/2019 Laboratory Appointment Lab 3L [facility] systolic [facility] [place] [id number] Social History Tobacco Use Types Packs/Day Years [...] MD [facility] [address] [place], [place] [address] (Wo rk) 06/10/2022 Office Visit Dermatology Laura Scherer MD [facility] DR [address] [place], [place] [address] (Wo rk) documented as of [...] athologist Signature ProBNP 647 (H) <=125 pg/mL [facility] Specimen Anatomical Collection Method Collection Time Receive d Time (Source) Location / / Volume Laterality Blood specimen 07/28/2019 8:36 AM 020 8:46 (specimen) EST AM EST Resulting Agency Comment Spec In Lab Danette Maxwell APRN CHEMISTRY ORDERABLES Performing Organization Address City/State/[place] [address] (ABNORMAL) Basic Metabolic Panel (non-fasting) (07/28/2019 8:36 AM EST) athologist Signature Glucose Lvl 153 65 - 199 [facility] mg/dL [facility] Comment: Diabetes: >=200 mg/dL plus symp toms BUN 22 (H) 10 - 20 mg/dL [facility] Creatinine 1.05 0.80 - 1.50 mg/dL [facility] [...] [facility] Estimated GFR 70 >=60 mL/min/1.73 m?? [facility] Comment: The eGFR was calculated using the CKD-EP I equation. As with all creatinine based estimates of kidney function, eGFR values calculated with the CKD-EPI equation are not accurate in patients wi th acute kidney failure, extremes of body mass or the acutely ill. http://Schoolwires/[facility]ARK[facility] eGFR 81 >=60 mL/min/1.73 m?? [facility] Comment: The eGFR was calculated using the CKD-EP I equation. As with all creatinine based estimates of kidney function, eGFR values calculated with the CKD-EPI equation are not accurate in patients wi th acute kidney failure, extremes of body mass or the acutely ill. http://Schoolwires/[facility]ARKOnkf Specimen Anatomical Collection Method Collection Time Receive d Time (Source) Location / / Volume Laterality Blood specimen 07/28/2019 8:36 AM 020 8:46 (specimen) EST AM EST Resulting Agency Comment Spec In Lab Danette Maxwell APRN CHEMISTRY ORDERABLES Performing Organization Address City/State/ZIP Code Phon e Number [place] [phone] documented in this encounter Visit Diagnoses Diagnosis Chronic systolic heart failure documented in this encounter Care Teams Counterintelligence Agent Relationship Specialty Start Date End Date Lovely Vicente MD PCP - General 04/16/[address] [place] [address] documented as of this encounter
--- OUTSIDE RECORDS SUMMARY | 2022-02-27 15:10 | XMS_ITS | Encounter Summary ---
:1945 Author Organization [facility] [place] [address] Care Team Providers Name Role Phone Lovely Vicente MD Primary Care Provider Encounter Details Date Type Department Care Team Description 03/20/2021 Ancillary Procedure Radiology Library [place] [address] [place] [address] [phone] Social History Tobacco Use Types Packs/Day Years [...] MD [facility] [address] [place], [place] [address] (Wo rk) 06/10/2022 Office Visit Dermatology Laura Scherer MD [facility] [address] [place], [place] [address] (Wo rk) documented as of [...] Organization Address City/State/ZIP Code Phon e Number [place], [place] documented in this encounter Visit Diagnoses Not on filedocumented in this encounter Care Teams Senior Talent Management Consultant Relationship Specialty Start Date End Date Lovely Vicente MD PCP - General 04/16/[address] [place] [address] documented as of this encounter
--- OUTSIDE RECORDS SUMMARY | 2022-02-27 15:10 | XMS_ITS | Encounter Summary ---
:1945 Author Organization [facility] [place] [address] Care Team Providers Name Role Phone Lovely Vicente MD Primary Care Provider Encounter Details Date Type Department Care Team Description 12/07/2021 External Results [place] [address] Social History Tobacco Use Types Packs/Day [...] MD [facility] [address] [place], [place] [address] (Wo rk) 06/10/2022 Office Visit Dermatology Laura Scherer MD [facility] [address] [place], [place] [address] (Wo rk) documented as of [...] on filedocumented in this encounter Care Teams Pin Game Machine Inspector Relationship Specialty Start Date End Date Lovely Vicente MD PCP - General 04/16/[address] [place] [address] documented as of this encounter
--- OUTSIDE RECORDS SUMMARY | 2022-02-27 15:10 | XMS_ITS | Encounter Summary ---
:1945 Author Organization [facility] [place] [address] Care Team Providers Name Role Phone Lovely Vicente MD Primary Care Provider Encounter Details Date Type Department Care Team Description 01/16/2019 Laboratory Appointment Lab 3L [facility] systolic [facility] [place] [phone] Social History Tobacco Use Types Packs/Day Years [...] Vitaliy Nobles MD [facility] [address] [place], [place] [address] (Wo rk) 06/10/2022 Office Visit Dermatology Laura Scherer MD [facility] DR [address] [place], [place] [address] (Wo rk) documented as of [...] athologist Signature ProBNP 780 (H) <=125 pg/mL [facility] Specimen Anatomical Collection Method Collection Time Receive d Time (Source) Location / / Volume Laterality Blood specimen 01/16/2019 7:49 AM 019 7:55 (specimen) EDT AM EDT Resulting Agency Comment Spec In Lab Danette Maxwell APRN CHEMISTRY ORDERABLES Performing Organization Address City/State/[place] [address] (ABNORMAL) Basic Metabolic Panel (non-fasting) (01/16/2019 7:49 AM EDT) athologist Signature Glucose Lvl 105 65 - 199 [facility] mg/dL [facility] Comment: Diabetes: >=200 mg/dL plus symp toms BUN 25 (H) 10 - 20 mg/dL [facility] Creatinine 1.08 0.80 - 1.50 mg/dL [facility] Sodium 145 135 - 145 mmol/L [facility] [...] estions. Chloride 106 98 - 107 mmol/L [facility] CO2 26 22 - 31 mmol/L [facility] Anion Gap 13 5 - 15 mmol/L [facility] Calcium 9.2 8.5 - 10.5 mg/dL [facility] Estimated GFR 68 >=60 mL/min/1.73 m?? [facility] Comment: The eGFR was calculated using the CKD-EP I equation. As with all creatinine based estimates of kidney function, eGFR values calculated with the CKD-EPI equation are not accurate in patients wi th acute kidney failure, extremes of body mass or the acutely ill. http://Pharmalink/[facility] – MOOREnkf eGFR 79 >=60 mL/min/1.73 m?? [facility] Comment: The eGFR was calculated using the CKD-EP I equation. As with all creatinine based estimates of kidney function, eGFR values calculated with the CKD-EPI equation are not accurate in patients wi th acute kidney failure, extremes of body mass or the acutely ill. http://Pharmalink/[facility] MOOREnkf Specimen Anatomical Collection Method Collection Time Receive d Time (Source) Location / / Volume Laterality Blood specimen 01/16/2019 7:49 AM 019 7:55 (specimen) EDT AM EDT Resulting Agency Comment Spec In Lab Danette Maxwell APRN CHEMISTRY ORDERABLES Performing Organization Address City/State/[place] [address] documented in this encounter Visit Diagnoses Diagnosis Chronic systolic heart failure documented in this encounter Care Teams Welder/Fitter Relationship Specialty Start Date End Date Lovely Vicente MD PCP - General 04/16/[address] [place] [address] documented as of this encounter
--- OUTSIDE RECORDS SUMMARY | 2022-02-27 15:10 | XMS_ITS | Encounter Summary ---
:1945 Author Organization [facility] [place] [address] Care Team Providers Name Role Phone Lovely Vicente MD Primary Care Provider Encounter Details Date Type Department Care Team Description 08/26/2018 Transcribe Orders Laboratory Lovely Vicente, Deferred diagnosis [facility] on axis I [address] [address] [place], [place] [phone] [address] Social History Tobacco Use Types Packs/Day Years [...] Vitaliy Nobles MD [facility] ER [address] [place], [place] [address] (Wo rk) 06/10/2022 Office Visit Dermatology Laura Scherer MD [facility] [address] [place], [place] [address] (Wo rk) documented as of this encounter Visit Diagnoses Diagnosis Deferred diagnosis on axis I Other unknown and unspecified cause of m orbidity or mortality documented in this encounter Care Teams Appliances Sample Maker Relationship Specialty Start Date End Date Lovely Vicente MD PCP - General 04/16/15 [address] [place] [address] documented as of this encounter
--- OUTSIDE RECORDS SUMMARY | 2022-02-27 15:10 | XMS_ITS | Encounter Summary ---
:1945 [place] [address] Care Team Providers Name Role Phone Lovely Vicente MD Primary Care Provider Encounter Details Date Type Department Care Team Description 04/16/2021 Office Visit Cardiology at [facility] Liz Poole, Chronic systolic heart [facility] [place] [address] Cardiology Dept [phone] [place], [place] [address] Social History Tobacco Use Types [...] was feeling good. 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 Post-op atrial fibrillation [id number] (CHF, HTN, DM, vascular disease, thromboembolism) [...] Nobles MD [facility] CARDIOLOGY [place], [place] [address] (Wo rk) 06/10/2022 Office Visit Dermatology Laura Scherer MD [facility] [address] [place], [place] [address] (Wo rk) documented as of this encounter Results (ABNORMAL) Basic Metabolic Panel (non-fasting) (04/16/2021 9:58 AM EDT) athologist Signature Glucose Lvl 77 65 - 199 [facility] mg/dL [facility] Comment: Diabetes: >=200 mg/dL plus symp toms BUN 23 (H) 10 - 20 mg/dL [facility] Creatinine 1.26 0.80 - 1.50 mg/dL [facility] Sodium 140 135 - 145 mmol/L [facility] Potassium 5.2 (H) 3.5 - 5.0 mmol/L [facility] [...] Anion Gap 9 5 - 15 mmol/L [facility] Calcium 9.3 8.5 - 10.5 mg/dL [facility] Estimated GFR 55 (L) >=60 [...] Organization Address City/State/[place] [address] (ABNORMAL) pro-Brain Natriuretic Peptide [...] Organization Address City/State/[place] [address] documented in this encounter Visit Diagnoses Diagnosis Chronic systolic heart failure documented in this encounter Care Teams Fabrication Engineer Relationship Specialty Start Date End Date Lovely Vicente MD PCP - General 04/16/[address] [place] [address] documented as of this encounter
--- OUTSIDE RECORDS SUMMARY | 2022-02-27 15:10 | XMS_ITS | Encounter Summary ---
:1945 Author Organization [facility] [place] [address] Care Team Providers Name Role Phone Lovely Vicente MD Primary Care Provider Reason for Visit Auth/Cert Specialty Diagnoses / Procedures Referred By Contact Refer red To Contact Diagnoses NSTEMI Procedures emerg ipi Referral ID Status Reason Start Date Expiration Date Visits Requ ested Visits Authorized [id number] 1 1 Encounter Details Date Type Department Care Team Description 12/10/2021 Surgery Rubber Factory Worker Asa Coulter MD CARDIAC CATHETERIZATION [facility] [place] [address] [place] [address] [phone] (Wo rk) Social History Tobacco Use Types [...] Don Fatima Patient Age: 76 y.o. Language: St Helenian Race: White Ethnicity: [...] Peter PA-C Kelly LaFlamme PA-C Cardiovascular Medicine [phone] Discharge Diagnoses (Hospital Problems) and Secondary Diagnoses [...] a 3.5 Fr [employer] [place] [employer] Pilot Station 20 Mhz using Manual pullback. Imaging was successful. Image quality was good. The ostial LCX showed moderate diffuse atherosclerotic plaque with scattered three quadrant calcification. Measurements were performed after pre-dilation. Post Intervention: The stent was well expanded and apposed. Intravascular Ultrasound was performed in the distal LM using a 7 Fr EBU 3.75 guiding catheter and a 3.5 Fr [employer] [place] Pilot Station 20 Mhz using Manual pullback. Imaging was successful. Image quality was good. The distal LM showed moderate diffuse atherosclerotic plaque. Post Intervention: The stent was well expanded and apposed. Indication for Intervention: Coronary intervention was indicated for primary therapy for an acute myocardial infarction. The priority for the procedure was Urgent. The [facility] indication for the procedure was NSTE-ACS. [...] may require modification of this regimen. Consult [facility] Interventional Cardiology for [...] vascular congestion and cardiomegaly. ?? TTE from [facility] 12/08/21 ? Prior Cardiac Studies: TTE [...] prior thyroidectomy in 2012 who presented to [facility] with 1 week progressing breathlessness with [...] 03/2021 with Liz Poole PA-C. ?? At [facility], respiratory distress with hypoxia 86% on [...] and diet drinks did not cause his AL. This is what his thought was the [...] appointments: During 8am-5pm Wednesday through Wednesday call [phone] to speak with a nurse in the cardiology clinic All other times call [phone] and ask to speak to the tube machine operator certified lactation counselor. Return to work: One week Driving: No driving for 48 hours after catheterization. Follow up Appointments: PCP Lovely Vicente MD [phone] to see patient at the end of December for annual check up. Patient to see Dr. Lorenzana at 1120 am at December 19 for a post hospital check up. Kitchen Help Handyman Dr. De Oliveira to see you in [facility]. Left a message for office to set a date and time. Please call [phone] Nobles to see the patient for a same day cath in 2-3 weeks from now. Office to call with a date and time. For questions please call [phone] Home oxygen therapy: N/A Arrangements for VNA/home care: none Future Appointments and Orders Future Orders Complete By Expires Basic Metabolic Panel (non-fasting) [LAB15 Custom] 12/19/2021 (Approximate) 12/12/2022 Process Instructions: INCLUDES: Calcium, BUN, Creat, GFR, Glucose, Lytes Scheduling Instructions: Comments: Questions: Referral to Cardiac Rehab [[id number] Custom] As directed Process Instructions: If no [...] appointments: During 8am-5pm Wednesday through Wednesday call [phone] to speak with a nurse in the cardiology clinic All other times call [phone] and ask to speak to the tube machine operator certified lactation counselor. Return to work: One week Driving: No driving for 48 hours after catheterization. Follow up Appointments: PCP Lovely Vicente MD [phone] to see patient at the end of December for annual check up. Patient to see Dr. Lorenzana at 1120 am at December 19 for a post hospital check up. Kitchen Help Handyman Dr. De Oliveira to see you in [facility]. Left a message for office to set a date and time. Please call [phone] Nobles to see the patient for a same day cath in 2-3 weeks from now. Office to call with a date and time. For questions please call [phone] Home oxygen therapy: N/A Arrangements for VNA/home [...] Progress Note Patient Name: Don Fatima Service: HIDE SHAKER / PA Responsible Attending: Ifeanyi Truong MD [...] was given Lasix 80mg IV x1 in sawyer cork slabs. Tolerated procedure well. Home today at 11 [...] Affect: Mood normal. Lab Comments: Recent Labs 12/12/2145012/11/2142712/10/21 042 WBC 7.9 8.8 9.4 HGB 12.1* 11.9* 11.1* HCT 36.7* 36.9* 34.0* PLATELET 231 211 183 Recent Labs 12/12/21450 INR 1.3 Recent Labs 12/12/21 04512/11/218 12/10/21 1945 12/10/211811 NA 143 142 -- 138 K 3.9 4.0 4.2 Not Perf CL 105 104 -- 100 CO2 21* 23 -- 22 BUN 52* 49* -- 50* CREATININE 1.72* 1.43 -- 1.39 Recent Labs 12/09/21 0618 AST 25 ALT 15 ALKPHOS 75 BILITOT 1.1 BILIDIR 0.2 Recent Labs 12/12/2145012/11/218 12/10/21 1812 12/10/21 0425 CALCIUM 8.9 8.6 8.3* 8.0* MAGNESIUM 1.02 1.04 -- 0.95 Recent Labs 12/09/21 0618 12/08/21 2203 12/08/21 1802 TROPONINT 1.13* 0.92* 0.89* Pertinent Radiographic/Diagnostic Results: R/[facility] 12/10/21 Hemodynamics: Right Heart [...] pulmonary vascular congestion and cardiomegaly. TTE from [facility] 12/08/21 Prior Cardiac Studies: TTE 07/28/2019 [...] 5 Mg HAYS/T/W/F/SA and 7.5 mg M/TH. [place] check DOAC, consider transition to DOAC [...] with MD Janneth Neville PA 12/12/2021 Pager [phone] Associated attestation - Ifeanyi Truong MD - [...] beat SVT w/sustained AIVR, resolved on own. NADINE Coelho MD notified. See flowsheets for I&O. Call [...] ratio for each meal) Desirae Jett APRN [facility] Endocrinology Diabetes Management Pager [phone] 20 minutes of this 35 minute visit [...] Progress Note Patient Name: Don Fatima Service: HIDE SHAKER / PA Responsible Attending: Iker Cuevas MD [...] + trop. Known CAD with hx of AL and CABG. DM. MARIA VICTORIA.ICM. ??? ASHD [...] was given Lasix 80mg IV x1 in sawyer cork slabs. Tolerated procedure well. Review of Systems: Review [...] Intake/Output Summary (Last 24 hours) at 12/11/2021 0970 Last data filed at 12/11/2021 0508 Gross [...] 12/11/21427 INR 1.6 Recent Labs 12/11/2142712/10/21 1945 12/10/21 1812 12/10/21424 NA 142 -- 138 140 K 4.0 4.2 Not Perf 3.9 CL 104 -- 100 104 CO2 23 -- 22 23 BUN 49* -- 50* 54* CREATININE 1.43 -- 1.39 1.52* Recent Labs 12/09/21617 AST 25 ALT 15 ALKPHOS 75 BILITOT 1.1 BILIDIR 0.2 Recent Labs 12/11/2142722 1812 12/10/21 0425 12/09/21 1930 12/09/21 0618 CALCIUM 8.6 [...] the saphenous vein graft to the Diagonal 1OM1 * Moderate pulmonary hypertension * Elevated pulmonary [...] pulmonary vascular congestion and cardiomegaly. TTE from [facility] 12/08/21 Prior Cardiac Studies: TTE 07/28/2019 [...] further IV methylprednisolone at this time. #MARIA VCITORIA On CPAP at home but does not [...] and answered his questions. Iker Cuevas MD [facility] Total time spent on review of records prior to visit, face to face time with patient during visit, documentation, and coordination of care with other clinicians: 25 minutes. . Iker Cuevas MD - 12/10/2021 12:30 PM EDT Images from the original note were not included. Inpatient Cardiology Progress Note Patient Name: Don Fatima Service: HIDE SHAKER / PA Responsible Attending: Iker Cuevas MD Reason for continued hospitalization: NSTEMI- s/p R/LHC- PCW 27, occluded SVGs s/p PCI to ostial LCX ADHF and hypoxia- IV diuresis Active Problems: Active Hospital Problems Diagnosis ??? Admitted with 2 days of sob, hypoxemia, and + trop. Known CAD with hx of AL and CABG. DM. MARIA VICTORIA.ICM. ??? ASHD [...] was given Lasix 80mg IV x1 in sawyer cork slabs. Tolerated procedure well. Review of Systems: Review [...] 49* CREATININE 1.52* 1.75* 1.33 Recent Labs 12/09/21617 AST 25 ALT 15 ALKPHOS 75 BILITOT 1.1 BILIDIR 0.2 Recent Labs 12/10/2142412/09/21192912/09/2161712/08/21 1802 CALCIUM 8.0* 8.1* 8.8 8.6 MAGNESIUM [...] pulmonary vascular congestion and cardiomegaly. TTE from [facility] 12/08/21 Prior Cardiac Studies: TTE 07/28/2019 [...] Discussed with MD Migdalia Peter PA-C Pager #[phone] 12/10/2021 Cardiology Attending Note I have seen [...] updated and given pictures. Iker Cuevas MD [facility] Total time spent on review of records prior to visit, face to face time with patient during visit, documentation, and coordination of care with other clinicians: 35 minutes. Iker Cuevas MD - 12/09/2021 7:28 AM EDT Images from the original note were not included. Inpatient Cardiology Progress Note Patient Name: Don Fatima Service: HIDE SHAKER / PA Responsible Attending: Iker Cuevas MD Reason for continued hospitalization: NSTEMI- awaiting R/LHC ADHF and hypoxia- IV diuresis, R/LHC Active Problems: Active Hospital Problems Diagnosis ??? Admitted with 2 days of sob, hypoxemia, and + trop. Known CAD with hx of AL and CABG. DM. MARIA VICTORIA.ICM. ??? ASHD [...] pulmonary vascular congestion and cardiomegaly. TTE from [facility] 12/08/21 Prior Cardiac Studies: TTE 07/28/2019 [...] Discussed with MD Migdalia Peter PA-C Pager #[phone] 12/09/2021 Cardiology Attending Note I have seen and examined the patient. I agree with the findings above. Developed CHF early this am despite getting more iv lasix last evening. Feeling better now. INR > 2. Lungs still wet at base. Echo at [facility] showed EF 35% with mild mod MR slightly lower than last value here. -vit K 2.5 orally to facilitate correction of INR- this will take 12-24 hours to take effect -furosemide 80 mg iv now -postpone right and left heart cath until tomorrow given INR and ADHF -increase statin to achieve LDL < 70 -CPAP tonight Iker Cuevas MD [facility] Total time spent on review of [...] + trop. Known CAD with hx of AL and CABG. DM. MARIA VICTORIA.ICM. ??? ASHD [...] prior thyroidectomy in 2012 who presented to [facility] with 1 week progressing breathlessness with [...] visit 03/2021 with Liz Poole PA-C. At [facility], respiratory distress with hypoxia 86% on [...] SETUP performed by Manny Mcknight MD at [facility] MAIN OR ??? PRO AMPUTATION FOOT, TRANSMETATARSAL Right 08/09/2017 AMPUTATION, TRANSMETATARSAL (WRVU 12.71) performed by Yonathan Smith MD at [facility] MAIN OR ??? PRO CABG, ARTERIAL, SINGLE N/A 07/07/2017 @CABG, USING ARTERIAL GRAFT;SINGLE ARTERIAL GRAFT (WRVU 33.75) performed by Yuan Retana MD at [facility] MAIN OR ??? PRO CABG, ARTERY-VEIN, TWO N/A 07/07/2017 @CABG, TWO VENOUS GRAFTS & ARTERIAL GRAFT (WRVU 7.93) performed by Yuan Retana MD at [facility] MAIN OR ??? PRO COLONOSCOPY, REMV LESN, SNARE 01/16/2014 COLONOSCOPY, POLYPECTOMY, REMOVAL LESION BY SNARE performed by Nohemi Jaimes MD at [facility] ENDOSCOPY ??? PRO DRESSING CHANGE UNDER ANESTHESIA Right 08/11/2017 (MSURG) DRESSING CHANGE (FOR OTHER THAN IVAN) UNDER ANES. (WRVU 0.86) performed by Lamar Smith MD at [facility] MAIN OR ??? PRO ENDOSCOPY W/VIDEO-ASST VEIN HARVEST, CABG Right 07/07/2017 ENDOSCOPIC HARVEST VEIN(S) FOR CABG (WRVU 0.31) performed by Yuan Retana MD at [facility] MAIN OR ??? PRO THYROIDECTOMY 03/28/2013 THYROIDECTOMY, TOTAL OR COMPLETE performed by Manny Mcknight MD at [facility] MAIN OR Significant Family History: Family [...] PCP.As of 11/21/21- 5mg [place]/TW/F/Sa and 7.5mg /.) Past Week at Unknown time ??? ACCU-CHEK [...] (H) 65 - 199 mg/dL Labs at [facility] 12/08/2021-troponin I 8004 (UN L <60), [...] Monitor for ADRs. Trend troponins. Admission EKG. [facility] 12/09; consented. TTE. Telemetry [...] code #Diet-carb control; n.p.o. after midnight for [facility] #DVT prophy- heparin infusion #GI prophy- PPI Discussed with MD Morgan Peter PA-C APP2 pager [phone] 12/08/2021 Cardiology Attending Note I have seen [...] 1 due to graft or [place] coronary stenosis vs acute injury from CHF. 3. PAF: currrently in NSR. Have replaced warfarin with heparin 4. PAD: stable 5. DM: stable 6. CKD: will monitor and minimize contrast. Pt very appreciative of Dr. Yuan Retana's care in 2018. Will let him know patient is here. Iker Cuevas MD [facility] documented in this encounter Miscellaneous Notes Care [...] Type: *No Product type* / Secondary Insurance: [employer] [place] Prescription Coverage: Yes This plan was [...] cath without complications. Migdalia Parker PA-C Pager #[phone] 12/10/2021 Initial Assessments - Nick Georges RN [...] COVID test: Lab Results Component Value Date [id number] Not Detected 12/08/2021 Past medical History: Past [...] spouse would be surrogate decision maker per [place] surrogate decision making law. (Only good for 180 days) Any patient receiving care at [facility] must abide by [place] law. The hierarchy for surrogate decision making [...] (i) The agent with financial power of divorce attorney or a conservator appointed in accordance [...] - standard, cane - straight Home Address: [address] [place] [address] [place] [address] Social & Family Supports: All names listed below confirmed with patient as current and correct Extended Emergency Contact Information Primary Emergency Contact: Kisha Fatima Address: [address] [place] [address] [place] [address] [facility] Mobile Relation: Spouse Secondary Emergency Contact: Elba Swenson Address: [address] [place] Relation: Child Current Care Provided [...] Type: *No Product type* / Secondary Insurance: [facility] Prescription Coverage: Yes Preferred Pharmacy: [facility] [address] [id number] - [place], [place] - [address] [address] [facility] Status: Patient is a : unable to assess Primary Care Provider: Lovely Vicente MD [phone] Patient/Caregiver Goals of Treatment: Get out of here Potential Needs for Transition of Care: none Agency Referrals: none patient has used [facility] in the past Transportation: no concerns Transportation Anticipated: family or friend will provide Concerns to be Addressed: patient refuses services, discharge planning Assessment: Patient is admitted to [facility] Service pager [phone] for 76 y.o.??male??with h/o??CAD s/p 3vCABG (THOMPSON-LAD, [...] status on current unit. Nick Georges RN textile conservator, Office of Care Management Pager: [phone] Brief Op Note - Vitaliy Nobles MD - 12/10/2021 8:31 AM EDT Images from the original note were not included. [facility] [place] [address] CORONARY ANGIOGRAM AND PERCUTANEOUS CORONARY INTERVENTION REPORT Patient: Don Fatima : 1945 MR number: [id number] Date of Service: 12/10/2021 Supply Chain Buyer: Vitaliy Nobles MD Fellow: [place]o [place] MD [...] Consult Requested by: Cardiology Reason for Consultation: oDn Fatima is a 76 y.o. male [...] management and to provide a review of intermediate card tender diabetes care. Diabetes History: Don Fatima has had diabetes for 10 years. He has been on insulin for the last several years andis managed by his PCP. Lives in [place], [place] with his . States that he [...] 0-12 Units Subcutaneous TID WC ? ? [MAR Hold] insulin lispro 1-6 Units Subcutaneous 4 Times Daily AC & HS ??? [MAR Hold] amLODIPine 5 mg Oral Daily ??? [...] [SEP Hold] nitroGLYcerin Stopped (12/10/21 0824) ??? [MAR Hold] heparin (porcine) infusion 1,600 Units/hr (12/09/21 2317) PRN: [MAR Hold] ipratropium-albuteroL, [MAR Hold] senna-docusate, [MAR Hold] bisacodyL, [MAR Hold] sodiumchloride 0.9 % [...] 5 gm carb ratio for each meal) retirement diabetes care: Medications - Outpatient treatment regimen recommendations pending based on the hospital course. Monitoring - continue BG tid ac & hs Diet - low fat/low carb diet Exercise - weight-bearing exercise 30 min/day, as tolerated Thank you for allowing us to provide care for your patient Desirae Jett APRN Endocrinology Pager [phone] 70 minutes of this 80 minute visit [...] + trop. Known CAD with hx of [place] and CABG. DM. MARIA VICTORIA.ICM. ??? ASHD [...] for further details. STEPHANIE Rebolledo 12/08/2021 Pager [phone] documented in this encounter Plan of Treatment Upcoming Encounters Date Type Specialty Care Team Description 03/26/2022 Office Visit Cardiology Vitaliy Nobles MD [facility] [address] [place], [place] [address] (Wo rk) 06/10/2022 Office Visit Dermatology Laura Scherer MD [facility] [address] [place], [place] [address] (Wo rk) Scheduled Referrals Name [...] Glucose 215 (H) 65 - 199 [facility] mg/dL [facility] [...] Organization Address City/State/[place] [address] (ABNORMAL) Differential, Automated (12/12/2021 4:51 AM EDT) P athologist Signature Neutrophils % 75.4 % [facility] LABORATORY Neutr Abs (ANC) 5.95 1.70 - [facility] 6.10 [facility] x10(3)/[facility] LABORATORY Lymphocytes % 12.2 % [facility] Lymphocytes Abs 1.0 0.9 - 3.2 [facility] x10(3)/[facility] LABORATORY Monocytes % 9.5 % [facility] Monocyte Abs 0.8 0.3 - 0.9 [facility] x10(3)/[facility] LABORATORY Eosinophils % 1.8 % [facility] Eosinophils Abs 0.1 0.0 - 0.4 [facility] x10(3)/[facility] LABORATORY Basophils % 0.5 % [facility] LAB[facility]ORY Basophils Abs 0.0 0.0 - 0.1 [facility] x10(3)/[facility] LABORATORY Immature Gran [...] Gran Abs 0.05 (H) 0.00 - 0.04 x10(3)/[facility] LABORATORY Specimen Anatomical Collection Method Collection Time Receive d Time (Source) Location / / Volume Laterality Blood 12/12/2021 4:51 AM 5:06 EDT AM EDT Resulting Agency Comment Spec In Lab Bijan Sun MD HEMATOLOGY ORDERABLES Performing Organization Address City/State/[place] [address] (ABNORMAL) Hemogram (12/12/2021 4:51 AM EDT) Analysis Performed At Patho logist Time Signature WBC 7.9 4.0 - 9.5 [facility] x10(3)/[facility] LABORATORY RBC 4.19 (L) 4.58 - [facility] RYAN 5.54 [facility] x10(6)/[facility] LABORATORY Hemoglobin 12.1 (L) 13.7 - [facility] 16.5 g/dL [facility] LABORATORY Hematocrit 36.7 (L) 40.5 - [facility] 48.5 % [facility] LABORATORY MCV 87.6 82.9 - [facility] 93.1 [facility] LABORATORY MCH 28.9 27.5 - [facility] 32.[address] [facility] LABORATORY MCHC 33.0 32.0 - [facility] 35.7 g/dL [facility] LABORATORY Platelets 231 145 - 357 [facility] x10(3)/[facility] LABORATORY RDWSD 47.2 (H) 36.0 - [facility] 45.0 [facility] LABORATORY RDWCV 14.6 (H) 11.4 - [facility] 13.8 % [facility] LABORATORY MPV 9.5 7.6 - 12.9 [facility] LABORATORY nRBC % Auto 0.0 % [facility] LABORATORY nRBC Abs Auto 0.000 0.000 - [facility] 0.000 [facility] x10(3)/[facility] LABORATORY Specimen Anatomical Collection Method Collection Time Receive d Time (Source) Location / / Volume Laterality Blood 12/12/2021 4:51 AM 5:06 EDT AM EDT Resulting Agency Comment Spec In Lab Bijan Sun MD HEMATOLOGY ORDERABLES Performing Organization Address City/State/[place] [address] (ABNORMAL) Prothrombin Time (12/12/2021 4:51 AM EDT) P athologist Signature PT 14.9 (H) 9.4 - 12.5 [facility] LABORATORY INR 1.3 [facility] LABORATORY [...] Organization Address City/State/ZIP Code Phon e Number [place] [id number] (ABNORMAL) BMP w/fasting Glucose (12/12/2021 4:51 AM EDT) athologist Signature Glucose 152 (H) 65 - 99 [facility] Fasting mg/dL [facility] [...] of Diabetes Mellitus, Position Statement from the [place] [employer]. ??Diabete s Care, Volume 33, [...] Cuevas MD CHEMISTRY ORDERABLES Performing Organization Address City/[facility]/ZIP Code Phon e Number [address] Magnesium (12/12/2021 4:51 AM EDT) P athologist Signature Magnesium 1.02 0.69 - 1.07 [facility] mmol/L [facility] LABORATORY Specimen Anatomical Collection Method Collection Time Receive d Time (Source) Location / / Volume Laterality Blood 12/12/2021 4:51 AM 2 5:06 EDT AM EDT Resulting Agency Comment Spec In Lab Iker Cuevas MD CHEMISTRY ORDERABLES Performing Organization Address City/[facility]/[place] [address] POCT Glucose (12/12/2021 3:43 AM EDT) athologist Signature POC Glucose 138 65 - 199 [place] mg/dL [facility] [...] Organization Address City/State/[place] [address] POCT Glucose (12/11/2021 11:44 PM EDT) athologist Signature POC Glucose 124 65 - 199 [facility] RYAN mg/dL [facility] [...] Organization Address City/State/[place] [address] (ABNORMAL) POCT Glucose (12/11/2021 8:12 PM EDT) athologist Signature POC Glucose 200 (H) 65 - 199 [place] mg/dL [facility] LABORATORY Comment: Supplemental ranges: <140 mg/dL before meals <180 mg/dL all other times of the day Specimen Anatomical Collection Method Collection Time Receive d Time (Source) Location / / Volume Laterality Blood 12/11/2021 8:12 PM 2 8:12 EDT PM EDT Iker uCevas MD POINT OF CARE TEST ORDERABLE S Performing Organization Address City/State/[place] [address] (ABNORMAL) POCT Glucose (12/11/2021 6:50 PM EDT) athologist Signature POC Glucose 245 (H) 65 - 199 [facility] mg/[facility] [...] Organization Address City/State/[place] [address] (ABNORMAL) POCT Glucose (12/11/2021 4:00 PM EDT) athologist Signature POC Glucose 383 (H) 65 - 199 [facility] mg/dL [facility] [...] Organization Address City/State/[place] [address] (ABNORMAL) POCT Glucose (12/11/2021 12:01 PM EDT) athologist Signature POC Glucose 342 (H) 65 - 199 [facility] RYAN mg/dL [facility] [...] Organization Address City/State/[place] [address] COVID-19 PCR (12/11/2021 10:13 AM EDT) [facility] Method Time Signature SARS-CoV-2 Not Detected Not Detected [facility] LABORATORY Comment: This result should [...] diagnosis of COVID-19 is performed using the [employer] S-CoV-2 Assay as authorized by the FDA Emergency Use Authorization (EUA). This EUA assay is intended for In-vitro Diagnostic (IVD) use with respiratory sp ecimens such as nasopharyngeal swabs collected from individuals during the ac terrence phase of infection. This assay is performed based on the instructions for use provided by [employer]. and additional guidance provided by CDC and FDA. Testing is performed in the [facility] Laboratory within the Department of Pathology and Laboratory Medicine at [facility], certified under the Clinical Laboratory Improvement [...] fact sheets at the following FDA website: https://www.fda.gov/medical-devices/jrthhymnchh-wvnqiex-9706-onxgh-49-yxvoqpljr- ggq-ogztibatxetgum-fsblncu-devices/gjgqc-buozgzumiuf-yexx SARS-Cov-2 RNA Source HIDE SHAKER Swab [facility] LABORATORY Specimen (Source) Anatomical Collection Method Collection Time Re ceived Time Location / / Volume Laterality Nasopharyngeal Swab 12/11/2021 10:13 0503/2022 AM EDT 11:16 AM EDT Comment: Symptoms->Surveillance Resulting Agency Comment Spec In Lab Iker Cuevas MD MICROBIOLOGY - GENERAL ORDER [place] Performing Organization Address City/State/ZIP Code Phon e Number [address] POCT Glucose (12/11/2021 7:34 AM EDT) athologist Signature POC Glucose 198 65 - 199 [facility] mg/dL [facility] LABORATORY Comment: Supplemental ranges: <140 mg/dL before meals <180 mg/dL all other times of the day Specimen Anatomical Collection Method Collection Time Receive d Time (Source) Location / / Volume Laterality Blood 12/11/2021 7:34 AM 7:34 EDT AM EDT Iker Cuevas MD POINT OF CARE TEST ORDERABLE S Performing Organization Address City/[facility]/[place] [address] (ABNORMAL) POCT Glucose (12/11/2021 5:07 AM EDT) P athologist Signature POC Glucose 208 (H) 65 - 199 [facility] mg/dL [facility] [...] Organization Address City/State/[place] [address] (ABNORMAL) Differential, Automated (12/11/2021 4:28 AM EDT) Patholo gist Method Time Signature Neutrophils % 79.6 % [facility] LABORATORY Neutr Abs (ANC) 7.01 (H) 1.70 - [facility] 6.10 [facility] x10(3)/[facility] LABORATORY Lymphocytes % 9.1 % [facility] LABORATORY Lymphocytes Abs 0.8 (L) 0.9 - 3.2 [facility] x10(3)/[facility] LABORATORY Monocytes % 9.2 % [facility] LAB[facility]ATORY Monocyte Abs 0.8 0.3 - 0.9 [facility] x10(3)/[facility] LABORATORY Eosinophils % 1.3 % [facility] Eosinophils Abs 0.1 0.0 - 0.4 [facility] x10(3)/[facility] LABORATORY Basophils % 0.5 % [facility] LAB[facility]ORY Basophils Abs 0.0 0.0 - 0.1 [facility] x10(3)/[facility] LABORATORY Immature [...] Organization Address City/State/[place] [address] (ABNORMAL) Hemogram (12/11/2021 4:28 AM EDT) Analysis Performed At Patho logist Time Signature WBC 8.8 4.0 - 9.5 [facility] x10(3)/[facility] LABORATORY RBC 4.15 (L) 4.58 [facility] 5.54 [facility] x10(6)/[facility] LABORATORY Hemoglobin 11.9 (L) 13.7 - [facility] 16.5 g/dL [facility] LABORATORY Hematocrit 36.9 (L) 40.5 - [facility] 48.5 % [facility] LABORATORY MCV 88.9 82.9 - [facility] 93.1 [facility] LABORATORY MCH 28.7 27.5 - [facility] 32.[address] [facility] LABORATORY MCHC 32.2 32.0 - [facility] 35.7 g/dL [facility] LABORATORY Platelets 211 145 - 357 [facility] x10(3)/[facility] LABORATORY RDWSD 48.3 (H) 36.0 [facility] 45.0 [facility] LABORATORY RDWCV 14.8 (H) 11.4 - [facility] 13.8 % [facility] LABORATORY MPV 9.6 7.6 - 12.9 [facility] LABORATORY nRBC % Auto 0.0 % [facility] LABORATORY nRBC Abs Auto 0.000 0.000 - [facility] RYAN 0.000 [facility] x10(3)/[facility] LABORATORY Specimen Anatomical Collection Method Collection Time Receive d Time (Source) Location / / Volume Laterality Blood 12/11/2021 4:28 AM 2 4:37 EDT AM EDT Resulting Agency Comment Spec In Lab Bijan Sun MD HEMATOLOGY ORDERABLES Performing Organization Address City/State/[place] [address] (ABNORMAL) Prothrombin Time (12/11/2021 [...] Organization Address City/State/[place] [address] (ABNORMAL) BMP w/fasting Glucose (12/11/2021 4:28 AM EDT) athologist Signature Glucose 207 (H) 65 - 99 [facility] Fasting mg/dL [facility] [...] of Diabetes Mellitus, Position Statement from the [place] [employer]. ??Diabete s Care, Volume 33, Supplement 1, Jul 2009 BUN 49 (H) 10 - 20 mg/dL [facility] LABORATORY Creatinine 1.43 0.80 - 1.50 mg/dL [facility] LABORATORY [...] Organization Address City/State/[place] [address] Magnesium (12/11/2021 4:28 AM EDT) athologist Signature Magnesium 1.04 0.69 - 1.07 [facility] mmol/L [facility] LABORATORY Specimen Anatomical Collection Method Collection Time Receive d Time (Source) Location / / Volume Laterality Blood 12/11/2021 4:28 AM 2 4:37 EDT AM EDT Resulting Agency Comment Spec In Lab Iker Cuevas MD CHEMISTRY ORDERABLES Performing Organization Address City/State/ZIP Code Phon e Number [address] POCT Glucose (12/11/2021 3:58 AM EDT) athologist Signature POC Glucose 189 65 - 199 [facility] mg/dL [facility] [...] Organization Address City/State/[place] [address] (ABNORMAL) POCT Glucose (12/10/2021 11:45 PM EDT) athologist Signature POC Glucose 205 (H) 65 - 199 [facility] mg/dL [facility] [...] Organization Address City/State/[place] [address] (ABNORMAL) POCT Glucose (12/10/2021 7:54 PM EDT) athologist Signature POC Glucose 225 (H) 65 - [facility]/dL [facility] LABORATORY Comment: Supplemental ranges: <140 mg/dL before meals <180 mg/dL all other times of the day Specimen Anatomical Collection Method Collection Time Receive d Time (Source) Location / / Volume Laterality Blood 12/10/2021 7:54 PM 2 7:54 EDT PM EDT Iker Cuevas MD POINT OF CARE TEST ORDERABLE S Performing Organization Address City/[facility]/ZIP [facility] Phon e Number [address] Potassium (12/10/2021 7:46 PM EDT) athologist Signature Potassium 4.2 3.5 - 5.0 [facility] mmol/L [facility] [...] Cuevas MD CHEMISTRY ORDERABLES Performing Organization Address City/[facility] [place] [address] (ABNORMAL) Basic Metabolic Panel (non-fasting) (12/10/2021 6:12 PM EDT) athologist Signature Glucose Lvl 246 (H) 65 - 199 [facility] mg/dL [facility] LABORATORY Comment: Diabetes: >=200 mg/dL plus symp toms BUN 50 (H) 10 - 20 mg/dL [facility] LABORATORY Creatinine 1.39 0.80 - 1.50 mg/dL [facility] LABORATORY Sodium 138 135 - 145 mmol/L [facility] LABORATORY Potassium Not Perf 3.5 - 5.0 [facility] LABORATORY Comment: Unable to quantitate due [...] Organization Address City/State/[place] [address] POCT Glucose (12/10/2021 4:59 PM EDT) athologist Signature POC Glucose 158 65 - 199 [facility] mg/dL [facility] [...] Organization Address City/State/[place] [address] (ABNORMAL) POCT Glucose (12/10/2021 12:43 PM EDT) P athologist Signature POC Glucose 241 (H) 65 - 199 [facility] mg/dL [facility] LABORATORY Comment: Supplemental ranges: <140 mg/dL before meals <180 mg/dL all other times of the day Specimen Anatomical Collection Method Collection Time Receive d Time (Source) Location / / Volume Laterality Blood 12/10/2021 12:43 12/10/2021 PM EDT 12:43 PM EDT Iker Cuevas MD POINT OF CARE TEST ORDERABLE S Performing Organization Address City/[facility]/[place] [address] EKG 12 Lead (12/10/2021 11:17 AM EDT) Component Value Ref Range Test Analysis Performed Pathologis t Method Time At Signature Ventricular rate 62 BPM MUSE SYSTEM Atrial Rate 62 BPM MUSE SYSTEM P-R Interval 142 ms MUSE SYSTEM QRS Duration 100 ms MUSE SYSTEM Q-T Interval 434 ms MUSE SYSTEM QTC Calculated 440 ms MUSE SYSTEM (Bezet) Calculated P [place] 34 degrees MUSE SYSTEM Calculated R [place] -39 degrees MUSE SYSTEM Calculated T [place] 92 degrees MUSE SYSTEM INTERPRETATION Normal sinus [...] - 12/10/2021 12:04 PM E DT ?[facility] ? Cardiac Cathete rization/Intervention Report ? Patient Name: Don Fatima. ? Procedure Date: 12/10/2021 ? A #: [id number] ? Primary Physician: Vitaliy Nobles ? Case #: [id number] ? File Name: [id number] ? Catheterization Order Number: [id number] ? [facility] ? Final Report [place], [place] ? Patient Name: ? Don E. Stewa rt ? ID#: ?[id number] ? : ?1945 ? Procedure Date: ? December 10, 2021 ? Case #: ? [id number] ? Room: ? 1 ? Case Physician: ? Vitaliy P Fabian Nobles ?Start: ?08:41 ?Fellow: ? [place] M.D. [...] was ?designated as ASA Class III. e [facility] clinical frailty scale is 5: Mildly ?Frail. [...] procedure was Urgent. The indication for ?the sawyer cork slabs visit is ACS great er than 24 [...] a 3.5 Fr [facility] 20 Mhz using Manual ?pullback. ??Imaging was [...] a 3.5 Fr [facility] 20 Mhz using Manual ?pullback. ??Imaging was [...] require ?modification of this regimen. C onsult [facility] Interventional Cardiology for ?questions. ?The 1 year bleeding risk as nusrat culated by the PRECISE DAPT score is High ?risk. ?High Bleeding Risk - Anticoagul ation and DAPT: ?- ??Assess ischemic and bleedin g risks using validated risk predictors ?(e.g. CHADS2-VASC, HAS-BLED, MI ECISE DAPT, DAPT Score) ?- ??Keep anticoagulant [...] ?SUMMARY AND THERAPEUTIC RECOMME NDATIONS: ?Don E Kushal presents with a NSTEMI, pulmonary edema, a [...] Note Vitaliy Nobles MD - 01/14/2022 [facility] Cardiac Catheterization/Intervention Re port Patient Name: Don Fatima Procedure Date: 12/10/2021 A #: [id number] Primary Physician: Vitaliy Nobles Case #: [id number] File Name: [id number] Catheterization Order Number: [id number] [facility] Final Report [place], [place] Patient Name: Don Fatima ID#: [...] e was Urgent. The indication for the sawyer cork slabs visit is ACS greater than 24 hrs [...] and a 3.5 Fr [facility] 20 Mhz using Manual pullback. Imaging was [...] and a 3.5 Fr [facility] 20 Mhz using Manual pullback. Imaging was [...] POC Glucose 262 (H) 65 - 199 [facility] mg/dL [facility] [...] Organization Address City/State/[place] [address] (ABNORMAL) POCT Glucose (12/10/2021 9:48 AM EDT) athologist Signature POC Glucose 279 (H) 65 - [facility] [...] Organization Address City/State/ZIP Code Phon e Number [address] (ABNORMAL) POCT Glucose (12/10/2021 9:07 AM EDT) athologist Signature POC Glucose 268 (H) 65 - [address] [facility]dL [facility] LABORATORY Comment: Supplemental ranges: <140 mg/dL before meals <180 mg/dL all other times of the day Specimen Anatomical Collection Method Collection Time Receive d Time (Source) Location / / Volume Laterality Blood 12/10/2021 9:07 AM 2 9:07 EDT AM EDT Iekr Cuevas MD POINT OF CARE TEST ORDERABLE S Performing Organization Address City/State/[place] [address] (ABNORMAL) Point of Care Blood Gas Historical (12/10/2021 9:04 AM EDT) [facility] Method Time Signature POC pH 7.40 7.35 - [facility] 7.[address] [facility] LABORATORY POC PCO2 40 35 - 45 [facility] LABORATORY POC PO2 63 (L) 85 - 104 [facility] LABORATORY POC Base Excess 0.0 -3.0 - 3.0 [facility] K mmol/L [facility] LABORATORY POC HCO3 24.8 20.0 - [facility] 26.0 [facility] mmol/[facility] LABORATORY POC Sodium 143 135 - 145 [facility] mmol/L [facility] LABORATORY POC Potassium 3.7 3.5 - 5.0 [facility] mmol/L [facility] LABORATORY POC Ionized Ca 1.07 (L) 1.15 - [facility] 1.33 [facility] mmol/[facility] LABORATORY POC Hematocrit 30.0 (L) 40.0 - [facility] 51.0 % [facility] LABORATORY POC Calc Hgb 10.2 (L) 13.7 - [facility] 17.5 g/dL [facility] LABORATORY Comment: The calculation of hemoglobin f rom hematocrit assumes a normal MCHC. POC Bgas Loc CC LAB [facility] LABORATORY Specimen Anatomical Collection Method Collection Time Receive d Time (Source) Location / / Volume Laterality Blood 12/10/2021 9:04 AM 2 EDT 12:00 PM EDT Ifeanyi Truong MD CHEMISTRY ORDERABLES Performing Organization Address City/[facility]/[place] [address] (ABNORMAL) POCT Glucose (12/10/2021 7:19 AM EDT) athologist Signature POC Glucose 274 (H) 65 - 199 [facility] mg/dL [facility] LABORATORY Comment: Supplemental ranges: <140 mg/dL before meals <180 mg/dL all other times of the day Specimen Anatomical Collection Method Collection Time Receive d Time (Source) Location / / Volume Laterality Blood 12/10/2021 7:19 AM 2 7:19 EDT AM EDT Iker Cuevas MD POINT OF CARE TEST ORDERABLE S Performing Organization Address City/[facility]/[place] [address] Heparin (unfractionated) Level (12/10/2021 4:25 AM EDT) athologist Signature Heparin UFH 0.69 IU/mL [facility] LABORATORY Comment: Heparin (anti-Xa) levels should be deter mined in a plasma sample that has been drawn 6 hours after a dose change to egra roximate steady-state for continuous heparin infusions. Indication [...] Organization Address City/State/[place] [address] (ABNORMAL) Differential, Automated (12/10/2021 4:25 AM EDT) [facility] Method Time Signature Neutrophils % 79.8 % [facility] LABORATORY Neutr Abs (ANC) 7.47 (H) 1.70 - [facility] 6.10 [facility] x10(3)/[facility] LABORATORY Lymphocytes % 10.6 % [facility] LABORATORY Lymphocytes Abs 1.0 0.9 - 3.2 [facility] x10(3)/[facility] LABORATORY Monocytes % 8.4 % [facility] LABORATORY Monocyte Abs 0.8 0.3 - 0.9 [facility] x10(3)[facility] LABORATORY Eosinophils % 0.6 % [facility] LABORATORY Eosinophils Abs 0.1 0.0 - 0.4 [facility] x10(3)[facility] LABORATORY Basophils % 0.2 % [facility] LABORATORY Basophils Abs 0.0 0.0 - 0.1 [facility] x10(3)/[facility] LABORATORY Immature [...] Abs 0.04 0.00 - 0.04 x10(3)/[facility] LABORATORY Specimen Anatomical Collection Method Collection Time Receive d Time (Source) Location / / Volume Laterality Blood 12/10/2021 4:25 AM 4:34 EDT AM EDT Resulting Agency Comment Spec In Lab Morgan BROWN HEMATOLOGY ORDERABLES Performing Organization Address City/State/[place] [address] (ABNORMAL) Hemogram (12/10/2021 4:25 AM EDT) Analysis Performed At Patho logist Time Signature WBC 9.4 4.0 - 9.5 [facility] x10(3)/[facility] LABORATORY RBC 3.81 (L) 4.58 - [facility] 5.54 [facility] x10(6)/[facility] LABORATORY Hemoglobin 11.1 (L) 13.7 - [facility] g/dL [facility] LABORATORY Hematocrit 34.0 (L) 40.5 - [facility] 48.5 % [facility] LABORATORY MCV 89.2 82.9 - [facility] 93.1 [facility] LABORATORY MCH 29.1 27.5 [facility] 32.[address] [facility] LABORATORY MCHC 32.6 32.0 - [facility] 35.7 g/dL [facility] LABORATORY Platelets 183 145 - 357 [facility] x10(3)/[facility] LABORATORY RDWSD 49.9 (H) 36.0 - [facility] 45.0 [facility] LABORATORY RDWCV 15.2 (H) 11.4 - [facility] 13.8 % [facility] LABORATORY MPV 9.8 7.6 - 12.9 [facility] LABORATORY nRBC % Auto 0.0 % [facility] LABORATORY nRBC Abs Auto 0.000 0.000 - [facility]AN 0.000 [facility] x10(3)/[facility] LABORATORY Specimen Anatomical Collection Method Collection Time Receive d Time (Source) Location / / Volume Laterality Blood 12/10/2021 4:25 AM 2 4:34 EDT AM EDT Resulting Agency Comment Spec In Lab Morgan BROWN HEMATOLOGY ORDERABLES Performing Organization Address City/State/[place] [address] (ABNORMAL) Prothrombin Time (12/10/2021 [...] Organization Address City/State/[place] [address] (ABNORMAL) BMP w/fasting Glucose (12/10/2021 4:25 AM EDT) P athologist Signature Glucose 210 (H) 65 - 99 [facility] Fasting mg/dL [facility] [...] of Diabetes Mellitus, Position Statement from the [place] [employer]. ??Diabete s Care, Volume 33, Supplement 1, Jul 2009 BUN 54 (H) 10 - 20 mg/dL [facility] LABORATORY Creatinine 1.52 (H) 0.80 - 1.50 mg/dL [facility] [...] mmol/L [facility] LABORATORY Calcium 8.0 (L) [...] Organization Address City/State/[place] [address] Magnesium (12/10/2021 4:25 AM EDT) athologist Signature Magnesium 0.95 0.69 - 1.07 [facility]/L [facility] LABORATORY Specimen Anatomical Collection Method Collection Time Receive d Time (Source) Location / / Volume Laterality Blood 12/10/2021 4:25 AM 2 4:34 EDT AM EDT Resulting Agency Comment Spec In Lab Iker Cuevas MD CHEMISTRY ORDERABLES Performing Organization Address City/[facility]/ZIP Code Phon e Number [address] POCT Glucose (12/10/2021 1:58 AM EDT) athologist Signature POC Glucose 164 65 - 199 [facility] mg/dL [facility] LABORATORY Comment: Supplemental ranges: <140 mg/dL before meals <180 mg/dL all other times of the day Specimen Anatomical Collection Method Collection Time Receive d Time (Source) Location / / Volume Laterality Blood 12/10/2021 1:58 AM 2 1:58 EDT AM EDT Iker Cuevas MD POINT OF CARE TEST ORDERABLE S Performing Organization Address City/[facility]/[place] [address] (ABNORMAL) POCT Glucose (12/09/2021 9:02 PM EDT) athologist Signature POC Glucose 313 (H) 65 - 199 [facility] mg/dL [facility] [...] Address City/State/ZIP [place] [address] Heparin (unfractionated) Level (12/09/2021 [...] Organization Address City/State/[place] [address] (ABNORMAL) Basic Metabolic Panel (non-fasting) (12/09/2021 7:30 PM EDT) athologist Signature Glucose Lvl 372 (H) 65 - 199 [facility] mg/dL [facility] LABORATORY Comment: Diabetes: >=200 mg/dL plus symp toms BUN 56 (H) 10 - 20 mg/dL [facility] LABORATORY Creatinine 1.75 (H) 0.80 - 1.50 mg/dL [facility] LABORATORY Sodium 138 135 - 145 [...] Organization Address City/State/[place] [address] (ABNORMAL) POCT Glucose (12/09/2021 6:34 PM EDT) P athologist Signature POC Glucose 408 (H) 65 - 199 [facility] mg/dL [facility] LABORATORY Comment: Supplemental ranges: <140 mg/dL before meals <180 mg/dL all other times of the day Specimen Anatomical Collection Method Collection Time Receive d Time (Source) Location / / Volume Laterality Blood 12/09/2021 6:34 PM 2 6:34 EDT PM EDT Iker Cuevas MD POINT OF CARE TEST ORDERABLE S Performing Organization Address City/[facility]/[place] [address] (ABNORMAL) POCT Glucose (12/09/2021 6:32 PM EDT) athologist Signature POC Glucose 356 (H) 65 - 199 [facility] mg/dL [facility] LABORATORY Comment: Supplemental ranges: <140 mg/dL before meals <180 mg/dL all other times of the day Specimen Anatomical Collection Method Collection Time Receive d Time (Source) Location / / Volume Laterality Blood 12/09/2021 6:32 PM 2 6:32 EDT PM EDT Iker Cuevas MD POINT OF CARE TEST ORDERABLE S Performing Organization Address City/[facility]/[place] [address] (ABNORMAL) POCT Glucose (12/09/2021 4:19 PM EDT) athologist Signature POC Glucose 347 (H) 65 - 199 [facility] mg/dL [facility] LABORATORY Comment: Supplemental ranges: <140 mg/dL before meals <180 mg/dL all other times of the day Specimen Anatomical Collection Method Collection Time Receive d Time (Source) Location / / Volume Laterality Blood 12/09/2021 4:19 PM 2 4:19 EDT PM EDT Iker Cuevas MD POINT OF CARE TEST ORDERABLE S Performing Organization Address City/[facility]/[place] [address] Heparin (unfractionated) Level (12/09/2021 [...] Cuevas MD HEMATOLOGY ORDERABLES Performing Organization Address City/[facility]/ZIP Code Phon e Number [address] (ABNORMAL) POCT Glucose (12/09/2021 12:02 PM EDT) P athologist Signature POC Glucose 235 (H) 65 - 199 [facility] LABORATORY Comment: Supplemental ranges: <140 mg/dL before meals <180 mg/dL all other times of the day Specimen Anatomical Collection Method Collection Time Receive d Time (Source) Location / / Volume Laterality Blood 12/09/2021 12:02 12/09/2021 PM EDT 12:02 PM EDT Iker Cuevas MD POINT OF CARE TEST ORDERABLE S Performing Organization Address City/[facility]/[place] [address] (ABNORMAL) POCT Glucose (12/09/2021 9:44 AM EDT) P athologist Signature POC Glucose 214 (H) 65 - 199 [place] mg/dL [facility] [...] Organization Address City/State/[place] [address] EKG 12 Lead (12/09/2021 7:57 AM EDT) Component Value Ref Range Test Analysis Performed Pathologis t Method Time At Signature Ventricular rate 101 BPM MUSE SYSTEM Atrial Rate 101 BPM MUSE SYSTEM P-R Interval 150 ms MUSE SYSTEM QRS Duration 112 ms MUSE SYSTEM Q-T Interval 364 ms MUSE SYSTEM QTC Calculated 471 ms MUSE SYSTEM (Bezet) Calculated P [place] 59 degrees MUSE SYSTEM Calculated R [place] -42 degrees MUSE SYSTEM Calculated T [place] 102 degrees MUSE SYSTEM INTERPRETATION Sinus tachycardia Occasional Premature ventricular com plexes MUSE SYSTEM Left axis deviation 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) Abnormal ECG When compared with ECG of 08-DEC-2021 16:40, Premature ventricular complexes are now Present Confirmed by MD Jim, Yoon ([id number]) on 12/10/2021 4:55:06 PM Specimen Anatomical Collection Method Collection Time Receive d Time (Source) Location / / Volume Laterality 12/09/2021 7:57 AM 2 4:55 EDT PM EDT Iker Cuevas MD ECG ORDERABLES Performing Organization Address City/State/ZIP Code Phon e Number MUSE SYSTEM (ABNORMAL) POCT Glucose (12/09/2021 7:28 AM EDT) P athologist Signature POC Glucose 263 (H) 65 - 199 [facility] mg/dL [facility] [...] Organization Address City/State/[place] [address] (ABNORMAL) Hemoglobin A1c (12/09/2021 [...] Avg Gluc See note mg/dL [facility] LABORATORY Comment: Estimated Average Glucose not appropriat [...] hemoglobinopathies. Additional resources are available on [facility] ADA website. Macario HAMMOND, Ruthann J, Deysi R, et al. ??Tr anslating the A1C assay into estimated average glucose values. ??Diabetes Care 2008:31(8):8657-2703. Specimen Anatomical Collection Method Collection Time Receive d Time (Source) Location / / Volume Laterality Blood Venous Draw / 12/09/2021 6:18 AM 12/10/19 22 Unknown EDT 12:24 PM EDT Resulting Agency Comment Spec In Lab Migdalia BROWN CHEMISTRY ORDERABLES Performing Organization Address City/State/[facility] [place] [address] (ABNORMAL) Prothrombin Time (12/09/2021 [...] Organization Address City/State/[place] [address] Heparin (unfractionated) Level (12/09/2021 [...] Organization Address City/State/[place] [address] (ABNORMAL) Differential, Automated (12/09/2021 6:18 AM EDT) [facility] Method Time Signature Neutrophils % 91.5 % [facility] LABORATORY Neutr Abs (ANC) 15.78 (H) 1.70 - [facility] 6.10 [facility] x10(3)/[facility] LABORATORY Lymphocytes % 2.9 % [facility] Lymphocytes Abs 0.5 (L) 0.9 - 3.2 [facility] x10(3)/[facility] LABORATORY Monocytes % 4.9 % [facility] Monocyte Abs 0.8 0.3 - 0.9 [facility] x10(3)/[facility] LABORATORY Eosinophils % 0.0 % [facility] Eosinophils Abs 0.0 0.0 - 0.4 [facility] x10(3)/[facility] LABORATORY Basophils % 0.2 % [facility] Basophils Abs 0.0 0.0 - 0.1 [facility] x10(3)/[facility] LABORATORY Immature [...] Gran Abs 0.09 (H) 0.00 - 0.04 x10(3)/[facility] LABORATORY Specimen Anatomical Collection Method Collection Time Receive d Time (Source) Location / / Volume Laterality Blood 12/09/2021 6:18 AM 2 6:33 EDT AM EDT Resulting Agency Comment Spec In Lab Morgan BROWN HEMATOLOGY ORDERABLES Performing Organization Address City/[facility]/[place] [address] (ABNORMAL) Hemogram (12/09/2021 6:18 AM EDT) Analysis Performed At Patho logist Time Signature WBC 17.2 (H) 4.0 - 9.[facility](3[facility] LABORATORY RBC 4.32 (L) 4.58 - [place] 5.54 [facility] x10(6)/[facility] LABORATORY Hemoglobin 12.6 (L) 13.7 - [facility] 16.5 g/dL [facility] LABORATORY Hematocrit 38.9 (L) 40.5 - [facility] 48.5 % [facility] LABORATORY MCV 90.0 82.9 - [facility] 93.1 [facility] LABORATORY MCH 29.2 27.5 - [facility] 32.[address] [facility] LABORATORY MCHC 32.4 32.0 - [facility] 35.7 g/dL [facility] LABORATORY Platelets 193 145 - 357 [facility] x10(3)/[facility] LABORATORY RDWSD 50.4 (H) 36.0 - [place] 45.0 [facility] LABORATORY RDWCV 15.2 (H) 11.4 - [facility] 13.8 % [facility] LABORATORY MPV 9.5 7.6 - 12.9 [facility] nRBC % Auto 0.0 % [facility] nRBC Abs Auto 0.000 0.000 [facility] x10(3)/[facility] LABORATORY Specimen Anatomical Collection Method Collection Time Receive d Time (Source) Location / / Volume Laterality Blood 12/09/2021 6:18 AM 6:33 EDT AM EDT Resulting Agency Comment Spec In Lab Morgan BROWN HEMATOLOGY ORDERABLES Performing Organization Address City/State/[place] [address] Lipid Panel (Reflex Direct LDL) (12/09/2021 6:18 AM EDT) athologist Signature Chol, Total 105 mg/dL [facility] LABORAT[facility] Comment: Lower Risk: <200 mg/dL Average Risk: 200-239 mg/dL Higher Risk: >lh=916 mg/dL Triglycerides 133 mg/dL [facility] LABORATORY Comment: Average Risk/Lower Risk: <150 mg/dL Borderline High Risk: 150-199 mg/dL High Risk: 200-499 mg/dL Very High Risk: >cc=152 mg/dL HDL 42 mg/dL [facility] LABORATORY Comment: Males: ?? Higher Risk: <40 mg/dL Females: ?? Higher Risk: <50 mg/dL LDL Cholesterol 36 mg/dL [facility] LAB[facility] Comment: Lowest Risk: <100 mg/dL Lower Risk: 100-129 mg/dL Borderline High Risk: 130-159 mg/dL High Risk: 160-189 mg/dL Very High Risk: >rt=118 mg/dL Chol/HDL Ratio 2.[address] [facility] LAB[facility]ATORY Lipid Interpretation See Note [facility] LABORATORY Comment: Lipid management should be guided by a p atient? s ASCVD risk, goals and preferences. ACC/AHA Guidelines recommend high intens ity statin if clinical ASCVD or LDL greater than or equal to 190 mg/dL. http://Unblab.com/RLU-OVP-Epvdoahik Adults aged 40-75 with LDL 70-189 mg/dL should have their 10 year ASCVD risk estimated with the ACC/AHA ASCVD risk es timator http://tools.acc.org/SIXQV-Vteb-Mcpjjqmr r/ Statin should be discussed if risk [...] Cuevas MD CHEMISTRY ORDERABLES Performing Organization Address [facility] [place] [address] TSH (12/09/2021 6:18 AM EDT) P athologist Signature TSH 1.60 0.27 - 4.20 [place] mcIU/mL [facility] LABORATORY Comment: Reference Interval (mcIU/mL): Females: ??First Trimester: 0.23-3.88 ??Second Trimester: 0.22-3.90 ??Third Trimester: 0.44-4.66 Specimen Anatomical Collection Method Collection Time Receive d Time (Source) Location / / Volume Laterality Blood 12/09/2021 6:18 AM 2 6:33 EDT AM EDT Resulting Agency Comment Spec In Lab Iker Cuevas MD CHEMISTRY ORDERABLES Performing Organization Address [facility] [place] [address] Hepatic Function Panel (12/09/2021 6:18 AM EDT) P athologist Signature Total Protein 7.3 6.1 - 8.0 [place] g/dL [facility] LABORATORY Albumin 4.2 3.2 - 5.2 [place] g/dL [facility] LABORATORY AST 25 0 - 39 [place] unit/L [facility] LABORATORY ALT 15 0 - 55 [place] unit/L [facility] LABORATORY Alk Phos 75 40 - 130 [place] unit/L [facility] LABORATORY Total 1.1 0.2 - 1.3 [place] Bilirubin mg/dL [facility] LABORATORY Bili, Direct 0.2 0.0 - 0.3 [place] mg/dL [facility] LABORATORY Specimen Anatomical Collection Method Collection Time Receive d Time (Source) Location / / Volume Laterality Blood 12/09/2021 6:18 AM 2 6:33 EDT AM EDT Resulting Agency Comment Spec In Lab Iker Cuevas MD CHEMISTRY ORDERABLES Performing Organization Address City/State/[place] [address] (ABNORMAL) BMP w/fasting Glucose (12/09/2021 6:18 AM EDT) P athologist Signature Glucose 235 (H) 65 - 99 [facility] Fasting mg/dL [facility] [...] of Diabetes Mellitus, Position Statement from the [place] [employer]. ??Diabete s Care, Volume 33, Supplement 1, Jul 2009 BUN 49 (H) 10 - 20 mg/dL [facility] LABORATORY Creatinine 1.33 0.80 - 1.50 mg/dL [facility] LABORATORY [...] Resulting Agency Comment Spec In Lab Iker Cuevsa MD CHEMISTRY ORDERABLES Performing Organization Address City/[facility]/ZIP Code Phon e Number [address] Magnesium (12/09/2021 6:18 AM EDT) athologist Signature Magnesium 0.81 0.69 - 1.07 [facility] mmol/L [facility] LABORATORY Specimen Anatomical Collection Method Collection Time Receive d Time (Source) Location / / Volume Laterality Blood 12/09/2021 6:18 AM 2 6:33 EDT AM EDT Resulting Agency Comment Spec In Lab Iker Cuevas MD CHEMISTRY ORDERABLES Performing Organization Address City/[facility] [place] [address] (ABNORMAL) Troponin (12/09/2021 6:18 AM EDT) athologist Signature Troponin-T 1.13 (H) 0.00 - [facility] 0.00 ng/mL [facility] [...] additional sample may be indicated. Reference: Third Belpre Definition of Myocardial Infarction. Journal of the [place] [employer] 2012;60:1581-98 Specimen Anatomical Collection Method Collection Time Receive d Time (Source) Location / / Volume Laterality Blood 12/09/2021 6:18 AM 6:33 EDT AM EDT Resulting Agency Comment Spec In Lab Iker Cuevas MD CHEMISTRY ORDERABLES Performing Organization Address City/State/ZIP Code Phon e Number [place] [id number] XR Chest One View [...] who have questions please contact the health skin care therapist that requested your imaging first. ? Narrative [...] ho have questions please contact the health skin care therapist that requested your imaging first. Amber Sanches MD IMG DX ORDERABLES (ABNORMAL) BLOOD GAS 2 ARTERIAL (12/09/2021 5:14 AM EDT) Analysis Performed At Patho logist Time Signature pH Art 7.43 7.35 - [facility] 7.[address] [facility] LABORATORY pCO2 Art 36 35 - 45 [facility] LABORATORY pO2 Art 67 (L) 85 - 104 [facility] LABORATORY HCO3 Art 23.4 20.0 - [facility] 26.0 [facility] mmol/L [facility] LABORATORY BE Art -0.9 -3.0 - 3.0 [facility] mmol/L [facility] LABORATORY Hgb Blood Gas 13.2 (L) 13.7 - [facility] 16.5 g/dL [facility] LABORATORY O2HB Art 91.3 (L) 94.0 - [facility] 97.0 % [facility] LABORATORY COHB Art 0.4 % [facility] LABORATORY Comment: Nonsmokers: 0.5-1.5% COHB Smokers: Variable, but usually less than 10% Toxic: 20-30% COHB Lethal: Greater than 60% COHB METHB Art 0.4 <=1.5 % [facility] LABORATORY Na Whole [...] [facility] LABORATORY FIO2 Art 35 % [facility] LABORATORY Flow Art 8.0 LPM [facility] LABORATORY PF Ratio Art 191 [facility] LABORATORY Specimen Anatomical Collection Method Collection Time Receive d Time (Source) Location / / Volume Laterality Blood 12/09/2021 5:14 AM 2 5:14 EDT AM EDT Iker Cuevas MD CHEMISTRY ORDERABLES Performing Organization Address City/State/ZIP Code Phon e Number [address] POCT Glucose (12/09/2021 4:46 AM EDT) athologist Signature POC Glucose 198 65 - 199 [facility] mg/dL [facility] [...] Organization Address City/State/[place] [address] (ABNORMAL) POCT Glucose (12/09/2021 3:01 AM EDT) athologist Signature POC Glucose 225 (H) 65 - 199 [facility] mg/dL [facility] [...] Organization Address City/State/ZIP Code Phon e Number [address] (ABNORMAL) POCT Glucose (12/08/2021 10:55 PM EDT) athologist Signature POC Glucose 327 (H) 65 - 199 [facility] mg/dL [facility] LABORATORY Comment: Supplemental ranges: <140 mg/dL before meals <180 mg/dL all other times of the day Specimen Anatomical Collection Method Collection Time Receive d Time (Source) Location / / Volume Laterality Blood 12/08/2021 10:55 12/08/2021 PM EDT 10:55 PM EDT Iker Cuevas MD POINT OF CARE TEST ORDERABLE S Performing Organization Address City/[facility]/[place] [address] Heparin (unfractionated) Level (12/08/2021 [...] Cuevas MD HEMATOLOGY ORDERABLES Performing Organization Address City/[facility]/[place] [address] (ABNORMAL) Troponin (12/08/2021 10:03 PM EDT) athologist Signature Troponin-T 0.92 (H) 0.00 - [facility] 0.00 ng/mL [facility] [...] additional sample may be indicated. Reference: Third [place] Definition of Myocardial Infarction. Journal of the [place] [employer] 2012;60:1581-98 Specimen Anatomical Collection Method Collection Time Receive d Time (Source) Location / / Volume Laterality Blood 12/08/2021 10:03 12/08/2021 PM EDT 10:31 PM EDT Resulting Agency Comment Spec In Lab Iker Cuevas MD CHEMISTRY ORDERABLES Performing Organization Address City/State/[place] [address] (ABNORMAL) POCT Glucose (12/08/2021 8:22 PM EDT) athologist Signature POC Glucose 429 (H) 65 - 199 [facility] mg/dL [facility] [...] Organization Address City/State/[place] [address] (ABNORMAL) POCT Glucose (12/08/2021 7:06 PM EDT) athologist Signature POC Glucose 442 (H) 65 - 199 [facility] mg/dL [facility] LABORATORY Comment: Supplemental ranges: <140 mg/dL before meals <180 mg/dL all other times of the day Specimen Anatomical Collection Method Collection Time Receive d Time (Source) Location / / Volume Laterality Blood 12/08/2021 7:06 PM 2 7:06 EDT PM EDT Iker Cuevas MD POINT OF CARE TEST ORDERABLE S Performing Organization Address City/[facility]/ZIP Code Phon e Number [address] Magnesium (12/08/2021 6:02 PM EDT) athologist Signature Magnesium 0.86 0.69 - 1.07 [facility]/L [facility] LABORATORY Specimen Anatomical Collection Method Collection Time Receive d Time (Source) Location / / Volume Laterality Blood 12/08/2021 6:02 PM 2 6:36 EDT PM EDT Resulting Agency Comment Spec In Lab Iker Cuevas MD CHEMISTRY ORDERABLES Performing Organization Address City/State/[place] [address] (ABNORMAL) Basic Metabolic Panel (non-fasting) (12/08/2021 6:02 PM EDT) athologist Signature Glucose Lvl 392 (H) 65 - [address] [facility] LABORATORY Comment: Diabetes: >=200 mg/dL plus symp toms BUN 41 (H) 10 - 20 mg/dL [facility] LABORATORY Creatinine 1.44 0.80 - 1.50 mg/dL [facility] LABORATORY Sodium 138 135 - 145 [...] Organization Address City/State/ZIP Code Phon e Number [place] [phone] (ABNORMAL) Differential, Automated (12/08/2021 6:02 PM EDT) [facility] gist Method Time Signature Neutrophils % 89.5 % [facility] LABORATORY Neutr Abs (ANC) 13.97 (H) 1.70 - [facility] 6.10 [facility] x10(3)/[facility] LABORATORY Lymphocytes % 3.7 % [facility] LABORATORY Lymphocytes Abs 0.6 (L) 0.9 - 3.2 [facility] x10(3)/[facility] LABORATORY Monocytes % 6.1 % [facility] LABORATORY Monocyte Abs 1.0 (H) 0.3 - 0.9 [facility] x10(3)/[facility] LABORATORY Eosinophils % 0.0 % [facility] LABORATORY Eosinophils Abs 0.0 0.0 - 0.4 [facility] x10(3)/[facility] LABORATORY Basophils % 0.2 % [facility] LABORATORY Basophils Abs 0.0 0.0 - 0.1 [facility] x10(3)/[facility] LABORATORY Immature [...] Gran Abs 0.08 (H) 0.00 - 0.04 x10(3)/[facility] LABORATORY Specimen Anatomical Collection Method Collection Time Receive d Time (Source) Location / / Volume Laterality Blood 12/08/2021 6:02 PM 6:36 EDT PM EDT Resulting Agency Comment Spec In Lab Morgan BROWN HEMATOLOGY ORDERABLES Performing Organization Address City/State/[place] [address] (ABNORMAL) Hemogram (12/08/2021 6:02 PM EDT) Analysis Performed At Patho logist Time Signature WBC 15.6 (H) 4.0 - 9.5 [facility] x10(3)/[facility] LABORATORY RBC 4.05 (L) 4.58 - [facility] 5.54 [facility] x10(6)/[facility] LABORATORY Hemoglobin 11.8 (L) 13.7 - [facility] 16.5 g/dL [facility] LABORATORY Hematocrit 35.8 (L) 40.5 - [facility] 48.5 % [facility] LABORATORY MCV 88.4 82.9 - [facility] 93.[address] [facility] LABORATORY MCH 29.1 27.5 - [facility] 32.[address] [facility] LABORATORY MCHC 33.0 32.0 - [place] [facility] 35.7 g/dL [facility] LABORATORY Platelets 178 145 - 357 [place] x10(3)/[facility] LABORATORY RDWSD 49.3 (H) 36.0 - [place] 45.0 [facility] LABORATORY RDWCV 15.1 (H) 11.4 - [facility] 13.8 % [facility] LABORATORY MPV 10.4 7.6 - 12.9 [facility] LABORATORY nRBC % Auto 0.0 % [facility] LABORATORY nRBC Abs Auto 0.000 0.000 - [place] 0.000 [facility] x10(3)/[facility] LABORATORY Specimen Anatomical Collection Method Collection Time Receive d Time (Source) Location / / Volume Laterality Blood 12/08/2021 6:02 PM 6:36 EDT PM EDT Resulting Agency Comment Spec In Lab Morgan BROWN HEMATOLOGY ORDERABLES Performing Organization Address City/State/ZIP Code Phon e Number [place] [address] (ABNORMAL) Troponin (12/08/2021 6:02 PM EDT) P athologist Signature Troponin-T 0.89 (H) 0.00 - [place] [facility] 0.00 ng/mL [facility] [...] additional sample may be indicated. Reference: Third Belpre Definition of Myocardial Infarction. Journal of the [place] College [employer]iology 2012;60:1581-98 Specimen Anatomical Collection Method Collection Time Receive d Time (Source) Location / / Volume Laterality Blood 12/08/2021 6:02 PM 6:36 EDT PM EDT Resulting Agency Comment Spec In Lab Iker Cuevas MD CHEMISTRY ORDERABLES Performing Organization Address City/State/[place] [address] COVID-19 PCR (12/08/2021 5:00 PM EDT) [facility] Method Time Signature SARS-CoV-2 Not Detected Not Detected [facility] RNA PCR [facility] LABORATORY Comment: This result should [...] using the Simplexa COVID-19 Direct Assay by [employer]ora [employer]pping[employer] marcum as authorized by the FDA issued [...] fact sheets at the following FDA website: https://www.fda.gov/medical-devices/nnvzujpxkff-pelhlic-3103-cinge-07-oorcoeina- nei-wubzvsyfmwimcj-mqlerge-devices/ydmex-kfkfiebjeqy-uwsa SARS-CoV-2 Source [facility] LABORATORY Specimen (Source) Anatomical Collection Method Collection Time Re ceived Time Location / / Volume Laterality Nasopharyngeal Swab 12/08/2021 5:00 12/08 PM EDT 6:03 PM EDT Comment: Symptoms->Surveillance Resulting Agency Comment Spec In Lab Iker Cuevas MD MICROBIOLOGY - GENERAL ORDER [place] Performing Organization Address City/State/[place] [address] EKG 12 Lead (12/08/2021 4:40 PM EDT) Component Value Ref Range Test Analysis Performed Pathologis t Method Time At Signature Ventricular rate 78 BPM MUSE SYSTEM Atrial Rate 78 BPM MUSE SYSTEM P-R Interval 152 ms MUSE SYSTEM QRS Duration 96 ms MUSE SYSTEM Q-T Interval 396 ms MUSE SYSTEM QTC Calculated 451 ms MUSE SYSTEM (Bezet) Calculated P [place] 44 degrees MUSE SYSTEM Calculated R [place] -31 degrees MUSE SYSTEM Calculated T [place] 124 degrees MUSE SYSTEM INTERPRETATION Normal sinus [...] (H) 65 - 199 [facility] mg/dL [facility] [...] Organization Address City/State/[place] [address] documented in this encounter [...] Given 11/23 10:30 AM EDT 300 mcg ([employer]) ONCE PRN, Starting on Wed12/10/21 at 1030, [...] 75 mg 0834 (Given - Provider: Emma Garcia, VAMSI) 0829 (Given - Provider: Lilliana Esteban RN) 75 mg, Oral, DAILY, First dose on Wed at 0900, Until Discontinued, Routine empagliflozin (Jardiance) Tab 10 mg 1004 (Given - Provider: Emma Garcia RN) 10 mg, Oral, DAILY, First dose on Ivis 12/11/21 at 0915, Until Dis continued furosemide (Lasix) (10 mg/mL) injection 80 mg (COMPLET ED) 1100 (Given - Provider: Anthony Fatima, VAMSI) 80 mg, Intravenous, ONCE, 1 dose, On [...] 1717 (Given - Provider: Emma Garcia RN )203 (Given - Provider: Barbara Boogie RN)2346 (Given [...] hours., Routine levothyroxine (Synthroid) tablet 175 mcg 08 (Sep d - Provider: Admin Adt - Reason: Transfer to a Procedural area)0900 (Not Given - Provider: Emma Garcia RN - Reason: Transfer to a Procedural area)1230 (SEP Unhold - Provider: Admin Adt) 0834 (Given - Provider: Emam Garcia RN) 0829 (Given - Provider: Lilliana [...] before cath) 0835 (Given - Provider: Emma Garcai RN) 0828 (Given - Provider: Lilliana Esteban, VAMSI) 100 mg, Oral, DAILY, First dose on Wed at 0900, Until Discontinued, Routine 1230 (SEP Unhold - Provider: Admin Adt) magnesium sulfate 2 g in sterile water 50 mL infusion (COMPLETED) 1043 (New Bag - Provider: Anthony Fatima, RN)1243 (Stopped - Provider: Emma Garcia RN) [...] Emma Garcia, VAMSI)1717 (Given - Provider: Emma Garcia RN) 0001 [...] DO NOT CRUSH OR OPEN, Routine 1230 ([facility] Unhold - Provider: Admin Adt) polyethylene glycoL (Miralax) packet 17 g 0805 (SEP Ho ld - Provider: Admin Adt - Reason: Transfer to a Procedural area)0900 (Not Given - Provider: Emma Garcia RN - Reason: Transfer to a Procedural area)1230 ([facility] Unhold - Provider: Admin Adt) [...] Sean ine 0.9) flush 5 mL 0805 ([facility] Hold - Provider: Admin Adt - Reason: Transfer to a Procedural area)0900 (Not Given - Provider: Emma Garcia RN - Reason: Transfer to a Procedural area)1230 ([facility] Unhold - Provider: Admin Adt)1746 [...] mg 0844 (Given - Provider: Emma Garcia, RN) 0829 (Given - Provider: Lilliana friedman, [...] 12/12/2021 acetaminophen (Tylenol) tablet 650 mg 0805 ([facility] Hold - Provider: Admin Adt - Reason: Transfer to a Procedural area)1230 ([facility] Unhold - Provider: Admin Adt) [...] Routine bisacodyL (Dulcolax) suppository 10 mg 0805 ([facility] Hold - Provider: Admin Adt - Reason: Transfer to a Procedural area)1230 ([facility] Unhold - Provider: Admin Adt) 10 mg, Rectal, DAILY PRN, Starting on 12/09/21 at 1629, Until Wed12/12/21 at 1312, Constipation, Routine dextrose 10% infusion(Linked Group 2) 0805 ([facility] Hold - Provider: Admin Adt - Reason: Transfer to a Procedural area)1230 ([facility] Unhold - Provider: Admin Adt) [...] (CANCELED ) 0907 (Given - Provider: Mendy Pugaty)0918 (Given - Provider: Mendy Pugaty)0933 (Given - Provider: Mendy Pugaty)0952 (Given - Provider: Mendy Schaffer) ONCE PRN, [...] (Intra-Procedure), Routine niCARdipine (Cardene) (100 mcg/mL) dilution (SUPERVISOR HAIRSPRING FABRICATION) (CANCELED) 1030 (Given - Provider: Vitaliy Nobles [...] (BD PosiFlush Normal Sean ine 0.9) flush 5- mL 0805 ([facility] Hold - Provider: Admin [...] episode. & nbsp; For persistent hypoglycemia, con commercial technician longer-acting treatment for the duration of the [...]
Routine documented in this encounter Care Teams Bus And Trolley Inspecting Dispatcher Relationship Specialty Start Date End Date Lovely Vicente MD PCP - General 04/16/[address] [place] [address] documented as of this encounter
--- OUTSIDE RECORDS SUMMARY | 2022-02-27 15:10 | XMS_ITS | Encounter Summary ---
:1945 Author Organization [facility] [place] [address] Care Team Providers Name Role Phone Lovely Vicente MD Primary Care Provider Encounter Details Date Type Department Care Team Description 03/20/2021 Ancillary Procedure Radiology Library [place] [address] [place] [address] [phone] Social History Tobacco Use Types Packs/Day Years [...] Vitaliy Nobles MD [facility] [address] [place], [place] [address] (Wo rk) 06/10/2022 Office Visit Dermatology Laura Scherer MD [facility] DR [address]DERMAT [place], [place] [address] (Wo rk) documented as of [...] Organization Address City/State/ZIP Code Phon e Number [place], [place] documented in this encounter Visit Diagnoses Not on filedocumented in this encounter Care Teams Inflated Pad Buffer Relationship Specialty Start Date End Date Lovely Vicente MD PCP - General 04/16/[address] [place] [address] documented as of this encounter
--- OUTSIDE RECORDS SUMMARY | 2022-02-27 15:10 | XMS_ITS | Encounter Summary ---
:1945 Author Organization [facility] [place] [address] Care Team Providers Name Role Phone Lovely Vicente MD Primary Care Provider Encounter Details Date Type Department Care Team Description 12/07/2021 Ancillary Procedure Radiology Library at Lovely Candelaria MD [facility] [address] [phone] (Wo lissa) [phone] Social History Tobacco Use Types Packs/Day Years [...] [facility] ER [address] [place], [place] [address] (Wo rk) 06/10/2022 Office Visit Dermatology Laura Scherer MD [facility] ER [address]DERMAT [place], [place] [address] (Wo rk) documented [...] Organization Address City/State/ZIP Code Phon e Number [place], [place] documented in this encounter Visit Diagnoses Not on filedocumented in this encounter Care Teams Chair Pad Maker Relationship Specialty Start Date End Date Lovely Vicente MD PCP - General 04/16/[address] [place] [address] documented as of this encounter
--- OUTSIDE RECORDS SUMMARY | 2022-02-27 15:10 | XMS_ITS | Encounter Summary ---
:1945 [place] [address] Care Team Providers Name Role Phone Lovely Vicente MD Primary Care Provider Encounter Details Date Type Department Care Team Description 07/12/2019 Office Visit Dermatology at Selina Garcia, Rigoberto Yarbrough (actinic keratosis); MD SHAY Quick III (seborrheic keratosis); [address] [facility] Multiple benign nevi; [place] [address] History of melanoma [phone] [facility] [place], [place] [address] Social History Tobacco Use Types [...] Cardiology Vitaliy Nobles MD [facility] [address] [place], [place] [address] (Wo rk) 06/10/2022 Office Visit Dermatology Laura Scherer MD [facility] DR [address]DERMAT [place], [place] [address] (Wo rk) documented as of this encounter Visit Diagnoses Diagnosis AK (actinic keratosis) Actinic keratosis SK (seborrheic keratosis) Other seborrheic keratosis Multiple benign nevi Benign neoplasm of skin, site unspecifie d History of melanoma Personal history of malignant melanoma o f skin documented in this encounter Care Teams Coordinator Volunteer Services Relationship Specialty Start Date End Date Lovely Vicente MD PCP - General 04/16/[address] [place] [address] documented as of this encounter
--- OUTSIDE RECORDS SUMMARY | 2022-02-27 15:10 | XMS_ITS | Encounter Summary ---
:1945 Author Organization [facility] [place] [address] Care Team Providers Name Role Phone Lovely Vicente MD Primary Care Provider Reason for Referral Diagnostic Test (Routine) - Closed Specialty Diagnoses / Procedures Referred By Contact Refer red To Contact Cardiology Diagnoses Chronic systolic heart failure Danette Maxwell APRN [facility] Non-Inv Card Lab Procedures Echocardiogram Transthoracic(Leb) [facility] [place] [address] [place] [address] Referral ID Status Reason Start Date Expiration Date Visits V isits Requested Authorized [id number] Closed Specialty 07/17/2019 09/14/2019 1 1 Service Requested Reason for Visit Diagnostic Test (Routine) - Closed Specialty Diagnoses / Procedures Referred By Contact Refer red To Contact Cardiology Diagnoses Chronic systolic heart failure Danette Maxwell APRN [facility] Non-Inv Card Lab Procedures Echocardiogram Transthoracic(Leb) [facility] [place] [address] [place] [address] Referral ID Status Reason Start Date Expiration Date Visits V isits Requested Authorized [id number] Closed Specialty 07/17/2019 09/14/2019 1 1 Service Requested Encounter Details Date Type Department Care Team Description 07/28/2019 Hospital Encounter Non-Invasive Chronic s ystolic heart [place] [address] Social History Tobacco Use Types Packs/Day [...] MD [facility] [address] [place], [place] [address] (Wo rk) 06/10/2022 Office Visit Dermatology Laura Scherer MD [facility] DR [address]-DERMAT [place], [place] [address] (Wo rk) documented as of [...] Mccollum ? (Age): 1945(74y) Med Rec#: ? [id number] ?Sex: ?M ? Site Loc: ? [facility] ?Ht / Wt: ??172(cm)/81(kg) Pt. Loc: ?Echo Lab ?BSA: ?1.94 Study Date: ?? 07/28/2019 ?Pt. Type: Outpatient Tape: ? Referring: MARY ELLEN Reading: Ifeanyi Truong ([id number]) Cadet Deck: Fadumo Flanagan RDCS, FASE Diagnosis: *Chronic systolic [...] E-wave Vmax ?1 ?m/sec ? MV deceleration syqk811.5 ? msec ? MV A-wave Vmax ?1 [...] ? Pulmonic Valve/Qp:Qs ?Value ?Units (Range) ? AK end-diastolic Vma1.1 ?m/sec ? Wall Motion: Segment Name ?Rest ? Base-Anteroseptal ?? Normal ? Base-Anterior ? Normal ? Base-Anterolateral ??Normal ? Base-Posterolateral Normal ? Base-Inferior ? Akinetic ? Base-Inferoseptal ?? Normal ? Mid-Anteroseptal ?Normal ? Mid-Anterior ?Hypokinetic ? Mid-Anterolateral ?? Normal ? Mid-Posterolateral ??Normal ? Mid-Inferior ?Hypokinetic ? Mid-Inferoseptal ?Normal ? [place]-Septal ? Normal ? [place]-Anterior ? Hypokinetic ? [place]-Lateral ?Normal ? [place]-Inferior ? Akinetic ? [place]-Tip ?Hypokinetic ? This report has been electronically sign ed by: _ Ifeanyi Truong M.D. ? 07/28/2019 0 8:38:01 Images reviewed and interpretation elvie hwang [facility] Cardiac Ultrasound Laboratory Procedure Note Ifeanyi Truong MD - 07/28/2019Formatt ing of this note might be different from the original. Procedure: Transthoracic Echocardiogram Patient: NATALYA MCBRIDE(Age): [birth year]74y) Med Rec#: [id number] Sex: M Site Loc: [facility] Ht / Wt: 172(cm)/81(kg) Pt. Loc: Echo Lab BSA: 1.94 Study Date: 07/28/2019 Pt. Type: Outpati ent Tape: Referring: MARY ELLEN Reading: Ifeanyi Truong ([id number]) Cadet Deck: Fadumo Flanagan RDCS, REGINA Diagnosis: *Chronic systolic [...] MV E-wave Vmax 1 m/sec MV deceleration cige585.5 msec MV A-wave Vmax 1 m/sec MV [...] 0.7 ratio Pulmonic Valve/Qp:Qs Value Units (Range) AK end-diastolic Vma1.1 m/sec Wall Motion: Segment Name Rest Base-Anteroseptal Normal Base-Anterior Normal Base-Anterolateral Normal Base-Posterolateral Normal Base-Inferior Akinetic Base-Inferoseptal Normal Mid-Anteroseptal Normal Mid-Anterior Hypokinetic Mid-Anterolateral Normal Mid-Posterolateral Normal Mid-Inferior Hypokinetic Mid-Inferoseptal Normal [place]-Septal Normal [place]-Anterior Hypokinetic [place]-Lateral Normal [place]-Inferior Akinetic [place]-Tip Hypokinetic This report has been electronically sign ed by: _ Ifeanyi Truong M.D. 07/28/2019 08:38:0 1 Images reviewed and interpretation verif ied [facility] Cardiac Ultrasound Laboratory Danette Maxwell APRN [...] Routine documented in this encounter Care Teams Graphics Coordinator Relationship Specialty Start Date End Date Lovely Vicente MD PCP - General 04/16/[address] [place] [address] documented as of this encounter
--- OUTSIDE RECORDS SUMMARY | 2022-02-27 15:10 | XMS_ITS | Encounter Summary ---
:1945 [place] [address] Care Team Providers Name Role Phone Lovely Vicente MD Primary Care Provider Reason for Visit Reason Comments Skin Cancer Examination Encounter Details Date Type Department Care Team Description 03/20/2021 Office Visit Dermatology at [facility] Brennen Rene MD History of melanoma; [facility] History of dysplastic nevus; [address] Multiple benign nevi; [place] [address] [facility] SK (seborrheic keratosis); [phone] RD-DERMATOLOGY [place] (actinic keratosis) [place], [place] [address] Social History Tobacco Use Types [...] no SOCIAL HISTORY 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 Reviewed and signed by: LAURA RENE MD Dermatology [facility] documented in this encounter Plan of Treatment Upcoming Encounters Date Type Specialty Care Team Description 03/26/2022 Office Visit Cardiology Vitaliy Nobles MD [facility] ER [address] [place], [place] [address] (Wo rk) 06/10/2022 Office Visit Dermatology Laura Rene MD [facility] DR [address]DERMAT [facility] [place], [place] [address] (Wo rk) documented as [...] keratosis documented in this encounter Care Teams Waiter Relationship Specialty Start Date End Date Lovely Vicente MD PCP - General 04/16/[address] [place] [address] documented as of this encounter
--- OUTSIDE RECORDS SUMMARY | 2022-02-27 15:10 | XMS_ITS | Encounter Summary ---
:1945 Author Organization [facility] [place] [address] Care Team Providers Name Role Phone Lovely Vicente MD Primary Care Provider Reason for Visit Reason Comments Skin Check Encounter Details Date Type Department Care Team Description 07/06/2018 Office Visit Dermatology at Teja Garcia, Rigoberto Yarbrough (actinic keratosis); MD SHAY Quick III (seborrheic keratosis); [address] [facility] History of melanoma; [place] [address] Skin exam for malignant neoplasm [phone] [facility] [place], [place] [address] Social History Tobacco Use Types [...] surgery in [facility] while he lost several toes, [...] encounter. Rigoberto Garcia MD Section of Dermatology [facility] documented in this encounter Plan of Treatment Upcoming Encounters Date Type Specialty Care Team Description 03/26/2022 Office Visit Cardiology Vitaliy Nobles MD [facility] ER [address] [place], [place] [address] (Wo rk) 06/10/2022 Office Visit Dermatology Laura Scherer MD [facility] [address]DERMAT [place], [place] [address] (Wo rk) documented as of this encounter Visit Diagnoses Diagnosis AK (actinic keratosis) Actinic keratosis SK (seborrheic keratosis) Other seborrheic keratosis History of melanoma Personal history of malignant melanoma o f skin Skin exam for malignant neoplasm Screening for malignant neoplasm of the skin documented in this encounter Care Teams Supervisor [employer] Relationship Specialty Start Date End Date Lovely Vicente MD PCP - General 04/16/[address] [place] [address] documented as of this encounter
--- OUTSIDE RECORDS SUMMARY | 2022-02-27 15:10 | XMS_ITS | Encounter Summary ---
:1945 Author Organization [facility] [place] [address] Care Team Providers Name Role Phone Lovely Vicente MD Primary Care Provider Reason for Visit Reason Onset Date Comments Follow-up 07/13/2018 amiodarone discontin ued Encounter Details Date Type Department Care Team Description 07/13/2018 Telephone Cardiology at [facility] Martha Comer, Follow-up (amiodarone [facility] RN discontin ued) [place] [address] Social History Tobacco Use Types Packs/Day [...] RN - 07/13/2018 8:57 AM EST Per CURRICULUM DEVELOPMENT MANAGER Hans call placed to the home number for the pt. confirmed that the pt is still taking the amiodarone. Pt is to stop the amiodarone. Pt taking it for post op a-fib, therapy was supposed to be for 30 days. Message given to his . She will give him the message and will have him call with any questions. Call placed to the [facility] in [place] to discontinue it there as well. Med list updated. documented in this encounter Plan of Treatment Upcoming Encounters Date Type Specialty Care Team Description 03/26/2022 Office Visit Cardiology Vitaliy Nobles MD [facility] [address] [place], [place] [address] (Wo rk) 06/10/2022 Office Visit Dermatology Laura Scherer MD [facility] DR [address]MAT [place], [place] [address] (Wo rk) documented as of this encounter Visit Diagnoses Not on filedocumented in this encounter Care Teams Maxillofacial Pathology Relationship Specialty Start Date End Date Lovely Vicente MD PCP - General 04/16/[address] [place] [address] documented as of this encounter
--- OUTSIDE RECORDS SUMMARY | 2022-02-27 15:10 | XMS_ITS | Encounter Summary ---
:1945 [place] [address] Care Team Providers Name Role Phone Lovely Vicente MD Primary Care Provider Encounter Details Date Type Department Care Team Description 03/20/2021 Telephone Neurology at [facility] Hugo Gaston MD [facility] [place] [address] [place] [address] [phone] (Wo rk) Social History Tobacco Use Types [...] - 03/20/2021 6:03 PM EDT Call from [facility]. 76 M with h/o [...] Gaston MD Department of Neurology Pager # [phone] documented in this encounter Plan of Treatment Upcoming Encounters Date Type Specialty Care Team Description 03/26/2022 Office Visit Cardiology Vitaliy Nobles MD [facility] [address] [place], [place] [address] (Wo rk) 06/10/2022 Office Visit Dermatology Laura Scherer MD [facility] DR [address] [place], [place] [address] (Wo rk) documented as of this encounter Visit Diagnoses Not on filedocumented in this encounter Care Teams Suggestion Clerk Relationship Specialty Start Date End Date Lovely Vicente MD PCP - General 04/16/[address] [place] [address] documented as of this encounter
--- OUTSIDE RECORDS SUMMARY | 2022-02-27 15:10 | XMS_ITS | Encounter Summary ---
:1945 Author Organization [facility] [place] [address] Care Team Providers Name Role Phone Lovely Vicente MD Primary Care Provider Encounter Details Date Type Department Care Team Description 07/28/2019 Office Visit Cardiology at [facility] Danette Maxwell Chronic systolic heart failu re; [facility] A, STACIE ASHD (arteriosclerotic heart disease); Drive [facility] S/P CABG x 3; [place], [place] MARIA VICTORIA (obstructive sleep apnea) on CPAP; [phone] CARDIOLOGY Mixed hyperlipidemia [phone] [place], [place] [address] Social History Tobacco Use Types [...] in this encounter Progress Notes Danette Maxwell, SOLUTIONS DEVELOPER - 07/28/2019 9:40 AM EST Images from [...] regurgitation present. 07/07/2019 - 07/21/2019 Zio Patch Reagent Tender The patient had a minimum heart [...] K+ 4.5 today 6. Post-op atrial fibrillation [id number] (CHF, HTN, DM, vascular disease, thromboembolism) [...] advised: Refer to EP (Dr. Mcelroy in [place]) 5. Heart Failure Clinic follow up scheduled for: 3 months with proBNP and BMP Danette Maxwell APRN 07/28/2019 documented in this encounter Plan of Treatment Upcoming Encounters Date Type Specialty Care Team Description 03/26/2022 Office Visit Cardiology Vitaliy Nobles MD [facility] ER [address] [place], [place] [address] (Wo rk) 06/10/2022 Office Visit Dermatology Laura Scherer MD [facility] [address]DERMAT [place], [place] [address] (Wo rk) documented as of this encounter Results (ABNORMAL) Basic Metabolic Panel (non-fasting) (07/28/2019 8:36 AM EST) athologist Signature Glucose Lvl 153 65 - 199 [facility] mg/dL [facility] [...] of body mass or the acutely ill. [email or web address] eGFR 81 >=60 mL/min/1.73 m?? [facility] Comment: The eGFR was calculated using the CKD-EP I equation. As with all creatinine based estimates of kidney function, eGFR values calculated with the CKD-EPI equation are not accurate in patients wi th acute kidney failure, extremes of body mass or the acutely ill. [email or web address] [email or web address] Specimen Anatomical Collection Method Collection Time Receive d Time (Source) Location / / Volume Laterality Blood specimen 07/28/2019 8:36 AM 020 8:46 (specimen) EST AM EST Resulting Agency Comment Spec In Lab Danette Maxwell STACIE CHEMISTRY ORDERABLES Performing Organization Address City/State/[place] [address] (ABNORMAL) pro-Brain Natriuretic Peptide [...] Organization Address City/State/[place] [address] documented in this encounter Visit Diagnoses Diagnosis Chronic systolic heart failure ASHD (arteriosclerotic heart disease) Coronary atherosclerosis of unspecified type of vessel, [place] or graft S/P CABG x 3 Postsurgical aortocoronary bypass status MARIA VICTORIA (obstructive sleep apnea) on CPAP Obstructive sleep apnea (adult) (pediatr ic) Mixed hyperlipidemia documented in this encounter Care Teams Automotive Customer Experience Advisor Relationship Specialty Start Date End Date Lovely Vicente MD PCP - General 04/16/[address] [place] [address] documented as of this encounter
--- OUTSIDE RECORDS SUMMARY | 2022-02-27 15:10 | XMS_ITS | Encounter Summary ---
:1945 Author Organization [facility] [place] [address] Care Team Providers Name Role Phone Lovely Vicente MD Primary Care Provider Encounter Details Date Type Department Care Team Description 08/15/2018 Office Visit Cardiology at [facility] Danette Maxwell Chronic systolic heart failu re; [facility] A, BED LABORER Cardiomyopathy, ischemic; [facility] ASCVD (arteriosclerotic card iovascular disease); [place], [place] Essential hypertension; [address] CARDIOLOGY MARIA VICTORIA on CPAP [phone] [place], [place] [address] Social History Tobacco Use Types [...] in this encounter Progress Notes Danette Maxwell, BED LABORER - 08/15/2018 9:00 AM EST Images from [...] is always better at therapy Call to [facility] PT Denies lightheadedness or dizziness Denies [...] K+ 4.6 today 6. Post-op atrial fibrillation AYS2MB4-BCHc 7 (CHF, HTN, DM, vascular disease, thromboembolism) Amiodarone discontinued Continue coumadin INR managed by PCP. 2.1 today 7. PAD 08/06/2017: Right 1st, 2nd, 3rd toe amputation 08/11/2017: Left??femoral arterial access, RLE??angiogram, Balloon angioplasty of R PT with Eleazar 2.5 x 80 10/25/2017: right popliteal-pedal bypass at [facility] 8. Hypothyrodism S/p thyroidectomy for goiter [...] MD [facility] [address] TADEO [place], [place] [address] (Wo rk) 06/10/2022 Office Visit Dermatology Laura Scherer MD [facility] DR TEJA GR-DERMAT OLOGY [place], [place] [address] (Wo rk) documented as of this encounter Results Lipid Panel (08/15/2018 8:04 AM EST) athologist Signature Chol, Total 75 mg/dL [facility] Comment: Lower Risk: <200 mg/dL Average Risk: 200-239 mg/dL Higher Risk: >nj=450 mg/dL Triglycerides 185 mg/dL [facility] Comment: Average Risk/Lower Risk: <150 mg/dL Borderline High Risk: 150-199 mg/dL High Risk: 200-499 mg/dL Very High Risk: >ru=228 mg/dL HDL 32 mg/dL [facility] Comment: Males: ?? Higher Risk: <40 mg/dL Females: ?? HIgher Risk: <50 mg/dL LDL Cholesterol 6 mg/dL [facility] Comment: Lowest Risk: <100 mg/dL Lower Risk: 100-129 mg/dL Borderline High Risk: 130-159 mg/dL High Risk: 160-189 mg/dL Very High Risk: >vl=131 mg/dL Chol/HDL Ratio 2.3 ratio [facility] Lipid Interpretation See Note [facility] Comment: Lipid management should be guided by a p atient? s ASCVD risk, goals and preferences. ACC/AHA Guidelines recommend high intens ity statin if clinical ASCVD or LDL greater than or equal to 190 mg/dL. http://OpenGovurl.com/UNG-XVO-Bcowaqcje Adults aged 40-75 with LDL 70-189 mg/dL should have their 10 year ASCVD risk estimated with the ACC/AHA ASCVD risk es timator http://tools.acc.org/RDHQF-Jffg-Ehmrupxp r/ Statin should be discussed if risk [...] Organization Address City/State/[place] [address] (ABNORMAL) Basic Metabolic Panel (non-fasting) (08/15/2018 8:04 AM EST) P athologist Signature Glucose Lvl 116 65 - 199 [facility] mg/dL [facility] Comment: Diabetes: >=200 mg/dL plus symp toms BUN 21 (H) 10 - 20 mg/dL [facility] Creatinine 1.08 0.80 - 1.50 mg/dL [facility] Sodium 144 135 - 145 [...] 15 mmol/L [facility] Calcium 9.0 8.5 - [...] of body mass or the acutely ill. http://EDITD/[facility] eGFR 79 >=60 mL/min/1.73 m?? [facility] Comment: The eGFR was calculated using the CKD-EP I equation. As with all creatinine based estimates of kidney function, eGFR values calculated with the CKD-EPI equation are not accurate in patients wi th acute kidney failure, extremes of body mass or the acutely ill. http://EDITD/DHMCnkf Specimen Anatomical Collection Method Collection Time Receive d Time (Source) Location / / Volume Laterality Blood specimen 08/15/2018 8:04 AM 019 8:20 (specimen) EST AM EST Resulting Agency Comment Spec In Lab Danette Eliseo Hans QUINONES CHEMISTRY ORDERABLES Performing Organization Address City/State/ZIP Code Phon e Number [address] (ABNORMAL) pro-Brain Natriuretic Peptide (08/15/2018 8:04 AM EST) P athologist Signature ProBNP 1,797 (H) <=125 [facility] pg/mL [facility] Specimen Anatomical Collection Method Collection Time Receive d Time (Source) Location / / Volume Laterality Blood specimen 08/15/2018 8:04 AM 019 8:20 (specimen) EST AM EST Resulting Agency Comment Spec In Lab Danette Eliseo Hans QUINONES CHEMISTRY ORDERABLES Performing Organization Address City/State/ZIP [place] [address] documented in this encounter Visit Diagnoses Diagnosis Chronic systolic heart failure Cardiomyopathy, ischemic Other specified forms of chronic ischemi c heart disease ASCVD (arteriosclerotic cardiovascular d isease) Unspecified cardiovascular disease Essential hypertension Unspecified essential hypertension MARIA VICTORIA on CPAP Obstructive sleep apnea (adult) (pediatr ic) documented in this encounter Care Teams Lead Data Architect Relationship Specialty Start Date End Date Lovely Vicente MD PCP - General 04/16/[address] [place] [address] documented as of this encounter
--- OUTSIDE RECORDS SUMMARY | 2022-02-27 15:10 | XMS_ITS | Encounter Summary ---
:1945 Author Organization [facility] [place] [address] Care Team Providers Name Role Phone Lovely Vicente MD Primary Care Provider Reason for Visit Reason Onset Date Comments Other 03/24/2019 cardiac clearance ne eded Encounter Details Date Type Department Care Team Description 03/24/2019 Telephone Cardiology at [facility] Danette Maxwell, Other (cardiac [facility] CHILDREN'S SERVICE SUPERVISOR clearance needed) [place] [address] CARDIOLOGY [place], [place] [address] (Wo rk) Social History Tobacco [...] AM EDT Leonela from [facility] [place] called requesting cardiac clearance for this patient who is to have a colonoscopy on 04/04/19. He is on anticoagulation and they will need to bridge him. Their phone # [phone], fax# [phone]. Thank you. documented in this encounter Plan of Treatment Upcoming Encounters Date Type Specialty Care Team Description 03/26/2022 Office Visit Cardiology Vitaliy Nobles MD [facility] [address] T[address] [place], [place] [address] (Wo rk) 06/10/2022 Office Visit Dermatology Luara Scherer MD [facility] DR TEJA GR-DERMAT OGY [place], [place] [address] (Wo rk) documented as of this encounter Visit Diagnoses Not on filedocumented in this encounter Care Teams Strategic Advisor Relationship Specialty Start Date End Date Lovely Vicente MD PCP - General 04/16/[address] [place] [address] documented as of this encounter
--- OUTSIDE RECORDS SUMMARY | 2022-02-27 15:10 | XMS_ITS | Encounter Summary ---
:1945 Author Organization [facility] Address [address] [place] [address] Care Team Providers Name Role Phone Lovely Vicente MD Primary Care Provider Encounter Details Date Type Department Care Team Description 01/02/2020 Office Visit Dermatology at [facility] keratoses; Abdelrahman HOOPER MD History of melanoma; [address] [facility] History of dysplastic nevus; [place] [address] Multiple benign nevi; [phone] [facility] Seborrheic yossi [place]; RD-DERMATOLGY Skin exam for malignant neoplasm [place], [place] [address] Social History Tobacco Use Types [...] of Dermatology [facility] documented in this encounter Plan of Treatment Upcoming Encounters Date Type Specialty Care Team Description 03/26/2022 Office Visit Cardiology Vitaliy Nobles MD [facility] [address] TADE[address] [place], [place] [address] (Wo rk) 06/10/2022 Office Visit Dermatology Laura Scherer MD [facility] DR TEJA GR-DERMAT OLOGY [place], [place] [address] (Wo rk) documented as of [...] skin documented in this encounter Care Teams Rn Labor And Delivery Relationship Specialty Start Date End Date Lovely Vicente MD PCP - General 04/16/[address] [place] [address] documented as of this encounter
--- OUTSIDE RECORDS SUMMARY | 2022-02-27 15:10 | XMS_ITS | Encounter Summary ---
:1945 Author Organization [facility] [place] [address] Care Team Providers Name Role Phone Lovely Vicente MD Primary Care Provider Encounter Details Date Type Department Care Team Description 04/18/2018 Laboratory Appointment Lab 3L [facility] [place] [id number] Social History Tobacco Use Types Packs/Day Years [...] Vitaliy Nobles MD [facility] [address] [place], [place] [address] (Wo rk) 06/10/2022 Office Visit Dermatology Laura Scherer MD [facility] DR TEJA GR-DERMAT OLOGY [place], [place] [address] (Wo rk) documented as of [...] Signature Total Protein 7.6 6.1 - 8.0 [facility] RYAN gm/dL [facility]ORATORY Albumin 4.0 3.2 - 5.2 LuckyCalRYAN gm/dL [facility] LABORATORY AST 36 0 - 39 [facility] R[facility] unit/L [facility] ALT 27 0 - 55 [facility] unit/L [facility]ORY Alk Phos 96 40 - 120 [facility] R[facility] unit/L [facility] LABORATORY Total 0.7 0.2 - 1.3 KAT[place] RYAN Bilirubin mg/dL [facility] LABOR[facility]ORY Bili, Direct 0.1 0.0 - 0.3 [facility] R[facility]AN mg/dL [facility]ORY Specimen Anatomical Collection Method Collection Time Receive d Time (Source) Location / / Volume Laterality Blood specimen Venous Draw / 04/18/2018 9:19 AM 2017 9:44 (specimen) Unknown EDT AM EDT Resulting Agency Comment Spec In Lab Danette Maxwell APRN CHEMISTRY ORDERABLES Performing Organization Address City/[facility] [place] [address] TSH (04/18/2018 9:19 AM EDT) athologist Signature TSH 1.77 0.27 - 4.20 [facility] RYAN mlU/ML [facility] Specimen Anatomical Collection Method Collection Time Receive d Time (Source) Location / / Volume Laterality Blood specimen Venous Draw / 04/18/2018 9:19 AM 2017 9:44 (specimen) Unknown EDT AM EDT Resulting Agency Comment Spec In Lab Danette Maxwell APRN CHEMISTRY ORDERABLES Performing Organization Address City/State/[place] [address] (ABNORMAL) Basic Metabolic Panel (non-fasting) (04/18/2018 9:19 AM EDT) P athologist Signature Glucose Lvl 167 65 - 199 [facility] mg/dL [facility] Comment: Diabetes: >=200 mg/dL plus symp toms BUN 18 10 - 20 mg/dL [facility] Creatinine 1.19 0.80 - 1.50 mg/dL [facility] Sodium 147 (H) 135 [...] mmol/L [facility] Anion Gap 23 (H) 5 - 15 mmol/L [facility] Calcium 9.3 8.5 - 10.5 mg/dL [facility] Estimated GFR 61 >=60 mL/min/1.73 m?? [facility] Comment: The eGFR was calculated using the CKD-EP I equation. As with all creatinine based estimates of kidney function, eGFR values calculated with the CKD-EPI equation are not accurate in patients wi th acute kidney failure, extremes of body mass or the acutely ill. http://Podaddies/[facility] CITY[facility] eGFR 70 >=60 mL/min/1.73 m?? [facility] Comment: The eGFR was calculated using the CKD-EP I equation. As with all creatinine based estimates of kidney function, eGFR values calculated with the CKD-EPI equation are not accurate in patients wi th acute kidney failure, extremes of body mass or the acutely ill. http://Podaddies/[facility] CITYnk[facility] Specimen Anatomical Collection Method Collection Time Receive d Time (Source) Location / / Volume Laterality Blood specimen 04/18/2018 9:19 AM 018 9:34 (specimen) EDT AM EDT Resulting Agency Comment Spec In Lab Danette Maxwell STACIE CHEMISTRY ORDERABLES Performing Organization Address City/State/[place] [address] (ABNORMAL) pro-Brain Natriuretic Peptide (04/18/2018 9:19 AM EDT) P athologist Signature ProBNP 2,199 (H) <=125 [facility] pg[facility]mL [facility] Specimen Anatomical Collection Method Collection Time Receive d Time (Source) Location / / Volume Laterality Blood specimen 04/18/2018 9:19 AM 018 9:34 (specimen) EDT AM EDT Resulting Agency Comment Spec In Lab Danette Maxwell STACIE CHEMISTRY ORDERABLES Performing Organization Address City/[facility]/[place] [address] documented in this encounter Visit Diagnoses Diagnosis Chronic systolic heart failure documented in this encounter Care Teams Hand Molder Meat Relationship Specialty Start Date End Date Lovely Vicente MD PCP - General 04/16/15 [address] [place] [address] documented as of this encounter
--- OUTSIDE RECORDS SUMMARY | 2022-02-27 15:11 | XMS_ITS | Encounter Summary ---
:1945 Author Organization [facility] [place] [address] Care Team Providers Name Role Phone Lovely Vicente MD Primary Care Provider Encounter Details Date Type Department Care Team Description 08/25/2017 Telephone Pain Management at [facility] Bueno, [place] [address] Social History Tobacco Use Types Packs/Day [...] Management Center Preauthorization Request Patient: Don Fatima [id number] Fax received from [employer] denying prior authorization for Lidocaine Patches prescribed by Barbra Soares APRN. RX insurance plan: [employer] RX insurance telephone: [phone] Patient Diagnosis: right foot pain secondary to PVD and ischemia ? Previous medications attempted: Tylenol, Tramadol, Dilaudid Authorization/Reference number: [id number] _x_ denied, provider and patient informed _x_ appeal initiated by provider, patient informed Angeles Rodrigez, RN documented in this encounter Plan of Treatment Upcoming Encounters Date Type Specialty Care Team Description 03/26/2022 Office Visit Cardiology Vitaliy Nobles MD [facility] [address] TADE[address] [place], [place] [address] (Wo rk) 06/10/2022 Office Visit Dermatology Laura Scherer MD [facility] DR TEJA GR-DERMAT [place], [place] [address] (Wo rk) documented as of this encounter Visit Diagnoses Not on filedocumented in this encounter Care Teams Biztalk Administrator Relationship Specialty Start Date End Date Lovely Vicente MD PCP - General 04/16/[address] [place] [address] documented as of this encounter
--- OUTSIDE RECORDS SUMMARY | 2022-02-27 15:11 | XMS_ITS | Encounter Summary ---
:1945 Author Organization [facility] [place] [address] Care Team Providers Name Role Phone Lovely Vicente MD Primary Care Provider Reason for Referral Diagnostic Test (Routine) - Closed Specialty Diagnoses / Procedures Referred By Contact Refer red To Contact Cardiology Diagnoses Ischemic cardiomyopathy Acute on chronic systolic congestive heart failure Danette Maxwell APRN [facility] Non-Inv Card Lab Procedures Echocardiogram Transthoracic(Leb) [facility] [place] [address] [place] [address] Referral ID Status Reason Start Date Expiration Date Visits V isits Requested Authorized [id number] Closed Specialty 08/30/2017 08/30/2018 1 1 Service Requested Reason for Visit Diagnostic Test (Routine) - Closed Specialty Diagnoses / Procedures Referred By Contact Refer red To Contact Cardiology Diagnoses Ischemic cardiomyopathy Acute on chronic systolic congestive heart failure Danette Maxwell APRN [facility] Non-Inv Card Lab Procedures Echocardiogram Transthoracic(Leb) [facility] [place] [address] [place] [address] Referral ID Status Reason Start Date Expiration Date Visits V isits Requested Authorized [id number] Closed Specialty 08/30/2017 08/30/2018 1 1 Service Requested Encounter Details Date Type Department Care Team Description 10/07/2017 Hospital Encounter Non-Invasive Ischemic cardiomyopathy; Cardiology Lab Barbara Craig on chronic systolic [place] [address] Social History Tobacco Use Types Packs/Day [...] Cardiology Vitaliy Nobles MD [facility] CARDIOLOGY [place], [place] [address] (Wo rk) 06/10/2022 Office Visit Dermatology Laura Scherer MD [facility] DR TEJA GR-DERMAT [place] [id number] (Wo rk) documented as of this encounter [...] Veda ? (Age): 1945(72y) Med Rec#: ? [id number] ?Sex: ?M ? Site Loc: ? [facility] ?Ht / Wt: ??173(cm)/82(kg) Pt. Loc: ?Echo Lab ?BSA: ?1.96 Study Date: ?? 10/07/2017 ?Pt. Type: Outpatient Tape: ? Referring: Danette Maxwell Reading: Iker Cuevas ([id number]) Conveyor Worker: Yonathan Bocanegra Diagnosis: *ICD-10-PCS Ischemic cardiomyopathy (I2 5.5) *ICD-10-PCS Acute on chronic systolic ( congestive) heart failure (I50.23) Rhythm: ? Sinus BP: ? 150/60 SUMMARY: 1. The left ventricle is probably normal in size. ??The quantitative left ventricular ejection fraction by biplane Oenill's method is 45%. ??There are left ventricular [...] E-wave Vmax ?1.2 ?m/sec ? MV deceleration [id number] ?msec ? MV A-wave Vmax ?1 ?m/sec [...] ? Mid-Inferior ?Hypokinetic ? Mid-Inferoseptal ?Hypokinetic ? [place]-Septal ? Akinetic ? [place]-Anterior ? Hypokinetic ? [place]-Lateral ?Hypokinetic ? [place]-Inferior ? Hypokinetic ? [place]-Tip ?Akinetic ? This report has been electronically sign ed by: _ Iker Cuevas M.D. ? 10/07/2017 11:12:34 Images reviewed and interpretation verif ied [facility] Cardiac Ultrasound Laboratory Procedure Note Iker Cuevas MD - 10/07/2017Formatti ng of this note might be different from the original. Procedure: Transthoracic Echocardiogram Patient: NATALYA MCBRIDE(Age): [birth year]72y) Med Rec#: [id number] Sex: M Site Loc: [facility] Ht / Wt: 173(cm)/82(kg) Pt. Loc: Echo Lab BSA: 1.96 Study Date: 10/07/2017 Pt. Type: Outpati ent Tape: Referring: Danette Maxwell Reading: Iker Cuevas ([id number]) Conveyor Worker: Yonathan Bocanegra Diagnosis: *ICD-10-PCS Ischemic cardiomyopathy (I2 [...] MV E-wave Vmax 1.2 m/sec MV deceleration [id number] msec MV A-wave Vmax 1 m/sec MV [...] Akinetic Mid-Posterolateral Hypokinetic Mid-Inferior Hypokinetic Mid-Inferoseptal Hypokinetic [place]-Septal Akinetic [place]-Anterior Hypokinetic [place]-Lateral Hypokinetic [place]-Inferior Hypokinetic [place]-Tip Akinetic This report has been electronically sign ed by: _ Iker Cuevas M.D. 10/07/2017 11:12 :34 Images reviewed and interpretation elvie hwang [facility] Cardiac Ultrasound Laboratory Danette Maxwell APRN ECHO [...] Routine documented in this encounter Care Teams Intelligence Manager Relationship Specialty Start Date End Date Lovely Vicente MD PCP - General 04/16/[address] [place] [address] documented as of this encounter
--- OUTSIDE RECORDS SUMMARY | 2022-02-27 15:11 | XMS_ITS | Encounter Summary ---
:1945 [place] [address] Care Team Providers Name Role Phone Lovely Vicenet MD Primary Care Provider Encounter Details Date Type Department Care Team Description 08/26/2017 Hospital Encounter Vascular Lab at [facility], Athero embolism of foot, right; [place], [place] Delayed surgi nusrat wound healing, [place] [phone] Social History Tobacco Use Types Packs/Day Years [...] MD [facility] [address] T[address] [place], [place] [address] (Wo rk) 06/10/2022 Office Visit Dermatology Laura Scherer MD [facility] DR [address]-DERMAT OLOGY [place], [place] [address] (Wo rk) documented as [...] Component Value Ref Test Analysis Performed At [facility] Range Method Time Signature VB Text Department: Vascular Surgery Lab VASCUBASE Report Patient: [id number] (DON HOANG) CPT: 96343 ICD10: T81.89XA;I75.021 Referring Physician: ELVER BLOOM ?? [...] encounter documented in this encounter Care Teams Triple Valve Tester Relationship Specialty Start Date End Date Lovely Vicente MD PCP - General 04/16/[address] [place] [address] documented as of this encounter
--- OUTSIDE RECORDS SUMMARY | 2022-02-27 15:11 | XMS_ITS | Encounter Summary ---
:1945 Author Organization [facility] [place] [address] Care Team Providers Name Role Phone Lovely Vicente MD Primary Care Provider Encounter Details Date Type Department Care Team Description 08/19/2017 Hospital Encounter [place] [facility] Martha Teague, S/P CABG x [address] [facility] [place] [address] [place] [address] RD [phone] [facility] [place], [place] [address] (Wo rk) Social History [...] MD [facility] CARDIOLOGY [place], [place] [address] (Wo rk) 06/10/2022 Office Visit Dermatology Laura Scherer MD [facility] DR [address]-DERMAT OLOGY [place], [place] [address] (Wo rk) documented as of [...] status documented in this encounter Care Teams Training Development Director Relationship Specialty Start Date End Date Lovely Vicente MD PCP - General 04/16/[address] [place] [address] documented as of this encounter
--- OUTSIDE RECORDS SUMMARY | 2022-02-27 15:11 | XMS_ITS | Encounter Summary ---
:1945 Author Organization [facility] [place] [address] Care Team Providers Name Role Phone Lovely Vicente MD Primary Care Provider Reason for Visit Reason Comments Follow-up I'm having trouble with the VAC Encounter Details Date Type Department Care Team Description 08/26/2017 Office Visit Vascular Surgery at [facility], STEPHANIE Mercado Atheroembolism of [place], right[place] [facility] [address] Delayed surgical wound healing, initial encounter; [facility] VASCULAR SURG YEHUDA Acute on chronic systolic congestive hea rt failure ; [place], [place] [address] [phone] Social History Tobacco Use Types Packs/Day Years [...] home and into the care of the [facility]. However, [place] [facility] he has [...] SETUP performed by Manny Mcknight MD at [facility] MAIN OR ??? PRO AMPUTATION FOOT, TRANSMETATARSAL Right 08/09/2017 AMPUTATION, TRANSMETATARSAL (WRVU 12.71) performed by Yonathan Smith MD at [facility] MAIN OR ??? PRO CABG, ARTERIAL, SINGLE N/A 07/07/2017 @CABG, USING ARTERIAL GRAFT;SINGLE ARTERIAL GRAFT (WRVU 33.75) performed by Yuan Retana MD at [facility] MAIN OR ??? PRO CABG, ARTERY-VEIN, TWO N/A 07/07/2017 @CABG, TWO VENOUS GRAFTS & ARTERIAL GRAFT (WRVU 7.93) performed by Yuan Retana MD at [facility] MAIN OR ??? PRO COLONOSCOPY, REMV LESN, SNARE 01/16/2014 COLONOSCOPY, POLYPECTOMY, REMOVAL LESION BY SNARE performed by Nohemi Jaimes MD at [facility] ENDOSCOPY ??? PRO DRESSING CHANGE UNDER ANESTHESIA Right 08/11/2017 (MSURG) DRESSING CHANGE (FOR OTHER THAN IVAN) UNDER ANES. (WRVU 0.86) performed by [place] Smith MD at [facility] MAIN OR ??? PRO ENDOSCOPY W/VIDEO-ASST VEIN HARVEST, CABG Right 07/07/2017 ENDOSCOPIC HARVEST VEIN(S) FOR CABG (WRVU 0.31) performed by Yuan Retana MD at [facility] MAIN OR ??? PRO THYROIDECTOMY 03/28/2013 THYROIDECTOMY, TOTAL OR COMPLETE performed by Manny Mcknight MD at [facility] MAIN OR Social Hx: Social History [...] MD [facility] DR TADEO [place], [place] [address] ([facility]) 06/10/2022 Office Visit Dermatology Laura Scherer MD [facility] DR TEJA GR-DERMAT [facility] [place], [place] [address] (Wo rk) documented as of [...] Department: Vascular Surgery Lab VASCUBASE Report Patient: [id number] (GREGORY HOANG) CPT: 38282 ICD10: T81.89XA;I75.021 Referring Physician: ARIK BLOOM ?? [...] Signature Glucose Lvl 98 65 - 199 [facility] mg/dL [facility] Comment: Diabetes: >=200 mg/dL plus symp toms BUN 20 10 - 20 mg/dL [facility] Creatinine 1.17 0.80 [...] mmol/L [facility] Calcium 9.1 8.5 - 10.5 mg/dL [facility] Estimated GFR >60 >=60 [facility] Comment: The reported eGFR should be multiplied b y 1.2 for patients. The MDRD is not an appropriate measure o f renal function for patients with body mass extremes or in patients with acute kidney failure. http://StackSocial.Relead/DHnkdep http://the Shelf/DHMCnkf Specimen Anatomical Collection Method Collection Time Receive d Time (Source) Location / / Volume Laterality Blood specimen 08/26/2017 2:00 PM 018 2:15 (specimen) EST PM EST Resulting Agency Comment Spec In Lab Danette Maxwell STACIE CHEMISTRY ORDERABLES Performing Organization Address City/State/ZIP Code Phon e Number [address] (ABNORMAL) pro-Brain Natriuretic Peptide (08/26/2017 2:00 PM EST) P athologist Signature ProBNP 2,373 (H) <=125 [facility] pg/mL [facility] Specimen Anatomical Collection Method Collection Time Receive d Time (Source) Location / / Volume Laterality Blood specimen 08/26/2017 2:00 PM 018 2:15 (specimen) EST PM EST Resulting Agency Comment Spec In Lab Danette Maxwell STACIE CHEMISTRY ORDERABLES Performing Organization Address City/[facility]/ZIP [place] [address] documented in this encounter Visit Diagnoses Diagnosis Atheroembolism of foot, right Delayed surgical wound healing, initial encounter Acute on chronic systolic congestive hea rt failure Acute on chronic systolic heart failure Ischemic cardiomyopathy Other specified forms of chronic ischemi c heart disease documented in this encounter Care Teams Staff Services Manager Relationship Specialty Start Date End Date Lovely Vicente MD PCP - General 04/16/[address] [place] [address] [address] [place] [address] documented as of this encounter
--- OUTSIDE RECORDS SUMMARY | 2022-02-27 15:11 | XMS_ITS | Encounter Summary ---
:1945 Author Organization [facility] Address [facility] [place] [address] Care Team Providers Name Role Phone Lovely Vicente MD Primary Care Provider Encounter Details Date Type Department Care Team Description 10/07/2017 Office Visit Cardiology at [facility] Danette Maxwell Chronic systolic heart failu re; [facility] A, CURB SETTER S/P CABG x 3; Drive [facility] On amiodarone therapy; [place], [place] Atrial fibrillation, unspecified type; [phone] CARDIOLOGY ASCVD (arteriosclerotic cardiovascular d isease) [phone] [place], [place] [address] Social History Tobacco Use Types [...] - documented in this encounter Progress Notes Proctor Danette A, CURB SETTER - 10/07/2017 11:20 AM EDT ID and [...] 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 [...] by Dr. Espino On IV antibiotics at [facility] Today: Mr. Fatima is accompanied by [...] continue to see Dr. Bains well at [facility] and follow his wound on his right lower extremity. And she will continue to direct antibiotic treatment. Ihave asked that the echocardiogram results be faxed to Dr. Zurita at [facility]. 1. ASCVD Continue ASA, BB [...] and bone removal by Dr. Aguero at [facility]. Currently receiving IV antibiotics at [facility] ? Plan: 1. A review of [...] [facility] [address] TADE[address] [place], [place] [address] (Wo rk) 06/10/2022 Office Visit Dermatology Laura Scherer MD [facility] DR TEJA GR[facility] [place] [address] (Wo rk) documented as of this encounter Results (ABNORMAL) Basic Metabolic Panel (non-fasting) (10/07/2017 8:48 AM EDT) athologist Signature Glucose Lvl 99 65 - 199 [facility] mg/dL [facility] Comment: Diabetes: >=200 mg/dL plus symp toms BUN 27 (H) 10 - 20 mg/dL [facility] Creatinine 1.07 0.80 - 1.50 mg/dL [facility] [...] estions. Chloride 102 98 - 107 mmol/L [facility] CO2 28 22 - 31 mmol/L [facility] Anion Gap 13 5 - 15 mmol/L [facility] Calcium 8.4 (L) 8.5 - 10.5 mg/dL [facility] Estimated GFR >60 >=60 [facility] Comment: The reported eGFR should be multiplied b y 1.2 for patients. The MDRD is not an appropriate measure o f renal function for patients with body mass extremes or in patients with acute kidney failure. http://EzyInsights/DHnkdep http://EzyInsights/DHMCnkf Specimen Anatomical Collection Method Collection Time Receive d Time (Source) Location / / Volume Laterality Blood specimen 10/07/2017 8:48 AM 018 8:50 (specimen) EDT AM EDT Resulting Agency Comment Spec In Lab Danette Maxwell APRN CHEMISTRY ORDERABLES Performing Organization Address City/[facility]/[place] [address] (ABNORMAL) pro-Brain Natriuretic Peptide (10/07/2017 8:48 AM EDT) P athologist Signature ProBNP 1,170 (H) <=125 [facility] pg/mL [facility] Specimen Anatomical Collection Method Collection Time Receive d Time (Source) Location / / Volume Laterality Blood specimen 10/07/2017 8:48 AM 018 8:50 (specimen) EDT AM EDT Resulting Agency Comment Spec In Lab Danette Maxwell APRN CHEMISTRY ORDERABLES Performing Organization Address City/State/[place] [address] documented in this encounter Visit Diagnoses Diagnosis Chronic systolic heart failure S/P CABG x 3 Postsurgical aortocoronary bypass status On amiodarone therapy Atrial fibrillation, unspecified type ASCVD (arteriosclerotic cardiovascular d isease) Unspecified cardiovascular disease documented in this encounter Care Teams Key Person Relationship Specialty Start Date End Date Lovely Vicente MD PCP - General 04/16/[address] [place] [address] documented as of this encounter
--- OUTSIDE RECORDS SUMMARY | 2022-02-27 15:11 | XMS_ITS | Encounter Summary ---
:1945 Author Organization [facility] [place] [address] Care Team Providers Name Role Phone Lovely Vicente MD Primary Care Provider Encounter Details Date Type Department Care Team Description 09/03/2017 Telephone Vascular Surgery at [facility] Ninfa Clark, [place] [address] Social History Tobacco Use Types Packs/Day [...] help with the discomfort of the change. Hygiene Teacher told the [facility] that I would ask [...] Cardiology Vitaliy Nobles MD [facility] ER [address] TADE[address] [place], [place] [address] (Wo rk) 06/10/2022 Office Visit Dermatology Laura Scherer MD [facility] DR TEJA GR[facility] [place] [address] (Wo rk) documented as of this encounter Visit Diagnoses Not on filedocumented in this encounter Care Teams Dry Cans Back Tender Relationship Specialty Start Date End Date Lovely Vicente MD PCP - General 04/16/[address] [place] [address] documented as of this encounter
--- OUTSIDE RECORDS SUMMARY | 2022-02-27 15:11 | XMS_ITS | Encounter Summary ---
:1945 Author Organization [facility] [place] [address] Care Team Providers Name Role Phone Lovely Vicente MD Primary Care Provider Reason for Visit Reason Onset Date Comments Other 11/11/2017 Please call [facility] Encounter Details Date Type Department Care Team Description 11/11/2017 Telephone Cardiology [place] [facility] Danette Maxwell, Other (Please call [facility] AUDIOLOGY DIRECTOR [facility] ) [place] [address] CARDIOLOGY [place], [place] [address] (Wo rk) Social History Tobacco [...] [facility] CARDIOLOGY [place], [place] 0[address] (Wo rk) 06/10/2022 Office Visit Dermatology Laura Scherer MD [facility] DR TEJA GR-DERMAT [place], [place] [address] (Wo rk) documented as of this encounter Visit Diagnoses Not on filedocumented in this encounter Care Teams Curtain Drier Relationship Specialty Start Date End Date Lovely Vicente MD PCP - General 04/16/15 [facility] [address] [place] [address] documented as of this encounter
--- OUTSIDE RECORDS SUMMARY | 2022-02-27 15:11 | XMS_ITS | Encounter Summary ---
:1945 Author Organization [facility] [place] [address] Care Team Providers Name Role Phone Lovely Vicente MD Primary Care Provider Encounter Details Date Type Department Care Team Description 08/19/2017 Office Visit Vascular Surgery at [place], PAD (peripheral artery [facility] BALANCE SHEET ANALYST disease) [facility] [place] VASCULAR SURGERY [address] [place] [address] [phone] Social History Tobacco Use Types Packs/Day Years [...] Vitaliy Nobles MD [facility] CARDIOLOGY [place], [place] 0[address] (Wo rk) 06/10/2022 Office Visit Dermatology Laura Scherer MD [facility] [address] TEJA GR-DERMAT [place], [place] 0[address] (Wo rk) documented as of this encounter Visit Diagnoses Diagnosis PAD (peripheral artery disease) Peripheral vascular disease, unspecified documented in this encounter Care Teams Power Cleaner Operator Relationship Specialty Start Date End Date Lovely Vicente MD PCP - General 04/16/[address] [place] [address] documented as of this encounter
--- OUTSIDE RECORDS SUMMARY | 2022-02-27 15:11 | XMS_ITS | Encounter Summary ---
:1945 Author Organization [facility] [place] [address] Care Team Providers Name Role Phone Lovely Vicente MD Primary Care Provider Encounter Details Date Type Department Care Team Description 10/07/2017 Laboratory Appointment Lab 3L [facility] systolic [facility] [place] [address] Social History Tobacco Use Types Packs/Day Years [...] Nobles MD [facility] [address] [place], [place] [address] (Wo rk) 06/10/2022 Office Visit Dermatology Laura Scherer MD [facility] [address] TEJA GR-DERMAT [place], [place] [address] (Wo rk) documented as [...] Signature Glucose Lvl 99 65 - 199 [facility] mg/dL [facility] Comment: Diabetes: >=200 mg/dL plus symp toms BUN 27 (H) 10 - 20 mg/dL [facility] Creatinine 1.07 0.80 - 1.50 mg/dL [facility] Estimated GFR >60 >=60 [facility] Comment: The reported eGFR should be multiplied b y 1.2 for patients. The MDRD is not an appropriate measure o f renal function for patients with body mass extremes or in patients with acute kidney failure. http://Layer 4 Communications.QR Artist/DHnkdep http://Layer 4 Communications.QR Artist/DHMCnkf Specimen Anatomical Collection Method Collection Time Receive d Time (Source) Location / / Volume Laterality Blood specimen 10/07/2017 8:48 AM 018 8:50 (specimen) EDT AM EDT Resulting Agency Comment Spec In Lab Danette Maxwell APRN CHEMISTRY ORDERABLES Performing Organization Address City/State/ZIP Code Phon e Number [place] [phone] (ABNORMAL) pro-Brain Natriuretic Peptide (10/07/2017 8:48 AM EDT) P athologist Signature ProBNP 1,170 (H) <=125 [facility] pg/mL [facility] Specimen Anatomical Collection Method Collection Time Receive d Time (Source) Location / / Volume Laterality Blood specimen 10/07/2017 8:48 AM 018 8:50 (specimen) EDT AM EDT Resulting Agency Comment Spec In Lab Da[place] Eliseo Maxwell APRN CHEMISTRY ORDERABLES Performing Organization Address City/State/[place] [address] documented in this encounter Visit Diagnoses Diagnosis Chronic systolic heart failure documented in this encounter Care Teams Grape Picker Relationship Specialty Start Date End Date Lovely Vicente MD PCP - General 04/16/[address] [place] [address] documented as of this encounter
--- OUTSIDE RECORDS SUMMARY | 2022-02-27 15:11 | XMS_ITS | Encounter Summary ---
:1945 Author Organization [facility] [place] [address] Care Team Providers Name Role Phone Lovely Vicente MD Primary Care Provider Reason for Visit Reason Comments Follow-up Encounter Details Date Type Department Care Team Description 08/19/2017 Office Visit Cardiac Surgery at [place], Jock S/P C ABG (coronary [facility] N, artery bypass graft) [facility] [place] CARDIOTHORACIC [address] SURGERY [phone] [place], [place] [address] Social History Tobacco Use Types [...] office. Best personal regards, Yuan Retana MD [phone] documented in this encounter Plan of Treatment Upcoming Encounters Date Type Specialty Care Team Description 03/26/2022 Office Visit Cardiology Vitaliy Nobles MD [facility] [address] TADE[address] [place], [place] [address] (Wo rk) 06/10/2022 Office Visit Dermatology Laura Scherer MD [facility] DR TEJA GR-DERMAT [place], [place] [address] (Wo rk) documented as of [...] 454 ms MUSE SYSTEM (Bezet) Calculated P [place] 20 degrees MUSE SYSTEM Calculated R [place] -29 degrees MUSE SYSTEM Calculated T [place] 121 degrees MUSE SYSTEM INTERPRETATION Normal sinus rhythm MUSE SYSTEM Inferior infarct (cited on or before 25-JAN-2013) Anterior 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) T wave abnormality, consider lateral ischemia Abnormal ECG When compared with ECG of 06-AUG-2017 12:37, No signif icant change was found Confirmed by MD Luci, Taurus Braun ([id number]) on 08/19/2017 1 0:37:38 PM Specimen Anatomical [...] status documented in this encounter Care Teams Fisher Hand Line Relationship Specialty Start Date End Date Lovely Vicente MD PCP - General 04/16/[address] [place] [address] documented as of this encounter
--- OUTSIDE RECORDS SUMMARY | 2022-02-27 15:11 | XMS_ITS | Encounter Summary ---
:1945 Author Organization [facility] [place] [address] Care Team Providers Name Role Phone Lovely Vicente MD Primary Care Provider Encounter Details Date Type Department Care Team Description 09/07/2017 Laboratory Appointment Lab 3L [facility] Hx of [facility] [place] [address] Social History Tobacco Use Types Packs/Day Years [...] [facility] ER CARDIOLOGY [place], [place] [address] (Wo rk) 06/10/2022 Office Visit Dermatology Laura Scherer MD [facility] [address] TEJA GR-DERMAT [place], [place] [address] (Wo rk) documented as of [...] PM EST) athologist Signature Thyroglobulin 1.4 <=54.9 [facility] ng/mL [facility] Comment: Thyroglobulin levels may be unreliable [...] City/[facility]/[place] [address] TSH (09/07/2017 2:41 PM EST) athologist Signature TSH 3.93 0.27 - 4.20 [facility] mlU/ML [facility] Specimen Anatomical Collection Method Collection Time Receive d Time (Source) Location / / Volume Laterality Blood specimen 09/07/2017 2:41 PM 018 2:46 (specimen) EST PM EST Resulting Agency Comment Spec In Lab Luz Prescott MD CHEMISTRY ORDERABLES Performing Organization Address City/[facility]/[place] [address] documented in this encounter Visit Diagnoses Diagnosis Hx of papillary thyroid carcinoma Personal history of malignant neoplasm o f thyroid documented in this encounter Care Teams Program Research Specialist Relationship Specialty Start Date End Date Lovely Vicente MD PCP - General 04/16/[address] [place] [address] documented as of this encounter
--- OUTSIDE RECORDS SUMMARY | 2022-02-27 15:11 | XMS_ITS | Encounter Summary ---
:1945 Author Organization [facility] [place] [address] Care Team Providers Name Role Phone Lovely Vicente MD Primary Care Provider Encounter Details Date Type Department Care Team Description 10/05/2017 Unscheduled Cardiology at [facility] RONNIE Sin PATIENT NOT SEEN Encounter [facility] Tamiko Martinez MD [facility] [address] CARDIOLOGY DEPT [phone] [place] [address] Social History Tobacco Use Types Packs/Day Years [...] Vitaliy Nobles MD [facility] ER DR TADEO [place], [place] [address] (Wo rk) 06/10/2022 Office Visit Dermatology Laura Scherer MD [facility] [address] TEJA GR-DERMAT [place], [place] [address] (Wo rk) documented as of this encounter Visit Diagnoses Diagnosis DH PATIENT NOT SEEN documented in this encounter Care Teams Program Planner Relationship Specialty Start Date End Date Lovely Vicente MD PCP - General 04/16/15 [facility] [address] [place] [address] documented as of this encounter
--- OUTSIDE RECORDS SUMMARY | 2022-02-27 15:11 | XMS_ITS | Encounter Summary ---
:1945 Author Organization [place] [address] Care Team Providers Name Role Phone Lovely Vicente MD Primary Care Provider Encounter Details Date Type Department Care Team Description 09/16/2017 Hospital [place] [address] Social History Tobacco Use Types Packs/Day [...] Cardiology Vitaliy Nobles MD [facility] CARDIOLOGY [place], [place] [address] (Wo rk) 06/10/2022 Office Visit Dermatology Laura Scherer MD [facility] DR TEJA GR-DERMAT [place], [place] [address] (Wo rk) documented as of this encounter Procedures Procedure Name Priority Date/Time Associated Diagnosis [facility] SURGICAL PATHOLOGY Routine 09/16/2017 7:28 AM Res ults for this REPORT EST procedure are i n the results section. documented in this encounter Results Surgical Pathology Report (09/16/2017 7:28 AM EST) Component Value Ref Test Analysis Performed At [facility] Range Method Time Signature Surgical [id number] ? Location: [facility] Pathology IRON Report The signing pathologist has (i) examined [...] Henrique Flower Verified: ??09/24/2017 ?Pathologist Performed at: ??-[facility] Dept. [place], [place], [place] CLINICAL INFORMATION Specimen Submitted: A - [...] Organization Address City/State/ZIP Code Phon e Number [place], [place] [id number] [place] [address] documented in this encounter Visit Diagnoses Not on filedocumented in this encounter Care Teams Lasting Room Machine Operator Relationship Specialty Start Date End Date Lovely Vicente MD PCP - General 04/16/[address] [place] [address] documented as of this encounter
--- OUTSIDE RECORDS SUMMARY | 2022-02-27 15:11 | XMS_ITS | Encounter Summary ---
:1945 Author Organization [facility] [place] [address] Care Team Providers Name Role Phone Lovely Vicente MD Primary Care Provider Reason for Referral Consultation (Routine) - Specialty Diagnoses / Procedures Referred By Contact Refer red To Contact [facility] Diagnoses Atheroembolism of foot, right Delayed surgical wound healing, subsequent encounter Aurelia Rivera PA [address] [facility] [place] [address] Referral ID Status Reason Start Date Expiration Date Visits V isits Requested Authorized [id number] Consult, 09/08/2017 03/07/2018 1 1 Test & Treat Reason for Visit Reason Comments Wound Check My foot hurts Encounter Details Date Type Department Care Team Description 09/07/2017 Office Visit Vascular Surgery at MiguelAurelia PA Atheroembolism of foot, right; [facility] [address] [facility] Delayed surgical wound healing, subseque nt encounter [facility] [place] [address] [phone] Social History Tobacco Use Types Packs/Day Years [...] at home for VAC dressing changes from [facility]. Since his last visit his right forefoot [...] SETUP performed by Manny Mcknight MD at [facility] MAIN OR ??? PRO AMPUTATION FOOT, TRANSMETATARSAL Right 08/09/2017 AMPUTATION, TRANSMETATARSAL (WRVU 12.71) performed by Yonathan Smith MD at [facility] MAIN OR ??? PRO CABG, ARTERIAL, SINGLE N/A 07/07/2017 @CABG, USING ARTERIAL GRAFT;SINGLE ARTERIAL GRAFT (WRVU 33.75) performed by Yuan Retana MD at [facility] MAIN OR ??? PRO CABG, ARTERY-VEIN, TWO N/A 07/07/2017 @CABG, TWO VENOUS GRAFTS & ARTERIAL GRAFT (WRVU 7.93) performed by Yuan Retana MD at [facility] MAIN OR ??? PRO COLONOSCOPY, REMV LESN, SNARE 01/16/2014 COLONOSCOPY, POLYPECTOMY, REMOVAL LESION BY SNARE performed by Nohemi Jaimes MD at [facility] ENDOSCOPY ??? PRO DRESSING CHANGE UNDER ANESTHESIA Right 08/11/2017 (MSURG) DRESSING CHANGE (FOR OTHER THAN IVAN) UNDER ANES. (WRVU 0.86) performed by Lamar Smith MD at [facility] MAIN OR ??? PRO ENDOSCOPY W/VIDEO-ASST VEIN HARVEST, CABG Right 07/07/2017 ENDOSCOPIC HARVEST VEIN(S) FOR CABG (WRVU 0.31) performed by Yuan Retana MD at [facility] MAIN OR ??? PRO THYROIDECTOMY 03/28/2013 THYROIDECTOMY, TOTAL OR COMPLETE performed by Manny Mcknight MD at [facility] OR Social Hx: Social History Substance Use [...] Vitaliy Nobles MD [facility] [address] [place], [place] [address] (Wo rk) 06/10/2022 Office Visit Dermatology Laura Scherer MD [facility] [address] [place], [place] [address] (Wo rk) Scheduled Referrals Name Type Priority Associated Diagnoses Order S chedule Referral to Wound Outpatient Referral Routine Atheroembolism o f foot, Ordered: Clinic right 09/08/2017 Delayed surgical wound healing, subsequent encounter documented as of this encounter Visit Diagnoses Diagnosis Atheroembolism of foot, right Delayed surgical wound healing, subseque nt encounter documented in this encounter Care Teams Residential Treatment Counselor Relationship Specialty Start Date End Date Lovely Vicente MD PCP - General 04/16/[address] [place] [address] documented as of this encounter
--- OUTSIDE RECORDS SUMMARY | 2022-02-27 15:11 | XMS_ITS | Encounter Summary ---
:1945 Author Organization [facility] [place] [address] Care Team Providers Name Role Phone Lovely Vicente MD Primary Care Provider Encounter Details Date Type Department Care Team Description 09/06/2017 Orders Only Vascular Surgery at [facility] Ninfa Clark, [facility] [place] [address] Social History Tobacco Use Types Packs/Day [...] [facility] ER CARDIOLOGY [place], [place] [address] (Wo rk) 06/10/2022 Office Visit Dermatology Laura Scherer MD [facility] ER DR TE[address] OLOGY [place], [place] [address] (Wo rk) documented as of this encounter Visit Diagnoses Not on filedocumented in this encounter Care Teams Fixture Repairer Fabricator Relationship Specialty Start Date End Date Lovely Vicente MD PCP - General 04/16/[address] [place] [address] documented as of this encounter
--- OUTSIDE RECORDS SUMMARY | 2022-02-27 15:11 | XMS_ITS | Encounter Summary ---
:1945 Author Organization [facility] [place] [address] Care Team Providers Name Role Phone Lovely Vicente MD Primary Care Provider Encounter Details Date Type Department Care Team Description 11/29/2017 Office Visit Cardiology at [facility] Annette Maxwell Chronic systolic congestive heart failure; [facility] A, PRESSURE VESSEL INSPECTOR ASCVD (arteriosclerotic cardiovascular d isease); [facility] [place][note 2] Cardiomyopathy, ischemic; [place], [place] PAD (peripheral artery disease) [phone] CARDIOLOGY [phone] [place], [place] [address] Social History Tobacco Use Types [...] in this encounter Progress Notes Annette Maxwell, PRESSURE VESSEL INSPECTOR - 11/29/2017 9:20 AM EDT ID and [...] painful and swollen right foot right d/t 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 [...] using left greater saphenous vein (done at [facility]), debridement of [...] ?? 2. Ischemic cardiomyopathy On BB and KIRTSIN-I No spironolactone as K+ has been > [...] x 80 10/25/2017: right popliteal-pedal bypass at [facility] ? Plan: 1. A review of the [...] Nobles MD [facility] [address] [place], [place] [address] (Wo rk) 06/10/2022 Office Visit Dermatology Laura Scherer MD [facility] DR TE[address] GR-DERMAT OLOGY [place], [place] [address] (Wo rk) documented as of this encounter Results Arterial Duplex Leg, Unil (11/29/2017 10:32 AM EDT) Component Value Ref Test Analysis Performed At [facility] Range Method Time Signature VB Text Department: Vascular Surgery Lab VASCUBASE Report Patient: [id number] (GREGORY HOANG) CPT: 16065 ICD10: I72.4;I73.9 Referring Physician: ANNETTE MAXWELL ?? [...] Glucose Lvl 217 (H) 65 - 199 [facility] mg/dL [facility] Comment: Diabetes: >=200 mg/dL plus symp toms BUN 26 (H) 10 - 20 mg/dL [facility] Creatinine 0.96 0.80 - 1.50 mg/dL [facility] Sodium 137 135 - 145 mmol/L [facility] Potassium 4.1 3.5 - 5.0 mmol/L [facility] [...] MEDICAL CENTER LABORATORY Estimated GFR >60 >=60 [facility] Comment: The reported eGFR should be multiplied b y 1.2 for patients. The MDRD is not an appropriate measure o f renal function for patients with body mass extremes or in patients with acute kidney failure. http://Sparq Systems.beRecruited/DHnkdep http://GuardiCore/DHMCnkf Specimen Anatomical Collection Method Collection Time Receive d Time (Source) Location / / Volume Laterality Blood specimen 11/29/2017 8:22 AM 018 8:29 (specimen) EDT AM EDT Resulting Agency Comment Spec In Lab Annette Maxwell APRN CHEMISTRY ORDERABLES Performing Organization Address City/State/[place] [address] (ABNORMAL) pro-Brain Natriuretic Peptide (11/29/2017 8:22 AM EDT) athologist Signature ProBNP 1,769 (H) <=125 [facility] pg/mL [facility] Specimen Anatomical Collection Method Collection Time Receive d Time (Source) Location / / Volume Laterality Blood specimen 11/29/2017 8:22 AM 018 8:29 (specimen) EDT AM EDT Resulting Agency Comment Spec In Lab Annette Maxwell STACIE CHEMISTRY ORDERABLES Performing Organization Address City/State/[place] [address] documented in this encounter Visit Diagnoses Diagnosis Chronic systolic congestive heart failur e Chronic systolic heart failure ASCVD (arteriosclerotic cardiovascular d isease) Unspecified cardiovascular disease Cardiomyopathy, ischemic Other specified forms of chronic ischemi c heart disease PAD (peripheral artery disease) Peripheral vascular disease, unspecified documented in this encounter Care Teams Database Manager Relationship Specialty Start Date End Date Lovely Vicente MD PCP - General 04/16/[address] [place] [address] documented as of this encounter
--- OUTSIDE RECORDS SUMMARY | 2022-02-27 15:11 | XMS_ITS | Encounter Summary ---
:1945 Author Organization [facility] [place] [address] Care Team Providers Name Role Phone Lovely Vicente MD Primary Care Provider Reason for Referral Diagnostic Test (Routine) - Closed Specialty Diagnoses / Procedures Referred By Contact Refer red To Contact Cardiology Diagnoses Ischemic cardiomyopathy Acute on chronic systolic congestive heart failure Danette Maxwell APRN [facility] Non-Inv Card Lab Procedures Echocardiogram Transthoracic(Leb) [facility] [place] [address] [place] [address] Referral ID Status Reason Start Date Expiration Date Visits V isits Requested Authorized [id number] Closed Specialty 08/30/2017 08/30/2018 1 1 Service Requested Encounter Details Date Type Department Care Team Description 08/26/2017 Office Visit Cardiology at [facility] Danette Maxwell Ischemic cardiomyopathy; [facility] STACIE Gomes Acute on chronic systolic congestive hea rt failure ; Drive 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 BOOKING CLERK pseudoaneurysm with embolization to the right [...] Vitaliy Nobles MD [facility] CARDIOLOGY [place], [place] [address] (Wo rk) 06/10/2022 Office Visit Dermatology Laura Scherer MD [facility] [address] OLOGY [place], [place] [address] (Wo rk) documented as of this encounter Results ECHOCARDIOGRAM COMPLETE W CONTRAST (10/07/2017 10:23 AM EDT) athologist Signature EF 45 [facility] Specimen (Source) Anatomical Location Collection Method / Collectio n Time Received Time / Laterality Volume 10/07/2017 Narrative [facility] - 10/07/2017 11:13 AM ED T Procedure: ?Transthoracic Echocardiogram Patient: ?NATALYA Mccollum ? (Age): 1945(72y) Med Rec#: ? [id number] ?Sex: ?M ? Site Loc: ? [facility] ?Ht / Wt: ??173(cm)/82(kg) Pt. Loc: ?Echo Lab ?BSA: ?1.96 Study Date: ?? 10/07/2017 ?Pt. Type: Outpatient Tape: ? Referring: Danette Maxwell Reading: Iker Cuevas ([id number]) Bridge Design Engineer: Yonathan Bocanegra Diagnosis: *ICD-10-PCS Ischemic cardiomyopathy (I2 5.5) *ICD-10-PCS Acute on chronic systolic ( congestive) heart failure (I50.23) Rhythm: ? Sinus BP: ? 150/60 SUMMARY: 1. The left ventricle is probably normal in size. ??The quantitative left ventricular ejection fraction by biplane Oneill's method is 45%. ??There are left ventricular segmental wall sahar on abnormalities present, as shown in the [...] E-wave Vmax ?1.2 ?m/sec ? MV deceleration [id number] ?msec ? MV A-wave Vmax ?1 ?m/sec [...] ? Mid-Inferior ?Hypokinetic ? Mid-Inferoseptal ?Hypokinetic ? Pauline-Septal ? Akinetic ? Pauline-Anterior ? Hypokinetic ? Pauline-Lateral ?Hypokinetic ? Pauline-Inferior ? Hypokinetic ? Pauline-Tip ?Akinetic ? This report has been electronically sign ed by: _ Iker Cuevas M.D. ? 10/07/2017 11:12:34 Images reviewed and interpretation verif ied [facility] Cardiac Ultrasound Laboratory Procedure Note Iker Cuevas MD - 10/07/2017Formatti ng of this note might be different from the original. Procedure: Transthoracic Echocardiogram Patient: NATALYA MCBRIDE(Age): [birth year]72y) Med Rec#: [id number] Sex: M Site Loc: [facility] Ht / Wt: 173(cm)/82(kg) Pt. Loc: Echo Lab BSA: 1.96 Study Date: 10/07/2017 Pt. Type: Outpati ent Tape: Referring: Danette Maxwell Reading: Iekr Cuevas ([id number]) Bridge Design Engineer: Yonathan Bocanegra Diagnosis: *ICD-10-PCS Ischemic cardiomyopathy (I2 [...] MV E-wave Vmax 1.2 m/sec MV deceleration [id number] msec MV A-wave Vmax 1 m/sec MV [...] Akinetic Mid-Posterolateral Hypokinetic Mid-Inferior Hypokinetic Mid-Inferoseptal Hypokinetic Pauline-Septal Akinetic Pauline-Anterior Hypokinetic Pauline-Lateral Hypokinetic Pauline-Inferior Hypokinetic Pauline-Tip Akinetic This report has been electronically sign ed by: _ Iker Cuevas M.D. 10/07/2017 11:12 :34 Images reviewed and interpretation elvie hwang [facility] Cardiac Ultrasound Laboratory Danette Maxwell APRN ECHO ORDERABLES Performing Organization Address City/State/ZIP Code Phon e Number [facility] Basic Metabolic Panel (non-fasting) (08/26/2017 2:00 PM EST) P athologist Signature Glucose Lvl 98 65 - 199 [facility] mg/dL [facility] Comment: Diabetes: >=200 mg/dL plus symp toms BUN 20 10 - 20 mg/dL [facility] Creatinine 1.17 0.80 - 1.50 mg/dL [facility] [...] 15 mmol/L [facility] Calcium 9.1 8.5 - 10.5 mg/dL KATALINA Yarbrough [facility] Estimated GFR >60 >=60 KATALINA Wyatt [facility] Comment: The reported eGFR should be multiplied b y 1.2 for patients. The MDRD is not an appropriate measure o f renal function for patients with body mass extremes or in patients with acute kidney failure. http://Doutíssima/DHnkdep http://Doutíssima/DHMCnkf Specimen Anatomical Collection Method Collection Time Receive d Time (Source) Location / / Volume Laterality Blood specimen 08/26/2017 2:00 PM 018 2:15 (specimen) EST PM EST Resulting Agency Comment Spec In Lab Danette Maxwell STACIE CHEMISTRY ORDERABLES Performing Organization Address City/State/[place] [address] (ABNORMAL) pro-Brain Natriuretic Peptide (08/26/2017 2:00 PM EST) P athologist Signature ProBNP 2,373 (H) <=125 [facility] pg/mL [facility] Specimen Anatomical Collection Method Collection Time Receive d Time (Source) Location / / Volume Laterality Blood specimen 08/26/2017 2:00 PM 018 2:15 (specimen) EST PM EST Resulting Agency Comment Spec In Lab Danette Maxwell STACIE CHEMISTRY ORDERABLES Performing Organization Address City/State/ZIP [facility] [place] [address] documented in this encounter [...] failure documented in this encounter Care Teams Butter Grader Relationship Specialty Start Date End Date Lovely Vicente MD PCP - General 04/16/[address] [place] [address] [address] [place] [address] documented as of this encounter
--- OUTSIDE RECORDS SUMMARY | 2022-02-27 15:11 | XMS_ITS | Encounter Summary ---
:1945 Author Organization [facility] [place] [address] Care Team Providers Name Role Phone Lovely Vicente MD Primary Care Provider Encounter Details Date Type Department Care Team Description 08/30/2017 [facility] [place] VASCULAR SURGERY [address] [place] [address] [phone] Social History Tobacco Use Types Packs/Day Years [...] Smith MD - 08/30/2017 2:00 PM EST [facility] staff: Patient returns. He is [...] MD [facility] [address] [place], [place] [address] (Wo rk) 06/10/2022 Office Visit Dermatology Laura Scherer MD [facility] DR [address] [place], [place] [address] (Wo rk) documented as of this encounter Visit Diagnoses Diagnosis Critical lower limb ischemia Unspecified circulatory system disorder documented in this encounter Care Teams Energy Management Specialist Relationship Specialty Start Date End Date Lovely Vicente MD PCP - General 04/16/[address] [place] [address] documented as of this encounter
--- OUTSIDE RECORDS SUMMARY | 2022-02-27 15:11 | XMS_ITS | Encounter Summary ---
:1945 Author Organization [facility] [place] [address] Care Team Providers Name Role Phone Lovely Vicente MD Primary Care Provider Encounter Details Date Type Department Care Team Description 09/07/2017 Office Visit Endocrinology at [facility] Maria Ines Stallings of [facility] MD [place] [address] CENTER [phone] ENDOCRINOLOGY DEPT [place], [place] [address] Social History Tobacco Use Types [...] MD [facility] ER DR TADE[address] [place], [place] [address] (Wo rk) 06/10/2022 Office Visit Dermatology Laura Scherer MD [facility] MEDICAL [facility] [address] [place], [place] [address] (Wo rk) documented as of this encounter Visit Diagnoses Diagnosis Hx of papillary thyroid carcinoma Personal history of malignant neoplasm o f thyroid documented in this encounter Care Teams Production Associate Relationship Specialty Start Date End Date Lovely Vicente MD PCP - General 04/16/[address] [place] [address] documented as of this encounter
--- OUTSIDE RECORDS SUMMARY | 2022-02-27 15:11 | XMS_ITS | Encounter Summary ---
:1945 Author Organization [facility] [place] [address] Care Team Providers Name Role Phone Lovely Vicente MD Primary Care Provider Encounter Details Date Type Department Care Team Description 10/05/2017 Telephone Cardiology at [facility] Tamiko Sin MD [facility] [place] [address] CARDIOLOGY DEPT [phone] [place], [place] [address] (Wo rk) Social History Tobacco [...] Vitaliy Nobles MD [facility] MEDICAL [facility] ER DR [place]LE [place], [place] [address] (Wo rk) 06/10/2022 Office Visit Dermatology Laura Scherer MD [facility] DR [address]MAT OLOGY [place], [place] [address] (Wo rk) documented as of this encounter Visit Diagnoses Not on filedocumented in this encounter Care Teams Night Patrol Inspector Relationship Specialty Start Date End Date Lovely Vicente MD PCP - General 04/16/[address] [place] [address] [address] [facility] [place] [address] documented as of this encounter
--- OUTSIDE RECORDS SUMMARY | 2022-02-27 15:11 | XMS_ITS | Encounter Summary ---
:1945 Author Organization [facility] [place] [address] Care Team Providers Name Role Phone Lovely Vicente MD Primary Care Provider Encounter Details Date Type Department Care Team Description 11/29/2017 Laboratory Lab 3L Barbara Wiseman systoli c congestive heart failure; Appointment [facility] ASCVD (ar teriosclerotic cardiovascular disease); Hospital Cardiomyopathy, [place] [address] Social History Tobacco Use Types [...] [facility] ER DR TADEO [place], [place] [address] (Wo rk) 06/10/2022 Office Visit Dermatology Laura Scherer MD [facility] ER DR [address]MAT OLOGY [place], [place] [address] (Wo rk) documented as of [...] Signature PT 23.0 (H) 9.4 - 12.5 [facility] LABORATORY INR 2.1 [facility] [...] Organization Address City/State/[place] [address] (ABNORMAL) Basic Metabolic Panel (non-fasting) (11/29/2017 8:22 AM EDT) athologist Signature Glucose Lvl 217 (H) 65 - 199 [facility] mg/dL [facility] Comment: Diabetes: >=200 mg/dL plus symp toms BUN 26 (H) 10 - 20 mg/dL [facility] Creatinine 0.96 0.80 - 1.50 mg/dL [facility] [...] [facility] Estimated GFR >60 >=60 [facility] Comment: The reported eGFR should be multiplied b y 1.2 for patients. The MDRD is not an appropriate measure o f renal function for patients with body mass extremes or in patients with acute kidney failure. http://Yones.Immerse Learning/DHnkdep http://LastRoom/DHMCnkf Specimen Anatomical Collection Method Collection Time Receive d Time (Source) Location / / Volume Laterality Blood specimen 11/29/2017 8:22 AM 018 8:29 (specimen) EDT AM EDT Resulting Agency Comment Spec In Lab Danette Maxwell APRN CHEMISTRY ORDERABLES Performing Organization Address City/State/[place] [address] (ABNORMAL) pro-Brain Natriuretic Peptide (11/29/2017 8:22 AM EDT) P athologist Signature ProBNP 1,769 (H) <=125 [facility] pg/mL [facility] Specimen Anatomical Collection Method Collection Time Receive d Time (Source) Location / / Volume Laterality Blood specimen 11/29/2017 8:22 AM 018 8:29 (specimen) EDT AM EDT Resulting Agency Comment Spec In Lab Danette Maxwell APRN CHEMISTRY ORDERABLES Performing Organization Address City/State/ZIP Code Phon e Number [address] Lavender Tube HOLD (11/29/2017 8:14 AM EDT) [facility] gist Method Time Signature Lavender Hold Sample in [facility] lab. [facility] LABOR[facility]ORY Specimen Anatomical Collection Method Collection Time Receive d Time (Source) Location / / Volume Laterality Blood specimen No Charge / 11/29/2017 8:14 AM 018 8:29 (specimen) Unknown EDT AM EDT Lovely Vicente MD HEMATOLOGY ORDERABLES Performing Organization Address City/[facility]/[place] [address] documented in this encounter Visit Diagnoses Diagnosis Chronic systolic congestive heart failur e Chronic systolic heart failure ASCVD (arteriosclerotic cardiovascular d isease) Unspecified cardiovascular disease Cardiomyopathy, ischemic Other specified forms of chronic ischemi c heart disease documented in this encounter Care Teams Transportation Supervisor Relationship Specialty Start Date End Date Lovely Vicente MD PCP - General 04/16/[address] [place] [address] documented as of this encounter
--- OUTSIDE RECORDS SUMMARY | 2022-02-27 15:11 | XMS_ITS | Encounter Summary ---
:1945 Author Organization [facility] [place] [address] Care Team Providers Name Role Phone Lovely Vicente MD Primary Care Provider Reason for Visit Reason Onset Date Comments VNA Calls 08/30/2017 Encounter Details Date Type Department Care Team Description 08/30/2017 Telephone Vascular Surgery at [facility] Cora Reid RN [facility]NA Calls [facility] [place] [address] Social History Tobacco Use Types Packs/Day [...] EST Caller: Alfonso at [facility] [phone] Reason for call: Changing his wound vac [...] had been in contact with [facility]'s Wound Care Nurse who advised [...] Nobles MD [facility] [address] [place], [place] [address] (Wo rk) 06/10/2022 Office Visit Dermatology Laura Scherer MD [facility] [address] GR[address]DERMAT [facility] [place], [place] [address] (Wo rk) documented as of this encounter Visit Diagnoses Not on filedocumented in this encounter Care Teams Health Services Rn Relationship Specialty Start Date End Date Lovely Vicente MD PCP - General 04/16/[address] [place] [address] documented as of this encounter
--- OUTSIDE RECORDS SUMMARY | 2022-02-27 15:12 | XMS_ITS | Encounter Summary ---
:1945 [place] [address] Care Team Providers Name Role Phone Lovely Vicente MD Primary Care Provider Reason for Visit Auth/Cert Specialty Diagnoses / Procedures Referred By Contact Refer red To Contact Diagnoses Critical lower limb ischemia CELLULITIS RT FOOT Procedures EMERGENCY Referral ID Status Reason Start Date Expiration Date Visits Requ ested Visits Authorized [id number] 1 1 Encounter Details Date Type Department Care Team Description 08/06/2017 - Hospital Encounter 5 Yonathan Oneill lower limb ischemia; 08/16/2017 Su Flores MD Ischemic foot Hospital 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 Patient [...] Dorsalis Pedis (Ankle) Artery ?132 ? 0.94 ??[place]-Biphasic ? Posterior Tibial (Ankle) Artery ??154 ? 1.10 ??[place]-Biphasic ? Fourth Toe ? 67 ?0.48 ?? [...] For any problems or questions please call [phone] ZELDA Smith, video game animator Nurse Clinician For issues on weeknights after 5pm and weekends please call [phone] and ask for the Vascular Fellow semiconductor wafers etcher stripper. General Instructions None Future Appointments and Orders Future Appointments Provider Department Dept Phone 08/26/2017 4:00 PM Aurelia Rivera PA [facility] [place] [phone] 09/07/2017 3:00 PM LAB, THREE L Lab 3L [facility] [phone] 09/07/2017 4:00 PM Luz Prescott MD [facility]ocrinology [facility] [place] [phone] 09/09/2017 8:00 AM Barbra Soares APRN [facility] [place] [phone] Please bring a list of your current [...] For any problems or questions please call [phone] ZELDA Smith, video game animator Nurse Clinician For issues on weeknights after 5pm and weekends please call [phone] and ask for the Vascular Fellow semiconductor wafers etcher stripper. documented in this encounter Medications at Time [...] Note Patient Destination: [facility] ([facility]) [address] [place] [address] Transportation: with (at bedside) Time of Discharge: by 12 noon Level of Care: swing Patient Aware: yes Family Notified: yes Md to call report to: Yissel Quintero TUBE BLOWER already called RN to call report to: [phone] Shirin Wolf Office of Care Management Pager [phone] Shirin Wolf RN - 08/16/2017 10:50 AM EST [facility] has offered pt swing bed. Pt and accept bed. will transport via car. TUBE BLOWER Yissel Quintero aware; d/c paperwork will be completed by 12 noon. [facility] requests pt arrival by 1400 today; TUBE BLOWER, RN, and family aware. TUBE BLOWER called [facility] and was told that they prefer pt to arrive with wound vac dressing applied but clamped. TUBE BLOWER applied new wound vac dressing. RN has [facility] number to call report. PASSR completed; TUBE BLOWER paged to request provider signature in highlighted space. Indigo from [facility] notified via email that home wound vac now cancelled; [facility] has picked up from room and order cancelled. Packet started and provided to clinical unit coordinator. Medicare important message explained to patient, patient signed. Copy provided to patient and signature page to OCM for inclusion in pt EMR. Radha Georges - 08/16/2017 10:34 AM EST Office of Care Management/Shop Foreman Patient Name: Gregory Hoang : 1945 Patient has been offered a swing bed at [facility]. The patient will be transported by private transportation. No MD to MD report necessary Please call Nursing Report to [phone], ask for licensed audiologist. Info to accompany patient: Narcotic Prescriptions Copies of Medication Administration Records and IV sheets for past 10 days. Plan: Shop Foreman will be available to the patient and Burrer Marker Axle-RN and/or Charm Filter Operator Helper for further assistance. Patient will be discharged to: [place] [phone] Radha Powers, Shop Foreman Mira Black, VAMSI - 08/15/2017 10:05 PM EST [address] Flores to ask if he wanted to hold metoprolol dose. BP 95/58. OK to hold this dose Courtney Brito - 08/15/2017 3:26 PM EST Office of Care Management(OCM)/Shop Foreman(RS)/ D/C Planning re : Patient is medically [...] status. 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 Vac [...] patient's referral to: [facility] PHONE: [phone] FAX: [phone] CM spoke with RS who said that [...] rehab. Await recommendations from PT. Covering pager #[phone]. 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 Cutter Down Kaitlin Saha, RN Pager #[phone] Payam Rosales - 08/13/2017 2:37 PM EST Quality Assurance Tech Encounter Note Patient Name: Gregory Hoang : [id number] MR#: [id number] Admit Date: 08/06/2017 1:41 PM Hospital Day 7 days Narrative: Visited to introduce and assess acceptance of Quality Assurance Tech services. Pt was awake, alert, oriented and in chair and family was there. Assessment:Patient coping positively with stresses of illness/hospitalization at this time. Pt says that he is hoping to get better and his family was there. Pt says that he has family care and supportand taking one day at time. Intervention and Outcome: Provided emotional support and encouraging presence. 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 A letter describing our affiliations was reviewed with them and theywere educated about their right to choose where referrals are placed. Patient requests referral to [facility] [employer]. PHONE: [phone] FAX: [phone]. And Home NPWT (Negative Pressure Wound Therapy) aka wound vac device made available to pt. Serial # confirmed. Reviewed [facility] Proof of Delivery/Assignment of Benefits Statement(POD/AOB) Form w patient or authorized agent signing on behalf of patient. Copy of POD/AOB provided to pt and other copy faxed to [employer] @ fax# [phone] Expected date of discharge: 08/12/2017. 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 Address: [address] [place] [address] [place] [address] (home) Mobile: Telephone Information: Referring Provider: No [...] SETUP performed by Manny Mcknight MD at [facility] ??? PRO CABG, ARTERIAL, SINGLE N/A 07/07/2017 @CABG, USING ARTERIAL GRAFT;SINGLE ARTERIAL GRAFT (WRVU 33.75) performed by Yuan Retana MD at [facility] OR ??? PRO CABG, ARTERY-VEIN, TWO N/A 07/07/2017 @CABG, TWO VENOUS GRAFTS & ARTERIAL GRAFT (WRVU 7.93) performed by Yuan Retana MD at [facility] OR ??? PRO COLONOSCOPY, REMV LESN, SNARE 01/16/2014 COLONOSCOPY, POLYPECTOMY, REMOVAL LESION BY SNARE performed by Nohemi Jaimes MD at [facility] ENDOSCOPY ??? PRO ENDOSCOPY W/VIDEO-ASST VEIN HARVEST, CABG Right 07/07/2017 ENDOSCOPIC HARVEST VEIN(S) FOR CABG (WRVU 0.31) performed by Yuan Retana MD at [facility] ??? 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 Heparin gtt continues to run. Pt a/ox4. [...] of : 1945 AGE 72 y.o. Address: [address] [place] [address] [place] [address] (home) Mobile: Telephone Information: Referring Provider: No [...] SETUP performed by Manny Mcknight MD at [facility] ??? PRO CABG, ARTERIAL, SINGLE N/A 07/07/2017 @CABG, USING ARTERIAL GRAFT;SINGLE ARTERIAL GRAFT (WRVU 33.75) performed by Yuan Retana MD at [facility] OR ??? PRO CABG, ARTERY-VEIN, TWO N/A 07/07/2017 @CABG, TWO VENOUS GRAFTS & ARTERIAL GRAFT (WRVU 7.93) performed by Yuan Retana MD at [facility] ??? PRO COLONOSCOPY, REMV LESN, SNARE 01/16/2014 COLONOSCOPY, POLYPECTOMY, REMOVAL LESION BY SNARE performed by Nohemi Jaimes MD at [facility] ENDOSCOPY ??? PRO ENDOSCOPY W/VIDEO-ASST VEIN HARVEST, CABG Right 07/07/2017 ENDOSCOPIC HARVEST VEIN(S) FOR CABG (WRVU 0.31) performed by Yuan Retana MD at [facility] ??? 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 Vascular resident semiconductor wafers etcher stripper and will forward result to the team prior to rounds. 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 Patient [...] SETUP performed by Manny Mcknight MD at [facility] ??? PRO CABG, ARTERIAL, SINGLE N/A 07/07/2017 @CABG, USING ARTERIAL GRAFT;SINGLE ARTERIAL GRAFT (WRVU 33.75) performed by Yuan Retana MD at [facility] ??? PRO CABG, ARTERY-VEIN, TWO N/A 07/07/2017 @CABG, TWO VENOUS GRAFTS & ARTERIAL GRAFT (WRVU 7.93) performed by Yuan Retana MD at [facility] MA[facility] OR ??? PRO COLONOSCOPY, REMV LESN, SNARE 01/16/2014 COLONOSCOPY, POLYPECTOMY, REMOVAL LESION BY SNARE performed by Nohemi Jaimes MD at [facility] ENDOSCOPY ??? PRO ENDOSCOPY W/VIDEO-ASST VEIN HARVEST, CABG Right 07/07/2017 ENDOSCOPIC HARVEST VEIN(S) FOR CABG (WRVU 0.31) performed by Yuan Retana MD at [facility] OR ??? PRO THYROIDECTOMY 03/28/2013 THYROIDECTOMY, TOTAL OR COMPLETE performed by Manny Mcknight MD at [facility] Functional Status/Social Hx: Quit [...] left blue toes with CTA showing R AUTO HAULER pseudoaneurysm (now thrombosed) and occluded ATs bilaterally. [...] 2.5x80 5. Completion RLE angiogram 6. L AUTO HAULER angiogram 7. 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 - L AUTO HAULER angriogram demonstrated: High femoral bifurcation over the proximal half of the femoral head. L AUTO HAULER access in the distal L AUTO HAULER. - Closure device: Mynx Technical Procedure: The [...] for a 45cm 5F Destination. V18 and Oxford and QuickCross catheters were used to select [...] 5F. A stationed picture of the L AUTO HAULER was performed as the patient was noted to have a very high bifurcation. Access appeared in the distal R AUTO HAULER. Closure and sheath removal was performed with [...] PM EST 1440 report called to 5 [place] nurse Tessa AGUSTIN documented in this encounter [...] sit/sit to supine -- Bed Mobility Goal, [place] Level independent -- Bed Mobility Goal, Date [...] days -- Transfer Training Goal, Activity Type blv-rg-pfbdx/xrham-ie-qgr -- Transfer Train Goal, [place] Level conditional independence -- Transfer Train Goal, [...] call cabello within reach, Hourly rounding by RN/BUTCHER MEAT. Bed alarm / Chair alarm. Patient-specific fall [...] Smith MD - 08/15/2017 6:28 PM EST [facility] Operative Note Patient Name: Gregory Hoang : [id number] MR#: [id number] Case Date: 08/09/2017 Surgeon: Surgeon(s) and Role: [...] 2.5x80 5. Completion RLE angiogram 6. L AUTO HAULER angiogram 7. Mynx closure Precautions/Restrictions: fall, sternal [...] feet/ bed -> bathroom). Anticipated Discharge Disposition: [facility] facility, other (see comments) (or swing bed) Pager: [phone] BASSAM ELIAS, PT 08/14/2017 Inpatient Physical Therapy [...] to Achieve by discharge Gait Training Goal, [place] Level conditional independence;set up required Gait Training [...] with [facility] CM Drea Sandhu, VAMSI who said that they do not anticipate any beds over the weekend. Reviewed with patient/ that they need to be aware that patient will need to take the first bed offered at the facilities that they make referrals to. Their choices are: 1- [facility] PHONE: [phone] FAX: [phone] 2- [facility] ([facility]) [address] [place] [address] 3- [facility])([facility]) [address] [place] [address] I have discussed Medicare/Private Insurance [...] RS/CM on Wednesday to follow-up. Covering pager #[phone] for today. Plan of Care - Henrique [...] with additional findings of pseudoaneurysm on R AUTO HAULER and bilateral anterior tibial artery occlusions. Was [...] an outpatient once discharged. Have patient call [phone] to set up an appointment. Follow-up: Dermatology will sign-off for now. Please do not hesitate to contact us if you have any questions orconcerns. Impression and Recommendations discussed with primary team on 08/13/2017. Karo Henderson MD Resident in Dermatology Section of Dermatology, Department of Surgery [facility] Pager [phone] Patient seen and evaluated with staff Linker Up: Halima Cordero MD Section of Dermatology [facility] [...] 2.5x80 5. Completion RLE angiogram 6. L AUTO HAULER angiogram 7. Mynx closure Active Non-Hospital Problems [...] home with home health ([facility] PT[facility]OT) Pager: [phone] YASIR TELLO OT 08/12/2017 Occupational Therapy Rehabilitation [...] 2.5x80 5. Completion RLE angiogram 6. L AUTO HAULER angiogram 7. Mynx closure Past Medical History: [...] with 24/7 assistance and maximal services) Pager: [phone] NICHOLAS MORA, PT 08/12/2017 Physical Therapy Rehabilitation [...] sit/sit to supine -- Bed Mobility Goal, [place] Level independent -- Bed Mobility Goal, Outcome Achieved -- goal ongoing Goal: Gait Training Goal Stand Alone Therapy Goal Outcome: Ongoing (Interventions Implemented as Appropriate) 08/11/17 1310 08/12/17 1510 Gait Training Goal Gait Training Goal, Date Established 08/11/17 -- Gait Training Goal, Time to Achieve 5 - 7 days -- Gait Training Goal, [place] Level conditional independence -- Gait Training Goal, [...] days -- Transfer Training Goal, Activity Type hlp-ag-hbioc/lfvqz-pu-usd -- Transfer Train Goal, [place] Level conditional independence -- Transfer Training Goal, [...] Smith MD - 08/11/2017 2:52 PM EST [facility] Operative Note Patient Name: Gregory Hoang : [id number] MR#: [id number] Case Date: 08/11/2017 Surgeon: Surgeon(s) and Role: [...] 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 Completion RLE angiogram 6. L AUTO HAULER angiogram 7. Mynx closure He is very [...] Anticipated Discharge Disposition: inpatient rehabilitation facility Pager: [phone] LAWRENCE GONZALEZ, PT 08/11/2017 Physical Therapy Rehabilitation [...] to sit/sit to supine Bed Mobility Goal, [place] Level independent Goal: Gait Training Goal Stand Alone Therapy Goal Outcome: Ongoing (Interventions Implemented as Appropriate) 08/11/17 1310 Gait Training Goal Gait Training Goal, Date Established 08/11/17 Gait Training Goal, Time to Achieve 5 - 7 days Gait Training Goal, [place] Level conditional independence Gait Training Goal, Assist [...] 7 days Transfer Training Goal, Activity Type bgv-qz-dsphd/ztkfa-vd-kol Transfer Train Goal, [place] Level conditional independence Plan of [facility] Annetta Sandoval RN - 08/11/2017 7:21 AM [...] call cabello within reach, Hourly rounding by RN/BUTCHER MEAT. Bed alarm / Chair alarm. ? Patient-specific [...] 04/05/2013 Hospitalizations Within the Past 30 Days: [facility] 07/20/2017 Anticipated Length Of Stay (If known): Expected Length of Hospitalization: 5-7 days2-3 days Current Decision-Making Capacity: Alert and oriented x 4 Advance Care Planning: on file Kisha Hoang [facility] [phone] Current Coping/Education/Information Needs: pt and spouse state [...] Health/Prescription Coverage: Primary Insurance: MEDICARE Secondary Insurance: [employer] [facility] Prescription Coverage: See above Preferred Pharmacy: [facility] Other: N/A Primary Care Provider: Lovely Vicente MD [phone] Patient/Caregiver Goals of Treatment: Patient plans to return home when medically ready Potential Needs for Transition of Care: Rehab/SNF: N/A Home Health: [facility]. DME: pt has a cane and [...] of care planning. Kaitlin Saha RN Pager: [phone] Plan of Care - Melba Jaramillo RN [...] Overview Goal: Plan of Care Review 08/08/17 9974 Coping/Psychosocial Plan Of Care Reviewed With patient [...] call cabello within reach, Hourly rounding by RN/BUTCHER MEAT. Bed alarm / Chair alarm. Patient-specific fall [...] at bedside and MD TEAM Carrying pager [phone] contacted (via Radio page) and notified of [...] Nobles MD [facility] ER CARDIOLOGY [place], [place] [address] (Wo rk) 06/10/2022 Office Visit Dermatology Laura Scherer MD [facility] DR TEJA GR-DERMAT OLOGY [place], [place] [address] (Wo rk) documented as of [...] section. TYPE AND SCREEN Routine 08/09/2017 1:10 ([facility]/CGP/SHANDA) AM EST BASIC METABOLIC [...] Signature POC Glucose 160 65 - 199 [facility] mg/dL [facility] Comment: Supplemental [...] Address City/State/Z[place] [address] (ABNORMAL) Differential, Automated (08/16/2017 5:08 AM EST) Patholo gist Method Time Signature Neutrophils % 73.9 % [facility] Neutr Abs (ANC) 5.37 1.70 - [facility] 6.10 [facility] x10(3)/[facility] LABORATORY Lymphocytes % 10.1 % [facility] Lymphocytes Abs 0.7 (L) 0.9 - 3.2 [facility] x10(3)/[facility] LABORATORY Monocytes % 10.1 % [facility] Monocyte Abs 0.7 0.3 - 0.9 [facility] x10(3)/[facility] LABORATORY Eosinophils % 5.1 % [facility] Eosinophils Abs 0.4 0.0 - 0.4 [facility] x10(3)/[facility] LABORATORY Basophils % 0.4 % [facility] Basophils Abs 0.0 0.0 - 0.1 [facility] x10(3)/[facility] LABORATORY Immature Gran % 0.40 % ST [...] Melisa Gran Abs 0.03 0.00 - 0.04 x10(3)/[facility] Specimen Anatomical Collection Method Collection Time Receive d Time (Source) Location / / Volume Laterality Blood specimen 08/16/2017 5:08 AM 018 5:20 (specimen) EST AM EST Resulting Agency Comment Spec In Lab Yonathan Smith MD HEMATOLOGY ORDERABLES Performing Organization Address City/State/[place] [address] (ABNORMAL) Hemogram (08/16/2017 5:08 AM EST) Analysis Performed At Patho logist Time Signature WBC 7.3 4.0 - 9.5 [facility] x10(3)/[facility] LABORATORY RBC 3.36 (L) 4.58 - [facility] 5.54 [facility] x10(6)/[facility] LABORATORY Hemoglobin 9.7 (L) 13.7 - [place] 16.5 gm/dL [facility] Hematocrit 30.3 (L) 40.5 - [place] 48.5 % [facility] MCV 90.2 82.9 - [facility] 93.1 [facility] LABORATORY MCH 28.9 27.5 - [place] 32.1 pg [facility] MCHC 32.0 32.0 - [place] 35.7 gm/dL [facility] Platelets 282 145 - 357 [facility] x10(3)/[facility] LABORATORY RDWSD 53.9 (H) 36.0 - [facility] 45.0 [facility]ORY RDWCV 16.5 (H) 11.4 - [facility] 13.8 % [facility] MPV 9.0 7.6 - 12.9 [facility] LABORATORY nRBC % Auto 0.0 % [facility] nRBC Abs Auto 0.000 0.000 - [facility] 0.000 [facility] x10(3)/[facility] LABORATORY Specimen Anatomical Collection Method Collection Time Receive d Time (Source) Location / / Volume Laterality Blood specimen 08/16/2017 5:08 AM 018 5:20 (specimen) EST AM EST Resulting Agency Comment Spec In Lab Yonathan Smith MD HEMATOLOGY ORDERABLES Performing Organization Address City/State/[place] [address] (ABNORMAL) Basic Metabolic Panel (non-fasting) (08/16/2017 5:08 AM EST) athologist Signature Glucose Lvl 141 65 - 199 [facility] mg/dL [facility] Comment: Diabetes: >=200 mg/dL plus symp toms BUN 29 (H) 10 - 20 mg/dL [facility] Creatinine 1.25 0.80 - 1.50 [...] - 15 mmol/L [facility] Calcium 8.7 8.5 - 10.5 mg/dL [facility] Estimated GFR 57 (L) >=60 [facility] Comment: The reported eGFR should be multiplied b y 1.2 for patients. The MDRD is not an appropriate measure o f renal function for patients with body mass extremes or in patients with acute kidney failure. http://XGear/DHnkdep http://XGear/DHMCnkf Specimen Anatomical Collection Method Collection Time Receive d Time (Source) Location / / Volume Laterality Blood specimen 08/16/2017 5:08 AM 018 5:20 (specimen) EST AM EST Resulting Agency Comment Spec In Lab Yonathan Smith MD CHEMISTRY ORDERABLES Performing Organization Address City/State/ZIP Code Phon e Number [place] [id number] (ABNORMAL) Prothrombin Time (08/16/2017 5:08 AM EST) athologist Signature PT 25.2 (H) 11.8 - 14.0 [facility] LABORATORY INR 2.3 (H) 0.9 - [...] Smith MD HEMATOLOGY ORDERABLES Performing Organization Address City/[facility]/ZIP Code Phon e Number [address] POCT Glucose (08/16/2017 4:09 AM EST) athologist Signature POC Glucose 147 65 - 199 [place] mg/dL [facility] LABORATORY Comment: Supplemental ranges: <140 mg/dL before meals <180 mg/dL all other times of the day Specimen Anatomical Collection Method Collection Time Receive d Time (Source) Location / / Volume Laterality Blood specimen 08/16/2017 4:09 AM 018 4:09 (specimen) EST AM EST Yonathan Smith MD POINT OF CARE TEST ORDERABLE S Performing Organization Address City/[facility]/ZIP Code Phon e Number [address] POCT Glucose (08/15/2017 11:56 PM EST) athologist Signature POC Glucose 176 65 - 199 [place] mg/dL [facility] LABORATORY Comment: Supplemental ranges: <140 mg/dL before meals <180 mg/dL all other times of the day Specimen Anatomical Collection Method Collection Time Receive d Time (Source) Location / / Volume Laterality Blood specimen 08/15/2017 11:56 8 (specimen) PM EST 11:56 PM EST Yonathan Smith MD POINT OF CARE TEST ORDERABLE S Performing Organization Address City/[facility]/ZIP Code Phon e Number [address] POCT Glucose (08/15/2017 8:05 PM EST) athologist Signature POC Glucose 136 65 - 199 [facility] SU mg/dL [facility] LABORATORY Comment: Supplemental [...] Address City/State/[place] [address] (ABNORMAL) POCT Glucose (08/15/2017 [...] Address City/State/[place] [address] POCT Glucose (08/15/2017 12:04 PM EST) athologist Signature POC Glucose 135 65 - 199 [place] mg/dL [facility] [...] Address City/State/[place] [address] POCT Glucose (08/15/2017 7:36 AM EST) athologist Signature POC Glucose 124 65 - 199 [place] mg/dL [facility] [...] City/State/ZIP Code Phon e Number [place] [id number] [facility] LABORATORY Drive (ABNORMAL) Differential, Automated (08/15/2017 6:22 AM EST) [facility] Method Time Signature Neutrophils % 76.1 % [facility] LABORATORY Neutr Abs (ANC) 6.62 (H) 1.70 - [facility] 6.10 [facility] x10(3)/[facility] L LABORATORY Lymphocytes % 9.3 % [facility] LABORATORY Lymphocytes Abs 0.8 (L) 0.9 - 3.2 [facility] x10(3)/[facility] LABORATORY Monocytes % 9.4 % [facility] LABORATORY Monocyte Abs 0.8 0.3 - 0.9 [facility] x10(3)/[facility] LABORATORY Eosinophils % 4.0 % [facility] LABORATORY Eosinophils Abs 0.4 0.0 - 0.4 [facility] x10(3)/[facility] LABORATORY Basophils % 0.6 % [facility] LABORATORY Basophils Abs 0.0 0.0 - 0.1 [facility] x10(3)/[facility] LABORATORY Immature Gran % 0.60 % ST [...] 0.05 (H) 0.00 - 0.04 x10(3)/[facility] LABORATORY Specimen Anatomical Collection Method Collection Time Receive d Time (Source) Location / / Volume Laterality Blood specimen 08/15/2017 6:22 AM 018 6:33 (specimen) EST AM EST Resulting Agency Comment Spec In Lab Yonathan Smith MD HEMATOLOGY ORDERABLES Performing Organization Address City/State/ZIP [place] [address] (ABNORMAL) Hemogram (08/15/2017 6:22 AM EST) Analysis Performed At Patho logist Time Signature WBC 8.7 4.0 - 9.5 [facility] x10(3)/[facility] LABORATORY RBC 3.21 (L) 4.58 - [place] 5.54 [facility] x10(6)/[facility] LABORATORY Hemoglobin 9.1 (L) 13.7 - [facility] 16.5 gm/dL [facility] LAB[facility]ATORY Hematocrit 29.0 (L) 40.5 - [facility] 48.5 % [facility] LABORATORY MCV 90.3 82.9 - [facility]1 [facility] LABORATORY MCH 28.3 27.5 - [facility] 32.1 pg [facility] LABORATORY MCHC 31.4 (L) 32.0 - [facility] 35.7 gm/dL [facility] LABORATORY Platelets 254 145 - 357 [facility] x10(3)/[facility] LABORATORY RDWSD 53.9 (H) 36.0 - [facility] 45.0 [facility] LABORATORY RDWCV 16.3 (H) 11.4 - [facility] 13.8 % [facility] LABORATORY MPV 8.8 7.6 - 12.9 [facility] LABORATORY nRBC % Auto 0.0 % [facility] LABORATORY nRBC Abs Auto 0.000 0.000 - [facility] 0.000 [facility] x10(3)/[facility] LABORATORY Specimen Anatomical Collection Method Collection Time Receive d Time (Source) Location / / Volume Laterality Blood specimen 08/15/2017 6:22 AM 018 6:33 (specimen) EST AM EST Resulting Agency Comment Spec In Lab Yonathan Smith MD HEMATOLOGY ORDERABLES Performing Organization Address City/State/[place] [address] (ABNORMAL) Basic Metabolic Panel (non-fasting) (08/15/2017 6:22 AM EST) P athologist Signature Glucose Lvl 118 65 - 199 [facility] mg/dL [facility] LABORATORY Comment: Diabetes: >=200 mg/dL plus symp toms BUN 27 (H) 10 - 20 mg/dL [facility] LABORATORY Creatinine 1.12 0.80 - 1.50 [...] - 15 mmol/L [facility] LABORATORY Calcium 8.8 8.5 - 10.5 mg/dL [facility] LABORATORY Estimated GFR >60 >=60 [facility] LABORATORY Comment: The reported eGFR should be multiplied b y 1.2 for patients. The MDRD is not an appropriate measure o f renal function for patients with body mass extremes or in patients with acute kidney failure. http://XGear/DHnkdep http://XGear/DHMCnkf Specimen Anatomical Collection Method Collection Time Receive d Time (Source) Location / / Volume Laterality Blood specimen 08/15/2017 6:22 AM 018 6:33 (specimen) EST AM EST Resulting Agency Comment Spec In Lab Yonathan Smith MD CHEMISTRY ORDERABLES Performing Organization Address City/State/ZIP [place] [address] (ABNORMAL) Prothrombin Time (08/15/2017 6:22 AM EST) athologist Signature PT 21.9 (H) 11.8 - 14.0 [facility] LABORATORY INR 1.9 (H) 0.9 - [...] Smith MD HEMATOLOGY ORDERABLES Performing Organization Address City/[facility]/ZIP Code Phon e Number [address] POCT Glucose (08/15/2017 4:33 AM EST) athologist Signature POC Glucose 164 65 - 199 [facility]dL [facility] Comment: Supplemental ranges: <140 mg/dL before meals <180 mg/dL all other times of the day Specimen Anatomical Collection Method Collection Time Receive d Time (Source) Location / / Volume Laterality Blood specimen 08/15/2017 4:33 AM 018 4:33 (specimen) EST AM EST Yonathan Smith MD POINT OF CARE TEST ORDERABLE S Performing Organization Address City/[facility]/ZIP Code Phon e Number [address] POCT Glucose (08/15/2017 12:12 AM EST) athologist Signature POC Glucose 89 65 - 199 [facility] mg/dL [facility] Comment: Supplemental ranges: <140 mg/dL before meals <180 mg/dL all other times of the day Specimen Anatomical Collection Method Collection Time Receive d Time (Source) Location / / Volume Laterality Blood specimen 08/15/2017 12:12 8 (specimen) AM EST 12:12 AM EST Yonathan Smith MD POINT OF CARE TEST ORDERABLE S Performing Organization Address City/[facility]/[place] [address] (ABNORMAL) POCT Glucose (08/14/2017 8:07 PM EST) athologist Signature POC Glucose 204 (H) 65 - 199 [place] mg/dL [facility] LABORATORY Comment: Supplemental [...] Address City/State/[place] [address] POCT Glucose (08/14/2017 5:11 PM EST) athologist Signature POC Glucose 174 65 - 199 [facility]/dL [facility] Comment: Supplemental [...] Address City/State/[place] [address] POCT Glucose (08/14/2017 12:10 PM EST) athologist Signature POC Glucose 141 65 - 199 [place] mg/dL [facility] [...] Address City/State/ZIP Code Phon e Number [address] POCT Glucose (08/14/2017 8:07 AM EST) P athologist Signature POC Glucose 158 65 - 199 [facility] mg/dL [facility] LABORATORY Comment: Supplemental [...] Address City/State/ZIP [place] [address] (ABNORMAL) Differential, Automated (08/14/2017 4:52 AM EST) Patholo gist Method Time Signature Neutrophils % 78.6 % [facility] LABORATORY Neutr Abs (ANC) 7.70 (H) 1.70 - [facility] 6.10 [facility] x10(3)/[facility] LABORATORY Lymphocytes % 7.8 % [facility] LABORATORY Lymphocytes Abs 0.8 (L) 0.9 - 3.2 [facility] x10(3)/[facility] LABORATORY Monocytes % 8.8 % [facility] LABORATORY Monocyte Abs 0.9 0.3 - 0.9 [facility] x10(3)/[facility] LABORATORY Eosinophils % 4.0 % [facility] LABORATORY Eosinophils Abs 0.4 0.0 - 0.4 [facility] x10(3)/[facility] LABORATORY Basophils % 0.5 % [facility] LABORATORY Basophils Abs 0.0 0.0 - 0.1 [facility] x10(3)/[facility] LABORATORY Immature Gran % 0.30 % ST [...] Melisa Gran Abs 0.03 0.00 - 0.04 x10(3)/[facility] LABORATORY Specimen Anatomical Collection Method Collection Time Receive d Time (Source) Location / / Volume Laterality Blood specimen 08/14/2017 4:52 AM 018 5:08 (specimen) EST AM EST Resulting Agency Comment Spec In Lab Yonathan Smith MD HEMATOLOGY ORDERABLES Performing Organization Address City/State/ZIP [place] [address] (ABNORMAL) Hemogram (08/14/2017 4:52 AM EST) Analysis Performed At Patho logist Time Signature WBC 9.8 (H) 4.0 - 9.5 [facility](3[facility] LABORATORY RBC 3.32 (L) 4.58 - [facility] 5.54 [facility] x10(6)/[facility] LABORATORY Hemoglobin 9.5 (L) 13.7 - [facility] 16.5 gm/dL [facility] LABORATORY Hematocrit 30.3 (L) 40.5 - [facility] 48.5 % [facility] LABORATORY MCV 91.3 82.9 - [facility] 93.1 [facility] LABORATORY MCH 28.6 27.5 - [facility] 32.1 pg [facility] LABORATORY MCHC 31.4 (L) 32.0 - [facility] 35.7 gm/dL [facility] LABORATORY Platelets 263 145 - 357 [facility] x10(3)/[facility] RDWSD 54.8 (H) 36.0 - [facility] 45.0 [facility] LABORATORY RDWCV 16.5 (H) 11.4 - [facility] SU 13.8 % [facility] LABORATORY MPV 9.1 7.6 - 12.9 [facility] nRBC % Auto 0.0 % [facility] LABORATORY nRBC Abs Auto 0.000 0.000 - [facility] SU 0.000 [facility] x10(3)/[facility] LABORATORY Specimen Anatomical Collection Method Collection Time Receive d Time (Source) Location / / Volume Laterality Blood specimen 08/14/2017 4:52 AM 018 5:08 (specimen) EST AM EST Resulting Agency Comment Spec In Lab Yonathan Smith MD HEMATOLOGY ORDERABLES Performing Organization Address City/[facility]/ZIP Code Phon e Number [place] [phone]OSP[address] LAB[address]ORY Drive (ABNORMAL) Prothrombin Time (08/14/2017 4:52 AM EST) athologist Signature PT 18.8 (H) 11.8 - 14.0 [facility] LABORATORY INR 1.6 (H) 0.9 - [...] Smith MD HEMATOLOGY ORDERABLES Performing Organization Address City/[facility]/ZIP [place] [address] (ABNORMAL) Basic Metabolic Panel (non-fasting) (08/14/2017 4:52 AM EST) athologist Signature Glucose Lvl 135 65 - 199 [facility] mg/dL [facility] LABORATORY Comment: Diabetes: >=200 mg/dL plus symp toms BUN 25 (H) 10 - 20 mg/dL [facility] LABORATORY Creatinine 1.36 0.80 - 1.50 [...] - 15 mmol/L [facility] LABORATORY Calcium 8.5 8.5 - 10.5 mg/dL [facility] LABORATORY Estimated GFR 52 (L) >=60 [facility] LABORATORY Comment: The reported eGFR should be multiplied b y 1.2 for patients. The MDRD is not an appropriate measure o f renal function for patients with body mass extremes or in patients with acute kidney failure. http://XGear/DHnkdep http://XGear/DHnkf Specimen Anatomical Collection Method Collection Time Receive d Time (Source) Location / / Volume Laterality Blood specimen 08/14/2017 4:52 AM 018 5:08 (specimen) EST AM EST Resulting Agency Comment Spec In Lab Yonathan Smith MD CHEMISTRY ORDERABLES Performing Organization Address City/[facility]/ZIP Code Phon e Number [address] POCT Glucose (08/14/2017 3:56 AM EST) athologist Signature POC Glucose 135 65 - 199 [facility] mg/dL [facility] LABORATORY Comment: Supplemental ranges: <140 mg/dL before meals <180 mg/dL all other times of the day Specimen Anatomical Collection Method Collection Time Receive d Time (Source) Location / / Volume Laterality Blood specimen 08/14/2017 3:56 AM 018 3:56 (specimen) EST AM EST Yonathan Smith MD POINT OF CARE TEST ORDERABLE S Performing Organization Address City/[facility]/ZIP [facility] Phon e Number [address] POCT Glucose (08/13/2017 11:13 PM EST) athologist Signature POC Glucose 118 65 - 199 [facility] mg/dL [facility] LABORATORY Comment: Supplemental ranges: <140 mg/dL before meals <180 mg/dL all other times of the day Specimen Anatomical Collection Method Collection Time Receive d Time (Source) Location / / Volume Laterality Blood specimen 08/13/2017 11:13 8 (specimen) PM EST 11:13 PM EST Yonathan Smith MD POINT OF CARE TEST ORDERABLE S Performing Organization Address City/[facility]/[place] [address] (ABNORMAL) POCT Glucose (08/13/2017 8:08 PM EST) athologist Signature POC Glucose 204 (H) 65 - 199 [place] mg/dL [facility] LABORATORY Comment: Supplemental [...] Address City/State/[place] [address] POCT Glucose (08/13/2017 4:02 PM EST) athologist Signature POC Glucose 145 65 - 199 [place] mg/dL [facility] LABORATORY Comment: Supplemental [...] Address City/State/[place] [address] POCT Glucose (08/13/2017 11:31 AM EST) athologist Signature POC Glucose 179 65 - 199 [place] mg/dL [facility] LABORATORY Comment: Supplemental [...] Address City/State/ZIP Code Phon e Number [address] (ABNORMAL) POCT Glucose (08/13/2017 10:16 AM EST) P athologist Signature POC Glucose 211 (H) 65 - 199 [facility]dL [facility] Comment: Supplemental [...] Address City/State/[place] [address] JULIAN, legs, multiple levels (08/13/2017 7:42 AM EST) Component Value Ref Test Analysis Performed At Patholo gist Range Method Time Signature VB Text Department: Vascular Surgery Lab VASCUBASE Report Patient: [id number] (GREGORY HOANG) CPT: 30321 ICD10: I99.8 Referring Physician: YONATHAN SMITH ?? Indications: s/p R 1,2,3 toe amps with red left foot, need n ew baseline Diabetes mellitus: yes ICD10 Diagnosis Code: I99.8 Findings: Right ?Pressure (mm Hg) ?? JULIAN ??Waveform ?TBI ?? Brachial Artery ?138 ? Dorsalis Pedis (Ankle) Arter y ?132 ? 0.94 ??[place]- Biphasic ? Posterior Tibial (Ankle) Art anila ??154 ? 1.10 ??[place]-Biphasic ? Fourth Toe ? 67 ? 0.48 [...] Glucose 156 65 - 199 [facility] mg/dL [facility] LABORATORY Comment: Supplemental [...] Address City/State/ZIP [place] [address] (ABNORMAL) Differential, Automated (08/13/2017 5:33 AM EST) Patholo gist Method Time Signature Neutrophils % 77.8 % [facility] LABORATORY Neutr Abs (ANC) 7.83 (H) 1.70 - [facility] 6.10 [facility] x10(3)/[facility] L LABORATORY Lymphocytes % 8.4 % [facility] LABORATORY Lymphocytes Abs 0.8 (L) 0.9 - 3.2 [facility] x10(3)/[facility] LABORATORY Monocytes % 8.3 % [facility] LABORATORY Monocyte Abs 0.8 0.3 - 0.9 [facility] x10(3)/[facility] LABORATORY Eosinophils % 4.6 % [facility] LABORATORY Eosinophils Abs 0.5 (H) 0.0 - 0.4 [facility] x10(3)/[facility] LABORATORY Basophils % 0.5 % [facility] LABORATORY Basophils Abs 0.0 0.0 - 0.1 [facility] x10(3)/[facility] LABORATORY Immature Gran % 0.40 [...] Melisa Gran Abs 0.04 0.00 - 0.04 x10(3)/[facility] LABORATORY Specimen Anatomical Collection Method Collection Time Receive d Time (Source) Location / / Volume Laterality Blood specimen 08/13/2017 5:33 AM 018 6:04 (specimen) EST AM EST Resulting Agency Comment Spec In Lab Yonathan Smith MD HEMATOLOGY ORDERABLES Performing Organization Address City/State/ZIP [place] [address] (ABNORMAL) Hemogram (08/13/2017 5:33 AM EST) Analysis Performed At Patho logist Time Signature WBC 10.1 (H) 4.0 - 9.5 [facility] x10(3)/[facility] LABORATORY RBC 3.21 (L) 4.58 - [facility] 5.54 [facility] x10(6)/[facility] LABORATORY Hemoglobin 9.2 (L) 13.7 - [place] 16.5 gm/dL [facility] LABORATORY Hematocrit 29.6 (L) 40.5 - [facility] 48.5 % [facility] LABORATORY MCV 92.2 82.9 - [facility] 93[facility]1 [facility] LABORATORY MCH 28.7 27.5 - [place] [facility] 32.1 pg [facility] LABORATORY MCHC 31.1 (L) 32.0 - [facility] 35.7 gm/dL [facility] LABORATORY Platelets 263 145 - 357 [facility] x10(3)/[facility] LABORATORY RDWSD 54.8 (H) 36.0 - [facility] 45.0 [facility] LABORATORY RDWCV 16.4 (H) 11.4 - [facility] SU 13.8 % [facility] LABORATORY MPV 9.2 7.6 - 12.9 [facility] LABORATORY nRBC % Auto 0.0 % [facility] LABORATORY nRBC Abs Auto 0.000 0.000 - [place] 0.000 [facility] x10(3)/[facility] LABORATORY Specimen Anatomical Collection Method Collection Time Receive d Time (Source) Location / / Volume Laterality Blood specimen 08/13/2017 5:33 AM 018 6:04 (specimen) EST AM EST Resulting Agency Comment Spec In Lab Yonathan Smith MD HEMATOLOGY ORDERABLES Performing Organization Address City/State/ZIP [place] [address] (ABNORMAL) Prothrombin Time (08/13/2017 5:33 AM EST) P athologist Signature PT 17.3 (H) 11.8 - 14.0 [facility] LABORATORY INR 1.4 (H) 0.9 - [...] Address City/State/ZIP [place] [address] (ABNORMAL) Basic Metabolic Panel (non-fasting) (08/13/2017 5:33 AM EST) athologist Signature Glucose Lvl 126 65 - 199 [facility] mg/dL [facility] LABORATORY Comment: Diabetes: >=200 mg/dL plus symp toms BUN 18 10 - 20 mg/dL [facility] LABORATORY Creatinine 1.16 0.80 - 1.50 [...] Anion Gap 12 5 - 15 mmol/L [facility] LABORATORY Calcium 7.9 (L) 8.5 - 10.5 mg/dL [facility] LABORATORY Estimated GFR >60 >=60 [facility] LABORATORY Comment: The reported eGFR should be multiplied b y 1.2 for patients. The MDRD is not an appropriate measure o f renal function for patients with body mass extremes or in patients with acute kidney failure. http://XGear/DHnkdep http://XGear/DHMCnkf Specimen Anatomical Collection Method Collection Time Receive d Time (Source) Location / / Volume Laterality Blood specimen 08/13/2017 5:33 AM 018 6:04 (specimen) EST AM EST Resulting Agency Comment Spec In Lab Yonathan Smith MD CHEMISTRY ORDERABLES Performing Organization Address City/[facility]/ZIP Code Phon e Number [address] POCT Glucose (08/13/2017 4:29 AM EST) athologist Signature POC Glucose 111 65 - 199 [place] mg/dL [facility] LABORATORY Comment: Supplemental ranges: <140 mg/dL before meals <180 mg/dL all other times of the day Specimen Anatomical Collection Method Collection Time Receive d Time (Source) Location / / Volume Laterality Blood specimen 08/13/2017 4:29 AM 018 4:29 (specimen) EST AM EST Yonathan Smith MD POINT OF CARE TEST ORDERABLE S Performing Organization Address City/[facility]/ZIP [facility] Phon e Number [address] POCT Glucose (08/12/2017 11:28 PM EST) athologist Signature POC Glucose 164 65 - 199 [place] mg/dL [facility] LABORATORY Comment: Supplemental ranges: <140 mg/dL before meals <180 mg/dL all other times of the day Specimen Anatomical Collection Method Collection Time Receive d Time (Source) Location / / Volume Laterality Blood specimen 08/12/2017 11:28 8 (specimen) PM EST 11:28 PM EST Yonathan Smith MD POINT OF CARE TEST ORDERABLE S Performing Organization Address City/[facility]/ZIP Code Phon e Number [address] (ABNORMAL) POCT Glucose (08/12/2017 7:40 PM EST) athologist Signature POC Glucose 209 (H) 65 - 199 [facility] SU mg/dL [facility] LABORATORY Comment: Supplemental [...] Address City/State/ZIP Code Phon e Number [address] POCT Glucose (08/12/2017 4:24 PM EST) athologist Signature POC Glucose 161 65 - 199 [place] [facility] mg/dL [facility] LABORATORY Comment: Supplemental [...] Address City/State/ZIP Code Phon e Number [address] POCT Glucose (08/12/2017 12:00 PM EST) athologist Signature POC Glucose 167 65 - 199 [place] mg/dL [facility] LABORATORY Comment: Supplemental [...] Address City/State/ZIP Code Phon e Number [address] POCT Glucose (08/12/2017 7:25 AM EST) athologist Signature POC Glucose 152 65 - 199 [place] [facility] mg/dL [facility] LABORATORY Comment: Supplemental [...] City/State/ZIP Code Phon e Number [place] [id number]OS[address] LAB[address]ORY Drive (ABNORMAL) Differential, Automated (08/12/2017 6:29 AM EST) [facility] Method Time Signature Neutrophils % 78.7 % [facility] LABORATORY Neutr Abs (ANC) 7.94 (H) 1.70 - [facility] 6.10 [facility] x10(3)/[facility] LABORATORY Lymphocytes % 8.8 % [facility] LABORATORY Lymphocytes Abs 0.9 0.9 - 3.2 [facility] [facility] x10(3)/[facility] LABORATORY Monocytes % 7.8 % [facility] LABORATORY Monocyte Abs 0.8 0.3 - 0.9 [facility] x10(3)/[facility] LABORATORY Eosinophils % 3.9 % [facility] LABORATORY Eosinophils Abs 0.4 0.0 - 0.4 [facility] x10(3)/[facility] LABORATORY Basophils % 0.3 % [facility] LABORATORY Basophils Abs 0.0 0.0 - 0.1 [facility] x10(3)/[facility] LABORATORY Immature Gran % 0.50 % ST [...] 0.05 (H) 0.00 - 0.04 x10(3)/[facility] LABORATORY Specimen Anatomical Collection Method Collection Time Receive d Time (Source) Location / / Volume Laterality Blood specimen 08/12/2017 6:29 AM 018 6:38 (specimen) EST AM EST Resulting Agency Comment Spec In Lab Yonathan Smith MD HEMATOLOGY ORDERABLES Performing Organization Address City/State/ZIP Code Phon e Number [place] [id number] HOSPITAL LABORATORY Drive (ABNORMAL) Hemogram (08/12/2017 6:29 AM EST) Analysis Performed At Patho logist Time Signature WBC 10.1 (H) 4.0 - 9.5 [facility] x10(3)/[facility] LABORATORY RBC 3.02 (L) 4.58 - [place] [facility] 5.54 [facility] x10(6)/[facility] LABORATORY Hemoglobin 8.7 (L) 13.7 - [facility] 16.[facility] gm/dL [facility] LABORATORY Hematocrit 28.1 (L) 40.5 - [facility] 48.5 % [facility] LABORATORY MCV 93.0 82.9 - [facility] 93.1 [facility] LABORATORY MCH 28.8 27.5 - [facility] 32.1 pg [facility] LABORATORY MCHC 31.0 (L) 32.0 - [facility] 35.7 gm/dL [facility] LABORATORY Platelets 223 145 - 357 [facility] x10(3)/[facility] LABORATORY RDWSD 56.1 (H) 36.0 - [facility] 45.0 [facility] LABORATORY RDWCV 16.4 (H) 11.4 - [facility] 13.8 % [facility] LABORATORY MPV 9.0 7.6 - 12.9 [facility] LABORATORY nRBC % Auto 0.0 % [facility] LABORATORY nRBC Abs Auto 0.000 0.000 - [facility] 0.000 [facility] x10(3)/[facility] LABORATORY Specimen Anatomical Collection Method Collection Time Receive d Time (Source) Location / / Volume Laterality Blood specimen 08/12/2017 6:29 AM 018 6:38 (specimen) EST AM EST Resulting Agency Comment Spec In Lab Yonathan Smith MD HEMATOLOGY ORDERABLES Performing Organization Address City/State/ZIP Code Ph[place] [address] (ABNORMAL) Prothrombin Time (08/12/2017 6:29 AM EST) P athologist Signature PT 16.1 (H) 11.8 - 14.0 [facility] LABORATORY INR 1.3 (H) 0.9 - [...] Address City/State/Z[place] [address] (ABNORMAL) Basic Metabolic Panel (non-fasting) (08/12/2017 6:29 AM EST) P athologist Signature Glucose Lvl 151 65 - 199 [facility] mg/dL [facility] LABORATORY Comment: Diabetes: >=200 mg/dL plus symp toms BUN 18 10 - 20 mg/dL [facility] LABORATORY Creatinine 1.11 0.80 - 1.50 [...] - 15 mmol/L [facility] LABORATORY Calcium 7.9 (L) 8.5 - 10.5 mg/dL [facility] LABORATORY Estimated GFR >60 >=60 [facility] LABORATORY Comment: The reported eGFR should be multiplied b y 1.2 for patients. The MDRD is not an appropriate measure o f renal function for patients with body mass extremes or in patients with acute kidney failure. http://XGear/DHnkdep http://XGear/DHMCnkf Specimen Anatomical Collection Method Collection Time Receive d Time (Source) Location / / Volume Laterality Blood specimen 08/12/2017 6:29 AM 018 6:38 (specimen) EST AM EST Resulting Agency Comment Spec In Lab Yonathan Smith MD CHEMISTRY ORDERABLES Performing Organization Address City/[facility]/[place] [address] POCT Glucose (08/12/2017 4:08 AM EST) athologist Signature POC Glucose 181 65 - 199 [facility] LABORATORY Comment: Supplemental ranges: <140 mg/dL before meals <180 mg/dL all other times of the day Specimen Anatomical Collection Method Collection Time Receive d Time (Source) Location / / Volume Laterality Blood specimen 08/12/2017 4:08 AM 018 4:08 (specimen) EST AM EST Yonathan Smith MD POINT OF CARE TEST ORDERABLE S Performing Organization Address City/[facility]/[place] [address] (ABNORMAL) POCT Glucose (08/12/2017 12:17 AM EST) athologist Signature POC Glucose 221 (H) 65 - 199 [facility] mg/dL [facility] LABORATORY Comment: Supplemental ranges: <140 mg/dL before meals <180 mg/dL all other times of the day Specimen Anatomical Collection Method Collection Time Receive d Time (Source) Location / / Volume Laterality Blood specimen 08/12/2017 12:17 8 (specimen) AM EST 12:17 AM EST Yonathan Smith MD POINT OF CARE TEST ORDERABLE S Performing Organization Address City/[facility]/[place] [address] (ABNORMAL) POCT Glucose (08/11/2017 8:52 PM EST) athologist Signature POC Glucose 221 (H) 65 - 199 [place] mg/dL [facility] LABORATORY Comment: Supplemental [...] Address City/State/[place] [address] POCT Glucose (08/11/2017 5:59 PM EST) athologist Signature POC Glucose 169 65 - 199 [facility] SU mg/dL [facility] LABORATORY Comment: Supplemental ranges: <140 mg/dL before meals <180 mg/dL all other times of the day Specimen Anatomical Collection Method Collection Time Receive d Time (Source) Location / / Volume Laterality Blood specimen 08/11/2017 5:59 PM 018 5:59 (specimen) EST PM EST Yonathan Smith MD POINT OF CARE TEST ORDERABLE S Performing Organization Address City/[facility]/[place] [address] (ABNORMAL) POCT Glucose (08/11/2017 4:08 PM EST) athologist Signature POC Glucose 240 (H) 65 - 199 [facility] mg/dL [facility] LABORATORY Comment: Supplemental [...] Address City/State/[place] [address] POCT Glucose (08/11/2017 12:04 PM EST) athologist Signature POC Glucose 182 65 - 199 [facility]dL [facility] LABORATORY Comment: Supplemental [...] Address City/State/ZIP Code Phon e Number [address] POCT Glucose (08/11/2017 7:31 AM EST) athologist Signature POC Glucose 156 65 - 199 [facility]dL [facility] LABORATORY Comment: Supplemental [...] Address City/State/ZIP Code Phon e Number [address] (ABNORMAL) Differential, Automated (08/11/2017 6:16 AM EST) [facility] gist Method Time Signature Neutrophils % 83.7 % [facility] LABORATORY Neutr Abs (ANC) 10.76 (H) 1.70 - [facility] 6.10 [facility] x10(3)/[facility] L LABORATORY Lymphocytes % 6.0 % [facility] LABORATORY Lymphocytes Abs 0.8 (L) 0.9 - 3.2 [facility] x10(3)/[facility] LABORATORY Monocytes % 7.5 % [facility] LABORATORY Monocyte Abs 1.0 (H) 0.3 - 0.9 [facility] x10(3)/[facility] LABORATORY Eosinophils % 2.0 % [facility] LABORATORY Eosinophils Abs 0.3 0.0 - 0.4 [facility] x10(3)/[facility] LABORATORY Basophils % 0.3 % [facility] LABORATORY Basophils Abs 0.0 0.0 - 0.1 [facility] x10(3)/[facility] LABORATORY Immature Gran % 0.50 % ST [...] Address City/State/Z[place] [address] (ABNORMAL) Hemogram (08/11/2017 6:16 AM EST) Analysis Performed At Patho logist Time Signature WBC 12.9 (H) 4.0 - 9.5 [facility] x10(3)/[facility] LABORATORY RBC 3.28 (L) 4.58 - [facility] SU 5.54 [facility] x10(6)/[facility] LABORATORY Hemoglobin 9.5 (L) 13.7 - [facility] 16.5 gm/dL [facility] LABORATORY Hematocrit 29.8 (L) 40.5 - [facility] SU 48.5 % [facility] LABORATORY MCV 90.9 82.9 - [facility] 93.1 fL [facility] LABORATORY MCH 29.0 27.5 - [place] [facility] 32.1 pg [facility] LABORATORY MCHC 31.9 (L) 32.0 - [facility] 35.7 gm/dL [facility] LABORATORY Platelets 236 145 - 357 [facility] x10(3)/[facility] LABORATORY RDWSD 53.5 (H) 36.0 - [facility] SU 45.0 [facility] LABORATORY RDWCV 16.3 (H) 11.4 - [facility] 13.8 % [facility] LABORATORY MPV 8.8 7.6 - 12.9 [facility] LABORATORY nRBC % Auto 0.0 % [facility] LABORATORY nRBC Abs Auto 0.000 0.000 - [facility] 0.000 [facility] x10(3)/[facility] LABORATORY Specimen Anatomical Collection Method Collection Time Receive d Time (Source) Location / / Volume Laterality Blood specimen 08/11/2017 6:16 AM 018 6:24 (specimen) EST AM EST Resulting Agency Comment Spec In Lab Yonathan Smith MD HEMATOLOGY ORDERABLES Performing Organization Address City/[facility] Phon e Number [address] (ABNORMAL) Prothrombin Time (08/11/2017 6:16 AM EST) P athologist Signature PT 15.5 (H) 11.8 - 14.0 [facility] LABORATORY INR 1.3 (H) 0.9 - [...] Smith MD HEMATOLOGY ORDERABLES Performing Organization Address City/[facility] Phon e Number [address] Basic Metabolic Panel (non-fasting) (08/11/2017 6:16 AM EST) P athologist Signature Glucose Lvl 139 65 - 199 [facility] mg/dL [facility] LABORATORY Comment: Diabetes: >=200 mg/dL plus symp toms BUN 12 10 - 20 mg/dL [facility] LABORATORY Creatinine 0.91 0.80 - 1.50 [...] - 15 mmol/L [facility] LABORATORY Calcium 8.5 8.5 - 10.5 mg/dL [facility] LABORATORY Estimated GFR >60 >=60 [facility] LABORATORY Comment: The reported eGFR should be multiplied b y 1.2 for patients. The MDRD is not an appropriate measure o f renal function for patients with body mass extremes or in patients with acute kidney failure. http://XGear/DHnkdep http://XGear/DHMCnkf Specimen Anatomical Collection Method Collection Time Receive d Time (Source) Location / / Volume Laterality Blood specimen 08/11/2017 6:16 AM 018 6:24 (specimen) EST AM EST Resulting Agency Comment Spec In Lab Yonathan Smith MD CHEMISTRY ORDERABLES Performing Organization Address City/State/ZIP [place] [address] POCT Glucose (08/11/2017 4:07 AM EST) P athologist Signature POC Glucose 162 65 - 199 [facility] mg/dL [facility] LABORATORY Comment: Supplemental [...] Address City/State/[place] [address] POCT Glucose (08/10/2017 11:59 PM EST) athologist Signature POC Glucose 166 65 - 199 [place] mg/dL [facility] LABORATORY Comment: Supplemental [...] Address City/State/[place] [address] POCT Glucose (08/10/2017 8:12 PM EST) athologist Signature POC Glucose 156 65 - 199 [place] mg/dL [facility] LABORATORY Comment: Supplemental [...] Address City/State/[place] [address] (ABNORMAL) POCT Glucose (08/10/2017 4:42 PM EST) athologist Signature POC Glucose 211 (H) 65 - 199 [place] mg/dL [facility] LABORATORY Comment: Supplemental [...] Address City/State/Z[place] [address] (ABNORMAL) Differential, Automated (08/10/2017 2:30 PM EST) [facility] Method Time Signature Neutrophils % 87.6 % [facility] LABORATORY Neutr Abs (ANC) 9.90 (H) 1.70 - [facility] 6.10 [facility] x10(3)/[facility] LABORATORY Lymphocytes % 4.3 % [facility] LABORATORY Lymphocytes Abs 0.5 (L) 0.9 - 3.2 [facility] x10(3)/[facility] LABORATORY Monocytes % 6.0 % [facility] LABORATORY Monocyte Abs 0.7 0.3 - 0.9 [facility] x10(3)/[facility] LABORATORY Eosinophils % 1.1 % [facility] LABORATORY Eosinophils Abs 0.1 0.0 - 0.4 [facility] x10(3)/[facility] LABORATORY Basophils % 0.4 % [facility] LABORATORY Basophils Abs 0.0 0.0 - 0.1 [facility] x10(3)/[facility] LABORATORY Immature Gran % 0.60 % ST [...] 0.07 (H) 0.00 - 0.04 x10(3)/[facility] LABORATORY Specimen Anatomical Collection Method Collection Time Receive d Time (Source) Location / / Volume Laterality Blood specimen 08/10/2017 2:30 PM 018 2:48 (specimen) EST PM EST Resulting Agency Comment Spec In Lab Yonathan Smith MD HEMATOLOGY ORDERABLES Performing Organization Address City/State/Z[place] [address] (ABNORMAL) Hemogram (08/10/2017 2:30 PM EST) Analysis Performed At Patho logist Time Signature WBC 11.3 (H) 4.0 - 9.5 [facility] x[facility](3[facility] LABORATORY RBC 3.13 (L) 4.58 - [place] [facility] 5.54 [facility] x10(6)/[facility] LABORATORY Hemoglobin 8.9 (L) 13.7 - [facility] 16.[facility] gm/dL [facility] LABORATORY Hematocrit 28.4 (L) 40.5 - [facility] 48.5 % [facility] LABORATORY MCV 90.7 82.9 - [facility] 93.1 [facility] LABORATORY MCH 28.4 27.5 - [facility] 32.1 pg [facility] LABORATORY MCHC 31.3 (L) 32.0 - [place] [facility] 35.7 gm/dL [facility] LABORATORY Platelets 213 145 - 357 [facility] x10(3)/[facility] LABORATORY RDWSD 53.7 (H) 36.0 - [facility] 45.0 [facility] LABORATORY RDWCV 16.4 (H) 11.4 - [facility] 13.8 % [facility] LABORATORY MPV 8.9 7.6 - 12.9 [facility] nRBC % Auto 0.0 % [facility] LABORATORY nRBC Abs Auto 0.000 0.000 - [facility] SU 0.000 [facility] x10(3)/[facility] LABORATORY Specimen Anatomical Collection Method Collection Time Receive d Time (Source) Location / / Volume Laterality Blood specimen 08/10/2017 2:30 PM 018 2:48 (specimen) EST PM EST Resulting Agency Comment Spec In Lab Yonathan Smith MD HEMATOLOGY ORDERABLES Performing Organization Address City/State/ZIP [place] [address] (ABNORMAL) POCT Glucose (08/10/2017 1:50 PM EST) athologist Signature POC Glucose 243 (H) 65 - 199 [facility] mg/dL [facility] LABORATORY Comment: Supplemental [...] Address City/State/ZIP Code Phon e Number [address] POCT Glucose (08/10/2017 11:21 AM EST) athologist Signature POC Glucose 156 65 - 199 [facility]/dL [facility] LABORATORY Comment: Supplemental [...] Address City/State/ZIP Code Phon e Number [address] (ABNORMAL) Differential, Automated (08/10/2017 10:28 AM EST) [facility] gist Method Time Signature Neutrophils % 85.3 % [facility] LABORATORY Neutr Abs (ANC) 9.43 (H) 1.70 - [facility] 6.10 [facility] x10(3)/[facility] L LABORATORY Lymphocytes % 5.5 % [facility] LABORATORY Lymphocytes Abs 0.6 (L) 0.9 - 3.2 [facility] x10(3)/[facility] LABORATORY Monocytes % 5.9 % [facility] LABORATORY Monocyte Abs 0.6 0.3 - 0.9 [facility] x10(3)/[facility] LABORATORY Eosinophils % 2.1 % [facility] LABORATORY Eosinophils Abs 0.2 0.0 - 0.4 [facility] x10(3)/[facility] LABORATORY Basophils % 0.4 % [facility] LABORATORY Basophils Abs 0.0 0.0 - 0.1 [facility] x10(3)/[facility] LABORATORY Immature Gran % 0.80 % ST [...] 0.09 (H) 0.00 - 0.04 x10(3)/[facility] LABORATORY Specimen Anatomical Collection Method Collection Time Receive d Time (Source) Location / / Volume Laterality Blood specimen 08/10/2017 10:28 8 (specimen) AM EST 10:35 AM EST Resulting Agency Comment Spec In Lab Yonathan Smith MD HEMATOLOGY ORDERABLES Performing Organization Address City/State/[place] [address] (ABNORMAL) Hemogram (08/10/2017 10:28 AM EST) Analysis Performed At Patho logist Time Signature WBC 11.0 (H) 4.0 - 9.5 [facility] x10(3)/[facility] LABORATORY RBC 3.02 (L) 4.58 - [facility] SU 5.54 [facility] x10(6)/[facility] LABORATORY Hemoglobin 8.8 (L) 13.7 - [facility] 16.5 gm/dL [facility] LABORATORY Hematocrit 28.1 (L) 40.5 - [facility] SU 48.5 % [facility] LABORATORY MCV 93.0 82.9 - [facility] 93.1 fL [facility] LABORATORY MCH 29.1 27.5 - [place] [facility] 32.1 pg [facility] LABORATORY MCHC 31.3 (L) 32.0 - [facility] 35.7 gm/dL [facility] LABORATORY Platelets 207 145 - 357 [facility] x10(3)/[facility] LABORATORY RDWSD 55.3 (H) 36.0 - [facility] 45.0 [facility] RDWCV 16.4 (H) 11.4 - [place] 13.8 % [facility] MPV 9.0 7.6 - 12.9 [facility] LABORATORY nRBC % Auto 0.0 % [facility] nRBC Abs Auto 0.000 0.000 - [place] [facility] 0.000 [facility] x10(3)/[facility] LABORATORY Specimen Anatomical Collection Method Collection Time Receive d Time (Source) Location / / Volume Laterality Blood specimen 08/10/2017 10:28 8 (specimen) AM EST 10:35 AM EST Resulting Agency Comment Spec In Lab Yonathan Smith MD HEMATOLOGY ORDERABLES Performing Organization Address City/State/Z[place] [address] VS Angiogram/intervention (vascular) (08/10/2017 [...] 2.5x80 5. Completion RLE angiogram 6. L AUTO HAULER angiogram 7. 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 L AUTO HAULER access in the distal L AUTO HAULER. - Closure device: Mynx Technical Procedure: ?The [...] for a 45cm 5F Destination. V18 and Oxford a nd QuickCross catheters were used to [...] bifurcation. Access appeared in the distal R AUTO HAULER. Closure and sheath removal was performed with [...] 2.5x80 5. Completion RLE angiogram 6. L AUTO HAULER angiogram 7. 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 L AUTO HAULER access in the distal L AUTO HAULER. - Closure device: Mynx Technical Procedure: The [...] for a 45cm 5F Destination. V18 and Oxford a nd QuickCross catheters were used to [...] bifurcation. Access appeared in the distal R AUTO HAULER. Closure and sheath removal was performed with [...] Differential, Automated (08/10/2017 5:50 AM EST) [facility] Method Time Signature Neutrophils % 80.1 % [facility] LABORATORY Neutr Abs (ANC) 9.01 (H) 1.70 - [facility] 6.10 [facility] x10(3)/[facility] LABORATORY Lymphocytes % 8.8 % [facility] LABORATORY Lymphocytes Abs 1.0 0.9 - 3.2 [facility] x10(3)/[facility] LABORATORY Monocytes % 8.3 % [facility] LABORATORY Monocyte Abs 0.9 0.3 - 0.9 [facility] x10(3)/[facility] LABORATORY Eosinophils % 2.0 % [facility] LABORATORY Eosinophils Abs 0.2 0.0 - 0.4 [facility] x10(3)/[facility] LABORATORY Basophils % 0.4 % [facility] LABORATORY Basophils Abs 0.0 0.0 - 0.1 [facility] x10(3)/[facility] LABORATORY Immature Gran % 0.40 [...] 0.05 (H) 0.00 - 0.04 x10(3)/[facility] LABORATORY Specimen Anatomical Collection Method Collection Time Receive d Time (Source) Location / / Volume Laterality Blood specimen 08/10/2017 5:50 AM 018 5:59 (specimen) EST AM EST Resulting Agency Comment Spec In Lab Yonathan Smith MD HEMATOLOGY ORDERABLES Performing Organization Address City/State/Z[place] [address] (ABNORMAL) Hemogram (08/10/2017 5:50 AM EST) Analysis Performed At Patho logist Time Signature WBC 11.3 (H) 4.0 - 9.5 [facility] x10(3)/[facility] LABORATORY RBC 3.15 (L) 4.58 - [facility] 5.54 [facility] x10(6)/[facility] LABORATORY Hemoglobin 8.9 (L) 13.7 - [facility] 16.5 gm/dL [facility] LABORATORY Hematocrit 29.0 (L) 40.5 - [facility] 48.5 % [facility] LABORATORY MCV 92.1 82.9 - [facility] 93.1 [facility] LABORATORY MCH 28.3 27.5 - [facility] 32.1 pg [facility] LABORATORY MCHC 30.7 (L) 32.0 - [facility] 35.7 gm/dL [facility] LABORATORY Platelets 231 145 - 357 [facility] x10(3)/[facility] LABORATORY RDWSD 53.9 (H) 36.0 - [facility] 45.0 [facility] LABORATORY RDWCV 16.2 (H) 11.4 - [facility] 13.8 % [facility] LABORATORY MPV 8.7 7.6 - 12.9 [facility] LABORATORY nRBC % Auto 0.0 % [facility] LABORATORY nRBC Abs Auto 0.000 0.000 - [facility] 0.000 [facility] x10(3)/[facility] LABORATORY Specimen Anatomical Collection Method Collection Time Receive d Time (Source) Location / / Volume Laterality Blood specimen 08/10/2017 5:50 AM 018 5:59 (specimen) EST AM EST Resulting Agency Comment Spec In Lab Yonathan Smith MD HEMATOLOGY ORDERABLES Performing Organization Address City/[facility]/ZIP [place] [address] (ABNORMAL) Basic Metabolic Panel (non-fasting) (08/10/2017 5:50 AM EST) P athologist Signature Glucose Lvl 135 65 - 199 [facility] mg/dL [facility] Comment: Diabetes: >=200 mg/dL plus symp toms BUN 17 10 - 20 mg/dL [facility] Creatinine 1.05 0.80 - 1.50 [...] or in patients with acute kidney failure. [email or web address] [email or web address] Specimen Anatomical Collection Method Collection Time Receive d Time (Source) Location / / Volume Laterality Blood specimen 08/10/2017 5:50 AM 018 5:59 (specimen) EST AM EST Resulting Agency Comment Spec In Lab Yonathan Smith MD CHEMISTRY ORDERABLES Performing Organization Address City/State/[place] [address] (ABNORMAL) Prothrombin Time (08/10/2017 5:50 AM EST) athologist Signature PT 16.8 (H) 11.8 - 14.0 [facility] LABORATORY INR 1.4 (H) 0.9 - [...] Address City/State/[place] [address] (ABNORMAL) POCT Glucose (08/10/2017 4:01 AM EST) athologist Signature POC Glucose 206 (H) 65 - 199 [facility] Comment: Supplemental [...] Address City/State/[place] [address] POCT Glucose (08/10/2017 2:01 AM EST) athologist Signature POC Glucose 188 65 - 199 [facility] Comment: Supplemental ranges: <140 mg/dL before meals <180 mg/dL all other times of the day Specimen Anatomical Collection Method Collection Time Receive d Time (Source) Location / / Volume Laterality Blood specimen 08/10/2017 2:01 AM 018 2:01 (specimen) EST AM EST Yonathan Smith MD POINT OF CARE TEST ORDERABLE S Performing Organization Address City/[facility]/[place] [address] (ABNORMAL) POCT Glucose (08/09/2017 11:42 PM EST) athologist Signature POC Glucose 283 (H) 65 - 199 [facility] Comment: Supplemental ranges: <140 mg/dL before meals <180 mg/dL all other times of the day Specimen Anatomical Collection Method Collection Time Receive d Time (Source) Location / / Volume Laterality Blood specimen 08/09/2017 11:42 8 (specimen) PM EST 11:42 PM EST Yonathan Smith MD POINT OF CARE TEST ORDERABLE S Performing Organization Address City/[facility]/[place] [address] POCT Glucose (08/09/2017 8:55 PM EST) athologist Signature POC Glucose 182 65 - 199 [facility] Comment: Supplemental [...] Address City/State/[place] [address] (ABNORMAL) APTT (08/09/2017 6:42 [...] Address City/State/ZIP Code Phon e Number [address] POCT Glucose (08/09/2017 4:41 PM EST) athologist Signature POC Glucose 195 65 - 199 [place] [facility] mg/dL [facility] Comment: Supplemental ranges: <140 mg/dL before meals <180 mg/dL all other times of the day Specimen Anatomical Collection Method Collection Time Receive d Time (Source) Location / / Volume Laterality Blood specimen 08/09/2017 4:41 PM 018 4:41 (specimen) EST PM EST Yonathan Smith MD POINT OF CARE TEST ORDERABLE S Performing Organization Address City/[facility]/[place] [address] POCT Glucose (08/09/2017 12:29 PM EST) athologist Signature POC Glucose 140 65 - 199 [place] [facility] mg/dL [facility] Comment: Supplemental ranges: <140 mg/dL before meals <180 mg/dL all other times of the day Specimen Anatomical Collection Method Collection Time Receive d Time (Source) Location / / Volume Laterality Blood specimen 08/09/2017 12:29 8 (specimen) PM EST 12:29 PM EST Yonathan Smith MD POINT OF CARE TEST ORDERABLE S Performing Organization Address City/[facility]/ZIP Code Phon e Number [address] POCT Glucose (08/09/2017 9:59 AM EST) athologist Signature POC Glucose 135 65 - 199 [place] [facility] mg/dL [facility] Comment: Supplemental ranges: <140 mg/dL before meals <180 mg/dL all other times of the day Specimen Anatomical Collection Method Collection Time Receive d Time (Source) Location / / Volume Laterality Blood specimen 08/09/2017 9:59 AM 018 9:59 (specimen) EST AM EST Yonathan Smith MD POINT OF CARE TEST ORDERABLE S Performing Organization Address [facility]/ZIP Code Phon e Number [address] Specimen to Pathology (08/09/2017 8:41 AM EST) Specimen Anatomical Collection Method Collection Time Receive d Time (Source) Location / / Volume Laterality AP Specimen 08/09/2017 8:41 AM 8 8:41 EST AM EST [address] [facility] - 08/09/2017 8:41 AM EST Specimen requisition ordered. ??Separate Pathology report to follow Yonathan Smith MD PATHOLOGY/CYTOLOGY ORDERABLE S Performing Organization Address City/[facility]/[place] [address] Surgical Pathology Report (08/09/2017 8:40 AM EST) Component Value Ref Test Analysis Performed At [facility] Range Method Time Signature Surgical [id number] ? Location: [address] [place] [address]; [facility] Report The signing pathologist has (i) examined the relevant preparation(s) for the [facility] specimen(s) and (ii) rendered or confirmed the diagnosis(es) . HOSPITAL LABORATORY . 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 ?Viable proximal resection margins. Electronically signed by: ??Henrique Saravia MD Verified: ??08/13/2017 ?Pathologist Performed at: ??-[facility] Dept. of Pathology, [place], [place] CLINICAL INFORMATION Specimen Submitted: A - [...] MD PATHOLOGY/CYTOLOGY ORDERABLE S Performing Organization Address City/State/[facility] [place] [address] Anaerobic Culture (08/09/2017 8:30 AM EST) [facility] gist Method Time Signature Anaerobic No anaerobic [facility] Culture organisms [facility] LABORATORY Specimen Anatomical Collection Method [...] - GENERAL ORDER ROBSON Performing Organization Address City/[facility]/[place] [address] (ABNORMAL) Abscess/Wound Aspirate Culture (08/09/2017 8:30 AM EST) [facility] Method Time Signature Abscess/Wound Moderate mixed [place] Aspirate bacterial [place] Culture morphotypes [facility] normal LABORATORY cutaneous leroy (A) Gram Stain Rare White Blood Cells [place] Few Gram Positive Cocci in pairs [place] () [facility] Organism Gram Positive [place] Cocci in pairs [place] () [facility] Specimen Anatomical Collection [...] - GENERAL ORDER ROBSON Performing Organization Address City/[facility]/[place] [address] POCT Glucose (08/09/2017 4:28 AM EST) P athologist Signature POC Glucose 128 65 - 199 [facility] mg/dL [facility] Comment: Supplemental [...] Address City/State/ZIP Code Phon e Number [address] ABORH Recheck Status (08/09/2017 1:10 AM EST) [facility] Method Time Signature ABORH Type Completed [facility] LABORATORY Specimen Anatomical Collection Method Collection Time Receive d Time (Source) Location / / Volume Laterality Blood specimen 08/09/2017 1:10 AM 018 1:35 (specimen) EST AM EST Resulting Agency Comment Spec In Lab Yonathan Smith MD BLOOD BANK ORDERABLES Performing Organization Address City/[facility]/[place] [address] Antibody screen (08/09/2017 1:10 AM EST) Patholo gist Method Time Signature Ab Screen Negative [facility] LABORATORY Expires at 08/12/2017 BAR[place]A ZHAOSU [id number] on: [facility] Specimen Anatomical Collection Method Collection Time Receive d Time (Source) Location / / Volume Laterality Blood specimen 08/09/2017 1:10 AM 018 1:35 (specimen) EST AM EST Resulting Agency Comment Spec In Lab Yonathan Smith MD BLOOD BANK ORDERABLES Performing Organization Address City/[facility] [place] [address] ABO/Rh Typing (08/09/2017 1:10 AM EST) P athologist Signature ABORh Type O Pos [facility] Specimen Anatomical Collection Method Collection Time Receive d Time (Source) Location / / Volume Laterality Blood specimen 08/09/2017 1:10 AM 018 1:35 (specimen) EST AM EST Resulting Agency Comment Spec In Lab Yonathan Smith MD BLOOD BANK ORDERABLES Performing Organization Address City/[facility] [address] (ABNORMAL) APTT (08/09/2017 1:10 AM EST) P athologist Signature PTT 86 (H) 25 - [address] [facility] Comment: The recommended therapeutic range for fu ll dose, unfractionated heparin at [facility] is 80 [...] City/State/ZIP Code Phon e Number [place] [id number] [address] (ABNORMAL) Differential, Automated (08/09/2017 1:10 AM EST) [facility] Method Time Signature Neutrophils % 76.2 % [facility] Neutr Abs (ANC) 8.59 (H) 1.70 - [facility] 6.10 [facility] x10(3)/[facility] LABORATORY Lymphocytes % 11.0 % [facility] Lymphocytes Abs 1.2 0.9 - 3.2 [facility] x10(3)/[facility] LABORATORY Monocytes % 8.4 % [facility] Monocyte Abs 1.0 (H) 0.3 - 0.9 [facility] x10(3)/[facility] LABORATORY Eosinophils % 3.5 % [facility] Eosinophils Abs 0.4 0.0 - 0.4 [facility] x10(3)/[facility] LABORATORY Basophils % 0.5 % [facility] Basophils Abs 0.1 0.0 - 0.1 [facility] x10(3)/[facility] LABORATORY Immature Gran % 0.40 [...] 0.05 (H) 0.00 - 0.04 x10(3)/[facility] LABORATORY Specimen Anatomical Collection Method Collection Time Receive d Time (Source) Location / / Volume Laterality Blood specimen 08/09/2017 1:10 AM 018 1:19 (specimen) EST AM EST Resulting Agency Comment Spec In Lab Yonathan Smith MD HEMATOLOGY ORDERABLES Performing Organization Address City/State/ZIP [place] [address] (ABNORMAL) Hemogram (08/09/2017 1:10 AM EST) Analysis Performed At Patho logist Time Signature WBC 11.3 (H) 4.0 - 9.5 [facility] x10(3)/[facility] LABORATORY RBC 3.47 (L) 4.58 - [facility] 5.54 [facility] x10(6)/[facility] LABORATORY Hemoglobin 10.0 (L) 13.7 - [facility] 16.5 gm/dL [facility] Hematocrit 31.9 (L) 40.5 - [facility] 48.5 % [facility] MCV 91.9 82.9 - [facility] 93.1 [facility] LABORATORY MCH 28.8 27.5 - [facility] 32.1 pg [facility] MCHC 31.3 (L) 32.0 - [facility] 35.7 gm/dL [facility] Platelets 234 145 - 357 [facility] x10(3)/[facility] LABORATORY RDWSD 54.0 (H) 36.0 - [facility] 45.0 [facility] LABORATORY RDWCV 16.2 (H) 11.4 - [facility] 13.8 % [facility] MPV 8.7 7.6 - 12.9 [facility] LABORATORY nRBC % Auto 0.0 % [facility] nRBC Abs Auto 0.000 0.000 - [facility] 0.000 [facility] x10(3)/[facility] LABORATORY Specimen Anatomical Collection Method Collection Time Receive d Time (Source) Location / / Volume Laterality Blood specimen 08/09/2017 1:10 AM 018 1:19 (specimen) EST AM EST Resulting Agency Comment Spec In Lab Yonathan Smith MD HEMATOLOGY ORDERABLES Performing Organization Address City/State/ZIP [place] [address] (ABNORMAL) Prothrombin Time (08/09/2017 1:10 AM EST) P athologist Signature PT 16.0 (H) 11.8 - 14.0 [facility] LABORATORY INR 1.3 (H) 0.9 - [...] Address City/State/ZIP [place] [address] (ABNORMAL) Basic Metabolic Panel (non-fasting) (08/09/2017 1:10 AM EST) athologist Signature Glucose Lvl 108 65 - 199 [facility] mg/dL [facility] Comment: Diabetes: >=200 mg/dL plus symp toms BUN 34 (H) 10 - 20 mg/dL [facility] Creatinine 1.54 (H) 0.80 - [...] - 15 mmol/L [facility] Calcium 8.3 (L) 8.5 - 10.5 mg/dL [facility] Estimated GFR 45 (L) >=60 [place] Wyatt [facility] Comment: The reported eGFR should be multiplied b y 1.2 for patients. The MDRD is not an appropriate measure o f renal function for patients with body mass extremes or in patients with acute kidney failure. http://XGear/DHnkdep http://XGear/DHMCnkf Specimen Anatomical Collection Method Collection Time Receive d Time (Source) Location / / Volume Laterality Blood specimen 08/09/2017 1:10 AM 018 1:19 (specimen) EST AM EST Resulting Agency Comment Spec In Lab Yonathan Smith MD CHEMISTRY ORDERABLES Performing Organization Address City/[facility] Code Phon e Number [address] POCT Glucose (08/09/2017 12:05 AM EST) athologist Signature POC Glucose 128 65 - 199 [facility] SU mg/dL [facility] Comment: Supplemental ranges: <140 mg/dL before meals <180 mg/dL all other times of the day Specimen Anatomical Collection Method Collection Time Receive d Time (Source) Location / / Volume Laterality Blood specimen 08/09/2017 12:05 8 (specimen) AM EST 12:05 AM EST Yonathan Smith MD POINT OF CARE TEST ORDERABLE S Performing Organization Address City/[facility]/[place] [address] (ABNORMAL) POCT Glucose (08/08/2017 7:36 PM EST) athologist Signature POC Glucose 215 (H) 65 - 199 [facility] mg/dL [facility] Comment: Supplemental ranges: <140 mg/dL before meals <180 mg/dL all other times of the day Specimen Anatomical Collection Method Collection Time Receive d Time (Source) Location / / Volume Laterality Blood specimen 08/08/2017 7:36 PM 018 7:36 (specimen) EST PM EST Yonathan Smith MD POINT OF CARE TEST ORDERABLE S Performing Organization Address City/[facility]/[place] [address] (ABNORMAL) POCT Glucose (08/08/2017 6:23 PM EST) athologist Signature POC Glucose 216 (H) 65 - 199 [facility] mg/dL [facility] Comment: Supplemental ranges: <140 mg/dL before meals <180 mg/dL all other times of the day Specimen Anatomical Collection Method Collection Time Receive d Time (Source) Location / / Volume Laterality Blood specimen 08/08/2017 6:23 PM 018 6:23 (specimen) EST PM EST Yonathan Smith MD POINT OF CARE TEST ORDERABLE S Performing Organization Address City/State/ZIP Code [facility] e Number [address] (ABNORMAL) APTT (08/08/2017 6:00 PM EST) athologist [facility] PTT 97 (H) 25 - [address] [facility] Comment: The recommended therapeutic range for fu ll dose, unfractionated heparin at [facility] is 80 [...] Address City/State/ZIP Code Phon e Number [address] POCT Glucose (08/08/2017 4:42 PM EST) athologist Signature POC Glucose 78 65 - 199 [facility] mg/dL [facility] Comment: Supplemental [...] Address City/State/ZIP Code Phon e Number [address] (ABNORMAL) POCT Glucose (08/08/2017 4:01 PM EST) athologist Signature POC Glucose 58 (L) 65 - 199 [facility] Comment: Supplemental ranges: <140 mg/dL before meals <180 mg/dL all other times of the day Specimen Anatomical Collection Method Collection Time Receive d Time (Source) Location / / Volume Laterality Blood specimen 08/08/2017 4:01 PM 018 4:01 (specimen) EST PM EST Yonathan Smith MD POINT OF CARE TEST ORDERABLE S Performing Organization Address City/[facility]/[place] [address] POCT Glucose (08/08/2017 11:51 AM EST) athologist Signature POC Glucose 90 65 - 199 [facility]dL [facility] Comment: Supplemental [...] Address City/State/[place] [address] (ABNORMAL) APTT (08/08/2017 10:27 AM EST) athologist Signature PTT 64 (H) 25 - [address] [facility] Comment: The recommended therapeutic range for fu ll dose, unfractionated heparin at [facility] is 80 [...] Address City/State/[place] [address] POCT Glucose (08/08/2017 8:02 AM EST) athologist Signature POC Glucose 178 65 - 199 [facility] mg/dL [facility] Comment: Supplemental ranges: <140 mg/dL before meals <180 mg/dL all other times of the day Specimen Anatomical Collection Method Collection Time Receive d Time (Source) Location / / Volume Laterality Blood specimen 08/08/2017 8:02 AM 018 8:02 (specimen) EST AM EST Yonathan Smith MD POINT OF CARE TEST ORDERABLE S Performing Organization Address City/[facility] [address] (ABNORMAL) APTT (08/08/2017 4:51 AM EST) athologist Signature PTT >160 25 - 35 [place] [facility] (Critical) sec [facility] Comment: Called by: HOWARD, Read back by: Melba Jaramillo, Date/Time:08/08/17 05:43. The recommended therapeutic range for fu ll dose, unfractionated heparin at [facility] is 80 [...] Smith MD HEMATOLOGY ORDERABLES Performing Organization Address City/[facility]/ZIP [facility] [address] (ABNORMAL) Differential, Automated (08/08/2017 4:51 AM EST) Patholo gist Method Time Signature Neutrophils % 77.9 % [facility] Neutr Abs (ANC) 8.17 (H) 1.70 - [facility] 6.10 [facility] x10(3)/[facility] LABORATORY Lymphocytes % 10.3 % [facility] Lymphocytes Abs 1.1 0.9 - 3.2 [facility] x10(3)/[facility] LABORATORY Monocytes % 7.0 % [facility] Monocyte Abs 0.7 0.3 - 0.9 [facility] x10(3)/[facility] LABORATORY Eosinophils % 3.6 % [facility] Eosinophils Abs 0.4 0.0 - 0.4 [facility] x10(3)/[facility] LABORATORY Basophils % 0.5 % [facility] Basophils Abs 0.0 0.0 - 0.1 [facility] x10(3)/[facility] LABORATORY Immature Gran % 0.70 % ST [...] 0.07 (H) 0.00 - 0.04 x10(3)/[facility] LABORATORY Specimen Anatomical Collection Method Collection Time Receive d Time (Source) Location / / Volume Laterality Blood specimen 08/08/2017 4:51 AM 018 5:14 (specimen) EST AM EST Resulting Agency Comment Spec In Lab Yonathan Smith MD HEMATOLOGY ORDERABLES Performing Organization Address City/State/ZIP [place] [address] (ABNORMAL) Hemogram (08/08/2017 4:51 AM EST) Analysis Performed At Patho logist Time Signature WBC 10.5 (H) 4.0 - 9.5 [facility] x10(3)/[facility] LABORATORY RBC 3.27 (L) 4.58 - [place] [facility] 5.54 [facility] x10(6)/[facility] LABORATORY Hemoglobin 9.3 (L) 13.7 - [facility] 16.5 gm/dL [facility] Hematocrit 30.3 (L) 40.5 - [facility] 48.5 % [facility] MCV 92.7 82.9 - [facility] 93.1 [facility] LABORATORY MCH 28.4 27.5 - [facility] SU 32.1 pg [facility] MCHC 30.7 (L) 32.0 - [facility] 35.7 gm/dL [facility] Platelets 252 145 - 357 [facility] x10(3)/[facility] LABORATORY RDWSD 54.6 (H) 36.0 - [facility] 45.0 [facility] RDWCV 16.2 (H) 11.4 - [facility] 13.8 % [facility] MPV 9.1 7.6 - 12.9 [facility] LABORATORY nRBC % Auto 0.0 % [facility] nRBC Abs Auto 0.000 0.000 - [facility] 0.000 [facility] x10(3)/[facility] LABORATORY Specimen Anatomical Collection Method Collection Time Receive d Time (Source) Location / / Volume Laterality Blood specimen 08/08/2017 4:51 AM 018 5:14 (specimen) EST AM EST Resulting Agency Comment Spec In Lab Yonathan Smith MD HEMATOLOGY ORDERABLES Performing Organization Address City/State/ZIP [place] [address] (ABNORMAL) Prothrombin Time (08/08/2017 4:51 AM EST) P athologist Signature PT 18.1 (H) 11.8 - 14.0 [facility] LABORATORY INR 1.5 (H) 0.9 - [...] Address City/State/ZIP [place] [address] (ABNORMAL) Basic Metabolic Panel (non-fasting) (08/08/2017 4:51 AM EST) athologist Signature Glucose Lvl 229 (H) 65 - 199 [facility] mg/dL [facility] Comment: Diabetes: >=200 mg/dL plus symp toms BUN 35 (H) 10 - 20 mg/dL [facility] Creatinine 1.57 (H) 0.80 - [...] Gap 17 (H) 5 - 15 mmol/L [facility] Calcium 7.9 (L) 8.5 - 10.5 mg/dL [facility] LABORATORY Estimated GFR 44 (L) >=60 [facility] Comment: The reported eGFR should be multiplied b y 1.2 for patients. The MDRD is not an appropriate measure o f renal function for patients with body mass extremes or in patients with acute kidney failure. http://[email or web address] [email or web address]://[email or web address]/DHMCnkf Specimen Anatomical Collection Method Collection Time Receive d Time (Source) Location / / Volume Laterality Blood specimen 08/08/2017 4:51 AM 018 5:14 (specimen) EST AM EST Resulting Agency Comment Spec In Lab Yonathan Smith MD CHEMISTRY ORDERABLES Performing Organization Address City/[facility]/ZIP Code Phon e Number [address] POCT Glucose (08/08/2017 4:20 AM EST) athologist Signature POC Glucose 193 65 - 199 [facility] Comment: Supplemental ranges: <140 mg/dL before meals <180 mg/dL all other times of the day Specimen Anatomical Collection Method Collection Time Receive d Time (Source) Location / / Volume Laterality Blood specimen 08/08/2017 4:20 AM 018 4:20 (specimen) EST AM EST Yonathan Smith MD POINT OF CARE TEST ORDERABLE S Performing Organization Address City/[facility]/ZIP Code Phon e Number [address] POCT Glucose (08/07/2017 11:11 PM EST) athologist Signature POC Glucose 124 65 - 199 [facility] Comment: Supplemental ranges: <140 mg/dL before meals <180 mg/dL all other times of the day Specimen Anatomical Collection Method Collection Time Receive d Time (Source) Location / / Volume Laterality Blood specimen 08/07/2017 11:11 8 (specimen) PM EST 11:11 PM EST Yonathan Smith MD POINT OF CARE TEST ORDERABLE S Performing Organization Address City/[facility]/ZIP Code Phon e Number [address] (ABNORMAL) APTT (08/07/2017 10:18 PM EST) athologist Signature PTT 114 (H) 25 - [address] [facility] Comment: The recommended therapeutic range for fu ll dose, unfractionated heparin at [facility] is 80 [...] Smith MD HEMATOLOGY ORDERABLES Performing Organization Address City/[facility]/ZIP Code Phon e Number [address] POCT Glucose (08/07/2017 8:10 PM EST) athologist Signature POC Glucose 140 65 - 199 [facility]dL [facility] Comment: Supplemental ranges: <140 mg/dL before meals <180 mg/dL all other times of the day Specimen Anatomical Collection Method Collection Time Receive d Time (Source) Location / / Volume Laterality Blood specimen 08/07/2017 8:10 PM 018 8:10 (specimen) EST PM EST Yonathan Smith MD POINT OF CARE TEST ORDERABLE S Performing Organization Address City/[facility]/ZIP Code Phon e Number [address] POCT Glucose (08/07/2017 5:27 PM EST) athologist Signature POC Glucose 187 65 - 199 [facility] Comment: Supplemental ranges: <140 mg/dL before meals <180 mg/dL all other times of the day Specimen Anatomical Collection Method Collection Time Receive d Time (Source) Location / / Volume Laterality Blood specimen 08/07/2017 5:27 PM 018 5:27 (specimen) EST PM EST Yonathan Smith MD POINT OF CARE TEST ORDERABLE S Performing Organization Address City/[facility]/ZIP Code Phon e Number [address] POCT Glucose (08/07/2017 3:29 PM EST) athologist Signature POC Glucose 86 65 - 199 [facility] mg[facility]dL [facility] Comment: Supplemental ranges: <140 mg/dL before meals <180 mg/dL all other times of the day Specimen Anatomical Collection Method Collection Time Receive d Time (Source) Location / / Volume Laterality Blood specimen 08/07/2017 3:29 PM 018 3:29 (specimen) EST PM EST Yonathan Smith MD POINT OF CARE TEST ORDERABLE S Performing Organization Address City/[facility]/[place] [address] (ABNORMAL) APTT (08/07/2017 2:50 PM EST) athologist [facility] PTT 60 (H) 25 - [address] [facility] Comment: The recommended therapeutic range for fu ll dose, unfractionated heparin at [facility] is 80 [...] Smith MD HEMATOLOGY ORDERABLES Performing Organization Address City/[facility]/[place] [address] (ABNORMAL) POCT Glucose (08/07/2017 2:23 PM EST) athologist Signature POC Glucose 55 (L) 65 - 199 [facility]dL [facility] Comment: Supplemental ranges: <140 mg/dL before meals <180 mg/dL all other times of the day Specimen Anatomical Collection Method Collection Time Receive d Time (Source) Location / / Volume Laterality Blood specimen 08/07/2017 2:23 PM 018 2:23 (specimen) EST PM EST Yonathan Smith MD POINT OF CARE TEST ORDERABLE S Performing Organization Address City/[facility]/ZIP Code [place] [address] [facility] [address] POCT Glucose (08/07/2017 12:08 PM EST) P athologist Signature POC Glucose 77 65 - 199 [facility] mg/dL [facility] Comment: Supplemental [...] Address City/State/ZIP Code Phon e Number [address] (ABNORMAL) Differential, Automated (08/07/2017 7:30 AM EST) Patholo gist Method Time Signature Neutrophils % 73.8 % [facility] Neutr Abs (ANC) 7.17 (H) 1.70 - [facility] 6.10 [facility] x10(3)/[facility] LABORATORY Lymphocytes % 12.2 % [facility] Lymphocytes Abs 1.2 0.9 - 3.2 [facility] x10(3)/[facility] LABORATORY Monocytes % 9.0 % [facility] Monocyte Abs 0.9 0.3 - 0.9 [facility] x10(3)[facility] LABORATORY Eosinophils % 3.9 % [facility] Eosinophils Abs 0.4 0.0 - 0.4 [facility] x10(3)/[facility] LABORATORY Basophils % 0.6 % [facility] Basophils Abs 0.1 0.0 - 0.1 [facility] x10(3)/[facility] LABORATORY Immature Gran % 0.50 % ST [...] 0.05 (H) 0.00 - 0.04 x10(3)/[facility] LABORATORY Specimen Anatomical Collection Method Collection Time Receive d Time (Source) Location / / Volume Laterality Blood specimen 08/07/2017 7:30 AM 018 7:45 (specimen) EST AM EST Resulting Agency Comment Spec In Lab Yonathan Smith MD HEMATOLOGY ORDERABLES Performing Organization Address City/State/ZIP [place] [address] (ABNORMAL) Hemogram (08/07/2017 7:30 AM EST) Analysis Performed At Patho logist Time Signature WBC 9.7 (H) 4.0 - 9.5 [facility] x10(3)/[facility] LABORATORY RBC 3.54 (L) 4.58 - [facility] 5.54 [facility] x10(6)/[facility] LABORATORY Hemoglobin 9.9 (L) 13.7 - [facility] 16.5 gm/dL [facility] Hematocrit 32.3 (L) 40.5 - [facility] 48.5 % [facility] MCV 91.2 82.9 - [facility] 93.1 [facility] LABORATORY MCH 28.0 27.5 - [facility] 32.1 pg [facility] MCHC 30.7 (L) 32.0 - [facility] 35.7 gm/dL [facility] Platelets 312 145 - 357 [facility] x10(3)/[facility] LABORATORY RDWSD 53.2 (H) 36.0 - [facility] SU 45.0 [facility] LABORATORY RDWCV 16.0 (H) 11.4 - [facility] 13.8 % [facility] LABORATORY MPV 8.9 7.6 - 12.9 [facility] LABORATORY nRBC % Auto 0.0 % [facility] nRBC Abs Auto 0.000 0.000 - [facility] SU 0.000 [facility] x10(3)/[facility] LABORATORY Specimen Anatomical Collection Method Collection Time Receive d Time (Source) Location / / Volume Laterality Blood specimen 08/07/2017 7:30 AM 018 7:45 (specimen) EST AM EST Resulting Agency Comment Spec In Lab Yonathan Smith MD HEMATOLOGY ORDERABLES Performing Organization Address City/State/ZIP [place] [address] (ABNORMAL) Basic Metabolic Panel (non-fasting) (08/07/2017 7:30 AM EST) P athologist Signature Glucose Lvl 80 65 - 199 [facility] mg/dL [facility] Comment: Diabetes: >=200 mg/dL plus symp toms BUN 31 (H) 10 - 20 mg/dL [facility]OR[facility] Creatinine 1.22 0.80 - 1.50 [...] Anion Gap 12 5 - 15 mmol/L [facility] Calcium 8.5 8.5 - 10.5 mg/dL [facility] LABORATORY Estimated GFR 59 (L) >=60 [facility] Comment: The reported eGFR should be multiplied b y 1.2 for patients. The MDRD is not an appropriate measure o f renal function for patients with body mass extremes or in patients with acute kidney failure. http://Lolapps.PostBeyond/DHnkdep http://XGear/DHMCnkf Specimen Anatomical Collection Method Collection Time Receive d Time (Source) Location / / Volume Laterality Blood specimen 08/07/2017 7:30 AM 018 7:45 (specimen) EST AM EST Resulting Agency Comment Spec In Lab Yonathan Smith MD CHEMISTRY ORDERABLES Performing Organization Address City/[facility]/ZIP Code Phon e Number [address] POCT Glucose (08/07/2017 7:27 AM EST) athologist Signature POC Glucose 81 65 - 199 [facility] mg/dL [facility] Comment: Supplemental ranges: <140 mg/dL before meals <180 mg/dL all other times of the day Specimen Anatomical Collection Method Collection Time Receive d Time (Source) Location / / Volume Laterality Blood specimen 08/07/2017 7:27 AM 018 7:27 (specimen) EST AM EST Yonathan Smith MD POINT OF CARE TEST ORDERABLE S Performing Organization Address [facility] Phon e Number [address] APTT (08/07/2017 7:04 AM EST) athologist [facility] PTT 34 25 - [address] [facility] Comment: The recommended therapeutic range for fu ll dose, unfractionated heparin at [facility] is 80 [...] Smith MD HEMATOLOGY ORDERABLES Performing Organization Address City/[facility]/ZIP [facility] [address] (ABNORMAL) Prothrombin Time (08/07/2017 7:04 AM EST) athologist [facility] PT 17.3 (H) 11.8 - 14.0 [facility] LABORATORY INR 1.4 (H) 0.9 - [...] Smith MD HEMATOLOGY ORDERABLES Performing Organization Address City/[facility]/ZIP Code Phon e Number [address] POCT Glucose (08/07/2017 4:03 AM EST) athologist Signature POC Glucose 93 65 - 199 [facility] mg[facility]dL [facility] Comment: Supplemental ranges: <140 mg/dL before meals <180 mg/dL all other times of the day Specimen Anatomical Collection Method Collection Time Receive d Time (Source) Location / / Volume Laterality Blood specimen 08/07/2017 4:03 AM 018 4:03 (specimen) EST AM EST Yonathan Smith MD POINT OF CARE TEST ORDERABLE S Performing Organization Address City/[facility]/ZIP Code Phon e Number [address] POCT Glucose (08/07/2017 12:04 AM EST) athologist Signature POC Glucose 107 65 - 199 [facility] mg/dL [facility] Comment: Supplemental ranges: <140 mg/dL before meals <180 mg/dL all other times of the day Specimen Anatomical Collection Method Collection Time Receive d Time (Source) Location / / Volume Laterality Blood specimen 08/07/2017 12:04 8 (specimen) AM EST 12:04 AM EST Yonathan Smith MD POINT OF CARE TEST ORDERABLE S Performing Organization Address City/[facility]/ZIP Code Phon e Number [address] POCT Glucose (08/06/2017 7:56 PM EST) P athologist Signature POC Glucose 178 65 - 199 [place] [facility] mg/dL [facility] Comment: Supplemental [...] Address City/State/ZIP [place] [address] TcPO2 (08/06/2017 2:32 PM EST) Component Value Ref Test Analysis Performed At Patholo gist Range Method Time Signature VB Text Department: Vascular Surgery Lab VASCUBASE Report Patient: [id number] (GREGORY HOANG) CPT: 4190685 ICD10: I99.8 Referring Physician: YONATHAN SMITH ?? [...] Mcgrath RN) 0807 (Given - Provider: Chiquis Mcgrtah RN) 0800 (Marc smith - Provider: Dory [...] Gi 1213 (Given - Provider: Chiquis Mcgrath, VAMSI - Comment: BG [phone] (Given [...] VAMSI) 0631 (G iven - Provider: Mira Truong, [...] mg (COMPLETED) 1713 (Given - Provider: Chiquis Mcgrath RN) 2.5 [...]
Routine documented in this encounter Care Teams Motor Grader Operator Relationship Specialty Start Date End Date Lovely Vicente MD PCP - General 04/16/[address] [place] [address] [address] [place] [address] documented as of this encounter
--- OUTSIDE RECORDS SUMMARY | 2022-02-27 15:13 | XMS_ITS | Encounter Summary ---
:1945 [place] [address] Care Team Providers Name Role Phone Lovely Vicente MD Primary Care Provider Encounter Details Date Type Department Care Team Description 08/09/2017 Clinical Support Same Day at [facility] Canceled (D-SCHED ERROR [facility] / CORRECT ION ) [place] [address] Social History Tobacco Use Types Packs/Day [...] MD [facility] CARDIOLOGY [place], [place] [address] (Wo rk) 06/10/2022 Office Visit Dermatology Laura Scherer MD [facility] [address] GR-DERMAT OLOGY [place], [place] [address] (Wo rk) documented as of this encounter Procedures Procedure Name Priority Date/Time Associated Diagnosis Comme nts WOMEN'S LACROSSE COACH 08/09/2017 12:00 AM Resul ts for this SCAN EST procedure are i n the results section. documented in this encounter Results SCAN DOC: WOMEN'S LACROSSE COACH (08/09/2017 12:00 AM EST) Narrative 08/09/2017 12:00 AM EST This result has an attachment that is no t available. Ordered by an unspecified provider. Scanning Provider MEDIA MGR SCAN EXT ORDR/RSLT documented in this encounter Visit Diagnoses Not on filedocumented in this encounter Care Teams Picture Enlarger Relationship Specialty Start Date End Date Lovely Vicente MD PCP - General 04/16/[address] [place] [address] documented as of this encounter
--- OUTSIDE RECORDS SUMMARY | 2022-02-27 15:13 | XMS_ITS | Encounter Summary ---
:1945 Author Organization [facility] [place] [address] Care Team Providers Name Role Phone Lovely Vicente MD Primary Care Provider Reason for Visit Auth/Cert Specialty Diagnoses / Procedures Referred By Contact Refer red To Contact Diagnoses Critical lower limb ischemia CELLULITIS RT FOOT Procedures EMERGENCY Referral ID Status Reason Start Date Expiration Date Visits Requ ested Visits Authorized [id number] 1 1 Encounter Details Date Type Department Care Team Description 08/11/2017 Surgery Main Operating Room Yonathan Smith (M SURG) DRESSING CHANGE Barbara Ocampo MD (FOR OTHER THAN IVAN) [facility] UNDER ANES. 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 [...] Dorsalis Pedis (Ankle) Artery ?132 ? 0.94 ??Maverick-Biphasic ? Posterior Tibial (Ankle) Artery ??154 ? 1.10 ??Maverick-Biphasic ? Fourth Toe ? 67 ?0.48 ?? [...] foot. Discharge Conditions/Prognosis: Good Discharge to: [facility] Discharge Medications: Your Medications New Medications [...] For any problems or questions please call [phone] ZELDA Smith, nurse unit manager Nurse Clinician For issues on weeknights after 5pm and weekends please call [phone] and ask for the Vascular Fellow transcription coordinator. General Instructions None Future Appointments and Orders Future Appointments Provider Department Dept Phone 08/26/2017 4:00 PM Aurelia Rivera PA [facility] [place] [phone] 09/07/2017 3:00 PM LAB, THREE L Lab 3L [facility] [phone] 09/07/2017 4:00 PM Luz Prescott MD Endocrinology [facility] [place] [phone] 09/09/2017 8:00 AM Barbra Soares APRN [facility] Management [facility] [place] [phone] Please bring a list of your current [...] For any problems or questions please call [phone] ZELDA Smith, nurse unit manager Nurse Clinician For issues on weeknights after 5pm and weekends please call [phone] and ask for the Vascular Fellow transcription coordinator. documented in this encounter Medications at Time [...] as of this encounter Progress Notes Shirin Wlof RN - 08/16/2017 11:14 AM EST Office of Care Management Discharge Note Patient Destination: [facility] ([facility]) [address] [place] [id number] Transportation: with (at bedside) Time of Discharge: by 12 noon Level of Care: swing Patient Aware: yes Family Notified: yes Md to call report to: Yissel Quintero BOILER RELINER already called RN to call report to: [phone] Shirin Wolf Office of Care Management Pager [phone] Shirin Wagner RN - 08/16/2017 10:50 AM EST [facility] has offered pt swing bed. Pt and accept bed. will transport via car. BOILER RELINER Yissel Quintero aware; d/c paperwork will be completed by 12 noon. [facility] requests pt arrival by 1400 today; BOILER RELINER, RN, and family aware. BOILER RELINER called [facility] and was told that they prefer pt to arrive with wound vac dressing applied but clamped. BOILER RELINER applied new wound vac dressing. RN has [facility] number to call report. PASSR completed; BOILER RELINER paged to request provider signature in highlighted space. Indigo from [facility] notified via email that home wound vac now cancelled; [facility] has picked up from room and order cancelled. Packet started and provided to unit secy. Medicare important message explained to patient, patient signed. Copy provided to patient and signature page to OCM for inclusion in pt EMR. Radha Georges - 08/16/2017 10:34 AM EST Office of Care Management/Cad Design Engineer Patient Name: Gregory Hoang : 1945 Patient has been offered a swing bed at [facility]. The patient will be transported by private transportation. No MD to MD report necessary Please call Nursing Report to [phone], ask for maintenance representative. Info to accompany patient: Narcotic Prescriptions Copies of Medication Administration Records and IV sheets for past 10 days. Plan: Cad Design Engineer will be available to the patient and Closing Manager-RN and/or Rn Plastics for further assistance. Patient will be discharged to: [facility] [address] [place] [address] [id number] Radha Powers, Cad Design Engineer Mira Black, VAMSI - 08/15/2017 10:05 PM EST [address] Flores to ask if he wanted to hold metoprolol dose. BP 95/58. OK to hold this dose Courtney Brito - 08/15/2017 3:26 PM EST Office of Care Management(OCM)/Cad Design Engineer(RS)/ D/C Planning re : Patient is medically ready for d/c today. RS has been in contact with [facility] to see if they could offer a bed. [facility] is still reviewing the case and need their MD to review chart prior to accepting or declining. OCM team needs to check in with [place] tomorrow to check on status. 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 Vac in [...] would like information about patient's referral to: [facility] PHONE: [phone] FAX: [phone] CM spoke with RS who said that [...] rehab. Await recommendations from PT. Covering pager #[phone]. 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 Family Service Counselor Kaitlin Saha, RN Pager #[phone] Payam Rosales - 08/13/2017 2:37 PM EST Family Service Counselor Encounter Note Patient Name: Gregory Hoang : [id number] MR#: [id number] Admit Date: 08/06/2017 1:41 PM Hospital Day 7 days Narrative: Visited to introduce and assess acceptance of Family Service Counselor services. Pt was awake, alert, oriented and in chair and family was there. Assessment:Patient coping positively with stresses of illness/hospitalization at this time. Pt says that he is hoping to get better and his family was there. Pt says that he has family care and supportand taking one day at time. Intervention and Outcome: Provided emotional support and encouraging presence. 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 A letter describing our affiliations was reviewed with them and theywere educated about their right to choose where referrals are placed. Patient requests referral to [facility]. PHONE: [phone] FAX: [phone]. And Home NPWT (Negative Pressure Wound Therapy) aka wound vac device made available to pt. Serial # confirmed. Reviewed [facility] Proof of Delivery/Assignment of Benefits Statement(POD/AOB) Form w patient or authorized agent signing on behalf of patient. Copy of POD/AOB provided to pt and other copy faxed to [employer] @ fax# [phone] Expected date of discharge: 08/12/2017. 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 Address: [address] [place] [address] [place] [address] (home) Mobile: Telephone Information: Referring Provider: No [...] SETUP performed by Manny Mcknight MD at [facility] MAIN OR ??? PRO CABG, ARTERIAL, SINGLE N/A 07/07/2017 @CABG, USING ARTERIAL GRAFT;SINGLE ARTERIAL GRAFT (WRVU 33.75) performed by Yuan Retana MD at [facility] MAIN OR ??? PRO CABG, ARTERY-VEIN, TWO N/A 07/07/2017 @CABG, TWO VENOUS GRAFTS & ARTERIAL GRAFT (WRVU 7.93) performed by Yuan Retana MD at [facility] MAIN OR ??? PRO COLONOSCOPY, REMV LESN, SNARE 01/16/2014 COLONOSCOPY, POLYPECTOMY, REMOVAL LESION BY SNARE performed by Nohemi Jaimes MD at [facility] ENDOSCOPY ??? PRO ENDOSCOPY W/VIDEO-ASST VEIN HARVEST, CABG Right 07/07/2017 ENDOSCOPIC HARVEST VEIN(S) FOR CABG (WRVU 0.31) performed by Yuan Retana MD at [facility] MAIN OR ??? 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 Heparin gtt continues to run. [...] : 1945 AGE 72 y.o. Address: [address] [place] [address] [place] [address] (home) Mobile: Telephone Information: Referring Provider: No [...] SETUP performed by Manny Mcknight MD at [facility] MAIN OR ??? PRO CABG, ARTERIAL, SINGLE N/A 07/07/2017 @CABG, USING ARTERIAL GRAFT;SINGLE ARTERIAL GRAFT (WRVU 33.75) performed by Yuan Retana MD at [facility] MAIN OR ??? PRO CABG, ARTERY-VEIN, TWO N/A 07/07/2017 @CABG, TWO VENOUS GRAFTS & ARTERIAL GRAFT (WRVU 7.93) performed by Yuan Retana MD at [facility] OR ??? PRO COLONOSCOPY, REMV LESN, SNARE 01/16/2014 COLONOSCOPY, POLYPECTOMY, REMOVAL LESION BY SNARE performed by Nohemi Jaimes MD at [facility] ENDOSCOPY ??? PRO ENDOSCOPY W/VIDEO-ASST VEIN HARVEST, CABG Right 07/07/2017 ENDOSCOPIC HARVEST VEIN(S) FOR CABG (WRVU 0.31) performed by Yuan Retana MD at [facility] MAIN OR ??? 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 Vascular resident transcription coordinator and will forward result to the team prior to rounds. 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 [...] SETUP performed by Manny Mcknight MD at [facility] MAIN OR ??? PRO CABG, ARTERIAL, SINGLE N/A 07/07/2017 @CABG, USING ARTERIAL GRAFT;SINGLE ARTERIAL GRAFT (WRVU 33.75) performed by Yuan Retana MD at [facility] MAIN OR ??? PRO CABG, ARTERY-VEIN, TWO N/A 07/07/2017 @CABG, TWO VENOUS GRAFTS & ARTERIAL GRAFT (WRVU 7.93) performed by Yuan Retana MD at [facility] MAIN OR ??? PRO COLONOSCOPY, REMV LESN, SNARE 01/16/2014 COLONOSCOPY, POLYPECTOMY, REMOVAL LESION BY SNARE performed by Nohemi Jaimes MD at [facility] ENDOSCOPY ??? PRO ENDOSCOPY W/VIDEO-ASST VEIN HARVEST, CABG Right 07/07/2017 ENDOSCOPIC HARVEST VEIN(S) FOR CABG (WRVU 0.31) performed by Yuan Retana MD at [facility] MAIN OR ??? 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 Completion RLE angiogram 6. L PHP MYSQL WEB DEVELOPER angiogram 7. 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 - L PHP MYSQL WEB DEVELOPER angriogram demonstrated: High femoral bifurcation over the proximal half of the femoral head. L PHP MYSQL WEB DEVELOPER access in the distal L PHP MYSQL WEB DEVELOPER. - Closure device: Mynx Technical Procedure: [...] for a 45cm 5F Destination. V18 and [place] and QuickCross catheters were used to select [...] 5F. A stationed picture of the L PHP MYSQL WEB DEVELOPER was performed as the patient was noted to have a very high bifurcation. Access appeared in the distal R PHP MYSQL WEB DEVELOPER. Closure and sheath removal was performed [...] PM EST 1440 report called to 5 emmet nurse Tessa AGUSTIN documented in this encounter Miscellaneous Notes Plan of Care - Dory Truong RN - 08/16/2017 10:51 AM EST Problem: Patient Care Overview Goal: Plan of Care Review Outcome: Outcome (s) achieved Date Met: 08/16/17 08/14/17 1939 08/16/17 5761 Coping/Psychosocial Plan Of Care Reviewed With -- patient Plan of Care Review Progress improving -- Discussed discharge instructions with pt and pt's spouse. Discharge to [facility]. Goal: Individualization & Mutuality Outcome: Outcome (s) [...] sit/sit to supine -- Bed Mobility Goal, [place] Level independent -- Bed Mobility Goal, Date [...] days -- Transfer Training Goal, Activity Type wgi-wf-ybnuu/rtdfb-ps-ifi -- Transfer Train Goal, [place] Level conditional independence -- Transfer Train Goal, [...] call cabello within reach, Hourly rounding by RN/RENTAL CLERK TOOL AND EQUIPMENT. Bed alarm / Chair alarm. Patient-specific fall [...] MD - 08/15/2017 6:28 PM EST [facility] Operative Note Patient Name: Gregory Hoang : [id number] MR#: [id number] Case Date: 08/09/2017 Surgeon: Surgeon(s) and Role: [...] 2.5x80 5. Completion RLE angiogram 6. L PHP MYSQL WEB DEVELOPER angiogram 7. Mynx closure Precautions/Restrictions: fall, [...] other (see comments) (or swing bed) Pager: [phone] BASSAM ELIAS, PT 08/14/2017 Inpatient Physical Therapy [...] to Achieve by discharge Gait Training Goal, [place] Level conditional independence;set up required Gait Training [...] facilities over the weekend except for [facility]. CM spoke with [facility] KANWAL Sandhu RN who said that they do not anticipate any beds over the weekend. Reviewed with patient/ that they need to be aware that patient will need to take the first bed offered at the facilities that they make referrals to. Their choices are: 1- [facility] PHONE: [phone] FAX: [phone] 2- [facility] ([facility]) [address] [place] [address] 3- [facility]) [address] [place] [address] I have discussed Medicare/Private Insurance [...] RS/CM on Wednesday to follow-up. Covering pager #[phone] for today. Plan of Care - Henrique [...] with additional findings of pseudoaneurysm on R PHP MYSQL WEB DEVELOPER and bilateral anterior tibial artery occlusions. [...] an outpatient once discharged. Have patient call [phone] to set up an appointment. Follow-up: Dermatology will sign-off for now. Please do not hesitate to contact us if you have any questions orconcerns. Impression and Recommendations discussed with primary team on 08/13/2017. Karo Henderson MD Resident in Dermatology Section of Dermatology, Department of Surgery [facility] Pager [phone] Patient seen and evaluated with staff Terrazzo Roller: Halima Cordero MD Section of Dermatology [facility] Level of Resident Supervision: Direct Supervision [...] 2.5x80 5. Completion RLE angiogram 6. L PHP MYSQL WEB DEVELOPER angiogram 7. Mynx closure Active Non-Hospital [...] home with home health ([facility] PT[facility]OT) Pager: [phone] YASIR TELLO OT 08/12/2017 Occupational Therapy Rehabilitation [...] 2.5x80 5. Completion RLE angiogram 6. L PHP MYSQL WEB DEVELOPER angiogram 7. Mynx closure Past Medical [...] with 24/7 assistance and maximal services) Pager: [phone] NICHOLAS MORA, JESSIE 08/12/2017 Physical Therapy Rehabilitation [...] sit/sit to supine -- Bed Mobility Goal, [place] Level independent -- Bed Mobility Goal, Outcome Achieved -- goal ongoing Goal: Gait Training Goal Stand Alone Therapy Goal Outcome: Ongoing (Interventions Implemented as Appropriate) 08/11/17 1310 08/12/17 1510 Gait Training Goal Gait Training Goal, Date Established 08/11/17 -- Gait Training Goal, Time to Achieve 5 - 7 days -- Gait Training Goal, [place] Level conditional independence -- Gait Training Goal, [...] days -- Transfer Training Goal, Activity Type uno-pb-aucss/qpvkb-rf-fmz -- Transfer Train Goal, [place] Level conditional independence -- Transfer Training Goal, [...] MD - 08/11/2017 2:52 PM EST [facility] Operative Note Patient Name: Gregory Hoang : [id number] MR#: [id number] Case Date: 08/11/2017 Surgeon: Surgeon(s) and Role: [...] 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 Completion RLE angiogram 6. L PHP MYSQL WEB DEVELOPER angiogram 7. Mynx closure He is [...] Anticipated Discharge Disposition: inpatient rehabilitation facility Pager: [phone] LAWRENCE GONZALEZ, PT 08/11/2017 Physical Therapy Rehabilitation [...] to sit/sit to supine Bed Mobility Goal, [place] Level independent Goal: Gait Training Goal Stand Alone Therapy Goal Outcome: Ongoing (Interventions Implemented as Appropriate) 08/11/17 1310 Gait Training Goal Gait Training Goal, Date Established 08/11/17 Gait Training Goal, Time to Achieve 5 - 7 days Gait Training Goal, [place] Level conditional independence Gait Training Goal, Assist [...] 7 days Transfer Training Goal, Activity Type ete-ou-uldei/oarnc-hj-zov Transfer Train Goal, [place] Level conditional independence Plan of Care - [...] call cabello within reach, Hourly rounding by RN/RENTAL CLERK TOOL AND EQUIPMENT. Bed alarm / Chair alarm. ? Patient-specific [...] Hospitalizations Within the Past 30 Days: [facility] 07/20/2017 Anticipated Length Of Stay (If known): Expected Length of Hospitalization: 5-7 days2-3 days Current Decision-Making Capacity: Alert and oriented x 4 Advance Care Planning: on file Kisha Hoang [facility] [phone] Current Coping/Education/Information Needs: pt and spouse state [...] Health/Prescription Coverage: Primary Insurance: MEDICARE Secondary Insurance: [employer] [place] Prescription Coverage: See above Preferred Pharmacy: [facility] Other: N/A Primary Care Provider: Lovely Vicente MD [phone] Patient/Caregiver Goals of Treatment: Patient plans to [...] of care planning. Kaitlin Saha RN Pager: [phone] Plan of Care - Melba Jaramillo RN [...] Overview Goal: Plan of Care Review 08/08/17 6464 Coping/Psychosocial Plan Of Care Reviewed With patient [...] call cabello within reach, Hourly rounding by RN/RENTAL CLERK TOOL AND EQUIPMENT. Bed alarm / Chair alarm. Patient-specific fall [...] at bedside and MD TEAM Carrying pager [phone] contacted (via Radio page) and notified of [...] Nobles MD [facility] CARDIOLOGY [place], [place] 0[address] (Wo rk) 06/10/2022 Office Visit Dermatology Laura Scherer MD [facility] DR TEJA GR-DERMAT OLOGY [place], [place] [address] (Wo rk) documented as of [...] TYPE AND SCREEN Routine 08/09/2017 1:10 AM ([facility]/CGP/SHANDA) EST BASIC METABOLIC PANEL Routine 08/09/2017 1:10 [...] Glucose 160 65 - 199 [facility] mg/dL [facility] Comment: Supplemental ranges: <140 mg/dL before meals <180 mg/dL all other times of the day Specimen Anatomical Collection Method Collection Time Receive d Time (Source) Location / / Volume Laterality Blood specimen 08/16/2017 7:28 AM 018 7:28 (specimen) EST AM EST Yonathan Smith MD POINT OF CARE TEST ORDERABLE S Performing Organization Address City/State/Z[place] [address] (ABNORMAL) Differential, Automated (08/16/2017 5:08 AM EST) Patholo gist Method Time Signature Neutrophils % 73.9 % [facility] Neutr Abs (ANC) 5.37 1.70 - [facility] 6.10 [facility] x10(3)/[facility] LABORATORY Lymphocytes % 10.1 % [facility] Lymphocytes Abs 0.7 (L) 0.9 - 3.2 [facility] x10(3)/[facility] LABORATORY Monocytes % 10.1 % [facility] Monocyte Abs 0.7 0.3 - 0.9 [facility] x10(3)/[facility] LABORATORY Eosinophils % 5.1 % [facility] Eosinophils Abs 0.4 0.0 - 0.4 [facility] x10(3)/[facility] LABORATORY Basophils % 0.4 % [facility] Basophils Abs 0.0 0.0 - 0.1 [facility] x10(3)/[facility] LABORATORY Immature Gran % 0.40 % [facility]BS [...] Melisa Gran Abs 0.03 0.00 - 0.04 x10(3)/[facility] LABORATORY Specimen Anatomical Collection Method Collection Time Receive d Time (Source) Location / / Volume Laterality Blood specimen 08/16/2017 5:08 AM 018 5:20 (specimen) EST AM EST Resulting Agency Comment Spec In Lab Yonathan Smith MD HEMATOLOGY ORDERABLES Performing Organization Address City/State/[place] [address] (ABNORMAL) Hemogram (08/16/2017 5:08 AM EST) Analysis Performed At Patho logist Time Signature WBC 7.3 4.0 - 9.5 [facility] x10(3)/[facility] LABORATORY RBC 3.36 (L) 4.58 - [facility] 5.54 [facility] x10(6)/[facility] LABORATORY Hemoglobin 9.7 (L) 13.7 - [facility] 16.5 gm/dL [facility] Hematocrit 30.3 (L) 40.5 - [facility] 48.5 % [facility] MCV 90.2 82.9 - [facility] 93.1 [facility] LABORATORY MCH 28.9 27.5 - BARBARA RYAN 32.1 pg [facility] LABORATORY MCHC 32.0 32.0 - [facility] 35.7 gm/dL [facility] Platelets 282 145 - 357 [facility] x10(3)/[facility] LABORATORY RDWSD 53.9 (H) 36.0 - [facility] 45.0 [facility] LABORATORY RDWCV 16.5 (H) 11.4 - [facility] 13.8 % [facility] LABORATORY MPV 9.0 7.6 - 12.9 [facility] LABORATORY nRBC % Auto 0.0 % [facility] LAB[facility] nRBC Abs Auto 0.000 0.000 - [facility] 0.000 [facility] x10(3)/[facility] LABORATORY Specimen Anatomical Collection Method Collection Time Receive d Time (Source) Location / / Volume Laterality Blood specimen 08/16/2017 5:08 AM 018 5:20 (specimen) EST AM EST Resulting Agency Comment Spec In Lab Yonathan Smith MD HEMATOLOGY ORDERABLES Performing Organization Address City/State/[place] [address] (ABNORMAL) Basic Metabolic Panel (non-fasting) (08/16/2017 5:08 AM EST) athologist Signature Glucose Lvl 141 65 - 199 [facility] mg/dL [facility] Comment: Diabetes: >=200 mg/dL plus symp toms BUN 29 (H) 10 - 20 mg/dL [facility] Creatinine 1.25 0.80 - 1.50 mg/dL [facility] [...] estions. Chloride 99 98 - 107 mmol/L [facility] CO2 28 22 - 31 mmol/L [facility] Anion Gap 13 5 - 15 mmol/L [facility] Calcium 8.7 8.5 - 10.5 mg/dL [facility] Estimated GFR 57 (L) >=60 [facility] Comment: The reported eGFR should be multiplied b y 1.2 for patients. The MDRD is not an appropriate measure o f renal function for patients with body mass extremes or in patients with acute kidney failure. [email or web address] [email or web address] Specimen Anatomical Collection Method Collection Time Receive d Time (Source) Location / / Volume Laterality Blood specimen 08/16/2017 5:08 AM 018 5:20 (specimen) EST AM EST Resulting Agency Comment Spec In Lab Yonathan Smith MD CHEMISTRY ORDERABLES Performing Organization Address City/State/[place] [address] (ABNORMAL) Prothrombin Time (08/16/2017 5:08 AM EST) athologist Signature PT 25.2 (H) 11.8 - 14.0 [facility] LABORATORY INR 2.3 (H) 0.9 - 1.1 [facility] [...] Smith MD HEMATOLOGY ORDERABLES Performing Organization Address City/[facility]/ZIP Code Phon e Number [address] POCT Glucose (08/16/2017 4:09 AM EST) athologist Signature POC Glucose 147 65 - 199 [place] mg/dL [facility] Comment: Supplemental ranges: <140 mg/dL before meals <180 mg/dL all other times of the day Specimen Anatomical Collection Method Collection Time Receive d Time (Source) Location / / Volume Laterality Blood specimen 08/16/2017 4:09 AM 018 4:09 (specimen) EST AM EST Yonathan Smith MD POINT OF CARE TEST ORDERABLE S Performing Organization Address City/[facility]/[place] [address] POCT Glucose (08/15/2017 11:56 PM EST) athologist Signature POC Glucose 176 65 - 199 [place] mg/dL [facility] Comment: Supplemental ranges: <140 mg/dL before meals <180 mg/dL all other times of the day Specimen Anatomical Collection Method Collection Time Receive d Time (Source) Location / / Volume Laterality Blood specimen 08/15/2017 11:56 8 (specimen) PM EST 11:56 PM EST Yonathan Smith MD POINT OF CARE TEST ORDERABLE S Performing Organization Address City/State/[place] [address] POCT Glucose (08/15/2017 8:05 PM EST) athologist Signature POC Glucose 136 65 - 199 [place] mg/dL [facility] Comment: Supplemental ranges: <140 mg/dL before meals <180 mg/dL all other times of the day Specimen Anatomical Collection Method Collection Time Receive d Time (Source) Location / / Volume Laterality Blood specimen 08/15/2017 8:05 PM 018 8:05 (specimen) EST PM EST Yonathan Smith MD POINT OF CARE TEST ORDERABLE S Performing Organization Address City/State/ZIP Code Phon e Number [address] (ABNORMAL) POCT Glucose (08/15/2017 4:50 PM EST) athologist Signature POC Glucose 232 (H) 65 - 199 [place] mg/dL [facility] Comment: Supplemental ranges: <140 mg/dL before meals <180 mg/dL all other times of the day Specimen Anatomical Collection Method Collection Time Receive d Time (Source) Location / / Volume Laterality Blood specimen 08/15/2017 4:50 PM 018 4:50 (specimen) EST PM EST Yonathan Smith MD POINT OF CARE TEST ORDERABLE S Performing Organization Address City/[facility]/[place] [address] POCT Glucose (08/15/2017 12:04 PM EST) athologist Signature POC Glucose 135 65 - 199 [place] mg/dL [facility] Comment: Supplemental ranges: <140 mg/dL before meals <180 mg/dL all other times of the day Specimen Anatomical Collection Method Collection Time Receive d Time (Source) Location / / Volume Laterality Blood specimen 08/15/2017 12:04 8 (specimen) PM EST 12:04 PM EST Yonathan Smith MD POINT OF CARE TEST ORDERABLE S Performing Organization Address City/[facility]/[place] [address] POCT Glucose (08/15/2017 7:36 AM EST) athologist Signature POC Glucose 124 65 - 199 [place] mg/dL [facility] Comment: Supplemental ranges: <140 mg/dL before meals <180 mg/dL all other times of the day Specimen Anatomical Collection Method Collection Time Receive d Time (Source) Location / / Volume Laterality Blood specimen 08/15/2017 7:36 AM 018 7:36 (specimen) EST AM EST Yonathan Smith MD POINT OF CARE TEST ORDERABLE S Performing Organization Address City/State/[place] [address] (ABNORMAL) Differential, Automated (08/15/2017 6:22 AM EST) [facility] Method Time Signature Neutrophils % 76.1 % [facility] Neutr Abs (ANC) 6.62 (H) 1.70 - [facility] 6.10 [facility] x10(3)/[facility] L LABORATORY Lymphocytes % 9.3 % [facility] Lymphocytes Abs 0.8 (L) 0.9 - 3.2 [facility] x10(3)/[facility] LABORATORY Monocytes % 9.4 % [facility] Monocyte Abs 0.8 0.3 - 0.9 [facility] x10(3)/[facility] LABORATORY Eosinophils % 4.0 % [facility] Eosinophils Abs 0.4 0.0 - 0.4 [facility] x10(3)/[facility] LABORATORY Basophils % 0.6 % [facility] Basophils Abs 0.0 0.0 - 0.1 [facility] x10(3)/[facility] LABORATORY Immature Gran % 0.60 % [...] 0.05 (H) 0.00 - 0.04 x10(3)/[facility] LABORATORY Specimen Anatomical Collection Method Collection Time Receive d Time (Source) Location / / Volume Laterality Blood specimen 08/15/2017 6:22 AM 018 6:33 (specimen) EST AM EST Resulting Agency Comment Spec In Lab Yonathan Smith MD HEMATOLOGY ORDERABLES Performing Organization Address City/State/[place] [address] (ABNORMAL) Hemogram (08/15/2017 6:22 AM EST) Analysis Performed At Patho logist Time Signature WBC 8.7 4.0 - 9.5 [place] x10(3)/[facility] LABORATORY RBC 3.21 (L) 4.58 - [place] 5.54 [facility] x10(6)/[facility] LABORATORY Hemoglobin 9.1 (L) 13.7 [facility] 16.5 gm/dL [facility] Hematocrit 29.0 (L) 40.5 [facility] 48.5 % [facility] MCV 90.3 82.9 - [facility] 93.1 [facility] LABORATORY MCH 28.3 27.5 - [place] 32.1 pg [facility]ORY MCHC 31.4 (L) 32.0 - [place] 35.7 gm/dL [facility] Platelets 254 145 - 357 [facility] x10(3)/[facility] LABORATORY RDWSD 53.9 (H) 36.0 - [place] 45.0 [facility] LABORATORY RDWCV 16.3 (H) 11.4 - [facility] RYAN 13.8 % [facility] LABORATORY MPV 8.8 7.6 - 12.9 [facility] LABORATORY nRBC % Auto 0.0 % [facility] nRBC Abs Auto 0.000 0.000 - [place] 0.000 [facility] x10(3)/[facility] LABORATORY Specimen Anatomical Collection Method Collection Time Receive d Time (Source) Location / / Volume Laterality Blood specimen 08/15/2017 6:22 AM 018 6:33 (specimen) EST AM EST Resulting Agency Comment Spec In Lab Yonathan Smith MD HEMATOLOGY ORDERABLES Performing Organization Address City/State/[place] [address] (ABNORMAL) Basic Metabolic Panel (non-fasting) (08/15/2017 6:22 AM EST) P athologist Signature Glucose Lvl 118 65 - 199 [facility] mg/dL [facility] Comment: Diabetes: >=200 mg/dL plus symp toms BUN 27 (H) 10 - 20 mg/dL [facility] Creatinine 1.12 0.80 - 1.50 [...] Anion Gap 11 5 - 15 mmol/L [facility] Calcium 8.8 8.5 - 10.5 mg/dL [facility] Estimated GFR >60 >=60 [facility] Comment: The reported eGFR should be multiplied b y 1.2 for patients. The MDRD is not an appropriate measure o f renal function for patients with body mass extremes or in patients with acute kidney failure. [email or web address] [email or web address] Specimen Anatomical Collection Method Collection Time Receive d Time (Source) Location / / Volume Laterality Blood specimen 08/15/2017 6:22 AM 018 6:33 (specimen) EST AM EST Resulting Agency Comment Spec In Lab Yonathan Smith MD CHEMISTRY ORDERABLES Performing Organization Address City/State/[place] [address] (ABNORMAL) Prothrombin Time (08/15/2017 6:22 AM EST) P athologist Signature PT 21.9 (H) 11.8 - 14.0 [facility] LABORATORY INR 1.9 (H) 0.9 - 1.1 [facility] [...] Address City/State/ZIP Code Phon e Number [address] POCT Glucose (08/15/2017 4:33 AM EST) athologist Signature POC Glucose 164 65 - [address] [facility] Comment: Supplemental ranges: <140 mg/dL before meals <180 mg/dL all other times of the day Specimen Anatomical Collection Method Collection Time Receive d Time (Source) Location / / Volume Laterality Blood specimen 08/15/2017 4:33 AM 018 4:33 (specimen) EST AM EST Yonathan Smith MD POINT OF CARE TEST ORDERABLE S Performing Organization Address City/State/[place] [address] POCT Glucose (08/15/2017 12:12 AM EST) athologist Signature POC Glucose 89 65 - 199 [facility] RYAN mg/dL [facility] Comment: Supplemental ranges: <140 mg/dL before meals <180 mg/dL all other times of the day Specimen Anatomical Collection Method Collection Time Receive d Time (Source) Location / / Volume Laterality Blood specimen 08/15/2017 12:12 8 (specimen) AM EST 12:12 AM EST Yonathan Smith MD POINT OF CARE TEST ORDERABLE S Performing Organization Address City/State/[place] [address] (ABNORMAL) POCT Glucose (08/14/2017 8:07 PM EST) athologist Signature POC Glucose 204 (H) 65 - 199 [place] mg/dL [facility] Comment: Supplemental ranges: <140 mg/dL before meals <180 mg/dL all other times of the day Specimen Anatomical Collection Method Collection Time Receive d Time (Source) Location / / Volume Laterality Blood specimen 08/14/2017 8:07 PM 018 8:07 (specimen) EST PM EST Yonathan Smith MD POINT OF CARE TEST ORDERABLE S Performing Organization Address City/State/ZIP Code Phon e Number [address] POCT Glucose (08/14/2017 5:11 PM EST) athologist Signature POC Glucose 174 65 - [address] [facility] Comment: Supplemental ranges: <140 mg/dL before meals <180 mg/dL all other times of the day Specimen Anatomical Collection Method Collection Time Receive d Time (Source) Location / / Volume Laterality Blood specimen 08/14/2017 5:11 PM 018 5:11 (specimen) EST PM EST Yonathan Smith MD POINT OF CARE TEST ORDERABLE S Performing Organization Address City/State/ZIP Code Phon e Number [address] POCT Glucose (08/14/2017 12:10 PM EST) athologist Signature POC Glucose 141 65 - 199 [facility] RYAN mg/dL [facility] Comment: Supplemental ranges: <140 mg/dL before meals <180 mg/dL all other times of the day Specimen Anatomical Collection Method Collection Time Receive d Time (Source) Location / / Volume Laterality Blood specimen 08/14/2017 12:10 8 (specimen) PM EST 12:10 PM EST Yonathan Smith MD POINT OF CARE TEST ORDERABLE S Performing Organization Address City/State/ZIP Code Phon e Number [address] POCT Glucose (08/14/2017 8:07 AM EST) P athologist Signature POC Glucose 158 65 - 199 [facility] mg/dL [facility] Comment: Supplemental ranges: <140 mg/dL before meals <180 mg/dL all other times of the day Specimen Anatomical Collection Method Collection Time Receive d Time (Source) Location / / Volume Laterality Blood specimen 08/14/2017 8:07 AM 018 8:07 (specimen) EST AM EST Yonathan Smith MD POINT OF CARE TEST ORDERABLE S Performing Organization Address City/State/[place] [address] (ABNORMAL) Differential, Automated (08/14/2017 4:52 AM EST) Patholo gist Method Time Signature Neutrophils % 78.6 % [facility] Neutr Abs (ANC) 7.70 (H) 1.70 - [facility] 6.10 [facility] x10(3)/[facility] L LABORATORY Lymphocytes % 7.8 % [facility] Lymphocytes Abs 0.8 (L) 0.9 - 3.2 [facility] x10(3)/[facility] LABORATORY Monocytes % 8.8 % [facility] Monocyte Abs 0.9 0.3 - 0.9 [facility] x10(3)/[facility] LABORATORY Eosinophils % 4.0 % [facility] Eosinophils Abs 0.4 0.0 - 0.4 [facility] x10(3)/[facility] LABORATORY Basophils % 0.5 % [facility] Basophils Abs 0.0 0.0 - 0.1 [facility] x10(3)/[facility] LABORATORY Immature Gran % 0.30 % [facility] Comment: Immature granulocytes(IG's)percentage an d absolute count will include metamyelocytes, myelocytes, and promyelo cytes. Blood smears from CBCs yielding IG's will be scanned manually for concor dance. If this scan disagrees with the automated IG or if promyelocytes are not ed, a manual differential will be performed. Melias Gran Abs 0.03 0.00 - 0.04 x10(3)/[facility]ORATORY Specimen Anatomical Collection Method Collection Time Receive d Time (Source) Location / / Volume Laterality Blood specimen 08/14/2017 4:52 AM 018 5:08 (specimen) EST AM EST Resulting Agency Comment Spec In Lab Yonathan Smith MD HEMATOLOGY ORDERABLES Performing Organization Address City/State/[place] [address] (ABNORMAL) Hemogram (08/14/2017 4:52 AM EST) Analysis Performed At Patho logist Time Signature WBC 9.8 (H) 4.0 - 9.5 [facility] x10(3)/[facility] LABORATORY RBC 3.32 (L) 4.58 - [facility] 5.54 [facility] x10(6)/[facility] LABORATORY Hemoglobin 9.5 (L) 13.7 - [facility] 16.5 gm/dL [facility]ORY Hematocrit 30.3 (L) 40.5 - [facility] 48.5 % [facility]ORATORY MCV 91.3 82.9 - [facility] 93.1 [facility] LABORATORY MCH 28.6 27.5 - [facility] 32.1 pg [facility]ORY MCHC 31.4 (L) 32.0 - [facility] 35.7 gm/dL [facility] Platelets 263 145 - 357 [facility] x10(3)/[facility] LABORATORY RDWSD 54.8 (H) 36.0 - [facility] 45.0 [facility] LABORATORY RDWCV 16.5 (H) 11.4 - [facility] 13.8 % [facility]ORY MPV 9.1 7.6 - 12.9 [facility] LABORATORY nRBC % Auto 0.0 % [facility] nRBC Abs Auto 0.000 0.000 - [facility] 0.000 [facility] x10(3)/[facility] LABORATORY Specimen Anatomical Collection Method Collection Time Receive d Time (Source) Location / / Volume Laterality Blood specimen 08/14/2017 4:52 AM 018 5:08 (specimen) EST AM EST Resulting Agency Comment Spec In Lab Yonathan Smith MD HEMATOLOGY ORDERABLES Performing Organization Address City/[facility]/[place] [address] (ABNORMAL) Prothrombin Time (08/14/2017 [...] Organization Address City/State/[place] [address] (ABNORMAL) Basic Metabolic Panel (non-fasting) (08/14/2017 4:52 AM EST) P athologist Signature Glucose Lvl 135 65 - 199 [facility] mg/dL [facility] Comment: Diabetes: >=200 mg/dL plus symp toms BUN 25 (H) 10 - 20 mg/dL [facility] Creatinine 1.36 0.80 - 1.50 mg/dL [facility] HOSPITAL LABORATORY Estimated GFR 52 (L) >=60 [facility] Comment: The reported eGFR should be multiplied b y 1.2 for patients. The MDRD is not an appropriate measure o f renal function for patients with body mass extremes or in patients with acute kidney failure. [email or web address] [email or web address] Specimen Anatomical Collection Method Collection Time Receive d Time (Source) Location / / Volume Laterality Blood specimen 08/14/2017 4:52 AM 018 5:08 (specimen) EST AM EST Resulting Agency Comment Spec In Lab Yonathan Smith MD CHEMISTRY ORDERABLES Performing Organization Address City/[facility]/ZIP Code Phon e Number [address] POCT Glucose (08/14/2017 3:56 AM EST) athologist Signature POC Glucose 135 65 - 199 [facility] mg/dL [facility] Comment: Supplemental ranges: <140 mg/dL before meals <180 mg/dL all other times of the day Specimen Anatomical Collection Method Collection Time Receive d Time (Source) Location / / Volume Laterality Blood specimen 08/14/2017 3:56 AM 018 3:56 (specimen) EST AM EST Yonathan Smith MD POINT OF CARE TEST ORDERABLE S Performing Organization Address City/[facility]/ZIP Code Phon e Number [address] POCT Glucose (08/13/2017 11:13 PM EST) athologist Signature POC Glucose 118 65 - 199 [facility] mg/dL [facility] Comment: Supplemental ranges: <140 mg/dL before meals <180 mg/dL all other times of the day Specimen Anatomical Collection Method Collection Time Receive d Time (Source) Location / / Volume Laterality Blood specimen 08/13/2017 11:13 8 (specimen) PM EST 11:13 PM EST Yonathan Smith MD POINT OF CARE TEST ORDERABLE S Performing Organization Address City/State/[place] [address] (ABNORMAL) POCT Glucose (08/13/2017 8:08 PM EST) athologist Signature POC Glucose 204 (H) 65 - 199 [place] mg/dL [facility] Comment: Supplemental ranges: <140 mg/dL before meals <180 mg/dL all other times of the day Specimen Anatomical Collection Method Collection Time Receive d Time (Source) Location / / Volume Laterality Blood specimen 08/13/2017 8:08 PM 018 8:08 (specimen) EST PM EST Yonathan Smith MD POINT OF CARE TEST ORDERABLE S Performing Organization Address City/[facility]/[place] [address] POCT Glucose (08/13/2017 4:02 PM EST) athologist Signature POC Glucose 145 65 - 199 [place]HA[place] mg/dL [facility] Comment: Supplemental ranges: <140 mg/dL before meals <180 mg/dL all other times of the day Specimen Anatomical Collection Method Collection Time Receive d Time (Source) Location / / Volume Laterality Blood specimen 08/13/2017 4:02 PM 018 4:02 (specimen) EST PM EST Yonathan Smith MD POINT OF CARE TEST ORDERABLE S Performing Organization Address City/State/[place] [address] POCT Glucose (08/13/2017 11:31 AM EST) athologist Signature POC Glucose 179 65 - 199 [place] mg/dL [facility] Comment: Supplemental ranges: <140 mg/dL before meals <180 mg/dL all other times of the day Specimen Anatomical Collection Method Collection Time Receive d Time (Source) Location / / Volume Laterality Blood specimen 08/13/2017 11:31 8 (specimen) AM EST 11:31 AM EST Yonathan Smith MD POINT OF CARE TEST ORDERABLE S Performing Organization Address City/[facility]/[place] [address] (ABNORMAL) POCT Glucose (08/13/2017 10:16 AM EST) P athologist Signature POC Glucose 211 (H) 65 - 199 [facility] mg/dL [facility] Comment: Supplemental ranges: <140 mg/dL before meals <180 mg/dL all other times of the day Specimen Anatomical Collection Method Collection Time Receive d Time (Source) Location / / Volume Laterality Blood specimen 08/13/2017 10:16 8 (specimen) AM EST 10:16 AM EST Yonathan Smith MD POINT OF CARE TEST ORDERABLE S Performing Organization Address City/State/[place] [address] JULIAN, legs, multiple levels (08/13/2017 7:42 AM EST) Component Value Ref Test Analysis Performed At Patholo gist Range Method Time Signature VB Text Department: Vascular Surgery Lab VASCUBASE Report Patient: [id number] (GREGORY HOANG) CPT: 40707 ICD10: I99.8 Referring Physician: YONATHAN SMTIH ?? Indications: s/p R 1,2,3 toe amps with red left foot, need n ew baseline Diabetes mellitus: yes ICD10 Diagnosis Code: I99.8 Findings: Right ?Pressure (mm Hg) ?? JULIAN ??Waveform ?TBI ?? Brachial Artery ?138 ? Dorsalis Pedis (Ankle) Arter y ?132 ? 0.94 ??Maverick- Biphasic ? Posterior Tibial (Ankle) Art anila ??154 ? 1.10 ??Maverick-Biphasic ? Fourth Toe ? 67 ? 0.48 [...] Glucose 156 65 - 199 [facility] mg/dL [facility] Comment: Supplemental ranges: <140 mg/dL before meals <180 mg/dL all other times of the day Specimen Anatomical Collection Method Collection Time Receive d Time (Source) Location / / Volume Laterality Blood specimen 08/13/2017 7:33 AM 018 7:33 (specimen) EST AM EST Yonathan Smith MD POINT OF CARE TEST ORDERABLE S Performing Organization Address City/State/[place] [address] (ABNORMAL) Differential, Automated (08/13/2017 5:33 AM EST) Patholo gist Method Time Signature Neutrophils % 77.8 % [facility] Neutr Abs (ANC) 7.83 (H) 1.70 - [facility] 6.10 [facility] x10(3)/[facility] L LABORATORY Lymphocytes % 8.4 % [facility] Lymphocytes Abs 0.8 (L) 0.9 - 3.2 [facility] x10(3)/[facility] LABORATORY Monocytes % 8.3 % [facility] Monocyte Abs 0.8 0.3 - 0.9 [facility] x10(3)/[facility] LABORATORY Eosinophils % 4.6 % [facility] Eosinophils Abs 0.5 (H) 0.0 - 0.4 [facility] x10(3)/[facility] LABORATORY Basophils % 0.5 % [facility] Basophils Abs 0.0 0.0 - 0.1 [facility] x10(3)/[facility] LABORATORY Immature Gran % 0.40 % [facility]BS [...] Melisa Gran Abs 0.04 0.00 - 0.04 x10(3)/[facility] LABORATORY Specimen Anatomical Collection Method Collection Time Receive d Time (Source) Location / / Volume Laterality Blood specimen 08/13/2017 5:33 AM 018 6:04 (specimen) EST AM EST Resulting Agency Comment Spec In Lab Yonathan mSith MD HEMATOLOGY ORDERABLES Performing Organization Address City/State/[place] [address] (ABNORMAL) Hemogram (08/13/2017 5:33 AM EST) Analysis Performed At Patho logist Time Signature WBC 10.1 (H) 4.0 - 9.5 [facility] x10(3)/[facility] LABORATORY RBC 3.21 (L) 4.58 - [facility] 5.54 [facility] x10(6)/[facility] LABORATORY Hemoglobin 9.2 (L) 13.7 - [place] 16.5 gm/dL [facility] LABORATORY Hematocrit 29.6 (L) 40.5 - [place] DAVIS 48.5 % [facility] LABORATORY MCV 92.2 82.9 - [facility] 93.1 [facility] LABORATORY MCH 28.7 27.5 - [place] 32.1 pg [facility] LABORATORY MCHC 31.1 (L) 32.0 - [place] RYAN 35.7 gm/dL [facility] LABORATORY Platelets 263 145 - 357 [facility] x10(3)/[facility] LABORATORY RDWSD 54.8 (H) 36.0 - [facility] RYAN 45.0 [facility] LABORATORY RDWCV 16.4 (H) 11.4 - [facility] RYAN 13.8 % [facility] LABORATORY MPV 9.2 7.6 - 12.9 [facility] LABORATORY nRBC % Auto 0.0 % [facility] LABORATORY nRBC Abs Auto 0.000 0.000 - [facility] RYAN 0.000 [facility] x10(3)/[facility] LABORATORY Specimen Anatomical Collection Method Collection Time Receive d Time (Source) Location / / Volume Laterality Blood specimen 08/13/2017 5:33 AM 018 6:04 (specimen) EST AM EST Resulting Agency Comment Spec In Lab Yonathan Smith MD HEMATOLOGY ORDERABLES Performing Organization Address City/State/[place] [address] (ABNORMAL) Prothrombin Time (08/13/2017 5:33 AM EST) P athologist Signature PT 17.3 (H) 11.8 - 14.0 [facility] LABORATORY INR 1.4 (H) 0.9 - 1.1 [facility] [...] Address City/State/[place] [address] (ABNORMAL) Basic Metabolic Panel (non-fasting) (08/13/2017 5:33 AM EST) athologist Signature Glucose Lvl 126 65 - 199 [facility] mg/dL [facility] LABORATORY Comment: Diabetes: >=200 mg/dL plus symp toms BUN 18 10 - 20 mg/dL [facility] LABORATORY Creatinine 1.16 0.80 - 1.50 mg/dL [facility] [...] Anion Gap 12 5 - 15 mmol/L [facility] LABORATORY Calcium 7.9 (L) 8.5 - 10.5 mg/dL [facility] LABORATORY Estimated GFR >60 >=60 [facility] LABORATORY Comment: The reported eGFR should be multiplied b y 1.2 for patients. The MDRD is not an appropriate measure o f renal function for patients with body mass extremes or in patients with acute kidney failure. [email or web address] Specimen Anatomical Collection Method Collection Time Receive d Time (Source) Location / / Volume Laterality Blood specimen 08/13/2017 5:33 AM 018 6:04 (specimen) EST AM EST Resulting Agency Comment Spec In Lab Yonathna Smith MD CHEMISTRY ORDERABLES Performing Organization Address City/[facility]/ZIP Code Phon e Number [address] POCT Glucose (08/13/2017 4:29 AM EST) athologist Signature POC Glucose 111 65 - 199 [place] RYAN mg/dL [facility] LABORATORY Comment: Supplemental ranges: <140 mg/dL before meals <180 mg/dL all other times of the day Specimen Anatomical Collection Method Collection Time Receive d Time (Source) Location / / Volume Laterality Blood specimen 08/13/2017 4:29 AM 018 4:29 (specimen) EST AM EST Yonathan Smith MD POINT OF CARE TEST ORDERABLE S Performing Organization Address City/[facility]/[place] [address] POCT Glucose (08/12/2017 11:28 PM EST) athologist Signature POC Glucose 164 65 - 199 [place] RYAN mg/dL [facility] LABORATORY Comment: Supplemental ranges: <140 mg/dL before meals <180 mg/dL all other times of the day Specimen Anatomical Collection Method Collection Time Receive d Time (Source) Location / / Volume Laterality Blood specimen 08/12/2017 11:28 8 (specimen) PM EST 11:28 PM EST Yonathan Smith MD POINT OF CARE TEST ORDERABLE S Performing Organization Address City/[facility]/[place] [address] (ABNORMAL) POCT Glucose (08/12/2017 7:40 PM EST) athologist Signature POC Glucose 209 (H) 65 - 199 [place] RYAN mg/dL [facility] LABORATORY Comment: Supplemental ranges: <140 mg/dL before meals <180 mg/dL all other times of the day Specimen Anatomical Collection Method Collection Time Receive d Time (Source) Location / / Volume Laterality Blood specimen 08/12/2017 7:40 PM 018 7:40 (specimen) EST PM EST Yonathan Smith MD POINT OF CARE TEST ORDERABLE S Performing Organization Address City/[facility]/ZIP Code Phon e Number [address] POCT Glucose (08/12/2017 4:24 PM EST) athologist Signature POC Glucose 161 65 - 199 [place] ZHAORYAN mg/dL [facility] LABORATORY Comment: Supplemental ranges: <140 mg/dL before meals <180 mg/dL all other times of the day Specimen Anatomical Collection Method Collection Time Receive d Time (Source) Location / / Volume Laterality Blood specimen 08/12/2017 4:24 PM 018 4:24 (specimen) EST PM EST Yonathan Smith MD POINT OF CARE TEST ORDERABLE S Performing Organization Address City/[facility]/ZIP Code Phon e Number [address] POCT Glucose (08/12/2017 12:00 PM EST) athologist Signature POC Glucose 167 65 - 199 [place] RYAN mg/dL [facility] LABORATORY Comment: Supplemental ranges: <140 mg/dL before meals <180 mg/dL all other times of the day Specimen Anatomical Collection Method Collection Time Receive d Time (Source) Location / / Volume Laterality Blood specimen 08/12/2017 12:00 8 (specimen) PM EST 12:00 PM EST Yonathan Smith MD POINT OF CARE TEST ORDERABLE S Performing Organization Address City/[facility]/ZIP Code Phon e Number [address] POCT Glucose (08/12/2017 7:25 AM EST) athologist Signature POC Glucose 152 65 - 199 [place] ZHAORY[place] mg/dL [facility] LABORATORY Comment: Supplemental ranges: <140 mg/dL before meals <180 mg/dL all other times of the day Specimen Anatomical Collection Method Collection Time Receive d Time (Source) Location / / Volume Laterality Blood specimen 08/12/2017 7:25 AM 018 7:25 (specimen) EST AM EST Yonathan Smith MD POINT OF CARE TEST ORDERABLE S Performing Organization Address City/State/[place] [address] (ABNORMAL) Differential, Automated (08/12/2017 6:29 AM EST) [facility] Method Time Signature Neutrophils % 78.7 % [facility] LABORATORY Neutr Abs (ANC) 7.94 (H) 1.70 - [facility] 6.10 [facility] x10(3)/[facility] LABORATORY Lymphocytes % 8.8 % [facility] LABORATORY Lymphocytes Abs 0.9 0.9 - 3.2 [facility] x10(3)/[facility] LABORATORY Monocytes % 7.8 % [facility] LABORATORY Monocyte Abs 0.8 0.3 - 0.9 [facility] x10(3)/[facility] LABORATORY Eosinophils % 3.9 % [facility] LABORATORY Eosinophils Abs 0.4 0.0 - 0.4 [facility] x10(3)/[facility] LABORATORY Basophils % 0.3 % [facility] LABORATORY Basophils Abs 0.0 0.0 - 0.1 [facility] x10(3)/[facility] LABORATORY Immature Gran % 0.50 % [facility] LABORATORY Comment: Immature granulocytes(IG's)percentage an d absolute count will include metamyelocytes, myelocytes, and promyelo cytes. Blood smears from CBCs yielding IG's will be scanned manually for concor dance. If this scan disagrees with the automated IG or if promyelocytes are not ed, a manual differential will be performed. Melisa Gran Abs 0.05 (H) 0.00 - 0.04 x10(3)/[facility] LABORATORY Specimen Anatomical Collection Method Collection Time Receive d Time (Source) Location / / Volume Laterality Blood specimen 08/12/2017 6:29 AM 018 6:38 (specimen) EST AM EST Resulting Agency Comment Spec In Lab Yonathan Smith MD HEMATOLOGY ORDERABLES Performing Organization Address City/[facility]/ZIP [place] [address] (ABNORMAL) Hemogram (08/12/2017 6:29 AM EST) Analysis Performed At Patho logist Time Signature WBC 10.1 (H) 4.0 - 9.5 [facility] x10(3)/[facility] LABORATORY RBC 3.02 (L) 4.58 - [facility] 5.54 [facility] x10(6)/[facility] LABORATORY Hemoglobin 8.7 (L) 13.7 - [facility] 16.5 gm/dL [facility] LABORATORY Hematocrit 28.1 (L) 40.5 - [facility] 48.5 % [facility] LABORATORY MCV 93.0 82.9 - [facility] 93.1 [facility] LABORATORY MCH 28.8 27.5 - [facility] 32.1 pg [facility] LABORATORY MCHC 31.0 (L) 32.0 - [facility] 35.7 gm/dL [facility] LABORATORY Platelets 223 145 - 357 [facility] x10(3)/[facility] LABORATORY RDWSD 56.1 (H) 36.0 - [facility] 45.0 [facility] LABORATORY RDWCV 16.4 (H) 11.4 - [facility] 13.8 % [facility] LABORATORY MPV 9.0 7.6 - 12.9 [facility] LABORATORY nRBC % Auto 0.0 % [facility] LABORATORY nRBC Abs Auto 0.000 0.000 - [facility] 0.000 [facility] x10(3)/[facility] LABORATORY Specimen Anatomical Collection Method Collection Time Receive d Time (Source) Location / / Volume Laterality Blood specimen 08/12/2017 6:29 AM 018 6:38 (specimen) EST AM EST Resulting Agency Comment Spec In Lab Yonathan Smith MD HEMATOLOGY ORDERABLES Performing Organization Address City/State/[place] [address] (ABNORMAL) Prothrombin Time (08/12/2017 [...] City/State/ZIP Code Phon e Number [place] [phone] (ABNORMAL) Basic Metabolic Panel (non-fasting) (08/12/2017 6:29 AM EST) athologist Signature Glucose Lvl 151 65 - 199 [facility] mg/dL [facility] LABORATORY Comment: Diabetes: >=200 mg/dL plus symp toms BUN 18 10 - 20 mg/dL [facility] LABORATORY Creatinine 1.11 0.80 - 1.50 mg/dL [facility] [...] estions. Chloride 99 98 - 107 mmol/L [facility] LABORATORY CO2 28 22 - 31 mmol/L [facility] LABORATORY Anion Gap 11 5 - 15 mmol/L [facility] LABORATORY Calcium 7.9 (L) 8.5 - 10.5 mg/dL [facility] LABORATORY Estimated GFR >60 >=60 [facility] LABORATORY Comment: The reported eGFR should be multiplied b y 1.2 for patients. The MDRD is not an appropriate measure o f renal function for patients with body mass extremes or in patients with acute kidney failure. [email or web address] [email or web address] Specimen Anatomical Collection Method Collection Time Receive d Time (Source) Location / / Volume Laterality Blood specimen 08/12/2017 6:29 AM 018 6:38 (specimen) EST AM EST Resulting Agency Comment Spec In Lab Yonathan Smith MD CHEMISTRY ORDERABLES Performing Organization Address City/[facility]/ZIP [facility] Phon e Number [address] POCT Glucose (08/12/2017 4:08 AM EST) athologist Signature POC Glucose 181 65 - 199 [facility] mg/dL [facility] LABORATORY Comment: Supplemental ranges: <140 mg/dL before meals <180 mg/dL all other times of the day Specimen Anatomical Collection Method Collection Time Receive d Time (Source) Location / / Volume Laterality Blood specimen 08/12/2017 4:08 AM 018 4:08 (specimen) EST AM EST Yonathan Smith MD POINT OF CARE TEST ORDERABLE S Performing Organization Address City/[facility]/[place] [address] (ABNORMAL) POCT Glucose (08/12/2017 12:17 AM EST) athologist Signature POC Glucose 221 (H) 65 - [address] [address] LABORATORY Comment: Supplemental ranges: <140 mg/dL before meals <180 mg/dL all other times of the day Specimen Anatomical Collection Method Collection Time Receive d Time (Source) Location / / Volume Laterality Blood specimen 08/12/2017 12:17 8 (specimen) AM EST 12:17 AM EST Yonathan Smith MD POINT OF CARE TEST ORDERABLE S Performing Organization Address City/[facility]/[place] [address] (ABNORMAL) POCT Glucose (08/11/2017 8:52 PM EST) athologist Signature POC Glucose 221 (H) 65 - [address] [facility] mg/dL [facility] LABORATORY Comment: Supplemental ranges: <140 mg/dL before meals <180 mg/dL all other times of the day Specimen Anatomical Collection Method Collection Time Receive d Time (Source) Location / / Volume Laterality Blood specimen 08/11/2017 8:52 PM 018 8:52 (specimen) EST PM EST Yonathan Smith MD POINT OF CARE TEST ORDERABLE S Performing Organization Address City/State/[place] [address] POCT Glucose (08/11/2017 5:59 PM EST) athologist Signature POC Glucose 169 65 - [address] [address] [facility] mg/dL [facility] LABORATORY Comment: Supplemental ranges: <140 mg/dL before meals <180 mg/dL all other times of the day Specimen Anatomical Collection Method Collection Time Receive d Time (Source) Location / / Volume Laterality Blood specimen 08/11/2017 5:59 PM 018 5:59 (specimen) EST PM EST Yonathan Smith MD POINT OF CARE TEST ORDERABLE S Performing Organization Address City/[facility]/[place] [address] (ABNORMAL) POCT Glucose (08/11/2017 4:08 PM EST) athologist Signature POC Glucose 240 (H) 65 - [address] [facility] mg/dL [facility] LABORATORY Comment: Supplemental ranges: <140 mg/dL before meals <180 mg/dL all other times of the day Specimen Anatomical Collection Method Collection Time Receive d Time (Source) Location / / Volume Laterality Blood specimen 08/11/2017 4:08 PM 018 4:08 (specimen) EST PM EST Yonathan Smith MD POINT OF CARE TEST ORDERABLE S Performing Organization Address City/State/[place] [address] POCT Glucose (08/11/2017 12:04 PM EST) athologist Signature POC Glucose 182 65 - [address] [facility] mg/dL [facility] LABORATORY Comment: Supplemental ranges: <140 mg/dL before meals <180 mg/dL all other times of the day Specimen Anatomical Collection Method Collection Time Receive d Time (Source) Location / / Volume Laterality Blood specimen 08/11/2017 12:04 8 (specimen) PM EST 12:04 PM EST Yonathan Smith MD POINT OF CARE TEST ORDERABLE S Performing Organization Address City/State/ZIP Code Phon e Number [address] POCT Glucose (08/11/2017 7:31 AM EST) athologist [facility] POC Glucose 156 65 - [address] [facility] mg/dL [facility] LABORATORY Comment: Supplemental ranges: <140 mg/dL before meals <180 mg/dL all other times of the day Specimen Anatomical Collection Method Collection Time Receive d Time (Source) Location / / Volume Laterality Blood specimen 08/11/2017 7:31 AM 018 7:31 (specimen) EST AM EST Yonathan Smith MD POINT OF CARE TEST ORDERABLE S Performing Organization Address City/State/ZIP Code Phon e Number [address] (ABNORMAL) Differential, Automated (08/11/2017 6:16 AM EST) [facility] gist Method Time Signature Neutrophils % 83.7 % [facility] LABORATORY Neutr Abs (ANC) 10.76 (H) 1.70 - [facility] 6.10 [facility] x10(3)/[facility] L LABORATORY Lymphocytes % 6.0 % [facility] LABORATORY Lymphocytes Abs 0.8 (L) 0.9 - 3.2 [facility] x10(3)/[facility] LABORATORY Monocytes % 7.5 % [facility] LABORATORY Monocyte Abs 1.0 (H) 0.3 - 0.9 [facility] x10(3)/[facility] LABORATORY Eosinophils % 2.0 % [facility] LABORATORY Eosinophils Abs 0.3 0.0 - 0.4 [facility] x10(3)/[facility] LABORATORY Basophils % 0.3 % [facility] LABORATORY Basophils Abs 0.0 0.0 - 0.1 [facility] x10(3)/[facility] LABORATORY Immature Gran % 0.50 % [facility] LABORATORY Comment: Immature granulocytes(IG's)percentage an d absolute count will include metamyelocytes, myelocytes, and promyelo cytes. Blood smears from CBCs yielding IG's will be scanned manually for concor dance. If this scan disagrees with the automated IG or if promyelocytes are not ed, a manual differential will be performed. Melisa Gran Abs 0.06 (H) 0.00 - 0.04 x10(3)/[facility] LABORATORY Specimen Anatomical Collection Method Collection Time Receive d Time (Source) Location / / Volume Laterality Blood specimen 08/11/2017 6:16 AM 018 6:24 (specimen) EST AM EST Resulting Agency Comment Spec In Lab Yonathan Smith MD HEMATOLOGY ORDERABLES Performing Organization Address City/State/[place] [address] (ABNORMAL) Hemogram (08/11/2017 6:16 AM EST) Analysis Performed At Patho logist Time Signature WBC 12.9 (H) 4.0 - 9.5 [facility] x10(3)/[facility] LABORATORY RBC 3.28 (L) 4.58 - [facility] 5.54 [facility] x10(6)/[facility] LABORATORY Hemoglobin 9.5 (L) 13.7 - [facility] 16.5 gm/dL [facility] LABORATORY Hematocrit 29.8 (L) 40.5 - [facility] 48.5 % [facility] LABORATORY MCV 90.9 82.9 - [facility] 93.1 fL [facility] LABORATORY MCH 29.0 27.5 - [facility] 32.1 pg [facility] LABORATORY MCHC 31.9 (L) 32.0 - [facility] 35.7 gm/dL [facility] LABORATORY Platelets 236 145 - 357 [facility] x10(3)/[facility] LABORATORY RDWSD 53.5 (H) 36.0 - [facility] 45.0 [facility] LABORATORY RDWCV 16.3 (H) 11.4 - [place] 13.8 % [facility] LABORATORY MPV 8.8 7.6 - 12.9 [facility] LABORATORY nRBC % Auto 0.0 % [facility] LABORATORY nRBC Abs Auto 0.000 0.000 - [place] RYAN 0.000 [facility] x10(3)/[facility] LABORATORY Specimen Anatomical Collection Method Collection Time Receive d Time (Source) Location / / Volume Laterality Blood specimen 08/11/2017 6:16 AM 018 6:24 (specimen) EST AM EST Resulting Agency Comment Spec In Lab Yonathan Smith MD HEMATOLOGY ORDERABLES Performing Organization Address City/[facility] [place] [address] (ABNORMAL) Prothrombin Time (08/11/2017 [...] Smith MD HEMATOLOGY ORDERABLES Performing Organization Address City/[facility]/ZIP [facility] [place] [address] Basic Metabolic Panel (non-fasting) (08/11/2017 6:16 AM EST) P athologist Signature Glucose Lvl 139 65 - 199 [facility] mg/dL [facility] LABORATORY Comment: Diabetes: >=200 mg/dL plus symp toms BUN 12 10 - 20 mg/dL [facility] LABORATORY Creatinine 0.91 0.80 - 1.50 mg/dL [facility] [...] or in patients with acute kidney failure. [email or web address] Specimen Anatomical Collection Method Collection Time Receive d Time (Source) Location / / Volume Laterality Blood specimen 08/11/2017 6:16 AM 018 6:24 (specimen) EST AM EST Resulting Agency Comment Spec In Lab Yonathan Smith MD CHEMISTRY ORDERABLES Performing Organization Address City/State/[place] [address] POCT Glucose (08/11/2017 4:07 AM EST) athologist Signature POC Glucose 162 65 - 199 [facility] mg/dL [facility] LABORATORY Comment: Supplemental ranges: <140 mg/dL before meals <180 mg/dL all other times of the day Specimen Anatomical Collection Method Collection Time Receive d Time (Source) Location / / Volume Laterality Blood specimen 08/11/2017 4:07 AM 018 4:07 (specimen) EST AM EST Yonathan Smith MD POINT OF CARE TEST ORDERABLE S Performing Organization Address City/[facility]/[place] [address] POCT Glucose (08/10/2017 11:59 PM EST) athologist Signature POC Glucose 166 65 - 199 [place] mg/dL [facility] LABORATORY Comment: Supplemental ranges: <140 mg/dL before meals <180 mg/dL all other times of the day Specimen Anatomical Collection Method Collection Time Receive d Time (Source) Location / / Volume Laterality Blood specimen 08/10/2017 11:59 8 (specimen) PM EST 11:59 PM EST Yonathan Smith MD POINT OF CARE TEST ORDERABLE S Performing Organization Address City/State/ZIP Code Phon e Number [address] POCT Glucose (08/10/2017 8:12 PM EST) athologist Signature POC Glucose 156 65 - 199 [facility] mg/dL [facility] LABORATORY Comment: Supplemental ranges: <140 mg/dL before meals <180 mg/dL all other times of the day Specimen Anatomical Collection Method Collection Time Receive d Time (Source) Location / / Volume Laterality Blood specimen 08/10/2017 8:12 PM 018 8:12 (specimen) EST PM EST Yonathan Smith MD POINT OF CARE TEST ORDERABLE S Performing Organization Address City/State/[place] [address] (ABNORMAL) POCT Glucose (08/10/2017 4:42 PM EST) athologist Signature POC Glucose 211 (H) 65 - 199 [facility] mg/dL [facility] LABORATORY Comment: Supplemental ranges: <140 mg/dL before meals <180 mg/dL all other times of the day Specimen Anatomical Collection Method Collection Time Receive d Time (Source) Location / / Volume Laterality Blood specimen 08/10/2017 4:42 PM 018 4:42 (specimen) EST PM EST Yonathan Smith MD POINT OF CARE TEST ORDERABLE S Performing Organization Address City/State/ZIP Code Phon e Number [place] [phone]OS[address]ORY [address] (ABNORMAL) Differential, Automated (08/10/2017 2:30 PM EST) [facility] Method Time Signature Neutrophils % 87.6 % [facility] LABORATORY Neutr Abs (ANC) 9.90 (H) 1.70 - [facility] 6.10 [facility] x10(3)/[facility] L LABORATORY Lymphocytes % 4.3 % [facility] LABORATORY Lymphocytes Abs 0.5 (L) 0.9 - 3.2 [facility] x10(3)/[facility] LABORATORY Monocytes % 6.0 % [facility] [facility] Monocyte Abs 0.7 0.3 - 0.9 [facility] x10(3)/[facility] LABORATORY Eosinophils % 1.1 % [facility] Eosinophils Abs 0.1 0.0 - 0.4 [facility] x10(3)/[facility] LABORATORY Basophils % 0.4 % [facility] Basophils Abs 0.0 0.0 - 0.1 [facility] x10(3)/[facility] LABORATORY Immature Gran % 0.60 % [...] 0.07 (H) 0.00 - 0.04 x10(3)/[facility] LABORATORY Specimen Anatomical Collection Method Collection Time Receive d Time (Source) Location / / Volume Laterality Blood specimen 08/10/2017 2:30 PM 018 2:48 (specimen) EST PM EST Resulting Agency Comment Spec In Lab Yonathan Smith MD HEMATOLOGY ORDERABLES Performing Organization Address City/State/ZIP Code Phon e Number [address] (ABNORMAL) Hemogram (08/10/2017 2:30 PM EST) Analysis Performed At Patho logist Time Signature WBC 11.3 (H) 4.0 - 9.[address] [facility](3[facility] LABORATORY RBC 3.13 (L) 4.58 - [place] RYAN 5.54 [facility] x10(6)/[facility] LABORATORY Hemoglobin 8.9 (L) 13.7 - [facility] 16.5 gm/dL [facility] LABORATORY Hematocrit 28.4 (L) 40.5 - [facility] 48.5 % [facility] LABORATORY MCV 90.7 82.9 [facility] 93.1 [facility] LABORATORY MCH 28.4 27.5 - [place] R[place] 32.1 pg [facility] LABORATORY MCHC 31.3 (L) 32.0 - [place] R[place] 35.7 gm/dL [facility] LABORATORY Platelets 213 145 - 357 [facility] x10(3)/[facility] LABORATORY RDWSD 53.7 (H) 36.0 - [place] RYAN 45.0 [facility] LABORATORY RDWCV 16.4 (H) 11.4 - [facility] RYAN 13.8 % [facility] LABORATORY MPV 8.9 7.6 - 12.9 [place] R[place] [facility] LABORATORY nRBC % Auto 0.0 % [facility] nRBC Abs Auto 0.000 0.000 - [place] RYAN 0.000 [facility] x10(3)/[facility] LABORATORY Specimen Anatomical Collection Method Collection Time Receive d Time (Source) Location / / Volume Laterality Blood specimen 08/10/2017 2:30 PM 018 2:48 (specimen) EST PM EST Resulting Agency Comment Spec In Lab Yonathan Smith MD HEMATOLOGY ORDERABLES Performing Organization Address City/State/[place] [address] (ABNORMAL) POCT Glucose (08/10/2017 1:50 PM EST) athologist Signature POC Glucose 243 (H) 65 - [address] [facility] mg/dL [facility] LABORATORY Comment: Supplemental ranges: <140 mg/dL before meals <180 mg/dL all other times of the day Specimen Anatomical Collection Method Collection Time Receive d Time (Source) Location / / Volume Laterality Blood specimen 08/10/2017 1:50 PM 018 1:50 (specimen) EST PM EST Yonathan Smith MD POINT OF CARE TEST ORDERABLE S Performing Organization Address City/State/ZIP Code Phon e Number [address] POCT Glucose (08/10/2017 11:21 AM EST) athologist Signature POC Glucose 156 65 - 199 [facility] mg/dL [facility] LABORATORY Comment: Supplemental ranges: <140 mg/dL before meals <180 mg/dL all other times of the day Specimen Anatomical Collection Method Collection Time Receive d Time (Source) Location / / Volume Laterality Blood specimen 08/10/2017 11:21 8 (specimen) AM EST 11:21 AM EST Yontahan Smith MD POINT OF CARE TEST ORDERABLE S Performing Organization Address City/State/ZIP Code Phon e Number [address] (ABNORMAL) Differential, Automated (08/10/2017 10:28 AM EST) [facility] gist Method Time Signature Neutrophils % 85.3 % [facility] Neutr Abs (ANC) 9.43 (H) 1.70 - [facility] 6.10 [facility] x10(3)/[facility] LABORATORY Lymphocytes % 5.5 % [facility] Lymphocytes Abs 0.6 (L) 0.9 - 3.2 [facility] x10(3)/[facility] LABORATORY Monocytes % 5.9 % [facility] Monocyte Abs 0.6 0.3 - 0.9 [facility] x10(3)/[facility] LABORATORY Eosinophils % 2.1 % [facility] Eosinophils Abs 0.2 0.0 - 0.4 [facility] x10(3)/[facility] LABORATORY Basophils % 0.4 % [facility] Basophils Abs 0.0 0.0 - 0.1 [facility] x10(3)/[facility] LABORATORY Immature Gran % 0.80 % [facility] Comment: Immature granulocytes(IG's)percentage an d absolute count will include metamyelocytes, myelocytes, and promyelo cytes. Blood smears from CBCs yielding IG's will be scanned manually for concor dance. If this scan disagrees with the automated IG or if promyelocytes are not ed, a manual differential will be performed. Melisa Gran Abs 0.09 (H) 0.00 - 0.04 x10(3)/[facility] LABORATORY Specimen Anatomical Collection Method Collection Time Receive d Time (Source) Location / / Volume Laterality Blood specimen 08/10/2017 10:28 8 (specimen) AM EST 10:35 AM EST Resulting Agency Comment Spec In Lab Yonathan Smith MD HEMATOLOGY ORDERABLES Performing Organization Address City/State/[place] [address] (ABNORMAL) Hemogram (08/10/2017 10:28 AM EST) Analysis Performed At Patho logist Time Signature WBC 11.0 (H) 4.0 - 9.5 [facility] x10(3)/[facility] LABORATORY RBC 3.02 (L) 4.58 - [facility] 5.54 [facility] x10(6)/[facility] LABORATORY Hemoglobin 8.8 (L) 13.7 - [facility] 16.5 gm/dL [facility] LABORATORY Hematocrit 28.1 (L) 40.5 - [facility] 48.5 % [facility] LABORATORY MCV 93.0 82.9 - [facility] 93.1 fL [facility] LABORATORY MCH 29.1 27.5 - [facility] 32.1 pg [facility] LABORATORY MCHC 31.3 (L) 32.0 - [facility] 35.7 gm/dL [facility] LABORATORY Platelets 207 145 - 357 [facility] x10(3)/[facility] LABORATORY RDWSD 55.3 (H) 36.0 - [place] DAVIS 45.0 [facility] LABORATORY RDWCV 16.4 (H) 11.4 - [place] DAVIS 13.8 % [facility] LABORATORY MPV 9.0 7.6 - 12.9 [place] DAVIS [facility] LABORATORY nRBC % Auto 0.0 % [facility] nRBC Abs Auto 0.000 0.000 - [place] DAVIS 0.000 [facility] x10(3)/[facility] LABORATORY Specimen Anatomical Collection Method Collection Time Receive d Time (Source) Location / / Volume Laterality Blood specimen 08/10/2017 10:28 8 (specimen) AM EST 10:35 AM EST Resulting Agency Comment Spec In Lab Yonathan Smith MD HEMATOLOGY ORDERABLES Performing Organization Address City/State/[place] [address] VS Angiogram/intervention (vascular) (08/10/2017 [...] 2.5x80 5. Completion RLE angiogram 6. L PHP MYS[employer] WEB DEVELOPER angiogram 7. Mynx closure Surgeons: Hank Washington Anesthesia: Conscious sedation, local 8 cc 1% lidocaine Medications: Fentanyl: 200 mcg ?? Versed: 4 mg Heparin: 9000 units ?? Antibiotics: Scheduled ceftriaxone Protamine: 40 mg Fluoro Time: 33.3 min Contrast: 80 cc EBL: 10cc Indications for the Procedure: 72 y.o. 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 - L [employer] WE[employer] DEVELOPER angriogram demonstrated: High fe moral bifurcation over the proximal half of the femoral head. L [employer] WE[employer] DEVELOPER access in the distal L PHP MYSQL WEB DEVELOPER. - Closure device: Mynx Technical Procedure: [...] for a 45cm 5F Destination. V18 and [place] a nd QuickCross catheters were used to [...] bifurcation. Access appeared in the distal R PHP MYSQL WEB DEVELOPER. Closure and sheath removal was performed [...] hours Hold heparin drip Bedrest Continue antibiotics Electronically signed by: Trinidad [facility], at 08/16/2017 11:08 AM Procedure Note Trinidad Washington MD - 08/16/2017Form [...] 2.5x80 5. Completion RLE angiogram 6. L PHP MYS[employer] WEB DEVELOPER angiogram 7. Mynx closure Surgeons: Hank [...] to e syndrome (possibly from a right PHP M[employer] WEB DEVELOPER PSA which has since thrombosed), now [...] RLE angiogram demonstrated: Widely pat ent R PHP MYS[employer] WEB DEVELOPER with small amount of flow seen [...] on the foot via collaterals. - L PHP M[employer] WE[employer] DEVELOPER angriogram demonstrated: High fe moral bifurcation over the proximal half of the femoral head. L PHP M[employer] WEB DEVELOPER access in the distal L PHP MYSQL WEB DEVELOPER. - Closure device: Mynx Technical Procedure: [...] for a 45cm 5F Destination. V18 and Bell [place]le a nd QuickCross catheters were used to [...] bifurcation. Access appeared in the distal R PHP MYSQL WEB DEVELOPER. Closure and sheath removal was performed [...] (ABNORMAL) Differential, Automated (08/10/2017 5:50 AM EST) [facility] Method Time Signature Neutrophils % 80.1 % [facility] Neutr Abs (ANC) 9.01 (H) 1.70 - [facility] 6.10 [facility] x10(3)/[facility] LABORATORY Lymphocytes % 8.8 % [facility] Lymphocytes Abs 1.0 0.9 - 3.2 [facility] x10(3)/[facility] LABORATORY Monocytes % 8.3 % [facility] Monocyte Abs 0.9 0.3 - 0.9 [facility] x10(3)/[facility] LABORATORY Eosinophils % 2.0 % [facility] Eosinophils Abs 0.2 0.0 - 0.4 [facility] x10(3)/[facility] LABORATORY Basophils % 0.4 % [facility] Basophils Abs 0.0 0.0 - 0.1 [facility] x10(3)/[facility] LABORATORY Immature Gran % 0.40 % [facility]BS [...] 0.05 (H) 0.00 - 0.04 x10(3)/[facility] LABORATORY Specimen Anatomical Collection Method Collection Time Receive d Time (Source) Location / / Volume Laterality Blood specimen 08/10/2017 5:50 AM 018 5:59 (specimen) EST AM EST Resulting Agency Comment Spec In Lab Yonathan Smith MD HEMATOLOGY ORDERABLES Performing Organization Address City/State/[place] [address] (ABNORMAL) Hemogram (08/10/2017 5:50 AM EST) Analysis Performed At Patho logist Time Signature WBC 11.3 (H) 4.0 - 9.5 [facility] x10(3)/[facility] LABORATORY RBC 3.15 (L) 4.58 - [facility] 5.54 [facility] x10(6)/[facility] LABORATORY Hemoglobin 8.9 (L) 13.7 - [facility] 16.5 gm/dL [facility] LABORATORY Hematocrit 29.0 (L) 40.5 [facility] 48.5 % [facility] LABORATORY MCV 92.1 82.9 - [facility] 93.1 [facility] LABORATORY MCH 28.3 27.5 - [facility] RYAN 32.1 pg [facility] LABORATORY MCHC 30.7 (L) 32.0 - [facility] 35.7 gm/dL [facility] LABORATORY Platelets 231 145 - 357 [facility] x10(3)/[facility] LABORATORY RDWSD 53.9 (H) 36.0 - [facility] RYAN 45.0 [facility] LABORATORY RDWCV 16.2 (H) 11.4 - [facility] RYAN 13.8 % [facility] LABORATORY MPV 8.7 7.6 - 12.9 [facility] LABORATORY nRBC % Auto 0.0 % [facility] nRBC Abs Auto 0.000 0.000 - [place] R[place] 0.000 [facility] x10(3)/[facility] LABORATORY Specimen Anatomical Collection Method Collection Time Receive d Time (Source) Location / / Volume Laterality Blood specimen 08/10/2017 5:50 AM 018 5:59 (specimen) EST AM EST Resulting Agency Comment Spec In Lab Yonathan Smith MD HEMATOLOGY ORDERABLES Performing Organization Address City/State/[place] [address] (ABNORMAL) Basic Metabolic Panel (non-fasting) (08/10/2017 5:50 AM EST) P athologist Signature Glucose Lvl 135 65 - 199 [facility] mg/dL [facility] LABORATORY Comment: Diabetes: >=200 mg/dL plus symp toms BUN 17 10 - 20 mg/dL [facility] LABORATORY Creatinine 1.05 0.80 - 1.50 [...] or in patients with acute kidney failure. [email or web address] Specimen Anatomical Collection Method Collection Time Receive d Time (Source) Location / / Volume Laterality Blood specimen 08/10/2017 5:50 AM 018 5:59 (specimen) EST AM EST Resulting Agency Comment Spec In Lab Yonathan Smith MD CHEMISTRY ORDERABLES Performing Organization Address City/State/[place] [address] (ABNORMAL) Prothrombin Time (08/10/2017 5:50 AM EST) athologist Signature PT 16.8 (H) 11.8 - 14.0 [facility] LABORATORY INR 1.4 (H) 0.9 - 1.1 [facility] [...] Smith MD HEMATOLOGY ORDERABLES Performing Organization Address City/[facility]/[place] [address] (ABNORMAL) POCT Glucose (08/10/2017 4:01 AM EST) athologist Signature POC Glucose 206 (H) 65 - [address] [facility] mg/dL [facility] LABORATORY Comment: Supplemental ranges: <140 mg/dL before meals <180 mg/dL all other times of the day Specimen Anatomical Collection Method Collection Time Receive d Time (Source) Location / / Volume Laterality Blood specimen 08/10/2017 4:01 AM 018 4:01 (specimen) EST AM EST Yonathan Smith MD POINT OF CARE TEST ORDERABLE S Performing Organization Address City/State/[place] [address] POCT Glucose (08/10/2017 2:01 AM EST) athologist Signature POC Glucose 188 65 - 199 [facility] RYAN mg/dL [facility] LABORATORY Comment: Supplemental ranges: <140 mg/dL before meals <180 mg/dL all other times of the day Specimen Anatomical Collection Method Collection Time Receive d Time (Source) Location / / Volume Laterality Blood specimen 08/10/2017 2:01 AM 018 2:01 (specimen) EST AM EST Yonathan Smith MD POINT OF CARE TEST ORDERABLE S Performing Organization Address City/State/[place] [address] (ABNORMAL) POCT Glucose (08/09/2017 11:42 PM EST) P athologist Signature POC Glucose 283 (H) 65 - [address] [facility] mg/dL [facility] LABORATORY Comment: Supplemental ranges: <140 mg/dL before meals <180 mg/dL all other times of the day Specimen Anatomical Collection Method Collection Time Receive d Time (Source) Location / / Volume Laterality Blood specimen 08/09/2017 11:42 8 (specimen) PM EST 11:42 PM EST Yonathan Smith MD POINT OF CARE TEST ORDERABLE S Performing Organization Address City/[facility]/[place] [address] POCT Glucose (08/09/2017 8:55 PM EST) P athologist Signature POC Glucose 182 65 - [address] [facility] mg/dL [facility] LABORATORY Comment: Supplemental ranges: <140 mg/dL before meals <180 mg/dL all other times of the day Specimen Anatomical Collection Method Collection Time Receive d Time (Source) Location / / Volume Laterality Blood specimen 08/09/2017 8:55 PM 018 8:55 (specimen) EST PM EST Yonathan Smith MD POINT OF CARE TEST ORDERABLE S Performing Organization Address City/State/[place] [address] (ABNORMAL) APTT (08/09/2017 6:42 PM EST) P athologist Signature PTT 90 (H) 25 - 35 sec [facility] Comment: The recommended therapeutic range for fu ll dose, unfractionated heparin at [facility] is 80 ? 114 seconds. The use [...] Smith MD HEMATOLOGY ORDERABLES Performing Organization Address City/[facility]/ZIP Code Phon e Number [address] POCT Glucose (08/09/2017 4:41 PM EST) athologist Signature POC Glucose 195 65 - 199 [facility] mg/dL [facility] LABORATORY Comment: Supplemental ranges: <140 mg/dL before meals <180 mg/dL all other times of the day Specimen Anatomical Collection Method Collection Time Receive d Time (Source) Location / / Volume Laterality Blood specimen 08/09/2017 4:41 PM 018 4:41 (specimen) EST PM EST Yonathan Smith MD POINT OF CARE TEST ORDERABLE S Performing Organization Address City/[facility]/ZIP Code Phon e Number [address] POCT Glucose (08/09/2017 12:29 PM EST) athologist Signature POC Glucose 140 65 - 199 [facility] mg/dL [facility] LABORATORY Comment: Supplemental ranges: <140 mg/dL before meals <180 mg/dL all other times of the day Specimen Anatomical Collection Method Collection Time Receive d Time (Source) Location / / Volume Laterality Blood specimen 08/09/2017 12:29 8 (specimen) PM EST 12:29 PM EST Yonathan Smith MD POINT OF CARE TEST ORDERABLE S Performing Organization Address City/[facility]/ZIP [facility] Phon e Number [address] POCT Glucose (08/09/2017 9:59 AM EST) athologist Signature POC Glucose 135 65 - 199 [facility] mg/dL [facility] LABORATORY Comment: Supplemental ranges: <140 mg/dL before meals <180 mg/dL all other times of the day Specimen Anatomical Collection Method Collection Time Receive d Time (Source) Location / / Volume Laterality Blood specimen 08/09/2017 9:59 AM 018 9:59 (specimen) EST AM EST Yonathan Smith MD POINT OF CARE TEST ORDERABLE S Performing Organization Address City/[facility]/[place] [address] Specimen to Pathology (08/09/2017 8:41 AM EST) Specimen Anatomical Collection Method Collection Time Receive d Time (Source) Location / / Volume Laterality AP Specimen 08/09/2017 8:41 AM 8 8:41 EST AM EST Narrative [facility] ORY - 08/09/2017 8:41 AM EST Specimen requisition ordered. ??Separate Pathology report to follow Yonathan Smith MD PATHOLOGY/CYTOLOGY ORDERABLE S Performing Organization Address City/[facility]/[place] [address] Surgical Pathology Report (08/09/2017 8:40 AM EST) Component Value Ref Test Analysis Performed At [facility] gist Range Method Time Signature Surgical [id number] ? Location: [facility]; [facility]; A [facility] Report The signing pathologist has (i) examined the relevant preparation(s) for the [facility] specimen(s) and (ii) rendered or confirmed the diagnosis(es) . HOSPITAL LABORATORY . 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 ?Viable proximal resection margins. Electronically signed by: ??Manjit STRANGE, Henrique Flower Verified: ??08/13/2017 ?Pathologist Performed at: ??-[facility] Dept. of Pathology, [place], [place] CLINICAL INFORMATION Specimen Submitted: A - [...] Address City/State/Z[place] [address] Anaerobic Culture (08/09/2017 8:30 AM EST) [facility] gist Method Time Signature Anaerobic No anaerobic [facility] Culture organisms [facility] LABORATORY Specimen Anatomical Collection Method Collection Time [...] Organization Address City/State/[place] [address] (ABNORMAL) Abscess/Wound Aspirate Culture (08/09/2017 8:30 AM EST) Patholo gist Method Time Signature Abscess/Wound Moderate mixed [facility] Aspirate bacterial [place] Culture morphotypes [facility] normal LABORATORY cutaneous leroy (A) Gram Stain Rare White Blood Cells [place] Few Gram Positive Cocci in pairs [place] () [facility] LABORATORY Organism Gram Positive [place] Cocci in pairs [place] () [facility] LABORATORY [...] - GENERAL ORDER ROBSON Performing Organization Address City/[facility]/[place] [address] POCT Glucose (08/09/2017 4:28 AM EST) P athologist Signature POC Glucose 128 65 - 199 [facility] mg/dL [facility] LABORATORY Comment: Supplemental ranges: <140 mg/dL before meals <180 mg/dL all other times of the day Specimen Anatomical Collection Method Collection Time Receive d Time (Source) Location / / Volume Laterality Blood specimen 08/09/2017 4:28 AM 018 4:28 (specimen) EST AM EST Yonathan Smith MD POINT OF CARE TEST ORDERABLE S Performing Organization Address City/State/ZIP Code Phon e Number [address] ABORH Recheck Status [...] BANK ORDERABLES Performing Organization Address City/[facility]/[place] [address] Antibody screen (08/09/2017 1:10 AM EST) Patholo gist Method Time Signature Ab Screen Negative [facility] LABORATORY Expires at 08/12/2017 BARBARA ZHAORYAN [id number] on: [facility] LABORATORY Specimen Anatomical Collection Method Collection Time Receive d Time (Source) Location / / Volume Laterality Blood specimen 08/09/2017 1:10 AM 018 1:35 (specimen) EST AM EST Resulting Agency Comment Spec In Lab Yonathan Smith MD BLOOD BANK ORDERABLES Performing Organization Address City/[facility]/[place] [address] ABO/Rh Typing (08/09/2017 1:10 AM EST) P athologist Signature ABORh Type O Pos [facility] LABOR[facility]ORY Specimen Anatomical Collection Method Collection Time Receive d Time (Source) Location / / Volume Laterality Blood specimen 08/09/2017 1:10 AM 018 1:35 (specimen) EST AM EST Resulting Agency Comment Spec In Lab Yonathan Smith MD BLOOD BANK ORDERABLES Performing Organization Address City/[facility]/[place] [address] (ABNORMAL) APTT (08/09/2017 1:10 AM EST) P athologist Signature PTT 86 (H) 25 - 35 sec [facility] Comment: The recommended therapeutic range for fu ll dose, unfractionated heparin at [facility] is 80 ? 114 seconds. The use [...] Address City/State/Z[place] [address] (ABNORMAL) Differential, Automated (08/09/2017 1:10 AM EST) [facility] Method Time Signature Neutrophils % 76.2 % [facility] Neutr Abs (ANC) 8.59 (H) 1.70 - [facility] 6.10 [facility] x10(3)/[facility] LABORATORY Lymphocytes % 11.0 % [facility] LABORATORY Lymphocytes Abs 1.2 0.9 - 3.2 [facility] x10(3)/[facility] LABORATORY Monocytes % 8.4 % [facility] LABORATORY Monocyte Abs 1.0 (H) 0.3 - 0.9 [facility] x10(3)/[facility] LABORATORY Eosinophils % 3.5 % [facility] LABORATORY Eosinophils Abs 0.4 0.0 - 0.4 [facility] x10(3)/[facility] LABORATORY Basophils % 0.5 % [facility] LABORATORY Basophils Abs 0.1 0.0 - 0.1 [facility] x10(3)/[facility] LABORATORY Immature Gran % 0.40 % [facility] [...] 0.05 (H) 0.00 - 0.04 x10(3)/[facility] LABORATORY Specimen Anatomical Collection Method Collection Time Receive d Time (Source) Location / / Volume Laterality Blood specimen 08/09/2017 1:10 AM 018 1:19 (specimen) EST AM EST Resulting Agency Comment Spec In Lab Yonathan Smith MD HEMATOLOGY ORDERABLES Performing Organization Address City/State/[place] [address] (ABNORMAL) Hemogram (08/09/2017 1:10 AM EST) Analysis Performed At Patho logist Time Signature WBC 11.3 (H) 4.0 - 9.5 [facility] x10(3)/[facility] LABORATORY RBC 3.47 (L) 4.58 - [place] [facility] 5.54 [facility] x10(6)/[facility] LABORATORY Hemoglobin 10.0 (L) 13.7 [facility] gm/dL [facility] LABORATORY Hematocrit 31.9 (L) 40.5 - [facility] 48.5 % [facility] LABORATORY MCV 91.9 82.9 - [facility] 93.1 [facility] LABORATORY MCH 28.8 27.5 - [facility] 32.1 pg [facility] LABORATORY MCHC 31.3 (L) 32.0 - [facility] 35.7 gm/dL [facility] LABORATORY Platelets 234 145 - 357 [facility] x10(3)/[facility] LABORATORY RDWSD 54.0 (H) 36.0 - [facility] 45.0 [facility] LABORATORY RDWCV 16.2 (H) 11.4 [facility] 13.8 % [facility] LABORATORY MPV 8.7 7.6 - 12.9 [facility] LABORATORY nRBC % Auto 0.0 % [facility] LABORATORY nRBC Abs Auto 0.000 0.000 - [facility] 0.000 [facility] x10(3)/[facility] LABORATORY Specimen Anatomical Collection Method Collection Time Receive d Time (Source) Location / / Volume Laterality Blood specimen 08/09/2017 1:10 AM 018 1:19 (specimen) EST AM EST Resulting Agency Comment Spec In Lab Yonathan Smith MD HEMATOLOGY ORDERABLES Performing Organization Address City/State/[place] [address] (ABNORMAL) Prothrombin Time (08/09/2017 [...] Organization Address City/State/[place] [address] (ABNORMAL) Basic Metabolic Panel (non-fasting) (08/09/2017 1:10 AM EST) athologist Signature Glucose Lvl 108 65 - 199 [facility] mg/dL [facility] LABORATORY Comment: Diabetes: >=200 mg/dL plus symp toms BUN 34 (H) 10 - 20 mg/dL [facility] LABORATORY Creatinine 1.54 (H) 0.80 - 1.50 mg/dL [facility] [...] Chloride 96 (L) 98 - 107 mmol/L [facility] LABORATORY CO2 29 22 - 31 mmol/L [facility] LABORATORY Anion Gap 13 5 - 15 mmol/L [facility] LABORATORY Calcium 8.3 (L) 8.5 - 10.5 mg/dL [facility] LABORATORY Estimated GFR 45 (L) >=60 [facility] LABORATORY Comment: The reported eGFR should be multiplied b y 1.2 for patients. The MDRD is not an appropriate measure o f renal function for patients with body mass extremes or in patients with acute kidney failure. http://[employer]/DHnkdep [email or web address]/DHMCnkf Specimen Anatomical Collection Method Collection Time Receive d Time (Source) Location / / Volume Laterality Blood specimen 08/09/2017 1:10 AM 018 1:19 (specimen) EST AM EST Resulting Agency Comment Spec In Lab Yonathan Smith MD CHEMISTRY ORDERABLES Performing Organization Address City/[facility]/ZIP [facility] Phon e Number [address] POCT Glucose (08/09/2017 12:05 AM EST) P athologist Signature POC Glucose 128 65 - 199 [facility] mg/dL [facility] LABORATORY Comment: Supplemental ranges: <140 mg/dL before meals <180 mg/dL all other times of the day Specimen Anatomical Collection Method Collection Time Receive d Time (Source) Location / / Volume Laterality Blood specimen 08/09/2017 12:05 8 (specimen) AM EST 12:05 AM EST Yonathan Smith MD POINT OF CARE TEST ORDERABLE S Performing Organization Address City/[facility]/[place] [address] (ABNORMAL) POCT Glucose (08/08/2017 7:36 PM EST) P athologist Signature POC Glucose 215 (H) 65 - [address] [facility] mg/dL [facility] LABORATORY Comment: Supplemental ranges: <140 mg/dL before meals <180 mg/dL all other times of the day Specimen Anatomical Collection Method Collection Time Receive d Time (Source) Location / / Volume Laterality Blood specimen 08/08/2017 7:36 PM 018 7:36 (specimen) EST PM EST Yonathan Smith MD POINT OF CARE TEST ORDERABLE S Performing Organization Address City/State/[place] [address] (ABNORMAL) POCT Glucose (08/08/2017 6:23 PM EST) athologist Signature POC Glucose 216 (H) 65 - 199 [facility] mg/dL [facility] LABORATORY Comment: Supplemental ranges: <140 mg/dL before meals <180 mg/dL all other times of the day Specimen Anatomical Collection Method Collection Time Receive d Time (Source) Location / / Volume Laterality Blood specimen 08/08/2017 6:23 PM 018 6:23 (specimen) EST PM EST Yonathan Smith MD POINT OF CARE TEST ORDERABLE S Performing Organization Address City/[facility]/[place] [address] (ABNORMAL) APTT (08/08/2017 6:00 PM EST) athologist Signature PTT 97 (H) 25 - 35 sec [facility] LABORATORY Comment: The recommended therapeutic range for fu ll dose, unfractionated heparin at [facility] is 80 ? 114 seconds. The use [...] Organization Address City/State/[place] [address] POCT Glucose (08/08/2017 4:42 PM EST) athologist Signature POC Glucose 78 65 - 199 [facility] mg/dL [facility] LABORATORY Comment: Supplemental ranges: <140 mg/dL before meals <180 mg/dL all other times of the day Specimen Anatomical Collection Method Collection Time Receive d Time (Source) Location / / Volume Laterality Blood specimen 08/08/2017 4:42 PM 018 4:42 (specimen) EST PM EST Yonathan Smith MD POINT OF CARE TEST ORDERABLE S Performing Organization Address City/State/[place] [address] (ABNORMAL) POCT Glucose (08/08/2017 4:01 PM EST) P athologist Signature POC Glucose 58 (L) 65 - [address] [facility] mg/dL [facility] LABORATORY Comment: Supplemental ranges: <140 mg/dL before meals <180 mg/dL all other times of the day Specimen Anatomical Collection Method Collection Time Receive d Time (Source) Location / / Volume Laterality Blood specimen 08/08/2017 4:01 PM 018 4:01 (specimen) EST PM EST Yonathan Smith MD POINT OF CARE TEST ORDERABLE S Performing Organization Address City/[facility]/[place] [address] POCT Glucose (08/08/2017 11:51 AM EST) athologist Signature POC Glucose 90 65 - [address] [facility] mg/dL [facility] LABORATORY Comment: Supplemental ranges: <140 mg/dL before meals <180 mg/dL all other times of the day Specimen Anatomical Collection Method Collection Time Receive d Time (Source) Location / / Volume Laterality Blood specimen 08/08/2017 11:51 8 (specimen) AM EST 11:51 AM EST Yonathan Smith MD POINT OF CARE TEST ORDERABLE S Performing Organization Address City/[facility]/[place] [address] (ABNORMAL) APTT (08/08/2017 10:27 AM EST) P athologist Signature PTT 64 (H) 25 - 35 sec [facility] LABORATORY Comment: The recommended therapeutic range for fu ll dose, unfractionated heparin at [facility] is 80 ? 114 seconds. The use [...] Smith MD HEMATOLOGY ORDERABLES Performing Organization Address City/[facility]/[place] [address] POCT Glucose (08/08/2017 8:02 AM EST) athologist Signature POC Glucose 178 65 - 199 [facility] mg/dL [facility] LABORATORY Comment: Supplemental ranges: <140 mg/dL before meals <180 mg/dL all other times of the day Specimen Anatomical Collection Method Collection Time Receive d Time (Source) Location / / Volume Laterality Blood specimen 08/08/2017 8:02 AM 018 8:02 (specimen) EST AM EST Yonathan Smith MD POINT OF CARE TEST ORDERABLE S Performing Organization Address City/[facility] [place] [address] (ABNORMAL) APTT (08/08/2017 4:51 AM EST) athologist Signature PTT >160 25 - 35 [facility] (Critical) sec [facility] LABORATORY Comment: Called by: HOWARD, Read back by: Melba Jaramillo, Date/Time:08/08/17 05:43. The recommended therapeutic range for fu ll dose, unfractionated heparin at [facility] is 80 ? 114 seconds. The use [...] Smith MD HEMATOLOGY ORDERABLES Performing Organization Address City/[facility]/ZIP [facility] [place] [address] (ABNORMAL) Differential, Automated (08/08/2017 4:51 AM EST) Patholo gist Method Time Signature Neutrophils % 77.9 % [facility] LABORATORY Neutr Abs (ANC) 8.17 (H) 1.70 - [facility] 6.10 [facility] x10(3)/[facility] LABORATORY Lymphocytes % 10.3 % [facility] LABORATORY Lymphocytes Abs 1.1 0.9 - 3.2 [facility] x10(3)/[facility] LABORATORY Monocytes % 7.0 % [facility] LABORATORY Monocyte Abs 0.7 0.3 - 0.9 [facility] x10(3)/[facility] LABORATORY Eosinophils % 3.6 % [facility] LABORATORY Eosinophils Abs 0.4 0.0 - 0.4 [facility] x10(3)/[facility] LABORATORY Basophils % 0.5 % [facility] LABORATORY Basophils Abs 0.0 0.0 - 0.1 [facility] x10(3)/[facility] LABORATORY Immature Gran % 0.70 % [...] 0.07 (H) 0.00 - 0.04 x10(3)/[facility] LABORATORY Specimen Anatomical Collection Method Collection Time Receive d Time (Source) Location / / Volume Laterality Blood specimen 08/08/2017 4:51 AM 018 5:14 (specimen) EST AM EST Resulting Agency Comment Spec In Lab Yonathan Smith MD HEMATOLOGY ORDERABLES Performing Organization Address City/State/[place] [address] (ABNORMAL) Hemogram (08/08/2017 4:51 AM EST) Analysis Performed At Patho logist Time Signature WBC 10.5 (H) 4.0 - 9.5 [facility] x10(3)/[facility] LABORATORY RBC 3.27 (L) 4.58 - [facility]AN 5.54 [facility] x10(6)/[facility] LABORATORY Hemoglobin 9.3 (L) 13.7 - [facility] 16.5 gm/dL [facility] LABORATORY Hematocrit 30.3 (L) 40.5 - [facility] 48.5 % [facility] LABORATORY MCV 92.7 82.9 - [facility] 93.1 [facility] LABORATORY MCH 28.4 27.5 - [facility] 32.1 pg [facility] LABORATORY MCHC 30.7 (L) 32.0 - [facility] 35.7 gm/dL [facility] LABORATORY Platelets 252 145 - 357 [facility] x10(3)/[facility] LABORATORY RDWSD 54.6 (H) 36.0 - [facility] 45.0 [facility] LABORATORY RDWCV 16.2 (H) 11.4 - [facility] 13.8 % [facility] LABORATORY MPV 9.1 7.6 - 12.9 [facility] LABORATORY nRBC % Auto 0.0 % [facility] LABORATORY nRBC Abs Auto 0.000 0.000 - [facility] 0.000 [facility] x10(3)/[facility] LABORATORY Specimen Anatomical Collection Method Collection Time Receive d Time (Source) Location / / Volume Laterality Blood specimen 08/08/2017 4:51 AM 018 5:14 (specimen) EST AM EST Resulting Agency Comment Spec In Lab Yonathan Smith MD HEMATOLOGY ORDERABLES Performing Organization Address City/State/[place] [address] (ABNORMAL) Prothrombin Time (08/08/2017 [...] Address City/State/[place] [address] (ABNORMAL) Basic Metabolic Panel (non-fasting) (08/08/2017 4:51 AM EST) P athologist Signature Glucose Lvl 229 (H) 65 - 199 [facility] mg/dL [facility] LABORATORY Comment: Diabetes: >=200 mg/dL plus symp toms BUN 35 (H) 10 - 20 mg/dL [facility] LABORATORY Creatinine 1.57 (H) 0.80 - 1.50 mg/dL [facility] LABORATORY Sodium 136 135 - [...] Chloride 94 (L) 98 - 107 mmol/L [facility] LABORATORY CO2 25 22 - 31 mmol/L [facility] LABORATORY Anion Gap 17 (H) 5 - 15 mmol/L [facility] LABORATORY Calcium 7.9 (L) 8.5 - 10.5 mg/dL [facility] LABORATORY Estimated GFR 44 (L) >=60 [facility] LABORATORY Comment: The reported eGFR should be multiplied b y 1.2 for patients. The MDRD is not an appropriate measure o f renal function for patients with body mass extremes or in patients with acute kidney failure. http://[employer]/DHnkdep http://[employer]/DHMCnkf Specimen Anatomical Collection Method Collection Time Receive d Time (Source) Location / / Volume Laterality Blood specimen 08/08/2017 4:51 AM 018 5:14 (specimen) EST AM EST Resulting Agency Comment Spec In Lab Yonathan Smith MD CHEMISTRY ORDERABLES Performing Organization Address City/State/ZIP Code Phon e Number [address] POCT Glucose (08/08/2017 4:20 AM EST) athologist Signature POC Glucose 193 65 - 199 [facility] mg/dL [facility] LABORATORY Comment: Supplemental ranges: <140 mg/dL before meals <180 mg/dL all other times of the day Specimen Anatomical Collection Method Collection Time Receive d Time (Source) Location / / Volume Laterality Blood specimen 08/08/2017 4:20 AM 018 4:20 (specimen) EST AM EST Yonathan Smith MD POINT OF CARE TEST ORDERABLE S Performing Organization Address City/[facility]/ZIP Code Phon e Number [address] POCT Glucose (08/07/2017 11:11 PM EST) athologist Signature POC Glucose 124 65 - [address] [facility] mg/dL [facility] LABORATORY Comment: Supplemental ranges: <140 mg/dL before meals <180 mg/dL all other times of the day Specimen Anatomical Collection Method Collection Time Receive d Time (Source) Location / / Volume Laterality Blood specimen 08/07/2017 11:11 8 (specimen) PM EST 11:11 PM EST Yonathan Smith MD POINT OF CARE TEST ORDERABLE S Performing Organization Address City/[facility]/ZIP Code Phon e Number [address] (ABNORMAL) APTT (08/07/2017 10:18 PM EST) P athologist Signature PTT 114 (H) 25 - 35 sec [facility] LABORATORY Comment: The recommended therapeutic range for fu ll dose, unfractionated heparin at [facility] is 80 ? 114 seconds. The use [...] Smith MD HEMATOLOGY ORDERABLES Performing Organization Address City/[facility] Phon e Number [address] POCT Glucose (08/07/2017 8:10 PM EST) athologist Signature POC Glucose 140 65 - 199 [facility] mg/dL [facility] LABORATORY Comment: Supplemental ranges: <140 mg/dL before meals <180 mg/dL all other times of the day Specimen Anatomical Collection Method Collection Time Receive d Time (Source) Location / / Volume Laterality Blood specimen 08/07/2017 8:10 PM 018 8:10 (specimen) EST PM EST Yonathan Smith MD POINT OF CARE TEST ORDERABLE S Performing Organization Address City/[facility]/ZIP Code Phon e Number [address] POCT Glucose (08/07/2017 5:27 PM EST) athologist Signature POC Glucose 187 65 - [address] mg/dL [facility] LABORATORY Comment: Supplemental ranges: <140 mg/dL before meals <180 mg/dL all other times of the day Specimen Anatomical Collection Method Collection Time Receive d Time (Source) Location / / Volume Laterality Blood specimen 08/07/2017 5:27 PM 018 5:27 (specimen) EST PM EST Yonathan Smith MD POINT OF CARE TEST ORDERABLE S Performing Organization Address City/[facility]/ZIP Code Phon e Number [address] POCT Glucose (08/07/2017 3:29 PM EST) athologist Signature POC Glucose 86 65 - 199 [facility] mg/dL [facility] LABORATORY Comment: Supplemental ranges: <140 mg/dL before meals <180 mg/dL all other times of the day Specimen Anatomical Collection Method Collection Time Receive d Time (Source) Location / / Volume Laterality Blood specimen 08/07/2017 3:29 PM 018 3:29 (specimen) EST PM EST Yonathan Smith MD POINT OF CARE TEST ORDERABLE S Performing Organization Address City/[facility]/[place] [address] (ABNORMAL) APTT (08/07/2017 2:50 PM EST) athologist Signature PTT 60 (H) 25 - 35 sec [facility] LABORATORY Comment: The recommended therapeutic range for fu ll dose, unfractionated heparin at [facility] is 80 ? 114 seconds. The use [...] Smith MD HEMATOLOGY ORDERABLES Performing Organization Address City/[facility]/[place] [address] (ABNORMAL) POCT Glucose (08/07/2017 2:23 PM EST) athologist Signature POC Glucose 55 (L) 65 - [address] [facility] mg/dL [facility] LABORATORY Comment: Supplemental ranges: <140 mg/dL before meals <180 mg/dL all other times of the day Specimen Anatomical Collection Method Collection Time Receive d Time (Source) Location / / Volume Laterality Blood specimen 08/07/2017 2:23 PM 018 2:23 (specimen) EST PM EST Yonathan Smith MD POINT OF CARE TEST ORDERABLE S Performing Organization Address City/State/ZIP [place] [address] [facility] [address] POCT Glucose (08/07/2017 12:08 PM EST) P athologist Signature POC Glucose 77 65 - 199 [facility] mg/dL [facility] LABORATORY Comment: Supplemental ranges: <140 mg/dL before meals <180 mg/dL all other times of the day Specimen Anatomical Collection Method Collection Time Receive d Time (Source) Location / / Volume Laterality Blood specimen 08/07/2017 12:08 8 (specimen) PM EST 12:08 PM EST Yonathan Smith MD POINT OF CARE TEST ORDERABLE S Performing Organization Address City/State/ZIP Code Phon e Number [address] (ABNORMAL) Differential, Automated (08/07/2017 7:30 AM EST) Patholo gist Method Time Signature Neutrophils % 73.8 % [facility] LABORATORY Neutr Abs (ANC) 7.17 (H) 1.70 - [facility] 6.10 [facility] x10(3)/[facility] LABORATORY Lymphocytes % 12.2 % [facility] LABORATORY Lymphocytes Abs 1.2 0.9 - 3.2 [facility] x10(3)/[facility] LABORATORY Monocytes % 9.0 % [facility] LABORATORY Monocyte Abs 0.9 0.3 - 0.9 [facility] x10(3)/[facility] LABORATORY Eosinophils % 3.9 % [facility] LABORATORY Eosinophils Abs 0.4 0.0 - 0.4 [facility] x10(3)/[facility] LABORATORY Basophils % 0.6 % [facility] LABORATORY Basophils Abs 0.1 0.0 - 0.1 [facility] x10(3)/[facility] LABORATORY Immature Gran % 0.50 % [facility] LABORATORY Comment: Immature granulocytes(IG's)percentage an d absolute count will include metamyelocytes, myelocytes, and promyelo cytes. Blood smears from CBCs yielding IG's will be scanned manually for concor dance. If this scan disagrees with the automated IG or if promyelocytes are not ed, a manual differential will be performed. Melisa Gran Abs 0.05 (H) 0.00 - 0.04 x10(3)/[facility] LABORATORY Specimen Anatomical Collection Method Collection Time Receive d Time (Source) Location / / Volume Laterality Blood specimen 08/07/2017 7:30 AM 018 7:45 (specimen) EST AM EST Resulting Agency Comment Spec In Lab Yonathan Smith MD HEMATOLOGY ORDERABLES Performing Organization Address City/State/[place] [address] (ABNORMAL) Hemogram (08/07/2017 7:30 AM EST) Analysis Performed At Patho logist Time Signature WBC 9.7 (H) 4.0 - 9.5 [facility] x10(3)/[facility] LABORATORY RBC 3.54 (L) 4.58 - [facility] 5.54 [facility] x10(6)/[facility] LABORATORY Hemoglobin 9.9 (L) 13.7 - [facility] 16.5 gm/dL [facility] LABORATORY Hematocrit 32.3 (L) 40.5 - [facility] 48.5 % [facility] LABORATORY MCV 91.2 82.9 - [facility] 93.1 [facility] LABORATORY MCH 28.0 27.5 - [facility] 32.1 pg [facility] LABORATORY MCHC 30.7 (L) 32.0 - [facility] 35.7 gm/dL [facility] LABORATORY Platelets 312 145 - 357 [facility] x10(3)/[facility] LABORATORY RDWSD 53.2 (H) 36.0 - [facility] RYAN 45.0 [facility] LABORATORY RDWCV 16.0 (H) 11.4 - [facility] 13.8 % [facility] LABORATORY MPV 8.9 7.6 - 12.9 [facility] LABORATORY nRBC % Auto 0.0 % [facility] LABORATORY nRBC Abs Auto 0.000 0.000 - [facility] 0.000 [facility] x10(3)/[facility] LABORATORY Specimen Anatomical Collection Method Collection Time Receive d Time (Source) Location / / Volume Laterality Blood specimen 08/07/2017 7:30 AM 018 7:45 (specimen) EST AM EST Resulting Agency Comment Spec In Lab Yonathan Smith MD HEMATOLOGY ORDERABLES Performing Organization Address City/State/Z[place] [address] (ABNORMAL) Basic Metabolic Panel (non-fasting) (08/07/2017 7:30 AM EST) athologist Signature Glucose Lvl 80 65 - 199 [facility] [facility] mg/dL [facility] Comment: Diabetes: >=200 mg/dL plus symp toms BUN 31 (H) 10 - 20 mg/dL [facility] Creatinine 1.22 0.80 - 1.50 mg/dL [facility] [...] estions. Chloride 99 98 - 107 mmol/L [facility] CO2 29 22 - 31 mmol/L [facility] Anion Gap 12 5 - 15 mmol/L [facility] Calcium 8.5 8.5 - 10.5 mg/dL [facility] Estimated GFR 59 (L) >=60 [facility] Comment: The reported eGFR should be multiplied b y 1.2 for patients. The MDRD is not an appropriate measure o f renal function for patients with body mass extremes or in patients with acute kidney failure. http://Sc[employer].TinyCo/DHnkdep http://[employer]/DHMCnkf Specimen Anatomical Collection Method Collection Time Receive d Time (Source) Location / / Volume Laterality Blood specimen 08/07/2017 7:30 AM 018 7:45 (specimen) EST AM EST Resulting Agency Comment Spec In Lab Yonathan Smith MD CHEMISTRY ORDERABLES Performing Organization Address City/[facility]/ZIP Code Phon e Number [address] POCT Glucose (08/07/2017 7:27 AM EST) athologist Signature POC Glucose 81 65 - 199 [facility] mg/dL [facility] Comment: Supplemental ranges: <140 mg/dL before meals <180 mg/dL all other times of the day Specimen Anatomical Collection Method Collection Time Receive d Time (Source) Location / / Volume Laterality Blood specimen 08/07/2017 7:27 AM 018 7:27 (specimen) EST AM EST Yonathan Smith MD POINT OF CARE TEST ORDERABLE S Performing Organization Address [facility] Phon e Number [address] APTT (08/07/2017 7:04 AM EST) athologist Signature PTT 34 25 - 35 sec [facility] Comment: The recommended therapeutic range for fu ll dose, unfractionated heparin at [facility] is 80 ? 114 seconds. The use [...] Smith MD HEMATOLOGY ORDERABLES Performing Organization Address City/[facility]/ZIP [facility] Phon e Number [address] (ABNORMAL) Prothrombin Time (08/07/2017 7:04 AM EST) athologist Signature PT 17.3 (H) 11.8 - 14.0 [facility] LABORATORY INR 1.4 (H) 0.9 - 1.1 [facility] [...] Address City/State/ZIP Code Phon e Number [address] POCT Glucose (08/07/2017 4:03 AM EST) athologist Signature POC Glucose 93 65 - 199 [facility] mg/dL [facility] Comment: Supplemental ranges: <140 mg/dL before meals <180 mg/dL all other times of the day Specimen Anatomical Collection Method Collection Time Receive d Time (Source) Location / / Volume Laterality Blood specimen 08/07/2017 4:03 AM 018 4:03 (specimen) EST AM EST Yonathan Smith MD POINT OF CARE TEST ORDERABLE S Performing Organization Address City/State/ZIP Code Phon e Number [address] POCT Glucose (08/07/2017 12:04 AM EST) athologist Signature POC Glucose 107 65 - [address] [facility] mg/dL [facility] Comment: Supplemental ranges: <140 mg/dL before meals <180 mg/dL all other times of the day Specimen Anatomical Collection Method Collection Time Receive d Time (Source) Location / / Volume Laterality Blood specimen 08/07/2017 12:04 8 (specimen) AM EST 12:04 AM EST Yonathan Smith MD POINT OF CARE TEST ORDERABLE S Performing Organization Address City/State/[place] [address] POCT Glucose (08/06/2017 7:56 PM EST) P athologist Signature POC Glucose 178 65 - 199 [facility] mg/dL [facility] Comment: Supplemental ranges: <140 mg/dL before meals <180 mg/dL all other times of the day Specimen Anatomical Collection Method Collection Time Receive d Time (Source) Location / / Volume Laterality Blood specimen 08/06/2017 7:56 PM 018 7:56 (specimen) EST PM EST Yonathan Smith MD POINT OF CARE TEST ORDERABLE S Performing Organization Address City/State/[place] [address] TcPO2 (08/06/2017 2:32 PM EST) Component Value Ref Test Analysis Performed At Patholo gist Range Method Time Signature VB Text Department: Vascular Surgery Lab VASCUBASE Report Patient: [id number] (GREGORY HOANG) CPT: 5607948 ICD10: I99.8 Referring Physician: YONATHAN SMITH ?? [...] Chiquis cho RN)1756 (Stopped - Provider: Henrique Makrs RN) 171 (New Bag - Provider: Chiquis [...] 25 mg 0825 (Giv en - Provider: Chiqusi Mcgrath RN)2011 (Given - Provider: Henrique aMrks RN) 09 (Given - Provider: Chiquis Mcgrath [...] Provider: Kim Borges RN)2144 (Given - Provider: Alyosn Middleton RN) 0427 (Given - Provider: Mira [...]
Routine documented in this encounter Care Teams T Rail Turner Relationship Specialty Start Date End Date Lovely Vicente MD PCP - General 04/16/[address] [place] [address] documented as of this encounter
--- OUTSIDE RECORDS SUMMARY | 2022-02-27 15:14 | XMS_ITS | Encounter Summary ---
:1945 Author Organization [facility] [place] [address] Care Team Providers Name Role Phone Lovely Vicente MD Primary Care Provider Reason for Visit Auth/Cert Specialty Diagnoses / Procedures Referred By Contact Refer red To Contact Diagnoses Critical lower limb ischemia CELLULITIS RT FOOT Procedures EMERGENCY Referral ID Status Reason Start Date Expiration Date Visits Requ ested Visits Authorized [id number] 1 1 Encounter Details Date Type Department Care Team Description 08/04/2017 Laboratory Appointment Lab [address]L [place] [address] Social History Tobacco Use Types Packs/Day [...] MD [facility] ER DR T[address]O [place], [place] [address] (Wo rk) 06/10/2022 Office Visit Dermatology Laura Scherer MD [facility] DR [address] [place], [place] [address] (Wo rk) documented as of this encounter Visit Diagnoses Not on filedocumented in this encounter Care Teams Annual Giving Director Relationship Specialty Start Date End Date Lovely Vicente MD PCP - General 04/16/[address] [place] [address] documented as of this encounter
--- OUTSIDE RECORDS SUMMARY | 2022-02-27 15:14 | XMS_ITS | Encounter Summary ---
:1945 Author Organization [facility] [place] [address] Care Team Providers Name Role Phone Lovely Vicente MD Primary Care Provider Reason for Visit Auth/Cert Specialty Diagnoses / Procedures Referred By Contact Refer red To Contact Diagnoses Critical lower limb ischemia CELLULITIS RT FOOT Procedures EMERGENCY Referral ID Status Reason Start Date Expiration Date Visits Requ ested Visits Authorized [id number] 1 1 Encounter Details Date Type Department Care Team Description 08/04/2017 [facility] [place] [phone] Social History Tobacco Use Types Packs/Day Years [...] Cardiology Vitaliy Nobles MD [facility] CARDIOLOGY [place], [place] [address] (Wo rk) 06/10/2022 Office Visit Dermatology Laura Scherer MD [facility] DR [address] [facility] [place], [place] [address] (Wo rk) documented as of [...] [facility] Range Method Time Signature VB Text Department: Vascular Surgery Lab VASCUBASE Report Patient: [id number] (DON HOANG) CPT: [id number] ICD10: I82.541 Referring Physician: TAMIKO HUTSON ?? [...] extremity documented in this encounter Care Teams Team Lead Relationship Specialty Start Date End Date Lovely Vicente MD PCP - General 04/16/[address] [place] [address] documented as of this encounter
--- OUTSIDE RECORDS SUMMARY | 2022-02-27 15:14 | XMS_ITS | Encounter Summary ---
:1945 [place] [address] Care Team Providers Name Role Phone Lovely Vicente MD Primary Care Provider Encounter Details Date Type Department Care Team Description 08/03/2017 Hospital Encounter Radiology Library at [place], Tommy Mijares [facility] [place] [address] VASCULAR SURGERY [phone] [place], [place] [address] (Wo rk) Social History Tobacco [...] Vitaliy Nobles MD [facility] CARDIOLOGY [place], [place] [address] ( rk) 06/10/2022 Office Visit Dermatology Laura Scherer MD [facility] [address] [facility] [place], [place] [address] (Wo rk) documented as of [...] City/State/ZIP Code Phon e Number [facility] [place], [place] documented in this encounter Visit Diagnoses Diagnosis Pain Generalized pain documented in this encounter Care Teams Pelt Shearer Relationship Specialty Start Date End Date Lovely Vicente MD PCP - General 04/16/[address] [place] [address] documented as of this encounter
--- OUTSIDE RECORDS SUMMARY | 2022-02-27 15:14 | XMS_ITS | Encounter Summary ---
:1945 [place] [address] Care Team Providers Name Role Phone Lovely Vicente MD Primary Care Provider Encounter Details Date Type Department Care Team Description 07/29/2017 Telephone Pain Aurelia Crawford MD [facility] [place] [address] PAIN CLINIC [phone] [place], [place] [address] (Wo rk) Social History Tobacco [...] Vitaliy Nobles MD [facility] CARDIOLOG[facility] [place], [place] [address] (Wo rk) 06/10/2022 Office Visit Dermatology Laura Scherer MD [facility] [address] GR[address] [place], [place] [address] (Wo rk) documented as of this encounter Visit Diagnoses Not on filedocumented in this encounter Care Teams Online Community Manager Relationship Specialty Start Date End Date Lovely Vicente MD PCP - General 04/16/15 [facility] [address] [place] [address] documented as of this encounter
--- OUTSIDE RECORDS SUMMARY | 2022-02-27 15:14 | XMS_ITS | Encounter Summary ---
:1945 Author Organization [facility] [place] [address] Care Team Providers Name Role Phone Lovely Vicente MD Primary Care Provider Reason for Visit Reason Comments Deep Vein Thrombosis Auth/Cert Specialty Diagnoses / Procedures Referred By Contact Refer red To Contact Diagnoses Critical lower limb ischemia CELLULITIS RT FOOT Procedures EMERGENCY Referral ID Status Reason Start Date Expiration Date Visits Requ ested Visits Authorized [id number] 1 1 Encounter Details Date Type Department Care Team Description 08/04/2017 Office Visit Vascular Surgery at [facility] itical lower limb [facility] ischemia [facility] [address] [place] VASCULAR SURGERY [id number] [place] [address] [phone] Social History Tobacco Use Types Packs/Day Years [...] discharged on Coumadin. ??He presented to [facility] on 07/20 with mottled toes on [...] Vitaliy Nobles MD [facility] [address] [place], [place] [address] (Wo rk) 06/10/2022 Office Visit Dermatology Laura Scherer MD [facility] DR [address] [place], [place] [address] (Wo rk) documented as of this encounter Visit Diagnoses Diagnosis Critical lower limb ischemia Unspecified circulatory system disorder documented in this encounter Care Teams [employer] Science Teacher Relationship Specialty Start Date End Date Lovely Vicente MD PCP - General 04/16/[address] [facility] [place] [address] documented as of this encounter
--- OUTSIDE RECORDS SUMMARY | 2022-02-27 15:14 | XMS_ITS | Encounter Summary ---
:1945 Author Organization [place] [address] Care Team Providers Name Role Phone Lovely Vicente MD Primary Care Provider Encounter Details Date Type Department Care Team Description 08/03/2017 Telephone Pain Management at [facility] [place], [place] [address] Social History Tobacco Use Types Packs/Day [...] Management Center Preauthorization Request Patient: Don Fatima [id number] Fax received from [facility] requesting we obtain prior authorization for Lidocaine Patches prescribed by Barbra Soares APRN. RX insurance plan: [facility] insurance telephone: [phone] Patient ?? Diagnosis: right foot pain secondary to PVD and ischemia ?? Previous medications attempted: Tylenol, Tramadol, Dilaudid Authorization/Reference number: [id number], PBP Code 801 _x_ denied, provider and patient informed _x_ appeal initiated by provider, patient informed Angeles Rodrigez, RN documented in this encounter Plan of Treatment Upcoming Encounters Date Type Specialty Care Team Description 03/26/2022 Office Visit Cardiology Vitaliy Nobles MD [facility] ER [address] T[address] [place], [place] [address] (Wo rk) 06/10/2022 Office Visit Dermatology Laura Scherer MD [facility] [address] [place], [place] [address] (Wo rk) documented as of this encounter Visit Diagnoses Not on filedocumented in this encounter Care Teams Retail Advertising Account Executive Relationship Specialty Start Date End Date Lovely Vicente MD PCP - General 04/16/15 [facility] [address] [place] [address] documented as of this encounter
--- OUTSIDE RECORDS SUMMARY | 2022-02-27 15:14 | XMS_ITS | Encounter Summary ---
:1945 Author Organization [facility] Address [address] [facility] [address] [place] [address] Care Team Providers Name Role Phone Lovely Vicente MD Primary Care Provider Encounter Details Date Type Department Care Team Description 07/29/2017 Transcribe Orders Laboratory Lovely Vicente, Coronary artery rupture; [facility] Ischemic cardiomyopathy; [facility] [address] Atherosclerosis of [place] co ronary artery, angina presence unspecified, unspecified whether [place] or transplanted heart; [place], [place] [address] Essential hypertension, malignant; [address] [place], [place] 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, unspecified retirement insulin use status [phone] [id number] Social History Tobacco Use Types Packs/Day Years [...] Vitaliy Nobles MD [facility] CARDIOLOGY [place], [place] [address] (Wo rk) 06/10/2022 Office Visit Dermatology Laura Scherer MD [facility] ER [address] [place], [place] [address] (Wo rk) Scheduled Orders Name Type Priority Associated Diagnoses Order S chedule Lab Use Only, Fax Lab Routine Coronary arter y rupture Expected: 07/29/2017 Request Ischemic cardiom yopathy (Approximate), Atherosclerosis of [place] Ex jose: 07/29/2018 coronary artery, angina presence unspecified, unspecified whether [place] or transplanted heart Essential hypertension, malignant documented as of this encounter Results Uric acid (08/04/2017 12:55 PM EST) P athologist Signature Uric Acid 7.1 3.5 - 8.5 [place] [facility] mg/dL [facility] Specimen Anatomical Collection Method Collection Time Receive d Time (Source) Location / / Volume Laterality Blood specimen 08/04/2017 12:55 8 1:01 (specimen) PM EST PM EST Resulting Agency Comment Spec In Lab Lovely Vicente MD CHEMISTRY ORDERABLES Performing Organization Address City/State/Z[place] [address] (ABNORMAL) Hemogram (08/04/2017 12:55 PM EST) Analysis Performed At Patho logist Time Signature WBC 15.8 (H) 4.0 - 9.5 [place] x10(3)/[facility] LABORATORY RBC 3.48 (L) 4.58 - [place] [address] [facility] x10(6)/[facility] LABORATORY Hemoglobin 9.9 (L) 13.7 - [place] 16.5 gm/dL [facility] Hematocrit 31.4 (L) 40.5 - [place] 48.5 % [facility] MCV 90.2 82.9 - [place] 93.1 fL [facility] MCH 28.4 27.5 - [place] 32.1 pg [facility] MCHC 31.5 (L) 32.0 - [place] 35.7 gm/dL [facility] Platelets 310 145 - 357 [place] x10(3)/[facility] LABORATORY RDWSD 51.8 (H) 36.0 - [facility] 45.0 [facility] LABORATORY RDWCV 15.8 (H) 11.4 - [facility] 13.8 % [facility] MPV 8.9 7.6 - 12.9 [facility] LABORATORY nRBC % Auto 0.0 % [facility] nRBC Abs Auto 0.000 0.000 - [facility] [address] [facility] x10(3)/[facility] LABORATORY Specimen Anatomical Collection Method Collection Time Receive d Time (Source) Location / / Volume Laterality Blood specimen 08/04/2017 12:55 8 1:01 (specimen) PM EST PM EST Resulting Agency Comment Spec In Lab Lovely Vicente MD HEMATOLOGY ORDERABLES Performing Organization Address City/State/Z[place] [address] (ABNORMAL) Comprehensive metabolic panel (non-fasting) (08/04/2017 12:55 PM EST) P athologist Signature Glucose Lvl 208 (H) 65 - 199 [facility] mg/dL [facility] Comment: Diabetes: >=200 mg/dL plus symp toms BUN 32 (H) 10 - 20 mg/dL [facility] Creatinine 1.58 (H) 0.80 - [...] LABORATORY AST 20 0 - 39 unit/L [facility] ALT 21 0 - 55 unit/L [facility] Alk Phos 93 40 - 120 unit/L [facility] Total Bilirubin 0.4 0.2 - 1.3 mg/dL [facility] Estimated GFR 43 (L) >=60 [facility] Comment: The reported eGFR should be multiplied b y 1.2 for patients. The MDRD is not an appropriate measure o f renal function for patients with body mass extremes or in patients with acute kidney failure. http://[employer]/DHnkdep http://[employer]/DHMCnkf Specimen Anatomical Collection Method Collection Time Receive d Time (Source) Location / / Volume Laterality Blood specimen 08/04/2017 12:55 8 1:01 (specimen) PM EST PM EST Resulting Agency Comment Spec In Lab Lovely Vicente MD CHEMISTRY ORDERABLES Performing Organization Address City/State/[place] [address] (ABNORMAL) Hemoglobin A1c (08/04/2017 12:55 PM EST) Analysis Performed At Patho logist Time Signature Hemoglobin A1C 6.2 (H) 4.3 - 5.6 [facility] Comment: Reference Range: 4.3 - [...] Mellitus, Diabetes Care 2013; 36: Suppl. 1, S67-30 Est Avg Gluc See note mg/dL [facility] Comment: Estimated Average Glucose not [...] Additional resources are available on [facility] ADA website. Macario HAMMOND, Ruthann J, Deysi R, et al. ??Tr anslating the A1C assay into estimated average glucose values. ??Diabetes Care 2008:31(8):9440-5901. Specimen Anatomical Collection Method Collection Time Receive d Time (Source) Location / / Volume Laterality Blood specimen 08/04/2017 12:55 8 1:01 (specimen) PM EST PM EST Resulting Agency Comment Spec In Lab Lovely Vicente MD CHEMISTRY ORDERABLES Performing Organization Address City/State/[place] [address] (ABNORMAL) Prothrombin Time (08/04/2017 [...] Organization Address City/State/[place] [address] documented in this encounter Visit Diagnoses Diagnosis Coronary artery rupture Acute myocardial infarction, unspecified site, episode of care unspecified Ischemic cardiomyopathy Other specified forms of chronic ischemi c heart disease Atherosclerosis of [place] coronary arter y, angina presence unspecified, unspecified whether [place] or transplanted heart Essential hypertension, malignant Diabetes mellitus due to underlying cond ition with diabetic nephropathy, unspecified buttermaker helper insulin use status documented in this encounter Care Teams Administrative Services Manager Relationship Specialty Start Date End Date Lovely Vicente MD PCP - General 04/16/[address] [place] [address] documented as of this encounter
--- OUTSIDE RECORDS SUMMARY | 2022-02-27 15:14 | XMS_ITS | Encounter Summary ---
:1945 Author Organization [place] [address] Care Team Providers Name Role Phone Lovely Vicente MD Primary Care Provider Encounter Details Date Type Department Care Team Description 07/29/2017 Transcribe Orders Laboratory Lovely Vicente MD [address] [address] [place], [place] [address] (Wo rk) Social History Tobacco Use Types [...] Nobles MD [facility] ER DR T[address] [place], [place] [address] (Wo rk) 06/10/2022 Office Visit Dermatology Laura Scherer MD [facility] ER DR [address] GR[address] [place]LOG[place], [place] [address] (Wo rk) documented as of this encounter Visit Diagnoses Not on filedocumented in this encounter Care Teams Employee Communications Specialist Relationship Specialty Start Date End Date Lovely Vicente MD PCP - General 04/16/[address] [facility] [place] [address] documented as of this encounter
--- OUTSIDE RECORDS SUMMARY | 2022-02-27 15:14 | XMS_ITS | Encounter Summary ---
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 Patient [...] SETUP performed by Manny Mcknight MD at [facility] OR ??? PRO CABG, ARTERIAL, SINGLE N/A 07/07/2017 @CABG, USING ARTERIAL GRAFT;SINGLE ARTERIAL GRAFT (WRVU 33.75) performed by Yuan Retana MD at [facility] OR ??? PRO CABG, ARTERY-VEIN, TWO N/A 07/07/2017 @CABG, TWO VENOUS GRAFTS & ARTERIAL GRAFT (WRVU 7.93) performed by Yuan Retana MD at [facility] OR ??? PRO COLONOSCOPY, REMFlash MOCK, SNARE 01/16/2014 COLONOSCOPY, POLYPECTOMY, REMOVAL LESION BY SNARE performed by Nohemi Jaimes MD at [facility] ENDOSCOPY ??? PRO ENDOSCOPY W/VIDEO-ASST VEIN HARVEST, CABG Right 07/07/2017 ENDOSCOPIC HARVEST VEIN(S) FOR CABG (WRVU 0.31) performed by Yuan Retana MD at [facility] OR ??? 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 Hank Zhang Vascular Surgery, PGY2 Pager #[phone] Associated attestation - Arik Clement MD - [...] [facility] [address] [place], [place] [address] (Wo rk) 06/10/2022 Office Visit Dermatology Laura Scherer MD [facility] TEJA GR[facility]DERMAT [place], [place] [address] (Wo rk) documented as of [...] Component Value Ref Test Analysis Performed At [facility] gist Range Method Time Signature VB Text Department: Vascular Surgery Lab VASCUBASE Report Patient: [id number] (GREGORY FATIMA) CPT: 29323 ICD10: I82.541 Referring Physician: TAMIKO JIMÉNEZ ?? [...] Signature POC Glucose 128 65 - 199 [facility] mg/dL [facility] LABORATORY Comment: Supplemental ranges: <140 mg/dL [...] [facility]/[place] [address] (ABNORMAL) D-Dimer, Quantitative (07/29/2017 2:15 PM EST) [employer] Method Time Signature D-Dimer, Quant 1,699 (H) 0 - 500 [facility] FEU ng/ml [facility] Comment: The D-Dimer assay is [...] Jiménez MD HEMATOLOGY ORDERABLES Performing Organization Address [facility]/[place] [address] (ABNORMAL) Differential, Automated (07/29/2017 2:15 PM EST) [employer] Method Time Signature Neutrophils % 82.5 % [facility]OR[facility] Neutr Abs (ANC) 10.21 (H) 1.70 - [facility] 6.[address] [facility] x10(3)/[facility] L LABORATORY Lymphocytes % 7.1 % [facility] Lymphocytes Abs 0.9 0.9 - 3.2 [facility] x10(3)/[facility] LABORATORY Monocytes % 6.5 % [facility] Monocyte Abs 0.8 0.3 - 0.9 [facility] x10(3)/[facility] LABORATORY Eosinophils % 2.7 % [facility] Eosinophils Abs 0.3 0.0 - 0.4 [facility] x10(3)/[facility] LABORATORY Basophils % 0.6 % [facility] Basophils Abs 0.1 0.0 - 0.1 [facility] x10(3)/[facility] LABORATORY Immature Gran % 0.60 % [...] City/State/ZIP Code Phon e Number [place] [id number] (ABNORMAL) Hemogram (07/29/2017 2:15 PM EST) Analysis Performed At Patho logist Time Signature WBC 12.4 (H) 4.0 - 9.5 [facility] x10(3)/[facility] LABORATORY RBC 4.17 (L) 4.58 - [facility] 5.[address] [facility] x10(6)/[facility] LABORATORY Hemoglobin 12.1 (L) 13.7 - [facility] 16.[facility] gm/dL [facility] LABORATORY Hematocrit 38.1 (L) 40.5 - [facility] 48.5 % [facility] MCV 91.4 82.9 - [facility] 93.1 [facility] LABORATORY MCH 29.0 27.5 - [facility] 32.1 pg [facility] LABORATORY MCHC 31.8 (L) 32.0 - [facility] 35.7 gm/dL [facility] LABORATORY Platelets 204 145 - 357 [facility] x10(3)/[facility] LABORATORY RDWSD 50.5 (H) 36.0 - [facility] RDWCV 15.3 (H) 11.4 - [facility] 13.8 % [facility] LABORATORY MPV 9.4 7.6 - 12.9 [facility] LABORATORY nRBC % Auto 0.0 % [facility] nRBC Abs Auto 0.000 0.000 - [facility] 0.[address] [facility] x10(3)/[facility] LABORATORY Specimen Anatomical Collection Method Collection Time Receive d Time (Source) Location / / Volume Laterality Blood specimen 07/29/2017 2:15 PM 018 2:36 (specimen) EST PM EST Resulting Agency Comment Spec In Lab Tamiko Jiménez MD HEMATOLOGY ORDERABLES Performing Organization Address City/State/ZIP Code Phon e Number [address] (ABNORMAL) Prothrombin Time (07/29/2017 2:15 PM EST) P athologist Signature PT 24.4 (H) 11.8 - 14.0 [facility] LABORATORY INR 2.2 (H) 0.9 [...] Address City/State/ZIP Code Phon e Number [address] Arterial Duplex Leg, Unil (07/29/2017 11:50 AM EST) Component Value Ref Test Analysis Performed At Patholo gist Range Method Time Signature VB Text Department: Vascular Surgery Lab VASCUBASE Report Patient: [id number] (GREGORY FATIMA) CPT: 24996 ICD10: Z09;I97.610 Referring Physician: TAMIKO JIMÉNEZ ?? [...] Department: Vascular Surgery Lab VASCUBASE Report Patient: [id number] (GREGORY FATIMA) CPT: 77098 ICD10: I82.441 Referring Physician: TAMIKO JIMÉNEZ ?? [...] he calf. Notification: Marquis Pathak MD (pager #[phone]) was notif ied of the preliminary findings. [...] STAT documented in this encounter Care Teams Casino Enforcement Agent Relationship Specialty Start Date End Date Lovely Vicente MD PCP - General 04/16/15 [facility] [address] [place] [address] documented as of this encounter
--- OUTSIDE RECORDS SUMMARY | 2022-02-27 15:14 | XMS_ITS | Encounter Summary ---
:1945 [place] [address] Care Team Providers Name Role Phone Lovely Vicente MD Primary Care Provider Encounter Details Date Type Department Care Team Description 08/04/2017 Orders Only Cardiac Surgery Makayla Wilson APRN [facility] [address] [facility] [place] [address] CARDIAC SURGERY [phone] [place], [place] [address] (Wo rk) Social History Tobacco [...] Nobles MD [facility] ER DR [place], [place] [address] (Wo rk) 06/10/2022 Office Visit Dermatology Laura Scherer MD [facility] DR TEJA [facility] [place], [place] [address] (Wo rk) documented as of this encounter Visit Diagnoses Not on filedocumented in this encounter Care Teams Ear Nose Throat Physician Relationship Specialty Start Date End Date Lovely Vicente MD PCP - General 04/16/15 [address] [place] [address] documented as of this encounter
--- OUTSIDE RECORDS SUMMARY | 2022-02-27 15:14 | XMS_ITS | Encounter Summary ---
:1945 [place] [address] Care Team Providers Name Role Phone Lovely Vicente MD Primary Care Provider Encounter Details Date Type Department Care Team Description 08/04/2017 Orders Only Cardiac Surgery Makayla Wilson APRN [facility] Jorge [facility] [place] [address] CARDIAC SURGERY [phone] [place], [place] [address] (Wo rk) Social History Tobacco [...] Nobles MD [facility] [place] [address] (Wo rk) 06/10/2022 Office Visit Dermatology Laura Scherer MD [facility] DR TEJA GR[address]DER[address] [place]LOG[place], [place] [address] (Wo rk) documented as of this encounter Visit Diagnoses Not on filedocumented in this encounter Care Teams Combat Control Manager Relationship Specialty Start Date End Date Lovely Vicente MD PCP - General 04/16/[address] [place] [address] documented as of this encounter
--- OUTSIDE RECORDS SUMMARY | 2022-02-27 15:14 | XMS_ITS | Encounter Summary ---
:1945 Author Organization [facility] [place] [address] Care Team Providers Name Role Phone Lovely Vicente MD Primary Care Provider Reason for Visit Auth/Cert Specialty Diagnoses / Procedures Referred By Contact Refer red To Contact Diagnoses Critical lower limb ischemia CELLULITIS RT FOOT Procedures EMERGENCY Referral ID Status Reason Start Date Expiration Date Visits Requ ested Visits Authorized [id number] 1 1 Encounter Details Date Type Department Care Team Description 08/06/2017 Hospital En[facility] [place] [address] Social History Tobacco Use Types Packs/Day [...] MD [facility] ER CARDIOLOGY [place], [place] [address] (Wo rk) 06/10/2022 Office Visit Dermatology Laura Scherer MD [facility] DR TEJA [facility] [place] [place] [address] (Wo rk) documented as of this encounter Visit Diagnoses Not on filedocumented in this encounter Care Teams Molecular Biology Director Relationship Specialty Start Date End Date Lovely Vicente MD PCP - General 04/16/[address] [place] [address] documented as of this encounter
--- OUTSIDE RECORDS SUMMARY | 2022-02-27 15:14 | XMS_ITS | Encounter Summary ---
:1945 Author Organization [place] [address] Care Team Providers Name Role Phone Lovely Vicente MD Primary Care Provider Reason for Visit Reason Comments Foot Ulcer WOUND CHECK Auth/Cert Specialty Diagnoses / Procedures Referred By Contact Refer red To Contact Diagnoses Critical lower limb ischemia CELLULITIS RT FOOT Procedures EMERGENCY Referral ID Status Reason Start Date Expiration Date Visits Requ ested Visits Authorized [id number] 1 1 Encounter Details Date Type Department Care Team Description 08/06/2017 [facility] ischemia [facility] [address] [place], [place] VASCULAR SURGERY [id number] [place] [address] [phone] Social History Tobacco Use Types Packs/Day Years [...] Smith MD - 08/06/2017 1:00 PM EST [facility] staff: 1. RIGHT leg CLI Interval [...] [facility] CARDIOLOGY [place], [place] [address] (Wo rk) 06/10/2022 Office Visit Dermatology Laura Scherer MD [facility] [address] TE[address] GR[address]DERMAT [place], [place] [address] (Wo rk) documented as of this encounter Visit Diagnoses Diagnosis Critical lower limb ischemia Unspecified circulatory system disorder documented in this encounter Care Teams Egg Smeller Relationship Specialty Start Date End Date Lovely Vicente MD PCP - General 04/16/[address] [place] [address] documented as of this encounter
--- OUTSIDE RECORDS SUMMARY | 2022-02-27 15:14 | XMS_ITS | Encounter Summary ---
:1945 Author Organization [facility] [place] [address] Care Team Providers Name Role Phone Lovely Vicente MD Primary Care Provider Reason for Visit Reason Comments Pain Management Ankle Pain Toe Pain Encounter Details Date Type Department Care Team Description 07/30/2017 Office Visit Pain Management at [facility], Per ipheral neuropathy [place] [employer] SQL DEVELOPER due to ischemia [facility] [address], [place], [place] [phone] Social History Tobacco Use Types Packs/Day Years [...] Soares APRN - 07/30/2017 1:45 PM EST [facility] [place] [address] Phone: PAIN MANAGEMENT NEW PATIENT / CONSULTATION NOTE DATE OF VISIT 07/30/2017 Patient Don Fatima 1945 REFERRING PROVIDER Lovely Vicente MD [address] [place] [address] PRIMARY CARE PROVIDER Lovely Vicente MD CHIEF [...] much relief PAST THERAPIES: Nothing MEDICATIONS The [place] Prescription Monitoring Program was checked and no [...] SETUP performed by Manny Mcknight MD at [facility] OR ??? PRO CABG, ARTERIAL, SINGLE N/A 07/07/2017 @CABG, USING ARTERIAL GRAFT;SINGLE ARTERIAL GRAFT (WRVU 33.75) performed by Yuan Retana MD at [facility] OR ??? PRO CABG, ARTERY-VEIN, TWO N/A 07/07/2017 @CABG, TWO VENOUS GRAFTS & ARTERIAL GRAFT (WRVU 7.93) performed by Yuan Retana MD at [facility] OR ??? PRO COLONOSCOPY, REMV LESN, SNARE 01/16/2014 COLONOSCOPY, POLYPECTOMY, REMOVAL LESION BY SNARE performed by Nohemi Jaimes MD at [facility] ENDOSCOPY ??? PRO ENDOSCOPY W/VIDEO-ASST VEIN HARVEST, CABG Right 07/07/2017 ENDOSCOPIC HARVEST VEIN(S) FOR CABG (WRVU 0.31) performed by Yuan Retana MD at [facility] OR ??? PRO THYROIDECTOMY 03/28/2013 THYROIDECTOMY, [...] referral, Lovely Vicente MD [address] [place] [address]. 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
--- OUTSIDE RECORDS SUMMARY | 2022-02-27 15:14 | XMS_ITS | Encounter Summary ---
:1945 Author Organization [place] [address] Care Team Providers Name Role Phone Lovely Vicente MD Primary Care Provider Reason for Visit Auth/Cert Specialty Diagnoses / Procedures Referred By Contact Refer red To Contact Diagnoses Critical lower limb ischemia CELLULITIS RT FOOT Procedures EMERGENCY Referral ID Status Reason Start Date Expiration Date Visits Requ ested Visits Authorized [id number] 1 1 Encounter Details Date Type Department Care Team Description 08/06/2017 Clinical Support [facility] Day [facility] Ischemia of foot [facility] [place] [address] Social History Tobacco Use Types Packs/Day [...] noother symptoms except severe right foot pain. [facility] clinic called as pt on route [...] MD [facility] [address] TADE[address] [place], [place] [address] (Wo rk) 06/10/2022 Office Visit Dermatology Laura Scherer MD [facility] DR [address]-DERMAT [place], [place] [address] (Wo rk) documented as [...] 444 ms MUSE SYSTEM (Bezet) Calculated P [place] 44 degrees MUSE SYSTEM Calculated R [place] -31 degrees MUSE SYSTEM Calculated T [place] 106 degrees MUSE SYSTEM INTERPRETATION Normal sinus [...] disorder documented in this encounter Care Teams Button Inspector Relationship Specialty Start Date End Date Lovely Vicente MD PCP - General 04/16/[address] [place] [address] documented as of this encounter
--- OUTSIDE RECORDS SUMMARY | 2022-02-27 15:14 | XMS_ITS | Encounter Summary ---
:1945 Author Organization [facility] Address [facility] [place] [address] Care Team Providers Name Role Phone Lovely Vicente MD Primary Care Provider Reason for Visit Auth/Cert Specialty Diagnoses / Procedures Referred By Contact Refer red To Contact Diagnoses Critical lower limb ischemia CELLULITIS RT FOOT Procedures EMERGENCY Referral ID Status Reason Start Date Expiration Date Visits Requ ested Visits Authorized [id number] 1 1 Encounter Details Date Type Department Care Team Description 08/04/2017 Laboratory Lab 3L [place] Cardiomyopathy, unspecified type; Appointment [facility] Systolic congestive heart failure, unspecified congestive heart failure chronicity; Hospital Coronary artery rupture; [facility] Ischemic cardiomyopathy; Drive Atherosclerosis of [place] co ronary artery, angina presence unspecified, unspecified whether [place] or transplanted heart; [place], [place] Essential hyper tension, malignant; [id number] 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 PROTHROMBIN TIME Routine 08/04/2017 12:55 Coronary artery Resu lts for this PM EST rupture procedure are in Ischemic the results cardiomyopathy section. Atherosclerosis of [place] coronary artery, angina presence unspecified, unspecified whether [place] or transplanted heart URIC ACID Routine 08/04/2017 [...] with the results diabetic section. nephropathy, unspecified pipeline operator insulin use status Essential hypertension, malignant COMPREHENSIVE Routine 08/04/2017 12:55 Essential Results fo r this METABOLIC PANEL PM EST hypertension, procedure a re in (NON-FASTING) malignant the results section. documented in this encounter Results Uric acid (08/04/2017 12:55 PM EST) P athologist Signature Uric Acid 7.1 3.5 - 8.5 [facility] mg/dL [facility] Specimen Anatomical Collection Method Collection Time Receive d Time (Source) Location / / Volume Laterality Blood specimen 08/04/2017 12:55 8 1:01 (specimen) PM EST PM EST Resulting Agency Comment Spec In Lab Lovely Vicente MD CHEMISTRY ORDERABLES Performing Organization Address City/State/[place] [address] (ABNORMAL) Hemogram (08/04/2017 12:55 PM EST) Analysis Performed At Patho logist Time Signature WBC 15.8 (H) 4.0 - 9.5 [facility] x10(3)/[facility] LABORATORY RBC 3.48 (L) 4.58 - [facility] 5.54 [facility] x10(6)/[facility] LABORATORY Hemoglobin 9.9 (L) 13.7 - [facility] 16.5 gm/dL [facility] Hematocrit 31.4 (L) 40.5 - [facility] 48.5 % [facility] MCV 90.2 82.9 - [facility] 93.1 [facility] LABORATORY MCH 28.4 27.5 - [facility] 32.1 pg [facility] MCHC 31.5 (L) 32.0 - [facility] 35.7 gm/dL [facility] Platelets 310 145 - 357 [facility] x10(3)/[facility] LABORATORY RDWSD 51.8 (H) 36.0 - [facility] 45.0 [facility] LABORATORY RDWCV 15.8 (H) 11.4 - [facility] 13.8 % [facility]ATORY MPV 8.9 7.6 - 12.9 [facility] LABORATORY nRBC % Auto 0.0 % [facility] LAB[facility] nRBC Abs Auto 0.000 0.000 - [facility] 0.000 [facility] x10(3)/[facility] LABORATORY Specimen Anatomical Collection Method Collection Time Receive d Time (Source) Location / / Volume Laterality Blood specimen 08/04/2017 12:55 8 1:01 (specimen) PM EST PM EST Resulting Agency Comment Spec In Lab Lovely Vicente MD HEMATOLOGY ORDERABLES Performing Organization Address City/State/[place] [address] (ABNORMAL) Comprehensive metabolic panel (non-fasting) (08/04/2017 12:55 PM EST) P athologist Signature Glucose Lvl 208 (H) 65 - 199 [facility] mg/dL [facility] Comment: Diabetes: >=200 mg/dL plus symp toms BUN 32 (H) 10 - 20 mg/dL [facility] Creatinine 1.58 (H) 0.80 - 1.50 mg/dL [facility] Sodium 136 135 - 145 mmol/L [facility] Potassium 5.5 (H) 3.5 - 5.0 mmol/L [facility] [...] mmol/L [facility] Anion Gap 14 5 - 15 mmol/L [facility] Calcium 8.6 8.5 - 10.5 mg/dL [facility] Total Protein 6.9 6.1 - 8.0 gm/dL [facility] Albumin 3.4 3.2 - 5.2 gm/dL [facility] AST 20 0 - 39 unit/L [facility] ALT 21 0 - 55 unit/L [facility] Alk Phos 93 40 - 120 unit/L [facility] Total Bilirubin 0.4 0.2 - 1.3 mg/dL [facility] Estimated GFR 43 (L) >=60 [facility] Comment: The reported eGFR should be multiplied b y 1.2 for patients. The MDRD is not an appropriate measure o f renal function for patients with body mass extremes or in patients with acute kidney failure. http://[employer].RealSelf/DHnkdep http://[employer].RealSelf/DHMCnkf Specimen Anatomical Collection Method Collection Time Receive d Time (Source) Location / / Volume Laterality Blood specimen 08/04/2017 12:55 8 1:01 (specimen) PM EST PM EST Resulting Agency Comment Spec In Lab Lovely Vicente MD CHEMISTRY ORDERABLES Performing Organization Address City/State/[place] [address] (ABNORMAL) Hemoglobin A1c (08/04/2017 12:55 PM EST) Analysis [facility] At [facility] Time Signature Hemoglobin A1C 6.2 (H) 4.3 - 5.6 [facility] [...] Mellitus, Diabetes Care 2013; 36: Suppl. 1, U87-00 Est Avg Gluc See note mg/dL [facility] [...] into estimated average glucose values. ??Diabetes Care 2008:31(8):5522-0590. Specimen Anatomical Collection Method Collection Time Receive d Time (Source) Location / / Volume Laterality Blood specimen 08/04/2017 12:55 8 1:01 (specimen) PM EST PM EST Resulting Agency Comment Spec In Lab Lovely Vicente MD CHEMISTRY ORDERABLES Performing Organization Address City/[facility]/[place] [address] (ABNORMAL) Prothrombin Time (08/04/2017 12:55 PM EST) P athologist Signature PT 35.4 (H) 11.8 - 14.0 [facility] [place] [facility] LABORATORY INR 3.5 (H) 0.9 - 1.1 [facility] [...] Vicente MD HEMATOLOGY ORDERABLES Performing Organization Address City/[facility]/[place] [address] (ABNORMAL) pro-Brain Natriuretic Peptide (08/04/2017 12:55 PM EST) P athologist Signature ProBNP 3,133 (H) <=125 [facility] pg/mL [facility] Specimen Anatomical Collection Method Collection Time Receive d Time (Source) Location / / Volume Laterality Blood specimen 08/04/2017 12:55 8 1:01 (specimen) PM EST PM EST Resulting Agency Comment Spec In Lab Danette Maxwell APRN CHEMISTRY ORDERABLES Performing Organization Address City/[facility]/[place] [address] documented in this encounter Visit Diagnoses Diagnosis Cardiomyopathy, unspecified type Systolic congestive heart failure, unspe cified congestive heart failure chronicity Coronary artery rupture Acute myocardial infarction, unspecified site, episode of care unspecified Ischemic cardiomyopathy Other specified forms of chronic ischemi c heart disease Atherosclerosis of [place] coronary arter y, angina presence unspecified, unspecified whether [place] or transplanted heart Essential hypertension, malignant Diabetes mellitus due to underlying cond ition with diabetic nephropathy, unspecified pipeline operator insulin use status documented in this encounter Care Teams Porcelain Turner Relationship Specialty Start Date End Date Lovely Vicente MD PCP - General 04/16/[address] [place] [address] documented as of this encounter
--- OUTSIDE RECORDS SUMMARY | 2022-02-27 15:14 | XMS_ITS | Encounter Summary ---
:1945 [place] [address] Care Team Providers Name Role Phone Lovely Vicente MD Primary Care Provider Encounter Details Date Type Department Care Team Description 07/29/2017 Hospital Encounter Vascular Lab at Critic monica Huber lower limb [facility] [place] [id number] Social History Tobacco Use Types Packs/Day Years [...] MD [facility] [address] [place], [place] [address] (Wo rk) 06/10/2022 Office Visit Dermatology Laura Scherer MD [facility] DR [address] OGY [place], [place] [address] (Wo rk) documented as of this encounter Visit Diagnoses Diagnosis Critical lower limb ischemia Unspecified circulatory system disorder documented in this encounter Care Teams General Handling Supervisor Relationship Specialty Start Date End Date Lovely Vicente MD PCP - General 04/16/[address] [place] [address] documented as of this encounter
--- OUTSIDE RECORDS SUMMARY | 2022-02-27 15:14 | XMS_ITS | Encounter Summary ---
:1945 Author Organization [facility] [address] Care Team Providers Name Role Phone Lovely Vicente MD Primary Care Provider Reason for Visit Auth/Cert Specialty Diagnoses / Procedures Referred By Contact Refer red To Contact Diagnoses Critical lower limb ischemia CELLULITIS RT FOOT Procedures EMERGENCY Referral ID Status Reason Start Date Expiration Date Visits Requ ested Visits Authorized [id number] 1 1 Encounter Details Date Type Department Care Team Description 08/04/2017 Hospital Encounter XRay at [facility] Danette Maxwell Incisional pain [address] [place] [address] Dr Gomes, SMALL BUSINESS DIRECTOR [facility] [phone] CARDIOLOGY [place], [place] [address] Social History Tobacco Use Types [...] Nobles MD [facility] CARDIOLOGY [place], [place] [address] (Wo rk) 06/10/2022 Office Visit Dermatology Laura Scherer MD [facility] DR TE[address] GR[address]DERMAT OLOGY [place], [place] [address] (Wo rk) documented as of [...] sensation documented in this encounter Care Teams Sales And Events Coordinator Relationship Specialty Start Date End Date Lovely Vicente MD PCP - General 04/16/[address] [place] [address] documented as of this encounter
--- OUTSIDE RECORDS SUMMARY | 2022-02-27 15:14 | XMS_ITS | Encounter Summary ---
:1945 [place] [address] Care Team Providers Name Role Phone Lovely Vicente MD Primary Care Provider Encounter Details Date Type Department Care Team Description 08/05/2017 Notes Only Vascular Surgery at [facility] Eden Moss, STACIE [facility] [place] [address] VASCULAR SURGERY [phone] [place], [place] [address] (Wo rk) Social History Tobacco [...] Vitaliy Nobles MD [facility] ER [address] TADEO [place], [place] [address] (Wo rk) 06/10/2022 Office Visit Dermatology Laura Scherer MD [facility] DR [address] GR[address]DERMAT [place], [place] [address] (Wo rk) documented as of this encounter Visit Diagnoses Not on filedocumented in this encounter Care Teams Cruise Agent Relationship Specialty Start Date End Date Lovely Vicente MD PCP - General 04/16/[address] [place] [address] documented as of this encounter
--- OUTSIDE RECORDS SUMMARY | 2022-02-27 15:14 | XMS_ITS | Encounter Summary ---
:1945 [place] [address] Care Team Providers Name Role Phone Lovely Vicente MD Primary Care Provider Encounter Details Date Type Department Care Team Description 08/03/2017 Hospital Encounter Radiology Library at [place], Tommy Mijares [facility] [place] [address] VASCULAR SURGERY [phone] [place], [place] [address] (Wo rk) Social History [...] Vitaliy Nobles MD [facility] CARDIOLOGY [place], [place] [address] ( rk) 06/10/2022 Office Visit Dermatology Laura Scherer MD [facility] DR TE[address] GR-DERMAT OLOGY [place], [place] [address] [...] City/State/ZIP Code Phon e Number [facility] [place], [place] documented in this encounter Visit Diagnoses Diagnosis Pain Generalized pain documented in this encounter Care Teams Pneumatic Tool Operator Relationship Specialty Start Date End Date Lovely Vicente MD PCP - General 04/16/[address] [place] [address] documented as of this encounter
--- OUTSIDE RECORDS SUMMARY | 2022-02-27 15:14 | XMS_ITS | Encounter Summary ---
:1945 Author Organization [facility] [place] [address] Care Team Providers Name Role Phone Lovely Vicente MD Primary Care Provider Encounter Details Date Type Department Care Team Description 07/29/2017 Transcribe Orders Laboratory Lovely Vicente MD [address] [phone] [place], [place] [address] (Wo rk) Social History Tobacco Use Types [...] Vitaliy Nobles MD [facility] ER DR TADEO [place], [place] [address] (Wo rk) 06/10/2022 Office Visit Dermatology Laura Scherer MD [facility] ER DR TEJA GR-DERMAT OLOGY [place], [place] [address] (Wo rk) documented as of this encounter Visit Diagnoses Not on filedocumented in this encounter Care Teams Commercial Fisherman Relationship Specialty Start Date End Date Lovely Vicente MD PCP - General 04/16/[address] [facility] [place] [address] documented as of this encounter
--- OUTSIDE RECORDS SUMMARY | 2022-02-27 15:14 | XMS_ITS | Encounter Summary ---
:1945 Author Organization [facility] [place] [address] Care Team Providers Name Role Phone Lovely Vicente MD Primary Care Provider Encounter Details Date Type Department Care Team Description 08/06/2017 Orders Only Vascular Surgery at [facility] Eden Moss APRN Ischemia of foot [facility] Jorge [facility] [place] [address] VASCULAR SURGERY [phone] [place], [place] [address] (Wo rk) Social History [...] Nobles MD [facility] ER DR [place]LE [place], [place] [address] (Wo rk) 06/10/2022 Office Visit Dermatology Laura Scherer MD [facility] ER DR TEJA GR-DERMAT OLOGY [place], [place] [address] (Wo rk) documented as [...] 444 ms MUSE SYSTEM (Bezet) Calculated P [place] 44 degrees MUSE SYSTEM Calculated R Loraine -31 degrees MUSE SYSTEM Calculated T Lor[place] 106 degrees MUSE SYSTEM INTERPRETATION Normal sinus [...] Signature Prealbumin 19 (L) 20 - 40 [facility]/dL [facility] LABOR[facility]ORY Comment: Prealbumin levels are generally lower [...] Address City/State/[place] [address] (ABNORMAL) Basic Metabolic Panel (non-fasting) (08/06/2017 12:32 PM EST) P athologist Signature Glucose Lvl 92 65 - 199 [facility] mg/dL [facility] Comment: [...] 107 mmol/L [facility]OR[facility]ORY CO2 25 22 - 31 mmol/L [facility] Anion Gap 16 (H) 5 - 15 mmol/L [facility]ORY Calcium 8.5 8.5 - 10.5 mg/dL [facility] Estimated GFR 53 (L) >=60 [facility] Comment: The reported eGFR should be multiplied b y 1.2 for patients. The MDRD is not an appropriate measure o f renal function for patients with body mass extremes or in patients with acute kidney failure. http://[employer].Lagotek/DHnkdep http://[employer]/DHMCnkf Specimen Anatomical Collection Method Collection Time Receive d Time (Source) Location / / Volume Laterality Blood specimen 08/06/2017 12:32 8 1:15 (specimen) PM EST PM EST Resulting Agency Comment Spec In Lab Arik Clement MD CHEMISTRY ORDERABLES Performing Organization Address City/State/[place] [address] (ABNORMAL) Hemogram (08/06/2017 12:32 PM EST) Analysis Performed At Patho logist Time Signature WBC 11.8 (H) 4.0 - 9.5 [facility] x10(3)/[facility] LABORATORY RBC 3.49 (L) 4.58 - [facility] 5.54 [facility] x10(6)/[facility] LABORATORY Hemoglobin 9.9 (L) 13.7 - [facility] 16.5 gm/dL [facility] Hematocrit 32.0 (L) 40.5 - [facility] 48.5 % [facility]ORATORY MCV 91.7 82.9 - [facility] 93.1 [facility] LABORATORY MCH 28.4 27.5 - [facility] 32.1 pg [facility] MCHC 30.9 (L) 32.0 - [facility] 35.7 gm/dL [facility] Platelets 326 145 - 357 [facility] x10(3)/[facility] LABORATORY RDWSD 53.4 (H) 36.0 - [facility] 45.0 [facility] LABORATORY RDWCV 16.0 (H) 11.4 - [facility] 13.8 % [facility] LABORATORY MPV 9.1 7.6 - 12.9 [facility] LABORATORY nRBC % Auto 0.0 % [facility] LABORATORY nRBC Abs Auto 0.000 0.000 - [facility] 0.000 [facility] x10(3)/[facility] LABORATORY Specimen Anatomical Collection Method Collection Time Receive d Time (Source) Location / / Volume Laterality Blood specimen 08/06/2017 12:32 8 1:15 (specimen) PM EST PM EST Resulting Agency Comment Spec In Lab Arik Clement MD HEMATOLOGY ORDERABLES Performing Organization Address City/State/[place] [address] documented in this encounter Visit Diagnoses Diagnosis Ischemia of foot Unspecified circulatory system disorder documented in this encounter Care Teams Graphics Edit Technician Relationship Specialty Start Date End Date Lovely Vicente MD PCP - General 04/16/[address] [place] [address] documented as of this encounter
--- OUTSIDE RECORDS SUMMARY | 2022-02-27 15:14 | XMS_ITS | Encounter Summary ---
:1945 Author Organization [facility] [place] [address] Care Team Providers Name Role Phone Lovely Vicente MD Primary Care Provider Reason for Visit Auth/Cert Specialty Diagnoses / Procedures Referred By Contact Refer red To Contact Diagnoses Critical lower limb ischemia CELLULITIS RT FOOT Procedures EMERGENCY Referral ID Status Reason Start Date Expiration Date Visits Requ ested Visits Authorized [id number] 1 1 Encounter Details Date Type Department Care Team Description 08/06/2017 Laboratory Appointment Lab [place] [facility] [place] [address] Social History Tobacco Use Types Packs/Day [...] Nobles MD [facility] ER [address] [place], [place] [address] (Wo rk) 06/10/2022 Office Visit Dermatology Laura Scherer MD [facility] ER DR TEJA GR-DERMAT OLOGY [place], [place] [address] (Wo rk) documented as [...] Signature Prealbumin 19 (L) 20 - 40 [facility] mg[facility] Comment: Prealbumin [...] Organization Address City/State/[place] [address] (ABNORMAL) Basic Metabolic Panel (non-fasting) (08/06/2017 12:32 PM EST) P athologist Signature Glucose Lvl 92 65 - 199 [facility] mg/dL [facility] Comment: Diabetes: >=200 mg/dL plus symp toms BUN 29 (H) 10 - 20 mg/dL [facility] Creatinine 1.33 0.80 - 1.50 mg/dL [facility] Calcium 8.5 8.5 - 10.5 mg/dL [facility] Estimated GFR 53 (L) >=60 [facility] Comment: The reported eGFR should be multiplied b y 1.2 for patients. The MDRD is not an appropriate measure o f renal function for patients with body mass extremes or in patients with acute kidney failure. http://rankdesk/DHnkdep http://rankdesk/DHMCnkf Specimen Anatomical Collection Method Collection Time Receive d Time (Source) Location / / Volume Laterality Blood specimen 08/06/2017 12:32 8 1:15 (specimen) PM EST PM EST Resulting Agency Comment Spec In Lab Arik Clement MD CHEMISTRY ORDERABLES Performing Organization Address City/State/[place] [address] (ABNORMAL) Hemogram (08/06/2017 12:32 PM EST) Analysis Performed At Patho logist Time Signature WBC 11.8 (H) 4.0 - 9.5 [facility] x10(3)/[facility] LABORATORY RBC 3.49 (L) 4.58 - [facility] x10(6)/[facility] LABORATORY Hemoglobin 9.9 (L) 13.7 - [facility] 16.5 gm/dL [facility] Hematocrit 32.0 (L) 40.5 - [facility] 48.5 % [facility] MCV 91.7 82.9 - [facility] 93.[address] [facility] MCH 28.4 27.5 - [facility] 32.[address] [facility] MCHC 30.9 (L) 32.0 - [facility] 35.7 gm/dL [facility] Platelets 326 145 - 357 [facility] x10(3)/[facility] LABORATORY RDWSD 53.4 (H) 36.0 - [facility] 45.0 [facility] LABORATORY RDWCV 16.0 (H) 11.4 - [facility] 13.8 % [facility] MPV 9.1 7.6 - 12.9 [facility] LABORATORY nRBC % Auto 0.0 % [facility] nRBC Abs Auto 0.000 0.000 - [facility] 0.000 [facility] x10(3)/[facility] LABORATORY Specimen Anatomical Collection Method Collection Time Receive d Time (Source) Location / / Volume Laterality Blood specimen 08/06/2017 12:32 8 1:15 (specimen) PM EST PM EST Resulting Agency Comment Spec In Lab Arik Clement MD HEMATOLOGY ORDERABLES Performing Organization Address City/State/[place] [address] documented in this encounter Visit Diagnoses Diagnosis Ischemia of foot Unspecified circulatory system disorder documented in this encounter Care Teams Pilates Instructor Relationship Specialty Start Date End Date Lovely Vicente MD PCP - General 04/16/[address] [place] [address] documented as of this encounter
--- OUTSIDE RECORDS SUMMARY | 2022-02-27 15:14 | XMS_ITS | Encounter Summary ---
:1945 [place] [address] Care Team Providers Name Role Phone Lovely Vicente MD Primary Care Provider Reason for Visit Auth/Cert Specialty Diagnoses / Procedures Referred By Contact Refer red To Contact Diagnoses Critical lower limb ischemia CELLULITIS RT FOOT Procedures EMERGENCY Referral ID Status Reason Start Date Expiration Date Visits Requ ested Visits Authorized [id number] 1 1 Encounter Details Date Type Department Care Team Description 08/09/2017 Anesthesia Event Main Operating Room Daniele Lizama MD [facility] [place] [address] [facility] Rob Jones MD [facility] [place] [address] [place] [address] Anesthesia Record Procedure Summary Procedure Name [...] Knowles, Dory arm), right; VAMSI Rios, RN rfla-vzk-jycawl catheter system; 20 gauge; 08/16/17; 1047 PIV 07/29/17; 1413; median 07/29/17 1413 by 08/16/17 1047 by cubital vein (antecubital Magdalene Hickey Williams, Dory fossa), left; VAMSI Wyatt, RN mmia-yje-vikzgf catheter system; 20 gauge; 08/16/17; 1047 PIV 08/06/17; 1742; cephalic 08/06/17 1742 by 0920 by vein (lateral side of Taylor Laureano Danah y, Caitlyn C, arm), right; VAMSI BONNER ehyj-yyi-xobabl catheter system; 22 gauge, 1 in length; Eliseo LAUREANO RN VAS; distraction, intradermal injection, tolerated well, appears comfortable; 0; 08/16/17; 0920 Wound 08/07/17; 1335; knee; 08/07/17 1335 by 08/16/17 1047 by laceration; wound occured Barbara Albert iams, Dory BURRER MARKER AXLE; 08/16/17; 1047 VAMSI Alonzo, RN PIV 08/07/17; 1734; cephalic 08/07/17 1734 by 1047 by vein (lateral side of Kendrick, Carlos W, Willia ms, Dory arm), left; MARCIE Wyatt RN clri-liy-ovlllf catheter system; 22 gauge; distraction, intradermal injection, [...] Stop Room / Location 08/09/17 0802 0901 [facility] OR 14 / [facility] MAIN OR Procedure Diagnosis Surgeon Responsible Provider AMPUTATION, 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 Nerve [...] SETUP performed by Manny Mcknight MD at [facility] MAIN OR ??? PRO CABG, ARTERIAL, SINGLE N/A 07/07/2017 @CABG, USING ARTERIAL GRAFT;SINGLE ARTERIAL GRAFT (WRVU 33.75) performed by Yuan Retana MD at [facility] MAIN OR ??? PRO CABG, ARTERY-VEIN, TWO N/A 07/07/2017 @CABG, TWO VENOUS GRAFTS & ARTERIAL GRAFT (WRVU 7.93) performed by Yuan Retana MD at [facility] MAIN OR ??? PRO COLONOSCOPY, REMV LESN, SNARE 01/16/2014 COLONOSCOPY, POLYPECTOMY, REMOVAL LESION BY SNARE performed by Nohemi Jaimes MD at [facility] ENDOSCOPY ??? PRO ENDOSCOPY W/VIDEO-ASST VEIN HARVEST, CABG Right 07/07/2017 ENDOSCOPIC HARVEST VEIN(S) FOR CABG (WRVU 0.31) performed by Yuan Retana MD at [facility] MAIN OR ??? PRO THYROIDECTOMY 03/28/2013 THYROIDECTOMY, TOTAL OR COMPLETE performed by Manny Mcknight MD at [facility] MAIN OR Social History Substance Use [...] adequate IV access. Brody Santillan MD PGY-2, [facility] Pager #[phone] Anesthesiology Staff (Dewhirst): Pre-op summary note as [...] Nobles MD [facility] [address] [place], [place] [address] (Wo rk) 06/10/2022 Office Visit Dermatology Laura Scherer MD [facility] DR [address] [place], [place] [address] (Wo rk) documented as of [...] Length: 10 cm Gauge: 21 Needle Type: M-nqayh-uvzua Medication injection made in crementally with aspirations. [...] Procedure) documented in this encounter Care Teams Calculation Clerk Relationship Specialty Start Date End Date Lovely Vicente MD PCP - General 04/16/[address] [place] [address] documented as of this encounter
--- OUTSIDE RECORDS SUMMARY | 2022-02-27 15:14 | XMS_ITS | Encounter Summary ---
:1945 Author Organization [facility] [place] [address] Care Team Providers Name Role Phone Lovely Vicente MD Primary Care Provider Reason for Visit Auth/Cert Specialty Diagnoses / Procedures Referred By Contact Refer red To Contact Diagnoses Critical lower limb ischemia CELLULITIS RT FOOT Procedures EMERGENCY Referral ID Status Reason Start Date Expiration Date Visits Requ ested Visits Authorized [id number] 1 1 Encounter Details Date Type Department Care Team Description 08/09/2017 Surgery Main Operating Room Yonathan Smith AM PUTATION, Mary Hitchcock MD TRANSMETATARSAL ([facility] 12.71) [facility] DR Siddiqui [place] [address] [place] [address] [phone] Social History Tobacco Use Types Packs/Day Years [...] 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 Patient [...] Dorsalis Pedis (Ankle) Artery ?132 ? 0.94 ??Cass-Biphasic ? Posterior Tibial (Ankle) Artery ??154 ? 1.10 ??Cass-Biphasic ? Fourth Toe ? 67 ?0.48 ?? [...] the foot. Discharge Conditions/Prognosis: Good Discharge to: [facility] Rehab Discharge Medications: Your Medications New [...] For any problems or questions please call [phone] ZELDA Smith, bi developer Nurse Clinician For issues on weeknights after 5pm and weekends please call [phone] and ask for the Vascular Fellow customer retention representative. General Instructions None Future Appointments and Orders Future Appointments Provider Department Dept Phone 08/26/2017 4:00 PM Aurelia Rivera PA Vascular Surgery at [place] [phone] 09/07/2017 3:00 PM LAB, THREE L Lab 3L [facility] [phone] 09/07/2017 4:00 PM Luz Prescott MD Endocrinology at [place] [phone] 09/09/2017 8:00 AM Barbra Soares APRN Pain Management at [place] [phone] Please bring a list of your current [...] For any problems or questions please call [phone] ZELDA Smith, bi developer Nurse Clinician For issues on weeknights after 5pm and weekends please call [phone] and ask for the Vascular Fellow customer retention representative. documented in this encounter Medications at Time [...] [facility] ([facility]) [address] [id number] Transportation: with (at bedside) Time of Discharge: by 12 noon Level of Care: swing Patient Aware: yes Family Notified: yes Md to call report to: Yissel Quintero MEDIA PROMOTER already called RN to call report to: [phone] Shirin Wolf Office of Care Management Pager [phone] Shirin Wolf RN - 08/16/2017 10:50 AM EST [facility] has offered pt swing bed. Pt and accept bed. will transport via car. MEDIA PROMOTER Yissel Quintero aware; d/c paperwork will be completed by 12 noon. [facility] requests pt arrival by 1400 today; MEDIA PROMOTER, RN, and family aware. MEDIA PROMOTER called [facility] and was told that they prefer pt to arrive with wound vac dressing applied but clamped. MEDIA PROMOTER applied new wound vac dressing. RN has [facility] number to call report. PASSR completed; MEDIA PROMOTER paged to request provider signature in highlighted space. Indigo from [facility] notified via email that home wound vac now cancelled; [facility] has picked up from room and order cancelled. Packet started and provided to community health agent. Medicare important message explained to patient, patient signed. Copy provided to patient and signature page to OCM for inclusion in pt EMR. L Radha Powers Yoselin - 08/16/2017 10:34 AM EST Office of Care Management/Independent Freight Agent Patient Name: Gregory Hoang : 1945 Patient has been offered a swing bed at [facility]. The patient will be transported by private transportation. No MD to MD report necessary Please call Nursing Report to [phone], ask for aircraft maintenance technician. Info to accompany patient: Narcotic Prescriptions Copies of Medication Administration Records and IV sheets for past 10 days. Plan: Independent Freight Agent will be available to the patient and Senior Director Of Strategy-RN and/or Paperboard Boxes Estimator for further assistance. Patient will be discharged to: [place] [id number] Radha Powers, Independent Freight Agent Mira Truong, VAMSI - 08/15/2017 10:05 PM EST [address] Flores to ask if he wanted to hold metoprolol dose. BP 95/58. OK to hold this dose Courtney Brito - 08/15/2017 3:26 PM EST Office of Care Management(OCM)/Independent Freight Agent(RS)/ D/C Planning re : Patient is medically ready for d/c today. RS has been in contact with [facility] to see if they could offer a bed. [facility] is still reviewing the case and need their MD to review chart prior to accepting or declining. OCM team needs to check in with [facility] tomorrow to check on status. 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 Vac in [...] patient's referral to: [facility] PHONE: [phone] FAX: [phone] CM spoke with RS who said that [...] would be accepted to acute rehab at [facility] as Dr. Smith had [...] rehab. Await recommendations from PT. Covering pager #[phone]. 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 Pipe Puller Kaitlin Saha, RN Pager #[phone] Payam Rosales - 08/13/2017 2:37 PM EST Pump Erector Encounter Note Patient Name: Gregory Hoang : [id number] MR#: [id number] Admit Date: 08/06/2017 1:41 PM Hospital Day 7 days Narrative: Visited to introduce and assess acceptance of [facility] services. Pt was awake, alert, oriented and in chair and family was there. Assessment:Patient coping positively with stresses of illness/hospitalization at this time. Pt says that he is hoping to get better and his family was there. Pt says that he has family care and supportand taking one day at time. Intervention and Outcome: Provided emotional support and encouraging presence. 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 A letter describing our affiliations was reviewed with them and theywere educated about their right to choose where referrals are placed. Patient requests referral to [facility]. PHONE: [phone] FAX: [phone]. And Home NPWT (Negative Pressure Wound Therapy) aka wound vac device made available to pt. Serial # confirmed. Reviewed [facility] Proof of Delivery/Assignment of Benefits Statement(POD/AOB) Form w patient or authorized agent signing on behalf of patient. Copy of POD/AOB provided to pt and other copy faxed to [employer] @ fax# [phone] Expected date of discharge: 08/12/2017. 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 Address: [address] [place] [address] [place] [address] (home) Mobile: Telephone Information: Referring Provider: No [...] SETUP performed by Manny Mcknight MD at [facility] MA[facility] OR ??? PRO CABG, ARTERIAL, SINGLE N/A 07/07/2017 @CABG, USING ARTERIAL GRAFT;SINGLE ARTERIAL GRAFT (WRVU 33.75) performed by Yuan Retana MD at [facility] MAIN OR ??? PRO CABG, ARTERY-VEIN, TWO N/A 07/07/2017 @CABG, TWO VENOUS GRAFTS & ARTERIAL GRAFT (WRVU 7.93) performed by Yuan Retana MD at [facility] MAIN OR ??? PRO COLONOSCOPY, REMV LESN, SNARE 01/16/2014 COLONOSCOPY, POLYPECTOMY, REMOVAL LESION BY SNARE performed by Nohemi Jaimes MD at [facility] ENDOSCOPY ??? PRO ENDOSCOPY W/VIDEO-ASST VEIN HARVEST, CABG Right 07/07/2017 ENDOSCOPIC HARVEST VEIN(S) FOR CABG (WRVU 0.31) performed by Yuan Retana MD at [facility] MA[facility] OR ??? 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 Heparin gtt continues to run. Pt [...] 3 pillows to aid with throbbing pain. Maddsion Holly RN - 08/10/2017 5:40 AM EST [...] was 188, 0u given as per order. Vriy Weir MD - 08/09/2017 1:47 PM EST Post-op Check Patient Name: Gregory Hoang Patient Age: 72 y.o. Attending Physician: Yonathan Smith MD Gregory Hoagn is a 72 y.o. male s/p Procedure(s) [...] of : 1945 AGE 72 y.o. Address: [address] [place] [address] [place] [address] (home) Mobile: Telephone Information: Referring Provider: No [...] SETUP performed by Manny Mcknight MD at [facility] OR ??? PRO CABG, ARTERIAL, SINGLE N/A 07/07/2017 @CABG, USING ARTERIAL GRAFT;SINGLE ARTERIAL GRAFT (WRVU 33.75) performed by Yuan Retana MD at [facility] MA[facility] OR ??? PRO CABG, ARTERY-VEIN, TWO N/A 07/07/2017 @CABG, TWO VENOUS GRAFTS & ARTERIAL GRAFT (WRVU 7.93) performed by Yuan Retana MD at [facility] OR ??? PRO COLONOSCOPY, REMV LESN, SNARE 01/16/2014 COLONOSCOPY, POLYPECTOMY, REMOVAL LESION BY SNARE performed by Nohemi Jaimes MD at [facility] ENDOSCOPY ??? PRO ENDOSCOPY W/VIDEO-ASST VEIN HARVEST, CABG Right 07/07/2017 ENDOSCOPIC HARVEST VEIN(S) FOR CABG (WRVU 0.31) performed by Yaun Retana MD at [facility] MA[facility] OR ??? 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 Unsuccessful draw attempt, another interpreter for the deaf [facility] test. 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 Vascular resident customer retention representative and will forward result to the team prior to rounds. Melba Cruz RN - 08/08/2017 4:06 AM EST Fall Event Note Gregory Hoang [id number] 08/08/2017 Time of Fall: 0400 Was the [...] Starkey MD - 08/07/2017 4:[address] 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 Patient [...] SETUP performed by Manny Mcknight MD at [facility] OR ??? PRO CABG, ARTERIAL, SINGLE N/A 07/07/2017 @CABG, USING ARTERIAL GRAFT;SINGLE ARTERIAL GRAFT (WRVU 33.75) performed by Yuan Retana MD at [facility] MA[facility] OR ??? PRO CABG, ARTERY-VEIN, TWO N/A 07/07/2017 @CABG, TWO VENOUS GRAFTS & ARTERIAL GRAFT (WRVU 7.93) performed by Yuan Retana MD at [facility] MA[facility] OR ??? PRO COLONOSCOPY, REMV LESN, SNARE 01/16/2014 COLONOSCOPY, POLYPECTOMY, REMOVAL LESION BY SNARE performed by Nohemi Jaimes MD at [facility] ENDOSCOPY ??? PRO ENDOSCOPY W/VIDEO-ASST VEIN HARVEST, CABG Right 07/07/2017 ENDOSCOPIC HARVEST VEIN(S) FOR CABG (WRVU 0.31) performed by Yuan Retana MD at [facility] MAIN OR ??? PRO THYROIDECTOMY 03/28/2013 THYROIDECTOMY, TOTAL OR COMPLETE performed by Manny Mcknight MD at [facility] MA[facility] OR Functional Status/Social Hx: Quit [...] left blue toes with CTA showing R MAINSPRING FORMER BRACE END pseudoaneurysm (now thrombosed) and occluded ATs bilaterally. [...] 2.5x80 5. Completion RLE angiogram 6. L MAINS[employer]ING FORMER BRACE END angiogram 7. Mynx closure Surgeons: Hank Washington [...] blue toe syndrome (possibly from a right MAINS[place]ING FORMER BRACE END PSA which has since thrombosed), now admitted [...] - RLE angiogram demonstrated: Widely patent R [employer]ING FORMER BRACE END with small amount of flow seen in [...] on the foot via collaterals. - L [place] FORMER BRACE END angriogram demonstrated: High femoral bifurcation over the proximal half of the femoral head. L [employer] FORMER BRACE END access in the distal L [employer]INS[employer]ING FORMER BRACE END. - Closure device: Mynx Technical Procedure: The [...] for a 45cm 5F Destination. V18 and [place] and QuickCross catheters were used to select [...] 5F. A stationed picture of the L [place] FORMER BRACE END was performed as the patient was noted to have a very high bifurcation. Access appeared in the distal R [place] FORMER BRACE END. Closure and sheath removal was performed with [...] PM EST 1440 report called to 5 adams run nurse Tessa RN documented in this encounter [...] with pt and pt's spouse. Discharge to [facility]. Goal: Individualization & Mutuality Outcome: Outcome [...] sit/sit to supine -- Bed Mobility Goal, Hardy Level independent -- Bed Mobility Goal, Date [...] days -- Transfer Training Goal, Activity Type cac-tn-dacfa/eawrj-bp-nmw -- Transfer Train Goal, Hardy Level conditional independence -- Transfer Train Goal, [...] call cabello within reach, Hourly rounding by RN/YARN DYER. Bed alarm / Chair alarm. Patient-specific fall [...] MD - 08/15/2017 6:28 PM EST [facility] Operative Note Patient Name: Gregory Hoang : [id number] MR#: [id number] Case Date: 08/09/2017 Surgeon: Surgeon(s) and Role: [...] 2.5x80 5. Completion RLE angiogram 6. L MAINS[place]ING FORMER BRACE END angiogram 7. Mynx closure Precautions/Restrictions: fall, sternal [...] feet/ bed -> bathroom). Anticipated Discharge Disposition: residential facility, other (see comments) (or swing bed) Pager: [phone] BASSAM ELIAS, PT 08/14/2017 Inpatient Physical Therapy [...] to Achieve by discharge Gait Training Goal, Hardy Level conditional independence;set up required Gait Training [...] these facilities over the weekend except for [facility]. CM spoke with [facility] CM Drea Sandhu, VAMSI who said that they do not anticipate any beds over the weekend. Reviewed with patient/ that they need to be aware that patient will need to take the first bed offered at the facilities that they make referrals to. Their choices are: 1- [facility] PHONE: [phone] FAX: [phone] 2- [facility] ([facility]) [address] [place] [address] 3- [facility]) [address] [place] [address] I have discussed Medicare/Private Insurance [...] RS/CM on Wednesday to follow-up. Covering pager #[phone] for today. Plan of Care - Henrique [...] with additional findings of pseudoaneurysm on R MAINSPRING FORMER BRACE END and bilateral anterior tibial artery occlusions. Was [...] an outpatient once discharged. Have patient call [phone] to set up an appointment. Follow-up: Dermatology will sign-off for now. Please do not hesitate to contact us if you have any questions orconcerns. Impression and Recommendations discussed with primary team on 08/13/2017. Karo Henderson MD Resident in Dermatology Section of Dermatology, Department of Surgery [facility] Pager [phone] Patient seen and evaluated with staff Information Analyst: Halima Cordero MD Section of Dermatology [facility] [...] Outcome: Ongoing (Interventions Implemented as Appropriate) 08/12/17 7796 Coping/Psychosocial Plan Of Care Reviewed With patient;spouse [...] 2.5x80 5. Completion RLE angiogram 6. L [place]INS[employer] FORMER BRACE END angiogram 7. Mynx closure Active Non-Hospital Problems [...] of abdominal wall ??? Urinary retention ??? AMRIA VICTORIA (obstructive sleep apnea) on CPAP ??? [...] home with home health ([facility] PT[facility]OT) Pager: [phone] YASIR TELLO OT 08/12/2017 Occupational Therapy Rehabilitation [...] 2.5x80 5. Completion RLE angiogram 6. L MAINS[employer] FORMER BRACE END angiogram 7. Mynx closure Past Medical History: [...] with 24/7 assistance and maximal services) Pager: [phone] NICHOLAS MORA, PT 08/12/2017 Physical Therapy Rehabilitation [...] sit/sit to supine -- Bed Mobility Goal, Hardy Level independent -- Bed Mobility Goal, Outcome Achieved -- goal ongoing Goal: Gait Training Goal Stand Alone Therapy Goal Outcome: Ongoing (Interventions Implemented as Appropriate) 08/11/17 1310 08/12/17 1510 Gait Training Goal Gait Training Goal, Date Established 08/11/17 -- Gait Training Goal, Time to Achieve 5 - 7 days -- Gait Training Goal, Hardy Level conditional independence -- Gait Training Goal, [...] days -- Transfer Training Goal, Activity Type bdg-sz-sakme/owuba-yp-fco -- Transfer Train Goal, Hardy Level conditional independence -- Transfer Training Goal, [...] MD - 08/11/2017 2:52 PM EST [facility] Operative Note Patient Name: Gregory Hoang : [id number] MR#: [id number] Case Date: 08/11/2017 Surgeon: Surgeon(s) and Role: [...] 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 Completion RLE angiogram 6. L [employer]INS[employer] FORMER BRACE END angiogram 7. Mynx closure He is very [...] Anticipated Discharge Disposition: inpatient rehabilitation facility Pager: [phone] LAWRENCE GONZALEZ, PT 08/11/2017 Physical Therapy Rehabilitation [...] to sit/sit to supine Bed Mobility Goal, Hardy Level independent Goal: Gait Training Goal Stand Alone Therapy Goal Outcome: Ongoing (Interventions Implemented as Appropriate) 08/11/17 1310 Gait Training Goal Gait Training Goal, Date Established 08/11/17 Gait Training Goal, Time to Achieve 5 - 7 days Gait Training Goal, Hardy Level conditional independence Gait Training Goal, Assist [...] 7 days Transfer Training Goal, Activity Type dhl-rc-nvvsf/xlche-um-orn Transfer Train Goal, Hardy Level conditional independence Plan of David DelloAnnetta [...] call cabello within reach, Hourly rounding by RN/YARN DYER. Bed alarm / Chair alarm. ? Patient-specific [...] Within the Past 30 Days: [facility] [place]/20/2017 Anticipated Length Of Stay (If known): Expected Length of Hospitalization: 5-7 days2-3 days Current Decision-Making Capacity: Alert and oriented x 4 Advance Care Planning: on file Kisha Hoang [facility] [phone] Current Coping/Education/Information Needs: pt and spouse state [...] Health/Prescription Coverage: Primary Insurance: MEDICARE Secondary Insurance: [employer] [place] Prescription Coverage: See above Preferred Pharmacy: [facility] Other: N/A Primary Care Provider: Loevly Vicente MD [phone] Patient/Caregiver Goals of Treatment: Patient plans to return home when medically ready Potential Needs for Transition of Care: Rehab/SNF: N/A Home Health: [facility]. DME: pt has a [...] of care planning. Kaitlin Saha RN Pager: [phone] Plan of Care - Melba Jaramillo RN [...] call cabello within reach, Hourly rounding by RN/YARN DYER. Bed alarm / Chair alarm. Patient-specific fall prevention interventions for sensory deficits provided, if applicable: [X] Yes CPG GOAL OUTCOME EVALUATION: Goal: Fall Prevention-Safe Patient Handling Outcome: Ongoing (Interventions Implemented as Appropriate) 08/06/17 1700 08/06/17199908/07/17 9684 Positioning Body Position -- up in chair [...] hrs [ X ] Daily Comments: VAMSI GNOZALEZ present at bedside and MD TEAM Carrying pager [phone] contacted (via Radio page) and notified of [...] Nobles MD [facility] ER [address] [place], [place] [address] (Wo rk) 06/10/2022 Office Visit Dermatology Laura Scherer MD [facility] [address] [place], [place] [address] (Wo rk) documented [...] section. TYPE AND SCREEN Routine 08/09/2017 1:10 ([facility]SHANDA) AM EST BASIC METABOLIC PANEL Routine 08/09/2017 [...] Signature POC Glucose 160 65 - 199 [facility] mg/dL [facility] Comment: [...] Organization Address City/State/ZIP Code Phon e [place] [facility] [place] [address] (ABNORMAL) Differential, Automated (08/16/2017 5:08 AM EST) Patholo gist Method Time Signature Neutrophils % 73.9 % [facility] Neutr Abs (ANC) 5.37 1.70 - [facility] 6.10 [facility] x10(3)/[facility] LABORATORY Lymphocytes % 10.1 % [facility] Lymphocytes Abs 0.7 (L) 0.9 - 3.2 [facility] x10(3)/[facility] LABORATORY Monocytes % 10.1 % [facility] Monocyte Abs 0.7 0.3 - 0.9 [facility] x10(3)/[facility] LABORATORY Eosinophils % 5.1 % [facility] Eosinophils Abs 0.4 0.0 - 0.4 [facility] x10(3)/[facility] LABORATORY Basophils % 0.4 % [facility] Basophils Abs 0.0 0.0 - 0.1 [facility] x10(3)/[facility] LABORATORY Immature Gran % [...] Melisa Gran Abs 0.03 0.00 - 0.04 x10(3)/[facility] Specimen Anatomical Collection Method Collection Time Receive d Time (Source) Location / / Volume Laterality Blood specimen 08/16/2017 5:08 AM 018 5:20 (specimen) EST AM EST Resulting Agency Comment Spec In Lab Yonathan Smith MD HEMATOLOGY ORDERABLES Performing Organization Address City/State/[place]IP [place] [address] (ABNORMAL) Hemogram (08/16/2017 5:08 AM EST) Analysis Performed At Patho logist Time Signature WBC 7.3 4.0 - 9.5 [facility] x10(3)/[facility] LABORATORY RBC 3.36 (L) 4.58 - [facility] 5.54 [facility] x10(6)/[facility] LABORATORY Hemoglobin 9.7 (L) 13.7 - [facility] 16.5 gm/dL [facility] Hematocrit 30.3 (L) 40.5 - [facility] 48.5 % [facility] MCV 90.2 82.9 - BARBARA OLIVASCK 93.1 [facility] LABORATORY MCH 28.9 27.5 - BARBARA OLIVASCK 32.1 pg [facility] MCHC 32.0 32.0 - BARBARA DAVIS 35.7 gm/dL [facility] Platelets 282 145 - 357 [facility] x10(3)/[facility] LABORATORY RDWSD 53.9 (H) 36.0 - BARBARA OLIVASCK 45.0 [facility] LABORATORY RDWCV 16.5 (H) 11.4 - BARBARA RYAN 13.8 % [facility] MPV 9.0 7.6 - 12.9 [facility] LABORATORY nRBC % Auto 0.0 % [facility] nRBC Abs Auto 0.000 0.000 - BARBARA ZHAORYAN 0.000 [facility] x10(3)/[facility] LABORATORY Specimen Anatomical Collection Method Collection Time Receive d Time (Source) Location / / Volume Laterality Blood specimen 08/16/2017 5:08 AM 018 5:20 (specimen) EST AM EST Resulting Agency Comment Spec In Lab Yonathan Smith MD HEMATOLOGY ORDERABLES Performing Organization Address City/State/[place] [address] [address] (ABNORMAL) Basic Metabolic Panel (non-fasting) (08/16/2017 5:08 AM EST) P athologist Signature Glucose Lvl 141 65 - 199 [facility] mg/dL [facility]OR[facility] Comment: Diabetes: >=200 mg/dL plus symp toms BUN 29 (H) 10 - 20 mg/dL [facility] LABORATORY Creatinine 1.25 0.80 - 1.50 [...] mmol/L [facility] LABORATORY Calcium 8.7 8.5 - 10.5 mg/dL [facility] LABORATORY Estimated GFR 57 (L) >=60 [facility] LABOR[facility] Comment: The reported eGFR should be multiplied b y 1.2 for patients. The MDRD is not an appropriate measure o f renal function for patients with body mass extremes or in patients with acute kidney failure. [email or web address] [email or web address] Specimen Anatomical Collection Method Collection Time Receive d Time (Source) Location / / Volume Laterality Blood specimen 08/16/2017 5:08 AM 018 5:20 (specimen) EST AM EST Resulting Agency Comment Spec In Lab Yonathan Smith MD CHEMISTRY ORDERABLES Performing Organization Address City/State/[facility] [place] [address] (ABNORMAL) Prothrombin Time (08/16/2017 [...] Organization Address City/State/ZIP Code Phon e Number [address] POCT Glucose (08/16/2017 4:09 AM EST) athologist Signature POC Glucose 147 65 - 199 [place] mg/dL [facility] Comment: [...] [facility]/ZIP Code Phon e Number [address] POCT Glucose (08/15/2017 11:56 PM EST) athologist Signature POC Glucose 176 65 - 199 [place] mg/dL [facility] Comment: [...] Organization Address City/State/ZIP Code Phon e Number [place], [place] [id number] [place] [address] POCT Glucose (08/15/2017 8:05 PM EST) athologist Signature POC Glucose 136 65 - 199 [place] mg/dL [facility] Comment: [...] Address City/State/ZIP [place] [address] (ABNORMAL) POCT Glucose (08/15/2017 4:50 PM EST) athologist Signature POC Glucose 232 (H) 65 - 199 [place] mg/dL [facility] Comment: [...] Organization Address City/State/ZIP Code Phon e Number [address] POCT Glucose (08/15/2017 12:04 PM EST) athologist Signature POC Glucose 135 65 - 199 [facility] Comment: [...] Organization Address City/State/[place] [address] POCT Glucose (08/15/2017 7:36 AM EST) athologist Signature POC Glucose 124 65 - 199 [place] mg/dL [facility] Comment: [...] Organization Address City/State/[place] [address] (ABNORMAL) Differential, Automated (08/15/2017 6:22 AM EST) Patholo gist Method Time Signature Neutrophils % 76.1 % [facility] LABORATORY Neutr Abs (ANC) 6.62 (H) 1.70 - [facility] 6.10 [facility] x10(3)/[facility] LABORATORY Lymphocytes % 9.3 % [facility] LABORATORY Lymphocytes Abs 0.8 (L) 0.9 - 3.2 [facility] x10(3)/[facility] LABORATORY Monocytes % 9.4 % [facility] LABORATORY Monocyte Abs 0.8 0.3 - 0.9 [facility] x10(3)/[facility] LABORATORY Eosinophils % 4.0 % [facility] LABORATORY Eosinophils Abs 0.4 0.0 - 0.4 [facility] x10(3)/[facility] LABORATORY Basophils % 0.6 % [facility] LABORATORY Basophils Abs 0.0 0.0 - 0.1 [facility] x10(3)/[facility] LABORATORY Immature Gran % 0.60 % [...] Gran Abs 0.05 (H) 0.00 - 0.04 x10(3)/[facility] LABORATORY Specimen Anatomical Collection Method Collection Time Receive d Time (Source) Location / / Volume Laterality Blood specimen 08/15/2017 6:22 AM 018 6:33 (specimen) EST AM EST Resulting Agency Comment Spec In Lab Yonathan Smith MD HEMATOLOGY ORDERABLES Performing Organization Address City/State/ZIP Code Phon e Number [address] (ABNORMAL) Hemogram (08/15/2017 6:22 AM EST) Analysis Performed At Patho logist Time Signature WBC 8.7 4.0 - 9.5 [facility] x10(3)/[facility] LABORATORY RBC 3.21 (L) 4.58 - [place] 5.54 [facility] x10(6)/[facility] LABORATORY Hemoglobin 9.1 (L) 13.7 - [facility] 16.5 gm/dL [facility] Hematocrit 29.0 (L) 40.5 - [place] 48.5 % [facility] LAB[facility]ATORY MCV 90.3 82.9 - [facility] 93.1 [facility] LABORATORY MCH 28.3 27.5 - [facility] 32.1 pg [facility] LAB[facility]ATORY MCHC 31.4 (L) 32.0 - [place] 35.7 gm/dL [facility] Platelets 254 145 - 357 [facility] x10(3)/[facility] LABORATORY RDWSD 53.9 (H) 36.0 - [facility] 45.0 [facility] LABORATORY RDWCV 16.3 (H) 11.4 - [facility] 13.8 % [facility] LABORATORY MPV 8.8 7.6 - 12.9 [facility] LABORATORY nRBC % Auto 0.0 % [facility] LABORATORY nRBC Abs Auto 0.000 0.000 - [facility] 0.000 [facility] x10(3)/[facility] LABORATORY Specimen Anatomical Collection Method Collection Time Receive d Time (Source) Location / / Volume Laterality Blood specimen 08/15/2017 6:22 AM 018 6:33 (specimen) EST AM EST Resulting Agency Comment Spec In Lab Yonathan Smith MD HEMATOLOGY ORDERABLES Performing Organization Address City/State/ZIP [place] [address] (ABNORMAL) Basic Metabolic Panel (non-fasting) (08/15/2017 6:22 AM EST) P athologist Signature Glucose Lvl 118 65 - 199 [facility] mg/dL [facility] Comment: Diabetes: >=200 mg/dL plus symp toms BUN 27 (H) 10 - 20 mg/dL [facility] LABORATORY Creatinine 1.12 0.80 - 1.50 [...] [facility] Estimated GFR >60 >=60 [facility] Comment: The reported eGFR should be multiplied b y 1.2 for patients. The MDRD is not an appropriate measure o f renal function for patients with body mass extremes or in patients with acute kidney failure. [email or web address] [email or web address] Specimen Anatomical Collection Method Collection Time Receive d Time (Source) Location / / Volume Laterality Blood specimen 08/15/2017 6:22 AM 018 6:33 (specimen) EST AM EST Resulting Agency Comment Spec In Lab Yonathan Smith MD CHEMISTRY ORDERABLES Performing Organization Address City/State/ZIP [place] [address] (ABNORMAL) Prothrombin Time (08/15/2017 [...] Organization Address City/State/ZIP Code Phon e Number [address] POCT Glucose (08/15/2017 4:33 AM EST) athologist Signature POC Glucose 164 65 - 199 [place] mg/dL [facility] Comment: [...] [facility]/ZIP Code Phon e Number [address] POCT Glucose (08/15/2017 12:12 AM EST) athologist Signature POC Glucose 89 65 - 199 [place] mg/dL [facility] Comment: [...] [facility]/ZIP Code Phon e Number [address] (ABNORMAL) POCT Glucose (08/14/2017 8:07 PM EST) athologist Signature POC Glucose 204 (H) 65 - 199 [place] mg/dL [facility] Comment: [...] Organization Address City/State/ZIP Code Phon e Number [address] POCT Glucose (08/14/2017 5:11 PM EST) athologist Signature POC Glucose 174 65 - 199 [place] mg/dL [facility] Comment: [...] Organization Address City/State/ZIP Code Phon e Number [address] POCT Glucose (08/14/2017 12:10 PM EST) athologist Signature POC Glucose 141 65 - 199 [place] mg/dL [facility] Comment: [...] Organization Address City/State/ZIP Code Phon e Number [address] POCT Glucose (08/14/2017 8:07 AM EST) athologist Signature POC Glucose 158 65 - 199 [place] mg/dL [facility] Comment: [...] Organization Address City/State/ZIP [place] [address] (ABNORMAL) Differential, Automated (08/14/2017 4:52 AM EST) [facility] Method Time Signature Neutrophils % 78.6 % [facility] LABORATORY Neutr Abs (ANC) 7.70 (H) 1.70 - [facility] 6.10 [facility] x10(3)/[facility] L LABORATORY Lymphocytes % 7.8 % [facility] LABORATORY Lymphocytes Abs 0.8 (L) 0.9 - 3.2 [facility] x10(3)/[facility] LABORATORY Monocytes % 8.8 % [facility] LABORATORY Monocyte Abs 0.9 0.3 - 0.9 [facility] x10(3)/[facility] LABORATORY Eosinophils % 4.0 % [facility] LABORATORY Eosinophils Abs 0.4 0.0 - 0.4 [facility] x10(3)/[facility] LABORATORY Basophils % 0.5 % [facility] LABORATORY Basophils Abs 0.0 0.0 - 0.1 [facility] x10(3)/[facility] LABORATORY Immature Gran % 0.30 % [...] 0.03 0.00 - 0.04 x10(3)/[facility] LABORATORY Specimen Anatomical Collection Method Collection Time Receive d Time (Source) Location / / Volume Laterality Blood specimen 08/14/2017 4:52 AM 018 5:08 (specimen) EST AM EST Resulting Agency Comment Spec In Lab Yonathan Smith MD HEMATOLOGY ORDERABLES Performing Organization Address City/State/ZIP Code Phon e Number [address] (ABNORMAL) Hemogram (08/14/2017 4:52 AM EST) Analysis Performed At Patho logist Time Signature WBC 9.8 (H) 4.0 - 9.5 [facility] x[facility](3[facility] LABORATORY RBC 3.32 (L) 4.58 - [place] 5.54 [facility] x10(6)/[facility] LABORATORY Hemoglobin 9.5 (L) 13.7 - [facility] 16.5 gm/dL [facility]ORY Hematocrit 30.3 (L) 40.5 - [facility] 48.5 % [facility] LAB[facility]ATORY MCV 91.3 82.9 - [facility] 93.1 [facility] LABORATORY MCH 28.6 27.5 - [facility] 32.1 pg [facility] LAB[facility]ATORY MCHC 31.4 (L) 32.0 - [facility] 35.7 gm/dL [facility] Platelets 263 145 - 357 [facility] x10(3)/[facility] LABORATORY RDWSD 54.8 (H) 36.0 - [facility] 45.0 [facility] LABORATORY RDWCV 16.5 (H) 11.4 - [facility] 13.8 % [facility] LABORATORY MPV 9.1 7.6 - 12.9 [facility] nRBC % Auto 0.0 % [facility] LABORATORY nRBC Abs Auto 0.000 0.000 - [place] 0.000 [facility] x10(3)/[facility] LABORATORY Specimen Anatomical Collection Method Collection Time Receive d Time (Source) Location / / Volume Laterality Blood specimen 08/14/2017 4:52 AM 018 5:08 (specimen) EST AM EST Resulting Agency Comment Spec In Lab Yonathan Smith MD HEMATOLOGY ORDERABLES Performing Organization Address City/State/[place] [address] (ABNORMAL) Prothrombin Time (08/14/2017 [...] Organization Address City/State/[place] [address] (ABNORMAL) Basic Metabolic Panel (non-fasting) (08/14/2017 4:52 AM EST) athologist Signature Glucose Lvl 135 65 - 199 [facility] mg/dL [facility] Comment: Diabetes: >=200 mg/dL plus symp toms BUN 25 (H) 10 - 20 mg/dL [facility] LABORATORY Creatinine 1.36 0.80 - 1.50 [...] HOSPITAL LABORATORY Estimated GFR 52 (L) >=60 [facility] LAB[facility] Comment: The reported eGFR should be multiplied b y 1.2 for patients. The MDRD is not an appropriate measure o f renal function for patients with body mass extremes or in patients with acute kidney failure. http://[email or web address] [email or web address] Specimen Anatomical Collection Method Collection Time Receive d Time (Source) Location / / Volume Laterality Blood specimen 08/14/2017 4:52 AM 018 5:08 (specimen) EST AM EST Resulting Agency Comment Spec In Lab Yonathan Smith MD CHEMISTRY ORDERABLES Performing Organization Address City/[facility]/ZIP [facility] Phon e Number [address] POCT Glucose (08/14/2017 3:56 AM EST) P athologist Signature POC Glucose 135 65 - 199 [facility]dL [facility] Comment: [...] [facility]/ZIP Code Phon e Number [address] POCT Glucose (08/13/2017 11:13 PM EST) athologist Signature POC Glucose 118 65 - 199 [facility]dL [facility] Comment: [...] Organization Address City/State/[place] [address] (ABNORMAL) POCT Glucose (08/13/2017 8:08 PM EST) athologist Signature POC Glucose 204 (H) 65 - 199 [place] mg/dL [facility] Comment: [...] [facility]/[place] [address] POCT Glucose (08/13/2017 4:02 PM EST) athologist Signature POC Glucose 145 65 - 199 [place] mg/dL [facility] Comment: [...] Organization Address City/State/[place] [address] POCT Glucose (08/13/2017 11:31 AM EST) athologist Signature POC Glucose 179 65 - 199 [place] mg/dL [facility] Comment: [...] Organization Address City/State/[place] [address] (ABNORMAL) POCT Glucose (08/13/2017 10:16 AM EST) P athologist Signature POC Glucose 211 (H) 65 - 199 [place] mg/dL [facility] Comment: [...] Organization Address City/State/[place] [address] JULIAN, legs, multiple levels (08/13/2017 7:42 AM EST) Component Value Ref Test Analysis Performed At Patholo gist Range Method Time Signature VB Text Department: Vascular Surgery Lab VASCUBASE Report Patient: [id number] (GREGORY HOANG) CPT: 18987 ICD10: I99.8 Referring Physician: YONATAHN SMITH ?? Indications: s/p R 1,2,3 toe amps with red left foot, need n ew baseline Diabetes mellitus: yes ICD10 Diagnosis Code: I99.8 Findings: Right ?Pressure (mm Hg) ?? JULIAN ??Waveform ?TBI ?? Brachial Artery ?138 ? Dorsalis Pedis (Ankle) Arter y ?132 ? 0.94 ??Cass- Biphasic ? Posterior Tibial (Ankle) Art anila ??154 ? 1.10 ??Cass-Biphasic ? Fourth Toe ? 67 ? 0.48 [...] Signature POC Glucose 156 65 - 199 [facility] mg/dL [facility] LAB[facility]ORY Comment: [...] Organization Address City/State/Z[place] [address] (ABNORMAL) Differential, Automated (08/13/2017 5:33 AM EST) Patholo gist Method Time Signature Neutrophils % 77.8 % [facility] LABORATORY Neutr Abs (ANC) 7.83 (H) 1.70 - [facility] 6.10 [facility] x10(3)/[facility] L LABORATORY Lymphocytes % 8.4 % [facility] LABORATORY Lymphocytes Abs 0.8 (L) 0.9 - 3.2 [facility] x10(3)/[facility] LABORATORY Monocytes % 8.3 % [facility] LABORATORY Monocyte Abs 0.8 0.3 - 0.9 [facility] x10(3)/[facility] LABORATORY Eosinophils % 4.6 % [facility] LABORATORY Eosinophils Abs 0.5 (H) 0.0 - 0.4 [facility] x10(3)/[facility] LABORATORY Basophils % 0.5 % [facility] LABORATORY Basophils Abs 0.0 0.0 - 0.1 [facility] x10(3)/[facility] LABORATORY Immature Gran % 0.40 % [...] Melisa Gran Abs 0.04 0.00 - 0.04 x10(3)/[facility] LABORATORY Specimen Anatomical Collection Method Collection Time Receive d Time (Source) Location / / Volume Laterality Blood specimen 08/13/2017 5:33 AM 018 6:04 (specimen) EST AM EST Resulting Agency Comment Spec In Lab Yonathan Smith MD HEMATOLOGY ORDERABLES Performing Organization Address City/State/ZIP [place] [address] (ABNORMAL) Hemogram (08/13/2017 5:33 AM EST) Analysis Performed At Patho logist Time Signature WBC 10.1 (H) 4.0 - 9.5 [facility] x10(3)/[facility] LABORATORY RBC 3.21 (L) 4.58 - [facility] 5.54 [facility] x10(6)/[facility] LABORATORY Hemoglobin 9.2 (L) 13.7 - [facility] 16.5 gm/dL [facility] LABORATORY Hematocrit 29.6 (L) 40.5 - [facility] 48.5 % [facility] LABORATORY MCV 92.2 82.9 - [facility] 93.1 [facility] LABORATORY MCH 28.7 27.5 - [facility] 32.1 pg [facility] LABORATORY MCHC 31.1 (L) 32.0 - [place] [facility] 35.7 gm/dL [facility] LABORATORY Platelets 263 145 - 357 [facility] x10(3)/[facility] LABORATORY RDWSD 54.8 (H) 36.0 - [place] 45.0 [facility] LABORATORY RDWCV 16.4 (H) 11.4 - [facility] RYAN 13.8 % [facility] LABORATORY MPV 9.2 7.6 - 12.9 [facility] LABORATORY nRBC % Auto 0.0 % [facility] LABORATORY nRBC Abs Auto 0.000 0.000 - [place] 0.000 [facility] x10(3)/[facility] LABORATORY Specimen Anatomical Collection Method Collection Time Receive d Time (Source) Location / / Volume Laterality Blood specimen 08/13/2017 5:33 AM 018 6:04 (specimen) EST AM EST Resulting Agency Comment Spec In Lab Yonathan Smith MD HEMATOLOGY ORDERABLES Performing Organization Address City/State/ZIP Code Phon e Number [place] [id number] (ABNORMAL) Prothrombin Time (08/13/2017 [...] Smith MD HEMATOLOGY ORDERABLES Performing Organization Address City/[facility]/ZIP [place] [address] (ABNORMAL) Basic Metabolic Panel (non-fasting) (08/13/2017 5:33 AM EST) P athologist Signature Glucose Lvl 126 65 - 199 [facility] mg/dL [facility] LAB[facility] Comment: Diabetes: >=200 mg/dL plus symp toms BUN 18 10 - 20 mg/dL [facility] LABORATORY Creatinine 1.16 0.80 - 1.50 [...] mmol/L [facility] LABORATORY Calcium 7.9 (L) 8.5 - 10.5 mg/dL [facility] LABORATORY Estimated GFR >60 >=60 [facility] LABORATORY Comment: The reported eGFR should be multiplied b y 1.2 for patients. The MDRD is not an appropriate measure o f renal function for patients with body mass extremes or in patients with acute kidney failure. [email or web address] [email or web address] Specimen Anatomical Collection Method Collection Time Receive d Time (Source) Location / / Volume Laterality Blood specimen 08/13/2017 5:33 AM 018 6:04 (specimen) EST AM EST Resulting Agency Comment Spec In Lab Yonathan Smith MD CHEMISTRY ORDERABLES Performing Organization Address City/State/[place] [address] POCT Glucose (08/13/2017 4:29 AM EST) athologist Signature POC Glucose 111 65 - 199 [facility] mg/dL [facility] LAB[facility] Comment: [...] [facility]/ZIP Code Phon e Number [address] POCT Glucose (08/12/2017 11:28 PM EST) athologist Signature POC Glucose 164 65 - 199 [facility] [facility] mg/dL [facility] LABORATORY Comment: [...] Organization Address City/State/[place] [address] (ABNORMAL) POCT Glucose (08/12/2017 7:40 PM EST) athologist Signature POC Glucose 209 (H) 65 - 199 [place] mg/dL [facility] LABORATORY Comment: [...] Organization Address City/State/[place] [address] POCT Glucose (08/12/2017 4:24 PM EST) athologist Signature POC Glucose 161 65 - 199 [place] mg/dL [facility] LABORATORY Comment: [...] Organization Address City/State/ZIP Code Phon e Number [address] POCT Glucose (08/12/2017 12:00 PM EST) athologist Signature POC Glucose 167 65 - 199 [facility] RYAN mg/dL [facility] LABORATORY Comment: [...] Organization Address City/State/[place] [address] POCT Glucose (08/12/2017 7:25 AM EST) athologist Signature POC Glucose 152 65 - 199 [place] [facility] mg/dL [facility] LABORATORY Comment: [...] Organization Address City/State/[place] [address] (ABNORMAL) Differential, Automated (08/12/2017 6:29 AM EST) Patholo gist Method Time Signature Neutrophils % 78.7 % [facility] LABORATORY Neutr Abs (ANC) 7.94 (H) 1.70 - [facility] 6.10 [facility] x10(3)/[facility] LABORATORY Lymphocytes % 8.8 % [facility] LABORATORY Lymphocytes Abs 0.9 0.9 - 3.2 [facility] x10(3)/[facility] LABORATORY Monocytes % 7.8 % [facility] LABORATORY Monocyte Abs 0.8 0.3 - 0.9 [facility] x10(3)/[facility] LABORATORY Eosinophils % 3.9 % [facility] LABORATORY Eosinophils Abs 0.4 0.0 - 0.4 [facility] x10(3)/[facility] LABORATORY Basophils % 0.3 % [facility] LABORATORY Basophils Abs 0.0 0.0 - 0.1 [facility] x10(3)/[facility] LABORATORY Immature Gran % 0.50 % [...] Gran Abs 0.05 (H) 0.00 - 0.04 x10(3)/[facility] LABORATORY Specimen Anatomical Collection Method Collection Time Receive d Time (Source) Location / / Volume Laterality Blood specimen 08/12/2017 6:29 AM 018 6:38 (specimen) EST AM EST Resulting Agency Comment Spec In Lab Yonathan Smith MD HEMATOLOGY ORDERABLES Performing Organization Address City/State/Z[place] [address] (ABNORMAL) Hemogram (08/12/2017 6:29 AM EST) Analysis Performed At Patho logist Time Signature WBC 10.1 (H) 4.0 - 9.5 [facility] x10(3)/[facility] LABORATORY RBC 3.02 (L) 4.58 - [facility] RYAN 5.54 [facility] x10(6)/[facility] LABORATORY Hemoglobin 8.7 (L) 13.7 - [facility] 16.[facility] gm/dL [facility] LABORATORY Hematocrit 28.1 (L) 40.5 - [facility] 48.5 % [facility] LABORATORY MCV 93.0 82.9 - [facility] 93.1 [facility] LABORATORY MCH 28.8 27.5 - [facility] 32.1 pg [facility] MCHC 31.0 (L) 32.0 - [facility] 35.7 gm/dL [facility] Platelets 223 145 - 357 [facility] x10(3)/[facility] LABORATORY RDWSD 56.1 (H) 36.0 - [facility] 45.0 [facility] LABORATORY RDWCV 16.4 (H) 11.4 - [facility] 13.8 % [facility] MPV 9.0 7.6 - 12.9 [facility] LABORATORY nRBC % Auto 0.0 % [facility] nRBC Abs Auto 0.000 0.000 - [facility] 0.000 [facility] x10(3)/[facility] LABORATORY Specimen Anatomical Collection Method Collection Time Receive d Time (Source) Location / / Volume Laterality Blood specimen 08/12/2017 6:29 AM 018 6:38 (specimen) EST AM EST Resulting Agency Comment Spec In Lab Yonathan Smith MD HEMATOLOGY ORDERABLES Performing Organization Address City/State/[place] [address] (ABNORMAL) Prothrombin Time (08/12/2017 [...] Organization Address City/State/[place] [address] (ABNORMAL) Basic Metabolic Panel (non-fasting) (08/12/2017 6:29 AM EST) P athologist Signature Glucose Lvl 151 65 - 199 [facility] mg/dL [facility] Comment: Diabetes: >=200 mg/dL plus symp toms BUN 18 10 - 20 mg/dL [facility] Creatinine 1.11 0.80 - 1.50 [...] mmol/L [facility] Calcium 7.9 (L) 8.5 - 10.5 mg/dL [facility] Estimated GFR >60 >=60 [facility] Comment: The reported eGFR should be multiplied b y 1.2 for patients. The MDRD is not an appropriate measure o f renal function for patients with body mass extremes or in patients with acute kidney failure. [email or web address] [email or web address] Specimen Anatomical Collection Method Collection Time Receive d Time (Source) Location / / Volume Laterality Blood specimen 08/12/2017 6:29 AM 018 6:38 (specimen) EST AM EST Resulting Agency Comment Spec In Lab Yonathan Smith MD CHEMISTRY ORDERABLES Performing Organization Address City/State/ZIP Code Phon e Number [address] POCT Glucose (08/12/2017 4:08 AM EST) athologist Signature POC Glucose 181 65 - 199 [facility]/dL [facility] Comment: [...] [facility]/[place] [address] (ABNORMAL) POCT Glucose (08/12/2017 12:17 AM EST) athologist Signature POC Glucose 221 (H) 65 - 199 [facility] mg/dL [facility] Comment: [...] [facility]/ZIP Code Phon e Number [address] (ABNORMAL) POCT Glucose (08/11/2017 8:52 PM EST) athologist Signature POC Glucose 221 (H) 65 - 199 [place] mg/dL [facility] Comment: [...] Organization Address City/State/[place] [address] POCT Glucose (08/11/2017 5:59 PM EST) athologist Signature POC Glucose 169 65 - 199 [facility] mg/dL [facility] Comment: [...] Organization Address City/State/[place] [address] (ABNORMAL) POCT Glucose (08/11/2017 4:08 PM EST) athologist Signature POC Glucose 240 (H) 65 - 199 [place] mg/dL [facility] Comment: [...] Organization Address City/State/ZIP Code Phon e Number [address] POCT Glucose (08/11/2017 12:04 PM EST) athologist Signature POC Glucose 182 65 - 199 [place] mg/dL [facility] Comment: [...] Organization Address City/State/ZIP Code Phon e Number [address] POCT Glucose (08/11/2017 7:31 AM EST) P athologist Signature POC Glucose 156 65 - 199 [facility] mg/dL [facility] Comment: [...] Organization Address City/State/[place] [address] (ABNORMAL) Differential, Automated (08/11/2017 6:16 AM EST) Patholo gist Method Time Signature Neutrophils % 83.7 % [facility] Neutr Abs (ANC) 10.76 (H) 1.70 - [facility] 6.10 [facility] x10(3)/[facility] L LABORATORY Lymphocytes % 6.0 % [facility] Lymphocytes Abs 0.8 (L) 0.9 - 3.2 [facility] x10(3)/[facility] LABORATORY Monocytes % 7.5 % [facility] Monocyte Abs 1.0 (H) 0.3 - 0.9 [facility] x10(3)/[facility] LABORATORY Eosinophils % 2.0 % [facility] Eosinophils Abs 0.3 0.0 - 0.4 [facility] x10(3)/[facility] LABORATORY Basophils % 0.3 % [facility] Basophils Abs 0.0 0.0 - 0.1 [facility] x10(3)/[facility] LABORATORY Immature Gran % 0.50 % [...] Gran Abs 0.06 (H) 0.00 - 0.04 x10(3)/[facility] LABORATORY Specimen Anatomical Collection Method Collection Time Receive d Time (Source) Location / / Volume Laterality Blood specimen 08/11/2017 6:16 AM 018 6:24 (specimen) EST AM EST Resulting Agency Comment Spec In Lab Yonathan Smith MD HEMATOLOGY ORDERABLES Performing Organization Address City/State/ZIP Code Phon e Number [place] [id number] HOSPITAL LAB[address]ATORY Drive (ABNORMAL) Hemogram (08/11/2017 6:16 AM EST) Analysis Performed At Patho logist Time Signature WBC 12.9 (H) 4.0 - 9.5 [facility] x10(3)/[facility] LABORATORY RBC 3.28 (L) 4.58 - [facility] 5.54 [facility] x10(6)/[facility] LABORATORY Hemoglobin 9.5 (L) 13.7 - [facility] 16.5 gm/dL [facility] Hematocrit 29.8 (L) 40.5 - [facility] 48.5 % [facility] MCV 90.9 82.9 - [facility] 93.1 [facility] LABORATORY MCH 29.0 27.5 - [facility] 32.1 pg [facility] MCHC 31.9 (L) 32.0 - [facility] 35.7 gm/dL [facility] Platelets 236 145 - 357 [facility] x10(3)/[facility] LABORATORY RDWSD 53.5 (H) 36.0 - [facility] 45.0 [facility] LABORATORY RDWCV 16.3 (H) 11.4 - [facility] 13.8 % [facility] MPV 8.8 7.6 - 12.9 [facility] fL [facility] nRBC % Auto 0.0 % [facility] nRBC Abs Auto 0.000 0.000 - [place] [facility] 0.000 [facility] x10(3)/[facility] LABORATORY Specimen Anatomical Collection Method Collection Time Receive d Time (Source) Location / / Volume Laterality Blood specimen 08/11/2017 6:16 AM 018 6:24 (specimen) EST AM EST Resulting Agency Comment Spec In Lab Yonathan Smith MD HEMATOLOGY ORDERABLES Performing Organization Address City/State/ZIP Code Phon e Number [address] (ABNORMAL) Prothrombin Time (08/11/2017 [...] Organization Address City/State/[place] [address] Basic Metabolic Panel (non-fasting) (08/11/2017 6:16 AM EST) P athologist Signature Glucose Lvl 139 65 - 199 [facility] mg/dL [facility] Comment: Diabetes: >=200 mg/dL plus symp toms BUN 12 10 - 20 mg/dL [facility] Creatinine 0.91 0.80 - 1.50 [facility] Estimated GFR >60 >=60 [facility] Comment: The reported eGFR should be multiplied b y 1.2 for patients. The MDRD is not an appropriate measure o f renal function for patients with body mass extremes or in patients with acute kidney failure. [email or web address] [email or web address] Specimen Anatomical Collection Method Collection Time Receive d Time (Source) Location / / Volume Laterality Blood specimen 08/11/2017 6:16 AM 018 6:24 (specimen) EST AM EST Resulting Agency Comment Spec In Lab Yonathan Smith MD CHEMISTRY ORDERABLES Performing Organization Address City/State/ZIP [place] [address] POCT Glucose (08/11/2017 4:07 AM EST) athologist Signature POC Glucose 162 65 - 199 [facility] mg/dL [facility] Comment: [...] Organization Address City/State/ZIP Code Phon e Number [address] POCT Glucose (08/10/2017 11:59 PM EST) athologist Signature POC Glucose 166 65 - 199 [facility] mg/dL [facility] Comment: [...] [facility]/ZIP Code Phon e Number [address] POCT Glucose (08/10/2017 8:12 PM EST) athologist Signature POC Glucose 156 65 - 199 [facility] mg/dL [facility] Comment: [...] Organization Address City/State/[place] [address] (ABNORMAL) POCT Glucose (08/10/2017 4:42 PM EST) athologist Signature POC Glucose 211 (H) 65 - 199 [place] mg/dL [facility] Comment: [...] Organization Address City/State/Z[place] [address] (ABNORMAL) Differential, Automated (08/10/2017 2:30 PM EST) [facility] Method Time Signature Neutrophils % 87.6 % [facility] Neutr Abs (ANC) 9.90 (H) 1.70 - [facility] 6.10 [facility] x10(3)/[facility] L LABORATORY Lymphocytes % 4.3 % [facility] Lymphocytes Abs 0.5 (L) 0.9 - 3.2 [facility] x10(3)/[facility] LABORATORY Monocytes % 6.0 % [facility] Monocyte Abs 0.7 0.3 - 0.9 [facility] x10(3)/[facility] LABORATORY Eosinophils % 1.1 % [facility] Eosinophils Abs 0.1 0.0 - 0.4 [facility] x10(3)/[facility] LABORATORY Basophils % 0.4 % [facility] Basophils Abs 0.0 0.0 - 0.1 [facility] x10(3)/[facility] LABORATORY Immature Gran % 0.60 % [...] Gran Abs 0.07 (H) 0.00 - 0.04 x10(3)/[facility] LABORATORY Specimen Anatomical Collection Method Collection Time Receive d Time (Source) Location / / Volume Laterality Blood specimen 08/10/2017 2:30 PM 018 2:48 (specimen) EST PM EST Resulting Agency Comment Spec In Lab Yonathan Smith MD HEMATOLOGY ORDERABLES Performing Organization Address City/State/ZIP Code [place] [address] (ABNORMAL) Hemogram (08/10/2017 2:30 PM EST) Analysis Performed At Patho logist Time Signature WBC 11.3 (H) 4.0 - 9.5 [facility] x[facility](3[facility] LABORATORY RBC 3.13 (L) 4.58 - [place] [facility] 5.54 [facility] x10(6)/[facility] LABORATORY Hemoglobin 8.9 (L) 13.7 - [facility] 16[facility] gm/dL [facility] Hematocrit 28.4 (L) 40.5 - [facility] 48.5 % [facility] MCV 90.7 82.9 - [facility] 93.1 [facility] LABORATORY MCH 28.4 27.5 - [facility] 32.1 pg [facility] MCHC 31.3 (L) 32.0 - [facility] 35.7 gm/dL [facility] Platelets 213 145 - 357 [facility] x10(3)/[facility] LABORATORY RDWSD 53.7 (H) 36.0 - [facility] 45.0 [facility] LABORATORY RDWCV 16.4 (H) 11.4 - [facility] 13.8 % [facility] MPV 8.9 7.6 - 12.9 [facility] LABORATORY nRBC % Auto 0.0 % [facility] nRBC Abs Auto 0.000 0.000 - [facility] 0.000 [facility] x10(3)/[facility] LABORATORY Specimen Anatomical Collection Method Collection Time Receive d Time (Source) Location / / Volume Laterality Blood specimen 08/10/2017 2:30 PM 018 2:48 (specimen) EST PM EST Resulting Agency Comment Spec In Lab Yonathan Smith MD HEMATOLOGY ORDERABLES Performing Organization Address City/State/Z[place] [address] (ABNORMAL) POCT Glucose (08/10/2017 1:50 PM EST) P athologist Signature POC Glucose 243 (H) 65 - 199 [facility] mg/dL [facility] Comment: [...] Organization Address City/State/[place] [address] POCT Glucose (08/10/2017 11:21 AM EST) P athologist Signature POC Glucose 156 65 - 199 [facility] mg/dL [facility] Comment: [...] Organization Address City/State/[place] [address] (ABNORMAL) Differential, Automated (08/10/2017 10:28 AM EST) Patholo gist Method Time Signature Neutrophils % 85.3 % [facility] Neutr Abs (ANC) 9.43 (H) 1.70 - [facility] 6.10 [facility] x10(3)/[facility] L LABORATORY Lymphocytes % 5.5 % [facility] Lymphocytes Abs 0.6 (L) 0.9 - 3.2 [facility] x10(3)/[facility] LABORATORY Monocytes % 5.9 % [facility] Monocyte Abs 0.6 0.3 - 0.9 [facility] x10(3)/[facility] LABORATORY Eosinophils % 2.1 % [facility] Eosinophils Abs 0.2 0.0 - 0.4 [facility] x10(3)/[facility] LABORATORY Basophils % 0.4 % [facility] Basophils Abs 0.0 0.0 - 0.1 [facility] x10(3)/[facility] LABORATORY Immature Gran % 0.80 % [...] Gran Abs 0.09 (H) 0.00 - 0.04 x10(3)/[facility] LABORATORY Specimen Anatomical Collection Method Collection Time Receive d Time (Source) Location / / Volume Laterality Blood specimen 08/10/2017 10:28 8 (specimen) AM EST 10:35 AM EST Resulting Agency Comment Spec In Lab Yonathan Smith MD HEMATOLOGY ORDERABLES Performing Organization Address City/State/Z[place] [address] (ABNORMAL) Hemogram (08/10/2017 10:28 AM EST) Analysis Performed At Patho logist Time Signature WBC 11.0 (H) 4.0 - 9.5 [facility] x10(3)/[facility] LABORATORY RBC 3.02 (L) 4.58 - [facility] 5.54 [facility] x10(6)/[facility] LABORATORY Hemoglobin 8.8 (L) 13.7 - [facility] 16.5 gm/dL [facility] Hematocrit 28.1 (L) 40.5 - [facility] 48.5 % [facility] MCV 93.0 82.9 - [facility] 93.1 [facility] LABORATORY MCH 29.1 27.5 - [facility] 32.1 pg [facility] MCHC 31.3 (L) 32.0 - [facility] 35.7 gm/dL [facility] Platelets 207 145 - 357 [facility] x10(3)/[facility] LABORATORY RDWSD 55.3 (H) 36.0 - [facility] RYAN 45.0 [facility] LABORATORY RDWCV 16.4 (H) 11.4 - [facility] 13.8 % [facility] MPV 9.0 7.6 - 12.9 [facility] LABORATORY nRBC % Auto 0.0 % [facility] nRBC Abs Auto 0.000 0.000 - [place] [facility] 0.000 [facility] x10(3)/[facility] LABORATORY Specimen Anatomical Collection Method Collection Time Receive d Time (Source) Location / / Volume Laterality Blood specimen 08/10/2017 10:28 8 (specimen) AM EST 10:35 AM EST Resulting Agency Comment Spec In Lab Yonathan Smith MD HEMATOLOGY ORDERABLES Performing Organization Address City/State/ZIP Code Phon e Number [place] [id number] HOSPITAL LABORATORY Drive VS Angiogram/intervention (vascular) (08/10/2017 [...] 2.5x80 5. Completion RLE angiogram 6. L [employer] angiogram 7. 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 L [employer] access in the distal L [employer]. - Closure device: Mynx Technical Procedure: ?The [...] for a 45cm 5F Destination. V18 and [place] a nd QuickCross catheters were used to [...] bifurcation. Access appeared in the distal R [employer]. Closure and sheath removal was performed with [...] 2.5x80 5. Completion RLE angiogram 6. L [employer] angiogram 7. 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 L [employer] access in the distal L [employer]. - Closure device: Mynx Technical Procedure: The [...] for a 45cm 5F Destination. V18 and [place] a nd QuickCross catheters were used to [...] bifurcation. Access appeared in the distal R [employer]. Closure and sheath removal was performed with [...] (ABNORMAL) Differential, Automated (08/10/2017 5:50 AM EST) [facility] Method Time Signature Neutrophils % 80.1 % [facility] Neutr Abs (ANC) 9.01 (H) 1.70 - [facility] 6.10 [facility] x10(3)/[facility] LABORATORY Lymphocytes % 8.8 % [facility] Lymphocytes Abs 1.0 0.9 - 3.2 [facility] x10(3)/[facility] LABORATORY Monocytes % 8.3 % [facility] Monocyte Abs 0.9 0.3 - 0.9 [facility] x10(3)/[facility] LABORATORY Eosinophils % 2.0 % [facility] Eosinophils Abs 0.2 0.0 - 0.4 [facility] x10(3)/[facility] LABORATORY Basophils % 0.4 % [facility] Basophils Abs 0.0 0.0 - 0.1 [facility] x10(3)/[facility] LABORATORY Immature Gran % 0.40 % [...] Gran Abs 0.05 (H) 0.00 - 0.04 x10(3)/[facility] LABORATORY Specimen Anatomical Collection Method Collection Time Receive d Time (Source) Location / / Volume Laterality Blood specimen 08/10/2017 5:50 AM 018 5:59 (specimen) EST AM EST Resulting Agency Comment Spec In Lab Yonathan Smith MD HEMATOLOGY ORDERABLES Performing Organization Address City/State/Z[place] [address] (ABNORMAL) Hemogram (08/10/2017 5:50 AM EST) Analysis Performed At Patho logist Time Signature WBC 11.3 (H) 4.0 - 9.5 [facility] x[facility](3[facility] LABORATORY RBC 3.15 (L) 4.58 - [facility] 5.54 [facility] x10(6)/[facility] LABORATORY Hemoglobin 8.9 (L) 13.7 - [facility] 16.5 gm/dL [facility] Hematocrit 29.0 (L) 40.5 - [facility] 48.5 % [facility] MCV 92.1 82.9 - [facility] 93.1 [facility] LABORATORY MCH 28.3 27.5 - [place] 32.1 pg [facility] MCHC 30.7 (L) 32.0 - [facility] RYAN 35.7 gm/dL [facility] Platelets 231 145 - 357 [facility] x10(3)/[facility] LABORATORY RDWSD 53.9 (H) 36.0 - [facility] RYAN 45.0 [facility] LABORATORY RDWCV 16.2 (H) 11.4 - [facility] RYAN 13.8 % [facility] MPV 8.7 7.6 - 12.9 [facility] nRBC % Auto 0.0 % [facility] nRBC Abs Auto 0.000 0.000 - [facility] RYAN 0.000 [facility] x10(3)/[facility] LABORATORY Specimen Anatomical Collection Method Collection Time Receive d Time (Source) Location / / Volume Laterality Blood specimen 08/10/2017 5:50 AM 018 5:59 (specimen) EST AM EST Resulting Agency Comment Spec In Lab Yonathan Smith MD HEMATOLOGY ORDERABLES Performing Organization Address City/State/Z[place] [address] (ABNORMAL) Basic Metabolic Panel (non-fasting) (08/10/2017 5:50 AM EST) P athologist Signature Glucose Lvl 135 65 - 199 [facility] mg/dL [facility] Comment: Diabetes: >=200 mg/dL plus symp toms BUN 17 10 - 20 mg/dL [facility] Estimated GFR >60 >=60 [facility] Comment: The reported eGFR should be multiplied b y 1.2 for patients. The MDRD is not an appropriate measure o f renal function for patients with body mass extremes or in patients with acute kidney failure. [email or web address] [email or web address] [email or web address] Specimen Anatomical Collection Method Collection Time Receive d Time (Source) Location / / Volume Laterality Blood specimen 08/10/2017 5:50 AM 018 5:59 (specimen) EST AM EST Resulting Agency Comment Spec In Lab Yonathan Smith MD CHEMISTRY ORDERABLES Performing Organization Address City/State/ZIP Code Phon e Number [address] (ABNORMAL) Prothrombin Time (08/10/2017 [...] Organization Address City/State/[place] [address] (ABNORMAL) POCT Glucose (08/10/2017 4:01 AM EST) athologist Signature POC Glucose 206 (H) 65 - 199 [facility] mg/dL [facility] Comment: [...] Organization Address City/State/[place] [address] POCT Glucose (08/10/2017 2:01 AM EST) athologist Signature POC Glucose 188 65 - 199 [facility] mg/dL [facility] Comment: [...] Organization Address City/State/[place] [address] (ABNORMAL) POCT Glucose (08/09/2017 11:42 PM EST) athologist Signature POC Glucose 283 (H) 65 - 199 [facility] mg/dL [facility] Comment: [...] [facility] [address] POCT Glucose (08/09/2017 8:55 PM EST) athologist Signature POC Glucose 182 65 - 199 [facility] mg/dL [facility] Comment: [...] Organization Address City/State/[place] [address] (ABNORMAL) APTT (08/09/2017 6:42 PM EST) athologist Signature PTT 90 (H) 25 - 35 sec [facility] Comment: The recommended therapeutic range for fu ll dose, unfractionated heparin at [facility] is 80 ? 114 seconds. The use [...] Organization Address City/State/ZIP Code Phon e Number [address] POCT Glucose (08/09/2017 4:41 PM EST) athologist Signature POC Glucose 195 65 - 199 [place] R[place] mg/dL [facility] LABORATORY Comment: [...] [facility]/ZIP Code Phon e Number [address] POCT Glucose (08/09/2017 12:29 PM EST) athologist Signature POC Glucose 140 65 - 199 [place] mg/dL [facility] LABORATORY Comment: [...] Organization Address City/State/ZIP Code Phon e Number [address] POCT Glucose (08/09/2017 9:59 AM EST) athologist Signature POC Glucose 135 65 - 199 [place] mg/dL [facility] Comment: [...] [facility]/[place] [address] Specimen to Pathology (08/09/2017 [...] [facility]/[place] [address] Surgical Pathology Report (08/09/2017 8:40 AM EST) Component Value Ref Test Analysis Performed At [facility] gist Range Method Time Signature Surgical [id number] ? Location: [facility]; [facility]; A [facility] Report The signing pathologist has (i) examined the relevant preparation(s) for the [facility] specimen(s) and (ii) rendered or confirmed the diagnosis(es) . HOSPITAL LABORATORY . 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 ?Viable proximal resection margins. Electronically signed by: ??Henrique Saravia MD Verified: ??08/13/2017 ?Pathologist Performed at: ??-[facility] Dept. of Pathology, [place], [place] CLINICAL INFORMATION Specimen Submitted: A - [...] [facility]/[place] [address] Anaerobic Culture (08/09/2017 8:30 AM EST) [facility] gist Method Time Signature Anaerobic No anaerobic [facility] Culture organisms [facility] LABORATORY Specimen Anatomical Collection Method [...] Organization Address City/State/[place] [address] (ABNORMAL) Abscess/Wound Aspirate Culture (08/09/2017 8:30 AM EST) Patholo gist Method Time Signature Abscess/Wound Moderate mixed [place] Aspirate bacterial [place] Culture morphotypes [facility] normal LABORATORY cutaneous leroy (A) Gram Stain Rare White Blood Cells [place] Few Gram Positive Cocci in pairs [place] (A) [facility] LABOR[facility] Organism Gram Positive [place] Cocci in pairs [place] (A) [facility] LABORATORY Specimen Anatomical [...] Organization Address City/State/ZIP Code Phon e Number [address] POCT Glucose (08/09/2017 4:28 AM EST) P athologist Signature POC Glucose 128 65 - 199 [facility] mg/dL [facility] LABORAT[facility] Comment: [...] [facility]/[place] [address] ABORH Recheck Status (08/09/2017 1:10 AM EST) [facility] gist Method Time Signature ABORH Type Completed [facility] LABORATORY Specimen Anatomical Collection Method Collection Time Receive d Time (Source) Location / / Volume Laterality Blood specimen 08/09/2017 1:10 AM 018 1:35 (specimen) EST AM EST Resulting Agency Comment Spec In Lab Yonathan Smith MD BLOOD BANK ORDERABLES Performing Organization Address City/[facility]/[place] [address] Antibody screen (08/09/2017 1:10 AM EST) Patholo gist Method Time Signature Ab Screen Negative [facility] LABORATORY Expires at 08/12/2017 BARBARA ZHAORYAN [id number] on: [facility] LABORATORY Specimen Anatomical Collection Method Collection Time Receive d Time (Source) Location / / Volume Laterality Blood specimen 08/09/2017 1:10 AM 018 1:35 (specimen) EST AM EST Resulting Agency Comment Spec In Lab Yonathan Smith MD BLOOD BANK ORDERABLES Performing Organization Address City/[facility]/ZIP Code Phon e Number [address] ABO/Rh Typing (08/09/2017 1:10 [...] ORDERABLES Performing Organization Address City/[facility]/[place] [address] (ABNORMAL) APTT (08/09/2017 1:10 AM EST) P athologist Signature PTT 86 (H) 25 - 35 sec [facility] LABORATORY Comment: The recommended therapeutic range for fu ll dose, unfractionated heparin at [facility] is 80 ? 114 seconds. The use [...] Smith MD HEMATOLOGY ORDERABLES Performing Organization Address City/[facility]/[place] [address] (ABNORMAL) Differential, Automated (08/09/2017 1:10 AM EST) [facility] Method Time Signature Neutrophils % 76.2 % [facility] LABORATORY Neutr Abs (ANC) 8.59 (H) 1.70 - [facility] 6.10 [facility] x10(3)/[facility] LABORATORY Lymphocytes % 11.0 % [facility] LABORATORY Lymphocytes Abs 1.2 0.9 - 3.2 [facility] x10(3)/[facility] LABORATORY Monocytes % 8.4 % [facility] LABORATORY Monocyte Abs 1.0 (H) 0.3 - 0.9 [facility] x10(3)/[facility] LABORATORY Eosinophils % 3.5 % [facility] LABORATORY Eosinophils Abs 0.4 0.0 - 0.4 [facility] x10(3)/[facility] LABORATORY Basophils % 0.5 % [facility] LABORATORY Basophils Abs 0.1 0.0 - 0.1 [facility] x10(3)/[facility] LABORATORY Immature Gran % 0.40 % [...] Gran Abs 0.05 (H) 0.00 - 0.04 x10(3)/[facility] LABORATORY Specimen Anatomical Collection Method Collection Time Receive d Time (Source) Location / / Volume Laterality Blood specimen 08/09/2017 1:10 AM 018 1:19 (specimen) EST AM EST Resulting Agency Comment Spec In Lab Yonathan Smith MD HEMATOLOGY ORDERABLES Performing Organization Address City/State/Z[place] [address] [facility] LABOR[address]ORY Drive (ABNORMAL) Hemogram (08/09/2017 1:10 AM EST) Analysis Performed At Patho logist Time Signature WBC 11.3 (H) 4.0 - 9.5 [facility] x10(3)/[facility] LABORATORY RBC 3.47 (L) 4.58 - [facility] 5.54 [facility] x10(6)/[facility] LABORATORY Hemoglobin 10.0 (L) 13.7 - [facility] 16.5 gm/dL [facility] LABORATORY Hematocrit 31.9 (L) 40.5 - [facility] 48.5 % [facility] MCV 91.9 82.9 - [facility] 93.1 [facility] LABORATORY MCH 28.8 27.5 - [facility] 32.1 pg [facility] LABORATORY MCHC 31.3 (L) 32.0 - [facility] 35.7 gm/dL [facility] LABORATORY Platelets 234 145 - 357 [facility] x10(3)/[facility] LABORATORY RDWSD 54.0 (H) 36.0 - [facility] 45.0 [facility] LABORATORY RDWCV 16.2 (H) 11.4 - [facility] 13.8 % [facility] LABORATORY MPV 8.7 7.6 - 12.9 [facility] LABORATORY nRBC % Auto 0.0 % [facility] LABORATORY nRBC Abs Auto 0.000 0.000 - [facility] 0.000 [facility] x10(3)/[facility] LABORATORY Specimen Anatomical Collection Method Collection Time Receive d Time (Source) Location / / Volume Laterality Blood specimen 08/09/2017 1:10 AM 018 1:19 (specimen) EST AM EST Resulting Agency Comment Spec In Lab Yonathan Smith MD HEMATOLOGY ORDERABLES Performing Organization Address City/State/[place] [address] (ABNORMAL) Prothrombin Time (08/09/2017 [...] Organization Address City/State/ZIP Code Phon e Number [place] [id number]OS[address]ITAL [address] (ABNORMAL) Basic Metabolic Panel (non-fasting) (08/09/2017 1:10 AM EST) P athologist Signature Glucose Lvl 108 65 - 199 [facility] mg/dL [facility] LABORATORY Comment: Diabetes: >=200 mg/dL plus symp toms BUN 34 (H) 10 - 20 mg/dL [facility] LABORATORY Creatinine 1.54 (H) 0.80 - [...] mg/dL [facility] LABORATORY Estimated GFR 45 (L) >=60 [facility] LABORATORY Comment: The reported eGFR should be multiplied b y 1.2 for patients. The MDRD is not an appropriate measure o f renal function for patients with body mass extremes or in patients with acute kidney failure. http://Neighborhoods/DHnkdep http://Neighborhoods/DHMCnkf Specimen Anatomical Collection Method Collection Time Receive d Time (Source) Location / / Volume Laterality Blood specimen 08/09/2017 1:10 AM 018 1:19 (specimen) EST AM EST Resulting Agency Comment Spec In Lab Yonathan Smith MD CHEMISTRY ORDERABLES Performing Organization Address City/State/ZIP Code Phon e Number [address] POCT Glucose (08/09/2017 12:05 AM EST) athologist Signature POC Glucose 128 65 - 199 [facility] Comment: [...] [facility]/[place] [address] (ABNORMAL) POCT Glucose (08/08/2017 7:36 PM EST) athologist Signature POC Glucose 215 (H) 65 - 199 [facility]/dL [facility] Comment: [...] [facility]/[place] [address] (ABNORMAL) POCT Glucose (08/08/2017 6:23 PM EST) athologist Signature POC Glucose 216 (H) 65 - 199 [facility]/dL [facility] Comment: [...] [facility]/[place] [address] (ABNORMAL) APTT (08/08/2017 6:00 PM EST) athologist Signature PTT 97 (H) 25 - 35 sec [facility] LABORATORY Comment: The recommended therapeutic range for fu ll dose, unfractionated heparin at [facility] is 80 ? 114 seconds. The use [...] Smith MD HEMATOLOGY ORDERABLES Performing Organization Address City/[facility]/[place] [address] POCT Glucose (08/08/2017 4:42 PM EST) athologist Signature POC Glucose 78 65 - 199 [facility] mg/dL [facility] LAB[facility] Comment: [...] Organization Address City/State/[place] [address] (ABNORMAL) POCT Glucose (08/08/2017 4:01 PM EST) athologist Signature POC Glucose 58 (L) 65 - 199 [facility] mg/dL [facility] LABORATORY Comment: [...] Organization Address City/State/[place] [address] POCT Glucose (08/08/2017 11:51 AM EST) athologist Signature POC Glucose 90 65 - 199 [facility] mg/dL [facility] LABORATORY Comment: [...] Organization Address City/State/[place] [address] (ABNORMAL) APTT (08/08/2017 10:27 AM EST) athologist Signature PTT 64 (H) 25 - 35 sec [facility] LABORATORY Comment: The recommended therapeutic range for fu ll dose, unfractionated heparin at [facility] is 80 ? 114 seconds. The use [...] Organization Address City/State/ZIP Code Phon e Number [address] POCT Glucose (08/08/2017 8:02 AM EST) athologist Signature POC Glucose 178 65 - 199 [facility] mg/dL [facility] LABORATORY Comment: Supplemental ranges: <140 mg/dL before meals <180 mg/dL all other times of the day Specimen Anatomical Collection Method Collection Time Receive d Time (Source) Location / / Volume Laterality Blood specimen 08/08/2017 8:02 AM 018 8:02 (specimen) EST AM EST Yonathan Smith MD POINT OF CARE TEST ORDERABLE S Performing Organization Address [facility] Phon e Number [address] (ABNORMAL) APTT (08/08/2017 4:51 AM EST) athologist Signature PTT >160 25 - 35 [facility] (Critical) [facility] LABORATORY Comment: Called by: HOWARD, Read back by: Melba Jaramillo, Date/Time:08/08/17 05:43. The recommended therapeutic range for fu ll dose, unfractionated heparin at [facility] is 80 ? 114 seconds. The use [...] Smith MD HEMATOLOGY ORDERABLES Performing Organization Address City/[facility]/ZIP Code Phon e Number [address] (ABNORMAL) Differential, Automated (08/08/2017 4:51 AM EST) Patholo gist Method Time Signature Neutrophils % 77.9 % [facility] LABORATORY Neutr Abs (ANC) 8.17 (H) 1.70 - [facility] 6.10 [facility] x10(3)/[facility] LABORATORY Lymphocytes % 10.3 % [facility] LABORATORY Lymphocytes Abs 1.1 0.9 - 3.2 [facility] x10(3)/[facility] LABORATORY Monocytes % 7.0 % [facility] LABORATORY Monocyte Abs 0.7 0.3 - 0.9 [facility] x10(3)/[facility] LABORATORY Eosinophils % 3.6 % [facility] LABORATORY Eosinophils Abs 0.4 0.0 - 0.4 [facility] x10(3)/[facility] LABORATORY Basophils % 0.5 % [facility] LABORATORY Basophils Abs 0.0 0.0 - 0.1 [facility] x10(3)/[facility] LABORATORY Immature Gran % 0.70 % [...] Gran Abs 0.07 (H) 0.00 - 0.04 x10(3)/[facility] LABORATORY Specimen Anatomical Collection Method Collection Time Receive d Time (Source) Location / / Volume Laterality Blood specimen 08/08/2017 4:51 AM 018 5:14 (specimen) EST AM EST Resulting Agency Comment Spec In Lab Yonathan Smith MD HEMATOLOGY ORDERABLES Performing Organization Address City/State/Z[place] [address] (ABNORMAL) Hemogram (08/08/2017 4:51 AM EST) Analysis Performed At Patho logist Time Signature WBC 10.5 (H) 4.0 - 9.5 [facility] x10(3)/[facility] LABORATORY RBC 3.27 (L) 4.58 - [facility] 5.54 [facility] x10(6)/[facility] LABORATORY Hemoglobin 9.3 (L) 13.7 - [facility] 16.5 gm/dL [facility] LABORATORY Hematocrit 30.3 (L) 40.5 - [facility] 48.5 % [facility] LABORATORY MCV 92.7 82.9 - [facility] 93.1 [facility] LABORATORY MCH 28.4 27.5 - [place] 32.1 pg [facility] LABORATORY MCHC 30.7 (L) 32.0 - [facility] 35.7 gm/dL [facility] LABORATORY Platelets 252 145 - 357 [facility] x10(3)/[facility] LABORATORY RDWSD 54.6 (H) 36.0 - [facility] 45.0 [facility] LABORATORY RDWCV 16.2 (H) 11.4 - [facility] 13.8 % [facility] LABORATORY MPV 9.1 7.6 - 12.9 [facility] LABORATORY nRBC % Auto 0.0 % [facility] LABORATORY nRBC Abs Auto 0.000 0.000 - [facility] 0.000 [facility] x10(3)/[facility] LABORATORY Specimen Anatomical Collection Method Collection Time Receive d Time (Source) Location / / Volume Laterality Blood specimen 08/08/2017 4:51 AM 018 5:14 (specimen) EST AM EST Resulting Agency Comment Spec In Lab Yonathan Smith MD HEMATOLOGY ORDERABLES Performing Organization Address City/State/Z[place] [address] (ABNORMAL) Prothrombin Time (08/08/2017 [...] Organization Address City/State/[place] [address] (ABNORMAL) Basic Metabolic Panel (non-fasting) (08/08/2017 4:51 AM EST) athologist Signature Glucose Lvl 229 (H) 65 - 199 [facility] mg/dL [facility] LABORATORY Comment: Diabetes: >=200 mg/dL plus symp toms BUN 35 (H) 10 - 20 mg/dL [facility] LABORATORY Creatinine 1.57 (H) 0.80 - [...] mmol/L [facility] LABORATORY Calcium 7.9 (L) 8.5 - 10.5 mg/dL [facility] LABORATORY Estimated GFR 44 (L) >=60 [facility] LABORATORY Comment: The reported eGFR should be multiplied b y 1.2 for patients. The MDRD is not an appropriate measure o f renal function for patients with body mass extremes or in patients with acute kidney failure. http://Ne[employer] Hero.FreedomPay/DHnkdep http://Neighborhoods/[facility] Specimen Anatomical Collection Method Collection Time Receive d Time (Source) Location / / Volume Laterality Blood specimen 08/08/2017 4:51 AM 018 5:14 (specimen) EST AM EST Resulting Agency Comment Spec In Lab Yonathan Smith MD CHEMISTRY ORDERABLES Performing Organization Address City/State/[place] [address] POCT Glucose (08/08/2017 4:20 AM EST) athologist Signature POC Glucose 193 65 - 199 [facility]/dL [facility] LAB[facility]ORY Comment: [...] Organization Address City/State/[place] [address] POCT Glucose (08/07/2017 11:11 PM EST) athologist Signature POC Glucose 124 65 - 199 [facility] mg/dL [facility] LAB[facility]ORY Comment: [...] Organization Address City/State/[place] [address] (ABNORMAL) APTT (08/07/2017 10:18 PM EST) athologist Signature PTT 114 (H) 25 - 35 sec [facility] LABORATORY Comment: The recommended therapeutic range for fu ll dose, unfractionated heparin at [facility] is 80 ? 114 seconds. The use [...] Smith MD HEMATOLOGY ORDERABLES Performing Organization Address City/[facility]/ZIP Code Phon e Number [address] POCT Glucose (08/07/2017 8:10 PM EST) athologist Signature POC Glucose 140 65 - 199 [place] mg/dL [facility] LABORATORY Comment: [...] [facility]/ZIP Code Phon e Number [address] POCT Glucose (08/07/2017 5:27 PM EST) athologist Signature POC Glucose 187 65 - 199 [place] mg/dL [facility] LABORATORY Comment: [...] [facility]/ZIP Code Phon e Number [address] POCT Glucose (08/07/2017 3:29 PM EST) athologist Signature POC Glucose 86 65 - 199 [place] Y[place]AN mg/dL [facility] LABORATORY Comment: [...] [facility]/[place] [address] (ABNORMAL) APTT (08/07/2017 2:50 PM EST) athologist Signature PTT 60 (H) 25 - 35 sec [facility] LABORATORY Comment: The recommended therapeutic range for fu ll dose, unfractionated heparin at [facility] is 80 ? 114 seconds. The use [...] Smith MD HEMATOLOGY ORDERABLES Performing Organization Address City/[facility]/[place] [address] (ABNORMAL) POCT Glucose (08/07/2017 2:23 PM EST) athologist Signature POC Glucose 55 (L) 65 - 199 [facility] mg/dL [facility] LABORATORY Comment: [...] [facility]/[place] [address] POCT Glucose (08/07/2017 12:08 PM EST) P athologist Signature POC Glucose 77 65 - 199 [facility] mg/dL [facility] LABORATORY Comment: [...] Organization Address City/State/ZIP [place] [address] (ABNORMAL) Differential, Automated (08/07/2017 7:30 AM EST) Patholo gist Method Time Signature Neutrophils % 73.8 % [facility] LABORATORY Neutr Abs (ANC) 7.17 (H) 1.70 - [facility] 6.10 [facility] x10(3)/[facility] LABORATORY Lymphocytes % 12.2 % [facility] LABORATORY Lymphocytes Abs 1.2 0.9 - 3.2 [facility] x10(3)/[facility] LABORATORY Monocytes % 9.0 % [facility] LABORATORY Monocyte Abs 0.9 0.3 - 0.9 [facility] x10(3)/[facility] LABORATORY Eosinophils % 3.9 % [facility] LABORATORY Eosinophils Abs 0.4 0.0 - 0.4 [facility] x10(3)/[facility] LABORATORY Basophils % 0.6 % [facility] LABORATORY Basophils Abs 0.1 0.0 - 0.1 [facility] x10(3)/[facility] LABORATORY Immature Gran % 0.50 % [...] Gran Abs 0.05 (H) 0.00 - 0.04 x10(3)/[facility] LABORATORY Specimen Anatomical Collection Method Collection Time Receive d Time (Source) Location / / Volume Laterality Blood specimen 08/07/2017 7:30 AM 018 7:45 (specimen) EST AM EST Resulting Agency Comment Spec In Lab Yonathan Smith MD HEMATOLOGY ORDERABLES Performing Organization Address City/State/Z[place] [address] (ABNORMAL) Hemogram (08/07/2017 7:30 AM EST) Analysis Performed At Patho logist Time Signature WBC 9.7 (H) 4.0 - 9.5 [facility] x10(3)/[facility] LABORATORY RBC 3.54 (L) 4.58 - [facility] 5.54 [facility] x10(6)/[facility] LABORATORY Hemoglobin 9.9 (L) 13.7 - [facility] 16.5 gm/dL [facility] LABORATORY Hematocrit 32.3 (L) 40.5 - [facility] 48.5 % [facility] LABORATORY MCV 91.2 82.9 - [facility] 93.1 [facility] LABORATORY MCH 28.0 27.5 - [facility] 32.1 pg [facility] LABORATORY MCHC 30.7 (L) 32.0 - [facility] 35.7 gm/dL [facility] LABORATORY Platelets 312 145 - 357 [facility] x10(3)/[facility] LABORATORY RDWSD 53.2 (H) 36.0 - [facility] 45.0 [facility] LABORATORY RDWCV 16.0 (H) 11.4 - [facility] RYAN 13.8 % [facility] LABORATORY MPV 8.9 7.6 - 12.9 [facility] nRBC % Auto 0.0 % [facility] LABORATORY nRBC Abs Auto 0.000 0.000 - [facility] RYAN 0.000 [facility] x10(3)/[facility] LABORATORY Specimen Anatomical Collection Method Collection Time Receive d Time (Source) Location / / Volume Laterality Blood specimen 08/07/2017 7:30 AM 018 7:45 (specimen) EST AM EST Resulting Agency Comment Spec In Lab Yonathan Smith MD HEMATOLOGY ORDERABLES Performing Organization Address City/[facility]/ZIP [place] [address] (ABNORMAL) Basic Metabolic Panel (non-fasting) (08/07/2017 7:30 AM EST) athologist Signature Glucose Lvl 80 65 - 199 [facility] mg/dL [facility] [facility] Comment: Diabetes: >=200 mg/dL plus symp toms BUN 31 (H) 10 - 20 mg/dL [facility] Creatinine 1.22 0.80 - 1.50 [...] HOSPITAL LABOR[facility]ORY Estimated GFR 59 (L) >=60 [facility] Comment: The reported eGFR should be multiplied b y 1.2 for patients. The MDRD is not an appropriate measure o f renal function for patients with body mass extremes or in patients with acute kidney failure. http://Ne[employer].FreedomPay/DHnkdep http://Neuro Hero.FreedomPay/DHMCnkf Specimen Anatomical Collection Method Collection Time Receive d Time (Source) Location / / Volume Laterality Blood specimen 08/07/2017 7:30 AM 018 7:45 (specimen) EST AM EST Resulting Agency Comment Spec In Lab Yonathan Smith MD CHEMISTRY ORDERABLES Performing Organization Address City/[facility]/ZIP Code Phon e Number [place] [address] POCT Glucose (08/07/2017 7:27 AM EST) P athologist Signature POC Glucose 81 65 - 199 [facility] mg/dL [facility] Comment: [...] Organization Address City/State/ZIP Code Phon e Number [address] APTT (08/07/2017 7:04 AM EST) athologist Signature PTT 34 25 - 35 sec [facility] Comment: The recommended therapeutic range for fu ll dose, unfractionated heparin at [facility] is 80 ? 114 seconds. The use [...] Organization Address City/State/[place] [address] (ABNORMAL) Prothrombin Time (08/07/2017 [...] Smith MD HEMATOLOGY ORDERABLES Performing Organization Address City/[facility]/ZIP Code Phon e Number [address] POCT Glucose (08/07/2017 4:03 AM EST) athologist Signature POC Glucose 93 65 - 199 [place] RYAN mg/dL [facility] Comment: [...] [facility]/ZIP Code Phon e Number [address] POCT Glucose (08/07/2017 12:04 AM EST) athologist Signature POC Glucose 107 65 - 199 [place] mg/dL [facility] Comment: [...] [facility]/ZIP Code Phon e Number [address] POCT Glucose (08/06/2017 7:56 [...] Organization Address City/State/[place] [address] TcPO2 (08/06/2017 2:32 PM EST) Component Value Ref Test Analysis Performed At [facility] gist Range Method Time Signature VB Text Department: Vascular Surgery Lab VASCUBASE Report Patient: [id number] (GREGORY HOANG) CPT: [id number] ICD10: I99.8 Referring Physician: YONATHAN SMITH ?? [...] 0.5 mg 0157 (G iven - Provider: Mebla Jaramillo RN) 1042 (Given - Provider: Dory [...]
Routine documented in this encounter Care Teams Auditor Relationship Specialty Start Date End Date Lovely Vicente MD PCP - General 04/16/[address] [place] [address] [address] [place] [address] documented as of this encounter
--- OUTSIDE RECORDS SUMMARY | 2022-02-27 15:14 | XMS_ITS | Encounter Summary ---
:1945 Author Organization [facility] [place] [address] Care Team Providers Name Role Phone Lovely Vicente MD Primary Care Provider Encounter Details Date Type Department Care Team Description 08/04/2017 Notes Only Cardiac Surgery Makayla Wilson APRN [facility] [place] [address] CARDIAC SURGERY [phone] [place] [id number] (Wo rk) Social History Tobacco Use Types [...] Nobles MD [facility] ER CARDIOLOGY [place], [place] [address] (Wo rk) 06/10/2022 Office Visit Dermatology Laura Scherer MD [facility] DR [address] [place], [place] [address] (Wo rk) documented as of this encounter Visit Diagnoses Not on filedocumented in this encounter Care Teams Chief Drafter Relationship Specialty Start Date End Date Lovely Vicente MD PCP - General 04/16/[address] [place] [address] documented as of this encounter
--- OUTSIDE RECORDS SUMMARY | 2022-02-27 15:14 | XMS_ITS | Encounter Summary ---
:1945 Author Organization [facility] [place] [address] Care Team Providers Name Role Phone Lovely Vicente MD Primary Care Provider Encounter Details Date Type Department Care Team Description 08/02/2017 Telephone Pain Management at [facility] [place], [place] [address] Social History Tobacco Use Types Packs/Day [...] Management Center Preauthorization Request Patient: Don Fatima [id number] Fax received from [facility] requesting we obtain prior authorization for Lidocaine patches prescribed by Barbra Soares APRN. RX insurance plan: [employer] RX insurance telephone: [phone] Patient Diagnosis: right foot pain secondary to PVD and ischemia Previous medications attempted: Tylenol, Tramadol, Dilaudid The following action was taken after discussion with the mobile home servicer: _x_ pharmacy informed Authorized dosage or amount: 5% on patch on for 12 hours, then remove for 12 hours. Angeles Rodrigez, RN documented in this encounter Plan of Treatment Upcoming Encounters Date Type Specialty Care Team Description 03/26/2022 Office Visit Cardiology Vitaliy Nobles MD [facility] ER DR TADE[address] [place], [place] [address] (Wo rk) 06/10/2022 Office Visit Dermatology Laura Scherer MD [facility] ER DR [address]MAT [facility] [place], [place] [address] (Wo rk) documented as of this encounter Visit Diagnoses Not on filedocumented in this encounter Care Teams Office Manager Relationship Specialty Start Date End Date Lovely Vicente MD PCP - General 04/16/[address] [place] [address] documented as of this encounter
--- OUTSIDE RECORDS SUMMARY | 2022-02-27 15:14 | XMS_ITS | Encounter Summary ---
:1945 [place] [address] Care Team Providers Name Role Phone Lovely Vicente MD Primary Care Provider Encounter Details Date Type Department Care Team Description 08/04/2017 Notes Only Pain Management at Barbra Bruno, STACIE [facility] [place] [address] [place] [address] [phone] (Wo rk) Social History Tobacco Use Types [...] bid) at this time. Barbra Soares, MSN, SAP BW ARCHITECT-BC, [facility] documented in this encounter Plan of Treatment Upcoming Encounters Date Type Specialty Care Team Description 03/26/2022 Office Visit Cardiology Vitaliy Nobles MD [facility] ER DR [address] [place], [place] [address] (Wo rk) 06/10/2022 Office Visit Dermatology Laura Scherer MD [facility] DR [address] [place], [place] [address] (Wo rk) documented as of this encounter Visit Diagnoses Not on filedocumented in this encounter Care Teams Paint Spraying Machine Operator Helper Relationship Specialty Start Date End Date Lovely Vicente MD PCP - General 04/16/[address] [place] [address] documented as of this encounter
--- OUTSIDE RECORDS SUMMARY | 2022-02-27 15:14 | XMS_ITS | Encounter Summary ---
:1945 [place] [address] Care Team Providers Name Role Phone Lovely Vicente MD Primary Care Provider Encounter Details Date Type Department Care Team Description 08/04/2017 Notes Only Cardiac Surgery Makayla Wilson FLORAL MANAGER [facility] [place] [address] CARDIAC SURGERY [phone] [place], [place] [address] (Wo rk) Social History Tobacco [...] Vitaliy Nobles MD [facility] CARDIOLOGY [place], [place] [address] (Wo rk) 06/10/2022 Office Visit Dermatology Larua Scherer MD [facility] DR [address] [place], [place] [address] (Wo rk) documented as of this encounter Visit Diagnoses Not on filedocumented in this encounter Care Teams Drugless Doctor Relationship Specialty Start Date End Date Lovely Vicente MD PCP - General 04/16/[address] [place] [address] documented as of this encounter
--- OUTSIDE RECORDS SUMMARY | 2022-02-27 15:14 | XMS_ITS | Encounter Summary ---
:1945 Author Organization [facility] [address] Care Team Providers Name Role Phone Lovely Vicente MD Primary Care Provider Reason for Visit Auth/Cert Specialty Diagnoses / Procedures Referred By Contact Refer red To Contact Diagnoses Critical lower limb ischemia CELLULITIS RT FOOT Procedures EMERGENCY Referral ID Status Reason Start Date Expiration Date Visits Requ ested Visits Authorized [id number] 1 1 Encounter Details Date Type Department Care Team Description 08/04/2017 Office Visit Cardiology at [facility] Danette Maxwell Incisional pain; [facility] A, PICKER PACKER Ischemic cardiomyopathy; [facility] ASCVD (arteriosclerotic card iovascular disease); [place], [place] Systolic heart failure, unspecified hear t failure chronicity [id number] CARDIOLOGY [phone] [place], [place] [address] Social History Tobacco Use Types [...] in this encounter Progress Notes Danette Maxwell, PICKER PACKER - 08/04/2017 3:00 PM EST ID and [...] the OR for a 3 vessel CABG (THOMSPON->LAD, Seq SVG->OM1->D1) POD # 2 he was [...] painful 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 [...] Vitaliy Nobles MD [facility] CARDIOLOGY [place], [place] [address] (Wo rk) 06/10/2022 Office Visit Dermatology Laura Scherer MD [facility] DR [address] [place], [place] [address] (Wo rk) documented as [...] EXAMINATION: XR CHEST PA AND LATERAL (GE [employer]) CLINICAL HISTORY: Checking sternal stabi lity/assess wires [...] sensation documented in this encounter Care Teams Balloon Seller Relationship Specialty Start Date End Date Lovely Vicente MD PCP - General 04/16/[address] [place] [address] documented as of this encounter
--- OUTSIDE RECORDS SUMMARY | 2022-02-27 15:15 | XMS_ITS | Encounter Summary ---
:1945 [place] [address] Care Team Providers Name Role Phone Lovely Vicente MD Primary Care Provider Reason for Visit Reason Onset Date Comments Questions 07/16/2017 fluid retention Encounter Details Date Type Department Care Team Description 07/16/2017 Telephone Cardiology at [facility] Martha Comer, Questions ([facility] RN retention ) [place] [address] Social History Tobacco Use Types Packs/Day [...] the direct number to the HF team ([phone]). She is aware of his appt with BULK SEALER OPERATOR Hans on 07/21/17 and the need for labs prior to that visit. verbalized good understanding of the current POC. documented in this encounter Plan of Treatment Upcoming Encounters Date Type Specialty Care Team Description 03/26/2022 Office Visit Cardiology Vitaliy Nobles MD [facility] [address] [place], [place] [address] (Wo rk) 06/10/2022 Office Visit Dermatology Laura Scherer MD [facility] DR [address] [place], [place] [address] (Wo rk) documented as of this encounter Visit Diagnoses Not on filedocumented in this encounter Care Teams Bindery Machine Feeder Offbearer Relationship Specialty Start Date End Date Lovely Vicente MD PCP - General 04/16/15 [facility] [address] [place] [address] documented as of this encounter
--- OUTSIDE RECORDS SUMMARY | 2022-02-27 15:15 | XMS_ITS | Encounter Summary ---
:1945 Author Organization [facility] [place] [address] Care Team Providers Name Role Phone Lovely Vicente MD Primary Care Provider Reason for Visit Reason Comments Follow-up Encounter Details Date Type Department Care Team Description 07/29/2017 Office Visit Cardiac Surgery at [facility] Yuan Retana MD S/P CABG x [address] [facility] [place] [address] CARDIOTHORACIC SURGERY [phone] [place], [place] [address] (Wo rk) Social History Tobacco [...] evaluation by vascular surgery. Yuan Retana MD [phone] documented in this encounter Plan of Treatment Upcoming Encounters Date Type Specialty Care Team Description 03/26/2022 Office Visit Cardiology Vitaliy Nobles MD [facility] [address] [place], [place] [address] (Wo rk) 06/10/2022 Office Visit Dermatology Laura Scherer MD [facility] DR [address] [place], [place] [address] (Wo rk) documented as of this encounter Visit Diagnoses Diagnosis S/P CABG x 3 Postsurgical aortocoronary bypass status documented in this encounter Care Teams Animal Nurse Relationship Specialty Start Date End Date Lovely Vicente MD PCP - General 04/16/15 [address] [place] [address] documented as of this encounter
--- OUTSIDE RECORDS SUMMARY | 2022-02-27 15:15 | XMS_ITS | Encounter Summary ---
:1945 [place] [address] Care Team Providers Name Role Phone Lovely Vicente MD Primary Care Provider Encounter Details Date Type Department Care Team Description 07/16/2017 Telephone Endocrinology at [facility] C Manuela Holliday, [facility] [place] [address] ENDOCRINOLOGY DEPT [phone] [place], [place] [address] (Wo rk) Social History Tobacco [...] Cardiology Vitaliy Nobles MD [facility] [address] [place], [place] [address] ([facility]) 06/10/2022 Office Visit Dermatology Laura Scherer MD [facility] [address] [place], [place] [address] (Wo ) documented as of this encounter Visit Diagnoses Not on filedocumented in this encounter Care Teams Social Psychologist Relationship Specialty Start Date End Date Lovely Vicente MD PCP - General 04/16/[address] [place] [address] documented as of this encounter
--- OUTSIDE RECORDS SUMMARY | 2022-02-27 15:15 | XMS_ITS | Encounter Summary ---
:1945 Author Organization [facility] [place] [address] Care Team Providers Name Role Phone Lovely Vicente MD Primary Care Provider Reason for Visit Reason Onset Date Comments Other 07/22/2017 lovenox bridge Encounter Details Date Type Department Care Team Description 07/22/2017 Telephone Cardiology at [facility] Court Cadena RN Other (lovenox bridge) [place] [address] Social History Tobacco Use Types Packs/Day [...] who was recently discharged from [facility] r/t a blood clot. [facility]charge [facility] (fax# [phone], Ph#: [phone]) which contains instructions r/t lovenox bridge as follows: Anticoagulation: on lovenox bridge to therapeutic coumadin for AFib. Goal INR 2-3. At discharge INR=1.5. The lovenox injections can stop when INR >2, coumadin will continue indefinitely. documented in this encounter Plan of Treatment Upcoming Encounters Date Type Specialty Care Team Description 03/26/2022 Office Visit Cardiology Vitaliy Nobles MD [facility] [address] [place], [place] [address] (Wo rk) 06/10/2022 Office Visit Dermatology Laura Scherer MD [facility] DR [address] GR[facility]DERMAT [facility] [place] [place] [address] (Wo rk) documented as of this encounter Visit Diagnoses Not on filedocumented in this encounter Care Teams Chief Underwriter Relationship Specialty Start Date End Date Lovely Vicente MD PCP - General 04/16/[address] [place] [address] documented as of this encounter
--- OUTSIDE RECORDS SUMMARY | 2022-02-27 15:15 | XMS_ITS | Encounter Summary ---
:1945 Author Organization [facility] [address] Care Team Providers Name Role Phone Lovely Vicente MD Primary Care Provider Reason for Visit Reason Comments Foot Pain Auth/Cert Specialty Diagnoses / Procedures Referred By Contact Refer red To Contact Diagnoses Ischemic foot Procedures NAYE OBSVO Referral ID Status Reason Start Date Expiration Date Visits Requ ested Visits Authorized [id number] 1 1 Encounter Details Date Type Department Care Team Description 07/27/2017 Emergency 1 [facility] Lokesh Swenson MD [facility] [place] [address] Femoral artery pseudo-aneurysm, right; [facility] Tam Bauman MD [facility] [place] [address] [place] [address] Social History Tobacco Use Types Packs/Day [...] Gregory Fatima Patient Age: 72 y.o. Language: New Zealander Race: White Ethnicity: [...] please contact your inpatient physician through the [facility] Tugboat Dispatcher . Issues after hours and on weekends [...] RLE critical limb ischemia, who presented to [facility] with worsening RLE pain. Pt post-op course after CABG was significant for paroxysmal Afib, and he was started on Coumadin given elevated [id number] score. 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 He [...] in the last 7068 hours. Invalid input(s): [id number] Recent Labs 07/08/17 0400 07/07/17 0515 07/06/17 [...] (it was low at 1.6 here at [facility]) 7. Use the tramadol if dilaudid or tylenol is not working 8. Stop taking the potassium supplement - your blood potassium level was elevated. Ask your doctors at future visits if this should be restarted. 9. Antibiotic for 5 days recommended by cardiothoracic surgery for chest wound drainage Follow-Up Appointments Vascular surgery as previously schedule Your Inpatient Doctor(s) at [facility]: CARLOS ALBERTO ROSALES MD General Instructions None Future Appointments and Orders Future Appointments Provider Department Dept Phone 07/30/2017 8:30 AM OSWALDO, THREE L Lab 3L [facility] [phone] 07/30/2017 9:40 AM Danette Maxwell APRN Cardiology at [place] [phone] 08/04/2017 1:00 PM Daniele Mooney [place] Vascular [facility] [place] [phone] 08/04/2017 2:15 PM Arik Clement MD Vascular Surgery at [place] [phone] 08/11/2017 10:00 AM [facility] ROOM 2 XRay at [place] [phone] Please go to Receptionist Telephone Operator Area 3T ([place] Location). 08/11/2017 11:00 AM Yuan Retana MD Cardiac Surgery at [place] [phone] 09/07/2017 3:00 PM LAB, THREE L Lab 3L [facility] [phone] 09/07/2017 4:00 PM Luz Prescott MD Endocrinology at [place] [phone] Discharge References/Attachments None documented in this encounter [...] (it was low at 1.6 here at [facility]) 3. Use the tramadol if dilaudid or tylenol is not working 4. Stop taking the potassium supplement - your blood potassium level was elevated. Ask your doctors at future visits if this should be restarted. 5. Antibiotic for 5 days recommended by cardiothoracic surgery for chest wound drainage Follow-Up Appointments Vascular surgery as previously schedule Your Inpatient Doctor(s) at [facility]: CARLOS ALBERTO ROSALES MD documented in this [...] Gas) No results found for: PHART, PO2ART, YTM0FUI Assessment/Plan: 72 y.o. male s/p CABG in [...] intervention: Education Nutrition Recommendations: Recommend continuation of [facility], CHO2 diet order Patient and denied need [...] Orders Diet Daily Healthy Menu Choices/Cardiac diet ([facility]-Diet) 60/ CHO counting level 2 Frequency: Effective Now Number of Occurrences: Until Specified Admit Weight: 83.92 kg Estimated body mass index is 28.13 kg/(m^2) as calculated from the following: Height as of this encounter: 172.7 cm (5' 8). Weight as of this encounter: 83.9 kg (185 lb). Munson body weight: 68.4 kg (150 lb 12.7 [...] RLE critical limb ischemia, who presented to [facility] with worsening RLE pain. Visited with patient [...] spent >30 minutes (Day of Discharge Code 08398) involved in the final examination of the [...] Melanoma ID: 72 y.o. Male presents to [facility] with persistent pain b/l lower extremities History of Present Illness: HPI 72 y.o. male with PMH ASCVD s/p CABG (07/07/17), MARIA VICTORIA on CPAP QHS, HTN, HLD, DM2, with recent hospitalization for RLE critical limb ischemia, who presented to [facility] with worsening RLE pain. Pt post-op course after CABG was significant for paroxysmal Afib, and he was started on Coumadin given elevated ANKD2YRHTS score. 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 He [...] performed by Manny Mcknight MD at [facility] MAIN OR ??? PRO CABG, ARTERIAL, SINGLE N/A 07/07/2017 @CABG, USING ARTERIAL GRAFT;SINGLE ARTERIAL GRAFT (WRVU 33.75) performed by Yuan Retana MD at [facility] MAIN OR ??? PRO CABG, ARTERY-VEIN, TWO N/A 07/07/2017 @CABG, TWO VENOUS GRAFTS & ARTERIAL GRAFT (WRVU 7.93) performed by Yuan Retana MD at [facility] MAIN OR ??? PRO COLONOSCOPY, REMV LESN, SNARE 01/16/2014 COLONOSCOPY, POLYPECTOMY, REMOVAL LESION BY SNARE performed by Nohemi Jaimes MD at [facility] ENDOSCOPY ??? PRO ENDOSCOPY W/VIDEO-ASST VEIN HARVEST, CABG Right 07/07/2017 ENDOSCOPIC HARVEST VEIN(S) FOR CABG (WRVU 0.31) performed by Yuan Retana MD at [facility] MAIN OR ??? PRO THYROIDECTOMY 03/28/2013 THYROIDECTOMY, TOTAL OR COMPLETE performed by Manny Mcknight MD at [facility] MAIN OR Prior To Admission Medications: [...] Procedure Component Value Units Date/Time Blood culture [[id number]] Collected: 07/09/1739 Lab Status: Final result Specimen: Blood from Arm, Right Updated: 07/14/17701 Blood Culture No growth at 5 days. Blood culture [[id number]] Collected: 07/09/170 Lab Status: Final result Specimen: [...] limb ischemia following CABG, who presented to [facility] ED from home with persistent B/L LE [...] continued Diet Daily Healthy Menu Choices/Cardiac diet ([facility]-Diet) 60/60/75 CHO counting level 2Cardiac, low salt, CHO 2 Discharge planning Pending improvement in pain control PT/OT/Speech PT ordered Lines/Access PIV Ocasio catheter No DVT/GI Prophylaxis Lovenox bridge to Coumadin, SCD. Code status Full Code Family PCP Lovely Vicente MD [phone] Attestation Please see my note for details [...] history reviewed ED Course: ED Course Steven Paniagua'alviia Documentation Value Comment Time INR: (!) 1.6 [...] encounter Miscellaneous Notes Plan of Care - Lutz-Joyce Damian, PT - 07/27/2017 3:26 PM EST [...] Anticipated Discharge Disposition: home with assist Pager: [phone] JOYCE KING, PT Inpatient Physical Therapy 2017 [...] patient's evaluation including the following functional test(s) [facility]. Current ability measures, co-morbidities and clinical judgement [...] a lovenox bridge. Mr. Fatima returns to [facility] ED tonight because of ongoing pain in [...] performed by Manny Mcknight MD at [facility] MAIN OR ??? PRO CABG, ARTERIAL, SINGLE N/A 07/07/2017 @CABG, USING ARTERIAL GRAFT;SINGLE ARTERIAL GRAFT (WRVU 33.75) performed by Yuan Retana MD at [facility] MAIN OR ??? PRO CABG, ARTERY-VEIN, TWO N/A 07/07/2017 @CABG, TWO VENOUS GRAFTS & ARTERIAL GRAFT (WRVU 7.93) performed by Yuan Retana MD at [facility] MAIN OR ??? PRO COLONOSCOPY, REMV LESN, SNARE 01/16/2014 COLONOSCOPY, POLYPECTOMY, REMOVAL LESION BY SNARE performed by Nohemi Jaimes MD at [facility] ENDOSCOPY ??? PRO ENDOSCOPY W/VIDEO-ASST VEIN HARVEST, CABG Right 07/07/2017 ENDOSCOPIC HARVEST VEIN(S) FOR CABG (WRVU 0.31) performed by Yuan Retana MD at [facility] MAIN OR ??? PRO THYROIDECTOMY 03/28/2013 THYROIDECTOMY, TOTAL OR COMPLETE performed by Manny Mcknight MD at [facility] MAIN OR MEDICATIONS: No current facility-administered [...] up in clinic 1-2 weeks after discharge. [facility] Vascular Surgery Plan of Care [...] Visit Cardiology Vitaliy Nobles MD [facility] CARDIOLOGY [place], [place] [address] (Wo rk) 06/10/2022 Office Visit Dermatology Laura Scherer MD [facility] [address]DER[address] OLOGY [place], [place] [address] (Wo rk) documented as of this [...] section. TYPE AND SCREEN STAT 07/27/2017 12:53 ([facility]/CGP/SHANDA) AM EST BASIC METABOLIC PANEL STAT 07/27/2017 12:53 Re sults for this (NON-FASTING) AM EST procedure are in the results section. documented in this encounter Results POCT Glucose (07/27/2017 11:53 AM EST) P athologist Signature POC Glucose 175 65 - 199 [facility] mg/dL [facility] Comment: Supplemental ranges: <140 mg/dL before meals <180 mg/dL all other times of the day Specimen Anatomical Collection Method Collection Time Receive d Time (Source) Location / / Volume Laterality Blood specimen 07/27/2017 11:53 8 (specimen) AM EST 11:53 AM EST Tam Bauman MD POINT OF CARE TEST ORDERABLE S Performing Organization Address City/State/[place] [address] Arterial Duplex Leg, Unil (07/27/2017 7:40 AM EST) Component Value Ref Test Analysis Performed At Patholo gist Range Method Time Signature VB Text Department: Vascular Surgery Lab VASCUBASE Report Patient: [id number] (GREGORY FATIMA) CPT: 97531 ICD10: I97.610;I72.4;Z09 Referring Physician: TAM BAUMAN ?? [...] Bauman MD VASCULAR ORDERABLES Performing Organization Address City/[facility]/ZIP Code Phon e Number VASCUBASE POCT Glucose (07/27/2017 6:51 AM EST) P athologist Signature POC Glucose 96 65 - 199 [facility] mg/dL [facility] Comment: Supplemental ranges: <140 mg/dL before meals <180 mg/dL all other times of the day Specimen Anatomical Collection Method Collection Time Receive d Time (Source) Location / / Volume Laterality Blood specimen 07/27/2017 6:51 AM 018 6:51 (specimen) EST AM EST Tam Bauman MD POINT OF CARE TEST ORDERABLE S Performing Organization Address City/[facility]/ZIP Code Phon e Number [address] ABORH Recheck Status (07/27/2017 12:53 AM EST) Patholo gist Method Time Signature ABORH Type Completed [facility] LABORATORY Specimen Anatomical Collection Method Collection Time Receive d Time (Source) Location / / Volume Laterality Blood specimen 07/27/2017 12:53 8 (specimen) AM EST 12:58 AM EST Resulting Agency Comment Spec In Lab Angela Swenson MD BLOOD BANK ORDERABLES Performing Organization Address City/[facility]/ZIP Code Phon e Number [address] Gold Tube HOLD (07/27/2017 12:53 AM EST) P athologist Signature Gold Hold Sample in [facility] LABORATORY Specimen Anatomical Collection Method Collection Time Receive d Time (Source) Location / / Volume Laterality Blood specimen Venous Draw / 07/27/2017 12:53 07/27/19 18 1:01 (specimen) Unknown AM EST AM EST Angela Swenson MD CHEMISTRY ORDERABLES Performing Organization Address City/[facility]/ZIP Code Phon e Number [place] [id number]OS[address] (ABNORMAL) Differential, Automated (07/27/2017 12:53 AM EST) [facility] Method Time Signature Neutrophils % 75.0 % [facility]OR[facility]ORY Neutr Abs (ANC) 11.30 (H) 1.70 - [facility] 6.10 [facility] x10(3)/[facility] LABORATORY Lymphocytes % 9.9 % [facility] Lymphocytes Abs 1.5 0.9 - 3.2 [facility] x10(3)/[facility] LABORATORY Monocytes % 8.6 % [facility] Monocyte Abs 1.3 (H) 0.3 - 0.9 [facility] x10(3)/[facility] LABORATORY Eosinophils % 4.8 % [facility]OR[facility]ORY Eosinophils Abs 0.7 (H) 0.0 - 0.4 [facility] x10(3)/[facility] LABORATORY Basophils % 0.8 % [facility] LABOR[facility]ORY Basophils Abs 0.1 0.0 - 0.1 [facility] x10(3)/[facility] LABORATORY Immature Gran % 0.90 % [facility] [...] Gran Abs 0.13 (H) 0.00 - 0.04 x10(3)/[facility] LABORATORY Specimen Anatomical Collection Method Collection Time Receive d Time (Source) Location / / Volume Laterality Blood specimen 07/27/2017 12:53 8 1:00 (specimen) AM EST AM EST Resulting Agency Comment Spec In Lab Angela Swenson MD HEMATOLOGY ORDERABLES Performing Organization Address City/State/ZIP Code Phon e Number [place] [phone] HOS[address] LAB[address] (ABNORMAL) Hemogram (07/27/2017 12:53 AM EST) Analysis Performed At Patho logist Time Signature WBC 15.0 (H) 4.0 - 9.5 [facility] x[facility](3[facility] LABORATORY RBC 3.59 (L) 4.58 - [place] 5.54 [facility] x10(6)/[facility] LABORATORY Hemoglobin 10.3 (L) 13.7 - [facility] RYAN 16.5 gm/dL [facility] LABOR[facility]ORY Hematocrit 32.6 (L) 40.5 - [facility] 48.5 % [facility] LABOR[facility]ORY MCV 90.8 82.9 - [facility] 93.1 [facility] LABORATORY MCH 28.7 27.5 - [facility] RYAN 32.1 pg [facility] LABORATORY MCHC 31.6 (L) 32.0 - [place] R[place]AN 35.7 gm/dL [facility] LABORATORY Platelets 322 145 - 357 [facility] x10(3)/[facility] LABORATORY RDWSD 48.7 (H) 36.0 - [facility] RYAN 45.0 [facility] LABORATORY RDWCV 14.7 (H) 11.4 - [facility] RYAN 13.8 % [facility] LABORATORY MPV 8.9 7.6 - 12.9 [facility] LABORATORY nRBC % Auto 0.0 % [facility] LABORATORY nRBC Abs Auto 0.000 0.000 - [facility] 0.000 [facility] x10(3)/[facility] LABORATORY Specimen Anatomical Collection Method Collection Time Receive d Time (Source) Location / / Volume Laterality Blood specimen 07/27/2017 12:53 8 1:00 (specimen) AM EST AM EST Resulting Agency Comment Spec In Lab Angela Swenson MD HEMATOLOGY ORDERABLES Performing Organization Address City/State/[place] [address] Antibody screen (07/27/2017 12:53 AM EST) Patholo gist Method Time Signature Ab Screen Negative [facility] LABORATORY Expires at 07/30/2017 KATALINA DAVIS [id number] on: [facility] LABORATORY Specimen Anatomical Collection Method Collection Time Receive d Time (Source) Location / / Volume Laterality Blood specimen 07/27/2017 12:53 8 (specimen) AM EST 12:58 AM EST Resulting Agency Comment Spec In Lab Angela Swenson MD BLOOD BANK ORDERABLES Performing Organization Address City/[facility]/[place] [address] ABO/Rh Typing (07/27/2017 12:53 AM EST) P athologist Signature ABORh Type O Pos [facility] LABORATORY Specimen Anatomical Collection Method Collection Time Receive d Time (Source) Location / / Volume Laterality Blood specimen 07/27/2017 12:53 8 (specimen) AM EST 12:58 AM EST Resulting Agency Comment Spec In Lab Angela Swenson MD BLOOD BANK ORDERABLES Performing Organization Address [facility] [place] [address] (ABNORMAL) Prothrombin Time (07/27/2017 12:53 AM EST) P athologist Signature PT 19.1 (H) 11.8 - 14.0 [facility] LABORATORY INR 1.6 (H) 0.9 - 1.1 [facility] [...] Swenson MD HEMATOLOGY ORDERABLES Performing Organization Address [facility] [place] [address] (ABNORMAL) Basic Metabolic Panel (non-fasting) (07/27/2017 12:53 AM EST) P athologist Signature Glucose Lvl 95 65 - 199 [facility] mg/dL [facility]ORY Comment: Diabetes: >=200 mg/dL plus symp toms BUN 37 (H) 10 - 20 mg/dL [facility] LABORATORY Creatinine 1.49 0.80 - 1.50 mg/dL [facility] LABORATORY Sodium 137 135 - 145 mmol/L [facility] LABORATORY Potassium 5.1 (H) 3.5 - 5.0 mmol/L [facility] Comment: Please note: ??Patients with WBC >100,00 0 may have falsely elevated Potassium levels. ??For accurate Potassium quantif ication in these patients send serum separator tube (gold top) for subsequent determinations. ??Contact the Clinical Chemistry Laboratory if there are any qu estions. Chloride 96 (L) 98 - 107 mmol/L [facility]OR[facility]ORY CO2 28 22 - 31 mmol/L [facility] Anion Gap 13 5 - 15 mmol/L [facility] Calcium 8.6 8.5 - 10.5 mg/dL [facility] LABORATORY Estimated GFR 46 (L) >=60 [facility] Comment: The reported eGFR should be multiplied b y 1.2 for patients. The MDRD is not an appropriate measure o f renal function for patients with body mass extremes or in patients with acute kidney failure. 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
Routine documented in this encounter Care Teams Snuff Grinder And Screener Relationship Specialty Start Date End Date Lovely Vicente MD PCP - General 04/16/15 [facility] [address] [place] [address] documented as of this encounter
--- OUTSIDE RECORDS SUMMARY | 2022-02-27 15:15 | XMS_ITS | Encounter Summary ---
:1945 Author Organization [facility] [place] [address] Care Team Providers Name Role Phone Lovely Vicente MD Primary Care Provider Encounter Details Date Type Department Care Team Description 07/24/2017 Telephone Vascular Surgery Melba Bob [facility] [place] [address] [facility] [phone] VASCULAR SURGERY [place], [place] [address] (Wo rk) Social History Tobacco [...] Nobles MD [facility] [address] [place], [place] [address] (Wo rk) 06/10/2022 Office Visit Dermatology Laura Scherer MD [facility] [address] [place], [place] [address] (Wo rk) documented as of this encounter Visit Diagnoses Not on filedocumented in this encounter Care Teams Public Affairs Specialist Relationship Specialty Start Date End Date Lovely Vicente MD PCP - General 04/16/[address] [place] [address] (work) documented as of this encounter
--- OUTSIDE RECORDS SUMMARY | 2022-02-27 15:15 | XMS_ITS | Encounter Summary ---
:1945 [place] [address] Care Team Providers Name Role Phone Lovely Vicente MD Primary Care Provider Reason for Visit Reason Comments Hospital Transfer cold foot post CABG Auth/Cert Specialty Diagnoses / Procedures Referred By Contact Refer red To Contact Diagnoses Critical lower limb ischemia Procedures NAYE IPI Referral ID Status Reason Start Date Expiration Date Visits Requ ested Visits Authorized [id number] 1 1 Encounter Details Date Type Department Care Team Description 07/20/2017 Hospital Encounter 4 Herminia Ibarra MD [facility] [place] [address] Critical lower limb [facility] Arik Clement MD [facility] [place] [address] [place] [address] Social History Tobacco Use Types Packs/Day Years [...] home. Important Studies and Lab Data: Labs: TellFigs Lab Results Component Value Date INR 1.5 [...] For any problems or questions please call [phone] ZELDA Smith, tank furnace operator Nurse Clinician For issues on weeknights after 5pm and weekends please call [phone] and ask for the Vascular Fellow connection worker. General Instructions None Future Appointments and Orders Future Appointments Provider Department Dept Phone 08/04/2017 1:00 PM Daniele Mooney [place] [facility] [place] [phone] 08/04/2017 2:15 PM Arik Clement MD [facility] Surgery [facility] [place] [phone] 09/07/2017 3:00 PM MAYRA CHACON Lab [facility] [phone] 09/07/2017 4:00 PM Luz Prescott MD Endocrinology at [place] [phone] Future Orders Complete By Expires Arterial Duplex Leg, Unil [VAS32 Custom] 07/27/2017 (Approximate) 01/26/2018 Process Instructions: There is no in-house vascular prosthetic lab technician available on weeknights (5pm-8am), weekends, or holidays. IF THIS IS A REQUEST FOR AN EMERGENT STUDY DURING THOSE HOURS, please have the senior provider responsible for the patient page the Vascular Surgery Fellow/Senior Resident connection worker to discuss options. Scheduling Instructions: Questions: Indication for study/signs & symptoms: Right femoral PSA s/p cardiac cath Question to be answered: bloodflow to PSA Laterality: Right Is there a RIGHT LOWER EXTREMITY graft?: No Lower limb right segments: Common Femoral Is there a stent?: No At which location will this be performed?: [place] Referral to Home Health - at DISCHARGE [[id number] CPT(R)] As directed Process Instructions: Scheduling Instructions: Comments: DOCUMENTATION FOR VNA SERVICES (INCLUDING THOSE PATIENTS WITH MEDICARE COVERAGE REQUIRING HOME VNA SERVICES AND/OR HOSPICE SERVICES) PATIENT'S LOCATION: Gregory Fatima [address] [place] [address] [place] [id number] (home) Cell: Telephone Information: Waiter Waitress's Name: self In discussion with the attending physician, it is certified that this patient is under their care and that they, or a Nurse Practitioner,Clinical Nurse specialist or Physician Purse Framer who is working directly with them, had [...] CARE AGENCY: [facility] ([facility] [place] [facility]-is in [place] PHONE: [phone] FAX: [phone] Start of care: 24- 48 hours FOR [...] patient'sPCP: Lovely Vicente MD [address] [facility] [place] / [place] [address] All VNA agencies which cover the area [...] For any problems or questions please call [phone] ZELDA Smith, tank furnace operator Nurse Clinician For issues on weeknights after 5pm and weekends please call [phone] and ask for the Vascular Fellow connection worker. documented in this encounter Medications at [...] RN - 07/20/2017 2:53 PM EST The patient/accounting representative has been provided a list of Home Health Agencies/DME vendors which serve their preferred geographic area. A letter describing our affiliations was reviewed with them and theywere educated about their right to choose where referrals are placed. Patient requests referral to [facility]. PHONE: [phone] FAX: [phone]. Expected date of discharge: 07/20/2017 . Referral routed to the Loading Unit Tool Setter for matching with agency/vendor and to provide any required information. Naty Pulliam RN - 07/20/2017 11:37 AM EST The patient/accounting representative has been provided a list of Home Health Agencies/DME vendors which serve their preferred geographic area. A letter describing our affiliations was reviewed with them and theywere educated about their right to choose where referrals are placed. Patient requests referral to [facility] ([facility] [place] [facility]- is in [place] PHONE: [phone] FAX: [phone]. Expected date of discharge: 07/20/2017 . Referral routed to the Loading Unit Tool Setter for matching with agency/vendor and to provide any required information. Katina Pulliam RNfabric awning repairer Janneth Lee MD - 07/20/2017 7:29 AM [...] SETUP performed by Manny Mcknight MD at [facility] MAIN OR ??? PRO CABG, ARTERIAL, SINGLE N/A 07/07/2017 @CABG, USING ARTERIAL GRAFT;SINGLE ARTERIAL GRAFT (WRVU 33.75) performed by Yuan Retana MD at [facility] MAIN OR ??? PRO CABG, ARTERY-VEIN, TWO N/A 07/07/2017 @CABG, TWO VENOUS GRAFTS & ARTERIAL GRAFT (WRVU 7.93) performed by Yuan Retana MD at [facility] MAIN OR ??? PRO COLONOSCOPY, REMV LESN, SNARE 01/16/2014 COLONOSCOPY, POLYPECTOMY, REMOVAL LESION BY SNARE performed by Nohemi Jaimes MD at [facility] ENDOSCOPY ??? PRO ENDOSCOPY W/VIDEO-ASST VEIN HARVEST, CABG Right 07/07/2017 ENDOSCOPIC HARVEST VEIN(S) FOR CABG (WRVU 0.31) performed by Yuan Retana MD at [facility] MAIN OR ??? PRO THYROIDECTOMY 03/28/2013 THYROIDECTOMY, TOTAL OR COMPLETE performed by Manny Mcknight MD at [facility] MAIN OR Functional Status/Social Hx: Social History [...] -ISS -pain control Discussed with Vascular Fellow connection worker. Chris Valadez MD PGY2 Pager [phone] documented in this encounter ED Notes Annita Reaves MD - 07/20/2017 3:15 PM EST Emergency Department Gregory Fatima is a 72 y.o. 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 History of Present Illness [...] Hospitalizations Within the Past 30 Days: [facility] 07/05/17 Anticipated Length Of Stay (If known): [...] Health/Prescription Coverage: Primary Insurance: MEDICARE Secondary Insurance: [employer] [facility] Prescription Coverage: See above Preferred Pharmacy: [facility] Other: N/A Primary Care Provider: Lovely Vicente MD [phone] Patient/Caregiver Goals of Treatment: Patient plans to return home when medically ready Potential Needs for Transition of Care: Rehab/SNF: N/A Home Health: [facility] ([facility] [place] [facility]-is in [place] PHONE: [phone] FAX: [phone] DME: N/A Dialysis: N/A Community Resources: N/A Transportation: Patient family will transport Other: N/A Anticipated Barriers to Discharge/Special Considerations: None Plan: Patient plans to return home with home health services when medically ready A member of the Care Management team will continue to monitor progress, follow for continuity of care and assist with transition of care planning. Naty Pulliam RN Pager: [phone] ED Triage - Rayna Weir RN - 07/20/2017 12:28 AM EST Pt transferred from [place] for blue right foot and painful toes. [...] Vitaliy Nobles MD [facility] [address] [place], [place] [address] ([facility]) 06/10/2022 Office Visit Dermatology Laura Scherer MD [facility] DR TEJA [address]DERMAT [place], [place] [address] ([facility]) documented as of this encounter Procedures Procedure Name Priority Date/Time Associated Comments Diagnosis COLLEGE TUTOR SCAN 09/02/2017 12:00 Res ults for this [...] LAB EST procedure are i n ([facility]) the results section. APTT STAT 07/20/2017 2:25 AM Results f or this EST procedure are i n the results section. PROTHROMBIN TIME STAT 07/20/2017 2:25 AM Resul ts for this EST procedure are i n the results section. BASIC METABOLIC PANEL STAT 07/20/2017 2:25 AM Results for this (NON-FASTING) EST procedure are in the results section. documented in this encounter Results SCAN DOC: COLLEGE TUTOR (09/02/2017 12:00 AM EST) Narrative 09/02/2017 12:00 AM EST This result has an attachment that is no t available. Ordered by an unspecified provider. Scanning Provider MEDIA MGR SCAN EXT ORDR/RSLT POCT Glucose (07/20/2017 12:04 PM EST) P athologist Signature POC Glucose 189 65 - 199 [facility] mg/dL [facility] Comment: Supplemental ranges: <140 mg/dL before meals <180 mg/dL all other times of the day Specimen Anatomical Collection Method Collection Time Receive d Time (Source) Location / / Volume Laterality Blood specimen 07/20/2017 12:04 7 (specimen) PM EST 12:04 PM EST Arik Clement MD POINT OF CARE TEST ORDERABLE S Performing Organization Address City/State/ZIP Code Phon e Number [address] (ABNORMAL) Differential, Automated (07/20/2017 10:34 AM EST) [facility] Method Time Signature Neutrophils % 84.3 % [facility]OR[facility]ORY Neutr Abs (ANC) 14.27 (H) 1.70 - [facility] 6.10 [facility] x10(3)/[facility] LABORATORY Lymphocytes % 5.6 % [facility] LABORATORY Lymphocytes Abs 1.0 0.9 - 3.2 [facility] x10(3)/[facility] LABORATORY Monocytes % 6.1 % [facility] LABORATORY Monocyte Abs 1.0 (H) 0.3 - 0.9 [facility] x10(3)/[facility] LABORATORY Eosinophils % 2.4 % [facility]ORY Eosinophils Abs 0.4 0.0 - 0.4 [facility] x10(3)/[facility] LABORATORY Basophils % 0.5 % [facility] Basophils Abs 0.1 0.0 - 0.1 [facility] x10(3)/[facility] LABORATORY Immature Gran % 1.10 % [facility] Comment: Immature granulocytes(IG's)percentage an d absolute count will include metamyelocytes, myelocytes, and promyelo cytes. Blood smears from CBCs yielding IG's will be scanned manually for concor dance. If this scan disagrees with the automated IG or if promyelocytes are not ed, a manual differential will be performed. Melisa Gran Abs 0.19 (H) 0.00 - 0.04 x10(3)/[facility] LABORATORY Specimen Anatomical Collection Method Collection Time Receive d Time (Source) Location / / Volume Laterality Blood specimen 07/20/2017 10:34 7 (specimen) AM EST 10:39 AM EST Resulting Agency Comment Spec In Lab Arik Clement MD HEMATOLOGY ORDERABLES Performing Organization Address City/[facility]/ZIP [place] [address] (ABNORMAL) Hemogram (07/20/2017 10:34 AM EST) Analysis Performed At Patho logist Time Signature WBC 17.0 (H) 4.0 - 9.5 [facility] x10(3)/[facility] LABORATORY RBC 3.70 (L) 4.58 - [facility] 5.54 [facility] x10(6)/[facility] LABORATORY Hemoglobin 10.8 (L) 13.7 - [facility] 16.5 gm/dL [facility] Hematocrit 33.4 (L) 40.5 - [facility] 48.5 % [facility] MCV 90.3 82.9 - [facility] 93.1 [facility] LABORATORY MCH 29.2 27.5 - [facility] 32.1 pg [facility] LABORATORY MCHC 32.3 32.0 - [facility] 35.[facility] gm/dL [facility] Platelets 211 145 - 357 [facility] x10(3)/[facility] LABORATORY RDWSD 49.1 (H) 36.0 - [facility] 45.0 [facility] LABORATORY RDWCV 14.7 (H) 11.4 - [facility] 13.8 % [facility] LABORATORY MPV 9.2 7.6 - 12.9 [facility] LABORATORY nRBC % Auto 0.0 % [facility] nRBC Abs Auto 0.000 0.000 - [facility] 0.000 [facility] x10(3)/[facility] LABORATORY Specimen Anatomical Collection Method Collection Time Receive d Time (Source) Location / / Volume Laterality Blood specimen 07/20/2017 10:34 7 (specimen) AM EST 10:39 AM EST Resulting Agency Comment Spec In Lab Arik Clement MD HEMATOLOGY ORDERABLES Performing Organization Address City/State/[place] [address] (ABNORMAL) APTT (07/20/2017 10:34 AM EST) P athologist Signature PTT 79 (H) 25 - 35 sec [facility] Comment: The recommended therapeutic range for fu ll dose, unfractionated heparin at [facility] is 80 ? 114 seconds. The use [...] Clement MD HEMATOLOGY ORDERABLES Performing Organization Address City/[facility]/ZIP Code Phon e Number [address] POCT Glucose (07/20/2017 7:41 AM EST) P athologist Signature POC Glucose 174 65 - 199 [facility] mg/dL [facility] Comment: Supplemental ranges: <140 mg/dL before meals <180 mg/dL all other times of the day Specimen Anatomical Collection Method Collection Time Receive d Time (Source) Location / / Volume Laterality Blood specimen 07/20/2017 7:41 AM 017 7:41 (specimen) EST AM EST Arik Clement MD POINT OF CARE TEST ORDERABLE S Performing Organization Address City/State/ZIP Code Phon e Number [address] JULIAN, legs, multiple levels (07/20/2017 7:33 AM EST) Component Value Ref Test Analysis Performed At Patholo gist Range Method Time Signature VB Text Department: Vascular Surgery Lab VASCUBASE Report Patient: [id number] (GREGORY FATIMA) CPT: 77165 ICD10: I75.021;I99.8 Referring Physician: ARIK CLEMENT ?? [...] Component Value Ref Test Analysis Performed At [facility] Range Method Time Signature VB Text Department: Vascular Surgery Lab VASCUBASE Report Patient: [id number] (GREGORY FATIMA) CPT: 06534 ICD10: I97.610;I99.8 Referring Physician: ARIK CLEMENT ?? [...] Signature POC Glucose 199 65 - 199 [facility] mg/dL [facility] Comment: Supplemental ranges: <140 mg/dL before meals <180 mg/dL all other times of the day Specimen Anatomical Collection Method Collection Time Receive d Time (Source) Location / / Volume Laterality Blood specimen 07/20/2017 3:41 AM 017 3:41 (specimen) EST AM EST Arik Clement MD POINT OF CARE TEST ORDERABLE S Performing Organization Address City/State/[place] [address] Lactate, whole blood, send to lab (Leb/CGP) (07/20/2017 2:25 AM EST) athologist Signature Lactate WB 2.0 0.5 - 2.2 [facility] mmol/L [facility] Specimen Anatomical Collection Method Collection Time Receive d Time (Source) Location / / Volume Laterality Blood specimen Venous Draw / 07/20/2017 2:25 AM 2016 2:37 (specimen) Unknown EST AM EST Resulting Agency Comment Spec In Lab Zulma Samuel MD CHEMISTRY ORDERABLES Performing Organization Address City/State/[place] [address] (ABNORMAL) APTT (07/20/2017 2:25 AM EST) P athologist Signature PTT 36 (H) 25 - 35 sec [facility] Comment: The recommended therapeutic range for fu ll dose, unfractionated heparin at [facility] is 80 ? 114 seconds. The use [...] Organization Address City/State/[place] [address] (ABNORMAL) Prothrombin Time (07/20/2017 2:25 AM EST) P athologist Signature PT 17.7 (H) 11.8 - 14.0 [facility] [...] Organization Address City/State/[place] [address] (ABNORMAL) Basic Metabolic Panel (non-fasting) (07/20/2017 2:25 AM EST) athologist Signature Glucose Lvl 187 65 - 199 [facility] mg/dL [facility] Comment: Diabetes: >=200 mg/dL plus symp toms BUN 35 (H) 10 - 20 mg/dL [facility] Creatinine 1.51 (H) 0.80 - 1.50 mg/dL [facility] LABORATORY Sodium 134 (L) 135 - 145 mmol/L [facility]OR[facility] Potassium Not Perf 3.5 - 5.0 mmol/L [facility] Comment: Specimen hemolyzed. Called by: [facility], Read back by: Chitra Orantes, Date/Time:07/20/17 03:05. Please note: ??Patients with WBC >100,00 0 may have falsely elevated Potassium levels. ??For accurate Potassium quantif ication in these patients send serum separator tube (gold top) for subsequent determinations. ??Contact the Clinical Chemistry Laboratory if there are any qu estions. Chloride 92 (L) 98 - 107 mmol/L [facility] CO2 29 22 - 31 mmol/L [facility] Anion Gap 13 5 - 15 mmol/L [facility] Calcium 8.6 8.5 - 10.5 mg/dL [facility] Estimated GFR 46 (L) >=60 [facility] Comment: The reported eGFR should be multiplied b y 1.2 for patients. The MDRD is not an appropriate measure o f renal function for patients with body mass extremes or in patients with acute kidney failure. http://Allostatix/DHnkdep http://Allostatix/DHMCnkf Specimen Anatomical Collection Method Collection Time Receive d Time (Source) Location / / Volume Laterality Blood specimen 07/20/2017 2:25 AM 017 2:33 (specimen) EST AM EST Resulting Agency Comment Spec In Lab Annita Reaves MD CHEMISTRY ORDERABLES Performing Organization Address City/State/ZIP Code [place] [address] documented in this encounter [...] Group 2) 0-8,000 Units, Intravenous, BOLUS PER [facility] PROTOCOL, Starting Wed07/20/17 at 0424, Until Wed07/20/17 [...]
Routine documented in this encounter Care Teams Supervisor Coil Winding Relationship Specialty Start Date End Date Lovely Vicente MD PCP - General 04/16/[address] [place] [address] documented as of this encounter
--- OUTSIDE RECORDS SUMMARY | 2022-02-27 15:16 | XMS_ITS | Encounter Summary ---
:1945 Author Organization [facility] [place] [address] Care Team Providers Name Role Phone Lovely Vicente MD Primary Care Provider Encounter Details Date Type Department Care Team Description 07/08/2017 Orders Only Cardiology [facility] [place] [address] Social History Tobacco Use Types Packs/Day [...] [facility] [address] [place], [place] [address] (Wo rk) 06/10/2022 Office Visit Dermatology Laura Scehrer MD [facility] DR TEJA [address]DER[address] [place], [place] [address] (Wo rk) documented as of [...] Mccollum ? (Age): 1945(72y) Med Rec#: ? [id number] ?Sex: ?M ? Site Loc: ? Ht / Wt: ??(cm)/ (kg) ? Pt. Loc: ? Study Date: ?? 07/07/2017 ?Pt. Type: Tape: ? Referring: Yuan Retana Reading: Yifan Perez MD ([id number]) Performing: Yifan Perez MD ([id number]) Diagnosis: SUMMARY: 1. [facility] [...] ? Mid-Inferior ?Hypokinetic ? Mid-Inferoseptal ?Hypokinetic ? [place]-Septal ? Hypokinetic ? [place]-Anterior ? Hypokinetic ? [place]-Lateral ?Hypokinetic ? [place]-Inferior ? Hypokinetic ? [place]-Tip ?Not Seen ? This report has been electronically sign ed by: _ Yifan Perez MD ? 07/08/2017 12 :25:18 Images reviewed and interpretation [facility] Cardiac Ultrasound Laboratory Procedure Note Yifan Perez MD - 07/08/2017Formatt ing of this note might be different from the original. Procedure: Transesophageal Echocardiogra m Patient: NATALYA MCBRIDE(Age): [birth year]72y) Med Rec#: [id number] Sex: M Site Loc: Ht / Wt: (cm)/ (kg) Pt. Loc: Study Date: 07/07/2017 Pt. Type: Tape: Referring: Yuan Retana Reading: Yifan Perez MD ([id number]) Performing: Yifan Perez MD ([id number]) Diagnosis: SUMMARY: 1. [facility] for the [...] Hypokinetic Mid-Posterolateral Hypokinetic Mid-Inferior Hypokinetic Mid-Inferoseptal Hypokinetic [place]-Septal Hypokinetic [place]-Anterior Hypokinetic [place]-Lateral Hypokinetic [place]-Inferior Hypokinetic [place]-Tip Not Seen This report has been electronically sign ed by: _ Yifan Perez MD 07/08/2017 12:25:18 Images reviewed and interpretation verif ied [facility] Cardiac Ultrasound Laboratory Unknown ECHO ORDERABLES Performing Organization Address City/State/ZIP Code Phon e Number [facility] documented in this encounter Visit Diagnoses Not on filedocumented in this encounter Care Teams Lead Technologist In Cytogenetics Relationship Specialty Start Date End Date Lovely Vicente MD PCP - General 04/16/[address] [place] [address] documented as of this encounter
--- OUTSIDE RECORDS SUMMARY | 2022-02-27 15:16 | XMS_ITS | Encounter Summary ---
:1945 Author Organization [facility] [place] [address] Care Team Providers Name Role Phone Lovely Vicente MD Primary Care Provider Reason for Referral Consultation (Routine) - Closed Specialty Diagnoses / Referred By Contact Referred To Contact Procedures Cardiac Rehabilitation Diagnoses S/P CABG x 3 Yuan Webber, Cardiac Rehab, [address] [place] CARDIOTHORACIC [address] [place] [address] Referral ID Status Reason Start Date Expiration Date Visits V isits Requested Authorized [id number] Closed Consult, 07/14/2017 01/10/2018 36 36 Test & Treat Reason for Visit Auth/Cert Specialty Diagnoses / Procedures Referred By Contact Refer red To Contact Diagnoses STEMI (ST elevation myocardial infarction) NSTEMI STEMI Procedures CARDIAC CATHETERIZATION NAYE IPI Referral ID Status Reason Start Date Expiration Date Visits Requ ested Visits Authorized [id number] 1 1 Encounter Details Date Type Department Care Team Description 07/05/2017 - Hospital Encounter Cardiac Special Daphne Shahid MD [facility] [place] [address] Non-ST elevation myocardial infarction ( NSTEMI); 07/14/2017 Care Unit Yuan Preciado MD [facility] [place] [address] S/P CABG x 3 [place] [id number] Social History Tobacco Use Types Packs/Day Years [...] Patient Age: 72 y.o. Birthdate: 1945 Language: Ethiopian Race: White Ethnicity: Not nor Admit Date: [...] , @ 1:20p Patient to follow-up with Bailer Tenders Supervisor/heart failure team in one week. An appointment will be made for you. You may call [phone] Patient to follow-up with Cardiac Surgery, Dr. Yuan Webber, in ~ 4 weeks with CXR, EKG. Inpatient Provider Contact Information: [facility] Section of Cardiac Surgery [facility] [place] [address] FAX [phone] Discharge Diagnoses (Hospital Problems) Primary Diagnoses: CAD [...] 33.75) performed by Yuan Webber MD at [facility] MAIN OR ??? PRO CABG, ARTERY-VEIN, TWO N/A 07/07/2017 @CABG, TWO VENOUS GRAFTS & ARTERIAL GRAFT (WRVU 7.93) performed by Yuan Webber MD at [facility] MAIN OR ??? PRO COLONOSCOPY, REMV LESN, SNARE 01/16/2014 COLONOSCOPY, POLYPECTOMY, REMOVAL LESION BY SNARE performed by Nohemi Jaimes MD at [facility] ENDOSCOPY ??? PRO ENDOSCOPY W/VIDEO-ASST VEIN HARVEST, CABG Right 07/07/2017 ENDOSCOPIC HARVEST VEIN(S) FOR CABG (WRVU 0.31) performed by Yuan Webber MD at [facility] MAIN OR ??? PRO THYROIDECTOMY 03/28/2013 THYROIDECTOMY, TOTAL OR COMPLETE performed by Manny Mcknight MD at [facility] MAIN OR Prior To Admission Medications Prescriptions Prior to Admission Medication Sig Dispense Refill Last Dose ??? levothyroxine (SYNTHROID) 175 mcg Tablet Take 1 tablet by mouth daily. 90 tablet 3 07/05/2017 [id number] ??? ascorbic acid, vitamin C, (VITAMIN C) [...] hospital and ruled infor non-ST segment elevation PA. This almost certainly represents the residual of [...] Hospital Course: Gregory Hoang was admitted to [facility] on 07/05/2017 via the Cardiology Service. During his hospital course, he was taken emergently to the confectionery laboratory manager for an ongoing STEMI. An IABP was [...] not take or discontinue any prescription or zkqa-gly-cqmmjds medications without asking your doctor or pharmacist [...] Yuan Webber and/or the Cardiac Surgery Physician Office Systems Technology Instructor Team may be reached at . Weight: [...] Dr. Yuan Webber. You may use a [place] Track or treadmill but avoid any pulling [...] with the surgeon. Do not ride motorcycles, GetNotes's tractors or horses. Avoid the use of [...] should resume a low fat, low cholesterol, [place] Heart Association Diet/Diabetic diet. Driving: No driving [...] , @ 1:20p Patient to follow-up with Bailer Tenders Supervisor/heart failure team in one week. Appointment will be made for you. You may call [phone] Patient to follow-up with Cardiac Surgery, Dr. Yuan Webber, in ~ 4 weeks with CXR, EKG. Cardiac Rehabilitation: Gregory Hoang was seen today regarding participation in the outpatient Phase 2 Cardiac Rehabilitation at [facility]. The patient agrees to a referral to this program. The referral will be sent at discharge and the patient should be contacted by the Program within 1- 2 weeks from discharge. ?? Future Appointments and Orders Future Appointments Provider Department Dept Phone 09/07/2017 3:00 PM LAB, THREE L Lab 3L [facility] [phone] 09/07/2017 4:00 PM Luz Prescott MD Endocrinology at [facility] [phone] Future Orders Complete By Expires EKG 12 Lead [EKG1 Custom] 08/14/2017 02/13/2018 Process Instructions: Scheduling Instructions: Questions: Which location will this be performed?: [facility] Is a rhythm strip needed?: No If EKG Reason is Pre-op Evaluation, indicate diagnosis for surgery.: XR Chest PA & Lateral (Generic) [94691 [id number] Custom] 08/14/2017 02/13/2018 Process Instructions: Scheduling Instructions: Questions: Where will study be performed?: [facility] Portable exam?: Reason for exam and clinical history: CABG x 3 Other pertinent information: Stat read required?: Date of injury if applicable: Requested Time: Referral to Cardiac Rehab [OPP807 Custom] As directed Process Instructions: If no progress note charted, please enter Clinical details in comments. Scheduling Instructions: Questions: My question or request is: s/p CABG. Cardiac rehab at [facility] Referral to Home Health - at DISCHARGE [OOL3237 CPT(R)] As directed Process Instructions: Scheduling Instructions: Comments: DOCUMENTATION FOR VNA SERVICES (INCLUDING THOSE PATIENTS WITH MEDICARE COVERAGE REQUIRING HOME VNA SERVICES AND/OR HOSPICE SERVICES) PATIENT'S LOCATION: Gregory Hoang [address] [place] [address] [place] [address] (home) Telephone Information: Coil Shaper's Name: self In discussion with the attending physician, it is certified that this patient is under their care and that they, or a Nurse Practitioner, or Physician Office Systems Technology Instructor who is working directly with them, [...] HEALTH AGENCY: [facility] ([facility] [place] [facility] in [place]) PHONE: [phone] FAX: [phone] RN orders: Cardiopulmonary assessment, incisional assessment, assess vital signs, assessment of rehab progress, medication management and effectiveness, home safety evaluation. Please draw INR if indicated and send result to:Dr Vicente [phone] PT ORDERS: Continue rehab for endurance, gait stability and strength with mobility and transfers. Home safety evaluation. Home exercise program if appropriate. Start of Care Date:24-48 hours after discharge SPECIAL INSTRUCTIONS: For any follow up questions, needs, or issues please call the Cardiac Surgery Office at [phone] FOR MEDICARE ONLY: (please delete this section [...] OR AFTER 07/17/2017 Signed: Martha Teague APRN [facility] Section of Cardiac Surgery [facility] [place] [address] FAX [phone] Date: 07/14/2017 CC: MD Ivania Cr Betsy, PA [address] [place] [phone] documented in this encounter Discharge Instructions Discharge [...] not take or discontinue any prescription or vukc-htd-vauqhyr medications without asking your doctor or pharmacist [...] juice or regular (not diet) soda 6 Dragonflys small box of raisins 4 glucose tablets [...] Yuan Webber and/or the Cardiac Surgery Physician Office Systems Technology Instructor Team may be reached at . ?? [...] Dr. Yuan Webber. You may use a [place] Track or treadmill but avoid any pulling [...] with the surgeon. Do not ride motorcycles, [employer]'CELLFOR tractors or horses. Avoid the use of [...] should resume a low fat, low cholesterol, [place] Heart Association Diet/Diabetic diet. ?? Driving: No [...] @ 1:20p ?? Patient to follow-up with Bailer Tenders Supervisor/heart failure team in one week. An appointment has been made for you, you can call [phone] ?? Patient to follow-up with Cardiac Surgery, Dr. Yuan Webber, in ~ 4 weeks with CXR, EKG. ? Cardiac Rehabilitation: Gregory Hoang??was seen today regarding participation in the outpatient Phase 2 Cardiac Rehabilitation at [facility]. ?? The patient agrees to a referral to this program.? The referral will be sent at discharge and the patient should be contacted by the Program within 1- 2 weeks from discharge. ? Future Appointments and Orders Future Appointments Provider Department Dept Phone ?? 09/07/2017 3:00 PM LAB, THREE L Lab 3L [facility] [phone] ?? 09/07/2017 4:00 PM Luz Prescott MD Endocrinology at [facility] [phone] Future Orders Complete By Expires ?? EKG 12 Lead [EKG1 Custom] 08/14/2017 02/13/2018 ?? Process Instructions: ? Scheduling Instructions: ? Questions: ? Which location will this be performed?: [facility] ?? Is a rhythm strip needed?: No ?? If EKG Reason is Pre-op Evaluation, indicate diagnosis for surgery.: ?? XR Chest PA & Lateral (Generic) [[id number] Custom] 08/14/2017 02/13/2018 ?? Process Instructions: ? Scheduling Instructions: ? Questions: ? Where will study be performed?: [facility] ?? Portable exam?: ?? Reason for exam and clinical history: CABG x 3 ?? Other pertinent information: ?? Stat read required?: ?? Date of injury if applicable: ?? Requested Time: ?? Referral to Cardiac Rehab [LIS405 Custom] As directed ? Process Instructions: ?? If no progress note charted, please enter Clinical details in comments. ?? Scheduling Instructions: ? Questions: ? My question or request is: s/p CABG. Cardiac rehab at [facility] ? Arrangements for VNA/home [...] RN - 07/14/2017 2:34 PM EST The patient/key account representative has been provided a list of Home Health Agencies/DME vendors which serve their preferred geographic area. A letter describing our affiliations was reviewed with them and theywere educated about their right to choose where referrals are placed. Patient requests referral to [facility] PHONE: [phone] FAX: [phone] Expected date of discharge: 07/14 Referral routed to the Mental Hygienist for matching with agency/vendor and to provide [...] – [place] Endocrinology Diabetes Management Pager [phone] 20 minutes of this 35 minute visit was spent with the patient in counseling on diabetes and treatment plan, reviewing all glucose and insulin data as well as relevant laboratory results with the patient, and coordination of care on the inpatient unit including nursing and primary team. Zulma Andres, RN - 07/14/2017 10:30 AM EST The patient/key account representative has been provided a list of Home Health Agencies/DME vendors which serve their preferred geographic area. A letter describing our affiliations was reviewed with them and theywere educated about their right to choose where referrals are placed. Patient requests referral to : [facility] ([facility] [place] [facility] in [place]) PHONE: [phone] FAX: [phone]. Expected date of discharge: 07/14/17 Referral routed to the Mental Hygienist for matching with agency/vendor and to provide [...] hours. If BG remains greater than 240, fvzukf31 units (no more than three times) &??call [...] – [place] Endocrinology Diabetes Management Pager [phone] 15 minutes of this 25 minute visit [...] of infiltration/extravasation Discussed plan of care with PATIENT DAY COORDINATOR and RN. Elevate exrtemity and apply [...] measuring tape and identifier in the photo) SOLAR DEVELOPMENT ENGINEER CARING FOR THIS PATIENT WILL CONTINUE TO [...] measuring tape and identifier in the photo) SOLAR DEVELOPMENT ENGINEER CARING FOR THIS PATIENT WILL CONTINUE TO [...] AM EST Cardiac Surgery Progress Note: ID: [id number] 72 year old male POD#6 s/p CABGx3 [...] discharge. ?? I have met with the patient/key account representative to discuss discharge planning needs. I have provided the [facility] [place], Office of Care Management letter from the [employer] pertaining to rehab referrals. I have also provided a letter describing our affiliations within the [facility] and educated them about their right to choose where referrals are placed. ?? I reviewed the different levels of rehab including SNF, swing, acute and LTAC with the patient/key account representative. ?? The patient/key account representative has been provided a list of facilities within their preferred geographic area. ?? I have requested that the patient/key account representative provide at least three choices for referral. ?? The patient/key account representative have requested referrals to: ?? 1. . ?? 2. [facility] ?? 3. More to be entered ?? Expected date of discharge: 07/14 Note routed to Mental Hygienist who will communicate referrals to facilities and [...] hours. If BG remains greater than 240, btlpza15 units (no more than three times) & [...] hours. If BG remains greater than 240, nxvxex39 units (no more than three times) & call for new basal insulin orders. ??If less than 240 after two hours, give no insulin and resume prior schedule. Will continue to follow Katerin Patel. STACIE Azul [facility] [place] Endocrinology Diabetes Management Pager [phone] 20 minutes of this 35 minute visit was spent with the patient in counseling on diabetes and treatment plan, reviewing all glucose and insulin data as well as relevant laboratory results with the patient, and coordination of care on the inpatient unit including nursing and primary team. Makayla Stevenson APRN - 07/12/2017 9:52 AM EST Cardiac Surgery Progress Note: ID: [id number] 72 year old male POD#5 s/p CABGx3 [...] PM EST Patient arrived from [facility]. VSS. MSI dressing pulled off [...] hours. If BG remains greater than 240, dnwmca22 units (no more than three times) & [...] AM EST Cardiac Surgery Progress Note: ID: [id number] 72 year old male POD#4 s/p CABGx3 [...] on HF meds. Signed: MAKAYLA WILSON APRN iNnfa Arnett DT - 07/11/2017 7:34 AM EST [...] hours. If BG remains greater than 240, hbiimu55 units (no more than three times) & [...] AM EST Cardiac Surgery Progress Note: ID: [id number] 72 year old male POD#3 s/p CABGx3 [...] Gas) No results found for: PHART, PO2ART, PCR4SYT Assessment/Plan: 72 year old male POD#3 s/p [...] Encounter Note Patient Name: Gregory Hoang : [id number] MR#: [id number] Admit Date: 07/05/2017 4:20 PM Hospital Day 4 days Narrative: Patient was sitting in chair, hugging heart pillow, opened his eyes, nodding to come into room Assessment: Patient was sleepy. Intervention and Outcome: Introduced asp net c developer services and patient reached his hand out in appreciation. Follow-up: Academic Specialist remains available for support. Time in [...] 10:45 AM EST Report given to staff midwife to cover care Maddison Cee PA - 07/09/2017 9:00 AM EST Cardiac Surgery Progress Note: ID: [id number] 72 year old male POD#2 s/p CABGx3 [...] Attending Surgeon on rounds. Signed: STEPHANIE Iqbal [facility] Section of Cardiac Surgery Date: 07/09/2017 Magnolia Santiago [facility] - 07/09/2017 1:[address] [...] when IABP d/c'ed. Gretchen Carolina, PT Pager [phone] Maddison Cee PA - 07/08/2017 11:27 AM EST Cardiac Surgery Progress Note: ID: [id number] 72 year old male POD#1 s/p CABGx3 [...] Attending Surgeon on rounds. Signed: STEPHANIE Iqbal [facility] Section of Cardiac Surgery Date: [...] unit. NICK SEGAL MD 07/08/2017 Jay Munoz [facility] - 07/08/2017 4:[address] [...] in place in R femoral. No hematoma. KNOWLEDGE ARCHITECT- Intact Psych- Anxious Skin- Dry, no peripheral [...] Ramírez MD, PGY-1 Cardiology S1 (pgr. [phone]) Daphne Shahid MD - 07/06/2017 10:18 PM [...] intact. IABP in place in R femoral. KNOWLEDGE ARCHITECT- Intact Psych- Anxious Skin- Dry, no peripheral [...] note for details. DAPHNE SHAHID MD Pager [phone] Jet Mckenna MD - 07/05/2017 6:48 PM EST Preliminary Cardiac Catheterization Procedure Note: Procedure(s) performed: Left heart cath, IABP insertion Access: Right EMT-->8fr IABP A time-out was conducted prior to [...] effect. Heparin gtt maintained. Pt transferred to confectionery laboratory manager. documented in this encounter H&P Notes Daphne Shahid MD - 07/05/2017 6:08 PM EST CARDIOLOGY HISTORY & PHYSICAL EXAM Date of Admission: 07/05/2017 ( Hospital Day 0 days ) Responsible Attending: Daphne Shahid MD PCP: Lovely Vicente MD PCP#: [phone] Patient Active Problem List Diagnosis Code ??? [...] No significant valvular disease. Taken to the confectionery laboratory manager urgently for ongoing STEMI. [facility] Labs: INR 1.0 WBC [...] monitor I/O - s/p lasix in the confectionery laboratory manager, redose to aim net neg 1L by [...] - ISS - hold metformin - f/u [facility] #Home Meds - continue levothyroxine 175mcg - CPAP at night # Routine - DVT PPx: heparin drip - Diet: NPO - Code Status: FULL - Dispo: [facility] Cedric Bey MD Internal Medicine, PGY-2 Cardiology S1, Team Pager # [phone] CARDIOLOGY ATTENDING NOTE Patient: Gregory Hoang Date [...] CAD, not particularly amenable for PCI. DAPHNE SAHHID MD Pager [phone] documented in this encounter Miscellaneous Notes Consult Note - Daphne Shahid MD - 07/14/2017 11:46 AM EST Heart Failure Service Inpatient Consult Note Gregory Hoang Date of : 1945 Age: 72 y.o. Today's date: 07/14/17 PCP: Lovely Vicente MD PLANISHER: None Place of Service: [facility] Reason for Consult: Dr. Webber has requested [...] 33.75) performed by Yuan Webber MD at [facility] MAIN OR ??? PRO CABG, ARTERY-VEIN, TWO N/A 07/07/2017 @CABG, TWO VENOUS GRAFTS & ARTERIAL GRAFT (WRVU 7.93) performed by Yuan Webber MD at [facility] MAIN OR ??? PRO COLONOSCOPY, REMV LESN, SNARE 01/16/2014 COLONOSCOPY, POLYPECTOMY, REMOVAL LESION BY SNARE performed by Nohemi Jaimes MD at [facility] ENDOSCOPY ??? PRO ENDOSCOPY W/VIDEO-ASST VEIN HARVEST, CABG Right 07/07/2017 ENDOSCOPIC HARVEST VEIN(S) FOR CABG (WRVU 0.31) performed by Yuan Webber MD at [facility] MAIN OR ??? PRO THYROIDECTOMY 03/28/2013 THYROIDECTOMY, TOTAL OR COMPLETE performed by Manny Mcknight MD at [facility] MAIN OR Outpt Meds: Current [...] following studies: EKG 07/14/17: NSR 75 bpm, SAIL REPAIRER anterior infarct, LAD CXR 07/11/17: FINDINGS: Sternotomy wires. The patient has been extubated, left chest tube removed, and [place]suba-Suzi catheter removed since the 07/07/2017 study. Atelectasis [...] was discussed with Zehra. Jaden Kelley MD [employer] Pager [phone] CARDIOLOGY ATTENDING NOTE Patient: Gregory Hoang Date [...] heart failure clinic. DAPHNE SHAHID MD Pager [phone] Plan of Care - Alden Chavarria, GASTROENTEROLOGY MANAGER - 07/14/2017 11:35 AM EST Problem: Patient [...] Discharge Disposition: home with assist Alden Chavarria, GASTROENTEROLOGY MANAGER Pager: [phone] Inpatient Physical Therapy Problem: Acute Rehab Services [...] sit/sit to supine -- Bed Mobility Goal, Garrett Level supervision required -- Bed Mobility Goal, [...] - 3 days -- Gait Training Goal, Garrett Level supervision required -- Gait Training Goal, [...] days -- Transfer Training Goal, Activity Type ith-fh-xhoci/aujia-zq-yei;znf-vw-zyprj/zzofq-gf-yxr;toilet -- Transfer Train Goal, Garrett Level supervision required -- Transfer Training Goal, [...] keeping present for 2 days per family. Supervisor Cell Efficiency noted of frustrations, house keeping sent to room. Patient offered showered twice, refused. at bedside, frustrated that shower not complete, informed that patient had refused several times. requesting to see DIRECTOR SECURITY RISK MANAGEMENT, paged sent to Martha, will come to bedside (middle of consult). not willing to wait, Martha notified that family had gone home. Encouraged to come for morning rounds a t 8am. Diabetes team at bedside - insulin adjustments made. Call cabello in reach. Continue to monitor. PLAN MOVING FORWARD: Ambulate, dressing changes BID, Please change drsg at 4am per Martha DIRECTOR SECURITY RISK MANAGEMENT request. INDIVIDUALIZED FALL PREVENTION INTERVENTIONS: Patient-specific fall [...] levels on the lower side, 60ml of Cherokee juice given after a FS of 80. [...] Conf 07/13/17 0502 Interdisciplinary Rounds/Family Conf Participants telephonic case manager;dietitian/nutrition services;nursing;occupational therapy;patient;pharmacy;physical therapy;physician Plan of [...] Anticipated Discharge Disposition: home with assist Pager: [phone] CLARISSA SEGAL, PT 07/12/2017 Physical Therapy Rehabilitation [...] to sit/sit to supine Bed Mobility Goal, Garrett Level supervision required Bed Mobility Goal, Additional Goal adheres to psternal precautions for transfer Goal: Gait Training Goal Stand Alone Therapy Goal Outcome: Ongoing (Interventions Implemented as Appropriate) 07/12/17 1225 Gait Training Goal Gait Training Goal, Date Established 07/12/17 Gait Training Goal, Time to Achieve 2 - 3 days Gait Training Goal, Garrett Level supervision required Gait Training Goal, Assist [...] 3 days Transfer Training Goal, Activity Type tai-yn-wociv/hwsvm-pw-dkm;pck-td-rhuey/zyhrv-ne-pvx;toilet Transfer Train Goal, Garrett Level supervision required Transfer Training Goal, Additional Goal adheres to sternal precautions during transfer Consult Note - Octavia Vaughn RN - 07/12/2017 10:50 AM EST [facility] [place] CARDIAC REHABILITATION Gregory Hoang was seen today regarding participation in the outpatient Phase 2 Cardiac Rehabilitation at [facility]. The patient agrees to [...] IV site, amio to other piv and BURGLAR ALARM INSPECTOR at bedside to help assess, IV removed. [...] Outcome: Ongoing (Interventions Implemented as Appropriate) 07/11/17199907/11/17200907/12/[address] [facility] Daily Care Interventions Self-Care Promotion [...] staff, he stood and marched in place. Parker weak, wanting to sit back down. Remained [...] Outcome: Ongoing (Interventions Implemented as Appropriate) 07/05/17 9929 Mutuality/Individual Preferences What Anxieties, Fears or Concerns [...] Health/Prescription Coverage: Primary Insurance: MEDICARE Secondary Insurance: [employer] [place] Prescription Coverage: yes Preferred Pharmacy: [facility] [place] Other: none Primary Care Provider: Lovely Vicente MD [phone] Patient/Caregiver Goals of Treatment:live and get my breath back Potential Needs for Transition of Care: [facility]hab[facility]SNF[facility] Home Health: NA DME: TBD Dialysis: na Community Resources: available Transportation: yes Other: none Anticipated Barriers to Discharge/Special Considerations: none Plan: Likely SNF Rehab before home A member of the Care Management team will continue to monitor progress, follow for continuity of care and assist with transition of care planning. ERLIN Weiss Pager: [phone] Consult Note - Katerin Azul RN - [...] patient W/E coverage, Dr. Jeane Tatum, pager [phone] Katerin Patel. STACIE Azul Endocrinology Diabetes Management Pager [phone] Plan of Care - Stephanie Godoy RN [...] Operative Note Patient Name: Gregory Hoang : [id number] MR#: [id number] Case Date: 07/07/2017 Surgeon: Surgeon(s) and Role: * Yuan Webber MD - Primary * Michael Drake PA - Physician Office Systems Technology Instructor * Linda Flores PA - Physician Office Systems Technology Instructor Preoperative diagnosis: 3VD Postoperative diagnosis: CAD, severe [...] need to include opening and closing). YUAN EWBBER MD 07/07/2017 Brief Op Note - Yuan Webber MD - 07/07/2017 5:55 PM EST Brief Operative Note Patient Name: Gregory Hoang : [id number] MR#: [id number] Case Date: 07/07/2017 Surgeon: Surgeon(s) and Role: * Yuan Webber MD - Primary * Michael Drake PA - Physician Office Systems Technology Instructor * Linda Flores PA - Physician Office Systems Technology Instructor Preoperative diagnosis: 3VD Postoperative diagnosis: CAD, severe [...] major CV events such as , stroke, PA, repeat revascularization compared to PCI). In this [...] code status: Full Code Katty Jovani, MS3 [facility] Cardiology S1 (Pager [phone]) Plan of Care - Emelia Ibarra RN [...] hospital and ruled infor non-ST segment elevation PA. This almost certainly represents the residual of [...] [facility] ENDOSCOPY ??? PRO THYROIDECTOMY 03/28/2013 THYROIDECTOMY, TOTAL OR COMPLETE performed by Manny Mcknight MD at [facility] MAIN OR Social History: Social [...] with other involved physicians Yuan Webber MD [phone] Med Student Progress Note - Jovani Katty [...] major CV events such as , stroke, PA, repeat revascularization compared to PCI). In this [...] or BiPAP - s/p lasix in the confectionery laboratory manager, was net -1.5L - s/p plavix load, [...] Katty Hahn, M3 [facility] Cardiology S1 (Pager [phone]) Plan of Care - Stephanie Godoy RN [...] in urinal without difficulty. 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 Pt [...] Nobles MD [facility] CARDIOLOGY [place], [place] [address] ( lissa) 06/10/2022 Office Visit Dermatology Laura Scherer MD [facility] [address] [place], [place] [address] (Wo lissa) Scheduled Orders Name [...] procedure are i n the results section. DEFLASH AND WASH OPERATOR SCAN 07/15/2017 12:00 Res ults for [...] Routine 07/08/2017 4:00 Results f or this ([facility] [...] Yes 07/07/2017 1:35 CAD [facility] PM EST 7.93) @CABG, USING ARTERIAL Yes [...] Routine 07/05/2017 8:20 Results f or this ([facility] [...] [facility]) PM EST procedure are i n the [...] [place] at 08/19/2017 10:30 AM Martha Teague CUSTOMER SUPPORT COORDINATOR IMG DX ORDERABLES SCAN DOC: DEFLASH AND WASH OPERATOR (07/15/2017 12:00 AM EST) Narrative 07/15/2017 [...] Signature POC Glucose 186 65 - 199 [facility] Comment: Supplemental ranges: <140 mg/dL before meals <180 mg/dL all other times of the day Specimen Anatomical Collection Method Collection Time Receive d Time (Source) Location / / Volume Laterality Blood specimen 07/14/2017 11:56 7 (specimen) AM EST 11:56 AM EST Yuan Webber MD POINT OF CARE TEST ORDERABLE S Performing Organization Address City/State/[place] [address] POCT Glucose (07/14/2017 7:52 AM EST) athologist Signature POC Glucose 126 65 - 199 [facility] mg/dL [facility] Comment: Supplemental ranges: <140 mg/dL before meals <180 mg/dL all other times of the day Specimen Anatomical Collection Method Collection Time Receive d Time (Source) Location / / Volume Laterality Blood specimen 07/14/2017 7:52 AM 017 7:52 (specimen) EST AM EST Yuan Webber MD POINT OF CARE TEST ORDERABLE S Performing Organization Address City/State/[place] [address] (ABNORMAL) Prothrombin Time (07/14/2017 4:46 AM EST) P athologist Signature PT 26.4 (H) 11.8 - 14.0 [facility] LABORATORY INR 2.4 (H) 0.9 - 1.1 [facility] [...] Wilson APRN HEMATOLOGY ORDERABLES Performing Organization Address City/[facility]/[place] [address] Potassium (07/14/2017 4:46 AM EST) athologist Signature Pot[facility] 4.3 3.5 - 5.0 [facility]L [facility] Comment: Please note: ??Patients [...] Wilson APRN CHEMISTRY ORDERABLES Performing Organization Address City/[facility]/[place] [address] POCT Glucose (07/14/2017 4:34 AM EST) athologist Signature POC Glucose 115 65 - 199 [facility] Comment: Supplemental ranges: <140 [...] [facility]/ZIP Code Phon e Number [address] POCT Glucose (07/13/2017 11:33 PM EST) athologist Signature POC Glucose 132 65 - 199 [facility] [place] mg/dL [facility] Comment: Supplemental ranges: <140 mg/dL before meals <180 mg/dL all other times of the day Specimen Anatomical Collection Method Collection Time Receive d Time (Source) Location / / Volume Laterality Blood specimen 07/13/2017 11:33 7 (specimen) PM EST 11:33 PM EST Yuan Webber MD POINT OF CARE TEST ORDERABLE S Performing Organization Address City/State/[place] [address] POCT Glucose (07/13/2017 9:25 PM EST) athologist Signature POC Glucose 121 65 - 199 [place] mg/dL [facility] Comment: Supplemental ranges: <140 mg/dL before meals <180 mg/dL all other times of the day Specimen Anatomical Collection Method Collection Time Receive d Time (Source) Location / / Volume Laterality Blood specimen 07/13/2017 9:25 PM 017 9:25 (specimen) EST PM EST Yuan Webber MD POINT OF CARE TEST ORDERABLE S Performing Organization Address City/State/[place] [address] POCT Glucose (07/13/2017 4:55 PM EST) athologist Signature POC Glucose 79 65 - 199 [place] mg/dL [facility] Comment: Supplemental ranges: <140 mg/dL before meals <180 mg/dL all other times of the day Specimen Anatomical Collection Method Collection Time Receive d Time (Source) Location / / Volume Laterality Blood specimen 07/13/2017 4:55 PM 017 4:55 (specimen) EST PM EST Yuan Webber MD POINT OF CARE TEST ORDERABLE S Performing Organization Address City/State/[place] [address] POCT Glucose (07/13/2017 11:16 AM EST) athologist Signature POC Glucose 163 65 - 199 [facility] [place] mg/dL [facility] Comment: Supplemental ranges: <140 mg/dL before meals <180 mg/dL all other times of the day Specimen Anatomical Collection Method Collection Time Receive d Time (Source) Location / / Volume Laterality Blood specimen 07/13/2017 11:16 7 (specimen) AM EST 11:16 AM EST Yuan Webber MD POINT OF CARE TEST ORDERABLE S Performing Organization Address City/State/[place] [address] POCT Glucose (07/13/2017 8:07 AM EST) athologist Signature POC Glucose 96 65 - 199 [facility] mg/dL [facility] Comment: Supplemental ranges: <140 [...] [facility]/[place] [address] (ABNORMAL) Prothrombin Time (07/13/2017 4:26 AM EST) athologist Signature PT 20.8 (H) 11.8 - 14.0 [facility] LABORATORY INR 1.8 (H) 0.9 - 1.1 [facility] [...] Organization Address City/State/[place] [address] (ABNORMAL) Basic Metabolic Panel (non-fasting) (07/13/2017 4:26 AM EST) athologist Signature Glucose Lvl 95 65 - 199 [facility] mg/dL [facility] Comment: Diabetes: >=200 mg/dL plus symp toms BUN 25 (H) 10 - 20 mg/dL [facility] Creatinine 1.19 0.80 - 1.50 mg/dL [facility] Sodium 143 135 - 145 mmol/L [facility] Potassium 3.7 3.5 - 5.0 mmol/L [facility] [...] Calcium 7.7 (L) 8.5 - 10.5 mg/dL [facility] Estimated GFR 60 >=60 [facility] Comment: The reported eGFR should be multiplied b y 1.2 for patients. The MDRD is not an appropriate measure o f renal function for patients with body mass extremes or in patients with acute kidney failure. http://PAIEON.Engagor/DHnkdep http://Compassoft/DHMCnkf Specimen Anatomical Collection Method Collection Time Receive d Time (Source) Location / / Volume Laterality Blood specimen 07/13/2017 4:26 AM 017 4:46 (specimen) EST AM EST Resulting Agency Comment Spec In Lab Makayla Wilson APRN CHEMISTRY ORDERABLES Performing Organization Address City/State/ZIP [place] [address] POCT Glucose (07/13/2017 3:52 AM EST) athologist Signature POC Glucose 93 65 - 199 [facility] mg/dL [facility] Comment: Supplemental ranges: <140 mg/dL before meals <180 mg/dL all other times of the day Specimen Anatomical Collection Method Collection Time Receive d Time (Source) Location / / Volume Laterality Blood specimen 07/13/2017 3:52 AM 017 3:52 (specimen) EST AM EST Yuan Webber MD POINT OF CARE TEST ORDERABLE S Performing Organization Address City/State/[place] [address] POCT Glucose (07/13/2017 12:21 AM EST) athologist Signature POC Glucose 80 65 - 199 [place] mg/dL [facility] Comment: Supplemental ranges: <140 mg/dL before meals <180 mg/dL all other times of the day Specimen Anatomical Collection Method Collection Time Receive d Time (Source) Location / / Volume Laterality Blood specimen 07/13/2017 12:21 7 (specimen) AM EST 12:21 AM EST Yuan Webber MD POINT OF CARE TEST ORDERABLE S Performing Organization Address City/State/ZIP Code Phon e Number [address] POCT Glucose (07/12/2017 8:22 PM EST) athologist Signature POC Glucose 119 65 - 199 [place] mg/dL [facility] Comment: Supplemental ranges: <140 mg/dL before meals <180 mg/dL all other times of the day Specimen Anatomical Collection Method Collection Time Receive d Time (Source) Location / / Volume Laterality Blood specimen 07/12/2017 8:22 PM 017 8:22 (specimen) EST PM EST Yuan Webber MD POINT OF CARE TEST ORDERABLE S Performing Organization Address City/State/ZIP Code Phon e Number [address] POCT Glucose (07/12/2017 4:02 PM EST) athologist Signature POC Glucose 114 65 - 199 [facility] [place] mg/dL [facility] Comment: Supplemental ranges: <140 mg/dL before meals <180 mg/dL all other times of the day Specimen Anatomical Collection Method Collection Time Receive d Time (Source) Location / / Volume Laterality Blood specimen 07/12/2017 4:02 PM 017 4:02 (specimen) EST PM EST Yuan Webber MD POINT OF CARE TEST ORDERABLE S Performing Organization Address City/State/[place] [address] POCT Glucose (07/12/2017 11:28 AM EST) athologist Signature POC Glucose 164 65 - 199 [place] mg/dL [facility] Comment: Supplemental ranges: <140 mg/dL before meals <180 mg/dL all other times of the day Specimen Anatomical Collection Method Collection Time Receive d Time (Source) Location / / Volume Laterality Blood specimen 07/12/2017 11:28 7 (specimen) AM EST 11:28 AM EST Yuan Webber MD POINT OF CARE TEST ORDERABLE S Performing Organization Address City/State/[place] [address] POCT Glucose (07/12/2017 7:34 AM EST) athologist Signature POC Glucose 109 65 - 199 [place] mg/dL [facility] Comment: Supplemental ranges: <140 mg/dL before meals <180 mg/dL all other times of the day Specimen Anatomical Collection Method Collection Time Receive d Time (Source) Location / / Volume Laterality Blood specimen 07/12/2017 7:34 AM 017 7:34 (specimen) EST AM EST Yuan Webber MD POINT OF CARE TEST ORDERABLE S Performing Organization Address City/State/[place] [address] (ABNORMAL) Basic Metabolic Panel (non-fasting) (07/12/2017 4:11 AM EST) athologist Signature Glucose Lvl 92 65 - 199 [place] mg/dL [facility] Comment: Diabetes: >=200 mg/dL plus symp toms BUN 31 (H) 10 - 20 mg/dL [facility] Creatinine 1.23 0.80 - 1.50 mg/dL [facility] Sodium 145 135 - 145 mmol/L [facility] Potassium Not Perf 3.5 - 5.0 mmol/L [facility] Comment: Duplicate order Please note: ??Patients with WBC >100,00 0 may have falsely elevated Potassium levels. ??For accurate Potassium quantif ication in these patients send serum separator tube (gold top) for subsequent determinations. ??Contact the Clinical Chemistry Laboratory if there are any qu estions. Chloride 106 98 - 107 mmol/L [facility] CO2 Not Perf 22 - 31 mmol/L [facility] Comment: Add-on request. Sample too old to perform test. Anion Gap Not Calculated 5 - 15 mmol/L [facility] Calcium 8.1 (L) 8.5 - 10.5 mg/dL [facility] Estimated GFR 58 (L) >=60 [facility] Comment: The reported eGFR should be multiplied b y 1.2 for patients. The MDRD is not an appropriate measure o f renal function for patients with body mass extremes or in patients with acute kidney failure. http://PAIEON.Engagor/DHnkdep http://Compassoft/DHMCnkf Specimen Anatomical Collection Method Collection Time Receive d Time (Source) Location / / Volume Laterality Blood specimen 07/12/2017 4:11 AM 017 8:57 (specimen) EST AM EST Resulting Agency Comment Spec In Lab Makayla Wilson APRN CHEMISTRY ORDERABLES Performing Organization Address City/State/ZIP [place] [address] (ABNORMAL) Prothrombin Time (07/12/2017 4:11 AM EST) P athologist Signature PT 15.4 (H) 11.8 - 14.0 [facility] LABORATORY INR 1.2 (H) 0.9 - [...] [facility]/ZIP Code Phon e Number [address] Potassium (07/12/2017 4:11 AM EST) athologist Signature Potassium 3.8 3.5 - 5.0 [facility] mmol/L [facility] Comment: Please note: ??Patients [...] Wilson STACIE CHEMISTRY ORDERABLES Performing Organization Address City/[facility]/[place] [address] POCT Glucose (07/12/2017 4:10 AM EST) athologist Signature POC Glucose 90 65 - 199 [facility] mg/dL [facility] Comment: Supplemental ranges: <140 mg/dL before meals <180 mg/dL all other times of the day Specimen Anatomical Collection Method Collection Time Receive d Time (Source) Location / / Volume Laterality Blood specimen 07/12/2017 4:10 AM 017 4:10 (specimen) EST AM EST Yuan Webber MD POINT OF CARE TEST ORDERABLE S Performing Organization Address City/State/[place] [address] POCT Glucose (07/11/2017 11:57 PM EST) athologist Signature POC Glucose 98 65 - 199 [facility] Comment: Supplemental ranges: <140 [...] [facility]/[place] [address] POCT Glucose (07/11/2017 8:32 PM EST) athologist Signature POC Glucose 146 65 - 199 [facility] mg/dL [facility] Comment: Supplemental ranges: <140 mg/dL before meals <180 mg/dL all other times of the day Specimen Anatomical Collection Method Collection Time Receive d Time (Source) Location / / Volume Laterality Blood specimen 07/11/2017 8:32 PM 017 8:32 (specimen) EST PM EST Yuan Webber MD POINT OF CARE TEST ORDERABLE S Performing Organization Address City/State/[place] [address] XR Chest PA & [...] e xtubated, left chest tube removed, and Toomsuba-Suzi catheter removed since the study. Atelectasis at [...] e xtubated, left chest tube removed, and Toomsuba-Suzi catheter removed since the study. Atelectasis at [...] POC Glucose 223 (H) 65 - 199 [facility] mg/dL [facility] Comment: Supplemental ranges: <140 mg/dL before meals <180 mg/dL all other times of the day Specimen Anatomical Collection Method Collection Time Receive d Time (Source) Location / / Volume Laterality Blood specimen 07/11/2017 4:05 PM 017 4:05 (specimen) EST PM EST Yuan Webber MD POINT OF CARE TEST ORDERABLE S Performing Organization Address City/State/ZIP [place] [address] POCT Glucose (07/11/2017 11:55 AM EST) athologist Signature POC Glucose 176 65 - 199 [facility] mg/dL [facility] Comment: Supplemental ranges: <140 mg/dL before meals <180 mg/dL all other times of the day Specimen Anatomical Collection Method Collection Time Receive d Time (Source) Location / / Volume Laterality Blood specimen 07/11/2017 11:55 7 (specimen) AM EST 11:55 AM EST Yuan Webber MD POINT OF CARE TEST ORDERABLE S Performing Organization Address City/State/[place] [address] POCT Glucose (07/11/2017 7:53 AM EST) athologist Signature POC Glucose 189 65 - 199 [place] mg/dL [facility] Comment: Supplemental ranges: <140 mg/dL before meals <180 mg/dL all other times of the day Specimen Anatomical Collection Method Collection Time Receive d Time (Source) Location / / Volume Laterality Blood specimen 07/11/2017 7:53 AM 017 7:53 (specimen) EST AM EST Yuan Webber MD POINT OF CARE TEST ORDERABLE S Performing Organization Address City/State/[place] [address] POCT Glucose (07/11/2017 4:22 AM EST) athologist Signature POC Glucose 151 65 - 199 [place] mg/dL [facility] Comment: Supplemental ranges: <140 mg/dL before meals <180 mg/dL all other times of the day Specimen Anatomical Collection Method Collection Time Receive d Time (Source) Location / / Volume Laterality Blood specimen 07/11/2017 4:22 AM 017 4:22 (specimen) EST AM EST Yuan Webber MD POINT OF CARE TEST ORDERABLE S Performing Organization Address City/State/ZIP Code Phon e Number [address] Potassium (07/11/2017 2:20 AM EST) athologist Signature Potassium 4.5 3.5 - 5.0 [facility] mmol/L [facility] Comment: Please note: ??Patients [...] Address City/State/ZIP Code Phon e Number [address] POCT Glucose (07/11/2017 12:17 AM EST) athologist Signature POC Glucose 162 65 - 199 [facility] mg/dL [facility] Comment: Supplemental ranges: <140 [...] [facility]/ZIP Code Phon e Number [address] POCT Glucose (07/10/2017 8:47 PM EST) athologist Signature POC Glucose 191 65 - 199 [facility] mg/dL [facility] Comment: Supplemental ranges: <140 mg/dL before meals <180 mg/dL all other times of the day Specimen Anatomical Collection Method Collection Time Receive d Time (Source) Location / / Volume Laterality Blood specimen 07/10/2017 8:47 PM 017 8:47 (specimen) EST PM EST Yuan Webber MD POINT OF CARE TEST ORDERABLE S Performing Organization Address City/[facility]/ZIP [facility] Phon e Number [address] POCT Glucose (07/10/2017 4:06 PM EST) athologist Signature POC Glucose 131 65 - 199 [place] mg/dL [facility] Comment: Supplemental ranges: <140 mg/dL before meals <180 mg/dL all other times of the day Specimen Anatomical Collection Method Collection Time Receive d Time (Source) Location / / Volume Laterality Blood specimen 07/10/2017 4:06 PM 017 4:06 (specimen) EST PM EST Yuan Webber MD POINT OF CARE TEST ORDERABLE S Performing Organization Address City/State/ZIP Code Phon e Number [address] POCT Glucose (07/10/2017 3:08 PM EST) athologist Signature POC Glucose 151 65 - 199 [place] [facility] mg/dL [facility] Comment: Supplemental ranges: <140 mg/dL before meals <180 mg/dL all other times of the day Specimen Anatomical Collection Method Collection Time Receive d Time (Source) Location / / Volume Laterality Blood specimen 07/10/2017 3:08 PM 017 3:08 (specimen) EST PM EST Yuan Webber MD POINT OF CARE TEST ORDERABLE S Performing Organization Address City/State/ZIP Code Phon e Number [address] POCT Glucose (07/10/2017 2:25 PM EST) athologist Signature POC Glucose 146 65 - 199 [place] mg/dL [facility] Comment: Supplemental ranges: <140 mg/dL before meals <180 mg/dL all other times of the day Specimen Anatomical Collection Method Collection Time Receive d Time (Source) Location / / Volume Laterality Blood specimen 07/10/2017 2:25 PM 017 2:25 (specimen) EST PM EST Yuan Webber MD POINT OF CARE TEST ORDERABLE S Performing Organization Address City/State/ZIP Code Phon e Number [address] POCT Glucose (07/10/2017 1:23 PM EST) athologist Signature POC Glucose 166 65 - 199 [place] mg/dL [facility] Comment: Supplemental ranges: <140 mg/dL before meals <180 mg/dL all other times of the day Specimen Anatomical Collection Method Collection Time Receive d Time (Source) Location / / Volume Laterality Blood specimen 07/10/2017 1:23 PM 017 1:23 (specimen) EST PM EST Yuan Webber MD POINT OF CARE TEST ORDERABLE S Performing Organization Address City/State/[place] [address] POCT Glucose (07/10/2017 11:52 AM EST) P athologist Signature POC Glucose 157 65 - 199 [facility] mg/dL [facility] Comment: Supplemental ranges: <140 mg/dL before meals <180 mg/dL all other times of the day Specimen Anatomical Collection Method Collection Time Receive d Time (Source) Location / / Volume Laterality Blood specimen 07/10/2017 11:52 7 (specimen) AM EST 11:52 AM EST Yuan Webber MD POINT OF CARE TEST ORDERABLE S Performing Organization Address City/State/[place] [address] POCT Glucose (07/10/2017 11:01 AM EST) P athologist Signature POC Glucose 158 65 - 199 [place] mg/dL [facility] Comment: Supplemental ranges: <140 mg/dL before meals <180 mg/dL all other times of the day Specimen Anatomical Collection Method Collection Time Receive d Time (Source) Location / / Volume Laterality Blood specimen 07/10/2017 11:01 7 (specimen) AM EST 11:01 AM EST Yuan Webber MD POINT OF CARE TEST ORDERABLE S Performing Organization Address City/State/ZIP Code Phon e Number [address] POCT Glucose (07/10/2017 9:54 AM EST) P athologist Signature POC Glucose 160 65 - 199 [facility] mg/dL [facility] Comment: Supplemental ranges: <140 mg/dL before meals <180 mg/dL all other times of the day Specimen Anatomical Collection Method Collection Time Receive d Time (Source) Location / / Volume Laterality Blood specimen 07/10/2017 9:54 AM 017 9:54 (specimen) EST AM EST Yuan Webber MD POINT OF CARE TEST ORDERABLE S Performing Organization Address City/State/ZIP Code Phon e Number [address] POCT Glucose (07/10/2017 8:58 AM EST) athologist Signature POC Glucose 183 65 - 199 [place] mg/dL [facility] Comment: Supplemental ranges: <140 mg/dL before meals <180 mg/dL all other times of the day Specimen Anatomical Collection Method Collection Time Receive d Time (Source) Location / / Volume Laterality Blood specimen 07/10/2017 8:58 AM 017 8:58 (specimen) EST AM EST Yuan Webber MD POINT OF CARE TEST ORDERABLE S Performing Organization Address City/State/ZIP Code Phon e Number [address] [address] POCT Glucose (07/10/2017 8:01 AM EST) athologist Signature POC Glucose 173 65 - 199 KATALINA RYAN mg/dL [facility] Comment: Supplemental ranges: <140 mg/dL before meals <180 mg/dL all other times of the day Specimen Anatomical Collection Method Collection Time Receive d Time (Source) Location / / Volume Laterality Blood specimen 07/10/2017 8:01 AM 017 8:01 (specimen) EST AM EST Yuan Webber MD POINT OF CARE TEST ORDERABLE S Performing Organization Address City/State/[place] [address] POCT Glucose (07/10/2017 7:05 AM EST) athologist Signature POC Glucose 166 65 - 199 KATALINA RYAN mg/dL [facility] Comment: Supplemental ranges: <140 mg/dL before meals <180 mg/dL all other times of the day Specimen Anatomical Collection Method Collection Time Receive d Time (Source) Location / / Volume Laterality Blood specimen 07/10/2017 7:05 AM 017 7:05 (specimen) EST AM EST Yuan Webber MD POINT OF CARE TEST ORDERABLE S Performing Organization Address City/State/[place] [address] POCT Glucose (07/10/2017 6:00 AM EST) P athologist Signature POC Glucose 162 65 - 199 [facility] mg/dL [facility] Comment: Supplemental ranges: <140 mg/dL before meals <180 mg/dL all other times of the day Specimen Anatomical Collection Method Collection Time Receive d Time (Source) Location / / Volume Laterality Blood specimen 07/10/2017 6:00 AM 017 6:00 (specimen) EST AM EST Yuan Webber MD POINT OF CARE TEST ORDERABLE S Performing Organization Address City/State/[place] [address] (ABNORMAL) Differential, Automated (07/10/2017 4:28 AM EST) Patholo gist Method Time Signature Neutrophils % 87.9 % [facility] LABORATORY Neutr Abs (ANC) 10.70 (H) 1.70 - [facility] 6.10 [facility] x10(3)/[facility] L LABORATORY Lymphocytes % 3.9 % [facility] LABORATORY Lymphocytes Abs 0.5 (L) 0.9 - 3.2 [facility] x10(3)/[facility] LABORATORY Monocytes % 7.0 % [facility] LABORATORY Monocyte Abs 0.8 0.3 - 0.9 [facility] x10(3)/[facility] LABORATORY Eosinophils % 0.3 % [facility] LABORATORY Eosinophils Abs 0.0 0.0 - 0.4 [facility] x10(3)/[facility] LABORATORY Basophils % 0.2 % [facility] LABORATORY Basophils Abs 0.0 0.0 - 0.1 [facility] x10(3)/[facility] LABORATORY Immature Gran % 0.70 % [facility] [...] Gran Abs 0.08 (H) 0.00 - 0.04 x10(3)/[facility] LABORATORY Specimen Anatomical Collection Method Collection Time Receive d Time (Source) Location / / Volume Laterality Blood specimen 07/10/2017 4:28 AM 017 4:36 (specimen) EST AM EST Resulting Agency Comment Spec In Lab Yuan Webber MD HEMATOLOGY ORDERABLES Performing Organization Address City/State/[place] [id number] (ABNORMAL) Hemogram (07/10/2017 4:28 AM EST) Analysis Performed At Patho logist Time Signature WBC 12.2 (H) 4.0 - 9.5 [facility] x10(3)/[facility] LABORATORY RBC 3.31 (L) 4.58 - [facility] 5.54 [facility] x10(6)/[facility] LABORATORY Hemoglobin 9.8 (L) 13.7 - [facility] 16.5 gm/dL [facility] Hematocrit 30.0 (L) 40.5 - [facility] 48.5 % [facility] MCV 90.6 82.9 - [facility] 93.[address] [facility] LABORATORY MCH 29.6 27.5 - KATALINA RYAN 32.1 pg [facility]AT[facility] MCHC 32.7 32.0 - [facility] 35.7 gm/dL [facility] Platelets 135 (L) 145 - 357 [facility] x10(3)/[facility] LABORATORY RDWSD 50.8 (H) 36.0 - [facility] 45.0 [facility] RDWCV 15.4 (H) 11.4 - [facility] 13.8 % [facility] LABORATORY MPV 10.0 7.6 - 12.9 [facility] LABORATORY nRBC % Auto 0.0 % [facility] LABORATORY nRBC Abs Auto 0.000 0.000 - [facility] 0.000 [facility] x10(3)/[facility] LABORATORY Specimen Anatomical Collection Method Collection Time Receive d Time (Source) Location / / Volume Laterality Blood specimen 07/10/2017 4:28 AM 017 4:36 (specimen) EST AM EST Resulting Agency Comment Spec In Lab Yuan Webber MD HEMATOLOGY ORDERABLES Performing Organization Address City/State/ZIP [place] [address] (ABNORMAL) Basic Metabolic Panel (non-fasting) (07/10/2017 4:28 AM EST) P athologist Signature Glucose Lvl 178 65 - 199 [facility] mg/dL [facility] Comment: Diabetes: >=200 mg/dL plus symp toms BUN 20 10 - 20 mg/dL [facility] LABORATORY Creatinine 1.19 0.80 - 1.50 mg/dL [facility] [...] estions. Chloride 107 98 - 107 mmol/L [facility]OR[facility] CO2 21 (L) 22 - 31 mmol/L [facility]ORAT[facility] Anion Gap 15 5 - 15 mmol/L [facility] Calcium 7.4 (L) 8.5 - 10.5 mg/dL [facility] LABORATORY Estimated GFR 60 >=60 [facility] Comment: The reported eGFR should be multiplied b y 1.2 for patients. The MDRD is not an appropriate measure o f renal function for patients with body mass extremes or in patients with acute kidney failure. [email or web address] Specimen Anatomical Collection Method Collection Time Receive d Time (Source) Location / / Volume Laterality Blood specimen 07/10/2017 4:28 AM 017 4:36 (specimen) EST AM EST Resulting Agency Comment Spec In Lab Yuan Webber MD CHEMISTRY ORDERABLES Performing Organization Address City/State/ZIP Code Phon e Number [address] POCT Glucose (07/10/2017 4:26 AM EST) athologist Signature POC Glucose 176 65 - 199 KATALINA RYAN mg/dL [facility] Comment: Supplemental ranges: <140 [...] [facility]/[place] [address] (ABNORMAL) POCT Glucose (07/10/2017 3:06 AM EST) athologist Signature POC Glucose 204 (H) 65 - 199 KATALINA RYAN mg/dL [facility] Comment: Supplemental ranges: <140 [...] [facility]/[place] [address] (ABNORMAL) POCT Glucose (07/10/2017 2:10 AM EST) athologist Signature POC Glucose 203 (H) 65 - 199 KATALINA RYAN mg/dL [facility] Comment: Supplemental ranges: <140 mg/dL before meals <180 mg/dL all other times of the day Specimen Anatomical Collection Method Collection Time Receive d Time (Source) Location / / Volume Laterality Blood specimen 07/10/2017 2:10 AM 017 2:10 (specimen) EST AM EST Yuan Webber MD POINT OF CARE TEST ORDERABLE S Performing Organization Address City/State/ZIP Code Phon e Number [address] POCT Glucose (07/10/2017 1:09 AM EST) P athologist Signature POC Glucose 196 65 - 199 [place] mg/dL [facility] Comment: Supplemental ranges: <140 mg/dL before meals <180 mg/dL all other times of the day Specimen Anatomical Collection Method Collection Time Receive d Time (Source) Location / / Volume Laterality Blood specimen 07/10/2017 1:09 AM 017 1:09 (specimen) EST AM EST Yuan Webber MD POINT OF CARE TEST ORDERABLE S Performing Organization Address City/State/ZIP Code Phon e Number [address] POCT Glucose (07/10/2017 12:10 AM EST) athologist Signature POC Glucose 173 65 - 199 KATALINA ZHAORYAN mg/dL [facility] Comment: Supplemental ranges: <140 mg/dL before meals <180 mg/dL all other times of the day Specimen Anatomical Collection Method Collection Time Receive d Time (Source) Location / / Volume Laterality Blood specimen 07/10/2017 12:10 7 (specimen) AM EST 12:10 AM EST Yuan Webber MD POINT OF CARE TEST ORDERABLE S Performing Organization Address City/State/ZIP Code Phon e Number [address] POCT Glucose (07/09/2017 11:01 PM EST) athologist Signature POC Glucose 140 65 - 199 KATALINA RYAN mg/dL [facility] Comment: Supplemental ranges: <140 mg/dL before meals <180 mg/dL all other times of the day Specimen Anatomical Collection Method Collection Time Receive d Time (Source) Location / / Volume Laterality Blood specimen 07/09/2017 11:01 7 (specimen) PM EST 11:01 PM EST Yuan Webber MD POINT OF CARE TEST ORDERABLE S Performing Organization Address City/State/[place] [address] POCT Glucose (07/09/2017 10:05 PM EST) athologist Signature POC Glucose 144 65 - 199 KATALINA ZHAORYAN mg/dL [facility] Comment: Supplemental ranges: <140 mg/dL before meals <180 mg/dL all other times of the day Specimen Anatomical Collection Method Collection Time Receive d Time (Source) Location / / Volume Laterality Blood specimen 07/09/2017 10:05 7 (specimen) PM EST 10:05 PM EST Yuan Webber MD POINT OF CARE TEST ORDERABLE S Performing Organization Address City/State/ZIP Code Phon e Number [address] POCT Glucose (07/09/2017 9:31 PM EST) athologist Signature POC Glucose 121 65 - 199 KATALINA RYAN mg/dL [facility] Comment: Supplemental ranges: <140 mg/dL before meals <180 mg/dL all other times of the day Specimen Anatomical Collection Method Collection Time Receive d Time (Source) Location / / Volume Laterality Blood specimen 07/09/2017 9:31 PM 017 9:31 (specimen) EST PM EST Yuan Webber MD POINT OF CARE TEST ORDERABLE S Performing Organization Address City/State/ZIP Code Phon e Number [address] POCT Glucose (07/09/2017 9:03 PM EST) athologist Signature POC Glucose 98 65 - 199 KATALINA RYAN mg/dL [facility] Comment: Supplemental ranges: <140 mg/dL before meals <180 mg/dL all other times of the day Specimen Anatomical Collection Method Collection Time Receive d Time (Source) Location / / Volume Laterality Blood specimen 07/09/2017 9:03 PM 017 9:03 (specimen) EST PM EST Yuan Webber MD POINT OF CARE TEST ORDERABLE S Performing Organization Address City/State/[place] [address] POCT Glucose (07/09/2017 8:09 PM EST) athologist Signature POC Glucose 117 65 - 199 KATALINA RYAN mg/dL [facility] Comment: Supplemental ranges: <140 mg/dL before meals <180 mg/dL all other times of the day Specimen Anatomical Collection Method Collection Time Receive d Time (Source) Location / / Volume Laterality Blood specimen 07/09/2017 8:09 PM 017 8:09 (specimen) EST PM EST Yuan Webber MD POINT OF CARE TEST ORDERABLE S Performing Organization Address City/State/[place] [address] POCT Glucose (07/09/2017 5:40 PM EST) athologist Signature POC Glucose 155 65 - 199 KATALINA RYAN mg/dL [facility] Comment: Supplemental ranges: <140 mg/dL before meals <180 mg/dL all other times of the day Specimen Anatomical Collection Method Collection Time Receive d Time (Source) Location / / Volume Laterality Blood specimen 07/09/2017 5:40 PM 017 5:40 (specimen) EST PM EST Yuan Webber MD POINT OF CARE TEST ORDERABLE S Performing Organization Address City/State/[place] [address] POCT Glucose (07/09/2017 4:24 PM EST) athologist Signature POC Glucose 164 65 - 199 KATALINA RYAN mg/dL [facility] Comment: Supplemental ranges: <140 mg/dL before meals <180 mg/dL all other times of the day Specimen Anatomical Collection Method Collection Time Receive d Time (Source) Location / / Volume Laterality Blood specimen 07/09/2017 4:24 PM 017 4:24 (specimen) EST PM EST Yuan Webber MD POINT OF CARE TEST ORDERABLE S Performing Organization Address City/State/[place] [address] POCT Glucose (07/09/2017 3:19 PM EST) athologist Signature POC Glucose 166 65 - 199 KATALINA RYAN mg/dL [facility] Comment: Supplemental ranges: <140 mg/dL before meals <180 mg/dL all other times of the day Specimen Anatomical Collection Method Collection Time Receive d Time (Source) Location / / Volume Laterality Blood specimen 07/09/2017 3:19 PM 017 3:19 (specimen) EST PM EST Yuan Webber MD POINT OF CARE TEST ORDERABLE S Performing Organization Address City/State/[place] [address] POCT Glucose (07/09/2017 2:26 PM EST) athologist Signature POC Glucose 179 65 - 199 KATALINA ZHAORYAN mg/dL [facility] Comment: Supplemental ranges: <140 mg/dL before meals <180 mg/dL all other times of the day Specimen Anatomical Collection Method Collection Time Receive d Time (Source) Location / / Volume Laterality Blood specimen 07/09/2017 2:26 PM 017 2:26 (specimen) EST PM EST Yuan Webber MD POINT OF CARE TEST ORDERABLE S Performing Organization Address City/State/[place] [address] (ABNORMAL) POCT Glucose (07/09/2017 1:29 PM EST) athologist Signature POC Glucose 210 (H) 65 - 199 KATALINA RYAN mg/dL [facility] Comment: Supplemental ranges: <140 mg/dL before meals <180 mg/dL all other times of the day Specimen Anatomical Collection Method Collection Time Receive d Time (Source) Location / / Volume Laterality Blood specimen 07/09/2017 1:29 PM 017 1:29 (specimen) EST PM EST Yuan Webber MD POINT OF CARE TEST ORDERABLE S Performing Organization Address City/State/ZIP Code Phon e Number [address] POCT Glucose (07/09/2017 12:20 PM EST) P athologist Signature POC Glucose 172 65 - 199 KATALINA RYAN mg/dL [facility] Comment: Supplemental ranges: <140 mg/dL before meals <180 mg/dL all other times of the day Specimen Anatomical Collection Method Collection Time Receive d Time (Source) Location / / Volume Laterality Blood specimen 07/09/2017 12:20 7 (specimen) PM EST 12:20 PM EST Yuan Webber MD POINT OF CARE TEST ORDERABLE S Performing Organization Address City/State/ZIP Code Phon e Number [address] POCT Glucose (07/09/2017 11:24 AM EST) P athologist Signature POC Glucose 156 65 - 199 [facility] Comment: Supplemental ranges: <140 mg/dL before meals <180 mg/dL all other times of the day Specimen Anatomical Collection Method Collection Time Receive d Time (Source) Location / / Volume Laterality Blood specimen 07/09/2017 11:24 7 (specimen) AM EST 11:24 AM EST Yuan Webber MD POINT OF CARE TEST ORDERABLE S Performing Organization Address City/State/[place] [address] POCT Glucose (07/09/2017 11:11 AM EST) P athologist Signature POC Glucose 172 65 - 199 [facility] mg[facility]dL [facility] Comment: Supplemental ranges: <140 mg/dL before meals <180 mg/dL all other times of the day Specimen Anatomical Collection Method Collection Time Receive d Time (Source) Location / / Volume Laterality Blood specimen 07/09/2017 11:11 7 (specimen) AM EST 11:11 AM EST Yuan Webber MD POINT OF CARE TEST ORDERABLE S Performing Organization Address City/State/ZIP Code Phon e Number [address] POCT Glucose (07/09/2017 10:08 AM EST) P athologist Signature POC Glucose 176 65 - 199 [facility] mg/dL [facility] Comment: Supplemental ranges: <140 [...] [facility]/ZIP Code Phon e Number [address] POCT Glucose (07/09/2017 8:02 AM EST) P athologist Signature POC Glucose 178 65 - 199 [facility] mg/dL [facility] Comment: Supplemental ranges: <140 mg/dL before meals <180 mg/dL all other times of the day Specimen Anatomical Collection Method Collection Time Receive d Time (Source) Location / / Volume Laterality Blood specimen 07/09/2017 8:02 AM 017 8:02 (specimen) EST AM EST Yuan Webber MD POINT OF CARE TEST ORDERABLE S Performing Organization Address City/State/[place] [address] (ABNORMAL) BLOOD GAS 2 ARTERIAL (07/09/2017 5:37 AM EST) Analysis Performed At Patho logist Time Signature pH Art 7.36 7.35 - [facility] 7.45 [facility] pCO2 Art 38 35 - 45 [facility] LABORATORY pO2 Art 79 (L) 85 - 104 [facility] LABORATORY HCO3 Art 20.9 20.0 - [facility] 26.0 [facility] mmol/L HOSPITAL LABORATORY BE Art -4.6 (L) -3.0 - 3.0 [facility] mmol/L [facility] Hgb Blood Gas 10.5 (L) 13.7 - [facility] 16.5 gm/dL [facility] O2HB Art 93.8 (L) 94.0 - [facility] 97.0 % [facility] COHB Art 0.3 % [facility] LABORATORY Comment: Nonsmokers: 0.5-1.5% COHB Smokers: Variable, but usually less than 10% Toxic: 20-30% COHB Lethal: Greater than 60% COHB METHB Art 0.6 <=1.5 % [facility] Na Whole Blood 141 135 - 145 mmol/L [facility] K Whole Blood 4.5 3.5 - 5.0 mmol/L [facility] Comment: Please note: Patients with WBC >100,000 may have falsely elevated Potassium levels. Contact the Clinical Chemistry L aboratory if there are any questions. ICa Whole Blood 1.01 (L) 1.15 - 1.33 mmol/L [facility] LABORATORY Comment: Note: ??Total bilirubin higher than 20 m g/dL may lead to falsely low ionized calcium. CL Whole Blood 113 (H) 98 - 107 mmol/L [facility] LABORATORY Gluc Whole Bld 175 65 - 199 mg/dL [facility] LABORATORY Comment: Diabetes: >=200 mg/dL plus symp toms. Lactate WB 1.0 0.5 - 2.2 mmol/L [facility] LABORATORY FIO2 Art 40 % [facility] PF Ratio Art 198 [facility] LABORATORY Specimen Anatomical Collection Method Collection Time Receive d Time (Source) Location / / Volume Laterality Blood specimen 07/09/2017 5:37 AM 017 5:37 (specimen) EST AM EST Yuan Webber MD CHEMISTRY ORDERABLES Performing Organization Address City/State/ZIP [place] [address] POCT Glucose (07/09/2017 3:27 AM EST) athologist Signature POC Glucose 192 65 - 199 [facility] mg/dL [facility] Comment: Supplemental ranges: <140 mg/dL before meals <180 mg/dL all other times of the day Specimen Anatomical Collection Method Collection Time Receive d Time (Source) Location / / Volume Laterality Blood specimen 07/09/2017 3:27 AM 017 3:27 (specimen) EST AM EST Yuan Webber MD POINT OF CARE TEST ORDERABLE S Performing Organization Address City/State/ZIP [place] [address] (ABNORMAL) Basic Metabolic Panel (non-fasting) (07/09/2017 2:30 AM EST) athologist Signature Glucose Lvl 179 65 - 199 [facility] mg/dL [facility] Comment: Diabetes: >=200 mg/dL plus symp toms BUN 17 10 - 20 mg/dL [facility] Creatinine 1.34 0.80 - 1.50 mg/dL [facility] Sodium 144 135 - 145 mmol/L [facility] Potassium Not Perf 3.5 - 5.0 mmol/L [facility] Comment: Duplicate order Please note: ??Patients with WBC >100,00 0 may have falsely elevated Potassium levels. ??For accurate Potassium quantif ication in these patients send serum separator tube (gold top) for subsequent determinations. ??Contact the Clinical Chemistry Laboratory if there are any qu estions. Chloride 111 (H) 98 - 107 mmol/L [facility] CO2 21 (L) 22 - 31 mmol/L [facility] Anion Gap 12 5 - 15 mmol/L [facility] Calcium 7.1 (L) 8.5 - 10.5 mg/dL [facility] Comment: result rechecked-[id number] Estimated GFR 53 (L) >=60 [facility] Comment: The reported eGFR should be multiplied b y 1.2 for patients. The MDRD is not an appropriate measure o f renal function for patients with body mass extremes or in patients with acute kidney failure. [email or web address] Specimen Anatomical Collection Method Collection Time Receive d Time (Source) Location / / Volume Laterality Blood specimen Venous Draw / 07/09/2017 2:30 AM 2016 2:42 (specimen) Unknown EST AM EST Resulting Agency Comment Spec In Lab Yuan Webber MD CHEMISTRY ORDERABLES Performing Organization Address City/[facility] [place] [address] (ABNORMAL) Potassium (07/09/2017 2:30 AM EST) P athologist Signature Potassium 5.1 (H) 3.5 - 5.0 [facility] mmol/L [facility] Comment: Please note: ??Patients [...] Webber MD CHEMISTRY ORDERABLES Performing Organization Address [facility] [place] [address] (ABNORMAL) Hemogram (07/09/2017 2:30 AM EST) Analysis Performed At Patho logist Time Signature WBC 12.5 (H) 4.0 - 9.5 [facility] RYAN x10(3)/[facility] LABORATORY RBC 3.38 (L) 4.58 - [place]INA RYAN 5.54 [facility] x10(6)/[facility] LABORATORY Hemoglobin 10.1 (L) 13.7 - [place]INA RYAN 16.5 gm/dL [facility] Hematocrit 30.3 (L) 40.5 - [place]INA RYAN 48.5 % [facility]ORAT[facility] MCV 89.6 82.9 - KATALINA DAVIS 93.[address] [facility] LABORATORY MCH 29.9 27.5 - KATALINA DAVIS 32.1 pg [facility] MCHC 33.3 32.0 - KATALINA DAVIS 35.7 gm/dL [facility] Platelets 127 (L) 145 - 357 [place] x10(3)/[facility] LABORATORY RDWSD 49.3 (H) 36.0 - KATALINA DAVIS 45.[address] [facility] LABORATORY RDWCV 15.2 (H) 11.4 - KATALINA DAVIS 13.8 % [facility] MPV 9.9 7.6 - 12.9 KATALINA DAVIS [facility] LABORATORY nRBC % Auto 0.0 % [facility] LABORATORY nRBC Abs Auto 0.000 0.000 - KATALINA DAVIS 0.000 [facility] x10(3)/[facility] LABORATORY Specimen Anatomical Collection Method Collection Time Receive d Time (Source) Location / / Volume Laterality Blood specimen 07/09/2017 2:30 AM 017 2:41 (specimen) EST AM EST Resulting Agency Comment Spec In Lab Yuan Webber MD HEMATOLOGY ORDERABLES Performing Organization Address City/[facility]/ZIP Code Phon e Number [address] POCT Glucose (07/09/2017 2:10 AM EST) athologist Signature POC Glucose 169 65 - 199 [facility] mg/dL [facility] Comment: Supplemental ranges: <140 mg/dL before meals <180 mg/dL all other times of the day Specimen Anatomical Collection Method Collection Time Receive d Time (Source) Location / / Volume Laterality Blood specimen 07/09/2017 2:10 AM 017 2:10 (specimen) EST AM EST Yuan Webber MD POINT OF CARE TEST ORDERABLE S Performing Organization Address City/[facility] Code Phon e Number [address] POCT Glucose (07/09/2017 1:01 AM EST) athologist Signature POC Glucose 173 65 - 199 [facility] mg/dL [facility] Comment: Supplemental ranges: <140 [...] [facility]/[place] [address] Blood culture (07/09/2017 12:40 AM EST) [facility] gist Method Time Signature Blood Culture No growth KATALINA DAVIS at 5 days. [facility] Specimen Anatomical Collection Method Collection Time Receive d Time (Source) Location / / Volume Laterality Blood specimen STRUCTURE OF RIGHT 07/09/2017 12:40 3:58 (specimen) UPPER LIMB / AM EST AM EST Unknown Resulting Agency Comment Spec In Lab Yuan Webber MD MICROBIOLOGY - BLOOD ORDERAB LES Performing Organization Address City/[facility]/[place] [address] Blood culture (07/09/2017 12:30 AM EST) [facility] gist Method Time Signature Blood Culture No growth KATALINA DAVIS at 5 days. [facility] Specimen Anatomical Collection Method Collection Time Receive d Time (Source) Location / / Volume Laterality Blood specimen STRUCTURE OF LEFT 07/09/2017 12:30 1211/2016 3:59 (specimen) UPPER LIMB / AM EST AM EST Unknown Resulting Agency Comment Spec In Lab Yuan Webber MD MICROBIOLOGY - BLOOD ORDERAB LES Performing Organization Address City/[facility]/[place] [address] (ABNORMAL) Urinalysis Microscopic Exam (07/09/2017 12:05 AM EST) Analysis Performed At Patho logist Time Signature RBC UA 32 (H) 0 - 3 /HPF [facility] WBC UA 5 (H) 0 - 3 /HPF [facility] Squam Epith UA <1 <=4 /HPF [facility] Hyaline Cast 17 (H) 0 - 2 /LPF [facility] Gran Cast UA 1 (H) <=0 /LPF [facility] Uric Ac Bianca Rare (A) None /HPF [facility] Specimen (Source) Anatomical Collection Method Collection Time Re ceived Time Location / / Volume Laterality Urine specimen 07/09/2017 12: 7 obtained via AM EST 12:39 AM EST indwelling urinary catheter (specimen) Resulting Agency Comment Spec In Lab Yuan Webber MD URINE ORDERABLES Performing Organization Address City/State/ZIP [place] [address] (ABNORMAL) Urinalysis with reflex Culture (07/09/2017 12:05 AM EST) [facility] gist Method Time Signature Glucose UA Negative Negative [facility] mg/dL [facility] Protein UA 30 (A) Negative [facility] mg/dL [facility] Bilirubin UA Negative Negative [facility] mg/dL [facility] Comment: Clinical correlation required for positi ve Urine Bilirubin results as false positive may occur with some drugs and d rug related products. If a false positive is suspected a serum total bili yeager should be considered if clinically indicated. Urobilinogen UA Normal Normal mg/dL [facility] pH UA 5.0 5.0 - 8.0 [facility] Blood UA Moderate (A) Negative mg/dL [facility] Ketones UA Negative Negative mg/dL [facility] Nitrite UA Negative Negative [facility] Leukocytes UA Negative Negative [facility] LABORATORY Appearance UA Hazy (A) Clear [facility] Spec [place] UA 1.025 1.002 - 1.030 [facility] Color UA Yellow Yellow [facility] Culture Reflexed No [facility] Specimen (Source) Anatomical Collection Method Collection Time Re ceived Time Location / / Volume Laterality Urine specimen 07/09/2017 12:05 12/15/201 7 obtained via AM EST 12:39 AM EST indwelling urinary catheter (specimen) Resulting Agency Comment Spec In Lab Yuan Webber MD URINE ORDERABLES Performing Organization Address City/[facility]/ZIP Code Phon e Number [address] POCT Glucose (07/08/2017 11:01 PM EST) P athologist Signature POC Glucose 191 65 - 199 [facility]/dL [facility] Comment: Supplemental ranges: <140 mg/dL before meals <180 mg/dL all other times of the day Specimen Anatomical Collection Method Collection Time Receive d Time (Source) Location / / Volume Laterality Blood specimen 07/08/2017 11:01 7 (specimen) PM EST 11:01 PM EST Yuan Webber MD POINT OF CARE TEST ORDERABLE S Performing Organization Address [facility]/ZIP Code Phon e Number [address] POCT Glucose (07/08/2017 10:04 PM EST) P athologist Signature POC Glucose 198 65 - 199 [facility] mg/dL [facility] Comment: Supplemental ranges: <140 [...] [facility]/ZIP Code Phon e Number [address] Prepare Albumin 5% in 250 mL (07/08/2017 8:49 PM EST) P athologist Signature Dispensed? Yes [facility] Specimen Anatomical Collection Method Collection Time Receive d Time (Source) Location / / Volume Laterality Blood specimen No Charge / 07/08/2017 8:49 PM 017 8:51 (specimen) Unknown EST PM EST Resulting Agency Comment Spec In Lab [facility] ORDERABLES Performing Organization Address City/State/[place] [address] POCT Glucose (07/08/2017 8:28 PM EST) athologist Signature POC Glucose 195 65 - 199 KATALINA ZHAORYAN mg/dL [facility] Comment: Supplemental ranges: <140 [...] [facility]/[place] [address] (ABNORMAL) POCT Glucose (07/08/2017 7:13 PM EST) athologist Signature POC Glucose 220 (H) 65 - 199 KATALINA ZHAORYAN mg/dL [facility] Comment: Supplemental ranges: <140 [...] [facility]/[place] [address] POCT Glucose (07/08/2017 5:04 PM EST) athologist Signature POC Glucose 147 65 - 199 KATALINA ZHAORYAN mg/dL [facility] Comment: Supplemental ranges: <140 mg/dL before meals <180 mg/dL all other times of the day Specimen Anatomical Collection Method Collection Time Receive d Time (Source) Location / / Volume Laterality Blood specimen 07/08/2017 5:04 PM 017 5:04 (specimen) EST PM EST Yuan Webber MD POINT OF CARE TEST ORDERABLE S Performing Organization Address City/State/ZIP [place] [address] (ABNORMAL) BLOOD GAS 2 ARTERIAL (07/08/2017 4:13 PM EST) Analysis Performed At Patho logist Time Signature pH Art 7.38 7.35 - [facility] 7.45 [facility] pCO2 Art 36 35 - 45 [facility] mmHg [facility] pO2 Art 91 85 - 104 [facility] mmHg [facility] HCO3 Art 20.9 20.0 - [facility] 26.0 [facility] mmol/L [facility] BE Art -4.2 (L) -3.0 - 3.0 [facility] mmol/L [facility] Hgb Blood Gas 11.7 (L) 13.7 - [facility] 16.5 gm/dL [facility] O2HB Art 95.1 94.0 - [facility] 97.0 % [facility] COHB Art 0.6 % [facility] Comment: Nonsmokers: 0.5-1.5% COHB Smokers: Variable, but usually less than 10% Toxic: 20-30% COHB Lethal: Greater than 60% COHB METHB Art 0.6 <=1.5 % [facility] Na Whole Blood 139 135 - 145 mmol/L [facility] K Whole Blood 4.2 3.5 - 5.0 mmol/L [facility] Comment: Please note: Patients with WBC >100,000 may have falsely elevated Potassium levels. Contact the Clinical Chemistry L aboratory if there are any questions. ICa Whole Blood 1.05 (L) 1.15 - 1.33 mmol/L [facility] Comment: Note: ??Total bilirubin higher than 20 m g/dL may lead to falsely low ionized calcium. CL Whole Blood 110 (H) 98 - 107 mmol/L [facility] Gluc Whole Bld 155 65 - 199 mg/dL [facility] Comment: Diabetes: >=200 mg/dL plus symp toms. Lactate WB 1.4 0.5 - 2.2 mmol/L [facility] FIO2 Art 40 % [facility] PF Ratio Art 228 [facility] Specimen Anatomical Collection Method Collection Time Receive d Time (Source) Location / / Volume Laterality Blood specimen 07/08/2017 4:13 PM 017 4:13 (specimen) EST PM EST Yuan Webber MD CHEMISTRY ORDERABLES Performing Organization Address City/[facility]/ZIP Code Phon e Number [address] POCT Glucose (07/08/2017 4:01 PM EST) athologist Signature POC Glucose 148 65 - 199 [facility] Comment: Supplemental ranges: <140 mg/dL before meals <180 mg/dL all other times of the day Specimen Anatomical Collection Method Collection Time Receive d Time (Source) Location / / Volume Laterality Blood specimen 07/08/2017 4:01 PM 017 4:01 (specimen) EST PM EST Yuan Webber MD POINT OF CARE TEST ORDERABLE S Performing Organization Address City/State/ZIP Code Phon e Number [address] POCT Glucose (07/08/2017 3:21 PM EST) athologist Signature POC Glucose 118 65 - 199 [facility] mg/dL [facility] Comment: Supplemental ranges: <140 mg/dL before meals <180 mg/dL all other times of the day Specimen Anatomical Collection Method Collection Time Receive d Time (Source) Location / / Volume Laterality Blood specimen 07/08/2017 3:21 PM 017 3:21 (specimen) EST PM EST Yuan Webber MD POINT OF CARE TEST ORDERABLE S Performing Organization Address City/State/ZIP Code Phon e Number [address] POCT Glucose (07/08/2017 2:01 PM EST) athologist Signature POC Glucose 129 65 - 199 [facility] mg/dL [facility] Comment: Supplemental ranges: <140 mg/dL before meals <180 mg/dL all other times of the day Specimen Anatomical Collection Method Collection Time Receive d Time (Source) Location / / Volume Laterality Blood specimen 07/08/2017 2:01 PM 017 2:01 (specimen) EST PM EST Yuan Webber MD POINT OF CARE TEST ORDERABLE S Performing Organization Address City/State/[place] [address] POCT Glucose (07/08/2017 11:53 AM EST) athologist Signature POC Glucose 156 65 - 199 KATALINA RYAN mg/dL [facility] Comment: Supplemental ranges: <140 mg/dL before meals <180 mg/dL all other times of the day Specimen Anatomical Collection Method Collection Time Receive d Time (Source) Location / / Volume Laterality Blood specimen 07/08/2017 11:53 7 (specimen) AM EST 11:53 AM EST Yuan Webber MD POINT OF CARE TEST ORDERABLE S Performing Organization Address City/State/[place] [address] POCT Glucose (07/08/2017 11:04 AM EST) athologist Signature POC Glucose 181 65 - 199 KATALINA RYAN mg/dL [facility] Comment: Supplemental ranges: <140 mg/dL before meals <180 mg/dL all other times of the day Specimen Anatomical Collection Method Collection Time Receive d Time (Source) Location / / Volume Laterality Blood specimen 07/08/2017 11:04 7 (specimen) AM EST 11:04 AM EST Yuan Webber MD POINT OF CARE TEST ORDERABLE S Performing Organization Address City/State/[place] [address] (ABNORMAL) POCT Glucose (07/08/2017 9:24 AM EST) athologist Signature POC Glucose 203 (H) 65 - 199 KATALINA RYAN mg/dL [facility] Comment: Supplemental ranges: <140 [...] [facility]/[place] [address] APTT (07/08/2017 8:40 AM EST) P athologist Signature PTT 33 25 - 35 sec [facility] [...] Organization Address City/State/[place] [address] (ABNORMAL) Prothrombin Time (07/08/2017 8:40 AM EST) P athologist Signature PT 15.6 (H) 11.8 - 14.0 [facility] [...] Organization Address City/State/[place] [address] (ABNORMAL) POCT Glucose (07/08/2017 7:38 AM EST) athologist Signature POC Glucose 232 (H) 65 - 199 [facility] mg/dL [facility] Comment: Supplemental ranges: <140 [...] [facility]/[place] [address] (ABNORMAL) POCT Glucose (07/08/2017 7:07 AM EST) athologist Signature POC Glucose 234 (H) 65 - 199 [facility] mg/dL [facility] Comment: Supplemental ranges: <140 mg/dL before meals <180 mg/dL all other times of the day Specimen Anatomical Collection Method Collection Time Receive d Time (Source) Location / / Volume Laterality Blood specimen 07/08/2017 7:07 AM 017 7:07 (specimen) EST AM EST Yuan Webber MD POINT OF CARE TEST ORDERABLE S Performing Organization Address City/State/[place] [address] (ABNORMAL) POCT Glucose (07/08/2017 6:04 AM EST) athologist Signature POC Glucose 225 (H) 65 - 199 [facility] mg/dL [facility] Comment: Supplemental ranges: <140 mg/dL before meals <180 mg/dL all other times of the day Specimen Anatomical Collection Method Collection Time Receive d Time (Source) Location / / Volume Laterality Blood specimen 07/08/2017 6:04 AM 017 6:04 (specimen) EST AM EST Yuan Webber MD POINT OF CARE TEST ORDERABLE S Performing Organization Address City/State/[place] [address] (ABNORMAL) POCT Glucose (07/08/2017 5:31 AM EST) P athologist Signature POC Glucose 216 (H) 65 - 199 [facility] mg/dL [facility] Comment: Supplemental ranges: <140 mg/dL before meals <180 mg/dL all other times of the day Specimen Anatomical Collection Method Collection Time Receive d Time (Source) Location / / Volume Laterality Blood specimen 07/08/2017 5:31 AM 017 5:31 (specimen) EST AM EST Yuan Webber MD POINT OF CARE TEST ORDERABLE S Performing Organization Address City/State/[place] [address] (ABNORMAL) POCT Glucose (07/08/2017 4:52 AM EST) P athologist Signature POC Glucose 257 (H) 65 - 199 [facility] mg/dL [facility] Comment: Supplemental ranges: <140 mg/dL before meals <180 mg/dL all other times of the day Specimen Anatomical Collection Method Collection Time Receive d Time (Source) Location / / Volume Laterality Blood specimen 07/08/2017 4:52 AM 017 4:52 (specimen) EST AM EST Daphne Shahid MD POINT OF CARE TEST ORDERABLE S Performing Organization Address City/State/[place] [address] (ABNORMAL) BLOOD GAS 2 ARTERIAL (07/08/2017 4:04 AM EST) Analysis Performed At Patho logist Time Signature pH Art 7.30 (L) 7.35 - [facility] 7.45 [facility] pCO2 Art 41 35 - 45 [facility]ORY pO2 Art 83 (L) 85 - 104 [facility]ORY HCO3 Art 19.6 (L) 20.0 - [facility] 26.0 [facility] mmol/L [facility] BE Art -6.8 (L) -3.0 - 3.0 [facility] mmol/L [facility] Hgb Blood Gas 12.2 (L) 13.7 - [facility] 16.5 gm/dL [facility] O2HB Art 93.5 (L) 94.0 - [facility] 97.0 % [facility] COHB Art 0.4 % [facility] Comment: Nonsmokers: 0.5-1.5% COHB Smokers: Variable, but usually less than 10% Toxic: 20-30% COHB Lethal: Greater than 60% COHB METHB Art 0.8 <=1.5 % [facility] Na Whole Blood 138 135 - 145 mmol/L [facility] K Whole Blood 4.4 3.5 - 5.0 mmol/L [facility] Comment: Please note: Patients with WBC >100,000 may have falsely elevated Potassium levels. Contact the Clinical Chemistry L aboratory if there are any questions. ICa Whole Blood 1.05 (L) 1.15 - 1.33 mmol/L [facility] Comment: Note: ??Total bilirubin higher than 20 m g/dL may lead to falsely low ionized calcium. CL Whole Blood 107 98 - 107 mmol/L [facility] Gluc Whole Bld 274 (H) 65 - 199 mg/dL [facility] Comment: Diabetes: >=200 mg/dL plus symp toms. Lactate WB 4.4 (Critical) 0.5 - 2.2 mmol/L [facility] Comment: Noted by instrumentation manager. FIO2 Art 40 % [facility] PF Ratio Art 208 [facility] Specimen Anatomical Collection Method Collection Time Receive d Time (Source) Location / / Volume Laterality Blood specimen 07/08/2017 4:04 AM 017 4:04 (specimen) EST AM EST Daphne Shahid MD CHEMISTRY ORDERABLES Performing Organization Address City/State/Z[place] [address] Scan, Peripheral Blood (07/08/2017 4:00 AM EST) P athologist Signature Plat Estimate Normal [facility] RBC Morphology Normal [facility] Specimen Anatomical Collection Method Collection Time Receive d Time (Source) Location / / Volume Laterality Blood specimen 07/08/2017 4:00 AM 017 4:09 (specimen) EST AM EST Resulting Agency Comment Spec In Lab Yuan Webber MD HEMATOLOGY ORDERABLES Performing Organization Address City/State/ZIP [place] [address] (ABNORMAL) Differential, Automated (07/08/2017 4:00 AM EST) Patholo gist Method Time Signature Neutrophils % 85.4 % [facility] Neutr Abs (ANC) 16.07 (H) 1.70 - [facility] 6.10 [facility] x10(3)/[facility] LABORATORY Lymphocytes % 3.5 % [facility] Lymphocytes Abs 0.6 (L) 0.9 - 3.2 [facility] x10(3)/[facility] LABORATORY Monocytes % 10.4 % [facility] Monocyte Abs 2.0 (H) 0.3 - 0.9 [facility] x10(3)/[facility] LABORATORY Eosinophils % 0.0 % [facility] Eosinophils Abs 0.0 0.0 - 0.4 [facility] x10(3)/[facility] LABORATORY Basophils % 0.1 % [facility] Basophils Abs 0.0 0.0 - 0.1 [facility] x10(3)/[facility] LABORATORY Immature Gran % 0.60 % [facility] [...] Gran Abs 0.12 (H) 0.00 - 0.04 x10(3)/[facility] LABORATORY Specimen Anatomical Collection Method Collection Time Receive d Time (Source) Location / / Volume Laterality Blood specimen 07/08/2017 4:00 AM 017 4:09 (specimen) EST AM EST Resulting Agency Comment Spec In Lab Yuan Webber MD HEMATOLOGY ORDERABLES Performing Organization Address City/State/ZIP [place] [address] (ABNORMAL) Hemogram (07/08/2017 4:00 AM EST) Analysis Performed At Patho logist Time Signature WBC 18.8 (H) 4.0 - 9.5 [facility] x10(3)/[facility] LABORATORY RBC 4.00 (L) 4.58 - [facility] 5.54 [facility] x10(6)/[facility] LABORATORY Hemoglobin 11.9 (L) 13.7 - [facility] 16.5 gm/dL [facility] Hematocrit 35.9 (L) 40.5 - [facility] 48.5 % [facility] MCV 89.8 82.9 - [facility] 93.[address] [facility] LABORATORY MCH 29.8 27.5 - [facility] RYAN 32.1 pg [facility] MCHC 33.1 32.0 - [facility] RYAN 35.7 gm/dL [facility] Platelets 232 145 - 357 [facility] x10(3)/[facility] LABORATORY RDWSD 47.6 (H) 36.0 - [facility] RYAN 45.[address] [facility] LABORATORY RDWCV 14.5 (H) 11.4 - [facility] RYAN 13.8 % [facility] MPV 9.5 7.6 - 12.9 [facility] nRBC % Auto 0.0 % [facility] nRBC Abs Auto 0.000 0.000 - [place] RYAN 0.000 [facility] x10(3)/[facility] LABORATORY Specimen Anatomical Collection Method Collection Time Receive d Time (Source) Location / / Volume Laterality Blood specimen 07/08/2017 4:00 AM 017 4:09 (specimen) EST AM EST Resulting Agency Comment Spec In Lab Yuan Webber MD HEMATOLOGY ORDERABLES Performing Organization Address City/[facility]/[place] [address] (ABNORMAL) Electrolytes panel (07/08/2017 4:00 AM EST) athologist [facility] Sodium 139 135 - 145 [facility] mmol/L [facility] Potassium 4.7 3.5 - 5.0 [facility] mmol/L [facility] Comment: result rechecked-JLK Please note: ??Patients with WBC >100,00 0 may have falsely elevated Potassium levels. ??For accurate Potassium quantif ication in these patients send serum separator tube (gold top) for subsequent determinations. ??Contact the Clinical Chemistry Laboratory if there are any qu estions. Chloride 104 98 - 107 mmol/L [facility] CO2 21 (L) 22 - 31 mmol/L [facility] [...] [facility]/[place] [address] (ABNORMAL) Cardiac Enzymes (LEB/CGP) (07/08/2017 4:00 AM EST) athologist [facility] Troponin-T 1.88 (H) 0.00 - [facility] 0.00 ng/mL [facility] Comment: The 99th percentile [...] additional sample may be indicated. Reference: Third [place] Definition of Myocardial Infarction. Journal of the [place] [employer] 2012;60:1581-98 CK, Total 413 (H) 0 - 200 unit/L [facility] Comment: result rechecked-AYDIN Specimen Anatomical Collection Method Collection Time Receive d Time (Source) Location / / Volume Laterality Blood specimen 07/08/2017 4:00 AM 017 4:09 (specimen) EST AM EST Resulting Agency Comment Spec In Lab Yuan Webber MD CHEMISTRY ORDERABLES Performing Organization Address City/State/Z[place] [address] (ABNORMAL) Glucose, fasting (07/08/2017 4:00 AM EST) athologist Signature Glucose 287 (H) 65 - 99 [facility] Fasting mg/dL [facility] Comment: ?Fasting* Glucose Interpretive [...] of Diabetes Mellitus, Position Statement from the [place] [employer]. ??Diabete s Care, Volume 33, Supplement 1, Jul 2009 Specimen Anatomical Collection Method Collection Time Receive d Time (Source) Location / / Volume Laterality Blood specimen 07/08/2017 4:00 AM 017 4:09 (specimen) EST AM EST Resulting Agency Comment Spec In Lab Yuan Webber MD CHEMISTRY ORDERABLES Performing Organization Address City/State/[place] [address] (ABNORMAL) Creatinine (07/08/2017 4:00 AM EST) Analysis Performed At Patho logist Time Signature Creatinine 1.55 (H) 0.80 - [facility] 1.50 mg/dL [facility] Estimated GFR 44 (L) >=60 [facility] Comment: The reported eGFR should be multiplied b y 1.2 for patients. The MDRD is not an appropriate measure o f renal function for patients with body mass extremes or in patients with acute kidney failure. http://[employer]assoft/DHnkdep http://[employer]/DHMCnkf Specimen Anatomical Collection Method Collection Time Receive d Time (Source) Location / / Volume Laterality Blood specimen 07/08/2017 4:00 AM 017 4:09 (specimen) EST AM EST Resulting Agency Comment Spec In Lab Yuan Webber MD CHEMISTRY ORDERABLES Performing Organization Address City/State/[place] [address] BUN (07/08/2017 4:00 AM EST) P athologist Signature BUN 16 10 - 20 [facility]dL [facility] Specimen Anatomical Collection Method Collection Time Receive d Time (Source) Location / / Volume Laterality Blood specimen 07/08/2017 4:00 AM 017 4:09 (specimen) EST AM EST Resulting Agency Comment Spec In Lab Yuan Webber MD CHEMISTRY ORDERABLES Performing Organization Address City/[facility]/[place] [address] (ABNORMAL) POCT Glucose (07/08/2017 3:00 AM EST) P athologist Signature POC Glucose 273 (H) 65 - 199 [facility] mg/dL [facility] Comment: Supplemental ranges: <140 mg/dL before meals <180 mg/dL all other times of the day Specimen Anatomical Collection Method Collection Time Receive d Time (Source) Location / / Volume Laterality Blood specimen 07/08/2017 3:00 AM 017 3:00 (specimen) EST AM EST Daphne Shahid MD POINT OF CARE TEST ORDERABLE S Performing Organization Address City/State/[place] [address] (ABNORMAL) POCT Glucose (07/08/2017 1:57 AM EST) athologist Signature POC Glucose 288 (H) 65 - 199 [facility] mg/dL [facility] Comment: Supplemental ranges: <140 mg/dL before meals <180 mg/dL all other times of the day Specimen Anatomical Collection Method Collection Time Receive d Time (Source) Location / / Volume Laterality Blood specimen 07/08/2017 1:57 AM 017 1:57 (specimen) EST AM EST Daphne Shahid MD POINT OF CARE TEST ORDERABLE S Performing Organization Address City/State/[place] [address] (ABNORMAL) POCT Glucose (07/08/2017 1:01 AM EST) athologist Signature POC Glucose 315 (H) 65 - 199 [facility] mg/dL [facility] Comment: Supplemental ranges: <140 mg/dL before meals <180 mg/dL all other times of the day Specimen Anatomical Collection Method Collection Time Receive d Time (Source) Location / / Volume Laterality Blood specimen 07/08/2017 1:01 AM 017 1:01 (specimen) EST AM EST Daphne Shahid MD POINT OF CARE TEST ORDERABLE S Performing Organization Address City/State/[place] [address] (ABNORMAL) BLOOD GAS 2 ARTERIAL (07/08/2017 12:09 AM EST) athologist Signature pH Art 7.26 7.35 - [facility] (Critical) 7.45 [facility] Comment: Noted by instrumentation manager. pCO2 Art 41 35 - 45 mmHg [facility] pO2 Art 96 85 - [address] [facility] HCO3 Art 17.7 (L) 20.0 - 26.0 mmol/L [facility] BE Art -9.4 (L) -3.0 - 3.0 mmol/L [facility] Hgb Blood Gas 12.4 (L) 13.7 - 16.5 gm/dL [facility] O2HB Art 94.7 94.0 - 97.0 % [facility] COHB Art 0.2 % [facility] Comment: Nonsmokers: 0.5-1.5% COHB Smokers: Variable, but usually less than 10% Toxic: 20-30% COHB Lethal: Greater than 60% COHB METHB Art 0.6 <=1.5 % [facility] Na Whole Blood 141 135 - 145 mmol/L [facility] K Whole Blood 3.5 3.5 - 5.0 mmol/L [facility] Comment: Please note: Patients with WBC >100,000 may have falsely elevated Potassium levels. Contact the Clinical Chemistry L aboratory if there are any questions. ICa Whole Blood 1.03 (L) 1.15 - 1.33 mmol/L [facility] Comment: Note: ??Total bilirubin higher than 20 m g/dL may lead to falsely low ionized calcium. CL Whole Blood 109 (H) 98 - 107 mmol/L [facility] Gluc Whole Bld 315 (H) 65 - 199 mg/dL [facility] Comment: Diabetes: >=200 mg/dL plus symp toms. Lactate WB 7.6 (Critical) 0.5 - 2.2 mmol/L [facility] Comment: Noted by instrumentation manager. FIO2 Art 40 % [facility] PF Ratio Art 240 [facility] Specimen Anatomical Collection Method Collection Time Receive d Time (Source) Location / / Volume Laterality Blood specimen Arterial Draw / 07/08/2017 12:09 2016 5:31 (specimen) Unknown AM EST AM EST Resulting Agency Comment Spec In Lab Samy Maldonado MD CHEMISTRY ORDERABLES Performing Organization Address City/[facility]/[place] [address] (ABNORMAL) POCT Glucose (07/07/2017 10:56 PM EST) athologist Signature POC Glucose 292 (H) 65 - 199 [facility] mg/dL [facility] Comment: Supplemental ranges: <140 [...] [facility]/[place] [address] (ABNORMAL) BLOOD GAS 2 ARTERIAL (07/07/2017 10:04 PM EST) athologist Signature pH Art 7.22 7.35 - [facility] (Critical) 7.45 [facility] Comment: Noted by instrumentation manager. pCO2 Art 42 35 - 45 mmHg [facility] pO2 Art 94 85 - [address] [facility] HCO3 Art 16.9 (L) 20.0 - 26.0 mmol/L [facility] BE Art -10.7 (L) -3.0 - 3.0 mmol/L [facility] Hgb Blood Gas 13.0 (L) 13.7 - 16.5 gm/dL [facility] O2HB Art 93.8 (L) 94.0 - 97.0 % [facility] COHB Art 0.7 % [facility] Comment: Nonsmokers: 0.5-1.5% COHB Smokers: Variable, but usually less than 10% Toxic: 20-30% COHB Lethal: Greater than 60% COHB METHB Art 0.7 <=1.5 % [facility] Na Whole Blood 140 135 - 145 mmol/L [facility] K Whole Blood 3.3 (L) 3.5 - 5.0 mmol/L [facility] Comment: Please note: Patients with WBC >100,000 may have falsely elevated Potassium levels. Contact the Clinical Chemistry L aboratory if there are any questions. ICa Whole Blood 1.07 (L) 1.15 - 1.33 mmol/L [facility] Comment: Note: ??Total bilirubin higher than 20 m g/dL may lead to falsely low ionized calcium. CL Whole Blood 107 98 - 107 mmol/L [facility] Gluc Whole Bld 304 (H) 65 - 199 mg/dL [facility] Comment: Diabetes: >=200 mg/dL plus symp toms. Lactate WB 8.2 (Critical) 0.5 - 2.2 mmol/L [facility] Comment: Noted by instrumentation manager. FIO2 Art 40 % [facility] PF Ratio Art 235 [facility] Specimen Anatomical Collection Method Collection Time Receive d Time (Source) Location / / Volume Laterality Blood specimen 07/07/2017 10:04 7 (specimen) PM EST 10:04 PM EST Daphne Shahid MD CHEMISTRY ORDERABLES Performing Organization Address City/State/ZIP [place] [address] (ABNORMAL) Hemoglobin (07/07/2017 10:00 PM EST) P athologist Signature Hemoglobin 12.8 (L) 13.7 - [facility] 16.5 gm/dL [facility] Specimen Anatomical Collection Method Collection Time Receive d Time (Source) Location / / Volume Laterality Blood specimen 07/07/2017 10:00 7 (specimen) PM EST 10:13 PM EST Resulting Agency Comment Spec In Lab Yuan Webber MD HEMATOLOGY ORDERABLES Performing Organization Address City/[facility]/[place] [address] (ABNORMAL) Potassium (07/07/2017 10:00 PM EST) athologist Signature Potassium 3.4 (L) 3.5 - 5.0 [facility] mmol/L [facility] Comment: Please note: ??Patients [...] [facility]/[place] [address] (ABNORMAL) POCT Glucose (07/07/2017 8:49 PM EST) athologist Signature POC Glucose 241 (H) 65 - 199 [facility] mg/dL [facility] Comment: Supplemental ranges: <140 [...] [facility]/[place] [address] Prepare Albumin 5% in 250 mL (07/07/2017 8:03 PM EST) athologist Signature Dispensed? Yes [facility] Specimen Anatomical Collection Method Collection Time Receive d Time (Source) Location / / Volume Laterality Blood specimen No Charge / 07/07/2017 8:03 PM 017 8:04 (specimen) Unknown EST PM EST Resulting Agency Comment Spec In Lab Michael BROWN BLOOD BANK ORDERABLES Performing Organization Address City/State/ZIP [place] [address] EKG 12 Lead (07/07/2017 7:17 PM EST) Component Value Ref Range Test Analysis Performed Pathologis t Method Time At Signature Ventricular rate 75 BPM MUSE SYSTEM Atrial Rate 75 BPM MUSE SYSTEM P-R Interval 168 ms MUSE SYSTEM QRS Duration 104 ms MUSE SYSTEM Q-T Interval 462 ms MUSE SYSTEM QTC Calculated 515 ms MUSE SYSTEM (Bezet) Calculated P [place] 52 degrees MUSE SYSTEM Calculated R [place] -40 degrees MUSE SYSTEM Calculated T [place] 39 degrees MUSE SYSTEM INTERPRETATION Normal sinus [...] [facility] (Critical) 7.45 [facility] Comment: Noted by instrumentation manager. pCO2 Art 50 (H) 35 - 45 mmHg [facility] pO2 Art 238 (H) 85 - [address] [facility] HCO3 Art 19.8 (L) 20.0 - 26.0 mmol/L [facility] BE Art -8.1 (L) -3.0 - 3.0 mmol/L [facility] Hgb Blood Gas 12.8 (L) 13.7 - 16.5 gm/dL [facility] O2HB Art 97.5 (H) 94.0 - 97.0 % [facility] COHB Art 0.5 % [facility] Comment: Nonsmokers: 0.5-1.5% COHB Smokers: Variable, but usually less than 10% Toxic: 20-30% COHB Lethal: Greater than 60% COHB METHB Art 0.7 <=1.5 % [facility] Na Whole Blood 140 135 - 145 mmol/L [facility] K Whole Blood 3.0 (Critical) 3.5 - 5.0 mmol/L [facility] Comment: Noted by instrumentation manager. Please note: Patients with WBC >100,000 may have falsely elevated Potassium levels. Contact the Clinical Chemistry L aboratory if there are any questions. ICa Whole Blood 1.07 (L) 1.15 - 1.33 mmol/L [facility] Comment: Note: ??Total bilirubin higher than 20 m g/dL may lead to falsely low ionized calcium. CL Whole Blood 107 98 - 107 mmol/L [facility] Gluc Whole Bld 270 (H) 65 - 199 mg/dL [facility] Comment: Diabetes: >=200 mg/dL plus symp toms. Lactate WB 4.9 (Critical) 0.5 - 2.2 mmol/L [facility] Comment: Noted by instrumentation manager. FIO2 Art 100 % [facility] PF Ratio Art 238 [facility] Specimen Anatomical Collection Method Collection Time Receive d Time (Source) Location / / Volume Laterality Blood specimen 07/07/2017 6:57 PM 017 6:57 (specimen) EST PM EST Daphne Shahid MD CHEMISTRY ORDERABLES Performing Organization Address City/State/ZIP [place] [address] (ABNORMAL) BLOOD GAS 2 ARTERIAL (07/07/2017 5:31 PM EST) athologist Signature pH Art 7.29 7.35 - [facility] (Critical) 7.45 [facility] Comment: Noted by instrumentation manager. pCO2 Art 48 (H) 35 - 45 mmHg [facility] pO2 Art 137 (H) 85 - [address] [facility] HCO3 Art 22.4 20.0 - 26.0 mmol/L [facility] BE Art -4.3 (L) -3.0 - 3.0 mmol/L [facility] Hgb Blood Gas 10.0 (L) 13.7 - 16.5 gm/dL [facility] O2HB Art 97.3 (H) 94.0 - 97.0 % [facility] COHB Art 0.3 % [facility] Comment: Nonsmokers: 0.5-1.5% COHB Smokers: Variable, but usually less than 10% Toxic: 20-30% COHB Lethal: Greater than 60% COHB METHB Art 0.3 <=1.5 % [facility] Na Whole Blood 132 (L) 135 - 145 mmol/L [facility] K Whole Blood 4.0 3.5 - 5.0 mmol/L [facility] Comment: Please note: Patients with WBC >100,000 may have falsely elevated Potassium levels. Contact the Clinical Chemistry L aboratory if there are any questions. ICa Whole Blood 1.14 (L) 1.15 - 1.33 mmol/L [facility] Comment: Note: ??Total bilirubin higher than 20 m g/dL may lead to falsely low ionized calcium. CL Whole Blood 105 98 - 107 mmol/L [facility] Gluc Whole Bld 293 (H) 65 - 199 mg/dL [facility] Comment: Diabetes: >=200 mg/dL plus symp toms. Lactate WB 3.1 (H) 0.5 - 2.2 mmol/L [facility] Specimen Anatomical Collection Method Collection Time Receive d Time (Source) Location / / Volume Laterality Blood specimen 07/07/2017 5:31 PM 017 5:31 (specimen) EST PM EST Daphne Shahid MD CHEMISTRY ORDERABLES Performing Organization Address City/State/ZIP [place] [address] Fibrinogen (07/07/2017 5:30 PM EST) P athologist Signature Fibrinogen 224 180 - 510 [facility] mg/dL [facility] Comment: Called by: JEET, [...] [facility]/ZIP Code Phon e Number [address] APTT (07/07/2017 5:30 PM EST) athologist Signature PTT 30 25 - 35 sec [facility] [...] Performing Organization Address City/[facility]/ZIP [facility] [place] [address] (ABNORMAL) Prothrombin Time (07/07/2017 5:30 PM EST) athologist Signature PT 19.0 (H) 11.8 - 14.0 [facility] [...] City/State/ZIP [place] [address] (ABNORMAL) Hemogram (07/07/2017 5:30 PM EST) athologist Signature WBC 19.6 (H) 4.0 - 9.5 [facility] x10(3)/[facility] LABORATORY RBC 3.08 (L) 4.58 - [facility] 5.54 [facility] x10(6)/[facility] LABORATORY Hemoglobin 9.2 (L) 13.7 - [facility] 16.5 gm/dL [facility] Hematocrit 28.0 (L) 40.5 - [facility] 48.5 % [facility] Comment: This result has been called to MONICA WEINSTEIN SON by DONALD GROSSMAN on 07 07 2017 at 1759, and has been read back. MCV 90.9 82.9 - 93.1 [facility] LABORATORY MCH 29.9 27.5 - 32.1 pg [facility] MCHC 32.9 32.0 - 35.7 gm/dL [facility] LABORATORY Platelets 155 145 - 357 x10(3)/[facility] LABORATORY RDWSD 46.5 (H) 36.0 - 45.0 [facility] LABORATORY RDWCV 14.1 (H) 11.4 - 13.8 % [facility] MPV 9.5 7.6 - 12.9 [facility] LABORATORY nRBC % Auto 0.0 % [facility] LABORATORY nRBC Abs Auto 0.000 0.000 - 0.000 x10(3)/mcL [facility] LABORATORY Specimen Anatomical Collection Method Collection Time Receive d Time (Source) Location / / Volume Laterality Blood specimen 07/07/2017 5:30 PM 017 5:34 (specimen) EST PM EST Resulting Agency Comment Spec In Lab Yifan Perez MD HEMATOLOGY ORDERABLES Performing Organization Address City/[facility]/ZIP Code Phon e Number [address] Prepare Platelets, Apheresis (07/07/2017 5:00 PM EST) P athologist Signature Dispensed? Yes [facility] Specimen Anatomical Collection Method Collection Time Receive d Time (Source) Location / / Volume Laterality Blood specimen 07/07/2017 5:00 PM 017 4:58 (specimen) EST PM EST Daphne Shahid MD BLOOD BANK ORDERABLES Performing Organization Address City/[facility]/ZIP Code Phon e Number [address] Platelet count (07/07/2017 4:55 PM EST) P athologist Signature Platelets 177 145 - 357 [facility] x10(3)/[facility] LABORATORY Plat Immature 1.5 0.0 - 7.4 [facility] % % [facility] Comment: Limitation of the Immature Platelet Frac tion (IPF)-May be less reliable when the platelet count is less than 94u821/u L due to statistical imprecision. The IPF [...] in a decreased state of production. References: [employer] The Clinical Value of the Immature Platelet Fraction (IPF) in Cell Recovery Document Number 10-1143 12/2010 [employer] The Role of the Imm ature [...] Organization Address City/State/[place] [address] (ABNORMAL) Hemoglobin and Hematocrit, blood (07/07/2017 4:55 PM EST) P athologist Signature Hemoglobin 9.1 (L) 13.7 - 16.5 [facility] gm/dL [facility] Comment: This result has been called to MALKA MORAN by DONALD GROSSMAN on 07 07 2017 at 1734, and has been read back. Hematocrit 26.6 (L) 40.5 - 48.5 % [facility] Comment: This result has [...] Organization Address City/State/[place] [address] (ABNORMAL) BLOOD GAS 2 ARTERIAL (07/07/2017 4:38 PM EST) Analysis Performed At Patho logist Time Signature pH Art 7.37 7.35 - [facility] 7.45 [facility] pCO2 Art 44 35 - 45 [facility] mmHg [facility] pO2 Art 322 (H) 85 - 104 [facility] LABORATORY HCO3 Art 24.9 20.0 - [facility] 26.0 [facility] mmol/L [facility] LABORATORY BE Art -0.4 -3.0 - 3.0 [facility] mmol/L [facility] Hgb Blood Gas 10.1 (L) 13.7 - [facility] 16.5 gm/dL [facility] O2HB Art 98.7 (H) 94.0 - [facility] 97.0 % [facility] COHB Art 0.1 % [facility] Comment: Nonsmokers: 0.5-1.5% COHB Smokers: Variable, but usually less than 10% Toxic: 20-30% COHB Lethal: Greater than 60% COHB METHB Art 0.3 <=1.5 % [facility] Na Whole Blood 130 (L) 135 - 145 mmol/L [facility] K Whole Blood 5.7 (H) 3.5 - 5.0 mmol/L [facility]ORY Comment: Please note: Patients with WBC >100,000 may have falsely elevated Potassium levels. Contact the Clinical Chemistry L aboratory if there are any questions. ICa Whole Blood 0.89 (Critical) 1.15 - 1.33 mmol/L [facility] Comment: Noted by instrumentation manager. Note: ??Total bilirubin higher than 20 m g/dL may lead to falsely low ionized calcium. CL Whole Blood 101 98 - 107 mmol/L [facility]ORY Gluc Whole Bld 295 (H) 65 - 199 mg/dL [facility] Comment: Diabetes: >=200 mg/dL plus symp toms. Lactate WB 1.7 0.5 - 2.2 mmol/L [facility] Specimen Anatomical Collection Method Collection Time Receive d Time (Source) Location / / Volume Laterality Blood specimen 07/07/2017 4:38 PM 017 4:38 (specimen) EST PM EST Daphne Shahid MD CHEMISTRY ORDERABLES Performing Organization Address City/State/Z[place] [address] (ABNORMAL) BLOOD GAS 2 VENOUS (07/07/2017 4:06 PM EST) Analysis Performed At Patho logist Time Signature pH Cody 7.31 (L) 7.32 - [facility] 7.42 [facility] pCO2 [place] 47 41 - 51 [facility] LABORATORY pO2 [place] 53 (H) 25 - 40 [facility] LABORATORY HCO3 [place] 22.7 mmol/L [facility] BE Cody -3.7 mmol/L [facility] Hgb Blood Gas 10.2 (L) 13.7 - [facility] 16.5 gm/dL [facility] O2HB Cody 81.0 % [facility] COHB Cody 1.0 % [facility] Comment: Nonsmokers: 0.5-1.5% COHB Smokers: Variable, but usually less than 10% Toxic: 20-30% COHB Lethal: Greater than 60% COHB METHB Cody 0.3 <=1.5 % [facility] Na Whole Blood 132 (L) 135 - 145 mmol/L [facility] K Whole Blood 5.3 (H) 3.5 - 5.0 mmol/L [facility] Comment: Please note: Patients with WBC >100,000 may have falsely elevated Potassium levels. Contact the Clinical Chemistry L aboratory if there are any questions. ICa Whole Blood 0.90 (Critical) 1.15 - 1.33 mmol/L [facility] Comment: Noted by instrumentation manager. Note: ??Total bilirubin higher than 20 m g/dL may lead to falsely low ionized calcium. CL Whole Blood 100 98 - 107 mmol/L [facility]ORY Gluc Whole Bld 231 (H) 65 - 199 mg/dL [facility] Comment: Diabetes: >=200 mg/dL plus symp toms Lactate WB 1.1 0.5 - 2.2 mmol/L [facility] BGas Source Venous [facility] LABOR[facility]ORY Specimen Anatomical Collection Method Collection Time Receive d Time (Source) Location / / Volume Laterality Blood specimen 07/07/2017 4:06 PM 017 4:06 (specimen) EST PM EST Daphne Shahid MD CHEMISTRY ORDERABLES Performing Organization Address City/State/Z[place] [address] (ABNORMAL) BLOOD GAS 2 ARTERIAL (07/07/2017 4:05 PM EST) Analysis Performed At Patho logist Time Signature pH Art 7.36 7.35 - [facility] 7.45 [facility] pCO2 Art 40 35 - 45 [facility] mmHg [facility] pO2 Art 282 (H) 85 - 104 [facility] mmHg [facility] HCO3 Art 22.1 20.0 - [facility] 26.0 [facility] mmol/L [facility]OR[facility] BE Art -3.4 (L) -3.0 - 3.0 [facility] mmol/L [facility] Hgb Blood Gas 10.2 (L) 13.7 - [facility] 16.5 gm/dL [facility] O2HB Art 98.4 (H) 94.0 - [facility] 97.0 % [facility] COHB Art 0.3 % [facility] Comment: Nonsmokers: 0.5-1.5% COHB Smokers: Variable, but usually less than 10% Toxic: 20-30% COHB Lethal: Greater than 60% COHB METHB Art 0.3 <=1.5 % [facility] Na Whole Blood 131 (L) 135 - 145 mmol/L [facility] K Whole Blood 5.4 (H) 3.5 - 5.0 mmol/L [facility]ORY Comment: Please note: Patients with WBC >100,000 may have falsely elevated Potassium levels. Contact the Clinical Chemistry L aboratory if there are any questions. ICa Whole Blood 0.86 (Critical) 1.15 - 1.33 mmol/L [facility] Comment: Noted by instrumentation manager. Note: ??Total bilirubin higher than 20 m g/dL may lead to falsely low ionized calcium. CL Whole Blood 101 98 - 107 mmol/L [facility]ORY Gluc Whole Bld 260 (H) 65 - 199 mg/dL [facility] Comment: Diabetes: >=200 mg/dL plus symp toms. Lactate WB 1.4 0.5 - 2.2 mmol/L [facility] Specimen Anatomical Collection Method Collection Time Receive d Time (Source) Location / / Volume Laterality Blood specimen 07/07/2017 4:05 PM 017 4:05 (specimen) EST PM EST Daphne Shahid MD CHEMISTRY ORDERABLES Performing Organization Address City/State/Z[place] [address] (ABNORMAL) BLOOD GAS 2 ARTERIAL (07/07/2017 2:29 PM EST) Analysis Performed At Patho logist Time Signature pH Art 7.43 7.35 - [facility] 7.45 [facility] pCO2 Art 36 35 - 45 [facility] mmHg [facility] pO2 Art 221 (H) 85 - 104 [facility] LABORATORY HCO3 Art 23.2 20.0 - [facility] 26.0 [facility] mmol/L [facility] BE Art -1.2 -3.0 - 3.0 [facility] mmol/L [facility] Hgb Blood Gas 13.9 13.7 - [facility] 16.5 gm/dL [facility] O2HB Art 97.8 (H) 94.0 - [facility] 97.0 % [facility] COHB Art 1.1 % [facility] Comment: Nonsmokers: 0.5-1.5% COHB Smokers: Variable, but usually less than 10% Toxic: 20-30% COHB Lethal: Greater than 60% COHB METHB Art 0.3 <=1.5 % [facility] Na Whole Blood 139 135 - 145 mmol/L [facility] K Whole Blood 4.0 3.5 - 5.0 mmol/L [facility] Comment: Please note: Patients with WBC >100,000 may have falsely elevated Potassium levels. Contact the Clinical Chemistry L aboratory if there are any questions. ICa Whole Blood 1.11 (L) 1.15 - 1.33 mmol/L [facility] Comment: Note: ??Total bilirubin higher than 20 m g/dL may lead to falsely low ionized calcium. CL Whole Blood 104 98 - 107 mmol/L [facility] Gluc Whole Bld 184 65 - 199 mg/dL [facility] Comment: Diabetes: >=200 mg/dL plus symp toms. Lactate WB 1.5 0.5 - 2.2 mmol/L [facility] Specimen Anatomical Collection Method Collection Time Receive d Time (Source) Location / / Volume Laterality Blood specimen 07/07/2017 2:29 PM 017 2:29 (specimen) EST PM EST Daphne Shahid MD CHEMISTRY ORDERABLES Performing Organization Address City/[facility]/ZIP Code Phon e Number [address] Prepare Coag Factors (Non-Hemophilia) (07/07/2017 1:25 PM EST) P athologist Signature Dispensed? Yes [facility] Specimen Anatomical Collection Method Collection Time Receive d Time (Source) Location / / Volume Laterality Blood specimen 07/07/2017 1:25 PM 017 1:21 (specimen) EST PM EST Daphne Shahid MD BLOOD BANK ORDERABLES Performing Organization Address City/[facility]/[place] [address] Prepare RBC (07/07/2017 1:10 PM EST) P athologist Signature Dispensed? Yes [facility] Specimen Anatomical Collection Method Collection Time Receive d Time (Source) Location / / Volume Laterality Blood specimen 07/07/2017 1:10 PM 017 1:05 (specimen) EST PM EST Daphne hSahid MD BLOOD BANK ORDERABLES Performing Organization Address City/[facility]/[place] [address] POCT Glucose (07/07/2017 11:56 AM EST) P athologist Signature POC Glucose 188 65 - 199 [facility] mg/dL [facility] Comment: Supplemental ranges: <140 mg/dL before meals <180 mg/dL all other times of the day Specimen Anatomical Collection Method Collection Time Receive d Time (Source) Location / / Volume Laterality Blood specimen 07/07/2017 11:56 7 (specimen) AM EST 11:56 AM EST Daphne Shahid MD POINT OF CARE TEST ORDERABLE S Performing Organization Address City/State/ZIP Code Phon e Number [address] POCT Glucose (07/07/2017 11:05 AM EST) P athologist Signature POC Glucose 168 65 - 199 [place] mg/dL [facility] Comment: Supplemental ranges: <140 [...] [facility]/ZIP Code Phon e Number [address] POCT Glucose (07/07/2017 10:02 AM EST) P athologist Signature POC Glucose 191 65 - 199 [place] mg/dL [facility] Comment: Supplemental ranges: <140 mg/dL before meals <180 mg/dL all other times of the day Specimen Anatomical Collection Method Collection Time Receive d Time (Source) Location / / Volume Laterality Blood specimen 07/07/2017 10:02 7 (specimen) AM EST 10:02 AM EST Daphne Shahid MD POINT OF CARE TEST ORDERABLE S Performing Organization Address City/State/[place] [address] POCT Glucose (07/07/2017 7:53 AM EST) P athologist Signature POC Glucose 178 65 - 199 [place] mg/dL [facility] Comment: Supplemental ranges: <140 mg/dL before meals <180 mg/dL all other times of the day Specimen Anatomical Collection Method Collection Time Receive d Time (Source) Location / / Volume Laterality Blood specimen 07/07/2017 7:53 AM 017 7:53 (specimen) EST AM EST Daphne Shahid MD POINT OF CARE TEST ORDERABLE S Performing Organization Address City/State/ZIP Code Phon e Number [address] POCT Glucose (07/07/2017 7:03 AM EST) athologist Signature POC Glucose 188 65 - 199 [facility] Comment: Supplemental ranges: <140 [...] [facility]/[place] [address] (ABNORMAL) POCT Glucose (07/07/2017 6:17 AM EST) athologist Signature POC Glucose 207 (H) 65 - 199 [facility] mg/dL [facility] Comment: Supplemental ranges: <140 [...] [facility]/ZIP Code Phon e Number [address] Differential, Automated (07/07/2017 5:15 AM EST) athologist Signature Neutrophils % 69.7 % [facility] Neutr Abs (ANC) 5.32 1.70 - [facility] 6.10 [facility] x10(3)/[facility] LABORATORY Lymphocytes % 16.3 % [facility] Lymphocytes Abs 1.2 0.9 - 3.2 [facility] x10(3)/[facility] LABORATORY Monocytes % 10.5 % [facility] Monocyte Abs 0.8 0.3 - 0.9 [facility] x10(3)/[facility] LABORATORY Eosinophils % 2.5 % [facility] Eosinophils Abs 0.2 0.0 - 0.4 [facility] x10(3)/[facility] LABORATORY Basophils % 0.7 % [facility] Basophils Abs 0.0 0.0 - 0.1 [facility] x10(3)/[facility] LABORATORY Immature Gran % 0.30 % [facility] [...] Melisa Gran Abs 0.02 0.00 - 0.04 x10(3)/[facility]ORY Specimen Anatomical Collection Method Collection Time Receive d Time (Source) Location / / Volume Laterality Blood specimen 07/07/2017 5:15 AM 017 5:34 (specimen) EST AM EST Resulting Agency Comment Spec In Lab Daphne Shahid MD HEMATOLOGY ORDERABLES Performing Organization Address City/State/ZIP [place] [address] (ABNORMAL) Hemogram (07/07/2017 5:15 AM EST) Analysis Performed At Patho logist Time Signature WBC 7.6 4.0 - 9.5 [facility] x10(3)/[facility] LABORATORY RBC 4.82 4.58 - [facility] 5.54 [facility] x10(6)/[facility] LABORATORY Hemoglobin 14.4 13.7 - [facility] 16.5 gm/dL [facility] Hematocrit 42.1 40.5 - [facility] 48.5 % [facility] MCV 87.3 82.9 - [facility] 93.1 fL [facility] MCH 29.9 27.5 - [facility] 32.1 pg [facility] MCHC 34.2 32.0 - [facility] 35.7 gm/dL [facility] Platelets 188 145 - 357 [facility] LABORATORY RDWSD 45.1 (H) 36.0 - [place] RY[place] 45.[address] [facility] LABORATORY RDWCV 14.3 (H) 11.4 - [facility] RYAN 13.8 % [facility] MPV 9.4 7.6 - 12.9 [facility] RYAN [facility] LABORATORY nRBC % Auto 0.0 % [facility] nRBC Abs Auto 0.000 0.000 - [place] DAVIS 0.000 [facility] x10(3)/[facility] LABORATORY Specimen Anatomical Collection Method Collection Time Receive d Time (Source) Location / / Volume Laterality Blood specimen 07/07/2017 5:15 AM 017 5:34 (specimen) EST AM EST Resulting Agency Comment Spec In Lab Daphne Shahid MD HEMATOLOGY ORDERABLES Performing Organization Address City/[facility]/ZIP Code Phon e Number [address] (ABNORMAL) APTT (07/07/2017 5:15 AM EST) P athologist Signature PTT 69 (H) 25 - 35 sec [facility] [...] Address City/State/ZIP Code Phon e Number [address] Magnesium (07/07/2017 5:15 AM EST) P athologist Signature Magnesium 0.94 0.69 - 1.07 [facility] mmol/L [facility] Specimen Anatomical Collection Method Collection Time Receive d Time (Source) Location / / Volume Laterality Blood specimen 07/07/2017 5:15 AM 017 5:34 (specimen) EST AM EST Resulting Agency Comment Spec In Lab Daphne Shahid MD CHEMISTRY ORDERABLES Performing Organization Address City/State/ZIP [place] [address] (ABNORMAL) Basic Metabolic Panel (non-fasting) (07/07/2017 5:15 AM EST) athologist Signature Glucose Lvl 203 (H) 65 - 199 [facility] mg/dL [facility] Comment: Diabetes: >=200 mg/dL plus symp toms BUN 15 10 - 20 mg/dL [facility] Creatinine 1.09 0.80 - 1.50 mg/dL [facility] Sodium 142 135 - 145 mmol/L [facility] Potassium 4.4 3.5 - 5.0 mmol/L [facility] [...] or in patients with acute kidney failure. http://[employer]/DHnkdep http://[employer]/DHMCnkf Specimen Anatomical Collection Method Collection Time Receive d Time (Source) Location / / Volume Laterality Blood specimen 07/07/2017 5:15 AM 017 5:34 (specimen) EST AM EST Resulting Agency Comment Spec In Lab Daphne Shahid MD CHEMISTRY ORDERABLES Performing Organization Address City/[facility]/[place] [address] (ABNORMAL) Cardiac Enzymes (LEB/CGP) (07/07/2017 5:15 AM EST) athologist Signature Troponin-T 2.07 (H) 0.00 - [place] OL[place] 0.00 ng/mL [facility] Comment: The 99th percentile [...] additional sample may be indicated. Reference: Third [place] Definition of Myocardial Infarction. Journal of the [employer] 2012;60:1581-98 CK, Total 88 0 - 200 unit/L [facility] Specimen Anatomical Collection Method Collection Time Receive d Time (Source) Location / / Volume Laterality Blood specimen 07/07/2017 5:15 AM 017 5:34 (specimen) EST AM EST Resulting Agency Comment Spec In Lab Daphne Shahid MD CHEMISTRY ORDERABLES Performing Organization Address City/[facility]/[place] [address] POCT Glucose (07/07/2017 5:01 AM EST) athologist Signature POC Glucose 182 65 - 199 [place] mg/dL [facility] Comment: Supplemental ranges: <140 mg/dL before meals <180 mg/dL all other times of the day Specimen Anatomical Collection Method Collection Time Receive d Time (Source) Location / / Volume Laterality Blood specimen 07/07/2017 5:01 AM 017 5:01 (specimen) EST AM EST Daphne Shahid MD POINT OF CARE TEST ORDERABLE S Performing Organization Address City/State/ZIP Code Phon e Number [address] POCT Glucose (07/07/2017 4:08 AM EST) athologist Signature POC Glucose 199 65 - 199 [facility] RYAN mg/dL [facility] Comment: Supplemental ranges: <140 mg/dL before meals <180 mg/dL all other times of the day Specimen Anatomical Collection Method Collection Time Receive d Time (Source) Location / / Volume Laterality Blood specimen 07/07/2017 4:08 AM 017 4:08 (specimen) EST AM EST Daphne Shahid MD POINT OF CARE TEST ORDERABLE S Performing Organization Address City/State/ZIP Code Phon e Number [address] POCT Glucose (07/07/2017 3:03 AM EST) athologist Signature POC Glucose 188 65 - 199 [place] ZHA[place]AN mg/dL [facility] Comment: Supplemental ranges: <140 mg/dL before meals <180 mg/dL all other times of the day Specimen Anatomical Collection Method Collection Time Receive d Time (Source) Location / / Volume Laterality Blood specimen 07/07/2017 3:03 AM 017 3:03 (specimen) EST AM EST Daphne Shahid MD POINT OF CARE TEST ORDERABLE S Performing Organization Address City/State/[place] [address] (ABNORMAL) POCT Glucose (07/07/2017 2:08 AM EST) athologist Signature POC Glucose 200 (H) 65 - 199 [facility] mg/dL [facility] Comment: Supplemental ranges: <140 mg/dL before meals <180 mg/dL all other times of the day Specimen Anatomical Collection Method Collection Time Receive d Time (Source) Location / / Volume Laterality Blood specimen 07/07/2017 2:08 AM 017 2:08 (specimen) EST AM EST Daphne Shahid MD POINT OF CARE TEST ORDERABLE S Performing Organization Address City/State/[place] [address] (ABNORMAL) POCT Glucose (07/07/2017 1:31 AM EST) athologist Signature POC Glucose 209 (H) 65 - 199 [facility] Comment: Supplemental ranges: <140 [...] [facility]/[place] [address] XR Chest PA or [...] 199 [facility] mg/dL [facility] Comment: Supplemental ranges: <140 mg/dL before meals <180 mg/dL all other times of the day Specimen Anatomical Collection Method Collection Time Receive d Time (Source) Location / / Volume Laterality Blood specimen 07/07/2017 12:07 7 (specimen) AM EST 12:07 AM EST Daphne Shahid MD POINT OF CARE TEST ORDERABLE S Performing Organization Address City/State/ZIP Code Phon e Number [address] (ABNORMAL) APTT (07/07/2017 12:00 AM EST) athologist Signature PTT 103 (H) 25 - 35 sec [facility] [...] Address City/State/ZIP Code Phon e Number [address] POCT Glucose (07/06/2017 9:55 PM EST) athologist Signature POC Glucose 109 65 - 199 [facility] RYAN mg/dL [facility] Comment: Supplemental ranges: <140 mg/dL before meals <180 mg/dL all other times of the day Specimen Anatomical Collection Method Collection Time Receive d Time (Source) Location / / Volume Laterality Blood specimen 07/06/2017 9:55 PM 017 9:55 (specimen) EST PM EST Daphne Shahid MD POINT OF CARE TEST ORDERABLE S Performing Organization Address City/State/ZIP Code Phon e Number [address] POCT Glucose (07/06/2017 9:04 PM EST) athologist Signature POC Glucose 120 65 - 199 [facility] mg/dL [facility] Comment: Supplemental ranges: <140 mg/dL before meals <180 mg/dL all other times of the day Specimen Anatomical Collection Method Collection Time Receive d Time (Source) Location / / Volume Laterality Blood specimen 07/06/2017 9:04 PM 017 9:04 (specimen) EST PM EST Daphne Shahid MD POINT OF CARE TEST ORDERABLE S Performing Organization Address City/State/ZIP Code Phon e Number [address] POCT Glucose (07/06/2017 7:45 PM EST) athologist Signature POC Glucose 158 65 - 199 [facility] RYAN mg/dL [facility] Comment: Supplemental ranges: <140 mg/dL before meals <180 mg/dL all other times of the day Specimen Anatomical Collection Method Collection Time Receive d Time (Source) Location / / Volume Laterality Blood specimen 07/06/2017 7:45 PM 017 7:45 (specimen) EST PM EST Daphne Shahid MD POINT OF CARE TEST ORDERABLE S Performing Organization Address City/State/[place] [address] Potassium (07/06/2017 7:40 PM EST) athologist Signature Potassium 3.9 3.5 - 5.0 [facility] mmol/L [facility] Comment: Please note: ??Patients [...] Organization Address City/State/ZIP Code Phon e Number [place] [id number] (ABNORMAL) Cardiac Enzymes (LEB/CGP) (07/06/2017 7:40 PM EST) athologist Signature Troponin-T 2.27 (H) 0.00 - [place] RYAN 0.00 ng/mL [facility] Comment: The 99th percentile [...] additional sample may be indicated. Reference: [place] Definition of Myocardial Infarction. Journal of the [employer] 2012;60:1581-98 CK, Total 93 0 - 200 unit/L [facility] Specimen Anatomical Collection Method Collection Time Receive d Time (Source) Location / / Volume Laterality Blood specimen 07/06/2017 7:40 PM 017 7:52 (specimen) EST PM EST Resulting Agency Comment Spec In Lab Daphne Shahid MD CHEMISTRY ORDERABLES Performing Organization Address City/[facility]/[place] [address] (ABNORMAL) POCT Glucose (07/06/2017 7:13 PM EST) P athologist Signature POC Glucose 200 (H) 65 - 199 [facility] mg/dL [facility] Comment: Supplemental ranges: <140 mg/dL before meals <180 mg/dL all other times of the day Specimen Anatomical Collection Method Collection Time Receive d Time (Source) Location / / Volume Laterality Blood specimen 07/06/2017 7:13 PM 017 7:13 (specimen) EST PM EST Daphne Shahid MD POINT OF CARE TEST ORDERABLE S Performing Organization Address City/[facility] [place] [address] (ABNORMAL) APTT (07/06/2017 6:15 PM EST) P athologist Signature PTT 94 (H) 25 - 35 sec [facility]/ZIP Code Phon e Number [address] (ABNORMAL) POCT Glucose (07/06/2017 6:03 PM EST) athologist Signature POC Glucose 236 (H) 65 - 199 [facility] Comment: Supplemental ranges: <140 mg/dL before meals <180 mg/dL all other times of the day Specimen Anatomical Collection Method Collection Time Receive d Time (Source) Location / / Volume Laterality Blood specimen 07/06/2017 6:03 PM 017 6:03 (specimen) EST PM EST Daphne Shahid MD POINT OF CARE TEST ORDERABLE S Performing Organization Address City/State/[place] [address] (ABNORMAL) POCT Glucose (07/06/2017 5:01 PM EST) athologist Signature POC Glucose 235 (H) 65 - 199 [facility]/dL [facility] Comment: Supplemental ranges: <140 mg/dL before meals <180 mg/dL all other times of the day Specimen Anatomical Collection Method Collection Time Receive d Time (Source) Location / / Volume Laterality Blood specimen 07/06/2017 5:01 PM 017 5:01 (specimen) EST PM EST Daphne Shahid MD POINT OF CARE TEST ORDERABLE S Performing Organization Address City/State/[place] [address] (ABNORMAL) POCT Glucose (07/06/2017 4:06 PM EST) athologist Signature POC Glucose 202 (H) 65 - 199 [facility] RYAN mg/dL [facility] Comment: Supplemental ranges: <140 mg/dL before meals <180 mg/dL all other times of the day Specimen Anatomical Collection Method Collection Time Receive d Time (Source) Location / / Volume Laterality Blood specimen 07/06/2017 4:06 PM 017 4:06 (specimen) EST PM EST Daphne Shahid MD POINT OF CARE TEST ORDERABLE S Performing Organization Address City/State/[place] [address] POCT Glucose (07/06/2017 2:59 PM EST) athologist Signature POC Glucose 178 65 - 199 [facility]/dL [facility] Comment: Supplemental ranges: <140 mg/dL before meals <180 mg/dL all other times of the day Specimen Anatomical Collection Method Collection Time Receive d Time (Source) Location / / Volume Laterality Blood specimen 07/06/2017 2:59 PM 017 2:59 (specimen) EST PM EST Daphne Shahid MD POINT OF CARE TEST ORDERABLE S Performing Organization Address City/State/ZIP Code Phon e Number [place] [id number] [facility] LAB[address]ORY Drive (ABNORMAL) Cardiac Enzymes (LEB/CGP) (07/06/2017 2:10 PM EST) athologist Signature Troponin-T 2.34 (H) 0.00 - [facility] 0.00 ng/mL [facility] Comment: The 99th percentile [...] additional sample may be indicated. Reference: [place] Definition of Myocardial Infarction. Journal of the [employer] 2012;60:1581-98 CK, Total 101 0 - 200 unit/L [facility] Specimen Anatomical Collection Method Collection Time Receive d Time (Source) Location / / Volume Laterality Blood specimen 07/06/2017 2:10 PM 017 2:26 (specimen) EST PM EST Resulting Agency Comment Spec In Lab Daphne Shahid MD CHEMISTRY ORDERABLES Performing Organization Address City/State/ZIP Code Phon e Number [address] POCT Glucose (07/06/2017 2:08 PM EST) athologist Signature POC Glucose 192 65 - 199 [place] RY[place] mg/dL [facility] Comment: Supplemental ranges: <140 mg/dL before meals <180 mg/dL all other times of the day Specimen Anatomical Collection Method Collection Time Receive d Time (Source) Location / / Volume Laterality Blood specimen 07/06/2017 2:08 PM 017 2:08 (specimen) EST PM EST Daphne Shahid MD POINT OF CARE TEST ORDERABLE S Performing Organization Address City/State/ZIP Code Phon e Number [address] POCT Glucose (07/06/2017 1:04 PM EST) athologist Signature POC Glucose 162 65 - 199 [facility] mg/dL [facility] Comment: Supplemental ranges: <140 mg/dL before meals <180 mg/dL all other times of the day Specimen Anatomical Collection Method Collection Time Receive d Time (Source) Location / / Volume Laterality Blood specimen 07/06/2017 1:04 PM 017 1:04 (specimen) EST PM EST Daphne Shahid MD POINT OF CARE TEST ORDERABLE S Performing Organization Address City/State/ZIP Code Phon e Number [address] POCT Glucose (07/06/2017 12:05 PM EST) athologist Signature POC Glucose 196 65 - 199 [facility] mg/dL [facility] Comment: Supplemental ranges: <140 mg/dL before meals <180 mg/dL all other times of the day Specimen Anatomical Collection Method Collection Time Receive d Time (Source) Location / / Volume Laterality Blood specimen 07/06/2017 12:05 7 (specimen) PM EST 12:05 PM EST Daphne Shahid MD POINT OF CARE TEST ORDERABLE S Performing Organization Address [facility]/ZIP [place] [address] EKG 12 Lead (07/06/2017 12:00 PM EST) Component Value Ref Range Test Analysis Performed Pathologis t Method Time At Signature Ventricular rate 91 BPM MUSE SYSTEM Atrial Rate 91 BPM MUSE SYSTEM P-R Interval 140 ms MUSE SYSTEM QRS Duration 94 ms MUSE SYSTEM Q-T Interval 394 ms MUSE SYSTEM QTC Calculated 484 ms MUSE SYSTEM (Bezet) Calculated P [place] 36 degrees MUSE SYSTEM Calculated R [place] -19 degrees MUSE SYSTEM Calculated T [place] 104 degrees MUSE SYSTEM INTERPRETATION Normal sinus rhythm MUSE SYSTEM 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) ST & T wave abnormality, consider lateral ischemia Abnormal ECG When compared with ECG of 05-JUL-2017 20:39, No significant change was found Confirmed by MD Luci, [place] Braun ([id number]) on 07/06/2017 5:07:33 PM Specimen Anatomical Collection Method Collection Time Receive d Time (Source) Location / / Volume Laterality 07/06/2017 12:00 07/06/2017 5:07 PM EST PM EST Daphne Shahid MD ECG ORDERABLES Performing Organization Address [facility]/ZIP Code Phon e Number MUSE SYSTEM ABORH Recheck Status (07/06/2017 12:00 PM EST) [facility] Method Time Signature ABORH Type Completed [facility] LABORATORY Specimen Anatomical Collection Method Collection Time Receive d Time (Source) Location / / Volume Laterality Blood specimen 07/06/2017 12:00 7 (specimen) PM EST 12:24 PM EST Resulting Agency Comment Spec In Lab Daphne Shahid MD BLOOD BANK ORDERABLES Performing Organization Address [facility]/ZIP [place] [address] Antibody screen (07/06/2017 12:00 PM EST) [facility] Method Time Signature Ab Screen Negative [facility] LABORATORY Expires at 07/09/2017 [facility] [id number] on: [facility] LABORATORY Specimen Anatomical Collection Method Collection Time Receive d Time (Source) Location / / Volume Laterality Blood specimen 07/06/2017 12:00 7 (specimen) PM EST 12:24 PM EST Resulting Agency Comment Spec In Lab Daphne Shahid MD BLOOD BANK ORDERABLES Performing Organization Address City/[facility]/[place] [address] ABO/Rh Typing (07/06/2017 12:00 [...] ORDERABLES Performing Organization Address City/[facility] [place] [address] Prothrombin Time (07/06/2017 11:24 AM EST) P athologist Signature PT 13.3 11.8 - 14.0 [facility] LABORATORY INR 1.0 0.9 - 1.1 [facility] LABORATORY [...] [facility]/ZIP Code Phon e Number [address] (ABNORMAL) APTT (07/06/2017 11:24 AM EST) athologist Signature PTT 52 (H) 25 - 35 sec [facility] [...] ORDERABLES Performing Organization Address City/[facility] Phon e Number [address] POCT Glucose (07/06/2017 11:02 AM EST) athologist Signature POC Glucose 187 65 - 199 [facility] mg/dL [facility] LABORATORY Comment: Supplemental ranges: <140 [...] [facility]/[place] [address] POCT Glucose (07/06/2017 10:18 AM EST) athologist Signature POC Glucose 193 65 - 199 [facility] mg/dL [facility] LABORATORY Comment: Supplemental ranges: <140 mg/dL before meals <180 mg/dL all other times of the day Specimen Anatomical Collection Method Collection Time Receive d Time (Source) Location / / Volume Laterality Blood specimen 07/06/2017 10:18 7 (specimen) AM EST 10:18 AM EST Daphne Shahid MD POINT OF CARE TEST ORDERABLE S Performing Organization Address City/State/ZIP [place] [address] POCT Glucose (07/06/2017 9:25 AM EST) athologist Signature POC Glucose 182 65 - 199 [facility] mg/dL [facility] LABORATORY Comment: Supplemental ranges: <140 mg/dL before meals <180 mg/dL all other times of the day Specimen Anatomical Collection Method Collection Time Receive d Time (Source) Location / / Volume Laterality Blood specimen 07/06/2017 9:25 AM 017 9:25 (specimen) EST AM EST Daphne Shahid MD POINT OF CARE TEST ORDERABLE S Performing Organization Address City/State/ZIP Code Phon e Number [address] (ABNORMAL) Cardiac Enzymes (LEB/CGP) (07/06/2017 8:10 AM EST) athologist [facility] Troponin-T 2.26 (H) 0.00 - [facility] 0.00 ng/mL [facility] LABORATORY Comment: The 99th percentile [...] additional sample may be indicated. Reference: Third [place] Definition of Myocardial Infarction. Journal of the [employer] College [employer] 2012;60:1581-98 CK, Total 124 0 - 200 unit/L [facility] LABORATORY Specimen Anatomical Collection Method Collection Time Receive d Time (Source) Location / / Volume Laterality Blood specimen 07/06/2017 8:10 AM 017 8:23 (specimen) EST AM EST Resulting Agency Comment Spec In Lab Daphne Shahid MD CHEMISTRY ORDERABLES Performing Organization Address City/[facility]/ZIP Code Phon e Number [address] Magnesium (07/06/2017 8:10 AM EST) P athologist Signature Magnesium 0.84 0.69 - 1.07 [facility] mmol/L [facility] LABORATORY Specimen Anatomical Collection Method Collection Time Receive d Time (Source) Location / / Volume Laterality Blood specimen 07/06/2017 8:10 AM 017 8:21 (specimen) EST AM EST Resulting Agency Comment Spec In Lab Daphne Shahid MD CHEMISTRY ORDERABLES Performing Organization Address City/[facility]/ZIP Code Phon e Number [address] (ABNORMAL) Basic Metabolic Panel (non-fasting) (07/06/2017 8:10 AM EST) P athologist Signature Glucose Lvl 199 65 - 199 [facility] mg/dL [facility] LABORATORY Comment: Diabetes: >=200 mg/dL plus symp toms BUN 16 10 - 20 mg/dL [facility] LABORATORY Creatinine 1.04 0.80 - 1.50 mg/dL [facility] [...] or in patients with acute kidney failure. http://Compassoft/DHnkdep http://Compassoft/DHMCnkf Specimen Anatomical Collection Method Collection Time Receive d Time (Source) Location / / Volume Laterality Blood specimen 07/06/2017 8:10 AM 017 8:21 (specimen) EST AM EST Resulting Agency Comment Spec In Lab Daphne Shahid MD CHEMISTRY ORDERABLES Performing Organization Address City/[facility]/ZIP Code Phon e Number [address] POCT Glucose (07/06/2017 7:34 AM EST) athologist Signature POC Glucose 198 65 - 199 [facility] mg/dL [facility] LABORATORY Comment: Supplemental ranges: <140 mg/dL before meals <180 mg/dL all other times of the day Specimen Anatomical Collection Method Collection Time Receive d Time (Source) Location / / Volume Laterality Blood specimen 07/06/2017 7:34 AM 017 7:34 (specimen) EST AM EST Daphne Shahid MD POINT OF CARE TEST ORDERABLE S Performing Organization Address City/State/ZIP Code Phon e Number [address] POCT Glucose (07/06/2017 7:03 AM EST) athologist Signature POC Glucose 181 65 - 199 [facility] mg/dL [facility] LABORATORY Comment: Supplemental ranges: <140 mg/dL before meals <180 mg/dL all other times of the day Specimen Anatomical Collection Method Collection Time Receive d Time (Source) Location / / Volume Laterality Blood specimen 07/06/2017 7:03 AM 017 7:03 (specimen) EST AM EST Daphne Shahid MD POINT OF CARE TEST ORDERABLE S Performing Organization Address City/State/ZIP Code Phon e Number [place] [id number] HOSPITAL LAB[address]ORY [address] XR Chest PA or [...] Signature POC Glucose 172 65 - 199 [facility] RYAN mg/dL [facility] LABORATORY Comment: Supplemental ranges: <140 mg/dL before meals <180 mg/dL all other times of the day Specimen Anatomical Collection Method Collection Time Receive d Time (Source) Location / / Volume Laterality Blood specimen 07/06/2017 6:21 AM 017 6:21 (specimen) EST AM EST Daphne Shahid MD POINT OF CARE TEST ORDERABLE S Performing Organization Address City/State/ZIP Code Phon e Number [address] POCT Glucose (07/06/2017 5:08 AM EST) athologist Signature POC Glucose 154 65 - 199 [facility]/dL [facility] LAB[facility]ORY Comment: Supplemental ranges: <140 mg/dL before meals <180 mg/dL all other times of the day Specimen Anatomical Collection Method Collection Time Receive d Time (Source) Location / / Volume Laterality Blood specimen 07/06/2017 5:08 AM 017 5:08 (specimen) EST AM EST Daphne Shahid MD POINT OF CARE TEST ORDERABLE S Performing Organization Address City/State/[place] [address] POCT Glucose (07/06/2017 4:05 AM EST) athologist Signature POC Glucose 142 65 - 199 [facility] mg/dL [facility] LAB[facility] Comment: Supplemental ranges: <140 mg/dL before meals <180 mg/dL all other times of the day Specimen Anatomical Collection Method Collection Time Receive d Time (Source) Location / / Volume Laterality Blood specimen 07/06/2017 4:05 AM 017 4:05 (specimen) EST AM EST Daphne Shahid MD POINT OF CARE TEST ORDERABLE S Performing Organization Address City/State/[place] [address] POCT Glucose (07/06/2017 3:00 AM EST) athologist [facility] POC Glucose 116 65 - 199 [facility] mg/dL [facility] LABOR[facility] Comment: Supplemental ranges: <140 mg/dL before meals <180 mg/dL all other times of the day Specimen Anatomical Collection Method Collection Time Receive d Time (Source) Location / / Volume Laterality Blood specimen 07/06/2017 3:00 AM 017 3:00 (specimen) EST AM EST Daphne Shahid MD POINT OF CARE TEST ORDERABLE S Performing Organization Address City/[facility] Phon e Number [address] Potassium (07/06/2017 2:20 AM EST) [facility] Potassium 3.9 3.5 - 5.0 [facility] mmol/L [facility] LABORATORY Comment: Please note: ??Patients [...] ORDERABLES Performing Organization Address City/[facility] Phon e Number [address] Differential, Automated (07/06/2017 2:20 AM EST) [facility] Neutrophils % 72.9 % [facility] LABORATORY Neutr Abs (ANC) 5.53 1.70 - [facility] 6.10 [facility] x10(3)/[facility] LABORATORY Lymphocytes % 16.4 % [facility] LABORATORY Lymphocytes Abs 1.2 0.9 - 3.2 [facility] x10(3)/[facility] LABORATORY Monocytes % 9.4 % [facility] LABORATORY Monocyte Abs 0.7 0.3 - 0.9 [facility] x10(3)/[facility] LABORATORY Eosinophils % 0.5 % [facility] LABORATORY Eosinophils Abs 0.0 0.0 - 0.4 [facility] x10(3)/[facility] LABORATORY Basophils % 0.4 % [facility] LABORATORY Basophils Abs 0.0 0.0 - 0.1 [facility] x10(3)/[facility] LABORATORY Immature Gran % 0.40 [...] Melisa Gran Abs 0.03 0.00 - 0.04 x10(3)/[facility] MAR Y [facility] LABORATORY Specimen Anatomical Collection Method Collection Time Receive d Time (Source) Location / / Volume Laterality Blood specimen 07/06/2017 2:20 AM 017 2:33 (specimen) EST AM EST Resulting Agency Comment Spec In Lab Daphne Shahid MD HEMATOLOGY ORDERABLES Performing Organization Address City/State/ZIP [place] [address] (ABNORMAL) Hemogram (07/06/2017 2:20 AM EST) Analysis Performed At Patho logist Time Signature WBC 7.6 4.0 - 9.5 [facility] x10(3)/[facility] LABORATORY RBC 4.52 (L) 4.58 - [facility] 5.54 [facility] x10(6)/[facility] LABORATORY Hemoglobin 13.4 (L) 13.7 - [facility] 16.5 gm/dL [facility] LABORATORY Hematocrit 39.7 (L) 40.5 - [facility] 48.5 % [facility] LABORATORY MCV 87.8 82.9 - [facility] 93.1 fL [facility] LABORATORY MCH 29.6 27.5 - [facility] 32.1 pg [facility] LABORATORY MCHC 33.8 32.0 - [facility] 35.7 gm/dL [facility] LABORATORY Platelets 189 145 - 357 [facility] x10(3)/[facility] LABORATORY RDWSD 45.6 (H) 36.0 - [facility] 45.[address] [facility] LABORATORY RDWCV 14.3 (H) 11.4 - [facility] 13.8 % [facility] LABORATORY MPV 9.1 7.6 - 12.9 [facility] LABORATORY nRBC % Auto 0.0 % [facility] LABORATORY nRBC Abs Auto 0.000 0.000 - [facility] 0.000 [facility] x10(3)/[facility] LABORATORY Specimen Anatomical Collection Method Collection Time Receive d Time (Source) Location / / Volume Laterality Blood specimen 07/06/2017 2:20 AM 017 2:33 (specimen) EST AM EST Resulting Agency Comment Spec In Lab Daphne Shahid MD HEMATOLOGY ORDERABLES Performing Organization Address City/[facility]/ZIP Code Phon e Number [address] (ABNORMAL) APTT (07/06/2017 2:20 AM EST) P athologist Signature PTT 52 (H) 25 - 35 sec [facility]/ZIP Code Phon e Number [address] POCT Glucose (07/06/2017 2:20 AM EST) P athologist Signature POC Glucose 115 65 - 199 [facility] mg/dL [facility] LABORATORY Comment: Supplemental ranges: <140 [...] [facility]/ZIP [place] [address] (ABNORMAL) Cardiac Enzymes (LEB/CGP) (07/06/2017 2:20 AM EST) athologist Signature Troponin-T 2.13 (H) 0.00 - [facility] 0.00 ng/mL [facility] LABORATORY Comment: The 99th percentile [...] additional sample may be indicated. Reference: Third [place] Definition of Myocardial Infarction. Journal of the [employer] College [employer] Cardiology 2012;60:1581-98 CK, Total 129 0 - 200 unit/L [facility] LABORATORY Specimen Anatomical Collection Method Collection Time Receive d Time (Source) Location / / Volume Laterality Blood specimen 07/06/2017 2:20 AM 017 2:33 (specimen) EST AM EST Resulting Agency Comment Spec In Lab Daphne Shahid MD CHEMISTRY ORDERABLES Performing Organization Address City/State/ZIP [place] [address] (ABNORMAL) Hemoglobin A1c (07/06/2017 2:20 AM EST) Analysis Performed At [facility] Time Signature Hemoglobin A1C 6.8 (H) 4.3 - 5.6 [facility] LABORATORY Comment: Reference Range: 4.3 - 5.6% [...] Mellitus, Diabetes Care 2013; 36: Suppl. 1, Q37-23 Est Avg Gluc See note mg/dL [facility] Comment: Estimated Average Glucose [...] into estimated average glucose values. ??Diabetes Care 2008:31(8):0310-0463. Specimen Anatomical Collection Method Collection Time Receive d Time (Source) Location / / Volume Laterality Blood specimen 07/06/2017 2:20 AM 017 2:34 (specimen) EST AM EST Resulting Agency Comment Spec In Lab Daphne Shahid MD CHEMISTRY ORDERABLES Performing Organization Address City/State/ZIP [place] [address] (ABNORMAL) Lipid Panel (07/06/2017 2:20 AM EST) [facility] gist Method Time Signature Chol, Total 150 <=239 [facility] mg/dL [facility] LABORATORY Triglycerides 129 <=199 [facility] mg/dL [facility] LABORATORY HDL 32 (L) >=40 [facility] mg/dL [facility] LABORATORY LDL Cholesterol 92 <=190 [facility] mg/dL [facility] LABORATORY Chol/HDL Ratio 4.7 ratio [facility] LABORATORY Lipid See Note KATALINA Interpretation [facility] LABORATORY Comment: Lipid management should be guided by a p atient? s ASCVD risk, goals and preferences. ACC/AHA Guidelines recommend high intens ity statin if clinical ASCVD or LDL greater than or equal to 190 mg/dL. http://[email or web address].[email or web address]/UDJ-TXV-Gvehtfjww Adults aged 40-75 with LDL 70-189 mg/dL should have their 10 year ASCVD risk estimated with the ACC/AHA ASCVD risk es timator http://tools.acc.org/ZCTVN-Gtnl-Lminuhpi r/ Statin should be discussed if risk [...] [facility]/ZIP Code Phon e Number [address] POCT Glucose (07/06/2017 1:09 AM EST) P athologist Signature POC Glucose 121 65 - 199 [place] RYAN mg/dL [facility] LABORATORY Comment: Supplemental ranges: <140 [...] [facility]/ZIP Code Phon e Number [address] POCT Glucose (07/06/2017 12:06 AM EST) P athologist Signature POC Glucose 147 65 - 199 [facility] RYAN mg/dL [facility] LABORATORY Comment: Supplemental ranges: <140 [...] [facility]/ZIP Code Phon e Number [address] (ABNORMAL) POCT Glucose (07/05/2017 10:56 PM EST) P athologist Signature POC Glucose 200 (H) 65 - 199 [facility] RYAN mg/dL [facility] LABORATORY Comment: Supplemental ranges: <140 mg/dL before meals <180 mg/dL all other times of the day Specimen Anatomical Collection Method Collection Time Receive d Time (Source) Location / / Volume Laterality Blood specimen 07/05/2017 10:56 7 (specimen) PM EST 10:56 PM EST Daphne Shahid MD POINT OF CARE TEST ORDERABLE S Performing Organization Address City/State/[place] [address] (ABNORMAL) POCT Glucose (07/05/2017 10:05 PM EST) P athologist Signature POC Glucose 225 (H) 65 - 199 [facility] mg/dL [facility] Comment: Supplemental ranges: <140 [...] [facility]/[place] [address] (ABNORMAL) POCT Glucose (07/05/2017 9:02 PM EST) athologist Signature POC Glucose 301 (H) 65 - 199 [facility] mg/dL [facility] LAB[facility] Comment: Supplemental ranges: <140 mg/dL before meals <180 mg/dL all other times of the day Specimen Anatomical Collection Method Collection Time Receive d Time (Source) Location / / Volume Laterality Blood specimen 07/05/2017 9:02 PM 017 9:02 (specimen) EST PM EST Daphne Shahid MD POINT OF CARE TEST ORDERABLE S Performing Organization Address City/State/[place] [address] XR Chest PA or [...] 474 ms MUSE SYSTEM (Bezet) Calculated P [place] 50 degrees MUSE SYSTEM Calculated R [place] -28 degrees MUSE SYSTEM Calculated T [place] 90 degrees MUSE SYSTEM INTERPRETATION Sinus tachycardia [...] (ABNORMAL) Differential, Automated (07/05/2017 8:20 PM EST) [facility] Method Time Signature Neutrophils % 88.4 % [facility] LABORATORY Neutr Abs (ANC) 9.08 (H) 1.70 - [facility] 6.10 [facility] x10(3)/[facility] L LABORATORY Lymphocytes % 7.0 % [facility] LABORATORY Lymphocytes Abs 0.7 (L) 0.9 - 3.2 [facility] x10(3)/[facility] LABORATORY Monocytes % 3.7 % [facility] LABORATORY Monocyte Abs 0.4 0.3 - 0.9 [facility] x10(3)/[facility] LABORATORY Eosinophils % 0.1 % [facility] LABORATORY Eosinophils Abs 0.0 0.0 - 0.4 [facility] x10(3)/[facility] LABORATORY Basophils % 0.2 % [facility] LABORATORY Basophils Abs 0.0 0.0 - 0.1 [facility] x10(3)/[facility] LABORATORY Immature Gran % 0.60 % [facility] [...] Gran Abs 0.06 (H) 0.00 - 0.04 x10(3)/[facility] LABORATORY Specimen Anatomical Collection Method Collection Time Receive d Time (Source) Location / / Volume Laterality Blood specimen 07/05/2017 8:20 PM 017 8:27 (specimen) EST PM EST Resulting Agency Comment Spec In Lab Daphne Shahid MD HEMATOLOGY ORDERABLES Performing Organization Address City/State/ZIP [place] [address] (ABNORMAL) Hemogram (07/05/2017 8:20 PM EST) Analysis Performed At Patho logist Time Signature WBC 10.3 (H) 4.0 - 9.5 [facility] x10(3)/[facility] LABORATORY RBC 4.64 4.58 - [facility] 5.54 [facility] x10(6)/[facility] LABORATORY Hemoglobin 14.1 13.7 - [facility] 16.5 gm/dL [facility] LABORATORY Hematocrit 40.8 40.5 - [facility] 48.5 % [facility] LABORATORY MCV 87.9 82.9 - [facility] 93.[address] [facility] LABORATORY MCH 30.4 27.5 - [facility] 32.1 pg [facility] LABORATORY MCHC 34.6 32.0 - [facility] 35.7 gm/dL [facility] LABORATORY Platelets 204 145 - 357 [facility] x10(3)/[facility] LABORATORY RDWSD 46.1 (H) 36.0 - [facility] 45.[address] [facility] LABORATORY RDWCV 14.5 (H) 11.4 - [facility] 13.8 % [facility] LABORATORY MPV 9.7 7.6 - 12.9 [facility] LABORATORY nRBC % Auto 0.0 % [facility] LABORATORY nRBC Abs Auto 0.000 0.000 - [facility] 0.000 [facility] x10(3)/[facility] LABORATORY Specimen Anatomical Collection Method Collection Time Receive d Time (Source) Location / / Volume Laterality Blood specimen 07/05/2017 8:20 PM 017 8:27 (specimen) EST PM EST Resulting Agency Comment Spec In Lab Daphne Shahid MD HEMATOLOGY ORDERABLES Performing Organization Address City/State/ZIP [place] [address] APTT (07/05/2017 8:20 PM EST) P athologist Signature PTT 32 25 - 35 sec [facility] [...] City/State/ZIP [place] [address] (ABNORMAL) Cardiac Enzymes (LEB/CGP) (07/05/2017 8:20 PM EST) athologist Signature Troponin-T 2.11 (H) 0.00 - [facility] 0.00 ng/mL [facility] LABORATORY Comment: The 99th percentile [...] additional sample may be indicated. Reference: Third [place] Definition of Myocardial Infarction. Journal of the [employer] 2012;60:1581-98 CK, Total 149 0 - 200 unit/L [facility] LABORATORY Specimen Anatomical Collection Method Collection Time Receive d Time (Source) Location / / Volume Laterality Blood specimen 07/05/2017 8:20 PM 017 8:27 (specimen) EST PM EST Resulting Agency Comment Spec In Lab Daphne Shahid MD CHEMISTRY ORDERABLES Performing Organization Address City/State/ZIP Code Phon e Number [address] (ABNORMAL) Magnesium (07/05/2017 8:20 PM EST) P athologist Signature Magnesium 0.68 (L) 0.69 - 1.07 [facility] mmol/L [facility] LABORATORY Specimen Anatomical Collection Method Collection Time Receive d Time (Source) Location / / Volume Laterality Blood specimen 07/05/2017 8:20 PM 017 8:27 (specimen) EST PM EST Resulting Agency Comment Spec In Lab Daphne Shahid MD CHEMISTRY ORDERABLES Performing Organization Address City/[facility]/ZIP Code Phon e Number [address] (ABNORMAL) Basic Metabolic Panel (non-fasting) (07/05/2017 8:20 PM EST) athologist Signature Glucose Lvl 321 (H) 65 - 199 [facility] mg/dL [facility] Comment: Diabetes: >=200 mg/dL plus symp toms BUN 20 10 - 20 mg/dL [facility] Creatinine 1.12 0.80 - 1.50 mg/dL [facility] Sodium 139 135 - 145 mmol/L [facility] Potassium 3.8 3.5 - 5.0 mmol/L [facility] [...] or in patients with acute kidney failure. [email or web address] [email or web address] Specimen Anatomical Collection Method Collection Time Receive d Time (Source) Location / / Volume Laterality Blood specimen 07/05/2017 8:20 PM 017 8:27 (specimen) EST PM EST Resulting Agency Comment Spec In Lab Daphne Shahid MD CHEMISTRY ORDERABLES Performing Organization Address City/State/ZIP Code Phon e Number [address] (ABNORMAL) POCT Glucose (07/05/2017 7:32 PM EST) P athologist Signature POC Glucose 296 (H) 65 - 199 [facility] mg/dL [facility] Comment: Supplemental ranges: <140 mg/dL before meals <180 mg/dL all other times of the day Specimen Anatomical Collection Method Collection Time Receive d Time (Source) Location / / Volume Laterality Blood specimen 07/05/2017 7:32 PM 017 7:32 (specimen) EST PM EST Daphne Shahid MD POINT OF CARE TEST ORDERABLE S Performing Organization Address City/State/[place] [address] CARDIAC CATHETERIZATION (07/05/2017 6:47 PM EST) Specimen (Source) Anatomical Location Collection Method / Collectio n Time Received Time / Laterality Volume Narrative CARDIOMAC SYSTEM - 07/05/2017 7:27 PM ES T ?[facility] ? Cardiac Cathete rization/Intervention Report ? Patient Name: Gregory Hoang ? Procedure Date: 07/05/2017 ? A #: [id number] ? Primary Physician: Clarisa, Jet T ? Case #: [id number] ? File Name: [id number] ? Catheterization Order Number: [id number] ? [facility] ? Final Report [place], [place] ? Patient Name: ? Gregory Natalya ?ID#: ?[id number] ? : ?1945 ? Procedure Date: ? June 11 17 ?Case #: ? [id number] ? Room: ? 6 ? Case Physician: [...] presented with: non -STEMI (w/i 7 days). [place] ?[employer] angina c lass was IV. 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 ? Jet Mckenna M.D. ? Electronically Signed by: Jet bunch M.D. ? Report Finalized: 07/05/2017 ??19:23 ? Report Last Ammended: 10/26/2017 ??10:29 ? Procedure Note Jet Mckenna MD - 10/26/2017Formatt ing of this note might be different from the original. [facility] Cardiac Catheterization/Intervention Re port Patient Name: Gregory Hoang Procedure Date: 07/05/2017 A #: [id number] Primary Physician: Jet Mckenna Case #: [id number] File Name: [id number] Catheterization Order Number: [id number] [facility] Final Report [place], [place] Patient Name: Gregory Hoang ID#: [id number] : 1945 Procedure Date: July 05, [...] presented with: non-STEMI ( w/i 7 days). [place] [employer] angina class was IV. 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 Jet Mckenna M.D. Electronically Signed by: Jet [...] Mccollum ? (Age): 1945(72y) Med Rec#: ? [id number] ?Sex: ?M ? Site Loc: ? [facility] ?Ht / Wt: ??173(cm)/86(kg) Pt. Loc: ?CCU ? BSA: ?2 Study Date: ?? 07/05/2017 ?Pt. Type: Inpatient Tape: ? Referring: Daphne Shahid ([id number]) Referring: MANDA ALCANTAR Reading: Blade Preston ([id number]) Jump Roll Operator: Dayami Paula BA, [facility] Diagnosis: *ICD-10-PCS Non-ST elevation (NSTEMI) m [...] E-wave Vmax ?0.8 ?m/sec ? MV deceleration [id number] ?msec ? MV A-wave Vmax ?0.8 ?m/sec [...] ? Mid-Inferior ?Akinetic ? Mid-Inferoseptal ?Hypokinetic ? [place]-Septal ? Akinetic ? [place]-Anterior ? Hypokinetic ? [place]-Lateral ?Hypokinetic ? [place]-Inferior ? Akinetic ? [place]-Tip ?Akinetic ? This report has been electronically sign ed by: _ Blade Preston MD ? 07/06/2017 08 :53:15 Images reviewed and interpretation verif ied [facility] Cardiac Ultrasound Laboratory Procedure Note Blade Preston MD - 07/06/2017Formatt ing of this note might be different from the original. Procedure: Transthoracic Echocardiogram Patient: NATALYA MCBRIDE(Age): [birth year]72y) Med Rec#: [id number] Sex: M Site Loc: [facility] [place] Ht / Wt: 173(cm)/86(kg) Pt. Loc: CCU BSA: 2 Study Date: 07/05/2017 Pt. Type: Inpatie nt Tape: Referring: Daphne Shahid ([id number]) Referring: MANDA ALCANTAR Reading: Blade Preston ([id number]) Jump Roll Operator: Dayami Paula BA, [facility] Diagnosis: *ICD-10-PCS Non-ST elevation (NSTEMI) m [...] MV E-wave Vmax 0.8 m/sec MV deceleration [id number] msec MV A-wave Vmax 0.8 m/sec MV [...] Hypokinetic Mid-Posterolateral Hypokinetic Mid-Inferior Akinetic Mid-Inferoseptal Hypokinetic [place]-Septal Akinetic [place]-Anterior Hypokinetic [place]-Lateral Hypokinetic [place]-Inferior Akinetic [place]-Tip Akinetic This report has been electronically sign ed by: _ Blade Preston MD 07/06/2017 08:53:15 Images reviewed and interpretation verif ied [facility] Cardiac Ultrasound Laboratory Daphne Shahid MD ECHO ORDERABLES Performing Organization Address City/State/ZIP Code Phon e Number [facility] Differential, Automated (07/05/2017 4:55 PM EST) P athologist Signature Neutrophils % 77.0 % [facility] Neutr Abs (ANC) 5.26 1.70 - [facility] 6.10 [facility] x10(3)/[facility] LABORATORY Lymphocytes % 13.3 % [facility] Lymphocytes Abs 0.9 0.9 - 3.2 [facility] x10(3)/[facility] LABORATORY Monocytes % 8.2 % [facility] Monocyte Abs 0.6 0.3 - 0.9 [facility] x10(3)/[facility] LABORATORY Eosinophils % 0.7 % [facility] Eosinophils Abs 0.0 0.0 - 0.4 [facility] x10(3)/[facility] LABORATORY Basophils % 0.4 % [facility] Basophils Abs 0.0 0.0 - 0.1 [facility] x10(3)/[facility] LABORATORY Immature Gran % 0.40 [...] Melisa Gran Abs 0.03 0.00 - 0.04 x10(3)/[facility] LABORATORY Specimen Anatomical Collection Method Collection Time Receive d Time (Source) Location / / Volume Laterality Blood specimen 07/05/2017 4:55 PM 017 5:24 (specimen) EST PM EST Resulting Agency Comment Spec In Lab Daphne Shahid MD HEMATOLOGY ORDERABLES Performing Organization Address City/State/ZIP [place] [address] (ABNORMAL) Hemogram (07/05/2017 4:55 PM EST) Analysis Performed At Patho logist Time Signature WBC 6.8 4.0 - 9.5 [facility] x10(3)/[facility] LABORATORY RBC 4.67 4.58 - [facility] 5.54 [facility] x10(6)/[facility] LABORATORY Hemoglobin 14.0 13.7 - [facility] 16.5 gm/dL [facility] Hematocrit 41.0 40.5 - [facility] 48.5 % [facility] MCV 87.8 82.9 - [facility] 93.1 fL [facility] MCH 30.0 27.5 - [facility] 32.1 pg [facility] MCHC 34.1 32.0 - [facility] 35.7 gm/dL [facility] Platelets 197 145 - 357 [facility] x10(3)/[facility] LABORATORY RDWSD 46.4 (H) 36.0 - [place] 45.[address] [facility] LABORATORY RDWCV 14.5 (H) 11.4 - [facility] 13.8 % [facility] MPV 9.7 7.6 - 12.9 [place] [facility] LABORATORY nRBC % Auto 0.0 % [facility] nRBC Abs Auto 0.000 0.000 - [place] 0.000 [facility] x10(3)/[facility] LABORATORY Specimen Anatomical Collection Method Collection Time Receive d Time (Source) Location / / Volume Laterality Blood specimen 07/05/2017 4:55 PM 017 5:24 (specimen) EST PM EST Resulting Agency Comment Spec In Lab Daphne Shahid MD HEMATOLOGY ORDERABLES Performing Organization Address City/State/ZIP Code Phon e Number [facility] [address] (ABNORMAL) Cardiac Enzymes (LEB/CGP) (07/05/2017 4:55 PM EST) P athologist Signature Troponin-T 1.69 (H) 0.00 - [place] 0.00 ng/mL [facility] Comment: The 99th percentile [...] additional sample may be indicated. Reference: Third [place] Definition of Myocardial Infarction. Journal of the [place] College [employer] 2012;60:1581-98 CK, Total 191 0 - 200 unit/L [facility] Specimen Anatomical Collection Method Collection Time Receive d Time (Source) Location / / Volume Laterality Blood specimen 07/05/2017 4:55 PM 017 5:56 (specimen) EST PM EST Resulting Agency Comment Spec In Lab Daphne Shahid MD CHEMISTRY ORDERABLES Performing Organization Address City/[facility] [place] [address] (ABNORMAL) pro-Brain Natriuretic Peptide (07/05/2017 4:55 PM EST) P athologist Signature ProBNP 1,598 (H) <=125 [facility] pg/mL [facility] Specimen Anatomical Collection Method Collection Time Receive d Time (Source) Location / / Volume Laterality Blood specimen 07/05/2017 4:55 PM 017 5:24 (specimen) EST PM EST Resulting Agency Comment Spec In Lab Daphne Shahid MD CHEMISTRY ORDERABLES Performing Organization Address City/[facility] [place] [address] Magnesium (07/05/2017 4:55 PM EST) P athologist Signature Magnesium 0.78 0.69 - 1.07 [facility] mmol/L [facility] Specimen Anatomical Collection Method Collection Time Receive d Time (Source) Location / / Volume Laterality Blood specimen 07/05/2017 4:55 PM 017 5:24 (specimen) EST PM EST Resulting Agency Comment Spec In Lab Daphne Shahid MD CHEMISTRY ORDERABLES Performing Organization Address City/[facility]/ZIP [facility] [place] [address] (ABNORMAL) Basic Metabolic Panel (non-fasting) (07/05/2017 4:55 PM EST) athologist Signature Glucose Lvl 230 (H) 65 - 199 [facility] mg/dL [facility] Comment: Diabetes: >=200 mg/dL plus symp toms BUN 19 10 - 20 mg/dL [facility] Creatinine 1.04 0.80 - 1.50 mg/dL [facility] [...] or in patients with acute kidney failure. [email or web address] [email or web address] Specimen Anatomical Collection Method Collection Time Receive d Time (Source) Location / / Volume Laterality Blood specimen 07/05/2017 4:55 PM 017 5:24 (specimen) EST PM EST Resulting Agency Comment Spec In Lab Daphne Shahid MD CHEMISTRY ORDERABLES Performing Organization Address City/State/ZIP [place] [address] (ABNORMAL) APTT (07/05/2017 4:55 PM EST) athologist Signature PTT 41 (H) 25 - 35 sec [facility]/ZIP Code Phon e Number [address] (ABNORMAL) POCT Glucose (07/05/2017 4:53 PM EST) P athologist Signature POC Glucose 208 (H) 65 - 199 [facility] mg/dL [facility] Comment: Supplemental ranges: <140 mg/dL before meals <180 mg/dL all other times of the day Specimen Anatomical Collection Method Collection Time Receive d Time (Source) Location / / Volume Laterality Blood specimen 07/05/2017 4:53 PM 017 4:53 (specimen) EST PM EST Daphne Shahid MD POINT OF CARE TEST ORDERABLE S Performing Organization Address City/[facility] [place] [address] EKG 12 Lead (07/05/2017 4:32 PM EST) Component Value Ref Range Test Analysis Performed Pathologis t Method Time At Signature Ventricular rate 97 BPM MUSE SYSTEM Atrial Rate 97 BPM MUSE SYSTEM P-R Interval 148 ms MUSE SYSTEM QRS Duration 96 ms MUSE SYSTEM Q-T Interval 364 ms MUSE SYSTEM QTC Calculated 462 ms MUSE SYSTEM (Bezet) Calculated P [place] 48 degrees MUSE SYSTEM Calculated R [place] -33 degrees MUSE SYSTEM Calculated T [place] 98 degrees MUSE SYSTEM INTERPRETATION Normal sinus [...] Organization Address City/State/ZIP Code Phon e Number [employer] documented in this encounter Visit Diagnoses Diagnosis STEMI (ST elevation myocardial infarctio n) - Primary Acute myocardial infarction, unspecified site, episode of care unspecified Non-ST elevation myocardial infarction ( NSTEMI) Acute myocardial infarction, subendocard ial infarction, episode of care unspecified S/P CABG x 3 Postsurgical aortocoronary bypass status ASHD (arteriosclerotic heart disease) Coronary atherosclerosis of unspecified type of vessel, [place] or graft Cardiomyopathy, ischemic Other specified forms [...] post-op day 1 in the AM Give NV if unable to take PO, Routine Given [...] dose on Wed07/07/17 at 2100, Until Discontinued, [place] teeth, Routine Given 07/08/2017 10:06 PM EST [...] or norepinephrine is ineffective. Call pager # [phone] if initiated. Rate/Dose Change 07/08/2017 7:01 PM [...] if phenyleprine and/or vasopressin ineffective.Call pager # [phone] if initiated., Routine Rate/Dose Change 07/09/2017 1:24 [...] 2.0 L/min/M2. Maximum volume 2 L. Call housekeeper supervisor for additional fluid orders: pager #[phone]. Rate/Dose Verify 07/08/2017 4:00 AM EST 100 [...] post-op day 1 in the AM Give NV if unable to take PO, Routine atorvastatin [...] post-op day 1 in the AM Give NV if unable to take PO
Routine Group [...]
Routine documented in this encounter Care Teams Snow Ranger Relationship Specialty Start Date End Date Lovely Vicente MD PCP - General 04/16/[address] [place] [address] [address] [place] [address] documented as of this encounter
--- OUTSIDE RECORDS SUMMARY | 2022-02-27 15:17 | XMS_ITS | Encounter Summary ---
:1945 Author Organization [facility] Address [facility] [place] [address] Care Team Providers Name Role Phone Lovely Vicente MD Primary Care Provider Reason for Visit Auth/Cert Specialty Diagnoses / Procedures Referred By Contact Refer red To Contact Diagnoses STEMI (ST elevation myocardial infarction) NSTEMI STEMI Procedures CARDIAC CATHETERIZATION NAYE IPI Referral ID Status Reason Start Date Expiration Date Visits Requ ested Visits Authorized [id number] 1 1 Encounter Details Date Type Department Care Team Description 07/07/2017 Surgery Main Operating Room Yuan Webber, @ CABG, USING ARTERIAL Barbara Ocampo MD GRAFT;SINGLE ARTERIAL [facility] GRAFT (WRVU 33.75) [facility] DR Siddiqui [place] [address] SURGERY [phone] [place], [place] [address] (Wo rk) Social History Tobacco [...] in this encounter Discharge Summaries Martha Teague, DRILL OPERATOR AUTOMATIC - 07/14/2017 9:38 AM EST Inpatient - Discharge Summary Patient Name: Gregory Hoang Patient Age: 72 y.o. Birthdate: 1945 Language: Indian Race: White Ethnicity: Not nor Admit Date: [...] , @ 1:20p Patient to follow-up with Application Project Leader/heart failure team in one week. An appointment will be made for you. You may call [phone] Patient to follow-up with Cardiac Surgery, Dr. Yuan Webber, in ~ 4 weeks with CXR, EKG. Inpatient Provider Contact Information: [facility] Section of Cardiac Surgery [facility] [address] FAX [phone] Discharge Diagnoses (Hospital Problems) Primary Diagnoses: CAD [...] SETUP performed by Manny Mcknight MD at [facility] OR ??? PRO CABG, ARTERIAL, SINGLE N/A 07/07/2017 @CABG, USING ARTERIAL GRAFT;SINGLE ARTERIAL GRAFT (WRVU 33.75) performed by Yuan Webber MD at [facility] OR ??? PRO CABG, ARTERY-VEIN, TWO N/A 07/07/2017 @CABG, TWO VENOUS GRAFTS & ARTERIAL GRAFT (WRVU 7.93) performed by Yuan Webber MD at [facility] OR ??? PRO COLONOSCOPY, REMV LESN, SNARE 01/16/2014 COLONOSCOPY, POLYPECTOMY, REMOVAL LESION BY SNARE performed by Nohemi Jaimes MD at [facility] ENDOSCOPY ??? PRO ENDOSCOPY W/VIDEO-ASST VEIN HARVEST, CABG Right 07/07/2017 ENDOSCOPIC HARVEST VEIN(S) FOR CABG (WRVU 0.31) performed by Yuan Webber MD at [facility] OR ??? PRO THYROIDECTOMY 03/28/2013 THYROIDECTOMY, TOTAL OR COMPLETE performed by Manny Mcknight MD at [facility] OR Prior To Admission Medications Prescriptions Prior to Admission Medication Sig Dispense Refill Last Dose ??? levothyroxine (SYNTHROID) 175 mcg Tablet Take 1 tablet by mouth daily. 90 tablet 3 07/05/2017 [id number] ??? ascorbic acid, vitamin C, (VITAMIN C) [...] hospital and ruled infor non-ST segment elevation IN. This almost certainly represents the residual of [...] Gregory Hoang was admitted to [facility] on 07/05/2017 via the Cardiology Service. During his hospital course, he was taken emergently to the label printer for an ongoing STEMI. An IABP was [...] not take or discontinue any prescription or pgea-upg-paxgsjl medications without asking your doctor or pharmacist [...] Webber and/or the Cardiac Surgery Physician Analysis Engineer Team may be reached at . Weight: [...] Dr. Yuan Webber. You may use a [place] Track or treadmill but avoid any pulling [...] friends, go to a movie, go to baptism, etc. Heavy activities: No hunting, skiing, jogging, snow shoveling, snowmobiling, lawn mowing, swimming, golf or tennis until after your return appointment with the surgeon. Do not ride motorcycles, [employer]'s tractors or horses. Avoid the use of [...] should resume a low fat, low cholesterol, [place] Heart Association Diet/Diabetic diet. Driving: No driving [...] , @ 1:20p Patient to follow-up with Application Project Leader/heart failure team in one week. Appointment will be made for you. You may call [phone] Patient to follow-up with Cardiac Surgery, Dr. [...] THREE L Lab 3L [facility] [phone] 09/07/2017 4:00 PM Luz Prescott MD Endocrinology at [place] [phone] Future Orders Complete By Expires EKG 12 Lead [EKG1 Custom] 08/14/2017 02/13/2018 Process Instructions: Scheduling Instructions: Questions: Which DH location will this be performed?: [place] Is a rhythm strip needed?: No If EKG Reason is Pre-op Evaluation, indicate diagnosis for surgery.: XR Chest PA & Lateral (Generic) [39304 [id number] Custom] 08/14/2017 02/13/2018 Process Instructions: Scheduling Instructions: Questions: Where will study be performed?: [facility] Portable exam?: Reason for exam and clinical history: CABG x 3 Other pertinent information: Stat read required?: Date of injury if applicable: Requested Time: Referral to Cardiac Rehab [YEZ319 Custom] As directed Process Instructions: If no progress note charted, please enter Clinical details in comments. Scheduling Instructions: Questions: My question or request is: s/p CABG. Cardiac rehab at [facility] Referral to Home Health - at DISCHARGE [YBK5281 CPT(R)] As directed Process Instructions: Scheduling Instructions: Comments: DOCUMENTATION FOR VNA SERVICES (INCLUDING THOSE PATIENTS WITH MEDICARE COVERAGE REQUIRING HOME VNA SERVICES AND/OR HOSPICE SERVICES) PATIENT'S LOCATION: Gregory Hoang [address] [place] [address] [place] [phone] (home) Telephone Information: Potato Sorter's Name: self In discussion with the attending physician, it is certified that this patient is under their care and that they, or a Nurse Practitioner, or Physician Analysis Engineer who is working directly with them, had [...] HEALTH AGENCY: [facility] ([facility] [place] [facility] in [place] PHONE: [phone] FAX: [phone] RN orders: Cardiopulmonary assessment, incisional assessment, assess vital signs, assessment of rehab progress, medication management and effectiveness, home safety evaluation. Please draw INR if indicated and send result to:Dr Vicente [phone] PT ORDERS: Continue rehab for endurance, gait stability and strength with mobility and transfers. Home safety evaluation. Home exercise program if appropriate. Start of Care Date:24-48 hours after discharge SPECIAL INSTRUCTIONS: For any follow up questions, needs, or issues please call the Cardiac Surgery Office at [phone] FOR MEDICARE ONLY: (please delete this section [...] OR AFTER 07/17/2017 Signed: Martha Teague APRN [facility] Section of Cardiac Surgery [facility] [address] FAX [phone] Date: 07/14/2017 CC: MD Ivania Cr Betsy, PA [address] [place] [phone] documented in this encounter Discharge Instructions Discharge [...] not take or discontinue any prescription or rixh-xhj-gkgwfij medications without asking your doctor or pharmacist [...] Webber and/or the Cardiac Surgery Physician Analysis Engineer Team may be reached at . ?? [...] Dr. Yuan Webber. You may use a [place] Track or treadmill but avoid any pulling [...] friends, go to a movie, go to baptism, etc. ?? Heavy activities: No hunting, skiing, jogging, snow shoveling, snowmobiling, lawn mowing, swimming, golf or tennis until after your return appointment with the surgeon. Do not ride motorcycles, [employer]'s tractors or horses. Avoid the use of [...] should resume a low fat, low cholesterol, [place] Heart Association Diet/Diabetic diet. ?? Driving: No [...] @ 1:20p ?? Patient to follow-up with Application Project Leader/heart failure team in one week. An appointment has been made for you, you can call [phone] ?? Patient to follow-up with Cardiac Surgery, [...] THREE L Lab 3L [facility] [phone] ?? 09/07/2017 4:00 PM Luz Prescott MD Endocrinology at [place] [phone] Future Orders Complete By Expires ?? EKG 12 Lead [EKG1 Custom] 08/14/2017 02/13/2018 ?? Process Instructions: ? Scheduling Instructions: ? Questions: ? Which location will this be performed?: [place] ?? Is a rhythm strip needed?: No ?? If EKG Reason is Pre-op Evaluation, indicate diagnosis for surgery.: ?? XR Chest PA & Lateral (Generic) [[id number] Custom] 08/14/2017 02/13/2018 ?? Process Instructions: ? Scheduling Instructions: ? Questions: ? Where will study be performed?: [facility] ?? Portable exam?: ?? Reason for exam and clinical history: CABG x 3 ?? Other pertinent information: ?? Stat read required?: ?? Date of injury if applicable: ?? Requested Time: ?? Referral to Cardiac Rehab [BVX121 Custom] As directed ? Process Instructions: ?? 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 A letter describing our affiliations was reviewed with them and theywere educated about their right to choose where referrals are placed. Patient requests referral to [facility]. PHONE: [phone] FAX: [phone] Expected date of discharge: 07/14 Referral routed to the Janitor Supervisor for matching with agency/vendor and to provide [...] [facility] Endocr[facility] Diabetes Management Pager [phone] minutes of this 35 minute visit was spent with the patient in counseling on diabetes and treatment plan, reviewing all glucose and insulin data as well as relevant laboratory results with the patient, and coordination of care on the inpatient unit including nursing and primary team. 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 A letter describing our affiliations was reviewed with them and theywere educated about their right to choose where referrals are placed. Patient requests referral to : [facility] ([facility] [place] [facility]-is in [place] PHONE: [phone] FAX: [phone]. Expected date of discharge: 07/14/17 Referral routed to the Janitor Supervisor for matching with agency/vendor and to provide [...] hours. If BG remains greater than 240, mvkrwo33 units (no more than three times) &??call [...] [facility] End[facility] Diabetes Management Pager [phone] minutes of this 25 minute visit [...] infiltration/extravasation Discussed plan of care with MACHINE HEDDLE CLEANER and RN. Elevate exrtemity and apply intermittent Warm compresses. Name of MD contacted Dr. Shaw Brown 07/13/2017 @ 0600 Name of RN contacted Ale Rangel RN Name of Pharmacist if consulted NA Name of Plastics MD ( if consulted) NA (Mandatory photo for infiltrations/ extravasations scoring a stage 2 or greater, but recommended forstage 1)( include measuring tape and identifier in the photo) INTERIOR DESIGN FACULTY MEMBER CARING FOR THIS PATIENT WILL CONTINUE TO [...] measuring tape and identifier in the photo) INTERIOR DESIGN FACULTY MEMBER CARING FOR THIS PATIENT WILL CONTINUE TO [...] regard to both infiltrates addressed by this sports book writer.All of MrMadiha Hoang's responses were entirely appropriate. Images of infiltrates attached here. L Martha Teague, DRILL OPERATOR AUTOMATIC - 07/13/2017 8:01 AM EST Cardiac Surgery Progress Note: ID: [id number] 72 year old male POD#6 s/p CABGx3 [...] discharge. ?? I have met with the patient/wine sales representative to discuss discharge planning needs. I have provided the [facility], Office of Care Management letter from the Aviation Safety Inspector pertaining to rehab referrals. I have also provided a letter describing our affiliations within the [facility] and educated them about their right to choose where referrals are placed. ?? I reviewed the different levels of rehab including SNF, swing, acute and LTAC with the patient/wine sales representative. ?? The patient/wine sales representative has been provided a list of facilities within their preferred geographic area. ?? I have requested that the patient/wine sales representative provide at least three choices for referral. ?? The patient/wine sales representative have requested referrals to: ?? [facility]. [facility] ?? 2. [facility] ?? 3. More to be entered ?? Expected date of discharge: 07/14 Note routed to Janitor Supervisor who will communicate referrals to facilities and [...] hours. If BG remains greater than 240, mtlliu66 units (no more than three times) & [...] hours. If BG remains greater than 240, rbvudr74 units (no more than three times) & call for new basal insulin orders. ??If less than 240 after two hours, give no insulin and resume prior schedule. Will continue to follow Katerin Azul APRN [facility] Endocrinology Diabetes Management Pager [phone] minutes of this 35 minute visit was spent with the patient in counseling on diabetes and treatment plan, reviewing all glucose and insulin data as well as relevant laboratory results with the patient, and coordination of care on the inpatient unit including nursing and primary team. Makayla Stevenson APRN - 07/12/2017 9:52 AM EST Cardiac Surgery Progress Note: ID: [id number] 72 year old male POD#5 s/p CABGx3 [...] 07/11/2017 7:18 PM EST Patient arrived from [facility]. VSS. MSI dressing pulled off with [...] hours. If BG remains greater than 240, ptfonj65 units (no more than three times) & [...] AM EST Cardiac Surgery Progress Note: ID: [id number] 72 year old male POD#4 s/p CABGx3 [...] hours. If BG remains greater than 240, baxmue19 units (no more than three times) & [...] AM EST Cardiac Surgery Progress Note: ID: [id number] 72 year old male POD#3 s/p CABGx3 [...] Gas) No results found for: PHART, PO2ART, OTY9IRW Assessment/Plan: 72 year old male POD#3 s/p [...] Mami Thao - 07/09/2017 6:29 PM EST [employer] Encounter Note Patient Name: Gregory Hoang : [id number] MR#: [id number] Admit Date: 07/05/2017 4:20 PM Hospital Day 4 days Narrative: Patient was sitting in chair, hugging heart pillow, opened his eyes, nodding to come into room Assessment: Patient was sleepy. Intervention and Outcome: Introduced production maintenance mechanic services and patient reached his hand out in appreciation. Follow-up: [employer] remains available for support. Time in Direct [...] 07/09/2017 10:45 AM EST Report given to senior staff specialized employment to cover care Maddison Cee PA - 07/09/2017 9:00 AM EST Cardiac Surgery Progress Note: ID: [id number] 72 year old male POD#2 s/p CABGx3 [...] completed shifts: In: 7977.4 [I.V.:7477.4; Other:500] Out: 2745 [Urine:3000; Other:615] I- 4 L O- 2.7 [...] on rounds. Signed: STEPHANIE Iqbal [facility] Section of Cardiac Surgery Date: 07/09/2017 [...] when IABP d/c'ed. Gretchen Carolina, PT Pager [phone] Maddison Cee PA - 07/08/2017 11:27 AM EST Cardiac Surgery Progress Note: ID: [id number] 72 year old male POD#1 s/p CABGx3 [...] on rounds. Signed: STEPHANIE Iqbal [facility] Section of Cardiac Surgery Date: 07/08/2017 [...] in place in R femoral. No hematoma. PATIENT BILLER- Intact Psych- Anxious Skin- Dry, no peripheral [...] intact. IABP in place in R femoral. PATIENT BILLER- Intact Psych- Anxious Skin- Dry, no peripheral [...] pending CABG - hold metformin - f/u [facility] ?? #Home Meds - continue [...] note for details. DAPHNE SHAHID MD Pager [phone] Jet Mckenna MD - 07/05/2017 6:48 PM EST Preliminary Cardiac Catheterization Procedure Note: Procedure(s) performed: Left heart cath, IABP insertion Access: Right LEAD PROGRAMMER-->8fr IABP A time-out was conducted prior to [...] effect. Heparin gtt maintained. Pt transferred to label printer. documented in this encounter H&P Notes Daphne Shahid MD - 07/05/2017 6:08 PM EST CARDIOLOGY HISTORY & PHYSICAL EXAM Date of Admission: 07/05/2017 ( Hospital Day 0 days ) Responsible Attending: Daphne Shahid MD PCP: Lovely Vicente MD PCP#: [phone] Patient Active Problem List Diagnosis Code ??? [...] load with heparin drip and transferred to [facility]. While there, continued sob, question of chest pain. Stat TTE showing WMA diffusely and EF around 20%. No significant valvular disease. Taken to the label printer urgently for ongoing STEMI. [facility] [...] 0.1 x10(3)/mcL Immature Gran % 0.40 % Melias Gran Abs 0.03 0.00 - 0.04 x10(3)/mcL [...] monitor I/O - s/p lasix in the label printer, redose to aim net neg 1L by [...] Medicine, PGY-2 Cardiology S1, Team Pager # [phone] CARDIOLOGY ATTENDING NOTE Patient: Gregory Hoang Date [...] amenable for PCI. DAPHNE SHAHID MD Pager [phone] documented in this encounter Miscellaneous Notes Consult Note - Daphne Shahid MD - 07/14/2017 11:46 AM EST Heart Failure Service Inpatient Consult Note Gregory Hoang Date of : 1945 Age: 72 y.o. Today's date: 07/14/17 PCP: Lovely Vicente MD TEST FIXTURE ASSEMBLER: None Place of Service: C451-A Reason for [...] SETUP performed by Manny Mcknight MD at [facility] OR ??? PRO CABG, ARTERIAL, SINGLE N/A 07/07/2017 @CABG, USING ARTERIAL GRAFT;SINGLE ARTERIAL GRAFT (WRVU 33.75) performed by Yuan Webber MD at [facility] OR ??? PRO CABG, ARTERY-VEIN, TWO N/A 07/07/2017 @CABG, TWO VENOUS GRAFTS & ARTERIAL GRAFT (WRVU 7.93) performed by Yuan Webber MD at [facility] OR ??? PRO COLONOSCOPY, REMV LESN, SNARE 01/16/2014 COLONOSCOPY, POLYPECTOMY, REMOVAL LESION BY SNARE performed by Nohemi Jaimes MD at [facility] ENDOSCOPY ??? PRO ENDOSCOPY W/VIDEO-ASST VEIN HARVEST, CABG Right 07/07/2017 ENDOSCOPIC HARVEST VEIN(S) FOR CABG (WRVU 0.31) performed by Yuan Webber MD at [facility] OR ??? PRO THYROIDECTOMY 03/28/2013 THYROIDECTOMY, TOTAL OR COMPLETE performed by Manny Mcknight MD at [facility] MAIN OR Outpt Meds: Current Outpatient [...] following studies: EKG 07/14/17: NSR 75 bpm, ADJUNCT INSTRUCTOR IN ECONOMICS anterior infarct, LAD CXR 07/11/17: FINDINGS: Sternotomy wires. The patient has been extubated, left chest tube removed, and Willernie-Suzi catheter removed since the 07/07/2017 study. Atelectasis [...] was discussed with Zehra. Jaden Kelley MD Separator Tender Pager [phone] CARDIOLOGY ATTENDING NOTE Patient: Gregory Hoang Date [...] heart failure clinic. DAPHNE SHAHID MD Pager [phone] Plan of Care - Alden Chavarria, PAR[place]GAL - 07/14/2017 11:35 AM EST Problem: Patient [...] Disposition: home with assist Alden Jorge Genikevin, PAR[place]GAL Pager: [phone] Inpatient Physical Therapy Problem: Acute Rehab Services [...] sit/sit to supine -- Bed Mobility Goal, [place] Level supervision required -- Bed Mobility Goal, [...] - 3 days -- Gait Training Goal, [place] Level supervision required -- Gait Training Goal, [...] days -- Transfer Training Goal, Activity Type erv-uh-solfk/poggj-yt-iso;mts-mx-dwpbb/sbagn-iu-sdg;toilet -- Transfer Train Goal, [place] Level supervision required -- Transfer Training Goal, [...] [continuous indirect monitoring]: Purposeful hourly rounding, call caebllo within reach Patient-specific fall prevention interventions for [...] keeping present for 2 days per family. Shovel Oiler noted of frustrations, house keeping sent to room. Patient offered showered twice, refused. at bedside, frustrated that shower not complete, informed that patient had refused several times. requesting to see DATA COLLECTION ASSOCIATE, paged sent to Martha, will come to bedside (middle of consult). not willing to wait, Martha notified that family had gone home. Encouraged to come for morning rounds a t 8am. Diabetes team at bedside - insulin adjustments made. Call cabello in reach. Continue to monitor. PLAN MOVING FORWARD: Ambulate, dressing changes BID, Please change drsg at 4am per Martha DATA COLLECTION ASSOCIATE request. INDIVIDUALIZED FALL PREVENTION INTERVENTIONS: Patient-specific [...] levels on the lower side, 60ml of Kingsley juice given after a FS of 80. [...] Conf 07/13/17 0502 Interdisciplinary Rounds/Family Conf Participants corrections caseworker;dietitian/nutrition services;nursing;occupational therapy;patient;pharmacy;physical therapy;physician Plan of Care - [...] Anticipated Discharge Disposition: home with assist Pager: [phone] CLARISSA SEGAL, PT 07/12/2017 Physical Therapy Rehabilitation [...] to sit/sit to supine Bed Mobility Goal, [place] Level supervision required Bed Mobility Goal, Additional Goal adheres to psternal precautions for transfer Goal: Gait Training Goal Stand Alone Therapy Goal Outcome: Ongoing (Interventions Implemented as Appropriate) 07/12/17 1225 Gait Training Goal Gait Training Goal, Date Established 07/12/17 Gait Training Goal, Time to Achieve 2 - 3 days Gait Training Goal, [place] Level supervision required Gait Training Goal, Assist [...] 3 days Transfer Training Goal, Activity Type smw-ex-nyajm/mqqqd-ge-plu;mrx-wu-zdcra/czhgv-um-njd;toilet Transfer Train Goal, [place] Level supervision required Transfer Training Goal, Additional [...] IV site, amio to other piv and SEAPORT PLANNING MANAGER at bedside to help assess, IV [...] staff, he stood and marched in place. [place] weak, wanting to sit back down. Remained [...] Health/Prescription Coverage: Primary Insurance: MEDICARE Secondary Insurance: [employer] [place] Prescription Coverage: yes Preferred Pharmacy: [facility] [place] Other: none Primary Care Provider: Lovely Vicente MD [phone] Patient/Caregiver Goals of Treatment:live and get my breath back Potential Needs for Transition of Care: Rehab/SNF: [facility] Home Health: NA DME: TBD Dialysis: na Community Resources: available Transportation: yes Other: none Anticipated Barriers to Discharge/Special Considerations: none Plan: Likely SNF Rehab before home A member of the Care Management team will continue to monitor progress, follow for continuity of care and assist with transition of care planning. ERLIN Weiss Pager: [phone] Consult Note - Katerin Azul RN - [...] management and to provide a review of dry house attendant diabetes care. Diabetes History: Gregory Hoang has [...] patient W/E coverage, Dr. Jeane Tatum, pager [phone] Katerin Azul APRN Endocrinology Diabetes Management Pager [phone] Plan of Care - Walt Stephanie Wyatt [...] Operative Note Patient Name: Gregory Hoang : [id number] MR#: [id number] Case Date: 07/07/2017 Surgeon: Surgeon(s) and Role: * Yuan Webber MD - Primary * Michael Drake PA - Physician Analysis Engineer * Linda Flores PA - Physician Analysis Engineer Preoperative diagnosis: 3VD Postoperative diagnosis: CAD, severe [...] Operative Note Patient Name: Gregory Hoang : [id number] MR#: [id number] Case Date: 07/07/2017 Surgeon: Surgeon(s) and Role: * Yuan Webber MD - Primary * Michael Drake PA - Physician Analysis Engineer * Linda Flores PA - Physician Analysis Engineer Preoperative diagnosis: 3VD Postoperative diagnosis: CAD, severe [...] wall L98.9 ??? Goiter E04.9 ??? MARIA VICTOIRA (obstructive sleep apnea) on CPAP G47.33 ??? [...] major CV events such as , stroke, [place], repeat revascularization compared to PCI). In this [...] code status: Full Code Katty Hahn, MS3 [facility] Cardiology S1 (Pager [phone]) Plan of Care - Emelia Ibarra RN [...] hospital and ruled infor non-ST segment elevation [place]. This almost certainly represents the residual of [...] [facility] Social History: Social History [...] with other involved physicians Yuan Webber MD [phone] Med Student Progress Note - Katty Hahn [...] major CV events such as , stroke, [place], repeat revascularization compared to PCI). In this [...] or BiPAP - s/p lasix in the label printer, was net -1.5L - s/p plavix load, [...] Dispo: [facility] Katty Hahn, M3 [facility] Cardiology S1 (Pager [phone]) Plan of Care - Stephanie Godoy RN - 07/06/2017 5:00 AM EST Problem: Patient Care Overview Goal: Plan of Care Review 07/06/17 0256 Coping/Psychosocial Plan Of Care Reviewed With patient;family [...] in urinal without difficulty. Lasix given in label printer, 1.4 L out at this time. Pt [...] MD [facility] [address] [place], [place] [address] (Wo rk) 06/10/2022 Office Visit Dermatology Laura Scherer MD [facility] DR [address] [place], [place] [address] (Wo rk) Scheduled Orders Name [...] procedure are i n the results section. ADVANCE AGENT SCAN 07/15/2017 12:00 Res ults for this [...] Routine 07/07/2017 5:15 Results f or this ([facility] [...] f or this ([facility]) PM EST procedure are i n the [...] Routine 07/06/2017 2:20 Results f or this ([facility] [...] Routine 07/05/2017 8:20 Results f or this ([facility] [...] 2017 EXAMINATION: XR CHEST PA AND LATERAL ([employer]) CLINICAL HISTORY: CABG x 3 TECHNIQUE: PA [...] [place] at 08/19/2017 10:30 AM Martha Teague DRILL OPERATOR AUTOMATIC IMG DX ORDERABLES SCAN DOC: ADVANCE AGENT (07/15/2017 12:00 AM EST) Narrative 07/15/2017 12:00 [...] POC Glucose 186 65 - [address] [facility] mg/dL [facility] Comment: Supplemental ranges: <140 mg/dL before meals <180 mg/dL all other times of the day Specimen Anatomical Collection Method Collection Time Receive d Time (Source) Location / / Volume Laterality Blood specimen 07/14/2017 11:56 7 (specimen) AM EST 11:56 AM EST Yuan Webber MD POINT OF CARE TEST ORDERABLE S Performing Organization Address City/State/[place] [address] POCT Glucose (07/14/2017 7:52 AM EST) athologist Signature POC Glucose 126 65 - [address] [facility] mg/dL [facility] Comment: Supplemental ranges: <140 mg/dL before meals <180 mg/dL all other times of the day Specimen Anatomical Collection Method Collection Time Receive d Time (Source) Location / / Volume Laterality Blood specimen 07/14/2017 7:52 AM 017 7:52 (specimen) EST AM EST Yuan Webber MD POINT OF CARE TEST ORDERABLE S Performing Organization Address City/[facility]/[place] [address] (ABNORMAL) Prothrombin Time (07/14/2017 4:46 AM EST) athologist Signature PT 26.4 (H) 11.8 - 14.0 [facility] LABORATORY INR 2.4 (H) 0.9 [...] Wilson APRN HEMATOLOGY ORDERABLES Performing Organization Address City/[facility]/[place] [address] Potassium (07/14/2017 4:46 AM EST) athologist Signature Potassium 4.3 3.5 - 5.0 [facility] mmol/L [facility] Comment: Please [...] Address City/State/ZIP Code Phon e Number [address] POCT Glucose (07/14/2017 4:34 AM EST) athologist Signature POC Glucose 115 65 - 199 [place] mg/dL [facility] Comment: Supplemental ranges: <140 mg/dL before meals <180 mg/dL all other times of the day Specimen Anatomical Collection Method Collection Time Receive d Time (Source) Location / / Volume Laterality Blood specimen 07/14/2017 4:34 AM 017 4:34 (specimen) EST AM EST Yuan Webber MD POINT OF CARE TEST ORDERABLE S Performing Organization Address City/[facility]/ZIP Code Phon e Number [address] POCT Glucose (07/13/2017 11:33 PM EST) athologist Signature POC Glucose 132 65 - 199 [place] mg/dL [facility] Comment: Supplemental ranges: <140 mg/dL before meals <180 mg/dL all other times of the day Specimen Anatomical Collection Method Collection Time Receive d Time (Source) Location / / Volume Laterality Blood specimen 07/13/2017 11:33 7 (specimen) PM EST 11:33 PM EST Yuan Webber MD POINT OF CARE TEST ORDERABLE S Performing Organization Address City/[facility]/ZIP Code Phon e [place] [address] POCT Glucose (07/13/2017 9:25 PM EST) athologist Signature POC Glucose 121 65 - 199 [place] mg/dL [facility] Comment: Supplemental ranges: <140 mg/dL before meals <180 mg/dL all other times of the day Specimen Anatomical Collection Method Collection Time Receive d Time (Source) Location / / Volume Laterality Blood specimen 07/13/2017 9:25 PM 017 9:25 (specimen) EST PM EST Yuan Webber MD POINT OF CARE TEST ORDERABLE S Performing Organization Address City/State/[place] [address] POCT Glucose (07/13/2017 4:55 PM EST) athologist Signature POC Glucose 79 65 - 199 [place] mg/dL [facility] Comment: Supplemental [...] Address City/State/ZIP Code Phon e Number [address] POCT Glucose (07/13/2017 11:16 AM EST) athologist Signature POC Glucose 163 65 - 199 [facility] [place] mg/dL [facility] Comment: Supplemental [...] Address City/State/ZIP Code Phon e Number [address] POCT Glucose (07/13/2017 8:07 AM EST) athologist Signature POC Glucose 96 65 - 199 [place] mg/dL [facility] Comment: Supplemental ranges: <140 mg/dL before meals <180 mg/dL all other times of the day Specimen Anatomical Collection Method Collection Time Receive d Time (Source) Location / / Volume Laterality Blood specimen 07/13/2017 8:07 AM 017 8:07 (specimen) EST AM EST Yuan Webber MD POINT OF CARE TEST ORDERABLE S Performing Organization Address City/State/[place] [address] (ABNORMAL) Prothrombin Time (07/13/2017 4:26 AM EST) P athologist Signature PT 20.8 (H) 11.8 - 14.0 [facility] LABORATORY INR 1.8 (H) 0.9 [...] Organization Address City/State/[place] [address] (ABNORMAL) Basic Metabolic Panel (non-fasting) (07/13/2017 4:26 AM EST) athologist Signature Glucose Lvl 95 65 - [address] [facility] mg/dL [facility] Comment: Diabetes: >=200 mg/dL plus symp toms BUN 25 (H) 10 - 20 mg/dL [facility] Creatinine 1.19 0.80 - 1.50 mg/dL [facility] Sodium 143 135 - 145 mmol/L [facility] Potassium 3.7 3.5 - 5.0 mmol/L [facility] [...] Calcium 7.7 (L) 8.5 - 10.5 mg/dL [facility] Estimated GFR 60 >=60 [facility] Comment: The reported eGFR should be multiplied b y 1.2 for patients. The MDRD is not an appropriate measure o f renal function for patients with body mass extremes or in patients with acute kidney failure. http://SETVI/DHnkdep http://SETVI/DHMCnkf Specimen Anatomical Collection Method Collection Time Receive d Time (Source) Location / / Volume Laterality Blood specimen 07/13/2017 4:26 AM 017 4:46 (specimen) EST AM EST Resulting Agency Comment Spec In Lab Makayla Wilson APRN CHEMISTRY ORDERABLES Performing Organization Address City/[facility]/ZIP Code Phon e Number [address] POCT Glucose (07/13/2017 3:52 AM EST) athologist Signature POC Glucose 93 65 - 199 [facility] mg/dL [facility] Comment: Supplemental [...] Address City/State/ZIP Code Phon e Number [address] POCT Glucose (07/13/2017 12:21 AM EST) athologist Signature POC Glucose 80 65 - 199 [facility] mg/dL [facility] Comment: Supplemental [...] Address City/State/ZIP Code Phon e Number [address] POCT Glucose (07/12/2017 8:22 PM EST) athologist Signature POC Glucose 119 65 - 199 [place] mg/dL [facility] Comment: Supplemental ranges: <140 mg/dL before meals <180 mg/dL all other times of the day Specimen Anatomical Collection Method Collection Time Receive d Time (Source) Location / / Volume Laterality Blood specimen 07/12/2017 8:22 PM 017 8:22 (specimen) EST PM EST Yuan Webber MD POINT OF CARE TEST ORDERABLE S Performing Organization Address City/[facility]/ZIP Code Phon e Number [address] POCT Glucose (07/12/2017 4:02 PM EST) athologist Signature POC Glucose 114 65 - 199 [place] mg/dL [facility] Comment: Supplemental ranges: <140 mg/dL before meals <180 mg/dL all other times of the day Specimen Anatomical Collection Method Collection Time Receive d Time (Source) Location / / Volume Laterality Blood specimen 07/12/2017 4:02 PM 017 4:02 (specimen) EST PM EST Yuan Webber MD POINT OF CARE TEST ORDERABLE S Performing Organization Address City/[facility]/[place] [address] POCT Glucose (07/12/2017 11:28 AM EST) athologist Signature POC Glucose 164 65 - 199 [place] mg/dL [facility] Comment: Supplemental [...] Address City/State/ZIP Code Phon e Number [address] POCT Glucose (07/12/2017 7:34 AM EST) athologist Signature POC Glucose 109 65 - 199 [facility] mg/dL [facility] Comment: Supplemental ranges: <140 mg/dL before meals <180 mg/dL all other times of the day Specimen Anatomical Collection Method Collection Time Receive d Time (Source) Location / / Volume Laterality Blood specimen 07/12/2017 7:34 AM 017 7:34 (specimen) EST AM EST Yuan Webber MD POINT OF CARE TEST ORDERABLE S Performing Organization Address City/State/[place] [address] (ABNORMAL) Basic Metabolic Panel (non-fasting) (07/12/2017 4:11 AM EST) athologist Signature Glucose Lvl 92 65 - 199 [facility] mg/dL [facility] Comment: Diabetes: >=200 mg/dL plus symp toms BUN 31 (H) 10 - 20 mg/dL [facility] Creatinine 1.23 0.80 - 1.50 mg/dL [facility] Sodium 145 135 - 145 mmol/L [facility] Potassium Not Perf 3.5 - 5.0 mmol/L [facility] Comment: Duplicate order Please [...] Gap Not Calculated 5 - 15 mmol/L [facility] Calcium 8.1 (L) 8.5 - 10.5 mg/dL [facility] Estimated GFR 58 (L) >=60 [facility] Comment: The reported eGFR should be multiplied b y 1.2 for patients. The MDRD is not an appropriate measure o f renal function for patients with body mass extremes or in patients with acute kidney failure. http://SETVI/DHnkdep http://SETVI/DHMCnkf Specimen Anatomical Collection Method Collection Time Receive d Time (Source) Location / / Volume Laterality Blood specimen 07/12/2017 4:11 AM 017 8:57 (specimen) EST AM EST Resulting Agency Comment Spec [facility] CHEMISTRY ORDERABLES Performing Organization Address [facility] Phon e Number [address] (ABNORMAL) Prothrombin Time (07/12/2017 4:11 AM EST) P athologist Signature PT 15.4 (H) 11.8 - 14.0 [facility] LABORATORY INR 1.2 (H) 0.9 [...] [place] STACIE HEMATOLOGY ORDERABLES Performing Organization Address [facility] Phon e Number [address] Potassium (07/12/2017 4:11 AM EST) P athologist Signature Potassium 3.8 3.5 - 5.0 [facility] mmol/L [facility] Comment: Please [...] Wilson APRN CHEMISTRY ORDERABLES Performing Organization Address City/[facility]/ZIP [facility] Phon e Number [address] POCT Glucose (07/12/2017 4:10 AM EST) athologist Signature POC Glucose 90 65 - 199 [facility] Comment: [...] Organization Address City/[facility] Code Phon e Number [address] POCT Glucose (07/11/2017 11:57 PM EST) athologist Signature POC Glucose 98 65 - 199 [facility] Comment: [...] Organization Address City/[facility]/ZIP Code Phon e Number [address] POCT Glucose (07/11/2017 8:32 PM EST) P athologist Signature POC Glucose 146 65 - 199 [place] mg/dL [facility] Comment: Supplemental ranges: <140 mg/dL before meals <180 mg/dL all other times of the day Specimen Anatomical Collection Method Collection Time Receive d Time (Source) Location / / Volume Laterality Blood specimen 07/11/2017 8:32 PM 017 8:32 (specimen) EST PM EST Yuan Webber MD POINT OF CARE TEST ORDERABLE S Performing Organization Address City/State/[place] [address] XR Chest PA & [...] e xtubated, left chest tube removed, and Willernie-Suzi catheter removed since the study. Atelectasis at [...] e xtubated, left chest tube removed, and Willernie-Suzi catheter removed since the study. Atelectasis at [...] (H) 65 - 199 [place] mg/dL [facility] Comment: Supplemental ranges: <140 mg/dL before meals <180 mg/dL all other times of the day Specimen Anatomical Collection Method Collection Time Receive d Time (Source) Location / / Volume Laterality Blood specimen 07/11/2017 4:05 PM 017 4:05 (specimen) EST PM EST Yuan Webber MD POINT OF CARE TEST ORDERABLE S Performing Organization Address City/[facility]/ZIP Code Phon e Number [address] POCT Glucose (07/11/2017 11:55 AM EST) athologist Signature POC Glucose 176 65 - 199 [place] mg/dL [facility] Comment: Supplemental ranges: <140 mg/dL before meals <180 mg/dL all other times of the day Specimen Anatomical Collection Method Collection Time Receive d Time (Source) Location / / Volume Laterality Blood specimen 07/11/2017 11:55 7 (specimen) AM EST 11:55 AM EST Yuan Webber MD POINT OF CARE TEST ORDERABLE S Performing Organization Address City/State/[place] [address] POCT Glucose (07/11/2017 7:53 AM EST) athologist Signature POC Glucose 189 65 - 199 [place] mg/dL [facility] Comment: Supplemental ranges: <140 mg/dL before meals <180 mg/dL all other times of the day Specimen Anatomical Collection Method Collection Time Receive d Time (Source) Location / / Volume Laterality Blood specimen 07/11/2017 7:53 AM 017 7:53 (specimen) EST AM EST Yuan Webber MD POINT OF CARE TEST ORDERABLE S Performing Organization Address City/State/[place] [address] POCT Glucose (07/11/2017 4:22 AM EST) athologist Signature POC Glucose 151 65 - 199 [place] mg/dL [facility] Comment: Supplemental ranges: <140 mg/dL before meals <180 mg/dL all other times of the day Specimen Anatomical Collection Method Collection Time Receive d Time (Source) Location / / Volume Laterality Blood specimen 07/11/2017 4:22 AM 017 4:22 (specimen) EST AM EST Yuan Webber MD POINT OF CARE TEST ORDERABLE S Performing Organization Address City/[facility]/[place] [address] Potassium (07/11/2017 2:20 AM EST) athologist Signature Potassium 4.5 3.5 - 5.0 [facility]/L [facility] Comment: Please [...] Webber MD CHEMISTRY ORDERABLES Performing Organization Address City/[facility]/ZIP Code Phon e Number [address] POCT Glucose (07/11/2017 12:17 AM EST) athologist Signature POC Glucose 162 65 - 199 [place] mg/dL [facility] Comment: Supplemental ranges: <140 mg/dL before meals <180 mg/dL all other times of the day Specimen Anatomical Collection Method Collection Time Receive d Time (Source) Location / / Volume Laterality Blood specimen 07/11/2017 12:17 7 (specimen) AM EST 12:17 AM EST Yuan Webber MD POINT OF CARE TEST ORDERABLE S Performing Organization Address City/State/[place] [address] POCT Glucose (07/10/2017 8:47 PM EST) athologist Signature POC Glucose 191 65 - 199 [place] mg/dL [facility] Comment: Supplemental ranges: <140 mg/dL before meals <180 mg/dL all other times of the day Specimen Anatomical Collection Method Collection Time Receive d Time (Source) Location / / Volume Laterality Blood specimen 07/10/2017 8:47 PM 017 8:47 (specimen) EST PM EST Yuan Webber MD POINT OF CARE TEST ORDERABLE S Performing Organization Address City/State/[place] [address] POCT Glucose (07/10/2017 4:06 PM EST) athologist Signature POC Glucose 131 65 - 199 [place] mg/dL [facility] Comment: Supplemental [...] Address City/State/ZIP Code Phon e Number [address] POCT Glucose (07/10/2017 3:08 PM EST) athologist Signature POC Glucose 151 65 - 199 [facility] mg/dL [facility] Comment: Supplemental [...] Address City/State/ZIP Code Phon e Number [address] POCT Glucose (07/10/2017 2:25 PM EST) athologist Signature POC Glucose 146 65 - 199 [place] mg/dL [facility] Comment: Supplemental ranges: <140 mg/dL before meals <180 mg/dL all other times of the day Specimen Anatomical Collection Method Collection Time Receive d Time (Source) Location / / Volume Laterality Blood specimen 07/10/2017 2:25 PM 017 2:25 (specimen) EST PM EST Yuan Webber MD POINT OF CARE TEST ORDERABLE S Performing Organization Address City/State/[place] [address] POCT Glucose (07/10/2017 1:23 PM EST) athologist Signature POC Glucose 166 65 - 199 [place] mg/dL [facility] Comment: Supplemental ranges: <140 mg/dL before meals <180 mg/dL all other times of the day Specimen Anatomical Collection Method Collection Time Receive d Time (Source) Location / / Volume Laterality Blood specimen 07/10/2017 1:23 PM 017 1:23 (specimen) EST PM EST Yuan Webber MD POINT OF CARE TEST ORDERABLE S Performing Organization Address City/State/[place] [address] POCT Glucose (07/10/2017 11:52 AM EST) athologist Signature POC Glucose 157 65 - 199 [place] mg/dL [facility] Comment: Supplemental [...] Address City/State/ZIP Code Phon e Number [address] POCT Glucose (07/10/2017 11:01 AM EST) P athologist Signature POC Glucose 158 65 - 199 [place] mg/dL [facility] Comment: Supplemental ranges: <140 mg/dL before meals <180 mg/dL all other times of the day Specimen Anatomical Collection Method Collection Time Receive d Time (Source) Location / / Volume Laterality Blood specimen 07/10/2017 11:01 7 (specimen) AM EST 11:01 AM EST Yuan Webber MD POINT OF CARE TEST ORDERABLE S Performing Organization Address City/[facility]/ZIP Code Phon e Number [address] POCT Glucose (07/10/2017 9:54 AM EST) P athologist Signature POC Glucose 160 65 - 199 [place] mg/dL [facility] Comment: Supplemental [...] Address City/State/ZIP Code Phon e Number [address] POCT Glucose (07/10/2017 8:58 AM EST) P athologist Signature POC Glucose 183 65 - 199 [place] mg/dL [facility] Comment: Supplemental [...] Address City/State/ZIP Code Phon e Number [address] POCT Glucose (07/10/2017 8:01 AM EST) athologist Signature POC Glucose 173 65 - 199 [place] mg/dL [facility] Comment: Supplemental [...] Address City/State/ZIP Code Phon e Number [address] POCT Glucose (07/10/2017 7:05 AM EST) athologist Signature POC Glucose 166 65 - 199 [place] mg/dL [facility] Comment: Supplemental [...] Address City/State/ZIP Code Phon e Number [address] POCT Glucose (07/10/2017 6:00 AM EST) athologist Signature POC Glucose 162 65 - 199 [facility] mg/dL [facility] Comment: Supplemental [...] City/State/ZIP Code Phon e Number [place] [phone] [facility] LABORATORY Drive (ABNORMAL) Differential, Automated (07/10/2017 4:28 AM EST) [facility] Method Time Signature Neutrophils % 87.9 % [facility]ORY Neutr Abs (ANC) 10.70 (H) 1.70 - [facility] 6.10 [facility] x10(3)/[facility] L LABORATORY Lymphocytes % 3.9 % [facility] Lymphocytes Abs 0.5 (L) 0.9 - 3.2 [facility] x10(3)/[facility] LABORATORY Monocytes % 7.0 % [facility]ORY Monocyte Abs 0.8 0.3 - 0.9 [facility] x10(3)/[facility] LABORATORY Eosinophils % 0.3 % [facility]ORY Eosinophils Abs 0.0 0.0 - 0.4 [facility] x10(3)/[facility] LABORATORY Basophils % 0.2 % [facility]ORY Basophils Abs 0.0 0.0 - 0.1 [facility] x10(3)/[facility] LABORATORY Immature Gran % 0.70 [...] Webber MD HEMATOLOGY ORDERABLES Performing Organization Address City/[facility]/ZIP Code Phon e Number [place] [phone] (ABNORMAL) Hemogram (07/10/2017 4:28 AM EST) Analysis Performed At Patho logist Time Signature WBC 12.2 (H) 4.0 - 9.5 [facility] x10(3)/[facility] LABORATORY RBC 3.31 (L) 4.58 - [facility] 5.54 [facility] x10(6)/[facility] LABORATORY Hemoglobin 9.8 (L) 13.7 - [facility] 16.5 gm/dL [facility] Hematocrit 30.0 (L) 40.5 - [facility] 48.5 % [facility] MCV 90.6 82.9 - [facility] 93.1 [facility] LABORATORY MCH 29.6 27.5 - [facility] 32.1 pg [facility] MCHC 32.7 32.0 - [facility] 35.7 gm/dL [facility] Platelets 135 (L) 145 - 357 [facility] x10(3)/[facility] LABORATORY RDWSD 50.8 (H) 36.0 - [facility] 45.0 [facility] LABORATORY RDWCV 15.4 (H) 11.4 - [facility] 13.8 % [facility] MPV 10.0 7.6 - 12.9 [facility] LABORATORY nRBC % Auto 0.0 % [facility] LAB[facility]ORY nRBC Abs Auto 0.000 0[address]000 - [facility] 0.000 [facility] x10(3)/[facility] LABORATORY Specimen Anatomical Collection Method Collection Time Receive d Time (Source) Location / / Volume Laterality Blood specimen 07/10/2017 4:28 AM 017 4:36 (specimen) EST AM EST Resulting Agency Comment Spec In Lab Yuan Webber MD HEMATOLOGY ORDERABLES Performing Organization Address City/State/ZIP Code Phon e Number [place], [place] [id number] (ABNORMAL) Basic Metabolic Panel (non-fasting) (07/10/2017 4:28 AM EST) P athologist Signature Glucose Lvl 178 65 - [address] [facility] mg/dL [facility] Comment: Diabetes: >=200 mg/dL plus symp toms BUN 20 10 - 20 mg/dL [facility] Creatinine 1.19 0.80 - 1.50 mg/dL [facility] Calcium 7.4 (L) 8.5 - 10.5 mg/dL [facility] Estimated GFR 60 >=60 [facility] Comment: The reported eGFR should be multiplied b y 1.2 for patients. The MDRD is not an appropriate measure o f renal function for patients with body mass extremes or in patients with acute kidney failure. http://[employer]Contentful/DHnkdep http://SETVI/DHMCnkf Specimen Anatomical Collection Method Collection Time Receive d Time (Source) Location / / Volume Laterality Blood specimen 07/10/2017 4:28 AM 017 4:36 (specimen) EST AM EST Resulting Agency Comment Spec In Lab Yuan Webber MD CHEMISTRY ORDERABLES Performing Organization Address City/State/[place] [address] POCT Glucose (07/10/2017 4:26 AM EST) P athologist Signature POC Glucose 176 65 - [address] [facility] mg/dL [facility] Comment: Supplemental [...] Address City/State/ZIP Code Phon e Number [address] (ABNORMAL) POCT Glucose (07/10/2017 3:06 AM EST) P athologist Signature POC Glucose 204 (H) 65 - 199 [place] mg/dL [facility] Comment: Supplemental ranges: <140 mg/dL before meals <180 mg/dL all other times of the day Specimen Anatomical Collection Method Collection Time Receive d Time (Source) Location / / Volume Laterality Blood specimen 07/10/2017 3:06 AM 017 3:06 (specimen) EST AM EST Yuan Webber MD POINT OF CARE TEST ORDERABLE S Performing Organization Address City/[facility]/[place] [address] (ABNORMAL) POCT Glucose (07/10/2017 2:10 AM EST) P athologist Signature POC Glucose 203 (H) 65 - 199 [place] mg/dL [facility] Comment: Supplemental [...] Address City/State/ZIP Code Phon e Number [address] POCT Glucose (07/10/2017 1:09 AM EST) P athologist Signature POC Glucose 196 65 - 199 [facility] [place] mg/dL [facility] Comment: Supplemental ranges: <140 mg/dL before meals <180 mg/dL all other times of the day Specimen Anatomical Collection Method Collection Time Receive d Time (Source) Location / / Volume Laterality Blood specimen 07/10/2017 1:09 AM 017 1:09 (specimen) EST AM EST Yuan Webber MD POINT OF CARE TEST ORDERABLE S Performing Organization Address City/State/[place] [address] POCT Glucose (07/10/2017 12:10 AM EST) P athologist Signature POC Glucose 173 65 - 199 [place] mg/dL [facility] Comment: Supplemental ranges: <140 mg/dL before meals <180 mg/dL all other times of the day Specimen Anatomical Collection Method Collection Time Receive d Time (Source) Location / / Volume Laterality Blood specimen 07/10/2017 12:10 7 (specimen) AM EST 12:10 AM EST Yuan Webber MD POINT OF CARE TEST ORDERABLE S Performing Organization Address City/State/[place] [address] POCT Glucose (07/09/2017 11:01 PM EST) P athologist Signature POC Glucose 140 65 - 199 [place] mg/dL [facility] Comment: Supplemental ranges: <140 mg/dL before meals <180 mg/dL all other times of the day Specimen Anatomical Collection Method Collection Time Receive d Time (Source) Location / / Volume Laterality Blood specimen 07/09/2017 11:01 7 (specimen) PM EST 11:01 PM EST Yuan Webber MD POINT OF CARE TEST ORDERABLE S Performing Organization Address City/State/[place] [address] POCT Glucose (07/09/2017 10:05 PM EST) P athologist Signature POC Glucose 144 65 - 199 [facility] [place] mg/dL [facility] Comment: Supplemental [...] Address City/State/ZIP Code Phon e Number [address] POCT Glucose (07/09/2017 9:31 PM EST) athologist Signature POC Glucose 121 65 - 199 [place] mg/dL [facility] Comment: Supplemental ranges: <140 mg/dL before meals <180 mg/dL all other times of the day Specimen Anatomical Collection Method Collection Time Receive d Time (Source) Location / / Volume Laterality Blood specimen 07/09/2017 9:31 PM 017 9:31 (specimen) EST PM EST Yuan Webber MD POINT OF CARE TEST ORDERABLE S Performing Organization Address City/[facility]/ZIP Code Phon e Number [address] POCT Glucose (07/09/2017 9:03 PM EST) athologist Signature POC Glucose 98 65 - 199 [place] mg/dL [facility] Comment: Supplemental ranges: <140 mg/dL before meals <180 mg/dL all other times of the day Specimen Anatomical Collection Method Collection Time Receive d Time (Source) Location / / Volume Laterality Blood specimen 07/09/2017 9:03 PM 017 9:03 (specimen) EST PM EST Yuan Webber MD POINT OF CARE TEST ORDERABLE S Performing Organization Address City/[facility]/[place] [address] POCT Glucose (07/09/2017 8:09 PM EST) athologist Signature POC Glucose 117 65 - 199 [place] mg/dL [facility] Comment: Supplemental [...] Address City/State/ZIP Code Phon e Number [address] POCT Glucose (07/09/2017 5:40 PM EST) athologist Signature POC Glucose 155 65 - 199 [place] mg/dL [facility] Comment: Supplemental ranges: <140 mg/dL before meals <180 mg/dL all other times of the day Specimen Anatomical Collection Method Collection Time Receive d Time (Source) Location / / Volume Laterality Blood specimen 07/09/2017 5:40 PM 017 5:40 (specimen) EST PM EST Yuan Webber MD POINT OF CARE TEST ORDERABLE S Performing Organization Address City/[facility]/ZIP Code Phon e Number [address] POCT Glucose (07/09/2017 4:24 PM EST) athologist Signature POC Glucose 164 65 - 199 [facility] mg/dL [facility] Comment: Supplemental [...] Address City/State/ZIP Code Phon e Number [address] POCT Glucose (07/09/2017 3:19 PM EST) athologist Signature POC Glucose 166 65 - 199 [facility] mg/dL [facility] Comment: Supplemental ranges: <140 mg/dL before meals <180 mg/dL all other times of the day Specimen Anatomical Collection Method Collection Time Receive d Time (Source) Location / / Volume Laterality Blood specimen 07/09/2017 3:19 PM 017 3:19 (specimen) EST PM EST Yuan Webber MD POINT OF CARE TEST ORDERABLE S Performing Organization Address City/State/[place] [address] POCT Glucose (07/09/2017 2:26 PM EST) athologist Signature POC Glucose 179 65 - 199 [place] mg/dL [facility] Comment: Supplemental ranges: <140 mg/dL before meals <180 mg/dL all other times of the day Specimen Anatomical Collection Method Collection Time Receive d Time (Source) Location / / Volume Laterality Blood specimen 07/09/2017 2:26 PM 017 2:26 (specimen) EST PM EST Yuan Webber MD POINT OF CARE TEST ORDERABLE S Performing Organization Address City/[facility]/[place] [address] (ABNORMAL) POCT Glucose (07/09/2017 1:29 PM EST) athologist Signature POC Glucose 210 (H) 65 - 199 [place] mg/dL [facility] Comment: Supplemental ranges: <140 mg/dL before meals <180 mg/dL all other times of the day Specimen Anatomical Collection Method Collection Time Receive d Time (Source) Location / / Volume Laterality Blood specimen 07/09/2017 1:29 PM 017 1:29 (specimen) EST PM EST Yuan Webber MD POINT OF CARE TEST ORDERABLE S Performing Organization Address City/State/[place] [address] POCT Glucose (07/09/2017 12:20 PM EST) athologist Signature POC Glucose 172 65 - 199 [place] mg/dL [facility] Comment: Supplemental ranges: <140 mg/dL before meals <180 mg/dL all other times of the day Specimen Anatomical Collection Method Collection Time Receive d Time (Source) Location / / Volume Laterality Blood specimen 07/09/2017 12:20 7 (specimen) PM EST 12:20 PM EST Yuan Webber MD POINT OF CARE TEST ORDERABLE S Performing Organization Address City/State/[place] [address] [facility] [address] POCT Glucose (07/09/2017 11:24 AM EST) P athologist Signature POC Glucose 156 65 - 199 [place] mg/dL [facility] Comment: Supplemental ranges: <140 mg/dL before meals <180 mg/dL all other times of the day Specimen Anatomical Collection Method Collection Time Receive d Time (Source) Location / / Volume Laterality Blood specimen 07/09/2017 11:24 7 (specimen) AM EST 11:24 AM EST Yuan Webber MD POINT OF CARE TEST ORDERABLE S Performing Organization Address City/State/[place] [address] [facility] [address] POCT Glucose (07/09/2017 11:11 AM EST) athologist Signature POC Glucose 172 65 - 199 [place] mg/dL [facility] Comment: Supplemental ranges: <140 mg/dL before meals <180 mg/dL all other times of the day Specimen Anatomical Collection Method Collection Time Receive d Time (Source) Location / / Volume Laterality Blood specimen 07/09/2017 11:11 7 (specimen) AM EST 11:11 AM EST Yuan Webber MD POINT OF CARE TEST ORDERABLE S Performing Organization Address City/State/[place] [address] [facility] [address] POCT Glucose (07/09/2017 10:08 AM EST) athologist Signature POC Glucose 176 65 - 199 [place] mg/dL [facility] Comment: Supplemental ranges: <140 mg/dL before meals <180 mg/dL all other times of the day Specimen Anatomical Collection Method Collection Time Receive d Time (Source) Location / / Volume Laterality Blood specimen 07/09/2017 10:08 7 (specimen) AM EST 10:08 AM EST Yuan Webber MD POINT OF CARE TEST ORDERABLE S Performing Organization Address City/State/[place] [address] POCT Glucose (07/09/2017 8:02 AM EST) P athologist Signature POC Glucose 178 65 - [address] [facility] mg/dL [facility] Comment: Supplemental ranges: <140 mg/dL before meals <180 mg/dL all other times of the day Specimen Anatomical Collection Method Collection Time Receive d Time (Source) Location / / Volume Laterality Blood specimen 07/09/2017 8:02 AM 017 8:02 (specimen) EST AM EST Yuan Webber MD POINT OF CARE TEST ORDERABLE S Performing Organization Address City/State/[place] [address] (ABNORMAL) BLOOD GAS 2 ARTERIAL (07/09/2017 5:37 AM EST) Analysis Performed At Patho logist Time Signature pH Art 7.36 7.35 - [facility] 7.45 [facility] pCO2 Art 38 35 - 45 [facility] LABORATORY pO2 Art 79 (L) 85 - 104 [facility] LABORATORY HCO3 Art 20.9 [address] - [facility] 26.0 [facility] mmol/L [facility] BE Art -4.6 (L) -3.0 - 3.0 [facility] mmol/L [facility] Hgb Blood Gas 10.5 (L) 13.7 - [facility] 16.5 gm/dL [facility] O2HB Art 93.8 (L) 94.0 - [facility] 97.0 % [facility] COHB Art 0.3 % [facility] [...] Blood 113 (H) 98 - 107 mmol/L [facility] Gluc Whole Bld 175 65 - 199 mg/dL [facility] Comment: Diabetes: >=200 mg/dL plus symp toms. Lactate WB 1.0 0.5 - 2.2 mmol/L [facility] FIO2 Art 40 % [facility] PF Ratio Art 198 [facility] LAB[facility]ORY Specimen Anatomical Collection Method Collection Time Receive d Time (Source) Location / / Volume Laterality Blood specimen 07/09/2017 5:37 AM 017 5:37 (specimen) EST AM EST Yuan Webber MD CHEMISTRY ORDERABLES Performing Organization Address City/[facility]/[place] [address] POCT Glucose (07/09/2017 3:27 AM EST) P athologist Signature POC Glucose 192 65 - [address] [facility] mg/dL [facility] Comment: Supplemental ranges: <140 mg/dL before meals <180 mg/dL all other times of the day Specimen Anatomical Collection Method Collection Time Receive d Time (Source) Location / / Volume Laterality Blood specimen 07/09/2017 3:27 AM 017 3:27 (specimen) EST AM EST Yuan Webber MD POINT OF CARE TEST ORDERABLE S Performing Organization Address City/[facility]/[place] [address] (ABNORMAL) Basic Metabolic Panel (non-fasting) (07/09/2017 2:30 AM EST) P athologist Signature Glucose Lvl 179 65 - [address] [facility] mg/dL [facility] Comment: Diabetes: >=200 mg/dL plus symp toms BUN 17 10 - 20 mg/dL [facility] Creatinine 1.34 0.80 - 1.50 mg/dL [facility] Sodium 144 135 - 145 mmol/L [facility] Potassium Not Perf 3.5 - 5.0 mmol/L [facility] Comment: Duplicate order Please [...] Calcium 7.1 (L) 8.5 - 10.5 mg/dL [facility] Comment: result [id number] Estimated GFR 53 (L) >=60 [facility] Comment: The reported eGFR should be multiplied b y 1.2 for patients. The MDRD is not an appropriate measure o f renal function for patients with body mass extremes or in patients with acute kidney failure. http://[employer]VI/DHnkdep http://[employer]VI/DHMCnkf Specimen Anatomical Collection Method Collection Time Receive d Time (Source) Location / / Volume Laterality Blood specimen Venous Draw / 07/09/2017 2:30 AM 2016 2:42 (specimen) Unknown EST AM EST Resulting Agency Comment Spec In Lab Yuan Webber MD CHEMISTRY ORDERABLES Performing Organization Address City/State/[place] [address] (ABNORMAL) Potassium (07/09/2017 2:30 AM EST) P athologist Signature Potassium 5.1 (H) 3.5 - 5.0 [facility] mmol/L [facility] Comment: Please [...] Organization Address City/State/[place] [address] (ABNORMAL) Hemogram (07/09/2017 2:30 AM EST) Analysis Performed At Patho logist Time Signature WBC 12.5 (H) 4.0 - 9.5 [facility] x10(3)/[facility] LABORATORY RBC 3.38 (L) 4.58 - [facility] 5.54 [facility] x10(6)/[facility] LABORATORY Hemoglobin 10.1 (L) 13.7 - [facility] 16.5 gm/dL [facility] Hematocrit 30.3 (L) 40.5 - [facility] 48.5 % [facility] MCV 89.6 82.9 - [facility] 93.1 [facility] LABORATORY MCH 29.9 27.5 - [place] 32.1 pg [facility] MCHC 33.3 32.0 - [facility] 35.7 gm/dL [facility] Platelets 127 (L) 145 - 357 [facility] x10(3)/[facility] LABORATORY RDWSD 49.3 (H) 36.0 - [place] 45.0 [facility] LABORATORY RDWCV 15.2 (H) 11.4 - [facility] 13.8 % [facility] MPV 9.9 7.6 - 12.9 [facility] LABORATORY nRBC % Auto 0.0 % [facility] LABORATORY nRBC Abs Auto 0.000 0.000 - [place] 0.000 [facility] x10(3)/[facility] LABORATORY Specimen Anatomical Collection Method Collection Time Receive d Time (Source) Location / / Volume Laterality Blood specimen 07/09/2017 2:30 AM 017 2:41 (specimen) EST AM EST Resulting Agency Comment Spec In Lab Yuan Webber MD HEMATOLOGY ORDERABLES Performing Organization Address City/[facility]/ZIP Code Phon e Number [address] POCT Glucose (07/09/2017 2:10 AM EST) P athologist Signature POC Glucose 169 65 - 199 [place] mg/dL [facility] Comment: Supplemental ranges: <140 mg/dL before meals <180 mg/dL all other times of the day Specimen Anatomical Collection Method Collection Time Receive d Time (Source) Location / / Volume Laterality Blood specimen 07/09/2017 2:10 AM 017 2:10 (specimen) EST AM EST Yuan Webber MD POINT OF CARE TEST ORDERABLE S Performing Organization Address City/[facility]/[place] [address] POCT Glucose (07/09/2017 1:01 AM EST) P athologist Signature POC Glucose 173 65 - 199 [place] mg/dL [facility] Comment: Supplemental ranges: <140 mg/dL before meals <180 mg/dL all other times of the day Specimen Anatomical Collection Method Collection Time Receive d Time (Source) Location / / Volume Laterality Blood specimen 07/09/2017 1:01 AM 017 1:01 (specimen) EST AM EST Yuan Webber MD POINT OF CARE TEST ORDERABLE S Performing Organization Address City/[facility]/ZIP Code Phon e Number [address] Blood culture (07/09/2017 12:40 AM EST) [facility] Method Time Signature Blood Culture No growth [place] at 5 days. [facility] Specimen Anatomical Collection Method Collection Time Receive d Time (Source) Location / / Volume Laterality Blood specimen STRUCTURE OF RIGHT 07/09/2017 12:40 3:58 (specimen) UPPER LIMB / AM EST AM EST Unknown Resulting Agency Comment Spec In Lab Yuan Webber MD MICROBIOLOGY - BLOOD ORDERAB LES Performing Organization Address City/State/[place] [address] Blood culture (07/09/2017 12:30 AM EST) [facility] [employer] Method Time Signature Blood Culture No growth [place] DAVIS at 5 days. [facility] Specimen Anatomical Collection Method Collection Time Receive d Time (Source) Location / / Volume Laterality Blood specimen STRUCTURE OF LEFT 07/09/2017 12:30 1211/2016 3:59 (specimen) UPPER LIMB / AM EST AM EST Unknown Resulting Agency Comment Spec In Lab Yuan Webber MD MICROBIOLOGY - BLOOD ORDERAB LES Performing Organization Address City/[facility]/[place] [address] (ABNORMAL) Urinalysis Microscopic Exam (07/09/2017 12:05 AM EST) Analysis Performed At Patho logist Time Signature RBC UA 32 (H) 0 - 3 /HPF [facility] WBC UA 5 (H) 0 - 3 /HPF [facility] Squam Epith UA <1 <=4 /HPF [facility] Hyaline Cast 17 (H) 0 - 2 /LPF [facility] Gran Cast UA 1 (H) <=0 /LPF [facility]ORY Uric Ac Bianca Rare (A) None /HPF [facility] Specimen (Source) Anatomical Collection Method Collection Time Re ceived Time Location / / Volume Laterality Urine specimen 07/09/2017 12:05 07/09/ 7 obtained via AM EST 12:39 AM EST indwelling urinary catheter (specimen) Resulting Agency Comment Spec In Lab Yuan Webber MD URINE ORDERABLES Performing Organization Address City/State/[place] [address] (ABNORMAL) Urinalysis with reflex Culture (07/09/2017 12:05 AM EST) [facility] [employer] Method Time Signature Glucose UA Negative Negative [place] mg/dL [facility] Protein UA 30 (A) Negative [facility] Bilirubin UA Negative Negative [facility] mg/dL [facility] Comment: Clinical correlation required for positi ve Urine Bilirubin results as false positive may occur with some drugs and d rug related products. If a false positive is suspected a serum total bili yeager should be considered if clinically indicated. Urobilinogen UA Normal Normal mg/dL [facility] LABORATORY pH UA 5.0 5.0 - 8.0 [facility] Blood UA Moderate (A) Negative mg/dL [facility] Ketones UA Negative Negative mg/dL [facility]ORY Nitrite UA Negative Negative [facility] LABORATORY Leukocytes UA Negative Negative [facility] LABORATORY Appearance UA Hazy (A) Clear [facility] Spec [place] UA 1.025 1.002 - 1.030 [facility] LABORATORY Color UA Yellow Yellow [facility] Culture Reflexed No [facility] Specimen (Source) Anatomical Collection Method Collection Time Re ceived Time Location / / Volume Laterality Urine specimen 07/09/2017 12:05 7 obtained via AM EST 12:39 AM EST indwelling urinary catheter (specimen) Resulting Agency Comment Spec In Lab Yuan Webber MD URINE ORDERABLES Performing Organization Address City/[facility]/[place] [address] POCT Glucose (07/08/2017 11:01 PM EST) P athologist Signature POC Glucose 191 65 - [address] [facility] mg/dL [facility] Comment: Supplemental ranges: <140 mg/dL before meals <180 mg/dL all other times of the day Specimen Anatomical Collection Method Collection Time Receive d Time (Source) Location / / Volume Laterality Blood specimen 07/08/2017 11:01 7 (specimen) PM EST 11:01 PM EST Yuan Webber MD POINT OF CARE TEST ORDERABLE S Performing Organization Address City/State/[place] [address] POCT Glucose (07/08/2017 10:04 PM EST) athologist Signature POC Glucose 198 65 - 199 [facility] mg/dL [facility] Comment: Supplemental [...] Address City/State/ZIP Code Phon e Number [address] Prepare Albumin 5% in [...] Address City/State/ZIP Code Phon e Number [address] POCT Glucose (07/08/2017 8:28 PM EST) athologist Signature POC Glucose 195 65 - 199 [place] mg/dL [facility] Comment: Supplemental ranges: <140 mg/dL before meals <180 mg/dL all other times of the day Specimen Anatomical Collection Method Collection Time Receive d Time (Source) Location / / Volume Laterality Blood specimen 07/08/2017 8:28 PM 017 8:28 (specimen) EST PM EST Yuan Webber MD POINT OF CARE TEST ORDERABLE S Performing Organization Address City/State/[place] [address] (ABNORMAL) POCT Glucose (07/08/2017 7:13 PM EST) P athologist Signature POC Glucose 220 (H) 65 - 199 [facility] mg/dL [facility] Comment: Supplemental [...] Address City/State/ZIP Code Phon e Number [address] POCT Glucose (07/08/2017 5:04 PM EST) athologist Signature POC Glucose 147 65 - [address] [facility] mg/dL [facility] Comment: Supplemental ranges: <140 mg/dL before meals <180 mg/dL all other times of the day Specimen Anatomical Collection Method Collection Time Receive d Time (Source) Location / / Volume Laterality Blood specimen 07/08/2017 5:04 PM 017 5:04 (specimen) EST PM EST Yuan Webber MD POINT OF CARE TEST ORDERABLE S Performing Organization Address City/State/[place] [address] (ABNORMAL) BLOOD GAS 2 ARTERIAL (07/08/2017 4:13 PM EST) Analysis Performed At Patho logist Time Signature pH Art 7.38 7.35 - [facility] 7.45 [facility] pCO2 Art 36 35 - 45 [facility] LABORATORY pO2 Art 91 85 - 104 [facility] LABORATORY HCO3 Art 20.9 20.[address] - [facility] 26.0 [facility] mmol/L [facility] BE Art -4.2 (L) -3.0 - 3.0 [facility] mmol/L [facility] Hgb Blood Gas 11.7 (L) 13.7 - [facility] 16.5 gm/dL [facility] O2HB Art 95.1 94.0 - [facility] 97.0 % [facility] COHB Art 0.6 % GRACE [...] Blood 110 (H) 98 - 107 mmol/L [facility] Gluc Whole Bld 155 65 - 199 mg/dL [facility] Comment: Diabetes: >=200 mg/dL plus symp toms. Lactate WB 1.4 0.5 - 2.2 mmol/L [facility] FIO2 Art 40 % [facility] PF Ratio Art 228 [facility]OR[facility]ORY Specimen Anatomical Collection Method Collection Time Receive d Time (Source) Location / / Volume Laterality Blood specimen 07/08/2017 4:13 PM 017 4:13 (specimen) EST PM EST Yuan Webber MD CHEMISTRY ORDERABLES Performing Organization Address City/State/[place] [address] POCT Glucose (07/08/2017 4:01 PM EST) P athologist Signature POC Glucose 148 65 - [address] [facility] mg/dL [facility] Comment: Supplemental [...] Address City/State/ZIP Code Phon e Number [address] POCT Glucose (07/08/2017 3:21 PM EST) athologist Signature POC Glucose 118 65 - 199 [place] mg/dL [facility] Comment: Supplemental ranges: <140 mg/dL before meals <180 mg/dL all other times of the day Specimen Anatomical Collection Method Collection Time Receive d Time (Source) Location / / Volume Laterality Blood specimen 07/08/2017 3:21 PM 017 3:21 (specimen) EST PM EST Yuan Webber MD POINT OF CARE TEST ORDERABLE S Performing Organization Address City/State/[place] [address] POCT Glucose (07/08/2017 2:01 PM EST) athologist Signature POC Glucose 129 65 - 199 [place] mg/dL [facility] Comment: Supplemental ranges: <140 mg/dL before meals <180 mg/dL all other times of the day Specimen Anatomical Collection Method Collection Time Receive d Time (Source) Location / / Volume Laterality Blood specimen 07/08/2017 2:01 PM 017 2:01 (specimen) EST PM EST Yuan Webber MD POINT OF CARE TEST ORDERABLE S Performing Organization Address City/State/[place] [address] POCT Glucose (07/08/2017 11:53 AM EST) athologist Signature POC Glucose 156 65 - 199 [place] mg/dL [facility] Comment: Supplemental [...] Address City/State/ZIP Code Phon e Number [address] POCT Glucose (07/08/2017 11:04 AM EST) athologist Signature POC Glucose 181 65 - 199 [facility] mg/dL [facility] Comment: Supplemental ranges: <140 mg/dL before meals <180 mg/dL all other times of the day Specimen Anatomical Collection Method Collection Time Receive d Time (Source) Location / / Volume Laterality Blood specimen 07/08/2017 11:04 7 (specimen) AM EST 11:04 AM EST Yuan Webber MD POINT OF CARE TEST ORDERABLE S Performing Organization Address City/[facility]/[place] [address] (ABNORMAL) POCT Glucose (07/08/2017 9:24 AM EST) athologist Signature POC Glucose 203 (H) 65 - 199 [facility] Comment: [...] Organization Address City/State/[place] [address] APTT (07/08/2017 8:40 AM [...] Webber MD HEMATOLOGY ORDERABLES Performing Organization Address City/[facility]/[place] [address] (ABNORMAL) Prothrombin Time (07/08/2017 8:40 AM EST) P athologist Signature PT 15.6 (H) 11.8 - 14.0 [place] [...] Webber MD HEMATOLOGY ORDERABLES Performing Organization Address City/[facility]/[place] [address] (ABNORMAL) POCT Glucose (07/08/2017 7:38 AM EST) P athologist Signature POC Glucose 232 (H) 65 - [address] [facility] mg/dL [facility] Comment: Supplemental ranges: <140 mg/dL before meals <180 mg/dL all other times of the day Specimen Anatomical Collection Method Collection Time Receive d Time (Source) Location / / Volume Laterality Blood specimen 07/08/2017 7:38 AM 017 7:38 (specimen) EST AM EST Yuan Webber MD POINT OF CARE TEST ORDERABLE S Performing Organization Address City/[facility]/[place] [address] (ABNORMAL) POCT Glucose (07/08/2017 7:07 AM EST) athologist Signature POC Glucose 234 (H) 65 - 199 [facility] mg/dL [facility] Comment: Supplemental ranges: <140 mg/dL before meals <180 mg/dL all other times of the day Specimen Anatomical Collection Method Collection Time Receive d Time (Source) Location / / Volume Laterality Blood specimen 07/08/2017 7:07 AM 017 7:07 (specimen) EST AM EST Yuan Webber MD POINT OF CARE TEST ORDERABLE S Performing Organization Address City/State/[place] [address] (ABNORMAL) POCT Glucose (07/08/2017 6:04 AM EST) athologist Signature POC Glucose 225 (H) 65 - 199 [facility] mg/dL [facility] Comment: Supplemental ranges: <140 mg/dL before meals <180 mg/dL all other times of the day Specimen Anatomical Collection Method Collection Time Receive d Time (Source) Location / / Volume Laterality Blood specimen 07/08/2017 6:04 AM 017 6:04 (specimen) EST AM EST Yuan Webber MD POINT OF CARE TEST ORDERABLE S Performing Organization Address City/State/[place] [address] (ABNORMAL) POCT Glucose (07/08/2017 5:31 AM EST) athologist Signature POC Glucose 216 (H) 65 - 199 [facility] mg/dL [facility] Comment: [...] Organization Address City/State/[place] [address] (ABNORMAL) POCT Glucose (07/08/2017 4:52 AM EST) P athologist Signature POC Glucose 257 (H) 65 - [address] [facility] mg/dL [facility] Comment: Supplemental ranges: <140 mg/dL before meals <180 mg/dL all other times of the day Specimen Anatomical Collection Method Collection Time Receive d Time (Source) Location / / Volume Laterality Blood specimen 07/08/2017 4:52 AM 017 4:52 (specimen) EST AM EST Daphne Shahid MD POINT OF CARE TEST ORDERABLE S Performing Organization Address City/State/[place] [address] (ABNORMAL) BLOOD GAS 2 ARTERIAL (07/08/2017 4:04 AM EST) Analysis Performed At Patho logist Time Signature pH Art 7.30 (L) 7.35 - [facility] 7.45 [facility] pCO2 Art 41 35 - 45 [facility] LABORATORY pO2 Art 83 (L) 85 - 104 [facility] LABORATORY HCO3 Art 19.6 (L) 20.0 - [facility] 26.0 [facility] mmol/[facility] LABORATORY BE Art -6.8 (L) -3.0 - 3.0 [facility] mmol/L [facility] Hgb Blood Gas 12.2 (L) 13.7 - [facility] 16.5 gm/dL [facility] O2HB Art 93.5 (L) 94.0 - [facility] 97.0 % [facility] COHB Art 0.4 % GRACE [...] Whole Blood 107 98 - 107 mmol/L [facility] Gluc Whole Bld 274 (H) 65 - 199 mg/dL [facility] Comment: Diabetes: >=200 mg/dL plus symp toms. Lactate WB 4.4 (Critical) 0.5 - 2.2 mmol/L [facility] Comment: Noted by electronic musical instrument repairer. FIO2 Art 40 % [facility] PF Ratio Art 208 [facility] LABOR[facility]ORY Specimen Anatomical Collection Method Collection Time Receive d Time (Source) Location / / Volume Laterality Blood specimen 07/08/2017 4:04 AM 017 4:04 (specimen) EST AM EST Daphne Shahid MD CHEMISTRY ORDERABLES Performing Organization Address City/[facility]/ZIP Code Phon e Number [address] Scan, Peripheral Blood (07/08/2017 [...] Organization Address City/State/[place] [address] (ABNORMAL) Differential, Automated (07/08/2017 4:00 AM EST) Patholo gist Method Time Signature Neutrophils % 85.4 % [facility] LABORATORY Neutr Abs (ANC) 16.07 (H) 1.70 - [facility] 6.10 [facility] x10(3)/[facility] L LABORATORY Lymphocytes % 3.5 % [facility] LABORATORY Lymphocytes Abs 0.6 (L) 0.9 - 3.2 [facility] x10(3)/[facility] LABORATORY Monocytes % 10.4 % [facility] LABORATORY Monocyte Abs 2.0 (H) 0.3 - 0.9 [facility] x10(3)/[facility] LABORATORY Eosinophils % 0.0 % [facility] LABORATORY Eosinophils Abs 0.0 0.0 - 0.4 [facility] x10(3)/[facility] LABORATORY Basophils % 0.1 % [facility] LABORATORY Basophils Abs 0.0 0.0 - 0.1 [facility] x10(3)/[facility] LABORATORY Immature Gran % 0.60 [...] Organization Address City/State/[place] [address] (ABNORMAL) Hemogram (07/08/2017 4:00 AM EST) Analysis Performed At Patho logist Time Signature WBC 18.8 (H) 4.0 - 9.5 [facility] x10(3)/[facility] LABORATORY RBC 4.00 (L) 4.58 - [facility] 5.54 [facility] x10(6)/[facility] LABORATORY Hemoglobin 11.9 (L) 13.7 - [facility] 16.5 gm/dL [facility] Hematocrit 35.9 (L) 40.5 - [facility] 48.5 % [facility] MCV 89.8 82.9 - [facility] 93.1 [facility] LABORATORY MCH 29.8 27.5 - [facility] OL[facility]CK 32.1 pg [facility] MCHC 33.1 32.0 - [place] 35.7 gm/dL [facility] Platelets 232 145 - 357 [facility] x10(3)/[facility] LABORATORY RDWSD 47.6 (H) 36.0 - [place] 45.0 [facility] LABORATORY RDWCV 14.5 (H) 11.4 - [place] [place] 13.8 % [facility] LABORATORY MPV 9.5 7.6 - 12.9 [facility] LABORATORY nRBC % Auto 0.0 % [facility] LABORATORY nRBC Abs Auto 0.000 0.000 - [place] 0.000 [facility] x10(3)/[facility] LABORATORY Specimen Anatomical Collection Method Collection Time Receive d Time (Source) Location / / Volume Laterality Blood specimen 07/08/2017 4:00 AM 017 4:09 (specimen) EST AM EST Resulting Agency Comment Spec In Lab Yuan Webber MD HEMATOLOGY ORDERABLES Performing Organization Address City/State/ZIP Code Phon e Number [place] [id number] (ABNORMAL) Electrolytes panel (07/08/2017 4:00 AM EST) P athologist Signature Sodium 139 135 - [address] [facility] mmol/L [facility] Potassium 4.7 3.5 - 5.0 [facility] mmol/L [facility] Comment: result [...] 21 (L) 22 - 31 mmol/L [facility] Anion Gap 14 5 - 15 mmol/L [facility] Specimen Anatomical Collection Method Collection Time Receive d Time (Source) Location / / Volume Laterality Blood specimen 07/08/2017 4:00 AM 017 4:10 (specimen) EST AM EST Resulting Agency Comment Spec In Lab Yuan Webber MD CHEMISTRY ORDERABLES Performing Organization Address City/State/[place] [address] (ABNORMAL) Cardiac Enzymes (LEB/CGP) (07/08/2017 4:00 AM EST) P athologist Signature Troponin-T 1.88 (H) 0.[address] - [facility] 0.00 ng/mL [facility] Comment: The 99th percentile for Troponin T is le ss than 0.01 ng/mL, any detectable cTnT concentration using this assay should be considered elevated. According to the third universal definit ion of myocardial infarction the following criteria with a clinical prese ntation consistent with acute myocardial ischemia meets the diagnosis for a myocardial infarction (IN). Detection of a rise and/or fall of [...] additional sample may be indicated. Reference: Third Second [place] Definition of Myocardial Infarction. Journal of the [place] College [employer] 2012;60:1581-98 CK, Total 413 [...] Address City/State/ZIP Code Phon e Number [address] (ABNORMAL) Glucose, fasting (07/08/2017 4:00 AM EST) P athologist Signature Glucose 287 (H) 65 - 99 [facility] Fasting mg/dL [facility] Comment: [...] of Diabetes Mellitus, Position Statement from the [place] [employer] Association. ??Diabete s Care, Volume 33, Supplement 1, Jul 2009 Specimen Anatomical Collection Method Collection Time Receive d Time (Source) Location / / Volume Laterality Blood specimen 07/08/2017 4:00 AM 017 4:09 (specimen) EST AM EST Resulting Agency Comment Spec In Lab Yuan Webber MD CHEMISTRY ORDERABLES Performing Organization Address City/[facility]/[place] [address] (ABNORMAL) Creatinine (07/08/2017 4:00 AM EST) Analysis Performed At Patho logist Time Signature Creatinine 1.55 (H) 0.80 - [facility] 1.50 mg/dL [facility] Estimated GFR 44 (L) >=60 [facility] Comment: The reported eGFR should be multiplied b y 1.2 for patients. The MDRD is not an appropriate measure o f renal function for patients with body mass extremes or in patients with acute kidney failure. http://SETVI/DHnkdep http://[employer]Contentful/DHMCnkf Specimen Anatomical Collection Method Collection Time Receive d Time (Source) Location / / Volume Laterality Blood specimen 07/08/2017 4:00 AM 017 4:09 (specimen) EST AM EST Resulting Agency Comment Spec In Lab Yuan Webber MD CHEMISTRY ORDERABLES Performing Organization Address City/[facility]/ZIP Code Phon e Number [address] BUN (07/08/2017 4:00 AM EST) P athologist Signature BUN 16 10 - 20 [facility] mg/dL [facility] Specimen Anatomical Collection Method Collection Time Receive d Time (Source) Location / / Volume Laterality Blood specimen 07/08/2017 4:00 AM 017 4:09 (specimen) EST AM EST Resulting Agency Comment Spec In Lab Yuan Webber MD CHEMISTRY ORDERABLES Performing Organization Address City/[facility]/[place] [address] (ABNORMAL) POCT Glucose (07/08/2017 3:00 AM EST) P athologist Signature POC Glucose 273 (H) 65 - 199 [facility] mg/dL [facility] Comment: [...] Organization Address City/[facility]/ZIP Code Phon e Number [address] (ABNORMAL) POCT Glucose (07/08/2017 1:57 AM EST) P athologist Signature POC Glucose 288 (H) 65 - 199 [facility] mg/dL [facility] Comment: [...] Organization Address City/[facility]/[place] [address] (ABNORMAL) POCT Glucose (07/08/2017 1:01 AM EST) athologist Signature POC Glucose 315 (H) 65 - 199 [facility] mg/dL [facility] Comment: Supplemental ranges: <140 mg/dL before meals <180 mg/dL all other times of the day Specimen Anatomical Collection Method Collection Time Receive d Time (Source) Location / / Volume Laterality Blood specimen 07/08/2017 1:01 AM 017 1:01 (specimen) EST AM EST Daphne Shahid MD POINT OF CARE TEST ORDERABLE S Performing Organization Address City/[facility]/[place] [address] (ABNORMAL) BLOOD GAS 2 ARTERIAL (07/08/2017 12:09 AM EST) athologist Signature pH Art 7.26 7.35 - [facility] (Critical) 7.45 [facility] Comment: Noted by electronic musical instrument repairer. pCO2 Art 41 35 - 45 mmHg [facility] LABORATORY pO2 Art 96 85 - 104 mmHg [facility] LABORATORY HCO3 Art 17.7 (L) 20.0 - 26.0 mmol/L [facility] LABORATORY BE Art -9.4 (L) -3.0 - 3.0 mmol/L [facility]ORY Hgb Blood Gas 12.4 (L) 13.7 - 16.5 gm/dL [facility] LABORATORY O2HB Art 94.7 94.0 - 97.0 % [facility]ORY COHB Art 0.2 % ST [...] Blood 109 (H) 98 - 107 mmol/L [facility] Gluc Whole Bld 315 (H) 65 - 199 mg/dL [facility] Comment: Diabetes: >=200 mg/dL plus symp toms. Lactate WB 7.6 (Critical) 0.5 - 2.2 mmol/L [facility] Comment: Noted by electronic musical instrument repairer. FIO2 Art 40 % [facility] PF Ratio Art 240 [facility] Specimen Anatomical Collection Method Collection Time Receive d Time (Source) Location / / Volume Laterality Blood specimen Arterial Draw / 07/08/2017 12:09 2016 5:31 (specimen) Unknown AM EST AM EST Resulting Agency Comment Spec In Lab Samy Maldonado MD CHEMISTRY ORDERABLES Performing Organization Address City/State/[place] [address] (ABNORMAL) POCT Glucose (07/07/2017 10:56 PM EST) P athologist Signature POC Glucose 292 (H) 65 - [address] [facility] mg/dL [facility] Comment: Supplemental ranges: <140 mg/dL before meals <180 mg/dL all other times of the day Specimen Anatomical Collection Method Collection Time Receive d Time (Source) Location / / Volume Laterality Blood specimen 07/07/2017 10:56 7 (specimen) PM EST 10:56 PM EST Daphne Shahid MD POINT OF CARE TEST ORDERABLE S Performing Organization Address City/State/[place] [address] (ABNORMAL) BLOOD GAS 2 ARTERIAL (07/07/2017 10:04 PM EST) athologist Signature pH Art 7.22 7.[address] - [facility] (Critical) 7.45 [facility] Comment: Noted by electronic musical instrument repairer. pCO2 Art 42 35 - 45 mmHg [facility]ORY pO2 Art 94 85 - 104 mmHg [facility] HCO3 Art 16.9 (L) 20.0 - 26.0 mmol/L [facility]ORATORY BE Art -10.7 (L) -3.0 - 3.0 mmol/L [facility] Hgb Blood Gas 13.0 (L) 13.7 - 16.5 gm/dL [facility] O2HB Art 93.8 (L) 94.0 - 97.0 % [facility] COHB Art 0.7 % [facility] Comment: Nonsmokers: 0.5-1.5% COHB Smokers: Variable, but usually less than 10% Toxic: 20-30% COHB Lethal: Greater than 60% COHB METHB Art 0.7 <=1.5 % [facility] Na Whole Blood 140 135 - 145 mmol/L [facility] K Whole Blood 3.3 (L) 3.5 - 5.0 mmol/L [facility] Comment: Please note: Patients with WBC >100,000 may have falsely elevated Potassium levels. Contact the Clinical Chemistry L aboratory if there are any questions. ICa Whole Blood 1.07 (L) 1.15 - 1.33 mmol/L [facility] Comment: Note: ??Total bilirubin higher than 20 m g/dL may lead to falsely low ionized calcium. CL Whole Blood 107 98 - 107 mmol/L [facility] Gluc Whole Bld 304 (H) 65 - 199 mg/dL [facility] Comment: Diabetes: >=200 mg/dL plus symp toms. Lactate WB 8.2 (Critical) 0.5 - 2.2 mmol/L [facility] Comment: Noted by electronic musical instrument repairer. FIO2 Art 40 % [facility] PF Ratio Art 235 [facility] Specimen Anatomical Collection Method Collection Time Receive d Time (Source) Location / / Volume Laterality Blood specimen 07/07/2017 10:04 7 (specimen) PM EST 10:04 PM EST Daphne Shahid MD CHEMISTRY ORDERABLES Performing Organization Address [facility]/ZIP [facility] Phon e Number [address] (ABNORMAL) Hemoglobin (07/07/2017 10:00 PM EST) P athologist Signature Hemoglobin 12.8 (L) 13.7 - [facility] 16.5 gm/dL [facility] Specimen Anatomical Collection Method Collection Time Receive d Time (Source) Location / / Volume Laterality Blood specimen 07/07/2017 10:00 7 (specimen) PM EST 10:13 PM EST Resulting Agency Comment Spec In Lab Yuan Webber MD HEMATOLOGY ORDERABLES Performing Organization Address City/[facility]/[place] [address] (ABNORMAL) Potassium (07/07/2017 10:00 PM EST) P athologist Signature Potassium 3.4 (L) 3.5 - 5.0 [facility] mmol/L [facility] Comment: Please [...] Organization Address City/State/[place] [address] (ABNORMAL) POCT Glucose (07/07/2017 8:49 PM EST) P athologist Signature POC Glucose 241 (H) 65 - [address] [facility] mg/dL [facility] Comment: Supplemental ranges: <140 mg/dL before meals <180 mg/dL all other times of the day Specimen Anatomical Collection Method Collection Time Receive d Time (Source) Location / / Volume Laterality Blood specimen 07/07/2017 8:49 PM 017 8:49 (specimen) EST PM EST Daphne Shahid MD POINT OF CARE TEST ORDERABLE S Performing Organization Address City/[facility]/[place] [address] Prepare Albumin 5% in [...] BROWN BLOOD BANK ORDERABLES Performing Organization Address City/[facility]/[place] [address] EKG 12 Lead (07/07/2017 7:17 PM EST) Component Value Ref Range Test Analysis Performed Pathologis t Method Time At Signature Ventricular rate 75 BPM MUSE SYSTEM Atrial Rate 75 BPM MUSE SYSTEM P-R Interval 168 ms MUSE SYSTEM QRS Duration 104 ms MUSE SYSTEM Q-T Interval 462 ms MUSE SYSTEM QTC Calculated 515 ms MUSE SYSTEM (Bezet) Calculated P [place] 52 degrees MUSE SYSTEM Calculated R [place] -40 degrees MUSE SYSTEM Calculated T [place] 39 degrees MUSE SYSTEM INTERPRETATION Normal sinus [...] athologist Signature pH Art 7.21 7.[address] - [facility] (Critical) 7.45 [facility] Comment: Noted by electronic musical instrument repairer. pCO2 Art 50 (H) 35 - 45 mmHg [facility] pO2 Art 238 (H) 85 - 104 mmHg [facility] [facility] HCO3 Art 19.8 (L) 20.0 - 26.0 mmol/L [facility] BE Art -8.1 (L) -3.0 - 3.0 mmol/L [facility] Hgb Blood Gas 12.8 (L) 13.7 - 16.5 gm/dL [facility] O2HB Art 97.5 (H) 94.0 - 97.0 % [facility] COHB Art 0.5 % ST [...] [facility] Comment: Noted by electronic musical instrument repairer. Please note: Patients with WBC >100,000 may have falsely elevated Potassium levels. Contact the Clinical Chemistry L aboratory if there are any questions. ICa Whole Blood 1.07 (L) 1.15 - 1.33 mmol/L [facility] Comment: Note: ??Total bilirubin higher than 20 m g/dL may lead to falsely low ionized calcium. CL Whole Blood 107 98 - 107 mmol/L [facility] Gluc Whole Bld 270 (H) 65 - 199 mg/dL [facility] Comment: Diabetes: >=200 mg/dL plus symp toms. Lactate WB 4.9 (Critical) 0.5 - 2.2 mmol/L [facility] Comment: Noted by electronic musical instrument repairer. FIO2 Art 100 % [facility] PF Ratio Art 238 [facility] Specimen Anatomical Collection Method Collection Time Receive d Time (Source) Location / / Volume Laterality Blood specimen 07/07/2017 6:57 PM 017 6:57 (specimen) EST PM EST Daphne Shahid MD CHEMISTRY ORDERABLES Performing Organization Address City/State/[place] [address] (ABNORMAL) BLOOD GAS 2 ARTERIAL (07/07/2017 5:31 PM EST) athologist Signature pH Art 7.29 7.35 - [facility] (Critical) 7.45 [facility] Comment: Noted by electronic musical instrument repairer. pCO2 Art 48 (H) 35 - 45 mmHg [facility] pO2 Art 137 (H) 85 - 104 mmHg [facility] HCO3 Art 22.4 20.0 - 26.0 mmol/L [facility] BE Art -4.3 (L) -3.0 - 3.0 mmol/L [facility] Hgb Blood Gas 10.0 (L) 13.7 - 16.5 gm/dL [facility] O2HB Art 97.3 (H) 94.0 - 97.0 % [facility] COHB Art 0.3 % [facility] Comment: Nonsmokers: 0.5-1.5% COHB Smokers: Variable, but usually less than 10% Toxic: 20-30% COHB Lethal: Greater than 60% COHB METHB Art 0.3 <=1.5 % [facility] Na Whole Blood 132 (L) 135 - 145 mmol/L [facility] K Whole Blood 4.0 3.5 - 5.0 mmol/L [facility] Comment: Please note: Patients with WBC >100,000 may have falsely elevated Potassium levels. Contact the Clinical Chemistry L aboratory if there are any questions. ICa Whole Blood 1.14 (L) 1.15 - 1.33 mmol/L [facility] Comment: Note: ??Total bilirubin higher than 20 m g/dL may lead to falsely low ionized calcium. CL Whole Blood 105 98 - 107 mmol/L [facility] Gluc Whole Bld 293 (H) 65 - 199 mg/dL [facility] Comment: Diabetes: >=200 mg/dL plus symp toms. Lactate WB 3.1 (H) 0.5 - 2.2 mmol/L [facility] Specimen Anatomical Collection Method Collection Time Receive d Time (Source) Location / / Volume Laterality Blood specimen 07/07/2017 5:31 PM 017 5:31 (specimen) EST PM EST Daphne Shahid MD CHEMISTRY ORDERABLES Performing Organization Address City/[facility]/ZIP Code Phon e Number [address] Fibrinogen (07/07/2017 5:30 PM EST) P athologist Signature Fibrinogen 224 180 - 510 [facility] mg/dL [facility] Comment: Called [...] Perez MD HEMATOLOGY ORDERABLES Performing Organization Address City/[facility]/ZIP [facility] Phon e Number [address] APTT (07/07/2017 5:30 PM [...] Perez MD HEMATOLOGY ORDERABLES Performing Organization Address City/[facility]/[place] [address] (ABNORMAL) Prothrombin Time (07/07/2017 5:30 PM EST) P athologist Signature PT 19.0 (H) 11.8 - 14.0 [place] [...] Perez MD HEMATOLOGY ORDERABLES Performing Organization Address City/[facility]/[place] [address] (ABNORMAL) Hemogram (07/07/2017 5:30 PM EST) P athologist Signature WBC 19.6 (H) 4.0 - 9.5 [facility] x10(3)/[facility] LABORATORY RBC 3.08 (L) 4.58 - [facility] 5.54 [facility] x10(6)/[facility] LABORATORY Hemoglobin 9.2 (L) 13.7 - [facility] 16.5 gm/dL [facility] Hematocrit 28.0 (L) 40.[address] - [facility] 48.5 % [facility] Comment: [...] CENTER LABORATORY Platelets 155 145 - 357 x10(3)/[facility] LABORATORY RDWSD 46.5 (H) 36.0 - 45.0 [facility] LABORATORY RDWCV 14.1 (H) 11.4 - 13.8 % [facility] MPV 9.5 7.6 - 12.9 [facility] LABORATORY nRBC % Auto 0.0 % [facility] nRBC Abs Auto 0.000 0.000 - 0.000 x10(3)/[facility] LABORATORY Specimen Anatomical Collection Method Collection Time Receive d Time (Source) Location / / Volume Laterality Blood specimen 07/07/2017 5:30 PM 017 5:34 (specimen) EST PM EST Resulting Agency Comment Spec In Lab Yifan Perez MD HEMATOLOGY ORDERABLES Performing Organization Address City/State/[place] [address] Prepare Platelets, Apheresis (07/07/2017 5:00 PM EST) P athologist Signature Dispensed? Yes [facility] Specimen Anatomical Collection Method Collection Time Receive d Time (Source) Location / / Volume Laterality Blood specimen 07/07/2017 5:00 PM 017 4:58 (specimen) EST PM EST Daphne Shahid MD BLOOD BANK ORDERABLES Performing Organization Address City/State/[place] [address] Platelet count (07/07/2017 4:55 PM EST) P athologist Signature Platelets 177 145 - 357 [place] [facility] x10(3)/[facility] LABORATORY Plat Immature 1.5 0.0 - 7.4 [place] % % [facility] Comment: Limitation of the Immature Platelet Frac tion (IPF)-May be less reliable when the platelet count is less than 32x020/u L due to statistical imprecision. The IPF [...] in a decreased state of production. References: [employer] The Clinical Value of the Immature Platelet Fraction (IPF) in Cell Recovery Document Number 10-1143 12/2010 [employer] The Role of the Imm ature [...] Organization Address City/State/[place] [address] [facility] LAB[address] Drive (ABNORMAL) Hemoglobin and Hematocrit, blood (07/07/2017 4:55 PM EST) P athologist Signature Hemoglobin 9.1 (L) 13.7 - 16.5 [place] gm/dL [facility] Comment: This [...] Organization Address City/State/[place] [address] (ABNORMAL) BLOOD GAS 2 ARTERIAL (07/07/2017 4:38 PM EST) Analysis Performed At Patho logist Time Signature pH Art 7.37 7.35 - [facility] 7.45 [facility] pCO2 Art 44 35 - 45 [facility] mmHg [facility] pO2 Art 322 (H) 85 - 104 [facility] LABORATORY HCO3 Art 24.9 20.[address] [facility] 26.0 [facility] mmol/L [facility] BE Art -0.4 -3.0 - 3.0 [facility] mmol/L [facility] Hgb Blood Gas 10.1 (L) 13.7 - [facility] 16.5 gm/dL [facility] O2HB Art 98.7 (H) 94.0 - [facility] 97.0 % [facility] COHB Art 0.1 % [facility] Comment: Nonsmokers: 0.5-1.5% COHB Smokers: Variable, but usually less than 10% Toxic: 20-30% COHB Lethal: Greater than 60% COHB METHB Art 0.3 <=1.5 % [facility] Na Whole Blood 130 (L) 135 - 145 mmol/L [facility] K Whole Blood 5.7 (H) 3.5 - 5.0 mmol/L [facility] Comment: Please note: Patients with WBC >100,000 may have falsely elevated Potassium levels. Contact the Clinical Chemistry L aboratory if there are any questions. ICa Whole Blood 0.89 (Critical) 1.15 - 1.33 mmol/L [facility] Comment: Noted by electronic musical instrument repairer. Note: ??Total bilirubin higher than 20 m g/dL may lead to falsely low ionized calcium. CL Whole Blood 101 98 - 107 mmol/L [facility] Gluc Whole Bld 295 (H) 65 - 199 mg/dL [facility] Comment: Diabetes: >=200 mg/dL plus symp toms. Lactate WB 1.7 0.5 - 2.2 mmol/L [facility] Specimen Anatomical Collection Method Collection Time Receive d Time (Source) Location / / Volume Laterality Blood specimen 07/07/2017 4:38 PM 017 4:38 (specimen) EST PM EST Daphne Shahid MD CHEMISTRY ORDERABLES Performing Organization Address City/State/[place] [address] (ABNORMAL) BLOOD GAS 2 VENOUS (07/07/2017 4:06 PM EST) Analysis Performed At Patho logist Time Signature pH Cody 7.31 (L) 7.32 - [facility] 7.42 [facility] pCO2 Cody 47 41 - 51 [facility] LABORATORY pO2 Cody 53 (H) 25 - 40 [facility] LABORATORY HCO3 Cody 22.7 mmol/L [facility] BE Cody -3.7 mmol/L [facility] Hgb Blood Gas 10.2 (L) 13.7 - [facility] 16.5 gm/dL [facility] O2HB Cody 81.0 % GRACE [...] Blood 5.3 (H) 3.5 - 5.0 mmol/L [facility] Comment: Please note: Patients with WBC >100,000 may have falsely elevated Potassium levels. Contact the Clinical Chemistry L aboratory if there are any questions. ICa Whole Blood 0.90 (Critical) 1.15 - 1.33 mmol/L [facility] Comment: Noted by electronic musical instrument repairer. Note: ??Total bilirubin higher than 20 m g/dL may lead to falsely low ionized calcium. CL Whole Blood 100 98 - 107 mmol/L [facility] Gluc Whole Bld 231 (H) 65 - 199 mg/dL [facility] Comment: Diabetes: >=200 mg/dL plus symp toms Lactate WB 1.1 0.5 - 2.2 mmol/L [facility] BGas Source Venous [facility] Specimen Anatomical Collection Method Collection Time Receive d Time (Source) Location / / Volume Laterality Blood specimen 07/07/2017 4:06 PM 017 4:06 (specimen) EST PM EST Daphne Shahid MD CHEMISTRY ORDERABLES Performing Organization Address City/State/[place] [address] (ABNORMAL) BLOOD GAS 2 ARTERIAL (07/07/2017 4:05 PM EST) Analysis Performed At Patho logist Time Signature pH Art 7.36 7.35 - [facility] 7.45 [facility] pCO2 Art 40 35 - 45 [facility] mmHg [facility] pO2 Art 282 (H) 85 - 104 [facility] LABORATORY HCO3 Art 22.1 20.0 - [facility] 26.0 [facility] mmol/L [facility] BE Art -3.4 (L) -3.0 - 3.0 [facility] mmol/L [facility] Hgb Blood Gas 10.2 (L) 13.7 - [facility] 16.5 gm/dL [facility] O2HB Art 98.4 (H) 94.0 - [facility] 97.0 % [facility] COHB Art 0.3 % [facility] Comment: Nonsmokers: 0.5-1.5% COHB Smokers: Variable, but usually less than 10% Toxic: 20-30% COHB Lethal: Greater than 60% COHB METHB Art 0.3 <=1.5 % [facility] Na Whole Blood 131 (L) 135 - 145 mmol/L [facility] K Whole Blood 5.4 (H) 3.5 - 5.0 mmol/L [facility] Comment: Please note: Patients with WBC >100,000 may have falsely elevated Potassium levels. Contact the Clinical Chemistry L aboratory if there are any questions. ICa Whole Blood 0.86 (Critical) 1.15 - 1.33 mmol/L [facility] Comment: Noted by electronic musical instrument repairer. Note: ??Total bilirubin higher than 20 m g/dL may lead to falsely low ionized calcium. CL Whole Blood 101 98 - 107 mmol/L [facility] Gluc Whole Bld 260 (H) 65 - 199 mg/dL [facility] Comment: Diabetes: >=200 mg/dL plus symp toms. Lactate WB 1.4 0.5 - 2.2 mmol/L [facility] Specimen Anatomical Collection Method Collection Time Receive d Time (Source) Location / / Volume Laterality Blood specimen 07/07/2017 4:05 PM 017 4:05 (specimen) EST PM EST Daphne Shahid MD CHEMISTRY ORDERABLES Performing Organization Address City/State/[place] [address] (ABNORMAL) BLOOD GAS 2 ARTERIAL (07/07/2017 2:29 PM EST) Analysis Performed At Patho logist Time Signature pH Art 7.43 7.35 - [facility] 7.45 [facility] pCO2 Art 36 35 - 45 [facility] LABORATORY pO2 Art 221 (H) 85 - 104 [facility] LABORATORY HCO3 Art 23.2 20.0 - [facility] 26.0 [facility] mmol/L [facility] BE Art -1.2 -3.0 - 3.0 [facility] mmol/L [facility] Hgb Blood Gas 13.9 13.7 - [facility] 16.5 gm/dL [facility] O2HB Art 97.8 (H) 94.0 - [facility] 97.0 % [facility] COHB Art 1.1 % [facility]ACE [...] Whole Bld 184 65 - 199 mg/dL [facility] Comment: Diabetes: >=200 mg/dL plus symp toms. Lactate WB 1.5 0.5 - 2.2 mmol/L [facility] Specimen Anatomical Collection Method Collection Time Receive d Time (Source) Location / / Volume Laterality Blood specimen 07/07/2017 2:29 PM 017 2:29 (specimen) EST PM EST Daphne Shahid MD CHEMISTRY ORDERABLES Performing Organization Address City/State/[place] [address] Prepare Coag Factors (Non-Hemophilia) (07/07/2017 1:25 PM EST) P athologist Signature Dispensed? Yes [facility] Specimen Anatomical Collection Method Collection Time Receive d Time (Source) Location / / Volume Laterality Blood specimen 07/07/2017 1:25 PM 017 1:21 (specimen) EST PM EST Daphne Shahid MD BLOOD BANK ORDERABLES Performing Organization Address City/State/ZIP Code Phon e Number [address] Prepare RBC (07/07/2017 1:10 PM EST) P athologist Signature Dispensed? Yes [facility] Specimen Anatomical Collection Method Collection Time Receive d Time (Source) Location / / Volume Laterality Blood specimen 07/07/2017 1:10 PM 017 1:05 (specimen) EST PM EST Daphne Shahid MD BLOOD BANK ORDERABLES Performing Organization Address City/State/ZIP Code Phon e Number [address] POCT Glucose (07/07/2017 11:56 AM EST) P athologist Signature POC Glucose 188 65 - 199 [facility]dL [facility] Comment: [...] Address City/State/ZIP Code Phon e Number [address] POCT Glucose (07/07/2017 11:05 AM EST) P athologist Signature POC Glucose 168 65 - 199 [facility] mg/dL [facility] Comment: [...] Address City/State/ZIP Code Phon e Number [address] POCT Glucose (07/07/2017 10:02 AM EST) athologist Signature POC Glucose 191 65 - 199 [place] mg/dL [facility] Comment: Supplemental [...] Address City/State/ZIP Code Phon e Number [address] POCT Glucose (07/07/2017 7:53 AM EST) athologist Signature POC Glucose 178 65 - 199 [facility] mg/dL [facility] Comment: [...] Organization Address City/State/[place] [address] POCT Glucose (07/07/2017 7:03 AM EST) athologist Signature POC Glucose 188 65 - 199 [facility] RYAN mg/dL [facility] Comment: Supplemental ranges: <140 mg/dL before meals <180 mg/dL all other times of the day Specimen Anatomical Collection Method Collection Time Receive d Time (Source) Location / / Volume Laterality Blood specimen 07/07/2017 7:03 AM 017 7:03 (specimen) EST AM EST Daphne Shahid MD POINT OF CARE TEST ORDERABLE S Performing Organization Address City/State/[place] [address] (ABNORMAL) POCT Glucose (07/07/2017 6:17 AM EST) athologist Signature POC Glucose 207 (H) 65 - [address] [facility] mg/dL [facility] Comment: Supplemental [...] City/State/ZIP Code Phon e Number [place] [id number] HOSP[address] LAB[address]ORY Drive Differential, Automated (07/07/2017 5:15 AM EST) athologist [facility] Neutrophils % 69.7 % [facility] Neutr Abs (ANC) 5.32 1.70 - [facility] 6.10 [facility] x10(3)/[facility] LABORATORY Lymphocytes % 16.3 % [facility] Lymphocytes Abs 1.2 0.9 - 3.2 [facility] x10(3)/[facility] LABORATORY Monocytes % 10.5 % [facility] Monocyte Abs 0.8 0.3 - 0.9 [facility] x10(3)/[facility] LABORATORY Eosinophils % 2.5 % [facility] Eosinophils Abs 0.2 0.0 - 0.4 [facility] x10(3)/[facility] LABORATORY Basophils % 0.7 % [facility] Basophils Abs 0.0 0.0 - 0.1 [facility] x10(3)/[facility] LABORATORY Immature Gran % 0.30 [...] Melisa Gran Abs 0.02 0.00 - 0.04 x10(3)/[facility] LABORATORY Specimen Anatomical Collection Method Collection Time Receive d Time (Source) Location / / Volume Laterality Blood specimen 07/07/2017 5:15 AM 017 5:34 (specimen) EST AM EST Resulting Agency Comment Spec In Lab Daphne Shahid MD HEMATOLOGY ORDERABLES Performing Organization Address City/State/[place] [address] (ABNORMAL) Hemogram (07/07/2017 5:15 AM EST) Analysis Performed At Patho logist Time Signature WBC 7.6 4.0 - 9.5 [facility] x10(3)/[facility] LABORATORY RBC 4.82 4.58 - [facility] 5.54 [facility] x10(6)/[facility] LABORATORY Hemoglobin 14.4 13.7 [facility] 16.5 gm/dL [facility] Hematocrit 42.1 40.5 - [facility] 48.5 % [facility] MCV 87.3 82.9 - [facility] 93.1 [facility] LABORATORY MCH 29.9 27.5 - [facility] RYAN 32.1 pg [facility] MCHC 34.2 32.0 - [facility] 35.7 gm/dL [facility] Platelets 188 145 - 357 [facility] x10(3)/[facility] LABORATORY RDWSD 45.1 (H) 36.0 - [facility] 45.0 [facility] LABORATORY RDWCV 14.3 (H) 11.4 - [facility] RYAN 13.8 % [facility] MPV 9.4 7.6 - 12.9 [facility] LABORATORY nRBC % Auto 0.0 % [facility] nRBC Abs Auto 0.000 0.000 - [facility] RYAN 0.000 [facility] x10(3)/[facility] LABORATORY Specimen Anatomical Collection Method Collection Time Receive d Time (Source) Location / / Volume Laterality Blood specimen 07/07/2017 5:15 AM 017 5:34 (specimen) EST AM EST Resulting Agency Comment Spec In Lab Daphne Shahid MD HEMATOLOGY ORDERABLES Performing Organization Address City/State/[place] [address] (ABNORMAL) APTT (07/07/2017 5:15 [...] Shahid MD HEMATOLOGY ORDERABLES Performing Organization Address City/[facility]/[place] [address] Magnesium (07/07/2017 5:15 AM EST) athologist Signature Magnesium 0.94 0.69 - 1.07 [facility] mmol/L [facility] Specimen Anatomical Collection Method Collection Time Receive d Time (Source) Location / / Volume Laterality Blood specimen 07/07/2017 5:15 AM 017 5:34 (specimen) EST AM EST Resulting Agency Comment Spec In Lab Daphne Shahid MD CHEMISTRY ORDERABLES Performing Organization Address City/[facility]/[place] [address] (ABNORMAL) Basic Metabolic Panel (non-fasting) (07/07/2017 5:15 AM EST) P athologist Signature Glucose Lvl 203 (H) 65 - 199 [facility] mg/dL [facility] Comment: Diabetes: >=200 mg/dL plus symp toms BUN 15 10 - 20 mg/dL [facility] Creatinine 1.09 0.80 - 1.50 mg/dL [facility]ORY Sodium 142 135 - 145 mmol/L [facility] Potassium 4.4 3.5 - 5.0 mmol/L [facility] [...] or in patients with acute kidney failure. [email or web address] Specimen Anatomical Collection Method Collection Time Receive d Time (Source) Location / / Volume Laterality Blood specimen 07/07/2017 5:15 AM 017 5:34 (specimen) EST AM EST Resulting Agency Comment Spec In Lab Daphne Shahid MD CHEMISTRY ORDERABLES Performing Organization Address City/State/[place] [address] (ABNORMAL) Cardiac Enzymes (LEB/CGP) (07/07/2017 5:15 AM EST) P athologist Signature Troponin-T 2.07 (H) 0.00 - [facility] 0.00 ng/mL [facility] Comment: The 99th percentile for Troponin T is le ss than 0.01 ng/mL, any detectable cTnT concentration using this assay should be considered elevated. According to the third universal definit ion of myocardial infarction the following criteria with a clinical prese ntation consistent with acute myocardial ischemia meets the diagnosis for a myocardial infarction (IN). Detection of a rise and/or fall of [...] additional sample may be indicated. Reference: Third Second [place] Definition of Myocardial Infarction. Journal of the [employer] 2012;60:1581-98 CK, Total 88 0 - 200 unit/L [facility] Specimen Anatomical Collection Method Collection Time Receive d Time (Source) Location / / Volume Laterality Blood specimen 07/07/2017 5:15 AM 017 5:34 (specimen) EST AM EST Resulting Agency Comment Spec In Lab Daphne Shahid MD CHEMISTRY ORDERABLES Performing Organization Address City/[facility]/ZIP [facility] Phon e Number [address] POCT Glucose (07/07/2017 5:01 AM EST) athologist Signature POC Glucose 182 65 - 199 [facility] mg/dL [facility] Comment: Supplemental ranges: <140 mg/dL before meals <180 mg/dL all other times of the day Specimen Anatomical Collection Method Collection Time Receive d Time (Source) Location / / Volume Laterality Blood specimen 07/07/2017 5:01 AM 017 5:01 (specimen) EST AM EST Daphne Shahid MD POINT OF CARE TEST ORDERABLE S Performing Organization Address City/[facility] Phon e Number [address] POCT Glucose (07/07/2017 4:08 AM EST) athologist Signature POC Glucose 199 65 - 199 [facility] mg/dL [facility] Comment: Supplemental [...] Address City/State/ZIP Code Phon e Number [address] POCT Glucose (07/07/2017 3:03 AM EST) athologist Signature POC Glucose 188 65 - 199 [place] mg/dL [facility] Comment: Supplemental ranges: <140 mg/dL before meals <180 mg/dL all other times of the day Specimen Anatomical Collection Method Collection Time Receive d Time (Source) Location / / Volume Laterality Blood specimen 07/07/2017 3:03 AM 017 3:03 (specimen) EST AM EST Daphne Shahid MD POINT OF CARE TEST ORDERABLE S Performing Organization Address City/State/[place] [address] (ABNORMAL) POCT Glucose (07/07/2017 2:08 AM EST) athologist Signature POC Glucose 200 (H) 65 - 199 [place] mg/dL [facility] Comment: Supplemental [...] Address City/State/ZIP Code Phon e Number [address] (ABNORMAL) POCT Glucose (07/07/2017 1:31 AM EST) P athologist Signature POC Glucose 209 (H) 65 - 199 [place] mg/dL [facility] Comment: Supplemental ranges: <140 mg/dL before meals <180 mg/dL all other times of the day Specimen Anatomical Collection Method Collection Time Receive d Time (Source) Location / / Volume Laterality Blood specimen 07/07/2017 1:31 AM 017 1:31 (specimen) EST AM EST Daphne Shahid MD POINT OF CARE TEST ORDERABLE S Performing Organization Address City/State/[place] [address] XR Chest PA or [...] Signature POC Glucose 161 65 - [address] [facility] mg/dL [facility] Comment: Supplemental ranges: <140 mg/dL before meals <180 mg/dL all other times of the day Specimen Anatomical Collection Method Collection Time Receive d Time (Source) Location / / Volume Laterality Blood specimen 07/07/2017 12:07 7 (specimen) AM EST 12:07 AM EST Daphne Shahid MD POINT OF CARE TEST ORDERABLE S Performing Organization Address City/State/[place] [address] (ABNORMAL) APTT (07/07/2017 12:00 [...] Shahid MD HEMATOLOGY ORDERABLES Performing Organization Address City/[facility]/[place] [address] POCT Glucose (07/06/2017 9:55 PM EST) athologist Signature POC Glucose 109 65 - 199 [facility] Comment: [...] Organization Address City/[facility]/[place] [address] POCT Glucose (07/06/2017 9:04 PM EST) athologist Signature POC Glucose 120 65 - 199 [facility] Comment: [...] Organization Address City/[facility]/[place] [address] POCT Glucose (07/06/2017 7:45 PM EST) athologist Signature POC Glucose 158 65 - [address] [facility] mg/dL [facility] Comment: Supplemental ranges: <140 mg/dL before meals <180 mg/dL all other times of the day Specimen Anatomical Collection Method Collection Time Receive d Time (Source) Location / / Volume Laterality Blood specimen 07/06/2017 7:45 PM 017 7:45 (specimen) EST PM EST Daphne Shahid MD POINT OF CARE TEST ORDERABLE S Performing Organization Address City/[facility]/[place] [address] Potassium (07/06/2017 7:40 PM EST) athologist Signature Potassium 3.9 3.5 - 5.0 [facility] mmol/L [facility] Comment: Please [...] Shahid MD CHEMISTRY ORDERABLES Performing Organization Address City/[facility]/[place] [address] (ABNORMAL) Cardiac Enzymes (LEB/CGP) (07/06/2017 7:40 PM EST) athologist Signature Troponin-T 2.27 (H) 0.00 - [place] 0.00 ng/mL [facility] Comment: The 99th percentile for Troponin T is le ss than 0.01 ng/mL, any detectable cTnT concentration using this assay should be considered elevated. According to the third universal definit ion of myocardial infarction the following criteria with a clinical prese ntation consistent with acute myocardial ischemia meets the diagnosis for a myocardial infarction ([place]). Detection of a rise and/or fall of [...] additional sample may be indicated. Reference: Third [place] Definition of Myocardial Infarction. Journal of the [place] [employer] 2012;60:1581-98 CK, Total 93 0 - 200 unit/L [facility] Specimen Anatomical Collection Method Collection Time Receive d Time (Source) Location / / Volume Laterality Blood specimen 07/06/2017 7:40 PM 017 7:52 (specimen) EST PM EST Resulting Agency Comment Spec In Lab Daphne Shahid MD CHEMISTRY ORDERABLES Performing Organization Address City/State/[place] [address] (ABNORMAL) POCT Glucose (07/06/2017 7:13 PM EST) athologist Signature POC Glucose 200 (H) 65 - [address] [facility] mg/dL [facility] Comment: Supplemental ranges: <140 mg/dL before meals <180 mg/dL all other times of the day Specimen Anatomical Collection Method Collection Time Receive d Time (Source) Location / / Volume Laterality Blood specimen 07/06/2017 7:13 PM 017 7:13 (specimen) EST PM EST Daphne Shahid MD POINT OF CARE TEST ORDERABLE S Performing Organization Address City/[facility]/[place] [address] (ABNORMAL) APTT (07/06/2017 6:15 [...] Shahid MD HEMATOLOGY ORDERABLES Performing Organization Address City/[facility]/[place] [address] (ABNORMAL) POCT Glucose (07/06/2017 6:03 PM EST) athologist Signature POC Glucose 236 (H) 65 - 199 [facility] Comment: [...] Organization Address City/[facility]/[place] [address] (ABNORMAL) POCT Glucose (07/06/2017 5:01 PM EST) athologist Signature POC Glucose 235 (H) 65 - 199 [facility] mg/dL [facility] Comment: Supplemental ranges: <140 mg/dL before meals <180 mg/dL all other times of the day Specimen Anatomical Collection Method Collection Time Receive d Time (Source) Location / / Volume Laterality Blood specimen 07/06/2017 5:01 PM 017 5:01 (specimen) EST PM EST Daphne Shahid MD POINT OF CARE TEST ORDERABLE S Performing Organization Address City/State/[place] [address] (ABNORMAL) POCT Glucose (07/06/2017 4:06 PM EST) athologist Signature POC Glucose 202 (H) 65 - 199 [place] mg/dL [facility] Comment: Supplemental ranges: <140 mg/dL before meals <180 mg/dL all other times of the day Specimen Anatomical Collection Method Collection Time Receive d Time (Source) Location / / Volume Laterality Blood specimen 07/06/2017 4:06 PM 017 4:06 (specimen) EST PM EST Daphne Shahid MD POINT OF CARE TEST ORDERABLE S Performing Organization Address City/[facility]/[place] [address] POCT Glucose (07/06/2017 2:59 PM EST) athologist Signature POC Glucose 178 65 - 199 [place] mg/dL [facility] Comment: Supplemental ranges: <140 mg/dL before meals <180 mg/dL all other times of the day Specimen Anatomical Collection Method Collection Time Receive d Time (Source) Location / / Volume Laterality Blood specimen 07/06/2017 2:59 PM 017 2:59 (specimen) EST PM EST Daphne Shahid MD POINT OF CARE TEST ORDERABLE S Performing Organization Address City/State/[place] [address] (ABNORMAL) Cardiac Enzymes (LEB/CGP) (07/06/2017 2:10 PM EST) athologist Signature Troponin-T 2.34 (H) 0.00 - [place] 0.00 ng/mL [facility] Comment: The 99th percentile for Troponin T is le ss than 0.01 ng/mL, any detectable cTnT concentration using this assay should be considered elevated. According to the third universal definit ion of myocardial infarction the following criteria with a clinical prese ntation consistent with acute myocardial ischemia meets the diagnosis for a myocardial infarction ([place]). Detection of a rise and/or fall of [...] additional sample may be indicated. Reference: Third [place] Definition of Myocardial Infarction. Journal of the [employer] 2012;60:1581-98 CK, Total 101 0 - 200 unit/L [facility] Specimen Anatomical Collection Method Collection Time Receive d Time (Source) Location / / Volume Laterality Blood specimen 07/06/2017 2:10 PM 017 2:26 (specimen) EST PM EST Resulting Agency Comment Spec In Lab Daphne Shahid MD CHEMISTRY ORDERABLES Performing Organization Address City/State/[place] [address] POCT Glucose (07/06/2017 2:08 PM EST) P athologist Signature POC Glucose 192 65 - [address] [facility] mg/dL [facility] Comment: Supplemental [...] Address City/State/ZIP Code Phon e Number [address] POCT Glucose (07/06/2017 1:04 PM EST) P athologist Signature POC Glucose 162 65 - 199 [facility] Comment: [...] Organization Address City/[facility]/ZIP Code Phon e Number [address] POCT Glucose (07/06/2017 12:05 PM EST) P athologist Signature POC Glucose 196 65 - 199 [facility]/dL [facility] Comment: [...] Organization Address City/State/[place] [address] EKG 12 Lead (07/06/2017 12:00 PM EST) Component Value Ref Range Test Analysis Performed Pathologis t Method Time At Signature Ventricular rate 91 BPM MUSE SYSTEM Atrial Rate 91 BPM MUSE SYSTEM P-R Interval 140 ms MUSE SYSTEM QRS Duration 94 ms MUSE SYSTEM Q-T Interval 394 ms MUSE SYSTEM QTC Calculated 484 ms MUSE SYSTEM (Bezet) Calculated P [place] 36 degrees MUSE SYSTEM Calculated R [place] -19 degrees MUSE SYSTEM Calculated T [place] 104 degrees MUSE SYSTEM INTERPRETATION Normal sinus rhythm MUSE SYSTEM 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) ST & T wave abnormality, consider lateral ischemia Abnormal ECG When compared with ECG of 05-JUL-2017 20:39, No significant change was found Confirmed by MD Luci, Taurus Braun ([id number]) on 07/06/2017 5:07:33 PM Specimen Anatomical Collection [...] Organization Address City/[facility]/[place] [address] Antibody screen (07/06/2017 12:00 PM EST) [facility] Method Time Signature Ab Screen Negative [facility] LABORATORY Expires at 07/09/2017 [facility] 235 on: [facility] Specimen Anatomical Collection Method Collection Time Receive d Time (Source) Location / / Volume Laterality Blood specimen 07/06/2017 12:00 7 (specimen) PM EST 12:24 PM EST Resulting Agency Comment Spec In Lab Daphne Shahid MD BLOOD BANK ORDERABLES Performing Organization Address City/[facility]/[place] [address] ABO/Rh Typing (07/06/2017 12:00 [...] Organization Address City/State/[place] [address] Prothrombin Time (07/06/2017 11:24 AM EST) athologist Signature PT 13.3 11.8 - 14.0 [facility] LABORATORY INR 1.0 0.9 - [...] Shahid MD HEMATOLOGY ORDERABLES Performing Organization Address City/[facility]/[place] [address] (ABNORMAL) APTT (07/06/2017 11:24 [...] Address City/State/ZIP Code Phon e Number [address] POCT Glucose (07/06/2017 11:02 AM EST) athologist Signature POC Glucose 187 65 - 199 [place] mg/dL [facility] Comment: Supplemental [...] Address City/State/ZIP Code Phon e Number [address] POCT Glucose (07/06/2017 10:18 AM EST) athologist Signature POC Glucose 193 65 - 199 [facility] Comment: [...] Address City/State/ZIP Code Phon e Number [address] POCT Glucose (07/06/2017 9:25 AM EST) athologist Signature POC Glucose 182 65 - 199 [place] mg/dL [facility] Comment: Supplemental ranges: <140 mg/dL before meals <180 mg/dL all other times of the day Specimen Anatomical Collection Method Collection Time Receive d Time (Source) Location / / Volume Laterality Blood specimen 07/06/2017 9:25 AM 017 9:25 (specimen) EST AM EST Daphne Shahid MD POINT OF CARE TEST ORDERABLE S Performing Organization Address City/State/[place] [address] (ABNORMAL) Cardiac Enzymes (LEB/CGP) (07/06/2017 8:10 AM EST) athologist Signature Troponin-T 2.26 (H) 0.00 - [facility] 0.00 ng/mL [facility] Comment: The 99th percentile for Troponin T is le ss than 0.01 ng/mL, any detectable cTnT concentration using this assay should be considered elevated. According to the third universal definit ion of myocardial infarction the following criteria with a clinical prese ntation consistent with acute myocardial ischemia meets the diagnosis for a myocardial infarction ([place]). Detection of a rise and/or fall of [...] additional sample may be indicated. Reference: Third Second [place] Definition of Myocardial Infarction. Journal of the [place] [employer]iology 2012;60:1581-98 CK, Total 124 0 - 200 unit/L [facility] Specimen Anatomical Collection Method Collection Time Receive d Time (Source) Location / / Volume Laterality Blood specimen 07/06/2017 8:10 AM 017 8:23 (specimen) EST AM EST Resulting Agency Comment Spec In Lab Daphne Shahid MD CHEMISTRY ORDERABLES Performing Organization Address City/State/[place] [address] Magnesium (07/06/2017 8:10 AM EST) athologist Signature Magnesium 0.84 0.69 - 1.07 [facility] mmol/L [facility] Specimen Anatomical Collection Method Collection Time Receive d Time (Source) Location / / Volume Laterality Blood specimen 07/06/2017 8:10 AM 017 8:21 (specimen) EST AM EST Resulting Agency Comment Spec In Lab Daphne Shahid MD CHEMISTRY ORDERABLES Performing Organization Address City/[facility]/[place] [address] (ABNORMAL) Basic Metabolic Panel (non-fasting) (07/06/2017 8:10 AM EST) P athologist Signature Glucose Lvl 199 65 - [address] [facility] mg/dL [facility] Comment: Diabetes: >=200 mg/dL plus symp toms BUN 16 10 - 20 mg/dL [facility] Creatinine 1.04 0.80 - 1.50 mg/dL [facility] [...] or in patients with acute kidney failure. [email or web address]/DHnkdep [email or web address] Specimen Anatomical Collection Method Collection Time Receive d Time (Source) Location / / Volume Laterality Blood specimen 07/06/2017 8:10 AM 017 8:21 (specimen) EST AM EST Resulting Agency Comment Spec In Lab Daphne Shahid MD CHEMISTRY ORDERABLES Performing Organization Address City/State/[place] [address] POCT Glucose (07/06/2017 7:34 AM EST) P athologist Signature POC Glucose 198 65 - 199 [facility] mg/dL [facility] Comment: Supplemental [...] Address City/State/ZIP Code Phon e Number [address] POCT Glucose (07/06/2017 7:03 AM EST) athologist Signature POC Glucose 181 65 - 199 [facility] mg/dL [facility] Comment: Supplemental ranges: <140 mg/dL before meals <180 mg/dL all other times of the day Specimen Anatomical Collection Method Collection Time Receive d Time (Source) Location / / Volume Laterality Blood specimen 07/06/2017 7:03 AM 017 7:03 (specimen) EST AM EST Daphne Shahid MD POINT OF CARE TEST ORDERABLE S Performing Organization Address City/State/[place] [address] XR Chest PA or [...] Glucose 172 65 - [address] [facility] mg/dL [facility] Comment: Supplemental ranges: <140 mg/dL before meals <180 mg/dL all other times of the day Specimen Anatomical Collection Method Collection Time Receive d Time (Source) Location / / Volume Laterality Blood specimen 07/06/2017 6:21 AM 017 6:21 (specimen) EST AM EST Daphne Shahid MD POINT OF CARE TEST ORDERABLE S Performing Organization Address City/State/[place] [address] POCT Glucose (07/06/2017 5:08 AM EST) athologist Signature POC Glucose 154 65 - [address] [facility] mg/dL [facility] Comment: Supplemental ranges: <140 mg/dL before meals <180 mg/dL all other times of the day Specimen Anatomical Collection Method Collection Time Receive d Time (Source) Location / / Volume Laterality Blood specimen 07/06/2017 5:08 AM 017 5:08 (specimen) EST AM EST Daphne Shahid MD POINT OF CARE TEST ORDERABLE S Performing Organization Address City/[facility]/ZIP Code Phon e Number [address] POCT Glucose (07/06/2017 4:05 AM EST) athologist Signature POC Glucose 142 65 - 199 [facility]/dL [facility] Comment: [...] Organization Address City/[facility]/ZIP Code Phon e Number [address] POCT Glucose (07/06/2017 3:00 AM EST) athologist Signature POC Glucose 116 65 - 199 [facility]/dL [facility] Comment: [...] Address City/State/ZIP Code Phon e Number [address] Potassium (07/06/2017 2:20 AM EST) athologist Signature Potassium 3.9 3.5 - 5.0 [facility] mmol/L [facility] Comment: Please [...] Organization Address City/State/[place] [address] Differential, Automated (07/06/2017 2:20 AM EST) athologist Signature Neutrophils % 72.9 % [facility] Neutr Abs (ANC) 5.53 1.70 - [facility] 6.10 [facility] x10(3)[facility] LABORATORY Lymphocytes % 16.4 % [facility] Lymphocytes Abs 1.2 0.9 - 3.2 [facility] x10(3)/[facility] LABORATORY Monocytes % 9.4 % [facility] Monocyte Abs 0.7 0.3 - 0.9 [facility] x10(3)[facility] LABORATORY Eosinophils % 0.5 % [facility] Eosinophils Abs 0.0 0.0 - [address].4 [facility] x10(3)[facility] LABORATORY Basophils % 0.4 % [facility] Basophils Abs 0.0 0.0 - [address] [facility] x10(3)/[facility] LABORATORY Immature Gran % 0.40 % [facility] Comment: Immature granulocytes(IG's)percentage an d absolute count will include metamyelocytes, myelocytes, and promyelo cytes. Blood smears from CBCs yielding IG's will be scanned manually for concor dance. If this scan disagrees with the automated IG or if promyelocytes are not ed, a manual differential will be performed. Melisa Gran Abs 0.03 0.00 - 0.04 x10(3)/[facility] LABORATORY Specimen Anatomical Collection Method Collection Time Receive d Time (Source) Location / / Volume Laterality Blood specimen 07/06/2017 2:20 AM 017 2:33 (specimen) EST AM EST Resulting Agency Comment Spec In Lab Daphne Shahid MD HEMATOLOGY ORDERABLES Performing Organization Address City/State/[place] [address] (ABNORMAL) Hemogram (07/06/2017 2:20 AM EST) Analysis Performed At Patho logist Time Signature WBC 7.6 4.0 - 9.5 [facility] x10(3)/[facility] LABORATORY RBC 4.52 (L) 4.58 - [facility] RYAN 5.54 [facility] x10(6)/[facility] LABORATORY Hemoglobin 13.4 (L) 13.7 - [facility] 16.5 gm/dL [facility] Hematocrit 39.7 (L) 40.5 - [facility] 48.5 % [facility] MCV 87.8 82.9 - [facility] RYAN 93.1 [facility] LABORATORY MCH 29.6 27.5 - [place] 32.1 pg [facility] MCHC 33.8 32.0 - [place] 35.7 gm/dL [facility] Platelets 189 145 - 357 [facility] x10(3)/[facility] LABORATORY RDWSD 45.6 (H) 36.0 - [facility] RYAN 45.0 [facility] LABORATORY RDWCV 14.3 (H) 11.4 - [facility] RYAN 13.8 % [facility] MPV 9.1 7.6 - 12.9 [facility] nRBC % Auto 0.0 % [facility] LABORATORY nRBC Abs Auto 0.000 0.000 - [place] [employer] 0.000 [facility] x10(3)/[facility] LABORATORY Specimen Anatomical Collection Method Collection Time Receive d Time (Source) Location / / Volume Laterality Blood specimen 07/06/2017 2:20 AM 017 2:33 (specimen) EST AM EST Resulting Agency Comment Spec In Lab Daphne Shahid MD HEMATOLOGY ORDERABLES Performing Organization Address City/State/[place] [address] (ABNORMAL) APTT (07/06/2017 2:20 [...] EST Resulting Agency Comment Spec In Lab Dpahne Shahid MD HEMATOLOGY ORDERABLES Performing Organization Address City/State/[place] [address] POCT Glucose (07/06/2017 2:20 AM EST) athologist [facility] POC Glucose 115 65 - [address] [facility] mg/dL [facility] Comment: Supplemental ranges: <140 mg/dL before meals <180 mg/dL all other times of the day Specimen Anatomical Collection Method Collection Time Receive d Time (Source) Location / / Volume Laterality Blood specimen 07/06/2017 2:20 AM 017 2:20 (specimen) EST AM EST Daphne Shahid MD POINT OF CARE TEST ORDERABLE S Performing Organization Address City/State/[place] [address] (ABNORMAL) Cardiac Enzymes (LEB/CGP) (07/06/2017 2:20 AM EST) athologist Signature Troponin-T 2.13 (H) 0.[address] - [facility] 0.00 ng/mL [facility] Comment: The 99th percentile for Troponin T is le ss than 0.01 ng/mL, any detectable cTnT concentration using this assay should be considered elevated. According to the third universal definit ion of myocardial infarction the following criteria with a clinical prese ntation consistent with acute myocardial ischemia meets the diagnosis for a myocardial infarction ([place]). Detection of a rise and/or fall of [...] additional sample may be indicated. Reference: Third Second [place] Definition of Myocardial Infarction. Journal of the [place] College of Cardiology 2012;60:1581-98 CK, Total 129 0 - 200 unit/L [facility] Specimen Anatomical Collection Method Collection Time Receive d Time (Source) Location / / Volume Laterality Blood specimen 07/06/2017 2:20 AM 017 2:33 (specimen) EST AM EST Resulting Agency Comment Spec In Lab Daphne Shahid MD CHEMISTRY ORDERABLES Performing Organization Address City/State/[place] [address] (ABNORMAL) Hemoglobin A1c (07/06/2017 [...] [id number] Est Avg Gluc See note mg/dL [facility] [...] into estimated average glucose values. ??Diabetes Care 2008:31(8):2724-2031. Specimen Anatomical Collection Method Collection Time Receive d Time (Source) Location / / Volume Laterality Blood specimen 07/06/2017 2:20 AM 017 2:34 (specimen) EST AM EST Resulting Agency Comment Spec In Lab Daphne Shahid MD CHEMISTRY ORDERABLES Performing Organization Address City/State/[place] [address] (ABNORMAL) Lipid Panel (07/06/2017 2:20 AM EST) [facility] Method Time Signature Chol, Total 150 <=239 [place] mg/dL [facility] Triglycerides 129 <=199 [place] mg/dL [facility] HDL 32 (L) >=40 [place] mg/dL [facility] LDL Cholesterol 92 <=190 [place] mg/dL [facility] Chol/HDL Ratio 4.7 ratio [place] [facility] Lipid See Note [place] Interpretation [facility] Comment: Lipid management should be guided by a p atient? s ASCVD risk, goals and preferences. ACC/AHA Guidelines recommend high intens ity statin if clinical ASCVD or LDL greater than or equal to 190 mg/dL. http://ChipVision [email or web address] [email or web address]-ATP-Sfatazhbh Adults aged 40-75 with LDL 70-189 mg/dL should have their 10 year ASCVD risk estimated with the ACC/AHA ASCVD risk es timator http://tools.acc.org/WZWZS-Ktqc-Hrlrvmkm r/ Statin should be discussed if risk [...] Shahid MD CHEMISTRY ORDERABLES Performing Organization Address City/[facility]/[place] [address] POCT Glucose (07/06/2017 1:09 AM EST) athologist Signature POC Glucose 121 65 - [address] [facility] mg/dL [facility] Comment: Supplemental [...] Address City/State/ZIP Code [place] [address] POCT Glucose (07/06/2017 12:06 AM EST) athologist Signature POC Glucose 147 65 - 199 [facility] mg/dL [facility] Comment: [...] Organization Address City/State/[place] [address] (ABNORMAL) POCT Glucose (07/05/2017 10:56 PM EST) athologist Signature POC Glucose 200 (H) 65 - 199 [facility] mg/dL [facility] Comment: [...] Organization Address City/State/[place] [address] (ABNORMAL) POCT Glucose (07/05/2017 10:05 PM EST) athologist Signature POC Glucose 225 (H) 65 - 199 [facility] mg/dL [facility] Comment: [...] Organization Address City/State/[place] [address] (ABNORMAL) POCT Glucose (07/05/2017 9:02 PM EST) P athologist Signature POC Glucose 301 (H) 65 - 199 [facility] YRAN mg/dL [facility] Comment: Supplemental [...] Address City/State/ZIP Code Phon e Number [address] XR Chest PA or [...] 474 ms MUSE SYSTEM (Bezet) Calculated P [place] 50 degrees MUSE SYSTEM Calculated R [place] -28 degrees MUSE SYSTEM Calculated T [place] 90 degrees MUSE SYSTEM INTERPRETATION Sinus tachycardia [...] (07/05/2017 8:20 PM EST) [facility] gist Method Time Signature Neutrophils % 88.4 % [facility] Neutr Abs (ANC) 9.08 (H) 1.70 - [facility] 6.10 [facility] x10(3)/[facility] L LABORATORY Lymphocytes % 7.0 % [facility] Lymphocytes Abs 0.7 (L) 0.9 - 3.2 [facility] x10(3)/[facility] LABORATORY Monocytes % 3.7 % [facility] Monocyte Abs 0.4 0.3 - 0.9 [facility] x10(3)/[facility] LABORATORY Eosinophils % 0.1 % [facility] Eosinophils Abs 0.0 0.0 - 0.4 [facility] x10(3)/[facility] LABORATORY Basophils % 0.2 % [facility] Basophils Abs 0.0 0.0 - 0.1 [facility] x10(3)/[facility] LABORATORY Immature Gran % 0.60 [...] Organization Address City/State/[place] [address] (ABNORMAL) Hemogram (07/05/2017 8:20 PM EST) Analysis Performed At Patho logist Time Signature WBC 10.3 (H) 4.0 - 9.5 [facility] x10(3)/[facility] LABORATORY RBC 4.64 4.58 - [facility] RYAN 5.54 [facility] x10(6)/[facility] LABORATORY Hemoglobin 14.1 13.7 - [facility] 16.5 gm/dL [facility] Hematocrit 40.8 40.5 - [place] RYAN 48.5 % [facility] MCV 87.9 82.9 - [facility] 93.1 [facility] LABORATORY MCH 30.4 27.5 - [facility] 32.1 pg [facility] MCHC 34.6 32.0 - [facility] 35.7 gm/dL [facility] Platelets 204 145 - 357 [facility] x10(3)/[facility] LABORATORY RDWSD 46.1 (H) 36.0 - [facility] RYAN 45.0 [facility] RDWCV 14.5 (H) 11.4 - [facility] 13.8 % [facility] MPV 9.7 7.6 - 12.9 [facility] LABORATORY nRBC % Auto 0.0 % [facility] nRBC Abs Auto 0.000 0.000 - [place] Z[facility]AN 0.000 [facility] x10(3)/[facility] LABORATORY Specimen Anatomical Collection Method Collection Time Receive d Time (Source) Location / / Volume Laterality Blood specimen 07/05/2017 8:20 PM 017 8:27 (specimen) EST PM EST Resulting Agency Comment Spec In Lab Daphne Shahid MD HEMATOLOGY ORDERABLES Performing Organization Address City/[facility]/ZIP Code Phon e Number [address] APTT (07/05/2017 8:20 PM [...] Shahid MD HEMATOLOGY ORDERABLES Performing Organization Address City/[facility]/ZIP [facility] [place] [address] (ABNORMAL) Cardiac Enzymes (LEB/CGP) (07/05/2017 8:20 PM EST) P athologist Signature Troponin-T 2.11 (H) 0.00 [facility] 0.[facility] ng/mL [facility] Comment: The 99th percentile for Troponin T is le ss than 0.01 ng/mL, any detectable cTnT concentration using this assay should be considered elevated. According to the third universal definit ion of myocardial infarction the following criteria with a clinical prese ntation consistent with acute myocardial ischemia meets the diagnosis for a myocardial infarction (IN). Detection of a rise and/or fall of [...] additional sample may be indicated. Reference: Third Second [place] Definition of Myocardial Infarction. Journal of the [place] College of Cardiology 2012;60:1581-98 CK, Total 149 0 - 200 unit/L [facility] Specimen Anatomical Collection Method Collection Time Receive d Time (Source) Location / / Volume Laterality Blood specimen 07/05/2017 8:20 PM 017 8:27 (specimen) EST PM EST Resulting Agency Comment Spec In Lab Daphne Shahid MD CHEMISTRY ORDERABLES Performing Organization Address City/[facility]/[place] [address] (ABNORMAL) Magnesium (07/05/2017 8:20 PM EST) athologist Signature Magnesium 0.68 (L) 0.69 - 1.07 [facility] mmol/L [facility] Specimen Anatomical Collection Method Collection Time Receive d Time (Source) Location / / Volume Laterality Blood specimen 07/05/2017 8:20 PM 017 8:27 (specimen) EST PM EST Resulting Agency Comment Spec In Lab Daphne Shahid MD CHEMISTRY ORDERABLES Performing Organization Address City/State/[place] [address] (ABNORMAL) Basic Metabolic Panel (non-fasting) (07/05/2017 8:20 PM EST) athologist Signature Glucose Lvl 321 (H) 65 - [address] [facility] mg/dL [facility] Comment: Diabetes: >=200 mg/dL plus symp toms BUN 20 10 - 20 mg/dL [facility] Creatinine 1.12 0.80 - 1.50 mg/dL [facility] Sodium 139 135 - 145 mmol/L [facility] Potassium 3.8 3.5 - 5.0 mmol/L [facility] [...] or in patients with acute kidney failure. [email or web address]/DHnkdep http://SETVI/DHMCnkf Specimen Anatomical Collection Method Collection Time Receive d Time (Source) Location / / Volume Laterality Blood specimen 07/05/2017 8:20 PM 017 8:27 (specimen) EST PM EST Resulting Agency Comment Spec In Lab Daphne Shahid MD CHEMISTRY ORDERABLES Performing Organization Address City/State/[place] [address] (ABNORMAL) POCT Glucose (07/05/2017 7:32 PM EST) athologist Signature POC Glucose 296 (H) 65 - [address] [facility] mg/dL [facility] Comment: Supplemental ranges: <140 mg/dL before meals <180 mg/dL all other times of the day Specimen Anatomical Collection Method Collection Time Receive d Time (Source) Location / / Volume Laterality Blood specimen 07/05/2017 7:32 PM 017 7:32 (specimen) EST PM EST Daphne Shahid MD POINT OF CARE TEST ORDERABLE S Performing Organization Address City/State/[place] [address] CARDIAC CATHETERIZATION (07/05/2017 6:47 PM EST) Specimen (Source) Anatomical Location Collection Method / Collectio n Time Received Time / Laterality Volume Narrative CARDIOMAC SYSTEM - 07/05/2017 7:27 PM ES T ?[facility] ? Cardiac Cathete rization/Intervention Report ? Patient Name: Natalya, Gregory ? Procedure Date: 07/05/2017 ? A #: [id number] ? Primary Physician: Clarisa, Jet T ? Case #: [id number] ? File Name: [id number] ? Catheterization Order Number: [id number] ? [facility] ? Final Report [place], [place] ? Patient Name: ? Gregory Natalya ?ID#: ?[id number] ? : ?1945 ? Procedure Date: ? [...] presented with: non -STEMI (w/i 7 days). [place] ?Cardiovascular Society angina c lass was IV. [...] site angio graphy and IABP insertion in label printer. ? Jet Mckenna, M.D. ? Electronically Signed by: Jet Sampson DeVrizack s, M.D. ? Report Finalized: 07/05/2017 ??19:23 ? Report Last Ammended: 10/26/2017 ??10:29 ? Procedure Note Jet Mckenna MD - 10/26/2017Formatt ing of this note might be different from the original. [facility] Cardiac Catheterization/Intervention Re port Patient Name: Gregory Hoang Procedure Date: 07/05/2017 A #: [id number] Primary Physician: Jet Mckenna Case #: [id number] File Name: [id number] Catheterization Order Number: [id number] [facility] [employer] [facility] Final Report [place], [place] Patient Name: Gregory Hoang ID#: [id number] : 1945 Procedure Date: July 05, [...] presented with: non-STEMI ( w/i 7 days). [place] [employer] angina class was IV. No [...] site angiograph y and IABP insertion in label printer. Jet Mckenna M.D. Electronically Signed by: Jet [...] Mccollum ? (Age): 1945(72y) Med Rec#: ? [id number] ?Sex: ?M ? Site Loc: ? [facility] ?Ht / Wt: ??173(cm)/86(kg) Pt. Loc: ?[facility] ? BSA: ?2 Study Date: ?? 07/05/2017 ?Pt. Type: Inpatient Tape: ? Referring: Daphne Shahid ([id number]) Referring: MANDA ALCANTAR Reading: Blade Preston ([id number]) Independent Video Producer: Dayami Paula BA, [facility] Diagnosis: *ICD-10-PCS Non-ST elevation (NSTEMI) m yocardial [...] E-wave Vmax ?0.8 ?m/sec ? MV deceleration [id number] ?msec ? MV A-wave Vmax ?0.8 ?m/sec [...] ? Mid-Inferior ?Akinetic ? Mid-Inferoseptal ?Hypokinetic ? [place]-Septal ? Akinetic ? [place]-Anterior ? Hypokinetic ? [place]-Lateral ?Hypokinetic ? [place]-Inferior ? Akinetic ? [place]-Tip ?Akinetic ? This report has been electronically sign ed by: _ Blade Preston MD ? 07/06/2017 08 :53:15 Images [facility] Procedure Note Blade Preston MD - 07/06/2017Formatt ing of this note might be different from the original. Procedure: Transthoracic Echocardiogram Patient: NATALYA MCBRIDE(Age): [birth year]72y) Med Rec#: [id number] Sex: M [place] Loc[place] [facility] Ht / Wt: 173(cm)/86(kg) Pt. Loc: [facility] BSA: 2 Study Date: 07/05/2017 Pt. Type: Inpatie nt Tape: Referring: Daphne Shahid ([id number]) Referring: MANDA ALCANTAR Reading: Blade Preston ([id number]) Independent Video Producer: Dayami Paula BA, [facility] Diagnosis: *ICD-10-PCS Non-ST elevation (NSTEMI) m yocardial [...] MV E-wave Vmax 0.8 m/sec MV deceleration [id number] msec MV A-wave Vmax 0.8 m/sec MV [...] Hypokinetic Mid-Posterolateral Hypokinetic Mid-Inferior Akinetic Mid-Inferoseptal Hypokinetic [place]-Septal Akinetic [place]-Anterior Hypokinetic [place]-Lateral Hypokinetic [place]-Inferior Akinetic [place]-Tip Akinetic This report has been electronically sign ed by: _ Blade Preston MD 07/06/2017 08:53:15 Images reviewed and interpretation verif ied [facility] Cardiac Ultrasound Laboratory Daphne Shahid MD ECHO ORDERABLES Performing Organization Address City/State/ZIP Code Phon e Number [facility] Differential, Automated (07/05/2017 4:55 PM EST) P athologist Signature Neutrophils % 77.0 % [facility] Neutr Abs (ANC) 5.26 1.70 - [facility] 6.10 [facility] x10(3)/[facility] LABORATORY Lymphocytes % 13.3 % [facility] Lymphocytes Abs 0.9 0.9 - 3.2 [facility] x10(3)/[facility] LABORATORY Monocytes % 8.2 % [facility] Monocyte Abs 0.6 0.3 - 0.9 [facility] x10(3)/[facility] LABORATORY Eosinophils % 0.7 % [facility] Eosinophils Abs 0.0 0.0 - 0.4 [facility] x10(3)/[facility] LABORATORY Basophils % 0.4 % [facility] Basophils Abs 0.0 0.0 - 0.1 [facility] x10(3)/[facility] LABORATORY Immature Gran % 0.40 [...] 0.04 x10(3)/[facility] LABORATORY Specimen Anatomical Collection Method Collection Time Receive d Time (Source) Location / / Volume Laterality Blood specimen 07/05/2017 4:55 PM 017 5:24 (specimen) EST PM EST Resulting Agency Comment Spec In Lab Daphne Shahid MD HEMATOLOGY ORDERABLES Performing Organization Address City/State/[place] [address] (ABNORMAL) Hemogram (07/05/2017 4:55 PM EST) Analysis Performed At Patho logist Time Signature WBC 6.8 4.0 - 9.5 [facility] x10(3)/[facility] LABORATORY RBC 4.67 4.58 - [facility] 5.54 [facility] x10(6)/[facility] LABORATORY Hemoglobin 14.0 13.7 [facility] 16.5 gm/dL [facility] Hematocrit 41.0 40.5 - [facility] 48.5 % [facility] MCV 87.8 82.9 - [facility] 93.1 [facility] LABORATORY MCH 30.0 27.5 - [facility] 32.1 pg [facility] MCHC 34.1 32.0 - [facility] 35.7 gm/dL [facility] Platelets 197 145 - 357 [facility] x10(3)/[facility] LABORATORY RDWSD 46.4 (H) 36.0 [facility] 45.0 [facility] LABORATORY RDWCV 14.5 (H) 11.4 - [facility] 13.8 % [facility] LAB[facility]ATORY MPV 9.7 7.6 - 12.9 [facility] LABORATORY nRBC % Auto 0.0 % [facility] nRBC Abs Auto 0.000 0.000 - [facility] 0.000 [facility] x10(3)/[facility] LABORATORY Specimen Anatomical Collection Method Collection Time Receive d Time (Source) Location / / Volume Laterality Blood specimen 07/05/2017 4:55 PM 017 5:24 (specimen) EST PM EST Resulting Agency Comment Spec In Lab Daphne Shahid MD HEMATOLOGY ORDERABLES Performing Organization Address City/[facility]/[place] [address] (ABNORMAL) Cardiac Enzymes (LEB/CGP) (07/05/2017 4:55 PM EST) athologist Signature Troponin-T 1.69 (H) 0.00 [facility] 0.00 ng/mL [facility] Comment: The 99th percentile for Troponin T is le ss than 0.01 ng/mL, any detectable cTnT concentration using this assay should be considered elevated. According to the third universal definit ion of myocardial infarction the following criteria with a clinical prese ntation consistent with acute myocardial ischemia meets the diagnosis for a myocardial infarction ([place]). Detection of a rise and/or fall of [...] additional sample may be indicated. Reference: Third Second [place] Definition of Myocardial Infarction. Journal of the [place] College [employer]iology 2012;60:1581-98 CK, Total 191 0 - 200 unit/L [facility] Specimen Anatomical Collection Method Collection Time Receive d Time (Source) Location / / Volume Laterality Blood specimen 07/05/2017 4:55 PM 017 5:56 (specimen) EST PM EST Resulting Agency Comment Spec In Lab Daphne Shahid MD CHEMISTRY ORDERABLES Performing Organization Address City/[facility]/[place] [address] (ABNORMAL) pro-Brain Natriuretic Peptide (07/05/2017 4:55 PM EST) athologist Signature ProBNP 1,598 (H) <=125 [facility] pg/mL [facility] Specimen Anatomical Collection Method Collection Time Receive d Time (Source) Location / / Volume Laterality Blood specimen 07/05/2017 4:55 PM 017 5:24 (specimen) EST PM EST Resulting Agency Comment Spec In Lab Daphne Shahid MD CHEMISTRY ORDERABLES Performing Organization Address City/[facility]/ZIP Code Phon e Number [address] Magnesium (07/05/2017 4:55 PM EST) athologist [facility] Magnesium 0.78 0.69 - 1.07 [facility] mmol/L [facility] Specimen Anatomical Collection Method Collection Time Receive d Time (Source) Location / / Volume Laterality Blood specimen 07/05/2017 4:55 PM 017 5:24 (specimen) EST PM EST Resulting Agency Comment Spec In Lab Daphne Shahid MD CHEMISTRY ORDERABLES Performing Organization Address City/[facility]/ZIP Code Phon e Number [address] (ABNORMAL) Basic Metabolic Panel (non-fasting) (07/05/2017 4:55 PM EST) athologist [facility] Glucose Lvl 230 (H) 65 - [address] [facility] mg/dL [facility] Comment: Diabetes: >=200 mg/dL plus symp toms BUN 19 10 - 20 mg/dL [facility]ORY Creatinine 1.04 0.80 - 1.50 mg/dL [facility] [...] or in patients with acute kidney failure. [email or web address] http://SETVI/DHMCnkf Specimen Anatomical Collection Method Collection Time Receive d Time (Source) Location / / Volume Laterality Blood specimen 07/05/2017 4:55 PM 017 5:24 (specimen) EST PM EST Resulting Agency Comment Spec In Lab Daphne Shahid MD CHEMISTRY ORDERABLES Performing Organization Address City/[facility]/[place] [address] (ABNORMAL) APTT (07/05/2017 4:55 [...] Shahid MD HEMATOLOGY ORDERABLES Performing Organization Address City/[facility]/[place] [address] (ABNORMAL) POCT Glucose (07/05/2017 4:53 PM EST) P athologist Signature POC Glucose 208 (H) 65 - [address] [facility] mg/dL [facility] Comment: Supplemental ranges: <140 mg/dL before meals <180 mg/dL all other times of the day Specimen Anatomical Collection Method Collection Time Receive d Time (Source) Location / / Volume Laterality Blood specimen 07/05/2017 4:53 PM 017 4:53 (specimen) EST PM EST Daphne Shahid MD POINT OF CARE TEST ORDERABLE S Performing Organization Address City/State/[place] [address] EKG 12 Lead (07/05/2017 4:32 PM EST) Component Value Ref Range Test Analysis Performed Pathologis t Method Time At Signature Ventricular rate 97 BPM MUSE SYSTEM Atrial Rate 97 BPM MUSE SYSTEM P-R Interval 148 ms MUSE SYSTEM QRS Duration 96 ms MUSE SYSTEM Q-T Interval 364 ms MUSE SYSTEM QTC Calculated 462 ms MUSE SYSTEM (Bezet) Calculated P [place] 48 degrees MUSE SYSTEM Calculated R [place] -33 degrees MUSE SYSTEM Calculated T [place] 98 degrees MUSE SYSTEM INTERPRETATION Normal sinus [...]
Routine documented in this encounter Care Teams Insulator Helper Relationship Specialty Start Date End Date Lovely Vicente MD PCP - General 04/16/[address] [place] [address] documented as of this encounter
--- OUTSIDE RECORDS SUMMARY | 2022-02-27 15:18 | XMS_ITS | Encounter Summary ---
:1945 [place] [address] Care Team Providers Name Role Phone Lovely Vicente MD Primary Care Provider Reason for Visit Auth/Cert Specialty Diagnoses / Procedures Referred By Contact Refer red To Contact Diagnoses STEMI (ST elevation myocardial infarction) NSTEMI STEMI Procedures CARDIAC CATHETERIZATION NAYE IPI Referral ID Status Reason Start Date Expiration Date Visits Requ ested Visits Authorized [id number] 1 1 Encounter Details Date Type Department Care Team Description 07/07/2017 Anesthesia Event Main Operating Room Yifan Jaime MD [facility] [place] [address] [facility] Ginny Murray MD [facility] [place] [address] [facility] [place] [address] Anesthesia Record Procedure Summary Procedure Name [...] Crum, Angela Gomes, left; 18 gauge; removed CABLE TELEVISION TECHNICIAN per policy/procedure; 07/11/17; 2355 Intra-Aortic Balloon [...] Miller, Carrie L, Type: Cuffed; ETT Size: JEWEL GRINDER 8 mm; Santiago Blade: 2; Notes: Asleep, [...] Murray MD - 07/08/2017 5:08 PM EST [facility] Department of Anesthesiology Post-procedure Note Patient: Don Fatima Procedure Summary Date Anesthesia Start Anesthesia Stop Room / Location 07/07/17 1335 1836 [facility] OR [facility] MAIN OR Procedure Diagnosis Surgeon Responsible Provider @CABG, USING ARTERIAL GRAFT;SINGLE ARTERIAL GRAFT (WRVU 33.75) (N/A Chest); @CABG, TWO VENOUS GRAFTS & ARTERIAL GRAFT (WRVU 7.93) (N/A Chest); ENDOSCOPIC HARVEST VEIN(S) FOR CABG (WRVU 0.31) (Right Leg) (CAD) Yuan Freitas MD Hartman, Gregg S, MD All Anesthesia Providers: Anesthesiologist: Yifan Perez MD Biometrics Instructor: Ginny Murray MD Most Recent Vitals: 07/08/17 [...] SETUP performed by Manny Mcknight MD at [facility] MAIN OR ??? PRO COLONOSCOPY, REMV LESN, SNARE 01/16/2014 COLONOSCOPY, POLYPECTOMY, REMOVAL LESION BY SNARE performed by Nohemi Jaimes MD at [facility] ENDOSCOPY ??? PRO THYROIDECTOMY 03/28/2013 THYROIDECTOMY, TOTAL OR COMPLETE performed by Manny Mcknight MD at [facility] MAIN OR Social History Substance [...] Nobles MD [facility] ER DR TADEO [place], [place] [address] (Wo rk) 06/10/2022 Office Visit Dermatology Laura Scherer MD [facility] DR TEJA GR-DERMAT OGY [place], [place] [address] (Wo rk) documented as of [...] mg documented in this encounter Care Teams Floor Finisher Helper Relationship Specialty Start Date End Date Lovely Vicente MD PCP - General 04/16/[address] [place] [address] documented as of this encounter
--- OUTSIDE RECORDS SUMMARY | 2022-02-27 15:19 | XMS_ITS | Encounter Summary ---
:1945 Author Organization [facility] [place] [address] Care Team Providers Name Role Phone Angela Holliday STACIE Primary Care Provider Encounter Details Date Type Department Care Team Description 04/04/2013 Telephone Urology at [facility] Parker Sanchez MD [facility] [place] [address] UROLOGY DEPT [phone] [place], [place] [address] (Wo rk) Social History Tobacco [...] MD [facility] ER DR CARLYLE [place] 0[address] (Wo rk) 06/10/2022 Office Visit Dermatology Laura Scherer MD [facility] ER DR [address]-DERMAT [place], [place] [address] (Wo rk) documented as of this encounter Visit Diagnoses Not on filedocumented in this encounter Care Teams Insurance Underwriter Sales Relationship Specialty Start Date End Date Angela Holliday APRN PCP - General 01/25/13 04/15/[address] [place] [address] documented as of this encounter
--- OUTSIDE RECORDS SUMMARY | 2022-02-27 15:19 | XMS_ITS | Encounter Summary ---
:1945 [address] [facility] [place] [address] Care Team Providers Name Role Phone MiyaLokeshAngela STACIE Primary Care Provider Reason for Visit Reason Onset Date Comments Post-op Problem 04/05/2013 voiding trial Encounter Details Date Type Department Care Team Description 04/05/2013 Telephone Urology [place] [facility] Blade Smith, Post-op Problem [facility] (voiding trial) [place] [address] UROLOGY DEPT [place] [id number] (Wo rk) Social History Tobacco Use Types [...] MD [facility] [address] TADEO [place], [place] [address] (Wo rk) 06/10/2022 Office Visit Dermatology Laura Scherer MD [facility] [address] TEJA GR-DERMAT OLOGY [place], [place] [address] (Wo rk) documented as of this encounter Visit Diagnoses Not on filedocumented in this encounter Care Teams Deportation Officer Relationship Specialty Start Date End Date Angela Holliday APRN PCP - General 01/25/13 04/15/[address] [place] [address] documented as of this encounter
--- OUTSIDE RECORDS SUMMARY | 2022-02-27 15:19 | XMS_ITS | Encounter Summary ---
:1945 Author Organization [facility] [place] [address] Care Team Providers Name Role Phone Lovely Vicente MD Primary Care Provider Reason for Visit Reason Comments Skin Check Encounter Details Date Type Department Care Team Description 06/05/2016 Office Visit Dermatology at [facility] ist[facility] of melanoma; Abdelrahman HOOPER MD Seborrheic keratosis; [address] [facility] [place] (actinic keratosis); [place] [address] Multiple nevi; [phone] [facility] Scar [address]-DERMATOLGY [place], [place] [address] Social History Tobacco Use Types Packs/Day Years Used Date Former Smoker Smokeless Tobacco: Never Used Alcohol Use Standard Drinks/Week Comments No 0 (1 standard drink = 0.6 oz pure alcoho l) Sex Assigned at Date Recorded Not on file documented as of this encounter Progress Notes Ginny Christinasen LPN - 06/05/2016 10:15 AM EST DERMATOLOGY [...] Diagnostic, Drum (ACCU-CHEK COMPACT TEST) Strip by [facility]Non- Drug; Combo Route) route 2 times daily. [...] encounter. Rigoberto Garcia MD Section of Dermatology [facility] documented in this encounter Plan of Treatment Upcoming Encounters Date Type Specialty Care Team Description 03/26/2022 Office Visit Cardiology Vitaliy Nobles MD [facility] CENT ER [address] TADEO [place], [place] 0[address] (Wo rk) 06/10/2022 Office Visit Dermatology Laura Scherer MD [facility] MEDICAL [facility] ER DR TEJA GR-DERMAT [facility] [place], [place] [address] (Wo rk) documented as of this encounter Visit Diagnoses Diagnosis History of melanoma Personal history of malignant melanoma o f skin Seborrheic keratosis Other seborrheic keratosis [place] (actinic keratosis) Actinic keratosis Multiple nevi Benign neoplasm of skin, site unspecifie d Scar Scar condition and fibrosis of skin documented in this encounter Care Teams Plumber Supervisor Relationship Specialty Start Date End Date Lovely Vicente MD PCP - General 04/16/15 [facility] [address] [place] [address] documented as of this encounter
--- OUTSIDE RECORDS SUMMARY | 2022-02-27 15:19 | XMS_ITS | Encounter Summary ---
:1945 Author Organization [facility] [address] Care Team Providers Name Role Phone Miya Angela STACIE Primary Care Provider Encounter Details Date Type Department Care Team Description 04/24/2013 Telephone Urology at [facility] Zhen Bowman MD [facility] [place] [address] UROLOGY DEPT [phone] [place], [place] [address] (Wo rk) Social History Tobacco [...] Nobles MD [facility] DR TADEO [place], [place] [address] (Wo rk) 06/10/2022 Office Visit Dermatology Laura Scherer MD [facility] DR TEJA GR-DERMAT OGY [place], [place] [address] (Wo rk) documented as of this encounter Visit Diagnoses Not on filedocumented in this encounter Care Teams Control Chemist Relationship Specialty Start Date End Date Angela Holliday APRN PCP - General 01/25/13 04/15/[address] [place] [address] documented as of this encounter
--- OUTSIDE RECORDS SUMMARY | 2022-02-27 15:19 | XMS_ITS | Encounter Summary ---
:1945 Author Organization [facility] [place] [address] Care Team Providers Name Role Phone MiyaAngela STACIE Primary Care Provider Encounter Details Date Type Department Care Team Description 11/27/2013 Orders Only Urology at [place] Blade Smith, Urinary retention [facility] (Primary Dx) [place] [address] UROLOGY DEPT [place], [place] [address] Social History Tobacco Use Types [...] Nobles MD [facility] ER DR TADEO [place], [place] [address] (Wo rk) 06/10/2022 Office Visit Dermatology Laura Scherer MD [facility] DR [address]-DERMAT OLOGY [place], [place] [address] (Wo rk) documented as of [...] Organization Address City/State/[place] [address] [facility] documented in this encounter Visit Diagnoses Diagnosis Urinary retention - Primary Retention of urine, unspecified documented in this encounter Care Teams Front Counter Attendant Relationship Specialty Start Date End Date Angela Holliday APRN PCP - General 01/25/13 04/15/[address] [place] [address] documented as of this encounter
--- OUTSIDE RECORDS SUMMARY | 2022-02-27 15:19 | XMS_ITS | Encounter Summary ---
:1945 Author Organization [facility] [address] Care Team Providers Name Role Phone MiyaAngela STACIE Primary Care Provider Encounter Details Date Type Department Care Team Description 04/26/2014 Office Visit Endocrinology at [facility] Albertina Palmer, Papillary thyroid [facility] [place] [address] CENTER [phone] ENDOCRINOLOGY DEPT [place] [address] Social History Tobacco Use Types Packs/Day Years [...] on [place]. Rosalind Palmer Endocrine Staff Physician [facility] Rosalind Palmer MD - [...] one yr Rosalind Palmer Endocrine Staff Physician [facility] documented in this encounter Plan of Treatment Upcoming Encounters Date Type Specialty Care Team Description 03/26/2022 Office Visit Cardiology Vitaliy Nobles MD [facility] [address] TADE[address] [place], [place] [address] (Wo rk) 06/10/2022 Office Visit Dermatology Laura Scherer MD [facility] DR TEJA GR-DERMAT OLOGY [place], [place] 0[address] (Wo rk) documented as of [...] BR et al. J Clin Endo Metab 1999;84:4041-0560). Assay performed using the DPC Immulite T [...] Organization Address City/State/[place] [address] CERNER MILLENNIUM (ABNORMAL) TSH [...] Organization Address City/State/[place] [address] [facility] documented in this encounter Visit Diagnoses Diagnosis Papillary thyroid carcinoma Malignant neoplasm of thyroid gland documented in this encounter Care Teams Firmware Engineer Relationship Specialty Start Date End Date Angela Holliday APRN PCP - General 01/25/13 04/15/[address] [place] [address] documented as of this encounter
--- OUTSIDE RECORDS SUMMARY | 2022-02-27 15:19 | XMS_ITS | Encounter Summary ---
:1945 Author Organization [facility] [place] [address] Care Team Providers Name Role Phone Lovely Vicente MD Primary Care Provider Reason for Visit Reason Comments Medication Refill Encounter Details Date Type Department Care Team Description 05/10/2015 Refill Endocrinology at [facility] Rosalind Covarrubias, [facility] [place] [address] [facility] [phone] ENDOCRINOLOGY [place], [place] [address] (Wo rk) Social History [...] [facility] ER DR TADEO [place], [place] [address] (Wo rk) 06/10/2022 Office Visit Dermatology Laura Scherer MD [facility] ER DR TEJA GR-DERMAT [place], [place] [address] (Wo rk) documented as of this encounter Visit Diagnoses Not on filedocumented in this encounter Care Teams Economic Consultant Relationship Specialty Start Date End Date Lovely Vicente MD PCP - General 04/16/[address] [place] [address] documented as of this encounter
--- OUTSIDE RECORDS SUMMARY | 2022-02-27 15:19 | XMS_ITS | Encounter Summary ---
:1945 Author Organization [facility] [place] [address] Care Team Providers Name Role Phone Lovely Vicente MD Primary Care Provider Reason for Visit Reason Comments Skin Lesion Encounter Details Date Type Department Care Team Description 11/24/2016 [facility] uncertain behavior of skin; Road IIIMD Pigmented skin lesion of uncertain natur e; [address] [facility] [place] [address] [facility] SIM[facility]N-DERMATOLGY [place], [place] 0[address] Social History Tobacco Use [...] or concerns, please call the office at [phone]. If it is after 5PM, or a holiday or weekend, please call [phone] and ask for the Inspector Wreath on-call. documented in this encounter Progress Notes [...] 71 y.o. year old male.Established patient of [facility]. Last seen 06/05/16. Here today for new [...] encounter. Rigoberto Garcia MD Section of Dermatology [facility] documented in this encounter Plan of Treatment Upcoming Encounters Date Type Specialty Care Team Description 03/26/2022 Office Visit Cardiology Vitaliy Nobles MD [facility] DR TADEO [place], [place] [address] (Wo lissa) 06/10/2022 Office Visit Dermatology Laura Scherer MD [facility] DR TEJA GR-DERMAT [place], [place] [address] (Wo lissa) documented as of [...] Ref Test Analysis Performed At [facility] Range Method Time Signature Surgical [id number] ?Location: [facility] Report The signing pathologist has (i) [...] Organization Address City/State/[place] [address] Specimen to Pathology (NON-OR) (11/24/2016 8:28 AM EDT) Specimen Anatomical Collection Method Collection Time Receive d Time (Source) Location / / Volume Laterality AP Specimen 11/24/2016 8:28 AM 7 9:29 EDT AM EDT Narrative [facility] - 11/24/2016 9:29 AM EDT Specimen requisition ordered. ??Separate Pathology report to follow Resulting Agency Comment Spec In Lab Rigoberto Garcia III, MD PATHOLOGY/CYTOLOGY ORDERABLE S Performing Organization Address City/State/[place] [address] documented in this encounter Visit Diagnoses Diagnosis Neoplasm of uncertain behavior of skin Pigmented skin lesion of uncertain natur e History of melanoma Personal history of malignant melanoma o f skin documented in this encounter Care Teams Hand Picker Relationship Specialty Start Date End Date Lovely Vicente MD PCP - General 04/16/[address] [place] [address] documented as of this encounter
--- OUTSIDE RECORDS SUMMARY | 2022-02-27 15:19 | XMS_ITS | Encounter Summary ---
:1945 Author Organization [facility] [place] [address] Care Team Providers Name Role Phone Lovely Vicente MD Primary Care Provider Encounter Details Date Type Department Care Team Description 09/03/2016 Laboratory Appointment Lab at [facility] Hx of papillary [facility] [place] [id number] Social History Tobacco Use Types Packs/Day Years Used Date Former Smoker Smokeless Tobacco: Never Used Alcohol Use Standard Drinks/Week Comments No 0 (1 standard drink = 0.6 oz pure alcoho l) Sex Assigned at Date Recorded Not on file documented as of this encounter Plan of Treatment Upcoming Encounters Date Type Specialty Care Team Description 03/26/2022 Office Visit Cardiology Vitaliy Nobles MD [facility] MEDICAL [facility] ER DR TADEO [place], [place] [address] (Wo rk) 06/10/2022 Office Visit Dermatology Laura Scherer MD [facility] ER DR TEJA GR-DERMAT [place], [place] [address] (Wo rk) documented as [...] EST) P athologist Signature Thyroglobulin <0.4 <=54.9 [facility] ng/mL [facility] Comment: Interpret with caution. Tg [...] BR et al. J Clin Endo Metab 1999;84:3496-3580). Assay performed using the DPC Immulite T g immunometric assay. (lowest detection limit is <0.4 ng/ml). Thyroglob Ab <20.0 0.0 - 40.0 IU/mL [facility] Comment: Assay performed is the [...] Organization Address City/State/[place] [address] TSH (09/03/2016 11:07 AM EST) P athologist Signature TSH 3.01 0.27 - 4.20 KATALINA DAVIS mcIU/mL [facility] Specimen Anatomical Collection Method Collection Time Receive d Time (Source) Location / / Volume Laterality Blood specimen 09/03/2016 11:07 7 (specimen) AM EST 11:22 AM EST Resulting Agency Comment Spec In Lab Luz Prescott MD CHEMISTRY ORDERABLES Performing Organization Address City/State/[place] [address] documented in this encounter Visit Diagnoses Diagnosis Hx of papillary thyroid carcinoma Personal history of malignant neoplasm o f thyroid documented in this encounter Care Teams Jewelry Maker Relationship Specialty Start Date End Date Lovely Vicente MD PCP - General 04/16/[address] [place] [address] documented as of this encounter
--- OUTSIDE RECORDS SUMMARY | 2022-02-27 15:19 | XMS_ITS | Encounter Summary ---
:1945 Author Organization [place] [place] [address] Care Team Providers Name Role Phone Lovely Vicente MD Primary Care Provider Encounter Details Date Type Department Care Team Description 07/05/2017 Telephone Cardiology Kim Galindo MD [facility] [place] [address] CARDIOLOGY DEPT [phone] [place], [place] [address] (Wo rk) Social History Tobacco [...] Referring Provider: Ivania CROWELL) Patient Location: [facility] Presenting Symptoms per OSH: 72 year [...] infarct and elevated troponin, transport patient to [facility] for cath this afternoon and arrhythmia monitoring. Kim Galindo MD Numerical Control Tool Programmer documented in this encounter Plan of Treatment Upcoming Encounters Date Type Specialty Care Team Description 03/26/2022 Office Visit Cardiology Vitaliy Nobles MD [facility] DR TADE[address] [place], [place] [address] (Wo rk) 06/10/2022 Office Visit Dermatology Laura Scherer MD [facility] DR [address]-DERMAT [place], [place] [address] (Wo rk) documented as of this encounter Visit Diagnoses Not on filedocumented in this encounter Care Teams Grinder Brake Lining Relationship Specialty Start Date End Date Lovely Vicente MD PCP - General 04/16/[address] [place] [address] documented as of this encounter
--- OUTSIDE RECORDS SUMMARY | 2022-02-27 15:19 | XMS_ITS | Encounter Summary ---
:1945 Author Organization [facility] [place] [address] Care Team Providers Name Role Phone MiyaAngela TSACIE Primary Care Provider Reason for Visit Reason Onset Date Comments Advice Only 03/31/2013 Encounter Details Date Type Department Care Team Description 03/31/2013 Telephone Urology at [facility] Daniele Trejo III, MD Advice Only [facility] [place] [address] [place] [id number] [phone] (Wo rk) Social History Tobacco Use Types [...] [facility] MEDICAL [facility] ER CARDIOLOGY [place], [place] [address] (Wo rk) 06/10/2022 Office Visit Dermatology Laura Scherer MD [facility] ER DR [address]-DERMAT [place], [place] [address] (Wo rk) documented as of this encounter Visit Diagnoses Not on filedocumented in this encounter Care Teams District Manager Postal Service Relationship Specialty Start Date End Date Angela Holliday APRN PCP - General 01/25/13 04/15/[address] [place] [address] documented as of this encounter
--- OUTSIDE RECORDS SUMMARY | 2022-02-27 15:19 | XMS_ITS | Encounter Summary ---
:1945 Author Organization [facility] [place] [address] Care Team Providers Name Role Phone Lovely Vicente MD Primary Care Provider Reason for Visit Reason Onset Date Comments Medication Refill 12/24/2016 Encounter Details Date Type Department Care Team Description 12/24/2016 Refill Endocrinology at [facility] Luz Stallings MD [facility] [place] [address] ENDOCRINOLOGY DEPT [phone] [place], [place] [address] (Wo rk) Social History Tobacco [...] Team Description 03/26/2022 Office Visit Cardiology Vitaliy Noblse MD [facility] [address] TADE[address] [place], [place] [address] (Wo rk) 06/10/2022 Office Visit Dermatology Laura Scherer MD [facility] DR TEJA GR-DERMAT OLOGY [place], [place] [address] (Wo rk) documented as of this encounter Visit Diagnoses Not on filedocumented in this encounter Care Teams Mixing Roll Operator Relationship Specialty Start Date End Date Lovely Vicente MD PCP - General 04/16/[address] [place] [address] documented as of this encounter
--- OUTSIDE RECORDS SUMMARY | 2022-02-27 15:19 | XMS_ITS | Encounter Summary ---
:1945 Author Organization [facility] [place] [address] Care Team Providers Name Role Phone Lovely Vicente MD Primary Care Provider Reason for Visit Reason Comments Nevus excision dysplastic nevus mi d upper abdomen Encounter Details Date Type Department Care Team Description 12/03/2016 Procedure visit Dermatology at Halima Dubois Dysplastic nevus of Road MD Adrián trunk [address] [facility] [address] [facility] [phone] [address]-DERMATOLGY [place] [address] Social History Tobacco Use Types Packs/Day Years [...] Halima Cordero MD during the day at [phone] Nurse: Mira [phone] Amy After 5 PM and on weekends, please call the hospital number , and ask for the Steam Setter risk consultant. documented in this encounter Progress Notes Halima Cordero MD - 12/10/2016 5:41 PM EDT Gwendolyn, Excision shows scar, there is no residual of the severely dysplastic nevus. Please notify patient and check on wound healing. Thank you, DTB Halima Cordero MD - 12/03/2016 3:00 PM EDT Images from the original note were not included. Dermatology Procedure note: Attending: Halima Cordero MD Roller Setter: Mira James LPN Referring MD: Rigoberto Garcia [...] to call the clinic or the on-call roller repairer over the weekend. ??? Name of Procedure? [...] MD [facility] [address] [place], [place] [address] (Wo rk) 06/10/2022 Office Visit Dermatology Laura Scherer MD [facility] [address]-DERMAT [place], [place] [address] (Wo rk) documented as of [...] Component Value Ref Test Analysis Performed At [facility] Method Time Signature Surgical [id number] ?Location: [facility] Report The signing pathologist has (i) examined [...] Clinical Diagnosis: Dysplastic nevus, see previous pathology [id number] SPECIMEN PROCESSING A - Labeled/Fixative: Mid-upper abdomen, [...] MD PATHOLOGY/CYTOLOGY ORDERABLE S Performing Organization Address City/[facility]/[place] [address] Specimen to Pathology (NON-OR) (12/03/2016 3:31 PM EDT) Specimen Anatomical Collection Method Collection Time Receive d Time (Source) Location / / Volume Laterality AP Specimen 12/03/2016 3:31 PM 7 6:27 EDT PM EDT Narrative [facility] - 12/03/2016 6:27 PM EDT Specimen requisition ordered. ??Separate Pathology report to follow Resulting Agency Comment Spec In Lab Halima Cordero MD PATHOLOGY/CYTOLOGY ORDERABLE S Performing Organization Address City/State/[place] [address] documented in this encounter Visit Diagnoses Diagnosis Dysplastic nevus of trunk Benign neoplasm of skin of trunk, except scrotum documented in this encounter Care Teams Inspectors And Regulatory Officers Relationship Specialty Start Date End Date Lovely Vicente MD PCP - General 04/16/[address] [place] [address] documented as of this encounter
--- OUTSIDE RECORDS SUMMARY | 2022-02-27 15:19 | XMS_ITS | Encounter Summary ---
:1945 [place] [address] Care Team Providers Name Role Phone Lovely Vicente MD Primary Care Provider Reason for Visit Reason Onset Date Comments Other 12/09/2016 RESULTS Encounter Details Date Type Department Care Team Description 12/09/2016 Telephone Dermatology at [facility] Halima Cadet MD Other (RESULTS) [address] [facility] [place] [address] [facility]-DERMATOLGY [phone] [place], [place] [address] (Wo rk) Social History Tobacco [...] EDT Spoke with patient's , Kisha (personal open claims representative). I advised her Don's pathology results [...] back. She can be reached back at [phone] documented in this encounter Plan of Treatment Upcoming Encounters Date Type Specialty Care Team Description 03/26/2022 Office Visit Cardiology Vitaliy Nobles MD [facility] [address] [place], [place] [address] (Wo rk) 06/10/2022 Office Visit Dermatology Laura Scherer MD [facility] DR [address]-DERMAT [facility] [place], [place] [address] (Wo rk) documented as of this encounter Visit Diagnoses Not on filedocumented in this encounter Care Teams Service Delivery Director Relationship Specialty Start Date End Date Lovely Vicente MD PCP - General 04/16/[address] [place] [address] documented as of this encounter
--- OUTSIDE RECORDS SUMMARY | 2022-02-27 15:19 | XMS_ITS | Encounter Summary ---
:1945 Author Organization [facility] [address] Care Team Providers Name Role Phone Lovely Vicente MD Primary Care Provider Reason for Visit Reason Comments Follow-up Encounter Details Date Type Department Care Team Description 06/03/2017 Office Visit Dermatology at Rigoberto Forman benign nevi; Abdelrahman HOOPER MD History of melanoma; [address] [facility] History of dysplastic nevus; [place] [address] Skin exam for malignant neoplasm [phone] [facility]-DERMATOLGY [place], [place] [address] Social History Tobacco Use Types [...] Visit Cardiology Vitaliy Nobles MD [facility] MEDICAL [facility] ER [address] TADE[address] [place], [place] [address] (Wo rk) 06/10/2022 Office Visit Dermatology Laura Scherer MD [facility] MEDICAL [facility] [address] TE[address]-DERMAT [place], [place] [address] (Wo rk) documented as of [...] skin documented in this encounter Care Teams Inside Account Representative Relationship Specialty Start Date End Date Lovely Vicente MD PCP - General 04/16/[address] [place] [address] documented as of this encounter
--- OUTSIDE RECORDS SUMMARY | 2022-02-27 15:19 | XMS_ITS | Encounter Summary ---
:1945 Author Organization [facility] [address] Care Team Providers Name Role Phone Lovely Vicente MD Primary Care Provider Reason for Visit Reason Comments Skin Check Encounter Details Date Type Department Care Team Description 04/16/2015 Follow-Up Dermatology at Rigoberto Forman x of melanoma of skin; Abdelrahman HOOPER MD Multiple benign nevi [address] [place] [address] [facility]-DERMATOLGY [place], [place] [address] (Wo rk) Social History Tobacco [...] Diagnostic, Drum (ACCU-CHEK COMPACT TEST) Strip by [facility].(Non- Drug; Combo Route) route 2 times daily. [...] Nobles MD [facility] CARDIOLOGY [place], [place] [address] (Wo rk) 06/10/2022 Office Visit Dermatology Laura Scherer MD [facility] [address] GR-DERMAT [place], [place] [address] (Wo rk) documented as of this encounter Visit Diagnoses Diagnosis Hx of melanoma of skin Personal history of malignant melanoma o f skin Multiple benign nevi Benign neoplasm of skin, site unspecifie d documented in this encounter Care Teams Retort Engineer Relationship Specialty Start Date End Date Lovely Vicente MD PCP - General 04/16/[address] [place] [address] documented as of this encounter
--- OUTSIDE RECORDS SUMMARY | 2022-02-27 15:19 | XMS_ITS | Encounter Summary ---
:1945 Author Organization [facility] [place] [address] Care Team Providers Name Role Phone Som Holliday APRN Primary Care Provider Encounter Details Date Type Department Care Team Description 04/11/2014 Procedure visit Gastroenterology at [facility] Esophageal reflux [facility] Luz Winchester RN (Primary Dx) [place] [address] Social History Tobacco Use Types Packs/Day Years Used Date Former Smoker Alcohol Use Standard Drinks/Week Comments No 0 (1 standard drink = 0.6 oz pure alcoho l) Sex Assigned at Date Recorded Not on file documented as of this encounter Progress Notes Adalid Can MD - 04/13/2014 3:43 PM EDT ESOPHAGEAL MANOMETRY Don Fatima Male, 69 yrs, 1945 PCP: SOM HOLLIDAY ROBOTICS SPECIALIST: NONE STUDY DATE: 04/11/14 PROVIDER: [place] ([id number]) INDICATION Reflux; preoperative evaluation. METHODS Stationary esophageal manometry was performed with the Lat49 esophageal motility system utilizing the Polygram software [...] of the esophagus. Adalid Can, PhD, MD dam worker, [facility] [employer] Section of Gastroenterology and Hepatology [facility] [place] [address] V: [phone] F: [phone] [facility]gabriela CC/EC: PCP - staff msg copy 04/13/14 Henrique Taylor MD - fax copy 04/13/14 Luz Keller RN - 04/11/2014 8:14 AM EDT Esophageal manometry performed without difficulty and Was well tolerated. documented in this encounter Plan of Treatment Upcoming Encounters Date Type Specialty Care Team Description 03/26/2022 Office Visit Cardiology Vitaliy Nobles MD [facility] ER DR TADEO [place], [place] [address] (Wo rk) 06/10/2022 Office Visit Dermatology Laura Scherer MD [facility] DR TE[address] GR-DERMAT [facility] [place], [place] [address] (Wo rk) documented as of this encounter Visit Diagnoses Diagnosis Esophageal reflux - Primary documented in this encounter Care Teams Graphic Technician Relationship Specialty Start Date End Date Som Holliday APRN PCP - General 01/25/13 04/15/[address] [place] [address] documented as of this encounter
--- OUTSIDE RECORDS SUMMARY | 2022-02-27 15:19 | XMS_ITS | Encounter Summary ---
:1945 Author Organization [place] [address] Care Team Providers Name Role Phone Lovely Vicente MD Primary Care Provider Reason for Visit Reason Comments Thyroid Cancer Encounter Details Date Type Department Care Team Description 06/05/2015 Office Visit Endocrinology at [facility] Albertina Prescott, History of papillary [facility] MD Luz adenocarcinoma of [facility] thyroid (Primary Dx) [place] [address] CENTER [phone] [place] [address] Social History Tobacco Use Types Packs/Day Years [...] the thyroid gland were obtained using a Snipd ultrasound machine. All measurements are given as AP x Transverse x Longitudinal Right Lobe: Absent Left Lobe: Absent Isthmus: Absent Central/Lateral neck: no morphologically abnormal lymph nodes. Impression: No sonographic evidence of recurrence. LUZ PRESCOTT MD Balance Bridge Assemblerscientist electronics Section of Endocrinology [facility] Luz Prescott MD [...] Drum (ACCU-CHEK COMPACT TEST) Strip by [facility].(Non-Drug; Combo Route) route 2 times daily. Yes [...] --f/u in 1 year LUZ PRESCOTT MD Balance Bridge Assemblerscientist electronics Section of Endocrinology [facility] documented in this [...] Nobles MD [facility] DR [place], [place] [address] (Wo rk) 06/10/2022 Office Visit Dermatology Laura Scherer MD [facility] DR [address] GR-DERMAT [place], [place] [address] (Wo rk) documented as of [...] athologist Signature Thyroglobulin 0.6 <=54.9 CERNER ng/mL [facility] Comment: Interpret with caution. Tg levels [...] [place] et al. J Clin Endo Metab 1999;84:6608-6968). 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
--- OUTSIDE RECORDS SUMMARY | 2022-02-27 15:19 | XMS_ITS | Encounter Summary ---
:1945 Author Organization [facility] [place] [address] Care Team Providers Name Role Phone MiyaLokeshAngela STACIE Primary Care Provider Encounter Details Date Type Department Care Team Description 04/04/2013 Orders Only General Surgery at Manny Mcknight thyroid [facility] MD Eliseo carcinoma (Primary Dx) [place] [address] GENERAL SURGERY [phone] [place], [place] [address] Social History Tobacco Use Types [...] MD [facility] CARDIOLOGY [place], [place] [address] (Wo rk) 06/10/2022 Office Visit Dermatology Laura Scherer MD [facility] DR [address] GR-DERMAT [place], [place] [address] (Wo rk) documented as of this encounter Visit Diagnoses Diagnosis Papillary thyroid carcinoma - Primary Malignant neoplasm of thyroid gland documented in this encounter Care Teams Crimping Press Operator Relationship Specialty Start Date End Date Angela Holliday APRN PCP - General 01/25/13 04/15/[address] [place] [address] documented as of this encounter
--- OUTSIDE RECORDS SUMMARY | 2022-02-27 15:19 | XMS_ITS | Encounter Summary ---
:1945 Author Organization [facility] [place] [address] Care Team Providers Name Role Phone Lovely Vicente MD Primary Care Provider Reason for Visit Reason Onset Date Comments Referral 10/30/2015 Urgent referral for mac on [address]AVIS Encounter Details Date Type Department Care Team Description 10/30/2015 Telephone Ophthalmology at [facility] Jayson Ruiz Referral (Urgent [facility] MD Grabiel referral for mac on [facility] [address] [place]) [place] [address] OPHTHALMOLOGY DEPT. [phone] [place], [place] [address] (Wo rk) Social History Tobacco [...] MD [facility] [address] [place], [place] [address] (Wo rk) 06/10/2022 Office Visit Dermatology Laura Scherer MD [facility] DR TE[address] GR-DERMAT [facility] [place], [place] [address] (Wo rk) documented as of this encounter Visit Diagnoses Not on filedocumented in this encounter Care Teams Decorator Inspector Relationship Specialty Start Date End Date Lovely Vicente MD PCP - General 04/16/[address] [facility] [address] [place] [address] documented as of this encounter
--- OUTSIDE RECORDS SUMMARY | 2022-02-27 15:19 | XMS_ITS | Encounter Summary ---
:1945 Author Organization [facility] [place] [address] Care Team Providers Name Role Phone Lovely Vicente MD Primary Care Provider Reason for Visit Reason Onset Date Comments Pre Procedure Call 12/02/2016 Encounter Details Date Type Department Care Team Description 12/02/2016 Telephone Dermatology at [facility] Mira James LPN Pre Procedure Call [address] [place] [address] Social History Tobacco Use Types Packs/Day [...] MD [facility] [address] [place], [place] [address] (Wo rk) 06/10/2022 Office Visit Dermatology Laura Scherer MD [facility] DR [address]-DERMAT [facility] [place], [place] [address] (Wo rk) documented as of this encounter Visit Diagnoses Not on filedocumented in this encounter Care Teams Partner Manager Relationship Specialty Start Date End Date Lovely Vicente MD PCP - General 04/16/[address] [place] [address] documented as of this encounter
--- OUTSIDE RECORDS SUMMARY | 2022-02-27 15:19 | XMS_ITS | Encounter Summary ---
:1945 Author Organization [facility] [place] [address] Care Team Providers Name Role Phone Angela Holliday APRN Primary Care Provider Reason for Visit Reason Comments Skin Check Encounter Details Date Type Department Care Team Description 07/31/2013 Follow-Up Dermatology at Rigoberto Forman eoplasm of unspecified nature of bone, soft tissue, and skin (Primary Dx); Abdelrahman HOOPER MD Seborrheic psoriasis- scalp and ingtergl uteal area; [address] [facility] Atypical nevus [place] [address] [facility]-DERMATOLGY [place], [place] [address] (Wo rk) Social History Tobacco [...] encounter. Rigoberto Albarran MD Section of Dermatology [facility] documented in this encounter Plan of Treatment Upcoming Encounters Date Type Specialty Care Team Description 03/26/2022 Office Visit Cardiology Vitaliy Nobles MD [facility] [address] [place], [place] [address] (Wo lissa) 06/10/2022 Office Visit Dermatology Laura Scherer MD [facility] DR TE[address] GR-DERMAT O[place], [place] [address] (Mikayla alcaraz) Scheduled Orders Name [...] Component Value Ref Test Analysis Performed At [facility] gist Range Method Time Signature Surgical CERNER Pathology ? [facility] Report ? Provider: ?? RIGOBERTO ALBARRAN III Pt. Name: ?? GREGORY HOANG ?A ? Acc #: ?[id number] ? Pt. ? Col Date: ?? 07/31/2013 [...] 0.9 x 0.8 x 0.2 cm. ? [facility] ? Provider: ?? DEION III, RIGOBERTO Pt. Name: ?? GREGORY HOANG ?A ? Acc #: ?[id number] ? Pt. ? Col Date: ?? 07/31/2013 [...] MD PATHOLOGY/CYTOLOGY ORDERABLE S Performing Organization Address City/[facility]/ZIP [place] [address] CERNER MILLENNIUM Specimen to [...] MD PATHOLOGY/CYTOLOGY ORDERABLE S Performing Organization Address City/[facility] [place] [address] CERNER MILLENNIUM documented in this encounter Visit Diagnoses Diagnosis Neoplasm of unspecified nature of bone, soft tissue, and skin - Primary Seborrheic psoriasis- scalp and ingtergl uteal area Other psoriasis Atypical nevus of abdominal wall Benign neoplasm of skin of trunk, except scrotum documented in this encounter Care Teams Breakfast Hostess Relationship Specialty Start Date End Date Angela Holliday APRN PCP - General 01/25/13 04/15/[address] [place] [address] documented as of this encounter
--- OUTSIDE RECORDS SUMMARY | 2022-02-27 15:19 | XMS_ITS | Encounter Summary ---
:1945 Author Organization [facility] [place] [address] Care Team Providers Name Role Phone Lovely Vicente MD Primary Care Provider Encounter Details Date Type Department Care Team Description 07/10/2016 Telephone Dermatology at [facility] Rigoberto White III, [address] [place] [address] [facility] [phone] [facility] MAR[facility]-DERMAT [place], [place] [address] (Wo rk) Social History Tobacco [...] 03/26/2022 Office Visit Cardiology Vitaliy Nobles MD [facility] MED[facility] ER [address] TADE[address] [place], [place] [address] (Wo rk) 06/10/2022 Office Visit Dermatology Laura Scherer MD [facility] DR TE[address] MARIE-DERMAT [place], [place] [address] (Wo rk) documented as of this encounter Visit Diagnoses Not on filedocumented in this encounter Care Teams Blood Coordinator Relationship Specialty Start Date End Date Lovely Vicente MD PCP - General 04/16/[address] [place] [address] documented as of this encounter
--- OUTSIDE RECORDS SUMMARY | 2022-02-27 15:19 | XMS_ITS | Encounter Summary ---
:1945 Author Organization [facility] [place] [address] Care Team Providers Name Role Phone Angela Holliday APRN Primary Care Provider Reason for Visit Reason Comments Benign Prostatic Hypertrophy Encounter Details Date Type Department Care Team Description 11/28/2013 Follow-Up [facility] Blade Smith, Urinary retention (Primary D x); [facility] BPH (benign prostatic hyperplasia) [place] [address] UROLOGY DEPT [place], [place] [address] (Wo rk) Social History Tobacco [...] Vitaliy Nobles MD [facility] CARDIOLOGY [place], [place] [address] (Wo rk) 06/10/2022 Office Visit Dermatology Laura Scherer MD [facility] DR TE[address] GR-DERMAT [facility] [place], [place] [address] (Wo rk) documented as of [...] Address City/State/ZIP Code [place] [address] [facility] documented in this encounter Visit Diagnoses Diagnosis Urinary retention - Primary Retention of urine, unspecified BPH (benign prostatic hyperplasia) Unspecified hyperplasia of prostate with out urinary obstruction and other lower urinary tract symptoms (LUTS) documented in this encounter Care Teams Carpet Weaver Relationship Specialty Start Date End Date Angela Holliday APRN PCP - General 01/25/13 04/15/[address] [place] [place] [address] documented as of this encounter
--- OUTSIDE RECORDS SUMMARY | 2022-02-27 15:19 | XMS_ITS | Encounter Summary ---
:1945 Author Organization [facility] [place] [address] Care Team Providers Name Role Phone Lovely Vicente MD Primary Care Provider Encounter Details Date Type Department Care Team Description 09/03/2016 Office Visit Endocrinology at [facility] Maria Ines Stallings of [facility] MD [place] [address] [place] [address] ENDOCRINOLOGY DEPT [place], [place] [address] Social History Tobacco Use Types [...] to his magnesium pill. LUZ PRESCOTT MD [employer] Wire Technicianself pay representative Section of Endocrinology [facility] Luz Prescott MD - 09/03/2016 11:30 AM [...] sonographic evidence of recurrence. LUZ PRESCOTT MD [employer] Technicianself pay representative Section of Endocrinology [facility] documented in this encounter Plan of Treatment Upcoming Encounters Date Type Specialty Care Team Description 03/26/2022 Office Visit Cardiology Vitaliy Nobles MD [facility] CARDIOLOGY [place], [place] [address] (Wo rk) 06/10/2022 Office Visit Dermatology Laura Scherer MD [facility] [address]DERMAT OLOGY [place], [place] [address] (Wo rk) documented as of this encounter Results Thyroglobulin (09/07/2017 2:41 PM EST) athologist Signature Thyroglobulin 1.4 <=54.9 [facility] ng/mL [facility] Comment: Thyroglobulin levels may be unreliable [...] Performing Organization Address City/[facility]/ZIP Code Phon e Number [address] TSH (09/07/2017 2:41 PM EST) P athologist Signature TSH 3.93 0.27 - 4.20 KATALINA DAVIS mlU/ML [facility] Specimen Anatomical Collection Method Collection Time Receive d Time (Source) Location / / Volume Laterality Blood specimen 09/07/2017 2:41 PM 018 2:46 (specimen) EST PM EST Resulting Agency Comment Spec In Lab Luz Prescott MD CHEMISTRY ORDERABLES Performing Organization Address [facility] Phon e Number [address] Thyroglobulin (09/03/2016 11:07 AM EST) athologist Signature Thyroglobulin <0.4 <=54.9 KATALINA DAVIS ng/mL [facility] Comment: Interpret with caution. Tg levels [...] BR et al. J Clin Endo Metab 1999;84:1267-2272). Assay performed using the DPC Immulite T [...] Organization Address City/State/[place] [address] TSH (09/03/2016 11:07 AM EST) P athologist Signature TSH 3.01 0.27 - 4.20 [facility] mcIU/mL [facility] Specimen Anatomical Collection Method Collection Time Receive d Time (Source) Location / / Volume Laterality Blood specimen 09/03/2016 11:07 7 (specimen) AM EST 11:22 AM EST Resulting Agency Comment Spec In Lab Luz Prescott MD CHEMISTRY ORDERABLES Performing Organization Address City/[facility]/[place] [address] documented in this encounter Visit Diagnoses Diagnosis Hx of papillary thyroid carcinoma Personal history of malignant neoplasm o f thyroid documented in this encounter Care Teams Corn Grinder Relationship Specialty Start Date End Date Lovely Vicente MD PCP - General 04/16/[address] [place] [address] documented as of this encounter
--- OUTSIDE RECORDS SUMMARY | 2022-02-27 15:19 | XMS_ITS | Encounter Summary ---
:1945 Author Organization [facility] [place] [address] Care Team Providers Name Role Phone Angela Holliday APRN Primary Care Provider Encounter Details Date Type Department Care Team Description 04/30/2014 Orders Only Endocrinology at [facility] Albertina Palmer, Thyroid cancer [facility] Jorge Boyer MD (Primary Dx) [place] [address] [facility] [phone] CENTER ENDOCRINOLOGY DEPT [place], [place] [address] Social History Tobacco Use Types [...] Vitaliy Nobles MD [facility] ER CARDIOLOGY [place], [place] [address] (Wo rk) 06/10/2022 Office Visit Dermatology Laura Scherer MD [facility] MEDICAL [facility] DR [address]DERMAT [place], [place] [address] (Wo rk) documented as of this encounter Visit Diagnoses Diagnosis Thyroid cancer - Primary Malignant neoplasm of thyroid gland documented in this encounter Care Teams Fire Extinguisher Repairer Inspector Relationship Specialty Start Date End Date Angela Holliday APRN PCP - General 01/25/13 04/15/[address] [place] [address] documented as of this encounter
--- OUTSIDE RECORDS SUMMARY | 2022-02-27 15:19 | XMS_ITS | Encounter Summary ---
:1945 Author Organization [facility] [place] [address] Care Team Providers Name Role Phone Angela Sotelo APRN Primary Care Provider Encounter Details Date Type Department Care Team Description 01/16/2014 Surgery Gastroenterology at [facility] Nohemi Jaimes, COLONOSCOPY, [facility] Jorge mcnamara MD [place]OM[place], [place] [address] [facility] ([facility] [phone] DR Cintron) GASTROENTEROLOGY DEPT. [place], [place] [address] Social History Tobacco Use Types [...] you need to be checked. [facility] [phone] 8a-5p Same Day Endo [phone] 7a-8p Otherwise contact [phone] and ask to speak to the belt measurer electronics processor Follow up care is a shelton part [...] Jaimes MD - 01/16/2014 9:49 AM EDT [facility] Operative Note Patient Name: Gregory Fatima : [id number] MR#: [id number] Case Date: 01/16/2014 Surgeon: Surgeon(s) and Role: * Nohemi Jaimes MD - Primary Preoperative diagnosis: 5 yr surv. Full procedure note is documented under the Procedure section of eDH. documented in this encounter Plan of Treatment Upcoming Encounters Date Type Specialty Care Team Description 03/26/2022 Office Visit Cardiology Vitaliy Nobles MD [facility] MEDICAL [facility] ER DR TADE[address] [place], [place] [address] (Wo rk) 06/10/2022 Office Visit Dermatology Laura Scherer MD [facility] MEDICAL [facility] ER DR [address] GR[address]DERMAT OLOGY [place], [place] [address] (Wo rk) documented as of [...] Surgical Pathology Report (01/16/2014 9:53 AM EDT) [facility] Method Time Signature Surgical CERNER Pathology ? [facility] Report ? Provider: ?? SHREE, NOHEMI Gonzalez ?Pt. Name: ?? SURINDER ALEGRE, GREGORY Mccollum ? Acc #: ?[id number] ?Pt. MRN: ?[id number] ? Col Date: ?? 4 ? /Sex: [...] Address City/State/ZIP Code Phon e Number [address] CERNER MILLENNIUM Specimen to [...] [facility] [place] [address] CERNER MILLENNIUM Specimen to [...] Organization Address City/State/[place] [address] CERNER MILLENNIUM COLONOSCOPY (01/16/2014 7:25 AM EDT) [facility] Method Time Signature COLONOSCOPY [facility] PROVATION Endoscopy Patient Name: Gregory Fatima ? Procedure Date: 01/16/2014 7:25 AM ? N: [id number] ? Date of : 1945 ? Age: 68 ? Order #: [id number] ? Procedure: ? Colonoscopy Indications: ? High [...] a nd ? benefits, the patient was charyl med in ? satisfactory condition to und [...] Laterality 01/16/2014 7:25 AM EDT Angela Sotelo FINANCIAL SERVICES EDUCATION CONSULTANT GENERAL SURGICAL ORDERABLES Performing Organization Address City/State/ZIP [...] Routine documented in this encounter Care Teams Mold Polisher Relationship Specialty Start Date End Date Angela Sotelo APRN PCP - General 01/25/13 04/15/[address] [place] [address] documented as of this encounter
--- OUTSIDE RECORDS SUMMARY | 2022-02-27 15:19 | XMS_ITS | Encounter Summary ---
:1945 Author Organization [facility] [place] [address] Care Team Providers Name Role Phone MiyaAngela STACIE Primary Care Provider Reason for Visit Reason Comments Post Op voiding trial Encounter Details Date Type Department Care Team Description 04/05/2013 Office Visit Urology at [facility] Darryl Egan, UTI ([facility] MD tract infection) [facility] (Primary Dx) [place] [address] UROLOGY DEPT [phone] [place], [place] [address] Social History Tobacco Use Types [...] to see the patient in several weeks. aDrryl Egan MD - 04/05/2013 12:47 PM EDT [...] MD [facility] ER CARDIOLOGY [place], [place] [address] (Wo rk) 06/10/2022 Office Visit Dermatology Laura Scherer MD [facility] ER DR TEJA GR[address]DERMAT OGY [place], [place] [address] (Wo rk) documented as of [...] Value Ref Test Analysis Performed At [facility] Range Method Time Signature Urine Culture CERNER ? Patient Name: GREGORY HOANG ? Ordered By: DARRYL EGAN [facility] ? MR#: [id number] ?LOC: ??5B ? /Sex: ??1945 (68 years), [...] S ? Patient: GREGORY HOANG ? MR#: [id number] ? FOOTNOTES ? (1) ? This organism [...] Organization Address City/State/[place] [address] [facility] documented in this encounter Visit Diagnoses Diagnosis UTI (lower urinary tract infection) - Pr imary Urinary tract infection, site not specif ied documented in this encounter Care Teams Appliquer Relationship Specialty Start Date End Date Angela Holliday APRN PCP - General 01/25/13 04/15/[address] [place] [address] documented as of this encounter
--- OUTSIDE RECORDS SUMMARY | 2022-02-27 15:19 | XMS_ITS | Encounter Summary ---
:1945 Author Organization [facility] [place] [address] Care Team Providers Name Role Phone Lovely Vicenet MD Primary Care Provider Encounter Details Date Type Department Care Team Description 11/28/2016 Telephone Dermatology at [facility] Rigoberto Garcia III, [address] [place] [address] [facility] [phone] [facility] SIM[address]-DERMAT [place], [place] [address] (Wo rk) Social History Tobacco [...] provider. Rigoberto Garcia MD Section of Dermatology [facility] documented in this encounter Plan of Treatment Upcoming Encounters Date Type Specialty Care Team Description 03/26/2022 Office Visit Cardiology Vitaliy Nobles MD [facility] DR TADE[address] [place], [place] [address] (Wo rk) 06/10/2022 Office Visit Dermatology Laura Scherer MD [facility] DR TEJA MARIE-DERMAT [place], [place] [address] (Wo rk) documented as of this encounter Visit Diagnoses Not on filedocumented in this encounter Care Teams Cognos Tm1 Developer Relationship Specialty Start Date End Date Lovely Vicente MD PCP - General 04/16/[address] [place] [address] [address] [place] [address] documented as of this encounter
--- OUTSIDE RECORDS SUMMARY | 2022-02-27 15:19 | XMS_ITS | Encounter Summary ---
:1945 [place] [address] Care Team Providers Name Role Phone Lovely Vicente MD Primary Care Provider Reason for Visit Auth/Cert Specialty Diagnoses / Procedures Referred By Contact Refer red To Contact Diagnoses STEMI (ST elevation myocardial infarction) NSTEMI STEMI Procedures CARDIAC CATHETERIZATION NAYE IPI Referral ID Status Reason Start Date Expiration Date Visits Requ ested Visits Authorized [id number] 1 1 Encounter Details Date Type Department Care Team Description 07/05/2017 Surgery Metal Finisher Jet Guan, CARDIAC CATHETERIZATION [facility] [place] [address] CARDIOLOGY DEPT. [phone] [place], [place] [address] (Wo rk) Social History [...] this encounter Discharge Summaries Martha Teague S, JEWELRY CUTTER - 07/14/2017 9:38 AM EST Inpatient - Discharge Summary Patient Name: Gregory Hoang Patient Age: 72 y.o. Birthdate: 1945 Language: Norwegian Race: White Ethnicity: Not nor Admit Date: [...] , @ 1:20p Patient to follow-up with Baseboard Heating Installer/heart failure team in one week. An appointment will be made for you. You may call [phone] Patient to follow-up with Cardiac Surgery, Dr. Yuan Webber, in ~ 4 weeks with CXR, EKG. Inpatient Provider Contact Information: [facility] Section of Cardiac Surgery [facility] [place] [facility] [address] FAX [phone] Discharge Diagnoses (Hospital Problems) Primary Diagnoses: CAD [...] SETUP performed by Manny Mcknight MD at [facility] OR ??? PRO CABG, ARTERIAL, SINGLE N/A 07/07/2017 @CABG, USING ARTERIAL GRAFT;SINGLE ARTERIAL GRAFT (WRVU 33.75) performed by Yuan Webber MD at [facility] OR ??? PRO CABG, ARTERY-VEIN, TWO N/A 07/07/2017 @CABG, TWO VENOUS GRAFTS & ARTERIAL GRAFT (WRVU 7.93) performed by Yuan Webber MD at [facility] OR ??? PRO COLONOSCOPY, REMV LESN, SNARE 01/16/2014 COLONOSCOPY, POLYPECTOMY, REMOVAL LESION BY SNARE performed by Nohemi Jaimes MD at [facility] ENDOSCOPY ??? PRO ENDOSCOPY W/VIDEO-ASST VEIN HARVEST, CABG Right 07/07/2017 ENDOSCOPIC HARVEST VEIN(S) FOR CABG (WRVU 0.31) performed by Yuan Webber MD at [facility] OR ??? PRO THYROIDECTOMY 03/28/2013 THYROIDECTOMY, TOTAL OR COMPLETE performed by Manny Mcknight MD at [facility] OR Prior To Admission Medications Prescriptions Prior to Admission Medication Sig Dispense Refill Last Dose ??? levothyroxine (SYNTHROID) 175 mcg Tablet Take 1 tablet by mouth daily. 90 tablet 3 07/05/2017 [id number] ??? ascorbic acid, vitamin C, (VITAMIN C) [...] Hospital Course: Gregory Hoang was admitted to [facility] on 07/05/2017 via the Cardiology Service. During his hospital course, he was taken emergently to the wheelabrator operator for an ongoing STEMI. An IABP was [...] not take or discontinue any prescription or lolm-omw-ljnjxtz medications without asking your doctor or pharmacist [...] day to have your insulin doses adjusted. [facility] [place] Discharge [...] Yuan Webber and/or the Cardiac Surgery Physician Survey Workers Supervisor Team may be reached at . Weight: [...] Dr. Yuan Webber. You may use a [place] Track or treadmill but avoid any pulling [...] friends, go to a movie, go to restorationist, etc. Heavy activities: No hunting, skiing, jogging, snow shoveling, snowmobiling, lawn mowing, swimming, golf or tennis until after your return appointment with the surgeon. Do not ride motorcycles, [employer] tractors or horses. Avoid the use of [...] should resume a low fat, low cholesterol, [place] Heart Association Diet/Diabetic diet. Driving: No driving [...] , @ 1:20p Patient to follow-up with Baseboard Heating Installer/heart failure team in one week. Appointment will be made for you. You may call [phone] Patient to follow-up with Cardiac Surgery, Dr. Yuan Webber, in ~ 4 weeks with CXR, EKG. Cardiac Rehabilitation: Gregory Hoang was seen today regarding participation in the outpatient Phase 2 Cardiac Rehabilitation at [facility]. The patient agrees to a referral to this program. The referral will be sent at discharge and the patient should be contacted by the Program within 1- 2 weeks from discharge. ?? Future Appointments and Orders Future Appointments Provider Department Dept Phone 09/07/2017 3:00 PM LAB, THREE L Lab 3L [facility] [phone] 09/07/2017 4:00 PM Luz Prescott MD Endocrinology at [place] [phone] Future Orders Complete By Expires EKG 12 Lead [EKG1 Custom] 08/14/2017 02/13/2018 Process Instructions: Scheduling Instructions: Questions: Which DH location will this be performed?: [place] Is a rhythm strip needed?: No If EKG Reason is Pre-op Evaluation, indicate diagnosis for surgery.: XR Chest PA & Lateral (Generic) [[id number] Custom] 08/14/2017 02/13/2018 Process Instructions: Scheduling Instructions: Questions: Where will study be performed?: [place] [facility] Portable exam?: Reason for exam and clinical history: CABG x 3 Other pertinent information: Stat read required?: Date of injury if applicable: Requested Time: Referral to Cardiac Rehab [OQW059 Custom] As directed Process Instructions: If no progress note charted, please enter Clinical details in comments. Scheduling Instructions: Questions: My question or request is: s/p CABG. Cardiac rehab at [facility] Referral to Home Health - at DISCHARGE [DYG1461 CPT(R)] As directed Process Instructions: Scheduling Instructions: Comments: DOCUMENTATION FOR VNA SERVICES (INCLUDING THOSE PATIENTS WITH MEDICARE COVERAGE REQUIRING HOME VNA SERVICES AND/OR HOSPICE SERVICES) PATIENT'S LOCATION: Gregory Hoang [address] [place] [address] [place] [address] (home) Telephone Information: Event Executive's Name: self In discussion with the attending physician, it is certified that this patient is under their care and that they, or a Nurse Practitioner, or Physician Survey Workers Supervisor who is working directly with them, had [...] HEALTH AGENCY: [facility] ([facility] [place] [facility] in [place]) PHONE: [phone] FAX: [phone] RN orders: Cardiopulmonary assessment, incisional assessment, assess vital signs, assessment of rehab progress, medication management and effectiveness, home safety evaluation. Please draw INR if indicated and send result to:Dr Vicente [phone] PT ORDERS: Continue rehab for endurance, gait stability and strength with mobility and transfers. Home safety evaluation. Home exercise program if appropriate. Start of Care Date:24-48 hours after discharge SPECIAL INSTRUCTIONS: For any follow up questions, needs, or issues please call the Cardiac Surgery Office at [phone] FOR MEDICARE ONLY: (please delete this section [...] OR AFTER 07/17/2017 Signed: Martha Teague APRN [facility] Section of Cardiac Surgery [facility] [place] [facility] [address] FAX [phone] Date: 07/14/2017 CC: MD Ivania Cr Betsy, PA [address] [place] [phone] documented in this encounter Discharge Instructions Discharge [...] day to have your insulin doses adjusted. [facility] [place] Patient [...] not take or discontinue any prescription or uovs-jnm-yvlbtox medications without asking your doctor or pharmacist [...] day to have your insulin doses adjusted. [facility] [place]ocrine [place] ? [...] Yuan Webber and/or the Cardiac Surgery Physician Survey Workers Supervisor Team may be reached at . ?? [...] Dr. Yuan Webber. You may use a [place] Track or treadmill but avoid any pulling [...] friends, go to a movie, go to restorationist, etc. ?? Heavy activities: No hunting, skiing, jogging, snow shoveling, snowmobiling, lawn mowing, swimming, golf or tennis until after your return appointment with the surgeon. Do not ride motorcycles, [employer] tractors or horses. Avoid the use of [...] should resume a low fat, low cholesterol, [place] Heart Association Diet/Diabetic diet. ?? Driving: No [...] @ 1:20p ?? Patient to follow-up with Baseboard Heating Installer/heart failure team in one week. An appointment has been made for you, you can call [phone] ?? Patient to follow-up with Cardiac Surgery, Dr. Yuan Webber, in ~ 4 weeks with CXR, EKG. ? Cardiac Rehabilitation: Gregory Hoang??was seen today regarding participation in the outpatient Phase 2 Cardiac Rehabilitation at [facility]. ?? The patient agrees to a referral to this program.? The referral will be sent at discharge and the patient should be contacted by the Program within 1- 2 weeks from discharge. ? Future Appointments and Orders Future Appointments Provider Department Dept Phone ?? 09/07/2017 3:00 PM LAB, THREE L Lab 3L [facility] [phone] ?? 09/07/2017 4:00 PM Luz Prescott MD Endocrinology at [place] [phone] Future Orders Complete By Expires ?? EKG 12 Lead [EKG1 Custom] 08/14/2017 02/13/2018 ?? Process Instructions: ? Scheduling Instructions: ? Questions: ? Which location will this be performed?: [place] ?? Is a rhythm strip needed?: No ?? If EKG Reason is Pre-op Evaluation, indicate diagnosis for surgery.: ?? XR Chest PA & Lateral (Generic) [[id number] Custom] 08/14/2017 02/13/2018 ?? Process Instructions: ? Scheduling Instructions: ? Questions: ? Where will study be performed?: [place] [facility] ?? Portable exam?: ?? Reason for exam and clinical history: CABG x 3 ?? Other pertinent information: ?? Stat read required?: ?? Date of injury if applicable: ?? Requested Time: ?? Referral to Cardiac Rehab [KPL076 Custom] As directed ? Process Instructions: ?? If no progress note charted, please enter Clinical details in comments. ?? Scheduling Instructions: ? Questions: ? My question or request is: s/p CABG. Cardiac rehab at [facility] ? Arrangements for VNA/home [...] RN - 07/14/2017 2:34 PM EST The patient/patient services representative has been provided a list of Home Health Agencies/DME vendors which serve their preferred geographic area. A letter describing our affiliations was reviewed with them and theywere educated about their right to choose where referrals are placed. Patient requests referral to [facility] [employer]. PHONE: [phone] FAX: [phone] Expected date of discharge: 07/14 Referral routed to the Crab Catcher for matching with agency/vendor and to provide [...] day to have your insulin doses adjusted. [facility] [place] Kathie Carrera APRN [facility] Endocrinology Diabetes Management Pager [phone] 20 minutes of this 35 minute visit was spent with the patient in counseling on diabetes and treatment plan, reviewing all glucose and insulin data as well as relevant laboratory results with the patient, and coordination of care on the inpatient unit including nursing and primary team. Zulma Andres RN - 07/14/2017 10:30 AM EST The patient/patient services representative has been provided a list of Home Health Agencies/DME vendors which serve their preferred geographic area. A letter describing our affiliations was reviewed with them and theywere educated about their right to choose where referrals are placed. Patient requests referral to : [facility] ([facility] [place] [facility]-is in [place]) PHONE: [phone] FAX: [phone]. Expected date of discharge: 07/14/17 Referral routed to the Crab Catcher for matching with agency/vendor and to provide [...] hours. If BG remains greater than 240, mmenkx19 units (no more than three times) &??call [...] #6 s/p CABG X3. FSBG 80 at [place], reports no symptoms but did drink some [...] Will continue to follow Katerin Azul APRN [facility] [place]ocr[place] Diabetes Management Pager [phone] 15 minutes of this 25 minute visit [...] of infiltration/extravasation Discussed plan of care with HEAT TREAT SUPERVISOR and RN. Elevate exrtemity and apply intermittent Warm compresses. Name of MD contacted Dr. Shaw Brown 07/13/2017 @ 0655 Name of RN contacted Ale Rangel RN Name of Pharmacist if consulted NA Name of Plastics MD ( if consulted) NA (Mandatory photo for infiltrations/ extravasations scoring a stage 2 or greater, but recommended forstage 1)( include measuring tape and identifier in the photo) ESE TEACHER CARING FOR THIS PATIENT WILL CONTINUE [...] measuring tape and identifier in the photo) ESE TEACHER CARING FOR THIS PATIENT WILL CONTINUE [...] regard to both infiltrates addressed by this freelance copywriter.All of Mr. Hoang's responses were entirely appropriate. Images of infiltrates attached here. Martha Sharp APRN - 07/13/2017 8:01 AM EST Cardiac Surgery Progress Note: ID: [id number] 72 year old male POD#6 s/p CABGx3 [...] discharge. ?? I have met with the patient/patient services representative to discuss discharge planning needs. I have provided the [facility], Office of Care Management letter from the Information Specialist pertaining to rehab referrals. I have also provided a letter describing our affiliations within the [facility] and educated them about their right to choose where referrals are placed. ?? I reviewed the different levels of rehab including SNF, swing, acute and LTAC with the patient/patient services representative. ?? The patient/patient services representative has been provided a list of facilities within their preferred geographic area. ?? I have requested that the patient/patient services representative provide at least three choices for referral. ?? The patient/patient services representative have requested referrals to: ?? 1. . ?? 2. [facility] ?? 3. More to be entered ?? Expected date of discharge: 07/14 Note routed to Crab Catcher who will communicate referrals to facilities and [...] hours. If BG remains greater than 240, dayhti04 units (no more than three times) & call for new basal insulin orders. ??If less than 240 after two hours, give no insulin and resume prior schedule. Will continue to follow Katerin Azul APRN [facility] [place]ocr[place] Diabetes Management Pager [phone] 20 minutes of this 35 minute visit was spent with the patient in counseling on diabetes and treatment plan, reviewing all glucose and insulin data as well as relevant laboratory results with the patient, and coordination of care on the inpatient unit including nursing and primary team. Makayla Stevenson APRN - 07/12/2017 9:52 AM EST Cardiac Surgery Progress Note: ID: [id number] 72 year old male POD#5 s/p CABGx3 [...] PM EST Patient arrived from [facility]. VSS. MSI dressing pulled off [...] hours. If BG remains greater than 240, tahhtx37 units (no more than three times) & [...] AM EST Cardiac Surgery Progress Note: ID: [id number] 72 year old male POD#4 s/p CABGx3 [...] hours. If BG remains greater than 240, bcowqq60 units (no more than three times) & [...] AM EST Cardiac Surgery Progress Note: ID: [id number] 72 year old male POD#3 s/p CABGx3 [...] Gas) No results found for: PHART, PO2ART, MWM7OWJ Assessment/Plan: 72 year old male POD#3 s/p [...] Mami Thao - 07/09/2017 6:29 PM EST Front Desk Coordinator Encounter Note Patient Name: Gregory Hoang : [id number] MR#: [id number] Admit Date: 07/05/2017 4:20 PM Hospital Day 4 days Narrative: Patient was sitting in chair, hugging heart pillow, opened his eyes, nodding to come into room Assessment: Patient was sleepy. Intervention and Outcome: Introduced airport engineer services and patient reached his hand out in appreciation. Follow-up: Front Desk Coordinator remains available for support. Time in Direct [...] 07/09/2017 10:45 AM EST Report given to technical staff assistant to cover care Maddison Cee PA - 07/09/2017 9:00 AM EST Cardiac Surgery Progress Note: ID: [id number] 72 year old male POD#2 s/p CABGx3 [...] Attending Surgeon on rounds. Signed: STEPHANIE [facility] Section of Cardiac Surgery Date: [...] when IABP d/c'ed. Gretchen Carolina, PT Pager [phone] Maddison Cee PA - 07/08/2017 11:27 AM EST Cardiac Surgery Progress Note: ID: [id number] 72 year old male POD#1 s/p CABGx3 [...] Attending Surgeon on rounds. Signed: STEPHANIE [facility] Section of Cardiac Surgery Date: [...] in place in R femoral. No hematoma. INFORMATICS EDUCATOR- Intact Psych- Anxious Skin- Dry, no peripheral [...] intact. IABP in place in R femoral. INFORMATICS EDUCATOR- Intact Psych- Anxious Skin- Dry, no peripheral [...] note for details. DAPHNE SHAHID MD Pager [phone] Jet Mckenna MD - 07/05/2017 6:48 PM EST Preliminary Cardiac Catheterization Procedure Note: Procedure(s) performed: Left heart cath, IABP insertion Access: Right TOY CONSULTANT-->8fr IABP A time-out was conducted prior to [...] effect. Heparin gtt maintained. Pt transferred to wheelabrator operator. documented in this encounter H&P Notes Daphne Shahid MD - 07/05/2017 6:08 PM EST CARDIOLOGY HISTORY & PHYSICAL EXAM Date of Admission: 07/05/2017 ( Hospital Day 0 days ) Responsible Attending: Daphne Shahid MD PCP: Lovely Vicente MD PCP#: [phone] Patient Active Problem List Diagnosis Code ??? [...] heparin drip and transferred to [facility]. While there, continued sob, question of chest pain. Stat TTE showing WMA diffusely and EF around 20%. No significant valvular disease. Taken to the wheelabrator operator urgently for ongoing STEMI. [facility] Labs: INR 1.0 WBC [...] monitor I/O - s/p lasix in the wheelabrator operator, redose to aim net neg 1L by [...] Medicine, PGY-2 Cardiology S1, Team Pager # [phone] CARDIOLOGY ATTENDING NOTE Patient: Gregory Hoang Date [...] amenable for PCI. DAPHNE SHAHID MD Pager [phone] documented in this encounter Miscellaneous Notes Consult Note - Daphne Shahid MD - 07/14/2017 11:46 AM EST Heart Failure Service Inpatient Consult Note Gregory Hoang Date of : 1945 Age: 72 y.o. Today's date: 07/14/17 PCP: Lovely Vicente MD REMEDIAL MASSEUR: None Place of Service: [facility] Reason for Consult: Dr. Webber has requested [...] SETUP performed by Manny Mcknight MD at [facility] OR ??? PRO CABG, ARTERIAL, SINGLE N/A 07/07/2017 @CABG, USING ARTERIAL GRAFT;SINGLE ARTERIAL GRAFT (WRVU 33.75) performed by Yuan Webber MD at [facility] OR ??? PRO CABG, ARTERY-VEIN, TWO N/A 07/07/2017 @CABG, TWO VENOUS GRAFTS & ARTERIAL GRAFT (WRVU 7.93) performed by Yuan Webber MD at [facility] OR ??? PRO COLONOSCOPY, REMV LESN, SNARE 01/16/2014 COLONOSCOPY, POLYPECTOMY, REMOVAL LESION BY SNARE performed by Nohemi Jaimes MD at [facility] ENDOSCOPY ??? PRO ENDOSCOPY W/VIDEO-ASST VEIN HARVEST, CABG Right 07/07/2017 ENDOSCOPIC HARVEST VEIN(S) FOR CABG (WRVU 0.31) performed by Yuan Webber MD at [facility] OR ??? PRO THYROIDECTOMY 03/28/2013 THYROIDECTOMY, TOTAL OR COMPLETE performed by Manny Mcknight MD at [facility] OR Outpt Meds: Current Outpatient Prescriptions [...] following studies: EKG 07/14/17: NSR 75 bpm, LEADITE MAN anterior infarct, LAD CXR 07/11/17: FINDINGS: Sternotomy wires. The patient has been extubated, left chest tube removed, and Reading-Suzi catheter removed since the 07/07/2017 study. Atelectasis [...] was discussed with Zehra. Jaden Kelley MD Data Storage Specialist Pager [phone] CARDIOLOGY ATTENDING NOTE Patient: rGegory Hoang Date of Service: 07/14/2017 Date of [...] heart failure clinic. DAPHNE SHAHID MD Pager [phone] Plan of Care - Alden Chavarria PTA [...] home with assist Alden Chavarria PTA Pager: [phone] Inpatient Physical Therapy Problem: Acute Rehab Services [...] sit/sit to supine -- Bed Mobility Goal, Harrison Level supervision required -- Bed Mobility Goal, [...] - 3 days -- Gait Training Goal, Harrison Level supervision required -- Gait Training Goal, [...] days -- Transfer Training Goal, Activity Type ile-mp-eaqmw/vrrpv-ua-mvc;qhk-jz-yvjuk/wzrtl-ot-jfx;toilet -- Transfer Train Goal, Harrison Level supervision required -- Transfer Training Goal, [...] keeping present for 2 days per family. Pullman Car Repairer noted of frustrations, house keeping sent to room. Patient offered showered twice, refused. at bedside, frustrated that shower not complete, informed that patient had refused several times. requesting to see SUPERVISOR GRAPHITE, paged sent to Martha, will come to bedside (middle of consult). not willing to wait, Martha notified that family had gone home. Encouraged to come for morning rounds a t 8am. Diabetes team at bedside - insulin adjustments made. Call cabello in reach. Continue to monitor. PLAN MOVING FORWARD: Ambulate, dressing changes BID, Please change drsg at 4am per Martha SUPERVISOR GRAPHITE request. INDIVIDUALIZED FALL PREVENTION INTERVENTIONS: Patient-specific fall [...] levels on the lower side, 60ml of Stanton juice given after a FS of 80. [...] 07/13/17 0502 Interdisciplinary Rounds/Family Conf Participants case repairer;dietitian/nutrition services;nursing;occupational therapy;patient;pharmacy;physical therapy;physician Plan of Care - [...] monitoring required during toileting and ADLs]: RN HEAT TREAT SUPERVISOR Surveillance [continuous indirect monitoring]: Barrett Monitor CPG [...] Anticipated Discharge Disposition: home with assist Pager: [phone] CLARISSA SEGAL, PT 07/12/2017 Physical Therapy Rehabilitation [...] to sit/sit to supine Bed Mobility Goal, Harrison Level supervision required Bed Mobility Goal, Additional Goal adheres to psternal precautions for transfer Goal: Gait Training Goal Stand Alone Therapy Goal Outcome: Ongoing (Interventions Implemented as Appropriate) 07/12/17 1225 Gait Training Goal Gait Training Goal, Date Established 07/12/17 Gait Training Goal, Time to Achieve 2 - 3 days Gait Training Goal, Harrison Level supervision required Gait Training Goal, Assist [...] 3 days Transfer Training Goal, Activity Type oxj-oi-nikdd/kgemt-db-lln;jwu-cn-yrfko/xlala-zp-jdv;toilet Transfer Train Goal, Harrison Level supervision required Transfer Training Goal, Additional Goal adheres to sternal precautions during transfer Consult Note - Octavia Vaughn RN - 07/12/2017 10:50 AM EST [facility] [place] Gregory Hoang was seen today regarding participation in the outpatient Phase 2 Cardiac Rehabilitation at [facility]. The patient agrees to [...] IV site, amio to other piv and PLATE MILL MILL HAND at bedside to help assess, IV removed. [...] staff, he stood and marched in place. [place] weak, wanting to sit back down. Remained [...] Health/Prescription Coverage: Primary Insurance: MEDICARE Secondary Insurance: [place] [place] Prescription Coverage: yes Preferred Pharmacy: [facility] Other: none Primary Care Provider: Lovely Vicente MD [phone] Patient/Caregiver Goals of Treatment:live and get my breath back Potential Needs for Transition of Care: Rehab/SNF: [facility] Home Health: NA DME: TBD Dialysis: na Community Resources: available Transportation: yes Other: none Anticipated Barriers to Discharge/Special Considerations: none Plan: Likely SNF Rehab before home A member of the Care Management team will continue to monitor progress, follow for continuity of care and assist with transition of care planning. ERLIN Weiss Pager: [phone] Consult Note - Katerin Azul RN - [...] to d/c gtt and start CF. terminal supervisor diabetes care: Medications - Outpatient treatment regimen recommendations pending based on the hospital course. Monitoring - continue BG tid ac & hs Diet - low fat/low carb diet Exercise - weight-bearing exercise 30 min/day, as tolerated Thank you for allowing us to provide care for your patient W/E coverage, Dr. Jeane Tatum, pager [phone] Katerin Azul APRN Endocrinology Diabetes Management Pager [phone] Plan of Care - Stephanie Godoy, RN [...] Webber MD - 07/07/2017 6:27 PM EST [facility] [place] Patient Name: Gregory Hoang : [id number] MR#: [id number] Case Date: 07/07/2017 Surgeon: Surgeon(s) and Role: * Yuan Webber MD - Primary * Michael Drake PA - Physician Survey Workers Supervisor * Linda Flores PA - Physician Survey Workers Supervisor Preoperative diagnosis: 3VD Postoperative diagnosis: CAD, severe [...] Operative Note Patient Name: Gregory Hoang : [id number] MR#: [id number] Case Date: 07/07/2017 Surgeon: Surgeon(s) and Role: * Yuan Webber MD - Primary * Michael Drake PA - Physician Survey Workers Supervisor * Linda Flores PA - Physician Survey Workers Supervisor Preoperative diagnosis: 3VD Postoperative diagnosis: CAD, severe [...] (reference Cardiac: ACS (Acute Coronary Syndrome) (Adult) [facility] [place]). 07/07/17621 Cardiac: ACS (Acute Coronary Syndrome) Problems [...] Hahn, MS3 [employer] [employer] [facility] Cardiology S1 (Pager [phone]) Plan of Care - Emelia Ibarra RN [...] [facility] ENDOSCOPY ??? 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 #Home Meds - continue levothyroxine 175mcg - CPAP at night ?? # Routine - DVT PPx: heparin drip - Diet: Healthy heart diet, NPO at midnight for CABG tomorrow - Code Status: FULL - Dispo: CVCC Katty Hahn, M3 [facility] Cardiology S1 (Pager [phone]) Plan of Care - Stephanie Godoy RN - 07/06/2017 5:00 AM EST Problem: Patient Care Overview Goal: Plan of Care Review 07/06/17 2106 Coping/Psychosocial Plan Of Care Reviewed With patient;family [...] in urinal without difficulty. 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 Pt [...] Outcome: Ongoing (Interventions Implemented as Appropriate) 07/06/17 9166 Cardiac: ACS (Acute Coronary Syndrome) Problems Assessed [...] [facility] CARDIOLOGY [place], [place] [address] (Wo rk) 06/10/2022 Office Visit Dermatology Laura Scherer MD [facility] [address]-DERMAT OLOGY [place], [place] [address] (Wo rk) Scheduled Orders Name [...] procedure are i n the results section. BUILDINGS PAINTER SCAN 07/15/2017 12:00 Res ults for this [...] Routine 07/08/2017 4:00 Results f or this [place] [place] AM EST procedure are [...] Routine 07/06/2017 7:40 Results f or this [place] [place] PM EST procedure are [...] Timed 07/06/2017 2:10 Results f or this [place] [place] PM EST procedure are [...] section. TYPE AND SCREEN Routine 07/06/2017 12:00 ([facility] [place] PM EST APTT STAT [...] Routine 07/06/2017 8:10 Results f or this [place] [place] AM EST procedure are [...] Routine 07/06/2017 2:20 Results f or this [place] [place] AM EST procedure are [...] Routine 07/05/2017 8:20 Results f or this [place] [place] PM EST procedure are [...] Timed 07/05/2017 4:55 Results f or this [place] [place] PM EST procedure are [...] EXAMINATION: XR CHEST PA AND LATERAL ([employer]) CLINICAL HISTORY: CABG x 3 TECHNIQUE: PA [...] Teague APRN IMG DX ORDERABLES SCAN DOC: BUILDINGS PAINTER (07/15/2017 12:00 AM EST) Narrative 07/15/2017 12:00 [...] Signature POC Glucose 186 65 - 199 [facility] mg/dL [facility] LABOR[facility]ORY Comment: Supplemental ranges: <140 mg/dL before meals <180 mg/dL all other times of the day Specimen Anatomical Collection Method Collection Time Receive d Time (Source) Location / / Volume Laterality Blood specimen 07/14/2017 11:56 7 (specimen) AM EST 11:56 AM EST Yuan Webber MD POINT OF CARE TEST ORDERABLE S Performing Organization Address City/State/ZIP Code Phon e Number [address] POCT Glucose (07/14/2017 7:52 AM EST) athologist Signature POC Glucose 126 65 - 199 [facility] Comment: Supplemental ranges: <140 mg/dL before meals <180 mg/dL all other times of the day Specimen Anatomical Collection Method Collection Time Receive d Time (Source) Location / / Volume Laterality Blood specimen 07/14/2017 7:52 AM 017 7:52 (specimen) EST AM EST Yuan Webber MD POINT OF CARE TEST ORDERABLE S Performing Organization Address City/State/[place] [address] (ABNORMAL) Prothrombin Time (07/14/2017 4:46 AM EST) athologist Signature PT 26.4 (H) 11.8 - 14.0 [facility] LABORATORY INR 2.4 (H) 0.9 - 1.1 [facility] [...] [place] STACIE HEMATOLOGY ORDERABLES Performing Organization Address City/[facility]/ZIP Code Phon e Number [address] Potassium (07/14/2017 4:46 AM EST) athologist [facility] Potassium 4.3 3.5 - 5.0 [facility] mmol/L [facility] Comment: Please note: [...] [place] STACIE CHEMISTRY ORDERABLES Performing Organization Address City/[facility]/ZIP Code Phon e Number [address] POCT Glucose (07/14/2017 4:34 AM EST) athologist Signature POC Glucose 115 65 - 199 [facility] mg/dL [facility] Comment: Supplemental ranges: <140 mg/dL before meals <180 mg/dL all other times of the day Specimen Anatomical Collection Method Collection Time Receive d Time (Source) Location / / Volume Laterality Blood specimen 07/14/2017 4:34 AM 017 4:34 (specimen) EST AM EST Yuan Webber MD POINT OF CARE TEST ORDERABLE S Performing Organization Address City/State/[place] [address] POCT Glucose (07/13/2017 11:33 PM EST) athologist Signature POC Glucose 132 65 - 199 [place] mg/dL [facility] Comment: Supplemental ranges: <140 mg/dL before meals <180 mg/dL all other times of the day Specimen Anatomical Collection Method Collection Time Receive d Time (Source) Location / / Volume Laterality Blood specimen 07/13/2017 11:33 7 (specimen) PM EST 11:33 PM EST Yuan Webber MD POINT OF CARE TEST ORDERABLE S Performing Organization Address City/State/[place] [address] POCT Glucose (07/13/2017 9:25 PM EST) athologist Signature POC Glucose 121 65 - 199 [facility] [place] mg/dL [facility] Comment: Supplemental ranges: <140 mg/dL before meals <180 mg/dL all other times of the day Specimen Anatomical Collection Method Collection Time Receive d Time (Source) Location / / Volume Laterality Blood specimen 07/13/2017 9:25 PM 017 9:25 (specimen) EST PM EST Yuan Webber MD POINT OF CARE TEST ORDERABLE S Performing Organization Address City/State/ZIP Code Phon e Number [address] POCT Glucose (07/13/2017 4:55 PM EST) athologist Signature POC Glucose 79 65 - 199 [facility] [place] mg/dL [facility] Comment: Supplemental ranges: <140 mg/dL before meals <180 mg/dL all other times of the day Specimen Anatomical Collection Method Collection Time Receive d Time (Source) Location / / Volume Laterality Blood specimen 07/13/2017 4:55 PM 017 4:55 (specimen) EST PM EST Yuan Webber MD POINT OF CARE TEST ORDERABLE S Performing Organization Address City/State/[place] [address] POCT Glucose (07/13/2017 11:16 AM EST) athologist Signature POC Glucose 163 65 - 199 [facility] mg/dL [facility] Comment: Supplemental ranges: [...] City/[facility]/[place] [address] POCT Glucose (07/13/2017 8:07 AM EST) athologist Signature POC Glucose 96 65 - 199 [facility] mg/dL [facility] Comment: Supplemental ranges: <140 mg/dL before meals <180 mg/dL all other times of the day Specimen Anatomical Collection Method Collection Time Receive d Time (Source) Location / / Volume Laterality Blood specimen 07/13/2017 8:07 AM 017 8:07 (specimen) EST AM EST Yuan Webber MD POINT OF CARE TEST ORDERABLE S Performing Organization Address City/State/[place] [address] (ABNORMAL) Prothrombin Time (07/13/2017 4:26 AM EST) P athologist Signature PT 20.8 (H) 11.8 - 14.0 [facility] LABORATORY INR 1.8 (H) 0.9 - 1.1 [facility] [...] Agency Comment Spec In Lab Makayla Wilson JEWELRY CUTTER HEMATOLOGY ORDERABLES Performing Organization Address City/State/[place] [address] (ABNORMAL) Basic Metabolic Panel (non-fasting) (07/13/2017 4:26 AM EST) P athologist Signature Glucose Lvl 95 65 - 199 [facility] mg/dL [facility] Comment: Diabetes: >=200 mg/dL plus symp toms BUN 25 (H) 10 - 20 mg/dL [facility] LABORATORY Creatinine 1.19 0.80 - 1.50 [...] 107 mmol/L [facility] CO2 26 22 - 31 mmol/L [facility] Anion Gap 13 5 - 15 mmol/L [facility] LAB[facility] Calcium 7.7 (L) 8.5 - 10.5 mg/dL [facility] LABORATORY Estimated GFR 60 >=60 [facility] LAB[facility] Comment: The reported eGFR should be multiplied b y 1.2 for patients. The MDRD is not an appropriate measure o f renal function for patients with body mass extremes or in patients with acute kidney failure. [email or web address] [email or web address] Specimen Anatomical Collection Method Collection Time Receive d Time (Source) Location / / Volume Laterality Blood specimen 07/13/2017 4:26 AM 017 4:46 (specimen) EST AM EST Resulting Agency Comment Spec In Lab Makayla Wilson APRN CHEMISTRY ORDERABLES Performing Organization Address City/State/ZIP Code Phon e Number [address] POCT Glucose (07/13/2017 3:52 AM EST) athologist Signature POC Glucose 93 65 - 199 [place] mg/dL [facility] Comment: Supplemental ranges: <140 mg/dL before meals <180 mg/dL all other times of the day Specimen Anatomical Collection Method Collection Time Receive d Time (Source) Location / / Volume Laterality Blood specimen 07/13/2017 3:52 AM 017 3:52 (specimen) EST AM EST Yuan Webber MD POINT OF CARE TEST ORDERABLE S Performing Organization Address City/State/ZIP Code Phon e Number [address] POCT Glucose (07/13/2017 12:21 AM EST) athologist Signature POC Glucose 80 65 - 199 [place] mg/dL [facility] Comment: Supplemental ranges: [...] City/[facility]/ZIP Code Phon e Number [address] POCT Glucose (07/12/2017 8:22 PM EST) athologist Signature POC Glucose 119 65 - 199 [place] mg/dL [facility] Comment: Supplemental ranges: <140 mg/dL before meals <180 mg/dL all other times of the day Specimen Anatomical Collection Method Collection Time Receive d Time (Source) Location / / Volume Laterality Blood specimen 07/12/2017 8:22 PM 017 8:22 (specimen) EST PM EST Yuan Webber MD POINT OF CARE TEST ORDERABLE S Performing Organization Address City/State/[place] [address] POCT Glucose (07/12/2017 4:02 PM EST) athologist Signature POC Glucose 114 65 - 199 [place] mg/dL [facility] Comment: Supplemental ranges: <140 mg/dL before meals <180 mg/dL all other times of the day Specimen Anatomical Collection Method Collection Time Receive d Time (Source) Location / / Volume Laterality Blood specimen 07/12/2017 4:02 PM 017 4:02 (specimen) EST PM EST Yuan Webber MD POINT OF CARE TEST ORDERABLE S Performing Organization Address City/State/[place] [address] POCT Glucose (07/12/2017 11:28 AM EST) athologist Signature POC Glucose 164 65 - 199 [place] mg/dL [facility] Comment: Supplemental ranges: <140 mg/dL before meals <180 mg/dL all other times of the day Specimen Anatomical Collection Method Collection Time Receive d Time (Source) Location / / Volume Laterality Blood specimen 07/12/2017 11:28 7 (specimen) AM EST 11:28 AM EST Yuan Webber MD POINT OF CARE TEST ORDERABLE S Performing Organization Address City/State/[place] [address] POCT Glucose (07/12/2017 7:34 AM EST) athologist Signature POC Glucose 109 65 - 199 [place] mg/dL [facility] Comment: Supplemental ranges: <140 mg/dL before meals <180 mg/dL all other times of the day Specimen Anatomical Collection Method Collection Time Receive d Time (Source) Location / / Volume Laterality Blood specimen 07/12/2017 7:34 AM 017 7:34 (specimen) EST AM EST Yuan Webber MD POINT OF CARE TEST ORDERABLE S Performing Organization Address City/State/[place] [address] (ABNORMAL) Basic Metabolic Panel (non-fasting) (07/12/2017 4:11 AM EST) athologist Signature Glucose Lvl 92 65 - 199 [facility] mg/dL [facility] Comment: Diabetes: >=200 mg/dL plus symp toms BUN 31 (H) 10 - 20 mg/dL [facility] Creatinine 1.23 0.80 - 1.50 [...] estions. Chloride 106 98 - 107 mmol/L [facility] CO2 Not Perf 22 - 31 mmol/L [facility] Comment: Add-on request. Sample too old to perform test. Anion Gap Not Calculated 5 - 15 mmol/L [facility] LABOR[facility] Calcium 8.1 (L) 8.5 - 10.5 mg/dL [facility] LABOR[facility]ORY Estimated GFR 58 (L) >=60 [facility] Comment: The reported eGFR should be multiplied b y 1.2 for patients. The MDRD is not an appropriate measure o f renal function for patients with body mass extremes or in patients with acute kidney failure. [email or web address] [email or web address] Specimen Anatomical Collection Method Collection Time Receive d Time (Source) Location / / Volume Laterality Blood specimen 07/12/2017 4:11 AM 017 8:57 (specimen) EST AM EST Resulting Agency Comment Spec In Lab [facility] ORDERABLES Performing Organization Address [facility] [place] [address] (ABNORMAL) Prothrombin Time (07/12/2017 4:11 AM EST) athologist Signature PT 15.4 (H) 11.8 - 14.0 [facility] LABORATORY INR 1.2 (H) 0.9 - 1.1 [facility] [...] Resulting Agency Comment Spec In Lab Makayla [facility] HEMATOLOGY ORDERABLES Performing Organization Address City/[facility] [place] [address] Potassium (07/12/2017 4:11 AM EST) athologist Signature Potassium 3.8 3.5 - 5.0 [facility] mmol/L [facility] Comment: Please note: [...] Address City/State/ZIP Code Phon e Number [address] POCT Glucose (07/12/2017 4:10 AM EST) athologist Signature POC Glucose 90 65 - 199 [facility] [place] mg/dL [facility] Comment: Supplemental ranges: [...] City/[facility]/ZIP Code Phon e Number [address] POCT Glucose (07/11/2017 11:57 PM EST) athologist Signature POC Glucose 98 65 - 199 [facility] [place] mg/dL [facility] Comment: Supplemental ranges: [...] City/[facility]/[place] [address] POCT Glucose (07/11/2017 8:32 PM EST) athologist Signature POC Glucose 146 65 - 199 [facility] [place] mg/dL [facility] Comment: Supplemental ranges: [...] e Number [facility] [id number] [facility] [address] XR Chest PA & [...] e xtubated, left chest tube removed, and Reading-Suzi catheter removed since the study. Atelectasis at [...] e xtubated, left chest tube removed, and Reading-Suzi catheter removed since the study. Atelectasis at [...] (H) 65 - 199 [place] mg/dL [facility] Comment: Supplemental ranges: <140 mg/dL before meals <180 mg/dL all other times of the day Specimen Anatomical Collection Method Collection Time Receive d Time (Source) Location / / Volume Laterality Blood specimen 07/11/2017 4:05 PM 017 4:05 (specimen) EST PM EST Yuan Webber MD POINT OF CARE TEST ORDERABLE S Performing Organization Address City/State/ZIP Code Phon e Number [address] POCT Glucose (07/11/2017 11:55 AM EST) athologist Signature POC Glucose 176 65 - 199 [place] mg/dL [facility] Comment: Supplemental ranges: <140 mg/dL before meals <180 mg/dL all other times of the day Specimen Anatomical Collection Method Collection Time Receive d Time (Source) Location / / Volume Laterality Blood specimen 07/11/2017 11:55 7 (specimen) AM EST 11:55 AM EST Yuan Webber MD POINT OF CARE TEST ORDERABLE S Performing Organization Address City/State/ZIP Code Phon e Number [address] POCT Glucose (07/11/2017 7:53 AM EST) athologist Signature POC Glucose 189 65 - 199 [place] mg/dL [facility] Comment: Supplemental ranges: <140 mg/dL before meals <180 mg/dL all other times of the day Specimen Anatomical Collection Method Collection Time Receive d Time (Source) Location / / Volume Laterality Blood specimen 07/11/2017 7:53 AM 017 7:53 (specimen) EST AM EST Yuan Webber MD POINT OF CARE TEST ORDERABLE S Performing Organization Address City/State/ZIP Code Phon e Number [address] POCT Glucose (07/11/2017 4:22 AM EST) athologist Signature POC Glucose 151 65 - 199 [place] mg/dL [facility] Comment: Supplemental ranges: [...] City/[facility]/[place] [address] Potassium (07/11/2017 2:20 AM EST) P athologist Signature Potassium 4.5 3.5 - 5.0 [facility] mmol/L [facility] Comment: Please note: [...] Webber MD CHEMISTRY ORDERABLES Performing Organization Address City/[facility]/[place] [address] POCT Glucose (07/11/2017 12:17 AM EST) athologist Signature POC Glucose 162 65 - 199 [facility] mg/dL [facility] Comment: Supplemental ranges: [...] City/[facility]/[place] [address] POCT Glucose (07/10/2017 8:47 PM EST) athologist Signature POC Glucose 191 65 - 199 [place] mg/dL [facility] Comment: Supplemental ranges: <140 mg/dL before meals <180 mg/dL all other times of the day Specimen Anatomical Collection Method Collection Time Receive d Time (Source) Location / / Volume Laterality Blood specimen 07/10/2017 8:47 PM 017 8:47 (specimen) EST PM EST Yuan Webber MD POINT OF CARE TEST ORDERABLE S Performing Organization Address City/State/ZIP Code Phon e Number [address] POCT Glucose (07/10/2017 4:06 PM EST) athologist Signature POC Glucose 131 65 - 199 [facility] mg/dL [facility] Comment: Supplemental ranges: <140 mg/dL before meals <180 mg/dL all other times of the day Specimen Anatomical Collection Method Collection Time Receive d Time (Source) Location / / Volume Laterality Blood specimen 07/10/2017 4:06 PM 017 4:06 (specimen) EST PM EST Yuan Webber MD POINT OF CARE TEST ORDERABLE S Performing Organization Address City/State/ZIP Code Phon e Number [address] POCT Glucose (07/10/2017 3:08 PM EST) athologist Signature POC Glucose 151 65 - 199 [facility] mg/dL [facility] Comment: Supplemental ranges: <140 mg/dL before meals <180 mg/dL all other times of the day Specimen Anatomical Collection Method Collection Time Receive d Time (Source) Location / / Volume Laterality Blood specimen 07/10/2017 3:08 PM 017 3:08 (specimen) EST PM EST Yuan Webber MD POINT OF CARE TEST ORDERABLE S Performing Organization Address City/State/ZIP Code Phon e Number [address] POCT Glucose (07/10/2017 2:25 PM EST) P athologist Signature POC Glucose 146 65 - 199 [place] mg/dL [facility] Comment: Supplemental ranges: <140 mg/dL before meals <180 mg/dL all other times of the day Specimen Anatomical Collection Method Collection Time Receive d Time (Source) Location / / Volume Laterality Blood specimen 07/10/2017 2:25 PM 017 2:25 (specimen) EST PM EST Yuan Webber MD POINT OF CARE TEST ORDERABLE S Performing Organization Address City/State/ZIP Code Phon e Number [address] POCT Glucose (07/10/2017 1:23 PM EST) athologist Signature POC Glucose 166 65 - 199 [place] mg/dL [facility] Comment: Supplemental ranges: <140 mg/dL before meals <180 mg/dL all other times of the day Specimen Anatomical Collection Method Collection Time Receive d Time (Source) Location / / Volume Laterality Blood specimen 07/10/2017 1:23 PM 017 1:23 (specimen) EST PM EST Yuan Webber MD POINT OF CARE TEST ORDERABLE S Performing Organization Address City/State/[place] [address] POCT Glucose (07/10/2017 11:52 AM EST) athologist Signature POC Glucose 157 65 - 199 [place] mg/dL [facility] Comment: Supplemental ranges: <140 mg/dL before meals <180 mg/dL all other times of the day Specimen Anatomical Collection Method Collection Time Receive d Time (Source) Location / / Volume Laterality Blood specimen 07/10/2017 11:52 7 (specimen) AM EST 11:52 AM EST Yuan Webber MD POINT OF CARE TEST ORDERABLE S Performing Organization Address City/State/ZIP Code Phon e Number [address] POCT Glucose (07/10/2017 11:01 AM EST) athologist Signature POC Glucose 158 65 - 199 [place]AL[place] RYAN mg/dL [facility] LABORATORY Comment: Supplemental ranges: <140 mg/dL before meals <180 mg/dL all other times of the day Specimen Anatomical Collection Method Collection Time Receive d Time (Source) Location / / Volume Laterality Blood specimen 07/10/2017 11:01 7 (specimen) AM EST 11:01 AM EST Yuan Webber MD POINT OF CARE TEST ORDERABLE S Performing Organization Address City/State/[place] [address] POCT Glucose (07/10/2017 9:54 AM EST) P athologist Signature POC Glucose 160 65 - 199 [place] mg/dL [facility] LABORATORY Comment: Supplemental ranges: <140 mg/dL before meals <180 mg/dL all other times of the day Specimen Anatomical Collection Method Collection Time Receive d Time (Source) Location / / Volume Laterality Blood specimen 07/10/2017 9:54 AM 017 9:54 (specimen) EST AM EST Yuan Webber MD POINT OF CARE TEST ORDERABLE S Performing Organization Address City/State/[place] [address] POCT Glucose (07/10/2017 8:58 AM EST) P athologist Signature POC Glucose 183 65 - 199 [place] mg/dL [facility] LABORATORY Comment: Supplemental ranges: <140 mg/dL before meals <180 mg/dL all other times of the day Specimen Anatomical Collection Method Collection Time Receive d Time (Source) Location / / Volume Laterality Blood specimen 07/10/2017 8:58 AM 017 8:58 (specimen) EST AM EST Yuan Webber MD POINT OF CARE TEST ORDERABLE S Performing Organization Address City/State/[place] [address] POCT Glucose (07/10/2017 8:01 AM EST) P athologist Signature POC Glucose 173 65 - 199 [place] RYAN mg/dL [facility] LABORATORY Comment: Supplemental ranges: [...] City/[facility]/ZIP Code Phon e Number [address] POCT Glucose (07/10/2017 7:05 AM EST) athologist Signature POC Glucose 166 65 - 199 [facility] LABORATORY Comment: Supplemental ranges: [...] City/[facility]/ZIP Code Phon e Number [address] POCT Glucose (07/10/2017 6:00 AM EST) athologist Signature POC Glucose 162 65 - 199 [facility] LABORATORY Comment: Supplemental ranges: <140 mg/dL before meals <180 mg/dL all other times of the day Specimen Anatomical Collection Method Collection Time Receive d Time (Source) Location / / Volume Laterality Blood specimen 07/10/2017 6:00 AM 017 6:00 (specimen) EST AM EST Yuan Webber MD POINT OF CARE TEST ORDERABLE S Performing Organization Address City/State/ZIP Code Phon e Number [address] (ABNORMAL) Differential, Automated (07/10/2017 4:28 AM EST) [facility] gist Method Time Signature Neutrophils % 87.9 % [facility] LABORATORY Neutr Abs (ANC) 10.70 (H) 1.70 - [facility] 6.[address] [facility] x10(3)/[facility] L LABORATORY Lymphocytes % 3.9 % [facility] LABORATORY Lymphocytes Abs 0.5 (L) 0.9 - 3.2 [facility] x10(3)/[facility] LABORATORY Monocytes % 7.0 % [facility] LABORATORY Monocyte Abs 0.8 0.3 - 0.9 [facility] x10(3)/[facility] LABORATORY Eosinophils % 0.3 % [facility] LABORATORY Eosinophils Abs 0.0 0.0 - 0.4 [facility] x10(3)/[facility] LABORATORY Basophils % 0.2 % [facility] LABORATORY Basophils Abs 0.0 0.0 - 0.1 [facility] x10(3)/[facility] LABORATORY Immature Gran % 0.70 % ST [...] Gran Abs 0.08 (H) 0.00 - 0.04 x10(3)/[facility] LABORATORY Specimen Anatomical Collection Method Collection Time Receive d Time (Source) Location / / Volume Laterality Blood specimen 07/10/2017 4:28 AM 017 4:36 (specimen) EST AM EST Resulting Agency Comment Spec In Lab Yuan Webber MD HEMATOLOGY ORDERABLES Performing Organization Address City/State/[place] [address] (ABNORMAL) Hemogram (07/10/2017 4:28 AM EST) Analysis Performed At Patho logist Time Signature WBC 12.2 (H) 4.0 - 9.5 [facility] x10(3)/[facility] LABORATORY RBC 3.31 (L) 4.58 - [facility] 5.[address] [facility] x10(6)/[facility] LABORATORY Hemoglobin 9.8 (L) 13.7 - [place] RYAN 16.5 gm/dL [facility] LABORATORY Hematocrit 30.0 (L) 40.5 - [place]INA DAVIS 48.5 % [facility] LABORATORY MCV 90.6 82.9 - [place] RYAN 93.1 [facility] LABORATORY MCH 29.6 27.5 - [place] OLIVASCK 32.1 pg [facility] LABORATORY MCHC 32.7 32.0 - [place] OLIVASCK 35.7 gm/dL [facility] LABORATORY Platelets 135 (L) 145 - 357 [facility] x10(3)/[facility] LABORATORY RDWSD 50.8 (H) 36.0 - [place] RYAN 45.0 [facility] LABORATORY RDWCV 15.4 (H) 11.4 - [facility] 13.8 % [facility] LABORATORY MPV 10.0 7.6 - 12.9 [facility] LABORATORY nRBC % Auto 0.0 % [facility] LABORATORY nRBC Abs Auto 0.000 0.000 - [place] RYAN 0.[address] [facility] x10(3)/[facility] LABORATORY Specimen Anatomical Collection Method Collection Time Receive d Time (Source) Location / / Volume Laterality Blood specimen 07/10/2017 4:28 AM 017 4:36 (specimen) EST AM EST Resulting Agency Comment Spec In Lab Yuan Webber MD HEMATOLOGY ORDERABLES Performing Organization Address City/State/[place] [address] (ABNORMAL) Basic Metabolic Panel (non-fasting) (07/10/2017 4:28 AM EST) P athologist Signature Glucose Lvl 178 65 - 199 [facility] mg/dL [facility] LABORATORY Comment: Diabetes: >=200 mg/dL plus symp toms BUN 20 10 - 20 mg/dL [facility] LABORATORY Creatinine 1.19 0.80 - 1.50 [...] estions. Chloride 107 98 - 107 mmol/L [facility] LABORATORY CO2 21 (L) 22 - 31 mmol/L [facility] LABORATORY Anion Gap 15 5 - 15 mmol/L [facility] LABORATORY Calcium 7.4 (L) 8.5 - 10.5 mg/dL [facility] LABORATORY Estimated GFR 60 >=60 [facility] LABORATORY Comment: The reported eGFR should be multiplied b y 1.2 for patients. The MDRD is not an appropriate measure o f renal function for patients with body mass extremes or in patients with acute kidney failure. http://[employer]/DHnkdep http://[employer]/DHMCnkf Specimen Anatomical Collection Method Collection Time Receive d Time (Source) Location / / Volume Laterality Blood specimen 07/10/2017 4:28 AM 017 4:36 (specimen) EST AM EST Resulting Agency Comment Spec In Lab Yuan Webber MD CHEMISTRY ORDERABLES Performing Organization Address City/State/ZIP Code Phon e Number [address] POCT Glucose (07/10/2017 4:26 AM EST) athologist Signature POC Glucose 176 65 - 199 [facility] mg/dL [facility] LABORATORY Comment: Supplemental ranges: <140 mg/dL before meals <180 mg/dL all other times of the day Specimen Anatomical Collection Method Collection Time Receive d Time (Source) Location / / Volume Laterality Blood specimen 07/10/2017 4:26 AM 017 4:26 (specimen) EST AM EST Yuan Webber MD POINT OF CARE TEST ORDERABLE S Performing Organization Address City/State/[place] [address] (ABNORMAL) POCT Glucose (07/10/2017 3:06 AM EST) athologist Signature POC Glucose 204 (H) 65 - 199 [place] mg/dL [facility] LABORATORY Comment: Supplemental ranges: <140 mg/dL before meals <180 mg/dL all other times of the day Specimen Anatomical Collection Method Collection Time Receive d Time (Source) Location / / Volume Laterality Blood specimen 07/10/2017 3:06 AM 017 3:06 (specimen) EST AM EST Yuan Webber MD POINT OF CARE TEST ORDERABLE S Performing Organization Address City/State/[place] [address] (ABNORMAL) POCT Glucose (07/10/2017 2:10 AM EST) athologist Signature POC Glucose 203 (H) 65 - 199 [facility] mg/dL [facility] LABORATORY Comment: Supplemental ranges: <140 mg/dL before meals <180 mg/dL all other times of the day Specimen Anatomical Collection Method Collection Time Receive d Time (Source) Location / / Volume Laterality Blood specimen 07/10/2017 2:10 AM 017 2:10 (specimen) EST AM EST Yuan Webber MD POINT OF CARE TEST ORDERABLE S Performing Organization Address City/State/[place] [address] POCT Glucose (07/10/2017 1:09 AM EST) athologist Signature POC Glucose 196 65 - 199 [facility] mg/dL [facility] LABORATORY Comment: Supplemental ranges: <140 mg/dL before meals <180 mg/dL all other times of the day Specimen Anatomical Collection Method Collection Time Receive d Time (Source) Location / / Volume Laterality Blood specimen 07/10/2017 1:09 AM 017 1:09 (specimen) EST AM EST Yuan Webber MD POINT OF CARE TEST ORDERABLE S Performing Organization Address City/State/[place] [address] POCT Glucose (07/10/2017 12:10 AM EST) athologist Signature POC Glucose 173 65 - 199 [place] RYAN mg/dL [facility] LABORATORY Comment: Supplemental ranges: <140 mg/dL before meals <180 mg/dL all other times of the day Specimen Anatomical Collection Method Collection Time Receive d Time (Source) Location / / Volume Laterality Blood specimen 07/10/2017 12:10 7 (specimen) AM EST 12:10 AM EST Yuan Webber MD POINT OF CARE TEST ORDERABLE S Performing Organization Address City/State/ZIP Code Phon e Number [address] POCT Glucose (07/09/2017 11:01 PM EST) athologist Signature POC Glucose 140 65 - 199 [place] ZHAORYAN mg/dL [facility] LABORATORY Comment: Supplemental ranges: <140 mg/dL before meals <180 mg/dL all other times of the day Specimen Anatomical Collection Method Collection Time Receive d Time (Source) Location / / Volume Laterality Blood specimen 07/09/2017 11:01 7 (specimen) PM EST 11:01 PM EST Yuan Webber MD POINT OF CARE TEST ORDERABLE S Performing Organization Address City/State/ZIP Code Phon e Number [address] POCT Glucose (07/09/2017 10:05 PM EST) athologist Signature POC Glucose 144 65 - 199 [place]AL[place] RYAN mg/dL [facility] LABORATORY Comment: Supplemental ranges: <140 mg/dL before meals <180 mg/dL all other times of the day Specimen Anatomical Collection Method Collection Time Receive d Time (Source) Location / / Volume Laterality Blood specimen 07/09/2017 10:05 7 (specimen) PM EST 10:05 PM EST Yuan Webber MD POINT OF CARE TEST ORDERABLE S Performing Organization Address City/State/ZIP Code Phon e Number [address] POCT Glucose (07/09/2017 9:31 PM EST) athologist Signature POC Glucose 121 65 - 199 [place] RYAN mg/dL [facility] LABORATORY Comment: Supplemental ranges: <140 mg/dL before meals <180 mg/dL all other times of the day Specimen Anatomical Collection Method Collection Time Receive d Time (Source) Location / / Volume Laterality Blood specimen 07/09/2017 9:31 PM 017 9:31 (specimen) EST PM EST Yuan Webber MD POINT OF CARE TEST ORDERABLE S Performing Organization Address City/State/[place] [address] POCT Glucose (07/09/2017 9:03 PM EST) athologist Signature POC Glucose 98 65 - 199 K[place]AL[place] ZHAORYAN mg/dL [facility] LABORATORY Comment: Supplemental ranges: <140 mg/dL before meals <180 mg/dL all other times of the day Specimen Anatomical Collection Method Collection Time Receive d Time (Source) Location / / Volume Laterality Blood specimen 07/09/2017 9:03 PM 017 9:03 (specimen) EST PM EST Yuan Webber MD POINT OF CARE TEST ORDERABLE S Performing Organization Address City/State/[place] [address] POCT Glucose (07/09/2017 8:09 PM EST) athologist Signature POC Glucose 117 65 - 199 [place] RYAN mg/dL [facility] LABORATORY Comment: Supplemental ranges: <140 mg/dL before meals <180 mg/dL all other times of the day Specimen Anatomical Collection Method Collection Time Receive d Time (Source) Location / / Volume Laterality Blood specimen 07/09/2017 8:09 PM 017 8:09 (specimen) EST PM EST Yuan Webber MD POINT OF CARE TEST ORDERABLE S Performing Organization Address City/State/[place] [address] POCT Glucose (07/09/2017 5:40 PM EST) athologist Signature POC Glucose 155 65 - 199 K[place]AL[place] ZHAORYAN mg/dL [facility] LABORATORY Comment: Supplemental ranges: <140 mg/dL before meals <180 mg/dL all other times of the day Specimen Anatomical Collection Method Collection Time Receive d Time (Source) Location / / Volume Laterality Blood specimen 07/09/2017 5:40 PM 017 5:40 (specimen) EST PM EST Yuan Webber MD POINT OF CARE TEST ORDERABLE S Performing Organization Address City/State/ZIP Code Phon e Number [address] POCT Glucose (07/09/2017 4:24 PM EST) athologist Signature POC Glucose 164 65 - 199 [place] RYAN mg/dL [facility] LABORATORY Comment: Supplemental ranges: <140 mg/dL before meals <180 mg/dL all other times of the day Specimen Anatomical Collection Method Collection Time Receive d Time (Source) Location / / Volume Laterality Blood specimen 07/09/2017 4:24 PM 017 4:24 (specimen) EST PM EST Yuan Webber MD POINT OF CARE TEST ORDERABLE S Performing Organization Address City/State/ZIP Code Phon e Number [address] POCT Glucose (07/09/2017 3:19 PM EST) athologist Signature POC Glucose 166 65 - 199 [place] RYAN mg/dL [facility] LABORATORY Comment: Supplemental ranges: <140 mg/dL before meals <180 mg/dL all other times of the day Specimen Anatomical Collection Method Collection Time Receive d Time (Source) Location / / Volume Laterality Blood specimen 07/09/2017 3:19 PM 017 3:19 (specimen) EST PM EST Yuan Webber MD POINT OF CARE TEST ORDERABLE S Performing Organization Address City/State/[place] [address] POCT Glucose (07/09/2017 2:26 PM EST) athologist Signature POC Glucose 179 65 - 199 [facility] RYAN mg/dL [facility] LABORATORY Comment: Supplemental ranges: <140 mg/dL before meals <180 mg/dL all other times of the day Specimen Anatomical Collection Method Collection Time Receive d Time (Source) Location / / Volume Laterality Blood specimen 07/09/2017 2:26 PM 017 2:26 (specimen) EST PM EST Yuan Webber MD POINT OF CARE TEST ORDERABLE S Performing Organization Address City/State/[place] [address] (ABNORMAL) POCT Glucose (07/09/2017 1:29 PM EST) athologist Signature POC Glucose 210 (H) 65 - 199 [place] RYAN mg/dL [facility] LABORATORY Comment: Supplemental ranges: <140 mg/dL before meals <180 mg/dL all other times of the day Specimen Anatomical Collection Method Collection Time Receive d Time (Source) Location / / Volume Laterality Blood specimen 07/09/2017 1:29 PM 017 1:29 (specimen) EST PM EST Yuan Webber MD POINT OF CARE TEST ORDERABLE S Performing Organization Address City/State/[place] [address] POCT Glucose (07/09/2017 12:20 PM EST) athologist Signature POC Glucose 172 65 - 199 [place]AL[place] RYAN mg/dL [facility] LABORATORY Comment: Supplemental ranges: <140 mg/dL before meals <180 mg/dL all other times of the day Specimen Anatomical Collection Method Collection Time Receive d Time (Source) Location / / Volume Laterality Blood specimen 07/09/2017 12:20 7 (specimen) PM EST 12:20 PM EST Yuan Webber MD POINT OF CARE TEST ORDERABLE S Performing Organization Address City/State/[place] [address] POCT Glucose (07/09/2017 11:24 AM EST) athologist Signature POC Glucose 156 65 - 199 K[place]AL[place] RYAN mg/dL [facility] LABORATORY Comment: Supplemental ranges: <140 mg/dL before meals <180 mg/dL all other times of the day Specimen Anatomical Collection Method Collection Time Receive d Time (Source) Location / / Volume Laterality Blood specimen 07/09/2017 11:24 7 (specimen) AM EST 11:24 AM EST Yuan Webber MD POINT OF CARE TEST ORDERABLE S Performing Organization Address City/State/ZIP Code Phon e Number [address] POCT Glucose (07/09/2017 11:11 AM EST) athologist Signature POC Glucose 172 65 - 199 K[place]AL[place] RYAN mg/dL [facility] LABORATORY Comment: Supplemental ranges: <140 mg/dL before meals <180 mg/dL all other times of the day Specimen Anatomical Collection Method Collection Time Receive d Time (Source) Location / / Volume Laterality Blood specimen 07/09/2017 11:11 7 (specimen) AM EST 11:11 AM EST Yuan Webber MD POINT OF CARE TEST ORDERABLE S Performing Organization Address City/State/[place] [address] POCT Glucose (07/09/2017 10:08 AM EST) athologist Signature POC Glucose 176 65 - 199 [facility] mg/dL [facility] LABORATORY Comment: Supplemental ranges: <140 mg/dL before meals <180 mg/dL all other times of the day Specimen Anatomical Collection Method Collection Time Receive d Time (Source) Location / / Volume Laterality Blood specimen 07/09/2017 10:08 7 (specimen) AM EST 10:08 AM EST Yuan Webber MD POINT OF CARE TEST ORDERABLE S Performing Organization Address City/State/[place] [address] POCT Glucose (07/09/2017 8:02 AM EST) athologist Signature POC Glucose 178 65 - 199 [facility] RYAN mg/dL [facility] LABORATORY Comment: Supplemental ranges: <140 mg/dL before meals <180 mg/dL all other times of the day Specimen Anatomical Collection Method Collection Time Receive d Time (Source) Location / / Volume Laterality Blood specimen 07/09/2017 8:02 AM 017 8:02 (specimen) EST AM EST Yuan Webber MD POINT OF CARE TEST ORDERABLE S Performing Organization Address City/State/[place] [address] (ABNORMAL) BLOOD GAS 2 ARTERIAL (07/09/2017 5:37 AM EST) Analysis Performed At Patho logist Time Signature pH Art 7.36 7.35 - [facility] 7.45 [facility] LABORATORY pCO2 Art 38 35 - 45 [facility] LABORATORY pO2 Art 79 (L) 85 - 104 [facility] LABORATORY HCO3 Art 20.9 20.0 - [facility] 26.[address] [facility] mmol/[facility] LABORATORY BE Art -4.6 (L) -3.0 - 3.0 [facility] mmol/L [facility] LABORATORY Hgb Blood Gas 10.5 (L) 13.7 - [facility] 16.5 gm/dL [facility] LABORATORY O2HB Art 93.8 (L) 94.0 - [facility] 97.0 % [facility] LABORATORY COHB Art 0.3 % [facility] LABORATORY Comment: Nonsmokers: 0.5-1.5% COHB Smokers: Variable, but usually less than 10% Toxic: 20-30% COHB Lethal: Greater than 60% COHB METHB Art 0.6 <=1.5 % [facility] LABORATORY Na Whole Blood 141 135 - 145 mmol/L [facility] K Whole Blood 4.5 3.5 - 5.0 mmol/L [facility] LABORATORY Comment: Please note: Patients with WBC >100,000 may have falsely elevated Potassium levels. Contact the Clinical Chemistry L aboratory if there are any questions. ICa Whole Blood 1.01 (L) 1.15 - 1.33 mmol/L [facility] LABORATORY Comment: Note: ??Total bilirubin higher than 20 m g/dL may lead to falsely low ionized calcium. CL Whole Blood 113 (H) 98 - 107 mmol/L [facility] LABORATORY Gluc Whole Bld 175 65 - 199 mg/dL [facility] LABORATORY Comment: Diabetes: >=200 mg/dL plus symp toms. Lactate WB 1.0 0.5 - 2.2 mmol/L [facility] LABORATORY FIO2 Art 40 % [facility] LABORATORY PF Ratio Art 198 [facility] LABORATORY Specimen Anatomical Collection Method Collection Time Receive d Time (Source) Location / / Volume Laterality Blood specimen 07/09/2017 5:37 AM 017 5:37 (specimen) EST AM EST Yuan Webber MD CHEMISTRY ORDERABLES Performing Organization Address City/[facility]/ZIP Code Phon e Number [address] POCT Glucose (07/09/2017 3:27 AM EST) athologist Signature POC Glucose 192 65 - 199 [facility] LABORATORY Comment: Supplemental ranges: [...] City/[facility]/[place] [address] (ABNORMAL) Basic Metabolic Panel (non-fasting) (07/09/2017 2:30 AM EST) athologist Signature Glucose Lvl 179 65 - 199 [facility] mg/dL [facility] LABORATORY Comment: Diabetes: >=200 mg/dL plus symp toms BUN 17 10 - 20 mg/dL [facility] LABORATORY Creatinine 1.34 0.80 - 1.50 [...] Chloride 111 (H) 98 - 107 mmol/L [facility] LAB[facility] CO2 21 (L) 22 - 31 mmol/L [facility] Anion Gap 12 5 - 15 mmol/L [facility] LABORATORY Calcium 7.1 (L) 8.5 - 10.5 mg/dL [facility] LABORATORY Comment: result [id number] Estimated GFR 53 (L) >=60 [facility] LABORATORY Comment: The reported eGFR should be multiplied b y 1.2 for patients. The MDRD is not an appropriate measure o f renal function for patients with body mass extremes or in patients with acute kidney failure. http://[employer]/DHnkdep http://[employer]/DHMCnkf Specimen Anatomical Collection Method Collection Time Receive d Time (Source) Location / / Volume Laterality Blood specimen Venous Draw / 07/09/2017 2:30 AM 2016 2:42 (specimen) Unknown EST AM EST Resulting Agency Comment Spec In Lab Yuan Webber MD CHEMISTRY ORDERABLES Performing Organization Address City/State/[facility] [place] [address] (ABNORMAL) Potassium (07/09/2017 2:30 AM EST) P athologist Signature Potassium 5.1 (H) 3.5 - 5.0 [facility] mmol/L [facility] LABORATORY Comment: Please note: [...] City/State/ZIP Code Phon e Number [place] [id number] (ABNORMAL) Hemogram (07/09/2017 2:30 AM EST) Analysis Performed At Patho logist Time Signature WBC 12.5 (H) 4.0 - 9.5 [facility] x[facility](3[facility] LABORATORY RBC 3.38 (L) 4.58 - [place] RYAN 5.[address] [facility] x10(6)/[facility] LABORATORY Hemoglobin 10.1 (L) 13.7 - [facility] [facility] 16.5 gm/dL [facility] Hematocrit 30.3 (L) 40.5 - [facility] 48.5 % [facility] MCV 89.6 82.9 - [facility] 93.1 [facility] LABORATORY MCH 29.9 27.5 - [place] R[place] 32.1 pg [facility] MCHC 33.3 32.0 - [place] R[place] 35.7 gm/dL [facility] Platelets 127 (L) 145 - 357 [facility] x10(3)/[facility] LABORATORY RDWSD 49.3 (H) 36.0 - [place] RYAN 45.0 [facility] LABORATORY RDWCV 15.2 (H) 11.4 - [facility] RYAN 13.8 % [facility] MPV 9.9 7.6 - 12.9 [facility] LABORATORY nRBC % Auto 0.0 % [facility] nRBC Abs Auto 0.000 0.000 - [facility] RYAN 0.[address] [facility] x10(3)/[facility] LABORATORY Specimen Anatomical Collection Method Collection Time Receive d Time (Source) Location / / Volume Laterality Blood specimen 07/09/2017 2:30 AM 017 2:41 (specimen) EST AM EST Resulting Agency Comment Spec In Lab Yuan Webber MD HEMATOLOGY ORDERABLES Performing Organization Address City/State/[place] [address] [facility] [address] POCT Glucose (07/09/2017 2:10 AM EST) P athologist Signature POC Glucose 169 65 - 199 [place] mg/dL [facility] Comment: Supplemental ranges: [...] City/[facility]/[place] [address] POCT Glucose (07/09/2017 1:01 AM EST) P athologist Signature POC Glucose 173 65 - 199 [place] mg/dL [facility] Comment: Supplemental ranges: <140 mg/dL before meals <180 mg/dL all other times of the day Specimen Anatomical Collection Method Collection Time Receive d Time (Source) Location / / Volume Laterality Blood specimen 07/09/2017 1:01 AM 017 1:01 (specimen) EST AM EST Yuan Webber MD POINT OF CARE TEST ORDERABLE S Performing Organization Address City/State/[place] [address] Blood culture (07/09/2017 12:40 AM EST) Patholo gist Method Time Signature Blood Culture No growth K[place]INA ZHAORYAN at 5 days. [facility] Specimen Anatomical Collection Method Collection Time Receive d Time (Source) Location / / Volume Laterality Blood specimen STRUCTURE OF RIGHT 07/09/2017 12:40 3:58 (specimen) UPPER LIMB / AM EST AM EST Unknown Resulting Agency Comment Spec In Lab Yuan Webber MD MICROBIOLOGY - BLOOD ORDERAB LES Performing Organization Address City/State/[place] [address] Blood culture (07/09/2017 12:30 AM EST) Patholo gist Method Time Signature Blood Culture No growth KATALINA ZHAORYAN at 5 days. [facility] Specimen Anatomical Collection Method Collection Time Receive d Time (Source) Location / / Volume Laterality Blood specimen STRUCTURE OF LEFT 07/09/2017 12:30 1211/2016 3:59 (specimen) UPPER LIMB / AM EST AM EST Unknown Resulting Agency Comment Spec In Lab Yuan Webber MD MICROBIOLOGY - BLOOD ORDERAB LES Performing Organization Address City/[facility]/[place] [address] (ABNORMAL) Urinalysis Microscopic Exam (07/09/2017 12:05 AM EST) Analysis Performed At Patho logist Time Signature RBC UA 32 (H) 0 - 3 /HPF [facility] WBC UA 5 (H) 0 - 3 /HPF [facility] Squam Epith UA <1 <=4 /HPF [facility] Hyaline Cast 17 (H) 0 - 2 /LPF [facility] Gran Cast UA 1 (H) <=0 /LPF [facility] Uric Ac Bianca Rare (A) None /HPF [facility] Specimen (Source) Anatomical Collection Method Collection Time Re ceived Time Location / / Volume Laterality Urine specimen 07/09/2017 12:05 7 obtained via AM EST 12:39 AM EST indwelling urinary catheter (specimen) Resulting Agency Comment Spec In Lab Yuan Webber MD URINE ORDERABLES Performing Organization Address City/[facility]/[place] [address] (ABNORMAL) Urinalysis with reflex Culture (07/09/2017 12:05 AM EST) Patholo gist Method Time Signature Glucose UA Negative Negative [facility] mg/dL [facility] Protein UA 30 (A) Negative [facility] mg/dL [facility] Bilirubin UA Negative Negative [facility] mg/dL [facility] Comment: Clinical correlation required [...] LABORATORY Blood UA Moderate (A) Negative mg/dL [facility] Ketones UA Negative Negative mg/dL [facility] Nitrite UA Negative Negative [facility] Leukocytes UA Negative Negative [facility] LABORATORY Appearance UA Hazy (A) Clear [facility] Spec Hurley UA 1.025 1.002 - 1.030 [facility] Color UA Yellow Yellow [facility] Culture Reflexed No [facility] Specimen (Source) Anatomical Collection Method Collection Time Re ceived Time Location / / Volume Laterality Urine specimen 07/09/2017 12:05 7 obtained via AM EST 12:39 AM EST indwelling urinary catheter (specimen) Resulting Agency Comment Spec In Lab Yuan Webber MD URINE ORDERABLES Performing Organization Address City/[facility]/ZIP Code Phon e Number [address] POCT Glucose (07/08/2017 11:01 PM EST) athologist Signature POC Glucose 191 65 - 199 [facility] mg/dL [facility] Comment: Supplemental ranges: <140 mg/dL before meals <180 mg/dL all other times of the day Specimen Anatomical Collection Method Collection Time Receive d Time (Source) Location / / Volume Laterality Blood specimen 07/08/2017 11:01 7 (specimen) PM EST 11:01 PM EST Yuan Webber MD POINT OF CARE TEST ORDERABLE S Performing Organization Address City/State/ZIP Code Phon e Number [address] POCT Glucose (07/08/2017 10:04 PM EST) athologist Signature POC Glucose 198 65 - 199 [facility] Comment: Supplemental ranges: <140 mg/dL before meals <180 mg/dL all other times of the day Specimen Anatomical Collection Method Collection Time Receive d Time (Source) Location / / Volume Laterality Blood specimen 07/08/2017 10:04 7 (specimen) PM EST 10:04 PM EST Yuan Webber MD POINT OF CARE TEST ORDERABLE S Performing Organization Address City/State/[place] [address] Prepare Albumin 5% in 250 mL (07/08/2017 8:49 PM EST) P athologist Signature Dispensed? Yes [facility] Specimen Anatomical Collection Method Collection Time Receive d Time (Source) Location / / Volume Laterality Blood specimen No Charge / 07/08/2017 8:49 PM 017 8:51 (specimen) Unknown EST PM EST Resulting Agency Comment Spec In Lab [facility] ORDERABLES Performing Organization Address City/[facility]/[place] [address] POCT Glucose (07/08/2017 8:28 PM EST) P athologist Signature POC Glucose 195 65 - 199 [facility] mg/dL [facility] Comment: Supplemental ranges: <140 mg/dL before meals <180 mg/dL all other times of the day Specimen Anatomical Collection Method Collection Time Receive d Time (Source) Location / / Volume Laterality Blood specimen 07/08/2017 8:28 PM 017 8:28 (specimen) EST PM EST Yuan Webber MD POINT OF CARE TEST ORDERABLE S Performing Organization Address City/State/[place] [address] (ABNORMAL) POCT Glucose (07/08/2017 7:13 PM EST) P athologist Signature POC Glucose 220 (H) 65 - 199 [facility] mg/dL [facility] Comment: Supplemental ranges: <140 mg/dL before meals <180 mg/dL all other times of the day Specimen Anatomical Collection Method Collection Time Receive d Time (Source) Location / / Volume Laterality Blood specimen 07/08/2017 7:13 PM 017 7:13 (specimen) EST PM EST Yuan Webber MD POINT OF CARE TEST ORDERABLE S Performing Organization Address City/State/[place] [address] POCT Glucose (07/08/2017 5:04 PM EST) P athologist Signature POC Glucose 147 65 - 199 [facility] mg/dL [facility] Comment: Supplemental ranges: <140 mg/dL before meals <180 mg/dL all other times of the day Specimen Anatomical Collection Method Collection Time Receive d Time (Source) Location / / Volume Laterality Blood specimen 07/08/2017 5:04 PM 017 5:04 (specimen) EST PM EST Yuan Webber MD POINT OF CARE TEST ORDERABLE S Performing Organization Address City/State/[place] [address] (ABNORMAL) BLOOD GAS 2 ARTERIAL (07/08/2017 4:13 PM EST) Analysis Performed At Patho logist Time Signature pH Art 7.38 7.35 - [facility] 7.45 [facility] pCO2 Art 36 35 - 45 [facility] LABORATORY pO2 Art 91 85 - 104 [facility] LABORATORY HCO3 Art 20.9 20.0 - [facility] 26.[address] [facility] mmol/L [facility] LABORATORY BE Art -4.2 (L) -3.0 - 3.0 [facility] mmol/L [facility] Hgb Blood Gas 11.7 (L) 13.7 - [facility] 16.5 gm/dL [facility] O2HB Art 95.1 94.0 - [facility] 97.0 % [facility]ORY COHB Art 0.6 % [facility] Comment: Nonsmokers: 0.5-1.5% COHB Smokers: Variable, but usually less than 10% Toxic: 20-30% COHB Lethal: Greater than 60% COHB METHB Art 0.6 <=1.5 % [facility]OR[facility] Na Whole Blood 139 135 - 145 mmol/L [facility] K Whole Blood 4.2 3.5 - 5.0 mmol/L [facility] Comment: Please note: Patients with WBC >100,000 may have falsely elevated Potassium levels. Contact the Clinical Chemistry L aboratory if there are any questions. ICa Whole Blood 1.05 (L) 1.15 - 1.33 mmol/L [facility] Comment: Note: ??Total bilirubin higher than 20 m g/dL may lead to falsely low ionized calcium. CL Whole Blood 110 (H) 98 - 107 mmol/L [facility] Gluc Whole Bld 155 65 - 199 mg/dL [facility] Comment: Diabetes: >=200 mg/dL plus symp toms. Lactate WB 1.4 0.5 - 2.2 mmol/L [facility] LABORATORY FIO2 Art 40 % [facility] PF Ratio Art 228 [facility] LABOR[facility]ORY Specimen Anatomical Collection Method Collection Time Receive d Time (Source) Location / / Volume Laterality Blood specimen 07/08/2017 4:13 PM 017 4:13 (specimen) EST PM EST Yuan Webber MD CHEMISTRY ORDERABLES Performing Organization Address City/[facility]/ZIP [facility] Phon e Number [address] POCT Glucose (07/08/2017 4:01 PM EST) athologist Signature POC Glucose 148 65 - 199 [facility] mg/dL [facility] Comment: Supplemental ranges: <140 mg/dL before meals <180 mg/dL all other times of the day Specimen Anatomical Collection Method Collection Time Receive d Time (Source) Location / / Volume Laterality Blood specimen 07/08/2017 4:01 PM 017 4:01 (specimen) EST PM EST Yuan Webber MD POINT OF CARE TEST ORDERABLE S Performing Organization Address City/[facility] Code Phon e Number [address] POCT Glucose (07/08/2017 3:21 PM EST) athologist Signature POC Glucose 118 65 - 199 [facility] mg/dL [facility] Comment: Supplemental ranges: <140 mg/dL before meals <180 mg/dL all other times of the day Specimen Anatomical Collection Method Collection Time Receive d Time (Source) Location / / Volume Laterality Blood specimen 07/08/2017 3:21 PM 017 3:21 (specimen) EST PM EST Yuan Webber MD POINT OF CARE TEST ORDERABLE S Performing Organization Address City/State/[place] [address] POCT Glucose (07/08/2017 2:01 PM EST) athologist Signature POC Glucose 129 65 - 199 [place] RYAN mg/dL [facility] Comment: Supplemental ranges: <140 mg/dL before meals <180 mg/dL all other times of the day Specimen Anatomical Collection Method Collection Time Receive d Time (Source) Location / / Volume Laterality Blood specimen 07/08/2017 2:01 PM 017 2:01 (specimen) EST PM EST Yuan Webber MD POINT OF CARE TEST ORDERABLE S Performing Organization Address City/State/[place] [address] POCT Glucose (07/08/2017 11:53 AM EST) athologist Signature POC Glucose 156 65 - 199 [place] ZHAORYAN mg/dL [facility] Comment: Supplemental ranges: <140 mg/dL before meals <180 mg/dL all other times of the day Specimen Anatomical Collection Method Collection Time Receive d Time (Source) Location / / Volume Laterality Blood specimen 07/08/2017 11:53 7 (specimen) AM EST 11:53 AM EST Yuan Webber MD POINT OF CARE TEST ORDERABLE S Performing Organization Address City/State/ZIP Code Phon e Number [address] POCT Glucose (07/08/2017 11:04 AM EST) athologist Signature POC Glucose 181 65 - 199 [facility] R[place] mg/dL [facility] Comment: Supplemental ranges: [...] City/[facility]/[place] [address] (ABNORMAL) POCT Glucose (07/08/2017 9:24 AM EST) athologist Signature POC Glucose 203 (H) 65 - 199 [facility] mg/dL [facility] Comment: Supplemental ranges: [...] City/[facility]/[place] [address] APTT (07/08/2017 8:40 AM EST) athologist Signature PTT 33 25 - [address] [facility] Comment: The recommended therapeutic range for fu ll dose, unfractionated heparin at [facility] is 80 ? 114 [...] Webber MD HEMATOLOGY ORDERABLES Performing Organization Address City/[facility]/[place] [address] (ABNORMAL) Prothrombin Time (07/08/2017 [...] Webber MD HEMATOLOGY ORDERABLES Performing Organization Address City/[facility]/[place] [address] (ABNORMAL) POCT Glucose (07/08/2017 7:38 AM EST) P athologist Signature POC Glucose 232 (H) 65 - 199 [facility] mg/dL [facility] Comment: Supplemental ranges: <140 mg/dL before meals <180 mg/dL all other times of the day Specimen Anatomical Collection Method Collection Time Receive d Time (Source) Location / / Volume Laterality Blood specimen 07/08/2017 7:38 AM 017 7:38 (specimen) EST AM EST Yuan Webber MD POINT OF CARE TEST ORDERABLE S Performing Organization Address City/State/[place] [address] (ABNORMAL) POCT Glucose (07/08/2017 7:07 AM EST) P athologist Signature POC Glucose 234 (H) 65 - 199 [facility] mg/dL [facility] Comment: Supplemental ranges: <140 mg/dL before meals <180 mg/dL all other times of the day Specimen Anatomical Collection Method Collection Time Receive d Time (Source) Location / / Volume Laterality Blood specimen 07/08/2017 7:07 AM 017 7:07 (specimen) EST AM EST Yuan Webber MD POINT OF CARE TEST ORDERABLE S Performing Organization Address City/State/[place] [address] (ABNORMAL) POCT Glucose (07/08/2017 6:04 AM EST) athologist Signature POC Glucose 225 (H) 65 - 199 [facility] [place] mg/dL [facility] Comment: Supplemental ranges: [...] City/[facility]/[place] [address] (ABNORMAL) POCT Glucose (07/08/2017 5:31 AM EST) athologist Signature POC Glucose 216 (H) 65 - 199 [facility] mg/dL [facility] Comment: Supplemental ranges: <140 mg/dL before meals <180 mg/dL all other times of the day Specimen Anatomical Collection Method Collection Time Receive d Time (Source) Location / / Volume Laterality Blood specimen 07/08/2017 5:31 AM 017 5:31 (specimen) EST AM EST Yuan Webber MD POINT OF CARE TEST ORDERABLE S Performing Organization Address City/State/[place] [address] (ABNORMAL) POCT Glucose (07/08/2017 4:52 AM EST) athologist Signature POC Glucose 257 (H) 65 - 199 [facility] mg/dL [facility] Comment: Supplemental ranges: <140 mg/dL before meals <180 mg/dL all other times of the day Specimen Anatomical Collection Method Collection Time Receive d Time (Source) Location / / Volume Laterality Blood specimen 07/08/2017 4:52 AM 017 4:52 (specimen) EST AM EST Daphne Shahid MD POINT OF CARE TEST ORDERABLE S Performing Organization Address City/State/[place] [address] (ABNORMAL) BLOOD GAS 2 ARTERIAL (07/08/2017 4:04 AM EST) Analysis Performed At Patho logist Time Signature pH Art 7.30 (L) 7.35 - [facility] 7.45 [facility] pCO2 Art 41 35 - 45 [facility] mmHg [facility] LABORATORY pO2 Art 83 (L) 85 - 104 [facility] LABORATORY HCO3 Art 19.6 (L) 20.0 - [facility] 26.[address] [facility] mmol/[facility] LABORATORY BE Art -6.8 (L) -3.0 - 3.0 [facility] mmol/L [facility]OR[facility]ORY Hgb Blood Gas 12.2 (L) 13.7 - [facility] 16.5 gm/dL [facility] O2HB Art 93.5 (L) 94.0 - [facility] 97.0 % [facility]OR[facility]ORY COHB Art 0.4 % [facility] Comment: Nonsmokers: 0.5-1.5% COHB Smokers: Variable, but usually less than 10% Toxic: 20-30% COHB Lethal: Greater than 60% COHB METHB Art 0.8 <=1.5 % [facility] Na Whole Blood 138 135 - 145 mmol/L [facility] K Whole Blood 4.4 3.5 - 5.0 mmol/L [facility] Comment: Please note: Patients with WBC >100,000 may have falsely elevated Potassium levels. Contact the Clinical Chemistry L aboratory if there are any questions. ICa Whole Blood 1.05 (L) 1.15 - 1.33 mmol/L [facility] Comment: Note: ??Total bilirubin higher than 20 m g/dL may lead to falsely low ionized calcium. CL Whole Blood 107 98 - 107 mmol/L [facility] Gluc Whole Bld 274 (H) 65 - 199 mg/dL [facility] Comment: Diabetes: >=200 mg/dL plus symp toms. Lactate WB 4.4 (Critical) 0.5 - 2.2 mmol/L [facility] Comment: Noted by [employer]. FIO2 Art 40 % [facility] PF Ratio Art 208 [facility] LABORATORY Specimen Anatomical Collection Method Collection Time Receive d Time (Source) Location / / Volume Laterality Blood specimen 07/08/2017 4:04 AM 017 4:04 (specimen) EST AM EST Daphne Shahid MD CHEMISTRY ORDERABLES Performing Organization Address City/[facility]/ZIP Code Phon e Number [address] Scan, Peripheral Blood (07/08/2017 4:00 AM EST) P athologist Signature Plat Estimate Normal [facility] RBC Morphology Normal [facility] Specimen Anatomical Collection Method Collection Time Receive d Time (Source) Location / / Volume Laterality Blood specimen 07/08/2017 4:00 AM 017 4:09 (specimen) EST AM EST Resulting Agency Comment Spec In Lab Yuan Webber MD HEMATOLOGY ORDERABLES Performing Organization Address City/[facility]/ZIP Code Phon e Number [address] (ABNORMAL) Differential, Automated (07/08/2017 4:00 AM EST) Patholo gist Method Time Signature Neutrophils % 85.4 % [facility] Neutr Abs (ANC) 16.07 (H) 1.70 - [facility] 6.[address] [facility] x10(3)/[facility] L LABORATORY Lymphocytes % 3.5 % [facility] Lymphocytes Abs 0.6 (L) 0.9 - 3.2 [facility] x10(3)/[facility] LABORATORY Monocytes % 10.4 % [facility] Monocyte Abs 2.0 (H) 0.3 - 0.9 [facility] x10(3)/[facility] LABORATORY Eosinophils % 0.0 % [facility] Eosinophils Abs 0.0 0.0 - 0.4 [facility] x10(3)/[facility] LABORATORY Basophils % 0.1 % [facility] Basophils Abs 0.0 0.0 - 0.1 [facility] x10(3)/[facility] LABORATORY Immature Gran % 0.60 % ST [...] Gran Abs 0.12 (H) 0.00 - 0.04 x10(3)/[facility] LABORATORY Specimen Anatomical Collection Method Collection Time Receive d Time (Source) Location / / Volume Laterality Blood specimen 07/08/2017 4:00 AM 017 4:09 (specimen) EST AM EST Resulting Agency Comment Spec In Lab Yuan Webber MD HEMATOLOGY ORDERABLES Performing Organization Address City/State/ZIP Code Phon e Number [place] [id number] (ABNORMAL) Hemogram (07/08/2017 4:00 AM EST) Analysis Performed At Patho logist Time Signature WBC 18.8 (H) 4.0 - 9.5 [facility] x10(3)/[facility] LABORATORY RBC 4.00 (L) 4.58 - [facility]AN 5.[address] [facility] x10(6)/[facility] LABORATORY Hemoglobin 11.9 (L) 13.7 - [facility] 16.5 gm/dL [facility] Hematocrit 35.9 (L) 40.5 - [facility] 48.5 % [facility]ATORY MCV 89.8 82.9 - [facility] 93.1 fL [facility] MCH 29.8 27.5 - [place] 32.1 pg [facility] MCHC 33.1 32.0 - [facility] 35.7 gm/dL [facility] Platelets 232 145 - 357 [facility] x10(3)/[facility] LABORATORY RDWSD 47.6 (H) 36.0 - [facility] 45.0 [facility] [facility] LABORATORY RDWCV 14.5 (H) 11.4 - [facility] 13.8 % [facility] LABORATORY MPV 9.5 7.6 - 12.9 [facility] [place] LABORATORY nRBC % Auto 0.0 % [facility] LABORATORY nRBC Abs Auto 0.000 0.000 - [facility] 0.[address] [facility] x10(3)/[facility] LABORATORY Specimen Anatomical Collection Method Collection Time Receive d Time (Source) Location / / Volume Laterality Blood specimen 07/08/2017 4:00 AM 017 4:09 (specimen) EST AM EST Resulting Agency Comment Spec In Lab Yuan Webber MD HEMATOLOGY ORDERABLES Performing Organization Address City/[facility]/[place] [address] (ABNORMAL) Electrolytes panel (07/08/2017 4:00 AM EST) P athologist Signature Sodium 139 135 - 145 [facility] mmol/L [facility] LABORATORY Potassium 4.7 3.5 - 5.0 [facility] mmol/[facility] LABORATORY Comment: result rechecked-JLK Please note: ??Patients with WBC >100,00 0 may have falsely elevated Potassium levels. ??For accurate Potassium quantif ication in these patients send serum separator tube (gold top) for subsequent determinations. ??Contact the Clinical Chemistry Laboratory if there are any qu estions. Chloride 104 98 - 107 mmol/L [facility] LABORATORY CO2 21 (L) 22 - 31 mmol/L [facility] LABOR[facility] Anion Gap 14 5 - 15 mmol/L [facility] LABORATORY Specimen Anatomical Collection Method Collection Time Receive d Time (Source) Location / / Volume Laterality Blood specimen 07/08/2017 4:00 AM 017 4:10 (specimen) EST AM EST Resulting Agency Comment Spec In Lab Yuan Webber MD CHEMISTRY ORDERABLES Performing Organization Address City/[facility]/[place]IP [facility] [place] [address] (ABNORMAL) Cardiac Enzymes (LEB/CGP) (07/08/2017 4:00 AM EST) athologist Signature Troponin-T 1.88 (H) 0.00 - [facility] 0.[facility] ng/mL [facility] LABORATORY Comment: The 99th [...] additional sample may be indicated. Reference: Third Wagram Definition of Myocardial Infarction. Journal of the [place] [employer] 2012;60:1581-98 CK, Total 413 (H) 0 - 200 unit/L [facility] LABORATORY Comment: result rechecked-K Specimen Anatomical Collection Method Collection Time Receive d Time (Source) Location / / Volume Laterality Blood specimen 07/08/2017 4:00 AM 017 4:09 (specimen) EST AM EST Resulting Agency Comment Spec In Lab Yuan Webber MD CHEMISTRY ORDERABLES Performing Organization Address City/State/[place] [address] (ABNORMAL) Glucose, fasting (07/08/2017 4:00 AM EST) athologist Signature Glucose 287 (H) 65 - 99 [facility] Fasting mg/dL [facility] LABORATORY Comment: ?Fasting* Glucose [...] of Diabetes Mellitus, Position Statement from the [place] [employer]. ??Diabete s Care, Volume 33, Supplement 1, Jul 2009 Specimen Anatomical Collection Method Collection Time Receive d Time (Source) Location / / Volume Laterality Blood specimen 07/08/2017 4:00 AM 017 4:09 (specimen) EST AM EST Resulting Agency Comment Spec In Lab Yuan Webber MD CHEMISTRY ORDERABLES Performing Organization Address City/[facility] [place] [address] (ABNORMAL) Creatinine (07/08/2017 4:00 AM EST) Analysis Performed At [facility] Time Signature Creatinine 1.55 (H) 0.80 - [facility] 1.50 mg/dL [facility] LABORATORY Estimated GFR 44 (L) >=60 [facility] LABORATORY Comment: The reported eGFR should be multiplied b y 1.2 for patients. The MDRD is not an appropriate measure o f renal function for patients with body mass extremes or in patients with acute kidney failure. [email or web address] Specimen Anatomical Collection Method Collection Time Receive d Time (Source) Location / / Volume Laterality Blood specimen 07/08/2017 4:00 AM 017 4:09 (specimen) EST AM EST Resulting Agency Comment Spec In Lab Yuan Webber MD CHEMISTRY ORDERABLES Performing Organization Address City/[facility]/[place] [address] BUN (07/08/2017 4:00 AM EST) athologist Signature BUN 16 10 - 20 [facility] mg/dL [facility] LABORATORY Specimen Anatomical Collection Method Collection Time Receive d Time (Source) Location / / Volume Laterality Blood specimen 07/08/2017 4:00 AM 017 4:09 (specimen) EST AM EST Resulting Agency Comment Spec In Lab Yuan Webber MD CHEMISTRY ORDERABLES Performing Organization Address City/State/[place] [address] (ABNORMAL) POCT Glucose (07/08/2017 3:00 AM EST) athologist Signature POC Glucose 273 (H) 65 - 199 [facility] mg/dL [facility] LABORATORY Comment: Supplemental ranges: [...] City/[facility]/[place] [address] (ABNORMAL) POCT Glucose (07/08/2017 1:57 AM EST) athologist Signature POC Glucose 288 (H) 65 - 199 [facility] mg/dL [facility] LABORATORY Comment: Supplemental ranges: <140 mg/dL before meals <180 mg/dL all other times of the day Specimen Anatomical Collection Method Collection Time Receive d Time (Source) Location / / Volume Laterality Blood specimen 07/08/2017 1:57 AM 017 1:57 (specimen) EST AM EST Daphne Shahid MD POINT OF CARE TEST ORDERABLE S Performing Organization Address City/State/[place] [address] (ABNORMAL) POCT Glucose (07/08/2017 1:01 AM EST) athologist Signature POC Glucose 315 (H) 65 - 199 [facility] mg/dL [facility] LABORATORY Comment: Supplemental ranges: <140 mg/dL before meals <180 mg/dL all other times of the day Specimen Anatomical Collection Method Collection Time Receive d Time (Source) Location / / Volume Laterality Blood specimen 07/08/2017 1:01 AM 017 1:01 (specimen) EST AM EST Daphne Shahid MD POINT OF CARE TEST ORDERABLE S Performing Organization Address City/State/[place] [address] (ABNORMAL) BLOOD GAS 2 ARTERIAL (07/08/2017 12:09 AM EST) athologist Signature pH Art 7.26 7.35 - [facility] (Critical) 7.45 [facility] LABORATORY Comment: Noted by [employer]. pCO2 Art 41 35 - 45 mmHg [facility] LABORATORY pO2 Art 96 85 - 104 mmHg [facility] LABORATORY HCO3 Art 17.7 (L) 20.0 - 26.0 mmol/L [facility] LABORATORY BE Art -9.4 (L) -3.0 - 3.0 mmol/L [facility] LABORATORY Hgb Blood Gas 12.4 (L) 13.7 - 16.5 gm/dL [facility] LABORATORY O2HB Art 94.7 94.0 - 97.0 % [facility] LABORATORY COHB Art 0.2 % [facility] LABORATORY Comment: Nonsmokers: 0.5-1.5% COHB Smokers: Variable, but usually less than 10% Toxic: 20-30% COHB Lethal: Greater than 60% COHB METHB Art 0.6 <=1.5 % [facility] LABORATORY Na Whole Blood 141 135 - 145 mmol/L [facility] K Whole Blood 3.5 3.5 - 5.0 mmol/L [facility] Comment: Please note: Patients with WBC >100,000 may have falsely elevated Potassium levels. Contact the Clinical Chemistry L aboratory if there are any questions. ICa Whole Blood 1.03 (L) 1.15 - 1.33 mmol/L [facility] LABORATORY Comment: Note: ??Total bilirubin higher than 20 m g/dL may lead to falsely low ionized calcium. CL Whole Blood 109 (H) 98 - 107 mmol/L [facility] Gluc Whole Bld 315 (H) 65 - 199 mg/dL [facility] LABORATORY Comment: Diabetes: >=200 mg/dL plus symp toms. Lactate WB 7.6 (Critical) 0.5 - 2.2 mmol/L [facility] LABORATORY Comment: Noted by [employer]. FIO2 Art 40 % [facility] LABORATORY PF Ratio Art 240 [facility] LABORATORY Specimen Anatomical Collection Method Collection Time Receive d Time (Source) Location / / Volume Laterality Blood specimen Arterial Draw / 07/08/2017 12:09 2016 5:31 (specimen) Unknown AM EST AM EST Resulting Agency Comment Spec In Lab Samy Maldonado MD CHEMISTRY ORDERABLES Performing Organization Address City/State/[place] [address] (ABNORMAL) POCT Glucose (07/07/2017 10:56 PM EST) P athologist Signature POC Glucose 292 (H) 65 - 199 [facility] mg/dL [facility] LABORATORY Comment: Supplemental ranges: [...] City/[facility]/[place] [address] (ABNORMAL) BLOOD GAS 2 ARTERIAL (07/07/2017 10:04 PM EST) P athologist Signature pH Art 7.22 7.35 - [facility] (Critical) 7.45 [facility] LABORATORY Comment: Noted by [employer]. pCO2 Art 42 35 - 45 mmHg [facility] LABORATORY pO2 Art 94 85 - 104 mmHg [facility] LABORATORY HCO3 Art 16.9 (L) 20.0 - 26.0 mmol/L [facility] LABORATORY BE Art -10.7 (L) -3.0 - 3.0 mmol/L [facility] LABORATORY Hgb Blood Gas 13.0 (L) 13.7 - 16.5 gm/dL [facility] LABORATORY O2HB Art 93.8 (L) 94.0 - 97.0 % [facility] LABORATORY COHB Art 0.7 % [facility] LABORATORY Comment: Nonsmokers: 0.5-1.5% COHB Smokers: Variable, but usually less than 10% Toxic: 20-30% COHB Lethal: Greater than 60% COHB METHB Art 0.7 <=1.5 % [facility] LABORATORY Na Whole Blood 140 135 - 145 mmol/L [facility] LABORATORY K Whole Blood 3.3 (L) 3.5 - 5.0 mmol/L [facility] Comment: Please note: Patients with WBC >100,000 may have falsely elevated Potassium levels. Contact the Clinical Chemistry L aboratory if there are any questions. ICa Whole Blood 1.07 (L) 1.15 - 1.33 mmol/L [facility] LABORAT[facility] Comment: Note: ??Total bilirubin higher than 20 m g/dL may lead to falsely low ionized calcium. CL Whole Blood 107 98 - 107 mmol/L [facility] LABOR[facility] Gluc Whole Bld 304 (H) 65 - 199 mg/dL [facility] LABORATORY Comment: Diabetes: >=200 mg/dL plus symp toms. Lactate WB 8.2 (Critical) 0.5 - 2.2 mmol/L [facility] LABOR[facility] Comment: Noted by [employer]. FIO2 Art 40 % [facility] LABORAT[facility] PF Ratio Art 235 [facility] LABORATORY Specimen Anatomical Collection Method Collection Time Receive d Time (Source) Location / / Volume Laterality Blood specimen 07/07/2017 10:04 7 (specimen) PM EST 10:04 PM EST Daphne Shahid MD CHEMISTRY ORDERABLES Performing Organization Address City/[facility]/[place] [address] (ABNORMAL) Hemoglobin (07/07/2017 10:00 PM EST) athologist Signature Hemoglobin 12.8 (L) 13.7 - [facility] 16.5 gm/dL [facility] LABORATORY Specimen Anatomical Collection Method Collection Time Receive d Time (Source) Location / / Volume Laterality Blood specimen 07/07/2017 10:00 7 (specimen) PM EST 10:13 PM EST Resulting Agency Comment Spec In Lab Yuan Webber MD HEMATOLOGY ORDERABLES Performing Organization Address City/[facility] [place] [address] (ABNORMAL) Potassium (07/07/2017 10:00 PM EST) athologist Signature Potassium 3.4 (L) 3.5 - 5.0 [facility] mmol/L [facility] LABORATORY Comment: Please note: [...] Webber MD CHEMISTRY ORDERABLES Performing Organization Address City/[facility]/[place]IP [facility] [place] [address] (ABNORMAL) POCT Glucose (07/07/2017 8:49 PM EST) athologist Signature POC Glucose 241 (H) 65 - 199 [facility] LABORATORY Comment: Supplemental ranges: [...] City/[facility]/[place] [address] Prepare Albumin 5% in 250 mL (07/07/2017 8:03 PM EST) P athologist Signature Dispensed? Yes [facility] LABORATORY Specimen Anatomical Collection Method Collection Time Receive d Time (Source) Location / / Volume Laterality Blood specimen No Charge / 07/07/2017 8:03 PM 017 8:04 (specimen) Unknown EST PM EST Resulting Agency Comment Spec In Lab Michael BROWN BLOOD BANK ORDERABLES Performing Organization Address [facility] [place] [address] EKG 12 Lead (07/07/2017 7:17 PM EST) Component Value Ref Range Test Analysis Performed Pathologis t Method Time At Signature Ventricular rate 75 BPM MUSE SYSTEM Atrial Rate 75 BPM MUSE SYSTEM P-R Interval 168 ms MUSE SYSTEM QRS Duration 104 ms MUSE SYSTEM Q-T Interval 462 ms MUSE SYSTEM QTC Calculated 515 ms MUSE SYSTEM (Bezet) Calculated P [place] 52 degrees MUSE SYSTEM Calculated R [place] -40 degrees MUSE SYSTEM Calculated T [place] 39 degrees MUSE SYSTEM INTERPRETATION Normal sinus [...] Webber MD ECG ORDERABLES Performing Organization Address City/[facility]/ZIP Code Phon e Number MUSE SYSTEM XR [...] Art 7.21 7.35 - [facility] (Critical) [address] [place] [id number] LABORATORY Comment: Noted by [employer]. pCO2 Art 50 (H) 35 - 45 mmHg [facility] LABORATORY pO2 Art 238 (H) 85 - 104 mmHg [facility] LABORATORY HCO3 Art 19.8 (L) 20.0 - 26.0 mmol/L [facility] LABORATORY BE Art -8.1 (L) -3.0 - 3.0 mmol/L [facility] LABORATORY Hgb Blood Gas 12.8 (L) 13.7 - 16.5 gm/dL [facility] LABORATORY O2HB Art 97.5 (H) 94.0 - 97.0 % [facility] LABORATORY COHB Art 0.5 % [facility] LABORATORY Comment: Nonsmokers: 0.5-1.5% COHB Smokers: Variable, but usually less than 10% Toxic: 20-30% COHB Lethal: Greater than 60% COHB METHB Art 0.7 <=1.5 % [facility] LABORATORY Na Whole Blood 140 135 - 145 mmol/L [facility] LABORATORY K Whole Blood 3.0 (Critical) 3.5 - 5.0 mmol/L [facility] LABORATORY Comment: Noted by [employer]. Please note: Patients with WBC >100,000 may have falsely elevated Potassium levels. Contact the Clinical Chemistry L aboratory if there are any questions. ICa Whole Blood 1.07 (L) 1.15 - 1.33 mmol/L [facility] LABORATORY Comment: Note: ??Total bilirubin higher than 20 m g/dL may lead to falsely low ionized calcium. CL Whole Blood 107 98 - 107 mmol/L [facility]OR[facility] Gluc Whole Bld 270 (H) 65 - 199 mg/dL [facility] LABORATORY Comment: Diabetes: >=200 mg/dL plus symp toms. Lactate WB 4.9 (Critical) 0.5 - 2.2 mmol/L [facility] LABORATORY Comment: Noted by [employer]. FIO2 Art 100 % [facility] LABORATORY PF Ratio Art 238 [facility] LABORATORY Specimen Anatomical Collection Method Collection Time Receive d Time (Source) Location / / Volume Laterality Blood specimen 07/07/2017 6:57 PM 017 6:57 (specimen) EST PM EST Daphne Shahid MD CHEMISTRY ORDERABLES Performing Organization Address City/State/[place] [address] (ABNORMAL) BLOOD GAS 2 ARTERIAL (07/07/2017 5:31 PM EST) athologist Signature pH Art 7.29 7.35 - [facility] (Critical) 7.45 [facility] LABORATORY Comment: Noted by [employer]. pCO2 Art 48 (H) 35 - 45 mmHg [facility] LABORATORY pO2 Art 137 (H) 85 - 104 mmHg [facility] LABORATORY HCO3 Art 22.4 20.0 - 26.0 mmol/L [facility] LABORATORY BE Art -4.3 (L) -3.0 - 3.0 mmol/L [facility] LABORATORY Hgb Blood Gas 10.0 (L) 13.7 - 16.5 gm/dL [facility] LABORATORY O2HB Art 97.3 (H) 94.0 - 97.0 % [facility] LABORATORY COHB Art 0.3 % [facility] LABORATORY Comment: Nonsmokers: 0.5-1.5% COHB Smokers: Variable, but usually less than 10% Toxic: 20-30% COHB Lethal: Greater than 60% COHB METHB Art 0.3 <=1.5 % [facility] LABORATORY Na Whole Blood 132 (L) 135 - 145 mmol/L [facility] LABORATORY K Whole Blood 4.0 3.5 - 5.0 mmol/L [facility] LABOR[facility]ORY Comment: Please note: Patients with WBC >100,000 may have falsely elevated Potassium levels. Contact the Clinical Chemistry L aboratory if there are any questions. ICa Whole Blood 1.14 (L) 1.15 - 1.33 mmol/L [facility] LABORATORY Comment: Note: ??Total bilirubin higher than 20 m g/dL may lead to falsely low ionized calcium. CL Whole Blood 105 98 - 107 mmol/L [facility] Gluc Whole Bld 293 (H) 65 - 199 mg/dL [facility] LABORATORY Comment: Diabetes: >=200 mg/dL plus symp toms. Lactate WB 3.1 (H) 0.5 - 2.2 mmol/L [facility] LABORATORY Specimen Anatomical Collection Method Collection Time Receive d Time (Source) Location / / Volume Laterality Blood specimen 07/07/2017 5:31 PM 017 5:31 (specimen) EST PM EST Daphne Shahid MD CHEMISTRY ORDERABLES Performing Organization Address City/[facility] Phon e Number [address] Fibrinogen (07/07/2017 5:30 PM EST) athologist Signature Fibrinogen 224 180 - 510 [facility] mg/dL [facility] LABORATORY Comment: Called by: [facility], Read back by: Monica Campos on/OR16, [...] Perez MD HEMATOLOGY ORDERABLES Performing Organization Address City/[facility] Phon e Number [address] APTT (07/07/2017 5:30 PM EST) P athologist Signature PTT 30 25 - [address] [facility] LABORATORY Comment: The recommended therapeutic range for fu ll dose, unfractionated heparin at [facility] is 80 ? 114 [...] Perez MD HEMATOLOGY ORDERABLES Performing Organization Address City/[facility]/[place] [address] (ABNORMAL) Prothrombin Time (07/07/2017 [...] Perez MD HEMATOLOGY ORDERABLES Performing Organization Address City/[facility]/[place] [address] (ABNORMAL) Hemogram (07/07/2017 5:30 PM EST) P athologist Signature WBC 19.6 (H) 4.0 - 9.5 [facility] x10(3)/[facility] LABORATORY RBC 3.08 (L) 4.58 - [facility] 5.[address] [facility] x10(6)/[facility] LABORATORY Hemoglobin 9.2 (L) 13.7 - [facility] 16.5 gm/dL [facility] LABORATORY Hematocrit 28.0 (L) 40.5 - [facility] 48.5 % [facility] LABORATORY Comment: This result has been called to MONICA WEINSTEIN LUISA by DONALD GROSSMAN on 07 07 2017 at 1759, and has been read back. MCV 90.9 82.9 - 93.[address] [facility] LABORATORY MCH 29.9 27.5 - 32.[address] [facility] LABORATORY MCHC 32.9 32.0 - 35.7 gm/dL [facility] LABORATORY Platelets 155 145 - 357 x10(3)/[facility] LABORATORY RDWSD 46.5 (H) 36.0 - 45.[address] [facility] LABORATORY RDWCV 14.1 (H) 11.4 - 13.8 % [facility] LABORATORY MPV 9.5 7.6 - 12.9 fL [facility] LABORATORY nRBC % Auto 0.0 % [facility] LABORATORY nRBC Abs Auto 0.000 0.000 - 0.000 x10(3)/[facility] LABORATORY Specimen Anatomical Collection Method Collection Time Receive d Time (Source) Location / / Volume Laterality Blood specimen 07/07/2017 5:30 PM 017 5:34 (specimen) EST PM EST Resulting Agency Comment Spec In Lab Yifan Perez MD HEMATOLOGY ORDERABLES Performing Organization Address City/[facility]/ZIP [facility] Phon [place] Number [address] Prepare Platelets, Apheresis (07/07/2017 5:00 PM EST) P athologist Signature Dispensed? Yes [facility] LABORATORY Specimen Anatomical Collection Method Collection Time Receive d Time (Source) Location / / Volume Laterality Blood specimen 07/07/2017 5:00 PM 017 4:58 (specimen) EST PM EST Daphne Shahid MD BLOOD BANK ORDERABLES Performing Organization Address City/[facility]/ZIP [facility] Phon e Number [address] Platelet count (07/07/2017 4:55 PM EST) P athologist Signature Platelets 177 145 - 357 [facility] x10(3)/[facility] LABORATORY Plat Immature 1.5 0.0 - 7.4 [facility] LABORATORY Comment: Limitation of the Immature Platelet Frac tion (IPF)-May be less reliable when the platelet count is less than [id number]/u L due to statistical imprecision. The IPF [...] in a decreased state of production. References: [employer] The Clinical Value of the Immature Platelet Fraction (IPF) in Cell Recovery Document Number 10-1143 12/2010 [employer] The Role of the Imm ature [...] Organization Address City/State/[place] [address] (ABNORMAL) Hemoglobin and Hematocrit, blood (07/07/2017 4:55 PM EST) athologist Signature Hemoglobin 9.1 (L) 13.7 - 16.5 [facility] gm/dL [facility] LABORATORY Comment: This result has been called to MALKA MORAN by DONALD GROSSMAN on 07 07 2017 at 1734, and has been read back. Hematocrit 26.6 (L) 40.5 - 48.5 % [facility] LABORATORY Comment: This result has been [...] Organization Address City/State/[place] [address] (ABNORMAL) BLOOD GAS 2 ARTERIAL (07/07/2017 4:38 PM EST) Analysis Performed At Patho logist Time Signature pH Art 7.37 7.35 - [facility] 7.45 [facility] LABORATORY pCO2 Art 44 35 - 45 [facility] mmHg [facility] LABORATORY pO2 Art 322 (H) 85 - 104 [facility] LABORATORY HCO3 Art 24.9 20.0 - [facility] 26.[address] [facility] mmol/L [facility] LABORATORY BE Art -0.4 -3.0 - 3.0 [facility] mmol/L [facility] LABORATORY Hgb Blood Gas 10.1 (L) 13.7 - [facility] 16.5 gm/dL [facility] LABORATORY O2HB Art 98.7 (H) 94.0 - [facility] 97.0 % [facility] LABORATORY COHB Art 0.1 % [facility] LABORATORY Comment: Nonsmokers: 0.5-1.5% COHB Smokers: Variable, but usually less than 10% Toxic: 20-30% COHB Lethal: Greater than 60% COHB METHB Art 0.3 <=1.5 % [facility] LABORATORY Na Whole Blood 130 (L) 135 - 145 mmol/L [facility] LABORATORY K Whole Blood 5.7 (H) 3.5 - 5.0 mmol/L [facility] LABORATORY Comment: Please note: Patients with WBC >100,000 may have falsely elevated Potassium levels. Contact the Clinical Chemistry L aboratory if there are any questions. ICa Whole Blood 0.89 (Critical) 1.15 - 1.33 mmol/L [facility] Comment: Noted by [employer]ounter [employer]. Note: ??Total bilirubin higher than 20 m g/dL may lead to falsely low ionized calcium. CL Whole Blood 101 98 - 107 mmol/L [facility] Gluc Whole Bld 295 (H) 65 - 199 mg/dL [facility] Comment: Diabetes: >=200 mg/dL plus symp toms. Lactate WB 1.7 0.5 - 2.2 mmol/L [facility] Specimen Anatomical Collection Method Collection Time Receive d Time (Source) Location / / Volume Laterality Blood specimen 07/07/2017 4:38 PM 017 4:38 (specimen) EST PM EST Daphne Shahid MD CHEMISTRY ORDERABLES Performing Organization Address City/State/[place] [address] (ABNORMAL) BLOOD GAS 2 VENOUS (07/07/2017 4:06 PM EST) Analysis Performed At Patho logist Time Signature pH Cody 7.31 (L) 7.32 - [facility] 7.42 [facility] pCO2 Cody 47 41 - 51 [facility]ORY pO2 Cody 53 (H) 25 - 40 [facility]ORY HCO3 Cody 22.7 mmol/L [facility] BE Cody -3.7 mmol/L [facility] Hgb Blood Gas 10.2 (L) 13.7 - [facility] 16.5 gm/dL [facility] O2HB Cody 81.0 % [facility] COHB Cody 1.0 % [facility] Comment: Nonsmokers: 0.5-1.5% COHB Smokers: Variable, but usually less than 10% Toxic: 20-30% COHB Lethal: Greater than 60% COHB METHB Cody 0.3 <=1.5 % [facility] Na Whole Blood 132 (L) 135 - 145 mmol/L [facility] K Whole Blood 5.3 (H) 3.5 - 5.0 mmol/L [facility] Comment: Please note: Patients with WBC >100,000 may have falsely elevated Potassium levels. Contact the Clinical Chemistry L aboratory if there are any questions. ICa Whole Blood 0.90 (Critical) 1.15 - 1.33 mmol/L [facility] Comment: Noted by [employer]. Note: ??Total bilirubin higher than 20 m g/dL may lead to falsely low ionized calcium. CL Whole Blood 100 98 - 107 mmol/L [facility] Gluc Whole Bld 231 (H) 65 - 199 mg/dL [facility] Comment: Diabetes: >=200 mg/dL plus symp toms Lactate WB 1.1 0.5 - 2.2 mmol/L [facility] BGas Source Venous [facility] Specimen Anatomical Collection Method Collection Time Receive d Time (Source) Location / / Volume Laterality Blood specimen 07/07/2017 4:06 PM 017 4:06 (specimen) EST PM EST Daphne Shahid MD CHEMISTRY ORDERABLES Performing Organization Address City/State/[place] [address] (ABNORMAL) BLOOD GAS 2 ARTERIAL (07/07/2017 4:05 PM EST) Analysis Performed At Patho logist Time Signature pH Art 7.36 7.35 - [facility] 7.45 [facility] pCO2 Art 40 35 - 45 [facility] pO2 Art 282 (H) 85 - 104 [facility] HCO3 Art 22.1 20.0 - [facility] 26.[address] [facility] mmol/L [facility] BE Art -3.4 (L) -3.0 - 3.0 [facility] mmol/L [facility] Hgb Blood Gas 10.2 (L) 13.7 - [facility] 16.5 gm/dL [facility] O2HB Art 98.4 (H) 94.0 - [facility] 97.0 % [facility] COHB Art 0.3 % [facility] Comment: Nonsmokers: 0.5-1.5% COHB Smokers: Variable, but usually less than 10% Toxic: 20-30% COHB Lethal: Greater than 60% COHB METHB Art 0.3 <=1.5 % [facility] Na Whole Blood 131 (L) 135 - 145 mmol/L [facility] K Whole Blood 5.4 (H) 3.5 - 5.0 mmol/L [facility] Comment: Please note: Patients with WBC >100,000 may have falsely elevated Potassium levels. Contact the Clinical Chemistry L aboratory if there are any questions. ICa Whole Blood 0.86 (Critical) 1.15 - 1.33 mmol/L [facility] Comment: Noted by [employer]. Note: ??Total bilirubin higher than 20 m g/dL may lead to falsely low ionized calcium. CL Whole Blood 101 98 - 107 mmol/L [facility] Gluc Whole Bld 260 (H) 65 - 199 mg/dL [facility] Comment: Diabetes: >=200 mg/dL plus symp toms. Lactate WB 1.4 0.5 - 2.2 mmol/L [facility] Specimen Anatomical Collection Method Collection Time Receive d Time (Source) Location / / Volume Laterality Blood specimen 07/07/2017 4:05 PM 017 4:05 (specimen) EST PM EST Daphne Shahid MD CHEMISTRY ORDERABLES Performing Organization Address City/State/[place] [address] (ABNORMAL) BLOOD GAS 2 ARTERIAL (07/07/2017 2:29 PM EST) Analysis Performed At Patho logist Time Signature pH Art 7.43 7.35 - [facility] 7.45 [facility] pCO2 Art 36 35 - 45 [facility] mmHg [facility] pO2 Art 221 (H) 85 - 104 [facility] HCO3 Art 23.2 20.0 - [facility] 26.[address] [facility] mmol/L [facility] BE Art -1.2 -3.0 - 3.0 [facility] mmol/L [facility] Hgb Blood Gas 13.9 13.7 - [facility] 16.5 gm/dL [facility] O2HB Art 97.8 (H) 94.0 - [facility] 97.0 % [facility] COHB Art 1.1 % [facility] Comment: Nonsmokers: 0.5-1.5% COHB Smokers: Variable, but usually less than 10% Toxic: 20-30% COHB Lethal: Greater than 60% COHB METHB Art 0.3 <=1.5 % [facility] Na Whole Blood 139 135 - 145 mmol/L [facility] K Whole Blood 4.0 3.5 - 5.0 mmol/L [facility] Comment: Please note: Patients with WBC >100,000 may have falsely elevated Potassium levels. Contact the Clinical Chemistry L aboratory if there are any questions. ICa Whole Blood 1.11 (L) 1.15 - 1.33 mmol/L [facility] Comment: Note: ??Total bilirubin higher than 20 m g/dL may lead to falsely low ionized calcium. CL Whole Blood 104 98 - 107 mmol/L [facility] Gluc Whole Bld 184 65 - 199 mg/dL [facility] Comment: Diabetes: >=200 mg/dL plus symp toms. Lactate WB 1.5 0.5 - 2.2 mmol/L [facility] Specimen Anatomical Collection Method Collection Time Receive d Time (Source) Location / / Volume Laterality Blood specimen 07/07/2017 2:29 PM 017 2:29 (specimen) EST PM EST Daphne Shahid MD CHEMISTRY ORDERABLES Performing Organization Address City/[facility] [place] [address] Prepare Coag Factors (Non-Hemophilia) (07/07/2017 1:25 PM EST) P athologist Signature Dispensed? Yes [facility] Specimen Anatomical Collection Method Collection Time Receive d Time (Source) Location / / Volume Laterality Blood specimen 07/07/2017 1:25 PM 017 1:21 (specimen) EST PM EST Daphne Shahid MD BLOOD BANK ORDERABLES Performing Organization Address City/[facility] [place] [address] Prepare RBC (07/07/2017 1:10 PM EST) P athologist Signature Dispensed? Yes [facility] Specimen Anatomical Collection Method Collection Time Receive d Time (Source) Location / / Volume Laterality Blood specimen 07/07/2017 1:10 PM 017 1:05 (specimen) EST PM EST Daphne Shahid MD BLOOD BANK ORDERABLES Performing Organization Address City/[facility]/ZIP Code Phon e Number [address] POCT Glucose (07/07/2017 11:56 AM EST) P athologist Signature POC Glucose 188 65 - 199 [place] mg/dL [facility] Comment: Supplemental ranges: [...] City/[facility]/ZIP Code Phon e Number [address] POCT Glucose (07/07/2017 11:05 AM EST) athologist Signature POC Glucose 168 65 - 199 [place] mg/dL [facility] Comment: Supplemental ranges: <140 mg/dL before meals <180 mg/dL all other times of the day Specimen Anatomical Collection Method Collection Time Receive d Time (Source) Location / / Volume Laterality Blood specimen 07/07/2017 11:05 7 (specimen) AM EST 11:05 AM EST Daphne Shahid MD POINT OF CARE TEST ORDERABLE S Performing Organization Address City/State/[place] [address] POCT Glucose (07/07/2017 10:02 AM EST) P athologist Signature POC Glucose 191 65 - 199 [place] mg/dL [facility] Comment: Supplemental ranges: [...] City/[facility]/ZIP Code Phon e Number [address] POCT Glucose (07/07/2017 7:53 AM EST) P athologist Signature POC Glucose 178 65 - 199 [place] ZHAORYAN mg/dL [facility] Comment: Supplemental ranges: [...] City/[facility]/ZIP Code Phon e Number [address] POCT Glucose (07/07/2017 7:03 AM EST) athologist Signature POC Glucose 188 65 - 199 [place] HZAORYAN mg/dL [facility] Comment: Supplemental ranges: [...] City/[facility]/[place] [address] (ABNORMAL) POCT Glucose (07/07/2017 6:17 AM EST) P athologist Signature POC Glucose 207 (H) 65 - 199 [place] YR[place] mg/dL [facility] Comment: Supplemental ranges: <140 mg/dL before meals <180 mg/dL all other times of the day Specimen Anatomical Collection Method Collection Time Receive d Time (Source) Location / / Volume Laterality Blood specimen 07/07/2017 6:17 AM 017 6:17 (specimen) EST AM EST Daphne Shahid MD POINT OF CARE TEST ORDERABLE S Performing Organization Address City/State/ZIP Code Phon e Number [address] Differential, Automated (07/07/2017 5:15 AM EST) P athologist Signature Neutrophils % 69.7 % [facility] Neutr Abs (ANC) 5.32 1.70 - [facility] 6.[address] [facility] x10(3)/[facility] LABORATORY Lymphocytes % 16.3 % [facility] Lymphocytes Abs 1.2 0.9 - 3.2 [facility] x10(3)/[facility] LABORATORY Monocytes % 10.5 % [facility] Monocyte Abs 0.8 0.3 - 0.9 [facility] x10(3)/[facility] LABORATORY Eosinophils % 2.5 % [facility] Eosinophils Abs 0.2 0.0 - 0.4 [facility] x10(3)/[facility] LABORATORY Basophils % 0.7 % [facility] Basophils Abs 0.0 0.0 - 0.1 [facility] x10(3)/[facility] LABORATORY Immature Gran % 0.30 % ST [...] Melisa Gran Abs 0.02 0.00 - 0.04 x10(3)/[facility] Specimen Anatomical Collection Method Collection Time Receive d Time (Source) Location / / Volume Laterality Blood specimen 07/07/2017 5:15 AM 017 5:34 (specimen) EST AM EST Resulting Agency Comment Spec In Lab Daphne Shahid MD HEMATOLOGY ORDERABLES Performing Organization Address City/State/ZIP Code Phon e Number [address] (ABNORMAL) Hemogram (07/07/2017 5:15 AM EST) Analysis Performed At Patho logist Time Signature WBC 7.6 4.0 - 9.5 [facility] x10(3)/[facility] LABORATORY RBC 4.82 4.58 - [place] 5.[address] [facility] x10(6)/[facility] LABORATORY Hemoglobin 14.4 13.7 - [facility] 16[facility] gm/dL [facility] Hematocrit 42.1 40.5 - [facility] 48.5 % [facility] MCV 87.3 82.9 - [facility] 93.1 [facility] LABORATORY MCH 29.9 27.5 - [facility] 32.1 pg [facility] MCHC 34.2 32.0 - [facility] gm/dL [facility] Platelets 188 145 - 357 [facility] x10(3)/[facility] LABORATORY RDWSD 45.1 (H) 36.0 - [facility] 45.0 [facility] LABORATORY RDWCV 14.3 (H) 11.4 - [facility] 13.8 % [facility]ORY MPV 9.4 7.6 - 12.9 [facility] LABORATORY nRBC % Auto 0.0 % [facility] nRBC Abs Auto 0.000 0.000 - [facility] 0.[address] [facility] x10(3)/[facility] LABORATORY Specimen Anatomical Collection Method Collection Time Receive d Time (Source) Location / / Volume Laterality Blood specimen 07/07/2017 5:15 AM 017 5:34 (specimen) EST AM EST Resulting Agency Comment Spec In Lab Daphne Shahid MD HEMATOLOGY ORDERABLES Performing Organization Address City/State/[place] [address] (ABNORMAL) APTT (07/07/2017 5:15 AM EST) P athologist Signature PTT 69 (H) 25 - [address] [facility] Comment: The recommended therapeutic range for fu ll dose, unfractionated [place] [facility] [place] 80 ? 114 [...] Shahid MD HEMATOLOGY ORDERABLES Performing Organization Address City/[facility]/ZIP Code Phon e Number [address] Magnesium (07/07/2017 5:15 AM EST) athologist Signature Magnesium 0.94 0.69 - 1.07 [facility] mmol/L [facility] Specimen Anatomical Collection Method Collection Time Receive d Time (Source) Location / / Volume Laterality Blood specimen 07/07/2017 5:15 AM 017 5:34 (specimen) EST AM EST Resulting Agency Comment Spec In Lab Daphne Shahid MD CHEMISTRY ORDERABLES Performing Organization Address City/[facility]/[place] [address] (ABNORMAL) Basic Metabolic Panel (non-fasting) (07/07/2017 5:15 AM EST) athologist Signature Glucose Lvl 203 (H) 65 - 199 [facility] mg/dL [facility] Comment: Diabetes: >=200 mg/dL plus symp toms BUN 15 10 - 20 mg/dL [facility] Creatinine 1.09 0.80 - 1.50 [...] 107 mmol/L [facility] CO2 26 22 - 31 mmol/L [facility] Anion Gap 14 5 - 15 mmol/L [facility] [...] in patients with acute kidney failure. [email or web address] Specimen Anatomical Collection Method Collection Time Receive d Time (Source) Location / / Volume Laterality Blood specimen 07/07/2017 5:15 AM 017 5:34 (specimen) EST AM EST Resulting Agency Comment Spec In Lab Daphne Shahid MD CHEMISTRY ORDERABLES Performing Organization Address City/State/[place] [address] (ABNORMAL) Cardiac Enzymes (LEB/CGP) (07/07/2017 5:15 AM EST) P athologist Signature Troponin-T 2.07 (H) 0.00 - [facility] 0.00 ng/mL [facility] Comment: The 99th [...] additional sample may be indicated. Reference: Third Wagram Definition of Myocardial Infarction. Journal of the [employer] [employer] 2012;60:1581-98 CK, Total 88 0 - 200 unit/L [facility] Specimen Anatomical Collection Method Collection Time Receive d Time (Source) Location / / Volume Laterality Blood specimen 07/07/2017 5:15 AM 017 5:34 (specimen) EST AM EST Resulting Agency Comment Spec In Lab Daphne Shahid MD CHEMISTRY ORDERABLES Performing Organization Address City/[facility]/ZIP Code Phon e Number [address] POCT Glucose (07/07/2017 5:01 AM EST) athologist Signature POC Glucose 182 65 - 199 [facility] mg/dL [facility] Comment: Supplemental ranges: [...] City/[facility]/ZIP Code Phon e Number [address] POCT Glucose (07/07/2017 4:08 AM EST) athologist Signature POC Glucose 199 65 - 199 [facility] mg/dL [facility] Comment: Supplemental ranges: [...] City/[facility]/[place] [address] POCT Glucose (07/07/2017 3:03 AM EST) athologist Signature POC Glucose 188 65 - 199 [facility] mg/dL [facility] Comment: Supplemental ranges: <140 mg/dL before meals <180 mg/dL all other times of the day Specimen Anatomical Collection Method Collection Time Receive d Time (Source) Location / / Volume Laterality Blood specimen 07/07/2017 3:03 AM 017 3:03 (specimen) EST AM EST Daphne Shahid MD POINT OF CARE TEST ORDERABLE S Performing Organization Address City/State/[place] [address] (ABNORMAL) POCT Glucose (07/07/2017 2:08 AM EST) athologist Signature POC Glucose 200 (H) 65 - 199 [facility] mg/dL [facility] Comment: Supplemental ranges: <140 mg/dL before meals <180 mg/dL all other times of the day Specimen Anatomical Collection Method Collection Time Receive d Time (Source) Location / / Volume Laterality Blood specimen 07/07/2017 2:08 AM 017 2:08 (specimen) EST AM EST Daphne Shahid MD POINT OF CARE TEST ORDERABLE S Performing Organization Address City/State/[place] [address] (ABNORMAL) POCT Glucose (07/07/2017 1:31 AM EST) athologist Signature POC Glucose 209 (H) 65 - 199 [facility] mg/dL [facility] Comment: Supplemental ranges: <140 mg/dL before meals <180 mg/dL all other times of the day Specimen Anatomical Collection Method Collection Time Receive d Time (Source) Location / / Volume Laterality Blood specimen 07/07/2017 1:31 AM 017 1:31 (specimen) EST AM EST Daphne Shahid MD POINT OF CARE TEST ORDERABLE S Performing Organization Address City/State/[place] [address] XR Chest PA or [...] Signature POC Glucose 161 65 - 199 [facility] mg/dL [facility] Comment: Supplemental ranges: <140 mg/dL before meals <180 mg/dL all other times of the day Specimen Anatomical Collection Method Collection Time Receive d Time (Source) Location / / Volume Laterality Blood specimen 07/07/2017 12:07 7 (specimen) AM EST 12:07 AM EST Daphne Shahid MD POINT OF CARE TEST ORDERABLE S Performing Organization Address City/State/[place] [address] (ABNORMAL) APTT (07/07/2017 12:00 AM EST) athologist Signature PTT 103 (H) 25 - [address] [facility] Comment: The recommended therapeutic range for fu ll dose, unfractionated heparin [place] [facility] [place] [place] is 80 ? 114 [...] Shahid MD HEMATOLOGY ORDERABLES Performing Organization Address City/[facility]/ZIP Code Phon e Number [address] POCT Glucose (07/06/2017 9:55 PM EST) athologist Signature POC Glucose 109 65 - 199 [facility] mg/dL [facility] Comment: Supplemental ranges: [...] City/[facility]/ZIP Code Phon e Number [address] POCT Glucose (07/06/2017 9:04 PM EST) athologist Signature POC Glucose 120 65 - 199 [facility] mg/dL [facility] Comment: Supplemental ranges: <140 mg/dL before meals <180 mg/dL all other times of the day Specimen Anatomical Collection Method Collection Time Receive d Time (Source) Location / / Volume Laterality Blood specimen 07/06/2017 9:04 PM 017 9:04 (specimen) EST PM EST Daphne Shahid MD POINT OF CARE TEST ORDERABLE S Performing Organization Address City/State/ZIP Code Phon e Number [address] POCT Glucose (07/06/2017 7:45 PM EST) athologist Signature POC Glucose 158 65 - 199 [place] mg/dL [facility] Comment: Supplemental ranges: [...] City/[facility]/ZIP Code Phon e Number [address] Potassium (07/06/2017 7:40 PM EST) athologist [facility] Potassium 3.9 3.5 - 5.0 [facility] mmol/L [facility] Comment: Please note: [...] Shahid MD CHEMISTRY ORDERABLES Performing Organization Address City/[facility]/[place] [address] (ABNORMAL) Cardiac Enzymes (LEB/CGP) (07/06/2017 7:40 PM EST) athologist Signature Troponin-T 2.27 (H) 0.00 - [place] DAV[place] 0.00 ng/mL [facility] Comment: The 99th [...] additional sample may be indicated. Reference: Third Wagram Definition of Myocardial Infarction. Journal of the [employer] 2012;60:1581-98 CK, Total 93 0 - 200 unit/L [facility] Specimen Anatomical Collection Method Collection Time Receive d Time (Source) Location / / Volume Laterality Blood specimen 07/06/2017 7:40 PM 017 7:52 (specimen) EST PM EST Resulting Agency Comment Spec In Lab Daphne Shahid MD CHEMISTRY ORDERABLES Performing Organization Address City/State/[place] [address] (ABNORMAL) POCT Glucose (07/06/2017 7:13 PM EST) P athologist Signature POC Glucose 200 (H) 65 - 199 [facility] mg/dL [facility] Comment: Supplemental ranges: <140 mg/dL before meals <180 mg/dL all other times of the day Specimen Anatomical Collection Method Collection Time Receive d Time (Source) Location / / Volume Laterality Blood specimen 07/06/2017 7:13 PM 017 7:13 (specimen) EST PM EST Daphne Shahid MD POINT OF CARE TEST ORDERABLE S Performing Organization Address City/State/[place] [address] (ABNORMAL) APTT (07/06/2017 6:15 PM EST) athologist Signature PTT 94 (H) 25 - [address] [facility] Comment: The recommended therapeutic range for fu ll dose, unfractionated heparin [place] [facility] [place] [place] 80 ? 114 [...] Address City/State/ZIP Code Phon e Number [address] (ABNORMAL) POCT Glucose (07/06/2017 6:03 PM EST) athologist Signature POC Glucose 236 (H) 65 - 199 [facility]/dL [facility] Comment: Supplemental ranges: [...] City/[facility]/[place] [address] (ABNORMAL) POCT Glucose (07/06/2017 5:01 PM EST) athologist Signature POC Glucose 235 (H) 65 - 199 [facility] mg/dL [facility] [facility] Comment: Supplemental ranges: <140 mg/dL before meals <180 mg/dL all other times of the day Specimen Anatomical Collection Method Collection Time Receive d Time (Source) Location / / Volume Laterality Blood specimen 07/06/2017 5:01 PM 017 5:01 (specimen) EST PM EST Daphne Shahid MD POINT OF CARE TEST ORDERABLE S Performing Organization Address City/State/ZIP Code Ph[place] [address] (ABNORMAL) POCT Glucose (07/06/2017 4:06 PM EST) athologist Signature POC Glucose 202 (H) 65 - 199 [facility] mg/dL [facility] Comment: Supplemental ranges: <140 mg/dL before meals <180 mg/dL all other times of the day Specimen Anatomical Collection Method Collection Time Receive d Time (Source) Location / / Volume Laterality Blood specimen 07/06/2017 4:06 PM 017 4:06 (specimen) EST PM EST Daphne Shahid MD POINT OF CARE TEST ORDERABLE S Performing Organization Address City/State/ZIP Code Phon e Number [address] POCT Glucose (07/06/2017 2:59 PM EST) athologist Signature POC Glucose 178 65 - 199 [facility] Comment: Supplemental ranges: <140 mg/dL before meals <180 mg/dL all other times of the day Specimen Anatomical Collection Method Collection Time Receive d Time (Source) Location / / Volume Laterality Blood specimen 07/06/2017 2:59 PM 017 2:59 (specimen) EST PM EST Daphne Shahid MD POINT OF CARE TEST ORDERABLE S Performing Organization Address City/State/[place] [address] (ABNORMAL) Cardiac Enzymes (LEB/CGP) (07/06/2017 2:10 PM EST) athologist Signature Troponin-T 2.34 (H) 0.00 - [place] 0.00 ng/mL [facility] Comment: The 99th [...] additional sample may be indicated. Reference: Third Wagram Definition of Myocardial Infarction. Journal of the [place] [employer] 2012;60:1581-98 CK, Total 101 0 - 200 unit/L [facility] Specimen Anatomical Collection Method Collection Time Receive d Time (Source) Location / / Volume Laterality Blood specimen 07/06/2017 2:10 PM 017 2:26 (specimen) EST PM EST Resulting Agency Comment Spec In Lab Daphne Shahid MD CHEMISTRY ORDERABLES Performing Organization Address City/[facility]/ZIP Code Phon e Number [address] POCT Glucose (07/06/2017 2:08 PM EST) athologist Signature POC Glucose 192 65 - 199 [facility]/dL [facility] Comment: Supplemental ranges: <140 mg/dL before meals <180 mg/dL all other times of the day Specimen Anatomical Collection Method Collection Time Receive d Time (Source) Location / / Volume Laterality Blood specimen 07/06/2017 2:08 PM 017 2:08 (specimen) EST PM EST Daphne Shahid MD POINT OF CARE TEST ORDERABLE S Performing Organization Address City/[facility]/ZIP [facility] Phon e Number [address] POCT Glucose (07/06/2017 1:04 PM EST) athologist Signature POC Glucose 162 65 - 199 [facility]/dL [facility] Comment: Supplemental ranges: <140 mg/dL before meals <180 mg/dL all other times of the day Specimen Anatomical Collection Method Collection Time Receive d Time (Source) Location / / Volume Laterality Blood specimen 07/06/2017 1:04 PM 017 1:04 (specimen) EST PM EST Daphne Shahid MD POINT OF CARE TEST ORDERABLE S Performing Organization Address City/State/[place] [address] POCT Glucose (07/06/2017 12:05 PM EST) P athologist Signature POC Glucose 196 65 - 199 [facility] mg/dL [facility] Comment: Supplemental ranges: [...] City/[facility]/[place] [address] EKG 12 Lead (07/06/2017 12:00 PM EST) Component Value Ref Range Test Analysis Performed Pathologis t Method Time At Signature Ventricular rate 91 BPM MUSE SYSTEM Atrial Rate 91 BPM MUSE SYSTEM P-R Interval 140 ms MUSE SYSTEM QRS Duration 94 ms MUSE SYSTEM Q-T Interval 394 ms MUSE SYSTEM QTC Calculated 484 ms MUSE SYSTEM (Bezet) Calculated P [place] 36 degrees MUSE SYSTEM Calculated R [place] -19 degrees MUSE SYSTEM Calculated T [place] 104 degrees MUSE SYSTEM INTERPRETATION Normal sinus rhythm MUSE SYSTEM 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) ST & T wave abnormality, consider lateral ischemia Abnormal ECG When compared with ECG of 05-JUL-2017 20:39, No significant change was found Confirmed by MD Luci, Taurus Braun ([id number]) on 07/06/2017 5:07:33 PM Specimen Anatomical Collection Method Collection Time Receive d Time (Source) Location / / Volume Laterality 07/06/2017 12:00 07/06/2017 5:07 PM EST PM EST Daphne Shahid MD ECG ORDERABLES Performing Organization Address City/State/ZIP Code Phon e Number MUSE SYSTEM ABORH Recheck Status (07/06/2017 12:00 PM EST) [facility] Method Time Signature ABORH Type Completed [facility] LABORATORY Specimen Anatomical Collection Method Collection Time Receive d Time (Source) Location / / Volume Laterality Blood specimen 07/06/2017 12:00 7 (specimen) PM EST 12:24 PM EST Resulting Agency Comment Spec In Lab Daphne Shahid MD BLOOD BANK ORDERABLES Performing Organization Address City/State/[place] [address] Antibody screen (07/06/2017 12:00 PM EST) [facility] Method Time Signature Ab Screen Negative [facility] LABORATORY Expires at 07/09/2017 [facility] [id number] on: [facility] Specimen Anatomical Collection Method Collection Time Receive d Time (Source) Location / / Volume Laterality Blood specimen 07/06/2017 12:00 7 (specimen) PM EST 12:24 PM EST Resulting Agency Comment Spec In Lab Daphne Shahid MD BLOOD BANK ORDERABLES Performing Organization Address City/State/[place] [address] ABO/Rh Typing (07/06/2017 12:00 [...] Organization Address City/State/[place] [address] Prothrombin Time (07/06/2017 11:24 AM EST) P athologist Signature PT 13.3 11.8 - 14.0 [facility] LABORATORY INR 1.0 0.9 - 1.1 [facility] [...] Shahid MD HEMATOLOGY ORDERABLES Performing Organization Address City/[facility]/ZIP Code Phon e Number [address] (ABNORMAL) APTT (07/06/2017 11:24 AM EST) P athologist Signature PTT 52 (H) 25 - [address] [facility] Comment: The recommended therapeutic range for fu ll dose, unfractionated heparin [place] [facility] is 80 ? 114 [...] Shahid MD HEMATOLOGY ORDERABLES Performing Organization Address City/[facility]/[place] [address] POCT Glucose (07/06/2017 11:02 AM EST) P athologist Signature POC Glucose 187 65 - 199 [facility] mg/dL [facility] Comment: Supplemental ranges: <140 mg/dL before meals <180 mg/dL all other times of the day Specimen Anatomical Collection Method Collection Time Receive d Time (Source) Location / / Volume Laterality Blood specimen 07/06/2017 11:02 7 (specimen) AM EST 11:02 AM EST Daphne Shahid MD POINT OF CARE TEST ORDERABLE S Performing Organization Address City/State/ZIP Code Phon e Number [address] POCT Glucose (07/06/2017 10:18 AM EST) athologist Signature POC Glucose 193 65 - 199 [place] ZHA[place] mg/dL [facility] Comment: Supplemental ranges: [...] City/[facility]/ZIP Code Phon e Number [address] POCT Glucose (07/06/2017 9:25 AM EST) athologist Signature POC Glucose 182 65 - 199 [facility] mg/dL [facility] Comment: Supplemental ranges: [...] City/[facility]/[place] [address] (ABNORMAL) Cardiac Enzymes (LEB/CGP) (07/06/2017 8:10 AM EST) athologist Signature Troponin-T 2.26 (H) 0.00 - [place] [facility] 0.00 ng/mL [facility] Comment: The 99th [...] additional sample may be indicated. Reference: Third Wagram Definition of Myocardial Infarction. Journal of the [place] [employer] 2012;60:1581-98 CK, Total 124 0 - 200 unit/L [facility] Specimen Anatomical Collection Method Collection Time Receive d Time (Source) Location / / Volume Laterality Blood specimen 07/06/2017 8:10 AM 017 8:23 (specimen) EST AM EST Resulting Agency Comment Spec In Lab Daphne Shahid MD CHEMISTRY ORDERABLES Performing Organization Address City/State/ZIP Code Phon e Number [address] Magnesium (07/06/2017 8:10 AM EST) P athologist Signature Magnesium 0.84 0.69 - 1.07 [facility] mmol/L [facility] Specimen Anatomical Collection Method Collection Time Receive d Time (Source) Location / / Volume Laterality Blood specimen 07/06/2017 8:10 AM 017 8:21 (specimen) EST AM EST Resulting Agency Comment Spec In Lab Daphne Shahid MD CHEMISTRY ORDERABLES Performing Organization Address City/[facility]/ZIP Code Phon e Number [address] (ABNORMAL) Basic Metabolic Panel (non-fasting) (07/06/2017 8:10 AM EST) P athologist Signature Glucose Lvl 199 65 - 199 [facility]/dL [facility] Comment: Diabetes: >=200 mg/dL plus symp toms BUN 16 10 - 20 mg/dL [facility] Creatinine 1.04 0.80 - 1.50 [...] estions. Chloride 101 98 - 107 mmol/L [facility] [...] or in patients with acute kidney failure. [email or web address] Specimen Anatomical Collection Method Collection Time Receive d Time (Source) Location / / Volume Laterality Blood specimen 07/06/2017 8:10 AM 017 8:21 (specimen) EST AM EST Resulting Agency Comment Spec In Lab Daphne Shahid MD CHEMISTRY ORDERABLES Performing Organization Address City/State/[place] [address] POCT Glucose (07/06/2017 7:34 AM EST) P athologist Signature POC Glucose 198 65 - 199 [facility] mg/dL [facility] Comment: Supplemental ranges: <140 mg/dL before meals <180 mg/dL all other times of the day Specimen Anatomical Collection Method Collection Time Receive d Time (Source) Location / / Volume Laterality Blood specimen 07/06/2017 7:34 AM 017 7:34 (specimen) EST AM EST Daphne Shahid MD POINT OF CARE TEST ORDERABLE S Performing Organization Address City/State/ZIP Code Phon e Number [address] POCT Glucose (07/06/2017 7:03 AM EST) P athologist Signature POC Glucose 181 65 - 199 [facility] mg/dL [facility] Comment: Supplemental ranges: <140 mg/dL before meals <180 mg/dL all other times of the day Specimen Anatomical Collection Method Collection Time Receive d Time (Source) Location / / Volume Laterality Blood specimen 07/06/2017 7:03 AM 017 7:03 (specimen) EST AM EST Daphne Shahid MD POINT OF CARE TEST ORDERABLE S Performing Organization Address City/State/[place] [address] XR Chest PA or [...] Signature POC Glucose 172 65 - 199 [facility] mg/dL [facility] Comment: Supplemental ranges: <140 mg/dL before meals <180 mg/dL all other times of the day Specimen Anatomical Collection Method Collection Time Receive d Time (Source) Location / / Volume Laterality Blood specimen 07/06/2017 6:21 AM 017 6:21 (specimen) EST AM EST Daphne Shahid MD POINT OF CARE TEST ORDERABLE S Performing Organization Address City/State/[place] [address] POCT Glucose (07/06/2017 5:08 AM EST) athologist Signature POC Glucose 154 65 - 199 [facility] [place] mg/dL [facility] Comment: Supplemental ranges: <140 mg/dL before meals <180 mg/dL all other times of the day Specimen Anatomical Collection Method Collection Time Receive d Time (Source) Location / / Volume Laterality Blood specimen 07/06/2017 5:08 AM 017 5:08 (specimen) EST AM EST Daphne Shahid MD POINT OF CARE TEST ORDERABLE S Performing Organization Address City/State/[place] [address] POCT Glucose (07/06/2017 4:05 AM EST) athologist Signature POC Glucose 142 65 - 199 [facility]/dL [facility] Comment: Supplemental ranges: <140 mg/dL before meals <180 mg/dL all other times of the day Specimen Anatomical Collection Method Collection Time Receive d Time (Source) Location / / Volume Laterality Blood specimen 07/06/2017 4:05 AM 017 4:05 (specimen) EST AM EST Daphne Shahid MD POINT OF CARE TEST ORDERABLE S Performing Organization Address City/[facility] Phon e Number [address] POCT Glucose (07/06/2017 3:00 AM EST) athologist Signature POC Glucose 116 65 - 199 [facility]/dL [facility] Comment: Supplemental ranges: <140 mg/dL before meals <180 mg/dL all other times of the day Specimen Anatomical Collection Method Collection Time Receive d Time (Source) Location / / Volume Laterality Blood specimen 07/06/2017 3:00 AM 017 3:00 (specimen) EST AM EST Daphne Shahid MD POINT OF CARE TEST ORDERABLE S Performing Organization Address City/[facility] [place] [address] Potassium (07/06/2017 2:20 AM EST) athologist Signature Potassium 3.9 3.5 - 5.0 [facility] mmol/L [facility] Comment: Please note: [...] City/State/ZIP Code Phon e Number [place] [id number] Differential, Automated (07/06/2017 2:20 AM EST) P athologist Signature Neutrophils % 72.9 % [facility] Neutr Abs (ANC) 5.53 1.70 - [facility] 6.[address] [facility] x10(3)/[facility] LABORATORY Lymphocytes % 16.4 % [facility] Lymphocytes Abs 1.2 0.9 - 3.2 [facility] x10(3)/[facility] LABORATORY Monocytes % 9.4 % [facility] Monocyte Abs 0.7 0.3 - 0.9 [facility] x10(3)/[facility] LABORATORY Eosinophils % 0.5 % [facility] Eosinophils Abs 0.0 0.0 - 0.4 [facility] x10(3)/[facility] LABORATORY Basophils % 0.4 % [facility] Basophils Abs 0.0 0.0 - 0.1 [facility] x10(3)/[facility] LABORATORY Immature Gran % 0.40 % ST [...] Melisa Gran Abs 0.03 0.00 - 0.04 x10(3)/[facility] MAR Y [facility] LABORATORY Specimen Anatomical Collection Method Collection Time Receive d Time (Source) Location / / Volume Laterality Blood specimen 07/06/2017 2:20 AM 017 2:33 (specimen) EST AM EST Resulting Agency Comment Spec In Lab Daphne Shahid MD HEMATOLOGY ORDERABLES Performing Organization Address City/State/[place] [address] (ABNORMAL) Hemogram (07/06/2017 2:20 AM EST) Analysis Performed At Patho logist Time Signature WBC 7.6 4.0 - 9.5 [facility] x10(3)/[facility] LABORATORY RBC 4.52 (L) 4.58 - [facility] 5.[address] [facility] x10(6)/[facility] LABORATORY Hemoglobin 13.4 (L) 13.7 - [facility] 16.5 gm/dL [facility] Hematocrit 39.7 (L) 40.5 - [facility] 48.5 % [facility] MCV 87.8 82.9 - [facility] 93.1 [facility] LAB[facility]ATORY MCH 29.6 27.5 - [facility] 32.1 pg [facility] MCHC 33.8 32.0 - [facility] 35.7 gm/dL [facility] Platelets 189 145 - 357 [facility] x10(3)/[facility] LABORATORY RDWSD 45.6 (H) 36.0 - [facility] 45.0 [facility] LABORATORY RDWCV 14.3 (H) 11.4 - [facility] 13.8 % [facility] MPV 9.1 7.6 - 12.9 [facility] LABORATORY nRBC % Auto 0.0 % [facility] nRBC Abs Auto 0.000 0.000 - [facility] 0.[address] [facility] x10(3)/[facility] LABORATORY Specimen Anatomical Collection Method Collection Time Receive d Time (Source) Location / / Volume Laterality Blood specimen 07/06/2017 2:20 AM 017 2:33 (specimen) EST AM EST Resulting Agency Comment Spec In Lab Daphne Shahid MD HEMATOLOGY ORDERABLES Performing Organization Address City/State/[place] [address] (ABNORMAL) APTT (07/06/2017 2:20 AM EST) P athologist Signature PTT 52 (H) 25 - [address] [facility] Comment: The recommended therapeutic range for fu ll dose, unfractionated heparin [place] [facility] is 80 ? 114 [...] Address City/State/ZIP Code Phon e Number [address] POCT Glucose (07/06/2017 2:20 AM EST) athologist Signature POC Glucose 115 65 - 199 [facility]/dL [facility] Comment: Supplemental ranges: [...] City/[facility]/[place] [address] (ABNORMAL) Cardiac Enzymes (LEB/CGP) (07/06/2017 2:20 AM EST) athologist Signature Troponin-T 2.13 (H) 0.00 - [place] [facility] 0.00 ng/mL [facility] Comment: The 99th [...] additional sample may be indicated. Reference: Third Wagram Definition of Myocardial Infarction. Journal of the [place] [employer] 2012;60:1581-98 CK, Total 129 0 - 200 unit/L [facility] Specimen Anatomical Collection Method Collection Time Receive d Time (Source) Location / / Volume Laterality Blood specimen 07/06/2017 2:20 AM 017 2:33 (specimen) EST AM EST Resulting Agency Comment Spec In Lab Daphne Shahid MD CHEMISTRY ORDERABLES Performing Organization Address City/State/[place] [address] (ABNORMAL) Hemoglobin A1c (07/06/2017 2:20 AM EST) Analysis Performed At Patho logist Time Signature Hemoglobin A1C 6.8 (H) 4.3 - 5.6 [facility] [...] Mellitus, Diabetes Care 2013; 36: Suppl. 1, W57-60 Est Avg Gluc See note mg/dL [facility] Comment: Estimated Average Glucose [...] with hemoglobinopathies. Additional resources are available on [facility] ADA website. Macario HAMMOND, Ruthann J, Deysi R, et al. ??Tr anslating the A1C assay into estimated average glucose values. ??Diabetes Care 2008:31(8):6783-4067. Specimen Anatomical Collection Method Collection Time Receive d Time (Source) Location / / Volume Laterality Blood specimen 07/06/2017 2:20 AM 017 2:34 (specimen) EST AM EST Resulting Agency Comment Spec In Lab Daphne Shahid MD CHEMISTRY ORDERABLES Performing Organization Address City/State/[place] [address] (ABNORMAL) Lipid Panel (07/06/2017 2:20 AM EST) [facility] Method Time Signature Chol, Total 150 <=239 [place] mg/dL [facility] LABORATORY Triglycerides 129 <=199 [place] mg/dL [facility] LABOR[facility]ORY HDL 32 (L) >=40 [place] mg/dL [facility] LDL Cholesterol 92 <=190 [place] mg/dL [facility] Chol/HDL Ratio 4.[address] [facility] Lipid See Note [place] Interpretation [facility] Comment: Lipid management should be guided by a p atient? s ASCVD risk, goals and preferences. ACC/AHA Guidelines recommend high intens ity statin if clinical ASCVD or LDL greater than or equal to 190 mg/dL. [email or web address] Adults aged 40-75 with LDL 70-189 mg/dL should have their 10 year ASCVD risk estimated with the ACC/AHA ASCVD risk es timator http://tools.acc.org/YPRGU-Ahlz-Ndkpquiu r/ Statin should be discussed if risk [...] Shahid MD CHEMISTRY ORDERABLES Performing Organization Address City/[facility]/ZIP Code Phon e Number [address] POCT Glucose (07/06/2017 1:09 AM EST) athologist Signature POC Glucose 121 65 - 199 [facility]/dL [facility] Comment: Supplemental ranges: <140 mg/dL before meals <180 mg/dL all other times of the day Specimen Anatomical Collection Method Collection Time Receive d Time (Source) Location / / Volume Laterality Blood specimen 07/06/2017 1:09 AM 017 1:09 (specimen) EST AM EST Daphne Shahid MD POINT OF CARE TEST ORDERABLE S Performing Organization Address City/State/[place] [address] POCT Glucose (07/06/2017 12:06 AM EST) P athologist Signature POC Glucose 147 65 - 199 [facility] mg/dL [facility] Comment: Supplemental ranges: <140 mg/dL before meals <180 mg/dL all other times of the day Specimen Anatomical Collection Method Collection Time Receive d Time (Source) Location / / Volume Laterality Blood specimen 07/06/2017 12:06 7 (specimen) AM EST 12:06 AM EST Daphne Shahid MD POINT OF CARE TEST ORDERABLE S Performing Organization Address City/State/[place] [address] (ABNORMAL) POCT Glucose (07/05/2017 10:56 PM EST) P athologist Signature POC Glucose 200 (H) 65 - 199 [facility] [place] mg/dL [facility] Comment: Supplemental ranges: <140 mg/dL before meals <180 mg/dL all other times of the day Specimen Anatomical Collection Method Collection Time Receive d Time (Source) Location / / Volume Laterality Blood specimen 07/05/2017 10:56 7 (specimen) PM EST 10:56 PM EST Daphne Shahid MD POINT OF CARE TEST ORDERABLE S Performing Organization Address City/State/[place] [address] (ABNORMAL) POCT Glucose (07/05/2017 10:05 PM EST) P athologist Signature POC Glucose 225 (H) 65 - 199 [facility] [place] mg/dL [facility] Comment: Supplemental ranges: <140 mg/dL before meals <180 mg/dL all other times of the day Specimen Anatomical Collection Method Collection Time Receive d Time (Source) Location / / Volume Laterality Blood specimen 07/05/2017 10:05 7 (specimen) PM EST 10:05 PM EST Daphne Shahid MD POINT OF CARE TEST ORDERABLE S Performing Organization Address City/State/[place] [address] (ABNORMAL) POCT Glucose (07/05/2017 9:02 PM EST) P athologist Signature POC Glucose 301 (H) 65 - 199 K[place]INA RYAN mg/dL [facility] Comment: Supplemental ranges: <140 mg/dL before meals <180 mg/dL all other times of the day Specimen Anatomical Collection Method Collection Time Receive d Time (Source) Location / / Volume Laterality Blood specimen 07/05/2017 9:02 PM 017 9:02 (specimen) EST PM EST Daphne Shahid MD POINT OF CARE TEST ORDERABLE S Performing Organization Address City/State/ZIP Code Phon e Number [place] [id number] XR Chest PA or [...] effusion or pneumothorax is seen. Procedure Note Dnaiele Mary MD - 07/05/2017Formatt ing of this [...] 474 ms MUSE SYSTEM (Bezet) Calculated P [place] 50 degrees MUSE SYSTEM Calculated R [place] -28 degrees MUSE SYSTEM Calculated T [place] 90 degrees MUSE SYSTEM INTERPRETATION Sinus tachycardia [...] 8:39 PM 7 8:44 EST AM EST Daphen Shahid MD ECG ORDERABLES Performing Organization Address City/State/ZIP Code Phon e Number MUSE SYSTEM (ABNORMAL) Differential, Automated (07/05/2017 8:20 PM EST) [facility] gist Method Time Signature Neutrophils % 88.4 % [facility] Neutr Abs (ANC) 9.08 (H) 1.70 - [facility] 6.[address] [facility] x10(3)/[facility] L LABORATORY Lymphocytes % 7.0 % [facility] Lymphocytes Abs 0.7 (L) 0.9 - 3.2 [facility] x10(3)/[facility] LABORATORY Monocytes % 3.7 % [facility] Monocyte Abs 0.4 0.3 - 0.9 [facility] x10(3)/[facility] LABORATORY Eosinophils % 0.1 % [facility] Eosinophils Abs 0.0 0.0 - 0.4 [facility] x10(3)/[facility] LABORATORY Basophils % 0.2 % [facility] Basophils Abs 0.0 0.0 - 0.1 [facility] x10(3)/[facility] LABORATORY Immature Gran % 0.60 % ST [...] Gran Abs 0.06 (H) 0.00 - 0.04 x10(3)/[facility] LABORATORY Specimen Anatomical Collection Method Collection Time Receive d Time (Source) Location / / Volume Laterality Blood specimen 07/05/2017 8:20 PM 017 8:27 (specimen) EST PM EST Resulting Agency Comment Spec In Lab Daphne Shahid MD HEMATOLOGY ORDERABLES Performing Organization Address City/State/[place] [address] (ABNORMAL) Hemogram (07/05/2017 8:20 PM EST) Analysis Performed At Patho logist Time Signature WBC 10.3 (H) 4.0 - 9.5 [facility] x10(3)/[facility] LABORATORY RBC 4.64 4.58 - [facility] RYAN 5.[address] [facility] x10(6)/[facility] LABORATORY Hemoglobin 14.1 13.7 - [facility] 16.5 gm/dL [facility] Hematocrit 40.8 40.5 - [facility] 48.5 % [facility] MCV 87.9 82.9 - [facility] 93.1 [facility] LABORATORY MCH 30.4 27.5 - [facility] 32.1 pg [facility] MCHC 34.6 32.0 - [facility] 35.7 gm/dL [facility] Platelets 204 145 - 357 [facility] x10(3)/[facility] LABORATORY RDWSD 46.1 (H) 36.0 - [facility] 45.0 [facility] LABORATORY RDWCV 14.5 (H) 11.4 - [facility] RYAN 13.8 % [facility] MPV 9.7 7.6 - 12.9 [facility] LABORATORY nRBC % Auto 0.0 % [facility] nRBC Abs Auto 0.000 0.000 - [facility] 0.[address] [facility] x10(3)/[facility] LABORATORY Specimen Anatomical Collection Method Collection Time Receive d Time (Source) Location / / Volume Laterality Blood specimen 07/05/2017 8:20 PM 017 8:27 (specimen) EST PM EST Resulting Agency Comment Spec In Lab Daphne Shahid MD HEMATOLOGY ORDERABLES Performing Organization Address [facility]/[place] [address] APTT (07/05/2017 8:20 PM EST) athologist Signature PTT 32 25 - [address] [facility] Comment: The recommended therapeutic range for fu ll dose, unfractionated heparin [place] [facility] is 80 ? 114 [...] Shahid MD HEMATOLOGY ORDERABLES Performing Organization Address [facility] [place] [address] (ABNORMAL) Cardiac Enzymes (LEB/CGP) (07/05/2017 8:20 PM EST) athologist Signature Troponin-T 2.11 (H) 0.00 - [facility] 0.00 ng/mL [facility] Comment: The 99th [...] additional sample may be indicated. Reference: Third Wagram Definition of Myocardial Infarction. Journal of the [place] College [employer]iology 2012;60:1581-98 CK, Total 149 0 - 200 unit/L [facility] Specimen Anatomical Collection Method Collection Time Receive d Time (Source) Location / / Volume Laterality Blood specimen 07/05/2017 8:20 PM 017 8:27 (specimen) EST PM EST Resulting Agency Comment Spec In Lab Daphne Shahid MD CHEMISTRY ORDERABLES Performing Organization Address City/[facility]/[place] [address] (ABNORMAL) Magnesium (07/05/2017 8:20 PM EST) P athologist Signature Magnesium 0.68 (L) 0.69 - 1.07 [facility] mmol/L [facility] Specimen Anatomical Collection Method Collection Time Receive d Time (Source) Location / / Volume Laterality Blood specimen 07/05/2017 8:20 PM 017 8:27 (specimen) EST PM EST Resulting Agency Comment Spec In Lab Daphne Shahid MD CHEMISTRY ORDERABLES Performing Organization Address City/[facility]/[place] [address] (ABNORMAL) Basic Metabolic Panel (non-fasting) (07/05/2017 8:20 PM EST) P athologist Signature Glucose Lvl 321 (H) 65 - 199 [facility] mg/dL [facility] Comment: Diabetes: >=200 mg/dL plus symp toms BUN 20 10 - 20 mg/dL [facility] [...] Anion Gap 14 5 - 15 mmol/L [facility] [...] in patients with acute kidney failure. [email or web address] [email or web address] Specimen Anatomical Collection Method Collection Time Receive d Time (Source) Location / / Volume Laterality Blood specimen 07/05/2017 8:20 PM 017 8:27 (specimen) EST PM EST Resulting Agency Comment Spec In Lab Daphne Shahid MD CHEMISTRY ORDERABLES Performing Organization Address City/[facility]/[place] [address] (ABNORMAL) POCT Glucose (07/05/2017 7:32 PM EST) P athologist Signature POC Glucose 296 (H) 65 - 199 [facility] mg/dL [facility] Comment: Supplemental ranges: [...] City/[facility]/ZIP Code [place] [address] CARDIAC CATHETERIZATION (07/05/2017 6:47 PM EST) Specimen (Source) Anatomical Location Collection Method / Collectio n Time Received Time / Laterality Volume Narrative CARDIOMAC SYSTEM - 07/05/2017 7:27 PM ES T ?[facility] ? Cardiac Cathete rization/Intervention Report ? Patient Name: Natalya, Gregory ? Procedure Date: 07/05/2017 ? A #: [id number] ? Primary Physician: Jet Mckenna ? Case #: [id number] ? File Name: [id number] ? Catheterization Order Number: [id number] ? [facility] ? Final Report [place], [place] ? Patient Name: ? Gregory Natalya ?ID#: ?[id number] ? : ?1945 ? Procedure Date: ? [...] presented with: non -STEMI (w/i 7 days). [place] ?[employer] angina c lass was IV. 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 ? Jet Mckenan M.D. ? Electronically Signed by: Jet bunch M.D. ? Report Finalized: 07/05/2017 ??19:23 ? Report Last Ammended: 10/26/2017 ??10:29 ? Procedure Note Jet Mckenna MD - 10/26/2017Formatt ing of this note might be different from the original. [facility] Cardiac Catheterization/Intervention Re port Patient Name: Gregory Hoang Procedure Date: 07/05/2017 A #: [id number] Primary Physician: Jet Mckenna Case #: [id number] File Name: [id number] Catheterization Order Number: [id number] [facility] Final Report [place], [place] Patient Name: Gregory Hoang ID#: [id number] 3- : 1945 Procedure Date: July 05, [...] presented with: non-STEMI ( w/i 7 days). [place] [employer] angina class was IV. 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 Jet Mckenna M.D. Electronically Signed by: Jet [...] E ? (Age): 1945(72y) Med Rec#: ? [id number] ?Sex: ?M ? [place] ? [facility] [place] ?Ht / Wt: ??173(cm)/86(kg) Pt. Loc: ?[facility] ? BSA: ?2 Study Date: ?? 07/05/2017 ?Pt. Type: Inpatient Tape: ? Referring: Daphne Shahid ([id number]) Referring: MANDA ALCANTAR Reading: Blade Preston ([id number]) Liquid Sugar Fortifier: Dayami Paula BA, [facility] Diagnosis: *ICD-10-PCS Non-ST elevation (NSTEMI) [...] E-wave Vmax ?0.8 ?m/sec ? MV deceleration [id number] ?msec ? MV A-wave Vmax ?0.8 ?m/sec [...] ? Mid-Inferior ?Akinetic ? Mid-Inferoseptal ?Hypokinetic ? [place]-Septal ? Akinetic ? [place]-Anterior ? Hypokinetic ? [place]-Lateral ?Hypokinetic ? [place]-Inferior ? Akinetic ? [place]-Tip ?Akinetic ? This report has been electronically sign ed by: _ Blade Preston MD ? 07/06/2017 08 :53:15 Images reviewed and interpretation verif ied [facility] Cardiac Ultrasound Laboratory Procedure Note Blade Preston MD - 07/06/2017Formatt ing of this note might be different from the original. Procedure: Transthoracic Echocardiogram Patient: NATALYA MCBRIDE(Age): [birth year]72y) Med Rec#: [id number] Sex: M [place] [facility] [place] Ht / Wt: 173(cm)/86(kg) Pt. Loc: [facility] BSA: 2 Study Date: 07/05/2017 Pt. Type: Inpatie nt Tape: Referring: Daphne Shahid ([id number]) Referring: MANDA ALCANTAR Reading: Blade Preston ([id number]) Liquid Sugar Fortifier: Dayami Paula BA, [facility] Diagnosis: *ICD-10-PCS Non-ST elevation (NSTEMI) [...] MV E-wave Vmax 0.8 m/sec MV deceleration [id number] msec MV A-wave Vmax 0.8 m/sec MV [...] Hypokinetic Mid-Posterolateral Hypokinetic Mid-Inferior Akinetic Mid-Inferoseptal Hypokinetic [place]-Septal Akinetic [place]-Anterior Hypokinetic [place]-Lateral Hypokinetic [place]-Inferior Akinetic [place]-Tip Akinetic This report has been electronically sign ed by: _ Blade Preston MD 07/06/2017 08:53:15 Images reviewed and interpretation verif ied [facility] Cardiac Ultrasound Laboratory Daphne Shahid MD ECHO ORDERABLES Performing Organization Address City/State/ZIP Code Phon e Number [facility] Differential, Automated (07/05/2017 4:55 PM EST) P athologist Signature Neutrophils % 77.0 % [facility] Neutr Abs (ANC) 5.26 1.70 - [facility] 6.[address] [facility] x10(3)/[facility] LABORATORY Lymphocytes % 13.3 % [facility] Lymphocytes Abs 0.9 0.9 - 3.2 [facility] x10(3)/[facility] LABORATORY Monocytes % 8.2 % [facility] Monocyte Abs 0.6 0.3 - 0.9 [facility] x10(3)/[facility] LABORATORY Eosinophils % 0.7 % [facility] Eosinophils Abs 0.0 0.0 - 0.4 [facility] x10(3)/[facility] LABORATORY Basophils % 0.4 % [facility] Basophils Abs 0.0 0.0 - 0.1 [facility] x10(3)/[facility] LABORATORY Immature Gran % 0.40 % ST [...] Gran Abs 0.03 0.00 - 0.04 x10(3)/[facility] LABORATORY Specimen Anatomical Collection Method Collection Time Receive d Time (Source) Location / / Volume Laterality Blood specimen 07/05/2017 4:55 PM 017 5:24 (specimen) EST PM EST Resulting Agency Comment Spec In Lab Daphne Shahid MD HEMATOLOGY ORDERABLES Performing Organization Address City/State/[place] [address] (ABNORMAL) Hemogram (07/05/2017 4:55 PM EST) Analysis Performed At Patho logist Time Signature WBC 6.8 4.0 - 9.5 [facility] x10(3)/[facility] LABORATORY RBC 4.67 4.58 - [place]ALINA ZHAORYAN 5.[address] [facility] x10(6)/[facility] LABORATORY Hemoglobin 14.0 13.7 - [facility] 16.[facility] gm/dL [facility] Hematocrit 41.0 40.5 - [facility] 48.5 % [facility] MCV 87.8 82.9 - [facility] 93.1 [facility] LABORATORY MCH 30.0 27.5 - [facility] 32.1 pg [facility] MCHC 34.1 32.0 - [facility] 35.7 gm/dL [facility] Platelets 197 145 - 357 [facility] x10(3)/[facility] LABORATORY RDWSD 46.4 (H) 36.0 - [facility] 45.0 [facility] LABORATORY RDWCV 14.5 (H) 11.4 - [facility] 13.8 % [facility] LABORATORY MPV 9.7 7.6 - 12.9 [facility] LABORATORY nRBC % Auto 0.0 % [facility] nRBC Abs Auto 0.000 0.000 - [facility] 0.[address] [facility] x10(3)/[facility] LABORATORY Specimen Anatomical Collection Method Collection Time Receive d Time (Source) Location / / Volume Laterality Blood specimen 07/05/2017 4:55 PM 017 5:24 (specimen) EST PM EST Resulting Agency Comment Spec In Lab Daphne Shahid MD HEMATOLOGY ORDERABLES Performing Organization Address City/State/[place] [address] (ABNORMAL) Cardiac Enzymes (LEB/CGP) (07/05/2017 4:55 PM EST) P athologist Signature Troponin-T 1.69 (H) 0.00 - [facility] ng/mL [facility] Comment: The 99th [...] additional sample may be indicated. Reference: Third Wagram Definition of Myocardial Infarction. Journal of the [place] College [employer]iology 2012;60:1581-98 CK, Total 191 0 - 200 unit/L [facility] Specimen Anatomical Collection Method Collection Time Receive d Time (Source) Location / / Volume Laterality Blood specimen 07/05/2017 4:55 PM 017 5:56 (specimen) EST PM EST Resulting Agency Comment Spec In Lab Daphne Shahid MD CHEMISTRY ORDERABLES Performing Organization Address City/State/[place] [address] (ABNORMAL) pro-Brain Natriuretic Peptide (07/05/2017 4:55 PM EST) P athologist Signature ProBNP 1,598 (H) <=125 [facility] pg/mL [facility] LABORATORY Specimen Anatomical Collection Method Collection Time Receive d Time (Source) Location / / Volume Laterality Blood specimen 07/05/2017 4:55 PM 017 5:24 (specimen) EST PM EST Resulting Agency Comment Spec In Lab Daphne Shahid MD CHEMISTRY ORDERABLES Performing Organization Address City/State/[place] [address] [facility] [address] Magnesium (07/05/2017 4:55 PM EST) athologist Signature Magnesium 0.78 0.69 - 1.07 [facility] mmol/L [facility] LABOR[facility]ORY Specimen Anatomical Collection Method Collection Time Receive d Time (Source) Location / / Volume Laterality Blood specimen 07/05/2017 4:55 PM 017 5:24 (specimen) EST PM EST Resulting Agency Comment Spec In Lab Daphne Shahid MD CHEMISTRY ORDERABLES Performing Organization Address City/State/ZIP Code Phon e Number [address] (ABNORMAL) Basic Metabolic Panel (non-fasting) (07/05/2017 4:55 PM EST) athologist Signature Glucose Lvl 230 (H) 65 - 199 [facility] mg/dL [facility] Comment: Diabetes: >=200 mg/dL plus symp toms BUN 19 10 - 20 mg/dL [facility] LABORATORY Creatinine 1.04 0.80 - 1.50 [...] Anion Gap 14 5 - 15 mmol/L [facility] [...] or in patients with acute kidney failure. [email or web address] [email or web address] Specimen Anatomical Collection Method Collection Time Receive d Time (Source) Location / / Volume Laterality Blood specimen 07/05/2017 4:55 PM 017 5:24 (specimen) EST PM EST Resulting Agency Comment Spec In Lab Daphne Shahid MD CHEMISTRY ORDERABLES Performing Organization Address City/[facility] [place] [address] (ABNORMAL) APTT (07/05/2017 4:55 PM EST) P athologist Signature PTT 41 (H) 25 - [address] [facility] Comment: The recommended therapeutic range for fu ll dose, unfractionated heparin [place] [facility] is 80 ? 114 [...] Shahid MD HEMATOLOGY ORDERABLES Performing Organization Address City/[facility]/[place] [address] (ABNORMAL) POCT Glucose (07/05/2017 4:53 PM EST) P athologist Signature POC Glucose 208 (H) 65 - 199 [facility] mg/dL [facility] Comment: Supplemental ranges: [...] City/[facility]/[place] [address] EKG 12 Lead (07/05/2017 4:32 PM EST) Component Value Ref Range Test Analysis Performed Pathologis t Method Time At Signature Ventricular rate 97 BPM MUSE SYSTEM Atrial Rate 97 BPM MUSE SYSTEM P-R Interval 148 ms MUSE SYSTEM QRS Duration 96 ms MUSE SYSTEM Q-T Interval 364 ms MUSE SYSTEM QTC Calculated 462 ms MUSE SYSTEM (Bezet) Calculated P [place] 48 degrees MUSE SYSTEM Calculated R [place] -33 degrees MUSE SYSTEM Calculated T [place] 98 degrees MUSE SYSTEM INTERPRETATION Normal sinus [...] Coronary atherosclerosis of unspecified type of vessel, [place] or graft Cardiomyopathy, ischemic Other specified forms [...] post-op day 1 in the AM Give CA if unable to take PO, Routine Given [...] in dextrose 5% 250 mL EST infusion ([employer]) CONTINUOUS PRN, Starting on Wed07/05/17 at 1837, [...] post-op day 1 in the AM Give CA if unable to take PO, Routine atorvastatin [...] post-op day 1 in the AM Give CA if unable to take PO
Routine Group [...] documented in this encounter Care Teams Newspaper Editor Relationship Specialty Start Date End Date Lovely Vicente MD PCP - General 04/16/15 [facility] [address] [place] [address] documented as of this encounter
--- OUTSIDE RECORDS SUMMARY | 2022-02-27 15:19 | XMS_ITS | Encounter Summary ---
:1945 Author Organization [facility] [address] Care Team Providers Name Role Phone MiyaLokeshAngela STACIE Primary Care Provider Encounter Details Date Type Department Care Team Description 01/16/2014 Hospital Encounter Gastroenterology at [facility] Nohemi Jaimes, [facility] [place] [address] [facility] [phone] [facility] [place], [place] [address] Social History Tobacco Use [...] you need to be checked. Wednesday[facility] [phone] 8a-5p Same Day Endo [phone] 7a-8p Otherwise contact [phone] and ask to speak to the network associate clinical program consultant Follow up care is a shelton [...] Jaimes MD - 01/16/2014 9:49 AM EDT [facility] Operative Note Patient Name: Gregory Fatima : [id number] MR#: [id number] Case Date: 01/16/2014 Surgeon: Surgeon(s) and Role: * Nohemi Jaimes MD - Primary Preoperative diagnosis: 5 yr surv. Full procedure note is documented under the Procedure section of eDH. documented in this encounter Plan of Treatment Upcoming Encounters Date Type Specialty Care Team Description 03/26/2022 Office Visit Cardiology Vitaliy Nobles MD [facility] [address] [place], [place] [address] (Wo rk) 06/10/2022 Office Visit Dermatology Laura Scherer MD [facility] [address] [place], [place] [address] (Wo rk) documented as [...] Surgical Pathology Report (01/16/2014 9:53 AM EDT) [facility] Method Time Signature Surgical CERNER Pathology ? [facility] Report ? Provider: ?? SHREE, NOHEMI Gonzalez ?Pt. Name: ?? SURINDER RT, GREGORY Mccollum ? Acc #: ?[id number] ?Pt. MRN: ?[id number] ? Col Date: ?? 4 ? /Sex: [...] Address City/State/ZIP Code Phon e Number [address] [facility] Specimen to Pathology (surgical or derm) (01/16/2014 9:53 AM EDT) Specimen Anatomical Collection Method Collection Time Receive d Time (Source) Location / / Volume Laterality AP Specimen 01/16/2014 9:53 AM 4 9:53 EDT AM EDT Narrative CERNER MILLENNIUM - 01/16/2014 9:53 AM E DT Specimen requisition ordered. ??Separate Pathology report to follow Nohemi Jaimes MD PATHOLOGY/CYTOLOGY ORDERABLE S Performing Organization Address City/[facility]/ZIP Code Phon e Number [address] [facility] Specimen to Pathology (surgical or derm) (01/16/2014 9:53 AM EDT) Specimen Anatomical Collection Method Collection Time Receive d Time (Source) Location / / Volume Laterality AP Specimen 01/16/2014 9:53 AM 4 9:53 EDT AM EDT Narrative RAKESH VILLALOBOSENNIUM - 01/16/2014 9:53 AM E DT Specimen requisition ordered. ??Separate Pathology report to follow Nohemi Jaimes MD PATHOLOGY/CYTOLOGY ORDERABLE S Performing Organization Address [facility]/State/[place] [address] CERNER MILLENNIUM COLONOSCOPY (01/16/2014 7:25 AM EDT) [facility] Method Time Signature COLONOSCOPY [facility] End[facility] Patient Name: Gregory Fatima ? Procedure Date: 01/16/2014 7:25 AM ? N: [id number] ? Date of : 1945 ? Age: 68 ? Order #: [id number] ? Procedure: ? Colonoscopy Indications: ? High risk colon cancer surveillance : ? 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 dm on metformin with bs ~ 110 this ? am,s/p melanoma years ago, os a, ? goiter s/p surgery, p Providers: ? Nohemi Jaimes MD, Blanca xiong, ? RN, Jacquie Renner RN Referring : [...] Routine documented in this encounter Care Teams Synthetic Soil Blocks Pulper Relationship Specialty Start Date End Date Angela Sotelo APRN PCP - General 01/25/13 04/15/[address] [place] [place] [address] documented as of this encounter
--- OUTSIDE RECORDS SUMMARY | 2022-02-27 15:19 | XMS_ITS | Encounter Summary ---
:1945 Author Organization [facility] [place] [address] Care Team Providers Name Role Phone Angela Holliday APRN Primary Care Provider Reason for Visit Reason Comments Other Encounter Details Date Type Department Care Team Description 08/01/2013 Telephone Dermatology at [facility] Rigoberto Garcia III, [address] [place] [address] [facility] [phone] TEJA MARIE-DERMAT [place], [place] [address] (Wo rk) Social History Tobacco [...] them. Component Value Surgical Pathology Final Report [facility] Provider: RIGOBERTO GARCIA III Pt. Name: DON HOANG Acc #: [id number] Pt. 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 CR-0 08/01/13 BJM 08/01/13 Verified by: Ian STRANGE, PhD, [facility] Dermatopathologist (Electronic Signature) The attending pathologist [...] [facility] DR TADEO [place], [place] [address] (Wo rk) 06/10/2022 Office Visit Dermatology Laura Scherer MD [facility] DR TEJA MARIE-DERMAT [place], [place] [address] (Wo rk) documented as of this encounter Visit Diagnoses Not on filedocumented in this encounter Care Teams Commercial Green Building Designer Relationship Specialty Start Date End Date Angela Holliday APRN PCP - General 01/25/13 04/15/[address] [place] [address] documented as of this encounter
--- OUTSIDE RECORDS SUMMARY | 2022-02-27 15:19 | XMS_ITS | Encounter Summary ---
:1945 Author Organization [facility] [place] [address] Care Team Providers Name Role Phone Angela Holliday APRN Primary Care Provider Encounter Details Date Type Department Care Team Description 04/05/2013 [place] [address] Social History Tobacco Use Types Packs/Day Years Used Date Former Smoker Alcohol Use Standard Drinks/Week Comments No 0 (1 standard drink = 0.6 oz pure alcoho l) Sex Assigned at Date Recorded Not on file documented as of this encounter Plan of Treatment Upcoming Encounters Date Type Specialty Care Team Description 03/26/2022 Office Visit Cardiology Vitaliy Nobles MD [facility] ER DR TADEO [place], [place] [address] (Wo rk) 06/10/2022 Office Visit Dermatology Lauar Scherer MD [facility] ER DR TEJA GR-DERMAT [facility] [place], [place] [address] (Wo rk) documented as of this encounter Visit Diagnoses Not on filedocumented in this encounter Care Teams Control System Manager Relationship Specialty Start Date End Date Angela Holliday APRN PCP - General 01/25/13 04/15/15 4 [place] [address] documented as of this encounter
--- OUTSIDE RECORDS SUMMARY | 2022-02-27 15:19 | XMS_ITS | Encounter Summary ---
:1945 Author Organization [facility] [place] [address] Care Team Providers Name Role Phone MiyaAngela STACIE Primary Care Provider Reason for Visit Reason Comments Urinary Retention Encounter Details Date Type Department Care Team Description 05/16/2013 Follow-Up Urology at [facility] Blade Smith, Retention of urine [facility] (Primary Dx) [place] [address] UROLOGY DEPT [place] [id number] (Wo rk) Social History Tobacco Use Types [...] MD [facility] DR TADEO [place], [place] [address] (Wo rk) 06/10/2022 Office Visit Dermatology Laura Scherer MD [facility] DR TEJA GR-DERMAT [facility] [place], [place] [address] (Wo rk) documented as of this encounter Visit Diagnoses Diagnosis Retention of urine - Primary Retention of urine, unspecified documented in this encounter Care Teams Digital Forensics Examiner Relationship Specialty Start Date End Date Angela Holliday APRN PCP - General 01/25/13 04/15/[address] [place] [address] documented as of this encounter
--- OUTSIDE RECORDS SUMMARY | 2022-02-27 15:20 | XMS_ITS | Encounter Summary ---
:1945 Author Organization [facility] [place] [address] Care Team Providers Name Role Phone Angela Holliday APRN Primary Care Provider Encounter Details Date Type Department Care Team Description 03/28/2013 Surgery Main Operating Room Mesha Mcknight, THYROIDECTOMY, [facility] [place] [address] [place] [address] [phone] (Wo rk) Social History Tobacco Use Types [...] please call the General Surgery nurse at [phone], since this may mean that you need morecalcium. Follow-up Appointment: Will be scheduled with Dr. Mcknight in 6 weeks Date and time as well as any required labs will be mailed to you Please call [phone] to confirm date and time of your [...] by calcium supplementation. Phone number for questions: [phone] before 5 PM weekdays [phone] after 5 PM and on weekends/holidays Please follow up with Urology as per their recommendations for Bob removal AttachmentsThe following attachments cannot be sent through Care Everywhere. THYROIDECTOMY: WHAT TO EXPECT AT HOME ([place])URINARY CATHETER CARE: AFTER YOUR VISIT ([place])documented in this encounter Medications at Time of [...] is a 68 y.o. male presents to [facility] today for total thyroidectomy. See full [...] MD - 03/28/2013 3:43 PM EDT [facility] Operative Note Patient Name: Gregory Fatima : [id number] MR#: [id number] Case Date: 03/28/2013 Surgeon: Surgeon(s) and Role: [...] patient was extubated and taken to the [facility] in stable condition. At the end [...] Operative Note Patient Name: Gregory Fatima : [id number] MR#: [id number] Case Date: 03/28/2013 Surgeon: Surgeon(s) and Role: [...] Vitaliy Nobles MD [facility] CARDIOLOGY [place], [place] [address] (Wo rk) 06/10/2022 Office Visit Dermatology Laura Scherer MD [facility] DR TEJA GR-DERMAT [facility] [place], [place] [address] (Wo rk) documented as of [...] Address City/State/ZIP Code Phon e Number [address] CERNER MILLENNIUM (ABNORMAL) [...] TEST ORDERABLE S Performing Organization Address City/[facility]/[place] [address] CERNER MILLENNIUM (ABNORMAL) POCT [...] Address City/State/ZIP Code Phon e Number [address] CERNER MILLENNIUM (ABNORMAL) [...] TEST ORDERABLE S Performing Organization Address City/[facility]/ZIP Code Phon e Number [address] CERNER MILLENNIUM (ABNORMAL) [...] Address City/State/ZIP Code Phon e Number [address] CERNER MILLENNIUM (ABNORMAL) [...] Organization Address City/State/[place] [address] CERNER MILLENNIUM (ABNORMAL) POCT [...] TEST ORDERABLE S Performing Organization Address City/[facility]/ZIP Code Phon e Number [address] CERNER MILLENNIUM (ABNORMAL) [...] Organization Address City/State/[place] [address] CERNER MILLENNIUM Specimen to Pathology (surgical or derm) (03/28/2013 12:14 PM EDT) Specimen Anatomical Collection Method Collection Time Receive d Time (Source) Location / / Volume Laterality AP Specimen 03/28/2013 12:14 03/28/2013 PM EDT 12:14 PM EDT Narrative [facility] - 03/28/2013 12:14 PM EDT Specimen requisition ordered. ??Separate Pathology report to follow Mesha Mcknight MD PATHOLOGY/CYTOLOGY ORDERABLE S Performing Organization Address City/State/[place] [address] [facility] Pathology Addendum Report (03/28/2013 12:03 PM EDT) Component Value Ref Test Analysis Performed At [facility] gist Range Method Time Signature Addendum [facility] Report ? [facility] [place] [facility] [place] ? Provider: ?? MESHA MCKNIGHT Pt. Name: ?? SHERIF FATIMARY Veda ? Acc #: ?[id number] ?Pt. MRN: ?[id number] ? Col Date: ?? 03/28/2013 ?/Sex: ?1945,(68 [...] MD PATHOLOGY/CYTOLOGY ORDERABLE S Performing Organization Address [facility]/State/[place] [address] [facility] Surgical Pathology Report (03/28/2013 12:03 PM EDT) Component Value Ref Test Analysis Performed At [facility] gist Range Method Time Signature Surgical [facility] Pathology ? [facility] [place] [facility] [place] Report ? Provider: ?? MESHA MCKNIGHT Pt. Name: ?? GREGORY FATIMA ? Acc #: ?[id number] ?Pt. MRN: ?[id number] ? Col Date: ?? 03/28/2013 ?/Sex: ?1945,(68 [...] areas of hemorrhage and ? calcifications. ? [facility] ? Provider: ?? MESHA MCKNIGHT Pt. Name: ?? GREGORY FATIMA ? Acc #: ?[id number] ?Pt. MRN: ?[id number] ? Col Date: ?? 03/28/2013 ?/Sex: ?1945,(68 years),Male ? Rec Date: ?? 03/28/2013 ?LOC: ?[facility] ? SURGICAL PATHOLOGY ? SECTIONS/PROCESSING: Windows Administrator sections are subm itted. (R6) ? B [...] MD PATHOLOGY/CYTOLOGY ORDERABLE S Performing Organization Address [facility]/State/ZIP Code Phon e Number [place] [id number] CERNER MILLENNIUM Frozen Section Report (03/28/2013 12:03 PM EDT) Component Value Ref Test Analysis Performed At [facility] Range Method Time Signature Frozen CERNER Section ? [facility] ? Provider: ?? MESHA MCKNIGHT Pt. Name: ?? GREGORY FATIMA ? Acc #: ?[id number] ?Pt. MRN: ?[id number] ? Col Date: ?? 03/28/2013 ?/Sex: ?1945,(68 years),Male ? Rec Date: ?? 03/28/2013 ?LOC: ?[facility] ? FROZEN SECTION REPORT ? ---Frozen Section Report--- ? Part A - Intraoperati ve gross consultation was performed. ??The case was ? discussed by phone with Dr. Mcknight, and no frozen ? section was performed. ? 03/31/13 ??Verified by: ??César STRANGE, Ruben Yusuf, [facility] gist ? The attending [facility] gist whose electronic signature appears on [...] Organization Address City/State/[place] [address] [facility] POCT Glucose (03/28/2013 12:00 PM EDT) P athologist Signature POC Glucose 134 60 - 199 CERNER mg/dL [facility] Comment: Supplemental ranges: <110 mg/dL before meals <200 mg/dL all other times of the day Specimen Anatomical Collection Method Collection Time Receive d Time (Source) Location / / Volume Laterality Blood specimen 03/28/2013 12:00 3 (specimen) PM EDT 12:00 PM EDT Mesha Mcknight MD POINT OF CARE TEST ORDERABLE S Performing Organization Address City/[facility]/ZIP [place] [address] [facility] Specimen to Pathology (surgical or derm) (03/28/2013 11:58 AM EDT) Specimen Anatomical Collection Method Collection Time Receive d Time (Source) Location / / Volume Laterality AP Specimen 03/28/2013 11:58 03/28/2013 AM EDT 11:58 AM EDT Narrative [facility] - 03/28/2013 11:58 AM EDT Specimen requisition ordered. ??Separate Pathology report to follow Mesha Mcknight MD PATHOLOGY/CYTOLOGY ORDERABLE S Performing Organization Address City/[facility]/ZIP [place] [address] [facility] Antibody screen (03/28/2013 9:37 AM EDT) Analysis Performed At Patho logist Time Signature Ab Screen Negative [facility] Expires at [id number] [facility] 2358 on: MILLENNIUM Specimen Anatomical Collection Method Collection Time Receive d Time (Source) Location / / Volume Laterality Blood specimen 03/28/2013 9:37 AM 013 9:37 (specimen) EDT AM EDT Resulting Agency Comment Spec In Lab Mesha Mcknight MD BLOOD BANK ORDERABLES Performing Organization Address City/State/ZIP Code Phon e Number [place] [id number] [facility] [address] CERNER MILLENNIUM ABO/Rh Typing [...] Address City/State/ZIP Code Phon e Number [address] CERNER MILLENNIUM Differential, Automated [...] City/State/[place] [address] CERNER MILLENNIUM (ABNORMAL) Basic [...] supplied above were not validated at [facility]. Results from pediatri [...] Mcknight MD CHEMISTRY ORDERABLES Performing Organization Address City/[facility]/ZIP [place] [address] CERNER MILLENNIUM (ABNORMAL) CBC [...] Organization Address City/State/[place] [address] CERKERI CARVALHOIUM POCT Glucose (03/28/2013 9:17 AM EDT) P athologist Signature POC Glucose 108 60 - 199 CERNER mg/dL [facility] Comment: Supplemental ranges: <110 mg/dL before meals <200 mg/dL all other times of the day Specimen Anatomical Collection Method Collection Time Receive d Time (Source) Location / / Volume Laterality Blood specimen 03/28/2013 9:17 AM 013 9:17 (specimen) EDT AM EDT Mesha Mcknight MD POINT OF CARE TEST ORDERABLE S Performing Organization Address City/State/ZIP Code Phon e Number [address] [facility] Specimen to Pathology (surgical or [...] Address City/State/ZIP Code Phon e Number [address] [facility] documented in this encounter Visit Diagnoses Not [...] c/o headache) 0738 (Given - Provider: Radha aYo VAMSI oseguera) 650 mg, Oral, EVERY 4 [...] override documented in this encounter Care Teams Casting And Curing Operator Relationship Specialty Start Date End Date Angela Holliday APRN PCP - General 01/25/13 04/15/15 [address] [place] [address] documented as of this encounter
--- OUTSIDE RECORDS SUMMARY | 2022-02-27 15:20 | XMS_ITS | Encounter Summary ---
:1945 Author Organization [facility] Address [facility] [place] [address] Care Team Providers Name Role Phone Unknown Primary Care Provider Unavailable Reason for Visit Reason Comments Skin Check Encounter Details Date Type Department Care Team Description 10/04/2012 Follow-Up Dermatology at Rigoberto Forman soriasis (Primary Dx); Abdelrahman HOOPER MD Neoplasm of unspecified nature of bone, soft tissue, and skin; [address] [facility] Skin lesion of chest wall; [place] [address] Seborrheic psoriasis- scalp and ingtergl uteal area [phone] [facility] [place], [place] [address] (Wo rk) Social History Tobacco [...] Rigoberto Albarran MD Section of Dermatology [facility] documented in this encounter Plan of Treatment Upcoming Encounters Date Type Specialty Care Team Description 03/26/2022 Office Visit Cardiology Vitaliy Nobles MD [facility] DR TADEO [place], [place] [address] (Wo rk) 06/10/2022 Office Visit Dermatology Laura Scherer MD [facility] DR TEJA GR-DERMAT [place], [place] [address] (Wo rk) documented as of [...] Component Value Ref Test Analysis Performed At [facility] gist Range Method Time Signature Surgical CERNER Pathology ? [facility] Report ? Provider: ?? RIGOBERTO ALBARRAN III Pt. Name: ?? NATALYA , DON E ?A ? Acc #: ?[id number] ? Pt. ? Col Date: ?? 3 [...] PATHOLOGY/CYTOLOGY ORDERABLE S Performing Organization Address City/[facility]/[place] [address] CERNER MILLENNIUM Specimen to [...] PATHOLOGY/CYTOLOGY ORDERABLE S Performing Organization Address City/[facility]/[place] [address] CERNER MILLENNIUM documented in this encounter Visit Diagnoses Diagnosis Psoriasis - Primary Other psoriasis Neoplasm of unspecified nature of bone, soft tissue, and skin Skin lesion of chest wall Unspecified disorder of skin and subcuta neous tissue Seborrheic psoriasis- scalp and ingtergl uteal area Other psoriasis documented in this encounter Care Teams Wire Coiler Relationship Specialty Start Date End Date Unknown PCP - General 10/04/12 01/24/13 None documented as of this encounter
--- OUTSIDE RECORDS SUMMARY | 2022-02-27 15:20 | XMS_ITS | Encounter Summary ---
:1945 Author Organization [facility] [place] [address] Care Team Providers Name Role Phone NeilSom conner STACIE Primary Care Provider Reason for Visit Reason Comments Establish Care OBST GOITER Encounter Details Date Type Department Care Team Description 01/25/2013 Office Visit General Surgery at Manny Mcknight er colloid, toxic, [facility] MD Eliseo nodular (Primary Dx) [facility] [place] GENERAL SURGERY [id number] [place], [place] [address] [phone] Social History Tobacco Use Types Packs/Day Years [...] the thyroid gland were obtained using a [employer] MicroMaxx and an HFL38/13-6 broadband linear array [...] on physical exam. ROS: No H/O asthma, [place], stroke, pulmonary embolus or phlebitis. Comprehensive review [...] Cardiology Vitaliy Nobles MD [facility] CARDIOLOGY [place], [place] [address] (Wo rk) 06/10/2022 Office Visit Dermatology Laura Scherer MD [facility] DR TEJA GR-DERMAT [place], [place] [address] (Wo rk) documented as of [...] 406 ms MUSE SYSTEM (Bezet) Calculated P [place] 52 degrees MUSE SYSTEM Calculated R [place] 0 degrees MUSE SYSTEM Calculated T [place] 40 degrees MUSE SYSTEM INTERPRETATION Normal sinus [...] storm documented in this encounter Care Teams Sampler Ovens Relationship Specialty Start Date End Date Som Holliday APRN PCP - General 01/25/13 04/15/[address] [place] [address] documented as of this encounter
--- OUTSIDE RECORDS SUMMARY | 2022-02-27 15:20 | XMS_ITS | Encounter Summary ---
:1945 Author Organization [facility] [place] [address] Care Team Providers Name Role Phone Angela Holliday APRN Primary Care Provider Encounter Details Date Type Department Care Team Description 01/25/2013 Clinical [place] [address] Social History Tobacco Use Types Packs/Day [...] Cardiology Vitaliy Nobles MD [facility] CARDIOLOG[facility] [place], [place] [address] (Wo rk) 06/10/2022 Office Visit Dermatology Laura Scherer MD [facility] DR TEJA GR-DERMAT [facility] [place], [place] [address] (Wo rk) documented as of this encounter Visit Diagnoses Not on filedocumented in this encounter Care Teams Sole Assessor Relationship Specialty Start Date End Date Agnela Holliday APRN PCP - General 01/25/13 04/15/[address] [place] [address] documented as of this encounter
--- OUTSIDE RECORDS SUMMARY | 2022-02-27 15:20 | XMS_ITS | Encounter Summary ---
:1945 Author Organization [facility] [place] [address] Care Team Providers Name Role Phone Unknown Primary Care Provider Unavailable Reason for Visit Reason Comments Other Encounter Details Date Type Department Care Team Description 10/05/2012 Telephone Dermatology at Health system Rigoberto Garcia III, [address] [place] [address] [facility] [phone] TEJA MARIE-DERMAT [place] [id number] (Wo rk) Social History Tobacco Use Types [...] Office Visit Cardiology Vitaliy Nobles MD [facility] ER [address] TADEO [place], [place] [address] (Wo rk) 06/10/2022 Office Visit Dermatology Laura Scherer MD [facility] DR TEJA MARIE-DERMAT [place], [place] [address] (Wo rk) documented as of this encounter Visit Diagnoses Not on filedocumented in this encounter Care Teams Manpower Development Manager Relationship Specialty Start Date End Date Unknown PCP - General 10/04/12 01/24/13 None documented as of this encounter
--- OUTSIDE RECORDS SUMMARY | 2022-02-27 15:20 | XMS_ITS | Encounter Summary ---
:1945 [place] [address] Care Team Providers Name Role Phone Holley Hollidayica STACIE Primary Care Provider Encounter Details Date Type Department Care Team Description 03/28/2013 [facility] Barbara Gomes MD Dx) [facility] [address] Siddiqui [place] [address] [phone] Social History Tobacco Use Types Packs/Day Years [...] please call the General Surgery nurse at [phone], since this may mean that you need morecalcium. Follow-up Appointment: Will be scheduled with Dr. Mcknight in 6 weeks Date and time as well as any required labs will be mailed to you Please call [phone] to confirm date and time of your [...] by calcium supplementation. Phone number for questions: [phone] before 5 PM weekdays [phone] after 5 PM and on weekends/holidays Please follow up with Urology as per their recommendations for Bob removal AttachmentsThe following attachments cannot be sent through Care Everywhere. THYROIDECTOMY: WHAT TO EXPECT AT HOME (ANDORRAN)URINARY CATHETER CARE: AFTER YOUR VISIT (ANDORRAN)documented in this encounter Medications at Time of [...] MD - 03/28/2013 3:43 PM EDT [facility] Operative Note Patient Name: Gregory Fatima : [id number] MR#: [id number] Case Date: 03/28/2013 Surgeon: Surgeon(s) and Role: [...] room. There were no known complications. Dr. Mckngiht was present and scrubbed for the entire [...] Operative Note Patient Name: Gregory Fatima : [id number] MR#: [id number] Case Date: 03/28/2013 Surgeon: Surgeon(s) and Role: [...] Nobles MD [facility] CARDIOLOGY [place], [place] [address] (Wo rk) 06/10/2022 Office Visit Dermatology Laura Scherer MD [facility] DR TEJA GR-DERMAT [facility] [place], [place] [address] (Wo rk) documented as of [...] Address City/State/ZIP Code Phon e Number [address] CERNER MILLENNIUM (ABNORMAL) POCT [...] CARE TEST ORDERABLE S Performing Organization Address City/[facility]/[place] [address] CERNER MILLENNIUM (ABNORMAL) POCT [...] Address City/State/ZIP Code Phon e Number [address] CERNER MILLENNIUM (ABNORMAL) POCT [...] CARE TEST ORDERABLE S Performing Organization Address City/[facility]/ZIP Code Phon e Number [address] CERNER MILLENNIUM (ABNORMAL) POCT [...] Address City/State/ZIP Code Phon e Number [address] CERNER MILLENNIUM (ABNORMAL) POCT [...] Organization Address City/State/[place] [address] CERNER MILLENNIUM (ABNORMAL) POCT [...] CARE TEST ORDERABLE S Performing Organization Address City/[facility]/ZIP Code Phon e Number [address] CERNER MILLENNIUM (ABNORMAL) POCT [...] Organization Address City/State/[place] [address] CERNER MILLENNIUM Specimen to Pathology (surgical or derm) (03/28/2013 12:14 PM EDT) Specimen Anatomical Collection Method Collection Time Receive d Time (Source) Location / / Volume Laterality AP Specimen 03/28/2013 12:14 03/28/2013 PM EDT 12:14 PM EDT [facility]ative [facility] - 03/28/2013 12:14 PM EDT Specimen requisition ordered. ??Separate Pathology report to follow Mesha Mcknight MD PATHOLOGY/CYTOLOGY ORDERABLE S Performing Organization Address City/State/[place] [address] [facility] Pathology Addendum Report (03/28/2013 12:03 PM EDT) Component Value Ref Test Analysis Performed At [facility] gist Range Method Time Signature Addendum [facility] Report ? [facility] ? Provider: ?? MESHA MCKNIGHT Pt. Name: ?? SHERIF FATIMARY Veda ? Acc #: ?[id number] ?Pt. MRN: ?[id number] ? Col Date: ?? 03/28/2013 ?/Sex: ?1945,(68 [...] MD PATHOLOGY/CYTOLOGY ORDERABLE S Performing Organization Address [facility]/State/[place] [address] [facility] Surgical Pathology Report (03/28/2013 12:03 PM EDT) Component Value Ref Test Analysis Performed At [facility] gist Range Method Time Signature Surgical [facility] Pathology ? [facility] Report ? Provider: ?? MESHA MCKNIGHT Pt. Name: ?? GREGORY FATIMA ? Acc #: ?[id number] ?Pt. MRN: ?[id number] ? Col Date: ?? 03/28/2013 ?/Sex: ?1945,(68 [...] JRP ? 03/31/13 Verified by: ? César STRNAGE, Ruben Yusuf ? Pathologist ? (Electronic Si [...] Name: ?? GREGORY FATIMA ? Acc #: ?[id number] ?Pt. MRN: ?[id number] ? Col Date: ?? 03/28/2013 ?/Sex: ?1945,(68 years),Male ? Rec Date: ?? 03/28/2013 ?LOC: ?[facility] ? SURGICAL PATHOLOGY ? SECTIONS/PROCESSING: Car Record Clerk sections are subm itted. (R6) ? B [...] MD PATHOLOGY/CYTOLOGY ORDERABLE S Performing Organization Address [facility]/State/ZIP Code Phon e Number [place] [phone] CERNER MILLENNIUM Frozen Section Report (03/28/2013 12:03 PM EDT) Component Value Ref Test Analysis Performed At [facility] Range Method Time Signature Frozen CERNER Section ? [facility] ? Provider: ?? MESHA MCKNIGHT Pt. Name: ?? GREGORY FATIMA ? Acc #: ?[id number] ?Pt. MRN: ?[id number] ? Col Date: ?? 03/28/2013 ?/Sex: ?1945,(68 years),Male ? Rec Date: ?? 03/28/2013 ?LOC: ?[facility] ? FROZEN SECTION REPORT ? ---Frozen Section Report--- ? Part A - Intraoperati ve gross consultation was performed. ??The case was ? discussed by phone with Dr. Mcknight, and no frozen ? section was performed. ? 03/31/13 ??Verified by: ??César STRANGE, Ruben Yusuf, [facility] gist ? The attending [facility] gist whose electronic signature appears on [...] Organization Address City/State/[place] [address] [facility] POCT Glucose (03/28/2013 12:00 PM EDT) P athologist Signature POC Glucose 134 60 - 199 CERNER mg/dL [facility] Comment: Supplemental ranges: <110 mg/dL before meals <200 mg/dL all other times of the day Specimen Anatomical Collection Method Collection Time Receive d Time (Source) Location / / Volume Laterality Blood specimen 03/28/2013 12:00 3 (specimen) PM EDT 12:00 PM EDT Mesha Mcknight MD POINT OF CARE TEST ORDERABLE S Performing Organization Address City/[facility]/ZIP [place] [address] [facility] Specimen to Pathology (surgical or derm) (03/28/2013 11:58 AM EDT) Specimen Anatomical Collection Method Collection Time Receive d Time (Source) Location / / Volume Laterality AP Specimen 03/28/2013 11:58 03/28/2013 AM EDT 11:58 AM EDT N[facility]ative [facility] - 03/28/2013 11:58 AM EDT Specimen requisition ordered. ??Separate Pathology report to follow Mesha Mcknight MD PATHOLOGY/CYTOLOGY ORDERABLE S Performing Organization Address City/[facility]/ZIP [place] [address] [facility] Antibody screen (03/28/2013 9:37 AM EDT) Analysis Performed At Patho logist Time Signature Ab Screen Negative [facility] Expires at [id number] [facility] [id number] on: MILLENNIUM Specimen Anatomical Collection Method Collection Time Receive d Time (Source) Location / / Volume Laterality Blood specimen 03/28/2013 9:37 AM 013 9:37 (specimen) EDT AM EDT Resulting Agency Comment Spec In Lab Mesha Mcknight MD BLOOD BANK ORDERABLES Performing Organization Address City/State/ZIP Code Phon e Number [place] [phone] [facility] [address] CERNER MILLENNIUM ABO/Rh Typing [...] Address City/State/ZIP Code Phon e Number [address] CERNER MILLENNIUM Differential, Automated [...] City/State/[place] [address] CERNER MILLENNIUM (ABNORMAL) Basic [...] supplied above were not validated at [facility]. Results from pediatri [...] Mcknight MD CHEMISTRY ORDERABLES Performing Organization Address City/[facility]/ZIP [place] [address] CERNER MILLENNIUM (ABNORMAL) CBC [...] Organization Address City/State/[place] [address] CERKERI CARVALHOIUM POCT Glucose (03/28/2013 9:17 AM EDT) P athologist Signature POC Glucose 108 60 - 199 CERNER mg/dL [facility] Comment: Supplemental ranges: <110 mg/dL before meals <200 mg/dL all other times of the day Specimen Anatomical Collection Method Collection Time Receive d Time (Source) Location / / Volume Laterality Blood specimen 03/28/2013 9:17 AM 013 9:17 (specimen) EDT AM EDT Mesha Mcknight MD POINT OF CARE TEST ORDERABLE S Performing Organization Address City/State/ZIP Code Phon e Number [address] [facility] Specimen to Pathology (surgical or derm) (03/28/2013 8:55 AM EDT) Specimen Anatomical Collection Method Collection Time Receive d Time (Source) Location / / Volume Laterality AP Specimen 03/28/2013 8:55 AM 3 8:54 EDT AM EDT Narrative [facility] - 03/28/2013 8:55 AM E DT Specimen requisition ordered. ??Separate Pathology report to follow Mesha Mcknight MD PATHOLOGY/CYTOLOGY ORDERABLE S Performing Organization Address City/State/ZIP Code Phon e Number [address] [facility] documented in this encounter Visit [...] override documented in this encounter Care Teams U.S. Revenue Officer Relationship Specialty Start Date End Date Angela Holliday APRN PCP - General 01/25/13 04/15/15 [address] [place] [address] documented as of this encounter
--- OUTSIDE RECORDS SUMMARY | 2022-02-27 15:20 | XMS_ITS | Encounter Summary ---
:1945 Author Organization [facility] [address] Care Team Providers Name Role Phone Angela Holliday APRN Primary Care Provider Reason for Visit Reason Onset Date Comments Other 03/30/2013 blood in catheter ba g Encounter Details Date Type Department Care Team Description 03/30/2013 Telephone General Surgery at [facility] Janneth Sharma, Other (blood in [facility] RN catheter bag) [place] [address] Social History Tobacco Use Types Packs/Day [...] Nobles MD [facility] DR TADEO [place], [place] [address] (Wo rk) 06/10/2022 Office Visit Dermatology Laura Scherer MD [facility] DR TEJA GR-DERMAT [place], [place] [address] (Wo rk) documented as of this encounter Visit Diagnoses Not on filedocumented in this encounter Care Teams Instrument Person Relationship Specialty Start Date End Date Angela Holliday APRN PCP - General 01/25/13 04/15/[address] [place] [address] documented as of this encounter
--- OUTSIDE RECORDS SUMMARY | 2022-02-27 15:20 | XMS_ITS | Encounter Summary ---
:1945 Author Organization [facility] [place] [address] Care Team Providers Name Role Phone Angela Holliday APRN Primary Care Provider Encounter Details Date Type Department Care Team Description 03/15/2013 Telephone General Surgery at [facility] Maddison Key, [place] [address] Social History Tobacco Use Types Packs/Day [...] [facility] ER DR TADEO [place], [place] [address] (Wo rk) 06/10/2022 Office Visit Dermatology Laura Scherer MD [facility] DR TEJA GR-DERMAT [place], [place] [address] (Wo rk) documented as of this encounter Visit Diagnoses Not on filedocumented in this encounter Care Teams Business Systems Analyst Relationship Specialty Start Date End Date Angela Holliday APRN PCP - General 01/25/13 04/15/[address] [place] [address] documented as of this encounter
--- OUTSIDE RECORDS SUMMARY | 2022-02-27 15:20 | XMS_ITS | Encounter Summary ---
:1945 Author Organization [facility] [place] [address] Care Team Providers Name Role Phone Angela Holliday APRN Primary Care Provider Encounter Details Date Type Department Care Team Description 03/30/2013 Telephone General Surgery at [facility] Cliff Nevarez, [place] [address] Social History Tobacco Use Types Packs/Day [...] [facility] ER CARDIOLOGY [place], [place] [address] (Wo rk) 06/10/2022 Office Visit Dermatology Laura Scherer MD [facility] ER DR TEJA GR-DERMAT [address], [place] [address] (Wo rk) documented as of this encounter Visit Diagnoses Not on filedocumented in this encounter Care Teams Transit Mix Operator Relationship Specialty Start Date End Date Angela Holliday APRN PCP - General 01/25/13 04/15/[address] [place] [address] documented as of this encounter
--- OUTSIDE RECORDS SUMMARY | 2022-02-27 15:20 | XMS_ITS | Encounter Summary ---
:1945 Author Organization [facility] [place] [address] Care Team Providers Name Role Phone Brody Berrios MD Primary Care Provider Reason for Visit Reason Comments Annual Exam Encounter Details Date Type Department Care Team Description 09/22/2011 Follow-Up Dermatology Arik Tipton Psoriasis (Primary Dx); [facility] MD Jorge Personal history of other malignant neop lasm of skin Drive [place] [phone] DERMATOLOGY DEPT . 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 His only complaints tail bone and scalp [...] changes: Arik Tipton MD Section of Dermatology [facility] documented in this encounter Plan of Treatment Upcoming Encounters Date Type Specialty Care Team Description 03/26/2022 Office Visit Cardiology Vitaliy Nobles MD [facility] [address] TADE[address] [place], [place] [address] (Wo rk) 06/10/2022 Office Visit Dermatology Laura Scherer MD [facility] DR TEJA GR-DERMAT [facility] [place] [place] [address] (Wo rk) documented as of this encounter Visit Diagnoses Diagnosis Psoriasis - Primary Other psoriasis Personal history of other malignant neop lasm of skin documented in this encounter Care Teams Stove Carriage Operator Relationship Specialty Start Date End Date Brody Berrios MD PCP - General 09/22/11 10/03/[address] [place] [address] [address] [place] [address] documented as of this encounter
--- OUTSIDE RECORDS SUMMARY | 2022-02-27 15:20 | XMS_ITS | Encounter Summary ---
:1945 Author Organization [facility] [place] [address] Care Team Providers Name Role Phone Adi Costello MD Primary Care Provider Reason for Visit Reason Comments Annual Exam ckeck his groin and melanoma follow-up Encounter Details Date Type Department Care Team Description 11/21/2010 Follow-Up Dermatology Arik Tipton Melanoma (Primary Dx) [facility] MD Jorge [place] [phone] DERMATOLOGY DEPT . 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 His only complaints are leg cramps, [...] changes: Arik Tipton MD Section of Dermatology [facility] documented in this encounter Plan of Treatment Upcoming Encounters Date Type Specialty Care Team Description 03/26/2022 Office Visit Cardiology Vitaliy Nobles MD [facility] [address] T[address] [place], [place] [address] (Wo rk) 06/10/2022 Office Visit Dermatology Laura Scherer MD [facility] DR TEJA GR-DERMAT [place], [place] [address] (Wo rk) documented as of this encounter Visit Diagnoses Diagnosis Melanoma - Primary Melanoma of skin, site unspecified documented in this encounter Care Teams Ship Mate Relationship Specialty Start Date End Date Adi Costello MD PCP - General 06/17/10 09/21/11 [address] [place] [address] documented as of this encounter
--- OUTSIDE RECORDS SUMMARY | 2022-02-27 15:20 | XMS_ITS | Encounter Summary ---
:1945 Author Organization [facility] [place] [address] Care Team Providers Name Role Phone Angela Holliday APRN Primary Care Provider Reason for Referral Surgical (Routine) - Closed Specialty Diagnoses / Procedures Referred By Contact Refer red To Contact General Surgery Diagnoses Elijah Villagomez MD Colacchio, Thomas A, MD [address] [place] [address] [place] [address] [place] [address] Phone: Fax: Referral ID Status Reason Start Date Expiration Date Visits V isits Requested Authorized [id number] Closed Specialty 01/25/2013 07/24/2013 1 1 Service Requested Reason for Visit Reason Comments Thyroid Problem Encounter Details Date Type Department Care Team Description 01/25/2013 Office Visit Endocrinology at [facility] Elijah Fuentes Goiter (Primary Dx) [facility] [address] [place] [phone] [place] [address] [phone] Social History Tobacco Use Types Packs/Day Years [...] History 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 All other [...] the thyroid gland were obtained using a Sonvoxappaxx and an HFL38/13-6 broadband linear array transducer. [...] Nobles MD [facility] [address] T[address] [place], [place] [address] (Wo rk) 06/10/2022 Office Visit Dermatology Laura Scherer MD [facility] DR TEJA GR-DERMAT [place], [place] [address] (Wo rk) Scheduled Referrals Name [...] Organization Address City/State/[place] [address] CERNER MILLENNIUM documented in this encounter Visit Diagnoses Diagnosis Goiter - Primary Goiter, unspecified documented in this encounter Care Teams Continuity Editor Relationship Specialty Start Date End Date Angela Holliday APRN PCP - General 01/25/13 04/15/[address] [place] [address] documented as of this encounter
--- OUTSIDE RECORDS SUMMARY | 2022-02-27 15:20 | XMS_ITS | Encounter Summary ---
:1945 [place] [address] Care Team Providers Name Role Phone MiyaLokeshAngela STACIE Primary Care Provider Encounter Details Date Type Department Care Team Description 03/28/2013 Anesthesia Event Main Operating Room Meredith Calvert MD [facility] [place] [address] [facility] Nolvia Riojas PA [facility] [place] [address] [place] [address] Anesthesia Record Procedure Summary Procedure Name [...] Nobles MD [facility] [address] T[address] [place], [place] [address] (Wo rk) 06/10/2022 Office Visit Dermatology Laura Scherer MD [facility] DR TEJA GR-DERMAT [place], [place] [address] (Wo rk) documented as of [...] Routine documented in this encounter Care Teams Lehr Attendant Relationship Specialty Start Date End Date Angela Holliday APRN PCP - General 01/25/13 04/15/[address] [place] [address] documented as of this encounter
--- OUTSIDE RECORDS SUMMARY | 2022-02-27 15:20 | XMS_ITS | Encounter Summary ---
:1945 Author Organization [facility] [place] [address] Care Team Providers Name Role Phone Angela Holliday APRN Primary Care Provider Encounter Details Date Type Department Care Team Description 03/30/2013 Telephone General Surgery at [facility] Cliff Nevarez, [place] [address] Social History Tobacco Use Types Packs/Day [...] Nobles MD [facility] [address] T[address] [place], [place] [address] (Wo rk) 06/10/2022 Office Visit Dermatology Laura Scherer MD [facility] DR TEJA GR-DERMAT [place], [place] [address] (Wo rk) documented as of this encounter Visit Diagnoses Not on filedocumented in this encounter Care Teams Motorbike Courier Relationship Specialty Start Date End Date Angela Holliday APRN PCP - General 01/25/13 04/15/[address] [place] [address] documented as of this encounter
--- OUTSIDE RECORDS SUMMARY | 2022-02-27 15:21 | XMS_ITS | Clinical Summary ---
:1945 Author Organization [facility] Address [address] [place] [address] Care Team Providers Name Role Phone Lovely [...] i n the results section. COVID-19 TEST [facility] Today 01/27/2022 14:30 LAB PCR EDT COVID-19 TESTING Routine 01/27/2022 14:30 Results for this EDT procedure are i n the results section. from Last 3 Months Results PSA TOTAL, DIAGNOSTIC (02/20/2022 9:04 EDT) Pathologist Sig nature PSA 2.7 <=6.5 ng/mL [facility] LABORATOR Y SERVICES Specimen Blood - Venous blood (substance) Narrative [facility] - 02/20/2022 18:17 EDT NOTE: Serum PSA concentration should not be in terpreted as absolute evidence for the presence or absence of malignant disease. Assayed on Siemens ADVIA Centaur XPT usi ng chemiluminescent technology.??Values obtained by using different assay methods cannot be used interchangeably. Performing Organization Address City/State/ZIP Code Phon e Number [facility] [address] [place] [address] SERVICES COVID-19 TEST [facility] LAB PCR (01/27/2022 14:30 EDT) Specimen Swab Performing Organization Address City/[facility]/ZIP Code Phon e Number [facility] [address] [place] [address] SERVICES COVID-19 TESTING (01/27/2022 14:30 EDT) COVID-19 rt-PCR Negative Negative [facility] MEDICAL Result Comment: CENTER LABORATORY [...] performed using the meliton SARS-CoV-2 assay ([employer] on the Meliton 6800 System Performing Lab Meliton 6800 [facility] Lab [facility] SERVICES Specimen Swab Performing Organization Address City/[facility]/ZIP Code Phon e Number [facility] [address] [place] [address] SERVICES from Last 3 Months Care Teams Digital Engineer Relationship Specialty Start Date End Date Lovely Vicente MD PCP - General 07/13/14
--- OUTSIDE RECORDS SUMMARY | 2022-02-27 15:21 | XMS_ITS | Encounter Summary ---
:1945 Author Organization [facility] Address [address] [place] [address] Care Team Providers Name Role Phone Lovely Vicente MD Primary Care Provider Encounter Details Date Type Department Care Team Description 08/11/2019 Lab Requisition [facility] Unknown, Provider, Pathology & Laboratory [facility] [address] [facility] [place] [address] Social History Tobacco Use Types Packs/Day Years [...] Pathologist Sig nature Salmonella PCR Negative Negative [facility]OR[facility]ORY SERVICES Shigella/Enteroinvasive Negative Negative [facility] R E. coli LABORATORY SERVICES HN LAB CAMPYLOBACTER PCR Negative Negative [facility] ER LABORATORY SERVICES Shiga Toxin PCR Negative Negative [facility]OR[facility]ORY SERVICES Specimen Feces - Specimen from rectum (specimen) Performing Organization Address City/State/ZIP Code Phon e Number [facility] [address] [place] [address] SERVICES documented in this encounter Visit Diagnoses Not on filedocumented in this encounter Care Teams Subway Car Repairer Relationship Specialty Start Date End Date Lovely Vicente MD PCP - General 07/13/14 documented as of this encounter
--- OUTSIDE RECORDS SUMMARY | 2022-02-27 15:21 | XMS_ITS | Encounter Summary ---
:1945 Author Organization [facility] Address [address] [place] [address] Care Team Providers Name Role Phone Unavailable Primary Care Provider Unavailable Encounter Details Date Type Department Care Team Description 03/05/2014 Hospital Encounter [facility]- Heather Unknown, Provider, [facility] [phone] [place] [address] (Work) [phone] Social History Tobacco Use Types Packs/Day Years Used Date Never Assessed Sex Assigned at Date Recorded Not on file documented as of this encounter Discharge Disposition Disposition Code Departure Means Destination Home or Self Snf documented in this encounter Plan of Treatment Not on filedocumented as of this encounter Visit Diagnoses Not on filedocumented in this encounter
--- OUTSIDE RECORDS SUMMARY | 2022-02-27 15:21 | XMS_ITS | Encounter Summary ---
:1945 Author Organization Health system Address [address] [place] [address] Care Team Providers Name Role Phone Lovely Vicente MD Primary Care Provider Encounter Details Date Type Department Care Team Description 01/01/2020 Lab Requisition [facility] Outr Resulting Lab, Pathology & Laboratory Provider [facility] [address] [place] [address] Social History Tobacco Use Types Packs/Day Years [...] nature PSA 2.1 0.0 - 6.5 ng/mL [facility] Specimen Blood - Venous blood (substance) Narrative [facility] - 01/02/2020 10:40 EDT NOTE: Serum PSA concentration should not be in terpreted as absolute evidence for the presence or absence of malignant disease. Assayed on Siemens ADVIA Centaur XPT usi ng chemiluminescent technology.??Values obtained by using different assay methods cannot be used interchangeably. Performing Organization Address City/State/ZIP Code Phon e Number [facility] [address] [place] [address] SERVICES documented in this encounter Visit Diagnoses Not on filedocumented in this encounter Care Teams Hand Painter Relationship Specialty Start Date End Date Lovely Vicente MD PCP - General 07/13/14 documented as of this encounter
--- OUTSIDE RECORDS SUMMARY | 2022-02-27 15:21 | XMS_ITS | Encounter Summary ---
:1945 Author Organization [facility] Address [address] [place] [address] Care Team Providers Name Role Phone Lovely Vicente MD Primary Care Provider Encounter Details Date Type Department Care Team Description 04/04/2021 Lab Requisition [facility] Outr Resulting Lab, Pathology & Laboratory Provider [facility] [address] [place] [address] Social History Tobacco Use Types Packs/Day Years [...] Pathologist Sig nature Salmonella PCR Negative Negative [facility] Shigella/Enteroinvasive Negative Negative [facility]ORY SERVICES HN LAB CAMPYLOBACTER PCR Negative Negative [facility] ER [facility] Shiga Toxin PCR Negative Negative [facility] Specimen Feces - Specimen from rectum (specimen) Performing Organization Address City/State/ZIP Code Phon e Number [facility] [address] [place] [address] SERVICES documented in this encounter Visit Diagnoses Not on filedocumented in this encounter Care Teams Patient Relations Representative Relationship Specialty Start Date End Date Lovely Vicente MD PCP - General 07/13/14 documented as of this encounter
--- OUTSIDE RECORDS SUMMARY | 2022-02-27 15:21 | XMS_ITS | Encounter Summary ---
:1945 Author Organization [facility] Address [address] [place] [address] Care Team Providers Name Role Phone Unknown, Provider Primary Care Provider Encounter Details Date Type Department Care Team Description 07/11/2014 Hospital Encounter [facility]- Heather Unknown, Provider, [facility] [address] [place] [address] [place] [address] (Work) [phone] Social History Tobacco Use Types Packs/Day Years Used Date Never Assessed Sex Assigned at Date Recorded Not on file documented as of this encounter Discharge Disposition Disposition Code Departure Means Destination Home or Self Senior Living documented in this encounter Plan of Treatment Not on filedocumented as of this encounter Visit Diagnoses Not on filedocumented in this encounter Care Teams Operator Electronic Warfare Relationship Specialty Start Date End Date Unknown, Provider, PCP - General 03/07/14 07/12/14 documented as of this encounter
--- OUTSIDE RECORDS SUMMARY | 2022-02-27 15:21 | XMS_ITS | Encounter Summary ---
:1945 Author Organization [facility] Address [address] [place] [address] Care Team Providers Name Role Phone Lovely Vicente MD Primary Care Provider Encounter Details Date Type Department Care Team Description 02/20/2022 Lab Requisition [facility] Outr Resulting Lab, Pathology & Laboratory Provider [facility] [address] [place] [address] Social History Tobacco Use Types Packs/Day Years [...] Pathologist Sig nature PSA 2.7 <=6.5 ng/mL [facility] Specimen Blood - Venous blood (substance) Narrative [facility] - 02/20/2022 18:17 EDT NOTE: Serum PSA concentration should not be in terpreted as absolute evidence for the presence or absence of malignant disease. Assayed on Siemens ADVIA Centaur XPT usi ng chemiluminescent technology.??Values obtained by using different assay methods cannot be used interchangeably. Performing Organization Address City/State/ZIP Code Phon e Number [facility] [address] [place] [address] SERVICES documented in this encounter Visit Diagnoses Not on filedocumented in this encounter Care Teams Director Medicaid Relationship Specialty Start Date End Date Lovely Vicente MD PCP - General 07/13/14 documented as of this encounter
--- OUTSIDE RECORDS SUMMARY | 2022-02-27 15:21 | XMS_ITS | Encounter Summary ---
:1945 Author Organization [facility] Address [address] [place] [address] Care Team Providers Name Role Phone Unknown, Provider Primary Care Provider Encounter Details Date Type Department Care Team Description 03/05/2014 Results Only [facility] Eris Taylor MD Laboratory Services - [address] [place] [address] [place] [address] [phone] Social History Tobacco Use Types Packs/Day Years Used Date Never Assessed Sex Assigned at Date Recorded Not on file documented as of this encounter Plan of Treatment Not on filedocumented as of this encounter Procedures Procedure Name Priority Date/Time Associated Diagnosis Comme [facility] SURGICAL PATHOLOGY Routine 03/05/2014 10:34 Resul [...] ? DON HOANG ? Accession #: ? [id number] ? : ? 1945 (Age: 68) ??M [...] Organization Address City/State/ZIP Code Phon e Number [facility] [address] [place] [address] SERVICES [facility] [address] [place] [address] documented in this encounter Visit Diagnoses Not on filedocumented in this encounter Care Teams Color Technician Relationship Specialty Start Date End Date Unknown, Provider, PCP - General 03/07/14 07/12/14 documented as of this encounter
--- OUTSIDE RECORDS SUMMARY | 2022-02-27 15:21 | XMS_ITS | Encounter Summary ---
:1945 Author Organization [facility] Address [address] [place] [address] Care Team Providers Name Role Phone Lovely Vicente MD Primary Care Provider Encounter Details Date Type Department Care Team Description 01/17/2021 Lab Requisition [facility] Outr Resulting Lab, Pathology & Laboratory Provider [facility] [address] [place] [address] Social History Tobacco Use Types Packs/Day Years [...] nature PSA 2.9 0.0 - 6.5 ng/mL [facility] Specimen Blood - Venous blood (substance) Narrative [facility] - 01/17/2021 17:46 EDT NOTE: Serum PSA concentration should not be in terpreted as absolute evidence for the presence or absence of malignant disease. Assayed on Siemens ADVIA Centaur XPT usi ng chemiluminescent technology.??Values obtained by using different assay methods cannot be used interchangeably. Performing Organization Address City/State/ZIP Code Phon e Number [facility] [address] [place] [address] SERVICES documented in this encounter Visit Diagnoses Not on filedocumented in this encounter Care Teams Liquor Merchant Relationship Specialty Start Date End Date Lovely Vicente MD PCP - General 07/13/14 documented as of this encounter
--- OUTSIDE RECORDS SUMMARY | 2022-02-27 15:21 | XMS_ITS | Encounter Summary ---
:1945 Author Organization [facility] Address [address] [place] [address] Care Team Providers Name Role Phone Lovely Vicente MD Primary Care Provider Encounter Details Date Type Department Care Team Description 01/28/2022 Lab Requisition [facility] Outr Resulting Lab, Pathology & Laboratory Provider [facility] [address] [place] [address] Social History Tobacco Use Types Packs/Day Years Used Date Never Assessed Sex Assigned at Date Recorded Not on file documented as of this encounter Plan of Treatment Not on filedocumented as of this encounter Procedures Procedure Name Priority Date/Time Associated Diagnosis Comme nts COVID-19 TEST [facility] Today 01/27/2022 14:30 LAB PCR EDT COVID-19 TESTING Routine 01/27/2022 14:30 Results for this EDT procedure are i n the results section. documented in this encounter Results COVID-19 TEST [facility] LAB PCR (01/27/2022 14:30 EDT) Specimen Swab Performing Organization Address City/State/ZIP Code Phon e Number [facility] [address] [place] [address] SERVICES COVID-19 TESTING (01/27/2022 14:30 EDT) COVID-19 [...] was performed using the meliton SARS-CoV-2 assay ([employer] on the Meliton 6800 System Performing Lab [facility] [address] [facility] Lab [facility] Specimen Swab Performing Organization Address City/State/ZIP Code Phon e Number [facility] [address] [place] [address] SERVICES documented in this encounter Visit Diagnoses Not on filedocumented in this encounter Care Teams Nursing Care Partner Relationship Specialty Start Date End Date Lovely Vicente MD PCP - General 07/13/14 documented as of this encounter
--- OUTSIDE RECORDS SUMMARY | 2022-02-27 15:21 | XMS_ITS ---
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 Problem Critical ischemia I99.8 Active of lower extremity Problem Atherosclerosis I70.90 Active 3871 6007 Problem Type 2 diabetes E11.628 Active mellitus with other skin complications Problem 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 40 ; Acquired deformi ty of right foot M21.961 ; L luis term current use of i nsulin Z79.4 ; History of art erial bypass of lower extremi ty Z95.828 ; Atherosclerosis I70.90 and History of Lisfr anc amputation of fo ot Z89.439 [facility] Feb, Type 2 diabet es mellitus [address] [place], [place] with diabe [place]ic neuropathy, [address] unspecified E11. 40 ; Acquired deformi ty of right foot M21.961 ; L luis term current use of i nsulin Z79.4 ; History of art erial bypass of lower extremi ty Z95.828 ; Atherosclerosis I70.90 and History of Lisfr anc amputation of fo ot Z89.439 [facility] November, [place] [address] [facility] [facility] November, Type 2 [place] [address] with diabeti c neuropathy, unspecified E11. 40 ; Acquired deformi ty of right foot M21.961 ; L luis term current use of i nsulin Z79.4 ; History of art erial bypass of lower extremi ty Z95.828 ; Atherosclerosis I70.90 and History of Lisfr anc amputation of fo ot Z89.439 [facility] 10 Aug, 2019 Type 2 [place] [address] with other skin complications E1 1.628 ; Tinea pedis of l eft foot B35.3 ; Type 2 d iabetes mellitus with di abetic neuropathy, unsp ecified E11.40 ; Acquire d deformity of right foot M2 1.961 ; skilled nursing current use of insulin Z79.4 ; History of arterial bypass of lower extremity Z95.828 and Athe rosclerosis I70.90 [facility] Jun, [place] [address] [facility] Jun, [place] [address] [address] Jun, Type 2 diabet es mellitus [place], [place] with other skin [address] complications E1 1.628 ; Acquired deformi ty of right foot M21.961 ; T ype 2 diabetes mellitu s with diabetic neuropa thy, unspecified E11. 40 ; factory manager current use of insulin Z79.4 and Histor y of arterial bypass of lower extremity Z95.82 8 [facility] [address] [facility] Feb, Type 2 [place] [address] with other s kin complications E1 1.628 ; Acquired deformi ty of right foot M21.961 ; T ype 2 diabetes mellitu s with diabetic neuropa thy, unspecified E11. 40 ; skilled nursing current use of insulin Z79.4 and Histor y of arterial bypass of lower extremity Z95.82 8 [facility] November, Tinea pedis o f left foot [place], [place] B35.3 ; Ty pe 2 diabetes [address] mellitus with ot her skin complications E1 1.628 ; Acquired deformi ty of right foot M21.961 ; T ype 2 diabetes mellitu s with diabetic neuropa thy, unspecified E11. 40 ; factory manager current use of insulin Z79.4 and Histor y of arterial bypass of lower extremity Z95.82 8 [facility] November, [place] [address] [address] Aug, Type 2 diabet es mellitus [place], [place] with diabe tic neuropathy, [address] unspecified E11. 40 ; Acquired deformi ty of right foot M21.961 ; P eripheral arterial disease I73.9 ; History of arter ial bypass of lower extremi ty Z95.828 ; skilled nursing curren t use of insulin Z79.4 an d History of Lisfranc amputat ion of foot Z89.439 UNKNOWN Jul, [facility] 11 Jun, 2018 Type 2 [place] [address] with diabeti c neuropathy, unspecified E11. [address] [facility] Apr, Edema of both legs R60.0 ; [place], [place] Acquired d eformity of right [address] foot M21.961 ; P eripheral arterial disease I73.9 ; History of arter ial bypass of lower extremi ty Z95.828 ; factory manager curren t use of insulin Z79.4 an d Type 2 diabetes mellitu s with diabetic neuropa thy, unspecified E11. [address] [facility] Mar, [place] [address] [address] Mar, Edema of both legs R60.0 ; [place] Acquired d eformity of right [address] foot M21.961 ; P eripheral arterial disease I73.9 ; History of arter ial bypass of lower extremi ty Z95.828 ; factory manager curren t use of insulin Z79.4 an d Type 2 diabetes mellitu s with diabetic neuropa thy, unspecified E11. 40 [facility] Feb, Edema of both legs R60.0 ; [place] [address] Ulcer of lef t calf, limited to breakdown of skin L97.221 ; Acquired defor mity of right foot M21.9 61 ; Peripheral arter ial disease I73.9 ; History of arterial bypass of lower extremity Z95.828 ; Long t erm current use of insulin Z 79.4 and Type 2 diabetes mellitus with diabetic ne uropathy, unspecified E11. 40 [facility] 1 Feb, [facility] [place] [address] [facility] Feb, Edema of both legs R60.0 ; [place] [address] Ulcer of rig ht calf, limited to [...] CENTER [address] [facility] Feb, [place] [address] [facility] [address] [facility] [address] Feb, [place] [address] [facility] [address] [facility] [address] Jan, [place] [address] [facility] [address] [facility] [address] Jan, [place] [address] [facility] [address] [facility] [place] Jan, [place] [address] [facility] [address] [facility] [address] Jan, [place] [address] [facility] [address] [facility] [place], [place] [address] [facility] [address] [facility] [address] Dec, [place] [address] [facility] [address] [facility] [address] Dec, [place] [address] [facility] [address] [facility] [address] Dec, [place] [address] [facility] [address] [facility] [address] Dec, [place] [address] [facility] Dec, [place] [address] [facility] [address] [facility] Dec, [place] [address] [facility] November, [place] [address] [facility] November, [place] [address] [facility] November, [place] [address] [facility] November, [place] [address] [facility] November, [place] [address] [facility] [address] [facility] November, [place] [address] UNKNOWN November, [facility] [address] November, OFFICE [place] [address] [facility] November, [place] [address] [facility] Oct, [place], [place] [address] [facility] [address] [facility] Oct, [place] [address] [facility] [address] [facility] Oct, [place] [address] [facility] [address] 18 Oct, 2017 [place] [address] [facility] 16 Oct, 2017 [place] [address] [facility] [address] 16 Oct, 2017 [facility] [address] [facility] Oct, [place] [address] [facility] Oct, [place] [address] [facility] Oct, [place] [address] [facility] [address] Sep, [facility] [address] [facility] Sep, [place] [address] [facility] [address] Sep, [place] [address] [facility] [address] Sep, [place] [address] [facility] [address] Sep, [place] [address] [facility] [address] Sep, Critical ischemi a of lower [place] [address] extremity I 99.8 ; Local infection of the skin and subcutaneous tis lindsey, unspecified L08. 9 and Type 2 diabetes mellitu s with other skin complicatio ns E11.628 [facility] Sep, [place] [address] [facility] [address] [facility] [address] Sep, [place] [address] [facility] [address] [facility] [address] Sep, [place] [address] [facility] [address] [facility] [address] 14 Sep, [address] [place] [address] [facility] [address] [facility] Sep, [place] [address] [facility] [address] [facility] Sep, [place] [address] [facility] [address] [facility] Sep, [place] [address] [facility] Sep, [place] [address] [facility] [address] [facility] [address] Aug, [place] [address] [facility] [address] [place] Aug, [facility] [address] [facility] [address] Aug, [place] [address] SURGERY [address] [facility] Aug, [place] [address] SURGERY [facility] Aug, [place] [address] [facility] [address] [facility] Aug, [place] [address] ORTHOPEDIC OFFICE [address] [facility] Aug, Pre-op exam Z01.818 [place] [address] [facility] [address] [facility] Aug, [place] [address] [facility] Aug, [place] [address] [facility] Aug, [place] [address] IMMUNIZATIONS No Known Immunizations SOCIAL HISTORY Qualifiers [...] subcutaneously 22 24h Active units/mL daily Pen [place] Active Ciclopirox Externally Twice 1 application 12h [...] 1.8 CULTURE ANAEROBIC 2017-10-12 RESULT 1 [id number] SENSITIVITY ORGANISM 1 2017-10-12 Penicillin 16 Ampicillin 4 Ciprofloxacin <=0.5 Levofloxacin 2 Erythromycin <=0.25 Linezolid 2 Vancomycin <=0.5 Tetracycline <=1 Tigecycline <=0.12 CULTURE WOUND 2017-10-12 X Chest 1V 2017-09-29 See Below For [...] For Report MR Lower Ext R w/o ([id number]) 2017-09-16 See Below For Report CR C-ARM [...] PT/INR 2017-09-14 PT 13.2 9.3-11.4 INR 1.3 PREALBUMIN 2017-09-09 PREALBUMIN 23 9-32 SED RATE 2017-09-09 ESR 30 0-20 X Foot R 3V 2017-09-09 See Below For Report CRP-INFLAM 2017-09-09 CRP 1.1 0.0-0.9 CBC WITHOUT [...] A1c 03/04/18 - 6.7, [facility] [facility], f/u - bilateral leg edema, Pt [...] at wound center,lab work done 03/07/[address] [facility], Patient came in with tubigrip bilateral , wound clin est, wound clinest, Wound CTR-follow up, Wound CTR-follow up, Wound CTR-follow up, Peer to Peer w/ Dr. Espino, Wound CTR-follow up, Wound CTR-follow up, Farmworker Machine Documentation, LAB, Wound CTR-follow up, Wound CTR-follow up, Wound CTR-follow up, Wound CTR-follow up, LAB, LAB, Wound CTR- follow up, Wound CTR-follow up, Wound CTR-follow up, Farmworker Machine Documentation, [facility], Wound CTR-follow up, Wound CTR-follow up, Pull PICC Line, Wound CTR-follow up, Wound CTR-follow up, LAB, Still taking doxycycline 100mg? , Wound CTR-follow up, Wound CTR-follow up, Wound CTR-follow up, Farmworker Machine Documentation, Wound CTR-follow up, Wound CTR-follow up, Call back, Farmworker [employer] Documentation, Farmworker [employer] Documentation, Farmworker [employer] Documentation, Wound CTR-follow up, WCC, Wound CTR-follow up, Wound CTR-follow up, labs, D/C planning, bailey smetatarsal amputation of right foot, LAB, LAB, Wound CTR-NEW Insurance Providers [facility] Health Member Patient Patient Patient Patient Patient Subscriber Subscriber Subscriber Group Insurance Plan Plan Plan Plan ID Relationship Address Phone Name Date of ID Name Date of No Type Insurance Insurance Insurance Coverage to Subscriber Address Phone Name Dates SELF PAY [address] STREET SELF PAY self [place] [id number] AFTER [place]UE [place] AFTER BLUE [facility] [address] [address]-BLUE [phone] S-BLUE [place] [id number] [address] [place] [address] [place] OTHER [address] [place] [id number] OTHER GREGORY [id number] GRANT 1^MAIN [facility] [facility] PAYOR [id number] MEDICARE 3000 [employer]FF[place] MEDICARE self G[place] [id number] [facility] [id number]
--- OUTSIDE RECORDS SUMMARY | 2022-03-04 14:48 | XMS_ITS | Encounter Summary ---
:1945 [place] [address] Care Team Providers Name Role Phone Lovely Vicente MD Primary Care Provider Encounter Details Date Type Department Care Team Description 02/24/2022 Orders Only Cardiology at [facility] Liz Poole, Chronic systolic heart [facility] [place] [address] Cardiology Dept [place], [place] [address] Social History Tobacco Use Types [...] [facility] ER DR TADEO [place], [place] [address] (Wo rk) 06/10/2022 Office Visit Dermatology Laura Scherer MD [facility] ER DR TEJA GR-DERMAT [place], [place] [address] (Wo rk) Scheduled Orders Name Type Priority Associated Diagnoses Order S chedule Basic Metabolic Panel Lab Routine Chronic systolic he art Expected: 03/03/2022 (non-fasting) failure (Approximate), Expires: 2022 documented as of this encounter Visit Diagnoses Diagnosis Chronic systolic heart failure documented in this encounter Care Teams Unit Educator Relationship Specialty Start Date End Date Lovely Vicente MD PCP - General 04/16/[address] [place] [address] documented as of this encounter
--- OUTSIDE RECORDS SUMMARY | 2022-03-04 14:48 | XMS_ITS | Encounter Summary ---
:1945 Author Organization [facility] Address [facility] [place] [address] Care Team Providers Name Role Phone Lovely Vicente MD Primary Care Provider Reason for Visit Auth/Cert Specialty Diagnoses / Procedures Referred By Contact Refer red To Contact Diagnoses ASCVD (arteriosclerotic cardiovascular disease) [I25.10] Vitaliy Nobles MD [facility] Procedures PRO PERC TRLUML CORONARY STENT W/ANGIO ONE ART/BRANCH CARDIAC CATHETERIZATION STENT PLACEMENT-SINGLE MAJOR CORONARY ARTERY OR BRANCH [facility] [place] [address] Referral ID Status Reason Start Date Expiration Date Visits Requ ested Visits Authorized [id number] 1 1 Encounter Details Date Type Department Care Team Description 01/30/2022 Surgery Slag Worker Asa Coulter MD CARDIAC CATHETERIZATION [facility] [place] [address] [place] [address] [phone] (Wo rk) Social History Tobacco Use Types [...] and Clopidogrel. Please follow up with your campaign management senior manager in the next 4-6 weeks. We have made a referral to cardiac rehab. Please see the attached instructions regarding care to your right wrist access site. AttachmentsThe following attachments cannot be sent through Care Everywhere. Coronary Angiogram: Post-op (Urdu)documented in this encounter Medications at Time of [...] tablet by mouth 90 tablet 3 12/13/19 (Protonix) 40 mg daily. Tablet, Delayed Release [...] by mouth 0 04/1402/26/2022 mg Tablet daily. aspirin 81 mg Capsule 1 capsule by Per 14 capsule 0 01/31/20 22 02/13/2022 PO/OG/NG route daily for 14 days. documented as of this encounter Progress Notes Carlos Alberto Murray, RN - 01/30/2022 4:54 PM EDT [facility] Short Stay Unit Discharge Note All relevant [...] SSU team Don has history of prior VA and CABG. I had referred him to cardiac rehab at [facility] last month per HF team. He was waiting until this intervention before starting the program. Reviewed managing angina /use of sl nitroglycerin. Given parameters for home exercise. 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 We discussed short walks several times per day. Will send [facility] his discharge summary from this admission. The patient should be contacted by the Program within 1- 2 weeks from discharge. Brief Op Note - Vitaliy Nobles MD - 01/30/2022 10:19 AM EDT Images from the original note were not included. [facility] [place] [id number] CORONARY ANGIOGRAM AND PERCUTANEOUS CORONARY INTERVENTION REPORT Patient: Don Fatima : 1945 MR number: [id number] Date of Service: 01/30/2022 Poultry Farmer Egg: Vitaliy Nobles MD Fellow: KEYON Elizabeth INDICATION: [...] a long 2.0 x 26 mm ORION Hesston TUCKER stent and positioned it at the [...] using a 2.0 x 26 mm ORION Hesston TUCKER stent. This completes the revascularization ofall [...] 03/26/2022 Office Visit Cardiology Vitaliy Nobles MD [facility] [address] T[address] [place], [place] [address] ([facility]) 06/10/2022 Office Visit Dermatology Laura Scherer MD [facility] DR TEJA GR-DERMAT [place], [place] [address] ([facility]) Scheduled Orders Name Type Priority Associated Diagnoses [...] P athologist Signature Neutrophils % 71.8 % [facility] Neutr Abs (ANC) 3.96 1.70 - [facility] 6.10 [facility] x10(3)/[facility] LABORATORY Lymphocytes % 16.3 % [facility] Lymphocytes Abs 0.9 0.9 - 3.2 [facility] x10(3)/[facility] LABORATORY Monocytes % 10.0 % [facility] Monocyte Abs 0.6 0.3 - 0.9 [facility] x10(3)/[facility] LABORATORY Eosinophils % 0.5 % [facility] Eosinophils Abs 0.0 0.0 - 0.4 [facility] x[facility] LABOR[facility]ORY Basophils % 0.5 % [facility] Basophils Abs 0.0 0.0 - 0.1 [facility] x10(3)/[facility] LABORATORY Immature Gran % 0.90 % ST. [...] Gran Abs 0.05 (H) 0.00 - 0.04 x10(3)/[facility] LABORATORY Specimen Anatomical Collection Method Collection Time Receive d Time (Source) Location / / Volume Laterality Blood 01/30/2022 2:12 PM 2 2:37 EDT PM EDT Resulting Agency Comment Spec In Lab Eddi Elizabeth Jr., MD HEMATOLOGY ORDERABLES Performing Organization Address City/State/[place] [address] (ABNORMAL) Hemogram (01/30/2022 2:12 PM EDT) Analysis Performed At Patho logist Time Signature WBC 5.5 4.0 - 9.5 [facility] x10(3)/[facility] LABORATORY RBC 4.30 (L) 4.58 - [facility] 5.54 [facility] x10(6)/[facility] LABORATORY Hemoglobin 12.7 (L) 13.7 - [facility] 16.[facility] g/dL [facility] Hematocrit 39.4 (L) 40.5 - [facility] 48.5 % [facility] LABORATORY MCV 91.6 82.9 - [facility] 93.1 fL [facility]ORY MCH 29.5 27.5 - [facility] 32.1 pg [facility] MCHC 32.2 32.0 - [facility] 35.7 g/dL [facility]ORY Platelets 172 145 - 357 [facility] x10(3)/[facility] LABORATORY RDWSD 54.5 (H) 36.0 - [facility] 45.0 [facility] LABORATORY RDWCV 16.4 (H) 11.4 - [facility] 13.8 % [facility] LABORATORY MPV 9.2 7.6 - 12.9 [facility] LABORATORY nRBC % Auto 0.0 % [facility] nRBC Abs Auto 0.000 0.000 - [facility] 0.000 [facility] x10(3)/[facility] LABORATORY Specimen Anatomical Collection Method Collection Time Receive d Time (Source) Location / / Volume Laterality Blood 01/30/2022 2:12 PM 2 2:37 EDT PM EDT Resulting Agency Comment Spec In Lab Eddi Elizabeth Jr., MD HEMATOLOGY ORDERABLES Performing Organization Address City/State/[place] [address] (ABNORMAL) Basic Metabolic Panel (non-fasting) (01/30/2022 2:12 PM EDT) P athologist Signature Glucose Lvl 163 65 - 199 [facility] mg/dL [facility]ORY Comment: Diabetes: >=200 mg/dL plus symp toms BUN 30 (H) 10 - 20 mg/dL [facility]ORY Creatinine 1.47 0.80 - [...] m?? [facility] Comment: This patient's estimated GFR [...] Nobles MD CHEMISTRY ORDERABLES Performing Organization Address City/[facility]/ZIP Code Phon e Number [address] POCT Glucose (01/30/2022 1:41 PM EDT) athologist Signature POC Glucose 148 65 - 199 [facility] mg/dL [facility] Comment: Supplemental ranges: <140 mg/dL before meals <180 mg/dL all other times of the day Specimen Anatomical Collection Method Collection Time Receive d Time (Source) Location / / Volume Laterality Blood 01/30/2022 1:41 PM 2 1:41 EDT PM EDT Vitaliy Nobles MD POINT OF CARE TEST ORDERABLE S Performing Organization Address City/[facility]/ZIP Code Phon e Number [address] POCT Glucose (01/30/2022 10:48 AM EDT) athologist Signature POC Glucose 193 65 - 199 [facility] mg/dL [facility]ORY Comment: Supplemental ranges: <140 mg/dL before meals <180 mg/dL all other times of the day Specimen Anatomical Collection Method Collection Time Receive d Time (Source) Location / / Volume Laterality Blood 01/30/2022 10:48 01/30/2022 AM EDT 10:48 AM EDT Vitaliy Sandra Nobles MD POINT OF CARE TEST ORDERABLE S Performing Organization Address City/State/[place] [address] EKG 12 Lead (01/30/2022 10:33 AM EDT) Component Value Ref Range Test Analysis Performed Pathologis t Method Time At Signature Ventricular rate 64 BPM MUSE SYSTEM Atrial Rate 64 BPM MUSE SYSTEM P-R Interval 162 ms MUSE SYSTEM QRS Duration 94 ms MUSE SYSTEM Q-T Interval 422 ms MUSE SYSTEM QTC Calculated 435 ms MUSE SYSTEM (Bezet) Calculated P [place] 41 degrees MUSE SYSTEM Calculated R [place] -27 degrees MUSE SYSTEM Calculated T [place] 104 degrees MUSE SYSTEM INTERPRETATION Normal sinus rhythm MUSE SYSTEM Anterolateral infarct (cited on or before 09-DEC-2021) Abnormal ECG When compared with ECG of 10-DEC-2021 11:17, No significant change was found Confirmed by Gary Perez ([id number]) on 01/30/2022 5:57:5 2 PM Specimen Anatomical Collection Method Collection Time Receive d Time (Source) Location / / Volume Laterality 01/30/2022 10:33 01/30/2022 5:57 AM EDT PM EDT Vitaliy Sandra Nobles MD ECG ORDERABLES Performing Organization Address City/[facility]/ZIP Code Phon e Number MUSE SYSTEM CARDIAC CATHETERIZATION (01/30/2022 10:16 AM EDT) Specimen (Source) Anatomical Location Collection Method / Collectio n Time Received Time / Laterality Volume Narrative CARDIOMAC SYSTEM - 01/30/2022 2:09 PM ED T ?[facility] ? Cardiac Cathete rization/Intervention Report ? Patient Name: Don Fatima. ? Procedure Date: 01/30/2022 ? A #: [id number] ? Primary Physician: Nobles, Vitaliy P ? Case #: [id number] ? File Name: [id number] ? Catheterization Order Number: [id number] ? [facility] ? Final Report [place], [place] ? Patient Name: ? Don E. Stewa rt ? ID#: ?[id number] ? : ?1945 ? Procedure Date: ? January 30, 2022 ? Case #: ? [id number] ? Room: ? 1 ? Case Physician: [...] director of cardiac cath lab visit is stable kn own CAD. Chest [...] guiding catheter an d a 3.[address] [facility] [place] [address] ??20 Mhz ?using Manual pullback. ??Imagin [...] ?? A premounted 2.00 x 26 mm [place] Hesston (TUCKER) ? was deployed wi th a [...] Wedelivered along 2.0 x 26 mm ORION Hesston ? TUCKER stent and p ositioned it [...] administered prior to arrival in the director of cardiac cath lab. ?Recommended anti-platelet/anti- thrombotic regimen: ?Continue aspirin [...] may require ?modification of this regimen. C [facility] Interventional Cardiology for ?questions. ?The 1 year [...] using a 2.0 x 26 mm ORION Hesston TUCKER stent. ?This completes the revasculariz ation [...] MD CARDIAC CATH ORDERABLES Performing Organization Address City/[facility]/ZIP Code Phon e Number CARDIOMAC SYSTEM (ABNORMAL) POCT Glucose (01/30/2022 9:04 AM EDT) P athologist Signature POC Glucose 212 (H) 65 - 199 [facility] mg/dL [facility]ORY Comment: Supplemental ranges: <140 mg/dL before meals <180 mg/dL all other times of the day Specimen Anatomical Collection Method Collection Time Receive d Time (Source) Location / / Volume Laterality Blood 01/30/2022 9:04 AM 2 9:04 EDT AM EDT Vitaliy Nobles MD POINT OF CARE TEST ORDERABLE S Performing Organization Address [facility]/ZIP [place] [address] (ABNORMAL) POCT Glucose (01/30/2022 8:10 AM EDT) P athologist Signature POC Glucose 224 (H) 65 - 199 [facility] mg/dL [facility] Comment: Supplemental ranges: <140 mg/dL before meals <180 mg/dL all other times of the day Specimen Anatomical Collection Method Collection Time Receive d Time (Source) Location / / Volume Laterality Blood 01/30/2022 8:10 AM 2 8:10 EDT AM EDT Vitaliy Nobles MD POINT OF CARE TEST ORDERABLE S Performing Organization Address City/[facility]/ZIP [place] [address] documented in this encounter Visit Diagnoses Diagnosis ASCVD (arteriosclerotic cardiovascular d isease) Unspecified cardiovascular disease 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 ASHD (arteriosclerotic heart disease) Coronary atherosclerosis of unspecified type of vessel, [place] or graft ASCVD (arteriosclerotic cardiovascular d isease) Unspecified cardiovascular disease documented in this encounter Admitting Diagnoses Diagnosis CAD (coronary artery disease) Coronary atherosclerosis of unspecified type of vessel, [place] or graft documented in this encounter Administered [...] Given 02/2022 10:11 AM EDT 100 mcg (ELECTRONIC GLUER) ONCE PRN, Starting on Wed01/30/22 at 0927, [...] Procedure), Routine niCARdipine (Cardene) (100 mcg/mL) dilution (ELECTRONIC GLUER) (CANCELED ) 0927 (Given - Provider: Vitaliy [...] (Intra-Procedure) documented in this encounter Care Teams Athletics Director Relationship Specialty Start Date End Date Lovely Vicente MD PCP - General 04/16/[address] [place] [address] documented as of this encounter
--- OUTSIDE RECORDS SUMMARY | 2022-03-04 14:48 | XMS_ITS | Encounter Summary ---
:1945 Author Organization [facility] [place] [address] Care Team Providers Name Role Phone Lovely Vicente MD Primary Care Provider Encounter Details Date Type Department Care Team Description 02/23/2022 Refill [address]iology [address] [facility] Liz Poole PA [facility] [place] [address] Cardiology Dept [phone] [place], [place] [address] (Wo rk) Social History Tobacco [...] Oneill RPH Transfer of Services Don Fatima [address] [place] [address] [place] [address] Telephone Information: Work Phone Not on file. [facility] has received a prescription for Entresto for patient Mr. Don Fatima 76 y.o. (1945). The patient requests the prescription to be filled with [facility]. We spoke to patient to notify of this change and to provide number to reach the new filling pharmacy. A copyof patient's medication profile was offered to the accepting pharmacy. Additional instructions provided to patient about transfer: no The patient has been advised to call the - Specialty Pharmacy at [phone] with any questionsor concerns on this referral. Thank you, Oxana Oneill RPH 02/23/22 4:26 PM Patient understands no changes to current drug regimen were made at this time. documented in this encounter Plan of Treatment Upcoming Encounters Date Type Specialty Care Team Description 03/26/2022 Office Visit Cardiology Vitaliy Nobles MD [facility] DR T[address] [place], [place] [address] (Wo rk) 06/10/2022 Office Visit Dermatology Laura Scherer MD [facility] DR [address] [place], [place] [address] (Wo rk) documented as of this encounter Visit Diagnoses Not on filedocumented in this encounter Care Teams Library Associate Relationship Specialty Start Date End Date Lovely Vicente MD PCP - General 04/16/[address] [place] [address] documented as of this encounter
--- OUTSIDE RECORDS SUMMARY | 2022-03-04 14:48 | XMS_ITS | Encounter Summary ---
:1945 Author Organization [facility] [place] [address] Care Team Providers Name Role Phone Lovely Vicente MD Primary Care Provider Reason for Visit Reason Onset Date Comments Follow-up 02/23/2022 Medication adjustmen t and new med Encounter Details Date Type Department Care Team Description 02/23/2022 Telephone Cardiology at [facility] Martha Comer, Follow-up ([facility] RN adjustbrandon t and new med) [place] [address] Social History Tobacco Use Types Packs/Day [...] the order for BMP and sent to [facility]. will call [facility] to make an appointment for next Wednesday03/04/22. [...] tablet) daily. She will correct his pill neighborhood planner to the new dose. Will need to check with STEPHANIE Poole about repeat BMP to recheck K+ level. If yes he will get the test done at [facility]. They are aware that he will need to make an appt at [facility] to get the test done. Entresto: states [...] if he qualifies for assistance from the [employer]. She is thankful for the assistance, as he is taking insulin that is very expensive too. Instructed to call this property underwriter, if he does qualify for assistance from [employer] and that he has gotten the medication [...] Cardiology Vitaliy Nobles MD [facility] ER [address] TADEO [place], [place] [address] (Wo rk) 06/10/2022 Office Visit Dermatology Laura Scherer MD [facility] ER DR TEJA GR[facility]DERMAT [facility] [place] [place] [address] (Wo rk) documented as of this encounter Visit Diagnoses Not on filedocumented in this encounter Care Teams Sponge Clipper Relationship Specialty Start Date End Date Lovely Vicente MD PCP - General 04/16/[address] [place] [address] documented as of this encounter
--- OUTSIDE RECORDS SUMMARY | 2022-03-04 14:48 | XMS_ITS | Encounter Summary ---
:1945 Author Organization [facility] Address [facility] [place] [address] Care Team Providers Name Role Phone Lovely Vicente MD Primary Care Provider Reason for Visit Reason Comments Prior Authorization Entresto 24-26mg tablets Encounter Details Date Type Department Care Team Description 02/20/2022 Specialty Pharmacy Pharmacy at [facility] Lamberto Smith Prior Authorization [facility] J (Entresto 24-26mg Drive tablets) [place] [id number] Social History Tobacco Use Types Packs/Day Years [...] Don Fatima Patient : 1945 Patient Address: [address] [place] [address] [place] [address] (home) Medication Name: ENTRESTO 24 MG-26 MG TABLET Medication ID: [id number] Patient Location: [facility] CARDIOLOGY 4A Patient Location Comment: Medication Strength Frequency Requested: Entresto 24-26mg tablets / One tablet twice daily Qty/Day Supply: New Start: New to Therapy Diagnosis & ICD-10 Code: Chronic systolic heart failure, I50.22 Subscriber Insurance: [employer] [facility] Subscriber Insurance Comment: Fax: Physician: ARIK CARRERA Physician Comment : PA Status: NO PA REQUIRED Insurance mandated Pharmacy: Unknown [facility]: Yes Insurance requirements/notes: None Copay: $119.01 (goes to coverage gap/odalys monteiro) Copay assistance: [employer] Copay assistance comment: If cost isn't affordable, then we'll suggest enrollment in the currently open [facility] Heart Failure zoila, which provides up to $1000 in copay assistance. If zoila closes, or doesn't work out, then the patient can attempt enrollment in the cell repairer assistance program, the [employer] (NPAF). At which point we'd refer to [facility] for assistance with enrollment. Pharmacy staff will [...] MD [facility] [address] [place], [place] [address] (Wo rk) 06/10/2022 Office Visit Dermatology Laura Scherer MD [facility] DR TEJA GR-DERMAT [place], [place] [address] (Wo rk) documented as of this encounter Visit Diagnoses Not on filedocumented in this encounter Care Teams Practice Assistant Relationship Specialty Start Date End Date Lovely Vicente MD PCP - General 04/16/[address] [place] [address] documented as of this encounter
--- OUTSIDE RECORDS SUMMARY | 2022-03-04 14:48 | XMS_ITS | Clinical Summary ---
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; ASHD (arteriosc lerotic heart disease) 01/28/2022 Orders Only Cardiology JEMIMA Gannon PA (arteriosclerot ic cardiovascular disease) 01/28/2022 Telephone Cardiology Chitra Angela Advice Rome Gomes RN 12/30/2021 Notes Only Cardiology Rebeka Deluca RN 12/25/2021 Office Visit Cardiology Virgilio Chronic systoli c heart Liz PA failure 12/25/2021 Laboratory Lab Chronic systoli c heart Appointment failure 12/24/2021 Telephone [facility] Dayami Buckner 12/24/2021 Orders Only Cardiology JEMIMA Gannon PA (arteriosclerot ic cardiovascular disease) 12/15/2021 Telephone Cardiology Barbara Mera RN 12/12/2021 Refill Cardiology Janneth Padilla Medication R efill H, PA (Torsemide) 12/12/2021 Telephone Cardiology Barbara Mrea RN 12/10/2021 Surgery Cardiology Vitaliy Nobles, CARDIAC [...] Cardiology Vitaliy Nobles MD [facility] CARDIOLOGY [place], [place] [address] (Wo rk) 06/10/2022 Office Visit Dermatology Laura Scherer MD [facility] ER [address] [place] [address] (Wo rk) Health Maintenance Due Date Last Done Comments Covid-19 Vaccine (#1) 1950 Pneumoccocal Vaccine: 65+ (1 - PCV) 1952 Hepatitis C Screening 1964 Tdap adult 1965 Tetanus vaccine 1965 Zoster vaccine (1 of 2) 1996 AAA Screen 2011 Colonoscopy 01/16/2019 01/16/2014, 01/16/2014 Influenza (Flu) vaccine (1 of 1 - 03/26/2022 03/29/2013, Influenza standard series) Medical Devices Implanted Type Area Purchasing Internship Device Shelf Model / Identifier Expiration Serial / Date Lot Cable,Cut,Edg,Blnt,Ss,3tpr ([id number]) - [id number] IMPLANTS Midline: [employer] 04/01/2022 [id number] / Implanted: Qty: 4 on 07/07/2017 by Yuan Retana MD at [facility] [employer] - / [id number] Procedures Procedure Name Priority Date/Time Associated Diagnosis [...] Time Signature WBC 7.2 4.0 - 9.5 [facility] SU x10(3)/[facility] LABORATORY RBC 4.41 (L) 4.58 - [place] SU 5.54 [facility] x10(6)/[facility] LABORATORY Hemoglobin 13.2 (L) 13.7 - [facility] SU 16.5 g/dL [facility] LABORATORY Hematocrit 40.9 40.5 - [place] SU 48.5 % [facility] LABORATORY MCV 92.7 82.9 - [place] 93.1 fL [facility] LABORATORY MCH 29.9 27.5 - [place] SU 32.1 pg [facility] LABORATORY MCHC 32.3 32.0 - [place] SU 35.7 g/dL [facility] LABORATORY Platelets 191 145 - 357 [facility] x10(3)/[facility] LABORATORY RDWSD 53.6 (H) 36.0 - [facility] 45.0 [facility] LABORATORY RDWCV 15.6 (H) 11.4 - [facility] 13.8 % [facility] MPV 8.7 7.6 - 12.9 [facility] LABORATORY nRBC % Auto 0.0 % [facility] LABORATORY nRBC Abs Auto 0.000 0.000 - [facility] 0.000 [facility] x10(3)/[facility] LABORATORY Specimen Anatomical Collection Method Collection Time Receive d Time (Source) Location / / Volume Laterality Blood 02/19/2022 8:06 AM 8:09 EDT AM EDT Resulting Agency Comment Spec In Lab Liz BROWN HEMATOLOGY ORDERABLES Performing Organization Address City/State/ZIP Code Phon e Number [place] [phone] (ABNORMAL) Differential, Automated (02/19/2022 8:06 AM EDT)Only the most recent of9 resultswithin the time period is included. [facility] gist Method Time Signature Neutrophils % 76.0 % [facility] LABORATORY Neutr Abs (ANC) 5.49 1.70 - [facility] 6.10 [facility] x10(3)/[facility] LABORATORY Lymphocytes % 10.8 % [facility] LABORATORY Lymphocytes Abs 0.8 (L) 0.9 - 3.2 [facility] x10(3)/[facility] LABORATORY Monocytes % 10.2 % [facility] LABORATORY Monocyte Abs 0.7 0.3 - 0.9 [facility] x10(3)/[facility] LABORATORY Eosinophils % 1.2 % [facility] LABORATORY Eosinophils Abs 0.1 0.0 - 0.4 [facility] x10(3)/[facility] LABORATORY Basophils % 0.8 % [facility] Basophils Abs 0.1 0.0 - 0.1 [facility] x10(3)/[facility] LABORATORY Immature Gran % 1.00 % [place]A [...] Abs 0.07 (H) 0.00 - 0.04 x10(3)/mcL [facility] LABORATORY Specimen Anatomical Collection Method Collection Time Receive d Time (Source) Location / / Volume Laterality Blood 02/19/2022 8:06 AM 2 8:09 EDT AM EDT Resulting Agency Comment Spec In Lab Liz BROWN HEMATOLOGY ORDERABLES Performing Organization Address City/[facility]/[place] [address] (ABNORMAL) pro-Brain Natriuretic Peptide (02/19/2022 8:06 AM EDT)Only the most recent of2 resultswithin the time period is included. athologist Signature ProBNP 984 (H) <=449 pg/mL [facility] LABORATORY Specimen Anatomical Collection Method Collection Time Receive d Time (Source) Location / / Volume Laterality Blood 02/19/2022 8:06 AM 2 8:09 EDT AM EDT Resulting Agency Comment Spec In Lab Zulma Plunkett MD CHEMISTRY ORDERABLES Performing Organization Address City/[facility]/[place] [address] (ABNORMAL) Basic Metabolic Panel (non-fasting) (02/19/2022 8:06 AM EDT)Only the most recent of7 resultswithin the time period is included. athologist Signature Glucose Lvl 139 65 - 199 [facility] mg/dL [facility] LABORATORY Comment: Diabetes: >=200 mg/dL plus symp toms BUN 31 (H) 10 - 20 mg/dL [facility] LABORATORY Creatinine 1.53 (H) 0.80 - 1.50 mg/dL [facility] LABORATORY Sodium 142 135 - 145 mmol/L [facility] LABORATORY Potassium 5.4 (H) 3.5 - 5.0 mmol/L [facility] LABORATORY Comment: Please note: ??Patients with WBC >100,00 0 may have falsely elevated Potassium levels. ??For accurate Potassium quantif ication in these patients send serum separator tube (gold top) for subsequent determinations. ??Contact the Clinical Chemistry Laboratory if there are any qu estions. Chloride 100 98 - 107 mmol/L [facility] LABORATORY CO2 31 22 - 31 mmol/L [facility] LABORATORY Anion Gap 11 5 - 15 mmol/L [facility] LABORATORY Calcium 9.7 8.5 - 10.5 mg/dL [facility] [...] Organization Address City/State/[place] [address] POCT Glucose (01/30/2022 1:41 PM EDT)Only the most recent of36 resultswithin the time period is included. athologist Signature POC Glucose 148 65 - 199 [facility] mg/dL [facility] LABORATORY Comment: Supplemental ranges: <140 mg/dL before meals <180 mg/dL all other times of the day Specimen Anatomical Collection Method Collection Time Receive d Time (Source) Location / / Volume Laterality Blood 01/30/2022 1:41 PM 2 1:41 EDT PM EDT Vitaliy Nobles MD POINT OF CARE TEST ORDERABLE S Performing Organization Address City/State/[place] [address] EKG 12 Lead (01/30/2022 [...] 435 ms MUSE SYSTEM (Bezet) Calculated P [place] 41 degrees MUSE SYSTEM Calculated R [place] -27 degrees MUSE SYSTEM Calculated T [place] 104 degrees MUSE SYSTEM INTERPRETATION Normal sinus rhythm MUSE SYSTEM Anterolateral infarct (cited on or before 09-DEC-2021) Abnormal ECG When compared with ECG of 10-DEC-2021 11:17, No significant change was found Confirmed by Gary Perez ([id number]) on 01/30/2022 5:57:5 2 PM Specimen Anatomical [...] SYSTEM - 01/30/2022 2:09 PM ED T ?[facility] ? Cardiac Cathete rization/Intervention Report ? Patient Name: Don Fatima. ? Procedure Date: 01/30/2022 ? A #: [id number] ? Primary Physician: Nobles, Vitaliy P ? Case #: [id number] ? File Name: [id number] ? Catheterization Order Number: [id number] ? [facility] ? Final Report [place], [place] ? Patient Name: ? Don E. Stewa rt ? ID#: ?[id number] ? : ?1945 ? Procedure Date: ? January 30, 2022 ? Case #: ? [id number] ? Room: ? 1 ? Case Physician: [...] procedure was Urgent. The indication for ?the animal laboratory helper visit is stable kn own CAD. Chest [...] guiding catheter an d a 3.[address] [facility] [place] [address] ??20 Mhz ?using Manual pullback. ??Imagin [...] A premounted 2.00 x 26 mm Hardeep Calhoun (TUCKER) ? was deployed wi th a [...] Wedelivered along 2.0 x 26 mm HARDEEP Calhoun ? TUCKER stent and p ositioned it [...] dose administered prior to arrival in the animal laboratory helper. ?Recommended anti-platelet/anti- thrombotic regimen: ?Continue aspirin 81 [...] ?modification of this regimen. C [facility] Interventional Cardiology for ?questions. ?The 1 year [...] using a 2.0 x 26 mm HARDEEP Calhoun TUCKER stent. ?This completes the revasculariz ation [...] 65 - 99 [place] DAVIS Fasting mg/dL [facility] LABORATORY Comment: ?Fasting* Glucose Interpretive C [...] of Diabetes Mellitus, Position Statement from the [place] [employer]. ??Diabete s Care, Volume 33, Supplement 1, Jul 2009 BUN 52 (H) 10 - 20 mg/dL [facility] LABORATORY Creatinine 1.72 (H) 0.80 - 1.50 mg/dL [facility] [...] 15 mmol/L [facility] LABORATORY Calcium 8.9 8.5 - [...] MD CHEMISTRY ORDERABLES Performing Organization Address City/[facility]/[place] [address] (ABNORMAL) Prothrombin Time (12/12/2021 4:51 AM EDT)Only the most recent of4 resultswithin the time period is included. P athologist Signature PT 14.9 (H) 9.4 - 12.5 [facility] LABORATORY INR 1.3 [facility] LABORATORY [...] [facility]/[place] [address] Magnesium (12/12/2021 4:51 AM EDT)Only the most recent of5 resultswithin the time period is included. P athologist Signature Magnesium 1.02 0.69 - 1.07 [facility] mmol/L [facility] LABORATORY Specimen Anatomical Collection Method Collection Time Receive d Time (Source) Location / / Volume Laterality Blood 12/12/2021 4:51 AM 2 5:06 EDT AM EDT Resulting Agency Comment Spec In Lab Iker Cuevas MD CHEMISTRY ORDERABLES Performing Organization Address City/[facility]/[place] [address] COVID-19 PCR (12/11/2021 10:13 AM EDT) [facility] Method Time Signature SARS-CoV-2 Not Detected Not Detected [place] RNA [facility] LABOR[facility] Comment: This result should be interpreted [...] diagnosis of COVID-19 is performed using the [employer] S-CoV-2 Assay as authorized by the FDA Emergency Use Authorization (EUA). This EUA assay is intended for In-vitro Diagnostic (IVD) use with respiratory sp ecimens such as nasopharyngeal swabs collected from individuals during the ac terrence phase of infection. This assay is performed based on the instructions for use provided by [employer] and additional guidance provided by CDC and FDA. Testing is performed in the Clinical Genomics and Advanced Technolog y Laboratory within the Department of Pathology and Laboratory Medicine at [facility], certified under the Clinical Laboratory [...] fact sheets at the following FDA website: https://www.fda.gov/medical-devices/nzjzcpmsyho-npcvmew-8997-itshg-36-bxdzzhixn- rqc-wabwelifphtlrv-ubfysxb-devices/rsjty-lfvsurcphfb-yyyb SARS-Cov-2 RNA Source [employer] Swab [facility] LABORATORY Specimen (Source) Anatomical Collection Method Collection Time Re ceived Time Location / / Volume Laterality Nasopharyngeal Swab 12/11/2021 10:13 0503/2022 AM EDT 11:16 AM EDT Comment: Symptoms->Surveillance Resulting Agency Comment Spec In Lab Iker Cuevas MD MICROBIOLOGY - GENERAL ORDER ROBSON Performing Organization Address City/[facility]/[place] [address] Potassium (12/10/2021 7:46 PM EDT) athologist Signature Potassium 4.2 3.5 - 5.0 [facility] mmol/L [facility] LAB[facility] Comment: Please note: ??Patients with [...] MD CHEMISTRY ORDERABLES Performing Organization Address City/[facility]/[place] [address] (ABNORMAL) Point of Care Blood Gas Historical (12/10/2021 9:04 AM EDT) Patholo gist Method Time Signature POC pH 7.40 7.35 - [facility] 7.45 [facility] LABOR[facility]ORY POC PCO2 40 35 - 45 [facility] mmHg [facility] LABOR[facility] POC PO2 63 (L) 85 - 104 [facility] mmHg [facility] LABOR[facility] POC Base Excess 0.0 -3.0 - 3.0 [facility] mmol/L [facility] LAB[facility] POC HCO3 24.8 20.0 - [facility] 26.0 [facility] Sodium 143 135 - 145 [facility] mmol/L [facility] LABORATORY POC Potassium 3.7 3.5 - 5.0 [facility] mmol/L [facility] LABORATORY POC Ionized Ca 1.07 (L) 1.15 - [facility] 1.33 [facility] LAB[facility] POC Hematocrit 30.0 (L) 40.0 - [facility] 51.0 % [facility] LABOR[facility] POC Calc Hgb 10.2 (L) 13.7 - [facility] 17.5 g/dL [facility] LABOR[facility] Comment: The calculation of hemoglobin f rom hematocrit assumes a normal MCHC. POC Bgas Loc CC LAB [facility] LABORATORY Specimen Anatomical Collection Method Collection Time Receive d Time (Source) Location / / Volume Laterality Blood 12/10/2021 9:04 AM 2 EDT 12:00 PM EDT Ifeanyi Truong MD CHEMISTRY ORDERABLES Performing Organization Address City/State/[place] [address] Heparin (unfractionated) Level (12/10/2021 4:25 AM EDT)Only the most recent of5 resultswithin the time period is included. P athologist Signature Heparin UFH 0.69 IU/mL [facility] LABORATORY Comment: Heparin (anti-Xa) levels should [...] Organization Address City/State/[place] [address] (ABNORMAL) Troponin (12/09/2021 6:18 AM EDT)Only the most recent of3 results within the time period is included. athologist Signature Troponin-T 1.13 (H) 0.00 - [facility] 0.00 ng/mL [facility] LABOR[facility] Comment: The 99th percentile for [...] additional sample may be indicated. Reference: Third [place] Definition of Myocardial Infarction. Journal of the [place] College of Cardiology 2012;60:1581-98 Specimen Anatomical Collection Method Collection Time Receive d Time (Source) Location / / Volume Laterality Blood 12/09/2021 6:18 AM 2 6:33 EDT AM EDT Resulting Agency Comment Spec In Lab Iker Cuevas MD CHEMISTRY ORDERABLES Performing Organization Address City/[facility]/ZIP [facility] Phon e Number [address] TSH (12/09/2021 6:18 AM EDT) P athologist Signature TSH 1.60 0.27 - 4.20 [facility] mcIU/mL [facility] Comment: Reference Interval (mcIU/mL): Females: ??First Trimester: 0.23-3.88 ??Second Trimester: 0.22-3.90 ??Third Trimester: 0.44-4.66 Specimen Anatomical Collection Method Collection Time Receive d Time (Source) Location / / Volume Laterality Blood 12/09/2021 6:18 AM 2 6:33 EDT AM EDT Resulting Agency Comment Spec In Lab Iker Cuevas MD CHEMISTRY ORDERABLES Performing Organization Address City/[facility] [place] [address] (ABNORMAL) Hemoglobin A1c (12/09/2021 6:18 AM EDT) Analysis Performed At Patho logist Time Signature Hemoglobin A1C 7.4 (H) 4.3 - 5.6 [facility] % [facility] LAB[facility] Comment: Reference Range: 4.3 - [...] Avg Gluc See note mg/dL [facility] LABORATORY Comment: Estimated Average Glucose not [...] with hemoglobinopathies. Additional resources are available on [facility] ADA website. Macario HAMMOND, Ruthann J, Deysi R, et al. ??Tr anslating the A1C assay into estimated average glucose values. ??Diabetes Care 2008:31(8):1655-8021. Specimen Anatomical Collection Method Collection Time Receive d Time (Source) Location / / Volume Laterality Blood Venous Draw / 12/09/2021 6:18 AM 12/10/19 22 Unknown EDT 12:24 PM EDT Resulting Agency Comment Spec In Lab Migdalia BROWN CHEMISTRY ORDERABLES Performing Organization Address City/State/ZIP Code Phon e Number [place] [address] Hepatic Function Panel (12/09/2021 6:18 AM EDT) athologist Signature Total Protein 7.3 6.1 - 8.0 [facility] SU g/dL [facility] LAB[facility] Albumin 4.2 3.2 - 5.2 [facility] SU g/dL [facility] LAB[facility] AST 25 0 - 39 [facility] unit/L [facility] ALT 15 0 - 55 [facility] unit/L [facility] Alk Phos 75 40 - 130 [facility] unit/L [facility] Total 1.1 0.2 - 1.3 [facility] Bilirubin mg/dL [facility] LAB[facility] Bili, Direct 0.2 0.0 - 0.3 [facility] mg[facility] Specimen Anatomical Collection Method Collection Time Receive d Time (Source) Location / / Volume Laterality Blood 12/09/2021 6:18 AM 6:33 EDT AM EDT Resulting Agency Comment Spec In Lab Iker Cuevas MD CHEMISTRY ORDERABLES Performing Organization Address City/State/ZIP Code Phon e Number [place] [phone] Lipid Panel (Reflex Direct LDL) (12/09/2021 6:18 AM EDT) P athologist Signature Chol, Total 105 mg/dL [facility] LABORATORY Comment: Lower Risk: <200 mg/dL Average Risk: 200-239 mg/dL Higher Risk: >ol=609 mg/dL Triglycerides 133 mg/dL [facility] LABORATORY Comment: Average Risk/Lower Risk: <150 mg/dL Borderline High Risk: 150-199 mg/dL High Risk: 200-499 mg/dL Very High Risk: >ge=687 mg/dL HDL 42 mg/dL [facility] LABORATORY Comment: Males: ?? Higher Risk: <40 mg/dL Females: ?? Higher Risk: <50 mg/dL LDL Cholesterol 36 mg/dL [facility] Comment: Lowest Risk: <100 mg/dL Lower Risk: 100-129 mg/dL Borderline High Risk: 130-159 mg/dL High Risk: 160-189 mg/dL Very High Risk: >pl=179 mg/dL Chol/HDL Ratio 2.5 ratio [facility] LABOR[facility]ORY Lipid Interpretation See Note [facility] LABORATORY Comment: Lipid management should be guided by a p atient? s ASCVD risk, goals and preferences. ACC/AHA Guidelines recommend high intens ity statin if clinical ASCVD or LDL greater than or equal to 190 mg/dL. http://[employer].com/RLG-URO-Tvbcjancm Adults aged 40-75 with LDL 70-189 mg/dL should have their 10 year ASCVD risk estimated with the ACC/AHA ASCVD risk es timator http://tools.acc.org/YYYSO-Hpga-Oviydwfb r/ Statin should be discussed if risk [...] City/State/ZIP Code Phon e Number [place] [phone] HOSP[address] LAB[address] Drive XR Chest One View [...] questions please contact the health career technical education instructor that requested your imaging first. ? Narrative [...] questions please contact the health career technical education instructor that requested your imaging first. Amber Sanches MD IMG DX ORDERABLES (ABNORMAL) BLOOD GAS 2 ARTERIAL (12/09/2021 5:14 AM EDT) Analysis Performed At [facility] Time Signature pH Art 7.43 7.35 - [facility] 7.45 [facility] LABORATORY pCO2 Art 36 35 - 45 [facility] LABORATORY pO2 Art 67 (L) 85 - 104 [facility] LABORATORY HCO3 Art 23.4 20.0 - [facility] 26.0 [facility] mmol/[facility] LABORAT[facility] BE Art -0.9 -3.0 - 3.0 [facility] mmol/L [facility] Hgb Blood Gas 13.2 (L) 13.7 - [facility] 16.5 g/dL [facility] O2HB Art 91.3 (L) 94.0 - [facility] 97.0 % [facility] LAB[facility] COHB Art 0.4 % [facility] LAB[facility] Comment: Nonsmokers: 0.5-1.5% COHB Smokers: Variable, but usually less than 10% Toxic: 20-30% COHB Lethal: Greater than 60% COHB METHB Art 0.4 <=1.5 % [facility] LAB[facility] Na [...] Bld 223 (H) 65 - 199 mg/dL [facility] Comment: Diabetes: >=200 mg/dL plus symp toms. Lactate WB 2.7 (H) 0.5 - 2.2 mmol/L [facility] LABORATORY FIO2 Art 35 % [facility] Flow Art 8.0 LPM [facility] PF Ratio Art 191 [facility] LABORATORY Specimen Anatomical Collection Method Collection Time Receive d Time (Source) Location / / Volume Laterality Blood 12/09/2021 5:14 AM 05/17/202 2 5:14 EDT AM EDT Iker Cuevas MD CHEMISTRY ORDERABLES Performing Organization Address City/State/ZIP [place] [address] COVID-19 PCR (12/08/2021 5:00 PM EDT) [facility] Method Time Signature SARS-CoV-2 Not Detected Not Detected [place] RNA PCR [facility] Comment: This result should be interpreted [...] using the [employer]plex[employer] COVID-19 Direct Assay by [employer] Technologyjoi marcum as authorized by the FDA issued [...] Department of Pathology and Laboratory Medicine at [facility], certified under the Clinical Laboratory Improvement [...] clinical management guidance information are available at [facility] CDC Coronavirus Disease 2019 (COVID-19) webpage under Information fo r Healthcare Professionals (https://www.cdc.gov/coronavirus/2019-nc ov/hcp/index.html). Additional information about this and ot her EUA tests can be found in provider and patient fact sheets at the following FDA website: https://www.fda.gov/medical-devices/gebcmssojtv-rdjajwd-2633-jkhap-22-ebtawwvnc- wkv-dtlnmmyxfttvpw-svdrifs-devices/jhgbi-zrifwzqubyr-qttv SARS-CoV-2 Source [employer] Swab [facility] LABORATORY Specimen (Source) Anatomical Collection Method Collection Time Re ceived Time Location / / Volume Laterality Nasopharyngeal Swab 12/08/2021 5:00 12/08 PM EDT 6:03 PM EDT Comment: Symptoms->Surveillance Resulting Agency Comment Spec In Lab Iker Cuevas MD MICROBIOLOGY - GENERAL ORDER [place]ON Performing Organization Address City/State/Z[place] [address] Scan Doc: Echo (12/08/2021) [...] IMG FILM LIBRARY ORDERABLES Performing Organization Address City/[facility]/ZIP Code Phon e Number RAD [place], [place] Scan Doc: ECG (12/07/2021) Narrative This result has an attachment that is no t available. Historical Provider MEDIA MGR SCAN EXT ORDR/RSLT from Last 3 Months Insurance Payer Benefit Plan / Subscriber ID Effective Phone Address T ype Group Dates MEDICARE MEDICARE PART [id number] 2011-Prese [phone] [place] [address] [employer] [place] [place] P [id number] 2018-Prese [phone] [address] [place] 0 nt [address] [place] [address] Advance Directives Documents on File Type Date Recorded Patient Manager Performance Improvement Explanati on Advance Directives and Living 03/28/2013 [...] capacity to make decision: Yes Care Teams Warehouse Selector Relationship Specialty Start Date End Date Lovely Vicente MD PCP - General 04/16/[address] [place] [address]
--- OUTSIDE RECORDS SUMMARY | 2022-03-04 14:48 | XMS_ITS | Encounter Summary ---
:1945 [place] [address] Care Team Providers Name Role Phone Lovely Vicente MD Primary Care Provider Reason for Visit Reason Onset Date Comments Follow-up 02/26/2022 Entresto start Encounter Details Date Type Department Care Team Description 02/26/2022 Telephone Cardiology at [facility] Martha Comer, Follow-up ([facility] RN start) [place] [address] Social History Tobacco Use Types Packs/Day Years Used Date Former Smoker Cigarettes 3 5 Quit: 07/26/18 69 Smokeless Tobacco: Never Used Alcohol Use Standard Drinks/Week Comments No 0 (1 standard drink = 0.6 oz pure alcoho l) Sex Assigned at Date Recorded Not on file documented as of this encounter Miscellaneous Notes Telephone Encounter - Martha Comer, RN - 02/26/2022 8:02 PM EDT Angela calling to report that Don was able to get the Entresto and is ready to start. New Entresto Start Entresto 24-26 mg po bid. Starting dose on 02/26/22 . Teaching done on 02/25/22 Pt to monitor weights, BP/HR daily. Call clinic with c/o light headedness, dizziness, low BP, chest discomf and/or with any questions/concerns. Signs of angioedema: Lip/Eye/Face swelling. Signs of high Potassium: persistent abnormal heartbeat, confusion, SOB, dizziness, weakness. Call if his/her weight goes up 2 lbs in a day, 5 lbs in a week or if he/she notices any swelling inhis/her lower extremities and/or abdomen. Stop Arb (name & dose) Losartan 50 mg daily the day before starting Entresto on 02/24/22 PM. BMP done 1-2 weeks after start on 03/05/22 Getting labs done at : [facility] Order e-faxed by STEPHANIE Poole on 02/24/22. /pt to call on 03/05/22 letting us know to get the BMP results from [facility]. Nursing to get results and contact pt to see how he is tolerating the Entresto. They are to call sooner with any questions/concerns. documented in this encounter Plan of Treatment Upcoming Encounters Date Type Specialty Care Team Description 03/26/2022 Office Visit Cardiology Vitaliy Nobles MD [facility] CARDIOLOGY [place], [place] [address] (Wo rk) 06/10/2022 Office Visit Dermatology Laura Scherer MD [facility] DR TE[address] GR-DERMAT [place], [place] [address] (Wo rk) documented as of this encounter Visit Diagnoses Not on filedocumented in this encounter Care Teams Beauty Culturist Apprentice Relationship Specialty Start Date End Date Lovely Vicente MD PCP - General 04/16/[address] [place] [address] documented as of this encounter
--- OUTSIDE RECORDS SUMMARY | 2022-03-04 14:48 | XMS_ITS | Encounter Summary ---
:1945 Author Organization [place] [address] Care Team Providers Name Role Phone Lovely Vicente MD Primary Care Provider Reason for Visit Auth/Cert Specialty Diagnoses / Procedures Referred By Contact Refer red To Contact Diagnoses ASCVD (arteriosclerotic cardiovascular disease) [I25.10] Vitaliy Nobles MD [facility] Procedures PRO PERC TRLUML CORONARY STENT W/ANGIO ONE ART/BRANCH CARDIAC CATHETERIZATION STENT PLACEMENT-SINGLE MAJOR CORONARY ARTERY OR BRANCH [facility] [place] [address] Referral ID Status Reason Start Date Expiration Date Visits Requ ested Visits Authorized [id number] 1 1 Encounter Details Date Type Department Care Team Description 01/30/2022 Laboratory Lab 3L Katalina ASCVD (arterios clerotic Appointment [facility] cardiovas cular disease) [place] [address] Social History Tobacco Use Types Packs/Day Years [...] MD [facility] CARDIOLOGY [place], [place] [address] (Wo rk) 06/10/2022 Office Visit Dermatology Laura Scherer MD [facility] [address] OGY [place], [place] [address] (Wo rk) documented as [...] (ABNORMAL) Differential, Automated (01/30/2022 7:19 AM EDT) [facility] gist Method Time Signature Neutrophils % 77.9 % [facility] LABORATORY Neutr Abs (ANC) 5.31 1.70 - [facility] 6.10 [facility] x10(3)/[facility] LABORATORY Lymphocytes % 12.0 % [facility] LABORATORY Lymphocytes Abs 0.8 (L) 0.9 - 3.2 [facility] x10(3)/[facility] LABORATORY Monocytes % 8.1 % [facility] LABORATORY Monocyte Abs 0.6 0.3 - 0.9 [facility] x10(3)/[facility] LABORATORY Eosinophils % 0.4 % [facility] LABORATORY Eosinophils Abs 0.0 0.0 - 0.4 [facility] x10(3)/[facility] LABORATORY Basophils % 0.6 % [facility] LABORATORY Basophils Abs 0.0 0.0 - 0.1 [facility] x10(3)/[facility] LABORATORY Immature Gran % 1.00 % [facility] LABORATORY Comment: Immature granulocytes(IG's)percentage an d absolute count will include metamyelocytes, myelocytes, and promyelo cytes. Blood smears from CBCs yielding IG's will be scanned manually for concor dance. If this scan disagrees with the automated IG or if promyelocytes are not ed, a manual differential will be performed. Melisa Gran Abs 0.07 (H) 0.00 - 0.04 x10(3)/[facility] LABORATORY Specimen Anatomical Collection Method Collection Time Receive d Time (Source) Location / / Volume Laterality Blood 01/30/2022 7:19 AM 7:21 EDT AM EDT Resulting Agency Comment Spec In Lab Zulma BROWN HEMATOLOGY ORDERABLES Performing Organization Address City/State/ZIP Code Phon e Number [place] [phone] LAB[address]ORY [address] (ABNORMAL) Hemogram (01/30/2022 7:19 AM EDT) Analysis Performed At Patho logist Time Signature WBC 6.8 4.0 - 9.5 [facility] x10(3)/[facility] LABORATORY RBC 4.32 (L) 4.58 - [place] 5.54 [facility] x10(6)/[facility] LABORATORY Hemoglobin 13.0 (L) 13.7 - [facility] 16.5 g/dL [facility] LABORATORY Hematocrit 39.8 (L) 40.5 - [facility] RYAN 48.5 % [facility] LABORATORY MCV 92.1 82.9 - [facility] RYAN 93.1 [facility] LABORATORY MCH 30.1 27.5 - [place] 32.1 pg [facility] LABORATORY MCHC 32.7 32.0 - [facility] 35.7 g/dL [facility] LABORATORY Platelets 172 145 - 357 [facility] x10(3)/[facility] LABORATORY RDWSD 54.5 (H) 36.0 - [place] 45.0 [facility] LABORATORY RDWCV 16.2 (H) 11.4 - [facility] RYAN 13.8 % [facility] LABORATORY MPV 9.0 7.6 - 12.9 [facility] LABORATORY nRBC % Auto 0.0 % [facility] LABORATORY nRBC Abs Auto 0.000 0.000 - [facility] 0.000 [facility] x10(3)/[facility] LABORATORY Specimen Anatomical Collection Method Collection Time Receive d Time (Source) Location / / Volume Laterality Blood 01/30/2022 7:19 AM 7:21 EDT AM EDT Resulting Agency Comment Spec In Lab Zulma BROWN HEMATOLOGY ORDERABLES Performing Organization Address City/State/[place] [address] (ABNORMAL) Basic Metabolic Panel (non-fasting) (01/30/2022 7:19 AM EDT) P athologist Signature Glucose Lvl 237 (H) 65 - 199 [facility] mg/dL [facility] LABORATORY Comment: Diabetes: [...] Chloride 100 98 - 107 mmol/L [facility] LABORATORY CO2 30 22 - 31 mmol/L [facility] LABORATORY Anion Gap 11 5 - 15 mmol/L [facility] LABORATORY Calcium 9.5 8.5 - 10.5 mg/dL [facility] LABORATORY Estimated GFR 50 (L) >=60 mL/min/1.73 m?? [facility] LABORATORY Comment: This patient's estimated GFR [...] Organization Address City/State/ZIP Code Phon e Number [place] [phone]OSP[address] LAB[address]ORY [address] documented in this encounter Visit Diagnoses Diagnosis ASCVD (arteriosclerotic cardiovascular d isease) Unspecified cardiovascular disease documented in this encounter Care Teams Box Estimator Relationship Specialty Start Date End Date Lovely Vicente MD PCP - General 04/16/[address] [place] [address] documented as of this encounter
--- OUTSIDE RECORDS SUMMARY | 2022-03-04 14:48 | XMS_ITS | Encounter Summary ---
:1945 Author Organization [facility] [place] [address] Care Team Providers Name Role Phone Lovely Vicente MD Primary Care Provider Encounter Details Date Type Department Care Team Description 02/19/2022 Laboratory Appointment Lab 3L [facility] systolic [facility] heart [place] [phone] Social History Tobacco Use Types Packs/Day Years [...] Nobles MD [facility] CARDIOLOGY [place], [place] [address] (Wo rk) 06/10/2022 Office Visit Dermatology Laura Scherer MD [facility] DR [address] GR[address]DERMAT OLOGY [place], [place] [address] (Wo rk) documented as of [...] (ABNORMAL) Differential, Automated (02/19/2022 8:06 AM EDT) [facility] Method Time Signature Neutrophils % 76.0 % [facility] LABORATORY Neutr Abs (ANC) 5.49 1.70 - [facility] 6.10 [facility] x10(3)/[facility] LABORATORY Lymphocytes % 10.8 % [facility] LABORATORY Lymphocytes Abs 0.8 (L) 0.9 - 3.2 [facility] x10(3)/[facility] LABORATORY Monocytes % 10.2 % [facility] LABORATORY Monocyte Abs 0.7 0.3 - 0.9 [facility] x10(3)/[facility] LABORATORY Eosinophils % 1.2 % [facility] LABORATORY Eosinophils Abs 0.1 0.0 - 0.4 [facility] x10(3)/[facility] LABORATORY Basophils % 0.8 % [facility] LABORATORY Basophils Abs 0.1 0.0 - 0.1 [facility] x10(3)/[facility] LABORATORY Immature Gran % 1.00 % [...] Gran Abs 0.07 (H) 0.00 - 0.04 x10(3)/[facility] LABORATORY Specimen Anatomical Collection Method Collection Time Receive d Time (Source) Location / / Volume Laterality Blood 02/19/2022 8:06 AM 2 8:09 EDT AM EDT Resulting Agency Comment Spec In Lab Liz BROWN HEMATOLOGY ORDERABLES Performing Organization Address City/State/[place] [address] (ABNORMAL) Hemogram (02/19/2022 8:06 AM EDT) Analysis Performed At Patho logist Time Signature WBC 7.2 4.0 - 9.5 [facility] LABORATORY RBC 4.41 (L) 4.58 - [facility] RYAN 5.54 [facility] x10(6)/[facility] LABORATORY Hemoglobin 13.2 (L) 13.7 - [facility] 16.[facility] g/dL [facility] LABORATORY Hematocrit 40.9 40.5 - [facility] 48.5 % [facility] LABORATORY MCV 92.7 82.9 - [facility] 93.1 [facility] LABORATORY MCH 29.9 27.5 - [place] 32.1 pg [facility] LABORATORY MCHC 32.3 32.0 - [facility] 35.7 g/dL [facility] LABORATORY Platelets 191 145 - 357 [facility] x10(3)/[facility] LABORATORY RDWSD 53.6 (H) 36.0 - [facility] RYAN 45.0 [facility] LABORATORY RDWCV 15.6 (H) 11.4 - [facility] RYAN 13.8 % [facility] LABORATORY MPV 8.7 7.6 - 12.9 [facility] LABORATORY nRBC % Auto 0.0 % [facility] LABORATORY nRBC Abs Auto 0.000 0.000 - [facility] RYAN 0.000 [facility] x10(3)/[facility] LABORATORY Specimen Anatomical Collection Method Collection Time Receive d Time (Source) Location / / Volume Laterality Blood 02/19/2022 8:06 AM 2 8:09 EDT AM EDT Resulting Agency Comment Spec In Lab Liz BROWN HEMATOLOGY ORDERABLES Performing Organization Address City/State/[place] [address] [facility] LAB[address]ATORY Drive (ABNORMAL) pro-Brain Natriuretic Peptide [...] Address City/State/ZIP Code Phon e Number [address] (ABNORMAL) Basic Metabolic Panel (non-fasting) (02/19/2022 8:06 AM EDT) athologist Signature Glucose Lvl 139 65 - 199 [facility] mg/dL [facility] LABORATORY Comment: Diabetes: >=200 mg/dL plus symp toms BUN 31 (H) 10 - 20 mg/dL [facility] LABORATORY Creatinine 1.53 (H) 0.80 - 1.50 mg/dL [facility] 15 mmol/L [facility] LABORATORY Calcium 9.7 8.5 - 10.5 mg/dL [facility] LABORATORY Estimated GFR 47 (L) >=60 mL/min/1.73 m?? [facility] LAB[facility] Comment: This patient's estimated [...] Organization Address City/State/[place] [address] documented in this encounter Visit Diagnoses Diagnosis Chronic systolic heart failure documented in this encounter Care Teams Nutrition Services Associate Relationship Specialty Start Date End Date Lovely Vicente MD PCP - General 04/16/[address] [place] [address] documented as of this encounter
--- OUTSIDE RECORDS SUMMARY | 2022-03-04 14:48 | XMS_ITS | Encounter Summary ---
:1945 Author Organization [facility] [address] Care Team Providers Name Role Phone Lovely Vicente MD Primary Care Provider Reason for Referral Diagnostic Test (Routine) - New Request Specialty Diagnoses / Procedures Referred By Contact Refer red To Contact Cardiology Diagnoses Chronic systolic heart failure Liz Carrera PA [facility] Non-Inv Card Lab Procedures Echocardiogram Transthoracic [facility] [place] [address] [place] [address] Fax: Referral ID Status Reason Start Expiration Visits Visits Date Date Requested Authorized [id number] New Request Specialty 02/19/2022 02/19/2023 1 1 Service Requested Encounter Details Date Type Department Care Team Description 02/19/2022 Office Visit Cardiology at [facility] Liz Carrera, Chronic systolic heart [facility] [place] [address] Cardiology Dept [phone] [place], [place] [address] Social History Tobacco Use Types [...] As per DC Summary - Admitted to [facility] on 12/08/21, transferred from [facility], respiratory distress with hypoxia 86% on [...] mg PO daily in place of Lasix. [place] is new for him and he will [...] his PCP. He started [facility]hab in [facility]. Monitored vitals/trends at home: Weight 191-194 [...] ?? Heart Failure Management: Yes/No No?/Discontinued/Why Beta chadwcik Yes Metoprolol succinate 25 mg daily KIRSTIN/ARB [...] (DAPT) Recommendations above ? TTE from [facility] 12/08/21 ?? 07/28/2019 Echocardiogram: SUMMARY: 1. [...] regurgitation present. 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 Post-op atrial fibrillation [id number] (CHF, HTN, DM, vascular disease, thromboembolism) Eliquis 7. PAD 08/06/2017: Right 1st, 2nd, 3rd toe amputation 08/11/2017: Left??femoral arterial access, RLE??angiogram, Balloon angioplasty of R PT 10/25/2017: right popliteal-pedal bypass at [facility] 8. Hypothyrodism S/p thyroidectomy for [...] MD [facility] [address] [place], [place] [address] (Wo rk) 06/10/2022 Office Visit Dermatology Laura Scherer MD [facility] DR TE[address] OLOGY [place], [place] [address] (Wo rk) Scheduled Orders Name Type Priority Associated Order Schedule Diagnoses Echocardiogram Echocardiography Routine Chronic systolic Expec vlad: Transthoracic heart failure 05/22/2022 (Approximate), Expires: 11/21/2022 documented as of this encounter Results (ABNORMAL) Basic Metabolic Panel (non-fasting) (02/19/2022 8:06 AM EDT) athologist Signature Glucose Lvl 139 65 - [address] [facility] mg/dL [facility] LABORATORY Comment: Diabetes: >=200 mg/dL plus symp toms BUN 31 (H) 10 - 20 mg/dL [facility] LABORATORY Creatinine 1.53 (H) 0.80 - [...] mmol/L [facility] LABORATORY Calcium 9.7 8.5 - 10.5 [...] Organization Address City/State/[place] [address] (ABNORMAL) pro-Brain Natriuretic Peptide [...] Organization Address City/State/[place] [address] documented in this encounter Visit Diagnoses Diagnosis Chronic systolic heart failure documented in this encounter Care Teams Rib Trim Separator Relationship Specialty Start Date End Date Lovely Vicente MD PCP - General 04/16/[address] [place] [address] documented as of this encounter
--- OUTSIDE RECORDS SUMMARY | 2022-03-04 14:49 | XMS_ITS | Encounter Summary ---
:1945 Author Organization [facility] [address] Care Team Providers Name Role Phone Lovely Vicente MD Primary Care Provider Encounter Details Date Type Department Care Team Description 12/25/2021 Laboratory Appointment Lab 3L [facility] systolic [facility] [place] [phone] Social History Tobacco Use Types Packs/Day Years [...] [facility] CARDIOLOGY [place], [place] [address] (Wo rk) 06/10/2022 Office Visit Dermatology Laura Scherer MD [facility] DR TEJA GR-DERMAT OLOGY [place], [place] [address] (Wo rk) documented as of [...] (ABNORMAL) Differential, Automated (12/25/2021 7:46 AM EDT) [facility] Method Time Signature Neutrophils % 82.6 % [facility] LABORATORY Neutr Abs (ANC) 9.37 (H) 1.70 - [facility] 6.10 [facility] x10(3)/[facility] LABORATORY Lymphocytes % 7.1 % [facility] LABORATORY Lymphocytes Abs 0.8 (L) 0.9 - 3.2 [facility] x10(3)/[facility] LABORATORY Monocytes % 8.8 % [facility] LABORATORY Monocyte Abs 1.0 (H) 0.3 - 0.9 [facility] x10(3)/[facility] LABORATORY Eosinophils % 0.4 % [facility] LABORATORY Eosinophils Abs 0.0 0.0 - 0.4 [facility] x10(3)/[facility] LABORATORY Basophils % 0.4 % [facility] LABORATORY Basophils Abs 0.0 0.0 - 0.1 [facility] x10(3)/[facility] LABORATORY Immature Gran % 0.70 % [facility] [...] Gran Abs 0.08 (H) 0.00 - 0.04 x10(3)/[facility] LABORATORY Specimen Anatomical Collection Method Collection Time Receive d Time (Source) Location / / Volume Laterality Blood 12/25/2021 7:46 AM 2 8:01 EDT AM EDT Resulting Agency Comment Spec In Lab Liz BROWN HEMATOLOGY ORDERABLES Performing Organization Address City/State/[place] [address] (ABNORMAL) Hemogram (12/25/2021 7:46 AM EDT) Analysis Performed At Patho logist Time Signature WBC 11.4 (H) 4.0 - 9.5 [facility] x10(3)/[facility] LABORATORY RBC 4.23 (L) 4.58 - [facility] 5.54 [facility] x10(6)/[facility] LABORATORY Hemoglobin 12.3 (L) 13.7 - [facility] 16.5 g/dL [facility] LABORATORY Hematocrit 37.7 (L) 40.5 - [facility] 48.5 % [facility] LABORATORY MCV 89.1 82.9 - [facility] 93.1 [facility] LABORATORY MCH 29.1 27.5 - [facility] 32.1 pg [facility] LABORATORY MCHC 32.6 32.0 - [facility] 35.7 g/dL [facility] LABORATORY Platelets 215 145 - 357 [facility] x10(3)/[facility] LABORATORY RDWSD 49.8 (H) 36.0 - [facility] RYAN 45.0 [facility] LABORATORY RDWCV 15.2 (H) 11.4 - [facility] RYAN 13.8 % [facility] LABORATORY MPV 9.2 7.6 - 12.9 [facility] LABORATORY nRBC % Auto 0.0 % [facility] LABORATORY nRBC Abs Auto 0.000 0.000 - [facility] RYAN 0.000 [facility] x10(3)/[facility] LABORATORY Specimen Anatomical Collection Method Collection Time Receive d Time (Source) Location / / Volume Laterality Blood 12/25/2021 7:46 AM 2 8:01 EDT AM EDT Resulting Agency Comment Spec In Lab Liz BROWN HEMATOLOGY ORDERABLES Performing Organization Address City/State/[place] [address] (ABNORMAL) Basic Metabolic Panel (non-fasting) (12/25/2021 7:46 AM EDT) P athologist Signature Glucose Lvl 272 (H) 65 - 199 [facility] mg/dL [facility] LABORATORY Comment: Diabetes: >=200 mg/dL plus symp toms BUN 62 (H) 10 - 20 mg/dL [facility] LABORATORY Creatinine 1.81 (H) 0.80 - [...] Chloride 95 (L) 98 - 107 mmol/L [facility] LABORATORY CO2 28 22 - 31 mmol/L [facility] LABORATORY Anion Gap 11 5 - 15 mmol/L [facility] LABORATORY Calcium 9.4 8.5 - 10.5 mg/dL [facility] LABORATORY Estimated GFR 36 (L) >=60 mL/min/1.73 m?? [facility] [...] Organization Address City/State/[place] [address] (ABNORMAL) pro-Brain Natriuretic Peptide (12/25/2021 7:46 AM EDT) P athologist Signature ProBNP 1,380 (H) <=124 [place] DAVIS pg/mL [facility] LABORATORY Specimen Anatomical Collection Method Collection Time Receive d Time (Source) Location / / Volume Laterality Blood 12/25/2021 7:46 AM 2 8:01 EDT AM EDT Resulting Agency Comment Spec In Lab Zulma Plunkett MD CHEMISTRY ORDERABLES Performing Organization Address City/State/[place] [address] documented in this encounter Visit Diagnoses Diagnosis Chronic systolic heart failure documented in this encounter Care Teams Data Analysis Assistant Relationship Specialty Start Date End Date Lovely Vicente MD PCP - General 04/16/[address] [place] [address] documented as of this encounter
--- OUTSIDE RECORDS SUMMARY | 2022-03-04 14:49 | XMS_ITS | Encounter Summary ---
:1945 Author Organization [facility] [place] [address] Care Team Providers Name Role Phone Lovely Vicente MD Primary Care Provider Reason for Visit Reason Onset Date Comments Medication Refill 12/12/2021 [place]sem[place] Encounter Details Date Type Department Care Team Description 12/12/2021 Refill Cardiology at [facility] Janneth Padilla, Medication Refill [facility] STEPHANIE (Torsemide) [place] [id number] CARDIOLOGY DEPT. [place], [place] [address] (Wo rk) Social History Tobacco [...] MD [facility] [address] [place], [place] [address] (Wo rk) 06/10/2022 Office Visit Dermatology Laura Scherer MD [facility] [address] [place], [place] [address] (Wo rk) documented as of this encounter Visit Diagnoses Diagnosis Chronic systolic heart failure documented in this encounter Care Teams Behavioral Geneticist Relationship Specialty Start Date End Date Lovely Vicente MD PCP - General 04/16/[address] [place] [address] documented as of this encounter
--- OUTSIDE RECORDS SUMMARY | 2022-03-04 14:49 | XMS_ITS | Encounter Summary ---
:1945 Author Organization [facility] [place] [address] Care Team Providers Name Role Phone Lovely Vicente MD Primary Care Provider Reason for Referral Consultation (Routine) - Closed Specialty Diagnoses / Referred By Contact Referred To Contact Procedures Cardiac Rehabilitation Diagnoses Acute HFrEF (heart failure with reduced ejection fraction) Janneth Padilla, Cardiac Rehab, [address] [place], [place] CARDIOLOGY DEPT. [address] [place] [address] Referral ID Status Reason Start Date Expiration Date Visits V isits Requested Authorized [id number] Closed Consult, 12/12/2021 12/12/2022 36 36 Test & Treat Reason for Visit Auth/Cert Specialty Diagnoses / Procedures Referred By Contact Refer red To Contact Diagnoses NSTEMI Procedures emerg ipi Referral ID Status Reason Start Date Expiration Date Visits Requ ested Visits Authorized [id number] 1 1 Encounter Details Date Type Department Care Team Description 12/08/2021 - Hospital Encounter Intermediate Cardiac Iker Cuevas MD [facility] [place] [address] Non-ST elevation myocardial infarction ( NSTEMI); 12/12/2021 Care Unit Ifeanyi Rene MD [facility] [place] [address] ST elevation myocardial infarction (STEM I), unspecified artery; [facility] Acute HFr EF (heart failure with reduced ejection fraction) [place] [address] Social History Tobacco Use Types Packs/Day Years [...] Don Fatima Patient Age: 76 y.o. Language: Yoruba Race: White Ethnicity: Not nor Admit date: [...] Peter PA-C Kelly LaFlamme PA-C Cardiovascular Medicine [phone] Discharge Diagnoses (Hospital Problems) and Secondary Diagnoses [...] 3.75 guiding catheter and a 3.5 Fr [facility] [place] [facility] [place] [place] 20 Mhz using Manual pullback. Imaging was successful. Image quality was good. The ostial LCX showed moderate diffuse atherosclerotic plaque with scattered three quadrant calcification. Measurements were performed after pre-dilation. Post Intervention: The stent was well expanded and apposed. Intravascular Ultrasound was performed in the distal LM using a 7 Fr EBU 3.75 guiding catheter and a 3.5 Fr [facility] [place] [facility] [place] [facility] [place] 20 Mhz using Manual pullback. Imaging was [...] may require modification of this regimen. Consult [facility] Interventional Cardiology for [...] vascular congestion and cardiomegaly. ?? TTE from [facility] 12/08/21 ? Prior Cardiac Studies: [...] prior thyroidectomy in 2012 who presented to [facility] with 1 week progressing breathlessness [...] 03/2021 with Liz Poole PA-C. ?? At [facility], respiratory distress with hypoxia 86% [...] mg PO daily in place of lasix. [place] is new for him and he will have a BMP checked on 12/[address] Cuevas spoke with the patient's and told her that him drinking too much water and diet drinks did not cause his ME. This is what his thought was the [...] to be ~$24/mo; affordable per patient. Post [facility] he was started on [...] appointments: During 8am-5pm Wednesday through Wednesday call [phone] to speak with a nurse in the cardiology clinic All other times call [phone] and ask to speak to the manager wastewater mineral economist. Return to work: One week Driving: No driving for 48 hours after catheterization. Follow up Appointments: PCP Lovely Vicente MD [phone] to see patient at the end of December for annual check up. Patient to see Dr. Lorenzana at 1120 am at December 19 for a post hospital check up. Basin Finish Operator Tig Welder Dr. De Oliveira to see you in [facility]. Left a message for office to set a date and time. Please call [phone] Nobles to see the patient for a same day cath in 2-3 weeks from now. Office to call with a date and time. For questions please call [phone] Home oxygen therapy: N/A Arrangements for VNA/home care: none Future Appointments and Orders Future Orders Complete By Expires Basic Metabolic Panel (non-fasting) [LAB15 Custom] 12/19/2021 (Approximate) 12/12/2022 Process Instructions: INCLUDES: Calcium, BUN, Creat, GFR, Glucose, Lytes Scheduling Instructions: Comments: Questions: Referral to Cardiac Rehab [[id number] Custom] As directed Process Instructions: If no [...] appointments: During 8am-5pm Wednesday through Wednesday call [phone] to speak with a nurse in the cardiology clinic All other times call [phone] and ask to speak to the manager wastewater mineral economist. Return to work: One week Driving: No driving for 48 hours after catheterization. Follow up Appointments: PCP Lovely Vicente MD [phone] to see patient at the end of December for annual check up. Patient to see Dr. Lorenzana at 1120 am at December 19 for a post hospital check up. Basin Finish Operator Tig Welder Dr. De Oliveira to see you in [facility]. Left a message for office to set a date and time. Please call [phone] Nobles to see the patient for a same day cath in 2-3 weeks from now. Office to call with a date and time. For questions please call [phone] Home oxygen therapy: N/A Arrangements for VNA/home [...] by mouth 0 04/1402/26/2022 mg Tablet daily. acetaminophen Take 2 tablets by 0 [...] Progress Note Patient Name: Don Fatima Service: ECONOMICS INSTRUCTOR / PA Responsible Attending: Ifeanyi Truong MD [...] was given Lasix 80mg IV x1 in laborer car barn. Tolerated procedure well. Home today at 11 [...] 1.13* 0.92* 0.89* Pertinent Radiographic/Diagnostic Results: R/[facility] 12/10/21 Hemodynamics: Right Heart [...] pulmonary vascular congestion and cardiomegaly. TTE from [facility] 12/08/21 Prior Cardiac Studies: TTE [...] with MD Janneth Neville PA 12/12/2021 Pager [phone] Associated attestation - Ifeanyi Truong MD - [...] to monitor Discharge planning as appropriate Desirae Jtet APRN - 12/11/2021 12:11 PM EDT Images [...] ratio for each meal) Desirae Jett APRN [facility] Endocrinology Diabetes Management Pager [phone] 20 minutes of this 35 minute visit [...] Progress Note Patient Name: Don Fatima Service: ECONOMICS INSTRUCTOR / PA Responsible Attending: Iker Cuevas MD [...] + trop. Known CAD with hx of ME and CABG. DM. MARIA VICTORIA.ICM. ??? ASHD [...] was given Lasix 80mg IV x1 in laborer car barn. Tolerated procedure well. Review of Systems: Review [...] TROPONINT 1.13* 0.92* 0.89* Pertinent Radiographic/Diagnostic Results: /[facility] 12/10/21 Hemodynamics: Right Heart [...] pulmonary vascular congestion and cardiomegaly. TTE from [facility] 12/08/21 Prior Cardiac Studies: TTE [...] and answered his questions. Iker Cuevas MD [facility] Total time spent on review of records prior to visit, face to face time with patient during visit, documentation, and coordination of care with other clinicians: 25 minutes. . Iker Cuevas MD - 12/10/2021 12:30 PM EDT Images from the original note were not included. Inpatient Cardiology Progress Note Patient Name: Don Fatima Service: ECONOMICS INSTRUCTOR / PA Responsible Attending: Iker Cuevas MD Reason for continued hospitalization: NSTEMI- s/p R/LHC- PCW 27, occluded SVGs s/p PCI to ostial LCX ADHF and hypoxia- IV diuresis Active Problems: Active Hospital Problems Diagnosis ??? Admitted with 2 days of sob, hypoxemia, and + trop. Known CAD with hx of ME and CABG. DM. MARIA VICTORIA.ICM. ??? ASHD [...] was given Lasix 80mg IV x1 in laborer car barn. Tolerated procedure well. Review of Systems: Review [...] ??? heparin (porcine) infusion 1,600 Units/hr (12/09/21 5992) PRN Meds:ipratropium-albuteroL, senna-docusate, bisacodyL, sodium chloride 0.9 [...] 1.13* 0.92* 0.89* Pertinent Radiographic/Diagnostic Results: R/[facility] 12/10/21 Hemodynamics: Right Heart [...] pulmonary vascular congestion and cardiomegaly. TTE from [facility] 12/08/21 Prior Cardiac Studies: TTE [...] Discussed with MD Migdalia Peter PA-C Pager #[phone] 12/10/2021 Cardiology Attending Note I have seen [...] updated and given pictures. Iker Cuevas MD [facility] Total time spent on review of records prior to visit, face to face time with patient during visit, documentation, and coordination of care with other clinicians: 35 minutes. Iker Cuevas MD - 12/09/2021 7:28 AM EDT Images from the original note were not included. Inpatient Cardiology Progress Note Patient Name: Don Fatima Service: ECONOMICS INSTRUCTOR / PA Responsible Attending: Iker Cuevas MD Reason for continued hospitalization: NSTEMI- awaiting R/LHC ADHF and hypoxia- IV diuresis, R/LHC Active Problems: Active Hospital Problems Diagnosis ??? Admitted with 2 days of sob, hypoxemia, and + trop. Known CAD with hx of ME and CABG. DM. [place] VICTORIA.ICM. ??? ASHD [...] pulmonary vascular congestion and cardiomegaly. TTE from [facility] 12/08/21 Prior Cardiac Studies: TTE [...] Discussed with MD Migdalia Peter PA-C Pager #[phone] 12/09/2021 Cardiology Attending Note I have seen and examined the patient. I agree with the findings above. Developed CHF early this am despite getting more iv lasix last evening. Feeling better now. INR > 2. Lungs still wet at base. Echo at [facility] showed EF 35% with mild mod MR slightly lower than last value here. -vit K 2.5 orally to facilitate correction of INR- this will take 12-24 hours to take effect -furosemide 80 mg iv now -postpone right and left heart cath until tomorrow given INR and ADHF -increase statin to achieve LDL < 70 -CPAP tonight Iker Cuevas MD [facility] Total time spent on review of [...] + trop. Known CAD with hx of ME and CABG. DM. MARIA VICTORIA.ICM. ??? ASHD [...] prior thyroidectomy in 2012 who presented to [facility] with 1 week progressing breathlessness [...] visit 03/2021 with Liz Poole PA-C. At [facility], respiratory distress with hypoxia 86% [...] Manny Mcknight MD at [facility] OR ??? PRO AMPUTATION FOOT, TRANSMETATARSAL Right 08/09/2017 AMPUTATION, TRANSMETATARSAL (WRVU 12.71) performed by Yonathan Smith MD at [facility] OR ??? PRO CABG, ARTERIAL, SINGLE N/A 07/07/2017 @CABG, USING ARTERIAL GRAFT;SINGLE ARTERIAL GRAFT (WRVU 33.75) performed by Yuan Retana MD at [facility] OR ??? PRO CABG, ARTERY-VEIN, TWO N/A 07/07/2017 @CABG, TWO VENOUS GRAFTS & ARTERIAL GRAFT (WRVU 7.93) performed by Yuan Retana MD at [facility] OR ??? PRO COLONOSCOPY, REMV LESN, SNARE 01/16/2014 COLONOSCOPY, POLYPECTOMY, REMOVAL LESION BY SNARE performed by Nohemi Jaimes MD at [facility]COPY ??? PRO DRESSING CHANGE UNDER ANESTHESIA Right 08/11/2017 (MSURG) DRESSING CHANGE (FOR OTHER THAN IVAN) UNDER ANES. (WRVU 0.86) performed by Lamar Smith MD at [facility] OR ??? PRO ENDOSCOPY W/VIDEO-ASST VEIN HARVEST, CABG Right 07/07/2017 ENDOSCOPIC HARVEST VEIN(S) FOR CABG (WRVU 0.31) performed by Yuan Retana MD at [facility] OR ??? PRO THYROIDECTOMY 03/28/2013 THYROIDECTOMY, TOTAL OR COMPLETE performed by Manny Mcknight MD at [facility] OR Significant Family History: Family [...] (H) 65 - 199 mg/dL Labs at [facility] 12/08/2021-troponin I 8004 (UN L [...] for ADRs. Trend troponins. Admission EKG. [facility] 12/09; consented. TTE. Telemetry [...] #Diet-carb control; n.p.o. after midnight for [facility] #DVT prophy- heparin infusion #GI prophy- PPI Discussed with MD Morgan Peter PA-C APP2 pager [phone] 12/08/2021 Cardiology Attending Note I have seen [...] is type 1 due to graft or choctaw coronary stenosis vs acute injury from CHF. 3. PAF: currrently in NSR. Have replaced warfarin with heparin 4. PAD: stable 5. DM: stable 6. CKD: will monitor and minimize contrast. Pt very appreciative of Dr. Yuan Retana's care in 2018. Will let him know patient is here. Iker Cuevas MD [facility] documented in this encounter Miscellaneous Notes [...] Type: *No Product type* / Secondary Insurance: [employer] [place] Prescription Coverage: Yes This plan was formulated [...] cath without complications. Migdalia Parker PA-C Pager #[phone] 12/10/2021 Initial Assessments - Nick Georges RN [...] COVID test: Lab Results Component Value Date [id number] Not Detected 12/08/2021 Past medical History: Past [...] 180 days) Any patient receiving care at [facility] must abide by [place] law. The hierarchy [...] (i) The agent with financial power of deputy attorney general or a conservator appointed in accordance with [...] - standard, cane - straight Home Address: [address] [place] [address] [place] [address] Social & Family Supports: All names listed below confirmed with patient as current and correct Extended Emergency Contact Information Primary Emergency Contact: Kisha Fatima Address: [address] [place] [address] [place] [address] [facility] Mobile Relation: Spouse Secondary Emergency Contact: Elba Swenson Address: [place], [place] [id number] [place] [address] Mobile Relation: Child Current Care Provided by: [...] Type: *No Product type* / Secondary Insurance: Office [employer] [facility] Prescription Coverage: Yes Preferred Pharmacy: [facility] [address] - [place], [place] - [address] [place] [id number] Status: Patient is a : unable to assess Primary Care Provider: Lovely Vicente MD [phone] Patient/Caregiver Goals of Treatment: Get out of here Potential Needs for Transition of Care: none Agency Referrals: none patient has used [facility] in the past Transportation: no concerns Transportation Anticipated: family or friend will provide Concerns to be Addressed: patient refuses services, discharge planning Assessment: Patient is admitted to APP2 Service pager [phone] for 76 y.o.??male??with h/o??CAD s/p 3vCABG (THOMPSON-LAD, [...] status on current unit. Nick Georges RN inserter promotional item, Office of Care Management Pager: [phone] Brief Op Note - Vitaliy Nobles MD - 12/10/2021 8:31 AM EDT Images from the original note were not included. [facility] [place] [address] CORONARY ANGIOGRAM AND PERCUTANEOUS CORONARY INTERVENTION REPORT Patient: Don Fatima : 1945 MR number: [id number] Date of Service: 12/10/2021 International Nurse: Vitaliy Nobles MD Fellow: [place] MD [...] management and to provide a review of middle or intermediate school principal diabetes care. Diabetes History: Don Fatima has had diabetes for 10 years. He has been on insulin for the last several years andis managed by his PCP. Lives in [place], [place] with his . States that he [...] Hold] heparin (porcine) infusion 1,600 Units/hr (12/09/21 8477) PRN: [SEP Hold] ipratropium-albuteroL, [SEP Hold] senna-docusate, [...] 5 gm carb ratio for each meal) manager long term care diabetes care: Medications - Outpatient treatment regimen recommendations pending based on the hospital course. Monitoring - continue BG tid ac & hs Diet - low fat/low carb diet Exercise - weight-bearing exercise 30 min/day, as tolerated Thank you for allowing us to provide care for your patient Desirae Johnie QUINONES Endocrinology Pager [phone] 70 minutes of this 80 minute visit [...] + trop. Known CAD with hx of ME and CABG. DM. MARIA VICTORIA.ICM. ??? ASHD [...] to remain on Med/Surg floor, please page [phone] for any further questions or concerns. LANDON [...] for further details. STEPHANIE Rebolledo 12/08/2021 Pager [phone] documented in this encounter Plan of Treatment Upcoming Encounters Date Type Specialty Care Team Description 03/26/2022 Office Visit Cardiology Nobles, Vitaliy P, MD [facility] ER CARDIOLOGY [place], [place] [address] (Wo rk) 06/10/2022 Office Visit Dermatology Laura Scherer MD [facility] [address] [place] [place] [address] (Wo rk) Scheduled Referrals Name [...] 215 (H) 65 - 199 [facility] mg/dL [facility] Comment: Supplemental ranges: <140 mg/dL before meals <180 mg/dL all other times of the day Specimen Anatomical Collection Method Collection Time Receive d Time (Source) Location / / Volume Laterality Blood 12/12/2021 7:42 AM 7:42 EDT AM EDT Ifeanyi Truong MD POINT OF CARE TEST ORDERABLE S Performing Organization Address City/State/[place] [address] (ABNORMAL) Differential, Automated (12/12/2021 4:51 AM EDT) athologist Signature Neutrophils % 75.4 % [facility] Neutr Abs (ANC) 5.95 1.70 - [facility] 6.10 [facility] x10(3)/[facility] LABORATORY Lymphocytes % 12.2 % [facility] Lymphocytes Abs 1.0 0.9 - 3.2 [facility] x10(3)/[facility] LABORATORY Monocytes % 9.5 % [facility] Monocyte Abs 0.8 0.3 - 0.9 [facility] x10(3)/[facility] LABORATORY Eosinophils % 1.8 % [facility] Eosinophils Abs 0.1 0.0 - 0.4 [facility] x10(3)/[facility] LABORATORY Basophils % 0.5 % [facility] Basophils Abs 0.0 0.0 - 0.1 [facility] x10(3)/[facility] LABORATORY Immature Gran % 0.60 % [facility] [...] Abs 0.05 (H) 0.00 - 0.04 x10(3)/[facility] LABORATORY Specimen Anatomical Collection Method Collection Time Receive d Time (Source) Location / / Volume Laterality Blood 12/12/2021 4:51 AM 5:06 EDT AM EDT Resulting Agency Comment Spec In Lab Bijan Sun MD HEMATOLOGY ORDERABLES Performing Organization Address City/State/[place] [address] (ABNORMAL) Hemogram (12/12/2021 4:51 AM EDT) Analysis Performed At Patho logist Time Signature WBC 7.9 4.0 - 9.5 [facility] x10(3)/[facility] LABORATORY RBC 4.19 (L) 4.58 - [facility] [address] [facility] x10(6)/[facility] LABORATORY Hemoglobin 12.1 (L) 13.7 - [facility] 16.5 g/dL [facility] Hematocrit 36.7 (L) 40.5 - [facility] 48.5 % [facility] MCV 87.6 82.9 - [facility] 93.1 [facility] LABORATORY MCH 28.9 27.5 - [facility] [address] [facility] MCHC 33.0 32.0 - [facility] 35.7 g/dL [facility] Platelets 231 145 - 357 [facility] x10(3)/[facility] LABORATORY RDWSD 47.2 (H) 36.0 - [facility] 45.0 [facility] LABORATORY RDWCV 14.6 (H) 11.4 - [facility] 13.8 % [facility] MPV 9.5 7.6 - 12.9 [facility] nRBC % Auto 0.0 % [facility] nRBC Abs Auto 0.000 0.000 - [facility] [address] [facility] x10(3)/[facility] LABORATORY Specimen Anatomical Collection Method Collection Time Receive d Time (Source) Location / / Volume Laterality Blood 12/12/2021 4:51 AM 2 5:06 EDT AM EDT Resulting Agency Comment Spec In Lab Bijan Sun MD HEMATOLOGY ORDERABLES Performing Organization Address City/[facility]/ZIP [facility] [place] [address] (ABNORMAL) Prothrombin Time (12/12/2021 4:51 AM EDT) P athologist Signature PT 14.9 (H) 9.4 - 12.5 [facility] LABORATORY INR 1.3 [facility] [...] Cuevas MD HEMATOLOGY ORDERABLES Performing Organization Address City/[facility]/ZIP Code Phon e Number [place] [id number] (ABNORMAL) BMP w/fasting Glucose (12/12/2021 4:51 AM EDT) P athologist Signature Glucose 152 (H) 65 - 99 [facility] Fasting mg/dL [facility] Comment: ?Fasting* Glucose Interpretive C [...] of Diabetes Mellitus, Position Statement from the [place] [employer]. ??Diabete s Care, Volume 33, [...] Cuevas MD CHEMISTRY ORDERABLES Performing Organization Address City/[facility]/[place] [address] Magnesium (12/12/2021 4:51 AM EDT) athologist Signature Magnesium 1.02 0.69 - 1.07 [facility] mmol/L [facility] Specimen Anatomical Collection Method Collection Time Receive d Time (Source) Location / / Volume Laterality Blood 12/12/2021 4:51 AM 2 5:06 EDT AM EDT Resulting Agency Comment Spec In Lab Iker Cuevas MD CHEMISTRY ORDERABLES Performing Organization Address City/[facility]/[place] [address] POCT Glucose (12/12/2021 3:43 AM EDT) athologist Signature POC Glucose 138 65 - 199 [facility] mg/dL [facility] Comment: Supplemental ranges: <140 mg/dL before meals <180 mg/dL all other times of the day Specimen Anatomical Collection Method Collection Time Receive d Time (Source) Location / / Volume Laterality Blood 12/12/2021 3:43 AM 2 3:43 EDT AM EDT Iker Cuevas MD POINT OF CARE TEST ORDERABLE S Performing Organization Address City/[facility]/ZIP Code Phon e Number [address] POCT Glucose (12/11/2021 11:44 PM EDT) athologist Signature POC Glucose 124 65 - 199 [facility] mg/dL [facility] Comment: Supplemental ranges: <140 mg/dL before meals <180 mg/dL all other times of the day Specimen Anatomical Collection Method Collection Time Receive d Time (Source) Location / / Volume Laterality Blood 12/11/2021 11:44 12/11/2021 PM EDT 11:44 PM EDT Iker Cuevas MD POINT OF CARE TEST ORDERABLE S Performing Organization Address City/State/[place] [address] (ABNORMAL) POCT Glucose (12/11/2021 8:12 PM EDT) P athologist Signature POC Glucose 200 (H) 65 - 199 [facility] mg/dL [facility] Comment: Supplemental ranges: <140 mg/dL before meals <180 mg/dL all other times of the day Specimen Anatomical Collection Method Collection Time Receive d Time (Source) Location / / Volume Laterality Blood 12/11/2021 8:12 PM 2 8:12 EDT PM EDT Iker Cuevas MD POINT OF CARE TEST ORDERABLE S Performing Organization Address City/State/[place] [address] (ABNORMAL) POCT Glucose (12/11/2021 6:50 PM EDT) P athologist Signature POC Glucose 245 (H) 65 - 199 [facility] mg/dL [facility] Comment: Supplemental ranges: <140 mg/dL before meals <180 mg/dL all other times of the day Specimen Anatomical Collection Method Collection Time Receive d Time (Source) Location / / Volume Laterality Blood 12/11/2021 6:50 PM 2 6:50 EDT PM EDT Iker Cuevas MD POINT OF CARE TEST ORDERABLE S Performing Organization Address City/State/[place] [address] (ABNORMAL) POCT Glucose (12/11/2021 4:00 PM EDT) P athologist Signature POC Glucose 383 (H) 65 - 199 [facility] mg/dL [facility] Comment: Supplemental ranges: <140 mg/dL before meals <180 mg/dL all other times of the day Specimen Anatomical Collection Method Collection Time Receive d Time (Source) Location / / Volume Laterality Blood 12/11/2021 4:00 PM 4:00 EDT PM EDT Iker Cuevas MD POINT OF CARE TEST ORDERABLE S Performing Organization Address City/State/[place] [address] (ABNORMAL) POCT Glucose (12/11/2021 12:01 PM EDT) P athologist Signature POC Glucose 342 (H) 65 - 199 [facility] mg/dL [facility] Comment: Supplemental ranges: <140 mg/dL before meals <180 mg/dL all other times of the day Specimen Anatomical Collection Method Collection Time Receive d Time (Source) Location / / Volume Laterality Blood 12/11/2021 12:01 12/11/2021 PM EDT 12:01 PM EDT Iker Cuevas MD POINT OF CARE TEST ORDERABLE S Performing Organization Address City/State/[place] [address] COVID-19 PCR (12/11/2021 10:13 AM EDT) Patholo gist Method Time Signature SARS-CoV-2 Not Detected Not Detected [facility]BARA RNA [facility] Comment: This result [...] diagnosis of COVID-19 is performed using the [employer] Al[employer] m RONNA S-CoV-2 Assay as authorized by the FDA Emergency Use Authorization (EUA). This EUA assay is intended for In-vitro Diagnostic (IVD) use with respiratory sp ecimens such as nasopharyngeal swabs collected from individuals during the ac terrence phase of infection. This assay is performed based on the instructions for use provided by [employer] and additional guidance provided by CDC and FDA. Testing is performed in the Clinical [facility] within the Department of Pathology and Laboratory Medicine at [facility], certified under the Clinical Laboratory Improvement Amendments [...] fact sheets at the following FDA website: https://www.fda.gov/medical-devices/qjpdwxwglzj-htiivfm-1039-gzpjx-08-enpccsfzf- dwo-jhnnqdjxqzzoht-wmsqgci-devices/niwvk-bodsbkwzclz-jyws SARS-Cov-2 RNA Source [employer] Swab [facility] Specimen (Source) Anatomical Collection Method Collection Time Re ceived Time Location / / Volume Laterality Nasopharyngeal Swab 12/11/2021 10:13 11/23 AM EDT 11:16 AM EDT Comment: Symptoms->Surveillance Resulting Agency Comment Spec In Lab Iker Cuevas MD MICROBIOLOGY - GENERAL ORDER [place] Performing Organization Address City/State/[place] [address] POCT Glucose (12/11/2021 7:34 AM EDT) athologist Signature POC Glucose 198 65 - 199 [facility] mg[facility] Comment: Supplemental ranges: <140 mg/dL before meals <180 mg/dL all other times of the day Specimen Anatomical Collection Method Collection Time Receive d Time (Source) Location / / Volume Laterality Blood 12/11/2021 7:34 AM 2 7:34 EDT AM EDT Iker Cuevas MD POINT OF CARE TEST ORDERABLE S Performing Organization Address City/[facility]/[place]IP [place] [address] (ABNORMAL) POCT Glucose (12/11/2021 5:07 AM EDT) P athologist Signature POC Glucose 208 (H) 65 - 199 [facility]dL [facility] Comment: Supplemental ranges: <140 mg/dL before meals <180 mg/dL all other times of the day Specimen Anatomical Collection Method Collection Time Receive d Time (Source) Location / / Volume Laterality Blood 12/11/2021 5:07 AM 2 5:07 EDT AM EDT Iker Cuevas MD POINT OF CARE TEST ORDERABLE S Performing Organization Address City/State/[place] [address] (ABNORMAL) Differential, Automated (12/11/2021 4:28 AM EDT) [facility] gist Method Time Signature Neutrophils % 79.6 % [facility] Neutr Abs (ANC) 7.01 (H) 1.70 - [facility] 6.10 [facility] x10(3)/[facility] LABORATORY Lymphocytes % 9.1 % [facility] Lymphocytes Abs 0.8 (L) 0.9 - 3.2 [facility] x10(3)/[facility] LABORATORY Monocytes % 9.2 % [facility] Monocyte Abs 0.8 0.3 - 0.9 [facility] x10(3)/[facility] LABORATORY Eosinophils % 1.3 % [facility] Eosinophils Abs 0.1 0.0 - 0.4 [facility] x10(3)/[facility] LABORATORY Basophils % 0.5 % [facility] Basophils Abs 0.0 0.0 - 0.1 [facility] x10(3)/[facility] LABORATORY Immature Gran % 0.30 % MAY[facility] [...] Gran Abs 0.03 0.00 - 0.04 x10(3)/[facility] LABORATORY Specimen Anatomical Collection Method Collection Time Receive d Time (Source) Location / / Volume Laterality Blood 12/11/2021 4:28 AM 4:37 EDT AM EDT Resulting Agency Comment Spec In Lab Bijan Sun MD HEMATOLOGY ORDERABLES Performing Organization Address City/State/[place] [address] (ABNORMAL) Hemogram (12/11/2021 4:28 AM EDT) Analysis Performed At Patho logist Time Signature WBC 8.8 4.0 - 9.5 [facility] x10(3)/[facility] LABORATORY RBC 4.15 (L) 4.58 - [facility] 5.54 [facility] x10(6)/[facility] LABORATORY Hemoglobin 11.9 (L) 13.7 - [facility] 16.5 g/dL [facility] Hematocrit 36.9 (L) 40.5 - [facility] 48.5 % [facility] MCV 88.9 82.9 - [facility] RY[facility] 93.1 [facility] LABORATORY MCH 28.7 27.5 - [facility] OLIVASCK [address] [facility] MCHC 32.2 32.0 - [facility] DAVIS 35.7 g/dL [facility] Platelets 211 145 - 357 [facility] x10(3)/[facility] LABORATORY RDWSD 48.3 (H) 36.0 - [facility] DAVIS 45.0 [facility] LABORATORY RDWCV 14.8 (H) 11.4 - [facility] R[facility] 13.8 % [facility] MPV 9.6 7.6 - 12.9 [facility] LABORATORY nRBC % Auto 0.0 % [facility] nRBC Abs Auto 0.000 0.000 - [facility] DAVIS [address].000 [facility] x10(3)/[facility] LABORATORY Specimen Anatomical Collection Method Collection Time Receive d Time (Source) Location / / Volume Laterality Blood 12/11/2021 4:28 AM 2 4:37 EDT AM EDT Resulting Agency Comment Spec In Lab Bijan Sun MD HEMATOLOGY ORDERABLES Performing Organization Address City/State/ZIP Code Phon e Number [place] [id number] (ABNORMAL) Prothrombin Time (12/11/2021 4:28 AM EDT) P athologist Signature PT 17.7 (H) 9.4 - 12.5 [facility] LABORATORY INR 1.6 [facility] Comment: An INR [...] Organization Address City/State/[place] [address] (ABNORMAL) BMP w/fasting Glucose (12/11/2021 4:28 AM EDT) P athologist Signature Glucose 207 (H) 65 - 99 [facility] Fasting mg/dL [facility] Comment: ?Fasting* Glucose Interpretive C [...] of Diabetes Mellitus, Position Statement from the [place] [employer]. ??Diabete s Care, Volume 33, Supplement 1, Jul 2009 BUN 49 (H) 10 - 20 mg/dL [facility] LABORATORY Creatinine 1.43 0.80 - 1.50 mg/dL [facility]ORY Sodium 142 135 - 145 mmol/L [facility] Potassium 4.0 3.5 - 5.0 mmol/L [facility] [...] mg/dL [facility] Estimated GFR 48 (L) >=60 mL/min/1.73 m?? [facility] [...] Organization Address City/State/[place] [address] Magnesium (12/11/2021 4:28 AM EDT) P athologist Signature Magnesium 1.04 0.69 - 1.07 [facility] mmol/L [facility] Specimen Anatomical Collection Method Collection Time Receive d Time (Source) Location / / Volume Laterality Blood 12/11/2021 4:28 AM 2 4:37 EDT AM EDT Resulting Agency Comment Spec In Lab Iker Cuevas MD CHEMISTRY ORDERABLES Performing Organization Address City/[facility]/[place]IP [place] [address] POCT Glucose (12/11/2021 3:58 AM EDT) P athologist Signature POC Glucose 189 65 - 199 [facility] mg/dL [facility] Comment: Supplemental ranges: <140 mg/dL before meals <180 mg/dL all other times of the day Specimen Anatomical Collection Method Collection Time Receive d Time (Source) Location / / Volume Laterality Blood 12/11/2021 3:58 AM 2 3:58 EDT AM EDT Iker Cuevas MD POINT OF CARE TEST ORDERABLE S Performing Organization Address City/[facility]/[place] [address] (ABNORMAL) POCT Glucose (12/10/2021 11:45 PM EDT) athologist Signature POC Glucose 205 (H) 65 - 199 [facility] mg/dL [facility] Comment: Supplemental ranges: <140 mg/dL before meals <180 mg/dL all other times of the day Specimen Anatomical Collection Method Collection Time Receive d Time (Source) Location / / Volume Laterality Blood 12/10/2021 11:45 12/10/2021 PM EDT 11:45 PM EDT Iker Cuevas MD POINT OF CARE TEST ORDERABLE S Performing Organization Address City/[facility]/[place] [address] (ABNORMAL) POCT Glucose (12/10/2021 7:54 PM EDT) athologist Signature POC Glucose 225 (H) 65 - 199 [facility] mg/dL [facility] Comment: Supplemental ranges: <140 mg/dL before meals <180 mg/dL all other times of the day Specimen Anatomical Collection Method Collection Time Receive d Time (Source) Location / / Volume Laterality Blood 12/10/2021 7:54 PM 2 7:54 EDT PM EDT Iker Cuevas MD POINT OF CARE TEST ORDERABLE S Performing Organization Address City/State/[place] [address] Potassium (12/10/2021 7:46 PM EDT) athologist Signature Potassium 4.2 3.5 - 5.0 [facility] mmol/L [facility] Comment: Please note: ??Patients with [...] Organization Address City/State/[place] [address] (ABNORMAL) Basic Metabolic Panel (non-fasting) (12/10/2021 6:12 PM EDT) athologist Signature Glucose Lvl 246 (H) 65 - 199 [facility] mg/dL [facility] Comment: Diabetes: >=200 mg/dL plus symp toms BUN 50 (H) 10 - 20 mg/dL [facility] LABORATORY Creatinine 1.39 0.80 - 1.50 mg/dL [facility] Sodium 138 135 - 145 mmol/L [facility] Potassium Not Perf 3.5 - 5.0 [facility] Comment: Unable to quantitate due [...] 107 mmol/L [facility] CO2 22 22 - 31 mmol/L [facility] Anion Gap 16 (H) 5 - 15 mmol/L [facility] LABORATORY Calcium 8.3 (L) 8.5 - 10.5 mg/dL [facility] Estimated GFR 49 (L) >=60 mL/min/1.73 m?? [facility] [...] Cuevas MD CHEMISTRY ORDERABLES Performing Organization Address City/[facility]/[place] [address] POCT Glucose (12/10/2021 4:59 PM EDT) athologist Signature POC Glucose 158 65 - 199 [facility] mg/dL [facility] Comment: Supplemental ranges: <140 mg/dL before meals <180 mg/dL all other times of the day Specimen Anatomical Collection Method Collection Time Receive d Time (Source) Location / / Volume Laterality Blood 12/10/2021 4:59 PM 2 4:59 EDT PM EDT Iker Cuevas MD POINT OF CARE TEST ORDERABLE S Performing Organization Address City/State/ZIP [facility] [place] [address] (ABNORMAL) POCT Glucose (12/10/2021 12:43 PM EDT) athologist Signature POC Glucose 241 (H) 65 - 199 [facility] mg/dL [facility] Comment: Supplemental ranges: <140 mg/dL before meals <180 mg/dL all other times of the day Specimen Anatomical Collection Method Collection Time Receive d Time (Source) Location / / Volume Laterality Blood 12/10/2021 12:43 12/10/2021 PM EDT 12:43 PM EDT Iker Cuevas MD POINT OF CARE TEST ORDERABLE S Performing Organization Address City/State/[place] [address] EKG 12 Lead (12/10/2021 11:17 AM EDT) Component Value Ref Range Test Analysis Performed Pathologis t Method Time At Signature Ventricular rate 62 BPM MUSE SYSTEM Atrial Rate 62 BPM MUSE SYSTEM P-R Interval 142 ms MUSE SYSTEM QRS Duration 100 ms MUSE SYSTEM Q-T Interval 434 ms MUSE SYSTEM QTC Calculated 440 ms MUSE SYSTEM (Bezet) Calculated P [place] 34 degrees MUSE SYSTEM Calculated R [place] -39 degrees MUSE SYSTEM Calculated T [place] 92 degrees MUSE SYSTEM INTERPRETATION Normal sinus [...] SYSTEM - 12/10/2021 12:04 PM E DT ?[facility] ? Cardiac Cathete rization/Intervention Report ? Patient Name: Don Fatima. ? Procedure Date: 12/10/2021 ? A #: [id number] ? Primary Physician: Nobles, Vitaliy P ? Case #: [id number] ? File Name: [id number] ? Catheterization Order Number: [id number] ? [facility] ? Final Report [place], [place] ? Patient Name: ? Don E. Stewa rt ? ID#: ?[id number] ? : ?1945 ? Procedure Date: ? December 10, 2021 ? Case #: ? [id number] ? Room: ? 1 ? Case Physician: [...] was ?designated as ASA Class III. e [facility] clinical frailty scale is 5: Mildly [...] was Urgent. 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 ??Imaging was [...] ?3.75 guiding catheter and a 3.5 Fr [facility] 20 Mhz using Manual ?pullback. ??Imaging was [...] require ?modification of this regimen. C onsult [facility] Interventional Cardiology for ?questions. ?The 1 year bleeding risk as nusrat culated by the PRECISE DAPT score is High ?risk. ?High Bleeding Risk - Anticoagul ation and DAPT: ?- ??Assess ischemic and bleedin g risks using validated risk predictors ?(e.g. CHADS2-VASC, HAS-BLED, [place] ECISE DAPT, DAPT Score) ?- ??Keep anticoagulant [...] Procedure Note Vitaliy Nobles MD - 01/14/2022 [facility] Cardiac Catheterization/Intervention Re port Patient Name: Don FatimaMadiha Procedure Date: 12/10/2021 A #: [id number] Primary Physician: Vitaliy Nobles Case #: [id number] File Name: [id number] Catheterization Order Number: [id number] [facility] Final Report [place], [place] Patient Name: Don Fatima ID#: [...] e was Urgent. The indication for the laborer car barn visit is ACS greater than 24 hrs [...] 3.5 Fr [facility] [place] [facility] [place] 20 Mhz using Manual pullback. Imaging was [...] 3.5 Fr [facility] [place] 20 Mhz using Manual pullback. Imaging was [...] require modification of this regimen. Consult D [facility] Interventional Cardiology for questions. The 1 year [...] POC Glucose 262 (H) 65 - 199 [facility] mg/dL [facility] Comment: Supplemental ranges: <140 mg/dL before meals <180 mg/dL all other times of the day Specimen Anatomical Collection Method Collection Time Receive d Time (Source) Location / / Volume Laterality Blood 12/10/2021 10:30 12/10/2021 AM EDT 10:30 AM EDT Iker Cuevas MD POINT OF CARE TEST ORDERABLE S Performing Organization Address City/[facility]/[place] [address] (ABNORMAL) POCT Glucose (12/10/2021 9:48 AM EDT) athologist Signature POC Glucose 279 (H) 65 - 199 [facility] mg/dL [facility] Comment: Supplemental ranges: <140 mg/dL before meals <180 mg/dL all other times of the day Specimen Anatomical Collection Method Collection Time Receive d Time (Source) Location / / Volume Laterality Blood 12/10/2021 9:48 AM 9:48 EDT AM EDT Iker Cuevas MD POINT OF CARE TEST ORDERABLE S Performing Organization Address City/[facility]/[place] [address] (ABNORMAL) POCT Glucose (12/10/2021 9:07 AM EDT) athologist Signature POC Glucose 268 (H) 65 - 199 [facility] mg/dL [facility] Comment: Supplemental ranges: <140 mg/dL before meals <180 mg/dL all other times of the day Specimen Anatomical Collection Method Collection Time Receive d Time (Source) Location / / Volume Laterality Blood 12/10/2021 9:07 AM 9:07 EDT AM EDT Iker Cuevas MD POINT OF CARE TEST ORDERABLE S Performing Organization Address City/State/[place] [address] (ABNORMAL) Point of Care Blood Gas Historical (12/10/2021 9:04 AM EDT) Patholo gist Method Time Signature POC pH 7.40 7.35 - [facility] [address] [facility] POC PCO2 40 35 - 45 [facility] LABORATORY POC PO2 63 (L) 85 - 104 [facility] LABORATORY POC Base Excess 0.0 -3.0 - 3.0 [facility] K mmol/L [facility] POC HCO3 24.8 20.0 - [facility] 26.0 [facility] Sodium 143 135 - 145 [facility] mmol/L [facility] POC Potassium 3.7 3.5 - 5.0 [facility] mmol/L [facility] POC Ionized Ca 1.07 (L) 1.15 - [facility] 1.33 [facility] POC Hematocrit 30.0 (L) 40.0 - [facility] 51.0 % [facility] POC Calc Hgb 10.2 (L) 13.7 - [facility] 17.5 g/dL [facility] Comment: The calculation of hemoglobin f rom hematocrit assumes a normal MCHC. POC Bgas Loc CC LAB [facility] LABORATORY Specimen Anatomical Collection Method Collection Time Receive d Time (Source) Location / / Volume Laterality Blood 12/10/2021 9:04 AM 2 EDT 12:00 PM EDT Ifeanyi Truong MD CHEMISTRY ORDERABLES Performing Organization Address City/State/[place] [address] (ABNORMAL) POCT Glucose (12/10/2021 7:19 AM EDT) P athologist Signature POC Glucose 274 (H) 65 - 199 [facility] mg/dL [facility] Comment: Supplemental ranges: <140 mg/dL before meals <180 mg/dL all other times of the day Specimen Anatomical Collection Method Collection Time Receive d Time (Source) Location / / Volume Laterality Blood 12/10/2021 7:19 AM 2 7:19 EDT AM EDT Iker Cuevas MD POINT OF CARE TEST ORDERABLE S Performing Organization Address City/[facility]/[place] [address] Heparin (unfractionated) Level (12/10/2021 4:25 AM EDT) athologist [facility] Heparin UFH 0.69 IU/mL [facility] [...] Cuevas MD HEMATOLOGY ORDERABLES Performing Organization Address City/[facility]/ZIP Code Phon e Number [address] (ABNORMAL) Differential, Automated (12/10/2021 4:25 AM EDT) Patholo gist Method Time Signature Neutrophils % 79.8 % [facility] Neutr Abs (ANC) 7.47 (H) 1.70 - [facility] 6.10 [facility] x10(3)/[facility] LABORATORY Lymphocytes % 10.6 % [facility] Lymphocytes Abs 1.0 0.9 - 3.2 [facility] x10(3)/[facility] LABORATORY Monocytes % 8.4 % [facility] Monocyte Abs 0.8 0.3 - 0.9 [facility] x10(3)/[facility] LABORATORY Eosinophils % 0.6 % [facility] Eosinophils Abs 0.1 0.0 - 0.4 [facility] x10(3)/[facility] LABORATORY Basophils % 0.2 % [facility] Basophils Abs 0.0 0.0 - 0.1 [facility] x10(3)/[facility] LABORATORY Immature Gran % 0.40 % MAY[facility] [...] Gran Abs 0.04 0.00 - 0.04 x10(3)/[facility] MAR Y [facility] LABORATORY Specimen Anatomical Collection Method Collection Time Receive d Time (Source) Location / / Volume Laterality Blood 12/10/2021 4:25 AM 2 4:34 EDT AM EDT Resulting Agency Comment Spec In Lab Morgan BROWN HEMATOLOGY ORDERABLES Performing Organization Address City/State/[place] [address] (ABNORMAL) Hemogram (12/10/2021 4:25 AM EDT) Analysis Performed At Patho logist Time Signature WBC 9.4 4.0 - 9.5 [facility] x10(3)/[facility] LABORATORY RBC 3.81 (L) 4.58 - [facility] 5.54 [facility] x10(6)/[facility] LABORATORY Hemoglobin 11.1 (L) 13.7 - [facility] R[facility] 16.5 g/dL [facility] LAB[facility]ORY Hematocrit 34.0 (L) 40.5 - [facility] DAVIS 48.5 % [facility] LAB[facility] MCV 89.2 82.9 - [facility] RYAN 93.1 [facility] LABORATORY MCH 29.1 27.5 - [facility] 32.[address] [facility] LAB[facility]AT[facility] MCHC 32.6 32.0 - [facility] OLIVASCK 35.7 g/dL [facility] Platelets 183 145 - 357 [facility] x10(3)/[facility] LABORATORY RDWSD 49.9 (H) 36.0 - [facility] DAVIS 45.0 [facility] RDWCV 15.2 (H) 11.4 - [facility] 13.8 % [facility] LAB[facility] MPV 9.8 7.6 - 12.9 [facility] nRBC % Auto 0.0 % [facility] nRBC Abs Auto 0.000 0.000 - [place] RYAN [address] [facility] x10(3)/[facility] LABORATORY Specimen Anatomical Collection Method Collection Time Receive d Time (Source) Location / / Volume Laterality Blood 12/10/2021 4:25 AM 4:34 EDT AM EDT Resulting Agency Comment Spec In Lab Morgan BROWN HEMATOLOGY ORDERABLES Performing Organization Address City/State/[place] [address] (ABNORMAL) Prothrombin Time (12/10/2021 4:25 AM EDT) P athologist Signature PT 20.0 (H) 9.4 - 12.5 [facility] LABORATORY INR 1.7 [facility] LABORATORY Comment: An INR [...] Organization Address City/State/[place] [address] (ABNORMAL) BMP w/fasting Glucose (12/10/2021 4:25 AM EDT) athologist Signature Glucose 210 (H) 65 - 99 [facility] Fasting mg/dL [facility] Comment: ?Fasting* Glucose Interpretive C [...] of Diabetes Mellitus, Position Statement from the [place] [employer]. ??Diabete s Care, Volume 33, [...] Calcium 8.0 (L) 8.5 - 10.5 mg/dL [facility] LABORATORY Estimated GFR 44 (L) >=60 mL/min/1.73 m?? [facility] [...] Address City/State/ZIP Code Phon e Number [address] Magnesium (12/10/2021 4:25 AM EDT) P athologist Signature Magnesium 0.95 0.69 - 1.07 [facility] mmol/L [facility] LAB[facility]ORY Specimen Anatomical Collection Method Collection Time Receive d Time (Source) Location / / Volume Laterality Blood 12/10/2021 4:25 AM 2 4:34 EDT AM EDT Resulting Agency Comment Spec In Lab Iker Cuevas MD CHEMISTRY ORDERABLES Performing Organization Address City/[facility]/ZIP Code Phon e Number [address] POCT Glucose (12/10/2021 1:58 AM EDT) P athologist Signature POC Glucose 164 65 - 199 [facility] mg/dL [facility] LABORATORY Comment: Supplemental ranges: <140 mg/dL before meals <180 mg/dL all other times of the day Specimen Anatomical Collection Method Collection Time Receive d Time (Source) Location / / Volume Laterality Blood 12/10/2021 1:58 AM 2 1:58 EDT AM EDT Iker Cuevas MD POINT OF CARE TEST ORDERABLE S Performing Organization Address City/[facility]/[place] [address] (ABNORMAL) POCT Glucose (12/09/2021 9:02 PM EDT) athologist Signature POC Glucose 313 (H) 65 - 199 [facility] mg/dL [facility] Comment: Supplemental ranges: <140 mg/dL before meals <180 mg/dL all other times of the day Specimen Anatomical Collection Method Collection Time Receive d Time (Source) Location / / Volume Laterality Blood 12/09/2021 9:02 PM 2 9:02 EDT PM EDT Iker Cuevas MD POINT OF CARE TEST ORDERABLE S Performing Organization Address City/State/[place] [address] Heparin (unfractionated) Level (12/09/2021 7:30 PM EDT) athologist Signature Heparin UFH 0.48 IU/mL [facility] LABORATORY [...] Organization Address City/State/[place] [address] (ABNORMAL) Basic Metabolic Panel (non-fasting) (12/09/2021 7:30 PM EDT) athologist Signature Glucose Lvl 372 (H) 65 - 199 [facility] mg/dL [facility] LABORATORY [...] 107 mmol/L [facility] LABORATORY CO2 22 22 - 31 mmol/L [facility] Anion Gap 14 5 - 15 mmol/L [facility] LABORATORY Calcium 8.1 (L) 8.5 - 10.5 mg/dL [facility] LABORATORY Estimated GFR 37 (L) >=60 mL/min/1.73 m?? [facility] [...] Organization Address City/State/[place] [address] (ABNORMAL) POCT Glucose (12/09/2021 6:34 PM EDT) athologist Signature POC Glucose 408 (H) 65 - 199 [facility] mg[facility]dL [facility] Comment: Supplemental ranges: <140 mg/dL before meals <180 mg/dL all other times of the day Specimen Anatomical Collection Method Collection Time Receive d Time (Source) Location / / Volume Laterality Blood 12/09/2021 6:34 PM 2 6:34 EDT PM EDT Iker Cuevas MD POINT OF CARE TEST ORDERABLE S Performing Organization Address City/[facility]/[place] [address] (ABNORMAL) POCT Glucose (12/09/2021 6:32 PM EDT) athologist Signature POC Glucose 356 (H) 65 - 199 [facility] mg/dL [facility] Comment: Supplemental ranges: <140 mg/dL before meals <180 mg/dL all other times of the day Specimen Anatomical Collection Method Collection Time Receive d Time (Source) Location / / Volume Laterality Blood 12/09/2021 6:32 PM 2 6:32 EDT PM EDT Iker Cuevas MD POINT OF CARE TEST ORDERABLE S Performing Organization Address City/State/[place] [address] (ABNORMAL) POCT Glucose (12/09/2021 4:19 PM EDT) athologist Signature POC Glucose 347 (H) 65 - 199 [place] mg/dL [facility] LAB[facility] Comment: Supplemental ranges: <140 mg/dL before meals <180 mg/dL all other times of the day Specimen Anatomical Collection Method Collection Time Receive d Time (Source) Location / / Volume Laterality Blood 12/09/2021 4:19 PM 2 4:19 EDT PM EDT Iker Cuevas MD POINT OF CARE TEST ORDERABLE S Performing Organization Address City/State/[place] [address] Heparin (unfractionated) Level (12/09/2021 1:29 PM EDT) athologist Signature Heparin UFH 0.42 IU/mL [facility] LABORATORY [...] Cuevas MD HEMATOLOGY ORDERABLES Performing Organization Address City/[facility]/[place] [address] (ABNORMAL) POCT Glucose (12/09/2021 12:02 PM EDT) athologist Signature POC Glucose 235 (H) 65 - 199 [facility] mg/dL [facility] Comment: Supplemental ranges: <140 mg/dL before meals <180 mg/dL all other times of the day Specimen Anatomical Collection Method Collection Time Receive d Time (Source) Location / / Volume Laterality Blood 12/09/2021 12:02 12/09/2021 PM EDT 12:02 PM EDT Iker Cuevas MD POINT OF CARE TEST ORDERABLE S Performing Organization Address City/State/[place] [address] (ABNORMAL) POCT Glucose (12/09/2021 9:44 AM EDT) P athologist Signature POC Glucose 214 (H) 65 - 199 [facility] mg/dL [facility] Comment: Supplemental ranges: <140 mg/dL before meals <180 mg/dL all other times of the day Specimen Anatomical Collection Method Collection Time Receive d Time (Source) Location / / Volume Laterality Blood 12/09/2021 9:44 AM 9:44 EDT AM EDT Iker Cuevas MD POINT OF CARE TEST ORDERABLE S Performing Organization Address City/[facility]/[place] [address] EKG 12 Lead (12/09/2021 7:57 AM EDT) Component Value Ref Range Test Analysis Performed Pathologis t Method Time At Signature Ventricular rate 101 BPM MUSE SYSTEM Atrial Rate 101 BPM MUSE SYSTEM P-R Interval 150 ms MUSE SYSTEM QRS Duration 112 ms MUSE SYSTEM Q-T Interval 364 ms MUSE SYSTEM QTC Calculated 471 ms MUSE SYSTEM (Bezet) Calculated P [place] 59 degrees MUSE SYSTEM Calculated R [place] -42 degrees MUSE SYSTEM Calculated T [place] 102 degrees MUSE SYSTEM INTERPRETATION Sinus tachycardia Occasional Premature ventricular com plexes MUSE SYSTEM Left axis deviation 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) Abnormal ECG When compared with ECG of 08-DEC-2021 16:40, Premature ventricular complexes are now Present Confirmed by MD Jim, Yoon ([id number]) on 12/10/2021 4:55:06 PM Specimen Anatomical Collection Method Collection Time Receive d Time (Source) Location / / Volume Laterality 12/09/2021 7:57 AM 4:55 EDT PM EDT Iker Cuevas MD ECG ORDERABLES Performing Organization Address City/State/ZIP Code Phon e Number MUSE SYSTEM (ABNORMAL) POCT Glucose (12/09/2021 7:28 AM EDT) P athologist Signature POC Glucose 263 (H) 65 - 199 [facility] mg/dL [facility] LAB[facility] Comment: Supplemental ranges: <140 mg/dL before meals <180 mg/dL all other times of the day Specimen Anatomical Collection Method Collection Time Receive d Time (Source) Location / / Volume Laterality Blood 12/09/2021 7:28 AM 7:28 EDT AM EDT Iker Cuevas MD POINT OF CARE TEST ORDERABLE S Performing Organization Address City/State/[place] [address] (ABNORMAL) Hemoglobin A1c (12/09/2021 6:18 AM EDT) Analysis Performed At Patho logist Time Signature Hemoglobin A1C 7.4 (H) 4.3 - 5.6 [facility] LABORATORY Comment: Reference Range: 4.3 [...] with hemoglobinopathies. Additional resources are available on [facility] ADA website. Macario HAMMOND, Ruthann J, Deysi R, et al. ??Tr anslating the A1C assay into estimated average glucose values. ??Diabetes Care 2008:31(8):6485-0041. Specimen Anatomical Collection Method Collection Time Receive d Time (Source) Location / / Volume Laterality Blood Venous Draw / 12/09/2021 6:18 AM 12/10/19 22 Unknown EDT 12:24 PM EDT Resulting Agency Comment Spec In Lab Migdalia BROWN CHEMISTRY ORDERABLES Performing Organization Address City/State/[place] [address] (ABNORMAL) Prothrombin Time (12/09/2021 6:18 AM EDT) P athologist Signature PT 26.6 (H) 9.4 - 12.5 [facility] LABORATORY INR 2.3 [facility] LABORATORY Comment: An INR [...] Organization Address City/State/[place] [address] Heparin (unfractionated) Level (12/09/2021 6:18 AM EDT) P athologist Signature Heparin UFH 0.24 IU/mL [facility] LABORATORY [...] Organization Address City/State/[place] [address] (ABNORMAL) Differential, Automated (12/09/2021 6:18 AM EDT) Patholo gist Method Time Signature Neutrophils % 91.5 % [facility] LABORATORY Neutr Abs (ANC) 15.78 (H) 1.70 - [facility] 6.10 [facility] x10(3)/[facility] LABORATORY Lymphocytes % 2.9 % [facility] LABORATORY Lymphocytes Abs 0.5 (L) 0.9 - 3.2 [facility] x10(3)/[facility] LABORATORY Monocytes % 4.9 % [facility] LABORATORY Monocyte Abs 0.8 0.3 - 0.9 [facility] x10(3)/[facility] LABORATORY Eosinophils % 0.0 % [facility] LABORATORY Eosinophils Abs 0.0 0.0 - 0.4 [facility] x10(3)/[facility] LABORATORY Basophils % 0.2 % [facility] LABORATORY Basophils Abs 0.0 0.0 - 0.1 [facility] x10(3)/[facility] LABORATORY Immature Gran % 0.50 % [facility] [...] Abs 0.09 (H) 0.00 - 0.04 x10(3)/[facility] LABORATORY Specimen Anatomical Collection Method Collection Time Receive d Time (Source) Location / / Volume Laterality Blood 12/09/2021 6:18 AM 6:33 EDT AM EDT Resulting Agency Comment Spec In Lab Morgan BROWN HEMATOLOGY ORDERABLES Performing Organization Address City/State/[place] [address] (ABNORMAL) Hemogram (12/09/2021 6:18 AM EDT) Analysis Performed At Patho logist Time Signature WBC 17.2 (H) 4.0 - 9.5 [facility] x10(3)/[facility] LABORATORY RBC 4.32 (L) 4.58 - [facility] [address].54 [facility] x10(6)/[facility] LABORATORY Hemoglobin 12.6 (L) 13.7 - [facility] 16.5 g/dL [facility] Hematocrit 38.9 (L) 40.5 - [facility] 48.5 % [facility] MCV 90.0 82.9 - [facility] 93.[address] [facility] MCH 29.2 27.5 - [facility] 32.[address] [facility] MCHC 32.4 32.0 - [place] 35.7 g/dL [facility] LAB[facility] Platelets 193 145 - 357 [facility] LABORATORY RDWSD 50.4 (H) 36.0 - [facility] 45.0 [facility] LABORATORY RDWCV 15.2 (H) 11.4 - [facility] 13.8 % [facility] LAB[facility]ORY MPV 9.5 7.6 - 12.9 [facility] LABORATORY nRBC % Auto 0.0 % [facility] LABORATORY nRBC Abs Auto 0.000 0.000 - [facility] 0.[address] [facility] x10(3)/[facility] LABORATORY Specimen Anatomical Collection Method Collection Time Receive d Time (Source) Location / / Volume Laterality Blood 12/09/2021 6:18 AM 6:33 EDT AM EDT Resulting Agency Comment Spec In Lab Morgan BROWN HEMATOLOGY ORDERABLES Performing Organization Address City/State/[place] [address] Lipid Panel (Reflex Direct LDL) (12/09/2021 6:18 AM EDT) P athologist Signature Chol, Total 105 mg/dL [facility] LABORATORY Comment: Lower Risk: <200 mg/dL Average Risk: 200-239 mg/dL Higher Risk: >be=124 mg/dL Triglycerides 133 mg/dL [facility] LABORATORY Comment: Average Risk/Lower Risk: <150 mg/dL Borderline High Risk: 150-199 mg/dL High Risk: 200-499 mg/dL Very High Risk: >oe=291 mg/dL HDL 42 mg/dL [facility] LABORATORY Comment: Males: ?? Higher Risk: <40 mg/dL Females: ?? Higher Risk: <50 mg/dL LDL Cholesterol 36 mg/dL [facility] Comment: Lowest Risk: <100 mg/dL Lower Risk: 100-129 mg/dL Borderline High Risk: 130-159 mg/dL High Risk: 160-189 mg/dL Very High Risk: >mr=579 mg/dL Chol/HDL Ratio 2.5 ratio [facility] LABORATORY Lipid Interpretation See Note [facility] Comment: Lipid management should be guided by a p atient? s ASCVD risk, goals and preferences. ACC/AHA Guidelines recommend high intens ity statin if clinical ASCVD or LDL greater than or equal to 190 mg/dL. [email or web address]/[email or web address] Adults aged 40-75 with LDL 70-189 mg/dL should have their 10 year ASCVD risk estimated with the ACC/AHA ASCVD risk es timator http://tools.acc.org/HRIGM-Ayoi-Jwivmrzg r/ Statin should be discussed if risk [...] Organization Address City/State/[place] [address] TSH (12/09/2021 6:18 AM EDT) athologist Signature TSH 1.60 0.27 - 4.20 [facility] mcIU/mL [facility] Comment: Reference Interval (mcIU/mL): Females: ??First Trimester: 0.23-3.88 ??Second Trimester: 0.22-3.90 ??Third Trimester: 0.44-4.66 Specimen Anatomical Collection Method Collection Time Receive d Time (Source) Location / / Volume Laterality Blood 12/09/2021 6:18 AM 2 6:33 EDT AM EDT Resulting Agency Comment Spec In Lab Iker Cuevas MD CHEMISTRY ORDERABLES Performing Organization Address City/State/[place] [address] Hepatic Function Panel (12/09/2021 6:18 AM EDT) athologist Signature Total Protein 7.3 6.1 - 8.0 [facility] g/dL [facility] Albumin 4.2 3.2 - 5.2 [facility] g/dL [facility] AST 25 0 - 39 [facility] unit/L [facility] ALT 15 0 - 55 [facility] unit/L [facility] Alk Phos 75 40 - 130 [place] unit/L [facility] Total 1.1 0.2 - 1.3 [facility] Bilirubin mg/dL [facility] Bili, Direct 0.2 0.0 - 0.3 [facility] mg/dL [facility] LAB[facility]ORY Specimen Anatomical Collection Method Collection Time Receive d Time (Source) Location / / Volume Laterality Blood 12/09/2021 6:18 AM 2 6:33 EDT AM EDT Resulting Agency Comment Spec In Lab Iker Cuevas MD CHEMISTRY ORDERABLES Performing Organization Address City/[facility]/ZIP Code Phon e Number [address] (ABNORMAL) BMP w/fasting Glucose (12/09/2021 6:18 AM EDT) athologist Signature Glucose 235 (H) 65 - 99 [facility] Fasting mg/dL [facility] Comment: ?Fasting* Glucose Interpretive C [...] of Diabetes Mellitus, Position Statement from the [place] [employer]. ??Diabete s Care, Volume 33, Supplement 1, Jul 2009 BUN 49 (H) 10 - 20 mg/dL [facility] LABORATORY Creatinine 1.33 0.80 - 1.50 mg/dL [facility] LABORATORY Sodium 139 135 - 145 mmol/L [facility] [...] estions. Chloride 101 98 - 107 mmol/L [facility]OR[facility]ORY CO2 21 (L) 22 - 31 mmol/L [facility] Anion Gap 17 (H) 5 - 15 mmol/L [facility] LABORATORY Calcium 8.8 8.5 - 10.5 mg/dL [facility] LABORATORY Estimated GFR 52 (L) >=60 mL/min/1.73 m?? [facility] [...] Organization Address City/State/[place] [address] [facility] [address] Magnesium (12/09/2021 6:18 AM EDT) athologist Signature Magnesium 0.81 0.69 - 1.07 [facility] mmol/L [facility] LAB[facility]ORY Specimen Anatomical Collection Method Collection Time Receive d Time (Source) Location / / Volume Laterality Blood 12/09/2021 6:18 AM 2 6:33 EDT AM EDT Resulting Agency Comment Spec In Lab Iker Cuevas MD CHEMISTRY ORDERABLES Performing Organization Address City/State/[place] [address] [facility] LAB[address] Drive (ABNORMAL) Troponin (12/09/2021 6:18 AM EDT) athologist Signature Troponin-T 1.13 (H) 0.00 - [facility] 0.00 ng/mL [facility] Comment: The 99th percentile for [...] additional sample may be indicated. Reference: Third [place] Definition of Myocardial Infarction. Journal of the [place] [employer] 2012;60:1581-98 Specimen Anatomical Collection Method Collection Time Receive d Time (Source) Location / / Volume Laterality Blood 12/09/2021 6:18 AM 2 6:33 EDT AM EDT Resulting Agency Comment Spec In Lab Iker Cuevas MD CHEMISTRY ORDERABLES Performing Organization Address City/State/ZIP Code Phon e Number [place] [id number] LAB[address] XR Chest One View [...] who have questions please contact the health small animal caretaker that requested your imaging first. ? [...] ho have questions please contact the health small animal caretaker that requested your imaging first. Electronically signed by: Yoselin White, [facility] ([phone]), at 12/09/2021 5:35 AM Amber Sanches MD IMG DX ORDERABLES (ABNORMAL) BLOOD GAS 2 ARTERIAL (12/09/2021 5:14 AM EDT) Analysis Performed At Patho logist Time Signature pH Art 7.43 7.35 - [facility] [address] [facility] LABORATORY pCO2 Art 36 35 - 45 [facility] mmHg [facility] LAB[facility]ORY pO2 Art 67 (L) 85 - 104 [facility] mmHg [facility]ORY HCO3 Art 23.4 20.0 - [facility] 26.0 [facility] mmol/L HOSPITAL LABORATORY BE Art -0.9 -3.0 - 3.0 [facility] mmol/L [facility]ORY Hgb Blood Gas 13.2 (L) 13.7 - [facility] 16.5 g/dL [facility] LAB[facility] O2HB Art 91.3 (L) 94.0 - [facility] 97.0 % [facility] COHB Art 0.4 % [facility] Comment: Nonsmokers: 0.5-1.5% COHB Smokers: Variable, but usually less than 10% Toxic: 20-30% COHB Lethal: Greater than 60% COHB METHB Art 0.4 <=1.5 % [facility] LABORATORY Na Whole Blood 138 135 [...] [facility]ICAL [facility]ENTER LABORATORY FIO2 Art 35 % [facility]OR[facility] Flow Art 8.0 LPM [facility] LABORAT[facility] PF Ratio Art 191 [facility] LABORATORY Specimen Anatomical Collection Method Collection Time Receive d Time (Source) Location / / Volume Laterality Blood 12/09/2021 5:14 AM 2 5:14 EDT AM EDT Iker Cuevas MD CHEMISTRY ORDERABLES Performing Organization Address City/State/[place] [address] POCT Glucose (12/09/2021 4:46 AM EDT) P athologist Signature POC Glucose 198 65 - 199 [facility] mg/dL [facility] Comment: Supplemental ranges: <140 mg/dL before meals <180 mg/dL all other times of the day Specimen Anatomical Collection Method Collection Time Receive d Time (Source) Location / / Volume Laterality Blood 12/09/2021 4:46 AM 2 4:46 EDT AM EDT Iker Cuevas MD POINT OF CARE TEST ORDERABLE S Performing Organization Address City/State/[place] [address] (ABNORMAL) POCT Glucose (12/09/2021 3:01 AM EDT) athologist Signature POC Glucose 225 (H) 65 - 199 [facility] Comment: Supplemental ranges: <140 mg/dL before meals <180 mg/dL all other times of the day Specimen Anatomical Collection Method Collection Time Receive d Time (Source) Location / / Volume Laterality Blood 12/09/2021 3:01 AM 3:01 EDT AM EDT Iker Cuevas MD POINT OF CARE TEST ORDERABLE S Performing Organization Address City/State/[place] [address] (ABNORMAL) POCT Glucose (12/08/2021 10:55 PM EDT) athologist Signature POC Glucose 327 (H) 65 - 199 [facility] mg/dL [facility] Comment: Supplemental ranges: <140 mg/dL before meals <180 mg/dL all other times of the day Specimen Anatomical Collection Method Collection Time Receive d Time (Source) Location / / Volume Laterality Blood 12/08/2021 10:55 12/08/2021 PM EDT 10:55 PM EDT Iker Cuevas MD POINT OF CARE TEST ORDERABLE S Performing Organization Address City/State/[place] [address] Heparin (unfractionated) Level (12/08/2021 10:03 PM EDT) athologist Signature Heparin UFH 0.18 IU/mL [facility] LABORATORY [...] Organization Address City/State/[place] [address] (ABNORMAL) Troponin (12/08/2021 10:03 PM EDT) athologist Signature Troponin-T 0.92 (H) 0.00 - [facility] 0.00 ng/mL [facility] Comment: The 99th percentile for [...] additional sample may be indicated. Reference: Third [place] Definition of Myocardial Infarction. Journal of the [place] [employer] 2012;60:1581-98 Specimen Anatomical Collection Method Collection Time Receive d Time (Source) Location / / Volume Laterality Blood 12/08/2021 10:03 12/08/2021 PM EDT 10:31 PM EDT Resulting Agency Comment Spec In Lab Iker Cuevas MD CHEMISTRY ORDERABLES Performing Organization Address City/[facility]/ZIP Code Phon e Number [address] (ABNORMAL) POCT Glucose (12/08/2021 8:22 PM EDT) P athologist Signature POC Glucose 429 (H) 65 - 199 [facility] mg/dL [facility] Comment: Supplemental ranges: <140 mg/dL before meals <180 mg/dL all other times of the day Specimen Anatomical Collection Method Collection Time Receive d Time (Source) Location / / Volume Laterality Blood 12/08/2021 8:22 PM 2 8:22 EDT PM EDT Iker Cuevas MD POINT OF CARE TEST ORDERABLE S Performing Organization Address City/[facility]/[place] [address] (ABNORMAL) POCT Glucose (12/08/2021 7:06 PM EDT) P athologist Signature POC Glucose 442 (H) 65 - 199 [facility] mg/dL [facility] Comment: Supplemental ranges: <140 mg/dL before meals <180 mg/dL all other times of the day Specimen Anatomical Collection Method Collection Time Receive d Time (Source) Location / / Volume Laterality Blood 12/08/2021 7:06 PM 2 7:06 EDT PM EDT Iker Cuevas MD POINT OF CARE TEST ORDERABLE S Performing Organization Address City/[facility]/ZIP Code Phon e Number [address] Magnesium (12/08/2021 6:02 PM EDT) P athologist Signature Magnesium 0.86 0.69 - 1.07 [facility] mmol/L [facility]ORY Specimen Anatomical Collection Method Collection Time Receive d Time (Source) Location / / Volume Laterality Blood 12/08/2021 6:02 PM 2 6:36 EDT PM EDT Resulting Agency Comment Spec In Lab Iker Cuevas MD CHEMISTRY ORDERABLES Performing Organization Address City/State/[place] [address] (ABNORMAL) Basic Metabolic Panel (non-fasting) (12/08/2021 6:02 PM EDT) P athologist Signature Glucose Lvl 392 (H) 65 - 199 [facility] mg/dL [facility] LABORATORY [...] 107 mmol/L [facility] CO2 20 (L) 22 - 31 mmol/L [facility] LABORATORY Anion Gap 16 (H) 5 - 15 mmol/L [facility] LABORATORY Calcium 8.6 8.5 - 10.5 mg/dL [facility] LABOR[facility]ORY Estimated GFR 47 (L) >=60 [...] Organization Address City/State/[place] [address] (ABNORMAL) Differential, Automated (12/08/2021 6:02 PM EDT) [facility] gist Method Time Signature Neutrophils % 89.5 % [facility]OR[facility]ORY Neutr Abs (ANC) 13.97 (H) 1.70 - [facility] 6.10 [facility] x10(3)/[facility] LABORATORY Lymphocytes % 3.7 % [facility] Lymphocytes Abs 0.6 (L) 0.9 - 3.2 [facility] x10(3)/[facility] LABORATORY Monocytes % 6.1 % [facility] Monocyte Abs 1.0 (H) 0.3 - 0.9 [facility] x10(3)/[facility] LABORATORY Eosinophils % 0.0 % [facility] Eosinophils Abs 0.0 0.0 - 0.4 [facility] x10(3)/[facility] LABORATORY Basophils % 0.2 % [facility] Basophils Abs 0.0 0.0 - 0.1 [facility] x10(3)/[facility] LABORATORY Immature Gran % 0.50 % [facility] [...] Organization Address City/State/[place] [address] (ABNORMAL) Hemogram (12/08/2021 6:02 PM EDT) Analysis Performed At Patho logist Time Signature WBC 15.6 (H) 4.0 - 9.5 [facility] x[facility] LABORATORY RBC 4.05 (L) 4.58 - [facility] [address] [facility] x10(6)/[facility] LABORATORY Hemoglobin 11.8 (L) 13.7 - [facility] 16.5 g/dL [facility] Hematocrit 35.8 (L) 40.5 - [facility] 48.5 % [facility] MCV 88.4 82.9 - [facility] 93.1 [facility] LABORATORY MCH 29.1 27.5 - [place] [facility] 32.[address] [facility] LAB[facility]AT[facility] MCHC 33.0 32.0 - [facility] 35.7 g/dL [facility] Platelets 178 145 - 357 [facility] x10(3)/[facility] LABORATORY RDWSD 49.3 (H) 36.0 - [facility] 45.0 [facility] LABORATORY RDWCV 15.1 (H) 11.4 - [facility] 13.8 % [facility] MPV 10.4 7.6 - 12.9 [facility] nRBC % Auto 0.0 % [facility] nRBC Abs Auto 0.000 0.000 - [facility] [address] [facility] x10(3)/[facility] LABORATORY Specimen Anatomical Collection Method Collection Time Receive d Time (Source) Location / / Volume Laterality Blood 12/08/2021 6:02 PM 2 6:36 EDT PM EDT Resulting Agency Comment Spec In Lab Morgan BROWN HEMATOLOGY ORDERABLES Performing Organization Address City/State/ZIP Code Phon e Number [place] [id number] (ABNORMAL) Troponin (12/08/2021 6:02 PM EDT) P athologist Signature Troponin-T 0.89 (H) 0.00 - [place] 0.00 ng/mL [facility] Comment: The 99th percentile for [...] additional sample may be indicated. Reference: Third [place] Definition of Myocardial Infarction. Journal of the [place] [employer] 2012;60:1581-98 Specimen Anatomical Collection Method Collection Time Receive d Time (Source) Location / / Volume Laterality Blood 12/08/2021 6:02 PM 2 6:36 EDT PM EDT Resulting Agency Comment Spec In Lab Iker Cuevas MD CHEMISTRY ORDERABLES Performing Organization Address City/State/ZIP Code Phon e Number [place] [phone] COVID-19 PCR (12/08/2021 5:00 PM EDT) Patholo gist Method Time Signature SARS-CoV-2 Not Detected Not Detected [place] RNA PCR [facility] LABORATORY Comment: This result [...] using the Simplexa COVID-19 Direct Assay by Covocativejoi marcum as authorized by the FDA issued [...] Department of Pathology and Laboratory Medicine at [facility], certified under the Clinical Laboratory [...] fact sheets at the following FDA website: https://www.fda.gov/medical-devices/peykxvvriyu-nivybka-9525-mixbn-13-urvfftczz- lrl-vefraqmrrpqbxq-jshzlyb-devices/terom-aeyeudqevtz-mbkm SARS-CoV-2 Source ECONOMICS INSTRUCTOR Swab [facility] LABORATORY Specimen (Source) Anatomical Collection Method Collection Time Re ceived Time Location / / Volume Laterality Nasopharyngeal Swab 12/08/2021 5:00 12/08 PM EDT 6:03 PM EDT Comment: Symptoms->Surveillance Resulting Agency Comment Spec In Lab Iker Cuevas MD MICROBIOLOGY - GENERAL ORDER [place] Performing Organization Address City/State/[place] [address] EKG 12 Lead (12/08/2021 4:40 PM EDT) Component Value Ref Range Test Analysis Performed Pathologis t Method Time At Signature Ventricular rate 78 BPM MUSE SYSTEM Atrial Rate 78 BPM MUSE SYSTEM P-R Interval 152 ms MUSE SYSTEM QRS Duration 96 ms MUSE SYSTEM Q-T Interval 396 ms MUSE SYSTEM QTC Calculated 451 ms MUSE SYSTEM (Bezet) Calculated P [place] 44 degrees MUSE SYSTEM Calculated R [place] -31 degrees MUSE SYSTEM Calculated T [place] 124 degrees MUSE SYSTEM INTERPRETATION Normal sinus [...] POC Glucose 400 (H) 65 - 199 [facility] mg/dL [facility] Comment: Supplemental ranges: <140 mg/dL before meals <180 mg/dL all other times of the day Specimen Anatomical Collection Method Collection Time Receive d Time (Source) Location / / Volume Laterality Blood 12/08/2021 4:34 PM 2 4:34 EDT PM EDT Iker Cuevas MD POINT OF CARE TEST ORDERABLE S Performing Organization Address City/State/[place] [address] documented in this encounter [...] Coronary atherosclerosis of unspecified type of vessel, [place] or graft Cardiomyopathy, ischemic Other specified forms [...] dose (after last modification) on [facility] 12/11/21 at 1730, Until Discontinued, MEAL ASSOCIATED Give 1 unit: 3 grams of carbohydrate Hold if not eating or if BG less than 70 mg/dL., Routine Given 12/11/2021 5:16 PM EDT 10 Units insulin lispro (HumaLOG;Admelog) (100 Given 12/09/2021 1:24 PM E DT 3 Units unit/mL) subcutaneous injection vial 0-8 Units 0-8 Units, Subcutaneous, 3 TIMES DAILY WITH MEALS, First dose on [facility] 12/08/21 at 1730, Until Discontinued, [...] - Reason: Transfer to a Procedural area)1230 ([facility] Unhold - Provider: Admin Adt)1746 (Given - [...] 12/12/2021 acetaminophen (Tylenol) tablet 650 mg 0805 ([facility] Hold - Provider: Admin Adt - Reason: Transfer to a Procedural area)1230 ([facility] Unhold - Provider: Admin Adt) 650 mg, Oral, EVERY 4 HOURS PRN, Startin g on Wed12/08/21 at 1639, Until Wed12/12/21 at 1312, Pain, Headaches, Maximum dose of acetaminophen is 4000 mg from all sources in 24 hours. When ordered for pain , acetaminophen should be given even whe n other ordered pain medications are indicated. , Routine bisacodyL (Dulcolax) suppository 10 mg 0805 ([facility] Hold - Provider: Admin Adt - Reason: Transfer to a Procedural area)1230 ([facility] Unhold - Provider: Admin Adt) 10 mg, [...] (Intra-Procedure), Routine niCARdipine (Cardene) (100 mcg/mL) dilution (BRIM POUNCER MACHINE OPERATOR) (CANCELED) 1030 (Given - Provider: Vitaliy [...] - Reason: Transfer to a Procedural area)1230 ([facility] Unhold - Provider: Admin Adt) 5-20 mL, [...] episode. & nbsp; For persistent hypoglycemia, con street supervisor longer-acting treatment for the duration of the [...]
Routine documented in this encounter Care Teams Base Manager Relationship Specialty Start Date End Date Lovely Vicente MD PCP - General 04/16/[address] [place] [address] [address] [place] [address] documented as of this encounter
--- OUTSIDE RECORDS SUMMARY | 2022-03-04 14:49 | XMS_ITS | Encounter Summary ---
:1945 Author Organization [facility] [place] [address] Care Team Providers Name Role Phone Lovely Vicente MD Primary Care Provider Reason for Visit Reason Onset Date Comments Advice Only 01/28/2022 Encounter Details Date Type Department Care Team Description 01/28/2022 Telephone Cardiology at [facility] Chitra Angela, voice data communications [place] [phone] Social History Tobacco Use Types Packs/Day [...] Fatima assists patient with medications. Number for director labor standards scheduling given and she will call them to verify this information Meds reviewed. As per our form from director labor standards Eliquis hold for 48 hours prior. Pt [...] Nobles MD [facility] [address] [place], [place] [address] (Wo rk) 06/10/2022 Office Visit Dermatology Laura Scherer MD [facility] [address] [place], [place] [address] (Wo rk) documented as of this encounter Visit Diagnoses Not on filedocumented in this encounter Care Teams Wealth Management Advisor Relationship Specialty Start Date End Date Lovely Vicente MD PCP - General 04/16/[address] [place] [address] documented as of this encounter
--- OUTSIDE RECORDS SUMMARY | 2022-03-04 14:49 | XMS_ITS | Encounter Summary ---
:1945 Author Organization [facility] [place] [address] Care Team Providers Name Role Phone Lovely Vicente MD Primary Care Provider Encounter Details Date Type Department Care Team Description 12/12/[address] [facility] [place] [phone] Social History Tobacco Use Types Packs/Day [...] - 12/12/2021 11:36 AM EDT RTC to [facility] regarding pharmacists questions as to whether the [...] [facility] [address] [place], [place] [address] (Wo rk) 06/10/2022 Office Visit Dermatology Laura Scherer MD [facility] [address] [place], [place] [address] (Wo rk) documented as of this encounter Visit Diagnoses Not on filedocumented in this encounter Care Teams Returned Goods Sorter Relationship Specialty Start Date End Date Lovely Vicente MD PCP - General 04/16/[address] [place] [address] documented as of this encounter
--- OUTSIDE RECORDS SUMMARY | 2022-03-04 14:49 | XMS_ITS | Encounter Summary ---
:1945 Author Organization [facility] Address [place] [address] Care Team Providers Name Role Phone Lovely Vicente MD Primary Care Provider Reason for Visit Auth/Cert Specialty Diagnoses / Procedures Referred By Contact Refer red To Contact Diagnoses ASCVD (arteriosclerotic cardiovascular disease) [I25.10] Vitaliy Nobles MD [facility] Procedures PRO PERC TRLUML CORONARY STENT W/ANGIO ONE ART/BRANCH CARDIAC CATHETERIZATION STENT PLACEMENT-SINGLE MAJOR CORONARY ARTERY OR BRANCH [facility] [place] [address] Referral ID Status Reason Start Date Expiration Date Visits Requ ested Visits Authorized [id number] 1 1 Encounter Details Date Type Department Care Team Description 01/30/2022 Hospital Encounter Short Stay Unit at Vitaliy Nobles, CVD (arteriosclerotic cardiovascular disease); Barbara Blue MD 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 Please follow up with your ict business analyst in the next 4-6 weeks. We have made a referral to cardiac rehab. Please see the attached instructions regarding care to your right wrist access site. AttachmentsThe following attachments cannot be sent through Care Everywhere. Coronary Angiogram: Post-op (Mongolian)documented in this encounter Medications at Time of [...] Murray RN - 01/30/2022 4:54 PM EDT [facility] Short Stay Unit Discharge Note All relevant [...] documented in this encounter H&P Notes Eddi Elizabteh Jr., MD - 01/30/2022 7:42 AM EDT [...] SSU team Don has history of prior NM and CABG. I had referred him to cardiac rehab at [facility] last month per HF team. He was waiting until this intervention before starting the program. Reviewed managing angina /use of sl nitroglycerin. Given parameters for home exercise. 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 We discussed short walks several times per day. Will send [facility] his discharge summary from this admission. The patient should be contacted by the Program within 1- 2 weeks from discharge. Brief Op Note - Vitaliy Nobles MD - 01/30/2022 10:19 AM EDT Images from the original note were not included. [facility] [place] [address] CORONARY ANGIOGRAM AND PERCUTANEOUS CORONARY INTERVENTION REPORT Patient: Don Fatima : 1945 MR number: [id number] Date of Service: 01/30/2022 Lead Miner: Vitaliy Nobles MD Fellow: KEYON Elizabeth INDICATION: [...] a long 2.0 x 26 mm ORION Baxter TUCKER stent and positioned it at the [...] using a 2.0 x 26 mm ORION Baxter TUCKER stent. This completes the revascularization ofall [...] Vitaliy Nobles MD [facility] [address] [place], [place] [address] ( rk) 06/10/2022 Office Visit Dermatology Laura Scherer MD [facility] DR TEJA GR-DERMAT [place], [place] [address] (Wo rk) Scheduled Orders Name [...] P athologist Signature Neutrophils % 71.8 % [facility] Neutr Abs (ANC) 3.96 1.70 - [facility] 6.10 [facility] x10(3)/[facility] LABORATORY Lymphocytes % 16.3 % [facility] Lymphocytes Abs 0.9 0.9 - 3.2 [facility] x10(3)/[facility] LABORATORY Monocytes % 10.0 % [facility] Monocyte Abs 0.6 0.3 - 0.9 [facility] x10(3)/[facility] LABORATORY Eosinophils % 0.5 % [facility] Eosinophils Abs 0.0 0.0 - 0.4 [facility] x10(3)/[facility] LABORATORY Basophils % 0.5 % [facility] Basophils Abs 0.0 0.0 - 0.1 [facility] x10(3)/[facility] LABORATORY Immature Gran % 0.90 % [facility] Comment: Immature granulocytes(IG's)percentage an d absolute count will include metamyelocytes, myelocytes, and promyelo cytes. Blood smears from CBCs yielding IG's will be scanned manually for concor dance. If this scan disagrees with the automated IG or if promyelocytes are not ed, a manual differential will be performed. Melisa Gran Abs 0.05 (H) 0.00 - 0.04 x10(3)/[facility] LABORATORY Specimen Anatomical Collection Method Collection Time Receive d Time (Source) Location / / Volume Laterality Blood 01/30/2022 2:12 PM 2 2:37 EDT PM EDT Resulting Agency Comment Spec In Lab Eddi Elizabeth Jr., MD HEMATOLOGY ORDERABLES Performing Organization Address City/State/ZIP Code Phon e Number [place] [phone] (ABNORMAL) Hemogram (01/30/2022 2:12 PM EDT) Analysis Performed At Patho logist Time Signature WBC 5.5 4.0 - 9.5 [facility] x10(3)/[facility] LABORATORY RBC 4.30 (L) 4.58 - [facility] 5.54 [facility] x10(6)/[facility] LABORATORY Hemoglobin 12.7 (L) 13.7 - [facility] g/dL [facility] Hematocrit 39.4 (L) 40.5 - [facility] 48.5 % [facility] MCV 91.6 82.9 - [facility] 93.1 fL [facility] MCH 29.5 27.5 - [facility] 32.1 pg [facility] MCHC 32.2 32.0 - [facility] 35.7 g/dL [facility] Platelets 172 145 - 357 [facility] x10(3)/[facility] LABORATORY RDWSD 54.5 (H) 36.0 - [facility] 45.0 [facility] LABORATORY RDWCV 16.4 (H) 11.4 - [facility] 13.8 % [facility] LABORATORY MPV 9.2 7.6 - 12.9 [facility] LABORATORY nRBC % Auto 0.0 % [facility] nRBC Abs Auto 0.000 0.000 - [facility] 0.000 [facility] x10(3)/[facility] LABORATORY Specimen Anatomical Collection Method Collection Time Receive d Time (Source) Location / / Volume Laterality Blood 01/30/2022 2:12 PM 2 2:37 EDT PM EDT Resulting Agency Comment Spec In Lab Eddi Elizabeth Jr., MD HEMATOLOGY ORDERABLES Performing Organization Address City/State/[place] [address] (ABNORMAL) Basic Metabolic Panel (non-fasting) (01/30/2022 2:12 PM EDT) athologist Signature Glucose Lvl 163 65 - 199 [facility] mg/dL [facility] Comment: Diabetes: >=200 mg/dL plus symp toms BUN 30 (H) 10 - 20 mg/dL [facility] Creatinine 1.47 0.80 - 1.50 mg/dL [facility] [...] Nobles MD CHEMISTRY ORDERABLES Performing Organization Address City/[facility]/ZIP Code Phon e Number [address] POCT Glucose (01/30/2022 1:41 PM EDT) athologist Signature POC Glucose 148 65 - 199 [facility] mg/dL [facility] Comment: Supplemental ranges: <140 mg/dL before meals <180 mg/dL all other times of the day Specimen Anatomical Collection Method Collection Time Receive d Time (Source) Location / / Volume Laterality Blood 01/30/2022 1:41 PM 2 1:41 EDT PM EDT Vitaliy Nobles MD POINT OF CARE TEST ORDERABLE S Performing Organization Address City/[facility]/ZIP Code Phon e Number [address] POCT Glucose (01/30/2022 10:48 AM EDT) athologist Signature POC Glucose 193 65 - 199 [facility] mg/dL [facility] Comment: Supplemental ranges: <140 mg/dL before meals <180 mg/dL all other times of the day Specimen Anatomical Collection Method Collection Time Receive d Time (Source) Location / / Volume Laterality Blood 01/30/2022 10:48 01/30/2022 AM EDT 10:48 AM EDT Vitaliy Sandra Nobles MD POINT OF CARE TEST ORDERABLE S Performing Organization Address City/State/[place] [address] EKG 12 Lead (01/30/2022 10:33 AM EDT) Component Value Ref Range Test Analysis Performed Pathologis t Method Time At Signature Ventricular rate 64 BPM MUSE SYSTEM Atrial Rate 64 BPM MUSE SYSTEM P-R Interval 162 ms MUSE SYSTEM QRS Duration 94 ms MUSE SYSTEM Q-T Interval 422 ms MUSE SYSTEM QTC Calculated 435 ms MUSE SYSTEM (Bezet) Calculated P [place] 41 degrees MUSE SYSTEM Calculated R [place] -27 degrees MUSE SYSTEM Calculated T [place] 104 degrees MUSE SYSTEM INTERPRETATION Normal sinus rhythm MUSE SYSTEM Anterolateral infarct (cited on or before 09-DEC-2021) Abnormal ECG When compared with ECG of 10-DEC-2021 11:17, No significant change was found Confirmed by Gary Perez ([id number]) on 01/30/2022 5:57:5 2 PM Specimen Anatomical [...] SYSTEM - 01/30/2022 2:09 PM ED T ?[facility] ? Cardiac Cathete rization/Intervention Report ? Patient Name: Kushal, Don E. ? Procedure Date: 01/30/2022 ? A #: [id number] ? Primary Physician: Nobles, Vitaliy P ? Case #: [id number] ? File Name: [id number] ? Catheterization Order Number: [id number] ? [facility] ? Final Report [place], [place] ? Patient Name: ? Don E. Stewa rt ? ID#: ?[id number] ? : ?1945 ? Procedure Date: ? [...] procedure was Urgent. The indication for ?the pathology lab technician visit is stable kn own [...] the ?procedure: ? Low Molecular Weight Hep alkesandra and Unfractionated Heparin. ? Hemodynamics: ?Left Heart [...] guiding catheter an d a 3.[address] [facility] [place] [address] ??20 Mhz ?using Manual pullback. ??Imagin [...] ?? A premounted 2.00 x 26 mm Valier Baxter (TUKCER) ? was deployed wi a maximum inflation [...] Wedelivered along 2.0 x 26 mm ORION Baxter ? TUCKER stent and p ositioned it [...] dose administered prior to arrival in the pathology lab technician. ?Recommended anti-platelet/anti- thrombotic regimen: ?Continue [...] using validated risk predictors ?(e.g. CHADS2-VASC, HAS-BLED, [place] ECISE DAPT, DAPT Score) ?- ??Keep anticoagulant [...] using a 2.0 x 26 mm ORION Baxter TUCKER stent. ?This completes the revasculariz ation [...] MD CARDIAC CATH ORDERABLES Performing Organization Address City/[facility]/ZIP Code Phon e Number CARDIOMAC SYSTEM (ABNORMAL) POCT Glucose (01/30/2022 9:04 AM EDT) P athologist Signature POC Glucose 212 (H) 65 - 199 [facility] mg/dL [facility] Comment: Supplemental ranges: <140 mg/dL before meals <180 mg/dL all other times of the day Specimen Anatomical Collection Method Collection Time Receive d Time (Source) Location / / Volume Laterality Blood 01/30/2022 9:04 AM 2 9:04 EDT AM EDT Vitaliy Nobles MD POINT OF CARE TEST ORDERABLE S Performing Organization Address [facility] [place] [address] (ABNORMAL) POCT Glucose (01/30/2022 8:10 AM EDT) P athologist Signature POC Glucose 224 (H) 65 - 199 [facility] mg/dL [facility] Comment: Supplemental ranges: <140 mg/dL before meals <180 mg/dL all other times of the day Specimen Anatomical Collection Method Collection Time Receive d Time (Source) Location / / Volume Laterality Blood 01/30/2022 8:10 AM 2 8:10 EDT AM EDT Vitaliy Sandra Nobles MD POINT OF CARE TEST ORDERABLE S Performing Organization Address [facility]/[place] [address] documented in this encounter Visit Diagnoses Diagnosis ASCVD (arteriosclerotic cardiovascular d isease) Unspecified cardiovascular disease 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 ASHD (arteriosclerotic heart disease) Coronary atherosclerosis of unspecified type of vessel, cowlitz or graft ASCVD (arteriosclerotic cardiovascular d isease) Unspecified cardiovascular disease documented in this encounter Admitting Diagnoses Diagnosis CAD (coronary artery disease) Coronary atherosclerosis of unspecified type of vessel, cowlitz or graft documented in this encounter Administered [...] 10 15 (Continued Bag - Provider: Maddison Farmre RN) 50 mL/hr, Intravenous, CONTINUOUS, Start ing [...] Procedure), Routine niCARdipine (Cardene) (100 mcg/mL) dilution (RIB CLOTH KNITTER) (CANCELED ) 0927 (Given - Provider: Vitaliy [...] (Intra-Procedure) documented in this encounter Care Teams Service Delivery Manager Relationship Specialty Start Date End Date Lovely Vicente MD PCP - General 04/16/[address] [place] [address] documented as of this encounter
--- OUTSIDE RECORDS SUMMARY | 2022-03-04 14:49 | XMS_ITS | Encounter Summary ---
:1945 Author Organization [facility] [place] [address] Care Team Providers Name Role Phone Lovely Vicente MD Primary Care Provider Encounter Details Date Type Department Care Team Description 12/15/2021 Telephone Cardiology at [facility] Barbara [place]era, [place] [address] Social History Tobacco Use Types Packs/Day [...] Cardiology Vitaliy Nobles MD [facility] [address] [place], [place] [address] (Wo rk) 06/10/2022 Office Visit Dermatology Laura Scherer MD [facility] [address]DERMAT [facility] [place] [place] [address] (Wo rk) documented as of this encounter Visit Diagnoses Not on filedocumented in this encounter Care Teams Yeast Pusher Relationship Specialty Start Date End Date Lovely Vicente MD PCP - General 04/16/[address] [place] [address] documented as of this encounter
--- OUTSIDE RECORDS SUMMARY | 2022-03-04 14:49 | XMS_ITS | Encounter Summary ---
:1945 [place] [address] Care Team Providers Name Role Phone Lovely Vicente MD Primary Care Provider Encounter Details Date Type Department Care Team Description 12/30/2021 Notes Only Cardiac Rehab [facility] Linnea Deluca, [facility] [place] [address] Social History Tobacco Use Types Packs/Day [...] Failure team. DX: HFrEF. Referral placed to [facility] documented in this encounter Plan of Treatment Upcoming Encounters Date Type Specialty Care Team Description 03/26/2022 Office Visit Cardiology Vitaliy Nobles MD [facility] [address] [place], [place] [address] (Wo rk) 06/10/2022 Office Visit Dermatology Laura Scherer MD [facility] [address] [place], [place] [address] (Wo rk) documented as of this encounter Visit Diagnoses Not on filedocumented in this encounter Care Teams Certified Massage Therapist Relationship Specialty Start Date End Date Lovely Vicente MD PCP - General 04/16/[address] [facility] [address] [place] [address] documented as of this encounter
--- OUTSIDE RECORDS SUMMARY | 2022-03-04 14:49 | XMS_ITS | Encounter Summary ---
:1945 [place] [address] Care Team Providers Name Role Phone Lovely Vicente MD Primary Care Provider Encounter Details Date Type Department Care Team Description 12/24/2021 Orders Only Job Setter Honing Zulma Finch, GERARDVD (art eriosclerotic [facility] cardiovascular disease) [facility] [place] [address] [place], [place] [phone] (Work) [phone] Social History Tobacco Use Types Packs/Day Years [...] MD [facility] [address] [place], [place] [address] (Wo rk) 06/10/2022 Office Visit Dermatology Laura Scherer MD [facility] DR [address] [place], [place] [address] (Wo rk) documented as of this encounter Visit Diagnoses Diagnosis ASCVD (arteriosclerotic cardiovascular d isease) Unspecified cardiovascular disease documented in this encounter Care Teams Tank Stave Assembler Relationship Specialty Start Date End Date Lovely Vicente MD PCP - General 04/16/15 [address] [place] [address] documented as of this encounter
--- OUTSIDE RECORDS SUMMARY | 2022-03-04 14:49 | XMS_ITS | Encounter Summary ---
:1945 Author Organization [facility] [place] [address] Care Team Providers Name Role Phone Lovely Vicente MD Primary Care Provider Encounter Details Date Type Department Care Team Description 12/24/2021 Telephone Public Health at [facility] [place] [address] Social History Tobacco Use Types Packs/Day [...] MD [facility] ER [address] [place], [place] [address] (Wo rk) 06/10/2022 Office Visit Dermatology Laura Scherer MD [facility] [address] [place], [place] [address] (Wo rk) documented as of this encounter Visit Diagnoses Not on filedocumented in this encounter Care Teams Wood Stainer Relationship Specialty Start Date End Date Lovely Vicente MD PCP - General 04/16/[address] [place] [address] documented as of this encounter
--- OUTSIDE RECORDS SUMMARY | 2022-03-04 14:50 | XMS_ITS | Encounter Summary ---
:1945 Author Organization [facility] [place] [address] Care Team Providers Name Role Phone Lovely Vicente MD Primary Care Provider Reason for Visit Reason Onset Date Comments Other 03/24/2019 cardiac clearance ne eded Encounter Details Date Type Department Care Team Description 03/24/2019 Telephone Cardiology at [facility] Danette Maxwell, Other (cardiac [facility] INSURANCE DEFENSE PARALEGAL clearance needed) [place] [address] CARDIOLOGY [place], [place] [address] (Wo rk) Social History Tobacco [...] AM EDT Leonela from [facility] [place] called requesting cardiac clearance for this patient who is to have a colonoscopy on 04/04/19. He is on anticoagulation and they will need to bridge him. Their phone # [phone], fax# [phone]. Thank you. documented in this encounter Plan of Treatment Upcoming Encounters Date Type Specialty Care Team Description 03/26/2022 Office Visit Cardiology Vitaliy Nobles MD [facility] [address] [place], [place] [address] (Wo rk) 06/10/2022 Office Visit Dermatology Laura Scherer MD [facility] [address]DERMAT [place], [place] [address] (Wo rk) documented as of this encounter Visit Diagnoses Not on filedocumented in this encounter Care Teams Vertica Architect Relationship Specialty Start Date End Date Lovely Vicente MD PCP - General 04/16/[address] [place] [address] documented as of this encounter
--- OUTSIDE RECORDS SUMMARY | 2022-03-04 14:50 | XMS_ITS | Encounter Summary ---
:1945 Author Organization [facility] [address] Care Team Providers Name Role Phone Lovely Vicente MD Primary Care Provider Encounter Details Date Type Department Care Team Description 02/19/2020 Telephone Dermatology at [facility] Ariana Wilder LPN [address] [place] [address] Social History Tobacco Use Types Packs/Day [...] Nobles MD [facility] CARDIOLOGY [place], [place] [address] (Wo rk) 06/10/2022 Office Visit Dermatology Laura Scherer MD [facility] [address]-DERMAT [facility] [place] [address] (Wo rk) documented as of this encounter Visit Diagnoses Not on filedocumented in this encounter Care Teams Asphalt Paver Operator Relationship Specialty Start Date End Date Lovely Vicente MD PCP - General 04/16/[address] [place] [address] documented as of this encounter
--- OUTSIDE RECORDS SUMMARY | 2022-03-04 14:50 | XMS_ITS | Encounter Summary ---
:1945 Author Organization [facility] [place] [address] Care Team Providers Name Role Phone Lovely Vicente MD Primary Care Provider Encounter Details Date Type Department Care Team Description 07/28/2019 Office Visit Cardiology at [facility] Danette Maxwell Chronic systolic heart failu re; [facility] A, STACIE ASHD (arteriosclerotic heart disease); Drive [facility] S/P CABG x 3; [place], [place] MARIA VICTORIA (obstructive sleep apnea) on CPAP; [id number] CARDIOLOGY Mixed hyperlipidemia [phone] [place], [place] [address] Social History Tobacco Use Types [...] in this encounter Progress Notes Danette Maxwell, PUSHER RUNNER - 07/28/2019 9:40 AM EST Images from [...] regurgitation present. 07/07/2019 - 07/21/2019 Zio Patch Japanese Tutor The patient had a minimum heart rate [...] K+ 4.5 today 6. Post-op atrial fibrillation [id number] 7 (CHF, HTN, DM, vascular disease, thromboembolism) [...] advised: Refer to EP (Dr. Mcelroy in [place]) 5. Heart Failure Clinic follow up scheduled for: 3 months with proBNP and BMP Danette Maxwell APRN 07/28/2019 documented in this encounter Plan of Treatment Upcoming Encounters Date Type Specialty Care Team Description 03/26/2022 Office Visit Cardiology Vitaliy Nobles MD [facility] ER [address] [place], [place] [address] (Wo rk) 06/10/2022 Office Visit Dermatology Laura Scherer MD [facility] [address] OLOGY [place], [place] [address] (Wo rk) documented as of this encounter Results (ABNORMAL) Basic Metabolic Panel (non-fasting) (07/28/2019 8:36 AM EST) athologist Signature Glucose Lvl 153 65 - 199 [facility] mg/dL [facility] Comment: Diabetes: >=200 mg/dL plus symp toms BUN 22 (H) 10 - 20 mg/dL [facility] [...] LABORATORY Calcium 9.3 8.5 - 10.5 mg/dL [facility] Estimated GFR 70 >=60 mL/min/1.73 m?? [facility] Comment: The eGFR was calculated using the CKD-EP I equation. As with all creatinine based estimates of kidney function, eGFR values calculated with the CKD-EPI equation are not accurate in patients wi th acute kidney failure, extremes of body mass or the acutely ill. http://tinyurl.com/[facility] eGFR 81 >=60 mL/min/1.73 m?? [facility] Comment: The eGFR was calculated using the CKD-EP I equation. As with all creatinine based estimates of kidney function, eGFR values calculated with the CKD-EPI equation are not accurate in patients wi th acute kidney failure, extremes of body mass or the acutely ill. http://FunPuntos/[facility] Specimen Anatomical Collection Method Collection Time Receive d Time (Source) Location / / Volume Laterality Blood specimen 07/28/2019 8:36 AM 020 8:46 (specimen) EST AM EST Resulting Agency Comment Spec In Lab Danette Maxwell STACIE CHEMISTRY ORDERABLES Performing Organization Address City/State/[place] [address] (ABNORMAL) pro-Brain Natriuretic Peptide (07/28/2019 8:36 AM EST) athologist Signature ProBNP 647 (H) <=125 pg/mL [facility] Specimen Anatomical Collection Method Collection Time Receive d Time (Source) Location / / Volume Laterality Blood specimen 07/28/2019 8:36 AM 020 8:46 (specimen) EST AM EST Resulting Agency Comment Spec In Lab Danette Maxwell STACIE CHEMISTRY ORDERABLES Performing Organization Address City/State/[place] [address] documented in this encounter Visit Diagnoses Diagnosis Chronic systolic heart failure ASHD (arteriosclerotic heart disease) Coronary atherosclerosis of unspecified type of vessel, [place] or graft S/P CABG x 3 Postsurgical aortocoronary bypass status MARIA VICTORIA (obstructive sleep apnea) on CPAP Obstructive sleep apnea (adult) (pediatr ic) Mixed hyperlipidemia documented in this encounter Care Teams Production Material Handler Relationship Specialty Start Date End Date Lovely Vicente MD PCP - General 04/16/[address] [place] [address] documented as of this encounter
--- OUTSIDE RECORDS SUMMARY | 2022-03-04 14:50 | XMS_ITS | Encounter Summary ---
:1945 [place] [address] Care Team Providers Name Role Phone Lovely Vicente MD Primary Care Provider Encounter Details Date Type Department Care Team Description 03/20/2021 Telephone [place]rology [place] [facility] [place] Gaston [place] [facility] [place] [address] [place] [address] [phone] (Wo rk) Social History Tobacco Use Types [...] 03/20/2021 6:03 PM EDT Call from [facility]. 76 M with h/o DM. CABG, [...] Gaston MD Department of Neurology Pager # [phone] documented in this encounter Plan of Treatment Upcoming Encounters Date Type Specialty Care Team Description 03/26/2022 Office Visit Cardiology Vitaliy Nobles MD [facility] [address] [place], [place] [address] (Wo rk) 06/10/2022 Office Visit Dermatology Laura Scherer MD [facility] DR [address] [place], [place] [address] (Wo rk) documented as of this encounter Visit Diagnoses Not on filedocumented in this encounter Care Teams Delivery Crew Worker Relationship Specialty Start Date End Date Lovely Vicente MD PCP - General 04/16/[address] [place] [address] documented as of this encounter
--- OUTSIDE RECORDS SUMMARY | 2022-03-04 14:50 | XMS_ITS | Encounter Summary ---
:1945 [place] [address] Care Team Providers Name Role Phone Lovely Vicente MD Primary Care Provider Reason for Visit Reason Comments Skin Cancer Examination Encounter Details Date Type Department Care Team Description 03/20/2021 Office Visit Dermatology at 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 Last visit at [facility] Derm: 01/02/2020 Medications: Reviewed in eD-H [...] FSE; history of Melanoma []Note routed to glass cleaner [x]Recall has been placed in scheduling system []Appointment scheduled at checkout Scribe attestation: Yoana Pang LPN has performed the documentation for this encounter in the presence of and acting as a scribe for LAURA RENE MD I performed the above scribed service and agree with the accuracy of the documentation in this encounter. Reviewed and signed by: LAURA RENE MD Dermatology [facility] documented in this encounter Plan of Treatment Upcoming Encounters Date Type Specialty Care Team Description 03/26/2022 Office Visit Cardiology Vitaliy Nobles MD [facility] ER DR TADE[address] [place], [place] [address] (Wo rk) 06/10/2022 Office Visit Dermatology Laura Rene MD [facility] DR [address] GR[address]MAT [facility] [place] [address] (Wo rk) documented as of this encounter Visit Diagnoses Diagnosis History of melanoma Personal history of malignant melanoma o f skin History of dysplastic nevus Personal history of diseases of skin and subcutaneous tissue Multiple benign nevi Benign neoplasm of skin, site unspecifie d [place] (seborrheic keratosis) Other seborrheic keratosis [place] (actinic keratosis) Actinic keratosis documented in this encounter Care Teams Specialist Wound Care Relationship Specialty Start Date End Date Lovely Vicente MD PCP - General 04/16/[address] [place] [address] documented as of this encounter
--- OUTSIDE RECORDS SUMMARY | 2022-03-04 14:50 | XMS_ITS | Encounter Summary ---
:1945 Author Organization [facility] [place] [address] Care Team Providers Name Role Phone Lovely Vicente MD Primary Care Provider Encounter Details Date Type Department Care Team Description 07/28/2019 Laboratory Appointment Lab 3L [facility] systolic [facility] [place] [phone] Social History Tobacco Use Types Packs/Day Years [...] Nobles MD [facility] CARDIOLOGY [place], [place] [address] (Wo rk) 06/10/2022 Office Visit Dermatology Laura Scherer MD [facility] DR [address] OLOGY [place], [place] [address] (Wo rk) documented as [...] Organization Address City/State/[place] [address] (ABNORMAL) Basic Metabolic Panel (non-fasting) (07/28/2019 8:36 AM EST) athologist Signature Glucose Lvl 153 65 - 199 [facility] mg/dL [facility] Comment: Diabetes: >=200 mg/dL plus symp toms BUN 22 (H) 10 - 20 mg/dL [facility] Creatinine 1.05 0.80 - 1.50 mg/dL [facility] [...] 15 mmol/L [facility] Calcium 9.3 8.5 - 10.5 mg/dL [facility] Estimated GFR 70 >=60 mL/min/1.73 m?? [facility] Comment: The eGFR was calculated using the CKD-EP I equation. As with all creatinine based estimates of kidney function, eGFR values calculated with the CKD-EPI equation are not accurate in patients wi th acute kidney failure, extremes of body mass or the acutely ill. http://[employer]/[facility] CLAREMOREnkf eGFR 81 >=60 mL/min/1.73 m?? [facility] Comment: The eGFR was calculated using the CKD-EP I equation. As with all creatinine based estimates of kidney function, eGFR values calculated with the CKD-EPI equation are not accurate in patients wi th acute kidney failure, extremes of body mass or the acutely ill. http://[employer]/[facility] CLAREMOREnkf Specimen Anatomical Collection Method Collection Time Receive d Time (Source) Location / / Volume Laterality Blood specimen 07/28/2019 8:36 AM 020 8:46 (specimen) EST AM EST Resulting Agency Comment Spec In Lab Danette Maxwell APRN CHEMISTRY ORDERABLES Performing Organization Address City/State/ZIP Code Phon e Number [place] [id number] documented in this encounter Visit Diagnoses Diagnosis Chronic systolic heart failure documented in this encounter Care Teams Cam Specialist Relationship Specialty Start Date End Date Lovely Vicente MD PCP - General 04/16/[address] [place] [address] documented as of this encounter
--- OUTSIDE RECORDS SUMMARY | 2022-03-04 14:50 | XMS_ITS | Encounter Summary ---
:1945 Author Organization [facility] [place] [address] Care Team Providers Name Role Phone Lovely Vicente MD Primary Care Provider Encounter Details Date Type Department Care Team Description 03/20/2021 Ancillary Procedure Radiology Library [place] [address] [place] [address] [phone] Social History Tobacco Use Types Packs/Day Years [...] MD [facility] DR [address] [place], [place] [address] (Wo rk) 06/10/2022 Office Visit Dermatology Laura Scherer MD [facility] DR [address] GR[address] OLOGY [place], [place] [address] (Wo rk) documented as [...] Organization Address City/State/ZIP Code Phon e Number [place], [place] documented in this encounter Visit Diagnoses Not on filedocumented in this encounter Care Teams Funeral Planning Counselor Relationship Specialty Start Date End Date Lovely Vicente MD PCP - General 04/16/[address] [place] [address] documented as of this encounter
--- OUTSIDE RECORDS SUMMARY | 2022-03-04 14:50 | XMS_ITS | Encounter Summary ---
:1945 Author Organization [facility] [place] [address] Care Team Providers Name Role Phone Lovely Vicente MD Primary Care Provider Encounter Details Date Type Department Care Team Description 01/16/2019 Laboratory Appointment Lab 3L [facility] [place] [phone] Social History Tobacco Use Types Packs/Day Years [...] Nobles MD [facility] CARDIOLOGY [place], [place] [address] (Wo rk) 06/10/2022 Office Visit Dermatology Laura Scherer MD [facility] DR [address] GR[address] OLOG[address] [place], [place] [address] (Wo rk) documented as of [...] athologist Signature ProBNP 780 (H) <=125 pg/mL [facility] Specimen Anatomical Collection Method Collection Time Receive d Time (Source) Location / / Volume Laterality Blood specimen 01/16/2019 7:49 AM 019 7:55 (specimen) EDT AM EDT Resulting Agency Comment Spec In Lab Danette Maxwell APRN CHEMISTRY ORDERABLES Performing Organization Address City/State/ZIP [place] [address] (ABNORMAL) Basic Metabolic Panel (non-fasting) (01/16/2019 7:49 AM EDT) P athologist Signature Glucose Lvl 105 65 - 199 [facility] mg/dL [facility] Comment: Diabetes: >=200 mg/dL plus symp toms BUN 25 (H) 10 - 20 mg/dL [facility] Creatinine 1.08 0.80 - 1.50 mg/dL [facility] Sodium 145 135 - 145 mmol/L [facility] Potassium 4.7 3.5 - 5.0 mmol/L [facility] Comment: Please note: ??Patients with WBC >100,00 0 may have falsely elevated Potassium levels. ??For accurate Potassium quantif ication in these patients send serum separator tube (gold top) for subsequent determinations. ??Contact the Clinical Chemistry Laboratory if there are any qu estions. Chloride 106 98 - 107 mmol/L [facility] CO2 26 22 - 31 mmol/L [facility] Anion Gap 13 5 - 15 mmol/L [facility] Calcium 9.2 8.5 - 10.5 mg/dL [facility] Estimated GFR 68 >=60 mL/min/1.73 m?? [facility] Comment: The eGFR was calculated using the CKD-EP I equation. As with all creatinine based estimates of kidney function, eGFR values calculated with the CKD-EPI equation are not accurate in patients wi th acute kidney failure, extremes of body mass or the acutely ill. http://Jipio/[facility] MCALESTERnkf eGFR 79 >=60 mL/min/1.73 m?? [facility] Comment: The eGFR was calculated using the CKD-EP I equation. As with all creatinine based estimates of kidney function, eGFR values calculated with the CKD-EPI equation are not accurate in patients wi th acute kidney failure, extremes of body mass or the acutely ill. http://Jipio/[facility] MCALESTERnkf Specimen Anatomical Collection Method Collection Time Receive d Time (Source) Location / / Volume Laterality Blood specimen 01/16/2019 7:49 AM 019 7:55 (specimen) EDT AM EDT Resulting Agency Comment Spec In Lab Danette Maxwell APRN CHEMISTRY ORDERABLES Performing Organization Address City/State/[place] [address] documented in this encounter Visit Diagnoses Diagnosis Chronic systolic heart failure documented in this encounter Care Teams Ceramic Saw Tender Relationship Specialty Start Date End Date Lovely Vicente MD PCP - General 04/16/[address] [place] [address] documented as of this encounter
--- OUTSIDE RECORDS SUMMARY | 2022-03-04 14:50 | XMS_ITS | Encounter Summary ---
:1945 [place] [address] Care Team Providers Name Role Phone Lovely Vicente MD Primary Care Provider Encounter Details Date Type Department Care Team Description 08/15/2018 Laboratory Appointment Lab 3[place] [address] Social History Tobacco Use Types Packs/Day [...] Nobles MD [facility] [address] [place], [place] [address] (Wo rk) 06/10/2022 Office Visit Dermatology Laura Scherer MD [facility] DR [address] GR[address] OLOG[address] [place], [place] [address] (Wo rk) documented as of this encounter Procedures Procedure Name Priority Date/Time Associated Diagnosis Comme nts PROTHROMBIN TIME Routine 08/15/2018 8:04 AM Resul ts for this EST procedure are i n the results section. documented in this encounter Results (ABNORMAL) Prothrombin Time (08/15/2018 8:04 AM EST) P athologist Signature PT 24.0 (H) 9.4 - 12.5 [facility] LABORATORY INR 2.1 [facility] Comment: An INR <2.0 [...] Organization Address City/State/[place] [address] documented in this encounter Visit Diagnoses Not on filedocumented in this encounter Care Teams Competitive Shopper Relationship Specialty Start Date End Date Lovely Vicente MD PCP - General 04/16/[address] [place] [address] documented as of this encounter
--- OUTSIDE RECORDS SUMMARY | 2022-03-04 14:50 | XMS_ITS | Encounter Summary ---
:1945 Author Organization [facility] Address [facility] [address] [place] [address] Care Team Providers Name Role Phone Lovely Vicente MD Primary Care Provider Reason for Referral Diagnostic Test (Routine) - Closed Specialty Diagnoses / Procedures Referred By Contact Refer red To Contact Cardiology Diagnoses Chronic systolic heart failure Danette Maxwell APRN [facility] Non-Inv Card Lab Procedures Echocardiogram Transthoracic(Leb) [facility] [place] [address] [place] [address] Referral ID Status Reason Start Date Expiration Date Visits V isits Requested Authorized [id number] Closed Specialty 07/17/2019 09/14/2019 1 1 Service Requested Encounter Details Date Type Department Care Team Description 01/16/2019 Office Visit Cardiology at [facility] Danette Maxwell, Chronic systolic heart failu re; [facility] STACIE Cardiomyopathy, ischemic; Drive [facility] Hx of thyroid cancer; [place], [place] DR [address] (arteriosclerotic heart disease); [phone] CARDIOLOGY MARIA VICTORIA (obstructive sleep apnea) on CPAP [phone] [place], [place] [address] (Wo rk) Social History Tobacco Use Types [...] K+ 4.6 today 6. Post-op atrial fibrillation [id number] (CHF, HTN, DM, vascular disease, thromboembolism) Amiodarone discontinued Continue coumadin INR managed by PCP. 2.1 today 7. PAD 08/06/2017: Right 1st, 2nd, 3rd toe amputation 08/11/2017: Left??femoral arterial access, RLE??angiogram, Balloon angioplasty of R PT with Eleazar 2.5 x 80 10/25/2017: right popliteal-pedal bypass at [facility] 8. Hypothyrodism S/p thyroidectomy for [...] MD [facility] CARDIOLOGY [place], [place] [address] (Wo rk) 06/10/2022 Office Visit Dermatology Laura Scherer MD [facility] ER DR TEJA GR-DERMAT OLOGY [place], [place] [address] (Wo rk) documented as of this encounter Results ECHOCARDIOGRAM COMPLETE W CONTRAST (07/28/2019 8:19 AM EST) athologist Signature EF 40 [facility] Specimen (Source) Anatomical Location Collection Method / Collectio n Time Received Time / Laterality Volume 07/28/2019 Narrative [facility] - 07/28/2019 8:38 AM EST Procedure: ?Transthoracic Echocardiogram Patient: ?NATALYA GREGORY Mccollum ? (Age): 1945(74y) Med Rec#: ? [id number] ?Sex: ?M ? Site Loc: ? [facility] ?Ht / Wt: ??172(cm)/81(kg) Pt. Loc: ?Echo Lab ?BSA: ?1.94 Study Date: ?? 07/28/2019 ?Pt. Type: Outpatient Tape: ? Referring: MARY ELLEN Reading: Ifeanyi Truong () Snow Plow Operator: Fadumo Flanagan RDCS, REGINA Diagnosis: *Chronic systolic [...] E-wave Vmax ?1 ?m/sec ? MV deceleration fqdm216.5 ? msec ? MV A-wave Vmax ?1 [...] ? Mid-Inferior ?Hypokinetic ? Mid-Inferoseptal ?Normal ? [place]-Septal ? Normal ? [place]-Anterior ? Hypokinetic ? [place]-Lateral ?Normal ? [place]-Inferior ? Akinetic ? [place]-Tip ?Hypokinetic ? This report has been electronically sign ed by: _ Ifeanyi Truong M.D. ? 07/28/2019 0 8:38:01 Images reviewed and interpretation [facility] Procedure Note Ifeanyi Truong MD - 07/28/2019Formatt ing of this note might be different from the original. Procedure: Transthoracic Echocardiogram Patient: NATALYA MCBRIDE(Age): [birth year]74y) Med Rec#: [id number] Sex: M Site Loc: [facility] Ht / Wt: 172(cm)/81(kg) Pt. Loc: Echo Lab BSA: 1.94 Study Date: 07/28/2019 Pt. Type: Outpati ent Tape: Referring: MARY ELLEN Reading: Ifeanyi Truong ([id number]) Snow Plow Operator: Fadumo Flanagan RDCS, FASE Diagnosis: *Chronic [...] MV E-wave Vmax 1 m/sec MV deceleration vpbo936.5 msec MV A-wave Vmax 1 m/sec MV [...] Normal Mid-Posterolateral Normal Mid-Inferior Hypokinetic Mid-Inferoseptal Normal [place]-Septal Normal Durham-Anterior Hypokinetic Durham-Lateral Normal Durham-Inferior Akinetic Durham-Tip Hypokinetic This report has been electronically sign ed by: _ Ifeanyi Truong M.D. 07/28/2019 08:38:0 1 Images reviewed and interpretation verif ied [facility] Cardiac Ultrasound Laboratory Danette Maxwell APRN ECHO ORDERABLES Performing Organization Address City/State/ZIP Code Phon e Number [facility] (ABNORMAL) Basic Metabolic Panel (non-fasting) (01/16/2019 7:49 AM EDT) P athologist Signature Glucose Lvl 105 65 - 199 [facility] mg/dL [facility] Comment: Diabetes: >=200 mg/dL plus symp toms BUN 25 (H) 10 - 20 mg/dL [facility] Creatinine 1.08 0.80 - 1.50 [...] Chloride 106 98 - 107 mmol/L [facility] CO2 26 22 - 31 mmol/L [facility] [...] of body mass or the acutely ill. http://[employer]/[facility]AHnkf eGFR 79 >=60 mL/min/1.73 m?? [facility] Comment: The eGFR was calculated using the CKD-EP I equation. As with all creatinine based estimates of kidney function, eGFR values calculated with the CKD-EPI equation are not accurate in patients wi th acute kidney failure, extremes of body mass or the acutely ill. http://[employer]/[facility]MCnkf Specimen Anatomical Collection Method Collection Time Receive d Time (Source) Location / / Volume Laterality Blood specimen 01/16/2019 7:49 AM 019 7:55 (specimen) EDT AM EDT Resulting Agency Comment Spec In Lab Danette Maxwell APRN CHEMISTRY ORDERABLES Performing Organization Address City/[facility]/[place] [address] (ABNORMAL) pro-Brain Natriuretic Peptide (01/16/2019 7:49 AM EDT) P athologist Signature ProBNP 780 (H) <=125 pg/mL [facility] Specimen Anatomical Collection Method Collection Time Receive d Time (Source) Location / / Volume Laterality Blood specimen 01/16/2019 7:49 AM 019 7:55 (specimen) EDT AM EDT Resulting Agency Comment Spec In Lab Danette Maxwell APRN CHEMISTRY ORDERABLES Performing Organization Address City/[facility]/[place] [address] documented in this encounter Visit Diagnoses Diagnosis Chronic systolic heart failure Cardiomyopathy, ischemic Other specified forms of chronic ischemi c heart disease Hx of thyroid cancer Personal history of malignant neoplasm o f thyroid ASHD (arteriosclerotic heart disease) Coronary atherosclerosis of unspecified type of vessel, [place] or graft MARIA VICTORIA (obstructive sleep apnea) on CPAP Obstructive sleep apnea (adult) (pediatr ic) Chronic systolic heart failure documented in this encounter Care Teams Medical Records Director Relationship Specialty Start Date End Date Lovely Vicente MD PCP - General 04/16/[address] [place] [address] documented as of this encounter
--- OUTSIDE RECORDS SUMMARY | 2022-03-04 14:50 | XMS_ITS | Encounter Summary ---
:1945 Author Organization [facility] [place] [address] Care Team Providers Name Role Phone Lovely Vicente MD Primary Care Provider Encounter Details Date Type Department Care Team Description 03/20/2021 Ancillary Procedure Radiology Library at [place] [address] [place] [address] [phone] Social History Tobacco Use Types Packs/Day Years [...] [facility] [address] TADE[address] [place], [place] [address] (Wo rk) 06/10/2022 Office Visit Dermatology Laura Scherer MD [facility] DR TEJA GR-DERMAT OLOGY [place], [place] [address] (Wo rk) documented as of [...] Organization Address City/State/ZIP Code Phon e Number [place], [place] documented in this encounter Visit Diagnoses Not on filedocumented in this encounter Care Teams Eye Technician Relationship Specialty Start Date End Date Lovely Vicente MD PCP - General 04/16/[address] [place] [address] documented as of this encounter
--- OUTSIDE RECORDS SUMMARY | 2022-03-04 14:50 | XMS_ITS | Encounter Summary ---
:1945 Author Organization [facility] [place] [address] Care Team Providers Name Role Phone Lovely Vicente MD Primary Care Provider Encounter Details Date Type Department Care Team Description 03/20/2021 Ancillary Procedure Radiology Library at [place] [address] [place] [address] [phone] Social History Tobacco Use Types Packs/Day Years [...] MD [facility] [address] TADE[address] [place], [place] [address] (Wo rk) 06/10/2022 Office Visit Dermatology Laura Scherer MD [facility] DR TEJA GR[address]MAT [place], [place] [address] (Wo rk) documented [...] Organization Address City/State/ZIP Code Phon e Number [place], [place] documented in this encounter Visit Diagnoses Not on filedocumented in this encounter Care Teams Soaker Hides Relationship Specialty Start Date End Date Lovely Vicente MD PCP - General 04/16/[address] [place] [address] documented as of this encounter
--- OUTSIDE RECORDS SUMMARY | 2022-03-04 14:50 | XMS_ITS | Encounter Summary ---
:1945 [place] [address] Care Team Providers Name Role Phone Lovely Vicente MD Primary Care Provider Encounter Details Date Type Department Care Team Description 04/16/2021 Office Visit Cardiology at [facility] Liz Poole, Chronic systolic heart [facility] [place] [address] Cardiology Dept [phone] [place], [place] [address] Social History Tobacco Use Types [...] was feeling good. 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 07/07/2019 - 07/21/2019 Zio Patch Grinder Set Up Operator Thread The patient had a minimum heart rate [...] K+ 5.2 today 6. Post-op atrial fibrillation [id number] 7 (CHF, HTN, DM, vascular disease, thromboembolism) On warfarin - recent labile INR Will discuss with PCP, option of Luis Daniel 7. PAD 08/06/2017: Right 1st, 2nd, 3rd toe amputation 08/11/2017: Left??femoral arterial access, RLE??angiogram, Balloon angioplasty of R PT 10/25/2017: right popliteal-pedal bypass at [facility] 8. Hypothyrodism S/p thyroidectomy for [...] Nobles MD [facility] CARDIOLOGY [place], [place] [address] (Wo rk) 06/10/2022 Office Visit Dermatology Laura Scherer MD [facility] DR TEJA GR-DERMAT [place], [place] [address] (Wo rk) documented as of this encounter Results (ABNORMAL) Basic Metabolic Panel (non-fasting) (04/16/2021 9:58 AM EDT) athologist Signature Glucose Lvl 77 65 - 199 [facility] mg/dL [facility] Comment: [...] Organization Address City/State/[place] [address] (ABNORMAL) pro-Brain Natriuretic Peptide [...] Organization Address City/State/[place] [address] documented in this encounter Visit Diagnoses Diagnosis Chronic systolic heart failure documented in this encounter Care Teams Process Architect Relationship Specialty Start Date End Date Lovely Vicente MD PCP - General 04/16/[address] [place] [address] documented as of this encounter
--- OUTSIDE RECORDS SUMMARY | 2022-03-04 14:50 | XMS_ITS | Encounter Summary ---
:1945 Author Organization [facility] [place] [address] Care Team Providers Name Role Phone Lovely Vicente MD Primary Care Provider Reason for Referral Diagnostic Test (Routine) - Closed Specialty Diagnoses / Procedures Referred By Contact Refer red To Contact Cardiology Diagnoses Chronic systolic heart failure Danette Maxwell APRN [facility] Non-Inv Card Lab Procedures Echocardiogram Transthoracic(Leb) [facility] [place] [address] [place] [address] Referral ID Status Reason Start Date Expiration Date Visits V isits Requested Authorized [id number] Closed Specialty 07/17/2019 09/14/2019 1 1 Service Requested Reason for Visit Diagnostic Test (Routine) - Closed Specialty Diagnoses / Procedures Referred By Contact Refer red To Contact Cardiology Diagnoses Chronic systolic heart failure Danette Maxwell APRN [facility] Non-Inv Card Lab Procedures Echocardiogram Transthoracic(Leb) [facility] [place] [address] [place] [address] Referral ID Status Reason Start Date Expiration Date Visits V isits Requested Authorized [id number] Closed Specialty 07/17/2019 09/14/2019 1 1 Service Requested Encounter Details Date Type Department Care Team Description 07/28/2019 Hospital Encounter Non-Invasive Chronic s ystolic heart [place] [address] Social History Tobacco Use Types Packs/Day [...] MD [facility] [address] [place], [place] [address] (Wo rk) 06/10/2022 Office Visit Dermatology Laura Scherer MD [facility] [address]-DERMAT OLOGY [place], [place] [address] (Wo rk) documented as [...] Mccollum ? (Age): 1945(74y) Med Rec#: ? [id number] ?Sex: ?M ? Site Loc: ? [facility] ?Ht / Wt: ??172(cm)/81(kg) Pt. Loc: ?Echo Lab ?BSA: ?1.94 Study Date: ?? 07/28/2019 ?Pt. Type: Outpatient Tape: ? Referring: MARY ELLEN Reading: Ifeanyi Truong ([id number]) Interpreter Deaf: Fadumo Flanagan RDCS, FASE Diagnosis: *Chronic systolic [...] E-wave Vmax ?1 ?m/sec ? MV deceleration ajsy380.5 ? msec ? MV A-wave Vmax ?1 [...] ? Mid-Inferior ?Hypokinetic ? Mid-Inferoseptal ?Normal ? Raymond-Septal ? Normal ? Raymond-Anterior ? Hypokinetic ? Raymond-Lateral ?Normal ? Raymond-Inferior ? Akinetic ? Raymond-Tip ?Hypokinetic ? This report has been electronically sign ed by: _ Ifeanyi Truong M.D. ? 07/28/2019 0 8:38:01 Images reviewed and interpretation elvie hwang [facility] Cardiac Ultrasound Laboratory Procedure Note Ifeanyi Truong MD - 07/28/2019Formatt ing of this note might be different from the original. Procedure: Transthoracic Echocardiogram Patient: NATALYA MCBRIDE(Age): [birth year]74y) Med Rec#: [id number] Sex: M Site Loc: [facility] Ht / Wt: 172(cm)/81(kg) Pt. Loc: Echo Lab BSA: 1.94 Study Date: 07/28/2019 Pt. Type: Outpati ent Tape: Referring: MARY ELLEN Reading: Ifeanyi Truong ([id number]) Interpreter Deaf: Fadumo Flanagan RDCS, REGINA Diagnosis: *Chronic systolic [...] MV E-wave Vmax 1 m/sec MV deceleration wqnr452.5 msec MV A-wave Vmax 1 m/sec MV [...] Normal Mid-Posterolateral Normal Mid-Inferior Hypokinetic Mid-Inferoseptal Normal Raymond-Septal Normal Raymond-Anterior Hypokinetic Raymond-Lateral Normal Raymond-Inferior Akinetic Raymond-Tip Hypokinetic This report has been electronically sign ed by: _ Ifeanyi Truong M.D. 07/28/2019 08:38:0 1 Images reviewed and interpretation verif ied [facility] Cardiac Ultrasound Laboratory Danette [...] Routine documented in this encounter Care Teams Pipe Fittings Molder Relationship Specialty Start Date End Date Lovely Vicente MD PCP - General 04/16/[address] [place] [address] documented as of this encounter
--- OUTSIDE RECORDS SUMMARY | 2022-03-04 14:50 | XMS_ITS | Encounter Summary ---
:1945 Author Organization [facility] [place] [address] Care Team Providers Name Role Phone Lovely Vicente MD Primary Care Provider Reason for Visit Reason Comments Establish Care Atrial Fibrillation Congestive Heart Failure Cardiomyopathy Encounter Details Date Type Department Care Team Description 09/06/2019 [facility] Osvaldo STRANGE [address] [place], [place] CARDIOLOGY DEPT. [address] [place] [address] [phone] Social History Tobacco Use Types Packs/Day Years [...] today For any questions, call my office: [phone] To access your health care information, go to the web at: [email or web address] (you will need to register) For educational materials: [email or web address] Karel TRAMMELL.[facility], Clinical Cardiac Electrophysiology, [facility], [facility] A Healthy Heart: After Your Visit [...] least 2 servings of fish a week. [place], mackerel, mcfadden, sardines, and chunk light tuna [...] irregular heartbeat. After you call 911, the cold saw operator may tell you to chew [...] more? Visit our health information library at [email or web address]. You can also view health information on [employer], your personal patient account. Log in or sign up today. Enter F075 in the search box to learn more about A Healthy Heart: After Your Visit. ?? [phone] [employer] documented in this encounter Progress Notes Karel Mcelroy MD - 09/06/2019 2:20 PM EST Images from the original note were not included. Section of Cardiology/Cardiac Electrophysiology [facility] Clinical Cardiac Electrophysiology Consult Patient ID Don Fatima 1945 [id number] Don Fatima is referred to the EP clinic by Danette Maxwell APRN PhD Chief Complaint Dyspnea on exertion Ischemic cardiomyopathy History This is a 74 y.o. male following up/being seen in clinic for evaluation for ongoing anticoagulation. He has a Vozbs1Ssnc score of ~ 6-7. He has a [...] on phone: None Gets together: None Attends moravian service: None Active member of club or [...] reviewed the ECG: sinus rhythm, 72 bpm, MS 140 ms, QRS 100 ms, QT 400 [...] EP clinic KAREL MCELROY MD Cardiac Electrophysiology [facility] T: [phone] F: [phone] minutes of this 40 minute encounter were spent in counselling, as described above Cc: MD Danette Cr APRN PhD Janett Espino DPM documented in this encounter Plan of Treatment Upcoming Encounters Date Type Specialty Care Team Description 03/26/2022 Office Visit Cardiology Vitaliy Nobles MD [facility] [address] T[address] [place], [place] [address] (Wo rk) 06/10/2022 Office Visit Dermatology Laura Scherer MD [facility] ER DR [address]MAT OLOG[address] [place], [place] [address] (Wo rk) documented as of [...] 446 ms MUSE SYSTEM (Bezet) Calculated P [place] 37 degrees MUSE SYSTEM Calculated R [place] -23 degrees MUSE SYSTEM Calculated T [place] 116 degrees MUSE SYSTEM INTERPRETATION Normal sinus rhythm MUSE SYSTEM Inferior infarct (cited on or before 25-JAN-2013) ST & T wave abnormality, consider anterolateral ischemia Abnormal ECG When compared with ECG of 19-AUG-2017 10:23, No significant change was found Confirmed by MD Castellon Daniel ([id number]) on 09/08/2019 10:22:4 7 AM Specimen Anatomical [...] disease documented in this encounter Care Teams Drafter Directional Survey Relationship Specialty Start Date End Date Lovely Vicente MD PCP - General 04/16/[address] [place] [address] documented as of this encounter
--- OUTSIDE RECORDS SUMMARY | 2022-03-04 14:50 | XMS_ITS | Encounter Summary ---
:1945 Author Organization [facility] [place] [address] Care Team Providers Name Role Phone Lovely Vicente MD Primary Care Provider Encounter Details Date Type Department Care Team Description 12/08/2021 External Results Non-Invasive Cardiology Lab Mar y None [facility] [place] [address] Social History Tobacco Use Types Packs/Day [...] [facility] [address] TADE[address] [place], [place] [address] (Wo rk) 06/10/2022 Office Visit Dermatology Laura Scherer MD [facility] DR TEJA GR[facility] [place] [place] [address] (Wo rk) documented as [...] on filedocumented in this encounter Care Teams Disability Examiner Relationship Specialty Start Date End Date Lovely Vicente MD PCP - General 04/16/[address] [place] [address] documented as of this encounter
--- OUTSIDE RECORDS SUMMARY | 2022-03-04 14:50 | XMS_ITS | Encounter Summary ---
:1945 Author Organization [facility] [place] [address] Care Team Providers Name Role Phone Lovely Vicente MD Primary Care Provider Reason for Visit Auth/Cert Specialty Diagnoses / Procedures Referred By Contact Refer red To Contact Diagnoses NSTEMI Procedures emerg ipi Referral ID Status Reason Start Date Expiration Date Visits Requ ested Visits Authorized [id number] 1 1 Encounter Details Date Type Department Care Team Description 12/10/2021 Surgery Administrative Office Specialist Asa Coulter MD CARDIAC CATHETERIZATION [facility] DR Siddiqui [place] [address] [place] [address] [phone] (Wo rk) Social History Tobacco Use Types [...] Don Fatima Patient Age: 76 y.o. Language: Grenadian Race: White Ethnicity: Not nor Admit date: [...] Peter PA-C Kelly LaFlamme PA-C Cardiovascular Medicine [phone] Discharge Diagnoses (Hospital Problems) and Secondary Diagnoses [...] a 3.5 Fr [place] 20 Mhz using Manual pullback. Imaging was successful. Image quality was good. The ostial LCX showed moderate diffuse atherosclerotic plaque with scattered three quadrant calcification. Measurements were performed after pre-dilation. Post Intervention: The stent was well expanded and apposed. Intravascular Ultrasound was performed in the distal LM using a 7 Fr EBU 3.75 guiding catheter and a 3.5 Fr [place] 20 Mhz using Manual pullback. Imaging was successful. Image quality was good. The distal LM showed moderate diffuse atherosclerotic plaque. Post Intervention: The stent was well expanded and apposed. Indication for Intervention: Coronary intervention was indicated for primary therapy for an acute myocardial infarction. The priority for the procedure was Urgent. The [facility] indication for the procedure was NSTE-ACS. [...] may require modification of this regimen. Consult [facility] Interventional Cardiology for questions. [...] vascular congestion and cardiomegaly. ?? TTE from [facility] 12/08/21 ? Prior Cardiac Studies: TTE [...] prior thyroidectomy in 2012 who presented to [facility] with 1 week progressing breathlessness with [...] 03/2021 with Liz Poole PA-C. ?? At [facility], respiratory distress with hypoxia 86% on [...] and diet drinks did not cause his WA. This is what his thought was the [...] appointments: During 8am-5pm Wednesday through Wednesday call [phone] to speak with a nurse in the cardiology clinic All other times call [phone] and ask to speak to the furnace hand documentation improvement specialist. Return to work: One week Driving: No driving for 48 hours after catheterization. Follow up Appointments: PCP Lovely Vicente MD [phone] to see patient at the end of December for annual check up. Patient to see Dr. Lorenzana at 1120 am at December 19 for a post hospital check up. Social Media Campaign Manager Dr. De Oliveira to see you in [facility]. Left a message for office to set a date and time. Please call [phone] Nobles to see the patient for a same day cath in 2-3 weeks from now. Office to call with a date and time. For questions please call [phone] Home oxygen therapy: N/A Arrangements for VNA/home care: none Future Appointments and Orders Future Orders Complete By Expires Basic Metabolic Panel (non-fasting) [LAB15 Custom] 12/19/2021 (Approximate) 12/12/2022 Process Instructions: INCLUDES: Calcium, BUN, Creat, GFR, Glucose, Lytes Scheduling Instructions: Comments: Questions: Referral to Cardiac Rehab [EUY910 Custom] As directed Process Instructions: If no [...] appointments: During 8am-5pm Wednesday through Wednesday call [phone] to speak with a nurse in the cardiology clinic All other times call [phone] and ask to speak to the furnace hand documentation improvement specialist. Return to work: One week Driving: No driving for 48 hours after catheterization. Follow up Appointments: PCP Lovely Vicente MD [phone] to see patient at the end of December for annual check up. Patient to see Dr. Lorenzana at 1120 am at December 19 for a post hospital check up. Social Media Campaign Manager Dr. De Oliveira to see you in [facility]. Left a message for office to set a date and time. Please call [phone] Nobles to see the patient for a same day cath in 2-3 weeks from now. Office to call with a date and time. For questions please call [phone] Home oxygen therapy: N/A Arrangements for VNA/home [...] acetaminophen Take 2 tablets by 0 11/02/2017 0701/2022 (TYLENOL) 650 mg mouth as needed. 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 Tolerated procedure well. Home today at 11 [...] 0.92* 0.89* Pertinent Radiographic/Diagnostic Results: R/[facility] 12/10/21 Hemodynamics: Right Heart Pressures Resting: Syst [...] pulmonary vascular congestion and cardiomegaly. 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 Known CAD with hx of WA and CABG. DM. MARIA VICTORIA.ICM. ??? ASHD [...] was given Lasix 80mg IV x1 in component lab tech. Tolerated procedure well. Review of Systems: Review [...] Intake/Output Summary (Last 24 hours) at 12/11/2021 0993 Last data filed at 12/11/2021 0508 Gross [...] pulmonary vascular congestion and cardiomegaly. TTE from [facility] 12/08/21 Prior Cardiac Studies: TTE 07/28/2019 [...] and answered his questions. Iker Cuevas MD [facility] Total time spent on review of records prior to visit, face to face time with patient during visit, documentation, and coordination of care with other clinicians: 25 minutes. . Iker Cuevas MD - 12/10/2021 12:30 PM EDT Images from the original note were not included. 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 Admitted with 2 days of sob, hypoxemia, and + trop. Known CAD with hx of WA and CABG. DM. MARIA VICTORIA.ICM. ??? ASHD [...] was given Lasix 80mg IV x1 in component lab tech. Tolerated procedure well. Review of Systems: Review [...] pulmonary vascular congestion and cardiomegaly. TTE from [facility] 12/08/21 Prior Cardiac Studies: TTE 07/28/2019 [...] Discussed with MD Migdalia Peter PA-C Pager #[phone] 12/10/2021 Cardiology Attending Note I have seen [...] updated and given pictures. Iker Cuevas MD [facility] Total time spent on review of records prior to visit, face to face time with patient during visit, documentation, and coordination of care with other clinicians: 35 minutes. Iker Cuevas MD - 12/09/2021 7:28 AM EDT Images from the original note were not included. 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 Admitted with 2 days of sob, hypoxemia, and + trop. Known CAD with hx of WA and CABG. DM. MARIA VICTORIA.ICM. ??? ASHD [...] pulmonary vascular congestion and cardiomegaly. TTE from [facility] 12/08/21 Prior Cardiac Studies: TTE 07/28/2019 [...] Discussed with MD Migdalia Peter PA-C Pager #[phone] 12/09/2021 Cardiology Attending Note I have seen and examined the patient. I agree with the findings above. Developed CHF early this am despite getting more iv lasix last evening. Feeling better now. INR > 2. Lungs still wet at base. Echo at [facility] showed EF 35% with mild mod MR slightly lower than last value here. -vit K 2.5 orally to facilitate correction of INR- this will take 12-24 hours to take effect -furosemide 80 mg iv now -postpone right and left heart cath until tomorrow given INR and ADHF -increase statin to achieve LDL < 70 -CPAP tonight Iker Cuevas MD [facility] Total time spent on review of records [...] + trop. Known CAD with hx of WA and CABG. DM. MARIA VICTORIA.ICM. ??? ASHD [...] prior thyroidectomy in 2012 who presented to [facility] with 1 week progressing breathlessness with [...] visit 03/2021 with Liz Poole PA-C. At [facility], respiratory distress with hypoxia 86% on [...] [facility] MAIN OR ??? PRO AMPUTATION FOOT, TRANSMETATARSAL Right 08/09/2017 AMPUTATION, TRANSMETATARSAL (WRVU 12.71) performed by oYnathan Smith MD at [facility] MAIN OR [...] at [facility] ENDOSCOPY ??? PRO DRESSING CHANGE UNDER ANESTHESIA Right 08/11/2017 (MSURG) DRESSING CHANGE (FOR OTHER THAN IVAN) UNDER ANES. (WRVU 0.86) performed by Lamar Smith MD at [facility] MAIN OR ??? PRO ENDOSCOPY W/VIDEO-ASST VEIN HARVEST, CABG Right 07/07/2017 ENDOSCOPIC HARVEST VEIN(S) FOR CABG (WRVU 0.31) performed by Yuan Retana MD at [facility] MAIN OR ??? PRO THYROIDECTOMY 03/28/2013 THYROIDECTOMY, TOTAL OR COMPLETE performed by Manny Mcknight MD at [facility] MAIN OR Significant Family History: Family [...] (H) 65 - 199 mg/dL Labs at [facility] 12/08/2021-troponin I 8004 (UN L <60), [...] ADRs. Trend troponins. Admission EKG. [facility] 12/09; consented. TTE. Telemetry monitoring, daily weights, [...] control; n.p.o. after midnight for [facility] #DVT prophy- heparin infusion #GI prophy- PPI Discussed with MD Morgan Peter PA-C APP2 pager [phone] 12/08/2021 Cardiology Attending Note I have seen [...] is type 1 due to graft or napaimute coronary stenosis vs acute injury from CHF. 3. PAF: currrently in NSR. Have replaced warfarin with heparin 4. PAD: stable 5. DM: stable 6. CKD: will monitor and minimize contrast. Pt very appreciative of Dr. Yuan Retana's care in 2018. Will let him know patient is here. Iker Cuevas MD [facility] documented in this encounter Miscellaneous Notes [...] Type: *No Product type* / Secondary Insurance: [employer] [place] Prescription Coverage: Yes This [...] cath without complications. Migdalia Parker PA-C Pager #[phone] 12/10/2021 Initial Assessments - Nick Georges RN [...] COVID test: Lab Results Component Value Date [id number] Not Detected 12/08/2021 Past medical History: Past [...] 180 days) Any patient receiving care at [facility] must abide by [place] law. The hierarchy [...] (i) The agent with financial power of criminal defense attorney or a conservator appointed in [...] - standard, cane - straight Home Address: [address] [place] [address] [place] [address] Social & Family Supports: All names listed below confirmed with patient as current and correct Extended Emergency Contact Information Primary Emergency Contact: Kisha Fatima Address: [address] [place] [address] [place] [address] [facility] Mobile Relation: Spouse Secondary Emergency Contact: Elba Swenson Address: [address] Mobile Relation: Child Current Care Provided [...] Type: *No Product type* / Secondary Insurance: [facility] Prescription Coverage: Yes Preferred Pharmacy: [facility] [address] [id number] - [place], [place] - [address] [address] [place] Status: Patient is a : unable to assess Primary Care Provider: Lovely Vicente MD [phone] Patient/Caregiver Goals of Treatment: Get out of here Potential Needs for Transition of Care: none Agency Referrals: none patient has used [facility] in the past Transportation: no concerns Transportation Anticipated: family or friend will provide Concerns to be Addressed: patient refuses services, discharge planning Assessment: Patient is admitted to [facility] Service pager [phone] for 76 y.o.??male??with h/o??CAD s/p 3vCABG (THOMPSON-LAD, [...] status on current unit. Nick Georges RN confidential secretary, Office of Care Management Pager: [phone] Brief Op Note - Vitaliy Nobles MD - 12/10/2021 8:31 AM EDT Images from the original note were not included. [facility] [place] [address] CORONARY ANGIOGRAM AND PERCUTANEOUS CORONARY INTERVENTION REPORT Patient: Don Fatima : 1945 MR number: [id number] Date of Service: 12/10/2021 Targeteer: Vitaliy Nobles MD Fellow: [place]o [place] MD [...] management and to provide a review of tar man diabetes care. Diabetes History: Don Fatima has had diabetes for 10 years. He has been on insulin for the last several years andis managed by his PCP. Lives in [place], [place] with his . States that he [...] your patient Desirae Jett APRN Endocrinology Pager [phone] 70 minutes of this 80 minute visit [...] + trop. Known CAD with hx of WA and CABG. DM. MARIA VICTORIA.ICM. ??? ASHD [...] for further details. STEPHANIE Rebolledo 12/08/2021 Pager [phone] documented in this encounter Plan of Treatment Upcoming Encounters Date Type Specialty Care Team Description 03/26/2022 Office Visit Cardiology Vitaliy Nobles MD [facility] [address] [place], [place] [address] (Wo rk) 06/10/2022 Office Visit Dermatology Laura Scherer MD [facility] [address] [place], [place] [address] (Wo rk) Scheduled Referrals Name [...] POC Glucose 215 (H) 65 - 199 [facility] mg/dL [facility], [...] Organization Address City/State/[place] [address] (ABNORMAL) Differential, Automated (12/12/2021 4:51 AM EDT) P athologist Signature Neutrophils % 75.4 % [facility] LABORATORY Neutr Abs (ANC) 5.95 1.70 - [facility] 6.10 [facility] x10(3)/[facility] LABORATORY Lymphocytes % 12.2 % [facility] Lymphocytes Abs 1.0 0.9 - 3.2 [facility] x10(3)/[facility] LABORATORY Monocytes % 9.5 % [facility] LAB[facility] Monocyte Abs 0.8 0.3 - 0.9 [facility] x10(3)/[facility] LABORATORY Eosinophils % 1.8 % [facility] LABOR[facility]ORY Eosinophils Abs 0.1 0.0 - 0.4 [facility] x10(3)/[facility] LABORATORY Basophils % 0.5 % [facility] LABORATORY Basophils Abs 0.0 0.0 - 0.1 [facility] x10(3)/[facility] LABORATORY Immature Gran % 0.60 % [facility] [...] Gran Abs 0.05 (H) 0.00 - 0.04 x10(3)/[facility] LABORATORY Specimen Anatomical Collection Method Collection Time Receive d Time (Source) Location / / Volume Laterality Blood 12/12/2021 4:51 AM 5:06 EDT AM EDT Resulting Agency Comment Spec In Lab Bijan Sun MD HEMATOLOGY ORDERABLES Performing Organization Address City/State/[place] [address] (ABNORMAL) Hemogram (12/12/2021 4:51 AM EDT) Analysis Performed At Patho logist Time Signature WBC 7.9 4.0 - 9.5 [facility] x10(3)/[facility] LABORATORY RBC 4.19 (L) 4.58 - [facility] 5.54 [facility] x10(6)/[facility] LABORATORY Hemoglobin 12.1 (L) 13.7 - [facility] 16.5 g/dL [facility] LABORATORY Hematocrit 36.7 (L) 40.5 - [facility] 48.5 % [facility] LABORATORY MCV 87.6 82.9 - [facility] 93.1 [facility] LABORATORY MCH 28.9 27.5 - [facility] 32.1 pg [facility] LABORATORY MCHC 33.0 32.0 - [facility] 35.7 g/dL [facility] LABORATORY Platelets 231 145 - 357 [facility] x10(3)/[facility] LABORATORY RDWSD 47.2 (H) 36.0 - [facility] 45.0 [facility] LABORATORY RDWCV 14.6 (H) 11.4 - [facility] 13.8 % [facility] LABORATORY MPV 9.5 7.6 - 12.9 [facility] LABORATORY nRBC % Auto 0.0 % [facility] LABORATORY nRBC Abs Auto 0.000 0.000 - [facility] 0.000 [facility] x10(3)/[facility] LABORATORY Specimen Anatomical Collection Method Collection Time Receive d Time (Source) Location / / Volume Laterality Blood 12/12/2021 4:51 AM 5:06 EDT AM EDT Resulting Agency Comment Spec In Lab Bijan Sun MD HEMATOLOGY ORDERABLES Performing Organization Address City/State/[place] [address] (ABNORMAL) Prothrombin Time (12/12/2021 4:51 AM EDT) P athologist Signature PT 14.9 (H) 9.4 - 12.5 [facility] LABORATORY INR 1.3 [facility] LABORATORY Comment: An INR <2.0 [...] Organization Address City/State/ZIP Code Phon e Number [place] [id number] (ABNORMAL) BMP w/fasting Glucose (12/12/2021 4:51 AM EDT) athologist Signature Glucose 152 (H) 65 - 99 [facility] Fasting mg/dL [facility] - [...] of Diabetes Mellitus, Position Statement from the [place] [employer]. ??Diabete s Care, Volume 33, Supplement 1, Jul 2009 BUN 52 (H) 10 - 20 mg/dL [facility] LABORATORY Creatinine 1.72 (H) 0.80 - 1.50 mg/dL [facility] LABORATORY Sodium 143 135 - 145 mmol/L [facility] LABORATORY Potassium 3.9 3.5 - 5.0 mmol/L [facility] LABORATORY Comment: Please note: ??Patients with WBC >100,00 0 may have falsely elevated Potassium levels. ??For accurate Potassium quantif ication in these patients send serum separator tube (gold top) for subsequent determinations. ??Contact the Clinical Chemistry Laboratory if there are any qu estions. Chloride 105 98 - 107 mmol/L [facility] LABOR[facility] CO2 21 (L) 22 - 31 mmol/L [facility] LABOR[facility] Anion Gap 17 (H) 5 - 15 mmol/L [facility] LABORATORY Calcium 8.9 8.5 - 10.5 mg/dL [facility] LABORATORY Estimated GFR 38 (L) >=60 mL/min/1.73 m?? [facility] Comment: This patient? s estimated [...] Cuevas MD CHEMISTRY ORDERABLES Performing Organization Address City/[facility]/ZIP Code Phon e Number [address] Magnesium (12/12/2021 4:51 AM EDT) P athologist Signature Magnesium 1.02 0.69 - 1.07 [facility] mmol/L [facility] LABORATORY Specimen Anatomical Collection Method Collection Time Receive d Time (Source) Location / / Volume Laterality Blood 12/12/2021 4:51 AM 2 5:06 EDT AM EDT Resulting Agency Comment Spec In Lab Iker Cuevas MD CHEMISTRY ORDERABLES Performing Organization Address City/[facility]/[place] [address] POCT Glucose (12/12/2021 3:43 AM EDT) athologist Signature POC Glucose 138 65 - 199 [facility] mg/dL [facility] [...] Organization Address City/State/[place] [address] POCT Glucose (12/11/2021 11:44 PM EDT) athologist Signature POC Glucose 124 65 - 199 [facility] mg/dL [facility] [...] Organization Address City/State/[place] [address] (ABNORMAL) POCT Glucose (12/11/2021 [...] Organization Address City/State/[place] [address] (ABNORMAL) POCT Glucose (12/11/2021 6:50 PM EDT) athologist Signature POC Glucose 245 (H) 65 - 199 [facility] mg/dL [facility] [...] Organization Address City/State/[place] [address] (ABNORMAL) POCT Glucose (12/11/2021 4:00 PM EDT) athologist Signature POC Glucose 383 (H) 65 - 199 [facility] mg/dL [facility] - [...] Organization Address City/State/[place] [address] (ABNORMAL) POCT Glucose (12/11/2021 12:01 PM EDT) athologist Signature POC Glucose 342 (H) 65 - 199 [facility] mg/dL [facility] [...] Organization Address City/State/[place] [address] COVID-19 PCR (12/11/2021 10:13 AM EDT) [facility] Method Time Signature SARS-CoV-2 Not Detected Not Detected [facility] LABORATORY Comment: This result should be interpreted [...] diagnosis of COVID-19 is performed using the TrepUp S-CoV-2 Assay as authorized by the FDA Emergency Use Authorization (EUA). This EUA assay is intended for In-vitro Diagnostic (IVD) use with respiratory sp ecimens such as nasopharyngeal swabs collected from individuals during the ac terrence phase of infection. This assay is performed based on the instructions for use provided by [employer], [employer]. and additional guidance provided by CDC and FDA. Testing is performed in the Clinical Genomics and Advanced Technolog y Laboratory within the Department of Pathology and Laboratory Medicine at [facility], certified under the Clinical Laboratory Improvement Amendments [...] fact sheets at the following FDA website: https://www.fda.gov/medical-devices/vicwusyxgex-oeidprk-1132-qthms-07-rmzxzmieg- jkg-roxyhduxerywez-kpbowij-devices/njdwh-wzrpbjjafdz-sbma SARS-Cov-2 RNA Source JOY OPERATOR HELPER Swab [facility] LABORATORY Specimen (Source) Anatomical Collection Method Collection Time Re ceived Time Location / / Volume Laterality Nasopharyngeal Swab 12/11/2021 10:13 0503/2022 AM EDT 11:16 AM EDT Comment: Symptoms->Surveillance Resulting Agency Comment Spec In Lab Iker Cuevas MD MICROBIOLOGY - GENERAL ORDER [place] Performing Organization Address City/State/ZIP Code Phon e Number [address] POCT Glucose (12/11/2021 7:34 AM EDT) athologist Signature POC Glucose 198 65 - 199 [facility] mg/dL [facility] LABORATORY Comment: Supplemental ranges: <140 mg/dL before meals <180 mg/dL all other times of the day Specimen Anatomical Collection Method Collection Time Receive d Time (Source) Location / / Volume Laterality Blood 12/11/2021 7:34 AM 7:34 EDT AM EDT Iker Cuevas MD POINT OF CARE TEST ORDERABLE S Performing Organization Address City/[facility]/[place] [address] (ABNORMAL) POCT Glucose (12/11/2021 5:07 AM EDT) P athologist Signature POC Glucose 208 (H) 65 - 199 [facility] mg/dL [facility], [...] Organization Address City/State/[place] [address] (ABNORMAL) Differential, Automated (12/11/2021 4:28 AM EDT) Patholo gist Method Time Signature Neutrophils % 79.6 % [facility] Neutr Abs (ANC) 7.01 (H) 1.70 - [facility] 6.10 [facility] x10(3)/[facility] LABORATORY Lymphocytes % 9.1 % [facility] Lymphocytes Abs 0.8 (L) 0.9 - 3.2 [facility] x10(3)/[facility] LABORATORY Monocytes % 9.2 % [facility] Monocyte Abs 0.8 0.3 - 0.9 [facility] x10(3)/[facility] LABORATORY Eosinophils % 1.3 % [facility] Eosinophils Abs 0.1 0.0 - 0.4 [facility] x10(3)/[facility] LABORATORY Basophils % 0.5 % [facility] Basophils Abs 0.0 0.0 - 0.1 [facility] x10(3)/[facility] LABORATORY Immature Gran % 0.30 % [facility] [...] 0.03 0.00 - 0.04 x10(3)/mcL [facility] Specimen Anatomical Collection Method Collection Time Receive d Time (Source) Location / / Volume Laterality Blood 12/11/2021 4:28 AM 2 4:37 EDT AM EDT Resulting Agency Comment Spec In Lab Bijan Sun MD HEMATOLOGY ORDERABLES Performing Organization Address City/State/[place] [address] (ABNORMAL) Hemogram (12/11/2021 4:28 AM EDT) Analysis Performed At Patho logist Time Signature WBC 8.8 4.0 - 9.5 [facility] x10(3)/[facility] LABORATORY RBC 4.15 (L) 4.58 - [facility] 5.54 [facility] x10(6)/[facility] LABORATORY Hemoglobin 11.9 (L) 13.7 - [facility] 16.5 g/dL [facility]ORY Hematocrit 36.9 (L) 40.5 - [facility] 48.5 % [facility] LABORATORY MCV 88.9 82.9 - [facility] 93.1 [facility] LABORATORY MCH 28.7 27.5 - [facility] 32.1 pg [facility] LAB[facility]ATORY MCHC 32.2 32.0 - [facility] 35.7 g/dL [facility] LABORATORY Platelets 211 145 - 357 [facility] x10(3)/[facility] LABORATORY RDWSD 48.3 (H) 36.0 - [facility] 45.0 [facility] LABORATORY RDWCV 14.8 (H) 11.4 - [facility] 13.8 % [facility] LABORATORY MPV 9.6 7.6 - 12.9 [facility] LABORATORY nRBC % Auto 0.0 % [facility] nRBC Abs Auto 0.000 0.000 - [facility] 0.000 [facility] x10(3)/[facility] LABORATORY Specimen Anatomical Collection Method Collection Time Receive d Time (Source) Location / / Volume Laterality Blood 12/11/2021 4:28 AM 2 4:37 EDT AM EDT Resulting Agency Comment Spec In Lab Bijan Sun MD HEMATOLOGY ORDERABLES Performing Organization Address City/State/[place] [address] (ABNORMAL) Prothrombin Time (12/11/2021 4:28 AM EDT) athologist Signature PT 17.7 (H) 9.4 - 12.5 [facility] LABORATORY INR 1.6 [facility] Comment: An INR <2.0 [...] Organization Address City/State/[place] [address] (ABNORMAL) BMP w/fasting Glucose (12/11/2021 4:28 AM EDT) athologist Signature Glucose 207 (H) 65 - 99 [facility] Fasting mg/dL [facility] - [...] of Diabetes Mellitus, Position Statement from the [employer]. ??Diabete s Care, Volume 33, [...] - 107 mmol/L [facility] CO2 23 22 - 31 mmol/L [facility] Anion Gap 15 5 - 15 mmol/L [facility] Calcium 8.6 8.5 - 10.5 mg/dL [facility] Estimated GFR 48 (L) >=60 mL/min/1.73 m?? [facility] Comment: This patient? s estimated [...] Organization Address City/State/[place] [address] Magnesium (12/11/2021 4:28 AM EDT) athologist Signature Magnesium 1.04 0.69 - 1.07 [facility] mmol/L [facility] LABORATORY Specimen Anatomical Collection Method Collection Time Receive d Time (Source) Location / / Volume Laterality Blood 12/11/2021 4:28 AM 2 4:37 EDT AM EDT Resulting Agency Comment Spec In Lab Iker Cuevas MD CHEMISTRY ORDERABLES Performing Organization Address City/State/ZIP Code Phon e Number [address] POCT Glucose (12/11/2021 3:58 AM EDT) athologist Signature POC Glucose 189 65 - 199 [facility] mg/dL [facility] - [...] Organization Address City/State/[place] [address] (ABNORMAL) POCT Glucose (12/10/2021 11:45 PM EDT) athologist Signature POC Glucose 205 (H) 65 - 199 [facility] mg/dL [facility] - [...] Organization Address City/State/[place] [address] (ABNORMAL) POCT Glucose (12/10/2021 7:54 PM EDT) athologist Signature POC Glucose 225 (H) 65 - 199 [facility] mg/dL [facility] Comment: Supplemental ranges: <140 mg/dL before meals <180 mg/dL all other times of the day Specimen Anatomical Collection Method Collection Time Receive d Time (Source) Location / / Volume Laterality Blood 12/10/2021 7:54 PM 2 7:54 EDT PM EDT Iker Cuevas MD POINT OF CARE TEST ORDERABLE S Performing Organization Address City/[facility]/ZIP [facility] Phon e Number [address] Potassium (12/10/2021 7:46 PM EDT) athologist Signature Potassium 4.2 3.5 - 5.0 [facility] mmol/L [facility], [...] Cuevas MD CHEMISTRY ORDERABLES Performing Organization Address City/[facility] [place] [address] (ABNORMAL) Basic Metabolic Panel (non-fasting) (12/10/2021 6:12 PM EDT) athologist Signature Glucose Lvl 246 (H) 65 - 199 [facility] mg/dL [facility] Comment: Diabetes: >=200 mg/dL plus symp toms BUN 50 (H) 10 - 20 mg/dL [facility] Creatinine 1.39 0.80 - 1.50 mg/dL [facility] Sodium 138 135 - 145 mmol/L [facility] Potassium Not Perf 3.5 - 5.0 [facility] Comment: Unable to quantitate due [...] - 107 mmol/L [facility] CO2 22 22 - 31 mmol/L [facility] Anion Gap 16 (H) 5 - 15 mmol/L [facility] Calcium 8.3 (L) 8.5 - 10.5 mg/dL [facility] Estimated GFR 49 (L) >=60 mL/min/1.73 m?? [facility] Comment: This patient? s estimated [...] Organization Address City/State/[place] [address] POCT Glucose (12/10/2021 4:59 PM EDT) athologist Signature POC Glucose 158 65 - 199 [facility] mg/dL [facility], [...] Organization Address City/State/[place] [address] (ABNORMAL) POCT Glucose (12/10/2021 12:43 PM EDT) P athologist Signature POC Glucose 241 (H) 65 - 199 [facility] mg/dL [facility]ORY Comment: Supplemental ranges: <140 mg/dL before meals <180 mg/dL all other times of the day Specimen Anatomical Collection Method Collection Time Receive d Time (Source) Location / / Volume Laterality Blood 12/10/2021 12:43 12/10/2021 PM EDT 12:43 PM EDT Iker Cuevas MD POINT OF CARE TEST ORDERABLE S Performing Organization Address City/[facility]/[place] [address] EKG 12 Lead (12/10/2021 11:17 AM EDT) Component Value Ref Range Test Analysis Performed Pathologis t Method Time At Signature Ventricular rate 62 BPM MUSE SYSTEM Atrial Rate 62 BPM MUSE SYSTEM P-R Interval 142 ms MUSE SYSTEM QRS Duration 100 ms MUSE SYSTEM Q-T Interval 434 ms MUSE SYSTEM QTC Calculated 440 ms MUSE SYSTEM (Bezet) Calculated P [place] 34 degrees MUSE SYSTEM Calculated R [place] -39 degrees MUSE SYSTEM Calculated T [place] 92 degrees MUSE SYSTEM INTERPRETATION Normal sinus [...] SYSTEM - 12/10/2021 12:04 PM E DT ?[facility] ? Cardiac Cathete rization/Intervention Report ? Patient Name: Don Fatima. ? Procedure Date: 12/10/2021 ? A #: [id number] ? Primary Physician: Vitaliy Nobles ? Case #: [id number] ? File Name: [id number] ? Catheterization Order Number: [id number] ? [facility] ? Final Report [place], [place] ? Patient Name: ? Don E. Stewa rt ? ID#: ?[id number] ? : ?1945 ? Procedure Date: ? December 10, 2021 ? Case #: ? [id number] ? Room: ? 1 ? Case Physician: [...] as ASA Class III. e [facility] clinical frailty scale is 5: [...] procedure was Urgent. The indication for ?the component lab tech visit is ACS great er than 24 [...] a 3.5 Fr [facility] [place] [facility] [place] 20 Mhz using Manual ?pullback. ??Imaging was [...] a 3.5 Fr [place] [place] [facility] [place] 20 Mhz using Manual ?pullback. ??Imaging was [...] require ?modification of this regimen. C onsult [facility] Interventional Cardiology for ?questions. [...] Procedure Note Vitaliy Nobles MD - 01/14/2022 [facility] Cardiac Catheterization/Intervention Re port Patient Name: Don Fatima Procedure Date: 12/10/2021 A #: [id number] Primary Physician: Vitaliy Nobles Case #: [id number] File Name: [id number] Catheterization Order Number: [id number] [facility] Final Report [place], [place] Patient Name: Don Fatima ID#: [...] e was Urgent. The indication for the component lab tech visit is ACS greater than 24 hrs [...] and a 3.5 Fr [place] [facility] [place] 20 Mhz using Manual pullback. Imaging was [...] and a 3.5 Fr [place] 20 Mhz using Manual pullback. Imaging was [...] require modification of this regimen. Consult D [facility] Interventional Cardiology for questions. The 1 year [...] POC Glucose 262 (H) 65 - 199 [facility] mg/dL [facility], [...] Organization Address City/State/[place] [address] (ABNORMAL) POCT Glucose (12/10/2021 9:48 AM EDT) athologist Signature POC Glucose 279 (H) 65 - 199 [facility] mg/dL [facility], [...] Address City/State/ZIP Code Phon e Number [address] (ABNORMAL) POCT Glucose (12/10/2021 9:07 AM EDT) athologist Signature POC Glucose 268 (H) 65 - 199 [facility] mg/dL [facility], [...] Organization Address City/State/[place] [address] (ABNORMAL) Point of Care Blood Gas Historical (12/10/2021 9:04 AM EDT) [facility] Method Time Signature POC pH 7.40 7.35 - [facility] 7.45 [facility] LABORATORY POC PCO2 40 35 - 45 [facility] LABORATORY POC PO2 63 (L) 85 - 104 [facility] LABORATORY POC Base Excess 0.0 -3.0 - 3.0 [facility] K mmol/L [facility] LABORATORY POC HCO3 24.8 20.0 - [facility] 26.0 [facility] mmol/[facility] LABORATORY POC Sodium 143 135 - 145 [facility] mmol/L [facility]ORY POC Potassium 3.7 3.5 - 5.0 [facility] mmol/L [facility]ORY POC Ionized Ca 1.07 (L) 1.15 - [facility] 1.33 [facility] mmol/[facility] LABORATORY POC Hematocrit 30.0 (L) 40.0 - [facility] 51.0 % [facility] LAB[facility]ORY POC Calc Hgb 10.2 (L) 13.7 - [facility] 17.5 g/dL [facility] LAB[facility]ORY Comment: The calculation of hemoglobin f rom hematocrit assumes a normal MCHC. POC Bgas Loc CC LAB [facility] LABOR[facility]ORY Specimen Anatomical Collection Method Collection Time Receive d Time (Source) Location / / Volume Laterality Blood 12/10/2021 9:04 AM 2 EDT 12:00 PM EDT Ifeanyi Truong MD CHEMISTRY ORDERABLES Performing Organization Address City/[facility]/[place] [address] (ABNORMAL) POCT Glucose (12/10/2021 7:19 AM EDT) athologist Signature POC Glucose 274 (H) 65 - 199 [facility] mg/dL [facility]ORY Comment: Supplemental ranges: <140 mg/dL before meals <180 mg/dL all other times of the day Specimen Anatomical Collection Method Collection Time Receive d Time (Source) Location / / Volume Laterality Blood 12/10/2021 7:19 AM 2 7:19 EDT AM EDT Iker Cuevas MD POINT OF CARE TEST ORDERABLE S Performing Organization Address City/[facility]/[place] [address] Heparin (unfractionated) Level (12/10/2021 4:25 AM EDT) athologist Signature Heparin UFH 0.69 IU/mL Irwin [...] Organization Address City/State/[place] [address] (ABNORMAL) Differential, Automated (12/10/2021 4:25 AM EDT) [facility] Method Time Signature Neutrophils % 79.8 % [facility] Neutr Abs (ANC) 7.47 (H) 1.70 - [facility] 6.10 [facility] x10(3)/[facility] LABORATORY Lymphocytes % 10.6 % [facility] Lymphocytes Abs 1.0 0.9 - 3.2 [facility] x10(3)/[facility] LABORATORY Monocytes % 8.4 % [facility] Monocyte Abs 0.8 0.3 - 0.9 [facility] x10(3)[facility] LABORATORY Eosinophils % 0.6 % [facility] Eosinophils Abs 0.1 0.0 - 0.4 [facility] x10(3)[facility] LABORATORY Basophils % 0.2 % [facility] Basophils Abs 0.0 0.0 - 0.1 [facility] x10(3)/[facility] LABORATORY Immature Gran % 0.40 % [facility] [...] Gran Abs 0.04 0.00 - 0.04 x10(3)/[facility] LABORATORY Specimen Anatomical Collection Method Collection Time Receive d Time (Source) Location / / Volume Laterality Blood 12/10/2021 4:25 AM 4:34 EDT AM EDT Resulting Agency Comment Spec In Lab Morgan [facility]OWN HEMATOLOGY ORDERABLES Performing Organization Address City/State/[place] [address] (ABNORMAL) Hemogram (12/10/2021 4:25 AM EDT) Analysis Performed At Patho logist Time Signature WBC 9.4 4.0 - 9.5 [facility] x10(3)/[facility] LABORATORY RBC 3.81 (L) 4.58 - [facility] 5.54 [facility] x10(6)/[facility] LABORATORY Hemoglobin 11.1 (L) 13.7 - [facility] 16[facility] g/dL [facility] LABORATORY Hematocrit 34.0 (L) 40.5 - [facility] 48.5 % [facility] LABORATORY MCV 89.2 82.9 - [facility] 93.1 [facility] LABORATORY MCH 29.1 27.5 - [facility] 32.1 pg [facility] LABORATORY MCHC 32.6 32.0 - [facility] 35.7 g/dL [facility] LABORATORY Platelets 183 145 - 357 [facility] x10(3)/[facility] LABORATORY RDWSD 49.9 (H) 36.0 - [facility] 45.0 [facility] LABORATORY RDWCV 15.2 (H) 11.4 - [facility] 13.8 % [facility] LABORATORY MPV 9.8 7.6 - 12.9 [facility] LABORATORY nRBC % Auto 0.0 % [facility] nRBC Abs Auto 0.000 0.000 - [facility] 0.000 [facility] x10(3)/[facility] LABORATORY Specimen Anatomical Collection Method Collection Time Receive d Time (Source) Location / / Volume Laterality Blood 12/10/2021 4:25 AM 2 4:34 EDT AM EDT Resulting Agency Comment Spec In Lab Morgan BROWN HEMATOLOGY ORDERABLES Performing Organization Address City/State/[place] [address] (ABNORMAL) Prothrombin Time (12/10/2021 4:25 AM EDT) P athologist Signature PT 20.0 (H) 9.4 - 12.5 [facility] LABORATORY INR 1.7 [facility] Comment: An INR <2.0 [...] Comment Spec In Lab kIer Cuevas MD HEMATOLOGY ORDERABLES Performing Organization Address City/State/[place] [address] (ABNORMAL) BMP w/fasting Glucose (12/10/2021 4:25 AM EDT) P athologist Signature Glucose 210 (H) 65 - 99 [facility] Fasting mg/dL [facility] - [...] of Diabetes Mellitus, Position Statement from the [employer]. ??Diabete s Care, Volume 33, Supplement 1, Jul 2009 BUN 54 (H) 10 - 20 mg/dL [facility] Creatinine 1.52 (H) 0.80 - 1.50 mg/dL [facility] Sodium 140 135 - 145 mmol/L [facility] Potassium 3.9 3.5 - 5.0 mmol/L [facility]ORY Comment: Please note: ??Patients with WBC >100,00 0 may have falsely elevated Potassium levels. ??For accurate Potassium quantif ication in these patients send serum separator tube (gold top) for subsequent determinations. ??Contact the Clinical Chemistry Laboratory if there are any qu estions. Chloride 104 98 - 107 mmol/L [facility] CO2 23 22 - 31 mmol/L [facility] Anion Gap 13 5 - 15 mmol/L [facility] Calcium 8.0 (L) 8.5 - 10.5 mg/dL [facility] Estimated GFR 44 (L) >=60 mL/min/1.73 m?? [facility] Comment: This patient? s estimated [...] Organization Address City/State/[place] [address] Magnesium (12/10/2021 4:25 AM EDT) athologist Signature Magnesium 0.95 0.69 - 1.07 [facility] mmol/L [facility] LABORATORY Specimen Anatomical Collection Method Collection Time Receive d Time (Source) Location / / Volume Laterality Blood 12/10/2021 4:25 AM 2 4:34 EDT AM EDT Resulting Agency Comment Spec In Lab Iker Cuevas MD CHEMISTRY ORDERABLES Performing Organization Address City/[facility]/ZIP Code Phon e Number [address] POCT Glucose (12/10/2021 1:58 AM EDT) athologist Signature POC Glucose 164 65 - 199 [facility] mg/dL [facility] LABORATORY Comment: Supplemental ranges: <140 mg/dL before meals <180 mg/dL all other times of the day Specimen Anatomical Collection Method Collection Time Receive d Time (Source) Location / / Volume Laterality Blood 12/10/2021 1:58 AM 2 1:58 EDT AM EDT Iker Cuevas MD POINT OF CARE TEST ORDERABLE S Performing Organization Address City/[facility]/[place] [address] (ABNORMAL) POCT Glucose (12/09/2021 9:02 PM EDT) athologist Signature POC Glucose 313 (H) 65 - 199 [facility] mg/dL [facility], [...] Address City/State/ZIP [place] [address] Heparin (unfractionated) Level (12/09/2021 [...] Organization Address City/State/[place] [address] (ABNORMAL) Basic Metabolic Panel (non-fasting) (12/09/2021 7:30 PM EDT) athologist Signature Glucose Lvl 372 (H) 65 - 199 [facility] mg/dL [facility] LABORATORY Comment: Diabetes: >=200 mg/dL plus symp toms BUN 56 (H) 10 - 20 mg/dL [facility] LAB[facility]ORY Creatinine 1.75 (H) 0.80 - 1.50 mg/dL [facility] Sodium 138 135 - 145 mmol/L [facility] Potassium 4.2 3.5 - 5.0 mmol/L [facility] Comment: Please note: ??Patients with WBC >100,00 0 may have falsely elevated Potassium levels. ??For accurate Potassium quantif ication in these patients send serum separator tube (gold top) for subsequent determinations. ??Contact the Clinical Chemistry Laboratory if there are any qu estions. Chloride 102 98 - 107 mmol/L [facility] CO2 22 22 - 31 mmol/L [facility] Anion Gap 14 5 - 15 mmol/L [facility] Calcium 8.1 (L) 8.5 - 10.5 mg/dL [facility]ORY Estimated GFR 37 (L) >=60 mL/min/1.73 m?? [facility] Comment: This patient? s estimated [...] Organization Address City/State/[place] [address] (ABNORMAL) POCT Glucose (12/09/2021 6:34 PM EDT) P athologist Signature POC Glucose 408 (H) 65 - 199 [facility] mg/dL [facility] LABORATORY Comment: Supplemental ranges: <140 mg/dL before meals <180 mg/dL all other times of the day Specimen Anatomical Collection Method Collection Time Receive d Time (Source) Location / / Volume Laterality Blood 12/09/2021 6:34 PM 2 6:34 EDT PM EDT Iker Cuevas MD POINT OF CARE TEST ORDERABLE S Performing Organization Address City/[facility]/[place] [address] (ABNORMAL) POCT Glucose (12/09/2021 6:32 PM EDT) athologist Signature POC Glucose 356 (H) 65 - 199 [facility] mg/dL [facility] LAB[facility]ORY Comment: Supplemental ranges: <140 mg/dL before meals <180 mg/dL all other times of the day Specimen Anatomical Collection Method Collection Time Receive d Time (Source) Location / / Volume Laterality Blood 12/09/2021 6:32 PM 2 6:32 EDT PM EDT Iker Cuevas MD POINT OF CARE TEST ORDERABLE S Performing Organization Address City/[facility]/[place] [address] (ABNORMAL) POCT Glucose (12/09/2021 4:19 PM EDT) athologist Signature POC Glucose 347 (H) 65 - 199 [facility] mg/dL [facility] LABORATORY Comment: Supplemental ranges: <140 mg/dL before meals <180 mg/dL all other times of the day Specimen Anatomical Collection Method Collection Time Receive d Time (Source) Location / / Volume Laterality Blood 12/09/2021 4:19 PM 2 4:19 EDT PM EDT Iker Cuevas MD POINT OF CARE TEST ORDERABLE S Performing Organization Address City/[facility]/[place] [address] Heparin (unfractionated) Level (12/09/2021 [...] Cuevas MD HEMATOLOGY ORDERABLES Performing Organization Address City/[facility]/ZIP Code Phon e Number [address] (ABNORMAL) POCT Glucose (12/09/2021 12:02 PM EDT) P athologist Signature POC Glucose 235 (H) 65 - 199 [facility] LABORATORY Comment: Supplemental ranges: <140 mg/dL before meals <180 mg/dL all other times of the day Specimen Anatomical Collection Method Collection Time Receive d Time (Source) Location / / Volume Laterality Blood 12/09/2021 12:02 12/09/2021 PM EDT 12:02 PM EDT Iker Cuevas MD POINT OF CARE TEST ORDERABLE S Performing Organization Address City/[facility]/[place] [address] (ABNORMAL) POCT Glucose (12/09/2021 [...] Organization Address City/State/[place] [address] EKG 12 Lead (12/09/2021 7:57 AM EDT) Component Value Ref Range Test Analysis Performed Pathologis t Method Time At Signature Ventricular rate 101 BPM MUSE SYSTEM Atrial Rate 101 BPM MUSE SYSTEM P-R Interval 150 ms MUSE SYSTEM QRS Duration 112 ms MUSE SYSTEM Q-T Interval 364 ms MUSE SYSTEM QTC Calculated 471 ms MUSE SYSTEM (Bezet) Calculated P [place] 59 degrees MUSE SYSTEM Calculated R [place] -42 degrees MUSE SYSTEM Calculated T [place] 102 degrees MUSE SYSTEM INTERPRETATION Sinus tachycardia Occasional Premature ventricular com plexes MUSE SYSTEM Left axis deviation 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) Abnormal ECG When compared with ECG of 08-DEC-2021 16:40, Premature ventricular complexes are now Present Confirmed by MD Jim, Yoon ([id number]) on 12/10/2021 4:55:06 PM Specimen Anatomical Collection Method Collection Time Receive d Time (Source) Location / / Volume Laterality 12/09/2021 7:57 AM 2 4:55 EDT PM EDT Iker Cuevas MD ECG ORDERABLES Performing Organization Address City/State/ZIP Code Phon e Number MUSE SYSTEM (ABNORMAL) POCT Glucose (12/09/2021 7:28 AM EDT) P athologist Signature POC Glucose 263 (H) 65 - 199 [facility] mg/dL [facility], [...] Organization Address City/State/[place] [address] (ABNORMAL) Hemoglobin A1c (12/09/2021 6:18 AM EDT) Analysis Performed At Patho logist Time Signature Hemoglobin A1C 7.4 (H) 4.3 - 5.6 [facility] LABORATORY Comment: Reference Range: 4.3 - [...] Avg Gluc See note mg/dL [facility] LABORATORY Comment: Estimated Average Glucose not [...] with hemoglobinopathies. Additional resources are available on [facility] ADA website. Macario HAMMOND, Ruthann J, Deysi R, et al. ??Tr anslating the A1C assay into estimated average glucose values. ??Diabetes Care 2008:31(8):9875-3651. Specimen Anatomical Collection Method Collection Time Receive d Time (Source) Location / / Volume Laterality Blood Venous Draw / 12/09/2021 6:18 AM 12/10/19 22 Unknown EDT 12:24 PM EDT Resulting Agency Comment Spec In Lab Migdalia BROWN CHEMISTRY ORDERABLES Performing Organization Address City/State/[facility] [place] [address] (ABNORMAL) Prothrombin Time (12/09/2021 6:18 AM EDT) athologist Signature PT 26.6 (H) 9.4 - 12.5 [facility] LABORATORY INR 2.3 [facility] LABORATORY Comment: An INR <2.0 [...] Organization Address City/State/[place] [address] Heparin (unfractionated) Level (12/09/2021 6:18 AM EDT) athologist Signature Heparin UFH 0.24 IU/mL Irwin [...] Organization Address City/State/[place] [address] (ABNORMAL) Differential, Automated (12/09/2021 6:18 AM EDT) [facility] Method Time Signature Neutrophils % 91.5 % [facility] LABORATORY Neutr Abs (ANC) 15.78 (H) 1.70 - [facility] 6.10 [facility] x10(3)/[facility] LABORATORY Lymphocytes % 2.9 % [facility] LABORATORY Lymphocytes Abs 0.5 (L) 0.9 - 3.2 [facility] x10(3)/[facility] LABORATORY Monocytes % 4.9 % [facility] LABORATORY Monocyte Abs 0.8 0.3 - 0.9 [facility] x10(3)/[facility] LABORATORY Eosinophils % 0.0 % [facility] LABORATORY Eosinophils Abs 0.0 0.0 - 0.4 [facility] x10(3)/[facility] LABORATORY Basophils % 0.2 % [facility] LABORATORY Basophils Abs 0.0 0.0 - 0.1 [facility] x10(3)/[facility] LABORATORY Immature Gran % 0.50 % [facility] LABORATORY Comment: Immature granulocytes(IG's)percentage an d absolute count will include metamyelocytes, myelocytes, and promyelo cytes. Blood smears from CBCs yielding IG's will be scanned manually for concor dance. If this scan disagrees with the automated IG or if promyelocytes are not ed, a manual differential will be performed. Melisa Gran Abs 0.09 (H) 0.00 - 0.04 x10(3)/[facility] LABORATORY Specimen Anatomical Collection Method Collection Time Receive d Time (Source) Location / / Volume Laterality Blood 12/09/2021 6:18 AM 2 6:33 EDT AM EDT Resulting Agency Comment Spec In Lab Morgan BROWN HEMATOLOGY ORDERABLES Performing Organization Address City/[facility]/[place] [address] (ABNORMAL) Hemogram (12/09/2021 6:18 AM EDT) Analysis Performed At Patho logist Time Signature WBC 17.2 (H) 4.0 - 9.5 [facility] x10(3)/[facility] LABORATORY RBC 4.32 (L) 4.58 - [facility] 5.54 [facility] x10(6)/[facility] LABORATORY Hemoglobin 12.6 (L) 13.7 - [facility] 16.5 g/dL [facility] LABORATORY Hematocrit 38.9 (L) 40.5 - [facility] 48.5 % [facility] LABORATORY MCV 90.0 82.9 - [facility] 93.1 [facility] LABORATORY MCH 29.2 27.5 - [facility] 32.1 pg [facility] LABORATORY MCHC 32.4 32.0 - [facility] 35.7 g/dL [facility] LABORATORY Platelets 193 145 - 357 [facility] x10(3)/[facility] LABORATORY RDWSD 50.4 (H) 36.0 - [facility] 45.0 [facility] LABORATORY RDWCV 15.2 (H) 11.4 - [facility] 13.8 % [facility] LABORATORY MPV 9.5 7.6 - 12.9 [facility] LABORATORY nRBC % Auto 0.0 % [facility] LABORATORY nRBC Abs Auto 0.000 0.000 - [facility] 0.000 [facility] x10(3)/[facility] LABORATORY Specimen Anatomical Collection Method Collection Time Receive d Time (Source) Location / / Volume Laterality Blood 12/09/2021 6:18 AM 6:33 EDT AM EDT Resulting Agency Comment Spec In Lab Morgan BROWN HEMATOLOGY ORDERABLES Performing Organization Address City/State/[place] [address] Lipid Panel (Reflex Direct LDL) (12/09/2021 6:18 AM EDT) athologist Signature Chol, Total 105 mg/dL [facility] LABORATORY Comment: Lower Risk: <200 mg/dL Average Risk: 200-239 mg/dL Higher Risk: >fn=289 mg/dL Triglycerides 133 mg/dL [facility] LABORATORY Comment: Average Risk/Lower Risk: <150 mg/dL Borderline High Risk: 150-199 mg/dL High Risk: 200-499 mg/dL Very High Risk: >ec=700 mg/dL HDL 42 mg/dL [facility] LABORATORY Comment: Males: ?? Higher Risk: <40 mg/dL Females: ?? Higher Risk: <50 mg/dL LDL Cholesterol 36 mg/dL [facility] LABORATORY Comment: Lowest Risk: <100 mg/dL Lower Risk: 100-129 mg/dL Borderline High Risk: 130-159 mg/dL High Risk: 160-189 mg/dL Very High Risk: >sz=638 mg/dL Chol/HDL Ratio 2.5 ratio [facility] LABORATORY Lipid Interpretation See Note [facility] LABORATORY Comment: Lipid management should be guided by a p atient? s ASCVD risk, goals and preferences. ACC/AHA Guidelines recommend high intens ity statin if clinical ASCVD or LDL greater than or equal to 190 mg/dL. [email or web address] Adults aged 40-75 with LDL 70-189 mg/dL should have their 10 year ASCVD risk estimated with the ACC/AHA ASCVD risk es timator http://tools.acc.org/AWVIO-Hbws-Lcrhpznd r/ Statin should be discussed if risk [...] Cuevas MD CHEMISTRY ORDERABLES Performing Organization Address [facility] [place] [address] TSH (12/09/2021 6:18 AM EDT) P athologist Signature TSH 1.60 0.27 - 4.20 [facility] mcIU/mL [facility] LABORATORY Comment: Reference Interval (mcIU/mL): Females: ??First Trimester: 0.23-3.88 ??Second Trimester: 0.22-3.90 ??Third Trimester: 0.44-4.66 Specimen Anatomical Collection Method Collection Time Receive d Time (Source) Location / / Volume Laterality Blood 12/09/2021 6:18 AM 2 6:33 EDT AM EDT Resulting Agency Comment Spec In Lab Iker Cuevas MD CHEMISTRY ORDERABLES Performing Organization Address [facility] [place] [address] Hepatic Function Panel (12/09/2021 [...] - 0.3 [facility] mg/dL [facility] LABORATORY Specimen Anatomical Collection Method Collection Time Receive d Time (Source) Location / / Volume Laterality Blood 12/09/2021 6:18 AM 2 6:33 EDT AM EDT Resulting Agency Comment Spec In Lab Iker Cuevas MD CHEMISTRY ORDERABLES Performing Organization Address City/State/[place] [address] (ABNORMAL) BMP w/fasting Glucose (12/09/2021 6:18 AM EDT) P athologist Signature Glucose 235 (H) 65 - 99 [facility] Fasting mg/dL [facility] - [...] of Diabetes Mellitus, Position Statement from the [place] [employer]. ??Diabete s Care, Volume 33, Supplement 1, Jul 2009 BUN 49 (H) 10 - 20 mg/dL [facility] LABORATORY Creatinine 1.33 0.80 - 1.50 mg/dL [facility] LABORATORY Sodium 139 135 - 145 mmol/L [facility] LABORATORY Potassium 4.2 3.5 - 5.0 mmol/L [facility] [...] 31 mmol/L [facility] LABORATORY Anion Gap 17 (H) 5 - 15 mmol/L [facility] LABORATORY Calcium 8.8 8.5 - 10.5 mg/dL [facility] LABORATORY Estimated GFR 52 (L) >=60 mL/min/1.73 m?? [facility] LABORATORY Comment: This patient? s estimated [...] Cuevas MD CHEMISTRY ORDERABLES Performing Organization Address City/[facility]/ZIP Code Phon e Number [address] Magnesium (12/09/2021 6:18 AM EDT) athologist Signature Magnesium 0.81 0.69 - 1.07 [facility] mmol/L [facility] LABORATORY Specimen Anatomical Collection Method Collection Time Receive d Time (Source) Location / / Volume Laterality Blood 12/09/2021 6:18 AM 2 6:33 EDT AM EDT Resulting Agency Comment Spec In Lab Iker Cuevas MD CHEMISTRY ORDERABLES Performing Organization Address City/[facility] [place] [address] (ABNORMAL) Troponin (12/09/2021 6:18 AM EDT) athologist Signature Troponin-T 1.13 (H) 0.00 - [facility] 0.00 ng/mL [facility] [...] additional sample may be indicated. Reference: Third Kempner Definition of Myocardial Infarction. Journal of the [place] [employer] 2012;60:1581-98 Specimen Anatomical Collection Method Collection Time Receive d Time (Source) Location / / Volume Laterality Blood 12/09/2021 6:18 AM 6:33 EDT AM EDT Resulting Agency Comment Spec In Lab Iker Cuevas MD CHEMISTRY ORDERABLES Performing Organization Address City/State/ZIP Code Phon e Number [place] [id number]OS[address]ITAL LAB[address]ORY Drive XR Chest One View [...] who have questions please contact the health acute care registered nurse that requested your imaging first. ? [...] ho have questions please contact the health acute care registered nurse that requested your imaging first. Amber Sanches MD IMG DX ORDERABLES (ABNORMAL) BLOOD GAS 2 ARTERIAL (12/09/2021 5:14 AM EDT) Analysis Performed At Patho logist Time Signature pH Art 7.43 7.35 - [facility] 7.45 [facility] LABORATORY pCO2 Art 36 35 - 45 [facility] LABORATORY pO2 Art 67 (L) 85 - 104 [facility] LABORATORY HCO3 Art 23.4 20.0 - [facility] 26.0 [facility] mmol/L [facility] LABORATORY BE Art -0.9 -3.0 - 3.0 [facility] mmol/L [facility] LABORATORY Hgb Blood Gas 13.2 (L) 13.7 - [facility] 16.5 g/dL [facility] LABORATORY O2HB Art 91.3 (L) 94.0 - [facility] 97.0 % [facility] LABORATORY COHB Art 0.4 % [facility] LABORATORY Comment: Nonsmokers: 0.5-1.5% COHB Smokers: Variable, but usually less than 10% Toxic: 20-30% COHB Lethal: Greater than 60% COHB METHB Art 0.4 <=1.5 % [facility] LABORATORY Na Whole Blood 138 135 - 145 mmol/L [facility] LABORATORY K Whole Blood 4.1 3.5 - 5.0 mmol/L [facility] LABORATORY Comment: Please note: Patients with WBC >100,000 may have falsely elevated Potassium levels. Contact the Clinical Chemistry L aboratory if there are any questions. ICa Whole Blood 1.09 (L) 1.15 - 1.33 mmol/L [facility] LABORATORY Comment: Note: ??Total bilirubin higher than 20 m g/dL may lead to falsely low ionized calcium. CL Whole Blood 104 98 - 107 mmol/L [facility] LABORATORY Gluc Whole Bld 223 (H) 65 - 199 mg/dL [facility] LABORATORY Comment: Diabetes: >=200 mg/dL plus symp toms. Lactate WB 2.7 (H) 0.5 - 2.2 mmol/L [facility] LABORATORY FIO2 Art 35 % [facility] LABORATORY Flow Art 8.0 LPM [facility] LABORATORY PF Ratio Art 191 [facility] LABORATORY Specimen Anatomical Collection Method Collection Time Receive d Time (Source) Location / / Volume Laterality Blood 12/09/2021 5:14 AM 2 5:14 EDT AM EDT Iker Cuevas MD CHEMISTRY ORDERABLES Performing Organization Address City/State/ZIP Code Phon e Number [address] POCT Glucose (12/09/2021 4:46 AM EDT) athologist Signature POC Glucose 198 65 - 199 [facility] mg/dL [facility] - [...] Organization Address City/State/[place] [address] (ABNORMAL) POCT Glucose (12/09/2021 3:01 AM EDT) athologist Signature POC Glucose 225 (H) 65 - 199 [facility] mg/dL [facility] - [...] Address City/State/ZIP Code Phon e Number [address] (ABNORMAL) POCT Glucose (12/08/2021 10:55 PM EDT) athologist Signature POC Glucose 327 (H) 65 - 199 [facility] mg/dL [facility] LABORATORY Comment: Supplemental ranges: <140 mg/dL before meals <180 mg/dL all other times of the day Specimen Anatomical Collection Method Collection Time Receive d Time (Source) Location / / Volume Laterality Blood 12/08/2021 10:55 12/08/2021 PM EDT 10:55 PM EDT kIer Cuevas MD POINT OF CARE TEST ORDERABLE S Performing Organization Address City/[facility]/[place] [address] Heparin (unfractionated) Level (12/08/2021 [...] Cuevas MD HEMATOLOGY ORDERABLES Performing Organization Address City/[facility]/[place] [address] (ABNORMAL) Troponin (12/08/2021 10:03 PM EDT) athologist Signature Troponin-T 0.92 (H) 0.00 - [facility] 0.00 ng/mL [facility] [...] additional sample may be indicated. Reference: Third Kempner Definition of Myocardial Infarction. Journal of the [place] [employer] 2012;60:1581-98 Specimen Anatomical Collection Method Collection Time Receive d Time (Source) Location / / Volume Laterality Blood 12/08/2021 10:03 12/08/2021 PM EDT 10:31 PM EDT Resulting Agency Comment Spec In Lab Iker Cuevas MD CHEMISTRY ORDERABLES Performing Organization Address City/State/[place] [address] (ABNORMAL) POCT Glucose (12/08/2021 8:22 PM EDT) athologist Signature POC Glucose 429 (H) 65 - 199 [facility] mg/dL [facility], [...] Organization Address City/State/[place] [address] (ABNORMAL) POCT Glucose (12/08/2021 7:06 PM EDT) athologist Signature POC Glucose 442 (H) 65 - 199 [facility] mg/dL [facility] LABORATORY Comment: Supplemental ranges: <140 mg/dL before meals <180 mg/dL all other times of the day Specimen Anatomical Collection Method Collection Time Receive d Time (Source) Location / / Volume Laterality Blood 12/08/2021 7:06 PM 2 7:06 EDT PM EDT Iker Cuevas MD POINT OF CARE TEST ORDERABLE S Performing Organization Address City/[facility]/ZIP Code Phon e Number [address] Magnesium (12/08/2021 6:02 PM EDT) athologist Signature Magnesium 0.86 0.69 - 1.07 [facility] mmol/L [facility] LABORATORY Specimen Anatomical Collection Method Collection Time Receive d Time (Source) Location / / Volume Laterality Blood 12/08/2021 6:02 PM 2 6:36 EDT PM EDT Resulting Agency Comment Spec In Lab Iker Cuevas MD CHEMISTRY ORDERABLES Performing Organization Address City/State/[place] [address] (ABNORMAL) Basic Metabolic Panel (non-fasting) (12/08/2021 6:02 PM EDT) athologist Signature Glucose Lvl 392 (H) 65 - 199 [facility] mg/dL [facility], [...] - 107 mmol/L [facility] LABORATORY CO2 20 (L) 22 - 31 mmol/L [facility] LABORATORY Anion Gap 16 (H) 5 - 15 mmol/L [facility] LABORATORY Calcium 8.6 8.5 - 10.5 mg/dL [facility] LABORATORY Estimated GFR 47 (L) >=60 mL/min/1.73 m?? [facility] LABORATORY Comment: This patient? s estimated [...] Organization Address City/State/ZIP Code Phon e Number [place] [id number]OS[address] Drive (ABNORMAL) Differential, Automated (12/08/2021 6:02 PM EDT) [facility] gist Method Time Signature Neutrophils % 89.5 % [facility] LABORATORY Neutr Abs (ANC) 13.97 (H) 1.70 - [facility] 6.10 [facility] x10(3)/[facility] L LABORATORY Lymphocytes % 3.7 % [facility] LABORATORY Lymphocytes Abs 0.6 (L) 0.9 - 3.2 [facility] x10(3)/[facility] LABORATORY Monocytes % 6.1 % [facility] LABORATORY Monocyte Abs 1.0 (H) 0.3 - 0.9 [facility] x10(3)/[facility] LABORATORY Eosinophils % 0.0 % [facility] LABORATORY Eosinophils Abs 0.0 0.0 - 0.4 [facility] x10(3)/[facility] LABORATORY Basophils % 0.2 % [facility] LABORATORY Basophils Abs 0.0 0.0 - 0.1 [facility] x10(3)/[facility] LABORATORY Immature Gran % 0.50 % [facility] LABORATORY Comment: Immature granulocytes(IG's)percentage an d absolute count will include metamyelocytes, myelocytes, and promyelo cytes. Blood smears from CBCs yielding IG's will be scanned manually for concor dance. If this scan disagrees with the automated IG or if promyelocytes are not ed, a manual differential will be performed. Melisa Gran Abs 0.08 (H) 0.00 - 0.04 x10(3)/[facility] LABORATORY Specimen Anatomical Collection Method Collection Time Receive d Time (Source) Location / / Volume Laterality Blood 12/08/2021 6:02 PM 6:36 EDT PM EDT Resulting Agency Comment Spec In Lab Morgan BROWN HEMATOLOGY ORDERABLES Performing Organization Address City/State/[place] [address] (ABNORMAL) Hemogram (12/08/2021 6:02 PM EDT) Analysis Performed At Patho logist Time Signature WBC 15.6 (H) 4.0 - 9.5 [facility] x10(3)/[facility] LABORATORY RBC 4.05 (L) 4.58 - [facility] 5.54 [facility] x10(6)/[facility] LABORATORY Hemoglobin 11.8 (L) 13.7 - [facility] 16.5 g/dL [facility] LABORATORY Hematocrit 35.8 (L) 40.5 - [facility] 48.5 % [facility] LABORATORY MCV 88.4 82.9 - [facility] 93.1 fL [facility] LABORATORY MCH 29.1 27.5 - [facility] 32.1 pg [facility] LABORATORY MCHC 33.0 32.0 - [facility] 35.7 g/dL [facility] LABORATORY Platelets 178 145 - 357 [facility] x10(3)/[facility] LABORATORY RDWSD 49.3 (H) 36.0 - [facility] 45.0 [facility] LABORATORY RDWCV 15.1 (H) 11.4 - [facility] 13.8 % [facility] LABORATORY MPV 10.4 7.6 - 12.9 [facility] LABORATORY nRBC % Auto 0.0 % [facility] LABORATORY nRBC Abs Auto 0.000 0.000 - [facility] 0.000 [facility] x10(3)/[facility] LABORATORY Specimen Anatomical Collection Method Collection Time Receive d Time (Source) Location / / Volume Laterality Blood 12/08/2021 6:02 PM 6:36 EDT PM EDT Resulting Agency Comment Spec In Lab Morgan BROWN HEMATOLOGY ORDERABLES Performing Organization Address City/State/ZIP Code Phon e Number [facility] [place] [address] (ABNORMAL) Troponin (12/08/2021 6:02 [...] additional sample may be indicated. Reference: Third Kempner Definition of Myocardial Infarction. Journal of the [place] [employer] 2012;60:1581-98 Specimen Anatomical Collection Method Collection Time Receive d Time (Source) Location / / Volume Laterality Blood 12/08/2021 6:02 PM 6:36 EDT PM EDT Resulting Agency Comment Spec In Lab Iker Cuevas MD CHEMISTRY ORDERABLES Performing Organization Address City/State/[place] [address] COVID-19 PCR (12/08/2021 5:00 PM EDT) [facility] Method Time Signature SARS-CoV-2 Not Detected Not Detected [facility] RNA PCR [facility] LABORATORY Comment: This result should be interpreted [...] using the Simplexa COVID-19 Direct Assay by [employer] Networkjoi marcum as authorized by the FDA issued [...] fact sheets at the following FDA website: https://www.fda.gov/medical-devices/uhqlojdhclf-ruyevpy-8847-aqaub-84-syiggljkn- qri-ekfrursriqrkpz-sssotcm-devices/pkdsu-tvqktmyupyx-enqn SARS-CoV-2 Source [employer] Swab [facility] LABORATORY Specimen (Source) Anatomical Collection Method Collection Time Re ceived Time Location / / Volume Laterality Nasopharyngeal Swab 12/08/2021 5:00 12/08 PM EDT 6:03 PM EDT Comment: Symptoms->Surveillance Resulting Agency Comment Spec In Lab Iker Cuevas MD MICROBIOLOGY - GENERAL ORDER ROBSON Performing Organization Address City/State/[place] [address] EKG 12 Lead (12/08/2021 4:40 PM EDT) Component Value Ref Range Test Analysis Performed Pathologis t Method Time At Signature Ventricular rate 78 BPM MUSE SYSTEM Atrial Rate 78 BPM MUSE SYSTEM P-R Interval 152 ms MUSE SYSTEM QRS Duration 96 ms MUSE SYSTEM Q-T Interval 396 ms MUSE SYSTEM QTC Calculated 451 ms MUSE SYSTEM (Bezet) Calculated P [place] 44 degrees MUSE SYSTEM Calculated R [place] -31 degrees MUSE SYSTEM Calculated T [place] 124 degrees MUSE SYSTEM INTERPRETATION Normal sinus [...] POC Glucose 400 (H) 65 - 199 [facility] mg/dL [facility], [...] Organization Address City/State/[place] [address] documented in this encounter [...] Given 11/23 10:30 AM EDT 300 mcg (AFRICAN STUDIES PROFESSOR) ONCE PRN, Starting on Wed12/10/21 at 1030, [...] 35 Units (CANCELED) 2032 (Given - Provider: aBrbara Boogie RN) 35 Units, Subcutaneous, NIGHTLY, First [...] Emma Garcia RN)1847 (Given - Provider: Emma aGrcia RN)2042 (Given - Provider: Derrick Galeas RN) [...] Garcia RN) 0001 (Given - Provider: Derrick aGleas, VAMSI)0631 (Given - Provider: Derrick Galeas, VAMSI) [...] DO NOT CRUSH OR OPEN, Routine 1230 ([facility] Unhold - Provider: Admin Adt) polyethylene glycoL (Miralax) packet 17 g 0805 (SEP Ho ld - Provider: Admin Adt - Reason: Transfer to a Procedural area)0900 (Not Given - Provider: Emma Garcia RN - Reason: Transfer to a Procedural area)1230 ([facility] Unhold - Provider: Admin Adt) 0844 (Given [...] Sean ine 0.9) flush 5 mL 0805 ([facility] Hold - Provider: Admin Adt - Reason: Transfer to a Procedural area)0900 (Not Given - Provider: Emma Garcia RN - Reason: Transfer to a Procedural area)1230 ([facility] Unhold - Provider: Admin Adt)1746 (Given - [...] 12/12/2021 acetaminophen (Tylenol) tablet 650 mg 0805 ([facility] Hold - Provider: Admin Adt - Reason: Transfer to a Procedural area)1230 ([facility] Unhold - Provider: Admin Adt) [...] Routine bisacodyL (Dulcolax) suppository 10 mg 0805 ([facility] Hold - Provider: Admin Adt - Reason: Transfer to a Procedural area)1230 ([facility] Unhold - Provider: Admin Adt) 10 mg, Rectal, DAILY PRN, Starting on 12/09/21 at 1629, Until Wed12/12/21 at 1312, Constipation, Routine dextrose 10% infusion(Linked Group 2) 0805 ([facility] Hold - Provider: Admin Adt - Reason: Transfer to a Procedural area)1230 ([facility] Unhold - Provider: Admin Adt) 250 [...] (Intra-Procedure), Routine niCARdipine (Cardene) (100 mcg/mL) dilution (AFRICAN STUDIES PROFESSOR) (CANCELED) 1030 (Given - Provider: Vitaliy Nobles [...] med 250 mL, at 1,000 mL/hr, Intravenous, VCIENTE RY 30 MIN PRN, Starting on Wed12/08/21 [...] & nbsp; For persistent hypoglycemia, con medical assistant longer-acting treatment for the duration of [...]
Routine documented in this encounter Care Teams Client Support Consultant Relationship Specialty Start Date End Date Lovely Vicente MD PCP - General 04/16/[address] [place] [address] documented as of this encounter
--- OUTSIDE RECORDS SUMMARY | 2022-03-04 14:50 | XMS_ITS | Encounter Summary ---
:1945 Author Organization [facility] [place] [address] Care Team Providers Name Role Phone Lovely Vicente MD Primary Care Provider Encounter Details Date Type Department Care Team Description 04/16/2021 Laboratory Appointment Lab 3L [facility] systolic [facility] [place] [id number] Social History Tobacco Use Types Packs/Day Years [...] Vitaliy Nobles MD [facility] CARDIOLOGY [place], [place] [address] (Wo rk) 06/10/2022 Office Visit Dermatology Laura Scherer MD [facility] DR TE[address] GR-DERMAT OLOGY [place], [place] [address] (Wo rk) documented as of [...] athologist Signature ProBNP 523 (H) <=124 pg/mL [facility] Specimen Anatomical Collection Method Collection Time Receive d Time (Source) Location / / Volume Laterality Blood 04/16/2021 9:58 AM EDT 10:02 AM EDT Resulting Agency Comment Spec In Lab Zulma Plunkett MD CHEMISTRY ORDERABLES Performing Organization Address City/State/[place] [address] (ABNORMAL) Basic Metabolic Panel (non-fasting) (04/16/2021 9:58 AM EDT) athologist Signature Glucose Lvl 77 65 - 199 [facility] mg/dL [facility] Comment: Diabetes: >=200 mg/dL plus symp toms BUN 23 (H) 10 - 20 mg/dL [facility] Creatinine 1.26 0.80 - 1.50 mg/dL [facility] [...] estions. Chloride 103 98 - 107 mmol/L [facility] CO2 28 22 - 31 mmol/L [facility] Anion Gap 9 5 - 15 mmol/L [facility] Calcium 9.3 8.5 - 10.5 mg/dL [facility] Estimated GFR 55 (L) >=60 mL/min/1.73 m?? [facility] [...] Organization Address City/State/[place] [address] documented in this encounter Visit Diagnoses Diagnosis Chronic systolic heart failure documented in this encounter Care Teams Brush Or Broom Cutter Relationship Specialty Start Date End Date Lovely Vicente MD PCP - General 04/16/[address] [place] [address] documented as of this encounter
--- OUTSIDE RECORDS SUMMARY | 2022-03-04 14:50 | XMS_ITS | Encounter Summary ---
:1945 Author Organization [facility] [place] [address] Care Team Providers Name Role Phone Lovely Vicente MD Primary Care Provider Encounter Details Date Type Department Care Team Description 08/26/2018 Transcribe Orders Laboratory Lovely Vicente, Deferred diagnosis [facility] on axis I [address] [address] [place], [place] [phone] [address] Social History Tobacco Use Types Packs/Day Years [...] Nobles MD [facility] ER DR TDAEO [place], [place] [address] (Wo rk) 06/10/2022 Office Visit Dermatology Laura Scherer MD [facility] DR TE[address] GR-DERMAT OLOGY [place], [place] [address] (Wo rk) documented as of this encounter Visit Diagnoses Diagnosis Deferred diagnosis on axis I Other unknown and unspecified cause of m orbidity or mortality documented in this encounter Care Teams Business Sales Consultant Relationship Specialty Start Date End Date Lovely Vicente MD PCP - General 04/16/15 [address] [place] [address] documented as of this encounter
--- OUTSIDE RECORDS SUMMARY | 2022-03-04 14:50 | XMS_ITS | Encounter Summary ---
:1945 [place] [address] Care Team Providers Name Role Phone Lovely Vicente MD Primary Care Provider Encounter Details Date Type Department Care Team Description 07/12/2019 Office Visit Dermatology at Selina Garcia, Rigoberto Yarbrough (actinic keratosis); MD SHAY Quick III (seborrheic keratosis); [address] [facility] Multiple benign nevi; [place] [address] History of melanoma [phone] [facility] [place], [place] [address] Social History Tobacco Use Types [...] MD [facility] [address] T[address] [place], [place] [address] (Wo rk) 06/10/2022 Office Visit Dermatology Laura Scherer MD [facility] DR [address]-DERMAT OGY [place], [place] [address] (Wo rk) documented as of this encounter Visit Diagnoses Diagnosis AK (actinic keratosis) Actinic keratosis SK (seborrheic keratosis) Other seborrheic keratosis Multiple benign nevi Benign neoplasm of skin, site unspecifie d History of melanoma Personal history of malignant melanoma o f skin documented in this encounter Care Teams Information Systems Specialist Relationship Specialty Start Date End Date Lovely Vicente MD PCP - General 04/16/[address] [place] [address] documented as of this encounter
--- OUTSIDE RECORDS SUMMARY | 2022-03-04 14:50 | XMS_ITS | Encounter Summary ---
:1945 Author Organization [facility] [place] [address] Care Team Providers Name Role Phone Lovely Vicente MD Primary Care Provider Encounter Details Date Type Department Care Team Description 12/07/2021 [place] [address] Social History Tobacco Use Types Packs/Day [...] MD [facility] [address] T[address] [place], [place] [address] (Wo rk) 06/10/2022 Office Visit Dermatology Laura Scherer MD [facility] [address] TE[address] GR-DERMAT [place], [place] [address] (Wo rk) documented as [...] on filedocumented in this encounter Care Teams Open Winder Relationship Specialty Start Date End Date Lovely Vicente MD PCP - General 04/16/[address] [place] [address] documented as of this encounter
--- OUTSIDE RECORDS SUMMARY | 2022-03-04 14:50 | XMS_ITS | Encounter Summary ---
:1945 Author Organization [facility] [place] [address] Care Team Providers Name Role Phone Lovely Vicente MD Primary Care Provider Encounter Details Date Type Department Care Team Description 12/07/2021 Ancillary Procedure Radiology Library at Lovely Candelaria MD [facility] [address] [phone] (Wo lissa) [address] [phone] Social History Tobacco Use Types Packs/Day Years [...] [facility] ER [address] TADEO [place], [place] [address] (Wo rk) 06/10/2022 Office Visit Dermatology Luara Scherer MD [facility] ER DR TEJA GR-DERMAT OLOGY [place], [place] [address] (Wo rk) documented as of [...] Organization Address City/State/ZIP Code Phon e Number [place], [place] documented in this encounter Visit Diagnoses Not on filedocumented in this encounter Care Teams Director Of Content And Programming Relationship Specialty Start Date End Date Lovely Vicente MD PCP - General 04/16/[address] [place] [address] documented as of this encounter
--- OUTSIDE RECORDS SUMMARY | 2022-03-04 14:50 | XMS_ITS | Encounter Summary ---
:1945 Author Organization [facility] Address [facility] [place] [address] Care Team Providers Name Role Phone Lovely Vicente MD Primary Care Provider Encounter Details Date Type Department Care Team Description 01/02/2020 Office Visit Dermatology at Rigoberto Forman ctinic keratoses; Abdelrahman HOOPER MD History of melanoma; [address] [facility] History of dysplastic nevus; [place] [address] Multiple benign nevi; [phone] [facility] Seborrheic yossi [place]; RD-DERMATOLGY Skin exam for malignant neoplasm [place], [place] [address] Social History Tobacco Use Types [...] Rigoberto Garcia MD Section of Dermatology [facility] documented in this encounter Plan of Treatment Upcoming Encounters Date Type Specialty Care Team Description 03/26/2022 Office Visit Cardiology Vitaliy Nobles MD [facility] [address] [place], [place] [address] (Wo rk) 06/10/2022 Office Visit Dermatology Laura Scherer MD [facility] DR TEJA GR-DERMAT OLOGY [place], [place] [address] (Wo rk) documented as of [...] skin documented in this encounter Care Teams Ranch Supervisor Relationship Specialty Start Date End Date Lovely Vicente MD PCP - General 04/16/[address] [place] [address] documented as of this encounter
--- OUTSIDE RECORDS SUMMARY | 2022-03-04 14:50 | XMS_ITS | Encounter Summary ---
:1945 Author Organization [facility] [place] [address] Care Team Providers Name Role Phone Lovely Vicente MD Primary Care Provider Encounter Details Date Type Department Care Team Description 12/07/2021 Telephone Cardiology Eddi Briceño Jr., [facility] Jorge [place] [address] [facility] [phone] CARDIOLOGY DEPT [place], [place] [address] (Wo rk) Social History [...] [facility] Referring Provider: Marisela Dean, SILL WORKER [address] [place] [address] Don Veda Kushal 76 y.o. w / [...] bpm, LAFB, poor R wave progression, septal RI, and lateral STD, overall no significantchange from [...] MD [facility] [address] [place], [place] [address] (Mikayla alcaraz) 06/10/2022 Office Visit Dermatology Laura Scherer MD [facility] DR TEJA GR-DERMAT OGY [place], [place] [address] (Wo rk) documented as of this encounter Visit Diagnoses Not on filedocumented in this encounter Care Teams Bi Technical Lead Relationship Specialty Start Date End Date Lovely Vicente MD PCP - General 04/16/[address] [place] [address] documented as of this encounter
--- OUTSIDE RECORDS SUMMARY | 2022-03-04 14:50 | XMS_ITS | Encounter Summary ---
:1945 Author Organization [place] [address] Care Team Providers Name Role Phone Lovely Vicente MD Primary Care Provider Encounter Details Date Type Department Care Team Description 11/07/2019 TH Visit Cardiology at [facility] Danette Maxwell (arteriosclerotic heart disease); (TeleHealth) [facility] STACIE Gomes Cardiomyopathy, ischemic; Drive [facility] S/P CABG x 3; [place], [place] MARIA VICTORIA (obstructive sleep apnea) on CPAP [phone] CARDIOLOGY [phone] [place], [place] [address] Social History Tobacco Use Types [...] regurgitation present. 07/07/2019 - 07/21/2019 Zio Patch Medical Economics Consultant The patient had a minimum heart rate [...] at last check 6. Post-op atrial fibrillation [id number] (CHF, HTN, DM, vascular disease, thromboembolism) Amiodarone discontinued Continue coumadin INR managed by PCP 7. PAD 08/06/2017: Right 1st, 2nd, 3rd toe amputation 08/11/2017: Left??femoral arterial access, RLE??angiogram, Balloon angioplasty of R PT with Eleazar 2.5 x 80 10/25/2017: right popliteal-pedal bypass at [facility] Continue Coumadin 8. Hypothyrodism S/p thyroidectomy [...] Cardiology Vitaliy Nobles MD [facility] [address] [place], [place] [address] (Wo rk) 06/10/2022 Office Visit Dermatology Laura Scherer MD [facility] DR [address]-DERMAT [place], [place] [address] (Wo rk) documented as of this encounter Visit Diagnoses Diagnosis ASHD (arteriosclerotic heart disease) Coronary atherosclerosis of unspecified type of vessel, havasupai or graft Cardiomyopathy, ischemic Other specified forms of chronic ischemi c heart disease S/P CABG x 3 Postsurgical aortocoronary bypass status MARIA VICTORIA (obstructive sleep apnea) on CPAP Obstructive sleep apnea (adult) (pediatr ic) documented in this encounter Care Teams Celluloid Trimmer Relationship Specialty Start Date End Date Lovely Vicente MD PCP - General 04/16/[address] [place] [address] [address] [place] [address] documented as of this encounter
--- OUTSIDE RECORDS SUMMARY | 2022-03-04 14:51 | XMS_ITS | Encounter Summary ---
:1945 Author Organization [facility] [place] [address] Care Team Providers Name Role Phone Lovely Vicente MD Primary Care Provider Reason for Visit Reason Comments Skin Check Encounter Details Date Type Department Care Team Description 07/06/2018 Office Visit Dermatology at Teja Garcia, Rigoberto Yarbrough (actinic keratosis); MD SHAY Quick III (seborrheic keratosis); [address] [facility] History of melanoma; [place] [address] Skin exam for malignant neoplasm [phone] [facility] [place], [place] [address] Social History Tobacco Use Types [...] Rigoberto Garcia MD Section of Dermatology [facility] documented in this encounter Plan of Treatment Upcoming Encounters Date Type Specialty Care Team Description 03/26/2022 Office Visit Cardiology Vitaliy Nobles MD [facility] ER DR TADE[address] [place], [place] [address] (Wo rk) 06/10/2022 Office Visit Dermatology Laura Scherer MD [facility] DR TEJA GR-DERMAT [place], [place] [address] (Wo rk) documented as of this encounter Visit Diagnoses Diagnosis AK (actinic keratosis) Actinic keratosis SK (seborrheic keratosis) Other seborrheic keratosis History of melanoma Personal history of malignant melanoma o f skin Skin exam for malignant neoplasm Screening for malignant neoplasm of the skin documented in this encounter Care Teams Straddle Bug Driver Relationship Specialty Start Date End Date Lovely Vicente MD PCP - General 04/16/[address] [place] [address] documented as of this encounter
--- OUTSIDE RECORDS SUMMARY | 2022-03-04 14:51 | XMS_ITS | Encounter Summary ---
:1945 Author Organization [facility] [place] [address] Care Team Providers Name Role Phone Lovely Vicente MD Primary Care Provider Encounter Details Date Type Department Care Team Description 08/19/2017 Hospital Encounter XRay at [facility] Martha Teague, S/P CABG x [address] [facility] [place] [address] [place] [address] RD [phone] [facility] [place], [place] [address] (Wo rk) Social History [...] Vitaliy Nobles MD [facility] CARDIOLOGY [place], [place] [address] (Wo rk) 06/10/2022 Office Visit Dermatology Laura Scherer MD [facility] DR [address]-DERMAT OLOGY [place], [place] [address] (Wo rk) documented as [...] status documented in this encounter Care Teams Track Laminating Machine Tender Relationship Specialty Start Date End Date Lovely Vicente MD PCP - General 04/16/[address] [place] [address] documented as of this encounter
--- OUTSIDE RECORDS SUMMARY | 2022-03-04 14:51 | XMS_ITS | Encounter Summary ---
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 Post-op atrial fibrillation [id number] (CHF, HTN, DM, vascular disease, thromboembolism) Amiodarone discontinued Continue coumadin INR managed by PCP. 2.1 today 7. PAD 08/06/2017: Right 1st, 2nd, 3rd toe amputation 08/11/2017: Left??femoral arterial access, RLE??angiogram, Balloon angioplasty of R PT with Eleazar 2.5 x 80 10/25/2017: right popliteal-pedal bypass at [facility] 8. Hypothyrodism S/p thyroidectomy for [...] MD [facility] [address] T[address] [place], [place] [address] (Wo rk) 06/10/2022 Office Visit Dermatology Laura Scherer MD [facility] DR TEJA GR-DERMAT OLOGY [place], [place] [address] (Wo rk) documented as of this encounter Results Lipid Panel (08/15/2018 8:04 AM EST) athologist Signature Chol, Total 75 mg/dL [facility] Comment: Lower Risk: <200 mg/dL Average Risk: 200-239 mg/dL Higher Risk: >ax=733 mg/dL Triglycerides 185 mg/dL [facility] Comment: Average Risk/Lower Risk: <150 mg/dL Borderline High Risk: 150-199 mg/dL High Risk: 200-499 mg/dL Very High Risk: >tu=038 mg/dL HDL 32 mg/dL [facility] Comment: Males: ?? Higher Risk: <40 mg/dL Females: ?? HIgher Risk: <50 mg/dL LDL Cholesterol 6 mg/dL [facility] Comment: Lowest Risk: <100 mg/dL Lower Risk: 100-129 mg/dL Borderline High Risk: 130-159 mg/dL High Risk: 160-189 mg/dL Very High Risk: >bx=044 mg/dL Chol/HDL Ratio 2.3 ratio [facility] Lipid Interpretation See Note [facility] Comment: Lipid management should be guided by a p atient? s ASCVD risk, goals and preferences. ACC/AHA Guidelines recommend high intens ity statin if clinical ASCVD or LDL greater than or equal to 190 mg/dL. http://TheCrowdurl.com/GJJ-SLJ-Swobrtgme Adults aged 40-75 with LDL 70-189 mg/dL should have their 10 year ASCVD risk estimated with the ACC/AHA ASCVD risk es timator http://tools.acc.org/TRXEF-Uziz-Aixgqnkx r/ Statin should be discussed if risk [...] Organization Address City/State/[place] [address] (ABNORMAL) Basic Metabolic Panel (non-fasting) (08/15/2018 8:04 AM EST) P athologist Signature Glucose Lvl 116 65 - 199 [facility] mg/dL [facility] Comment: Diabetes: >=200 mg/dL plus symp toms BUN 21 (H) 10 - 20 mg/dL [facility] Creatinine 1.08 0.80 - 1.50 mg/dL [facility] Sodium 144 135 - 145 [...] mmol/L [facility] Calcium 9.0 8.5 - 10.5 mg/dL [facility] Estimated GFR 68 >=60 mL/min/1.73 m?? [facility] Comment: The eGFR was calculated using the CKD-EP I equation. As with all creatinine based estimates of kidney function, eGFR values calculated with the CKD-EPI equation are not accurate in patients wi th acute kidney failure, extremes of body mass or the acutely ill. http://[employer] [place]/[facility] – TULSAnkf eGFR 79 >=60 mL/min/1.73 m?? [facility] Comment: The eGFR was calculated using the CKD-EP I equation. As with all creatinine based estimates of kidney function, eGFR values calculated with the CKD-EPI equation are not accurate in patients wi th acute kidney failure, extremes of body mass or the acutely ill. http://[employer] [place]/DHMCnkf Specimen Anatomical Collection Method Collection Time Receive d Time (Source) Location / / Volume Laterality Blood specimen 08/15/2018 8:04 AM 019 8:20 (specimen) EST AM EST Resulting Agency Comment Spec In Lab Danette Eliseo Hans QUINONES CHEMISTRY ORDERABLES Performing Organization Address City/State/ZIP Code Phon e Number [address] (ABNORMAL) pro-Brain Natriuretic Peptide (08/15/2018 8:04 AM EST) P athologist Signature ProBNP 1,797 (H) <=125 [facility] pg/mL [facility] Specimen Anatomical Collection Method Collection Time Receive d Time (Source) Location / / Volume Laterality Blood specimen 08/15/2018 8:04 AM 019 8:20 (specimen) EST AM EST Resulting Agency Comment Spec In Lab Danette Eliseo Hans QUINONES CHEMISTRY ORDERABLES Performing Organization Address City/State/[place] [address] documented in this encounter Visit Diagnoses Diagnosis Chronic systolic heart failure Cardiomyopathy, ischemic Other specified forms of chronic ischemi c heart disease ASCVD (arteriosclerotic cardiovascular d isease) Unspecified cardiovascular disease Essential hypertension Unspecified essential hypertension MARIA VICTORIA on CPAP Obstructive sleep apnea (adult) (pediatr ic) documented in this encounter Care Teams Photographic Equipment Inspector Relationship Specialty Start Date End Date Lovely Vicente MD PCP - General 04/16/[address] [place] [address] documented as of this encounter
--- OUTSIDE RECORDS SUMMARY | 2022-03-04 14:51 | XMS_ITS | Encounter Summary ---
:1945 Author Organization [facility] [place] [address] Care Team Providers Name Role Phone Lovely Vicente MD Primary Care Provider Reason for Referral Consultation (Routine) - Specialty Diagnoses / Procedures Referred By Contact Refer red To Contact [facility] Diagnoses Atheroembolism of foot, right Delayed surgical wound healing, subsequent encounter Aurelia Rivera PA [address] [facility] [place] [address] Referral ID Status Reason Start Date Expiration Date Visits V isits Requested Authorized [id number] Consult, 09/08/2017 03/07/2018 1 1 Test & Treat Reason for Visit Reason Comments Wound Check My foot hurts Encounter Details Date Type Department Care Team Description 09/07/2017 Office Visit Vascular Surgery at MiguelAurelia PA Atheroembolism of foot, right; [facility] [address] [facility] Delayed surgical wound healing, subseque nt encounter [facility] [place] [phone] Social History Tobacco Use Types Packs/Day Years [...] at home for VAC dressing changes from [facility]. Since his last visit his right forefoot wound [facility] [...] performed by Manny Mcknight MD at [facility] MAIN OR ??? PRO AMPUTATION FOOT, TRANSMETATARSAL Right 08/09/2017 AMPUTATION, TRANSMETATARSAL (WRVU 12.71) performed by Yonathan Smith MD at [facility] MAIN OR ??? PRO CABG, ARTERIAL, SINGLE N/A 07/07/2017 @CABG, USING ARTERIAL GRAFT;SINGLE ARTERIAL GRAFT (WRVU 33.75) performed by Yuan Retana MD at [facility] MAIN OR ??? PRO CABG, ARTERY-VEIN, TWO N/A 07/07/2017 @CABG, TWO VENOUS GRAFTS & ARTERIAL GRAFT (WRVU 7.93) performed by Yuan Retana MD at [facility] MAIN OR ??? PRO COLONOSCOPY, REMV LESN, SNARE 01/16/2014 COLONOSCOPY, POLYPECTOMY, REMOVAL LESION BY SNARE performed by Nohemi Jaimes MD at [facility] ENDOSCOPY ??? PRO DRESSING CHANGE UNDER ANESTHESIA Right 08/11/2017 (MSURG) DRESSING CHANGE (FOR OTHER THAN IVAN) UNDER ANES. (WRVU 0.86) performed by Lamar Smith MD at [facility] MAIN OR ??? PRO ENDOSCOPY W/VIDEO-ASST VEIN HARVEST, CABG Right 07/07/2017 ENDOSCOPIC HARVEST VEIN(S) FOR CABG (WRVU 0.31) performed by Yuan Retana MD at [facility] MAIN OR ??? PRO THYROIDECTOMY 03/28/2013 THYROIDECTOMY, TOTAL OR COMPLETE performed by Manny Mcknight MD at [facility] OR Social Hx: Social History Substance [...] MD [facility] [address] [place], [place] [address] (Wo rk) 06/10/2022 Office Visit Dermatology Laura Scherer MD [facility] [address] [place], [place] [address] (Wo rk) Scheduled Referrals Name Type Priority Associated Diagnoses Order S chedule Referral to Wound Outpatient Referral Routine Atheroembolism o f foot, Ordered: Clinic right 09/08/2017 Delayed surgical wound healing, subsequent encounter documented as of this encounter Visit Diagnoses Diagnosis Atheroembolism of foot, right Delayed surgical wound healing, subseque nt encounter documented in this encounter Care Teams Head Holder Relationship Specialty Start Date End Date Lovely Vicente MD PCP - General 04/16/[address] [place] [address] documented as of this encounter
--- OUTSIDE RECORDS SUMMARY | 2022-03-04 14:51 | XMS_ITS | Encounter Summary ---
:1945 Author Organization [facility] [place] [address] Care Team Providers Name Role Phone Lovely Vicente MD Primary Care Provider Encounter Details Date Type Department Care Team Description 11/29/2017 Office Visit Cardiology at [facility] Annette Maxwell Chronic systolic congestive heart failure; [facility] A, SEMICONDUCTOR LAB TECHNICIAN ASCVD (arteriosclerotic cardiovascular d isease); [facility] Cardiomyopathy, ischemic; [place], [place] PAD (peripheral artery disease) [phone] CARDIOLOGY [phone] [place], [place] [address] Social History Tobacco Use Types [...] in this encounter Progress Notes Annette Maxwell, SEMICONDUCTOR LAB TECHNICIAN - 11/29/2017 9:20 AM EDT ID and [...] 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 [...] left greater saphenous vein (done at [facility]), debridement of [...] Nobles MD [facility] [address] [place], [place] [address] (Wo rk) 06/10/2022 Office Visit Dermatology Laura Scherer MD [facility] DR [address] OLOG[address] [place], [place] [address] (Wo rk) documented as of this encounter Results Arterial Duplex Leg, Unil (11/29/2017 10:32 AM EDT) Component Value Ref Test Analysis Performed At [facility] Range Method Time Signature VB Text Department: Vascular Surgery Lab VASCUBASE Report Patient: [id number] (GREGORY HOANG) CPT: 98553 ICD10: I72.4;I73.9 Referring Physician: ANNETTE MAXWELL ?? [...] Glucose Lvl 217 (H) 65 - 199 [facility] mg/dL [facility] Comment: Diabetes: >=200 mg/dL plus symp toms BUN 26 (H) 10 - 20 mg/dL [facility] Creatinine 0.96 0.80 - 1.50 mg/dL [facility] Sodium 137 135 - 145 mmol/L [facility] Potassium 4.1 3.5 - 5.0 mmol/L [facility] [...] [facility] Calcium 8.5 8.5 - 10.5 mg/dL [facility] Estimated GFR >60 >=60 [facility] Comment: The reported eGFR should be multiplied b y 1.2 for patients. The MDRD is not an appropriate measure o f renal function for patients with body mass extremes or in patients with acute kidney failure. http://[employer].Swivel/DHnkdep http://[employer]/DHMCnkf Specimen Anatomical Collection Method Collection Time Receive d Time (Source) Location / / Volume Laterality Blood specimen 11/29/2017 8:22 AM 018 8:29 (specimen) EDT AM EDT Resulting Agency Comment Spec In Lab Annette Maxwell APRN CHEMISTRY ORDERABLES Performing Organization Address City/State/ZIP [place] [address] (ABNORMAL) pro-Brain Natriuretic Peptide (11/29/2017 8:22 AM EDT) athologist Signature ProBNP 1,769 (H) <=125 [facility] pg/mL [facility] Specimen Anatomical Collection Method Collection Time Receive d Time (Source) Location / / Volume Laterality Blood specimen 11/29/2017 8:22 AM 018 8:29 (specimen) EDT AM EDT Resulting Agency Comment Spec In Lab Annette Maxwell STACIE CHEMISTRY ORDERABLES Performing Organization Address City/State/ZIP [place] [address] documented in this encounter Visit Diagnoses Diagnosis Chronic systolic congestive heart failur e Chronic systolic heart failure ASCVD (arteriosclerotic cardiovascular d isease) Unspecified cardiovascular disease Cardiomyopathy, ischemic Other specified forms of chronic ischemi c heart disease PAD (peripheral artery disease) Peripheral vascular disease, unspecified documented in this encounter Care Teams Ruffling Machine Operator Relationship Specialty Start Date End Date Lovely Vicente MD PCP - General 04/16/[address] [place] [address] documented as of this encounter
--- OUTSIDE RECORDS SUMMARY | 2022-03-04 14:51 | XMS_ITS | Encounter Summary ---
:1945 [address] [facility] [place] [address] Care Team Providers Name Role Phone Lovely Vicente MD Primary Care Provider Reason for Referral Diagnostic Test (Routine) - Specialty Diagnoses / Procedures Referred By Contact Refer red To Contact Cardiology Diagnoses Chronic systolic heart failure Danette Maxwell APRN [facility] Non-Inv Card Lab Procedures Echocardiogram Transthoracic(Leb) [facility] [place] [phone] [place] [address] Referral ID Status Reason Start Date Expiration Visits Visits Date Requested Authorized [id number] Specialty 08/15/2018 08/15/2018 1 1 Service Requested Reason for Visit Diagnostic Test (Routine) - Specialty Diagnoses / Procedures Referred By Contact Nawaf owen To Contact Cardiology Diagnoses Chronic systolic heart failure Danette Maxwell APRN [facility] Non-Inv Card Lab Procedures Echocardiogram Transthoracic(Leb) [facility] [place] [address] [place] [address] Referral ID Status Reason Start Date Expiration Visits Visits Date Requested Authorized [id number] Specialty 08/15/2018 08/15/2018 1 1 Service Requested Encounter Details Date Type Department Care Team Description 08/15/2018 Hospital Encounter Non-Invasive Danette Maxwell Chron ic systolic Cardiology Lab Barbara Gomes APRN heart failure [facility] [place] [address] [place] [phone] [address] (Work) [phone] Social History Tobacco Use Types Packs/Day Years [...] Vitaliy Nobles MD [facility] CARDIOLOGY [place], [place] 0[address] (Wo rk) 06/10/2022 Office Visit Dermatology Laura Scherer MD [facility] [address] [place], [place] [address] (Wo rk) documented as of [...] Mccollum ? (Age): 1945(73y) Med Rec#: ? [id number] ?Sex: ?M ? Site Loc: ? [facility] ?Ht / Wt: ??172(cm)/81(kg) Pt. Loc: ?Echo Lab ?BSA: ?1.94 Study Date: ?? 08/15/2018 ?Pt. Type: Outpatient Tape: ? Referring: MARY ELLEN Reading: Scott Ortega ([id number]) Nut Steamer: Laura Sargent Diagnosis: *Chronic systolic (congestive) heart [...] E-wave Vmax ?1.2 ?m/sec ? MV deceleration gjep126.4 ? msec ? MV A-wave Vmax ?0.7 [...] ? Mid-Inferior ?Hypokinetic ? Mid-Inferoseptal ?Hypokinetic ? Paxton-Septal ? Akinetic ? Paxton-Anterior ? Hypokinetic ? Paxton-Lateral ?Akinetic ? Paxton-Inferior ? Hypokinetic ? Paxton-Tip ?Akinetic ? This report has been electronically sign ed by: _ Scott Ortega M.D. ? 08/15/2018 08:17:26 Images reviewed and interpretation elvie hwang [facility] Cardiac Ultrasound Laboratory Procedure Note Scott Ortega MD - 08/15/2018Format ting of this note might be different from the original. Procedure: Transthoracic Echocardiogram Patient: NATALYA MCBRIDE(Age): [birth year]73y) Med Rec#: [id number] Sex: M Site Loc: [facility] Ht / Wt: 172(cm)/81(kg) Pt. Loc: Echo Lab BSA: 1.94 Study Date: 08/15/2018 Pt. Type: Outpati ent Tape: Referring: MARY ELLEN Reading: Scott Ortega ([id number]) Nut Steamer: Laura Sargent Diagnosis: *Chronic systolic (congestive) heart [...] MV E-wave Vmax 1.2 m/sec MV deceleration ftjp670.4 msec MV A-wave Vmax 0.7 m/sec MV [...] Akinetic Mid-Posterolateral Akinetic Mid-Inferior Hypokinetic Mid-Inferoseptal Hypokinetic Paxton-Septal Akinetic Paxton-Anterior Hypokinetic Paxton-Lateral Akinetic Paxton-Inferior Hypokinetic Paxton-Tip Akinetic This report has been electronically sign ed by: _ Scott Ortega M.D. 08/15/2018 08:17: 26 Images reviewed and interpretation verif ied [facility] Cardiac Ultrasound Laboratory Danette Maxwell [...] Routine documented in this encounter Care Teams Optical Glass Inspector Relationship Specialty Start Date End Date Lovely Vicente MD PCP - General 04/16/15 [address] [facility] [place] [address] documented as of this encounter
--- OUTSIDE RECORDS SUMMARY | 2022-03-04 14:51 | XMS_ITS | Encounter Summary ---
:1945 Author Organization [facility] [place] [address] Care Team Providers Name Role Phone Lovely Vicente MD Primary Care Provider Encounter Details Date Type Department Care Team Description 08/30/2017 [facility] ischemia P[facility] [address] [place] VASCULAR SURGERY [address] [place] [address] [phone] Social History Tobacco Use Types Packs/Day Years [...] Smith MD - 08/30/2017 2:00 PM EST [facility] staff: Patient returns. He is doing [...] Vitaliy Nobles MD [facility] [address] [place], [place] [address] (Wo rk) 06/10/2022 Office Visit Dermatology Laura Scherer MD [facility] DR [address] [place], [place] [address] (Wo rk) documented as of this encounter Visit Diagnoses Diagnosis Critical lower limb ischemia Unspecified circulatory system disorder documented in this encounter Care Teams Podiatric Assistant Relationship Specialty Start Date End Date Lovely Vicente MD PCP - General 04/16/[address] [place] [address] documented as of this encounter
--- OUTSIDE RECORDS SUMMARY | 2022-03-04 14:51 | XMS_ITS | Encounter Summary ---
:1945 Author Organization [facility] [place] [address] Care Team Providers Name Role Phone Lovely Vicente MD Primary Care Provider Reason for Visit Reason Onset Date Comments VNA Calls 08/30/2017 Encounter Details Date Type Department Care Team Description 08/30/2017 Telephone Vascular Surgery at [facility] Cora Reid RN VNA Calls [facility] [place] [address] Social History Tobacco Use Types Packs/Day [...] 08/30/2017 11:16 AM EST Caller: Alfonso at [facility] [phone] Reason for call: Changing his wound vac [...] who had been in contact with [facility]'s Wound Care Nurse who advised him to [...] Nobles MD [facility] [address] [place], [place] [address] (Wo rk) 06/10/2022 Office Visit Dermatology Laura Scherer MD [facility] DR [address]MAT [facility] [place], [place] [address] (Wo rk) documented as of this encounter Visit Diagnoses Not on filedocumented in this encounter Care Teams Supervisor Carbon Electrodes Relationship Specialty Start Date End Date Lovely Vicente MD PCP - General 04/16/[address] [place] [address] documented as of this encounter
--- OUTSIDE RECORDS SUMMARY | 2022-03-04 14:51 | XMS_ITS | Encounter Summary ---
:1945 Author Organization [facility] [place] [address] Care Team Providers Name Role Phone Lovely Vicente MD Primary Care Provider Encounter Details Date Type Department Care Team Description 08/15/2018 Laboratory Lab 3L Barbara Chronic systoli c heart failure; Appointment [facility] ASCVD (ar teriosclerotic cardiovascular disease) [place] [address] Social History Tobacco Use Types [...] [facility] [address] [place], [place] [address] (Wo rk) 06/10/2022 Office Visit Dermatology Laura Scherer MD [facility] [address] OLOG[address] [place], [place] [address] (Wo rk) documented as of [...] Signature Glucose Lvl 116 65 - 199 [facility] mg/dL [facility] Comment: Diabetes: >=200 mg/dL plus [...] estions. Chloride 102 98 - 107 mmol/L [facility] CO2 27 22 - 31 mmol/L [facility] Anion Gap 15 [...] of body mass or the acutely ill. http://Bubble Motion/DHMCnkf eGFR 79 >=60 mL/min/1.73 m?? [facility] Comment: The eGFR was calculated using the CKD-EP I equation. As with all creatinine based estimates of kidney function, eGFR values calculated with the CKD-EPI equation are not accurate in patients wi th acute kidney failure, extremes of body mass or the acutely ill. http://B[employer] Motion/DHMCnkf Specimen Anatomical Collection Method Collection Time Receive d Time (Source) Location / / Volume Laterality Blood specimen 08/15/2018 8:04 AM 019 8:20 (specimen) EST AM EST Resulting Agency Comment Spec In Lab Danettebrock Maxwell APRN CHEMISTRY ORDERABLES Performing Organization Address City/State/[place] [address] Lipid Panel (08/15/2018 8:04 AM EST) P athologist Signature Chol, Total 75 mg/dL [facility] Comment: Lower Risk: <200 mg/dL Average Risk: 200-239 mg/dL Higher Risk: >fk=453 mg/dL Triglycerides 185 mg/dL [facility] Comment: Average Risk/Lower Risk: <150 mg/dL Borderline High Risk: 150-199 mg/dL High Risk: 200-499 mg/dL Very High Risk: >xh=329 mg/dL HDL 32 mg/dL [facility] Comment: Males: ?? Higher Risk: <40 mg/dL Females: ?? HIgher Risk: <50 mg/dL LDL Cholesterol 6 mg/dL [facility] Comment: Lowest Risk: <100 mg/dL Lower Risk: 100-129 mg/dL Borderline High Risk: 130-159 mg/dL High Risk: 160-189 mg/dL Very High Risk: >uh=387 mg/dL Chol/HDL Ratio 2.3 ratio [facility] Lipid Interpretation See Note [facility] Comment: Lipid management should be guided by a p atient? s ASCVD risk, goals and preferences. ACC/AHA Guidelines recommend high intens ity statin if clinical ASCVD or LDL greater than or equal to 190 mg/dL. http://tinyurl.com/KAK-WTI-Lmeowjkas Adults aged 40-75 with LDL 70-189 mg/dL should have their 10 year ASCVD risk estimated with the ACC/AHA ASCVD risk es timator http://tools.acc.org/ZVQME-Vjwp-Jkdppjxr r/ Statin should be discussed if risk [...] Agency Comment Spec In Lab Danette Maxwell STEAM DISTRIBUTION SUPERVISOR CHEMISTRY ORDERABLES Performing Organization Address City/State/Z[place] [address] (ABNORMAL) pro-Brain Natriuretic Peptide (08/15/2018 8:04 AM EST) P athologist Signature ProBNP 1,797 (H) <=125 [facility] pg/mL [facility] Specimen Anatomical Collection Method Collection Time Receive d Time (Source) Location / / Volume Laterality Blood specimen 08/15/2018 8:04 AM 019 8:20 (specimen) EST AM EST Resulting Agency Comment Spec In Lab Danette Maxwell APRN CHEMISTRY ORDERABLES Performing Organization Address City/State/ZIP [place] [address] documented in this encounter Visit Diagnoses Diagnosis Chronic systolic heart failure ASCVD (arteriosclerotic cardiovascular d isease) Unspecified cardiovascular disease documented in this encounter Care Teams Planner Internship Relationship Specialty Start Date End Date Lovely Vicente MD PCP - General 04/16/[address] [place] [address] (work) documented as of this encounter
--- OUTSIDE RECORDS SUMMARY | 2022-03-04 14:51 | XMS_ITS | Encounter Summary ---
:1945 Author Organization [facility] [place] [address] Care Team Providers Name Role Phone Lovely Vicente MD Primary Care Provider Encounter Details Date Type Department Care Team Description 10/05/2017 Telephone Cardiology at [facility] Tamiko Sin MD [facility] [place] [address] CARDIOLOGY DEPT [phone] [place], [place] [address] (Wo rk) Social History Tobacco [...] 03/26/2022 Office Visit Cardiology Vitaliy Nobles MD [facility] ER [address] [place], [place] [address] (Wo rk) 06/10/2022 Office Visit Dermatology Laura Scherer MD [facility] [address] [place], [place] [address] (Wo rk) documented as of this encounter Visit Diagnoses Not on filedocumented in this encounter Care Teams Continuous Improvement Specialist Relationship Specialty Start Date End Date Lovely Vicente MD PCP - General 04/16/[address] [place] [address] [address] [facility] [address] [place] [address] documented as of this encounter
--- OUTSIDE RECORDS SUMMARY | 2022-03-04 14:51 | XMS_ITS | Encounter Summary ---
:1945 Author Organization [facility] [place] [address] Care Team Providers Name Role Phone Lovely Vicente MD Primary Care Provider Encounter Details Date Type Department Care Team Description 08/25/2017 Telephone Pain Management at [facility] [place], [place] [address] Social History Tobacco Use Types Packs/Day [...] EST [facility] Preauthorization Request Patient: Dno Fatima [id number] Fax received from [employer] denying prior authorization for Lidocaine Patches prescribed by Barbra Soares APRN. RX insurance plan: [employer] RX insurance telephone: [phone] Patient Diagnosis: right foot pain secondary to PVD and ischemia ? Previous medications attempted: Tylenol, Tramadol, Dilaudid Authorization/Reference number: [id number] _x_ denied, provider and patient informed _x_ appeal initiated by provider, patient informed Angeles Rodrigez, RN documented in this encounter Plan of Treatment Upcoming Encounters Date Type Specialty Care Team Description 03/26/2022 Office Visit Cardiology Vitaliy Nobles MD [facility] ER [address] [place], [place] [address] (Wo rk) 06/10/2022 Office Visit Dermatology Laura Scherer MD [facility] [address] [place], [place] [address] (Wo rk) documented as of this encounter Visit Diagnoses Not on filedocumented in this encounter Care Teams Professor Of Architecture Relationship Specialty Start Date End Date Lovely Vicente MD PCP - General 04/16/[address] [place] [address] documented as of this encounter
--- OUTSIDE RECORDS SUMMARY | 2022-03-04 14:51 | XMS_ITS | Encounter Summary ---
:1945 [place] [address] Care Team Providers Name Role Phone Lovely Vicente MD Primary Care Provider Encounter Details Date Type Department Care Team Description 11/29/2017 Hospital Encounter Radiology Library at Estefany Maxwell Pain [facility] FABRIC[facility] SPECIAL ITEMS [facility] [place] [address] CARDIOLOGY [phone] [place], [place] [address] (Wo rk) Social History Tobacco [...] [facility] [address] [place], [place] [address] (Wo rk) 06/10/2022 Office Visit Dermatology Laura Scherer MD [facility] [address] OLOG[address] [place], [place] [address] (Wo rk) documented [...] Time Received Time / Laterality Volume Narrative [facility] - 12/28/2017 11:07 AM EDT This exam is for storage only and is aut o-finalizing. Danette Maxwell APRN IMMarc FILM LIBRARY ORDERABLES Performing Organization Address City/State/ZIP Code Phon e Number [place], [place] documented in this encounter Visit Diagnoses Diagnosis Pain Generalized pain documented in this encounter Care Teams Turf And Grounds Supervisor Relationship Specialty Start Date End Date Lovely Vicente MD PCP - General 04/16/[address] [facility] [place] [address] documented as of this encounter
--- OUTSIDE RECORDS SUMMARY | 2022-03-04 14:51 | XMS_ITS | Encounter Summary ---
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 [...] by Dr. Espino On IV antibiotics at [facility] Today: Mr. Fatima is [...] continue to see Dr. Bains well at [facility] and follow his wound on his right lower extremity. And she will continue to direct antibiotic treatment. Ihave asked that the echocardiogram results be faxed to Dr. Zurita at [facility]. 1. ASCVD Continue ASA, BB [...] and bone removal by Dr. Aguero at [facility]. Currently receiving IV antibiotics at [facility] ? Plan: 1. A [...] MD [facility] [address] T[address] [place], [place] [address] (Wo rk) 06/10/2022 Office Visit Dermatology Laura Scherer MD [facility] DR TEJA GR-DERMAT [facility] [place], [place] [address] (Wo rk) documented as of this encounter Results (ABNORMAL) Basic Metabolic Panel (non-fasting) (10/07/2017 8:48 AM EDT) athologist Signature Glucose Lvl 99 65 - 199 [facility] mg/dL [facility] Comment: Diabetes: >=200 mg/dL plus symp toms BUN 27 (H) 10 - 20 mg/dL [facility] Creatinine 1.07 0.80 - 1.50 mg/dL [facility] [...] [facility] Estimated GFR >60 >=60 [facility] Comment: The reported eGFR should be multiplied b y 1.2 for patients. The MDRD is not an appropriate measure o f renal function for patients with body mass extremes or in patients with acute kidney failure. http://[employer]/DHnkdep http://[employer]/DHMCnkf Specimen Anatomical Collection Method Collection Time Receive d Time (Source) Location / / Volume Laterality Blood specimen 10/07/2017 8:48 AM 018 8:50 (specimen) EDT AM EDT Resulting Agency Comment Spec In Lab Danette Maxwell APRN CHEMISTRY ORDERABLES Performing Organization Address City/[facility]/[place]IP [place] [address] (ABNORMAL) pro-Brain Natriuretic Peptide (10/07/2017 8:48 AM EDT) P athologist Signature ProBNP 1,170 (H) <=125 [facility] pg/mL [facility] Specimen Anatomical Collection Method Collection Time Receive d Time (Source) Location / / Volume Laterality Blood specimen 10/07/2017 8:48 AM 018 8:50 (specimen) EDT AM EDT Resulting Agency Comment Spec In Lab Danette Maxwell APRN CHEMISTRY ORDERABLES Performing Organization Address City/State/[place] [address] documented in this encounter Visit Diagnoses Diagnosis Chronic systolic heart failure S/P CABG x 3 Postsurgical aortocoronary bypass status On amiodarone therapy Atrial fibrillation, unspecified type ASCVD (arteriosclerotic cardiovascular d isease) Unspecified cardiovascular disease documented in this encounter Care Teams Chicken Hatchery Helper Relationship Specialty Start Date End Date Lovely Vicente MD PCP - General 04/16/[address] [place] [address] documented as of this encounter
--- OUTSIDE RECORDS SUMMARY | 2022-03-04 14:51 | XMS_ITS | Encounter Summary ---
:1945 Author Organization [facility] [place] [address] Care Team Providers Name Role Phone Lovely Vicente MD Primary Care Provider Encounter Details Date Type Department Care Team Description 11/29/2017 Laboratory Lab 3L Barbara Wiseman systoli c congestive heart failure; Appointment [facility] ASCVD (ar teriosclerotic cardiovascular disease); Hospital Cardiomyopathy, [place] [address] Social History Tobacco Use Types [...] Nobles MD [facility] ER DR TADE[address] [place], [place] [address] (Wo rk) 06/10/2022 Office Visit Dermatology Laura Scherer MD [facility] ER DR [address]-DERMAT [place], [place] [address] (Wo rk) documented as [...] Signature PT 23.0 (H) 9.4 - 12.5 [facility] LABORATORY INR 2.1 [facility] Comment: An INR [...] City/State/[place] [address] (ABNORMAL) Basic Metabolic Panel (non-fasting) (11/29/2017 8:22 AM EDT) athologist Signature Glucose Lvl 217 (H) 65 - 199 [facility] mg/dL [facility] Comment: Diabetes: >=200 mg/dL plus symp toms BUN 26 (H) 10 - 20 mg/dL [facility] Creatinine 0.96 0.80 - 1.50 mg/dL [facility] Sodium 137 135 - 145 mmol/L [facility] Potassium 4.1 3.5 - 5.0 mmol/L [facility] Estimated GFR >60 >=60 [facility] Comment: The reported eGFR should be multiplied b y 1.2 for patients. The MDRD is not an appropriate measure o f renal function for patients with body mass extremes or in patients with acute kidney failure. http://[employer]/DHnkdep http://[employer]/DHMCnkf Specimen Anatomical Collection Method Collection Time Receive d Time (Source) Location / / Volume Laterality Blood specimen 11/29/2017 8:22 AM 018 8:29 (specimen) EDT AM EDT Resulting Agency Comment Spec In Lab Danette Maxwell APRN CHEMISTRY ORDERABLES Performing Organization Address City/State/[place] [address] (ABNORMAL) pro-Brain Natriuretic Peptide (11/29/2017 8:22 AM EDT) P athologist Signature ProBNP 1,769 (H) <=125 [facility] pg/mL [facility] Specimen Anatomical Collection Method Collection Time Receive d Time (Source) Location / / Volume Laterality Blood specimen 11/29/2017 8:22 AM 018 8:29 (specimen) EDT AM EDT Resulting Agency Comment Spec In Lab Danettebrock Maxwell APRN CHEMISTRY ORDERABLES Performing Organization Address City/State/ZIP Code Phon e Number [address] Lavender Tube HOLD (11/29/2017 8:14 AM EDT) [facility]anning Home gist Method Time Signature Lavender Hold Sample in [facility] lab. [facility] Specimen Anatomical Collection Method Collection Time Receive d Time (Source) Location / / Volume Laterality Blood specimen No Charge / 11/29/2017 8:14 AM 018 8:29 (specimen) Unknown EDT AM EDT Lovely Vicente MD HEMATOLOGY ORDERABLES Performing Organization Address City/[facility]/[place] [address] documented in this encounter Visit Diagnoses Diagnosis Chronic systolic congestive heart failur e Chronic systolic heart failure ASCVD (arteriosclerotic cardiovascular d isease) Unspecified cardiovascular disease Cardiomyopathy, ischemic Other specified forms of chronic ischemi c heart disease documented in this encounter Care Teams Tooling Manager Relationship Specialty Start Date End Date Lovely Vicente MD PCP - General 04/16/[address] [place] [address] documented as of this encounter
--- OUTSIDE RECORDS SUMMARY | 2022-03-04 14:51 | XMS_ITS | Encounter Summary ---
:1945 Author Organization [facility] Address [facility] [place] [address] Care Team Providers Name Role Phone Lovely Vicente MD Primary Care Provider Reason for Referral Diagnostic Test (Routine) - Specialty Diagnoses / Procedures Referred By Contact Refer red To Contact Cardiology Diagnoses Chronic systolic heart failure Danette Maxwell APRN [facility] Non-Inv Card Lab Procedures Echocardiogram Transthoracic(Leb) [facility] [place] [address] [place] [address] Referral ID Status Reason Start Date Expiration Visits Visits Date Requested Authorized [id number] Specialty 08/15/2018 08/15/2018 1 1 Service Requested Encounter Details Date Type Department Care Team Description 04/18/2018 Office Visit Cardiology at [facility] Danette Maxwell Chronic systolic heart failu re; [facility] STACIE Gomes On amiodarone therapy; [facility] Ischemic cardiomyopathy; [place], [place] DR ONOFRE (arteriosclerotic cardiovascular d isease) [phone] CARDIOLOGY [phone] [place], [place] [address] Social History Tobacco Use Types Packs/Day Years [...] in this encounter Progress Notes Danette Maxwell, CAFETERIA FOOD SERVER - 04/18/2018 10:40 AM EDT ID and [...] 81 10/25/2017: right popliteal-pedal bypass at [facility] ? Plan: 1. A review of [...] Vitaliy Nobles MD [facility] CARDIOLOGY [place], [place] [address] (Wo rk) 06/10/2022 Office Visit Dermatology Laura Scherer MD [facility] ER DR TEJA GR-DERMAT [place] [address] (Wo rk) documented as of this encounter Results ECHOCARDIOGRAM COMPLETE W CONTRAST (08/15/2018 7:55 AM EST) P athologist Signature EF 35 [facility] Specimen (Source) Anatomical Location Collection Method / Collectio n Time Received Time / Laterality Volume 08/15/2018 Narrative [facility] - 08/15/2018 8:18 AM EST Procedure: ?Transthoracic Echocardiogram Patient: ?NATALYA Mccollum ? (Age): 1945(73y) Med Rec#: ? [id number] ?Sex: ?M ? Site Loc: ? [facility] ?Ht / Wt: ??172(cm)/81(kg) Pt. Loc: ?Echo Lab ?BSA: ?1.94 Study Date: ?? 08/15/2018 ?Pt. Type: Outpatient Tape: ? Referring: MARY ELLEN Reading: Scott Ortega ([id number]) Harness Maker: Laura Sargent Diagnosis: *Chronic systolic (congestive) heart fa ilure (I50.22) BP: ? 157/85 SUMMARY: 1. The left ventricle is mildly dilated. ??Global left ventricular systolic function is moderately reduced. ??The visually estimated left ventricular ejection fraction is 30-35%. There are left ventricular segmental wall motion abnormalities pres ent, as shown in the diagram below. 2. The right ventricle is probably daa l in size. ??Right ventricular global systolic [...] E-wave Vmax ?1.2 ?m/sec ? MV deceleration nlig664.4 ? msec ? MV A-wave Vmax ?0.7 [...] ? Mid-Inferior ?Hypokinetic ? Mid-Inferoseptal ?Hypokinetic ? [place]-Septal ? Akinetic ? [place]-Anterior ? Hypokinetic ? [place]-Lateral ?Akinetic ? [place]-Inferior ? Hypokinetic ? [place]-Tip ?Akinetic ? This report has been electronically sign ed by: _ Scott Ortega M.D. ? 08/15/2018 08:17:26 Images reviewed and interpretation elvie hwang [facility] Cardiac Ultrasound Laboratory Procedure Note Scott Ortega MD - 08/15/2018Format ting of this note might be different from the original. Procedure: Transthoracic Echocardiogram Patient: NATALYA MCBRIDE(Age): [birth year]73y) [facility] Rec#: [id number] Sex: M Site Loc: [facility] Ht / Wt: 172(cm)/81(kg) Pt. Loc: Echo Lab BSA: 1.94 Study Date: 08/15/2018 Pt. Type: Outpati ent Tape: Referring: MARY ELLEN Reading: Scott Ortega ([id number]) Harness Maker: Laura Sargent Diagnosis: *Chronic systolic (congestive) heart [...] MV E-wave Vmax 1.2 m/sec MV deceleration cyzb117.4 msec MV A-wave Vmax 0.7 m/sec MV [...] Akinetic Mid-Posterolateral Akinetic Mid-Inferior Hypokinetic Mid-Inferoseptal Hypokinetic [place]-Septal Akinetic [place]-Anterior Hypokinetic [place]-Lateral Akinetic [place]-Inferior Hypokinetic [place]-Tip Akinetic This report has been electronically sign ed by: _ Scott Ortega M.D. 08/15/2018 08:17: 26 Images reviewed and interpretation elvie ludwigd [facility] Cardiac Ultrasound Laboratory Danette Maxwell APRN ECHO ORDERABLES Performing Organization Address City/State/ZIP Code Phon e Number [facility] (ABNORMAL) Basic Metabolic Panel (non-fasting) (04/18/2018 9:19 AM EDT) P athologist Signature Glucose Lvl 167 65 - 199 [facility] mg/dL [facility] Comment: Diabetes: >=200 mg/dL plus symp toms BUN 18 10 - 20 mg/dL [facility] Creatinine 1.19 0.80 - 1.50 [...] Gap 23 (H) 5 - 15 mmol/L [facility] [...] of body mass or the acutely ill. http://[employer]/DHMCnkf eGFR 70 >=60 mL/min/1.73 m?? [facility] Comment: The eGFR was calculated using the CKD-EP I equation. As with all creatinine based estimates of kidney function, eGFR values calculated with the CKD-EPI equation are not accurate in patients wi th acute kidney failure, extremes of body mass or the acutely ill. http://[employer]/DHMCnkf Specimen Anatomical Collection Method Collection Time Receive d Time (Source) Location / / Volume Laterality Blood specimen 04/18/2018 9:19 AM 018 9:34 (specimen) EDT AM EDT Resulting Agency Comment Spec In Lab Danette Eliseo [place] STACIE CHEMISTRY ORDERABLES Performing Organization Address City/State/ZIP Code Phon e Number [address] (ABNORMAL) pro-Brain Natriuretic Peptide (04/18/2018 9:19 AM EDT) P athologist Signature ProBNP 2,199 (H) <=125 [facility] pg/mL [facility] Specimen Anatomical Collection Method Collection Time Receive d Time (Source) Location / / Volume Laterality Blood specimen 04/18/2018 9:19 AM 018 9:34 (specimen) EDT AM EDT Resulting Agency Comment Spec In Lab Danette Eliseo Hans QUINONES CHEMISTRY ORDERABLES Performing Organization Address City/[facility]/[place] [address] documented in this encounter Visit Diagnoses Diagnosis Chronic systolic heart failure On amiodarone therapy Ischemic cardiomyopathy Other specified forms of chronic ischemi c heart disease ASCVD (arteriosclerotic cardiovascular d isease) Unspecified cardiovascular disease Chronic systolic heart failure documented in this encounter Care Teams Bundle Tier Relationship Specialty Start Date End Date Lovely Vicente MD PCP - General 04/16/[address] [place] [address] documented as of this encounter
--- OUTSIDE RECORDS SUMMARY | 2022-03-04 14:51 | XMS_ITS | Encounter Summary ---
:1945 Author Organization [facility] [place] [address] Care Team Providers Name Role Phone Lovely Vicente MD Primary Care Provider Encounter Details Date Type Department Care Team Description 09/06/2017 Orders Only Vascular Surgery at [facility] Ninfa Clark, [facility] [place] [address] Social History Tobacco Use Types Packs/Day [...] Nobles MD [facility] ER CARDIOLOGY [place], [place] [address] (Wo rk) 06/10/2022 Office Visit Dermatology Laura Scherer MD [facility] ER DR TEJA GR-DERMAT [place], [place] [address] (Wo rk) documented as of this encounter Visit Diagnoses Not on filedocumented in this encounter Care Teams Fuse Coiler Relationship Specialty Start Date End Date Lovely Vicente MD PCP - General 04/16/[address] [place] [address] documented as of this encounter
--- OUTSIDE RECORDS SUMMARY | 2022-03-04 14:51 | XMS_ITS | Encounter Summary ---
:1945 Author Organization [facility] [place] [address] Care Team Providers Name Role Phone Lovely Vicente MD Primary Care Provider Encounter Details Date Type Department Care Team Description 11/29/2017 Hospital Encounter Vascular Lab at [facility] PAD (peripheral [facility], RVT artery [facility]) [place] [phone] Social History Tobacco Use Types Packs/Day Years [...] [facility] ER DR TADEO [place], [place] [address] (Wo rk) 06/10/2022 Office Visit Dermatology Laura Scherer MD [facility] [address]-DERMAT [place], [place] [address] (Wo rk) documented as of this encounter Procedures Procedure Name Priority Date/Time Associated Diagnosis Comme nts ARTERIAL DUPLEX LEG Routine 11/29/2017 10:32 AM PAD (periphera l Results for this UNILA EDT artery disease) procedure ar e in the results section. documented in this encounter Results Arterial Duplex Leg, Unil (11/29/2017 10:32 AM EDT) Component Value Ref Test Analysis Performed At [facility] Range Method Time Signature VB Text Department: Vascular Surgery Lab VASCUBASE Report Patient: [id number] (DON HOANG) CPT: 33255 ICD10: I72.4;I73.9 Referring Physician: DANETTE MAXWELL ?? [...] unspecified documented in this encounter Care Teams Scallop Binder Relationship Specialty Start Date End Date Lovely Vicente MD PCP - General 04/16/[address] [place] [address] documented as of this encounter
--- OUTSIDE RECORDS SUMMARY | 2022-03-04 14:51 | XMS_ITS | Encounter Summary ---
:1945 Author Organization [facility] [place] [address] Care Team Providers Name Role Phone Lovely Vicente MD Primary Care Provider Encounter Details Date Type Department Care Team Description 04/18/2018 Laboratory Appointment Lab 3L [facility] [place] [id number] Social History Tobacco Use Types Packs/Day Years [...] Nobles MD [facility] CARDIOLOGY [place], [place] [address] (Wo rk) 06/10/2022 Office Visit Dermatology Laura Scherer MD [facility] DR [address]DERMAT [place], [place] [address] (Wo rk) documented as of [...] Signature Total Protein 7.6 6.1 - 8.0 [facility] RYAN gm/dL [facility] Albumin 4.0 3.2 - 5.2 [place] RYAN gm/dL [facility] AST 36 0 - 39 [facility] R[facility] unit/L [facility] ALT 27 0 - 55 [facility] RYAN unit/L [facility] Alk Phos 96 40 - 120 [facility] RYAN unit/L [facility] Total 0.7 0.2 - 1.3 [place] Rapportive Bilirubin mg/dL [facility] Bili, Direct 0.1 0.0 - 0.3 [facility] RYAN mg/dL [facility] Specimen Anatomical Collection Method Collection Time Receive d Time (Source) Location / / Volume Laterality Blood specimen Venous Draw / 04/18/2018 9:19 AM 2017 9:44 (specimen) Unknown EDT AM EDT Resulting Agency Comment Spec In Lab Danette Maxwell APRN CHEMISTRY ORDERABLES Performing Organization Address City/[facility] [place] [address] TSH (04/18/2018 9:19 AM EDT) athologist Signature TSH 1.77 0.27 - 4.20 [facility] RYAN mlU/ML [facility] Specimen Anatomical Collection Method Collection Time Receive d Time (Source) Location / / Volume Laterality Blood specimen Venous Draw / 04/18/2018 9:19 AM 2017 9:44 (specimen) Unknown EDT AM EDT Resulting Agency Comment Spec In Lab Danette Maxwell APRN CHEMISTRY ORDERABLES Performing Organization Address City/State/[place] [address] (ABNORMAL) Basic Metabolic Panel (non-fasting) (04/18/2018 9:19 AM EDT) P athologist Signature Glucose Lvl 167 65 - 199 [facility] mg/dL [facility] Comment: Diabetes: >=200 mg/dL plus symp toms BUN 18 10 - 20 mg/dL [facility] Creatinine 1.19 0.80 - 1.50 mg/dL [facility] Sodium 147 (H) 135 - [...] Gap 23 (H) 5 - 15 mmol/L [place] [...] of body mass or the acutely ill. http://Ensa/[facility] – SHAWNEEnkf eGFR 70 >=60 mL/min/1.73 m?? [facility] Comment: The eGFR was calculated using the CKD-EP I equation. As with all creatinine based estimates of kidney function, eGFR values calculated with the CKD-EPI equation are not accurate in patients wi th acute kidney failure, extremes of body mass or the acutely ill. http://Ensa/[facility] – SHAWNEEnkf Specimen Anatomical Collection Method Collection Time Receive d Time (Source) Location / / Volume Laterality Blood specimen 04/18/2018 9:19 AM 018 9:34 (specimen) EDT AM EDT Resulting Agency Comment Spec In Lab Danette Maxwell STACIE CHEMISTRY ORDERABLES Performing Organization Address City/State/[place] [address] (ABNORMAL) pro-Brain Natriuretic Peptide (04/18/2018 9:19 AM EDT) P athologist Signature ProBNP 2,199 (H) <=125 [facility] pg/mL [facility] Specimen Anatomical Collection Method Collection Time Receive d Time (Source) Location / / Volume Laterality Blood specimen 04/18/2018 9:19 AM 018 9:34 (specimen) EDT AM EDT Resulting Agency Comment Spec In Lab Danette Gomes [place] STACIE CHEMISTRY ORDERABLES Performing Organization Address City/[facility]/[place] [address] documented in this encounter Visit Diagnoses Diagnosis Chronic systolic heart failure documented in this encounter Care Teams Electrical Maintenance Man Relationship Specialty Start Date End Date Lovely Vicente MD PCP - General 04/16/[address] [place] [address] documented as of this encounter
--- OUTSIDE RECORDS SUMMARY | 2022-03-04 14:51 | XMS_ITS | Encounter Summary ---
:1945 Author Organization [facility] [place] [address] Care Team Providers Name Role Phone Lovely Vicente MD Primary Care Provider Encounter Details Date Type Department Care Team Description 09/07/2017 Laboratory Appointment Lab 3L [facility] Hx of [facility] [place] [address] Social History Tobacco Use Types Packs/Day Years [...] MD [facility] ER CARDIOLOGY [place], [place] 0[address] (Wo rk) 06/10/2022 Office Visit Dermatology Laura Scherer MD [facility] ER DR TEJA GR-DERMAT OLOGY [place], [place] 0[address] (Wo rk) documented [...] PM EST) athologist Signature Thyroglobulin 1.4 <=54.9 [facility] Comment: Thyroglobulin levels may be [...] Prescott MD CHEMISTRY ORDERABLES Performing Organization Address City/[facility]/ZIP Code Phon e Number [address] TSH (09/07/2017 2:41 PM EST) P athologist Signature TSH 3.93 0.27 - 4.20 [facility] mlU/ML [facility] Specimen Anatomical Collection Method Collection Time Receive d Time (Source) Location / / Volume Laterality Blood specimen 09/07/2017 2:41 PM 018 2:46 (specimen) EST PM EST Resulting Agency Comment Spec In Lab Luz Prescott MD CHEMISTRY ORDERABLES Performing Organization Address City/[facility]/ZIP Code Phon e Number [facility] [place] [address] documented in this encounter Visit Diagnoses Diagnosis Hx of papillary thyroid carcinoma Personal history of malignant neoplasm o f thyroid documented in this encounter Care Teams Chief Ophthalmic Technician Relationship Specialty Start Date End Date Lovely Vicente MD PCP - General 04/16/[address] [place] [address] documented as of this encounter
--- OUTSIDE RECORDS SUMMARY | 2022-03-04 14:51 | XMS_ITS | Encounter Summary ---
:1945 Author Organization [facility] [place] [address] Care Team Providers Name Role Phone Lovely Vicente MD Primary Care Provider Reason for Visit Reason Onset Date Comments Other 11/11/2017 Please call [facility] Encounter Details Date Type Department Care Team Description 11/11/2017 Telephone Cardiology at [facility] Danette Maxwell, Other (Please call [facility] ) [place] [address] CARDIOLOGY [place], [place] 0[address] (Wo rk) Social History Tobacco [...] MD [facility] ER CARDIOLOGY [place], [place] 0375 (Wo rk) 06/10/2022 Office Visit Dermatology Laura Scherer MD [facility] DR TEJA GR-DERMAT [place], [place] 0375 (Wo rk) documented as of this encounter Visit Diagnoses Not on filedocumented in this encounter Care Teams Wafer Fabricator Relationship Specialty Start Date End Date Lovely Vicente MD PCP - General 04/16/15 [facility] [address] [place] [address] documented as of this encounter
--- OUTSIDE RECORDS SUMMARY | 2022-03-04 14:51 | XMS_ITS | Encounter Summary ---
:1945 Author Organization [facility] [place] [address] Care Team Providers Name Role Phone Lovely Vicente MD Primary Care Provider Reason for Referral Diagnostic Test (Routine) - Closed Specialty Diagnoses / Procedures Referred By Contact Refer red To Contact Cardiology Diagnoses Ischemic cardiomyopathy Acute on chronic systolic congestive heart failure Danette Maxwell APRN [facility] Non-Inv Card Lab Procedures Echocardiogram Transthoracic(Leb) [facility] [place] [address] [place] [address] Referral ID Status Reason Start Date Expiration Date Visits V isits Requested Authorized [id number] Closed Specialty 08/30/2017 08/30/2018 1 1 Service Requested Encounter Details Date Type Department Care Team Description 08/26/2017 Office Visit Cardiology at [facility] Danette Maxwell Ischemic cardiomyopathy; [facility] STACIE Gomes Acute on chronic systolic congestive hea rt failure ; Drive [facility] ASCVD (arteriosclerotic card iovascular disease); [place], [place] PAF (paroxysmal atrial fibrillation); [address] CARDIOLOGY PAD (peripheral artery disease) [phone] [place], [place] [address] Social History Tobacco Use Types Packs/Day Years [...] painful and swollen right foot right d/t LITHODUPLICATOR 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 [...] Nobles MD [facility] CARDIOLOGY [place], [place] [address] (Wo rk) 06/10/2022 Office Visit Dermatology Laura Scherer MD [facility] DR TEJA RG-DERMAT OLOGY [place], [place] [address] (Wo rk) documented as of this encounter Results ECHOCARDIOGRAM COMPLETE W CONTRAST (10/07/2017 10:23 AM EDT) athologist Signature EF 45 [facility] Specimen (Source) Anatomical Location Collection Method / Collectio n Time Received Time / Laterality Volume 10/07/2017 Narrative [facility] - 10/07/2017 11:13 AM ED T Procedure: ?Transthoracic Echocardiogram Patient: ?NATALYA Mccollum ? (Age): 1945(72y) Med Rec#: ? [id number] ?Sex: ?M ? Site Loc: ? [facility] ?Ht / Wt: ??173(cm)/82(kg) Pt. Loc: ?Echo Lab ?BSA: ?1.96 Study Date: ?? 10/07/2017 ?Pt. Type: Outpatient Tape: ? Referring: Danette Maxwell Reading: Iker Cuevas ([id number]) Skirt Maker: Yonathan Bocanegra Diagnosis: *ICD-10-PCS Ischemic cardiomyopathy (I2 [...] E-wave Vmax ?1.2 ?m/sec ? MV deceleration [id number] ?msec ? MV A-wave Vmax ?1 ?m/sec [...] ? Mid-Inferior ?Hypokinetic ? Mid-Inferoseptal ?Hypokinetic ? [place]-Septal ? Akinetic ? [place]-Anterior ? Hypokinetic ? [place]-Lateral ?Hypokinetic ? [place]-Inferior ? Hypokinetic ? [place]-Tip ?Akinetic ? This report has been electronically sign ed by: _ Iker Cuevas M.D. ? 10/07/2017 11:12:34 Images reviewed and interpretation verif ied [facility] Cardiac Ultrasound Laboratory Procedure Note Iker Cuevas MD - 10/07/2017Formatti ng of this note might be different from the original. Procedure: Transthoracic Echocardiogram Patient: NATALYA MCBRIDE(Age): [birth year]72y) Med Rec#: [id number] Sex: M Site Loc: [facility] Ht / Wt: 173(cm)/82(kg) Pt. Loc: Echo Lab BSA: 1.96 Study Date: 10/07/2017 Pt. Type: Outpati ent Tape: Referring: Danette Maxwell Reading: Iker Cuevas ([id number]) Skirt Maker: Yonathan Bocanegra Diagnosis: *ICD-10-PCS Ischemic cardiomyopathy (I2 [...] MV E-wave Vmax 1.2 m/sec MV deceleration [id number] msec MV A-wave Vmax 1 m/sec MV [...] Akinetic Mid-Posterolateral Hypokinetic Mid-Inferior Hypokinetic Mid-Inferoseptal Hypokinetic [place]-Septal Akinetic [place]-Anterior Hypokinetic [place]-Lateral Hypokinetic [place]-Inferior Hypokinetic [place]-Tip Akinetic This report has been electronically sign ed by: _ Iker Cuevas M.D. 10/07/2017 11:12 :34 Images reviewed and interpretation elvie hwang [facility] Cardiac Ultrasound Laboratory Danette Maxwell APRN ECHO ORDERABLES Performing Organization Address City/State/ZIP Code Phon e Number [facility] Basic Metabolic Panel (non-fasting) (08/26/2017 2:00 PM EST) P athologist Signature Glucose Lvl 98 65 - 199 [facility] mg/dL [facility] Comment: Diabetes: >=200 mg/dL plus symp toms BUN 20 10 - 20 mg/dL [facility] Creatinine 1.17 0.80 - 1.50 mg/dL [facility] [...] 9.1 8.5 - 10.5 mg/dL KATALINA Yarbrough [facility] Estimated GFR >60 >=60 KATALINA Wyatt [facility] Comment: The reported eGFR should be multiplied b y 1.2 for patients. The MDRD is not an appropriate measure o f renal function for patients with body mass extremes or in patients with acute kidney failure. http://Typerings.com/DHnkdep http://Typerings.com/DHMCnkf Specimen Anatomical Collection Method Collection Time Receive d Time (Source) Location / / Volume Laterality Blood specimen 08/26/2017 2:00 PM 018 2:15 (specimen) EST PM EST Resulting Agency Comment Spec In Lab Danette Maxwell STACIE CHEMISTRY ORDERABLES Performing Organization Address City/State/ZIP [place] [address] (ABNORMAL) pro-Brain Natriuretic Peptide (08/26/2017 2:00 PM EST) P athologist Signature ProBNP 2,373 (H) <=125 [facility] pg/mL [facility] Specimen Anatomical Collection Method Collection Time Receive d Time (Source) Location / / Volume Laterality Blood specimen 08/26/2017 2:00 PM 018 2:15 (specimen) EST PM EST Resulting Agency Comment Spec In Lab Danette Maxwell STACIE CHEMISTRY ORDERABLES Performing Organization Address City/State/ZIP [facility] [place] [address] documented in this encounter [...] failure documented in this encounter Care Teams Prisoner Classification Interviewer Relationship Specialty Start Date End Date Lovely Vicente MD PCP - General 04/16/[address] [place] [address] [address] [place] [address] documented as of this encounter
--- OUTSIDE RECORDS SUMMARY | 2022-03-04 14:51 | XMS_ITS | Encounter Summary ---
:1945 Author Organization [facility] [place] [address] Care Team Providers Name Role Phone Lovely Vicente MD Primary Care Provider Encounter Details Date Type Department Care Team Description 08/19/2017 Office Visit Vascular Surgery at [place], PAD (peripheral artery [facility] POSTBED STITCHER disease) [facility] [address] [place], [place] VASCULAR SURGERY [address] [place] [address] [phone] Social History Tobacco Use Types Packs/Day Years [...] Nobles MD [facility] CARDIOLOGY [place], [place] [address] (Wo rk) 06/10/2022 Office Visit Dermatology Laura Scherer MD [facility] DR TEJA GR-DERMAT OLOGY [place], [place] 0[address] (Wo rk) documented as of this encounter Visit Diagnoses Diagnosis PAD (peripheral artery disease) Peripheral vascular disease, unspecified documented in this encounter Care Teams Millwright Relationship Specialty Start Date End Date Lovely Vicente MD PCP - General 04/16/[address] [place] [address] documented as of this encounter
--- OUTSIDE RECORDS SUMMARY | 2022-03-04 14:51 | XMS_ITS | Encounter Summary ---
:1945 Author Organization [facility] [place] [address] Care Team Providers Name Role Phone Lovely Vicente MD Primary Care Provider Encounter Details Date Type Department Care Team Description 09/06/2017 Telephone Vascular Surgery at [facility] Ninfa Clark, [place] [address] Social History Tobacco Use Types Packs/Day [...] [facility] ER DR TADEO [place], [place] [address] (Wo rk) 06/10/2022 Office Visit Dermatology Laura Scherer MD [facility] DR [address]-DERMAT [place], [place] [address] (Wo rk) documented as of this encounter Visit Diagnoses Not on filedocumented in this encounter Care Teams Database Security Expert Relationship Specialty Start Date End Date Lovely Vicente MD PCP - General 04/16/[address] [place] [address] documented as of this encounter
--- OUTSIDE RECORDS SUMMARY | 2022-03-04 14:51 | XMS_ITS | Encounter Summary ---
:1945 Author Organization [facility] [place] [address] Care Team Providers Name Role Phone Lovely Vicente MD Primary Care Provider Reason for Visit Reason Comments Follow-up Encounter Details Date Type Department Care Team Description 08/19/2017 Office Visit Cardiac Surgery at [place], Jock S/P C ABG (coronary [facility] N, artery bypass graft) [facility] [place]AC[place] [address] SURGERY [phone] [place], [place] [address] Social History Tobacco Use Types [...] We had an opportunity to see Mr. Fatmia today as a follow-up visit from his [...] office. Best personal regards, Yuan [place] MD [phone] documented in this encounter Plan of Treatment Upcoming Encounters Date Type Specialty Care Team Description 03/26/2022 Office Visit Cardiology Vitaliy Nobles MD [facility] MEDICAL [facility] DR TADE[address] [place], [place] [address] (Wo rk) 06/10/2022 Office Visit Dermatology Laura Scherer MD [facility] DR TEJA GR-DERMAT OLOGY [place], [place] 0[address] (Wo rk) documented as of [...] 454 ms MUSE SYSTEM (Bezet) Calculated P [place] 20 degrees MUSE SYSTEM Calculated R [place] -29 degrees MUSE SYSTEM Calculated T [place] 121 degrees MUSE SYSTEM INTERPRETATION Normal sinus rhythm MUSE SYSTEM Inferior infarct (cited on or before 25-JAN-2013) Anterior 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) T wave abnormality, consider lateral ischemia Abnormal ECG When compared with ECG of 06-AUG-2017 12:37, No signif icant change was found Confirmed by MD Luci, Taurus Braun ([id number]) on 08/19/2017 1 0:37:38 PM Specimen Anatomical [...] status documented in this encounter Care Teams Mathematical Statistician Relationship Specialty Start Date End Date Lovely Vicente MD PCP - General 04/16/[address] [place] [address] documented as of this encounter
--- OUTSIDE RECORDS SUMMARY | 2022-03-04 14:51 | XMS_ITS | Encounter Summary ---
:1945 Author Organization [facility] [place] [address] Care Team Providers Name Role Phone Lovely Vicente MD Primary Care Provider Encounter Details Date Type Department Care Team Description 09/16/2017 [place] [address] Social History Tobacco Use Types Packs/Day [...] Nobles MD [facility] CARDIOLOGY [place], [place] 0[address] (Wo rk) 06/10/2022 Office Visit Dermatology Laura Scherer MD [facility] DR TEAJ GR-DERMAT OLOGY [place], [place] [address] (Wo rk) documented as of this encounter Procedures Procedure Name Priority Date/Time Associated Diagnosis Comme [facility] SURGICAL PATHOLOGY Routine 09/16/2017 7:28 AM Res ults for this REPORT EST procedure are i n the results section. documented in this encounter Results Surgical Pathology Report (09/16/2017 7:28 AM EST) Component Value Ref Test Analysis Performed At [facility] Range Method Time Signature Surgical [id number] ? Location: [facility] Pathology [place] Report The signing pathologist has (i) examined [...] Henrique Flower Verified: ??09/24/2017 ?Pathologist Performed at: ??-[facility] Dept. of Pathology, [place], [place] CLINICAL INFORMATION Specimen Submitted: A - [...] Organization Address City/State/ZIP Code Phon e Number [place], [place] [address] [place] [address] documented in this encounter Visit Diagnoses Not on filedocumented in this encounter Care Teams Provider Relations Representative Relationship Specialty Start Date End Date Lovely Vicente MD PCP - General 04/16/[address] [place] [address] documented as of this encounter
--- OUTSIDE RECORDS SUMMARY | 2022-03-04 14:51 | XMS_ITS | Encounter Summary ---
:1945 Author Organization [facility] [place] [address] Care Team Providers Name Role Phone Lovely Vicente MD Primary Care Provider Reason for Referral Diagnostic Test (Routine) - Closed Specialty Diagnoses / Procedures Referred By Contact Refer red To Contact Cardiology Diagnoses Ischemic cardiomyopathy Acute on chronic systolic congestive heart failure Danette Maxwell APRN [facility] Non-Inv Card Lab Procedures Echocardiogram Transthoracic(Leb) [facility] [place] [address] [place] [address] Referral ID Status Reason Start Date Expiration Date Visits V isits Requested Authorized [id number] Closed Specialty 08/30/2017 08/30/2018 1 1 Service Requested Reason for Visit Diagnostic Test (Routine) - Closed Specialty Diagnoses / Procedures Referred By Contact Refer red To Contact Cardiology Diagnoses Ischemic cardiomyopathy Acute on chronic systolic congestive heart failure Danette Maxwell APRN [facility] Non-Inv Card Lab Procedures Echocardiogram Transthoracic(Leb) [facility] [place] [address] [place] [address] Referral ID Status Reason Start Date Expiration Date Visits V isits Requested Authorized [id number] Closed Specialty 08/30/2017 08/30/2018 1 1 Service Requested Encounter Details Date Type Department Care Team Description 10/07/2017 Hospital Encounter Non-Invasive Ischemic cardiomyopathy; Cardiology Lab Barbara Craig on chronic systolic congest[place] [address] Social History Tobacco Use Types Packs/Day [...] Visit Cardiology Vitaliy Nobles MD [facility] ER CARDIOLOGY [place], [place] [address] (Wo rk) 06/10/2022 Office Visit Dermatology Laura Scherer MD [facility] ER DR TEJA GR-DERMAT [place] [address] (Wo rk) documented as of this encounter [...] Veda ? (Age): 1945(72y) Med Rec#: ? [id number] ?Sex: ?M ? Site Loc: ? [facility] ?Ht / Wt: ??173(cm)/82(kg) Pt. Loc: ?Echo Lab ?BSA: ?1.96 Study Date: ?? 10/07/2017 ?Pt. Type: Outpatient Tape: ? Referring: Danette Maxwell Reading: Iker Cuevas ([id number]) Director Of Search Engine Marketing: Yonathan Bocanegra Diagnosis: *ICD-10-PCS Ischemic cardiomyopathy (I2 [...] E-wave Vmax ?1.2 ?m/sec ? MV deceleration [id number] ?msec ? MV A-wave Vmax ?1 ?m/sec [...] ? Mid-Inferior ?Hypokinetic ? Mid-Inferoseptal ?Hypokinetic ? [place]-Septal ? Akinetic ? [place]-Anterior ? Hypokinetic ? [place]-Lateral ?Hypokinetic ? [place]-Inferior ? Hypokinetic ? [place]-Tip ?Akinetic ? This report has been electronically sign ed by: _ Iker Cuevas M.D. ? 10/07/2017 11:12:34 Images reviewed and interpretation verif ied [facility] Cardiac Ultrasound Laboratory Procedure Note Iker Cuevas MD - 10/07/2017Formatti ng of this note might be different from the original. Procedure: Transthoracic Echocardiogram Patient: NATALYA MCBRIDE(Age): [birth year]72y) Med Rec#: [id number] Sex: M Site Loc: [facility] Ht / Wt: 173(cm)/82(kg) Pt. Loc: Echo Lab BSA: 1.96 Study Date: 10/07/2017 Pt. Type: Outpati ent Tape: Referring: Danette Maxwell Reading: Iker Cuevas ([id number]) Director Of Search Engine Marketing: Yonathan Bocanegra Diagnosis: *ICD-10-PCS Ischemic cardiomyopathy (I2 [...] MV E-wave Vmax 1.2 m/sec MV deceleration [id number] msec MV A-wave Vmax 1 m/sec MV [...] Akinetic Mid-Posterolateral Hypokinetic Mid-Inferior Hypokinetic Mid-Inferoseptal Hypokinetic [place]-Septal Akinetic [place]-Anterior Hypokinetic [place]-Lateral Hypokinetic [place]-Inferior Hypokinetic [place]-Tip Akinetic This report has been electronically sign ed by: _ Iker Cuevas M.D. 10/07/2017 11:12 :34 Images reviewed and interpretation elvie hwang [facility] Cardiac Ultrasound Laboratory Danette Maxwell [...] Routine documented in this encounter Care Teams Ignition Expert Relationship Specialty Start Date End Date Lovely Vicente MD PCP - General 04/16/[address] [place] [address] documented as of this encounter
--- OUTSIDE RECORDS SUMMARY | 2022-03-04 14:51 | XMS_ITS | Encounter Summary ---
:1945 [place] [address] Care Team Providers Name Role Phone Lovely Vicente MD Primary Care Provider Encounter Details Date Type Department Care Team Description 08/26/2017 Hospital Encounter Vascular Lab at [facility], Athero embolism of foot, right; [place], [place] Delayed surgi nusrat wound healing, [place] [phone] Social History Tobacco Use Types Packs/Day Years [...] Nobles MD [facility] DR TADEO [place], [place] [address] (Wo rk) 06/10/2022 Office Visit Dermatology Laura Scherer MD [facility] DR [address]-DERMAT OLOGY [place], [place] [address] (Wo rk) documented as of [...] [facility] Range Method Time Signature VB Text Department: Vascular Surgery Lab [facility] Report Patient: [id number] (DON HOANG) CPT: 91227 ICD10: T81.89XA;I75.021 Referring Physician: ELVER BLOOM ?? [...] / Volume Laterality 08/26/2017 2:09 PM EST Elvre Bloom MD VASCULAR ORDERABLES Performing Organization Address City/State/ZIP Code Phon e Number [facility] documented in this encounter Visit Diagnoses Diagnosis Atheroembolism of foot, right Delayed surgical wound healing, initial encounter documented in this encounter Care Teams Quality Systems Engineer Relationship Specialty Start Date End Date Lovely Vicente MD PCP - General 04/16/15 [address] [place] [address] documented as of this encounter
--- OUTSIDE RECORDS SUMMARY | 2022-03-04 14:51 | XMS_ITS | Encounter Summary ---
:1945 Author Organization [facility] [place] [address] Care Team Providers Name Role Phone Lovely Vicente MD Primary Care Provider Encounter Details Date Type Department Care Team Description 09/03/2017 Telephone Vascular Surgery at [facility] Ninfa Clark, [place] [address] Social History Tobacco Use Types Packs/Day [...] help with the discomfort of the change. Safety Supervisor told the VNA that I would ask [...] [facility] ER DR TADEO [place], [place] [address] (Wo rk) 06/10/2022 Office Visit Dermatology Laura Scherer MD [facility] DR TEJA GR-DERMAT [facility] [place], [place] [address] (Wo rk) documented as of this encounter Visit Diagnoses Not on filedocumented in this encounter Care Teams Qa Automation Engineer Relationship Specialty Start Date End Date Lovely Vicente MD PCP - General 04/16/[address] [place] [address] documented as of this encounter
--- OUTSIDE RECORDS SUMMARY | 2022-03-04 14:51 | XMS_ITS | Encounter Summary ---
:1945 Author Organization [facility] [place] [address] Care Team Providers Name Role Phone Lovely Vicente MD Primary Care Provider Reason for Visit Reason Comments Follow-up Skin Check Encounter Details Date Type Department Care Team Description 01/06/2018 Office Visit Dermatology at Rig[facility]to Formantipmirna nevi; Abdelrahman HOOPER MD History of melanoma; [address] [facility] [place] [address] [facility]-DERMATOLGY [place], [place] [address] Social History Tobacco Use Types [...] in the presence of Dr. Garcia.: ARIANA MORRIOSN LPN I, Hudson CastilloNaesem, have performed the documentation for this encounter in the presence of and acting as a scribe for RIGOBERTO GARCIA III, MD. I performed the above scribed service and agree with the accuracy of the documentation in this encounter. Rigoberto Garcia MD Section of Dermatology [facility] documented in this encounter Plan of Treatment Upcoming Encounters Date Type Specialty Care Team Description 03/26/2022 Office Visit Cardiology Vitaliy Nobles MD [facility] ER DR TADEO [place], [place] [address] (Wo rk) 06/10/2022 Office Visit Dermatology Laura Scherer MD [facility] ER DR TEJA GR-DERMAT [facility] [place], [place] [address] (Wo rk) documented as of this encounter Visit Diagnoses Diagnosis Multiple nevi Benign neoplasm of skin, site unspecifie d History of melanoma Personal history of malignant melanoma o f skin Seborrheic keratosis Other seborrheic keratosis documented in this encounter Care Teams Weather Stripper Relationship Specialty Start Date End Date Lovely Vicente MD PCP - General 04/16/[address] [place] [address] documented as of this encounter
--- OUTSIDE RECORDS SUMMARY | 2022-03-04 14:51 | XMS_ITS | Encounter Summary ---
:1945 Author Organization [facility] [place] [address] Care Team Providers Name Role Phone Lovely Vicente MD Primary Care Provider Reason for Visit Reason Onset Date Comments Follow-up 07/13/2018 amiodarone discontin ued Encounter Details Date Type Department Care Team Description 07/13/2018 Telephone Cardiology at [facility] [place] [place] Martha Comer, Follow-up (amiodarone [facility] RN discontin ued) [place] [phone] Social History Tobacco Use Types Packs/Day [...] RN - 07/13/2018 8:57 AM EST Per GREASE RENDERER Hans call placed to the home number for the pt. confirmed that the pt is still taking the amiodarone. Pt is to stop the amiodarone. Pt taking it for post op a-fib, therapy was supposed to be for 30 days. Message given to his . She will give him the message and will have him call with any questions. Call placed to the [facility] in [place] to discontinue it there as well. Med list updated. documented in this encounter Plan of Treatment Upcoming Encounters Date Type Specialty Care Team Description 03/26/2022 Office Visit Cardiology Vitaliy Nobles MD [facility] [address] [place], [place] [address] (Wo rk) 06/10/2022 Office Visit Dermatology Laura Scherer MD [facility] [address] [place], [place] [address] (Wo rk) documented as of this encounter Visit Diagnoses Not on filedocumented in this encounter Care Teams Senior Architectural Designer Relationship Specialty Start Date End Date Lovely Vicente MD PCP - General 04/16/[address] [place] [address] documented as of this encounter
--- OUTSIDE RECORDS SUMMARY | 2022-03-04 14:51 | XMS_ITS | Encounter Summary ---
:1945 Author Organization [facility] [place] [address] Care Team Providers Name Role Phone Lovely Vicente MD Primary Care Provider Encounter Details Date Type Department Care Team Description 10/07/2017 Laboratory Appointment Lab 3L [facility] [place] [id number] Social History Tobacco Use Types Packs/Day Years [...] Vitaliy Nobles MD [facility] [address] [place], [place] [address] (Wo rk) 06/10/2022 Office Visit Dermatology Laura Scherer MD [facility] DR [address] [place], [place] [address] (Wo rk) documented as of [...] Lvl 99 65 - 199 [facility] mg/dL [facility] Comment: [...] [facility] Estimated GFR >60 >=60 [facility] Comment: The reported eGFR should be multiplied b y 1.2 for patients. The MDRD is not an appropriate measure o f renal function for patients with body mass extremes or in patients with acute kidney failure. http://Ohmconnect.AlignAlytics/DHnkdep http://Ohmconnect.AlignAlytics/DHMCnkf Specimen Anatomical Collection Method Collection Time Receive d Time (Source) Location / / Volume Laterality Blood specimen 10/07/2017 8:48 AM 018 8:50 (specimen) EDT AM EDT Resulting Agency Comment Spec In Lab Danette Maxwell CHICKEN STUFFER CHEMISTRY ORDERABLES Performing Organization Address City/State/[place] [address] (ABNORMAL) pro-Brain Natriuretic Peptide (10/07/2017 8:48 AM EDT) P athologist Signature ProBNP 1,170 (H) <=125 [facility] pg/mL [facility] Specimen Anatomical Collection Method Collection Time Receive d Time (Source) Location / / Volume Laterality Blood specimen 10/07/2017 8:48 AM 018 8:50 (specimen) EDT AM EDT Resulting Agency Comment Spec In Lab Danette Eliseo Maxwell APRN CHEMISTRY ORDERABLES Performing Organization Address City/State/[place] [address] documented in this encounter Visit Diagnoses Diagnosis Chronic systolic heart failure documented in this encounter Care Teams Manager Wound Relationship Specialty Start Date End Date Lovely Vicente MD PCP - General 04/16/[address] [place] [address] documented as of this encounter
--- OUTSIDE RECORDS SUMMARY | 2022-03-04 14:51 | XMS_ITS | Encounter Summary ---
:1945 Author Organization [facility] [place] [address] Care Team Providers Name Role Phone Lovely Vicente MD Primary Care Provider Encounter Details Date Type Department Care Team Description 10/05/2017 Unscheduled Cardiology [place] [facility] Sin PATIENT NOT SEEN Encounter [facility] Tamiko Martinez MD [facility] [address] CARDIOLOGY DEPT [phone] [place] [address] Social History Tobacco Use Types Packs/Day Years [...] [facility] [address] [place], [place] [address] (Wo rk) 06/10/2022 Office Visit Dermatology Laura Scherer MD [facility] [address] [place], [place] [address] (Wo rk) documented as of this encounter Visit Diagnoses Diagnosis DH PATIENT NOT SEEN documented in this encounter Care Teams Duty Manager Relationship Specialty Start Date End Date Lovely Vicente MD PCP - General 04/16/15 [facility] [address] [place] [address] documented as of this encounter
--- OUTSIDE RECORDS SUMMARY | 2022-03-04 14:51 | XMS_ITS | Encounter Summary ---
:1945 Author Organization [facility] [place] [address] Care Team Providers Name Role Phone Lovely Vicente MD Primary Care Provider Reason for Visit Reason Comments Follow-up I'm having trouble with the VAC Encounter Details Date Type Department Care Team Description 08/26/2017 Office Visit Vascular Surgery at [facility], STEPHANIE Mercado Atheroembolism of foot, right; [facility] [address] Delayed surgical wound healing, initial encounter; [facility] VASCULAR SURG YEHUDA Acute on chronic systolic congestive hea rt failure ; [place], [place] [phone] Social History Tobacco Use Types Packs/Day Years [...] home and into the care of the [facility]. However, since discharge from [facility] he has had some difficulty with continuation [...] SETUP performed by Manny Mcknight MD at [facility] MAIN OR ??? PRO AMPUTATION FOOT, TRANSMETATARSAL Right 08/09/2017 AMPUTATION, TRANSMETATARSAL (WRVU 12.71) performed by Yonathan Smith MD at [facility] MAIN OR ??? PRO CABG, ARTERIAL, SINGLE N/A 07/07/2017 @CABG, USING ARTERIAL GRAFT;SINGLE ARTERIAL GRAFT (WRVU 33.75) performed by Yuan Retana MD at [facility] MAIN OR ??? PRO CABG, ARTERY-VEIN, TWO N/A 07/07/2017 @CABG, TWO VENOUS GRAFTS & ARTERIAL GRAFT (WRVU 7.93) performed by Yuan Retana MD at [facility] MAIN OR ??? PRO COLONOSCOPY, REMV LESN, SNARE 01/16/2014 COLONOSCOPY, POLYPECTOMY, REMOVAL LESION BY SNARE performed by Nohemi Jaimes MD at [facility] ENDOSCOPY ??? PRO DRESSING CHANGE UNDER ANESTHESIA Right 08/11/2017 (MSURG) DRESSING CHANGE (FOR OTHER THAN VIAN) UNDER ANES. (WRVU 0.86) performed by Lamar Smith MD at [facility] MAIN OR ??? PRO ENDOSCOPY W/VIDEO-ASST VEIN HARVEST, CABG Right 07/07/2017 ENDOSCOPIC HARVEST VEIN(S) FOR CABG (WRVU 0.31) performed by Yuan Retana MD at [facility] MAIN OR ??? PRO THYROIDECTOMY 03/28/2013 THYROIDECTOMY, TOTAL OR COMPLETE performed by Manny Mcknight MD at [facility] MAIN OR Social Hx: Social History [...] MD [facility] [address] [place], [place] [address] ([facility]) 06/10/2022 Office Visit Dermatology Laura Scherer MD [facility] [address] [facility] [place], [place] [address] (Wo rk) documented as [...] Department: Vascular Surgery Lab VASCUBASE Report Patient: [id number] (GREGORY HOANG) CPT: 04065 ICD10: T81.89XA;I75.021 Referring Physician: ARIK BLOOM ?? [...] Lvl 98 65 - 199 [facility] mg/dL [facility] Comment: Diabetes: >=200 mg/dL plus symp toms BUN 20 10 - 20 mg/dL [facility] Creatinine 1.17 0.80 - 1.50 mg/dL [facility] [...] - 15 mmol/L [facility] Calcium 9.1 8.5 - 10.5 mg/dL [facility] Estimated GFR >60 >=60 [facility] Comment: The reported eGFR should be multiplied b y 1.2 for patients. The MDRD is not an appropriate measure o f renal function for patients with body mass extremes or in patients with acute kidney failure. http://APU Solutions.Tagkast/DHnkdep http://[employer] Exchange Technologies/DHMCnkf Specimen Anatomical Collection Method Collection Time Receive d Time (Source) Location / / Volume Laterality Blood specimen 08/26/2017 2:00 PM 018 2:15 (specimen) EST PM EST Resulting Agency Comment Spec In Lab Danette Maxwell STACIE CHEMISTRY ORDERABLES Performing Organization Address City/State/ZIP Code Phon e Number [address] (ABNORMAL) pro-Brain Natriuretic Peptide (08/26/2017 2:00 PM EST) P athologist Signature ProBNP 2,373 (H) <=125 [facility] pg/mL [facility] Specimen Anatomical Collection Method Collection Time Receive d Time (Source) Location / / Volume Laterality Blood specimen 08/26/2017 2:00 PM 018 2:15 (specimen) EST PM EST Resulting Agency Comment Spec In Lab Danette Maxwell STACIE CHEMISTRY ORDERABLES Performing Organization Address City/[facility]/[place] [address] documented in this encounter Visit Diagnoses Diagnosis Atheroembolism of foot, right Delayed surgical wound healing, initial encounter Acute on chronic systolic congestive hea rt failure Acute on chronic systolic heart failure Ischemic cardiomyopathy Other specified forms of chronic ischemi c heart disease documented in this encounter Care Teams Type Caster Relationship Specialty Start Date End Date Lovely Vicente MD PCP - General 04/16/[address] [place] [address] [address] [place] [address] documented as of this encounter
--- OUTSIDE RECORDS SUMMARY | 2022-03-04 14:52 | XMS_ITS | Encounter Summary ---
:1945 [place] [address] Care Team Providers Name Role Phone Lovely Vicente MD Primary Care Provider Reason for Visit Auth/Cert Specialty Diagnoses / Procedures Referred By Contact Refer red To Contact Diagnoses Critical lower limb ischemia CELLULITIS RT FOOT Procedures EMERGENCY Referral ID Status Reason Start Date Expiration Date Visits Requ ested Visits Authorized [id number] 1 1 Encounter Details Date Type Department Care Team Description 08/06/2017 - Hospital Encounter 5 Yonathan Oneill lower limb ischemia; 08/16/2017 Su Flores MD Ischemic foot Hospital [facility] [address] S[address]iqu[place] [phone] Social History Tobacco Use Types Packs/Day Years [...] 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 Patient [...] Dorsalis Pedis (Ankle) Artery ?132 ? 0.94 ??Candler-Biphasic ? Posterior Tibial (Ankle) Artery ??154 ? 1.10 ??Candler-Biphasic ? Fourth Toe ? 67 ?0.48 ?? [...] the foot. Discharge Conditions/Prognosis: Good Discharge to: [facility] Rehab Discharge Medications: Your Medications New [...] For any problems or questions please call [phone] ZELDA Smith, unarmed security guard Nurse Clinician For issues on weeknights after 5pm and weekends please call [phone] and ask for the Vascular Fellow airway controller. General Instructions None Future Appointments and Orders Future Appointments Provider Department Dept Phone 08/26/2017 4:00 PM Aurelia Rivera PA [facility] [place] [phone] 09/07/2017 3:00 PM LAB, THREE L Lab 3L [facility] [phone] 09/07/2017 4:00 PM Luz Prescott MD Endocrinology at [place] [phone] 09/09/2017 8:00 AM Barbra Soares APRN [facility] [place] [phone] Please bring a list of your current [...] For any problems or questions please call [phone] ZELDA Smith, unarmed security guard Nurse Clinician For issues on weeknights after 5pm and weekends please call [phone] and ask for the Vascular Fellow airway controller. documented in this encounter Medications at Time [...] Management Discharge Note Patient Destination: [facility] ([facility]) [address] [place] [address] Transportation: with (at bedside) Time of Discharge: by 12 noon Level of Care: swing Patient Aware: yes Family Notified: yes Md to call report to: Yissel Quintero WELDING MACHINE OPERATOR [employer]AS [employer] already called RN to call report to: [phone] Shirin Wolf Office of Care Management Pager [phone] Shirin Wolf RN - 08/16/2017 10:50 AM EST [facility] has offered pt swing bed. Pt and accept bed. will transport via car. WELDING MACHINE OPERATOR [employer] AR[employer] Yissel Quintero aware; d/c paperwork will be completed by 12 noon. [facility] requests pt arrival by 1400 today; WELDING MACHINE OPERATOR G[employer] AR[employer], RN, and family aware. WELDING MACHINE OPERATOR GAS METAL ARC called [facility] and was told that they prefer pt to arrive with wound vac dressing applied but clamped. WELDING MACHINE OPERATOR GAS METAL ARC applied new wound vac dressing. RN has [facility] number to call report. PASSR completed; WELDING MACHINE OPERATOR G[employer] ARC paged to request provider signature in highlighted space. Indigo from [facility] notified via email that home wound vac now cancelled; STORES has picked up from room and order cancelled. Packet started and provided to community living instructor. Medicare important message explained to patient, patient signed. Copy provided to patient and signature page to OCM for inclusion in pt EMR. Radha Georges - 08/16/2017 10:34 AM EST Office of Care Management/Car Mover Patient Name: Gregory Hoang : 1945 Patient has been offered a swing bed at [facility]. The patient will be transported by private transportation. No MD to MD report necessary Please call Nursing Report to [phone], ask for sales training manager. Info to accompany patient: Narcotic Prescriptions Copies of Medication Administration Records and IV sheets for past 10 days. Plan: Car Mover will be available to the patient and City Collector-RN and/or Airplane Mechanic for further assistance. Patient will be discharged to: [place] [phone] Radha Powers, Car Mover Mira Black, VAMSI - 08/15/2017 10:05 PM EST [address] Flores to ask if he wanted to hold metoprolol dose. BP 95/58. OK to hold this dose Courtney Brito - 08/15/2017 3:26 PM EST Office of Care Management(OCM)/Car Mover(RS)/ D/C Planning re : Patient is medically ready for d/c today. RS has been in contact with [facility] to see if they could offer a bed. [facility] is still reviewing the case and need their MD to review chart prior to accepting or declining. OCM team needs to check in with [facility] tomorrow to check on status. 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 Vac in place. [...] referral to: [facility] PHONE: [phone] FAX: [phone] CM spoke with RS who said that [...] would be accepted to acute rehab at [facility] as Dr. Smith had recommended . [...] rehab. Await recommendations from PT. Covering pager #[phone]. 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 Jewelry Drilling Machine Operator Kaitlin Saha, RN Pager #[phone] Payam Rosales - 08/13/2017 2:37 PM EST Car Sales Associate Encounter Note Patient Name: Gregory Hoang : [id number] MR#: [id number] Admit Date: 08/06/2017 1:41 PM Hospital Day 7 days Narrative: Visited to introduce and assess acceptance of Car Sales Associate services. Pt was awake, alert, oriented and in chair and family was there. Assessment:Patient coping positively with stresses of illness/hospitalization at this time. Pt says that he is hoping to get better and his family was there. Pt says that he has family care and supportand taking one day at time. Intervention and Outcome: Provided emotional support and encouraging presence. 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 A letter describing our affiliations was reviewed with them and theywere educated about their right to choose where referrals are placed. Patient requests referral to [facility] [employer]. PHONE: [phone] FAX: [phone]. And Home NPWT (Negative Pressure Wound Therapy) aka wound vac device made available to pt. Serial # confirmed. Reviewed [facility] Proof of Delivery/Assignment of Benefits Statement(POD/AOB) Form w patient or authorized agent signing on behalf of patient. Copy of POD/AOB provided to pt and other copy faxed to [employer] @ fax# [phone] Expected date of discharge: 08/12/2017. 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 Address: [address] [place] [address] [place] [address] (home) Mobile: Telephone Information: Referring Provider: No [...] SETUP performed by Manny Mcknight MD at [facility] MAIN OR ??? PRO CABG, ARTERIAL, SINGLE N/A 07/07/2017 @CABG, USING ARTERIAL GRAFT;SINGLE ARTERIAL GRAFT (WRVU 33.75) performed by Yuan Retana MD at [facility] MAIN OR ??? PRO CABG, ARTERY-VEIN, TWO N/A 07/07/2017 @CABG, TWO VENOUS GRAFTS & ARTERIAL GRAFT (WRVU 7.93) performed by Yuan Retana MD at [facility] MAIN OR ??? PRO COLONOSCOPY, REMV LESN, SNARE 01/16/2014 COLONOSCOPY, POLYPECTOMY, REMOVAL LESION BY SNARE performed by Nohemi Jaimes MD at [facility] ENDOSCOPY ??? PRO ENDOSCOPY W/VIDEO-ASST VEIN HARVEST, CABG Right 07/07/2017 ENDOSCOPIC HARVEST VEIN(S) FOR CABG (WRVU 0.31) performed by Yuan Retana MD at [facility] MAIN OR ??? 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 Heparin gtt continues to run. [...] : 1945 AGE 72 y.o. Address: [address] [place] [address] [place] [address] (home) Mobile: Telephone Information: Referring Provider: No [...] SETUP performed by Manny Mcknight MD at [facility] MAIN OR ??? PRO CABG, ARTERIAL, SINGLE N/A 07/07/2017 @CABG, USING ARTERIAL GRAFT;SINGLE ARTERIAL GRAFT (WRVU 33.75) performed by Yuan Retana MD at [facility] MAIN OR ??? PRO CABG, ARTERY-VEIN, TWO N/A 07/07/2017 @CABG, TWO VENOUS GRAFTS & ARTERIAL GRAFT (WRVU 7.93) performed by Yuan Retana MD at [facility] MAIN OR ??? PRO COLONOSCOPY, REMV LESN, SNARE 01/16/2014 COLONOSCOPY, POLYPECTOMY, REMOVAL LESION BY SNARE performed by Nohemi Jaimes MD at [facility] ENDOSCOPY ??? PRO ENDOSCOPY W/VIDEO-ASST VEIN HARVEST, CABG Right 07/07/2017 ENDOSCOPIC HARVEST VEIN(S) FOR CABG (WRVU 0.31) performed by Yuan Retana MD at [facility] MAIN OR ??? 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 Pt has been given Ativan and Dilaudid and is becoming increasingly more lethargic. Sitter to remain in room with pt for safety. Phlebotomy arrived for PTT blood draw at 0045. 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 Vascular resident airway controller and will forward result to the team prior to rounds. 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 Patient [...] SETUP performed by Manny Mcknight MD at [facility] MAIN OR ??? PRO CABG, ARTERIAL, SINGLE N/A 07/07/2017 @CABG, USING ARTERIAL GRAFT;SINGLE ARTERIAL GRAFT (WRVU 33.75) performed by Yuan Retana MD at [facility] MAIN OR ??? PRO CABG, ARTERY-VEIN, TWO N/A 07/07/2017 @CABG, TWO VENOUS GRAFTS & ARTERIAL GRAFT (WRVU 7.93) performed by Yuan Retana MD at [facility] MAIN OR ??? PRO COLONOSCOPY, REMV LESN, SNARE 01/16/2014 COLONOSCOPY, POLYPECTOMY, REMOVAL LESION BY SNARE performed by Nohemi Jaimes MD at [facility] ENDOSCOPY ??? PRO ENDOSCOPY W/VIDEO-ASST VEIN HARVEST, CABG Right 07/07/2017 ENDOSCOPIC HARVEST VEIN(S) FOR CABG (WRVU 0.31) performed by Yuan Retana MD at [facility] MAIN OR ??? 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 [...] 2.5x80 5. Completion RLE angiogram 6. L COTTON SEED CULLER angiogram 7. 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 - L COTTON SEED CULLER angriogram demonstrated: High femoral bifurcation over the proximal half of the femoral head. L COTTON SEED CULLER access in the distal L COTTON SEED CULLER. - Closure device: Mynx Technical Procedure: The [...] for a 45cm 5F Destination. V18 and Eland and QuickCross catheters were used to select [...] 5F. A stationed picture of the L COTTON SEED CULLER was performed as the patient was noted to have a very high bifurcation. Access appeared in the distal R COTTON SEED CULLER. Closure and sheath removal was performed with [...] PM EST 1440 report called to 5 [place] nurse Tessa AGUSTIN documented in this encounter [...] with pt and pt's spouse. Discharge to [facility]. Goal: Individualization & Mutuality Outcome: Outcome [...] sit/sit to supine -- Bed Mobility Goal, Luce Level independent -- Bed Mobility Goal, Date [...] days -- Transfer Training Goal, Activity Type rfc-en-yyeyr/zbkme-ml-ifq -- Transfer Train Goal, Luce Level conditional independence -- Transfer Train Goal, [...] call cabello within reach, Hourly rounding by RN/RIVET CATCHER. Bed alarm / Chair alarm. Patient-specific fall [...] Operative Note Patient Name: Gregory Hoang : [id number] MR#: [id number] Case Date: 08/09/2017 Surgeon: Surgeon(s) and Role: [...] 2.5x80 5. Completion RLE angiogram 6. L COTTON SEED CULLER angiogram 7. Mynx closure Precautions/Restrictions: fall, sternal [...] other (see comments) (or swing bed) Pager: [phone] BASSAM ELIAS, PT 08/14/2017 Inpatient Physical Therapy [...] to Achieve by discharge Gait Training Goal, Luce Level conditional independence;set up required Gait Training [...] these facilities over the weekend except for [facility]. CM spoke with [facility] CM Drea Sandhu, VAMSI who said that they do not anticipate any beds over the weekend. Reviewed with patient/ that they need to be aware that patient will need to take the first bed offered at the facilities that they make referrals to. Their choices are: 1- [facility] PHONE: [phone] FAX: [phone] 2- [facility] ([facility]) [address] [place] [address] 3- [facility])([facility]) [address] [place] [address] I have discussed Medicare/Private Insurance [...] RS/CM on Wednesday to follow-up. Covering pager #[phone] for today. Plan of Care - Henrique [...] with additional findings of pseudoaneurysm on R COTTON SEED CULLER and bilateral anterior tibial artery occlusions. Was [...] an outpatient once discharged. Have patient call [phone] to set up an appointment. Follow-up: Dermatology will sign-off for now. Please do not hesitate to contact us if you have any questions orconcerns. Impression and Recommendations discussed with primary team on 08/13/2017. Karo Henderson MD Resident in Dermatology Section of Dermatology, Department of Surgery [facility] Pager [phone] Patient seen and evaluated with staff Business Systems Advisor: Halima Cordero MD Section of Dermatology [facility] Level of Resident Supervision: Direct Supervision [...] as written. My physical examination confirms Dr. Hlot findings. The assessment and plan were formulated [...] 2.5x80 5. Completion RLE angiogram 6. L COTTON SEED CULLER angiogram 7. Mynx closure Active Non-Hospital Problems [...] home with home health ([facility] PT&OT) Pager: [phone] YASIR TELLO OT 08/12/2017 Occupational Therapy Rehabilitation [...] 2.5x80 5. Completion RLE angiogram 6. L COTTON SEED CULLER angiogram 7. Mynx closure Past Medical History: [...] with 24/7 assistance and maximal services) Pager: [phone] NICHOLAS MORA, PT 08/12/2017 Physical Therapy Rehabilitation [...] sit/sit to supine -- Bed Mobility Goal, Luce Level independent -- Bed Mobility Goal, Outcome Achieved -- goal ongoing Goal: Gait Training Goal Stand Alone Therapy Goal Outcome: Ongoing (Interventions Implemented as Appropriate) 08/11/17 1310 08/12/17 1510 Gait Training Goal Gait Training Goal, Date Established 08/11/17 -- Gait Training Goal, Time to Achieve 5 - 7 days -- Gait Training Goal, Luce Level conditional independence -- Gait Training Goal, [...] days -- Transfer Training Goal, Activity Type quq-oh-wnfvw/ixsos-dx-kza -- Transfer Train Goal, Luce Level conditional independence -- Transfer Training Goal, [...] Operative Note Patient Name: Gregory Hoang : [id number] MR#: [id number] Case Date: 08/11/2017 Surgeon: Surgeon(s) and Role: [...] 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 Completion RLE angiogram 6. L COTTON SEED CULLER angiogram 7. Mynx closure He is very [...] Anticipated Discharge Disposition: inpatient rehabilitation facility Pager: [phone] LAWRENCE GONZALEZ, PT 08/11/2017 Physical Therapy Rehabilitation [...] to sit/sit to supine Bed Mobility Goal, Luce Level independent Goal: Gait Training Goal Stand Alone Therapy Goal Outcome: Ongoing (Interventions Implemented as Appropriate) 08/11/17 1310 Gait Training Goal Gait Training Goal, Date Established 08/11/17 Gait Training Goal, Time to Achieve 5 - 7 days Gait Training Goal, Luce Level conditional independence Gait Training Goal, Assist [...] 7 days Transfer Training Goal, Activity Type vij-in-kpgeq/nkffs-kc-zqk Transfer Train Goal, Luce Level conditional independence Plan of [facility] Annetta Sandoval RN - 08/11/2017 7:21 AM [...] call cabello within reach, Hourly rounding by RN/RIVET CATCHER. Bed alarm / Chair alarm. ? Patient-specific [...] Care Planning: on file Kisha Hoang [facility] [phone] Current Coping/Education/Information Needs: pt and spouse state [...] Health/Prescription Coverage: Primary Insurance: MEDICARE Secondary Insurance: [facility] Prescription Coverage: See above Preferred Pharmacy: [facility] [id number] Other: N/A Primary Care Provider: Lovely Vicente MD [phone] Patient/Caregiver Goals of Treatment: Patient plans to [...] of care planning. Kaitlin Saha RN Pager: [phone] Plan of Care - Melba Jaramillo RN [...] Overview Goal: Plan of Care Review 08/08/17 5834 Coping/Psychosocial Plan Of Care Reviewed With patient [...] call cabello within reach, Hourly rounding by RN/RIVET CATCHER. Bed alarm / Chair alarm. Patient-specific fall [...] at bedside and MD TEAM Carrying pager [phone] contacted (via Radio page) and notified of [...] [facility] CARDIOLOGY [place], [place] [address] (Wo rk) 06/10/2022 Office Visit Dermatology Laura Scherer MD [facility] DR TEJA GR-DERMAT OLOGY [place], [place] [address] (Wo rk) documented as of [...] 65 - 199 [facility] mg/dL [facility] LABORATORY [...] Organization Address City/State/[place] [address] (ABNORMAL) Differential, Automated (08/16/2017 5:08 AM EST) Patholo gist Method Time Signature Neutrophils % 73.9 % [facility] LABORATORY Neutr Abs (ANC) 5.37 1.70 - [facility] 6.10 [facility] x10(3)/[facility] LABORATORY Lymphocytes % 10.1 % [facility] Lymphocytes Abs 0.7 (L) 0.9 - 3.2 [facility] x10(3)/[facility] LABORATORY Monocytes % 10.1 % [facility] LAB[facility] Monocyte Abs 0.7 0.3 - 0.9 [facility] x10(3)/[facility] LABORATORY Eosinophils % 5.1 % [facility] Eosinophils Abs 0.4 0.0 - 0.4 [facility] x10(3)/[facility] LABORATORY Basophils % 0.4 % [facility] LAB[facility] Basophils Abs 0.0 0.0 - 0.1 [facility] x10(3)/[facility] LABORATORY [...] Melisa Gran Abs 0.03 0.00 - 0.04 x10(3)/[facility] LABORATORY Specimen Anatomical Collection Method Collection Time Receive d Time (Source) Location / / Volume Laterality Blood specimen 08/16/2017 5:08 AM 018 5:20 (specimen) EST AM EST Resulting Agency Comment Spec In Lab Yonathan Smith MD HEMATOLOGY ORDERABLES Performing Organization Address City/State/[place] [address] (ABNORMAL) Hemogram (08/16/2017 5:08 AM EST) Analysis Performed At Patho logist Time Signature WBC 7.3 4.0 - 9.5 [facility] x10(3)/[facility] LABORATORY RBC 3.36 (L) 4.58 - [facility] 5.54 [facility] x10(6)/[facility] LABORATORY Hemoglobin 9.7 (L) 13.7 - [facility] 16.5 gm/dL [facility] LAB[facility] Hematocrit 30.3 (L) 40.5 - [place] [place] 48.5 % [facility] LAB[facility] MCV 90.2 82.9 - [facility] 93.1 [facility] LABORATORY MCH 28.9 27.5 - [place] [place] 32.1 pg [facility] LAB[facility]ORY MCHC 32.0 32.0 - [facility] 35.7 gm/dL [facility] LAB[facility] Platelets 282 145 - 357 [facility] x10(3)/[facility] LABORATORY RDWSD 53.9 (H) 36.0 - [facility] 45.0 [facility] LABORATORY RDWCV 16.5 (H) 11.4 - [facility] 13.8 % [facility] LAB[facility] MPV 9.0 7.6 - 12.9 [facility] LABORATORY nRBC % Auto 0.0 % [facility] LABORATORY nRBC Abs Auto 0.000 0.000 - [facility] 0.000 [facility] x10(3)/[facility] LABORATORY Specimen Anatomical Collection Method Collection Time Receive d Time (Source) Location / / Volume Laterality Blood specimen 08/16/2017 5:08 AM 018 5:20 (specimen) EST AM EST Resulting Agency Comment Spec In Lab Yonathan Smith MD HEMATOLOGY ORDERABLES Performing Organization Address City/State/[place] [address] (ABNORMAL) Basic Metabolic Panel (non-fasting) (08/16/2017 5:08 AM EST) athologist Signature Glucose Lvl 141 65 - 199 [facility] mg/dL [facility] Comment: Diabetes: >=200 mg/dL plus symp toms BUN 29 (H) 10 - 20 mg/dL [facility] LABORATORY Creatinine 1.25 0.80 - 1.50 mg/dL [facility] [...] estions. Chloride 99 98 - 107 mmol/L [facility] LABOR[facility] CO2 28 22 - 31 mmol/L [facility] LAB[facility] Anion Gap 13 5 - 15 mmol/L [facility] LABORATORY Calcium 8.7 8.5 - 10.5 mg/dL [facility] LABORATORY Estimated GFR 57 (L) >=60 [facility] LABORATORY Comment: The reported eGFR should be multiplied b y 1.2 for patients. The MDRD is not an appropriate measure o f renal function for patients with body mass extremes or in patients with acute kidney failure. [email or web address]/DHnkdep http://[employer]/DHMCnkf Specimen Anatomical Collection Method Collection Time Receive d Time (Source) Location / / Volume Laterality Blood specimen 08/16/2017 5:08 AM 018 5:20 (specimen) EST AM EST Resulting Agency Comment Spec In Lab Yonathan Smith MD CHEMISTRY ORDERABLES Performing Organization Address City/State/ZIP Code Phon e Number [place] [phone] [address] (ABNORMAL) Prothrombin Time (08/16/2017 5:08 AM EST) athologist Signature PT 25.2 (H) 11.8 - 14.0 [facility] LABORATORY INR 2.3 (H) 0.9 - 1.1 [facility] [...] Smith MD HEMATOLOGY ORDERABLES Performing Organization Address City/[facility]/ZIP Code Phon e Number [address] POCT Glucose (08/16/2017 4:09 AM EST) athologist Signature POC Glucose 147 65 - 199 [place] [facility] mg/dL [facility] LABORATORY Comment: Supplemental ranges: <140 mg/dL before meals <180 mg/dL all other times of the day Specimen Anatomical Collection Method Collection Time Receive d Time (Source) Location / / Volume Laterality Blood specimen 08/16/2017 4:09 AM 018 4:09 (specimen) EST AM EST Yonathan Smith MD POINT OF CARE TEST ORDERABLE S Performing Organization Address City/[facility]/ZIP Code Phon e Number [address] POCT Glucose (08/15/2017 11:56 PM EST) athologist Signature POC Glucose 176 65 - 199 [place] [facility] mg/dL [facility] LABORATORY Comment: Supplemental ranges: <140 mg/dL before meals <180 mg/dL all other times of the day Specimen Anatomical Collection Method Collection Time Receive d Time (Source) Location / / Volume Laterality Blood specimen 08/15/2017 11:56 8 (specimen) PM EST 11:56 PM EST Yonathan Smith MD POINT OF CARE TEST ORDERABLE S Performing Organization Address City/[facility]/ZIP Code Phon e Number [address] POCT Glucose (08/15/2017 8:05 PM EST) athologist Signature POC Glucose 136 65 - 199 [facility] mg/dL [facility] LABORATORY [...] Organization Address City/State/[place] [address] (ABNORMAL) POCT Glucose (08/15/2017 4:50 PM EST) athologist Signature POC Glucose 232 (H) 65 - 199 [place] mg/dL [facility] LABORATORY [...] Organization Address City/State/[place] [address] POCT Glucose (08/15/2017 12:04 PM EST) athologist Signature POC Glucose 135 65 - 199 [place] mg/dL [facility] LABORATORY [...] Organization Address City/State/[place] [address] POCT Glucose (08/15/2017 7:36 AM EST) athologist Signature POC Glucose 124 65 - 199 [place] mg/dL [facility] LABORATORY [...] City/State/ZIP Code Phon e Number [place] [phone] [facility] LAB[address]ORY Drive (ABNORMAL) Differential, Automated (08/15/2017 6:22 AM EST) [facility] Method Time Signature Neutrophils % 76.1 % [facility] LABORATORY Neutr Abs (ANC) 6.62 (H) 1.70 - [facility] 6.[address] [facility] x10(3)/[facility] L LABORATORY Lymphocytes % 9.3 % [facility] LABORATORY Lymphocytes Abs 0.8 (L) 0.9 - 3.2 [facility] x10(3)/[facility] LABORATORY Monocytes % 9.4 % [facility] LABORATORY Monocyte Abs 0.8 0.3 - 0.9 [facility] x10(3)/[facility] LABORATORY Eosinophils % 4.0 % [facility] LABORATORY Eosinophils Abs 0.4 0.0 - 0.4 [facility] x10(3)/[facility] LABORATORY Basophils % 0.6 % [facility] LABORATORY Basophils Abs 0.0 0.0 - 0.1 [facility] x10(3)/[facility] LABORATORY Immature Gran % 0.60 % [...] Organization Address City/State/[place] [address] (ABNORMAL) Hemogram (08/15/2017 6:22 AM EST) Analysis Performed At Patho logist Time Signature WBC 8.7 4.0 - 9.5 [facility] x10(3)/[facility] LABORATORY RBC 3.21 (L) 4.58 - [place] [address] [facility] x10(6)/[facility] LABORATORY Hemoglobin 9.1 (L) 13.7 - [facility] 16.5 gm/dL [facility] LABORATORY Hematocrit 29.0 (L) 40.5 - [facility] 48.5 % [facility] LABORATORY MCV 90.3 82.9 - [facility] 93.1 [facility] LABORATORY MCH 28.3 27.5 - [facility] 32.1 pg [facility] LABORATORY MCHC 31.4 (L) 32.0 - [facility] 35.7 gm/dL [facility] LABORATORY Platelets 254 145 - 357 [facility] x10(3)/[facility] LABORATORY RDWSD 53.9 (H) 36.0 - [facility] 45.0 [facility] LABORATORY RDWCV 16.3 (H) 11.4 - [facility] 13.8 % [facility] LABORATORY MPV 8.8 7.6 - 12.9 [facility] LABORATORY nRBC % Auto 0.0 % [facility] LABORATORY nRBC Abs Auto 0.000 0.000 - [facility] [address] [facility] x10(3)/[facility] LABORATORY Specimen Anatomical Collection Method Collection Time Receive d Time (Source) Location / / Volume Laterality Blood specimen 08/15/2017 6:22 AM 018 6:33 (specimen) EST AM EST Resulting Agency Comment Spec In Lab Yonathan Smith MD HEMATOLOGY ORDERABLES Performing Organization Address City/State/[place] [address] (ABNORMAL) Basic Metabolic Panel (non-fasting) (08/15/2017 6:22 AM EST) P athologist Signature Glucose Lvl 118 65 - 199 [facility] mg/dL [facility] LABORATORY Comment: Diabetes: >=200 mg/dL plus symp toms BUN 27 (H) 10 - 20 mg/dL [facility] LABORATORY Creatinine 1.12 0.80 - [...] or in patients with acute kidney failure. http://[employer]/DHnkdep http://[employer]/DHMCnkf Specimen Anatomical Collection Method Collection Time Receive d Time (Source) Location / / Volume Laterality Blood specimen 08/15/2017 6:22 AM 018 6:33 (specimen) EST AM EST Resulting Agency Comment Spec In Lab Yonathan Smith MD CHEMISTRY ORDERABLES Performing Organization Address City/State/[place] [address] (ABNORMAL) Prothrombin Time (08/15/2017 6:22 AM EST) athologist Signature PT 21.9 (H) 11.8 - 14.0 [facility] LABORATORY INR 1.9 (H) 0.9 - 1.1 [facility] [...] Smith MD HEMATOLOGY ORDERABLES Performing Organization Address City/[facility]/ZIP Code Phon e Number [address] POCT Glucose (08/15/2017 4:33 AM EST) athologist Signature POC Glucose 164 65 - 199 [facility] mg/dL [facility] LABORATORY Comment: Supplemental ranges: <140 mg/dL before meals <180 mg/dL all other times of the day Specimen Anatomical Collection Method Collection Time Receive d Time (Source) Location / / Volume Laterality Blood specimen 08/15/2017 4:33 AM 018 4:33 (specimen) EST AM EST Yonathan Smith MD POINT OF CARE TEST ORDERABLE S Performing Organization Address City/[facility]/ZIP Code Phon e Number [address] POCT Glucose (08/15/2017 12:12 AM EST) athologist Signature POC Glucose 89 65 - 199 [facility] mg/dL [facility] LABORATORY Comment: Supplemental ranges: <140 mg/dL before meals <180 mg/dL all other times of the day Specimen Anatomical Collection Method Collection Time Receive d Time (Source) Location / / Volume Laterality Blood specimen 08/15/2017 12:12 8 (specimen) AM EST 12:12 AM EST Yonathan Smith MD POINT OF CARE TEST ORDERABLE S Performing Organization Address City/[facility]/[place] [address] (ABNORMAL) POCT Glucose (08/14/2017 8:07 PM EST) athologist Signature POC Glucose 204 (H) 65 - 199 [place] [facility] mg/dL [facility] LABORATORY [...] Organization Address City/State/[place] [address] POCT Glucose (08/14/2017 5:11 PM EST) athologist Signature POC Glucose 174 65 - 199 [facility] mg/dL [facility] LABORATORY [...] Organization Address City/State/[place] [address] POCT Glucose (08/14/2017 12:10 PM EST) athologist Signature POC Glucose 141 65 - 199 [place] mg/dL [facility] LABORATORY [...] Address City/State/ZIP Code Phon e Number [address] POCT Glucose (08/14/2017 8:07 AM EST) P athologist Signature POC Glucose 158 65 - 199 [facility] mg/dL [facility] LABORATORY [...] Organization Address City/State/[place] [address] (ABNORMAL) Differential, Automated (08/14/2017 4:52 AM EST) Patholo gist Method Time Signature Neutrophils % 78.6 % [facility] LABORATORY Neutr Abs (ANC) 7.70 (H) 1.70 - [facility] [address] [facility] x10(3)/[facility] LABORATORY Lymphocytes % 7.8 % [facility] LABORATORY Lymphocytes Abs 0.8 (L) 0.9 - 3.2 [facility] x10(3)/[facility] LABORATORY Monocytes % 8.8 % [facility] LABORATORY Monocyte Abs 0.9 0.3 - 0.9 [facility] x10(3)/[facility] LABORATORY Eosinophils % 4.0 % [facility] LABORATORY Eosinophils Abs 0.4 0.0 - 0.4 [facility] x10(3)/[facility] LABORATORY Basophils % 0.5 % [facility] LABORATORY Basophils Abs 0.0 0.0 - 0.1 [facility] x10(3)/[facility] LABORATORY Immature Gran % 0.30 % BAR[place] [...] Melisa Gran Abs 0.03 0.00 - 0.04 x10(3)/[facility] LABORATORY Specimen Anatomical Collection Method Collection Time Receive d Time (Source) Location / / Volume Laterality Blood specimen 08/14/2017 4:52 AM 018 5:08 (specimen) EST AM EST Resulting Agency Comment Spec In Lab Yonathan Smith MD HEMATOLOGY ORDERABLES Performing Organization Address City/State/[place] [address] (ABNORMAL) Hemogram (08/14/2017 4:52 AM EST) Analysis Performed At Patho logist Time Signature WBC 9.8 (H) 4.0 - 9.5 [facility] x10(3)/[facility] LABORATORY RBC 3.32 (L) 4.58 - [facility] 5.[address] [facility] x10(6)/[facility] LABORATORY Hemoglobin 9.5 (L) 13.7 - [facility] 16.5 gm/dL [facility] LABORATORY Hematocrit 30.3 (L) 40.5 - [facility] 48.5 % [facility] LABORATORY MCV 91.3 82.9 - [facility] 93.1 [facility] LABORATORY MCH 28.6 27.5 - [facility] 32.1 pg [facility] LABORATORY MCHC 31.4 (L) 32.0 - [facility] 35.7 gm/dL [facility] LABORATORY Platelets 263 145 - 357 [facility] x10(3)/[facility] RDWSD 54.8 (H) 36.0 - [facility] 45.0 [facility] LABORATORY RDWCV 16.5 (H) 11.4 - [facility] 13.8 % [facility] LABORATORY MPV 9.1 7.6 - 12.9 [facility] nRBC % Auto 0.0 % [facility] LABORATORY nRBC Abs Auto 0.000 0.000 - [facility] [address] [facility] x10(3)/[facility] LABORATORY Specimen Anatomical Collection Method Collection Time Receive d Time (Source) Location / / Volume Laterality Blood specimen 08/14/2017 4:52 AM 018 5:08 (specimen) EST AM EST Resulting Agency Comment Spec In Lab Yonathan Smith MD HEMATOLOGY ORDERABLES Performing Organization Address City/[facility]/ZIP Code Phon e Number [place] [phone] [address]OS[address] LAB[address]ORY Drive (ABNORMAL) Prothrombin Time (08/14/2017 [...] Smith MD HEMATOLOGY ORDERABLES Performing Organization Address City/[facility]/[place] [address] (ABNORMAL) Basic Metabolic Panel (non-fasting) (08/14/2017 4:52 AM EST) athologist Signature Glucose Lvl 135 65 - 199 [facility] mg/dL [facility] LABORATORY Comment: Diabetes: >=200 mg/dL plus symp toms BUN 25 (H) 10 - 20 mg/dL [facility] LABORATORY Creatinine 1.36 0.80 - 1.50 mg/dL [facility] CENTER LABORATORY Estimated GFR 52 (L) >=60 [facility] LABORATORY Comment: The reported eGFR should be multiplied b y 1.2 for patients. The MDRD is not an appropriate measure o f renal function for patients with body mass extremes or in patients with acute kidney failure. http://[employer]/DHnkdep http://[employer]/DHnkf Specimen Anatomical Collection Method Collection Time Receive d Time (Source) Location / / Volume Laterality Blood specimen 08/14/2017 4:52 AM 018 5:08 (specimen) EST AM EST Resulting Agency Comment Spec In Lab Yonathan Smith MD CHEMISTRY ORDERABLES Performing Organization Address City/[facility]/ZIP Code Phon e Number [address] POCT Glucose (08/14/2017 3:56 AM EST) athologist Signature POC Glucose 135 65 - 199 [facility] mg/dL [facility] LABORATORY Comment: Supplemental ranges: <140 mg/dL before meals <180 mg/dL all other times of the day Specimen Anatomical Collection Method Collection Time Receive d Time (Source) Location / / Volume Laterality Blood specimen 08/14/2017 3:56 AM 018 3:56 (specimen) EST AM EST Yonathan Smith MD POINT OF CARE TEST ORDERABLE S Performing Organization Address City/[facility]/ZIP [facility] Phon e Number [address] POCT Glucose (08/13/2017 11:13 PM EST) athologist Signature POC Glucose 118 65 - 199 [facility] mg/dL [facility] LABORATORY Comment: Supplemental ranges: <140 mg/dL before meals <180 mg/dL all other times of the day Specimen Anatomical Collection Method Collection Time Receive d Time (Source) Location / / Volume Laterality Blood specimen 08/13/2017 11:13 8 (specimen) PM EST 11:13 PM EST Yonathan Smith MD POINT OF CARE TEST ORDERABLE S Performing Organization Address City/[facility]/[place] [address] (ABNORMAL) POCT Glucose (08/13/2017 8:08 PM EST) athologist Signature POC Glucose 204 (H) 65 - 199 [facility] mg/dL [facility] LABORATORY [...] Organization Address City/State/[place] [address] POCT Glucose (08/13/2017 4:02 PM EST) athologist Signature POC Glucose 145 65 - 199 [facility] mg/dL [facility] LABORATORY Comment: Supplemental ranges: <140 mg/dL before meals <180 mg/dL all other times of the day Specimen Anatomical Collection Method Collection Time Receive d Time (Source) Location / / Volume Laterality Blood specimen 08/13/2017 4:02 PM 018 4:02 (specimen) EST PM EST Yonathan Smiht MD POINT OF CARE TEST ORDERABLE S Performing Organization Address City/State/[place] [address] POCT Glucose (08/13/2017 11:31 AM EST) athologist Signature POC Glucose 179 65 - 199 [facility] mg/dL [facility] LABORATORY [...] Address City/State/ZIP Code Phon e Number [address] (ABNORMAL) POCT Glucose (08/13/2017 10:16 AM EST) P athologist Signature POC Glucose 211 (H) 65 - 199 [facility] mg/dL [facility] LABORATORY [...] Organization Address City/State/[place] [address] JULIAN, legs, multiple levels (08/13/2017 7:42 AM EST) Component Value Ref Test Analysis Performed At Patholo gist Range Method Time Signature VB Text Department: Vascular Surgery Lab VASCUBASE Report Patient: [id number] (GREOGRY HOANG) CPT: 70700 ICD10: I99.8 Referring Physician: YONATHAN SMITH ?? Indications: s/p R 1,2,3 toe amps with red left foot, need n ew baseline Diabetes mellitus: yes ICD10 Diagnosis Code: I99.8 Findings: Right ?Pressure (mm Hg) ?? JULIAN ??Waveform ?TBI ?? Brachial Artery ?138 ? Dorsalis Pedis (Ankle) Arter y ?132 ? 0.94 ??Candler- Biphasic ? Posterior Tibial (Ankle) Art anila ??154 ? 1.10 ??Candler-Biphasic ? Fourth Toe ? 67 ? 0.48 [...] 65 - 199 [facility] mg/dL [facility] LABORATORY [...] Organization Address City/State/[place] [address] (ABNORMAL) Differential, Automated (08/13/2017 5:33 AM EST) Patholo gist Method Time Signature Neutrophils % 77.8 % [facility] LABORATORY Neutr Abs (ANC) 7.83 (H) 1.70 - [facility] 6.[address] [facility] x10(3)/[facility] L LABORATORY Lymphocytes % 8.4 % [facility] LABORATORY Lymphocytes Abs 0.8 (L) 0.9 - 3.2 [facility] x10(3)/[facility] LABORATORY Monocytes % 8.3 % [facility] LABORATORY Monocyte Abs 0.8 0.3 - 0.9 [facility] x10(3)/[facility] LABORATORY Eosinophils % 4.6 % [facility] LABORATORY Eosinophils Abs 0.5 (H) 0.0 - 0.4 [facility] x10(3)/[facility] LABORATORY Basophils % 0.5 % [facility] LABORATORY Basophils Abs 0.0 0.0 - 0.1 [facility] x10(3)/[facility] LABORATORY Immature Gran % 0.40 % BAR[place] [...] Melisa Gran Abs 0.04 0.00 - 0.04 x10(3)/[facility] LABORATORY Specimen Anatomical Collection Method Collection Time Receive d Time (Source) Location / / Volume Laterality Blood specimen 08/13/2017 5:33 AM 018 6:04 (specimen) EST AM EST Resulting Agency Comment Spec In Lab Yonathan Smith MD HEMATOLOGY ORDERABLES Performing Organization Address City/State/[place] [address] (ABNORMAL) Hemogram (08/13/2017 5:33 AM EST) Analysis Performed At Patho logist Time Signature WBC 10.1 (H) 4.0 - 9.5 [facility] x10(3)/[facility] LABORATORY RBC 3.21 (L) 4.58 - [facility] [address] [facility] x10(6)/[facility] LABORATORY Hemoglobin 9.2 (L) 13.7 - [facility] 16.5 gm/dL [facility] LABORATORY Hematocrit 29.6 (L) 40.5 - [facility] 48.5 % [facility] LABORATORY MCV 92.2 82.9 - [facility] 93.1 [facility] LABORATORY MCH 28.7 27.5 - [facility] 32.1 pg [facility] LABORATORY MCHC 31.1 (L) 32.0 - [facility] 35.7 gm/dL [facility] LABORATORY Platelets 263 145 - 357 [facility] x10(3)/[facility] LABORATORY RDWSD 54.8 (H) 36.0 - [facility] 45.0 [facility] LABORATORY RDWCV 16.4 (H) 11.4 - [facility] 13.8 % [facility] LABORATORY MPV 9.2 7.6 - 12.9 [facility] LABORATORY nRBC % Auto 0.0 % [facility] LABORATORY nRBC Abs Auto 0.000 0.000 - [place] [facility] [address] [facility] x10(3)/[facility] LABORATORY Specimen Anatomical Collection Method Collection Time Receive d Time (Source) Location / / Volume Laterality Blood specimen 08/13/2017 5:33 AM 018 6:04 (specimen) EST AM EST Resulting Agency Comment Spec In Lab Yonathan Smith MD HEMATOLOGY ORDERABLES Performing Organization Address City/State/[place] [address] (ABNORMAL) Prothrombin Time (08/13/2017 5:33 AM EST) P athologist Signature PT 17.3 (H) 11.8 - 14.0 [facility] LABORATORY INR 1.4 (H) 0.9 - 1.1 [facility] [...] Organization Address City/State/[place] [address] (ABNORMAL) Basic Metabolic Panel (non-fasting) (08/13/2017 5:33 AM EST) athologist Signature Glucose Lvl 126 65 - 199 [facility] mg/dL [facility] LABORATORY Comment: Diabetes: >=200 mg/dL plus symp toms BUN 18 10 - 20 mg/dL [facility] LABORATORY Creatinine 1.16 0.80 - 1.50 mg/dL [facility] Calcium 7.9 (L) 8.5 - 10.5 mg/dL [facility] LABORATORY Estimated GFR >60 >=60 [facility] LABORATORY Comment: The reported eGFR should be multiplied b y 1.2 for patients. The MDRD is not an appropriate measure o f renal function for patients with body mass extremes or in patients with acute kidney failure. http://[employer]/DHnkdep http://[employer]/DHMCnkf Specimen Anatomical Collection Method Collection Time Receive d Time (Source) Location / / Volume Laterality Blood specimen 08/13/2017 5:33 AM 018 6:04 (specimen) EST AM EST Resulting Agency Comment Spec In Lab Yonathan Smith MD CHEMISTRY ORDERABLES Performing Organization Address City/[facility]/ZIP Code Phon e Number [address] POCT Glucose (08/13/2017 4:29 AM EST) athologist Signature POC Glucose 111 65 - 199 [place] mg/dL [facility] LABORATORY Comment: Supplemental ranges: <140 mg/dL before meals <180 mg/dL all other times of the day Specimen Anatomical Collection Method Collection Time Receive d Time (Source) Location / / Volume Laterality Blood specimen 08/13/2017 4:29 AM 018 4:29 (specimen) EST AM EST Yonathan Smith MD POINT OF CARE TEST ORDERABLE S Performing Organization Address City/[facility]/ZIP [facility] Phon e Number [address] POCT Glucose (08/12/2017 11:28 PM EST) athologist Signature POC Glucose 164 65 - 199 [facility] mg/dL [facility] LABORATORY Comment: Supplemental ranges: <140 mg/dL before meals <180 mg/dL all other times of the day Specimen Anatomical Collection Method Collection Time Receive d Time (Source) Location / / Volume Laterality Blood specimen 08/12/2017 11:28 8 (specimen) PM EST 11:28 PM EST Yonathan Smith MD POINT OF CARE TEST ORDERABLE S Performing Organization Address City/[facility]/ZIP Code Phon e Number [address] (ABNORMAL) POCT Glucose (08/12/2017 7:40 PM EST) athologist Signature POC Glucose 209 (H) 65 - 199 [facility] mg/dL [facility] LABORATORY [...] Address City/State/ZIP Code Phon e Number [address] POCT Glucose (08/12/2017 4:24 PM EST) athologist Signature POC Glucose 161 65 - 199 [facility] mg/dL [facility] LABORATORY [...] Address City/State/ZIP Code Phon e Number [address] POCT Glucose (08/12/2017 12:00 PM EST) athologist Signature POC Glucose 167 65 - 199 [facility] mg/dL [facility] LABORATORY [...] Address City/State/ZIP Code Phon e Number [address] POCT Glucose (08/12/2017 7:25 AM EST) athologist Signature POC Glucose 152 65 - 199 [facility] mg/dL [facility] LABORATORY [...] City/State/ZIP Code Phon e Number [place] [id number] HOSPITAL LABORATORY Drive (ABNORMAL) Differential, Automated (08/12/2017 6:29 AM EST) [facility] Method Time Signature Neutrophils % 78.7 % [facility] LABORATORY Neutr Abs (ANC) 7.94 (H) 1.70 - [facility] 6.10 [facility] x10(3)/[facility] LABORATORY Lymphocytes % 8.8 % [facility] LAB[facility]ORY Lymphocytes Abs 0.9 0.9 - 3.2 [facility] x10(3)/[facility] LABORATORY Monocytes % 7.8 % [facility] LAB[facility]ORY Monocyte Abs 0.8 0.3 - 0.9 [facility] x10(3)/[facility] LABORATORY Eosinophils % 3.9 % [facility] LAB[facility]ORY Eosinophils Abs 0.4 0.0 - 0.4 [facility] x10(3)/[facility] LABORATORY Basophils % 0.3 % [facility] LABORATORY Basophils Abs 0.0 0.0 - 0.1 [facility] x10(3)/[facility] LABORATORY Immature Gran % 0.50 % [facility] LABORATORY Comment: Immature [...] City/State/ZIP Code Phon e Number [place] [id number]OSPITAL LABORATORY Drive (ABNORMAL) Hemogram (08/12/2017 6:29 AM EST) Analysis Performed At Patho logist Time Signature WBC 10.1 (H) 4.0 - 9.5 [facility] x10(3)/[facility] LABORATORY RBC 3.02 (L) 4.58 - [facility] [address] [facility] x10(6)/[facility] LABORATORY Hemoglobin 8.7 (L) 13.7 - [facility] 16.5 gm/dL [facility] LAB[facility]ORY Hematocrit 28.1 (L) 40.5 - [facility] 48.5 % [facility] MCV 93.0 82.9 - [facility] 93.1 [facility] LABORATORY MCH 28.8 27.5 - [facility] 32.1 pg [facility] MCHC 31.0 (L) 32.0 - [facility] 35.7 gm/dL [facility] Platelets 223 145 - 357 [facility] x10(3)/[facility] LABORATORY RDWSD 56.1 (H) 36.0 - [facility] 45.0 [facility] LABORATORY RDWCV 16.4 (H) 11.4 - [facility] 13.8 % [facility] LAB[facility] MPV 9.0 7.6 - 12.9 [facility] LABORATORY nRBC % Auto 0.0 % [facility] nRBC Abs Auto 0.000 0.000 - [facility] [address] [facility] x10(3)/[facility] LABORATORY Specimen Anatomical Collection Method Collection Time Receive d Time (Source) Location / / Volume Laterality Blood specimen 08/12/2017 6:29 AM 018 6:38 (specimen) EST AM EST Resulting Agency Comment Spec In Lab Yonathan Smith MD HEMATOLOGY ORDERABLES Performing Organization Address City/State/ZIP Code [place] [address] (ABNORMAL) Prothrombin Time (08/12/2017 [...] Organization Address City/State/[place] [address] (ABNORMAL) Basic Metabolic Panel (non-fasting) (08/12/2017 6:29 AM EST) P athologist Signature Glucose Lvl 151 65 - 199 [facility] mg/dL [facility] LAB[facility] Comment: Diabetes: >=200 mg/dL plus symp toms BUN 18 10 - 20 mg/dL [facility] LABORATORY Creatinine 1.11 0.80 - 1.50 mg/dL [facility] [...] estions. Chloride 99 98 - 107 mmol/L [facility] LABORATORY CO2 28 22 - 31 mmol/L [facility] Anion Gap 11 5 - 15 mmol/L [facility] LABORATORY Calcium 7.9 (L) 8.5 - 10.5 mg/dL [facility] LABORATORY Estimated GFR >60 >=60 [facility] LABORATORY Comment: The reported eGFR should be multiplied b y 1.2 for patients. The MDRD is not an appropriate measure o f renal function for patients with body mass extremes or in patients with acute kidney failure. http://[employer]/DHnkdep http://[employer]/DHMCnkf Specimen Anatomical Collection Method Collection Time Receive d Time (Source) Location / / Volume Laterality Blood specimen 08/12/2017 6:29 AM 018 6:38 (specimen) EST AM EST Resulting Agency Comment Spec In Lab Yonathan Smith MD CHEMISTRY ORDERABLES Performing Organization Address City/[facility]/[place] [address] POCT Glucose (08/12/2017 4:08 AM EST) athologist Signature POC Glucose 181 65 - 199 [facility] mg/dL [facility] LAB[facility] Comment: Supplemental ranges: <140 mg/dL before meals <180 mg/dL all other times of the day Specimen Anatomical Collection Method Collection Time Receive d Time (Source) Location / / Volume Laterality Blood specimen 08/12/2017 4:08 AM 018 4:08 (specimen) EST AM EST Yonathan Smith MD POINT OF CARE TEST ORDERABLE S Performing Organization Address City/[facility]/[place] [address] (ABNORMAL) POCT Glucose (08/12/2017 12:17 AM EST) athologist Signature POC Glucose 221 (H) 65 - 199 [facility] mg/dL [facility] LAB[facility] Comment: Supplemental ranges: <140 mg/dL before meals <180 mg/dL all other times of the day Specimen Anatomical Collection Method Collection Time Receive d Time (Source) Location / / Volume Laterality Blood specimen 08/12/2017 12:17 8 (specimen) AM EST 12:17 AM EST Yonathan Smith MD POINT OF CARE TEST ORDERABLE S Performing Organization Address City/[facility]/[place] [address] (ABNORMAL) POCT Glucose (08/11/2017 8:52 PM EST) athologist Signature POC Glucose 221 (H) 65 - 199 [facility] mg/dL [facility] LABORATORY [...] Organization Address City/State/[place] [address] POCT Glucose (08/11/2017 5:59 PM EST) athologist Signature POC Glucose 169 65 - 199 [facility] mg/dL [facility] LAB[facility] Comment: Supplemental ranges: <140 mg/dL before meals <180 mg/dL all other times of the day Specimen Anatomical Collection Method Collection Time Receive d Time (Source) Location / / Volume Laterality Blood specimen 08/11/2017 5:59 PM 018 5:59 (specimen) EST PM EST Yonathan Smith MD POINT OF CARE TEST ORDERABLE S Performing Organization Address City/[facility]/[place] [address] (ABNORMAL) POCT Glucose (08/11/2017 4:08 PM EST) athologist Signature POC Glucose 240 (H) 65 - 199 [facility] mg/dL [facility] LABORATORY [...] Organization Address City/State/[place] [address] POCT Glucose (08/11/2017 12:04 PM EST) athologist Signature POC Glucose 182 65 - 199 [facility] mg/dL [facility] LABORATORY [...] Address City/State/ZIP Code Phon e Number [address] POCT Glucose (08/11/2017 7:31 AM EST) athologist Signature POC Glucose 156 65 - 199 [facility] mg/dL [facility] LABORATORY [...] Address City/State/ZIP Code Phon e Number [address] (ABNORMAL) Differential, Automated (08/11/2017 6:16 AM EST) [facility] gist Method Time Signature Neutrophils % 83.7 % [facility] LABORATORY Neutr Abs (ANC) 10.76 (H) 1.70 - [facility] 6.[address] [facility] x10(3)/[facility] L LABORATORY Lymphocytes % 6.0 % [facility] LABORATORY Lymphocytes Abs 0.8 (L) 0.9 - 3.2 [facility] x10(3)/[facility] LABORATORY Monocytes % 7.5 % [facility] LABORATORY Monocyte Abs 1.0 (H) 0.3 - 0.9 [facility] x10(3)/[facility] LABORATORY Eosinophils % 2.0 % [facility] LABORATORY Eosinophils Abs 0.3 0.0 - 0.4 [facility] x10(3)/[facility] LABORATORY Basophils % 0.3 % [facility] LABORATORY Basophils Abs 0.0 0.0 - 0.1 [facility] x10(3)/[facility] LABORATORY Immature Gran % 0.50 % [facility] LABORATORY Comment: Immature [...] Organization Address City/State/[place] [address] (ABNORMAL) Hemogram (08/11/2017 6:16 AM EST) Analysis Performed At Patho logist Time Signature WBC 12.9 (H) 4.0 - 9.5 [facility] x10(3)/[facility] LABORATORY RBC 3.28 (L) 4.58 - [facility] 5.[address] [facility] x10(6)/[facility] LABORATORY Hemoglobin 9.5 (L) 13.7 - [facility] 16.5 gm/dL [facility] LABORATORY Hematocrit 29.8 (L) 40.5 - [facility] 48.5 % [facility] LABORATORY MCV 90.9 82.9 - [facility] 93.1 fL [facility] LABORATORY MCH 29.0 27.5 - [facility] 32.1 pg [facility] LABORATORY MCHC 31.9 (L) 32.0 - [facility] 35.7 gm/dL [facility] LAB[facility]ORY Platelets 236 145 - 357 [facility] x10(3)/[facility] LABORATORY RDWSD 53.5 (H) 36.0 - [facility] 45.0 [facility] LABORATORY RDWCV 16.3 (H) 11.4 - [facility] 13.8 % [facility] LABORATORY MPV 8.8 7.6 - 12.9 [facility] LABORATORY nRBC % Auto 0.0 % [facility] LABORATORY nRBC Abs Auto 0.000 0.000 - [facility] [address] [facility] x10(3)/[facility] LABORATORY Specimen Anatomical Collection Method Collection Time Receive d Time (Source) Location / / Volume Laterality Blood specimen 08/11/2017 6:16 AM 018 6:24 (specimen) EST AM EST Resulting Agency Comment Spec In Lab Yonathan Smith MD HEMATOLOGY ORDERABLES Performing Organization Address City/[facility] Phon e Number [address] (ABNORMAL) Prothrombin Time (08/11/2017 [...] Smith MD HEMATOLOGY ORDERABLES Performing Organization Address City/[facility] Phon e Number [address] Basic Metabolic Panel (non-fasting) (08/11/2017 6:16 AM EST) P athologist Signature Glucose Lvl 139 65 - 199 [facility] mg/dL [facility] LAB[facility]ORY Comment: Diabetes: >=200 mg/dL plus symp toms BUN 12 10 - 20 mg/dL [facility] LABORATORY Creatinine 0.91 0.80 - 1.50 mg/dL [facility] [...] or in patients with acute kidney failure. http://[employer]/DHnkdep http://[employer]/DHMCnkf Specimen Anatomical Collection Method Collection Time Receive d Time (Source) Location / / Volume Laterality Blood specimen 08/11/2017 6:16 AM 018 6:24 (specimen) EST AM EST Resulting Agency Comment Spec In Lab Yonathan Smith MD CHEMISTRY ORDERABLES Performing Organization Address City/State/[place] [address] POCT Glucose (08/11/2017 4:07 AM EST) P athologist Signature POC Glucose 162 65 - 199 [facility] mg/dL [facility] LABORATORY [...] Organization Address City/State/[place] [address] POCT Glucose (08/10/2017 11:59 PM EST) athologist Signature POC Glucose 166 65 - 199 [facility] mg/dL [facility] LABORATORY [...] Organization Address City/State/[place] [address] POCT Glucose (08/10/2017 8:12 PM EST) athologist Signature POC Glucose 156 65 - 199 [facility] mg/dL [facility] LABORATORY [...] Organization Address City/State/[place] [address] (ABNORMAL) POCT Glucose (08/10/2017 4:42 PM EST) athologist Signature POC Glucose 211 (H) 65 - 199 [facility] mg/dL [facility] LABORATORY [...] Organization Address City/State/[place] [address] (ABNORMAL) Differential, Automated (08/10/2017 2:30 PM EST) [facility] Method Time Signature Neutrophils % 87.6 % [facility] LABORATORY Neutr Abs (ANC) 9.90 (H) 1.70 - [facility] [address] [facility] x10(3)/[facility] LABORATORY Lymphocytes % 4.3 % [facility] LABORATORY Lymphocytes Abs 0.5 (L) 0.9 - 3.2 [facility] x10(3)/[facility] LABORATORY Monocytes % 6.0 % [facility] LABORATORY Monocyte Abs 0.7 0.3 - 0.9 [facility] x10(3)/[facility] LABORATORY Eosinophils % 1.1 % [facility] LABORATORY Eosinophils Abs 0.1 0.0 - 0.4 [facility] x10(3)/[facility] LABORATORY Basophils % 0.4 % [facility] LABORATORY Basophils Abs 0.0 0.0 - 0.1 [facility] x10(3)/[facility] LABORATORY Immature Gran % 0.60 % [facility] LABORATORY Comment: Immature granulocytes(IG's)percentage an d absolute count will include metamyelocytes, myelocytes, and promyelo cytes. Blood smears from CBCs yielding IG's will be scanned manually for concor dance. If this scan disagrees with the automated IG or if promyelocytes are not ed, a manual differential will be performed. [place]ils[place] Gran Abs 0.07 (H) 0.00 - 0.04 x10(3)/[facility] LABORATORY Specimen Anatomical Collection Method Collection Time Receive d Time (Source) Location / / Volume Laterality Blood specimen 08/10/2017 2:30 PM 018 2:48 (specimen) EST PM EST Resulting Agency Comment Spec In Lab Yonathan Smith MD HEMATOLOGY ORDERABLES Performing Organization Address City/State/[place] [address] (ABNORMAL) Hemogram (08/10/2017 2:30 PM EST) Analysis Performed At Patho logist Time Signature WBC 11.3 (H) 4.0 - 9.5 [facility] x10(3)/[facility] LABORATORY RBC 3.13 (L) 4.58 - [facility] 5.[address] [facility] x10(6)/[facility] LABORATORY Hemoglobin 8.9 (L) 13.7 - [facility] 16.5 gm/dL [facility] LABORATORY Hematocrit 28.4 (L) 40.5 - [facility] 48.5 % [facility] LABORATORY MCV 90.7 82.9 - [facility] 93.1 [facility] LABORATORY MCH 28.4 27.5 - [facility] 32.1 pg [facility] LABORATORY MCHC 31.3 (L) 32.0 - [facility] 35.7 gm/dL [facility] LABORATORY Platelets 213 145 - 357 [facility] x10(3)/[facility] LABORATORY RDWSD 53.7 (H) 36.0 - [facility] 45.0 [facility] LABORATORY RDWCV 16.4 (H) 11.4 - [facility] 13.8 % [facility] LABORATORY MPV 8.9 7.6 - 12.9 [facility] nRBC % Auto 0.0 % [facility] LABORATORY nRBC Abs Auto 0.000 0.000 - [facility] [address] [facility] x10(3)/[facility] LABORATORY Specimen Anatomical Collection Method Collection Time Receive d Time (Source) Location / / Volume Laterality Blood specimen 08/10/2017 2:30 PM 018 2:48 (specimen) EST PM EST Resulting Agency Comment Spec In Lab Yonathan Smith MD HEMATOLOGY ORDERABLES Performing Organization Address City/State/[place] [address] (ABNORMAL) POCT Glucose (08/10/2017 1:50 PM EST) athologist Signature POC Glucose 243 (H) 65 - 199 [facility] mg/dL [facility] LABORATORY [...] Address City/State/ZIP Code Phon e Number [address] POCT Glucose (08/10/2017 11:21 AM EST) athologist Signature POC Glucose 156 65 - 199 [facility] mg/dL [facility] LABORATORY [...] Address City/State/ZIP Code Phon e Number [address] (ABNORMAL) Differential, Automated (08/10/2017 10:28 AM EST) [facility] gist Method Time Signature Neutrophils % 85.3 % [facility] LABORATORY Neutr Abs (ANC) 9.43 (H) 1.70 - [facility] 6.10 [facility] x10(3)/[facility] L LABORATORY Lymphocytes % 5.5 % [facility] LABORATORY Lymphocytes Abs 0.6 (L) 0.9 - 3.2 [facility] x10(3)/[facility] LABORATORY Monocytes % 5.9 % [facility] LABORATORY Monocyte Abs 0.6 0.3 - 0.9 [facility] x10(3)/[facility] LABORATORY Eosinophils % 2.1 % [facility] LABORATORY Eosinophils Abs 0.2 0.0 - 0.4 [facility] x10(3)/[facility] LABORATORY Basophils % 0.4 % [facility] LABORATORY Basophils Abs 0.0 0.0 - 0.1 [facility] x10(3)/[facility] LABORATORY Immature Gran % 0.80 % [facility] LABORATORY Comment: Immature [...] Organization Address City/State/[place] [address] (ABNORMAL) Hemogram (08/10/2017 10:28 AM EST) Analysis Performed At Patho logist Time Signature WBC 11.0 (H) 4.0 - 9.5 [facility] x10(3)/[facility] LABORATORY RBC 3.02 (L) 4.58 - [facility] [address] [facility] x10(6)/[facility] LABORATORY Hemoglobin 8.8 (L) 13.7 - [facility] 16.5 gm/dL [facility] LABORATORY Hematocrit 28.1 (L) 40.5 - [facility] 48.5 % [facility] LABORATORY MCV 93.0 82.9 - [facility] 93.1 fL [facility] LABORATORY MCH 29.1 27.5 - [facility] 32.1 pg [facility] LABORATORY MCHC 31.3 (L) 32.0 - [facility] 35.7 gm/dL [facility] LABORATORY Platelets 207 145 - 357 [facility] x10(3)/[facility] LABORATORY RDWSD 55.3 (H) 36.0 - [facility] 45.0 [facility] RDWCV 16.4 (H) 11.4 - [facility] 13.8 % [facility] MPV 9.0 7.6 - 12.9 [facility] LABORATORY nRBC % Auto 0.0 % [facility] nRBC Abs Auto 0.000 0.000 - [facility] [address] [facility] x10(3)/[facility] LABORATORY Specimen Anatomical Collection Method Collection Time Receive d Time (Source) Location / / Volume Laterality Blood specimen 08/10/2017 10:28 8 (specimen) AM EST 10:35 AM EST Resulting Agency Comment Spec In Lab Yonathan Smith MD HEMATOLOGY ORDERABLES Performing Organization Address City/State/[place] [address] VS Angiogram/intervention (vascular) (08/10/2017 [...] 2.5x80 5. Completion RLE angiogram 6. L [employer] angiogram 7. 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 - L [employer] angriogram demonstrated: High fe moral bifurcation over the proximal half of the femoral head. L [employer] access in the distal L [employer]. - Closure device: Mynx Technical Procedure: ?The [...] for a 45cm 5F Destination. V18 and Eland a nd QuickCross catheters were used to [...] bifurcation. Access appeared in the distal R [employer]. Closure and sheath removal was performed with [...] 2.5x80 5. Completion RLE angiogram 6. L [employer] angiogram 7. 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 - L [facility] [facility] angriogram demonstrated: High fe moral bifurcation over the proximal half of the femoral head. L [employer] access in the distal L [employer]. - Closure device: Mynx Technical Procedure: The [...] for a 45cm 5F Destination. V18 and Eland a nd QuickCross catheters were used to [...] bifurcation. Access appeared in the distal R [employer]. Closure and sheath removal was performed with [...] (ABNORMAL) Differential, Automated (08/10/2017 5:50 AM EST) [facility] Method Time Signature Neutrophils % 80.1 % [facility] LABORATORY Neutr Abs (ANC) 9.01 (H) 1.70 - [facility] [address] [facility] x10(3)/[facility] LABORATORY Lymphocytes % 8.8 % [facility] LABORATORY Lymphocytes Abs 1.0 0.9 - 3.2 [facility] x10(3)/[facility] LABORATORY Monocytes % 8.3 % [facility] LABORATORY Monocyte Abs 0.9 0.3 - 0.9 [facility] x10(3)/[facility] LABORATORY Eosinophils % 2.0 % [facility] LABORATORY Eosinophils Abs 0.2 0.0 - 0.4 [facility] x10(3)/[facility] LABORATORY Basophils % 0.4 % [facility] LABORATORY Basophils Abs 0.0 0.0 - 0.1 [facility] x10(3)/[facility] LABORATORY Immature Gran % 0.40 % BAR[facility] [...] Organization Address City/State/[place] [address] (ABNORMAL) Hemogram (08/10/2017 5:50 AM EST) Analysis Performed At Patho logist Time Signature WBC 11.3 (H) 4.0 - 9.5 [facility] x10(3)/[facility] LABORATORY RBC 3.15 (L) 4.58 - [facility] 5.54 [facility] x10(6)/[facility] LABORATORY Hemoglobin 8.9 (L) 13.7 - [facility] 16.5 gm/dL [facility] LABORATORY Hematocrit 29.0 (L) 40.5 - [facility] 48.5 % [facility] LABORATORY MCV 92.1 82.9 - [facility] 93.1 [facility] LABORATORY MCH 28.3 27.5 - [facility] 32.1 pg [facility] LAB[facility]ATORY MCHC 30.7 (L) 32.0 - [facility] 35.7 gm/dL [facility] LAB[facility]ORY Platelets 231 145 - 357 [facility] x10(3)/[facility] LABORATORY RDWSD 53.9 (H) 36.0 - [facility] 45.0 [facility] LABORATORY RDWCV 16.2 (H) 11.4 - [facility] 13.8 % [facility] LABORATORY MPV 8.7 7.6 - 12.9 [facility] LABORATORY nRBC % Auto 0.0 % [facility] LABORATORY nRBC Abs Auto 0.000 0.000 - [facility] [address] [facility] x10(3)/[facility] LABORATORY Specimen Anatomical Collection Method Collection Time Receive d Time (Source) Location / / Volume Laterality Blood specimen 08/10/2017 5:50 AM 018 5:59 (specimen) EST AM EST Resulting Agency Comment Spec In Lab Yonathan Smith MD HEMATOLOGY ORDERABLES Performing Organization Address City/[facility]/[place] [address] (ABNORMAL) Basic Metabolic Panel (non-fasting) (08/10/2017 5:50 AM EST) P athologist Signature Glucose Lvl 135 65 - 199 [facility] mg/dL [facility] Comment: Diabetes: >=200 mg/dL plus symp toms BUN 17 10 - 20 mg/dL [place] [...] or in patients with acute kidney failure. http://[employer]/DHnkdep http://[employer]/DHMCnkf Specimen Anatomical Collection Method Collection Time Receive d Time (Source) Location / / Volume Laterality Blood specimen 08/10/2017 5:50 AM 018 5:59 (specimen) EST AM EST Resulting Agency Comment Spec In Lab Yonathan Smith MD CHEMISTRY ORDERABLES Performing Organization Address City/State/[place] [address] (ABNORMAL) Prothrombin Time (08/10/2017 5:50 AM EST) athologist Signature PT 16.8 (H) 11.8 - 14.0 [facility] LABORATORY INR 1.4 (H) 0.9 - 1.1 [facility] [...] Organization Address City/State/[place] [address] (ABNORMAL) POCT Glucose (08/10/2017 4:01 AM EST) athologist Signature POC Glucose 206 (H) 65 - 199 [facility] mg/dL [facility] LABORATORY [...] Organization Address City/State/[place] [address] POCT Glucose (08/10/2017 2:01 AM EST) athologist Signature POC Glucose 188 65 - 199 [facility] mg/dL [facility] Comment: Supplemental ranges: <140 mg/dL before meals <180 mg/dL all other times of the day Specimen Anatomical Collection Method Collection Time Receive d Time (Source) Location / / Volume Laterality Blood specimen 08/10/2017 2:01 AM 018 2:01 (specimen) EST AM EST Yonathan Smith MD POINT OF CARE TEST ORDERABLE S Performing Organization Address City/[facility]/[place] [address] (ABNORMAL) POCT Glucose (08/09/2017 11:42 PM EST) athologist Signature POC Glucose 283 (H) 65 - 199 [facility] mg/dL [facility] Comment: Supplemental ranges: <140 mg/dL before meals <180 mg/dL all other times of the day Specimen Anatomical Collection Method Collection Time Receive d Time (Source) Location / / Volume Laterality Blood specimen 08/09/2017 11:42 8 (specimen) PM EST 11:42 PM EST Yonathan Smith MD POINT OF CARE TEST ORDERABLE S Performing Organization Address City/[facility]/[place] [address] POCT Glucose (08/09/2017 8:55 PM EST) athologist Signature POC Glucose 182 65 - 199 [facility] mg/dL [facility] LABORATORY [...] Organization Address City/State/[place] [address] (ABNORMAL) APTT (08/09/2017 6:42 PM EST) P athologist Signature PTT 90 (H) 25 - 35 sec [place] [...] Address City/State/ZIP Code Phon e Number [address] POCT Glucose (08/09/2017 4:41 PM EST) athologist Signature POC Glucose 195 65 - 199 [facility] mg/dL [facility] Comment: Supplemental ranges: <140 mg/dL before meals <180 mg/dL all other times of the day Specimen Anatomical Collection Method Collection Time Receive d Time (Source) Location / / Volume Laterality Blood specimen 08/09/2017 4:41 PM 018 4:41 (specimen) EST PM EST Yonathan Smith MD POINT OF CARE TEST ORDERABLE S Performing Organization Address City/[facility]/[place] [address] POCT Glucose (08/09/2017 12:29 PM EST) athologist Signature POC Glucose 140 65 - 199 [facility] mg/dL [facility] Comment: Supplemental ranges: <140 mg/dL before meals <180 mg/dL all other times of the day Specimen Anatomical Collection Method Collection Time Receive d Time (Source) Location / / Volume Laterality Blood specimen 08/09/2017 12:29 8 (specimen) PM EST 12:29 PM EST Yonathan Smith MD POINT OF CARE TEST ORDERABLE S Performing Organization Address City/[facility]/ZIP Code Phon e Number [address] POCT Glucose (08/09/2017 9:59 AM EST) athologist Signature POC Glucose 135 65 - 199 [facility] mg/dL [facility] Comment: Supplemental ranges: <140 mg/dL before meals <180 mg/dL all other times of the day Specimen Anatomical Collection Method Collection Time Receive d Time (Source) Location / / Volume Laterality Blood specimen 08/09/2017 9:59 AM 018 9:59 (specimen) EST AM EST Yonathan Smith MD POINT OF CARE TEST ORDERABLE S Performing Organization Address [facility]/ZIP Code Phon e Number [address] Specimen to Pathology (08/09/2017 8:41 AM EST) Specimen Anatomical Collection Method Collection Time Receive d Time (Source) Location / / Volume Laterality AP Specimen 08/09/2017 8:41 AM 8 8:41 EST AM EST Narrative [facility] LABORAT ORY - 08/09/2017 8:41 AM EST Specimen requisition ordered. ??Separate Pathology report to follow Yonathan Smith MD PATHOLOGY/CYTOLOGY ORDERABLE S Performing Organization Address City/[facility]/[place] [address] Surgical Pathology Report (08/09/2017 8:40 AM EST) Component Value Ref Test Analysis Performed At [facility] Range Method Time Signature Surgical [id number] ? Location: [address] [place] [address]; A [facility] Report The signing pathologist has (i) examined the relevant preparation(s) for the [facility] specimen(s) and (ii) rendered or [...] [facility] Dept. of Pathology, [place], [place] CLINICAL INFORMATION Specimen Submitted: A - [...] MD PATHOLOGY/CYTOLOGY ORDERABLE S Performing Organization Address City/State/[facility] [place] [address] Anaerobic Culture (08/09/2017 8:30 AM EST) [facility] gist Method Time Signature Anaerobic No anaerobic [facility] Culture organisms [facility] LABORATORY Specimen Anatomical Collection Method [...] - GENERAL ORDER ROBSON Performing Organization Address City/[facility]/[place] [address] (ABNORMAL) Abscess/Wound Aspirate Culture (08/09/2017 8:30 AM EST) [facility] Method Time Signature Abscess/Wound Moderate mixed [place] Aspirate bacterial [place] Culture morphotypes [facility] normal LABORATORY cutaneous leroy (A) Gram Stain Rare White Blood Cells [place] Few Gram Positive Cocci in pairs [place] () [facility] Organism Gram Positive [place] Cocci in pairs [place] () [facility] LAB[facility] Specimen [...] - GENERAL ORDER ROBSON Performing Organization Address City/[facility]/[place] [address] POCT Glucose (08/09/2017 4:28 AM EST) P athologist Signature POC Glucose 128 65 - 199 [facility] mg/dL [facility] LABORATORY [...] Address City/State/ZIP Code Phon e Number [address] ABORH Recheck Status (08/09/2017 1:10 AM EST) [facility] Method Time Signature ABORH Type Completed [facility] LABORATORY Specimen Anatomical Collection Method Collection Time Receive d Time (Source) Location / / Volume Laterality Blood specimen 08/09/2017 1:10 AM 018 1:35 (specimen) EST AM EST Resulting Agency Comment Spec In Lab Yonathan Smith MD BLOOD BANK ORDERABLES Performing Organization Address City/[facility]/[place] [address] Antibody screen (08/09/2017 1:10 AM EST) Patholo gist Method Time Signature Ab Screen Negative [facility] LABORATORY Expires at 08/12/2017 [place] ZHAOSU [id number] on: [facility] LAB[facility]ORY Specimen Anatomical Collection Method Collection Time Receive d Time (Source) Location / / Volume Laterality Blood specimen 08/09/2017 1:10 AM 018 1:35 (specimen) EST AM EST Resulting Agency Comment Spec In Lab Yonathan Smith MD BLOOD BANK ORDERABLES Performing Organization Address City/[facility] [place] [address] ABO/Rh Typing (08/09/2017 1:10 AM EST) P athologist Signature ABORh Type O Pos [facility] LABORATORY Specimen Anatomical Collection Method Collection Time Receive d Time (Source) Location / / Volume Laterality Blood specimen 08/09/2017 1:10 AM 018 1:35 (specimen) EST AM EST Resulting Agency Comment Spec In Lab Yonathan Smith MD BLOOD BANK ORDERABLES Performing Organization Address City/[facility] [place] [address] (ABNORMAL) APTT (08/09/2017 1:10 AM EST) P athologist Signature PTT 86 (H) 25 - 35 sec [place] [...] City/State/ZIP Code Phon e Number [place] [id number] [address] (ABNORMAL) Differential, Automated (08/09/2017 1:10 AM EST) [facility] Method Time Signature Neutrophils % 76.2 % [facility] LABORATORY Neutr Abs (ANC) 8.59 (H) 1.70 - [facility] 6.10 [facility] x10(3)/[facility] LABORATORY Lymphocytes % 11.0 % [facility] LABORATORY Lymphocytes Abs 1.2 0.9 - 3.2 [facility] x10(3)/[facility] LABORATORY Monocytes % 8.4 % [facility] LABORATORY Monocyte Abs 1.0 (H) 0.3 - 0.9 [facility] x10(3)/[facility] LABORATORY Eosinophils % 3.5 % [facility] LABORATORY Eosinophils Abs 0.4 0.0 - 0.4 [facility] x10(3)/[facility] LABORATORY Basophils % 0.5 % [facility] LABORATORY Basophils Abs 0.1 0.0 - 0.1 [facility] x10(3)/[facility] LABORATORY Immature Gran % 0.40 % [place] [...] Organization Address City/State/[place] [address] (ABNORMAL) Hemogram (08/09/2017 1:10 AM EST) Analysis Performed At Patho logist Time Signature WBC 11.3 (H) 4.0 - 9.5 [facility] x10(3)/[facility] LABORATORY RBC 3.47 (L) 4.58 - [facility] 5.[address] [facility] x10(6)/[facility] LABORATORY Hemoglobin 10.0 (L) 13.7 - [facility] 16.5 gm/dL [facility] LABORATORY Hematocrit 31.9 (L) 40.5 - [facility] 48.5 % [facility] LABORATORY MCV 91.9 82.9 - [facility] 93.1 [facility] LABORATORY MCH 28.8 27.5 - [facility] 32.1 pg [facility] LABORATORY MCHC 31.3 (L) 32.0 - [facility] 35.7 gm/dL [facility] LAB[facility]ORY Platelets 234 145 - 357 [facility] x10(3)/[facility] LABORATORY RDWSD 54.0 (H) 36.0 - [facility] 45.0 [facility] LABORATORY RDWCV 16.2 (H) 11.4 - [facility] 13.8 % [facility] LABORATORY MPV 8.7 7.6 - 12.9 [facility] LABORATORY nRBC % Auto 0.0 % [facility] LABORATORY nRBC Abs Auto 0.000 0.000 - [facility] [address] [facility] x10(3)/[facility] LABORATORY Specimen Anatomical Collection Method Collection Time Receive d Time (Source) Location / / Volume Laterality Blood specimen 08/09/2017 1:10 AM 018 1:19 (specimen) EST AM EST Resulting Agency Comment Spec In Lab Yonathan Smith MD HEMATOLOGY ORDERABLES Performing Organization Address City/State/[place] [address] (ABNORMAL) Prothrombin Time (08/09/2017 [...] Organization Address City/State/[place] [address] (ABNORMAL) Basic Metabolic Panel (non-fasting) (08/09/2017 1:10 AM EST) athologist Signature Glucose Lvl 108 65 - 199 [facility] mg/dL [facility] Comment: Diabetes: >=200 mg/dL plus symp toms BUN 34 (H) 10 - 20 mg/dL [facility] LABORATORY Creatinine 1.54 (H) 0.80 - 1.50 mg/dL [facility] [...] Estimated GFR 45 (L) >=60 [facility] LABORATORY Comment: The reported eGFR should be multiplied b y 1.2 for patients. The MDRD is not an appropriate measure o f renal function for patients with body mass extremes or in patients with acute kidney failure. http://[employer]/DHnkdep http://[employer]/DHMCnkf Specimen Anatomical Collection Method Collection Time Receive d Time (Source) Location / / Volume Laterality Blood specimen 08/09/2017 1:10 AM 018 1:19 (specimen) EST AM EST Resulting Agency Comment Spec In Lab Yonathan Smith MD CHEMISTRY ORDERABLES Performing Organization Address City/[facility] Code Phon e Number [address] POCT Glucose (08/09/2017 12:05 AM EST) athologist Signature POC Glucose 128 65 - 199 [facility] mg/dL [facility] LAB[facility]ORY Comment: Supplemental ranges: <140 mg/dL before meals <180 mg/dL all other times of the day Specimen Anatomical Collection Method Collection Time Receive d Time (Source) Location / / Volume Laterality Blood specimen 08/09/2017 12:05 8 (specimen) AM EST 12:05 AM EST Yonathan Smith MD POINT OF CARE TEST ORDERABLE S Performing Organization Address City/[facility]/[place] [address] (ABNORMAL) POCT Glucose (08/08/2017 7:36 PM EST) athologist Signature POC Glucose 215 (H) 65 - 199 [place] [place] mg/dL [facility] LAB[facility] Comment: Supplemental ranges: <140 mg/dL before meals <180 mg/dL all other times of the day Specimen Anatomical Collection Method Collection Time Receive d Time (Source) Location / / Volume Laterality Blood specimen 08/08/2017 7:36 PM 018 7:36 (specimen) EST PM EST Yonathan Smith MD POINT OF CARE TEST ORDERABLE S Performing Organization Address City/[facility]/[place] [address] (ABNORMAL) POCT Glucose (08/08/2017 6:23 PM EST) athologist Signature POC Glucose 216 (H) 65 - 199 [facility] mg/dL [facility] Comment: Supplemental ranges: <140 mg/dL before meals <180 mg/dL all other times of the day Specimen Anatomical Collection Method Collection Time Receive d Time (Source) Location / / Volume Laterality Blood specimen 08/08/2017 6:23 PM 018 6:23 (specimen) EST PM EST Yonathan Smith MD POINT OF CARE TEST ORDERABLE S Performing Organization Address City/State/ZIP Code [facility] e Number [address] (ABNORMAL) APTT (08/08/2017 6:00 PM EST) athologist [facility] PTT 97 (H) 25 - 35 sec [place] [...] Address City/State/ZIP Code Phon e Number [address] POCT Glucose (08/08/2017 4:42 PM EST) athologist Signature POC Glucose 78 65 - 199 [facility] mg/dL [facility] LABORATORY [...] Address City/State/ZIP Code Phon e Number [address] (ABNORMAL) POCT Glucose (08/08/2017 4:01 PM EST) athologist Signature POC Glucose 58 (L) 65 - 199 [facility] mg/dL [facility] Comment: Supplemental ranges: <140 mg/dL before meals <180 mg/dL all other times of the day Specimen Anatomical Collection Method Collection Time Receive d Time (Source) Location / / Volume Laterality Blood specimen 08/08/2017 4:01 PM 018 4:01 (specimen) EST PM EST Yonathan Smith MD POINT OF CARE TEST ORDERABLE S Performing Organization Address City/[facility]/[place] [address] POCT Glucose (08/08/2017 11:51 AM EST) athologist Signature POC Glucose 90 65 - 199 [facility] mg/dL [facility] LABORATORY [...] Organization Address City/State/[place] [address] (ABNORMAL) APTT (08/08/2017 10:27 AM EST) athologist Signature PTT 64 (H) 25 - 35 sec [place] [...] Organization Address City/State/[place] [address] POCT Glucose (08/08/2017 8:02 AM EST) athologist Signature POC Glucose 178 65 - 199 [facility] mg/dL [facility] LAB[facility]ORY Comment: Supplemental ranges: <140 mg/dL before meals <180 mg/dL all other times of the day Specimen Anatomical Collection Method Collection Time Receive d Time (Source) Location / / Volume Laterality Blood specimen 08/08/2017 8:02 AM 018 8:02 (specimen) EST AM EST Yonathan Smith MD POINT OF CARE TEST ORDERABLE S Performing Organization Address City/[facility] [place] [address] (ABNORMAL) APTT (08/08/2017 4:51 AM EST) athologist Signature PTT >160 25 - 35 [facility] (Critical) sec [facility] Comment: Called by: HOWARD, Read [...] Smith MD HEMATOLOGY ORDERABLES Performing Organization Address City/[facility]/ZIP [facility] [place] [address] (ABNORMAL) Differential, Automated (08/08/2017 4:51 AM EST) Patholo gist Method Time Signature Neutrophils % 77.9 % [facility] LABORATORY Neutr Abs (ANC) 8.17 (H) 1.70 - [facility] 6.[address] [facility] x10(3)/[facility] LABORATORY Lymphocytes % 10.3 % [facility] LABORATORY Lymphocytes Abs 1.1 0.9 - 3.2 [facility] x10(3)/[facility] LABORATORY Monocytes % 7.0 % [facility] LABORATORY Monocyte Abs 0.7 0.3 - 0.9 [facility] x10(3)/[facility] LABORATORY Eosinophils % 3.6 % [facility] LABORATORY Eosinophils Abs 0.4 0.0 - 0.4 [facility] x10(3)/[facility] LABORATORY Basophils % 0.5 % [facility] LABORATORY Basophils Abs 0.0 0.0 - 0.1 [facility] x10(3)/[facility] LABORATORY Immature Gran % 0.70 % [...] Organization Address City/State/[place] [address] (ABNORMAL) Hemogram (08/08/2017 4:51 AM EST) Analysis Performed At Patho logist Time Signature WBC 10.5 (H) 4.0 - 9.5 [facility] x10(3)/[facility] LABORATORY RBC 3.27 (L) 4.58 - [place] [facility] [address] [facility] x10(6)/[facility] LABORATORY Hemoglobin 9.3 (L) 13.7 - [facility] 16.5 gm/dL [facility] LABORATORY Hematocrit 30.3 (L) 40.5 - [facility] 48.5 % [facility] LABORATORY MCV 92.7 82.9 - [facility] 93.1 [facility] LABORATORY MCH 28.4 27.5 - [facility] 32.1 pg [facility] LABORATORY MCHC 30.7 (L) 32.0 - [facility] 35.7 gm/dL [facility] LABORATORY Platelets 252 145 - 357 [facility] x10(3)/[facility] LABORATORY RDWSD 54.6 (H) 36.0 - [facility] 45.0 [facility] RDWCV 16.2 (H) 11.4 - [facility] 13.8 % [facility] LABORATORY MPV 9.1 7.6 - 12.9 [facility] LABORATORY nRBC % Auto 0.0 % [facility] LABORATORY nRBC Abs Auto 0.000 0.000 - [facility] [address] [facility] x10(3)/[facility] LABORATORY Specimen Anatomical Collection Method Collection Time Receive d Time (Source) Location / / Volume Laterality Blood specimen 08/08/2017 4:51 AM 018 5:14 (specimen) EST AM EST Resulting Agency Comment Spec In Lab Yonathan Smith MD HEMATOLOGY ORDERABLES Performing Organization Address City/State/[place] [address] (ABNORMAL) Prothrombin Time (08/08/2017 4:51 AM EST) P athologist Signature PT 18.1 (H) 11.8 - 14.0 [facility] LABORATORY INR 1.5 (H) 0.9 - 1.1 [facility] [...] Organization Address City/State/[place] [address] (ABNORMAL) Basic Metabolic Panel (non-fasting) (08/08/2017 4:51 AM EST) athologist Signature Glucose Lvl 229 (H) 65 - 199 [facility] mg/dL [facility] LAB[facility]ORY Comment: Diabetes: >=200 mg/dL plus symp toms BUN 35 (H) 10 - 20 mg/dL [facility] LABORATORY Creatinine 1.57 (H) 0.80 - 1.50 mg/dL [facility] Chloride 94 (L) 98 - 107 mmol/L [facility] LABORATORY CO2 25 22 - 31 mmol/L [facility] LABORATORY Anion Gap 17 (H) 5 - 15 mmol/L [facility] LABORATORY Calcium 7.9 (L) 8.5 - 10.5 mg/dL [facility] LABORATORY Estimated GFR 44 (L) >=60 [facility] LABORATORY Comment: The reported eGFR should be multiplied b y 1.2 for patients. The MDRD is not an appropriate measure o f renal function for patients with body mass extremes or in patients with acute kidney failure. http://[employer]/DHnkdep http://[employer]/DHMCnkf Specimen Anatomical Collection Method Collection Time Receive d Time (Source) Location / / Volume Laterality Blood specimen 08/08/2017 4:51 AM 018 5:14 (specimen) EST AM EST Resulting Agency Comment Spec In Lab Yonathan Smith MD CHEMISTRY ORDERABLES Performing Organization Address City/[facility]/ZIP Code Phon e Number [address] POCT Glucose (08/08/2017 4:20 AM EST) athologist Signature POC Glucose 193 65 - 199 [facility] mg/dL [facility] LAB[facility]ORY Comment: Supplemental ranges: <140 mg/dL before meals <180 mg/dL all other times of the day Specimen Anatomical Collection Method Collection Time Receive d Time (Source) Location / / Volume Laterality Blood specimen 08/08/2017 4:20 AM 018 4:20 (specimen) EST AM EST Yonathan Smith MD POINT OF CARE TEST ORDERABLE S Performing Organization Address City/[facility]/ZIP Code Phon e Number [address] POCT Glucose (08/07/2017 11:11 PM EST) athologist Signature POC Glucose 124 65 - 199 [facility] mg/dL [facility] LAB[facility]ORY Comment: Supplemental ranges: <140 mg/dL before meals <180 mg/dL all other times of the day Specimen Anatomical Collection Method Collection Time Receive d Time (Source) Location / / Volume Laterality Blood specimen 08/07/2017 11:11 8 (specimen) PM EST 11:11 PM EST Yonathan Smith MD POINT OF CARE TEST ORDERABLE S Performing Organization Address City/[facility]/ZIP Code Phon e Number [address] (ABNORMAL) APTT (08/07/2017 10:18 PM EST) athologist Signature PTT 114 (H) 25 - 35 sec [place] [...] Smith MD HEMATOLOGY ORDERABLES Performing Organization Address City/[facility]/ZIP Code Phon e Number [address] POCT Glucose (08/07/2017 8:10 PM EST) athologist Signature POC Glucose 140 65 - 199 [facility] mg/dL [facility] Comment: Supplemental ranges: <140 mg/dL before meals <180 mg/dL all other times of the day Specimen Anatomical Collection Method Collection Time Receive d Time (Source) Location / / Volume Laterality Blood specimen 08/07/2017 8:10 PM 018 8:10 (specimen) EST PM EST Yonathan Smith MD POINT OF CARE TEST ORDERABLE S Performing Organization Address City/[facility]/ZIP Code Phon e Number [address] POCT Glucose (08/07/2017 5:27 PM EST) athologist Signature POC Glucose 187 65 - 199 [facility] mg/dL [facility] Comment: Supplemental ranges: <140 mg/dL before meals <180 mg/dL all other times of the day Specimen Anatomical Collection Method Collection Time Receive d Time (Source) Location / / Volume Laterality Blood specimen 08/07/2017 5:27 PM 018 5:27 (specimen) EST PM EST Yonathan Smith MD POINT OF CARE TEST ORDERABLE S Performing Organization Address City/[facility]/ZIP Code Phon e Number [address] POCT Glucose (08/07/2017 3:29 PM EST) athologist Signature POC Glucose 86 65 - 199 [facility] mg/dL [facility] Comment: Supplemental ranges: <140 mg/dL before meals <180 mg/dL all other times of the day Specimen Anatomical Collection Method Collection Time Receive d Time (Source) Location / / Volume Laterality Blood specimen 08/07/2017 3:29 PM 018 3:29 (specimen) EST PM EST Yonathan Smith MD POINT OF CARE TEST ORDERABLE S Performing Organization Address City/[facility]/[place] [address] (ABNORMAL) APTT (08/07/2017 2:50 PM EST) athologist [facility] PTT 60 (H) 25 - 35 sec [place] [...] Smith MD HEMATOLOGY ORDERABLES Performing Organization Address City/[facility]/[place] [address] (ABNORMAL) POCT Glucose (08/07/2017 2:23 PM EST) athologist Signature POC Glucose 55 (L) 65 - 199 [facility] mg/dL [facility] Comment: Supplemental ranges: <140 mg/dL before meals <180 mg/dL all other times of the day Specimen Anatomical Collection Method Collection Time Receive d Time (Source) Location / / Volume Laterality Blood specimen 08/07/2017 2:23 PM 018 2:23 (specimen) EST PM EST Yonathan Smith MD POINT OF CARE TEST ORDERABLE S Performing Organization Address City/[facility]/ZIP [place] [address] [facility] [address] POCT Glucose (08/07/2017 12:08 PM EST) P athologist Signature POC Glucose 77 65 - 199 [facility] mg/dL [facility] [...] Address City/State/ZIP Code Phon e Number [address] (ABNORMAL) Differential, Automated (08/07/2017 7:30 AM EST) Patholo gist Method Time Signature Neutrophils % 73.8 % [facility] Neutr Abs (ANC) 7.17 (H) 1.70 - [facility] [address] [facility] x10(3)/[facility] LABORATORY Lymphocytes % 12.2 % [facility] Lymphocytes Abs 1.2 0.9 - 3.2 [facility] x10(3)/[facility] LABORATORY Monocytes % 9.0 % [facility] Monocyte Abs 0.9 0.3 - 0.9 [facility] x10(3)[facility] LABORATORY Eosinophils % 3.9 % [facility] Eosinophils Abs 0.4 0.0 - 0.4 [facility] x10(3)/[facility] LABORATORY Basophils % 0.6 % [facility] Basophils Abs 0.1 0.0 - 0.1 [facility] x10(3)/[facility] LABORATORY Immature Gran % 0.50 % [facility] Comment: Immature [...] Organization Address City/State/[place] [address] (ABNORMAL) Hemogram (08/07/2017 7:30 AM EST) Analysis Performed At Patho logist Time Signature WBC 9.7 (H) 4.0 - 9.5 [facility] x10(3)/[facility] LABORATORY RBC 3.54 (L) 4.58 - [facility] [address].54 [facility] x10(6)/[facility] LABORATORY Hemoglobin 9.9 (L) 13.7 - [facility] 16.5 gm/dL [facility] Hematocrit 32.3 (L) 40.5 - [facility] 48.5 % [facility] MCV 91.2 82.9 - [facility] 93.1 [facility] LABORATORY MCH 28.0 27.5 - [facility] 32.1 pg [facility] MCHC 30.7 (L) 32.0 - [facility] 35.7 gm/dL [facility] Platelets 312 145 - 357 [facility] x10(3)/[facility] LABORATORY RDWSD 53.2 (H) 36.0 - [facility] 45.0 [facility] LABORATORY RDWCV 16.0 (H) 11.4 - [facility] 13.8 % [facility] MPV 8.9 7.6 - 12.9 [facility] LABORATORY nRBC % Auto 0.0 % [facility] nRBC Abs Auto 0.000 0.000 - [facility] [address] [facility] x10(3)/[facility] LABORATORY Specimen Anatomical Collection Method Collection Time Receive d Time (Source) Location / / Volume Laterality Blood specimen 08/07/2017 7:30 AM 018 7:45 (specimen) EST AM EST Resulting Agency Comment Spec In Lab Yonathan Smith MD HEMATOLOGY ORDERABLES Performing Organization Address City/State/[place] [address] (ABNORMAL) Basic Metabolic Panel (non-fasting) (08/07/2017 7:30 AM EST) P athologist Signature Glucose Lvl 80 65 - 199 [facility] mg/dL [facility] Comment: Diabetes: >=200 mg/dL plus symp toms BUN 31 (H) 10 - 20 mg/dL [facility]OR[facility]ORY Creatinine 1.22 0.80 - 1.50 mg/dL [facility] [...] estions. Chloride 99 98 - 107 mmol/L [facility] CO2 29 22 - 31 mmol/L [facility] Anion Gap 12 5 - 15 mmol/L [facility] Calcium 8.5 8.5 - 10.5 mg/dL [facility]ORY Estimated GFR 59 (L) >=60 [facility] Comment: The reported eGFR should be multiplied b y 1.2 for patients. The MDRD is not an appropriate measure o f renal function for patients with body mass extremes or in patients with acute kidney failure. http://[employer]/DHnkdep http://[employer]/DHMCnkf Specimen Anatomical Collection Method Collection Time Receive d Time (Source) Location / / Volume Laterality Blood specimen 08/07/2017 7:30 AM 018 7:45 (specimen) EST AM EST Resulting Agency Comment Spec In Lab Yonathan Smith MD CHEMISTRY ORDERABLES Performing Organization Address City/[facility]/ZIP Code Phon e Number [address] POCT Glucose (08/07/2017 7:27 AM EST) athologist Signature POC Glucose 81 65 - 199 [facility] mg/dL [facility] Comment: Supplemental ranges: <140 mg/dL before meals <180 mg/dL all other times of the day Specimen Anatomical Collection Method Collection Time Receive d Time (Source) Location / / Volume Laterality Blood specimen 08/07/2017 7:27 AM 018 7:27 (specimen) EST AM EST Yonathan Smith MD POINT OF CARE TEST ORDERABLE S Performing Organization Address [facility] Phon e Number [address] APTT (08/07/2017 7:04 AM EST) athologist [facility] PTT 34 25 - 35 sec [facility] [...] Smith MD HEMATOLOGY ORDERABLES Performing Organization Address City/[facility]/ZIP [facility] [place] [address] (ABNORMAL) Prothrombin Time (08/07/2017 7:04 AM EST) athologist [facility] PT 17.3 (H) 11.8 - 14.0 [facility] LABORATORY INR 1.4 (H) 0.9 - 1.1 [facility] [...] Smith MD HEMATOLOGY ORDERABLES Performing Organization Address City/[facility]/ZIP Code Phon e Number [address] POCT Glucose (08/07/2017 4:03 AM EST) athologist Signature POC Glucose 93 65 - 199 [facility] mg/dL [facility] Comment: Supplemental ranges: <140 mg/dL before meals <180 mg/dL all other times of the day Specimen Anatomical Collection Method Collection Time Receive d Time (Source) Location / / Volume Laterality Blood specimen 08/07/2017 4:03 AM 018 4:03 (specimen) EST AM EST Yonathan Smith MD POINT OF CARE TEST ORDERABLE S Performing Organization Address City/[facility]/ZIP Code Phon e Number [address] POCT Glucose (08/07/2017 12:04 AM EST) athologist Signature POC Glucose 107 65 - 199 [facility] mg/dL [facility] Comment: Supplemental ranges: <140 mg/dL before meals <180 mg/dL all other times of the day Specimen Anatomical Collection Method Collection Time Receive d Time (Source) Location / / Volume Laterality Blood specimen 08/07/2017 12:04 8 (specimen) AM EST 12:04 AM EST Yonathan Smith MD POINT OF CARE TEST ORDERABLE S Performing Organization Address City/[facility]/ZIP Code Phon e Number [address] POCT Glucose (08/06/2017 7:56 PM EST) P athologist Signature POC Glucose 178 65 - 199 [facility] mg/dL [facility] [...] Organization Address City/State/[place] [address] TcPO2 (08/06/2017 2:32 PM EST) Component Value Ref Test Analysis Performed At Patholo gist Range Method Time Signature VB Text Department: Vascular Surgery Lab VASCUBASE Report Patient: [id number] (GREGORY HOANG) CPT: 0088616 ICD10: I99.8 Referring Physician: YONATHAN SMITH ?? [...] Truong, RN) 08 (Given - Provider: Dory Trunog, VAMSI) 400 mg, Oral, 2 TIMES DAILY, [...] documented in this encounter Care Teams Computer Engineering Technologist Relationship Specialty Start Date End Date Lovely Vicente MD PCP - General 04/16/[address] [place] [address] [address] [place] [address] documented as of this encounter
--- OUTSIDE RECORDS SUMMARY | 2022-03-04 14:53 | XMS_ITS | Encounter Summary ---
:1945 [place] [address] Care Team Providers Name Role Phone Lovely Vicente MD Primary Care Provider Encounter Details Date Type Department Care Team Description 08/09/2017 Clinical Support Same Day at [facility] Canceled (D-SCHED ERROR [facility] / CORRECT ION ) [place] [address] Social History Tobacco Use Types Packs/Day [...] MD [facility] CARDIOLOGY [place], [place] [address] (Wo rk) 06/10/2022 Office Visit Dermatology Laura Scherer MD [facility] DR [facility]DER[facility] OLOGY [place], [place] [address] (Wo rk) documented as of this encounter Procedures Procedure Name Priority Date/Time Associated Diagnosis Comme nts CERTIFIED PERSONAL FINANCE COUNSELOR 08/09/2017 12:00 AM Resul ts for this SCAN EST procedure are i n the results section. documented in this encounter Results SCAN DOC: CERTIFIED PERSONAL FINANCE COUNSELOR (08/09/2017 12:00 AM EST) Narrative 08/09/2017 12:00 AM EST This result has an attachment that is no t available. Ordered by an unspecified provider. Scanning Provider MEDIA MGR SCAN EXT ORDR/RSLT documented in this encounter Visit Diagnoses Not on filedocumented in this encounter Care Teams Harness Tier Relationship Specialty Start Date End Date Lovely Vicente MD PCP - General 04/16/[address] [place] [address] documented as of this encounter
--- OUTSIDE RECORDS SUMMARY | 2022-03-04 14:53 | XMS_ITS | Encounter Summary ---
:1945 Author Organization [facility] [place] [address] Care Team Providers Name Role Phone Lovely Vicente MD Primary Care Provider Reason for Visit Auth/Cert Specialty Diagnoses / Procedures Referred By Contact Refer red To Contact Diagnoses Critical lower limb ischemia CELLULITIS RT FOOT Procedures EMERGENCY Referral ID Status Reason Start Date Expiration Date Visits Requ ested Visits Authorized [id number] 1 1 Encounter Details Date Type Department Care Team Description 08/11/2017 Surgery Main Operating Room Yonathan Smith (M SURG) DRESSING CHANGE Barbara Ocampo MD (FOR OTHER THAN IVAN) [facility] UNDER ANES. (WRVU 0.86) [facility] DR Siddiqu[place] [address] [place] [id number] [phone] (Wo rk) Social History Tobacco Use Types [...] addition to a pseudoaneurysm of his R DEBURRING AND TOOLING MACHINE OPERATOR and bilateral anterior tibial artery occlusions. [...] Dorsalis Pedis (Ankle) Artery ?132 ? 0.94 ??Hoke-Biphasic ? Posterior Tibial (Ankle) Artery ??154 ? 1.10 ??Hoke-Biphasic ? Fourth Toe ? 67 ?0.48 ?? [...] the foot. Discharge Conditions/Prognosis: Good Discharge to: [facility] Rehab Discharge Medications: Your Medications New Medications [...] For any problems or questions please call [phone] ZELDA Smith, traffic line painter Nurse Clinician For issues on weeknights after 5pm and weekends please call [phone] and ask for the Vascular Fellow service station operator. General Instructions None Future Appointments and Orders Future Appointments Provider Department Dept Phone 08/26/2017 4:00 PM Aurelia Rivera PA [facility] [place] [phone] 09/07/2017 3:00 PM LAB, THREE L Lab 3L [facility] [phone] 09/07/2017 4:00 PM Luz Prescott MD [facility]ocrinology [facility] [place] [phone] 09/09/2017 8:00 AM Barbra Soares APRN [facility] Management [facility] [place] [phone] Please bring a list of your current [...] For any problems or questions please call [phone] ZELDA Smith, traffic line painter Nurse Clinician For issues on weeknights after 5pm and weekends please call [phone] and ask for the Vascular Fellow service station operator. documented in this encounter Medications at [...] Discharge Note Patient Destination: [facility] ([facility]) [address] [place] [id number] Transportation: with (at bedside) Time of Discharge: by 12 noon Level of Care: swing Patient Aware: yes Family Notified: yes Md to call report to: Yissel Quintero CONSTRUCTION TRENCH DIGGER already called RN to call report to: [phone] Shirin Wolf Office of Care Management Pager [phone] Shirin Wagner RN - 08/16/2017 10:50 AM EST [facility] has offered pt swing bed. Pt and accept bed. will transport via car. CONSTRUCTION TRENCH DIGGER Yissel Quintero aware; d/c paperwork will be completed by 12 noon. [facility] requests pt arrival by 1400 today; CONSTRUCTION TRENCH DIGGER, RN, and family aware. CONSTRUCTION TRENCH DIGGER called [facility] and was told that they prefer pt to arrive with wound vac dressing applied but clamped. CONSTRUCTION TRENCH DIGGER applied new wound vac dressing. RN has [facility] number to call report. PASSR completed; CONSTRUCTION TRENCH DIGGER paged to request provider signature in highlighted space. Indigo from [facility] notified via email that home wound vac now cancelled; [facility] has picked up from room and order cancelled. Packet started and provided to community engagement specialist. Medicare important message explained to patient, patient signed. Copy provided to patient and signature page to OCM for inclusion in pt EMR. Radha Georges - 08/16/2017 10:34 AM EST Office of Care Management/Survey Technician Patient Name: Gregory Hoang : 1945 Patient has been offered a swing bed at [facility]. The patient will be transported by private transportation. No MD to MD report necessary Please call Nursing Report to [phone], ask for pit worker power shovel. Info to accompany patient: Narcotic Prescriptions Copies of Medication Administration Records and IV sheets for past 10 days. Plan: Survey Technician will be available to the patient and Dispatcher Service-RN and/or Prune Washer for further assistance. Patient will be discharged to: [facility] [address] [place] [address] [id number] Radha Powers, Survey Technician Mira Black, VAMSI - 08/15/2017 10:05 PM EST [address] Flores to ask if he wanted to hold metoprolol dose. BP 95/58. OK to hold this dose Courtney Brito - 08/15/2017 3:26 PM EST Office of Care Management(OCM)/Survey Technician(RS)/ D/C Planning re : Patient is medically ready for d/c today. RS has been in contact with [facility] to see if they could offer a bed. [facility] is still reviewing the case and need their MD to review chart prior to accepting or declining. OCM team needs to check in with [place] tomorrow to check on status. 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 Vac in place. Rehab referrals ongoing. Can ambulate in hallway. Change VAC at bedside today. Naty Colindres RN - 08/14/2017 1:33 PM EST Patient Name: Gregory Hoang Patient Age: 72 y.o. Birthdate: 1945 Admit date: 08/06/2017 Attending Physician: Yonathan Smith MD We want him to go to a place for intensive therapy and not at a custodial where he will be just sitting there and not getting any therapy. . Contacted by direct care RN, who said that patient and would like information about patient's referral to: [facility] PHONE: [phone] FAX: [phone] CM spoke with RS who said that [...] rehab. Await recommendations from PT. Covering pager #[phone]. 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 Regional Sales Representative Kaitlin Saha, RN Pager #[phone] Payam Rosales - 08/13/2017 2:37 PM EST Glass Calibrator Encounter Note Patient Name: Gregory Hoang : [id number] MR#: [id number] Admit Date: 08/06/2017 1:41 PM Hospital Day 7 days Narrative: Visited to introduce and assess acceptance of Glass Calibrator services. Pt was awake, alert, oriented and in chair and family was there. Assessment:Patient coping positively with stresses of illness/hospitalization at this time. Pt says that he is hoping to get better and his family was there. Pt says that he has family care and supportand taking one day at time. Intervention and Outcome: Provided emotional support and encouraging presence. 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 A letter describing our affiliations was reviewed with them and theywere educated about their right to choose where referrals are placed. Patient requests referral to [facility] [employer]. PHONE: [phone] FAX: [phone]. And Home NPWT (Negative Pressure Wound Therapy) aka wound vac device made available to pt. Serial # confirmed. Reviewed [facility] Proof of Delivery/Assignment of Benefits Statement(POD/AOB) Form w patient or authorized agent signing on behalf of patient. Copy of POD/AOB provided to pt and other copy faxed to [employer] @ fax# [phone] Expected date of discharge: 08/12/2017. 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 Heparin gtt continues to run. [...] of : 1945 AGE 72 y.o. Address: [address] [place] [address] [place] [address] (home) Mobile: Telephone Information: Referring Provider: No [...] 7.93) performed by Yuan Retana MD at [facility] OR ??? 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 Unsuccessful draw attempt, another retail marketing coordinator will come [facility] to collect blood for PTT test. 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 Vascular resident service station operator and will forward result to the team prior to rounds. 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 [...] left blue toes with CTA showing R DEBURRING AND TOOLING MACHINE OPERATOR pseudoaneurysm (now thrombosed) and occluded ATs [...] 2.5x80 5. Completion RLE angiogram 6. L DEBURRING AND TOOLING MACHINE OPERATOR angiogram 7. 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 - L DEBURRING AND TOOLING MACHINE OPERATOR angriogram demonstrated: High femoral bifurcation over the proximal half of the femoral head. L DEBURRING AND TOOLING MACHINE OPERATOR access in the distal L DEBURRING AND TOOLING MACHINE OPERATOR. - Closure device: Mynx Technical Procedure: [...] for a 45cm 5F Destination. V18 and Midway and QuickCross catheters were used to select [...] 5F. A stationed picture of the L DEBURRING AND TOOLING MACHINE OPERATOR was performed as the patient was noted to have a very high bifurcation. Access appeared in the distal R DEBURRING AND TOOLING MACHINE OPERATOR. Closure and sheath removal was performed [...] PM EST 1440 report called to 5 nemo nurse Tessa AGUSTIN documented in this encounter Miscellaneous Notes Plan of Care - Dory Truong RN - 08/16/2017 10:51 AM EST Problem: Patient Care Overview Goal: Plan of Care Review Outcome: Outcome (s) achieved Date Met: 08/16/17 08/14/17 1939 08/16/17 8201 Coping/Psychosocial Plan Of Care Reviewed With -- patient Plan of Care Review Progress improving -- Discussed discharge instructions with pt and pt's spouse. Discharge to [facility]. Goal: Individualization & Mutuality Outcome: Outcome (s) [...] sit/sit to supine -- Bed Mobility Goal, Shackelford Level independent -- Bed Mobility Goal, Date [...] days -- Transfer Training Goal, Activity Type kyo-fx-ovefy/gqsup-tv-nip -- Transfer Train Goal, Shackelford Level conditional independence -- Transfer Train Goal, [...] call cabello within reach, Hourly rounding by RN/TOBACCO SIZER. Bed alarm / Chair alarm. Patient-specific fall [...] Smith MD - 08/15/2017 6:28 PM EST [facility] Operative Note Patient Name: Gregory Hoang : [id number] MR#: [id number] Case Date: 08/09/2017 Surgeon: Surgeon(s) and Role: [...] 2.5x80 5. Completion RLE angiogram 6. L DEBURRING AND TOOLING MACHINE OPERATOR angiogram 7. Mynx closure Precautions/Restrictions: fall, [...] other (see comments) (or swing bed) Pager: [phone] BASSAM ELIAS, PT 08/14/2017 Inpatient Physical Therapy [...] to Achieve by discharge Gait Training Goal, Shackelford Level conditional independence;set up required Gait Training [...] these facilities over the weekend except for [facility]. CM spoke with [facility] KANWAL Sandhu RN who said that they do not anticipate any beds over the weekend. Reviewed with patient/ that they need to be aware that patient will need to take the first bed offered at the facilities that they make referrals to. Their choices are: 1- [facility] PHONE: [phone] FAX: [phone] 2- [facility] ([facility]) [address] [place] [address] 3- [facility])([facility]) [address] [place] [address] I have discussed Medicare/Private Insurance [...] RS/CM on Wednesday to follow-up. Covering pager #[phone] for today. Plan of Care - Henrique [...] patient. History of Present Illness: Mr. Gregory Hoagn is a 72 y.o. male history of [...] with additional findings of pseudoaneurysm on R DEBURRING AND TOOLING MACHINE OPERATOR and bilateral anterior tibial artery occlusions. [...] an outpatient once discharged. Have patient call [phone] to set up an appointment. Follow-up: Dermatology will sign-off for now. Please do not hesitate to contact us if you have any questions orconcerns. Impression and Recommendations discussed with primary team on 08/13/2017. Karo Henderson MD Resident in Dermatology Section of Dermatology, Department of Surgery [facility] Pager [phone] Patient seen and evaluated with staff Food Technology Teacher: Halima Cordero MD Section of Dermatology [facility] Level of Resident Supervision: Direct [...] 2.5x80 5. Completion RLE angiogram 6. L DEBURRING AND TOOLING MACHINE OPERATOR angiogram 7. Mynx closure Active Non-Hospital [...] home with home health ([facility] PT[facility]) Pager: [phone] YASIR TELLO OT 08/12/2017 Occupational Therapy Rehabilitation [...] 2.5x80 5. Completion RLE angiogram 6. L DEBURRING AND TOOLING MACHINE OPERATOR angiogram 7. Mynx closure Past Medical [...] with 24/7 assistance and maximal services) Pager: [phone] NICHOLAS MORA, JESSIE 08/12/2017 Physical Therapy Rehabilitation [...] sit/sit to supine -- Bed Mobility Goal, Shackelford Level independent -- Bed Mobility Goal, Outcome Achieved -- goal ongoing Goal: Gait Training Goal Stand Alone Therapy Goal Outcome: Ongoing (Interventions Implemented as Appropriate) 08/11/17 1310 08/12/17 1510 Gait Training Goal Gait Training Goal, Date Established 08/11/17 -- Gait Training Goal, Time to Achieve 5 - 7 days -- Gait Training Goal, Shackelford Level conditional independence -- Gait Training Goal, [...] days -- Transfer Training Goal, Activity Type qrb-ld-nuqdg/hpgto-xk-lxd -- Transfer Train Goal, Shackelford Level conditional independence -- Transfer Training Goal, [...] Smith MD - 08/11/2017 2:52 PM EST [facility] Operative Note Patient Name: Gregory Hoang : [id number] MR#: [id number] Case Date: 08/11/2017 Surgeon: Surgeon(s) and Role: [...] 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 Completion RLE angiogram 6. L DEBURRING AND TOOLING MACHINE OPERATOR angiogram 7. Mynx closure He is [...] Anticipated Discharge Disposition: inpatient rehabilitation facility Pager: [phone] LAWRENCE GONZALEZ, PT 08/11/2017 Physical Therapy Rehabilitation [...] to sit/sit to supine Bed Mobility Goal, Shackelford Level independent Goal: Gait Training Goal Stand Alone Therapy Goal Outcome: Ongoing (Interventions Implemented as Appropriate) 08/11/17 1310 Gait Training Goal Gait Training Goal, Date Established 08/11/17 Gait Training Goal, Time to Achieve 5 - 7 days Gait Training Goal, Shackelford Level conditional independence Gait Training Goal, Assist [...] 7 days Transfer Training Goal, Activity Type hos-yi-frsrd/cpiug-jx-fdz Transfer Train Goal, Shackelford Level conditional independence Plan of Care - [...] call cabello within reach, Hourly rounding by RN/TOBACCO SIZER. Bed alarm / Chair alarm. ? Patient-specific [...] 04/05/2013 Hospitalizations Within the Past 30 Days: [facility] 07/20/2017 Anticipated Length Of Stay (If known): Expected Length of Hospitalization: 5-7 days2-3 days Current Decision-Making Capacity: Alert and oriented x 4 Advance Care Planning: on file Kisha Hoang [facility] [phone] Current Coping/Education/Information Needs: pt and spouse state [...] Health/Prescription Coverage: Primary Insurance: MEDICARE Secondary Insurance: [employer] [place] Prescription Coverage: See above Preferred Pharmacy: [id number] Other: N/A Primary Care Provider: Lovely Vicente MD [phone] Patient/Caregiver Goals of Treatment: Patient plans to [...] of care planning. Kaitlin Saha RN Pager: [phone] Plan of Care - Melba Jaramillo RN [...] Overview Goal: Plan of Care Review 08/08/17 4344 Coping/Psychosocial Plan Of Care Reviewed With patient [...] -- 0 Score -- -- 75 OTHER Mrak Fall Risk -- -- High Restraint Interventions [...] call cabello within reach, Hourly rounding by RN/TOBACCO SIZER. Bed alarm / Chair alarm. Patient-specific fall [...] at bedside and MD TEAM Carrying pager [phone] contacted (via Radio page) and notified of [...] Nobles MD [facility] CARDIOLOGY [place], [place] [address] (Wo rk) 06/10/2022 Office Visit Dermatology Laura Scherer MD [facility] DR TEJA GR-DERMAT OLOGY [place], [place] [address] (Wo rk) documented as [...] TYPE AND SCREEN Routine 08/09/2017 1:10 AM ([facility]/SHANDA) EST BASIC METABOLIC PANEL Routine [...] Signature POC Glucose 160 65 - 199 [facility] mg/dL [facility] Comment: Supplemental ranges: <140 mg/dL before meals <180 mg/dL all other times of the day Specimen Anatomical Collection Method Collection Time Receive d Time (Source) Location / / Volume Laterality Blood specimen 08/16/2017 7:28 AM 018 7:28 (specimen) EST AM EST Yonathan Smith MD POINT OF CARE TEST ORDERABLE S Performing Organization Address City/State/[place] [address] (ABNORMAL) Differential, Automated (08/16/2017 5:08 AM EST) Patholo gist Method Time Signature Neutrophils % 73.9 % [facility] Neutr Abs (ANC) 5.37 1.70 - [facility] 6.10 [facility] x10(3)/[facility] LABORATORY Lymphocytes % 10.1 % [facility] Lymphocytes Abs 0.7 (L) 0.9 - 3.2 [facility] x10(3)/[facility] LABORATORY Monocytes % 10.1 % [facility] Monocyte Abs 0.7 0.3 - 0.9 [facility] x10(3)/[facility] LABORATORY Eosinophils % 5.1 % [facility] Eosinophils Abs 0.4 0.0 - 0.4 [facility] x10(3)/[facility] LABORATORY Basophils % 0.4 % [facility] Basophils Abs 0.0 0.0 - 0.1 [facility] x10(3)/[facility] LABORATORY Immature Gran [...] Melisa Gran Abs 0.03 0.00 - 0.04 x10(3)/[facility] LABORATORY Specimen Anatomical Collection Method Collection Time Receive d Time (Source) Location / / Volume Laterality Blood specimen 08/16/2017 5:08 AM 018 5:20 (specimen) EST AM EST Resulting Agency Comment Spec In Lab Yonathan Smith MD HEMATOLOGY ORDERABLES Performing Organization Address City/State/[place] [address] (ABNORMAL) Hemogram (08/16/2017 5:08 AM EST) Analysis Performed At Patho logist Time Signature WBC 7.3 4.0 - 9.5 [facility] x10(3)/[facility] LABORATORY RBC 3.36 (L) 4.58 - [facility] 5.54 [facility] x10(6)/[facility] LABORATORY Hemoglobin 9.7 (L) 13.7 - [facility] 16.[facility] gm/dL [facility] Hematocrit 30.3 (L) 40.5 - [facility] 48.5 % [facility] MCV 90.2 82.9 - [facility] 93.1 [facility] LABORATORY MCH 28.9 27.5 - BARBARA RYAN 32.1 pg [facility] MCHC 32.0 32.0 - [facility] 35.7 gm/dL [facility] Platelets 282 145 - 357 [facility] x10(3)/[facility] LABORATORY RDWSD 53.9 (H) 36.0 - [facility] 45.0 [facility] LABORATORY RDWCV 16.5 (H) 11.4 - [facility] 13.8 % [facility] LAB[facility]ORY MPV 9.0 7.6 - 12.9 [facility] LABORATORY nRBC % Auto 0.0 % [facility] nRBC Abs Auto 0.000 0.000 - [facility] 0.000 [facility] x10(3)/[facility] LABORATORY Specimen Anatomical Collection Method Collection Time Receive d Time (Source) Location / / Volume Laterality Blood specimen 08/16/2017 5:08 AM 018 5:20 (specimen) EST AM EST Resulting Agency Comment Spec In Lab Yonathan Smith MD HEMATOLOGY ORDERABLES Performing Organization Address City/State/[place] [address] (ABNORMAL) Basic Metabolic Panel (non-fasting) (08/16/2017 5:08 AM EST) athologist Signature Glucose Lvl 141 65 - 199 [facility] mg/dL [facility] Comment: Diabetes: >=200 mg/dL plus symp toms BUN 29 (H) 10 - 20 mg/dL [facility] Creatinine 1.25 0.80 - 1.50 mg/dL [facility] [...] CENTER LABORATORY Estimated GFR 57 (L) >=60 [facility] Comment: The reported eGFR should be multiplied b y 1.2 for patients. The MDRD is not an appropriate measure o f renal function for patients with body mass extremes or in patients with acute kidney failure. http://TrueAccord/DHnkdep http://TrueAccord/DHnkf Specimen Anatomical Collection Method Collection Time Receive d Time (Source) Location / / Volume Laterality Blood specimen 08/16/2017 5:08 AM 018 5:20 (specimen) EST AM EST Resulting Agency Comment Spec In Lab Yonathan Smith MD CHEMISTRY ORDERABLES Performing Organization Address City/State/[place] [address] (ABNORMAL) Prothrombin Time (08/16/2017 5:08 AM EST) athologist Signature PT 25.2 (H) 11.8 - 14.0 [facility] LABORATORY INR 2.3 (H) 0.9 - [...] Smith MD HEMATOLOGY ORDERABLES Performing Organization Address City/[facility]/ZIP Code Phon e Number [address] POCT Glucose (08/16/2017 4:09 AM EST) athologist Signature POC Glucose 147 65 - 199 [facility] mg/dL [facility] Comment: Supplemental ranges: <140 [...] [facility]/ZIP Code Phon e Number [place], [place] [address] POCT Glucose (08/15/2017 11:56 PM EST) athologist Signature POC Glucose 176 65 - 199 BARBARA RYAN mg/dL [facility] LABORATORY Comment: Supplemental ranges: <140 mg/dL before meals <180 mg/dL all other times of the day Specimen Anatomical Collection Method Collection Time Receive d Time (Source) Location / / Volume Laterality Blood specimen 08/15/2017 11:56 8 (specimen) PM EST 11:56 PM EST Yonathan Smith MD POINT OF CARE TEST ORDERABLE S Performing Organization Address City/State/[place] [address] POCT Glucose (08/15/2017 8:05 PM EST) athologist Signature POC Glucose 136 65 - 199 [place] RYAN mg/dL [facility] LABORATORY Comment: Supplemental ranges: <140 mg/dL before meals <180 mg/dL all other times of the day Specimen Anatomical Collection Method Collection Time Receive d Time (Source) Location / / Volume Laterality Blood specimen 08/15/2017 8:05 PM 018 8:05 (specimen) EST PM EST Yonathan Smith MD POINT OF CARE TEST ORDERABLE S Performing Organization Address City/State/ZIP Code Phon e Number [address] (ABNORMAL) POCT Glucose (08/15/2017 4:50 PM EST) athologist Signature POC Glucose 232 (H) 65 - 199 BARBARA ZHAORYAN mg/dL [facility] LABORATORY Comment: Supplemental ranges: <140 [...] [facility]/[place] [address] POCT Glucose (08/15/2017 12:04 PM EST) athologist Signature POC Glucose 135 65 - 199 BARBARA ZHAORYAN mg/dL [facility] LABORATORY Comment: Supplemental ranges: <140 [...] [facility]/[place] [address] POCT Glucose (08/15/2017 7:36 AM EST) athologist Signature POC Glucose 124 65 - 199 BARBARA RYAN mg/dL [facility] LABORATORY Comment: Supplemental ranges: <140 mg/dL before meals <180 mg/dL all other times of the day Specimen Anatomical Collection Method Collection Time Receive d Time (Source) Location / / Volume Laterality Blood specimen 08/15/2017 7:36 AM 018 7:36 (specimen) EST AM EST Yonathan Smith MD POINT OF CARE TEST ORDERABLE S Performing Organization Address City/State/[place] [address] (ABNORMAL) Differential, Automated (08/15/2017 6:22 AM EST) [facility] Method Time Signature Neutrophils % 76.1 % [facility] LABORATORY Neutr Abs (ANC) 6.62 (H) 1.70 - [facility] 6.10 [facility] x10(3)/[facility] L LABORATORY Lymphocytes % 9.3 % [facility] LABORATORY Lymphocytes Abs 0.8 (L) 0.9 - 3.2 [facility] x10(3)/[facility] LABORATORY Monocytes % 9.4 % [facility] LABORATORY Monocyte Abs 0.8 0.3 - 0.9 [facility] x10(3)/[facility] LABORATORY Eosinophils % 4.0 % [facility] LABORATORY Eosinophils Abs 0.4 0.0 - 0.4 [facility] x10(3)/[facility] LABORATORY Basophils % 0.6 % [facility] LABORATORY Basophils Abs 0.0 0.0 - 0.1 [facility] x10(3)/[facility] LABORATORY Immature Gran % 0.60 [...] Organization Address City/State/[place] [address] (ABNORMAL) Hemogram (08/15/2017 6:22 AM EST) Analysis Performed At Patho logist Time Signature WBC 8.7 4.0 - 9.5 BARBARA RYAN x10(3)/[facility] LABORATORY RBC 3.21 (L) 4.58 - BARBARA RYAN 5.54 [facility] x10(6)/[facility] LABORATORY Hemoglobin 9.1 (L) 13.7 - [facility] 16.5 gm/dL [facility] LABORATORY Hematocrit 29.0 (L) 40.5 - [facility] 48.5 % [facility] LABORATORY MCV 90.3 82.9 - [facility] LABORATORY MCH 28.3 27.5 - [place] RYAN 32.1 pg [facility] LABORATORY MCHC 31.4 (L) 32.0 - [place] RYAN 35.7 gm/dL [facility] LABORATORY Platelets 254 145 - 357 [facility] x10(3)/[facility] LABORATORY RDWSD 53.9 (H) 36.0 - [place] RYAN 45.0 [facility] LABORATORY RDWCV 16.3 (H) 11.4 - [facility] RYAN 13.8 % [facility] LABORATORY MPV 8.8 7.6 - 12.9 [facility] LABORATORY nRBC % Auto 0.0 % [facility] LABORATORY nRBC Abs Auto 0.000 0.000 - [place] RYAN 0.000 [facility] x10(3)/[facility] LABORATORY Specimen Anatomical Collection Method Collection Time Receive d Time (Source) Location / / Volume Laterality Blood specimen 08/15/2017 6:22 AM 018 6:33 (specimen) EST AM EST Resulting Agency Comment Spec In Lab Yonathan Smith MD HEMATOLOGY ORDERABLES Performing Organization Address City/State/[place] [address] (ABNORMAL) Basic Metabolic Panel (non-fasting) (08/15/2017 6:22 AM EST) P athologist Signature Glucose Lvl 118 65 - 199 [facility] mg/dL [facility] LABORATORY Comment: Diabetes: >=200 mg/dL plus symp toms BUN 27 (H) 10 - 20 mg/dL [facility] LABORATORY Creatinine 1.12 0.80 - 1.50 mg/dL [facility] [...] or in patients with acute kidney failure. [email or web address] [email or web address] Specimen Anatomical Collection Method Collection Time Receive d Time (Source) Location / / Volume Laterality Blood specimen 08/15/2017 6:22 AM 018 6:33 (specimen) EST AM EST Resulting Agency Comment Spec In Lab Yonathan Smith MD CHEMISTRY ORDERABLES Performing Organization Address City/State/[place] [address] (ABNORMAL) Prothrombin Time (08/15/2017 6:22 AM EST) P athologist Signature PT 21.9 (H) 11.8 - 14.0 [facility] LABORATORY INR 1.9 (H) 0.9 - [...] Address City/State/ZIP Code Phon e Number [address] POCT Glucose (08/15/2017 4:33 AM EST) athologist Signature POC Glucose 164 65 - 199 [facility]/dL [facility] LABORATORY Comment: Supplemental ranges: <140 mg/dL before meals <180 mg/dL all other times of the day Specimen Anatomical Collection Method Collection Time Receive d Time (Source) Location / / Volume Laterality Blood specimen 08/15/2017 4:33 AM 018 4:33 (specimen) EST AM EST Yonathan Smith MD POINT OF CARE TEST ORDERABLE S Performing Organization Address City/State/[place] [address] POCT Glucose (08/15/2017 12:12 AM EST) athologist Signature POC Glucose 89 65 - 199 [facility] RYAN mg/dL [facility] LABORATORY Comment: Supplemental ranges: <140 mg/dL before meals <180 mg/dL all other times of the day Specimen Anatomical Collection Method Collection Time Receive d Time (Source) Location / / Volume Laterality Blood specimen 08/15/2017 12:12 8 (specimen) AM EST 12:12 AM EST Yonathan Smith MD POINT OF CARE TEST ORDERABLE S Performing Organization Address City/State/[place] [address] (ABNORMAL) POCT Glucose (08/14/2017 8:07 PM EST) athologist Signature POC Glucose 204 (H) 65 - 199 BARBARA ZHAORYAN mg/dL [facility] LABORATORY Comment: Supplemental ranges: <140 mg/dL before meals <180 mg/dL all other times of the day Specimen Anatomical Collection Method Collection Time Receive d Time (Source) Location / / Volume Laterality Blood specimen 08/14/2017 8:07 PM 018 8:07 (specimen) EST PM EST Yonathan Smith MD POINT OF CARE TEST ORDERABLE S Performing Organization Address City/State/ZIP Code Phon e Number [address] POCT Glucose (08/14/2017 5:11 PM EST) athologist Signature POC Glucose 174 65 - 199 [facility] mg/dL [facility] LABORATORY Comment: Supplemental ranges: <140 mg/dL before meals <180 mg/dL all other times of the day Specimen Anatomical Collection Method Collection Time Receive d Time (Source) Location / / Volume Laterality Blood specimen 08/14/2017 5:11 PM 018 5:11 (specimen) EST PM EST Yonathan Smith MD POINT OF CARE TEST ORDERABLE S Performing Organization Address City/State/ZIP Code Phon e Number [address] POCT Glucose (08/14/2017 12:10 PM EST) athologist Signature POC Glucose 141 65 - 199 [facility] RYAN mg/dL [facility] LABORATORY Comment: Supplemental ranges: <140 mg/dL before meals <180 mg/dL all other times of the day Specimen Anatomical Collection Method Collection Time Receive d Time (Source) Location / / Volume Laterality Blood specimen 08/14/2017 12:10 8 (specimen) PM EST 12:10 PM EST Yonathan Smith MD POINT OF CARE TEST ORDERABLE S Performing Organization Address City/State/ZIP Code Phon e Number [address] POCT Glucose (08/14/2017 8:07 AM EST) P athologist Signature POC Glucose 158 65 - 199 [facility] mg/dL [facility] LABORATORY Comment: Supplemental ranges: <140 mg/dL before meals <180 mg/dL all other times of the day Specimen Anatomical Collection Method Collection Time Receive d Time (Source) Location / / Volume Laterality Blood specimen 08/14/2017 8:07 AM 018 8:07 (specimen) EST AM EST Yonathan Smith MD POINT OF CARE TEST ORDERABLE S Performing Organization Address City/State/[place] [address] (ABNORMAL) Differential, Automated (08/14/2017 4:52 AM EST) Patholo gist Method Time Signature Neutrophils % 78.6 % [facility] LABORATORY Neutr Abs (ANC) 7.70 (H) 1.70 - [facility] 6.10 [facility] x10(3)/[facility] L LABORATORY Lymphocytes % 7.8 % [facility] LABORATORY Lymphocytes Abs 0.8 (L) 0.9 - 3.2 [facility] x10(3)/[facility] LABORATORY Monocytes % 8.8 % [facility] LABORATORY Monocyte Abs 0.9 0.3 - 0.9 [facility] x10(3)/[facility] LABORATORY Eosinophils % 4.0 % [facility] LABORATORY Eosinophils Abs 0.4 0.0 - 0.4 [facility] x10(3)/[facility] LABORATORY Basophils % 0.5 % [facility] LABORATORY Basophils Abs 0.0 0.0 - 0.1 [facility] x10(3)/[facility] LABORATORY Immature Gran % 0.30 % [place] [...] Melisa Gran Abs 0.03 0.00 - 0.04 x10(3)/[facility] LABORATORY Specimen Anatomical Collection Method Collection Time Receive d Time (Source) Location / / Volume Laterality Blood specimen 08/14/2017 4:52 AM 018 5:08 (specimen) EST AM EST Resulting Agency Comment Spec In Lab Yonathan Smith MD HEMATOLOGY ORDERABLES Performing Organization Address City/State/[place] [address] (ABNORMAL) Hemogram (08/14/2017 4:52 AM EST) Analysis Performed At Patho logist Time Signature WBC 9.8 (H) 4.0 - 9.5 [facility] x10(3)/[facility] LABORATORY RBC 3.32 (L) 4.58 - [facility] 5.54 [facility] x10(6)/[facility] LABORATORY Hemoglobin 9.5 (L) 13.7 - [facility] 16.[facility] gm/dL [facility] LABORATORY Hematocrit 30.3 (L) 40.5 - [facility] 48.5 % [facility] LABORATORY MCV 91.3 82.9 - [facility] 93.1 [facility] LABORATORY MCH 28.6 27.5 - [facility] 32.1 pg [facility] LABORATORY MCHC 31.4 (L) 32.0 - [facility] 35.[facility] gm/dL [facility] LABORATORY Platelets 263 145 - 357 [facility] x10(3)/[facility] LABORATORY RDWSD 54.8 (H) 36.0 - [facility] 45.0 [facility] LABORATORY RDWCV 16.5 (H) 11.4 - [facility] 13.8 % [facility] LABORATORY MPV 9.1 7.6 - 12.9 [facility] LABORATORY nRBC % Auto 0.0 % [facility] LABORATORY nRBC Abs Auto 0.000 0.000 - [facility] 0.000 [facility] x10(3)/[facility] LABORATORY Specimen Anatomical Collection Method Collection Time Receive d Time (Source) Location / / Volume Laterality Blood specimen 08/14/2017 4:52 AM 018 5:08 (specimen) EST AM EST Resulting Agency Comment Spec In Lab Yonathan Smith MD HEMATOLOGY ORDERABLES Performing Organization Address City/[facility]/[place] [address] (ABNORMAL) Prothrombin Time (08/14/2017 4:52 AM EST) P athologist Signature PT 18.8 (H) 11.8 - 14.0 [facility] [...] Organization Address City/State/[place] [address] (ABNORMAL) Basic Metabolic Panel (non-fasting) (08/14/2017 4:52 AM EST) P athologist Signature Glucose Lvl 135 65 - 199 [facility] mg/dL [facility] LABORATORY Comment: Diabetes: >=200 mg/dL plus symp toms BUN 25 (H) 10 - 20 mg/dL [facility] LABORATORY Creatinine 1.36 0.80 - 1.50 mg/dL [facility] [...] CENTER LABORATORY Estimated GFR 52 (L) >=60 [facility] LABORATORY Comment: The reported eGFR should be multiplied b y 1.2 for patients. The MDRD is not an appropriate measure o f renal function for patients with body mass extremes or in patients with acute kidney failure. http://[email or web address] [email or web address] Specimen Anatomical Collection Method Collection Time Receive d Time (Source) Location / / Volume Laterality Blood specimen 08/14/2017 4:52 AM 018 5:08 (specimen) EST AM EST Resulting Agency Comment Spec In Lab Yonathan Smith MD CHEMISTRY ORDERABLES Performing Organization Address City/[facility]/ZIP Code Phon e Number [address] POCT Glucose (08/14/2017 3:56 AM EST) athologist Signature POC Glucose 135 65 - 199 [facility]/dL [facility] LABORATORY Comment: Supplemental ranges: <140 [...] [facility]/ZIP Code Phon e Number [address] POCT Glucose (08/13/2017 11:13 PM EST) athologist Signature POC Glucose 118 65 - 199 [facility]/dL [facility] LABORATORY Comment: Supplemental ranges: <140 mg/dL before meals <180 mg/dL all other times of the day Specimen Anatomical Collection Method Collection Time Receive d Time (Source) Location / / Volume Laterality Blood specimen 08/13/2017 11:13 8 (specimen) PM EST 11:13 PM EST Yonathan Smith MD POINT OF CARE TEST ORDERABLE S Performing Organization Address City/State/[place] [address] (ABNORMAL) POCT Glucose (08/13/2017 8:08 PM EST) athologist Signature POC Glucose 204 (H) 65 - 199 [place] RYAN mg/dL [facility] LABORATORY Comment: Supplemental ranges: <140 [...] [facility]/[place] [address] POCT Glucose (08/13/2017 4:02 PM EST) athologist Signature POC Glucose 145 65 - 199 BARBARA ZHAORAYN mg/dL [facility] LABORATORY Comment: Supplemental ranges: <140 mg/dL before meals <180 mg/dL all other times of the day Specimen Anatomical Collection Method Collection Time Receive d Time (Source) Location / / Volume Laterality Blood specimen 08/13/2017 4:02 PM 018 4:02 (specimen) EST PM EST Yonathan Smith MD POINT OF CARE TEST ORDERABLE S Performing Organization Address City/State/[place] [address] POCT Glucose (08/13/2017 11:31 AM EST) athologist Signature POC Glucose 179 65 - 199 [place]BAR[place] RYAN mg/dL [facility] LABORATORY Comment: Supplemental ranges: <140 [...] [facility] [address] (ABNORMAL) POCT Glucose (08/13/2017 10:16 AM EST) P athologist Signature POC Glucose 211 (H) 65 - 199 [facility]/dL [facility] LABORATORY Comment: Supplemental ranges: <140 mg/dL before meals <180 mg/dL all other times of the day Specimen Anatomical Collection Method Collection Time Receive d Time (Source) Location / / Volume Laterality Blood specimen 08/13/2017 10:16 8 (specimen) AM EST 10:16 AM EST Yonathan Smith MD POINT OF CARE TEST ORDERABLE S Performing Organization Address City/State/[place] [address] JULIAN, legs, multiple levels (08/13/2017 7:42 AM EST) Component Value Ref Test Analysis Performed At Patholo gist Range Method Time Signature VB Text Department: Vascular Surgery Lab VASCUBASE Report Patient: [id number] (GREGORY HOANG) CPT: 95699 ICD10: I99.8 Referring Physician: YONATHAN SMITH ?? Indications: s/p R 1,2,3 toe amps with red left foot, need n ew baseline Diabetes mellitus: yes ICD10 Diagnosis Code: I99.8 Findings: Right ?Pressure (mm Hg) ?? JULIAN ??Waveform ?TBI ?? Brachial Artery ?138 ? Dorsalis Pedis (Ankle) Arter y ?132 ? 0.94 ??Hoke- Biphasic ? Posterior Tibial (Ankle) Art anila ??154 ? 1.10 ??Hoke-Biphasic ? Fourth Toe ? 67 ? 0.48 [...] POC Glucose 156 65 - 199 [facility] mg/dL [facility] LABORATORY Comment: Supplemental ranges: <140 mg/dL before meals <180 mg/dL all other times of the day Specimen Anatomical Collection Method Collection Time Receive d Time (Source) Location / / Volume Laterality Blood specimen 08/13/2017 7:33 AM 018 7:33 (specimen) EST AM EST Yonathan Smith MD POINT OF CARE TEST ORDERABLE S Performing Organization Address City/State/[place] [address] (ABNORMAL) Differential, Automated (08/13/2017 5:33 AM EST) Patholo gist Method Time Signature Neutrophils % 77.8 % [facility] LABORATORY Neutr Abs (ANC) 7.83 (H) 1.70 - [facility] 6.10 [facility] x10(3)/[facility] L LABORATORY Lymphocytes % 8.4 % [facility] LABORATORY Lymphocytes Abs 0.8 (L) 0.9 - 3.2 [facility] x10(3)/[facility] LABORATORY Monocytes % 8.3 % [facility] LABORATORY Monocyte Abs 0.8 0.3 - 0.9 [facility] x10(3)/[facility] LABORATORY Eosinophils % 4.6 % [facility] LABORATORY Eosinophils Abs 0.5 (H) 0.0 - 0.4 [facility] x10(3)/[facility] LABORATORY Basophils % 0.5 % [facility] LABORATORY Basophils Abs 0.0 0.0 - 0.1 [facility] x10(3)/[facility] LABORATORY Immature Gran % 0.40 % [place] [...] Melisa Gran Abs 0.04 0.00 - 0.04 x10(3)/[facility] LABORATORY Specimen Anatomical Collection Method Collection Time Receive d Time (Source) Location / / Volume Laterality Blood specimen 08/13/2017 5:33 AM 018 6:04 (specimen) EST AM EST Resulting Agency Comment Spec In Lab Yonathan Smith MD HEMATOLOGY ORDERABLES Performing Organization Address City/State/[place] [address] (ABNORMAL) Hemogram (08/13/2017 5:33 AM EST) Analysis Performed At Patho logist Time Signature WBC 10.1 (H) 4.0 - 9.5 [facility] x10(3)/[facility] LABORATORY RBC 3.21 (L) 4.58 - [facility] 5.54 [facility] x10(6)/[facility] LABORATORY Hemoglobin 9.2 (L) 13.7 - [facility] 16.5 gm/dL [facility] LABORATORY Hematocrit 29.6 (L) 40.5 - BARBARA DAVIS 48.5 % [facility] LABORATORY MCV 92.2 82.9 - [facility].1 [facility] LABORATORY MCH 28.7 27.5 - [facility] 32.1 pg [facility] LABORATORY MCHC 31.1 (L) 32.0 - [facility] RYAN 35.7 gm/dL [facility] LABORATORY Platelets 263 145 - 357 [facility] x10(3)/[facility] LABORATORY RDWSD 54.8 (H) 36.0 - [facility] RYAN 45.0 [facility] LABORATORY RDWCV 16.4 (H) 11.4 - [facility] RYAN 13.8 % [facility] LABORATORY MPV 9.2 7.6 - 12.9 [facility] LABORATORY nRBC % Auto 0.0 % [facility] LABORATORY nRBC Abs Auto 0.000 0.000 - [facility] RYAN 0.000 [facility] x10(3)/[facility] LABORATORY Specimen Anatomical Collection Method Collection Time Receive d Time (Source) Location / / Volume Laterality Blood specimen 08/13/2017 5:33 AM 018 6:04 (specimen) EST AM EST Resulting Agency Comment Spec In Lab Yonathan Smith MD HEMATOLOGY ORDERABLES Performing Organization Address City/State/[place] [address] (ABNORMAL) Prothrombin Time (08/13/2017 5:33 AM EST) P athologist Signature PT 17.3 (H) 11.8 - 14.0 [facility] LABORATORY INR 1.4 (H) 0.9 - [...] Organization Address City/State/[place] [address] (ABNORMAL) Basic Metabolic Panel (non-fasting) (08/13/2017 5:33 AM EST) athologist Signature Glucose Lvl 126 65 - 199 [facility] mg/dL [facility] LABORATORY Comment: Diabetes: >=200 mg/dL plus symp toms BUN 18 10 - 20 mg/dL [facility] LABORATORY Creatinine 1.16 0.80 - 1.50 mg/dL [facility] [...] or in patients with acute kidney failure. [email or web address] [email or web address] Specimen Anatomical Collection Method Collection Time Receive d Time (Source) Location / / Volume Laterality Blood specimen 08/13/2017 5:33 AM 018 6:04 (specimen) EST AM EST Resulting Agency Comment Spec In Lab Yonathan Smith MD CHEMISTRY ORDERABLES Performing Organization Address City/[facility]/ZIP Code Phon e Number [address] POCT Glucose (08/13/2017 4:29 AM EST) athologist Signature POC Glucose 111 65 - 199 [facility] RYAN mg/dL [facility] LABORATORY Comment: Supplemental ranges: <140 mg/dL before meals <180 mg/dL all other times of the day Specimen Anatomical Collection Method Collection Time Receive d Time (Source) Location / / Volume Laterality Blood specimen 08/13/2017 4:29 AM 018 4:29 (specimen) EST AM EST Yonahtan Smith MD POINT OF CARE TEST ORDERABLE S Performing Organization Address City/[facility]/[place] [address] POCT Glucose (08/12/2017 11:28 PM EST) athologist Signature POC Glucose 164 65 - 199 [facility]BAR[facility] RYAN mg/dL [facility] LABORATORY Comment: Supplemental ranges: <140 [...] [facility]/[place] [address] (ABNORMAL) POCT Glucose (08/12/2017 7:40 PM EST) athologist Signature POC Glucose 209 (H) 65 - 199 BARBARA RYAN mg/dL [facility] LABORATORY Comment: Supplemental ranges: <140 [...] [facility]/ZIP Code Phon e Number [address] POCT Glucose (08/12/2017 4:24 PM EST) athologist Signature POC Glucose 161 65 - 199 BARBARA ZHAORYAN mg/dL [facility] LABORATORY Comment: Supplemental ranges: <140 [...] [facility]/ZIP Code Phon e Number [address] POCT Glucose (08/12/2017 12:00 PM EST) athologist Signature POC Glucose 167 65 - 199 BARBARA RYAN mg/dL [facility] LABORATORY Comment: Supplemental ranges: <140 [...] [facility]/ZIP Code Phon e Number [address] POCT Glucose (08/12/2017 7:25 AM EST) athologist Signature POC Glucose 152 65 - 199 BARBARA ZHAORYAN mg/dL [facility] Comment: Supplemental ranges: <140 mg/dL before meals <180 mg/dL all other times of the day Specimen Anatomical Collection Method Collection Time Receive d Time (Source) Location / / Volume Laterality Blood specimen 08/12/2017 7:25 AM 018 7:25 (specimen) EST AM EST Yonathan Smith MD POINT OF CARE TEST ORDERABLE S Performing Organization Address City/State/[place] [address] (ABNORMAL) Differential, Automated (08/12/2017 6:29 AM EST) [facility] Method Time Signature Neutrophils % 78.7 % [facility] Neutr Abs (ANC) 7.94 (H) 1.70 - [facility] 6.10 [facility] x10(3)/[facility] LABORATORY Lymphocytes % 8.8 % [facility] Lymphocytes Abs 0.9 0.9 - 3.2 [facility] x10(3)/[facility] LABORATORY Monocytes % 7.8 % [facility] Monocyte Abs 0.8 0.3 - 0.9 [facility] x10(3)/[facility] LABORATORY Eosinophils % 3.9 % [facility] Eosinophils Abs 0.4 0.0 - 0.4 [facility] x10(3)/[facility] LABORATORY Basophils % 0.3 % [facility] Basophils Abs 0.0 0.0 - 0.1 [facility] x10(3)/[facility] LABORATORY Immature Gran % 0.50 % [place] [...] Smith MD HEMATOLOGY ORDERABLES Performing Organization Address City/[facility]/[place] [address] (ABNORMAL) Hemogram (08/12/2017 6:29 AM EST) Analysis Performed At Patho logist Time Signature WBC 10.1 (H) 4.0 - 9.5 [facility] x10(3)/[facility] LABORATORY RBC 3.02 (L) 4.58 - [facility] x10(6)/[facility] LABORATORY Hemoglobin 8.7 (L) 13.7 - [facility] 16.[facility] gm/dL [facility] Hematocrit 28.1 (L) 40.5 - [facility] 48.5 % [facility] MCV 93.0 82.9 - [facility]1 [facility] LABORATORY MCH 28.8 27.5 - [facility] 32.1 pg [facility] MCHC 31.0 (L) 32.0 - [facility] 35.7 gm/dL [facility] Platelets 223 145 - 357 [facility] x10(3)/[facility] LABORATORY RDWSD 56.1 (H) 36.0 - [facility] 45[facility]0 [facility] LABORATORY RDWCV 16.4 (H) 11.4 - [facility] 13.8 % [facility] MPV 9.0 7.6 - 12.9 [facility] LABORATORY nRBC % Auto 0.0 % [facility] nRBC Abs Auto 0.000 0.000 - [facility] 0.000 [facility] x10(3)/[facility] LABORATORY Specimen Anatomical Collection Method Collection Time Receive d Time (Source) Location / / Volume Laterality Blood specimen 08/12/2017 6:29 AM 018 6:38 (specimen) EST AM EST Resulting Agency Comment Spec In Lab Yonathan Smith MD HEMATOLOGY ORDERABLES Performing Organization Address City/State/[place] [address] (ABNORMAL) Prothrombin Time (08/12/2017 6:29 AM EST) P athologist Signature PT 16.1 (H) 11.8 - 14.0 [facility] [...] Organization Address City/State/ZIP Code Phon e Number [place] [id number]OSP[address] LAB[address]ORY [address] (ABNORMAL) Basic Metabolic Panel (non-fasting) (08/12/2017 6:29 AM EST) athologist Signature Glucose Lvl 151 65 - 199 [facility] mg/dL [facility] Comment: Diabetes: >=200 mg/dL plus symp toms BUN 18 10 - 20 mg/dL [facility] Creatinine 1.11 0.80 - 1.50 mg/dL [facility] [...] or in patients with acute kidney failure. [email or web address] Specimen Anatomical Collection Method Collection Time Receive d Time (Source) Location / / Volume Laterality Blood specimen 08/12/2017 6:29 AM 018 6:38 (specimen) EST AM EST Resulting Agency Comment Spec In Lab Yonathan Smith MD CHEMISTRY ORDERABLES Performing Organization Address City/[facility]/ZIP [facility] Phon e Number [address] POCT Glucose (08/12/2017 4:08 AM EST) athologist Signature POC Glucose 181 65 - 199 [facility]dL [facility] Comment: Supplemental ranges: <140 [...] [facility]/[place] [address] (ABNORMAL) POCT Glucose (08/12/2017 12:17 AM EST) athologist Signature POC Glucose 221 (H) 65 - 199 [facility]/dL [facility] Comment: Supplemental ranges: <140 [...] [facility]/[place] [address] (ABNORMAL) POCT Glucose (08/11/2017 8:52 PM EST) athologist Signature POC Glucose 221 (H) 65 - 199 [facility] mg/dL [facility] Comment: Supplemental ranges: <140 mg/dL before meals <180 mg/dL all other times of the day Specimen Anatomical Collection Method Collection Time Receive d Time (Source) Location / / Volume Laterality Blood specimen 08/11/2017 8:52 PM 018 8:52 (specimen) EST PM EST Yonathan Smith MD POINT OF CARE TEST ORDERABLE S Performing Organization Address City/State/[place] [address] POCT Glucose (08/11/2017 5:59 PM EST) athologist Signature POC Glucose 169 65 - 199 [facility] mg/dL [facility] Comment: Supplemental ranges: <140 [...] [facility]/[place] [address] (ABNORMAL) POCT Glucose (08/11/2017 4:08 PM EST) athologist Signature POC Glucose 240 (H) 65 - 199 [facility] mg/dL [facility] Comment: Supplemental ranges: <140 mg/dL before meals <180 mg/dL all other times of the day Specimen Anatomical Collection Method Collection Time Receive d Time (Source) Location / / Volume Laterality Blood specimen 08/11/2017 4:08 PM 018 4:08 (specimen) EST PM EST Yonathan Smith MD POINT OF CARE TEST ORDERABLE S Performing Organization Address City/State/[place] [address] POCT Glucose (08/11/2017 12:04 PM EST) athologist Signature POC Glucose 182 65 - 199 [facility] mg/dL [facility] Comment: Supplemental ranges: <140 mg/dL before meals <180 mg/dL all other times of the day Specimen Anatomical Collection Method Collection Time Receive d Time (Source) Location / / Volume Laterality Blood specimen 08/11/2017 12:04 8 (specimen) PM EST 12:04 PM EST Yonathan Smith MD POINT OF CARE TEST ORDERABLE S Performing Organization Address City/State/ZIP Code Phon e Number [address] POCT Glucose (08/11/2017 7:31 AM EST) athologist [facility] POC Glucose 156 65 - 199 [facility] mg/dL [facility] Comment: Supplemental ranges: <140 mg/dL before meals <180 mg/dL all other times of the day Specimen Anatomical Collection Method Collection Time Receive d Time (Source) Location / / Volume Laterality Blood specimen 08/11/2017 7:31 AM 018 7:31 (specimen) EST AM EST Yonathan Smith MD POINT OF CARE TEST ORDERABLE S Performing Organization Address City/State/ZIP Code Phon e Number [address] (ABNORMAL) Differential, Automated (08/11/2017 6:16 AM EST) [facility] gist Method Time Signature Neutrophils % 83.7 % [facility] Neutr Abs (ANC) 10.76 (H) 1.70 - [facility] 6.10 [facility] x10(3)/[facility] L LABORATORY Lymphocytes % 6.0 % [facility] Lymphocytes Abs 0.8 (L) 0.9 - 3.2 [facility] x10(3)/[facility] LABORATORY Monocytes % 7.5 % [facility] Monocyte Abs 1.0 (H) 0.3 - 0.9 [facility] x10(3)/[facility] LABORATORY Eosinophils % 2.0 % [facility] Eosinophils Abs 0.3 0.0 - 0.4 [facility] x10(3)/[facility] LABORATORY Basophils % 0.3 % [facility] Basophils Abs 0.0 0.0 - 0.1 [facility] x10(3)/[facility] LABORATORY Immature Gran % 0.50 % [place] [...] Gran Abs 0.06 (H) 0.00 - 0.04 x10(3)/[facility] LABORATORY Specimen Anatomical Collection Method Collection Time Receive d Time (Source) Location / / Volume Laterality Blood specimen 08/11/2017 6:16 AM 018 6:24 (specimen) EST AM EST Resulting Agency Comment Spec In Lab Yonathan Smith MD HEMATOLOGY ORDERABLES Performing Organization Address City/State/[place] [address] (ABNORMAL) Hemogram (08/11/2017 6:16 AM EST) Analysis Performed At Patho logist Time Signature WBC 12.9 (H) 4.0 - 9.5 [facility] x10(3)/[facility] LABORATORY RBC 3.28 (L) 4.58 - [facility] 5[facility]54 [facility] x10(6)/[facility] LABORATORY Hemoglobin 9.5 (L) 13.7 - [facility] 16.5 gm/dL [facility] Hematocrit 29.8 (L) 40.5 - [facility] 48.5 % [facility] MCV 90.9 82.9 - [facility] 93.1 fL [facility] MCH 29.0 27.5 - [facility] 32.1 pg [facility] MCHC 31.9 (L) 32.0 - [facility] 35.7 gm/dL [facility] Platelets 236 145 - 357 [facility] x10(3)/[facility] LABORATORY RDWSD 53.5 (H) 36.0 - [facility] 45.0 [facility] LABORATORY RDWCV 16.3 (H) 11.4 - [facility] RYAN 13.8 % [facility]ORATORY MPV 8.8 7.6 - 12.9 [facility] LABORATORY nRBC % Auto 0.0 % [facility] nRBC Abs Auto 0.000 0.000 - [facility] RYAN 0.000 [facility] x10(3)/[facility] LABORATORY Specimen Anatomical Collection Method Collection Time Receive d Time (Source) Location / / Volume Laterality Blood specimen 08/11/2017 6:16 AM 018 6:24 (specimen) EST AM EST Resulting Agency Comment Spec In Lab Yonathan Smith MD HEMATOLOGY ORDERABLES Performing Organization Address City/[facility] [place] [address] (ABNORMAL) Prothrombin Time (08/11/2017 6:16 AM EST) P athologist Signature PT 15.5 (H) 11.8 - 14.0 [facility] [...] Smith MD HEMATOLOGY ORDERABLES Performing Organization Address City/[facility]/ZIP [facility] [place] [address] Basic Metabolic Panel (non-fasting) (08/11/2017 6:16 AM EST) P athologist Signature Glucose Lvl 139 65 - 199 [facility] mg/dL [facility] Comment: Diabetes: >=200 mg/dL plus symp toms BUN 12 10 - 20 mg/dL [facility]ORY Creatinine 0.91 0.80 - 1.50 mg/dL [facility] [...] or in patients with acute kidney failure. [email or web address] Specimen Anatomical Collection Method Collection Time Receive d Time (Source) Location / / Volume Laterality Blood specimen 08/11/2017 6:16 AM 018 6:24 (specimen) EST AM EST Resulting Agency Comment Spec In Lab Yonathan Smith MD CHEMISTRY ORDERABLES Performing Organization Address City/State/[place] [address] POCT Glucose (08/11/2017 4:07 AM EST) athologist Signature POC Glucose 162 65 - 199 [facility] mg/dL [facility] Comment: Supplemental ranges: <140 mg/dL before meals <180 mg/dL all other times of the day Specimen Anatomical Collection Method Collection Time Receive d Time (Source) Location / / Volume Laterality Blood specimen 08/11/2017 4:07 AM 018 4:07 (specimen) EST AM EST Yonathan mSith MD POINT OF CARE TEST ORDERABLE S Performing Organization Address City/[facility]/[place] [address] POCT Glucose (08/10/2017 11:59 PM EST) athologist Signature POC Glucose 166 65 - 199 [facility] RYAN mg/dL [facility] Comment: Supplemental ranges: <140 mg/dL before meals <180 mg/dL all other times of the day Specimen Anatomical Collection Method Collection Time Receive d Time (Source) Location / / Volume Laterality Blood specimen 08/10/2017 11:59 8 (specimen) PM EST 11:59 PM EST Yonathan Smith MD POINT OF CARE TEST ORDERABLE S Performing Organization Address City/State/ZIP Code Phon e Number [address] POCT Glucose (08/10/2017 8:12 PM EST) athologist Signature POC Glucose 156 65 - 199 BARBARA ZHAORYAN mg/dL [facility] Comment: Supplemental ranges: <140 mg/dL before meals <180 mg/dL all other times of the day Specimen Anatomical Collection Method Collection Time Receive d Time (Source) Location / / Volume Laterality Blood specimen 08/10/2017 8:12 PM 018 8:12 (specimen) EST PM EST Yonathan Smith MD POINT OF CARE TEST ORDERABLE S Performing Organization Address City/State/[place] [address] (ABNORMAL) POCT Glucose (08/10/2017 4:42 PM EST) athologist Signature POC Glucose 211 (H) 65 - 199 [facility] RYAN mg/dL [facility] Comment: Supplemental ranges: <140 mg/dL before meals <180 mg/dL all other times of the day Specimen Anatomical Collection Method Collection Time Receive d Time (Source) Location / / Volume Laterality Blood specimen 08/10/2017 4:42 PM 018 4:42 (specimen) EST PM EST Yonathan Smith MD POINT OF CARE TEST ORDERABLE S Performing Organization Address City/State/ZIP Code Phon e Number [place] [id number] HOS[address]ORY Drive (ABNORMAL) Differential, Automated (08/10/2017 2:30 PM EST) [facility] Method Time Signature Neutrophils % 87.6 % [facility] Neutr Abs (ANC) 9.90 (H) 1.70 - [facility] 6.10 [facility] x10(3)/[facility] L LABORATORY Lymphocytes % 4.3 % [facility] Lymphocytes Abs 0.5 (L) 0.9 - 3.2 [facility] x10(3)/[facility] LABORATORY Monocytes % 6.0 % [facility] Monocyte Abs 0.7 0.3 - 0.9 [facility] x10(3)/[facility] LABORATORY Eosinophils % 1.1 % [facility] Eosinophils Abs 0.1 0.0 - 0.4 [facility] x10(3)/[facility] LABORATORY Basophils % 0.4 % [facility] Basophils Abs 0.0 0.0 - 0.1 [facility] x10(3)/[facility] LABORATORY Immature Gran % 0.60 [...] Address City/State/ZIP Code Phon e Number [address] (ABNORMAL) Hemogram (08/10/2017 2:30 PM EST) Analysis Performed At Patho logist Time Signature WBC 11.3 (H) 4.0 - 9.5 [facility] x[facility](3[facility] LABORATORY RBC 3.13 (L) 4.58 - [facility] R[facility] 5.54 [facility] x10(6)/[facility] LABORATORY Hemoglobin 8.9 (L) 13.7 - [facility] 16.5 gm/dL [facility] Hematocrit 28.4 (L) 40.5 - [facility] 48.5 % [facility]OR[facility]ORY MCV 90.7 82.9 - [facility] 93.1 [facility] LABORATORY MCH 28.4 27.5 - [facility] RYAN 32.1 pg [facility] LABORATORY MCHC 31.3 (L) 32.0 - [facility] RYAN 35.7 gm/dL [facility] Platelets 213 145 - 357 [facility] x10(3)/[facility] LABORATORY RDWSD 53.7 (H) 36.0 - [place] RYAN 45.0 [facility] LABORATORY RDWCV 16.4 (H) 11.4 - [facility] RYAN 13.8 % [facility] LABORATORY MPV 8.9 7.6 - 12.9 [facility]BAR[facility] RYAN [facility] LABORATORY nRBC % Auto 0.0 % [facility] nRBC Abs Auto 0.000 0.000 - [facility] 0.000 [facility] x10(3)/[facility] LABORATORY Specimen Anatomical Collection Method Collection Time Receive d Time (Source) Location / / Volume Laterality Blood specimen 08/10/2017 2:30 PM 018 2:48 (specimen) EST PM EST Resulting Agency Comment Spec In Lab Yonathan Smith MD HEMATOLOGY ORDERABLES Performing Organization Address City/State/[place] [address] (ABNORMAL) POCT Glucose (08/10/2017 1:50 PM EST) athologist Signature POC Glucose 243 (H) 65 - 199 [facility] mg/dL [facility] Comment: Supplemental ranges: <140 mg/dL before meals <180 mg/dL all other times of the day Specimen Anatomical Collection Method Collection Time Receive d Time (Source) Location / / Volume Laterality Blood specimen 08/10/2017 1:50 PM 018 1:50 (specimen) EST PM EST Yonathan Smith MD POINT OF CARE TEST ORDERABLE S Performing Organization Address City/State/ZIP Code Phon e Number [address] POCT Glucose (08/10/2017 11:21 AM EST) athologist Signature POC Glucose 156 65 - 199 [facility] Comment: Supplemental ranges: <140 mg/dL before meals <180 mg/dL all other times of the day Specimen Anatomical Collection Method Collection Time Receive d Time (Source) Location / / Volume Laterality Blood specimen 08/10/2017 11:21 8 (specimen) AM EST 11:21 AM EST Yonathan Smith MD POINT OF CARE TEST ORDERABLE S Performing Organization Address City/State/ZIP Code Phon e Number [address] (ABNORMAL) Differential, Automated (08/10/2017 10:28 AM EST) [facility] gist Method Time Signature Neutrophils % 85.3 % [facility] LABORATORY Neutr Abs (ANC) 9.43 (H) 1.70 - [facility] 6.10 [facility] x10(3)/[facility] L LABORATORY Lymphocytes % 5.5 % [facility] Lymphocytes Abs 0.6 (L) 0.9 - 3.2 [facility] x10(3)/[facility] LABORATORY Monocytes % 5.9 % [facility]OR[facility]ORY Monocyte Abs 0.6 0.3 - 0.9 [facility] x10(3)/[facility] LABORATORY Eosinophils % 2.1 % [facility]OR[facility]ORY Eosinophils Abs 0.2 0.0 - 0.4 [facility] x10(3)/[facility] LABORATORY Basophils % 0.4 % [facility]OR[facility]ORY Basophils Abs 0.0 0.0 - 0.1 [facility] x10(3)/[facility] LABORATORY Immature Gran % 0.80 % [place] [...] Organization Address City/State/[place] [address] (ABNORMAL) Hemogram (08/10/2017 10:28 AM EST) Analysis Performed At Patho logist Time Signature WBC 11.0 (H) 4.0 - 9.5 [facility] x10(3)/[facility] LABORATORY RBC 3.02 (L) 4.58 - [facility] x10(6)/[facility] LABORATORY Hemoglobin 8.8 (L) 13.7 - [facility] 16.5 gm/dL [facility]ORATORY Hematocrit 28.1 (L) 40.5 - [facility] 48.5 % [facility] LABORATORY MCV 93.0 82.9 - [facility] 93.1 fL [facility]ORATORY MCH 29.1 27.5 - [facility] 32.1 pg [facility]ORATORY MCHC 31.3 (L) 32.0 - [facility] 35.7 gm/dL [facility]OR[facility]ORY Platelets 207 145 - 357 [facility] x10(3)/[facility] LABORATORY RDWSD 55.3 (H) 36.0 - [facility] 45.0 [facility] LABORATORY RDWCV 16.4 (H) 11.4 - [facility] 13.8 % [facility] LABORATORY MPV 9.0 7.6 - 12.9 [facility] LABORATORY nRBC % Auto 0.0 % [facility] nRBC Abs Auto 0.000 0.000 - [facility] 0.000 [facility] x10(3)/[facility] LABORATORY Specimen Anatomical Collection Method Collection Time Receive d Time (Source) Location / / Volume Laterality Blood specimen 08/10/2017 10:28 8 (specimen) AM EST 10:35 AM EST Resulting Agency Comment Spec In Lab Yonathan Smith MD HEMATOLOGY ORDERABLES Performing Organization Address City/State/[place] [address] VS Angiogram/intervention (vascular) (08/10/2017 [...] 2.5x80 5. Completion RLE angiogram 6. L DEBURRING AND TOOLING MACHINE OPERATOR angiogram 7. 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 L DEBURRING AND TOOLING MACHINE OPERATOR access in the distal L DEBURRING AND TOOLING MACHINE OPERATOR. - Closure device: Mynx Technical Procedure: [...] for a 45cm 5F Destination. V18 and Midway a nd QuickCross catheters were used to [...] bifurcation. Access appeared in the distal R DEBURRING AND TOOLING MACHINE OPERATOR. Closure and sheath removal was performed [...] 2.5x80 5. Completion RLE angiogram 6. L DEBURRING AND TOOLING MACHINE OPERATOR angiogram 7. 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 L DEBURRING AND TOOLING MACHINE OPERATOR access in the distal L DEBURRING AND TOOLING MACHINE OPERATOR. - Closure device: Mynx Technical Procedure: [...] for a 45cm 5F Destination. V18 and Midway a nd QuickCross catheters were used to [...] bifurcation. Access appeared in the distal R DEBURRING AND TOOLING MACHINE OPERATOR. Closure and sheath removal was performed [...] (ABNORMAL) Differential, Automated (08/10/2017 5:50 AM EST) [facility] Method Time Signature Neutrophils % 80.1 % [facility] LABORATORY Neutr Abs (ANC) 9.01 (H) 1.70 - [facility] 6.10 [facility] x10(3)/[facility] LABORATORY Lymphocytes % 8.8 % [facility] LABORATORY Lymphocytes Abs 1.0 0.9 - 3.2 [facility] x10(3)/[facility] LABORATORY Monocytes % 8.3 % [facility] LABORATORY Monocyte Abs 0.9 0.3 - 0.9 [facility] x10(3)/[facility] LABORATORY Eosinophils % 2.0 % [facility]OR[facility]ORY Eosinophils Abs 0.2 0.0 - 0.4 [facility] x10(3)/[facility] LABORATORY Basophils % 0.4 % [facility] LABORATORY Basophils Abs 0.0 0.0 - 0.1 [facility] x10(3)/[facility] LABORATORY Immature Gran % 0.40 % [place] [...] Organization Address City/State/[place] [address] (ABNORMAL) Hemogram (08/10/2017 5:50 AM EST) Analysis Performed At Patho logist Time Signature WBC 11.3 (H) 4.0 - 9.5 [facility] x10(3)/[facility] LABORATORY RBC 3.15 (L) 4.58 - [facility]54 [facility] x10(6)/[facility] LABORATORY Hemoglobin 8.9 (L) 13.7 - [facility] 16.[facility] gm/dL [facility] LABORATORY Hematocrit 29.0 (L) 40.5 - [facility] 48.5 % [facility] LABORATORY MCV 92.1 82.9 - [facility] 93.1 [facility] LABORATORY MCH 28.3 27.5 - [facility] RYAN 32.1 pg [facility] LABORATORY MCHC 30.7 (L) 32.0 - [facility] 35.7 gm/dL [facility] LABORATORY Platelets 231 145 - 357 [facility] x10(3)/[facility] LABORATORY RDWSD 53.9 (H) 36.0 - [facility] RYAN 45.0 [facility] LABORATORY RDWCV 16.2 (H) 11.4 - [facility] RYAN 13.8 % [facility] LABORATORY MPV 8.7 7.6 - 12.9 [facility] LABORATORY nRBC % Auto 0.0 % [facility] LABORATORY nRBC Abs Auto 0.000 0.000 - [place] RYAN 0.000 [facility] x10(3)/[facility] LABORATORY Specimen Anatomical Collection Method Collection Time Receive d Time (Source) Location / / Volume Laterality Blood specimen 08/10/2017 5:50 AM 018 5:59 (specimen) EST AM EST Resulting Agency Comment Spec In Lab Yonathan Smith MD HEMATOLOGY ORDERABLES Performing Organization Address City/State/[place] [address] (ABNORMAL) Basic Metabolic Panel (non-fasting) (08/10/2017 5:50 AM EST) P athologist Signature Glucose Lvl 135 65 - 199 [facility] mg/dL [facility] LABORATORY Comment: [...] or in patients with acute kidney failure. [email or web address] [email or web address] Specimen Anatomical Collection Method Collection Time Receive d Time (Source) Location / / Volume Laterality Blood specimen 08/10/2017 5:50 AM 018 5:59 (specimen) EST AM EST Resulting Agency Comment Spec In Lab Yonathan Smith MD CHEMISTRY ORDERABLES Performing Organization Address City/State/[place] [address] (ABNORMAL) Prothrombin Time (08/10/2017 5:50 AM EST) athologist Signature PT 16.8 (H) 11.8 - 14.0 [facility] LABORATORY INR 1.4 (H) 0.9 - [...] Smith MD HEMATOLOGY ORDERABLES Performing Organization Address City/[facility]/[place] [address] (ABNORMAL) POCT Glucose (08/10/2017 4:01 AM EST) athologist Signature POC Glucose 206 (H) 65 - 199 [facility] mg/dL [facility] LABORATORY Comment: Supplemental ranges: <140 mg/dL before meals <180 mg/dL all other times of the day Specimen Anatomical Collection Method Collection Time Receive d Time (Source) Location / / Volume Laterality Blood specimen 08/10/2017 4:01 AM 018 4:01 (specimen) EST AM EST Yonathan Smith MD POINT OF CARE TEST ORDERABLE S Performing Organization Address City/State/[place] [address] POCT Glucose (08/10/2017 2:01 AM EST) athologist Signature POC Glucose 188 65 - 199 [facility]AN mg/dL [facility] LABORATORY Comment: Supplemental ranges: <140 mg/dL before meals <180 mg/dL all other times of the day Specimen Anatomical Collection Method Collection Time Receive d Time (Source) Location / / Volume Laterality Blood specimen 08/10/2017 2:01 AM 018 2:01 (specimen) EST AM EST Yonathan Smith MD POINT OF CARE TEST ORDERABLE S Performing Organization Address City/State/[place] [address] (ABNORMAL) POCT Glucose (08/09/2017 11:42 PM EST) P athologist Signature POC Glucose 283 (H) 65 - 199 [facility] mg/dL [facility] LABORATORY Comment: Supplemental ranges: <140 [...] [facility]/[place] [address] POCT Glucose (08/09/2017 8:55 PM EST) P athologist Signature POC Glucose 182 65 - 199 [facility] mg/dL [facility] LABORATORY Comment: Supplemental ranges: <140 mg/dL before meals <180 mg/dL all other times of the day Specimen Anatomical Collection Method Collection Time Receive d Time (Source) Location / / Volume Laterality Blood specimen 08/09/2017 8:55 PM 018 8:55 (specimen) EST PM EST Yonathan Smith MD POINT OF CARE TEST ORDERABLE S Performing Organization Address City/State/[place] [address] (ABNORMAL) APTT (08/09/2017 6:42 PM EST) P athologist Signature PTT 90 (H) 25 - 35 sec [facility] LABORATORY Comment: The recommended therapeutic range for fu ll dose, unfractionated heparin at [facility] is 80 ? 114 seconds. [...] Smith MD HEMATOLOGY ORDERABLES Performing Organization Address City/[facility]/ZIP Code Phon e Number [address] POCT Glucose (08/09/2017 4:41 PM EST) athologist Signature POC Glucose 195 65 - 199 [facility]dL [facility] LABORATORY Comment: Supplemental ranges: <140 [...] [facility]/ZIP Code Phon e Number [address] POCT Glucose (08/09/2017 12:29 PM EST) athologist Signature POC Glucose 140 65 - 199 [facility]dL [facility] LABORATORY Comment: Supplemental ranges: <140 mg/dL before meals <180 mg/dL all other times of the day Specimen Anatomical Collection Method Collection Time Receive d Time (Source) Location / / Volume Laterality Blood specimen 08/09/2017 12:29 8 (specimen) PM EST 12:29 PM EST Yonathan Smith MD POINT OF CARE TEST ORDERABLE S Performing Organization Address City/[facility]/ZIP [facility] Phon e Number [address] POCT Glucose (08/09/2017 9:59 AM EST) athologist Signature POC Glucose 135 65 - 199 [facility] mg/dL [facility] LABORATORY Comment: Supplemental ranges: <140 [...] [facility]/[place] [address] Specimen to Pathology (08/09/2017 8:41 AM EST) Specimen Anatomical Collection Method Collection Time Receive d Time (Source) Location / / Volume Laterality AP Specimen 08/09/2017 8:41 AM 8 8:41 EST AM EST Narrative [facility] LABORAT ORY - 08/09/2017 8:41 AM EST Specimen requisition ordered. ??Separate Pathology report to follow Yonathan Smith MD PATHOLOGY/CYTOLOGY ORDERABLE S Performing Organization Address City/[facility]/[place] [address] Surgical Pathology Report (08/09/2017 8:40 AM EST) Component Value Ref Test Analysis Performed At [facility] gist Range Method Time Signature Surgical [id number] ? Location: [facility]; [facility]; [facility] Report The signing pathologist has (i) examined the relevant preparation(s) for the [facility] specimen(s) and (ii) rendered or confirmed the diagnosis(es) . HOSPITAL LABORATORY . 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 ?Viable proximal resection margins. Electronically signed by: ??Manjit STRANGE, Henrique Flower Verified: ??08/13/2017 ?Pathologist Performed at: ??-[facility] Dept. of Pathology, [place], [place] CLINICAL INFORMATION Specimen Submitted: A - [...] Organization Address City/State/[place] [address] Anaerobic Culture (08/09/2017 8:30 AM EST) [facility] gist Method Time Signature Anaerobic No anaerobic [facility] Culture organisms [facility] LABORATORY Specimen Anatomical Collection Method Collection [...] Organization Address City/State/[place] [address] (ABNORMAL) Abscess/Wound Aspirate Culture (08/09/2017 8:30 AM EST) Patholo gist Method Time Signature Abscess/Wound Moderate mixed [facility] Aspirate bacterial [place] Culture morphotypes [facility] normal LABORATORY cutaneous leroy (A) Gram Stain Rare White Blood Cells [place] Few Gram Positive Cocci in pairs [place] () [facility] LABORATORY Organism Gram Positive [place] Cocci in pairs [place] () [facility] LABORATORY Specimen Anatomical [...] - GENERAL ORDER ROBSON Performing Organization Address City/[facility]/[place] [address] POCT Glucose (08/09/2017 4:28 AM EST) P athologist Signature POC Glucose 128 65 - 199 [facility] mg/dL [facility] LABORATORY Comment: Supplemental ranges: <140 mg/dL before meals <180 mg/dL all other times of the day Specimen Anatomical Collection Method Collection Time Receive d Time (Source) Location / / Volume Laterality Blood specimen 08/09/2017 4:28 AM 018 4:28 (specimen) EST AM EST Yonathan Smith MD POINT OF CARE TEST ORDERABLE S Performing Organization Address City/State/ZIP Code Phon e Number [address] ABORH Recheck Status (08/09/2017 [...] MD BLOOD BANK ORDERABLES Performing Organization Address City/[facility]/[place] [address] Antibody screen (08/09/2017 1:10 AM EST) Patholo gist Method Time Signature Ab Screen Negative [facility] LABORATORY Expires at 08/12/2017 [place] ZHAORYAN [id number] on: [facility] LABORATORY Specimen Anatomical Collection Method Collection Time Receive d Time (Source) Location / / Volume Laterality Blood specimen 08/09/2017 1:10 AM 018 1:35 (specimen) EST AM EST Resulting Agency Comment Spec In Lab Yonathan Smith MD BLOOD BANK ORDERABLES Performing Organization Address City/[facility]/[place] [address] ABO/Rh Typing (08/09/2017 1:10 AM EST) P athologist Signature ABORh Type O Pos [facility] LABORATORY Specimen Anatomical Collection Method Collection Time Receive d Time (Source) Location / / Volume Laterality Blood specimen 08/09/2017 1:10 AM 018 1:35 (specimen) EST AM EST Resulting Agency Comment Spec In Lab Yonathan Smith MD BLOOD BANK ORDERABLES Performing Organization Address City/[facility]/[place] [address] (ABNORMAL) APTT (08/09/2017 1:10 AM EST) P athologist Signature PTT 86 (H) 25 - 35 sec [facility] LABORATORY Comment: The recommended therapeutic range for fu ll dose, unfractionated heparin at [facility] is 80 ? 114 seconds. [...] Organization Address City/State/[place] [address] (ABNORMAL) Differential, Automated (08/09/2017 1:10 AM EST) [facility] Method Time Signature Neutrophils % 76.2 % [facility] LABORATORY Neutr Abs (ANC) 8.59 (H) 1.70 - [facility] 6.10 [facility] x10(3)/[facility] LABORATORY Lymphocytes % 11.0 % [facility] LABORATORY Lymphocytes Abs 1.2 0.9 - 3.2 [facility] x10(3)/[facility] LABORATORY Monocytes % 8.4 % [facility] LABORATORY Monocyte Abs 1.0 (H) 0.3 - 0.9 [facility] x10(3)/[facility] LABORATORY Eosinophils % 3.5 % [facility] LABORATORY Eosinophils Abs 0.4 0.0 - 0.4 [facility] x10(3)/[facility] LABORATORY Basophils % 0.5 % [facility] LABORATORY Basophils Abs 0.1 0.0 - 0.1 [facility] x10(3)/[facility] LABORATORY Immature Gran % 0.40 % [facility] [...] Organization Address City/State/[place] [address] (ABNORMAL) Hemogram (08/09/2017 1:10 AM EST) Analysis Performed At Patho logist Time Signature WBC 11.3 (H) 4.0 - 9.5 [facility](3[facility] LABORATORY RBC 3.47 (L) 4.58 - [place] [facility]AN 5.54 [facility] x10(6)/[facility] LABORATORY Hemoglobin 10.0 (L) 13.7 - [facility] 16.5 gm/dL [facility] LABORATORY Hematocrit 31.9 (L) 40.5 - [facility] 48.5 % [facility] LABORATORY MCV 91.9 82.9 - [facility] 93.1 [facility] LABORATORY MCH 28.8 27.5 - [facility] 32.1 pg [facility] LABORATORY MCHC 31.3 (L) 32.0 - [facility] 35.7 gm/dL [facility] LABORATORY Platelets 234 145 - 357 [facility] x10(3)/[facility] LABORATORY RDWSD 54.0 (H) 36.0 - [facility] 45.0 [facility] LABORATORY RDWCV 16.2 (H) 11.4 - [facility] 13.8 % [facility] LABORATORY MPV 8.7 7.6 - 12.9 [facility] LABORATORY nRBC % Auto 0.0 % [facility] LABORATORY nRBC Abs Auto 0.000 0.000 - [facility] 0.000 [facility] x10(3)/[facility] LABORATORY Specimen Anatomical Collection Method Collection Time Receive d Time (Source) Location / / Volume Laterality Blood specimen 08/09/2017 1:10 AM 018 1:19 (specimen) EST AM EST Resulting Agency Comment Spec In Lab Yonathan Smith MD HEMATOLOGY ORDERABLES Performing Organization Address City/State/[place] [address] (ABNORMAL) Prothrombin Time (08/09/2017 1:10 AM EST) P athologist Signature PT 16.0 (H) 11.8 - 14.0 [facility] [...] Organization Address City/State/[place] [address] (ABNORMAL) Basic Metabolic Panel (non-fasting) (08/09/2017 1:10 AM EST) athologist Signature Glucose Lvl 108 65 - 199 [facility] mg/dL [facility] LABORATORY Comment: Diabetes: >=200 mg/dL plus symp toms BUN 34 (H) 10 - 20 mg/dL [facility] LABORATORY Creatinine 1.54 (H) 0.80 - 1.50 mg/dL [facility] LAB[facility]ORY Estimated GFR 45 (L) >=60 [facility] LABORATORY Comment: The reported eGFR should be multiplied b y 1.2 for patients. The MDRD is not an appropriate measure o f renal function for patients with body mass extremes or in patients with acute kidney failure. http://TrueAccord/DHnkdep http://TrueAccord/DHMCnkf Specimen Anatomical Collection Method Collection Time Receive d Time (Source) Location / / Volume Laterality Blood specimen 08/09/2017 1:10 AM 018 1:19 (specimen) EST AM EST Resulting Agency Comment Spec In Lab Yonathan Smith MD CHEMISTRY ORDERABLES Performing Organization Address City/[facility]/ZIP [facility] Phon e Number [address] POCT Glucose (08/09/2017 12:05 AM EST) P athologist Signature POC Glucose 128 65 - 199 [facility]/dL [facility] LABORATORY Comment: Supplemental ranges: <140 [...] [facility]/[place] [address] (ABNORMAL) POCT Glucose (08/08/2017 7:36 PM EST) P athologist Signature POC Glucose 215 (H) 65 - 199 [facility] mg/dL [facility] LABORATORY Comment: Supplemental ranges: <140 mg/dL before meals <180 mg/dL all other times of the day Specimen Anatomical Collection Method Collection Time Receive d Time (Source) Location / / Volume Laterality Blood specimen 08/08/2017 7:36 PM 018 7:36 (specimen) EST PM EST Yonathan Smith MD POINT OF CARE TEST ORDERABLE S Performing Organization Address City/State/[place] [address] (ABNORMAL) POCT Glucose (08/08/2017 6:23 PM EST) athologist Signature POC Glucose 216 (H) 65 - 199 [facility]dL [facility] LABORATORY Comment: Supplemental ranges: <140 [...] [facility]/[place] [address] (ABNORMAL) APTT (08/08/2017 6:00 PM EST) athologist Signature PTT 97 (H) 25 - 35 sec [facility] LABORATORY Comment: The recommended therapeutic range for fu ll dose, unfractionated heparin at [facility] is 80 ? 114 seconds. [...] Organization Address City/State/[place] [address] POCT Glucose (08/08/2017 4:42 PM EST) athologist Signature POC Glucose 78 65 - 199 [facility]dL [facility] LABORATORY Comment: Supplemental ranges: <140 mg/dL before meals <180 mg/dL all other times of the day Specimen Anatomical Collection Method Collection Time Receive d Time (Source) Location / / Volume Laterality Blood specimen 08/08/2017 4:42 PM 018 4:42 (specimen) EST PM EST Yonathan Smith MD POINT OF CARE TEST ORDERABLE S Performing Organization Address City/State/[place] [address] (ABNORMAL) POCT Glucose (08/08/2017 4:01 PM EST) P athologist Signature POC Glucose 58 (L) 65 - 199 [facility] mg/dL [facility] LABORATORY Comment: Supplemental ranges: <140 [...] [facility]/[place] [address] POCT Glucose (08/08/2017 11:51 AM EST) athologist Signature POC Glucose 90 65 - 199 [facility] mg/dL [facility] LABORATORY Comment: Supplemental ranges: <140 [...] [facility]/[place] [address] (ABNORMAL) APTT (08/08/2017 10:27 AM EST) P athologist Signature PTT 64 (H) 25 - 35 sec [facility] LABORATORY Comment: The recommended therapeutic range for fu ll dose, unfractionated heparin at [facility] is 80 ? 114 seconds. [...] Smith MD HEMATOLOGY ORDERABLES Performing Organization Address City/[facility]/[place] [address] POCT Glucose (08/08/2017 8:02 AM EST) athologist Signature POC Glucose 178 65 - 199 [facility] mg[facility]dL [facility] LABORATORY Comment: Supplemental ranges: <140 mg/dL before meals <180 mg/dL all other times of the day Specimen Anatomical Collection Method Collection Time Receive d Time (Source) Location / / Volume Laterality Blood specimen 08/08/2017 8:02 AM 018 8:02 (specimen) EST AM EST Yonathan Smith MD POINT OF CARE TEST ORDERABLE S Performing Organization Address City/[facility] [place] [address] (ABNORMAL) APTT (08/08/2017 4:51 AM EST) athologist Signature PTT >160 25 - 35 [facility] ([facility]) sec [facility] LABORATORY Comment: Called by: HOWARD, Read back by: Melba Jaramillo, Date/Time:08/08/17 05:43. The recommended therapeutic range for fu ll dose, unfractionated heparin at [facility] is 80 ? 114 seconds. [...] Smith MD HEMATOLOGY ORDERABLES Performing Organization Address City/[facility]/ZIP [facility] [place] [address] (ABNORMAL) Differential, Automated (08/08/2017 4:51 AM EST) Patholo gist Method Time Signature Neutrophils % 77.9 % [facility] LABORATORY Neutr Abs (ANC) 8.17 (H) 1.70 - [facility] 6.10 [facility] x10(3)/[facility] LABORATORY Lymphocytes % 10.3 % [facility] LABORATORY Lymphocytes Abs 1.1 0.9 - 3.2 [facility] x10(3)/[facility] LABORATORY Monocytes % 7.0 % [facility] LABORATORY Monocyte Abs 0.7 0.3 - 0.9 [facility] x10(3)/[facility] LABORATORY Eosinophils % 3.6 % [facility] LABORATORY Eosinophils Abs 0.4 0.0 - 0.4 [facility] x10(3)/[facility] LABORATORY Basophils % 0.5 % [facility] LABORATORY Basophils Abs 0.0 0.0 - 0.1 [facility] x10(3)/[facility] LABORATORY Immature Gran % 0.70 [...] Organization Address City/State/[place] [address] (ABNORMAL) Hemogram (08/08/2017 4:51 AM EST) Analysis Performed At Patho logist Time Signature WBC 10.5 (H) 4.0 - 9.5 [facility] x10(3)/[facility] LABORATORY RBC 3.27 (L) 4.58 - [facility] RYAN 5.54 [facility] x10(6)/[facility] LABORATORY Hemoglobin 9.3 (L) 13.7 - [facility] 16[facility] gm/dL [facility] LABORATORY Hematocrit 30.3 (L) 40.5 - [facility] 48.5 % [facility] LABORATORY MCV 92.7 82.9 - [facility] 93.1 [facility] LABORATORY MCH 28.4 27.5 - [facility] 32.1 pg [facility] LABORATORY MCHC 30.7 (L) 32.0 - [facility] 35.[facility] gm/dL [facility] LABORATORY Platelets 252 145 - 357 [facility] x10(3)/[facility] LABORATORY RDWSD 54.6 (H) 36.0 - [facility] 45.0 [facility] LABORATORY RDWCV 16.2 (H) 11.4 - [facility] 13.8 % [facility] LABORATORY MPV 9.1 7.6 - 12.9 [facility] LABORATORY nRBC % Auto 0.0 % [facility] LABORATORY nRBC Abs Auto 0.000 0.000 - [facility] 0.000 [facility] x10(3)/[facility] LABORATORY Specimen Anatomical Collection Method Collection Time Receive d Time (Source) Location / / Volume Laterality Blood specimen 08/08/2017 4:51 AM 018 5:14 (specimen) EST AM EST Resulting Agency Comment Spec In Lab Yonathan Smith MD HEMATOLOGY ORDERABLES Performing Organization Address City/State/[place] [address] (ABNORMAL) Prothrombin Time (08/08/2017 4:51 AM EST) P athologist Signature PT 18.1 (H) 11.8 - 14.0 [facility] LABORATORY INR 1.5 (H) 0.9 - [...] Organization Address City/State/[place] [address] (ABNORMAL) Basic Metabolic Panel (non-fasting) (08/08/2017 4:51 AM EST) P athologist Signature Glucose Lvl 229 (H) 65 - 199 [facility] mg/dL [facility] LABORATORY Comment: Diabetes: >=200 mg/dL plus symp toms BUN 35 (H) 10 - 20 mg/dL [facility] LABORATORY Creatinine 1.57 (H) 0.80 - 1.50 mg/dL [facility] LAB[facility] Estimated GFR 44 (L) >=60 [facility] LABORATORY Comment: The reported eGFR should be multiplied b y 1.2 for patients. The MDRD is not an appropriate measure o f renal function for patients with body mass extremes or in patients with acute kidney failure. [email or web address] [email or web address]/DHMCnkf Specimen Anatomical Collection Method Collection Time Receive d Time (Source) Location / / Volume Laterality Blood specimen 08/08/2017 4:51 AM 018 5:14 (specimen) EST AM EST Resulting Agency Comment Spec In Lab Yonathan Smith MD CHEMISTRY ORDERABLES Performing Organization Address City/State/ZIP Code Phon e Number [address] POCT Glucose (08/08/2017 4:20 AM EST) athologist Signature POC Glucose 193 65 - 199 [facility]dL [facility] LABORATORY Comment: Supplemental ranges: <140 [...] [facility]/ZIP Code Phon e Number [address] POCT Glucose (08/07/2017 11:11 PM EST) athologist Signature POC Glucose 124 65 - 199 [facility]dL [facility] LABORATORY Comment: Supplemental ranges: <140 [...] [facility]/ZIP Code Phon e Number [address] (ABNORMAL) APTT (08/07/2017 10:18 PM EST) P athologist Signature PTT 114 (H) 25 - 35 sec [facility] LABORATORY Comment: The recommended therapeutic range for fu ll dose, unfractionated heparin at [facility] is 80 ? 114 seconds. [...] Smith MD HEMATOLOGY ORDERABLES Performing Organization Address City/[facility] Phon e Number [address] POCT Glucose (08/07/2017 8:10 PM EST) athologist Signature POC Glucose 140 65 - 199 [facility]dL [facility] LABORATORY Comment: Supplemental ranges: <140 [...] [facility]/ZIP Code Phon e Number [address] POCT Glucose (08/07/2017 5:27 PM EST) athologist Signature POC Glucose 187 65 - 199 [facility] mg/dL [facility] LABORATORY Comment: Supplemental ranges: <140 [...] [facility]/ZIP Code Phon e Number [address] POCT Glucose (08/07/2017 3:29 PM EST) athologist Signature POC Glucose 86 65 - 199 [facility] LABORATORY Comment: Supplemental ranges: <140 [...] [facility]/[place] [address] (ABNORMAL) APTT (08/07/2017 2:50 PM EST) athologist Signature PTT 60 (H) 25 - 35 sec [facility] LABORATORY Comment: The recommended therapeutic range for fu ll dose, unfractionated heparin at [facility] is 80 ? 114 seconds. [...] Smith MD HEMATOLOGY ORDERABLES Performing Organization Address City/[facility]/[place] [address] (ABNORMAL) POCT Glucose (08/07/2017 2:23 PM EST) athologist Signature POC Glucose 55 (L) 65 - 199 [facility] mg/dL [facility] LABORATORY Comment: Supplemental ranges: <140 mg/dL before meals <180 mg/dL all other times of the day Specimen Anatomical Collection Method Collection Time Receive d Time (Source) Location / / Volume Laterality Blood specimen 08/07/2017 2:23 PM 018 2:23 (specimen) EST PM EST Yonathan Smith MD POINT OF CARE TEST ORDERABLE S Performing Organization Address City/State/[place] [address] [facility] [address] POCT Glucose (08/07/2017 12:08 PM EST) P athologist Signature POC Glucose 77 65 - 199 [facility] mg/dL [facility] LABORATORY Comment: Supplemental ranges: <140 mg/dL before meals <180 mg/dL all other times of the day Specimen Anatomical Collection Method Collection Time Receive d Time (Source) Location / / Volume Laterality Blood specimen 08/07/2017 12:08 8 (specimen) PM EST 12:08 PM EST Yonathan Smith MD POINT OF CARE TEST ORDERABLE S Performing Organization Address City/State/ZIP Code Phon e Number [address] (ABNORMAL) Differential, Automated (08/07/2017 7:30 AM EST) Patholo gist Method Time Signature Neutrophils % 73.8 % [facility] LABORATORY Neutr Abs (ANC) 7.17 (H) 1.70 - [facility] 6.10 [facility] x10(3)/[facility] LABORATORY Lymphocytes % 12.2 % [facility] LABORATORY Lymphocytes Abs 1.2 0.9 - 3.2 [facility] x10(3)/[facility] LABORATORY Monocytes % 9.0 % [facility] LABORATORY Monocyte Abs 0.9 0.3 - 0.9 [facility] x10(3)/[facility] LABORATORY Eosinophils % 3.9 % [facility] LABORATORY Eosinophils Abs 0.4 0.0 - 0.4 [facility] x10(3)/[facility] LABORATORY Basophils % 0.6 % [facility] LABORATORY Basophils Abs 0.1 0.0 - 0.1 [facility] x10(3)/[facility] LABORATORY Immature Gran % 0.50 % [facility] [...] Organization Address City/State/[place] [address] (ABNORMAL) Hemogram (08/07/2017 7:30 AM EST) Analysis Performed At Patho logist Time Signature WBC 9.7 (H) 4.0 - 9.5 [facility] x10(3)/[facility] LABORATORY RBC 3.54 (L) 4.58 - [facility] 5.54 [facility] x10(6)/[facility] LABORATORY Hemoglobin 9.9 (L) 13.7 - [facility] 16.5 gm/dL [facility] LABORATORY Hematocrit 32.3 (L) 40.5 - [facility] 48.5 % [facility] LABORATORY MCV 91.2 82.9 - [facility] 93.1 [facility] LABORATORY MCH 28.0 27.5 - [facility] 32.1 pg [facility] LABORATORY MCHC 30.7 (L) 32.0 - [facility] 35.7 gm/dL [facility] LABORATORY Platelets 312 145 - 357 [facility] x10(3)/[facility] LABORATORY RDWSD 53.2 (H) 36.0 - [facility] 45.0 [facility] LABORATORY RDWCV 16.0 (H) 11.4 - [facility] 13.8 % [facility] LABORATORY MPV 8.9 7.6 - 12.9 [facility] LABORATORY nRBC % Auto 0.0 % [facility] LABORATORY nRBC Abs Auto 0.000 0.000 - [facility] 0.000 [facility] x10(3)/[facility] LABORATORY Specimen Anatomical Collection Method Collection Time Receive d Time (Source) Location / / Volume Laterality Blood specimen 08/07/2017 7:30 AM 018 7:45 (specimen) EST AM EST Resulting Agency Comment Spec In Lab Yonathan Smith MD HEMATOLOGY ORDERABLES Performing Organization Address City/State/[place] [address] (ABNORMAL) Basic Metabolic Panel (non-fasting) (08/07/2017 7:30 AM EST) athologist Signature Glucose Lvl 80 65 - 199 [facility] mg/dL [facility] LABORATORY Comment: Diabetes: >=200 mg/dL plus symp toms BUN 31 (H) 10 - 20 mg/dL [facility] LABORATORY Creatinine 1.22 0.80 - 1.50 mg/dL [facility] [...] CENTER LABORATORY Estimated GFR 59 (L) >=60 [facility] LABORATORY Comment: The reported eGFR should be multiplied b y 1.2 for patients. The MDRD is not an appropriate measure o f renal function for patients with body mass extremes or in patients with acute kidney failure. http://Blinpick.WebinarHero/DHnkdep http://TrueAccord/DHMCnkf Specimen Anatomical Collection Method Collection Time Receive d Time (Source) Location / / Volume Laterality Blood specimen 08/07/2017 7:30 AM 018 7:45 (specimen) EST AM EST Resulting Agency Comment Spec In Lab Yonathan Smith MD CHEMISTRY ORDERABLES Performing Organization Address City/[facility]/ZIP Code Phon e Number [address] POCT Glucose (08/07/2017 7:27 AM EST) athologist Signature POC Glucose 81 65 - 199 [facility] mg/dL [facility] LABORATORY Comment: Supplemental ranges: <140 mg/dL before meals <180 mg/dL all other times of the day Specimen Anatomical Collection Method Collection Time Receive d Time (Source) Location / / Volume Laterality Blood specimen 08/07/2017 7:27 AM 018 7:27 (specimen) EST AM EST Yonathan Smith MD POINT OF CARE TEST ORDERABLE S Performing Organization Address [facility] Phon e Number [address] APTT (08/07/2017 7:04 AM EST) athologist Signature PTT 34 25 - 35 sec [facility] LABORATORY Comment: The recommended therapeutic range for fu ll dose, unfractionated heparin at [facility] is 80 ? 114 seconds. [...] Smith MD HEMATOLOGY ORDERABLES Performing Organization Address City/[facility]/ZIP [facility] Phon e Number [address] (ABNORMAL) Prothrombin Time (08/07/2017 7:04 AM EST) athologist Signature PT 17.3 (H) 11.8 - 14.0 [facility] LABORATORY INR 1.4 (H) 0.9 - [...] Address City/State/ZIP Code Phon e Number [address] POCT Glucose (08/07/2017 4:03 AM EST) athologist Signature POC Glucose 93 65 - 199 [facility]dL [facility] LABORATORY Comment: Supplemental ranges: <140 mg/dL before meals <180 mg/dL all other times of the day Specimen Anatomical Collection Method Collection Time Receive d Time (Source) Location / / Volume Laterality Blood specimen 08/07/2017 4:03 AM 018 4:03 (specimen) EST AM EST Yonathan Smith MD POINT OF CARE TEST ORDERABLE S Performing Organization Address City/State/ZIP Code Phon e Number [address] POCT Glucose (08/07/2017 12:04 AM EST) athologist Signature POC Glucose 107 65 - 199 [facility] mg/dL [facility] LABORATORY Comment: Supplemental ranges: <140 mg/dL before meals <180 mg/dL all other times of the day Specimen Anatomical Collection Method Collection Time Receive d Time (Source) Location / / Volume Laterality Blood specimen 08/07/2017 12:04 8 (specimen) AM EST 12:04 AM EST Yonathan Smith MD POINT OF CARE TEST ORDERABLE S Performing Organization Address City/State/[place] [address] POCT Glucose (08/06/2017 7:56 PM EST) P athologist Signature POC Glucose 178 65 - 199 [facility] mg/dL [facility] LABORATORY Comment: Supplemental ranges: <140 mg/dL before meals <180 mg/dL all other times of the day Specimen Anatomical Collection Method Collection Time Receive d Time (Source) Location / / Volume Laterality Blood specimen 08/06/2017 7:56 PM 018 7:56 (specimen) EST PM EST Yonathan Smith MD POINT OF CARE TEST ORDERABLE S Performing Organization Address City/State/[place] [address] TcPO2 (08/06/2017 2:32 PM EST) Component Value Ref Test Analysis Performed At Patholo gist Range Method Time Signature VB Text Department: Vascular Surgery Lab VASCUBASE Report Patient: [id number] (GREGORY HOANG) CPT: [id number] ICD10: I99.8 Referring Physician: YONATHAN SMITH ?? [...]
Routine documented in this encounter Care Teams Radio Frequency Engineer Relationship Specialty Start Date End Date Lovely Vicente MD PCP - General 04/16/[address] [place] [address] documented as of this encounter
--- OUTSIDE RECORDS SUMMARY | 2022-03-04 14:54 | XMS_ITS | Encounter Summary ---
:1945 Author Organization [facility] [place] [address] Care Team Providers Name Role Phone Lovely Vicente MD Primary Care Provider Reason for Visit Auth/Cert Specialty Diagnoses / Procedures Referred By Contact Refer red To Contact Diagnoses Critical lower limb ischemia CELLULITIS RT FOOT Procedures EMERGENCY Referral ID Status Reason Start Date Expiration Date Visits Requ ested Visits Authorized [id number] 1 1 Encounter Details Date Type Department Care Team Description 08/06/2017 Laboratory Appointment Lab at [facility] [place] [place] [address] Social History Tobacco Use Types Packs/Day [...] MD [facility] ER DR TADEO [place], [place] [address] (Wo rk) 06/10/2022 Office Visit Dermatology Laura Scherer MD [facility] ER DR TEJA GR-DERMAT OLOGY [place], [place] [address] (Wo rk) documented as of [...] 19 (L) 20 - [address] [facility] mg[facility]dL [facility] Comment: Prealbumin levels are generally lower in the pediatric population; adult concentrations are usually attained near puberty. Specimen Anatomical Collection Method Collection Time Receive d Time (Source) Location / / Volume Laterality Blood specimen 08/06/2017 12:32 8 1:15 (specimen) PM EST PM EST Resulting Agency Comment Spec In Lab Arik Clement MD CHEMISTRY ORDERABLES Performing Organization Address City/State/[place] [address] (ABNORMAL) Basic Metabolic Panel (non-fasting) (08/06/2017 12:32 PM EST) P athologist Signature Glucose Lvl 92 65 - 199 [facility] mg/dL [facility] Comment: Diabetes: >=200 [...] Chloride 97 (L) 98 - 107 mmol/L [facility] LABORATORY CO2 25 22 - 31 mmol/L [facility] LABORATORY Anion Gap 16 (H) 5 - 15 mmol/L [facility] LABORATORY Calcium 8.5 8.5 - 10.5 mg/dL [facility] LABORATORY Estimated GFR 53 (L) >=60 [facility] LABORATORY Comment: The reported eGFR should be multiplied b y 1.2 for patients. The MDRD is not an appropriate measure o f renal function for patients with body mass extremes or in patients with acute kidney failure. http://EditGrid/DHnkdep http://EditGrid/DHMCnkf Specimen Anatomical Collection Method Collection Time Receive d Time (Source) Location / / Volume Laterality Blood specimen 08/06/2017 12:32 8 1:15 (specimen) PM EST PM EST Resulting Agency Comment Spec In Lab Arik Clement MD CHEMISTRY ORDERABLES Performing Organization Address City/State/[place] [address] (ABNORMAL) Hemogram (08/06/2017 12:32 PM EST) Analysis Performed At Patho logist Time Signature WBC 11.8 (H) 4.0 - 9.5 [facility] x10(3)/[facility] LABORATORY RBC 3.49 (L) 4.58 - [facility] 5.54 [facility] x10(6)/[facility] LABORATORY Hemoglobin 9.9 (L) 13.7 - [facility] 16.5 gm/dL [facility] Hematocrit 32.0 (L) 40.5 - [facility] 48.5 % [facility] MCV 91.7 82.9 - [facility] 93.1 fL [facility] MCH 28.4 27.5 - [facility] 32.1 pg [facility] MCHC 30.9 (L) 32.0 - [facility] 35.7 gm/dL [facility] Platelets 326 145 - 357 [facility] x10(3)/[facility] LABORATORY RDWSD 53.4 (H) 36.0 - [facility] 45.0 [facility] LABORATORY RDWCV 16.0 (H) 11.4 - [facility] 13.8 % [facility] MPV 9.1 7.6 - 12.9 [facility] LABORATORY nRBC % Auto 0.0 % [facility] LABORATORY nRBC Abs Auto 0.000 0.000 - [facility] 0.000 [facility] x10(3)/[facility] LABORATORY Specimen Anatomical Collection Method Collection Time Receive d Time (Source) Location / / Volume Laterality Blood specimen 08/06/2017 12:32 8 1:15 (specimen) PM EST PM EST Resulting Agency Comment Spec In Lab Arik Clement MD HEMATOLOGY ORDERABLES Performing Organization Address City/State/[place] [address] documented in this encounter Visit Diagnoses Diagnosis Ischemia of foot Unspecified circulatory system disorder documented in this encounter Care Teams Transportation Worker Relationship Specialty Start Date End Date Lovely Vicente MD PCP - General 04/16/[address] [place] [address] documented as of this encounter
--- OUTSIDE RECORDS SUMMARY | 2022-03-04 14:54 | XMS_ITS | Encounter Summary ---
:1945 Author Organization [facility] [place] [address] Care Team Providers Name Role Phone Lovely Vicente MD Primary Care Provider Reason for Visit Auth/Cert Specialty Diagnoses / Procedures Referred By Contact Refer red To Contact Diagnoses Critical lower limb ischemia CELLULITIS RT FOOT Procedures EMERGENCY Referral ID Status Reason Start Date Expiration Date Visits Requ ested Visits Authorized [id number] 1 1 Encounter Details Date Type Department Care Team Description 08/04/2017 Hospital Encounter XRay at [facility] Danette Maxwell Incisional pain [address] [place] [address] Dr Gomes, AOC AADC OPERATIONS STAFF OFFICER [facility] [address] CARDIOLOGY [place], [place] [address] Social History Tobacco Use Types [...] Vitaliy Nobles MD [facility] CARDIOLOGY [place], [place] [address] (Wo rk) 06/10/2022 Office Visit Dermatology Laura Scherer MD [facility] DR TEJA GR-DERMAT OLOGY [place], [place] [address] (Wo rk) documented as of [...] sensation documented in this encounter Care Teams Process Project Engineer Relationship Specialty Start Date End Date Lovely Vicente MD PCP - General 04/16/[address] [place] [address] documented as of this encounter
--- OUTSIDE RECORDS SUMMARY | 2022-03-04 14:54 | XMS_ITS | Encounter Summary ---
:1945 [place] [address] Care Team Providers Name Role Phone Lovely Vicente MD Primary Care Provider Encounter Details Date Type Department Care Team Description 08/04/2017 Notes Only Pain Management at Barbra Bruno, [place] [address] [place] [address] [phone] (Wo rk) Social History Tobacco Use Types [...] bid) at this time. Barbra Soares, MSN, COAL CUTTER-BC, [facility] documented in this encounter Plan of Treatment Upcoming Encounters Date Type Specialty Care Team Description 03/26/2022 Office Visit Cardiology Vitaliy Nobles MD [facility] ER DR TADEO [place], [place] [address] (Wo rk) 06/10/2022 Office Visit Dermatology Laura Scherer MD [facility] DR [address]-DERMAT [place], [place] [address] (Wo rk) documented as of this encounter Visit Diagnoses Not on filedocumented in this encounter Care Teams Trial Court Justice Relationship Specialty Start Date End Date Lovely Vicente MD PCP - General 04/16/[address] [place] [address] documented as of this encounter
--- OUTSIDE RECORDS SUMMARY | 2022-03-04 14:54 | XMS_ITS | Encounter Summary ---
:1945 [place] [address] Care Team Providers Name Role Phone Lovely Vicente MD Primary Care Provider Reason for Visit Auth/Cert Specialty Diagnoses / Procedures Referred By Contact Refer red To Contact Diagnoses Critical lower limb ischemia CELLULITIS RT FOOT Procedures EMERGENCY Referral ID Status Reason Start Date Expiration Date Visits Requ ested Visits Authorized [id number] 1 1 Encounter Details Date Type Department Care Team Description 08/09/2017 Anesthesia Event Main Operating Room Daniele Lizama MD [facility] [place] [address] [facility] Rob Jones MD [facility] [place] [address] [place] [address] Anesthesia Record Procedure Summary Procedure Name [...] Knowles, Dory arm), right; VAMSI Rios, RN aoff-cvs-pvrgos catheter system; 20 gauge; 08/16/17; 1047 PIV 07/29/17; 1413; median 07/29/17 1413 by 08/16/17 1047 by cubital vein (antecubital Magdalene Hickey Williams, Dory fossa), left; VAMSI Wyatt, RN qsyl-bhv-pmjzop catheter system; 20 gauge; 08/16/17; 1047 PIV 08/06/17; 1742; cephalic 08/06/17 1742 by 0920 by vein (lateral side of Taylor Laureano Danah y, Caitlyn C, arm), right; VAMSI BONNER lqqk-cqd-tfemki catheter system; 22 gauge, 1 in length; Eliseo LAUREANO RN VAS; distraction, intradermal injection, tolerated well, appears comfortable; 0; 08/16/17; 0920 Wound 08/07/17; 1335; knee; 08/07/17 1335 by 08/16/17 1047 by laceration; wound occured Barbara 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 OR 14 / 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 Nerve [...] SETUP performed by Manny Mcknight MD at [facility] MAIN OR ??? PRO CABG, ARTERIAL, SINGLE N/A 07/07/2017 @CABG, USING ARTERIAL GRAFT;SINGLE ARTERIAL GRAFT (WRVU 33.75) performed by Yuan Retana MD at [facility] MAIN OR ??? PRO CABG, ARTERY-VEIN, TWO N/A 07/07/2017 @CABG, TWO VENOUS GRAFTS & ARTERIAL GRAFT (WRVU 7.93) performed by Yuan Retana MD at [facility] MAIN OR ??? PRO COLONOSCOPY, REMV LESN, SNARE 01/16/2014 COLONOSCOPY, POLYPECTOMY, REMOVAL LESION BY SNARE performed by Nohemi Jaimes MD at [facility] ENDOSCOPY ??? PRO ENDOSCOPY W/VIDEO-ASST VEIN HARVEST, CABG Right 07/07/2017 ENDOSCOPIC HARVEST VEIN(S) FOR CABG (WRVU 0.31) performed by Yuan Retana MD at [facility] MAIN OR ??? PRO THYROIDECTOMY 03/28/2013 THYROIDECTOMY, TOTAL OR COMPLETE performed by Manny Mcknight MD at [facility] MAIN OR Social History Substance Use Topics [...] adequate IV access. Brody Santillan MD PGY-2, R&D Engineer Pager #[phone] Anesthesiology Staff (Dewhirst): Pre-op summary note as [...] Vitaliy Nobles MD [facility] [address] [place], [place] [address] (Wo rk) 06/10/2022 Office Visit Dermatology Laura Scherer MD [facility] DR [address]MAT OLOGY [place], [place] [address] (Wo rk) documented as of [...] Length: 10 cm Gauge: 21 Needle Type: L-cusin-vyvlx Medication injection made in crementally with aspirations. [...] Procedure) documented in this encounter Care Teams Business Database Analyst Relationship Specialty Start Date End Date Lovely Vicente MD PCP - General 04/16/[address] [place] [address] documented as of this encounter
--- OUTSIDE RECORDS SUMMARY | 2022-03-04 14:54 | XMS_ITS | Encounter Summary ---
:1945 Author Organization [facility] [place] [address] Care Team Providers Name Role Phone Lovely Vicente MD Primary Care Provider Reason for Visit Auth/Cert Specialty Diagnoses / Procedures Referred By Contact Refer red To Contact Diagnoses Critical lower limb ischemia CELLULITIS RT FOOT Procedures EMERGENCY Referral ID Status Reason Start Date Expiration Date Visits Requ ested Visits Authorized [id number] 1 1 Encounter Details Date Type Department Care Team Description 08/04/2017 Office Visit Cardiology [place] [facility] Danette Maxwell Incisional pain; [facility] A, JUICE WEIGHER Ischemic cardiomyopathy; [facility] ASCVD (arteriosclerotic card iovascular disease); [place], [place] Systolic heart failure, unspecified hear t failure chronicity [id number] CARDIOLOGY [phone] [place], [place] [address] Social History Tobacco Use Types [...] in this encounter Progress Notes Danette Maxwell, JUICE WEIGHER - 08/04/2017 3:00 PM EST ID and [...] and 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 [...] MD [facility] CARDIOLOGY [place], [place] [address] (Wo rk) 06/10/2022 Office Visit Dermatology Laura Scherer MD [facility] [address] [place], [place] [address] (Wo rk) documented as [...] EXAMINATION: XR CHEST PA AND LATERAL (GE [employer]) CLINICAL HISTORY: Checking sternal stabi lity/assess wires [...] sensation documented in this encounter Care Teams Member Services Coordinator Relationship Specialty Start Date End Date Lovely Vicente MD PCP - General 04/16/[address] [place] [address] documented as of this encounter
--- OUTSIDE RECORDS SUMMARY | 2022-03-04 14:54 | XMS_ITS | Encounter Summary ---
:1945 Author Organization [place] [address] Care Team Providers Name Role Phone Lovely Vicente MD Primary Care Provider Reason for Visit Auth/Cert Specialty Diagnoses / Procedures Referred By Contact Refer red To Contact Diagnoses Critical lower limb ischemia CELLULITIS RT FOOT Procedures EMERGENCY Referral ID Status Reason Start Date Expiration Date Visits Requ ested Visits Authorized [id number] 1 1 Encounter Details Date Type Department Care Team Description 08/04/2017 Laboratory Appointment Lab [address] [place] [phone] Social History Tobacco Use Types Packs/Day [...] MD [facility] ER [address] [place], [place] [address] (Wo rk) 06/10/2022 Office Visit Dermatology Laura Scherer MD [facility] [address], [place] [address] (Wo rk) documented as of this encounter Visit Diagnoses Not on filedocumented in this encounter Care Teams Spring Upholsterer Relationship Specialty Start Date End Date Lovely Vicente MD PCP - General 04/16/[address] [place] [address] documented as of this encounter
--- OUTSIDE RECORDS SUMMARY | 2022-03-04 14:54 | XMS_ITS | Encounter Summary ---
:1945 Author Organization [facility] [place] [address] Care Team Providers Name Role Phone Lovely Vicente MD Primary Care Provider Reason for Visit Auth/Cert Specialty Diagnoses / Procedures Referred By Contact Refer red To Contact Diagnoses Critical lower limb ischemia CELLULITIS RT FOOT Procedures EMERGENCY Referral ID Status Reason Start Date Expiration Date Visits Requ ested Visits Authorized [id number] 1 1 Encounter Details Date Type Department Care Team Description 08/09/2017 Surgery Main Operating Room Yonathan Smith AM PUTATION, Mary Hitchcock MD TRANSMETATARSAL ([facility] 12.71) [facility] DR Siddiqui [place] [address] [place] [address] [phone] Social History Tobacco Use Types Packs/Day Years [...] addition to 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 Patient [...] Dorsalis Pedis (Ankle) Artery ?132 ? 0.94 ??Bowman-Biphasic ? Posterior Tibial (Ankle) Artery ??154 ? 1.10 ??Bowman-Biphasic ? Fourth Toe ? 67 ?0.48 ?? [...] the foot. Discharge Conditions/Prognosis: Good Discharge to: [facility] Rehab Discharge Medications: Your [...] For any problems or questions please call [phone] ZELDA Smith, elementary school director Nurse Clinician For issues on weeknights after 5pm and weekends please call [phone] and ask for the Vascular Fellow hotel operation manager. General Instructions None Future Appointments and Orders Future Appointments Provider Department Dept Phone 08/26/2017 4:00 PM Aurelia Rivera PA Vascular Surgery at [place] [phone] 09/07/2017 3:00 PM LAB, THREE L Lab 3L [facility] [phone] 09/07/2017 4:00 PM Luz Prescott MD Endocrinology at [place] [phone] 09/09/2017 8:00 AM Barbra Soares APRN Pain Management at [place] [phone] Please bring a list of your current [...] For any problems or questions please call [phone] ZELDA mSith, elementary school director Nurse Clinician For issues on weeknights after 5pm and weekends please call [phone] and ask for the Vascular Fellow hotel operation manager. documented in this encounter Medications at [...] Destination: [facility] ([facility]) [address] [id number] Transportation: with (at bedside) Time of Discharge: by 12 noon Level of Care: swing Patient Aware: yes Family Notified: yes Md to call report to: Yissel Quintero SERVICE AND REPAIR SUPERVISOR already called RN to call report to: [phone] Shirin Wolf Office of Care Management Pager [phone] Shirin Wolf RN - 08/16/2017 10:50 AM EST [facility] has offered pt swing bed. Pt and accept bed. will transport via car. SERVICE AND REPAIR SUPERVISOR Yissel Quintero aware; d/c paperwork will be completed by 12 noon. [facility] requests pt arrival by 1400 today; SERVICE AND REPAIR SUPERVISOR, RN, and family aware. SERVICE AND REPAIR SUPERVISOR called [facility] and was told that they prefer pt to arrive with wound vac dressing applied but clamped. SERVICE AND REPAIR SUPERVISOR applied new wound vac dressing. RN has [facility] number to call report. PASSR completed; SERVICE AND REPAIR SUPERVISOR paged to request provider signature in highlighted space. Indigo from [facility] notified via email that home wound vac now cancelled; [facility] has picked up from room and order cancelled. Packet started and provided to community facilitator. Medicare important message explained to patient, patient signed. Copy provided to patient and signature page to OCM for inclusion in pt EMR. L Radha Powers Yoselin - 08/16/2017 10:34 AM EST Office of Care Management/Lumber Yard Worker Patient Name: Gregory Hoang : 1945 Patient has been offered a swing bed at [facility]. The patient will be transported by private transportation. No MD to MD report necessary Please call Nursing Report to [phone], ask for psychological examiner. Info to accompany patient: Narcotic Prescriptions Copies of Medication Administration Records and IV sheets for past 10 days. Plan: Lumber Yard Worker will be available to the patient and Document Preparer Microfilming-RN and/or Water Project Manager for further assistance. Patient will be discharged to: [address] [id number] Radha Powers, Lumber Yard Worker Mira Truong, VAMSI - 08/15/2017 10:05 PM EST [address] Flores to ask if he wanted to hold metoprolol dose. BP 95/58. OK to hold this dose Courtney Brito - 08/15/2017 3:26 PM EST Office of Care Management(OCM)/Lumber Yard Worker(RS)/ D/C Planning re : Patient is medically ready for d/c today. RS has been in contact with [facility] to see if they could offer a bed. [facility] is still reviewing the case and need their MD to review chart prior to accepting or declining. OCM team needs to check in with [facility] tomorrow to check on status. 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 Vac in place. Rehab referrals ongoing. Can ambulate in hallway. Change VAC at bedside today. Naty Colindres RN - 08/14/2017 1:33 PM EST Patient Name: Gregory Hoang Patient Age: 72 y.o. Birthdate: 1945 Admit date: 08/06/2017 Attending Physician: Yonathan Smith MD We want him to go to a place for intensive therapy and not at a fpc where he will be just sitting there and not getting any therapy. . Contacted by direct care RN, who said that patient and would like information about patient's referral to: [facility] PHONE: [phone] FAX: [phone] CM spoke with RS who said that [...] rehab. Await recommendations from PT. Covering pager #[phone]. 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 Pulmonary Physical Therapist Kaitlin Saha, RN Pager #[phone] Payam Rosales - 08/13/2017 2:37 PM EST [facility] Encounter Note Patient Name: Gregory Hoang : [id number] MR#: [id number] Admit Date: 08/06/2017 1:41 PM Hospital Day 7 days Narrative: Visited to introduce and assess acceptance of [facility] services. Pt was awake, alert, oriented and in chair and family was there. Assessment:Patient coping positively with stresses of illness/hospitalization at this time. Pt says that he is hoping to get better and his family was there. Pt says that he has family care and supportand taking one day at time. Intervention and Outcome: Provided emotional support and encouraging presence. 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 A letter describing our affiliations was reviewed with them and theywere educated about their right to choose where referrals are placed. Patient requests referral to [facility]. PHONE: [phone] FAX: [phone]. And Home NPWT (Negative Pressure Wound Therapy) aka wound vac device made available to pt. Serial # confirmed. Reviewed [facility] Proof of Delivery/Assignment of Benefits Statement(POD/AOB) Form w patient or authorized agent signing on behalf of patient. Copy of POD/AOB provided to pt and other copy faxed to [employer] @ fax# [phone] Expected date of discharge: 08/12/2017. 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 Address: [address] [place] [address] [place] [address] (home) Mobile: Telephone Information: Referring Provider: No [...] at [facility] ENDOSCOPY ??? PRO ENDOSCOPY W/VIDEO-ASST VEIN HARVEST, CABG Right 07/07/2017 ENDOSCOPIC HARVEST VEIN(S) FOR CABG (WRVU 0.31) performed by Yuan Retana MD at [facility] MAIN OR ??? 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 Heparin gtt continues to run. [...] : 1945 AGE 72 y.o. Address: [address] [place] [address] [place] [address] (home) Mobile: Telephone Information: Referring Provider: No [...] 7.93) performed by Yuan Retana MD at [facility] OR ??? PRO COLONOSCOPY, REMV LESN, SNARE 01/16/2014 COLONOSCOPY, POLYPECTOMY, REMOVAL LESION BY SNARE performed by Nohemi Jaimes MD at [facility] ENDOSCOPY ??? PRO ENDOSCOPY W/VIDEO-ASST VEIN HARVEST, CABG Right 07/07/2017 ENDOSCOPIC HARVEST VEIN(S) FOR CABG (WRVU 0.31) performed by Yuan Retana MD at [facility] MAIN OR ??? 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 Vascular resident hotel operation manager and will forward result to the team prior to rounds. 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 Patient [...] at [facility] ENDOSCOPY ??? PRO ENDOSCOPY W/VIDEO-ASST VEIN HARVEST, CABG Right 07/07/2017 ENDOSCOPIC HARVEST VEIN(S) FOR CABG (WRVU 0.31) performed by Yuan Retana MD at [facility] MAIN OR ??? PRO THYROIDECTOMY 03/28/2013 THYROIDECTOMY, TOTAL OR COMPLETE performed by Manny Mcknight MD at [facility] MAIN OR Functional Status/Social Hx: [...] left blue toes with CTA showing R ASSISTANT REAL ESTATE MANAGER pseudoaneurysm (now thrombosed) and occluded ATs bilaterally. [...] 2.5x80 5. Completion RLE angiogram 6. L ASSISTANT REAL ESTATE MANAGER angiogram 7. 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 - L ASSISTANT REAL ESTATE MANAGER angriogram demonstrated: High femoral bifurcation over the proximal half of the femoral head. L ASSISTANT REAL ESTATE MANAGER access in the distal L ASSISTANT REAL ESTATE MANAGER. - Closure device: Mynx Technical Procedure: The [...] for a 45cm 5F Destination. V18 and [place] and QuickCross catheters were used to select [...] 5F. A stationed picture of the L ASSISTANT REAL ESTATE MANAGER was performed as the patient was noted to have a very high bifurcation. Access appeared in the distal R ASSISTANT REAL ESTATE MANAGER. Closure and sheath removal was performed with [...] PM EST 1440 report called to 5 patrick nurse Tessa RN documented in this encounter [...] with pt and pt's spouse. Discharge to [facility]. Goal: Individualization & Mutuality [...] sit/sit to supine -- Bed Mobility Goal, Madison Level independent -- Bed Mobility Goal, Date [...] days -- Transfer Training Goal, Activity Type vtg-hn-gkjac/pmzrw-vh-yck -- Transfer Train Goal, Madison Level conditional independence -- Transfer Train Goal, [...] call cabello within reach, Hourly rounding by RN/CONTAMINATION CONSULTANT. Bed alarm / Chair alarm. Patient-specific fall [...] Smith MD - 08/15/2017 6:28 PM EST [facility] Operative Note Patient Name: Gregory Hoang : [id number] MR#: [id number] Case Date: 08/09/2017 Surgeon: Surgeon(s) and Role: [...] 2.5x80 5. Completion RLE angiogram 6. L ASSISTANT REAL ESTATE MANAGER angiogram 7. Mynx closure Precautions/Restrictions: fall, sternal [...] feet/ bed -> bathroom). Anticipated Discharge Disposition: fdc facility, other (see comments) (or swing bed) Pager: [phone] BASSAM ELIAS, PT 08/14/2017 Inpatient Physical Therapy [...] to Achieve by discharge Gait Training Goal, Madison Level conditional independence;set up required Gait Training [...] these facilities over the weekend except for [facility]. CM spoke with [facility] CM Drea Sandhu, VAMSI who said that they do not anticipate any beds over the weekend. Reviewed with patient/ that they need to be aware that patient will need to take the first bed offered at the facilities that they make referrals to. Their choices are: 1- [facility] PHONE: [phone] FAX: [phone] 2- [facility] ([facility]) [address] [place] [address] 3- [facility])([facility]) [address] [place] [address] I have discussed Medicare/Private Insurance [...] RS/CM on Wednesday to follow-up. Covering pager #[phone] for today. Plan of Care - Henrique [...] with additional findings of pseudoaneurysm on R ASSISTANT REAL 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 Was [...] an outpatient once discharged. Have patient call [phone] to set up an appointment. Follow-up: Dermatology will sign-off for now. Please do not hesitate to contact us if you have any questions orconcerns. Impression and Recommendations discussed with primary team on 08/13/2017. Karo Henderson MD Resident in Dermatology Section of Dermatology, Department of Surgery [facility] Pager [phone] Patient seen and evaluated with staff Distribution Lineman: Halima Cordero MD Section of Dermatology [facility] Level of Resident Supervision: Direct [...] Outcome: Ongoing (Interventions Implemented as Appropriate) 08/12/17 7556 Coping/Psychosocial Plan Of Care Reviewed With patient;spouse [...] 2.5x80 5. Completion RLE angiogram 6. L ASSISTANT REAL ESTATE MANAGER angiogram 7. Mynx closure Active Non-Hospital Problems [...] home with home health ([facility] PT[facility]) Pager: [phone] YASIR TELLO OT 08/12/2017 Occupational Therapy Rehabilitation [...] 2.5x80 5. Completion RLE angiogram 6. L ASSISTANT REAL ESTATE MANAGER angiogram 7. Mynx closure Past Medical History: [...] with 24/7 assistance and maximal services) Pager: [phone] NICHOLAS MORA, PT 08/12/2017 Physical Therapy Rehabilitation [...] sit/sit to supine -- Bed Mobility Goal, Madison Level independent -- Bed Mobility Goal, Outcome Achieved -- goal ongoing Goal: Gait Training Goal Stand Alone Therapy Goal Outcome: Ongoing (Interventions Implemented as Appropriate) 08/11/17 1310 08/12/17 1510 Gait Training Goal Gait Training Goal, Date Established 08/11/17 -- Gait Training Goal, Time to Achieve 5 - 7 days -- Gait Training Goal, Madison Level conditional independence -- Gait Training Goal, [...] days -- Transfer Training Goal, Activity Type vqc-rb-goqkd/mbwvt-uk-iho -- Transfer Train Goal, Madison Level conditional independence -- Transfer Training Goal, [...] Smith MD - 08/11/2017 2:52 PM EST [facility] Operative Note Patient Name: Gregory Hoang : [id number] MR#: [id number] Case Date: 08/11/2017 Surgeon: Surgeon(s) and Role: [...] 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 Completion RLE angiogram 6. L ASSISTANT REAL ESTATE MANAGER angiogram 7. Mynx closure He is very [...] Anticipated Discharge Disposition: inpatient rehabilitation facility Pager: [phone] LAWRENCE GONZALEZ, PT 08/11/2017 Physical Therapy Rehabilitation [...] to sit/sit to supine Bed Mobility Goal, Madison Level independent Goal: Gait Training Goal Stand Alone Therapy Goal Outcome: Ongoing (Interventions Implemented as Appropriate) 08/11/17 1310 Gait Training Goal Gait Training Goal, Date Established 08/11/17 Gait Training Goal, Time to Achieve 5 - 7 days Gait Training Goal, Madison Level conditional independence Gait Training Goal, Assist [...] 7 days Transfer Training Goal, Activity Type vid-sa-gghuk/dafys-xu-nps Transfer Train Goal, Madison Level conditional independence Plan of David DelloAnnetta [...] call cabello within reach, Hourly rounding by RN/CONTAMINATION CONSULTANT. Bed alarm / Chair alarm. ? Patient-specific [...] 04/05/2013 Hospitalizations Within the Past 30 Days: [facility] 07/20/2017 Anticipated Length Of Stay (If known): Expected Length of Hospitalization: 5-7 days2-3 days Current Decision-Making Capacity: Alert and oriented x 4 Advance Care Planning: on file Kisha Hoang [facility] [phone] Current Coping/Education/Information Needs: pt and spouse state [...] Health/Prescription Coverage: Primary Insurance: MEDICARE Secondary Insurance: [employer] [place] Prescription Coverage: See above Preferred Pharmacy: [id number] Other: N/A Primary Care Provider: Lovely Vicente MD [phone] Patient/Caregiver Goals of Treatment: Patient plans to return home when medically ready Potential Needs for Transition of Care: Rehab/SNF: N/A Home Health: [facility]. DME: pt has a cane and [...] of care planning. Kaitlin Saha RN Pager: [phone] Plan of Care - Melba Jaramillo RN [...] Overview Goal: Plan of Care Review 08/08/17 9274 Coping/Psychosocial Plan Of Care Reviewed With patient [...] call cabello within reach, Hourly rounding by RN/CONTAMINATION CONSULTANT. Bed alarm / Chair alarm. Patient-specific fall prevention interventions for sensory deficits provided, if applicable: [X] Yes CPG GOAL OUTCOME EVALUATION: Goal: Fall Prevention-Safe Patient Handling Outcome: Ongoing (Interventions Implemented as Appropriate) 08/06/17 1700 08/06/17199908/07/17 0864 Positioning Body Position -- up in chair [...] at bedside and MD TEAM Carrying pager [phone] contacted (via Radio page) and notified of [...] [facility] ER [address] [place], [place] [address] (Wo rk) 06/10/2022 Office Visit Dermatology Laura Scherer MD [facility] [address] [place], [place] [address] (Wo rk) documented as of [...] section. TYPE AND SCREEN Routine 08/09/2017 1:10 ([facility]SHANDA) AM EST BASIC METABOLIC PANEL Routine 08/09/2017 [...] 160 65 - 199 [facility] mg/dL [facility] LABOR[facility]ORY Comment: Supplemental ranges: <140 mg/dL before meals <180 mg/dL all other times of the day Specimen Anatomical Collection Method Collection Time Receive d Time (Source) Location / / Volume Laterality Blood specimen 08/16/2017 7:28 AM 018 7:28 (specimen) EST AM EST Yonathan Smith MD POINT OF CARE TEST ORDERABLE S Performing Organization Address City/State/ZIP Code Ph[place] [address] (ABNORMAL) Differential, Automated (08/16/2017 5:08 AM EST) Patholo gist Method Time Signature Neutrophils % 73.9 % [facility] LABORATORY Neutr Abs (ANC) 5.37 1.70 - [facility] 6.10 [facility] x10(3)/[facility] LABORATORY Lymphocytes % 10.1 % [facility] LABORATORY Lymphocytes Abs 0.7 (L) 0.9 - 3.2 [facility] x10(3)/[facility] LABORATORY Monocytes % 10.1 % [facility] LABORATORY Monocyte Abs 0.7 0.3 - 0.9 [facility] x10(3)/[facility] LABORATORY Eosinophils % 5.1 % [facility] LABORATORY Eosinophils Abs 0.4 0.0 - 0.4 [facility] x10(3)/[facility] LABORATORY Basophils % 0.4 % [facility] LABORATORY Basophils Abs 0.0 0.0 - 0.1 [facility] x10(3)/[facility] LABORATORY Immature Gran % 0.40 [...] Melisa Gran Abs 0.03 0.00 - 0.04 x10(3)/[facility] MAR Y [facility] LABORATORY Specimen Anatomical Collection Method Collection Time Receive d Time (Source) Location / / Volume Laterality Blood specimen 08/16/2017 5:08 AM 018 5:20 (specimen) EST AM EST Resulting Agency Comment Spec In Lab Yonathan Smith MD HEMATOLOGY ORDERABLES Performing Organization Address City/State/ZIP [place] [address] (ABNORMAL) Hemogram (08/16/2017 5:08 AM EST) Analysis Performed At Patho logist Time Signature WBC 7.3 4.0 - 9.5 [facility] x10(3)/[facility] LABORATORY RBC 3.36 (L) 4.58 - [facility] 5.54 [facility] x10(6)/[facility] LABORATORY Hemoglobin 9.7 (L) 13.7 - [facility] 16.5 gm/dL [facility] LABOR[facility]ORY Hematocrit 30.3 (L) 40.5 - [facility] 48.5 % [facility] LABORATORY MCV 90.2 82.9 - [facility] LABORATORY MCH 28.9 27.5 - [facility] 32.1 pg [facility] LABORATORY MCHC 32.0 32.0 - [facility] DAVIS 35.7 gm/dL [facility]ORY Platelets 282 145 - 357 [facility] x10(3)/[facility] LABORATORY RDWSD 53.9 (H) 36.0 - [facility] LAB[facility]ATORY RDWCV 16.5 (H) 11.4 - [facility]BAR[facility] RYAN 13.8 % [facility] LABORATORY MPV 9.0 7.6 - 12.9 [facility] LABORATORY nRBC % Auto 0.0 % [facility] LABORATORY nRBC Abs Auto 0.000 0.000 - BARBARA ZHAORYAN 0.000 [facility] x10(3)/[facility] LABORATORY Specimen Anatomical Collection Method Collection Time Receive d Time (Source) Location / / Volume Laterality Blood specimen 08/16/2017 5:08 AM 018 5:20 (specimen) EST AM EST Resulting Agency Comment Spec In Lab Yonathan Smith MD HEMATOLOGY ORDERABLES Performing Organization Address City/State/ZIP [place] [address] (ABNORMAL) Basic Metabolic Panel (non-fasting) (08/16/2017 5:08 AM EST) P athologist Signature Glucose Lvl 141 65 - 199 [facility] mg/dL [facility] Comment: Diabetes: >=200 mg/dL plus symp toms BUN 29 (H) 10 - 20 mg/dL [facility] LABORATORY Creatinine 1.25 0.80 - 1.50 mg/dL [facility] LABORATORY Sodium 140 135 - 145 mmol/L [facility] LABORATORY Potassium 4.5 3.5 - 5.0 mmol/L [facility] LAB[facility] Comment: Please note: ??Patients with WBC >100,00 0 may have falsely elevated Potassium levels. ??For accurate Potassium quantif ication in these patients send serum separator tube (gold top) for subsequent determinations. ??Contact the Clinical Chemistry Laboratory if there are any qu estions. Chloride 99 98 - 107 mmol/L [facility] CO2 28 22 - 31 mmol/L [facility] Anion Gap 13 5 - 15 mmol/L [facility] Calcium 8.7 8.5 - 10.5 mg/dL [facility] Estimated GFR 57 (L) >=60 [facility] Comment: The reported eGFR should be multiplied b y 1.2 for patients. The MDRD is not an appropriate measure o f renal function for patients with body mass extremes or in patients with acute kidney failure. http://[employer]/DHnkdep http://[employer]/DHMCnkf Specimen Anatomical Collection Method Collection Time Receive d Time (Source) Location / / Volume Laterality Blood specimen 08/16/2017 5:08 AM 018 5:20 (specimen) EST AM EST Resulting Agency Comment Spec In Lab Yonathan Smith MD CHEMISTRY ORDERABLES Performing Organization Address City/State/[facility] [place] [address] (ABNORMAL) Prothrombin Time (08/16/2017 5:08 AM EST) P athologist Signature PT 25.2 (H) 11.8 - 14.0 [facility] LABORATORY INR 2.3 (H) 0.9 - 1.1 [place] Address City/State/ZIP Code Phon e Number [address] POCT Glucose (08/16/2017 4:09 AM EST) athologist Signature POC Glucose 147 65 - 199 [place] mg/dL [facility] Comment: Supplemental ranges: <140 mg/dL before meals <180 mg/dL all other times of the day Specimen Anatomical Collection Method Collection Time Receive d Time (Source) Location / / Volume Laterality Blood specimen 08/16/2017 4:09 AM 018 4:09 (specimen) EST AM EST Yonathan Smith MD POINT OF CARE TEST ORDERABLE S Performing Organization Address City/[facility]/ZIP Code Phon e Number [address] POCT Glucose (08/15/2017 11:56 PM EST) athologist Signature POC Glucose 176 65 - 199 [place] ZHAORYAN mg/dL [facility] Comment: Supplemental ranges: <140 mg/dL before meals <180 mg/dL all other times of the day Specimen Anatomical Collection Method Collection Time Receive d Time (Source) Location / / Volume Laterality Blood specimen 08/15/2017 11:56 8 (specimen) PM EST 11:56 PM EST Yonathan Smith MD POINT OF CARE TEST ORDERABLE S Performing Organization Address City/State/ZIP Code Phon e Number [place], [place] [id number] [place] [address] POCT Glucose (08/15/2017 8:05 PM EST) athologist Signature POC Glucose 136 65 - 199 [place] mg/dL [facility] Comment: Supplemental ranges: <140 mg/dL before meals <180 mg/dL all other times of the day Specimen Anatomical Collection Method Collection Time Receive d Time (Source) Location / / Volume Laterality Blood specimen 08/15/2017 8:05 PM 018 8:05 (specimen) EST PM EST Yonathan Smith MD POINT OF CARE TEST ORDERABLE S Performing Organization Address City/State/ZIP [place] [address] (ABNORMAL) POCT Glucose (08/15/2017 4:50 PM EST) athologist Signature POC Glucose 232 (H) 65 - 199 [place] RY[place] mg/dL [facility] Comment: Supplemental ranges: <140 mg/dL before meals <180 mg/dL all other times of the day Specimen Anatomical Collection Method Collection Time Receive d Time (Source) Location / / Volume Laterality Blood specimen 08/15/2017 4:50 PM 018 4:50 (specimen) EST PM EST Yonathan Smith MD POINT OF CARE TEST ORDERABLE S Performing Organization Address City/State/ZIP Code Phon e Number [address] POCT Glucose (08/15/2017 12:04 PM EST) athologist Signature POC Glucose 135 65 - 199 [facility] Comment: Supplemental ranges: <140 mg/dL before meals <180 mg/dL all other times of the day Specimen Anatomical Collection Method Collection Time Receive d Time (Source) Location / / Volume Laterality Blood specimen 08/15/2017 12:04 8 (specimen) PM EST 12:04 PM EST Yonathan Smith MD POINT OF CARE TEST ORDERABLE S Performing Organization Address City/State/[place] [address] POCT Glucose (08/15/2017 7:36 AM EST) athologist Signature POC Glucose 124 65 - 199 BARBAR[place] ZHAORYAN mg/dL [facility] Comment: Supplemental ranges: <140 mg/dL before meals <180 mg/dL all other times of the day Specimen Anatomical Collection Method Collection Time Receive d Time (Source) Location / / Volume Laterality Blood specimen 08/15/2017 7:36 AM 018 7:36 (specimen) EST AM EST Yonathan Smith MD POINT OF CARE TEST ORDERABLE S Performing Organization Address City/State/[place] [address] (ABNORMAL) Differential, Automated (08/15/2017 6:22 AM EST) Patholo gist Method Time Signature Neutrophils % 76.1 % [facility] Neutr Abs (ANC) 6.62 (H) 1.70 - [facility] 6.10 [facility] x10(3)/[facility] LABORATORY Lymphocytes % 9.3 % [facility] Lymphocytes Abs 0.8 (L) 0.9 - 3.2 [facility] x10(3)/[facility] LABORATORY Monocytes % 9.4 % [facility] Monocyte Abs 0.8 0.3 - 0.9 [facility] x10(3)/[facility] LABORATORY Eosinophils % 4.0 % [facility] Eosinophils Abs 0.4 0.0 - 0.4 [facility] x10(3)/[facility] LABORATORY Basophils % 0.6 % [facility] Basophils Abs 0.0 0.0 - 0.1 [facility] x10(3)/[facility] LABORATORY Immature Gran % 0.60 % [...] Address City/State/ZIP Code Phon e Number [address] (ABNORMAL) Hemogram (08/15/2017 6:22 AM EST) Analysis Performed At Patho logist Time Signature WBC 8.7 4.0 - 9.5 [facility] x10(3)/[facility] LABORATORY RBC 3.21 (L) 4.58 - [place] [facility] 5.54 [facility] x10(6)/[facility] LABORATORY Hemoglobin 9.1 (L) 13.7 - [facility] 16.5 gm/dL [facility] LAB[facility]ORY Hematocrit 29.0 (L) 40.5 - [place] RYAN 48.5 % [facility] LABORATORY MCV 90.3 82.9 - [facility] LAB[facility] MCH 28.3 27.5 - [facility] 32.1 pg [facility] LABORATORY MCHC 31.4 (L) 32.0 - [place] RYAN 35.7 gm/dL [facility] LABORATORY Platelets 254 145 - 357 [facility] x10(3)/[facility] LABORATORY RDWSD 53.9 (H) 36.0 - [facility] LABORATORY RDWCV 16.3 (H) 11.4 - [facility] 13.8 % [facility] LABORATORY MPV 8.8 7.6 - 12.9 [facility] LABORATORY nRBC % Auto 0.0 % [facility] LABORATORY nRBC Abs Auto 0.000 0.000 - [facility] 0.000 [facility] x10(3)/[facility] LABORATORY Specimen Anatomical Collection Method Collection Time Receive d Time (Source) Location / / Volume Laterality Blood specimen 08/15/2017 6:22 AM 018 6:33 (specimen) EST AM EST Resulting Agency Comment Spec In Lab Yonathan Smith MD HEMATOLOGY ORDERABLES Performing Organization Address City/State/ZIP [place] [address] (ABNORMAL) Basic Metabolic Panel (non-fasting) (08/15/2017 6:22 AM EST) P athologist Signature Glucose Lvl 118 65 - 199 [facility] mg/dL [facility]ORY Comment: Diabetes: >=200 mg/dL plus symp toms BUN 27 (H) 10 - 20 mg/dL [facility] Creatinine 1.12 0.80 - 1.50 mg/dL [facility] Sodium 138 135 - 145 mmol/L [facility] CO2 29 22 - 31 mmol/L [facility] Anion Gap 11 5 - 15 mmol/L [facility] Calcium 8.8 8.5 - 10.5 mg/dL [facility] Estimated GFR >60 >=60 [facility] Comment: The reported eGFR should be multiplied b y 1.2 for patients. The MDRD is not an appropriate measure o f renal function for patients with body mass extremes or in patients with acute kidney failure. http://[employer]/DHnkdep http://[employer]/DHMCnkf Specimen Anatomical Collection Method Collection Time Receive d Time (Source) Location / / Volume Laterality Blood specimen 08/15/2017 6:22 AM 018 6:33 (specimen) EST AM EST Resulting Agency Comment Spec In Lab Yonathan Smith MD CHEMISTRY ORDERABLES Performing Organization Address City/State/ZIP [place] [address] (ABNORMAL) Prothrombin Time (08/15/2017 6:22 AM EST) athologist Signature PT 21.9 (H) 11.8 - 14.0 [facility] LABORATORY INR 1.9 (H) 0.9 - 1.1 [place] [...] Address City/State/ZIP Code Phon e Number [address] POCT Glucose (08/15/2017 4:33 AM EST) athologist Signature POC Glucose 164 65 - 199 [place] mg/dL [facility] Comment: Supplemental ranges: <140 mg/dL before meals <180 mg/dL all other times of the day Specimen Anatomical Collection Method Collection Time Receive d Time (Source) Location / / Volume Laterality Blood specimen 08/15/2017 4:33 AM 018 4:33 (specimen) EST AM EST Yonathan Smith MD POINT OF CARE TEST ORDERABLE S Performing Organization Address City/[facility]/ZIP Code Phon e Number [address] POCT Glucose (08/15/2017 12:12 AM EST) athologist Signature POC Glucose 89 65 - 199 [place] RY[place] mg/dL [facility]ORY Comment: Supplemental ranges: <140 mg/dL before meals <180 mg/dL all other times of the day Specimen Anatomical Collection Method Collection Time Receive d Time (Source) Location / / Volume Laterality Blood specimen 08/15/2017 12:12 8 (specimen) AM EST 12:12 AM EST Yonathan Smith MD POINT OF CARE TEST ORDERABLE S Performing Organization Address City/[facility]/ZIP Code Phon e Number [address] (ABNORMAL) POCT Glucose (08/14/2017 8:07 PM EST) athologist Signature POC Glucose 204 (H) 65 - 199 [place] RYAN mg/dL [facility]ORY Comment: Supplemental ranges: <140 mg/dL before meals <180 mg/dL all other times of the day Specimen Anatomical Collection Method Collection Time Receive d Time (Source) Location / / Volume Laterality Blood specimen 08/14/2017 8:07 PM 018 8:07 (specimen) EST PM EST Yonathan Smith MD POINT OF CARE TEST ORDERABLE S Performing Organization Address City/State/ZIP Code Phon e Number [address] POCT Glucose (08/14/2017 5:11 PM EST) athologist Signature POC Glucose 174 65 - 199 [place] ZHAORYAN mg/dL [facility]ORY Comment: Supplemental ranges: <140 mg/dL before meals <180 mg/dL all other times of the day Specimen Anatomical Collection Method Collection Time Receive d Time (Source) Location / / Volume Laterality Blood specimen 08/14/2017 5:11 PM 018 5:11 (specimen) EST PM EST Yonathan Smith MD POINT OF CARE TEST ORDERABLE S Performing Organization Address City/State/ZIP Code Phon e Number [address] POCT Glucose (08/14/2017 12:10 PM EST) athologist Signature POC Glucose 141 65 - 199 [place] ZHAORYAN mg/dL [facility] Comment: Supplemental ranges: <140 mg/dL before meals <180 mg/dL all other times of the day Specimen Anatomical Collection Method Collection Time Receive d Time (Source) Location / / Volume Laterality Blood specimen 08/14/2017 12:10 8 (specimen) PM EST 12:10 PM EST Yonathan Smith MD POINT OF CARE TEST ORDERABLE S Performing Organization Address City/State/ZIP Code Phon e Number [address] POCT Glucose (08/14/2017 8:07 AM EST) athologist Signature POC Glucose 158 65 - 199 [place] ZHAORYAN mg/dL [facility] Comment: Supplemental ranges: <140 mg/dL before meals <180 mg/dL all other times of the day Specimen Anatomical Collection Method Collection Time Receive d Time (Source) Location / / Volume Laterality Blood specimen 08/14/2017 8:07 AM 018 8:07 (specimen) EST AM EST Yonathan Smith MD POINT OF CARE TEST ORDERABLE S Performing Organization Address City/State/ZIP [place] [address] (ABNORMAL) Differential, Automated (08/14/2017 4:52 AM EST) [facility] Method Time Signature Neutrophils % 78.6 % [facility] LABOR[facility]ORY Neutr Abs (ANC) 7.70 (H) 1.70 - [facility] 6.10 [facility] x10(3)/[facility] L LABORATORY Lymphocytes % 7.8 % [facility] Lymphocytes Abs 0.8 (L) 0.9 - 3.2 [facility] x10(3)/[facility] LABORATORY Monocytes % 8.8 % [facility]ORY Monocyte Abs 0.9 0.3 - 0.9 [facility] x10(3)/[facility] LABORATORY Eosinophils % 4.0 % [facility]ORY Eosinophils Abs 0.4 0.0 - 0.4 [facility] x10(3)/[facility] LABORATORY Basophils % 0.5 % [facility]ORY Basophils Abs 0.0 0.0 - 0.1 [facility] x10(3)/[facility] LABORATORY Immature Gran % 0.30 % [...] 0.03 0.00 - 0.04 x10(3)/mcL MAR Y [facility] LABORATORY Specimen Anatomical Collection Method Collection Time Receive d Time (Source) Location / / Volume Laterality Blood specimen 08/14/2017 4:52 AM 018 5:08 (specimen) EST AM EST Resulting Agency Comment Spec In Lab Yonathan Smith MD HEMATOLOGY ORDERABLES Performing Organization Address City/State/ZIP Code Phon e Number [address] (ABNORMAL) Hemogram (08/14/2017 4:52 AM EST) Analysis Performed At Patho logist Time Signature WBC 9.8 (H) 4.0 - 9.5 [facility] x[facility](3[facility] LABORATORY RBC 3.32 (L) 4.58 - [place]YAN 5.54 [facility] x10(6)/[facility] LABORATORY Hemoglobin 9.5 (L) 13.7 - [facility] 16.5 gm/dL [facility] LABORATORY Hematocrit 30.3 (L) 40.5 - [facility] 48.5 % [facility] LABORATORY MCV 91.3 82.9 - [facility] LAB[facility]ATORY MCH 28.6 27.5 - [facility] 32.1 pg [facility] LABORATORY MCHC 31.4 (L) 32.0 - [facility] 35.7 gm/dL [facility] LABORATORY Platelets 263 145 - 357 [facility] x10(3)/[facility] LABORATORY RDWSD 54.8 (H) 36.0 - [facility]0 [facility] LABORATORY RDWCV 16.5 (H) 11.4 - [facility] 13.8 % [facility] LABORATORY MPV 9.1 7.6 - 12.9 [facility] nRBC % Auto 0.0 % [facility] LABORATORY nRBC Abs Auto 0.000 0.000 - [place] RYAN 0.000 [facility] x10(3)/[facility] LABORATORY Specimen Anatomical Collection Method Collection Time Receive d Time (Source) Location / / Volume Laterality Blood specimen 08/14/2017 4:52 AM 018 5:08 (specimen) EST AM EST Resulting Agency Comment Spec In Lab Yonathan Smith MD HEMATOLOGY ORDERABLES Performing Organization Address City/State/[place] [address] (ABNORMAL) Prothrombin Time (08/14/2017 [...] Address City/State/ZIP [place] [address] (ABNORMAL) Basic Metabolic Panel (non-fasting) (08/14/2017 4:52 AM EST) athologist Signature Glucose Lvl 135 65 - 199 [facility] mg/dL [facility] LAB[facility]ORY Comment: Diabetes: >=200 mg/dL plus symp toms BUN 25 (H) 10 - 20 mg/dL [facility] Creatinine 1.36 0.80 - 1.50 [...] mg/dL [facility] Estimated GFR 52 (L) >=60 [facility] Comment: The reported eGFR should be multiplied b y 1.2 for patients. The MDRD is not an appropriate measure o f renal function for patients with body mass extremes or in patients with acute kidney failure. http://[employer]/DHnkdep http://[employer]/DHMCnkf Specimen Anatomical Collection Method Collection Time Receive d Time (Source) Location / / Volume Laterality Blood specimen 08/14/2017 4:52 AM 018 5:08 (specimen) EST AM EST Resulting Agency Comment Spec In Lab Yonathan Smith MD CHEMISTRY ORDERABLES Performing Organization Address City/[facility]/ZIP [facility] Phon e Number [address] POCT Glucose (08/14/2017 3:56 AM EST) P athologist Signature POC Glucose 135 65 - 199 [facility] mg/dL [facility]ORY Comment: Supplemental ranges: <140 mg/dL before meals <180 mg/dL all other times of the day Specimen Anatomical Collection Method Collection Time Receive d Time (Source) Location / / Volume Laterality Blood specimen 08/14/2017 3:56 AM 018 3:56 (specimen) EST AM EST Yonathan Smith MD POINT OF CARE TEST ORDERABLE S Performing Organization Address City/[facility]/ZIP Code Phon e Number [address] POCT Glucose (08/13/2017 11:13 PM EST) athologist Signature POC Glucose 118 65 - 199 [facility] mg/dL [facility] LAB[facility]ATORY Comment: Supplemental ranges: <140 mg/dL before meals <180 mg/dL all other times of the day Specimen Anatomical Collection Method Collection Time Receive d Time (Source) Location / / Volume Laterality Blood specimen 08/13/2017 11:13 8 (specimen) PM EST 11:13 PM EST Yonathan Smith MD POINT OF CARE TEST ORDERABLE S Performing Organization Address City/State/[place] [address] (ABNORMAL) POCT Glucose (08/13/2017 8:08 PM EST) athologist Signature POC Glucose 204 (H) 65 - 199 [place] ZHAORYAN mg/dL [facility] LAB[facility]ORY Comment: Supplemental ranges: <140 mg/dL before meals <180 mg/dL all other times of the day Specimen Anatomical Collection Method Collection Time Receive d Time (Source) Location / / Volume Laterality Blood specimen 08/13/2017 8:08 PM 018 8:08 (specimen) EST PM EST Yonathan Smith MD POINT OF CARE TEST ORDERABLE S Performing Organization Address City/[facility]/[place] [address] POCT Glucose (08/13/2017 4:02 PM EST) athologist Signature POC Glucose 145 65 - 199 [place] ZHAORYAN mg/dL [facility] LAB[facility]ORY Comment: Supplemental ranges: <140 mg/dL before meals <180 mg/dL all other times of the day Specimen Anatomical Collection Method Collection Time Receive d Time (Source) Location / / Volume Laterality Blood specimen 08/13/2017 4:02 PM 018 4:02 (specimen) EST PM EST Yonathan Smith MD POINT OF CARE TEST ORDERABLE S Performing Organization Address City/State/[place] [address] POCT Glucose (08/13/2017 11:31 AM EST) athologist Signature POC Glucose 179 65 - 199 BARBAR[place] ZHAORYAN mg/dL [facility] LABORATORY Comment: Supplemental ranges: <140 mg/dL before meals <180 mg/dL all other times of the day Specimen Anatomical Collection Method Collection Time Receive d Time (Source) Location / / Volume Laterality Blood specimen 08/13/2017 11:31 8 (specimen) AM EST 11:31 AM EST Yonathan Smith MD POINT OF CARE TEST ORDERABLE S Performing Organization Address City/State/[place] [address] (ABNORMAL) POCT Glucose (08/13/2017 10:16 AM EST) P athologist Signature POC Glucose 211 (H) 65 - 199 [place] RYAN mg/dL [facility]ORY Comment: Supplemental ranges: <140 mg/dL before meals <180 mg/dL all other times of the day Specimen Anatomical Collection Method Collection Time Receive d Time (Source) Location / / Volume Laterality Blood specimen 08/13/2017 10:16 8 (specimen) AM EST 10:16 AM EST Yonathan Smith MD POINT OF CARE TEST ORDERABLE S Performing Organization Address City/State/[place] [address] JULIAN, legs, multiple levels (08/13/2017 7:42 AM EST) Component Value Ref Test Analysis Performed At Patholo gist Range Method Time Signature VB Text Department: Vascular Surgery Lab VASCUBASE Report Patient: [id number] (GREGORY HOANG) CPT: 16805 ICD10: I99.8 Referring Physician: YONATHAN SMITH ?? Indications: s/p R 1,2,3 toe amps with red left foot, need n ew baseline Diabetes mellitus: yes ICD10 Diagnosis Code: I99.8 Findings: Right ?Pressure (mm Hg) ?? JULIAN ??Waveform ?TBI ?? Brachial Artery ?138 ? Dorsalis Pedis (Ankle) Arter y ?132 ? 0.94 ??Bowman- Biphasic ? Posterior Tibial (Ankle) Art anila ??154 ? 1.10 ??Bowman-Biphasic ? Fourth Toe ? 67 ? 0.48 [...] 156 65 - 199 [facility] mg/dL [facility] LABORATORY Comment: Supplemental ranges: <140 mg/dL before meals <180 mg/dL all other times of the day Specimen Anatomical Collection Method Collection Time Receive d Time (Source) Location / / Volume Laterality Blood specimen 08/13/2017 7:33 AM 018 7:33 (specimen) EST AM EST Yonathan Smith MD POINT OF CARE TEST ORDERABLE S Performing Organization Address City/State/ZIP [place] [address] (ABNORMAL) Differential, Automated (08/13/2017 5:33 AM EST) Patholo gist Method Time Signature Neutrophils % 77.8 % [facility] LABORATORY Neutr Abs (ANC) 7.83 (H) 1.70 - [facility] 6.10 [facility] x10(3)/[facility] L LABORATORY Lymphocytes % 8.4 % [facility] LABORATORY Lymphocytes Abs 0.8 (L) 0.9 - 3.2 [facility] x10(3)/[facility] LABORATORY Monocytes % 8.3 % [facility] LABORATORY Monocyte Abs 0.8 0.3 - 0.9 [facility] x10(3)/[facility] LABORATORY Eosinophils % 4.6 % [facility] LABORATORY Eosinophils Abs 0.5 (H) 0.0 - 0.4 [facility] x10(3)/[facility] LABORATORY Basophils % 0.5 % [facility] LABORATORY Basophils Abs 0.0 0.0 - 0.1 [facility] x10(3)/[facility] LABORATORY Immature Gran % 0.40 % [...] Melisa Gran Abs 0.04 0.00 - 0.04 x10(3)/[facility] MAR Y [facility] LABORATORY Specimen Anatomical Collection Method Collection Time Receive d Time (Source) Location / / Volume Laterality Blood specimen 08/13/2017 5:33 AM 018 6:04 (specimen) EST AM EST Resulting Agency Comment Spec In Lab Yonathan Smith MD HEMATOLOGY ORDERABLES Performing Organization Address City/State/[place] [address] (ABNORMAL) Hemogram (08/13/2017 5:33 AM EST) Analysis Performed At Patho logist Time Signature WBC 10.1 (H) 4.0 - 9.5 [facility] x10(3)/[facility] LABORATORY RBC 3.21 (L) 4.58 - [facility] 5.54 [facility] x10(6)/[facility] LABORATORY Hemoglobin 9.2 (L) 13.7 - [facility] 16.5 gm/dL [facility] LABORATORY Hematocrit 29.6 (L) 40.5 - [facility] 48.5 % [facility] LABORATORY MCV 92.2 82.9 - [facility] LAB[facility]ORY MCH 28.7 27.5 - [facility] 32.1 pg [facility] LABORATORY MCHC 31.1 (L) 32.0 - [facility] 35.7 gm/dL [facility] LABORATORY Platelets 263 145 - 357 [facility] x10(3)/[facility] LABORATORY RDWSD 54.8 (H) 36.0 - [facility] 45.0 [facility] LABORATORY RDWCV 16.4 (H) 11.4 - [facility] RYAN 13.8 % [facility] LABORATORY MPV 9.2 7.6 - 12.9 [facility] LABORATORY nRBC % Auto 0.0 % [facility] LABORATORY nRBC Abs Auto 0.000 0.000 - [place] RYAN 0.000 [facility] x10(3)/[facility] LABORATORY Specimen Anatomical Collection Method Collection Time Receive d Time (Source) Location / / Volume Laterality Blood specimen 08/13/2017 5:33 AM 018 6:04 (specimen) EST AM EST Resulting Agency Comment Spec In Lab Yonathan Smith MD HEMATOLOGY ORDERABLES Performing Organization Address City/State/ZIP Code Phon e Number [place] [id number] [address] (ABNORMAL) Prothrombin Time (08/13/2017 5:33 AM EST) P athologist Signature PT 17.3 (H) 11.8 - 14.0 [facility] LABORATORY INR 1.4 (H) 0.9 - 1.1 [facility]IP [place] [address] (ABNORMAL) Basic Metabolic Panel (non-fasting) (08/13/2017 5:33 AM EST) P athologist Signature Glucose Lvl 126 65 - 199 [facility] mg/dL [facility] LABORATORY Comment: Diabetes: >=200 mg/dL plus symp toms BUN 18 10 - 20 mg/dL [facility] LABORATORY Creatinine 1.16 0.80 - 1.50 [facility] LABORATORY CO2 29 22 - 31 mmol/L [facility] LABORATORY Anion Gap 12 5 - 15 mmol/L [facility] LABORATORY Calcium 7.9 (L) 8.5 - 10.5 mg/dL [facility] LABORATORY Estimated GFR >60 >=60 [facility] LABORATORY Comment: The reported eGFR should be multiplied b y 1.2 for patients. The MDRD is not an appropriate measure o f renal function for patients with body mass extremes or in patients with acute kidney failure. [email or web address] [email or web address] Specimen Anatomical Collection Method Collection Time Receive d Time (Source) Location / / Volume Laterality Blood specimen 08/13/2017 5:33 AM 018 6:04 (specimen) EST AM EST Resulting Agency Comment Spec In Lab Yonathan Smith MD CHEMISTRY ORDERABLES Performing Organization Address City/State/[place] [address] POCT Glucose (08/13/2017 4:29 AM EST) athologist Signature POC Glucose 111 65 - 199 [facility] mg/dL [facility] LABORATORY Comment: Supplemental ranges: <140 mg/dL before meals <180 mg/dL all other times of the day Specimen Anatomical Collection Method Collection Time Receive d Time (Source) Location / / Volume Laterality Blood specimen 08/13/2017 4:29 AM 018 4:29 (specimen) EST AM EST Yonathan Smith MD POINT OF CARE TEST ORDERABLE S Performing Organization Address City/[facility]/ZIP Code Phon e Number [address] POCT Glucose (08/12/2017 11:28 PM EST) athologist Signature POC Glucose 164 65 - 199 [facility] mg/dL [facility] LABORATORY Comment: Supplemental ranges: <140 mg/dL before meals <180 mg/dL all other times of the day Specimen Anatomical Collection Method Collection Time Receive d Time (Source) Location / / Volume Laterality Blood specimen 08/12/2017 11:28 8 (specimen) PM EST 11:28 PM EST Yonathan Smith MD POINT OF CARE TEST ORDERABLE S Performing Organization Address City/State/[place] [address] (ABNORMAL) POCT Glucose (08/12/2017 7:40 PM EST) athologist Signature POC Glucose 209 (H) 65 - 199 [facility] mg/dL [facility] LABORATORY Comment: Supplemental ranges: <140 mg/dL before meals <180 mg/dL all other times of the day Specimen Anatomical Collection Method Collection Time Receive d Time (Source) Location / / Volume Laterality Blood specimen 08/12/2017 7:40 PM 018 7:40 (specimen) EST PM EST Yonathan Smith MD POINT OF CARE TEST ORDERABLE S Performing Organization Address City/State/[place] [address] POCT Glucose (08/12/2017 4:24 PM EST) athologist Signature POC Glucose 161 65 - 199 [facility] mg/dL [facility] LABORATORY Comment: Supplemental ranges: <140 mg/dL before meals <180 mg/dL all other times of the day Specimen Anatomical Collection Method Collection Time Receive d Time (Source) Location / / Volume Laterality Blood specimen 08/12/2017 4:24 PM 018 4:24 (specimen) EST PM EST Yonathan Smith MD POINT OF CARE TEST ORDERABLE S Performing Organization Address City/State/ZIP Code Phon e Number [address] POCT Glucose (08/12/2017 12:00 PM EST) athologist Signature POC Glucose 167 65 - 199 [facility] RYAN mg/dL [facility] LABORATORY Comment: Supplemental ranges: <140 mg/dL before meals <180 mg/dL all other times of the day Specimen Anatomical Collection Method Collection Time Receive d Time (Source) Location / / Volume Laterality Blood specimen 08/12/2017 12:00 8 (specimen) PM EST 12:00 PM EST Yonathan Smith MD POINT OF CARE TEST ORDERABLE S Performing Organization Address City/State/[place] [address] POCT Glucose (08/12/2017 7:25 AM EST) athologist Signature POC Glucose 152 65 - 199 [facility] mg/dL [facility] LABORATORY Comment: Supplemental ranges: <140 mg/dL before meals <180 mg/dL all other times of the day Specimen Anatomical Collection Method Collection Time Receive d Time (Source) Location / / Volume Laterality Blood specimen 08/12/2017 7:25 AM 018 7:25 (specimen) EST AM EST Yonathan Smith MD POINT OF CARE TEST ORDERABLE S Performing Organization Address City/State/[place] [address] (ABNORMAL) Differential, Automated (08/12/2017 6:29 AM EST) Patholo gist Method Time Signature Neutrophils % 78.7 % [facility] LABORATORY Neutr Abs (ANC) 7.94 (H) 1.70 - [facility] 6.10 [facility] x10(3)/[facility] LABORATORY Lymphocytes % 8.8 % [facility] LABORATORY Lymphocytes Abs 0.9 0.9 - 3.2 [facility] x10(3)/[facility] LABORATORY Monocytes % 7.8 % [facility] LABORATORY Monocyte Abs 0.8 0.3 - 0.9 [facility] x10(3)/[facility] LABORATORY Eosinophils % 3.9 % [facility] LABORATORY Eosinophils Abs 0.4 0.0 - 0.4 [facility] x10(3)/[facility] LABORATORY Basophils % 0.3 % [facility] LABORATORY Basophils Abs 0.0 0.0 - 0.1 [facility] x10(3)/[facility] LABORATORY Immature Gran % 0.50 % [...] Address City/State/Z[place] [address] (ABNORMAL) Hemogram (08/12/2017 6:29 AM EST) Analysis Performed At Patho logist Time Signature WBC 10.1 (H) 4.0 - 9.5 [facility] x10(3)/[facility] LABORATORY RBC 3.02 (L) 4.58 - [facility] RYAN 5.54 [facility] x10(6)/[facility] LABORATORY Hemoglobin 8.7 (L) 13.7 - [facility] 16.[facility] gm/dL [facility] LABORATORY Hematocrit 28.1 (L) 40.5 - [facility] 48.5 % [facility] LABORATORY MCV 93.0 82.9 - [facility] 93.1 [facility] LABORATORY MCH 28.8 27.5 - [facility] 32.1 pg [facility] LABORATORY MCHC 31.0 (L) 32.0 - [facility] 35.7 gm/dL [facility] LABORATORY Platelets 223 145 - 357 [facility] x10(3)/[facility] LABORATORY RDWSD 56.1 (H) 36.0 - [facility] 45.0 [facility] LABORATORY RDWCV 16.4 (H) 11.4 - [facility] 13.8 % [facility] LABORATORY MPV 9.0 7.6 - 12.9 [facility] LABORATORY nRBC % Auto 0.0 % [facility] LABORATORY nRBC Abs Auto 0.000 0.000 - [facility] 0.000 [facility] x10(3)/[facility] LABORATORY Specimen Anatomical Collection Method Collection Time Receive d Time (Source) Location / / Volume Laterality Blood specimen 08/12/2017 6:29 AM 018 6:38 (specimen) EST AM EST Resulting Agency Comment Spec In Lab Yonathan Smith MD HEMATOLOGY ORDERABLES Performing Organization Address City/State/Z[place] [address] (ABNORMAL) Prothrombin Time (08/12/2017 [...] Address City/State/[place] [address] (ABNORMAL) Basic Metabolic Panel (non-fasting) (08/12/2017 6:29 AM EST) P athologist Signature Glucose Lvl 151 65 - 199 [facility] mg/dL [facility] LABORATORY Comment: Diabetes: >=200 mg/dL plus symp toms BUN 18 10 - 20 mg/dL [facility] LABORATORY Creatinine 1.11 0.80 - 1.50 mg/dL [facility] LABORATORY Sodium 138 135 - 145 mmol/L [facility] [...] estions. Chloride 99 98 - 107 mmol/L [facility] LABORATORY CO2 28 22 - 31 mmol/L [facility] LABORATORY Anion Gap 11 5 - 15 mmol/L [facility] LABORATORY Calcium 7.9 (L) 8.5 - 10.5 mg/dL [facility] LABORATORY Estimated GFR >60 >=60 [facility] LABORATORY Comment: The reported eGFR should be multiplied b y 1.2 for patients. The MDRD is not an appropriate measure o f renal function for patients with body mass extremes or in patients with acute kidney failure. [email or web address] [email or web address] Specimen Anatomical Collection Method Collection Time Receive d Time (Source) Location / / Volume Laterality Blood specimen 08/12/2017 6:29 AM 018 6:38 (specimen) EST AM EST Resulting Agency Comment Spec In Lab Yonathan Smith MD CHEMISTRY ORDERABLES Performing Organization Address City/State/ZIP Code Phon e Number [address] POCT Glucose (08/12/2017 4:08 AM EST) athologist Signature POC Glucose 181 65 - 199 [facility] LABORATORY Comment: Supplemental ranges: <140 mg/dL before meals <180 mg/dL all other times of the day Specimen Anatomical Collection Method Collection Time Receive d Time (Source) Location / / Volume Laterality Blood specimen 08/12/2017 4:08 AM 018 4:08 (specimen) EST AM EST Yonathan Smith MD POINT OF CARE TEST ORDERABLE S Performing Organization Address City/[facility]/[place] [address] (ABNORMAL) POCT Glucose (08/12/2017 12:17 AM EST) athologist Signature POC Glucose 221 (H) 65 - 199 [facility] mg/dL [facility] LABORATORY Comment: Supplemental ranges: <140 mg/dL before meals <180 mg/dL all other times of the day Specimen Anatomical Collection Method Collection Time Receive d Time (Source) Location / / Volume Laterality Blood specimen 08/12/2017 12:17 8 (specimen) AM EST 12:17 AM EST Yonathan Smith MD POINT OF CARE TEST ORDERABLE S Performing Organization Address City/[facility]/ZIP Code Phon e Number [address] (ABNORMAL) POCT Glucose (08/11/2017 8:52 PM EST) athologist Signature POC Glucose 221 (H) 65 - 199 [facility] mg/dL [facility] LABORATORY Comment: Supplemental ranges: <140 mg/dL before meals <180 mg/dL all other times of the day Specimen Anatomical Collection Method Collection Time Receive d Time (Source) Location / / Volume Laterality Blood specimen 08/11/2017 8:52 PM 018 8:52 (specimen) EST PM EST Yonathan Smith MD POINT OF CARE TEST ORDERABLE S Performing Organization Address City/State/[place] [address] POCT Glucose (08/11/2017 5:59 PM EST) athologist Signature POC Glucose 169 65 - 199 [facility] mg/dL [facility] LABORATORY Comment: Supplemental ranges: <140 mg/dL before meals <180 mg/dL all other times of the day Specimen Anatomical Collection Method Collection Time Receive d Time (Source) Location / / Volume Laterality Blood specimen 08/11/2017 5:59 PM 018 5:59 (specimen) EST PM EST Yonathan Smith MD POINT OF CARE TEST ORDERABLE S Performing Organization Address City/State/[place] [address] (ABNORMAL) POCT Glucose (08/11/2017 4:08 PM EST) athologist Signature POC Glucose 240 (H) 65 - 199 [facility] mg/dL [facility] LABORATORY Comment: Supplemental ranges: <140 mg/dL before meals <180 mg/dL all other times of the day Specimen Anatomical Collection Method Collection Time Receive d Time (Source) Location / / Volume Laterality Blood specimen 08/11/2017 4:08 PM 018 4:08 (specimen) EST PM EST Yonathan Smith MD POINT OF CARE TEST ORDERABLE S Performing Organization Address City/State/ZIP Code Phon e Number [address] POCT Glucose (08/11/2017 12:04 PM EST) athologist Signature POC Glucose 182 65 - 199 [facility] mg/dL [facility] LABORATORY Comment: Supplemental ranges: <140 mg/dL before meals <180 mg/dL all other times of the day Specimen Anatomical Collection Method Collection Time Receive d Time (Source) Location / / Volume Laterality Blood specimen 08/11/2017 12:04 8 (specimen) PM EST 12:04 PM EST Yonathan Smith MD POINT OF CARE TEST ORDERABLE S Performing Organization Address City/State/ZIP Code Phon e Number [address] POCT Glucose (08/11/2017 7:31 AM EST) P athologist Signature POC Glucose 156 65 - 199 [facility] mg/dL [facility] LABORATORY Comment: Supplemental ranges: <140 mg/dL before meals <180 mg/dL all other times of the day Specimen Anatomical Collection Method Collection Time Receive d Time (Source) Location / / Volume Laterality Blood specimen 08/11/2017 7:31 AM 018 7:31 (specimen) EST AM EST Yonathan Smith MD POINT OF CARE TEST ORDERABLE S Performing Organization Address City/State/[place] [address] (ABNORMAL) Differential, Automated (08/11/2017 6:16 AM EST) Patholo gist Method Time Signature Neutrophils % 83.7 % [facility] LABORATORY Neutr Abs (ANC) 10.76 (H) 1.70 - [facility] 6.10 [facility] x10(3)/[facility] L LABORATORY Lymphocytes % 6.0 % [facility] LABORATORY Lymphocytes Abs 0.8 (L) 0.9 - 3.2 [facility] x10(3)/[facility] LABORATORY Monocytes % 7.5 % [facility] LABORATORY Monocyte Abs 1.0 (H) 0.3 - 0.9 [facility] x10(3)/[facility] LABORATORY Eosinophils % 2.0 % [facility] LABORATORY Eosinophils Abs 0.3 0.0 - 0.4 [facility] x10(3)/[facility] LABORATORY Basophils % 0.3 % [facility] LABORATORY Basophils Abs 0.0 0.0 - 0.1 [facility] x10(3)/[facility] LABORATORY Immature Gran % 0.50 % [...] City/State/ZIP Code Phon e Number [place] [id number] [address] Drive (ABNORMAL) Hemogram (08/11/2017 6:16 AM EST) Analysis Performed At Patho logist Time Signature WBC 12.9 (H) 4.0 - 9.5 [facility] x10(3)/[facility] LABORATORY RBC 3.28 (L) 4.58 - [facility] 5.54 [facility] x10(6)/[facility] LABORATORY Hemoglobin 9.5 (L) 13.7 - [facility] 16.[facility] gm/dL [facility] LABORATORY Hematocrit 29.8 (L) 40.5 - [facility] 48.5 % [facility] LABORATORY MCV 90.9 82.9 - [facility] LABORATORY MCH 29.0 27.5 - [facility] 32.1 pg [facility] LABORATORY MCHC 31.9 (L) 32.0 - [facility] 35.7 gm/dL [facility] LABORATORY Platelets 236 145 - 357 [facility] x10(3)/[facility] LABORATORY RDWSD 53.5 (H) 36.0 - [facility] LABORATORY RDWCV 16.3 (H) 11.4 - [facility] 13.8 % [facility] LABORATORY MPV 8.8 7.6 - 12.9 [facility] fL [facility] LABORATORY nRBC % Auto 0.0 % [facility] LABORATORY nRBC Abs Auto 0.000 0.000 - [facility] DAVIS 0.000 [facility] x10(3)/[facility] LABORATORY Specimen Anatomical Collection Method Collection Time Receive d Time (Source) Location / / Volume Laterality Blood specimen 08/11/2017 6:16 AM 018 6:24 (specimen) EST AM EST Resulting Agency Comment Spec In Lab Yonathan Smith MD HEMATOLOGY ORDERABLES Performing Organization Address City/State/ZIP Code Phon e Number [address] (ABNORMAL) Prothrombin Time (08/11/2017 [...] Organization Address City/State/[place] [address] Basic Metabolic Panel (non-fasting) (08/11/2017 6:16 AM EST) P athologist Signature Glucose Lvl 139 65 - 199 [facility] mg/dL [facility] LABORATORY Comment: Diabetes: >=200 mg/dL plus symp toms BUN 12 10 - 20 mg/dL [facility] LABORATORY Creatinine 0.91 0.80 - 1.50 mg/dL [facility] LABORATORY Sodium 138 135 - 145 mmol/L [facility] Estimated GFR >60 >=60 [facility] LABORATORY Comment: The reported eGFR should be multiplied b y 1.2 for patients. The MDRD is not an appropriate measure o f renal function for patients with body mass extremes or in patients with acute kidney failure. [email or web address] [email or web address] Specimen Anatomical Collection Method Collection Time Receive d Time (Source) Location / / Volume Laterality Blood specimen 08/11/2017 6:16 AM 018 6:24 (specimen) EST AM EST Resulting Agency Comment Spec In Lab Yonathan Smith MD CHEMISTRY ORDERABLES Performing Organization Address City/State/Z[place] [address] POCT Glucose (08/11/2017 4:07 AM EST) athologist Signature POC Glucose 162 65 - 199 [facility] mg/dL [facility] LABORATORY Comment: Supplemental ranges: <140 mg/dL before meals <180 mg/dL all other times of the day Specimen Anatomical Collection Method Collection Time Receive d Time (Source) Location / / Volume Laterality Blood specimen 08/11/2017 4:07 AM 018 4:07 (specimen) EST AM EST Yonathan Smith MD POINT OF CARE TEST ORDERABLE S Performing Organization Address City/State/ZIP Code Phon e Number [address] POCT Glucose (08/10/2017 11:59 PM EST) athologist Signature POC Glucose 166 65 - 199 [facility] mg/dL [facility] LABORATORY Comment: Supplemental ranges: <140 mg/dL before meals <180 mg/dL all other times of the day Specimen Anatomical Collection Method Collection Time Receive d Time (Source) Location / / Volume Laterality Blood specimen 08/10/2017 11:59 8 (specimen) PM EST 11:59 PM EST Yonathan Smith MD POINT OF CARE TEST ORDERABLE S Performing Organization Address City/[facility]/ZIP Code Phon e Number [address] POCT Glucose (08/10/2017 8:12 PM EST) athologist Signature POC Glucose 156 65 - 199 [facility] mg/dL [facility] LABORATORY Comment: Supplemental ranges: <140 mg/dL before meals <180 mg/dL all other times of the day Specimen Anatomical Collection Method Collection Time Receive d Time (Source) Location / / Volume Laterality Blood specimen 08/10/2017 8:12 PM 018 8:12 (specimen) EST PM EST Yonathan Smith MD POINT OF CARE TEST ORDERABLE S Performing Organization Address City/State/[place] [address] (ABNORMAL) POCT Glucose (08/10/2017 4:42 PM EST) athologist Signature POC Glucose 211 (H) 65 - 199 [facility] mg/dL [facility] LABORATORY Comment: Supplemental ranges: <140 mg/dL before meals <180 mg/dL all other times of the day Specimen Anatomical Collection Method Collection Time Receive d Time (Source) Location / / Volume Laterality Blood specimen 08/10/2017 4:42 PM 018 4:42 (specimen) EST PM EST Yonathan Smith MD POINT OF CARE TEST ORDERABLE S Performing Organization Address City/State/Z[place] [address] (ABNORMAL) Differential, Automated (08/10/2017 2:30 PM EST) [facility] Method Time Signature Neutrophils % 87.6 % [facility] LABORATORY Neutr Abs (ANC) 9.90 (H) 1.70 - [facility] 6.10 [facility] x10(3)/[facility] L LABORATORY Lymphocytes % 4.3 % [facility] LABORATORY Lymphocytes Abs 0.5 (L) 0.9 - 3.2 [facility] x10(3)/[facility] LABORATORY Monocytes % 6.0 % [facility] LABORATORY Monocyte Abs 0.7 0.3 - 0.9 [facility] x10(3)/[facility] LABORATORY Eosinophils % 1.1 % [facility] LABORATORY Eosinophils Abs 0.1 0.0 - 0.4 [facility] x10(3)/[facility] LABORATORY Basophils % 0.4 % [facility] LABORATORY Basophils Abs 0.0 0.0 - 0.1 [facility] x10(3)/[facility] LABORATORY Immature Gran % 0.60 % [...] Organization Address City/State/Z[place] [address] (ABNORMAL) Hemogram (08/10/2017 2:30 PM EST) Analysis Performed At Patho logist Time Signature WBC 11.3 (H) 4.0 - 9.5 [facility] LABORATORY RBC 3.13 (L) 4.58 - [facility] RYAN 5.54 [facility] x10(6)/[facility] [facility] LAB[facility]ATORY Hemoglobin 8.9 (L) 13.7 - [facility]/dL [facility] LABORATORY Hematocrit 28.4 (L) 40.5 - [facility] 48[facility] % [facility] LABORATORY MCV 90.7 82.9 - [facility] LAB[facility]ATORY MCH 28.4 27.5 - [facility] 32.1 pg [facility] LABORATORY MCHC 31.3 (L) 32.0 - [facility] 35.7 gm/dL [facility] LABORATORY Platelets 213 145 - 357 [facility] x10(3)/[facility] LABORATORY RDWSD 53.7 (H) 36.0 - [facility] LABORATORY RDWCV 16.4 (H) 11.4 - [facility] 13.8 % [facility] LABORATORY MPV 8.9 7.6 - 12.9 [facility] LABORATORY nRBC % Auto 0.0 % [facility] LABORATORY nRBC Abs Auto 0.000 0.000 - [facility] 0.000 [facility] x10(3)/[facility] LABORATORY Specimen Anatomical Collection Method Collection Time Receive d Time (Source) Location / / Volume Laterality Blood specimen 08/10/2017 2:30 PM 018 2:48 (specimen) EST PM EST Resulting Agency Comment Spec In Lab Yonathan Smith MD HEMATOLOGY ORDERABLES Performing Organization Address City/State/Z[place] [address] (ABNORMAL) POCT Glucose (08/10/2017 1:50 PM EST) P athologist Signature POC Glucose 243 (H) 65 - 199 [facility] mg/dL [facility] LABORATORY Comment: Supplemental ranges: <140 mg/dL before meals <180 mg/dL all other times of the day Specimen Anatomical Collection Method Collection Time Receive d Time (Source) Location / / Volume Laterality Blood specimen 08/10/2017 1:50 PM 018 1:50 (specimen) EST PM EST Yonathan Smith MD POINT OF CARE TEST ORDERABLE S Performing Organization Address City/State/[place] [address] POCT Glucose (08/10/2017 11:21 AM EST) P athologist Signature POC Glucose 156 65 - 199 [facility] mg/dL [facility] LABORATORY Comment: Supplemental ranges: <140 mg/dL before meals <180 mg/dL all other times of the day Specimen Anatomical Collection Method Collection Time Receive d Time (Source) Location / / Volume Laterality Blood specimen 08/10/2017 11:21 8 (specimen) AM EST 11:21 AM EST Yonathan Smith MD POINT OF CARE TEST ORDERABLE S Performing Organization Address City/State/[place] [address] (ABNORMAL) Differential, Automated (08/10/2017 10:28 AM EST) Patholo gist Method Time Signature Neutrophils % 85.3 % [facility] LABORATORY Neutr Abs (ANC) 9.43 (H) 1.70 - [facility] 6.10 [facility] x10(3)/[facility] L LABORATORY Lymphocytes % 5.5 % [facility] LABORATORY Lymphocytes Abs 0.6 (L) 0.9 - 3.2 [facility] x10(3)/[facility] LABORATORY Monocytes % 5.9 % [facility] LABORATORY Monocyte Abs 0.6 0.3 - 0.9 [facility] x10(3)/[facility] LABORATORY Eosinophils % 2.1 % [facility] LABORATORY Eosinophils Abs 0.2 0.0 - 0.4 [facility] x10(3)/[facility] LABORATORY Basophils % 0.4 % [facility] LABORATORY Basophils Abs 0.0 0.0 - 0.1 [facility] x10(3)/[facility] LABORATORY Immature Gran % 0.80 % [facility] [...] Address City/State/ZIP [place] [address] (ABNORMAL) Hemogram (08/10/2017 10:28 AM EST) Analysis Performed At Patho logist Time Signature WBC 11.0 (H) 4.0 - 9.5 [facility] x10(3)/[facility] LABORATORY RBC 3.02 (L) 4.58 - [facility] 5.54 [facility] x10(6)/[facility] LABORATORY Hemoglobin 8.8 (L) 13.7 - [facility] 16.[facility] gm/dL [facility] LABORATORY Hematocrit 28.1 (L) 40.5 - [facility] 48.5 % [facility] LABORATORY MCV 93.0 82.9 - [facility] LABORATORY MCH 29.1 27.5 - [facility] 32.1 pg [facility] LABORATORY MCHC 31.3 (L) 32.0 - [facility] 35.7 gm/dL [facility] LABORATORY Platelets 207 145 - 357 [facility] x10(3)/[facility] LABORATORY RDWSD 55.3 (H) 36.0 - [facility]YAN 45.0 [facility] LABORATORY RDWCV 16.4 (H) 11.4 - [facility] 13.8 % [facility] LABORATORY MPV 9.0 7.6 - 12.9 [facility] LABORATORY nRBC % Auto 0.0 % [facility] LABORATORY nRBC Abs Auto 0.000 0.000 - [facility] 0.000 [facility] x10(3)/[facility] LABORATORY Specimen Anatomical Collection Method Collection Time Receive d Time (Source) Location / / Volume Laterality Blood specimen 08/10/2017 10:28 8 (specimen) AM EST 10:35 AM EST Resulting Agency Comment Spec In Lab Yonathan Smith MD HEMATOLOGY ORDERABLES Performing Organization Address City/State/ZIP Code Phon e Number [place] [id number] HOSPITAL LABORATORY Drive VS Angiogram/intervention (vascular) (08/10/2017 [...] 2.5x80 5. Completion RLE angiogram 6. L ASSISTANT REAL ESTATE MANAGER angiogram 7. 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 L ASSISTANT REAL ESTATE MANAGER access in the distal L ASSISTANT REAL ESTATE MANAGER. - Closure device: Mynx Technical Procedure: ?The [...] for a 45cm 5F Destination. V18 and [place] a nd QuickCross catheters were used to [...] bifurcation. Access appeared in the distal R ASSISTANT REAL ESTATE MANAGER. Closure and sheath removal was performed with [...] 2.5x80 5. Completion RLE angiogram 6. L ASSISTANT REAL ESTATE MANAGER angiogram 7. 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 L ASSISTANT REAL ESTATE MANAGER access in the distal L ASSISTANT REAL ESTATE MANAGER. - Closure device: Mynx Technical Procedure: The [...] for a 45cm 5F Destination. V18 and [place] a nd QuickCross catheters were used to [...] bifurcation. Access appeared in the distal R ASSISTANT REAL ESTATE MANAGER. Closure and sheath removal was performed with [...] Method Time Signature Neutrophils % 80.1 % [facility] LABORATORY Neutr Abs (ANC) 9.01 (H) 1.70 - [facility] 6.10 [facility] x10(3)/[facility] LABORATORY Lymphocytes % 8.8 % [facility] LABORATORY Lymphocytes Abs 1.0 0.9 - 3.2 [facility] x10(3)/[facility] LABORATORY Monocytes % 8.3 % [facility] LABORATORY Monocyte Abs 0.9 0.3 - 0.9 [facility] x10(3)/[facility] LABORATORY Eosinophils % 2.0 % [facility] LABORATORY Eosinophils Abs 0.2 0.0 - 0.4 [facility] x10(3)/[facility] LABORATORY Basophils % 0.4 % [facility] LABORATORY Basophils Abs 0.0 0.0 - 0.1 [facility] x10(3)/[facility] LABORATORY Immature Gran % 0.40 % [...] Address City/State/Z[place] [address] (ABNORMAL) Hemogram (08/10/2017 5:50 AM EST) Analysis Performed At Patho logist Time Signature WBC 11.3 (H) 4.0 - 9.5 [facility] x[facility](3[facility] LABORATORY RBC 3.15 (L) 4.58 - [facility] 5.54 [facility] x10(6)/[facility] LABORATORY Hemoglobin 8.9 (L) 13.7 - [facility] 16.5 gm/dL [facility] LABORATORY Hematocrit 29.0 (L) 40.5 - [facility] 48.5 % [facility] LABORATORY MCV 92.1 82.9 - [facility] LABORATORY MCH 28.3 27.5 - [facility] 32.1 pg [facility] LABORATORY MCHC 30.7 (L) 32.0 - [facility] RYAN 35.7 gm/dL [facility] LABORATORY Platelets 231 145 - 357 [facility] x10(3)/[facility] LABORATORY RDWSD 53.9 (H) 36.0 - [facility] RYAN 45.0 [facility] LABORATORY RDWCV 16.2 (H) 11.4 - [facility] RYAN 13.8 % [facility] LABORATORY MPV 8.7 7.6 - 12.9 [facility] nRBC % Auto 0.0 % [facility] LABORATORY nRBC Abs Auto 0.000 0.000 - [facility] RYAN 0.000 [facility] x10(3)/[facility] LABORATORY Specimen Anatomical Collection Method Collection Time Receive d Time (Source) Location / / Volume Laterality Blood specimen 08/10/2017 5:50 AM 018 5:59 (specimen) EST AM EST Resulting Agency Comment Spec In Lab Yonathan Smith MD HEMATOLOGY ORDERABLES Performing Organization Address City/State/Z[place] [address] (ABNORMAL) Basic Metabolic Panel (non-fasting) (08/10/2017 5:50 AM EST) P athologist Signature Glucose Lvl 135 65 - 199 [facility] mg/dL [facility] LABORATORY Comment: Diabetes: >=200 mg/dL plus symp [...] Calcium 8.1 (L) 8.5 - 10.5 mg/dL [facility] LABORATORY Estimated GFR >60 >=60 [facility] LABORATORY Comment: The reported eGFR should be multiplied b y 1.2 for patients. The MDRD is not an appropriate measure o f renal function for patients with body mass extremes or in patients with acute kidney failure. http://Fanbase.Jigsaw Meeting/DHnkdep http://Fanbase.Jigsaw Meeting/DHMCnkf Specimen Anatomical Collection Method Collection Time Receive d Time (Source) Location / / Volume Laterality Blood specimen 08/10/2017 5:50 AM 018 5:59 (specimen) EST AM EST Resulting Agency Comment Spec In Lab Yonathan Smith MD CHEMISTRY ORDERABLES Performing Organization Address City/State/ZIP Code Phon e Number [address] (ABNORMAL) Prothrombin Time (08/10/2017 5:50 AM EST) athologist Signature PT 16.8 (H) 11.8 - 14.0 [facility] LABORATORY INR 1.4 (H) 0.9 - 1.1 [facility] Organization Address City/State/[place] [address] (ABNORMAL) POCT Glucose (08/10/2017 4:01 AM EST) athologist Signature POC Glucose 206 (H) 65 - 199 [facility] mg/dL [facility] LABORATORY Comment: Supplemental ranges: <140 mg/dL before meals <180 mg/dL all other times of the day Specimen Anatomical Collection Method Collection Time Receive d Time (Source) Location / / Volume Laterality Blood specimen 08/10/2017 4:01 AM 018 4:01 (specimen) EST AM EST Yonathan Smith MD POINT OF CARE TEST ORDERABLE S Performing Organization Address City/State/[place] [address] POCT Glucose (08/10/2017 2:01 AM EST) athologist Signature POC Glucose 188 65 - 199 [facility] mg/dL [facility] LABORATORY Comment: Supplemental ranges: <140 mg/dL before meals <180 mg/dL all other times of the day Specimen Anatomical Collection Method Collection Time Receive d Time (Source) Location / / Volume Laterality Blood specimen 08/10/2017 2:01 AM 018 2:01 (specimen) EST AM EST Yonathan Smith MD POINT OF CARE TEST ORDERABLE S Performing Organization Address City/State/[place] [address] (ABNORMAL) POCT Glucose (08/09/2017 11:42 PM EST) athologist Signature POC Glucose 283 (H) 65 - 199 [facility] RYAN mg/dL [facility] LABORATORY Comment: Supplemental ranges: <140 mg/dL before meals <180 mg/dL all other times of the day Specimen Anatomical Collection Method Collection Time Receive d Time (Source) Location / / Volume Laterality Blood specimen 08/09/2017 11:42 8 (specimen) PM EST 11:42 PM EST Yonathan Smith MD POINT OF CARE TEST ORDERABLE S Performing Organization Address City/[facility]/[place] [address] POCT Glucose (08/09/2017 8:55 PM EST) athologist Signature POC Glucose 182 65 - 199 [facility] mg/dL [facility] LABORATORY Comment: Supplemental ranges: <140 mg/dL before meals <180 mg/dL all other times of the day Specimen Anatomical Collection Method Collection Time Receive d Time (Source) Location / / Volume Laterality Blood specimen 08/09/2017 8:55 PM 018 8:55 (specimen) EST PM EST Yonathan Smith MD POINT OF CARE TEST ORDERABLE S Performing Organization Address City/State/[place] [address] (ABNORMAL) APTT (08/09/2017 6:42 PM EST) athologist Signature PTT 90 (H) 25 - 35 sec [facility] LABORATORY Comment: The recommended therapeutic range for fu ll dose, unfractionated heparin at [facility] is 80 ? 114 seconds. The use [...] Address City/State/ZIP Code Phon e Number [address] POCT Glucose (08/09/2017 4:41 PM EST) athologist Signature POC Glucose 195 65 - 199 [facility] mg/dL [facility] LABORATORY Comment: Supplemental ranges: <140 mg/dL before meals <180 mg/dL all other times of the day Specimen Anatomical Collection Method Collection Time Receive d Time (Source) Location / / Volume Laterality Blood specimen 08/09/2017 4:41 PM 018 4:41 (specimen) EST PM EST Yonathan Smith MD POINT OF CARE TEST ORDERABLE S Performing Organization Address City/[facility]/ZIP Code Phon e Number [address] POCT Glucose (08/09/2017 12:29 PM EST) athologist Signature POC Glucose 140 65 - 199 [facility] mg/dL [facility] LABORATORY Comment: Supplemental ranges: <140 mg/dL before meals <180 mg/dL all other times of the day Specimen Anatomical Collection Method Collection Time Receive d Time (Source) Location / / Volume Laterality Blood specimen 08/09/2017 12:29 8 (specimen) PM EST 12:29 PM EST Yonathan Smith MD POINT OF CARE TEST ORDERABLE S Performing Organization Address City/State/ZIP Code Phon e Number [address] POCT Glucose (08/09/2017 9:59 AM EST) athologist Signature POC Glucose 135 65 - 199 [facility] mg/dL [facility] LABORATORY Comment: Supplemental ranges: <140 mg/dL before meals <180 mg/dL all other times of the day Specimen Anatomical Collection Method Collection Time Receive d Time (Source) Location / / Volume Laterality Blood specimen 08/09/2017 9:59 AM 018 9:59 (specimen) EST AM EST Yonathan Smith MD POINT OF CARE TEST ORDERABLE S Performing Organization Address City/[facility]/[place] [address] Specimen to Pathology (08/09/2017 8:41 AM EST) Specimen Anatomical Collection Method Collection Time Receive d Time (Source) Location / / Volume Laterality AP Specimen 08/09/2017 8:41 AM 8 8:41 EST AM EST Narrative [facility] LABORAT ORY - 08/09/2017 8:41 AM EST Specimen requisition ordered. ??Separate Pathology report to follow Yonathan Smith MD PATHOLOGY/CYTOLOGY ORDERABLE S Performing Organization Address City/[facility]/[place] [address] Surgical Pathology Report (08/09/2017 8:40 AM EST) Component Value Ref Test Analysis Performed At [facility] gist Range Method Time Signature Surgical [id number] ? Location: [facility]; [facility]; [facility] Report The signing pathologist has (i) examined the relevant preparation(s) for the [facility] specimen(s) and (ii) rendered or confirmed the diagnosis(es) . HOSPITAL LABORATORY . 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 ?Viable proximal resection margins. Electronically signed by: ??Henrique Saravia MD Verified: ??08/13/2017 ?Pathologist Performed at: ??-[facility] Dept. of Pathology, [place], [place] CLINICAL INFORMATION Specimen Submitted: A - [...] [facility]/[place] [address] Anaerobic Culture (08/09/2017 8:30 AM EST) [facility] gist Method Time Signature Anaerobic No anaerobic [facility] Culture organisms [facility] LABORATORY Specimen Anatomical Collection Method Collection Time [...] Organization Address City/State/[place] [address] (ABNORMAL) Abscess/Wound Aspirate Culture (08/09/2017 8:30 AM EST) Patholo gist Method Time Signature Abscess/Wound Moderate mixed [facility] Aspirate bacterial [place] Culture morphotypes [facility] normal LABORATORY cutaneous leroy (A) Gram Stain Rare White Blood Cells [facility] Few Gram Positive Cocci in pairs [place] (A) [facility] LABORATORY Organism Gram Positive [facility] Cocci in pairs [place] (A) [facility] LABORATORY Specimen Anatomical Collection Method Collection Time [...] Address City/State/ZIP Code Phon e Number [address] POCT Glucose (08/09/2017 4:28 AM EST) P athologist Signature POC Glucose 128 65 - 199 [facility] mg/dL [facility] LABORATORY Comment: Supplemental ranges: <140 mg/dL before meals <180 mg/dL all other times of the day Specimen Anatomical Collection Method Collection Time Receive d Time (Source) Location / / Volume Laterality Blood specimen 08/09/2017 4:28 AM 018 4:28 (specimen) EST AM EST Yonathan Smith MD POINT OF CARE TEST ORDERABLE S Performing Organization Address City/[facility]/[place] [address] ABORH Recheck Status (08/09/2017 1:10 AM EST) [facility] gist Method Time Signature ABORH Type Completed [facility] LABORATORY Specimen Anatomical Collection Method Collection Time Receive d Time (Source) Location / / Volume Laterality Blood specimen 08/09/2017 1:10 AM 018 1:35 (specimen) EST AM EST Resulting Agency Comment Spec In Lab Yonathan Smith MD BLOOD BANK ORDERABLES Performing Organization Address City/[facility]/[place] [address] Antibody screen (08/09/2017 1:10 AM EST) Patholo gist Method Time Signature Ab Screen Negative [facility] LABORATORY Expires at 08/12/2017 [facility] ZHAORYAN [id number] on: [facility] LABORATORY Specimen Anatomical Collection Method Collection Time Receive d Time (Source) Location / / Volume Laterality Blood specimen 08/09/2017 1:10 AM 018 1:35 (specimen) EST AM EST Resulting Agency Comment Spec In Lab Yonathan Smith MD BLOOD BANK ORDERABLES Performing Organization Address City/[facility]/ZIP Code Phon e Number [address] ABO/Rh Typing (08/09/2017 1:10 [...] [facility]/[place] [address] (ABNORMAL) APTT (08/09/2017 1:10 AM EST) P athologist Signature PTT 86 (H) 25 - 35 sec [facility] LABORATORY Comment: The recommended therapeutic range for fu ll dose, unfractionated heparin at [facility] is 80 ? 114 seconds. The use [...] [facility]/[place] [address] (ABNORMAL) Differential, Automated (08/09/2017 1:10 AM EST) [facility] Method Time Signature Neutrophils % 76.2 % [facility] LABORATORY Neutr Abs (ANC) 8.59 (H) 1.70 - [facility] 6.10 [facility] x10(3)/[facility] LABORATORY Lymphocytes % 11.0 % [facility] LABORATORY Lymphocytes Abs 1.2 0.9 - 3.2 [facility] x10(3)/[facility] LABORATORY Monocytes % 8.4 % [facility] LABORATORY Monocyte Abs 1.0 (H) 0.3 - 0.9 [facility] x10(3)/[facility] LABORATORY Eosinophils % 3.5 % [facility] LABORATORY Eosinophils Abs 0.4 0.0 - 0.4 [facility] x10(3)/[facility] LABORATORY Basophils % 0.5 % [facility] LABORATORY Basophils Abs 0.1 0.0 - 0.1 [facility] x10(3)/[facility] LABORATORY Immature Gran % 0.40 % [...] Address City/State/[place] [address] [facility] LABORATORY Drive (ABNORMAL) Hemogram (08/09/2017 1:10 AM EST) Analysis Performed At Patho logist Time Signature WBC 11.3 (H) 4.0 - 9.5 [facility] x10(3)/[facility] LABORATORY RBC 3.47 (L) 4.58 - [facility] 5.54 [facility] x10(6)/[facility] LABORATORY Hemoglobin 10.0 (L) 13.7 - [facility] gm/dL [facility] LABORATORY Hematocrit 31.9 (L) 40.5 - [facility] 48.5 % [facility] LABORATORY MCV 91.9 82.9 - [facility] LABORATORY MCH 28.8 27.5 - [facility] 32.1 pg [facility] LABORATORY MCHC 31.3 (L) 32.0 - [facility] 35.7 gm/dL [facility] LABORATORY Platelets 234 145 - 357 [facility] x10(3)/[facility] LABORATORY RDWSD 54.0 (H) 36.0 - [facility] 45.0 [facility] LABORATORY RDWCV 16.2 (H) 11.4 - [facility] 13.8 % [facility] LABORATORY MPV 8.7 7.6 - 12.9 [facility] LABORATORY nRBC % Auto 0.0 % [facility] LABORATORY nRBC Abs Auto 0.000 0.000 - [facility] 0.000 [facility] x10(3)/[facility] LABORATORY Specimen Anatomical Collection Method Collection Time Receive d Time (Source) Location / / Volume Laterality Blood specimen 08/09/2017 1:10 AM 018 1:19 (specimen) EST AM EST Resulting Agency Comment Spec In Lab Yonathan Smith MD HEMATOLOGY ORDERABLES Performing Organization Address City/State/[place] [address] (ABNORMAL) Prothrombin Time (08/09/2017 [...] City/State/ZIP Code Phon e Number [place] [id number] (ABNORMAL) Basic Metabolic Panel (non-fasting) (08/09/2017 1:10 AM EST) P athologist Signature Glucose Lvl 108 65 - 199 [facility] mg/dL [facility] LABORATORY Comment: Diabetes: >=200 mg/dL plus symp toms BUN 34 (H) 10 - 20 mg/dL [facility] LABORATORY Creatinine 1.54 (H) 0.80 - 1.50 mg/dL [facility] LABORATORY Sodium 138 135 - 145 mmol/L [facility] LABORATORY Potassium 4.5 3.5 - 5.0 mmol/L [facility] LABORATORY Comment: Please note: ??Patients with WBC >100,00 0 may have falsely elevated Potassium levels. ??For accurate Potassium quantif ication in these patients send serum separator tube (gold top) for subsequent determinations. ??Contact the Clinical Chemistry Laboratory if there are any qu estions. Chloride 96 (L) 98 - 107 mmol/L [facility] LABORATORY CO2 29 22 - 31 mmol/L [facility] LABORATORY Anion Gap 13 5 - 15 mmol/L [facility] LABORATORY Calcium 8.3 (L) 8.5 - 10.5 mg/dL [facility] LABORATORY Estimated GFR 45 (L) >=60 [facility] LABORATORY Comment: The reported eGFR should be multiplied b y 1.2 for patients. The MDRD is not an appropriate measure o f renal function for patients with body mass extremes or in patients with acute kidney failure. http://[employer]/DHnkdep http://[employer]/DHMCnkf Specimen Anatomical Collection Method Collection Time Receive d Time (Source) Location / / Volume Laterality Blood specimen 08/09/2017 1:10 AM 018 1:19 (specimen) EST AM EST Resulting Agency Comment Spec In Lab Yonathan Smith MD CHEMISTRY ORDERABLES Performing Organization Address City/State/ZIP Code Phon e Number [address] POCT Glucose (08/09/2017 12:05 AM EST) athologist Signature POC Glucose 128 65 - 199 [facility] mg/dL [facility] LABORATORY Comment: Supplemental ranges: <140 mg/dL before meals <180 mg/dL all other times of the day Specimen Anatomical Collection Method Collection Time Receive d Time (Source) Location / / Volume Laterality Blood specimen 08/09/2017 12:05 8 (specimen) AM EST 12:05 AM EST Yonathna Smith MD POINT OF CARE TEST ORDERABLE S Performing Organization Address City/[facility]/[place] [address] (ABNORMAL) POCT Glucose (08/08/2017 7:36 PM EST) athologist Signature POC Glucose 215 (H) 65 - 199 [facility] mg/dL [facility] LABORATORY Comment: Supplemental ranges: <140 mg/dL before meals <180 mg/dL all other times of the day Specimen Anatomical Collection Method Collection Time Receive d Time (Source) Location / / Volume Laterality Blood specimen 08/08/2017 7:36 PM 018 7:36 (specimen) EST PM EST Yonathan Smith MD POINT OF CARE TEST ORDERABLE S Performing Organization Address City/[facility]/[place] [address] (ABNORMAL) POCT Glucose (08/08/2017 6:23 PM EST) athologist Signature POC Glucose 216 (H) 65 - 199 [facility] mg/dL [facility] LABORATORY Comment: Supplemental ranges: <140 mg/dL before meals <180 mg/dL all other times of the day Specimen Anatomical Collection Method Collection Time Receive d Time (Source) Location / / Volume Laterality Blood specimen 08/08/2017 6:23 PM 018 6:23 (specimen) EST PM EST Yonathan Smith MD POINT OF CARE TEST ORDERABLE S Performing Organization Address City/[facility]/[place] [address] (ABNORMAL) APTT (08/08/2017 6:00 PM EST) athologist Signature PTT 97 (H) 25 - 35 sec [facility] LABORATORY Comment: The recommended therapeutic range for fu ll dose, unfractionated heparin at [facility] is 80 ? 114 seconds. The use [...] [facility] [address] POCT Glucose (08/08/2017 4:42 PM EST) athologist Signature POC Glucose 78 65 - 199 [facility] LABORATORY Comment: Supplemental ranges: <140 mg/dL before meals <180 mg/dL all other times of the day Specimen Anatomical Collection Method Collection Time Receive d Time (Source) Location / / Volume Laterality Blood specimen 08/08/2017 4:42 PM 018 4:42 (specimen) EST PM EST Yonathan Smith MD POINT OF CARE TEST ORDERABLE S Performing Organization Address City/State/[place] [address] (ABNORMAL) POCT Glucose (08/08/2017 4:01 PM EST) athologist Signature POC Glucose 58 (L) 65 - 199 [facility] mg/dL [facility] LABORATORY Comment: Supplemental ranges: <140 mg/dL before meals <180 mg/dL all other times of the day Specimen Anatomical Collection Method Collection Time Receive d Time (Source) Location / / Volume Laterality Blood specimen 08/08/2017 4:01 PM 018 4:01 (specimen) EST PM EST Yonathan Smith MD POINT OF CARE TEST ORDERABLE S Performing Organization Address City/State/[place] [address] POCT Glucose (08/08/2017 11:51 AM EST) athologist Signature POC Glucose 90 65 - 199 [facility] mg/dL [facility] LABORATORY Comment: Supplemental ranges: <140 mg/dL before meals <180 mg/dL all other times of the day Specimen Anatomical Collection Method Collection Time Receive d Time (Source) Location / / Volume Laterality Blood specimen 08/08/2017 11:51 8 (specimen) AM EST 11:51 AM EST Yonathan Smith MD POINT OF CARE TEST ORDERABLE S Performing Organization Address City/State/[place] [address] (ABNORMAL) APTT (08/08/2017 10:27 AM EST) athologist Signature PTT 64 (H) 25 - 35 sec [facility] LABORATORY Comment: The recommended therapeutic range for fu ll dose, unfractionated heparin at [facility] is 80 ? 114 seconds. The use [...] Address City/State/ZIP Code Phon e Number [address] POCT Glucose (08/08/2017 8:02 AM EST) athologist Signature POC Glucose 178 65 - 199 [facility] mg/dL [facility] LABORATORY Comment: Supplemental ranges: <140 mg/dL before meals <180 mg/dL all other times of the day Specimen Anatomical Collection Method Collection Time Receive d Time (Source) Location / / Volume Laterality Blood specimen 08/08/2017 8:02 AM 018 8:02 (specimen) EST AM EST Yonathan Smith MD POINT OF CARE TEST ORDERABLE S Performing Organization Address [facility] Phon e Number [address] (ABNORMAL) APTT (08/08/2017 4:51 AM EST) athologist Signature PTT >160 25 - 35 [facility] (Critical) [facility] LABORATORY Comment: Called by: HOWARD, Read back by: Melba Jaramillo, Date/Time:08/08/17 05:43. The recommended therapeutic range for fu ll dose, unfractionated heparin at [facility] is 80 ? 114 seconds. The use [...] [facility]/ZIP Code Phon e Number [address] (ABNORMAL) Differential, Automated (08/08/2017 4:51 AM EST) Patholo gist Method Time Signature Neutrophils % 77.9 % [facility] LABORATORY Neutr Abs (ANC) 8.17 (H) 1.70 - [facility] 6.10 [facility] x10(3)/[facility] L LABORATORY Lymphocytes % 10.3 % [facility] LABORATORY Lymphocytes Abs 1.1 0.9 - 3.2 [facility] x10(3)/[facility] LABORATORY Monocytes % 7.0 % [facility] LABORATORY Monocyte Abs 0.7 0.3 - 0.9 [facility] x10(3)/[facility] LABORATORY Eosinophils % 3.6 % [facility] LABORATORY Eosinophils Abs 0.4 0.0 - 0.4 [facility] x10(3)/[facility] LABORATORY Basophils % 0.5 % [facility] LABORATORY Basophils Abs 0.0 0.0 - 0.1 [facility] x10(3)/[facility] LABORATORY Immature Gran % 0.70 % [...] Address City/State/Z[place] [address] (ABNORMAL) Hemogram (08/08/2017 4:51 AM EST) Analysis Performed At Patho logist Time Signature WBC 10.5 (H) 4.0 - 9.5 [facility] x10(3)/[facility] LABORATORY RBC 3.27 (L) 4.58 - [facility] 5.54 [facility] x10(6)/[facility] LABORATORY Hemoglobin 9.3 (L) 13.7 - [facility] 16.5 gm/dL [facility] LABORATORY Hematocrit 30.3 (L) 40.5 - [facility] 48.5 % [facility] LABORATORY MCV 92.7 82.9 - [facility] LABORATORY MCH 28.4 27.5 - [facility] 32.1 pg [facility] LABORATORY MCHC 30.7 (L) 32.0 - [facility] 35.7 gm/dL [facility] LABORATORY Platelets 252 145 - 357 [facility] x10(3)/[facility] LABORATORY RDWSD 54.6 (H) 36.0 - [facility] LABORATORY RDWCV 16.2 (H) 11.4 - [facility] 13.8 % [facility] LABORATORY MPV 9.1 7.6 - 12.9 [facility] LABORATORY nRBC % Auto 0.0 % [facility] LABORATORY nRBC Abs Auto 0.000 0.000 - [facility] 0.000 [facility] x10(3)/[facility] LABORATORY Specimen Anatomical Collection Method Collection Time Receive d Time (Source) Location / / Volume Laterality Blood specimen 08/08/2017 4:51 AM 018 5:14 (specimen) EST AM EST Resulting Agency Comment Spec In Lab Yonathan Smith MD HEMATOLOGY ORDERABLES Performing Organization Address City/State/[place] [address] (ABNORMAL) Prothrombin Time (08/08/2017 4:51 AM EST) P athologist Signature PT 18.1 (H) 11.8 - 14.0 [facility] LABORATORY INR 1.5 (H) 0.9 - 1.1 [facility] [place] [facility] Address City/State/Z[place] [address] (ABNORMAL) Basic Metabolic Panel (non-fasting) (08/08/2017 4:51 AM EST) athologist Signature Glucose Lvl 229 (H) 65 - 199 [facility] mg/dL [facility] LABORATORY Comment: Diabetes: >=200 mg/dL plus symp toms BUN 35 (H) 10 - 20 mg/dL [facility] LABORATORY Creatinine 1.57 (H) 0.80 - 1.50 mg/dL [facility] LABORATORY Sodium 136 135 - 145 mmol/L [facility] LABORATORY Potassium 4.5 3.5 - 5.0 mmol/L [facility] LABORATORY Comment: Please note: ??Patients with WBC >100,00 0 may have falsely elevated Potassium levels. ??For accurate Potassium quantif ication in these patients send serum separator tube (gold top) for subsequent determinations. ??Contact the Clinical Chemistry Laboratory if there are any qu estions. Chloride 94 (L) 98 - 107 mmol/L [facility] LABORATORY CO2 25 22 - 31 mmol/L [facility] LABORATORY Anion Gap 17 (H) 5 - 15 mmol/L [facility] LABORATORY Calcium 7.9 (L) 8.5 - 10.5 mg/dL [facility] LABORATORY Estimated GFR 44 (L) >=60 [facility] LABORATORY Comment: The reported eGFR should be multiplied b y 1.2 for patients. The MDRD is not an appropriate measure o f renal function for patients with body mass extremes or in patients with acute kidney failure. [email or web address] [email or web address]/[facility] Specimen Anatomical Collection Method Collection Time Receive d Time (Source) Location / / Volume Laterality Blood specimen 08/08/2017 4:51 AM 018 5:14 (specimen) EST AM EST Resulting Agency Comment Spec In Lab Yonathan Smith MD CHEMISTRY ORDERABLES Performing Organization Address City/State/[place] [address] POCT Glucose (08/08/2017 4:20 AM EST) athologist Signature POC Glucose 193 65 - 199 [facility] mg/dL [facility] LABORATORY Comment: Supplemental ranges: <140 mg/dL before meals <180 mg/dL all other times of the day Specimen Anatomical Collection Method Collection Time Receive d Time (Source) Location / / Volume Laterality Blood specimen 08/08/2017 4:20 AM 018 4:20 (specimen) EST AM EST Yonathan Smith MD POINT OF CARE TEST ORDERABLE S Performing Organization Address City/State/[place] [address] POCT Glucose (08/07/2017 11:11 PM EST) athologist Signature POC Glucose 124 65 - 199 [facility] mg/dL [facility] LABORATORY Comment: Supplemental ranges: <140 mg/dL before meals <180 mg/dL all other times of the day Specimen Anatomical Collection Method Collection Time Receive d Time (Source) Location / / Volume Laterality Blood specimen 08/07/2017 11:11 8 (specimen) PM EST 11:11 PM EST Yonathan Smith MD POINT OF CARE TEST ORDERABLE S Performing Organization Address City/State/[place] [address] (ABNORMAL) APTT (08/07/2017 10:18 PM EST) athologist Signature PTT 114 (H) 25 - 35 sec [facility] LABORATORY Comment: The recommended therapeutic range for fu ll dose, unfractionated heparin at [facility] is 80 ? 114 seconds. The use [...] [facility]/ZIP Code Phon e Number [address] POCT Glucose (08/07/2017 8:10 PM EST) athologist Signature POC Glucose 140 65 - 199 [facility] mg/dL [facility] LABORATORY Comment: Supplemental ranges: <140 mg/dL before meals <180 mg/dL all other times of the day Specimen Anatomical Collection Method Collection Time Receive d Time (Source) Location / / Volume Laterality Blood specimen 08/07/2017 8:10 PM 018 8:10 (specimen) EST PM EST Yonathan Smith MD POINT OF CARE TEST ORDERABLE S Performing Organization Address City/[facility]/ZIP Code Phon e Number [address] POCT Glucose (08/07/2017 5:27 PM EST) athologist Signature POC Glucose 187 65 - 199 [facility] mg/dL [facility] LABORATORY Comment: Supplemental ranges: <140 mg/dL before meals <180 mg/dL all other times of the day Specimen Anatomical Collection Method Collection Time Receive d Time (Source) Location / / Volume Laterality Blood specimen 08/07/2017 5:27 PM 018 5:27 (specimen) EST PM EST Yonathan Smith MD POINT OF CARE TEST ORDERABLE S Performing Organization Address City/[facility]/ZIP Code Phon e Number [address] POCT Glucose (08/07/2017 3:29 PM EST) athologist Signature POC Glucose 86 65 - 199 [facility] mg/dL [facility] LABORATORY Comment: Supplemental ranges: <140 mg/dL before meals <180 mg/dL all other times of the day Specimen Anatomical Collection Method Collection Time Receive d Time (Source) Location / / Volume Laterality Blood specimen 08/07/2017 3:29 PM 018 3:29 (specimen) EST PM EST Yonathan Smith MD POINT OF CARE TEST ORDERABLE S Performing Organization Address City/[facility]/[place] [address] (ABNORMAL) APTT (08/07/2017 2:50 PM EST) athologist Signature PTT 60 (H) 25 - 35 sec [facility] LABORATORY Comment: The recommended therapeutic range for fu ll dose, unfractionated heparin at [facility] is 80 ? 114 seconds. The use [...] [facility] [address] (ABNORMAL) POCT Glucose (08/07/2017 2:23 PM EST) athologist Signature POC Glucose 55 (L) 65 - 199 [facility] mg/dL [facility] LABORATORY Comment: Supplemental ranges: <140 mg/dL before meals <180 mg/dL all other times of the day Specimen Anatomical Collection Method Collection Time Receive d Time (Source) Location / / Volume Laterality Blood specimen 08/07/2017 2:23 PM 018 2:23 (specimen) EST PM EST Yonathan Smith MD POINT OF CARE TEST ORDERABLE S Performing Organization Address City/[facility]/[place] [address] POCT Glucose (08/07/2017 12:08 PM EST) P athologist Signature POC Glucose 77 65 - 199 [facility] mg/dL [facility] LABORATORY Comment: Supplemental ranges: <140 mg/dL before meals <180 mg/dL all other times of the day Specimen Anatomical Collection Method Collection Time Receive d Time (Source) Location / / Volume Laterality Blood specimen 08/07/2017 12:08 8 (specimen) PM EST 12:08 PM EST Yonathan Smith MD POINT OF CARE TEST ORDERABLE S Performing Organization Address City/State/[place] [address] (ABNORMAL) Differential, Automated (08/07/2017 7:30 AM EST) Patholo gist Method Time Signature Neutrophils % 73.8 % [facility] LABORATORY Neutr Abs (ANC) 7.17 (H) 1.70 - [facility] 6.10 [facility] x10(3)/[facility] LABORATORY Lymphocytes % 12.2 % [facility] LABORATORY Lymphocytes Abs 1.2 0.9 - 3.2 [facility] x10(3)/[facility] LABORATORY Monocytes % 9.0 % [facility] LABORATORY Monocyte Abs 0.9 0.3 - 0.9 [facility] x10(3)/[facility] LABORATORY Eosinophils % 3.9 % [facility] LABORATORY Eosinophils Abs 0.4 0.0 - 0.4 [facility] x10(3)/[facility] LABORATORY Basophils % 0.6 % [facility] LABORATORY Basophils Abs 0.1 0.0 - 0.1 [facility] x10(3)/[facility] LABORATORY Immature Gran % 0.50 % [...] Address City/State/Z[place] [address] (ABNORMAL) Hemogram (08/07/2017 7:30 AM EST) Analysis Performed At Patho logist Time Signature WBC 9.7 (H) 4.0 - 9.5 [facility] x10(3)/[facility] LABORATORY RBC 3.54 (L) 4.58 - [facility] 5.54 [facility] x10(6)/[facility] LABORATORY Hemoglobin 9.9 (L) 13.7 - [facility] 16.5 gm/dL [facility] LABORATORY Hematocrit 32.3 (L) 40.5 - [facility] 48.5 % [facility] LABORATORY MCV 91.2 82.9 - [facility] LAB[facility]ATORY MCH 28.0 27.5 - [facility] 32.1 pg [facility] LABORATORY MCHC 30.7 (L) 32.0 - [facility] 35.7 gm/dL [facility] LABORATORY Platelets 312 145 - 357 [facility] x10(3)/[facility] LABORATORY RDWSD 53.2 (H) 36.0 - [facility] LABORATORY RDWCV 16.0 (H) 11.4 - [facility] RYAN 13.8 % [facility] LABORATORY MPV 8.9 7.6 - 12.9 [facility] nRBC % Auto 0.0 % [facility] LABORATORY nRBC Abs Auto 0.000 0.000 - [facility] RYAN 0.000 [facility] x10(3)/[facility] LABORATORY Specimen Anatomical Collection Method Collection Time Receive d Time (Source) Location / / Volume Laterality Blood specimen 08/07/2017 7:30 AM 018 7:45 (specimen) EST AM EST Resulting Agency Comment Spec In Lab Yonathan Smith MD HEMATOLOGY ORDERABLES Performing Organization Address City/[facility]/ZIP [place] [address] (ABNORMAL) Basic Metabolic Panel (non-fasting) (08/07/2017 7:30 AM EST) athologist Signature Glucose Lvl 80 65 - 199 [facility] mg/dL [facility] LABORATORY Comment: Diabetes: >=200 mg/dL plus symp toms BUN 31 (H) 10 - 20 mg/dL [facility] LABORATORY Creatinine 1.22 0.80 - 1.50 mg/dL [facility] LABORATORY Sodium 140 135 - 145 mmol/L [facility] LABORATORY Potassium 4.5 3.5 - 5.0 mmol/L [facility] LABORATORY Comment: Please note: ??Patients with WBC >100,00 0 may have falsely elevated Potassium levels. ??For accurate Potassium quantif ication in these patients send serum separator tube (gold top) for subsequent determinations. ??Contact the Clinical Chemistry Laboratory if there are any qu estions. Chloride 99 98 - 107 mmol/L [facility] LABORATORY CO2 29 22 - 31 mmol/L [facility] LABORATORY Anion Gap 12 5 - 15 mmol/L [facility] LABORATORY Calcium 8.5 8.5 - 10.5 mg/dL [facility] LABORATORY Estimated GFR 59 (L) >=60 [facility] LABORATORY Comment: The reported eGFR should be multiplied b y 1.2 for patients. The MDRD is not an appropriate measure o f renal function for patients with body mass extremes or in patients with acute kidney failure. [email or web address] [email or web address]/[email or web address] Specimen Anatomical Collection Method Collection Time Receive d Time (Source) Location / / Volume Laterality Blood specimen 08/07/2017 7:30 AM 018 7:45 (specimen) EST AM EST Resulting Agency Comment Spec In Lab Yonathan Smith MD CHEMISTRY ORDERABLES Performing Organization Address City/[facility]/ZIP Code Phon e Number [place] [address] POCT Glucose (08/07/2017 7:27 AM EST) P athologist Signature POC Glucose 81 65 - 199 [facility] mg/dL [facility] LABORATORY Comment: Supplemental ranges: <140 mg/dL before meals <180 mg/dL all other times of the day Specimen Anatomical Collection Method Collection Time Receive d Time (Source) Location / / Volume Laterality Blood specimen 08/07/2017 7:27 AM 018 7:27 (specimen) EST AM EST Yonathan Smith MD POINT OF CARE TEST ORDERABLE S Performing Organization Address City/State/ZIP Code Phon e Number [address] APTT (08/07/2017 7:04 AM EST) athologist Signature PTT 34 25 - 35 sec [facility] LABORATORY Comment: The recommended therapeutic range for fu ll dose, unfractionated heparin at [facility] is 80 ? 114 seconds. The use [...] Organization Address City/State/[place] [address] (ABNORMAL) Prothrombin Time (08/07/2017 7:04 AM EST) athologist Signature PT 17.3 (H) 11.8 - 14.0 [facility] LABORATORY INR 1.4 (H) 0.9 - 1.1 [place] [...] [facility]/ZIP Code Phon e Number [address] POCT Glucose (08/07/2017 4:03 AM EST) athologist Signature POC Glucose 93 65 - 199 [place]YAN mg/dL [facility] LABORATORY Comment: Supplemental ranges: <140 mg/dL before meals <180 mg/dL all other times of the day Specimen Anatomical Collection Method Collection Time Receive d Time (Source) Location / / Volume Laterality Blood specimen 08/07/2017 4:03 AM 018 4:03 (specimen) EST AM EST Yonathan Smith MD POINT OF CARE TEST ORDERABLE S Performing Organization Address City/[facility]/ZIP Code Phon e Number [address] POCT Glucose (08/07/2017 12:04 AM EST) athologist Signature POC Glucose 107 65 - 199 [place]YAN mg/dL [facility] LABORATORY Comment: Supplemental ranges: <140 mg/dL before meals <180 mg/dL all other times of the day Specimen Anatomical Collection Method Collection Time Receive d Time (Source) Location / / Volume Laterality Blood specimen 08/07/2017 12:04 8 (specimen) AM EST 12:04 AM EST Yonathan Smith MD POINT OF CARE TEST ORDERABLE S Performing Organization Address City/[facility]/ZIP Code Phon e Number [address] POCT Glucose (08/06/2017 7:56 [...] Organization Address City/State/[place] [address] TcPO2 (08/06/2017 2:32 PM EST) Component Value Ref Test Analysis Performed At [facility] gist Range Method Time Signature VB Text Department: Vascular Surgery Lab VASCUBASE Report Patient: [id number] (GREGORY HOANG) CPT: [id number] ICD10: I99.8 Referring Physician: YONATHAN SMITH ?? [...] 15 Units 2009 (Given - Provider: Henrique Mraks, VAMSI) 2025 (Given - Provider: Mira Truong [...] 240 Gi 1213 (Given - Provider: Chiquis Mcgarth, RN - Comment: BG [phone] (Given - [...] Mira Truong, RN) 0800 (Given - Provider: Droy Truong RN) 8.6 mg, Oral, 2 TIMES [...] RN) 1400 (Dose confirmed - Provider: Chiquis Mcrgath RN ) Oral, EVERY 24 HOURS, First [...] rovider: Henrique Marks RN)0824 (Given - Provider: Cihquis Mcgrath, VAMSI)1135 (Given - Provider: Chiquis Mcgrath [...]
Routine documented in this encounter Care Teams Cultural Anthropology Professor Relationship Specialty Start Date End Date Lovely Vicente MD PCP - General 04/16/[address] [place] [address] [address] [place] [address] documented as of this encounter
--- OUTSIDE RECORDS SUMMARY | 2022-03-04 14:54 | XMS_ITS | Encounter Summary ---
:1945 Author Organization [employer] [place] [address] Care Team Providers Name Role Phone Lovely Vicente MD Primary Care Provider Reason for Visit Auth/Cert Specialty Diagnoses / Procedures Referred By Contact Refer red To Contact Diagnoses Critical lower limb ischemia CELLULITIS RT FOOT Procedures EMERGENCY Referral ID Status Reason Start Date Expiration Date Visits Requ ested Visits Authorized [id number] 1 1 Encounter Details Date Type Department Care Team Description 08/06/2017 Clinical Support [facility] Day at [facility] Ischemia of foot [facility] [place] [address] Social History Tobacco Use Types Packs/Day [...] noother symptoms except severe right foot pain. [facility] clinic called as pt on route [...] MD [facility] [address] TADE[address] [place], [place] [address] (Wo rk) 06/10/2022 Office Visit Dermatology Laura Scherer MD [facility] DR [address]-DERMAT OLOGY [place], [place] [address] (Wo rk) documented as of [...] 444 ms MUSE SYSTEM (Bezet) Calculated P [place] 44 degrees MUSE SYSTEM Calculated R [place] -31 degrees MUSE SYSTEM Calculated T [place] 106 degrees MUSE SYSTEM INTERPRETATION Normal sinus [...] disorder documented in this encounter Care Teams Secretarial Stenographer Relationship Specialty Start Date End Date Lovely Vicente MD PCP - General 04/16/[address] [place] [address] documented as of this encounter
--- OUTSIDE RECORDS SUMMARY | 2022-03-04 14:54 | XMS_ITS | Encounter Summary ---
:1945 Author Organization [facility] [place] [address] Care Team Providers Name Role Phone Lovely Vicente MD Primary Care Provider Encounter Details Date Type Department Care Team Description 08/06/2017 Orders Only Vascular Surgery at [facility] [place] APRN Ischemia of foot [facility] [place] [address] VASCULAR SURGERY [phone] [place], [place] [address] (Wo rk) Social History Tobacco [...] 03/26/2022 Office Visit Cardiology Vitaliy Nobles MD [facility] ER [address] [place], [place] [address] (Wo rk) 06/10/2022 Office Visit Dermatology Laura Scherer MD [facility] ER DR TEJA GR-DERMAT OLOGY [place], [place] [address] (Wo rk) documented as [...] 444 ms MUSE SYSTEM (Bezet) Calculated P [place] 44 degrees MUSE SYSTEM Calculated R [place] -31 degrees MUSE SYSTEM Calculated T [place] 106 degrees MUSE SYSTEM INTERPRETATION Normal sinus [...] Signature Prealbumin 19 (L) 20 - 40 [facility] mg[facility]dL [facility] LABORATORY Comment: Prealbumin levels are generally [...] Organization Address City/State/[place] [address] (ABNORMAL) Basic Metabolic Panel (non-fasting) (08/06/2017 12:32 PM EST) P athologist Signature Glucose Lvl 92 65 - [address] [facility] mg/dL [facility] LABORATORY Comment: Diabetes: [...] [facility] LABORATORY Estimated GFR 53 (L) >=60 [facility] LABORATORY Comment: The reported eGFR should be multiplied b y 1.2 for patients. The MDRD is not an appropriate measure o f renal function for patients with body mass extremes or in patients with acute kidney failure. http://ChiScan.Mytonomy/DHnkdep http://Huddle/DHMCnkf Specimen Anatomical Collection Method Collection Time Receive d Time (Source) Location / / Volume Laterality Blood specimen 08/06/2017 12:32 8 1:15 (specimen) PM EST PM EST Resulting Agency Comment Spec In Lab Arik Clement MD CHEMISTRY ORDERABLES Performing Organization Address City/State/ZIP [place] [address] (ABNORMAL) Hemogram (08/06/2017 12:32 PM EST) Analysis Performed At Patho logist Time Signature WBC 11.8 (H) 4.0 - 9.5 [facility] x10(3)/[facility] LABORATORY RBC 3.49 (L) 4.58 - [facility] 5.54 [facility] x10(6)/[facility] LABORATORY Hemoglobin 9.9 (L) 13.7 - [facility] 16.5 gm/dL [facility] LABORATORY Hematocrit 32.0 (L) 40.5 - [facility] 48.5 % [facility] LABORATORY MCV 91.7 82.9 - [facility] 93.1 [facility] LABORATORY MCH 28.4 27.5 - [facility] 32.1 pg [facility] LABORATORY MCHC 30.9 (L) 32.0 [facility] 35.7 gm/dL [facility] LABORATORY Platelets 326 145 - 357 [facility] x10(3)/[facility] LABORATORY RDWSD 53.4 (H) 36.0 - [facility] 45.0 [facility] LABORATORY RDWCV 16.0 (H) 11.4 - [facility] 13.8 % [facility] LABORATORY MPV 9.1 7.6 - 12.9 [facility] LABORATORY nRBC % Auto 0.0 % [facility] LABORATORY nRBC Abs Auto 0.000 0.000 - [facility] 0.000 [facility] x10(3)/[facility] LABORATORY Specimen Anatomical Collection Method Collection Time Receive d Time (Source) Location / / Volume Laterality Blood specimen 08/06/2017 12:32 8 1:15 (specimen) PM EST PM EST Resulting Agency Comment Spec In Lab Arik Clement MD HEMATOLOGY ORDERABLES Performing Organization Address City/State/ZIP [place] [address] documented in this encounter Visit Diagnoses Diagnosis Ischemia of foot Unspecified circulatory system disorder documented in this encounter Care Teams Genetic Coordinator Relationship Specialty Start Date End Date Lovely Vicente MD PCP - General 04/16/[address] [place] [address] documented as of this encounter
--- OUTSIDE RECORDS SUMMARY | 2022-03-04 14:54 | XMS_ITS | Encounter Summary ---
:1945 [place] [address] Care Team Providers Name Role Phone Lovely Vicente MD Primary Care Provider Encounter Details Date Type Department Care Team Description 08/04/2017 Orders Only Cardiac Surgery Makayla Wilson APRN [facility] Jorge [facility] [place] [address] CARDIAC SURGERY [phone] [place], [place] [address] (Wo rk) Social History Tobacco [...] [facility] [place] [address] (Wo rk) 06/10/2022 Office Visit Dermatology Laura Scherer MD [facility] DR TEJA GR-DERMAT OLOGY [place], [place] [address] (Wo rk) documented as of this encounter Visit Diagnoses Not on filedocumented in this encounter Care Teams Spray Gun Repairer Helper Relationship Specialty Start Date End Date Lovely Vicente MD PCP - General 04/16/15 [address] [place] [address] documented as of this encounter
--- OUTSIDE RECORDS SUMMARY | 2022-03-04 14:54 | XMS_ITS | Encounter Summary ---
:1945 Author Organization [facility] Address [facility] [place] [address] Care Team Providers Name Role Phone Lovely Vicente MD Primary Care Provider Reason for Visit Auth/Cert Specialty Diagnoses / Procedures Referred By Contact Refer red To Contact Diagnoses Critical lower limb ischemia CELLULITIS RT FOOT Procedures EMERGENCY Referral ID Status Reason Start Date Expiration Date Visits Requ ested Visits Authorized [id number] 1 1 Encounter Details Date Type Department Care Team Description 08/04/2017 Laboratory Lab 3L [place] Cardiomyopathy, unspecified type; Appointment [facility] Systolic congestive heart failure, unspecified congestive heart failure chronicity; Hospital Coronary artery rupture; [facility] Ischemic cardiomyopathy; Drive Atherosclerosis of the [place] co ronary artery, angina presence unspecified, unspecified whether the [place] or transplanted heart; [place], [place] Essential hyper tension, malignant; [id number] 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 PROTHROMBIN TIME Routine 08/04/2017 12:55 Coronary artery Resu lts for this PM EST rupture procedure are in Ischemic the results cardiomyopathy section. Atherosclerosis of the [place] coronary artery, angina presence unspecified, unspecified whether the [place] or transplanted heart URIC ACID [...] with the results diabetic section. nephropathy, unspecified medical terminologist insulin use status Essential hypertension, malignant COMPREHENSIVE Routine 08/04/2017 12:55 Essential Results fo r this METABOLIC PANEL PM EST hypertension, procedure a re in (NON-FASTING) malignant the results section. documented in this encounter Results Uric acid (08/04/2017 12:55 PM EST) P athologist Signature Uric Acid 7.1 3.5 - 8.5 [facility] mg/dL [facility] LABORATORY Specimen Anatomical Collection Method Collection Time Receive d Time (Source) Location / / Volume Laterality Blood specimen 08/04/2017 12:55 8 1:01 (specimen) PM EST PM EST Resulting Agency Comment Spec In Lab Lovely Vicente MD CHEMISTRY ORDERABLES Performing Organization Address City/State/[place] [address] (ABNORMAL) Hemogram (08/04/2017 12:55 PM EST) Analysis Performed At Patho logist Time Signature WBC 15.8 (H) 4.0 - 9.5 [facility] x[facility](3[facility] LABORATORY RBC 3.48 (L) 4.58 - [place] RYAN 5.54 [facility] x10(6)/[facility] LABORATORY Hemoglobin 9.9 (L) 13.7 - [facility] 16.5 gm/dL [facility] LABORATORY Hematocrit 31.4 (L) 40.5 - [facility] 48.5 % [facility] LABORATORY MCV 90.2 82.9 - [facility] 93.1 [facility] LABORATORY MCH 28.4 27.5 - [place] 32.1 pg [facility] LABORATORY MCHC 31.5 (L) 32.0 - [facility] 35.7 gm/dL [facility] LABORATORY Platelets 310 145 - 357 [facility] x10(3)/[facility] LABORATORY RDWSD 51.8 (H) 36.0 - [facility] 45.0 [facility] LABORATORY RDWCV 15.8 (H) 11.4 - [facility] 13.8 % [facility] LABORATORY MPV 8.9 7.6 - 12.9 [facility] LABORATORY nRBC % Auto 0.0 % [facility] LABORATORY nRBC Abs Auto 0.000 0.000 - [facility] 0.000 [facility] x10(3)/[facility] LABORATORY Specimen Anatomical Collection Method Collection Time Receive d Time (Source) Location / / Volume Laterality Blood specimen 08/04/2017 12:55 8 1:01 (specimen) PM EST PM EST Resulting Agency Comment Spec In Lab Lovely Vicente MD HEMATOLOGY ORDERABLES Performing Organization Address City/State/[place] [address] (ABNORMAL) Comprehensive metabolic panel (non-fasting) (08/04/2017 12:55 PM EST) P athologist Signature Glucose Lvl 208 (H) 65 - 199 [facility] mg/dL [facility] LABORATORY Comment: Diabetes: >=200 mg/dL plus symp toms BUN 32 (H) 10 - 20 mg/dL [facility] LABORATORY Creatinine 1.58 (H) 0.80 - 1.50 mg/dL [facility] [...] Chloride 97 (L) 98 - 107 mmol/L [facility] LABORATORY CO2 25 22 - 31 mmol/L [facility] LABORATORY Anion Gap 14 5 - 15 mmol/L [facility] LABORATORY Calcium 8.6 8.5 - 10.5 mg/dL [facility] LABORATORY Total Protein 6.9 6.1 - 8.0 gm/dL [facility] LABORATORY Albumin 3.4 3.2 - 5.2 gm/dL [facility] LABORATORY AST 20 0 - 39 unit/L [facility] LABORATORY ALT 21 0 - 55 unit/L [facility] LABORATORY Alk Phos 93 40 - 120 unit/L [facility] LABORATORY Total Bilirubin 0.4 0.2 - 1.3 mg/dL [facility] LABORATORY Estimated GFR 43 (L) >=60 [facility] LABORATORY Comment: The reported eGFR should be multiplied b y 1.2 for patients. The MDRD is not an appropriate measure o f renal function for patients with body mass extremes or in patients with acute kidney failure. http://Comply Serve.Collaborative Software Initiative/DHnkdep http://Comply Serve.Collaborative Software Initiative/DHMCnkf Specimen Anatomical Collection Method Collection Time Receive d Time (Source) Location / / Volume Laterality Blood specimen 08/04/2017 12:55 8 1:01 (specimen) PM EST PM EST Resulting Agency Comment Spec In Lab Lovely Vicente MD CHEMISTRY ORDERABLES Performing Organization Address City/State/[place] [address] (ABNORMAL) Hemoglobin A1c (08/04/2017 12:55 PM EST) Analysis Performed At [facility] Time Signature Hemoglobin A1C 6.2 (H) 4.3 - 5.6 [facility] Comment: Reference Range: 4.3 - [...] Mellitus, Diabetes Care 2013; 36: Suppl. 1, O67-40 Est Avg Gluc See note mg/dL [facility] Comment: Estimated Average Glucose not appropriat [...] into estimated average glucose values. ??Diabetes Care 2008:31(8):4772-8586. Specimen Anatomical Collection Method Collection Time Receive d Time (Source) Location / / Volume Laterality Blood specimen 08/04/2017 12:55 8 1:01 (specimen) PM EST PM EST Resulting Agency Comment Spec In Lab Lovely Vicente MD CHEMISTRY ORDERABLES Performing Organization Address City/[facility]/ZIP [place] [address] (ABNORMAL) Prothrombin Time (08/04/2017 12:55 PM EST) P athologist Signature PT 35.4 (H) 11.8 - 14.0 [facility] LABORATORY INR 3.5 (H) 0.9 - 1.1 [facility] [...] Vicente MD HEMATOLOGY ORDERABLES Performing Organization Address City/[facility]/ZIP [place] [address] (ABNORMAL) pro-Brain Natriuretic Peptide (08/04/2017 12:55 PM EST) P athologist Signature ProBNP 3,133 (H) <=125 [facility] pg/mL [facility] LABORATORY Specimen Anatomical Collection Method Collection Time Receive d Time (Source) Location / / Volume Laterality Blood specimen 08/04/2017 12:55 8 1:01 (specimen) PM EST PM EST Resulting Agency Comment Spec In Lab Danette Maxwell APRN CHEMISTRY ORDERABLES Performing Organization Address City/[facility]/[place] [address] documented in this encounter Visit Diagnoses Diagnosis Cardiomyopathy, unspecified type Systolic congestive heart failure, unspe cified congestive heart failure chronicity Coronary artery rupture Acute myocardial infarction, unspecified site, episode of care unspecified Ischemic cardiomyopathy Other specified forms of chronic ischemi c heart disease Atherosclerosis of the [place] coronary arter y, angina presence unspecified, unspecified whether the [place] or transplanted heart Essential hypertension, malignant Diabetes mellitus due to underlying cond ition with diabetic nephropathy, unspecified medical terminologist insulin use status documented in this encounter Care Teams Paymaster Of Purses Relationship Specialty Start Date End Date Lovely Vicente MD PCP - General 04/16/[address] [place] [address] documented as of this encounter
--- OUTSIDE RECORDS SUMMARY | 2022-03-04 14:54 | XMS_ITS | Encounter Summary ---
:1945 [place] [address] Care Team Providers Name Role Phone Lovely Vicente MD Primary Care Provider Encounter Details Date Type Department Care Team Description 08/04/2017 Orders Only Cardiac Surgery Makayla Wilson APRN [facility] Jorge [facility] [place] [address] CARDIAC SURGERY [phone] [place], [place] [address] (Wo rk) Social History Tobacco [...] Nobles MD [facility] ER DR [place]LE [place], [place] [address] (Wo rk) 06/10/2022 Office Visit Dermatology Laura Scherer [facility] [address] TEJA GR-DERMAT OLOGY [place], [place] [address] (Wo rk) documented as of this encounter Visit Diagnoses Not on filedocumented in this encounter Care Teams Hogshead Opener Relationship Specialty Start Date End Date Lovely Vicente MD PCP - General 04/16/15 [address] [place] [address] documented as of this encounter
--- OUTSIDE RECORDS SUMMARY | 2022-03-04 14:54 | XMS_ITS | Encounter Summary ---
:1945 Author Organization [facility] [place] [address] Care Team Providers Name Role Phone Lovely Vicente MD Primary Care Provider Encounter Details Date Type Department Care Team Description 08/04/2017 Notes Only Cardiac Surgery Makayla Wilson APRN [facility] [place] [address] CARDIAC SURGERY [phone] [place] [id number] (Wo rk) Social History Tobacco Use Types [...] Nobles MD [facility] ER CARDIOLOGY [place], [place] [address] (Wo rk) 06/10/2022 Office Visit Dermatology Laura Scherer MD [facility] DR TEJA GR-DERMAT [place], [place] [address] (Wo rk) documented as of this encounter Visit Diagnoses Not on filedocumented in this encounter Care Teams Building Architect Relationship Specialty Start Date End Date Lovely Vicente MD PCP - General 04/16/[address] [place] [address] documented as of this encounter
--- OUTSIDE RECORDS SUMMARY | 2022-03-04 14:54 | XMS_ITS | Encounter Summary ---
:1945 [place] [address] Care Team Providers Name Role Phone Lovely Vicente MD Primary Care Provider Encounter Details Date Type Department Care Team Description 08/05/2017 Notes Only [facility] [place] Msos, STACIE [facility] [place] [address] VASCULAR SURGERY [phone] [place], [place] [address] (Wo rk) Social History Tobacco [...] Visit Cardiology Vitaliy Nobles MD [facility] ER DR TADEO [place], [place] [address] (Wo rk) 06/10/2022 Office Visit Dermatology Laura Scherer MD [facility] DR TEJA GR-DERMAT [place], [place] [address] (Wo rk) documented as of this encounter Visit Diagnoses Not on filedocumented in this encounter Care Teams Soil Scientist Relationship Specialty Start Date End Date Lovely Vicente MD PCP - General 04/16/[address] [place] [address] documented as of this encounter
--- OUTSIDE RECORDS SUMMARY | 2022-03-04 14:54 | XMS_ITS | Encounter Summary ---
:1945 Author Organization [facility] [place] [address] Care Team Providers Name Role Phone Lovely Vicente MD Primary Care Provider Reason for Visit Reason Comments Foot Ulcer WOUND CHECK Auth/Cert Specialty Diagnoses / Procedures Referred By Contact Refer red To Contact Diagnoses Critical lower limb ischemia CELLULITIS RT FOOT Procedures EMERGENCY Referral ID Status Reason Start Date Expiration Date Visits Requ ested Visits Authorized [id number] 1 1 Encounter Details Date Type Department Care Team Description 08/06/2017 [facility] lower limb [facility] [address] [place], [place] VASCULAR SURGERY [id number] [place] [address] [phone] Social History Tobacco Use Types Packs/Day Years [...] Smith MD - 08/06/2017 1:00 PM EST [facility] staff: 1. RIGHT leg CLI Interval Hx: [...] Cardiology Vitaliy Nobles MD [facility] CARDIOLOGY [place], [place] [address] (Wo rk) 06/10/2022 Office Visit Dermatology Laura Scherer MD [facility] DR TEJA GR-DERMAT [place], [place] [address] (Wo rk) documented as of this encounter Visit Diagnoses Diagnosis Critical lower limb ischemia Unspecified circulatory system disorder documented in this encounter Care Teams Validation Leader Relationship Specialty Start Date End Date Lovely Vicente MD PCP - General 04/16/[address] [place] [address] documented as of this encounter
--- OUTSIDE RECORDS SUMMARY | 2022-03-04 14:54 | XMS_ITS | Encounter Summary ---
:1945 Author Organization [facility] [place] [address] Care Team Providers Name Role Phone Lovely Vicente MD Primary Care Provider Reason for Visit Auth/Cert Specialty Diagnoses / Procedures Referred By Contact Refer red To Contact Diagnoses Critical lower limb ischemia CELLULITIS RT FOOT Procedures EMERGENCY Referral ID Status Reason Start Date Expiration Date Visits Requ ested Visits Authorized [id number] 1 1 Encounter Details Date Type Department Care Team Description 08/06/2017 Hospital [facility] [address] Social History Tobacco Use Types Packs/Day [...] Nobles MD [facility] CARDIOLOGY [place], [place] [address] (Wo rk) 06/10/2022 Office Visit Dermatology Laura Scherer MD [facility] DR TEJA GR-DERMAT [facility] [place], [place] [address] (Wo rk) documented as of this encounter Visit Diagnoses Not on filedocumented in this encounter Care Teams Corporate Representative Relationship Specialty Start Date End Date Lovely Vicente MD PCP - General 04/16/[address] [place] [address] documented as of this encounter
--- OUTSIDE RECORDS SUMMARY | 2022-03-04 14:55 | XMS_ITS | Encounter Summary ---
:1945 [place] [address] Care Team Providers Name Role Phone Lovely Vicente MD Primary Care Provider Encounter Details Date Type Department Care Team Description 08/03/2017 Hospital Encounter Radiology Library at [place], Tommy Mijares [facility] [place] [address] VASCULAR SURGERY [phone] [place], [place] [address] (Wo rk) Social History [...] Nobles MD [facility] CARDIOLOGY [place], [place] [address] ( rk) 06/10/2022 Office Visit Dermatology Laura Scherer MD [facility] DR TEJA GR-DERMAT [place], [place] [address] (Wo rk) documented as [...] City/State/ZIP Code Phon e Number [facility] [place], [place] documented in this encounter Visit Diagnoses Diagnosis Pain Generalized pain documented in this encounter Care Teams Chicken Dresser Relationship Specialty Start Date End Date Lovely Vicente MD PCP - General 04/16/[address] [place] [address] documented as of this encounter
--- OUTSIDE RECORDS SUMMARY | 2022-03-04 14:55 | XMS_ITS | Encounter Summary ---
:1945 Author Organization [facility] [place] [address] Care Team Providers Name Role Phone Lovely Vicente MD Primary Care Provider Reason for Visit Reason Comments Deep Vein Thrombosis Auth/Cert Specialty Diagnoses / Procedures Referred By Contact Refer red To Contact Diagnoses Critical lower limb ischemia CELLULITIS RT FOOT Procedures EMERGENCY Referral ID Status Reason Start Date Expiration Date Visits Requ ested Visits Authorized [id number] 1 1 Encounter Details Date Type Department Care Team Description 08/04/2017 Office Visit Vascular Surgery at [facility] itical lower limb [facility] ischemia [facility] [address] [place], [place] VASCULAR SURGERY [id number] [place] [address] [phone] Social History Tobacco Use Types Packs/Day Years [...] was discharged on Coumadin. ??He presented to [facility] on 07/20 with mottled toes on the [...] Vitaliy Nobles MD [facility] [address] [place], [place] [address] (Wo rk) 06/10/2022 Office Visit Dermatology Laura Scherer MD [facility] DR TEJA GR-DERMAT [place], [place] [address] (Wo rk) documented as of this encounter Visit Diagnoses Diagnosis Critical lower limb ischemia Unspecified circulatory system disorder documented in this encounter Care Teams Engraver Signature Relationship Specialty Start Date End Date Lovely Vicente MD PCP - General 04/16/[address] [place] [address] documented as of this encounter
--- OUTSIDE RECORDS SUMMARY | 2022-03-04 14:55 | XMS_ITS | Encounter Summary ---
:1945 [place] [address] Care Team Providers Name Role Phone Lovely Vicente MD Primary Care Provider Reason for Visit Reason Comments Hospital Transfer cold foot post CABG Auth/Cert Specialty Diagnoses / Procedures Referred By Contact Refer red To Contact Diagnoses Critical lower limb ischemia Procedures NAYE IPI Referral ID Status Reason Start Date Expiration Date Visits Requ ested Visits Authorized [id number] 1 1 Encounter Details Date Type Department Care Team Description 07/20/2017 Hospital Encounter 4 Herminia Ibarra MD [facility] [place] [address] Critical lower limb [facility] Arik Clement MD [facility] [place] [place] [address] [place] [address] Social History Tobacco Use Types Packs/Day Years [...] home. Important Studies and Lab Data: Labs: [facility] Results Component Value Date INR 1.5 [...] For any problems or questions please call [phone] ZELDA Smith, entry level automotive technician Nurse Clinician For issues on weeknights after 5pm and weekends please call [phone] and ask for the Vascular Fellow suppression crew leader. General Instructions None Future Appointments and Orders Future Appointments Provider Department Dept Phone 08/04/2017 1:00 PM Daniele Mooney [place] Vascular Lab at [place] [phone] 08/04/2017 2:15 PM Arik Clement MD Vascular Surgery at [place] [phone] 09/07/2017 3:00 PM MAYRA CHACON Lab [facility] [phone] 09/07/2017 4:00 PM Luz Prescott MD Endocrinology at [place] [phone] Future Orders Complete By Expires Arterial Duplex Leg, Unil [VAS32 Custom] 07/27/2017 (Approximate) 01/26/2018 Process Instructions: There is no in-house vascular laboratory technology teacher available on weeknights (5pm-8am), weekends, or holidays. IF THIS IS A REQUEST FOR AN EMERGENT STUDY DURING THOSE HOURS, please have the senior provider responsible for the patient page the Vascular Surgery Fellow/Senior Resident suppression crew leader to discuss options. Scheduling Instructions: Questions: Indication for study/signs & symptoms: Right femoral PSA s/p cardiac cath Question to be answered: bloodflow to PSA Laterality: Right Is there a RIGHT LOWER EXTREMITY graft?: No Lower limb right segments: Common Femoral Is there a stent?: No At which location will this be performed?: [place] Referral to Home Health - at DISCHARGE [[id number] CPT(R)] As directed Process Instructions: Scheduling Instructions: Comments: DOCUMENTATION FOR VNA SERVICES (INCLUDING THOSE PATIENTS WITH MEDICARE COVERAGE REQUIRING HOME VNA SERVICES AND/OR HOSPICE SERVICES) PATIENT'S LOCATION: Gregory Fatima [address] [place] [address] [place] [id number] (home) Cell: Telephone Information: Industrial Sales Manager's Name: self In discussion with the attending physician, it is certified that this patient is under their care and that they, or a Nurse Practitioner,Clinical Nurse specialist or Physician Pharmacy Messenger who is working directly with them, had [...] CARE AGENCY: [facility] ([facility] [place] [facility]-is in [place] PHONE: [phone] FAX: [phone] Start of care: 24- 48 hours FOR [...] patient'sPCP: Lovely Vicente MD [address] [facility] [place] / [place] [id number] All VNA agencies which cover the area [...] For any problems or questions please call [phone] ZELDA Smith, entry level automotive technician Nurse Clinician For issues on weeknights after 5pm and weekends please call [phone] and ask for the Vascular Fellow suppression crew leader. documented in this encounter Medications at Time [...] RN - 07/20/2017 2:53 PM EST The patient/business services representative has been provided a list of Home Health Agencies/DME vendors which serve their preferred geographic area. A letter describing our affiliations was reviewed with them and theywere educated about their right to choose where referrals are placed. Patient requests referral to [facility] [email or web address]. PHONE: [phone] FAX: [phone]. Expected date of discharge: 07/20/2017 . Referral routed to the Copyright Clerk for matching with agency/vendor and to provide any required information. Naty Pulliam RN - 07/20/2017 11:37 AM EST The patient/business services representative has been provided a list of Home Health Agencies/DME vendors which serve their preferred geographic area. A letter describing our affiliations was reviewed with them and theywere educated about their right to choose where referrals are placed. Patient requests referral to [facility] ([facility] [place] [facility]- is in [place] PHONE: [phone] FAX: [phone]. Expected date of discharge: 07/20/2017 . Referral routed to the Copyright Clerk for matching with agency/vendor and to provide any required information. Katina Pulliam RNcopy chief Janneth Lee MD - 07/20/2017 7:29 AM [...] MD at [facility] Functional Status/Social Hx: Social [...] PMH of hypertension, hyperlipidemia, DM 2, MARIA VICOTRIA on CPAP who was admitted 06/25/17 with [...] -ISS -pain control Discussed with Vascular Fellow suppression crew leader. Chris Valadez MD PGY2 Pager [phone] documented in this encounter ED Notes Annita Reaves MD - 07/20/2017 3:15 PM EST Emergency Department Gregory Fatima is a 72 y.o. male who presents to [facility] with arterial thrombosis. History of Present Illness [...] Hospitalizations Within the Past 30 Days: [facility] 07/05/17 Anticipated Length Of Stay (If known): [...] Health/Prescription Coverage: Primary Insurance: MEDICARE Secondary Insurance: De[facility]os [facility] Prescription Coverage: See above Preferred Pharmacy: [facility] Other: N/A Primary Care Provider: Lovely Vicente MD [phone] Patient/Caregiver Goals of Treatment: Patient plans to return home when medically ready Potential Needs for Transition of Care: Rehab/SNF: N/A Home Health: [facility] ([facility] [place] [facility]-is in [place] PHONE: [phone] FAX: [phone] DME: N/A Dialysis: N/A Community Resources: N/A Transportation: Patient family will transport Other: N/A Anticipated Barriers to Discharge/Special Considerations: None Plan: Patient plans to return home with home health services when medically ready A member of the Care Management team will continue to monitor progress, follow for continuity of care and assist with transition of care planning. Naty Pulliam RN Pager: [phone] ED Triage - Rayna Weir RN - 07/20/2017 12:28 AM EST Pt transferred from [place] for blue right foot and painful toes. [...] Nobles MD [facility] [address] [place], [place] [address] ([facility]) 06/10/2022 Office Visit Dermatology Laura Scherer MD [facility] DR TEJA GR-DERMAT [place], [place] [address] ([facility]) documented as of this encounter Procedures Procedure Name Priority Date/Time Associated Comments Diagnosis UNDERWEAR FINISHER SCAN 09/02/2017 12:00 Res ults for this [...] LAB EST procedure are i n ([facility]) the results section. APTT STAT 07/20/2017 2:25 AM Results f or this EST procedure are i n the results section. PROTHROMBIN TIME STAT 07/20/2017 2:25 AM Resul ts for this EST procedure are i n the results section. BASIC METABOLIC PANEL STAT 07/20/2017 2:25 AM Results for this (NON-FASTING) EST procedure are in the results section. documented in this encounter Results SCAN DOC: UNDERWEAR FINISHER (09/02/2017 12:00 AM EST) Narrative 09/02/2017 12:00 AM EST This result has an attachment that is no t available. Ordered by an unspecified provider. Scanning Provider MEDIA MGR SCAN EXT ORDR/RSLT POCT Glucose (07/20/2017 12:04 PM EST) P athologist Signature POC Glucose 189 65 - 199 [facility] mg/dL [facility] Comment: Supplemental ranges: <140 mg/dL before meals <180 mg/dL all other times of the day Specimen Anatomical Collection Method Collection Time Receive d Time (Source) Location / / Volume Laterality Blood specimen 07/20/2017 12:04 7 (specimen) PM EST 12:04 PM EST Arik Clement MD POINT OF CARE TEST ORDERABLE S Performing Organization Address City/State/ZIP Code Phon e Number [address] (ABNORMAL) Differential, Automated (07/20/2017 10:34 AM EST) [facility] Method Time Signature Neutrophils % 84.3 % [facility] Neutr Abs (ANC) 14.27 (H) 1.70 - [facility] 6.10 [facility] x10(3)/[facility] LABORATORY Lymphocytes % 5.6 % [facility] Lymphocytes Abs 1.0 0.9 - 3.2 [facility] x10(3)/[facility] LABORATORY Monocytes % 6.1 % [facility] Monocyte Abs 1.0 (H) 0.3 - 0.9 [facility] x10(3)/[facility] LABORATORY Eosinophils % 2.4 % [facility] Eosinophils Abs 0.4 0.0 - 0.4 [facility] x10(3)/[facility] LABORATORY Basophils % 0.5 % [facility] Basophils Abs 0.1 0.0 - 0.1 [facility] x10(3)/[facility] LABORATORY Immature Gran % 1.10 % [facility] Comment: Immature [...] Clement MD HEMATOLOGY ORDERABLES Performing Organization Address City/[facility]/[place] [address] (ABNORMAL) Hemogram (07/20/2017 10:34 AM EST) Analysis Performed At Patho logist Time Signature WBC 17.0 (H) 4.0 - 9.5 [facility] x10(3)/[facility] LABORATORY RBC 3.70 (L) 4.58 - [facility] 5.54 [facility] x10(6)/[facility] LABORATORY Hemoglobin 10.8 (L) 13.7 - [facility] 16.5 gm/dL [facility] Hematocrit 33.4 (L) 40.5 - [facility] 48.5 % [facility] MCV 90.3 82.9 - [facility] 93.1 [facility] LABORATORY MCH 29.2 27.5 - [facility] 32.1 pg [facility] MCHC 32.3 32.0 - [facility] 35[facility] gm/dL [facility] Platelets 211 145 - 357 [facility] x10(3)/[facility] LABORATORY RDWSD 49.1 (H) 36.0 - [facility] 45.0 [facility] LABORATORY RDWCV 14.7 (H) 11.4 - [facility] 13.8 % [facility] MPV 9.2 7.6 - 12.9 [facility] LABORATORY nRBC % Auto 0.0 % [facility] nRBC Abs Auto 0.000 0.000 - [facility] 0.000 [facility] x10(3)/[facility] LABORATORY Specimen Anatomical Collection Method Collection Time Receive d Time (Source) Location / / Volume Laterality Blood specimen 07/20/2017 10:34 7 (specimen) AM EST 10:39 AM EST Resulting Agency Comment Spec In Lab Arik Clement MD HEMATOLOGY ORDERABLES Performing Organization Address City/State/[place] [address] (ABNORMAL) APTT (07/20/2017 10:34 AM EST) P athologist Signature PTT 79 (H) 25 - 35 sec [facility] [...] Clement MD HEMATOLOGY ORDERABLES Performing Organization Address City/[facility]/ZIP Code Phon e Number [address] POCT Glucose (07/20/2017 7:41 AM EST) P athologist Signature POC Glucose 174 65 - 199 [facility] mg/dL [facility] Comment: Supplemental ranges: <140 mg/dL before meals <180 mg/dL all other times of the day Specimen Anatomical Collection Method Collection Time Receive d Time (Source) Location / / Volume Laterality Blood specimen 07/20/2017 7:41 AM 017 7:41 (specimen) EST AM EST Arik Clement MD POINT OF CARE TEST ORDERABLE S Performing Organization Address City/State/ZIP Code Phon e Number [address] JULIAN, legs, multiple levels (07/20/2017 7:33 AM EST) Component Value Ref Test Analysis Performed At Patholo gist Range Method Time Signature VB Text Department: Vascular Surgery Lab VASCUBASE Report Patient: [id number] (GREGORY FATIMA) CPT: 81729 ICD10: I75.021;I99.8 Referring Physician: ARIK CLEMENT ?? [...] Department: Vascular Surgery Lab VASCUBASE Report Patient: [id number] (GREGORY FATIMA) CPT: 54358 ICD10: I97.610;I99.8 Referring Physician: ARIK CLEMENT ?? [...] Signature POC Glucose 199 65 - 199 [facility] mg/dL [facility] Comment: Supplemental ranges: <140 mg/dL before meals <180 mg/dL all other times of the day Specimen Anatomical Collection Method Collection Time Receive d Time (Source) Location / / Volume Laterality Blood specimen 07/20/2017 3:41 AM 017 3:41 (specimen) EST AM EST Arik Clement MD POINT OF CARE TEST ORDERABLE S Performing Organization Address City/State/[place] [address] Lactate, whole blood, send to lab (Leb/CGP) (07/20/2017 2:25 AM EST) athologist Signature Lactate WB 2.0 0.5 - 2.2 [facility] mmol/L [facility] Specimen Anatomical Collection Method Collection Time Receive d Time (Source) Location / / Volume Laterality Blood specimen Venous Draw / 07/20/2017 2:25 AM 2016 2:37 (specimen) Unknown EST AM EST Resulting Agency Comment Spec In Lab Zulma Samuel MD CHEMISTRY ORDERABLES Performing Organization Address City/State/[place] [address] (ABNORMAL) APTT (07/20/2017 2:25 AM EST) P athologist Signature PTT 36 (H) 25 - 35 sec [facility] [...] Organization Address City/State/[place] [address] (ABNORMAL) Prothrombin Time (07/20/2017 2:25 AM EST) P athologist Signature PT 17.7 (H) 11.8 - 14.0 [facility] [...] Organization Address City/State/[place] [address] (ABNORMAL) Basic Metabolic Panel (non-fasting) (07/20/2017 2:25 AM EST) athologist Signature Glucose Lvl 187 65 - 199 [facility] mg/dL [facility] Comment: Diabetes: >=200 mg/dL plus symp toms BUN 35 (H) 10 - 20 mg/dL [facility] Creatinine 1.51 (H) 0.80 - 1.50 mg/dL [facility] Sodium 134 (L) 135 - 145 mmol/L [facility] Potassium Not Perf 3.5 - 5.0 mmol/L [facility] Comment: Specimen hemolyzed. Called by: [facility], Read back by: Chitra Orantes, Date/Time:07/20/17 03:05. Please note: ??Patients with WBC >100,00 0 may have falsely elevated Potassium levels. ??For accurate Potassium quantif ication in these patients send serum separator tube (gold top) for subsequent determinations. ??Contact the Clinical Chemistry Laboratory if there are any qu estions. Chloride 92 (L) 98 - 107 mmol/L [facility] CO2 29 22 - 31 mmol/L [facility] Anion Gap 13 5 - 15 mmol/L [facility] Calcium 8.6 8.5 - 10.5 mg/dL [facility] Estimated GFR 46 (L) >=60 [facility] Comment: The reported eGFR should be multiplied b y 1.2 for patients. The MDRD is not an appropriate measure o f renal function for patients with body mass extremes or in patients with acute kidney failure. http://Lecere/DHnkdep http://Lecere/DHMCnkf Specimen Anatomical Collection Method Collection Time Receive d Time (Source) Location / / Volume Laterality Blood specimen 07/20/2017 2:25 AM 017 2:33 (specimen) EST AM EST Resulting Agency Comment Spec In Lab Annita Reaves MD CHEMISTRY ORDERABLES Performing Organization Address City/State/ZIP Code [place] [address] documented in this encounter [...] Group 2) 0-8,000 Units, Intravenous, BOLUS PER [facility] PROTOCOL, Starting Wed07/20/17 at 0424, Until [...]
Routine documented in this encounter Care Teams Dial Painter Relationship Specialty Start Date End Date Lovely Vicente MD PCP - General 04/16/[address] [place] [address] documented as of this encounter
--- OUTSIDE RECORDS SUMMARY | 2022-03-04 14:55 | XMS_ITS | Encounter Summary ---
:1945 Author Organization [facility] [place] [address] Care Team Providers Name Role Phone Lovely Vicente MD Primary Care Provider Reason for Visit Reason Onset Date Comments Other 07/22/2017 lovenox bridge Encounter Details Date Type Department Care Team Description 07/22/2017 Telephone Cardiology at [facility] Court Cadena RN Other (lovenox bridge) [place] [phone] Social History Tobacco Use Types Packs/Day [...] 4:49 PM EST VAMSI Del Castillo, at [facility], called earlier today with a question re: lovenox bridge for this patient who was recently discharged from [facility] r/t a blood clot. Discharge note faxed to [facility] (fax# [phone], Ph#: [phone]) which contains instructions r/t lovenox bridge as follows: Anticoagulation: on lovenox bridge to therapeutic coumadin for AFib. Goal INR 2-3. At discharge INR=1.5. The lovenox injections can stop when INR >2, coumadin will continue indefinitely. documented in this encounter Plan of Treatment Upcoming Encounters Date Type Specialty Care Team Description 03/26/2022 Office Visit Cardiology Vitaliy Nobles MD [facility] [address] [place], [place] [address] (Wo rk) 06/10/2022 Office Visit Dermatology Laura Scherer MD [facility] DR TEJA GR-DERMAT [facility] [address] (Wo rk) documented as of this encounter Visit Diagnoses Not on filedocumented in this encounter Care Teams Geophysical Computer Relationship Specialty Start Date End Date Lovely Vicente MD PCP - General 04/16/[address] [place] [address] documented as of this encounter
--- OUTSIDE RECORDS SUMMARY | 2022-03-04 14:55 | XMS_ITS | Encounter Summary ---
:1945 Author Organization [facility] [place] [address] Care Team Providers Name Role Phone Lovely Vicente MD Primary Care Provider Reason for Visit Reason Comments Pain Management Ankle Pain Toe Pain Encounter Details Date Type Department Care Team Description 07/30/2017 Office Visit Pain Management at Barbra Soares, Per ipheral neuropathy [place] COST ACCOUNTING CLERK due to ischemia [facility] [address], [place], [place] [phone] Social History Tobacco Use Types Packs/Day Years [...] APRN - 07/30/2017 1:45 PM EST [facility] [place] [address] Phone: PAIN MANAGEMENT NEW PATIENT / CONSULTATION NOTE DATE OF VISIT 07/30/2017 Patient Don Fatima 1945 REFERRING PROVIDER Lovely Vicente MD [address] [place] [address] PRIMARY CARE PROVIDER Lovely Vicente MD CHIEF [...] much relief PAST THERAPIES: Nothing MEDICATIONS The [place] Prescription Monitoring Program was checked and no [...] 33.75) performed by Yuan Retana MD at [facility] OR ??? PRO CABG, ARTERY-VEIN, TWO N/A 07/07/2017 @CABG, TWO VENOUS GRAFTS & ARTERIAL GRAFT (WRVU 7.93) performed by Yuan Retana MD at [facility] OR ??? PRO COLONOSCOPY, REMV LESN, SNARE 01/16/2014 COLONOSCOPY, POLYPECTOMY, REMOVAL LESION BY SNARE performed by Nohemi Jaimes MD at [facility] ENDOSCOPY ??? PRO ENDOSCOPY W/VIDEO-ASST VEIN HARVEST, CABG Right 07/07/2017 ENDOSCOPIC HARVEST VEIN(S) FOR CABG (WRVU 0.31) performed by Yuan Retana MD at [facility] [...] referral, Lovely Vicente MD [address] [place] [id number]. 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
--- OUTSIDE RECORDS SUMMARY | 2022-03-04 14:55 | XMS_ITS | Encounter Summary ---
:1945 [place] [address] Care Team Providers Name Role Phone Lovely Vicente MD Primary Care Provider Encounter Details Date Type Department Care Team Description 07/29/2017 Telephone Pain Aurelia Crawford MD [facility] [place] [address] PAIN CLINIC [phone] [place], [place] [address] (Wo rk) Social History Tobacco [...] Nobles MD [facility] CARDIOLOGY [place], [place] [address] (Wo rk) 06/10/2022 Office Visit Dermatology Laura Scherer MD [facility] [address] [place], [place] [address] (Wo rk) documented as of this encounter Visit Diagnoses Not on filedocumented in this encounter Care Teams Solar Installation Helper Relationship Specialty Start Date End Date Lovely Vicente MD PCP - General 04/16/15 [facility] [address] [place] [address] documented as of this encounter
--- OUTSIDE RECORDS SUMMARY | 2022-03-04 14:55 | XMS_ITS | Encounter Summary ---
:1945 [place] [address] Care Team Providers Name Role Phone Lovely Vicente MD Primary Care Provider Encounter Details Date Type Department Care Team Description 07/29/2017 Hospital Encounter Vascular Lab at Critic monica Huber lower limb [facility] [place] [phone] Social History Tobacco Use Types Packs/Day Years [...] MD [facility] [address] [place], [place] [address] (Wo rk) 06/10/2022 Office Visit Dermatology Laura Scherer MD [facility] [address] [place], [place] [address] (Wo rk) documented as of this encounter Visit Diagnoses Diagnosis Critical lower limb ischemia Unspecified circulatory system disorder documented in this encounter Care Teams Torpedo Shooter Relationship Specialty Start Date End Date Lovely Vicente MD PCP - General 04/16/[address] [place] [address] documented as of this encounter
--- OUTSIDE RECORDS SUMMARY | 2022-03-04 14:55 | XMS_ITS | Encounter Summary ---
:1945 Author Organization [facility] [place] [address] Care Team Providers Name Role Phone Lovely Vicente MD Primary Care Provider Reason for Visit Reason Comments Follow-up Encounter Details Date Type Department Care Team Description 07/29/2017 Office Visit Cardiac Surgery at [facility] Yuan Retana MD S/P CABG x [address] [facility] [place] [address] CARDIOTHORACIC SURGERY [phone] [place], [place] [address] (Wo rk) Social History Tobacco [...] EST To: MD Lovely Steven MD Re: oDn Fatima ( 1945) Dear Garland and Lovely, [...] evaluation by vascular surgery. Yuan Retana MD [phone] documented in this encounter Plan of Treatment Upcoming Encounters Date Type Specialty Care Team Description 03/26/2022 Office Visit Cardiology Vitaliy Nobles MD [facility] [address] [place], [place] [address] (Wo rk) 06/10/2022 Office Visit Dermatology Laura Scherer MD [facility] [address] [place], [place] [address] (Wo rk) documented as of this encounter Visit Diagnoses Diagnosis S/P CABG x 3 Postsurgical aortocoronary bypass status documented in this encounter Care Teams Glove Former Relationship Specialty Start Date End Date Lovely Vicente MD PCP - General 04/16/[address] [facility] [address] [place] [address] documented as of this encounter
--- OUTSIDE RECORDS SUMMARY | 2022-03-04 14:55 | XMS_ITS | Encounter Summary ---
:1945 Author Organization [facility] Address [facility] [place] [address] Care Team Providers Name Role Phone Lovely Vicente MD Primary Care Provider Encounter Details Date Type Department Care Team Description 07/29/2017 Transcribe Orders Laboratory Lovely Vicente, Coronary artery rupture; [facility] Ischemic cardiomyopathy; [facility] [address] Atherosclerosis of [place] co ronary artery, angina presence unspecified, unspecified whether [place] or transplanted heart; [place], [place] [address] Essential hypertension, malignant; [address] [place], [place] 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, unspecified detention insulin use status [phone] [id number] Social History Tobacco Use Types Packs/Day Years [...] Vitaliy Nobles MD [facility] CARDIOLOGY [place], [place] [address] (Wo rk) 06/10/2022 Office Visit Dermatology Laura Scherer MD [facility] ER [address] [place], [place] [address] (Wo rk) Scheduled Orders Name Type Priority Associated Diagnoses Order S chedule Lab Use Only, Fax Lab Routine Coronary arter y rupture Expected: 07/29/2017 Request Ischemic cardiom yopathy (Approximate), Atherosclerosis [place] Ex jose: 07/29/2018 coronary artery, angina presence unspecified, unspecified whether [place] or transplanted heart Essential hypertension, malignant documented as of this encounter Results Uric acid (08/04/2017 12:55 PM EST) P athologist Signature Uric Acid 7.1 3.5 - 8.5 [place]AT[place]INA RYAN mg/dL [facility] LABORATORY Specimen Anatomical Collection Method Collection Time Receive d Time (Source) Location / / Volume Laterality Blood specimen 08/04/2017 12:55 8 1:01 (specimen) PM EST PM EST Resulting Agency Comment Spec In Lab Lovely Vicente MD CHEMISTRY ORDERABLES Performing Organization Address City/State/Z[place] [address] (ABNORMAL) Hemogram (08/04/2017 12:55 PM EST) Analysis Performed At Patho logist Time Signature WBC 15.8 (H) 4.0 - 9.5 [facility]ALINA RYAN x10(3)/[facility] LABORATORY RBC 3.48 (L) 4.58 - [place]INA RYAN 5.54 [facility] x10(6)/[facility] LABORATORY Hemoglobin 9.9 (L) 13.7 - [place]INA RYAN 16.5 gm/dL [facility] LABOR[facility]ORY Hematocrit 31.4 (L) 40.5 - KATALINA RYAN 48.5 % [facility] MCV 90.2 82.9 - [place]INA RYAN 93.1 fL [facility] LAB[facility]ORY MCH 28.4 27.5 - [place]INA RYAN 32.1 pg [facility] LAB[facility] MCHC 31.5 (L) 32.0 - [facility] RYAN 35.7 gm/dL [facility] LAB[facility]ORY Platelets 310 145 - 357 [place]ALINA RYAN x10(3)/[facility] LABORATORY RDWSD 51.8 (H) 36.0 - [facility] 45.0 [facility] LABORATORY RDWCV 15.8 (H) 11.4 - [facility] 13.8 % [facility] LABORATORY MPV 8.9 7.6 - 12.9 [facility] LABORATORY nRBC % Auto 0.0 % [facility] LABORATORY nRBC Abs Auto 0.000 0.000 - [facility] 0.000 [facility] x10(3)/[facility] LABORATORY Specimen Anatomical Collection Method Collection Time Receive d Time (Source) Location / / Volume Laterality Blood specimen 08/04/2017 12:55 8 1:01 (specimen) PM EST PM EST Resulting Agency Comment Spec In Lab Lovely Vicente MD HEMATOLOGY ORDERABLES Performing Organization Address City/State/ZIP [place] [address] (ABNORMAL) Comprehensive metabolic panel (non-fasting) (08/04/2017 12:55 PM EST) P athologist Signature Glucose Lvl 208 (H) 65 - 199 [facility] mg/dL [facility] Comment: Diabetes: >=200 mg/dL plus symp toms BUN 32 (H) 10 - 20 mg/dL [facility] LABORATORY Creatinine 1.58 (H) 0.80 - 1.50 mg/dL [facility] LABORATORY Sodium 136 135 - 145 mmol/L [facility] LABOR[facility]ORY Potassium 5.5 (H) 3.5 - 5.0 mmol/L [facility] [...] - 10.5 mg/dL [facility] Total Protein 6.9 6.1 - 8.0 gm/dL [facility] LABOR[facility]ORY Albumin 3.4 3.2 - 5.2 gm/dL [facility] LABOR[facility] AST 20 0 - 39 unit/L [facility] LAB[facility] ALT 21 0 - 55 unit/L [facility] LAB[facility] Alk Phos 93 40 - 120 unit/L [facility] LABORATORY Total Bilirubin 0.4 0.2 - 1.3 mg/dL [facility] LABORATORY Estimated GFR 43 (L) >=60 [facility] LAB[facility] Comment: The reported eGFR should be multiplied b y 1.2 for patients. The MDRD is not an appropriate measure o f renal function for patients with body mass extremes or in patients with acute kidney failure. http://Pixeon/DHnkdep http://Pixeon/DHMCnkf Specimen Anatomical Collection Method Collection Time Receive d Time (Source) Location / / Volume Laterality Blood specimen 08/04/2017 12:55 8 1:01 (specimen) PM EST PM EST Resulting Agency Comment Spec In Lab Lovely Vicente MD CHEMISTRY ORDERABLES Performing Organization Address City/State/Z[place] [address] (ABNORMAL) Hemoglobin A1c (08/04/2017 [...] Mellitus, Diabetes Care 2013; 36: Suppl. 1, S67-65 Est Avg Gluc See note mg/dL [place] [...] with hemoglobinopathies. Additional resources are available on [facility] ADA website. Macario HAMMOND, Ruthann J, Deysi R, et al. ??Tr anslating the A1C assay into estimated average glucose values. ??Diabetes Care 2008:31(8):6655-3523. Specimen Anatomical Collection Method Collection Time Receive d Time (Source) Location / / Volume Laterality Blood specimen 08/04/2017 12:55 8 1:01 (specimen) PM EST PM EST Resulting Agency Comment Spec In Lab Lovely Vicente MD CHEMISTRY ORDERABLES Performing Organization Address City/State/Z[place] [address] (ABNORMAL) Prothrombin Time (08/04/2017 12:55 PM EST) P athologist Signature PT 35.4 (H) 11.8 - 14.0 [facility] LABORATORY INR 3.5 (H) 0.9 - [...] Organization Address City/State/[place] [address] documented in this encounter Visit Diagnoses Diagnosis Coronary artery rupture Acute myocardial infarction, unspecified site, episode of care unspecified Ischemic cardiomyopathy Other specified forms of chronic ischemi c heart disease Atherosclerosis of [place] coronary arter y, angina presence unspecified, unspecified whether [place] or transplanted heart Essential hypertension, malignant Diabetes mellitus due to underlying cond ition with diabetic nephropathy, unspecified watermaster insulin use status documented in this encounter Care Teams Customer Service Assistant Relationship Specialty Start Date End Date Lovely Vicente MD PCP - General 04/16/[address] [place] [address] documented as of this encounter
--- OUTSIDE RECORDS SUMMARY | 2022-03-04 14:55 | XMS_ITS | Encounter Summary ---
:1945 [place] [address] Care Team Providers Name Role Phone Lovely Vicente MD Primary Care Provider Encounter Details Date Type Department Care Team Description 07/16/2017 Telephone Endocrinology at [facility] C Manuela Holliday, [facility] [place] [address] ENDOCRINOLOGY DEPT [phone] [place], [place] [address] (Wo rk) Social History Tobacco [...] Nobles MD [facility] [address] [place], [place] [address] ([facility]) 06/10/2022 Office Visit Dermatology Laura Scherer MD [facility] [address] [place], [place] [address] (Wo ) documented as of this encounter Visit Diagnoses Not on filedocumented in this encounter Care Teams Hoop Riveter Relationship Specialty Start Date End Date Lovely Vicente MD PCP - General 04/16/[address] [place] [address] documented as of this encounter
--- OUTSIDE RECORDS SUMMARY | 2022-03-04 14:55 | XMS_ITS | Encounter Summary ---
:1945 Author Organization [facility] [place] [address] Care Team Providers Name Role Phone Lovely Vicente MD Primary Care Provider Encounter Details Date Type Department Care Team Description 08/03/2017 Telephone Pain Management at Angeles [place]eno, [place] [address] Social History Tobacco Use Types Packs/Day [...] Management Center Preauthorization Request Patient: Don Fatima [id number] Fax received from [facility] requesting we obtain prior authorization for Lidocaine Patches prescribed by Barbra Soares APRN. RX insurance plan: [employer] insurance telephone: [phone] Patient ?? Diagnosis: right foot pain secondary to PVD and ischemia ?? Previous medications attempted: Tylenol, Tramadol, Dilaudid Authorization/Reference number: [id number], PBP Code 801 _x_ denied, provider and patient informed _x_ appeal initiated by provider, patient informed Angeles Rodrigez, RN documented in this encounter Plan of Treatment Upcoming Encounters Date Type Specialty Care Team Description 03/26/2022 Office Visit Cardiology Vitaliy Nobles MD [facility] MEDICAL [facility] ER [address] [place], [place] [address] (Wo rk) 06/10/2022 Office Visit Dermatology Laura Scherer MD [facility] [address] [place], [place] [address] (Wo rk) documented as of this encounter Visit Diagnoses Not on filedocumented in this encounter Care Teams Community Case Manager Relationship Specialty Start Date End Date Lovely Vicente MD PCP - General 04/16/15 [facility] [address] [place] [address] documented as of this encounter
--- OUTSIDE RECORDS SUMMARY | 2022-03-04 14:55 | XMS_ITS | Encounter Summary ---
:1945 Author Organization [facility] [place] [address] Care Team Providers Name Role Phone Lovely Vicente MD Primary Care Provider Encounter Details Date Type Department Care Team Description 08/02/2017 Telephone Pain Management at Angeles Bueno, [place] [address] Social History Tobacco Use Types Packs/Day [...] Management Center Preauthorization Request Patient: Don Fatima [id number] Fax received from [facility] requesting we obtain prior authorization for Lidocaine patches prescribed by Barbra Soares APRN. RX insurance plan: [employer] insurance telephone: [phone] Patient Diagnosis: right foot pain secondary to PVD and ischemia Previous medications attempted: Tylenol, Tramadol, Dilaudid The following action was taken after discussion with the cargo service supervisor: _x_ pharmacy informed Authorized dosage or amount: 5% on patch on for 12 hours, then remove for 12 hours. Angeles Rodrigez, RN documented in this encounter Plan of Treatment Upcoming Encounters Date Type Specialty Care Team Description 03/26/2022 Office Visit Cardiology Vitaliy Nobles MD [facility] ER [address] [place], [place] [address] (Wo rk) 06/10/2022 Office Visit Dermatology Laura Scherer MD [facility] ER [address] [facility] [place] [place] [address] (Wo rk) documented as of this encounter Visit Diagnoses Not on filedocumented in this encounter Care Teams Tire Repair Mechanic Relationship Specialty Start Date End Date Lovely Vicente MD PCP - General 04/16/[address] [place] [address] documented as of this encounter
--- OUTSIDE RECORDS SUMMARY | 2022-03-04 14:55 | XMS_ITS | Encounter Summary ---
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 Hank Zhang Vascular Surgery, PGY2 Pager #[phone] Associated attestation - Arik Clement MD - [...] [facility] [address] [place], [place] [address] (Wo rk) 06/10/2022 Office Visit Dermatology Laura Scherer MD [facility] DR TEJA GR-DERMAT [place], [place] [address] (Wo rk) documented as of [...] Test Analysis Performed At [facility] gist Range Method Time Signature VB Text Department: Vascular Surgery Lab VASCUBASE Report Patient: [id number] (GREGORY FATIMA) CPT: 70172 ICD10: I82.541 Referring Physician: TAMIKO JIMÉNEZ ?? [...] POC Glucose 128 65 - 199 [facility] mg/dL [facility] Comment: Supplemental ranges: <140 mg/dL before meals <180 mg/dL all other times of the day Specimen Anatomical Collection Method Collection Time Receive d Time (Source) Location / / Volume Laterality Blood specimen 07/29/2017 2:28 PM 018 2:28 (specimen) EST PM EST Tamiko Jiménez MD POINT OF CARE TEST ORDERABLE S Performing Organization Address City/[facility]/[place] [address] (ABNORMAL) D-Dimer, Quantitative (07/29/2017 2:15 PM EST) [facility] Method Time Signature D-Dimer, Quant 1,699 (H) 0 - 500 [facility] FEU ng/ml [facility] [...] Jiménez MD HEMATOLOGY ORDERABLES Performing Organization Address [facility]/[place] [address] (ABNORMAL) Differential, Automated (07/29/2017 2:15 PM EST) [facility] Method Time Signature Neutrophils % 82.5 % [facility] Neutr Abs (ANC) 10.21 (H) 1.70 - [facility] 6.10 [facility] x10(3)/[facility] LABORATORY Lymphocytes % 7.1 % [facility] Lymphocytes Abs 0.9 0.9 - 3.2 [facility] x10(3)/[facility] LABORATORY Monocytes % 6.5 % [facility] Monocyte Abs 0.8 0.3 - 0.9 [facility] x10(3)/[facility] LABORATORY Eosinophils % 2.7 % [facility] Eosinophils Abs 0.3 0.0 - 0.4 [facility] x10(3)/[facility] LABORATORY Basophils % 0.6 % [facility] Basophils Abs 0.1 0.0 - 0.1 [facility] x10(3)/[facility] LABORATORY Immature Gran % 0.60 % [facility] [...] Abs 0.08 (H) 0.00 - 0.04 x10(3)/[facility] LABORATORY Specimen Anatomical Collection Method Collection Time Receive d Time (Source) Location / / Volume Laterality Blood specimen 07/29/2017 2:15 PM 018 2:36 (specimen) EST PM EST Resulting Agency Comment Spec In Lab Tamiko Jiménez MD HEMATOLOGY ORDERABLES Performing Organization Address City/State/ZIP Code Phon e Number [place] [id number] (ABNORMAL) Hemogram (07/29/2017 2:15 PM EST) Analysis Performed At Patho logist Time Signature WBC 12.4 (H) 4.0 - 9.5 [facility] x10(3)/[facility] LABORATORY RBC 4.17 (L) 4.58 - [facility] 5.54 [facility] x10(6)/[facility] LABORATORY Hemoglobin 12.1 (L) 13.7 - [facility] 16.[facility] gm/dL [facility] Hematocrit 38.1 (L) 40.5 - [facility] 48.5 % [facility] MCV 91.4 82.9 - [facility] MCH 29.0 27.5 - [facility] 32.1 pg [facility] MCHC 31.8 (L) 32.0 - [facility] 35.7 gm/dL [facility] Platelets 204 145 - 357 [facility] x10(3)/[facility] LABORATORY RDWSD 50.5 (H) 36.0 - [facility].0 fL [facility] RDWCV 15.3 (H) 11.4 - [facility] 13.8 % [facility] MPV 9.4 7.6 - 12.9 [facility] LABORATORY nRBC % Auto 0.0 % [facility] nRBC Abs Auto 0.000 0.000 - [facility] 0.000 [facility] x10(3)/[facility] LABORATORY Specimen Anatomical Collection Method Collection Time Receive d Time (Source) Location / / Volume Laterality Blood specimen 07/29/2017 2:15 PM 018 2:36 (specimen) EST PM EST Resulting Agency Comment Spec In Lab Tamiko Jiménez MD HEMATOLOGY ORDERABLES Performing Organization Address City/State/ZIP Code Phon e Number [address] (ABNORMAL) Prothrombin Time (07/29/2017 2:15 PM EST) P athologist Signature PT 24.4 (H) 11.8 - 14.0 [facility] LABORATORY INR 2.2 (H) 0.9 - 1.1 [facility] [...] Address City/State/ZIP Code Phon e Number [address] Arterial Duplex Leg, Unil (07/29/2017 11:50 AM EST) Component Value Ref Test Analysis Performed At Patholo gist Range Method Time Signature VB Text Department: Vascular Surgery Lab VASCUBASE Report Patient: [id number] (GREGORY FATIMA) CPT: 29885 ICD10: Z09;I97.610 Referring Physician: TAMIKO JIMÉNEZ ?? [...] Ref Test Analysis Performed At [facility] Range Method Time Signature VB Text Department: Vascular Surgery Lab VASCUBASE Report Patient: [id number] (GREGORY FATIMA) CPT: 39057 ICD10: I82.441 Referring Physician: TAMIKO JIMÉNEZ ?? [...] he calf. Notification: Marquis Pathak MD (pager #[phone]) was notif ied of the preliminary findings. [...] STAT documented in this encounter Care Teams Automatic Pinsetter Adjuster Relationship Specialty Start Date End Date Lovely Vicente MD PCP - General 04/16/15 [facility] [address] [place] [address] documented as of this encounter
--- OUTSIDE RECORDS SUMMARY | 2022-03-04 14:55 | XMS_ITS | Encounter Summary ---
:1945 Author Organization [facility] [place] [address] Care Team Providers Name Role Phone Lovely Vicente MD Primary Care Provider Encounter Details Date Type Department Care Team Description 07/29/2017 Transcribe Orders Laboratory Lovely Vicente MD [address] [address] [place], [place] [id number] (Wo rk) Social History Tobacco Use Types [...] MD [facility] ER [address] TADEO [place], [place] [address] (Wo rk) 06/10/2022 Office Visit Dermatology Laura Scherer MD [facility] ER DR TEJA [address] [place], [place] [address] (Wo rk) documented as of this encounter Visit Diagnoses Not on filedocumented in this encounter Care Teams Exceptional Student Education Aide Relationship Specialty Start Date End Date Lovely Vicente MD PCP - General 04/16/[address] [facility] [address] [place] [address] documented as of this encounter
--- OUTSIDE RECORDS SUMMARY | 2022-03-04 14:55 | XMS_ITS | Encounter Summary ---
:1945 Author Organization [facility] [place] [address] Care Team Providers Name Role Phone Lovely Vicente MD Primary Care Provider Encounter Details Date Type Department Care Team Description 07/24/2017 Telephone Vascular Surgery Melba Bob [facility] [place] [address] [facility] [phone] VASCULAR SURGERY [place], [place] [address] (Wo rk) Social History Tobacco [...] was discharged on Coumadin. ??[place] [facility] [place] with mottled toes on the [...] Cardiology Vitaliy Nobles MD [facility] ER [address] TADE[address] [place], [place] [address] (Wo rk) 06/10/2022 Office Visit Dermatology Laura Scherer MD [facility] ER [facility] TEJA [address] [place] [place] [address] (Wo rk) documented as of this encounter Visit Diagnoses Not on filedocumented in this encounter Care Teams Salvage Laborer Relationship Specialty Start Date End Date Lovely Vicente MD PCP - General 04/16/[address] [place] [address] (work) documented as of this encounter
--- OUTSIDE RECORDS SUMMARY | 2022-03-04 14:55 | XMS_ITS | Encounter Summary ---
:1945 Author Organization [facility] [place] [address] Care Team Providers Name Role Phone Lovely Vicente MD Primary Care Provider Reason for Visit Reason Comments Foot Pain Auth/Cert Specialty Diagnoses / Procedures Referred By Contact Refer red To Contact Diagnoses Ischemic foot Procedures NAYE OBSVO Referral ID Status Reason Start Date Expiration Date Visits Requ ested Visits Authorized [id number] 1 1 Encounter Details Date Type Department Care Team Description 07/27/2017 Emergency 1 [facility] Lokesh Swenson MD [facility] [place] [address] Femoral artery pseudo-aneurysm, right; [facility] Tam Bauman MD [facility] [place] [address] [place] [address] Social History Tobacco Use Types Packs/Day [...] Gregory Fatima Patient Age: 72 y.o. Language: Japanese Race: White Ethnicity: Not nor Admit date: [...] please contact your inpatient physician through the [facility] Manager Validation . Issues after hours and on weekends [...] RLE critical limb ischemia, who presented to [facility] with worsening RLE pain. Pt post-op course after CABG was significant for paroxysmal Afib, and he was started on Coumadin given elevated [id number] score. 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 He [...] in the last 7068 hours. Invalid input(s): [id number] Recent Labs 07/08/17 0400 07/07/17 0515 07/06/17 [...] (it was low at 1.6 here at [facility]) 7. Use the tramadol if dilaudid or tylenol is not working 8. Stop taking the potassium supplement - your blood potassium level was elevated. Ask your doctors at future visits if this should be restarted. 9. Antibiotic for 5 days recommended by cardiothoracic surgery for chest wound drainage Follow-Up Appointments Vascular surgery as previously schedule Your Inpatient Doctor(s) at [facility]: CARLOS ALBERTO ROSALES MD General Instructions None Future Appointments and Orders Future Appointments Provider Department Dept Phone 07/30/2017 8:30 AM OSWALDO, THREE L Lab 3L [facility] [phone] 07/30/2017 9:40 AM Danette Maxwell APRN Cardiology at [place] [phone] 08/04/2017 1:00 PM Daniele Mooney [place] Vascular Lab at [place] [phone] 08/04/2017 2:15 PM Arik Clement MD Vascular Surgery at [place] [phone] 08/11/2017 10:00 AM [facility] ROOM 2 XRay at [place] [phone] Please go to [facility] Area 3T ([place] Location). 08/11/2017 11:00 AM Yuan Retana MD Cardiac Surgery at [place] [phone] 09/07/2017 3:00 PM LAB, THREE L Lab 3L [facility] [phone] 09/07/2017 4:00 PM Luz Prescott MD Endocrinology at [place] [phone] Discharge References/Attachments None documented in this encounter [...] (it was low at 1.6 here at [facility]) 3. Use the tramadol if dilaudid or tylenol is not working 4. Stop taking the potassium supplement - your blood potassium level was elevated. Ask your doctors at future visits if this should be restarted. 5. Antibiotic for 5 days recommended by cardiothoracic surgery for chest wound drainage Follow-Up Appointments Vascular surgery as previously schedule Your Inpatient Doctor(s) at [facility]: CARLOS ALBERTO ROSALES MD documented [...] Gas) No results found for: PHART, PO2ART, EEC2REN Assessment/Plan: 72 y.o. male s/p CABG in [...] intervention: Education Nutrition Recommendations: Recommend continuation of [facility], CHO2 diet order Patient and [...] Orders Diet Daily Healthy Menu Choices/Cardiac diet ([facility]-Diet) 60/ CHO counting level 2 Frequency: Effective Now Number of Occurrences: Until Specified Admit Weight: 83.92 kg Estimated body mass index is 28.13 kg/(m^2) as calculated from the following: Height as of this encounter: 172.7 cm (5' 8). Weight as of this encounter: 83.9 kg (185 lb). [place] body weight: 68.4 kg (150 lb 12.7 [...] RLE critical limb ischemia, who presented to [facility] with worsening RLE pain. Visited [...] spent >30 minutes (Day of Discharge Code 06864) involved in the final examination of the [...] Melanoma ID: 72 y.o. Male presents to [facility] with persistent pain b/l lower extremities History of Present Illness: HPI 72 y.o. male with PMH ASCVD s/p CABG (07/07/17), MARIA VICTORIA on CPAP QHS, HTN, HLD, DM2, with recent hospitalization for RLE critical limb ischemia, who presented to [facility] with worsening RLE pain. Pt post-op course after CABG was significant for paroxysmal Afib, and he was started on Coumadin given elevated XCSS3SIXKR score. 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 He [...] at [facility] MAIN OR Prior To Admission Medications: [...] Procedure Component Value Units Date/Time Blood culture [[id number]] Collected: 07/09/1739 Lab Status: Final result Specimen: Blood from Arm, Right Updated: 07/14/17701 Blood Culture No growth at 5 days. Blood culture [[id number]] Collected: 07/09/170 Lab Status: Final result Specimen: [...] limb ischemia following CABG, who presented to [facility] ED from home with persistent [...] continued Diet Daily Healthy Menu Choices/Cardiac diet ([facility]-Diet) 60/60/75 CHO counting level 2Cardiac, low salt, CHO 2 Discharge planning Pending improvement in pain control PT/OT/Speech PT ordered Lines/Access PIV Ocasio catheter No DVT/GI Prophylaxis Lovenox bridge to Coumadin, SCD. Code status Full Code Family PCP Lovely Vicente MD [phone] Attestation Please see my note for details [...] encounter Miscellaneous Notes Plan of Care - [place]-Joyce Damian, PT - 07/27/2017 3:26 PM EST [...] Anticipated Discharge Disposition: home with assist Pager: [phone] JOYCE KING, PT Inpatient Physical Therapy 2017 [...] patient's evaluation including the following functional test(s) [facility]. Current ability measures, co-morbidities and clinical [...] a lovenox bridge. Mr. Fatima returns to [facility] ED tonight because of ongoing [...] at [facility] MAIN OR MEDICATIONS: No current facility-administered [...] up in clinic 1-[address] [facility] Vascular Surgery Plan of Care - [...] Cardiology Vitaliy Nobles MD [facility] ER CARDIOLOGY [place], [place] [address] (Wo rk) 06/10/2022 Office Visit Dermatology Laura Scherer MD [facility] [address] [place], [place] [address] (Wo rk) documented as of this [...] section. TYPE AND SCREEN STAT 07/27/2017 12:53 ([facility]/CGP/SHANDA) AM EST BASIC METABOLIC PANEL STAT 07/27/2017 12:53 Re sults for this (NON-FASTING) AM EST procedure are in the results section. documented in this encounter Results POCT Glucose (07/27/2017 11:53 AM EST) P athologist Signature POC Glucose 175 65 - [address] [facility] mg/dL [facility] Comment: Supplemental ranges: <140 mg/dL before meals <180 mg/dL all other times of the day Specimen Anatomical Collection Method Collection Time Receive d Time (Source) Location / / Volume Laterality Blood specimen 07/27/2017 11:53 8 (specimen) AM EST 11:53 AM EST Tam Bauman MD POINT OF CARE TEST ORDERABLE S Performing Organization Address City/State/[place] [address] Arterial Duplex Leg, Unil (07/27/2017 7:40 AM EST) Component Value Ref Test Analysis Performed At Patholo gist Range Method Time Signature VB Text Department: Vascular Surgery Lab VASCUBASE Report Patient: [id number] (GREGORY FATIMA) CPT: 44441 ICD10: I97.610;I72.4;Z09 Referring Physician: TAM BAUMAN ?? [...] Bauman MD VASCULAR ORDERABLES Performing Organization Address City/[facility]/ZIP Code Phon e Number VASCUBASE POCT Glucose (07/27/2017 6:51 AM EST) P athologist Signature POC Glucose 96 65 - [address] [facility] mg/dL [facility] Comment: Supplemental ranges: <140 mg/dL before meals <180 mg/dL all other times of the day Specimen Anatomical Collection Method Collection Time Receive d Time (Source) Location / / Volume Laterality Blood specimen 07/27/2017 6:51 AM 018 6:51 (specimen) EST AM EST Tam Bauman MD POINT OF CARE TEST ORDERABLE S Performing Organization Address City/[facility]/ZIP Code Phon e Number [address] ABORH Recheck Status (07/27/2017 12:53 AM EST) Patholo gist Method Time Signature ABORH Type Completed [facility] LABORATORY Specimen Anatomical Collection Method Collection Time Receive d Time (Source) Location / / Volume Laterality Blood specimen 07/27/2017 12:53 8 (specimen) AM EST 12:58 AM EST Resulting Agency Comment Spec In Lab Angela Swenson MD BLOOD BANK ORDERABLES Performing Organization Address City/[facility]/ZIP Code Phon e Number [address] Gold Tube HOLD (07/27/2017 12:53 AM EST) P athologist Signature Gold Hold Sample in [facility] LABORATORY Specimen Anatomical Collection Method Collection Time Receive d Time (Source) Location / / Volume Laterality Blood specimen Venous Draw / 07/27/2017 12:53 07/27/19 18 1:01 (specimen) Unknown AM EST AM EST Angela Swenson MD CHEMISTRY ORDERABLES Performing Organization Address City/[facility]/ZIP Code Phon e Number [place] [phone] HOSP[address] LAB[address]ORY [address] (ABNORMAL) Differential, Automated (07/27/2017 12:53 AM EST) [facility] Method Time Signature Neutrophils % 75.0 % [facility] Neutr Abs (ANC) 11.30 (H) 1.70 - [facility] 6.10 [facility] x10(3)/[facility] LABORATORY Lymphocytes % 9.9 % [facility] Lymphocytes Abs 1.5 0.9 - 3.2 [facility] x10(3)/[facility] LABORATORY Monocytes % 8.6 % [facility] Monocyte Abs 1.3 (H) 0.3 - 0.9 [facility] x10(3)/[facility] LABORATORY Eosinophils % 4.8 % [facility] Eosinophils Abs 0.7 (H) 0.0 - 0.4 [facility] x10(3)/[facility] LABORATORY Basophils % 0.8 % [facility] Basophils Abs 0.1 0.0 - 0.1 [facility] x10(3)/[facility] LABORATORY Immature Gran % 0.90 % [...] Abs 0.13 (H) 0.00 - 0.04 x10(3)/[facility] LABORATORY Specimen Anatomical Collection Method Collection Time Receive d Time (Source) Location / / Volume Laterality Blood specimen 07/27/2017 12:53 8 1:00 (specimen) AM EST AM EST Resulting Agency Comment Spec In Lab Angela Swenson MD HEMATOLOGY ORDERABLES Performing Organization Address City/State/ZIP Code Phon e Number [place] [phone] HOSPITAL LAB[address] (ABNORMAL) Hemogram (07/27/2017 12:53 AM EST) Analysis Performed At Patho logist Time Signature WBC 15.0 (H) 4.0 - 9.5 [facility] x[facility](3[facility] LABORATORY RBC 3.59 (L) 4.58 - [place] 5.54 [facility] x10(6)/[facility] LABORATORY Hemoglobin 10.3 (L) 13.7 - [facility] RYAN 16.5 gm/dL [facility] Hematocrit 32.6 (L) 40.5 - [facility] 48.5 % [facility] MCV 90.8 82.9 - [facility] 93.[address] [facility] LABORATORY MCH 28.7 27.5 - [facility] RYAN 32.1 pg [facility] MCHC 31.6 (L) 32.0 - [place] 35.7 gm/dL [facility] Platelets 322 145 - 357 [facility] x10(3)/[facility] LABORATORY RDWSD 48.7 (H) 36.0 - [facility] RYAN 45.[address] [facility] LABORATORY RDWCV 14.7 (H) 11.4 - [facility] RYAN 13.8 % [facility] MPV 8.9 7.6 - 12.9 [facility] LABORATORY nRBC % Auto 0.0 % [facility] nRBC Abs Auto 0.000 0.000 - [facility] 0.000 [facility] x10(3)/[facility] LABORATORY Specimen Anatomical Collection Method Collection Time Receive d Time (Source) Location / / Volume Laterality Blood specimen 07/27/2017 12:53 8 1:00 (specimen) AM EST AM EST Resulting Agency Comment Spec In Lab Angela Swenson MD HEMATOLOGY ORDERABLES Performing Organization Address City/State/[place] [address] Antibody screen (07/27/2017 12:53 AM EST) Patholo gist Method Time Signature Ab Screen Negative [facility] LABORATORY Expires at 07/30/2017 KATALINA DAVIS 1095 on: [facility] Specimen Anatomical Collection Method Collection Time Receive d Time (Source) Location / / Volume Laterality Blood specimen 07/27/2017 12:53 8 (specimen) AM EST 12:58 AM EST Resulting Agency Comment Spec In Lab Angela Swenson MD BLOOD BANK ORDERABLES Performing Organization Address City/[facility]/[place] [address] ABO/Rh Typing (07/27/2017 12:53 AM EST) P athologist Signature ABORh Type O Pos [facility] Specimen Anatomical Collection Method Collection Time Receive d Time (Source) Location / / Volume Laterality Blood specimen 07/27/2017 12:53 8 (specimen) AM EST 12:58 AM EST Resulting Agency Comment Spec In Lab Angela Swenson MD BLOOD BANK ORDERABLES Performing Organization Address [facility] [place] [address] (ABNORMAL) Prothrombin Time (07/27/2017 [...] Swenson MD HEMATOLOGY ORDERABLES Performing Organization Address [facility] [place] [address] (ABNORMAL) Basic Metabolic Panel (non-fasting) (07/27/2017 12:53 AM EST) P athologist Signature Glucose Lvl 95 65 - [address] [facility] mg/dL [facility] Comment: Diabetes: >=200 mg/dL plus symp toms BUN 37 (H) 10 - 20 mg/dL [facility]ORY Creatinine 1.49 0.80 - 1.50 mg/dL [facility] Sodium 137 135 - 145 mmol/L [facility] LABORATORY Potassium 5.1 (H) 3.5 - 5.0 mmol/L [facility] [...] [facility] Calcium 8.6 8.5 - 10.5 mg/dL [facility] LABOR[facility]ORY Estimated GFR 46 (L) >=60 [facility] Comment: The reported eGFR should be multiplied b y 1.2 for patients. The MDRD is not an appropriate measure o f renal function for patients with body mass extremes or in patients with acute kidney failure. 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
Routine documented in this encounter Care Teams Paint Specialist Relationship Specialty Start Date End Date Lovely Vicente MD PCP - General 04/16/[address] [facility] [address] [place] [address] documented as of this encounter
--- OUTSIDE RECORDS SUMMARY | 2022-03-04 14:55 | XMS_ITS | Encounter Summary ---
:1945 Author Organization [facility] [address] Care Team Providers Name Role Phone Lovely Vicente MD Primary Care Provider Encounter Details Date Type Department Care Team Description 07/29/2017 Transcribe Orders Laboratory Lovely Vicente MD [address] [address] [place], [place] [address] (Wo rk) Social History Tobacco Use Types [...] Nobles MD [facility] ER [address] [place], [place] [address] (Wo rk) 06/10/2022 Office Visit Dermatology Laura Scherer MD [facility] ER DR [address] [place]LOG[place], [place] [address] (Wo rk) documented as of this encounter Visit Diagnoses Not on filedocumented in this encounter Care Teams Tsa Screener Relationship Specialty Start Date End Date Lovely Vicente MD PCP - General 04/16/[address] [facility] [place] [address] documented as of this encounter
--- OUTSIDE RECORDS SUMMARY | 2022-03-04 14:55 | XMS_ITS | Encounter Summary ---
:1945 Author Organization [facility] [place] [place] [address] Care Team Providers Name Role Phone Lovely Vicente MD Primary Care Provider Reason for Visit Auth/Cert Specialty Diagnoses / Procedures Referred By Contact Refer red To Contact Diagnoses Critical lower limb ischemia CELLULITIS RT FOOT Procedures EMERGENCY Referral ID Status Reason Start Date Expiration Date Visits Requ ested Visits Authorized [id number] 1 1 Encounter Details Date Type Department Care Team Description 08/04/2017 [facility] Barbara [place] thrombosis of [facility] [place] [id number] Social History Tobacco Use Types Packs/Day Years [...] MD [facility] CARDIOLOGY [place], [place] [address] (Wo rk) 06/10/2022 Office Visit Dermatology Laura Scherer MD [facility] DR [address]DERMAT OLOG[place], [place] [address] (Wo rk) documented as [...] [facility] Range Method Time Signature VB Text Department: Vascular Surgery Lab VASCUBASE Report Patient: [id number] (DON HOANG) CPT: 21811 ICD10: I82.541 Referring Physician: TAMIKO HUTSON ?? [...] extremity documented in this encounter Care Teams Senior Research Engineer Relationship Specialty Start Date End Date Lovely Vicente MD PCP - General 04/16/[address] [place] [address] documented as of this encounter
--- OUTSIDE RECORDS SUMMARY | 2022-03-04 14:55 | XMS_ITS | Encounter Summary ---
:1945 [place] [address] Care Team Providers Name Role Phone Lovely Vicente MD Primary Care Provider Reason for Visit Reason Onset Date Comments Questions 07/16/2017 fluid retention Encounter Details Date Type Department Care Team Description 07/16/2017 Telephone Cardiology at [facility] Martha Comer, Questions ([facility] RN retention ) [place] [address] Social History Tobacco Use Types Packs/Day [...] the direct number to the HF team ([phone]). She is aware of his appt with UTILITIES EQUIPMENT REPAIRER Hans on 07/21/17 and the need for labs prior to that visit. verbalized good understanding of the current POC. documented in this encounter Plan of Treatment Upcoming Encounters Date Type Specialty Care Team Description 03/26/2022 Office Visit Cardiology Vitaliy Nobles MD [facility] DR [address] [place], [place] [address] (Wo rk) 06/10/2022 Office Visit Dermatology Laura Scherer MD [facility] DR [address] [place], [place] [address] (Wo rk) documented as of this encounter Visit Diagnoses Not on filedocumented in this encounter Care Teams Rn Residential Relationship Specialty Start Date End Date Lovely Vicente MD PCP - General 04/16/15 [facility] [address] [place] [address] documented as of this encounter
--- OUTSIDE RECORDS SUMMARY | 2022-03-04 14:57 | XMS_ITS | Encounter Summary ---
:1945 Author Organization [facility] [place] [address] Care Team Providers Name Role Phone Lovely Vicente MD Primary Care Provider Reason for Referral Consultation (Routine) - Closed Specialty Diagnoses / Referred By Contact Referred To Contact Procedures Cardiac Rehabilitation Diagnoses S/P CABG x 3 Yuan Webber, Cardiac Rehab, [address] [facility] [place] CARDIOTHORACIC [address] [place] [address] Referral ID Status Reason Start Date Expiration Date Visits V isits Requested Authorized [id number] Closed Consult, 07/14/2017 01/10/2018 36 36 Test & Treat Reason for Visit Auth/Cert Specialty Diagnoses / Procedures Referred By Contact Refer red To Contact Diagnoses STEMI (ST elevation myocardial infarction) NSTEMI STEMI Procedures CARDIAC CATHETERIZATION NAYE IPI Referral ID Status Reason Start Date Expiration Date Visits Requ ested Visits Authorized [id number] 1 1 Encounter Details Date Type Department Care Team Description 07/05/2017 - Hospital Encounter Cardiac Special Daphne Shahid MD [facility] [place] [address] Non-ST elevation myocardial infarction ( NSTEMI); 07/14/2017 Care Unit Yuan Preciado MD [facility] [place] [address] S/P CABG x 3 [place] [id number] Social History Tobacco Use Types Packs/Day Years [...] Patient Age: 72 y.o. Birthdate: 1945 Language: Bruneian Race: White Ethnicity: Not nor Admit Date: [...] , @ 1:20p Patient to follow-up with Smoking Pipe Maker/heart failure team in one week. An appointment will be made for you. You may call [phone] Patient to follow-up with Cardiac Surgery, Dr. Yuan Webber, in ~ 4 weeks with CXR, EKG. Inpatient Provider Contact Information: [facility] Section of Cardiac Surgery [facility] [address] FAX [phone] Discharge Diagnoses (Hospital Problems) Primary Diagnoses: CAD [...] SETUP performed by Manny Mcknight MD at [facility] MAIN OR ??? PRO CABG, ARTERIAL, SINGLE N/A 07/07/2017 @CABG, USING ARTERIAL GRAFT;SINGLE ARTERIAL GRAFT (WRVU 33.75) performed by Yuan Webber MD at [facility] MAIN OR ??? PRO CABG, ARTERY-VEIN, TWO N/A 07/07/2017 @CABG, TWO VENOUS GRAFTS & ARTERIAL GRAFT (WRVU 7.93) performed by Yuan Webber MD at [facility] MAIN OR ??? PRO COLONOSCOPY, REMV LESN, SNARE 01/16/2014 COLONOSCOPY, POLYPECTOMY, REMOVAL LESION BY SNARE performed by Nohemi Jaimes MD at [facility] ENDOSCOPY ??? PRO ENDOSCOPY W/VIDEO-ASST VEIN HARVEST, CABG Right 07/07/2017 ENDOSCOPIC HARVEST VEIN(S) FOR CABG (WRVU 0.31) performed by Yuan Webber MD at [facility] MAIN OR ??? PRO THYROIDECTOMY 03/28/2013 THYROIDECTOMY, TOTAL OR COMPLETE performed by Manny Mcknight MD at [facility] MAIN OR Prior To Admission Medications Prescriptions Prior to Admission Medication Sig Dispense Refill Last Dose ??? levothyroxine (SYNTHROID) 175 mcg Tablet Take 1 tablet by mouth daily. 90 tablet 3 07/05/2017 [id number] ??? ascorbic acid, vitamin C, (VITAMIN C) [...] hospital and ruled infor non-ST segment elevation [place]. This almost certainly represents the residual of [...] Hospital Course: Gregory Hoang was admitted to [facility] on 07/05/2017 via the Cardiology Service. During his hospital course, he was taken emergently to the curb and gutter laborer for an ongoing STEMI. An IABP [...] not take or discontinue any prescription or axmn-yrp-hlxsyoz medications without asking your doctor or pharmacist [...] day to have your insulin doses adjusted. [facility] Endocrine clinic office Discharge Instructions: Call your doctor if: You have a fever of greater than 101 degrees, shaking chills, if you develop redness or drainage from your incision sites, or if you have questions. Please call your surgeon's office if you have any discharge or drainage from your chest incision. Your surgeon, Dr. Yuan Webber and/or the Cardiac Surgery Physician Design Analyst Team may be reached at . Weight: [...] Dr. Yuan Webber. You may use a [place] Track or treadmill but avoid any pulling [...] with the surgeon. Do not ride motorcycles, Halton's tractors or horses. Avoid the use of [...] should resume a low fat, low cholesterol, Japanese Heart Association Diet/Diabetic diet. Driving: No driving [...] , @ 1:20p Patient to follow-up with Smoking Pipe Maker/heart failure team in one week. Appointment will be made for you. You may call [phone] Patient to follow-up with Cardiac Surgery, Dr. Yuan Webber, in ~ 4 weeks with CXR, EKG. Cardiac Rehabilitation: Gregory Hoang was seen today regarding participation in the outpatient Phase 2 Cardiac Rehabilitation at [facility]. The patient agrees to a referral to this program. The referral will be sent at discharge and the patient should be contacted by the Program within 1- 2 weeks from discharge. ?? Future Appointments and Orders Future Appointments Provider Department Dept Phone 09/07/2017 3:00 PM LAB, THREE L Lab 3L [facility] [phone] 09/07/2017 4:00 PM Luz Prescott MD Endocrinology at [facility] [phone] Future Orders Complete By Expires EKG 12 Lead [EKG1 Custom] 08/14/2017 02/13/2018 Process Instructions: Scheduling Instructions: Questions: Which location will this be performed?: [facility] Is a rhythm strip needed?: No If EKG Reason is Pre-op Evaluation, indicate diagnosis for surgery.: XR Chest PA & Lateral (Generic) [[id number] Custom] 08/14/2017 02/13/2018 Process Instructions: Scheduling Instructions: Questions: Where will study be performed?: [facility] Portable exam?: Reason for exam and clinical history: CABG x 3 Other pertinent information: Stat read required?: Date of injury if applicable: Requested Time: Referral to Cardiac Rehab [EWR585 Custom] As directed Process Instructions: If no progress note charted, please enter Clinical details in comments. Scheduling Instructions: Questions: My question or request is: s/p CABG. Cardiac rehab at [facility] Referral to Home Health - at DISCHARGE [KNT6652 CPT(R)] As directed Process Instructions: Scheduling Instructions: Comments: DOCUMENTATION FOR VNA SERVICES (INCLUDING THOSE PATIENTS WITH MEDICARE COVERAGE REQUIRING HOME VNA SERVICES AND/OR HOSPICE SERVICES) PATIENT'S LOCATION: Gregory Hoang [address] [place] [address] [place] [id number] (home) Telephone Information: Chief Security And Safety Officer's Name: self In discussion with the attending physician, it is certified that this patient is under their care and that they, or a Nurse Practitioner, or Physician Design Analyst who is working directly with them, had [...] HEALTH AGENCY: [facility] ([facility] [place] [facility] in [place]) PHONE: [phone] FAX: [phone] RN orders: Cardiopulmonary assessment, incisional assessment, assess vital signs, assessment of rehab progress, medication management and effectiveness, home safety evaluation. Please draw INR if indicated and send result to:Dr Vicente [phone] PT ORDERS: Continue rehab for endurance, gait stability and strength with mobility and transfers. Home safety evaluation. Home exercise program if appropriate. Start of Care Date:24-48 hours after discharge SPECIAL INSTRUCTIONS: For any follow up questions, needs, or issues please call the Cardiac Surgery Office at [phone] FOR MEDICARE ONLY: (please delete this section [...] AFTER 07/17/2017 Signed: Martha Teague APRN [facility] Section of Cardiac Surgery [facility] [address] FAX [phone] Date: 07/14/2017 CC: MD Ivania Cr Betsy, PA [address] [place] [phone] documented in this encounter Discharge Instructions Discharge [...] day to have your insulin doses adjusted. [facility] Endocrine clinic office Patient InstructionsStMartha mcdonald APRN [...] not take or discontinue any prescription or hlew-djv-klynfye medications without asking your doctor or pharmacist [...] juice or regular (not diet) soda 6 Adore Mes small box of raisins 4 glucose tablets [...] day to have your insulin doses adjusted. [facility] Endocrine clinic office ? Discharge Instructions: ?? Call your doctor if: You have a fever of greater than 101 degrees, shaking chills, if you develop redness or drainage from your incision sites, or if you have questions. Please call your surgeon's office if you have any discharge or drainage from your chest incision. Your surgeon, Dr. Yuan Webber and/or the Cardiac Surgery Physician Design Analyst Team may be reached at . ?? [...] Dr. Yuan Webber. You may use a [place] Track or treadmill but avoid any pulling [...] with the surgeon. Do not ride motorcycles, Hal[place]'ison furniture tractors or horses. Avoid the use of [...] should resume a low fat, low cholesterol, Japanese Heart Association Diet/Diabetic diet. ?? Driving: No [...] @ 1:20p ?? Patient to follow-up with Smoking Pipe Maker/heart failure team in one week. An appointment has been made for you, you can call [phone] ?? Patient to follow-up with Cardiac Surgery, Dr. Yuan Webber, in ~ 4 weeks with CXR, EKG. ? Cardiac Rehabilitation: Gregory Hoang??was seen today regarding participation in the outpatient Phase 2 Cardiac Rehabilitation at [facility]. ?? The patient agrees to a referral to this program.? The referral will be sent at discharge and the patient should be contacted by the Program within 1- 2 weeks from discharge. ? Future Appointments and Orders Future Appointments Provider Department Dept Phone ?? 09/07/2017 3:00 PM LAB, THREE L Lab 3L [facility] [phone] ?? 09/07/2017 4:00 PM Luz Prescott MD Endocrinology at [facility] [phone] Future Orders Complete By Expires ?? EKG 12 Lead [EKG1 Custom] 08/14/2017 02/13/2018 ?? Process Instructions: ? Scheduling Instructions: ? Questions: ? Which location will this be performed?: [facility] ?? Is a rhythm strip needed?: No ?? If EKG Reason is Pre-op Evaluation, indicate diagnosis for surgery.: ?? XR Chest PA & Lateral (Generic) [[id number] Custom] 08/14/2017 02/13/2018 ?? Process Instructions: ? Scheduling Instructions: ? Questions: ? Where will study be performed?: [facility] ?? Portable exam?: ?? Reason for exam and clinical history: CABG x 3 ?? Other pertinent information: ?? Stat read required?: ?? Date of injury if applicable: ?? Requested Time: ?? Referral to Cardiac Rehab [LRW061 Custom] As directed ? Process Instructions: ?? If no progress note charted, please enter Clinical details in comments. ?? Scheduling Instructions: ? Questions: ? My question or request is: s/p CABG. Cardiac rehab at [facility] ? Arrangements for VNA/home care: [...] amount of sternal drainage on dressing. STACIE Tegaue notified and cleaned and redressed. Pt taken to door in wheel chair. Zulma Andres RN - 07/14/2017 2:34 PM EST The patient/access service representative has been provided a list of Home Health Agencies/DME vendors which serve their preferred geographic area. A letter describing our affiliations was reviewed with them and theywere educated about their right to choose where referrals are placed. Patient requests referral to [facility] PHONE: [phone] FAX: [phone] Expected date of discharge: 07/14 Referral routed to the Building Mechanic for matching with agency/vendor and to provide [...] day to have your insulin doses adjusted. [facility] Endocrine clinic office Kathie Carrera APRN [facility] Endocrinology Diabetes Management Pager [phone] minutes of this 35 minute visit was spent with the patient in counseling on diabetes and treatment plan, reviewing all glucose and insulin data as well as relevant laboratory results with the patient, and coordination of care on the inpatient unit including nursing and primary team. Zulma Andres, RN - 07/14/2017 10:30 AM EST The patient/access service representative has been provided a list of Home Health Agencies/DME vendors which serve their preferred geographic area. A letter describing our affiliations was reviewed with them and theywere educated about their right to choose where referrals are placed. Patient requests referral to : [facility] ([facility] [place] [facility] in [place]) PHONE: [phone] FAX: [phone]. Expected date of discharge: 07/14/17 Referral routed to the Building Mechanic for matching with agency/vendor and to provide [...] hours. If BG remains greater than 240, [id number] units (no more than three times) &??call [...] Will continue to follow Katerin Azul APRN [facility] Endocrinology Diabetes Management Pager [phone] minutes of this 25 minute visit [...] of infiltration/extravasation Discussed plan of care with DOMESTIC MAID and RN. Elevate exrtemity and apply intermittent Warm compresses. Name of MD contacted Dr. Shaw Brown 07/13/2017 @ 0624 Name of RN contacted Ale Rangel RN Name of Pharmacist if consulted NA Name of Plastics MD ( if consulted) NA (Mandatory photo for infiltrations/ extravasations scoring a stage 2 or greater, but recommended forstage 1)( include measuring tape and identifier in the photo) MOLD MAKER APPRENTICE CARING FOR THIS PATIENT WILL CONTINUE TO [...] measuring tape and identifier in the photo) MOLD MAKER APPRENTICE CARING FOR THIS PATIENT WILL CONTINUE TO [...] regard to both infiltrates addressed by this food writer.All of Mr. Hoang's responses were entirely appropriate. Images of infiltrates attached here. Martha Sharp APRN - 07/13/2017 8:01 AM EST Cardiac Surgery Progress Note: ID: [id number] 72 year old male POD#6 s/p CABGx3 [...] discharge. ?? I have met with the patient/access service representative to discuss discharge planning needs. I have provided the [facility], Office of Care Management letter from the Licensed Psychologist Director pertaining to rehab referrals. I have also provided a letter describing our affiliations within the [facility] and educated them about their right to choose where referrals are placed. ?? I reviewed the different levels of rehab including SNF, swing, acute and LTAC with the patient/access service representative. ?? The patient/access service representative has been provided a list of facilities within their preferred geographic area. ?? I have requested that the patient/access service representative provide at least three choices for referral. ?? The patient/access service representative have requested referrals to: ?? 1. . ?? 2. [facility] ?? 3. More to be entered ?? Expected date of discharge: 07/14 Note routed to Building Mechanic who will communicate referrals to facilities and [...] hours. If BG remains greater than 240, oshagr38 units (no more than three times) & [...] hours. If BG remains greater than 240, errdji00 units (no more than three times) & call for new basal insulin orders. ??If less than 240 after two hours, give no insulin and resume prior schedule. Will continue to follow Katerin Patel. STACIE Azul [facility] Endocrinology Diabetes Management Pager [phone] 20 minutes of this 35 minute visit was spent with the patient in counseling on diabetes and treatment plan, reviewing all glucose and insulin data as well as relevant laboratory results with the patient, and coordination of care on the inpatient unit including nursing and primary team. Makayla Stevenson APRN - 07/12/2017 9:52 AM EST Cardiac Surgery Progress Note: ID: [id number] 72 year old male POD#5 s/p CABGx3 [...] arrived from [facility]. VSS. MSI dressing pulled off with fresh [...] hours. If BG remains greater than 240, hecsly86 units (no more than three times) & [...] and I agree with them as documented. MARKC DIAMOND MD Makayla Wilson APRN - 07/11/2017 11:21 AM EST Cardiac Surgery Progress Note: ID: [id number] 72 year old male POD#4 s/p CABGx3 [...] hours. If BG remains greater than 240, ksyjlh47 units (no more than three times) & [...] AM EST Cardiac Surgery Progress Note: ID: [id number] 72 year old male POD#3 s/p CABGx3 [...] Gas) No results found for: PHART, PO2ART, FLG3FVW Assessment/Plan: 72 year old male POD#3 s/p [...] Encounter Note Patient Name: Gregory Hoang : [id number] MR#: [id number] Admit Date: 07/05/2017 4:20 PM Hospital Day 4 days Narrative: Patient was sitting in chair, hugging heart pillow, opened his eyes, nodding to come into room Assessment: Patient was sleepy. Intervention and Outcome: Introduced special agent group insurance services and patient reached his hand out in appreciation. Follow-up: Grinding And Polishing Laborer remains available for support. Time in Direct [...] 10:45 AM EST Report given to staffing account manager to cover care Maddison Cee PA - 07/09/2017 9:00 AM EST Cardiac Surgery Progress Note: ID: [id number] 72 year old male POD#2 s/p CABGx3 [...] Attending Surgeon on rounds. Signed: STEPHANIE Iqbal [facility] Section of Cardiac Surgery Date: 07/09/2017 Magnolia Santiago [facility] - 07/09/2017 1:[address] [...] when IABP d/c'ed. Gretchen Carolina, PT Pager [phone] Maddison Cee PA - 07/08/2017 11:27 AM EST Cardiac Surgery Progress Note: ID: [id number] 72 year old male POD#1 s/p CABGx3 [...] Attending Surgeon on rounds. Signed: STEPHANIE Iqbal [facility] Section of Cardiac Surgery Date: [...] unit. NICK SEGAL MD 07/08/2017 Jay Munoz [facility] - 07/08/2017 4:[address] [...] in place in R femoral. No hematoma. DELICATESSEN STORE MANAGER- Intact Psych- Anxious Skin- Dry, no peripheral [...] ostial segment of the ramus. Assessment: Gregory Honag is a 72 y.o. male w/ a [...] intact. IABP in place in R femoral. DELICATESSEN STORE MANAGER- Intact Psych- Anxious Skin- Dry, no peripheral [...] note for details. DAPHNE SHAHID MD Pager [phone] Jet Mckenna MD - 07/05/2017 6:48 PM EST Preliminary Cardiac Catheterization Procedure Note: Procedure(s) performed: Left heart cath, IABP insertion Access: Right APPAREL CUTTER-->8fr IABP A time-out was conducted prior to [...] effect. Heparin gtt maintained. Pt transferred to curb and gutter laborer. documented in this encounter H&P Notes Daphne Shahid MD - 07/05/2017 6:08 PM EST CARDIOLOGY HISTORY & PHYSICAL EXAM Date of Admission: 07/05/2017 ( Hospital Day 0 days ) Responsible Attending: Daphne Shahid MD PCP: Lovely Vicente MD PCP#: [phone] Patient Active Problem List Diagnosis Code ??? [...] No significant valvular disease. Taken to the curb and gutter laborer urgently for ongoing STEMI. [facility] Labs: INR 1.0 WBC 5.88 [...] no clubbing, cyanosis, or edema Assessment: Gregory Honag is a 72 y.o. male w/ a [...] monitor I/O - s/p lasix in the curb and gutter laborer, redose to aim net neg 1L [...] - ISS - hold metformin - f/u [facility] #Home Meds - continue levothyroxine 175mcg - CPAP at night # Routine - DVT PPx: heparin drip - Diet: NPO - Code Status: FULL - Dispo: [facility] Cedric Bey MD Internal Medicine, PGY-2 Cardiology S1, Team Pager # [phone] CARDIOLOGY ATTENDING NOTE Patient: Gregory Hoang Date [...] amenable for PCI. DAPHNE SHAHID MD Pager [phone] documented in this encounter Miscellaneous Notes Consult Note - Daphne Shahid MD - 07/14/2017 11:46 AM EST Heart Failure Service Inpatient Consult Note Gregory Hoang Date of : 1945 Age: 72 y.o. Today's date: 07/14/17 PCP: Lovely Vicente MD HIGH WORKER: None [facility] of Service: [facility] [...] SETUP performed by Manny Mcknight MD at [facility] MAIN OR ??? PRO CABG, ARTERIAL, SINGLE N/A 07/07/2017 @CABG, USING ARTERIAL GRAFT;SINGLE ARTERIAL GRAFT (WRVU 33.75) performed by Yuan Webber MD at [facility] MAIN OR ??? PRO CABG, ARTERY-VEIN, TWO N/A 07/07/2017 @CABG, TWO VENOUS GRAFTS & ARTERIAL GRAFT (WRVU 7.93) performed by Yuan Webber MD at [facility] MAIN OR ??? PRO COLONOSCOPY, REMV LESN, SNARE 01/16/2014 COLONOSCOPY, POLYPECTOMY, REMOVAL LESION BY SNARE performed by Nohemi Jaimes MD at [facility] ENDOSCOPY ??? PRO ENDOSCOPY W/VIDEO-ASST VEIN HARVEST, CABG Right 07/07/2017 ENDOSCOPIC HARVEST VEIN(S) FOR CABG (WRVU 0.31) performed by Yuan Webber MD at [facility] MAIN OR ??? PRO THYROIDECTOMY 03/28/2013 THYROIDECTOMY, TOTAL OR COMPLETE performed by Manny Mcknight MD at [facility] MAIN OR Outpt Meds: Current Outpatient Prescriptions [...] following studies: EKG 07/14/17: NSR 75 bpm, DINING ROOM HOST anterior infarct, LAD CXR 07/11/17: FINDINGS: Sternotomy wires. The patient has been extubated, left chest tube removed, and Stanfield-Suzi catheter removed since the 07/07/2017 study. Atelectasis [...] was discussed with Zehra. Jaden Kelley MD X Ray Service Technician Pager [phone] CARDIOLOGY ATTENDING NOTE Patient: Gregory Hoang Date [...] heart failure clinic. DAPHNE SHAHID MD Pager [phone] Plan of Care - Alden Chavarria, GRAPHIC PRE PRESS TRADES WORKER - 07/14/2017 11:35 AM EST Problem: Patient [...] Discharge Disposition: home with assist Alden Chavarria, GRAPHIC PRE PRESS TRADES WORKER Pager: [phone] Inpatient Physical Therapy Problem: Acute Rehab Services [...] sit/sit to supine -- Bed Mobility Goal, Butts Level supervision required -- Bed Mobility Goal, [...] - 3 days -- Gait Training Goal, Butts Level supervision required -- Gait Training Goal, [...] days -- Transfer Training Goal, Activity Type lhr-cl-hssyi/glgta-lu-myn;xhy-gt-djbjp/hgrms-uq-ozp;toilet -- Transfer Train Goal, Butts Level supervision required -- Transfer Training Goal, [...] keeping present for 2 days per family. Financial Management noted of frustrations, house keeping sent to room. Patient offered showered twice, refused. at bedside, frustrated that shower not complete, informed that patient had refused several times. requesting to see CHEESE CUTTER, paged sent to Martha, will come to bedside (middle of consult). not willing to wait, Martha notified that family had gone home. Encouraged to come for morning rounds a t 8am. Diabetes team at bedside - insulin adjustments made. Call cabello in reach. Continue to monitor. PLAN MOVING FORWARD: Ambulate, dressing changes BID, Please change drsg at 4am per Martha CHEESE CUTTER request. INDIVIDUALIZED FALL PREVENTION INTERVENTIONS: Patient-specific fall [...] levels on the lower side, 60ml of Frontier juice given after a FS of 80. [...] Conf 07/13/17 0502 Interdisciplinary Rounds/Family Conf Participants senior case manager;dietitian/nutrition services;nursing;occupational therapy;patient;pharmacy;physical therapy;physician Plan of [...] Anticipated Discharge Disposition: home with assist Pager: [phone] CLARISSA SEGAL, PT 07/12/2017 Physical Therapy Rehabilitation [...] to sit/sit to supine Bed Mobility Goal, Butts Level supervision required Bed Mobility Goal, Additional Goal adheres to psternal precautions for transfer Goal: Gait Training Goal Stand Alone Therapy Goal Outcome: Ongoing (Interventions Implemented as Appropriate) 07/12/17 1225 Gait Training Goal Gait Training Goal, Date Established 07/12/17 Gait Training Goal, Time to Achieve 2 - 3 days Gait Training Goal, Butts Level supervision required Gait Training Goal, Assist [...] 3 days Transfer Training Goal, Activity Type man-cl-ihknq/qmzkr-rz-vav;oza-vt-tcyhr/cmcwd-gm-hue;toilet Transfer Train Goal, Butts Level supervision required Transfer Training Goal, Additional Goal adheres to sternal precautions during transfer Consult Note - Octavia Vaughn RN - 07/12/2017 10:50 AM EST [facility] CARDIAC REHABILITATION Gregory Hoang was seen today regarding participation in the outpatient Phase 2 Cardiac Rehabilitation at [facility]. The patient agrees to a [...] IV site, amio to other piv and ENTREPRENEUR at bedside to help assess, IV removed. [...] Outcome: Ongoing (Interventions Implemented as Appropriate) 07/11/17199907/11/17200907/12/17 [facility] Daily Care Interventions Self-Care Promotion [...] staff, he stood and marched in place. [place] weak, wanting to sit back down. Remained [...] Outcome: Ongoing (Interventions Implemented as Appropriate) 07/05/17 [id number] Mutuality/Individual Preferences What Anxieties, Fears or Concerns [...] Health/Prescription Coverage: Primary Insurance: MEDICARE Secondary Insurance: [employer] [place] Prescription Coverage: yes Preferred Pharmacy: [facility] [place] Other: none Primary Care Provider: Lovely Vicente MD [phone] Patient/Caregiver Goals of Treatment:live and get my breath back Potential Needs for Transition of Care: Rehab/SNF: [facility] Home Health: NA DME: TBD Dialysis: na Community Resources: available Transportation: yes Other: none Anticipated Barriers to Discharge/Special Considerations: none Plan: Likely SNF Rehab before home A member of the Care Management team will continue to monitor progress, follow for continuity of care and assist with transition of care planning. ERLIN Weiss Pager: [phone] Consult Note - Katerin Azul RN - [...] at this time Labs: Results for GREGORY OHANG ( ) as of 07/09/2017 13:24 Ref. [...] potential to d/c gtt and start CF. [facility] diabetes care: Medications - Outpatient treatment regimen recommendations pending based on the hospital course. Monitoring - continue BG tid ac & hs Diet - low fat/low carb diet Exercise - weight-bearing exercise 30 min/day, as tolerated Thank you for allowing us to provide care for your patient W/E coverage, Dr. Jeane Tatum, pager [phone] Katerin Patel. 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 In this [...] Full Code Katty Jovani, MS3 [facility] Cardiology S1 (Pager [phone]) Plan of Care - Emelia Ibarra RN [...] hospital and ruled infor non-ST segment elevation [place]. This almost certainly represents the residual of [...] SETUP performed by Manny Mcknight MD at [facility] MAIN OR ??? PRO COLONOSCOPY, REMV LESN, SNARE 01/16/2014 COLONOSCOPY, POLYPECTOMY, REMOVAL LESION BY SNARE performed by Nohemi Jaimes MD at [facility] ENDOSCOPY ??? PRO THYROIDECTOMY 03/28/2013 THYROIDECTOMY, TOTAL OR COMPLETE performed by Manny Mcknight MD at [facility] MAIN OR Social History: Social History Social [...] with other involved physicians Yuan Webber MD [phone] Med Student Progress Note - Jovani Katty [...] major CV events such as , stroke, [place], repeat revascularization compared to PCI). 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 Lasix given in curb and gutter laborer, 1.4 L out at this time. [...] Nobles MD [facility] CARDIOLOGY [place], [place] [address] ( lissa) 06/10/2022 Office Visit Dermatology Laura Scherer MD [facility] [address] [place], [place] [address] (Wo lissa) Scheduled Orders Name [...] procedure are i n the results section. HOME ASSESSMENT NURSE SCAN 07/15/2017 12:00 Res ults for this [...] Routine 07/08/2017 4:00 Results f or this ([facility]) AM EST procedure are i n the [...] Yes 07/07/2017 1:35 CAD [facility]RAFT [facility] 7.93) @CABG, USING ARTERIAL [...] Routine 07/06/2017 7:40 Results f or this ([facility]) PM EST procedure are i n the [...] Timed 07/06/2017 2:10 Results f or this ([facility]) PM EST procedure are i n the [...] section. TYPE AND SCREEN Routine 07/06/2017 12:00 ([facility]/SHANDA) PM EST APTT STAT 07/06/2017 11:24 Results [...] Routine 07/06/2017 8:10 Results f or this ([facility]) AM EST procedure are i n the [...] Routine 07/06/2017 2:20 Results f or this ([facility]) AM EST procedure are i n the [...] Routine 07/05/2017 8:20 Results f or this ([facility]) PM EST procedure are i n the [...] Timed 07/05/2017 4:55 Results f or this ([facility]) PM EST procedure are i n the [...] [place] at 08/19/2017 10:30 AM Martha Teague CASHIER TICKET SELLING IMG DX ORDERABLES SCAN DOC: HOME ASSESSMENT NURSE (07/15/2017 12:00 AM EST) Narrative 07/15/2017 12:00 [...] Signature POC Glucose 186 65 - 199 [facility] Comment: Supplemental ranges: <140 mg/dL before meals <180 mg/dL all other times of the day Specimen Anatomical Collection Method Collection Time Receive d Time (Source) Location / / Volume Laterality Blood specimen 07/14/2017 11:56 7 (specimen) AM EST 11:56 AM EST Yuan Webber MD POINT OF CARE TEST ORDERABLE S Performing Organization Address City/State/[place] [address] POCT Glucose (07/14/2017 7:52 AM EST) athologist Signature POC Glucose 126 65 - 199 [facility]dL [facility] Comment: Supplemental ranges: <140 mg/dL before meals <180 mg/dL all other times of the day Specimen Anatomical Collection Method Collection Time Receive d Time (Source) Location / / Volume Laterality Blood specimen 07/14/2017 7:52 AM 017 7:52 (specimen) EST AM EST Yuan Webber MD POINT OF CARE TEST ORDERABLE S Performing Organization Address City/State/[place] [address] (ABNORMAL) Prothrombin Time (07/14/2017 4:46 AM EST) P athologist Signature PT 26.4 (H) 11.8 - 14.0 [facility] LABORATORY INR 2.4 (H) 0.9 [...] Wilson APRN HEMATOLOGY ORDERABLES Performing Organization Address City/[facility]/[place] [address] Potassium (07/14/2017 4:46 AM EST) athologist Signature Potassium 4.3 3.5 - 5.0 [facility] mmol/L [facility] Comment: Please note: ??Patients [...] Wilson APRN CHEMISTRY ORDERABLES Performing Organization Address City/[facility]/[place] [address] POCT Glucose (07/14/2017 4:34 AM EST) athologist Signature POC Glucose 115 65 - 199 [facility] mg/dL [facility] Comment: Supplemental ranges: <140 mg/dL before meals <180 mg/dL all other times of the day Specimen Anatomical Collection Method Collection Time Receive d Time (Source) Location / / Volume Laterality Blood specimen 07/14/2017 4:34 AM 017 4:34 (specimen) EST AM EST Yuan Webber MD POINT OF CARE TEST ORDERABLE S Performing Organization Address City/[facility]/ZIP Code Phon e Number [address] POCT Glucose (07/13/2017 11:33 PM EST) athologist Signature POC Glucose 132 65 - 199 [facility] mg/dL [facility] Comment: Supplemental ranges: <140 mg/dL before meals <180 mg/dL all other times of the day Specimen Anatomical Collection Method Collection Time Receive d Time (Source) Location / / Volume Laterality Blood specimen 07/13/2017 11:33 7 (specimen) PM EST 11:33 PM EST Yuan Webber MD POINT OF CARE TEST ORDERABLE S Performing Organization Address City/State/[place] [address] POCT Glucose (07/13/2017 9:25 PM EST) athologist Signature POC Glucose 121 65 - 199 [place] mg/dL [facility] Comment: Supplemental ranges: <140 mg/dL before meals <180 mg/dL all other times of the day Specimen Anatomical Collection Method Collection Time Receive d Time (Source) Location / / Volume Laterality Blood specimen 07/13/2017 9:25 PM 017 9:25 (specimen) EST PM EST Yuan Webber MD POINT OF CARE TEST ORDERABLE S Performing Organization Address City/State/[place] [address] POCT Glucose (07/13/2017 4:55 PM EST) athologist Signature POC Glucose 79 65 - 199 [place] mg/dL [facility] Comment: Supplemental ranges: <140 mg/dL before meals <180 mg/dL all other times of the day Specimen Anatomical Collection Method Collection Time Receive d Time (Source) Location / / Volume Laterality Blood specimen 07/13/2017 4:55 PM 017 4:55 (specimen) EST PM EST Yuan Webber MD POINT OF CARE TEST ORDERABLE S Performing Organization Address City/State/[place] [address] POCT Glucose (07/13/2017 11:16 AM EST) athologist Signature POC Glucose 163 65 - 199 [facility] mg/dL [facility] Comment: Supplemental ranges: <140 mg/dL before meals <180 mg/dL all other times of the day Specimen Anatomical Collection Method Collection Time Receive d Time (Source) Location / / Volume Laterality Blood specimen 07/13/2017 11:16 7 (specimen) AM EST 11:16 AM EST Yuan Webber MD POINT OF CARE TEST ORDERABLE S Performing Organization Address City/State/[place] [address] POCT Glucose (07/13/2017 8:07 AM EST) athologist Signature POC Glucose 96 65 - 199 [facility] mg/dL [facility] Comment: Supplemental ranges: <140 mg/dL before meals <180 mg/dL all other times of the day Specimen Anatomical Collection Method Collection Time Receive d Time (Source) Location / / Volume Laterality Blood specimen 07/13/2017 8:07 AM 017 8:07 (specimen) EST AM EST Yuan Webber MD POINT OF CARE TEST ORDERABLE S Performing Organization Address City/[facility]/[place] [address] (ABNORMAL) Prothrombin Time (07/13/2017 4:26 AM EST) athologist Signature PT 20.8 (H) 11.8 - 14.0 [facility] LABORATORY INR 1.8 (H) 0.9 [...] Organization Address City/State/[place] [address] (ABNORMAL) Basic Metabolic Panel (non-fasting) (07/13/2017 4:26 AM EST) athologist Signature Glucose Lvl 95 65 - 199 [facility] mg/dL [facility] Comment: Diabetes: >=200 mg/dL plus symp toms BUN 25 (H) 10 - 20 mg/dL [facility] Creatinine 1.19 0.80 - 1.50 mg/dL [facility] Sodium 143 135 - 145 mmol/L [facility] Potassium 3.7 3.5 - 5.0 mmol/L [facility] [...] Calcium 7.7 (L) 8.5 - 10.5 mg/dL [facility] Estimated GFR 60 >=60 [facility] Comment: The reported eGFR should be multiplied b y 1.2 for patients. The MDRD is not an appropriate measure o f renal function for patients with body mass extremes or in patients with acute kidney failure. http://[employer]/DHnkdep http://[employer]/DHMCnkf Specimen Anatomical Collection Method Collection Time Receive d Time (Source) Location / / Volume Laterality Blood specimen 07/13/2017 4:26 AM 017 4:46 (specimen) EST AM EST Resulting Agency Comment Spec In Lab Makayla Wilson APRN CHEMISTRY ORDERABLES Performing Organization Address City/State/ZIP [place] [address] POCT Glucose (07/13/2017 3:52 AM EST) athologist Signature POC Glucose 93 65 - 199 [facility] mg/dL [facility] Comment: Supplemental ranges: <140 mg/dL before meals <180 mg/dL all other times of the day Specimen Anatomical Collection Method Collection Time Receive d Time (Source) Location / / Volume Laterality Blood specimen 07/13/2017 3:52 AM 017 3:52 (specimen) EST AM EST Yuan Webber MD POINT OF CARE TEST ORDERABLE S Performing Organization Address City/State/[place] [address] POCT Glucose (07/13/2017 12:21 AM EST) athologist Signature POC Glucose 80 65 - 199 [place] mg/dL [facility] Comment: Supplemental ranges: <140 mg/dL before meals <180 mg/dL all other times of the day Specimen Anatomical Collection Method Collection Time Receive d Time (Source) Location / / Volume Laterality Blood specimen 07/13/2017 12:21 7 (specimen) AM EST 12:21 AM EST Yuan Webber MD POINT OF CARE TEST ORDERABLE S Performing Organization Address City/State/ZIP Code Phon e Number [address] POCT Glucose (07/12/2017 8:22 PM EST) athologist Signature POC Glucose 119 65 - 199 [place] mg/dL [facility] Comment: Supplemental ranges: <140 mg/dL before meals <180 mg/dL all other times of the day Specimen Anatomical Collection Method Collection Time Receive d Time (Source) Location / / Volume Laterality Blood specimen 07/12/2017 8:22 PM 017 8:22 (specimen) EST PM EST Yuan Webber MD POINT OF CARE TEST ORDERABLE S Performing Organization Address City/State/ZIP Code Phon e Number [address] POCT Glucose (07/12/2017 4:02 PM EST) athologist Signature POC Glucose 114 65 - 199 [facility] mg/dL [facility] Comment: Supplemental ranges: <140 mg/dL before meals <180 mg/dL all other times of the day Specimen Anatomical Collection Method Collection Time Receive d Time (Source) Location / / Volume Laterality Blood specimen 07/12/2017 4:02 PM 017 4:02 (specimen) EST PM EST Yuan Webber MD POINT OF CARE TEST ORDERABLE S Performing Organization Address City/State/[place] [address] POCT Glucose (07/12/2017 11:28 AM EST) athologist Signature POC Glucose 164 65 - 199 [place] mg/dL [facility] Comment: Supplemental ranges: <140 mg/dL before meals <180 mg/dL all other times of the day Specimen Anatomical Collection Method Collection Time Receive d Time (Source) Location / / Volume Laterality Blood specimen 07/12/2017 11:28 7 (specimen) AM EST 11:28 AM EST Yuan Webber MD POINT OF CARE TEST ORDERABLE S Performing Organization Address City/State/[place] [address] POCT Glucose (07/12/2017 7:34 AM EST) athologist Signature POC Glucose 109 65 - 199 [place] mg/dL [facility] Comment: Supplemental ranges: <140 mg/dL before meals <180 mg/dL all other times of the day Specimen Anatomical Collection Method Collection Time Receive d Time (Source) Location / / Volume Laterality Blood specimen 07/12/2017 7:34 AM 017 7:34 (specimen) EST AM EST Yuan Webber MD POINT OF CARE TEST ORDERABLE S Performing Organization Address City/State/[place] [address] (ABNORMAL) Basic Metabolic Panel (non-fasting) (07/12/2017 4:11 AM EST) athologist Signature Glucose Lvl 92 65 - 199 [place] mg/dL [facility] Comment: Diabetes: >=200 mg/dL plus symp toms BUN 31 (H) 10 - 20 mg/dL [facility] Creatinine 1.23 0.80 - 1.50 mg/dL [facility] Sodium 145 135 - 145 mmol/L [facility] Potassium Not Perf 3.5 - 5.0 mmol/L [facility] Comment: Duplicate order Please note: [...] Gap Not Calculated 5 - 15 mmol/L [facility] Calcium 8.1 (L) 8.5 - 10.5 mg/dL [facility] Estimated GFR 58 (L) >=60 [facility] Comment: The reported eGFR should be multiplied b y 1.2 for patients. The MDRD is not an appropriate measure o f renal function for patients with body mass extremes or in patients with acute kidney failure. http://[employer]/DHnkdep http://[employer]/DHMCnkf Specimen Anatomical Collection Method Collection Time Receive d Time (Source) Location / / Volume Laterality Blood specimen 07/12/2017 4:11 AM 017 8:57 (specimen) EST AM EST Resulting Agency Comment Spec In Lab Makayla Wilson APRN CHEMISTRY ORDERABLES Performing Organization Address City/State/ZIP [place] [address] (ABNORMAL) Prothrombin Time (07/12/2017 4:11 AM EST) P athologist Signature PT 15.4 (H) 11.8 - 14.0 [facility] LABORATORY INR 1.2 (H) 0.9 [...] Wilson STACIE HEMATOLOGY ORDERABLES Performing Organization Address City/[facility]/ZIP Code Phon e Number [address] Potassium (07/12/2017 4:11 AM EST) athologist Signature Potassium 3.8 3.5 - 5.0 [facility] mmol/L [facility] Comment: Please note: ??Patients [...] Wilson STACIE CHEMISTRY ORDERABLES Performing Organization Address City/[facility]/[place] [address] POCT Glucose (07/12/2017 4:10 AM EST) athologist Signature POC Glucose 90 65 - 199 [facility] mg/dL [facility] Comment: Supplemental ranges: <140 mg/dL before meals <180 mg/dL all other times of the day Specimen Anatomical Collection Method Collection Time Receive d Time (Source) Location / / Volume Laterality Blood specimen 07/12/2017 4:10 AM 017 4:10 (specimen) EST AM EST Yuan Webber MD POINT OF CARE TEST ORDERABLE S Performing Organization Address City/State/[place] [address] POCT Glucose (07/11/2017 11:57 PM EST) athologist Signature POC Glucose 98 65 - 199 [facility] Comment: Supplemental ranges: <140 mg/dL before meals <180 mg/dL all other times of the day Specimen Anatomical Collection Method Collection Time Receive d Time (Source) Location / / Volume Laterality Blood specimen 07/11/2017 11:57 7 (specimen) PM EST 11:57 PM EST Yuan Webber MD POINT OF CARE TEST ORDERABLE S Performing Organization Address City/[facility]/[place] [address] POCT Glucose (07/11/2017 8:32 PM EST) athologist Signature POC Glucose 146 65 - 199 [facility] mg/dL [facility] Comment: Supplemental ranges: <140 mg/dL before meals <180 mg/dL all other times of the day Specimen Anatomical Collection Method Collection Time Receive d Time (Source) Location / / Volume Laterality Blood specimen 07/11/2017 8:32 PM 017 8:32 (specimen) EST PM EST Yuan Webber MD POINT OF CARE TEST ORDERABLE S Performing Organization Address City/State/[place] [address] XR Chest PA & [...] e xtubated, left chest tube removed, and Stanfield-Suzi catheter removed since the study. Atelectasis at [...] e xtubated, left chest tube removed, and Stanfield-Suzi catheter removed since the study. Atelectasis at [...] POC Glucose 223 (H) 65 - 199 [facility] Comment: Supplemental ranges: <140 mg/dL before meals <180 mg/dL all other times of the day Specimen Anatomical Collection Method Collection Time Receive d Time (Source) Location / / Volume Laterality Blood specimen 07/11/2017 4:05 PM 017 4:05 (specimen) EST PM EST Yuan Webber MD POINT OF CARE TEST ORDERABLE S Performing Organization Address City/State/ZIP [place] [address] POCT Glucose (07/11/2017 11:55 AM EST) athologist Signature POC Glucose 176 65 - 199 [facility] mg/dL [facility] Comment: Supplemental ranges: <140 mg/dL before meals <180 mg/dL all other times of the day Specimen Anatomical Collection Method Collection Time Receive d Time (Source) Location / / Volume Laterality Blood specimen 07/11/2017 11:55 7 (specimen) AM EST 11:55 AM EST Yuan Webber MD POINT OF CARE TEST ORDERABLE S Performing Organization Address City/State/[place] [address] POCT Glucose (07/11/2017 7:53 AM EST) athologist Signature POC Glucose 189 65 - 199 [place] mg/dL [facility] Comment: Supplemental ranges: <140 mg/dL before meals <180 mg/dL all other times of the day Specimen Anatomical Collection Method Collection Time Receive d Time (Source) Location / / Volume Laterality Blood specimen 07/11/2017 7:53 AM 017 7:53 (specimen) EST AM EST Yuan Webber MD POINT OF CARE TEST ORDERABLE S Performing Organization Address City/State/[place] [address] POCT Glucose (07/11/2017 4:22 AM EST) athologist Signature POC Glucose 151 65 - 199 [place] mg/dL [facility] Comment: Supplemental ranges: <140 mg/dL before meals <180 mg/dL all other times of the day Specimen Anatomical Collection Method Collection Time Receive d Time (Source) Location / / Volume Laterality Blood specimen 07/11/2017 4:22 AM 017 4:22 (specimen) EST AM EST Yuan Webber MD POINT OF CARE TEST ORDERABLE S Performing Organization Address City/State/ZIP Code Phon e Number [address] Potassium (07/11/2017 2:20 AM EST) athologist Signature Potassium 4.5 3.5 - 5.0 [facility] mmol/L [facility] Comment: Please note: ??Patients [...] Organization Address City/State/ZIP Code Phon e Number [address] POCT Glucose (07/11/2017 12:17 AM EST) athologist Signature POC Glucose 162 65 - 199 [facility]/dL [facility] Comment: Supplemental ranges: <140 mg/dL before meals <180 mg/dL all other times of the day Specimen Anatomical Collection Method Collection Time Receive d Time (Source) Location / / Volume Laterality Blood specimen 07/11/2017 12:17 7 (specimen) AM EST 12:17 AM EST Yuan Webber MD POINT OF CARE TEST ORDERABLE S Performing Organization Address City/[facility]/ZIP Code Phon e Number [address] POCT Glucose (07/10/2017 8:47 PM EST) athologist Signature POC Glucose 191 65 - 199 [facility] mg/dL [facility] Comment: Supplemental ranges: <140 mg/dL before meals <180 mg/dL all other times of the day Specimen Anatomical Collection Method Collection Time Receive d Time (Source) Location / / Volume Laterality Blood specimen 07/10/2017 8:47 PM 017 8:47 (specimen) EST PM EST Yuan Webber MD POINT OF CARE TEST ORDERABLE S Performing Organization Address City/[facility]/ZIP [facility] Phon [place] Number [address] POCT Glucose (07/10/2017 4:06 PM EST) athologist Signature POC Glucose 131 65 - 199 [place] mg/dL [facility] Comment: Supplemental ranges: <140 mg/dL before meals <180 mg/dL all other times of the day Specimen Anatomical Collection Method Collection Time Receive d Time (Source) Location / / Volume Laterality Blood specimen 07/10/2017 4:06 PM 017 4:06 (specimen) EST PM EST Yuan Webber MD POINT OF CARE TEST ORDERABLE S Performing Organization Address City/State/ZIP Code Phon e Number [address] POCT Glucose (07/10/2017 3:08 PM EST) athologist Signature POC Glucose 151 65 - 199 [place] mg/dL [facility] Comment: Supplemental ranges: <140 mg/dL before meals <180 mg/dL all other times of the day Specimen Anatomical Collection Method Collection Time Receive d Time (Source) Location / / Volume Laterality Blood specimen 07/10/2017 3:08 PM 017 3:08 (specimen) EST PM EST Yuan Webber MD POINT OF CARE TEST ORDERABLE S Performing Organization Address City/State/ZIP Code Phon e Number [address] POCT Glucose (07/10/2017 2:25 PM EST) athologist Signature POC Glucose 146 65 - 199 [place] mg/dL [facility] Comment: Supplemental ranges: <140 mg/dL before meals <180 mg/dL all other times of the day Specimen Anatomical Collection Method Collection Time Receive d Time (Source) Location / / Volume Laterality Blood specimen 07/10/2017 2:25 PM 017 2:25 (specimen) EST PM EST Yuan Webber MD POINT OF CARE TEST ORDERABLE S Performing Organization Address City/State/ZIP Code Phon e Number [address] POCT Glucose (07/10/2017 1:23 PM EST) athologist Signature POC Glucose 166 65 - 199 [place] mg/dL [facility] Comment: Supplemental ranges: <140 mg/dL before meals <180 mg/dL all other times of the day Specimen Anatomical Collection Method Collection Time Receive d Time (Source) Location / / Volume Laterality Blood specimen 07/10/2017 1:23 PM 017 1:23 (specimen) EST PM EST Yuan Webber MD POINT OF CARE TEST ORDERABLE S Performing Organization Address City/State/[place] [address] POCT Glucose (07/10/2017 11:52 AM EST) P athologist Signature POC Glucose 157 65 - 199 [facility] RYAN mg/dL [facility] Comment: Supplemental ranges: <140 mg/dL before meals <180 mg/dL all other times of the day Specimen Anatomical Collection Method Collection Time Receive d Time (Source) Location / / Volume Laterality Blood specimen 07/10/2017 11:52 7 (specimen) AM EST 11:52 AM EST Yuan Webber MD POINT OF CARE TEST ORDERABLE S Performing Organization Address City/State/[place] [address] POCT Glucose (07/10/2017 11:01 AM EST) P athologist Signature POC Glucose 158 65 - 199 [place] mg/dL [facility] Comment: Supplemental ranges: <140 mg/dL before meals <180 mg/dL all other times of the day Specimen Anatomical Collection Method Collection Time Receive d Time (Source) Location / / Volume Laterality Blood specimen 07/10/2017 11:01 7 (specimen) AM EST 11:01 AM EST Yuan Webber MD POINT OF CARE TEST ORDERABLE S Performing Organization Address City/State/ZIP Code Phon e Number [address] POCT Glucose (07/10/2017 9:54 AM EST) P athologist Signature POC Glucose 160 65 - 199 [facility] RYAN mg/dL [facility] Comment: Supplemental ranges: <140 mg/dL before meals <180 mg/dL all other times of the day Specimen Anatomical Collection Method Collection Time Receive d Time (Source) Location / / Volume Laterality Blood specimen 07/10/2017 9:54 AM 017 9:54 (specimen) EST AM EST Yuan Webber MD POINT OF CARE TEST ORDERABLE S Performing Organization Address City/State/ZIP Code Phon e Number [address] POCT Glucose (07/10/2017 8:58 AM EST) athologist Signature POC Glucose 183 65 - 199 [place] mg/dL [facility] Comment: Supplemental ranges: <140 mg/dL before meals <180 mg/dL all other times of the day Specimen Anatomical Collection Method Collection Time Receive d Time (Source) Location / / Volume Laterality Blood specimen 07/10/2017 8:58 AM 017 8:58 (specimen) EST AM EST Yuan Webber MD POINT OF CARE TEST ORDERABLE S Performing Organization Address City/State/ZIP Code Phon e Number [address] POCT Glucose (07/10/2017 8:01 AM EST) athologist Signature POC Glucose 173 65 - 199 [place] mg/dL [facility] Comment: Supplemental ranges: <140 mg/dL before meals <180 mg/dL all other times of the day Specimen Anatomical Collection Method Collection Time Receive d Time (Source) Location / / Volume Laterality Blood specimen 07/10/2017 8:01 AM 017 8:01 (specimen) EST AM EST Yuan Webber MD POINT OF CARE TEST ORDERABLE S Performing Organization Address City/State/[place] [address] POCT Glucose (07/10/2017 7:05 AM EST) athologist Signature POC Glucose 166 65 - 199 [place] RY[place] mg/dL [facility] Comment: Supplemental ranges: <140 mg/dL before meals <180 mg/dL all other times of the day Specimen Anatomical Collection Method Collection Time Receive d Time (Source) Location / / Volume Laterality Blood specimen 07/10/2017 7:05 AM 017 7:05 (specimen) EST AM EST Yuan Webber MD POINT OF CARE TEST ORDERABLE S Performing Organization Address City/State/[place] [address] POCT Glucose (07/10/2017 6:00 AM EST) P athologist Signature POC Glucose 162 65 - 199 [facility] mg/dL [facility] Comment: Supplemental ranges: <140 mg/dL before meals <180 mg/dL all other times of the day Specimen Anatomical Collection Method Collection Time Receive d Time (Source) Location / / Volume Laterality Blood specimen 07/10/2017 6:00 AM 017 6:00 (specimen) EST AM EST Yuan Webber MD POINT OF CARE TEST ORDERABLE S Performing Organization Address City/State/[place] [address] (ABNORMAL) Differential, Automated (07/10/2017 4:28 AM EST) Patholo gist Method Time Signature Neutrophils % 87.9 % [facility] LABORATORY Neutr Abs (ANC) 10.70 (H) 1.70 - [facility] 6.10 [facility] x10(3)/[facility] L LABORATORY Lymphocytes % 3.9 % [facility] Lymphocytes Abs 0.5 (L) 0.9 - 3.2 [facility] x10(3)/[facility] LABORATORY Monocytes % 7.0 % [facility] Monocyte Abs 0.8 0.3 - 0.9 [facility] x10(3)/[facility] LABORATORY Eosinophils % 0.3 % [facility]OR[facility]ORY Eosinophils Abs 0.0 0.0 - 0.4 [facility] x10(3)/[facility] LABORATORY Basophils % 0.2 % [facility]OR[facility] Basophils Abs 0.0 0.0 - 0.1 [facility] x10(3)/[facility] LABORATORY Immature Gran % 0.70 [...] 0.08 (H) 0.00 - 0.04 x10(3)/[facility] LABORATORY Specimen Anatomical Collection Method Collection Time Receive d Time (Source) Location / / Volume Laterality Blood specimen 07/10/2017 4:28 AM 017 4:36 (specimen) EST AM EST Resulting Agency Comment Spec In Lab Yuan Webber MD HEMATOLOGY ORDERABLES Performing Organization Address City/State/[place] [address] (ABNORMAL) Hemogram (07/10/2017 4:28 AM EST) Analysis Performed At Patho logist Time Signature WBC 12.2 (H) 4.0 - 9.5 [facility] x10(3)/[facility] LABORATORY RBC 3.31 (L) 4.58 - [facility] 5.54 [facility] x10(6)/[facility] LABORATORY Hemoglobin 9.8 (L) 13.7 - [facility] 16.5 gm/dL [facility] Hematocrit 30.0 (L) 40.5 - [facility] 48.5 % [facility] MCV 90.6 82.9 - [facility] 93.1 [facility] LABORATORY MCH 29.6 27.5 - [place] 32.1 pg [facility] MCHC 32.7 32.0 - [facility] 35.7 gm/dL [facility] Platelets 135 (L) 145 - 357 [facility] x10(3)/[facility] LABORATORY RDWSD 50.8 (H) 36.0 - [facility] 45.0 [facility] RDWCV 15.4 (H) 11.4 - [facility] 13.8 % [facility] MPV 10.0 7.6 - 12.9 [facility] LABORATORY nRBC % Auto 0.0 % [facility] LABORATORY nRBC Abs Auto 0.000 0.000 - [facility] 0.000 [facility] x10(3)/[facility] LABORATORY Specimen Anatomical Collection Method Collection Time Receive d Time (Source) Location / / Volume Laterality Blood specimen 07/10/2017 4:28 AM 017 4:36 (specimen) EST AM EST Resulting Agency Comment Spec In Lab Yuan Webber MD HEMATOLOGY ORDERABLES Performing Organization Address City/State/ZIP [place] [address] (ABNORMAL) Basic Metabolic Panel (non-fasting) (07/10/2017 4:28 AM EST) P athologist Signature Glucose Lvl 178 65 - 199 [facility] mg/dL [facility] Comment: Diabetes: >=200 mg/dL [...] Calcium 7.4 (L) 8.5 - 10.5 mg/dL [facility] LABORATORY Estimated GFR 60 >=60 [facility] Comment: The reported eGFR should be multiplied b y 1.2 for patients. The MDRD is not an appropriate measure o f renal function for patients with body mass extremes or in patients with acute kidney failure. http://[employer]Easycause/DHnkdep http://[employer]Easycause/DHMCnkf Specimen Anatomical Collection Method Collection Time Receive d Time (Source) Location / / Volume Laterality Blood specimen 07/10/2017 4:28 AM 017 4:36 (specimen) EST AM EST Resulting Agency Comment Spec In Lab Yuan Webber MD CHEMISTRY ORDERABLES Performing Organization Address City/State/ZIP Code Phon e Number [address] POCT Glucose (07/10/2017 4:26 AM EST) athologist Signature POC Glucose 176 65 - 199 [place] mg/dL [facility] Comment: Supplemental ranges: <140 mg/dL before meals <180 mg/dL all other times of the day Specimen Anatomical Collection Method Collection Time Receive d Time (Source) Location / / Volume Laterality Blood specimen 07/10/2017 4:26 AM 017 4:26 (specimen) EST AM EST Yuan Webber MD POINT OF CARE TEST ORDERABLE S Performing Organization Address City/[facility]/[place] [address] (ABNORMAL) POCT Glucose (07/10/2017 3:06 AM EST) athologist Signature POC Glucose 204 (H) 65 - 199 [place] mg/dL [facility] Comment: Supplemental ranges: <140 mg/dL before meals <180 mg/dL all other times of the day Specimen Anatomical Collection Method Collection Time Receive d Time (Source) Location / / Volume Laterality Blood specimen 07/10/2017 3:06 AM 017 3:06 (specimen) EST AM EST Yuan Webber MD POINT OF CARE TEST ORDERABLE S Performing Organization Address City/[facility]/[place] [address] (ABNORMAL) POCT Glucose (07/10/2017 2:10 AM EST) athologist Signature POC Glucose 203 (H) 65 - 199 [place] mg/dL [facility] Comment: Supplemental ranges: <140 mg/dL before meals <180 mg/dL all other times of the day Specimen Anatomical Collection Method Collection Time Receive d Time (Source) Location / / Volume Laterality Blood specimen 07/10/2017 2:10 AM 017 2:10 (specimen) EST AM EST Yuan Webber MD POINT OF CARE TEST ORDERABLE S Performing Organization Address City/State/ZIP Code Phon e Number [address] POCT Glucose (07/10/2017 1:09 AM EST) P athologist Signature POC Glucose 196 65 - 199 [place] mg/dL [facility] Comment: Supplemental ranges: <140 mg/dL before meals <180 mg/dL all other times of the day Specimen Anatomical Collection Method Collection Time Receive d Time (Source) Location / / Volume Laterality Blood specimen 07/10/2017 1:09 AM 017 1:09 (specimen) EST AM EST Yuan Webber MD POINT OF CARE TEST ORDERABLE S Performing Organization Address City/State/ZIP Code Phon e Number [address] POCT Glucose (07/10/2017 12:10 AM EST) athologist Signature POC Glucose 173 65 - 199 [place] mg/dL [facility] Comment: Supplemental ranges: <140 mg/dL before meals <180 mg/dL all other times of the day Specimen Anatomical Collection Method Collection Time Receive d Time (Source) Location / / Volume Laterality Blood specimen 07/10/2017 12:10 7 (specimen) AM EST 12:10 AM EST Yuan Webber MD POINT OF CARE TEST ORDERABLE S Performing Organization Address City/State/ZIP Code Phon e Number [address] POCT Glucose (07/09/2017 11:01 PM EST) athologist Signature POC Glucose 140 65 - 199 [place] mg/dL [facility] Comment: Supplemental ranges: <140 mg/dL before meals <180 mg/dL all other times of the day Specimen Anatomical Collection Method Collection Time Receive d Time (Source) Location / / Volume Laterality Blood specimen 07/09/2017 11:01 7 (specimen) PM EST 11:01 PM EST Yuan Webber MD POINT OF CARE TEST ORDERABLE S Performing Organization Address City/State/[place] [address] POCT Glucose (07/09/2017 10:05 PM EST) athologist Signature POC Glucose 144 65 - 199 [place] ZHA[place] mg/dL [facility] Comment: Supplemental ranges: <140 mg/dL before meals <180 mg/dL all other times of the day Specimen Anatomical Collection Method Collection Time Receive d Time (Source) Location / / Volume Laterality Blood specimen 07/09/2017 10:05 7 (specimen) PM EST 10:05 PM EST Yuan Webber MD POINT OF CARE TEST ORDERABLE S Performing Organization Address City/State/ZIP Code Phon e Number [address] POCT Glucose (07/09/2017 9:31 PM EST) athologist Signature POC Glucose 121 65 - 199 [place] mg/dL [facility] Comment: Supplemental ranges: <140 mg/dL before meals <180 mg/dL all other times of the day Specimen Anatomical Collection Method Collection Time Receive d Time (Source) Location / / Volume Laterality Blood specimen 07/09/2017 9:31 PM 017 9:31 (specimen) EST PM EST Yuan Webber MD POINT OF CARE TEST ORDERABLE S Performing Organization Address City/State/ZIP Code Phon e Number [address] POCT Glucose (07/09/2017 9:03 PM EST) athologist Signature POC Glucose 98 65 - 199 [place] mg/dL [facility] Comment: Supplemental ranges: <140 mg/dL before meals <180 mg/dL all other times of the day Specimen Anatomical Collection Method Collection Time Receive d Time (Source) Location / / Volume Laterality Blood specimen 07/09/2017 9:03 PM 017 9:03 (specimen) EST PM EST Yuan Webber MD POINT OF CARE TEST ORDERABLE S Performing Organization Address City/State/[place] [address] POCT Glucose (07/09/2017 8:09 PM EST) athologist Signature POC Glucose 117 65 - 199 [place] RY[place] mg/dL [facility] Comment: Supplemental ranges: <140 mg/dL before meals <180 mg/dL all other times of the day Specimen Anatomical Collection Method Collection Time Receive d Time (Source) Location / / Volume Laterality Blood specimen 07/09/2017 8:09 PM 017 8:09 (specimen) EST PM EST Yuan eWbber MD POINT OF CARE TEST ORDERABLE S Performing Organization Address City/State/[place] [address] POCT Glucose (07/09/2017 5:40 PM EST) athologist Signature POC Glucose 155 65 - 199 [place] RY[place] mg/dL [facility] Comment: Supplemental ranges: <140 mg/dL before meals <180 mg/dL all other times of the day Specimen Anatomical Collection Method Collection Time Receive d Time (Source) Location / / Volume Laterality Blood specimen 07/09/2017 5:40 PM 017 5:40 (specimen) EST PM EST Yuan Webber MD POINT OF CARE TEST ORDERABLE S Performing Organization Address City/State/[place] [address] POCT Glucose (07/09/2017 4:24 PM EST) athologist Signature POC Glucose 164 65 - 199 [place] RY[place] mg/dL [facility] Comment: Supplemental ranges: <140 mg/dL before meals <180 mg/dL all other times of the day Specimen Anatomical Collection Method Collection Time Receive d Time (Source) Location / / Volume Laterality Blood specimen 07/09/2017 4:24 PM 017 4:24 (specimen) EST PM EST Yuan Webber MD POINT OF CARE TEST ORDERABLE S Performing Organization Address City/State/[place] [address] POCT Glucose (07/09/2017 3:19 PM EST) athologist Signature POC Glucose 166 65 - 199 [place] RY[place] mg/dL [facility] Comment: Supplemental ranges: <140 mg/dL before meals <180 mg/dL all other times of the day Specimen Anatomical Collection Method Collection Time Receive d Time (Source) Location / / Volume Laterality Blood specimen 07/09/2017 3:19 PM 017 3:19 (specimen) EST PM EST Yuan Webber MD POINT OF CARE TEST ORDERABLE S Performing Organization Address City/State/[place] [address] POCT Glucose (07/09/2017 2:26 PM EST) athologist Signature POC Glucose 179 65 - 199 [place]HA[place] mg/dL [facility] Comment: Supplemental ranges: <140 mg/dL before meals <180 mg/dL all other times of the day Specimen Anatomical Collection Method Collection Time Receive d Time (Source) Location / / Volume Laterality Blood specimen 07/09/2017 2:26 PM 017 2:26 (specimen) EST PM EST Yuan Webber MD POINT OF CARE TEST ORDERABLE S Performing Organization Address City/State/[place] [address] (ABNORMAL) POCT Glucose (07/09/2017 1:29 PM EST) athologist Signature POC Glucose 210 (H) 65 - 199 [place] mg/dL [facility] Comment: Supplemental ranges: <140 mg/dL before meals <180 mg/dL all other times of the day Specimen Anatomical Collection Method Collection Time Receive d Time (Source) Location / / Volume Laterality Blood specimen 07/09/2017 1:29 PM 017 1:29 (specimen) EST PM EST Yuan Webber MD POINT OF CARE TEST ORDERABLE S Performing Organization Address City/State/ZIP Code Phon e Number [address] POCT Glucose (07/09/2017 12:20 PM EST) P athologist Signature POC Glucose 172 65 - 199 [place] R[place] mg/dL [facility] Comment: Supplemental ranges: <140 mg/dL before meals <180 mg/dL all other times of the day Specimen Anatomical Collection Method Collection Time Receive d Time (Source) Location / / Volume Laterality Blood specimen 07/09/2017 12:20 7 (specimen) PM EST 12:20 PM EST Yuan Webber MD POINT OF CARE TEST ORDERABLE S Performing Organization Address City/State/ZIP Code Phon e Number [address] POCT Glucose (07/09/2017 11:24 AM EST) P athologist Signature POC Glucose 156 65 - 199 [facility] Comment: Supplemental ranges: <140 mg/dL before meals <180 mg/dL all other times of the day Specimen Anatomical Collection Method Collection Time Receive d Time (Source) Location / / Volume Laterality Blood specimen 07/09/2017 11:24 7 (specimen) AM EST 11:24 AM EST Yuan Webber MD POINT OF CARE TEST ORDERABLE S Performing Organization Address City/State/[place] [address] POCT Glucose (07/09/2017 11:11 AM EST) P athologist Signature POC Glucose 172 65 - 199 [facility] Comment: Supplemental ranges: <140 mg/dL before meals <180 mg/dL all other times of the day Specimen Anatomical Collection Method Collection Time Receive d Time (Source) Location / / Volume Laterality Blood specimen 07/09/2017 11:11 7 (specimen) AM EST 11:11 AM EST Yuan Webber MD POINT OF CARE TEST ORDERABLE S Performing Organization Address City/State/ZIP Code Phon e Number [address] POCT Glucose (07/09/2017 10:08 AM EST) P athologist Signature POC Glucose 176 65 - 199 [facility] Comment: Supplemental ranges: <140 mg/dL before meals <180 mg/dL all other times of the day Specimen Anatomical Collection Method Collection Time Receive d Time (Source) Location / / Volume Laterality Blood specimen 07/09/2017 10:08 7 (specimen) AM EST 10:08 AM EST Yuan Webber MD POINT OF CARE TEST ORDERABLE S Performing Organization Address City/[facility]/ZIP Code Phon e Number [address] POCT Glucose (07/09/2017 8:02 AM EST) P athologist Signature POC Glucose 178 65 - 199 [facility]/dL [facility] Comment: Supplemental ranges: <140 mg/dL before meals <180 mg/dL all other times of the day Specimen Anatomical Collection Method Collection Time Receive d Time (Source) Location / / Volume Laterality Blood specimen 07/09/2017 8:02 AM 017 8:02 (specimen) EST AM EST Yuan Webber MD POINT OF CARE TEST ORDERABLE S Performing Organization Address City/State/[place] [address] (ABNORMAL) BLOOD GAS 2 ARTERIAL (07/09/2017 5:37 AM EST) Analysis Performed At Patho logist Time Signature pH Art 7.36 7.35 - [facility] 7.45 [facility] pCO2 Art 38 35 - 45 [facility] LABORATORY pO2 Art 79 (L) 85 - 104 [facility] LABORATORY HCO3 Art 20.9 20.0 - [facility] 26.0 [facility] mmol/L HOSPITAL LABORATORY BE Art -4.6 (L) -3.0 - 3.0 [facility] mmol/L [facility] Hgb Blood Gas 10.5 (L) 13.7 - [facility] 16.5 gm/dL [facility] O2HB Art 93.8 (L) 94.0 - [facility] 97.0 % [facility] COHB Art 0.3 % [facility] [...] Blood 113 (H) 98 - 107 mmol/L [facility] LABORATORY Gluc Whole Bld 175 65 - 199 mg/dL [facility] LABORATORY Comment: Diabetes: >=200 mg/dL plus symp toms. Lactate WB 1.0 0.5 - 2.2 mmol/L [facility] LABORATORY FIO2 Art 40 % [facility] PF Ratio Art 198 [facility] Specimen Anatomical Collection Method Collection Time Receive d Time (Source) Location / / Volume Laterality Blood specimen 07/09/2017 5:37 AM 017 5:37 (specimen) EST AM EST Yuan Webber MD CHEMISTRY ORDERABLES Performing Organization Address City/State/ZIP [place] [address] POCT Glucose (07/09/2017 3:27 AM EST) athologist Signature POC Glucose 192 65 - 199 [facility] Comment: Supplemental ranges: <140 mg/dL before meals <180 mg/dL all other times of the day Specimen Anatomical Collection Method Collection Time Receive d Time (Source) Location / / Volume Laterality Blood specimen 07/09/2017 3:27 AM 017 3:27 (specimen) EST AM EST Yuan Webber MD POINT OF CARE TEST ORDERABLE S Performing Organization Address City/State/ZIP [place] [address] (ABNORMAL) Basic Metabolic Panel (non-fasting) (07/09/2017 2:30 AM EST) athologist Signature Glucose Lvl 179 65 - 199 [facility] mg/dL [facility] Comment: Diabetes: >=200 mg/dL plus symp toms BUN 17 10 - 20 mg/dL [facility] Creatinine 1.34 0.80 - 1.50 mg/dL [place] [facility]ORY Sodium 144 135 - 145 mmol/L [facility] Potassium Not Perf 3.5 - 5.0 mmol/L [facility] Comment: Duplicate order Please note: [...] Calcium 7.1 (L) 8.5 - 10.5 mg/dL [facility] Comment: result rechecked-[id number] Estimated GFR 53 (L) >=60 [facility] Comment: The reported eGFR should be multiplied b y 1.2 for patients. The MDRD is not an appropriate measure o f renal function for patients with body mass extremes or in patients with acute kidney failure. http://[employer]Easy[employer]/DHnkdep http://[employer]/DHMCnkf Specimen Anatomical Collection Method Collection Time Receive d Time (Source) Location / / Volume Laterality Blood specimen Venous Draw / 07/09/2017 2:30 AM 2016 2:42 (specimen) Unknown EST AM EST Resulting Agency Comment Spec In Lab Yuan Webber MD CHEMISTRY ORDERABLES Performing Organization Address City/[facility] [place] [address] (ABNORMAL) Potassium (07/09/2017 2:30 AM EST) P athologist Signature Potassium 5.1 (H) 3.5 - 5.0 [facility] mmol/L [facility] Comment: Please note: ??Patients [...] Webber MD CHEMISTRY ORDERABLES Performing Organization Address [place]/[facility] [place] [address] (ABNORMAL) Hemogram (07/09/2017 2:30 AM EST) Analysis Performed At Patho logist Time Signature WBC 12.5 (H) 4.0 - 9.5 [facility] RYAN x10(3)/[facility] LABORATORY RBC 3.38 (L) 4.58 - [place] RYAN 5.54 [facility] x10(6)/[facility] LABORATORY Hemoglobin 10.1 (L) 13.7 - [place]ALINA RYAN 16.5 gm/dL [facility] Hematocrit 30.3 (L) 40.5 - [place] RYAN 48.5 % [facility] MCV 89.6 82.9 - KATALINA DAVIS 93.1 [facility] LABORATORY MCH 29.9 27.5 - KATALINA DAVIS 32.1 pg [facility] MCHC 33.3 32.0 - KATALINA DAVIS 35.7 gm/dL [facility] Platelets 127 (L) 145 - 357 KATALINA CAMERON x10(3)/[facility] LABORATORY RDWSD 49.3 (H) 36.0 - KATALINA DAVIS 45.0 [facility] LABORATORY RDWCV 15.2 (H) 11.4 - KATALINA DAVIS 13.8 % [facility] MPV 9.9 7.6 - 12.9 KATALINA DAVIS [facility] LABORATORY nRBC % Auto 0.0 % [facility] nRBC Abs Auto 0.000 0.000 - KATALINA DAVIS 0.000 [facility] x10(3)/[facility] LABORATORY Specimen Anatomical Collection Method Collection Time Receive d Time (Source) Location / / Volume Laterality Blood specimen 07/09/2017 2:30 AM 017 2:41 (specimen) EST AM EST Resulting Agency Comment Spec In Lab Yuan Webber MD HEMATOLOGY ORDERABLES Performing Organization Address City/[facility]/ZIP Code Phon e Number [address] POCT Glucose (07/09/2017 2:10 AM EST) athologist Signature POC Glucose 169 65 - 199 [facility] mg/dL [facility] Comment: Supplemental ranges: <140 mg/dL before meals <180 mg/dL all other times of the day Specimen Anatomical Collection Method Collection Time Receive d Time (Source) Location / / Volume Laterality Blood specimen 07/09/2017 2:10 AM 017 2:10 (specimen) EST AM EST Yuan Webber MD POINT OF CARE TEST ORDERABLE S Performing Organization Address City/[facility] Code Phon e Number [address] POCT Glucose (07/09/2017 1:01 AM EST) athologist Signature POC Glucose 173 65 - 199 [facility] mg/dL [facility] Comment: Supplemental ranges: <140 mg/dL before meals <180 mg/dL all other times of the day Specimen Anatomical Collection Method Collection Time Receive d Time (Source) Location / / Volume Laterality Blood specimen 07/09/2017 1:01 AM 017 1:01 (specimen) EST AM EST Yuan Webber MD POINT OF CARE TEST ORDERABLE S Performing Organization Address City/[facility]/[place] [address] Blood culture (07/09/2017 12:40 AM EST) [facility] gist Method Time Signature Blood Culture No growth KATALINA DAVIS at 5 days. [facility] Specimen Anatomical Collection Method Collection Time Receive d Time (Source) Location / / Volume Laterality Blood specimen STRUCTURE OF RIGHT 07/09/2017 12:40 3:58 (specimen) UPPER LIMB / AM EST AM EST Unknown Resulting Agency Comment Spec In Lab Yuan Webber MD MICROBIOLOGY - BLOOD ORDERAB LES Performing Organization Address City/[facility]/[place] [address] Blood culture (07/09/2017 12:30 AM EST) [facility] gist Method Time Signature Blood Culture No growth KATALINA DAVIS at 5 days. [facility] Specimen Anatomical Collection Method Collection Time Receive d Time (Source) Location / / Volume Laterality Blood specimen STRUCTURE OF LEFT 07/09/2017 12:30 1211/2016 3:59 (specimen) UPPER LIMB / AM EST AM EST Unknown Resulting Agency Comment Spec In Lab Yuan Webber MD MICROBIOLOGY - BLOOD ORDERAB LES Performing Organization Address City/[facility]/[place] [address] (ABNORMAL) Urinalysis Microscopic Exam (07/09/2017 12:05 AM EST) Analysis Performed At Patho logist Time Signature RBC UA 32 (H) 0 - 3 /HPF [facility] WBC UA 5 (H) 0 - 3 /HPF [facility] Squam Epith UA <1 <=4 /HPF [facility] Hyaline Cast 17 (H) 0 - 2 /LPF [facility] Gran Cast UA 1 (H) <=0 /LPF [facility] Uric Ac Bianca Rare (A) None /HPF [facility] Specimen (Source) Anatomical Collection Method Collection Time Re ceived Time Location / / Volume Laterality Urine specimen 07/09/2017 12: 7 obtained via AM EST 12:39 AM EST indwelling urinary catheter (specimen) Resulting Agency Comment Spec In Lab Yuan Webber MD URINE ORDERABLES Performing Organization Address City/State/ZIP [place] [address] (ABNORMAL) Urinalysis with reflex Culture (07/09/2017 12:05 AM EST) [facility] gist Method Time Signature Glucose UA Negative Negative [facility] mg/dL [facility] Protein UA 30 (A) Negative [facility] mg/dL [facility] Bilirubin UA Negative Negative [facility] mg/dL [facility] Comment: Clinical correlation required for positi ve Urine Bilirubin results as false positive may occur with some drugs and d rug related products. If a false positive is suspected a serum total bili yeager should be considered if clinically indicated. Urobilinogen UA Normal Normal mg/dL [facility] pH UA 5.0 5.0 - 8.0 [facility] Blood UA Moderate (A) Negative mg/dL [facility] Ketones UA Negative Negative mg/dL [facility] Nitrite UA Negative Negative [facility] Leukocytes UA Negative Negative [facility] LABORATORY Appearance UA Hazy (A) Clear [facility] Spec [place] UA 1.025 1.002 - 1.030 [facility] Color UA Yellow Yellow [facility] Culture Reflexed No [facility] Specimen (Source) Anatomical Collection Method Collection Time Re ceived Time Location / / Volume Laterality Urine specimen 07/09/2017 12:05 12/15/201 7 obtained via AM EST 12:39 AM EST indwelling urinary catheter (specimen) Resulting Agency Comment Spec In Lab Yuan Webber MD URINE ORDERABLES Performing Organization Address City/[facility]/ZIP Code Phon e Number [address] POCT Glucose (07/08/2017 11:01 PM EST) P athologist Signature POC Glucose 191 65 - 199 [facility] mg/dL [facility] Comment: Supplemental ranges: <140 mg/dL before meals <180 mg/dL all other times of the day Specimen Anatomical Collection Method Collection Time Receive d Time (Source) Location / / Volume Laterality Blood specimen 07/08/2017 11:01 7 (specimen) PM EST 11:01 PM EST Yuan Webber MD POINT OF CARE TEST ORDERABLE S Performing Organization Address [place]/[facility]/ZIP Code Phon e Number [address] POCT Glucose (07/08/2017 10:04 PM EST) P athologist Signature POC Glucose 198 65 - 199 [facility] mg/dL [facility] Comment: Supplemental ranges: <140 mg/dL before meals <180 mg/dL all other times of the day Specimen Anatomical Collection Method Collection Time Receive d Time (Source) Location / / Volume Laterality Blood specimen 07/08/2017 10:04 7 (specimen) PM EST 10:04 PM EST Yuan Webber MD POINT OF CARE TEST ORDERABLE S Performing Organization Address City/[facility]/ZIP Code Phon e Number [address] Prepare Albumin 5% in [...] Organization Address City/State/[place] [address] POCT Glucose (07/08/2017 8:28 PM EST) athologist Signature POC Glucose 195 65 - 199 [place] ZHAORYAN mg/dL [facility] Comment: Supplemental ranges: <140 mg/dL before meals <180 mg/dL all other times of the day Specimen Anatomical Collection Method Collection Time Receive d Time (Source) Location / / Volume Laterality Blood specimen 07/08/2017 8:28 PM 017 8:28 (specimen) EST PM EST Yuan Webber MD POINT OF CARE TEST ORDERABLE S Performing Organization Address City/[facility]/[place] [address] (ABNORMAL) POCT Glucose (07/08/2017 7:13 PM EST) athologist Signature POC Glucose 220 (H) 65 - 199 [place] ZHAORYAN mg/dL [facility] Comment: Supplemental ranges: <140 mg/dL before meals <180 mg/dL all other times of the day Specimen Anatomical Collection Method Collection Time Receive d Time (Source) Location / / Volume Laterality Blood specimen 07/08/2017 7:13 PM 017 7:13 (specimen) EST PM EST Yuan Webber MD POINT OF CARE TEST ORDERABLE S Performing Organization Address City/[facility]/[place] [address] POCT Glucose (07/08/2017 5:04 PM EST) athologist Signature POC Glucose 147 65 - 199 [place] ZHAORYAN mg/dL [facility] Comment: Supplemental ranges: <140 mg/dL before meals <180 mg/dL all other times of the day Specimen Anatomical Collection Method Collection Time Receive d Time (Source) Location / / Volume Laterality Blood specimen 07/08/2017 5:04 PM 017 5:04 (specimen) EST PM EST Yuan Webber MD POINT OF CARE TEST ORDERABLE S Performing Organization Address City/State/ZIP [place] [address] (ABNORMAL) BLOOD GAS 2 ARTERIAL (07/08/2017 4:13 PM EST) Analysis Performed At Patho logist Time Signature pH Art 7.38 7.35 - [facility] 7.45 [facility] pCO2 Art 36 35 - 45 [facility] mmHg [facility] pO2 Art 91 85 - 104 [facility] mmHg [facility] HCO3 Art 20.9 20.0 - [facility] 26.0 [facility] mmol/L [facility] BE Art -4.2 (L) -3.0 - 3.0 [facility] mmol/L [facility] Hgb Blood Gas 11.7 (L) 13.7 - [facility] 16.5 gm/dL [facility] O2HB Art 95.1 94.0 - [facility] 97.0 % [facility] COHB Art 0.6 % [facility] [...] Blood 110 (H) 98 - 107 mmol/L [facility] Gluc Whole Bld 155 65 - 199 mg/dL [facility] Comment: Diabetes: >=200 mg/dL plus symp toms. Lactate WB 1.4 0.5 - 2.2 mmol/L [facility] FIO2 Art 40 % [facility] PF Ratio Art 228 [facility] Specimen Anatomical Collection Method Collection Time Receive d Time (Source) Location / / Volume Laterality Blood specimen 07/08/2017 4:13 PM 017 4:13 (specimen) EST PM EST Yuan Webber MD CHEMISTRY ORDERABLES Performing Organization Address City/[facility]/ZIP Code Phon e Number [address] POCT Glucose (07/08/2017 4:01 PM EST) athologist Signature POC Glucose 148 65 - 199 [facility] Comment: Supplemental ranges: <140 mg/dL before meals <180 mg/dL all other times of the day Specimen Anatomical Collection Method Collection Time Receive d Time (Source) Location / / Volume Laterality Blood specimen 07/08/2017 4:01 PM 017 4:01 (specimen) EST PM EST Yuan Webber MD POINT OF CARE TEST ORDERABLE S Performing Organization Address City/State/ZIP Code Phon e Number [address] POCT Glucose (07/08/2017 3:21 PM EST) athologist Signature POC Glucose 118 65 - 199 [facility] mg/dL [facility] Comment: Supplemental ranges: <140 mg/dL before meals <180 mg/dL all other times of the day Specimen Anatomical Collection Method Collection Time Receive d Time (Source) Location / / Volume Laterality Blood specimen 07/08/2017 3:21 PM 017 3:21 (specimen) EST PM EST Yuan Webber MD POINT OF CARE TEST ORDERABLE S Performing Organization Address City/State/ZIP Code Phon e Number [address] POCT Glucose (07/08/2017 2:01 PM EST) athologist Signature POC Glucose 129 65 - 199 [facility] mg/dL [facility] Comment: Supplemental ranges: <140 mg/dL before meals <180 mg/dL all other times of the day Specimen Anatomical Collection Method Collection Time Receive d Time (Source) Location / / Volume Laterality Blood specimen 07/08/2017 2:01 PM 017 2:01 (specimen) EST PM EST Yuan Webber MD POINT OF CARE TEST ORDERABLE S Performing Organization Address City/State/[place] [address] POCT Glucose (07/08/2017 11:53 AM EST) athologist Signature POC Glucose 156 65 - 199 K[place]ALINA RYAN mg/dL [facility] Comment: Supplemental ranges: <140 mg/dL before meals <180 mg/dL all other times of the day Specimen Anatomical Collection Method Collection Time Receive d Time (Source) Location / / Volume Laterality Blood specimen 07/08/2017 11:53 7 (specimen) AM EST 11:53 AM EST Yuan Webber MD POINT OF CARE TEST ORDERABLE S Performing Organization Address City/State/[place] [address] POCT Glucose (07/08/2017 11:04 AM EST) athologist Signature POC Glucose 181 65 - 199 K[place]ALINA RYAN mg/dL [facility] Comment: Supplemental ranges: <140 mg/dL before meals <180 mg/dL all other times of the day Specimen Anatomical Collection Method Collection Time Receive d Time (Source) Location / / Volume Laterality Blood specimen 07/08/2017 11:04 7 (specimen) AM EST 11:04 AM EST Yuan Webber MD POINT OF CARE TEST ORDERABLE S Performing Organization Address City/State/[place] [address] (ABNORMAL) POCT Glucose (07/08/2017 9:24 AM EST) athologist Signature POC Glucose 203 (H) 65 - 199 KATALINA RYAN mg/dL [facility] Comment: Supplemental ranges: <140 mg/dL before meals <180 mg/dL all other times of the day Specimen Anatomical Collection Method Collection Time Receive d Time (Source) Location / / Volume Laterality Blood specimen 07/08/2017 9:24 AM 017 9:24 (specimen) EST AM EST Yuan Webber MD POINT OF CARE TEST ORDERABLE S Performing Organization Address City/[facility]/[place] [address] APTT (07/08/2017 8:40 AM EST) P athologist Signature PTT 33 25 - 35 sec [facility] Comment: The recommended therapeutic range for fu ll dose, unfractionated heparin at [facility] is 80 ? 114 seconds. The use [...] Organization Address City/State/[place] [address] (ABNORMAL) Prothrombin Time (07/08/2017 8:40 AM EST) P athologist Signature PT 15.6 (H) 11.8 - 14.0 [facility] [...] Organization Address City/State/[place] [address] (ABNORMAL) POCT Glucose (07/08/2017 7:38 AM EST) athologist Signature POC Glucose 232 (H) 65 - 199 [facility] mg/dL [facility] Comment: Supplemental ranges: <140 mg/dL before meals <180 mg/dL all other times of the day Specimen Anatomical Collection Method Collection Time Receive d Time (Source) Location / / Volume Laterality Blood specimen 07/08/2017 7:38 AM 017 7:38 (specimen) EST AM EST Yuan Webber MD POINT OF CARE TEST ORDERABLE S Performing Organization Address City/[facility]/[place] [address] (ABNORMAL) POCT Glucose (07/08/2017 7:07 AM EST) athologist Signature POC Glucose 234 (H) 65 - 199 [facility] mg/dL [facility] Comment: Supplemental ranges: <140 mg/dL before meals <180 mg/dL all other times of the day Specimen Anatomical Collection Method Collection Time Receive d Time (Source) Location / / Volume Laterality Blood specimen 07/08/2017 7:07 AM 017 7:07 (specimen) EST AM EST Yuan Webber MD POINT OF CARE TEST ORDERABLE S Performing Organization Address City/State/[place] [address] (ABNORMAL) POCT Glucose (07/08/2017 6:04 AM EST) athologist Signature POC Glucose 225 (H) 65 - 199 [facility] mg/dL [facility] Comment: Supplemental ranges: <140 mg/dL before meals <180 mg/dL all other times of the day Specimen Anatomical Collection Method Collection Time Receive d Time (Source) Location / / Volume Laterality Blood specimen 07/08/2017 6:04 AM 017 6:04 (specimen) EST AM EST Yuan Webber MD POINT OF CARE TEST ORDERABLE S Performing Organization Address City/State/[place] [address] (ABNORMAL) POCT Glucose (07/08/2017 5:31 AM EST) P athologist Signature POC Glucose 216 (H) 65 - 199 [facility] mg/dL [facility] Comment: Supplemental ranges: <140 mg/dL before meals <180 mg/dL all other times of the day Specimen Anatomical Collection Method Collection Time Receive d Time (Source) Location / / Volume Laterality Blood specimen 07/08/2017 5:31 AM 017 5:31 (specimen) EST AM EST Yuan Webber MD POINT OF CARE TEST ORDERABLE S Performing Organization Address City/State/[place] [address] (ABNORMAL) POCT Glucose (07/08/2017 4:52 AM EST) P athologist Signature POC Glucose 257 (H) 65 - 199 [facility] mg/dL [facility] Comment: Supplemental ranges: <140 mg/dL before meals <180 mg/dL all other times of the day Specimen Anatomical Collection Method Collection Time Receive d Time (Source) Location / / Volume Laterality Blood specimen 07/08/2017 4:52 AM 017 4:52 (specimen) EST AM EST Daphne Shahid MD POINT OF CARE TEST ORDERABLE S Performing Organization Address City/State/[place] [address] (ABNORMAL) BLOOD GAS 2 ARTERIAL (07/08/2017 4:04 AM EST) Analysis Performed At Patho logist Time Signature pH Art 7.30 (L) 7.35 - [facility] 7.45 [facility] pCO2 Art 41 35 - 45 [facility] LABORATORY pO2 Art 83 (L) 85 - 104 [facility] LABORATORY HCO3 Art 19.6 (L) 20.0 - [facility] 26.0 [facility] mmol/L [facility] LABORATORY BE Art -6.8 (L) -3.0 - 3.0 [facility] mmol/L [facility] Hgb Blood Gas 12.2 (L) 13.7 - [facility] 16.5 gm/dL [facility] O2HB Art 93.5 (L) 94.0 - [facility] 97.0 % [facility] COHB Art 0.4 % [facility] [...] Whole Blood 107 98 - 107 mmol/L [facility] Gluc Whole Bld 274 (H) 65 - 199 mg/dL [facility] Comment: Diabetes: >=200 mg/dL plus symp toms. Lactate WB 4.4 (Critical) 0.5 - 2.2 mmol/L [facility] LABOR[facility]ORY Comment: Noted by wind instrument repairer. FIO2 Art 40 % [facility] PF Ratio Art 208 [facility] Specimen Anatomical Collection Method Collection Time Receive d Time (Source) Location / / Volume Laterality Blood specimen 07/08/2017 4:04 AM 017 4:04 (specimen) EST AM EST Daphne Shahid MD CHEMISTRY ORDERABLES Performing Organization Address City/State/ZIP [place] [address] Scan, Peripheral Blood (07/08/2017 [...] Organization Address City/State/ZIP [place] [address] (ABNORMAL) Differential, Automated (07/08/2017 4:00 AM EST) Patholo gist Method Time Signature Neutrophils % 85.4 % [facility] Neutr Abs (ANC) 16.07 (H) 1.70 - [facility] 6.10 [facility] x10(3)/[facility] LABORATORY Lymphocytes % 3.5 % [facility]OR[facility]ORY Lymphocytes Abs 0.6 (L) 0.9 - 3.2 [facility] x10(3)/[facility] LABORATORY Monocytes % 10.4 % [facility]ORY Monocyte Abs 2.0 (H) 0.3 - 0.9 [facility] x10(3)/[facility] LABORATORY Eosinophils % 0.0 % [facility] Eosinophils Abs 0.0 0.0 - 0.4 [facility] x10(3)/[facility] LABORATORY Basophils % 0.1 % [facility] Basophils Abs 0.0 0.0 - 0.1 [facility] x10(3)/[facility] LABORATORY Immature Gran % 0.60 [...] Gran Abs 0.12 (H) 0.00 - 0.04 x10(3)/[facility] LABORATORY Specimen Anatomical Collection Method Collection Time Receive d Time (Source) Location / / Volume Laterality Blood specimen 07/08/2017 4:00 AM 017 4:09 (specimen) EST AM EST Resulting Agency Comment Spec In Lab Yuan Webber MD HEMATOLOGY ORDERABLES Performing Organization Address City/State/ZIP [place] [address] (ABNORMAL) Hemogram (07/08/2017 4:00 AM EST) Analysis Performed At Patho logist Time Signature WBC 18.8 (H) 4.0 - 9.5 [facility] x[facility](3)/[facility] LABORATORY RBC 4.00 (L) 4.58 - [facility] 5.54 [facility] x10(6)/[facility] LABORATORY Hemoglobin 11.9 (L) 13.7 - [facility] [facility] 16.5 gm/dL [facility] Hematocrit 35.9 (L) 40.5 - [facility] 48.5 % [facility] MCV 89.8 82.9 - [facility] 93.1 [facility] LABORATORY MCH 29.8 27.5 - [facility] RYAN 32.1 pg [facility] MCHC 33.1 32.0 - [facility] RYAN 35.7 gm/dL [facility] Platelets 232 145 - 357 [facility] x10(3)/[facility] LABORATORY RDWSD 47.6 (H) 36.0 - [facility] RYAN 45.0 [facility] LABORATORY RDWCV 14.5 (H) 11.4 - [facility] R[facility]AN 13.8 % [facility] MPV 9.5 7.6 - 12.9 [facility] nRBC % Auto 0.0 % [facility] nRBC Abs Auto 0.000 0.000 - [place] RYAN 0.000 [facility] x10(3)/[facility] LABORATORY Specimen Anatomical Collection Method Collection Time Receive d Time (Source) Location / / Volume Laterality Blood specimen 07/08/2017 4:00 AM 017 4:09 (specimen) EST AM EST Resulting Agency Comment Spec In Lab Yuan Webber MD HEMATOLOGY ORDERABLES Performing Organization Address City/[facility]/[place] [address] (ABNORMAL) Electrolytes panel (07/08/2017 4:00 AM EST) athologist [facility] Sodium 139 135 - 145 [facility] mmol/L [facility] Potassium 4.7 3.5 - 5.0 [facility] mmol/L [facility] Comment: result rechecked-JLK Please [...] Webber MD CHEMISTRY ORDERABLES Performing Organization Address City/[facility]/[place] [address] (ABNORMAL) Cardiac Enzymes (LEB/CGP) (07/08/2017 4:00 AM EST) athologist [facility] Troponin-T 1.88 (H) 0.00 - [facility] 0.00 ng/mL [facility] Comment: The 99th percentile for Troponin T is le ss than 0.01 ng/mL, any detectable cTnT concentration using this assay should be considered elevated. According to the third universal definit ion of myocardial infarction the following criteria with a clinical prese ntation consistent with acute myocardial ischemia meets the diagnosis for a myocardial infarction ([place]). Detection of a rise and/or fall of [...] additional sample may be indicated. Reference: Third Arbon Definition of Myocardial Infarction. Journal of the [employer] 2012;60:1581-98 CK, Total 413 [...] Organization Address City/State/ZIP [place] [address] (ABNORMAL) Glucose, fasting (07/08/2017 4:00 AM EST) athologist Signature Glucose 287 (H) 65 - 99 [facility] Fasting mg/dL [facility] Comment: ?Fasting* Glucose Interpretive [...] Organization Address City/State/[place] [address] (ABNORMAL) Creatinine (07/08/2017 4:00 AM EST) Analysis Performed At Patho logist Time Signature Creatinine 1.55 (H) 0.80 - [facility] 1.50 mg/dL [facility] Estimated GFR 44 (L) >=60 [facility] Comment: The reported eGFR should be multiplied b y 1.2 for patients. The MDRD is not an appropriate measure o f renal function for patients with body mass extremes or in patients with acute kidney failure. http://[employer]/DHnkdep http://[employer]/DHMCnkf Specimen Anatomical Collection Method Collection Time Receive d Time (Source) Location / / Volume Laterality Blood specimen 07/08/2017 4:00 AM 017 4:09 (specimen) EST AM EST Resulting Agency Comment Spec In Lab Yuan Webber MD CHEMISTRY ORDERABLES Performing Organization Address City/State/[place] [address] BUN (07/08/2017 4:00 AM EST) P athologist Signature BUN 16 10 - 20 [facility] mg/dL [facility] Specimen Anatomical Collection Method Collection Time Receive d Time (Source) Location / / Volume Laterality Blood specimen 07/08/2017 4:00 AM 017 4:09 (specimen) EST AM EST Resulting Agency Comment Spec In Lab Yuan Webber MD CHEMISTRY ORDERABLES Performing Organization Address City/[facility]/[place] [address] (ABNORMAL) POCT Glucose (07/08/2017 3:00 AM EST) P athologist Signature POC Glucose 273 (H) 65 - 199 [facility] mg/dL [facility] Comment: Supplemental ranges: <140 mg/dL before meals <180 mg/dL all other times of the day Specimen Anatomical Collection Method Collection Time Receive d Time (Source) Location / / Volume Laterality Blood specimen 07/08/2017 3:00 AM 017 3:00 (specimen) EST AM EST Daphne Shahid MD POINT OF CARE TEST ORDERABLE S Performing Organization Address City/State/[place] [address] (ABNORMAL) POCT Glucose (07/08/2017 1:57 AM EST) athologist Signature POC Glucose 288 (H) 65 - 199 [facility] mg/dL [facility] Comment: Supplemental ranges: <140 mg/dL before meals <180 mg/dL all other times of the day Specimen Anatomical Collection Method Collection Time Receive d Time (Source) Location / / Volume Laterality Blood specimen 07/08/2017 1:57 AM 017 1:57 (specimen) EST AM EST Daphne Shahid MD POINT OF CARE TEST ORDERABLE S Performing Organization Address City/State/[place] [address] (ABNORMAL) POCT Glucose (07/08/2017 1:01 AM EST) athologist Signature POC Glucose 315 (H) 65 - 199 [facility] mg/dL [facility] Comment: Supplemental ranges: <140 mg/dL before meals <180 mg/dL all other times of the day Specimen Anatomical Collection Method Collection Time Receive d Time (Source) Location / / Volume Laterality Blood specimen 07/08/2017 1:01 AM 017 1:01 (specimen) EST AM EST Daphne Shahid MD POINT OF CARE TEST ORDERABLE S Performing Organization Address City/State/[place] [address] (ABNORMAL) BLOOD GAS 2 ARTERIAL (07/08/2017 12:09 AM EST) athologist Signature pH Art 7.26 7.35 - [facility] (Critical) 7.45 [facility] Comment: Noted by wind instrument repairer. pCO2 Art 41 35 - 45 mmHg [facility] pO2 Art 96 85 - [address] [facility] HCO3 Art 17.7 (L) 20.0 - 26.0 mmol/L [facility] BE Art -9.4 (L) -3.0 - 3.0 mmol/L [facility] Hgb Blood Gas 12.4 (L) 13.7 - 16.5 gm/dL [facility] O2HB Art 94.7 94.0 - 97.0 % [facility] COHB Art 0.2 % GRACE [...] Blood 109 (H) 98 - 107 mmol/L [facility] Gluc Whole Bld 315 (H) 65 - 199 mg/dL [facility] Comment: Diabetes: >=200 mg/dL plus symp toms. Lactate WB 7.6 (Critical) 0.5 - 2.2 mmol/L [facility] Comment: Noted by wind instrument repairer. FIO2 Art 40 % [facility] PF Ratio Art 240 [facility] Specimen Anatomical Collection Method Collection Time Receive d Time (Source) Location / / Volume Laterality Blood specimen Arterial Draw / 07/08/2017 12:09 2016 5:31 (specimen) Unknown AM EST AM EST Resulting Agency Comment Spec In Lab Samy Maldonado MD CHEMISTRY ORDERABLES Performing Organization Address City/[facility]/[place] [address] (ABNORMAL) POCT Glucose (07/07/2017 10:56 PM EST) athologist Signature POC Glucose 292 (H) 65 - 199 [facility] mg/dL [facility] Comment: Supplemental ranges: <140 mg/dL before meals <180 mg/dL all other times of the day Specimen Anatomical Collection Method Collection Time Receive d Time (Source) Location / / Volume Laterality Blood specimen 07/07/2017 10:56 7 (specimen) PM EST 10:56 PM EST Daphne Shahid MD POINT OF CARE TEST ORDERABLE S Performing Organization Address City/[facility]/[place] [address] (ABNORMAL) BLOOD GAS 2 ARTERIAL (07/07/2017 10:04 PM EST) athologist Signature pH Art 7.22 7.35 - [facility] (Critical) 7.45 [facility] Comment: Noted by wind instrument repairer. pCO2 Art 42 35 - 45 mmHg [facility] pO2 Art 94 85 - [address] [facility] HCO3 Art 16.9 (L) 20.0 - 26.0 mmol/L [facility] BE Art -10.7 (L) -3.0 - 3.0 mmol/L [facility] Hgb Blood Gas 13.0 (L) 13.7 - 16.5 gm/dL [facility] O2HB Art 93.8 (L) 94.0 - 97.0 % [facility] COHB Art 0.7 % [facility] Comment: Nonsmokers: 0.5-1.5% COHB Smokers: Variable, but usually less than 10% Toxic: 20-30% COHB Lethal: Greater than 60% COHB METHB Art 0.7 <=1.5 % [facility] Na Whole Blood 140 135 - 145 mmol/L [facility] K Whole Blood 3.3 (L) 3.5 - 5.0 mmol/L [facility] [...] Whole Blood 107 98 - 107 mmol/L [facility] Gluc Whole Bld 304 (H) 65 - 199 mg/dL [facility] Comment: Diabetes: >=200 mg/dL plus symp toms. Lactate WB 8.2 (Critical) 0.5 - 2.2 mmol/L [facility] Comment: Noted by wind instrument repairer. FIO2 Art 40 % [facility] PF Ratio Art 235 [facility] Specimen Anatomical Collection Method Collection Time Receive d Time (Source) Location / / Volume Laterality Blood specimen 07/07/2017 10:04 7 (specimen) PM EST 10:04 PM EST Daphne Shahid MD CHEMISTRY ORDERABLES Performing Organization Address City/State/ZIP [place] [address] (ABNORMAL) Hemoglobin (07/07/2017 10:00 PM EST) P athologist Signature Hemoglobin 12.8 (L) 13.7 - [facility] 16.5 gm/dL [facility] Specimen Anatomical Collection Method Collection Time Receive d Time (Source) Location / / Volume Laterality Blood specimen 07/07/2017 10:00 7 (specimen) PM EST 10:13 PM EST Resulting Agency Comment Spec In Lab Yuan Webber MD HEMATOLOGY ORDERABLES Performing Organization Address City/[facility]/[place] [address] (ABNORMAL) Potassium (07/07/2017 10:00 PM EST) athologist Signature Potassium 3.4 (L) 3.5 - 5.0 [facility] mmol/L [facility] Comment: Please note: ??Patients [...] Webber MD CHEMISTRY ORDERABLES Performing Organization Address City/[facility]/[place] [address] (ABNORMAL) POCT Glucose (07/07/2017 8:49 PM EST) athologist Signature POC Glucose 241 (H) 65 - 199 [facility] mg/dL [facility] Comment: Supplemental ranges: <140 mg/dL before meals <180 mg/dL all other times of the day Specimen Anatomical Collection Method Collection Time Receive d Time (Source) Location / / Volume Laterality Blood specimen 07/07/2017 8:49 PM 017 8:49 (specimen) EST PM EST Daphne Shahid MD POINT OF CARE TEST ORDERABLE S Performing Organization Address City/[facility]/[place] [address] Prepare Albumin 5% in [...] Organization Address City/State/ZIP [place] [address] EKG 12 Lead (07/07/2017 7:17 PM EST) Component Value Ref Range Test Analysis Performed Pathologis t Method Time At Signature Ventricular rate 75 BPM MUSE SYSTEM Atrial Rate 75 BPM MUSE SYSTEM P-R Interval 168 ms MUSE SYSTEM QRS Duration 104 ms MUSE SYSTEM Q-T Interval 462 ms MUSE SYSTEM QTC Calculated 515 ms MUSE SYSTEM (Bezet) Calculated P [place] 52 degrees MUSE SYSTEM Calculated R [place] -40 degrees MUSE SYSTEM Calculated T [place] 39 degrees MUSE SYSTEM INTERPRETATION Normal sinus [...] pH Art 7.21 7.35 - [facility] (Critical) 7.45 [facility] Comment: Noted by wind instrument repairer. pCO2 Art 50 (H) 35 - 45 mmHg [facility] pO2 Art 238 (H) 85 - [address] [facility] HCO3 Art 19.8 (L) 20.0 - 26.0 mmol/L [facility] BE Art -8.1 (L) -3.0 - 3.0 mmol/L [facility] Hgb Blood Gas 12.8 (L) 13.7 - 16.5 gm/dL [facility] O2HB Art 97.5 (H) 94.0 - 97.0 % [facility] COHB Art 0.5 % [facility] Comment: Nonsmokers: 0.5-1.5% COHB Smokers: Variable, but usually less than 10% Toxic: 20-30% COHB Lethal: Greater than 60% COHB METHB Art 0.7 <=1.5 % [facility] Na Whole Blood 140 135 - 145 mmol/L [facility] K Whole Blood 3.0 (Critical) 3.5 - 5.0 mmol/L [facility] Comment: Noted by wind instrument repairer. Please note: Patients with WBC >100,000 may have falsely elevated Potassium levels. Contact the Clinical Chemistry L aboratory if there are any questions. ICa Whole Blood 1.07 (L) 1.15 - 1.33 mmol/L [facility] Comment: Note: ??Total bilirubin higher than 20 m g/dL may lead to falsely low ionized calcium. CL Whole Blood 107 98 - 107 mmol/L [facility] Gluc Whole Bld 270 (H) 65 - 199 mg/dL [facility] Comment: Diabetes: >=200 mg/dL plus symp toms. Lactate WB 4.9 (Critical) 0.5 - 2.2 mmol/L [facility] Comment: Noted by wind instrument repairer. FIO2 Art 100 % [facility] PF Ratio Art 238 [facility] Specimen Anatomical Collection Method Collection Time Receive d Time (Source) Location / / Volume Laterality Blood specimen 07/07/2017 6:57 PM 017 6:57 (specimen) EST PM EST Daphne Shahid MD CHEMISTRY ORDERABLES Performing Organization Address City/State/ZIP [place] [address] (ABNORMAL) BLOOD GAS 2 ARTERIAL (07/07/2017 5:31 PM EST) athologist Signature pH Art 7.29 7.35 - [facility] (Critical) 7.45 [facility] Comment: Noted by wind instrument repairer. pCO2 Art 48 (H) 35 - 45 mmHg [facility] pO2 Art 137 (H) 85 - [address] [facility] HCO3 Art 22.4 20.0 - 26.0 mmol/L [facility] BE Art -4.3 (L) -3.0 - 3.0 mmol/L [facility] Hgb Blood Gas 10.0 (L) 13.7 - 16.5 gm/dL [facility] O2HB Art 97.3 (H) 94.0 - 97.0 % [facility] COHB Art 0.3 % [facility] Comment: Nonsmokers: 0.5-1.5% COHB Smokers: Variable, but usually less than 10% Toxic: 20-30% COHB Lethal: Greater than 60% COHB METHB Art 0.3 <=1.5 % [facility] Na Whole Blood 132 (L) 135 - 145 mmol/L [facility] K Whole Blood 4.0 3.5 - 5.0 mmol/L [facility] Whole Blood 105 98 - 107 mmol/L [facility] Gluc Whole Bld 293 (H) 65 - 199 mg/dL [facility] Comment: Diabetes: >=200 mg/dL plus symp toms. Lactate WB 3.1 (H) 0.5 - 2.2 mmol/L [facility] Specimen Anatomical Collection Method Collection Time Receive d Time (Source) Location / / Volume Laterality Blood specimen 07/07/2017 5:31 PM 017 5:31 (specimen) EST PM EST Daphne Shahid MD CHEMISTRY ORDERABLES Performing Organization Address City/State/ZIP [place] [address] Fibrinogen (07/07/2017 5:30 PM EST) P athologist Signature Fibrinogen 224 180 - 510 [facility] mg/dL [facility] Comment: Called by: JEET, [...] Perez MD HEMATOLOGY ORDERABLES Performing Organization Address City/[facility]/ZIP Code Phon e Number [address] APTT (07/07/2017 5:30 PM EST) athologist Signature PTT 30 25 - 35 sec [facility] Comment: The recommended therapeutic range for fu ll dose, unfractionated heparin at [facility] is 80 ? 114 seconds. The use [...] Perez MD HEMATOLOGY ORDERABLES Performing Organization Address City/[facility]/ZIP [facility] [place] [address] (ABNORMAL) Prothrombin Time (07/07/2017 5:30 PM EST) athologist Signature PT 19.0 (H) 11.8 - 14.0 [facility] [...] Organization Address City/State/ZIP [place] [address] (ABNORMAL) Hemogram (07/07/2017 5:30 PM EST) athologist Signature WBC 19.6 (H) 4.0 - 9.5 [facility] x10(3)/[facility] LABORATORY RBC 3.08 (L) 4.58 - [facility] 5.54 [facility] x10(6)/[facility] LABORATORY Hemoglobin 9.2 (L) 13.7 - [facility] 16.5 gm/dL [facility] Hematocrit 28.0 (L) 40.5 - [facility] 48.5 % [facility] Comment: This result has been called to MONICA WEINSTEIN SON by DONALD GROSSMAN on 07 07 2017 at 1759, and has been read back. MCV 90.9 82.9 - 93.1 [facility] LABORATORY MCH 29.9 27.5 - 32.1 pg [facility] MCHC 32.9 32.0 - 35.7 gm/dL [facility] Platelets 155 145 - 357 x10(3)/[facility] LABORATORY RDWSD 46.5 (H) 36.0 - 45.0 [facility] LABORATORY RDWCV 14.1 (H) 11.4 - 13.8 % [facility] MPV 9.5 7.6 - 12.9 [facility] LABORATORY nRBC % Auto 0.0 % [facility] nRBC Abs Auto 0.000 0.000 - 0.000 x10(3)/mcL M [facility] LABORATORY Specimen Anatomical Collection Method Collection Time Receive d Time (Source) Location / / Volume Laterality Blood specimen 07/07/2017 5:30 PM 017 5:34 (specimen) EST PM EST Resulting Agency Comment Spec In Lab Yifan Perez MD HEMATOLOGY ORDERABLES Performing Organization Address City/[facility]/ZIP Code Phon e Number [address] Prepare Platelets, Apheresis (07/07/2017 5:00 PM EST) P athologist Signature Dispensed? Yes [facility] Specimen Anatomical Collection Method Collection Time Receive d Time (Source) Location / / Volume Laterality Blood specimen 07/07/2017 5:00 PM 017 4:58 (specimen) EST PM EST Daphne Shahid MD BLOOD BANK ORDERABLES Performing Organization Address City/[facility]/ZIP Code Phon e Number [address] Platelet count (07/07/2017 4:55 PM EST) P athologist Signature Platelets 177 145 - 357 [facility] x10(3)/[facility] LABORATORY Plat Immature 1.5 0.0 - 7.4 [facility] % % [facility] Comment: Limitation of the Immature Platelet Frac tion (IPF)-May be less reliable when the platelet count is less than [id number]/u L due to statistical imprecision. The IPF [...] in a decreased state of production. References: [employer] The Clinical Value of the Immature Platelet Fraction (IPF) in Cell Recovery Document Number 10-1143 12/2010 [employer] The Role of the Imm ature [...] Organization Address City/State/[place] [address] (ABNORMAL) Hemoglobin and Hematocrit, blood (07/07/2017 4:55 PM EST) P athologist Signature Hemoglobin 9.1 (L) 13.7 - 16.5 [facility] gm/dL [facility] Comment: This result has [...] Organization Address City/State/[place] [address] (ABNORMAL) BLOOD GAS 2 ARTERIAL (07/07/2017 4:38 PM EST) Analysis Performed At Patho logist Time Signature pH Art 7.37 7.35 - [facility] 7.45 [facility] pCO2 Art 44 35 - 45 [facility] mmHg [facility] pO2 Art 322 (H) 85 - 104 [facility] LABORATORY HCO3 Art 24.9 20.0 - [facility] 26.0 [facility] mmol/L [facility] LABORATORY BE Art -0.4 -3.0 - 3.0 [facility] mmol/L [facility] Hgb Blood Gas 10.1 (L) 13.7 - [facility] 16.5 gm/dL [facility] O2HB Art 98.7 (H) 94.0 - [facility] 97.0 % [facility] COHB Art 0.1 % [facility] Comment: Nonsmokers: 0.5-1.5% COHB Smokers: Variable, but usually less than 10% Toxic: 20-30% COHB Lethal: Greater than 60% COHB METHB Art 0.3 <=1.5 % [facility] Na Whole Blood 130 (L) 135 - 145 mmol/L [facility] K Whole Blood 5.7 (H) 3.5 - 5.0 mmol/L [facility] Comment: Please note: Patients with WBC >100,000 may have falsely elevated Potassium levels. Contact the Clinical Chemistry L aboratory if there are any questions. ICa Whole Blood 0.89 (Critical) 1.15 - 1.33 mmol/L [facility] Comment: Noted by wind instrument repairer. Note: ??Total bilirubin higher than 20 m g/dL may lead to falsely low ionized calcium. CL Whole Blood 101 98 - 107 mmol/L [facility] Gluc Whole Bld 295 (H) 65 - 199 mg/dL [facility] Comment: Diabetes: >=200 mg/dL plus symp toms. Lactate WB 1.7 0.5 - 2.2 mmol/L [facility] Specimen Anatomical Collection Method Collection Time Receive d Time (Source) Location / / Volume Laterality Blood specimen 07/07/2017 4:38 PM 017 4:38 (specimen) EST PM EST Daphne Shahid MD CHEMISTRY ORDERABLES Performing Organization Address City/State/ZIP [place] [address] (ABNORMAL) BLOOD GAS 2 VENOUS (07/07/2017 4:06 PM EST) Analysis Performed At Patho logist Time Signature pH Cody 7.31 (L) 7.32 - [facility] 7.42 [facility] pCO2 [place] 47 41 - 51 [facility] LABORATORY pO2 [place] 53 (H) 25 - 40 [facility] LABORATORY HCO3 [place] 22.7 mmol/L [facility] BE Cody -3.7 mmol/L [facility] Hgb Blood Gas 10.2 (L) 13.7 - [facility] 16.5 gm/dL [facility] O2HB [place] 81.0 % [facility] COHB Cody 1.0 % [facility] Comment: Nonsmokers: 0.5-1.5% COHB Smokers: Variable, but usually less than 10% Toxic: 20-30% COHB Lethal: Greater than 60% COHB METHB [place] 0.3 <=1.5 % [facility] Na Whole Blood 132 (L) 135 - 145 mmol/L [facility] K Whole Blood 5.3 (H) 3.5 - 5.0 mmol/L [facility] Comment: Please note: Patients with WBC >100,000 may have falsely elevated Potassium levels. Contact the Clinical Chemistry L aboratory if there are any questions. ICa Whole Blood 0.90 (Critical) 1.15 - 1.33 mmol/L [facility] Comment: Noted by wind instrument repairer. Note: ??Total bilirubin higher than 20 m g/dL may lead to falsely low ionized calcium. CL Whole Blood 100 98 - 107 mmol/L [facility] Gluc Whole Bld 231 (H) 65 - 199 mg/dL [facility] Comment: Diabetes: >=200 mg/dL plus symp toms Lactate WB 1.1 0.5 - 2.2 mmol/L [facility] BGas Source Venous [facility] Specimen Anatomical Collection Method Collection Time Receive d Time (Source) Location / / Volume Laterality Blood specimen 07/07/2017 4:06 PM 017 4:06 (specimen) EST PM EST Daphne Shahid MD CHEMISTRY ORDERABLES Performing Organization Address City/State/ZIP [place] [address] (ABNORMAL) BLOOD GAS 2 ARTERIAL (07/07/2017 4:05 PM EST) Analysis Performed At Patho logist Time Signature pH Art 7.36 7.35 - [facility] 7.45 [facility] pCO2 Art 40 35 - 45 [facility] mmHg [facility] pO2 Art 282 (H) 85 - 104 [facility] mmHg [facility] HCO3 Art 22.1 20.0 - [facility] 26.0 [facility] mmol/L [facility] BE Art -3.4 (L) -3.0 - 3.0 [facility] mmol/L [facility] Hgb Blood Gas 10.2 (L) 13.7 - [facility] 16.5 gm/dL [facility] O2HB Art 98.4 (H) 94.0 - [facility] 97.0 % [facility] COHB Art 0.3 % [facility] Comment: Nonsmokers: 0.5-1.5% COHB Smokers: Variable, but usually less than 10% Toxic: 20-30% COHB Lethal: Greater than 60% COHB METHB Art 0.3 <=1.5 % [facility] Na Whole Blood 131 (L) 135 - 145 mmol/L [facility] K Whole Blood 5.4 (H) 3.5 - 5.0 mmol/L [facility] Comment: Please note: Patients with WBC >100,000 may have falsely elevated Potassium levels. Contact the Clinical Chemistry L aboratory if there are any questions. ICa Whole Blood 0.86 (Critical) 1.15 - 1.33 mmol/L [facility] Comment: Noted by wind instrument repairer. Note: ??Total bilirubin higher than 20 m g/dL may lead to falsely low ionized calcium. CL Whole Blood 101 98 - 107 mmol/L [facility] Gluc Whole Bld 260 (H) 65 - 199 mg/dL [facility] Comment: Diabetes: >=200 mg/dL plus symp toms. Lactate WB 1.4 0.5 - 2.2 mmol/L [facility] Specimen Anatomical Collection Method Collection Time Receive d Time (Source) Location / / Volume Laterality Blood specimen 07/07/2017 4:05 PM 017 4:05 (specimen) EST PM EST Daphne Shahid MD CHEMISTRY ORDERABLES Performing Organization Address City/State/ZIP [place] [address] (ABNORMAL) BLOOD GAS 2 ARTERIAL (07/07/2017 2:29 PM EST) Analysis Performed At Patho logist Time Signature pH Art 7.43 7.35 - [facility] 7.45 [facility] pCO2 Art 36 35 - 45 [facility] mmHg [facility] pO2 Art 221 (H) 85 - 104 [facility] HCO3 Art 23.2 20.0 - [facility] 26.0 [facility] mmol/L [facility] BE Art -1.2 -3.0 - 3.0 [facility] mmol/L [facility] Hgb Blood Gas 13.9 13.7 - [facility] 16.5 gm/dL [facility] O2HB Art 97.8 (H) 94.0 - [facility] 97.0 % [facility] COHB Art 1.1 % [facility] Lactate WB 1.5 0.5 - 2.2 mmol/L [facility] Specimen Anatomical Collection Method Collection Time Receive d Time (Source) Location / / Volume Laterality Blood specimen 07/07/2017 2:29 PM 017 2:29 (specimen) EST PM EST Daphne Shahid MD CHEMISTRY ORDERABLES Performing Organization Address City/[facility]/ZIP Code Phon e Number [address] Prepare Coag Factors (Non-Hemophilia) (07/07/2017 1:25 PM EST) P athologist Signature Dispensed? Yes [facility] Specimen Anatomical Collection Method Collection Time Receive d Time (Source) Location / / Volume Laterality Blood specimen 07/07/2017 1:25 PM 017 1:21 (specimen) EST PM EST Daphne Shahid MD BLOOD BANK ORDERABLES Performing Organization Address City/[facility]/[place] [address] Prepare RBC (07/07/2017 1:10 PM EST) P athologist Signature Dispensed? Yes [facility] Specimen Anatomical Collection Method Collection Time Receive d Time (Source) Location / / Volume Laterality Blood specimen 07/07/2017 1:10 PM 017 1:05 (specimen) EST PM EST Daphne Shahid MD BLOOD BANK ORDERABLES Performing Organization Address City/[facility]/[place] [address] POCT Glucose (07/07/2017 11:56 AM EST) P athologist Signature POC Glucose 188 65 - 199 [facility] mg/dL [facility] Comment: Supplemental ranges: <140 mg/dL before meals <180 mg/dL all other times of the day Specimen Anatomical Collection Method Collection Time Receive d Time (Source) Location / / Volume Laterality Blood specimen 07/07/2017 11:56 7 (specimen) AM EST 11:56 AM EST Daphne Shahid MD POINT OF CARE TEST ORDERABLE S Performing Organization Address City/State/ZIP Code Phon e Number [address] POCT Glucose (07/07/2017 11:05 AM EST) P athologist Signature POC Glucose 168 65 - 199 [place] mg/dL [facility] Comment: Supplemental ranges: <140 mg/dL before meals <180 mg/dL all other times of the day Specimen Anatomical Collection Method Collection Time Receive d Time (Source) Location / / Volume Laterality Blood specimen 07/07/2017 11:05 7 (specimen) AM EST 11:05 AM EST Daphne Shahid MD POINT OF CARE TEST ORDERABLE S Performing Organization Address City/[facility]/ZIP Code Phon e Number [address] POCT Glucose (07/07/2017 10:02 AM EST) P athologist Signature POC Glucose 191 65 - 199 [place] mg/dL [facility] Comment: Supplemental ranges: <140 mg/dL before meals <180 mg/dL all other times of the day Specimen Anatomical Collection Method Collection Time Receive d Time (Source) Location / / Volume Laterality Blood specimen 07/07/2017 10:02 7 (specimen) AM EST 10:02 AM EST Daphne Shahid MD POINT OF CARE TEST ORDERABLE S Performing Organization Address City/State/[place] [address] POCT Glucose (07/07/2017 7:53 AM EST) P athologist Signature POC Glucose 178 65 - 199 [place] mg/dL [facility] Comment: Supplemental ranges: <140 mg/dL before meals <180 mg/dL all other times of the day Specimen Anatomical Collection Method Collection Time Receive d Time (Source) Location / / Volume Laterality Blood specimen 07/07/2017 7:53 AM 017 7:53 (specimen) EST AM EST Daphne Shahid MD POINT OF CARE TEST ORDERABLE S Performing Organization Address City/State/ZIP Code Phon e Number [address] POCT Glucose (07/07/2017 7:03 AM EST) athologist Signature POC Glucose 188 65 - 199 [facility] Comment: Supplemental ranges: <140 mg/dL before meals <180 mg/dL all other times of the day Specimen Anatomical Collection Method Collection Time Receive d Time (Source) Location / / Volume Laterality Blood specimen 07/07/2017 7:03 AM 017 7:03 (specimen) EST AM EST Daphne Shahid MD POINT OF CARE TEST ORDERABLE S Performing Organization Address City/[facility]/[place] [address] (ABNORMAL) POCT Glucose (07/07/2017 6:17 AM EST) athologist Signature POC Glucose 207 (H) 65 - 199 [facility]/dL [facility] Comment: Supplemental ranges: <140 mg/dL before meals <180 mg/dL all other times of the day Specimen Anatomical Collection Method Collection Time Receive d Time (Source) Location / / Volume Laterality Blood specimen 07/07/2017 6:17 AM 017 6:17 (specimen) EST AM EST Daphne Shahid MD POINT OF CARE TEST ORDERABLE S Performing Organization Address City/[facility]/ZIP Code Phon e Number [address] Differential, Automated (07/07/2017 5:15 AM EST) athologist Signature Neutrophils % 69.7 % [facility] Neutr Abs (ANC) 5.32 1.70 - [facility] 6.10 [facility] x10(3)/[facility] LABORATORY Lymphocytes % 16.3 % [facility] Lymphocytes Abs 1.2 0.9 - 3.2 [facility] x10(3)/[facility] LABORATORY Monocytes % 10.5 % [facility] Monocyte Abs 0.8 0.3 - 0.9 [facility] x10(3)/[facility] LABORATORY Eosinophils % 2.5 % [facility] Eosinophils Abs 0.2 0.0 - 0.4 [facility] x10(3)/[facility] LABORATORY Basophils % 0.7 % [facility] Basophils Abs 0.0 0.0 - 0.1 [facility] x10(3)/[facility] LABORATORY Immature Gran % 0.30 % [place] [...] Melisa Gran Abs 0.02 0.00 - 0.04 x10(3)/[facility]ATORY Specimen Anatomical Collection Method Collection Time Receive d Time (Source) Location / / Volume Laterality Blood specimen 07/07/2017 5:15 AM 017 5:34 (specimen) EST AM EST Resulting Agency Comment Spec In Lab Daphne Shahid MD HEMATOLOGY ORDERABLES Performing Organization Address City/State/ZIP [place] [address] (ABNORMAL) Hemogram (07/07/2017 5:15 AM EST) Analysis Performed At Patho logist Time Signature WBC 7.6 4.0 - 9.5 [facility] x10(3)/[facility] LABORATORY RBC 4.82 4.58 - [facility] 5.54 [facility] x10(6)/[facility] LABORATORY Hemoglobin 14.4 13.7 - [facility] 16.5 gm/dL [facility] Hematocrit 42.1 40.5 - [facility] 48.5 % [facility] MCV 87.3 82.9 - [facility] 93.1 fL [facility] MCH 29.9 27.5 - [facility] 32.1 pg [facility] MCHC 34.2 32.0 - [facility] 35.7 gm/dL [facility] Platelets 188 145 - 357 [facility] x[facility](3[facility] LABORATORY RDWSD 45.1 (H) 36.0 - [place] R[place] 45.0 [facility] LABORATORY RDWCV 14.3 (H) 11.4 - [facility] 13.8 % [facility] MPV 9.4 7.6 - 12.9 [facility] LABORATORY nRBC % Auto 0.0 % [facility] nRBC Abs Auto 0.000 0.000 - [place] DAVIS 0.000 [facility] x10(3)/[facility] LABORATORY Specimen Anatomical Collection Method Collection Time Receive d Time (Source) Location / / Volume Laterality Blood specimen 07/07/2017 5:15 AM 017 5:34 (specimen) EST AM EST Resulting Agency Comment Spec In Lab Daphne Shahid MD HEMATOLOGY ORDERABLES Performing Organization Address City/[facility]/ZIP Code Phon e Number [address] (ABNORMAL) APTT (07/07/2017 5:15 AM EST) P athologist Signature PTT 69 (H) 25 - 35 sec [facility] Comment: The recommended therapeutic range for fu ll dose, unfractionated heparin at [facility] is 80 ? 114 seconds. The use [...] Organization Address City/State/ZIP Code Phon e Number [address] Magnesium (07/07/2017 5:15 AM EST) P athologist Signature Magnesium 0.94 0.69 - 1.07 [facility] mmol/L [facility] Specimen Anatomical Collection Method Collection Time Receive d Time (Source) Location / / Volume Laterality Blood specimen 07/07/2017 5:15 AM 017 5:34 (specimen) EST AM EST Resulting Agency Comment Spec In Lab Daphne Shahid MD CHEMISTRY ORDERABLES Performing Organization Address City/State/ZIP [place] [address] (ABNORMAL) Basic Metabolic Panel (non-fasting) (07/07/2017 5:15 AM EST) athologist Signature Glucose Lvl 203 (H) 65 - 199 [facility] mg/dL [facility] Comment: Diabetes: >=200 mg/dL plus symp toms BUN 15 10 - 20 mg/dL [facility] Creatinine 1.09 0.80 - 1.50 mg/dL [facility] Sodium 142 135 - 145 mmol/L [facility] Potassium 4.4 3.5 - 5.0 mmol/L [facility] Estimated GFR >60 >=60 [facility] Comment: The reported eGFR should be multiplied b y 1.2 for patients. The MDRD is not an appropriate measure o f renal function for patients with body mass extremes or in patients with acute kidney failure. http://[employer]/DHnkdep http://[employer]/DHMCnkf Specimen Anatomical Collection Method Collection Time Receive d Time (Source) Location / / Volume Laterality Blood specimen 07/07/2017 5:15 AM 017 5:34 (specimen) EST AM EST Resulting Agency Comment Spec In Lab Daphne Shahid MD CHEMISTRY ORDERABLES Performing Organization Address City/[facility]/[place] [address] (ABNORMAL) Cardiac Enzymes (LEB/CGP) (07/07/2017 5:15 AM EST) athologist Signature Troponin-T 2.07 (H) 0.00 - [place] OLIVASCK 0.00 ng/mL [facility] Comment: The 99th percentile for Troponin T is le ss than 0.01 ng/mL, any detectable cTnT concentration using this assay should be considered elevated. According to the third universal definit ion of myocardial infarction the following criteria with a clinical prese ntation consistent with acute myocardial ischemia meets the diagnosis for a myocardial infarction ([place]). Detection of a rise and/or fall of [...] additional sample may be indicated. Reference: Third Arbon Definition of Myocardial Infarction. Journal of the [employer] 2012;60:1581-98 CK, Total 88 0 - 200 unit/L [facility] Specimen Anatomical Collection Method Collection Time Receive d Time (Source) Location / / Volume Laterality Blood specimen 07/07/2017 5:15 AM 017 5:34 (specimen) EST AM EST Resulting Agency Comment Spec In Lab Daphne Shahid MD CHEMISTRY ORDERABLES Performing Organization Address City/[facility]/[place] [address] POCT Glucose (07/07/2017 5:01 AM EST) athologist Signature POC Glucose 182 65 - 199 [facility] mg/dL [facility] Comment: Supplemental ranges: <140 mg/dL before meals <180 mg/dL all other times of the day Specimen Anatomical Collection Method Collection Time Receive d Time (Source) Location / / Volume Laterality Blood specimen 07/07/2017 5:01 AM 017 5:01 (specimen) EST AM EST Daphne Shahid MD POINT OF CARE TEST ORDERABLE S Performing Organization Address City/State/ZIP Code Phon e Number [address] POCT Glucose (07/07/2017 4:08 AM EST) athologist Signature POC Glucose 199 65 - 199 [facility] mg/dL [facility] Comment: Supplemental ranges: <140 mg/dL before meals <180 mg/dL all other times of the day Specimen Anatomical Collection Method Collection Time Receive d Time (Source) Location / / Volume Laterality Blood specimen 07/07/2017 4:08 AM 017 4:08 (specimen) EST AM EST Daphne Shahid MD POINT OF CARE TEST ORDERABLE S Performing Organization Address City/State/ZIP Code Phon e Number [address] POCT Glucose (07/07/2017 3:03 AM EST) athologist Signature POC Glucose 188 65 - 199 [place] Z[place]AN mg/dL [facility] Comment: Supplemental ranges: <140 mg/dL before meals <180 mg/dL all other times of the day Specimen Anatomical Collection Method Collection Time Receive d Time (Source) Location / / Volume Laterality Blood specimen 07/07/2017 3:03 AM 017 3:03 (specimen) EST AM EST Daphne Shahid MD POINT OF CARE TEST ORDERABLE S Performing Organization Address City/State/[place] [address] (ABNORMAL) POCT Glucose (07/07/2017 2:08 AM EST) athologist Signature POC Glucose 200 (H) 65 - 199 [facility] Comment: Supplemental ranges: <140 mg/dL before meals <180 mg/dL all other times of the day Specimen Anatomical Collection Method Collection Time Receive d Time (Source) Location / / Volume Laterality Blood specimen 07/07/2017 2:08 AM 017 2:08 (specimen) EST AM EST Daphne Shahid MD POINT OF CARE TEST ORDERABLE S Performing Organization Address City/State/[place] [address] (ABNORMAL) POCT Glucose (07/07/2017 1:31 AM EST) athologist Signature POC Glucose 209 (H) 65 - 199 [facility] Comment: Supplemental ranges: <140 mg/dL before meals <180 mg/dL all other times of the day Specimen Anatomical Collection Method Collection Time Receive d Time (Source) Location / / Volume Laterality Blood specimen 07/07/2017 1:31 AM 017 1:31 (specimen) EST AM EST Daphne Shahid MD POINT OF CARE TEST ORDERABLE S Performing Organization Address City/[facility]/[place] [address] XR Chest PA or [...] [facility] mg/dL [facility] Comment: Supplemental ranges: <140 mg/dL before meals <180 mg/dL all other times of the day Specimen Anatomical Collection Method Collection Time Receive d Time (Source) Location / / Volume Laterality Blood specimen 07/07/2017 12:07 7 (specimen) AM EST 12:07 AM EST Daphne Shahid MD POINT OF CARE TEST ORDERABLE S Performing Organization Address City/State/ZIP Code Phon e Number [address] (ABNORMAL) APTT (07/07/2017 12:00 AM EST) athologist Signature PTT 103 (H) 25 - 35 sec [facility] Comment: The recommended therapeutic range for fu ll dose, unfractionated heparin at [facility] is 80 ? 114 seconds. The use [...] Organization Address City/State/ZIP Code Phon e Number [address] POCT Glucose (07/06/2017 9:55 PM EST) athologist Signature POC Glucose 109 65 - 199 [facility] mg/dL [facility] Comment: Supplemental ranges: <140 mg/dL before meals <180 mg/dL all other times of the day Specimen Anatomical Collection Method Collection Time Receive d Time (Source) Location / / Volume Laterality Blood specimen 07/06/2017 9:55 PM 017 9:55 (specimen) EST PM EST Daphne Shahid MD POINT OF CARE TEST ORDERABLE S Performing Organization Address City/State/ZIP Code Phon e Number [address] POCT Glucose (07/06/2017 9:04 PM EST) athologist Signature POC Glucose 120 65 - 199 [facility] mg/dL [facility] Comment: Supplemental ranges: <140 mg/dL before meals <180 mg/dL all other times of the day Specimen Anatomical Collection Method Collection Time Receive d Time (Source) Location / / Volume Laterality Blood specimen 07/06/2017 9:04 PM 017 9:04 (specimen) EST PM EST Daphne Shahid MD POINT OF CARE TEST ORDERABLE S Performing Organization Address City/State/ZIP Code Phon e Number [address] POCT Glucose (07/06/2017 7:45 PM EST) athologist Signature POC Glucose 158 65 - 199 [facility] mg/dL [facility] Comment: Supplemental ranges: <140 mg/dL before meals <180 mg/dL all other times of the day Specimen Anatomical Collection Method Collection Time Receive d Time (Source) Location / / Volume Laterality Blood specimen 07/06/2017 7:45 PM 017 7:45 (specimen) EST PM EST Daphne Shahid MD POINT OF CARE TEST ORDERABLE S Performing Organization Address City/State/[place] [address] Potassium (07/06/2017 7:40 PM EST) athologist Signature Potassium 3.9 3.5 - 5.0 [facility] mmol/L [facility] Comment: Please note: ??Patients [...] City/State/ZIP Code Phon e Number [place] [id number] (ABNORMAL) Cardiac Enzymes (LEB/CGP) (07/06/2017 7:40 PM EST) athologist Signature Troponin-T 2.27 (H) 0.00 - [place] RY[place] 0.00 ng/mL [facility] Comment: The 99th percentile for Troponin T is le ss than 0.01 ng/mL, any detectable cTnT concentration using this assay should be considered elevated. According to the third universal definit ion of myocardial infarction the following criteria with a clinical prese ntation consistent with acute myocardial ischemia meets the diagnosis for a myocardial infarction ([place]). Detection of a rise and/or fall of [...] additional sample may be indicated. Reference: Third Arbon Definition of Myocardial Infarction. Journal of the [employer] 2012;60:1581-98 CK, Total 93 0 - 200 unit/L [facility] Specimen Anatomical Collection Method Collection Time Receive d Time (Source) Location / / Volume Laterality Blood specimen 07/06/2017 7:40 PM 017 7:52 (specimen) EST PM EST Resulting Agency Comment Spec In Lab Daphne Shahid MD CHEMISTRY ORDERABLES Performing Organization Address City/[facility]/[place] [address] (ABNORMAL) POCT Glucose (07/06/2017 7:13 PM EST) P athologist Signature POC Glucose 200 (H) 65 - 199 [facility] mg/dL [facility] Comment: Supplemental ranges: <140 mg/dL before meals <180 mg/dL all other times of the day Specimen Anatomical Collection Method Collection Time Receive d Time (Source) Location / / Volume Laterality Blood specimen 07/06/2017 7:13 PM 017 7:13 (specimen) EST PM EST Daphne Shahid MD POINT OF CARE TEST ORDERABLE S Performing Organization Address City/[facility] [place] [address] (ABNORMAL) APTT (07/06/2017 6:15 PM EST) P athologist Signature PTT 94 (H) 25 - 35 sec [facility] Comment: The recommended therapeutic range for fu ll dose, unfractionated heparin at [facility] is 80 ? 114 seconds. The use [...] Shahid MD HEMATOLOGY ORDERABLES Performing Organization Address City/[facility]/ZIP Code Phon e Number [address] (ABNORMAL) POCT Glucose (07/06/2017 6:03 PM EST) athologist Signature POC Glucose 236 (H) 65 - 199 [facility] mg/dL [facility] Comment: Supplemental ranges: <140 mg/dL before meals <180 mg/dL all other times of the day Specimen Anatomical Collection Method Collection Time Receive d Time (Source) Location / / Volume Laterality Blood specimen 07/06/2017 6:03 PM 017 6:03 (specimen) EST PM EST Daphne Shahid MD POINT OF CARE TEST ORDERABLE S Performing Organization Address City/State/[place] [address] (ABNORMAL) POCT Glucose (07/06/2017 5:01 PM EST) athologist Signature POC Glucose 235 (H) 65 - 199 [facility] mg/dL [facility] Comment: Supplemental ranges: <140 mg/dL before meals <180 mg/dL all other times of the day Specimen Anatomical Collection Method Collection Time Receive d Time (Source) Location / / Volume Laterality Blood specimen 07/06/2017 5:01 PM 017 5:01 (specimen) EST PM EST Daphne Shahid MD POINT OF CARE TEST ORDERABLE S Performing Organization Address City/State/[place] [address] (ABNORMAL) POCT Glucose (07/06/2017 4:06 PM EST) athologist Signature POC Glucose 202 (H) 65 - 199 [facility] mg/dL [facility] Comment: Supplemental ranges: <140 mg/dL before meals <180 mg/dL all other times of the day Specimen Anatomical Collection Method Collection Time Receive d Time (Source) Location / / Volume Laterality Blood specimen 07/06/2017 4:06 PM 017 4:06 (specimen) EST PM EST Daphne Shahid MD POINT OF CARE TEST ORDERABLE S Performing Organization Address City/State/[place] [address] POCT Glucose (07/06/2017 2:59 PM EST) athologist Signature POC Glucose 178 65 - 199 [facility] Comment: Supplemental ranges: <140 mg/dL before meals <180 mg/dL all other times of the day Specimen Anatomical Collection Method Collection Time Receive d Time (Source) Location / / Volume Laterality Blood specimen 07/06/2017 2:59 PM 017 2:59 (specimen) EST PM EST Daphne Shahid MD POINT OF CARE TEST ORDERABLE S Performing Organization Address City/State/ZIP Code Phon e Number [place] [id number] [facility] [address] Drive (ABNORMAL) Cardiac Enzymes (LEB/CGP) (07/06/2017 2:10 PM EST) athologist Signature Troponin-T 2.34 (H) 0.00 - [facility] 0.00 ng/mL [facility] Comment: The 99th percentile for Troponin T is le ss than 0.01 ng/mL, any detectable cTnT concentration using this assay should be considered elevated. According to the third universal definit ion of myocardial infarction the following criteria with a clinical prese ntation consistent with acute myocardial ischemia meets the diagnosis for a myocardial infarction ([place]). Detection of a rise and/or fall of [...] additional sample may be indicated. Reference: Third Arbon Definition of Myocardial Infarction. Journal of the [employer] College [employer] 2012;60:1581-98 CK, Total 101 0 - 200 unit/L [facility] LABORATORY Specimen Anatomical Collection Method Collection Time Receive d Time (Source) Location / / Volume Laterality Blood specimen 07/06/2017 2:10 PM 017 2:26 (specimen) EST PM EST Resulting Agency Comment Spec In Lab Daphne Shahid MD CHEMISTRY ORDERABLES Performing Organization Address City/State/ZIP Code Phon e Number [address] POCT Glucose (07/06/2017 2:08 PM EST) athologist Signature POC Glucose 192 65 - 199 [place] [facility] mg/dL [facility] Comment: Supplemental ranges: <140 mg/dL before meals <180 mg/dL all other times of the day Specimen Anatomical Collection Method Collection Time Receive d Time (Source) Location / / Volume Laterality Blood specimen 07/06/2017 2:08 PM 017 2:08 (specimen) EST PM EST Daphne Shahid MD POINT OF CARE TEST ORDERABLE S Performing Organization Address City/State/ZIP Code Phon e Number [address] POCT Glucose (07/06/2017 1:04 PM EST) athologist Signature POC Glucose 162 65 - 199 [facility]/dL [facility] Comment: Supplemental ranges: <140 mg/dL before meals <180 mg/dL all other times of the day Specimen Anatomical Collection Method Collection Time Receive d Time (Source) Location / / Volume Laterality Blood specimen 07/06/2017 1:04 PM 017 1:04 (specimen) EST PM EST Daphne Shahid MD POINT OF CARE TEST ORDERABLE S Performing Organization Address City/State/ZIP Code Phon e Number [address] POCT Glucose (07/06/2017 12:05 PM EST) athologist Signature POC Glucose 196 65 - 199 [facility]/dL [facility] Comment: Supplemental ranges: <140 mg/dL before meals <180 mg/dL all other times of the day Specimen Anatomical Collection Method Collection Time Receive d Time (Source) Location / / Volume Laterality Blood specimen 07/06/2017 12:05 7 (specimen) PM EST 12:05 PM EST Daphne Shahid MD POINT OF CARE TEST ORDERABLE S Performing Organization Address [place]/[facility]/ZIP [place] [address] EKG 12 Lead (07/06/2017 12:00 PM EST) Component Value Ref Range Test Analysis Performed Pathologis t Method Time At Signature Ventricular rate 91 BPM MUSE SYSTEM Atrial Rate 91 BPM MUSE SYSTEM P-R Interval 140 ms MUSE SYSTEM QRS Duration 94 ms MUSE SYSTEM Q-T Interval 394 ms MUSE SYSTEM QTC Calculated 484 ms MUSE SYSTEM (Bezet) Calculated P [place] 36 degrees MUSE SYSTEM Calculated R [place] -19 degrees MUSE SYSTEM Calculated T [place] 104 degrees MUSE SYSTEM INTERPRETATION Normal sinus rhythm MUSE SYSTEM 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) ST & T wave abnormality, consider lateral ischemia Abnormal ECG When compared with ECG of 05-JUL-2017 20:39, No significant change was found Confirmed by MD Luci, Taurus Braun ([id number]) on 07/06/2017 5:07:33 PM Specimen Anatomical Collection Method Collection Time Receive d Time (Source) Location / / Volume Laterality 07/06/2017 12:00 07/06/2017 5:07 PM EST PM EST Daphne Shahid MD ECG ORDERABLES Performing Organization Address [place]/[facility]/ZIP Code Phon e Number MUSE SYSTEM ABORH Recheck Status (07/06/2017 12:00 PM EST) [facility] Method Time Signature ABORH Type Completed [facility] LABORATORY Specimen Anatomical Collection Method Collection Time Receive d Time (Source) Location / / Volume Laterality Blood specimen 07/06/2017 12:00 7 (specimen) PM EST 12:24 PM EST Resulting Agency Comment Spec In Lab Daphne Shahid MD BLOOD BANK ORDERABLES Performing Organization Address [place]/[facility]/ZIP [place] [address] Antibody screen (07/06/2017 12:00 PM EST) [facility] Method Time Signature Ab Screen Negative [facility] LABORATORY Expires at 07/09/2017 [facility] [id number] on: [facility] Specimen Anatomical Collection Method Collection Time Receive d Time (Source) Location / / Volume Laterality Blood specimen 07/06/2017 12:00 7 (specimen) PM EST 12:24 PM EST Resulting Agency Comment Spec In Lab Daphne Shahid MD BLOOD BANK ORDERABLES Performing Organization Address City/[facility]/[place] [address] ABO/Rh Typing (07/06/2017 12:00 PM EST) P athologist Signature ABORh Type O Pos [facility] LABORATORY Specimen Anatomical Collection Method Collection Time Receive d Time (Source) Location / / Volume Laterality Blood specimen 07/06/2017 12:00 7 (specimen) PM EST 12:24 PM EST Resulting Agency Comment Spec In Lab Daphne Shahid MD BLOOD BANK ORDERABLES Performing Organization Address City/[facility] [place] [address] Prothrombin Time (07/06/2017 11:24 AM EST) P athologist Signature PT 13.3 11.8 - 14.0 [facility] LABORATORY INR 1.0 0.9 - 1.1 [place] [...] Shahid MD HEMATOLOGY ORDERABLES Performing Organization Address City/[facility]/ZIP Code Phon e Number [address] (ABNORMAL) APTT (07/06/2017 11:24 AM EST) athologist Signature PTT 52 (H) 25 - 35 sec [facility] Comment: The recommended therapeutic range for fu ll dose, unfractionated heparin at [facility] is 80 ? 114 seconds. The use [...] Shahid MD HEMATOLOGY ORDERABLES Performing Organization Address City/[facility] Phon e Number [address] POCT Glucose (07/06/2017 11:02 AM EST) athologist Signature POC Glucose 187 65 - 199 [facility] mg/dL [facility] Comment: Supplemental ranges: <140 mg/dL before meals <180 mg/dL all other times of the day Specimen Anatomical Collection Method Collection Time Receive d Time (Source) Location / / Volume Laterality Blood specimen 07/06/2017 11:02 7 (specimen) AM EST 11:02 AM EST Daphne Shahid MD POINT OF CARE TEST ORDERABLE S Performing Organization Address City/[facility]/[place] [address] POCT Glucose (07/06/2017 10:18 AM EST) athologist Signature POC Glucose 193 65 - 199 [facility]/dL [facility] Comment: Supplemental ranges: <140 mg/dL before meals <180 mg/dL all other times of the day Specimen Anatomical Collection Method Collection Time Receive d Time (Source) Location / / Volume Laterality Blood specimen 07/06/2017 10:18 7 (specimen) AM EST 10:18 AM EST Daphne Shahid MD POINT OF CARE TEST ORDERABLE S Performing Organization Address City/State/ZIP [place] [address] POCT Glucose (07/06/2017 9:25 AM EST) athologist Signature POC Glucose 182 65 - 199 [facility] mg/dL [facility] Comment: Supplemental ranges: <140 mg/dL before meals <180 mg/dL all other times of the day Specimen Anatomical Collection Method Collection Time Receive d Time (Source) Location / / Volume Laterality Blood specimen 07/06/2017 9:25 AM 017 9:25 (specimen) EST AM EST Daphne Shahid MD POINT OF CARE TEST ORDERABLE S Performing Organization Address City/State/ZIP Code Phon e Number [address] (ABNORMAL) Cardiac Enzymes (LEB/CGP) (07/06/2017 8:10 AM EST) athologist [employer] Troponin-T 2.26 (H) 0.00 - [facility] 0.00 ng/mL [facility] Comment: The 99th percentile for Troponin T is le ss than 0.01 ng/mL, any detectable cTnT concentration using this assay should be considered elevated. According to the third universal definit ion of myocardial infarction the following criteria with a clinical prese ntation consistent with acute myocardial ischemia meets the diagnosis for a myocardial infarction ([place]). Detection of a rise and/or fall of [...] additional sample may be indicated. Reference: Third Arbon Definition of Myocardial Infarction. Journal of the [employer] College [employer]iology 2012;60:1581-98 CK, Total 124 0 - 200 unit/L [facility] Specimen Anatomical Collection Method Collection Time Receive d Time (Source) Location / / Volume Laterality Blood specimen 07/06/2017 8:10 AM 017 8:23 (specimen) EST AM EST Resulting Agency Comment Spec In Lab Daphne Shahid MD CHEMISTRY ORDERABLES Performing Organization Address City/[facility]/ZIP Code Phon e Number [address] Magnesium (07/06/2017 8:10 AM EST) P athologist Signature Magnesium 0.84 0.69 - 1.07 [facility] mmol/L [facility] Specimen Anatomical Collection Method Collection Time Receive d Time (Source) Location / / Volume Laterality Blood specimen 07/06/2017 8:10 AM 017 8:21 (specimen) EST AM EST Resulting Agency Comment Spec In Lab Daphne Shahid MD CHEMISTRY ORDERABLES Performing Organization Address City/[facility]/ZIP Code Phon e Number [address] (ABNORMAL) Basic Metabolic Panel (non-fasting) (07/06/2017 8:10 AM EST) P athologist Signature Glucose Lvl 199 65 - 199 [facility] mg/dL [facility] Comment: Diabetes: >=200 mg/dL plus symp toms BUN 16 10 - 20 mg/dL [facility] Creatinine 1.04 0.80 - 1.50 mg/dL [facility] Sodium 141 135 - 145 mmol/L [facility] Potassium 4.5 3.5 - 5.0 mmol/L [facility] [...] Calcium 8.1 (L) 8.5 - 10.5 mg/dL [facility] Estimated GFR >60 >=60 [facility] Comment: The reported eGFR should be multiplied b y 1.2 for patients. The MDRD is not an appropriate measure o f renal function for patients with body mass extremes or in patients with acute kidney failure. http://[employer]/DHnkdep http://[employer]/DHMCnkf Specimen Anatomical Collection Method Collection Time Receive d Time (Source) Location / / Volume Laterality Blood specimen 07/06/2017 8:10 AM 017 8:21 (specimen) EST AM EST Resulting Agency Comment Spec In Lab Daphne Shahid MD CHEMISTRY ORDERABLES Performing Organization Address City/[facility]/ZIP Code Phon e Number [address] POCT Glucose (07/06/2017 7:34 AM EST) athologist Signature POC Glucose 198 65 - 199 [facility] mg/dL [facility] Comment: Supplemental ranges: <140 mg/dL before meals <180 mg/dL all other times of the day Specimen Anatomical Collection Method Collection Time Receive d Time (Source) Location / / Volume Laterality Blood specimen 07/06/2017 7:34 AM 017 7:34 (specimen) EST AM EST Daphne Shahid MD POINT OF CARE TEST ORDERABLE S Performing Organization Address City/State/ZIP Code Phon e Number [address] POCT Glucose (07/06/2017 7:03 AM EST) athologist Signature POC Glucose 181 65 - 199 [facility] mg/dL [facility] Comment: Supplemental ranges: <140 mg/dL before meals <180 mg/dL all other times of the day Specimen Anatomical Collection Method Collection Time Receive d Time (Source) Location / / Volume Laterality Blood specimen 07/06/2017 7:03 AM 017 7:03 (specimen) EST AM EST Daphne Shahid MD POINT OF CARE TEST ORDERABLE S Performing Organization Address City/State/ZIP Code Phon e Number [place] [phone]OS[address] XR Chest PA or [...] Signature POC Glucose 172 65 - 199 [facility] mg/dL [facility] Comment: Supplemental ranges: <140 mg/dL before meals <180 mg/dL all other times of the day Specimen Anatomical Collection Method Collection Time Receive d Time (Source) Location / / Volume Laterality Blood specimen 07/06/2017 6:21 AM 017 6:21 (specimen) EST AM EST Daphne Shahid MD POINT OF CARE TEST ORDERABLE S Performing Organization Address City/State/ZIP Code Phon e Number [address] POCT Glucose (07/06/2017 5:08 AM EST) athologist Signature POC Glucose 154 65 - 199 [facility] mg/dL [facility] Comment: Supplemental ranges: <140 mg/dL before meals <180 mg/dL all other times of the day Specimen Anatomical Collection Method Collection Time Receive d Time (Source) Location / / Volume Laterality Blood specimen 07/06/2017 5:08 AM 017 5:08 (specimen) EST AM EST Daphne Shahid MD POINT OF CARE TEST ORDERABLE S Performing Organization Address City/State/[place] [address] POCT Glucose (07/06/2017 4:05 AM EST) athologist Signature POC Glucose 142 65 - 199 [facility] mg/dL [facility] Comment: Supplemental ranges: <140 mg/dL before meals <180 mg/dL all other times of the day Specimen Anatomical Collection Method Collection Time Receive d Time (Source) Location / / Volume Laterality Blood specimen 07/06/2017 4:05 AM 017 4:05 (specimen) EST AM EST Daphne Shahid MD POINT OF CARE TEST ORDERABLE S Performing Organization Address City/State/[place] [address] POCT Glucose (07/06/2017 3:00 AM EST) athologist [facility] POC Glucose 116 65 - 199 [facility] mg/dL [facility] Comment: Supplemental ranges: <140 mg/dL before meals <180 mg/dL all other times of the day Specimen Anatomical Collection Method Collection Time Receive d Time (Source) Location / / Volume Laterality Blood specimen 07/06/2017 3:00 AM 017 3:00 (specimen) EST AM EST Daphne Shahid MD POINT OF CARE TEST ORDERABLE S Performing Organization Address City/[facility] Phon e Number [address] Potassium (07/06/2017 2:20 AM EST) [facility] Potassium 3.9 3.5 - 5.0 [facility] mmol/L [facility] Comment: Please note: ??Patients [...] Shahid MD CHEMISTRY ORDERABLES Performing Organization Address City/[facility] Phon e Number [address] Differential, Automated (07/06/2017 2:20 AM EST) [facility] Neut[facility] % 72.9 % [facility] Neutr Abs (ANC) 5.53 1.70 - [facility] 6.10 [facility] x10(3)/[facility] LABORATORY Lymphocytes % 16.4 % [facility] Lymphocytes Abs 1.2 0.9 - 3.2 [facility] x10(3)/[facility] LABORATORY Monocytes % 9.4 % [facility] Monocyte Abs 0.7 0.3 - 0.9 [facility] x10(3)/[facility] LABORATORY Eosinophils % 0.5 % [facility] Eosinophils Abs 0.0 0.0 - 0.4 [facility] x10(3)/[facility] LABORATORY Basophils % 0.4 % [facility] Basophils Abs 0.0 0.0 - 0.1 [facility] x10(3)/[facility] [...] Melisa Gran Abs 0.03 0.00 - 0.04 x10(3)/[facility] Y [facility] LABORATORY Specimen Anatomical Collection Method Collection Time Receive d Time (Source) Location / / Volume Laterality Blood specimen 07/06/2017 2:20 AM 017 2:33 (specimen) EST AM EST Resulting Agency Comment Spec In Lab Daphne Shahid MD HEMATOLOGY ORDERABLES Performing Organization Address City/State/ZIP [place] [address] (ABNORMAL) Hemogram (07/06/2017 2:20 AM EST) Analysis Performed At Patho logist Time Signature WBC 7.6 4.0 - 9.5 [facility] x10(3)/[facility] LABORATORY RBC 4.52 (L) 4.58 - [facility] 5.54 [facility] x10(6)/[facility] LABORATORY Hemoglobin 13.4 (L) 13.7 - [facility] 16.5 gm/dL [facility] Hematocrit 39.7 (L) 40.5 - [facility] 48.5 % [facility] MCV 87.8 82.9 - [facility] 93.1 fL [facility] MCH 29.6 27.5 - [facility] 32.1 pg [facility] MCHC 33.8 32.0 - [facility] 35.7 gm/dL [facility] Platelets 189 145 - 357 [facility] x10(3)/[facility] LABORATORY RDWSD 45.6 (H) 36.0 - [facility] 45.0 [facility] LABORATORY RDWCV 14.3 (H) 11.4 - [facility] 13.8 % [facility] MPV 9.1 7.6 - 12.9 [facility] LABORATORY nRBC % Auto 0.0 % [facility] LABOR[facility]ORY nRBC Abs Auto 0.000 0.000 - [facility] 0.000 [facility] x10(3)/[facility] LABORATORY Specimen Anatomical Collection Method Collection Time Receive d Time (Source) Location / / Volume Laterality Blood specimen 07/06/2017 2:20 AM 017 2:33 (specimen) EST AM EST Resulting Agency Comment Spec In Lab Daphne Shahid MD HEMATOLOGY ORDERABLES Performing Organization Address City/[facility]/ZIP Code Phon e Number [address] (ABNORMAL) APTT (07/06/2017 2:20 AM EST) P athologist Signature PTT 52 (H) 25 - 35 sec [facility] Comment: The recommended therapeutic range for fu ll dose, unfractionated heparin at [facility] is 80 ? 114 seconds. The use [...] Shahid MD HEMATOLOGY ORDERABLES Performing Organization Address City/[facility]/ZIP Code Phon e Number [address] POCT Glucose (07/06/2017 2:20 AM EST) P athologist Signature POC Glucose 115 65 - 199 [facility] mg/dL [facility] Comment: Supplemental ranges: <140 mg/dL before meals <180 mg/dL all other times of the day Specimen Anatomical Collection Method Collection Time Receive d Time (Source) Location / / Volume Laterality Blood specimen 07/06/2017 2:20 AM 017 2:20 (specimen) EST AM EST Daphne Shahid MD POINT OF CARE TEST ORDERABLE S Performing Organization Address City/[facility]/ZIP [place] [address] (ABNORMAL) Cardiac Enzymes (LEB/CGP) (07/06/2017 2:20 AM EST) athologist Signature Troponin-T 2.13 (H) 0.00 - [facility] 0.00 ng/mL [facility] Comment: The 99th percentile for Troponin T is le ss than 0.01 ng/mL, any detectable cTnT concentration using this assay should be considered elevated. According to the third universal definit ion of myocardial infarction the following criteria with a clinical prese ntation consistent with acute myocardial ischemia meets the diagnosis for a myocardial infarction ([place]). Detection of a rise and/or fall of [...] additional sample may be indicated. Reference: Third Arbon Definition of Myocardial Infarction. Journal of the [employer] 2012;60:1581-98 CK, Total 129 0 - 200 unit/L [facility]OR[facility]ORY Specimen Anatomical Collection Method Collection Time Receive d Time (Source) Location / / Volume Laterality Blood specimen 07/06/2017 2:20 AM 017 2:33 (specimen) EST AM EST Resulting Agency Comment Spec In Lab Daphne Shahid MD CHEMISTRY ORDERABLES Performing Organization Address City/State/ZIP [place] [address] (ABNORMAL) Hemoglobin A1c (07/06/2017 2:20 AM EST) Analysis Performed At [facility] Time Signature Hemoglobin A1C 6.8 (H) 4.3 - 5.6 [facility] Comment: Reference Range: 4.3 - 5.6% [...] Mellitus, Diabetes Care 2013; 36: Suppl. 1, S17-78 Est Avg Gluc See note mg/dL [facility] Comment: Estimated Average Glucose not [...] into estimated average glucose values. ??Diabetes Care 2008:31(8):7537-8384. Specimen Anatomical Collection Method Collection Time Receive d Time (Source) Location / / Volume Laterality Blood specimen 07/06/2017 2:20 AM 017 2:34 (specimen) EST AM EST Resulting Agency Comment Spec In Lab Daphne Shahid MD CHEMISTRY ORDERABLES Performing Organization Address City/State/ZIP [place] [address] (ABNORMAL) Lipid Panel (07/06/2017 2:20 AM EST) [facility] gist Method Time Signature Chol, Total 150 <=239 [facility] mg/dL [facility] Triglycerides 129 <=199 [facility] mg/dL [facility] HDL 32 (L) >=40 [facility] mg/dL [facility] LDL Cholesterol 92 <=190 [facility] mg/dL [facility] Chol/HDL Ratio 4.7 ratio [facility] Lipid See Note KATALINA Interpretation [facility] Comment: Lipid management should be guided by a p atient? s ASCVD risk, goals and preferences. ACC/AHA Guidelines recommend high intens ity statin if clinical ASCVD or LDL greater than or equal to 190 mg/dL. http://[employer].com/EVM-GRT-Acpplgpnq Adults aged 40-75 with LDL 70-189 mg/dL should have their 10 year ASCVD risk estimated with the ACC/AHA ASCVD risk es timator http://tools.acc.org/PLMKR-Kzal-Tibaslgq r/ Statin should be discussed if risk [...] Shahid MD CHEMISTRY ORDERABLES Performing Organization Address City/[facility]/ZIP Code Phon e Number [address] POCT Glucose (07/06/2017 1:09 AM EST) P athologist Signature POC Glucose 121 65 - 199 KATALINA RYAN mg/dL [facility] Comment: Supplemental ranges: <140 mg/dL before meals <180 mg/dL all other times of the day Specimen Anatomical Collection Method Collection Time Receive d Time (Source) Location / / Volume Laterality Blood specimen 07/06/2017 1:09 AM 017 1:09 (specimen) EST AM EST Daphne Shahid MD POINT OF CARE TEST ORDERABLE S Performing Organization Address City/[facility]/ZIP Code Phon e Number [address] POCT Glucose (07/06/2017 12:06 AM EST) P athologist Signature POC Glucose 147 65 - 199 [facility] RYAN mg/dL [facility] Comment: Supplemental ranges: <140 mg/dL before meals <180 mg/dL all other times of the day Specimen Anatomical Collection Method Collection Time Receive d Time (Source) Location / / Volume Laterality Blood specimen 07/06/2017 12:06 7 (specimen) AM EST 12:06 AM EST Daphne Shahid MD POINT OF CARE TEST ORDERABLE S Performing Organization Address City/[facility]/ZIP Code Phon e Number [address] (ABNORMAL) POCT Glucose (07/05/2017 10:56 PM EST) P athologist Signature POC Glucose 200 (H) 65 - 199 [facility] RYAN mg/dL [facility] Comment: Supplemental ranges: <140 mg/dL before meals <180 mg/dL all other times of the day Specimen Anatomical Collection Method Collection Time Receive d Time (Source) Location / / Volume Laterality Blood specimen 07/05/2017 10:56 7 (specimen) PM EST 10:56 PM EST Daphne Shahid MD POINT OF CARE TEST ORDERABLE S Performing Organization Address City/State/[place] [address] (ABNORMAL) POCT Glucose (07/05/2017 10:05 PM EST) P athologist Signature POC Glucose 225 (H) 65 - 199 [facility]dL [facility] Comment: Supplemental ranges: <140 mg/dL before meals <180 mg/dL all other times of the day Specimen Anatomical Collection Method Collection Time Receive d Time (Source) Location / / Volume Laterality Blood specimen 07/05/2017 10:05 7 (specimen) PM EST 10:05 PM EST Daphne Shahid MD POINT OF CARE TEST ORDERABLE S Performing Organization Address City/[facility]/[place] [address] (ABNORMAL) POCT Glucose (07/05/2017 9:02 PM EST) athologist Signature POC Glucose 301 (H) 65 - 199 [facility] mg/dL [facility] Comment: Supplemental ranges: <140 mg/dL before meals <180 mg/dL all other times of the day Specimen Anatomical Collection Method Collection Time Receive d Time (Source) Location / / Volume Laterality Blood specimen 07/05/2017 9:02 PM 017 9:02 (specimen) EST PM EST Daphne Shahid MD POINT OF CARE TEST ORDERABLE S Performing Organization Address City/State/[place] [address] XR Chest PA or [...] 474 ms MUSE SYSTEM (Bezet) Calculated P [place] 50 degrees MUSE SYSTEM Calculated R [place] -28 degrees MUSE SYSTEM Calculated T [place] 90 degrees MUSE SYSTEM INTERPRETATION Sinus tachycardia [...] (ABNORMAL) Differential, Automated (07/05/2017 8:20 PM EST) [facility] Method Time Signature Neutrophils % 88.4 % [facility] Neutr Abs (ANC) 9.08 (H) 1.70 - [facility] 6.10 [facility] x10(3)/[facility] L LABORATORY Lymphocytes % 7.0 % [facility] Lymphocytes Abs 0.7 (L) 0.9 - 3.2 [facility] x10(3)/[facility] LABORATORY Monocytes % 3.7 % [facility] Monocyte Abs 0.4 0.3 - 0.9 [facility] x10(3)/[facility] LABORATORY Eosinophils % 0.1 % [facility] Eosinophils Abs 0.0 0.0 - 0.4 [facility] x10(3)/[facility] LABORATORY Basophils % 0.2 % [facility] Basophils Abs 0.0 0.0 - 0.1 [facility] x10(3)/[facility] LABORATORY Immature Gran % 0.60 [...] 0.06 (H) 0.00 - 0.04 x10(3)/[facility] LABORATORY Specimen Anatomical Collection Method Collection Time Receive d Time (Source) Location / / Volume Laterality Blood specimen 07/05/2017 8:20 PM 017 8:27 (specimen) EST PM EST Resulting Agency Comment Spec In Lab Daphne Shahid MD HEMATOLOGY ORDERABLES Performing Organization Address City/State/ZIP [place] [address] (ABNORMAL) Hemogram (07/05/2017 8:20 PM EST) Analysis Performed At Patho logist Time Signature WBC 10.3 (H) 4.0 - 9.5 [facility] x10(3)/[facility] LABORATORY RBC 4.64 4.58 - [facility] 5.54 [facility] x10(6)/[facility] LABORATORY Hemoglobin 14.1 13.7 - [facility] 16.5 gm/dL [facility] Hematocrit 40.8 40.5 - [facility] 48.5 % [facility] MCV 87.9 82.9 - [facility] 93.1 [facility] LABORATORY MCH 30.4 27.5 - [facility] 32.1 pg [facility] MCHC 34.6 32.0 - [facility] 35.7 gm/dL [facility] Platelets 204 145 - 357 [facility] x10(3)/[facility] LABORATORY RDWSD 46.1 (H) 36.0 - [facility] 45.0 [facility] LABORATORY RDWCV 14.5 (H) 11.4 - [facility] 13.8 % [facility] LABORATORY MPV 9.7 7.6 - 12.9 [facility] LABORATORY nRBC % Auto 0.0 % [facility] LABORATORY nRBC Abs Auto 0.000 0.000 - [facility] 0.000 [facility] x10(3)/[facility] LABORATORY Specimen Anatomical Collection Method Collection Time Receive d Time (Source) Location / / Volume Laterality Blood specimen 07/05/2017 8:20 PM 017 8:27 (specimen) EST PM EST Resulting Agency Comment Spec In Lab Daphne Shahid MD HEMATOLOGY ORDERABLES Performing Organization Address City/State/ZIP [place] [address] APTT (07/05/2017 8:20 PM EST) P athologist Signature PTT 32 25 - 35 sec [facility] Comment: The recommended therapeutic range for fu ll dose, unfractionated heparin at [facility] is 80 ? 114 seconds. The use [...] Organization Address City/State/ZIP [place] [address] (ABNORMAL) Cardiac Enzymes (LEB/CGP) (07/05/2017 8:20 PM EST) athologist Signature Troponin-T 2.11 (H) 0.00 - [facility] 0.00 ng/mL [facility] Comment: The 99th percentile for Troponin T is le ss than 0.01 ng/mL, any detectable cTnT concentration using this assay should be considered elevated. According to the third universal definit ion of myocardial infarction the following criteria with a clinical prese ntation consistent with acute myocardial ischemia meets the diagnosis for a myocardial infarction ([place]). Detection of a rise and/or fall of [...] additional sample may be indicated. Reference: Third Arbon Definition of Myocardial Infarction. Journal of the [employer] College of Cardiology 2012;60:1581-98 CK, Total 149 0 - 200 unit/L [facility] Specimen Anatomical Collection Method Collection Time Receive d Time (Source) Location / / Volume Laterality Blood specimen 07/05/2017 8:20 PM 017 8:27 (specimen) EST PM EST Resulting Agency Comment Spec In Lab Daphne Shahid MD CHEMISTRY ORDERABLES Performing Organization Address City/State/ZIP Code Phon e Number [address] (ABNORMAL) Magnesium (07/05/2017 8:20 PM EST) P athologist Signature Magnesium 0.68 (L) 0.69 - 1.07 [facility] mmol/L [facility] Specimen Anatomical Collection Method Collection Time Receive d Time (Source) Location / / Volume Laterality Blood specimen 07/05/2017 8:20 PM 017 8:27 (specimen) EST PM EST Resulting Agency Comment Spec In Lab Daphne Shahid MD CHEMISTRY ORDERABLES Performing Organization Address City/[facility]/ZIP Code Phon e Number [address] (ABNORMAL) Basic Metabolic Panel (non-fasting) (07/05/2017 8:20 PM EST) athologist Signature Glucose Lvl 321 (H) 65 - 199 [facility] mg/dL [facility] Comment: Diabetes: >=200 mg/dL plus symp toms BUN 20 10 - 20 mg/dL [facility]ORY Creatinine 1.12 0.80 - 1.50 mg/dL [facility] LABOR[facility]ORY Sodium 139 135 - 145 mmol/L [facility] Potassium 3.8 3.5 - 5.0 mmol/L [facility] [...] Calcium 8.1 (L) 8.5 - 10.5 mg/dL [facility]ORY Estimated GFR >60 >=[address] [facility] Comment: The reported eGFR should be multiplied b y 1.2 for patients. The MDRD is not an appropriate measure o f renal function for patients with body mass extremes or in patients with acute kidney failure. http://[employer].Easycause/DHnkdep http://[employer]/DHMCnkf Specimen Anatomical Collection Method Collection Time Receive d Time (Source) Location / / Volume Laterality Blood specimen 07/05/2017 8:20 PM 017 8:27 (specimen) EST PM EST Resulting Agency Comment Spec In Lab Daphne Shahid MD CHEMISTRY ORDERABLES Performing Organization Address City/State/ZIP Code Phon e Number [address] (ABNORMAL) POCT Glucose (07/05/2017 7:32 PM EST) P athologist Signature POC Glucose 296 (H) 65 - 199 [facility] mg/dL [facility] Comment: Supplemental ranges: <140 mg/dL before meals <180 mg/dL all other times of the day Specimen Anatomical Collection Method Collection Time Receive d Time (Source) Location / / Volume Laterality Blood specimen 07/05/2017 7:32 PM 017 7:32 (specimen) EST PM EST Daphne Shahid MD POINT OF CARE TEST ORDERABLE S Performing Organization Address City/State/[place] [address] CARDIAC CATHETERIZATION (07/05/2017 6:47 PM EST) Specimen (Source) Anatomical Location Collection Method / Collectio n Time Received Time / Laterality Volume Narrative CARDIOMAC SYSTEM - 07/05/2017 7:27 PM ES T ?[facility] ? Cardiac Cathete rization/Intervention Report ? Patient Name: Gregory Hoang ? Procedure Date: 07/05/2017 ? A #: [id number] ? Primary Physician: Clarisa, Jet T ? Case #: [id number] ? File Name: [id number] ? Catheterization Order Number: [id number] ? [facility] ? Final Report [place], [place] ? Patient Name: ? Gregory Natalya ?ID#: ?[id number] ? : ?1945 ? Procedure Date: ? June 11 17 ?Case #: ? [id number] ? Room: ? 6 ? Case Physician: [...] presented with: non -STEMI (w/i 7 days). [place] ?[employer] angina c lass was IV. 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 ? Jet Mckenna M.D. ? Electronically Signed by: Jet bunch M.D. ? Report Finalized: 07/05/2017 ??19:23 ? Report Last Ammended: 10/26/2017 ??10:29 ? Procedure Note Jet Mckenna MD - 10/26/2017Formatt ing of this note might be different from the original. [facility] Cardiac Catheterization/Intervention Re port Patient Name: Gregory Hoang Procedure Date: 07/05/2017 A #: [id number] Primary Physician: Jet Mckenna Case #: [id number] File Name: [id number] Catheterization Order Number: [id number] [facility] Final Report [place], [place] Patient Name: Gregory Hoang ID#: [id number] : 1945 Procedure Date: July 05, [...] presented with: non-STEMI ( w/i 7 days). [place] [employer] angina class was IV. 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 Jet Mckenna M.D. Electronically Signed by: [...] Mccollum ? (Age): 1945(72y) Med Rec#: ? [id number] ?Sex: ?M ? Site Loc: ? [facility] ?Ht / Wt: ??173(cm)/86(kg) Pt. Loc: ?CCU ? BSA: ?2 Study Date: ?? 07/05/2017 ?Pt. Type: Inpatient Tape: ? Referring: Daphne Shahid ([id number]) Referring: MANDA ALCANTAR Reading: Blade Preston ([id number]) Radio Frequency Design Engineer: Dayami Paula BA, [facility] [...] E-wave Vmax ?0.8 ?m/sec ? MV deceleration [id number] ?msec ? MV A-wave Vmax ?0.8 ?m/sec [...] ? Mid-Inferior ?Akinetic ? Mid-Inferoseptal ?Hypokinetic ? Mikado-Septal ? Akinetic ? Mikado-Anterior ? Hypokinetic ? Mikado-Lateral ?Hypokinetic ? Mikado-Inferior ? Akinetic ? Mikado-Tip ?Akinetic ? This report has been electronically sign ed by: _ Blade Preston MD ? 07/06/2017 08 :53:15 Images reviewed and interpretation verif ied [facility] Cardiac Ultrasound Laboratory Procedure Note Blade Preston MD - 07/06/2017Formatt ing of this note might be different from the original. Procedure: Transthoracic Echocardiogram Patient: NATALYA MCBRIDE(Age): [birth year]72y) Med Rec#: [id number] Sex: M Site Loc: [facility] Ht / Wt: 173(cm)/86(kg) Pt. Loc: CCU BSA: 2 Study Date: 07/05/2017 Pt. Type: Inpatie nt Tape: Referring: Daphne Shahid ([id number]) Referring: MANDA ALCANTAR Reading: Blade Preston ([id number]) Radio Frequency Design Engineer: Dayami Paula BA, [facility] [...] MV E-wave Vmax 0.8 m/sec MV deceleration [id number] msec MV A-wave Vmax 0.8 m/sec MV [...] Hypokinetic Mid-Posterolateral Hypokinetic Mid-Inferior Akinetic Mid-Inferoseptal Hypokinetic Mikado-Septal Akinetic Mikado-Anterior Hypokinetic Mikado-Lateral Hypokinetic Mikado-Inferior Akinetic Mikado-Tip Akinetic This report has been electronically sign ed by: _ Blade Preston MD 07/06/2017 08:53:15 Images reviewed and interpretation verif ied [facility] Cardiac Ultrasound Laboratory Daphne Shahid MD ECHO ORDERABLES Performing Organization Address City/State/ZIP Code Phon e Number [facility] Differential, Automated (07/05/2017 4:55 PM EST) P athologist Signature Neutrophils % 77.0 % [facility] Neutr Abs (ANC) 5.26 1.70 - [facility] 6.10 [facility] x10(3)/[facility] LABORATORY Lymphocytes % 13.3 % [facility] Lymphocytes Abs 0.9 0.9 - 3.2 [facility] x10(3)/[facility] LABORATORY Monocytes % 8.2 % [facility]ORY Monocyte Abs 0.6 0.3 - 0.9 [facility] x10(3)/[facility] LABORATORY Eosinophils % 0.7 % [facility]ORY Eosinophils Abs 0.0 0.0 - 0.4 [facility] x10(3)/[facility] LABORATORY Basophils % 0.4 % [facility]ORY Basophils Abs 0.0 0.0 - 0.1 [facility] x10(3)/[facility] [...] Melisa Gran Abs 0.03 0.00 - 0.04 x10(3)/[facility] MAR Y [facility] LABORATORY Specimen Anatomical Collection Method Collection Time Receive d Time (Source) Location / / Volume Laterality Blood specimen 07/05/2017 4:55 PM 017 5:24 (specimen) EST PM EST Resulting Agency Comment Spec In Lab Daphne Shahid MD HEMATOLOGY ORDERABLES Performing Organization Address City/State/ZIP [place] [address] (ABNORMAL) Hemogram (07/05/2017 4:55 PM EST) Analysis Performed At Patho logist Time Signature WBC 6.8 4.0 - 9.5 [facility] x10(3)/[facility] LABORATORY RBC 4.67 4.58 - [facility] 5.54 [facility] x10(6)/[facility] LABORATORY Hemoglobin 14.0 13.7 - [facility] 16.5 gm/dL [facility]OR[facility]ORY Hematocrit 41.0 40.5 - [facility] 48.5 % [facility] MCV 87.8 82.9 - [facility] 93.1 fL [facility]ORAT[facility] MCH 30.0 27.5 - [facility] 32.1 pg [facility] MCHC 34.1 32.0 - [place] DAVIS 35.7 gm/dL [facility] Platelets 197 145 - 357 [place] DAVIS x10(3)/[facility] LABORATORY RDWSD 46.4 (H) 36.0 - [place] DAVIS 45.0 [facility] LABORATORY RDWCV 14.5 (H) 11.4 - [place] DAVIS 13.8 % [facility]ORATORY MPV 9.7 7.6 - 12.9 [place] DAVIS [facility] LABORATORY nRBC % Auto 0.0 % [facility] nRBC Abs Auto 0.000 0.000 - [place] DAVIS 0.000 [facility] x10(3)/[facility] LABORATORY Specimen Anatomical Collection Method Collection Time Receive d Time (Source) Location / / Volume Laterality Blood specimen 07/05/2017 4:55 PM 017 5:24 (specimen) EST PM EST Resulting Agency Comment Spec In Lab Daphne Shahid MD HEMATOLOGY ORDERABLES Performing Organization Address City/State/ZIP Code Phon e Number [facility] [place] [address] (ABNORMAL) Cardiac Enzymes (LEB/CGP) (07/05/2017 4:55 PM EST) P athologist Signature Troponin-T 1.69 (H) 0.00 - [place] DAV[place] 0.00 ng/mL [facility] Comment: The 99th percentile for Troponin T is le ss than 0.01 ng/mL, any detectable cTnT concentration using this assay should be considered elevated. According to the third universal definit ion of myocardial infarction the following criteria with a clinical prese ntation consistent with acute myocardial ischemia meets the diagnosis for a myocardial infarction ([place]). Detection of a rise and/or fall of [...] additional sample may be indicated. Reference: Third Arbon Definition of Myocardial Infarction. Journal of the [employer] College of Cardiology 2012;60:1581-98 CK, Total 191 0 - 200 unit/L [facility]ORATORY Specimen Anatomical Collection Method Collection Time Receive d Time (Source) Location / / Volume Laterality Blood specimen 07/05/2017 4:55 PM 017 5:56 (specimen) EST PM EST Resulting Agency Comment Spec In Lab Daphne Shahid MD CHEMISTRY ORDERABLES Performing Organization Address City/[facility] [place] [address] (ABNORMAL) pro-Brain Natriuretic Peptide (07/05/2017 4:55 PM EST) P athologist Signature ProBNP 1,598 (H) <=125 [facility] pg/mL [facility] Specimen Anatomical Collection Method Collection Time Receive d Time (Source) Location / / Volume Laterality Blood specimen 07/05/2017 4:55 PM 017 5:24 (specimen) EST PM EST Resulting Agency Comment Spec In Lab Daphne Shahid MD CHEMISTRY ORDERABLES Performing Organization Address City/[facility] [place] [address] Magnesium (07/05/2017 4:55 PM EST) P athologist Signature Magnesium 0.78 0.69 - 1.07 [facility] mmol/L [facility] Specimen Anatomical Collection Method Collection Time Receive d Time (Source) Location / / Volume Laterality Blood specimen 07/05/2017 4:55 PM 017 5:24 (specimen) EST PM EST Resulting Agency Comment Spec In Lab Daphne Shahid MD CHEMISTRY ORDERABLES Performing Organization Address City/[facility]/ZIP [facility] [place] [address] (ABNORMAL) Basic Metabolic Panel (non-fasting) (07/05/2017 4:55 PM EST) athologist Signature Glucose Lvl 230 (H) 65 - 199 [facility] mg/dL [facility] Comment: Diabetes: >=200 mg/dL plus symp toms BUN 19 10 - 20 mg/dL [facility] Creatinine 1.04 0.80 - 1.50 mg/dL [facility] LABOR[facility]ORY Sodium 142 135 - 145 mmol/L [facility] Potassium 4.0 3.5 - 5.0 mmol/L [facility] LABORATORY Calcium 8.5 8.5 - 10.5 mg/dL [facility] Estimated GFR >60 >=60 [facility] Comment: The reported eGFR should be multiplied b y 1.2 for patients. The MDRD is not an appropriate measure o f renal function for patients with body mass extremes or in patients with acute kidney failure. http://[employer].Easycause/DHnkdep http://[employer]/DHMCnkf Specimen Anatomical Collection Method Collection Time Receive d Time (Source) Location / / Volume Laterality Blood specimen 07/05/2017 4:55 PM 017 5:24 (specimen) EST PM EST Resulting Agency Comment Spec In Lab Daphne Shahid MD CHEMISTRY ORDERABLES Performing Organization Address City/State/ZIP [place] [address] (ABNORMAL) APTT (07/05/2017 4:55 PM EST) athologist Signature PTT 41 (H) 25 - 35 sec [facility] Comment: The recommended therapeutic range for fu ll dose, unfractionated heparin at [facility] is 80 ? 114 seconds. The use [...] Shahid MD HEMATOLOGY ORDERABLES Performing Organization Address City/[facility]/ZIP Code Phon e Number [address] (ABNORMAL) POCT Glucose (07/05/2017 4:53 PM EST) P athologist Signature POC Glucose 208 (H) 65 - 199 [facility] mg/dL [facility] Comment: Supplemental ranges: <140 mg/dL before meals <180 mg/dL all other times of the day Specimen Anatomical Collection Method Collection Time Receive d Time (Source) Location / / Volume Laterality Blood specimen 07/05/2017 4:53 PM 017 4:53 (specimen) EST PM EST Daphne Shahid MD POINT OF CARE TEST ORDERABLE S Performing Organization Address City/[facility] [place] [address] EKG 12 Lead (07/05/2017 4:32 PM EST) Component Value Ref Range Test Analysis Performed Pathologis t Method Time At Signature Ventricular rate 97 BPM MUSE SYSTEM Atrial Rate 97 BPM MUSE SYSTEM P-R Interval 148 ms MUSE SYSTEM QRS Duration 96 ms MUSE SYSTEM Q-T Interval 364 ms MUSE SYSTEM QTC Calculated 462 ms MUSE SYSTEM (Bezet) Calculated P [place] 48 degrees MUSE SYSTEM Calculated R [place] -33 degrees MUSE SYSTEM Calculated T [place] 98 degrees MUSE SYSTEM INTERPRETATION Normal sinus [...] Organization Address City/State/ZIP Code Phon e Number [email or web address] documented in this encounter Visit Diagnoses Diagnosis STEMI (ST elevation myocardial infarctio n) - Primary Acute myocardial infarction, unspecified site, episode of care unspecified Non-ST elevation myocardial infarction ( NSTEMI) Acute myocardial infarction, subendocard ial infarction, episode of care unspecified S/P CABG x 3 Postsurgical aortocoronary bypass status ASHD (arteriosclerotic heart disease) Coronary atherosclerosis of unspecified type of vessel, [place] or graft Cardiomyopathy, ischemic Other specified forms [...] dose on Wed07/07/17 at 2100, Until Discontinued, [place] teeth, Routine Given 07/08/2017 10:06 PM EST [...] or norepinephrine is ineffective. Call pager # [phone] if initiated. Rate/Dose Change 07/08/2017 7:01 PM [...] if phenyleprine and/or vasopressin ineffective.Call pager # [phone] if initiated., Routine Rate/Dose Change 07/09/2017 1:24 [...] 2.0 L/min/M2. Maximum volume 2 L. Call dye house vat worker for additional fluid orders: pager #[phone]. Rate/Dose Verify 07/08/2017 4:00 AM EST 100 [...]
Routine documented in this encounter Care Teams Block Cleaner Relationship Specialty Start Date End Date Lovely Vicente MD PCP - General 04/16/[address] [place] [address] [address] [place] [address] documented as of this encounter
--- OUTSIDE RECORDS SUMMARY | 2022-03-04 14:57 | XMS_ITS | Encounter Summary ---
:1945 Author Organization [facility] [address] Care Team Providers Name Role Phone Lovely Vicente MD Primary Care Provider Encounter Details Date Type Department Care Team Description 07/08/2017 Orders Only Cardiology [facility] [place] [id number] Social History Tobacco Use Types Packs/Day [...] Vitaliy Nobles MD [facility] [address] [place], [place] [address] (Wo rk) 06/10/2022 Office Visit Dermatology Laura Scherer MD [facility] [address] [place], [place] [address] (Wo rk) documented as of [...] Mccollum ? (Age): 1945(72y) Med Rec#: ? [id number] ?Sex: ?M ? Site Loc: ? Ht / Wt: ??(cm)/ (kg) ? Pt. Loc: ? Study Date: ?? 07/07/2017 ?Pt. Type: Tape: ? Referring: Yuan Retana Reading: Yifan Perez MD ([id number]) Performing: Yifan Perez MD ([id number]) Diagnosis: SUMMARY: 1. [facility] [...] urgitation. Mitral Valve: ? The mitral valve yona flets appear normal. ?The mitral valve leaflets [...] ? Mid-Inferior ?Hypokinetic ? Mid-Inferoseptal ?Hypokinetic ? Kyle-Septal ? Hypokinetic ? Kyle-Anterior ? Hypokinetic ? Kyle-Lateral ?Hypokinetic ? Kyle-Inferior ? Hypokinetic ? Kyle-Tip ?Not Seen ? This report has been electronically sign ed by: _ Yifan Perez MD ? 07/08/2017 12 :25:18 Images reviewed and interpretation [facility] Cardiac Ultrasound Laboratory Procedure Note Yifan Perez MD - 07/08/2017Formatt ing of this note might be different from the original. Procedure: Transesophageal Echocardiogra m Patient: NATALYA MCBRIDE(Age): [birth year]72y) Med Rec#: [id number] Sex: M Site Loc: Ht / Wt: (cm)/ (kg) Pt. Loc: Study Date: 07/07/2017 Pt. Type: Tape: Referring: Yuan Retana Reading: Yifan Perez MD ([id number]) Performing: Yifan Perez MD ([id number]) Diagnosis: SUMMARY: 1. [facility] for the [...] Hypokinetic Mid-Posterolateral Hypokinetic Mid-Inferior Hypokinetic Mid-Inferoseptal Hypokinetic Kyle-Septal Hypokinetic Kyle-Anterior Hypokinetic Kyle-Lateral Hypokinetic Kyle-Inferior Hypokinetic Kyle-Tip Not Seen This report has been electronically sign ed by: _ Yifan Perez MD 07/08/2017 12:25:18 Images reviewed and interpretation verif ied [facility] Cardiac Ultrasound Laboratory Unknown ECHO ORDERABLES Performing Organization Address City/State/ZIP Code Phon e Number [facility] documented in this encounter Visit Diagnoses Not on filedocumented in this encounter Care Teams Wound Care Specialist Relationship Specialty Start Date End Date Lovely Vicente MD PCP - General 04/16/[address] [place] [address] documented as of this encounter
--- OUTSIDE RECORDS SUMMARY | 2022-03-04 14:58 | XMS_ITS | Encounter Summary ---
:1945 Author Organization [facility] Address [facility] [place] [address] Care Team Providers Name Role Phone Lovely Vicente MD Primary Care Provider Reason for Visit Auth/Cert Specialty Diagnoses / Procedures Referred By Contact Refer red To Contact Diagnoses STEMI (ST elevation myocardial infarction) NSTEMI STEMI Procedures CARDIAC CATHETERIZATION NAYE IPI Referral ID Status Reason Start Date Expiration Date Visits Requ ested Visits Authorized [id number] 1 1 Encounter Details Date Type Department Care Team Description 07/07/2017 Surgery Main Operating Room Yuan Webber, @ CABG, USING ARTERIAL Barbara Ocampo MD GRAFT;SINGLE ARTERIAL Hospital [facility] GRAFT (WRVU 33.75) [facility] [place] [address] SURGERY [phone] [place], [place] [address] (Wo rk) Social History Tobacco [...] in this encounter Discharge Summaries Martha Teague, RELIABILITY MANAGER - 07/14/2017 9:38 AM EST Inpatient - Discharge Summary Patient Name: Gregory Hoang Patient Age: 72 y.o. Birthdate: 1945 Language: Mongolian Race: White Ethnicity: Not nor Admit Date: [...] , @ 1:20p Patient to follow-up with Head Teller/heart failure team in one week. An appointment will be made for you. You may call [phone] Patient to follow-up with Cardiac Surgery, Dr. Yuan Webber, in ~ 4 weeks with CXR, EKG. Inpatient Provider Contact Information: [facility] Section of Cardiac Surgery [facility] [address] FAX [phone] Discharge Diagnoses (Hospital Problems) Primary Diagnoses: CAD [...] SETUP performed by Manny Mcknight MD at [facility] OR ??? PRO CABG, ARTERIAL, SINGLE N/A 07/07/2017 @CABG, USING ARTERIAL GRAFT;SINGLE ARTERIAL GRAFT (WRVU 33.75) performed by Yuan Webber MD at [facility] OR ??? PRO CABG, ARTERY-VEIN, TWO N/A 07/07/2017 @CABG, TWO VENOUS GRAFTS & ARTERIAL GRAFT (WRVU 7.93) performed by Yuan Webber MD at [facility] OR ??? PRO COLONOSCOPY, REMV LESN, SNARE 01/16/2014 COLONOSCOPY, POLYPECTOMY, REMOVAL LESION BY SNARE performed by Nohemi Jaimes MD at [facility] ENDOSCOPY ??? PRO ENDOSCOPY W/VIDEO-ASST VEIN HARVEST, CABG Right 07/07/2017 ENDOSCOPIC HARVEST VEIN(S) FOR CABG (WRVU 0.31) performed by Yuan Webber MD at [facility] OR ??? PRO THYROIDECTOMY 03/28/2013 THYROIDECTOMY, TOTAL OR COMPLETE performed by Manny Mcknight MD at [facility] OR Prior To Admission Medications Prescriptions Prior to Admission Medication Sig Dispense Refill Last Dose ??? levothyroxine (SYNTHROID) 175 mcg Tablet Take 1 tablet by mouth daily. 90 tablet 3 07/05/2017 [id number] ??? ascorbic acid, vitamin C, (VITAMIN C) [...] Hospital Course: Gregory Hoang was admitted to [facility] on 07/05/2017 via the Cardiology Service. During his hospital course, he was taken emergently to the mechanical shop laborer for an ongoing STEMI. An IABP [...] not take or discontinue any prescription or rhsh-vuy-hhcwbgw medications without asking your doctor or pharmacist [...] day to have your insulin doses adjusted. [facility] Endocrine clinic office Discharge Instructions: Call your doctor if: You have a fever of greater than 101 degrees, shaking chills, if you develop redness or drainage from your incision sites, or if you have questions. Please call your surgeon's office if you have any discharge or drainage from your chest incision. Your surgeon, Dr. Yuan Webber and/or the Cardiac Surgery Physician Fast Food Assistant Restaurant Manager Team may be reached at . [...] Dr. Yuan Webber. You may use a [place] Track or treadmill but avoid any pulling [...] friends, go to a movie, go to anabaptism, etc. Heavy activities: No hunting, skiing, jogging, snow shoveling, snowmobiling, lawn mowing, swimming, golf or tennis until after your return appointment with the surgeon. Do not ride motorcycles, [employer]'s tractors or horses. Avoid the use of [...] should resume a low fat, low cholesterol, [place] Heart Association Diet/Diabetic diet. Driving: No driving [...] , @ 1:20p Patient to follow-up with Head Teller/heart failure team in one week. Appointment will be made for you. You may call [phone] Patient to follow-up with Cardiac Surgery, Dr. Yuan Webber, in ~ 4 weeks with CXR, EKG. Cardiac Rehabilitation: Gregory Hoang was seen today regarding participation in the outpatient Phase 2 Cardiac Rehabilitation at [facility]. The patient agrees to a referral to this program. The referral will be sent at discharge and the patient should be contacted by the Program within 1- 2 weeks from discharge. ?? Future Appointments and Orders Future Appointments Provider Department Dept Phone 09/07/2017 3:00 PM LAB, THREE L Lab 3L [facility] [phone] 09/07/2017 4:00 PM Luz Prescott MD Endocrinology at [facility] [phone] Future Orders Complete By Expires EKG 12 Lead [EKG1 Custom] 08/14/2017 02/13/2018 Process Instructions: Scheduling Instructions: Questions: Which DH location will this be performed?: [facility] Is a rhythm strip needed?: No If EKG Reason is Pre-op Evaluation, indicate diagnosis for surgery.: XR Chest PA & Lateral (Generic) [74627 [id number] Custom] 08/14/2017 02/13/2018 Process Instructions: Scheduling Instructions: Questions: Where will study be performed?: [facility] Portable exam?: Reason for exam and clinical history: CABG x 3 Other pertinent information: Stat read required?: Date of injury if applicable: Requested Time: Referral to Cardiac Rehab [BRR306 Custom] As directed Process Instructions: If no progress note charted, please enter Clinical details in comments. Scheduling Instructions: Questions: My question or request is: s/p CABG. Cardiac rehab at [facility] Referral to Home Health - at DISCHARGE [FLC4603 CPT(R)] As directed Process Instructions: Scheduling Instructions: Comments: DOCUMENTATION FOR VNA SERVICES (INCLUDING THOSE PATIENTS WITH MEDICARE COVERAGE REQUIRING HOME VNA SERVICES AND/OR HOSPICE SERVICES) PATIENT'S LOCATION: Gregory Hoang [address] [place] [address] [place] [phone] (home) Telephone Information: Nutrition Associate's Name: self In discussion with the attending physician, it is certified that this patient is under their care and that they, or a Nurse Practitioner, or Physician Fast Food Assistant Restaurant Manager who is working directly with them, [...] HEALTH AGENCY: [facility] ([facility] [place] [facility] in [place]) PHONE: [phone] FAX: [phone] RN orders: Cardiopulmonary assessment, incisional assessment, assess vital signs, assessment of rehab progress, medication management and effectiveness, home safety evaluation. Please draw INR if indicated and send result to:Dr Vicente [phone] PT ORDERS: Continue rehab for endurance, gait stability and strength with mobility and transfers. Home safety evaluation. Home exercise program if appropriate. Start of Care Date:24-48 hours after discharge SPECIAL INSTRUCTIONS: For any follow up questions, needs, or issues please call the Cardiac Surgery Office at [phone] FOR MEDICARE ONLY: (please delete this section [...] noted. Questions: Agency name and contact information: [facility] Patient location post discharge: home What services are requested: Registered Nurse Physical Therapy Start date: Responsible MD post discharge contact info: PCP Arrangements for VNA/home care: As above. VN RN OR PCP TO PLEASE REMOVE CHEST TUBE SUTURES ON OR AFTER 07/17/2017 Signed: Martha Teague APRN [facility] Section of Cardiac Surgery [facility] [address] FAX [phone] Date: 07/14/2017 CC: MD Ivania Cr Betsy, PA [address] [place] [phone] documented in this encounter Discharge Instructions Discharge [...] day to have your insulin doses adjusted. [facility] Endocrine clinic office Patient InstructionsStMartha [...] not take or discontinue any prescription or uull-qmq-ahnzdfl medications without asking your doctor or pharmacist [...] day to have your insulin doses adjusted. [facility] Endocrine clinic office ? Discharge [...] Yuan Webber and/or the Cardiac Surgery Physician Fast Food Assistant Restaurant Manager Team may be reached at . [...] Dr. Yuan Webber. You may use a [place] Track or treadmill but avoid any pulling [...] friends, go to a movie, go to anabaptism, etc. ?? Heavy activities: No hunting, skiing, jogging, snow shoveling, snowmobiling, lawn mowing, swimming, golf or tennis until after your return appointment with the surgeon. Do not ride motorcycles, [employer]'s tractors or horses. Avoid the use of [...] should resume a low fat, low cholesterol, [place] Heart Association Diet/Diabetic diet. ?? Driving: No [...] @ 1:20p ?? Patient to follow-up with Head Teller/heart failure team in one week. An appointment has been made for you, you can call [phone] ?? Patient to follow-up with Cardiac Surgery, Dr. Yuan Webber, in ~ 4 weeks with CXR, EKG. ? Cardiac Rehabilitation: Gregory Hoang??was seen today regarding participation in the outpatient Phase 2 Cardiac Rehabilitation at [facility]. ?? The patient agrees to a referral to this program.? The referral will be sent at discharge and the patient should be contacted by the Program within 1- 2 weeks from discharge. ? Future Appointments and Orders Future Appointments Provider Department Dept Phone ?? 09/07/2017 3:00 PM LAB, THREE L Lab 3L [facility] [phone] ?? 09/07/2017 4:00 PM Luz Prescott MD Endocrinology at [facility] [phone] Future Orders Complete By Expires ?? EKG 12 Lead [EKG1 Custom] 08/14/2017 02/13/2018 ?? Process Instructions: ? Scheduling Instructions: ? Questions: ? Which location will this be performed?: [facility] ?? Is a rhythm strip needed?: No ?? If EKG Reason is Pre-op Evaluation, indicate diagnosis for surgery.: ?? XR Chest PA & Lateral (Generic) [[id number] Custom] 08/14/2017 02/13/2018 ?? Process Instructions: ? Scheduling Instructions: ? Questions: ? Where will study be performed?: [facility] ?? Portable exam?: ?? Reason for exam and clinical history: CABG x 3 ?? Other pertinent information: ?? Stat read required?: ?? Date of injury if applicable: ?? Requested Time: ?? Referral to Cardiac Rehab [TQI902 Custom] As directed ? Process Instructions: ?? If no progress note charted, please enter Clinical details in comments. ?? Scheduling Instructions: ? Questions: ? My question or request is: s/p CABG. Cardiac rehab at [facility] ? Arrangements for VNA/home care: As above. [...] RN - 07/14/2017 2:34 PM EST The patient/automobile rental representative has been provided a list of Home Health Agencies/DME vendors which serve their preferred geographic area. A letter describing our affiliations was reviewed with them and theywere educated about their right to choose where referrals are placed. Patient requests referral to [facility]. PHONE: [phone] FAX: [phone] Expected date of discharge: 07/14 Referral routed to the Economics Faculty Member for matching with agency/vendor and to provide [...] day to have your insulin doses adjusted. [facility] Endocrine clinic office Kathie Carrera APRN [facility] Endocrinology Diabetes Management Pager [phone] minutes of this 35 minute visit was spent with the patient in counseling on diabetes and treatment plan, reviewing all glucose and insulin data as well as relevant laboratory results with the patient, and coordination of care on the inpatient unit including nursing and primary team. Zulma Power RN - 07/14/2017 10:30 AM EST The patient/automobile rental representative has been provided a list of Home Health Agencies/DME vendors which serve their preferred geographic area. A letter describing our affiliations was reviewed with them and theywere educated about their right to choose where referrals are placed. Patient requests referral to : [facility] ([facility] [place] [facility] in [place]) PHONE: [phone] FAX: [phone]. Expected date of discharge: 07/14/17 Referral routed to the Economics Faculty Member for matching with agency/vendor and to provide [...] hours. If BG remains greater than 240, poyhsb29 units (no more than three times) &??call [...] #6 s/p CABG X3. [facility]SB[facility] 80 at [place], reports no symptoms but did drink some [...] Will continue to follow Katerin Azul APRN [facility] Endocrinology Diabetes Management Pager [phone] minutes of this 25 minute visit [...] of infiltration/extravasation Discussed plan of care with GROOMING ASSISTANT and RN. Elevate exrtemity and apply intermittent Warm compresses. Name of MD contacted Dr. Shaw Bronw 07/13/2017 @ 0639 Name of RN contacted Ale Rangel RN Name of Pharmacist if consulted NA Name of Plastics MD ( if consulted) NA (Mandatory photo for infiltrations/ extravasations scoring a stage 2 or greater, but recommended forstage 1)( include measuring tape and identifier in the photo) INSTRUMENT LENS INSPECTOR CARING FOR THIS PATIENT WILL CONTINUE TO [...] measuring tape and identifier in the photo) INSTRUMENT LENS INSPECTOR CARING FOR THIS PATIENT WILL CONTINUE TO [...] regard to both infiltrates addressed by this life underwriter.All of MrMadiha Hoang's responses were entirely appropriate. Images of infiltrates attached here. L Martha Teague, RELIABILITY MANAGER - 07/13/2017 8:01 AM EST Cardiac Surgery Progress Note: ID: [id number] 72 year old male POD#6 s/p CABGx3 [...] discharge. ?? I have met with the patient/automobile rental representative to discuss discharge planning needs. I have provided the [facility], Office of Care Management letter from the Information Assistant pertaining to rehab referrals. I have also provided a letter describing our affiliations within the [facility] and educated them about their right to choose where referrals are placed. ?? I reviewed the different levels of rehab including SNF, swing, acute and LTAC with the patient/automobile rental representative. ?? The patient/automobile rental representative has been provided a list of facilities within their preferred geographic area. ?? I have requested that the patient/automobile rental representative provide at least three choices for referral. ?? The patient/automobile rental representative have requested referrals to: ?? [facility]. [facility] ?? 2. [facility] ?? 3. More to be entered ?? Expected date of discharge: 07/14 Note routed to Economics Faculty Member who will communicate referrals to facilities and [...] hours. If BG remains greater than 240, [id number] units (no more than three times) & [...] hours. If BG remains greater than 240, jaxkqd61 units (no more than three times) & call for new basal insulin orders. ??If less than 240 after two hours, give no insulin and resume prior schedule. Will continue to follow Katerin Azul APRN [facility] Endocrinology Diabetes Management Pager [phone] 20 minutes of this 35 minute visit was spent with the patient in counseling on diabetes and treatment plan, reviewing all glucose and insulin data as well as relevant laboratory results with the patient, and coordination of care on the inpatient unit including nursing and primary team. Makayla Stevenson APRN - 07/12/2017 9:52 AM EST Cardiac Surgery Progress Note: ID: [id number] 72 year old male POD#5 s/p CABGx3 [...] 07/11/2017 7:18 PM EST Patient arrived from [facility]. VSS. MSI dressing pulled off [...] hours. If BG remains greater than 240, txycej35 units (no more than three times) & [...] AM EST Cardiac Surgery Progress Note: ID: [id number] 72 year old male POD#4 s/p CABGx3 [...] AM EST Cardiac Surgery Progress Note: ID: [id number] 72 year old male POD#3 s/p CABGx3 [...] Gas) No results found for: PHART, PO2ART, PJC2OHS Assessment/Plan: 72 year old male POD#3 s/p [...] Mami Thao - 07/09/2017 6:29 PM EST Abatement Worker Encounter Note Patient Name: Gregory Hoang : [id number] MR#: [id number] Admit Date: 07/05/2017 4:20 PM Hospital Day 4 days Narrative: Patient was sitting in chair, hugging heart pillow, opened his eyes, nodding to come into room Assessment: Patient was sleepy. Intervention and Outcome: Introduced biomedical equipment support specialist services and patient reached his hand out in appreciation. Follow-up: Abatement Worker remains available for support. Time in Direct [...] 07/09/2017 10:45 AM EST Report given to licensed staff mft to cover care Maddison Cee PA - 07/09/2017 9:00 AM EST Cardiac Surgery Progress Note: ID: [id number] 72 year old male POD#2 s/p CABGx3 [...] completed shifts: In: 7977.4 [I.V.:7477.4; Other:500] Out: 2225 [Urine:3000; Other:615] I- 4 L O- 2.7 [...] Attending Surgeon on rounds. Signed: STEPHANIE Iqbal [facility] Section of Cardiac Surgery Date: 07/09/2017 [...] when IABP d/c'ed. Gretchen Carolina, PT Pager [phone] Maddison Cee PA - 07/08/2017 11:27 AM EST Cardiac Surgery Progress Note: ID: [id number] 72 year old male POD#1 s/p CABGx3 [...] Attending Surgeon on rounds. Signed: STEPHANIE Iqbal [facility] Section of Cardiac Surgery Date: 07/08/2017 [...] in place in R femoral. No hematoma. OTHER SALES SUPPORT WORKER- Intact Psych- Anxious Skin- Dry, no peripheral [...] intact. IABP in place in R femoral. OTHER SALES SUPPORT WORKER- Intact Psych- Anxious Skin- Dry, no peripheral [...] BP and blood sugars orders written. Daphne Shhaid MD - 07/06/2017 5:17 AM EST Inpatient [...] pending CABG - hold metformin - f[facility]u [facility] ?? #Home Meds - continue [...] note for details. DAPHNE SHAHID MD Pager [phone] Jet Mckenna MD - 07/05/2017 6:48 PM EST Preliminary Cardiac Catheterization Procedure Note: Procedure(s) performed: Left heart cath, IABP insertion Access: Right CARPENTER LABOR SUPERVISOR-->8fr IABP A time-out was conducted prior to [...] effect. Heparin gtt maintained. Pt transferred to mechanical shop laborer. documented in this encounter H&P Notes Daphne Shahid MD - 07/05/2017 6:08 PM EST CARDIOLOGY HISTORY & PHYSICAL EXAM Date of Admission: 07/05/2017 ( Hospital Day 0 days ) Responsible Attending: Daphne Shahid MD PCP: Lovely Vicente MD PCP#: [phone] Patient Active Problem List Diagnosis Code ??? [...] load with heparin drip and transferred to [facility]. While there, continued sob, question of chest pain. Stat TTE showing WMA diffusely and EF around 20%. No significant valvular disease. Taken to the mechanical shop laborer urgently for ongoing STEMI. [facility] Labs: INR 1.0 WBC 5.88 Hgb 12.9 [...] monitor I/O - s/p lasix in the mechanical shop laborer, redose to aim net neg 1L [...] Medicine, PGY-2 Cardiology S1, Team Pager # [phone] CARDIOLOGY ATTENDING NOTE Patient: Gregory Hoang Date [...] amenable for PCI. DAPHNE SHAHID MD Pager [phone] documented in this encounter Miscellaneous Notes Consult Note - Daphne Shahid MD - 07/14/2017 11:46 AM EST Heart Failure Service Inpatient Consult Note Gregory Hoang Date of : 1945 Age: 72 y.o. Today's date: 07/14/17 PCP: Lovely Vicente MD AGRICULTURE INSPECTOR: None Place of Service: C451-A Reason for [...] SETUP performed by Manny Mcknight MD at [facility] OR ??? PRO CABG, ARTERIAL, SINGLE N/A 07/07/2017 @CABG, USING ARTERIAL GRAFT;SINGLE ARTERIAL GRAFT (WRVU 33.75) performed by Yuan Webber MD at [facility] OR ??? PRO CABG, ARTERY-VEIN, TWO N/A 07/07/2017 @CABG, TWO VENOUS GRAFTS & ARTERIAL GRAFT (WRVU 7.93) performed by Yuan Webber MD at [facility] OR ??? PRO COLONOSCOPY, REMV LESN, SNARE 01/16/2014 COLONOSCOPY, POLYPECTOMY, REMOVAL LESION BY SNARE performed by Nohemi Jaimes MD at [facility] ENDOSCOPY ??? PRO ENDOSCOPY W/VIDEO-ASST VEIN HARVEST, CABG Right 07/07/2017 ENDOSCOPIC HARVEST VEIN(S) FOR CABG (WRVU 0.31) performed by Yuan Webber MD at [facility] OR ??? PRO THYROIDECTOMY 03/28/2013 THYROIDECTOMY, TOTAL OR COMPLETE performed by Manny Mcknight MD at [facility] MAIN OR Outpt Meds: Current Outpatient [...] following studies: EKG 07/14/17: NSR 75 bpm, DRIVER TRAINER anterior infarct, LAD CXR 07/11/17: FINDINGS: Sternotomy wires. The patient has been extubated, left chest tube removed, and [place] catheter removed since the 07/07/2017 study. Atelectasis [...] was discussed with Zehra. Jaden Kelley MD Change Release Manager Pager [phone] CARDIOLOGY ATTENDING NOTE Patient: Gregory Hoang Date [...] heart failure clinic. DAPHNE SHAHID MD Pager [phone] Plan of Care - Alden Chavarria, PRACTICING MD ANESTHESIOLOGIST - 07/14/2017 11:35 AM EST Problem: Patient [...] Disposition: home with assist Alden Jorge Genikevin, PRACTICING MD ANESTHESIOLOGIST Pager: [phone] Inpatient Physical Therapy Problem: Acute Rehab Services [...] sit/sit to supine -- Bed Mobility Goal, [place] Level supervision required -- Bed Mobility Goal, [...] - 3 days -- Gait Training Goal, [place] Level supervision required -- Gait Training Goal, [...] days -- Transfer Training Goal, Activity Type hby-gs-rxodl/wvtez-cl-nxz;jjh-zp-dfvqc/zdvfh-oe-hfs;toilet -- Transfer Train Goal, [place] Level supervision required -- Transfer Training Goal, [...] keeping present for 2 days per family. Remelter noted of frustrations, house keeping sent to room. Patient offered showered twice, refused. at bedside, frustrated that shower not complete, informed that patient had refused several times. requesting to see PROFESSOR OF ENVIRONMENTAL SCIENCE, paged sent to Martha, will come to bedside (middle of consult). not willing to wait, Martha notified that family had gone home. Encouraged to come for morning rounds a t 8am. Diabetes team at bedside - insulin adjustments made. Call cabello in reach. Continue to monitor. PLAN MOVING FORWARD: Ambulate, dressing changes BID, Please change drsg at 4am per Martha PROFESSOR OF ENVIRONMENTAL SCIENCE request. INDIVIDUALIZED FALL PREVENTION INTERVENTIONS: Patient-specific fall [...] levels on the lower side, 60ml of [place] juice given after a FS of 80. [...] Anticipated Discharge Disposition: home with assist Pager: [phone] CLARISSA SEGAL, PT 07/12/2017 Physical Therapy Rehabilitation [...] to sit/sit to supine Bed Mobility Goal, [place] Level supervision required Bed Mobility Goal, Additional Goal adheres to psternal precautions for transfer Goal: Gait Training Goal Stand Alone Therapy Goal Outcome: Ongoing (Interventions Implemented as Appropriate) 07/12/17 1225 Gait Training Goal Gait Training Goal, Date Established 07/12/17 Gait Training Goal, Time to Achieve 2 - 3 days Gait Training Goal, [place] Level supervision required Gait Training Goal, Assist [...] 3 days Transfer Training Goal, Activity Type hdz-ia-oprxc/dafjj-lz-onh;eqw-ft-aruft/usbtq-qj-zxa;toilet Transfer Train Goal, [place] Level supervision required Transfer Training Goal, Additional Goal adheres to sternal precautions during transfer Consult Note - Octavia Vaughn RN - 07/12/2017 10:50 AM EST [facility] CARDIAC REHABILITATION Gregory Hoang was seen today regarding participation in the outpatient Phase 2 Cardiac Rehabilitation at [facility]. The patient agrees to a referral to [...] IV site, amio to other piv and PHOTOGRAPHER MODEL at bedside to help assess, IV removed. [...] staff, he stood and marched in place. [place] weak, wanting to sit back down. Remained [...] Health/Prescription Coverage: Primary Insurance: MEDICARE Secondary Insurance: [employer] [place] Prescription Coverage: yes Preferred Pharmacy: [facility] [place] Other: none Primary Care Provider: Lovely Vicente MD [phone] Patient/Caregiver Goals of Treatment:live and get my breath back Potential Needs for Transition of Care: Rehab/SNF: [facility] Home Health: NA DME: TBD Dialysis: na Community Resources: available Transportation: yes Other: none Anticipated Barriers to Discharge/Special Considerations: none Plan: Likely SNF Rehab before home A member of the Care Management team will continue to monitor progress, follow for continuity of care and assist with transition of care planning. ERLIN Weiss Pager: [phone] Consult Note - Katerin Azul RN - [...] management and to provide a review of couture dressmaker diabetes care. Diabetes History: Grgeory Hoang has had diabetes for . Current [...] potential to d/c gtt and start CF. skilled nursing diabetes care: Medications - Outpatient treatment regimen recommendations pending based on the hospital course. Monitoring - continue BG tid ac & hs Diet - low fat/low carb diet Exercise - weight-bearing exercise 30 min/day, as tolerated Thank you for allowing us to provide care for your patient W/E coverage, Dr. Jeane Tatum, pager [phone] Katerin Azul APRN Endocrinology Diabetes Management Pager [...] Webber MD - 07/07/2017 6:27 PM EST [facility] Operative Note Patient Name: Gregory Hoang : [id number] MR#: [id number] Case Date: 07/07/2017 Surgeon: Surgeon(s) and Role: * Yuan Webber MD - Primary * Michael Drake PA - Physician Fast Food Assistant Restaurant Manager * Linda Flores PA - Physician Fast Food Assistant Restaurant Manager Preoperative diagnosis: 3VD Postoperative diagnosis: CAD, [...] was prepared and the end of the THOMPOSN was anastomosed to the side of the [...] Operative Note Patient Name: Gregory Hoang : [id number] MR#: [id number] Case Date: 07/07/2017 Surgeon: Surgeon(s) and Role: * Yuan Webber MD - Primary * Michael Drake PA - Physician Fast Food Assistant Restaurant Manager * Linda Flores PA - Physician Fast Food Assistant Restaurant Manager Preoperative diagnosis: 3VD Postoperative diagnosis: CAD, [...] code status: Full Code Katty Hahn, MS3 [facility] Cardiology S1 (Pager [phone]) Plan of Care - Emelia Ibarra RN [...] at [facility] ENDOSCOPY ??? 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 [...] Cardiology Vitaliy Nobles MD [facility] [address] [place], [place] [address] (Wo rk) 06/10/2022 Office Visit Dermatology Laura Scherer MD [facility] [address] [place], [place] [address] (Wo rk) Scheduled Orders Name [...] procedure are i n the results section. SECURITY AUDITOR SCAN 07/15/2017 12:00 Res ults for this [...] Routine 07/08/2017 4:00 Results f or this ([facility]) AM EST procedure are i [...] Routine 07/07/2017 5:15 Results f or this ([facility]) AM EST procedure are i [...] Routine 07/06/2017 7:40 Results f or this ([facility]) PM EST procedure are i [...] Timed 07/06/2017 2:10 Results f or this ([facility]) PM EST procedure are i n the [...] section. TYPE AND SCREEN Routine 07/06/2017 12:00 ([facility]/SHANDA) PM EST APTT STAT 07/06/2017 [...] Routine 07/06/2017 8:10 Results f or this ([facility]) AM EST procedure are i [...] Routine 07/06/2017 2:20 Results f or this ([facility]) AM EST procedure are i [...] Routine 07/05/2017 8:20 Results f or this ([facility]) PM EST procedure are i [...] Timed 07/05/2017 4:55 Results f or this ([facility]) PM EST procedure are i [...] 2017 EXAMINATION: XR CHEST PA AND LATERAL (TheatroIC) CLINICAL HISTORY: CABG x 3 TECHNIQUE: PA [...] [place] at 08/19/2017 10:30 AM Martha Teague RELIABILITY MANAGER IMG DX ORDERABLES SCAN DOC: SECURITY AUDITOR (07/15/2017 12:00 AM EST) Narrative 07/15/2017 12:00 [...] Signature POC Glucose 186 65 - 199 [facility] mg/dL [facility] Comment: Supplemental ranges: <140 mg/dL before meals <180 mg/dL all other times of the day Specimen Anatomical Collection Method Collection Time Receive d Time (Source) Location / / Volume Laterality Blood specimen 07/14/2017 11:56 7 (specimen) AM EST 11:56 AM EST Yuan Webber MD POINT OF CARE TEST ORDERABLE S Performing Organization Address City/State/[place] [address] POCT Glucose (07/14/2017 7:52 AM EST) athologist Signature POC Glucose 126 65 - 199 [facility] mg/dL [facility] Comment: Supplemental ranges: <140 mg/dL before meals <180 mg/dL all other times of the day Specimen Anatomical Collection Method Collection Time Receive d Time (Source) Location / / Volume Laterality Blood specimen 07/14/2017 7:52 AM 017 7:52 (specimen) EST AM EST Yuan Webber MD POINT OF CARE TEST ORDERABLE S Performing Organization Address City/[facility]/ZIP Code [place] [address] (ABNORMAL) Prothrombin Time (07/14/2017 4:46 AM EST) athologist Signature PT 26.4 (H) 11.8 - 14.0 [facility] LABORATORY INR 2.4 (H) 0.9 - 1.[facility] [...] Wilson APRN HEMATOLOGY ORDERABLES Performing Organization Address City/[facility]/ZIP Code [place] [address] Potassium (07/14/2017 4:46 AM EST) athologist Signature Potassium 4.3 3.5 - 5.0 [facility] mmol/L [facility] Comment: Please [...] Address City/State/ZIP Code Phon e Number [address] POCT Glucose (07/14/2017 4:34 AM EST) athologist Signature POC Glucose 115 65 - 199 [place] mg/dL [facility] Comment: Supplemental ranges: <140 mg/dL before meals <180 mg/dL all other times of the day Specimen Anatomical Collection Method Collection Time Receive d Time (Source) Location / / Volume Laterality Blood specimen 07/14/2017 4:34 AM 017 4:34 (specimen) EST AM EST Yuan Webber MD POINT OF CARE TEST ORDERABLE S Performing Organization Address City/[facility]/ZIP Code Phon e Number [address] POCT Glucose (07/13/2017 11:33 PM EST) athologist Signature POC Glucose 132 65 - 199 [place] mg/dL [facility] Comment: Supplemental ranges: <140 mg/dL before meals <180 mg/dL all other times of the day Specimen Anatomical Collection Method Collection Time Receive d Time (Source) Location / / Volume Laterality Blood specimen 07/13/2017 11:33 7 (specimen) PM EST 11:33 PM EST Yuan Webber MD POINT OF CARE TEST ORDERABLE S Performing Organization Address City/[facility]/ZIP Code Ph[place] [address] POCT Glucose (07/13/2017 9:25 PM EST) athologist Signature POC Glucose 121 65 - 199 [place] mg/dL [facility] [...] Organization Address City/State/ZIP Code [place] [address] POCT Glucose (07/13/2017 4:55 PM EST) athologist Signature POC Glucose 79 65 - 199 [facility] mg/dL [facility] Comment: Supplemental [...] Address City/State/ZIP Code Phon e Number [address] POCT Glucose (07/13/2017 11:16 AM EST) athologist Signature POC Glucose 163 65 - 199 [facility] RYAN mg/dL [facility] Comment: [...] Address City/State/ZIP Code Phon e Number [address] POCT Glucose (07/13/2017 8:07 AM EST) athologist Signature POC Glucose 96 65 - 199 [place] mg/dL [facility] Comment: Supplemental ranges: <140 mg/dL before meals <180 mg/dL all other times of the day Specimen Anatomical Collection Method Collection Time Receive d Time (Source) Location / / Volume Laterality Blood specimen 07/13/2017 8:07 AM 017 8:07 (specimen) EST AM EST Yuan Webber MD POINT OF CARE TEST ORDERABLE S Performing Organization Address City/State/ZIP Code [place] [address] (ABNORMAL) Prothrombin Time (07/13/2017 4:26 AM EST) P athologist Signature PT 20.8 (H) 11.8 - 14.0 [facility] LABORATORY INR 1.8 (H) 0.9 - 1.1 [facility] [...] Organization Address City/State/ZIP Code [place] [address] (ABNORMAL) Basic Metabolic Panel (non-fasting) (07/13/2017 4:26 AM EST) athologist Signature Glucose Lvl 95 65 - 199 [facility] mg/dL [...] 107 mmol/L [facility] CO2 26 22 - 31 mmol/L [facility] Anion Gap 13 5 - 15 mmol/L [facility] Calcium 7.7 (L) 8.5 - 10.5 mg/dL [facility] LABORATORY Estimated GFR 60 >=60 [facility] Comment: The reported eGFR should be multiplied b y 1.2 for patients. The MDRD is not an appropriate measure o f renal function for patients with body mass extremes or in patients with acute kidney failure. http://Domee/DHnkdep http://Domee/DHMCnkf Specimen Anatomical Collection Method Collection Time Receive d Time (Source) Location / / Volume Laterality Blood specimen 07/13/2017 4:26 AM 017 4:46 (specimen) EST AM EST Resulting Agency Comment Spec In Lab Makayla Wilson APRN CHEMISTRY ORDERABLES Performing Organization Address City/[facility]/ZIP Code Phon e Number [address] POCT Glucose (07/13/2017 3:52 AM EST) athologist Signature POC Glucose 93 65 - 199 [facility] Comment: Supplemental [...] Address City/State/ZIP Code Phon e Number [address] POCT Glucose (07/13/2017 12:21 AM EST) athologist Signature POC Glucose 80 65 - 199 [facility] mg[facility] Comment: Supplemental [...] Address City/State/ZIP Code Phon e Number [address] POCT Glucose (07/12/2017 8:22 PM EST) athologist Signature POC Glucose 119 65 - 199 [place] mg/dL [facility] Comment: Supplemental ranges: <140 mg/dL before meals <180 mg/dL all other times of the day Specimen Anatomical Collection Method Collection Time Receive d Time (Source) Location / / Volume Laterality Blood specimen 07/12/2017 8:22 PM 017 8:22 (specimen) EST PM EST Yuan Webber MD POINT OF CARE TEST ORDERABLE S Performing Organization Address City/[facility]/ZIP Code Phon e Number [address] POCT Glucose (07/12/2017 4:02 PM EST) athologist Signature POC Glucose 114 65 - 199 [place] mg/dL [facility] Comment: Supplemental ranges: <140 mg/dL before meals <180 mg/dL all other times of the day Specimen Anatomical Collection Method Collection Time Receive d Time (Source) Location / / Volume Laterality Blood specimen 07/12/2017 4:02 PM 017 4:02 (specimen) EST PM EST Yuan Webber MD POINT OF CARE TEST ORDERABLE S Performing Organization Address City/[facility]/ZIP Code Ph[place] [address] POCT Glucose (07/12/2017 11:28 AM EST) athologist Signature POC Glucose 164 65 - 199 [place] mg/dL [facility] [...] Address City/State/ZIP Code Phon e Number [address] POCT Glucose (07/12/2017 7:34 AM EST) athologist Signature POC Glucose 109 65 - 199 [facility] Comment: Supplemental ranges: <140 mg/dL before meals <180 mg/dL all other times of the day Specimen Anatomical Collection Method Collection Time Receive d Time (Source) Location / / Volume Laterality Blood specimen 07/12/2017 7:34 AM 017 7:34 (specimen) EST AM EST Yuan Webber MD POINT OF CARE TEST ORDERABLE S Performing Organization Address City/State/ZIP Code [place] [address] (ABNORMAL) Basic Metabolic Panel (non-fasting) (07/12/2017 4:11 AM EST) athologist Signature Glucose Lvl 92 65 - 199 [facility] mg[facility]dL [facility] Comment: Diabetes: >=200 mg/dL plus symp toms BUN 31 (H) 10 - 20 mg/dL [facility] Creatinine 1.23 0.80 - 1.50 mg/dL [facility] Sodium 145 135 - 145 [...] estions. Chloride 106 98 - 107 mmol/L [facility] CO2 Not Perf 22 - 31 mmol/L [facility] Comment: Add-on request. Sample too old to perform test. Anion Gap Not Calculated 5 - 15 mmol/L [facility] Calcium 8.1 (L) 8.5 - 10.5 mg/dL [facility] Estimated GFR 58 (L) >=60 [facility] Comment: The reported eGFR should be multiplied b y 1.2 for patients. The MDRD is not an appropriate measure o f renal function for patients with body mass extremes or in patients with acute kidney failure. http://Domee/DHnkdep http://Domee/DHMCnkf Specimen Anatomical Collection Method Collection Time Receive d Time (Source) Location / / Volume Laterality Blood specimen 07/12/2017 4:11 AM 017 8:57 (specimen) EST AM EST Resulting Agency Comment Spec In Lab [facility] ST[facility]IE CHEMISTRY ORDERABLES Performing Organization Address [facility] Phon e Number [address] (ABNORMAL) Prothrombin Time (07/12/2017 4:11 AM EST) P athologist Signature PT 15.4 (H) 11.8 - 14.0 [facility] LABORATORY INR 1.2 (H) 0.9 - 1.1 [facility] [...] [place] STACIE HEMATOLOGY ORDERABLES Performing Organization Address [facility] Phon e Number [address] Potassium (07/12/2017 4:11 AM EST) P athologist Signature Potassium 3.8 3.5 - 5.0 [facility] mmol/L [facility] Comment: Please [...] Wilson APRN CHEMISTRY ORDERABLES Performing Organization Address City/[facility]/ZIP [facility] Phon e Number [address] POCT Glucose (07/12/2017 4:10 AM EST) athologist Signature POC Glucose 90 65 - 199 [facility] Comment: Supplemental ranges: <140 mg/dL before meals <180 mg/dL all other times of the day Specimen Anatomical Collection Method Collection Time Receive d Time (Source) Location / / Volume Laterality Blood specimen 07/12/2017 4:10 AM 017 4:10 (specimen) EST AM EST Yuan Webber MD POINT OF CARE TEST ORDERABLE S Performing Organization Address City/[facility] Code Phon e Number [address] POCT Glucose (07/11/2017 11:57 PM EST) athologist Signature POC Glucose 98 65 - 199 [facility] mg/dL [facility] Comment: Supplemental ranges: <140 mg/dL before meals <180 mg/dL all other times of the day Specimen Anatomical Collection Method Collection Time Receive d Time (Source) Location / / Volume Laterality Blood specimen 07/11/2017 11:57 7 (specimen) PM EST 11:57 PM EST Yuan Webber MD POINT OF CARE TEST ORDERABLE S Performing Organization Address City/[facility]/ZIP Code Phon e Number [address] POCT Glucose (07/11/2017 8:32 PM EST) P athologist Signature POC Glucose 146 65 - 199 [place] mg/dL [facility] [...] Organization Address City/State/[place] [address] XR Chest PA & [...] e xtubated, left chest tube removed, and [place] catheter removed since the study. Atelectasis at [...] e xtubated, left chest tube removed, and [place] catheter removed since the study. Atelectasis at [...] CARE TEST ORDERABLE S Performing Organization Address City/[facility]/ZIP Code Phon e Number [address] POCT Glucose (07/11/2017 11:55 AM EST) athologist Signature POC Glucose 176 65 - 199 [place] mg/dL [facility] [...] Organization Address City/State/ZIP Code [place] [address] POCT Glucose (07/11/2017 7:53 AM EST) athologist Signature POC Glucose 189 65 - 199 [place] mg/dL [facility] [...] Organization Address City/State/ZIP Code [place] [address] POCT Glucose (07/11/2017 4:22 AM EST) athologist Signature POC Glucose 151 65 - 199 [place] mg/dL [facility] Comment: Supplemental ranges: <140 mg/dL before meals <180 mg/dL all other times of the day Specimen Anatomical Collection Method Collection Time Receive d Time (Source) Location / / Volume Laterality Blood specimen 07/11/2017 4:22 AM 017 4:22 (specimen) EST AM EST Yuan Webber MD POINT OF CARE TEST ORDERABLE S Performing Organization Address City/[facility]/ZIP Code [place] [address] Potassium (07/11/2017 2:20 AM EST) athologist Signature Potassium 4.5 3.5 - 5.0 [facility] mmol/L [facility] Comment: Please [...] Webber MD CHEMISTRY ORDERABLES Performing Organization Address City/[facility]/ZIP Code Phon e Number [address] POCT Glucose (07/11/2017 12:17 AM EST) athologist Signature POC Glucose 162 65 - 199 [place] mg/dL [facility] [...] Organization Address City/State/ZIP Code [place] [address] POCT Glucose (07/10/2017 8:47 PM EST) athologist Signature POC Glucose 191 65 - 199 [place] mg/dL [facility] [...] Organization Address City/State/ZIP Code Ph[place] [address] POCT Glucose (07/10/2017 4:06 PM EST) athologist Signature POC Glucose 131 65 - 199 [place] mg/dL [facility] [...] Address City/State/ZIP Code Phon e Number [address] POCT Glucose (07/10/2017 3:08 PM EST) athologist Signature POC Glucose 151 65 - 199 [facility] R[facility]AN mg/dL [facility] Comment: [...] Address City/State/ZIP Code Phon e Number [address] POCT Glucose (07/10/2017 2:25 PM EST) athologist Signature POC Glucose 146 65 - 199 [place] mg/dL [facility] [...] Organization Address City/State/ZIP Code Ph[place] [address] POCT Glucose (07/10/2017 1:23 PM EST) athologist Signature POC Glucose 166 65 - 199 [place] mg/dL [facility] [...] Organization Address City/State/ZIP Code Ph[place] [address] POCT Glucose (07/10/2017 11:52 AM EST) athologist Signature POC Glucose 157 65 - 199 [place] mg/dL [facility] [...] Address City/State/ZIP Code Phon e Number [address] POCT Glucose (07/10/2017 11:01 AM EST) P athologist Signature POC Glucose 158 65 - 199 [place] mg/dL [facility] Comment: Supplemental ranges: <140 mg/dL before meals <180 mg/dL all other times of the day Specimen Anatomical Collection Method Collection Time Receive d Time (Source) Location / / Volume Laterality Blood specimen 07/10/2017 11:01 7 (specimen) AM EST 11:01 AM EST Yuan Webber MD POINT OF CARE TEST ORDERABLE S Performing Organization Address City/[facility]/ZIP Code Phon e Number [address] POCT Glucose (07/10/2017 9:54 AM EST) P athologist Signature POC Glucose 160 65 - 199 [place] mg/dL [facility] [...] Address City/State/ZIP Code Phon e Number [address] POCT Glucose (07/10/2017 8:58 AM EST) P athologist Signature POC Glucose 183 65 - 199 [place] mg/dL [facility] Comment: Supplemental [...] Address City/State/ZIP Code Phon e Number [address] POCT Glucose (07/10/2017 8:01 AM EST) athologist Signature POC Glucose 173 65 - 199 [place] mg/dL [facility] Comment: Supplemental [...] Address City/State/ZIP Code Phon e Number [address] POCT Glucose (07/10/2017 7:05 AM EST) athologist Signature POC Glucose 166 65 - 199 [place] mg/dL [facility] Comment: Supplemental [...] Address City/State/ZIP Code Phon e Number [address] POCT Glucose (07/10/2017 6:00 AM EST) athologist Signature POC Glucose 162 65 - 199 [facility] RYAN mg/dL [facility] Comment: [...] City/State/ZIP Code Phon e Number [place] [phone] [facility] LABORATORY Drive (ABNORMAL) Differential, Automated (07/10/2017 4:28 AM EST) [facility] Method Time Signature Neutrophils % 87.9 % [facility] Neutr Abs (ANC) 10.70 (H) 1.70 - [facility] 6.10 [facility] x10(3)/[facility] L LABORATORY Lymphocytes % 3.9 % [facility] Lymphocytes Abs 0.5 (L) 0.9 - 3.2 [facility] x10(3)/[facility] LABORATORY Monocytes % 7.0 % [facility] Monocyte Abs 0.8 0.3 - 0.9 [facility] x10(3)/[facility] LABORATORY Eosinophils % 0.3 % [facility] Eosinophils Abs 0.0 0.0 - 0.4 [facility] x10(3)/[facility] LABORATORY Basophils % 0.2 % [facility] Basophils Abs 0.0 0.0 - 0.1 [facility] x10(3)/[facility] LABORATORY Immature Gran % 0.70 % ST. [...] Webber MD HEMATOLOGY ORDERABLES Performing Organization Address City/[facility]/ZIP Code Phon e Number [place] [phone] (ABNORMAL) Hemogram (07/10/2017 4:28 AM EST) Analysis Performed At Patho logist Time Signature WBC 12.2 (H) 4.0 - 9.5 [facility] x10(3)/[facility] LABORATORY RBC 3.31 (L) 4.58 - [facility] 5.54 [facility] x10(6)/[facility] LABORATORY Hemoglobin 9.8 (L) 13.7 - [facility] 16.5 gm/dL [facility] Hematocrit 30.0 (L) 40.5 - [facility] 48.5 % [facility] MCV 90.6 82.9 - [facility] 93.1 [facility] LABORATORY MCH 29.6 27.5 - [facility] 32.[address] [facility] MCHC 32.7 32.0 - [facility] 35.7 gm/dL [facility] Platelets 135 (L) 145 - 357 [facility] x10(3)/[facility] LABORATORY RDWSD 50.8 (H) 36.0 - [facility] 45.0 [facility] LABORATORY RDWCV 15.4 (H) 11.4 - [facility] 13.8 % [facility] MPV 10.0 7.6 - 12.9 [facility] LABORATORY nRBC % Auto 0.0 % [facility] nRBC Abs Auto 0.000 0.000 - [facility] 0.000 [facility] x10(3)/[facility] LABORATORY Specimen Anatomical Collection Method Collection Time Receive d Time (Source) Location / / Volume Laterality Blood specimen 07/10/2017 4:28 AM 017 4:36 (specimen) EST AM EST Resulting Agency Comment Spec In Lab Yuan Webber MD HEMATOLOGY ORDERABLES Performing Organization Address City/State/[place] [address] (ABNORMAL) Basic Metabolic Panel (non-fasting) (07/10/2017 4:28 AM EST) P athologist Signature Glucose Lvl 178 65 - 199 [facility] mg/dL [...] estions. Chloride 107 98 - 107 mmol/L [facility] CO2 21 (L) 22 - 31 mmol/L [facility] Anion Gap 15 5 - 15 mmol/L [facility] Calcium 7.4 (L) 8.5 - 10.5 mg/dL [facility] Estimated GFR 60 >=60 [facility] Comment: The reported eGFR should be multiplied b y 1.2 for patients. The MDRD is not an appropriate measure o f renal function for patients with body mass extremes or in patients with acute kidney failure. [email or web address]/DHnkdep http://Domee/DHMCnkf Specimen Anatomical Collection Method Collection Time Receive d Time (Source) Location / / Volume Laterality Blood specimen 07/10/2017 4:28 AM 017 4:36 (specimen) EST AM EST Resulting Agency Comment Spec In Lab Yuan Webber MD CHEMISTRY ORDERABLES Performing Organization Address City/State/[place] [address] POCT Glucose (07/10/2017 4:26 AM EST) P athologist Signature POC Glucose 176 65 - 199 [facility] mg/dL [facility] Comment: Supplemental [...] Address City/State/ZIP Code Phon e Number [address] (ABNORMAL) POCT Glucose (07/10/2017 [...] CARE TEST ORDERABLE S Performing Organization Address City/[facility]/ZIP Code [place] [address] (ABNORMAL) POCT Glucose (07/10/2017 [...] Address City/State/ZIP Code Phon e Number [address] POCT Glucose (07/10/2017 1:09 AM EST) P athologist Signature POC Glucose 196 65 - 199 [facility] mg/dL [facility] Comment: [...] Organization Address City/State/ZIP Code [place] [address] POCT Glucose (07/10/2017 12:10 AM EST) P athologist Signature POC Glucose 173 65 - 199 [facility] mg/dL [facility] [...] Organization Address City/State/ZIP Code [place] [address] POCT Glucose (07/09/2017 11:01 PM EST) P athologist Signature POC Glucose 140 65 - 199 [place] mg/dL [facility] [...] Organization Address City/State/ZIP Code [place] [address] POCT Glucose (07/09/2017 10:05 PM EST) P athologist Signature POC Glucose 144 65 - 199 [facility] mg/dL [facility] Comment: [...] Address City/State/ZIP Code Phon e Number [address] POCT Glucose (07/09/2017 9:31 PM EST) athologist Signature POC Glucose 121 65 - 199 [facility] mg/dL [facility] Comment: Supplemental ranges: <140 mg/dL before meals <180 mg/dL all other times of the day Specimen Anatomical Collection Method Collection Time Receive d Time (Source) Location / / Volume Laterality Blood specimen 07/09/2017 9:31 PM 017 9:31 (specimen) EST PM EST Yuan Webber MD POINT OF CARE TEST ORDERABLE S Performing Organization Address City/[facility]/ZIP Code Phon e Number [address] POCT Glucose (07/09/2017 9:03 PM EST) athologist Signature POC Glucose 98 65 - 199 [facility] mg/dL [facility] Comment: Supplemental ranges: <140 mg/dL before meals <180 mg/dL all other times of the day Specimen Anatomical Collection Method Collection Time Receive d Time (Source) Location / / Volume Laterality Blood specimen 07/09/2017 9:03 PM 017 9:03 (specimen) EST PM EST Yuan Webber MD POINT OF CARE TEST ORDERABLE S Performing Organization Address City/[facility]/ZIP Code Ph[place] [address] POCT Glucose (07/09/2017 8:09 PM EST) athologist Signature POC Glucose 117 65 - 199 [facility] mg/dL [facility] [...] Address City/State/ZIP Code Phon e Number [address] POCT Glucose (07/09/2017 5:40 PM EST) athologist Signature POC Glucose 155 65 - 199 [facility] mg/dL [facility] Comment: Supplemental ranges: <140 mg/dL before meals <180 mg/dL all other times of the day Specimen Anatomical Collection Method Collection Time Receive d Time (Source) Location / / Volume Laterality Blood specimen 07/09/2017 5:40 PM 017 5:40 (specimen) EST PM EST Yuan Webber MD POINT OF CARE TEST ORDERABLE S Performing Organization Address City/[facility]/ZIP Code Phon e Number [address] POCT Glucose (07/09/2017 4:24 PM EST) athologist Signature POC Glucose 164 65 - 199 [facility] mg/dL [facility] Comment: [...] Address City/State/ZIP Code Phon e Number [address] POCT Glucose (07/09/2017 3:19 PM EST) athologist Signature POC Glucose 166 65 - 199 [facility] mg/dL [facility] Comment: [...] Organization Address City/State/ZIP Code [place] [address] POCT Glucose (07/09/2017 2:26 PM EST) athologist Signature POC Glucose 179 65 - 199 [facility] mg/dL [facility] Comment: Supplemental ranges: <140 mg/dL before meals <180 mg/dL all other times of the day Specimen Anatomical Collection Method Collection Time Receive d Time (Source) Location / / Volume Laterality Blood specimen 07/09/2017 2:26 PM 017 2:26 (specimen) EST PM EST Yuan Webber MD POINT OF CARE TEST ORDERABLE S Performing Organization Address City/[facility]/ZIP Code [place] [address] (ABNORMAL) POCT Glucose (07/09/2017 [...] Organization Address City/State/ZIP Code [place] [address] POCT Glucose (07/09/2017 12:20 PM EST) athologist Signature POC Glucose 172 65 - 199 [facility] mg/dL [facility] Comment: Supplemental ranges: <140 mg/dL before meals <180 mg/dL all other times of the day Specimen Anatomical Collection Method Collection Time Receive d Time (Source) Location / / Volume Laterality Blood specimen 07/09/2017 12:20 7 (specimen) PM EST 12:20 PM EST Yuan Webber MD POINT OF CARE TEST ORDERABLE S Performing Organization Address City/State/[place] [address] [facility] [address] POCT Glucose (07/09/2017 11:24 AM EST) P athologist Signature POC Glucose 156 65 - 199 [facility] mg/dL [facility] [...] Organization Address City/State/[place] [address] [facility] [address] POCT Glucose (07/09/2017 11:11 AM EST) athologist Signature POC Glucose 172 65 - 199 [facility] mg/dL [facility] [...] Organization Address City/State/[place] [address] [facility] [address] POCT Glucose (07/09/2017 10:08 AM EST) athologist Signature POC Glucose 176 65 - 199 [facility] mg/dL [facility] [...] Organization Address City/State/[place] [address] POCT Glucose (07/09/2017 8:02 AM EST) P athologist Signature POC Glucose 178 65 - 199 [facility] mg/dL [facility] Comment: Supplemental ranges: <140 mg/dL before meals <180 mg/dL all other times of the day Specimen Anatomical Collection Method Collection Time Receive d Time (Source) Location / / Volume Laterality Blood specimen 07/09/2017 8:02 AM 017 8:02 (specimen) EST AM EST Yuan Webber MD POINT OF CARE TEST ORDERABLE S Performing Organization Address City/State/ZIP Code [place] [address] (ABNORMAL) BLOOD GAS 2 ARTERIAL (07/09/2017 5:37 AM EST) Analysis Performed At Patho logist Time Signature pH Art 7.36 7.35 - [facility] [address] [facility] pCO2 Art 38 35 - 45 [facility] LABORATORY pO2 Art 79 (L) 85 - 104 [facility] LABORATORY HCO3 Art 20.9 20.0 - [facility] 26.0 [facility] mmol/L [facility] BE Art -4.6 (L) -3.0 - 3.0 [facility] mmol/L [facility] Hgb Blood Gas 10.5 (L) 13.7 - [facility] 16.5 gm/dL [facility] O2HB Art 93.8 (L) 94.0 - [facility] 97.0 % [facility] COHB Art 0.3 % [facility] Comment: Nonsmokers: 0.5-1.5% COHB Smokers: Variable, but usually less than 10% Toxic: 20-30% COHB Lethal: Greater than 60% COHB METHB Art 0.6 <=1.5 % [facility] Na Whole Blood 141 135 - 145 mmol/L [facility] K Whole Blood 4.5 3.5 - 5.0 mmol/L [facility] Comment: Please note: Patients with WBC >100,000 may have falsely elevated Potassium levels. Contact the Clinical Chemistry L aboratory if there are any questions. ICa Whole Blood 1.01 (L) 1.15 - 1.33 mmol/L [facility] Comment: Note: ??Total bilirubin higher than 20 m g/dL may lead to falsely low ionized calcium. CL Whole Blood 113 (H) 98 - 107 mmol/L [facility] Gluc Whole Bld 175 65 - 199 mg/dL [facility] Comment: Diabetes: >=200 mg/dL plus symp toms. Lactate WB 1.0 0.5 - 2.2 mmol/L [facility] FIO2 Art 40 % [facility] PF Ratio Art 198 [facility] Specimen Anatomical Collection Method Collection Time Receive d Time (Source) Location / / Volume Laterality Blood specimen 07/09/2017 5:37 AM 017 5:37 (specimen) EST AM EST Yuan Webber MD CHEMISTRY ORDERABLES Performing Organization Address City/[facility]/ZIP Code [place] [address] POCT Glucose (07/09/2017 3:27 AM EST) P athologist Signature POC Glucose 192 65 - 199 [facility] mg/dL [facility] Comment: Supplemental ranges: <140 mg/dL before meals <180 mg/dL all other times of the day Specimen Anatomical Collection Method Collection Time Receive d Time (Source) Location / / Volume Laterality Blood specimen 07/09/2017 3:27 AM 017 3:27 (specimen) EST AM EST Yuan Webber MD POINT OF CARE TEST ORDERABLE S Performing Organization Address City/[facility]/ZIP Code [place] [address] (ABNORMAL) Basic Metabolic Panel (non-fasting) (07/09/2017 2:30 AM EST) P athologist Signature Glucose Lvl 179 65 - 199 [facility] mg/dL [facility] Comment: Diabetes: >=200 mg/dL plus symp toms BUN 17 10 - 20 mg/dL [facility] Creatinine 1.34 0.80 - 1.50 mg/dL [facility] [...] Chloride 111 (H) 98 - 107 mmol/L [facility] [...] or in patients with acute kidney failure. [email or web address]/DHnkdep http://Domee/DHMCnkf Specimen Anatomical Collection Method Collection Time Receive d Time (Source) Location / / Volume Laterality Blood specimen Venous Draw / 07/09/2017 2:30 AM 2016 2:42 (specimen) Unknown EST AM EST Resulting Agency Comment Spec In Lab Yuan Webber MD CHEMISTRY ORDERABLES Performing Organization Address City/State/[place] [address] (ABNORMAL) Potassium (07/09/2017 2:30 AM EST) P athologist Signature Potassium 5.1 (H) 3.5 - 5.0 [facility] mmol/L [facility] Comment: Please [...] Organization Address City/State/[place] [address] (ABNORMAL) Hemogram (07/09/2017 2:30 AM EST) Analysis Performed At Patho logist Time Signature WBC 12.5 (H) 4.0 - 9.5 [facility] x10(3)/[facility] LABORATORY RBC 3.38 (L) 4.58 - [facility] 5.54 [facility] x10(6)/[facility] LABORATORY Hemoglobin 10.1 (L) 13.7 - [facility] 16.5 gm/dL [facility] Hematocrit 30.3 (L) 40.5 - [facility] 48.5 % [facility] MCV 89.6 82.9 - [facility] 93.1 [facility] LABORATORY MCH 29.9 27.5 - [facility] 32.[address] [facility] MCHC 33.3 32.0 - [facility] 35.7 gm/dL [facility] Platelets 127 (L) 145 - 357 [facility] x10(3)/[facility] LABORATORY RDWSD 49.3 (H) 36.0 - [facility] 45.0 [facility] LABORATORY RDWCV 15.2 (H) 11.4 - [facility] 13.8 % [facility] MPV 9.9 7.6 - 12.9 [facility] LABORATORY nRBC % Auto 0.0 % [facility] nRBC Abs Auto 0.000 0.000 - [facility] 0.000 [facility] x10(3)/[facility] LABORATORY Specimen Anatomical Collection Method Collection Time Receive d Time (Source) Location / / Volume Laterality Blood specimen 07/09/2017 2:30 AM 017 2:41 (specimen) EST AM EST Resulting Agency Comment Spec In Lab Yuan Webber MD HEMATOLOGY ORDERABLES Performing Organization Address City/[facility]/ZIP Code Phon e Number [address] POCT Glucose (07/09/2017 2:10 AM EST) P athologist Signature POC Glucose 169 65 - 199 [facility] mg/dL [facility] Comment: Supplemental ranges: <140 mg/dL before meals <180 mg/dL all other times of the day Specimen Anatomical Collection Method Collection Time Receive d Time (Source) Location / / Volume Laterality Blood specimen 07/09/2017 2:10 AM 017 2:10 (specimen) EST AM EST Yuan Webber MD POINT OF CARE TEST ORDERABLE S Performing Organization Address City/[facility]/ZIP Code [place] [address] POCT Glucose (07/09/2017 1:01 AM EST) P athologist Signature POC Glucose 173 65 - 199 [facility] mg/dL [facility] Comment: Supplemental ranges: <140 mg/dL before meals <180 mg/dL all other times of the day Specimen Anatomical Collection Method Collection Time Receive d Time (Source) Location / / Volume Laterality Blood specimen 07/09/2017 1:01 AM 017 1:01 (specimen) EST AM EST Yuan Webber MD POINT OF CARE TEST ORDERABLE S Performing Organization Address City/[facility]/ZIP Code Phon e Number [address] Blood culture (07/09/2017 12:40 AM EST) [facility] Method Time Signature Blood Culture No growth [facility] at [address] [facility] Specimen Anatomical Collection Method Collection Time Receive d Time (Source) Location / / Volume Laterality Blood specimen STRUCTURE OF RIGHT 07/09/2017 12:40 3:58 (specimen) UPPER LIMB / AM EST AM EST Unknown Resulting Agency Comment Spec In Lab Yuan Webber MD MICROBIOLOGY - BLOOD ORDERAB LES Performing Organization Address City/State/ZIP Code [place] [address] Blood culture (07/09/2017 12:30 AM EST) [facility] [employer] Method Time Signature Blood Culture No growth [facility] DAV[place] at [address] [facility] Specimen Anatomical Collection Method Collection Time Receive d Time (Source) Location / / Volume Laterality Blood specimen STRUCTURE OF LEFT 07/09/2017 12:30 1211/2016 3:59 (specimen) UPPER LIMB / AM EST AM EST Unknown Resulting Agency Comment Spec In Lab Yuan Webber MD MICROBIOLOGY - BLOOD ORDERAB LES Performing Organization Address City/[facility]/ZIP Code [place] [address] (ABNORMAL) Urinalysis Microscopic Exam (07/09/2017 12:05 AM EST) Analysis Performed At Patho logist Time Signature RBC UA 32 (H) 0 - 3 /HPF [facility] WBC UA 5 (H) 0 - 3 /HPF [facility] Squam Epith UA <1 <=4 /HPF [facility] Hyaline Cast 17 (H) 0 - 2 /LPF [facility] Gran Cast UA 1 (H) <=0 /LPF [facility] Uric Ac Bianca Rare (A) None /HPF [facility] Specimen (Source) Anatomical Collection Method Collection Time Re ceived Time Location / / Volume Laterality Urine specimen 07/09/2017 12:05 07/09/ 7 obtained via AM EST 12:39 AM EST indwelling urinary catheter (specimen) Resulting Agency Comment Spec In Lab Yuan Webber MD URINE ORDERABLES Performing Organization Address City/State/ZIP Code [place] [address] (ABNORMAL) Urinalysis with reflex Culture (07/09/2017 12:05 AM EST) [facility] [employer] Method Time Signature Glucose UA Negative Negative [facility] mg/dL [facility] Protein UA 30 (A) Negative [facility] Bilirubin UA Negative Negative [facility] Comment: Clinical correlation required for positi ve Urine Bilirubin results as false positive may occur with some drugs and d rug related products. If a false positive is suspected a serum total bili yeager should be considered if clinically indicated. Urobilinogen UA Normal Normal mg/dL [facility] pH UA 5.0 5.0 - 8.0 [facility] Blood UA Moderate (A) Negative mg/dL [facility] Ketones UA Negative Negative mg/dL [facility] Nitrite UA Negative Negative [facility] Leukocytes UA Negative Negative [facility] LABORATORY Appearance UA Hazy (A) Clear [facility] Spec [place] UA 1.025 1.002 - 1.030 [facility] Color UA Yellow Yellow [facility] Culture Reflexed No [facility] Specimen (Source) Anatomical Collection Method Collection Time Re ceived Time Location / / Volume Laterality Urine specimen 07/09/2017 12:05 7 obtained via AM EST 12:39 AM EST indwelling urinary catheter (specimen) Resulting Agency Comment Spec In Lab Yuan Webber MD URINE ORDERABLES Performing Organization Address City/[facility]/[place] [address] POCT Glucose (07/08/2017 11:01 PM EST) P athologist Signature POC Glucose 191 65 - 199 [facility] mg/dL [facility] Comment: Supplemental ranges: <140 mg/dL before meals <180 mg/dL all other times of the day Specimen Anatomical Collection Method Collection Time Receive d Time (Source) Location / / Volume Laterality Blood specimen 07/08/2017 11:01 7 (specimen) PM EST 11:01 PM EST Yuan Webber MD POINT OF CARE TEST ORDERABLE S Performing Organization Address City/State/[place] [address] POCT Glucose (07/08/2017 10:04 PM EST) athologist Signature POC Glucose 198 65 - 199 [facility] mg/dL [facility] Comment: [...] Address City/State/ZIP Code Phon e Number [address] Prepare Albumin 5% in 250 mL (07/08/2017 8:49 PM EST) athologist Signature Dispensed? Yes [facility] Specimen Anatomical Collection Method Collection Time Receive d Time (Source) Location / / Volume Laterality Blood specimen No Charge / 07/08/2017 8:49 PM 017 8:51 (specimen) Unknown EST PM EST Resulting Agency Comment Spec In Lab [facility] ORDERABLES Performing Organization Address City/State/ZIP Code Phon e Number [address] POCT Glucose (07/08/2017 8:28 PM EST) athologist Signature POC Glucose 195 65 - 199 [facility] mg/dL [facility] [...] Organization Address City/State/ZIP Code [place] [address] (ABNORMAL) POCT Glucose (07/08/2017 7:13 PM EST) P athologist Signature POC Glucose 220 (H) 65 - 199 [facility] Comment: Supplemental [...] Address City/State/ZIP Code Phon e Number [address] POCT Glucose (07/08/2017 5:04 PM EST) athologist Signature POC Glucose 147 65 - 199 [facility] mg/dL [facility] Comment: Supplemental ranges: <140 mg/dL before meals <180 mg/dL all other times of the day Specimen Anatomical Collection Method Collection Time Receive d Time (Source) Location / / Volume Laterality Blood specimen 07/08/2017 5:04 PM 017 5:04 (specimen) EST PM EST Yuan Webber MD POINT OF CARE TEST ORDERABLE S Performing Organization Address City/State/ZIP Code [place] [address] (ABNORMAL) BLOOD GAS 2 ARTERIAL (07/08/2017 4:13 PM EST) Analysis Performed At Patho logist Time Signature pH Art 7.38 7.35 - [facility] [address] [facility] pCO2 Art 36 35 - 45 [facility] LABORATORY pO2 Art 91 85 - 104 [facility] LABORATORY HCO3 Art 20.9 20.0 - [facility] 26.0 [facility] mmol/L [facility]OR[facility] BE Art -4.2 (L) -3.0 - 3.0 [facility] mmol/L [facility] Hgb Blood Gas 11.7 (L) 13.7 - [facility] 16.5 gm/dL [facility] O2HB Art 95.1 94.0 - [facility] 97.0 % [facility] COHB Art 0.6 % [facility] Comment: Nonsmokers: 0.5-1.5% COHB Smokers: Variable, but usually less than 10% Toxic: 20-30% COHB Lethal: Greater than 60% COHB METHB Art 0.6 <=1.5 % [facility] Na Whole Blood 139 135 - 145 mmol/L [facility] K Whole Blood 4.2 3.5 - 5.0 mmol/L [facility] Comment: Please note: Patients with WBC >100,000 may have falsely elevated Potassium levels. Contact the Clinical Chemistry L aboratory if there are any questions. ICa Whole Blood 1.05 (L) 1.15 - 1.33 mmol/L [facility] Comment: Note: ??Total bilirubin higher than 20 m g/dL may lead to falsely low ionized calcium. CL Whole Blood 110 (H) 98 - 107 mmol/L [facility] Gluc Whole Bld 155 65 - 199 mg/dL [facility] Comment: Diabetes: >=200 mg/dL plus symp toms. Lactate WB 1.4 0.5 - 2.2 mmol/L [facility] FIO2 Art 40 % [facility] PF Ratio Art 228 [facility] Specimen Anatomical Collection Method Collection Time Receive d Time (Source) Location / / Volume Laterality Blood specimen 07/08/2017 4:13 PM 017 4:13 (specimen) EST PM EST Yuan Webber MD CHEMISTRY ORDERABLES Performing Organization Address City/State/[place] [address] POCT Glucose (07/08/2017 4:01 PM EST) P athologist Signature POC Glucose 148 65 - 199 [facility] mg/dL [facility] Comment: Supplemental [...] Address City/State/ZIP Code Phon e Number [address] POCT Glucose (07/08/2017 3:21 PM EST) athologist Signature POC Glucose 118 65 - 199 [facility] mg/dL [facility] Comment: Supplemental ranges: <140 mg/dL before meals <180 mg/dL all other times of the day Specimen Anatomical Collection Method Collection Time Receive d Time (Source) Location / / Volume Laterality Blood specimen 07/08/2017 3:21 PM 017 3:21 (specimen) EST PM EST Yuan Webber MD POINT OF CARE TEST ORDERABLE S Performing Organization Address City/State/ZIP Code [place] [address] POCT Glucose (07/08/2017 2:01 PM EST) athologist Signature POC Glucose 129 65 - 199 [facility] mg/dL [facility] [...] Organization Address City/State/ZIP Code [place] [address] POCT Glucose (07/08/2017 11:53 AM EST) athologist Signature POC Glucose 156 65 - 199 [facility] mg/dL [facility] [...] Address City/State/ZIP Code Phon e Number [address] LABORATORY Drive POCT Glucose (07/08/2017 11:04 AM EST) athologist Signature POC Glucose 181 65 - 199 [facility]dL [facility] Comment: Supplemental ranges: <140 mg/dL before meals <180 mg/dL all other times of the day Specimen Anatomical Collection Method Collection Time Receive d Time (Source) Location / / Volume Laterality Blood specimen 07/08/2017 11:04 7 (specimen) AM EST 11:04 AM EST Yuan Webber MD POINT OF CARE TEST ORDERABLE S Performing Organization Address City/[facility]/ZIP Code Ph[place] [address] (ABNORMAL) POCT Glucose (07/08/2017 9:24 AM EST) athologist Signature POC Glucose 203 (H) 65 - 199 [facility] Comment: Supplemental ranges: <140 mg/dL before meals <180 mg/dL all other times of the day Specimen Anatomical Collection Method Collection Time Receive d Time (Source) Location / / Volume Laterality Blood specimen 07/08/2017 9:24 AM 017 9:24 (specimen) EST AM EST Yuan Webber MD POINT OF CARE TEST ORDERABLE S Performing Organization Address City/State/ZIP Code [place] [address] APTT (07/08/2017 8:40 AM EST) athologist Signature PTT 33 25 - [address] [facility] Comment: The recommended therapeutic range for fu ll dose, unfractionated heparin at [facility] is 80 ? 114 seconds. [...] Webber MD HEMATOLOGY ORDERABLES Performing Organization Address City/[facility]/ZIP Code [place] [address] (ABNORMAL) Prothrombin Time (07/08/2017 [...] Webber MD HEMATOLOGY ORDERABLES Performing Organization Address City/[facility]/ZIP Code [place] [employer] [place] [address] (ABNORMAL) POCT Glucose (07/08/2017 7:38 AM EST) P athologist Signature POC Glucose 232 (H) 65 - 199 [facility] mg/dL [facility] Comment: Supplemental ranges: <140 mg/dL before meals <180 mg/dL all other times of the day Specimen Anatomical Collection Method Collection Time Receive d Time (Source) Location / / Volume Laterality Blood specimen 07/08/2017 7:38 AM 017 7:38 (specimen) EST AM EST Yuan Webber MD POINT OF CARE TEST ORDERABLE S Performing Organization Address City/[facility]/ZIP Code [place] [employer] [place] [address] (ABNORMAL) POCT Glucose (07/08/2017 7:07 AM EST) athologist Signature POC Glucose 234 (H) 65 - 199 [facility] Comment: Supplemental ranges: <140 mg/dL before meals <180 mg/dL all other times of the day Specimen Anatomical Collection Method Collection Time Receive d Time (Source) Location / / Volume Laterality Blood specimen 07/08/2017 7:07 AM 017 7:07 (specimen) EST AM EST Yuan Webber MD POINT OF CARE TEST ORDERABLE S Performing Organization Address City/State/ZIP Code [place] [employer] [place] [address] (ABNORMAL) POCT Glucose (07/08/2017 6:04 AM EST) athologist Signature POC Glucose 225 (H) 65 - 199 [facility] Comment: Supplemental ranges: <140 mg/dL before meals <180 mg/dL all other times of the day Specimen Anatomical Collection Method Collection Time Receive d Time (Source) Location / / Volume Laterality Blood specimen 07/08/2017 6:04 AM 017 6:04 (specimen) EST AM EST Yuan Webber MD POINT OF CARE TEST ORDERABLE S Performing Organization Address City/State/ZIP Code [place] [address] (ABNORMAL) POCT Glucose (07/08/2017 5:31 AM EST) athologist Signature POC Glucose 216 (H) 65 - 199 [facility] mg/dL [facility] Comment: Supplemental ranges: <140 mg/dL before meals <180 mg/dL all other times of the day Specimen Anatomical Collection Method Collection Time Receive d Time (Source) Location / / Volume Laterality Blood specimen 07/08/2017 5:31 AM 017 5:31 (specimen) EST AM EST Yuan Webber MD POINT OF CARE TEST ORDERABLE S Performing Organization Address City/State/ZIP Code [place] [employer] [place] [address] (ABNORMAL) POCT Glucose (07/08/2017 4:52 AM EST) P athologist Signature POC Glucose 257 (H) 65 - 199 [facility] mg/dL [facility] Comment: Supplemental ranges: <140 mg/dL before meals <180 mg/dL all other times of the day Specimen Anatomical Collection Method Collection Time Receive d Time (Source) Location / / Volume Laterality Blood specimen 07/08/2017 4:52 AM 017 4:52 (specimen) EST AM EST Daphne Shahid MD POINT OF CARE TEST ORDERABLE S Performing Organization Address City/State/[place] [address] (ABNORMAL) BLOOD GAS 2 ARTERIAL (07/08/2017 4:04 AM EST) Analysis Performed At Patho logist Time Signature pH Art 7.30 (L) 7.35 - [facility] [address] [facility] pCO2 Art 41 35 - 45 [facility] LABORATORY pO2 Art 83 (L) 85 - 104 [facility] LABORATORY HCO3 Art 19.6 (L) 20.0 - [facility] 26.0 [facility] mmol/[facility] BE Art -6.8 (L) -3.0 - 3.0 [facility] mmol/L [facility] Hgb Blood Gas 12.2 (L) 13.7 - [facility] 16.5 gm/dL [facility] O2HB Art 93.5 (L) 94.0 - [facility] 97.0 % [facility] COHB Art 0.4 % [facility] Comment: Nonsmokers: 0.5-1.5% COHB Smokers: Variable, but usually less than 10% Toxic: 20-30% COHB Lethal: Greater than 60% COHB METHB Art 0.8 <=1.5 % [facility] Na Whole Blood 138 135 - 145 mmol/L [facility] K Whole Blood 4.4 3.5 - 5.0 mmol/L [facility] Comment: Please note: Patients with WBC >100,000 may have falsely elevated Potassium levels. Contact the Clinical Chemistry L aboratory if there are any questions. ICa Whole Blood 1.05 (L) 1.15 - 1.33 mmol/L [facility] Comment: Note: ??Total bilirubin higher than 20 m g/dL may lead to falsely low ionized calcium. CL Whole Blood 107 98 - 107 mmol/L [facility] Gluc Whole Bld 274 (H) 65 - 199 mg/dL [facility] Comment: Diabetes: >=200 mg/dL plus symp toms. Lactate WB 4.4 (Critical) 0.5 - 2.2 mmol/L [facility] Comment: Noted by dental instrument maker. FIO2 Art 40 % [facility] PF Ratio Art 208 [facility] Specimen Anatomical Collection Method Collection Time Receive d Time (Source) Location / / Volume Laterality Blood specimen 07/08/2017 4:04 AM 017 4:04 (specimen) EST AM EST Daphne Shahid MD CHEMISTRY ORDERABLES Performing Organization Address City/[facility]/ZIP Code Phon e Number [address] Scan, Peripheral Blood (07/08/2017 4:00 AM EST) P athologist Signature Plat Estimate Normal [facility] RBC Morphology Normal [facility] Specimen Anatomical Collection Method Collection Time Receive d Time (Source) Location / / Volume Laterality Blood specimen 07/08/2017 4:00 AM 017 4:09 (specimen) EST AM EST Resulting Agency Comment Spec In Lab Yuan Webber MD HEMATOLOGY ORDERABLES Performing Organization Address City/State/ZIP Code [place] [employer] [place] [address] (ABNORMAL) Differential, Automated (07/08/2017 4:00 AM EST) Patholo gist Method Time Signature Neutrophils % 85.4 % [facility] Neutr Abs (ANC) 16.07 (H) 1.70 - [facility] 6.10 [facility] x10(3)/[facility] L LABORATORY Lymphocytes % 3.5 % [facility] Lymphocytes Abs 0.6 (L) 0.9 - 3.2 [facility] x10(3)/[facility] LABORATORY Monocytes % 10.4 % [facility] Monocyte Abs 2.0 (H) 0.3 - 0.9 [facility] x10(3)/[facility] LABORATORY Eosinophils % 0.0 % [facility] Eosinophils Abs 0.0 0.0 - 0.4 [facility] x10(3)/[facility] LABORATORY Basophils % 0.1 % [facility] Basophils Abs 0.0 0.0 - 0.1 [facility] x10(3)/[facility] LABORATORY Immature Gran % 0.60 [...] Gran Abs 0.12 (H) 0.00 - 0.04 x10(3)/[facility] LABORATORY Specimen Anatomical Collection Method Collection Time Receive d Time (Source) Location / / Volume Laterality Blood specimen 07/08/2017 4:00 AM 017 4:09 (specimen) EST AM EST Resulting Agency Comment Spec In Lab Yuan Webber MD HEMATOLOGY ORDERABLES Performing Organization Address City/State/[place] [address] (ABNORMAL) Hemogram (07/08/2017 4:00 AM EST) Analysis Performed At Patho logist Time Signature WBC 18.8 (H) 4.0 - 9.5 [facility] x10(3)/[facility] LABORATORY RBC 4.00 (L) 4.58 - [facility] 5.54 [facility] x10(6)/[facility] LABORATORY Hemoglobin 11.9 (L) 13.7 - [facility] 16.5 gm/dL [facility] Hematocrit 35.9 (L) 40.5 - [facility] 48.5 % [facility] MCV 89.8 82.9 - [facility] 93.1 [facility] LABORATORY MCH 29.8 27.5 - [facility] 32.[address] [facility] MCHC 33.1 32.0 - [facility] 35.7 gm/dL [facility] Platelets 232 145 - 357 [facility] x10(3)/[facility] LABORATORY RDWSD 47.6 (H) 36.0 - [facility] 45.0 [facility] LABORATORY RDWCV 14.5 (H) 11.4 - [facility] RYAN 13.8 % [facility] MPV 9.5 7.6 - 12.9 [facility] LABORATORY nRBC % Auto 0.0 % [facility] nRBC Abs Auto 0.000 0.000 - [facility] 0.000 [facility] x10(3)/[facility] LABORATORY Specimen Anatomical Collection Method Collection Time Receive d Time (Source) Location / / Volume Laterality Blood specimen 07/08/2017 4:00 AM 017 4:09 (specimen) EST AM EST Resulting Agency Comment Spec In Lab Yuan Webber MD HEMATOLOGY ORDERABLES Performing Organization Address City/State/ZIP Code Phon e Number [place] [id number] (ABNORMAL) Electrolytes panel (07/08/2017 4:00 AM EST) P athologist Signature Sodium 139 135 - 145 [facility] mmol/L [facility] Potassium 4.7 3.5 - 5.0 [facility] mmol/L [facility] Comment: result rechecked-JLK Please note: ??Patients with WBC >100,00 0 may have falsely elevated Potassium levels. ??For accurate Potassium quantif ication in these patients send serum separator tube (gold top) for subsequent determinations. ??Contact the Clinical Chemistry Laboratory if there are any qu estions. Chloride 104 98 - 107 mmol/L [facility] CO2 21 (L) 22 - 31 mmol/L [facility] Anion Gap 14 5 - 15 mmol/L [facility] Specimen Anatomical Collection Method Collection Time Receive d Time (Source) Location / / Volume Laterality Blood specimen 07/08/2017 4:00 AM 017 4:10 (specimen) EST AM EST Resulting Agency Comment Spec In Lab Yuan Webber MD CHEMISTRY ORDERABLES Performing Organization Address City/State/[place] [address] (ABNORMAL) Cardiac Enzymes (LEB/CGP) (07/08/2017 4:00 AM EST) P athologist Signature Troponin-T 1.88 (H) 0.00 - [facility] 0.00 ng/mL [facility] Comment: [...] additional sample may be indicated. Reference: Third [place] Definition of Myocardial Infarction. Journal of the [place] [employer] 2012;60:1581-98 CK, Total 413 (H) 0 - 200 unit/L [facility] Comment: result rechecked-JLK Specimen Anatomical Collection Method Collection Time Receive d Time (Source) Location / / Volume Laterality Blood specimen 07/08/2017 4:00 AM 017 4:09 (specimen) EST AM EST Resulting Agency Comment Spec In Lab Yuan Webber MD CHEMISTRY ORDERABLES Performing Organization Address City/State/ZIP Code Phon e Number [address] (ABNORMAL) Glucose, fasting (07/08/2017 4:00 AM EST) P athologist Signature Glucose 287 (H) 65 - 99 [facility] Fasting mg/dL [facility] Comment: [...] Webber MD CHEMISTRY ORDERABLES Performing Organization Address City/[facility]/ZIP Code [place] [address] (ABNORMAL) Creatinine (07/08/2017 4:00 AM EST) Analysis Performed At Patho logist Time Signature Creatinine 1.55 (H) 0.80 - [facility] 1.50 mg/dL [facility] Estimated GFR 44 (L) >=60 [facility] Comment: The reported eGFR should be multiplied b y 1.2 for patients. The MDRD is not an appropriate measure o f renal function for patients with body mass extremes or in patients with acute kidney failure. http://Domee/DHnkdep http://[employer].Midisolaire/DHMCnkf Specimen Anatomical Collection Method Collection Time Receive d Time (Source) Location / / Volume Laterality Blood specimen 07/08/2017 4:00 AM 017 4:09 (specimen) EST AM EST Resulting Agency Comment Spec In Lab Yuan Webber MD CHEMISTRY ORDERABLES Performing Organization Address City/[facility]/ZIP Code Phon e Number [address] BUN (07/08/2017 4:00 AM EST) P athologist Signature BUN 16 10 - 20 [facility] mg/dL [facility] Specimen Anatomical Collection Method Collection Time Receive d Time (Source) Location / / Volume Laterality Blood specimen 07/08/2017 4:00 AM 017 4:09 (specimen) EST AM EST Resulting Agency Comment Spec In Lab Yuan Webber MD CHEMISTRY ORDERABLES Performing Organization Address City/[facility]/ZIP Code Ph[place] [address] (ABNORMAL) POCT Glucose (07/08/2017 3:00 AM EST) P athologist Signature POC Glucose 273 (H) 65 - 199 [facility] mg/dL [facility] Comment: Supplemental ranges: <140 mg/dL before meals <180 mg/dL all other times of the day Specimen Anatomical Collection Method Collection Time Receive d Time (Source) Location / / Volume Laterality Blood specimen 07/08/2017 3:00 AM 017 3:00 (specimen) EST AM EST Daphne Shahid MD POINT OF CARE TEST ORDERABLE S Performing Organization Address City/[facility]/ZIP Code Phon e Number [address] (ABNORMAL) POCT Glucose (07/08/2017 1:57 AM EST) P athologist Signature POC Glucose 288 (H) 65 - 199 [facility] mg/dL [facility] Comment: Supplemental ranges: <140 mg/dL before meals <180 mg/dL all other times of the day Specimen Anatomical Collection Method Collection Time Receive d Time (Source) Location / / Volume Laterality Blood specimen 07/08/2017 1:57 AM 017 1:57 (specimen) EST AM EST Daphne Shahid MD POINT OF CARE TEST ORDERABLE S Performing Organization Address City/[facility]/ZIP Code Ph[place] [address] (ABNORMAL) POCT Glucose (07/08/2017 1:01 AM EST) athologist Signature POC Glucose 315 (H) 65 - 199 [facility] mg/dL [facility] Comment: Supplemental ranges: <140 mg/dL before meals <180 mg/dL all other times of the day Specimen Anatomical Collection Method Collection Time Receive d Time (Source) Location / / Volume Laterality Blood specimen 07/08/2017 1:01 AM 017 1:01 (specimen) EST AM EST Daphne Shahid MD POINT OF CARE TEST ORDERABLE S Performing Organization Address City/[facility]/ZIP Code [place] [address] (ABNORMAL) BLOOD GAS 2 ARTERIAL (07/08/2017 12:09 AM EST) athologist Signature pH Art 7.26 7.35 - [facility] (Critical) 7.[address] [facility] Comment: Noted by dental instrument maker. pCO2 Art 41 35 - 45 mmHg [facility] pO2 Art 96 85 - 104 mmHg [facility] HCO3 Art 17.7 (L) 20.0 - 26.0 mmol/L [facility] BE Art -9.4 (L) -3.0 - 3.0 mmol/L [facility] Hgb Blood Gas 12.4 (L) 13.7 - 16.5 gm/dL [facility] O2HB Art 94.7 94.0 - 97.0 % [facility] COHB Art 0.2 % [facility] Comment: Nonsmokers: 0.5-1.5% COHB Smokers: Variable, but usually less than 10% Toxic: 20-30% COHB Lethal: Greater than 60% COHB METHB Art 0.6 <=1.5 % [facility] Na Whole Blood 141 135 - 145 mmol/L [facility] K Whole Blood 3.5 3.5 - 5.0 mmol/L [facility] Comment: Please note: Patients with WBC >100,000 may have falsely elevated Potassium levels. Contact the Clinical Chemistry L aboratory if there are any questions. ICa Whole Blood 1.03 (L) 1.15 - 1.33 mmol/L [facility] Comment: Note: ??Total bilirubin higher than 20 m g/dL may lead to falsely low ionized calcium. CL Whole Blood 109 (H) 98 - 107 mmol/L [facility] Gluc Whole Bld 315 (H) 65 - 199 mg/dL [facility] Comment: Diabetes: >=200 mg/dL plus symp toms. Lactate WB 7.6 (Critical) 0.5 - 2.2 mmol/L [facility] Comment: Noted by dental instrument maker. FIO2 Art 40 % [facility] PF Ratio Art 240 [facility] Specimen Anatomical Collection Method Collection Time Receive d Time (Source) Location / / Volume Laterality Blood specimen Arterial Draw / 07/08/2017 12:09 2016 5:31 (specimen) Unknown AM EST AM EST Resulting Agency Comment Spec In Lab Samy Maldonado MD CHEMISTRY ORDERABLES Performing Organization Address City/State/[place] [address] (ABNORMAL) POCT Glucose (07/07/2017 10:56 PM EST) P athologist Signature POC Glucose 292 (H) 65 - 199 [facility] mg/dL [facility] Comment: Supplemental ranges: <140 mg/dL before meals <180 mg/dL all other times of the day Specimen Anatomical Collection Method Collection Time Receive d Time (Source) Location / / Volume Laterality Blood specimen 07/07/2017 10:56 7 (specimen) PM EST 10:56 PM EST Daphne Shahid MD POINT OF CARE TEST ORDERABLE S Performing Organization Address City/State/[place] [address] (ABNORMAL) BLOOD GAS 2 ARTERIAL (07/07/2017 10:04 PM EST) athologist Signature pH Art 7.22 7.35 - [facility] (Critical) 7.[address] [facility] Comment: Noted by dental instrument maker. pCO2 Art 42 35 - 45 mmHg [facility] pO2 Art 94 85 - 104 mmHg [facility] HCO3 Art 16.9 (L) 20.0 - 26.0 mmol/L [facility] BE Art -10.7 (L) -3.0 - 3.0 mmol/L [facility] Hgb Blood Gas 13.0 (L) 13.7 - 16.5 gm/dL [facility] O2HB Art 93.8 (L) 94.0 - 97.0 % [facility] COHB Art 0.7 % [facility] Comment: Nonsmokers: 0.5-1.5% COHB Smokers: Variable, but usually less than 10% Toxic: 20-30% COHB Lethal: Greater than 60% COHB METHB Art 0.7 <=1.5 % [facility] Na Whole Blood 140 135 - 145 mmol/L [facility] K Whole Blood 3.3 (L) 3.5 - 5.0 mmol/L [facility] Comment: Please note: Patients with WBC >100,000 may have falsely elevated Potassium levels. Contact the Clinical Chemistry L aboratory if there are any questions. ICa Whole Blood 1.07 (L) 1.15 - 1.33 mmol/L [facility] Comment: Note: ??Total bilirubin higher than 20 m g/dL may lead to falsely low ionized calcium. CL Whole Blood 107 98 - 107 mmol/L [facility] Gluc Whole Bld 304 (H) 65 - 199 mg/dL [facility] Comment: Diabetes: >=200 mg/dL plus symp toms. Lactate WB 8.2 (Critical) 0.5 - 2.2 mmol/L [facility] Comment: Noted by dental instrument maker. FIO2 Art 40 % [facility] PF Ratio Art 235 [facility] Specimen Anatomical Collection Method Collection Time Receive d Time (Source) Location / / Volume Laterality Blood specimen 07/07/2017 10:04 7 (specimen) PM EST 10:04 PM EST Daphne Shahid MD CHEMISTRY ORDERABLES Performing Organization Address [facility]/[place]IP [facility] Phon e Number [address] (ABNORMAL) Hemoglobin (07/07/2017 10:00 PM EST) P athologist Signature Hemoglobin 12.8 (L) 13.7 - [facility] 16.5 gm/dL [facility] Specimen Anatomical Collection Method Collection Time Receive d Time (Source) Location / / Volume Laterality Blood specimen 07/07/2017 10:00 7 (specimen) PM EST 10:13 PM EST Resulting Agency Comment Spec In Lab Yuan Webber MD HEMATOLOGY ORDERABLES Performing Organization Address City/[facility]/ZIP Code [place] [address] (ABNORMAL) Potassium (07/07/2017 10:00 PM EST) P athologist Signature Potassium 3.4 (L) 3.5 - 5.0 [facility] mmol/L [facility] Comment: Please [...] Organization Address City/State/ZIP Code [place] [address] (ABNORMAL) POCT Glucose (07/07/2017 8:49 PM EST) P athologist Signature POC Glucose 241 (H) 65 - 199 [facility] mg/dL [facility] Comment: Supplemental ranges: <140 mg/dL before meals <180 mg/dL all other times of the day Specimen Anatomical Collection Method Collection Time Receive d Time (Source) Location / / Volume Laterality Blood specimen 07/07/2017 8:49 PM 017 8:49 (specimen) EST PM EST Daphne Shahid MD POINT OF CARE TEST ORDERABLE S Performing Organization Address City/[facility]/ZIP Code Ph[place] [address] Prepare Albumin 5% in 250 mL (07/07/2017 8:03 PM EST) athologist Signature Dispensed? Yes [facility] Specimen Anatomical Collection Method Collection Time Receive d Time (Source) Location / / Volume Laterality Blood specimen No Charge / 07/07/2017 8:03 PM 017 8:04 (specimen) Unknown EST PM EST Resulting Agency Comment Spec In Lab Michael BROWN BLOOD BANK ORDERABLES Performing Organization Address City/[facility]/ZIP Code Ph[place] [address] EKG 12 Lead (07/07/2017 7:17 PM EST) Component Value Ref Range Test Analysis Performed Pathologis t Method Time At Signature Ventricular rate 75 BPM MUSE SYSTEM Atrial Rate 75 BPM MUSE SYSTEM P-R Interval 168 ms MUSE SYSTEM QRS Duration 104 ms MUSE SYSTEM Q-T Interval 462 ms MUSE SYSTEM QTC Calculated 515 ms MUSE SYSTEM (Bezet) Calculated P [place] 52 degrees MUSE SYSTEM Calculated R [place] -40 degrees MUSE SYSTEM Calculated T [place] 39 degrees MUSE SYSTEM INTERPRETATION Normal sinus [...] athologist Signature pH Art 7.21 7.35 - [facility] (Critical) 7.[address] [facility] Comment: Noted by dental instrument maker. pCO2 Art 50 (H) 35 - 45 mmHg [facility] pO2 Art 238 (H) 85 - 104 mmHg [facility] HCO3 Art 19.8 (L) 20.0 - 26.0 mmol/L [facility] BE Art -8.1 (L) -3.0 - 3.0 mmol/L [facility] Hgb Blood Gas 12.8 (L) 13.7 - 16.5 gm/dL [facility] O2HB Art 97.5 (H) 94.0 - 97.0 % [facility] COHB Art 0.5 % [facility] Comment: Nonsmokers: 0.5-1.5% COHB Smokers: Variable, but usually less than 10% Toxic: 20-30% COHB Lethal: Greater than 60% COHB METHB Art 0.7 <=1.5 % [facility] Na Whole Blood 140 135 - 145 mmol/L [facility] K Whole Blood 3.0 (Critical) 3.5 - 5.0 mmol/L [facility] Comment: Noted by dental instrument maker. Please note: Patients with WBC >100,000 may have falsely elevated Potassium levels. Contact the Clinical Chemistry L aboratory if there are any questions. ICa Whole Blood 1.07 (L) 1.15 - 1.33 mmol/L [facility] Comment: Note: ??Total bilirubin higher than 20 m g/dL may lead to falsely low ionized calcium. CL Whole Blood 107 98 - 107 mmol/L [facility] Gluc Whole Bld 270 (H) 65 - 199 mg/dL [facility] Comment: Diabetes: >=200 mg/dL plus symp toms. Lactate WB 4.9 (Critical) 0.5 - 2.2 mmol/L [facility] Comment: Noted by dental instrument maker. FIO2 Art 100 % [facility] PF Ratio Art 238 [facility] Specimen Anatomical Collection Method Collection Time Receive d Time (Source) Location / / Volume Laterality Blood specimen 07/07/2017 6:57 PM 017 6:57 (specimen) EST PM EST Daphne Shahid MD CHEMISTRY ORDERABLES Performing Organization Address City/State/[place] [address] (ABNORMAL) BLOOD GAS 2 ARTERIAL (07/07/2017 5:31 PM EST) athologist Signature pH Art 7.29 7.35 - [facility] (Critical) 7.[address] [facility] [facility] Comment: Noted by dental instrument maker. pCO2 Art 48 (H) 35 - 45 mmHg [facility] pO2 Art 137 (H) 85 - 104 mmHg [facility] HCO3 Art 22.4 20.0 - 26.0 mmol/L [facility] BE Art -4.3 (L) -3.0 - 3.0 mmol/L [facility] Hgb Blood Gas 10.0 (L) 13.7 - 16.5 gm/dL [facility] O2HB Art 97.3 (H) 94.0 - 97.0 % [facility] COHB Art 0.3 % [facility] Comment: Nonsmokers: 0.5-1.5% COHB Smokers: Variable, but usually less than 10% Toxic: 20-30% COHB Lethal: Greater than 60% COHB METHB Art 0.3 <=1.5 % [facility] Na Whole Blood 132 (L) 135 - 145 mmol/L [facility] K Whole Blood 4.0 3.5 - 5.0 mmol/L [facility] Comment: Please note: Patients with WBC >100,000 may have falsely elevated Potassium levels. Contact the Clinical Chemistry L aboratory if there are any questions. ICa Whole Blood 1.14 (L) 1.15 - 1.33 mmol/L [facility] Comment: Note: ??Total bilirubin higher than 20 m g/dL may lead to falsely low ionized calcium. CL Whole Blood 105 98 - 107 mmol/L [facility] Gluc Whole Bld [...] Shahid MD CHEMISTRY ORDERABLES Performing Organization Address City/[facility]/ZIP Code Phon e Number [address] Fibrinogen (07/07/2017 5:30 PM EST) P athologist Signature Fibrinogen 224 180 - 510 [facility] mg/dL [facility] Comment: Called by: JEET, Read [...] Perez MD HEMATOLOGY ORDERABLES Performing Organization Address City/[facility]/ZIP [facility] Phon e Number [address] APTT (07/07/2017 5:30 PM EST) P athologist Signature PTT 30 25 - [address] [facility] Comment: The recommended therapeutic range for fu ll dose, unfractionated heparin at [facility] is 80 ? 114 seconds. [...] Perez MD HEMATOLOGY ORDERABLES Performing Organization Address City/[facility]/ZIP Code [place] [address] (ABNORMAL) Prothrombin Time (07/07/2017 [...] Perez MD HEMATOLOGY ORDERABLES Performing Organization Address City/[facility]/[place] [address] (ABNORMAL) Hemogram (07/07/2017 5:30 PM EST) P athologist Signature WBC 19.6 (H) 4.0 - 9.5 [facility] x10(3)/[facility] LABORATORY RBC 3.08 (L) 4.58 - [facility] 5.54 [facility] x10(6)/[facility]ORATORY Hemoglobin 9.2 (L) 13.7 - [facility] 16.5 gm/dL [facility] Hematocrit 28.0 (L) 40.5 - [facility] 48.5 % [facility] Comment: This result has been called to MONICA MORAN by DONALD GROSSMAN on 07 07 2017 at 1759, and has been read back. MCV 90.9 82.9 - 93.[address] [facility] MCH 29.9 27.5 - 32.[address] [facility] MCHC 32.9 32.0 - 35.7 gm/dL [facility] Platelets 155 145 - 357 x10(3)/[facility] LABORATORY RDWSD 46.5 (H) 36.0 - 45.0 [facility] LABORATORY RDWCV 14.1 (H) 11.4 - 13.8 % [facility] MPV 9.5 7.6 - 12.9 [facility] LABORATORY nRBC % Auto 0.0 % [facility] nRBC Abs Auto 0.000 0.000 - 0.000 x10(3)/[facility] LABORATORY Specimen Anatomical Collection Method Collection Time Receive d Time (Source) Location / / Volume Laterality Blood specimen 07/07/2017 5:30 PM 017 5:34 (specimen) EST PM EST Resulting Agency Comment Spec In Lab Yifan Perez MD HEMATOLOGY ORDERABLES Performing Organization Address City/State/[place] [address] Prepare Platelets, Apheresis (07/07/2017 5:00 PM EST) P athologist Signature Dispensed? Yes [facility] Specimen Anatomical Collection Method Collection Time Receive d Time (Source) Location / / Volume Laterality Blood specimen 07/07/2017 5:00 PM 017 4:58 (specimen) EST PM EST Daphne Shahid MD BLOOD BANK ORDERABLES Performing Organization Address City/State/[place] [address] Platelet count (07/07/2017 4:55 PM EST) P athologist Signature Platelets 177 145 - 357 [facility] x10(3)/[facility] LABORATORY Plat Immature 1.5 0.0 - 7.4 [facility] % % [facility] Comment: Limitation of the Immature Platelet Frac tion (IPF)-May be less reliable when the platelet count is less than 71g945/u L due to statistical imprecision. The IPF [...] in a decreased state of production. References: [employer] The Clinical Value of the Immature Platelet Fraction (IPF) in Cell Recovery Document Number 10-1143 12/2010 [employer] The Role of the Imm ature [...] Organization Address City/State/[place] [address] [facility] LABORATORY Drive (ABNORMAL) Hemoglobin and Hematocrit, blood (07/07/2017 4:55 PM EST) P athologist Signature Hemoglobin 9.1 (L) 13.7 - 16.5 [facility] gm/dL [facility] Comment: This result has been called to MALKA MORAN by DONALD GROSSMAN on 07 07 2017 at 1734, and has been read back. Hematocrit 26.6 (L) 40.5 - 48.5 % [facility] Comment: This result has been [...] Organization Address City/State/[place] [address] (ABNORMAL) BLOOD GAS 2 ARTERIAL (07/07/2017 4:38 PM EST) Analysis Performed At Patho logist Time Signature pH Art 7.37 7.35 - [facility] [address] [facility] [facility] pCO2 Art 44 35 - 45 [facility] mmHg [facility] pO2 Art 322 (H) 85 - 104 [facility] LABORATORY HCO3 Art 24.9 20.0 - [facility] 26.0 [facility] mmol/L [facility] BE Art -0.4 -3.0 - 3.0 [facility] mmol/L [facility] Hgb Blood Gas 10.1 (L) 13.7 - [facility] 16.5 gm/dL [facility] O2HB Art 98.7 (H) 94.0 - [facility] 97.0 % [facility] COHB Art 0.1 % [facility] Comment: Nonsmokers: 0.5-1.5% COHB Smokers: Variable, but usually less than 10% Toxic: 20-30% COHB Lethal: Greater than 60% COHB METHB Art 0.3 <=1.5 % [facility] Na Whole Blood 130 (L) 135 - 145 mmol/L [facility] K Whole Blood 5.7 (H) 3.5 - 5.0 mmol/L [facility] Comment: Please note: Patients with WBC >100,000 may have falsely elevated Potassium levels. Contact the Clinical Chemistry L aboratory if there are any questions. ICa Whole Blood 0.89 (Critical) 1.15 - 1.33 mmol/L [facility] Comment: Noted by dental instrument maker. Note: ??Total bilirubin higher than 20 m g/dL may lead to falsely low ionized calcium. CL Whole Blood 101 98 - 107 mmol/L [facility] Gluc Whole Bld [...] Organization Address City/State/[place] [address] (ABNORMAL) BLOOD GAS 2 VENOUS (07/07/2017 4:06 PM EST) Analysis Performed At Patho logist Time Signature pH Cody 7.31 (L) 7.32 - [facility] [address] [facility] [facility] pCO2 Cody 47 41 - 51 [facility] LABORATORY pO2 Cody 53 (H) 25 - 40 [facility] LABORATORY HCO3 Cody 22.7 mmol/L [facility] BE Cody -3.7 mmol/L [facility] Hgb Blood Gas 10.2 (L) 13.7 - [facility] 16.5 gm/dL [facility] O2HB Cody 81.0 % [facility] COHB Cody 1.0 % [facility] Comment: Nonsmokers: 0.5-1.5% COHB Smokers: Variable, but usually less than 10% Toxic: 20-30% COHB Lethal: Greater than 60% COHB METHB Cody 0.3 <=1.5 % [facility] Na Whole Blood 132 (L) 135 - 145 mmol/L [facility] K Whole Blood 5.3 (H) 3.5 - 5.0 mmol/L [facility] Comment: Please note: Patients with WBC >100,000 may have falsely elevated Potassium levels. Contact the Clinical Chemistry L aboratory if there are any questions. ICa Whole Blood 0.90 (Critical) 1.15 - 1.33 mmol/L [facility] Comment: Noted by dental instrument maker. Note: ??Total bilirubin higher than 20 m g/dL may lead to falsely low ionized calcium. CL Whole Blood 100 98 - 107 mmol/L [facility] Gluc Whole Bld 231 (H) 65 - 199 mg/dL [facility] Comment: Diabetes: >=200 mg/dL plus symp toms Lactate WB 1.1 0.5 - 2.2 mmol/L [facility] BGas Source Venous [facility] Specimen Anatomical Collection Method Collection Time Receive d Time (Source) Location / / Volume Laterality Blood specimen 07/07/2017 4:06 PM 017 4:06 (specimen) EST PM EST Daphne Shahid MD CHEMISTRY ORDERABLES Performing Organization Address City/State/[place] [address] (ABNORMAL) BLOOD GAS 2 ARTERIAL (07/07/2017 4:05 PM EST) Analysis Performed At Patho logist Time Signature pH Art 7.36 7.35 - [facility] [address] [facility] [facility] pCO2 Art 40 35 - 45 [facility] mmHg [facility] pO2 Art 282 (H) 85 - 104 [facility] LABORATORY HCO3 Art 22.1 20.0 - [facility] 26.0 [facility] mmol/L [facility] BE Art -3.4 (L) -3.0 - 3.0 [facility] mmol/L [facility] Hgb Blood Gas 10.2 (L) 13.7 - [facility] 16.5 gm/dL [facility] O2HB Art 98.4 (H) 94.0 - [facility] 97.0 % [facility] COHB Art 0.3 % [facility] Comment: Nonsmokers: 0.5-1.5% COHB Smokers: Variable, but usually less than 10% Toxic: 20-30% COHB Lethal: Greater than 60% COHB METHB Art 0.3 <=1.5 % [facility] Na Whole Blood 131 (L) 135 - 145 mmol/L [facility] K Whole Blood 5.4 (H) 3.5 - 5.0 mmol/L [facility] Comment: Please note: Patients with WBC >100,000 may have falsely elevated Potassium levels. Contact the Clinical Chemistry L aboratory if there are any questions. ICa Whole Blood 0.86 (Critical) 1.15 - 1.33 mmol/L [facility] Comment: Noted by dental instrument maker. Note: ??Total bilirubin higher than 20 m g/dL may lead to falsely low ionized calcium. CL Whole Blood 101 98 - 107 mmol/L [facility] Gluc Whole Bld [...] Organization Address City/State/[place] [address] (ABNORMAL) BLOOD GAS 2 ARTERIAL (07/07/2017 2:29 PM EST) Analysis Performed At Patho logist Time Signature pH Art 7.43 7.35 - [facility] [address] [facility] [facility] pCO2 Art 36 35 - 45 [facility] LABORATORY pO2 Art 221 (H) 85 - 104 [facility] LABORATORY HCO3 Art 23.2 20.0 - [facility] 26.0 [facility] mmol/L [facility] BE Art -1.2 -3.0 - 3.0 [facility] mmol/L [facility] Hgb Blood Gas 13.9 13.7 - [facility] 16.5 gm/dL [facility] O2HB Art 97.8 (H) 94.0 - [facility] 97.0 % [facility] COHB Art 1.1 % [facility] Comment: Nonsmokers: 0.5-1.5% COHB Smokers: Variable, but usually less than 10% Toxic: 20-30% COHB Lethal: Greater than 60% COHB METHB Art 0.3 <=1.5 % [facility] Na Whole Blood 139 135 - 145 mmol/L [facility] K Whole Blood 4.0 3.5 - 5.0 mmol/L [facility] Comment: Please note: Patients with WBC >100,000 may have falsely elevated Potassium levels. Contact the Clinical Chemistry L aboratory if there are any questions. ICa Whole Blood 1.11 (L) 1.15 - 1.33 mmol/L [facility] Comment: Note: ??Total bilirubin higher than 20 m g/dL may lead to falsely low ionized calcium. CL Whole Blood 104 98 - 107 mmol/L [facility] Gluc Whole Bld 184 65 [...] Organization Address City/State/[place] [address] Prepare Coag Factors (Non-Hemophilia) (07/07/2017 1:25 PM EST) P athologist Signature Dispensed? Yes [facility] Specimen Anatomical Collection Method Collection Time Receive d Time (Source) Location / / Volume Laterality Blood specimen 07/07/2017 1:25 PM 017 1:21 (specimen) EST PM EST Daphne Shahid MD BLOOD BANK ORDERABLES Performing Organization Address City/State/ZIP Code Phon e Number [address] Prepare RBC (07/07/2017 1:10 PM EST) P athologist Signature Dispensed? Yes [facility] Specimen Anatomical Collection Method Collection Time Receive d Time (Source) Location / / Volume Laterality Blood specimen 07/07/2017 1:10 PM 017 1:05 (specimen) EST PM EST Daphne Shahid MD BLOOD BANK ORDERABLES Performing Organization Address City/State/ZIP Code Phon e Number [address] POCT Glucose (07/07/2017 11:56 AM EST) P athologist Signature POC Glucose 188 65 - 199 [facility] mg[facility]dL [facility] Comment: Supplemental [...] Address City/State/ZIP Code Phon e Number [address] POCT Glucose (07/07/2017 11:05 AM EST) P athologist Signature POC Glucose 168 65 - 199 [facility] mg/dL [facility] Comment: Supplemental [...] Address City/State/ZIP Code Phon e Number [address] POCT Glucose (07/07/2017 10:02 AM EST) athologist Signature POC Glucose 191 65 - 199 [facility] mg/dL [facility] [...] Address City/State/ZIP Code Phon e Number [address] POCT Glucose (07/07/2017 7:53 AM EST) athologist Signature POC Glucose 178 65 - 199 [facility] mg/dL [facility] Comment: Supplemental ranges: <140 mg/dL before meals <180 mg/dL all other times of the day Specimen Anatomical Collection Method Collection Time Receive d Time (Source) Location / / Volume Laterality Blood specimen 07/07/2017 7:53 AM 017 7:53 (specimen) EST AM EST Daphne Shahid MD POINT OF CARE TEST ORDERABLE S Performing Organization Address City/State/ZIP Code [place] [address] POCT Glucose (07/07/2017 7:03 AM EST) athologist Signature POC Glucose 188 65 - 199 [facility] RYAN mg/dL [facility] Comment: [...] Organization Address City/State/ZIP Code [place] [address] (ABNORMAL) POCT Glucose (07/07/2017 6:17 AM EST) athologist Signature POC Glucose 207 (H) 65 - 199 [facility] mg/dL [facility] Comment: Supplemental [...] City/State/ZIP Code Phon e Number [place] [id number] [address] Differential, Automated (07/07/2017 5:15 AM EST) athologist [facility] Neutrophils % 69.7 % [facility] Neutr Abs (ANC) 5.32 1.70 - [facility] 6.10 [facility] x10(3)/[facility] LABORATORY Lymphocytes % 16.3 % [facility] Lymphocytes Abs 1.2 0.9 - 3.2 [facility] x10(3)/[facility] LABORATORY Monocytes % 10.5 % [facility] Monocyte Abs 0.8 0.3 - 0.9 [facility] x10(3)/[facility] LABORATORY Eosinophils % 2.5 % [facility] Eosinophils Abs 0.2 0.0 - 0.4 [facility] x10(3)/[facility] LABORATORY Basophils % 0.7 % [facility] Basophils Abs 0.0 0.0 - 0.1 [facility] x10(3)/[facility] LABORATORY Immature Gran % 0.30 % ST. [...] Melisa Gran Abs 0.02 0.00 - 0.04 x10(3)/[facility] Y [facility] LABOR[facility]ORY Specimen Anatomical Collection Method Collection Time Receive d Time (Source) Location / / Volume Laterality Blood specimen 07/07/2017 5:15 AM 017 5:34 (specimen) EST AM EST Resulting Agency Comment Spec In Lab Daphne Shahid MD HEMATOLOGY ORDERABLES Performing Organization Address City/State/[place] [address] (ABNORMAL) Hemogram (07/07/2017 5:15 AM EST) Analysis Performed At Patho logist Time Signature WBC 7.6 4.0 - 9.5 [facility] x10(3)/[facility] LABORATORY RBC 4.82 4.58 - [facility] 5.54 [facility] x10(6)/[facility] LABORATORY Hemoglobin 14.4 13.7 - [facility] 16.5 gm/dL [facility] Hematocrit 42.1 40.5 - [facility] 48.5 % [facility] MCV 87.3 82.9 - [facility] 93.1 [facility] LABORATORY MCH 29.9 27.5 - [facility] RYAN 32.[address] [facility] MCHC 34.2 32.0 - [facility] 35.7 gm/dL [facility] Platelets 188 145 - 357 [facility] x10(3)/[facility] LABORATORY RDWSD 45.1 (H) 36.0 - [facility] 45.0 [facility] LABORATORY RDWCV 14.3 (H) 11.4 - [facility] RYAN 13.8 % [facility] MPV 9.4 7.6 - 12.9 [facility] LABORATORY nRBC % Auto 0.0 % [facility] nRBC Abs Auto 0.000 0.000 - [facility] RYAN 0.000 [facility] x10(3)/[facility] LABORATORY Specimen Anatomical Collection Method Collection Time Receive d Time (Source) Location / / Volume Laterality Blood specimen 07/07/2017 5:15 AM 017 5:34 (specimen) EST AM EST Resulting Agency Comment Spec In Lab Daphne Shahid MD HEMATOLOGY ORDERABLES Performing Organization Address City/State/ZIP Code [place] [address] (ABNORMAL) APTT (07/07/2017 5:15 AM EST) athologist Signature PTT 69 (H) 25 - [address] [facility] Comment: The recommended therapeutic range for fu ll dose, unfractionated heparin at [facility] is 80 ? 114 seconds. [...] Shahid MD HEMATOLOGY ORDERABLES Performing Organization Address City/[facility]/ZIP Code Ph[place] [address] Magnesium (07/07/2017 5:15 AM EST) athologist Signature Magnesium 0.94 0.69 - 1.07 [facility] mmol/L [facility] Specimen Anatomical Collection Method Collection Time Receive d Time (Source) Location / / Volume Laterality Blood specimen 07/07/2017 5:15 AM 017 5:34 (specimen) EST AM EST Resulting Agency Comment Spec In Lab Daphne Shahid MD CHEMISTRY ORDERABLES Performing Organization Address City/[facility]/ZIP Code Ph[place] [address] (ABNORMAL) Basic Metabolic Panel (non-fasting) (07/07/2017 5:15 AM EST) P athologist Signature Glucose Lvl 203 (H) 65 - 199 [facility] mg/dL [facility] Comment: Diabetes: >=200 mg/dL plus symp toms BUN 15 10 - 20 mg/dL [facility] Creatinine 1.09 0.80 - 1.50 mg/dL [facility] [...] 107 mmol/L [facility] CO2 26 22 - 31 mmol/L [facility] Anion Gap 14 5 - 15 mmol/L [facility] Calcium 8.6 8.5 - 10.5 mg/dL [facility] LABOR[facility]ORY Estimated GFR >60 >=60 [facility] Comment: The reported eGFR should be multiplied b y 1.2 for patients. The MDRD is not an appropriate measure o f renal function for patients with body mass extremes or in patients with acute kidney failure. http://Domee/DHnkdep http://Domee/DHMCnkf Specimen Anatomical Collection Method Collection Time Receive d Time (Source) Location / / Volume Laterality Blood specimen 07/07/2017 5:15 AM 017 5:34 (specimen) EST AM EST Resulting Agency Comment Spec In Lab Daphne Shahid MD CHEMISTRY ORDERABLES Performing Organization Address City/State/[place] [address] (ABNORMAL) Cardiac Enzymes (LEB/CGP) (07/07/2017 5:15 AM EST) P athologist Signature Troponin-T 2.07 (H) 0.00 - [facility] 0.00 ng/mL [facility] Comment: [...] additional sample may be indicated. Reference: Third [place] Definition of Myocardial Infarction. Journal of the [place] [employer] 2012;60:1581-98 CK, Total 88 0 - 200 unit/L [facility] Specimen Anatomical Collection Method Collection Time Receive d Time (Source) Location / / Volume Laterality Blood specimen 07/07/2017 5:15 AM 017 5:34 (specimen) EST AM EST Resulting Agency Comment Spec In Lab Daphne Shahid MD CHEMISTRY ORDERABLES Performing Organization Address City/[facility]/ZIP [facility] Phon e Number [address] POCT Glucose (07/07/2017 5:01 AM EST) athologist Signature POC Glucose 182 65 - 199 [facility] mg/dL [facility] Comment: Supplemental ranges: <140 mg/dL before meals <180 mg/dL all other times of the day Specimen Anatomical Collection Method Collection Time Receive d Time (Source) Location / / Volume Laterality Blood specimen 07/07/2017 5:01 AM 017 5:01 (specimen) EST AM EST Daphne Shahid MD POINT OF CARE TEST ORDERABLE S Performing Organization Address City/[facility] Phon e Number [address] POCT Glucose (07/07/2017 4:08 AM EST) athologist Signature POC Glucose 199 65 - 199 [facility] Comment: Supplemental [...] Address City/State/ZIP Code Phon e Number [address] POCT Glucose (07/07/2017 3:03 AM EST) athologist Signature POC Glucose 188 65 - 199 [place] mg/dL [facility] [...] Organization Address City/State/ZIP Code Ph[place] [address] (ABNORMAL) POCT Glucose (07/07/2017 2:08 AM EST) athologist Signature POC Glucose 200 (H) 65 - 199 [place] mg/dL [facility] Comment: Supplemental [...] Address City/State/ZIP Code Phon e Number [address] (ABNORMAL) POCT Glucose (07/07/2017 1:31 AM EST) P athologist Signature POC Glucose 209 (H) 65 - 199 [place] mg/dL [facility] Comment: Supplemental ranges: <140 mg/dL before meals <180 mg/dL all other times of the day Specimen Anatomical Collection Method Collection Time Receive d Time (Source) Location / / Volume Laterality Blood specimen 07/07/2017 1:31 AM 017 1:31 (specimen) EST AM EST Daphne Shahid MD POINT OF CARE TEST ORDERABLE S Performing Organization Address City/State/[place] [address] XR Chest PA or [...] Signature POC Glucose 161 65 - 199 [facility] mg/dL [facility] Comment: Supplemental ranges: <140 mg/dL before meals <180 mg/dL all other times of the day Specimen Anatomical Collection Method Collection Time Receive d Time (Source) Location / / Volume Laterality Blood specimen 07/07/2017 12:07 7 (specimen) AM EST 12:07 AM EST Daphne Shahid MD POINT OF CARE TEST ORDERABLE S Performing Organization Address City/State/ZIP Code [place] [address] (ABNORMAL) APTT (07/07/2017 12:00 AM EST) athologist Signature PTT 103 (H) 25 - [address] [facility] Comment: The recommended therapeutic range for fu ll dose, unfractionated heparin at [facility] is 80 ? 114 seconds. [...] Shahid MD HEMATOLOGY ORDERABLES Performing Organization Address City/[facility]/ZIP Code Ph[place] [address] POCT Glucose (07/06/2017 9:55 PM EST) athologist Signature POC Glucose 109 65 - 199 [facility] Comment: Supplemental ranges: <140 mg/dL before meals <180 mg/dL all other times of the day Specimen Anatomical Collection Method Collection Time Receive d Time (Source) Location / / Volume Laterality Blood specimen 07/06/2017 9:55 PM 017 9:55 (specimen) EST PM EST Daphne Shahid MD POINT OF CARE TEST ORDERABLE S Performing Organization Address City/[facility]/ZIP Code Ph[place] [address] POCT Glucose (07/06/2017 9:04 PM EST) athologist Signature POC Glucose 120 65 - 199 [facility] Comment: Supplemental ranges: <140 mg/dL before meals <180 mg/dL all other times of the day Specimen Anatomical Collection Method Collection Time Receive d Time (Source) Location / / Volume Laterality Blood specimen 07/06/2017 9:04 PM 017 9:04 (specimen) EST PM EST Daphne Shahid MD POINT OF CARE TEST ORDERABLE S Performing Organization Address City/[facility]/ZIP Code Phon [place] [address] POCT Glucose (07/06/2017 7:45 PM EST) athologist Signature POC Glucose 158 65 - 199 [facility] mg/dL [facility] Comment: Supplemental ranges: <140 mg/dL before meals <180 mg/dL all other times of the day Specimen Anatomical Collection Method Collection Time Receive d Time (Source) Location / / Volume Laterality Blood specimen 07/06/2017 7:45 PM 017 7:45 (specimen) EST PM EST Daphne Shahid MD POINT OF CARE TEST ORDERABLE S Performing Organization Address City/[facility]/ZIP Code Ph[place] [address] Potassium (07/06/2017 7:40 PM EST) athologist Signature Potassium 3.9 3.5 - 5.0 [facility] mmol/L [facility] Comment: Please [...] Shahid MD CHEMISTRY ORDERABLES Performing Organization Address City/[facility]/ZIP Code Ph[place] [address] (ABNORMAL) Cardiac Enzymes (LEB/CGP) (07/06/2017 7:40 PM EST) athologist Signature Troponin-T 2.27 (H) 0.00 - [facility] 0.00 ng/mL [facility] Comment: [...] additional sample may be indicated. Reference: Third [place] Definition of Myocardial Infarction. Journal of the [place] [employer] 2012;60:1581-98 CK, Total 93 0 - 200 unit/L [facility] Specimen Anatomical Collection Method Collection Time Receive d Time (Source) Location / / Volume Laterality Blood specimen 07/06/2017 7:40 PM 017 7:52 (specimen) EST PM EST Resulting Agency Comment Spec In Lab Daphne Shahid MD CHEMISTRY ORDERABLES Performing Organization Address City/State/[place] [address] (ABNORMAL) POCT Glucose (07/06/2017 7:13 PM EST) athologist Signature POC Glucose 200 (H) 65 - 199 [facility] mg/dL [facility] Comment: Supplemental ranges: <140 mg/dL before meals <180 mg/dL all other times of the day Specimen Anatomical Collection Method Collection Time Receive d Time (Source) Location / / Volume Laterality Blood specimen 07/06/2017 7:13 PM 017 7:13 (specimen) EST PM EST Daphne Shahid MD POINT OF CARE TEST ORDERABLE S Performing Organization Address City/[facility]/ZIP Code Ph[place] [address] (ABNORMAL) APTT (07/06/2017 6:15 PM EST) athologist Signature PTT 94 (H) 25 - [address] [facility] Comment: The recommended therapeutic range for fu ll dose, unfractionated heparin at [facility] is 80 ? 114 seconds. [...] Shahid MD HEMATOLOGY ORDERABLES Performing Organization Address City/[facility]/ZIP Code Ph[place] [address] (ABNORMAL) POCT Glucose (07/06/2017 6:03 PM EST) athologist Signature POC Glucose 236 (H) 65 - 199 [facility] mg[facility]dL [facility] Comment: Supplemental ranges: <140 mg/dL before meals <180 mg/dL all other times of the day Specimen Anatomical Collection Method Collection Time Receive d Time (Source) Location / / Volume Laterality Blood specimen 07/06/2017 6:03 PM 017 6:03 (specimen) EST PM EST Daphne Shahid MD POINT OF CARE TEST ORDERABLE S Performing Organization Address City/[facility]/ZIP Code Ph[place] [address] (ABNORMAL) POCT Glucose (07/06/2017 5:01 PM EST) athologist Signature POC Glucose 235 (H) 65 - 199 [facility] mg/dL [facility] Comment: [...] Organization Address City/State/ZIP Code Ph[place] [address] (ABNORMAL) POCT Glucose (07/06/2017 [...] CARE TEST ORDERABLE S Performing Organization Address City/[facility]/ZIP Code Ph[place] [address] POCT Glucose (07/06/2017 2:59 PM EST) athologist Signature POC Glucose 178 65 - 199 [place] mg/dL [facility] [...] Organization Address City/State/ZIP Code Ph[place] [address] (ABNORMAL) Cardiac Enzymes (LEB/CGP) [...] additional sample may be indicated. Reference: Third [place] Definition of Myocardial Infarction. Journal of the [place] [employer] 2012;60:1581-98 CK, Total 101 0 - 200 unit/L [facility] Specimen Anatomical Collection Method Collection Time Receive d Time (Source) Location / / Volume Laterality Blood specimen 07/06/2017 2:10 PM 017 2:26 (specimen) EST PM EST Resulting Agency Comment Spec In Lab Daphne Shahid MD CHEMISTRY ORDERABLES Performing Organization Address City/State/[place] [address] POCT Glucose (07/06/2017 2:08 PM EST) P athologist Signature POC Glucose 192 65 - 199 [facility] mg/dL [facility] Comment: Supplemental [...] Address City/State/ZIP Code Phon e Number [address] POCT Glucose (07/06/2017 1:04 PM EST) P athologist Signature POC Glucose 162 65 - 199 [facility] Comment: Supplemental ranges: <140 mg/dL before meals <180 mg/dL all other times of the day Specimen Anatomical Collection Method Collection Time Receive d Time (Source) Location / / Volume Laterality Blood specimen 07/06/2017 1:04 PM 017 1:04 (specimen) EST PM EST Daphne Shahid MD POINT OF CARE TEST ORDERABLE S Performing Organization Address City/[facility]/ZIP Code Phon e Number [address] POCT Glucose (07/06/2017 12:05 PM EST) P athologist Signature POC Glucose 196 65 - 199 [facility] Comment: Supplemental ranges: <140 mg/dL before meals <180 mg/dL all other times of the day Specimen Anatomical Collection Method Collection Time Receive d Time (Source) Location / / Volume Laterality Blood specimen 07/06/2017 12:05 7 (specimen) PM EST 12:05 PM EST Daphne Shahid MD POINT OF CARE TEST ORDERABLE S Performing Organization Address City/State/ZIP Code Ph[place] [address] EKG 12 Lead (07/06/2017 12:00 PM EST) Component Value Ref Range Test Analysis Performed Pathologis t Method Time At Signature Ventricular rate 91 BPM MUSE SYSTEM Atrial Rate 91 BPM MUSE SYSTEM P-R Interval 140 ms MUSE SYSTEM QRS Duration 94 ms MUSE SYSTEM Q-T Interval 394 ms MUSE SYSTEM QTC Calculated 484 ms MUSE SYSTEM (Bezet) Calculated P [place] 36 degrees MUSE SYSTEM Calculated R [place] -19 degrees MUSE SYSTEM Calculated T [place] 104 degrees MUSE SYSTEM INTERPRETATION Normal sinus rhythm MUSE SYSTEM 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) ST & T wave abnormality, consider lateral ischemia Abnormal ECG When compared with ECG of 05-JUL-2017 20:39, No significant change was found Confirmed by MD Luci, Taurus Braun ([id number]) on 07/06/2017 5:07:33 PM Specimen Anatomical Collection Method Collection Time Receive d Time (Source) Location / / Volume Laterality 07/06/2017 12:00 07/06/2017 5:07 PM EST PM EST Daphne Shahid MD ECG ORDERABLES Performing Organization Address City/State/ZIP Code Phon e Number MUSE SYSTEM ABORH Recheck Status (07/06/2017 12:00 PM EST) Patholo gist Method Time Signature ABORH Type Completed [facility] LABORATORY Specimen Anatomical Collection Method Collection Time Receive d Time (Source) Location / / Volume Laterality Blood specimen 07/06/2017 12:00 7 (specimen) PM EST 12:24 PM EST Resulting Agency Comment Spec In Lab Daphne Shahid MD BLOOD BANK ORDERABLES Performing Organization Address City/[facility]/ZIP Code Ph[place] [address] Antibody screen (07/06/2017 12:00 PM EST) [facility] Method Time Signature Ab Screen Negative [facility] LABORATORY Expires at 07/09/2017 [facility] 235 on: [facility] Specimen Anatomical Collection Method Collection Time Receive d Time (Source) Location / / Volume Laterality Blood specimen 07/06/2017 12:00 7 (specimen) PM EST 12:24 PM EST Resulting Agency Comment Spec In Lab Daphne Shahid MD BLOOD BANK ORDERABLES Performing Organization Address City/[facility]/ZIP Code Phon [place] [address] ABO/Rh Typing (07/06/2017 12:00 [...] Organization Address City/State/ZIP Code Ph[place] [address] Prothrombin Time (07/06/2017 11:24 AM EST) athologist Signature PT 13.3 11.8 - 14.0 [facility] LABORATORY INR 1.0 0.9 - 1.1 [facility] [...] Shahid MD HEMATOLOGY ORDERABLES Performing Organization Address City/[facility]/ZIP Code Ph[place] [address] (ABNORMAL) APTT (07/06/2017 11:24 AM EST) athologist Signature PTT 52 (H) 25 - [address] [facility] Comment: The recommended therapeutic range for fu ll dose, unfractionated heparin at [facility] is 80 ? 114 seconds. [...] Address City/State/ZIP Code Phon e Number [address] POCT Glucose (07/06/2017 11:02 AM EST) athologist Signature POC Glucose 187 65 - 199 [place] mg/dL [facility] [...] Address City/State/ZIP Code Phon e Number [address] POCT Glucose (07/06/2017 10:18 AM EST) athologist Signature POC Glucose 193 65 - 199 [facility] Comment: Supplemental [...] Address City/State/ZIP Code Phon e Number [address] POCT Glucose (07/06/2017 9:25 AM EST) athologist Signature POC Glucose 182 65 - 199 [place] mg/dL [facility] [...] Organization Address City/State/ZIP Code Ph[place] [address] (ABNORMAL) Cardiac Enzymes (LEB/CGP) (07/06/2017 8:10 AM EST) athologist Signature Troponin-T 2.26 (H) 0.00 - [facility] 0.00 ng/mL [facility] Comment: [...] additional sample may be indicated. Reference: Third [place] Definition of Myocardial Infarction. Journal of the [place] [employer] 2012;60:1581-98 CK, Total 124 0 - 200 unit/L [facility] Specimen Anatomical Collection Method Collection Time Receive d Time (Source) Location / / Volume Laterality Blood specimen 07/06/2017 8:10 AM 017 8:23 (specimen) EST AM EST Resulting Agency Comment Spec In Lab Daphne Shahid MD CHEMISTRY ORDERABLES Performing Organization Address City/State/[place] [address] Magnesium (07/06/2017 8:10 AM EST) athologist Signature Magnesium 0.84 0.69 - 1.07 [facility] mmol/L [facility] Specimen Anatomical Collection Method Collection Time Receive d Time (Source) Location / / Volume Laterality Blood specimen 07/06/2017 8:10 AM 017 8:21 (specimen) EST AM EST Resulting Agency Comment Spec In Lab Daphne Shahid MD CHEMISTRY ORDERABLES Performing Organization Address City/[facility]/[place] [address] (ABNORMAL) Basic Metabolic Panel (non-fasting) (07/06/2017 8:10 AM EST) P athologist Signature Glucose Lvl 199 65 - 199 [facility] mg/dL [facility] Comment: Diabetes: >=200 mg/dL plus symp toms BUN 16 10 - 20 mg/dL [facility] Creatinine 1.04 0.80 - 1.50 mg/dL [facility] [...] [facility] LAB[facility]ORY Estimated GFR >60 >=60 [facility] Comment: The reported eGFR should be multiplied b y 1.2 for patients. The MDRD is not an appropriate measure o f renal function for patients with body mass extremes or in patients with acute kidney failure. http://[employer].Midisolaire/DHnkdep http://[employer]/DHMCnkf Specimen Anatomical Collection Method Collection Time Receive d Time (Source) Location / / Volume Laterality Blood specimen 07/06/2017 8:10 AM 017 8:21 (specimen) EST AM EST Resulting Agency Comment Spec In Lab Daphne Shahid MD CHEMISTRY ORDERABLES Performing Organization Address City/State/ZIP Code Phon [place] [address] POCT Glucose (07/06/2017 7:34 AM EST) P athologist Signature POC Glucose 198 65 - 199 [facility] Comment: Supplemental [...] Address City/State/ZIP Code Phon e Number [address] POCT Glucose (07/06/2017 7:03 AM EST) athologist Signature POC Glucose 181 65 - 199 [facility] Comment: Supplemental ranges: <140 mg/dL before meals <180 mg/dL all other times of the day Specimen Anatomical Collection Method Collection Time Receive d Time (Source) Location / / Volume Laterality Blood specimen 07/06/2017 7:03 AM 017 7:03 (specimen) EST AM EST Daphne Shahid MD POINT OF CARE TEST ORDERABLE S Performing Organization Address City/State/ZIP Code Ph[place] [address] XR Chest PA or [...] Signature POC Glucose 172 65 - 199 [facility] mg/dL [facility] Comment: Supplemental ranges: <140 mg/dL before meals <180 mg/dL all other times of the day Specimen Anatomical Collection Method Collection Time Receive d Time (Source) Location / / Volume Laterality Blood specimen 07/06/2017 6:21 AM 017 6:21 (specimen) EST AM EST Daphne Shahid MD POINT OF CARE TEST ORDERABLE S Performing Organization Address City/State/[place] [address] POCT Glucose (07/06/2017 5:08 AM EST) athologist Signature POC Glucose 154 65 - 199 [facility] mg/dL [facility] Comment: Supplemental ranges: <140 mg/dL before meals <180 mg/dL all other times of the day Specimen Anatomical Collection Method Collection Time Receive d Time (Source) Location / / Volume Laterality Blood specimen 07/06/2017 5:08 AM 017 5:08 (specimen) EST AM EST Daphne Shahid MD POINT OF CARE TEST ORDERABLE S Performing Organization Address City/[facility]/ZIP Code Phon e Number [address] POCT Glucose (07/06/2017 4:05 AM EST) athologist Signature POC Glucose 142 65 - 199 [facility] mg/dL [facility] Comment: Supplemental ranges: <140 mg/dL before meals <180 mg/dL all other times of the day Specimen Anatomical Collection Method Collection Time Receive d Time (Source) Location / / Volume Laterality Blood specimen 07/06/2017 4:05 AM 017 4:05 (specimen) EST AM EST Daphne Shahid MD POINT OF CARE TEST ORDERABLE S Performing Organization Address City/[facility]/ZIP Code Phon e Number [address] POCT Glucose (07/06/2017 3:00 AM EST) athologist Signature POC Glucose 116 65 - 199 [facility] mg/dL [facility] Comment: Supplemental [...] Address City/State/ZIP Code Phon e Number [address] Potassium (07/06/2017 2:20 AM EST) athologist Signature Potassium 3.9 3.5 - 5.0 [facility] mmol/L [facility] Comment: Please [...] Organization Address City/State/[place] [address] Differential, Automated (07/06/2017 2:20 AM EST) athologist Signature Neutrophils % 72.9 % [facility] Neutr Abs (ANC) 5.53 1.70 - [facility] 6.10 [facility] x10(3)[facility] LABORATORY Lymphocytes % 16.4 % [facility] Lymphocytes Abs 1.2 0.9 - 3.2 [facility] x10(3)/[facility] LABORATORY Monocytes % 9.4 % [facility] Monocyte Abs 0.7 0.3 - 0.9 [facility] x10(3)[facility] LABORATORY Eosinophils % 0.5 % [facility] Eosinophils Abs 0.0 0.0 - 0.4 [facility] x10(3)[facility] LABORATORY Basophils % 0.4 % [facility] Basophils Abs 0.0 0.0 - 0.1 [facility] x10(3)/[facility] LABORATORY Immature Gran % 0.40 % [facility] Comment: Immature granulocytes(IG's)percentage an d absolute count [...] Organization Address City/State/[place] [address] (ABNORMAL) Hemogram (07/06/2017 2:20 AM EST) Analysis Performed At Patho logist Time Signature WBC 7.6 4.0 - 9.5 [facility] x[facility](3[facility] LABORATORY RBC 4.52 (L) 4.58 - [facility] RYAN 5.54 [facility] x10(6)/[facility] LABORATORY Hemoglobin 13.4 (L) 13.7 - [facility] 16.5 gm/dL [facility] Hematocrit 39.7 (L) 40.5 - [facility] 48.5 % [facility] MCV 87.8 82.9 - [facility] RYAN 93.1 [facility] LABORATORY MCH 29.6 27.5 - [place] R[place]AN 32.[address] [facility] MCHC 33.8 32.0 - [place] RYAN 35.7 gm/dL [facility] Platelets 189 145 - 357 [facility] x10(3)/[facility] LABORATORY RDWSD 45.6 (H) 36.0 - [facility] RYAN 45.0 [facility] LABORATORY RDWCV 14.3 (H) 11.4 - [facility] RYAN 13.8 % [facility] MPV 9.1 7.6 - 12.9 [facility] nRBC % Auto 0.0 % [facility] nRBC Abs Auto 0.000 0.000 - [place] [facility] 0.000 [facility] x10(3)/[facility] LABORATORY Specimen Anatomical Collection Method Collection Time Receive d Time (Source) Location / / Volume Laterality Blood specimen 07/06/2017 2:20 AM 017 2:33 (specimen) EST AM EST Resulting Agency Comment Spec In Lab Daphne Shahid MD HEMATOLOGY ORDERABLES Performing Organization Address City/State/[place] [address] (ABNORMAL) APTT (07/06/2017 2:20 AM EST) athologist Signature PTT 52 (H) 25 - [address] [facility] Comment: The recommended therapeutic range for fu ll dose, unfractionated heparin at [facility] is 80 ? 114 seconds. [...] Organization Address City/State/ZIP Code [place] [address] POCT Glucose (07/06/2017 2:20 AM EST) athologist [facility] POC Glucose 115 65 - 199 [facility] mg/dL [facility] Comment: Supplemental ranges: <140 mg/dL before meals <180 mg/dL all other times of the day Specimen Anatomical Collection Method Collection Time Receive d Time (Source) Location / / Volume Laterality Blood specimen 07/06/2017 2:20 AM 017 2:20 (specimen) EST AM EST Daphne Shahid MD POINT OF CARE TEST ORDERABLE S Performing Organization Address City/State/ZIP Code [place] [address] (ABNORMAL) Cardiac Enzymes (LEB/CGP) (07/06/2017 2:20 AM EST) athologist Signature Troponin-T 2.13 (H) 0.00 - [facility] 0.00 ng/mL [facility] Comment: [...] additional sample may be indicated. Reference: Third [place] Definition of Myocardial Infarction. Journal of the [place] [employer] 2012;60:1581-98 CK, Total 129 0 - 200 unit/L [facility] Specimen Anatomical Collection Method Collection Time Receive d Time (Source) Location / / Volume Laterality Blood specimen 07/06/2017 2:20 AM 017 2:33 (specimen) EST AM EST Resulting Agency Comment Spec In Lab Daphne Shahid MD CHEMISTRY ORDERABLES Performing Organization Address City/State/[place] [address] (ABNORMAL) Hemoglobin A1c (07/06/2017 [...] [id number] Est Avg Gluc See note mg/dL BARRE [...] with hemoglobinopathies. Additional resources are available on [facility] ADA website. Macario HAMMOND, Ruthann J, Deysi R, et al. ??Tr anslating the A1C assay into estimated average glucose values. ??Diabetes Care 2008:31(8):6684-5457. Specimen Anatomical Collection Method Collection Time Receive d Time (Source) Location / / Volume Laterality Blood specimen 07/06/2017 2:20 AM 017 2:34 (specimen) EST AM EST Resulting Agency Comment Spec In Lab Daphne Shahid MD CHEMISTRY ORDERABLES Performing Organization Address City/State/[place] [address] (ABNORMAL) Lipid Panel (07/06/2017 2:20 AM EST) [facility] Method Time Signature Chol, Total 150 <=239 [place] mg/dL [facility] Triglycerides 129 <=199 [place] mg/dL [facility] HDL 32 (L) >=40 [place] mg/dL [facility] LDL Cholesterol 92 <=190 [place] mg/dL [facility] Chol/HDL Ratio 4.7 ratio [place] [facility] Lipid See Note [place] Interpretation [facility] Comment: Lipid management should be guided by a p atient? s ASCVD risk, goals and preferences. ACC/AHA Guidelines recommend high intens ity statin if clinical ASCVD or LDL greater than or equal to 190 mg/dL. http://DA Relm CollectiblesurTurtle Beach.com/QWN-OZU-Vtxqwueel Adults aged 40-75 with LDL 70-189 mg/dL should have their 10 year ASCVD risk estimated with the ACC/AHA ASCVD risk es timator http://tools.acc.org/POACB-Zbcq-Ieesqfgw r/ Statin should be discussed if risk [...] Shahid MD CHEMISTRY ORDERABLES Performing Organization Address City/[facility]/[place] [address] POCT Glucose (07/06/2017 1:09 AM EST) athologist Signature POC Glucose 121 65 - 199 [facility] mg/dL [facility] Comment: Supplemental [...] Address City/State/ZIP Code [place] [address] POCT Glucose (07/06/2017 12:06 AM EST) athologist Signature POC Glucose 147 65 - 199 [facility]/dL [facility] Comment: Supplemental ranges: <140 mg/dL before meals <180 mg/dL all other times of the day Specimen Anatomical Collection Method Collection Time Receive d Time (Source) Location / / Volume Laterality Blood specimen 07/06/2017 12:06 7 (specimen) AM EST 12:06 AM EST Daphne Shahid MD POINT OF CARE TEST ORDERABLE S Performing Organization Address City/State/ZIP Code [place] [address] (ABNORMAL) POCT Glucose (07/05/2017 10:56 PM EST) athologist Signature POC Glucose 200 (H) 65 - 199 [facility] mg/dL [facility] Comment: Supplemental ranges: <140 mg/dL before meals <180 mg/dL all other times of the day Specimen Anatomical Collection Method Collection Time Receive d Time (Source) Location / / Volume Laterality Blood specimen 07/05/2017 10:56 7 (specimen) PM EST 10:56 PM EST Daphne Shahid MD POINT OF CARE TEST ORDERABLE S Performing Organization Address City/State/ZIP Code [place] [address] (ABNORMAL) POCT Glucose (07/05/2017 10:05 PM EST) athologist Signature POC Glucose 225 (H) 65 - 199 [facility] mg/dL [facility] Comment: Supplemental ranges: <140 mg/dL before meals <180 mg/dL all other times of the day Specimen Anatomical Collection Method Collection Time Receive d Time (Source) Location / / Volume Laterality Blood specimen 07/05/2017 10:05 7 (specimen) PM EST 10:05 PM EST Daphne Shahid MD POINT OF CARE TEST ORDERABLE S Performing Organization Address City/State/ZIP Code [place] [employer] [place] [address] (ABNORMAL) POCT Glucose (07/05/2017 9:02 PM EST) P athologist Signature POC Glucose 301 (H) 65 - 199 [facility] R[facility]AN mg/dL [facility] Comment: [...] Address City/State/ZIP Code Phon e Number [address] XR Chest PA or [...] tisfactory position. No acute cardiopulmonary process. Daphne Sahhid MD IMG DX ORDERABLES EKG 12 Lead (07/05/2017 8:39 PM EST) Component Value Ref Range Test Analysis Performed Pathologis t Method Time At Signature Ventricular rate 101 BPM MUSE SYSTEM Atrial Rate 101 BPM MUSE SYSTEM P-R Interval 150 ms MUSE SYSTEM QRS Duration 86 ms MUSE SYSTEM Q-T Interval 366 ms MUSE SYSTEM QTC Calculated 474 ms MUSE SYSTEM (Bezet) Calculated P [place] 50 degrees MUSE SYSTEM Calculated R [place] -28 degrees MUSE SYSTEM Calculated T [place] 90 degrees MUSE SYSTEM INTERPRETATION Sinus tachycardia [...] (ABNORMAL) Differential, Automated (07/05/2017 8:20 PM EST) [facility] gist Method Time Signature Neutrophils % 88.4 % [facility] Neutr Abs (ANC) 9.08 (H) 1.70 - [facility] 6.10 [facility] x10(3)/[facility] L LABORATORY Lymphocytes % 7.0 % [facility] Lymphocytes Abs 0.7 (L) 0.9 - 3.2 [facility] x10(3)/[facility] LABORATORY Monocytes % 3.7 % [facility] Monocyte Abs 0.4 0.3 - 0.9 [facility] x10(3)/[facility] LABORATORY Eosinophils % 0.1 % [facility] Eosinophils Abs 0.0 0.0 - 0.4 [facility] x10(3)/[facility] LABORATORY Basophils % 0.2 % [facility] Basophils Abs 0.0 0.0 - 0.1 [facility] x10(3)/[facility] LABORATORY Immature Gran % 0.60 [...] Gran Abs 0.06 (H) 0.00 - 0.04 x10(3)/[facility] LABORATORY Specimen Anatomical Collection Method Collection Time Receive d Time (Source) Location / / Volume Laterality Blood specimen 07/05/2017 8:20 PM 017 8:27 (specimen) EST PM EST Resulting Agency Comment Spec In Lab Daphne Shahid MD HEMATOLOGY ORDERABLES Performing Organization Address City/State/[place] [address] (ABNORMAL) Hemogram (07/05/2017 8:20 PM EST) Analysis Performed At Patho logist Time Signature WBC 10.3 (H) 4.0 - 9.5 [facility] x10(3)/[facility] LABORATORY RBC 4.64 4.58 - [facility] RYAN 5.54 [facility] x10(6)/[facility] LABORATORY Hemoglobin 14.1 13.7 - [facility] 16.5 gm/dL [facility] Hematocrit 40.8 40.5 - [place] RYAN 48.5 % [facility] MCV 87.9 82.9 - [facility] 93.1 [facility] LABORATORY MCH 30.4 27.5 - [facility] 32.[address] [facility] MCHC 34.6 32.0 - [facility] 35.7 gm/dL [facility] Platelets 204 145 - 357 [facility] x10(3)/[facility] LABORATORY RDWSD 46.1 (H) 36.0 - [facility] RYAN 45.0 fL [facility] RDWCV 14.5 (H) 11.4 - [facility] 13.8 % [facility] MPV 9.7 7.6 - 12.9 [facility] LABORATORY nRBC % Auto 0.0 % [facility] nRBC Abs Auto 0.000 0.000 - [place] 0.000 [facility] x10(3)/[facility] LABORATORY Specimen Anatomical Collection Method Collection Time Receive d Time (Source) Location / / Volume Laterality Blood specimen 07/05/2017 8:20 PM 017 8:27 (specimen) EST PM EST Resulting Agency Comment Spec In Lab Daphne Shahid MD HEMATOLOGY ORDERABLES Performing Organization Address City/[facility]/ZIP Code Phon e Number [address] APTT (07/05/2017 8:20 PM EST) P athologist Signature PTT 32 25 - [address] [facility] Comment: The recommended therapeutic range for fu ll dose, unfractionated heparin at [facility] is 80 ? 114 seconds. [...] Shahid MD HEMATOLOGY ORDERABLES Performing Organization Address City/[facility]/ZIP [facility] [place] [address] (ABNORMAL) Cardiac Enzymes (LEB/CGP) (07/05/2017 8:20 PM EST) P athologist Signature Troponin-T 2.11 (H) 0.00 - [facility] 0.[facility] ng/mL [facility] Comment: [...] additional sample may be indicated. Reference: Third [place] Definition of Myocardial Infarction. Journal of the [place] College [employer] Cardiology 2012;60:1581-98 CK, Total 149 0 - 200 unit/L [facility] Specimen Anatomical Collection Method Collection Time Receive d Time (Source) Location / / Volume Laterality Blood specimen 07/05/2017 8:20 PM 017 8:27 (specimen) EST PM EST Resulting Agency Comment Spec In Lab Daphne Shahid MD CHEMISTRY ORDERABLES Performing Organization Address City/[facility]/ZIP Code Ph[place] [address] (ABNORMAL) Magnesium (07/05/2017 8:20 PM EST) athologist Signature Magnesium 0.68 (L) 0.69 - 1.07 [facility] mmol/L [facility] Specimen Anatomical Collection Method Collection Time Receive d Time (Source) Location / / Volume Laterality Blood specimen 07/05/2017 8:20 PM 017 8:27 (specimen) EST PM EST Resulting Agency Comment Spec In Lab Daphne Shahid MD CHEMISTRY ORDERABLES Performing Organization Address City/State/ZIP Code [place] [address] (ABNORMAL) Basic Metabolic Panel (non-fasting) (07/05/2017 8:20 PM EST) athologist Signature Glucose Lvl 321 (H) 65 - 199 [facility] mg/dL [...] [facility]ENTER LABORATORY Estimated GFR >60 >=60 [facility] Comment: The reported eGFR should be multiplied b y 1.2 for patients. The MDRD is not an appropriate measure o f renal function for patients with body mass extremes or in patients with acute kidney failure. http://[employer].Midisolaire/DHnkdep http://Domee/DHMCnkf Specimen Anatomical Collection Method Collection Time Receive d Time (Source) Location / / Volume Laterality Blood specimen 07/05/2017 8:20 PM 017 8:27 (specimen) EST PM EST Resulting Agency Comment Spec In Lab Daphne Shahid MD CHEMISTRY ORDERABLES Performing Organization Address City/State/[place] [address] (ABNORMAL) POCT Glucose (07/05/2017 7:32 PM EST) athologist Signature POC Glucose 296 (H) 65 - 199 [facility] mg/dL [facility] Comment: Supplemental ranges: <140 mg/dL before meals <180 mg/dL all other times of the day Specimen Anatomical Collection Method Collection Time Receive d Time (Source) Location / / Volume Laterality Blood specimen 07/05/2017 7:32 PM 017 7:32 (specimen) EST PM EST Daphne Shahid MD POINT OF CARE TEST ORDERABLE S Performing Organization Address City/State/[place] [address] CARDIAC CATHETERIZATION (07/05/2017 6:47 PM EST) Specimen (Source) Anatomical Location Collection Method / Collectio n Time Received Time / Laterality Volume Narrative CARDIOMAC SYSTEM - 07/05/2017 7:27 PM ES T ?[facility] ? Cardiac Cathete rization/Intervention Report ? Patient Name: Natalya, Gregory ? Procedure Date: 07/05/2017 ? A #: [id number] ? Primary Physician: Clarisa, Jet T ? Case #: [id number] ? File Name: [id number] ? Catheterization Order Number: [id number] ? [facility] ? Final Report [place], [place] ? Patient Name: ? Gregory Natalya ?ID#: ?[id number] ? : ?1945 ? Procedure Date: ? [...] presented with: non -STEMI (w/i 7 days). [place] ?Cardiovascular Society angina c lass was IV. 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 ? Jet Mckenna, M.D. ? Electronically Signed by: Jet Sampson DeVrizack s, M.D. ? Report Finalized: 07/05/2017 ??19:23 ? Report Last Ammended: 10/26/2017 ??10:29 ? Procedure Note Jet Mckenna MD - 10/26/2017Formatt ing of this note might be different from the original. [facility] Cardiac Catheterization/Intervention Re port Patient Name: Gregory Hoang Procedure Date: 07/05/2017 A #: [id number] Primary Physician: Jet Mckenna Case #: [id number] File Name: [id number] Catheterization Order Number: [id number] [facility] Final Report [place], [place] Patient Name: Gregory Hoang ID#: [id number] : 1945 Procedure Date: July 05, [...] presented with: non-STEMI ( w/i 7 days). [place] [employer] angina class was IV. 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 Jet Mckenna M.D. Electronically Signed by: [...] Mccollum ? (Age): 1945(72y) Med Rec#: ? [id number] ?Sex: ?M ? Site Loc: ? [facility] ?Ht / Wt: ??173(cm)/86(kg) Pt. Loc: ?[facility] ? BSA: ?2 Study Date: ?? 07/05/2017 ?Pt. Type: Inpatient Tape: ? Referring: Daphne Shahid ([id number]) Referring: MANDA ALCANTAR Reading: Blade Preston ([id number]) Medical Staff Services Manager: Dayami Paula BA, [facility] Diagnosis: *ICD-10-PCS Non-ST elevation (NSTEMI) m [...] E-wave Vmax ?0.8 ?m/sec ? MV deceleration [id number] ?msec ? MV A-wave Vmax ?0.8 ?m/sec [...] ? Mid-Inferior ?Akinetic ? Mid-Inferoseptal ?Hypokinetic ? [place]-Septal ? Akinetic ? [place]-Anterior ? Hypokinetic ? [place]-Lateral ?Hypokinetic ? [place]-Inferior ? Akinetic ? [place]-Tip ?Akinetic ? This report has been electronically sign ed by: _ Blade Preston MD ? 07/06/2017 08 :53:15 Images reviewed and interpretation [facility] Procedure Note Blade Preston MD - 07/06/2017Formatt ing of this note might be different from the original. Procedure: Transthoracic Echocardiogram Patient: NATALYA MCBRIDE(Age): [birth year]72y) Med Rec#: [id number] Sex: M Site Loc: [facility] Ht / Wt: 173(cm)/86(kg) Pt. Loc: [facility] BSA: 2 Study Date: 07/05/2017 Pt. Type: Inpatie nt Tape: Referring: Daphne Shahid ([id number]) Referring: MANDA ALCANTAR Reading: Blade Preston ([id number]) Medical Staff Services Manager: Dayami Paula BA, [facility] Diagnosis: *ICD-10-PCS Non-ST elevation (NSTEMI) m [...] MV E-wave Vmax 0.8 m/sec MV deceleration [id number] msec MV A-wave Vmax 0.8 m/sec MV [...] Hypokinetic Mid-Posterolateral Hypokinetic Mid-Inferior Akinetic Mid-Inferoseptal Hypokinetic [place]-Septal Akinetic [place]-Anterior Hypokinetic [place]-Lateral Hypokinetic [place]-Inferior Akinetic [place]-Tip Akinetic This report has been electronically sign ed by: _ Blade Preston MD 07/06/2017 08:53:15 Images reviewed and interpretation verif ied [facility] Cardiac Ultrasound Laboratory Daphne Shahid MD ECHO ORDERABLES Performing Organization Address City/State/ZIP Code Phon e Number [facility] Differential, Automated (07/05/2017 4:55 PM EST) P athologist Signature Neutrophils % 77.0 % [facility] Neutr Abs (ANC) 5.26 1.70 - [facility] 6.10 [facility] x10(3)/[facility] LABORATORY Lymphocytes % 13.3 % [facility] Lymphocytes Abs 0.9 0.9 - 3.2 [facility] x10(3)/[facility] LABORATORY Monocytes % 8.2 % [facility] Monocyte Abs 0.6 0.3 - 0.9 [facility] x10(3)/[facility] LABORATORY Eosinophils % 0.7 % [facility] Eosinophils Abs 0.0 0.0 - 0.4 [facility] x10(3)/[facility] LABORATORY Basophils % 0.4 % [facility] Basophils Abs 0.0 0.0 - 0.1 [facility] x10(3)/[facility] LABORATORY Immature Gran % 0.40 % ST. [...] Organization Address City/State/[place] [address] (ABNORMAL) Hemogram (07/05/2017 4:55 PM EST) Analysis Performed At Patho logist Time Signature WBC 6.8 4.0 - 9.5 [facility] x10(3)/[facility] LABORATORY RBC 4.67 4.58 - [facility] 5.54 [facility] x10(6)/[facility] LABORATORY Hemoglobin 14.0 13.7 - [facility] 16.5 gm/dL [facility] Hematocrit 41.0 40.5 - [facility] 48.5 % [facility] MCV 87.8 82.9 - [facility] 93.1 [facility] LABORATORY MCH 30.0 27.5 - [facility] 32.[address] [facility] MCHC 34.1 32.0 - [facility] 35.7 gm/dL [facility] Platelets 197 145 - 357 [facility] x10(3)/[facility] LABORATORY RDWSD 46.4 (H) 36.0 - [facility] 45.0 [facility] LABORATORY RDWCV 14.5 (H) 11.4 - [facility] 13.8 % [facility] MPV 9.7 7.6 - 12.9 [facility] LABORATORY nRBC % Auto 0.0 % [facility] nRBC Abs Auto 0.000 0.000 - [facility] 0.000 [facility] x10(3)/[facility] LABORATORY Specimen Anatomical Collection Method Collection Time Receive d Time (Source) Location / / Volume Laterality Blood specimen 07/05/2017 4:55 PM 017 5:24 (specimen) EST PM EST Resulting Agency Comment Spec In Lab Daphne Shahid MD HEMATOLOGY ORDERABLES Performing Organization Address City/[facility]/ZIP Code Ph[place] [address] (ABNORMAL) Cardiac Enzymes (LEB/CGP) (07/05/2017 4:55 PM EST) athologist Signature Troponin-T 1.69 (H) 0.00 - [facility] 0.[facility] ng/mL [facility] Comment: [...] additional sample may be indicated. Reference: Third [place] Definition of Myocardial Infarction. Journal of the [place] College [employer] Cardiology 2012;60:1581-98 CK, Total 191 0 - 200 unit/L [facility] Specimen Anatomical Collection Method Collection Time Receive d Time (Source) Location / / Volume Laterality Blood specimen 07/05/2017 4:55 PM 017 5:56 (specimen) EST PM EST Resulting Agency Comment Spec In Lab Daphne Shahid MD CHEMISTRY ORDERABLES Performing Organization Address City/[facility]/ZIP Code Ph[place] [address] (ABNORMAL) pro-Brain Natriuretic Peptide (07/05/2017 4:55 PM EST) athologist Signature ProBNP 1,598 (H) <=125 [facility] pg/mL [facility] Specimen Anatomical Collection Method Collection Time Receive d Time (Source) Location / / Volume Laterality Blood specimen 07/05/2017 4:55 PM 017 5:24 (specimen) EST PM EST Resulting Agency Comment Spec In Lab Daphne Shahid MD CHEMISTRY ORDERABLES Performing Organization Address City/[facility]/ZIP Code Phon e Number [address] Magnesium (07/05/2017 4:55 PM EST) athologist [facility] Magnesium 0.78 0.69 - 1.07 [facility] mmol/L [facility] Specimen Anatomical Collection Method Collection Time Receive d Time (Source) Location / / Volume Laterality Blood specimen 07/05/2017 4:55 PM 017 5:24 (specimen) EST PM EST Resulting Agency Comment Spec In Lab Daphne Shahid MD CHEMISTRY ORDERABLES Performing Organization Address City/[facility]/ZIP Code Phon e Number [address] (ABNORMAL) Basic Metabolic Panel (non-fasting) (07/05/2017 4:55 PM EST) athologist [facility] Glucose Lvl 230 (H) 65 - 199 [facility] mg/dL [facility] Comment: Diabetes: >=200 mg/dL plus symp toms BUN 19 10 - 20 mg/dL [facility] Creatinine 1.04 0.80 - 1.50 mg/dL [facility] [...] MEDICAL CENTER LABORATORY Estimated GFR >60 >=60 [facility] Comment: The reported eGFR should be multiplied b y 1.2 for patients. The MDRD is not an appropriate measure o f renal function for patients with body mass extremes or in patients with acute kidney failure. http://Domee/DHnkdep http://Domee/DHMCnkf Specimen Anatomical Collection Method Collection Time Receive d Time (Source) Location / / Volume Laterality Blood specimen 07/05/2017 4:55 PM 017 5:24 (specimen) EST PM EST Resulting Agency Comment Spec In Lab Daphne Shahid MD CHEMISTRY ORDERABLES Performing Organization Address City/[facility]/ZIP Code Ph[place] [address] (ABNORMAL) APTT (07/05/2017 4:55 PM EST) P athologist Signature PTT 41 (H) 25 - [address] [facility] Comment: The recommended therapeutic range for fu ll dose, unfractionated heparin at [facility] is 80 ? 114 seconds. [...] Shahid MD HEMATOLOGY ORDERABLES Performing Organization Address City/[facility]/ZIP Code Ph[place] [address] (ABNORMAL) POCT Glucose (07/05/2017 4:53 PM EST) P athologist Signature POC Glucose 208 (H) 65 - 199 [facility] mg/dL [facility] Comment: Supplemental ranges: <140 mg/dL before meals <180 mg/dL all other times of the day Specimen Anatomical Collection Method Collection Time Receive d Time (Source) Location / / Volume Laterality Blood specimen 07/05/2017 4:53 PM 017 4:53 (specimen) EST PM EST Daphne Shahid MD POINT OF CARE TEST ORDERABLE S Performing Organization Address City/State/ZIP Code Ph[place] [address] EKG 12 Lead (07/05/2017 4:32 PM EST) Component Value Ref Range Test Analysis Performed Pathologis t Method Time At Signature Ventricular rate 97 BPM MUSE SYSTEM Atrial Rate 97 BPM MUSE SYSTEM P-R Interval 148 ms MUSE SYSTEM QRS Duration 96 ms MUSE SYSTEM Q-T Interval 364 ms MUSE SYSTEM QTC Calculated 462 ms MUSE SYSTEM (Bezet) Calculated P [place] 48 degrees MUSE SYSTEM Calculated R [place] -33 degrees MUSE SYSTEM Calculated T [place] 98 degrees MUSE SYSTEM INTERPRETATION Normal sinus [...] post-op day 1 in the AM Give SC if unable to take PO, Routine Given [...] post-op day 1 in the AM Give SC if unable to take PO, Routine atorvastatin [...] RN)1200 (Rate/Dose Change - Provider: More Luther, VASMI)195 (Rate/Dose Change - Provider: Elba Valverde, VAMSI [...] post-op day 1 in the AM Give SC if unable to take PO
Routine Group [...]
Routine documented in this encounter Care Teams Dispensary Attendant Relationship Specialty Start Date End Date Lovely Vicente MD PCP - General 04/16/[address] [place] [address] documented as of this encounter
--- OUTSIDE RECORDS SUMMARY | 2022-03-04 14:58 | XMS_ITS | Encounter Summary ---
:1945 [place] [address] Care Team Providers Name Role Phone Lovely Vicente MD Primary Care Provider Reason for Visit Auth/Cert Specialty Diagnoses / Procedures Referred By Contact Refer red To Contact Diagnoses STEMI (ST elevation myocardial infarction) NSTEMI STEMI Procedures CARDIAC CATHETERIZATION NAYE IPI Referral ID Status Reason Start Date Expiration Date Visits Requ ested Visits Authorized [id number] 1 1 Encounter Details Date Type Department Care Team Description 07/07/2017 Anesthesia Event Main Operating Room Yifan Jaime MD [facility] [place] [address] [facility] Ginny Murray MD [facility] [place] [address] [facility] [place] [address] Anesthesia Record Procedure Summary Procedure Name [...] 2342 LDA Cath/EP Sheath 07/05/17; 0606; 8 Honduran 07/05/17 0606 by [id number] by (Fr); Right; Femoral Lilliana Park, Yane Cook, RN PIV 07/05/17; 1720; median 07/05/17 1720 by 07/11/17 2355 by vein (underside of arm), Prior, Yanet Maza, VAMSI Crum, Angela Gomes, left; 18 gauge; removed DIAL MARKER per policy/procedure; 07/11/17; 2355 Intra-Aortic Balloon 07/05/17; [...] Miller, Carrie L, Type: Cuffed; ETT Size: ASSOCIATE PROFESSOR OF BIOLOGY 8 mm; Santiago Blade: 2; Notes: Asleep, [...] MD - 07/08/2017 5:08 PM EST [facility] [place]hesiology Post-procedure Note Patient: Don Fatima Procedure Summary Date Anesthesia Start Anesthesia Stop Room / Location 07/07/17 1335 1836 [facility] OR [facility] MAIN OR Procedure Diagnosis Surgeon Responsible Provider @CABG, USING ARTERIAL GRAFT;SINGLE ARTERIAL GRAFT (WRVU 33.75) (N/A Chest); @CABG, TWO VENOUS GRAFTS & ARTERIAL GRAFT (WRVU 7.93) (N/A Chest); ENDOSCOPIC HARVEST VEIN(S) FOR CABG (WRVU 0.31) (Right Leg) (CAD) Yuan Freitas MD Hartman, Gregg S, MD All Anesthesia Providers: Anesthesiologist: Yifan Perez MD Caustic Mixer: Ginny Murray MD Most Recent Vitals: 07/08/17 [...] performed by Manny Mcknight MD at [facility] MAIN OR ??? PRO COLONOSCOPY, REMV LESN, SNARE 01/16/2014 COLONOSCOPY, POLYPECTOMY, REMOVAL LESION BY SNARE performed by Nohemi Jaimes MD at [facility] ENDOSCOPY ??? PRO THYROIDECTOMY 03/28/2013 THYROIDECTOMY, TOTAL OR COMPLETE performed by Manny Mcknight MD at [facility] MAIN OR Social History Substance Use [...] Vitaliy Nobles MD [facility] ER DR TADE[address] [place], [place] [address] (Wo rk) 06/10/2022 Office Visit Dermatology Laura Scherer MD [facility] DR [address]DERMAT [place], [place] [address] (Wo rk) documented as of [...] mg documented in this encounter Care Teams Health Insurance Agent Relationship Specialty Start Date End Date Lovely Vicente MD PCP - General 04/16/[address] [place] [address] documented as of this encounter
--- OUTSIDE RECORDS SUMMARY | 2022-03-04 14:59 | XMS_ITS | Encounter Summary ---
:1945 Author Organization [facility] [place] [address] Care Team Providers Name Role Phone Lovely Vicente MD Primary Care Provider Reason for Visit Reason Onset Date Comments Medication Refill 12/24/2016 Encounter Details Date Type Department Care Team Description 12/24/2016 Refill Endocrinology at [facility] Luz Stallings MD [facility] [place] [address] ENDOCRINOLOGY DEPT [phone] [place], [place] [address] (Wo rk) Social History Tobacco [...] Nobles MD [facility] DR TADE[address] [place], [place] [address] (Wo rk) 06/10/2022 Office Visit Dermatology Laura Scherer MD [facility] DR TEJA GR-DERMAT [place]LOG[place], [place] [address] (Wo rk) documented as of this encounter Visit Diagnoses Not on filedocumented in this encounter Care Teams Project Geologist Relationship Specialty Start Date End Date Lovely Vicente MD PCP - General 04/16/[address] [place] [address] documented as of this encounter
--- OUTSIDE RECORDS SUMMARY | 2022-03-04 14:59 | XMS_ITS | Encounter Summary ---
:1945 Author Organization [facility] [place] [address] Care Team Providers Name Role Phone Lovely Vicente MD Primary Care Provider Encounter Details Date Type Department Care Team Description 09/03/2016 Office Visit Endocrinology at [facility] Maria Ines Stallings of [facility] MD [place] [address] [place] [address] ENDOCRINOLOGY DEPT [place], [place] [address] Social History Tobacco Use [...] to his magnesium pill. LUZ PRESCOTT MD Oil Pipeline Operatorcity route driver Section of Endocrinology [facility] Luz Prescott MD - 09/03/2016 11:30 AM [...] sonographic evidence of recurrence. LUZ PRESCOTT MD Oil Pipeline Operatorcity route driver Section of Endocrinology [facility] documented in this encounter Plan of Treatment Upcoming Encounters Date Type Specialty Care Team Description 03/26/2022 Office Visit Cardiology Vitaliy Nobles MD [facility] CARDIOLOGY [place], [place] [address] (Wo rk) 06/10/2022 Office Visit Dermatology Laura Scherer MD [facility] DR [address] [place]LOG[place], [place] [address] (Wo rk) documented as of this encounter Results Thyroglobulin (09/07/2017 2:41 PM EST) athologist Signature Thyroglobulin 1.4 <=54.9 [facility] ng/mL [facility] Comment: Thyroglobulin levels may be [...] Prescott MD CHEMISTRY ORDERABLES Performing Organization Address City/[facility]/ZIP Code Phon e Number [address] TSH (09/07/2017 2:41 PM EST) P athologist Signature TSH 3.93 0.27 - 4.20 KATALINA DAVIS mlU/ML [facility] Specimen Anatomical Collection Method Collection Time Receive d Time (Source) Location / / Volume Laterality Blood specimen 09/07/2017 2:41 PM 018 2:46 (specimen) EST PM EST Resulting Agency Comment Spec In Lab Luz Prescott MD CHEMISTRY ORDERABLES Performing Organization Address [facility] Phon e Number [address] Thyroglobulin (09/03/2016 11:07 AM EST) athologist Signature Thyroglobulin <0.4 <=54.9 KATALIAN DAVIS ng/mL [facility] Comment: Interpret with caution. Tg [...] BR et al. J Clin Endo Metab 1999;84:1904-5576). Assay performed using the DPC Immulite T [...] Address City/State/[place] [address] TSH (09/03/2016 11:07 AM EST) P athologist Signature TSH 3.01 0.27 - 4.20 [facility] mcIU/mL [facility] Specimen Anatomical Collection Method Collection Time Receive d Time (Source) Location / / Volume Laterality Blood specimen 09/03/2016 11:07 7 (specimen) AM EST 11:22 AM EST Resulting Agency Comment Spec In Lab Luz Prescott MD CHEMISTRY ORDERABLES Performing Organization Address City/[facility]/ZIP [place] [address] documented in this encounter Visit Diagnoses Diagnosis Hx of papillary thyroid carcinoma Personal history of malignant neoplasm o f thyroid documented in this encounter Care Teams A R Specialist Relationship Specialty Start Date End Date Lovely Vicente MD PCP - General 04/16/[address] [place] [address] documented as of this encounter
--- OUTSIDE RECORDS SUMMARY | 2022-03-04 14:59 | XMS_ITS | Encounter Summary ---
:1945 Author Organization [facility] [place] [address] Care Team Providers Name Role Phone Lovely Vicente MD Primary Care Provider Encounter Details Date Type Department Care Team Description 07/10/2016 Telephone Dermatology at [facility] Rigoberto White III, [address] [place] [address] [facility] [phone] [facility] [place], [place] [address] (Wo rk) Social History Tobacco [...] Nobles MD [facility] MEDICAL [facility] ER [address] TADEO [place], [place] [address] (Wo rk) 06/10/2022 Office Visit Dermatology Laura Scherer MD [facility] DR TEJA MARIE-DERMAT [place], [place] [address] (Wo rk) documented as of this encounter Visit Diagnoses Not on filedocumented in this encounter Care Teams Military Equipment Specialist Relationship Specialty Start Date End Date Lovely Vicente MD PCP - General 04/16/[address] [place] [address] documented as of this encounter
--- OUTSIDE RECORDS SUMMARY | 2022-03-04 14:59 | XMS_ITS | Encounter Summary ---
:1945 Author Organization [facility] [place] [address] Care Team Providers Name Role Phone Lovely Vicente MD Primary Care Provider Reason for Visit Reason Comments Follow-up Encounter Details Date Type Department Care Team Description 06/03/2017 Office Visit Dermatology at Rigoberto Forman benign nevi; Abdelrahman HOOPER MD History of melanoma; [address] [facility] History of dysplastic nevus; [place] [address] Skin exam for malignant neoplasm [phone] [facility]-DER[facility] [place], [place] [address] Social History Tobacco Use Types [...] Cardiology Vitaliy Nobles MD [facility] ER [address] TADE[address] [place], [place] [address] (Wo rk) 06/10/2022 Office Visit Dermatology Laura Scherer MD [facility] DR TEJA GR[address]DERMAT [place], [place] [address] (Wo rk) documented [...] skin documented in this encounter Care Teams Trial Justice Relationship Specialty Start Date End Date Lovely Vicente MD PCP - General 04/16/[address] [place] [address] documented as of this encounter
--- OUTSIDE RECORDS SUMMARY | 2022-03-04 14:59 | XMS_ITS | Encounter Summary ---
:1945 Author Organization [facility] [place] [address] Care Team Providers Name Role Phone Lovely Vicente MD Primary Care Provider Encounter Details Date Type Department Care Team Description 07/05/2017 Telephone Cardiology Kim Galindo MD [facility] [place] [address] CARDIOLOGY DEPT [phone] [place], [place] [address] (Wo rk) Social History Tobacco [...] Referring Provider: Ivania CROWELL) Patient Location: [facility] Presenting Symptoms per OSH: 72 year [...] infarct and elevated troponin, transport patient to [facility] for cath this afternoon and arrhythmia monitoring. Kim Galindo MD Histopathologist documented in this encounter Plan of Treatment Upcoming Encounters Date Type Specialty Care Team Description 03/26/2022 Office Visit Cardiology Vitaliy Nobles MD [facility] [address] [place], [place] [address] (Wo rk) 06/10/2022 Office Visit Dermatology Laura Scherer MD [facility] [address] [place], [place] [address] (Wo rk) documented as of this encounter Visit Diagnoses Not on filedocumented in this encounter Care Teams Telegraph Service Rater Relationship Specialty Start Date End Date Lovely Vicente MD PCP - General 04/16/[address] [place] [address] documented as of this encounter
--- OUTSIDE RECORDS SUMMARY | 2022-03-04 14:59 | XMS_ITS | Encounter Summary ---
:1945 Author Organization [facility] [place] [address] Care Team Providers Name Role Phone Lovely Vicente MD Primary Care Provider Reason for Visit Reason Onset Date Comments Pre Procedure Call 12/02/2016 Encounter Details Date Type Department Care Team Description 12/02/2016 Telephone Dermatology at [facility] Mira James LPN Pre Procedure Call [address] [place] [address] Social History Tobacco Use Types Packs/Day [...] MD [facility] [address] [place], [place] [address] (Wo rk) 06/10/2022 Office Visit Dermatology Laura Scherer MD [facility] DR [address] [facility] [place], [place] [address] (Wo rk) documented as of this encounter Visit Diagnoses Not on filedocumented in this encounter Care Teams Vocational Rehabilitation Supervisor Relationship Specialty Start Date End Date Lovely Vicente MD PCP - General 04/16/[address] [place] [address] documented as of this encounter
--- OUTSIDE RECORDS SUMMARY | 2022-03-04 14:59 | XMS_ITS | Encounter Summary ---
:1945 [place] [address] Care Team Providers Name Role Phone Lovely Vicente MD Primary Care Provider Reason for Visit Auth/Cert Specialty Diagnoses / Procedures Referred By Contact Refer red To Contact Diagnoses STEMI (ST elevation myocardial infarction) NSTEMI STEMI Procedures CARDIAC CATHETERIZATION NAYE IPI Referral ID Status Reason Start Date Expiration Date Visits Requ ested Visits Authorized [id number] 1 1 Encounter Details Date Type Department Care Team Description 07/05/2017 Surgery Standards Engineer Jet Guan, CARDIAC CATHETERIZATION [facility] [place] [address] CARDIOLOGY DEPT. [phone] [place], [place] [address] (Wo rk) Social History Tobacco [...] this encounter Discharge Summaries Martha Teague S, DRAWING OPERATOR - 07/14/2017 9:38 AM EST Inpatient - Discharge Summary Patient Name: Gregory Hoang Patient Age: 72 y.o. Birthdate: 1945 Language: Solomon Islander Race: White Ethnicity: Not nor Admit Date: [...] , @ 1:20p Patient to follow-up with Branch Banker/heart failure team in one week. An appointment will be made for you. You may call [phone] Patient to follow-up with Cardiac Surgery, Dr. Yuan Webber, in ~ 4 weeks with CXR, EKG. Inpatient Provider Contact Information: [facility] Section of [place]iac [place] [facility] [place] [address] FAX [phone] Discharge Diagnoses (Hospital Problems) Primary Diagnoses: CAD [...] SETUP performed by Manny Mcknight MD at [facility] OR ??? PRO CABG, ARTERIAL, SINGLE N/A 07/07/2017 @CABG, USING ARTERIAL GRAFT;SINGLE ARTERIAL GRAFT (WRVU 33.75) performed by Yuan Webber MD at [facility] OR ??? PRO CABG, ARTERY-VEIN, TWO N/A 07/07/2017 @CABG, TWO VENOUS GRAFTS & ARTERIAL GRAFT (WRVU 7.93) performed by Yuan Webber MD at [facility] OR ??? PRO COLONOSCOPY, REMV LESN, SNARE 01/16/2014 COLONOSCOPY, POLYPECTOMY, REMOVAL LESION BY SNARE performed by Nohemi Jaimes MD at [facility] ENDOSCOPY ??? PRO ENDOSCOPY W/VIDEO-ASST VEIN HARVEST, CABG Right 07/07/2017 ENDOSCOPIC HARVEST VEIN(S) FOR CABG (WRVU 0.31) performed by Yuan Webber MD at [facility] OR ??? PRO THYROIDECTOMY 03/28/2013 THYROIDECTOMY, TOTAL OR COMPLETE performed by Manny Mcknight MD at [facility] OR Prior To Admission Medications Prescriptions Prior to Admission Medication Sig Dispense Refill Last Dose ??? levothyroxine (SYNTHROID) 175 mcg Tablet Take 1 tablet by mouth daily. 90 tablet 3 07/05/2017 [id number] ??? ascorbic acid, vitamin C, (VITAMIN C) [...] Hospital Course: Gregory Hoang was admitted to [facility] on 07/05/2017 via the Cardiology Service. During his hospital course, he was taken emergently to the labor relations officer for an ongoing STEMI. An IABP was [...] not take or discontinue any prescription or qpcu-eln-ipkptim medications without asking your doctor or pharmacist [...] day to have your insulin doses adjusted. [facility] [place] Discharge Instructions: Call your doctor if: You have a fever of greater than 101 degrees, shaking chills, if you develop redness or drainage from your incision sites, or if you have questions. Please call your surgeon's office if you have any discharge or drainage from your chest incision. Your surgeon, Dr. Yuan Webber and/or the Cardiac Surgery Physician Large Animal Veterinarian Team may be reached at . Weight: [...] Dr. Yuan Webber. You may use a [place] Track or treadmill but avoid any pulling [...] friends, go to a movie, go to sikhism, etc. Heavy activities: No hunting, skiing, jogging, snow shoveling, snowmobiling, lawn mowing, swimming, golf or tennis until after your return appointment with the surgeon. Do not ride motorcycles, Xmybox tractors or horses. Avoid the use of [...] should resume a low fat, low cholesterol, French Heart Association Diet/Diabetic diet. Driving: No driving [...] , @ 1:20p Patient to follow-up with Branch Banker/heart failure team in one week. Appointment will be made for you. You may call [phone] Patient to follow-up with Cardiac Surgery, Dr. Yuan Webber, in ~ 4 weeks with CXR, EKG. Cardiac Rehabilitation: Gregory Hoang was seen today regarding participation in the outpatient Phase 2 Cardiac Rehabilitation at [facility]. The patient agrees to a referral to this program. The referral will be sent at discharge and the patient should be contacted by the Program within 1- 2 weeks from discharge. ?? Future Appointments and Orders Future Appointments Provider Department Dept Phone 09/07/2017 3:00 PM LAB, THREE L Lab 3L [facility] [phone] 09/07/2017 4:00 PM Luz Prescott MD Endocrinology at [facility] [phone] Future Orders Complete By Expires EKG 12 Lead [EKG1 Custom] 08/14/2017 02/13/2018 Process Instructions: Scheduling Instructions: Questions: Which DH location will this be performed?: [place] Is a rhythm strip needed?: No If EKG Reason is Pre-op Evaluation, indicate diagnosis for surgery.: XR Chest PA & Lateral (Generic) [[id number] Custom] 08/14/2017 02/13/2018 Process Instructions: Scheduling Instructions: Questions: Where will study be performed?: [facility] Portable exam?: Reason for exam and clinical history: CABG x 3 Other pertinent information: Stat read required?: Date of injury if applicable: Requested Time: Referral to Cardiac Rehab [BTT760 Custom] As directed Process Instructions: If no progress note charted, please enter Clinical details in comments. Scheduling Instructions: Questions: My question or request is: s/p CABG. Cardiac rehab at [facility] Referral to Home Health - at DISCHARGE [RDP5749 CPT(R)] As directed Process Instructions: Scheduling Instructions: Comments: DOCUMENTATION FOR VNA SERVICES (INCLUDING THOSE PATIENTS WITH MEDICARE COVERAGE REQUIRING HOME VNA SERVICES AND/OR HOSPICE SERVICES) PATIENT'S LOCATION: Gregory Hoang [address] [place] [address] [place] [address] (home) Telephone Information: End Touching Machine Operator's Name: self In discussion with the attending physician, it is certified that this patient is under their care and that they, or a Nurse Practitioner, or Physician Large Animal Veterinarian who is working directly with them, had [...] HEALTH AGENCY: [facility] ([facility] [place] [facility] in [place]) PHONE: [phone] FAX: [phone] RN orders: Cardiopulmonary assessment, incisional assessment, assess vital signs, assessment of rehab progress, medication management and effectiveness, home safety evaluation. Please draw INR if indicated and send result to:Dr Vicente [phone] PT ORDERS: Continue rehab for endurance, gait stability and strength with mobility and transfers. Home safety evaluation. Home exercise program if appropriate. Start of Care Date:24-48 hours after discharge SPECIAL INSTRUCTIONS: For any follow up questions, needs, or issues please call the Cardiac Surgery Office at [phone] FOR MEDICARE ONLY: (please delete this section [...] [facility] [place] [address] FAX [phone] Date: 07/14/2017 CC: MD Ivania Cr Betsy, PA [address] [place] [phone] documented in this encounter Discharge Instructions Discharge [...] day to have your insulin doses adjusted. [facility] [place] Patient InstructionsStMartha mcdonald APRN [...] not take or discontinue any prescription or ucqk-khy-uzlfhmc medications without asking your doctor or pharmacist [...] day to have your insulin doses adjusted. [facility] [place] ? Discharge Instructions: ?? Call your doctor if: You have a fever of greater than 101 degrees, shaking chills, if you develop redness or drainage from your incision sites, or if you have questions. Please call your surgeon's office if you have any discharge or drainage from your chest incision. Your surgeon, Dr. Yuan Webber and/or the Cardiac Surgery Physician Large Animal Veterinarian Team may be reached at . ?? [...] Dr. Yuan Webber. You may use a [place] Track or treadmill but avoid any pulling [...] friends, go to a movie, go to sikhism, etc. ?? Heavy activities: No hunting, skiing, jogging, snow shoveling, snowmobiling, lawn mowing, swimming, golf or tennis until after your return appointment with the surgeon. Do not ride motorcycles, [employer]'s tractors or horses. Avoid the use of [...] should resume a low fat, low cholesterol, French Heart Association Diet/Diabetic diet. ?? Driving: No [...] @ 1:20p ?? Patient to follow-up with Branch Banker/heart failure team in one week. An appointment has been made for you, you can call [phone] ?? Patient to follow-up with Cardiac Surgery, Dr. Yuan Webber, in ~ 4 weeks with CXR, EKG. ? Cardiac Rehabilitation: Gregory Hoang??was seen today regarding participation in the outpatient Phase 2 Cardiac Rehabilitation at [facility]. ?? The patient agrees to a referral to this program.? The referral will be sent at discharge and the patient should be contacted by the Program within 1- 2 weeks from discharge. ? Future Appointments and Orders Future Appointments Provider Department Dept Phone ?? 09/07/2017 3:00 PM LAB, THREE L Lab 3L [facility] [phone] ?? 09/07/2017 4:00 PM Luz Prescott MD Endocrinology at [facility] [phone] Future Orders Complete By Expires ?? EKG 12 Lead [EKG1 Custom] 08/14/2017 02/13/2018 ?? Process Instructions: ? Scheduling Instructions: ? Questions: ? Which location will this be performed?: [facility] ?? Is a rhythm strip needed?: No ?? If EKG Reason is Pre-op Evaluation, indicate diagnosis for surgery.: ?? XR Chest PA & Lateral (Generic) [[id number] Custom] 08/14/2017 02/13/2018 ?? Process Instructions: ? Scheduling Instructions: ? Questions: ? Where will study be performed?: [facility] ?? Portable exam?: ?? Reason for exam and clinical history: CABG x 3 ?? Other pertinent information: ?? Stat read required?: ?? Date of injury if applicable: ?? Requested Time: ?? Referral to Cardiac Rehab [NYC607 Custom] As directed ? Process Instructions: ?? If no progress note charted, please enter Clinical details in comments. ?? Scheduling Instructions: ? Questions: ? My question or request is: s/p CABG. Cardiac rehab at [facility] ? Arrangements for VNA/home care: As above. [...] RN - 07/14/2017 2:34 PM EST The patient/district representative has been provided a list of Home Health Agencies/DME vendors which serve their preferred geographic area. A letter describing our affiliations was reviewed with them and theywere educated about their right to choose where referrals are placed. Patient requests referral to [facility]. PHONE: [phone] FAX: [phone] Expected date of discharge: 07/14 Referral routed to the Integrated Marketing Manager for matching with agency/vendor and to [...] day to have your insulin doses adjusted. [facility] [place] Kathie Carrera APRN [facility] Endocrinology Diabetes Management Pager [phone] minutes of this 35 minute visit was spent with the patient in counseling on diabetes and treatment plan, reviewing all glucose and insulin data as well as relevant laboratory results with the patient, and coordination of care on the inpatient unit including nursing and primary team. Zulma Andres RN - 07/14/2017 10:30 AM EST The patient/district representative has been provided a list of Home Health Agencies/DME vendors which serve their preferred geographic area. A letter describing our affiliations was reviewed with them and theywere educated about their right to choose where referrals are placed. Patient requests referral to : [facility] ([facility] [place] [facility] in [place]) PHONE: [phone] FAX: [phone]. Expected date of discharge: 07/14/17 Referral routed to the Integrated Marketing Manager for matching with agency/vendor and to [...] hours. If BG remains greater than 240, [id number] units (no more than three times) &??call [...] Will continue to follow Katerin Azul APRN [facility] Endocrinology Diabetes Management Pager [phone] minutes of this 25 minute visit [...] of infiltration/extravasation Discussed plan of care with OPTICAL GOODS WORKER and RN. Elevate exrtemity and apply intermittent Warm compresses. Name of MD contacted Dr. Shaw Brown 07/13/2017 @ 0655 Name of RN contacted Ale Rnagel RN Name of Pharmacist if consulted NA Name of Plastics MD ( if consulted) NA (Mandatory photo for infiltrations/ extravasations scoring a stage 2 or greater, but recommended forstage 1)( include measuring tape and identifier in the photo) SALES ACCOUNT EXECUTIVE CARING FOR THIS PATIENT WILL CONTINUE TO [...] measuring tape and identifier in the photo) SALES ACCOUNT EXECUTIVE CARING FOR THIS PATIENT WILL CONTINUE TO [...] regard to both infiltrates addressed by this telegraphic typewriter operator chief.All of Mr. Hoang's responses were entirely appropriate. Images of infiltrates attached here. Martha Sharp APRN - 07/13/2017 8:01 AM EST Cardiac Surgery Progress Note: ID: [id number] 72 year old male POD#6 s/p CABGx3 [...] discharge. ?? I have met with the patient/district representative to discuss discharge planning needs. I have provided the [facility], Office of Care Management letter from the Blast Furnace Keeper pertaining to rehab referrals. I have also provided a letter describing our affiliations within the [facility] and educated them about their right to choose where referrals are placed. ?? I reviewed the different levels of rehab including SNF, swing, acute and LTAC with the patient/district representative. ?? The patient/district representative has been provided a list of facilities within their preferred geographic area. ?? I have requested that the patient/district representative provide at least three choices for referral. ?? The patient/district representative have requested referrals to: ?? 1. . ?? 2. [facility] ?? 3. More to be entered ?? Expected date of discharge: 07/14 Note routed to Integrated Marketing Manager who will communicate referrals to facilities [...] hours. If BG remains greater than 240, epaaoz60 units (no more than three times) & [...] hours. If BG remains greater than 240, yaajgs70 units (no more than three times) & call for new basal insulin orders. ??If less than 240 after two hours, give no insulin and resume prior schedule. Will continue to follow Katerin Azul APRN [facility] Endocrinology Diabetes Management Pager [phone] minutes of this 35 minute visit was spent with the patient in counseling on diabetes and treatment plan, reviewing all glucose and insulin data as well as relevant laboratory results with the patient, and coordination of care on the inpatient unit including nursing and primary team. Makayla Stevenson APRN - 07/12/2017 9:52 AM EST Cardiac Surgery Progress Note: ID: [id number] 72 year old male POD#5 s/p CABGx3 [...] 07/11/2017 7:18 PM EST Patient arrived from [facility]. VSS. MSI dressing pulled off with fresh [...] hours. If BG remains greater than 240, gkjykg13 units (no more than three times) & [...] AM EST Cardiac Surgery Progress Note: ID: [id number] 72 year old male POD#4 s/p CABGx3 [...] hours. If BG remains greater than 240, tzzaix56 units (no more than three times) & [...] AM EST Cardiac Surgery Progress Note: ID: [id number] 72 year old male POD#3 s/p CABGx3 [...] Gas) No results found for: PHART, PO2ART, HTH0MQV Assessment/Plan: 72 year old male POD#3 s/p [...] Mami Thao - 07/09/2017 6:29 PM EST Occupational Psychologist Encounter Note Patient Name: Gregory Hoang : [id number] MR#: [id number] Admit Date: 07/05/2017 4:20 PM Hospital Day 4 days Narrative: Patient was sitting in chair, hugging heart pillow, opened his eyes, nodding to come into room Assessment: Patient was sleepy. Intervention and Outcome: Introduced equipment technician services and patient reached his hand out in appreciation. Follow-up: Occupational Psychologist remains available for support. Time in Direct [...] 10:45 AM EST Report given to staff nurse to cover care Maddison Cee PA - 07/09/2017 9:00 AM EST Cardiac Surgery Progress Note: ID: [id number] 72 year old male POD#2 s/p CABGx3 [...] Attending Surgeon on rounds. Signed: STEPHANIE Iqbal [facility] Section of Cardiac Surgery Date: 07/09/2017 [...] when IABP d/c'ed. Gretchen Carolina, PT Pager [phone] Maddison Cee PA - 07/08/2017 11:27 AM EST Cardiac Surgery Progress Note: ID: [id number] 72 year old male POD#1 s/p CABGx3 [...] Attending Surgeon on rounds. Signed: STEPHANIE Iqbal [facility] Section of Cardiac Surgery Date: 07/08/2017 [...] in place in R femoral. No hematoma. HOSPITAL RECEPTIONIST- Intact Psych- Anxious Skin- Dry, no peripheral [...] intact. IABP in place in R femoral. HOSPITAL RECEPTIONIST- Intact Psych- Anxious Skin- Dry, no peripheral [...] 1 day ) Service: S2 ID: Gregory Honag is a 72 y.o. male with a [...] note for details. DAPHNE SHAHID MD Pager [phone] Jet Mckenna MD - 07/05/2017 6:48 PM EST Preliminary Cardiac Catheterization Procedure Note: Procedure(s) performed: Left heart cath, IABP insertion Access: Right HELP DESK ANALYST-->8fr IABP A time-out was conducted prior [...] Full report to follow. Jet Mckenna MD Yante Sutton RN - 07/05/2017 6:21 PM EST Pt arrived to unit @ 1630, labs drawn, EKG obtained. Pt denies CP, endorses FOURNIER. No SOB at rest at time of admission. Arrived from EMS on 6L NC, titrated to 2L NC with sats 98-100. BP elevated on admission, 5mg IV metop given with effect. Heparin gtt maintained. Pt transferred to labor relations officer. documented in this encounter H&P Notes Daphne Shahid MD - 07/05/2017 6:08 PM EST CARDIOLOGY HISTORY & PHYSICAL EXAM Date of Admission: 07/05/2017 ( Hospital Day 0 days ) Responsible Attending: Daphne Shahid MD PCP: Lovely Vicente MD PCP#: [phone] Patient Active Problem List Diagnosis Code ??? [...] load with heparin drip and transferred to [facility]. While there, continued sob, question of chest pain. Stat TTE showing WMA diffusely and EF around 20%. No significant valvular disease. Taken to the labor relations officer urgently for ongoing STEMI. [facility] Labs: INR 1.0 WBC 5.88 Hgb 12.9 [...] - s/p lasix in the labor relations officer, redose to aim net neg 1L by [...] Medicine, PGY-2 Cardiology S1, Team Pager # [phone] CARDIOLOGY ATTENDING NOTE Patient: Gregory Hoang Date [...] amenable for PCI. DAPHNE SHAHID MD Pager [phone] documented in this encounter Miscellaneous Notes Consult Note - Daphne Shahid MD - 07/14/2017 11:46 AM EST Heart Failure Service Inpatient Consult Note Gregory Hoang Date of : 1945 Age: 72 y.o. Today's date: 07/14/17 PCP: Lovely Vicente MD SENIOR STRATEGY ANALYST: None Place of Service: [facility] Reason for Consult: Dr. Webber [...] SETUP performed by Manny Mcknight MD at [facility] OR ??? PRO CABG, ARTERIAL, SINGLE N/A 07/07/2017 @CABG, USING ARTERIAL GRAFT;SINGLE ARTERIAL GRAFT (WRVU 33.75) performed by Yuan Webber MD at [facility] OR ??? PRO CABG, ARTERY-VEIN, TWO N/A 07/07/2017 @CABG, TWO VENOUS GRAFTS & ARTERIAL GRAFT (WRVU 7.93) performed by Yuan Webber MD at [facility] OR ??? PRO COLONOSCOPY, REMV LESN, SNARE 01/16/2014 COLONOSCOPY, POLYPECTOMY, REMOVAL LESION BY SNARE performed by Nohemi Jaimes MD at [facility] ENDOSCOPY ??? PRO ENDOSCOPY W/VIDEO-ASST VEIN HARVEST, CABG Right 07/07/2017 ENDOSCOPIC HARVEST VEIN(S) FOR CABG (WRVU 0.31) performed by Yuan Webber MD at [facility] OR ??? PRO THYROIDECTOMY 03/28/2013 THYROIDECTOMY, TOTAL OR COMPLETE performed by Manny Mcknight MD at [facility] OR Outpt Meds: Current Outpatient [...] following studies: EKG 07/14/17: NSR 75 bpm, VOLTAGE REGULATOR ASSEMBLER anterior infarct, LAD CXR 07/11/17: FINDINGS: Sternotomy wires. The patient has been extubated, left chest tube removed, and [place]-Suzi catheter removed since the 07/07/2017 study. Atelectasis [...] was discussed with Zehra. Jaden Kelley MD Editorial Assistant Pager [phone] CARDIOLOGY ATTENDING NOTE Patient: Gregory Hoang Date [...] heart failure clinic. DAPHNE SHAHID MD Pager [phone] Plan of Care - Alden Chavarria PTA [...] home with assist Alden Chavarria PTA Pager: [phone] Inpatient Physical Therapy Problem: Acute Rehab Services [...] sit/sit to supine -- Bed Mobility Goal, [place] Level supervision required -- Bed Mobility Goal, [...] - 3 days -- Gait Training Goal, [place] Level supervision required -- Gait Training Goal, [...] days -- Transfer Training Goal, Activity Type flm-dz-cgtgh/uheyy-yj-fju;ffk-kz-dtqhi/hzoww-ib-ovq;toilet -- Transfer Train Goal, [place] Level supervision required -- Transfer Training Goal, [...] keeping present for 2 days per family. Airplane Dispatch Clerk noted of frustrations, house keeping sent to room. Patient offered showered twice, refused. at bedside, frustrated that shower not complete, informed that patient had refused several times. requesting to see BLINDMAKER, paged sent to Martha, will come to bedside (middle of consult). not willing to wait, Martha notified that family had gone home. Encouraged to come for morning rounds a t 8am. Diabetes team at bedside - insulin adjustments made. Call cabello in reach. Continue to monitor. PLAN MOVING FORWARD: Ambulate, dressing changes BID, Please change drsg at 4am per Martha BLINDMAKER request. INDIVIDUALIZED FALL PREVENTION INTERVENTIONS: Patient-specific fall [...] levels on the lower side, 60ml of [place] juice given after a FS of 80. [...] 07/13/17 0502 Interdisciplinary Rounds/Family Conf Participants case management social worker;dietitian/nutrition services;nursing;occupational therapy;patient;pharmacy;physical therapy;physician Plan of Care - [...] monitoring required during toileting and ADLs]: RN OPTICAL GOODS WORKER Surveillance [continuous indirect monitoring]: Barrett Monitor CPG [...] Anticipated Discharge Disposition: home with assist Pager: [phone] CLARISSA SEGAL, PT 07/12/2017 Physical Therapy Rehabilitation [...] to sit/sit to supine Bed Mobility Goal, [place] Level supervision required Bed Mobility Goal, Additional Goal adheres to psternal precautions for transfer Goal: Gait Training Goal Stand Alone Therapy Goal Outcome: Ongoing (Interventions Implemented as Appropriate) 07/12/17 1225 Gait Training Goal Gait Training Goal, Date Established 07/12/17 Gait Training Goal, Time to Achieve 2 - 3 days Gait Training Goal, [place] Level supervision required Gait Training Goal, Assist [...] 3 days Transfer Training Goal, Activity Type pbo-ax-omnkc/kqlva-ed-bgg;wah-ux-zoxtn/bdybe-ld-ifh;toilet Transfer Train Goal, [place] Level supervision required Transfer Training Goal, Additional Goal adheres to sternal precautions during transfer Consult Note - Octavia Vaughn RN - 07/12/2017 10:50 AM EST [facility] Gregory Hoang was seen today regarding participation in the outpatient Phase 2 Cardiac Rehabilitation at [facility]. The patient agrees to a referral to [...] IV site, amio to other piv and BUS DISPATCHER INTERSTATE at bedside to help assess, IV removed. [...] staff, he stood and marched in place. [place] weak, wanting to sit back down. Remained [...] Health/Prescription Coverage: Primary Insurance: MEDICARE Secondary Insurance: [employer] [place] Prescription Coverage: yes Preferred Pharmacy: [email or web address] Other: none Primary Care Provider: Lovely Vicente MD [phone] Patient/Caregiver Goals of Treatment:live and get my breath back Potential Needs for Transition of Care: Rehab/SNF: St. ; [facility] Home Health: NA DME: TBD Dialysis: na Community Resources: available Transportation: yes Other: none Anticipated Barriers to Discharge/Special Considerations: none Plan: Likely SNF Rehab before home A member of the Care Management team will continue to monitor progress, follow for continuity of care and assist with transition of care planning. ERLIN Weiss Pager: [phone] Consult Note - Katerin Azul RN - 07/09/2017 10:05 AM EST Diabetes Management Team Inpatient Consult Date of Consultation: 07/09/2017 Consult Requested by: Primary team- Cardiac Surgery Reason for Consultation: Gregoyr Hoang is a 72 y.o. male [...] potential to d/c gtt and start CF. medical terminologist diabetes care: Medications - Outpatient treatment regimen recommendations pending based on the hospital course. Monitoring - continue BG tid ac & hs Diet - low fat/low carb diet Exercise - weight-bearing exercise 30 min/day, as tolerated Thank you for allowing us to provide care for your patient W/E coverage, Dr. Jeane Tatum, pager [phone] Katerin Azul APRN Endocrinology Diabetes Management Pager [phone] Plan of Care - Stephanie Godoy, RN [...] Webber MD - 07/07/2017 6:27 PM EST [facility] [place] Patient Name: Gregory Hoang : [id number] MR#: [id number] Case Date: 07/07/2017 Surgeon: Surgeon(s) and Role: * Yuan Webber MD - Primary * Michael Drake PA - Physician Large Animal Veterinarian * Linda Flores PA - Physician Large Animal Veterinarian Preoperative diagnosis: 3VD Postoperative diagnosis: CAD, severe [...] Operative Note Patient Name: Gregory Hoang : [id number] MR#: [id number] Case Date: 07/07/2017 Surgeon: Surgeon(s) and Role: * Yuan Webber MD - Primary * Michael Drake PA - Physician Large Animal Veterinarian * Linda Flores PA - Physician Large Animal Veterinarian Preoperative diagnosis: 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/07/17621 Cardiac: ACS (Acute Coronary Syndrome) Problems [...] Hahn, MS3 [employer] [facility] Cardiology S1 (Pager [phone]) Plan of Care - Emelia Ibarra RN [...] at [facility] ENDOSCOPY ??? 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 #Home Meds - continue levothyroxine 175mcg - CPAP at night ?? # Routine - DVT PPx: heparin drip - Diet: Healthy heart diet, NPO at midnight for CABG tomorrow - Code Status: FULL - Dispo: CVCC Katty Hahn, M3 [facility] Cardiology S1 (Pager [phone]) Plan of Care - Stephanie Godoy RN - 07/06/2017 5:00 AM EST Problem: Patient Care Overview Goal: Plan of Care Review 07/06/17 0956 Coping/Psychosocial Plan Of Care Reviewed With patient;family [...] without difficulty. Lasix given in labor relations officer, 1.4 L out at this time. Pt [...] Outcome: Ongoing (Interventions Implemented as Appropriate) 07/06/17 5666 Cardiac: ACS (Acute Coronary Syndrome) Problems Assessed [...] [facility] CARDIOLOGY [place], [place] [address] (Wo rk) 06/10/2022 Office Visit Dermatology Laura Scherer MD [facility] [address]-DERMAT OLOGY [place], [place] [address] (Wo rk) Scheduled Orders Name [...] procedure are i n the results section. FLATLOCK SEWING MACHINE OPERATOR SCAN 07/15/2017 12:00 Res ults for [...] Routine 07/08/2017 4:00 Results f or this ([facility] AM EST procedure are i n the [...] Routine 07/06/2017 7:40 Results f or this ([facility] PM EST procedure are i n the [...] Timed 07/06/2017 2:10 Results f or this ([facility] PM EST procedure are i n the [...] section. TYPE AND SCREEN Routine 07/06/2017 12:00 ([facility]SHANDA[place] PM EST APTT STAT 07/06/2017 11:24 Results [...] Routine 07/06/2017 8:10 Results f or this ([facility] AM EST procedure are i n the [...] Routine 07/06/2017 2:20 Results f or this ([facility] AM EST procedure are i n the [...] Routine 07/05/2017 8:20 Results f or this ([facility] PM EST procedure are i n the [...] Timed 07/05/2017 4:55 Results f or this ([facility] PM EST procedure are i n the [...] EXAMINATION: XR CHEST PA AND LATERAL (GE Trony SolarIC) CLINICAL HISTORY: CABG x 3 TECHNIQUE: PA [...] Teague APRN IMG DX ORDERABLES SCAN DOC: FLATLOCK SEWING MACHINE OPERATOR (07/15/2017 12:00 AM EST) Narrative 07/15/2017 [...] Signature POC Glucose 186 65 - [address] [facility] mg/dL [facility] Comment: Supplemental ranges: <140 mg/dL before meals <180 mg/dL all other times of the day Specimen Anatomical Collection Method Collection Time Receive d Time (Source) Location / / Volume Laterality Blood specimen 07/14/2017 11:56 7 (specimen) AM EST 11:56 AM EST Yuan Webber MD POINT OF CARE TEST ORDERABLE S Performing Organization Address City/State/ZIP Code Phon e Number [address] POCT Glucose (07/14/2017 7:52 AM EST) athologist Signature POC Glucose 126 65 - 199 [facility] Comment: Supplemental ranges: <140 mg/dL before meals <180 mg/dL all other times of the day Specimen Anatomical Collection Method Collection Time Receive d Time (Source) Location / / Volume Laterality Blood specimen 07/14/2017 7:52 AM 017 7:52 (specimen) EST AM EST Yuan Webber MD POINT OF CARE TEST ORDERABLE S Performing Organization Address City/State/[place] [address] (ABNORMAL) Prothrombin Time (07/14/2017 [...] [place] STACIE HEMATOLOGY ORDERABLES Performing Organization Address City/[facility]/ZIP Code Phon e Number [address] Potassium (07/14/2017 4:46 AM EST) athologist [facility] Potassium 4.3 3.5 - 5.[address] [facility] mmol/L [facility] Comment: Please note: ??Patients with [...] [place] STACIE CHEMISTRY ORDERABLES Performing Organization Address City/[facility]/ZIP Code Phon e Number [address] POCT Glucose (07/14/2017 4:34 AM EST) athologist Signature POC Glucose 115 65 - [address] [facility] mg/dL [facility] Comment: Supplemental ranges: <140 mg/dL before meals <180 mg/dL all other times of the day Specimen Anatomical Collection Method Collection Time Receive d Time (Source) Location / / Volume Laterality Blood specimen 07/14/2017 4:34 AM 017 4:34 (specimen) EST AM EST Yuan Webber MD POINT OF CARE TEST ORDERABLE S Performing Organization Address City/State/[place] [address] POCT Glucose (07/13/2017 11:33 PM EST) athologist Signature POC Glucose 132 65 - 199 [place] mg/dL [facility] Comment: Supplemental ranges: <140 mg/dL before meals <180 mg/dL all other times of the day Specimen Anatomical Collection Method Collection Time Receive d Time (Source) Location / / Volume Laterality Blood specimen 07/13/2017 11:33 7 (specimen) PM EST 11:33 PM EST Yuan Webber MD POINT OF CARE TEST ORDERABLE S Performing Organization Address City/State/[place] [address] POCT Glucose (07/13/2017 9:25 PM EST) athologist Signature POC Glucose 121 65 - 199 [facility] mg/dL [facility] Comment: Supplemental [...] Address City/State/ZIP Code Phon e Number [address] POCT Glucose (07/13/2017 4:55 PM EST) athologist Signature POC Glucose 79 65 - 199 [facility] mg/dL [facility] Comment: Supplemental ranges: <140 mg/dL before meals <180 mg/dL all other times of the day Specimen Anatomical Collection Method Collection Time Receive d Time (Source) Location / / Volume Laterality Blood specimen 07/13/2017 4:55 PM 017 4:55 (specimen) EST PM EST Yuan Webber MD POINT OF CARE TEST ORDERABLE S Performing Organization Address City/State/[place] [address] POCT Glucose (07/13/2017 11:16 AM EST) athologist Signature POC Glucose 163 65 - 199 [facility]dL [facility] Comment: Supplemental ranges: <140 mg/dL before meals <180 mg/dL all other times of the day Specimen Anatomical Collection Method Collection Time Receive d Time (Source) Location / / Volume Laterality Blood specimen 07/13/2017 11:16 7 (specimen) AM EST 11:16 AM EST Yuan Webber MD POINT OF CARE TEST ORDERABLE S Performing Organization Address City/[facility]/[place] [address] POCT Glucose (07/13/2017 8:07 AM EST) athologist Signature POC Glucose 96 65 - 199 [facility] mg/dL [facility] Comment: Supplemental ranges: <140 mg/dL before meals <180 mg/dL all other times of the day Specimen Anatomical Collection Method Collection Time Receive d Time (Source) Location / / Volume Laterality Blood specimen 07/13/2017 8:07 AM 017 8:07 (specimen) EST AM EST Yuan Webber MD POINT OF CARE TEST ORDERABLE S Performing Organization Address City/State/[place] [address] (ABNORMAL) Prothrombin Time (07/13/2017 [...] Agency Comment Spec In Lab Makayla Wilson DRAWING OPERATOR HEMATOLOGY ORDERABLES Performing Organization Address City/State/ZIP [place] [address] (ABNORMAL) Basic Metabolic Panel (non-fasting) (07/13/2017 4:26 AM EST) P athologist Signature Glucose Lvl 95 65 - [address] [facility] mg/dL [facility] Comment: Diabetes: >=200 mg/dL plus symp toms BUN 25 (H) 10 - 20 mg/dL [facility] Creatinine 1.19 0.80 - 1.50 mg/dL [facility] Sodium 143 135 - 145 mmol/L [facility] Potassium 3.7 3.5 - 5.0 mmol/L [facility] [...] Calcium 7.7 (L) 8.5 - 10.5 mg/dL [facility] Estimated GFR 60 >=60 [facility] Comment: The reported eGFR should be multiplied b y 1.2 for patients. The MDRD is not an appropriate measure o f renal function for patients with body mass extremes or in patients with acute kidney failure. http://[employer]CustEx/DHnkdep http://[employer]ust[employer]/DHMCnkf Specimen Anatomical Collection Method Collection Time Receive d Time (Source) Location / / Volume Laterality Blood specimen 07/13/2017 4:26 AM 017 4:46 (specimen) EST AM EST Resulting Agency Comment Spec In Lab Makayla Wilson APRN CHEMISTRY ORDERABLES Performing Organization Address City/State/ZIP Code Phon e Number [address] POCT Glucose (07/13/2017 3:52 AM EST) athologist Signature POC Glucose 93 65 - 199 [place] mg/dL [facility] Comment: Supplemental [...] Address City/State/ZIP Code Phon e Number [address] POCT Glucose (07/13/2017 12:21 AM EST) athologist Signature POC Glucose 80 65 - 199 [place] mg/dL [facility] Comment: Supplemental ranges: <140 mg/dL before meals <180 mg/dL all other times of the day Specimen Anatomical Collection Method Collection Time Receive d Time (Source) Location / / Volume Laterality Blood specimen 07/13/2017 12:21 7 (specimen) AM EST 12:21 AM EST Yuan Webber MD POINT OF CARE TEST ORDERABLE S Performing Organization Address City/[facility]/ZIP Code Phon e Number [address] POCT Glucose (07/12/2017 8:22 PM EST) athologist Signature POC Glucose 119 65 - 199 [place] mg/dL [facility] Comment: Supplemental ranges: <140 mg/dL before meals <180 mg/dL all other times of the day Specimen Anatomical Collection Method Collection Time Receive d Time (Source) Location / / Volume Laterality Blood specimen 07/12/2017 8:22 PM 017 8:22 (specimen) EST PM EST Yuan Webber MD POINT OF CARE TEST ORDERABLE S Performing Organization Address City/State/[place] [address] POCT Glucose (07/12/2017 4:02 PM EST) athologist Signature POC Glucose 114 65 - 199 [place] mg/dL [facility] Comment: Supplemental ranges: <140 mg/dL before meals <180 mg/dL all other times of the day Specimen Anatomical Collection Method Collection Time Receive d Time (Source) Location / / Volume Laterality Blood specimen 07/12/2017 4:02 PM 017 4:02 (specimen) EST PM EST Yuan Webber MD POINT OF CARE TEST ORDERABLE S Performing Organization Address City/State/[place] [address] POCT Glucose (07/12/2017 11:28 AM EST) athologist Signature POC Glucose 164 65 - 199 [place] mg/dL [facility] Comment: Supplemental ranges: <140 mg/dL before meals <180 mg/dL all other times of the day Specimen Anatomical Collection Method Collection Time Receive d Time (Source) Location / / Volume Laterality Blood specimen 07/12/2017 11:28 7 (specimen) AM EST 11:28 AM EST Yuan Webber MD POINT OF CARE TEST ORDERABLE S Performing Organization Address City/State/[place] [address] POCT Glucose (07/12/2017 7:34 AM EST) athologist Signature POC Glucose 109 65 - 199 [place] mg/dL [facility] Comment: Supplemental ranges: <140 mg/dL before meals <180 mg/dL all other times of the day Specimen Anatomical Collection Method Collection Time Receive d Time (Source) Location / / Volume Laterality Blood specimen 07/12/2017 7:34 AM 017 7:34 (specimen) EST AM EST Yuan Webber MD POINT OF CARE TEST ORDERABLE S Performing Organization Address City/State/ZIP [place] [address] (ABNORMAL) Basic Metabolic Panel (non-fasting) (07/12/2017 4:11 AM EST) athologist Signature Glucose Lvl 92 65 - [address] [facility] mg/dL [facility] Comment: Diabetes: >=200 mg/dL plus symp toms BUN 31 (H) 10 - 20 mg/dL [facility] Creatinine 1.23 0.80 - 1.50 mg/dL [facility] Sodium 145 135 - 145 mmol/L [facility] Potassium Not Perf 3.5 - 5.0 mmol/L [facility] Comment: Duplicate order Please [...] Calcium 8.1 (L) 8.5 - 10.5 mg/dL [facility] Estimated GFR 58 (L) >=60 [facility] Comment: The reported eGFR should be multiplied b y 1.2 for patients. The MDRD is not an appropriate measure o f renal function for patients with body mass extremes or in patients with acute kidney failure. http://[employer]ustEx/DHnkdep http://[employer]/DHnkf Specimen Anatomical Collection Method Collection Time Receive d Time (Source) Location / / Volume Laterality Blood specimen 07/12/2017 4:11 AM 017 8:57 (specimen) EST AM EST Resulting Agency Comment Spec [facility]ABLES Performing Organization Address [facility] [place] [address] (ABNORMAL) Prothrombin Time (07/12/2017 [...] Resulting Agency Comment Spec In Lab Makayla [facility] HEMATOLOGY ORDERABLES Performing Organization Address City/[facility] [place] [address] Potassium (07/12/2017 4:11 AM EST) athologist Signature Potassium 3.8 3.5 - 5.[address] [facility] mmol/L [facility] Comment: Please note: ??Patients with [...] Address City/State/ZIP Code Phon e Number [address] POCT Glucose (07/12/2017 4:10 AM EST) athologist Signature POC Glucose 90 65 - 199 [facility] mg/dL [facility] Comment: Supplemental ranges: <140 mg/dL before meals <180 mg/dL all other times of the day Specimen Anatomical Collection Method Collection Time Receive d Time (Source) Location / / Volume Laterality Blood specimen 07/12/2017 4:10 AM 017 4:10 (specimen) EST AM EST Yuan Webber MD POINT OF CARE TEST ORDERABLE S Performing Organization Address City/[facility]/ZIP Code Phon e Number [address] POCT Glucose (07/11/2017 11:57 PM EST) athologist Signature POC Glucose 98 65 - 199 [facility] mg/dL [facility] Comment: Supplemental ranges: <140 mg/dL before meals <180 mg/dL all other times of the day Specimen Anatomical Collection Method Collection Time Receive d Time (Source) Location / / Volume Laterality Blood specimen 07/11/2017 11:57 7 (specimen) PM EST 11:57 PM EST Yuan Webber MD POINT OF CARE TEST ORDERABLE S Performing Organization Address City/[facility]/[place] [address] POCT Glucose (07/11/2017 8:32 PM EST) athologist Signature POC Glucose 146 65 - 199 [facility] mg/dL [facility] Comment: Supplemental [...] Code Phon e Number [facility] [place] [id number] [facility] [address] XR Chest PA & [...] e xtubated, left chest tube removed, and [place]-Suzi catheter removed since the study. Atelectasis at [...] e xtubated, left chest tube removed, and [place]-Suzi catheter removed since the study. Atelectasis at [...] (H) 65 - 199 [place] mg/dL [facility] Comment: Supplemental ranges: <140 mg/dL before meals <180 mg/dL all other times of the day Specimen Anatomical Collection Method Collection Time Receive d Time (Source) Location / / Volume Laterality Blood specimen 07/11/2017 4:05 PM 017 4:05 (specimen) EST PM EST Yuan Webber MD POINT OF CARE TEST ORDERABLE S Performing Organization Address City/State/ZIP Code Phon e Number [address] POCT Glucose (07/11/2017 11:55 AM EST) athologist Signature POC Glucose 176 65 - 199 [place] mg/dL [facility] Comment: Supplemental ranges: <140 mg/dL before meals <180 mg/dL all other times of the day Specimen Anatomical Collection Method Collection Time Receive d Time (Source) Location / / Volume Laterality Blood specimen 07/11/2017 11:55 7 (specimen) AM EST 11:55 AM EST Yuan Webber MD POINT OF CARE TEST ORDERABLE S Performing Organization Address City/State/ZIP Code Phon e Number [address] POCT Glucose (07/11/2017 7:53 AM EST) athologist Signature POC Glucose 189 65 - 199 [place] mg/dL [facility] Comment: Supplemental [...] Address City/State/ZIP Code Phon e Number [address] POCT Glucose (07/11/2017 4:22 AM EST) athologist Signature POC Glucose 151 65 - 199 [place] mg/dL [facility] Comment: Supplemental ranges: <140 mg/dL before meals <180 mg/dL all other times of the day Specimen Anatomical Collection Method Collection Time Receive d Time (Source) Location / / Volume Laterality Blood specimen 07/11/2017 4:22 AM 017 4:22 (specimen) EST AM EST Yuan Webber MD POINT OF CARE TEST ORDERABLE S Performing Organization Address City/[facility]/[place] [address] Potassium (07/11/2017 2:20 AM EST) P athologist Signature Potassium 4.5 3.5 - 5.[address] [facility] mmol/L [facility] Comment: Please note: ??Patients with [...] Webber MD CHEMISTRY ORDERABLES Performing Organization Address City/[facility]/[place] [address] POCT Glucose (07/11/2017 12:17 AM EST) athologist Signature POC Glucose 162 65 - 199 [facility] mg/dL [facility] Comment: Supplemental ranges: <140 mg/dL before meals <180 mg/dL all other times of the day Specimen Anatomical Collection Method Collection Time Receive d Time (Source) Location / / Volume Laterality Blood specimen 07/11/2017 12:17 7 (specimen) AM EST 12:17 AM EST Yuan Webber MD POINT OF CARE TEST ORDERABLE S Performing Organization Address City/[facility]/[place] [address] POCT Glucose (07/10/2017 8:47 PM EST) athologist Signature POC Glucose 191 65 - 199 [place] mg/dL [facility] Comment: Supplemental ranges: <140 mg/dL before meals <180 mg/dL all other times of the day Specimen Anatomical Collection Method Collection Time Receive d Time (Source) Location / / Volume Laterality Blood specimen 07/10/2017 8:47 PM 017 8:47 (specimen) EST PM EST Yuan Webber MD POINT OF CARE TEST ORDERABLE S Performing Organization Address City/State/ZIP Code Phon e Number [address] POCT Glucose (07/10/2017 4:06 PM EST) athologist Signature POC Glucose 131 65 - 199 [facility] mg/dL [facility] Comment: Supplemental ranges: <140 mg/dL before meals <180 mg/dL all other times of the day Specimen Anatomical Collection Method Collection Time Receive d Time (Source) Location / / Volume Laterality Blood specimen 07/10/2017 4:06 PM 017 4:06 (specimen) EST PM EST Yuan Wbeber MD POINT OF CARE TEST ORDERABLE S Performing Organization Address City/State/ZIP Code Phon e Number [address] POCT Glucose (07/10/2017 3:08 PM EST) athologist Signature POC Glucose 151 65 - 199 [facility] mg/dL [facility] Comment: Supplemental [...] Address City/State/ZIP Code Phon e Number [address] POCT Glucose (07/10/2017 2:25 PM EST) P athologist Signature POC Glucose 146 65 - 199 [place] mg/dL [facility] Comment: Supplemental [...] Address City/State/ZIP Code Phon e Number [address] POCT Glucose (07/10/2017 1:23 PM EST) athologist Signature POC Glucose 166 65 - 199 [place] mg/dL [facility] Comment: Supplemental ranges: <140 mg/dL before meals <180 mg/dL all other times of the day Specimen Anatomical Collection Method Collection Time Receive d Time (Source) Location / / Volume Laterality Blood specimen 07/10/2017 1:23 PM 017 1:23 (specimen) EST PM EST Yuan Webber MD POINT OF CARE TEST ORDERABLE S Performing Organization Address City/State/[place] [address] POCT Glucose (07/10/2017 11:52 AM EST) athologist Signature POC Glucose 157 65 - 199 [place] mg/dL [facility] Comment: Supplemental [...] Address City/State/ZIP Code Phon e Number [address] POCT Glucose (07/10/2017 11:01 AM EST) athologist Signature POC Glucose 158 65 - 199 [place] mg/dL [facility] Comment: Supplemental ranges: <140 mg/dL before meals <180 mg/dL all other times of the day Specimen Anatomical Collection Method Collection Time Receive d Time (Source) Location / / Volume Laterality Blood specimen 07/10/2017 11:01 7 (specimen) AM EST 11:01 AM EST Yuan Webber MD POINT OF CARE TEST ORDERABLE S Performing Organization Address City/State/[place] [address] POCT Glucose (07/10/2017 9:54 AM EST) P athologist Signature POC Glucose 160 65 - 199 [place] mg/dL [facility] Comment: Supplemental ranges: <140 mg/dL before meals <180 mg/dL all other times of the day Specimen Anatomical Collection Method Collection Time Receive d Time (Source) Location / / Volume Laterality Blood specimen 07/10/2017 9:54 AM 017 9:54 (specimen) EST AM EST Yuan Webber MD POINT OF CARE TEST ORDERABLE S Performing Organization Address City/State/[place] [address] POCT Glucose (07/10/2017 8:58 AM EST) P athologist Signature POC Glucose 183 65 - 199 [place] mg/dL [facility] Comment: Supplemental ranges: <140 mg/dL before meals <180 mg/dL all other times of the day Specimen Anatomical Collection Method Collection Time Receive d Time (Source) Location / / Volume Laterality Blood specimen 07/10/2017 8:58 AM 017 8:58 (specimen) EST AM EST Yuan Webber MD POINT OF CARE TEST ORDERABLE S Performing Organization Address City/State/[place] [address] POCT Glucose (07/10/2017 8:01 AM EST) P athologist Signature POC Glucose 173 65 - 199 [place] mg/dL [facility] Comment: Supplemental ranges: <140 mg/dL before meals <180 mg/dL all other times of the day Specimen Anatomical Collection Method Collection Time Receive d Time (Source) Location / / Volume Laterality Blood specimen 07/10/2017 8:01 AM 017 8:01 (specimen) EST AM EST Yuan Webber MD POINT OF CARE TEST ORDERABLE S Performing Organization Address City/[facility]/ZIP Code Phon e Number [address] POCT Glucose (07/10/2017 7:05 AM EST) athologist Signature POC Glucose 166 65 - 199 [facility] Comment: Supplemental ranges: <140 mg/dL before meals <180 mg/dL all other times of the day Specimen Anatomical Collection Method Collection Time Receive d Time (Source) Location / / Volume Laterality Blood specimen 07/10/2017 7:05 AM 017 7:05 (specimen) EST AM EST Yuan Webber MD POINT OF CARE TEST ORDERABLE S Performing Organization Address City/[facility]/ZIP Code Phon e Number [address] POCT Glucose (07/10/2017 6:00 AM EST) athologist Signature POC Glucose 162 65 - 199 [facility]dL [facility] Comment: Supplemental ranges: <140 mg/dL before meals <180 mg/dL all other times of the day Specimen Anatomical Collection Method Collection Time Receive d Time (Source) Location / / Volume Laterality Blood specimen 07/10/2017 6:00 AM 017 6:00 (specimen) EST AM EST Yuan Webber MD POINT OF CARE TEST ORDERABLE S Performing Organization Address City/State/ZIP Code Phon e Number [address] (ABNORMAL) Differential, Automated (07/10/2017 4:28 AM EST) [facility] gist Method Time Signature Neutrophils % 87.9 % [facility] Neutr Abs (ANC) 10.70 (H) 1.70 - [facility] 6.10 [facility] x10(3)/[facility] L LABORATORY Lymphocytes % 3.9 % [facility] Lymphocytes Abs 0.5 (L) 0.9 - 3.[address] [facility] x10(3)/[facility] LABORATORY Monocytes % 7.0 % [facility] Monocyte Abs 0.8 0.3 - 0.[address] [facility] x10(3)/[facility] LABORATORY Eosinophils % 0.3 % [facility] Eosinophils Abs 0.0 0.0 - 0.[address] [facility] x10(3)/[facility] LABORATORY Basophils % 0.2 % [facility] Basophils Abs 0.0 0.0 - 0.[address] [facility] x10(3)/[facility] LABORATORY Immature [...] Organization Address City/State/ZIP [place] [address] (ABNORMAL) Hemogram (07/10/2017 4:28 AM EST) Analysis Performed At Patho logist Time Signature WBC 12.2 (H) 4.0 - 9.[address] [facility] x10(3)/[facility] LABORATORY RBC 3.31 (L) 4.58 - [facility] 5.54 [facility] x10(6)/[facility] LABORATORY Hemoglobin 9.8 (L) 13.7 - [place] 16.5 gm/dL [facility] Hematocrit 30.0 (L) 40.5 - [place] 48.5 % [facility] MCV 90.6 82.9 - [place] 93.1 [facility] LABORATORY MCH 29.6 27.5 - [place] 32.1 pg [facility] MCHC 32.7 32.0 - [place] 35.7 gm/dL [facility] Platelets 135 (L) 145 - [address] [facility] x10(3)/[facility] LABORATORY RDWSD 50.8 (H) 36.0 - [place] 45.0 [facility] LABORATORY RDWCV 15.4 (H) 11.4 - [facility] 13.8 % [facility] MPV 10.0 7.6 - 12.9 [facility] LABORATORY nRBC % Auto 0.0 % [facility] nRBC Abs Auto 0.000 0.000 - [place] 0.000 [facility] x10(3)/[facility] LABORATORY Specimen Anatomical Collection Method Collection Time Receive d Time (Source) Location / / Volume Laterality Blood specimen 07/10/2017 4:28 AM 017 4:36 (specimen) EST AM EST Resulting Agency Comment Spec In Lab Yuan Webber MD HEMATOLOGY ORDERABLES Performing Organization Address City/State/ZIP [place] [address] (ABNORMAL) Basic Metabolic Panel (non-fasting) (07/10/2017 4:28 AM EST) P athologist Signature Glucose Lvl 178 65 - [address] [facility] mg/dL [facility] Comment: Diabetes: [...] Calcium 7.4 (L) 8.5 - 10.5 mg/dL [facility] Estimated GFR 60 >=60 [facility] Comment: The reported eGFR should be multiplied b y 1.2 for patients. The MDRD is not an appropriate measure o f renal function for patients with body mass extremes or in patients with acute kidney failure. http://[employer]/DHnkdep http://[employer]/DHMCnkf Specimen Anatomical Collection Method Collection Time Receive d Time (Source) Location / / Volume Laterality Blood specimen 07/10/2017 4:28 AM 017 4:36 (specimen) EST AM EST Resulting Agency Comment Spec In Lab Yuan Webber MD CHEMISTRY ORDERABLES Performing Organization Address City/State/ZIP Code Phon e Number [address] POCT Glucose (07/10/2017 4:26 AM EST) athologist Signature POC Glucose 176 65 - [address] [facility] mg/dL [facility] Comment: Supplemental ranges: <140 mg/dL before meals <180 mg/dL all other times of the day Specimen Anatomical Collection Method Collection Time Receive d Time (Source) Location / / Volume Laterality Blood specimen 07/10/2017 4:26 AM 017 4:26 (specimen) EST AM EST Yuan Webber MD POINT OF CARE TEST ORDERABLE S Performing Organization Address City/State/[place] [address] (ABNORMAL) POCT Glucose (07/10/2017 3:06 AM EST) athologist Signature POC Glucose 204 (H) 65 - 199 [place] mg/dL [facility] Comment: Supplemental ranges: <140 mg/dL before meals <180 mg/dL all other times of the day Specimen Anatomical Collection Method Collection Time Receive d Time (Source) Location / / Volume Laterality Blood specimen 07/10/2017 3:06 AM 017 3:06 (specimen) EST AM EST Yuan Webber MD POINT OF CARE TEST ORDERABLE S Performing Organization Address City/State/[place] [address] (ABNORMAL) POCT Glucose (07/10/2017 2:10 AM EST) athologist Signature POC Glucose 203 (H) 65 - 199 [facility] Comment: Supplemental ranges: <140 mg/dL before meals <180 mg/dL all other times of the day Specimen Anatomical Collection Method Collection Time Receive d Time (Source) Location / / Volume Laterality Blood specimen 07/10/2017 2:10 AM 017 2:10 (specimen) EST AM EST Yuan Webber MD POINT OF CARE TEST ORDERABLE S Performing Organization Address City/State/[place] [address] POCT Glucose (07/10/2017 1:09 AM EST) athologist Signature POC Glucose 196 65 - 199 [facility] Comment: Supplemental ranges: <140 mg/dL before meals <180 mg/dL all other times of the day Specimen Anatomical Collection Method Collection Time Receive d Time (Source) Location / / Volume Laterality Blood specimen 07/10/2017 1:09 AM 017 1:09 (specimen) EST AM EST Yuan Webber MD POINT OF CARE TEST ORDERABLE S Performing Organization Address City/State/[place] [address] POCT Glucose (07/10/2017 12:10 AM EST) athologist Signature POC Glucose 173 65 - 199 [place] mg/dL [facility] Comment: Supplemental [...] Address City/State/ZIP Code Phon e Number [address] POCT Glucose (07/09/2017 11:01 PM EST) athologist Signature POC Glucose 140 65 - 199 [place] mg/dL [facility] Comment: Supplemental ranges: <140 mg/dL before meals <180 mg/dL all other times of the day Specimen Anatomical Collection Method Collection Time Receive d Time (Source) Location / / Volume Laterality Blood specimen 07/09/2017 11:01 7 (specimen) PM EST 11:01 PM EST Yuan Webber MD POINT OF CARE TEST ORDERABLE S Performing Organization Address City/State/ZIP Code Phon e Number [address] POCT Glucose (07/09/2017 10:05 PM EST) athologist Signature POC Glucose 144 65 - 199 [place] mg/dL [facility] Comment: Supplemental [...] Address City/State/ZIP Code Phon e Number [address] POCT Glucose (07/09/2017 9:31 PM EST) athologist Signature POC Glucose 121 65 - 199 [place] mg/dL [facility] Comment: Supplemental ranges: <140 mg/dL before meals <180 mg/dL all other times of the day Specimen Anatomical Collection Method Collection Time Receive d Time (Source) Location / / Volume Laterality Blood specimen 07/09/2017 9:31 PM 017 9:31 (specimen) EST PM EST Yuan Webber MD POINT OF CARE TEST ORDERABLE S Performing Organization Address City/State/[place] [address] POCT Glucose (07/09/2017 9:03 PM EST) athologist Signature POC Glucose 98 65 - 199 [place] mg/dL [facility] Comment: Supplemental ranges: <140 mg/dL before meals <180 mg/dL all other times of the day Specimen Anatomical Collection Method Collection Time Receive d Time (Source) Location / / Volume Laterality Blood specimen 07/09/2017 9:03 PM 017 9:03 (specimen) EST PM EST Yuan Webber MD POINT OF CARE TEST ORDERABLE S Performing Organization Address City/State/[place] [address] POCT Glucose (07/09/2017 8:09 PM EST) athologist Signature POC Glucose 117 65 - 199 [place] mg/dL [facility] Comment: Supplemental ranges: <140 mg/dL before meals <180 mg/dL all other times of the day Specimen Anatomical Collection Method Collection Time Receive d Time (Source) Location / / Volume Laterality Blood specimen 07/09/2017 8:09 PM 017 8:09 (specimen) EST PM EST Yuan Webber MD POINT OF CARE TEST ORDERABLE S Performing Organization Address City/State/[place] [address] POCT Glucose (07/09/2017 5:40 PM EST) athologist Signature POC Glucose 155 65 - 199 [place] mg/dL [facility] Comment: Supplemental ranges: <140 mg/dL before meals <180 mg/dL all other times of the day Specimen Anatomical Collection Method Collection Time Receive d Time (Source) Location / / Volume Laterality Blood specimen 07/09/2017 5:40 PM 017 5:40 (specimen) EST PM EST Yuan Webber MD POINT OF CARE TEST ORDERABLE S Performing Organization Address City/State/ZIP Code Phon e Number [address] POCT Glucose (07/09/2017 4:24 PM EST) athologist Signature POC Glucose 164 65 - 199 [place] mg/dL [facility] Comment: Supplemental [...] Address City/State/ZIP Code Phon e Number [address] POCT Glucose (07/09/2017 3:19 PM EST) athologist Signature POC Glucose 166 65 - 199 [place] mg/dL [facility] Comment: Supplemental ranges: <140 mg/dL before meals <180 mg/dL all other times of the day Specimen Anatomical Collection Method Collection Time Receive d Time (Source) Location / / Volume Laterality Blood specimen 07/09/2017 3:19 PM 017 3:19 (specimen) EST PM EST Yuan Webber MD POINT OF CARE TEST ORDERABLE S Performing Organization Address City/State/[place] [address] POCT Glucose (07/09/2017 2:26 PM EST) athologist Signature POC Glucose 179 65 - 199 [facility] mg/dL [facility] Comment: Supplemental ranges: <140 mg/dL before meals <180 mg/dL all other times of the day Specimen Anatomical Collection Method Collection Time Receive d Time (Source) Location / / Volume Laterality Blood specimen 07/09/2017 2:26 PM 017 2:26 (specimen) EST PM EST Yuan Webber MD POINT OF CARE TEST ORDERABLE S Performing Organization Address City/State/[place] [address] (ABNORMAL) POCT Glucose (07/09/2017 1:29 PM EST) athologist Signature POC Glucose 210 (H) 65 - 199 [place] mg/dL [facility] Comment: Supplemental ranges: <140 mg/dL before meals <180 mg/dL all other times of the day Specimen Anatomical Collection Method Collection Time Receive d Time (Source) Location / / Volume Laterality Blood specimen 07/09/2017 1:29 PM 017 1:29 (specimen) EST PM EST Yuan Webber MD POINT OF CARE TEST ORDERABLE S Performing Organization Address City/State/[place] [address] POCT Glucose (07/09/2017 12:20 PM EST) athologist Signature POC Glucose 172 65 - 199 [place] mg/dL [facility] Comment: Supplemental ranges: <140 mg/dL before meals <180 mg/dL all other times of the day Specimen Anatomical Collection Method Collection Time Receive d Time (Source) Location / / Volume Laterality Blood specimen 07/09/2017 12:20 7 (specimen) PM EST 12:20 PM EST Yuan Webber MD POINT OF CARE TEST ORDERABLE S Performing Organization Address City/State/[place] [address] POCT Glucose (07/09/2017 11:24 AM EST) athologist Signature POC Glucose 156 65 - 199 [place] mg/dL [facility] Comment: Supplemental [...] Address City/State/ZIP Code Phon e Number [address] POCT Glucose (07/09/2017 11:11 AM EST) athologist Signature POC Glucose 172 65 - 199 [place] mg/dL [facility] Comment: Supplemental ranges: <140 mg/dL before meals <180 mg/dL all other times of the day Specimen Anatomical Collection Method Collection Time Receive d Time (Source) Location / / Volume Laterality Blood specimen 07/09/2017 11:11 7 (specimen) AM EST 11:11 AM EST Yuan Webber MD POINT OF CARE TEST ORDERABLE S Performing Organization Address City/State/[place] [address] POCT Glucose (07/09/2017 10:08 AM EST) athologist Signature POC Glucose 176 65 - 199 [facility] Comment: Supplemental ranges: <140 mg/dL before meals <180 mg/dL all other times of the day Specimen Anatomical Collection Method Collection Time Receive d Time (Source) Location / / Volume Laterality Blood specimen 07/09/2017 10:08 7 (specimen) AM EST 10:08 AM EST Yuan Webber MD POINT OF CARE TEST ORDERABLE S Performing Organization Address City/State/[place] [address] POCT Glucose (07/09/2017 8:02 AM EST) athologist Signature POC Glucose 178 65 - 199 [facility] [place] mg/dL [facility] Comment: Supplemental ranges: <140 mg/dL before meals <180 mg/dL all other times of the day Specimen Anatomical Collection Method Collection Time Receive d Time (Source) Location / / Volume Laterality Blood specimen 07/09/2017 8:02 AM 017 8:02 (specimen) EST AM EST Yuan Webber MD POINT OF CARE TEST ORDERABLE S Performing Organization Address City/State/ZIP [place] [address] (ABNORMAL) BLOOD GAS 2 ARTERIAL (07/09/2017 5:37 AM EST) Analysis Performed At Patho logist Time Signature pH Art 7.36 7.35 - [facility] 7.45 [facility] pCO2 Art 38 35 - 45 [facility] LABORATORY pO2 Art 79 (L) 85 - 104 [facility]ORATORY HCO3 Art 20.9 20.0 - [facility] 26.0 [facility] mmol/[facility] BE Art -4.6 (L) -3.0 - 3.[address] [facility] mmol/L [facility] Hgb Blood Gas 10.5 (L) 13.7 - [facility] 16.5 gm/dL [facility] O2HB Art 93.8 (L) 94.0 - [facility] 97.0 % [facility] COHB Art 0.3 % [facility] Comment: Nonsmokers: 0.5-1.5% COHB Smokers: Variable, but usually less than 10% Toxic: 20-30% COHB Lethal: Greater than 60% COHB METHB Art 0.6 <=1.5 % [facility] Na Whole Blood 141 135 [...] [facility] FIO2 Art 40 % [facility] PF Ratio Art 198 [facility] Specimen Anatomical Collection Method Collection Time Receive d Time (Source) Location / / Volume Laterality Blood specimen 07/09/2017 5:37 AM 017 5:37 (specimen) EST AM EST Yuan Webber MD CHEMISTRY ORDERABLES Performing Organization Address City/[facility]/ZIP Code Phon e Number [address] POCT Glucose (07/09/2017 3:27 AM EST) athologist Signature POC Glucose 192 65 - 199 [facility] Comment: Supplemental ranges: <140 mg/dL before meals <180 mg/dL all other times of the day Specimen Anatomical Collection Method Collection Time Receive d Time (Source) Location / / Volume Laterality Blood specimen 07/09/2017 3:27 AM 017 3:27 (specimen) EST AM EST Yuan Webber MD POINT OF CARE TEST ORDERABLE S Performing Organization Address City/[facility]/[place] [address] (ABNORMAL) Basic Metabolic Panel (non-fasting) (07/09/2017 2:30 AM EST) athologist Signature Glucose Lvl 179 65 - 199 [facility] mg/dL [facility] Comment: Diabetes: >=200 mg/dL plus symp toms BUN 17 10 - 20 mg/dL [facility] Creatinine 1.34 0.80 - 1.50 mg/dL [facility] Sodium 144 135 - 145 mmol/L [facility] Potassium Not Perf 3.5 - 5.0 mmol/L [facility] Comment: Duplicate order Please [...] Calcium 7.1 (L) 8.5 - 10.5 mg/dL [facility] Comment: result rechecked-[id number] Estimated GFR 53 (L) >=60 [facility] Comment: The reported eGFR should be multiplied b y 1.2 for patients. The MDRD is not an appropriate measure o f renal function for patients with body mass extremes or in patients with acute kidney failure. http://[employer]/DHnkdep http://[employer]/DHMCnkf Specimen Anatomical Collection Method Collection Time Receive d Time (Source) Location / / Volume Laterality Blood specimen Venous Draw / 07/09/2017 2:30 AM 2016 2:42 (specimen) Unknown EST AM EST Resulting Agency Comment Spec In Lab Yuan Webber MD CHEMISTRY ORDERABLES Performing Organization Address City/State/[facility] [place] [address] (ABNORMAL) Potassium (07/09/2017 2:30 AM EST) P athologist Signature Potassium 5.1 (H) 3.5 - 5.[address] [facility] mmol/L [facility] Comment: Please note: ??Patients with [...] City/State/ZIP Code Phon e Number [place] [id number] (ABNORMAL) Hemogram (07/09/2017 2:30 AM EST) Analysis Performed At Patho logist Time Signature WBC 12.5 (H) 4.0 - 9.5 [facility] x10(3)/[facility] LABORATORY RBC 3.38 (L) 4.58 - [place] RY[place] 5.54 [facility] x10(6)/[facility] LABORATORY Hemoglobin 10.1 (L) 13.7 - [facility] 16.5 gm/dL [facility] Hematocrit 30.3 (L) 40.5 - [facility] 48.5 % [facility] MCV 89.6 82.9 - [facility] 93.1 [facility] LABORATORY MCH 29.9 27.5 - [place] RY[place] 32.1 pg [facility] MCHC 33.3 32.0 - [place] RY[place] 35.7 gm/dL [facility] Platelets 127 (L) 145 - [address] [facility] x10(3)/[facility] LABORATORY RDWSD 49.3 (H) 36.0 - [place] RYAN 45.0 [facility] LABORATORY RDWCV 15.2 (H) 11.4 - [facility] 13.8 % [facility] MPV 9.9 7.6 - 12.9 [facility] LABORATORY nRBC % Auto 0.0 % [facility] nRBC Abs Auto 0.000 0.000 - [facility] 0.000 [facility] x10(3)/[facility] LABORATORY Specimen Anatomical Collection Method Collection Time Receive d Time (Source) Location / / Volume Laterality Blood specimen 07/09/2017 2:30 AM 017 2:41 (specimen) EST AM EST Resulting Agency Comment Spec In Lab Yuan Webber MD HEMATOLOGY ORDERABLES Performing Organization Address City/State/ZIP [place] [address] [facility] [address] POCT Glucose (07/09/2017 2:10 AM EST) P athologist Signature POC Glucose 169 65 - 199 [place] mg/dL [facility] Comment: Supplemental ranges: <140 mg/dL before meals <180 mg/dL all other times of the day Specimen Anatomical Collection Method Collection Time Receive d Time (Source) Location / / Volume Laterality Blood specimen 07/09/2017 2:10 AM 017 2:10 (specimen) EST AM EST Yuan Webber MD POINT OF CARE TEST ORDERABLE S Performing Organization Address City/[facility]/[place] [address] POCT Glucose (07/09/2017 1:01 AM EST) P athologist Signature POC Glucose 173 65 - 199 [place] mg/dL [facility] Comment: Supplemental ranges: <140 mg/dL before meals <180 mg/dL all other times of the day Specimen Anatomical Collection Method Collection Time Receive d Time (Source) Location / / Volume Laterality Blood specimen 07/09/2017 1:01 AM 017 1:01 (specimen) EST AM EST Yuan Webber MD POINT OF CARE TEST ORDERABLE S Performing Organization Address City/State/[place] [address] Blood culture (07/09/2017 12:40 AM EST) Patholo gist Method Time Signature Blood Culture No growth [place] ZHAORYAN at 5 days. [facility] Specimen Anatomical Collection Method Collection Time Receive d Time (Source) Location / / Volume Laterality Blood specimen STRUCTURE OF RIGHT 07/09/2017 12:40 3:58 (specimen) UPPER LIMB / AM EST AM EST Unknown Resulting Agency Comment Spec In Lab Yuan Webber MD MICROBIOLOGY - BLOOD ORDERAB LES Performing Organization Address City/State/[place] [address] Blood culture (07/09/2017 12:30 AM EST) Patholo gist Method Time Signature Blood Culture No growth K[place]ALINA ZHAORYAN at 5 days. [facility] Specimen Anatomical Collection Method Collection Time Receive d Time (Source) Location / / Volume Laterality Blood specimen STRUCTURE OF LEFT 07/09/2017 12:30 1211/2016 3:59 (specimen) UPPER LIMB / AM EST AM EST Unknown Resulting Agency Comment Spec In Lab Yuan Webber MD MICROBIOLOGY - BLOOD ORDERAB LES Performing Organization Address City/[facility]/[place] [address] (ABNORMAL) Urinalysis Microscopic Exam (07/09/2017 12:05 AM EST) Analysis Performed At Patho logist Time Signature RBC UA 32 (H) 0 - 3 /HPF [facility] WBC UA 5 (H) 0 - 3 /HPF [facility] Squam Epith UA <1 <=4 /HPF [facility] Hyaline Cast 17 (H) 0 - 2 /LPF [facility] Gran Cast UA 1 (H) <=0 /LPF [facility] Uric Ac Bianca Rare (A) None /HPF [facility] Specimen (Source) Anatomical Collection Method Collection Time Re ceived Time Location / / Volume Laterality Urine specimen 07/09/2017 12:05 7 obtained via AM EST 12:39 AM EST indwelling urinary catheter (specimen) Resulting Agency Comment Spec In Lab Yuan Webber MD URINE ORDERABLES Performing Organization Address City/[facility]/[place] [address] (ABNORMAL) Urinalysis with reflex Culture (07/09/2017 12:05 AM EST) Patholo gist Method Time Signature Glucose UA Negative Negative [facility] mg/dL [facility] Protein UA 30 (A) Negative [facility] mg/dL [facility] Bilirubin UA Negative Negative [facility] mg/dL [facility] Comment: Clinical correlation required for positi ve Urine Bilirubin results as false positive may occur with some drugs and d rug related products. If a false positive is suspected a serum total bili yeager should be considered if clinically indicated. Urobilinogen UA Normal Normal mg/dL [facility] pH UA 5.0 5.0 - 8.0 [facility] Blood UA Moderate (A) Negative mg/dL [facility] Ketones UA Negative Negative mg/dL [facility] Nitrite UA Negative Negative [facility] Leukocytes UA Negative Negative [facility] LABORATORY Appearance UA Hazy (A) Clear [facility] Spec Superior UA 1.025 1.002 - 1.030 [facility] LAB[facility]ORY Color UA Yellow Yellow [facility] Culture Reflexed No [facility] Specimen (Source) Anatomical Collection Method Collection Time Re ceived Time Location / / Volume Laterality Urine specimen 07/09/2017 12:05 7 obtained via AM EST 12:39 AM EST indwelling urinary catheter (specimen) Resulting Agency Comment Spec In Lab Yuan Webber MD URINE ORDERABLES Performing Organization Address City/[facility]/ZIP Code Phon e Number [address] POCT Glucose (07/08/2017 11:01 PM EST) athologist Signature POC Glucose 191 65 - [address] [facility] mg/dL [facility] Comment: Supplemental ranges: <140 mg/dL before meals <180 mg/dL all other times of the day Specimen Anatomical Collection Method Collection Time Receive d Time (Source) Location / / Volume Laterality Blood specimen 07/08/2017 11:01 7 (specimen) PM EST 11:01 PM EST Yuan Webber MD POINT OF CARE TEST ORDERABLE S Performing Organization Address City/State/ZIP Code Phon e Number [address] POCT Glucose (07/08/2017 10:04 PM EST) athologist Signature POC Glucose 198 65 - 199 [facility] Comment: Supplemental ranges: <140 mg/dL before meals <180 mg/dL all other times of the day Specimen Anatomical Collection Method Collection Time Receive d Time (Source) Location / / Volume Laterality Blood specimen 07/08/2017 10:04 7 (specimen) PM EST 10:04 PM EST Yuan Webber MD POINT OF CARE TEST ORDERABLE S Performing Organization Address City/State/[place] [address] Prepare Albumin 5% in [...] [facility]LO[facility] ORDERABLES Performing Organization Address City/[facility]/[place] [address] POCT Glucose (07/08/2017 8:28 PM EST) P athologist Signature POC Glucose 195 65 - 199 [facility] mg/dL [facility] Comment: Supplemental ranges: <140 mg/dL before meals <180 mg/dL all other times of the day Specimen Anatomical Collection Method Collection Time Receive d Time (Source) Location / / Volume Laterality Blood specimen 07/08/2017 8:28 PM 017 8:28 (specimen) EST PM EST Yuan Webber MD POINT OF CARE TEST ORDERABLE S Performing Organization Address City/State/[place] [address] (ABNORMAL) POCT Glucose (07/08/2017 7:13 PM EST) P athologist Signature POC Glucose 220 (H) 65 - 199 [facility] mg/dL [facility] Comment: Supplemental ranges: <140 mg/dL before meals <180 mg/dL all other times of the day Specimen Anatomical Collection Method Collection Time Receive d Time (Source) Location / / Volume Laterality Blood specimen 07/08/2017 7:13 PM 017 7:13 (specimen) EST PM EST Yuan Webber MD POINT OF CARE TEST ORDERABLE S Performing Organization Address City/State/ZIP [place] [address] POCT Glucose (07/08/2017 5:04 PM EST) P athologist Signature POC Glucose 147 65 - [address] [facility] mg/dL [facility] Comment: Supplemental ranges: <140 mg/dL before meals <180 mg/dL all other times of the day Specimen Anatomical Collection Method Collection Time Receive d Time (Source) Location / / Volume Laterality Blood specimen 07/08/2017 5:04 PM 017 5:04 (specimen) EST PM EST Yuan Webber MD POINT OF CARE TEST ORDERABLE S Performing Organization Address City/State/[place] [address] (ABNORMAL) BLOOD GAS 2 ARTERIAL (07/08/2017 4:13 PM EST) Analysis Performed At Patho logist Time Signature pH Art 7.38 7.35 - [facility] 7.45 [facility] pCO2 Art 36 35 - 45 [facility] LABORATORY pO2 Art 91 85 - 104 [facility] LABORATORY HCO3 Art 20.9 20.0 - [facility] 26.0 [facility] mmol/L [facility] LABORATORY BE Art -4.2 (L) -3.0 - 3.[address] [facility] mmol/L [facility] Hgb Blood Gas 11.7 (L) 13.7 - [facility] 16.5 gm/dL [facility] O2HB Art 95.1 94.0 - [facility] 97.0 % [facility] COHB Art 0.6 % [facility] Comment: Nonsmokers: 0.5-1.5% COHB Smokers: Variable, but usually less than 10% Toxic: 20-30% COHB Lethal: Greater than 60% COHB METHB Art 0.6 <=1.5 % [facility] Na Whole Blood 139 135 [...] [facility] FIO2 Art 40 % [facility] PF Ratio Art 228 [facility] Specimen Anatomical Collection Method Collection Time Receive d Time (Source) Location / / Volume Laterality Blood specimen 07/08/2017 4:13 PM 017 4:13 (specimen) EST PM EST Yuan Webber MD CHEMISTRY ORDERABLES Performing Organization Address City/[facility]/ZIP [facility] Phon e Number [address] POCT Glucose (07/08/2017 4:01 PM EST) athologist Signature POC Glucose 148 65 - 199 [facility] mg/dL [facility] Comment: Supplemental ranges: <140 mg/dL before meals <180 mg/dL all other times of the day Specimen Anatomical Collection Method Collection Time Receive d Time (Source) Location / / Volume Laterality Blood specimen 07/08/2017 4:01 PM 017 4:01 (specimen) EST PM EST Yuan Webber MD POINT OF CARE TEST ORDERABLE S Performing Organization Address City/[facility] Code Phon e Number [address] POCT Glucose (07/08/2017 3:21 PM EST) athologist Signature POC Glucose 118 65 - 199 [facility] mg/dL [facility] Comment: Supplemental ranges: <140 mg/dL before meals <180 mg/dL all other times of the day Specimen Anatomical Collection Method Collection Time Receive d Time (Source) Location / / Volume Laterality Blood specimen 07/08/2017 3:21 PM 017 3:21 (specimen) EST PM EST Yuan Webber MD POINT OF CARE TEST ORDERABLE S Performing Organization Address City/State/[place] [address] POCT Glucose (07/08/2017 2:01 PM EST) athologist Signature POC Glucose 129 65 - 199 [facility] mg/dL [facility] Comment: Supplemental ranges: <140 mg/dL before meals <180 mg/dL all other times of the day Specimen Anatomical Collection Method Collection Time Receive d Time (Source) Location / / Volume Laterality Blood specimen 07/08/2017 2:01 PM 017 2:01 (specimen) EST PM EST Yuan Webber MD POINT OF CARE TEST ORDERABLE S Performing Organization Address City/State/[place] [address] POCT Glucose (07/08/2017 11:53 AM EST) athologist Signature POC Glucose 156 65 - 199 [facility] mg/dL [facility] Comment: Supplemental ranges: <140 mg/dL before meals <180 mg/dL all other times of the day Specimen Anatomical Collection Method Collection Time Receive d Time (Source) Location / / Volume Laterality Blood specimen 07/08/2017 11:53 7 (specimen) AM EST 11:53 AM EST Yuan Webber MD POINT OF CARE TEST ORDERABLE S Performing Organization Address City/State/ZIP Code Phon e Number [address] POCT Glucose (07/08/2017 11:04 AM EST) athologist Signature POC Glucose 181 65 - 199 [facility] mg/dL [facility] Comment: Supplemental ranges: <140 mg/dL before meals <180 mg/dL all other times of the day Specimen Anatomical Collection Method Collection Time Receive d Time (Source) Location / / Volume Laterality Blood specimen 07/08/2017 11:04 7 (specimen) AM EST 11:04 AM EST Yuan Webber MD POINT OF CARE TEST ORDERABLE S Performing Organization Address City/[facility]/[place] [address] (ABNORMAL) POCT Glucose (07/08/2017 9:24 AM EST) athologist Signature POC Glucose 203 (H) 65 - [address] [facility] mg/dL [facility] Comment: Supplemental ranges: <140 mg/dL before meals <180 mg/dL all other times of the day Specimen Anatomical Collection Method Collection Time Receive d Time (Source) Location / / Volume Laterality Blood specimen 07/08/2017 9:24 AM 017 9:24 (specimen) EST AM EST Yuan Webber MD POINT OF CARE TEST ORDERABLE S Performing Organization Address City/[facility]/[place] [address] APTT (07/08/2017 8:40 AM EST) athologist Signature PTT 33 25 - 35 sec [facility] [...] Webber MD HEMATOLOGY ORDERABLES Performing Organization Address City/[facility]/[place] [address] (ABNORMAL) Prothrombin Time (07/08/2017 [...] Webber MD HEMATOLOGY ORDERABLES Performing Organization Address City/[facility]/[place] [address] (ABNORMAL) POCT Glucose (07/08/2017 7:38 AM EST) P athologist Signature POC Glucose 232 (H) 65 - 199 [facility] Comment: Supplemental ranges: <140 mg/dL before meals <180 mg/dL all other times of the day Specimen Anatomical Collection Method Collection Time Receive d Time (Source) Location / / Volume Laterality Blood specimen 07/08/2017 7:38 AM 017 7:38 (specimen) EST AM EST Yuan Webber MD POINT OF CARE TEST ORDERABLE S Performing Organization Address City/State/[place] [address] (ABNORMAL) POCT Glucose (07/08/2017 7:07 AM EST) P athologist Signature POC Glucose 234 (H) 65 - 199 [facility] Comment: Supplemental ranges: <140 mg/dL before meals <180 mg/dL all other times of the day Specimen Anatomical Collection Method Collection Time Receive d Time (Source) Location / / Volume Laterality Blood specimen 07/08/2017 7:07 AM 017 7:07 (specimen) EST AM EST Yuan Webber MD POINT OF CARE TEST ORDERABLE S Performing Organization Address City/State/[place] [address] (ABNORMAL) POCT Glucose (07/08/2017 6:04 AM EST) athologist Signature POC Glucose 225 (H) 65 - 199 [facility] mg/dL [facility] Comment: Supplemental ranges: <140 mg/dL before meals <180 mg/dL all other times of the day Specimen Anatomical Collection Method Collection Time Receive d Time (Source) Location / / Volume Laterality Blood specimen 07/08/2017 6:04 AM 017 6:04 (specimen) EST AM EST Yuan Webber MD POINT OF CARE TEST ORDERABLE S Performing Organization Address City/[facility]/[place] [address] (ABNORMAL) POCT Glucose (07/08/2017 5:31 AM EST) athologist Signature POC Glucose 216 (H) 65 - 199 [facility] mg/dL [facility] Comment: Supplemental ranges: <140 mg/dL before meals <180 mg/dL all other times of the day Specimen Anatomical Collection Method Collection Time Receive d Time (Source) Location / / Volume Laterality Blood specimen 07/08/2017 5:31 AM 017 5:31 (specimen) EST AM EST Yuan Webber MD POINT OF CARE TEST ORDERABLE S Performing Organization Address City/State/[place] [address] (ABNORMAL) POCT Glucose (07/08/2017 4:52 AM EST) athologist Signature POC Glucose 257 (H) 65 - 199 [facility] mg/dL [facility] Comment: Supplemental ranges: <140 mg/dL before meals <180 mg/dL all other times of the day Specimen Anatomical Collection Method Collection Time Receive d Time (Source) Location / / Volume Laterality Blood specimen 07/08/2017 4:52 AM 017 4:52 (specimen) EST AM EST Daphne Shahid MD POINT OF CARE TEST ORDERABLE S Performing Organization Address City/State/ZIP [place] [address] (ABNORMAL) BLOOD GAS 2 ARTERIAL (07/08/2017 4:04 AM EST) Analysis Performed At Patho logist Time Signature pH Art 7.30 (L) 7.35 - [facility] 7.45 [facility] pCO2 Art 41 35 - [address] [facility] mmHg [facility] pO2 Art 83 (L) 85 - 104 [facility] LABORATORY HCO3 Art 19.6 (L) 20.0 - [facility] 26.0 [facility] mmol/[facility] LABORATORY BE Art -6.8 (L) -3.0 - 3.[address] [facility] mmol/L [facility] Hgb Blood Gas 12.2 (L) 13.7 - [facility] 16.5 gm/dL [facility] O2HB Art 93.5 (L) 94.0 - [facility] 97.0 % [facility] COHB Art 0.4 % [facility] Comment: Nonsmokers: 0.5-1.5% COHB Smokers: Variable, but usually less than 10% Toxic: 20-30% COHB Lethal: Greater than 60% COHB METHB Art 0.8 <=1.5 % [facility] Na Whole [...] mmol/L [facility] Comment: Noted by electronic musical instrument repairer. FIO2 Art 40 % [facility] PF Ratio Art 208 [facility] Specimen Anatomical Collection Method Collection Time Receive d Time (Source) Location / / Volume Laterality Blood specimen 07/08/2017 4:04 AM 017 4:04 (specimen) EST AM EST Daphne Shahid MD CHEMISTRY ORDERABLES Performing Organization Address City/[facility]/ZIP Code Phon e Number [address] Scan, Peripheral Blood (07/08/2017 [...] Webber MD HEMATOLOGY ORDERABLES Performing Organization Address City/[facility]/ZIP Code Phon e Number [address] (ABNORMAL) Differential, Automated (07/08/2017 4:00 AM EST) Patholo gist Method Time Signature Neutrophils % 85.4 % [facility]ORY Neutr Abs (ANC) 16.07 (H) 1.70 - [facility] 6.10 [facility] x10(3)/[facility] L LABORATORY Lymphocytes % 3.5 % [facility]ORATORY Lymphocytes Abs 0.6 (L) 0.9 - 3.[address] [facility] x10(3)/[facility] LABORATORY Monocytes % 10.4 % [facility] LABORATORY Monocyte Abs 2.0 (H) 0.3 - 0.[address] [facility] x10(3)/[facility] LABORATORY Eosinophils % 0.0 % [facility] LABORATORY Eosinophils Abs 0.0 0.0 - 0.[address] [facility] x10(3)/[facility] LABORATORY Basophils % 0.1 % [facility] LABORATORY Basophils Abs 0.0 0.0 - 0.[address] [facility] x10(3)/[facility] LABORATORY Immature [...] City/State/ZIP Code Phon e Number [place] [id number]OS[address] LAB[address] Drive (ABNORMAL) Hemogram (07/08/2017 4:00 AM EST) Analysis Performed At Patho logist Time Signature WBC 18.8 (H) 4.0 - 9.[address] [facility] x10(3)/[facility] LABORATORY RBC 4.00 (L) 4.58 - [facility] 5.54 [facility] x10(6)/[facility] LABORATORY Hemoglobin 11.9 (L) 13.7 - [facility] 16.5 gm/dL [facility] Hematocrit 35.9 (L) 40.5 - [facility] 48.5 % [facility] MCV 89.8 82.9 - [facility] 93.1 fL [facility] MCH 29.8 27.5 - [place] [facility] 32.1 pg [facility] MCHC 33.1 32.0 - [facility] 35.7 gm/dL [facility] Platelets 232 145 - [address] [facility] x10(3)/[facility] LABORATORY RDWSD 47.6 (H) 36.0 - [facility] 45.0 [facility] LABORATORY RDWCV 14.5 (H) 11.4 - [facility] 13.8 % [facility] MPV 9.5 7.6 - 12.9 [facility] LABORATORY nRBC % Auto 0.0 % [facility] LABORATORY nRBC Abs Auto 0.000 0.000 - [facility] 0.000 [facility] x10(3)/[facility] LABORATORY Specimen Anatomical Collection Method Collection Time Receive d Time (Source) Location / / Volume Laterality Blood specimen 07/08/2017 4:00 AM 017 4:09 (specimen) EST AM EST Resulting Agency Comment Spec In Lab Yuan Webber MD HEMATOLOGY ORDERABLES Performing Organization Address City/[facility]/[place] [address] (ABNORMAL) Electrolytes panel (07/08/2017 4:00 AM EST) P athologist Signature Sodium 139 135 - [address] [facility] mmol/L [facility] Potassium 4.7 3.5 - 5.[address] [facility] mmol/[facility] LABORATORY Comment: result rechecked-[id number] Please note: ??Patients [...] Webber MD CHEMISTRY ORDERABLES Performing Organization Address City/[facility]/ZIP [facility] [place] [place] [address] (ABNORMAL) Cardiac Enzymes (LEB/CGP) (07/08/2017 4:00 AM EST) athologist Signature Troponin-T 1.88 (H) 0.00 - [facility] 0.00 ng/mL [facility] Comment: The 99th percentile for [...] additional sample may be indicated. Reference: Third [place] Definition of Myocardial Infarction. Journal of the [employer] 2012;60:1581-98 CK, Total 413 [...] Organization Address City/State/ZIP [place] [address] (ABNORMAL) Glucose, fasting (07/08/2017 4:00 AM EST) athologist Signature Glucose 287 (H) 65 - [address] [facility] Fasting mg/dL [facility] Comment: ?Fasting* Glucose Interpretive C [...] Webber MD CHEMISTRY ORDERABLES Performing Organization Address City/[facility] [place] [address] (ABNORMAL) Creatinine (07/08/2017 4:00 AM EST) Analysis Performed At [facility] Time Signature Creatinine 1.55 (H) 0.80 - [facility] 1.50 mg/dL [facility] Estimated GFR 44 (L) >=60 [facility] Comment: The reported eGFR should be multiplied b y 1.2 for patients. The MDRD is not an appropriate measure o f renal function for patients with body mass extremes or in patients with acute kidney failure. http://[employer]CustEx/DHnkdep http://[employer]ust[employer]/DHMCnkf Specimen Anatomical Collection Method Collection Time Receive d Time (Source) Location / / Volume Laterality Blood specimen 07/08/2017 4:00 AM 017 4:09 (specimen) EST AM EST Resulting Agency Comment Spec In Lab Yuan Webber MD CHEMISTRY ORDERABLES Performing Organization Address City/[facility]/ZIP [place] [address] BUN (07/08/2017 4:00 AM EST) athologist Signature BUN 16 10 - 20 [facility] mg/dL [facility] Specimen Anatomical Collection Method Collection Time Receive d Time (Source) Location / / Volume Laterality Blood specimen 07/08/2017 4:00 AM 017 4:09 (specimen) EST AM EST Resulting Agency Comment Spec In Lab Yuan Webber MD CHEMISTRY ORDERABLES Performing Organization Address City/State/[place] [address] (ABNORMAL) POCT Glucose (07/08/2017 3:00 AM EST) athologist Signature POC Glucose 273 (H) 65 - 199 [facility] mg/dL [facility] Comment: Supplemental ranges: <140 mg/dL before meals <180 mg/dL all other times of the day Specimen Anatomical Collection Method Collection Time Receive d Time (Source) Location / / Volume Laterality Blood specimen 07/08/2017 3:00 AM 017 3:00 (specimen) EST AM EST Daphne Shahid MD POINT OF CARE TEST ORDERABLE S Performing Organization Address City/[facility]/[place] [address] (ABNORMAL) POCT Glucose (07/08/2017 1:57 AM EST) athologist Signature POC Glucose 288 (H) 65 - 199 [facility] mg/dL [facility] Comment: Supplemental ranges: <140 mg/dL before meals <180 mg/dL all other times of the day Specimen Anatomical Collection Method Collection Time Receive d Time (Source) Location / / Volume Laterality Blood specimen 07/08/2017 1:57 AM 017 1:57 (specimen) EST AM EST Daphne Shahid MD POINT OF CARE TEST ORDERABLE S Performing Organization Address City/State/[place] [address] (ABNORMAL) POCT Glucose (07/08/2017 1:01 AM EST) athologist Signature POC Glucose 315 (H) 65 - [address] [facility] mg/dL [facility] Comment: Supplemental ranges: <140 mg/dL before meals <180 mg/dL all other times of the day Specimen Anatomical Collection Method Collection Time Receive d Time (Source) Location / / Volume Laterality Blood specimen 07/08/2017 1:01 AM 017 1:01 (specimen) EST AM EST Daphne Shahid MD POINT OF CARE TEST ORDERABLE S Performing Organization Address City/State/ZIP [place] [address] (ABNORMAL) BLOOD GAS 2 ARTERIAL (07/08/2017 12:09 AM EST) athologist Signature pH Art 7.26 7.35 - [facility] (Critical) 7.45 [facility] Comment: Noted by electronic musical [...] [facility] COHB Art 0.2 % [facility] Comment: Nonsmokers: 0.5-1.5% COHB Smokers: Variable, but usually less than 10% Toxic: 20-30% COHB Lethal: Greater than 60% COHB METHB Art 0.6 <=1.5 % [facility] Na Whole Blood 141 135 [...] mmol/L [facility] Comment: Noted by electronic musical instrument repairer. FIO2 Art 40 % [facility] PF Ratio Art 240 [facility] Specimen Anatomical Collection Method Collection Time Receive d Time (Source) Location / / Volume Laterality Blood specimen Arterial Draw / 07/08/2017 12:09 2016 5:31 (specimen) Unknown AM EST AM EST Resulting Agency Comment Spec In Lab Samy Maldonado MD CHEMISTRY ORDERABLES Performing Organization Address City/State/[place] [address] (ABNORMAL) POCT Glucose (07/07/2017 10:56 PM EST) P athologist Signature POC Glucose 292 (H) 65 - [address] [facility] mg/dL [facility] Comment: Supplemental ranges: <140 mg/dL before meals <180 mg/dL all other times of the day Specimen Anatomical Collection Method Collection Time Receive d Time (Source) Location / / Volume Laterality Blood specimen 07/07/2017 10:56 7 (specimen) PM EST 10:56 PM EST Daphne Shahid MD POINT OF CARE TEST ORDERABLE S Performing Organization Address City/[facility]/[place] [address] (ABNORMAL) BLOOD GAS 2 ARTERIAL (07/07/2017 10:04 PM EST) P athologist Signature pH Art 7.22 7.35 - [facility] (Critical) 7.45 [facility] Comment: Noted by electronic musical [...] [facility] COHB Art 0.7 % [facility] Comment: Nonsmokers: 0.5-1.5% COHB Smokers: Variable, but usually less than 10% Toxic: 20-30% COHB Lethal: Greater than 60% COHB METHB Art 0.7 <=1.5 % [facility] Na Whole Blood 140 135 [...] mmol/L [facility] Comment: Noted by electronic musical instrument repairer. FIO2 Art 40 % [facility] PF Ratio Art 235 [facility] Specimen Anatomical Collection Method Collection Time Receive d Time (Source) Location / / Volume Laterality Blood specimen 07/07/2017 10:04 7 (specimen) PM EST 10:04 PM EST Daphne Shahid MD CHEMISTRY ORDERABLES Performing Organization Address City/[facility]/[place] [address] (ABNORMAL) Hemoglobin (07/07/2017 10:00 PM EST) athologist Signature Hemoglobin 12.8 (L) 13.7 - [facility] 16.5 gm/dL [facility] Specimen Anatomical Collection Method Collection Time Receive d Time (Source) Location / / Volume Laterality Blood specimen 07/07/2017 10:00 7 (specimen) PM EST 10:13 PM EST Resulting Agency Comment Spec In Lab Yuan Webber MD HEMATOLOGY ORDERABLES Performing Organization Address City/[facility] [place] [address] (ABNORMAL) Potassium (07/07/2017 10:00 PM EST) athologist Signature Potassium 3.4 (L) 3.5 - 5.[address] [facility] mmol/L [facility] Comment: Please note: ??Patients with [...] Webber MD CHEMISTRY ORDERABLES Performing Organization Address City/[facility]/ZIP [facility] [place] [address] (ABNORMAL) POCT Glucose (07/07/2017 8:49 PM EST) athologist Signature POC Glucose 241 (H) 65 - 199 [facility] Comment: Supplemental ranges: <140 mg/dL before meals <180 mg/dL all other times of the day Specimen Anatomical Collection Method Collection Time Receive d Time (Source) Location / / Volume Laterality Blood specimen 07/07/2017 8:49 PM 017 8:49 (specimen) EST PM EST Daphne Shahid MD POINT OF CARE TEST ORDERABLE S Performing Organization Address City/[facility]/[place] [address] Prepare Albumin 5% in [...] [facility] BLOOD BANK ORDERABLES Performing Organization Address [facility] [place] [address] EKG 12 Lead (07/07/2017 7:17 PM EST) Component Value Ref Range Test Analysis Performed Pathologis t Method Time At Signature Ventricular rate 75 BPM MUSE SYSTEM Atrial Rate 75 BPM MUSE SYSTEM P-R Interval 168 ms MUSE SYSTEM QRS Duration 104 ms MUSE SYSTEM Q-T Interval 462 ms MUSE SYSTEM QTC Calculated 515 ms MUSE SYSTEM (Bezet) Calculated P [place] 52 degrees MUSE SYSTEM Calculated R [place] -40 degrees MUSE SYSTEM Calculated T [place] 39 degrees MUSE SYSTEM INTERPRETATION Normal sinus [...] Webber MD ECG ORDERABLES Performing Organization Address City/[facility]/ZIP Code Phon e Number MUSE SYSTEM [...] Art 7.21 7.35 - [facility] (Critical) [address] [place] [address] LABORATORY Comment: Noted by electronic musical instrument [...] [facility] COHB Art 0.5 % [facility] Comment: Nonsmokers: 0.5-1.5% COHB Smokers: Variable, but usually less than 10% Toxic: 20-30% COHB Lethal: Greater than 60% COHB METHB Art 0.7 <=1.5 % [facility] Na Whole Blood 140 135 - 145 mmol/L [facility] K Whole Blood 3.0 (Critical) 3.5 - 5.0 mmol/L [facility] Comment: Noted by electronic musical [...] mmol/L [facility] Comment: Noted by electronic musical instrument repairer. FIO2 Art 100 % [facility] PF Ratio Art 238 [facility] Specimen Anatomical Collection Method Collection Time Receive d Time (Source) Location / / Volume Laterality Blood specimen 07/07/2017 6:57 PM 017 6:57 (specimen) EST PM EST Daphne Shahid MD CHEMISTRY ORDERABLES Performing Organization Address City/State/ZIP [place] [address] (ABNORMAL) BLOOD GAS 2 ARTERIAL (07/07/2017 5:31 PM EST) athologist Signature pH Art 7.29 7.35 - [facility] (Critical) 7.45 [facility] Comment: Noted by electronic musical [...] [facility] COHB Art 0.3 % [facility] Comment: Nonsmokers: 0.5-1.5% COHB Smokers: Variable, but usually less than 10% Toxic: 20-30% COHB Lethal: Greater than 60% COHB METHB Art 0.3 <=1.5 % [facility] Na Whole Blood 132 (L) [...] Shahid MD CHEMISTRY ORDERABLES Performing Organization Address City/[facility] Phon e Number [address] Fibrinogen (07/07/2017 5:30 PM EST) athologist Signature Fibrinogen 224 180 - [address] [facility] mg/dL [facility] Comment: Called by: [facility], Read back by: Monica Campos on/OR16, [...] Perez MD HEMATOLOGY ORDERABLES Performing Organization Address City/[facility] Phon e Number [address] APTT (07/07/2017 5:30 PM [...] Perez MD HEMATOLOGY ORDERABLES Performing Organization Address City/[facility]/[place] [address] (ABNORMAL) Prothrombin Time (07/07/2017 [...] Perez MD HEMATOLOGY ORDERABLES Performing Organization Address City/[facility]/[place] [address] (ABNORMAL) Hemogram (07/07/2017 5:30 PM EST) P athologist Signature WBC 19.6 (H) 4.0 - 9.[address] [facility] x10(3)/[facility] LABORATORY RBC 3.08 (L) 4.58 - [facility] 5.54 [facility] x10(6)/[facility] LABORATORY Hemoglobin 9.2 (L) 13.7 - [facility] 16.5 gm/dL [facility] Hematocrit 28.0 (L) 40.5 - [facility] 48.5 % [facility] Comment: This result has been called to MONICA WEINSTEIN LUISA by DONALD GROSSMAN on 07 07 2017 at 1759, and has been read back. MCV 90.9 82.9 - 93.1 fL [facility] MCH 29.9 27.5 - 32.1 pg [facility] MCHC 32.9 32.0 - 35.7 gm/dL [facility] Platelets 155 145 - 357 x10(3)/[facility] LABORATORY RDWSD 46.5 (H) 36.0 - 45.0 fL [facility] RDWCV 14.1 (H) 11.4 - 13.8 % [facility] MPV 9.5 7.6 - 12.9 fL [facility] nRBC % Auto 0.0 % [facility] nRBC Abs Auto 0.000 0.000 - 0.000 x10(3)/[facility] LABORATORY Specimen Anatomical Collection Method Collection Time Receive d Time (Source) Location / / Volume Laterality Blood specimen 07/07/2017 5:30 PM 017 5:34 (specimen) EST PM EST Resulting Agency Comment Spec In Lab Yifan Perez MD HEMATOLOGY ORDERABLES Performing Organization Address City/[facility]/ZIP [facility] Phon e Number [address] Prepare Platelets, Apheresis (07/07/2017 5:00 PM EST) P athologist Signature Dispensed? Yes [facility] Specimen Anatomical Collection Method Collection Time Receive d Time (Source) Location / / Volume Laterality Blood specimen 07/07/2017 5:00 PM 017 4:58 (specimen) EST PM EST Daphne Shahid MD BLOOD BANK ORDERABLES Performing Organization Address City/[facility]/ZIP [facility] Phon e Number [address] Platelet count (07/07/2017 4:55 PM EST) P athologist Signature Platelets 177 145 - [address] [facility] x10(3)/[facility] LABORATORY Plat Immature 1.5 0.0 - 7.4 [facility] Comment: Limitation of the Immature Platelet Frac tion (IPF)-May be less reliable when the platelet count is less than 61w856/u L due to statistical imprecision. The IPF [...] in a decreased state of production. References: [employer] The Clinical Value of the Immature Platelet Fraction (IPF) in Cell Recovery Document Number 10-1143 12/2010 [employer] The Role of the Imm ature [...] Organization Address City/State/[place] [address] (ABNORMAL) Hemoglobin and Hematocrit, blood (07/07/2017 4:55 PM EST) athologist Signature Hemoglobin 9.1 (L) 13.7 - 16.[address] [facility] gm/dL [facility] Comment: This result has been [...] Organization Address City/State/ZIP [place] [address] (ABNORMAL) BLOOD GAS 2 ARTERIAL (07/07/2017 4:38 PM EST) Analysis Performed At Patho logist Time Signature pH Art 7.37 7.35 - [facility] 7.45 [facility] pCO2 Art 44 35 - [address] [facility] mmHg [facility] pO2 Art 322 (H) 85 - 104 [facility]ORATORY HCO3 Art 24.9 20.0 - [facility] 26.0 [facility] mmol/L [facility] BE Art -0.4 -3.0 - 3.[address] [facility] mmol/L [facility] Hgb Blood Gas 10.1 (L) 13.7 - [facility] 16.5 gm/dL [facility] O2HB Art 98.7 (H) 94.0 - [facility] 97.0 % [facility] COHB Art 0.1 % [facility] Comment: Nonsmokers: 0.5-1.5% COHB Smokers: Variable, but usually less than 10% Toxic: 20-30% COHB Lethal: Greater than 60% COHB METHB Art 0.3 <=1.5 % [facility] Na Whole Blood 130 (L) [...] [facility] Comment: Noted by electronic musical [...] Organization Address City/State/ZIP [place] [address] (ABNORMAL) BLOOD GAS 2 VENOUS (07/07/2017 4:06 PM EST) Analysis Performed At Patho logist Time Signature pH Cody 7.31 (L) 7.32 - [facility] 7.42 [facility] pCO2 Cody 47 41 - 51 [facility]ORY pO2 Cody 53 (H) 25 - 40 [facility]ORY HCO3 Cody 22.7 mmol/L [facility] BE Cody -3.7 mmol/L [facility] Hgb Blood Gas 10.2 (L) 13.7 - [facility] 16.5 gm/dL [facility] O2HB Cody 81.0 % [facility] COHB Cody 1.0 % [facility] Comment: Nonsmokers: 0.5-1.5% COHB Smokers: Variable, but usually less than 10% Toxic: 20-30% COHB Lethal: Greater than 60% COHB METHB Cody 0.3 <=1.5 % [facility] Na Whole Blood 132 (L) [...] [facility] Comment: Noted by electronic musical [...] mmol/L [facility] BGas Source Venous [facility] Specimen Anatomical Collection Method Collection Time Receive d Time (Source) Location / / Volume Laterality Blood specimen 07/07/2017 4:06 PM 017 4:06 (specimen) EST PM EST Daphne Shahid MD CHEMISTRY ORDERABLES Performing Organization Address City/State/ZIP [place] [address] (ABNORMAL) BLOOD GAS 2 ARTERIAL (07/07/2017 4:05 PM EST) Analysis Performed At Patho logist Time Signature pH Art 7.36 7.35 - [facility] 7.45 [facility] pCO2 Art 40 35 - 45 [facility]ORY pO2 Art 282 (H) 85 - 104 [facility]ORY HCO3 Art 22.1 20.0 - [facility] 26.0 [facility] mmol/L [facility] BE Art -3.4 (L) -3.0 - 3.[address] [facility] mmol/L [facility] Hgb Blood Gas 10.2 (L) 13.7 - [facility] 16.5 gm/dL [facility] O2HB Art 98.4 (H) 94.0 - [facility] 97.0 % [facility] COHB Art 0.3 % [facility] Comment: Nonsmokers: 0.5-1.5% COHB Smokers: Variable, but usually less than 10% Toxic: 20-30% COHB Lethal: Greater than 60% COHB METHB Art 0.3 <=1.5 % [facility] Na Whole Blood 131 (L) [...] [facility] Comment: Noted by electronic musical [...] Organization Address City/State/Z[place] [address] (ABNORMAL) BLOOD GAS 2 ARTERIAL (07/07/2017 2:29 PM EST) Analysis Performed At Patho logist Time Signature pH Art 7.43 7.35 - [facility] 7.45 [facility] pCO2 Art 36 35 - [address] [facility] mmHg [facility] pO2 Art 221 (H) 85 - 104 [facility]ORATORY HCO3 Art 23.2 20.0 - [facility] 26.0 [facility] mmol/L [facility] BE Art -1.2 -3.0 - 3.[address] [facility] mmol/L [facility] Hgb Blood Gas 13.9 13.7 - [facility] 16.5 gm/dL [facility] O2HB Art 97.8 (H) 94.0 - [facility] 97.0 % [facility] COHB Art 1.1 % [facility] Comment: Nonsmokers: 0.5-1.5% COHB Smokers: Variable, but usually less than 10% Toxic: 20-30% COHB Lethal: Greater than 60% COHB METHB Art 0.3 <=1.5 % [facility] Na Whole Blood 139 135 [...] Shahid MD CHEMISTRY ORDERABLES Performing Organization Address City/[facility] [place] [address] Prepare Coag Factors (Non-Hemophilia) (07/07/2017 1:25 PM EST) P athologist Signature Dispensed? Yes [facility] Specimen Anatomical Collection Method Collection Time Receive d Time (Source) Location / / Volume Laterality Blood specimen 07/07/2017 1:25 PM 017 1:21 (specimen) EST PM EST Daphne Shahid MD BLOOD BANK ORDERABLES Performing Organization Address City/[facility] [place] [address] Prepare RBC (07/07/2017 1:10 PM EST) P athologist Signature Dispensed? Yes [facility] Specimen Anatomical Collection Method Collection Time Receive d Time (Source) Location / / Volume Laterality Blood specimen 07/07/2017 1:10 PM 017 1:05 (specimen) EST PM EST Daphne Shahid MD BLOOD BANK ORDERABLES Performing Organization Address City/[facility]/ZIP Code Phon e Number [address] POCT Glucose (07/07/2017 11:56 AM EST) P athologist Signature POC Glucose 188 65 - 199 [facility] mg/dL [facility] Comment: Supplemental ranges: <140 mg/dL before meals <180 mg/dL all other times of the day Specimen Anatomical Collection Method Collection Time Receive d Time (Source) Location / / Volume Laterality Blood specimen 07/07/2017 11:56 7 (specimen) AM EST 11:56 AM EST Daphne Shahid MD POINT OF CARE TEST ORDERABLE S Performing Organization Address City/[facility]/ZIP Code Phon e Number [address] POCT Glucose (07/07/2017 11:05 AM EST) athologist Signature POC Glucose 168 65 - 199 [facility] mg/dL [facility] Comment: Supplemental ranges: <140 mg/dL before meals <180 mg/dL all other times of the day Specimen Anatomical Collection Method Collection Time Receive d Time (Source) Location / / Volume Laterality Blood specimen 07/07/2017 11:05 7 (specimen) AM EST 11:05 AM EST Daphne Shahid MD POINT OF CARE TEST ORDERABLE S Performing Organization Address City/State/[place] [address] POCT Glucose (07/07/2017 10:02 AM EST) P athologist Signature POC Glucose 191 65 - 199 [facility] mg/dL [facility] Comment: Supplemental ranges: <140 mg/dL before meals <180 mg/dL all other times of the day Specimen Anatomical Collection Method Collection Time Receive d Time (Source) Location / / Volume Laterality Blood specimen 07/07/2017 10:02 7 (specimen) AM EST 10:02 AM EST Daphne Shahid MD POINT OF CARE TEST ORDERABLE S Performing Organization Address City/[facility]/ZIP Code Phon e Number [address] POCT Glucose (07/07/2017 7:53 AM EST) P athologist Signature POC Glucose 178 65 - 199 [facility] mg/dL [facility] Comment: Supplemental ranges: <140 mg/dL before meals <180 mg/dL all other times of the day Specimen Anatomical Collection Method Collection Time Receive d Time (Source) Location / / Volume Laterality Blood specimen 07/07/2017 7:53 AM 017 7:53 (specimen) EST AM EST Daphne Shahid MD POINT OF CARE TEST ORDERABLE S Performing Organization Address City/[facility]/ZIP Code Phon e Number [address] POCT Glucose (07/07/2017 7:03 AM EST) athologist Signature POC Glucose 188 65 - 199 [facility] mg/dL [facility] Comment: Supplemental ranges: <140 mg/dL before meals <180 mg/dL all other times of the day Specimen Anatomical Collection Method Collection Time Receive d Time (Source) Location / / Volume Laterality Blood specimen 07/07/2017 7:03 AM 017 7:03 (specimen) EST AM EST Daphne Shahid MD POINT OF CARE TEST ORDERABLE S Performing Organization Address City/[facility]/[place] [address] (ABNORMAL) POCT Glucose (07/07/2017 6:17 AM EST) P athologist Signature POC Glucose 207 (H) 65 - 199 [facility] mg/dL [facility] Comment: Supplemental [...] Address City/State/ZIP Code Phon e Number [address] Differential, Automated (07/07/2017 5:15 AM EST) P athologist Signature Neutrophils % 69.7 % [facility] Neutr Abs (ANC) 5.32 1.70 - [facility] 6.10 [facility] x10(3)/[facility] LABORATORY Lymphocytes % 16.3 % [facility] Lymphocytes Abs 1.2 0.9 - 3.[address] [facility] x10(3)/[facility] LABORATORY Monocytes % 10.5 % [facility] Monocyte Abs 0.8 0.3 - 0.[address] [facility] x10(3)/[facility] LABORATORY Eosinophils % 2.5 % [facility] Eosinophils Abs 0.2 0.0 - 0.[address] [facility] x10(3)/[facility] LABORATORY Basophils % 0.7 % [facility] Basophils Abs 0.0 0.0 - 0.[address] [facility] x10(3)/[facility] LABORATORY Immature Gran % 0.30 % [...] Abs 0.02 0.00 - 0.04 x10(3)/[facility] LABORATORY Specimen Anatomical Collection Method Collection Time Receive d Time (Source) Location / / Volume Laterality Blood specimen 07/07/2017 5:15 AM 017 5:34 (specimen) EST AM EST Resulting Agency Comment Spec In Lab Daphne Shahid MD HEMATOLOGY ORDERABLES Performing Organization Address City/State/ZIP Code Phon e Number [address] (ABNORMAL) Hemogram (07/07/2017 5:15 AM EST) Analysis Performed At Patho logist Time Signature WBC 7.6 4.0 - 9.[address] [facility] x10(3)/[facility] LABORATORY RBC 4.82 4.58 - [facility] 5.54 [facility] x10(6)/[facility] LABORATORY Hemoglobin 14.4 13.7 - [facility] gm/dL [facility] Hematocrit 42.1 40.5 - [facility] 48.5 % [facility] MCV 87.3 82.9 - [facility] 93.1 [facility] LABORATORY MCH 29.9 27.5 - [facility] 32.1 pg [facility] MCHC 34.2 32.0 - [facility] gm/dL [facility] Platelets 188 145 - [address] [facility] x10(3)/[facility] LABORATORY RDWSD 45.1 (H) 36.0 - [facility] 45[facility]0 [facility] LABORATORY RDWCV 14.3 (H) 11.4 - [facility] 13.8 % [facility] MPV 9.4 7.6 - 12.9 [facility] LABORATORY nRBC % Auto 0.0 % [facility] nRBC Abs Auto 0.000 0.000 - [facility] 0.000 [facility] x10(3)/[facility] LABORATORY Specimen Anatomical Collection Method Collection Time Receive d Time (Source) Location / / Volume Laterality Blood specimen 07/07/2017 5:15 AM 017 5:34 (specimen) EST AM EST Resulting Agency Comment Spec In Lab Daphne Shahid MD HEMATOLOGY ORDERABLES Performing Organization Address City/State/ZIP [place] [address] (ABNORMAL) APTT (07/07/2017 5:15 [...] Shahid MD HEMATOLOGY ORDERABLES Performing Organization Address City/[facility]/ZIP Code Phon e Number [address] Magnesium (07/07/2017 5:15 AM EST) athologist Signature Magnesium 0.94 0.69 - 1.[address] [facility] mmol/L [facility] Specimen Anatomical Collection Method Collection Time Receive d Time (Source) Location / / Volume Laterality Blood specimen 07/07/2017 5:15 AM 017 5:34 (specimen) EST AM EST Resulting Agency Comment Spec In Lab Daphne Shahid MD CHEMISTRY ORDERABLES Performing Organization Address City/[facility]/[place] [address] (ABNORMAL) Basic Metabolic Panel (non-fasting) (07/07/2017 5:15 AM EST) athologist Signature Glucose Lvl 203 (H) 65 - [address] [facility] mg/dL [facility] Comment: Diabetes: >=200 mg/dL plus symp toms BUN 15 10 - 20 mg/dL [facility] Creatinine 1.09 0.80 - 1.50 mg/dL [facility] Sodium 142 135 - 145 mmol/L [facility] Potassium 4.4 3.5 - 5.0 mmol/L [facility] Estimated GFR >60 >=60 [facility] Comment: The reported eGFR should be multiplied b y 1.2 for patients. The MDRD is not an appropriate measure o f renal function for patients with body mass extremes or in patients with acute kidney failure. http://[employer]/DHnkdep http://[employer]/DHMCnkf Specimen Anatomical Collection Method Collection Time Receive d Time (Source) Location / / Volume Laterality Blood specimen 07/07/2017 5:15 AM 017 5:34 (specimen) EST AM EST Resulting Agency Comment Spec In Lab Daphne Shahid MD CHEMISTRY ORDERABLES Performing Organization Address City/State/ZIP [place] [address] (ABNORMAL) Cardiac Enzymes (LEB/CGP) (07/07/2017 5:15 AM EST) P athologist Signature Troponin-T 2.07 (H) 0.00 - [facility] 0.00 ng/mL [facility] Comment: The 99th percentile for [...] additional sample may be indicated. Reference: Third [place] Definition of Myocardial Infarction. Journal of the [employer] College [employer] Cardiology 2012;60:1581-98 CK, Total 88 0 - 200 unit/L [facility] Specimen Anatomical Collection Method Collection Time Receive d Time (Source) Location / / Volume Laterality Blood specimen 07/07/2017 5:15 AM 017 5:34 (specimen) EST AM EST Resulting Agency Comment Spec In Lab Daphne Shahid MD CHEMISTRY ORDERABLES Performing Organization Address City/[facility]/ZIP Code Phon e Number [address] POCT Glucose (07/07/2017 5:01 AM EST) athologist Signature POC Glucose 182 65 - 199 [facility] Comment: Supplemental ranges: <140 mg/dL before meals <180 mg/dL all other times of the day Specimen Anatomical Collection Method Collection Time Receive d Time (Source) Location / / Volume Laterality Blood specimen 07/07/2017 5:01 AM 017 5:01 (specimen) EST AM EST Daphne Shahid MD POINT OF CARE TEST ORDERABLE S Performing Organization Address City/[facility]/ZIP Code Phon e Number [address] POCT Glucose (07/07/2017 4:08 AM EST) athologist Signature POC Glucose 199 65 - 199 [facility]/dL [facility] Comment: Supplemental ranges: <140 mg/dL before meals <180 mg/dL all other times of the day Specimen Anatomical Collection Method Collection Time Receive d Time (Source) Location / / Volume Laterality Blood specimen 07/07/2017 4:08 AM 017 4:08 (specimen) EST AM EST Daphne Shahid MD POINT OF CARE TEST ORDERABLE S Performing Organization Address City/[facility]/[place] [address] POCT Glucose (07/07/2017 3:03 AM EST) athologist Signature POC Glucose 188 65 - 199 [facility] mg/dL [facility] Comment: Supplemental ranges: <140 mg/dL before meals <180 mg/dL all other times of the day Specimen Anatomical Collection Method Collection Time Receive d Time (Source) Location / / Volume Laterality Blood specimen 07/07/2017 3:03 AM 017 3:03 (specimen) EST AM EST Daphne Shahid MD POINT OF CARE TEST ORDERABLE S Performing Organization Address City/State/[place] [address] (ABNORMAL) POCT Glucose (07/07/2017 2:08 AM EST) athologist Signature POC Glucose 200 (H) 65 - 199 [facility] Comment: Supplemental ranges: <140 mg/dL before meals <180 mg/dL all other times of the day Specimen Anatomical Collection Method Collection Time Receive d Time (Source) Location / / Volume Laterality Blood specimen 07/07/2017 2:08 AM 017 2:08 (specimen) EST AM EST Daphne Shahid MD POINT OF CARE TEST ORDERABLE S Performing Organization Address City/State/[place] [address] (ABNORMAL) POCT Glucose (07/07/2017 1:31 AM EST) athologist Signature POC Glucose 209 (H) 65 - 199 [facility] mg/dL [facility] Comment: Supplemental ranges: <140 mg/dL before meals <180 mg/dL all other times of the day Specimen Anatomical Collection Method Collection Time Receive d Time (Source) Location / / Volume Laterality Blood specimen 07/07/2017 1:31 AM 017 1:31 (specimen) EST AM EST Daphne Shahid MD POINT OF CARE TEST ORDERABLE S Performing Organization Address City/State/[place] [address] XR Chest PA or [...] 161 65 - [address] [facility] mg/dL [facility] Comment: Supplemental ranges: <140 mg/dL before meals <180 mg/dL all other times of the day Specimen Anatomical Collection Method Collection Time Receive d Time (Source) Location / / Volume Laterality Blood specimen 07/07/2017 12:07 7 (specimen) AM EST 12:07 AM EST Daphne Shahid MD POINT OF CARE TEST ORDERABLE S Performing Organization Address City/State/Z[place] [address] (ABNORMAL) APTT (07/07/2017 12:00 [...] Shahid MD HEMATOLOGY ORDERABLES Performing Organization Address City/[facility]/ZIP Code Phon e Number [address] POCT Glucose (07/06/2017 9:55 PM EST) athologist Signature POC Glucose 109 65 - 199 [facility] mg[facility]dL [facility] Comment: Supplemental ranges: <140 mg/dL before meals <180 mg/dL all other times of the day Specimen Anatomical Collection Method Collection Time Receive d Time (Source) Location / / Volume Laterality Blood specimen 07/06/2017 9:55 PM 017 9:55 (specimen) EST PM EST Daphne Shahid MD POINT OF CARE TEST ORDERABLE S Performing Organization Address City/[facility]/ZIP Code Phon e Number [address] POCT Glucose (07/06/2017 9:04 PM EST) athologist Signature POC Glucose 120 65 - 199 [facility]/dL [facility] Comment: Supplemental [...] Address City/State/ZIP Code Phon e Number [address] POCT Glucose (07/06/2017 7:45 PM EST) athologist Signature POC Glucose 158 65 - 199 [place] mg/dL [facility] Comment: Supplemental ranges: <140 mg/dL before meals <180 mg/dL all other times of the day Specimen Anatomical Collection Method Collection Time Receive d Time (Source) Location / / Volume Laterality Blood specimen 07/06/2017 7:45 PM 017 7:45 (specimen) EST PM EST Daphne Shahid MD POINT OF CARE TEST ORDERABLE S Performing Organization Address City/[facility]/ZIP Code Phon e Number [address] Potassium (07/06/2017 7:40 PM EST) athologist [facility] Potassium 3.9 3.5 - 5.[address] [facility] mmol/L [facility] Comment: Please note: ??Patients with [...] Shahid MD CHEMISTRY ORDERABLES Performing Organization Address City/[facility]/[place] [address] (ABNORMAL) Cardiac Enzymes (LEB/CGP) (07/06/2017 7:40 PM EST) athologist Signature Troponin-T 2.27 (H) 0.00 - [place] 0.00 ng/mL [facility] Comment: The 99th percentile for [...] additional sample may be indicated. Reference: Third [place] Definition of Myocardial Infarction. Journal of the [employer] College of Cardiology 2012;60:1581-98 CK, Total 93 0 - 200 unit/L [facility] Specimen Anatomical Collection Method Collection Time Receive d Time (Source) Location / / Volume Laterality Blood specimen 07/06/2017 7:40 PM 017 7:52 (specimen) EST PM EST Resulting Agency Comment Spec In Lab Daphne Shahid MD CHEMISTRY ORDERABLES Performing Organization Address City/State/[place] [address] (ABNORMAL) POCT Glucose (07/06/2017 7:13 PM EST) P athologist Signature POC Glucose 200 (H) 65 - [address] [facility] mg/dL [facility] Comment: Supplemental ranges: <140 mg/dL before meals <180 mg/dL all other times of the day Specimen Anatomical Collection Method Collection Time Receive d Time (Source) Location / / Volume Laterality Blood specimen 07/06/2017 7:13 PM 017 7:13 (specimen) EST PM EST Daphne Shahid MD POINT OF CARE TEST ORDERABLE S Performing Organization Address City/State/[place] [address] (ABNORMAL) APTT (07/06/2017 6:15 [...] Address City/State/ZIP Code Phon e Number [address] (ABNORMAL) POCT Glucose (07/06/2017 6:03 PM EST) athologist Signature POC Glucose 236 (H) 65 - 199 [facility] Comment: Supplemental ranges: <140 mg/dL before meals <180 mg/dL all other times of the day Specimen Anatomical Collection Method Collection Time Receive d Time (Source) Location / / Volume Laterality Blood specimen 07/06/2017 6:03 PM 017 6:03 (specimen) EST PM EST Daphne Shahid MD POINT OF CARE TEST ORDERABLE S Performing Organization Address City/[facility]/[place] [address] (ABNORMAL) POCT Glucose (07/06/2017 5:01 PM EST) athologist Signature POC Glucose 235 (H) 65 - 199 [facility]/dL [facility] Comment: Supplemental [...] Address City/State/ZIP Code [place] [address] (ABNORMAL) POCT Glucose (07/06/2017 4:06 PM EST) athologist Signature POC Glucose 202 (H) 65 - 199 [facility] mg/dL [facility] Comment: Supplemental [...] Address City/State/ZIP Code Phon e Number [address] POCT Glucose (07/06/2017 2:59 PM EST) athologist Signature POC Glucose 178 65 - 199 [facility] Comment: Supplemental ranges: <140 mg/dL before meals <180 mg/dL all other times of the day Specimen Anatomical Collection Method Collection Time Receive d Time (Source) Location / / Volume Laterality Blood specimen 07/06/2017 2:59 PM 017 2:59 (specimen) EST PM EST Daphne Shahid MD POINT OF CARE TEST ORDERABLE S Performing Organization Address City/State/[place] [address] (ABNORMAL) Cardiac Enzymes (LEB/CGP) (07/06/2017 2:10 PM EST) athologist Signature Troponin-T 2.34 (H) 0.00 - [place] 0.00 ng/mL [facility] Comment: The 99th percentile for [...] additional sample may be indicated. Reference: Third [place] Definition of Myocardial Infarction. Journal of the [employer] College of Cardiology 2012;60:1581-98 CK, Total 101 0 - 200 unit/L [facility] Specimen Anatomical Collection Method Collection Time Receive d Time (Source) Location / / Volume Laterality Blood specimen 07/06/2017 2:10 PM 017 2:26 (specimen) EST PM EST Resulting Agency Comment Spec In Lab Daphne Shahid MD CHEMISTRY ORDERABLES Performing Organization Address City/[facility]/ZIP Code Phon e Number [address] POCT Glucose (07/06/2017 2:08 PM EST) athologist Signature POC Glucose 192 65 - 199 [facility] Comment: Supplemental ranges: <140 mg/dL before meals <180 mg/dL all other times of the day Specimen Anatomical Collection Method Collection Time Receive d Time (Source) Location / / Volume Laterality Blood specimen 07/06/2017 2:08 PM 017 2:08 (specimen) EST PM EST Daphne Shahid MD POINT OF CARE TEST ORDERABLE S Performing Organization Address City/[facility]/ZIP [facility] Phon e Number [address] POCT Glucose (07/06/2017 1:04 PM EST) athologist Signature POC Glucose 162 65 - 199 [facility] Comment: Supplemental ranges: <140 mg/dL before meals <180 mg/dL all other times of the day Specimen Anatomical Collection Method Collection Time Receive d Time (Source) Location / / Volume Laterality Blood specimen 07/06/2017 1:04 PM 017 1:04 (specimen) EST PM EST Daphne Shahid MD POINT OF CARE TEST ORDERABLE S Performing Organization Address City/State/[place] [address] POCT Glucose (07/06/2017 12:05 PM EST) P athologist Signature POC Glucose 196 65 - [address] [facility] mg/dL [facility] Comment: Supplemental ranges: <140 mg/dL before meals <180 mg/dL all other times of the day Specimen Anatomical Collection Method Collection Time Receive d Time (Source) Location / / Volume Laterality Blood specimen 07/06/2017 12:05 7 (specimen) PM EST 12:05 PM EST Daphne Shahid MD POINT OF CARE TEST ORDERABLE S Performing Organization Address City/[facility]/[place] [address] EKG 12 Lead (07/06/2017 12:00 PM EST) Component Value Ref Range Test Analysis Performed Pathologis t Method Time At Signature Ventricular rate 91 BPM MUSE SYSTEM Atrial Rate 91 BPM MUSE SYSTEM P-R Interval 140 ms MUSE SYSTEM QRS Duration 94 ms MUSE SYSTEM Q-T Interval 394 ms MUSE SYSTEM QTC Calculated 484 ms MUSE SYSTEM (Bezet) Calculated P [place] 36 degrees MUSE SYSTEM Calculated R [place] -19 degrees MUSE SYSTEM Calculated T [place] 104 degrees MUSE SYSTEM INTERPRETATION Normal sinus rhythm MUSE SYSTEM 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) ST & T wave abnormality, consider lateral ischemia Abnormal ECG When compared with ECG of 05-JUL-2017 20:39, No significant change was found Confirmed by MD Luci, Taurus Braun ([id number]) on 07/06/2017 5:07:33 PM Specimen Anatomical Collection Method Collection Time Receive d Time (Source) Location / / Volume Laterality 07/06/2017 12:00 07/06/2017 5:07 PM EST PM EST Daphne Shahid MD ECG ORDERABLES Performing Organization Address City/State/ZIP Code Phon e Number MUSE SYSTEM ABORH Recheck Status (07/06/2017 12:00 PM EST) [facility] Method Time Signature ABORH Type Completed [facility] LABORATORY Specimen Anatomical Collection Method Collection Time Receive d Time (Source) Location / / Volume Laterality Blood specimen 07/06/2017 12:00 7 (specimen) PM EST 12:24 PM EST Resulting Agency Comment Spec In Lab Daphne Shahid MD BLOOD BANK ORDERABLES Performing Organization Address City/State/[place] [address] Antibody screen (07/06/2017 12:00 PM EST) [facility] Method Time Signature Ab Screen Negative [facility] LABORATORY Expires at 07/09/[address] [facility] [id number] on: [facility] Specimen Anatomical Collection Method Collection Time Receive d Time (Source) Location / / Volume Laterality Blood specimen 07/06/2017 12:00 7 (specimen) PM EST 12:24 PM EST Resulting Agency Comment Spec In Lab Daphne Shahid MD BLOOD BANK ORDERABLES Performing Organization Address City/State/[place] [address] ABO/Rh Typing (07/06/2017 12:00 PM EST) P athologist Signature ABORh Type O Pos [facility] Specimen Anatomical Collection Method Collection Time Receive d Time (Source) Location / / Volume Laterality Blood specimen 07/06/2017 12:00 7 (specimen) PM EST 12:24 PM EST Resulting Agency Comment Spec In Lab Dahpne Shahid MD BLOOD BANK ORDERABLES Performing Organization Address City/State/[place] [address] Prothrombin Time (07/06/2017 11:24 [...] Shahid MD HEMATOLOGY ORDERABLES Performing Organization Address City/[facility]/ZIP Code Phon e Number [address] (ABNORMAL) APTT (07/06/2017 11:24 [...] Shahid MD HEMATOLOGY ORDERABLES Performing Organization Address City/[facility]/[place] [address] POCT Glucose (07/06/2017 11:02 AM EST) P athologist Signature POC Glucose 187 65 - [address] [facility] mg/dL [facility] Comment: Supplemental ranges: <140 mg/dL before meals <180 mg/dL all other times of the day Specimen Anatomical Collection Method Collection Time Receive d Time (Source) Location / / Volume Laterality Blood specimen 07/06/2017 11:02 7 (specimen) AM EST 11:02 AM EST Daphne Shahid MD POINT OF CARE TEST ORDERABLE S Performing Organization Address City/State/ZIP Code Phon e Number [address] POCT Glucose (07/06/2017 10:18 AM EST) athologist Signature POC Glucose 193 65 - 199 [place] [facility] mg/dL [facility] Comment: Supplemental ranges: <140 mg/dL before meals <180 mg/dL all other times of the day Specimen Anatomical Collection Method Collection Time Receive d Time (Source) Location / / Volume Laterality Blood specimen 07/06/2017 10:18 7 (specimen) AM EST 10:18 AM EST Daphne Shahid MD POINT OF CARE TEST ORDERABLE S Performing Organization Address City/[facility]/ZIP Code Phon e Number [address] POCT Glucose (07/06/2017 9:25 AM EST) athologist Signature POC Glucose 182 65 - 199 [facility]dL [facility] Comment: Supplemental ranges: <140 mg/dL before meals <180 mg/dL all other times of the day Specimen Anatomical Collection Method Collection Time Receive d Time (Source) Location / / Volume Laterality Blood specimen 07/06/2017 9:25 AM 017 9:25 (specimen) EST AM EST Daphne Shahid MD POINT OF CARE TEST ORDERABLE S Performing Organization Address City/[facility]/[place] [address] (ABNORMAL) Cardiac Enzymes (LEB/CGP) (07/06/2017 8:10 AM EST) athologist Signature Troponin-T 2.26 (H) 0.00 - [place] 0.[facility] ng/mL [facility] Comment: The 99th percentile for [...] additional sample may be indicated. Reference: Third [place] Definition of Myocardial Infarction. Journal of the [employer] College of Cardiology 2012;60:1581-98 CK, Total 124 0 - 200 unit/L [facility] Specimen Anatomical Collection Method Collection Time Receive d Time (Source) Location / / Volume Laterality Blood specimen 07/06/2017 8:10 AM 017 8:23 (specimen) EST AM EST Resulting Agency Comment Spec In Lab Daphne Shahid MD CHEMISTRY ORDERABLES Performing Organization Address City/State/ZIP Code Phon e Number [address] Magnesium (07/06/2017 8:10 AM EST) P athologist Signature Magnesium 0.84 0.69 - 1.07 [facility] mmol/L [facility] Specimen Anatomical Collection Method Collection Time Receive d Time (Source) Location / / Volume Laterality Blood specimen 07/06/2017 8:10 AM 017 8:21 (specimen) EST AM EST Resulting Agency Comment Spec In Lab Daphne Shahid MD CHEMISTRY ORDERABLES Performing Organization Address City/[facility]/ZIP Code Phon e Number [address] (ABNORMAL) Basic Metabolic Panel (non-fasting) (07/06/2017 8:10 AM EST) P athologist Signature Glucose Lvl 199 65 - 199 [facility] Comment: Diabetes: >=200 mg/dL plus symp toms BUN 16 10 - 20 mg/dL [facility] Creatinine 1.04 0.80 - 1.50 mg/dL [facility] Sodium 141 135 - 145 mmol/L [facility] Potassium 4.5 3.5 - 5.0 mmol/L [facility] [...] Calcium 8.1 (L) 8.5 - 10.5 mg/dL [facility] Estimated GFR >60 >=60 [facility] Comment: The reported eGFR should be multiplied b y 1.2 for patients. The MDRD is not an appropriate measure o f renal function for patients with body mass extremes or in patients with acute kidney failure. http://[employer]/DHnkdep http://[employer]/DHMCnkf Specimen Anatomical Collection Method Collection Time Receive d Time (Source) Location / / Volume Laterality Blood specimen 07/06/2017 8:10 AM 017 8:21 (specimen) EST AM EST Resulting Agency Comment Spec In Lab Daphne Shahid MD CHEMISTRY ORDERABLES Performing Organization Address City/State/ZIP [place] [address] POCT Glucose (07/06/2017 7:34 AM EST) P athologist Signature POC Glucose 198 65 - [address] [facility] mg/dL [facility] Comment: Supplemental ranges: <140 mg/dL before meals <180 mg/dL all other times of the day Specimen Anatomical Collection Method Collection Time Receive d Time (Source) Location / / Volume Laterality Blood specimen 07/06/2017 7:34 AM 017 7:34 (specimen) EST AM EST Daphne Shahid MD POINT OF CARE TEST ORDERABLE S Performing Organization Address City/State/ZIP Code Phon e Number [address] POCT Glucose (07/06/2017 7:03 AM EST) P athologist Signature POC Glucose 181 65 - [address] [facility] mg/dL [facility] Comment: Supplemental ranges: <140 mg/dL before meals <180 mg/dL all other times of the day Specimen Anatomical Collection Method Collection Time Receive d Time (Source) Location / / Volume Laterality Blood specimen 07/06/2017 7:03 AM 017 7:03 (specimen) EST AM EST Daphne Shahid MD POINT OF CARE TEST ORDERABLE S Performing Organization Address City/State/[place] [address] XR Chest PA or [...] Glucose 172 65 - 199 [facility] mg/dL [facility] Comment: Supplemental ranges: <140 mg/dL before meals <180 mg/dL all other times of the day Specimen Anatomical Collection Method Collection Time Receive d Time (Source) Location / / Volume Laterality Blood specimen 07/06/2017 6:21 AM 017 6:21 (specimen) EST AM EST Daphne Shahid MD POINT OF CARE TEST ORDERABLE S Performing Organization Address City/State/[place] [address] POCT Glucose (07/06/2017 5:08 AM EST) athologist Signature POC Glucose 154 65 - 199 [facility] mg/dL [facility] Comment: Supplemental ranges: <140 mg/dL before meals <180 mg/dL all other times of the day Specimen Anatomical Collection Method Collection Time Receive d Time (Source) Location / / Volume Laterality Blood specimen 07/06/2017 5:08 AM 017 5:08 (specimen) EST AM EST Daphne Shahid MD POINT OF CARE TEST ORDERABLE S Performing Organization Address City/State/[place] [address] POCT Glucose (07/06/2017 4:05 AM EST) athologist Signature POC Glucose 142 65 - 199 [facility] Comment: Supplemental ranges: <140 mg/dL before meals <180 mg/dL all other times of the day Specimen Anatomical Collection Method Collection Time Receive d Time (Source) Location / / Volume Laterality Blood specimen 07/06/2017 4:05 AM 017 4:05 (specimen) EST AM EST Daphne Shahid MD POINT OF CARE TEST ORDERABLE S Performing Organization Address City/[facility] Phon e Number [address] POCT Glucose (07/06/2017 3:00 AM EST) athologist Signature POC Glucose 116 65 - 199 [facility] Comment: Supplemental ranges: <140 mg/dL before meals <180 mg/dL all other times of the day Specimen Anatomical Collection Method Collection Time Receive d Time (Source) Location / / Volume Laterality Blood specimen 07/06/2017 3:00 AM 017 3:00 (specimen) EST AM EST Daphne Shahid MD POINT OF CARE TEST ORDERABLE S Performing Organization Address City/[facility] [place] [address] Potassium (07/06/2017 2:20 AM EST) athologist Signature Potassium 3.9 3.5 - 5.[address] [facility] mmol/L [facility] Comment: Please note: ??Patients with [...] City/State/ZIP Code Phon e Number [place] [phone]OSP[address] LAB[address]ORY [address] Differential, Automated (07/06/2017 2:20 AM EST) P athologist Signature Neutrophils % 72.9 % [facility] Neutr Abs (ANC) 5.53 1.70 - [facility] 6.10 [facility] x10(3)/[facility] LABORATORY Lymphocytes % 16.4 % [facility] Lymphocytes Abs 1.2 0.9 - 3.[address] [facility] x10(3)/[facility] LABORATORY Monocytes % 9.4 % [facility] Monocyte Abs 0.7 0.3 - 0.[address] [facility] x10(3)/[facility] LABORATORY Eosinophils % 0.5 % [facility] Eosinophils Abs 0.0 0.0 - 0.[address] [facility] x10(3)/[facility] LABORATORY Basophils % 0.4 % [facility] Basophils Abs 0.0 0.0 - 0.[address] [facility] x10(3)/[facility] LABORATORY Immature Gran % 0.40 % [...] Abs 0.03 0.00 - 0.04 x10(3)/[facility] LABORATORY Specimen Anatomical Collection Method Collection Time Receive d Time (Source) Location / / Volume Laterality Blood specimen 07/06/2017 2:20 AM 017 2:33 (specimen) EST AM EST Resulting Agency Comment Spec In Lab Daphne Shahid MD HEMATOLOGY ORDERABLES Performing Organization Address City/State/ZIP [place] [address] (ABNORMAL) Hemogram (07/06/2017 2:20 AM EST) Analysis Performed At Patho logist Time Signature WBC 7.6 4.0 - 9.[address] [facility] x10(3)/[facility] LABORATORY RBC 4.52 (L) 4.58 - [facility] 5.54 [facility] x10(6)/[facility] LABORATORY Hemoglobin 13.4 (L) 13.7 - [facility] 16.5 gm/dL [facility] Hematocrit 39.7 (L) 40.5 - [facility] 48.5 % [facility] MCV 87.8 82.9 - [facility] 93[facility]1 [facility] LABORATORY MCH 29.6 27.5 - [facility] 32.1 pg [facility] MCHC 33.8 32.0 - [facility] 35.7 gm/dL [facility] Platelets 189 145 - [address] [facility] x10(3)/[facility] LABORATORY RDWSD 45.6 (H) 36.0 - [facility] 45.0 [facility] LABORATORY RDWCV 14.3 (H) 11.4 - [facility] 13.8 % [facility] MPV 9.1 7.6 - 12.9 [facility] LABORATORY nRBC % Auto 0.0 % [facility] nRBC Abs Auto 0.000 0.000 - [facility] 0.000 [facility] x10(3)/[facility] LABORATORY Specimen Anatomical Collection Method Collection Time Receive d Time (Source) Location / / Volume Laterality Blood specimen 07/06/2017 2:20 AM 017 2:33 (specimen) EST AM EST Resulting Agency Comment Spec In Lab Daphne Shahid MD HEMATOLOGY ORDERABLES Performing Organization Address City/State/Z[place] [address] (ABNORMAL) APTT (07/06/2017 2:20 [...] Address City/State/ZIP Code Phon e Number [address] POCT Glucose (07/06/2017 2:20 AM EST) athologist Signature POC Glucose 115 65 - 199 [facility] mg/dL [facility] Comment: Supplemental ranges: <140 mg/dL before meals <180 mg/dL all other times of the day Specimen Anatomical Collection Method Collection Time Receive d Time (Source) Location / / Volume Laterality Blood specimen 07/06/2017 2:20 AM 017 2:20 (specimen) EST AM EST Daphne Shahid MD POINT OF CARE TEST ORDERABLE S Performing Organization Address City/[facility]/[place] [address] (ABNORMAL) Cardiac Enzymes (LEB/CGP) (07/06/2017 2:20 AM EST) athologist Signature Troponin-T 2.13 (H) 0.00 - [place] [facility] 0.00 ng/mL [facility] Comment: The 99th percentile for [...] additional sample may be indicated. Reference: Third [place] Definition of Myocardial Infarction. Journal of the [employer] College of Cardiology 2012;60:1581-98 CK, Total 129 0 - 200 unit/L [facility] Specimen Anatomical Collection Method Collection Time Receive d Time (Source) Location / / Volume Laterality Blood specimen 07/06/2017 2:20 AM 017 2:33 (specimen) EST AM EST Resulting Agency Comment Spec In Lab Daphne Shahid MD CHEMISTRY ORDERABLES Performing Organization Address City/State/Z[place] [address] (ABNORMAL) Hemoglobin A1c (07/06/2017 2:20 AM EST) Analysis Performed At Patho logist Time Signature Hemoglobin A1C 6.8 (H) 4.3 - 5.6 [facility] [...] Mellitus, Diabetes Care 2013; 36: Suppl. 1, T97-12 Est Avg Gluc See note mg/dL PROCTOR [...] into estimated average glucose values. ??Diabetes Care 2008:31(8):4587-2161. Specimen Anatomical Collection Method Collection Time Receive d Time (Source) Location / / Volume Laterality Blood specimen 07/06/2017 2:20 AM 017 2:34 (specimen) EST AM EST Resulting Agency Comment Spec In Lab Daphne Shahid MD CHEMISTRY ORDERABLES Performing Organization Address City/State/[place] [address] (ABNORMAL) Lipid Panel (07/06/2017 2:20 AM EST) [facility] Method Time Signature Chol, Total 150 <=239 [place] mg/dL [facility] Triglycerides 129 <=199 [place] mg/dL [facility] HDL 32 (L) >=40 [place] mg/dL [facility] LDL Cholesterol 92 <=190 [place] mg/dL [facility] Chol/HDL Ratio 4.7 ratio [facility] Lipid See Note [place] Interpretation [facility] Comment: Lipid management should be guided by a p atient? s ASCVD risk, goals and preferences. ACC/AHA Guidelines recommend high intens ity statin if clinical ASCVD or LDL greater than or equal to 190 mg/dL. http://iOmandourl.com/NHX-TDS-Kbuyzkgpg Adults aged 40-75 with LDL 70-189 mg/dL should have their 10 year ASCVD risk estimated with the ACC/AHA ASCVD risk es timator http://tools.acc.org/EGXUB-Lrln-Bfvbskit r/ Statin should be discussed if risk [...] Shahid MD CHEMISTRY ORDERABLES Performing Organization Address City/[facility]/ZIP Code Phon e Number [address] POCT Glucose (07/06/2017 1:09 AM EST) athologist Signature POC Glucose 121 65 - 199 [facility] mg/dL [facility] Comment: Supplemental ranges: <140 mg/dL before meals <180 mg/dL all other times of the day Specimen Anatomical Collection Method Collection Time Receive d Time (Source) Location / / Volume Laterality Blood specimen 07/06/2017 1:09 AM 017 1:09 (specimen) EST AM EST Daphne Shahid MD POINT OF CARE TEST ORDERABLE S Performing Organization Address City/State/[place] [address] POCT Glucose (07/06/2017 12:06 AM EST) P athologist Signature POC Glucose 147 65 - 199 [facility] mg/dL [facility] Comment: Supplemental ranges: <140 mg/dL before meals <180 mg/dL all other times of the day Specimen Anatomical Collection Method Collection Time Receive d Time (Source) Location / / Volume Laterality Blood specimen 07/06/2017 12:06 7 (specimen) AM EST 12:06 AM EST Daphne Shahid MD POINT OF CARE TEST ORDERABLE S Performing Organization Address City/State/[place] [address] (ABNORMAL) POCT Glucose (07/05/2017 10:56 PM EST) P athologist Signature POC Glucose 200 (H) 65 - 199 [facility] mg/dL [facility] Comment: Supplemental ranges: <140 mg/dL before meals <180 mg/dL all other times of the day Specimen Anatomical Collection Method Collection Time Receive d Time (Source) Location / / Volume Laterality Blood specimen 07/05/2017 10:56 7 (specimen) PM EST 10:56 PM EST Daphne Shahid MD POINT OF CARE TEST ORDERABLE S Performing Organization Address City/State/[place] [address] (ABNORMAL) POCT Glucose (07/05/2017 10:05 PM EST) P athologist Signature POC Glucose 225 (H) 65 - 199 [facility] mg/dL [facility] Comment: Supplemental ranges: <140 mg/dL before meals <180 mg/dL all other times of the day Specimen Anatomical Collection Method Collection Time Receive d Time (Source) Location / / Volume Laterality Blood specimen 07/05/2017 10:05 7 (specimen) PM EST 10:05 PM EST Daphne Shahid MD POINT OF CARE TEST ORDERABLE S Performing Organization Address City/State/[place] [address] (ABNORMAL) POCT Glucose (07/05/2017 9:02 PM EST) P athologist Signature POC Glucose 301 (H) 65 - 199 [place] mg/dL [facility] Comment: Supplemental [...] Address City/State/ZIP Code Phon e Number [place] [id number]OSPITAL LAB[address]ORY Drive XR Chest PA or [...] 474 ms MUSE SYSTEM (Bezet) Calculated P [place] 50 degrees MUSE SYSTEM Calculated R [place] -28 degrees MUSE SYSTEM Calculated T [place] 90 degrees MUSE SYSTEM INTERPRETATION Sinus tachycardia [...] (ABNORMAL) Differential, Automated (07/05/2017 8:20 PM EST) [facility] gist Method Time Signature Neutrophils % 88.4 % [facility] Neutr Abs (ANC) 9.08 (H) 1.70 - [facility] 6.10 [facility] x10(3)/[facility] L LABORATORY Lymphocytes % 7.0 % [facility] Lymphocytes Abs 0.7 (L) 0.9 - 3.[address] [facility] x10(3)/[facility] LABORATORY Monocytes % 3.7 % [facility] Monocyte Abs 0.4 0.3 - 0.[address] [facility] x10(3)/[facility] LABORATORY Eosinophils % 0.1 % [facility] Eosinophils Abs 0.0 0.0 - 0.[address] [facility] x10(3)/[facility] LABORATORY Basophils % 0.2 % [facility] Basophils Abs 0.0 0.0 - 0.[address] [facility] x10(3)/[facility] LABORATORY Immature [...] Organization Address City/State/Z[place] [address] (ABNORMAL) Hemogram (07/05/2017 8:20 PM EST) Analysis Performed At Patho logist Time Signature WBC 10.3 (H) 4.0 - 9.[address] [facility] x10(3)/[facility] LABORATORY RBC 4.64 4.58 - [facility] 5.54 [facility] x10(6)/[facility] LABORATORY Hemoglobin 14.1 13.7 - [facility] 16.[facility] gm/dL [facility] Hematocrit 40.8 40.5 - [facility] 48.5 % [facility] MCV 87.9 82.9 - [facility] 93.1 [facility] LABORATORY MCH 30.4 27.5 - [facility] 32.1 pg [facility] MCHC 34.6 32.0 - [facility] 35.7 gm/dL [facility] Platelets 204 145 - [address] [facility] x10(3)/[facility] LABORATORY RDWSD 46.1 (H) 36.0 - [facility] 45.0 [facility] LABORATORY RDWCV 14.5 (H) 11.4 - [facility] 13.8 % [facility] MPV 9.7 7.6 - 12.9 [facility] LABORATORY nRBC % Auto 0.0 % [facility] nRBC Abs Auto 0.000 0.000 - [facility] 0.000 [facility] x10(3)/[facility] LABORATORY Specimen Anatomical Collection Method Collection Time Receive d Time (Source) Location / / Volume Laterality Blood specimen 07/05/2017 8:20 PM 017 8:27 (specimen) EST PM EST Resulting Agency Comment Spec In Lab Daphne Shahid MD HEMATOLOGY ORDERABLES Performing Organization Address [facility]/[place] [address] APTT (07/05/2017 8:20 PM [...] HEMATOLOGY ORDERABLES Performing Organization Address [facility] [place] [address] (ABNORMAL) Cardiac Enzymes (LEB/CGP) (07/05/2017 8:20 PM EST) athologist Signature Troponin-T 2.11 (H) 0.00 - [facility] 0.00 ng/mL [facility] Comment: The 99th percentile for [...] additional sample may be indicated. Reference: Third [place] Definition of Myocardial Infarction. Journal of the [employer] College of Cardiology 2012;60:1581-98 CK, Total 149 0 - 200 unit/L [facility] Specimen Anatomical Collection Method Collection Time Receive d Time (Source) Location / / Volume Laterality Blood specimen 07/05/2017 8:20 PM 017 8:27 (specimen) EST PM EST Resulting Agency Comment Spec In Lab Daphne Shahid MD CHEMISTRY ORDERABLES Performing Organization Address City/[facility]/[place] [address] (ABNORMAL) Magnesium (07/05/2017 8:20 PM EST) P athologist Signature Magnesium 0.68 (L) 0.69 - 1.[address] [facility] mmol/L [facility] Specimen Anatomical Collection Method Collection Time Receive d Time (Source) Location / / Volume Laterality Blood specimen 07/05/2017 8:20 PM 017 8:27 (specimen) EST PM EST Resulting Agency Comment Spec In Lab Daphne Shahid MD CHEMISTRY ORDERABLES Performing Organization Address City/[facility]/[place] [address] (ABNORMAL) Basic Metabolic Panel (non-fasting) (07/05/2017 8:20 PM EST) P athologist Signature Glucose Lvl 321 (H) 65 - [address] [facility] mg/dL [facility] Comment: Diabetes: >=200 mg/dL plus symp toms BUN 20 10 - 20 mg/dL [facility] Creatinine 1.12 0.80 - 1.50 mg/dL [facility] Sodium 139 135 - 145 mmol/L [facility] Potassium 3.8 3.5 - 5.0 mmol/L [facility] [...] Calcium 8.1 (L) 8.5 - 10.5 mg/dL [facility] Estimated GFR >60 >=60 [facility] Comment: The reported eGFR should be multiplied b y 1.2 for patients. The MDRD is not an appropriate measure o f renal function for patients with body mass extremes or in patients with acute kidney failure. http://[employer]/DHnkdep http://[employer]/DHnkf Specimen Anatomical Collection Method Collection Time Receive d Time (Source) Location / / Volume Laterality Blood specimen 07/05/2017 8:20 PM 017 8:27 (specimen) EST PM EST Resulting Agency Comment Spec In Lab Daphne Shahid MD CHEMISTRY ORDERABLES Performing Organization Address City/[facility]/ZIP [place] [address] (ABNORMAL) POCT Glucose (07/05/2017 7:32 PM EST) P athologist Signature POC Glucose 296 (H) 65 - [address] [facility] mg/dL [facility] Comment: Supplemental ranges: <140 mg/dL before meals <180 mg/dL all other times of the day Specimen Anatomical Collection Method Collection Time Receive d Time (Source) Location / / Volume Laterality Blood specimen 07/05/2017 7:32 PM 017 7:32 (specimen) EST PM EST Daphne Shahid MD POINT OF CARE TEST ORDERABLE S Performing Organization Address City/[facility]/ZIP [place] [address] CARDIAC CATHETERIZATION (07/05/2017 6:47 PM EST) Specimen (Source) Anatomical Location Collection Method / Collectio n Time Received Time / Laterality Volume Narrative CARDIOMAC SYSTEM - 07/05/2017 7:27 PM ES T ?[facility] ? Cardiac Cathete rization/Intervention Report ? Patient Name: Natalya, Gregory ? Procedure Date: 07/05/2017 ? A #: [id number] ? Primary Physician: Jet Mckenna ? Case #: [id number] ? File Name: [id number] ? Catheterization Order Number: [id number] ? [facility] ? Final Report [place], [place] ? Patient Name: ? Gregory Natalya ?ID#: [id number] ? : ?1945 ? Procedure Date: ? [...] presented with: non -STEMI (w/i 7 days). Amelia ?Cardiovascular Society angina c lass was IV. [...] graphy and IABP insertion in labor relations officer. ? Jet Mckenna M.D. ? Electronically Signed by: Jet bunch M.D. ? Report Finalized: 07/05/2017 ??19:23 ? Report Last Ammended: 10/26/2017 ??10:29 ? Procedure Note Jet Mckenna MD - 10/26/2017Formatt ing of this note might be different from the original. [facility] Cardiac Catheterization/Intervention Re port Patient Name: Gregory Hoang Procedure Date: 07/05/2017 A #: [id number] Primary Physician: Jet Mckenna Case #: [id number] File Name: [id number] Catheterization Order Number: [id number] [facility] Final Report [place], [place] Patient Name: Gregory Hoang ID#: [id number] 3- : 1945 Procedure Date: July 05, [...] functional class IV, an ejection fraction less vea n or equal to 35%, congestive heart [...] presented with: non-STEMI ( w/i 7 days). Amelia Cardiovascular Society angina class was IV. No [...] y and IABP insertion in labor relations officer. Jet Mckenna M.D. Electronically Signed by: Jet [...] E ? (Age): 1945(72y) Med Rec#: ? [id number] ?Sex: ?M ? [place] ? [facility] [place]Ht / Wt: ??173(cm)/86(kg) Pt. Loc: ?CCU ? BSA: ?2 Study Date: ?? 07/05/2017 ?Pt. Type: Inpatient Tape: ? Referring: Daphne Shahid ([id number]) Referring: MANDA ALCANTAR Reading: Blade Preston ([id number]) Taping Foreman: Dayami Paula BA, [facility] Diagnosis: *ICD-10-PCS Non-ST elevation (NSTEMI) m [...] E-wave Vmax ?0.8 ?m/sec ? MV deceleration [id number] ?msec ? MV A-wave Vmax ?0.8 ?m/sec [...] ? Mid-Inferior ?Akinetic ? Mid-Inferoseptal ?Hypokinetic ? [place]-Septal ? Akinetic ? [place]-Anterior ? Hypokinetic ? [place]-Lateral ?Hypokinetic ? [place]-Inferior ? Akinetic ? [place]-Tip ?Akinetic ? This report has been electronically sign ed by: _ Blade Preston MD ? 07/06/2017 08 :53:15 Images reviewed and interpretation verif ied [facility] Cardiac Ultrasound Laboratory Procedure Note Blade Preston MD - 07/06/2017Formatt ing of this note might be different from the original. Procedure: Transthoracic Echocardiogram Patient: NATALYA MCBRIDE(Age): [birth year]72y) Med Rec#: [id number] Sex: M [place] [facility] Ht / Wt: 173(cm)/86(kg) Pt. Loc: [facility] BSA: 2 Study Date: 07/05/2017 Pt. Type: Inpatie nt Tape: Referring: Daphne Shahid ([id number]) Referring: MANDA ALCANTAR Reading: Blade Preston ([id number]) Taping Foreman: Dayami Paula BA, [facility] Diagnosis: *ICD-10-PCS Non-ST elevation (NSTEMI) m [...] MV E-wave Vmax 0.8 m/sec MV deceleration [id number] msec MV A-wave Vmax 0.8 m/sec MV [...] Hypokinetic Mid-Posterolateral Hypokinetic Mid-Inferior Akinetic Mid-Inferoseptal Hypokinetic [place]-Septal Akinetic [place]-Anterior Hypokinetic [place]-Lateral Hypokinetic [place]-Inferior Akinetic [place]-Tip Akinetic This report has been electronically sign [...] (ANC) 5.26 1.70 - [facility] 6.10 [facility] x10(3)/[facility] LABORATORY Lymphocytes % 13.3 % [facility] Lymphocytes Abs 0.9 0.9 - 3.[address] [facility] x10(3)/[facility] LABORATORY Monocytes % 8.2 % [facility] Monocyte Abs 0.6 0.3 - 0.[address] [facility] x10(3)/[facility] LABORATORY Eosinophils % 0.7 % [facility] Eosinophils Abs 0.0 0.0 - 0.[address] [facility] x10(3)/[facility] LABORATORY Basophils % 0.4 % [facility] Basophils Abs 0.0 0.0 - 0.[address] [facility] x10(3)/[facility] LABORATORY Immature Gran % 0.40 % [...] Melisa Gran Abs 0.03 0.00 - 0.04 x10(3)/[facility] Y [facility] LABORATORY Specimen Anatomical Collection Method Collection Time Receive d Time (Source) Location / / Volume Laterality Blood specimen 07/05/2017 4:55 PM 017 5:24 (specimen) EST PM EST Resulting Agency Comment Spec In Lab Daphne Shahid MD HEMATOLOGY ORDERABLES Performing Organization Address City/State/Z[place] [address] (ABNORMAL) Hemogram (07/05/2017 4:55 PM EST) Analysis Performed At Patho logist Time Signature WBC 6.8 4.0 - 9.[address] [facility] x10(3)/[facility] LABORATORY RBC 4.67 4.58 - [place] 5.54 [facility] x10(6)/[facility] LABORATORY Hemoglobin 14.0 13.7 - [facility] 16.[facility] gm/dL [facility] Hematocrit 41.0 40.5 - [facility] 48.5 % [facility] MCV 87.8 82.9 - [facility] 93.1 [facility] LABORATORY MCH 30.0 27.5 - [facility] 32.1 pg [facility] MCHC 34.1 32.0 - [facility] 35.7 gm/dL [facility] Platelets 197 145 - [address] [facility] x10(3)/[facility] LABORATORY RDWSD 46.4 (H) 36.0 - [facility] 45.0 [facility] LABORATORY RDWCV 14.5 (H) 11.4 - [facility] 13.8 % [facility] MPV 9.7 7.6 - 12.9 [facility] LABORATORY nRBC % Auto 0.0 % [facility]OR[facility]ORY nRBC Abs Auto 0.000 0.000 - [facility] 0.000 [facility] x10(3)/[facility] LABORATORY Specimen Anatomical Collection Method Collection Time Receive d Time (Source) Location / / Volume Laterality Blood specimen 07/05/2017 4:55 PM 017 5:24 (specimen) EST PM EST Resulting Agency Comment Spec In Lab Daphne Shahid MD HEMATOLOGY ORDERABLES Performing Organization Address City/State/Z[place] [address] (ABNORMAL) Cardiac Enzymes (LEB/CGP) (07/05/2017 4:55 PM EST) P athologist Signature Troponin-T 1.69 (H) 0.00 - [facility] ng/mL [facility] Comment: The 99th percentile for [...] additional sample may be indicated. Reference: Third [place] Definition of Myocardial Infarction. Journal of the [employer] College [employer] Cardiology 2012;60:1581-98 CK, Total 191 0 - 200 unit/L [facility] Specimen Anatomical Collection Method Collection Time Receive d Time (Source) Location / / Volume Laterality Blood specimen 07/05/2017 4:55 PM 017 5:56 (specimen) EST PM EST Resulting Agency Comment Spec In Lab Daphne Shahid MD CHEMISTRY ORDERABLES Performing Organization Address City/State/[place] [address] (ABNORMAL) pro-Brain Natriuretic Peptide (07/05/2017 4:55 PM EST) P athologist Signature ProBNP 1,598 (H) <=125 [facility] Specimen Anatomical Collection Method Collection Time Receive d Time (Source) Location / / Volume Laterality Blood specimen 07/05/2017 4:55 PM 017 5:24 (specimen) EST PM EST Resulting Agency Comment Spec In Lab Daphne Shahid MD CHEMISTRY ORDERABLES Performing Organization Address City/State/ZIP [place] [address] [facility] [address] Magnesium (07/05/2017 4:55 PM EST) athologist Signature Magnesium 0.78 0.69 - 1.[address] [facility] mmol/L [facility] Specimen Anatomical Collection Method Collection Time Receive d Time (Source) Location / / Volume Laterality Blood specimen 07/05/2017 4:55 PM 017 5:24 (specimen) EST PM EST Resulting Agency Comment Spec In Lab Daphne Shahid MD CHEMISTRY ORDERABLES Performing Organization Address City/State/ZIP Code Phon e Number [address] (ABNORMAL) Basic Metabolic Panel (non-fasting) (07/05/2017 4:55 PM EST) athologist Signature Glucose Lvl 230 (H) 65 - [address] [facility] mg/dL [facility] Comment: Diabetes: >=200 mg/dL plus symp toms BUN 19 10 - 20 mg/dL [facility] Creatinine 1.04 0.80 - 1.50 mg/dL [facility] Sodium 142 135 - 145 mmol/L [facility] Potassium 4.0 3.5 - 5.0 mmol/L [facility] Estimated GFR >60 >=60 [facility] Comment: The reported eGFR should be multiplied b y 1.2 for patients. The MDRD is not an appropriate measure o f renal function for patients with body mass extremes or in patients with acute kidney failure. http://[employer].com/DHnkdep http://[employer].com/DHMCnkf Specimen Anatomical Collection Method Collection Time Receive d Time (Source) Location / / Volume Laterality Blood specimen 07/05/2017 4:55 PM 017 5:24 (specimen) EST PM EST Resulting Agency Comment Spec In Lab Daphne Shahid MD CHEMISTRY ORDERABLES Performing Organization Address City/[facility] [place] [address] (ABNORMAL) APTT (07/05/2017 4:55 [...] Shahid MD HEMATOLOGY ORDERABLES Performing Organization Address City/[facility]/[place] [address] (ABNORMAL) POCT Glucose (07/05/2017 4:53 PM EST) P athologist Signature POC Glucose 208 (H) 65 - [address] [facility] mg/dL [facility] Comment: Supplemental ranges: <140 mg/dL before meals <180 mg/dL all other times of the day Specimen Anatomical Collection Method Collection Time Receive d Time (Source) Location / / Volume Laterality Blood specimen 07/05/2017 4:53 PM 017 4:53 (specimen) EST PM EST Daphne Shahid MD POINT OF CARE TEST ORDERABLE S Performing Organization Address City/[facility]/[place] [address] EKG 12 Lead (07/05/2017 4:32 PM EST) Component Value Ref Range Test Analysis Performed Pathologis t Method Time At Signature Ventricular rate 97 BPM MUSE SYSTEM Atrial Rate 97 BPM MUSE SYSTEM P-R Interval 148 ms MUSE SYSTEM QRS Duration 96 ms MUSE SYSTEM Q-T Interval 364 ms MUSE SYSTEM QTC Calculated 462 ms MUSE SYSTEM (Bezet) Calculated P [place] 48 degrees MUSE SYSTEM Calculated R [place] -33 degrees MUSE SYSTEM Calculated T [place] 98 degrees MUSE SYSTEM INTERPRETATION Normal sinus [...] Coronary atherosclerosis of unspecified type of vessel, red cliff or graft Cardiomyopathy, ischemic Other specified forms [...] post-op day 1 in the AM Give TX if unable to take PO, Routine Given [...] in dextrose 5% 250 mL EST infusion (ADOLESCENT PSYCHIATRIST) CONTINUOUS PRN, Starting on Wed07/05/17 at 1837, [...] post-op day 1 in the AM Give TX if unable to take PO, Routine atorvastatin [...] Patient/family refused) 0900 (Not Given - Provider: Myran mendoza RN - Reason: Patient/family refused) 17 [...] post-op day 1 in the AM Give TX if unable to take PO
Routine Group [...]
Routine documented in this encounter Care Teams Commercial Engineer Relationship Specialty Start Date End Date Lovely Vicente MD PCP - General 04/16/15 [facility] [address] [place] [address] documented as of this encounter
--- OUTSIDE RECORDS SUMMARY | 2022-03-04 14:59 | XMS_ITS | Encounter Summary ---
:1945 Author Organization [facility] [place] [address] Care Team Providers Name Role Phone Lovely Vicente MD Primary Care Provider Encounter Details Date Type Department Care Team Description 09/03/2016 Laboratory Appointment Lab at [facility] [place]x [place] papillary [facility] [place] [id number] Social History Tobacco Use Types Packs/Day Years [...] Nobles MD [facility] ER [address] TADEO [place], [place] [address] (Wo rk) 06/10/2022 Office Visit Dermatology Laura Scherer MD [facility] ER DR TEJA GR-DERMAT [place], [place] [address] (Wo rk) documented as of [...] EST) P athologist Signature Thyroglobulin <0.4 <=54.9 [facility] ng/mL [facility] Comment: Interpret with caution. Tg [...] BR et al. J Clin Endo Metab 1999;84:2397-0918). Assay performed using the DPC Immulite T g immunometric assay. (lowest detection limit is <0.4 ng/ml). Thyroglob Ab <20.0 0.0 - 40.0 IU/mL [facility] Comment: Assay performed is [...] Address City/State/ZIP [place] [address] TSH (09/03/2016 11:07 AM EST) P athologist Signature TSH 3.01 0.27 - 4.20 KATALINA DAVIS mcIU/mL [facility] Specimen Anatomical Collection Method Collection Time Receive d Time (Source) Location / / Volume Laterality Blood specimen 09/03/2016 11:07 7 (specimen) AM EST 11:22 AM EST Resulting Agency Comment Spec In Lab Luz Prescott MD CHEMISTRY ORDERABLES Performing Organization Address City/State/ZIP [place] [address] documented in this encounter Visit Diagnoses Diagnosis Hx of papillary thyroid carcinoma Personal history of malignant neoplasm o f thyroid documented in this encounter Care Teams Insulation Board Back Tender Relationship Specialty Start Date End Date Lovely Vicente MD PCP - General 04/16/[address] [place] [address] documented as of this encounter
--- OUTSIDE RECORDS SUMMARY | 2022-03-04 14:59 | XMS_ITS | Encounter Summary ---
:1945 Author Organization [facility] [place] [address] Care Team Providers Name Role Phone Lovely Vicente MD Primary Care Provider Reason for Visit Reason Comments Nevus excision dysplastic nevus mi d upper abdomen Encounter Details Date Type Department Care Team Description 12/03/2016 Procedure visit Dermatology at [facility] Dysplastic nevus of Road MD Adrián trunk [address] [facility] [address] [facility] [phone] [address]OL[address] [place] [address] Social History Tobacco Use Types Packs/Day Years [...] Halima Cordero MD during the day at [phone] Nurse: Mira [phone] Amy After 5 PM and on weekends, please call the hospital number , and ask for the Wind Turbine Service Technician contact lens lathe operator. documented in this encounter Progress Notes Halima Cordero MD - 12/10/2016 5:41 PM EDT Gwendolyn, Excision shows scar, there is no residual of the severely dysplastic nevus. Please notify patient and check on wound healing. Thank you, DTB Halima Cordero MD - 12/03/2016 3:00 PM EDT Images from the original note were not included. Dermatology Procedure note: Attending: Halima Cordero MD Singing Messenger: Mira James LPN Referring MD: Rigoberto Garcia [...] to call the clinic or the on-call telephone sales agent over the weekend. ??? Name of Procedure? [...] MD [facility] [address] [place], [place] [address] (Wo rk) 06/10/2022 Office Visit Dermatology Laura Scherer MD [facility] DR [address]MAT [place], [place] [address] (Wo rk) documented as [...] Component Value Ref Test Analysis Performed At [facility] Method Time Signature Surgical [id number] ?Location: [facility] Report The signing pathologist has (i) [...] Clinical Diagnosis: Dysplastic nevus, see previous pathology [id number] SPECIMEN PROCESSING A - Labeled/Fixative: Mid-upper abdomen, [...] [facility] [place] [address] Specimen to Pathology (NON-OR) (12/03/2016 3:31 PM EDT) Specimen Anatomical Collection Method Collection Time Receive d Time (Source) Location / / Volume Laterality AP Specimen 12/03/2016 3:31 PM 7 6:27 EDT PM EDT Narrative [facility] ORY - 12/03/2016 6:27 PM EDT Specimen requisition ordered. ??Separate Pathology report to follow Resulting Agency Comment Spec In Lab Halima Cordero MD PATHOLOGY/CYTOLOGY ORDERABLE S Performing Organization Address City/State/[place] [address] documented in this encounter Visit Diagnoses Diagnosis Dysplastic nevus of trunk Benign neoplasm of skin of trunk, except scrotum documented in this encounter Care Teams Commissioning Specialist Relationship Specialty Start Date End Date Lovely Vicente MD PCP - General 04/16/[address] [place] [address] documented as of this encounter
--- OUTSIDE RECORDS SUMMARY | 2022-03-04 14:59 | XMS_ITS | Encounter Summary ---
:1945 Author Organization [facility] [place] [address] Care Team Providers Name Role Phone Lovely Vicente MD Primary Care Provider Encounter Details Date Type Department Care Team Description 11/28/2016 Telephone Dermatology at [facility] Rigoberto Garcia III, [address] [place] [address] [facility] [phone] [facility] SIMÓN-DERMAT [place], [place] [address] (Wo rk) Social History [...] Rigoberto Garcia MD Section of Dermatology [facility] documented in this encounter Plan of Treatment Upcoming Encounters Date Type Specialty Care Team Description 03/26/2022 Office Visit Cardiology Vitaliy Nobles MD [facility] [address] T[address] [place], [place] [address] (Wo rk) 06/10/2022 Office Visit Dermatology Laura Scherer MD [facility] DR TE[address] MARIE-DERMAT [place], [place] [address] (Wo rk) documented as of this encounter Visit Diagnoses Not on filedocumented in this encounter Care Teams Inside Sales Director Relationship Specialty Start Date End Date Lovely Vicente MD PCP - General 04/16/[address] [place] [address] [address] [place] [address] documented as of this encounter
--- OUTSIDE RECORDS SUMMARY | 2022-03-04 14:59 | XMS_ITS | Encounter Summary ---
:1945 [place] [address] Care Team Providers Name Role Phone Lovely Vicente MD Primary Care Provider Reason for Visit Reason Onset Date Comments Other 12/09/2016 RESULTS Encounter Details Date Type Department Care Team Description 12/09/2016 Telephone Dermatology at [facility] Halima Cadet MD Other (RESULTS) [address] [facility] [place] [place] [address] [facility]-DERMATOLGY [phone] [place], [place] [address] (Wo rk) Social History Tobacco [...] EDT Spoke with patient's , Kisha (personal in store marketing representative). I advised her Don's pathology results [...] back. She can be reached back at [phone] documented in this encounter Plan of Treatment Upcoming Encounters Date Type Specialty Care Team Description 03/26/2022 Office Visit Cardiology Vitaliy Nobles MD [facility] [address] [place], [place] [address] (Wo rk) 06/10/2022 Office Visit Dermatology Laura Scherer MD [facility] DR [address]-DERMAT [facility] [place], [place] [address] (Wo rk) documented as of this encounter Visit Diagnoses Not on filedocumented in this encounter Care Teams Maintenance Data Analyst Relationship Specialty Start Date End Date Lovely Vicente MD PCP - General 04/16/[address] [place] [address] documented as of this encounter
--- OUTSIDE RECORDS SUMMARY | 2022-03-04 14:59 | XMS_ITS | Encounter Summary ---
:1945 Author Organization [facility] [place] [address] Care Team Providers Name Role Phone Lovely Vicente MD Primary Care Provider Reason for Visit Reason Comments Skin Check Encounter Details Date Type Department Care Team Description 06/05/2016 Office Visit Dermatology at [facility] istory of melanoma; Abdelrahman HOOPER MD Seborrheic keratosis; [address] [facility] [place] (actinic keratosis); [place] [address] Multiple nevi; [phone] [facility] [address]DERMATOL[address] [place], [place] [address] Social History Tobacco Use Types [...] Diagnostic, Drum (ACCU-CHEK COMPACT TEST) Strip by [facility].(Non- Drug; Combo Route) [...] Rigoberto Garcia MD Section of Dermatology [facility] documented in this encounter Plan of Treatment Upcoming Encounters Date Type Specialty Care Team Description 03/26/2022 Office Visit Cardiology Vitaliy Nobles MD [facility] ER [address] TADE[address] [place], [place] [address] (Wo rk) 06/10/2022 Office Visit Dermatology Laura Scherer MD [facility] ER DR TEJA GR[facility]DERMAT [facility] [place] [place], [place] [address] (Wo rk) documented as of this encounter Visit Diagnoses Diagnosis History of melanoma Personal history of malignant melanoma o f skin Seborrheic keratosis Other seborrheic keratosis [place] (actinic keratosis) Actinic keratosis Multiple nevi Benign neoplasm of skin, site unspecifie d Scar Scar condition and fibrosis of skin documented in this encounter Care Teams Chiropractic Physician Relationship Specialty Start Date End Date Lovely Vicente MD PCP - General 04/16/15 [facility] [address] [place] [address] documented as of this encounter
--- OUTSIDE RECORDS SUMMARY | 2022-03-04 14:59 | XMS_ITS | Encounter Summary ---
:1945 Author Organization [facility] Address [facility] [place] [address] Care Team Providers Name Role Phone Lovely Vicente MD Primary Care Provider Reason for Visit Reason Comments Skin Check Encounter Details Date Type Department Care Team Description 11/05/2015 Office Visit Dermatology at [facility] benign nevi; Abdelrahman HOOPER MD Lentigines; [address] [facility] History of melanoma; [place] [address] Skin exam for malignant neoplasm [phone] [facility]-DERMATOLGY [place], [place] [address] Social History Tobacco Use Types [...] Drum (ACCU-CHEK COMPACT TEST) Strip by [facility]Non- Drug; Combo Route) route 2 times daily. [...] [facility] [address] T[address] [place], [place] [address] (Wo rk) 06/10/2022 Office Visit Dermatology Laura Scherer MD [facility] [address] [place], [place] [address] (Wo rk) documented as of this encounter Visit Diagnoses Diagnosis Multiple benign nevi Benign neoplasm of skin, site unspecifie d Lentigines Other dyschromia History of melanoma Personal history of malignant melanoma o f skin Skin exam for malignant neoplasm Screening for malignant neoplasm of the skin documented in this encounter Care Teams Six Sigma Project Manager Relationship Specialty Start Date End Date Lovely Vicente MD PCP - General 04/16/[address] [place] [address] [address] [place] [address] documented as of this encounter
--- OUTSIDE RECORDS SUMMARY | 2022-03-04 14:59 | XMS_ITS | Encounter Summary ---
:1945 Author Organization [facility] [place] [address] Care Team Providers Name Role Phone Lovely Vicente MD Primary Care Provider Reason for Visit Reason Comments Skin Lesion Encounter Details Date Type Department Care Team Description 11/24/2016 [facility] of uncertain behavior of skin; Road IIIMD Pigmented skin lesion of uncertain natur e; [address] [facility] [place] [address] [facility] SIMÓN-DERMATOLGY [place], [place] [address] Social History Tobacco Use Types [...] or concerns, please call the office at [phone]. If it is after 5PM, or a holiday or weekend, please call [phone] and ask for the Laborer Rags on-call. documented in this encounter Progress Notes [...] 71 y.o. year old male.Established patient of [employer]. Last seen 06/05/16. Here today for new [...] encounter. Rigoberto Garcia MD Section of Dermatology [facility] documented in this encounter Plan of Treatment Upcoming Encounters Date Type Specialty Care Team Description 03/26/2022 Office Visit Cardiology Vitaliy Nobles MD [facility] [address] [place], [place] [address] (Wo lissa) 06/10/2022 Office Visit Dermatology Laura Scherer MD [facility] DR [address]-DERMAT [place], [place] [address] (Wo lissa) documented as of [...] [facility] Method Time Signature Surgical [id number] ?Location: [facility] Report The signing pathologist has [...] Organization Address City/State/[place] [address] Specimen to Pathology (NON-OR) (11/24/2016 8:28 AM EDT) Specimen Anatomical Collection Method Collection Time Receive d Time (Source) Location / / Volume Laterality AP Specimen 11/24/2016 8:28 AM 7 9:29 EDT AM EDT Narrative [facility] LAB[facility]AT ORY - 11/24/2016 9:29 AM EDT Specimen requisition ordered. ??Separate Pathology report to follow Resulting Agency Comment Spec In Lab Rigoberto Garcia III, MD PATHOLOGY/CYTOLOGY ORDERABLE S Performing Organization Address City/State/[place] [address] documented in this encounter Visit Diagnoses Diagnosis Neoplasm of uncertain behavior of skin Pigmented skin lesion of uncertain natur e History of melanoma Personal history of malignant melanoma o f skin documented in this encounter Care Teams Artificial Flower Maker Relationship Specialty Start Date End Date Lovely Vicente MD PCP - General 04/16/[address] [place] [address] documented as of this encounter
--- OUTSIDE RECORDS SUMMARY | 2022-03-04 15:00 | XMS_ITS | Encounter Summary ---
:1945 Author Organization [facility] [place] [address] Care Team Providers Name Role Phone Angela Holliday APRN Primary Care Provider Encounter Details Date Type Department Care Team Description 03/28/2013 Surgery Main Operating Room Mesha Mcknight, THYROIDECTOMY, [facility] DR Siddiqui [place] [address] [place] [address] [phone] (Wo rk) Social History Tobacco Use Types [...] please call the General Surgery nurse at [phone], since this may mean that you need morecalcium. Follow-up Appointment: Will be scheduled with Dr. Mcknight in 6 weeks Date and time as well as any required labs will be mailed to you Please call [phone] to confirm date and time of your [...] by calcium supplementation. Phone number for questions: [phone] before 5 PM weekdays [phone] after 5 PM and on weekends/holidays Please follow up with Urology as per their recommendations for Bob removal AttachmentsThe following attachments cannot be sent through Care Everywhere. THYROIDECTOMY: WHAT TO EXPECT AT HOME (PASHTO)URINARY CATHETER CARE: AFTER YOUR VISIT (PASHTO)documented in this encounter Medications at Time of [...] a 68 y.o. male presents to [facility] today for total thyroidectomy. See full [...] Willams MD - 03/28/2013 3:43 PM EDT [facility] Operative Note Patient Name: Gregory Fatima : [id number] MR#: [id number] Case Date: 03/28/2013 Surgeon: Surgeon(s) and Role: [...] was extubated and taken to the [facility] in stable condition. At the end [...] Operative Note Patient Name: Gregory Fatima : [id number] MR#: [id number] Case Date: 03/28/2013 Surgeon: Surgeon(s) and Role: [...] Nobles MD [facility] CARDIOLOGY [place], [place] [address] (Wo rk) 06/10/2022 Office Visit Dermatology Laura Scherer MD [facility] DR TEJA GR[facility] [place] [place] [address] (Wo rk) documented as of [...] Address City/State/ZIP Code Phon e Number [address] CERNER MILLENNIUM (ABNORMAL) POCT [...] CARE TEST ORDERABLE S Performing Organization Address City/[facility]/[place] [address] CERNER MILLENNIUM (ABNORMAL) POCT [...] Address City/State/ZIP Code Phon e Number [address] CERNER MILLENNIUM (ABNORMAL) POCT [...] CARE TEST ORDERABLE S Performing Organization Address City/[facility]/ZIP Code Phon e Number [address] CERNER MILLENNIUM (ABNORMAL) POCT [...] Address City/State/ZIP Code Phon e Number [address] CERNER MILLENNIUM (ABNORMAL) POCT [...] Organization Address City/State/[place] [address] CERNER MILLENNIUM (ABNORMAL) POCT [...] CARE TEST ORDERABLE S Performing Organization Address City/[facility]/ZIP Code Phon e Number [address] CERNER MILLENNIUM (ABNORMAL) POCT [...] Organization Address City/State/[place] [address] CERNER MILLENNIUM Specimen to Pathology (surgical or derm) (03/28/2013 12:14 PM EDT) Specimen Anatomical Collection Method Collection Time Receive d Time (Source) Location / / Volume Laterality AP Specimen 03/28/2013 12:14 03/28/2013 PM EDT 12:14 PM EDT [facility] - 03/28/2013 12:14 PM EDT Specimen requisition ordered. ??Separate Pathology report to follow Mesha Mcknight MD PATHOLOGY/CYTOLOGY ORDERABLE S Performing Organization Address City/State/[place] [address] [facility] Pathology Addendum Report (03/28/2013 12:03 PM EDT) Component Value Ref Test Analysis Performed At [facility] gist Range Method Time Signature Addendum [facility] Report ? [facility] ? Provider: ?? MESHA MCKNIGHT Pt. Name: ?? SHERIF FATIMARY Veda ? Acc #: ?[id number] ?Pt. MRN: ?[id number] ? Col Date: ?? 03/28/2013 ?/Sex: ?1945,(68 [...] MD PATHOLOGY/CYTOLOGY ORDERABLE S Performing Organization Address [facility]/State/[place] [address] [facility] Surgical Pathology Report (03/28/2013 12:03 PM EDT) Component Value Ref Test Analysis Performed At [facility] gist Range Method Time Signature Surgical [facility] Pathology ? [facility] Report ? Provider: ?? MESHA MCKNIGHT Pt. Name: ?? GREGORY FATIMA ? Acc #: ?[id number] ?Pt. MRN: ?[id number] ? Col Date: ?? 03/28/2013 ?/Sex: ?1945,(68 [...] areas of hemorrhage and ? calcifications. ? [facility] ? Provider: ?? MESHA MCKNIGHT Pt. Name: ?? GREGORY FATIMA ? Acc #: ?[id number] ?Pt. MRN: ?[id number] ? Col Date: ?? 03/28/2013 ?/Sex: ?1945,(68 years),Male ? Rec Date: ?? 03/28/2013 ?LOC: ?[facility] ? SURGICAL PATHOLOGY ? SECTIONS/PROCESSING: Photocopying Equipment Mechanic sections are subm itted. (R6) ? B [...] MD PATHOLOGY/CYTOLOGY ORDERABLE S Performing Organization Address [facility]/State/ZIP Code Phon e Number [place] [phone]OS[address] CERNER MILLENNIUM Frozen Section Report (03/28/2013 12:03 PM EDT) Component Value Ref Test Analysis Performed At [facility] Range Method Time Signature Frozen CERNER Section ? [facility] ? Provider: ?? MESHA MCKNIGHT Pt. Name: ?? GREGORY FATIMA ? Acc #: ?[id number] ?Pt. MRN: ?[id number] ? Col Date: ?? 03/28/2013 ?/Sex: ?1945,(68 years),Male ? Rec Date: ?? 03/28/2013 ?LOC: ?[facility] ? FROZEN SECTION REPORT ? ---Frozen Section Report--- ? Part A - Intraoperati ve gross consultation was performed. ??The case was ? discussed by phone with Dr. Mcknight, and no frozen ? section was performed. ? 03/31/13 ??Verified by: ??César STRANGE, Ruben Yusuf, [facility] gist ? The attending [facility] gist whose electronic signature appears on [...] Organization Address City/State/[place] [address] [facility] POCT Glucose (03/28/2013 12:00 PM EDT) P athologist Signature POC Glucose 134 60 - 199 CERNER mg/dL [facility] Comment: Supplemental ranges: <110 mg/dL before meals <200 mg/dL all other times of the day Specimen Anatomical Collection Method Collection Time Receive d Time (Source) Location / / Volume Laterality Blood specimen 03/28/2013 12:00 3 (specimen) PM EDT 12:00 PM EDT Mesha Mcknight MD POINT OF CARE TEST ORDERABLE S Performing Organization Address City/[facility]/ZIP [place] [address] [facility] Specimen to Pathology (surgical or derm) (03/28/2013 11:58 AM EDT) Specimen Anatomical Collection Method Collection Time Receive d Time (Source) Location / / Volume Laterality AP Specimen 03/28/2013 11:58 03/28/2013 AM EDT 11:58 AM EDT N[facility] - 03/28/2013 11:58 AM EDT Specimen requisition ordered. ??Separate Pathology report to follow Mesha Mcknight MD PATHOLOGY/CYTOLOGY ORDERABLE S Performing Organization Address City/[facility]/ZIP [place] [address] [facility]UNITED [facility] Antibody screen (03/28/2013 9:37 AM EDT) Analysis Performed At Patho logist Time Signature Ab Screen Negative [facility] Hospital[facility] Expires at [phone] [facility] 2358 on: MILLENNIUM Specimen Anatomical Collection Method Collection Time Receive d Time (Source) Location / / Volume Laterality Blood specimen 03/28/2013 9:37 AM 013 9:37 (specimen) EDT AM EDT Resulting Agency Comment Spec In Lab Mesha Mcknight MD BLOOD BANK ORDERABLES Performing Organization Address City/State/ZIP Code Phon e Number [place] [phone] [facility] [address] CERNER MILLENNIUM ABO/Rh Typing [...] Address City/State/ZIP Code Phon e Number [address] CERNER MILLENNIUM Differential, Automated [...] Address City/State/[place] [address] CERNER MILLENNIUM (ABNORMAL) Basic [...] intervals supplied above were not validated at [facility]. Results from pediatri c patients should be [...] Mcknight MD CHEMISTRY ORDERABLES Performing Organization Address City/[facility]/ZIP Code [place] [address] CERNER MILLENNIUM (ABNORMAL) CBC [...] Organization Address City/State/[place] [address] CERKERI CARVALHOIUM POCT Glucose (03/28/2013 9:17 AM EDT) P athologist Signature POC Glucose 108 60 - 199 CERNER mg/dL [facility] Comment: Supplemental ranges: <110 mg/dL before meals <200 mg/dL all other times of the day Specimen Anatomical Collection Method Collection Time Receive d Time (Source) Location / / Volume Laterality Blood specimen 03/28/2013 9:17 AM 013 9:17 (specimen) EDT AM EDT Mesha Mcknight MD POINT OF CARE TEST ORDERABLE S Performing Organization Address City/State/ZIP Code Phon e Number [address] [facility] Specimen to Pathology (surgical or derm) (03/28/2013 [...] Address City/State/ZIP Code Phon e Number [address] [facility] documented in this encounter Visit Diagnoses Not [...] override documented in this encounter Care Teams Wet Primer Powder Blender Relationship Specialty Start Date End Date Angela Holliday APRN PCP - General 01/25/13 04/15/15 [address] [place] [address] documented as of this encounter
--- OUTSIDE RECORDS SUMMARY | 2022-03-04 15:00 | XMS_ITS | Encounter Summary ---
:1945 Author Organization [place] [address] Care Team Providers Name Role Phone MiyaAngela STACIE Primary Care Provider Encounter Details Date Type Department Care Team Description 11/27/2013 Orders Only Urology at [facility] Blade Smith, Urinary retention [facility] (Primary Dx) [place] [address] UROLOGY DEPT [place], [place] [address] Social History Tobacco Use Types [...] Nobles MD [facility] ER DR TADEO [place], [place] [address] (Wo rk) 06/10/2022 Office Visit Dermatology Laura Scherer MD [facility] DR [address]-DERMAT OLOGY [place], [place] [address] (Wo rk) documented as of [...] Organization Address City/State/[place] [address] [facility] MILLENNIUM documented in this encounter Visit Diagnoses Diagnosis Urinary retention - Primary Retention of urine, unspecified documented in this encounter Care Teams Security Sme Relationship Specialty Start Date End Date Angela Holliday APRN PCP - General 01/25/13 04/15/[address] [place] [address] documented as of this encounter
--- OUTSIDE RECORDS SUMMARY | 2022-03-04 15:00 | XMS_ITS | Encounter Summary ---
:1945 Author Organization [facility] [place] [address] Care Team Providers Name Role Phone Brody Berrios MD Primary Care Provider Reason for Visit Reason Comments Annual Exam Encounter Details Date Type Department Care Team Description 09/22/2011 Follow-Up Dermatology Arik Tipton Psoriasis (Primary Dx); [facility] MD Jorge Personal history of other malignant neop lasm of skin Drive [place] [phone] DERMATOLOGY DEPT . 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 His only complaints tail bone [...] changes: Arik Tipton MD Section of Dermatology [facility] documented in this encounter Plan of Treatment Upcoming Encounters Date Type Specialty Care Team Description 03/26/2022 Office Visit Cardiology Vitaliy Nobles MD [facility] DR TADEO [place], [place] [address] (Wo rk) 06/10/2022 Office Visit Dermatology Laura Scherer MD [facility] DR TEJA GR-DERMAT [facility] [place], [place] [address] (Wo rk) documented as of this encounter Visit Diagnoses Diagnosis Psoriasis - Primary Other psoriasis Personal history of other malignant neop lasm of skin documented in this encounter Care Teams Acid Mixer Relationship Specialty Start Date End Date Brody Berrios MD PCP - General 09/22/11 10/03/[address] [place] [address] [address] [place] [address] documented as of this encounter
--- OUTSIDE RECORDS SUMMARY | 2022-03-04 15:00 | XMS_ITS | Encounter Summary ---
:1945 Author Organization [place] [address] Care Team Providers Name Role Phone MiyaAngela STACIE Primary Care Provider Reason for Visit Reason Comments Post Op voiding trial Encounter Details Date Type Department Care Team Description 04/05/2013 Office Visit Urology at [facility] Darryl Egan, UTI ([facility] MD tract infection) [facility] (Primary Dx) [place] [address] UROLOGY DEPT [phone] [place], [place] [address] Social History Tobacco Use Types [...] Nobles MD [facility] ER CARDIOLOGY [place], [place] [address] (Wo rk) 06/10/2022 Office Visit Dermatology Laura Scherer MD [facility] ER DR TEJA GR-DERMAT OGY [place], [place] [address] (Wo rk) documented as of [...] [facility] Range Method Time Signature Urine Culture CERNER ? Patient Name: GREGORY HOANG ? Ordered By: DARRYL EGAN [facility] ? MR#: [id number] ?LOC: ??5B ? /Sex: ??1945 (68 years), [...] S ? Patient: GREGORY HOANG ? MR#: [id number] ? FOOTNOTES ? (1) ? This organism [...] Organization Address City/State/[place] [address] [facility] documented in this encounter Visit Diagnoses Diagnosis UTI (lower urinary tract infection) - Pr imary Urinary tract infection, site not specif ied documented in this encounter Care Teams Bacteriology Teacher Relationship Specialty Start Date End Date Angela Holliday APRN PCP - General 01/25/13 04/15/[address] [place] [address] documented as of this encounter
--- OUTSIDE RECORDS SUMMARY | 2022-03-04 15:00 | XMS_ITS | Encounter Summary ---
:1945 Author Organization [facility] [place] [address] Care Team Providers Name Role Phone Adi Costello MD Primary Care Provider Reason for Visit Reason Comments Annual Exam ckeck his groin and melanoma follow-up Encounter Details Date Type Department Care Team Description 11/21/2010 Follow-Up Dermatology Arik Tipton Melanoma (Primary Dx) [facility] MD Jorge [place] [phone] DERMATOLOGY DEPT . 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 His only complaints are leg cramps, [...] changes: Arik Tipton MD Section of Dermatology [facility] documented in this encounter Plan of Treatment Upcoming Encounters Date Type Specialty Care Team Description 03/26/2022 Office Visit Cardiology Vitaliy Nobles MD [facility] DR TADEO [place], [place] [address] (Wo rk) 06/10/2022 Office Visit Dermatology Laura Scherer MD [facility] DR TEJA GR-DERMAT OGY [place], [place] [address] (Wo rk) documented as of this encounter Visit Diagnoses Diagnosis Melanoma - Primary Melanoma of skin, site unspecified documented in this encounter Care Teams Casting And Curing Operator Relationship Specialty Start Date End Date Adi Costello MD PCP - General 06/17/10 09/21/[address] [place] [address] documented as of this encounter
--- OUTSIDE RECORDS SUMMARY | 2022-03-04 15:00 | XMS_ITS | Encounter Summary ---
:1945 Author Organization [place] [address] Care Team Providers Name Role Phone MiyaLokeshAngela STACIE Primary Care Provider Reason for Visit Reason Onset Date Comments Post-op Problem 04/05/2013 voiding trial Encounter Details Date Type Department Care Team Description 04/05/2013 Telephone Urology at [facility] Blade Smith, Post-op Problem [facility] (voiding trial) [place] [address] UROLOGY DEPT [place] [phone] (Wo rk) Social History Tobacco Use Types [...] Nobles MD [facility] [address] [address] (Wo rk) 06/10/2022 Office Visit Dermatology Laura Scherer MD [facility] [address] TEJA GR-DERMAT [place] [address] (Wo rk) documented as of this encounter Visit Diagnoses Not on filedocumented in this encounter Care Teams Refinery Operator Visbreaking Relationship Specialty Start Date End Date Angela Holliday APRN PCP - General 01/25/13 04/15/[address] [place] [address] documented as of this encounter
--- OUTSIDE RECORDS SUMMARY | 2022-03-04 15:00 | XMS_ITS | Encounter Summary ---
:1945 Author Organization [place] [address] Care Team Providers Name Role Phone Angela Holliday APRN Primary Care Provider Reason for Visit Reason Comments Other Encounter Details Date Type Department Care Team Description 08/01/2013 Telephone Dermatology at [facility] Rigoberto Garcia III, [address] [place] [address] [facility] [phone] TEJA MARIE-DERMAT [place], [place] [address] (Wo rk) Social History Tobacco [...] them. Component Value Surgical Pathology Final Report [facility] Provider: RIGOBERTO GARCIA III Pt. Name: DON HOANG Acc #: [id number] Pt. Col Date: 07/31/2013 /Sex: 1945,(68 years),Male Rec Date: 07/31/2013 LOC: [facility] SURGICAL PATHOLOGY ---Pathologic Diagnosis--- Skin, right [...] Nobles MD [facility] [address] [place], [place] [address] (Wo rk) 06/10/2022 Office Visit Dermatology Laura Scherer MD [facility] [address] TEJA MARIE-DERMAT [place], [place] [address] (Wo rk) documented as of this encounter Visit Diagnoses Not on filedocumented in this encounter Care Teams Curriculum Writer Relationship Specialty Start Date End Date Angela Holliday APRN PCP - General 01/25/13 04/15/[address] [place] [address] documented as of this encounter
--- OUTSIDE RECORDS SUMMARY | 2022-03-04 15:00 | XMS_ITS | Encounter Summary ---
:1945 Author Organization [facility] [place] [address] Care Team Providers Name Role Phone Angela Holliday APRN Primary Care Provider Reason for Visit Reason Comments Skin Check Encounter Details Date Type Department Care Team Description 07/31/2013 Follow-Up Dermatology at Rigoberto Forman eoplasm of unspecified nature of bone, soft tissue, and skin (Primary Dx); Abdelrahman HOOPER MD Seborrheic psoriasis- scalp and ingtergl uteal area; [address] [facility] Atypical [place] [address] [facility] [place], [place] [address] (Wo rk) Social History [...] encounter. Rigoberto Albarran MD Section of Dermatology [facility] documented in this encounter Plan of Treatment Upcoming Encounters Date Type Specialty Care Team Description 03/26/2022 Office Visit Cardiology Vitaliy Nobles MD [facility] DR TADEO [place], [place] [address] (Wo lissa) 06/10/2022 Office Visit Dermatology Laura Scherer MD [facility] DR TEJA GR-DERMAT OGY [place], [place] [address] (Mikayla alcaraz) Scheduled Orders Name [...] Value Ref Test Analysis Performed At [facility] gist Range Method Time Signature Surgical CERNER Pathology ? [facility] Report ? Provider: ?? RIGOBERTO ALBARRAN III Pt. Name: ?? GREGORY HOANG ?A ? Acc #: ?[id number] ? Pt. ? Col Date: ?? 07/31/2013 [...] 0.9 x 0.8 x 0.2 cm. ? [facility] ? Provider: ?? DEION III, RIGOBERTO Pt. Name: ?? GREGORY HOANG ?A ? Acc #: ?[id number] ? Pt. ? Col Date: ?? 07/31/2013 [...] [place] [facility] [place]/[place] [address] CERNER MILLENNIUM Specimen to [...] Performing Organization Address City/[facility] [place] [address] CERNER MILLENNIUM documented in this encounter Visit Diagnoses Diagnosis Neoplasm of unspecified nature of bone, soft tissue, and skin - Primary Seborrheic psoriasis- scalp and ingtergl uteal area Other psoriasis Atypical nevus of abdominal wall Benign neoplasm of skin of trunk, except scrotum documented in this encounter Care Teams Tattoo Identifier Relationship Specialty Start Date End Date Angela Holliday APRN PCP - General 01/25/13 04/15/[address] [place] [address] documented as of this encounter
--- OUTSIDE RECORDS SUMMARY | 2022-03-04 15:00 | XMS_ITS | Encounter Summary ---
:1945 Author Organization [facility] [place] [address] Care Team Providers Name Role Phone MiyaAngela STACIE Primary Care Provider Reason for Visit Reason Comments Urinary Retention Encounter Details Date Type Department Care Team Description 05/16/2013 Follow-Up Urology at [facility] Blade Smith, Retention of urine [facility] (Primary Dx) [place] [address] UROLOGY DEPT [place] [phone] (Wo rk) Social History Tobacco Use Types [...] MD [facility] [address] TADEO [place], [place] [address] (Wo rk) 06/10/2022 Office Visit Dermatology Laura Scherer MD 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
--- OUTSIDE RECORDS SUMMARY | 2022-03-04 15:00 | XMS_ITS | Encounter Summary ---
:1945 Author Organization [facility] [place] [address] Care Team Providers Name Role Phone NeilSom conner STACIE Primary Care Provider Reason for Visit Reason Comments Establish Care OBST GOITER Encounter Details Date Type Department Care Team Description 01/25/2013 Office Visit General Surgery at Manny Mcknight er colloid, toxic, [facility] MD Eliseo nodular (Primary Dx) [facility] [place] GENERAL SURGERY [id number] [place], [place] [id number] [phone] Social History Tobacco Use Types Packs/Day Years [...] the thyroid gland were obtained using a SonoSiCiplex MicroMaxx and an HFL38/13-6 broadband linear array [...] on physical exam. ROS: No H/O asthma, ID, stroke, pulmonary embolus or phlebitis. Comprehensive review [...] Vitaliy Nobles MD [facility] CARDIOLOGY [place], [place] [address] (Wo rk) 06/10/2022 Office Visit Dermatology Laura Scherer MD [facility] DR TEJA GR-DERMAT [place]LOGY [place], [place] [address] (Wo rk) documented as of [...] 406 ms MUSE SYSTEM (Bezet) Calculated P [place] 52 degrees MUSE SYSTEM Calculated R [place] 0 degrees MUSE SYSTEM Calculated T [place] 40 degrees MUSE SYSTEM INTERPRETATION Normal sinus [...] storm documented in this encounter Care Teams Oil Pit Attendant Relationship Specialty Start Date End Date Som Holliday APRN PCP - General 01/25/13 04/15/[address] [place] [address] documented as of this encounter
--- OUTSIDE RECORDS SUMMARY | 2022-03-04 15:00 | XMS_ITS | Encounter Summary ---
:1945 Author Organization [facility] [place] [address] Care Team Providers Name Role Phone Angela Holliday STACIE Primary Care Provider Encounter Details Date Type Department Care Team Description 04/04/2013 Telephone Urology at [facility] Parker Sanchez MD [facility] [place] [address] UROLOGY DEPT [phone] [place], [place] 0375 (Wo rk) Social History Tobacco [...] Nobles MD [facility] ER DR CARLYLE [place] 0[address] (Wo rk) 06/10/2022 Office Visit Dermatology Laura Scherer MD [facility] ER DR LEZAMA RD-DERMAT [place], [place] 0[address] (Wo rk) documented as of this encounter Visit Diagnoses Not on filedocumented in this encounter Care Teams Development Consultant Relationship Specialty Start Date End Date Angela Holliday APRN PCP - General 01/25/13 04/15/[address] [place] [address] documented as of this encounter
--- OUTSIDE RECORDS SUMMARY | 2022-03-04 15:00 | XMS_ITS | Encounter Summary ---
:1945 Author Organization [facility] [place] [address] Care Team Providers Name Role Phone Angela Holliday APRN Primary Care Provider Encounter Details Date Type Department Care Team Description 01/25/2013 Clinical [place] [address] Social History Tobacco Use Types Packs/Day [...] Nobles MD [facility] CARDIOLOGY [place], [place] [address] (Wo rk) 06/10/2022 Office Visit Dermatology Laura Scherer MD [facility] DR TEJA RG-DERMAT [facility] [place], [place] [address] (Wo rk) documented as of this encounter Visit Diagnoses Not on filedocumented in this encounter Care Teams Hat Finishing Materials Preparer Relationship Specialty Start Date End Date Angela Holliday APRN PCP - General 01/25/13 04/15/[address] [place] [address] documented as of this encounter
--- OUTSIDE RECORDS SUMMARY | 2022-03-04 15:00 | XMS_ITS | Encounter Summary ---
:1945 Author Organization [facility] Address [facility] [place] [address] Care Team Providers Name Role Phone Unknown Primary Care Provider Unavailable Reason for Visit Reason Comments Skin Check Encounter Details Date Type Department Care Team Description 10/04/2012 Follow-Up Dermatology at Rigoberto Forman soriasis (Primary Dx); Abdelrahman HOOPER MD Neoplasm of unspecified nature of bone, soft tissue, and skin; [address] [facility] Skin lesion of chest wall; [place] [address] Seborrheic psoriasis- scalp and ingtergl uteal area [phone] [facility]-DERMATOLGY [place], [place] 0[address] (Wo rk) Social History [...] himself from the sun. Note initiated by: .Ginyn Christiansen LPN Routed to physician for review and changes: Rigoberto Albarran MD Section of Dermatology [facility] documented in this encounter Plan of Treatment Upcoming Encounters Date Type Specialty Care Team Description 03/26/2022 Office Visit Cardiology Vitaliy Nobles MD [facility] DR TADEO [place], [place] [address] (Wo rk) 06/10/2022 Office Visit Dermatology Laura Scherer MD [facility] DR TEJA GR-DERMAT [place], [place] 0[address] (Wo rk) documented as [...] Component Value Ref Test Analysis Performed At [facility] gist Range Method Time Signature Surgical CERNER Pathology ? [facility] Report ? Provider: ?? RIGOBERTO ALBARRAN III Pt. Name: ?? NATALYA , DON E ?A ? Acc #: ?[id number] ? Pt. ? Col Date: ?? 3 [...] City/[facility]/[place] [address] CERNER MILLENNIUM Specimen to [...] City/[facility]/[place] [address] CERNER MILLENNIUM documented in this encounter Visit Diagnoses Diagnosis Psoriasis - Primary Other psoriasis Neoplasm of unspecified nature of bone, soft tissue, and skin Skin lesion of chest wall Unspecified disorder of skin and subcuta neous tissue Seborrheic psoriasis- scalp and ingtergl uteal area Other psoriasis documented in this encounter Care Teams Spinning Lathe Operator Automatic Relationship Specialty Start Date End Date Unknown PCP - General 10/04/12 01/24/13 None documented as of this encounter
--- OUTSIDE RECORDS SUMMARY | 2022-03-04 15:00 | XMS_ITS | Encounter Summary ---
:1945 Author Organization [facility] [address] Care Team Providers Name Role Phone Angela Holliday APRN Primary Care Provider Encounter Details Date Type Department Care Team Description 03/30/2013 Telephone General Surgery at [facility] Cliff Nevarez, [place] [address] Social History Tobacco Use Types Packs/Day [...] MD [facility] DR TADEO [place], [place] [address] (Wo rk) 06/10/2022 Office Visit Dermatology Laura Scherer MD [facility] DR TEJA GR-DERMAT OLOGY [place], [place] 0[address] (Wo rk) documented as of this encounter Visit Diagnoses Not on filedocumented in this encounter Care Teams It Risk And Assurance Senior Manager Relationship Specialty Start Date End Date Angela Holliday APRN PCP - General 01/25/13 04/15/[address] [place] [address] documented as of this encounter
--- OUTSIDE RECORDS SUMMARY | 2022-03-04 15:00 | XMS_ITS | Encounter Summary ---
:1945 Author Organization [facility] [place] [address] Care Team Providers Name Role Phone Angela Sotelo APRN Primary Care Provider Encounter Details Date Type Department Care Team Description 01/16/2014 Surgery Gastroenterology at [facility] Nohemi Jaimes, COLONOSCOPY, [facility] Jorge mcnamara MD POLYPE[place], [place] [address] [facility] LESION BY SNARE ([facility] [phone] DR Cintron) GASTROENTEROLOGY DEPT. [place], [place] [address] Social History Tobacco Use [...] you need to be checked. [facility] [phone] 8a-5p Same Day Endo [phone] 7a-8p Otherwise contact [phone] and ask to speak to the cullet trucker application coordinator Follow up care is a shelton part [...] 2:40 PM EDT Op Note - Nohemi Jiames MD - 01/16/2014 9:49 AM EDT [facility] Operative Note Patient Name: Gregory Fatima : [id number] MR#: [id number] Case Date: 01/16/2014 Surgeon: Surgeon(s) and Role: * Nohemi Jaimes MD - Primary Preoperative diagnosis: 5 yr surv. Full procedure note is documented under the Procedure section of eDH. documented in this encounter Plan of Treatment Upcoming Encounters Date Type Specialty Care Team Description 03/26/2022 Office Visit Cardiology Vitaliy Nobles MD [facility] ER DR TADEO [place], [place] [address] (Wo rk) 06/10/2022 Office Visit Dermatology Laura Scherer MD [facility] ER DR TEJA GR-DERMAT OLOGY [place], [place] [address] (Wo rk) documented as [...] Surgical Pathology Report (01/16/2014 9:53 AM EDT) [facility] Method Time Signature Surgical CERNER Pathology ? [facility] Report ? Provider: ?? SHREE, NOHEMI Gnozalez ?Pt. Name: ?? SURINDER ALEGRE, GREGORY Mccollum ? Acc #: ?[id number] ?Pt. MRN: ?[id number] ? Col Date: ?? 4 ? /Sex: [...] Address City/State/ZIP Code Phon e Number [address] CERNER MILLENNIUM Specimen to [...] Address City/[facility]/[place] [address] CERNER MILLENNIUM Specimen to [...] Organization Address City/State/[place] [address] CERNER MILLENNIUM COLONOSCOPY (01/16/2014 7:25 AM EDT) [facility] Method Time Signature COLONOSCOPY [facility] Endoscopy Patient Name: Gregory Fatima ? Procedure Date: 01/16/2014 7:25 AM ? N: [id number] ? Date of : 1945 ? Age: 68 ? Order #: [id number] ? Procedure: ? Colonoscopy Indications: ? High [...] Laterality 01/16/2014 7:25 AM EDT Angela Sotelo MACHINE STRIPPER CUTTER GENERAL SURGICAL ORDERABLES Performing Organization Address [...] Routine documented in this encounter Care Teams Software Development Leader Relationship Specialty Start Date End Date Angela Sotelo APRN PCP - General 01/25/13 04/15/[address] [place] [address] documented as of this encounter
--- OUTSIDE RECORDS SUMMARY | 2022-03-04 15:00 | XMS_ITS | Encounter Summary ---
:1945 Author Organization [facility] [place] [address] Care Team Providers Name Role Phone Lovely Vicente MD Primary Care Provider Reason for Visit Reason Comments Medication Refill Encounter Details Date Type Department Care Team Description 05/10/2015 Refill Endocrinology at [facility] Rosalind Covarrubias, [facility] [place] [address] [facility] [phone] ENDOCRINOLOGY [place], [place] [address] (Wo rk) Social History [...] MD [facility] ER DR TADEO [place], [place] [address] (Wo rk) 06/10/2022 Office Visit Dermatology Laura Scherer MD [facility] ER DR TEJA GR-DERMAT [place], [place] [address] (Wo rk) documented as of this encounter Visit Diagnoses Not on filedocumented in this encounter Care Teams Cardiovascular Sonographer Relationship Specialty Start Date End Date Lovely Vicente MD PCP - General 04/16/[address] [place] [address] documented as of this encounter
--- OUTSIDE RECORDS SUMMARY | 2022-03-04 15:00 | XMS_ITS | Encounter Summary ---
:1945 Author Organization [facility] [place] [address] Care Team Providers Name Role Phone Miya Angela STACIE Primary Care Provider Encounter Details Date Type Department Care Team Description 04/24/2013 Telephone Urology at [facility] Zhen Bowman MD [facility]3] [place] [address] UROLOGY DEPT [phone] [place], [place] [address] (Wo rk) Social History Tobacco [...] [facility] [address] TADEO [place], [place] [address] (Wo rk) 06/10/2022 Office Visit Dermatology Laura Scherer MD [facility] DR TEJA GR-DERMAT OGY [place], [place] [address] (Wo rk) documented as of this encounter Visit Diagnoses Not on filedocumented in this encounter Care Teams Road Service Locksmith Relationship Specialty Start Date End Date Angela Holliday APRN PCP - General 01/25/13 04/15/[address] [place] [address] documented as of this encounter
--- OUTSIDE RECORDS SUMMARY | 2022-03-04 15:00 | XMS_ITS | Encounter Summary ---
:1945 [place] [address] Care Team Providers Name Role Phone Holley Hollidayica STACIE Primary Care Provider Encounter Details Date Type Department Care Team Description 03/28/2013 - [facility] 03/29/2013 Barbara Gomes MD Dx) [facility] DR Siddiqui [place] [address] [phone] Social History Tobacco Use Types Packs/Day Years [...] please call the General Surgery nurse at [phone], since this may mean that you need morecalcium. Follow-up Appointment: Will be scheduled with Dr. Mcknight in 6 weeks Date and time as well as any required labs will be mailed to you Please call [phone] to confirm date and time of your [...] by calcium supplementation. Phone number for questions: [phone] before 5 PM weekdays [phone] after 5 PM and on weekends/holidays Please follow up with Urology as per their recommendations for Bob removal AttachmentsThe following attachments cannot be sent through Care Everywhere. THYROIDECTOMY: WHAT TO EXPECT AT HOME (PRYDEINIG)URINARY CATHETER CARE: AFTER YOUR VISIT (PRYDEINIG)documented in this encounter Medications at Time of [...] is a 68 y.o. male presents to [facility] today for total thyroidectomy. See [...] Willams MD - 03/28/2013 3:43 PM EDT [facility] Operative Note Patient Name: Gregory Fatima : [id number] MR#: [id number] Case Date: 03/28/2013 Surgeon: Surgeon(s) and Role: [...] patient was extubated and taken to the [facility] in stable condition. At the [...] Operative Note Patient Name: Gregory Fatima : [id number] MR#: [id number] Case Date: 03/28/2013 Surgeon: Surgeon(s) and Role: [...] Nobles MD [facility] CARDIOLOGY [place], [place] [address] (Wo rk) 06/10/2022 Office Visit Dermatology Laura Scherer MD [facility] DR TEJA GR-DERMAT [facility] [place] [place] [address] (Wo rk) documented as [...] Address City/State/ZIP Code Phon e Number [address] CERNER MILLENNIUM (ABNORMAL) POCT [...] [facility]/ZIP [place] [address] CERNER MILLENNIUM (ABNORMAL) POCT [...] Address City/State/ZIP Code Phon e Number [address] CERNER MILLENNIUM (ABNORMAL) POCT [...] [facility]/ZIP Code Phon e Number [address] CERNER MILLENNIUM (ABNORMAL) POCT [...] Address City/State/ZIP Code Phon e Number [address] CERNER MILLENNIUM (ABNORMAL) POCT [...] Organization Address City/State/ZIP [place] [address] CERNER MILLENNIUM (ABNORMAL) POCT [...] [facility]/ZIP Code Phon e Number [address] CERNER MILLENNIUM (ABNORMAL) POCT [...] Organization Address City/State/[place] [address] CERNER MILLENNIUM Specimen to Pathology (surgical or derm) (03/28/2013 12:14 PM EDT) Specimen Anatomical Collection Method Collection Time Receive d Time (Source) Location / / Volume Laterality AP Specimen 03/28/2013 12:14 03/28/2013 PM EDT 12:14 PM EDT Narrative [facility] - 03/28/2013 12:14 PM EDT Specimen requisition ordered. ??Separate Pathology report to follow Mesha Mcknight MD PATHOLOGY/CYTOLOGY ORDERABLE S Performing Organization Address City/State/ZIP [place] [address] [facility] Pathology Addendum Report (03/28/2013 12:03 PM EDT) Component Value Ref Test Analysis Performed At [facility] gist Range Method Time Signature Addendum [facility] Report ? [facility] ? Provider: ?? MESHA MCKNIGHT Pt. Name: ?? SHERIF FATIMARY Veda ? Acc #: ?[id number] ?Pt. MRN: ?[id number] ? Col Date: ?? 03/28/2013 ?/Sex: ?1945,(68 [...] MD PATHOLOGY/CYTOLOGY ORDERABLE S Performing Organization Address [facility]/State/ZIP [place] [address] [facility] Surgical Pathology Report (03/28/2013 12:03 PM EDT) Component Value Ref Test Analysis Performed At [facility] gist Range Method Time Signature Surgical [facility] Pathology ? [facility] Report ? Provider: ?? MESHA MCKNIGHT Pt. Name: ?? GREGORY FATIMA ? Acc #: ?[id number] ?Pt. MRN: ?[id number] ? Col Date: ?? 03/28/2013 ?/Sex: ?1945,(68 [...] areas of hemorrhage and ? calcifications. ? [facility] ? Provider: ?? MESHA MCKNIGHT Pt. Name: ?? GREGORY FATIMA ? Acc #: ?[id number] ?Pt. MRN: ?[id number] ? Col Date: ?? 03/28/2013 ?/Sex: ?1945,(68 years),Male ? Rec Date: ?? 03/28/2013 ?LOC: ?[facility] ? SURGICAL PATHOLOGY ? SECTIONS/PROCESSING: Java Solutions Architect sections are subm itted. (R6) ? B [...] MD PATHOLOGY/CYTOLOGY ORDERABLE S Performing Organization Address [facility]/State/ZIP Code Phon e Number [place] [id number] [address]OS[address] CERNER MILLENNIUM Frozen Section Report (03/28/2013 12:03 PM EDT) Component Value Ref Test Analysis Performed At [facility] Range Method Time Signature Frozen CERNER Section ? [facility] Report ? Provider: ?? MESHA MCKNIGHT Pt. Name: ?? GREGORY FATIMA ? Acc #: ?[id number] ?Pt. MRN: ?[id number] ? Col Date: ?? 03/28/2013 ?/Sex: ?1945,(68 years),Male ? Rec Date: ?? 03/28/2013 ?LOC: ?[facility] ? FROZEN SECTION REPORT ? ---Frozen Section Report--- ? Part A - Intraoperati ve gross consultation was performed. ??The case was ? discussed by phone with Dr. Mcknight, and no frozen ? section was performed. ? 03/31/13 ??Verified by: ??César STRANGE, Ruben Yusuf, [facility] gist ? The attending [facility] gist whose electronic signature appears on [...] Organization Address City/State/ZIP [place] [address] [facility] M[facility]ITAL[facility] POCT Glucose (03/28/2013 12:00 PM EDT) P athologist Signature POC Glucose 134 60 - 199 CERNER mg/dL [facility] Comment: Supplemental ranges: <110 mg/dL before meals <200 mg/dL all other times of the day Specimen Anatomical Collection Method Collection Time Receive d Time (Source) Location / / Volume Laterality Blood specimen 03/28/2013 12:00 3 (specimen) PM EDT 12:00 PM EDT Mesha Mcknight MD POINT OF CARE TEST ORDERABLE S Performing Organization Address City/[facility]/ZIP [place] [address] [facility] Specimen to Pathology (surgical or derm) (03/28/2013 11:58 AM EDT) Specimen Anatomical Collection Method Collection Time Receive d Time (Source) Location / / Volume Laterality AP Specimen 03/28/2013 11:58 03/28/2013 AM EDT 11:58 AM EDT Narrative [facility] M[facility] - 03/28/2013 11:58 AM EDT Specimen requisition ordered. ??Separate Pathology report to follow Mesha Mcknight MD PATHOLOGY/CYTOLOGY ORDERABLE S Performing Organization Address City/[facility]/ZIP [place] [address] [facility] MILL[facility]ITAL[facility] Antibody screen (03/28/2013 9:37 AM EDT) Analysis Performed At Patho logist Time Signature Ab Screen Negative [facility] Expires at [id number] [facility] 2358 on: MILLENNIUM Specimen Anatomical Collection Method Collection Time Receive d Time (Source) Location / / Volume Laterality Blood specimen 03/28/2013 9:37 AM 013 9:37 (specimen) EDT AM EDT Resulting Agency Comment Spec In Lab Mesha Mcknight MD BLOOD BANK ORDERABLES Performing Organization Address City/State/ZIP Code Phon e Number [place] [id number] [facility] [address] CERNER MILLENNIUM ABO/Rh Typing [...] Address City/State/ZIP Code Phon e Number [address] CERNER MILLENNIUM Differential, Automated [...] Organization Address City/State/[place] [address] CERNER MILLENNIUM (ABNORMAL) Basic [...] intervals supplied above were not validated at [facility]. Results from pediatri c patients should be [...] Mcknight MD CHEMISTRY ORDERABLES Performing Organization Address City/[facility]/ZIP [place] [address] CERNER MILLENNIUM (ABNORMAL) CBC [...] Organization Address City/State/ZIP [place] [address] CERKERI CARVALHOIUM POCT Glucose (03/28/2013 9:17 AM EDT) P athologist Signature POC Glucose 108 60 - 199 CERNER mg/dL [facility] Comment: Supplemental ranges: <110 mg/dL before meals <200 mg/dL all other times of the day Specimen Anatomical Collection Method Collection Time Receive d Time (Source) Location / / Volume Laterality Blood specimen 03/28/2013 9:17 AM 013 9:17 (specimen) EDT AM EDT Mesha Mcknight MD POINT OF CARE TEST ORDERABLE S Performing Organization Address City/State/ZIP Code Phon e Number [address] [facility] Specimen to Pathology (surgical or derm) (03/28/2013 8:55 AM EDT) Specimen Anatomical Collection Method Collection Time Receive d Time (Source) Location / / Volume Laterality AP Specimen 03/28/2013 8:55 AM 3 8:54 EDT AM EDT Narrative [facility] - 03/28/2013 8:55 AM E DT Specimen requisition ordered. ??Separate Pathology report to follow Mesha Mcknight MD PATHOLOGY/CYTOLOGY ORDERABLE S Performing Organization Address City/State/ZIP Code Phon e Number [address] [facility] documented in this encounter Visit Diagnoses [...] override documented in this encounter Care Teams Smoking Pipe Maker Relationship Specialty Start Date End Date Angela Holliday APRN PCP - General 01/25/13 04/15/15 [address] [place] [address] documented as of this encounter
--- OUTSIDE RECORDS SUMMARY | 2022-03-04 15:00 | XMS_ITS | Encounter Summary ---
:1945 Author Organization [facility] [address] Care Team Providers Name Role Phone MiyaLokeshAngela STACIE Primary Care Provider Encounter Details Date Type Department Care Team Description 04/04/2013 Orders Only General Surgery at Manny Mcknight thyroid [facility] MD Eliseo carcinoma (Primary Dx) [facility] [place] [address] GENERAL SURGERY [phone] [place], [place] [address] Social History Tobacco Use [...] Nobles MD [facility] ER CARDIOLOGY [place], [place] [address] (Wo rk) 06/10/2022 Office Visit Dermatology Laura Scherer MD [facility] DR TEJA GR-DERMAT OLOGY [place], [place] [address] (Wo rk) documented as of this encounter Visit Diagnoses Diagnosis Papillary thyroid carcinoma - Primary Malignant neoplasm of thyroid gland documented in this encounter Care Teams Bottom Bleacher Relationship Specialty Start Date End Date Angela Holliday APRN PCP - General 01/25/13 04/15/[address] [place] [address] documented as of this encounter
--- OUTSIDE RECORDS SUMMARY | 2022-03-04 15:00 | XMS_ITS | Encounter Summary ---
:1945 Author Organization [facility] [place] [address] Care Team Providers Name Role Phone Angela Holliday APRN Primary Care Provider Encounter Details Date Type Department Care Team Description 04/05/2013 [place] [address] Social History Tobacco Use Types Packs/Day [...] MD [facility] ER [address] TADEO [place], [place] [address] (Wo rk) 06/10/2022 Office Visit Dermatology Laura Scherer MD [facility] ER DR TEJA GR-DERMAT [facility] [place], [place] [address] (Wo rk) documented as of this encounter Visit Diagnoses Not on filedocumented in this encounter Care Teams Chicken And Fish Butcher Relationship Specialty Start Date End Date Angela Holliday APRN PCP - General 01/25/13 04/15/15 4 [place] [address] documented as of this encounter
--- OUTSIDE RECORDS SUMMARY | 2022-03-04 15:00 | XMS_ITS | Encounter Summary ---
:1945 Author Organization [facility] [place] [address] Care Team Providers Name Role Phone Angela Holliday APRN Primary Care Provider Encounter Details Date Type Department Care Team Description 03/15/2013 Telephone General Surgery at [facility] Maddison Key, [place] [address] Social History Tobacco Use Types Packs/Day [...] Nobles MD [facility] ER DR TADEO [place], [place] [address] (Wo rk) 06/10/2022 Office Visit Dermatology Laura Scherer MD [facility] DR TEJA GR-DERMAT [place], [place] [address] (Wo rk) documented as of this encounter Visit Diagnoses Not on filedocumented in this encounter Care Teams Store Clerk Checker Relationship Specialty Start Date End Date Angela Holliday APRN PCP - General 01/25/13 04/15/[address] [place] [address] documented as of this encounter
--- OUTSIDE RECORDS SUMMARY | 2022-03-04 15:00 | XMS_ITS | Encounter Summary ---
:1945 Author Organization [facility] [place] [address] Care Team Providers Name Role Phone Angela Holliday APRN Primary Care Provider Reason for Referral Surgical (Routine) - Closed Specialty Diagnoses / Procedures Referred By Contact Refer red To Contact General Surgery Diagnoses Elijah Villagomez MD Colacchio, Thomas A, MD [address] [place] [address] [place] [address] [place] [address] Phone: Fax: Referral ID Status Reason Start Date Expiration Date Visits V isits Requested Authorized [id number] Closed Specialty 01/25/2013 07/24/2013 1 1 Service Requested Reason for Visit Reason Comments Thyroid Problem Encounter Details Date Type Department Care Team Description 01/25/2013 Office Visit Endocrinology at [facility] Elijah Fuentes Goiter (Primary Dx) [facility] [address] [place] [address] [place] [address] [phone] Social History Tobacco Use Types Packs/Day Years [...] History 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 All other [...] the thyroid gland were obtained using a Soniwocaaxx and an HFL38/13-6 broadband linear array transducer. [...] MD [facility] [address] TADEO [place], [place] [address] (Wo rk) 06/10/2022 Office Visit Dermatology Laura Scherer MD [facility] DR TEJA GR-DERMAT [place], [place] [address] (Wo rk) Scheduled Referrals Name [...] Address City/State/ZIP [place] [address] CERNER MILLENNIUM documented in this encounter Visit Diagnoses Diagnosis Goiter - Primary Goiter, unspecified documented in this encounter Care Teams Range Manager Relationship Specialty Start Date End Date Angela Holliday APRN PCP - General 01/25/13 04/15/[address] [place] [address] documented as of this encounter
--- OUTSIDE RECORDS SUMMARY | 2022-03-04 15:00 | XMS_ITS | Encounter Summary ---
:1945 Author Organization [facility] [place] [address] Care Team Providers Name Role Phone Angela Holliday APRN Primary Care Provider Encounter Details Date Type Department Care Team Description 03/30/2013 Telephone General Surgery at [facility] Cliff Nevarez, [place] [address] Social History Tobacco Use Types Packs/Day [...] Visit Cardiology Vitaliy Nobles MD [facility] ER CARDIOLOGY [place], [place] [address] (Wo rk) 06/10/2022 Office Visit Dermatology Laura Scherer MD [facility] ER DR TEJA GR-DERMAT [place], [place] [address] (Wo rk) documented as of this encounter Visit Diagnoses Not on filedocumented in this encounter Care Teams Traveling Missionary Relationship Specialty Start Date End Date Angela Holliday APRN PCP - General 01/25/13 04/15/[address] [place] [address] documented as of this encounter
--- OUTSIDE RECORDS SUMMARY | 2022-03-04 15:00 | XMS_ITS | Encounter Summary ---
:1945 Author Organization [facility] [place] [address] Care Team Providers Name Role Phone Angela Holliday APRN Primary Care Provider Reason for Visit Reason Comments Benign Prostatic Hypertrophy Encounter Details Date Type Department Care Team Description 11/28/2013 Follow-Up Urology at [facility] Blade Smith, Urinary retention (Primary D x); [facility] BPH (benign prostatic hyperplasia) [place] [address] UROLOGY DEPT [place], [place] [address] (Wo rk) Social History Tobacco [...] Nobles MD [facility] CARDIOLOGY [place], [place] [address] (Wo rk) 06/10/2022 Office Visit Dermatology Laura Scherer MD [facility] DR TEJA GR-DERMAT [facility] [place], [place] [address] (Wo rk) documented as of [...] Address City/State/ZIP Code Phon [place] [address] [facility] documented in this encounter Visit Diagnoses Diagnosis Urinary retention - Primary Retention of urine, unspecified BPH (benign prostatic hyperplasia) Unspecified hyperplasia of prostate with out urinary obstruction and other lower urinary tract symptoms (LUTS) documented in this encounter Care Teams Planting Material Unloader Relationship Specialty Start Date End Date Angela Holliday APRN PCP - General 01/25/13 04/15/[address] [place] [address] documented as of this encounter
--- OUTSIDE RECORDS SUMMARY | 2022-03-04 15:00 | XMS_ITS | Encounter Summary ---
:1945 Author Organization [facility] [place] [address] Care Team Providers Name Role Phone Unknown Primary Care Provider Unavailable Reason for Visit Reason Comments Other Encounter Details Date Type Department Care Team Description 10/05/2012 Telephone Dermatology at [facility] Rigoberto Garcia III, [address] [place] [address] [facility] [phone] TEJA MARIE-DERMAT [place] [id number] (Wo rk) Social History Tobacco Use Types [...] Office Visit Cardiology Vitaliy Nobles MD [facility] ER DR TADEO [place], [place] [address] (Wo rk) 06/10/2022 Office Visit Dermatology Laura Scherer MD [facility] DR TEJA MARIE-DERMAT [place], [place] [address] (Wo rk) documented as of this encounter Visit Diagnoses Not on filedocumented in this encounter Care Teams Tin Flipper Relationship Specialty Start Date End Date Unknown PCP - General 10/04/12 01/24/13 None documented as of this encounter
--- OUTSIDE RECORDS SUMMARY | 2022-03-04 15:00 | XMS_ITS | Encounter Summary ---
:1945 Author Organization [place] [address] Care Team Providers Name Role Phone Angela Holliday APRN Primary Care Provider Encounter Details Date Type Department Care Team Description 04/30/2014 Orders Only Endocrinology at [facility] Albertina Palmer, Thyroid cancer [facility] Jorge Boyer MD (Primary Dx) [place] [address] [facility] [phone] CENTER ENDOCRINOLOGY DEPT [place], [place] [address] Social History Tobacco Use [...] Nobles MD [facility] CARDIOLOGY [place], [place] [address] (Wo rk) 06/10/2022 Office Visit Dermatology Laura Scherer MD [facility] DR TEJA GR-DERMAT [place], [place] [address] (Wo rk) documented as of this encounter Visit Diagnoses Diagnosis Thyroid cancer - Primary Malignant neoplasm of thyroid gland documented in this encounter Care Teams Account Planner Relationship Specialty Start Date End Date Angela Holliday APRN PCP - General 01/25/13 04/15/[address] [place] [address] documented as of this encounter
--- OUTSIDE RECORDS SUMMARY | 2022-03-04 15:00 | XMS_ITS | Encounter Summary ---
:1945 Author Organization [facility] [place] [address] Care Team Providers Name Role Phone Som Holliday APRN Primary Care Provider Encounter Details Date Type Department Care Team Description 04/11/2014 Procedure visit Gastroenterology at [facility] Esophageal reflux [facility] Luz Winchester RN (Primary Dx) [place] [address] Social History Tobacco Use Types Packs/Day Years Used Date Former Smoker Alcohol Use Standard Drinks/Week Comments No 0 (1 standard drink = 0.6 oz pure alcoho l) Sex Assigned at Date Recorded Not on file documented as of this encounter Progress Notes Adalid Can MD - 04/13/2014 3:43 PM EDT ESOPHAGEAL MANOMETRY Don Fatima Male, 69 yrs, 1945 PCP: SOM HOLLIDAY DAIRY TESTER: NONE STUDY DATE: 04/11/14 PROVIDER: Adalid [place], [place] ([id number]) INDICATION Reflux; preoperative evaluation. METHODS Stationary esophageal manometry was performed with the ufindads esophageal motility system utilizing the Polygram software [...] of the esophagus. Adalid Can, PhD, MD acid recovery operator, [facility] Section of Gastroenterology and Hepatology [facility] [place] [address] V: [phone] F: [phone] [facility]/gabriela CC/EC: PCP - staff msg copy 04/13/14 Henrique Taylor MD - fax copy 04/13/14 Luz Keller RN - 04/11/2014 8:14 AM EDT Esophageal manometry performed without difficulty and Was well tolerated. documented in this encounter Plan of Treatment Upcoming Encounters Date Type Specialty Care Team Description 03/26/2022 Office Visit Cardiology Vitaliy Nobles MD [facility] ER DR TADEO [place], [place] [address] (Wo rk) 06/10/2022 Office Visit Dermatology Laura Scherer MD [facility] DR TEJA GR-DERMAT [facility] [place], [place] [address] (Wo rk) documented as of this encounter Visit Diagnoses Diagnosis Esophageal reflux - Primary documented in this encounter Care Teams Director Of Safety And Security Relationship Specialty Start Date End Date Som Holliday APRN PCP - General 01/25/13 04/15/[address] [place] [address] documented as of this encounter
--- OUTSIDE RECORDS SUMMARY | 2022-03-04 15:00 | XMS_ITS | Encounter Summary ---
:1945 Author Organization [facility] [place] [address] Care Team Providers Name Role Phone MiyaLokeshAngela STACIE Primary Care Provider Encounter Details Date Type Department Care Team Description 01/16/2014 Hospital Encounter Gastroenterology at [facility] Nohemi Jaimes, [facility] [place] [address] [facility] [phone] [facility] [place], [place] [address] Social History Tobacco Use Types [...] you need to be checked. [facility] [phone] 8a-5p Same Day Endo [phone] 7a-8p Otherwise contact [phone] and ask to speak to the silvering department supervisor dictaphone operator Follow up care is a shelton part of your treatment and safety. Be sure to make and go to all appointments, and call your doctor if you are having problems. Discharge instructions reviewed with patient who expresses understanding Patient InstructionsButterNohemi jaureugi MD - 01/16/2014 9:49 AM EDT Please [...] Operative Note Patient Name: Gregory Fatima : [id number] MR#: [id number] Case Date: 01/16/2014 Surgeon: Surgeon(s) and Role: * Nohemi Jaimes MD - Primary Preoperative diagnosis: 5 yr surv. Full procedure note is documented under the Procedure section of eDH. documented in this encounter Plan of Treatment Upcoming Encounters Date Type Specialty Care Team Description 03/26/2022 Office Visit Cardiology Vitaliy Nobles MD [facility] DR TADEO [place], [place] [address] (Wo rk) 06/10/2022 Office Visit Dermatology Laura Scherer MD [facility] DR LEZ[address] RD-DERMAT [place], [place] [address] (Wo rk) documented as of [...] Surgical Pathology Report (01/16/2014 9:53 AM EDT) [facility] Method Time Signature Surgical CERNER Pathology ? [facility] Report ? Provider: ?? SHREE, NOHEMI Gonzalez ?Pt. Name: ?? SURINDER RT, GREGORY Mccollum ? Acc #: ?[id number] ?Pt. MRN: ?[id number] ? Col Date: ?? 4 ? /Sex: ?1945,(68 years),Male ? Rec Date: ?? 01/16/2014 ? LOC: ?4T ? SURGICAL PATHOLOGY ? ---Pathologic Diagnosis--- ? Endoscopic biopsies - ? A. Hyperplastic polyp and colonic mucosa within ada l limits. ? B. Tubular adenoma. ? CR-PX ? 01/17/14 ? AAS ? 01/17/14 Verified by: ? Soan Zapata MD ? Pathologist ? (Electronic Si [...] Address City/State/ZIP Code Phon e Number [address] [facility] Specimen to Pathology (surgical or derm) (01/16/2014 9:53 AM EDT) Specimen Anatomical Collection Method Collection Time Receive d Time (Source) Location / / Volume Laterality AP Specimen 01/16/2014 9:53 AM 4 9:53 EDT AM EDT Narrative CERNER MILLENNIUM - 01/16/2014 9:53 AM E DT Specimen requisition ordered. ??Separate Pathology report to follow Nohemi Jaimes MD PATHOLOGY/CYTOLOGY ORDERABLE S Performing Organization Address City/[facility]/ZIP Code Phon e Number [address] [facility] Specimen to Pathology (surgical or derm) (01/16/2014 9:53 AM EDT) Specimen Anatomical Collection Method Collection Time Receive d Time (Source) Location / / Volume Laterality AP Specimen 01/16/2014 9:53 AM 4 9:53 EDT AM EDT Narrative RAKESH VILLALOBOSENNIUM - 01/16/2014 9:53 AM E DT Specimen requisition ordered. ??Separate Pathology report to follow Nohemi Jaimes MD PATHOLOGY/CYTOLOGY ORDERABLE S Performing Organization Address [facility]/State/[place] [address] CERNER MILLENNIUM COLONOSCOPY (01/16/2014 7:25 AM EDT) [facility] Method Time Signature COLONOSCOPY [facility] Endoscopy Patient Name: Gregory Fatima ? Procedure Date: 01/16/2014 7:25 AM ? N: [id number] ? Date of : 1945 ? Age: 68 ? Order #: [id number] ? Procedure: ? Colonoscopy Indications: ? High [...] Routine documented in this encounter Care Teams Locker Attendant Relationship Specialty Start Date End Date Angela Sotelo APRN PCP - General 01/25/13 04/15/[address] [place] [address] documented as of this encounter
--- OUTSIDE RECORDS SUMMARY | 2022-03-04 15:00 | XMS_ITS | Encounter Summary ---
:1945 Author Organization [facility] [place] [address] Care Team Providers Name Role Phone Lovely Vicente MD Primary Care Provider Reason for Visit Reason Onset Date Comments Referral 10/30/2015 Urgent referral for mac on SIMÓN CHAVIS Encounter Details Date Type Department Care Team Description 10/30/2015 Telephone Ophthalmology at [facility] C Jayson Ruiz Referral (Urgent [facility] MD Grabiel referral for mac on [facility] DR SIMÓN [place]AVIS) [place] [address] OPHTHALMOLOGY DEPT. [phone] [place], [place] [address] (Wo rk) Social History [...] MD [facility] DR TADEO [place], [place] [address] (Wo rk) 06/10/2022 Office Visit Dermatology Laura Scherer MD [facility] DR TEJA GR-DERMAT [facility] [place], [place] [address] (Wo rk) documented as of this encounter Visit Diagnoses Not on filedocumented in this encounter Care Teams Validation Technician Relationship Specialty Start Date End Date Lovely Vicente MD PCP - General 04/16/[address] [facility] [address] [place] [address] documented as of this encounter
--- OUTSIDE RECORDS SUMMARY | 2022-03-04 15:00 | XMS_ITS | Encounter Summary ---
:1945 Author Organization [facility] [place] [address] Care Team Providers Name Role Phone MiyaAngela STACIE Primary Care Provider Reason for Visit Reason Onset Date Comments Advice Only 03/31/2013 Encounter Details Date Type Department Care Team Description 03/31/2013 Telephone Urology at [facility] Daniele Trejo III, MD Advice Only [facility] [address] [place] [id number] [phone] (Wo rk) Social History Tobacco Use Types [...] Office Visit Cardiology Vitaliy Nobles MD [facility] ER CARDIOLOGY [place], [place] [address] (Wo rk) 06/10/2022 Office Visit Dermatology Laura Scherer MD [facility] ER DR LEZAMA RD-DERMAT [place], [place] [address] (Wo rk) documented as of this encounter Visit Diagnoses Not on filedocumented in this encounter Care Teams Template Fitter Relationship Specialty Start Date End Date Angela Holliday APRN PCP - General 01/25/13 04/15/[address] [place] [address] documented as of this encounter
--- OUTSIDE RECORDS SUMMARY | 2022-03-04 15:00 | XMS_ITS | Encounter Summary ---
:1945 Author Organization [place] [address] Care Team Providers Name Role Phone Lovely Vicente MD Primary Care Provider Reason for Visit Reason Comments Thyroid Cancer Encounter Details Date Type Department Care Team Description 06/05/2015 Office Visit Endocrinology at [facility] Albertina Prescott, History of papillary [facility] MD Luz adenocarcinoma of [facility] thyroid (Primary Dx) [place] [address] CENTER [phone] [place] [address] Social History Tobacco Use Types Packs/Day Years [...] the thyroid gland were obtained using a [place] ultrasound machine. All measurements are given as AP x Transverse x Longitudinal Right Lobe: Absent Left Lobe: Absent Isthmus: Absent Central/Lateral neck: no morphologically abnormal lymph nodes. Impression: No sonographic evidence of recurrence. LUZ PRESCOTT MD Aeroplane Pilotcenterpuncher Section of Endocrinology [facility] Luz Prescott MD - 06/05/2015 8:21 AM [...] by [facility].(Non-Drug; Combo Route) route 2 times daily. Yes [...] --f/u in 1 year LUZ PRESCOTT MD Aeroplane Pilotcenterpuncher Section of Endocrinology [facility] documented in this encounter Miscellaneous Notes Addendum [...] [facility] DR [place]LE [place], [place] [address] (Wo rk) 06/10/2022 Office Visit Dermatology Laura Scherer MD [facility] DR TEJA GR-DERMAT [place], [place] [address] (Wo rk) documented as of [...] athologist Signature Thyroglobulin 0.6 <=54.9 CERNER ng/mL [facility] Comment: Interpret with caution. Tg levels [...] DALLAS et al. J Clin Endo Metab 1999;84:6593-1019). 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
--- OUTSIDE RECORDS SUMMARY | 2022-03-04 15:00 | XMS_ITS | Encounter Summary ---
:1945 Author Organization [facility] [place] [address] Care Team Providers Name Role Phone MiyaAngela STACIE Primary Care Provider Encounter Details Date Type Department Care Team Description 04/26/2014 Office Visit Endocrinology at [facility] Albertina Palmer, Papillary thyroid [facility] MD [place] [address] CENTER [phone] ENDOCRINOLOGY DEPT [place] [address] Social History Tobacco Use Types Packs/Day Years [...] on [place]. Rosalind Palmer Endocrine Staff Physician [facility] Rosalind Palmer MD - 04/26/2014 [...] one yr Rosalind Palmer Endocrine Staff Physician [facility] documented in this encounter Plan of Treatment Upcoming Encounters Date Type Specialty Care Team Description 03/26/2022 Office Visit Cardiology Vitaliy Nobles MD [facility] DR TADEO [place], [place] [address] (Wo rk) 06/10/2022 Office Visit Dermatology Laura Scherer MD [facility] DR TEJA GR-DERMAT [place], [place] [address] (Wo rk) documented as [...] BR et al. J Clin Endo Metab 1999;84:6036-8322). Assay performed using the DPC Immulite T [...] Organization Address City/State/[place] [address] CERNER MILLENNIUM (ABNORMAL) TSH [...] Organization Address City/State/ZIP [place] [address] [facility] documented in this encounter Visit Diagnoses Diagnosis Papillary thyroid carcinoma Malignant neoplasm of thyroid gland documented in this encounter Care Teams Owner Manager Relationship Specialty Start Date End Date Angela Holliday APRN PCP - General 01/25/13 04/15/[address] [place] [address] documented as of this encounter
--- OUTSIDE RECORDS SUMMARY | 2022-03-04 15:01 | XMS_ITS | Encounter Summary ---
:1945 Author Organization [facility] Address [address] [place] [address] Care Team Providers Name Role Phone Lovely Vicente MD Primary Care Provider Encounter Details Date Type Department Care Team Description 04/04/2021 Lab Requisition [facility] Outr Resulting Lab, Pathology & Laboratory Provider [facility] [address] [place] [address] Social History Tobacco Use Types Packs/Day Years [...] Pathologist Sig nature Salmonella PCR Negative Negative [facility] Shigella/Enteroinvasive Negative Negative [facility] HN LAB CAMPYLOBACTER PCR Negative Negative [facility] Shiga Toxin PCR Negative Negative [facility] Specimen Feces - Specimen from rectum (specimen) Performing Organization Address City/State/ZIP Code Phon e Number [facility] [address] [place] [address] SERVICES documented in this encounter Visit Diagnoses Not on filedocumented in this encounter Care Teams Electronic Integrated Systems Mechanic Relationship Specialty Start Date End Date Lovely Vicente MD PCP - General 07/13/14 documented as of this encounter
--- OUTSIDE RECORDS SUMMARY | 2022-03-04 15:01 | XMS_ITS | Encounter Summary ---
:1945 Author Organization [facility] Address [address] [place] [address] Care Team Providers Name Role Phone Lovely Vicente MD Primary Care Provider Encounter Details Date Type Department Care Team Description 08/11/2019 Lab Requisition [facility] Unknown, Provider, Pathology & Laboratory [facility] [address] [facility] [place] [address] Social History Tobacco Use Types Packs/Day Years [...] Pathologist Sig nature Salmonella PCR Negative Negative [facility] Shigella/Enteroinvasive Negative Negative [facility] R E. coli LABORATORY SERVICES HN LAB CAMPYLOBACTER PCR Negative Negative [facility] ER LABORATORY SERVICES Shiga Toxin PCR Negative Negative [facility] Specimen Feces - Specimen from rectum (specimen) Performing Organization Address City/State/ZIP Code Phon e Number [facility] [address] [place] [address] SERVICES documented in this encounter Visit Diagnoses Not on filedocumented in this encounter Care Teams Bowling Alley Refinisher Relationship Specialty Start Date End Date Lovely Vicente MD PCP - General 07/13/14 documented as of this encounter
--- OUTSIDE RECORDS SUMMARY | 2022-03-04 15:01 | XMS_ITS | Clinical Summary ---
:1945 Author Organization [facility] Address [address] [place] [id number] Care Team Providers Name Role Phone Lovely [...] i n the results section. COVID-19 TEST [facility] Today 01/27/2022 14:30 LAB PCR EDT COVID-19 TESTING Routine 01/27/2022 14:30 Results for this EDT procedure are i n the results section. from Last 3 Months Results PSA TOTAL, DIAGNOSTIC (02/20/2022 9:04 EDT) Pathologist Sig nature PSA 2.7 <=6.5 ng/mL [facility] LABORATOR Y SERVICES Specimen Blood - Venous blood (substance) Narrative [facility] - 02/20/2022 18:17 EDT NOTE: Serum PSA concentration should not be in terpreted as absolute evidence for the presence or absence of malignant disease. Assayed on Siemens ADVIA Centaur XPT usi ng chemiluminescent technology.??Values obtained by using different assay methods cannot be used interchangeably. Performing Organization Address City/State/ZIP Code Phon e Number [facility] [address] [place] [address] SERVICES COVID-19 TEST [facility] LAB PCR (01/27/2022 14:30 EDT) Specimen Swab Performing Organization Address City/[facility]/ZIP Code Phon e Number [facility] [address] [place] [address] SERVICES COVID-19 TESTING (01/27/2022 14:30 EDT) COVID-19 rt-PCR Negative Negative [facility] MEDICAL Result Comment: CENTER LABORATORY [...] performed using the meliton SARS-CoV-2 assay ([employer] on the Meliton 6800 System Performing Lab Meliton [address] [facility] Lab [facility] SERVICES Specimen Swab Performing Organization Address City/[facility]/ZIP Code Phon e Number [facility] [address] [place] [address] SERVICES from Last 3 Months Care Teams Website Optimization Strategist Relationship Specialty Start Date End Date Lovely Vicente MD PCP - General 07/13/14
--- OUTSIDE RECORDS SUMMARY | 2022-03-04 15:01 | XMS_ITS | Encounter Summary ---
:1945 Author Organization [facility] Address [address] [place] [address] Care Team Providers Name Role Phone Unknown, Provider Primary Care Provider Encounter Details Date Type Department Care Team Description 07/11/[address] [facility] Unknown, Provider, [facility] [address] [place] [address] [place] [address] (Work) [phone] Social History Tobacco Use Types Packs/Day Years Used Date Never Assessed Sex Assigned at Date Recorded Not on file documented as of this encounter Discharge Disposition Disposition Code Departure Means Destination Home or Self Skilled Nursing documented in this encounter Plan of Treatment Not on filedocumented as of this encounter Visit Diagnoses Not on filedocumented in this encounter Care Teams Environmental Laboratory Technician Relationship Specialty Start Date End Date Unknown, Provider, PCP - General 03/07/14 07/12/14 documented as of this encounter
--- OUTSIDE RECORDS SUMMARY | 2022-03-04 15:01 | XMS_ITS | Encounter Summary ---
:1945 Author Organization [facility] Address [address] [place] [address] Care Team Providers Name Role Phone Lovely Vicente MD Primary Care Provider Encounter Details Date Type Department Care Team Description 02/20/2022 Lab Requisition [facility] Outr Resulting Lab, Pathology & Laboratory Provider [facility] [address] [place] [address] Social History Tobacco Use Types Packs/Day Years [...] Pathologist Sig nature PSA 2.7 <=6.5 ng/mL [facility]ATOR Y SERVICES Specimen Blood - Venous blood (substance) Narrative [facility] - 02/20/2022 18:17 EDT NOTE: Serum PSA concentration should not be in terpreted as absolute evidence for the presence or absence of malignant disease. Assayed on [employer] Centaur XPT usi ng chemiluminescent technology.??Values obtained by using different assay methods cannot be used interchangeably. Performing Organization Address City/State/ZIP Code Phon e Number [facility] [address] [place] [address] SERVICES documented in this encounter Visit Diagnoses Not on filedocumented in this encounter Care Teams Car Rental Deliverer Relationship Specialty Start Date End Date Lovely Vicente MD PCP - General 07/13/14 documented as of this encounter
--- OUTSIDE RECORDS SUMMARY | 2022-03-04 15:01 | XMS_ITS | Encounter Summary ---
:[address] [facility] Address [address] [place] [address] Care Team Providers Name Role Phone Lovely Vicente MD Primary Care Provider Encounter Details Date Type Department Care Team Description 01/17/2021 Lab Requisition [facility] Outr Resulting Lab, Pathology & Laboratory Provider [facility] [address] [place] [address] Social History Tobacco Use Types Packs/Day Years [...] nature PSA 2.9 0.0 - 6.5 ng/mL [facility] LABORA TORY SERVICES Specimen Blood - Venous blood (substance) Narrative [facility] - 01/17/2021 17:46 EDT NOTE: Serum PSA concentration should not be in terpreted as absolute evidence for the presence or absence of malignant disease. Assayed on [employer] Centaur XPT usi ng chemiluminescent technology.??Values obtained by using different assay methods cannot be used interchangeably. Performing Organization Address City/State/ZIP Code Phon e Number [facility] [address] [place] [address] SERVICES documented in this encounter Visit Diagnoses Not on filedocumented in this encounter Care Teams Manager Managing Relationship Specialty Start Date End Date Lovely Vicente MD PCP - General 07/13/14 documented as of this encounter
--- OUTSIDE RECORDS SUMMARY | 2022-03-04 15:01 | XMS_ITS | Encounter Summary ---
:1945 Author Organization [facility] Address [address] [place] [address] Care Team Providers Name Role Phone Lovely Vicente MD Primary Care Provider Encounter Details Date Type Department Care Team Description 08/11/2019 Lab Requisition [facility] Unknown, Provider, Pathology & Laboratory [facility] [address] [facility] [place] [address] Social History Tobacco Use Types Packs/Day Years [...] (08/11/2019 14:35 EST) Giardia and Cryptosporidium Cryptosporidium [facility] Cryptosporidium Antigen Neg and Antigen Neg and CENTER Giardia Antigen Neg Giardia Antigen Neg LABORATORY SERVICES Specimen Feces - Specimen from rectum (specimen) Performing Organization Address City/State/ZIP Code Phon e Number [facility] [address] [place] [address] SERVICES documented in this encounter Visit Diagnoses Not on filedocumented in this encounter Care Teams Pest Control Technician Relationship Specialty Start Date End Date oLvely Vicente MD PCP - General 07/13/14 documented as of this encounter
--- OUTSIDE RECORDS SUMMARY | 2022-03-04 15:01 | XMS_ITS | Encounter Summary ---
:1945 Author Organization [facility] Address [address] [place] [address] Care Team Providers Name Role Phone Lovely Vicente MD Primary Care Provider Encounter Details Date Type Department Care Team Description 04/04/2021 [facility] Outr Resulting Lab, Pathology & Laboratory Provider [facility] [address] [place] [address] Social History Tobacco Use Types Packs/Day Years [...] (04/03/2021 12:15 EDT) Giardia and Cryptosporidium Cryptosporidium [facility] Cryptosporidium Antigen Neg and Antigen Neg and CENTER Giardia Antigen Neg Giardia Antigen Neg LABORATORY SERVICES Specimen Feces - Specimen from rectum (specimen) Performing Organization Address City/State/ZIP Code Phon e Number [facility] [address] [place] [address] SERVICES documented in this encounter Visit Diagnoses Not on filedocumented in this encounter Care Teams Architecture Faculty Member Relationship Specialty Start Date End Date Lovely Vicente MD PCP - General 07/13/14 documented as of this encounter
--- OUTSIDE RECORDS SUMMARY | 2022-03-04 15:01 | XMS_ITS | Encounter Summary ---
:1945 Author Organization [facility] Address [address] [place] [address] Care Team Providers Name Role Phone Unknown, Provider Primary Care Provider Encounter Details Date Type Department Care Team Description 03/05/2014 Results Only [facility] Eris Taylor MD Laboratory Services - [address] [place] [address] [place] [address] [phone] Social History Tobacco Use Types Packs/Day Years Used Date Never Assessed Sex Assigned at Date Recorded Not on file documented as of this encounter Plan of Treatment Not on filedocumented as of this encounter Procedures Procedure Name Priority Date/Time Associated Diagnosis Comme [facility] SURGICAL PATHOLOGY Routine 03/05/2014 10:34 Resul [...] ? DON HOANG ? Accession #: ? [id number] ? : ? 1945 (Age: 68) ??M [...] Organization Address City/State/ZIP Code Phon e Number [facility] [address] [place] [address] SERVICES [facility] [address] [place] [address] documented in this encounter Visit Diagnoses Not on filedocumented in this encounter Care Teams Visual Coordinator Relationship Specialty Start Date End Date Unknown, Provider, PCP - General 03/07/14 07/12/14 documented as of this encounter
--- OUTSIDE RECORDS SUMMARY | 2022-03-04 15:01 | XMS_ITS | Encounter Summary ---
:[address] [facility] Address [address] [place] [address] Care Team Providers Name Role Phone Unavailable Primary Care Provider Unavailable Encounter Details Date Type Department Care Team Description 03/05/2014 Hospital Encounter [facility] Unknown, Provider, [facility] [address] [facility] [phone] [place] [address] (Work) [phone] Social History Tobacco Use Types Packs/Day Years Used Date Never Assessed Sex Assigned at Date Recorded Not on file documented as of this encounter Discharge Disposition Disposition Code Departure Means Destination Home or Self Correction documented in this encounter Plan of Treatment Not on filedocumented as of this encounter Visit Diagnoses Not on filedocumented in this encounter
--- OUTSIDE RECORDS SUMMARY | 2022-03-06 08:05 | XMS_ITS | Encounter Summary ---
:1945 Author Organization [facility] Address [facility] [place] [address] Care Team Providers Name Role Phone Lovely Vicente MD Primary Care Provider Reason for Visit Auth/Cert Specialty Diagnoses / Procedures Referred By Contact Refer red To Contact Diagnoses ASCVD (arteriosclerotic cardiovascular disease) [I25.10] Vitaliy Nobles MD [facility] Procedures PRO PERC TRLUML CORONARY STENT W/ANGIO ONE ART/BRANCH CARDIAC CATHETERIZATION STENT PLACEMENT-SINGLE MAJOR CORONARY ARTERY OR BRANCH [facility] [place] [address] Referral ID Status Reason Start Date Expiration Date Visits Requ ested Visits Authorized [id number] 1 1 Encounter Details Date Type Department Care Team Description 01/30/2022 Surgery Balancer Scale Asa Coulter MD CARDIAC CATHETERIZATION [facility] [place] [address] [place] [address] [phone] (Wo rk) Social History Tobacco Use Types [...] and Clopidogrel. Please follow up with your piano machine operator in the next 4-6 weeks. [...] Murray, RN - 01/30/2022 4:54 PM EDT [facility] Short Stay Unit Discharge Note All [...] recent PCI presenting for staged PCI to [facility]. The pt states he has been [...] recent PCI presenting for staged PCI to [facility]. 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 I had referred him to cardiac rehab at [facility] last month per HF team. He was waiting until this intervention before starting the program. Reviewed managing angina /use of sl nitroglycerin. Given parameters for home exercise. 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 We discussed short walks several times per day. Will send [facility] his discharge summary from this admission. The patient should be contacted by the Program within 1- 2 weeks from discharge. Brief Op Note - Vitaliy Nobles MD - 01/30/2022 10:19 AM EDT Images from the original note were not included. Formerly [facility] [place] [address] CORONARY ANGIOGRAM AND PERCUTANEOUS CORONARY INTERVENTION REPORT Patient: Don Fatima : 1945 MR number: [id number] Date of Service: 01/30/2022 Armored Truck Driver: Vitaliy Nobles MD Fellow: KEYON Elizabeth INDICATION: [...] a long 2.0 x 26 mm [place] TUCKER stent and positioned it at the [...] using a 2.0 x 26 mm [place] TUCKER stent. This completes the revascularization ofall [...] Visit Cardiology Vitaliy Nobles MD [facility] MEDICAL [facility] [address] [place], [place] [address] ([facility]) 06/10/2022 Office Visit Dermatology Laura Scherer MD [facility] [address] [facility] [place], [place] [address] ([facility]) Scheduled Orders Name Type Priority Associated [...] P athologist Signature Neutrophils % 71.8 % [facility] Neutr Abs (ANC) 3.96 1.70 - [facility] 6.10 [facility] x10(3)/[facility] LABORATORY Lymphocytes % 16.3 % [facility] Lymphocytes Abs 0.9 0.9 - 3.2 [facility] x10(3)/[facility] LABORATORY Monocytes % 10.0 % [facility] Monocyte Abs 0.6 0.3 - 0.9 [facility] x10(3)/[facility] LABORATORY Eosinophils % 0.5 % [facility] Eosinophils Abs 0.0 0.0 - 0.4 [facility] LABORATORY Basophils % 0.5 % [facility] Basophils Abs 0.0 0.0 - 0.1 [facility] x10(3)/[facility] LABORATORY Immature Gran % 0.90 % [facility] Comment: Immature granulocytes(IG's)percentage an d absolute count will include metamyelocytes, myelocytes, and promyelo cytes. Blood smears from CBCs yielding IG's will be scanned manually for concor dance. If this scan disagrees with the automated IG or if promyelocytes are not ed, a manual differential will be performed. Melisa Gran Abs 0.05 (H) 0.00 - 0.04 x10(3)/[facility] LABORATORY Specimen Anatomical Collection Method Collection Time Receive d Time (Source) Location / / Volume Laterality Blood 01/30/2022 2:12 PM 2 2:37 EDT PM EDT Resulting Agency Comment Spec In Lab Eddi Elizabeth Jr., MD HEMATOLOGY ORDERABLES Performing Organization Address City/State/Z[place] [address] (ABNORMAL) Hemogram (01/30/2022 2:12 PM EDT) Analysis Performed At Patho logist Time Signature WBC 5.5 4.0 - 9.5 [facility] x10(3)/[facility] LABORATORY RBC 4.30 (L) 4.58 - [facility].54 [facility] x10(6)/[facility] LABORATORY Hemoglobin 12.7 (L) 13.7 - [facility] g/dL [facility] Hematocrit 39.4 (L) 40.5 - [facility] 48.5 % [facility] MCV 91.6 82.9 - [facility] 93.1 fL [facility] MCH 29.5 27.5 - [facility] 32.1 pg [facility] MCHC 32.2 32.0 - [facility] 35.7 g/dL [facility] Platelets 172 145 - 357 [facility] x10(3)/[facility] LABORATORY RDWSD 54.5 (H) 36.0 - [facility] 45.0 [facility] LABORATORY RDWCV 16.4 (H) 11.4 - [facility] 13.8 % [facility] LABORATORY MPV 9.2 7.6 - 12.9 [facility] LABORATORY nRBC % Auto 0.0 % [facility] nRBC Abs Auto 0.000 0.000 - [facility] 0.000 [facility] x10(3)/[facility] LABORATORY Specimen Anatomical Collection Method Collection Time Receive d Time (Source) Location / / Volume Laterality Blood 01/30/2022 2:12 PM 2 2:37 EDT PM EDT Resulting Agency Comment Spec In Lab Eddi Elizabeth Jr., MD HEMATOLOGY ORDERABLES Performing Organization Address City/State/Z[place] [address] (ABNORMAL) Basic Metabolic Panel (non-fasting) (01/30/2022 2:12 PM EDT) P athologist Signature Glucose Lvl 163 65 - 199 [facility] mg/dL [facility] Comment: Diabetes: >=200 mg/dL plus symp toms BUN 30 (H) 10 - 20 mg/dL [facility] LABORATORY Creatinine 1.47 0.80 [...] Anion Gap 11 5 - 15 mmol/L [facility] LABOR[facility]ORY Calcium 9.2 8.5 [...] Nobles MD CHEMISTRY ORDERABLES Performing Organization Address City/[facility]/ZIP Code Phon e Number [address] POCT Glucose (01/30/2022 1:41 PM EDT) athologist Signature POC Glucose 148 65 - 199 [facility] mg/dL [facility] Comment: Supplemental ranges: <140 mg/dL before meals <180 mg/dL all other times of the day Specimen Anatomical Collection Method Collection Time Receive d Time (Source) Location / / Volume Laterality Blood 01/30/2022 1:41 PM 2 1:41 EDT PM EDT Vitaliy Nobles MD POINT OF CARE TEST ORDERABLE S Performing Organization Address City/[facility]/ZIP Code Phon e Number [address] POCT Glucose (01/30/2022 10:48 AM EDT) athologist Signature POC Glucose 193 65 - 199 [facility] mg/dL [facility] Comment: Supplemental ranges: <140 mg/dL before meals <180 mg/dL all other times of the day Specimen Anatomical Collection Method Collection Time Receive d Time (Source) Location / / Volume Laterality Blood 01/30/2022 10:48 01/30/2022 AM EDT 10:48 AM EDT Vitaliy Sandra Nobles MD POINT OF CARE TEST ORDERABLE S Performing Organization Address City/State/ZIP [place] [address] EKG 12 Lead (01/30/2022 10:33 AM EDT) Component Value Ref Range Test Analysis Performed Pathologis t Method Time At Signature Ventricular rate 64 BPM MUSE SYSTEM Atrial Rate 64 BPM MUSE SYSTEM P-R Interval 162 ms MUSE SYSTEM QRS Duration 94 ms MUSE SYSTEM Q-T Interval 422 ms MUSE SYSTEM QTC Calculated 435 ms MUSE SYSTEM (Bezet) Calculated P [place] 41 degrees MUSE SYSTEM Calculated R [place] -27 degrees MUSE SYSTEM Calculated T [place] 104 degrees MUSE SYSTEM INTERPRETATION Normal sinus rhythm MUSE SYSTEM Anterolateral infarct (cited on or before 09-DEC-2021) Abnormal ECG When compared with ECG of 10-DEC-2021 11:17, No significant change was found Confirmed by Gary Perez ([id number]) on 01/30/2022 5:57:5 2 PM Specimen Anatomical Collection Method Collection Time Receive d Time (Source) Location / / Volume Laterality 01/30/2022 10:33 01/30/2022 5:57 AM EDT PM EDT Vitaliy Sandra Nobles MD ECG ORDERABLES Performing Organization Address City/[facility]/ZIP Code Phon e Number MUSE SYSTEM CARDIAC CATHETERIZATION (01/30/2022 10:16 AM EDT) Specimen (Source) Anatomical Location Collection Method / Collectio n Time Received Time / Laterality Volume Narrative CARDIOMAC SYSTEM - 01/30/2022 2:09 PM ED T ?[facility] ? Cardiac Cathete rization/Intervention Report ? Patient Name: Don Fatima. ? Procedure Date: 01/30/2022 ? A #: [id number] ? Primary Physician: Nobles, Vitaliy P ? Case #: [id number] ? File Name: [id number] ? Catheterization Order Number: [id number] ? [facility] ? Final Report [place], [place] ? Patient Name: ? Don E. Stewa rt ? ID#: ?[id number] ? : ?1945 ? Procedure Date: ? January 30, 2022 ? Case #: ? [id number] ? Room: ? 1 ? Case Physician: [...] procedure was Urgent. The indication for ?the center medical and lab director visit is stable kn own CAD. Chest [...] guiding catheter an d a 3.[address] [facility] [address] ??20 Mhz ?using Manual pullback. ??Imagin [...] ?? A premounted 2.00 x 26 mm [place] (TUCKER) ? was deployed wi th a [...] Wedelivered along 2.0 x 26 mm [place] ? TUCKER stent and p ositioned it [...] dose administered prior to arrival in the center medical and lab director. ?Recommended anti-platelet/anti- thrombotic regimen: ?Continue aspirin 81 [...] using validated risk predictors ?(e.g. CHADS2-VASC, HAS-BLED, VA ECISE DAPT, DAPT Score) ?- ??Keep anticoagulant [...] using a 2.0 x 26 mm [place] TUCKER stent. ?This completes the revasculariz ation [...] MD CARDIAC CATH ORDERABLES Performing Organization Address City/[facility]/ZIP Code Phon e Number CARDIOMAC SYSTEM (ABNORMAL) POCT Glucose (01/30/2022 9:04 AM EDT) P athologist Signature POC Glucose 212 (H) 65 - 199 [facility] mg/dL [facility] Comment: Supplemental ranges: <140 mg/dL before meals <180 mg/dL all other times of the day Specimen Anatomical Collection Method Collection Time Receive d Time (Source) Location / / Volume Laterality Blood 01/30/2022 9:04 AM 2 9:04 EDT AM EDT Vitaliy Nobles MD POINT OF CARE TEST ORDERABLE S Performing Organization Address [facility]/[place] [address] (ABNORMAL) POCT Glucose (01/30/2022 8:10 AM EDT) P athologist Signature POC Glucose 224 (H) 65 - 199 [facility] mg/dL [facility] Comment: Supplemental ranges: <140 mg/dL before meals <180 mg/dL all other times of the day Specimen Anatomical Collection Method Collection Time Receive d Time (Source) Location / / Volume Laterality Blood 01/30/2022 8:10 AM 2 8:10 EDT AM EDT Vitaliy Nobles MD POINT OF CARE TEST ORDERABLE S Performing Organization Address City/[facility]/[place] [address] documented in this encounter Visit Diagnoses Diagnosis ASCVD (arteriosclerotic cardiovascular d isease) Unspecified cardiovascular disease 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 ASHD (arteriosclerotic heart disease) Coronary atherosclerosis of unspecified type of vessel, [place] or graft ASCVD (arteriosclerotic cardiovascular d isease) Unspecified cardiovascular disease documented in this encounter Admitting Diagnoses Diagnosis CAD (coronary artery disease) Coronary atherosclerosis of unspecified type of vessel, [place] or graft documented in this encounter Administered [...] 10:11 AM EDT 100 mcg (DIRECTOR OF PRODUCT MARKETING) ONCE PRN, Starting on Wed01/30/22 at 0927, [...] niCARdipine (Cardene) (100 mcg/mL) dilution (DIRECTOR OF PRODUCT MARKETING) (CANCELED ) 0927 (Given - Provider: Vitaliy [...] (Intra-Procedure) documented in this encounter Care Teams Provider Relations Advocate Relationship Specialty Start Date End Date Lovely Vicente MD PCP - General 04/16/[address] [place] [address] documented as of this encounter
--- OUTSIDE RECORDS SUMMARY | 2022-03-06 08:05 | XMS_ITS | Encounter Summary ---
:1945 Author Organization [facility] [place] [address] Care Team Providers Name Role Phone Lovely Vicente MD Primary Care Provider Encounter Details Date Type Department Care Team Description 02/19/2022 Laboratory Appointment Lab 3L [facility] systolic [facility] [place] [id number] Social History Tobacco Use Types Packs/Day Years [...] Vitaliy Nobles MD [facility] CARDIOLOGY [place], [place] [address] (Wo rk) 06/10/2022 Office Visit Dermatology Laura Scherer MD [facility] DR TE[address] [facility]LOGY [place], [place] [address] (Wo rk) documented as of [...] (ABNORMAL) Differential, Automated (02/19/2022 8:06 AM EDT) [facility] Method Time Signature Neutrophils % 76.0 % [facility] LAB[facility]ORY Neutr Abs (ANC) 5.49 1.70 - [facility] 6.10 [facility] x10(3)/[facility] LABORATORY Lymphocytes % 10.8 % [facility] Lymphocytes Abs 0.8 (L) 0.9 - 3.2 [facility] x10(3)/[facility] LABORATORY Monocytes % 10.2 % [facility] Monocyte Abs 0.7 0.3 - 0.9 [facility] x10(3)/[facility] LABORATORY Eosinophils % 1.2 % [facility] Eosinophils Abs 0.1 0.0 - 0.4 [facility] x10(3)/[facility] LABORATORY Basophils % 0.8 % [facility] Basophils Abs 0.1 0.0 - 0.1 [facility] x10(3)/[facility] LABORATORY Immature Gran % 1.00 % [facility] [...] Abs 0.07 (H) 0.00 - 0.04 x10(3)/[facility] LABORATORY Specimen Anatomical Collection Method Collection Time Receive d Time (Source) Location / / Volume Laterality Blood 02/19/2022 8:06 AM 2 8:09 EDT AM EDT Resulting Agency Comment Spec In Lab Liz BROWN HEMATOLOGY ORDERABLES Performing Organization Address City/State/[place] [address] (ABNORMAL) Hemogram (02/19/2022 8:06 AM EDT) Analysis Performed At Patho logist Time Signature WBC 7.2 4.0 - 9.5 [facility] LABORATORY RBC 4.41 (L) 4.58 - [facility] 5.54 [facility] x10(6)/[facility] LABORATORY Hemoglobin 13.2 (L) 13.7 - [facility] 16.5 g/dL [facility] Hematocrit 40.9 40.5 - [facility] 48.5 % [facility] MCV 92.7 82.9 - [facility] 93.1 [facility] LABORATORY MCH 29.9 27.5 - [place] [facility] 32.1 pg [facility] MCHC 32.3 32.0 - [facility] 35.7 g/dL [facility]ORY Platelets 191 145 - 357 [facility] x10(3)/[facility] LABORATORY RDWSD 53.6 (H) 36.0 - [facility] 45.0 [facility] LABORATORY RDWCV 15.6 (H) 11.4 - [facility] 13.8 % [facility] LABORATORY MPV 8.7 7.6 - 12.9 [facility] LABORATORY nRBC % Auto 0.0 % [facility]OR[facility]ORY nRBC Abs Auto 0.000 0.000 - [facility] 0.000 [facility] x10(3)/[facility] LABORATORY Specimen Anatomical Collection Method Collection Time Receive d Time (Source) Location / / Volume Laterality Blood 02/19/2022 8:06 AM 2 8:09 EDT AM EDT Resulting Agency Comment Spec In Lab Liz BROWN HEMATOLOGY ORDERABLES Performing Organization Address City/State/[place] [address] [facility] LAB[address] (ABNORMAL) pro-Brain Natriuretic Peptide [...] Address City/State/ZIP Code Phon e Number [address] (ABNORMAL) Basic Metabolic Panel (non-fasting) (02/19/2022 8:06 AM EDT) athologist Signature Glucose Lvl 139 65 - 199 [facility] mg/dL [facility] LAB[facility]ORY Comment: Diabetes: >=200 mg/dL plus symp toms BUN 31 (H) 10 - 20 mg/dL [facility] LABORATORY Creatinine 1.53 (H) 0.80 - 1.50 mg/dL [facility] LABORATORY Sodium 142 135 - 145 mmol/L [facility] LABORATORY Potassium 5.4 (H) 3.5 - 5.0 mmol/L [facility] [...] mmol/L [facility] LABORATORY Calcium 9.7 8.5 - 10.5 mg/dL [facility] [...] Organization Address City/State/[place] [address] documented in this encounter Visit Diagnoses Diagnosis Chronic systolic heart failure documented in this encounter Care Teams Ribbon Lap Machine Tender Relationship Specialty Start Date End Date Lovely Vicente MD PCP - General 04/16/[address] [place] [address] documented as of this encounter
--- OUTSIDE RECORDS SUMMARY | 2022-03-06 08:05 | XMS_ITS | Clinical Summary ---
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 Dayami Buckner 12/24/2021 Orders Only [...] Cardiology Vitaliy Nobles MD [facility] CARDIOLOGY [place], [place] [address] (Wo rk) 06/10/2022 Office Visit Dermatology Laura Scherer MD [facility] ER [address] [place] [address] (Wo rk) Health Maintenance Due Date Last Done Comments Covid-19 Vaccine (#1) 1950 Pneumoccocal Vaccine: 65+ (1 - PCV) 1952 Hepatitis C Screening 1964 Tdap adult 1965 Tetanus vaccine 1965 Zoster vaccine (1 of 2) 1996 AAA Screen 2011 Colonoscopy 01/16/2019 01/16/2014, 01/16/2014 Influenza (Flu) vaccine (1 of 1 - 03/26/2022 03/29/2013, Influenza standard series) Medical Devices Implanted Type Area Ambulatory Care Coordinator Device Shelf Model / Identifier Expiration Serial / Date Lot Cable,Cut,Edg,Blnt,Ss,3tpr ([id number]) - [id number] IMPLANTS Midline: [employer] 04/01/2022 [id number] / Implanted: Qty: 4 on 07/07/2017 by Yuan Reatna MD at COUNT INCLUDES THE [facility] [employer] - / [id number] Procedures Procedure Name Priority Date/Time Associated Diagnosis Comme nts LAB SCAN 03/05/2022 12:00 Results for this AM EDT procedure are i n the results section. DIFFERENTIAL, AUTOMATED Routine 02/19/2022 8:06 Chronic systol [...] results section. from Last 3 Months Results SCAN DOC: LAB (03/05/2022 12:00 AM EDT)Only the most recent of3 resultswithin the time period is included. Narrative This result has an attachment that is no t available. Unknown MEDIA MGR SCAN EXT ORDR/RSLT (ABNORMAL) Hemogram (02/19/2022 8:06 AM EDT)Only the most recent of9 results within the time period is included. Analysis Performed At Patho logist Time Signature WBC 7.2 4.0 - 9.5 [facility] x10(3)/[facility] LABORATORY RBC 4.41 (L) 4.58 - [facility] 5.54 [facility] x10(6)/[facility] LABORATORY Hemoglobin 13.2 (L) 13.7 - [facility] 16.5 g/dL [facility] LABORATORY Hematocrit 40.9 40.5 - BARBARA OLIVASCK 48.5 % [facility] LABORATORY MCV 92.7 82.9 - [facility] 93.1 [facility] LABORATORY MCH 29.9 27.5 - BARBARA RYAN 32.1 pg [facility] LABORATORY MCHC 32.3 32.0 - BARBARA ZHAORYAN 35.7 g/dL [facility] LABORATORY Platelets 191 145 - 357 [facility] x10(3)/[facility] LABORATORY RDWSD 53.6 (H) 36.0 - [facility] 45.0 [facility] LABORATORY RDWCV 15.6 (H) 11.4 - [facility] RYAN 13.8 % [facility] LABORATORY MPV 8.7 7.6 - 12.9 [facility] LABORATORY nRBC % Auto 0.0 % [facility] LABORATORY nRBC Abs Auto 0.000 0.000 - [facility] 0.000 [facility] x10(3)/[facility] LABORATORY Specimen Anatomical Collection Method Collection Time Receive d Time (Source) Location / / Volume Laterality Blood 02/19/2022 8:06 AM 8:09 EDT AM EDT Resulting Agency Comment Spec In Lab Liz BROWN HEMATOLOGY ORDERABLES Performing Organization Address City/State/[place] [address] (ABNORMAL) Differential, Automated (02/19/2022 8:06 AM EDT)Only the most recent of9 resultswithin the time period is included. [facility] gist Method Time Signature Neutrophils % 76.0 % [facility] LABORATORY Neutr Abs (ANC) 5.49 1.70 - BARBARA ZHAORYAN 6.10 [facility] x10(3)/[facility] LABORATORY Lymphocytes % 10.8 % [facility] LABORATORY Lymphocytes Abs 0.8 (L) 0.9 - 3.2 [facility] x10(3)/[facility] LABORATORY Monocytes % 10.2 % [facility] LABORATORY Monocyte Abs 0.7 0.3 - 0.9 [facility] x10(3)/[facility] LABORATORY Eosinophils % 1.2 % [facility] LABORATORY Eosinophils Abs 0.1 0.0 - 0.4 [facility] x10(3)/[facility] LABORATORY Basophils % 0.8 % [facility] LABORATORY Basophils Abs 0.1 0.0 - 0.1 [facility] x10(3)/[facility] LABORATORY Immature Gran % 1.00 % [...] Gran Abs 0.07 (H) 0.00 - 0.04 x10(3)/[facility] LABORATORY Specimen Anatomical Collection Method Collection Time Receive d Time (Source) Location / / Volume Laterality Blood 02/19/2022 8:06 AM 2 8:09 EDT AM EDT Resulting Agency Comment Spec In Lab Liz BROWN HEMATOLOGY ORDERABLES Performing Organization Address City/State/[place] [address] (ABNORMAL) pro-Brain Natriuretic Peptide (02/19/2022 8:06 AM EDT)Only the most recent of2 resultswithin the time period is included. athologist Signature ProBNP 984 (H) <=449 pg/mL [facility] LABORATORY Specimen Anatomical Collection Method Collection Time Receive d Time (Source) Location / / Volume Laterality Blood 02/19/2022 8:06 AM 2 8:09 EDT AM EDT Resulting Agency Comment Spec In Lab Zulma Plunkett MD CHEMISTRY ORDERABLES Performing Organization Address City/State/[place] [address] (ABNORMAL) Basic Metabolic Panel (non-fasting) (02/19/2022 8:06 AM EDT)Only the most recent of7 resultswithin the time period is included. athologist Signature Glucose Lvl 139 65 - 199 [facility] mg/dL [facility] LABORATORY Comment: Diabetes: >=200 mg/dL plus symp toms BUN 31 (H) 10 - 20 mg/dL [facility] LABORATORY Creatinine 1.53 (H) 0.80 - [...] mmol/L [facility] LABORATORY CO2 31 22 - 31 mmol/L [facility] LABORATORY Anion Gap 11 5 - 15 mmol/L [facility] LABORATORY Calcium 9.7 8.5 - 10.5 mg/dL [facility] LABORATORY Estimated GFR 47 (L) >=60 mL/min/1.73 m?? [facility] [...] Address City/State/[place] [address] [facility] [address] POCT Glucose (01/30/2022 1:41 PM EDT)Only the most recent of36 resultswithin the time period is included. P athologist Signature POC Glucose 148 65 - 199 [facility] mg/dL [facility] LABORATORY Comment: Supplemental ranges: <140 mg/dL before meals <180 mg/dL all other times of the day Specimen Anatomical Collection Method Collection Time Receive d Time (Source) Location / / Volume Laterality Blood 01/30/2022 1:41 PM 2 1:41 EDT PM EDT Vitaliy Sandra Nobles MD POINT OF CARE TEST ORDERABLE S Performing Organization Address City/[facility]/ZIP Code Phon e Number [address] EKG 12 Lead (01/30/2022 [...] 435 ms MUSE SYSTEM (Bezet) Calculated P [place] 41 degrees MUSE SYSTEM Calculated R [place] -27 degrees MUSE SYSTEM Calculated T [place] 104 degrees MUSE SYSTEM INTERPRETATION Normal sinus rhythm MUSE SYSTEM Anterolateral infarct (cited on or before 09-DEC-2021) Abnormal ECG When compared with ECG of 10-DEC-2021 11:17, No significant change was found Confirmed by Gary Perez ([id number]) on 01/30/2022 5:57:5 2 PM Specimen Anatomical [...] SYSTEM - 01/30/2022 2:09 PM ED T ?[facility] ? Cardiac Cathete rization/Intervention Report ? Patient Name: Kushal, Don E. ? Procedure Date: 01/30/2022 ? A #: [id number] ? Primary Physician: Nobles, Vitaliy P ? Case #: [id number] ? File Name: [id number] ? Catheterization Order Number: [id number] ? [facility] [facility] ? Final Report [place], [place] ? Patient Name: ? Don E. Stewa rt ? ID#: ?[id number] ? : ?1945 ? Procedure Date: ? January 30, 2022 ? Case #: ? [id number] ? Room: ? 1 ? Case Physician: [...] kacie gnated as ASA Class III. The [facility] clinical ?frailty scale is 5: Mildly Frai [...] was Urgent. The indication for ?the lab technologist visit is stable kn own CAD. Chest [...] guiding catheter an d a 3.[address] [facility] [address] ??20 Mhz ?using Manual pullback. ??Imagin [...] A premounted 2.00 x 26 mm Hardeep Cascade (TUCKER) ? was deployed wi a maximum [...] Wedelivered along 2.0 x 26 mm HARDEEP Cascade ? TUCKER stent and p ositioned it [...] dose administered prior to arrival in the lab technologist. ?Recommended anti-platelet/anti- thrombotic regimen: ?Continue aspirin 81 [...] require ?modification of this regimen. [facility] Interventional Cardiology for ?questions. ?The 1 year [...] using a 2.0 x 26 mm HARDEEP Cascade TUCKER stent. ?This completes the revasculariz ation [...] Phon e Number CARDIOMAC SYSTEM SCAN DOC: TELEMETRY STRIPS (12/12/2021 6:00 AM [...] Glucose 152 (H) 65 - 99 [place] VILLAREALCOCK Fasting mg/dL [facility] LABORATORY Comment: ?Fasting* Glucose Interpretive C riteria [...] BUN 52 (H) 10 - 20 mg/dL [facility] LABORATORY Creatinine 1.72 (H) 0.80 - 1.50 mg/dL [facility] LABORATORY Sodium 143 135 - 145 mmol/L [facility] LABORATORY Potassium 3.9 3.5 - 5.0 mmol/L [facility] LABORATORY Comment: Please note: ??Patients with WBC >100,00 0 may have falsely elevated Potassium levels. ??For accurate Potassium quantif ication in these patients send serum separator tube (gold top) for subsequent determinations. ??Contact the Clinical Chemistry Laboratory if there are any qu estions. Chloride 105 98 - 107 mmol/L [facility] LABORATORY CO2 21 (L) 22 - 31 mmol/L [facility] LABORATORY Anion Gap 17 (H) 5 - 15 mmol/L [facility] LABORATORY Calcium 8.9 8.5 - 10.5 mg/dL [facility] LABORATORY Estimated GFR 38 (L) >=60 mL/min/1.73 m?? [facility] [...] City/[facility]/[place] [address] (ABNORMAL) Prothrombin Time (12/12/2021 4:51 AM EDT)Only the most recent of4 resultswithin the time period is included. P athologist Signature PT 14.9 (H) 9.4 - 12.5 [facility] LABORATORY INR 1.3 [facility] LABORATORY Comment: An [...] City/[facility]/[place] [address] Magnesium (12/12/2021 4:51 AM EDT)Only the most recent of5 resultswithin the time period is included. P athologist Signature Magnesium 1.02 0.69 - 1.07 [facility] mmol/L [facility] LABORATORY Specimen Anatomical Collection Method Collection Time Receive d Time (Source) Location / / Volume Laterality Blood 12/12/2021 4:51 AM 2 5:06 EDT AM EDT Resulting Agency Comment Spec In Lab Iker Cuevas MD CHEMISTRY ORDERABLES Performing Organization Address City/[facility]/ZIP [place] [address] COVID-19 PCR (12/11/2021 10:13 AM EDT) [facility] Method Time Signature SARS-CoV-2 Not Detected Not Detected BARBARA RNA [facility] LABORATORY Comment: This result [...] diagnosis of COVID-19 is performed using the CrossCurrent S-CoV-2 Assay as authorized by the FDA Emergency Use Authorization (EUA). This EUA assay is intended for In-vitro Diagnostic (IVD) use with respiratory sp ecimens such as nasopharyngeal swabs collected from individuals during the ac cachil dehe phase of infection. This assay is performed based on the instructions for use provided by [employer] and additional guidance provided by CDC and FDA. Testing is performed in the Clinical Genomics and Advanced Technolog y Laboratory within the Department of Pathology and Laboratory Medicine at [facility], certified under the Clinical Laboratory Improvement Amendments [...] fact sheets at the following FDA website: https://www.fda.gov/medical-devices/jztdqmdtkbg-zdhvlbp-9934-cnzmq-20-kpwdpdilm- sox-xyhfhlilbrsumd-hzvtqdw-devices/fpxoz-dlqgtkzvwed-zuvt SARS-Cov-2 RNA Source [facility] Swab [facility] LABORATORY Specimen (Source) Anatomical Collection Method Collection Time Re ceived Time Location / / Volume Laterality Nasopharyngeal Swab 12/11/2021 10:13 05/1 03/2022 AM EDT 11:16 AM EDT Comment: Symptoms->Surveillance Resulting Agency Comment Spec In Lab Iker Cuevas MD MICROBIOLOGY - GENERAL ORDER ROBSON Performing Organization Address City/State/[place] [address] Potassium (12/10/2021 7:46 PM EDT) athologist Signature Potassium 4.2 3.5 - 5.0 [facility] mmol/L [facility] LABORATORY Comment: Please note: ??Patients with WBC [...] Address City/State/[place] [address] (ABNORMAL) Point of Care Blood Gas Historical (12/10/2021 9:04 AM EDT) Patholo gist Method Time Signature POC pH 7.40 7.35 - [facility] 7.45 [facility] LABORATORY POC PCO2 40 35 - 45 [facility] LABORATORY POC PO2 63 (L) 85 - 104 [facility] LABORATORY POC Base Excess 0.0 -3.0 - 3.0 [facility] K mmol/L [facility] LABORATORY POC HCO3 24.8 20.0 - [facility] 26.0 [facility] mmolVA HOSPITAL LABORATORY POC Sodium 143 135 - 145 [facility] mmol/L [facility] LABORATORY POC Potassium 3.7 3.5 - 5.0 [facility] mmol/L [facility] LABORATORY POC Ionized Ca 1.07 (L) 1.15 - [facility] 1.33 [facility] mmolVA HOSPITAL LABORATORY POC Hematocrit 30.0 (L) 40.0 - [facility] 51.0 % [facility] LABORATORY POC Calc Hgb 10.2 (L) 13.7 - [facility] 17.5 g/dL [facility] LABORATORY Comment: The calculation of hemoglobin f rom hematocrit assumes a normal MCHC. POC Bgas Loc CC LAB [facility] LABORATORY Specimen Anatomical Collection Method Collection Time Receive d Time (Source) Location / / Volume Laterality Blood 12/10/2021 9:04 AM 2 EDT 12:00 PM EDT Ifeanyi Truong MD CHEMISTRY ORDERABLES Performing Organization Address City/State/[place] [address] Heparin (unfractionated) Level (12/10/2021 [...] Address City/State/[place] [address] (ABNORMAL) Troponin (12/09/2021 6:18 AM EDT)Only the most recent of3 results within the time period is included. athologist Signature Troponin-T 1.13 (H) 0.00 - [facility] 0.00 ng/mL [facility] LABORATORY Comment: The 99th percentile for Troponin [...] additional sample may be indicated. Reference: Third [place] Definition of Myocardial Infarction. Journal of the [place] College of Cardiology 2012;60:1581-98 Specimen Anatomical Collection Method Collection Time Receive d Time (Source) Location / / Volume Laterality Blood 12/09/2021 6:18 AM 2 6:33 EDT AM EDT Resulting Agency Comment Spec In Lab Iker Cuevas MD CHEMISTRY ORDERABLES Performing Organization Address City/[facility]/[place] [address] TSH (12/09/2021 6:18 AM EDT) P athologist Signature TSH 1.60 0.27 - 4.20 [facility] mcIU/mL [facility] LABORATORY Comment: Reference Interval (mcIU/mL): Females: ??First Trimester: 0.23-3.88 ??Second Trimester: 0.22-3.90 ??Third Trimester: 0.44-4.66 Specimen Anatomical Collection Method Collection Time Receive d Time (Source) Location / / Volume Laterality Blood 12/09/2021 6:18 AM 2 6:33 EDT AM EDT Resulting Agency Comment Spec In Lab Iker Cuevas MD CHEMISTRY ORDERABLES Performing Organization Address City/[facility]/ZIP [facility] [place] [address] (ABNORMAL) Hemoglobin A1c (12/09/2021 6:18 AM EDT) Analysis Performed At Patho logist Time Signature Hemoglobin A1C 7.4 (H) 4.3 - 5.6 [facility] % [facility] LABORATORY Comment: Reference Range: 4.3 - 5.6% [...] Mellitus, Diabetes Care 2013; 36: Suppl. 1, E17-78 Est Avg Gluc See note mg/dL [place] DAVIS [facility] LABORATORY Comment: Estimated Average Glucose [...] into estimated average glucose values. ??Diabetes Care 2008:31(8):6730-3889. Specimen Anatomical Collection Method Collection Time Receive d Time (Source) Location / / Volume Laterality Blood Venous Draw / 12/09/2021 6:18 AM 12/10/19 22 Unknown EDT 12:24 PM EDT Resulting Agency Comment Spec In Lab Migdalia BROWN CHEMISTRY ORDERABLES Performing Organization Address City/State/ZIP Code Phon [place] [address] Hepatic Function Panel (12/09/2021 6:18 AM EDT) athologist Signature Total Protein 7.3 6.1 - 8.0 [place] DAVIS g/dL [facility] LABORATORY Albumin 4.2 3.2 - 5.2 [place]BARA RYAN g/dL [facility] LABORATORY AST 25 0 - 39 [facility] unit/L [facility] LABORATORY ALT 15 0 - 55 [facility]/L [facility] LABORATORY Alk Phos 75 40 - 130 [facility] unit/L [facility] LABORATORY Total 1.1 0.2 - 1.3 [facility] Bilirubin mg/dL [facility] LABORATORY Bili, Direct 0.2 0.0 - 0.3 [facility] mg/dL [facility] LABORATORY Specimen Anatomical Collection Method Collection Time Receive d Time (Source) Location / / Volume Laterality Blood 12/09/2021 6:18 AM 6:33 EDT AM EDT Resulting Agency Comment Spec In Lab Iker Cuevas MD CHEMISTRY ORDERABLES Performing Organization Address City/State/[place] [address] Lipid Panel (Reflex Direct LDL) (12/09/2021 6:18 AM EDT) athologist Signature Chol, Total 105 mg/dL [facility] LABORATORY Comment: Lower Risk: <200 mg/dL Average Risk: 200-239 mg/dL Higher Risk: >ig=113 mg/dL Triglycerides 133 mg/dL [facility] LABORATORY Comment: Average Risk/Lower Risk: <150 mg/dL Borderline High Risk: 150-199 mg/dL High Risk: 200-499 mg/dL Very High Risk: >tb=089 mg/dL HDL 42 mg/dL [facility] LABORATORY Comment: Males: ?? Higher Risk: <40 mg/dL Females: ?? Higher Risk: <50 mg/dL LDL Cholesterol 36 mg/dL [facility] LABORATORY Comment: Lowest Risk: <100 mg/dL Lower Risk: 100-129 mg/dL Borderline High Risk: 130-159 mg/dL High Risk: 160-189 mg/dL Very High Risk: >af=779 mg/dL Chol/HDL Ratio 2.5 ratio [facility] LABORATORY Lipid Interpretation See Note [facility] LABORATORY Comment: Lipid management should be guided by a p atient? s ASCVD risk, goals and preferences. ACC/AHA Guidelines recommend high intens ity statin if clinical ASCVD or LDL greater than or equal to 190 mg/dL. http://CentrixurDownloadperu.com.com/VJN-RRZ-Lijgkkdlp Adults aged 40-75 with LDL 70-189 mg/dL should have their 10 year ASCVD risk estimated with the ACC/AHA ASCVD risk es timator http://tools.acc.org/YNLUN-Xhel-Ygawbrsq r/ Statin should be discussed if risk [...] Organization Address City/State/ZIP Code Phon e Number [place] [id number] XR Chest One View [...] questions please contact the health managed care director that requested your imaging first. ? Narrative [...] questions please contact the health managed care director that requested your imaging first. Amber Sanches MD IMG DX ORDERABLES (ABNORMAL) BLOOD GAS 2 ARTERIAL (12/09/2021 5:14 AM EDT) Analysis Performed At Patho logist Time Signature pH Art 7.43 7.35 - [facility] 7.45 [facility] LABORATORY pCO2 Art 36 35 - 45 [facility] LABORATORY pO2 Art 67 (L) 85 - 104 [facility] LABORATORY HCO3 Art 23.4 20.0 - [facility] 26.0 [facility] mmol/L [facility] LABORATORY BE Art -0.9 -3.0 - 3.0 [facility] mmol/L [facility] LABORATORY Hgb Blood Gas 13.2 (L) 13.7 - [facility] 16.5 g/dL [facility] O2HB Art 91.3 (L) 94.0 - [facility] 97.0 % [facility] COHB Art 0.4 % [facility] LABORATORY Comment: Nonsmokers: 0.5-1.5% COHB Smokers: Variable, but usually less than 10% Toxic: 20-30% COHB Lethal: Greater than 60% COHB METHB Art 0.4 <=1.5 % [facility] LABORATORY Na Whole Blood 138 135 - 145 mmol/L [facility] LABOR[facility] K Whole Blood 4.1 3.5 - 5.0 mmol/L [facility] LABORAT[facility] Comment: Please note: Patients with WBC >100,000 may have falsely elevated Potassium levels. Contact the Clinical Chemistry L aboratory if there are any questions. ICa Whole Blood 1.09 (L) 1.15 - 1.33 mmol/L [facility] LABORATORY Comment: Note: ??Total bilirubin higher than 20 m g/dL may lead to falsely low ionized calcium. CL Whole Blood 104 98 - 107 mmol/L [facility] LABORATORY Gluc Whole Bld 223 (H) 65 - 199 mg/dL [facility] LABORATORY Comment: Diabetes: >=200 mg/dL plus symp toms. Lactate WB 2.7 (H) 0.5 - 2.2 mmol/L [facility] LABORATORY FIO2 Art 35 % [facility] LABORATORY Flow Art 8.0 LPM [facility] LABORATORY PF Ratio Art 191 [facility] LABORATORY Specimen Anatomical Collection Method Collection Time Receive d Time (Source) Location / / Volume Laterality Blood 12/09/2021 5:14 AM 2 5:14 EDT AM EDT Iker Cuevas MD CHEMISTRY ORDERABLES Performing Organization Address City/State/ZIP Code Phon e Number BARBAR[place] [facility] [address] COVID-19 PCR (12/08/2021 5:00 PM EDT) [facility] Method Time Signature SARS-CoV-2 Not Detected [...] using the Simplexa COVID-19 Direct Assay by [employer] as authorized by the FDA issued Emergency [...] fact sheets at the following FDA website: https://www.fda.gov/medical-devices/fcadqeibqwi-ybivsri-6220-csgho-63-vpgikalen- uvq-rhjtrguzheynvc-ezkeaex-devices/jccnn-pprqtpitlxy-ovns SARS-CoV-2 Source [facility] Swab [facility] LABORATORY Specimen (Source) Anatomical Collection Method Collection Time Re ceived Time Location / / Volume Laterality Nasopharyngeal Swab 12/08/2021 5:00 12/08 PM EDT 6:03 PM EDT Comment: Symptoms->Surveillance Resulting Agency Comment Spec In Lab Iker Cuevas MD MICROBIOLOGY - GENERAL ORDER [place] Performing Organization Address City/State/[place] [address] Scan Doc: Echo (12/08/2021) [...] Address City/State/ZIP Code Phon e Number RAD [employer], [place] Scan Doc: ECG (12/07/2021) Narrative This result has an attachment that is no t available. Historical Provider MEDIA MGR SCAN EXT ORDR/RSLT from Last 3 Months Insurance Payer Benefit Plan / Subscriber ID Effective Phone Address T ype Group Dates MEDICARE MEDICARE PART [id number] 2011-Prese [phone] [place] [address] [place] [id number] 2018-Prese [phone] [address] [place] [address] [place] [id number] Advance Directives Documents on File Type Date Recorded Patient Press Catcher Explanati on Advance Directives and Living 03/28/2013 [...] capacity to make decision: Yes Care Teams Bookie Relationship Specialty Start Date End Date Lovely Vicente MD PCP - General 04/16/[address] [place] [id number]
--- OUTSIDE RECORDS SUMMARY | 2022-03-06 08:05 | XMS_ITS | Encounter Summary ---
:1945 [place] [address] Care Team Providers Name Role Phone Lovely Vicente MD Primary Care Provider Reason for Visit Reason Onset Date Comments Follow-up 02/26/2022 Entresto start Encounter Details Date Type Department Care Team Description 02/26/2022 Telephone Cardiology at [facility] Martha Comer, Follow-up ([facility] RN start) [place] [address] Social History Tobacco Use Types Packs/Day [...] on 03/05/22 Getting labs done at : [facility] Order e-faxed by STEPHANIE Poole on 02/24/22. /pt to call on 03/05/22 letting us know to get the BMP results from [facility]. Nursing to get results and contact pt to see how he is tolerating the Entresto. They are to call sooner with any questions/concerns. documented in this encounter Plan of Treatment Upcoming Encounters Date Type Specialty Care Team Description 03/26/2022 Office Visit Cardiology Vitaliy Nobles MD [facility] CARDIOLOGY [place], [place] [address] (Wo rk) 06/10/2022 Office Visit Dermatology Laura Scherer MD [facility] [address] [place], [place] [address] (Wo rk) documented as of this encounter Visit Diagnoses Not on filedocumented in this encounter Care Teams Employee Development Specialist Relationship Specialty Start Date End Date Lovely Vicente MD PCP - General 04/16/[address] [place] [address] documented as of this encounter
--- OUTSIDE RECORDS SUMMARY | 2022-03-06 08:05 | XMS_ITS | Encounter Summary ---
:1945 Author Organization [facility] [place] [address] Care Team Providers Name Role Phone Lovely Vicente MD Primary Care Provider Encounter Details Date Type Department Care Team Description 12/15/2021 Telephone Cardiology at [facility] Barbara [place]era, [place] [address] Social History Tobacco Use Types Packs/Day [...] Nobles MD [facility] [address] [place], [place] [address] (Wo rk) 06/10/2022 Office Visit Dermatology Laura Scherer MD [facility] DR TE[address] [facility] [place], [place] [address] (Wo rk) documented as of this encounter Visit Diagnoses Not on filedocumented in this encounter Care Teams Ribbon Winder Relationship Specialty Start Date End Date Lovely Vicente MD PCP - General 04/16/[address] [place] [address] documented as of this encounter
--- OUTSIDE RECORDS SUMMARY | 2022-03-06 08:05 | XMS_ITS | Encounter Summary ---
:1945 Author Organization [facility] [place] [address] Care Team Providers Name Role Phone Lovely Vicente MD Primary Care Provider Reason for Visit Reason Onset Date Comments Follow-up 02/23/2022 Medication adjustmen t and new med Encounter Details Date Type Department Care Team Description 02/23/2022 Telephone Cardiology at [facility] Martha Comer, Follow-up ([facility] RN adjustbrandon t and new med) [place] [address] Social History Tobacco Use Types Packs/Day [...] the order for BMP and sent to [facility]. will call [facility] to make an appointment for next Wednesday03/04/22. They will call when he gets the test done so we can get the results. Telephone Encounter - Martha Comer RN - 02/23/2022 6:19 PM EDT , Angela calling for pt, she helps with his meds, to confirm what he is to do with the Spironolactone and Entresto. Per STPEHANIE Poole he is to decrease the Spironolactone (Aldactone) 25 mg to 12.5 mg (1/2 of 25 mg tablet) daily. She will correct his pill materials planner to the new dose. Will need to check with STEPHANIE Poole about repeat BMP to recheck K+ level. If yes he will get the test done at [facility]. They are aware that he will need to make an appt at [facility] to get the test done. Entresto: [...] if he qualifies for assistance from the [employer]. She is thankful for the assistance, as he is taking insulin that is very expensive too. Instructed to call this copywriter, if he does qualify for assistance from [place] and that he has gotten the medication [...] Visit Cardiology Vitaliy Nobles MD [facility] ER [address] [place], [place] [address] (Wo rk) 06/10/2022 Office Visit Dermatology Laura Scherer MD [facility] ER [address] TEJA GR[address]DERMAT [facility] [place], [place] [address] (Wo rk) documented as of this encounter Visit Diagnoses Not on filedocumented in this encounter Care Teams Cath Lab Radiology Technician Relationship Specialty Start Date End Date Lovely Vicente MD PCP - General 04/16/[address] [place] [address] documented as of this encounter
--- OUTSIDE RECORDS SUMMARY | 2022-03-06 08:05 | XMS_ITS | Encounter Summary ---
:1945 Author Organization [facility] Address [facility] [place] [address] Care Team Providers Name Role Phone Lovely Vicente MD Primary Care Provider Reason for Visit Reason Comments Prior Authorization Entresto 24-26mg tablets Encounter Details Date Type Department Care Team Description 02/20/2022 Specialty Pharmacy Pharmacy at [facility] Lamberto Smith Prior Authorization [facility] J (Entresto 24-26mg Drive tablets) [place] [id number] Social History Tobacco Use Types Packs/Day Years [...] Don Fatima Patient : 1945 Patient Address: [address] [place] [address] [place] [address] (home) Medication Name: ENTRESTO 24 MG-26 MG TABLET Medication ID: [id number] Patient Location: [facility] CARDIOLOGY 4A Patient Location Comment: Medication Strength Frequency Requested: Entresto 24-26mg tablets / One tablet twice daily Qty/Day Supply: New Start: New to Therapy Diagnosis & ICD-10 Code: Chronic systolic heart failure, I50.22 Subscriber Insurance: [place] [facility] Subscriber Insurance Comment: Fax: Physician: ARIK CARRERA Physician Comment : PA Status: NO PA REQUIRED Insurance mandated Pharmacy: Unknown Fillable at [facility]: Yes Insurance requirements/notes: None Copay: $119.01 (goes to coverage gap/odalys monteiro) Copay assistance: [employer] Copay assistance comment: If cost isn't affordable, then we'll suggest enrollment in the currently open [facility] Heart Failure zoila, which provides up to $1000 in copay assistance. If zoila closes, or doesn't work out, then the patient can attempt enrollment in the event planning intern assistance program, the [employer] Patient [employer] (NPAF). At which point we'd refer to [facility] for assistance with enrollment. Pharmacy [...] Nobles MD [facility] [address] [place], [place] [address] (Wo rk) 06/10/2022 Office Visit Dermatology Laura Scherer MD [facility] DR [address] [place], [place] [address] (Wo rk) documented as of this encounter Visit Diagnoses Not on filedocumented in this encounter Care Teams Adult Health Clinical Nurse Specialist Relationship Specialty Start Date End Date Lovely Vicente MD PCP - General 04/16/[address] [place] [address] documented as of this encounter
--- OUTSIDE RECORDS SUMMARY | 2022-03-06 08:05 | XMS_ITS | Encounter Summary ---
:1945 [place] [address] Care Team Providers Name Role Phone Lovely Vicente MD Primary Care Provider Encounter Details Date Type Department Care Team Description 12/30/2021 Notes Only Cardiac Rehab [facility] Linnea Deluca, [facility][1] [place] [address] Social History Tobacco Use Types Packs/Day [...] Failure team. DX: HFrEF. Referral placed to [facility] documented in this encounter Plan of Treatment Upcoming Encounters Date Type Specialty Care Team Description 03/26/2022 Office Visit Cardiology Vitaliy Nobles MD [facility] ER DR T[address] [place], [place] [address] (Wo rk) 06/10/2022 Office Visit Dermatology Laura Scherer MD [facility] [address] [place], [place] [address] (Wo rk) documented as of this encounter Visit Diagnoses Not on filedocumented in this encounter Care Teams Car Chaser Relationship Specialty Start Date End Date Lovely Vicente MD PCP - General 04/16/15 [facility] [address] [place] [address] documented as of this encounter
--- OUTSIDE RECORDS SUMMARY | 2022-03-06 08:05 | XMS_ITS | Encounter Summary ---
:1945 Author Organization [facility] [place] [address] Care Team Providers Name Role Phone Lovely Vicente MD Primary Care Provider Encounter Details Date Type Department Care Team Description 02/24/2022 Notes Only [place] [address] Social History Tobacco Use Types Packs/Day [...] return to the Medication Assistance Program. The [facility] office will follow up with the patient in 5 business days to see if the patient has received the application and if they have any questions. documented in this encounter Plan of Treatment Upcoming Encounters Date Type Specialty Care Team Description 03/26/2022 Office Visit Cardiology Vitaliy Nobles MD [facility] [address] [place], [place] [address] (Wo rk) 06/10/2022 Office Visit Dermatology Laura Scherer MD [facility] ER DR TEJA [address] [place], [place] [address] (Wo rk) documented as of this encounter Visit Diagnoses Not on filedocumented in this encounter Care Teams Eye Physician Relationship Specialty Start Date End Date Lovely Vicente MD PCP - General 04/16/[address] [place] [address] documented as of this encounter
--- OUTSIDE RECORDS SUMMARY | 2022-03-06 08:05 | XMS_ITS | Encounter Summary ---
:1945 Author Organization [facility] [place] [address] Care Team Providers Name Role Phone Lovely Vicente MD Primary Care Provider Reason for Visit Reason Onset Date Comments Medication Refill 12/12/2021 Torsemide Encounter Details Date Type Department Care Team Description 12/12/2021 Refill Cardiology at [facility] [place] [place] Janneth Padilla, Medication Refill [facility] STEPHANIE (Torsemide) [place] [address] CARDIOLOGY DEPT. [place], [place] [address] (Wo rk) Social History Tobacco [...] Nobles MD [facility] [address] [place], [place] [address] (Wo rk) 06/10/2022 Office Visit Dermatology Laura Scherer MD [facility] [address] [place], [place] [address] (Wo rk) documented as of this encounter Visit Diagnoses Diagnosis Chronic systolic heart failure documented in this encounter Care Teams Certified Medical Dosimetrist Relationship Specialty Start Date End Date Lovely Vicente MD PCP - General 04/16/[address] [place] [address] documented as of this encounter
--- OUTSIDE RECORDS SUMMARY | 2022-03-06 08:05 | XMS_ITS | Encounter Summary ---
:1945 Author Organization [facility] [place] [address] Care Team Providers Name Role Phone Lovely Vicente MD Primary Care Provider Encounter Details Date Type Department Care Team Description 02/23/2022 Refill Cardiology at [facility] Liz Poole PA [facility] [place] [place] [address] Cardiology Dept [phone] [place], [place] [address] (Wo rk) Social History Tobacco [...] Oneill RPH Transfer of Services Don Fatima [address] [place] [address] [place] [address] Telephone Information: Work Phone Not on file. The [facility] has received a prescription for Entresto for patient Mr. Don Fatima 76 y.o. (1945). The patient requests the prescription to be filled with [facility]. We spoke to patient to notify of this change and to provide number to reach the new filling pharmacy. A copyof patient's medication profile was offered to the accepting pharmacy. Additional instructions provided to patient about transfer: no The patient has been advised to call the - Specialty Pharmacy at [phone] with any questionsor concerns on this referral. Thank you, Oxana Oneill RPH 02/23/22 4:26 PM Patient understands no changes to current drug regimen were made at this time. documented in this encounter Plan of Treatment Upcoming Encounters Date Type Specialty Care Team Description 03/26/2022 Office Visit Cardiology Vitaliy Nobles MD [facility] [address] [place], [place] [address] (Wo rk) 06/10/2022 Office Visit Dermatology Laura Scherer MD [facility] DR [address] [place], [place] [address] (Wo rk) documented as of this encounter Visit Diagnoses Not on filedocumented in this encounter Care Teams Model Builder Display Relationship Specialty Start Date End Date Lovely Vicente MD PCP - General 04/16/[address] [place] [address] documented as of this encounter
--- OUTSIDE RECORDS SUMMARY | 2022-03-06 08:05 | XMS_ITS | Encounter Summary ---
:1945 Author Organization [facility] Address [facility] [place] [address] Care Team Providers Name Role Phone Lovely Vicente MD Primary Care Provider Reason for Visit Auth/Cert Specialty Diagnoses / Procedures Referred By Contact Refer red To Contact Diagnoses ASCVD (arteriosclerotic cardiovascular disease) [I25.10] Vitaliy Nobles MD [facility] Procedures PRO PERC TRLUML CORONARY STENT W/ANGIO ONE ART/BRANCH CARDIAC CATHETERIZATION STENT PLACEMENT-SINGLE MAJOR CORONARY ARTERY OR BRANCH [facility] [place] [address] Referral ID Status Reason Start Date Expiration Date Visits Requ ested Visits Authorized [id number] 1 1 Encounter Details Date Type Department Care Team Description 01/30/2022 Hospital Encounter Short Stay Unit at Vitaliy Nobles, CVD (arteriosclerotic cardiovascular disease); Barbara Blue MD 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 We have made a referral to cardiac rehab. Please see the attached instructions regarding care to your right wrist access site. AttachmentsThe following attachments cannot be sent through Care Everywhere. Coronary Angiogram: Post-op (Ukrainian)documented in this encounter Medications at Time of [...] Murray RN - 01/30/2022 4:54 PM EDT [facility] Short Stay Unit Discharge Note All [...] recent PCI presenting for staged PCI to [facility]. The pt states he has [...] recent PCI presenting for staged PCI to [facility]. The indications, expected benefits, and [...] had referred him to cardiac rehab at [facility] last month per HF team. He was waiting until this intervention before starting the program. Reviewed managing angina /use of sl nitroglycerin. Given parameters for home exercise. 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 We discussed short walks several times per day. Will send [facility] his discharge summary from this admission. The patient should be contacted by the Program within 1- 2 weeks from discharge. Brief Op Note - Vitaliy Nobles MD - 01/30/2022 10:19 AM EDT Images from the original note were not included. Formerly [facility] [place] [address] [place] [address] CORONARY ANGIOGRAM AND PERCUTANEOUS CORONARY INTERVENTION REPORT Patient: Don Fatima : 1945 MR number: [id number] Date of Service: 01/30/2022 Carpet Inspector: Vitaliy Nobles MD Fellow: KEYON Elizabeth [...] a long 2.0 x 26 mm ORION Eagle TUCKER stent and positioned it at the [...] Post: ? SUMMARY AND THERAPEUTIC RECOMMENDATIONS: ?? oDn Fatima presented with a NSTEMI, pulmonary edema, [...] using a 2.0 x 26 mm ORION Eagle TUCKER stent. This completes the revascularization ofall [...] MD [facility] [address] [place], [place] [address] ( rk) 06/10/2022 Office Visit Dermatology Laura Scherer MD [facility] DR TEJA GR-DERMAT OLOGY [place], [place] [address] (Wo rk) Scheduled Orders Name [...] P athologist Signature Neutrophils % 71.8 % [facility] LABORATORY Neutr Abs (ANC) 3.96 1.70 - [facility] 6.10 [facility] x10(3)/[facility] LABORATORY Lymphocytes % 16.3 % [facility] LABORATORY Lymphocytes Abs 0.9 0.9 - 3.2 [facility] x10(3)/[facility] LABORATORY Monocytes % 10.0 % [facility] LABORATORY Monocyte Abs 0.6 0.3 - 0.9 [facility] x10(3)/[facility] LABORATORY Eosinophils % 0.5 % [facility] LABORATORY Eosinophils Abs 0.0 0.0 - 0.4 [facility] x10(3)/[facility] LABORATORY Basophils % 0.5 % [facility] LABORATORY Basophils Abs 0.0 0.0 - 0.1 [facility] x10(3)/[facility] LABORATORY Immature Gran % 0.90 [...] Gran Abs 0.05 (H) 0.00 - 0.04 x10(3)/[facility] LABORATORY Specimen Anatomical Collection Method Collection Time Receive d Time (Source) Location / / Volume Laterality Blood 01/30/2022 2:12 PM 2 2:37 EDT PM EDT Resulting Agency Comment Spec In Lab Eddi Elizabeth Jr., MD HEMATOLOGY ORDERABLES Performing Organization Address City/State/ZIP Code Phon e Number [place] [phone] HOSPITAL LAB[address]ORY [address] (ABNORMAL) Hemogram (01/30/2022 2:12 PM EDT) Analysis Performed At Patho logist Time Signature WBC 5.5 4.0 - 9.5 [facility] x10(3)/[facility] LABORATORY RBC 4.30 (L) 4.58 - [facility] 5.54 [facility] x10(6)/[facility] LABORATORY Hemoglobin 12.7 (L) 13.7 - [facility] g/dL [facility] LABORATORY Hematocrit 39.4 (L) 40.5 - [facility] 48.5 % [facility] LABORATORY MCV 91.6 82.9 - [facility] 93.1 fL [facility] LABORATORY MCH 29.5 27.5 - [facility] 32.1 pg [facility] LABORATORY MCHC 32.2 32.0 - [facility] 35.7 g/dL [facility] LABORATORY Platelets 172 145 - 357 [facility] x10(3)/[facility] LABORATORY RDWSD 54.5 (H) 36.0 - [facility] 45.0 [facility] LABORATORY RDWCV 16.4 (H) 11.4 - [facility] 13.8 % [facility] LABORATORY MPV 9.2 7.6 - 12.9 [facility] LABORATORY nRBC % Auto 0.0 % [facility] LABORATORY nRBC Abs Auto 0.000 0.000 - [facility] 0.000 [facility] x10(3)/[facility] LABORATORY Specimen Anatomical Collection Method Collection Time Receive d Time (Source) Location / / Volume Laterality Blood 01/30/2022 2:12 PM 2 2:37 EDT PM EDT Resulting Agency Comment Spec In Lab Eddi Elizabeth Jr., MD HEMATOLOGY ORDERABLES Performing Organization Address City/State/[place] [address] (ABNORMAL) Basic Metabolic Panel (non-fasting) (01/30/2022 2:12 PM EDT) athologist Signature Glucose Lvl 163 65 - 199 [facility] mg/dL [facility] LABORATORY Comment: Diabetes: >=200 mg/dL plus symp toms BUN 30 (H) 10 - 20 mg/dL [facility] LABORATORY Creatinine 1.47 0.80 - 1.50 mg/dL [facility] LABORATORY Sodium 140 135 - 145 mmol/L [facility] LABORATORY Potassium 4.2 3.5 - 5.0 mmol/L [facility] LABORATORY Calcium 9.2 8.5 - 10.5 mg/dL [facility] LABORATORY Estimated GFR 49 (L) >=60 [...] Nobles MD CHEMISTRY ORDERABLES Performing Organization Address City/[facility]/ZIP Code Phon e Number [address] POCT Glucose (01/30/2022 1:41 PM EDT) athologist Signature POC Glucose 148 65 - 199 [facility] mg[facility]dL [facility] LABORATORY Comment: Supplemental ranges: <140 mg/dL before meals <180 mg/dL all other times of the day Specimen Anatomical Collection Method Collection Time Receive d Time (Source) Location / / Volume Laterality Blood 01/30/2022 1:41 PM 2 1:41 EDT PM EDT Vitaliy Nobles MD POINT OF CARE TEST ORDERABLE S Performing Organization Address City/[facility]/ZIP Code Phon e Number [address] POCT Glucose (01/30/2022 10:48 AM EDT) athologist Signature POC Glucose 193 65 - 199 [facility] mg/dL [facility] [...] Address City/State/[place] [address] EKG 12 Lead (01/30/2022 10:33 AM EDT) Component Value Ref Range Test Analysis Performed Pathologis t Method Time At Signature Ventricular rate 64 BPM MUSE SYSTEM Atrial Rate 64 BPM MUSE SYSTEM P-R Interval 162 ms MUSE SYSTEM QRS Duration 94 ms MUSE SYSTEM Q-T Interval 422 ms MUSE SYSTEM QTC Calculated 435 ms MUSE SYSTEM (Bezet) Calculated P [place] 41 degrees MUSE SYSTEM Calculated R [place] -27 degrees MUSE SYSTEM Calculated T [place] 104 degrees MUSE SYSTEM INTERPRETATION Normal sinus rhythm MUSE SYSTEM Anterolateral infarct (cited on or before 09-DEC-2021) Abnormal ECG When compared with ECG of 10-DEC-2021 11:17, No significant change was found Confirmed by Gary Perez ([id number]) on 01/30/2022 5:57:5 2 PM Specimen Anatomical [...] ED T ?[facility] ? Cardiac Cathete rization/Intervention Report ? Patient Name: Kushal, Don E. ? Procedure Date: 01/30/2022 ? A #: [id number] ? Primary Physician: Nobles, Vitaliy P ? Case #: [id number] ? File Name: [id number] ? Catheterization Order Number: [id number] ? [facility] ? Final Report [place], [place] ? Patient Name: ? Don E. Stewa rt ? ID#: ?[id number] ? : ?1945 ? Procedure Date: ? [...] Urgent. The indication for ?the director of laboratory operations visit is stable kn own CAD. Chest [...] guiding catheter an d a 3.[address] [facility] [address] ??20 Mhz ?using Manual pullback. ??Imagin [...] ?? A premounted 2.00 x 26 mm [place] Eagle (TUCKER) ? was deployed wi a maximum [...] Wedelivered along 2.0 x 26 mm ORION Eagle ? TUCKER stent and p ositioned it [...] prior to arrival in the director of laboratory operations. ?Recommended anti-platelet/anti- thrombotic regimen: ?Continue aspirin 81 [...] ?modification of this regimen. C onsult [facility] Interventional Cardiology for ?questions. ?The [...] using a 2.0 x 26 mm ORION Eagle TUCKER stent. ?This completes the revasculariz ation [...] MD CARDIAC CATH ORDERABLES Performing Organization Address City/[facility]/ZIP Code Phon e Number CARDIOMAC SYSTEM (ABNORMAL) POCT Glucose (01/30/2022 9:04 AM EDT) P athologist Signature POC Glucose 212 (H) 65 - 199 [facility] mg/dL [facility] LABORATORY Comment: Supplemental ranges: <140 mg/dL before meals <180 mg/dL all other times of the day Specimen Anatomical Collection Method Collection Time Receive d Time (Source) Location / / Volume Laterality Blood 01/30/2022 9:04 AM 2 9:04 EDT AM EDT Vitaliy Nobles MD POINT OF CARE TEST ORDERABLE S Performing Organization Address [facility] [place] [address] (ABNORMAL) POCT Glucose (01/30/2022 [...] CARE TEST ORDERABLE S Performing Organization Address 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 ASHD (arteriosclerotic heart disease) Coronary atherosclerosis of unspecified type of vessel, [place] or graft ASCVD (arteriosclerotic cardiovascular d isease) Unspecified cardiovascular disease documented in this encounter Admitting Diagnoses Diagnosis CAD (coronary artery disease) Coronary atherosclerosis of unspecified type of vessel, [place] or graft documented in this encounter Administered [...] Procedure), Routine niCARdipine (Cardene) (100 mcg/mL) dilution (INORGANIC CHEMICAL TECHNICIAN) (CANCELED ) 0927 (Given - Provider: Vitaliy [...] (Intra-Procedure) documented in this encounter Care Teams Maintenance Mechanic Relationship Specialty Start Date End Date Lovely Vicente MD PCP - General 04/16/[address] [place] [address] documented as of this encounter
--- OUTSIDE RECORDS SUMMARY | 2022-03-06 08:05 | XMS_ITS | Encounter Summary ---
:1945 Author Organization [facility] [place] [address] Care Team Providers Name Role Phone Lovely Vicente MD Primary Care Provider Reason for Visit Auth/Cert Specialty Diagnoses / Procedures Referred By Contact Refer red To Contact Diagnoses ASCVD (arteriosclerotic cardiovascular disease) [I25.10] Vitaliy Nobles MD [facility] Procedures PRO PERC TRLUML CORONARY STENT W/ANGIO ONE ART/BRANCH CARDIAC CATHETERIZATION STENT PLACEMENT-SINGLE MAJOR CORONARY ARTERY OR BRANCH [facility] [place] [address] Referral ID Status Reason Start Date Expiration Date Visits Requ ested Visits Authorized [id number] 1 1 Encounter Details Date Type Department Care Team Description 01/30/2022 Laboratory Lab 3L Katalina ASCVD (arterios clerotic Appointment [facility] cardiovas cular disease) [place] [address] Social History Tobacco Use Types Packs/Day Years [...] Nobles MD [facility] CARDIOLOGY [place], [place] [address] (Wo rk) 06/10/2022 Office Visit Dermatology Laura Scherer MD [facility] DR [address] RD-DERMAT OGY [place], [place] [address] (Wo rk) documented as of [...] (ABNORMAL) Differential, Automated (01/30/2022 7:19 AM EDT) [facility] gist Method Time Signature Neutrophils % 77.9 % [facility] LABORATORY Neutr Abs (ANC) 5.31 1.70 - [facility] 6.10 [facility] x10(3)/[facility] LABORATORY Lymphocytes % 12.0 % [facility] LABORATORY Lymphocytes Abs 0.8 (L) 0.9 - 3.2 [facility] x10(3)/[facility] LABORATORY Monocytes % 8.1 % [facility] LABORATORY Monocyte Abs 0.6 0.3 - 0.9 [facility] x10(3)/[facility] LABORATORY Eosinophils % 0.4 % [facility] LABORATORY Eosinophils Abs 0.0 0.0 - 0.4 [facility] x10(3)/[facility] LABORATORY Basophils % 0.6 % [facility] LABORATORY Basophils Abs 0.0 0.0 - 0.1 [facility] x10(3)/[facility] LABORATORY Immature Gran % 1.00 % [facility] LABORATORY Comment: Immature granulocytes(IG's)percentage an d absolute count will include metamyelocytes, myelocytes, and promyelo cytes. Blood smears from CBCs yielding IG's will be scanned manually for concor dance. If this scan disagrees with the automated IG or if promyelocytes are not ed, a manual differential will be performed. Melisa Gran Abs 0.07 (H) 0.00 - 0.04 x10(3)/[facility] LABORATORY Specimen Anatomical Collection Method Collection Time Receive d Time (Source) Location / / Volume Laterality Blood 01/30/2022 7:19 AM 7:21 EDT AM EDT Resulting Agency Comment Spec In Lab Zulma BROWN HEMATOLOGY ORDERABLES Performing Organization Address City/State/ZIP Code Phon e Number [place] [phone] HOSPITAL LABORATORY Drive (ABNORMAL) Hemogram (01/30/2022 7:19 AM EDT) Analysis Performed At Patho logist Time Signature WBC 6.8 4.0 - 9.5 [facility] x10(3)/[facility] LABORATORY RBC 4.32 (L) 4.58 - [place] 5.54 [facility] x10(6)/[facility] LABORATORY Hemoglobin 13.0 (L) 13.7 - [facility] 16.[facility] g/dL [facility] LABORATORY Hematocrit 39.8 (L) 40.5 - [facility] RYAN 48.5 % [facility] LABORATORY MCV 92.1 82.9 - [facility] RYAN 93.1 [facility] LABORATORY MCH 30.1 27.5 - [place] [facility] 32.1 pg [facility] LABORATORY MCHC 32.7 32.0 - [facility] 35.7 g/dL [facility] LABORATORY Platelets 172 145 - 357 [facility] x10(3)/[facility] LABORATORY RDWSD 54.5 (H) 36.0 - [place] 45.0 [facility] LABORATORY RDWCV 16.2 (H) 11.4 - [facility] RYAN 13.8 % [facility] LABORATORY MPV 9.0 7.6 - 12.9 [facility] LABORATORY nRBC % Auto 0.0 % [facility] LABORATORY nRBC Abs Auto 0.000 0.000 - [facility] 0.000 [facility] x10(3)/[facility] LABORATORY Specimen Anatomical Collection Method Collection Time Receive d Time (Source) Location / / Volume Laterality Blood 01/30/2022 7:19 AM 7:21 EDT AM EDT Resulting Agency Comment Spec In Lab Zulma BROWN HEMATOLOGY ORDERABLES Performing Organization Address City/State/[place] [address] (ABNORMAL) Basic Metabolic Panel (non-fasting) (01/30/2022 7:19 AM EDT) P athologist Signature Glucose Lvl 237 (H) 65 - 199 [facility] mg/dL [facility] LABORATORY Comment: Diabetes: >=200 mg/dL plus symp toms BUN 34 (H) 10 - 20 mg/dL [facility] LABORATORY Creatinine 1.45 0.80 - 1.50 mg/dL [facility] [...] 107 mmol/L [facility] LABORATORY CO2 30 22 - 31 mmol/L [facility] LABORATORY Anion Gap 11 5 - 15 mmol/L [facility] LABORATORY Calcium 9.5 8.5 - 10.5 mg/dL [facility] LABORATORY Estimated GFR 50 (L) >=60 mL/min/1.73 m?? [facility] [...] Organization Address City/State/ZIP Code Phon e Number [place] [phone] HOSPITAL LAB[address] documented in this encounter Visit Diagnoses Diagnosis ASCVD (arteriosclerotic cardiovascular d isease) Unspecified cardiovascular disease documented in this encounter Care Teams Meeting Specialist Relationship Specialty Start Date End Date Lovely Vicente MD PCP - General 04/16/[address] [place] [address] documented as of this encounter
--- OUTSIDE RECORDS SUMMARY | 2022-03-06 08:05 | XMS_ITS | Encounter Summary ---
:1945 Author Organization [facility] [address] Care Team Providers Name Role Phone Lovely Vicente MD Primary Care Provider Encounter Details Date Type Department Care Team Description 12/25/2021 Laboratory Appointment Lab 3L [facility] systolic [facility] [place] [id number] Social History Tobacco Use Types Packs/Day Years [...] MD [facility] CARDIOLOGY [place], [place] [address] (Wo rk) 06/10/2022 Office Visit Dermatology Laura Scherer MD [facility] DR TEJA GR-DERMAT OLOGY [place], [place] [address] (Wo rk) documented as [...] (ABNORMAL) Differential, Automated (12/25/2021 7:46 AM EDT) [facility] Method Time Signature Neutrophils % 82.6 % [facility] LABORATORY Neutr Abs (ANC) 9.37 (H) 1.70 - [facility] 6.10 [facility] x10(3)/[facility] L LABORATORY Lymphocytes % 7.1 % [facility] LABORATORY Lymphocytes Abs 0.8 (L) 0.9 - 3.2 [facility] x10(3)/[facility] LABORATORY Monocytes % 8.8 % [facility] LABORATORY Monocyte Abs 1.0 (H) 0.3 - 0.9 [facility] x10(3)/[facility] LABORATORY Eosinophils % 0.4 % [facility] LABORATORY Eosinophils Abs 0.0 0.0 - 0.4 [facility] x10(3)/[facility] LABORATORY Basophils % 0.4 % [facility] LABORATORY Basophils Abs 0.0 0.0 - 0.1 [facility] x10(3)/[facility] LABORATORY Immature Gran [...] Organization Address City/State/[place] [address] (ABNORMAL) Hemogram (12/25/2021 7:46 AM EDT) Analysis Performed At Patho logist Time Signature WBC 11.4 (H) 4.0 - 9.5 [facility] x10(3)/[facility] LABORATORY RBC 4.23 (L) 4.58 - [facility] 5.54 [facility] x10(6)/[facility] LABORATORY Hemoglobin 12.3 (L) 13.7 - [facility] 16.5 g/dL [facility] LABORATORY Hematocrit 37.7 (L) 40.5 - [facility] 48.5 % [facility] LABORATORY MCV 89.1 82.9 - [facility] 93.1 [facility] LABORATORY MCH 29.1 27.5 - [facility] 32.1 pg [facility] LABORATORY MCHC 32.6 32.0 - [facility] 35.7 g/dL [facility] LABORATORY Platelets 215 145 - 357 [facility] x10(3)/[facility] LABORATORY RDWSD 49.8 (H) 36.0 - [facility] RYAN 45.0 [facility] LABORATORY RDWCV 15.2 (H) 11.4 - [facility] RYAN 13.8 % [facility] LABORATORY MPV 9.2 7.6 - 12.9 [facility] LABORATORY nRBC % Auto 0.0 % [facility] LABORATORY nRBC Abs Auto 0.000 0.000 - [facility] RYAN 0.000 [facility] x10(3)/[facility] LABORATORY Specimen Anatomical Collection Method Collection Time Receive d Time (Source) Location / / Volume Laterality Blood 12/25/2021 7:46 AM 2 8:01 EDT AM EDT Resulting Agency Comment Spec In Lab Liz BROWN HEMATOLOGY ORDERABLES Performing Organization Address City/State/[place] [address] (ABNORMAL) Basic Metabolic Panel (non-fasting) (12/25/2021 7:46 AM EDT) P athologist Signature Glucose Lvl 272 (H) 65 - 199 [facility] mg/dL [facility] LABORATORY Comment: Diabetes: >=200 mg/dL plus symp toms BUN 62 (H) 10 - 20 mg/dL [facility] LABORATORY Creatinine 1.81 (H) 0.80 - 1.50 mg/dL [facility] LABORATORY Sodium 134 (L) 135 - 145 mmol/L [facility] LABORATORY Potassium 4.9 3.5 - 5.0 mmol/L [facility] [...] 15 mmol/L [facility] LABORATORY Calcium 9.4 8.5 - 10.5 mg/dL [facility] LABORATORY Estimated GFR 36 (L) [...] Organization Address City/State/[place] [address] (ABNORMAL) pro-Brain Natriuretic Peptide (12/25/2021 7:46 AM EDT) P athologist Signature ProBNP 1,380 (H) <=124 [place] DAVIS pg/mL [facility] LABORATORY Specimen Anatomical Collection Method Collection Time Receive d Time (Source) Location / / Volume Laterality Blood 12/25/2021 7:46 AM 2 8:01 EDT AM EDT Resulting Agency Comment Spec In Lab Zulma Plunkett MD CHEMISTRY ORDERABLES Performing Organization Address City/State/[place] [address] documented in this encounter Visit Diagnoses Diagnosis Chronic systolic heart failure documented in this encounter Care Teams Field Artillery Operations Man Relationship Specialty Start Date End Date Lovely Vicente MD PCP - General 04/16/[address] [place] [address] documented as of this encounter
--- OUTSIDE RECORDS SUMMARY | 2022-03-06 08:05 | XMS_ITS | Encounter Summary ---
:1945 Author Organization [facility] [place] [address] Care Team Providers Name Role Phone Lovely Vicente MD Primary Care Provider Encounter Details Date Type Department Care Team Description 12/12/2021 Telephone [place]iology [place] [facility] [place] [address] Social History Tobacco Use Types Packs/Day [...] - 12/12/2021 11:36 AM EDT RTC to [employer] regarding pharmacists questions as to whether the [...] [facility] ER [address] [place], [place] [address] (Wo rk) 06/10/2022 Office Visit Dermatology Laura Scherer MD [facility] [address] [place], [place] [address] (Wo rk) documented as of this encounter Visit Diagnoses Not on filedocumented in this encounter Care Teams Service Dispatcher Relationship Specialty Start Date End Date Lovely Vicente MD PCP - General 04/16/[address] [place] [address] documented as of this encounter
--- OUTSIDE RECORDS SUMMARY | 2022-03-06 08:05 | XMS_ITS | Encounter Summary ---
:1945 Author Organization [facility] [place] [address] Care Team Providers Name Role Phone Lovely Vicente MD Primary Care Provider Encounter Details Date Type Department Care Team Description 12/24/2021 Telephone Public Health at [facility] [place] [address] Social History Tobacco Use Types Packs/Day [...] [facility] ER [address] [place], [place] [address] (Wo rk) 06/10/2022 Office Visit Dermatology Laura Scherer MD [facility] [address] [place], [place] [address] (Wo rk) documented as of this encounter Visit Diagnoses Not on filedocumented in this encounter Care Teams Gantry Rigger Relationship Specialty Start Date End Date Lovely Vicente MD PCP - General 04/16/[address] [place] [address] documented as of this encounter
--- OUTSIDE RECORDS SUMMARY | 2022-03-06 08:05 | XMS_ITS | Encounter Summary ---
:1945 Author Organization [facility] [place] [address] Care Team Providers Name Role Phone Lovely Vicente MD Primary Care Provider Reason for Visit Reason Onset Date Comments Advice Only 01/28/2022 Encounter Details Date Type Department Care Team Description 01/28/2022 Telephone Cardiology [place] [facility] [place] Chitra Angela, java software [place] [address] Social History Tobacco Use Types Packs/Day [...] Fatima assists patient with medications. Number for engineering lab technician scheduling given and she will call them to verify this information Meds reviewed. As per our form from engineering lab technician Eliquis hold for 48 hours prior. [...] MD [facility] [address] [place], [place] [address] (Wo rk) 06/10/2022 Office Visit Dermatology Laura Scherer MD [facility] [address] [place], [place] [address] (Wo rk) documented as of this encounter Visit Diagnoses Not on filedocumented in this encounter Care Teams Bagging Machine Operator Relationship Specialty Start Date End Date Lovely Vicente MD PCP - General 04/16/[address] [place] [address] documented as of this encounter
--- OUTSIDE RECORDS SUMMARY | 2022-03-06 08:05 | XMS_ITS | Encounter Summary ---
:1945 Author Organization [facility] [place] [address] Care Team Providers Name Role Phone Lovely Vicente MD Primary Care Provider Reason for Referral Diagnostic Test (Routine) - New Request Specialty Diagnoses / Procedures Referred By Contact Refer red To Contact Cardiology Diagnoses Chronic systolic heart failure Liz Carrera PA [facility] Non-Inv Card Lab Procedures Echocardiogram Transthoracic [facility] [place] [address] [place] [address] Fax: Referral ID Status Reason Start Expiration Visits Visits Date Date Requested Authorized [id number] New Request Specialty 02/19/2022 02/19/2023 1 1 Service Requested Encounter Details Date Type Department Care Team Description 02/19/2022 Office Visit Cardiology [place] [facility] Liz Carrera, Chronic systolic heart [facility] [place] [address] Cardiology Dept [phone] [place], [place] [address] Social History Tobacco Use Types [...] As per DC Summary - Admitted to [facility] on 12/08/21, transferred from [facility], respiratory distress with hypoxia 86% on [...] mg PO daily in place of Lasix. [place] is new for him and he will [...] his PCP. He started [facility] in [facility]. Monitored vitals/trends at home: Weight 191-194 [...] Antiplatelet (DAPT) Recommendations above ? TTE from [facility] 12/08/21 ?? 07/28/2019 Echocardiogram: SUMMARY: 1. [...] present. 07/07/2019 - 07/21/2019 [employer] Super[employer] The patient had a minimum heart rate [...] 12.5 mg daily 6. Post-op atrial fibrillation [id number] (CHF, HTN, DM, vascular disease, thromboembolism) Eliquis 7. PAD 08/06/2017: Right 1st, 2nd, 3rd toe amputation 08/11/2017: Left??femoral arterial access, RLE??angiogram, Balloon angioplasty of R PT 10/25/2017: right popliteal-pedal bypass at [facility] 8. Hypothyrodism S/p thyroidectomy for goiter [...] MD [facility] [address] [place], [place] [address] (Wo rk) 06/10/2022 Office Visit Dermatology Laura Scherer MD [facility] [address] [place], [place] [address] (Wo rk) Scheduled Orders Name Type Priority Associated Order Schedule Diagnoses Echocardiogram Echocardiography Routine Chronic systolic Expec vlad: Transthoracic heart failure 05/22/2022 (Approximate), Expires: 11/21/2022 documented as of this encounter Results (ABNORMAL) Basic Metabolic Panel (non-fasting) (02/19/2022 8:06 AM EDT) athologist Signature Glucose Lvl 139 65 - 199 [facility] mg/dL [facility] Comment: Diabetes: >=200 mg/dL plus symp toms BUN 31 (H) 10 - 20 mg/dL [facility] Creatinine 1.53 (H) 0.80 - [...] mmol/L [facility] CO2 31 22 - 31 mmol/L [facility] Anion Gap 11 5 - 15 mmol/L [facility] Calcium 9.7 8.5 - 10.5 mg/dL [facility] Estimated GFR 47 (L) >=60 mL/min/1.73 m?? [facility] [...] Organization Address City/State/[place] [address] (ABNORMAL) pro-Brain Natriuretic Peptide (02/19/2022 8:06 AM EDT) P athologist Signature ProBNP 984 (H) <=449 pg/mL [facility] Specimen Anatomical Collection Method Collection Time Receive d Time (Source) Location / / Volume Laterality Blood 02/19/2022 8:06 AM 8:09 EDT AM EDT Resulting Agency Comment Spec In Lab Zulma Plunkett MD CHEMISTRY ORDERABLES Performing Organization Address City/State/[place] [address] documented in this encounter Visit Diagnoses Diagnosis Chronic systolic heart failure documented in this encounter Care Teams Glass Designer Relationship Specialty Start Date End Date Lovely Vicente MD PCP - General 04/16/[address] [place] [address] documented as of this encounter
--- OUTSIDE RECORDS SUMMARY | 2022-03-06 08:06 | XMS_ITS | Encounter Summary ---
:1945 Author Organization [employer] [place] [address] Care Team Providers Name Role Phone Lovely Vicente MD Primary Care Provider Reason for Referral Consultation (Routine) - Closed Specialty Diagnoses / Referred By Contact Referred To Contact Procedures Cardiac Rehabilitation Diagnoses Acute HFrEF (heart failure with reduced ejection fraction) Janneth Padilla, Cardiac Rehab, [address] [place] CARDIOLOGY DEPT. [id number] [place] [address] Referral ID Status Reason Start Date Expiration Date Visits V isits Requested Authorized [id number] Closed Consult, 12/12/2021 12/12/2022 36 36 Test & Treat Reason for Visit Auth/Cert Specialty Diagnoses / Procedures Referred By Contact Refer red To Contact Diagnoses NSTEMI Procedures emerg ipi Referral ID Status Reason Start Date Expiration Date Visits Requ ested Visits Authorized [id number] 1 1 Encounter Details Date Type Department Care Team Description 12/08/2021 - Hospital Encounter Intermediate Cardiac Iker Cuevas MD [facility] [place] [address] Non-ST elevation myocardial infarction ( NSTEMI); 12/12/2021 Care Unit Ifeanyi Rene MD [facility] [place] [address] ST elevation myocardial infarction (STEM I), unspecified artery; [facility] Acute HFr EF (heart failure with reduced ejection fraction) [place] [address] Social History Tobacco Use Types Packs/Day Years [...] Don Fatima Patient Age: 76 y.o. Language: Upper Sorbian Race: White Ethnicity: Not nor Admit date: [...] Peter PA-C Kelly LaFlamme PA-C Cardiovascular Medicine [phone] Discharge Diagnoses (Hospital Problems) and Secondary Diagnoses [...] 3.75 guiding catheter and a 3.5 Fr [place] [employer] [place] 20 Mhz using Manual pullback. Imaging was successful. Image quality was good. The ostial LCX showed moderate diffuse atherosclerotic plaque with scattered three quadrant calcification. Measurements were performed after pre-dilation. Post Intervention: The stent was well expanded and apposed. Intravascular Ultrasound was performed in the distal LM using a 7 Fr EBU 3.75 guiding catheter and a 3.5 Fr [place] 20 Mhz using Manual pullback. Imaging was [...] may require modification of this regimen. Consult [facility] Interventional Cardiology for questions. The 1 year [...] vascular congestion and cardiomegaly. ?? TTE from [facility] 12/08/21 ? Prior Cardiac Studies: TTE [...] prior thyroidectomy in 2012 who presented to [facility] with 1 week progressing breathlessness with [...] 03/2021 with Liz Poole PA-C. ?? At [facility], respiratory distress with hypoxia 86% on [...] mg PO daily in place of lasix. [place] is new for him and he will have a BMP checked on 12/[address] Cuevas spoke with the patient's and told her that him drinking too much water and diet drinks did not cause his RI. This is what his thought was the [...] to be ~$24/mo; affordable per patient. Post [facility] he was started on Eliquis. He [...] appointments: During 8am-5pm Wednesday through Wednesday call [phone] to speak with a nurse in the cardiology clinic All other times call [phone] and ask to speak to the cabin service agent franchise field consultant. Return to work: One week Driving: No driving for 48 hours after catheterization. Follow up Appointments: PCP Lovely Vicente MD [phone] to see patient at the end of December for annual check up. Patient to see Dr. Lorenzana at 1120 am at December 19 for a post hospital check up. Awning Hanger Helper Dr. De Oliveira to see you in [facility]. Left a message for office to set a date and time. Please call [phone] Nobles to see the patient for a same day cath in 2-3 weeks from now. Office to call with a date and time. For questions please call [phone] Home oxygen therapy: N/A Arrangements for VNA/home care: none Future Appointments and Orders Future Orders Complete By Expires Basic Metabolic Panel (non-fasting) [LAB15 Custom] 12/19/2021 (Approximate) 12/12/2022 Process Instructions: INCLUDES: Calcium, BUN, Creat, GFR, Glucose, Lytes Scheduling Instructions: Comments: Questions: Referral to Cardiac Rehab [GBZ528 Custom] As directed Process Instructions: If no [...] appointments: During 8am-5pm Wednesday through Wednesday call [phone] to speak with a nurse in the cardiology clinic All other times call [phone] and ask to speak to the cabin service agent franchise field consultant. Return to work: One week Driving: No driving for 48 hours after catheterization. Follow up Appointments: PCP Lovely Vicente MD [phone] to see patient at the end of December for annual check up. Patient to see Dr. Lorenzana at 1120 am at December 19 for a post hospital check up. Awning Hanger Helper Dr. De Oliveira to see you in [facility]. Left a message for office to set a date and time. Please call [phone] Nobles to see the patient for a same day cath in 2-3 weeks from now. Office to call with a date and time. 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 Tolerated procedure well. Home today at 11 [...] TROPONINT 1.13* 0.92* 0.89* Pertinent Radiographic/Diagnostic Results: R/[facility] 12/10/21 Hemodynamics: Right Heart Pressures Resting: [...] pulmonary vascular congestion and cardiomegaly. TTE from [facility] 12/08/21 Prior Cardiac Studies: TTE 07/28/2019 [...] with MD Janneth Neville PA 12/12/2021 Pager [phone] Associated attestation - Ifeanyi Truong MD - [...] NADINE notified. See flowsheets for I&O. Call cablelo within reach. Pt slept between care. 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 Known CAD with hx of RI and CABG. DM. MARIA VICTORIA.ICM. ??? ASHD [...] patent THOMPSON-LAD and RPDA 95% lesion. Underwent TCUKER to prox LCX with plans for staged procedure to RPDA as outpatient. He was given Lasix 80mg IV x1 in label designer. Tolerated procedure well. Review of Systems: Review [...] TROPONINT 1.13* 0.92* 0.89* Pertinent Radiographic/Diagnostic Results: /[facility] 12/10/21 Hemodynamics: Right Heart Pressures Resting: [...] pulmonary vascular congestion and cardiomegaly. TTE from [facility] 12/08/21 Prior Cardiac Studies: TTE 07/28/2019 [...] his questions. Iker Cuevas MD [facility] Total time spent on review of records prior to visit, face to face time with patient during visit, documentation, and coordination of care with other clinicians: 25 minutes. . Iker Cuevas MD - 12/10/2021 12:30 PM EDT Images from the original note were not included. 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 Admitted with 2 days of sob, hypoxemia, and + trop. Known CAD with hx of RI and CABG. DM. MARIA VICTORIA.ICM. ??? ASHD [...] was given Lasix 80mg IV x1 in label designer. Tolerated procedure well. Review of Systems: Review [...] ??? heparin (porcine) infusion 1,600 Units/hr (12/09/21 2503) PRN Meds:ipratropium-albuteroL, senna-docusate, bisacodyL, sodium chloride 0.9 [...] TROPONINT 1.13* 0.92* 0.89* Pertinent Radiographic/Diagnostic Results: R/[facility] 12/10/21 Hemodynamics: Right Heart Pressures Resting: [...] pulmonary vascular congestion and cardiomegaly. TTE from [facility] 12/08/21 Prior Cardiac Studies: TTE 07/28/2019 [...] given pictures. Iker Cuevas MD [facility] Total time spent on review of records prior to visit, face to face time with patient during visit, documentation, and coordination of care with other clinicians: 35 minutes. Iker Cuevas MD - 12/09/2021 7:28 AM EDT Images from the original note were not included. 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 Admitted with 2 days of sob, hypoxemia, and + trop. Known CAD with hx of RI and CABG. DM. MARIA VICTORIA.ICM. ??? ASHD [...] pulmonary vascular congestion and cardiomegaly. TTE from [facility] 12/08/21 Prior Cardiac Studies: TTE 07/28/2019 [...] Discussed with MD Migdalia Peter PA-C Pager #[phone] 12/09/2021 Cardiology Attending Note I have seen and examined the patient. I agree with the findings above. Developed CHF early this am despite getting more iv lasix last evening. Feeling better now. INR > 2. Lungs still wet at base. Echo at [facility] showed EF 35% with mild mod MR slightly lower than last value here. -vit K 2.5 orally to facilitate correction of INR- this will take 12-24 hours to take effect -furosemide 80 mg iv now -postpone right and left heart cath until tomorrow given INR and ADHF -increase statin to achieve LDL < 70 -CPAP tonight Iker Cuevas MD [facility] Total time spent on review [...] + trop. Known CAD with hx of RI and CABG. DM. MARIA VICTORIA.ICM. ??? ASHD [...] prior thyroidectomy in 2012 who presented to [facility] with 1 week progressing breathlessness with [...] visit 03/2021 with Liz Poole PA-C. At [facility], respiratory distress with hypoxia 86% on [...] SETUP performed by Manny Mcknight MD at [facility] OR ??? PRO AMPUTATION FOOT, TRANSMETATARSAL Right 08/09/2017 AMPUTATION, TRANSMETATARSAL (WRVU 12.71) performed by Yonathan Smith MD at [facility] OR ??? PRO CABG, ARTERIAL, SINGLE N/A 07/07/2017 @CABG, USING ARTERIAL GRAFT;SINGLE ARTERIAL GRAFT (WRVU 33.75) performed by Yuan Retana MD at [facility] OR ??? PRO CABG, ARTERY-VEIN, TWO N/A 07/07/2017 @CABG, TWO VENOUS GRAFTS & ARTERIAL GRAFT (WRVU 7.93) performed by Yuan Retana MD at [facility] OR ??? PRO COLONOSCOPY, REMV LESN, SNARE 01/16/2014 COLONOSCOPY, POLYPECTOMY, REMOVAL LESION BY SNARE performed by Nohemi Jaimes MD at [facility] ENDOSCOPY ??? PRO DRESSING CHANGE UNDER ANESTHESIA Right 08/11/2017 (MSURG) DRESSING CHANGE (FOR OTHER THAN IVAN) UNDER ANES. (WRVU 0.86) performed by Lamar Smith MD at [facility] OR ??? PRO ENDOSCOPY W/VIDEO-ASST VEIN HARVEST, CABG Right 07/07/2017 ENDOSCOPIC HARVEST VEIN(S) FOR CABG (WRVU 0.31) performed by Yuan Retana MD at [facility] OR ??? PRO THYROIDECTOMY 03/28/2013 [...] (H) 65 - 199 mg/dL Labs at [facility] 12/08/2021-troponin I 8004 (UN L <60), [...] Monitor for ADRs. Trend troponins. Admission EKG. [facility] 12/09; consented. TTE. Telemetry monitoring, daily [...] code #Diet-carb control; n.p.o. after midnight for [facility] #DVT prophy- heparin infusion #GI prophy- PPI Discussed with MD Morgan Peter PA-C APP2 pager [phone] 12/08/2021 Cardiology Attending Note I have seen [...] is type 1 due to graft or klamath coronary stenosis vs acute injury from CHF. 3. PAF: currrently in NSR. Have replaced warfarin with heparin 4. PAD: stable 5. DM: stable 6. CKD: will monitor and minimize contrast. Pt very appreciative of Dr. Yuan Retana's care in 2018. Will let him know patient is here. Iker Cuevas MD [facility] documented in this encounter Miscellaneous [...] Type: *No Product type* / Secondary Insurance: [employer] [place] Prescription Coverage: Yes This plan was formulated [...] cath without complications. Migdalia Parker PA-C Pager #[phone] 12/10/2021 Initial Assessments - Nick Georges RN [...] COVID test: Lab Results Component Value Date [id number] Not Detected 12/08/2021 Past medical History: Past [...] spouse would be surrogate decision maker per [place] surrogate decision making law. (Only good for 180 days) Any patient receiving care at [facility] must abide by [place] law. The hierarchy for surrogate decision making [...] (i) The agent with financial power of patent attorney or a conservator appointed in accordance [...] - standard, cane - straight Home Address: [address] [place] [address] [place] [address] Social & Family Supports: All names listed below confirmed with patient as current and correct Extended Emergency Contact Information Primary Emergency Contact: Kisha Fatima Address: [address] [place] [address] [place] [address] [facility] Mobile Relation: Spouse Secondary Emergency Contact: Elba Swenson Address: [place], [place] [address] [place] [address] Mobile Relation: Child Current Care Provided by: [...] Type: *No Product type* / Secondary Insurance: [employer] [facility] Prescription Coverage: Yes Preferred Pharmacy: [facility] [id number] [address] - [place], [place] - [address] [place] [address] Status: Patient is a : unable to assess Primary Care Provider: Lovely Vicente MD [phone] Patient/Caregiver Goals of Treatment: Get out of here Potential Needs for Transition of Care: none Agency Referrals: none patient has used [facility] in the past Transportation: no concerns Transportation Anticipated: family or friend will provide Concerns to be Addressed: patient refuses services, discharge planning Assessment: Patient is admitted to APP2 Service pager [phone] for 76 y.o.??male??with h/o??CAD s/p 3vCABG (THOMPSON-LAD, [...] status on current unit. Nick Georges RN vp publisher development, Office of Care Management Pager: [phone] Brief Op Note - Vitaliy Nobles MD - 12/10/2021 8:31 AM EDT Images from the original note were not included. [facility] [place] [address] [address] CORONARY ANGIOGRAM AND PERCUTANEOUS CORONARY INTERVENTION REPORT Patient: Don Fatima : 1945 MR number: [id number] Date of Service: 12/10/2021 Biodiesel Processing Technician: Vitaliy Nobles MD Fellow: [place] [...] dictated or confirmed the above report. Vitaliy Noblse MD [facility] 12/10/2021 8:31 AM Consult [...] management and to provide a review of plate cleaner diabetes care. Diabetes History: Don Fatima has had diabetes for 10 years. He has been on insulin for the last several years andis managed by his PCP. Lives in [place], [place] with his . States that he [...] Hold] heparin (porcine) infusion 1,600 Units/hr (12/09/21 8137) PRN: [SEP Hold] ipratropium-albuteroL, [SEP Hold] senna-docusate, [...] 5 gm carb ratio for each meal) tile layer helper diabetes care: Medications - Outpatient treatment regimen recommendations pending based on the hospital course. Monitoring - continue BG tid ac & hs Diet - low fat/low carb diet Exercise - weight-bearing exercise 30 min/day, as tolerated Thank you for allowing us to provide care for your patient Desirae Johnie QUINONES Endocrinology Pager [phone] 70 minutes of this 80 minute visit [...] + trop. Known CAD with hx of RI and CABG. DM. MARIA VICTORIA.ICM. ??? ASHD [...] to remain on Med/Surg floor, please page [phone] for any further questions or concerns. LANDON [...] for further details. STEPHANIE Rebolledo 12/08/2021 Pager [phone] documented in this encounter Plan of Treatment Upcoming Encounters Date Type Specialty Care Team Description 03/26/2022 Office Visit Cardiology Nobles, Vitaliy P, MD [facility] CARDIOLOGY [place], [place] [address] (Wo rk) 06/10/2022 Office Visit Dermatology Laura Scherer MD [facility] [address]MAT [facility] [place] [address] (Wo rk) Scheduled Referrals Name [...] POC Glucose 215 (H) 65 - 199 [facility] mg/dL [facility] Comment: Supplemental ranges: <140 mg/dL before meals <180 mg/dL all other times of the day Specimen Anatomical Collection Method Collection Time Receive d Time (Source) Location / / Volume Laterality Blood 12/12/2021 7:42 AM 7:42 EDT AM EDT Ifeanyi Truong MD POINT OF CARE TEST ORDERABLE S Performing Organization Address City/State/Z[place] [address] (ABNORMAL) Differential, Automated (12/12/2021 4:51 AM EDT) athologist Signature Neutrophils % 75.4 % [facility] Neutr Abs (ANC) 5.95 1.70 - [facility] 6.10 [facility] x10(3)/[facility] LABORATORY Lymphocytes % 12.2 % [facility] Lymphocytes Abs 1.0 0.9 - 3.2 [facility] x10(3)/[facility] LABORATORY Monocytes % 9.5 % [facility] Monocyte Abs 0.8 0.3 - 0.9 [facility] x10(3)/[facility] LABORATORY Eosinophils % 1.8 % [facility] Eosinophils Abs 0.1 0.0 - 0.4 [facility] x10(3)/[facility] LABORATORY Basophils % 0.5 % [facility] Basophils Abs 0.0 0.0 - 0.1 [facility] x10(3)/[facility] LABORATORY Immature [...] Organization Address City/State/[place] [address] (ABNORMAL) Hemogram (12/12/2021 4:51 AM EDT) Analysis Performed At Patho logist Time Signature WBC 7.9 4.0 - 9.5 [facility] x10(3)/[facility] LABORATORY RBC 4.19 (L) 4.58 - [facility] 5.54 [facility] x10(6)/[facility] LABORATORY Hemoglobin 12.1 (L) 13.7 - [facility] 16.5 g/dL [facility] Hematocrit 36.7 (L) 40.5 - [facility] 48.5 % [facility] MCV 87.6 82.9 - [facility] 93.1 [facility] LABORATORY MCH 28.9 27.5 - [facility] 32.1 pg [facility] MCHC 33.0 32.0 - [facility] 35.7 g/dL [facility] Platelets 231 145 - 357 [facility] x10(3)/[facility] LABORATORY RDWSD 47.2 (H) 36.0 - [facility] 45.0 [facility] LABORATORY RDWCV 14.6 (H) 11.4 - [facility] 13.8 % [facility] MPV 9.5 7.6 - 12.9 [facility] nRBC % Auto 0.0 % [facility] nRBC Abs Auto 0.000 0.000 - [facility] 0.000 [facility] x10(3)/[facility] LABORATORY Specimen Anatomical Collection Method Collection Time Receive d Time (Source) Location / / Volume Laterality Blood 12/12/2021 4:51 AM 2 5:06 EDT AM EDT Resulting Agency Comment Spec In Lab Bijan Sun MD HEMATOLOGY ORDERABLES Performing Organization Address City/[facility]/ZIP [facility] [place] [address] (ABNORMAL) Prothrombin Time (12/12/2021 4:51 AM EDT) P athologist Signature PT 14.9 (H) 9.4 - 12.5 [facility] LABORATORY INR 1.3 [facility] Cuevas MD HEMATOLOGY ORDERABLES Performing Organization Address City/[facility]/ZIP Code Phon e Number [place] [id number] (ABNORMAL) BMP w/fasting Glucose (12/12/2021 4:51 AM EDT) P athologist Signature Glucose 152 (H) 65 - 99 [facility] Fasting mg/dL [facility] Comment: ?Fasting* Glucose Interpretive [...] Diabetes Mellitus, Position Statement from the [place] [employer]. ??Diabete s Care, Volume 33, [...] Cuevas MD CHEMISTRY ORDERABLES Performing Organization Address City/[facility]/[place] [address] Magnesium (12/12/2021 4:51 AM EDT) athologist Signature Magnesium 1.02 0.69 - 1.07 [facility] mmol/L [facility] Specimen Anatomical Collection Method Collection Time Receive d Time (Source) Location / / Volume Laterality Blood 12/12/2021 4:51 AM 2 5:06 EDT AM EDT Resulting Agency Comment Spec In Lab Iker Cuevas MD CHEMISTRY ORDERABLES Performing Organization Address City/[facility]/[place] [address] POCT Glucose (12/12/2021 3:43 AM EDT) athologist Signature POC Glucose 138 65 - 199 [facility] mg/dL [facility] Comment: Supplemental ranges: <140 mg/dL before meals <180 mg/dL all other times of the day Specimen Anatomical Collection Method Collection Time Receive d Time (Source) Location / / Volume Laterality Blood 12/12/2021 3:43 AM 2 3:43 EDT AM EDT Iker Cuevas MD POINT OF CARE TEST ORDERABLE S Performing Organization Address City/[facility]/ZIP Code Phon e Number [address] POCT Glucose (12/11/2021 11:44 PM EDT) athologist Signature POC Glucose 124 65 - 199 [facility] mg/dL [facility] Comment: Supplemental ranges: <140 mg/dL before meals <180 mg/dL all other times of the day Specimen Anatomical Collection Method Collection Time Receive d Time (Source) Location / / Volume Laterality Blood 12/11/2021 11:44 12/11/2021 PM EDT 11:44 PM EDT Iker Cuevas MD POINT OF CARE TEST ORDERABLE S Performing Organization Address City/State/[place] [address] (ABNORMAL) POCT Glucose (12/11/2021 8:12 PM EDT) P athologist Signature POC Glucose 200 (H) 65 - 199 [facility] R[facility]AN mg/dL [facility] Comment: Supplemental ranges: <140 mg/dL before meals <180 mg/dL all other times of the day Specimen Anatomical Collection Method Collection Time Receive d Time (Source) Location / / Volume Laterality Blood 12/11/2021 8:12 PM 2 8:12 EDT PM EDT Iker Cuevas MD POINT OF CARE TEST ORDERABLE S Performing Organization Address City/State/[place] [address] (ABNORMAL) POCT Glucose (12/11/2021 6:50 PM EDT) P athologist Signature POC Glucose 245 (H) 65 - 199 [facility] R[facility]AN mg/dL [facility] Comment: Supplemental ranges: <140 mg/dL before meals <180 mg/dL all other times of the day Specimen Anatomical Collection Method Collection Time Receive d Time (Source) Location / / Volume Laterality Blood 12/11/2021 6:50 PM 2 6:50 EDT PM EDT Iker Cuevas MD POINT OF CARE TEST ORDERABLE S Performing Organization Address City/State/[place] [address] (ABNORMAL) POCT Glucose (12/11/2021 4:00 PM EDT) P athologist Signature POC Glucose 383 (H) 65 - 199 [facility] mg/dL [facility] Comment: Supplemental ranges: <140 mg/dL before meals <180 mg/dL all other times of the day Specimen Anatomical Collection Method Collection Time Receive d Time (Source) Location / / Volume Laterality Blood 12/11/2021 4:00 PM 4:00 EDT PM EDT Iker Cuevas MD POINT OF CARE TEST ORDERABLE S Performing Organization Address City/State/[place] [address] [address] (ABNORMAL) POCT Glucose (12/11/2021 12:01 PM EDT) P athologist Signature POC Glucose 342 (H) 65 - 199 [facility] mg/dL [facility] LABORATORY Comment: Supplemental ranges: <140 mg/dL before meals <180 mg/dL all other times of the day Specimen Anatomical Collection Method Collection Time Receive d Time (Source) Location / / Volume Laterality Blood 12/11/2021 12:01 12/11/2021 PM EDT 12:01 PM EDT Iker Cuevas MD POINT OF CARE TEST ORDERABLE S Performing Organization Address City/State/[place] [address] COVID-19 PCR (12/11/2021 10:13 AM EDT) Patholo gist Method Time Signature SARS-CoV-2 Not Detected Not Detected BARBARA RNA [facility] LABOR[facility]ORY Comment: This result should be [...] diagnosis of COVID-19 is performed using the [employer] m RONNA S-CoV-2 Assay as authorized by the FDA Emergency Use Authorization (EUA). This EUA assay is intended for In-vitro Diagnostic (IVD) use with respiratory sp ecimens such as nasopharyngeal swabs collected from individuals during the ac terrence phase of infection. This assay is performed based on the instructions for use provided by [employer] and additional guidance provided by CDC and FDA. Testing is performed in the Clinical [employer] [facility] within the [...] fact sheets at the following FDA website: https://www.fda.gov/medical-devices/lofmeywldxv-krfullf-0680-jbzmp-77-ohatstwgu- fnu-lioqebqcnjotgp-gyprhwv-devices/jitek-lnowjpyqgnz-brjc SARS-Cov-2 RNA Source [employer] Swab [facility] LAB[facility]ORY Specimen (Source) Anatomical Collection Method Collection Time Re ceived Time Location / / Volume Laterality Nasopharyngeal Swab 12/11/2021 10:13 11/23 AM EDT 11:16 AM EDT Comment: Symptoms->Surveillance Resulting Agency Comment Spec In Lab Iker Cuevas MD MICROBIOLOGY - GENERAL ORDER [place] Performing Organization Address City/State/[place] [address] POCT Glucose (12/11/2021 7:34 AM EDT) athologist Signature POC Glucose 198 65 - 199 [facility]dL [facility] Comment: Supplemental ranges: <140 mg/dL before meals <180 mg/dL all other times of the day Specimen Anatomical Collection Method Collection Time Receive d Time (Source) Location / / Volume Laterality Blood 12/11/2021 7:34 AM 2 7:34 EDT AM EDT Iker Cuevas MD POINT OF CARE TEST ORDERABLE S Performing Organization Address City/[facility]/[place] [address] (ABNORMAL) POCT Glucose (12/11/2021 5:07 AM EDT) P athologist Signature POC Glucose 208 (H) 65 - 199 [facility] mg/dL [facility] Comment: Supplemental ranges: <140 mg/dL before meals <180 mg/dL all other times of the day Specimen Anatomical Collection Method Collection Time Receive d Time (Source) Location / / Volume Laterality Blood 12/11/2021 5:07 AM 2 5:07 EDT AM EDT Iker Cuevas MD POINT OF CARE TEST ORDERABLE S Performing Organization Address City/State/[place] [address] (ABNORMAL) Differential, Automated (12/11/2021 4:28 AM EDT) [facility] gist Method Time Signature Neutrophils % 79.6 % [facility] LABORATORY Neutr Abs (ANC) 7.01 (H) 1.70 - [facility] 6.10 [facility] x10(3)/[facility] L LABORATORY Lymphocytes % 9.1 % [facility] LABORATORY Lymphocytes Abs 0.8 (L) 0.9 - 3.2 [facility] x10(3)/[facility] LABORATORY Monocytes % 9.2 % [facility] LABORATORY Monocyte Abs 0.8 0.3 - 0.9 [facility] x10(3)/[facility] LABORATORY Eosinophils % 1.3 % [facility] LABORATORY Eosinophils Abs 0.1 0.0 - 0.4 [facility] x10(3)/[facility] LABORATORY Basophils % 0.5 % [facility] LABORATORY Basophils Abs 0.0 0.0 - 0.1 [facility] x10(3)/[facility] LABORATORY Immature Gran % 0.30 [...] Melisa Gran Abs 0.03 0.00 - 0.04 x10(3)/[facility] MAR Y [facility] LABORATORY Specimen Anatomical Collection Method Collection Time Receive d Time (Source) Location / / Volume Laterality Blood 12/11/2021 4:28 AM 4:37 EDT AM EDT Resulting Agency Comment Spec In Lab Bijan Sun MD HEMATOLOGY ORDERABLES Performing Organization Address City/State/Z[place] [address] (ABNORMAL) Hemogram (12/11/2021 4:28 AM EDT) Analysis Performed At Patho logist Time Signature WBC 8.8 4.0 - 9.5 [facility] x10(3)/[facility] LABORATORY RBC 4.15 (L) 4.58 - [facility] 5.54 [facility] x10(6)/[facility] LABORATORY Hemoglobin 11.9 (L) 13.7 - [facility] 16.5 g/dL [facility] LABORATORY Hematocrit 36.9 (L) 40.5 - [facility] 48.5 % [facility] LABORATORY MCV 88.9 82.9 - [facility] RYAN 93.1 [facility] LABORATORY MCH 28.7 27.5 - [facility] OLIVASCK 32.1 pg [facility] LABORATORY MCHC 32.2 32.0 - [facility] DAVIS 35.7 g/dL [facility] LABORATORY Platelets 211 145 - 357 [facility] x10(3)/[facility] LABORATORY RDWSD 48.3 (H) 36.0 - [facility] DAVIS 45.0 [facility] LABORATORY RDWCV 14.8 (H) 11.4 - [facility] RYAN 13.8 % [facility] LABORATORY MPV 9.6 7.6 - 12.9 [facility] LABORATORY nRBC % Auto 0.0 % [facility] LABORATORY nRBC Abs Auto 0.000 0.000 - [place] DAVIS 0.000 [facility] x10(3)/[facility] LABORATORY Specimen Anatomical Collection Method Collection Time Receive d Time (Source) Location / / Volume Laterality Blood 12/11/2021 4:28 AM 2 4:37 EDT AM EDT Resulting Agency Comment Spec In Lab Bijan Sun MD HEMATOLOGY ORDERABLES Performing Organization Address City/State/ZIP Code Phon e Number [place] [id number] (ABNORMAL) Prothrombin Time (12/11/2021 4:28 AM EDT) P athologist Signature PT 17.7 (H) 9.4 - 12.5 [facility] LABORATORY INR 1.6 [facility] Organization Address City/State/Z[place] [address] (ABNORMAL) BMP w/fasting Glucose (12/11/2021 4:28 AM EDT) P athologist Signature Glucose 207 (H) 65 - 99 [facility] Fasting mg/dL [facility] LAB[facility]ORY Comment: ?Fasting* Glucose Interpretive [...] Diabetes Mellitus, Position Statement from the [place] [employer]. ??Diabete s Care, Volume 33, Supplement 1, Jul 2009 BUN 49 (H) 10 - 20 mg/dL [facility] LABORATORY Creatinine 1.43 0.80 - 1.50 [...] Address City/State/[place] [address] Magnesium (12/11/2021 4:28 AM EDT) P athologist Signature Magnesium 1.04 0.69 - 1.07 [facility] mmol/L [facility] LABORATORY Specimen Anatomical Collection Method Collection Time Receive d Time (Source) Location / / Volume Laterality Blood 12/11/2021 4:28 AM 2 4:37 EDT AM EDT Resulting Agency Comment Spec In Lab Iker Cuevas MD CHEMISTRY ORDERABLES Performing Organization Address City/[facility]/[place] [address] POCT Glucose (12/11/2021 3:58 AM EDT) P athologist Signature POC Glucose 189 65 - 199 [facility] mg/dL [facility]ORY Comment: Supplemental ranges: <140 mg/dL before meals <180 mg/dL all other times of the day Specimen Anatomical Collection Method Collection Time Receive d Time (Source) Location / / Volume Laterality Blood 12/11/2021 3:58 AM 2 3:58 EDT AM EDT Iker Cuevas MD POINT OF CARE TEST ORDERABLE S Performing Organization Address City/[facility]/[place] [address] (ABNORMAL) POCT Glucose (12/10/2021 11:45 PM EDT) athologist Signature POC Glucose 205 (H) 65 - 199 [facility] RYAN mg/dL [facility]ORY Comment: Supplemental ranges: <140 mg/dL before meals <180 mg/dL all other times of the day Specimen Anatomical Collection Method Collection Time Receive d Time (Source) Location / / Volume Laterality Blood 12/10/2021 11:45 12/10/2021 PM EDT 11:45 PM EDT Iker Cuevas MD POINT OF CARE TEST ORDERABLE S Performing Organization Address City/[facility]/[place] [address] (ABNORMAL) POCT Glucose (12/10/2021 7:54 PM EDT) athologist Signature POC Glucose 225 (H) 65 - 199 [facility] mg/dL [facility] Comment: Supplemental ranges: <140 mg/dL before meals <180 mg/dL all other times of the day Specimen Anatomical Collection Method Collection Time Receive d Time (Source) Location / / Volume Laterality Blood 12/10/2021 7:54 PM 2 7:54 EDT PM EDT Iker Cuevas MD POINT OF CARE TEST ORDERABLE S Performing Organization Address City/State/[place] [address] Potassium (12/10/2021 7:46 PM EDT) athologist Signature Potassium 4.2 3.5 - 5.0 [facility] mmol/L [facility] Comment: Please note: ??Patients [...] Organization Address City/State/[place] [address] (ABNORMAL) Basic Metabolic Panel (non-fasting) (12/10/2021 6:12 PM EDT) athologist Signature Glucose Lvl 246 (H) 65 - 199 [facility] mg/dL [facility] Comment: Diabetes: >=200 mg/dL plus symp toms BUN 50 (H) 10 - 20 mg/dL [facility] LABORATORY Creatinine 1.39 0.80 - 1.50 mg/dL [facility] LABORATORY Sodium 138 135 - 145 mmol/L [facility] LABORATORY Potassium Not Perf 3.5 - 5.0 [facility] LABORATORY Comment: Unable to quantitate due [...] Cuevas MD CHEMISTRY ORDERABLES Performing Organization Address City/[facility]/[place] [address] POCT Glucose (12/10/2021 4:59 PM EDT) athologist Signature POC Glucose 158 65 - 199 [facility] mg/dL [facility] Comment: Supplemental ranges: <140 mg/dL before meals <180 mg/dL all other times of the day Specimen Anatomical Collection Method Collection Time Receive d Time (Source) Location / / Volume Laterality Blood 12/10/2021 4:59 PM 2 4:59 EDT PM EDT Iker Cuevas MD POINT OF CARE TEST ORDERABLE S Performing Organization Address City/State/ZIP [facility] [place] [address] (ABNORMAL) POCT Glucose (12/10/2021 12:43 PM EDT) athologist Signature POC Glucose 241 (H) 65 - 199 [facility] RYAN mg/dL [facility] Comment: Supplemental ranges: <140 mg/dL before meals <180 mg/dL all other times of the day Specimen Anatomical Collection Method Collection Time Receive d Time (Source) Location / / Volume Laterality Blood 12/10/2021 12:43 12/10/2021 PM EDT 12:43 PM EDT Iker Cuevas MD POINT OF CARE TEST ORDERABLE S Performing Organization Address City/State/[place] [address] EKG 12 Lead (12/10/2021 11:17 AM EDT) Component Value Ref Range Test Analysis Performed Pathologis t Method Time At Signature Ventricular rate 62 BPM MUSE SYSTEM Atrial Rate 62 BPM MUSE SYSTEM P-R Interval 142 ms MUSE SYSTEM QRS Duration 100 ms MUSE SYSTEM Q-T Interval 434 ms MUSE SYSTEM QTC Calculated 440 ms MUSE SYSTEM (Bezet) Calculated P [place] 34 degrees MUSE SYSTEM Calculated R [place] -39 degrees MUSE SYSTEM Calculated T [place] 92 degrees MUSE SYSTEM INTERPRETATION Normal sinus [...] SYSTEM - 12/10/2021 12:04 PM E DT ?[facility] ? Cardiac Cathete rization/Intervention Report ? Patient Name: Don Fatima. ? Procedure Date: 12/10/2021 ? A #: [id number] ? Primary Physician: Nobles, Vitaliy P ? Case #: [id number] ? File Name: [id number] ? Catheterization Order Number: [id number] ? [facility] ? Final Report [place], [place] ? Patient Name: ? Don E. Stewa rt ? ID#: ?[id number] ? : ?1945 ? Procedure Date: ? December 10, 2021 ? Case #: ? [id number] ? Room: ? 1 ? Case Physician: [...] was ?designated as ASA Class III. e [facility] clinical frailty scale is 5: Mildly [...] procedure was Urgent. The indication for ?the label designer visit is ACS great er than 24 [...] ?3.75 guiding catheter and a 3.5 Fr [facility] 20 Mhz using Manual ?pullback. ??Imaging was [...] ?3.75 guiding catheter and a 3.5 Fr [facility] 20 Mhz using Manual ?pullback. ??Imaging was [...] require ?modification of this regimen. C onsult [facility] Interventional Cardiology for ?questions. ?The 1 year [...] Procedure Note Vitaliy Nobles MD - 01/14/2022 [facility] Cardiac Catheterization/Intervention Re port Patient Name: Don FatimaMadiha Procedure Date: 12/10/2021 A #: [id number] Primary Physician: Vitaliy Nobles Case #: [id number] File Name: [id number] Catheterization Order Number: [id number] [facility] Final Report [place], [place] Patient Name: Don Fatima ID#: [...] e was Urgent. The indication for the label designer visit is ACS greater than 24 hrs [...] and a 3.5 Fr [facility] [place] 20 Mhz using Manual pullback. Imaging was [...] and a 3.5 Fr [facility] [place] 20 Mhz using Manual pullback. Imaging was [...] residual stenosis following this intervention. The final YULSISA flow was 3. PCI of the distal [...] require modification of this regimen. Consult [facility] Interventional Cardiology for [...] POC Glucose 262 (H) 65 - 199 [facility] mg/dL [facility] Comment: Supplemental ranges: <140 mg/dL before meals <180 mg/dL all other times of the day Specimen Anatomical Collection Method Collection Time Receive d Time (Source) Location / / Volume Laterality Blood 12/10/2021 10:30 12/10/2021 AM EDT 10:30 AM EDT Iker Cuevas MD POINT OF CARE TEST ORDERABLE S Performing Organization Address City/[facility]/[place] [address] (ABNORMAL) POCT Glucose (12/10/2021 9:48 AM EDT) athologist Signature POC Glucose 279 (H) 65 - 199 [facility] mg/dL [facility] Comment: Supplemental ranges: <140 mg/dL before meals <180 mg/dL all other times of the day Specimen Anatomical Collection Method Collection Time Receive d Time (Source) Location / / Volume Laterality Blood 12/10/2021 9:48 AM 9:48 EDT AM EDT Iker Cuevas MD POINT OF CARE TEST ORDERABLE S Performing Organization Address City/[facility]/[place] [address] (ABNORMAL) POCT Glucose (12/10/2021 9:07 AM EDT) athologist Signature POC Glucose 268 (H) 65 - 199 [facility] mg/dL [facility] LAB[facility]ORY Comment: Supplemental ranges: <140 mg/dL before meals <180 mg/dL all other times of the day Specimen Anatomical Collection Method Collection Time Receive d Time (Source) Location / / Volume Laterality Blood 12/10/2021 9:07 AM 9:07 EDT AM EDT Iker Cuevas MD POINT OF CARE TEST ORDERABLE S Performing Organization Address City/State/Z[place] [address] (ABNORMAL) Point of Care Blood Gas Historical (12/10/2021 9:04 AM EDT) Patholo gist Method Time Signature POC pH 7.40 7.35 - [facility] 7.45 [facility] LABORATORY POC PCO2 40 35 - 45 [facility] LABORATORY POC PO2 63 (L) 85 - 104 [facility] LABORATORY POC Base Excess 0.0 -3.0 - 3.0 [facility] K mmol/L [facility] LABORATORY POC HCO3 24.8 20.0 - [facility] 26.0 [facility] POC Sodium 143 135 - 145 [facility] mmol/L [facility] LABORATORY POC Potassium 3.7 3.5 - 5.0 [facility] mmol/L [facility] LABORATORY POC Ionized Ca 1.07 (L) 1.15 - [facility] 1.33 [facility] POC Hematocrit 30.0 (L) 40.0 - [facility] 51.0 % [facility] LABORATORY POC Calc Hgb 10.2 (L) 13.7 - [facility] 17.5 g/dL [facility] LABORATORY Comment: The calculation of hemoglobin f rom hematocrit assumes a normal MCHC. POC Bgas Loc CC LAB [facility] LABORATORY Specimen Anatomical Collection Method Collection Time Receive d Time (Source) Location / / Volume Laterality Blood 12/10/2021 9:04 AM 2 EDT 12:00 PM EDT Ifeanyi Truong MD CHEMISTRY ORDERABLES Performing Organization Address City/State/Z[place] [address] (ABNORMAL) POCT Glucose (12/10/2021 7:19 AM EDT) P athologist Signature POC Glucose 274 (H) 65 - 199 [facility] mg/dL [facility] LABORATORY Comment: Supplemental ranges: <140 mg/dL before meals <180 mg/dL all other times of the day Specimen Anatomical Collection Method Collection Time Receive d Time (Source) Location / / Volume Laterality Blood 12/10/2021 7:19 AM 2 7:19 EDT AM EDT Iker Cuevas MD POINT OF CARE TEST ORDERABLE S Performing Organization Address City/[facility]/[place] [address] Heparin (unfractionated) Level (12/10/2021 4:25 AM EDT) athologist [facility] Heparin UFH 0.69 IU/mL [facility] LABORATORY Comment: Heparin (anti-Xa) levels should be [...] Cuevas MD HEMATOLOGY ORDERABLES Performing Organization Address City/[facility]/ZIP Code Phon e Number [address] (ABNORMAL) Differential, Automated (12/10/2021 4:25 AM EDT) Patholo gist Method Time Signature Neutrophils % 79.8 % [facility] LABORATORY Neutr Abs (ANC) 7.47 (H) 1.70 - [facility] 6.10 [facility] x10(3)/[facility] L LABORATORY Lymphocytes % 10.6 % [facility] LABORATORY Lymphocytes Abs 1.0 0.9 - 3.2 [facility] x10(3)/[facility] LABORATORY Monocytes % 8.4 % [facility] LABORATORY Monocyte Abs 0.8 0.3 - 0.9 [facility] x10(3)/[facility] LABORATORY Eosinophils % 0.6 % [facility] LABORATORY Eosinophils Abs 0.1 0.0 - 0.4 [facility] x10(3)/[facility] LABORATORY Basophils % 0.2 % [facility] LABORATORY Basophils Abs 0.0 0.0 - 0.1 [facility] x10(3)/[facility] LABORATORY Immature Gran % 0.40 [...] Melisa Gran Abs 0.04 0.00 - 0.04 x10(3)/[facility] MAR [facility] LABORATORY Specimen Anatomical Collection Method Collection Time Receive d Time (Source) Location / / Volume Laterality Blood 12/10/2021 4:25 AM 2 4:34 EDT AM EDT Resulting Agency Comment Spec In Lab Morgan BROWN HEMATOLOGY ORDERABLES Performing Organization Address City/State/Z[place] [address] (ABNORMAL) Hemogram (12/10/2021 4:25 AM EDT) Analysis Performed At Patho logist Time Signature WBC 9.4 4.0 - 9.5 [facility] x10(3)/[facility] LABORATORY RBC 3.81 (L) 4.58 - [facility] 5.54 [facility] x10(6)/[facility] LABORATORY Hemoglobin 11.1 (L) 13.7 - [facility] R[facility] 16.5 g/dL [facility] LABORATORY Hematocrit 34.0 (L) 40.5 - [facility] DAVIS 48.5 % [facility] LABORATORY MCV 89.2 82.9 - [facility] RYAN 93.1 [facility] LABORATORY MCH 29.1 27.5 - [facility] 32.1 pg [facility] LABORATORY MCHC 32.6 32.0 - [facility] OLIVASCK 35.7 g/dL [facility] LABORATORY Platelets 183 145 - 357 [facility] x10(3)/[facility] LABORATORY RDWSD 49.9 (H) 36.0 - [place] DAVIS 45.[address] [facility] RDWCV 15.2 (H) 11.4 - [facility] RYAN 13.8 % [facility] LABORATORY MPV 9.8 7.6 - 12.9 [facility] nRBC % Auto 0.0 % [facility] nRBC Abs Auto 0.000 0.000 - [place] RY[facility] 0.000 [facility] x10(3)/[facility] LABORATORY Specimen Anatomical Collection Method Collection Time Receive d Time (Source) Location / / Volume Laterality Blood 12/10/2021 4:25 AM 4:34 EDT AM EDT Resulting Agency Comment Spec In Lab Morgan BROWN HEMATOLOGY ORDERABLES Performing Organization Address City/State/Z[place] [address] (ABNORMAL) Prothrombin Time (12/10/2021 4:25 AM EDT) P athologist Signature PT 20.0 (H) 9.4 - 12.5 [facility] LABORATORY INR 1.7 [place] Organization Address City/State/[place] [address] (ABNORMAL) BMP w/fasting Glucose (12/10/2021 4:25 AM EDT) athologist Signature Glucose 210 (H) 65 - 99 [facility] Fasting mg/dL [facility] LABORATORY Comment: ?Fasting* Glucose Interpretive [...] Diabetes Mellitus, Position Statement from the [place] [employer]. ??Diabete s Care, Volume 33, Supplement 1, Jul 2009 BUN 54 (H) 10 - 20 mg/dL [facility] LABORATORY Creatinine 1.52 (H) 0.80 - [...] 15 mmol/L [facility] LABORATORY Calcium 8.0 (L) 8.5 - [...] Organization Address City/State/ZIP Code Phon e Number [address] Magnesium (12/10/2021 4:25 AM EDT) P athologist Signature Magnesium 0.95 0.69 - 1.07 [facility] mmol/L [facility] LABORATORY Specimen Anatomical Collection Method Collection Time Receive d Time (Source) Location / / Volume Laterality Blood 12/10/2021 4:25 AM 2 4:34 EDT AM EDT Resulting Agency Comment Spec In Lab Iker Cuevas MD CHEMISTRY ORDERABLES Performing Organization Address City/[facility]/ZIP Code Phon e Number [address] POCT Glucose (12/10/2021 1:58 AM EDT) P athologist Signature POC Glucose 164 65 - 199 [facility] mg/dL [facility] LABORATORY Comment: Supplemental ranges: <140 mg/dL before meals <180 mg/dL all other times of the day Specimen Anatomical Collection Method Collection Time Receive d Time (Source) Location / / Volume Laterality Blood 12/10/2021 1:58 AM 2 1:58 EDT AM EDT Iker Cuevas MD POINT OF CARE TEST ORDERABLE S Performing Organization Address City/[facility]/[place] [address] (ABNORMAL) POCT Glucose (12/09/2021 9:02 PM EDT) athologist Signature POC Glucose 313 (H) 65 - 199 [facility] mg/dL [facility] LABORATORY Comment: Supplemental ranges: <140 mg/dL before meals <180 mg/dL all other times of the day Specimen Anatomical Collection Method Collection Time Receive d Time (Source) Location / / Volume Laterality Blood 12/09/2021 9:02 PM 2 9:02 EDT PM EDT Iker Cuevas MD POINT OF CARE TEST ORDERABLE S Performing Organization Address City/State/Z[place] [address] Heparin (unfractionated) Level (12/09/2021 7:30 PM EDT) athologist Signature Heparin UFH 0.48 IU/mL [facility] LABORATORY Comment: Heparin (anti-Xa) levels should be [...] Organization Address City/State/[place] [address] (ABNORMAL) Basic Metabolic Panel (non-fasting) (12/09/2021 7:30 PM EDT) athologist Signature Glucose Lvl 372 (H) 65 - 199 [facility] mg/dL [facility] LABORATORY Comment: Diabetes: >=200 mg/dL plus symp toms BUN 56 (H) 10 - 20 mg/dL [facility] LABORATORY Creatinine 1.75 (H) 0.80 - [...] Address City/State/[place] [address] (ABNORMAL) POCT Glucose (12/09/2021 6:34 PM EDT) athologist Signature POC Glucose 408 (H) 65 - 199 [facility] mg/dL [facility]ORY Comment: Supplemental ranges: <140 mg/dL before meals <180 mg/dL all other times of the day Specimen Anatomical Collection Method Collection Time Receive d Time (Source) Location / / Volume Laterality Blood 12/09/2021 6:34 PM 2 6:34 EDT PM EDT Iker Cuevas MD POINT OF CARE TEST ORDERABLE S Performing Organization Address City/[facility]/[place] [address] (ABNORMAL) POCT Glucose (12/09/2021 6:32 PM EDT) athologist Signature POC Glucose 356 (H) 65 - 199 [facility] mg/dL [facility] Comment: Supplemental ranges: <140 mg/dL before meals <180 mg/dL all other times of the day Specimen Anatomical Collection Method Collection Time Receive d Time (Source) Location / / Volume Laterality Blood 12/09/2021 6:32 PM 2 6:32 EDT PM EDT Iker Cuevas MD POINT OF CARE TEST ORDERABLE S Performing Organization Address City/State/[place] [address] (ABNORMAL) POCT Glucose (12/09/2021 4:19 PM EDT) athologist Signature POC Glucose 347 (H) 65 - 199 [place] mg/dL [facility]OR[facility]ORY Comment: Supplemental ranges: <140 mg/dL before meals <180 mg/dL all other times of the day Specimen Anatomical Collection Method Collection Time Receive d Time (Source) Location / / Volume Laterality Blood 12/09/2021 4:19 PM 2 4:19 EDT PM EDT Iker Cuevas MD POINT OF CARE TEST ORDERABLE S Performing Organization Address City/State/[place] [address] Heparin (unfractionated) Level (12/09/2021 1:29 PM EDT) athologist Signature Heparin UFH 0.42 IU/mL [facility] LABORATORY Comment: Heparin (anti-Xa) levels should be [...] Cuevas MD HEMATOLOGY ORDERABLES Performing Organization Address City/[facility]/[place] [address] (ABNORMAL) POCT Glucose (12/09/2021 12:02 PM EDT) athologist Signature POC Glucose 235 (H) 65 - 199 [facility] mg/dL [facility] Comment: Supplemental ranges: <140 mg/dL before meals <180 mg/dL all other times of the day Specimen Anatomical Collection Method Collection Time Receive d Time (Source) Location / / Volume Laterality Blood 12/09/2021 12:02 12/09/2021 PM EDT 12:02 PM EDT Iker Cuevas MD POINT OF CARE TEST ORDERABLE S Performing Organization Address City/State/[place] [address] (ABNORMAL) POCT Glucose (12/09/2021 9:44 AM EDT) P athologist Signature POC Glucose 214 (H) 65 - 199 [facility] mg/dL [facility]ORY Comment: Supplemental ranges: <140 mg/dL before meals <180 mg/dL all other times of the day Specimen Anatomical Collection Method Collection Time Receive d Time (Source) Location / / Volume Laterality Blood 12/09/2021 9:44 AM 9:44 EDT AM EDT Iker Cuevas MD POINT OF CARE TEST ORDERABLE S Performing Organization Address City/[facility]/[place] [address] EKG 12 Lead (12/09/2021 7:57 AM EDT) Component Value Ref Range Test Analysis Performed Pathologis t Method Time At Signature Ventricular rate 101 BPM MUSE SYSTEM Atrial Rate 101 BPM MUSE SYSTEM P-R Interval 150 ms MUSE SYSTEM QRS Duration 112 ms MUSE SYSTEM Q-T Interval 364 ms MUSE SYSTEM QTC Calculated 471 ms MUSE SYSTEM (Bezet) Calculated P [place] 59 degrees MUSE SYSTEM Calculated R [place] -42 degrees MUSE SYSTEM Calculated T [place] 102 degrees MUSE SYSTEM INTERPRETATION Sinus tachycardia Occasional Premature ventricular com plexes MUSE SYSTEM Left axis deviation 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) Abnormal ECG When compared with ECG of 08-DEC-2021 16:40, Premature ventricular complexes are now Present Confirmed by MD Jim, Yoon ([id number]) on 12/10/2021 4:55:06 PM Specimen Anatomical Collection Method Collection Time Receive d Time (Source) Location / / Volume Laterality 12/09/2021 7:57 AM 4:55 EDT PM EDT Iker Cuevas MD ECG ORDERABLES Performing Organization Address City/State/ZIP Code Phon e Number MUSE SYSTEM (ABNORMAL) POCT Glucose (12/09/2021 7:28 AM EDT) P athologist Signature POC Glucose 263 (H) 65 - 199 [facility] mg/dL [facility]ORY Comment: Supplemental ranges: <140 mg/dL before meals <180 mg/dL all other times of the day Specimen Anatomical Collection Method Collection Time Receive d Time (Source) Location / / Volume Laterality Blood 12/09/2021 7:28 AM 7:28 EDT AM EDT Iker Cuevas MD POINT OF CARE TEST ORDERABLE S Performing Organization Address City/State/[place] [address] (ABNORMAL) Hemoglobin A1c (12/09/2021 [...] with hemoglobinopathies. Additional resources are available on [facility] ADA website. Macario HAMMOND, Ruthann J, Deysi R, et al. ??Tr anslating the A1C assay into estimated average glucose values. ??Diabetes Care 2008:31(8):6276-3994. Specimen Anatomical Collection Method Collection Time Receive d Time (Source) Location / / Volume Laterality Blood Venous Draw / 12/09/2021 6:18 AM 12/10/19 22 Unknown EDT 12:24 PM EDT Resulting Agency Comment Spec In Lab Migdalia BROWN CHEMISTRY ORDERABLES Performing Organization Address City/State/[place] [address] (ABNORMAL) Prothrombin Time (12/09/2021 6:18 AM EDT) P athologist Signature PT 26.6 (H) 9.4 - 12.5 [facility] LABORATORY INR 2.3 [place] Organization Address City/State/[place] [address] Heparin (unfractionated) Level (12/09/2021 6:18 AM EDT) P athologist Signature Heparin UFH 0.24 IU/mL [facility] LABORATORY Comment: Heparin (anti-Xa) levels should be [...] Address City/State/[place] [address] (ABNORMAL) Differential, Automated (12/09/2021 6:18 AM EDT) Patholo gist Method Time Signature Neutrophils % 91.5 % [facility] LABORATORY Neutr Abs (ANC) 15.78 (H) 1.70 - [facility] 6.10 [facility] x10(3)/[facility] LABORATORY Lymphocytes % 2.9 % [facility] LABORATORY Lymphocytes Abs 0.5 (L) 0.9 - 3.2 [facility] x10(3)/[facility] LABORATORY Monocytes % 4.9 % [facility] LABORATORY Monocyte Abs 0.8 0.3 - 0.9 [facility] x10(3)/[facility] LABORATORY Eosinophils % 0.0 % [facility] LABORATORY Eosinophils Abs 0.0 0.0 - 0.4 [facility] x10(3)/[facility] LABORATORY Basophils % 0.2 % [facility] LABORATORY Basophils Abs 0.0 0.0 - 0.1 [facility] x10(3)/[facility] LABORATORY Immature Gran % 0.50 [...] Abs 0.09 (H) 0.00 - 0.04 x10(3)/[facility] LABORATORY Specimen Anatomical Collection Method Collection Time Receive d Time (Source) Location / / Volume Laterality Blood 12/09/2021 6:18 AM 6:33 EDT AM EDT Resulting Agency Comment Spec In Lab Morgan BROWN HEMATOLOGY ORDERABLES Performing Organization Address City/State/[place] [address] (ABNORMAL) Hemogram (12/09/2021 6:18 AM EDT) Analysis Performed At Patho logist Time Signature WBC 17.2 (H) 4.0 - 9.5 [facility] x10(3)/[facility] LABORATORY RBC 4.32 (L) 4.58 - [facility] 5.54 [facility] x10(6)/[facility] LABORATORY Hemoglobin 12.6 (L) 13.7 - [facility] 16.5 g/dL [facility] LABORATORY Hematocrit 38.9 (L) 40.5 - [facility] 48.5 % [facility]ORY MCV 90.0 82.9 - [facility] 93.1 fL [facility]ORATORY MCH 29.2 27.5 - [facility] 32.1 pg [facility] LABORATORY MCHC 32.4 32.0 - [place] 35.7 g/dL [facility] LABORATORY Platelets 193 145 - 357 [facility] x10(3)/[facility] LABORATORY RDWSD 50.4 (H) 36.0 - [facility] 45.0 [facility] LABORATORY RDWCV 15.2 (H) 11.4 - [facility] 13.8 % [facility] LABORATORY MPV 9.5 7.6 - 12.9 [facility] LABORATORY nRBC % Auto 0.0 % [facility] LABORATORY nRBC Abs Auto 0.000 0.000 - [facility] 0.000 [facility] x10(3)/[facility] LABORATORY Specimen Anatomical Collection Method Collection Time Receive d Time (Source) Location / / Volume Laterality Blood 12/09/2021 6:18 AM 6:33 EDT AM EDT Resulting Agency Comment Spec In Lab Morgan BROWN HEMATOLOGY ORDERABLES Performing Organization Address City/State/[place] [address] Lipid Panel (Reflex Direct LDL) (12/09/2021 6:18 AM EDT) P athologist Signature Chol, Total 105 mg/dL [facility] LABORATORY Comment: Lower Risk: <200 mg/dL Average Risk: 200-239 mg/dL Higher Risk: >gi=366 mg/dL Triglycerides 133 mg/dL [facility] LABORATORY Comment: Average Risk/Lower Risk: <150 mg/dL Borderline High Risk: 150-199 mg/dL High Risk: 200-499 mg/dL Very High Risk: >vd=275 mg/dL HDL 42 mg/dL [facility] LABORATORY Comment: Males: ?? Higher Risk: <40 mg/dL Females: ?? Higher Risk: <50 mg/dL LDL Cholesterol 36 mg/dL [facility] LABORATORY Comment: Lowest Risk: <100 mg/dL Lower Risk: 100-129 mg/dL Borderline High Risk: 130-159 mg/dL High Risk: 160-189 mg/dL Very High Risk: >aa=483 mg/dL Chol/HDL Ratio 2.5 ratio [facility] LABORATORY Lipid Interpretation See Note [facility] Comment: Lipid management should be guided by a p atient? s ASCVD risk, goals and preferences. ACC/AHA Guidelines recommend high intens ity statin if clinical ASCVD or LDL greater than or equal to 190 mg/dL. http://Nasza-klasa.pl.MacuLogix/ZYJ-BKZ-Icswcppbt Adults aged 40-75 with LDL 70-189 mg/dL should have their 10 year ASCVD risk estimated with the ACC/AHA ASCVD risk es timator http://tools.acc.org/BYRFX-Aivd-Atoriupz r/ Statin should be discussed if risk [...] Organization Address City/State/[place] [address] TSH (12/09/2021 6:18 AM EDT) athologist Signature TSH 1.60 0.27 - 4.20 [facility] mcIU/mL [facility] LABORATORY Comment: Reference Interval (mcIU/mL): Females: ??First Trimester: 0.23-3.88 ??Second Trimester: 0.22-3.90 ??Third Trimester: 0.44-4.66 Specimen Anatomical Collection Method Collection Time Receive d Time (Source) Location / / Volume Laterality Blood 12/09/2021 6:18 AM 2 6:33 EDT AM EDT Resulting Agency Comment Spec In Lab Iker Cuevas MD CHEMISTRY ORDERABLES Performing Organization Address City/State/[place] [address] Hepatic Function Panel (12/09/2021 6:18 AM EDT) athologist Signature Total Protein 7.3 6.1 - 8.0 [facility] g/dL [facility] LABORATORY Albumin 4.2 3.2 - 5.2 [place] g/dL [facility] AST 25 0 - 39 [place] unit/L [facility] ALT 15 0 - 55 [facility] unit/L [facility]ORY Alk Phos 75 40 - 130 [facility] unit/L [facility]ORY Total 1.1 0.2 - 1.3 [place] Bilirubin mg/dL [facility] LABORATORY Bili, Direct 0.2 0.0 - 0.3 [facility] mg/dL [facility] LABORATORY Specimen Anatomical Collection Method Collection Time Receive d Time (Source) Location / / Volume Laterality Blood 12/09/2021 6:18 AM 2 6:33 EDT AM EDT Resulting Agency Comment Spec In Lab Iker Cuevas MD CHEMISTRY ORDERABLES Performing Organization Address City/[facility]/ZIP Code Phon e Number [address] (ABNORMAL) BMP w/fasting Glucose (12/09/2021 6:18 AM EDT) athologist Signature Glucose 235 (H) 65 - 99 [facility] Fasting mg/dL [facility] LABORATORY Comment: ?Fasting* Glucose Interpretive [...] Diabetes Mellitus, Position Statement from the [place] [employer]. ??Diabete s Care, Volume 33, Supplement 1, Jul 2009 BUN 49 (H) 10 - 20 mg/dL [place] [...] Organization Address City/State/Z[place] [address] [facility] LABORATORY Drive Magnesium (12/09/2021 6:18 AM EDT) athologist Signature Magnesium 0.81 0.69 - 1.07 [facility] mmol/L [facility] LABORATORY Specimen Anatomical Collection Method Collection Time Receive d Time (Source) Location / / Volume Laterality Blood 12/09/2021 6:18 AM 2 6:33 EDT AM EDT Resulting Agency Comment Spec In Lab Iker Cuevas MD CHEMISTRY ORDERABLES Performing Organization Address City/State/[place] [address] [facility] LAB[address]ATORY Drive (ABNORMAL) Troponin (12/09/2021 6:18 AM EDT) athologist Signature Troponin-T 1.13 (H) 0.00 - [facility] 0.00 ng/mL [facility] LABOR[facility]ORY Comment: The 99th percentile for Troponin T is le ss than 0.01 ng/mL, any detectable cTnT concentration using this assay should be considered elevated. According to the third universal definit ion of myocardial infarction the following criteria with a clinical prese ntation consistent with acute myocardial ischemia meets the diagnosis for a myocardial infarction (RI). Detection of a rise and/or fall of [...] additional sample may be indicated. Reference: Third [place] Definition of Myocardial Infarction. Journal of the [place] [employer] 2012;60:1581-98 Specimen Anatomical Collection Method Collection Time Receive d Time (Source) Location / / Volume Laterality Blood 12/09/2021 6:18 AM 2 6:33 EDT AM EDT Resulting Agency Comment Spec In Lab Iker Cuevas MD CHEMISTRY ORDERABLES Performing Organization Address City/State/ZIP Code Phon e Number [place] [id number] XR Chest One View [...] who have questions please contact the health interior plant caretaker that requested your imaging first. ? [...] ho have questions please contact the health interior plant caretaker that requested your imaging first. Electronically signed by: Yoselin White, [facility] ([phone]), at 12/09/2021 5:35 AM Amber Sanches MD IMG DX ORDERABLES (ABNORMAL) BLOOD GAS 2 ARTERIAL (12/09/2021 5:14 AM EDT) Analysis Performed At Patho logist Time Signature pH Art 7.43 7.35 - [facility] 7.45 [facility] LABOR[facility]ORY pCO2 Art 36 35 - 45 [facility] mmHg [facility] LAB[facility]ORY pO2 Art 67 (L) 85 - 104 [facility] mmHg [facility] LABORATORY HCO3 Art 23.4 20.0 - [facility] 26.0 [facility] mmol/L HOSPITAL LABORATORY BE Art -0.9 -3.0 - 3.0 [facility] mmol/L [facility] LABORATORY Hgb Blood Gas 13.2 (L) 13.7 - [facility] 16.5 g/dL [facility] LABORATORY O2HB Art 91.3 (L) 94.0 - [facility] 97.0 % [facility] LABORATORY COHB Art 0.4 % [place] [...] Blood 104 98 - 107 mmol/L [facility] LABORATORY Gluc Whole Bld 223 (H) 65 - 199 mg/dL [facility] LABORATORY Comment: Diabetes: >=200 mg/dL plus symp toms. Lactate WB 2.7 (H) 0.5 - 2.2 mmol/L [facility] LABORATORY FIO2 Art 35 % [facility] LABORATORY Flow Art 8.0 LPM [facility] LABORATORY PF Ratio Art 191 [facility] LABORATORY Specimen Anatomical Collection Method Collection Time Receive d Time (Source) Location / / Volume Laterality Blood 12/09/2021 5:14 AM 2 5:14 EDT AM EDT Iker Cuevas MD CHEMISTRY ORDERABLES Performing Organization Address City/State/Z[place] [address] POCT Glucose (12/09/2021 4:46 AM EDT) P athologist Signature POC Glucose 198 65 - 199 [facility] mg/dL [facility]OR[facility]ORY Comment: Supplemental ranges: <140 mg/dL before meals <180 mg/dL all other times of the day Specimen Anatomical Collection Method Collection Time Receive d Time (Source) Location / / Volume Laterality Blood 12/09/2021 4:46 AM 2 4:46 EDT AM EDT Iker Cuevas MD POINT OF CARE TEST ORDERABLE S Performing Organization Address City/State/[place] [address] (ABNORMAL) POCT Glucose (12/09/2021 3:01 AM EDT) athologist Signature POC Glucose 225 (H) 65 - 199 [facility] mg/dL [facility] Comment: Supplemental ranges: <140 mg/dL before meals <180 mg/dL all other times of the day Specimen Anatomical Collection Method Collection Time Receive d Time (Source) Location / / Volume Laterality Blood 12/09/2021 3:01 AM 3:01 EDT AM EDT Iker Cuevas MD POINT OF CARE TEST ORDERABLE S Performing Organization Address City/State/[place] [address] (ABNORMAL) POCT Glucose (12/08/2021 10:55 PM EDT) athologist Signature POC Glucose 327 (H) 65 - 199 [facility] mg/dL [facility]ORY Comment: Supplemental ranges: <140 mg/dL before meals <180 mg/dL all other times of the day Specimen Anatomical Collection Method Collection Time Receive d Time (Source) Location / / Volume Laterality Blood 12/08/2021 10:55 12/08/2021 PM EDT 10:55 PM EDT Iker Cuevas MD POINT OF CARE TEST ORDERABLE S Performing Organization Address City/State/[place] [address] Heparin (unfractionated) Level (12/08/2021 10:03 PM EDT) athologist Signature Heparin UFH 0.18 IU/mL [facility] LABORATORY Comment: Heparin (anti-Xa) levels should be [...] Organization Address City/State/Z[place] [address] (ABNORMAL) Troponin (12/08/2021 10:03 PM EDT) athologist Signature Troponin-T 0.92 (H) 0.00 - [place] [place] 0.00 ng/mL [facility]ORY Comment: The 99th percentile for Troponin T is le ss than 0.01 ng/mL, any detectable cTnT concentration using this assay should be considered elevated. According to the third universal definit ion of myocardial infarction the following criteria with a clinical prese ntation consistent with acute myocardial ischemia meets the diagnosis for a myocardial infarction (RI). Detection of a rise and/or fall of [...] additional sample may be indicated. Reference: Third [place] Definition of Myocardial Infarction. Journal of the [place] [employer] 2012;60:1581-98 Specimen Anatomical Collection Method Collection Time Receive d Time (Source) Location / / Volume Laterality Blood 12/08/2021 10:03 12/08/2021 PM EDT 10:31 PM EDT Resulting Agency Comment Spec In Lab Iker Cuevas MD CHEMISTRY ORDERABLES Performing Organization Address City/[facility]/ZIP Code Phon e Number [address] (ABNORMAL) POCT Glucose (12/08/2021 8:22 PM EDT) P athologist Signature POC Glucose 429 (H) 65 - 199 [facility] mg/dL [facility]ORATORY Comment: Supplemental ranges: <140 mg/dL before meals <180 mg/dL all other times of the day Specimen Anatomical Collection Method Collection Time Receive d Time (Source) Location / / Volume Laterality Blood 12/08/2021 8:22 PM 2 8:22 EDT PM EDT Iker Cuevas MD POINT OF CARE TEST ORDERABLE S Performing Organization Address City/[facility]/[place] [address] (ABNORMAL) POCT Glucose (12/08/2021 7:06 PM EDT) P athologist Signature POC Glucose 442 (H) 65 - 199 [facility] mg/dL [facility] LABORATORY Comment: Supplemental ranges: <140 mg/dL before meals <180 mg/dL all other times of the day Specimen Anatomical Collection Method Collection Time Receive d Time (Source) Location / / Volume Laterality Blood 12/08/2021 7:06 PM 2 7:06 EDT PM EDT Iker Cuevas MD POINT OF CARE TEST ORDERABLE S Performing Organization Address City/[facility]/ZIP Code Phon e Number [address] Magnesium (12/08/2021 6:02 PM EDT) P athologist Signature Magnesium 0.86 0.69 - 1.07 [facility] mmol/L [facility] LABORATORY Specimen Anatomical Collection Method Collection Time Receive d Time (Source) Location / / Volume Laterality Blood 12/08/2021 6:02 PM 2 6:36 EDT PM EDT Resulting Agency Comment Spec In Lab Iker Cuevas MD CHEMISTRY ORDERABLES Performing Organization Address City/State/Z[place] [address] (ABNORMAL) Basic Metabolic Panel (non-fasting) (12/08/2021 6:02 PM EDT) P athologist Signature Glucose Lvl 392 (H) 65 - 199 [facility] mg/dL [facility] LABORATORY Comment: Diabetes: >=200 mg/dL plus symp toms BUN 41 (H) 10 - 20 mg/dL [facility] LABORATORY Creatinine 1.44 0.80 - 1.50 [...] Organization Address City/State/[place] [address] (ABNORMAL) Differential, Automated (12/08/2021 6:02 PM EDT) [facility] gist Method Time Signature Neutrophils % 89.5 % [facility] LABORATORY Neutr Abs (ANC) 13.97 (H) 1.70 - [facility] 6.10 [facility] x10(3)/[facility] LABORATORY Lymphocytes % 3.7 % [facility] LABORATORY Lymphocytes Abs 0.6 (L) 0.9 - 3.2 [facility] x10(3)/[facility] LABORATORY Monocytes % 6.1 % [facility] LABORATORY Monocyte Abs 1.0 (H) 0.3 - 0.9 [facility] x10(3)/[facility] LABORATORY Eosinophils % 0.0 % [facility] LABORATORY Eosinophils Abs 0.0 0.0 - 0.4 [facility] x10(3)/[facility] LABORATORY Basophils % 0.2 % [facility] LABORATORY Basophils Abs 0.0 0.0 - 0.1 [facility] x10(3)/[facility] LABORATORY Immature Gran % 0.50 [...] Abs 0.08 (H) 0.00 - 0.04 x10(3)/[facility] LABORATORY Specimen Anatomical Collection Method Collection Time Receive d Time (Source) Location / / Volume Laterality Blood 12/08/2021 6:02 PM 2 6:36 EDT PM EDT Resulting Agency Comment Spec In Lab Morgan BROWN HEMATOLOGY ORDERABLES Performing Organization Address City/State/Z[place] [address] (ABNORMAL) Hemogram (12/08/2021 6:02 PM EDT) Analysis Performed At Patho logist Time Signature WBC 15.6 (H) 4.0 - 9.5 [facility] x10(3)/[facility] LABORATORY RBC 4.05 (L) 4.58 - [facility] 5.54 [facility] x10(6)/[facility] LABORATORY Hemoglobin 11.8 (L) 13.7 - [facility] 16.[facility] g/dL [facility] LABORATORY Hematocrit 35.8 (L) 40.5 - [facility] 48.5 % [facility] LABORATORY MCV 88.4 82.9 - [facility]1 [facility] LABORATORY MCH 29.1 27.5 - [place] RYAN 32.1 pg [facility] LABORATORY MCHC 33.0 32.0 - [facility] 35.7 g/dL [facility] LABORATORY Platelets 178 145 - 357 [facility] x10(3)/[facility] LABORATORY RDWSD 49.3 (H) 36.0 - [facility] RYAN 45.0 [facility] LABORATORY RDWCV 15.1 (H) 11.4 - [facility] RYAN 13.8 % [facility] LABORATORY MPV 10.4 7.6 - 12.9 [facility] nRBC % Auto 0.0 % [facility] LABORATORY nRBC Abs Auto 0.000 0.000 - [facility] 0.000 [facility] x10(3)/[facility] LABORATORY Specimen Anatomical Collection Method Collection Time Receive d Time (Source) Location / / Volume Laterality Blood 12/08/2021 6:02 PM 2 6:36 EDT PM EDT Resulting Agency Comment Spec In Lab Morgan [facility] HEMATOLOGY ORDERABLES Performing Organization Address City/State/ZIP Code Phon e Number [place] [phone] (ABNORMAL) Troponin (12/08/2021 6:02 PM EDT) P athologist Signature Troponin-T 0.89 (H) 0.00 - [place] DAVIS 0.00 ng/mL [facility] LABORATORY Comment: The 99th percentile for Troponin T is le ss than 0.01 ng/mL, any detectable cTnT concentration using this assay should be considered elevated. According to the third universal definit ion of myocardial infarction the following criteria with a clinical prese ntation consistent with acute myocardial ischemia meets the diagnosis for a myocardial infarction (RI). Detection of a rise and/or fall of [...] additional sample may be indicated. Reference: Third [place] Definition of Myocardial Infarction. Journal of the [place] College [employer] Cardiology 2012;60:1581-98 Specimen Anatomical Collection Method Collection Time Receive d Time (Source) Location / / Volume Laterality Blood 12/08/2021 6:02 PM 2 6:36 EDT PM EDT Resulting Agency Comment Spec In Lab Iker Cuevas MD CHEMISTRY ORDERABLES Performing Organization Address City/State/ZIP Code Phon e Number [place] [phone] COVID-19 PCR (12/08/2021 5:00 PM EDT) Patholo gist Method Time Signature SARS-CoV-2 Not Detected Not Detected BARBARA RNA PCR [facility] LABORATORY Comment: This result should be [...] using the Simplexa COVID-19 Direct Assay by Altobeamjoi marcum as authorized by the FDA issued [...] fact sheets at the following FDA website: https://www.fda.gov/medical-devices/vegbhcpnlra-jqejets-6626-omuhz-89-enawzzbem- vhe-nmmozrsalphvbz-ypmxsqr-devices/lccdf-dkitwqlodvm-gwss SARS-CoV-2 Source [employer] Swab [facility] LABORATORY Specimen (Source) Anatomical Collection Method Collection Time Re ceived Time Location / / Volume Laterality Nasopharyngeal Swab 12/08/2021 5:00 12/08 PM EDT 6:03 PM EDT Comment: Symptoms->Surveillance Resulting Agency Comment Spec In Lab Iker Cuevas MD MICROBIOLOGY - GENERAL ORDER [place] Performing Organization Address City/State/[place] [address] EKG 12 Lead (12/08/2021 4:40 PM EDT) Component Value Ref Range Test Analysis Performed Pathologis t Method Time At Signature Ventricular rate 78 BPM MUSE SYSTEM Atrial Rate 78 BPM MUSE SYSTEM P-R Interval 152 ms MUSE SYSTEM QRS Duration 96 ms MUSE SYSTEM Q-T Interval 396 ms MUSE SYSTEM QTC Calculated 451 ms MUSE SYSTEM (Bezet) Calculated P [place] 44 degrees MUSE SYSTEM Calculated R [place] -31 degrees MUSE SYSTEM Calculated T [place] 124 degrees MUSE SYSTEM INTERPRETATION Normal sinus [...] POC Glucose 400 (H) 65 - 199 [facility] mg/dL [facility] LABORATORY Comment: Supplemental ranges: <140 mg/dL before meals <180 mg/dL all other times of the day Specimen Anatomical Collection Method Collection Time Receive d Time (Source) Location / / Volume Laterality Blood 12/08/2021 4:34 PM 2 4:34 EDT PM EDT Iker Cuevas MD POINT OF CARE TEST ORDERABLE S Performing Organization Address City/State/[place] [address] documented in this encounter [...] Coronary atherosclerosis of unspecified type of vessel, [place] or graft Cardiomyopathy, ischemic Other specified forms [...] MEALS, First dose (after last modification) on [facility] 12/11/21 at 1730, Until Discontinued, MEAL ASSOCIATED Give 1 unit: 3 grams of carbohydrate Hold if not eating or if BG less than 70 mg/dL., Routine Given 12/11/2021 5:16 PM EDT 10 Units insulin lispro (HumaLOG;Admelog) (100 Given 12/09/2021 1:24 PM E DT 3 Units unit/mL) subcutaneous injection vial 0-8 Units 0-8 Units, Subcutaneous, 3 TIMES DAILY WITH MEALS, First dose on [facility] 12/08/21 at 1730, Until Discontinued, MEAL ASSOCIATED [...] Reason: Transfer to a Procedural area)1230 ([facility] Unhold - Provider: Admin Adt)1746 [...] acetaminophen (Tylenol) tablet 650 mg 0805 ([facility] Hold - Provider: Admin Adt - Reason: Transfer to a Procedural area)1230 ([facility] Unhold - Provider: Admin Adt) [...] bisacodyL (Dulcolax) suppository 10 mg 0805 ([facility] Hold - Provider: Admin Adt - Reason: Transfer to a Procedural area)1230 ([facility] Unhold - Provider: Admin Adt) [...] (Intra-Procedure), Routine niCARdipine (Cardene) (100 mcg/mL) dilution (MORTARMAN) (CANCELED) 1030 (Given - Provider: Vitaliy Nobles [...] Reason: Transfer to a Procedural area)1230 ([facility] Unhold - Provider: Admin Adt) [...] episode. & nbsp; For persistent hypoglycemia, con torch operator longer-acting treatment for the duration of [...] documented in this encounter Care Teams Assistant Elementary Teacher Relationship Specialty Start Date End Date Lovely Vicente MD PCP - General 04/16/[address] [place] [address] [address] [place] [address] documented as of this encounter
--- OUTSIDE RECORDS SUMMARY | 2022-03-06 08:07 | XMS_ITS | Encounter Summary ---
:1945 Author Organization [facility] Address [facility] [place] [address] Care Team Providers Name Role Phone Lovely Vicente MD Primary Care Provider Encounter Details Date Type Department Care Team Description 01/02/2020 Office Visit Dermatology at [facility] ctinic keratoses; Abdelrahman HOOPER MD History of melanoma; [address] [facility] History of dysplastic nevus; [place] [address] Multiple benign nevi; [phone] [facility] Seborrheic yossi l[place]; RD-DERMATOLGY Skin exam for malignant neoplasm [place], [place] [address] Social History Tobacco Use Types [...] Vitaliy Nobles MD [facility] [address] [place], [place] [address] (Wo rk) 06/10/2022 Office Visit Dermatology Laura Scherer MD [facility] DR TE[address]DERMAT [place], [place] [address] (Wo rk) documented as of [...] skin documented in this encounter Care Teams Dental Mold Maker Relationship Specialty Start Date End Date Lovely Vicente MD PCP - General 04/16/[address] [place] [address] documented as of this encounter
--- OUTSIDE RECORDS SUMMARY | 2022-03-06 08:07 | XMS_ITS | Encounter Summary ---
:1945 Author Organization [facility] [place] [address] Care Team Providers Name Role Phone Lovely Vicente MD Primary Care Provider Reason for Visit Reason Onset Date Comments Follow-up 07/13/2018 amiodarone discontin ued Encounter Details Date Type Department Care Team Description 07/13/2018 Telephone Cardiology at [facility] Martha Comer, Follow-up (amiodarone [facility] RN discontin ued) [place] [address] Social History Tobacco Use Types Packs/Day [...] RN - 07/13/2018 8:57 AM EST Per ROVING INSPECTOR Hans call placed to the home number for the pt. confirmed that the pt is still taking the amiodarone. Pt is to stop the amiodarone. Pt taking it for post op a-fib, therapy was supposed to be for 30 days. Message given to his . She will give him the message and will have him call with any questions. Call placed to the [facility] pharmacy in [place] to discontinue it there as well. Med list updated. documented in this encounter Plan of Treatment Upcoming Encounters Date Type Specialty Care Team Description 03/26/2022 Office Visit Cardiology Vitaliy Nobles MD [facility] [address] [place], [place] [address] (Wo rk) 06/10/2022 Office Visit Dermatology Laura Scherer MD [facility] DR [address]-DERMAT [place], [place] [address] (Wo rk) documented as of this encounter Visit Diagnoses Not on filedocumented in this encounter Care Teams Gear Straightener Relationship Specialty Start Date End Date Lovely Vicente MD PCP - General 04/16/[address] [place] [address] documented as of this encounter
--- OUTSIDE RECORDS SUMMARY | 2022-03-06 08:07 | XMS_ITS | Encounter Summary ---
:1945 [place] [address] Care Team Providers Name Role Phone Lovely Vicente MD Primary Care Provider Encounter Details Date Type Department Care Team Description 04/16/2021 Office Visit Cardiology at [facility] Liz Poole, Chronic systolic heart [facility] [place] [address] Cardiology Dept [phone] [place], [place] [address] Social History Tobacco Use Types [...] was feeling good. 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 07/07/2019 - 07/21/2019 Zio Patch Fitter/Welder The patient had a minimum heart rate [...] K+ 5.2 today 6. Post-op atrial fibrillation [id number] (CHF, HTN, DM, vascular disease, thromboembolism) [...] Vitaliy Nobles MD [facility] CARDIOLOGY [place], [place] [address] (Wo rk) 06/10/2022 Office Visit Dermatology Laura Scherer MD [facility] DR TEJA GR-[address]MAT [place], [place] [address] (Wo rk) documented as of this encounter Results (ABNORMAL) Basic Metabolic Panel (non-fasting) (04/16/2021 9:58 AM EDT) athologist Signature Glucose Lvl 77 65 - 199 [facility] mg/dL [facility] LABORATORY Comment: Diabetes: >=200 mg/dL plus symp toms BUN 23 (H) 10 - 20 mg/dL [facility] LABORATORY Creatinine 1.26 0.80 - 1.50 mg/dL [facility] LABORATORY Sodium 140 135 - 145 mmol/L [facility] LABORATORY Potassium 5.2 (H) 3.5 - 5.0 mmol/L [facility] [...] Anion Gap 9 5 - 15 mmol/L [facility] LABORATORY Calcium 9.3 8.5 - 10.5 mg/dL [facility] LABORATORY Estimated GFR 55 (L) >=60 [...] Organization Address City/State/[place] [address] (ABNORMAL) pro-Brain Natriuretic Peptide [...] Organization Address City/State/[place] [address] documented in this encounter Visit Diagnoses Diagnosis Chronic systolic heart failure documented in this encounter Care Teams Detail Supervisor Relationship Specialty Start Date End Date Lovely Vicente MD PCP - General 04/16/[address] [place] [address] documented as of this encounter
--- OUTSIDE RECORDS SUMMARY | 2022-03-06 08:07 | XMS_ITS | Encounter Summary ---
:1945 Author Organization [facility] [place] [address] Care Team Providers Name Role Phone Lovely Vicente MD Primary Care Provider Encounter Details Date Type Department Care Team Description 03/20/2021 Ancillary Procedure Radiology Library at [place] [address] [place] [address] [phone] Social History Tobacco Use Types Packs/Day Years [...] Nobles MD [facility] [address] T[address] [place], [place] [address] (Wo rk) 06/10/2022 Office Visit Dermatology Laura Scherer MD [facility] DR TEJA GR[address]DERMAT [place], [place] [address] (Wo rk) documented as of [...] Organization Address City/State/ZIP Code Phon e Number [place], [place] documented in this encounter Visit Diagnoses Not on filedocumented in this encounter Care Teams Medical Aide Relationship Specialty Start Date End Date Lovely Vicente MD PCP - General 04/16/[address] [place] [address] documented as of this encounter
--- OUTSIDE RECORDS SUMMARY | 2022-03-06 08:07 | XMS_ITS | Encounter Summary ---
:1945 Author Organization [facility] [place] [address] Care Team Providers Name Role Phone Lovely Vicente MD Primary Care Provider Reason for Referral Diagnostic Test (Routine) - Specialty Diagnoses / Procedures Referred By Contact Refer red To Contact Cardiology Diagnoses Chronic systolic heart failure Danette Maxwell APRN [facility] Non-Inv Card Lab Procedures Echocardiogram Transthoracic(Leb) [facility] [place] [id number] [place] [address] Referral ID Status Reason Start Date Expiration Visits Visits Date Requested Authorized [id number] Specialty 08/15/2018 08/15/2018 1 1 Service Requested Reason for Visit Diagnostic Test (Routine) - Specialty Diagnoses / Procedures Referred By Contact Nawaf owen To Contact Cardiology Diagnoses Chronic systolic heart failure Danette Maxwell APRN [facility] Non-Inv Card Lab Procedures Echocardiogram Transthoracic(Leb) [facility] [place] [address] [place] [address] Referral ID Status Reason Start Date Expiration Visits Visits Date Requested Authorized [id number] Specialty 08/15/2018 08/15/2018 1 1 Service Requested Encounter Details Date Type Department Care Team Description 08/15/2018 Hospital Encounter Non-Invasive Danette Maxwell Chron ic systolic Cardiology Lab Barbara Gomes APRN heart failure [facility] [place] [address] [place] [phone] [address] (Work) [phone] Social History Tobacco Use Types Packs/Day Years [...] Nobles MD [facility] CARDIOLOGY [place], [place] 0[address] (Wo rk) 06/10/2022 Office Visit Dermatology Laura Scherer MD [facility] DR [address]MAT [place], [place] [address] (Wo rk) documented as [...] Mccollum ? (Age): 1945(73y) Med Rec#: ? [id number] ?Sex: ?M ? [place] Loc: ? [facility] ?Ht / Wt: ??172(cm)/81(kg) Pt. Loc: ?Echo Lab ?BSA: ?1.94 Study Date: ?? 08/15/2018 ?Pt. Type: Outpatient Tape: ? Referring: MARY ELLEN Reading: Scott Ortega ([id number]) Supervisor [employer] [employer]: Laura Sargent Diagnosis: *Chronic systolic (congestive) heart [...] E-wave Vmax ?1.2 ?m/sec ? MV deceleration efks903.4 ? msec ? MV A-wave Vmax ?0.7 [...] ? Mid-Inferior ?Hypokinetic ? Mid-Inferoseptal ?Hypokinetic ? [place]-Septal ? Akinetic ? [place]-Anterior ? Hypokinetic ? [place]-Lateral ?Akinetic ? [place]-Inferior ? Hypokinetic ? [place]-Tip ?Akinetic ? This report has been electronically sign ed by: _ Scott Ortega M.D. ? 08/15/2018 08:17:26 Images reviewed and interpretation elvie hwang [facility] Cardiac Ultrasound Laboratory Procedure Note Scott Ortega MD - 08/15/2018Format ting of this note might be different from the original. Procedure: Transthoracic Echocardiogram Patient: NATALYA MCBRIDE(Age): [birth year]73y) Med Rec#: [id number] Sex: M [place] Loc: [facility] Ht / Wt: 172(cm)/81(kg) Pt. Loc: Echo Lab BSA: 1.94 Study Date: 08/15/2018 Pt. Type: Outpati ent Tape: Referring: MARY ELLEN Reading: Scott Ortega ([id number]) Supervisor [employer]: Laura Sargent Diagnosis: *Chronic systolic (congestive) heart [...] MV E-wave Vmax 1.2 m/sec MV deceleration xgie094.4 msec MV A-wave Vmax 0.7 m/sec MV [...] Akinetic Mid-Posterolateral Akinetic Mid-Inferior Hypokinetic Mid-Inferoseptal Hypokinetic [place]-Septal Akinetic [place]-Anterior Hypokinetic [place]-Lateral Akinetic [place]-Inferior Hypokinetic [place]-Tip Akinetic This report has been electronically sign ed by: _ Scott Ortega M.D. 08/15/2018 08:17: 26 Images reviewed and interpretation verif ied [facility] Cardiac Ultrasound Laboratory Danette Maxwell [...] Routine documented in this encounter Care Teams Rate Examiner Relationship Specialty Start Date End Date Lovely Vicente MD PCP - General 04/16/15 [address] [place] [address] documented as of this encounter
--- OUTSIDE RECORDS SUMMARY | 2022-03-06 08:07 | XMS_ITS | Encounter Summary ---
:1945 [place] [address] Care Team Providers Name Role Phone Lovely Vicente MD Primary Care Provider Reason for Visit Reason Comments Skin Cancer Examination Encounter Details Date Type Department Care Team Description 03/20/2021 Office Visit Dermatology at [facility] Brennen Rene MD History of melanoma; [facility] History of dysplastic nevus; [address] Multiple benign nevi; [place] [address] [facility] [place] (seborrheic keratosis); [phone]-DERMATOLOGY [place] (actinic keratosis) [place], [place] [address] Social History Tobacco Use Types [...] no SOCIAL HISTORY 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 Last visit at [facility] Derm: 01/02/2020 Medications: Reviewed in [...] FSE; history of Melanoma []Note routed to secretary office clerk [x]Recall has been placed in scheduling system []Appointment scheduled at checkout Scribe attestation: Yoana Pang LPN has performed the documentation for this encounter in the presence of and acting as a scribe for LAURA RENE MD I performed the above scribed service and agree with the accuracy of the documentation in this encounter. Reviewed and signed by: LAURA RENE MD Dermatology [facility] documented in this encounter Plan of Treatment Upcoming Encounters Date Type Specialty Care Team Description 03/26/2022 Office Visit Cardiology Vitaliy Nobles MD [facility] [address] [place], [place] [address] (Wo rk) 06/10/2022 Office Visit Dermatology Laura Rene MD [facility] DR [address]MAT [facility] [place], [place] [address] (Wo rk) documented as of this encounter Visit Diagnoses Diagnosis History of melanoma Personal history of malignant melanoma o f skin History of dysplastic nevus Personal history of diseases of skin and subcutaneous tissue Multiple benign nevi Benign neoplasm of skin, site unspecifie d [place] (seborrheic keratosis) Other seborrheic keratosis [place] (actinic keratosis) Actinic keratosis documented in this encounter Care Teams Grails Web Application Developer Relationship Specialty Start Date End Date Lovely Vicente MD PCP - General 04/16/[address] [place] [address] documented as of this encounter
--- OUTSIDE RECORDS SUMMARY | 2022-03-06 08:07 | XMS_ITS | Encounter Summary ---
:1945 Author Organization [facility] [place] [address] Care Team Providers Name Role Phone Lovely Vicente MD Primary Care Provider Reason for Visit Reason Comments Skin Check Encounter Details Date Type Department Care Team Description 07/06/2018 Office Visit Dermatology at Teja Garcia, Rigoberto Yarbrough (actinic keratosis); MD SHAY Quick III (seborrheic keratosis); [address] [facility] History of melanoma; [place] [address] Skin exam for malignant neoplasm [phone] [facility]-DERMATOLGY [place], [place] [address] Social History Tobacco Use Types [...] leg - he had vascular surgery in [facility] while he lost several toes, they [...] MD Section of Dermatology [facility] documented in this encounter Plan of Treatment Upcoming Encounters Date Type Specialty Care Team Description 03/26/2022 Office Visit Cardiology Vitaliy Nobles MD [facility] ER [address] T[address] [place], [place] [address] (Wo rk) 06/10/2022 Office Visit Dermatology Laura Scherer MD [facility] DR [address]MAT [place], [place] [address] (Wo rk) documented as of this encounter Visit Diagnoses Diagnosis [place] (actinic keratosis) Actinic keratosis [place] (seborrheic keratosis) Other seborrheic keratosis History of melanoma Personal history of malignant melanoma o f skin Skin exam for malignant neoplasm Screening for malignant neoplasm of the skin documented in this encounter Care Teams Truck Body Repairer Relationship Specialty Start Date End Date Lovely Vicente MD PCP - General 04/16/[address] [place] [address] documented as of this encounter
--- OUTSIDE RECORDS SUMMARY | 2022-03-06 08:07 | XMS_ITS | Encounter Summary ---
:1945 [place] [address] Care Team Providers Name Role Phone Lovely Vicente MD Primary Care Provider Encounter Details Date Type Department Care Team Description 03/20/2021 Telephone Neurology at [facility] Hugo Gaston MD [facility] [place] [address] [place] [address] [phone] (Wo rk) Social History Tobacco Use Types [...] - 03/20/2021 6:[address] Call from [facility]. 76 M with h/o DM. CABG, [...] Gaston MD Department of Neurology Pager # [phone] documented in this encounter Plan of Treatment Upcoming Encounters Date Type Specialty Care Team Description 03/26/2022 Office Visit Cardiology Vitaliy Nobles MD [facility] [address] T[address] [place], [place] [address] (Wo rk) 06/10/2022 Office Visit Dermatology Laura Scherer MD [facility] [address] [place], [place] [address] (Wo rk) documented as of this encounter Visit Diagnoses Not on filedocumented in this encounter Care Teams Quiller Hand Relationship Specialty Start Date End Date Lovely Vicente MD PCP - General 04/16/[address] [place] [address] documented as of this encounter
--- OUTSIDE RECORDS SUMMARY | 2022-03-06 08:07 | XMS_ITS | Encounter Summary ---
:1945 Author Organization [facility] [place] [address] Care Team Providers Name Role Phone Lovely Vicente MD Primary Care Provider Reason for Referral Diagnostic Test (Routine) - Closed Specialty Diagnoses / Procedures Referred By Contact Refer red To Contact Cardiology Diagnoses Chronic systolic heart failure Danette Maxwell APRN [facility] Non-Inv Card Lab Procedures Echocardiogram Transthoracic(Leb) [facility] [place] [address] [place] [address] Referral ID Status Reason Start Date Expiration Date Visits V isits Requested Authorized [id number] Closed Specialty 07/17/2019 09/14/2019 1 1 Service Requested Reason for Visit Diagnostic Test (Routine) - Closed Specialty Diagnoses / Procedures Referred By Contact Refer red To Contact Cardiology Diagnoses Chronic systolic heart failure Danette Maxwell APRN [facility] Non-Inv Card Lab Procedures Echocardiogram Transthoracic(Leb) [facility] [place] [address] [place] [address] Referral ID Status Reason Start Date Expiration Date Visits V isits Requested Authorized [id number] Closed Specialty 07/17/2019 09/14/2019 1 1 Service Requested Encounter Details Date Type Department Care Team Description 07/28/2019 Hospital Encounter Non-Invasive Chronic s ystolic heart [place] [address] Social History Tobacco Use Types Packs/Day [...] Nobles MD [facility] [address] [place], [place] [address] (Wo rk) 06/10/2022 Office Visit Dermatology Laura Scherer MD [facility] DR [address]DERMAT OLOGY [place], [place] [address] (Wo rk) documented as of [...] Mccollum ? (Age): 1945(74y) Med Rec#: ? [id number] ?Sex: ?M ? Site Loc: ? [facility] ?Ht / Wt: ??172(cm)/81(kg) Pt. Loc: ?Echo Lab ?BSA: ?1.94 Study Date: ?? 07/28/2019 ?Pt. Type: Outpatient Tape: ? Referring: MARY ELLEN Reading: Ifeanyi Truong ([id number]) Educational Psychologist: Fadumo Flanagan RDCS, FASE Diagnosis: *Chronic systolic [...] E-wave Vmax ?1 ?m/sec ? MV deceleration dxie035.5 ? msec ? MV A-wave Vmax ?1 [...] ? Mid-Inferior ?Hypokinetic ? Mid-Inferoseptal ?Normal ? [place]-Septal ? Normal ? [place]-Anterior ? Hypokinetic ? [place]-Lateral ?Normal ? [place]-Inferior ? Akinetic ? [place]-Tip ?Hypokinetic ? This report has been electronically sign ed by: _ Ifeanyi Truong M.D. ? 07/28/2019 0 8:38:01 Images reviewed and interpretation elvie hwang [facility] Cardiac Ultrasound Laboratory Procedure Note Ifeanyi Truong MD - 07/28/2019Formatt ing of this note might be different from the original. Procedure: Transthoracic Echocardiogram Patient: NATALYA MCBRIDE(Age): [birth year]74y) Med Rec#: [id number] Sex: M [place] [facility] Ht / Wt: 172(cm)/81(kg) Pt. Loc: Echo Lab BSA: 1.94 Study Date: 07/28/2019 Pt. Type: Outpati ent Tape: Referring: MARY ELLEN Reading: Ifeanyi Truong ([id number]) Educational Psychologist: Fadumo Flanagan RDCS, REGINA Diagnosis: *Chronic systolic [...] MV E-wave Vmax 1 m/sec MV deceleration kkmj138.5 msec MV A-wave Vmax 1 m/sec MV [...] Normal Mid-Posterolateral Normal Mid-Inferior Hypokinetic Mid-Inferoseptal Normal [place]-Septal Normal [place]-Anterior Hypokinetic [place]-Lateral Normal [place]-Inferior Akinetic [place]-Tip Hypokinetic This report has been electronically sign ed by: _ Ifeanyi Truong M.D. 07/28/2019 08:38:0 1 Images reviewed and interpretation verif ied [facility] Danette Maxwell APRN ECHO [...] documented in this encounter Care Teams Senior Technical Project Manager Relationship Specialty Start Date End Date Lovely Vicente MD PCP - General 04/16/[address] [place] [address] documented as of this encounter
--- OUTSIDE RECORDS SUMMARY | 2022-03-06 08:07 | XMS_ITS | Encounter Summary ---
:1945 [place] [address] Care Team Providers Name Role Phone Lovely Vicente MD Primary Care Provider Encounter Details Date Type Department Care Team Description 08/15/2018 Laboratory Appointment Lab [address] [place] [address] Social History Tobacco Use Types Packs/Day [...] Vitaliy Nobles MD [facility] [address] [place], [place] [address] (Wo rk) 06/10/2022 Office Visit Dermatology Laura Scherer MD [facility] DR TE[address] [place], [place] [address] (Wo rk) documented as of this encounter Procedures Procedure Name Priority Date/Time Associated Diagnosis Comme nts PROTHROMBIN TIME Routine 08/15/2018 8:04 AM Resul ts for this EST procedure are i n the results section. documented in this encounter Results (ABNORMAL) Prothrombin Time (08/15/2018 8:04 AM EST) P athologist Signature PT 24.0 (H) 9.4 - 12.5 [facility] LABORATORY INR 2.1 [facility] [...] Organization Address City/State/[place] [address] documented in this encounter Visit Diagnoses Not on filedocumented in this encounter Care Teams Stone Carriage Operator Relationship Specialty Start Date End Date Lovely Vicente MD PCP - General 04/16/[address] [place] [address] documented as of this encounter
--- OUTSIDE RECORDS SUMMARY | 2022-03-06 08:07 | XMS_ITS | Encounter Summary ---
:1945 Author Organization [facility] [place] [address] Care Team Providers Name Role Phone Lovely Vicente MD Primary Care Provider Encounter Details Date Type Department Care Team Description 11/29/2017 Hospital Encounter Vascular Lab at [facility] (peripheral [facility], RVT artery [place] [facility] [place] [phone] Social History Tobacco Use Types Packs/Day Years [...] Vitaliy Nobles MD [facility] ER DR TADE[address] [place], [place] [address] (Wo rk) 06/10/2022 Office Visit Dermatology Laura Scherer MD [facility] DR [address]-DERMAT OLOGY [place], [place] [address] (Wo rk) documented as of this encounter [...] [facility] Method Time Signature VB Text Department: Vascular Surgery Lab VASCUBASE Report Patient: [id number] (DON HOANG) CPT: 91708 ICD10: I72.4;I73.9 Referring Physician: DANETTE MAXWELL ?? [...] unspecified documented in this encounter Care Teams Workday Manager Relationship Specialty Start Date End Date Lovely Vicente MD PCP - General 04/16/[address] [place] [address] documented as of this encounter
--- OUTSIDE RECORDS SUMMARY | 2022-03-06 08:07 | XMS_ITS | Encounter Summary ---
:1945 Author Organization [place] [address] Care Team Providers Name Role Phone Lovely Vicente MD Primary Care Provider Encounter Details Date Type Department Care Team Description 08/15/2018 Laboratory Lab 3L [place] Chronic systoli c heart failure; Appointment [facility] ASCVD (ar teriosclerotic cardiovascular disease) [place] [address] Social History Tobacco Use Types [...] MD [facility] ER DR TADEO [place], [place] [address] (Wo rk) 06/10/2022 Office Visit Dermatology Laura Scherer MD [facility] DR [address]-DERMAT OLOGY [place], [place] [address] (Wo rk) documented as of [...] Signature Glucose Lvl 116 65 - 199 [facility] mg/dL [facility] Comment: Diabetes: >=200 mg/dL plus symp toms BUN 21 (H) 10 - 20 mg/dL [facility] LABOR[facility]ORY Creatinine 1.08 0.80 - [...] 15 mmol/L [facility] Calcium 9.0 8.5 - 10.5 mg/dL [facility] Estimated GFR 68 >=60 mL/min/1.73 m?? [facility] Comment: The eGFR was calculated using the CKD-EP I equation. As with all creatinine based estimates of kidney function, eGFR values calculated with the CKD-EPI equation are not accurate in patients wi th acute kidney failure, extremes of body mass or the acutely ill. http://[employer]/[facility] eGFR 79 >=60 mL/min/1.73 m?? [facility] Comment: The eGFR was calculated using the CKD-EP I equation. As with all creatinine based estimates of kidney function, eGFR values calculated with the CKD-EPI equation are not accurate in patients wi th acute kidney failure, extremes of body mass or the acutely ill. http://[employer]/[facility] Specimen Anatomical Collection Method Collection Time Receive d Time (Source) Location / / Volume Laterality Blood specimen 08/15/2018 8:04 AM 019 8:20 (specimen) EST AM EST Resulting Agency Comment Spec In Lab Danettebrock Maxwell APRN CHEMISTRY ORDERABLES Performing Organization Address City/State/[place] [address] Lipid Panel (08/15/2018 8:04 AM EST) P athologist Signature Chol, Total 75 mg/dL [facility] Comment: Lower Risk: <200 mg/dL Average Risk: 200-239 mg/dL Higher Risk: >wj=596 mg/dL Triglycerides 185 mg/dL [facility] Comment: Average Risk/Lower Risk: <150 mg/dL Borderline High Risk: 150-199 mg/dL High Risk: 200-499 mg/dL Very High Risk: >ts=984 mg/dL HDL 32 mg/dL [facility] Comment: Males: ?? Higher Risk: <40 mg/dL Females: ?? HIgher Risk: <50 mg/dL LDL Cholesterol 6 mg/dL [facility] Comment: Lowest Risk: <100 mg/dL Lower Risk: 100-129 mg/dL Borderline High Risk: 130-159 mg/dL High Risk: 160-189 mg/dL Very High Risk: >mg=537 mg/dL Chol/HDL Ratio 2.3 ratio [facility] Lipid Interpretation See Note [facility] Comment: Lipid management should be guided by a p atient? s ASCVD risk, goals and preferences. ACC/AHA Guidelines recommend high intens ity statin if clinical ASCVD or LDL greater than or equal to 190 mg/dL. http://tinyurl.com/KRG-ZIS-Snfkkbkja Adults aged 40-75 with LDL 70-189 mg/dL should have their 10 year ASCVD risk estimated with the ACC/AHA ASCVD risk es timator http://tools.acc.org/KENSK-Laae-Crzzvgby r/ Statin should be discussed if risk [...] Agency Comment Spec In Lab Danette Maxwell FREEZING ROOM WORKER CHEMISTRY ORDERABLES Performing Organization Address City/State/[place] [address] (ABNORMAL) pro-Brain Natriuretic Peptide (08/15/2018 8:04 AM EST) P athologist Signature ProBNP 1,797 (H) <=125 [facility] pg/mL [facility] Specimen Anatomical Collection Method Collection Time Receive d Time (Source) Location / / Volume Laterality Blood specimen 08/15/2018 8:04 AM 019 8:20 (specimen) EST AM EST Resulting Agency Comment Spec In Lab Danette Maxwell APRN CHEMISTRY ORDERABLES Performing Organization Address City/State/[place] [address] documented in this encounter Visit Diagnoses Diagnosis Chronic systolic heart failure ASCVD (arteriosclerotic cardiovascular d isease) Unspecified cardiovascular disease documented in this encounter Care Teams Assembler Dry Cell And Battery Relationship Specialty Start Date End Date Lovely Vicente MD PCP - General 04/16/[address] [place] [address] (work) documented as of this encounter
--- OUTSIDE RECORDS SUMMARY | 2022-03-06 08:07 | XMS_ITS | Encounter Summary ---
:1945 Author Organization [facility] [place] [address] Care Team Providers Name Role Phone Lovely Vicente MD Primary Care Provider Encounter Details Date Type Department Care Team Description 12/07/2021 Telephone Cardiology Eddi Briceño Jr., [facility] [place] [address] [facility] [phone] CARDIOLOGY DEPT [place], [place] [address] (Wo rk) Social History [...] [facility] Referring Provider: Marisela Dean, PRODUCE BUYER [address] [place] [address] Don Veda Kushal 76 y.o. w / [...] bpm, LAFB, poor R wave progression, septal LA, and lateral STD, overall no significantchange from [...] Nobles MD [facility] [address] [place], [place] [address] (Mikayla alcaraz) 06/10/2022 Office Visit Dermatology Laura Scherer MD [facility] DR TE[address] GR-DERMAT OGY [place], [place] [address] (Wo rk) documented as of this encounter Visit Diagnoses Not on filedocumented in this encounter Care Teams Roughing Mill Operator Relationship Specialty Start Date End Date Lovely Vicente MD PCP - General 04/16/[address] [place] [address] documented as of this encounter
--- OUTSIDE RECORDS SUMMARY | 2022-03-06 08:07 | XMS_ITS | Encounter Summary ---
:1945 Author Organization [facility] [place] [address] Care Team Providers Name Role Phone Lovely Vicente MD Primary Care Provider Reason for Visit Reason Onset Date Comments Other 03/24/2019 cardiac clearance ne eded Encounter Details Date Type Department Care Team Description 03/24/2019 Telephone Cardiology at [facility] Danette Maxwell, Other (cardiac [facility] MICROWAVE SUPERVISOR clearance needed) [place] [address] CARDIOLOGY [place], [place] [address] (Wo rk) Social History Tobacco [...] AM EDT Leonela from [facility] [place] called requesting cardiac clearance for this patient who is to have a colonoscopy on 04/04/19. He is on anticoagulation and they will need to bridge him. Their phone # [phone], fax# [phone]. Thank you. documented in this encounter Plan of Treatment Upcoming Encounters Date Type Specialty Care Team Description 03/26/2022 Office Visit Cardiology Vitaliy Nobles MD [facility] [address] [place], [place] [address] (Wo rk) 06/10/2022 Office Visit Dermatology Laura Scherer MD [facility] DR [address] GR[address] OGY [place], [place] [address] (Wo rk) documented as of this encounter Visit Diagnoses Not on filedocumented in this encounter Care Teams Lining Stamper Relationship Specialty Start Date End Date Lovely Vicente MD PCP - General 04/16/[address] [place] [address] documented as of this encounter
--- OUTSIDE RECORDS SUMMARY | 2022-03-06 08:07 | XMS_ITS | Encounter Summary ---
:1945 Author Organization [facility] [place] [address] Care Team Providers Name Role Phone Lovely Vicente MD Primary Care Provider Encounter Details Date Type Department Care Team Description 04/18/2018 Laboratory Appointment Lab [address]L [facility] [place] [address] Social History Tobacco Use Types Packs/Day Years [...] Nobles MD [facility] CARDIOLOGY [place], [place] [address] (Wo rk) 06/10/2022 Office Visit Dermatology Laura Scherer MD [facility] DR TE[address] GR-DERMAT OLOGY [place], [place] [address] (Wo rk) documented as of [...] Signature Total Protein 7.6 6.1 - 8.0 [facility] gm/dL [facility] LABORATORY Albumin 4.0 3.2 - 5.2 [place] [facility] gm/dL [facility] LABORATORY AST 36 0 - 39 [facility] unit/L [facility] ALT 27 0 - 55 [facility] unit/L [facility] LABOR[facility]ORY Alk Phos 96 40 - 120 [facility] unit/L [facility] LABORATORY Total 0.7 0.2 - 1.3 [facility] Bilirubin mg/dL [facility] LABORATORY Bili, Direct 0.1 0.0 - 0.3 [facility] mg/dL [facility] LABOR[facility]ORY Specimen Anatomical Collection Method Collection Time Receive d Time (Source) Location / / Volume Laterality Blood specimen Venous Draw / 04/18/2018 9:19 AM 2017 9:44 (specimen) Unknown EDT AM EDT Resulting Agency Comment Spec In Lab Danette Maxwell APRN CHEMISTRY ORDERABLES Performing Organization Address City/[facility] [place] [address] TSH (04/18/2018 9:19 AM EDT) athologist Signature TSH 1.77 0.27 - 4.20 [facility] mlU/ML [facility] LABORATORY Specimen Anatomical Collection Method Collection Time Receive d Time (Source) Location / / Volume Laterality Blood specimen Venous Draw / 04/18/2018 9:19 AM 2017 9:44 (specimen) Unknown EDT AM EDT Resulting Agency Comment Spec In Lab Danette Maxwell APRN CHEMISTRY ORDERABLES Performing Organization Address City/State/[place] [address] (ABNORMAL) Basic Metabolic Panel (non-fasting) (04/18/2018 9:19 AM EDT) P athologist Signature Glucose Lvl 167 65 - 199 [facility] mg/dL [facility] [...] Chloride 101 98 - 107 mmol/L [facility] CO2 23 22 - 31 mmol/L [facility] Anion Gap 23 (H) 5 - 15 mmol/L [facility] Calcium 9.3 8.5 - 10.5 mg/dL [facility]OR[facility] Estimated GFR 61 >=60 mL/min/1.73 m?? [facility] Comment: The eGFR was calculated using the CKD-EP I equation. As with all creatinine based estimates of kidney function, eGFR values calculated with the CKD-EPI equation are not accurate in patients wi th acute kidney failure, extremes of body mass or the acutely ill. http://[employer]/[facility] CITYnkf eGFR 70 >=60 mL/min/1.73 m?? [facility] Comment: The eGFR was calculated using the CKD-EP I equation. As with all creatinine based estimates of kidney function, eGFR values calculated with the CKD-EPI equation are not accurate in patients wi th acute kidney failure, extremes of body mass or the acutely ill. http://[employer]/[facility] OK[facility] CITYnkf Specimen Anatomical Collection Method Collection Time Receive d Time (Source) Location / / Volume Laterality Blood specimen 04/18/2018 9:19 AM 018 9:34 (specimen) EDT AM EDT Resulting Agency Comment Spec In Lab Danette Maxwell STACIE CHEMISTRY ORDERABLES Performing Organization Address City/State/[place] [address] (ABNORMAL) pro-Brain Natriuretic Peptide (04/18/2018 9:19 AM EDT) P athologist Signature ProBNP 2,199 (H) <=125 [facility] pg/mL [facility] Specimen Anatomical Collection Method Collection Time Receive d Time (Source) Location / / Volume Laterality Blood specimen 04/18/2018 9:19 AM 018 9:34 (specimen) EDT AM EDT Resulting Agency Comment Spec In Lab Danette Gomes [place] STACIE CHEMISTRY ORDERABLES Performing Organization Address City/[facility]/[place] [address] documented in this encounter Visit Diagnoses Diagnosis Chronic systolic heart failure documented in this encounter Care Teams White Lead Grinder Relationship Specialty Start Date End Date Lovely Vicente MD PCP - General 04/16/[address] [place] [address] documented as of this encounter
--- OUTSIDE RECORDS SUMMARY | 2022-03-06 08:07 | XMS_ITS | Encounter Summary ---
:1945 Author Organization [facility] [place] [address] Care Team Providers Name Role Phone Lovely Vicente MD Primary Care Provider Encounter Details Date Type Department Care Team Description 08/26/2018 Transcribe Orders Laboratory Lovely Vicente, Deferred diagnosis [facility] on axis I [address] [address] [place], [place] [phone] [address] Social History Tobacco Use Types Packs/Day Years [...] MD [facility] ER DR TADE[address] [place], [place] [address] (Wo rk) 06/10/2022 Office Visit Dermatology Laura Scherer MD [facility] DR [address]LOG[address] [place], [place] [address] (Wo rk) documented as of this encounter Visit Diagnoses Diagnosis Deferred diagnosis on axis I Other unknown and unspecified cause of m orbidity or mortality documented in this encounter Care Teams Autopsy Pathologist Relationship Specialty Start Date End Date Lovely Vicente MD PCP - General 04/16/15 [address] [place] [address] documented as of this encounter
--- OUTSIDE RECORDS SUMMARY | 2022-03-06 08:07 | XMS_ITS | Encounter Summary ---
:1945 Author Organization [facility] [place] [address] Care Team Providers Name Role Phone Lovely Vicente MD Primary Care Provider Encounter Details Date Type Department Care Team Description 12/07/2021 Ancillary Procedure Radiology Library at Lovely Candelaria MD [facility] [address] [phone] (Wo lissa) [address] [phone] Social History Tobacco Use Types Packs/Day Years [...] MD [facility] ER DR T[address] [place], [place] [address] (Wo rk) 06/10/2022 Office Visit Dermatology Laura Scherer MD [facility] ER DR TEJA GR[address]DERMAT OLOGY [place], [place] [address] (Wo rk) documented as [...] Organization Address City/State/ZIP Code Phon e Number [place], [place] documented in this encounter Visit Diagnoses Not on filedocumented in this encounter Care Teams Cash Register Balancer Relationship Specialty Start Date End Date Lovely Vicente MD PCP - General 04/16/[address] [place] [address] documented as of this encounter
--- OUTSIDE RECORDS SUMMARY | 2022-03-06 08:07 | XMS_ITS | Encounter Summary ---
:1945 Author Organization [facility] Address [facility] [place] [address] Care Team Providers Name Role Phone Lovely Vicente MD Primary Care Provider Reason for Referral Diagnostic Test (Routine) - Specialty Diagnoses / Procedures Referred By Contact Refer red To Contact Cardiology Diagnoses Chronic systolic heart failure Danette Maxwell APRN [facility] Non-Inv Card Lab Procedures Echocardiogram Transthoracic(Leb) [facility] [place] [address] [place] [address] Referral ID Status Reason Start Date Expiration Visits Visits Date Requested Authorized [id number] Specialty 08/15/2018 08/15/2018 1 1 Service Requested Encounter Details Date Type Department Care Team Description 04/18/2018 Office Visit Cardiology at [facility] Danette Maxwell Chronic systolic heart failu re; [facility] STACIE Gomes On amiodarone therapy; [facility] Ischemic cardiomyopathy; [place], [place] DR ONOFRE (arteriosclerotic cardiovascular d isease) [phone] CARDIOLOGY [phone] [place], [place] [address] Social History Tobacco Use Types Packs/Day Years [...] in this encounter Progress Notes Danette Maxwell, PHYS ASSISTANT - 04/18/2018 10:40 AM EDT ID and [...] of abdominal wall ??? Urinary retention ??? MAIRA VICTORIA (obstructive sleep apnea) on CPAP ??? [...] x 80 10/25/2017: right popliteal-pedal bypass at [facility] ? Plan: 1. A review [...] Nobles MD [facility] CARDIOLOGY [place], [place] [address] (Wo rk) 06/10/2022 Office Visit Dermatology Laura Scherer MD [facility] [address] [place] [address] (Wo rk) documented as of this encounter Results ECHOCARDIOGRAM COMPLETE W CONTRAST (08/15/2018 7:55 AM EST) P athologist Signature EF 35 HEARTLAB SYSTEM Specimen (Source) Anatomical Location Collection Method / Collectio n Time Received Time / Laterality Volume 08/15/2018 Narrative HEARTLAB SYSTEM - 08/15/2018 8:18 AM EST Procedure: ?Transthoracic Echocardiogram Patient: ?NATALYA Mccollum ? (Age): 1945(73y) Med Rec#: ? [id number] ?Sex: ?M ? Site Loc: ? [facility] ?Ht / Wt: ??172(cm)/81(kg) Pt. Loc: ?Echo Lab ?BSA: ?1.94 Study Date: ?? 08/15/2018 ?Pt. Type: Outpatient Tape: ? Referring: MARY ELLEN Reading: Scott Ortega ([id number]) Rotary Shear Operator: Laura Sargent Diagnosis: *Chronic systolic (congestive) [...] E-wave Vmax ?1.2 ?m/sec ? MV deceleration qehp400.4 ? msec ? MV A-wave Vmax ?0.7 [...] ? Mid-Inferior ?Hypokinetic ? Mid-Inferoseptal ?Hypokinetic ? Cutler-Septal ? Akinetic ? Cutler-Anterior ? Hypokinetic ? Cutler-Lateral ?Akinetic ? Cutler-Inferior ? Hypokinetic ? Cutler-Tip ?Akinetic ? This report has been electronically sign ed by: _ Scott Ortega M.D. ? 08/15/2018 08:17:26 Images reviewed and interpretation elvie hwang [facility] Cardiac Ultrasound Laboratory Procedure Note Scott Ortega MD - 08/15/2018Format ting of this note might be different from the original. Procedure: Transthoracic Echocardiogram Patient: NATALYA MCBRIDE(Age): [birth year]73y) [facility] Rec#: [id number] Sex: M Site Loc: [facility] Ht / Wt: 172(cm)/81(kg) Pt. Loc: Echo Lab BSA: 1.94 Study Date: 08/15/2018 Pt. Type: Outpati ent Tape: Referring: MARY ELLEN Reading: Scott Ortega ([id number]) Rotary Shear Operator: Laura Sargent Diagnosis: *Chronic systolic (congestive) [...] MV E-wave Vmax 1.2 m/sec MV deceleration deqi326.4 msec MV A-wave Vmax 0.7 m/sec MV [...] Akinetic Mid-Posterolateral Akinetic Mid-Inferior Hypokinetic Mid-Inferoseptal Hypokinetic Cutler-Septal Akinetic Cutler-Anterior Hypokinetic Cutler-Lateral Akinetic Cutler-Inferior Hypokinetic Cutler-Tip Akinetic This report has been electronically sign ed by: _ Scott Ortega M.D. 08/15/2018 08:17: 26 Images reviewed and interpretation elvie ludwigd [facility] Cardiac Ultrasound Laboratory Danette Maxwell APRN ECHO ORDERABLES Performing Organization Address City/State/ZIP Code Phon e Number HEARTLAB SYSTEM (ABNORMAL) Basic Metabolic Panel (non-fasting) (04/18/2018 9:19 AM EDT) P athologist Signature Glucose Lvl 167 65 - 199 [facility] mg/dL [facility] Comment: Diabetes: >=200 mg/dL plus symp toms BUN 18 10 - 20 mg/dL [facility] Creatinine 1.19 0.80 - 1.50 mg/dL [facility] Sodium 147 (H) 135 - 145 mmol/L [facility] [...] mmol/L [facility] Anion Gap 23 (H) 5 - 15 mmol/L [facility] Calcium 9.3 8.5 - 10.5 mg/dL [facility] Estimated GFR 61 >=60 mL/min/1.73 m?? [facility] Comment: The eGFR was calculated using the CKD-EP I equation. As with all creatinine based estimates of kidney function, eGFR values calculated with the CKD-EPI equation are not accurate in patients wi th acute kidney failure, extremes of body mass or the acutely ill. [email or web address]/[email or web address] eGFR 70 >=60 mL/min/1.73 m?? [facility] Comment: The eGFR was calculated using the CKD-EP I equation. As with all creatinine based estimates of kidney function, eGFR values calculated with the CKD-EPI equation are not accurate in patients wi th acute kidney failure, extremes of body mass or the acutely ill. [email or web address] Specimen Anatomical Collection Method Collection Time Receive d Time (Source) Location / / Volume Laterality Blood specimen 04/18/2018 9:19 AM 018 9:34 (specimen) EDT AM EDT Resulting Agency Comment Spec In Lab Danette Eliseo Lyon STACIE CHEMISTRY ORDERABLES Performing Organization Address City/State/ZIP Code Phon e Number [address] (ABNORMAL) pro-Brain Natriuretic Peptide (04/18/2018 9:19 AM EDT) P athologist Signature ProBNP 2,199 (H) <=125 [facility] pg[facility] Specimen Anatomical Collection Method Collection Time Receive d Time (Source) Location / / Volume Laterality Blood specimen 04/18/2018 9:19 AM 018 9:34 (specimen) EDT AM EDT Resulting Agency Comment Spec In Lab Danette Eliseo Hans QUINONES CHEMISTRY ORDERABLES Performing Organization Address City/[facility]/ZIP Code [place] [address] documented in this encounter Visit Diagnoses Diagnosis Chronic systolic heart failure On amiodarone therapy Ischemic cardiomyopathy Other specified forms of chronic ischemi c heart disease ASCVD (arteriosclerotic cardiovascular d isease) Unspecified cardiovascular disease Chronic systolic heart failure documented in this encounter Care Teams Real Estate Investment Analyst Relationship Specialty Start Date End Date Lovely Vicente MD PCP - General 04/16/[address] [place] [address] documented as of this encounter
--- OUTSIDE RECORDS SUMMARY | 2022-03-06 08:07 | XMS_ITS | Encounter Summary ---
:1945 Author Organization [facility] [place] [address] Care Team Providers Name Role Phone Lovely Vicente MD Primary Care Provider Encounter Details Date Type Department Care Team Description 01/16/2019 Laboratory Appointment Lab 3L [facility] [place] [id number] Social History Tobacco Use Types Packs/Day Years [...] [facility] CARDIOLOGY [place], [place] [address] (Wo rk) 06/10/2022 Office Visit Dermatology Laura Scherer MD [facility] [address] [place], [place] [address] (Wo rk) documented as [...] Organization Address City/State/[place] [address] (ABNORMAL) Basic Metabolic Panel (non-fasting) (01/16/2019 7:49 AM EDT) P athologist Signature Glucose Lvl 105 65 - 199 [facility] mg/dL [facility] Comment: Diabetes: >=200 mg/dL plus symp toms BUN 25 (H) 10 - 20 mg/dL [facility] Creatinine 1.08 0.80 - 1.50 mg/dL [facility] [...] of body mass or the acutely ill. http://Africasana/[facility] CITYnkf eGFR 79 >=60 mL/min/1.73 m?? [facility] Comment: The eGFR was calculated using the CKD-EP I equation. As with all creatinine based estimates of kidney function, eGFR values calculated with the CKD-EPI equation are not accurate in patients wi th acute kidney failure, extremes of body mass or the acutely ill. http://Africasana/[facility] CITYnkf Specimen Anatomical Collection Method Collection Time Receive d Time (Source) Location / / Volume Laterality Blood specimen 01/16/2019 7:49 AM 019 7:55 (specimen) EDT AM EDT Resulting Agency Comment Spec In Lab Danette Maxwell APRN CHEMISTRY ORDERABLES Performing Organization Address City/State/[place] [address] documented in this encounter Visit Diagnoses Diagnosis Chronic systolic heart failure documented in this encounter Care Teams Cash Applications Clerk Relationship Specialty Start Date End Date Lovely Vicente MD PCP - General 04/16/[address] [place] [address] documented as of this encounter
--- OUTSIDE RECORDS SUMMARY | 2022-03-06 08:07 | XMS_ITS | Encounter Summary ---
:1945 Author Organization [facility] [address] Care Team Providers Name Role Phone Lovely Vicente MD Primary Care Provider Encounter Details Date Type Department Care Team Description 11/07/2019 TH Visit Cardiology at [facility] Danette Maxwell (arteriosclerotic heart disease); (TeleHealth) [facility] STACIE Gomes Cardiomyopathy, ischemic; Drive [facility] S/P CABG x 3; [place], [place] MARIA VICTORIA (obstructive sleep apnea) on CPAP [phone] CARDIOLOGY [phone] [place], [place] [address] Social History Tobacco Use Types [...] regurgitation present. 07/07/2019 - 07/21/2019 Zio Patch [place] Programs Director The patient had a minimum heart rate [...] at last check 6. Post-op atrial fibrillation [id number] 7 (CHF, HTN, DM, vascular disease, thromboembolism) Amiodarone discontinued Continue coumadin INR managed by PCP 7. PAD 08/06/2017: Right 1st, 2nd, 3rd toe amputation 08/11/2017: Left??femoral arterial access, RLE??angiogram, Balloon angioplasty of R PT with Eleazar 2.5 x 80 10/25/2017: right popliteal-pedal bypass at [facility] Continue Coumadin 8. Hypothyrodism S/p thyroidectomy [...] MD [facility] [address] [place], [place] [address] (Wo rk) 06/10/2022 Office Visit Dermatology Laura Scherer MD [facility] DR [address] [place], [place] [address] (Wo rk) documented as of this encounter Visit Diagnoses Diagnosis ASHD (arteriosclerotic heart disease) Coronary atherosclerosis of unspecified type of vessel, [place] or graft Cardiomyopathy, ischemic Other specified forms of chronic ischemi c heart disease S/P CABG x 3 Postsurgical aortocoronary bypass status MARIA VICTORIA (obstructive sleep apnea) on CPAP Obstructive sleep apnea (adult) (pediatr ic) documented in this encounter Care Teams Car Worker Relationship Specialty Start Date End Date Lovely Vicente MD PCP - General 04/16/[address] [place] [address] [address] [place] [address] documented as of this encounter
--- OUTSIDE RECORDS SUMMARY | 2022-03-06 08:07 | XMS_ITS | Encounter Summary ---
:1945 Author Organization [facility] [place] [address] Care Team Providers Name Role Phone Lovely Vicente MD Primary Care Provider Reason for Visit Reason Comments Establish Care Atrial Fibrillation Congestive Heart Failure Cardiomyopathy Encounter Details Date Type Department Care Team Description 09/06/[facility] Osvaldo STRANGE [address] [facility] [facility] [address] [place], [place] CARDIOLOGY DEPT. [address] [place] [address] [phone] Social History Tobacco Use Types Packs/Day Years [...] today For any questions, call my office: [phone] To access your health care information, go to the web at: [email or web address] (you will need to register) For educational materials: [email or web address] Karel TRAMMELL.[facility], Clinical Cardiac Electrophysiology, [facility], [facility] A Healthy Heart: After Your Visit [...] least 2 servings of fish a week. [place], mackerel, mcfadden, sardines, and chunk light tuna [...] irregular heartbeat. After you call 911, the small machine bindery operator may tell you to chew 1 [...] more? Visit our health information library at [email or web address]. You can also view health information on [employer], your personal patient account. Log in or sign up today. Enter F075 in the search box to learn more about A Healthy Heart: After Your Visit. ?? [id number] [employer] documented in this encounter Progress Notes Karel Mcelroy MD - 09/06/2019 2:20 PM EST Images from the original note were not included. Section of Cardiology/Cardiac Electrophysiology [facility] Clinical Cardiac Electrophysiology Consult Patient ID Don Fatima 1945 [id number] Don Fatima is referred to the EP clinic by Danette Maxwell APRN PhD Chief Complaint Dyspnea on exertion Ischemic cardiomyopathy History This is a 74 y.o. male following up/being seen in clinic for evaluation for ongoing anticoagulation. He has a Dcfnt3Ygpa score of ~ 6-7. 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 blow, can walk [...] on phone: None Gets together: None Attends caodaism service: None Active member of club or [...] reviewed the ECG: sinus rhythm, 72 bpm, MT 140 ms, QRS 100 ms, QT 400 [...] EP clinic KAREL MCELROY MD Cardiac Electrophysiology [facility] T: [phone] F: [phone] 35 minutes of this 40 minute encounter were spent in counselling, as described above Cc: MD Danette Cr APRN PhD Janett Espino DPM documented in this encounter Plan of Treatment Upcoming Encounters Date Type Specialty Care Team Description 03/26/2022 Office Visit Cardiology Vitaliy Nobles MD [facility] ER [address] [place], [place] [address] (Wo rk) 06/10/2022 Office Visit Dermatology Laura Scherer MD [facility] ER DR [address]MAT OLOGY [place], [place] [address] (Wo rk) documented as of [...] 446 ms MUSE SYSTEM (Bezet) Calculated P [place] 37 degrees MUSE SYSTEM Calculated R [place] -23 degrees MUSE SYSTEM Calculated T [place] 116 degrees MUSE SYSTEM INTERPRETATION Normal sinus rhythm MUSE SYSTEM Inferior infarct (cited on or before 25-JAN-2013) ST & T wave abnormality, consider anterolateral ischemia Abnormal ECG When compared with ECG of 19-AUG-2017 10:23, No significant change was found Confirmed by MD Castellon Daniel ([id number]) on 09/08/2019 10:22:4 7 AM Specimen Anatomical [...] disease documented in this encounter Care Teams Physical Therapy Supervisor Relationship Specialty Start Date End Date Lovely Vicente MD PCP - General 04/16/[address] [place] [address] documented as of this encounter
--- OUTSIDE RECORDS SUMMARY | 2022-03-06 08:07 | XMS_ITS | Encounter Summary ---
:1945 Author Organization [facility] [place] [address] Care Team Providers Name Role Phone Lovely Vicente MD Primary Care Provider Encounter Details Date Type Department Care Team Description 07/28/2019 Office Visit Cardiology at [facility] Danette Maxwell Chronic systolic heart failu re; [facility] A, STACIE ASHD (arteriosclerotic heart disease); Drive [facility] S/P CABG x 3; [place], [place] MARIA VICTORIA (obstructive sleep apnea) on CPAP; [phone] CARDIOLOGY Mixed hyperlipidemia [phone] [place], [place] [address] Social History Tobacco Use [...] in this encounter Progress Notes Danette Maxwell, SCREENPLAY WRITER - 07/28/2019 9:40 AM EST Images from [...] regurgitation present. 07/07/2019 - 07/21/2019 Zio Patch Piercer Operator The patient had a minimum heart [...] K+ 4.5 today 6. Post-op atrial fibrillation [id number] 7 (CHF, HTN, DM, vascular disease, thromboembolism) Amiodarone discontinued Continue coumadin INR managed by PCP 7. PAD 08/06/2017: Right 1st, 2nd, 3rd toe amputation 08/11/2017: Left??femoral arterial access, RLE??angiogram, Balloon angioplasty of R PT with Eleazar 2.5 x 80 10/25/2017: right popliteal[facility]pedal bypass at [facility] 8. Hypothyrodism S/p thyroidectomy for goiter [...] advised: Refer to EP (Dr. Mcelroy in [place]) 5. Heart Failure Clinic follow up scheduled for: 3 months with proBNP and BMP Danette Maxwell APRN 07/28/2019 documented in this encounter Plan of Treatment Upcoming Encounters Date Type Specialty Care Team Description 03/26/2022 Office Visit Cardiology Vitaliy Nobles MD [facility] ER [address] [place], [place] [address] (Wo rk) 06/10/2022 Office Visit Dermatology Laura Scherer MD [facility] DR [address]MAT OLOGY [place], [place] [address] (Wo rk) documented as of this encounter Results (ABNORMAL) Basic Metabolic Panel (non-fasting) (07/28/2019 8:36 AM EST) athologist Signature Glucose Lvl 153 65 - 199 [facility] mg/dL [facility] Comment: Diabetes: >=200 mg/dL plus symp toms BUN 22 (H) 10 - 20 mg/dL [facility] 15 mmol/L [facility] Calcium 9.3 8.5 - 10.5 mg/dL [facility] Estimated GFR 70 >=60 mL/min/1.73 m?? [facility] Comment: The eGFR was calculated using the CKD-EP I equation. As with all creatinine based estimates of kidney function, eGFR values calculated with the CKD-EPI equation are not accurate in patients wi th acute kidney failure, extremes of body mass or the acutely ill. [email or web address]/[facility] CITYnkf eGFR 81 >=60 mL/min/1.73 m?? [facility] Comment: The eGFR was calculated using the CKD-EP I equation. As with all creatinine based estimates of kidney function, eGFR values calculated with the CKD-EPI equation are not accurate in patients wi th acute kidney failure, extremes of body mass or the acutely ill. [email or web address]/[facility] CITYnkf Specimen Anatomical Collection Method Collection Time Receive d Time (Source) Location / / Volume Laterality Blood specimen 07/28/2019 8:36 AM 020 8:46 (specimen) EST AM EST Resulting Agency Comment Spec In Lab Danette Maxwell STACIE CHEMISTRY ORDERABLES Performing Organization Address City/State/[place] [address] (ABNORMAL) pro-Brain Natriuretic Peptide (07/28/2019 8:36 AM EST) athologist Signature ProBNP 647 (H) <=125 pg/mL [facility] Specimen Anatomical Collection Method Collection Time Receive d Time (Source) Location / / Volume Laterality Blood specimen 07/28/2019 8:36 AM 020 8:46 (specimen) EST AM EST Resulting Agency Comment Spec In Lab Danette Maxwell STACIE CHEMISTRY ORDERABLES Performing Organization Address City/State/[place] [address] documented in this encounter Visit Diagnoses Diagnosis Chronic systolic heart failure ASHD (arteriosclerotic heart disease) Coronary atherosclerosis of unspecified type of vessel, circle or graft S/P CABG x 3 Postsurgical aortocoronary bypass status MARIA VICTORIA (obstructive sleep apnea) on CPAP Obstructive sleep apnea (adult) (pediatr ic) Mixed hyperlipidemia documented in this encounter Care Teams Payroll Benefits Administrator Relationship Specialty Start Date End Date Lovely Vicente MD PCP - General 04/16/[address] [place] [address] documented as of this encounter
--- OUTSIDE RECORDS SUMMARY | 2022-03-06 08:07 | XMS_ITS | Encounter Summary ---
:1945 Author Organization [facility] [place] [address] Care Team Providers Name Role Phone Lovely Vicente MD Primary Care Provider Encounter Details Date Type Department Care Team Description 03/20/2021 Ancillary Procedure Radiology Library [place] [address] [place] [address] [phone] Social History Tobacco Use Types Packs/Day Years [...] MD [facility] [address] [place], [place] [address] (Wo rk) 06/10/2022 Office Visit Dermatology Laura Scherer MD [facility] [address] [place]LOG[place], [place] [address] (Wo rk) documented as [...] Organization Address City/State/ZIP Code Phon e Number [place], [place] documented in this encounter Visit Diagnoses Not on filedocumented in this encounter Care Teams Manager Zone Relationship Specialty Start Date End Date Lovely Vicente MD PCP - General 04/16/[address] [place] [address] documented as of this encounter
--- OUTSIDE RECORDS SUMMARY | 2022-03-06 08:07 | XMS_ITS | Encounter Summary ---
:1945 [place] [address] Care Team Providers Name Role Phone Lovely Vicente MD Primary Care Provider Encounter Details Date Type Department Care Team Description 07/12/2019 Office Visit Dermatology at [facility], Rigoberto Yarbrough (actinic keratosis); MD SHAY Quick III (seborrheic keratosis); [address] [facility] Multiple benign nevi; [place] [address] History of melanoma [phone] [facility] [place], [place] [address] Social History Tobacco Use Types [...] MD [facility] [address] T[address] [place], [place] [address] (Wo rk) 06/10/2022 Office Visit Dermatology Laura Scherer MD [facility] [address] OGY [place], [place] [address] (Wo rk) documented as of this encounter Visit Diagnoses Diagnosis AK (actinic keratosis) Actinic keratosis SK (seborrheic keratosis) Other seborrheic keratosis Multiple benign nevi Benign neoplasm of skin, site unspecifie d History of melanoma Personal history of malignant melanoma o f skin documented in this encounter Care Teams Healthcare Financial Analyst Relationship Specialty Start Date End Date Lovely Vicente MD PCP - General 04/16/[address] [place] [address] documented as of this encounter
--- OUTSIDE RECORDS SUMMARY | 2022-03-06 08:07 | XMS_ITS | Encounter Summary ---
:1945 Author Organization [facility] [place] [address] Care Team Providers Name Role Phone Lovely Vicente MD Primary Care Provider Encounter Details Date Type Department Care Team Description 07/28/2019 Laboratory Appointment Lab 3L [facility] systolic [facility] [place] [id number] Social History Tobacco Use Types Packs/Day Years [...] Nobles MD [facility] CARDIOLOGY [place], [place] [address] (Wo rk) 06/10/2022 Office Visit Dermatology Laura Scherer MD [facility] DR TEJA GR-DERMAT OLOGY [place], [place] [address] (Wo rk) documented as of [...] [place] [address] (ABNORMAL) Basic Metabolic Panel (non-fasting) (07/28/2019 8:36 AM EST) athologist Signature Glucose Lvl 153 65 - 199 [facility] mg/dL [facility] Comment: Diabetes: >=200 mg/dL plus symp toms BUN 22 (H) 10 - 20 mg/dL [facility] [...] - 15 mmol/L [facility] Calcium 9.3 8.5 - 10.5 [...] of body mass or the acutely ill. http://[employer]/[facility] eGFR 81 >=60 mL/min/1.73 m?? [facility] Comment: The eGFR was calculated using the CKD-EP I equation. As with all creatinine based estimates of kidney function, eGFR values calculated with the CKD-EPI equation are not accurate in patients wi th acute kidney failure, extremes of body mass or the acutely ill. http://[employer]/[facility] [place] [place] Specimen Anatomical Collection Method Collection Time Receive d Time (Source) Location / / Volume Laterality Blood specimen 07/28/2019 8:36 AM 020 8:46 (specimen) EST AM EST Resulting Agency Comment Spec In Lab Danette Maxwell APRN CHEMISTRY ORDERABLES Performing Organization Address City/State/ZIP Code Phon e Number [place] [phone] documented in this encounter Visit Diagnoses Diagnosis Chronic systolic heart failure documented in this encounter Care Teams Kindergartners Helper Relationship Specialty Start Date End Date Lovely Vicente MD PCP - General 04/16/[address] [place] [address] documented as of this encounter
--- OUTSIDE RECORDS SUMMARY | 2022-03-06 08:07 | XMS_ITS | Encounter Summary ---
:1945 [address] [facility] [place] [address] Care Team Providers Name Role Phone Lovely Vicente MD Primary Care Provider Encounter Details Date Type Department Care Team Description 12/08/2021 External Results Non-Invasive Cardiology Lab Mar y None [facility] [place] [address] Social History Tobacco Use Types Packs/Day [...] MD [facility] [address] [place], [place] [address] (Wo rk) 06/10/2022 Office Visit Dermatology Laura Scherer MD [facility] DR TEJA GR-DERMAT [facility] [place] [place] [address] (Wo rk) documented [...] filedocumented in this encounter Care Teams Dairy Cattle Farm Worker Relationship Specialty Start Date End Date Lovely Vicente MD PCP - General 04/16/[address] [place] [address] documented as of this encounter
--- OUTSIDE RECORDS SUMMARY | 2022-03-06 08:07 | XMS_ITS | Encounter Summary ---
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 Post-op atrial fibrillation [id number] (CHF, HTN, DM, vascular disease, thromboembolism) [...] Vitaliy Nobles MD [facility] [address] [place], [place] [address] (Wo rk) 06/10/2022 Office Visit Dermatology Laura Scherer MD [facility] DR TEJA GR-DERMAT OLOGY [place], [place] [address] (Wo rk) documented as of this encounter Results Lipid Panel (08/15/2018 8:04 AM EST) athologist Signature Chol, Total 75 mg/dL [facility] Comment: Lower Risk: <200 mg/dL Average Risk: 200-239 mg/dL Higher Risk: >hl=602 mg/dL Triglycerides 185 mg/dL [facility] Comment: Average Risk/Lower Risk: <150 mg/dL Borderline High Risk: 150-199 mg/dL High Risk: 200-499 mg/dL Very High Risk: >rr=536 mg/dL HDL 32 mg/dL [facility] Comment: Males: ?? Higher Risk: <40 mg/dL Females: ?? HIgher Risk: <50 mg/dL LDL Cholesterol 6 mg/dL [facility] Comment: Lowest Risk: <100 mg/dL Lower Risk: 100-129 mg/dL Borderline High Risk: 130-159 mg/dL High Risk: 160-189 mg/dL Very High Risk: >kj=503 mg/dL Chol/HDL Ratio 2.[address] [facility] Lipid Interpretation See Note [facility] Comment: Lipid management should be guided by a p atient? s ASCVD risk, goals and preferences. ACC/AHA Guidelines recommend high intens ity statin if clinical ASCVD or LDL greater than or equal to 190 mg/dL. http://Savingspoint Corporationurl.com/WYU-SZU-Wdvijtbkc Adults aged 40-75 with LDL 70-189 mg/dL should have their 10 year ASCVD risk estimated with the ACC/AHA ASCVD risk es timator http://tools.acc.org/ZJBON-Tiqi-Idyvvict r/ Statin should be discussed if risk [...] Organization Address City/State/Z[place] [address] (ABNORMAL) Basic Metabolic Panel (non-fasting) (08/15/2018 8:04 AM EST) P athologist Signature Glucose Lvl 116 65 - 199 [facility] mg/dL [facility] Comment: Diabetes: >=200 mg/dL plus symp toms BUN 21 (H) 10 - 20 mg/dL [facility] Creatinine 1.08 0.80 - 1.50 mg/dL [facility] Sodium 144 135 - 145 mmol/L [facility] Potassium 4.6 3.5 - 5.0 mmol/L [facility] [...] Calcium 9.0 8.5 - 10.5 mg/dL [facility] Estimated GFR 68 >=60 mL/min/1.73 m?? [facility] Comment: The eGFR was calculated using the CKD-EP I equation. As with all creatinine based estimates of kidney function, eGFR values calculated with the CKD-EPI equation are not accurate in patients wi th acute kidney failure, extremes of body mass or the acutely ill. http://[employer]/[facility] eGFR 79 >=60 mL/min/1.73 m?? [facility] Comment: The eGFR was calculated using the CKD-EP I equation. As with all creatinine based estimates of kidney function, eGFR values calculated with the CKD-EPI equation are not accurate in patients wi th acute kidney failure, extremes of body mass or the acutely ill. http://[employer]/DHMCnkf Specimen Anatomical Collection Method Collection Time Receive d Time (Source) Location / / Volume Laterality Blood specimen 08/15/2018 8:04 AM 019 8:20 (specimen) EST AM EST Resulting Agency Comment Spec In Lab Danette Eliseo Hans QUINONES CHEMISTRY ORDERABLES Performing Organization Address City/State/ZIP Code Phon e Number [address] (ABNORMAL) pro-Brain Natriuretic Peptide (08/15/2018 8:04 AM EST) P athologist Signature ProBNP 1,797 (H) <=125 [facility] pg/mL [facility] Specimen Anatomical Collection Method Collection Time Receive d Time (Source) Location / / Volume Laterality Blood specimen 08/15/2018 8:04 AM 019 8:20 (specimen) EST AM EST Resulting Agency Comment Spec In Lab Danette Eliseo Hans QUINONES CHEMISTRY ORDERABLES Performing Organization Address City/State/[place] [address] documented in this encounter Visit Diagnoses Diagnosis Chronic systolic heart failure Cardiomyopathy, ischemic Other specified forms of chronic ischemi c heart disease ASCVD (arteriosclerotic cardiovascular d isease) Unspecified cardiovascular disease Essential hypertension Unspecified essential hypertension MARIA VICTORIA on CPAP Obstructive sleep apnea (adult) (pediatr ic) documented in this encounter Care Teams Dietitian Consultant Relationship Specialty Start Date End Date Lovely Vicente MD PCP - General 04/16/[address] [place] [address] documented as of this encounter
--- OUTSIDE RECORDS SUMMARY | 2022-03-06 08:07 | XMS_ITS | Encounter Summary ---
:1945 Author Organization [facility] [place] [address] Care Team Providers Name Role Phone Lovely Vicetne MD Primary Care Provider Encounter Details Date Type Department Care Team Description 04/16/2021 Laboratory Appointment Lab 3L [facility] systolic [facility] [place] [phone] Social History Tobacco Use Types Packs/Day Years [...] Nobles MD [facility] CARDIOLOGY [place], [place] [address] (Wo rk) 06/10/2022 Office Visit Dermatology Laura Scherer MD [facility] DR TEJA GR-DERMAT OLOGY [place], [place] [address] (Wo rk) documented as of [...] Organization Address City/State/[place] [address] (ABNORMAL) Basic Metabolic Panel (non-fasting) (04/16/2021 9:58 AM EDT) athologist Signature Glucose Lvl 77 65 - 199 [facility] mg/dL [facility] Comment: Diabetes: >=200 mg/dL plus symp toms BUN 23 (H) 10 - 20 mg/dL [facility] Creatinine 1.26 0.80 - 1.50 mg/dL [facility] Sodium 140 135 - 145 mmol/L [facility] Potassium 5.2 (H) 3.5 - 5.0 mmol/L [facility] [...] Organization Address City/State/[place] [address] documented in this encounter Visit Diagnoses Diagnosis Chronic systolic heart failure documented in this encounter Care Teams Auto Dealership Porter Relationship Specialty Start Date End Date Lovely Vicente MD PCP - General 04/16/[address] [place] [address] documented as of this encounter
--- OUTSIDE RECORDS SUMMARY | 2022-03-06 08:07 | XMS_ITS | Encounter Summary ---
:1945 [place] [address] Care Team Providers Name Role Phone Lovely Vicente MD Primary Care Provider Encounter Details Date Type Department Care Team Description 11/29/2017 Hospital Encounter Radiology Library at Estefany Maxwell Pain [facility] [employer] [facility] [place] [address] CARDIOLOGY [phone] [place], [place] [address] (Wo rk) Social History Tobacco [...] Team Description 03/26/2022 Office Visit Cardiology Vitaliy Nolbes MD [facility] [address] [place], [place] [address] (Wo rk) 06/10/2022 Office Visit Dermatology Laura Scherer MD [facility] [address] OLOGY [place], [place] [address] (Wo rk) documented as [...] Time Received Time / Laterality Volume Narrative [facility] - 12/28/2017 11:07 AM EDT This exam is for storage only and is aut o-finalizing. Danette Maxwell APRN IMMarc FILM LIBRARY ORDERABLES Performing Organization Address City/State/ZIP Code Phon e Number [place], [place] documented in this encounter Visit Diagnoses Diagnosis Pain Generalized pain documented in this encounter Care Teams Outboard Motor Mechanic Relationship Specialty Start Date End Date Lovely Vicente MD PCP - General 04/16/[address] [facility] [address] [place] [address] documented as of this encounter
--- OUTSIDE RECORDS SUMMARY | 2022-03-06 08:07 | XMS_ITS | Encounter Summary ---
:1945 Author Organization [facility] [place] [address] Care Team Providers Name Role Phone Lovely Vicente MD Primary Care Provider Reason for Visit Auth/Cert Specialty Diagnoses / Procedures Referred By Contact Refer red To Contact Diagnoses NSTEMI Procedures emerg ipi Referral ID Status Reason Start Date Expiration Date Visits Requ ested Visits Authorized [id number] 1 1 Encounter Details Date Type Department Care Team Description 12/10/2021 Surgery Concrete Inspector Asa Coulter MD CARDIAC CATHETERIZATION [facility] [place] [address] [place] [address] [place] [address] [phone] (Wo rk) Social History Tobacco Use Types [...] Don Fatima Patient Age: 76 y.o. Language: Nicaraguan Race: White Ethnicity: Not nor Admit date: [...] Peter PA-C Kelly LaFlamme PA-C Cardiovascular Medicine [phone] Discharge Diagnoses (Hospital Problems) and Secondary Diagnoses [...] 3.75 guiding catheter and a 3.5 Fr [facility] 20 Mhz using Manual pullback. Imaging was successful. Image quality was good. The ostial LCX showed moderate diffuse atherosclerotic plaque with scattered three quadrant calcification. Measurements were performed after pre-dilation. Post Intervention: The stent was well expanded and apposed. Intravascular Ultrasound was performed in the distal LM using a 7 Fr EBU 3.75 guiding catheter and a 3.5 Fr [facility] [place] 20 Mhz using Manual pullback. Imaging was successful. Image quality was good. The distal LM showed moderate diffuse atherosclerotic plaque. Post Intervention: The stent was well expanded and apposed. Indication for Intervention: Coronary intervention was indicated for primary therapy for an acute myocardial infarction. The priority for the procedure was Urgent. The [facility] indication for the procedure was NSTE-ACS. [...] vascular congestion and cardiomegaly. ?? TTE from [facility] 12/08/21 ? Prior Cardiac Studies: TTE [...] prior thyroidectomy in 2012 who presented to [facility] with 1 week progressing breathlessness with [...] 03/2021 with Liz Poole PA-C. ?? At [facility], respiratory distress with hypoxia 86% on [...] appointments: During 8am-5pm Wednesday through Wednesday call [phone] to speak with a nurse in the cardiology clinic All other times call [phone] and ask to speak to the event marketing manager bacon de rinder. Return to work: One week Driving: No driving for 48 hours after catheterization. Follow up Appointments: PCP Lovely Vicente MD [phone] to see patient at the end of December for annual check up. Patient to see Dr. Lorenzana at 1120 am at December 19 for a post hospital check up. Director Trading Dr. De Oliveira to see you in [facility]. Left a message for office to set a date and time. Please call [phone] Nobles to see the patient for a same day cath in 2-3 weeks from now. Office to call with a date and time. For questions please call [phone] Home oxygen therapy: N/A Arrangements for VNA/home care: none Future Appointments and Orders Future Orders Complete By Expires Basic Metabolic Panel (non-fasting) [LAB15 Custom] 12/19/2021 (Approximate) 12/12/2022 Process Instructions: INCLUDES: Calcium, BUN, Creat, GFR, Glucose, Lytes Scheduling Instructions: Comments: Questions: Referral to Cardiac Rehab [HGA365 Custom] As directed Process Instructions: If no [...] appointments: During 8am-5pm Wednesday through Wednesday call [phone] to speak with a nurse in the cardiology clinic All other times call [phone] and ask to speak to the event marketing manager bacon de rinder. Return to work: One week Driving: No driving for 48 hours after catheterization. Follow up Appointments: PCP Lovely Vicente MD [phone] to see patient at the end of December for annual check up. Patient to see Dr. Lorenzana at 1120 am at December 19 for a post hospital check up. Director Trading Dr. De Oliveira to see you in [facility]. Left a message for office to set a date and time. Please call [phone] Nobles to see the patient for a same day cath in 2-3 weeks from now. Office to call with a date and time. For questions please call [phone] Home oxygen therapy: N/A Arrangements for VNA/home [...] Progress Note Patient Name: Don Fatima Service: TOMATO GRADER / PA Responsible Attending: Ifeanyi Truong MD [...] was given Lasix 80mg IV x1 in rangelands conservation laborer. Tolerated procedure well. Home today at 11 [...] TROPONINT 1.13* 0.92* 0.89* Pertinent Radiographic/Diagnostic Results: R/[facility] 12/10/21 Hemodynamics: Right Heart Pressures Resting: [...] pulmonary vascular congestion and cardiomegaly. TTE from [facility] 12/08/21 Prior Cardiac Studies: TTE 07/28/2019 [...] with MD Janneth Neville PA 12/12/2021 Pager [phone] Associated attestation - Ifeanyi Truong MD - [...] [facility] Management Pager [phone] 20 minutes of this 35 minute visit [...] Progress Note Patient Name: Don Fatima Service: TOMATO GRADER / PA Responsible Attending: Iker Cuevas MD [...] was given Lasix 80mg IV x1 in rangelands conservation laborer. Tolerated procedure well. Review of Systems: Review [...] Intake/Output Summary (Last 24 hours) at 12/11/2021 0921 Last data filed at 12/11/2021 0508 Gross [...] pulmonary vascular congestion and cardiomegaly. TTE from [facility] 12/08/21 Prior Cardiac Studies: TTE 07/28/2019 [...] and answered his questions. Iker Cuevas MD [facility] Total time spent on review of records prior to visit, face to face time with patient during visit, documentation, and coordination of care with other clinicians: 25 minutes. . Iker Cuevas MD - 12/10/2021 12:30 PM EDT Images from the original note were not included. Inpatient Cardiology Progress Note Patient Name: Don Fatima Service: TOMATO GRADER / PA Responsible Attending: Iker Cuevas MD [...] was given Lasix 80mg IV x1 in rangelands conservation laborer. Tolerated procedure well. Review of Systems: Review [...] pulmonary vascular congestion and cardiomegaly. TTE from [facility] 12/08/21 Prior Cardiac Studies: TTE 07/28/2019 [...] Discussed with MD Migdalia Peter PA-C Pager #[phone] 12/10/2021 Cardiology Attending Note I have seen [...] updated and given pictures. Iker Cuevas MD [facility] Total time spent on review of records prior to visit, face to face time with patient during visit, documentation, and coordination of care with other clinicians: 35 minutes. Iker Cuevas MD - 12/09/2021 7:28 AM EDT Images from the original note were not included. Inpatient Cardiology Progress Note Patient Name: Don Fatima Service: TOMATO GRADER / PA Responsible Attending: Iker Cuevas MD [...] pulmonary vascular congestion and cardiomegaly. TTE from [facility] 12/08/21 Prior Cardiac Studies: TTE 07/28/2019 [...] Discussed with MD Migdalia Peter PA-C Pager #[phone] 12/09/2021 Cardiology Attending Note I have seen and examined the patient. I agree with the findings above. Developed CHF early this am despite getting more iv lasix last evening. Feeling better now. INR > 2. Lungs still wet at base. Echo at [facility] showed EF 35% with mild mod MR slightly lower than last value here. -vit K 2.5 orally to facilitate correction of INR- this will take 12-24 hours to take effect -furosemide 80 mg iv now -postpone right and left heart cath until tomorrow given INR and ADHF -increase statin to achieve LDL < 70 -CPAP tonight Iker Cuevas MD [facility] Total time spent on review [...] prior thyroidectomy in 2012 who presented to [facility] with 1 week progressing breathlessness with [...] visit 03/2021 with Liz Poole PA-C. At [facility], respiratory distress with hypoxia 86% on [...] SETUP performed by Manny Mcknight MD at [facility] MAIN OR ??? PRO AMPUTATION FOOT, TRANSMETATARSAL Right 08/09/2017 AMPUTATION, TRANSMETATARSAL (WRVU 12.71) performed by Yonathan Smith MD at [facility] MAIN OR ??? PRO CABG, ARTERIAL, SINGLE N/A 07/07/2017 @CABG, USING ARTERIAL GRAFT;SINGLE ARTERIAL GRAFT (WRVU 33.75) performed by Yuan Retana MD at [facility] MAIN OR ??? PRO CABG, ARTERY-VEIN, TWO N/A 07/07/2017 @CABG, TWO VENOUS GRAFTS & ARTERIAL GRAFT (WRVU 7.93) performed by Yuan Retana MD at [facility] MAIN OR ??? PRO COLONOSCOPY, REMV LESN, SNARE 01/16/2014 COLONOSCOPY, POLYPECTOMY, REMOVAL LESION BY SNARE performed by Nohemi Jaimes MD at [facility] ENDOSCOPY ??? PRO DRESSING CHANGE UNDER ANESTHESIA Right 08/11/2017 (MSURG) DRESSING CHANGE (FOR OTHER THAN IVAN) UNDER ANES. (WRVU 0.86) performed by Lamar Smith MD at [facility] MAIN OR ??? PRO ENDOSCOPY W/VIDEO-ASST VEIN HARVEST, CABG Right 07/07/2017 ENDOSCOPIC HARVEST VEIN(S) FOR CABG (WRVU 0.31) performed by Yuan Retana MD at [facility] MAIN OR ??? PRO THYROIDECTOMY 03/28/2013 THYROIDECTOMY, TOTAL OR COMPLETE performed by Manny Mcknight MD at [facility] MAIN OR Significant Family History: [...] (H) 65 - 199 mg/dL Labs at [facility] 12/08/2021-troponin I 8004 (UN L <60), [...] Monitor for ADRs. Trend troponins. Admission EKG. [facility] 12/09; consented. TTE. Telemetry monitoring, daily [...] code #Diet-carb control; n.p.o. after midnight for [facility] #DVT prophy- heparin infusion #GI prophy- PPI Discussed with MD Morgan Peter PA-C APP2 pager [phone] 12/08/2021 Cardiology Attending Note I have seen [...] Iker Cuevas MD [facility] documented in this encounter Miscellaneous Notes [...] Type: *No Product type* / Secondary Insurance: [email or web address] [place] Prescription Coverage: Yes This [...] cath without complications. Migdalia Parker PA-C Pager #[phone] 12/10/2021 Initial Assessments - Nick Georges RN [...] COVID test: Lab Results Component Value Date [id number] Not Detected 12/08/2021 Past medical History: Past [...] [facility] must abide by [place] law. The hierarchy [...] (i) The agent with financial power of estate planning attorney or a conservator appointed in accordance [...] - standard, cane - straight Home Address: [address] [place] [address] [place] [address] Social & Family Supports: All names listed below confirmed with patient as current and correct Extended Emergency Contact Information Primary Emergency Contact: Kisha Fatima Address: [address] [place] [address] [place] [address] [facility] Mobile Relation: Spouse Secondary Emergency Contact: Elba Swenson Address: [address] Mobile Relation: Child Current Care Provided [...] *No Product type* / Secondary Insurance: [facility] Prescription Coverage: Yes Preferred Pharmacy: [facility] [address] [id number] - [place], [place] - [address] [address] [place] Status: Patient is a : unable to assess Primary Care Provider: Lovely Vicente MD [phone] Patient/Caregiver Goals of Treatment: Get out of here Potential Needs for Transition of Care: none Agency Referrals: none patient has used [facility] in the past Transportation: no concerns Transportation Anticipated: family or friend will provide Concerns to be Addressed: patient refuses services, discharge planning Assessment: Patient is admitted to [facility] Service pager [phone] for 76 y.o.??male??with h/o??CAD s/p 3vCABG (THOMPSON-LAD, [...] status on current unit. Nick Georges RN metal stud framer, Office of Care Management Pager: [phone] Brief Op Note - Vitaliy Nobles MD - 12/10/2021 8:31 AM EDT Images from the original note were not included. [place] [address] CORONARY ANGIOGRAM AND PERCUTANEOUS CORONARY INTERVENTION REPORT Patient: Don Fatima : 1945 MR number: [id number] Date of Service: 12/10/2021 Concrete Hopper Operator: Vitaliy Nobles MD Fellow: [place] [...] management and to provide a review of exterminator diabetes care. Diabetes History: Don Fatima has had diabetes for 10 years. He has been on insulin for the last several years andis managed by his PCP. Lives in [place], [place] with his . States that he [...] 5 gm carb ratio for each meal) shelter diabetes care: Medications - Outpatient treatment regimen recommendations pending based on the hospital course. Monitoring - continue BG tid ac & hs Diet - low fat/low carb diet Exercise - weight-bearing exercise 30 min/day, as tolerated Thank you for allowing us to provide care for your patient Desirae Jett APRN Endocrinology Pager [phone] 70 minutes of this 80 minute visit [...] for further details. STEPHANIE Rebolledo 12/08/2021 Pager [phone] documented in this encounter Plan of Treatment Upcoming Encounters Date Type Specialty Care Team Description 03/26/2022 Office Visit Cardiology Vitaliy Nobles MD [facility] [address] [place], [place] [address] (Wo rk) 06/10/2022 Office Visit Dermatology Laura Scherer MD [facility] [address] [place], [place] [address] (Wo rk) Scheduled Referrals Name [...] POC Glucose 215 (H) 65 - 199 [facility] mg/dL [facility] Comment: Supplemental ranges: <140 mg/dL before meals <180 mg/dL all other times of the day Specimen Anatomical Collection Method Collection Time Receive d Time (Source) Location / / Volume Laterality Blood 12/12/2021 7:42 AM 7:42 EDT AM EDT Ifeanyi Truong MD POINT OF CARE TEST ORDERABLE S Performing Organization Address City/State/ZIP [place] [address] (ABNORMAL) Differential, Automated (12/12/2021 4:51 AM EDT) P athologist Signature Neutrophils % 75.4 % [facility] Neutr Abs (ANC) 5.95 1.70 - [facility] 6.10 [facility] x10(3)/[facility] LABORATORY Lymphocytes % 12.2 % [facility] Lymphocytes Abs 1.0 0.9 - 3.2 [facility] x10(3)/[facility] LABORATORY Monocytes % 9.5 % [facility] Monocyte Abs 0.8 0.3 - 0.9 [facility] x10(3)/[facility] LABORATORY Eosinophils % 1.8 % [facility] Eosinophils Abs 0.1 0.0 - 0.4 [facility] x10(3)/[facility] LABORATORY Basophils % 0.5 % [facility] Basophils Abs 0.0 0.0 - 0.1 [facility] x10(3)/[facility] LABORATORY Immature Gran % 0.60 % [facility] [...] Address City/State/ZIP [place] [address] (ABNORMAL) Hemogram (12/12/2021 4:51 AM EDT) Analysis Performed At Patho logist Time Signature WBC 7.9 4.0 - 9.5 [facility] x10(3)/[facility] LABORATORY RBC 4.19 (L) 4.58 - [facility] RYAN 5.54 [facility] x10(6)/[facility] LABORATORY Hemoglobin 12.1 (L) 13.7 - [facility] 16.5 g/dL [facility] Hematocrit 36.7 (L) 40.5 - [facility] 48.5 % [facility] MCV 87.6 82.9 - [facility] 93.1 [facility] LABORATORY MCH 28.9 27.5 - [facility] 32.1 pg [facility] MCHC 33.0 32.0 - [facility] 35.7 g/dL [facility] Platelets 231 145 - 357 [facility] x10(3)/[facility] LABORATORY RDWSD 47.2 (H) 36.0 - [facility] 45.0 [facility] LABORATORY RDWCV 14.6 (H) 11.4 - [facility] 13.8 % [facility] MPV 9.5 7.6 - 12.9 [facility] LABORATORY nRBC % Auto 0.0 % [facility] nRBC Abs Auto 0.000 0.000 - [facility] 0.000 [facility] x10(3)/[facility] LABORATORY Specimen Anatomical Collection Method Collection Time Receive d Time (Source) Location / / Volume Laterality Blood 12/12/2021 4:51 AM 5:06 EDT AM EDT Resulting Agency Comment Spec In Lab Bijan Sun MD HEMATOLOGY ORDERABLES Performing Organization Address City/State/ZIP [place] [address] (ABNORMAL) Prothrombin Time (12/12/2021 4:51 AM EDT) P athologist Signature PT 14.9 (H) 9.4 - 12.5 [facility] LABORATORY INR 1.3 [facility] [...] Organization Address City/State/ZIP Code Phon e Number [place] [id number] (ABNORMAL) BMP w/fasting Glucose (12/12/2021 4:51 AM EDT) athologist Signature Glucose 152 (H) 65 - 99 [facility] Fasting mg/dL [facility] Comment: ?Fasting* Glucose Interpretive [...] of Diabetes Mellitus, Position Statement from the [place] [employer]. ??Diabete s Care, Volume 33, Supplement 1, Jul 2009 BUN 52 (H) 10 - 20 mg/dL [facility] Creatinine 1.72 (H) 0.80 - 1.50 mg/dL [facility] Sodium 143 135 - 145 mmol/L [facility] Potassium 3.9 3.5 - 5.0 mmol/L [facility] [...] 15 mmol/L [facility] Calcium 8.9 8.5 - 10.5 mg/dL [facility] Estimated GFR 38 (L) >=60 [...] CHEMISTRY ORDERABLES Performing Organization Address City/[facility]/ZIP Code Phon e Number [address] Magnesium (12/12/2021 4:51 AM EDT) P athologist Signature Magnesium 1.02 0.69 - 1.07 [facility] mmol/L [facility] Specimen Anatomical Collection Method Collection Time Receive d Time (Source) Location / / Volume Laterality Blood 12/12/2021 4:51 AM 2 5:06 EDT AM EDT Resulting Agency Comment Spec In Lab Iker Cuevas MD CHEMISTRY ORDERABLES Performing Organization Address City/[facility]/ZIP [place] [address] POCT Glucose (12/12/2021 3:43 AM EDT) athologist Signature POC Glucose 138 65 - 199 [place] mg/dL [facility] Comment: Supplemental ranges: <140 mg/dL before meals <180 mg/dL all other times of the day Specimen Anatomical Collection Method Collection Time Receive d Time (Source) Location / / Volume Laterality Blood 12/12/2021 3:43 AM 2 3:43 EDT AM EDT Iker Cuevas MD POINT OF CARE TEST ORDERABLE S Performing Organization Address City/State/ZIP [place] [address] POCT Glucose (12/11/2021 11:44 PM EDT) athologist Signature POC Glucose 124 65 - 199 [facility] RYAN mg/dL [facility] Comment: Supplemental ranges: <140 mg/dL before meals <180 mg/dL all other times of the day Specimen Anatomical Collection Method Collection Time Receive d Time (Source) Location / / Volume Laterality Blood 12/11/2021 11:44 12/11/2021 PM EDT 11:44 PM EDT Iker Cuevas MD POINT OF CARE TEST ORDERABLE S Performing Organization Address City/State/ZIP [place] [address] (ABNORMAL) POCT Glucose (12/11/2021 8:12 PM EDT) athologist Signature POC Glucose 200 (H) 65 - 199 [place] mg/dL [facility] Comment: Supplemental ranges: <140 mg/dL before meals <180 mg/dL all other times of the day Specimen Anatomical Collection Method Collection Time Receive d Time (Source) Location / / Volume Laterality Blood 12/11/2021 8:12 PM 2 8:12 EDT PM EDT Iker Cuevas MD POINT OF CARE TEST ORDERABLE S Performing Organization Address City/State/ZIP [place] [address] (ABNORMAL) POCT Glucose (12/11/2021 6:50 PM EDT) athologist Signature POC Glucose 245 (H) 65 - 199 [facility] mg/dL [facility] Comment: Supplemental ranges: <140 mg/dL before meals <180 mg/dL all other times of the day Specimen Anatomical Collection Method Collection Time Receive d Time (Source) Location / / Volume Laterality Blood 12/11/2021 6:50 PM 2 6:50 EDT PM EDT Iker Cuevas MD POINT OF CARE TEST ORDERABLE S Performing Organization Address City/State/ZIP [place] [address] (ABNORMAL) POCT Glucose (12/11/2021 4:00 PM EDT) athologist Signature POC Glucose 383 (H) 65 - 199 [facility] mg/dL [facility] Comment: Supplemental ranges: <140 mg/dL before meals <180 mg/dL all other times of the day Specimen Anatomical Collection Method Collection Time Receive d Time (Source) Location / / Volume Laterality Blood 12/11/2021 4:00 PM 2 4:00 EDT PM EDT Iker Cuevas MD POINT OF CARE TEST ORDERABLE S Performing Organization Address City/State/ZIP [place] [address] (ABNORMAL) POCT Glucose (12/11/2021 12:01 PM EDT) athologist Signature POC Glucose 342 (H) 65 - 199 [facility] RYAN mg/dL [facility] Comment: Supplemental ranges: <140 mg/dL before meals <180 mg/dL all other times of the day Specimen Anatomical Collection Method Collection Time Receive d Time (Source) Location / / Volume Laterality Blood 12/11/2021 12:01 12/11/2021 PM EDT 12:01 PM EDT Iker Cuevas MD POINT OF CARE TEST ORDERABLE S Performing Organization Address City/State/ZIP [place] [address] COVID-19 PCR (12/11/2021 10:13 AM EDT) [facility] Method Time Signature SARS-CoV-2 Not Detected Not Detected [facility] Comment: This [...] diagnosis of COVID-19 is performed using the [employer] S-CoV-2 Assay as authorized by the FDA Emergency Use Authorization (EUA). This EUA assay is intended for In-vitro Diagnostic (IVD) use with respiratory sp ecimens such as nasopharyngeal swabs collected from individuals during the ac terrence phase of infection. This assay is performed based on the instructions for use provided by [employer], [employer]. and additional guidance provided by CDC and FDA. Testing is performed in the Clinical Genomics and Advanced Technolog y Laboratory within the Department of Pathology and Laboratory Medicine at [facility], certified under the Clinical Laboratory [...] fact sheets at the following FDA website: https://www.fda.gov/medical-devices/zovhwfmfaqm-xjkeuvz-8704-aqswb-70-msxjohmaf- lrg-medjygpjzctsse-dnvorlr-devices/glkey-asdvrmhkorn-goom SARS-Cov-2 RNA Source TOMATO GRADER Swab [facility] Specimen (Source) Anatomical Collection Method Collection Time Re ceived Time Location / / Volume Laterality Nasopharyngeal Swab 12/11/2021 10:13 0503/2022 AM EDT 11:16 AM EDT Comment: Symptoms->Surveillance Resulting Agency Comment Spec In Lab Iker Cuevas MD MICROBIOLOGY - GENERAL ORDER [place] Performing Organization Address City/State/ZIP Code Phon e Number [address] POCT Glucose (12/11/2021 7:34 AM EDT) athologist Signature POC Glucose 198 65 - 199 [facility] mg/dL [facility] Comment: Supplemental ranges: <140 mg/dL before meals <180 mg/dL all other times of the day Specimen Anatomical Collection Method Collection Time Receive d Time (Source) Location / / Volume Laterality Blood 12/11/2021 7:34 AM 7:34 EDT AM EDT Iker Cuevas MD POINT OF CARE TEST ORDERABLE S Performing Organization Address City/[facility]/ZIP [place] [address] [address] (ABNORMAL) POCT Glucose (12/11/2021 5:07 AM EDT) P athologist Signature POC Glucose 208 (H) 65 - 199 [facility] mg/dL [facility] LABORATORY Comment: Supplemental ranges: <140 mg/dL before meals <180 mg/dL all other times of the day Specimen Anatomical Collection Method Collection Time Receive d Time (Source) Location / / Volume Laterality Blood 12/11/2021 5:07 AM 5:07 EDT AM EDT Iker Cuevas MD POINT OF CARE TEST ORDERABLE S Performing Organization Address City/State/ZIP [place] [address] (ABNORMAL) Differential, Automated (12/11/2021 4:28 AM EDT) Patholo gist Method Time Signature Neutrophils % 79.6 % [facility] LABORATORY Neutr Abs (ANC) 7.01 (H) 1.70 - [facility] 6.10 [facility] x10(3)/[facility] [place] LABORATORY Lymphocytes % 9.1 % [facility] LABORATORY Lymphocytes Abs 0.8 (L) 0.9 - 3.2 [facility] x10(3)/[facility] LABORATORY Monocytes % 9.2 % [facility] LABORATORY Monocyte Abs 0.8 0.3 - 0.9 [facility] x10(3)/[facility] LABORATORY Eosinophils % 1.3 % [facility] LABORATORY Eosinophils Abs 0.1 0.0 - 0.4 [facility] x10(3)/[facility] LABORATORY Basophils % 0.5 % [facility] LABORATORY Basophils Abs 0.0 0.0 - 0.1 [facility] x10(3)/[facility] LABORATORY Immature Gran % 0.30 % [...] 0.03 0.00 - 0.04 x10(3)/mcL [facility] LABORATORY Specimen Anatomical Collection Method Collection Time Receive d Time (Source) Location / / Volume Laterality Blood 12/11/2021 4:28 AM 2 4:37 EDT AM EDT Resulting Agency Comment Spec In Lab Bijan Sun MD HEMATOLOGY ORDERABLES Performing Organization Address City/State/ZIP [place] [address] (ABNORMAL) Hemogram (12/11/2021 4:28 AM EDT) Analysis Performed At Patho logist Time Signature WBC 8.8 4.0 - 9.5 [facility] x10(3)/[facility] LABORATORY RBC 4.15 (L) 4.58 [facility] 5.54 [facility] x10(6)/[facility] LABORATORY Hemoglobin 11.9 (L) 13.7 - [facility] 16.5 g/dL [facility] LABORATORY Hematocrit 36.9 (L) 40.5 - [facility] 48.5 % [facility] LABORATORY MCV 88.9 82.9 - [facility] 93.1 [facility] LABORATORY MCH 28.7 27.5 - [facility] 32.1 pg [facility] LAB[facility]ATORY MCHC 32.2 32.0 - [facility] 35.7 g/dL [facility] LABORATORY Platelets 211 145 - 357 [facility] x10(3)/[facility] LABORATORY RDWSD 48.3 (H) 36.0 - [facility] 45.0 [facility] LABORATORY RDWCV 14.8 (H) 11.4 - [facility] 13.8 % [facility] LABORATORY MPV 9.6 7.6 - 12.9 [facility] LABORATORY nRBC % Auto 0.0 % [facility] LABORATORY nRBC Abs Auto 0.000 0.000 - [facility] RYAN 0.000 [facility] x10(3)/[facility] LABORATORY Specimen Anatomical Collection Method Collection Time Receive d Time (Source) Location / / Volume Laterality Blood 12/11/2021 4:28 AM 2 4:37 EDT AM EDT Resulting Agency Comment Spec In Lab Bijan Sun MD HEMATOLOGY ORDERABLES Performing Organization Address City/State/ZIP [place] [address] (ABNORMAL) Prothrombin Time (12/11/2021 4:28 AM EDT) athologist Signature PT 17.7 (H) 9.4 - 12.5 [facility] LABORATORY INR 1.6 [facility] LABORATORY [...] Address City/State/ZIP [place] [address] (ABNORMAL) BMP w/fasting Glucose (12/11/2021 4:28 AM EDT) athologist Signature Glucose 207 (H) 65 - 99 [facility] Fasting mg/dL [facility] LABORATORY Comment: ?Fasting* Glucose Interpretive [...] of Diabetes Mellitus, Position Statement from the [place] [employer]. ??Diabete s Care, Volume 33, Supplement 1, Jul 2009 BUN 49 (H) 10 - 20 mg/dL [facility] LABORATORY Creatinine 1.43 0.80 - 1.50 mg/dL [facility] LABORATORY Sodium 142 135 - 145 mmol/L [facility] LABORATORY Potassium 4.0 3.5 - 5.0 mmol/L [facility] [...] mg/dL [facility] LABORATORY Estimated GFR 48 (L) >=60 [...] Address City/State/ZIP [place] [address] Magnesium (12/11/2021 4:28 AM EDT) athologist Signature Magnesium 1.04 0.69 - 1.07 [facility] mmol/L [facility] LABORATORY Specimen Anatomical Collection Method Collection Time Receive d Time (Source) Location / / Volume Laterality Blood 12/11/2021 4:28 AM 2 4:37 EDT AM EDT Resulting Agency Comment Spec In Lab Iker Cuevas MD CHEMISTRY ORDERABLES Performing Organization Address City/State/ZIP Code Phon e Number [address] POCT Glucose (12/11/2021 3:58 AM EDT) athologist Signature POC Glucose 189 65 - 199 [facility] mg/dL [facility] LAB[facility]ORY Comment: Supplemental ranges: <140 mg/dL before meals <180 mg/dL all other times of the day Specimen Anatomical Collection Method Collection Time Receive d Time (Source) Location / / Volume Laterality Blood 12/11/2021 3:58 AM 2 3:58 EDT AM EDT Iker Cuevas MD POINT OF CARE TEST ORDERABLE S Performing Organization Address City/State/ZIP [place] [address] (ABNORMAL) POCT Glucose (12/10/2021 11:45 PM EDT) athologist Signature POC Glucose 205 (H) 65 - 199 [facility] mg/dL [facility] LAB[facility]ORY Comment: Supplemental ranges: <140 mg/dL before meals <180 mg/dL all other times of the day Specimen Anatomical Collection Method Collection Time Receive d Time (Source) Location / / Volume Laterality Blood 12/10/2021 11:45 12/10/2021 PM EDT 11:45 PM EDT Iker Cuevas MD POINT OF CARE TEST ORDERABLE S Performing Organization Address City/State/ZIP [place] [address] (ABNORMAL) POCT Glucose (12/10/2021 7:54 PM EDT) athologist Signature POC Glucose 225 (H) 65 - 199 [facility] mg/dL [facility] LABORATORY Comment: Supplemental ranges: <140 mg/dL before meals <180 mg/dL all other times of the day Specimen Anatomical Collection Method Collection Time Receive d Time (Source) Location / / Volume Laterality Blood 12/10/2021 7:54 PM 2 7:54 EDT PM EDT Iker Cuevas MD POINT OF CARE TEST ORDERABLE S Performing Organization Address City/[facility]/ZIP [facility] Phon e Number [address] Potassium (12/10/2021 7:46 PM EDT) athologist Signature Potassium 4.2 3.5 - 5.0 [facility] mmol/L [facility] LABORATORY Comment: Please note: ??Patients [...] CHEMISTRY ORDERABLES Performing Organization Address City/[facility] [place] [address] (ABNORMAL) Basic Metabolic Panel (non-fasting) (12/10/2021 6:12 PM EDT) athologist Signature Glucose Lvl 246 (H) 65 - 199 [facility] mg/dL [facility] LABORATORY Comment: Diabetes: >=200 mg/dL plus symp toms BUN 50 (H) 10 - 20 mg/dL [facility] LABORATORY Creatinine 1.39 0.80 - 1.50 mg/dL [facility] LABORATORY Sodium 138 135 - 145 mmol/L [facility] LABORATORY Potassium Not Perf 3.5 - [...] Gap 16 (H) 5 - 15 mmol/L [facility] LABORATORY Calcium 8.3 (L) 8.5 - 10.5 mg/dL [facility] LABORATORY Estimated GFR 49 (L) >=60 [...] Address City/State/ZIP [place] [address] POCT Glucose (12/10/2021 4:59 PM EDT) athologist Signature POC Glucose 158 65 - 199 [facility] mg/dL [facility] LABORATORY Comment: Supplemental ranges: <140 mg/dL before meals <180 mg/dL all other times of the day Specimen Anatomical Collection Method Collection Time Receive d Time (Source) Location / / Volume Laterality Blood 12/10/2021 4:59 PM 4:59 EDT PM EDT Iker Cuevas MD POINT OF CARE TEST ORDERABLE S Performing Organization Address City/State/ZIP [place] [address] (ABNORMAL) POCT Glucose (12/10/2021 12:43 PM EDT) P athologist Signature POC Glucose 241 (H) 65 - 199 [facility] mg/dL [facility] LABORATORY Comment: Supplemental ranges: <140 mg/dL before meals <180 mg/dL all other times of the day Specimen Anatomical Collection Method Collection Time Receive d Time (Source) Location / / Volume Laterality Blood 12/10/2021 12:43 12/10/2021 PM EDT 12:43 PM EDT Iker Cuevas MD POINT OF CARE TEST ORDERABLE S Performing Organization Address City/[facility]/ZIP [place] [address] EKG 12 Lead (12/10/2021 11:17 AM EDT) Component Value Ref Range Test Analysis Performed Pathologis t Method Time At Signature Ventricular rate 62 BPM MUSE SYSTEM Atrial Rate 62 BPM MUSE SYSTEM P-R Interval 142 ms MUSE SYSTEM QRS Duration 100 ms MUSE SYSTEM Q-T Interval 434 ms MUSE SYSTEM QTC Calculated 440 ms MUSE SYSTEM (Bezet) Calculated P [place] 34 degrees MUSE SYSTEM Calculated R [place] -39 degrees MUSE SYSTEM Calculated T [place] 92 degrees MUSE SYSTEM INTERPRETATION Normal sinus [...] SYSTEM - 12/10/2021 12:04 PM E DT ?[facility] ? Cardiac Cathete rization/Intervention Report ? Patient Name: Don Fatima. ? Procedure Date: 12/10/2021 ? A #: [id number] ? Primary Physician: Vitaliy Nobles ? Case #: [id number] ? File Name: [id number] ? Catheterization Order Number: [id number] ? [facility] ? Final Report [place], [place] ? Patient Name: ? Don E. Stewa rt ? ID#: ?[id number] ? : ?1945 ? Procedure Date: ? December 10, 2021 ? Case #: ? [id number] ? Room: ? 1 ? Case Physician: [...] as ASA Class III. e [facility] clinical frailty scale is 5: [...] procedure was Urgent. 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 ??Imaging was [...] ?3.75 guiding catheter and a 3.5 Fr [facility] 20 Mhz using Manual ?pullback. ??Imaging was [...] using validated risk predictors ?(e.g. CHADS2-VASC, HAS-BLED, CT ECISE DAPT, DAPT Score) ?- ??Keep anticoagulant [...] Procedure Note Vitaliy Nobles MD - 01/14/2022 [facility] Cardiac Catheterization/Intervention Re port Patient Name: Don Fatima Procedure Date: 12/10/2021 A #: [id number] Primary Physician: Vitaliy Nobles Case #: [id number] File Name: [id number] Catheterization Order Number: [id number] [facility] Final Report [place], [place] Patient Name: Don Fatima ID#: [...] e was Urgent. 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 Imaging was [...] and a 3.5 Fr [facility] [place] 20 Mhz using Manual pullback. Imaging was [...] require modification of this regimen. Consult [place] [facility] Interventional Cardiology [...] POC Glucose 262 (H) 65 - 199 [facility] mg/dL [facility] LABORATORY Comment: Supplemental ranges: <140 mg/dL before meals <180 mg/dL all other times of the day Specimen Anatomical Collection Method Collection Time Receive d Time (Source) Location / / Volume Laterality Blood 12/10/2021 10:30 12/10/2021 AM EDT 10:30 AM EDT Iker Cuevas MD POINT OF CARE TEST ORDERABLE S Performing Organization Address City/State/ZIP [place] [address] (ABNORMAL) POCT Glucose (12/10/2021 9:48 AM EDT) athologist Signature POC Glucose 279 (H) 65 - 199 [facility] mg/dL [facility] Comment: Supplemental ranges: <140 mg/dL before meals <180 mg/dL all other times of the day Specimen Anatomical Collection Method Collection Time Receive d Time (Source) Location / / Volume Laterality Blood 12/10/2021 9:48 AM 2 9:48 EDT AM EDT Iker Cuevas MD POINT OF CARE TEST ORDERABLE S Performing Organization Address City/State/ZIP Code Phon e Number [address] (ABNORMAL) POCT Glucose (12/10/2021 9:07 AM EDT) athologist Signature POC Glucose 268 (H) 65 - 199 [facility] mg/dL [facility] LABOR[facility]ORY Comment: Supplemental ranges: <140 mg/dL before meals <180 mg/dL all other times of the day Specimen Anatomical Collection Method Collection Time Receive d Time (Source) Location / / Volume Laterality Blood 12/10/2021 9:07 AM 2 9:07 EDT AM EDT Iker Cuevas MD POINT OF CARE TEST ORDERABLE S Performing Organization Address City/State/ZIP [place] [address] (ABNORMAL) Point of Care Blood Gas Historical (12/10/2021 9:04 AM EDT) [facility] Method Time Signature POC pH 7.40 7.35 - [facility] 7.45 [facility] LABORATORY POC PCO2 40 35 - 45 [facility] LABORATORY POC PO2 63 (L) 85 - 104 [facility] LABORATORY POC Base Excess 0.0 -3.0 - 3.0 [facility] mmol/L [facility] LABORATORY POC HCO3 24.8 20.0 - [facility] 26.0 [facility] mmol/[facility] LABORATORY POC Sodium 143 135 - 145 [facility] mmol/L [facility] LABORATORY POC Potassium 3.7 3.5 - 5.0 [facility] mmol/L [facility] LABORATORY POC Ionized Ca 1.07 (L) 1.15 - [facility] 1.33 [facility] mmol/[facility] LABORATORY POC Hematocrit 30.0 (L) 40.0 - [facility] 51.0 % [facility] LABORATORY POC Calc Hgb 10.2 (L) 13.7 - [facility] 17.5 g/dL [facility] LABORATORY Comment: The calculation of hemoglobin f rom hematocrit assumes a normal MCHC. POC Bgas Loc CC LAB [facility] LABORATORY Specimen Anatomical Collection Method Collection Time Receive d Time (Source) Location / / Volume Laterality Blood 12/10/2021 9:04 AM 2 EDT 12:00 PM EDT Ifeanyi Truong MD CHEMISTRY ORDERABLES Performing Organization Address City/[facility]/ZIP [place] [address] (ABNORMAL) POCT Glucose (12/10/2021 7:19 AM EDT) athologist Signature POC Glucose 274 (H) 65 - 199 [facility] mg/dL [facility] LABORATORY Comment: Supplemental ranges: <140 mg/dL before meals <180 mg/dL all other times of the day Specimen Anatomical Collection Method Collection Time Receive d Time (Source) Location / / Volume Laterality Blood 12/10/2021 7:19 AM 2 7:19 EDT AM EDT Iker Cuevas MD POINT OF CARE TEST ORDERABLE S Performing Organization Address City/[facility]/ZIP [place] [address] Heparin (unfractionated) Level (12/10/2021 4:25 AM EDT) athologist Signature Heparin UFH 0.69 IU/mL [facility] LABORATORY Comment: Heparin (anti-Xa) levels [...] Address City/State/ZIP [place] [address] (ABNORMAL) Differential, Automated (12/10/2021 4:25 AM EDT) [facility] Method Time Signature Neutrophils % 79.8 % [facility] LABORATORY Neutr Abs (ANC) 7.47 (H) 1.70 - [facility] 6.10 [facility] x10(3)/[facility] [place] LABORATORY Lymphocytes % 10.6 % [facility] LABORATORY Lymphocytes Abs 1.0 0.9 - 3.2 [facility] x10(3)/[facility] LABORATORY Monocytes % 8.4 % [facility] LABORATORY Monocyte Abs 0.8 0.3 - 0.9 [facility] x10(3)[facility] LABORATORY Eosinophils % 0.6 % [facility] LABORATORY Eosinophils Abs 0.1 0.0 - 0.4 [facility] x10(3)[facility] LABORATORY Basophils % 0.2 % [facility] LABORATORY Basophils Abs 0.0 0.0 - 0.1 [facility] x10(3)/[facility] LABORATORY Immature Gran % 0.40 % [facility] LABORATORY Comment: Immature granulocytes(IG's)percentage an d absolute count will include metamyelocytes, myelocytes, and promyelo cytes. Blood smears from CBCs yielding IG's will be scanned manually for concsarahy danhlaey. If this scan disagrees with the automated IG or if promyelocytes are not ed, a manual differential will be performed. Melisa Gran Abs 0.04 0.00 - 0.04 x10(3)/[facility] MAR Y [facility] LABORATORY Specimen Anatomical Collection Method Collection Time Receive d Time (Source) Location / / Volume Laterality Blood 12/10/2021 4:25 AM 4:34 EDT AM EDT Resulting Agency Comment Spec In Lab Morgan BROWN HEMATOLOGY ORDERABLES Performing Organization Address City/State/ZIP [place] [address] (ABNORMAL) Hemogram (12/10/2021 4:25 AM EDT) Analysis Performed At Patho logist Time Signature WBC 9.4 4.0 - 9.5 [facility] x10(3)/[facility] LABORATORY RBC 3.81 (L) 4.58 - [facility] 5.54 [facility] x10(6)/[facility] LABORATORY Hemoglobin 11.1 (L) 13.7 - [facility] 16.[facility] g/dL [facility] LABORATORY Hematocrit 34.0 (L) 40.5 - [facility] 48.5 % [facility] LABORATORY MCV 89.2 82.9 - [facility] 93.1 [facility] LABORATORY MCH 29.1 27.5 - [facility] 32.1 pg [facility] LABORATORY MCHC 32.6 32.0 - [facility] 35.7 g/dL [facility] LABORATORY Platelets 183 145 - 357 [facility] x10(3)/[facility] LABORATORY RDWSD 49.9 (H) 36.0 - [facility] RYAN 45.0 [facility] LABORATORY RDWCV 15.2 (H) 11.4 - [facility] 13.8 % [facility] LABORATORY MPV 9.8 7.6 - 12.9 [facility] LABORATORY nRBC % Auto 0.0 % [facility] LABORATORY nRBC Abs Auto 0.000 0.000 - [facility] RYAN 0.000 [facility] x10(3)/[facility] LABORATORY Specimen Anatomical Collection Method Collection Time Receive d Time (Source) Location / / Volume Laterality Blood 12/10/2021 4:25 AM 2 4:34 EDT AM EDT Resulting Agency Comment Spec In Lab Morgan BROWN HEMATOLOGY ORDERABLES Performing Organization Address City/State/ZIP [place] [address] (ABNORMAL) Prothrombin Time (12/10/2021 4:25 AM EDT) P athologist Signature PT 20.0 (H) 9.4 - 12.5 [facility] LABORATORY INR 1.7 [facility] [...] Organization Address City/State/ZIP [place] [address] (ABNORMAL) BMP w/fasting Glucose (12/10/2021 4:25 AM EDT) P athologist Signature Glucose 210 (H) 65 - 99 [facility] Fasting mg/dL [facility] LABORATORY Comment: ?Fasting* Glucose Interpretive [...] of Diabetes Mellitus, Position Statement from the [place] [employer]. ??Diabete s Care, Volume 33, Supplement 1, Jul 2009 BUN 54 (H) 10 - 20 mg/dL [facility] LABORATORY Creatinine 1.52 (H) 0.80 - 1.50 mg/dL [facility] LABORATORY Sodium 140 135 - 145 mmol/L [facility] LABORATORY Potassium 3.9 3.5 - 5.0 mmol/L [facility] [...] 15 mmol/L [facility] LABORATORY Calcium 8.0 (L) 8.5 - 10.5 mg/dL [facility] LABORATORY Estimated GFR 44 (L) >=60 [...] Organization Address City/State/ZIP [place] [address] Magnesium (12/10/2021 4:25 AM EDT) athologist Signature Magnesium 0.95 0.69 - 1.07 [facility]/L [facility] LABORATORY Specimen Anatomical Collection Method Collection Time Receive d Time (Source) Location / / Volume Laterality Blood 12/10/2021 4:25 AM 2 4:34 EDT AM EDT Resulting Agency Comment Spec In Lab Iker Cuevas MD CHEMISTRY ORDERABLES Performing Organization Address City/[facility]/ZIP Code Phon e Number [address] POCT Glucose (12/10/2021 1:58 AM EDT) athologist Signature POC Glucose 164 65 - 199 [facility] RYAN mg/dL [facility] LABORATORY Comment: Supplemental ranges: <140 mg/dL before meals <180 mg/dL all other times of the day Specimen Anatomical Collection Method Collection Time Receive d Time (Source) Location / / Volume Laterality Blood 12/10/2021 1:58 AM 2 1:58 EDT AM EDT Iker Cuevas MD POINT OF CARE TEST ORDERABLE S Performing Organization Address City/[facility]/ZIP [place] [address] (ABNORMAL) POCT Glucose (12/09/2021 9:02 PM EDT) athologist Signature POC Glucose 313 (H) 65 - 199 [facility] mg/dL [facility] LABORATORY Comment: Supplemental ranges: <140 mg/dL before meals <180 mg/dL all other times of the day Specimen Anatomical Collection Method Collection Time Receive d Time (Source) Location / / Volume Laterality Blood 12/09/2021 9:02 PM 2 9:02 EDT PM EDT Iker Cuevas MD POINT OF CARE TEST ORDERABLE S Performing Organization Address City/State/ZIP [place] [address] Heparin (unfractionated) Level (12/09/2021 7:30 PM EDT) athologist Signature Heparin UFH 0.48 IU/mL [facility] LABORATORY Comment: Heparin (anti-Xa) levels [...] Organization Address City/State/ZIP [place] [address] (ABNORMAL) Basic Metabolic Panel (non-fasting) (12/09/2021 7:30 PM EDT) athologist Signature Glucose Lvl 372 (H) 65 - 199 [facility] mg/dL [facility] LABORATORY Comment: Diabetes: >=200 mg/dL plus symp toms BUN 56 (H) 10 - 20 mg/dL [facility] LABORATORY Creatinine 1.75 (H) 0.80 - 1.50 mg/dL [facility] LABORATORY Sodium 138 135 - 145 mmol/L [facility] LABORATORY Potassium 4.2 3.5 - 5.0 mmol/L [facility] [...] 8.1 (L) 8.5 - 10.5 mg/dL [facility] LABORATORY Estimated GFR 37 (L) >=60 [...] Address City/State/ZIP [place] [address] (ABNORMAL) POCT Glucose (12/09/2021 6:34 PM EDT) P athologist Signature POC Glucose 408 (H) 65 - 199 [facility] mg/dL [facility] LABORATORY Comment: Supplemental ranges: <140 mg/dL before meals <180 mg/dL all other times of the day Specimen Anatomical Collection Method Collection Time Receive d Time (Source) Location / / Volume Laterality Blood 12/09/2021 6:34 PM 2 6:34 EDT PM EDT Iker Cuevas MD POINT OF CARE TEST ORDERABLE S Performing Organization Address City/[facility]/ZIP [place] [address] [address] (ABNORMAL) POCT Glucose (12/09/2021 6:32 PM EDT) athologist Signature POC Glucose 356 (H) 65 - 199 [facility] RYAN mg/dL [facility] LABORATORY Comment: Supplemental ranges: <140 mg/dL before meals <180 mg/dL all other times of the day Specimen Anatomical Collection Method Collection Time Receive d Time (Source) Location / / Volume Laterality Blood 12/09/2021 6:32 PM 2 6:32 EDT PM EDT Iker Cuevas MD POINT OF CARE TEST ORDERABLE S Performing Organization Address City/[facility]/ZIP [place] [address] (ABNORMAL) POCT Glucose (12/09/2021 4:19 PM EDT) athologist Signature POC Glucose 347 (H) 65 - 199 [facility] RYAN mg/dL [facility] Comment: Supplemental ranges: <140 mg/dL before meals <180 mg/dL all other times of the day Specimen Anatomical Collection Method Collection Time Receive d Time (Source) Location / / Volume Laterality Blood 12/09/2021 4:19 PM 2 4:19 EDT PM EDT Iker Cuevas MD POINT OF CARE TEST ORDERABLE S Performing Organization Address City/[facility]/ZIP [place] [address] Heparin (unfractionated) Level (12/09/2021 1:29 PM EDT) athologist Signature Heparin UFH 0.42 IU/mL [facility] LABORATORY Comment: Heparin (anti-Xa) levels [...] HEMATOLOGY ORDERABLES Performing Organization Address City/[facility]/ZIP Code Phon e Number [address] (ABNORMAL) POCT Glucose (12/09/2021 12:02 PM EDT) P athologist Signature POC Glucose 235 (H) 65 - 199 [facility] Comment: Supplemental ranges: <140 mg/dL before meals <180 mg/dL all other times of the day Specimen Anatomical Collection Method Collection Time Receive d Time (Source) Location / / Volume Laterality Blood 12/09/2021 12:02 12/09/2021 PM EDT 12:02 PM EDT Iker Cuevas MD POINT OF CARE TEST ORDERABLE S Performing Organization Address City/[facility]/ZIP [place] [address] (ABNORMAL) POCT Glucose (12/09/2021 9:44 AM EDT) P athologist Signature POC Glucose 214 (H) 65 - 199 [facility] mg/dL [facility] Comment: Supplemental ranges: <140 mg/dL before meals <180 mg/dL all other times of the day Specimen Anatomical Collection Method Collection Time Receive d Time (Source) Location / / Volume Laterality Blood 12/09/2021 9:44 AM 2 9:44 EDT AM EDT Iker Cuevas MD POINT OF CARE TEST ORDERABLE S Performing Organization Address City/State/ZIP [place] [address] EKG 12 Lead (12/09/2021 7:57 AM EDT) Component Value Ref Range Test Analysis Performed Pathologis t Method Time At Signature Ventricular rate 101 BPM MUSE SYSTEM Atrial Rate 101 BPM MUSE SYSTEM P-R Interval 150 ms MUSE SYSTEM QRS Duration 112 ms MUSE SYSTEM Q-T Interval 364 ms MUSE SYSTEM QTC Calculated 471 ms MUSE SYSTEM (Bezet) Calculated P [place] 59 degrees MUSE SYSTEM Calculated R [place] -42 degrees MUSE SYSTEM Calculated T [place] 102 degrees MUSE SYSTEM INTERPRETATION Sinus tachycardia Occasional Premature ventricular com plexes MUSE SYSTEM Left axis deviation 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) Abnormal ECG When compared with ECG of 08-DEC-2021 16:40, Premature ventricular complexes are now Present Confirmed by MD Jim, Yoon ([id number]) on 12/10/2021 4:55:06 PM Specimen Anatomical Collection Method Collection Time Receive d Time (Source) Location / / Volume Laterality 12/09/2021 7:57 AM 2 4:55 EDT PM EDT Iker Cuevas MD ECG ORDERABLES Performing Organization Address City/State/ZIP Code Phon e Number MUSE SYSTEM (ABNORMAL) POCT Glucose (12/09/2021 7:28 AM EDT) P athologist Signature POC Glucose 263 (H) 65 - 199 [facility] mg/dL [facility] Comment: Supplemental ranges: <140 mg/dL before meals <180 mg/dL all other times of the day Specimen Anatomical Collection Method Collection Time Receive d Time (Source) Location / / Volume Laterality Blood 12/09/2021 7:28 AM 2 7:28 EDT AM EDT Iker Cuevas MD POINT OF CARE TEST ORDERABLE S Performing Organization Address City/State/ZIP [place] [address] (ABNORMAL) Hemoglobin A1c (12/09/2021 6:18 AM EDT) Analysis Performed At Patho logist Time Signature Hemoglobin A1C 7.4 (H) 4.3 - 5.6 [facility] LABORATORY [...] Avg Gluc See note mg/dL [facility] LABORATORY Comment: Estimated Average Glucose not [...] with hemoglobinopathies. Additional resources are available on [facility] ADA website. Macario HAMMOND, Ruthann J, Deysi R, et al. ??Tr anslating the A1C assay into estimated average glucose values. ??Diabetes Care 2008:31(8):6898-0678. Specimen Anatomical Collection Method Collection Time Receive d Time (Source) Location / / Volume Laterality Blood Venous Draw / 12/09/2021 6:18 AM 12/10/19 22 Unknown EDT 12:24 PM EDT Resulting Agency Comment Spec In Lab Migdalia BROWN CHEMISTRY ORDERABLES Performing Organization Address City/State/[facility] [place] [address] (ABNORMAL) Prothrombin Time (12/09/2021 6:18 AM EDT) athologist Signature PT 26.6 (H) 9.4 - 12.5 [facility] LABORATORY INR 2.3 [facility] [...] Address City/State/ZIP [place] [address] Heparin (unfractionated) Level (12/09/2021 6:18 AM EDT) athologist Signature Heparin UFH 0.24 IU/mL [facility] LABORATORY Comment: Heparin (anti-Xa) levels [...] Address City/State/ZIP [place] [address] (ABNORMAL) Differential, Automated (12/09/2021 6:18 AM EDT) [facility] Method Time Signature Neutrophils % 91.5 % [facility] LABORATORY Neutr Abs (ANC) 15.78 (H) 1.70 - [facility] 6.10 [facility] x10(3)/[facility] LABORATORY Lymphocytes % 2.9 % [facility] LABORATORY Lymphocytes Abs 0.5 (L) 0.9 - 3.2 [facility] x10(3)/[facility] LABORATORY Monocytes % 4.9 % [facility] LABORATORY Monocyte Abs 0.8 0.3 - 0.9 [facility] x10(3)/[facility] LABORATORY Eosinophils % 0.0 % [facility] LABORATORY Eosinophils Abs 0.0 0.0 - 0.4 [facility] x10(3)/[facility] LABORATORY Basophils % 0.2 % [facility] LABORATORY Basophils Abs 0.0 0.0 - 0.1 [facility] x10(3)/[facility] LABORATORY Immature Gran % 0.50 % [...] Morgan BROWN HEMATOLOGY ORDERABLES Performing Organization Address City/[facility]/ZIP [place] [address] (ABNORMAL) Hemogram (12/09/2021 6:18 AM EDT) Analysis Performed At Patho logist Time Signature WBC 17.2 (H) 4.0 - 9.5 [facility] x[facility](3[facility] LABORATORY RBC 4.32 (L) 4.58 - [facility] RYAN 5.54 [facility] x10(6)/[facility] LABORATORY Hemoglobin 12.6 (L) 13.7 - [facility] 16.5 g/dL [facility] LAB[facility]ORY Hematocrit 38.9 (L) 40.5 - [facility] 48.5 % [facility] MCV 90.0 82.9 - [facility] 93.1 [facility] LABORATORY MCH 29.2 27.5 - [facility] 32.1 pg [facility] LAB[facility]ATORY MCHC 32.4 32.0 - [facility] 35.7 g/dL [facility] Platelets 193 145 - 357 [facility] x10(3)/[facility] LABORATORY RDWSD 50.4 (H) 36.0 - [place] RYAN 45.0 [facility] LABORATORY RDWCV 15.2 (H) 11.4 - [facility] 13.8 % [facility] LABORATORY MPV 9.5 7.6 - 12.9 [facility] nRBC % Auto 0.0 % [facility] LABORATORY nRBC Abs Auto 0.000 0.000 - [facility] 0.000 [facility] x10(3)/[facility] LABORATORY Specimen Anatomical Collection Method Collection Time Receive d Time (Source) Location / / Volume Laterality Blood 12/09/2021 6:18 AM 6:33 EDT AM EDT Resulting Agency Comment Spec In Lab Morgan BROWN HEMATOLOGY ORDERABLES Performing Organization Address City/State/ZIP [place] [address] Lipid Panel (Reflex Direct LDL) (12/09/2021 6:18 AM EDT) athologist Signature Chol, Total 105 mg/dL [facility] LABORATORY Comment: Lower Risk: <200 mg/dL Average Risk: 200-239 mg/dL Higher Risk: >hv=244 mg/dL Triglycerides 133 mg/dL [facility] LABORATORY Comment: Average Risk/Lower Risk: <150 mg/dL Borderline High Risk: 150-199 mg/dL High Risk: 200-499 mg/dL Very High Risk: >zt=970 mg/dL HDL 42 mg/dL [facility] LABORATORY Comment: Males: ?? Higher Risk: <40 mg/dL Females: ?? Higher Risk: <50 mg/dL LDL Cholesterol 36 mg/dL [facility] LABORATORY Comment: Lowest Risk: <100 mg/dL Lower Risk: 100-129 mg/dL Borderline High Risk: 130-159 mg/dL High Risk: 160-189 mg/dL Very High Risk: >br=954 mg/dL Chol/HDL Ratio 2.5 ratio [facility] LABORATORY Lipid Interpretation See Note [facility] LABORATORY Comment: Lipid management should be guided by a p atient? s ASCVD risk, goals and preferences. ACC/AHA Guidelines recommend high intens ity statin if clinical ASCVD or LDL greater than or equal to 190 mg/dL. http://Gnzo.com/SJG-RQS-Lrzsboecc Adults aged 40-75 with LDL 70-189 mg/dL should have their 10 year ASCVD risk estimated with the ACC/AHA ASCVD risk es timator http://tools.acc.org/NVSCY-Rfvl-Gwpkzteh r/ Statin should be discussed if risk [...] Cuevas MD CHEMISTRY ORDERABLES Performing Organization Address [facility] [place] [address] TSH (12/09/2021 6:18 AM EDT) P athologist Signature TSH 1.60 0.27 - 4.20 [facility] mcIU/mL [facility] LABORATORY Comment: Reference Interval (mcIU/mL): Females: ??First Trimester: 0.23-3.88 ??Second Trimester: 0.22-3.90 ??Third Trimester: 0.44-4.66 Specimen Anatomical Collection Method Collection Time Receive d Time (Source) Location / / Volume Laterality Blood 12/09/2021 6:18 AM 2 6:33 EDT AM EDT Resulting Agency Comment Spec In Lab Iker Cuevas MD CHEMISTRY ORDERABLES Performing Organization Address [facility] [place] [address] Hepatic Function Panel (12/09/2021 6:18 AM EDT) P athologist Signature Total Protein 7.3 6.1 - 8.0 [facility] g/dL [facility]OR[facility] Albumin 4.2 3.2 - 5.2 [facility] g/dL [facility] AST 25 0 - 39 [facility] unit/L [facility] ALT 15 0 - 55 [facility] unit/L [facility] Alk Phos 75 40 - 130 [facility] unit/L [facility] Total 1.1 0.2 - 1.3 [facility] Bilirubin mg/dL [facility] Bili, Direct 0.2 0.0 - 0.3 [facility] mg/dL [facility] LABOR[facility]ORY Specimen Anatomical Collection Method Collection Time Receive d Time (Source) Location / / Volume Laterality Blood 12/09/2021 6:18 AM 2 6:33 EDT AM EDT Resulting Agency Comment Spec In Lab Iker Cuevas MD CHEMISTRY ORDERABLES Performing Organization Address City/State/ZIP [place] [address] (ABNORMAL) BMP w/fasting Glucose (12/09/2021 6:18 AM EDT) P athologist Signature Glucose 235 (H) 65 - 99 [facility] Fasting mg/dL [facility] Comment: ?Fasting* Glucose Interpretive [...] of Diabetes Mellitus, Position Statement from the [place] [employer]. ??Diabete s Care, Volume 33, Supplement 1, Jul 2009 BUN 49 (H) 10 - 20 mg/dL [facility] LABORATORY Creatinine 1.33 0.80 - 1.50 mg/dL [facility] LABORATORY Sodium 139 135 - 145 mmol/L [facility] LABORATORY Potassium 4.2 3.5 - 5.0 mmol/L [facility] [...] 15 mmol/L [facility] LABORATORY Calcium 8.8 8.5 - 10.5 mg/dL [facility] LABORATORY Estimated GFR 52 (L) >=60 [...] CHEMISTRY ORDERABLES Performing Organization Address City/[facility]/ZIP Code Phon e Number [address] Magnesium (12/09/2021 6:18 AM EDT) athologist Signature Magnesium 0.81 0.69 - 1.07 [facility] mmol/L [facility] LABORATORY Specimen Anatomical Collection Method Collection Time Receive d Time (Source) Location / / Volume Laterality Blood 12/09/2021 6:18 AM 2 6:33 EDT AM EDT Resulting Agency Comment Spec In Lab Iker Cuevas MD CHEMISTRY ORDERABLES Performing Organization Address City/[facility] [place] [address] (ABNORMAL) Troponin (12/09/2021 6:18 AM EDT) athologist Signature Troponin-T 1.13 (H) 0.00 - [facility] 0.00 ng/mL [facility] LABORATORY Comment: The 99th percentile [...] additional sample may be indicated. Reference: Third Hanna Definition of Myocardial Infarction. Journal of the [place] [employer] 2012;60:1581-98 Specimen Anatomical Collection Method Collection Time Receive d Time (Source) Location / / Volume Laterality Blood 12/09/2021 6:18 AM 6:33 EDT AM EDT Resulting Agency Comment Spec In Lab Iker Cuevas MD CHEMISTRY ORDERABLES Performing Organization Address City/State/ZIP Code Phon e Number [place] [id number] XR Chest One View [...] who have questions please contact the health day care worker that requested your imaging first. ? Electronically signed by: Yoselin White, [facility] ([phone]), at 12/09/2021 5:35 AM Narrative 12/09/2021 5:35 [...] ho have questions please contact the health day care worker that requested your imaging first. Electronically signed by: Yoselin White, [facility] ([phone]), at 12/09/2021 5:35 AM Amber Sanches MD IMG DX ORDERABLES (ABNORMAL) BLOOD GAS 2 ARTERIAL (12/09/2021 5:14 AM EDT) Analysis Performed At Patho logist Time Signature pH Art 7.43 7.35 - [facility] 7.45 [facility] LABORATORY pCO2 Art 36 35 - 45 [facility] LABORATORY pO2 Art 67 (L) 85 - 104 [facility] LABORATORY HCO3 Art 23.4 20.0 - [facility] 26.0 [facility] mmol/L [facility] LABORATORY BE Art -0.9 -3.0 - 3.0 [facility] mmol/L [facility] LABORATORY Hgb Blood Gas 13.2 (L) 13.7 - [facility] 16.5 g/dL [facility] LABORATORY O2HB Art 91.3 (L) 94.0 - [facility] 97.0 % [facility]ORATORY COHB Art 0.4 % [facility] Bld 223 (H) 65 - 199 mg/dL [facility] LABORATORY Comment: Diabetes: >=200 mg/dL plus symp toms. Lactate WB 2.7 (H) 0.5 - 2.2 mmol/L [facility] LABORATORY FIO2 Art 35 % [facility] LABORATORY Flow Art 8.0 LPM [facility] LABORATORY PF Ratio Art 191 [facility] LABORATORY Specimen Anatomical Collection Method Collection Time Receive d Time (Source) Location / / Volume Laterality Blood 12/09/2021 5:14 AM 2 5:14 EDT AM EDT Iker Cuevas MD CHEMISTRY ORDERABLES Performing Organization Address City/State/ZIP Code Phon e Number [address] POCT Glucose (12/09/2021 4:46 AM EDT) athologist Signature POC Glucose 198 65 - 199 [facility] mg/dL [facility]ORY Comment: Supplemental ranges: <140 mg/dL before meals <180 mg/dL all other times of the day Specimen Anatomical Collection Method Collection Time Receive d Time (Source) Location / / Volume Laterality Blood 12/09/2021 4:46 AM 2 4:46 EDT AM EDT Iker Cuevas MD POINT OF CARE TEST ORDERABLE S Performing Organization Address City/State/ZIP [place] [address] (ABNORMAL) POCT Glucose (12/09/2021 3:01 AM EDT) athologist Signature POC Glucose 225 (H) 65 - 199 [facility] mg/dL [facility] Comment: Supplemental ranges: <140 mg/dL before meals <180 mg/dL all other times of the day Specimen Anatomical Collection Method Collection Time Receive d Time (Source) Location / / Volume Laterality Blood 12/09/2021 3:01 AM 2 3:01 EDT AM EDT Iker Cuevas MD POINT OF CARE TEST ORDERABLE S Performing Organization Address City/State/ZIP Code Phon e Number [address] (ABNORMAL) POCT Glucose (12/08/2021 10:55 PM EDT) athologist Signature POC Glucose 327 (H) 65 - 199 [facility] mg/dL [facility]ORY Comment: Supplemental ranges: <140 mg/dL before meals <180 mg/dL all other times of the day Specimen Anatomical Collection Method Collection Time Receive d Time (Source) Location / / Volume Laterality Blood 12/08/2021 10:55 12/08/2021 PM EDT 10:55 PM EDT Iker Cuevas MD POINT OF CARE TEST ORDERABLE S Performing Organization Address City/[facility]/ZIP [place] [address] Heparin (unfractionated) Level (12/08/2021 10:03 PM EDT) athologist Signature Heparin UFH 0.18 IU/mL [facility] LABORATORY Comment: Heparin (anti-Xa) levels [...] HEMATOLOGY ORDERABLES Performing Organization Address City/[facility]/ZIP [place] [address] (ABNORMAL) Troponin (12/08/2021 10:03 PM EDT) athologist Signature Troponin-T 0.92 (H) 0.00 - [facility] 0.00 ng/mL [facility]ORATORY Comment: The 99th percentile [...] additional sample may be indicated. Reference: Third Hanna Definition of Myocardial Infarction. Journal of the [place] [employer] 2012;60:1581-98 Specimen Anatomical Collection Method Collection Time Receive d Time (Source) Location / / Volume Laterality Blood 12/08/2021 10:03 12/08/2021 PM EDT 10:31 PM EDT Resulting Agency Comment Spec In Lab Iker Cuevas MD CHEMISTRY ORDERABLES Performing Organization Address City/State/ZIP [place] [address] (ABNORMAL) POCT Glucose (12/08/2021 8:22 PM EDT) athologist Signature POC Glucose 429 (H) 65 - 199 [facility] mg/dL [facility] Comment: Supplemental ranges: <140 mg/dL before meals <180 mg/dL all other times of the day Specimen Anatomical Collection Method Collection Time Receive d Time (Source) Location / / Volume Laterality Blood 12/08/2021 8:22 PM 8:22 EDT PM EDT Iker Cuevas MD POINT OF CARE TEST ORDERABLE S Performing Organization Address City/State/ZIP [place] [address] (ABNORMAL) POCT Glucose (12/08/2021 7:06 PM EDT) athologist Signature POC Glucose 442 (H) 65 - 199 [facility] mg/dL [facility] Comment: Supplemental ranges: <140 mg/dL before meals <180 mg/dL all other times of the day Specimen Anatomical Collection Method Collection Time Receive d Time (Source) Location / / Volume Laterality Blood 12/08/2021 7:06 PM 2 7:06 EDT PM EDT Iker Cuevas MD POINT OF CARE TEST ORDERABLE S Performing Organization Address City/[facility]/ZIP Code Phon e Number [address] Magnesium (12/08/2021 6:02 PM EDT) athologist Signature Magnesium 0.86 0.69 - 1.07 [facility] mmol/L [facility] LABORATORY Specimen Anatomical Collection Method Collection Time Receive d Time (Source) Location / / Volume Laterality Blood 12/08/2021 6:02 PM 2 6:36 EDT PM EDT Resulting Agency Comment Spec In Lab Iker Cuevas MD CHEMISTRY ORDERABLES Performing Organization Address City/State/ZIP [place] [address] (ABNORMAL) Basic Metabolic Panel (non-fasting) (12/08/2021 6:02 PM EDT) athologist Signature Glucose Lvl 392 (H) 65 - 199 [facility] mg/dL [facility] Comment: Diabetes: >=200 mg/dL plus symp toms BUN 41 (H) 10 - 20 mg/dL [facility] LABORATORY Creatinine 1.44 0.80 - 1.50 mg/dL [facility] LABORATORY Sodium 138 135 - 145 mmol/L [facility] LABORATORY Potassium 4.5 3.5 - 5.0 mmol/L [facility] [...] Gap 16 (H) 5 - 15 mmol/L [facility] LABORATORY Calcium 8.6 8.5 - 10.5 mg/dL [facility] LABORATORY Estimated GFR 47 (L) >=60 [...] Organization Address City/State/ZIP Code Phon e Number [place] [phone] (ABNORMAL) Differential, Automated (12/08/2021 6:02 PM EDT) [facility] gist Method Time Signature Neutrophils % 89.5 % [facility] LABORATORY Neutr Abs (ANC) 13.97 (H) 1.70 - [facility] 6.10 [facility] x10(3)/[facility] L LABORATORY Lymphocytes % 3.7 % [facility] LABORATORY Lymphocytes Abs 0.6 (L) 0.9 - 3.2 [facility] x10(3)/[facility] LABORATORY Monocytes % 6.1 % [facility] LABORATORY Monocyte Abs 1.0 (H) 0.3 - 0.9 [facility] x10(3)/[facility] LABORATORY Eosinophils % 0.0 % [facility] LABORATORY Eosinophils Abs 0.0 0.0 - 0.4 [facility] x10(3)/[facility] LABORATORY Basophils % 0.2 % [facility] LABORATORY Basophils Abs 0.0 0.0 - 0.1 [facility] x10(3)/[facility] LABORATORY Immature Gran % 0.50 % [...] Address City/State/ZIP [place] [address] (ABNORMAL) Hemogram (12/08/2021 6:02 PM EDT) Analysis Performed At Patho logist Time Signature WBC 15.6 (H) 4.0 - 9.5 [facility] x10(3)/[facility] LABORATORY RBC 4.05 (L) 4.58 - [facility] 5.54 [facility] x10(6)/[facility] LABORATORY Hemoglobin 11.8 (L) 13.7 - [facility] 16.5 g/dL [facility] LABORATORY Hematocrit 35.8 (L) 40.5 - [facility] 48.5 % [facility] LABORATORY MCV 88.4 82.9 - [facility] 93.1 fL [facility] LABORAT[facility] MCH 29.1 27.5 - [facility] 32.1 pg [facility] LABORATORY MCHC 33.0 32.0 - [facility] 35.7 g/dL [facility] LABORATORY Platelets 178 145 - 357 [facility] x10(3)/[facility] LABORATORY RDWSD 49.3 (H) 36.0 - [facility] 45.0 [facility] LABORATORY RDWCV 15.1 (H) 11.4 - [facility] 13.8 % [facility] LABORATORY MPV 10.4 7.6 - 12.9 [facility] LABORATORY nRBC % Auto 0.0 % [facility] LABORATORY nRBC Abs Auto 0.000 0.000 - [facility] 0.000 [facility] x10(3)/[facility] LABORATORY Specimen Anatomical Collection Method Collection Time Receive d Time (Source) Location / / Volume Laterality Blood 12/08/2021 6:02 PM 6:36 EDT PM EDT Resulting Agency Comment Spec In Lab Morgan BROWN HEMATOLOGY ORDERABLES Performing Organization Address City/State/ZIP Code Phon e Number [facility] [place] [address] (ABNORMAL) Troponin (12/08/2021 6:02 PM EDT) P athologist Signature Troponin-T 0.89 (H) 0.00 - BARBARA DAVIS 0.00 ng/mL [facility] Comment: The 99th percentile [...] additional sample may be indicated. Reference: Third Hanna Definition of Myocardial Infarction. Journal of the [place] College [employer] 2012;60:1581-98 Specimen Anatomical Collection Method Collection Time Receive d Time (Source) Location / / Volume Laterality Blood 12/08/2021 6:02 PM 6:36 EDT PM EDT Resulting Agency Comment Spec In Lab Iker Cuevas MD CHEMISTRY ORDERABLES Performing Organization Address City/State/ZIP [place] [address] COVID-19 PCR (12/08/2021 5:00 PM EDT) [facility] Method Time Signature SARS-CoV-2 Not Detected Not Detected [facility] RNA PCR [facility] LABORATORY [...] using the Simplexa COVID-19 Direct Assay by Kettojoi marcum as authorized by the FDA issued [...] fact sheets at the following FDA website: https://www.fda.gov/medical-devices/nhepmrzaeje-fghwbhy-1804-kilyw-40-pgazguwog- heg-uduhizfqztbejj-jxilrnl-devices/hkspj-vppocfqdxhv-hxvg SARS-CoV-2 Source [employer] Swab [facility] LABOR[facility]ORY Specimen (Source) Anatomical Collection Method Collection Time Re ceived Time Location / / Volume Laterality Nasopharyngeal Swab 12/08/2021 5:00 12/08 PM EDT 6:03 PM EDT Comment: Symptoms->Surveillance Resulting Agency Comment Spec In Lab Iker Cuevas MD MICROBIOLOGY - GENERAL ORDER [place] Performing Organization Address City/State/ZIP [place] [address] EKG 12 Lead (12/08/2021 4:40 PM EDT) Component Value Ref Range Test Analysis Performed Pathologis t Method Time At Signature Ventricular rate 78 BPM MUSE SYSTEM Atrial Rate 78 BPM MUSE SYSTEM P-R Interval 152 ms MUSE SYSTEM QRS Duration 96 ms MUSE SYSTEM Q-T Interval 396 ms MUSE SYSTEM QTC Calculated 451 ms MUSE SYSTEM (Bezet) Calculated P [place] 44 degrees MUSE SYSTEM Calculated R [place] -31 degrees MUSE SYSTEM Calculated T [place] 124 degrees MUSE SYSTEM INTERPRETATION Normal sinus [...] POC Glucose 400 (H) 65 - 199 [facility] mg/dL [facility] Comment: Supplemental ranges: <140 mg/dL before meals <180 mg/dL all other times of the day Specimen Anatomical Collection Method Collection Time Receive d Time (Source) Location / / Volume Laterality Blood 12/08/2021 4:34 PM 2 4:34 EDT PM EDT Iker Cuevas MD POINT OF CARE TEST ORDERABLE S Performing Organization Address City/State/ZIP [place] [address] documented in this encounter [...] Given 11/23 10:30 AM EDT 300 mcg (FIBERGLASSER) ONCE PRN, Starting on Wed12/10/21 at 1030, [...] vial 42 Units 2041 (Given - Provider: Derirck Galeas RN) 42 Units, Subcutaneous, NIGHTLY, First [...] DO NOT CRUSH OR OPEN, Routine 1230 ([facility] Unhold - Provider: Admin Adt) polyethylene glycoL (Miralax) packet 17 g 0805 (SEP Ho ld - Provider: Admin Adt - Reason: Transfer to a Procedural area)0900 (Not Given - Provider: Emma Garcia RN - Reason: Transfer to a Procedural area)1230 ([facility] Unhold - Provider: Admin [...] Sean ine 0.9) flush 5 mL 0805 ([facility] Hold - Provider: Admin Adt - Reason: Transfer to a Procedural area)0900 (Not Given - Provider: Emma Garcia RN - Reason: Transfer to a Procedural area)1230 ([facility] Unhold - Provider: Admin [...] 12/12/2021 acetaminophen (Tylenol) tablet 650 mg 0805 ([facility] Hold - Provider: Admin Adt - Reason: Transfer to a Procedural area)1230 ([facility] Unhold - Provider: Admin [...] Routine bisacodyL (Dulcolax) suppository 10 mg 0805 ([facility] Hold - Provider: Admin Adt - Reason: Transfer to a Procedural area)1230 ([facility] Unhold - Provider: Admin Adt) 10 mg, Rectal, DAILY PRN, Starting on 12/09/21 at 1629, Until Wed12/12/21 at 1312, Constipation, Routine dextrose 10% infusion(Linked Group 2) 0805 ([facility] Hold - Provider: Admin Adt - Reason: Transfer to a Procedural area)1230 ([facility] Unhold - Provider: Admin [...] (Intra-Procedure), Routine niCARdipine (Cardene) (100 mcg/mL) dilution (FIBERGLASSER) (CANCELED) 1030 (Given - Provider: Vitaliy Nobles [...] episode. & nbsp; For persistent hypoglycemia, con glass loading equipment tender longer-acting treatment for the duration of the [...]
Routine documented in this encounter Care Teams Radiotelegraph Operator Relationship Specialty Start Date End Date Lovely Vicente MD PCP - General 04/16/[address] [place] [address] documented as of this encounter
--- OUTSIDE RECORDS SUMMARY | 2022-03-06 08:07 | XMS_ITS | Encounter Summary ---
:1945 Author Organization [facility] Address [facility] [place] [address] Care Team Providers Name Role Phone Lovely Vicente MD Primary Care Provider Reason for Referral Diagnostic Test (Routine) - Closed Specialty Diagnoses / Procedures Referred By Contact Refer red To Contact Cardiology Diagnoses Chronic systolic heart failure Danette Maxwell APRN [facility] Non-Inv Card Lab Procedures Echocardiogram Transthoracic(Leb) [facility] [place] [address] [place] [address] Referral ID Status Reason Start Date Expiration Date Visits V isits Requested Authorized [id number] Closed Specialty 07/17/2019 09/14/2019 1 1 Service Requested Encounter Details Date Type Department Care Team Description 01/16/2019 Office Visit Cardiology [place] [facility] Danette Maxwell, Chronic systolic heart failu re; [facility] STACIE Cardiomyopathy, ischemic; Drive [facility] Hx of thyroid cancer; [place], [place] [address] (arteriosclerotic heart disease); [phone] CARDIOLOGY MARIA VICTORIA (obstructive sleep apnea) on CPAP [phone] [place], [place] [address] (Wo rk) Social History Tobacco Use Types [...] K+ 4.6 today 6. Post-op atrial fibrillation [id number] 7 (CHF, HTN, DM, vascular disease, thromboembolism) [...] Nobles MD [facility] CARDIOLOGY [place], [place] [address] (Wo rk) 06/10/2022 Office Visit Dermatology Laura Scherer MD [facility] ER DR [address] GR-DERMAT OLOGY [place], [place] [address] (Wo rk) documented as of this encounter Results ECHOCARDIOGRAM COMPLETE W CONTRAST (07/28/2019 8:19 AM EST) athologist Signature EF 40 HEARTLAB SYSTEM Specimen (Source) Anatomical Location Collection Method / Collectio n Time Received Time / Laterality Volume 07/28/2019 Narrative HEARTLAB SYSTEM - 07/28/2019 8:38 AM EST Procedure: ?Transthoracic Echocardiogram Patient: ?NATALYA GREGORY Mccollum ? (Age): 1945(74y) Med Rec#: ? [id number] ?Sex: ?M ? [place] Loc: ? [facility] ?Ht / Wt: ??172(cm)/81(kg) Pt. Loc: ?Echo Lab ?BSA: ?1.94 Study Date: ?? 07/28/2019 ?Pt. Type: Outpatient Tape: ? Referring: MARY ELLEN Reading: Ifeanyi Truong () Company Truck Driver: Fadumo Flanagan RDCS, REGINA Diagnosis: *Chronic systolic [...] E-wave Vmax ?1 ?m/sec ? MV deceleration vqqt435.5 ? msec ? MV A-wave Vmax ?1 [...] ? Pulmonic Valve/Qp:Qs ?Value ?Units (Range) ? MN end-diastolic Vma1.1 ?m/sec ? Wall Motion: Segment Name ?Rest ? Base-Anteroseptal ?? Normal ? Base-Anterior ? Normal ? Base-Anterolateral ??Normal ? Base-Posterolateral Normal ? Base-Inferior ? Akinetic ? Base-Inferoseptal ?? Normal ? Mid-Anteroseptal ?Normal ? Mid-Anterior ?Hypokinetic ? Mid-Anterolateral ?? Normal ? Mid-Posterolateral ??Normal ? Mid-Inferior ?Hypokinetic ? Mid-Inferoseptal ?Normal ? [place]-Septal ? Normal ? [place]-Anterior ? Hypokinetic ? [place]-Lateral ?Normal ? [place]-Inferior ? Akinetic ? [place]-Tip ?Hypokinetic ? This report has been electronically sign ed by: _ Ifeanyi Truong M.D. ? 07/28/2019 0 8:38:01 Images reviewed and interpretation verThe [facility] Procedure Note Ifeanyi Truong MD - 07/28/2019Formatt ing of this note might be different from the original. Procedure: Transthoracic Echocardiogram Patient: NATALYA MCBRIDE(Age): [birth year]74y) Med Rec#: [id number] Sex: M [place] Loc[place] [facility] Ht / Wt: 172(cm)/81(kg) Pt. Loc: Echo Lab BSA: 1.94 Study Date: 07/28/2019 Pt. Type: Outpati ent Tape: Referring: MARY ELLEN Reading: Ifeanyi Truong ([id number]) Company Truck Driver: Fadumo Flanagan RDCS, FASE Diagnosis: *Chronic systolic [...] MV E-wave Vmax 1 m/sec MV deceleration zzub033.5 msec MV A-wave Vmax 1 m/sec MV [...] 0.7 ratio Pulmonic Valve/Qp:Qs Value Units (Range) MN end-diastolic Vma1.1 m/sec Wall Motion: Segment Name Rest Base-Anteroseptal Normal Base-Anterior Normal Base-Anterolateral Normal Base-Posterolateral Normal Base-Inferior Akinetic Base-Inferoseptal Normal Mid-Anteroseptal Normal Mid-Anterior Hypokinetic Mid-Anterolateral Normal Mid-Posterolateral Normal Mid-Inferior Hypokinetic Mid-Inferoseptal Normal [place]-Septal Normal [place]-Anterior Hypokinetic [place]-Lateral Normal [place]-Inferior Akinetic [place]-Tip Hypokinetic This report has been electronically sign ed by: _ Ifeanyi Truong M.D. 07/28/2019 08:38:0 1 Images reviewed and interpretation verif ied [facility] Cardiac Ultrasound Laboratory Danette Maxwell APRN ECHO ORDERABLES Performing Organization Address City/State/ZIP Code Phon e Number HEARTLAB SYSTEM (ABNORMAL) Basic Metabolic Panel (non-fasting) (01/16/2019 7:49 AM EDT) P athologist Signature Glucose Lvl 105 65 - 199 [facility] mg/dL [facility] Comment: Diabetes: >=200 mg/dL plus symp toms BUN 25 (H) 10 - 20 mg/dL [facility] Creatinine 1.08 0.80 - 1.50 [...] 15 mmol/L [facility] Calcium 9.2 8.5 - 10.5 [...] of body mass or the acutely ill. http://[facility] [place] CITYnkf eGFR 79 >=60 mL/min/1.73 m?? [facility] Comment: The eGFR was calculated using the CKD-EP I equation. As with all creatinine based estimates of kidney function, eGFR values calculated with the CKD-EPI equation are not accurate in patients wi th acute kidney failure, extremes of body mass or the acutely ill. http://[facility]/DHMCnkf Specimen Anatomical Collection Method Collection Time Receive d Time (Source) Location / / Volume Laterality Blood specimen 01/16/2019 7:49 AM 019 7:55 (specimen) EDT AM EDT Resulting Agency Comment Spec In Lab Danette Maxwell APRN CHEMISTRY ORDERABLES Performing Organization Address City/[facility]/[place] [address] (ABNORMAL) pro-Brain Natriuretic Peptide (01/16/2019 7:49 AM EDT) P athologist Signature ProBNP 780 (H) <=125 pg/mL [facility] Specimen Anatomical Collection Method Collection Time Receive d Time (Source) Location / / Volume Laterality Blood specimen 01/16/2019 7:49 AM 019 7:55 (specimen) EDT AM EDT Resulting Agency Comment Spec In Lab Danette Maxwell APRN CHEMISTRY ORDERABLES Performing Organization Address City/[facility]/[place] [address] documented in this encounter Visit Diagnoses Diagnosis Chronic systolic heart failure Cardiomyopathy, ischemic Other specified forms of chronic ischemi c heart disease Hx of thyroid cancer Personal history of malignant neoplasm o f thyroid ASHD (arteriosclerotic heart disease) Coronary atherosclerosis of unspecified type of vessel, council or graft MARIA VICTORIA (obstructive sleep apnea) on CPAP Obstructive sleep apnea (adult) (pediatr ic) Chronic systolic heart failure documented in this encounter Care Teams Scale Technician Relationship Specialty Start Date End Date Lovely Vicente MD PCP - General 04/16/[address] [place] [address] documented as of this encounter
--- OUTSIDE RECORDS SUMMARY | 2022-03-06 08:07 | XMS_ITS | Encounter Summary ---
:1945 Author Organization [facility] [place] [address] Care Team Providers Name Role Phone Lovely Vicente MD Primary Care Provider Reason for Visit Reason Comments Follow-up Skin Check Encounter Details Date Type Department Care Team Description 01/06/2018 Office Visit Dermatology at [facility] Formantipmirna nevi; Abdelrahman HOOPER MD History of melanoma; [address] [facility] [place] [address] [facility] [place], [place] [address] Social History Tobacco Use [...] encounter. Rigoberto Garcia MD Section of Dermatology [facility] documented in this encounter Plan of Treatment Upcoming Encounters Date Type Specialty Care Team Description 03/26/2022 Office Visit Cardiology Vitaliy Nobles MD [facility] ER [address] [place], [place] [address] (Wo rk) 06/10/2022 Office Visit Dermatology Laura Scherer MD [facility]ICAL [facility] ER DR TEJA GR-DERMAT [facility] [place] [place] [address] (Wo rk) documented as of this encounter Visit Diagnoses Diagnosis Multiple nevi Benign neoplasm of skin, site unspecifie d History of melanoma Personal history of malignant melanoma o f skin Seborrheic keratosis Other seborrheic keratosis documented in this encounter Care Teams Compressor Station Engineer Relationship Specialty Start Date End Date Lovely Vicente MD PCP - General 04/16/[address] [place] [address] documented as of this encounter
--- OUTSIDE RECORDS SUMMARY | 2022-03-06 08:07 | XMS_ITS | Encounter Summary ---
:1945 Author Organization [facility] [place] [address] Care Team Providers Name Role Phone Lovely Vicente MD Primary Care Provider Encounter Details Date Type Department Care Team Description 02/19/2020 Telephone Dermatology at [facility] Ariana Wilder LPN [address] [place] [address] Social History Tobacco Use Types Packs/Day [...] Nobles MD [facility] CARDIOLOGY [place], [place] [address] (Wo rk) 06/10/2022 Office Visit Dermatology Laura Scherer MD [facility] DR [address]-[facility]MAT [facility] [place] [address] (Wo rk) documented as of this encounter Visit Diagnoses Not on filedocumented in this encounter Care Teams Ferryboat Deckhand Relationship Specialty Start Date End Date Lovely Vicente MD PCP - General 04/16/[address] [place] [address] documented as of this encounter
--- OUTSIDE RECORDS SUMMARY | 2022-03-06 08:08 | XMS_ITS | Encounter Summary ---
:1945 Author Organization [facility] [place] [address] Care Team Providers Name Role Phone Lovely Vicente MD Primary Care Provider Encounter Details Date Type Department Care Team Description 11/29/2017 Laboratory Lab 3L Barbara Wiseman systoli c congestive heart failure; Appointment [facility] ASCVD (ar teriosclerotic cardiovascular disease); Hospital [place], [place] [address] Social History Tobacco Use Types [...] Vitaliy Nobles MD [facility] ER [address] [place], [place] [address] (Wo rk) 06/10/2022 Office Visit Dermatology Laura Scherer MD [facility] ER [address]-DERMAT OLOGY [place], [place] [address] (Wo rk) documented as of [...] Signature PT 23.0 (H) 9.4 - 12.5 [facility] LABORATORY INR 2.1 [facility] Comment: [...] City/State/[place] [address] (ABNORMAL) Basic Metabolic Panel (non-fasting) (11/29/2017 8:22 AM EDT) athologist Signature Glucose Lvl 217 (H) 65 - 199 [facility] mg/dL [facility] Comment: Diabetes: >=200 mg/dL plus symp toms BUN 26 (H) 10 - 20 mg/dL [facility]ORATORY Creatinine 0.96 0.80 - 1.50 mg/dL [facility] Sodium 137 135 - 145 mmol/L [facility] Potassium 4.1 3.5 - 5.0 mmol/L [facility] Comment: Please note: ??Patients with WBC >100,00 0 may have falsely elevated Potassium levels. ??For accurate Potassium quantif ication in these patients send serum separator tube (gold top) for subsequent determinations. ??Contact the Clinical Chemistry Laboratory if there are any qu estions. Chloride 97 (L) 98 - 107 mmol/L [facility] CO2 23 22 - 31 mmol/L [facility] Anion Gap 17 (H) 5 - 15 mmol/L [facility]ORATORY Calcium 8.5 8.5 - 10.5 mg/dL [facility] Estimated GFR >60 >=60 [facility]OR[facility] Comment: The reported eGFR should be multiplied b y 1.2 for patients. The MDRD is not an appropriate measure o f renal function for patients with body mass extremes or in patients with acute kidney failure. [email or web address]/DHnkdep [email or web address]://[employer]/DHMCnkf Specimen Anatomical Collection Method Collection Time Receive d Time (Source) Location / / Volume Laterality Blood specimen 11/29/2017 8:22 AM 018 8:29 (specimen) EDT AM EDT Resulting Agency Comment Spec In Lab Danette Maxwell APRN CHEMISTRY ORDERABLES Performing Organization Address City/State/[place] [address] (ABNORMAL) pro-Brain Natriuretic Peptide (11/29/2017 8:22 AM EDT) P athologist Signature ProBNP 1,769 (H) <=125 [facility] pg/mL [facility] Specimen Anatomical Collection Method Collection Time Receive d Time (Source) Location / / Volume Laterality Blood specimen 11/29/2017 8:22 AM 018 8:29 (specimen) EDT AM EDT Resulting Agency Comment Spec In Lab Danettebrock Maxwell APRN CHEMISTRY ORDERABLES Performing Organization Address City/State/ZIP Code Phon e Number [address] Lavender Tube HOLD (11/29/2017 8:14 AM EDT) [facility] gist Method Time Signature Lavender Hold Sample in [facility] lab. [facility]OR[facility] Specimen Anatomical Collection Method Collection Time Receive d Time (Source) Location / / Volume Laterality Blood specimen No Charge / 11/29/2017 8:14 AM 018 8:29 (specimen) Unknown EDT AM EDT Lovely Vicente MD HEMATOLOGY ORDERABLES Performing Organization Address City/[facility]/[place]IP [place] [address] documented in this encounter Visit Diagnoses Diagnosis Chronic systolic congestive heart failur e Chronic systolic heart failure ASCVD (arteriosclerotic cardiovascular d isease) Unspecified cardiovascular disease Cardiomyopathy, ischemic Other specified forms of chronic ischemi c heart disease documented in this encounter Care Teams Dive Master Relationship Specialty Start Date End Date Lovely Vicente MD PCP - General 04/16/[address] [place] [address] documented as of this encounter
--- OUTSIDE RECORDS SUMMARY | 2022-03-06 08:08 | XMS_ITS | Encounter Summary ---
:1945 Author Organization [facility] [place] [address] Care Team Providers Name Role Phone Lovely Vicente MD Primary Care Provider Reason for Referral Consultation (Routine) - Specialty Diagnoses / Procedures Referred By Contact Refer red To Contact Wound Healing Center Diagnoses Atheroembolism of foot, right Delayed surgical wound healing, subsequent encounter Aurelia Rivera PA [address] [facility] [place] [place] [address] Referral ID Status Reason Start Date Expiration Date Visits V isits Requested Authorized [id number] Consult, 09/08/2017 03/07/2018 1 1 Test & Treat Reason for Visit Reason Comments Wound Check My foot hurts Encounter Details Date Type Department Care Team Description 09/07/2017 Office Visit Vascular Surgery at MiguelAurelia PA Atheroembolism of foot, right; [facility] Delayed surgical wound healing, subseque nt encounter [facility] [place] [address] [phone] Social History Tobacco Use Types Packs/Day Years [...] home for VAC dressing changes from [facility]. Since his last visit his right forefoot wound VAC care has improved and [facility] nurses have maintained a better [...] SETUP performed by Manny Mcknight MD at [facility] MAIN OR ??? PRO AMPUTATION FOOT, TRANSMETATARSAL Right 08/09/2017 AMPUTATION, TRANSMETATARSAL (WRVU 12.71) performed by Yonathan Smith MD at [facility] MAIN OR ??? PRO CABG, ARTERIAL, SINGLE N/A 07/07/2017 @CABG, USING ARTERIAL GRAFT;SINGLE ARTERIAL GRAFT (WRVU 33.75) performed by Yuan Retana MD at [facility] MAIN OR ??? PRO CABG, ARTERY-VEIN, TWO N/A 07/07/2017 @CABG, TWO VENOUS GRAFTS & ARTERIAL GRAFT (WRVU 7.93) performed by Yuan Retana MD at [facility] MAIN OR ??? PRO COLONOSCOPY, REMV LESN, SNARE 01/16/2014 COLONOSCOPY, POLYPECTOMY, REMOVAL LESION BY SNARE performed by Nohemi Jaimes MD at [facility] ENDOSCOPY ??? PRO DRESSING CHANGE UNDER ANESTHESIA Right 08/11/2017 (MSURG) DRESSING CHANGE (FOR OTHER THAN IVAN) UNDER ANES. (WRVU 0.86) performed by Lamar Smith MD at [facility] MAIN OR ??? PRO ENDOSCOPY W/VIDEO-ASST VEIN HARVEST, CABG Right 07/07/2017 ENDOSCOPIC HARVEST VEIN(S) FOR CABG (WRVU 0.31) performed by Yuan Retana MD at [facility] MAIN OR ??? PRO THYROIDECTOMY 03/28/2013 THYROIDECTOMY, TOTAL OR COMPLETE performed by Manny Mcknight MD at [facility] OR Social Hx: Social History Substance [...] MD [facility] [address] [place], [place] [address] (Wo rk) 06/10/2022 Office Visit Dermatology Laura Scherer MD [facility] DR [address]MAT [place], [place] [address] (Wo rk) Scheduled Referrals Name Type Priority Associated Diagnoses Order S chedule Referral to Wound Outpatient Referral Routine Atheroembolism o f foot, Ordered: Clinic right 09/08/2017 Delayed surgical wound healing, subsequent encounter documented as of this encounter Visit Diagnoses Diagnosis Atheroembolism of foot, right Delayed surgical wound healing, subseque nt encounter documented in this encounter Care Teams Masking Machine Operator Relationship Specialty Start Date End Date Lovely Vicente MD PCP - General 04/16/[address] [place] [address] documented as of this encounter
--- OUTSIDE RECORDS SUMMARY | 2022-03-06 08:08 | XMS_ITS | Encounter Summary ---
:1945 Author Organization [facility] [place] [address] Care Team Providers Name Role Phone Lovely Vicente MD Primary Care Provider Reason for Visit Reason Onset Date Comments VNA Calls 08/30/2017 Encounter Details Date Type Department Care Team Description 08/30/2017 Telephone Vascular Surgery at [facility] Cora Redi RN VNA Calls [facility] [place] [address] Social History Tobacco Use Types Packs/Day [...] 08/30/2017 11:16 AM EST Caller: Alfonso at [facility] [phone] Reason for call: Changing his wound vac [...] Alfonso who had been in contact with [facility]'s Wound Care Nurse who advised him to [...] Nobles MD [facility] [address] T[address] [place], [place] [address] (Wo rk) 06/10/2022 Office Visit Dermatology Laura Scherer MD [facility] DR TEJA GR-DERMAT [facility] [place], [place] [address] (Wo rk) documented as of this encounter Visit Diagnoses Not on filedocumented in this encounter Care Teams Manager Data Relationship Specialty Start Date End Date Lovely Vicente MD PCP - General 04/16/[address] [place] [address] documented as of this encounter
--- OUTSIDE RECORDS SUMMARY | 2022-03-06 08:08 | XMS_ITS | Encounter Summary ---
:1945 Author Organization [facility] [place] [address] Care Team Providers Name Role Phone Lovely Vicente MD Primary Care Provider Encounter Details Date Type Department Care Team Description 09/03/2017 Telephone [place] Surgery [place] [facility] Ninfa Clark, [place] [address] Social History Tobacco Use Types Packs/Day [...] help with the discomfort of the change. Automotive Technology Instructor told the VNA that I would ask [...] Nobles MD [facility] ER DR TADEO [place], [place] [address] (Wo rk) 06/10/2022 Office Visit Dermatology Laura Scherer MD [facility] DR TEJA GR-DERMAT [facility] [place], [place] [address] (Wo rk) documented as of this encounter Visit Diagnoses Not on filedocumented in this encounter Care Teams Muck Hauler Relationship Specialty Start Date End Date Lovely Vicente MD PCP - General 04/16/[address] [place] [address] documented as of this encounter
--- OUTSIDE RECORDS SUMMARY | 2022-03-06 08:08 | XMS_ITS | Encounter Summary ---
:1945 Author Organization [facility] [place] [address] Care Team Providers Name Role Phone Lovely Vicente MD Primary Care Provider Encounter Details Date Type Department Care Team Description 09/16/2017 Hospital [place] [address] Social History Tobacco Use Types Packs/Day [...] Vitaliy Nobles MD [facility] CARDIOLOGY [place], [place] [address] (Wo rk) 06/10/2022 Office Visit Dermatology Laura Scherer MD [facility] DR TEJA GR-DERMAT [place], [place] [address] (Wo rk) documented as of this encounter Procedures Procedure Name Priority Date/Time Associated Diagnosis Comme [facility] SURGICAL PATHOLOGY Routine 09/16/2017 7:28 AM Res ults for this REPORT EST procedure are i n the results section. documented in this encounter Results Surgical Pathology Report (09/16/2017 7:28 AM EST) Component Value Ref Test Analysis Performed At [facility] Range Method Time Signature Surgical [id number] ? Location: [facility] Pathology [place] Report The signing pathologist has (i) examined [...] Henrique Flower Verified: ??09/24/2017 ?Pathologist Performed at: ??-[facility] Dept. of Pathology, [place], [place] CLINICAL INFORMATION Specimen Submitted: A - [...] Organization Address City/State/ZIP Code Phon e Number [place], [place] [id number] [place] [address] documented in this encounter Visit Diagnoses Not on filedocumented in this encounter Care Teams Clerk General Relationship Specialty Start Date End Date Lovely Vicente MD PCP - General 04/16/[address] [place] [address] documented as of this encounter
--- OUTSIDE RECORDS SUMMARY | 2022-03-06 08:08 | XMS_ITS | Encounter Summary ---
:1945 Author Organization [facility] [place] [address] Care Team Providers Name Role Phone Lovely Vicente MD Primary Care Provider Encounter Details Date Type Department Care Team Description 08/25/2017 Telephone Pain Management at [place] Bueno, [place] [address] Social History Tobacco Use Types Packs/Day [...] Management Center Preauthorization Request Patient: Don Fatima [id number] Fax received from [employer] denying prior authorization for Lidocaine Patches prescribed by Barbra Soares APRN. RX insurance plan: [employer] RX insurance telephone: [phone] Patient Diagnosis: right foot pain secondary to PVD and ischemia ? Previous medications attempted: Tylenol, Tramadol, Dilaudid Authorization/Reference number: [id number] _x_ denied, provider and patient informed _x_ appeal initiated by provider, patient informed [place] Rodrigez, RN documented in this encounter Plan of Treatment Upcoming Encounters Date Type Specialty Care Team Description 03/26/2022 Office Visit Cardiology Vitaliy Nobles MD [facility] ER DR TADEO [place], [place] [address] (Wo rk) 06/10/2022 Office Visit Dermatology Laura Scherer MD [facility] DR TEJA GR-DERMAT [place], [place] [address] (Wo rk) documented as of this encounter Visit Diagnoses Not on filedocumented in this encounter Care Teams Tool Polisher Relationship Specialty Start Date End Date Lovely Vicente MD PCP - General 04/16/[address] [place] [address] documented as of this encounter
--- OUTSIDE RECORDS SUMMARY | 2022-03-06 08:08 | XMS_ITS | Encounter Summary ---
:1945 Author Organization [facility] [place] [address] Care Team Providers Name Role Phone Lovely Vicente MD Primary Care Provider Encounter Details Date Type Department Care Team Description 09/06/2017 Orders Only Vascular Surgery at [facility] Ninfa Clark, [facility] [place] [address] Social History Tobacco Use Types Packs/Day [...] MD [facility] ER CARDIOLOGY [place], [place] [address] (Wo rk) 06/10/2022 Office Visit Dermatology Laura Scherer MD [facility] ER DR TEJA GR-DERMAT [place], [place] [address] (Wo rk) documented as of this encounter Visit Diagnoses Not on filedocumented in this encounter Care Teams Computer Repairer Relationship Specialty Start Date End Date Lovely Vicente MD PCP - General 04/16/[address] [place] [address] documented as of this encounter
--- OUTSIDE RECORDS SUMMARY | 2022-03-06 08:08 | XMS_ITS | Encounter Summary ---
:1945 Author Organization [place] [address] Care Team Providers Name Role Phone Lovely Vicente MD Primary Care Provider Encounter Details Date Type Department Care Team Description 09/06/2017 Telephone Vascular Surgery at [facility] Ninfa Clark, [place] [address] Social History Tobacco Use Types Packs/Day [...] Vitaliy Nobles MD [facility] ER DR TADEO [place], [place] [address] (Wo rk) 06/10/2022 Office Visit Dermatology Laura Scherer MD [facility] DR [address]-DERMAT [place], [place] [address] (Wo rk) documented as of this encounter Visit Diagnoses Not on filedocumented in this encounter Care Teams Supervisor Silvering Department Relationship Specialty Start Date End Date Lovely Vicente MD PCP - General 04/16/[address] [place] [address] documented as of this encounter
--- OUTSIDE RECORDS SUMMARY | 2022-03-06 08:08 | XMS_ITS | Encounter Summary ---
:1945 Author Organization [facility] [place] [address] Care Team Providers Name Role Phone Lovely Vicente MD Primary Care Provider Encounter Details Date Type Department Care Team Description 10/05/2017 Unscheduled Cardiology at [facility] RONNIE Sin PATIENT NOT SEEN Encounter [facility] Tamiko Martinez MD [facility] [address] CARDIOLOGY DEPT [phone] [place] [address] Social History Tobacco Use Types Packs/Day Years [...] [facility] ER DR TADEO [place], [place] [address] (Wo rk) 06/10/2022 Office Visit Dermatology Laura Scherer MD [facility] [address] TEJA GR-DERMAT [place], [place] [address] (Wo rk) documented as of this encounter Visit Diagnoses Diagnosis DH PATIENT NOT SEEN documented in this encounter Care Teams Completion Manager Relationship Specialty Start Date End Date Lovely Vicente MD PCP - General 04/16/15 [facility] [address] [place] [address] documented as of this encounter
--- OUTSIDE RECORDS SUMMARY | 2022-03-06 08:08 | XMS_ITS | Encounter Summary ---
:1945 Author Organization [facility] [place] [address] Care Team Providers Name Role Phone Lovely Vicente MD Primary Care Provider Reason for Visit Reason Onset Date Comments Other 11/11/2017 Please call [facility] Encounter Details Date Type Department Care Team Description 11/11/2017 Telephone Cardiology at [facility] Danette Maxwell, Other (Please call [facility] DERRICK HELPER [facility] ) [place] [address] CARDIOLOGY [place], [place] [address] (Wo rk) Social History Tobacco [...] MD [facility] ER CARDIOLOGY [place], [place] [address] (Wo rk) 06/10/2022 Office Visit Dermatology Laura Scherer MD [facility] [address] TEJA GR-DERMAT [place], [place] [address] (Wo rk) documented as of this encounter Visit Diagnoses Not on filedocumented in this encounter Care Teams Commercial Construction Estimator Relationship Specialty Start Date End Date Lovely Vicente MD PCP - General 04/16/15 [facility] [address] [place] [address] documented as of this encounter
--- OUTSIDE RECORDS SUMMARY | 2022-03-06 08:08 | XMS_ITS | Encounter Summary ---
:1945 Author Organization [facility] [place] [address] Care Team Providers Name Role Phone Lovely Vicente MD Primary Care Provider Encounter Details Date Type Department Care Team Description 09/07/2017 Laboratory Appointment Lab 3L [facility] of [facility] [place] [address] Social History Tobacco Use Types Packs/Day Years [...] [facility] ER CARDIOLOGY [place], [place] [address] (Wo rk) 06/10/2022 Office Visit Dermatology Laura Scherer MD [facility] ER DR TEJA GR-DERMAT [place], [place] [address] (Wo rk) documented as of [...] PM EST) athologist Signature Thyroglobulin 1.4 <=54.9 [facility] ng/mL [facility] Comment: Thyroglobulin levels may [...] Thyroglob Ab <20.0 0.0 - 40.0 IU/mL [facility] Comment: Assay performed is [...] Organization Address City/[facility]/ZIP Code Phon e Number [address] TSH (09/07/2017 2:41 PM EST) P athologist Signature TSH 3.93 0.27 - 4.20 [facility] mlU/ML [facility] Specimen Anatomical Collection Method Collection Time Receive d Time (Source) Location / / Volume Laterality Blood specimen 09/07/2017 2:41 PM 018 2:46 (specimen) EST PM EST Resulting Agency Comment Spec In Lab Luz Prescott MD CHEMISTRY ORDERABLES Performing Organization Address City/[facility]/ZIP Code Phon e Number [facility] [place] [address] documented in this encounter Visit Diagnoses Diagnosis Hx of papillary thyroid carcinoma Personal history of malignant neoplasm o f thyroid documented in this encounter Care Teams Medical Referral Coordinator Relationship Specialty Start Date End Date Lovely Vicente MD PCP - General 04/16/[address] [place] [address] documented as of this encounter
--- OUTSIDE RECORDS SUMMARY | 2022-03-06 08:08 | XMS_ITS | Encounter Summary ---
:1945 Author Organization [facility] [place] [address] Care Team Providers Name Role Phone Lovely Vicente MD Primary Care Provider Encounter Details Date Type Department Care Team Description 10/07/2017 Laboratory Appointment Lab 3L [facility] [place] [address] Social History Tobacco Use Types Packs/Day Years [...] MD [facility] DR TADEO [place], [place] [address] (Wo rk) 06/10/2022 Office Visit Dermatology Laura Scherer MD [facility] DR TEJA GR-DERMAT [place], [place] [address] (Wo rk) documented as of [...] Signature Glucose Lvl 99 65 - 199 [facility] mg/dL [facility] LABORATORY [...] [facility] Estimated GFR >60 >=60 [facility] Comment: The reported eGFR should be multiplied b y 1.2 for patients. The MDRD is not an appropriate measure o f renal function for patients with body mass extremes or in patients with acute kidney failure. http://[employer]/DHnkdep http://[employer]ob[employer]/DHMCnkf Specimen Anatomical Collection Method Collection Time Receive d Time (Source) Location / / Volume Laterality Blood specimen 10/07/2017 8:48 AM 018 8:50 (specimen) EDT AM EDT Resulting Agency Comment Spec In Lab Danette Maxwell X RAY OPERATOR CHEMISTRY ORDERABLES Performing Organization Address City/State/[place] [address] (ABNORMAL) pro-Brain Natriuretic Peptide (10/07/2017 8:48 AM EDT) P athologist Signature ProBNP 1,170 (H) <=125 [facility] pg/mL [facility] Specimen Anatomical Collection Method Collection Time Receive d Time (Source) Location / / Volume Laterality Blood specimen 10/07/2017 8:48 AM 018 8:50 (specimen) EDT AM EDT Resulting Agency Comment Spec In Lab Danette Eliseo Maxwell APRN CHEMISTRY ORDERABLES Performing Organization Address City/State/[place] [address] documented in this encounter Visit Diagnoses Diagnosis Chronic systolic heart failure documented in this encounter Care Teams Menhaden Vessel Pilot Relationship Specialty Start Date End Date Lovely Vicente MD PCP - General 04/16/[address] [place] [address] documented as of this encounter
--- OUTSIDE RECORDS SUMMARY | 2022-03-06 08:08 | XMS_ITS | Encounter Summary ---
:1945 [place] [address] Care Team Providers Name Role Phone Lovely Vicente MD Primary Care Provider Encounter Details Date Type Department Care Team Description 08/26/2017 Hospital Encounter Vascular Lab at [facility], Athero embolism of foot, right; [place], [place] Delayed surgi nusrat wound healing, [place] [address] Social History Tobacco Use Types Packs/Day Years [...] MD [facility] [address] T[address] [place], [place] [address] (Wo rk) 06/10/2022 Office Visit Dermatology Laura Scherer MD [facility] [address]-DERMAT [place], [place] [address] (Wo rk) documented as of [...] At [facility] Range Method Time Signature VB Text Department: Vascular Surgery Lab VASCUBASE Report Patient: [id number] (DON HOANG) CPT: 26231 ICD10: T81.89XA;I75.021 Referring Physician: ELVER BLOOM ?? [...] encounter documented in this encounter Care Teams Founder Chairman And Chief Creative Officer Relationship Specialty Start Date End Date Lovely Vicente MD PCP - General 04/16/[address] [place] [address] documented as of this encounter
--- OUTSIDE RECORDS SUMMARY | 2022-03-06 08:08 | XMS_ITS | Encounter Summary ---
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 Espino On IV antibiotics at [facility] Today: Mr. Fatima is accompanied by [...] continue to see Dr. Bains well at [facility] and follow his wound on his right lower extremity. And she will continue to direct antibiotic treatment. Ihave asked that the echocardiogram results be faxed to Dr. Zurita at [facility]. 1. ASCVD Continue ASA, BB and [...] and bone removal by Dr. Aguero at [facility]. Currently receiving IV antibiotics at [facility] ? Plan: 1. A review of [...] MD [facility] DR TADEO [place], [place] [address] (Wo rk) 06/10/2022 Office Visit Dermatology Laura Scherer MD [facility] DR TEJA GR-DERMAT [facility] [place], [place] [address] (Wo rk) documented as of this encounter Results (ABNORMAL) Basic Metabolic Panel (non-fasting) (10/07/2017 8:48 AM EDT) athologist Signature Glucose Lvl 99 65 - 199 [facility] mg/dL [facility] Comment: Diabetes: >=200 mg/dL plus symp toms BUN 27 (H) 10 - 20 mg/dL [facility] Creatinine 1.07 0.80 - 1.50 mg/dL [facility] [...] 15 mmol/L [facility] Calcium 8.4 (L) 8.5 - 10.5 mg/dL [facility] LABORATORY Estimated GFR >60 >=60 [facility] Comment: The reported eGFR should be multiplied b y 1.2 for patients. The MDRD is not an appropriate measure o f renal function for patients with body mass extremes or in patients with acute kidney failure. http://[employer]/DHnkdep http://[employer]/DHMCnkf Specimen Anatomical Collection Method Collection Time Receive d Time (Source) Location / / Volume Laterality Blood specimen 10/07/2017 8:48 AM 018 8:50 (specimen) EDT AM EDT Resulting Agency Comment Spec In Lab Danette Maxwell APRN CHEMISTRY ORDERABLES Performing Organization Address City/[facility]/[place] [address] (ABNORMAL) pro-Brain Natriuretic Peptide (10/07/2017 8:48 AM EDT) P athologist Signature ProBNP 1,170 (H) <=125 [facility] pg/mL [facility] LABOR[facility] Specimen Anatomical Collection Method Collection Time Receive d Time (Source) Location / / Volume Laterality Blood specimen 10/07/2017 8:48 AM 018 8:50 (specimen) EDT AM EDT Resulting Agency Comment Spec In Lab Danette Maxwell APRN CHEMISTRY ORDERABLES Performing Organization Address City/State/[place] [address] documented in this encounter Visit Diagnoses Diagnosis Chronic systolic heart failure S/P CABG x 3 Postsurgical aortocoronary bypass status On amiodarone therapy Atrial fibrillation, unspecified type ASCVD (arteriosclerotic cardiovascular d isease) Unspecified cardiovascular disease documented in this encounter Care Teams Certified Public Accountant Relationship Specialty Start Date End Date Lovely Vicente MD PCP - General 04/16/[address] [place] [address] documented as of this encounter
--- OUTSIDE RECORDS SUMMARY | 2022-03-06 08:08 | XMS_ITS | Encounter Summary ---
:1945 Author Organization [facility] [place] [address] Care Team Providers Name Role Phone Lovely Vicente MD Primary Care Provider Encounter Details Date Type Department Care Team Description 08/30/2017 [facility] ischemia [facility] [address] [place], [place] VASCULAR SURGERY [address] [place] [address] [phone] Social History Tobacco Use Types Packs/Day Years [...] Smith MD - 08/30/2017 2:00 PM EST [facility] staff: Patient returns. He is [...] Nobles MD [facility] DR T[address] [place], [place] [address] (Wo rk) 06/10/2022 Office Visit Dermatology Laura Scherer MD [facility] DR [address]-DERMAT [place], [place] [address] (Wo rk) documented as of this encounter Visit Diagnoses Diagnosis Critical lower limb ischemia Unspecified circulatory system disorder documented in this encounter Care Teams After School Teacher Relationship Specialty Start Date End Date Lovely Vicente MD PCP - General 04/16/[address] [place] [address] documented as of this encounter
--- OUTSIDE RECORDS SUMMARY | 2022-03-06 08:08 | XMS_ITS | Encounter Summary ---
:1945 Author Organization [facility] [place] [address] Care Team Providers Name Role Phone Lovely Vicente MD Primary Care Provider Reason for Visit Reason Comments Follow-up Encounter Details Date Type Department Care Team Description 08/19/2017 Office Visit Cardiac Surgery at [facility], Jock S/P C ABG (coronary [facility] N, artery bypass graft) [facility] [place] CARDIOTHORACIC [address] SURGERY [phone] [place], [place] [address] Social History Tobacco Use [...] office. Best personal regards, Yuan [facility] MD [phone] documented in this encounter Plan of Treatment Upcoming Encounters Date Type Specialty Care Team Description 03/26/2022 Office Visit Cardiology Vitaliy Nobles MD [facility] DR TADE[address] [place], [place] [address] (Wo rk) 06/10/2022 Office Visit Dermatology Laura Scherer MD [facility] DR TEJA GR-DERMAT [place], [place] [address] (Wo rk) documented as [...] 454 ms MUSE SYSTEM (Bezet) Calculated P Muir 20 degrees MUSE SYSTEM Calculated R Muir -29 degrees MUSE SYSTEM Calculated T Muir 121 degrees MUSE SYSTEM INTERPRETATION Normal sinus rhythm MUSE SYSTEM Inferior infarct (cited on or before 25-JAN-2013) Anterior 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) T wave abnormality, consider lateral ischemia Abnormal ECG When compared with ECG of 06-AUG-2017 12:37, No signif icant change was found Confirmed by MD Luci, Taurus Braun ([id number]) on 08/19/2017 1 0:37:38 PM Specimen Anatomical [...] status documented in this encounter Care Teams Welt Butter Hand Relationship Specialty Start Date End Date Lovely Vicente MD PCP - General 04/16/[address] [place] [address] documented as of this encounter
--- OUTSIDE RECORDS SUMMARY | 2022-03-06 08:08 | XMS_ITS | Encounter Summary ---
:1945 Author Organization [facility] [place] [address] Care Team Providers Name Role Phone Lovely Vicente MD Primary Care Provider Reason for Referral Diagnostic Test (Routine) - Closed Specialty Diagnoses / Procedures Referred By Contact Refer red To Contact Cardiology Diagnoses Ischemic cardiomyopathy Acute on chronic systolic congestive heart failure Danette Maxwell APRN [facility] Non-Inv Card Lab Procedures Echocardiogram Transthoracic(Leb) [place] [address] [place] [address] Referral ID Status Reason Start Date Expiration Date Visits V isits Requested Authorized [id number] Closed Specialty 08/30/2017 08/30/2018 1 1 Service Requested Reason for Visit Diagnostic Test (Routine) - Closed Specialty Diagnoses / Procedures Referred By Contact Refer red To Contact Cardiology Diagnoses Ischemic cardiomyopathy Acute on chronic systolic congestive heart failure Danette Maxwell APRN [facility] Non-Inv Card Lab Procedures Echocardiogram Transthoracic(Leb) [place] [address] [place] [address] Referral ID Status Reason Start Date Expiration Date Visits V isits Requested Authorized [id number] Closed Specialty 08/30/2017 08/30/2018 1 1 Service Requested Encounter Details Date Type Department Care Team Description 10/07/2017 Hospital Encounter Non-Invasive Ischemic cardiomyopathy; Cardiology Lab Barbara Craig on chronic systolic [place] [address] Social History Tobacco Use Types Packs/Day [...] Vitaliy Nobles MD [facility] CARDIOLOGY [place], [place] [address] (Wo rk) 06/10/2022 Office Visit Dermatology Laura Scherer MD [facility] DR TEJA [address] [place] [id number] (Wo rk) documented as of this encounter [...] Veda ? (Age): 1945(72y) Med Rec#: ? [id number] ?Sex: ?M ? [place] ? [facility]t / Wt: ??173(cm)/82(kg) Pt. Loc: ?Echo Lab ?BSA: ?1.96 Study Date: ?? 10/07/2017 ?Pt. Type: Outpatient Tape: ? Referring: Danette Maxwell Reading: Iker Cuevas ([id number]) Adjunct Lecturer: Yonathan Bocanegra Diagnosis: *ICD-10-PCS Ischemic cardiomyopathy (I2 [...] E-wave Vmax ?1.2 ?m/sec ? MV deceleration [id number] ?msec ? MV A-wave Vmax ?1 ?m/sec [...] ? Mid-Inferior ?Hypokinetic ? Mid-Inferoseptal ?Hypokinetic ? [place]-Septal ? Akinetic ? [place]-Anterior ? Hypokinetic ? [place]-Lateral ?Hypokinetic ? [place]-Inferior ? Hypokinetic ? [place]-Tip ?Akinetic ? This report has been electronically sign ed by: _ Iker Cuevas M.D. ? 10/07/2017 11:12:34 Images reviewed and interpretation verif ied [facility] Procedure Note Iker Cuevas MD - 10/07/2017Formatti ng of this note might be different from the original. Procedure: Transthoracic Echocardiogram Patient: NATALYA MCBRIDE(Age): [birth year]72y) Med Rec#: [id number] Sex: M [place] [facility] [place]t / Wt: 173(cm)/82(kg) Pt. Loc: Echo Lab BSA: 1.96 Study Date: 10/07/2017 Pt. Type: Outpati ent Tape: Referring: Danette Maxwell Reading: Iker Cuevas ([id number]) Adjunct Lecturer: Yonathan Bocanegra Diagnosis: *ICD-10-PCS Ischemic cardiomyopathy (I2 [...] MV E-wave Vmax 1.2 m/sec MV deceleration [id number] msec MV A-wave Vmax 1 m/sec MV [...] Akinetic Mid-Posterolateral Hypokinetic Mid-Inferior Hypokinetic Mid-Inferoseptal Hypokinetic [place]-Septal Akinetic [place]-Anterior Hypokinetic [place]-Lateral Hypokinetic [place]-Inferior Hypokinetic [place]-Tip Akinetic This report has been electronically sign ed by: _ Iker Cuevas M.D. 10/07/2017 11:12 :34 Images reviewed and interpretation elvie hwang [facility] Danette Maxwell APRN ECHO [...] Routine documented in this encounter Care Teams Reaming Press Operator Relationship Specialty Start Date End Date Lovely Vicente MD PCP - General 04/16/[address] [place] [address] documented as of this encounter
--- OUTSIDE RECORDS SUMMARY | 2022-03-06 08:08 | XMS_ITS | Encounter Summary ---
:1945 Author Organization [facility] [place] [address] Care Team Providers Name Role Phone Lovely Vicente MD Primary Care Provider Encounter Details Date Type Department Care Team Description 08/19/2017 Office Visit Vascular Surgery at [place], PAD (peripheral artery [facility] disease) Count includes the [facility] [address] [place], [place] VASCULAR SURGERY [address] [place] [address] [phone] Social History Tobacco Use Types Packs/Day Years [...] MD [facility] CARDIOLOGY [place], [place] [address] (Wo rk) 06/10/2022 Office Visit Dermatology Laura Scherer MD [facility] DR TE[address] [place], [place] [address] (Wo rk) documented as of this encounter Visit Diagnoses Diagnosis PAD (peripheral artery disease) Peripheral vascular disease, unspecified documented in this encounter Care Teams Casino Cage Cashier Relationship Specialty Start Date End Date Lovely Vicente MD PCP - General 04/16/[address] [place] [address] documented as of this encounter
--- OUTSIDE RECORDS SUMMARY | 2022-03-06 08:08 | XMS_ITS | Encounter Summary ---
:1945 Author Organization [facility] [place] [address] Care Team Providers Name Role Phone Lovely Vicente MD Primary Care Provider Reason for Visit Reason Comments Follow-up I'm having trouble with the VAC Encounter Details Date Type Department Care Team Description 08/26/2017 Office Visit Vascular Surgery at [facility], STEPHANIE Mercado Atheroembolism of foot, right; [facility] [address] Delayed surgical wound healing, initial encounter; [facility] VASCULAR SURG YEHUDA Acute on chronic systolic congestive hea rt failure ; [place], [place] [address] [phone] Social History Tobacco Use Types Packs/Day Years [...] home and into the care of the [facility]. However, since discharge [place] [facility] he has had some difficulty with continuation [...] [facility] ??? PRO AMPUTATION FOOT, TRANSMETATARSAL Right 08/09/2017 AMPUTATION, TRANSMETATARSAL (WRVU 12.71) performed by Yonathan Smith MD at [facility] MAIN [...] [facility] ENDOSCOPY ??? PRO DRESSING CHANGE UNDER ANESTHESIA Right 08/11/2017 (MSURG) DRESSING CHANGE (FOR OTHER THAN IVAN) UNDER ANES. (WRVU 0.86) performed by Lamar Smith MD at [facility] MAIN OR ??? PRO ENDOSCOPY W/VIDEO-ASST VEIN HARVEST, CABG Right 07/07/2017 ENDOSCOPIC HARVEST VEIN(S) FOR CABG (WRVU 0.31) performed by Yuan Retana MD at [facility] MAIN OR ??? PRO THYROIDECTOMY 03/28/2013 THYROIDECTOMY, TOTAL OR COMPLETE performed by Manny Mcknight MD at [facility] MAIN OR Social Hx: Social [...] MD [facility] [address] [place], [place] [address] ([facility]) 06/10/2022 Office Visit Dermatology Laura Scherer MD [facility] DR TEJA RG-[address]MAT [facility] [place], [place] [address] (Wo rk) documented as of [...] Department: Vascular Surgery Lab VASCUBASE Report Patient: [id number] (GREGORY HOANG) CPT: 90845 ICD10: T81.89XA;I75.021 Referring Physician: ARIK BLOOM ?? [...] Lvl 98 65 - 199 [facility] mg/dL [facility] Comment: Diabetes: >=200 mg/dL plus symp toms BUN 20 10 - 20 mg/dL [facility] Creatinine 1.17 0.80 - [...] 15 mmol/L [facility] Calcium 9.1 8.5 - 10.5 mg/dL [facility] Estimated GFR >60 >=60 [facility] Comment: The reported eGFR should be multiplied b y 1.2 for patients. The MDRD is not an appropriate measure o f renal function for patients with body mass extremes or in patients with acute kidney failure. http://Hipvan.WeWork/DHnkdep http://[employer]/DHMCnkf Specimen Anatomical Collection Method Collection Time Receive d Time (Source) Location / / Volume Laterality Blood specimen 08/26/2017 2:00 PM 018 2:15 (specimen) EST PM EST Resulting Agency Comment Spec In Lab Danette Maxwell STACIE CHEMISTRY ORDERABLES Performing Organization Address City/State/ZIP Code Phon e Number [address] (ABNORMAL) pro-Brain Natriuretic Peptide (08/26/2017 2:00 PM EST) P athologist Signature ProBNP 2,373 (H) <=125 [facility] pg/mL [facility] Specimen Anatomical Collection Method Collection Time Receive d Time (Source) Location / / Volume Laterality Blood specimen 08/26/2017 2:00 PM 018 2:15 (specimen) EST PM EST Resulting Agency Comment Spec In Lab Danette Maxwell STACIE CHEMISTRY ORDERABLES Performing Organization Address City/[facility]/[place] [address] documented in this encounter Visit Diagnoses Diagnosis Atheroembolism of foot, right Delayed surgical wound healing, initial encounter Acute on chronic systolic congestive hea rt failure Acute on chronic systolic heart failure Ischemic cardiomyopathy Other specified forms of chronic ischemi c heart disease documented in this encounter Care Teams Sheet Rock Taper Relationship Specialty Start Date End Date Lovely Vicente MD PCP - General 04/16/[address] [place] [address] [address] [place] [address] documented as of this encounter
--- OUTSIDE RECORDS SUMMARY | 2022-03-06 08:09 | XMS_ITS | Encounter Summary ---
:1945 [place] [address] Care Team Providers Name Role Phone Lovely Vicente MD Primary Care Provider Reason for Visit Auth/Cert Specialty Diagnoses / Procedures Referred By Contact Refer red To Contact Diagnoses Critical lower limb ischemia CELLULITIS RT FOOT Procedures EMERGENCY Referral ID Status Reason Start Date Expiration Date Visits Requ ested Visits Authorized [id number] 1 1 Encounter Details Date Type Department Care Team Description 08/06/2017 - Hospital Encounter 5 Yonathan Oneill lower limb ischemia; 08/16/2017 Su Flores MD Ischemic foot Hospital [facility] [address] [place] [phone] Social History Tobacco Use Types Packs/Day Years [...] 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 [...] Dorsalis Pedis (Ankle) Artery ?132 ? 0.94 ??[place]-Biphasic ? Posterior Tibial (Ankle) Artery ??154 ? 1.10 ??[place]-Biphasic ? Fourth Toe ? 67 ?0.48 ?? [...] the foot. Discharge Conditions/Prognosis: Good Discharge to: [facility] Rehab Discharge Medications: Your Medications New [...] For any problems or questions please call [phone] ZELDA Smith, escrow clerk Nurse Clinician For issues on weeknights after 5pm and weekends please call [phone] and ask for the Vascular Fellow asset protection manager. General Instructions None Future Appointments and Orders Future Appointments Provider Department Dept Phone 08/26/2017 4:00 PM Aurelia Rivera PA Vascular Surgery at [place] [phone] 09/07/2017 3:00 PM LAB, THREE L Lab 3L [facility] [phone] 09/07/2017 4:00 PM Luz Prescott MD Endocrinology at [place] [phone] 09/09/2017 8:00 AM Barbra Soares APRN Pain Management at [place] [phone] Please bring a list of your current [...] For any problems or questions please call [phone] ZELDA Smith, escrow clerk Nurse Clinician For issues on weeknights after 5pm and weekends please call [phone] and ask for the Vascular Fellow asset protection manager. documented in this encounter Medications at [...] of Care Management Discharge Note Patient Destination: [facility] ([facility]) [address] [place] [address] Transportation: with (at bedside) Time of Discharge: by 12 noon Level of Care: swing Patient Aware: yes Family Notified: yes Md to call report to: Yissle Quintero WILDLIFE CONSERVATIONIST already called RN to call report to: [phone] Shirin Wolf Office of Care Management Pager [phone] Shirin Wolf RN - 08/16/2017 10:50 AM EST [facility] has offered pt swing bed. Pt and accept bed. will transport via car. WILDLIFE CONSERVATIONIST Yissel Quintero aware; d/c paperwork will be completed by 12 noon. [facility] requests pt arrival by 1400 today; WILDLIFE CONSERVATIONIST, RN, and family aware. WILDLIFE CONSERVATIONIST called [facility] and was told that they prefer pt to arrive with wound vac dressing applied but clamped. WILDLIFE CONSERVATIONIST applied new wound vac dressing. RN has [facility] number to call report. PASSR completed; WILDLIFE CONSERVATIONIST paged to request provider signature in highlighted [...] 08/16/2017 10:34 AM EST Office of Care Management/Financial Reporting Manager Patient Name: Gregory Hoang : 1945 Patient has been offered a swing bed at [facility]. The patient will be transported by private transportation. No MD to MD report necessary Please call Nursing Report to [phone], ask for demo specialist. Info to accompany patient: Narcotic Prescriptions Copies of Medication Administration Records and IV sheets for past 10 days. Plan: Financial Reporting Manager will be available to the patient and Health Center Assistant-RN and/or Meeting Planner for further assistance. Patient will be discharged to: [place] [id number] Radha Powers, Financial Reporting Manager Mira Black, VAMSI - 08/15/2017 10:05 PM EST [address] Flores to ask if he wanted to hold metoprolol dose. BP 95/58. OK to hold this dose Courtney Brito - 08/15/2017 3:26 PM EST Office of Care Management(OCM)/Financial Reporting Manager(RS)/ D/C Planning re : Patient is medically ready for d/c today. RS has been in contact with [facility] to see if they could offer a bed. [facility] is still reviewing the case and need their MD to review chart prior to accepting or declining. OCM team needs to check in with [facility] tomorrow to check on status. CM Notified RS: Courtney Suazo Pager [phone] Viry Weir MD - 08/15/2017 10:01 AM EST Vascular Surgery Progress Note ID: Gregory Hoang is a 72 y.o. 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 Vac in place. Rehab referrals ongoing. Can ambulate in hallway. Change VAC at bedside today. Naty Colindres RN - 08/14/2017 1:33 PM EST Patient Name: Gregory Hoang Patient Age: 72 y.o. Birthdate: 1945 Admit date: 08/06/2017 Attending Physician: Yonathan Smith MD We want him to go to a place for intensive therapy and not at a senior living where he will be just sitting there and not getting any therapy. . Contacted by direct care RN, who said that patient and would like information about patient's referral to: [facility] PHONE: [phone] FAX: [phone] CM spoke with RS who said that [...] be accepted to acute rehab at [facility] as Dr. Smith had recommended . [...] rehab. Await recommendations from PT. Covering pager #[phone]. 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 Electronics Specialist Kaitlin Saha, RN Pager #[phone] Payam Rosales - 08/13/2017 2:37 PM EST [facility] Encounter Note Patient Name: Gregory Hoang : [id number] MR#: [id number] Admit Date: 08/06/2017 1:41 PM Hospital Day 7 days Narrative: Visited to introduce and assess acceptance of [facility]. Pt was awake, alert, oriented and in chair and family was there. Assessment:Patient coping positively with stresses of illness/hospitalization at this time. Pt says that he is hoping to get better and his family was there. Pt says that he has family care and supportand taking one day at time. Intervention and Outcome: Provided emotional support and encouraging presence. 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 A letter describing our affiliations was reviewed with them and theywere educated about their right to choose where referrals are placed. Patient requests referral to [facility]. PHONE: [phone] FAX: [phone]. And Home NPWT (Negative Pressure Wound Therapy) aka wound vac device made available to pt. Serial # confirmed. Reviewed [facility] Proof of Delivery/Assignment of Benefits Statement(POD/AOB) Form w patient or authorized agent signing on behalf of patient. Copy of POD/AOB provided to pt and other copy faxed to [employer] @ fax# [phone] Expected date of discharge: 08/12/2017. 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 Address: [address] [place] [address] [place] [address] (home) Mobile: Telephone Information: Referring Provider: No [...] SETUP performed by Manny Mcknight MD at [facility] MA[facility] OR ??? PRO CABG, ARTERIAL, SINGLE N/A 07/07/2017 @CABG, USING ARTERIAL GRAFT;SINGLE ARTERIAL GRAFT (WRVU 33.75) performed by Yuan Retana MD at [facility] MA[facility] OR ??? PRO CABG, ARTERY-VEIN, TWO N/A 07/07/2017 @CABG, TWO VENOUS GRAFTS & ARTERIAL GRAFT (WRVU 7.93) performed by Yuan Retana MD at [facility] MA[facility] OR ??? PRO COLONOSCOPY, REMV LESN, SNARE 01/16/2014 COLONOSCOPY, POLYPECTOMY, REMOVAL LESION BY SNARE performed by Nohemi Jaimes MD at [facility] ENDOSCOPY ??? PRO ENDOSCOPY W/VIDEO-ASST VEIN HARVEST, CABG Right 07/07/2017 ENDOSCOPIC HARVEST VEIN(S) FOR CABG (WRVU 0.31) performed by Yuan Retana MD at [facility] OR ??? 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 Heparin gtt continues to run. [...] of : 1945 AGE 72 y.o. Address: [address] [place] [address] [place] [address] (home) Mobile: Telephone Information: Referring Provider: No [...] SETUP performed by Manny Mcknight MD at [facility] OR ??? PRO CABG, ARTERIAL, SINGLE N/A 07/07/2017 @CABG, USING ARTERIAL GRAFT;SINGLE ARTERIAL GRAFT (WRVU 33.75) performed by Yuan Retana MD at [facility] OR ??? PRO CABG, ARTERY-VEIN, TWO N/A 07/07/2017 @CABG, TWO VENOUS GRAFTS & ARTERIAL GRAFT (WRVU 7.93) performed by Yuan Retana MD at [facility] OR ??? PRO COLONOSCOPY, REMV LESN, SNARE 01/16/2014 COLONOSCOPY, POLYPECTOMY, REMOVAL LESION BY SNARE performed by Nohemi Jaimes MD at [facility] ENDOSCOPY ??? PRO ENDOSCOPY W/VIDEO-ASST VEIN HARVEST, CABG Right 07/07/2017 ENDOSCOPIC HARVEST VEIN(S) FOR CABG (WRVU 0.31) performed by Yuan Retana MD at [facility] OR ??? PRO THYROIDECTOMY 03/28/2013 THYROIDECTOMY, TOTAL OR COMPLETE performed by Manny Mcknight MD at [facility] Date/Procedure Meds given/comments No [...] 1 tablet by mouth every evening. 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 Unsuccessful draw attempt, another general duty nurse will come [facility] to collect blood for PTT test. 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 Vascular resident asset protection manager and will forward result to the team prior to rounds. 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 [...] SETUP performed by Manny Mcknight MD at [facility] OR ??? PRO CABG, ARTERIAL, SINGLE N/A 07/07/2017 @CABG, USING ARTERIAL GRAFT;SINGLE ARTERIAL GRAFT (WRVU 33.75) performed by Yuan Retana MD at [facility] MA[facility] OR ??? PRO CABG, ARTERY-VEIN, TWO N/A 07/07/2017 @CABG, TWO VENOUS GRAFTS & ARTERIAL GRAFT (WRVU 7.93) performed by Yuan Retana MD at [facility] MAIN OR ??? PRO COLONOSCOPY, REMV LESN, SNARE 01/16/2014 COLONOSCOPY, POLYPECTOMY, REMOVAL LESION BY SNARE performed by Nohemi Jaimes MD at [facility] ENDOSCOPY ??? PRO ENDOSCOPY W/VIDEO-ASST VEIN HARVEST, CABG Right 07/07/2017 ENDOSCOPIC HARVEST VEIN(S) FOR CABG (WRVU 0.31) performed by Yuan Retana MD at [facility] MAIN OR ??? PRO THYROIDECTOMY 03/28/2013 THYROIDECTOMY, TOTAL OR COMPLETE performed by Manny Mcknight MD at [facility] MAIN OR Functional Status/Social Hx: Quit [...] left blue toes with CTA showing R ASSET PROTECTION MANAGER pseudoaneurysm (now thrombosed) and occluded ATs [...] 2.5x80 5. Completion RLE angiogram 6. L ASSET PROTECTION MANAGER angiogram 7. 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 - L ASSET PROTECTION MANAGER angriogram demonstrated: High femoral bifurcation over the proximal half of the femoral head. L ASSET PROTECTION MANAGER access in the distal L ASSET PROTECTION MANAGER. - Closure device: Mynx Technical Procedure: [...] for a 45cm 5F Destination. V18 and [place] and QuickCross catheters were used to select [...] 5F. A stationed picture of the L ASSET PROTECTION MANAGER was performed as the patient was noted to have a very high bifurcation. Access appeared in the distal R ASSET PROTECTION MANAGER. Closure and sheath removal was performed [...] PM EST 1440 report called to 5 [place] nurse Tessa AGUSTIN documented in this encounter [...] with pt and pt's spouse. Discharge to [facility]. Goal: Individualization & Mutuality Outcome: Outcome [...] sit/sit to supine -- Bed Mobility Goal, [place] Level independent -- Bed Mobility Goal, Date [...] days -- Transfer Training Goal, Activity Type xyt-za-jvbgb/qrddj-jq-udi -- Transfer Train Goal, [place] Level conditional independence -- Transfer Train Goal, [...] call cabello within reach, Hourly rounding by RN/BRAZING MACHINE FEEDER. Bed alarm / Chair alarm. Patient-specific fall [...] Operative Note Patient Name: Gregory Hoang : [id number] MR#: [id number] Case Date: 08/09/2017 Surgeon: Surgeon(s) and Role: [...] 2.5x80 5. Completion RLE angiogram 6. L ASSET PROTECTION MANAGER angiogram 7. Mynx closure Precautions/Restrictions: fall, [...] other (see comments) (or swing bed) Pager: [phone] BASSAM ELIAS, PT 08/14/2017 Inpatient Physical Therapy [...] to Achieve by discharge Gait Training Goal, [place] Level conditional independence;set up required Gait Training [...] these facilities over the weekend except for [facility]. CM spoke with [facility] CM Drea Sandhu, VAMSI who said that they do not anticipate any beds over the weekend. Reviewed with patient/ that they need to be aware that patient will need to take the first bed offered at the facilities that they make referrals to. Their choices are: 1- [facility] PHONE: [phone] FAX: [phone] 2- [facility] ([facility]) [address] [place] [address] 3- [facility]) [address] [place] [address] I have discussed Medicare/Private Insurance [...] RS/CM on Wednesday to follow-up. Covering pager #[phone] for today. Plan of Care - Henrique [...] with additional findings of pseudoaneurysm on R ASSET PROTECTION MANAGER and bilateral anterior tibial artery occlusions. [...] an outpatient once discharged. Have patient call [phone] to set up an appointment. Follow-up: Dermatology will sign-off for now. Please do not hesitate to contact us if you have any questions orconcerns. Impression and Recommendations discussed with primary team on 08/13/2017. Karo Henderson MD Resident in Dermatology Section of Dermatology, Department of Surgery [facility] Pager [phone] Patient seen and evaluated with staff Patient Relations Manager: Halima Cordero MD Section of Dermatology [facility] Level of Resident Supervision: Direct [...] 2.5x80 5. Completion RLE angiogram 6. L ASSET PROTECTION MANAGER angiogram 7. Mynx closure Active Non-Hospital [...] home with home health ([facility] PT[facility]) Pager: [phone] YASIR TELLO OT 08/12/2017 Occupational Therapy Rehabilitation [...] 2.5x80 5. Completion RLE angiogram 6. L ASSET PROTECTION MANAGER angiogram 7. Mynx closure Past Medical [...] with 24/7 assistance and maximal services) Pager: [phone] NICHOLAS MORA, PT 08/12/2017 Physical Therapy Rehabilitation [...] sit/sit to supine -- Bed Mobility Goal, [place] Level independent -- Bed Mobility Goal, Outcome Achieved -- goal ongoing Goal: Gait Training Goal Stand Alone Therapy Goal Outcome: Ongoing (Interventions Implemented as Appropriate) 08/11/17 1310 08/12/17 1510 Gait Training Goal Gait Training Goal, Date Established 08/11/17 -- Gait Training Goal, Time to Achieve 5 - 7 days -- Gait Training Goal, [place] Level conditional independence -- Gait Training Goal, [...] days -- Transfer Training Goal, Activity Type lll-gw-swgqe/kzyvf-fj-oid -- Transfer Train Goal, [place] Level conditional independence -- Transfer Training Goal, [...] Operative Note Patient Name: Gregory Hoang : [id number] MR#: [id number] Case Date: 08/11/2017 Surgeon: Surgeon(s) and Role: [...] 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 Completion RLE angiogram 6. L ASSET PROTECTION MANAGER angiogram 7. Mynx closure He is [...] Anticipated Discharge Disposition: inpatient rehabilitation facility Pager: [phone] LAWRENCE GONZALEZ, PT 08/11/2017 Physical Therapy Rehabilitation [...] to sit/sit to supine Bed Mobility Goal, [place] Level independent Goal: Gait Training Goal Stand Alone Therapy Goal Outcome: Ongoing (Interventions Implemented as Appropriate) 08/11/17 1310 Gait Training Goal Gait Training Goal, Date Established 08/11/17 Gait Training Goal, Time to Achieve 5 - 7 days Gait Training Goal, [place] Level conditional independence Gait Training Goal, Assist [...] 7 days Transfer Training Goal, Activity Type ziz-xx-hxsxo/pwywp-uy-yiu Transfer Train Goal, [place] Level conditional independence Plan of [facility] Annetta [place] RN - 08/11/2017 [...] call cabello within reach, Hourly rounding by RN/BRAZING MACHINE FEEDER. Bed alarm / Chair alarm. ? Patient-specific [...] Care Planning: on file Kisha Hoang [facility] [phone] Current Coping/Education/Information Needs: pt and spouse state [...] Health/Prescription Coverage: Primary Insurance: MEDICARE Secondary Insurance: [employer] [facility] Prescription Coverage: See above Preferred Pharmacy: [facility] [address] Other: N/A Primary Care Provider: Lovely Vicente MD [phone] Patient/Caregiver Goals of Treatment: Patient plans to [...] of care planning. Kaitlin Saha RN Pager: [phone] Plan of Care - Melba Jaramillo RN [...] Overview Goal: Plan of Care Review 08/08/17 1464 Coping/Psychosocial Plan Of Care Reviewed With patient [...] call cabello within reach, Hourly rounding by RN/BRAZING MACHINE FEEDER. Bed alarm / Chair alarm. Patient-specific fall [...] at bedside and MD TEAM Carrying pager [phone] contacted (via Radio page) and notified of [...] MD [facility] ER CARDIOLOGY [place], [place] [address] (Wo rk) 06/10/2022 Office Visit Dermatology Laura Scherer MD [facility] DR TEJA GR-DERMAT OLOGY [place], [place] [address] (Wo rk) documented as [...] Signature POC Glucose 160 65 - 199 [facility] mg/dL [facility] Comment: Supplemental ranges: <140 mg/dL before meals <180 mg/dL all other times of the day Specimen Anatomical Collection Method Collection Time Receive d Time (Source) Location / / Volume Laterality Blood specimen 08/16/2017 7:28 AM 018 7:28 (specimen) EST AM EST Yonathan Smith MD POINT OF CARE TEST ORDERABLE S Performing Organization Address City/State/[place] [address] (ABNORMAL) Differential, Automated (08/16/2017 5:08 AM EST) Patholo gist Method Time Signature Neutrophils % 73.9 % [facility] Neutr Abs (ANC) 5.37 1.70 - [facility] 6.10 [facility] x10(3)/[facility] LABORATORY Lymphocytes % 10.1 % [facility] Lymphocytes Abs 0.7 (L) 0.9 - 3.2 [facility] x10(3)/[facility] LABORATORY Monocytes % 10.1 % [facility] Monocyte Abs 0.7 0.3 - 0.9 [facility] x10(3)/[facility] LABORATORY Eosinophils % 5.1 % [facility] Eosinophils Abs 0.4 0.0 - 0.4 [facility] x10(3)/[facility] LABORATORY Basophils % 0.4 % [facility] Basophils Abs 0.0 0.0 - 0.1 [facility] x10(3)/[facility] LABORATORY Immature Gran % 0.40 [...] Melisa Gran Abs 0.03 0.00 - 0.04 x10(3)/[facility] MAR Y [facility]ORATORY Specimen Anatomical Collection Method Collection Time Receive d Time (Source) Location / / Volume Laterality Blood specimen 08/16/2017 5:08 AM 018 5:20 (specimen) EST AM EST Resulting Agency Comment Spec In Lab Yonathan Smith MD HEMATOLOGY ORDERABLES Performing Organization Address City/State/[place] [address] (ABNORMAL) Hemogram (08/16/2017 5:08 AM EST) Analysis Performed At Patho logist Time Signature WBC 7.3 4.0 - 9.5 [facility] x10(3)/[facility] LABORATORY RBC 3.36 (L) 4.58 - [facility] 5.54 [facility] x10(6)/[facility] LABORATORY Hemoglobin 9.7 (L) 13.7 - [facility] 16.5 gm/dL [facility] Hematocrit 30.3 (L) 40.5 - [place] [place] 48.5 % [facility] MCV 90.2 82.9 - [facility]1 [facility] LAB[facility] MCH 28.9 27.5 - [place] 32.[address] [facility] MCHC 32.0 32.0 - [place] 35.7 gm/dL [facility] Platelets 282 145 - 357 [facility] x10(3)/[facility] LABORATORY RDWSD 53.9 (H) 36.0 - [facility].0 [facility] RDWCV 16.5 (H) 11.4 - [facility] 13.8 % [facility] MPV 9.0 7.6 - 12.9 [facility] nRBC % Auto 0.0 % [facility] nRBC Abs Auto 0.000 0.000 - [facility] 0.000 [facility] x10(3)/[facility] LABORATORY Specimen Anatomical Collection Method Collection Time Receive d Time (Source) Location / / Volume Laterality Blood specimen 08/16/2017 5:08 AM 018 5:20 (specimen) EST AM EST Resulting Agency Comment Spec In Lab Yonathan Smith MD HEMATOLOGY ORDERABLES Performing Organization Address City/State/[place] [address] (ABNORMAL) Basic Metabolic Panel (non-fasting) (08/16/2017 5:08 AM EST) athologist Signature Glucose Lvl 141 65 - 199 [facility] mg/dL [facility] Comment: Diabetes: >=200 mg/dL plus symp toms BUN 29 (H) 10 - 20 mg/dL [facility] Creatinine 1.25 0.80 - 1.50 mg/dL [facility] [...] estions. Chloride 99 98 - 107 mmol/L [facility] CO2 28 22 - 31 mmol/L [facility] Anion Gap 13 5 - 15 mmol/L [facility] Calcium 8.7 8.5 - 10.5 mg/dL [facility] Estimated GFR 57 (L) >=60 [facility] LABORATORY Comment: The reported eGFR should be multiplied b y 1.2 for patients. The MDRD is not an appropriate measure o f renal function for patients with body mass extremes or in patients with acute kidney failure. [email or web address] Specimen Anatomical Collection Method Collection Time Receive d Time (Source) Location / / Volume Laterality Blood specimen 08/16/2017 5:08 AM 018 5:20 (specimen) EST AM EST Resulting Agency Comment Spec In Lab Yonathan Smith MD CHEMISTRY ORDERABLES Performing Organization Address City/State/ZIP Code Phon e Number [place] [phone]P[address] LAB[address]ATORY [address] (ABNORMAL) Prothrombin Time (08/16/2017 5:08 AM EST) athologist Signature PT 25.2 (H) 11.8 - 14.0 [facility] LABORATORY INR 2.3 (H) 0.9 - 1.1 [facility] [...] Smith MD HEMATOLOGY ORDERABLES Performing Organization Address City/[facility]/ZIP Code Phon e Number [address] POCT Glucose (08/16/2017 4:09 AM EST) athologist Signature POC Glucose 147 65 - 199 [place] mg/dL [facility] LABORATORY Comment: Supplemental ranges: <140 mg/dL before meals <180 mg/dL all other times of the day Specimen Anatomical Collection Method Collection Time Receive d Time (Source) Location / / Volume Laterality Blood specimen 08/16/2017 4:09 AM 018 4:09 (specimen) EST AM EST Yonathan Smith MD POINT OF CARE TEST ORDERABLE S Performing Organization Address City/[facility]/ZIP Code Phon e Number [address] POCT Glucose (08/15/2017 11:56 PM EST) athologist Signature POC Glucose 176 65 - 199 [place] mg/dL [facility] LABORATORY Comment: Supplemental ranges: <140 mg/dL before meals <180 mg/dL all other times of the day Specimen Anatomical Collection Method Collection Time Receive d Time (Source) Location / / Volume Laterality Blood specimen 08/15/2017 11:56 8 (specimen) PM EST 11:56 PM EST Yonathan Smith MD POINT OF CARE TEST ORDERABLE S Performing Organization Address City/[facility]/ZIP Code Phon e Number [address] POCT Glucose (08/15/2017 8:05 PM EST) athologist Signature POC Glucose 136 65 - 199 [facility] SU mg/dL [facility] LABORATORY Comment: Supplemental ranges: <140 mg/dL before meals <180 mg/dL all other times of the day Specimen Anatomical Collection Method Collection Time Receive d Time (Source) Location / / Volume Laterality Blood specimen 08/15/2017 8:05 PM 018 8:05 (specimen) EST PM EST Yonathan Smith MD POINT OF CARE TEST ORDERABLE S Performing Organization Address City/State/[place] [address] (ABNORMAL) POCT Glucose (08/15/2017 4:50 PM EST) athologist Signature POC Glucose 232 (H) 65 - 199 [place] mg/dL [facility] LABORATORY Comment: Supplemental ranges: <140 mg/dL before meals <180 mg/dL all other times of the day Specimen Anatomical Collection Method Collection Time Receive d Time (Source) Location / / Volume Laterality Blood specimen 08/15/2017 4:50 PM 018 4:50 (specimen) EST PM EST Yonathan Smith MD POINT OF CARE TEST ORDERABLE S Performing Organization Address City/State/[place] [address] POCT Glucose (08/15/2017 12:04 PM EST) athologist Signature POC Glucose 135 65 - 199 [place] mg/dL [facility] LABORATORY Comment: Supplemental ranges: <140 mg/dL before meals <180 mg/dL all other times of the day Specimen Anatomical Collection Method Collection Time Receive d Time (Source) Location / / Volume Laterality Blood specimen 08/15/2017 12:04 8 (specimen) PM EST 12:04 PM EST Yonathan Smith MD POINT OF CARE TEST ORDERABLE S Performing Organization Address City/State/[place] [address] POCT Glucose (08/15/2017 7:36 AM EST) athologist Signature POC Glucose 124 65 - 199 [place] mg/dL [facility] LABORATORY Comment: Supplemental ranges: <140 mg/dL before meals <180 mg/dL all other times of the day Specimen Anatomical Collection Method Collection Time Receive d Time (Source) Location / / Volume Laterality Blood specimen 08/15/2017 7:36 AM 018 7:36 (specimen) EST AM EST Yonathan Smith MD POINT OF CARE TEST ORDERABLE S Performing Organization Address City/State/ZIP Code Phon e Number [place] [phone] [facility] LABORATORY Drive (ABNORMAL) Differential, Automated (08/15/2017 6:22 AM EST) [facility] Method Time Signature Neutrophils % 76.1 % [facility] LABORATORY Neutr Abs (ANC) 6.62 (H) 1.70 - [facility] 6.10 [facility] x10(3)/[facility] L LABORATORY Lymphocytes % 9.3 % [facility] LABORATORY Lymphocytes Abs 0.8 (L) 0.9 - 3.2 [facility] x10(3)/[facility] LABORATORY Monocytes % 9.4 % [facility] LABORATORY Monocyte Abs 0.8 0.3 - 0.9 [facility] x10(3)/[facility] LABORATORY Eosinophils % 4.0 % [facility] LABORATORY Eosinophils Abs 0.4 0.0 - 0.4 [facility] x10(3)/[facility] LABORATORY Basophils % 0.6 % [facility] LABORATORY Basophils Abs 0.0 0.0 - 0.1 [facility] x10(3)/[facility] LABORATORY Immature Gran % 0.60 % [...] Organization Address City/State/[place] [address] (ABNORMAL) Hemogram (08/15/2017 6:22 AM EST) Analysis Performed At Patho logist Time Signature WBC 8.7 4.0 - 9.5 [facility] x10(3)/[facility] LABORATORY RBC 3.21 (L) 4.58 - [place] 5.54 [facility] x10(6)/[facility] LABORATORY Hemoglobin 9.1 (L) 13.7 - [facility]m/dL [facility] LABORATORY Hematocrit 29.0 (L) 40.5 - [facility] % [facility] LABORATORY MCV 90.3 82.9 - [facility] 93.1 [facility] LABORATORY MCH 28.3 27.5 - [facility] [facility] LABORATORY MCHC 31.4 (L) 32.0 - [facility] 35.7 gm/dL [facility] LABORATORY Platelets 254 145 - 357 [facility] x10(3)/[facility] LABORATORY RDWSD 53.9 (H) 36.0 - [facility] 45.0 [facility] LABORATORY RDWCV 16.3 (H) 11.4 - [facility].8 % [facility] LABORATORY MPV 8.8 7.6 - 12.9 [facility] LABORATORY nRBC % Auto 0.0 % [facility] LABORATORY nRBC Abs Auto 0.000 0.000 - [facility] 0.000 [facility] x10(3)/[facility] LABORATORY Specimen Anatomical Collection Method Collection Time Receive d Time (Source) Location / / Volume Laterality Blood specimen 08/15/2017 6:22 AM 018 6:33 (specimen) EST AM EST Resulting Agency Comment Spec In Lab Yonathan Smith MD HEMATOLOGY ORDERABLES Performing Organization Address City/State/[place] [address] (ABNORMAL) Basic Metabolic Panel (non-fasting) (08/15/2017 6:22 AM EST) P athologist Signature Glucose Lvl 118 65 - 199 [facility] mg/dL [facility] LABORATORY Comment: Diabetes: >=200 mg/dL plus symp toms BUN 27 (H) 10 - 20 mg/dL [facility] LABORATORY Creatinine 1.12 0.80 [...] [facility] LABORATORY Calcium 8.8 8.5 - 10.5 mg/dL [facility] LABORATORY Estimated GFR >60 >=60 [facility] LABORATORY Comment: The reported eGFR should be multiplied b y 1.2 for patients. The MDRD is not an appropriate measure o f renal function for patients with body mass extremes or in patients with acute kidney failure. [email or web address] Specimen Anatomical Collection Method Collection Time Receive d Time (Source) Location / / Volume Laterality Blood specimen 08/15/2017 6:22 AM 018 6:33 (specimen) EST AM EST Resulting Agency Comment Spec In Lab Yonathan Smith MD CHEMISTRY ORDERABLES Performing Organization Address City/State/[place] [address] (ABNORMAL) Prothrombin Time (08/15/2017 6:22 AM EST) athologist Signature PT 21.9 (H) 11.8 - 14.0 [facility] LABORATORY INR 1.9 (H) 0.9 - 1.1 [facility] [...] Smith MD HEMATOLOGY ORDERABLES Performing Organization Address City/[facility]/ZIP Code Phon e Number [address] POCT Glucose (08/15/2017 4:33 AM EST) athologist Signature POC Glucose 164 65 - 199 [facility] mg[facility]dL [facility] LABORATORY Comment: Supplemental ranges: <140 mg/dL before meals <180 mg/dL all other times of the day Specimen Anatomical Collection Method Collection Time Receive d Time (Source) Location / / Volume Laterality Blood specimen 08/15/2017 4:33 AM 018 4:33 (specimen) EST AM EST Yonathan Smtih MD POINT OF CARE TEST ORDERABLE S Performing Organization Address City/[facility]/ZIP Code Phon e Number [address] POCT Glucose (08/15/2017 12:12 AM EST) athologist Signature POC Glucose 89 65 - 199 [facility] LABORATORY Comment: Supplemental ranges: <140 mg/dL before meals <180 mg/dL all other times of the day Specimen Anatomical Collection Method Collection Time Receive d Time (Source) Location / / Volume Laterality Blood specimen 08/15/2017 12:12 8 (specimen) AM EST 12:12 AM EST Yonathan Smith MD POINT OF CARE TEST ORDERABLE S Performing Organization Address City/[facility]/[place] [address] (ABNORMAL) POCT Glucose (08/14/2017 8:07 PM EST) athologist Signature POC Glucose 204 (H) 65 - 199 [place] mg/dL [facility] LABORATORY Comment: Supplemental ranges: <140 mg/dL before meals <180 mg/dL all other times of the day Specimen Anatomical Collection Method Collection Time Receive d Time (Source) Location / / Volume Laterality Blood specimen 08/14/2017 8:07 PM 018 8:07 (specimen) EST PM EST Yonathan Smith MD POINT OF CARE TEST ORDERABLE S Performing Organization Address City/State/[place] [address] POCT Glucose (08/14/2017 5:11 PM EST) athologist Signature POC Glucose 174 65 - 199 [facility] mg[facility]dL [facility] LABORATORY Comment: Supplemental ranges: <140 mg/dL before meals <180 mg/dL all other times of the day Specimen Anatomical Collection Method Collection Time Receive d Time (Source) Location / / Volume Laterality Blood specimen 08/14/2017 5:11 PM 018 5:11 (specimen) EST PM EST Yonathan Smith MD POINT OF CARE TEST ORDERABLE S Performing Organization Address City/State/[place] [address] POCT Glucose (08/14/2017 12:10 PM EST) athologist Signature POC Glucose 141 65 - 199 [place] mg/dL [facility] LABORATORY Comment: Supplemental ranges: <140 mg/dL before meals <180 mg/dL all other times of the day Specimen Anatomical Collection Method Collection Time Receive d Time (Source) Location / / Volume Laterality Blood specimen 08/14/2017 12:10 8 (specimen) PM EST 12:10 PM EST Yonathan Smith MD POINT OF CARE TEST ORDERABLE S Performing Organization Address City/State/ZIP Code Phon e Number [address] POCT Glucose (08/14/2017 8:07 AM EST) P athologist Signature POC Glucose 158 65 - 199 [facility] mg/dL [facility] LABORATORY Comment: Supplemental ranges: <140 mg/dL before meals <180 mg/dL all other times of the day Specimen Anatomical Collection Method Collection Time Receive d Time (Source) Location / / Volume Laterality Blood specimen 08/14/2017 8:07 AM 018 8:07 (specimen) EST AM EST Yonathan Smith MD POINT OF CARE TEST ORDERABLE S Performing Organization Address City/State/[place] [address] (ABNORMAL) Differential, Automated (08/14/2017 4:52 AM EST) Patholo gist Method Time Signature Neutrophils % 78.6 % [facility] LABORATORY Neutr Abs (ANC) 7.70 (H) 1.70 - [facility] 6.10 [facility] x10(3)/[facility] LABORATORY Lymphocytes % 7.8 % [facility] LABORATORY Lymphocytes Abs 0.8 (L) 0.9 - 3.2 [facility] x10(3)/[facility] LABORATORY Monocytes % 8.8 % [facility] LABORATORY Monocyte Abs 0.9 0.3 - 0.9 [facility] x10(3)/[facility] LABORATORY Eosinophils % 4.0 % [facility] LABORATORY Eosinophils Abs 0.4 0.0 - 0.4 [facility] x10(3)/[facility] LABORATORY Basophils % 0.5 % [facility] LABORATORY Basophils Abs 0.0 0.0 - 0.1 [facility] x10(3)/[facility] LABORATORY Immature Gran % 0.30 % [...] Melisa Gran Abs 0.03 0.00 - 0.04 x10(3)/[facility] MAR Y [facility] LABORATORY Specimen Anatomical Collection Method Collection Time Receive d Time (Source) Location / / Volume Laterality Blood specimen 08/14/2017 4:52 AM 018 5:08 (specimen) EST AM EST Resulting Agency Comment Spec In Lab Yonathan Smith MD HEMATOLOGY ORDERABLES Performing Organization Address City/State/[place] [address] (ABNORMAL) Hemogram (08/14/2017 4:52 AM EST) Analysis Performed At Patho logist Time Signature WBC 9.8 (H) 4.0 - 9.5 [facility] x[facility](3[facility] LABORATORY RBC 3.32 (L) 4.58 - [facility] 5.54 [facility] x10(6)/[facility] LABORATORY Hemoglobin 9.5 (L) 13.7 - [facility] 16.5 gm/dL [facility] LABORATORY Hematocrit 30.3 (L) 40.5 - [facility] 48.5 % [facility] LABORATORY MCV 91.3 82.9 - [facility]1 [facility] LABORATORY MCH 28.6 27.5 - [facility] [address] [facility] LABORATORY MCHC 31.4 (L) 32.0 [facility]dL [facility] LABORATORY Platelets 263 145 - 357 [facility] x10(3)/[facility] RDWSD 54.8 (H) 36.0 - [facility]0 [facility] LABORATORY RDWCV 16.5 (H) 11.4 - [facility] SU 13.8 % [facility] LABORATORY MPV 9.1 7.6 - 12.9 [facility]ORY nRBC % Auto 0.0 % [facility] LABORATORY nRBC Abs Auto 0.000 0.000 - [facility] SU 0.000 [facility] x10(3)/[facility] LABORATORY Specimen Anatomical Collection Method Collection Time Receive d Time (Source) Location / / Volume Laterality Blood specimen 08/14/2017 4:52 AM 018 5:08 (specimen) EST AM EST Resulting Agency Comment Spec In Lab Yonathan Smith MD HEMATOLOGY ORDERABLES Performing Organization Address City/[facility]/ZIP Code Phon e Number [place] [phone] HOSPITAL LABORATORY Drive (ABNORMAL) Prothrombin Time (08/14/2017 4:52 AM EST) athologist Signature PT 18.8 (H) 11.8 - 14.0 [facility] LABORATORY INR 1.6 (H) 0.9 - [...] Smith MD HEMATOLOGY ORDERABLES Performing Organization Address City/[facility]/[place] [address] (ABNORMAL) Basic Metabolic Panel (non-fasting) (08/14/2017 4:52 AM EST) athologist Signature Glucose Lvl 135 65 - 199 [facility] mg/dL [facility] LABORATORY Comment: Diabetes: >=200 mg/dL plus symp toms BUN 25 (H) 10 - 20 mg/dL [facility] LABORATORY Creatinine 1.36 0.80 - 1.50 mg/dL [facility] LABORATORY [...] HOSPITAL LABORATORY Estimated GFR 52 (L) >=60 [facility] LABORATORY Comment: The reported eGFR should be multiplied b y 1.2 for patients. The MDRD is not an appropriate measure o f renal function for patients with body mass extremes or in patients with acute kidney failure. [email or web address] [email or web address] Specimen Anatomical Collection Method Collection Time Receive d Time (Source) Location / / Volume Laterality Blood specimen 08/14/2017 4:52 AM 018 5:08 (specimen) EST AM EST Resulting Agency Comment Spec In Lab Yonathan Smith MD CHEMISTRY ORDERABLES Performing Organization Address City/[facility]/ZIP Code Phon e Number [address] POCT Glucose (08/14/2017 3:56 AM EST) athologist Signature POC Glucose 135 65 - 199 [facility] mg/dL [facility] LABORATORY Comment: Supplemental ranges: <140 mg/dL before meals <180 mg/dL all other times of the day Specimen Anatomical Collection Method Collection Time Receive d Time (Source) Location / / Volume Laterality Blood specimen 08/14/2017 3:56 AM 018 3:56 (specimen) EST AM EST Yonathan Smith MD POINT OF CARE TEST ORDERABLE S Performing Organization Address City/[facility]/ZIP [facility] Phon e Number [address] POCT Glucose (08/13/2017 11:13 PM EST) athologist Signature POC Glucose 118 65 - 199 [facility] LABORATORY Comment: Supplemental ranges: <140 mg/dL before meals <180 mg/dL all other times of the day Specimen Anatomical Collection Method Collection Time Receive d Time (Source) Location / / Volume Laterality Blood specimen 08/13/2017 11:13 8 (specimen) PM EST 11:13 PM EST Yonathan Smith MD POINT OF CARE TEST ORDERABLE S Performing Organization Address City/[facility]/[place] [address] (ABNORMAL) POCT Glucose (08/13/2017 8:08 PM EST) athologist Signature POC Glucose 204 (H) 65 - 199 [place] mg/dL [facility] LABORATORY Comment: Supplemental ranges: <140 mg/dL before meals <180 mg/dL all other times of the day Specimen Anatomical Collection Method Collection Time Receive d Time (Source) Location / / Volume Laterality Blood specimen 08/13/2017 8:08 PM 018 8:08 (specimen) EST PM EST Yonathan Smith MD POINT OF CARE TEST ORDERABLE S Performing Organization Address City/State/[place] [address] POCT Glucose (08/13/2017 4:02 PM EST) athologist Signature POC Glucose 145 65 - 199 [place] mg/dL [facility] LABORATORY Comment: Supplemental ranges: <140 mg/dL before meals <180 mg/dL all other times of the day Specimen Anatomical Collection Method Collection Time Receive d Time (Source) Location / / Volume Laterality Blood specimen 08/13/2017 4:02 PM 018 4:02 (specimen) EST PM EST Yonathan Smith MD POINT OF CARE TEST ORDERABLE S Performing Organization Address City/State/[place] [address] POCT Glucose (08/13/2017 11:31 AM EST) athologist Signature POC Glucose 179 65 - 199 [place] mg/dL [facility] LABORATORY Comment: Supplemental ranges: <140 mg/dL before meals <180 mg/dL all other times of the day Specimen Anatomical Collection Method Collection Time Receive d Time (Source) Location / / Volume Laterality Blood specimen 08/13/2017 11:31 8 (specimen) AM EST 11:31 AM EST Yonathan Smith MD POINT OF CARE TEST ORDERABLE S Performing Organization Address City/State/ZIP Code Phon e Number [address] (ABNORMAL) POCT Glucose (08/13/2017 10:16 AM EST) P athologist Signature POC Glucose 211 (H) 65 - 199 [facility] mg[facility]dL [facility] LABORATORY Comment: Supplemental ranges: <140 mg/dL before meals <180 mg/dL all other times of the day Specimen Anatomical Collection Method Collection Time Receive d Time (Source) Location / / Volume Laterality Blood specimen 08/13/2017 10:16 8 (specimen) AM EST 10:16 AM EST Yonathan Smith MD POINT OF CARE TEST ORDERABLE S Performing Organization Address City/State/[place] [address] JULIAN, legs, multiple levels (08/13/2017 7:42 AM EST) Component Value Ref Test Analysis Performed At Patholo gist Range Method Time Signature VB Text Department: Vascular Surgery Lab VASCUBASE Report Patient: [id number] (GREGORY HOANG) CPT: 07046 ICD10: I99.8 Referring Physician: YONATHAN SMITH ?? Indications: s/p R 1,2,3 toe amps with red left foot, need n ew baseline Diabetes mellitus: yes ICD10 Diagnosis Code: I99.8 Findings: Right ?Pressure (mm Hg) ?? JULIAN ??Waveform ?TBI ?? Brachial Artery ?138 ? Dorsalis Pedis (Ankle) Arter y ?132 ? 0.94 ??[place]- Biphasic ? Posterior Tibial (Ankle) Art anila ??154 ? 1.10 ??[place]-Biphasic ? Fourth Toe ? 67 ? 0.48 [...] Signature POC Glucose 156 65 - 199 [facility] mg/dL [facility] LABORATORY Comment: Supplemental ranges: <140 mg/dL before meals <180 mg/dL all other times of the day Specimen Anatomical Collection Method Collection Time Receive d Time (Source) Location / / Volume Laterality Blood specimen 08/13/2017 7:33 AM 018 7:33 (specimen) EST AM EST Yonathan Smith MD POINT OF CARE TEST ORDERABLE S Performing Organization Address City/State/[place] [address] (ABNORMAL) Differential, Automated (08/13/2017 5:33 AM EST) Patholo gist Method Time Signature Neutrophils % 77.8 % [facility] LABORATORY Neutr Abs (ANC) 7.83 (H) 1.70 - [facility] 6.10 [facility] x10(3)/[facility] L LABORATORY Lymphocytes % 8.4 % [facility] LABORATORY Lymphocytes Abs 0.8 (L) 0.9 - 3.2 [facility] x10(3)/[facility] LABORATORY Monocytes % 8.3 % [facility] LABORATORY Monocyte Abs 0.8 0.3 - 0.9 [facility] x10(3)/[facility] LABORATORY Eosinophils % 4.6 % [facility] LABORATORY Eosinophils Abs 0.5 (H) 0.0 - 0.4 [facility] x10(3)/[facility] LABORATORY Basophils % 0.5 % [facility] LABORATORY Basophils Abs 0.0 0.0 - 0.1 [facility] x10(3)/[facility] LABORATORY Immature Gran % 0.40 % [...] Melisa Gran Abs 0.04 0.00 - 0.04 x10(3)/[facility] MAR Y [facility] LABORATORY Specimen Anatomical Collection Method Collection Time Receive d Time (Source) Location / / Volume Laterality Blood specimen 08/13/2017 5:33 AM 018 6:04 (specimen) EST AM EST Resulting Agency Comment Spec In Lab Yonathan Smith MD HEMATOLOGY ORDERABLES Performing Organization Address City/State/[place] [address] (ABNORMAL) Hemogram (08/13/2017 5:33 AM EST) Analysis Performed At Patho logist Time Signature WBC 10.1 (H) 4.0 - 9.5 [facility] x10(3)/[facility] LABORATORY RBC 3.21 (L) 4.58 - [facility] 5.54 [facility] x10(6)/[facility] LABORATORY Hemoglobin 9.2 (L) 13.7 - [facility] 16.5 gm/dL [facility] LABORATORY Hematocrit 29.6 (L) 40.5 - [facility] 48.5 % [facility] LABORATORY MCV 92.2 82.9 - [facility] 93.1 [facility] LABORATORY MCH 28.7 27.5 - [facility] 32.[address] [facility] LABORATORY MCHC 31.1 (L) 32.0 - [facility] 35.7 gm/dL [facility] LABORATORY Platelets 263 145 - 357 [facility] x10(3)/[facility] LABORATORY RDWSD 54.8 (H) 36.0 - [facility] 45.0 [facility] LABORATORY RDWCV 16.4 (H) 11.4 - [facility] SU 13.8 % [facility] LABORATORY MPV 9.2 7.6 - 12.9 [facility] LABORATORY nRBC % Auto 0.0 % [facility] LABORATORY nRBC Abs Auto 0.000 0.000 - [facility] 0.000 [facility] x10(3)/[facility] LABORATORY Specimen Anatomical Collection Method Collection Time Receive d Time (Source) Location / / Volume Laterality Blood specimen 08/13/2017 5:33 AM 018 6:04 (specimen) EST AM EST Resulting Agency Comment Spec In Lab Yonathan Smith MD HEMATOLOGY ORDERABLES Performing Organization Address City/State/[place] [address] (ABNORMAL) Prothrombin Time (08/13/2017 5:33 AM EST) P athologist Signature PT 17.3 (H) 11.8 - 14.0 [facility] LABORATORY INR 1.4 (H) 0.9 - 1.1 [facility] [...] Organization Address City/State/[place] [address] (ABNORMAL) Basic Metabolic Panel (non-fasting) (08/13/2017 5:33 AM EST) athologist Signature Glucose Lvl 126 65 - 199 [facility] mg/dL [facility] LABORATORY Comment: Diabetes: >=200 mg/dL plus symp toms BUN 18 10 - 20 mg/dL [facility] LABORATORY Creatinine 1.16 0.80 - 1.50 mg/dL [facility] LABORATORY [...] Anion Gap 12 5 - 15 mmol/L [facility] LABORATORY Calcium 7.9 (L) 8.5 - 10.5 mg/dL [facility] LABORATORY Estimated GFR >60 >=60 [facility] LABORATORY Comment: The reported eGFR should be multiplied b y 1.2 for patients. The MDRD is not an appropriate measure o f renal function for patients with body mass extremes or in patients with acute kidney failure. [email or web address] [email or web address] Specimen Anatomical Collection Method Collection Time Receive d Time (Source) Location / / Volume Laterality Blood specimen 08/13/2017 5:33 AM 018 6:04 (specimen) EST AM EST Resulting Agency Comment Spec In Lab Yonathan Smith MD CHEMISTRY ORDERABLES Performing Organization Address City/[facility]/ZIP Code Phon e Number [address] POCT Glucose (08/13/2017 4:29 AM EST) athologist Signature POC Glucose 111 65 - 199 [facility] mg/dL [facility] LABORATORY Comment: Supplemental ranges: <140 mg/dL before meals <180 mg/dL all other times of the day Specimen Anatomical Collection Method Collection Time Receive d Time (Source) Location / / Volume Laterality Blood specimen 08/13/2017 4:29 AM 018 4:29 (specimen) EST AM EST Yonathan Smith MD POINT OF CARE TEST ORDERABLE S Performing Organization Address City/[facility]/ZIP [facility] Phon e Number [address] POCT Glucose (08/12/2017 11:28 PM EST) athologist Signature POC Glucose 164 65 - 199 [place] [facility] mg/dL [facility] LABORATORY Comment: Supplemental ranges: <140 mg/dL before meals <180 mg/dL all other times of the day Specimen Anatomical Collection Method Collection Time Receive d Time (Source) Location / / Volume Laterality Blood specimen 08/12/2017 11:28 8 (specimen) PM EST 11:28 PM EST Yonathan Smith MD POINT OF CARE TEST ORDERABLE S Performing Organization Address City/[facility]/ZIP Code Phon e Number [address] (ABNORMAL) POCT Glucose (08/12/2017 7:40 PM EST) athologist Signature POC Glucose 209 (H) 65 - 199 [facility] SU mg/dL [facility] LABORATORY Comment: Supplemental ranges: <140 mg/dL before meals <180 mg/dL all other times of the day Specimen Anatomical Collection Method Collection Time Receive d Time (Source) Location / / Volume Laterality Blood specimen 08/12/2017 7:40 PM 018 7:40 (specimen) EST PM EST Yonathan Smith MD POINT OF CARE TEST ORDERABLE S Performing Organization Address City/State/ZIP Code Phon e Number [address] POCT Glucose (08/12/2017 4:24 PM EST) athologist Signature POC Glucose 161 65 - 199 [place] [facility] mg/dL [facility] LABORATORY Comment: Supplemental ranges: <140 mg/dL before meals <180 mg/dL all other times of the day Specimen Anatomical Collection Method Collection Time Receive d Time (Source) Location / / Volume Laterality Blood specimen 08/12/2017 4:24 PM 018 4:24 (specimen) EST PM EST Yonathan Smith MD POINT OF CARE TEST ORDERABLE S Performing Organization Address City/State/ZIP Code Phon e Number [address] POCT Glucose (08/12/2017 12:00 PM EST) athologist Signature POC Glucose 167 65 - 199 [place] [facility] mg/dL [facility] LABORATORY Comment: Supplemental ranges: <140 mg/dL before meals <180 mg/dL all other times of the day Specimen Anatomical Collection Method Collection Time Receive d Time (Source) Location / / Volume Laterality Blood specimen 08/12/2017 12:00 8 (specimen) PM EST 12:00 PM EST Yonathan Smith MD POINT OF CARE TEST ORDERABLE S Performing Organization Address City/State/ZIP Code Phon e Number [address] POCT Glucose (08/12/2017 7:25 AM EST) athologist Signature POC Glucose 152 65 - 199 [place] [facility] mg/dL [facility] LABORATORY Comment: Supplemental ranges: <140 mg/dL before meals <180 mg/dL all other times of the day Specimen Anatomical Collection Method Collection Time Receive d Time (Source) Location / / Volume Laterality Blood specimen 08/12/2017 7:25 AM 018 7:25 (specimen) EST AM EST Yonathan Smith MD POINT OF CARE TEST ORDERABLE S Performing Organization Address City/State/ZIP Code Phon e Number [place] [id number] HOSPITAL LABORATORY Drive (ABNORMAL) Differential, Automated (08/12/2017 6:29 AM EST) [facility] Method Time Signature Neutrophils % 78.7 % [facility] LABORATORY Neutr Abs (ANC) 7.94 (H) 1.70 - [facility] 6.10 [facility] x10(3)/[facility] LABORATORY Lymphocytes % 8.8 % [facility] LABORATORY Lymphocytes Abs 0.9 0.9 - 3.2 [facility] x10(3)/[facility] LABORATORY Monocytes % 7.8 % [facility] LABORATORY Monocyte Abs 0.8 0.3 - 0.9 [facility] x10(3)/[facility] LABORATORY Eosinophils % 3.9 % [facility] LABORATORY Eosinophils Abs 0.4 0.0 - 0.4 [facility] x10(3)/[facility] LABORATORY Basophils % 0.3 % [facility] LABORATORY Basophils Abs 0.0 0.0 - 0.1 [facility] x10(3)/[facility] LABORATORY Immature Gran % 0.50 % [...] Organization Address City/State/ZIP Code Phon e Number [place] [id number] HOSPITAL LABORATORY Drive (ABNORMAL) Hemogram (08/12/2017 6:29 AM EST) Analysis Performed At Patho logist Time Signature WBC 10.1 (H) 4.0 - 9.5 [facility] x10(3)/[facility] LABORATORY RBC 3.02 (L) 4.58 - [place] [facility] 5.54 [facility] x10(6)/[facility] LABORATORY Hemoglobin 8.7 (L) 13.7 - [facility] 16.5 gm/dL [facility] LABORATORY Hematocrit 28.1 (L) 40.5 - [facility] 48.5 % [facility] LABORATORY MCV 93.0 82.9 - [facility] 93.1 [facility] LABORATORY MCH 28.8 27.5 - [facility] 32.[address] [facility] LABORATORY MCHC 31.0 (L) 32.0 - [facility] 35.7 gm/dL [facility] LABORATORY Platelets 223 145 - 357 [facility] x10(3)/[facility] LABORATORY RDWSD 56.1 (H) 36.0 - [facility] 45.0 [facility] LABORATORY RDWCV 16.4 (H) 11.4 - [facility] 13.8 % [facility] LABORATORY MPV 9.0 7.6 - 12.9 [facility] LABORATORY nRBC % Auto 0.0 % [facility] LABORATORY nRBC Abs Auto 0.000 0.000 - [facility] 0.000 [facility] x10(3)/[facility] LABORATORY Specimen Anatomical Collection Method Collection Time Receive d Time (Source) Location / / Volume Laterality Blood specimen 08/12/2017 6:29 AM 018 6:38 (specimen) EST AM EST Resulting Agency Comment Spec In Lab Yonathan Smith MD HEMATOLOGY ORDERABLES Performing Organization Address City/State/ZIP Code [place] [address] (ABNORMAL) Prothrombin Time (08/12/2017 6:29 AM EST) P athologist Signature PT 16.1 (H) 11.8 - 14.0 [facility] LABORATORY INR 1.3 (H) 0.9 - [...] Organization Address City/State/[place] [address] (ABNORMAL) Basic Metabolic Panel (non-fasting) (08/12/2017 6:29 AM EST) P athologist Signature Glucose Lvl 151 65 - 199 [facility] mg/dL [facility] LABORATORY Comment: Diabetes: >=200 mg/dL plus symp toms BUN 18 10 - 20 mg/dL [facility] LABORATORY Creatinine 1.11 0.80 - 1.50 mg/dL [facility] LABORATORY [...] estions. Chloride 99 98 - 107 mmol/L [facility] LABORATORY CO2 28 22 - 31 mmol/L [facility] LABORATORY Anion Gap 11 5 - 15 mmol/L [facility] LABORATORY Calcium 7.9 (L) 8.5 - 10.5 mg/dL [facility] LABORATORY Estimated GFR >60 >=60 [facility] LABORATORY Comment: The reported eGFR should be multiplied b y 1.2 for patients. The MDRD is not an appropriate measure o f renal function for patients with body mass extremes or in patients with acute kidney failure. [email or web address] [email or web address]/DHMCnkf Specimen Anatomical Collection Method Collection Time Receive d Time (Source) Location / / Volume Laterality Blood specimen 08/12/2017 6:29 AM 018 6:38 (specimen) EST AM EST Resulting Agency Comment Spec In Lab Yonathan Smith MD CHEMISTRY ORDERABLES Performing Organization Address City/[facility]/[place] [address] POCT Glucose (08/12/2017 4:08 AM EST) athologist Signature POC Glucose 181 65 - 199 [facility] LABOR[facility]ORY Comment: Supplemental ranges: <140 mg/dL before meals <180 mg/dL all other times of the day Specimen Anatomical Collection Method Collection Time Receive d Time (Source) Location / / Volume Laterality Blood specimen 08/12/2017 4:08 AM 018 4:08 (specimen) EST AM EST Yonathan Smith MD POINT OF CARE TEST ORDERABLE S Performing Organization Address City/[facility]/[place] [address] (ABNORMAL) POCT Glucose (08/12/2017 12:17 AM EST) athologist Signature POC Glucose 221 (H) 65 - 199 [facility] LABORATORY Comment: Supplemental ranges: <140 mg/dL before meals <180 mg/dL all other times of the day Specimen Anatomical Collection Method Collection Time Receive d Time (Source) Location / / Volume Laterality Blood specimen 08/12/2017 12:17 8 (specimen) AM EST 12:17 AM EST Yonathan Smith MD POINT OF CARE TEST ORDERABLE S Performing Organization Address City/[facility]/[place] [address] (ABNORMAL) POCT Glucose (08/11/2017 8:52 PM EST) athologist Signature POC Glucose 221 (H) 65 - 199 [place] [facility] mg/dL [facility] LABORATORY Comment: Supplemental ranges: <140 mg/dL before meals <180 mg/dL all other times of the day Specimen Anatomical Collection Method Collection Time Receive d Time (Source) Location / / Volume Laterality Blood specimen 08/11/2017 8:52 PM 018 8:52 (specimen) EST PM EST Yonathan Smith MD POINT OF CARE TEST ORDERABLE S Performing Organization Address City/State/[place] [address] POCT Glucose (08/11/2017 5:59 PM EST) athologist Signature POC Glucose 169 65 - 199 [facility] SU mg/dL [facility] LABORATORY Comment: Supplemental ranges: <140 mg/dL before meals <180 mg/dL all other times of the day Specimen Anatomical Collection Method Collection Time Receive d Time (Source) Location / / Volume Laterality Blood specimen 08/11/2017 5:59 PM 018 5:59 (specimen) EST PM EST Yonathan Smith MD POINT OF CARE TEST ORDERABLE S Performing Organization Address City/[facility]/[place] [address] (ABNORMAL) POCT Glucose (08/11/2017 4:08 PM EST) athologist Signature POC Glucose 240 (H) 65 - 199 [facility] LABORATORY Comment: Supplemental ranges: <140 mg/dL before meals <180 mg/dL all other times of the day Specimen Anatomical Collection Method Collection Time Receive d Time (Source) Location / / Volume Laterality Blood specimen 08/11/2017 4:08 PM 018 4:08 (specimen) EST PM EST Yonathan Smith MD POINT OF CARE TEST ORDERABLE S Performing Organization Address City/State/[place] [address] POCT Glucose (08/11/2017 12:04 PM EST) athologist Signature POC Glucose 182 65 - 199 [facility] mg/dL [facility] LABORATORY Comment: Supplemental ranges: <140 mg/dL before meals <180 mg/dL all other times of the day Specimen Anatomical Collection Method Collection Time Receive d Time (Source) Location / / Volume Laterality Blood specimen 08/11/2017 12:04 8 (specimen) PM EST 12:04 PM EST Yonathan Smith MD POINT OF CARE TEST ORDERABLE S Performing Organization Address City/State/ZIP Code Phon e Number [address] POCT Glucose (08/11/2017 7:31 AM EST) athologist Signature POC Glucose 156 65 - 199 [facility] mg/dL [facility] LABORATORY Comment: Supplemental ranges: <140 mg/dL before meals <180 mg/dL all other times of the day Specimen Anatomical Collection Method Collection Time Receive d Time (Source) Location / / Volume Laterality Blood specimen 08/11/2017 7:31 AM 018 7:31 (specimen) EST AM EST Yonathan Smith MD POINT OF CARE TEST ORDERABLE S Performing Organization Address City/State/ZIP Code Phon e Number [address] (ABNORMAL) Differential, Automated (08/11/2017 6:16 AM EST) [facility] gist Method Time Signature Neutrophils % 83.7 % [facility] LABORATORY Neutr Abs (ANC) 10.76 (H) 1.70 - [facility] 6.10 [facility] x10(3)/[facility] L LABORATORY Lymphocytes % 6.0 % [facility] LABORATORY Lymphocytes Abs 0.8 (L) 0.9 - 3.2 [facility] x10(3)/[facility] LABORATORY Monocytes % 7.5 % [facility] LABORATORY Monocyte Abs 1.0 (H) 0.3 - 0.9 [facility] x10(3)/[facility] LABORATORY Eosinophils % 2.0 % [facility] LABORATORY Eosinophils Abs 0.3 0.0 - 0.4 [facility] x10(3)/[facility] LABORATORY Basophils % 0.3 % [facility] LABORATORY Basophils Abs 0.0 0.0 - 0.1 [facility] x10(3)/[facility] LABORATORY Immature Gran % 0.50 % [...] Gran Abs 0.06 (H) 0.00 - 0.04 x10(3)/[facility] LABORATORY Specimen Anatomical Collection Method Collection Time Receive d Time (Source) Location / / Volume Laterality Blood specimen 08/11/2017 6:16 AM 018 6:24 (specimen) EST AM EST Resulting Agency Comment Spec In Lab Yonathan Smith MD HEMATOLOGY ORDERABLES Performing Organization Address City/State/[place] [address] (ABNORMAL) Hemogram (08/11/2017 6:16 AM EST) Analysis Performed At Patho logist Time Signature WBC 12.9 (H) 4.0 - 9.5 [facility] x10(3)/[facility] LABORATORY RBC 3.28 (L) 4.58 - [facility] SU 5.54 [facility] x10(6)/[facility] LABORATORY Hemoglobin 9.5 (L) 13.7 - [facility] 16.5 gm/dL [facility] LABORATORY Hematocrit 29.8 (L) 40.5 - [facility] SU 48.5 % [facility] LABORATORY MCV 90.9 82.9 - [facility] 93[facility] [facility] LABORATORY MCH 29.0 27.5 - [place] [facility] 32.[address] [facility] LABORATORY MCHC 31.9 (L) 32.0 - [facility]7 gm/dL [facility] LABORATORY Platelets 236 145 - 357 [facility] x10(3)/[facility] LABORATORY RDWSD 53.5 (H) 36.0 - [facility] SU 45.0 [facility] LABORATORY RDWCV 16.3 (H) 11.4 - [facility] LABORATORY MPV 8.8 7.6 - 12.9 [facility] LABORATORY nRBC % Auto 0.0 % [facility] LABORATORY nRBC Abs Auto 0.000 0.000 - [facility] 0.000 [facility] x10(3)/[facility] LABORATORY Specimen Anatomical Collection Method Collection Time Receive d Time (Source) Location / / Volume Laterality Blood specimen 08/11/2017 6:16 AM 018 6:24 (specimen) EST AM EST Resulting Agency Comment Spec In Lab Yonathan Smith MD HEMATOLOGY ORDERABLES Performing Organization Address City/[facility] Phon e Number [address] (ABNORMAL) Prothrombin Time (08/11/2017 6:16 AM EST) P athologist Signature PT 15.5 (H) 11.8 - 14.0 [facility] LABORATORY INR 1.3 (H) 0.9 - [...] Smith MD HEMATOLOGY ORDERABLES Performing Organization Address City/[facility] Phon e Number [address] Basic Metabolic Panel (non-fasting) (08/11/2017 6:16 AM EST) P athologist Signature Glucose Lvl 139 65 - 199 [facility] mg/dL [facility] LABORATORY Comment: Diabetes: >=200 mg/dL plus symp toms BUN 12 10 - 20 mg/dL [facility] LABORATORY Creatinine 0.91 0.80 - 1.50 mg/dL [facility] LABORATORY [...] or in patients with acute kidney failure. [email or web address] [email or web address] Specimen Anatomical Collection Method Collection Time Receive d Time (Source) Location / / Volume Laterality Blood specimen 08/11/2017 6:16 AM 018 6:24 (specimen) EST AM EST Resulting Agency Comment Spec In Lab Yonathan Smith MD CHEMISTRY ORDERABLES Performing Organization Address City/State/[place] [address] POCT Glucose (08/11/2017 4:07 AM EST) P athologist Signature POC Glucose 162 65 - 199 [facility] mg/dL [facility] LABORATORY Comment: Supplemental ranges: <140 mg/dL before meals <180 mg/dL all other times of the day Specimen Anatomical Collection Method Collection Time Receive d Time (Source) Location / / Volume Laterality Blood specimen 08/11/2017 4:07 AM 018 4:07 (specimen) EST AM EST Yonathan Smith MD POINT OF CARE TEST ORDERABLE S Performing Organization Address City/State/[place] [address] POCT Glucose (08/10/2017 11:59 PM EST) athologist Signature POC Glucose 166 65 - 199 [place] [facility] mg/dL [facility] LABORATORY Comment: Supplemental ranges: <140 mg/dL before meals <180 mg/dL all other times of the day Specimen Anatomical Collection Method Collection Time Receive d Time (Source) Location / / Volume Laterality Blood specimen 08/10/2017 11:59 8 (specimen) PM EST 11:59 PM EST Yonathan Smith MD POINT OF CARE TEST ORDERABLE S Performing Organization Address City/State/[place] [address] POCT Glucose (08/10/2017 8:12 PM EST) athologist Signature POC Glucose 156 65 - 199 [place] [facility] mg/dL [facility] LABORATORY Comment: Supplemental ranges: <140 mg/dL before meals <180 mg/dL all other times of the day Specimen Anatomical Collection Method Collection Time Receive d Time (Source) Location / / Volume Laterality Blood specimen 08/10/2017 8:12 PM 018 8:12 (specimen) EST PM EST Yonathan Smith MD POINT OF CARE TEST ORDERABLE S Performing Organization Address City/State/[place] [address] (ABNORMAL) POCT Glucose (08/10/2017 4:42 PM EST) athologist Signature POC Glucose 211 (H) 65 - 199 [place] [facility] mg/dL [facility] LABORATORY Comment: Supplemental ranges: <140 mg/dL before meals <180 mg/dL all other times of the day Specimen Anatomical Collection Method Collection Time Receive d Time (Source) Location / / Volume Laterality Blood specimen 08/10/2017 4:42 PM 018 4:42 (specimen) EST PM EST Yonathan Smith MD POINT OF CARE TEST ORDERABLE S Performing Organization Address City/State/[place] [address] (ABNORMAL) Differential, Automated (08/10/2017 2:30 PM EST) [facility] Method Time Signature Neutrophils % 87.6 % [facility] LABORATORY Neutr Abs (ANC) 9.90 (H) 1.70 - [facility] 6.10 [facility] x10(3)/[facility] LABORATORY Lymphocytes % 4.3 % [facility] LABORATORY Lymphocytes Abs 0.5 (L) 0.9 - 3.2 [facility] x10(3)/[facility] LABORATORY Monocytes % 6.0 % [facility] LABORATORY Monocyte Abs 0.7 0.3 - 0.9 [facility] x10(3)/[facility] LABORATORY Eosinophils % 1.1 % [facility] LABORATORY Eosinophils Abs 0.1 0.0 - 0.4 [facility] x10(3)/[facility] LABORATORY Basophils % 0.4 % [facility] LABORATORY Basophils Abs 0.0 0.0 - 0.1 [facility] x10(3)/[facility] LABORATORY Immature Gran % 0.60 % [...] Abs 0.07 (H) 0.00 - 0.04 x10(3)/[facility] LABORATORY Specimen Anatomical Collection Method Collection Time Receive d Time (Source) Location / / Volume Laterality Blood specimen 08/10/2017 2:30 PM 018 2:48 (specimen) EST PM EST Resulting Agency Comment Spec In Lab Yonathan Smith MD HEMATOLOGY ORDERABLES Performing Organization Address City/State/[place] [address] (ABNORMAL) Hemogram (08/10/2017 2:30 PM EST) Analysis Performed At Patho logist Time Signature WBC 11.3 (H) 4.0 - 9.5 [facility] x[facility](3)/[facility] LABORATORY RBC 3.13 (L) 4.58 - [place] [facility] 5.54 [facility] x10(6)/[facility] LABORATORY Hemoglobin 8.9 (L) 13.7 - [facility]m/dL [facility] LABORATORY Hematocrit 28.4 (L) 40.5 - [facility] % [facility] LABORATORY MCV 90.7 82.9 - [facility] 93.1 [facility] LABORATORY MCH 28.4 27.5 - [facility] [facility] LABORATORY MCHC 31.3 (L) 32.0 - [place] [facility] 35.7 gm/dL [facility] LABORATORY Platelets 213 145 - 357 [facility] x10(3)/[facility] LABORATORY RDWSD 53.7 (H) 36.0 - [facility]0 [facility] LABORATORY RDWCV 16.4 (H) 11.4 - [facility] % [facility] LABORATORY MPV 8.9 7.6 - 12.9 [facility] nRBC % Auto 0.0 % [facility] LABORATORY nRBC Abs Auto 0.000 0.000 - [facility] SU 0.000 [facility] x10(3)/[facility] LABORATORY Specimen Anatomical Collection Method Collection Time Receive d Time (Source) Location / / Volume Laterality Blood specimen 08/10/2017 2:30 PM 018 2:48 (specimen) EST PM EST Resulting Agency Comment Spec In Lab Yonathan Smith MD HEMATOLOGY ORDERABLES Performing Organization Address City/State/[place] [address] (ABNORMAL) POCT Glucose (08/10/2017 1:50 PM EST) athologist Signature POC Glucose 243 (H) 65 - 199 [facility] mg/dL [facility] LABORATORY Comment: Supplemental ranges: <140 mg/dL before meals <180 mg/dL all other times of the day Specimen Anatomical Collection Method Collection Time Receive d Time (Source) Location / / Volume Laterality Blood specimen 08/10/2017 1:50 PM 018 1:50 (specimen) EST PM EST Yonathan Smith MD POINT OF CARE TEST ORDERABLE S Performing Organization Address City/State/ZIP Code Phon e Number [address] POCT Glucose (08/10/2017 11:21 AM EST) athologist Signature POC Glucose 156 65 - 199 [facility] mg[facility]dL [facility] LABORATORY Comment: Supplemental ranges: <140 mg/dL before meals <180 mg/dL all other times of the day Specimen Anatomical Collection Method Collection Time Receive d Time (Source) Location / / Volume Laterality Blood specimen 08/10/2017 11:21 8 (specimen) AM EST 11:21 AM EST Yonathan Smith MD POINT OF CARE TEST ORDERABLE S Performing Organization Address City/State/ZIP Code Phon e Number [address] (ABNORMAL) Differential, Automated (08/10/2017 10:28 AM EST) [facility] gist Method Time Signature Neutrophils % 85.3 % [facility] LABORATORY Neutr Abs (ANC) 9.43 (H) 1.70 - [facility] 6.10 [facility] x10(3)/[facility] L LABORATORY Lymphocytes % 5.5 % [facility] LABORATORY Lymphocytes Abs 0.6 (L) 0.9 - 3.2 [facility] x10(3)/[facility] LABORATORY Monocytes % 5.9 % [facility] LABORATORY Monocyte Abs 0.6 0.3 - 0.9 [facility] x10(3)/[facility] LABORATORY Eosinophils % 2.1 % [facility] LABORATORY Eosinophils Abs 0.2 0.0 - 0.4 [facility] x10(3)/[facility] LABORATORY Basophils % 0.4 % [facility] LABORATORY Basophils Abs 0.0 0.0 - 0.1 [facility] x10(3)/[facility] LABORATORY Immature Gran % 0.80 % [facility] LABORATORY Comment: Immature granulocytes(IG's)percentage an d absolute count will include metamyelocytes, myelocytes, and promyelo cytes. Blood smears from CBCs yielding IG's will be scanned manually for concor dance. If this scan disagrees with the automated IG or if promyelocytes are not ed, a manual differential will be performed. Melisa Gran Abs 0.09 (H) 0.00 - 0.04 x10(3)/[facility] LABORATORY Specimen Anatomical Collection Method Collection Time Receive d Time (Source) Location / / Volume Laterality Blood specimen 08/10/2017 10:28 8 (specimen) AM EST 10:35 AM EST Resulting Agency Comment Spec In Lab Yonathan Smith MD HEMATOLOGY ORDERABLES Performing Organization Address City/State/[place] [address] (ABNORMAL) Hemogram (08/10/2017 10:28 AM EST) Analysis Performed At Patho logist Time Signature WBC 11.0 (H) 4.0 - 9.5 [facility] x10(3)/[facility] LABORATORY RBC 3.02 (L) 4.58 - [facility] SU 5.54 [facility] x10(6)/[facility] LABORATORY Hemoglobin 8.8 (L) 13.7 - [facility] 16.5 gm/dL [facility] LABORATORY Hematocrit 28.1 (L) 40.5 - [facility] SU 48.5 % [facility] LABORATORY MCV 93.0 82.9 - [facility] [address] [facility] LABORATORY MCH 29.1 27.5 - [place] [facility] 32.[address] [facility] LABORATORY MCHC 31.3 (L) 32.0 - [facility] 35.7 gm/dL [facility] LABORATORY Platelets 207 145 - 357 [facility] x10(3)/[facility] LABORATORY RDWSD 55.3 (H) 36.0 - [place]IS 45.0 [facility] RDWCV 16.4 (H) 11.4 - [place] 13.8 % [facility] MPV 9.0 7.6 - 12.9 [facility] DAV[facility] LABORATORY nRBC % Auto 0.0 % [facility] nRBC Abs Auto 0.000 0.000 - [place] [facility] 0.000 [facility] x10(3)/[facility] LABORATORY Specimen Anatomical Collection Method Collection Time Receive d Time (Source) Location / / Volume Laterality Blood specimen 08/10/2017 10:28 8 (specimen) AM EST 10:35 AM EST Resulting Agency Comment Spec In Lab Yonathan Smith MD HEMATOLOGY ORDERABLES Performing Organization Address City/State/[place] [address] VS Angiogram/intervention (vascular) (08/10/2017 [...] 2.5x80 5. Completion RLE angiogram 6. L ASSET PROTECTION MANAGER angiogram 7. 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 L ASSET PROTECTION MANAGER access in the distal L ASSET PROTECTION MANAGER. - Closure device: Mynx Technical Procedure: [...] for a 45cm 5F Destination. V18 and [place] a nd QuickCross catheters were used to [...] bifurcation. Access appeared in the distal R ASSET PROTECTION MANAGER. Closure and sheath removal was performed [...] 2.5x80 5. Completion RLE angiogram 6. L ASSET PROTECTION MANAGER angiogram 7. 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 L ASSET PROTECTION MANAGER access in the distal L ASSET PROTECTION MANAGER. - Closure device: Mynx Technical Procedure: [...] for a 45cm 5F Destination. V18 and [place] a nd QuickCross catheters were used to [...] bifurcation. Access appeared in the distal R ASSET PROTECTION MANAGER. Closure and sheath removal was performed [...] (ABNORMAL) Differential, Automated (08/10/2017 5:50 AM EST) [facility] Method Time Signature Neutrophils % 80.1 % [facility] LABORATORY Neutr Abs (ANC) 9.01 (H) 1.70 - [facility] 6.10 [facility] x10(3)/[facility] LABORATORY Lymphocytes % 8.8 % [facility] LABORATORY Lymphocytes Abs 1.0 0.9 - 3.2 [facility] x10(3)/[facility] LABORATORY Monocytes % 8.3 % [facility] LABORATORY Monocyte Abs 0.9 0.3 - 0.9 [facility] x10(3)/[facility] LABORATORY Eosinophils % 2.0 % [facility] LABORATORY Eosinophils Abs 0.2 0.0 - 0.4 [facility] x10(3)/[facility] LABORATORY Basophils % 0.4 % [facility] LABORATORY Basophils Abs 0.0 0.0 - 0.1 [facility] x10(3)/[facility] LABORATORY Immature Gran % 0.40 % [...] Organization Address City/State/[place] [address] (ABNORMAL) Hemogram (08/10/2017 5:50 AM EST) Analysis Performed At Patho logist Time Signature WBC 11.3 (H) 4.0 - 9.5 [facility] x10(3)/[facility] LABORATORY RBC 3.15 (L) 4.58 - [facility] 5.54 [facility] x10(6)/[facility] LABORATORY Hemoglobin 8.9 (L) 13.7 - [facility] 16.5 gm/dL [facility] LABORATORY Hematocrit 29.0 (L) 40.5 - [facility] 48.5 % [facility] LABORATORY MCV 92.1 82.9 - [facility] 93.1 [facility] LABORATORY MCH 28.3 27.5 - [facility] 32.[address] [facility] LABORATORY MCHC 30.7 (L) 32.0 - [facility].7 gm/dL [facility] LABORATORY Platelets 231 145 - 357 [facility] x10(3)/[facility] LABORATORY RDWSD 53.9 (H) 36.0 - [facility] 45.0 [facility] LABORATORY RDWCV 16.2 (H) 11.4 - [facility] 13.8 % [facility] LABORATORY MPV 8.7 7.6 - 12.9 [facility] LABORATORY nRBC % Auto 0.0 % [facility] LABORATORY nRBC Abs Auto 0.000 0.000 - [facility]000 [facility] x10(3)/[facility] LABORATORY Specimen Anatomical Collection Method Collection Time Receive d Time (Source) Location / / Volume Laterality Blood specimen 08/10/2017 5:50 AM 018 5:59 (specimen) EST AM EST Resulting Agency Comment Spec In Lab Yonathan Smith MD HEMATOLOGY ORDERABLES Performing Organization Address City/[facility]/[place] [address] (ABNORMAL) Basic Metabolic Panel (non-fasting) (08/10/2017 5:50 AM EST) P athologist Signature Glucose Lvl 135 65 - 199 [facility] mg/dL [facility] LABORATORY Comment: Diabetes: >=200 mg/dL plus symp toms BUN 17 10 - 20 mg/dL [facility] LABORATORY Creatinine 1.05 0.80 [...] or in patients with acute kidney failure. http://[employer]ab[employer]u/DHnkdep [email or web address]ab[employer]/DHMCnkf Specimen Anatomical Collection Method Collection Time Receive d Time (Source) Location / / Volume Laterality Blood specimen 08/10/2017 5:50 AM 018 5:59 (specimen) EST AM EST Resulting Agency Comment Spec In Lab Yonathan Smith MD CHEMISTRY ORDERABLES Performing Organization Address City/State/[place] [address] (ABNORMAL) Prothrombin Time (08/10/2017 5:50 AM EST) athologist Signature PT 16.8 (H) 11.8 - 14.0 [facility] LABORATORY INR 1.4 (H) 0.9 - 1.1 [facility] [...] Organization Address City/State/[place] [address] (ABNORMAL) POCT Glucose (08/10/2017 4:01 AM EST) athologist Signature POC Glucose 206 (H) 65 - 199 [facility] mg/dL [facility] LAB[facility]ORY Comment: Supplemental ranges: <140 mg/dL before meals <180 mg/dL all other times of the day Specimen Anatomical Collection Method Collection Time Receive d Time (Source) Location / / Volume Laterality Blood specimen 08/10/2017 4:01 AM 018 4:01 (specimen) EST AM EST Yonathan Smith MD POINT OF CARE TEST ORDERABLE S Performing Organization Address City/State/[place] [address] POCT Glucose (08/10/2017 2:01 AM EST) athologist Signature POC Glucose 188 65 - 199 [facility] mg/dL [facility] LAB[facility]ORY Comment: Supplemental ranges: <140 mg/dL before meals <180 mg/dL all other times of the day Specimen Anatomical Collection Method Collection Time Receive d Time (Source) Location / / Volume Laterality Blood specimen 08/10/2017 2:01 AM 018 2:01 (specimen) EST AM EST Yonathan Smith MD POINT OF CARE TEST ORDERABLE S Performing Organization Address City/[facility]/[place] [address] (ABNORMAL) POCT Glucose (08/09/2017 11:42 PM EST) athologist Signature POC Glucose 283 (H) 65 - 199 [facility] mg/dL [facility] LAB[facility] Comment: Supplemental ranges: <140 mg/dL before meals <180 mg/dL all other times of the day Specimen Anatomical Collection Method Collection Time Receive d Time (Source) Location / / Volume Laterality Blood specimen 08/09/2017 11:42 8 (specimen) PM EST 11:42 PM EST Yonathan Smith MD POINT OF CARE TEST ORDERABLE S Performing Organization Address City/[facility]/[place] [address] POCT Glucose (08/09/2017 8:55 PM EST) athologist Signature POC Glucose 182 65 - 199 [facility] mg/dL [facility] LAB[facility] Comment: Supplemental ranges: <140 mg/dL before meals <180 mg/dL all other times of the day Specimen Anatomical Collection Method Collection Time Receive d Time (Source) Location / / Volume Laterality Blood specimen 08/09/2017 8:55 PM 018 8:55 (specimen) EST PM EST Yonathan Smith MD POINT OF CARE TEST ORDERABLE S Performing Organization Address City/State/[place] [address] (ABNORMAL) APTT (08/09/2017 6:42 PM EST) P athologist Signature PTT 90 (H) 25 - 35 sec [facility] [...] Organization Address City/State/ZIP Code Phon e Number [address] POCT Glucose (08/09/2017 4:41 PM EST) athologist Signature POC Glucose 195 65 - 199 [place] mg/dL [facility] LABORATORY Comment: Supplemental ranges: <140 mg/dL before meals <180 mg/dL all other times of the day Specimen Anatomical Collection Method Collection Time Receive d Time (Source) Location / / Volume Laterality Blood specimen 08/09/2017 4:41 PM 018 4:41 (specimen) EST PM EST Yonathan Smith MD POINT OF CARE TEST ORDERABLE S Performing Organization Address City/[facility]/[place] [address] POCT Glucose (08/09/2017 12:29 PM EST) athologist Signature POC Glucose 140 65 - 199 [place] mg/dL [facility] LABORATORY Comment: Supplemental ranges: <140 mg/dL before meals <180 mg/dL all other times of the day Specimen Anatomical Collection Method Collection Time Receive d Time (Source) Location / / Volume Laterality Blood specimen 08/09/2017 12:29 8 (specimen) PM EST 12:29 PM EST Yonathan Smith MD POINT OF CARE TEST ORDERABLE S Performing Organization Address City/[facility]/ZIP Code Phon e Number [address] POCT Glucose (08/09/2017 9:59 AM EST) athologist Signature POC Glucose 135 65 - 199 [facility] mg/dL [facility] LABORATORY Comment: Supplemental ranges: <140 mg/dL before meals <180 mg/dL all other times of the day Specimen Anatomical Collection Method Collection Time Receive d Time (Source) Location / / Volume Laterality Blood specimen 08/09/2017 9:59 AM 018 9:59 (specimen) EST AM EST Yonathan Smith MD POINT OF CARE TEST ORDERABLE S Performing Organization Address [facility]/ZIP Code Phon e Number [address] Specimen to Pathology (08/09/2017 8:41 AM EST) Specimen Anatomical Collection Method Collection Time Receive d Time (Source) Location / / Volume Laterality AP Specimen 08/09/2017 8:41 AM 8 8:41 EST AM EST Narrative [facility] LABORAT ORY - 08/09/2017 8:41 AM EST Specimen requisition ordered. ??Separate Pathology report to follow Yonathan Smith MD PATHOLOGY/CYTOLOGY ORDERABLE S Performing Organization Address City/[facility]/[place] [address] Surgical Pathology Report (08/09/2017 8:40 AM EST) Component Value Ref Test Analysis Performed At [facility] Range Method Time Signature Surgical [id number] ? Location: [address] [place] [address]; A [facility] Report The signing pathologist has (i) examined the relevant preparation(s) for the [facility] specimen(s) and (ii) rendered or [...] [facility] Dept. of Pathology, [place], [place] CLINICAL INFORMATION [...] Organization Address City/State/[place] [address] Anaerobic Culture (08/09/2017 8:30 AM EST) [facility] gist Method Time Signature Anaerobic No anaerobic [facility] Culture organisms [facility] LABORATORY Specimen Anatomical Collection Method [...] City/[facility]/[place] [address] (ABNORMAL) Abscess/Wound Aspirate Culture (08/09/2017 8:30 AM EST) [facility] Method Time Signature Abscess/Wound Moderate mixed [place] Aspirate bacterial [place] Culture morphotypes [facility] normal LABORATORY cutaneous leroy (A) Gram Stain Rare White Blood Cells [place] Few Gram Positive Cocci in pairs [place] () [facility] LABORATORY Organism Gram Positive [place] Cocci in pairs [place] () [facility] LABORATORY Specimen Anatomical Collection [...] City/[facility]/[place] [address] POCT Glucose (08/09/2017 4:28 AM EST) P athologist Signature POC Glucose 128 65 - 199 [facility] mg/dL [facility] LABORATORY Comment: Supplemental ranges: <140 mg/dL before meals <180 mg/dL all other times of the day Specimen Anatomical Collection Method Collection Time Receive d Time (Source) Location / / Volume Laterality Blood specimen 08/09/2017 4:28 AM 018 4:28 (specimen) EST AM EST Yonathan Smith MD POINT OF CARE TEST ORDERABLE S Performing Organization Address City/State/ZIP Code Phon e Number [address] ABORH Recheck Status (08/09/2017 1:10 AM EST) [facility] Method Time Signature ABORH Type Completed [facility] LABORATORY Specimen Anatomical Collection Method Collection Time Receive d Time (Source) Location / / Volume Laterality Blood specimen 08/09/2017 1:10 AM 018 1:35 (specimen) EST AM EST Resulting Agency Comment Spec In Lab Yonathan Smith MD BLOOD BANK ORDERABLES Performing Organization Address City/[facility]/[place] [address] Antibody screen (08/09/2017 1:10 AM EST) Patholo gist Method Time Signature Ab Screen Negative [facility] LABORATORY Expires at 08/12/2017 [place] ZHAOSU [id number] on: [facility] LABORATORY Specimen Anatomical Collection Method Collection Time Receive d Time (Source) Location / / Volume Laterality Blood specimen 08/09/2017 1:10 AM 018 1:35 (specimen) EST AM EST Resulting Agency Comment Spec In Lab Yonathan Smith MD BLOOD BANK ORDERABLES Performing Organization Address City/[facility]/[place] [address] ABO/Rh Typing (08/09/2017 1:10 AM EST) P athologist Signature ABORh Type O Pos [facility] LABORATORY Specimen Anatomical Collection Method Collection Time Receive d Time (Source) Location / / Volume Laterality Blood specimen 08/09/2017 1:10 AM 018 1:35 (specimen) EST AM EST Resulting Agency Comment Spec In Lab Yonathan Smith MD BLOOD BANK ORDERABLES Performing Organization Address City/[facility] [place] [place] [address] (ABNORMAL) APTT (08/09/2017 1:10 AM EST) P athologist Signature PTT 86 (H) 25 - 35 sec [facility] [...] Organization Address City/State/ZIP Code Phon e Number [place] [id number] HOSPITAL [address] Drive (ABNORMAL) Differential, Automated (08/09/2017 1:10 AM EST) [facility] Method Time Signature Neutrophils % 76.2 % [facility] LABORATORY Neutr Abs (ANC) 8.59 (H) 1.70 - [facility] 6.10 [facility] x10(3)/[facility] LABORATORY Lymphocytes % 11.0 % [facility] LABORATORY Lymphocytes Abs 1.2 0.9 - 3.2 [facility] x10(3)/[facility] LABORATORY Monocytes % 8.4 % [facility] LABORATORY Monocyte Abs 1.0 (H) 0.3 - 0.9 [facility] x10(3)/[facility] LABORATORY Eosinophils % 3.5 % [facility] LABORATORY Eosinophils Abs 0.4 0.0 - 0.4 [facility] x10(3)/[facility] LABORATORY Basophils % 0.5 % [facility] LABORATORY Basophils Abs 0.1 0.0 - 0.1 [facility] x10(3)/[facility] LABORATORY Immature Gran % 0.40 % [...] Organization Address City/State/[place] [address] (ABNORMAL) Hemogram (08/09/2017 1:10 AM EST) Analysis Performed At Patho logist Time Signature WBC 11.3 (H) 4.0 - 9.5 [facility] x10(3)/[facility] LABORATORY RBC 3.47 (L) 4.58 - [facility] 5.54 [facility] x10(6)/[facility] LABORATORY Hemoglobin 10.0 (L) 13.7 - [facility].5 gm/dL [facility] LABORATORY Hematocrit 31.9 (L) 40.5 - [facility] 48.5 % [facility] LABORATORY MCV 91.9 82.9 - [facility] 93.1 [facility] LABORATORY MCH 28.8 27.5 - [facility] [facility] LABORATORY MCHC 31.3 (L) 32.0 - [facility] 35.7 gm/dL [facility] LABORATORY Platelets 234 145 - 357 [facility] x10(3)/[facility] LABORATORY RDWSD 54.0 (H) 36.0 - [facility] 45.0 [facility] LABORATORY RDWCV 16.2 (H) 11.4 - [facility] 13.8 % [facility] LABORATORY MPV 8.7 7.6 - 12.9 [facility] LABORATORY nRBC % Auto 0.0 % [facility] LABORATORY nRBC Abs Auto 0.000 0.000 - [facility] 0.000 [facility] x10(3)/[facility] LABORATORY Specimen Anatomical Collection Method Collection Time Receive d Time (Source) Location / / Volume Laterality Blood specimen 08/09/2017 1:10 AM 018 1:19 (specimen) EST AM EST Resulting Agency Comment Spec In Lab Yonathan Smith MD HEMATOLOGY ORDERABLES Performing Organization Address City/State/[place] [address] (ABNORMAL) Prothrombin Time (08/09/2017 1:10 AM EST) P athologist Signature PT 16.0 (H) 11.8 - 14.0 [facility] LABORATORY INR 1.3 (H) 0.9 - [...] Organization Address City/State/[place] [address] (ABNORMAL) Basic Metabolic Panel (non-fasting) (08/09/2017 1:10 AM EST) athologist Signature Glucose Lvl 108 65 - 199 [facility] mg/dL [facility] LABORATORY Comment: Diabetes: >=200 mg/dL plus symp toms BUN 34 (H) 10 - 20 mg/dL [facility] LABORATORY Creatinine 1.54 (H) 0.80 - 1.50 mg/dL [facility] [...] Chloride 96 (L) 98 - 107 mmol/L [facility] LABORATORY CO2 29 22 - 31 mmol/L [facility] LABORATORY Anion Gap 13 5 - 15 mmol/L [facility] LABORATORY Calcium 8.3 (L) 8.5 - 10.5 mg/dL [facility] LABORATORY Estimated GFR 45 (L) >=[address] [facility] LABORATORY Comment: The reported eGFR should be multiplied b y 1.2 for patients. The MDRD is not an appropriate measure o f renal function for patients with body mass extremes or in patients with acute kidney failure. http://[employer]/DHnkdep http://[employer]/DHMCnkf Specimen Anatomical Collection Method Collection Time Receive d Time (Source) Location / / Volume Laterality Blood specimen 08/09/2017 1:10 AM 018 1:19 (specimen) EST AM EST Resulting Agency Comment Spec In Lab Yonathan Smith MD CHEMISTRY ORDERABLES Performing Organization Address City/[facility]/RUST Code Phon e Number [address] POCT Glucose (08/09/2017 12:05 AM EST) athologist Signature POC Glucose 128 65 - 199 [facility] SU mg/dL [facility] LABORATORY Comment: Supplemental ranges: <140 mg/dL before meals <180 mg/dL all other times of the day Specimen Anatomical Collection Method Collection Time Receive d Time (Source) Location / / Volume Laterality Blood specimen 08/09/2017 12:05 8 (specimen) AM EST 12:05 AM EST Yonathan Smith MD POINT OF CARE TEST ORDERABLE S Performing Organization Address City/[facility]/[place] [address] (ABNORMAL) POCT Glucose (08/08/2017 7:36 PM EST) athologist Signature POC Glucose 215 (H) 65 - 199 [facility] mg[facility]dL [facility] LABOR[facility]ORY Comment: Supplemental ranges: <140 mg/dL before meals <180 mg/dL all other times of the day Specimen Anatomical Collection Method Collection Time Receive d Time (Source) Location / / Volume Laterality Blood specimen 08/08/2017 7:36 PM 018 7:36 (specimen) EST PM EST Yonathan Smith MD POINT OF CARE TEST ORDERABLE S Performing Organization Address City/[facility]/[place] [address] (ABNORMAL) POCT Glucose (08/08/2017 6:23 PM EST) athologist Signature POC Glucose 216 (H) 65 - 199 [facility] Comment: Supplemental ranges: <140 mg/dL before meals <180 mg/dL all other times of the day Specimen Anatomical Collection Method Collection Time Receive d Time (Source) Location / / Volume Laterality Blood specimen 08/08/2017 6:23 PM 018 6:23 (specimen) EST PM EST Yonathan Smith MD POINT OF CARE TEST ORDERABLE S Performing Organization Address City/State/ZIP Code [facility] e Number [address] (ABNORMAL) APTT (08/08/2017 6:00 PM EST) athologist [facility] PTT 97 (H) 25 - 35 sec [facility] [...] Organization Address City/State/ZIP Code Phon e Number [address] POCT Glucose (08/08/2017 4:42 PM EST) athologist Signature POC Glucose 78 65 - 199 [facility] mg/dL [facility] Comment: Supplemental ranges: <140 mg/dL before meals <180 mg/dL all other times of the day Specimen Anatomical Collection Method Collection Time Receive d Time (Source) Location / / Volume Laterality Blood specimen 08/08/2017 4:42 PM 018 4:42 (specimen) EST PM EST Yonathan Smith MD POINT OF CARE TEST ORDERABLE S Performing Organization Address City/State/ZIP Code Phon e Number [address] (ABNORMAL) POCT Glucose (08/08/2017 4:01 PM EST) athologist Signature POC Glucose 58 (L) 65 - 199 [facility] Comment: Supplemental ranges: <140 mg/dL before meals <180 mg/dL all other times of the day Specimen Anatomical Collection Method Collection Time Receive d Time (Source) Location / / Volume Laterality Blood specimen 08/08/2017 4:01 PM 018 4:01 (specimen) EST PM EST Yonathan Smith MD POINT OF CARE TEST ORDERABLE S Performing Organization Address City/[facility]/[place] [address] POCT Glucose (08/08/2017 11:51 AM EST) athologist Signature POC Glucose 90 65 - 199 [facility] mg[facility] Comment: Supplemental ranges: <140 mg/dL before meals <180 mg/dL all other times of the day Specimen Anatomical Collection Method Collection Time Receive d Time (Source) Location / / Volume Laterality Blood specimen 08/08/2017 11:51 8 (specimen) AM EST 11:51 AM EST Yonathan Smith MD POINT OF CARE TEST ORDERABLE S Performing Organization Address City/State/[place] [address] (ABNORMAL) APTT (08/08/2017 10:27 AM EST) athologist Signature PTT 64 (H) 25 - 35 sec [facility] [...] Organization Address City/State/[place] [address] POCT Glucose (08/08/2017 8:02 AM EST) athologist Signature POC Glucose 178 65 - 199 [facility] mg/dL [facility] Comment: Supplemental ranges: <140 mg/dL before meals <180 mg/dL all other times of the day Specimen Anatomical Collection Method Collection Time Receive d Time (Source) Location / / Volume Laterality Blood specimen 08/08/2017 8:02 AM 018 8:02 (specimen) EST AM EST Yonathan Smith MD POINT OF CARE TEST ORDERABLE S Performing Organization Address City/[facility] [place] [address] (ABNORMAL) APTT (08/08/2017 4:51 AM EST) athologist Signature PTT >160 25 - 35 [facility] (Critical) sec [facility] Comment: Called by: HOWARD, Read [...] Smith MD HEMATOLOGY ORDERABLES Performing Organization Address City/[facility]/ZIP [facility] [place] [address] (ABNORMAL) Differential, Automated (08/08/2017 4:51 AM EST) Patholo gist Method Time Signature Neutrophils % 77.9 % [facility] Neutr Abs (ANC) 8.17 (H) 1.70 - [facility] 6.10 [facility] x10(3)/[facility] LABORATORY Lymphocytes % 10.3 % [facility] Lymphocytes Abs 1.1 0.9 - 3.2 [facility] x10(3)/[facility] LABORATORY Monocytes % 7.0 % [facility] Monocyte Abs 0.7 0.3 - 0.9 [facility] x10(3)/[facility] LABORATORY Eosinophils % 3.6 % [facility] Eosinophils Abs 0.4 0.0 - 0.4 [facility] x10(3)/[facility] LABORATORY Basophils % 0.5 % [facility] Basophils Abs 0.0 0.0 - 0.1 [facility] x10(3)/[facility] LABORATORY Immature Gran % 0.70 % [...] Abs 0.07 (H) 0.00 - 0.04 x10(3)/[facility] LABORATORY Specimen Anatomical Collection Method Collection Time Receive d Time (Source) Location / / Volume Laterality Blood specimen 08/08/2017 4:51 AM 018 5:14 (specimen) EST AM EST Resulting Agency Comment Spec In Lab Yonathan Smith MD HEMATOLOGY ORDERABLES Performing Organization Address City/State/[place] [address] (ABNORMAL) Hemogram (08/08/2017 4:51 AM EST) Analysis Performed At Patho logist Time Signature WBC 10.5 (H) 4.0 - 9.5 [facility] x10(3)/[facility] LABORATORY RBC 3.27 (L) 4.58 - [place] [facility] 5.54 [facility] x10(6)/[facility] LABORATORY Hemoglobin 9.3 (L) 13.7 - [facility] 16.5 gm/dL [facility] Hematocrit 30.3 (L) 40.5 - [facility] 48.5 % [facility] MCV 92.7 82.9 - [facility] 93[facility]1 [facility] LABORATORY MCH 28.4 27.5 - [facility] SU 32.[address] [facility] MCHC 30.7 (L) 32.0 - [facility] 35.7 gm/dL [facility] Platelets 252 145 - 357 [facility] x10(3)/[facility] LABORATORY RDWSD 54.6 (H) 36.0 - [facility] 45.0 [facility] RDWCV 16.2 (H) 11.4 - [facility] 13.8 % [facility] MPV 9.1 7.6 - 12.9 [facility] LABORATORY nRBC % Auto 0.0 % [facility] nRBC Abs Auto 0.000 0.000 - [facility] 0.000 [facility] x10(3)/[facility] LABORATORY Specimen Anatomical Collection Method Collection Time Receive d Time (Source) Location / / Volume Laterality Blood specimen 08/08/2017 4:51 AM 018 5:14 (specimen) EST AM EST Resulting Agency Comment Spec In Lab Yonathan Smith MD HEMATOLOGY ORDERABLES Performing Organization Address City/State/[place] [address] (ABNORMAL) Prothrombin Time (08/08/2017 4:51 AM EST) P athologist Signature PT 18.1 (H) 11.8 - 14.0 [facility] LABORATORY INR 1.5 (H) 0.9 - 1.1 [facility] [...] Organization Address City/State/[place] [address] (ABNORMAL) Basic Metabolic Panel (non-fasting) (08/08/2017 4:51 AM EST) athologist Signature Glucose Lvl 229 (H) 65 - 199 [facility] mg/dL [facility] Comment: Diabetes: >=200 mg/dL plus symp toms BUN 35 (H) 10 - 20 mg/dL [facility] Creatinine 1.57 (H) 0.80 - 1.50 mg/dL [facility] Sodium 136 135 - 145 [...] Chloride 94 (L) 98 - 107 mmol/L [facility] CO2 25 22 - 31 mmol/L [facility] Anion Gap 17 (H) 5 - 15 mmol/L [facility] Calcium 7.9 (L) 8.5 - 10.5 mg/dL [facility] Estimated GFR 44 (L) >=60 [facility] Comment: The reported eGFR should be multiplied b y 1.2 for patients. The MDRD is not an appropriate measure o f renal function for patients with body mass extremes or in patients with acute kidney failure. http://[employer]ab[employer]u/DHnkdep http://[employer]Yabidu/DHMCnkf Specimen Anatomical Collection Method Collection Time Receive d Time (Source) Location / / Volume Laterality Blood specimen 08/08/2017 4:51 AM 018 5:14 (specimen) EST AM EST Resulting Agency Comment Spec In Lab Yonathan Smith MD CHEMISTRY ORDERABLES Performing Organization Address City/[facility]/ZIP Code Phon e Number [address] POCT Glucose (08/08/2017 4:20 AM EST) athologist Signature POC Glucose 193 65 - 199 [facility] mg/dL [facility] Comment: Supplemental ranges: <140 mg/dL before meals <180 mg/dL all other times of the day Specimen Anatomical Collection Method Collection Time Receive d Time (Source) Location / / Volume Laterality Blood specimen 08/08/2017 4:20 AM 018 4:20 (specimen) EST AM EST Yonathan Smith MD POINT OF CARE TEST ORDERABLE S Performing Organization Address City/[facility]/ZIP Code Phon e Number [address] POCT Glucose (08/07/2017 11:11 PM EST) athologist Signature POC Glucose 124 65 - 199 [facility] mg/dL [facility] Comment: Supplemental ranges: <140 mg/dL before meals <180 mg/dL all other times of the day Specimen Anatomical Collection Method Collection Time Receive d Time (Source) Location / / Volume Laterality Blood specimen 08/07/2017 11:11 8 (specimen) PM EST 11:11 PM EST Yonathan Smith MD POINT OF CARE TEST ORDERABLE S Performing Organization Address City/[facility]/ZIP Code Phon e Number [address] (ABNORMAL) APTT (08/07/2017 10:18 PM EST) athologist Signature PTT 114 (H) 25 - 35 sec [facility] [...] Smith MD HEMATOLOGY ORDERABLES Performing Organization Address City/[facility]/ZIP Code Phon e Number [address] POCT Glucose (08/07/2017 8:10 PM EST) athologist Signature POC Glucose 140 65 - 199 [facility] mg/dL [facility] Comment: Supplemental ranges: <140 mg/dL before meals <180 mg/dL all other times of the day Specimen Anatomical Collection Method Collection Time Receive d Time (Source) Location / / Volume Laterality Blood specimen 08/07/2017 8:10 PM 018 8:10 (specimen) EST PM EST Yonathan Smith MD POINT OF CARE TEST ORDERABLE S Performing Organization Address City/[facility]/ZIP Code Phon e Number [address] POCT Glucose (08/07/2017 5:27 PM EST) athologist Signature POC Glucose 187 65 - 199 [facility] mg[facility] Comment: Supplemental ranges: <140 mg/dL before meals <180 mg/dL all other times of the day Specimen Anatomical Collection Method Collection Time Receive d Time (Source) Location / / Volume Laterality Blood specimen 08/07/2017 5:27 PM 018 5:27 (specimen) EST PM EST Yonathan Smith MD POINT OF CARE TEST ORDERABLE S Performing Organization Address City/[facility]/ZIP Code Phon e Number [address] POCT Glucose (08/07/2017 3:29 PM EST) athologist Signature POC Glucose 86 65 - 199 [facility] mg/dL [facility] Comment: Supplemental ranges: <140 mg/dL before meals <180 mg/dL all other times of the day Specimen Anatomical Collection Method Collection Time Receive d Time (Source) Location / / Volume Laterality Blood specimen 08/07/2017 3:29 PM 018 3:29 (specimen) EST PM EST Yonathan Smith MD POINT OF CARE TEST ORDERABLE S Performing Organization Address City/[facility]/[place] [address] (ABNORMAL) APTT (08/07/2017 2:50 PM EST) athologist [facility] PTT 60 (H) 25 - 35 sec [facility] [...] Smith MD HEMATOLOGY ORDERABLES Performing Organization Address City/[facility]/[place] [address] (ABNORMAL) POCT Glucose (08/07/2017 2:23 PM EST) athologist Signature POC Glucose 55 (L) 65 - 199 [facility] mg/dL [facility] Comment: Supplemental ranges: <140 mg/dL before meals <180 mg/dL all other times of the day Specimen Anatomical Collection Method Collection Time Receive d Time (Source) Location / / Volume Laterality Blood specimen 08/07/2017 2:23 PM 018 2:23 (specimen) EST PM EST Yonathan Smith MD POINT OF CARE TEST ORDERABLE S Performing Organization Address City/[facility]/ZIP Code [place] [address] [facility] LAB[address]ORY Drive POCT Glucose (08/07/2017 12:08 PM EST) P athologist Signature POC Glucose 77 65 - 199 [facility] mg/dL [facility] Comment: Supplemental ranges: <140 mg/dL before meals <180 mg/dL all other times of the day Specimen Anatomical Collection Method Collection Time Receive d Time (Source) Location / / Volume Laterality Blood specimen 08/07/2017 12:08 8 (specimen) PM EST 12:08 PM EST Yonathan Smith MD POINT OF CARE TEST ORDERABLE S Performing Organization Address City/State/ZIP Code Phon e Number [address] (ABNORMAL) Differential, Automated (08/07/2017 7:30 AM EST) Patholo gist Method Time Signature Neutrophils % 73.8 % [facility] Neutr Abs (ANC) 7.17 (H) 1.70 - [facility] 6.10 [facility] x10(3)/[facility] LABORATORY Lymphocytes % 12.2 % [facility] Lymphocytes Abs 1.2 0.9 - 3.2 [facility] x10(3)/[facility] LABORATORY Monocytes % 9.0 % [facility] Monocyte Abs 0.9 0.3 - 0.9 [facility] x10(3)[facility] LABORATORY Eosinophils % 3.9 % [facility] Eosinophils Abs 0.4 0.0 - 0.4 [facility] x10(3)/[facility] LABORATORY Basophils % 0.6 % [facility] Basophils Abs 0.1 0.0 - 0.1 [facility] x10(3)/[facility] LABORATORY Immature Gran % 0.50 % [...] Organization Address City/State/[place] [address] (ABNORMAL) Hemogram (08/07/2017 7:30 AM EST) Analysis Performed At Patho logist Time Signature WBC 9.7 (H) 4.0 - 9.5 [facility] x10(3)/[facility] LABORATORY RBC 3.54 (L) 4.58 - [facility] 5.54 [facility] x10(6)/[facility] LABORATORY Hemoglobin 9.9 (L) 13.7 - [facility] 16.5 gm/dL [facility] Hematocrit 32.3 (L) 40.5 - [facility] 48.5 % [facility] MCV 91.2 82.9 - [facility] 93.1 [facility] LABORATORY MCH 28.0 27.5 - [facility] 32.[address] [facility] MCHC 30.7 (L) 32.0 - [facility] 35.7 gm/dL [facility] Platelets 312 145 - 357 [facility] x10(3)/[facility] LABORATORY RDWSD 53.2 (H) 36.0 - [facility] SU 45.0 [facility] LABORATORY RDWCV 16.0 (H) 11.4 - [facility] 13.8 % [facility] MPV 8.9 7.6 - 12.9 [facility] LABORATORY nRBC % Auto 0.0 % [facility] nRBC Abs Auto 0.000 0.000 - [facility] SU 0.000 [facility] x10(3)/[facility] LABORATORY Specimen Anatomical Collection Method Collection Time Receive d Time (Source) Location / / Volume Laterality Blood specimen 08/07/2017 7:30 AM 018 7:45 (specimen) EST AM EST Resulting Agency Comment Spec In Lab Yonathan Smith MD HEMATOLOGY ORDERABLES Performing Organization Address City/State/[place] [address] (ABNORMAL) Basic Metabolic Panel (non-fasting) (08/07/2017 7:30 AM EST) P athologist Signature Glucose Lvl 80 65 - 199 [facility] mg/dL [facility] Comment: Diabetes: >=200 mg/dL plus symp toms BUN 31 (H) 10 - 20 mg/dL [facility] Creatinine 1.22 0.80 - 1.50 mg/dL [facility] LABORATORY [...] estions. Chloride 99 98 - 107 mmol/L [facility] CO2 29 22 - 31 mmol/L [facility] Anion Gap 12 5 - 15 mmol/L [facility] Calcium 8.5 8.5 - 10.5 mg/dL [facility] Estimated GFR 59 (L) >=60 [facility] Comment: The reported eGFR should be multiplied b y 1.2 for patients. The MDRD is not an appropriate measure o f renal function for patients with body mass extremes or in patients with acute kidney failure. http://[employer]Yabidu/DHnkdep http://Clari/DHMCnkf Specimen Anatomical Collection Method Collection Time Receive d Time (Source) Location / / Volume Laterality Blood specimen 08/07/2017 7:30 AM 018 7:45 (specimen) EST AM EST Resulting Agency Comment Spec In Lab Yonathan Smith MD CHEMISTRY ORDERABLES Performing Organization Address City/[facility]/ZIP Code Phon e Number [address] POCT Glucose (08/07/2017 7:27 AM EST) athologist Signature POC Glucose 81 65 - 199 [facility] mg/dL [facility] Comment: Supplemental ranges: <140 mg/dL before meals <180 mg/dL all other times of the day Specimen Anatomical Collection Method Collection Time Receive d Time (Source) Location / / Volume Laterality Blood specimen 08/07/2017 7:27 AM 018 7:27 (specimen) EST AM EST Yonathan Smith MD POINT OF CARE TEST ORDERABLE S Performing Organization Address [facility] Phon e Number [address] APTT (08/07/2017 7:04 AM EST) athologist [facility] PTT 34 25 - 35 sec [facility] [...] Smith MD HEMATOLOGY ORDERABLES Performing Organization Address City/[facility]/ZIP [facility] [place] [address] (ABNORMAL) Prothrombin Time (08/07/2017 7:04 AM EST) athologist [facility] PT 17.3 (H) 11.8 - 14.0 [facility] LABORATORY INR 1.4 (H) 0.9 - 1.1 [facility] [...] Smith MD HEMATOLOGY ORDERABLES Performing Organization Address City/[facility]/ZIP Code Phon e Number [address] POCT Glucose (08/07/2017 4:03 AM EST) athologist Signature POC Glucose 93 65 - 199 [facility] Comment: Supplemental ranges: <140 mg/dL before meals <180 mg/dL all other times of the day Specimen Anatomical Collection Method Collection Time Receive d Time (Source) Location / / Volume Laterality Blood specimen 08/07/2017 4:03 AM 018 4:03 (specimen) EST AM EST Yonathan Smith MD POINT OF CARE TEST ORDERABLE S Performing Organization Address City/[facility]/ZIP Code Phon e Number [address] POCT Glucose (08/07/2017 12:04 AM EST) athologist Signature POC Glucose 107 65 - 199 [facility] mg[facility] Comment: Supplemental ranges: <140 mg/dL before meals <180 mg/dL all other times of the day Specimen Anatomical Collection Method Collection Time Receive d Time (Source) Location / / Volume Laterality Blood specimen 08/07/2017 12:04 8 (specimen) AM EST 12:04 AM EST Yonathan Smith MD POINT OF CARE TEST ORDERABLE S Performing Organization Address City/[facility]/ZIP Code Phon e Number [address] POCT Glucose (08/06/2017 7:56 PM EST) P athologist Signature POC Glucose 178 65 - 199 [facility] mg/dL [facility] Comment: Supplemental ranges: <140 mg/dL before meals <180 mg/dL all other times of the day Specimen Anatomical Collection Method Collection Time Receive d Time (Source) Location / / Volume Laterality Blood specimen 08/06/2017 7:56 PM 018 7:56 (specimen) EST PM EST Yonathan Smith MD POINT OF CARE TEST ORDERABLE S Performing Organization Address City/State/[place] [address] TcPO2 (08/06/2017 2:32 PM EST) Component Value Ref Test Analysis Performed At Patholo gist Range Method Time Signature VB Text Department: Vascular Surgery Lab VASCUBASE Report Patient: [id number] (GREGORY HOANG) CPT: 9331630 ICD10: I99.8 Referring Physician: YONATHAN SMITH ?? [...] Chiquis Mcgrath RN) [phone] (Given - Provider: hCiquis Mcgrath, RN) 0800 (G iven - Provider: [...]
Routine documented in this encounter Care Teams Concrete Panel Installer Relationship Specialty Start Date End Date Lovely Vicente MD PCP - General 04/16/[address] [place] [address] [address] [place] [address] documented as of this encounter
--- OUTSIDE RECORDS SUMMARY | 2022-03-06 08:10 | XMS_ITS | Encounter Summary ---
:1945 Author Organization [facility] [place] [address] Care Team Providers Name Role Phone Lovely Vicente MD Primary Care Provider Reason for Visit Auth/Cert Specialty Diagnoses / Procedures Referred By Contact Refer red To Contact Diagnoses Critical lower limb ischemia CELLULITIS RT FOOT Procedures EMERGENCY Referral ID Status Reason Start Date Expiration Date Visits Requ ested Visits Authorized [id number] 1 1 Encounter Details Date Type Department Care Team Description 08/11/2017 Surgery Main Operating Room Yonathan Smith (M SURG) DRESSING CHANGE Barbara Ocampo MD (FOR OTHER THAN IVAN) [facility] UNDER ANES. 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 Patient [...] Dorsalis Pedis (Ankle) Artery ?132 ? 0.94 ??[place]-Biphasic ? Posterior Tibial (Ankle) Artery ??154 ? 1.10 ??[place]-Biphasic ? Fourth Toe ? 67 ?0.48 ?? [...] the foot. Discharge Conditions/Prognosis: Good Discharge to: [facility] Rehab Discharge Medications: Your Medications New Medications [...] For any problems or questions please call [phone] ZELDA Smith, tongue stitcher Nurse Clinician For issues on weeknights after 5pm and weekends please call [phone] and ask for the Vascular Fellow technical assistance consultant. General Instructions None Future Appointments and Orders Future Appointments Provider Department Dept Phone 08/26/2017 4:00 PM Aurelia Rivera PA [facility] [place] [phone] 09/07/2017 3:00 PM LAB, THREE L Lab 3L [facility] [phone] 09/07/2017 4:00 PM Luz Prescott MD Endocrinology [facility] [place] [phone] 09/09/2017 8:00 AM Barbra Soares APRN [facility] Management [facility] [place] [phone] Please bring a list of your current [...] For any problems or questions please call [phone] ZELDA Smith, tongue stitcher Nurse Clinician For issues on weeknights after 5pm and weekends please call [phone] and ask for the Vascular Fellow technical assistance consultant. documented in this encounter Medications at Time [...] of Care Management Discharge Note Patient Destination: [facility] ([facility]) [address] [place] [id number] Transportation: with (at bedside) Time of Discharge: by 12 noon Level of Care: swing Patient Aware: yes Family Notified: yes Md to call report to: Yissel Quintero CONCRETE PRODUCTS DISPATCHER already called RN to call report to: [phone] Shirin Wolf Office of Care Management Pager [phone] Shirin Wagner RN - 08/16/2017 10:50 AM EST [facility] has offered pt swing bed. Pt and accept bed. will transport via car. CONCRETE PRODUCTS DISPATCHER Yissel Quintero aware; d/c paperwork will be completed by 12 noon. [facility] requests pt arrival by 1400 today; CONCRETE PRODUCTS DISPATCHER, RN, and family aware. CONCRETE PRODUCTS DISPATCHER called [facility] and was told that they prefer pt to arrive with wound vac dressing applied but clamped. CONCRETE PRODUCTS DISPATCHER applied new wound vac dressing. RN has [facility] number to call report. PASSR completed; CONCRETE PRODUCTS DISPATCHER paged to request provider signature in highlighted space. Indigo from [facility] notified via email that home wound vac now cancelled; [facility] has picked up from room and order cancelled. Packet started and provided to community sports coordinator. Medicare important message explained to patient, patient signed. Copy provided to patient and signature page to OCM for inclusion in pt EMR. Radha Georges - 08/16/2017 10:34 AM EST Office of Care Management/Marketing Support Manager Patient Name: Gregory Hoang : 1945 Patient has been offered a swing bed at [facility]. The patient will be transported by private transportation. No MD to MD report necessary Please call Nursing Report to [phone], ask for performing arts road manager. Info to accompany patient: Narcotic Prescriptions Copies of Medication Administration Records and IV sheets for past 10 days. Plan: Marketing Support Manager will be available to the patient and [id number] Armor Crewman-RN and/or Braid Maker for further assistance. Patient will be discharged to: [facility] [address] [place] [address] [id number] Radha Powers, Marketing Support Manager Mira Black, VAMSI - 08/15/2017 10:05 PM EST [address] Flores to ask if he wanted to hold metoprolol dose. BP 95/58. OK to hold this dose Courtney Brito - 08/15/2017 3:26 PM EST Office of Care Management(OCM)/Marketing Support Manager(RS)/ D/C Planning re : Patient is medically ready for d/c today. RS has been in contact with [facility] to see if they could offer a bed. [facility] is still reviewing the case and need their MD to review chart prior to accepting or declining. OCM team needs to check in with [place] tomorrow to check on status. 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 Vac in place. [...] would like information about patient's referral to: [facility] PHONE: [phone] FAX: [phone] CM spoke with RS who said that [...] rehab. Await recommendations from PT. Covering pager #[phone]. 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 Firer Boiler Kaitlin Saha, RN Pager #[phone] Payam Rosales - 08/13/2017 2:37 PM EST [facility] Encounter Note Patient Name: Gregory Hoang : [id number] MR#: [id number] Admit Date: 08/06/2017 1:41 PM Hospital Day 7 days Narrative: Visited to introduce and assess acceptance of [facility]. Pt was awake, alert, oriented and in chair and family was there. Assessment:Patient coping positively with stresses of illness/hospitalization at this time. Pt says that he is hoping to get better and his family was there. Pt says that he has family care and supportand taking one day at time. Intervention and Outcome: Provided emotional support and encouraging presence. 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 A letter describing our affiliations was reviewed with them and theywere educated about their right to choose where referrals are placed. Patient requests referral to [facility] [place] [place] [facility]. PHONE: [phone] FAX: [phone]. And Home NPWT (Negative Pressure Wound Therapy) aka wound vac device made available to pt. Serial # confirmed. Reviewed [facility] Proof of Delivery/Assignment of Benefits Statement(POD/AOB) Form w patient or authorized agent signing on behalf of patient. Copy of POD/AOB provided to pt and other copy faxed to [employer] @ fax# [phone] Expected date of discharge: 08/12/2017. 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 Address: [address] [place] [address] [place] [address] (home) Mobile: Telephone Information: Referring Provider: No [...] SETUP performed by Manny Mcknight MD at [facility] MAIN OR ??? PRO CABG, ARTERIAL, SINGLE N/A 07/07/2017 @CABG, USING ARTERIAL GRAFT;SINGLE ARTERIAL GRAFT (WRVU 33.75) performed by Yuan Retana MD at [facility] MAIN OR ??? PRO CABG, ARTERY-VEIN, TWO N/A 07/07/2017 @CABG, TWO VENOUS GRAFTS & ARTERIAL GRAFT (WRVU 7.93) performed by Yuan Retana MD at [facility] MAIN OR ??? PRO COLONOSCOPY, REMV LESN, SNARE 01/16/2014 COLONOSCOPY, POLYPECTOMY, REMOVAL LESION BY SNARE performed by Nohemi Jaimes MD at [facility] ENDOSCOPY ??? PRO ENDOSCOPY W/VIDEO-ASST VEIN HARVEST, CABG Right 07/07/2017 ENDOSCOPIC HARVEST VEIN(S) FOR CABG (WRVU 0.31) performed by Yuan Retana MD at [facility] MAIN OR ??? PRO THYROIDECTOMY 03/28/2013 THYROIDECTOMY, TOTAL OR COMPLETE performed by Manny Mcknight MD at [facility] MAIN OR Date/Procedure Med's given/comments 08/10/17 RLE angio with multiple REVENUE CYCLE ANALYST to R posterior tibial artery Fentanyl [...] tablet by mouth 2 times daily. 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 Heparin gtt continues to run. Pt a/ox4. [...] of : 1945 AGE 72 y.o. Address: [address] [place] [address] [place] [address] (home) Mobile: Telephone Information: Referring Provider: No [...] SETUP performed by Manny Mcknight MD at [facility] MAIN OR ??? PRO CABG, ARTERIAL, SINGLE N/A 07/07/2017 @CABG, USING ARTERIAL GRAFT;SINGLE ARTERIAL GRAFT (WRVU 33.75) performed by Yuan Retana MD at [facility] MAIN OR ??? PRO CABG, ARTERY-VEIN, TWO N/A 07/07/2017 @CABG, TWO VENOUS GRAFTS & ARTERIAL GRAFT (WRVU 7.93) performed by Yuan Retana MD at [facility] OR ??? PRO COLONOSCOPY, REMV LESN, SNARE 01/16/2014 COLONOSCOPY, POLYPECTOMY, REMOVAL LESION BY SNARE performed by Nohemi Jaimes MD at [facility] ENDOSCOPY ??? PRO ENDOSCOPY W/VIDEO-ASST VEIN HARVEST, CABG Right 07/07/2017 ENDOSCOPIC HARVEST VEIN(S) FOR CABG (WRVU 0.31) performed by Yuan Retana MD at [facility] MAIN OR ??? 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 Vascular resident technical assistance consultant and will forward result to the team prior to rounds. 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 Patient [...] SETUP performed by Manny Mcknight MD at [facility] MAIN OR ??? PRO CABG, ARTERIAL, SINGLE N/A 07/07/2017 @CABG, USING ARTERIAL GRAFT;SINGLE ARTERIAL GRAFT (WRVU 33.75) performed by Yuan Retana MD at [facility] MAIN OR ??? PRO CABG, ARTERY-VEIN, TWO N/A 07/07/2017 @CABG, TWO VENOUS GRAFTS & ARTERIAL GRAFT (WRVU 7.93) performed by Yuan Retana MD at [facility] MAIN OR ??? PRO COLONOSCOPY, REMV LESN, SNARE 01/16/2014 COLONOSCOPY, POLYPECTOMY, REMOVAL LESION BY SNARE performed by Nohemi Jaimes MD at [facility] ENDOSCOPY ??? PRO ENDOSCOPY W/VIDEO-ASST VEIN HARVEST, CABG Right 07/07/2017 ENDOSCOPIC HARVEST VEIN(S) FOR CABG (WRVU 0.31) performed by Yuan Retana MD at [facility] MAIN OR ??? PRO THYROIDECTOMY 03/28/2013 THYROIDECTOMY, TOTAL OR COMPLETE performed by Manny Mcknight MD at [facility] MAIN OR Functional Status/Social Hx: [...] left blue toes with CTA showing R CITRUS PEELER pseudoaneurysm (now thrombosed) and occluded ATs bilaterally. [...] 2.5x80 5. Completion RLE angiogram 6. L CITRUS PEELER angiogram 7. 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 - L CITRUS PEELER angriogram demonstrated: High femoral bifurcation over the proximal half of the femoral head. L [place]RUS PEELER access in the distal L CITRUS PEELER. - Closure device: Mynx Technical Procedure: The [...] for a 45cm 5F Destination. V18 and [place] and QuickCross catheters were used to select [...] 5F. A stationed picture of the L CITRUS PEELER was performed as the patient was noted to have a very high bifurcation. Access appeared in the distal R [place] PEELER. Closure and sheath removal was performed with [...] PM EST 1440 report called to 5 keyport nurse Tessa AGUSTIN documented in this encounter Miscellaneous Notes Plan of Care - Dory Truong RN - 08/16/2017 10:51 AM EST Problem: Patient Care Overview Goal: Plan of Care Review Outcome: Outcome (s) achieved Date Met: 08/16/17 08/14/17 1939 08/16/17 4651 Coping/Psychosocial Plan Of Care Reviewed With -- patient Plan of Care Review Progress improving -- Discussed discharge instructions with pt and pt's spouse. Discharge to [facility]. Goal: Individualization & Mutuality Outcome: Outcome (s) [...] sit/sit to supine -- Bed Mobility Goal, Pike Level independent -- Bed Mobility Goal, Date [...] days -- Transfer Training Goal, Activity Type foo-xx-kqvhb/ztwyl-gh-tgt -- Transfer Train Goal, Pike Level conditional independence -- Transfer Train Goal, [...] call cabello within reach, Hourly rounding by RN/SUSTAINABLE LANDSCAPE ARCHITECT. Bed alarm / Chair alarm. Patient-specific fall [...] out of bed;fall prevention program maintained;activity supervised Amrk Fall Risk History of Falling 25 -- [...] MD - 08/15/2017 6:28 PM EST [facility] Operative Note Patient Name: Gregory Hoang : [id number] MR#: [id number] Case Date: 08/09/2017 Surgeon: Surgeon(s) and Role: [...] 2.5x80 5. Completion RLE angiogram 6. L CITRUS PEELER angiogram 7. Mynx closure Precautions/Restrictions: fall, sternal [...] feet/ bed -> bathroom). Anticipated Discharge Disposition: [facility] facility, other (see comments) (or swing bed) Pager: [phone] BASSAM ELIAS, PT 08/14/2017 Inpatient Physical Therapy [...] to Achieve by discharge Gait Training Goal, Pike Level conditional independence;set up required Gait Training [...] these facilities over the weekend except for [facility]. CM spoke with [facility] KANWAL Sandhu RN who said that they do not anticipate any beds over the weekend. Reviewed with patient/ that they need to be aware that patient will need to take the first bed offered at the facilities that they make referrals to. Their choices are: 1- [facility] PHONE: [phone] FAX: [phone] 2- [facility] ([facility]) [address] [place] [address] 3- [facility]) [address] [place] [address] I have discussed Medicare/Private Insurance [...] RS/CM on Wednesday to follow-up. Covering pager #[phone] for today. Plan of Care - Henrique [...] with additional findings of pseudoaneurysm on R CITRUS PEELER and bilateral anterior tibial artery occlusions. Was [...] an outpatient once discharged. Have patient call [phone] to set up an appointment. Follow-up: Dermatology will sign-off for now. Please do not hesitate to contact us if you have any questions orconcerns. Impression and Recommendations discussed with primary team on 08/13/2017. Karo Henderson MD Resident in Dermatology Section of Dermatology, Department of Surgery [facility] Pager [phone] Patient seen and evaluated with staff Lamination Operator: Halima Cordero MD Section of Dermatology [facility] [...] 2.5x80 5. Completion RLE angiogram 6. L CITRUS PEELER angiogram 7. Mynx closure Active Non-Hospital Problems [...] home with home health ([facility] PT&OT) Pager: [phone] YASIR TELLO OT 08/12/2017 Occupational Therapy Rehabilitation [...] 2.5x80 5. Completion RLE angiogram 6. L CITRUS PEELER angiogram 7. Mynx closure Past Medical History: [...] with 24/7 assistance and maximal services) Pager: [phone] NICHOLAS MORA, JESSIE 08/12/2017 Physical Therapy Rehabilitation [...] sit/sit to supine -- Bed Mobility Goal, Pike Level independent -- Bed Mobility Goal, Outcome Achieved -- goal ongoing Goal: Gait Training Goal Stand Alone Therapy Goal Outcome: Ongoing (Interventions Implemented as Appropriate) 08/11/17 1310 08/12/17 1510 Gait Training Goal Gait Training Goal, Date Established 08/11/17 -- Gait Training Goal, Time to Achieve 5 - 7 days -- Gait Training Goal, Pike Level conditional independence -- Gait Training Goal, [...] days -- Transfer Training Goal, Activity Type kxi-jr-dbaxw/jessp-vr-yus -- Transfer Train Goal, Pike Level conditional independence -- Transfer Training Goal, [...] MD - 08/11/2017 2:52 PM EST [facility] Operative Note Patient Name: Gregory Hoang : [id number] MR#: [id number] Case Date: 08/11/2017 Surgeon: Surgeon(s) and Role: [...] 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 Completion RLE angiogram 6. L CITRUS PEELER angiogram 7. Mynx closure He is very [...] Anticipated Discharge Disposition: inpatient rehabilitation facility Pager: [phone] LAWRENCE GONZALEZ, PT 08/11/2017 Physical Therapy Rehabilitation [...] to sit/sit to supine Bed Mobility Goal, Pike Level independent Goal: Gait Training Goal Stand Alone Therapy Goal Outcome: Ongoing (Interventions Implemented as Appropriate) 08/11/17 1310 Gait Training Goal Gait Training Goal, Date Established 08/11/17 Gait Training Goal, Time to Achieve 5 - 7 days Gait Training Goal, Pike Level conditional independence Gait Training Goal, Assist [...] 7 days Transfer Training Goal, Activity Type qjh-uv-qrrlw/kpjiq-or-ely Transfer Train Goal, Pike Level conditional independence Plan of Care - [...] call cabello within reach, Hourly rounding by RN/SUSTAINABLE LANDSCAPE ARCHITECT. Bed alarm / Chair alarm. ? Patient-specific [...] Hospitalizations Within the Past 30 Days: [facility] 07/20/2017 Anticipated Length Of Stay (If known): Expected Length of Hospitalization: 5-7 days2-3 days Current Decision-Making Capacity: Alert and oriented x 4 Advance Care Planning: on file Kisha Hoang [facility] [phone] Current Coping/Education/Information Needs: pt and spouse state [...] Health/Prescription Coverage: Primary Insurance: MEDICARE Secondary Insurance: [employer] [place] Prescription Coverage: See above [facility]erred [facility]acy: [facility] Other: N/A Primary Care Provider: Lovely Vicente MD [phone] Patient/Caregiver Goals of Treatment: Patient plans to return home when medically ready Potential Needs for Transition of Care: Rehab/SNF: N/A Home Health: [facility]. DME: pt has a cane [...] of care planning. Kaitlin Saha RN Pager: [phone] Plan of Care - Melba Jaramillo RN [...] Overview Goal: Plan of Care Review 08/08/17 3704 Coping/Psychosocial Plan Of Care Reviewed With patient [...] call cabello within reach, Hourly rounding by RN/SUSTAINABLE LANDSCAPE ARCHITECT. Bed alarm / Chair alarm. Patient-specific fall [...] at bedside and MD TEAM Carrying pager [phone] contacted (via Radio page) and notified of [...] MD [facility] CARDIOLOGY [place], [place] 0375 (Wo rk) 06/10/2022 Office Visit Dermatology Laura Scherer MD [facility] DR TEJA GR-DERMAT OLOGY [place], [place] 0375 (Wo rk) documented as of [...] AND SCREEN Routine 08/09/2017 1:10 AM ([facility]/SHANDA) EST BASIC METABOLIC PANEL Routine 08/09/2017 1:10 [...] Signature POC Glucose 160 65 - 199 [facility] mg/dL [facility] [...] City/State/[place] [address] (ABNORMAL) Differential, Automated (08/16/2017 5:08 AM EST) Patholo gist Method Time Signature Neutrophils % 73.9 % [facility] Neutr Abs (ANC) 5.37 1.70 - [facility] 6.10 [place] x10(3)/[facility] LABORATORY Lymphocytes % 10.1 % [facility] Lymphocytes Abs 0.7 (L) 0.9 - 3.2 [facility] x10(3)/[facility] LABORATORY Monocytes % 10.1 % [facility] Monocyte Abs 0.7 0.3 - 0.9 [facility] x10(3)/[facility] LABORATORY Eosinophils % 5.1 % [facility] Eosinophils Abs 0.4 0.0 - 0.4 [facility] x10(3)/[facility] LABORATORY Basophils % 0.4 % [facility] Basophils Abs 0.0 0.0 - 0.1 [facility] x10(3)/[facility] LABORATORY Immature Gran % 0.40 % [...] Melisa Gran Abs 0.03 0.00 - 0.04 x10(3)/[facility] LABORATORY Specimen Anatomical Collection Method Collection Time Receive d Time (Source) Location / / Volume Laterality Blood specimen 08/16/2017 5:08 AM 018 5:20 (specimen) EST AM EST Resulting Agency Comment Spec In Lab Yonathan Smith MD HEMATOLOGY ORDERABLES Performing Organization Address City/State/[place] [address] (ABNORMAL) Hemogram (08/16/2017 5:08 AM EST) Analysis Performed At Patho logist Time Signature WBC 7.3 4.0 - 9.5 [facility] x10(3)/[facility] LABORATORY RBC 3.36 (L) 4.58 - [facility] 5.54 [place] x10(6)/[facility] LABORATORY Hemoglobin 9.7 (L) 13.7 - [facility] 16.5 gm/dL [facility] LABORATORY Hematocrit 30.3 (L) 40.5 - [facility] 48.5 % [facility] LABORATORY MCV 90.2 82.9 - [facility].1 [facility] LABORATORY MCH 28.9 27.5 - [facility]AN 32.1 pg [facility] LABORATORY MCHC 32.0 32.0 - [facility] 35.7 gm/dL [facility] LABORATORY Platelets 282 145 - 357 [facility] x10(3)/[facility] LABORATORY RDWSD 53.9 (H) 36.0 - [facility] 45.0 [facility] LABORATORY RDWCV 16.5 (H) 11.4 - [facility] 13.8 % [facility] LABORATORY MPV 9.0 7.6 - 12.9 [facility] LABORATORY nRBC % Auto 0.0 % [facility] LAB[facility]ORY nRBC Abs Auto 0.000 0.000 - [facility] 0.000 [place] x10(3)/[facility] LABORATORY Specimen Anatomical Collection Method Collection Time Receive d Time (Source) Location / / Volume Laterality Blood specimen 08/16/2017 5:08 AM 018 5:20 (specimen) EST AM EST Resulting Agency Comment Spec In Lab Yonathan Smith MD HEMATOLOGY ORDERABLES Performing Organization Address City/State/[place] [address] (ABNORMAL) Basic Metabolic Panel (non-fasting) (08/16/2017 5:08 AM EST) athologist Signature Glucose Lvl 141 65 - 199 [facility] mg/dL [facility] [...] or in patients with acute kidney failure. [email or web address] Specimen Anatomical Collection Method Collection Time Receive d Time (Source) Location / / Volume Laterality Blood specimen 08/16/2017 5:08 AM 018 5:20 (specimen) EST AM EST Resulting Agency Comment Spec In Lab Yonathan Smith MD CHEMISTRY ORDERABLES Performing Organization Address City/State/[place] [address] (ABNORMAL) Prothrombin Time (08/16/2017 [...] Smith MD HEMATOLOGY ORDERABLES Performing Organization Address City/[facility]/ZIP Code Phon e Number [address] POCT Glucose (08/16/2017 4:09 AM EST) athologist Signature POC Glucose 147 65 - 199 [place] mg/dL [facility] [...] City/[facility]/[place] [address] POCT Glucose (08/15/2017 11:56 PM EST) athologist Signature POC Glucose 176 65 - 199 [place] mg/dL [facility] [...] Organization Address City/State/[place] [address] POCT Glucose (08/15/2017 8:05 PM EST) athologist Signature POC Glucose 136 65 - 199 [place] mg/dL [facility] [...] Address City/State/ZIP Code Phon e Number [address] (ABNORMAL) POCT Glucose (08/15/2017 4:50 PM EST) athologist Signature POC Glucose 232 (H) 65 - 199 [place] ZHAORYAN mg/dL [facility] [...] City/[facility]/[place] [address] POCT Glucose (08/15/2017 12:04 PM EST) athologist Signature POC Glucose 135 65 - 199 [place] ZHAORYAN mg/dL [facility] [...] City/[facility]/[place] [address] POCT Glucose (08/15/2017 7:36 AM EST) athologist Signature POC Glucose 124 65 - 199 [place] mg/dL [facility] [...] City/State/[place] [address] (ABNORMAL) Differential, Automated (08/15/2017 6:22 AM EST) [facility] Method Time Signature Neutrophils % 76.1 % [facility] LABORATORY Neutr Abs (ANC) 6.62 (H) 1.70 - [facility] 6.10 [place] x10(3)/[facility] L LABORATORY Lymphocytes % 9.3 % [facility] LABORATORY Lymphocytes Abs 0.8 (L) 0.9 - 3.2 [facility] x10(3)/[facility] LABORATORY Monocytes % 9.4 % [facility] LABORATORY Monocyte Abs 0.8 0.3 - 0.9 [facility] x10(3)/[facility] LABORATORY Eosinophils % 4.0 % [facility] LABORATORY Eosinophils Abs 0.4 0.0 - 0.4 [facility] x10(3)/[facility] LABORATORY Basophils % 0.6 % [facility] LABORATORY Basophils Abs 0.0 0.0 - 0.1 [facility] x10(3)/[facility] LABORATORY Immature Gran [...] Gran Abs 0.05 (H) 0.00 - 0.04 x10(3)/[facility] LABORATORY Specimen Anatomical Collection Method Collection Time Receive d Time (Source) Location / / Volume Laterality Blood specimen 08/15/2017 6:22 AM 018 6:33 (specimen) EST AM EST Resulting Agency Comment Spec In Lab Yonathan Smith MD HEMATOLOGY ORDERABLES Performing Organization Address City/State/[place] [address] (ABNORMAL) Hemogram (08/15/2017 6:22 AM EST) Analysis Performed At Patho logist Time Signature WBC 8.7 4.0 - 9.5 [place] x10(3)/[facility] LABORATORY RBC 3.21 (L) 4.58 - [facility] RYAN 5.54 [place] x10(6)/[facility] LABORATORY Hemoglobin 9.1 (L) 13.7 - [facility] 16.[facility]m/dL [facility] LABORATORY Hematocrit 29.0 (L) 40.5 - [facility] 48.5 % [facility] LABORATORY MCV 90.3 82.9 - [facility] 93.1 [facility] LABORATORY MCH 28.3 27.5 - [place] 32.1 pg [facility] LABORATORY MCHC 31.4 (L) 32.0 - [place] R[facility] 35.7 gm/dL [facility] LABORATORY Platelets 254 145 - 357 [facility] x10(3)/[facility] LABORATORY RDWSD 53.9 (H) 36.0 - [place] R[place] 45.0 [facility] LABORATORY RDWCV 16.3 (H) 11.4 - [facility] RYAN 13.8 % [facility] LABORATORY MPV 8.8 7.6 - 12.9 [facility] LABORATORY nRBC % Auto 0.0 % [facility] LABORATORY nRBC Abs Auto 0.000 0.000 - [place] 0.000 [place] x10(3)/[facility] LABORATORY Specimen Anatomical Collection Method Collection Time Receive d Time (Source) Location / / Volume Laterality Blood specimen 08/15/2017 6:22 AM 018 6:33 (specimen) EST AM EST Resulting Agency Comment Spec In Lab Yonathan Smith MD HEMATOLOGY ORDERABLES Performing Organization Address City/State/[place] [address] (ABNORMAL) Basic Metabolic Panel (non-fasting) (08/15/2017 6:22 AM EST) P athologist Signature Glucose Lvl 118 65 - 199 [facility] mg/dL [facility] Estimated GFR >60 >=60 [facility] LABORATORY Comment: The reported eGFR should be multiplied b y 1.2 for patients. The MDRD is not an appropriate measure o f renal function for patients with body mass extremes or in patients with acute kidney failure. [email or web address] [email or web address] Specimen Anatomical Collection Method Collection Time Receive d Time (Source) Location / / Volume Laterality Blood specimen 08/15/2017 6:22 AM 018 6:33 (specimen) EST AM EST Resulting Agency Comment Spec In Lab Yonathan Smith MD CHEMISTRY ORDERABLES Performing Organization Address City/State/[place] [address] (ABNORMAL) Prothrombin Time (08/15/2017 [...] Address City/State/ZIP Code Phon e Number [address] POCT Glucose (08/15/2017 4:33 AM EST) athologist Signature POC Glucose 164 65 - 199 [facility] [...] Organization Address City/State/[place] [address] POCT Glucose (08/15/2017 12:12 AM EST) athologist Signature POC Glucose 89 65 - 199 [facility] mg/dL [facility] [...] Organization Address City/State/[place] [address] (ABNORMAL) POCT Glucose (08/14/2017 8:07 PM EST) athologist Signature POC Glucose 204 (H) 65 - 199 [place] ZHAORYAN mg/dL [facility] [...] Address City/State/ZIP Code Phon e Number [address] POCT Glucose (08/14/2017 5:11 PM EST) athologist Signature POC Glucose 174 65 - 199 [facility] [...] Address City/State/ZIP Code Phon e Number [address] POCT Glucose (08/14/2017 12:10 PM EST) athologist Signature POC Glucose 141 65 - 199 [facility] mg/dL [facility] [...] Address City/State/ZIP Code Phon e Number [address] POCT Glucose (08/14/2017 8:07 AM EST) P athologist Signature POC Glucose 158 65 - 199 [facility] mg/dL [facility] [...] City/State/[place] [address] (ABNORMAL) Differential, Automated (08/14/2017 4:52 AM EST) Patholo gist Method Time Signature Neutrophils % 78.6 % [facility] LABORATORY Neutr Abs (ANC) 7.70 (H) 1.70 - [facility] 6.10 [place] x10(3)/[facility] L LABORATORY Lymphocytes % 7.8 % [facility] LABORATORY Lymphocytes Abs 0.8 (L) 0.9 - 3.2 [facility] x10(3)/[facility] LABORATORY Monocytes % 8.8 % [facility] LABORATORY Monocyte Abs 0.9 0.3 - 0.9 [facility] x10(3)/[facility] LABORATORY Eosinophils % 4.0 % [facility] LABORATORY Eosinophils Abs 0.4 0.0 - 0.4 [facility] x10(3)/[facility] LABORATORY Basophils % 0.5 % [facility] LABORATORY Basophils Abs 0.0 0.0 - 0.1 [facility] x10(3)/[facility] LABORATORY Immature Gran [...] Melisa Gran Abs 0.03 0.00 - 0.04 x10(3)/[facility] LABORATORY Specimen Anatomical Collection Method Collection Time Receive d Time (Source) Location / / Volume Laterality Blood specimen 08/14/2017 4:52 AM 018 5:08 (specimen) EST AM EST Resulting Agency Comment Spec In Lab Yonathan Smith MD HEMATOLOGY ORDERABLES Performing Organization Address City/State/[place] [address] (ABNORMAL) Hemogram (08/14/2017 4:52 AM EST) Analysis Performed At Patho logist Time Signature WBC 9.8 (H) 4.0 - 9.5 [facility] x10(3)/[facility] LABORATORY RBC 3.32 (L) 4.58 - [facility] 5.54 [place] x10(6)/[facility] LABORATORY Hemoglobin 9.5 (L) 13.7 - [facility] 16.5 gm/dL [facility] LABORATORY Hematocrit 30.3 (L) 40.5 - [facility] 48.5 % [facility] LABORATORY MCV 91.3 82.9 - [facility] 93.1 [facility] LABORATORY MCH 28.6 27.5 - [facility] 32.1 pg [facility] LABORATORY MCHC 31.4 (L) 32.0 - [facility]/dL [facility] LABORATORY Platelets 263 145 - 357 [facility] x10(3)/[facility] LABORATORY RDWSD 54.8 (H) 36.0 - [facility] 45.0 [facility] LABORATORY RDWCV 16.5 (H) 11.4 - [facility] 13.8 % [facility] LABORATORY MPV 9.1 7.6 - 12.9 [facility] LABORATORY nRBC % Auto 0.0 % [facility] LABORATORY nRBC Abs Auto 0.000 0.000 - [facility] [place] x10(3)/[facility] LABORATORY Specimen Anatomical Collection Method Collection Time Receive d Time (Source) Location / / Volume Laterality Blood specimen 08/14/2017 4:52 AM 018 5:08 (specimen) EST AM EST Resulting Agency Comment Spec In Lab Yonathan Smith MD HEMATOLOGY ORDERABLES Performing Organization Address City/[facility]/[place] [address] (ABNORMAL) Prothrombin Time (08/14/2017 [...] Organization Address City/State/[place] [address] (ABNORMAL) Basic Metabolic Panel (non-fasting) (08/14/2017 4:52 AM EST) P athologist Signature Glucose Lvl 135 65 - 199 [facility] mg/dL [facility] [...] or in patients with acute kidney failure. [email or web address] [email or web address] Specimen Anatomical Collection Method Collection Time Receive d Time (Source) Location / / Volume Laterality Blood specimen 08/14/2017 4:52 AM 018 5:08 (specimen) EST AM EST Resulting Agency Comment Spec In Lab Yonathan Smith MD CHEMISTRY ORDERABLES Performing Organization Address City/[facility]/ZIP Code Phon e Number [address] POCT Glucose (08/14/2017 3:56 AM EST) athologist Signature POC Glucose 135 65 - 199 [facility]/dL [facility] [...] City/[facility]/ZIP Code Phon e Number [address] POCT Glucose (08/13/2017 11:13 PM EST) athologist Signature POC Glucose 118 65 - 199 [facility] mg/dL [facility] [...] Organization Address City/State/[place] [address] (ABNORMAL) POCT Glucose (08/13/2017 8:08 PM EST) athologist Signature POC Glucose 204 (H) 65 - 199 [place] mg/dL [facility] [...] City/[facility]/[place] [address] POCT Glucose (08/13/2017 4:02 PM EST) athologist Signature POC Glucose 145 65 - 199 [place] ZHAORYAN mg/dL [facility] [...] Organization Address City/State/[place] [address] POCT Glucose (08/13/2017 11:31 AM EST) athologist Signature POC Glucose 179 65 - 199 [place] mg/dL [facility] [...] City/[facility]/[place] [address] (ABNORMAL) POCT Glucose (08/13/2017 10:16 AM EST) P athologist Signature POC Glucose 211 (H) 65 - 199 [facility] mg/dL [facility] [...] Organization Address City/State/[place] [address] JULIAN, legs, multiple levels (08/13/2017 7:42 AM EST) Component Value Ref Test Analysis Performed At Patholo gist Range Method Time Signature VB Text Department: Vascular Surgery Lab VASCUBASE Report Patient: [id number] (GREGORY HOANG) CPT: 48037 ICD10: I99.8 Referring Physician: YONATHAN SMITH ?? Indications: s/p R 1,2,3 toe amps with red left foot, need n ew baseline Diabetes mellitus: yes ICD10 Diagnosis Code: I99.8 Findings: Right ?Pressure (mm Hg) ?? JULIAN ??Waveform ?TBI ?? Brachial Artery ?138 ? Dorsalis Pedis (Ankle) Arter y ?132 ? 0.94 ??[place]- Biphasic ? Posterior Tibial (Ankle) Art anila ??154 ? 1.10 ??[place]-Biphasic ? Fourth Toe ? 67 ? 0.48 [...] Signature POC Glucose 156 65 - 199 [facility] mg/dL [facility] City/State/[place] [address] (ABNORMAL) Differential, Automated (08/13/2017 5:33 AM EST) Patholo gist Method Time Signature Neutrophils % 77.8 % [facility] LABORATORY Neutr Abs (ANC) 7.83 (H) 1.70 - [facility] 6.10 [place] x10(3)/[facility] L LABORATORY Lymphocytes % 8.4 % [facility] LABORATORY Lymphocytes Abs 0.8 (L) 0.9 - 3.2 [facility] x10(3)/[facility] LABORATORY Monocytes % 8.3 % [facility] LABORATORY Monocyte Abs 0.8 0.3 - 0.9 [facility] x10(3)/[facility] LABORATORY Eosinophils % 4.6 % [facility] LABORATORY Eosinophils Abs 0.5 (H) 0.0 - 0.4 [facility] x10(3)/[facility] LABORATORY Basophils % 0.5 % [facility] LABORATORY Basophils Abs 0.0 0.0 - 0.1 [facility] x10(3)/[facility] LABORATORY Immature Gran [...] Melisa Gran Abs 0.04 0.00 - 0.04 x10(3)/[facility] LABORATORY Specimen Anatomical Collection Method Collection Time Receive d Time (Source) Location / / Volume Laterality Blood specimen 08/13/2017 5:33 AM 018 6:04 (specimen) EST AM EST Resulting Agency Comment Spec In Lab Yonathan Smith MD HEMATOLOGY ORDERABLES Performing Organization Address City/State/[place] [address] (ABNORMAL) Hemogram (08/13/2017 5:33 AM EST) Analysis Performed At Patho logist Time Signature WBC 10.1 (H) 4.0 - 9.5 [facility] x10(3)/[facility] LABORATORY RBC 3.21 (L) 4.58 - [facility] 5.54 [place] x10(6)/[facility] LABORATORY Hemoglobin 9.2 (L) 13.7 - [facility] 16.5 gm/dL [facility] LABORATORY Hematocrit 29.6 (L) 40.5 - [facility] DAVIS 48.5 % [facility] LABORATORY MCV 92.2 82.9 - [facility] 93.1 [facility] LABORATORY MCH 28.7 27.5 - [facility] 32.1 pg [facility] LABORATORY MCHC 31.1 (L) 32.0 - [facility] 35.7 gm/dL [facility] LABORATORY Platelets 263 145 - 357 [facility] x10(3)/[facility] LABORATORY RDWSD 54.8 (H) 36.0 - [facility] RYAN 45.0 [facility] LABORATORY RDWCV 16.4 (H) 11.4 - [facility] RYAN 13.8 % [facility] LABORATORY MPV 9.2 7.6 - 12.9 [facility] LABORATORY nRBC % Auto 0.0 % [facility] LABORATORY nRBC Abs Auto 0.000 0.000 - [facility] RYAN 0.000 [place] x10(3)/[facility] LABORATORY Specimen Anatomical Collection Method Collection Time Receive d Time (Source) Location / / Volume Laterality Blood specimen 08/13/2017 5:33 AM 018 6:04 (specimen) EST AM EST Resulting Agency Comment Spec In Lab Yonathan Smith MD HEMATOLOGY ORDERABLES Performing Organization Address City/State/[place] [address] (ABNORMAL) Prothrombin Time (08/13/2017 [...] City/State/[place] [address] (ABNORMAL) Basic Metabolic Panel (non-fasting) (08/13/2017 5:33 AM EST) athologist Signature Glucose Lvl 126 65 - 199 [facility] mg/dL [facility] Estimated GFR >60 >=60 [facility] LABORATORY Comment: The reported eGFR should be multiplied b y 1.2 for patients. The MDRD is not an appropriate measure o f renal function for patients with body mass extremes or in patients with acute kidney failure. [email or web address] [email or web address] Specimen Anatomical Collection Method Collection Time Receive d Time (Source) Location / / Volume Laterality Blood specimen 08/13/2017 5:33 AM 018 6:04 (specimen) EST AM EST Resulting Agency Comment Spec In Lab Yonathan Smith MD CHEMISTRY ORDERABLES Performing Organization Address City/[facility]/ZIP Code Phon e Number [address] POCT Glucose (08/13/2017 4:29 AM EST) athologist Signature POC Glucose 111 65 - 199 [facility] mg/dL [facility] [...] City/[facility]/[place] [address] POCT Glucose (08/12/2017 11:28 PM EST) athologist Signature POC Glucose 164 65 - 199 [facility] mg/dL [facility] [...] City/[facility]/[place] [address] (ABNORMAL) POCT Glucose (08/12/2017 7:40 PM EST) athologist Signature POC Glucose 209 (H) 65 - 199 [facility] mg/dL [facility] [...] City/[facility]/ZIP Code Phon e Number [address] POCT Glucose (08/12/2017 4:24 PM EST) athologist Signature POC Glucose 161 65 - 199 [facility]HAORYAN mg/dL [facility] [...] City/[facility]/ZIP Code Phon e Number [address] POCT Glucose (08/12/2017 12:00 PM EST) athologist Signature POC Glucose 167 65 - 199 [facility] mg/dL [facility] [...] City/[facility]/ZIP Code Phon e Number [address] POCT Glucose (08/12/2017 7:25 AM EST) athologist Signature POC Glucose 152 65 - 199 [facility] mg/dL [facility] [...] City/State/[place] [address] (ABNORMAL) Differential, Automated (08/12/2017 6:29 AM EST) [facility] Method Time Signature Neutrophils % 78.7 % [facility] LABORATORY Neutr Abs (ANC) 7.94 (H) 1.70 - [facility] 6.10 [place] x10(3)/[facility] LABORATORY Lymphocytes % 8.8 % [facility] LABORATORY Lymphocytes Abs 0.9 0.9 - 3.2 [facility] x10(3)/[facility] LABORATORY Monocytes % 7.8 % [facility] LABORATORY Monocyte Abs 0.8 0.3 - 0.9 [facility] x10(3)/[facility] LABORATORY Eosinophils % 3.9 % [facility] LABORATORY Eosinophils Abs 0.4 0.0 - 0.4 [facility] x10(3)/[facility] LABORATORY Basophils % 0.3 % [facility] LABORATORY Basophils Abs 0.0 0.0 - 0.1 [facility] x10(3)/[facility] LABORATORY Immature Gran [...] Gran Abs 0.05 (H) 0.00 - 0.04 x10(3)/[facility] LABORATORY Specimen Anatomical Collection Method Collection Time Receive d Time (Source) Location / / Volume Laterality Blood specimen 08/12/2017 6:29 AM 018 6:38 (specimen) EST AM EST Resulting Agency Comment Spec In Lab Yonathan Smith MD HEMATOLOGY ORDERABLES Performing Organization Address City/[facility]/[place] [address] (ABNORMAL) Hemogram (08/12/2017 6:29 AM EST) Analysis Performed At Patho logist Time Signature WBC 10.1 (H) 4.0 - 9.5 [facility] x10(3)/[facility] LABORATORY RBC 3.02 (L) 4.58 - [facility] 5.54 [place] x10(6)/[facility] LABORATORY Hemoglobin 8.7 (L) 13.7 - [facility] 16.5 gm/dL [facility] LABORATORY Hematocrit 28.1 (L) 40.5 - [facility] 48.5 % [facility] LABORATORY MCV 93.0 82.9 [facility] LABORATORY MCH 28.8 27.5 - [facility] 32.1 pg [facility] LABORATORY MCHC 31.0 (L) 32.0 - [facility] 35.7 gm/dL [facility] LABORATORY Platelets 223 145 - 357 [facility] x10(3)/[facility] LABORATORY RDWSD 56.1 (H) 36.0 - [facility] 45.0 [facility] LABORATORY RDWCV 16.4 (H) 11.4 - [facility] 13.8 % [facility] LABORATORY MPV 9.0 7.6 - 12.9 [facility] LABORATORY nRBC % Auto 0.0 % [facility] LABORATORY nRBC Abs Auto 0.000 0.000 - [facility] 0.000 [place] x10(3)/[facility] LABORATORY Specimen Anatomical Collection Method Collection Time Receive d Time (Source) Location / / Volume Laterality Blood specimen 08/12/2017 6:29 AM 018 6:38 (specimen) EST AM EST Resulting Agency Comment Spec In Lab Yonathan Smith MD HEMATOLOGY ORDERABLES Performing Organization Address City/State/[place] [address] (ABNORMAL) Prothrombin Time (08/12/2017 [...] City/State/ZIP Code Phon e Number [place] [id number] (ABNORMAL) Basic Metabolic Panel (non-fasting) (08/12/2017 6:29 AM EST) athologist Signature Glucose Lvl 151 65 - 199 [facility] mg/dL [facility] Estimated GFR >60 >=60 [facility] LABORATORY Comment: The reported eGFR should be multiplied b y 1.2 for patients. The MDRD is not an appropriate measure o f renal function for patients with body mass extremes or in patients with acute kidney failure. [email or web address] [email or web address] Specimen Anatomical Collection Method Collection Time Receive d Time (Source) Location / / Volume Laterality Blood specimen 08/12/2017 6:29 AM 018 6:38 (specimen) EST AM EST Resulting Agency Comment Spec In Lab Yonathan Smith MD CHEMISTRY ORDERABLES Performing Organization Address City/[facility]/ZIP [facility] Phon e Number [address] POCT Glucose (08/12/2017 4:08 AM EST) athologist Signature POC Glucose 181 65 - 199 [facility] mg/dL [facility] City/[facility]/[place] [address] (ABNORMAL) POCT Glucose (08/12/2017 12:17 AM EST) athologist Signature POC Glucose 221 (H) 65 - 199 [facility] mg/dL [facility] [...] City/[facility]/[place] [address] (ABNORMAL) POCT Glucose (08/11/2017 8:52 PM EST) athologist Signature POC Glucose 221 (H) 65 - 199 [facility] mg/dL [facility] [...] Organization Address City/State/[place] [address] POCT Glucose (08/11/2017 5:59 PM EST) athologist Signature POC Glucose 169 65 - 199 [facility] mg/dL [facility] [...] City/[facility]/[place] [address] (ABNORMAL) POCT Glucose (08/11/2017 4:08 PM EST) athologist Signature POC Glucose 240 (H) 65 - 199 [facility] mg/dL [facility] [...] Organization Address City/State/[place] [address] POCT Glucose (08/11/2017 12:04 PM EST) athologist Signature POC Glucose 182 65 - 199 [facility] mg/dL [facility] [...] Address City/State/ZIP Code Phon e Number [address] POCT Glucose (08/11/2017 7:31 AM EST) athologist [facility] POC Glucose 156 65 - 199 [facility] mg/dL [facility] [...] Address City/State/ZIP Code Phon e Number [address] (ABNORMAL) Differential, Automated (08/11/2017 6:16 AM EST) [facility] gist Method Time Signature Neutrophils % 83.7 % [facility] LABORATORY Neutr Abs (ANC) 10.76 (H) 1.70 - [facility] 6.10 [place] x10(3)/[facility] L LABORATORY Lymphocytes % 6.0 % [facility] LABORATORY Lymphocytes Abs 0.8 (L) 0.9 - 3.2 [facility] x10(3)/[facility] LABORATORY Monocytes % 7.5 % [facility] LABORATORY Monocyte Abs 1.0 (H) 0.3 - 0.9 [facility] x10(3)/[facility] LABORATORY Eosinophils % 2.0 % [facility] LABORATORY Eosinophils Abs 0.3 0.0 - 0.4 [facility] x10(3)/[facility] LABORATORY Basophils % 0.3 % [facility] LABORATORY Basophils Abs 0.0 0.0 - 0.1 [facility] x10(3)/[facility] LABORATORY Immature Gran [...] Gran Abs 0.06 (H) 0.00 - 0.04 x10(3)/[facility] LABORATORY Specimen Anatomical Collection Method Collection Time Receive d Time (Source) Location / / Volume Laterality Blood specimen 08/11/2017 6:16 AM 018 6:24 (specimen) EST AM EST Resulting Agency Comment Spec In Lab Yonathan Smith MD HEMATOLOGY ORDERABLES Performing Organization Address City/State/[place] [address] (ABNORMAL) Hemogram (08/11/2017 6:16 AM EST) Analysis Performed At Patho logist Time Signature WBC 12.9 (H) 4.0 - 9.5 [facility] x10(3)/[facility] LABORATORY RBC 3.28 (L) 4.58 - [facility] 5.54 [place] x10(6)/[facility] LABORATORY Hemoglobin 9.5 (L) 13.7 - [facility] 16.5 gm/dL [facility] LABORATORY Hematocrit 29.8 (L) 40.5 - [facility] 48.5 % [facility] LABORATORY MCV 90.9 82.9 - [facility] 93.1 fL [facility] LABORATORY MCH 29.0 27.5 - [facility] 32.1 pg [facility] LABORATORY MCHC 31.9 (L) 32.0 - [facility] 35.7 gm/dL [facility] LABORATORY Platelets 236 145 - 357 [facility] x10(3)/[facility] LABORATORY RDWSD 53.5 (H) 36.0 - [facility] 45.0 [facility] LABORATORY RDWCV 16.3 (H) 11.4 - [facility] 13.8 % [facility] LABORATORY MPV 8.8 7.6 - 12.9 [facility] LABORATORY nRBC % Auto 0.0 % [facility] LABORATORY nRBC Abs Auto 0.000 0.000 - [facility] 0.000 [place] x10(3)/[facility] LABORATORY Specimen Anatomical Collection Method Collection Time Receive d Time (Source) Location / / Volume Laterality Blood specimen 08/11/2017 6:16 AM 018 6:24 (specimen) EST AM EST Resulting Agency Comment Spec In Lab Yonathan Smith MD HEMATOLOGY ORDERABLES Performing Organization Address City/[facility] [place] [address] (ABNORMAL) Prothrombin Time (08/11/2017 [...] Smith MD HEMATOLOGY ORDERABLES Performing Organization Address City/[facility]/ZIP [facility] [place] [address] Basic Metabolic Panel (non-fasting) (08/11/2017 6:16 AM EST) P athologist Signature Glucose Lvl 139 65 - 199 [facility] mg/dL [facility] Estimated GFR >60 >=60 [facility] LABORATORY Comment: The reported eGFR should be multiplied b y 1.2 for patients. The MDRD is not an appropriate measure o f renal function for patients with body mass extremes or in patients with acute kidney failure. http://[employer]/DHnkdep http://[employer]/DHMCnkf Specimen Anatomical Collection Method Collection Time Receive d Time (Source) Location / / Volume Laterality Blood specimen 08/11/2017 6:16 AM 018 6:24 (specimen) EST AM EST Resulting Agency Comment Spec In Lab Yonathan Smith MD CHEMISTRY ORDERABLES Performing Organization Address City/State/[place] [address] POCT Glucose (08/11/2017 4:07 AM EST) athologist Signature POC Glucose 162 65 - 199 [facility] mg/dL [facility] City/[facility]/[place] [address] POCT Glucose (08/10/2017 11:59 PM EST) athologist Signature POC Glucose 166 65 - 199 [facility] mg/dL [facility] [...] Address City/State/ZIP Code Phon e Number [address] POCT Glucose (08/10/2017 8:12 PM EST) athologist Signature POC Glucose 156 65 - 199 [facility] mg/dL [facility] [...] Organization Address City/State/[place] [address] (ABNORMAL) POCT Glucose (08/10/2017 4:42 PM EST) athologist Signature POC Glucose 211 (H) 65 - 199 [facility] mg/dL [facility] [...] City/State/ZIP Code Phon e Number [place] [id number]OS[address] LAB[address]ORY Drive (ABNORMAL) Differential, Automated (08/10/2017 2:30 PM EST) [facility] Method Time Signature Neutrophils % 87.6 % [facility] LABORATORY Neutr Abs (ANC) 9.90 (H) 1.70 - [facility] 6.10 [place] x10(3)/[facility] L LABORATORY Lymphocytes % 4.3 % [facility] LABORATORY Lymphocytes Abs 0.5 (L) 0.9 - 3.2 [facility] x10(3)/[facility] LABORATORY Monocytes % 6.0 % [facility] LABORATORY Monocyte Abs 0.7 0.3 - 0.9 [facility] x10(3)/[facility] LABORATORY Eosinophils % 1.1 % [facility] LABORATORY Eosinophils Abs 0.1 0.0 - 0.4 [facility] x10(3)/[facility] LABORATORY Basophils % 0.4 % [facility] LABORATORY Basophils Abs 0.0 0.0 - 0.1 [facility] x10(3)/[facility] LABORATORY Immature Gran [...] Gran Abs 0.07 (H) 0.00 - 0.04 x10(3)/[facility] LABORATORY Specimen Anatomical Collection Method Collection Time Receive d Time (Source) Location / / Volume Laterality Blood specimen 08/10/2017 2:30 PM 018 2:48 (specimen) EST PM EST Resulting Agency Comment Spec In Lab Yonathan Smith MD HEMATOLOGY ORDERABLES Performing Organization Address City/State/ZIP Code Phon e Number [address] (ABNORMAL) Hemogram (08/10/2017 2:30 PM EST) Analysis Performed At Patho logist Time Signature WBC 11.3 (H) 4.0 - 9.5 [facility] x10(3)/[facility] LABORATORY RBC 3.13 (L) 4.58 - [facility] 5.54 [place] x10(6)/[facility] LABORATORY Hemoglobin 8.9 (L) 13.7 - [facility] 16.5 gm/dL [facility] LABORATORY Hematocrit 28.4 (L) 40.5 - [facility] 48.5 % [facility] LABORATORY MCV 90.7 82.9 - [facility] 93.1 [facility] LABORATORY MCH 28.4 27.5 - [facility] 32.1 pg [facility] LABORATORY MCHC 31.3 (L) 32.0 - [facility] 35.7 gm/dL [facility] LABORATORY Platelets 213 145 - 357 [facility] x10(3)/[facility] LABORATORY RDWSD 53.7 (H) 36.0 - [facility] 45.0 [facility] LABORATORY RDWCV 16.4 (H) 11.4 - [facility] 13.8 % [facility] LABORATORY MPV 8.9 7.6 - 12.9 [facility] LABORATORY nRBC % Auto 0.0 % [facility] LABORATORY nRBC Abs Auto 0.000 0.000 - [facility] 0.000 [place] x10(3)/[facility] LABORATORY Specimen Anatomical Collection Method Collection Time Receive d Time (Source) Location / / Volume Laterality Blood specimen 08/10/2017 2:30 PM 018 2:48 (specimen) EST PM EST Resulting Agency Comment Spec In Lab Yonathan Smith MD HEMATOLOGY ORDERABLES Performing Organization Address City/State/[place] [address] (ABNORMAL) POCT Glucose (08/10/2017 1:50 PM EST) athologist Signature POC Glucose 243 (H) 65 - 199 [facility] mg/dL [facility] [...] Address City/State/ZIP Code Phon e Number [address] POCT Glucose (08/10/2017 11:21 AM EST) athologist Signature POC Glucose 156 65 - 199 [facility] mg/dL [facility] Address City/State/ZIP Code Phon e Number [address] (ABNORMAL) Differential, Automated (08/10/2017 10:28 AM EST) [facility] gist Method Time Signature Neutrophils % 85.3 % [facility] LABORATORY Neutr Abs (ANC) 9.43 (H) 1.70 - [facility] 6.10 [place] x10(3)/[facility] L LABORATORY Lymphocytes % 5.5 % [facility] LABORATORY Lymphocytes Abs 0.6 (L) 0.9 - 3.2 [facility] x10(3)/[facility] LABORATORY Monocytes % 5.9 % [facility] LABORATORY Monocyte Abs 0.6 0.3 - 0.9 [facility] x10(3)/[facility] LABORATORY Eosinophils % 2.1 % [facility] LABORATORY Eosinophils Abs 0.2 0.0 - 0.4 [facility] x10(3)/[facility] LABORATORY Basophils % 0.4 % [facility] LABORATORY Basophils Abs 0.0 0.0 - 0.1 [facility] x10(3)/[facility] LABORATORY Immature Gran % 0.80 [...] Gran Abs 0.09 (H) 0.00 - 0.04 x10(3)/[facility] LABORATORY Specimen Anatomical Collection Method Collection Time Receive d Time (Source) Location / / Volume Laterality Blood specimen 08/10/2017 10:28 8 (specimen) AM EST 10:35 AM EST Resulting Agency Comment Spec In Lab Yonathan Smith MD HEMATOLOGY ORDERABLES Performing Organization Address City/State/[place] [address] (ABNORMAL) Hemogram (08/10/2017 10:28 AM EST) Analysis Performed At Patho logist Time Signature WBC 11.0 (H) 4.0 - 9.5 [facility] x10(3)/[facility] LABORATORY RBC 3.02 (L) 4.58 - [facility] 5.54 [place] x10(6)/[facility] LABORATORY Hemoglobin 8.8 (L) 13.7 - [facility] 16.5 gm/dL [facility] LABORATORY Hematocrit 28.1 (L) 40.5 - [facility] 48.5 % [facility] LABORATORY MCV 93.0 82.9 - [facility] 93.1 fL [facility] LABORATORY MCH 29.1 27.5 - [facility] 32.1 pg [facility] LABORATORY MCHC 31.3 (L) 32.0 - [facility] 35.7 gm/dL [facility] LABORATORY Platelets 207 145 - 357 [facility] x10(3)/[facility] LABORATORY RDWSD 55.3 (H) 36.0 - [facility] 45.0 [facility] LABORATORY RDWCV 16.4 (H) 11.4 - [facility] 13.8 % [facility] LABORATORY MPV 9.0 7.6 - 12.9 [facility] LABORATORY nRBC % Auto 0.0 % [facility] nRBC Abs Auto 0.000 0.000 - [facility] 0.000 [place] x10(3)/[facility] LABORATORY Specimen Anatomical Collection Method Collection Time Receive d Time (Source) Location / / Volume Laterality Blood specimen 08/10/2017 10:28 8 (specimen) AM EST 10:35 AM EST Resulting Agency Comment Spec In Lab Yonathan Smith MD HEMATOLOGY ORDERABLES Performing Organization Address City/State/[place] [address] VS Angiogram/intervention (vascular) (08/10/2017 [...] 2.5x80 5. Completion RLE angiogram 6. L [place] angiogram 7. 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 L [place] access in the distal L [place]. - Closure device: Mynx Technical Procedure: ?The [...] for a 45cm 5F Destination. V18 and [place] a nd QuickCross catheters were used to [...] bifurcation. Access appeared in the distal R [place] [facility]. Closure and sheath removal was performed with a Mynx under flouroscopic guidance. Direct pressure was held for 20 minutes. Excell ent hemostasis was achieved. The puncture site was dressed with a dry gau ze and tegaderm. ?Dr. Robel mism, the attending surgeon, was scrubbed and present [...] 2.5x80 5. Completion RLE angiogram 6. L [place] angiogram 7. 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 L [place] access in the distal L [place]. - Closure device: Mynx Technical Procedure: The [...] for a 45cm 5F Destination. V18 and [place] a nd QuickCross catheters were used to [...] bifurcation. Access appeared in the distal R [facility]. Closure and sheath removal was performed with [...] (ABNORMAL) Differential, Automated (08/10/2017 5:50 AM EST) [facility] Method Time Signature Neutrophils % 80.1 % [facility] LABORATORY Neutr Abs (ANC) 9.01 (H) 1.70 - [facility] 6.10 [place] x10(3)/[facility] LABORATORY Lymphocytes % 8.8 % [facility] LABORATORY Lymphocytes Abs 1.0 0.9 - 3.2 [facility] x10(3)/[facility] LABORATORY Monocytes % 8.3 % [facility] LABORATORY Monocyte Abs 0.9 0.3 - 0.9 [facility] x10(3)/[facility] LABORATORY Eosinophils % 2.0 % [facility] LABORATORY Eosinophils Abs 0.2 0.0 - 0.4 [facility] x10(3)/[facility] LABORATORY Basophils % 0.4 % [facility] LABORATORY Basophils Abs 0.0 0.0 - 0.1 [facility] x10(3)/[facility] LABORATORY Immature Gran [...] Gran Abs 0.05 (H) 0.00 - 0.04 x10(3)/[facility] LABORATORY Specimen Anatomical Collection Method Collection Time Receive d Time (Source) Location / / Volume Laterality Blood specimen 08/10/2017 5:50 AM 018 5:59 (specimen) EST AM EST Resulting Agency Comment Spec In Lab Yonathan Smith MD HEMATOLOGY ORDERABLES Performing Organization Address City/State/[place] [address] (ABNORMAL) Hemogram (08/10/2017 5:50 AM EST) Analysis Performed At Patho logist Time Signature WBC 11.3 (H) 4.0 - 9.5 [facility] x10(3)/[facility] LABORATORY RBC 3.15 (L) 4.58 - [facility] 5.54 [place] x10(6)/[facility] LABORATORY Hemoglobin 8.9 (L) 13.7 - [facility] 16.5 gm/dL [facility] LABORATORY Hematocrit 29.0 (L) 40.5 - [facility] 48.5 % [facility] LABORATORY MCV 92.1 82.9 - [facility] 93.1 [facility] LABORATORY MCH 28.3 27.5 - [facility] 32.1 pg [facility] LABORATORY MCHC 30.7 (L) 32.0 - [facility] 35.7 gm/dL [facility] LABORATORY Platelets 231 145 - 357 [facility] x10(3)/[facility] LABORATORY RDWSD 53.9 (H) 36.0 - [facility] 45.0 [facility] LABORATORY RDWCV 16.2 (H) 11.4 - [facility] 13.8 % [facility] LABORATORY MPV 8.7 7.6 - 12.9 [facility] LABORATORY nRBC % Auto 0.0 % [facility] LABORATORY nRBC Abs Auto 0.000 0.000 - [facility] 0.000 [place] x10(3)/[facility] LABORATORY Specimen Anatomical Collection Method Collection Time Receive d Time (Source) Location / / Volume Laterality Blood specimen 08/10/2017 5:50 AM 018 5:59 (specimen) EST AM EST Resulting Agency Comment Spec In Lab Yonathan Smith MD HEMATOLOGY ORDERABLES Performing Organization Address City/State/[place] [address] (ABNORMAL) Basic Metabolic Panel (non-fasting) (08/10/2017 5:50 AM EST) P athologist Signature Glucose Lvl 135 65 - 199 [facility] mg/dL [facility] Estimated GFR >60 >=60 [facility] LABORATORY Comment: The reported eGFR should be multiplied b y 1.2 for patients. The MDRD is not an appropriate measure o f renal function for patients with body mass extremes or in patients with acute kidney failure. http://[employer]/DHnkdep http://[employer]/DHMCnkf Specimen Anatomical Collection Method Collection Time Receive d Time (Source) Location / / Volume Laterality Blood specimen 08/10/2017 5:50 AM 018 5:59 (specimen) EST AM EST Resulting Agency Comment Spec In Lab Yonathan Smith MD CHEMISTRY ORDERABLES Performing Organization Address City/State/[place] [address] (ABNORMAL) Prothrombin Time (08/10/2017 [...] Smith MD HEMATOLOGY ORDERABLES Performing Organization Address City/[facility]/[place] [address] (ABNORMAL) POCT Glucose (08/10/2017 4:01 AM EST) athologist Signature POC Glucose 206 (H) 65 - 199 [facility] mg/dL [facility] Organization Address City/State/[place] [address] POCT Glucose (08/10/2017 2:01 AM EST) athologist Signature POC Glucose 188 65 - 199 [facility] mg/dL [facility] [...] Organization Address City/State/[place] [address] (ABNORMAL) POCT Glucose (08/09/2017 11:42 PM EST) P athologist Signature POC Glucose 283 (H) 65 - 199 [facility] mg/dL [facility] [...] City/[facility]/[place] [address] POCT Glucose (08/09/2017 8:55 PM EST) P athologist Signature POC Glucose 182 65 - 199 [facility] mg/dL [facility] [...] Organization Address City/State/[place] [address] (ABNORMAL) APTT (08/09/2017 6:42 PM EST) P athologist Signature PTT 90 (H) 25 - [address] [facility] LABORATORY Comment: The recommended therapeutic range for fu ll dose, unfractionated heparin at [facility] is 80 ? 114 seconds. The use [...] Smith MD HEMATOLOGY ORDERABLES Performing Organization Address City/[facility]/ZIP Code Phon e Number [address] POCT Glucose (08/09/2017 4:41 PM EST) athologist Signature POC Glucose 195 65 - 199 [facility] mg/dL [facility] City/[facility]/ZIP Code Phon e Number [address] POCT Glucose (08/09/2017 12:29 PM EST) athologist Signature POC Glucose 140 65 - 199 [facility] mg/dL [facility] [...] S Performing Organization Address City/[facility]/ZIP [facility] Phon e Number [address] POCT Glucose (08/09/2017 9:59 AM EST) athologist Signature POC Glucose 135 65 - 199 [facility] mg/dL [facility] [...] City/[facility]/[place] [address] Specimen to Pathology (08/09/2017 [...] City/[facility]/[place] [address] Surgical Pathology Report (08/09/2017 8:40 AM EST) Component Value Ref Test Analysis Performed At [facility] gist Range Method Time Signature Surgical [id number] ? Location: [facility]; [facility]; A [facility] Report The signing pathologist has (i) examined the relevant preparation(s) for the [place] specimen(s) and (ii) rendered or confirmed the diagnosis(es) . HOSPITAL LABORATORY . 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 ?Viable proximal resection margins. Electronically signed by: ??Manjit STRANGE, Henrique Flower Verified: ??08/13/2017 ?Pathologist Performed at: ??-[facility] Dept. of Pathology, [place], [place] CLINICAL INFORMATION Specimen Submitted: A - [...] / Volume Laterality 08/09/2017 8:40 AM EST Ynoathan Smith MD PATHOLOGY/CYTOLOGY ORDERABLE S Performing Organization Address City/State/[place] [address] Anaerobic Culture (08/09/2017 8:30 AM EST) [facility] gist Method Time Signature Anaerobic No anaerobic [facility] Culture organisms [facility] LABORATORY Specimen Anatomical Collection Method Collection [...] Organization Address City/State/[place] [address] (ABNORMAL) Abscess/Wound Aspirate Culture (08/09/2017 8:30 AM EST) Patholo gist Method Time Signature Abscess/Wound Moderate mixed [facility] Aspirate bacterial [place] Culture morphotypes [facility] normal LABORATORY cutaneous leroy (A) Gram Stain Rare White Blood Cells [facility] Few Gram Positive Cocci in pairs [place] () [facility] LABORATORY Organism Gram Positive [facility] Cocci in pairs [place] () [facility] LABORATORY [...] - GENERAL ORDER [place] Performing Organization Address City/[facility]/[place] [address] POCT Glucose (08/09/2017 4:28 AM EST) P athologist Signature POC Glucose 128 65 - 199 [facility] mg/dL [facility] Address City/State/ZIP Code Phon e Number [address] ABORH Recheck Status (08/09/2017 1:10 AM EST) Patholo gist Method Time Signature ABORH Type Completed [facility] LABORATORY Specimen Anatomical Collection Method Collection Time Receive d Time (Source) Location / / Volume Laterality Blood specimen 08/09/2017 1:10 AM 018 1:35 (specimen) EST AM EST Resulting Agency Comment Spec In Lab Yonathan Smith MD BLOOD BANK ORDERABLES Performing Organization Address City/[facility]/[place] [address] Antibody screen (08/09/2017 1:10 AM EST) Patholo gist Method Time Signature Ab Screen Negative [facility] LABORATORY Expires at 08/12/2017 BARBARA ZHAORYAN [id number] on: [facility] LABORATORY Specimen Anatomical Collection Method Collection Time Receive d Time (Source) Location / / Volume Laterality Blood specimen 08/09/2017 1:10 AM 018 1:35 (specimen) EST AM EST Resulting Agency Comment Spec In Lab Yonathan Smith MD BLOOD BANK ORDERABLES Performing Organization Address City/[facility]/[place] [address] ABO/Rh Typing (08/09/2017 1:10 AM EST) P athologist Signature ABORh Type O Pos [facility] LABORATORY Specimen Anatomical Collection Method Collection Time Receive d Time (Source) Location / / Volume Laterality Blood specimen 08/09/2017 1:10 AM 018 1:35 (specimen) EST AM EST Resulting Agency Comment Spec In Lab Yonathan Smith MD BLOOD BANK ORDERABLES Performing Organization Address City/[facility]/[place] [address] (ABNORMAL) APTT (08/09/2017 1:10 AM EST) P athologist Signature PTT 86 (H) 25 - [address] [facility] LABORATORY Comment: The recommended therapeutic range for fu ll dose, unfractionated heparin at [facility] is 80 ? 114 seconds. The use [...] City/State/[place] [address] (ABNORMAL) Differential, Automated (08/09/2017 1:10 AM EST) [facility] Method Time Signature Neutrophils % 76.2 % [facility] LABORATORY Neutr Abs (ANC) 8.59 (H) 1.70 - [facility] 6.10 [place] x10(3)/[facility] LABORATORY Lymphocytes % 11.0 % [facility] LABORATORY Lymphocytes Abs 1.2 0.9 - 3.2 [facility] x10(3)/[facility] LABORATORY Monocytes % 8.4 % [facility] LABORATORY Monocyte Abs 1.0 (H) 0.3 - 0.9 [facility] x10(3)/[facility] LABORATORY Eosinophils % 3.5 % [facility] LABORATORY Eosinophils Abs 0.4 0.0 - 0.4 [facility] x10(3)/[facility] LABORATORY Basophils % 0.5 % [facility] LABORATORY Basophils Abs 0.1 0.0 - 0.1 [facility] x10(3)/[facility] LABORATORY Immature Gran [...] Gran Abs 0.05 (H) 0.00 - 0.04 x10(3)/[facility] LABORATORY Specimen Anatomical Collection Method Collection Time Receive d Time (Source) Location / / Volume Laterality Blood specimen 08/09/2017 1:10 AM 018 1:19 (specimen) EST AM EST Resulting Agency Comment Spec In Lab Yonathan Smith MD HEMATOLOGY ORDERABLES Performing Organization Address City/State/[place] [address] (ABNORMAL) Hemogram (08/09/2017 1:10 AM EST) Analysis Performed At Patho logist Time Signature WBC 11.3 (H) 4.0 - 9.5 [facility] LABORATORY RBC 3.47 (L) 4.58 - [facility] 5.54 [place] x10(6)/[facility] LABORATORY Hemoglobin 10.0 (L) 13.7 - [facility] 16.5 gm/dL [facility] LABORATORY Hematocrit 31.9 (L) 40.5 - [facility] 48.5 % [facility] LABORATORY MCV 91.9 82.9 - [facility] 93.1 [facility] LABORATORY MCH 28.8 27.5 - [facility] 32.1 pg [facility] LABORATORY MCHC 31.3 (L) 32.0 - [facility] 35.7 gm/dL [facility] LABORATORY Platelets 234 145 - 357 [facility] x10(3)/[facility] LABORATORY RDWSD 54.0 (H) 36.0 - [facility] 45.0 [facility] LABORATORY RDWCV 16.2 (H) 11.4 - [facility] 13.8 % [facility] LABORATORY MPV 8.7 7.6 - 12.9 [facility] LABORATORY nRBC % Auto 0.0 % [facility] LABORATORY nRBC Abs Auto 0.000 0.000 - [facility] 0.000 [place] x10(3)/[facility] LABORATORY Specimen Anatomical Collection Method Collection Time Receive d Time (Source) Location / / Volume Laterality Blood specimen 08/09/2017 1:10 AM 018 1:19 (specimen) EST AM EST Resulting Agency Comment Spec In Lab Yonathan Smith MD HEMATOLOGY ORDERABLES Performing Organization Address City/State/[place] [address] (ABNORMAL) Prothrombin Time (08/09/2017 [...] Organization Address City/State/[place] [address] (ABNORMAL) Basic Metabolic Panel (non-fasting) (08/09/2017 1:10 AM EST) athologist Signature Glucose Lvl 108 65 - 199 [facility] mg/dL [facility] [...] HOSPITAL LABORATORY Estimated GFR 45 (L) >=60 [facility] LABORATORY Comment: The reported eGFR should be multiplied b y 1.2 for patients. The MDRD is not an appropriate measure o f renal function for patients with body mass extremes or in patients with acute kidney failure. [email or web address] [email or web address] Specimen Anatomical Collection Method Collection Time Receive d Time (Source) Location / / Volume Laterality Blood specimen 08/09/2017 1:10 AM 018 1:19 (specimen) EST AM EST Resulting Agency Comment Spec In Lab Yonathan Smith MD CHEMISTRY ORDERABLES Performing Organization Address City/[facility]/ZIP [facility] Phon e Number [address] POCT Glucose (08/09/2017 12:05 AM EST) P athologist Signature POC Glucose 128 65 - 199 [facility] mg/dL [facility] [...] City/[facility]/[place] [address] (ABNORMAL) POCT Glucose (08/08/2017 7:36 PM EST) P athologist Signature POC Glucose 215 (H) 65 - 199 [facility] mg/dL [facility] [...] Organization Address City/State/[place] [address] (ABNORMAL) POCT Glucose (08/08/2017 6:23 PM EST) athologist Signature POC Glucose 216 (H) 65 - 199 [facility] mg/dL [facility] [...] City/[facility]/[place] [address] (ABNORMAL) APTT (08/08/2017 6:00 PM EST) athologist Signature PTT 97 (H) 25 - [address] [facility] LAB[facility]ORY Comment: The recommended therapeutic range for fu ll dose, unfractionated heparin at [facility] is 80 ? 114 seconds. The use [...] Organization Address City/State/[place] [address] POCT Glucose (08/08/2017 4:42 PM EST) athologist Signature POC Glucose 78 65 - 199 [facility]/dL [facility] [...] Organization Address City/State/[place] [address] (ABNORMAL) POCT Glucose (08/08/2017 4:01 PM EST) P athologist Signature POC Glucose 58 (L) 65 - 199 [facility] mg/dL [facility] [...] City/[facility]/[place] [address] POCT Glucose (08/08/2017 11:51 AM EST) athologist Signature POC Glucose 90 65 - 199 [facility] mg/dL [facility] [...] City/[facility]/[place] [address] (ABNORMAL) APTT (08/08/2017 10:27 AM EST) P athologist Signature PTT 64 (H) 25 - [address] [facility] LAB[facility] Comment: The recommended therapeutic range for fu ll dose, unfractionated heparin at [facility] is 80 ? 114 seconds. The use [...] Smith MD HEMATOLOGY ORDERABLES Performing Organization Address City/[facility]/[place] [address] POCT Glucose (08/08/2017 8:02 AM EST) athologist Signature POC Glucose 178 65 - 199 [facility] mg/dL [facility] LABORATORY Comment: Supplemental ranges: <140 mg/dL before meals <180 mg/dL all other times of the day Specimen Anatomical Collection Method Collection Time Receive d Time (Source) Location / / Volume Laterality Blood specimen 08/08/2017 8:02 AM 018 8:02 (specimen) EST AM EST Yonathan Smith MD POINT OF CARE TEST ORDERABLE S Performing Organization Address City/[facility] [place] [address] (ABNORMAL) APTT (08/08/2017 4:51 AM EST) athologist Signature PTT >160 25 - 35 [facility] (Critical) sec [facility] LABORATORY Comment: Called by: HOWARD, Read back by: Melba Jaramillo, Date/Time:08/08/17 05:43. The recommended therapeutic range for fu ll dose, unfractionated heparin at [facility] is 80 ? 114 seconds. The use [...] Smith MD HEMATOLOGY ORDERABLES Performing Organization Address City/[facility]/ZIP [facility] [place] [address] (ABNORMAL) Differential, Automated (08/08/2017 4:51 AM EST) Patholo gist Method Time Signature Neutrophils % 77.9 % [facility] LABORATORY Neutr Abs (ANC) 8.17 (H) 1.70 - [facility] 6.10 [place] x10(3)/[facility] LABORATORY Lymphocytes % 10.3 % [facility] LABORATORY Lymphocytes Abs 1.1 0.9 - 3.2 [facility] x10(3)/[facility] LABORATORY Monocytes % 7.0 % [facility] LABORATORY Monocyte Abs 0.7 0.3 - 0.9 [facility] x10(3)/[facility] LABORATORY Eosinophils % 3.6 % [facility] LABORATORY Eosinophils Abs 0.4 0.0 - 0.4 [facility] x10(3)/[facility] LABORATORY Basophils % 0.5 % [facility] LABORATORY Basophils Abs 0.0 0.0 - 0.1 [facility] x10(3)/[facility] LABORATORY Immature Gran % 0.70 [...] Gran Abs 0.07 (H) 0.00 - 0.04 x10(3)/[facility] LABORATORY Specimen Anatomical Collection Method Collection Time Receive d Time (Source) Location / / Volume Laterality Blood specimen 08/08/2017 4:51 AM 018 5:14 (specimen) EST AM EST Resulting Agency Comment Spec In Lab Yonathan Smith MD HEMATOLOGY ORDERABLES Performing Organization Address City/State/[place] [address] (ABNORMAL) Hemogram (08/08/2017 4:51 AM EST) Analysis Performed At Patho logist Time Signature WBC 10.5 (H) 4.0 - 9.5 [facility] x10(3)/[facility] LABORATORY RBC 3.27 (L) 4.58 - [facility] 5.54 [place] x10(6)/[facility] LABORATORY Hemoglobin 9.3 (L) 13.7 - [facility] 16.5 gm/dL [facility] LABORATORY Hematocrit 30.3 (L) 40.5 - [facility] 48.5 % [facility] LABORATORY MCV 92.7 82.9 - [facility] 93.1 [facility] LABORATORY MCH 28.4 27.5 - [facility] 32.1 pg [facility] LABORATORY MCHC 30.7 (L) 32.0 - [facility] 35.[facility] gm/dL [facility] LABORATORY Platelets 252 145 - 357 [facility] x10(3)/[facility] LABORATORY RDWSD 54.6 (H) 36.0 - [facility] 45.0 [facility] LABORATORY RDWCV 16.2 (H) 11.4 - [facility] 13.8 % [facility] LABORATORY MPV 9.1 7.6 - 12.9 [facility] LABORATORY nRBC % Auto 0.0 % [facility] LABORATORY nRBC Abs Auto 0.000 0.000 - [facility] 0.000 [place] x10(3)/[facility] LABORATORY Specimen Anatomical Collection Method Collection Time Receive d Time (Source) Location / / Volume Laterality Blood specimen 08/08/2017 4:51 AM 018 5:14 (specimen) EST AM EST Resulting Agency Comment Spec In Lab Yonathan Smith MD HEMATOLOGY ORDERABLES Performing Organization Address City/State/[place] [address] (ABNORMAL) Prothrombin Time (08/08/2017 [...] City/State/[place] [address] (ABNORMAL) Basic Metabolic Panel (non-fasting) (08/08/2017 4:51 AM EST) P athologist Signature Glucose Lvl 229 (H) 65 - 199 [facility] mg/dL [facility] [...] or in patients with acute kidney failure. [email or web address] [email or web address] Specimen Anatomical Collection Method Collection Time Receive d Time (Source) Location / / Volume Laterality Blood specimen 08/08/2017 4:51 AM 018 5:14 (specimen) EST AM EST Resulting Agency Comment Spec In Lab Yonathan Smith MD CHEMISTRY ORDERABLES Performing Organization Address City/State/ZIP Code Phon e Number [address] POCT Glucose (08/08/2017 4:20 AM EST) athologist Signature POC Glucose 193 65 - 199 [facility] mg/dL [facility] City/[facility]/ZIP Code Phon e Number [address] POCT Glucose (08/07/2017 11:11 PM EST) athologist Signature POC Glucose 124 65 - 199 [facility] mg/dL [facility] [...] City/[facility]/ZIP Code Phon e Number [address] (ABNORMAL) APTT (08/07/2017 10:18 PM EST) P athologist Signature PTT 114 (H) 25 - [address] [facility] LABORATORY Comment: The recommended therapeutic range for fu ll dose, unfractionated heparin at [facility] is 80 ? 114 seconds. The use [...] Smith MD HEMATOLOGY ORDERABLES Performing Organization Address City/[facility] Phon e Number [address] POCT Glucose (08/07/2017 8:10 PM EST) athologist Signature POC Glucose 140 65 - 199 [facility] mg/dL [facility] [...] City/[facility]/ZIP Code Phon e Number [address] POCT Glucose (08/07/2017 5:27 PM EST) athologist Signature POC Glucose 187 65 - 199 [facility] mg/dL [facility] [...] City/[facility]/ZIP Code Phon e Number [address] POCT Glucose (08/07/2017 3:29 PM EST) athologist Signature POC Glucose 86 65 - 199 [facility] mg/dL [facility] [...] City/[facility]/[place] [address] (ABNORMAL) APTT (08/07/2017 2:50 PM EST) athologist Signature PTT 60 (H) 25 - [address] [facility] LABOR[facility]ORY Comment: The recommended therapeutic range for fu ll dose, unfractionated heparin at [facility] is 80 ? 114 seconds. The use [...] Smith MD HEMATOLOGY ORDERABLES Performing Organization Address City/[facility]/[place] [address] (ABNORMAL) POCT Glucose (08/07/2017 2:23 PM EST) athologist Signature POC Glucose 55 (L) 65 - 199 [facility] mg/dL [facility] [...] City/State/[place] [address] POCT Glucose (08/07/2017 12:08 PM EST) P athologist Signature POC Glucose 77 65 - 199 [facility] mg/dL [facility] [...] Address City/State/ZIP Code Phon e Number [address] (ABNORMAL) Differential, Automated (08/07/2017 7:30 AM EST) Patholo gist Method Time Signature Neutrophils % 73.8 % [facility] LABORATORY Neutr Abs (ANC) 7.17 (H) 1.70 - [facility] 6.10 [place] x10(3)/[facility] LABORATORY Lymphocytes % 12.2 % [facility] LABORATORY Lymphocytes Abs 1.2 0.9 - 3.2 [facility] x10(3)/[facility] LABORATORY Monocytes % 9.0 % [facility] LABORATORY Monocyte Abs 0.9 0.3 - 0.9 [facility] x10(3)/[facility] LABORATORY Eosinophils % 3.9 % [facility] LABORATORY Eosinophils Abs 0.4 0.0 - 0.4 [facility] x10(3)/[facility] LABORATORY Basophils % 0.6 % [facility] LABORATORY Basophils Abs 0.1 0.0 - 0.1 [facility] x10(3)/[facility] LABORATORY Immature Gran [...] Gran Abs 0.05 (H) 0.00 - 0.04 x10(3)/[facility] LABORATORY Specimen Anatomical Collection Method Collection Time Receive d Time (Source) Location / / Volume Laterality Blood specimen 08/07/2017 7:30 AM 018 7:45 (specimen) EST AM EST Resulting Agency Comment Spec In Lab Yonathan Smith MD HEMATOLOGY ORDERABLES Performing Organization Address City/State/[place] [address] (ABNORMAL) Hemogram (08/07/2017 7:30 AM EST) Analysis Performed At Patho logist Time Signature WBC 9.7 (H) 4.0 - 9.5 [facility] x10(3)/[facility] LABORATORY RBC 3.54 (L) 4.58 - [facility] 5.54 [place] x10(6)/[facility] LABORATORY Hemoglobin 9.9 (L) 13.7 - [facility] 16.5 gm/dL [facility] LABORATORY Hematocrit 32.3 (L) 40.5 - [facility] 48.5 % [facility] LABORATORY MCV 91.2 82.9 - [facility] 93.1 [facility] LABORATORY MCH 28.0 27.5 - [facility] 32.1 pg [facility] LABORATORY MCHC 30.7 (L) 32.0 - [facility] 35.7 gm/dL [facility] LABORATORY Platelets 312 145 - 357 [facility] x10(3)/[facility] LABORATORY RDWSD 53.2 (H) 36.0 - [facility] 45.0 [facility] LABORATORY RDWCV 16.0 (H) 11.4 - [facility] 13.8 % [facility] LABORATORY MPV 8.9 7.6 - 12.9 [facility] LABORATORY nRBC % Auto 0.0 % [facility] LABORATORY nRBC Abs Auto 0.000 0.000 - [facility] 0.000 [place] x10(3)/[facility] LABORATORY Specimen Anatomical Collection Method Collection Time Receive d Time (Source) Location / / Volume Laterality Blood specimen 08/07/2017 7:30 AM 018 7:45 (specimen) EST AM EST Resulting Agency Comment Spec In Lab Yonathan Smith MD HEMATOLOGY ORDERABLES Performing Organization Address City/State/[place] [address] (ABNORMAL) Basic Metabolic Panel (non-fasting) (08/07/2017 7:30 AM EST) athologist Signature Glucose Lvl 80 65 - 199 [facility] mg/dL [facility] [...] or in patients with acute kidney failure. [email or web address] [email or web address] Specimen Anatomical Collection Method Collection Time Receive d Time (Source) Location / / Volume Laterality Blood specimen 08/07/2017 7:30 AM 018 7:45 (specimen) EST AM EST Resulting Agency Comment Spec In Lab Yonathan Smith MD CHEMISTRY ORDERABLES Performing Organization Address City/[facility]/ZIP Code Phon e Number [address] POCT Glucose (08/07/2017 7:27 AM EST) athologist Signature POC Glucose 81 65 - 199 [facility] mg/dL [facility] [...] ORDERABLE S Performing Organization Address [facility] Phon e Number [address] APTT (08/07/2017 7:04 AM EST) athologist Signature PTT 34 25 - [address] [facility] LAB[facility]ORY Comment: The recommended therapeutic range for fu ll dose, unfractionated heparin at [facility] is 80 ? 114 seconds. The use [...] Smith MD HEMATOLOGY ORDERABLES Performing Organization Address City/[facility]/ZIP [facility] Phon e Number [address] (ABNORMAL) Prothrombin Time (08/07/2017 [...] Address City/State/ZIP Code Phon e Number [address] POCT Glucose (08/07/2017 4:03 AM EST) athologist Signature POC Glucose 93 65 - 199 [facility] mg/dL [facility] Address City/State/ZIP Code Phon e Number [address] POCT Glucose (08/07/2017 12:04 AM EST) athologist Signature POC Glucose 107 65 - 199 [facility] mg/dL [facility] [...] Organization Address City/State/[place] [address] POCT Glucose (08/06/2017 7:56 PM EST) P athologist Signature POC Glucose 178 65 - 199 [facility] mg/dL [facility] [...] City/State/[place] [address] TcPO2 (08/06/2017 2:32 PM EST) Component Value Ref Test Analysis Performed At Patholo gist Range Method Time Signature VB Text Department: Vascular Surgery Lab VASCUBASE Report Patient: [id number] (GREGORY HOANG) CPT: 9457104 ICD10: I99.8 Referring Physician: YONATHAN SMITH ?? [...] ams, RN)1200 (Not Given - Provider: Dory rTuong RN - Reason: Patient/family refused) 11 Units, [...] Henrique Marks RN) 09 (Given - Provider: hCiquis Mcgrath RN)2022 (Hold - Provider: Mira Truong [...]
Routine documented in this encounter Care Teams Head Of [employer] Relationship Specialty Start Date End Date Lovely Vicente MD PCP - General 04/16/[address] [place] [address] documented as of this encounter
--- OUTSIDE RECORDS SUMMARY | 2022-03-06 08:10 | XMS_ITS | Encounter Summary ---
:1945 [place] [address] Care Team Providers Name Role Phone Lovely Vicente MD Primary Care Provider Encounter Details Date Type Department Care Team Description 08/09/2017 Clinical Support Same Day at [facility] Canceled (D-SCHED ERROR [facility] / CORRECT ION ) [place] [address] Social History Tobacco Use Types Packs/Day [...] MD [facility] ER CARDIOLOGY [place], [place] [address] (Wo rk) 06/10/2022 Office Visit Dermatology Laura Scherer MD [facility] [address] TE[address] GR-DERMAT OLOGY [place], [place] [address] (Wo rk) documented as of this encounter Procedures Procedure Name Priority Date/Time Associated Diagnosis Comme nts PHARMACY ACCOUNT DIRECTOR 08/09/2017 12:00 AM Resul ts for this SCAN EST procedure are i n the results section. documented in this encounter Results SCAN DOC: PHARMACY ACCOUNT DIRECTOR (08/09/2017 12:00 AM EST) Narrative 08/09/2017 12:00 AM EST This result has an attachment that is no t available. Ordered by an unspecified provider. Scanning Provider MEDIA MGR SCAN EXT ORDR/RSLT documented in this encounter Visit Diagnoses Not on filedocumented in this encounter Care Teams Maori Liaison Adviser Relationship Specialty Start Date End Date Lovely Vicente MD PCP - General 04/16/[address] [place] [address] documented as of this encounter
--- OUTSIDE RECORDS SUMMARY | 2022-03-06 08:11 | XMS_ITS | Encounter Summary ---
:1945 Author Organization [facility] [place] [address] Care Team Providers Name Role Phone Lovely Vicente MD Primary Care Provider Reason for Visit Reason Comments Foot Ulcer WOUND CHECK Auth/Cert Specialty Diagnoses / Procedures Referred By Contact Refer red To Contact Diagnoses Critical lower limb ischemia CELLULITIS RT FOOT Procedures EMERGENCY Referral ID Status Reason Start Date Expiration Date Visits Requ ested Visits Authorized [id number] 1 1 Encounter Details Date Type Department Care Team Description 08/06/2017 [facility] ischemia [facility] [address] [place], [place] VASCULAR SURGERY [id number] [place] [address] [phone] Social History Tobacco Use Types Packs/Day Years [...] MD - 08/06/2017 1:00 PM EST [facility] staff: 1. RIGHT leg CLI Interval [...] Cardiology Vitaliy Nobles MD [facility] CARDIOLOGY [place], [place] [address] (Wo rk) 06/10/2022 Office Visit Dermatology Laura Scherer MD [facility] DR TE[address] GR-DERMAT [place], [place] [address] (Wo rk) documented as of this encounter Visit Diagnoses Diagnosis Critical lower limb ischemia Unspecified circulatory system disorder documented in this encounter Care Teams Fisher Hoop Net Relationship Specialty Start Date End Date Lovely Vicente MD PCP - General 04/16/[address] [place] [address] documented as of this encounter
--- OUTSIDE RECORDS SUMMARY | 2022-03-06 08:11 | XMS_ITS | Encounter Summary ---
:1945 Author Organization [facility] Address [address] [place] [address] Care Team Providers Name Role Phone Lovely Vicente MD Primary Care Provider Encounter Details Date Type Department Care Team Description 07/29/2017 Transcribe Orders Laboratory Lovely Vicente, Coronary artery rupture; [facility] Ischemic cardiomyopathy; [facility] [address] Atherosclerosis of qagan tayagungin co ronary artery, angina presence unspecified, unspecified whether qagan tayagungin or transplanted heart; [place], [place] [address] Essential hypertension, malignant; [id number] [place], [place] 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, unspecified fdc insulin use status [phone] Social History Tobacco Use Types Packs/Day Years [...] Vitaliy Nobles MD [facility] CARDIOLOGY [place], [place] [address] (Wo rk) 06/10/2022 Office Visit Dermatology Laura Scherer MD [facility] ER [address]DERMAT [place], [place] [address] (Wo rk) Scheduled Orders Name Type Priority Associated Diagnoses Order S chedule Lab Use Only, Fax Lab Routine Coronary arter y rupture Expected: 07/29/2017 Request Ischemic cardiom yopathy (Approximate), Atherosclerosis of qagan tayagungin Ex jose: 07/29/2018 coronary artery, angina presence unspecified, unspecified whether qagan tayagungin or transplanted heart Essential hypertension, malignant documented as of this encounter Results Uric acid (08/04/2017 12:55 PM EST) P athologist Signature Uric Acid 7.1 3.5 - 8.5 KATALINA RYAN mg/dL [facility] Specimen Anatomical Collection Method Collection Time Receive d Time (Source) Location / / Volume Laterality Blood specimen 08/04/2017 12:55 8 1:01 (specimen) PM EST PM EST Resulting Agency Comment Spec In Lab Lovely Vicente MD CHEMISTRY ORDERABLES Performing Organization Address City/State/[place] [address] (ABNORMAL) Hemogram (08/04/2017 12:55 PM EST) Analysis Performed At Patho logist Time Signature WBC 15.8 (H) 4.0 - 9.5 KATALINA RYAN x10(3)/[facility] LABORATORY RBC 3.48 (L) 4.58 - KATALINA RYAN 5.54 [facility] x10(6)/[facility] LABORATORY Hemoglobin 9.9 (L) 13.7 - KATALINA RYAN 16.5 gm/dL [facility] Hematocrit 31.4 (L) 40.5 - KATALINA RYAN 48.5 % [facility] MCV 90.2 82.9 - KATALINA RYNA 93.1 fL [facility] MCH 28.4 27.5 - K[place]ALINA RYAN 32.1 pg [facility] MCHC 31.5 (L) 32.0 - K[place]ALINA RYAN 35.7 gm/dL [facility] Platelets 310 145 - 357 KATALINA RYAN x10(3)/[facility] LABORATORY RDWSD 51.8 (H) 36.0 - [facility] 45.0 [facility] LABORATORY RDWCV 15.8 (H) 11.4 - [facility] 13.8 % [facility] LABORATORY MPV 8.9 7.6 - 12.9 [facility] LABORATORY nRBC % Auto 0.0 % [facility] LABORATORY nRBC Abs Auto 0.000 0.000 - [facility] 0.000 [facility] x10(3)/[facility] LABORATORY Specimen Anatomical Collection Method Collection Time Receive d Time (Source) Location / / Volume Laterality Blood specimen 08/04/2017 12:55 8 1:01 (specimen) PM EST PM EST Resulting Agency Comment Spec In Lab Lovely Vicente MD HEMATOLOGY ORDERABLES Performing Organization Address City/State/[place] [address] (ABNORMAL) Comprehensive metabolic panel (non-fasting) (08/04/2017 12:55 PM EST) P athologist Signature Glucose Lvl 208 (H) 65 - 199 [facility] mg/dL [facility] Comment: Diabetes: >=200 mg/dL plus symp toms BUN 32 (H) 10 - 20 mg/dL [facility] Creatinine 1.58 (H) 0.80 - 1.50 mg/dL [facility] LABORATORY Sodium 136 135 - 145 mmol/L [facility] Potassium 5.5 (H) 3.5 - 5.0 mmol/L [facility] LABORATORY [...] LABORATORY Calcium 8.6 8.5 - 10.5 mg/dL [facility] Total Protein 6.9 6.1 - 8.0 gm/dL [facility] Albumin 3.4 3.2 - 5.2 gm/dL [facility] LABORATORY AST 20 0 - 39 unit/L [facility]ORY ALT 21 0 - 55 unit/L [facility]ORY Alk Phos 93 40 - 120 unit/L [facility] LABORATORY Total Bilirubin 0.4 0.2 - 1.3 mg/dL [facility] LABORATORY Estimated GFR 43 (L) >=60 [facility] Comment: The reported eGFR should be multiplied b y 1.2 for patients. The MDRD is not an appropriate measure o f renal function for patients with body mass extremes or in patients with acute kidney failure. http://Jelly HQ/DHnkdep http://[employer]/DHMCnkf Specimen Anatomical Collection Method Collection Time Receive d Time (Source) Location / / Volume Laterality Blood specimen 08/04/2017 12:55 8 1:01 (specimen) PM EST PM EST Resulting Agency Comment Spec In Lab Lovely Vicente MD CHEMISTRY ORDERABLES Performing Organization Address City/State/[place] [address] (ABNORMAL) Hemoglobin A1c (08/04/2017 12:55 PM EST) Analysis Performed At Patho logist Time Signature Hemoglobin A1C 6.2 (H) 4.3 - 5.6 [facility] [...] Mellitus, Diabetes Care 2013; 36: Suppl. 1, S67-42 Est Avg Gluc See note mg/dL [facility] [...] with hemoglobinopathies. Additional resources are available on [facility] ADA website. Macario HAMMOND, Ruthann J, Deysi R, et al. ??Tr anslating the A1C assay into estimated average glucose values. ??Diabetes Care 2008:31(8):0565-5532. Specimen Anatomical Collection Method Collection Time Receive d Time (Source) Location / / Volume Laterality Blood specimen 08/04/2017 12:55 8 1:01 (specimen) PM EST PM EST Resulting Agency Comment Spec In Lab Lovely Vicente MD CHEMISTRY ORDERABLES Performing Organization Address City/State/[place] [address] (ABNORMAL) Prothrombin Time (08/04/2017 [...] Address City/State/[place] [address] documented in this encounter Visit Diagnoses Diagnosis Coronary artery rupture Acute myocardial infarction, unspecified site, episode of care unspecified Ischemic cardiomyopathy Other specified forms of chronic ischemi c heart disease Atherosclerosis of qagan tayagungin coronary arter y, angina presence unspecified, unspecified whether qagan tayagungin or transplanted heart Essential hypertension, malignant Diabetes mellitus due to underlying cond ition with diabetic nephropathy, unspecified long term care pharmacist insulin use status documented in this encounter Care Teams Crew Director Relationship Specialty Start Date End Date Lovely Vicente MD PCP - General 04/16/[address] [place] [address] documented as of this encounter
--- OUTSIDE RECORDS SUMMARY | 2022-03-06 08:11 | XMS_ITS | Encounter Summary ---
:1945 Author Organization [facility] [place] [address] Care Team Providers Name Role Phone Lovely Vicente MD Primary Care Provider Reason for Visit Auth/Cert Specialty Diagnoses / Procedures Referred By Contact Refer red To Contact Diagnoses Critical lower limb ischemia CELLULITIS RT FOOT Procedures EMERGENCY Referral ID Status Reason Start Date Expiration Date Visits Requ ested Visits Authorized [id number] 1 1 Encounter Details Date Type Department Care Team Description 08/06/2017 Clinical Support Same Day at [facility] Ischemia of foot [facility] [place] [address] Social History Tobacco Use Types Packs/Day [...] noother symptoms except severe right foot pain. [facility] clinic called as pt on route [...] MD [facility] [address] T[address] [place], [place] [address] (Wo rk) 06/10/2022 Office Visit Dermatology Laura Scherer MD [facility] [address] OLOGY [place], [place] [address] (Wo rk) documented as of [...] 444 ms MUSE SYSTEM (Bezet) Calculated P Steens 44 degrees MUSE SYSTEM Calculated R Steens -31 degrees MUSE SYSTEM Calculated T Steens 106 degrees MUSE SYSTEM INTERPRETATION Normal sinus [...] disorder documented in this encounter Care Teams Digital Service Engineer Relationship Specialty Start Date End Date Lovely Vicente MD PCP - General 04/16/[address] [place] [address] documented as of this encounter
--- OUTSIDE RECORDS SUMMARY | 2022-03-06 08:11 | XMS_ITS | Encounter Summary ---
:1945 [place] [address] Care Team Providers Name Role Phone Lovely Vicente MD Primary Care Provider Encounter Details Date Type Department Care Team Description 08/04/2017 Orders Only Cardiac Surgery Makayla Wilson APRN [facility] [place] [address] CARDIAC SURGERY [phone] [place], [place] [address] (Wo rk) Social History Tobacco [...] Cardiology Vitaliy Nobles MD [facility] ER DR [place], [place] [address] (Wo rk) 06/10/2022 Office Visit Dermatology Laura Scherer MD [facility] [address] OLOGY [place], [place] [address] (Wo rk) documented as of this encounter Visit Diagnoses Not on filedocumented in this encounter Care Teams Swimming Pool Servicer Relationship Specialty Start Date End Date Lovely Vicente MD PCP - General 04/16/[address] [place] [address] documented as of this encounter
--- OUTSIDE RECORDS SUMMARY | 2022-03-06 08:11 | XMS_ITS | Encounter Summary ---
:1945 Author Organization [facility] [address] Care Team Providers Name Role Phone Lovely Vicente MD Primary Care Provider Reason for Visit Auth/Cert Specialty Diagnoses / Procedures Referred By Contact Refer red To Contact Diagnoses Critical lower limb ischemia CELLULITIS RT FOOT Procedures EMERGENCY Referral ID Status Reason Start Date Expiration Date Visits Requ ested Visits Authorized [id number] 1 1 Encounter Details Date Type Department Care Team Description 08/04/2017 [facility] [place] [facility] of [facility] [place] [phone] Social History Tobacco Use Types Packs/Day Years [...] [facility] CARDIOLOGY [place], [place] [address] (Wo rk) 06/10/2022 Office Visit Dermatology Laura Scherer MD [facility] [address] OLOGY [place], [place] [address] (Wo rk) documented as of [...] At [facility] Range Method Time Signature VB Text Department: Vascular Surgery Lab VASCUBASE Report Patient: [id number] (DON HOANG) CPT: 24773 ICD10: I82.541 Referring Physician: TAMIKO HUTSON ?? [...] extremity documented in this encounter Care Teams Barber Relationship Specialty Start Date End Date Lovely Vicente MD PCP - General 04/16/[address] [place] [address] documented as of this encounter
--- OUTSIDE RECORDS SUMMARY | 2022-03-06 08:11 | XMS_ITS | Encounter Summary ---
:1945 Author Organization [facility] [place] [address] Care Team Providers Name Role Phone Lovely Vicente MD Primary Care Provider Reason for Visit Auth/Cert Specialty Diagnoses / Procedures Referred By Contact Refer red To Contact Diagnoses Critical lower limb ischemia CELLULITIS RT FOOT Procedures EMERGENCY Referral ID Status Reason Start Date Expiration Date Visits Requ ested Visits Authorized [id number] 1 1 Encounter Details Date Type Department Care Team Description 08/04/2017 Office Visit Cardiology at [facility] Danette Maxwell Incisional pain; [facility] A, MATERIALS ENGINEER Ischemic cardiomyopathy; [facility] ASCVD (arteriosclerotic card iovascular disease); [place], [place] Systolic heart failure, unspecified hear t failure chronicity [phone] CARDIOLOGY [phone] [place], [place] [address] Social History Tobacco Use Types [...] in this encounter Progress Notes Danette Maxwell, MATERIALS ENGINEER - 08/04/2017 3:00 PM EST ID and [...] 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 [...] Vitaliy Nobles MD [facility] CARDIOLOGY [place], [place] [address] (Wo rk) 06/10/2022 Office Visit Dermatology Laura Scherer MD [facility] DR [address] GR[address]MAT [place], [place] [address] (Wo rk) documented as of [...] EXAMINATION: XR CHEST PA AND LATERAL ([facility]) CLINICAL HISTORY: Checking sternal stabi lity/assess wires [...] sensation documented in this encounter Care Teams Fabrication Specialist Relationship Specialty Start Date End Date Lovely Vicente MD PCP - General 04/16/[address] [place] [address] documented as of this encounter
--- OUTSIDE RECORDS SUMMARY | 2022-03-06 08:11 | XMS_ITS | Encounter Summary ---
:1945 [place] [address] Care Team Providers Name Role Phone Lovely Vicente MD Primary Care Provider Encounter Details Date Type Department Care Team Description 07/29/2017 Hospital Encounter Vascular Lab at Critic monica Huber lower limb [facility] [place] [phone] Social History Tobacco Use Types Packs/Day Years [...] [facility] [address] [place], [place] [address] (Wo rk) 06/10/2022 Office Visit Dermatology Laura Scherer MD [facility] DR [address]DERMAT [place], [place] [address] (Wo rk) documented as of this encounter Visit Diagnoses Diagnosis Critical lower limb ischemia Unspecified circulatory system disorder documented in this encounter Care Teams Museum Exhibit Designer Relationship Specialty Start Date End Date Lovely Vicente MD PCP - General 04/16/[address] [place] [address] documented as of this encounter
--- OUTSIDE RECORDS SUMMARY | 2022-03-06 08:11 | XMS_ITS | Encounter Summary ---
:1945 Author Organization [facility] [place] [address] Care Team Providers Name Role Phone Lovely Vicente MD Primary Care Provider Encounter Details Date Type Department Care Team Description 08/03/2017 Telephone Pain Management at [place], [place] [address] Social History Tobacco Use Types Packs/Day [...] Management Center Preauthorization Request Patient: Don Fatima [id number] Fax received from [facility] requesting we obtain prior authorization for Lidocaine Patches prescribed by Barbra Soares APRN. RX insurance plan: [facility] [employer] [facility] [employer] RX insurance telephone: [phone] Patient ?? Diagnosis: right foot pain secondary to PVD and ischemia ?? Previous medications attempted: Tylenol, Tramadol, Dilaudid Authorization/Reference number: [id number], PBP Code 801 _x_ denied, provider and patient informed _x_ appeal initiated by provider, patient informed [place] Rodrigez, RN documented in this encounter Plan of Treatment Upcoming Encounters Date Type Specialty Care Team Description 03/26/2022 Office Visit Cardiology Vitaliy Nobles MD [facility] ER [address] TADE[address] [place], [place] [address] (Wo rk) 06/10/2022 Office Visit Dermatology Laura Scherer MD [facility] [address] [place], [place] [address] (Wo rk) documented as of this encounter Visit Diagnoses Not on filedocumented in this encounter Care Teams Monorail Helper Relationship Specialty Start Date End Date Lovely Vicente MD PCP - General 04/16/15 [facility] [address] [place] [address] documented as of this encounter
--- OUTSIDE RECORDS SUMMARY | 2022-03-06 08:11 | XMS_ITS | Encounter Summary ---
:1945 Author Organization [facility] [place] [address] Care Team Providers Name Role Phone Lovely Vicente MD Primary Care Provider Reason for Visit Reason Comments Deep Vein Thrombosis Auth/Cert Specialty Diagnoses / Procedures Referred By Contact Refer red To Contact Diagnoses Critical lower limb ischemia CELLULITIS RT FOOT Procedures EMERGENCY Referral ID Status Reason Start Date Expiration Date Visits Requ ested Visits Authorized [id number] 1 1 Encounter Details Date Type Department Care Team Description 08/04/2017 Office Visit Vascular Surgery at [facility] itical lower limb [facility] ischemia [facility] [address] [place] VASCULAR SURGERY [phone] [place] [address] [phone] Social History Tobacco Use Types Packs/Day Years [...] was discharged on Coumadin. ??He presented to [facility] on 07/20 with mottled toes [...] MD [facility] [address] T[address] [place], [place] [address] (Wo rk) 06/10/2022 Office Visit Dermatology Laura Scherer MD [facility] [address] OLOGY [place], [place] [address] (Wo rk) documented as of this encounter Visit Diagnoses Diagnosis Critical lower limb ischemia Unspecified circulatory system disorder documented in this encounter Care Teams Wire Rope Sling Maker Relationship Specialty Start Date End Date Lovely Vicente MD PCP - General 04/16/15 [address] [place] [address] documented as of this encounter
--- OUTSIDE RECORDS SUMMARY | 2022-03-06 08:11 | XMS_ITS | Encounter Summary ---
:1945 Author Organization [facility] [place] [address] Care Team Providers Name Role Phone Lovely Vicente MD Primary Care Provider Encounter Details Date Type Department Care Team Description 08/02/2017 Telephone Pain Management at [place], [place] [address] Social History Tobacco Use Types Packs/Day [...] Management Center Preauthorization Request Patient: Don Fatima [id number] Fax received from [facility] requesting we obtain prior authorization for Lidocaine patches prescribed by Barbra Soares APRN. RX insurance plan: [employer] RX insurance telephone: [phone] Patient Diagnosis: right foot pain secondary to PVD and ischemia Previous medications attempted: Tylenol, Tramadol, Dilaudid The following action was taken after discussion with the medicine and health service manager: _x_ pharmacy informed Authorized dosage or amount: 5% on patch on for 12 hours, then remove for 12 hours. [place] Rodrigez, RN documented in this encounter Plan of Treatment Upcoming Encounters Date Type Specialty Care Team Description 03/26/2022 Office Visit Cardiology Vitaliy Nobles MD [facility] ER [address] TADEO [place], [place] [address] (Wo rk) 06/10/2022 Office Visit Dermatology Laura Scherer MD [facility] ER DR TEJA GR-DERMAT [facility] [place] [place] [address] (Wo rk) documented as of this encounter Visit Diagnoses Not on filedocumented in this encounter Care Teams Ict Support Technicians Relationship Specialty Start Date End Date Lovely Vicente MD PCP - General 04/16/[address] [place] [address] documented as of this encounter
--- OUTSIDE RECORDS SUMMARY | 2022-03-06 08:11 | XMS_ITS | Encounter Summary ---
:1945 Author Organization [facility] [place] [address] Care Team Providers Name Role Phone Lovely Vicente MD Primary Care Provider Reason for Visit Reason Comments Follow-up Encounter Details Date Type Department Care Team Description 07/29/2017 Office Visit Cardiac Surgery at [facility] Yuan Retana MD S/P CABG x [address] [facility] [place] [address] CARDIOTHORACIC SURGERY [phone] [place], [place] [address] (Wo rk) Social History Tobacco [...] evaluation by vascular surgery. Yuan Retana MD [phone] documented in this encounter Plan of Treatment Upcoming Encounters Date Type Specialty Care Team Description 03/26/2022 Office Visit Cardiology Vitaliy Nobles MD [facility] [address] [place], [place] [address] (Wo rk) 06/10/2022 Office Visit Dermatology Laura Scherer MD [facility] DR TEJA GR-DERMAT [place]LOGY [place], [place] [address] (Wo rk) documented as of this encounter Visit Diagnoses Diagnosis S/P CABG x 3 Postsurgical aortocoronary bypass status documented in this encounter Care Teams Forest And Conservation Worker Relationship Specialty Start Date End Date Lovely Vicente MD PCP - General 04/16/15 [address] [place] [address] documented as of this encounter
--- OUTSIDE RECORDS SUMMARY | 2022-03-06 08:11 | XMS_ITS | Encounter Summary ---
:1945 [place] [address] Care Team Providers Name Role Phone Lovely Vicente MD Primary Care Provider Encounter Details Date Type Department Care Team Description 08/03/2017 Hospital Encounter Radiology [facility] [place], Tommy Mijares [facility] [place] [address] VASCULAR SURGERY [phone] [place], [place] [address] (Wo rk) Social History Tobacco [...] 03/26/2022 Office Visit Cardiology Vitaliy Nolbes MD [facility] CARDIOLOGY [place], [place] [address] ( rk) 06/10/2022 Office Visit Dermatology Laura Scherer MD [facility] DR TE[address] GR[address]DER[address] OLOG[address] [place], [place] [address] (Wo rk) documented as of [...] City/State/ZIP Code Phon e Number [facility] [place], [place] documented in this encounter Visit Diagnoses Diagnosis Pain Generalized pain documented in this encounter Care Teams Location Director Relationship Specialty Start Date End Date Lovely Vicente MD PCP - General 04/16/[address] [place] [address] documented as of this encounter
--- OUTSIDE RECORDS SUMMARY | 2022-03-06 08:11 | XMS_ITS | Encounter Summary ---
:1945 Author Organization [facility] [place] [address] Care Team Providers Name Role Phone Lovely Vicente MD Primary Care Provider Reason for Visit Auth/Cert Specialty Diagnoses / Procedures Referred By Contact Refer red To Contact Diagnoses Critical lower limb ischemia CELLULITIS RT FOOT Procedures EMERGENCY Referral ID Status Reason Start Date Expiration Date Visits Requ ested Visits Authorized [id number] 1 1 Encounter Details Date Type Department Care Team Description 08/04/2017 Laboratory Appointment Lab [address] [place] [address] Social History Tobacco Use Types Packs/Day [...] [facility] ER [address] TADE[address] [place], [place] [address] (Wo rk) 06/10/2022 Office Visit Dermatology Laura Scherer MD [facility] DR TE[address] [place], [place] [address] (Wo rk) documented as of this encounter Visit Diagnoses Not on filedocumented in this encounter Care Teams Novelty Chain Maker Relationship Specialty Start Date End Date Lovely Vicente MD PCP - General 04/16/[address] [place] [address] documented as of this encounter
--- OUTSIDE RECORDS SUMMARY | 2022-03-06 08:11 | XMS_ITS | Encounter Summary ---
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 [...] performed by Manny Mcknight MD at [facility] MAIN OR ??? PRO CABG, ARTERIAL, SINGLE N/A 07/07/2017 @CABG, USING ARTERIAL GRAFT;SINGLE ARTERIAL GRAFT (WRVU 33.75) performed by Yuan Retana MD at [facility] MAIN OR ??? PRO CABG, ARTERY-VEIN, TWO N/A 07/07/2017 @CABG, TWO VENOUS GRAFTS & ARTERIAL GRAFT (WRVU 7.93) performed by Yuan Retana MD at [facility] MAIN OR ??? PRO COLONOSCOPY, REMFlash MOCK, SNARE 01/16/2014 COLONOSCOPY, POLYPECTOMY, REMOVAL LESION BY SNARE performed by Nohemi Jaimes MD at [facility] ENDOSCOPY ??? PRO ENDOSCOPY W/VIDEO-ASST VEIN HARVEST, CABG Right 07/07/2017 ENDOSCOPIC HARVEST VEIN(S) FOR CABG (WRVU 0.31) performed by Yuan Retana MD at [facility] MAIN OR ??? 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 Hank Zhang Vascular Surgery, PGY2 Pager #[phone] Associated attestation - Arik Clement MD - [...] MD [facility] [address] T[address] [place], [place] [address] (Wo rk) 06/10/2022 Office Visit Dermatology Laura Scherer MD [facility] DR TEJA GR[address] OLOGY [place], [place] [address] (Wo rk) documented as [...] Component Value Ref Test Analysis Performed At [facility] gist Range Method Time Signature VB Text Department: Vascular Surgery Lab VASCUBASE Report Patient: [id number] (GREGORY FATIMA) CPT: 43201 ICD10: I82.541 Referring Physician: TAMIKO JIMÉNEZ ?? [...] Glucose 128 65 - 199 [facility] mg/dL [facility] Comment: Supplemental ranges: [...] City/[facility]/[place] [address] (ABNORMAL) D-Dimer, Quantitative (07/29/2017 2:15 PM EST) [facility] Method Time Signature D-Dimer, Quant 1,699 (H) 0 - 500 [facility] FEU ng/ml [facility] Comment: The D-Dimer [...] Jiménez MD HEMATOLOGY ORDERABLES Performing Organization Address [facility]/[place] [address] (ABNORMAL) Differential, Automated (07/29/2017 2:15 PM EST) [facility] Method Time Signature Neutrophils % 82.5 % [facility] Neutr Abs (ANC) 10.21 (H) 1.70 - [facility] 6.10 [facility] x10(3)/[facility] LABORATORY Lymphocytes % 7.1 % [facility] Lymphocytes Abs 0.9 0.9 - 3.2 [facility] x10(3)/[facility] LABORATORY Monocytes % 6.5 % [facility] Monocyte Abs 0.8 0.3 - 0.9 [facility] x10(3)/[facility] LABORATORY Eosinophils % 2.7 % [facility] Eosinophils Abs 0.3 0.0 - 0.4 [facility] x10(3)/[facility] LABORATORY Basophils % 0.6 % [facility] Basophils Abs 0.1 0.0 - 0.1 [facility] x10(3)/[facility] LABORATORY Immature Gran % 0.60 % [...] City/State/ZIP Code Phon e Number [place] [id number] (ABNORMAL) Hemogram (07/29/2017 2:15 PM EST) Analysis Performed At Patho logist Time Signature WBC 12.4 (H) 4.0 - 9.5 [facility] x10(3)/[facility] LABORATORY RBC 4.17 (L) 4.58 - [facility] 5.54 [facility] x10(6)/[facility] LABORATORY Hemoglobin 12.1 (L) 13.7 - [facility] 16.5 gm/dL [facility] Hematocrit 38.1 (L) 40.5 - [facility] 48.5 % [facility] MCV 91.4 82.9 - [facility] 93.1 [facility] LABORATORY MCH 29.0 27.5 - [facility] 32.1 pg [facility] MCHC 31.8 (L) 32.0 - [facility] 35.7 gm/dL [facility] Platelets 204 145 - 357 [facility] x10(3)/[facility] LABORATORY RDWSD 50.5 (H) 36.0 - [facility] 45.0 fL [facility] RDWCV 15.3 (H) 11.4 - [facility] 13.8 % [facility] MPV 9.4 7.6 - 12.9 [facility] LABORATORY nRBC % Auto 0.0 % [facility] nRBC Abs Auto 0.000 0.000 - [facility] 0.000 [facility] x10(3)/[facility] LABORATORY Specimen Anatomical Collection Method Collection Time Receive d Time (Source) Location / / Volume Laterality Blood specimen 07/29/2017 2:15 PM 018 2:36 (specimen) EST PM EST Resulting Agency Comment Spec In Lab Tamiko Jiménez MD HEMATOLOGY ORDERABLES Performing Organization Address City/State/ZIP Code Phon e Number [address] (ABNORMAL) Prothrombin Time (07/29/2017 [...] Address City/State/ZIP Code Phon e Number [address] Arterial Duplex Leg, Unil (07/29/2017 11:50 AM EST) Component Value Ref Test Analysis Performed At Patholo gist Range Method Time Signature VB Text Department: Vascular Surgery Lab VASCUBASE Report Patient: [id number] (GREGORY FATIMA) CPT: 22648 ICD10: Z09;I97.610 Referring Physician: TAMIKO JIMÉNEZ ?? [...] Test Analysis Performed At [facility] Range Method Time Signature VB Text Department: Vascular Surgery Lab VASCUBASE Report Patient: [id number] (GREGORY FATIMA) CPT: 22042 ICD10: I82.441 Referring Physician: ATMIKO JIMÉNEZ ?? Indications: 72 year old male [...] he calf. Notification: Marquis Pathak MD (pager #[phone]) was notif ied of the preliminary findings. [...] STAT documented in this encounter Care Teams Hair Worker Relationship Specialty Start Date End Date Lovely Vicente MD PCP - General 04/16/[address] [facility] [address] [place] [address] documented as of this encounter
--- OUTSIDE RECORDS SUMMARY | 2022-03-06 08:11 | XMS_ITS | Encounter Summary ---
:1945 Author Organization [facility] [place] [address] Care Team Providers Name Role Phone Lovely Vicente MD Primary Care Provider Reason for Visit Auth/Cert Specialty Diagnoses / Procedures Referred By Contact Refer red To Contact Diagnoses Critical lower limb ischemia CELLULITIS RT FOOT Procedures EMERGENCY Referral ID Status Reason Start Date Expiration Date Visits Requ ested Visits Authorized [id number] 1 1 Encounter Details Date Type Department Care Team Description 08/06/2017 Laboratory Appointment Lab at [facility] [place] [address] Social History Tobacco Use Types Packs/Day [...] Nobles MD [facility] ER DR TADEO [place], [place] [address] (Wo rk) 06/10/2022 Office Visit Dermatology Laura Scherer MD [facility] ER DR TEJA GR-DERMAT OLOGY [place], [place] [address] (Wo rk) documented as of [...] Signature Prealbumin 19 (L) 20 - 40 [facility]dL [facility] Comment: Prealbumin levels are generally lower [...] City/State/[place] [address] (ABNORMAL) Basic Metabolic Panel (non-fasting) (08/06/2017 12:32 PM EST) P athologist Signature Glucose Lvl 92 65 - 199 [facility] mg/dL [facility] LABORATORY [...] or in patients with acute kidney failure. [email or web address]/DHnkdep [email or web address]/DHMCnkf Specimen Anatomical Collection Method Collection Time Receive d Time (Source) Location / / Volume Laterality Blood specimen 08/06/2017 12:32 8 1:15 (specimen) PM EST PM EST Resulting Agency Comment Spec In Lab Arik Clement MD CHEMISTRY ORDERABLES Performing Organization Address City/State/[place] [address] (ABNORMAL) Hemogram (08/06/2017 12:32 PM EST) Analysis Performed At Patho logist Time Signature WBC 11.8 (H) 4.0 - 9.5 [facility] x10(3)/[facility] LABORATORY RBC 3.49 (L) 4.58 - [facility] 5.54 [facility] x10(6)/[facility] LABORATORY Hemoglobin 9.9 (L) 13.7 - [facility] 16.5 gm/dL [facility] Hematocrit 32.0 (L) 40.5 - [facility] 48.5 % [facility] MCV 91.7 82.9 - [facility] 93.1 fL [facility] MCH 28.4 27.5 - [facility] 32.1 pg [facility] MCHC 30.9 (L) 32.0 - [facility] 35.7 gm/dL [facility] Platelets 326 145 - 357 [facility] x10(3)/[facility] LABORATORY RDWSD 53.4 (H) 36.0 - [facility] 45.0 [facility] LABORATORY RDWCV 16.0 (H) 11.4 - [facility] 13.8 % [facility]ORATORY MPV 9.1 7.6 - 12.9 [facility] LABORATORY nRBC % Auto 0.0 % [facility] LABORATORY nRBC Abs Auto 0.000 0.000 - [facility] 0.000 [facility] x10(3)/[facility] LABORATORY Specimen Anatomical Collection Method Collection Time Receive d Time (Source) Location / / Volume Laterality Blood specimen 08/06/2017 12:32 8 1:15 (specimen) PM EST PM EST Resulting Agency Comment Spec In Lab Arik Clement MD HEMATOLOGY ORDERABLES Performing Organization Address City/State/[place] [address] documented in this encounter Visit Diagnoses Diagnosis Ischemia of foot Unspecified circulatory system disorder documented in this encounter Care Teams Research Worker Kitchen Relationship Specialty Start Date End Date Lovely Vicente MD PCP - General 04/16/[address] [place] [address] documented as of this encounter
--- OUTSIDE RECORDS SUMMARY | 2022-03-06 08:11 | XMS_ITS | Encounter Summary ---
:1945 Author Organization [facility] [place] [address] Care Team Providers Name Role Phone Lovely Vicente MD Primary Care Provider Encounter Details Date Type Department Care Team Description 07/29/2017 Transcribe Orders Laboratory Lovely Vicente MD [address] [address] [place], [place] [address] (Wo rk) Social History Tobacco Use Types [...] MD [facility] ER [address] TADEO [place], [place] [address] (Wo rk) 06/10/2022 Office Visit Dermatology Laura Scherer MD [facility] ER DR TEJA GR-DERMAT OLOGY [place], [place] [address] (Wo rk) documented as of this encounter Visit Diagnoses Not on filedocumented in this encounter Care Teams Bench Assembler Operator Relationship Specialty Start Date End Date Lovely Vicente MD PCP - General 04/16/[address] [facility] [place] [address] documented as of this encounter
--- OUTSIDE RECORDS SUMMARY | 2022-03-06 08:11 | XMS_ITS | Encounter Summary ---
:1945 [place] [address] Care Team Providers Name Role Phone Lovely Vicente MD Primary Care Provider Encounter Details Date Type Department Care Team Description 08/04/2017 Notes Only Cardiac Surgery Makayla Wilson [facility] [place] [address] CARDIAC SURGERY [phone] [place], [place] [address] (Wo rk) Social History Tobacco [...] Nobles MD [facility] CARDIOLOGY [place], [place] [address] (Wo rk) 06/10/2022 Office Visit Dermatology Laura Scherer MD [facility] DR [address]-DERMAT OLOGY [place], [place] [address] (Wo rk) documented as of this encounter Visit Diagnoses Not on filedocumented in this encounter Care Teams Supervisor Assembling Relationship Specialty Start Date End Date Lovely Vicente MD PCP - General 04/16/[address] [place] [address] documented as of this encounter
--- OUTSIDE RECORDS SUMMARY | 2022-03-06 08:11 | XMS_ITS | Encounter Summary ---
:1945 Author Organization [facility] Address [facility] [place] [address] Care Team Providers Name Role Phone Lovely Vicente MD Primary Care Provider Reason for Visit Auth/Cert Specialty Diagnoses / Procedures Referred By Contact Refer red To Contact Diagnoses Critical lower limb ischemia CELLULITIS RT FOOT Procedures EMERGENCY Referral ID Status Reason Start Date Expiration Date Visits Requ ested Visits Authorized [id number] 1 1 Encounter Details Date Type Department Care Team Description 08/04/2017 Laboratory Lab 3L [place] Cardiomyopathy, unspecified type; Appointment [facility] Systolic congestive heart failure, unspecified congestive heart failure chronicity; Hospital Coronary artery rupture; [facility] Ischemic cardiomyopathy; Drive Atherosclerosis of shinnecock co ronary artery, angina presence unspecified, unspecified whether shinnecock or transplanted heart; [place], [place] Essential hyper tension, malignant; [id number] 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 PROTHROMBIN TIME Routine 08/04/2017 12:55 Coronary artery Resu lts for this PM EST rupture procedure are in Ischemic the results cardiomyopathy section. Atherosclerosis of shinnecock coronary artery, angina presence unspecified, unspecified whether shinnecock or transplanted heart URIC ACID Routine 08/04/2017 [...] with the results diabetic section. nephropathy, unspecified machine long goods helper insulin use status Essential hypertension, malignant COMPREHENSIVE Routine 08/04/2017 12:55 Essential Results fo r this METABOLIC PANEL PM EST hypertension, procedure a re in (NON-FASTING) malignant the results section. documented in this encounter Results Uric acid (08/04/2017 12:55 PM EST) P athologist Signature Uric Acid 7.1 3.5 - 8.5 [facility] mg/dL [facility] Specimen Anatomical Collection Method Collection Time Receive d Time (Source) Location / / Volume Laterality Blood specimen 08/04/2017 12:55 8 1:01 (specimen) PM EST PM EST Resulting Agency Comment Spec In Lab Lovely Vicente MD CHEMISTRY ORDERABLES Performing Organization Address City/State/[place] [address] (ABNORMAL) Hemogram (08/04/2017 12:55 PM EST) Analysis Performed At Patho logist Time Signature WBC 15.8 (H) 4.0 - 9.5 [facility] LABORATORY RBC 3.48 (L) 4.58 - [place] RYAN 5.54 [facility] x10(6)/[facility] LABORATORY Hemoglobin 9.9 (L) 13.7 - [facility] 16.[facility] gm/dL [facility] Hematocrit 31.4 (L) 40.5 - [facility] 48.5 % [facility] MCV 90.2 82.9 - [facility] 93.1 [facility] LABORATORY MCH 28.4 27.5 - [place] R[place] 32.1 pg [facility] MCHC 31.5 (L) 32.0 - [facility] 35.7 gm/dL [facility] Platelets 310 145 - 357 [facility] x10(3)/[facility] LABORATORY RDWSD 51.8 (H) 36.0 - [facility] 45.0 [facility] LABORATORY RDWCV 15.8 (H) 11.4 - [facility] 13.8 % [facility] MPV 8.9 7.6 - 12.9 [facility] LABORATORY nRBC % Auto 0.0 % [facility] LABORATORY nRBC Abs Auto 0.000 0.000 - [facility] 0.000 [facility] x10(3)/[facility] LABORATORY Specimen Anatomical Collection Method Collection Time Receive d Time (Source) Location / / Volume Laterality Blood specimen 08/04/2017 12:55 8 1:01 (specimen) PM EST PM EST Resulting Agency Comment Spec In Lab Lovely Vicente MD HEMATOLOGY ORDERABLES Performing Organization Address City/State/[place] [address] (ABNORMAL) Comprehensive metabolic panel (non-fasting) (08/04/2017 12:55 PM EST) P athologist Signature Glucose Lvl 208 (H) 65 - 199 [facility] mg/dL [facility] Comment: Diabetes: >=200 mg/dL plus symp toms BUN 32 (H) 10 - 20 mg/dL [facility] Creatinine 1.58 (H) 0.80 - 1.50 mg/dL [facility] Sodium 136 135 - 145 mmol/L [facility] Potassium 5.5 (H) 3.5 - 5.0 mmol/L [facility] [...] - 10.5 mg/dL [facility] Total Protein 6.9 6.1 - 8.0 gm/dL [facility] Albumin 3.4 3.2 - 5.2 gm/dL [facility] AST 20 0 - 39 unit/L [facility] ALT 21 0 - 55 unit/L [facility] Alk Phos 93 40 - 120 unit/L [facility] Total Bilirubin 0.4 0.2 - 1.3 mg/dL [facility] Estimated GFR 43 (L) >=60 [facility] Comment: The reported eGFR should be multiplied b y 1.2 for patients. The MDRD is not an appropriate measure o f renal function for patients with body mass extremes or in patients with acute kidney failure. http://PrintEco.Status4/DHnkdep http://PrintEco.Status4/DHMCnkf Specimen Anatomical Collection Method Collection Time Receive d Time (Source) Location / / Volume Laterality Blood specimen 08/04/2017 12:55 8 1:01 (specimen) PM EST PM EST Resulting Agency Comment Spec In Lab Lovely Vicente MD CHEMISTRY ORDERABLES Performing Organization Address City/State/[place] [address] (ABNORMAL) Hemoglobin A1c (08/04/2017 12:55 PM EST) Analysis Performed At [facility] Time Signature Hemoglobin A1C 6.2 (H) 4.3 - 5.[address] [facility] Comment: Reference Range: 4.3 - [...] Mellitus, Diabetes Care 2013; 36: Suppl. 1, L07-70 Est Avg Gluc See note mg/dL [facility] Comment: Estimated Average Glucose [...] into estimated average glucose values. ??Diabetes Care 2008:31(8):5927-5778. Specimen Anatomical Collection Method Collection Time Receive d Time (Source) Location / / Volume Laterality Blood specimen 08/04/2017 12:55 8 1:01 (specimen) PM EST PM EST Resulting Agency Comment Spec In Lab Lovely Vicente MD CHEMISTRY ORDERABLES Performing Organization Address City/[facility]/[place] [address] (ABNORMAL) Prothrombin Time (08/04/2017 12:55 PM EST) P athologist Signature PT 35.4 (H) 11.8 - 14.0 [facility] LABORATORY INR 3.5 (H) 0.9 - 1.1 [facility] [...] [facility]/[place] [address] (ABNORMAL) pro-Brain Natriuretic Peptide (08/04/2017 12:55 PM EST) P athologist Signature ProBNP 3,133 (H) <=125 [facility] pg/mL [facility] Specimen Anatomical Collection Method Collection Time Receive d Time (Source) Location / / Volume Laterality Blood specimen 08/04/2017 12:55 8 1:01 (specimen) PM EST PM EST Resulting Agency Comment Spec In Lab Danette Maxwell APRN CHEMISTRY ORDERABLES Performing Organization Address City/[facility]/[place]IP [place] [address] documented in this encounter Visit Diagnoses Diagnosis Cardiomyopathy, unspecified type Systolic congestive heart failure, unspe cified congestive heart failure chronicity Coronary artery rupture Acute myocardial infarction, unspecified site, episode of care unspecified Ischemic cardiomyopathy Other specified forms of chronic ischemi c heart disease Atherosclerosis of shinnecock coronary arter y, angina presence unspecified, unspecified whether shinnecock or transplanted heart Essential hypertension, malignant Diabetes mellitus due to underlying cond ition with diabetic nephropathy, unspecified machine long goods helper insulin use status documented in this encounter Care Teams Recreational Leader Relationship Specialty Start Date End Date Lovely Vicente MD PCP - General 04/16/[address] [place] [address] documented as of this encounter
--- OUTSIDE RECORDS SUMMARY | 2022-03-06 08:11 | XMS_ITS | Encounter Summary ---
:1945 Author Organization [facility] [place] [address] Care Team Providers Name Role Phone Lovely Vicente MD Primary Care Provider Encounter Details Date Type Department Care Team Description 07/29/2017 Transcribe Orders Laboratory Lovely Vicente MD [address] [address] [place], [place] [id number] (Wo rk) Social History Tobacco Use Types [...] Nobles MD [facility] ER DR TADEO [place], [place] [address] (Wo rk) 06/10/2022 Office Visit Dermatology Laura Scherer MD [facility] ER DR TEJA GR-DERMAT [place], [place] [address] (Wo rk) documented as of this encounter Visit Diagnoses Not on filedocumented in this encounter Care Teams Hand Surgeon Relationship Specialty Start Date End Date Lovely Vicente MD PCP - General 04/16/[address] [facility] [address] [place] [address] documented as of this encounter
--- OUTSIDE RECORDS SUMMARY | 2022-03-06 08:11 | XMS_ITS | Encounter Summary ---
:1945 [place] [address] Care Team Providers Name Role Phone Lovely Vicente MD Primary Care Provider Encounter Details Date Type Department Care Team Description 08/04/2017 Orders Only Cardiac Surgery Makayla Wilson APRN [facility] Jorge [facility] [place] [place] [address] CARDIAC SURGERY [phone] [place], [place] [address] (Wo rk) Social History [...] [facility] ER DR [place]LE [place], [place] [address] (Wo rk) 06/10/2022 Office Visit Dermatology Laura Scherer MD [facility] DR [address] [place], [place] [address] (Wo rk) documented as of this encounter Visit Diagnoses Not on filedocumented in this encounter Care Teams Strategic Intelligence Officer Relationship Specialty Start Date End Date Lovely Vicente MD PCP - General 04/16/15 [address] [place] [address] documented as of this encounter
--- OUTSIDE RECORDS SUMMARY | 2022-03-06 08:11 | XMS_ITS | Encounter Summary ---
:1945 [place] [address] Care Team Providers Name Role Phone Lovely Vicente MD Primary Care Provider Encounter Details Date Type Department Care Team Description 08/05/2017 Notes Only Vascular Surgery at [facility] [place], [place] [address] VASCULAR SURGERY [phone] [place], [place] [address] (Wo rk) Social History Tobacco [...] Cardiology Vitaliy Nobles MD [facility] ER DR TADEO [place], [place] [address] (Wo rk) 06/10/2022 Office Visit Dermatology Laura Scherer MD [facility] [address] [place], [place] [address] (Wo rk) documented as of this encounter Visit Diagnoses Not on filedocumented in this encounter Care Teams Heating Element Winder Relationship Specialty Start Date End Date Lovely Vicente MD PCP - General 04/16/[address] [place] [address] documented as of this encounter
--- OUTSIDE RECORDS SUMMARY | 2022-03-06 08:11 | XMS_ITS | Encounter Summary ---
:1945 [place] [address] Care Team Providers Name Role Phone Lovely Vicente MD Primary Care Provider Encounter Details Date Type Department Care Team Description 08/04/2017 Notes Only Pain Management at Barbra Bruno, STACIE [facility] [place] [address] [place] [address] [phone] (Wo rk) Social History Tobacco Use Types [...] bid) at this time. Barbra Soares, MSN, CUTTER ALUMINUM SHEET-BC, [facility] Pain Management Clinic documented in this encounter Plan of Treatment Upcoming Encounters Date Type Specialty Care Team Description 03/26/2022 Office Visit Cardiology Vitaliy Nobles MD [facility] ER DR TADEO [place], [place] [address] (Wo rk) 06/10/2022 Office Visit Dermatology Laura Scherer MD [facility] [address] [place], [place] [address] (Wo rk) documented as of this encounter Visit Diagnoses Not on filedocumented in this encounter Care Teams Instructional Resource Teacher Relationship Specialty Start Date End Date Lovely Vicente MD PCP - General 04/16/[address] [place] [address] documented as of this encounter
--- OUTSIDE RECORDS SUMMARY | 2022-03-06 08:11 | XMS_ITS | Encounter Summary ---
:1945 Author Organization [facility] [place] [address] Care Team Providers Name Role Phone Lovely Vicente MD Primary Care Provider Reason for Visit Reason Comments Pain Management Ankle Pain Toe Pain Encounter Details Date Type Department Care Team Description 07/30/2017 Office Visit Pain Management at Barbra Soares, Per ipheral neuropathy [place] CIRCUIT [address] CLERK due to ischemia [facility] [address] [place], [place], [place] [phone] Social History Tobacco Use Types Packs/Day Years [...] Soares APRN - 07/30/2017 1:45 PM EST [facility] [place] [address] Phone: PAIN MANAGEMENT NEW PATIENT / CONSULTATION NOTE DATE OF VISIT 07/30/2017 Patient Don Fatima 1945 REFERRING PROVIDER Lovely Vicente MD [address] [place] [address] PRIMARY CARE PROVIDER Lovely Vicente MD CHIEF [...] THERAPIES: Nothing MEDICATIONS The [place] and [place] Prescription Monitoring Program was checked and no [...] SETUP performed by Manny Mcknight MD at [facility] OR ??? PRO CABG, ARTERIAL, SINGLE N/A 07/07/2017 @CABG, USING ARTERIAL GRAFT;SINGLE ARTERIAL GRAFT (WRVU 33.75) performed by Yuan Retana MD at [facility] OR ??? PRO CABG, ARTERY-VEIN, TWO N/A 07/07/2017 @CABG, TWO VENOUS GRAFTS & ARTERIAL GRAFT (WRVU 7.93) performed by Yuan Retana MD at [facility] OR ??? PRO COLONOSCOPY, REMV LESN, SNARE 01/16/2014 COLONOSCOPY, POLYPECTOMY, REMOVAL LESION BY SNARE performed by Nohemi Jaimes MD at [facility] ENDOSCOPY ??? PRO ENDOSCOPY W/VIDEO-ASST VEIN HARVEST, CABG Right 07/07/2017 ENDOSCOPIC HARVEST VEIN(S) FOR CABG (WRVU 0.31) performed by Yuan Retana MD at [facility] OR ??? PRO THYROIDECTOMY 03/28/2013 THYROIDECTOMY, [...] referral, Lovely Vicente MD [address] [place] [address]. 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
--- OUTSIDE RECORDS SUMMARY | 2022-03-06 08:11 | XMS_ITS | Encounter Summary ---
:1945 [place] [address] Care Team Providers Name Role Phone Lovely Vicente MD Primary Care Provider Encounter Details Date Type Department Care Team Description 07/29/2017 Telephone Pain Aurelia Crawford MD [facility] [place] [address] PAIN CLINIC [phone] [place], [place] [address] (Wo rk) Social History Tobacco [...] Vitaliy Nobles MD [facility] MEDICAL [facility] ER CARDIOLOGY [place], [place] [address] (Wo rk) 06/10/2022 Office Visit Dermatology Laura Scherer MD [facility] [address] [place], [place] [address] (Wo rk) documented as of this encounter Visit Diagnoses Not on filedocumented in this encounter Care Teams Quality Control Lead Relationship Specialty Start Date End Date Lovely Vicente MD PCP - General 04/16/15 [facility] [address] [place] [address] documented as of this encounter
--- OUTSIDE RECORDS SUMMARY | 2022-03-06 08:11 | XMS_ITS | Encounter Summary ---
:1945 Author Organization [facility] [place] [address] Care Team Providers Name Role Phone Lovely Vicente MD Primary Care Provider Reason for Visit Auth/Cert Specialty Diagnoses / Procedures Referred By Contact Refer red To Contact Diagnoses Critical lower limb ischemia CELLULITIS RT FOOT Procedures EMERGENCY Referral ID Status Reason Start Date Expiration Date Visits Requ ested Visits Authorized [id number] 1 1 Encounter Details Date Type Department Care Team Description 08/06/2017 Hospital Encounter [facility] [address] Social History Tobacco Use Types Packs/Day [...] Nobles MD [facility] ER CARDIOLOGY [place], [place] [address] (Wo rk) 06/10/2022 Office Visit Dermatology Laura Scherer MD [facility] DR [address] [facility] [place], [place] [address] (Wo rk) documented as of this encounter Visit Diagnoses Not on filedocumented in this encounter Care Teams Plaster Machine Operator Relationship Specialty Start Date End Date Lovely Vicente MD PCP - General 04/16/[address] [place] [address] documented as of this encounter
--- OUTSIDE RECORDS SUMMARY | 2022-03-06 08:11 | XMS_ITS | Encounter Summary ---
:1945 [place] [address] Care Team Providers Name Role Phone Lovely Vicente MD Primary Care Provider Reason for Visit Auth/Cert Specialty Diagnoses / Procedures Referred By Contact Refer red To Contact Diagnoses Critical lower limb ischemia CELLULITIS RT FOOT Procedures EMERGENCY Referral ID Status Reason Start Date Expiration Date Visits Requ ested Visits Authorized [id number] 1 1 Encounter Details Date Type Department Care Team Description 08/09/2017 Anesthesia Event Main Operating Room Daniele Lizama MD [facility] AN[place] [address] [facility] Rob Jones MD [facility] [place] [address] [place] [address] Anesthesia Record Procedure Summary Procedure Name [...] Knowles, Dory arm), right; VAMSI Rios, RN xyey-ouk-jsvfvw catheter system; 20 gauge; 08/16/17; 1047 PIV 07/29/17; 1413; median 07/29/17 1413 by 08/16/17 1047 by cubital vein (antecubital Magdalene Hickey Williams, Dory fossa), left; VAMSI Wyatt, RN xvwy-yri-gdjlbj catheter system; 20 gauge; 08/16/17; 1047 PIV 08/06/17; 1742; cephalic 08/06/17 1742 by 0920 by vein (lateral side of Taylor Laureano Danah y, Caitlyn C, arm), right; VAMSI BONNER fkfj-rgv-dcmhvt catheter system; 22 gauge, 1 in length; Eliseo LAUREANO RN VAS; distraction, intradermal injection, tolerated well, appears comfortable; 0; 08/16/17; 0920 Wound 08/07/17; 1335; knee; 08/07/17 1335 by 08/16/17 1047 by laceration; wound occured Barbara Albert iams, Dory GERIATRICIAN; 08/16/17; 1047 VAMSI Alonzo, RN PIV 08/07/17; 1734; cephalic 08/07/17 1734 by 1047 by vein (lateral side of Kendrick, Carlos W, Willia ms, Dory arm), left; MARCIE Wyatt RN oeaa-pmd-kmtkdc catheter system; 22 gauge; distraction, intradermal injection, [...] MD - 08/09/2017 9:01 AM EST [facility] Department of Anesthesiology Post-procedure Note Patient: Don Fatima Procedure Summary Date Anesthesia Start Anesthesia Stop Room / Location 08/09/17 0802 0901 [facility] OR 14 / [facility] MAIN OR Procedure Diagnosis Surgeon Responsible Provider AMPUTATION, 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 Nerve [...] SETUP performed by Manny Mcknight MD at [facility] MAIN OR ??? PRO CABG, ARTERIAL, SINGLE N/A 07/07/2017 @CABG, USING ARTERIAL GRAFT;SINGLE ARTERIAL GRAFT (WRVU 33.75) performed by Yuan Retana MD at [facility] MAIN OR ??? PRO CABG, ARTERY-VEIN, TWO N/A 07/07/2017 @CABG, TWO VENOUS GRAFTS & ARTERIAL GRAFT (WRVU 7.93) performed by Yuan Retana MD at [facility] MAIN OR ??? PRO COLONOSCOPY, REMV LESN, SNARE 01/16/2014 COLONOSCOPY, POLYPECTOMY, REMOVAL LESION BY SNARE performed by Nohemi Jaimes MD at [facility] ENDOSCOPY ??? PRO ENDOSCOPY W/VIDEO-ASST VEIN HARVEST, CABG Right 07/07/2017 ENDOSCOPIC HARVEST VEIN(S) FOR CABG (WRVU 0.31) performed by Yuan Retana MD at [facility] MAIN OR ??? PRO THYROIDECTOMY 03/28/2013 THYROIDECTOMY, TOTAL OR COMPLETE performed by Manny Mcknight MD at [facility] MAIN OR Social History Substance [...] adequate IV access. Brody Santillan MD PGY-2, Roll Cutting Operator Pager #[phone] Anesthesiology Staff (Dewhirst): Pre-op summary note as [...] MD [facility] [address] [place], [place] [address] (Wo rk) 06/10/2022 Office Visit Dermatology Laura Scherer MD [facility] [address] [place], [place] [address] (Wo rk) documented as [...] Length: 10 cm Gauge: 21 Needle Type: A-cgijx-fnccm Medication injection made in crementally with aspirations. [...] Procedure) documented in this encounter Care Teams Thread Reeler Relationship Specialty Start Date End Date Lovely Vicente MD PCP - General 04/16/[address] [place] [address] documented as of this encounter
--- OUTSIDE RECORDS SUMMARY | 2022-03-06 08:11 | XMS_ITS | Encounter Summary ---
:1945 Author Organization [facility] [place] [address] Care Team Providers Name Role Phone Lovely Vicente MD Primary Care Provider Reason for Visit Auth/Cert Specialty Diagnoses / Procedures Referred By Contact Refer red To Contact Diagnoses Critical lower limb ischemia CELLULITIS RT FOOT Procedures EMERGENCY Referral ID Status Reason Start Date Expiration Date Visits Requ ested Visits Authorized [id number] 1 1 Encounter Details Date Type Department Care Team Description 08/09/2017 Surgery Main Operating Room Yonathan Smith AM PUTATION, Mary Hitchcock MD TRANSMETATARSAL ([facility] 12.71) [facility] [place] [address] [place] [address] [phone] Social History Tobacco Use Types Packs/Day Years [...] 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 Patient [...] Dorsalis Pedis (Ankle) Artery ?132 ? 0.94 ??Isanti-Biphasic ? Posterior Tibial (Ankle) Artery ??154 ? 1.10 ??Isanti-Biphasic ? Fourth Toe ? 67 ?0.48 ?? [...] Discharge Conditions/Prognosis: Good Discharge to: [facility] Rehab Discharge Medications: Your Medications New [...] For any problems or questions please call [phone] ZELDA Smith, routeman Nurse Clinician For issues on weeknights after 5pm and weekends please call [phone] and ask for the Vascular Fellow consultant internship. General Instructions None Future Appointments and Orders Future Appointments Provider Department Dept Phone 08/26/2017 4:00 PM Aurelia Rivera PA [facility] [place] [phone] 09/07/2017 3:00 PM LAB, THREE L Lab 3L [facility] [phone] 09/07/2017 4:00 PM Luz Prescott MD Endocrinology at [place] [phone] 09/09/2017 8:00 AM Barbra Soares APRN Pain Management [facility] [place] [phone] Please bring a list of your current [...] For any problems or questions please call [phone] ZELDA Smith, routeman Nurse Clinician For issues on weeknights after 5pm and weekends please call [phone] and ask for the Vascular Fellow consultant internship. documented in this encounter Medications at Time [...] of Care Management Discharge Note Patient Destination: [facility] ([facility]) [address] [id number] Transportation: with (at bedside) Time of Discharge: by 12 noon Level of Care: swing Patient Aware: yes Family Notified: yes Md to call report to: Yissel Quintero PHYSICAL LABORATORY ASSISTANT already called RN to call report to: [phone] Shirin Wolf Office of Care Management Pager [phone] Shirin Wolf RN - 08/16/2017 10:50 AM EST [facility] has offered pt swing bed. Pt and accept bed. will transport via car. PHYSICAL LABORATORY ASSISTANT Yissel Quintero aware; d/c paperwork will be completed by 12 noon. [facility] requests pt arrival by 1400 today; PHYSICAL LABORATORY ASSISTANT, RN, and family aware. PHYSICAL LABORATORY ASSISTANT called [facility] and was told that they prefer pt to arrive with wound vac dressing applied but clamped. PHYSICAL LABORATORY ASSISTANT applied new wound vac dressing. RN has [facility] number to call report. PASSR completed; PHYSICAL LABORATORY ASSISTANT paged to request provider signature in highlighted space. Indigo from [facility] notified via email that home wound vac now cancelled; [facility] has picked up from room and order cancelled. Packet started and provided to community aide. Medicare important message explained to patient, patient signed. Copy provided to patient and signature page to OCM for inclusion in pt EMR. L Radha Powers Yoselin - 08/16/2017 10:34 AM EST Office of Care Management/Tool Grinding Machine Operator Patient Name: Gregory Hoang : 1945 Patient has been offered a swing bed at [facility]. The patient will be transported by private transportation. No MD to MD report necessary Please call Nursing Report to [phone], ask for jewelry technician. Info to accompany patient: Narcotic Prescriptions Copies of Medication Administration Records and IV sheets for past 10 days. Plan: Tool Grinding Machine Operator will be available to the patient and Motor Coach Chauffeur-RN and/or Underground Repairer for further assistance. Patient will be discharged to: [place] [id number] Radha Powers, Tool Grinding Machine Operator Mira Truong, VAMSI - 08/15/2017 10:05 PM EST [address] Flores to ask if he wanted to hold metoprolol dose. BP 95/58. OK to hold this dose Courtney Brito - 08/15/2017 3:26 PM EST Office of Care Management(OCM)/Tool Grinding Machine Operator(RS)/ D/C Planning re : Patient is medically ready for d/c today. RS has been in contact with [facility] to see if they could offer a bed. [facility] is still reviewing the case and need their MD to review chart prior to accepting or declining. OCM team needs to check in with [facility] tomorrow to check on status. 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 . Contacted by direct care RN, who said that patient and would like information about patient's referral to: [facility] PHONE: [phone] FAX: [phone] CM spoke with RS who said that [...] would be accepted to acute rehab at [facility] as Dr. Smith had [...] rehab. Await recommendations from PT. Covering pager #[phone]. 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 Marine Engine Driver Kaitlin Saha, RN Pager #[phone] Payam Rosales - 08/13/2017 2:37 PM EST Director Of Sustainability Programs Encounter Note Patient Name: Gregory Hoang : [id number] MR#: [id number] Admit Date: 08/06/2017 1:41 PM Hospital Day 7 days Narrative: Visited to introduce and assess acceptance of Director Of Sustainability Programs services. Pt was awake, alert, oriented and in chair and family was there. Assessment:Patient coping positively with stresses of illness/hospitalization at this time. Pt says that he is hoping to get better and his family was there. Pt says that he has family care and supportand taking one day at time. Intervention and Outcome: Provided emotional support and encouraging presence. 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 A letter describing our affiliations was reviewed with them and theywere educated about their right to choose where referrals are placed. Patient requests referral to [facility] [employer]. PHONE: [phone] FAX: [phone]. And Home NPWT (Negative Pressure Wound Therapy) aka wound vac device made available to pt. Serial # confirmed. Reviewed [facility] Proof of Delivery/Assignment of Benefits Statement(POD/AOB) Form w patient or authorized agent signing on behalf of patient. Copy of POD/AOB provided to pt and other copy faxed to [employer] @ fax# [phone] Expected date of discharge: 08/12/2017. 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 Address: [address] [place] [address] [place] [address] (home) Mobile: Telephone Information: Referring Provider: No [...] performed by Manny Mcknight MD at [facility] ??? PRO CABG, ARTERIAL, SINGLE N/A 07/07/2017 @CABG, USING ARTERIAL GRAFT;SINGLE ARTERIAL GRAFT (WRVU 33.75) performed by Yuan Retana MD at [facility] ??? PRO CABG, ARTERY-VEIN, TWO N/A 07/07/2017 @CABG, TWO VENOUS GRAFTS & ARTERIAL GRAFT (WRVU 7.93) performed by Yuan Retana MD at [facility] OR ??? PRO COLONOSCOPY, REMV LESN, SNARE 01/16/2014 COLONOSCOPY, POLYPECTOMY, REMOVAL LESION BY SNARE performed by Nohemi Jaimes MD at [facility] ENDOSCOPY ??? PRO ENDOSCOPY W/VIDEO-ASST VEIN HARVEST, CABG Right 07/07/2017 ENDOSCOPIC HARVEST VEIN(S) FOR CABG (WRVU 0.31) performed by Yuan Retana MD at [facility] ??? 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 Address: [address] [place] [address] [place] [address] (home) Mobile: Telephone Information: Referring Provider: No [...] wall L98.9 ??? Goiter E04.9 ??? MARIA VICTORAI (obstructive sleep apnea) on CPAP G47.33 ??? [...] performed by Manny Mcknight MD at [facility] ??? PRO CABG, ARTERIAL, SINGLE N/A 07/07/2017 @CABG, USING ARTERIAL GRAFT;SINGLE ARTERIAL GRAFT (WRVU 33.75) performed by Yuan Retana MD at [facility] ??? PRO CABG, ARTERY-VEIN, TWO N/A 07/07/2017 @CABG, TWO VENOUS GRAFTS & ARTERIAL GRAFT (WRVU 7.93) performed by Yuan Retana MD at [facility] OR ??? PRO COLONOSCOPY, REMV LESN, SNARE 01/16/2014 COLONOSCOPY, POLYPECTOMY, REMOVAL LESION BY SNARE performed by Nohemi Jaimes MD at [facility] ENDOSCOPY ??? PRO ENDOSCOPY W/VIDEO-ASST VEIN HARVEST, CABG Right 07/07/2017 ENDOSCOPIC HARVEST VEIN(S) FOR CABG (WRVU 0.31) performed by Yuan Retana MD at [facility] ??? 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 Unsuccessful draw attempt, another barrel finisher will come [facility] to collect blood for PTT test. 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 Vascular resident consultant internship and will forward result to the team prior to rounds. 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 Patient [...] performed by Manny Mcknight MD at [facility] OR ??? PRO CABG, ARTERIAL, SINGLE N/A 07/07/2017 @CABG, USING ARTERIAL GRAFT;SINGLE ARTERIAL GRAFT (WRVU 33.75) performed by Yuan Retana MD at [facility] ??? PRO CABG, ARTERY-VEIN, TWO N/A 07/07/2017 @CABG, TWO VENOUS GRAFTS & ARTERIAL GRAFT (WRVU 7.93) performed by Yuan Retana MD at [facility] ??? PRO COLONOSCOPY, REMV LESN, SNARE 01/16/2014 COLONOSCOPY, POLYPECTOMY, REMOVAL LESION BY SNARE performed by Nohemi Jaimes MD at [facility] ENDOSCOPY ??? PRO ENDOSCOPY W/VIDEO-ASST VEIN HARVEST, CABG Right 07/07/2017 ENDOSCOPIC HARVEST VEIN(S) FOR CABG (WRVU 0.31) performed by Yuan Retana MD at [facility] ??? PRO THYROIDECTOMY 03/28/2013 THYROIDECTOMY, TOTAL OR COMPLETE performed by Manny Mcknight MD at [facility] Functional Status/Social Hx: Quit [...] left blue toes with CTA showing R FIELD ENGINEER pseudoaneurysm (now thrombosed) and occluded ATs bilaterally. [...] 2.5x80 5. Completion RLE angiogram 6. L FIELD ENGINEER angiogram 7. 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 - L FIELD ENGINEER angriogram demonstrated: High femoral bifurcation over the proximal half of the femoral head. L FIELD ENGINEER access in the distal L FIELD ENGINEER. - Closure device: Mynx Technical Procedure: The [...] for a 45cm 5F Destination. V18 and Maud and QuickCross catheters were used to select [...] 5F. A stationed picture of the L FIELD ENGINEER was performed as the patient was noted to have a very high bifurcation. Access appeared in the distal R FIELD ENGINEER. Closure and sheath removal was performed with [...] PM EST 1440 report called to 5 [place] nurse Tessa RN documented in this encounter [...] and pt's spouse. Discharge to [facility]. Goal: Individualization & Mutuality Outcome: Outcome [...] supine -- Bed Mobility Goal, Elbert Level independent -- Bed Mobility Goal, Date [...] days -- Transfer Training Goal, Activity Type opo-rm-pipoa/dijco-dj-snp -- Transfer Train Goal, Elbert Level conditional independence -- Transfer Train Goal, [...] call cabello within reach, Hourly rounding by RN/JAVA SOFTWARE DEVELOPER. Bed alarm / Chair alarm. Patient-specific fall [...] Smith MD - 08/15/2017 6:28 PM EST [facility] Operative Note Patient Name: Gregory Hoang : [id number] MR#: [id number] Case Date: 08/09/2017 Surgeon: Surgeon(s) and Role: [...] 2.5x80 5. Completion RLE angiogram 6. L FIELD ENGINEER angiogram 7. Mynx closure Precautions/Restrictions: fall, sternal [...] other (see comments) (or swing bed) Pager: [phone] BASSAM ELIAS, PT 08/14/2017 Inpatient Physical Therapy [...] to Achieve by discharge Gait Training Goal, Elbert Level conditional independence;set up required Gait Training [...] over the weekend except for [facility]. CM spoke with [facility] CM Drea Sandhu, VAMSI who said that they do not anticipate any beds over the weekend. Reviewed with patient/ that they need to be aware that patient will need to take the first bed offered at the facilities that they make referrals to. Their choices are: 1- [facility] PHONE: [phone] FAX: [phone] 2- [facility] ([facility]) [address] [place] [address] 3- [facility])([facility]) [address] [place] [address] I have discussed Medicare/Private Insurance [...] RS/CM on Wednesday to follow-up. Covering pager #[phone] for today. Plan of Care - Henrique [...] with additional findings of pseudoaneurysm on R FIELD ENGINEER and bilateral anterior tibial artery occlusions. Was [...] an outpatient once discharged. Have patient call [phone] to set up an appointment. Follow-up: Dermatology will sign-off for now. Please do not hesitate to contact us if you have any questions orconcerns. Impression and Recommendations discussed with primary team on 08/13/2017. Karo Henderson MD Resident in Dermatology Section of Dermatology, Department of Surgery [facility] Pager [phone] Patient seen and evaluated with staff Credit Union Examiner: Halima Cordero MD Section of Dermatology [facility] Level of Resident Supervision: Direct Supervision (The [...] Outcome: Ongoing (Interventions Implemented as Appropriate) 08/12/17 6756 Coping/Psychosocial Plan Of Care Reviewed With patient;spouse [...] 2.5x80 5. Completion RLE angiogram 6. L FIELD ENGINEER angiogram 7. Mynx closure Active Non-Hospital Problems [...] home with home health ([facility] PT[facility]OT) Pager: [phone] YASIR TELLO OT 08/12/2017 Occupational Therapy Rehabilitation [...] 2.5x80 5. Completion RLE angiogram 6. L FIELD ENGINEER angiogram 7. Mynx closure Past Medical History: [...] with 24/7 assistance and maximal services) Pager: [phone] NICHOLAS MORA, PT 08/12/2017 Physical Therapy Rehabilitation [...] supine -- Bed Mobility Goal, Elbert Level independent -- Bed Mobility Goal, Outcome Achieved -- goal ongoing Goal: Gait Training Goal Stand Alone Therapy Goal Outcome: Ongoing (Interventions Implemented as Appropriate) 08/11/17 1310 08/12/17 1510 Gait Training Goal Gait Training Goal, Date Established 08/11/17 -- Gait Training Goal, Time to Achieve 5 - 7 days -- Gait Training Goal, Elbert Level conditional independence -- Gait Training Goal, [...] days -- Transfer Training Goal, Activity Type ulx-mk-bkjsr/zumro-gh-pvn -- Transfer Train Goal, Elbert Level conditional independence -- Transfer Training Goal, [...] Smith MD - 08/11/2017 2:52 PM EST 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 Plan of Care - Lawernce Gonzalez, PT - 08/11/2017 1:19 PM EST [...] 2.5x80 5. Completion RLE angiogram 6. L FIELD ENGINEER angiogram 7. Mynx closure He is very [...] Anticipated Discharge Disposition: inpatient rehabilitation facility Pager: [phone] LAWRENCE GONZALEZ, PT 08/11/2017 Physical Therapy Rehabilitation [...] to supine Bed Mobility Goal, Elbert Level independent Goal: Gait Training Goal Stand Alone Therapy Goal Outcome: Ongoing (Interventions Implemented as Appropriate) 08/11/17 1310 Gait Training Goal Gait Training Goal, Date Established 08/11/17 Gait Training Goal, Time to Achieve 5 - 7 days Gait Training Goal, Elbert Level conditional independence Gait Training Goal, Assist [...] 7 days Transfer Training Goal, Activity Type het-ve-bfppv/tglwn-ek-cvh Transfer Train Goal, Elbert Level conditional independence Plan of David DelloAnnetta [...] call cabello within reach, Hourly rounding by RN/JAVA SOFTWARE DEVELOPER. Bed alarm / Chair alarm. ? Patient-specific [...] 04/05/2013 Hospitalizations Within the Past 30 Days: [facility] 07/20/2017 Anticipated Length Of Stay (If known): Expected Length of Hospitalization: 5-7 days2-3 days Current Decision-Making Capacity: Alert and oriented x 4 Advance Care Planning: on file Kisha Hoang [facility] [phone] Current Coping/Education/Information Needs: pt and spouse state [...] Health/Prescription Coverage: Primary Insurance: MEDICARE Secondary Insurance: [employer]mobility [place] Prescription Coverage: See above Preferred Pharmacy: [id number] Other: N/A Primary Care Provider: Lovely Vicente MD [phone] Patient/Caregiver Goals of Treatment: Patient plans to [...] of care planning. Kaitlin Saha RN Pager: [phone] Plan of Care - Melba Jaramillo RN [...] Overview Goal: Plan of Care Review 08/08/17 3514 Coping/Psychosocial Plan Of Care Reviewed With patient [...] call cabello within reach, Hourly rounding by RN/JAVA SOFTWARE DEVELOPER. Bed alarm / Chair alarm. Patient-specific fall prevention interventions for sensory deficits provided, if applicable: [X] Yes CPG GOAL OUTCOME EVALUATION: Goal: Fall Prevention-Safe Patient Handling Outcome: Ongoing (Interventions Implemented as Appropriate) 08/06/17 1700 08/06/17199908/07/17 9944 Positioning Body Position -- up in chair [...] at bedside and MD TEAM Carrying pager [phone] contacted (via Radio page) and notified of [...] [facility] ER [address] [place], [place] [address] (Wo rk) 06/10/2022 Office Visit Dermatology Larua Scherer MD [facility] [address] [place], [place] [address] (Wo rk) documented as [...] section. TYPE AND SCREEN Routine 08/09/2017 1:10 ([facility]/CGP/SHANDA) AM EST BASIC METABOLIC PANEL Routine 08/09/2017 [...] Signature POC Glucose 160 65 - 199 [facility] mg/dL [facility] Comment: Supplemental ranges: <140 mg/dL before meals <180 mg/dL all other times of the day Specimen Anatomical Collection Method Collection Time Receive d Time (Source) Location / / Volume Laterality Blood specimen 08/16/2017 7:28 AM 018 7:28 (specimen) EST AM EST Yonathan Smith MD POINT OF CARE TEST ORDERABLE S Performing Organization Address City/State/ZIP Code [place] [facility] [address] (ABNORMAL) Differential, Automated (08/16/2017 5:08 AM EST) Patholo gist Method Time Signature Neutrophils % 73.9 % [facility] Neutr Abs (ANC) 5.37 1.70 - [facility] 6.10 [facility] x10(3)/[facility] LABORATORY Lymphocytes % 10.1 % [facility] Lymphocytes Abs 0.7 (L) 0.9 - 3.2 [facility] x10(3)/[facility] LABORATORY Monocytes % 10.1 % [facility] Monocyte Abs 0.7 0.3 - 0.9 [facility] x10(3)/[facility] LABORATORY Eosinophils % 5.1 % [facility] Eosinophils Abs 0.4 0.0 - 0.4 [facility] x10(3)/[facility] LABORATORY Basophils % 0.4 % [facility] Basophils Abs 0.0 0.0 - 0.1 [facility] x10(3)/[facility] LABORATORY Immature Gran % 0.40 [...] Melisa Gran Abs 0.03 0.00 - 0.04 x10(3)/[facility] Specimen Anatomical Collection Method Collection Time Receive d Time (Source) Location / / Volume Laterality Blood specimen 08/16/2017 5:08 AM 018 5:20 (specimen) EST AM EST Resulting Agency Comment Spec In Lab Yonathan Smith MD HEMATOLOGY ORDERABLES Performing Organization Address City/State/[place] [address] (ABNORMAL) Hemogram (08/16/2017 5:08 AM EST) Analysis Performed At Patho logist Time Signature WBC 7.3 4.0 - 9.5 [facility] x10(3)/[facility] LABORATORY RBC 3.36 (L) 4.58 - [facility] 5.54 [facility] x10(6)/[facility] LABORATORY Hemoglobin 9.7 (L) 13.7 - [facility] 16.5 gm/dL [facility] Hematocrit 30.3 (L) 40.5 - [facility] 48.5 % [facility] MCV 90.2 82.9 - [place]IVASCK 93.1 [facility] LABORATORY MCH 28.9 27.5 - [place] 32.1 pg [facility] MCHC 32.0 32.0 - [place] DAVIS 35.7 gm/dL [facility] Platelets 282 145 - 357 [facility] x10(3)/[facility] LABORATORY RDWSD 53.9 (H) 36.0 - [place] 45.0 [facility] LABORATORY RDWCV 16.5 (H) 11.4 - [place] RYAN 13.8 % [facility] MPV 9.0 7.6 - 12.9 [facility] LABORATORY nRBC % Auto 0.0 % [facility] nRBC Abs Auto 0.000 0.000 - [place] ZHAORYAN 0.000 [facility] x10(3)/[facility] LABORATORY Specimen Anatomical Collection Method Collection Time Receive d Time (Source) Location / / Volume Laterality Blood specimen 08/16/2017 5:08 AM 018 5:20 (specimen) EST AM EST Resulting Agency Comment Spec In Lab Yonathan Smith MD HEMATOLOGY ORDERABLES Performing Organization Address City/State/[place] [address] (ABNORMAL) Basic Metabolic Panel (non-fasting) (08/16/2017 5:08 AM EST) P athologist Signature Glucose Lvl 141 65 - 199 [facility] mg/dL [facility] Comment: Diabetes: >=200 mg/dL [...] or in patients with acute kidney failure. [email or web address] [email or web address]/[email or web address] Specimen Anatomical Collection Method Collection Time Receive d Time (Source) Location / / Volume Laterality Blood specimen 08/16/2017 5:08 AM 018 5:20 (specimen) EST AM EST Resulting Agency Comment Spec In Lab Yonathan Smith MD CHEMISTRY ORDERABLES Performing Organization Address City/State/[facility] [place] [address] (ABNORMAL) Prothrombin Time (08/16/2017 [...] Address City/State/ZIP Code Phon e Number [address] POCT Glucose (08/16/2017 4:09 AM EST) athologist Signature POC Glucose 147 65 - 199 [place] mg/dL [facility] Comment: Supplemental ranges: <140 [...] [facility]/ZIP Code Phon e Number [address] POCT Glucose (08/15/2017 11:56 PM EST) athologist Signature POC Glucose 176 65 - 199 [place] mg/dL [facility] Comment: Supplemental ranges: <140 mg/dL before meals <180 mg/dL all other times of the day Specimen Anatomical Collection Method Collection Time Receive d Time (Source) Location / / Volume Laterality Blood specimen 08/15/2017 11:56 8 (specimen) PM EST 11:56 PM EST Yonathan Smith MD POINT OF CARE TEST ORDERABLE S Performing Organization Address City/State/ZIP Code Phon e Number [place], [place] [id number] [place] [address] POCT Glucose (08/15/2017 8:05 PM EST) athologist Signature POC Glucose 136 65 - 199 [place] mg/dL [facility] Comment: Supplemental ranges: <140 mg/dL before meals <180 mg/dL all other times of the day Specimen Anatomical Collection Method Collection Time Receive d Time (Source) Location / / Volume Laterality Blood specimen 08/15/2017 8:05 PM 018 8:05 (specimen) EST PM EST Yonathan Smith MD POINT OF CARE TEST ORDERABLE S Performing Organization Address City/State/ZIP [place] [address] (ABNORMAL) POCT Glucose (08/15/2017 4:50 PM EST) athologist Signature POC Glucose 232 (H) 65 - 199 [place] mg/dL [facility] Comment: Supplemental ranges: <140 mg/dL before meals <180 mg/dL all other times of the day Specimen Anatomical Collection Method Collection Time Receive d Time (Source) Location / / Volume Laterality Blood specimen 08/15/2017 4:50 PM 018 4:50 (specimen) EST PM EST Yonathan Smith MD POINT OF CARE TEST ORDERABLE S Performing Organization Address City/State/ZIP Code Phon e Number [address] POCT Glucose (08/15/2017 12:04 PM EST) athologist Signature POC Glucose 135 65 - 199 [facility] Comment: Supplemental ranges: <140 mg/dL before meals <180 mg/dL all other times of the day Specimen Anatomical Collection Method Collection Time Receive d Time (Source) Location / / Volume Laterality Blood specimen 08/15/2017 12:04 8 (specimen) PM EST 12:04 PM EST Yonathan Smith MD POINT OF CARE TEST ORDERABLE S Performing Organization Address City/State/[place] [address] POCT Glucose (08/15/2017 7:36 AM EST) athologist Signature POC Glucose 124 65 - 199 [place] mg/dL [facility] Comment: Supplemental ranges: <140 mg/dL before meals <180 mg/dL all other times of the day Specimen Anatomical Collection Method Collection Time Receive d Time (Source) Location / / Volume Laterality Blood specimen 08/15/2017 7:36 AM 018 7:36 (specimen) EST AM EST Yonathan Smith MD POINT OF CARE TEST ORDERABLE S Performing Organization Address City/State/[place] [address] (ABNORMAL) Differential, Automated (08/15/2017 6:22 AM EST) Patholo gist Method Time Signature Neutrophils % 76.1 % [facility] Neutr Abs (ANC) 6.62 (H) 1.70 - [facility] 6.10 [facility] x10(3)/[facility] LABORATORY Lymphocytes % 9.3 % [facility] Lymphocytes Abs 0.8 (L) 0.9 - 3.2 [facility] x10(3)/[facility] LABORATORY Monocytes % 9.4 % [facility] Monocyte Abs 0.8 0.3 - 0.9 [facility] x10(3)/[facility] LABORATORY Eosinophils % 4.0 % [facility] Eosinophils Abs 0.4 0.0 - 0.4 [facility] x10(3)/[facility] LABORATORY Basophils % 0.6 % [facility] Basophils Abs 0.0 0.0 - 0.1 [facility] x10(3)/[facility] LABORATORY Immature Gran % 0.60 % [...] Address City/State/ZIP Code Phon e Number [address] (ABNORMAL) Hemogram (08/15/2017 6:22 AM EST) Analysis Performed At Patho logist Time Signature WBC 8.7 4.0 - 9.5 [facility] x10(3)/[facility] LABORATORY RBC 3.21 (L) 4.58 - [place] 5.54 [facility] x10(6)/[facility] LABORATORY Hemoglobin 9.1 (L) 13.7 - [facility] 16.5 gm/dL [facility] Hematocrit 29.0 (L) 40.5 - [place] 48.5 % [facility] MCV 90.3 82.9 - [facility]1 [facility] LABORATORY MCH 28.3 27.5 - [facility] 32.1 pg [facility] MCHC 31.4 (L) 32.0 - [place] 35.7 gm/dL [facility] Platelets 254 145 - 357 [facility] x10(3)/[facility] LABORATORY RDWSD 53.9 (H) 36.0 - [facility] 45.0 [facility] LABORATORY RDWCV 16.3 (H) 11.4 - [facility] 13.8 % [facility] MPV 8.8 7.6 - 12.9 [facility] LABORATORY nRBC % Auto 0.0 % [facility] nRBC Abs Auto 0.000 0.000 - [facility] 0.000 [facility] x10(3)/[facility] LABORATORY Specimen Anatomical Collection Method Collection Time Receive d Time (Source) Location / / Volume Laterality Blood specimen 08/15/2017 6:22 AM 018 6:33 (specimen) EST AM EST Resulting Agency Comment Spec In Lab Yonathan Smith MD HEMATOLOGY ORDERABLES Performing Organization Address City/State/[place] [address] (ABNORMAL) Basic Metabolic Panel (non-fasting) (08/15/2017 6:22 AM EST) P athologist Signature Glucose Lvl 118 65 - 199 [facility] mg/dL [facility] Comment: Diabetes: >=200 mg/dL [...] or in patients with acute kidney failure. http://[email or web address] [email or web address]://[email or web address]/[email or web address] Specimen Anatomical Collection Method Collection Time Receive d Time (Source) Location / / Volume Laterality Blood specimen 08/15/2017 6:22 AM 018 6:33 (specimen) EST AM EST Resulting Agency Comment Spec In Lab Yonathan Smith MD CHEMISTRY ORDERABLES Performing Organization Address City/State/[place] [address] (ABNORMAL) Prothrombin Time (08/15/2017 [...] Address City/State/ZIP Code Phon e Number [address] POCT Glucose (08/15/2017 4:33 AM EST) athologist Signature POC Glucose 164 65 - 199 [place] mg/dL [facility] Comment: Supplemental ranges: <140 [...] [facility]/ZIP Code Phon e Number [address] POCT Glucose (08/15/2017 12:12 AM EST) athologist Signature POC Glucose 89 65 - 199 [place] mg/dL [facility] Comment: Supplemental ranges: <140 [...] [facility]/ZIP Code Phon e Number [address] (ABNORMAL) POCT Glucose (08/14/2017 8:07 PM EST) athologist Signature POC Glucose 204 (H) 65 - 199 [place] mg/dL [facility] Comment: Supplemental ranges: <140 mg/dL before meals <180 mg/dL all other times of the day Specimen Anatomical Collection Method Collection Time Receive d Time (Source) Location / / Volume Laterality Blood specimen 08/14/2017 8:07 PM 018 8:07 (specimen) EST PM EST Yonathan Smith MD POINT OF CARE TEST ORDERABLE S Performing Organization Address City/State/ZIP Code Phon e Number [address] POCT Glucose (08/14/2017 5:11 PM EST) athologist Signature POC Glucose 174 65 - 199 [place] mg/dL [facility] Comment: Supplemental ranges: <140 mg/dL before meals <180 mg/dL all other times of the day Specimen Anatomical Collection Method Collection Time Receive d Time (Source) Location / / Volume Laterality Blood specimen 08/14/2017 5:11 PM 018 5:11 (specimen) EST PM EST Yonathan Smith MD POINT OF CARE TEST ORDERABLE S Performing Organization Address City/State/ZIP Code Phon e Number [address] POCT Glucose (08/14/2017 12:10 PM EST) athologist Signature POC Glucose 141 65 - 199 [place] mg/dL [facility] Comment: Supplemental ranges: <140 mg/dL before meals <180 mg/dL all other times of the day Specimen Anatomical Collection Method Collection Time Receive d Time (Source) Location / / Volume Laterality Blood specimen 08/14/2017 12:10 8 (specimen) PM EST 12:10 PM EST Yonathan Smith MD POINT OF CARE TEST ORDERABLE S Performing Organization Address City/State/ZIP Code Phon e Number [address] POCT Glucose (08/14/2017 8:07 AM EST) athologist Signature POC Glucose 158 65 - 199 [place] mg/dL [facility] Comment: Supplemental ranges: <140 mg/dL before meals <180 mg/dL all other times of the day Specimen Anatomical Collection Method Collection Time Receive d Time (Source) Location / / Volume Laterality Blood specimen 08/14/2017 8:07 AM 018 8:07 (specimen) EST AM EST Yonathan Smith MD POINT OF CARE TEST ORDERABLE S Performing Organization Address City/State/[place] [address] (ABNORMAL) Differential, Automated (08/14/2017 4:52 AM EST) [facility] Method Time Signature Neutrophils % 78.6 % [facility] Neutr Abs (ANC) 7.70 (H) 1.70 - [facility] 6.10 [facility] x10(3)/[facility] L LABORATORY Lymphocytes % 7.8 % [facility] Lymphocytes Abs 0.8 (L) 0.9 - 3.2 [facility] x10(3)/[facility] LABORATORY Monocytes % 8.8 % [facility] Monocyte Abs 0.9 0.3 - 0.9 [facility] x10(3)/[facility] LABORATORY Eosinophils % 4.0 % [facility] Eosinophils Abs 0.4 0.0 - 0.4 [facility] x10(3)/[facility] LABORATORY Basophils % 0.5 % [facility] Basophils Abs 0.0 0.0 - 0.1 [facility] x10(3)/[facility] LABORATORY Immature Gran % 0.30 % [facility] [...] Address City/State/ZIP Code Phon e Number [address] (ABNORMAL) Hemogram (08/14/2017 4:52 AM EST) Analysis Performed At Patho logist Time Signature WBC 9.8 (H) 4.0 - 9.5 [facility] x10(3[facility] LABORATORY RBC 3.32 (L) 4.58 - [place] 5.54 [facility] x10(6)/[facility] LABORATORY Hemoglobin 9.5 (L) 13.7 - [facility] 16.5 gm/dL [facility] Hematocrit 30.3 (L) 40.5 - [facility] 48.5 % [facility] MCV 91.3 82.9 - [facility] 93[facility]1 [facility] LABORATORY MCH 28.6 27.5 - [facility] 32.1 pg [facility] MCHC 31.4 (L) 32.0 - [facility] 35.7 gm/dL [facility] Platelets 263 145 - 357 [facility] x10(3)/[facility] LABORATORY RDWSD 54.8 (H) 36.0 - [facility] 45.0 [facility] LABORATORY RDWCV 16.5 (H) 11.4 - [facility] 13.8 % [facility] MPV 9.1 7.6 - 12.9 [facility] nRBC % Auto 0.0 % [facility] nRBC Abs Auto 0.000 0.000 - [place] 0.000 [facility] x10(3)/[facility] LABORATORY Specimen Anatomical Collection Method Collection Time Receive d Time (Source) Location / / Volume Laterality Blood specimen 08/14/2017 4:52 AM 018 5:08 (specimen) EST AM EST Resulting Agency Comment Spec In Lab Yonathan Smith MD HEMATOLOGY ORDERABLES Performing Organization Address City/State/[place] [address] (ABNORMAL) Prothrombin Time (08/14/2017 [...] Organization Address City/State/[place] [address] (ABNORMAL) Basic Metabolic Panel (non-fasting) (08/14/2017 4:52 AM EST) athologist Signature Glucose Lvl 135 65 - 199 [facility] mg/dL [facility] Comment: Diabetes: >=200 mg/dL [...] or in patients with acute kidney failure. http://[email or web address] http://[email or web address]/DHMCnkf Specimen Anatomical Collection Method Collection Time Receive d Time (Source) Location / / Volume Laterality Blood specimen 08/14/2017 4:52 AM 018 5:08 (specimen) EST AM EST Resulting Agency Comment Spec In Lab Yonathan Smith MD CHEMISTRY ORDERABLES Performing Organization Address City/[facility]/ZIP [facility] Phon e Number [address] POCT Glucose (08/14/2017 3:56 AM EST) P athologist Signature POC Glucose 135 65 - 199 [facility] mg/dL [facility] Comment: Supplemental ranges: <140 [...] [facility]/ZIP Code Phon e Number [address] POCT Glucose (08/13/2017 11:13 PM EST) athologist Signature POC Glucose 118 65 - 199 [facility] mg/dL [facility] Comment: Supplemental ranges: <140 mg/dL before meals <180 mg/dL all other times of the day Specimen Anatomical Collection Method Collection Time Receive d Time (Source) Location / / Volume Laterality Blood specimen 08/13/2017 11:13 8 (specimen) PM EST 11:13 PM EST Yonathan Smith MD POINT OF CARE TEST ORDERABLE S Performing Organization Address City/State/[place] [address] (ABNORMAL) POCT Glucose (08/13/2017 8:08 PM EST) athologist Signature POC Glucose 204 (H) 65 - 199 [place] mg/dL [facility] Comment: Supplemental ranges: <140 [...] [facility]/[place] [address] POCT Glucose (08/13/2017 4:02 PM EST) athologist Signature POC Glucose 145 65 - 199 [place] mg/dL [facility] Comment: Supplemental ranges: <140 mg/dL before meals <180 mg/dL all other times of the day Specimen Anatomical Collection Method Collection Time Receive d Time (Source) Location / / Volume Laterality Blood specimen 08/13/2017 4:02 PM 018 4:02 (specimen) EST PM EST Yonathan Smith MD POINT OF CARE TEST ORDERABLE S Performing Organization Address City/State/[place] [address] POCT Glucose (08/13/2017 11:31 AM EST) athologist Signature POC Glucose 179 65 - 199 [place] mg/dL [facility] Comment: Supplemental ranges: <140 mg/dL before meals <180 mg/dL all other times of the day Specimen Anatomical Collection Method Collection Time Receive d Time (Source) Location / / Volume Laterality Blood specimen 08/13/2017 11:31 8 (specimen) AM EST 11:31 AM EST Yonathan Smith MD POINT OF CARE TEST ORDERABLE S Performing Organization Address City/State/[place] [address] (ABNORMAL) POCT Glucose (08/13/2017 10:16 AM EST) P athologist Signature POC Glucose 211 (H) 65 - 199 [place] mg/dL [facility] Comment: Supplemental ranges: <140 mg/dL before meals <180 mg/dL all other times of the day Specimen Anatomical Collection Method Collection Time Receive d Time (Source) Location / / Volume Laterality Blood specimen 08/13/2017 10:16 8 (specimen) AM EST 10:16 AM EST Yonathan Smith MD POINT OF CARE TEST ORDERABLE S Performing Organization Address City/State/[place] [address] JULIAN, legs, multiple levels (08/13/2017 7:42 AM EST) Component Value Ref Test Analysis Performed At Patholo gist Range Method Time Signature VB Text Department: Vascular Surgery Lab VASCUBASE Report Patient: [id number] (GREGORY HOANG) CPT: 49774 ICD10: I99.8 Referring Physician: YONATHAN SMITH ?? Indications: s/p R 1,2,3 toe amps with red left foot, need n ew baseline Diabetes mellitus: yes ICD10 Diagnosis Code: I99.8 Findings: Right ?Pressure (mm Hg) ?? JULIAN ??Waveform ?TBI ?? Brachial Artery ?138 ? Dorsalis Pedis (Ankle) Arter y ?132 ? 0.94 ??[place]- Biphasic ? Posterior Tibial (Ankle) Art anila ??154 ? 1.10 ??[place]-Biphasic ? Fourth Toe ? 67 ? 0.48 [...] Signature POC Glucose 156 65 - 199 [facility] mg/dL [facility] Comment: Supplemental ranges: <140 mg/dL before meals <180 mg/dL all other times of the day Specimen Anatomical Collection Method Collection Time Receive d Time (Source) Location / / Volume Laterality Blood specimen 08/13/2017 7:33 AM 018 7:33 (specimen) EST AM EST Yonathan Smith MD POINT OF CARE TEST ORDERABLE S Performing Organization Address City/State/[place] [address] (ABNORMAL) Differential, Automated (08/13/2017 5:33 AM EST) Patholo gist Method Time Signature Neutrophils % 77.8 % [facility] Neutr Abs (ANC) 7.83 (H) 1.70 - [facility] 6.10 [facility] x10(3)/[facility] L LABORATORY Lymphocytes % 8.4 % [facility] Lymphocytes Abs 0.8 (L) 0.9 - 3.2 [facility] x10(3)/[facility] LABORATORY Monocytes % 8.3 % [facility] Monocyte Abs 0.8 0.3 - 0.9 [facility] x10(3)/[facility] LABORATORY Eosinophils % 4.6 % [facility] Eosinophils Abs 0.5 (H) 0.0 - 0.4 [facility] x10(3)/[facility] LABORATORY Basophils % 0.5 % [facility] Basophils Abs 0.0 0.0 - 0.1 [facility] x10(3)/[facility] LABORATORY Immature Gran % 0.40 [...] Melisa Gran Abs 0.04 0.00 - 0.04 x10(3)/[facility] MAR [facility] LABORATORY Specimen Anatomical Collection Method Collection Time Receive d Time (Source) Location / / Volume Laterality Blood specimen 08/13/2017 5:33 AM 018 6:04 (specimen) EST AM EST Resulting Agency Comment Spec In Lab Yonathan Smith MD HEMATOLOGY ORDERABLES Performing Organization Address City/State/[place] [address] (ABNORMAL) Hemogram (08/13/2017 5:33 AM EST) Analysis Performed At Patho logist Time Signature WBC 10.1 (H) 4.0 - 9.5 [facility] x10(3)/[facility] LABORATORY RBC 3.21 (L) 4.58 - [facility] 5.54 [facility] x10(6)/[facility] LABORATORY Hemoglobin 9.2 (L) 13.7 - [facility] 16.5 gm/dL [facility] Hematocrit 29.6 (L) 40.5 - [facility] 48.5 % [facility] MCV 92.2 82.9 - [facility] LABORATORY MCH 28.7 27.5 - [facility] 32.1 pg [facility] MCHC 31.1 (L) 32.0 - [place] 35.7 gm/dL [facility] Platelets 263 145 - 357 [facility] x10(3)/[facility] LABORATORY RDWSD 54.8 (H) 36.0 - [place] 45.0 [facility] LABORATORY RDWCV 16.4 (H) 11.4 - [facility] RYAN 13.8 % [facility]ORATORY MPV 9.2 7.6 - 12.9 [facility] LABORATORY nRBC % Auto 0.0 % [facility] nRBC Abs Auto 0.000 0.000 - [place] 0.000 [facility] x10(3)/[facility] LABORATORY Specimen Anatomical Collection Method Collection Time Receive d Time (Source) Location / / Volume Laterality Blood specimen 08/13/2017 5:33 AM 018 6:04 (specimen) EST AM EST Resulting Agency Comment Spec In Lab Yonathan Smith MD HEMATOLOGY ORDERABLES Performing Organization Address City/State/ZIP Code Phon e Number [place] [id number] (ABNORMAL) Prothrombin Time (08/13/2017 [...] Smith MD HEMATOLOGY ORDERABLES Performing Organization Address City/[facility]/[place] [address] (ABNORMAL) Basic Metabolic Panel (non-fasting) (08/13/2017 5:33 AM EST) P athologist Signature Glucose Lvl 126 65 - 199 [facility] mg/dL [facility] Comment: Diabetes: >=200 mg/dL [...] or in patients with acute kidney failure. [email or web address]/DHnkdep [email or web address]/DHMCnkf Specimen Anatomical Collection Method Collection Time Receive d Time (Source) Location / / Volume Laterality Blood specimen 08/13/2017 5:33 AM 018 6:04 (specimen) EST AM EST Resulting Agency Comment Spec In Lab Yonathan Smith MD CHEMISTRY ORDERABLES Performing Organization Address City/State/[place] [address] POCT Glucose (08/13/2017 4:29 AM EST) athologist Signature POC Glucose 111 65 - 199 [facility] mg/dL [facility] Comment: Supplemental ranges: <140 [...] [facility]/ZIP Code Phon e Number [address] POCT Glucose (08/12/2017 11:28 PM EST) athologist Signature POC Glucose 164 65 - 199 [place] mg/dL [facility] Comment: Supplemental ranges: <140 mg/dL before meals <180 mg/dL all other times of the day Specimen Anatomical Collection Method Collection Time Receive d Time (Source) Location / / Volume Laterality Blood specimen 08/12/2017 11:28 8 (specimen) PM EST 11:28 PM EST Yonathan Smith MD POINT OF CARE TEST ORDERABLE S Performing Organization Address City/State/[place] [address] (ABNORMAL) POCT Glucose (08/12/2017 7:40 PM EST) athologist Signature POC Glucose 209 (H) 65 - 199 [place] mg/dL [facility] Comment: Supplemental ranges: <140 mg/dL before meals <180 mg/dL all other times of the day Specimen Anatomical Collection Method Collection Time Receive d Time (Source) Location / / Volume Laterality Blood specimen 08/12/2017 7:40 PM 018 7:40 (specimen) EST PM EST Yonathan Smith MD POINT OF CARE TEST ORDERABLE S Performing Organization Address City/State/[place] [address] POCT Glucose (08/12/2017 4:24 PM EST) athologist Signature POC Glucose 161 65 - 199 [place] mg/dL [facility] Comment: Supplemental ranges: <140 mg/dL before meals <180 mg/dL all other times of the day Specimen Anatomical Collection Method Collection Time Receive d Time (Source) Location / / Volume Laterality Blood specimen 08/12/2017 4:24 PM 018 4:24 (specimen) EST PM EST Yonathan Smith MD POINT OF CARE TEST ORDERABLE S Performing Organization Address City/State/ZIP Code Phon e Number [address] POCT Glucose (08/12/2017 12:00 PM EST) athologist Signature POC Glucose 167 65 - 199 [facility] R[place]AN mg/dL [facility] LABORATORY Comment: Supplemental ranges: <140 mg/dL before meals <180 mg/dL all other times of the day Specimen Anatomical Collection Method Collection Time Receive d Time (Source) Location / / Volume Laterality Blood specimen 08/12/2017 12:00 8 (specimen) PM EST 12:00 PM EST Yonathan Smith MD POINT OF CARE TEST ORDERABLE S Performing Organization Address City/State/[place] [address] POCT Glucose (08/12/2017 7:25 AM EST) athologist Signature POC Glucose 152 65 - 199 [place] mg/dL [facility] LABORATORY Comment: Supplemental ranges: <140 mg/dL before meals <180 mg/dL all other times of the day Specimen Anatomical Collection Method Collection Time Receive d Time (Source) Location / / Volume Laterality Blood specimen 08/12/2017 7:25 AM 018 7:25 (specimen) EST AM EST Yonathan Smith MD POINT OF CARE TEST ORDERABLE S Performing Organization Address City/State/[place] [address] (ABNORMAL) Differential, Automated (08/12/2017 6:29 AM EST) Patholo gist Method Time Signature Neutrophils % 78.7 % [facility] LABORATORY Neutr Abs (ANC) 7.94 (H) 1.70 - [facility] 6.10 [facility] x10(3)/[facility] LABORATORY Lymphocytes % 8.8 % [facility] LABORATORY Lymphocytes Abs 0.9 0.9 - 3.2 [facility] x10(3)/[facility] LABORATORY Monocytes % 7.8 % [facility] LABORATORY Monocyte Abs 0.8 0.3 - 0.9 [facility] x10(3)/[facility] LABORATORY Eosinophils % 3.9 % [facility] LABORATORY Eosinophils Abs 0.4 0.0 - 0.4 [facility] x10(3)/[facility] LABORATORY Basophils % 0.3 % [facility] LABORATORY Basophils Abs 0.0 0.0 - 0.1 [facility] x10(3)/[facility] LABORATORY Immature Gran % 0.50 % [facility] [...] Organization Address City/State/[place] [address] (ABNORMAL) Hemogram (08/12/2017 6:29 AM EST) Analysis Performed At Patho logist Time Signature WBC 10.1 (H) 4.0 - 9.5 [facility] x10(3)/[facility] LABORATORY RBC 3.02 (L) 4.58 - [facility] [place] 5.54 [facility] x10(6)/[facility] LABORATORY Hemoglobin 8.7 (L) 13.7 - [facility] gm/dL [facility] LABORATORY Hematocrit 28.1 (L) 40.5 - [facility] 48.5 % [facility] LABORATORY MCV 93.0 82.9 - [facility] 93.1 [facility] LABORATORY MCH 28.8 27.5 - [facility] 32.1 pg [facility] LABORATORY MCHC 31.0 (L) 32.0 - [facility] 35.7 gm/dL [facility] LABORATORY Platelets 223 145 - 357 [facility] x10(3)/[facility] LABORATORY RDWSD 56.1 (H) 36.0 - [facility] 45.0 [facility] LABORATORY RDWCV 16.4 (H) 11.4 - [facility] 13.8 % [facility] LABORATORY MPV 9.0 7.6 - 12.9 [facility] LABORATORY nRBC % Auto 0.0 % [facility] LABORATORY nRBC Abs Auto 0.000 0.000 - [facility] 0.000 [facility] x10(3)/[facility] LABORATORY Specimen Anatomical Collection Method Collection Time Receive d Time (Source) Location / / Volume Laterality Blood specimen 08/12/2017 6:29 AM 018 6:38 (specimen) EST AM EST Resulting Agency Comment Spec In Lab Yonathan Smith MD HEMATOLOGY ORDERABLES Performing Organization Address City/State/[place] [address] (ABNORMAL) Prothrombin Time (08/12/2017 [...] Organization Address City/State/[place] [address] (ABNORMAL) Basic Metabolic Panel (non-fasting) (08/12/2017 6:29 AM EST) P athologist Signature Glucose Lvl 151 65 - 199 [facility] mg/dL [facility] LABORATORY Comment: Diabetes: >=200 mg/dL [...] or in patients with acute kidney failure. [email or web address]/DHnkdep [email or web address]://[email or web address]/DHMCnkf Specimen Anatomical Collection Method Collection Time Receive d Time (Source) Location / / Volume Laterality Blood specimen 08/12/2017 6:29 AM 018 6:38 (specimen) EST AM EST Resulting Agency Comment Spec In Lab Yonathan Smith MD CHEMISTRY ORDERABLES Performing Organization Address City/State/ZIP Code Phon e Number [address] POCT Glucose (08/12/2017 4:08 AM EST) athologist Signature POC Glucose 181 65 - 199 [facility] LABOR[facility]ORY Comment: Supplemental ranges: <140 [...] [facility]/[place] [address] (ABNORMAL) POCT Glucose (08/12/2017 12:17 AM EST) athologist Signature POC Glucose 221 (H) 65 - 199 [place] mg/dL [facility] LABORATORY Comment: Supplemental ranges: <140 [...] [facility]/ZIP Code Phon e Number [address] (ABNORMAL) POCT Glucose (08/11/2017 8:52 PM EST) athologist Signature POC Glucose 221 (H) 65 - 199 [place] mg/dL [facility] LABORATORY Comment: Supplemental ranges: <140 mg/dL before meals <180 mg/dL all other times of the day Specimen Anatomical Collection Method Collection Time Receive d Time (Source) Location / / Volume Laterality Blood specimen 08/11/2017 8:52 PM 018 8:52 (specimen) EST PM EST Yonathan Smith MD POINT OF CARE TEST ORDERABLE S Performing Organization Address City/State/[place] [address] POCT Glucose (08/11/2017 5:59 PM EST) athologist Signature POC Glucose 169 65 - 199 [place] mg/dL [facility] LABORATORY Comment: Supplemental ranges: <140 mg/dL before meals <180 mg/dL all other times of the day Specimen Anatomical Collection Method Collection Time Receive d Time (Source) Location / / Volume Laterality Blood specimen 08/11/2017 5:59 PM 018 5:59 (specimen) EST PM EST Yonathan Smith MD POINT OF CARE TEST ORDERABLE S Performing Organization Address City/State/[place] [address] (ABNORMAL) POCT Glucose (08/11/2017 4:08 PM EST) athologist Signature POC Glucose 240 (H) 65 - 199 [place] mg/dL [facility] LABORATORY Comment: Supplemental ranges: <140 mg/dL before meals <180 mg/dL all other times of the day Specimen Anatomical Collection Method Collection Time Receive d Time (Source) Location / / Volume Laterality Blood specimen 08/11/2017 4:08 PM 018 4:08 (specimen) EST PM EST Yonathan Smith MD POINT OF CARE TEST ORDERABLE S Performing Organization Address City/State/ZIP Code Phon e Number [address] POCT Glucose (08/11/2017 12:04 PM EST) athologist Signature POC Glucose 182 65 - 199 [place] mg/dL [facility] LABORATORY Comment: Supplemental ranges: <140 mg/dL before meals <180 mg/dL all other times of the day Specimen Anatomical Collection Method Collection Time Receive d Time (Source) Location / / Volume Laterality Blood specimen 08/11/2017 12:04 8 (specimen) PM EST 12:04 PM EST Yonathan Smith MD POINT OF CARE TEST ORDERABLE S Performing Organization Address City/State/ZIP Code Phon e Number [address] POCT Glucose (08/11/2017 7:31 AM EST) P athologist Signature POC Glucose 156 65 - 199 [facility] mg/dL [facility] LABORATORY Comment: Supplemental ranges: <140 mg/dL before meals <180 mg/dL all other times of the day Specimen Anatomical Collection Method Collection Time Receive d Time (Source) Location / / Volume Laterality Blood specimen 08/11/2017 7:31 AM 018 7:31 (specimen) EST AM EST Yonathan Smith MD POINT OF CARE TEST ORDERABLE S Performing Organization Address City/State/[place] [address] (ABNORMAL) Differential, Automated (08/11/2017 6:16 AM EST) Patholo gist Method Time Signature Neutrophils % 83.7 % [facility] LABORATORY Neutr Abs (ANC) 10.76 (H) 1.70 - [facility] 6.10 [facility] x10(3)/[facility] L LABORATORY Lymphocytes % 6.0 % [facility] LABORATORY Lymphocytes Abs 0.8 (L) 0.9 - 3.2 [facility] x10(3)/[facility] LABORATORY Monocytes % 7.5 % [facility] LABORATORY Monocyte Abs 1.0 (H) 0.3 - 0.9 [facility] x10(3)/[facility] LABORATORY Eosinophils % 2.0 % [facility] LABORATORY Eosinophils Abs 0.3 0.0 - 0.4 [facility] x10(3)/[facility] LABORATORY Basophils % 0.3 % [facility] LABORATORY Basophils Abs 0.0 0.0 - 0.1 [facility] x10(3)/[facility] LABORATORY Immature Gran % 0.50 % [facility] [...] Abs 0.06 (H) 0.00 - 0.04 x10(3)/[facility] LABORATORY Specimen Anatomical Collection Method Collection Time Receive d Time (Source) Location / / Volume Laterality Blood specimen 08/11/2017 6:16 AM 018 6:24 (specimen) EST AM EST Resulting Agency Comment Spec In Lab Yonathan Smith MD HEMATOLOGY ORDERABLES Performing Organization Address City/State/ZIP Code Phon e Number [place] [id number] HOS[address]ORY Drive (ABNORMAL) Hemogram (08/11/2017 6:16 AM EST) Analysis Performed At Patho logist Time Signature WBC 12.9 (H) 4.0 - 9.5 [facility] x10(3)/[facility] LABORATORY RBC 3.28 (L) 4.58 - [facility] 5.54 [facility] x10(6)/[facility] LABORATORY Hemoglobin 9.5 (L) 13.7 - [facility] 16.5 gm/dL [facility] LABORATORY Hematocrit 29.8 (L) 40.5 - [facility] 48.5 % [facility] LABORATORY MCV 90.9 82.9 - [facility] 93.1 [facility] LABORATORY MCH 29.0 27.5 - [facility] 32.1 pg [facility] LABORATORY MCHC 31.9 (L) 32.0 - [facility] 35.7 gm/dL [facility] LABORATORY Platelets 236 145 - 357 [facility] x10(3)/[facility] LABORATORY RDWSD 53.5 (H) 36.0 - [facility] 45.0 [facility] LABORATORY RDWCV 16.3 (H) 11.4 - [facility] 13.8 % [facility] LABORATORY MPV 8.8 7.6 - 12.9 [facility] fL [facility] LABORATORY nRBC % Auto 0.0 % [facility] LABORATORY nRBC Abs Auto 0.000 0.000 - [place] [facility] 0.000 [facility] x10(3)/[facility] LABORATORY Specimen Anatomical Collection Method Collection Time Receive d Time (Source) Location / / Volume Laterality Blood specimen 08/11/2017 6:16 AM 018 6:24 (specimen) EST AM EST Resulting Agency Comment Spec In Lab Yonathan Smith MD HEMATOLOGY ORDERABLES Performing Organization Address City/State/ZIP Code Phon e Number [address] (ABNORMAL) Prothrombin Time (08/11/2017 [...] Organization Address City/State/[place] [address] Basic Metabolic Panel (non-fasting) (08/11/2017 6:16 AM EST) P athologist Signature Glucose Lvl 139 65 - 199 [facility] mg/dL [facility] LABORATORY Comment: Diabetes: >=200 mg/dL [...] or in patients with acute kidney failure. [email or web address] [email or web address]://[email or web address]/DHMCnkf Specimen Anatomical Collection Method Collection Time Receive d Time (Source) Location / / Volume Laterality Blood specimen 08/11/2017 6:16 AM 018 6:24 (specimen) EST AM EST Resulting Agency Comment Spec In Lab Yonathan Smith MD CHEMISTRY ORDERABLES Performing Organization Address City/State/[place] [address] POCT Glucose (08/11/2017 4:07 AM EST) athologist Signature POC Glucose 162 65 - 199 [facility] mg/dL [facility] LABORATORY Comment: Supplemental ranges: <140 mg/dL before meals <180 mg/dL all other times of the day Specimen Anatomical Collection Method Collection Time Receive d Time (Source) Location / / Volume Laterality Blood specimen 08/11/2017 4:07 AM 018 4:07 (specimen) EST AM EST Yonathan Smith MD POINT OF CARE TEST ORDERABLE S Performing Organization Address City/State/ZIP Code Phon e Number [address] POCT Glucose (08/10/2017 11:59 PM EST) athologist Signature POC Glucose 166 65 - 199 [place] mg/dL [facility] LABORATORY Comment: Supplemental ranges: <140 [...] [facility]/ZIP Code Phon e Number [address] POCT Glucose (08/10/2017 8:12 PM EST) athologist Signature POC Glucose 156 65 - 199 [place] mg/dL [facility] LABORATORY Comment: Supplemental ranges: <140 mg/dL before meals <180 mg/dL all other times of the day Specimen Anatomical Collection Method Collection Time Receive d Time (Source) Location / / Volume Laterality Blood specimen 08/10/2017 8:12 PM 018 8:12 (specimen) EST PM EST Yonathan Smith MD POINT OF CARE TEST ORDERABLE S Performing Organization Address City/State/[place] [address] (ABNORMAL) POCT Glucose (08/10/2017 4:42 PM EST) athologist Signature POC Glucose 211 (H) 65 - 199 [place] mg/dL [facility] LABORATORY Comment: Supplemental ranges: <140 mg/dL before meals <180 mg/dL all other times of the day Specimen Anatomical Collection Method Collection Time Receive d Time (Source) Location / / Volume Laterality Blood specimen 08/10/2017 4:42 PM 018 4:42 (specimen) EST PM EST Yonathan Smith MD POINT OF CARE TEST ORDERABLE S Performing Organization Address City/State/[place] [address] (ABNORMAL) Differential, Automated (08/10/2017 2:30 PM EST) [facility] Method Time Signature Neutrophils % 87.6 % [facility] LABORATORY Neutr Abs (ANC) 9.90 (H) 1.70 - [facility] 6.10 [facility] x10(3)/[facility] L LABORATORY Lymphocytes % 4.3 % [facility] LABORATORY Lymphocytes Abs 0.5 (L) 0.9 - 3.2 [facility] x10(3)/[facility] LABORATORY Monocytes % 6.0 % [facility] LABORATORY Monocyte Abs 0.7 0.3 - 0.9 [facility] x10(3)/[facility] LABORATORY Eosinophils % 1.1 % [facility] LABORATORY Eosinophils Abs 0.1 0.0 - 0.4 [facility] x10(3)/[facility] LABORATORY Basophils % 0.4 % [facility] LABORATORY Basophils Abs 0.0 0.0 - 0.1 [facility] x10(3)/[facility] LABORATORY Immature Gran % 0.60 % [...] Abs 0.07 (H) 0.00 - 0.04 x10(3)/[facility] LABORATORY Specimen Anatomical Collection Method Collection Time Receive d Time (Source) Location / / Volume Laterality Blood specimen 08/10/2017 2:30 PM 018 2:48 (specimen) EST PM EST Resulting Agency Comment Spec In Lab Yonathan Smith MD HEMATOLOGY ORDERABLES Performing Organization Address City/State/ZIP Code [place] [address] (ABNORMAL) Hemogram (08/10/2017 2:30 PM EST) Analysis Performed At Patho logist Time Signature WBC 11.3 (H) 4.0 - 9.5 [facility](3[facility] LABORATORY RBC 3.13 (L) 4.58 - [place] 5.54 [facility] x10(6)/[facility] LABORATORY Hemoglobin 8.9 (L) 13.7 - [facility] 16.5 gm/dL [facility] LABORATORY Hematocrit 28.4 (L) 40.5 - [facility] 48.5 % [facility] LABORATORY MCV 90.7 82.9 - [facility] 93.1 [facility] LABORATORY MCH 28.4 27.5 - [facility] 32.1 pg [facility] LABORATORY MCHC 31.3 (L) 32.0 - [facility] 35.7 gm/dL [facility] LABORATORY Platelets 213 145 - 357 [facility] x10(3)/[facility] LABORATORY RDWSD 53.7 (H) 36.0 - [facility] 45.0 [facility] LABORATORY RDWCV 16.4 (H) 11.4 - [facility] 13.8 % [facility] LABORATORY MPV 8.9 7.6 - 12.9 [facility] LABORATORY nRBC % Auto 0.0 % [facility] LABORATORY nRBC Abs Auto 0.000 0.000 - [facility] 0.000 [facility] x10(3)/[facility] LABORATORY Specimen Anatomical Collection Method Collection Time Receive d Time (Source) Location / / Volume Laterality Blood specimen 08/10/2017 2:30 PM 018 2:48 (specimen) EST PM EST Resulting Agency Comment Spec In Lab Yonathan Smith MD HEMATOLOGY ORDERABLES Performing Organization Address City/State/[place] [address] (ABNORMAL) POCT Glucose (08/10/2017 1:50 PM EST) P athologist Signature POC Glucose 243 (H) 65 - 199 [facility] mg/dL [facility] LABORATORY Comment: Supplemental ranges: <140 mg/dL before meals <180 mg/dL all other times of the day Specimen Anatomical Collection Method Collection Time Receive d Time (Source) Location / / Volume Laterality Blood specimen 08/10/2017 1:50 PM 018 1:50 (specimen) EST PM EST Yonathan Smith MD POINT OF CARE TEST ORDERABLE S Performing Organization Address City/State/[place] [address] POCT Glucose (08/10/2017 11:21 AM EST) P athologist Signature POC Glucose 156 65 - 199 [facility] mg/dL [facility] LABORATORY Comment: Supplemental ranges: <140 mg/dL before meals <180 mg/dL all other times of the day Specimen Anatomical Collection Method Collection Time Receive d Time (Source) Location / / Volume Laterality Blood specimen 08/10/2017 11:21 8 (specimen) AM EST 11:21 AM EST Yonathan Smith MD POINT OF CARE TEST ORDERABLE S Performing Organization Address City/State/[place] [address] (ABNORMAL) Differential, Automated (08/10/2017 10:28 AM EST) Patholo gist Method Time Signature Neutrophils % 85.3 % [facility] LABORATORY Neutr Abs (ANC) 9.43 (H) 1.70 - [facility] 6.10 [facility] x10(3)/[facility] L LABORATORY Lymphocytes % 5.5 % [facility] LABORATORY Lymphocytes Abs 0.6 (L) 0.9 - 3.2 [facility] x10(3)/[facility] LABORATORY Monocytes % 5.9 % [facility] LABORATORY Monocyte Abs 0.6 0.3 - 0.9 [facility] x10(3)/[facility] LABORATORY Eosinophils % 2.1 % [facility] LABORATORY Eosinophils Abs 0.2 0.0 - 0.4 [facility] x10(3)/[facility] LABORATORY Basophils % 0.4 % [facility] LABORATORY Basophils Abs 0.0 0.0 - 0.1 [facility] x10(3)/[facility] LABORATORY Immature Gran % 0.80 % [facility] [...] Organization Address City/State/[place] [address] (ABNORMAL) Hemogram (08/10/2017 10:28 AM EST) Analysis Performed At Patho logist Time Signature WBC 11.0 (H) 4.0 - 9.5 [facility] x10(3)/[facility] LABORATORY RBC 3.02 (L) 4.58 - [facility] 5.54 [facility] x10(6)/[facility] LABORATORY Hemoglobin 8.8 (L) 13.7 - [facility] 16.5 gm/dL [facility] LABORATORY Hematocrit 28.1 (L) 40.5 - [facility] 48.5 % [facility] LABORATORY MCV 93.0 82.9 - [facility] 93.1 [facility] LABORATORY MCH 29.1 27.5 - [facility] 32.1 pg [facility] LABORATORY MCHC 31.3 (L) 32.0 - [facility] 35.7 gm/dL [facility] LABORATORY Platelets 207 145 - 357 [facility] x10(3)/[facility] LABORATORY RDWSD 55.3 (H) 36.0 - [facility] RYAN 45.0 [facility] LABORATORY RDWCV 16.4 (H) 11.4 - [facility] 13.8 % [facility] LABORATORY MPV 9.0 7.6 - 12.9 [facility] LABORATORY nRBC % Auto 0.0 % [facility] LABORATORY nRBC Abs Auto 0.000 0.000 - [place] 0.000 [facility] x10(3)/[facility] LABORATORY Specimen Anatomical Collection Method Collection Time Receive d Time (Source) Location / / Volume Laterality Blood specimen 08/10/2017 10:28 8 (specimen) AM EST 10:35 AM EST Resulting Agency Comment Spec In Lab Yonathan Smith MD HEMATOLOGY ORDERABLES Performing Organization Address City/State/ZIP Code Phon e Number [place] [phone] HOSPITAL LAB[address]ORY Drive VS Angiogram/intervention (vascular) (08/10/2017 [...] 2.5x80 5. Completion RLE angiogram 6. L FIELD ENGINEER angiogram 7. 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 L FIELD ENGINEER access in the distal L FIELD ENGINEER. - Closure device: Mynx Technical Procedure: ?The [...] for a 45cm 5F Destination. V18 and Maud a nd QuickCross catheters were used to [...] bifurcation. Access appeared in the distal R FIELD ENGINEER. Closure and sheath removal was performed with [...] 2.5x80 5. Completion RLE angiogram 6. L FIELD ENGINEER angiogram 7. 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 L FIELD ENGINEER access in the distal L FIELD ENGINEER. - Closure device: Mynx Technical Procedure: The [...] for a 45cm 5F Destination. V18 and Maud a nd QuickCross catheters were used to [...] bifurcation. Access appeared in the distal R FIELD ENGINEER. Closure and sheath removal was performed with [...] (ABNORMAL) Differential, Automated (08/10/2017 5:50 AM EST) [facility] Method Time Signature Neutrophils % 80.1 % [facility] LABORATORY Neutr Abs (ANC) 9.01 (H) 1.70 - [facility] 6.10 [facility] x10(3)/[facility] LABORATORY Lymphocytes % 8.8 % [facility] LABORATORY Lymphocytes Abs 1.0 0.9 - 3.2 [facility] x10(3)/[facility] LABORATORY Monocytes % 8.3 % [facility] LABORATORY Monocyte Abs 0.9 0.3 - 0.9 [facility] x10(3)/[facility] LABORATORY Eosinophils % 2.0 % [facility] LABORATORY Eosinophils Abs 0.2 0.0 - 0.4 [facility] x10(3)/[facility] LABORATORY Basophils % 0.4 % [facility] LABORATORY Basophils Abs 0.0 0.0 - 0.1 [facility] x10(3)/[facility] LABORATORY Immature Gran % 0.40 [...] Organization Address City/State/[place] [address] (ABNORMAL) Hemogram (08/10/2017 5:50 AM EST) Analysis Performed At Patho logist Time Signature WBC 11.3 (H) 4.0 - 9.5 [facility] x[facility](3[facility] LABORATORY RBC 3.15 (L) 4.58 - [facility] 5.54 [facility] x10(6)/[facility] LABORATORY Hemoglobin 8.9 (L) 13.7 - [facility] 16.5 gm/dL [facility] LABORATORY Hematocrit 29.0 (L) 40.5 - [facility] 48.5 % [facility] LABORATORY MCV 92.1 82.9 - [facility] 93.1 [facility] LABORATORY MCH 28.3 27.5 - [place] RYAN 32.1 pg [facility] LABORATORY MCHC 30.7 (L) 32.0 - [facility] RYAN 35.7 gm/dL [facility] LABORATORY Platelets 231 145 - 357 [facility] x10(3)/[facility] LABORATORY RDWSD 53.9 (H) 36.0 - [facility] RYAN 45.0 [facility] LABORATORY RDWCV 16.2 (H) 11.4 - [facility] RYAN 13.8 % [facility] LABORATORY MPV 8.7 7.6 - 12.9 [facility] nRBC % Auto 0.0 % [facility] LABORATORY nRBC Abs Auto 0.000 0.000 - [facility] RYAN 0.000 [facility] x10(3)/[facility] LABORATORY Specimen Anatomical Collection Method Collection Time Receive d Time (Source) Location / / Volume Laterality Blood specimen 08/10/2017 5:50 AM 018 5:59 (specimen) EST AM EST Resulting Agency Comment Spec In Lab Yonathan Smith MD HEMATOLOGY ORDERABLES Performing Organization Address City/State/[place] [address] (ABNORMAL) Basic Metabolic Panel (non-fasting) (08/10/2017 5:50 AM EST) P athologist Signature Glucose Lvl 135 65 - 199 [facility] mg/dL [facility] LABORATORY Comment: Diabetes: >=200 mg/dL [...] or in patients with acute kidney failure. http://[employer] Apps/DHnkdep http://[employer].We[employer] Apps/DHMCnkf Specimen Anatomical Collection Method Collection Time Receive d Time (Source) Location / / Volume Laterality Blood specimen 08/10/2017 5:50 AM 018 5:59 (specimen) EST AM EST Resulting Agency Comment Spec In Lab Yonathan Smith MD CHEMISTRY ORDERABLES Performing Organization Address City/State/ZIP Code Phon e Number [address] (ABNORMAL) Prothrombin Time (08/10/2017 [...] Organization Address City/State/[place] [address] (ABNORMAL) POCT Glucose (08/10/2017 4:01 AM EST) athologist Signature POC Glucose 206 (H) 65 - 199 [facility] mg/dL [facility] LABORATORY Comment: Supplemental ranges: <140 mg/dL before meals <180 mg/dL all other times of the day Specimen Anatomical Collection Method Collection Time Receive d Time (Source) Location / / Volume Laterality Blood specimen 08/10/2017 4:01 AM 018 4:01 (specimen) EST AM EST Yonathan Smith MD POINT OF CARE TEST ORDERABLE S Performing Organization Address City/State/[place] [address] POCT Glucose (08/10/2017 2:01 AM EST) athologist Signature POC Glucose 188 65 - 199 [facility] mg/dL [facility] LABORATORY Comment: Supplemental ranges: <140 mg/dL before meals <180 mg/dL all other times of the day Specimen Anatomical Collection Method Collection Time Receive d Time (Source) Location / / Volume Laterality Blood specimen 08/10/2017 2:01 AM 018 2:01 (specimen) EST AM EST Yonathan Smith MD POINT OF CARE TEST ORDERABLE S Performing Organization Address City/State/[place] [address] (ABNORMAL) POCT Glucose (08/09/2017 11:42 PM EST) athologist Signature POC Glucose 283 (H) 65 - 199 [facility] RYAN mg/dL [facility] LABORATORY Comment: Supplemental ranges: <140 [...] [facility]/[place] [address] POCT Glucose (08/09/2017 8:55 PM EST) athologist Signature POC Glucose 182 65 - 199 [facility] RYAN mg/dL [facility] LABORATORY Comment: Supplemental ranges: <140 mg/dL before meals <180 mg/dL all other times of the day Specimen Anatomical Collection Method Collection Time Receive d Time (Source) Location / / Volume Laterality Blood specimen 08/09/2017 8:55 PM 018 8:55 (specimen) EST PM EST Yonathan Smith MD POINT OF CARE TEST ORDERABLE S Performing Organization Address City/State/[place] [address] (ABNORMAL) APTT (08/09/2017 6:42 PM EST) athologist Signature PTT 90 (H) 25 - 35 sec [facility] LABORATORY Comment: The recommended therapeutic range for fu ll dose, unfractionated heparin at [facility] is 80 ? 114 seconds. The use [...] Address City/State/ZIP Code Phon e Number [address] POCT Glucose (08/09/2017 4:41 PM EST) athologist Signature POC Glucose 195 65 - 199 [place] mg/dL [facility] LABORATORY Comment: Supplemental ranges: <140 [...] [facility]/ZIP Code Phon e Number [address] POCT Glucose (08/09/2017 12:29 PM EST) athologist Signature POC Glucose 140 65 - 199 [place] mg/dL [facility] LABORATORY Comment: Supplemental ranges: <140 mg/dL before meals <180 mg/dL all other times of the day Specimen Anatomical Collection Method Collection Time Receive d Time (Source) Location / / Volume Laterality Blood specimen 08/09/2017 12:29 8 (specimen) PM EST 12:29 PM EST Yonathan Smith MD POINT OF CARE TEST ORDERABLE S Performing Organization Address City/State/ZIP Code Phon e Number [address] POCT Glucose (08/09/2017 9:59 AM EST) athologist Signature POC Glucose 135 65 - 199 [place] mg/dL [facility] LABORATORY Comment: Supplemental ranges: <140 [...] [facility]/[place] [address] Specimen to Pathology (08/09/2017 [...] PATHOLOGY/CYTOLOGY ORDERABLE S Performing Organization Address City/[facility]/[place] [address] Surgical Pathology Report (08/09/2017 8:40 AM EST) Component Value Ref Test Analysis Performed At [facility] gist Range Method Time Signature Surgical [id number] ? Location: [facility]; [facility]; A [facility] Report The signing pathologist has (i) examined the relevant preparation(s) for the [facility] specimen(s) and (ii) rendered or confirmed the diagnosis(es) . HOSPITAL LABORATORY . 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 ?Viable proximal resection margins. Electronically signed by: ??Henrique Saravia MD Verified: ??08/13/2017 ?Pathologist Performed at: ??-[facility] Dept. of Pathology, [place], [place] CLINICAL INFORMATION Specimen Submitted: A - [...] PATHOLOGY/CYTOLOGY ORDERABLE S Performing Organization Address City/[facility]/[place] [address] Anaerobic Culture (08/09/2017 8:30 AM EST) [facility] gist Method Time Signature Anaerobic No anaerobic [facility] Culture organisms [facility] LABORATORY Specimen Anatomical Collection Method [...] Organization Address City/State/[place] [address] (ABNORMAL) Abscess/Wound Aspirate Culture (08/09/2017 8:30 AM EST) Patholo gist Method Time Signature Abscess/Wound Moderate mixed [place] Aspirate bacterial [place] Culture morphotypes [facility] normal LABORATORY cutaneous leroy (A) Gram Stain Rare White Blood Cells [place] Few Gram Positive Cocci in pairs [place] (A) [facility] LABORATORY Organism Gram Positive [place] Cocci in pairs [place] (A) [facility] LABORATORY Specimen Anatomical Collection Method [...] Address City/State/ZIP Code Phon e Number [address] POCT Glucose (08/09/2017 4:28 AM EST) P athologist Signature POC Glucose 128 65 - 199 [facility] mg/dL [facility] LABORATORY Comment: Supplemental ranges: <140 [...] [facility]/[place] [address] ABORH Recheck Status (08/09/2017 1:10 AM EST) [facility] gist Method Time Signature ABORH Type Completed [facility] LABORATORY Specimen Anatomical Collection Method Collection Time Receive d Time (Source) Location / / Volume Laterality Blood specimen 08/09/2017 1:10 AM 018 1:35 (specimen) EST AM EST Resulting Agency Comment Spec In Lab Yonathan Smith MD BLOOD BANK ORDERABLES Performing Organization Address City/[facility]/[place] [address] Antibody screen (08/09/2017 1:10 AM EST) Patholo gist Method Time Signature Ab Screen Negative [facility] LABORATORY Expires at 08/12/2017 BARBARA ZHAORYAN [id number] on: [facility] LABORATORY Specimen Anatomical Collection Method Collection Time Receive d Time (Source) Location / / Volume Laterality Blood specimen 08/09/2017 1:10 AM 018 1:35 (specimen) EST AM EST Resulting Agency Comment Spec In Lab Yonathan Smith MD BLOOD BANK ORDERABLES Performing Organization Address City/[facility]/ZIP Code Phon e Number [address] ABO/Rh Typing (08/09/2017 1:10 AM EST) P athologist Signature ABORh Type O Pos [facility] LABORATORY Specimen Anatomical Collection Method Collection Time Receive d Time (Source) Location / / Volume Laterality Blood specimen 08/09/2017 1:10 AM 018 1:35 (specimen) EST AM EST Resulting Agency Comment Spec In Lab Yonathan Smith MD BLOOD BANK ORDERABLES Performing Organization Address City/[facility]/[place] [address] (ABNORMAL) APTT (08/09/2017 1:10 AM EST) P athologist Signature PTT 86 (H) 25 - 35 sec [facility] LABORATORY Comment: The recommended therapeutic range for fu ll dose, unfractionated heparin at [facility] is 80 ? 114 seconds. The use [...] Smith MD HEMATOLOGY ORDERABLES Performing Organization Address City/[facility]/[place] [address] (ABNORMAL) Differential, Automated (08/09/2017 1:10 AM EST) [facility] Method Time Signature Neutrophils % 76.2 % [facility] LABORATORY Neutr Abs (ANC) 8.59 (H) 1.70 - [facility] 6.10 [facility] x10(3)/[facility] LABORATORY Lymphocytes % 11.0 % [facility] LABORATORY Lymphocytes Abs 1.2 0.9 - 3.2 [facility] x10(3)/[facility] LABORATORY Monocytes % 8.4 % [facility] LABORATORY Monocyte Abs 1.0 (H) 0.3 - 0.9 [facility] x10(3)/[facility] LABORATORY Eosinophils % 3.5 % [facility] LABORATORY Eosinophils Abs 0.4 0.0 - 0.4 [facility] x10(3)/[facility] LABORATORY Basophils % 0.5 % [facility] LABORATORY Basophils Abs 0.1 0.0 - 0.1 [facility] x10(3)/[facility] LABORATORY Immature Gran % 0.40 [...] Organization Address City/State/[place] [address] [facility] [address] (ABNORMAL) Hemogram (08/09/2017 1:10 AM EST) Analysis Performed At Patho logist Time Signature WBC 11.3 (H) 4.0 - 9.5 [facility] x10(3)/[facility] LABORATORY RBC 3.47 (L) 4.58 - [facility] 5.54 [facility] x10(6)/[facility] LABORATORY Hemoglobin 10.0 (L) 13.7 - [facility] g[facility]/dL [facility] LABORATORY Hematocrit 31.9 (L) 40.5 - [facility] 48.5 % [facility] LABORATORY MCV 91.9 82.9 - [facility] 93.1 [facility] LABORATORY MCH 28.8 27.5 - [facility] 32.1 pg [facility] LABORATORY MCHC 31.3 (L) 32.0 - [facility] 35.7 gm/dL [facility] LABORATORY Platelets 234 145 - 357 [facility] x10(3)/[facility] LABORATORY RDWSD 54.0 (H) 36.0 - [facility] 45.0 [facility] LABORATORY RDWCV 16.2 (H) 11.4 - [facility] 13.8 % [facility] LABORATORY MPV 8.7 7.6 - 12.9 [facility] LABORATORY nRBC % Auto 0.0 % [facility] LABORATORY nRBC Abs Auto 0.000 0.000 - [facility] 0.000 [facility] x10(3)/[facility] LABORATORY Specimen Anatomical Collection Method Collection Time Receive d Time (Source) Location / / Volume Laterality Blood specimen 08/09/2017 1:10 AM 018 1:19 (specimen) EST AM EST Resulting Agency Comment Spec In Lab Yonathan Smith MD HEMATOLOGY ORDERABLES Performing Organization Address City/State/[place] [address] (ABNORMAL) Prothrombin Time (08/09/2017 [...] City/State/ZIP Code Phon e Number [place] [id number] [address] (ABNORMAL) Basic Metabolic Panel (non-fasting) (08/09/2017 1:10 AM EST) P athologist Signature Glucose Lvl 108 65 - 199 [facility] mg/dL [facility] LABORATORY Comment: Diabetes: >=200 mg/dL [...] or in patients with acute kidney failure. http://SupportLocal/DHnkdep http://SupportLocal/DHMCnkf Specimen Anatomical Collection Method Collection Time Receive d Time (Source) Location / / Volume Laterality Blood specimen 08/09/2017 1:10 AM 018 1:19 (specimen) EST AM EST Resulting Agency Comment Spec In Lab Yonathan Smith MD CHEMISTRY ORDERABLES Performing Organization Address City/State/ZIP Code Phon e Number [address] POCT Glucose (08/09/2017 12:05 AM EST) athologist Signature POC Glucose 128 65 - 199 [facility] mg/dL [facility] LABORATORY Comment: Supplemental ranges: <140 [...] [facility]/[place] [address] (ABNORMAL) POCT Glucose (08/08/2017 7:36 PM EST) athologist Signature POC Glucose 215 (H) 65 - 199 [facility] mg/dL [facility] LABORATORY Comment: Supplemental ranges: <140 [...] [facility]/[place] [address] (ABNORMAL) POCT Glucose (08/08/2017 6:23 PM EST) athologist Signature POC Glucose 216 (H) 65 - 199 [facility] mg/dL [facility] LABORATORY Comment: Supplemental ranges: <140 [...] [facility]/[place] [address] (ABNORMAL) APTT (08/08/2017 6:00 PM EST) athologist Signature PTT 97 (H) 25 - 35 sec [facility] LABORATORY Comment: The recommended therapeutic range for fu ll dose, unfractionated heparin at [facility] is 80 ? 114 seconds. The use [...] Smith MD HEMATOLOGY ORDERABLES Performing Organization Address City/[facility]/[place] [address] POCT Glucose (08/08/2017 4:42 PM EST) athologist Signature POC Glucose 78 65 - 199 [facility] mg/dL [facility] LABORATORY Comment: Supplemental ranges: <140 mg/dL before meals <180 mg/dL all other times of the day Specimen Anatomical Collection Method Collection Time Receive d Time (Source) Location / / Volume Laterality Blood specimen 08/08/2017 4:42 PM 018 4:42 (specimen) EST PM EST Yonathan Smith MD POINT OF CARE TEST ORDERABLE S Performing Organization Address City/State/[place] [address] (ABNORMAL) POCT Glucose (08/08/2017 4:01 PM EST) athologist Signature POC Glucose 58 (L) 65 - 199 [facility] mg/dL [facility] LABORATORY Comment: Supplemental ranges: <140 mg/dL before meals <180 mg/dL all other times of the day Specimen Anatomical Collection Method Collection Time Receive d Time (Source) Location / / Volume Laterality Blood specimen 08/08/2017 4:01 PM 018 4:01 (specimen) EST PM EST Yonathan Smith MD POINT OF CARE TEST ORDERABLE S Performing Organization Address City/State/[place] [address] POCT Glucose (08/08/2017 11:51 AM EST) athologist Signature POC Glucose 90 65 - 199 [facility] mg/dL [facility] LABORATORY Comment: Supplemental ranges: <140 mg/dL before meals <180 mg/dL all other times of the day Specimen Anatomical Collection Method Collection Time Receive d Time (Source) Location / / Volume Laterality Blood specimen 08/08/2017 11:51 8 (specimen) AM EST 11:51 AM EST Yonathan Smith MD POINT OF CARE TEST ORDERABLE S Performing Organization Address City/State/[place] [address] (ABNORMAL) APTT (08/08/2017 10:27 AM EST) athologist Signature PTT 64 (H) 25 - 35 sec [facility] LABORATORY Comment: The recommended therapeutic range for fu ll dose, unfractionated heparin at [facility] is 80 ? 114 seconds. The use [...] Address City/State/ZIP Code Phon e Number [address] POCT Glucose (08/08/2017 8:02 AM EST) athologist Signature POC Glucose 178 65 - 199 [facility] mg/dL [facility] LABORATORY Comment: Supplemental ranges: <140 mg/dL before meals <180 mg/dL all other times of the day Specimen Anatomical Collection Method Collection Time Receive d Time (Source) Location / / Volume Laterality Blood specimen 08/08/2017 8:02 AM 018 8:02 (specimen) EST AM EST Yonathan Smith MD POINT OF CARE TEST ORDERABLE S Performing Organization Address [facility] Phon e Number [address] (ABNORMAL) APTT (08/08/2017 4:51 AM EST) athologist Signature PTT >160 25 - 35 [facility] (Critical) [facility] LABORATORY Comment: Called by: HOWARD, Read back by: Melba Jaramillo, Date/Time:08/08/17 05:43. The recommended therapeutic range for fu ll dose, unfractionated heparin at [facility] is 80 ? 114 seconds. The use [...] Smith MD HEMATOLOGY ORDERABLES Performing Organization Address City/[facility]/ZIP Code Phon e Number [address] (ABNORMAL) Differential, Automated (08/08/2017 4:51 AM EST) Patholo gist Method Time Signature Neutrophils % 77.9 % [facility] LABORATORY Neutr Abs (ANC) 8.17 (H) 1.70 - [facility] 6.10 [facility] x10(3)/[facility] L LABORATORY Lymphocytes % 10.3 % [facility] LABORATORY Lymphocytes Abs 1.1 0.9 - 3.2 [facility] x10(3)/[facility] LABORATORY Monocytes % 7.0 % [facility] LABORATORY Monocyte Abs 0.7 0.3 - 0.9 [facility] x10(3)/[facility] LABORATORY Eosinophils % 3.6 % [facility] LABORATORY Eosinophils Abs 0.4 0.0 - 0.4 [facility] x10(3)/[facility] LABORATORY Basophils % 0.5 % [facility] LABORATORY Basophils Abs 0.0 0.0 - 0.1 [facility] x10(3)/[facility] LABORATORY Immature Gran % 0.70 [...] Abs 0.07 (H) 0.00 - 0.04 x10(3)/[facility] LABORATORY Specimen Anatomical Collection Method Collection Time Receive d Time (Source) Location / / Volume Laterality Blood specimen 08/08/2017 4:51 AM 018 5:14 (specimen) EST AM EST Resulting Agency Comment Spec In Lab Yonathan Smith MD HEMATOLOGY ORDERABLES Performing Organization Address City/State/[place] [address] (ABNORMAL) Hemogram (08/08/2017 4:51 AM EST) Analysis Performed At Patho logist Time Signature WBC 10.5 (H) 4.0 - 9.5 [facility] x10(3)/[facility] LABORATORY RBC 3.27 (L) 4.58 - [facility] 5.54 [facility] x10(6)/[facility] LABORATORY Hemoglobin 9.3 (L) 13.7 - [facility] 16.[facility] gm/dL [facility] LABORATORY Hematocrit 30.3 (L) 40.5 - [facility] 48.5 % [facility] LABORATORY MCV 92.7 82.9 - [facility] 93.1 [facility] LABORATORY MCH 28.4 27.5 - [facility] 32.1 pg [facility] LABORATORY MCHC 30.7 (L) 32.0 - [facility] 35.7 gm/dL [facility] LABORATORY Platelets 252 145 - 357 [facility] x10(3)/[facility] LABORATORY RDWSD 54.6 (H) 36.0 - [facility] 45.0 [facility] LABORATORY RDWCV 16.2 (H) 11.4 - [facility] 13.8 % [facility] LABORATORY MPV 9.1 7.6 - 12.9 [facility] LABORATORY nRBC % Auto 0.0 % [facility] LABORATORY nRBC Abs Auto 0.000 0.000 - [facility] 0.000 [facility] x10(3)/[facility] LABORATORY Specimen Anatomical Collection Method Collection Time Receive d Time (Source) Location / / Volume Laterality Blood specimen 08/08/2017 4:51 AM 018 5:14 (specimen) EST AM EST Resulting Agency Comment Spec In Lab Yonathan Smith MD HEMATOLOGY ORDERABLES Performing Organization Address City/State/[place] [address] (ABNORMAL) Prothrombin Time (08/08/2017 [...] Organization Address City/State/[place] [address] (ABNORMAL) Basic Metabolic Panel (non-fasting) (08/08/2017 4:51 AM EST) athologist Signature Glucose Lvl 229 (H) 65 - 199 [facility] mg/dL [facility] LABORATORY Comment: Diabetes: >=200 mg/dL [...] or in patients with acute kidney failure. http://[email or web address].Weever Apps/DHnkdep [email or web address]://[email or web address] [email or web address] Specimen Anatomical Collection Method Collection Time Receive d Time (Source) Location / / Volume Laterality Blood specimen 08/08/2017 4:51 AM 018 5:14 (specimen) EST AM EST Resulting Agency Comment Spec In Lab Yonathan Smith MD CHEMISTRY ORDERABLES Performing Organization Address City/State/[place] [address] POCT Glucose (08/08/2017 4:20 AM EST) athologist Signature POC Glucose 193 65 - 199 [facility] mg/dL [facility] LABORATORY Comment: Supplemental ranges: <140 mg/dL before meals <180 mg/dL all other times of the day Specimen Anatomical Collection Method Collection Time Receive d Time (Source) Location / / Volume Laterality Blood specimen 08/08/2017 4:20 AM 018 4:20 (specimen) EST AM EST Yonathan Smith MD POINT OF CARE TEST ORDERABLE S Performing Organization Address City/State/[place] [address] POCT Glucose (08/07/2017 11:11 PM EST) athologist Signature POC Glucose 124 65 - 199 [facility] mg/dL [facility] LABORATORY Comment: Supplemental ranges: <140 mg/dL before meals <180 mg/dL all other times of the day Specimen Anatomical Collection Method Collection Time Receive d Time (Source) Location / / Volume Laterality Blood specimen 08/07/2017 11:11 8 (specimen) PM EST 11:11 PM EST Yonathan Smith MD POINT OF CARE TEST ORDERABLE S Performing Organization Address City/State/[place] [address] (ABNORMAL) APTT (08/07/2017 10:18 PM EST) athologist Signature PTT 114 (H) 25 - 35 sec [facility] Comment: The recommended therapeutic range for fu ll dose, unfractionated heparin at [facility] is 80 ? 114 seconds. The use [...] Smith MD HEMATOLOGY ORDERABLES Performing Organization Address City/[facility]/ZIP Code Phon e Number [address] POCT Glucose (08/07/2017 8:10 PM EST) athologist Signature POC Glucose 140 65 - 199 [place] mg/dL [facility] Comment: Supplemental ranges: <140 [...] [facility]/ZIP Code Phon e Number [address] POCT Glucose (08/07/2017 5:27 PM EST) athologist Signature POC Glucose 187 65 - 199 [place] mg/dL [facility] Comment: Supplemental ranges: <140 [...] [facility]/ZIP Code Phon e Number [address] POCT Glucose (08/07/2017 3:29 PM EST) athologist Signature POC Glucose 86 65 - 199 [place] mg/dL [facility] Comment: Supplemental ranges: <140 [...] [facility]/[place] [address] (ABNORMAL) APTT (08/07/2017 2:50 PM EST) athologist Signature PTT 60 (H) 25 - 35 sec [facility] Comment: The recommended therapeutic range for fu ll dose, unfractionated heparin at [facility] is 80 ? 114 seconds. The use [...] Smith MD HEMATOLOGY ORDERABLES Performing Organization Address City/[facility]/[place] [address] (ABNORMAL) POCT Glucose (08/07/2017 2:23 PM EST) athologist Signature POC Glucose 55 (L) 65 - 199 [facility] mg/dL [facility] Comment: Supplemental ranges: <140 [...] [facility]/[place] [address] POCT Glucose (08/07/2017 12:08 PM EST) P athologist Signature POC Glucose 77 65 - 199 [facility] mg/dL [facility] Comment: Supplemental ranges: <140 mg/dL before meals <180 mg/dL all other times of the day Specimen Anatomical Collection Method Collection Time Receive d Time (Source) Location / / Volume Laterality Blood specimen 08/07/2017 12:08 8 (specimen) PM EST 12:08 PM EST Yonathan Smith MD POINT OF CARE TEST ORDERABLE S Performing Organization Address City/State/[place] [address] (ABNORMAL) Differential, Automated (08/07/2017 7:30 AM EST) Patholo gist Method Time Signature Neutrophils % 73.8 % [facility] Neutr Abs (ANC) 7.17 (H) 1.70 - [facility] 6.10 [facility] x10(3)/[facility] LABORATORY Lymphocytes % 12.2 % [facility] Lymphocytes Abs 1.2 0.9 - 3.2 [facility] x10(3)/[facility] LABORATORY Monocytes % 9.0 % [facility] Monocyte Abs 0.9 0.3 - 0.9 [facility] x10(3)/[facility] LABORATORY Eosinophils % 3.9 % [facility] Eosinophils Abs 0.4 0.0 - 0.4 [facility] x10(3)/[facility] LABORATORY Basophils % 0.6 % [facility] Basophils Abs 0.1 0.0 - 0.1 [facility] x10(3)/[facility] LABORATORY Immature Gran % 0.50 % [facility] [...] Organization Address City/State/[place] [address] (ABNORMAL) Hemogram (08/07/2017 7:30 AM EST) Analysis Performed At Patho logist Time Signature WBC 9.7 (H) 4.0 - 9.5 [facility] x10(3)/[facility] LABORATORY RBC 3.54 (L) 4.58 - [facility] 5.54 [facility] x10(6)/[facility] LABORATORY Hemoglobin 9.9 (L) 13.7 - [facility] 16.5 gm/dL [facility] Hematocrit 32.3 (L) 40.5 - [facility] 48.5 % [facility]AT[facility] MCV 91.2 82.9 - [facility] 93.1 [facility] LABORATORY MCH 28.0 27.5 - [facility] 32.1 pg [facility] MCHC 30.7 (L) 32.0 - [facility] 35.7 gm/dL [facility] Platelets 312 145 - 357 [facility] x10(3)/[facility] LABORATORY RDWSD 53.2 (H) 36.0 - [facility] 45.0 [facility] LABORATORY RDWCV 16.0 (H) 11.4 - [facility] RYAN 13.8 % [facility] LABORATORY MPV 8.9 7.6 - 12.9 [facility] nRBC % Auto 0.0 % [facility] nRBC Abs Auto 0.000 0.000 - [facility] RYAN 0.000 [facility] x10(3)/[facility] LABORATORY Specimen Anatomical Collection Method Collection Time Receive d Time (Source) Location / / Volume Laterality Blood specimen 08/07/2017 7:30 AM 018 7:45 (specimen) EST AM EST Resulting Agency Comment Spec In Lab Yonathan Smith MD HEMATOLOGY ORDERABLES Performing Organization Address City/[facility]/[place] [address] (ABNORMAL) Basic Metabolic Panel (non-fasting) (08/07/2017 7:30 AM EST) athologist Signature Glucose Lvl 80 65 - 199 [facility] mg/dL [facility] Comment: Diabetes: >=200 mg/dL [...] or in patients with acute kidney failure. http://[employer]/DHnkdep http://[employer]/DHMCnkf Specimen Anatomical Collection Method Collection Time Receive d Time (Source) Location / / Volume Laterality Blood specimen 08/07/2017 7:30 AM 018 7:45 (specimen) EST AM EST Resulting Agency Comment Spec In Lab Yonathan Smith MD CHEMISTRY ORDERABLES Performing Organization Address City/[facility]/ZIP Code Phon e Number [place] [address] POCT Glucose (08/07/2017 7:27 AM EST) P athologist Signature POC Glucose 81 65 - 199 [facility] mg/dL [facility] Comment: Supplemental ranges: <140 mg/dL before meals <180 mg/dL all other times of the day Specimen Anatomical Collection Method Collection Time Receive d Time (Source) Location / / Volume Laterality Blood specimen 08/07/2017 7:27 AM 018 7:27 (specimen) EST AM EST Yonathan Smith MD POINT OF CARE TEST ORDERABLE S Performing Organization Address City/State/ZIP Code Phon e Number [address] APTT (08/07/2017 7:04 AM EST) athologist Signature PTT 34 25 - 35 sec [facility] Comment: The recommended therapeutic range for fu ll dose, unfractionated heparin at [facility] is 80 ? 114 seconds. The use [...] Organization Address City/State/[place] [address] (ABNORMAL) Prothrombin Time (08/07/2017 [...] Smith MD HEMATOLOGY ORDERABLES Performing Organization Address City/[facility]/ZIP Code Phon e Number [address] POCT Glucose (08/07/2017 4:03 AM EST) athologist Signature POC Glucose 93 65 - 199 [place] mg/dL [facility] Comment: Supplemental ranges: <140 [...] [facility]/ZIP Code Phon e Number [address] POCT Glucose (08/07/2017 12:04 AM EST) athologist Signature POC Glucose 107 65 - 199 [place] mg/dL [facility] Comment: Supplemental ranges: <140 [...] [facility]/ZIP Code Phon e Number [address] POCT Glucose (08/06/2017 7:56 [...] Organization Address City/State/[place] [address] TcPO2 (08/06/2017 2:32 PM EST) Component Value Ref Test Analysis Performed At [facility] gist Range Method Time Signature VB Text Department: Vascular Surgery Lab VASCUBASE Report Patient: [id number] (GREGORY HOANG) CPT: 8027427 ICD10: I99.8 Referring Physician: YONATHAN SMITH ?? [...] 81 mg 0823 (Given - Provider: Chiquis muoñz RN) 0800 (Given - Provider: Dory Truong, [...] comment - Comment: BP 95/58. Per Dr. Folres. Ok to hold) 0800 (Given - Provider: [...]
Routine documented in this encounter Care Teams Tread Cutter Relationship Specialty Start Date End Date Lovely Vicente MD PCP - General 04/16/[address] [place] [address] [address] [place] [address] documented as of this encounter
--- OUTSIDE RECORDS SUMMARY | 2022-03-06 08:11 | XMS_ITS | Encounter Summary ---
:1945 [place] [address] Care Team Providers Name Role Phone Lovely Vicente MD Primary Care Provider Encounter Details Date Type Department Care Team Description 08/03/2017 Hospital Encounter Radiology Library at [place], Tommy Mijares [facility] [place] [address] VASCULAR SURGERY [phone] [place], [place] [address] (Wo rk) Social History Tobacco [...] Nobles MD [facility] CARDIOLOGY [place], [place] [address] ( rk) 06/10/2022 Office Visit Dermatology Laura Scherer MD [facility] [address], [place] [address] (Wo rk) documented as [...] City/State/ZIP Code Phon e Number DH RAD [place], [place] documented in this encounter Visit Diagnoses Diagnosis Pain Generalized pain documented in this encounter Care Teams Patch Press Operator Relationship Specialty Start Date End Date Lovely Vicente MD PCP - General 04/16/[address] [place] [address] documented as of this encounter
--- OUTSIDE RECORDS SUMMARY | 2022-03-06 08:12 | XMS_ITS | Encounter Summary ---
:1945 [place] [address] Care Team Providers Name Role Phone Lovely Vicente MD Primary Care Provider Reason for Visit Reason Onset Date Comments Questions 07/16/2017 fluid retention Encounter Details Date Type Department Care Team Description 07/16/2017 Telephone Cardiology at [facility] Martha Comer, Questions ([facility] RN retention ) [place] [phone] Social History Tobacco Use Types Packs/Day [...] the direct number to the HF team ([phone]). She is aware of his appt with [employer] Hans on 07/21/17 and the need for labs prior to that visit. verbalized good understanding of the current POC. documented in this encounter Plan of Treatment Upcoming Encounters Date Type Specialty Care Team Description 03/26/2022 Office Visit Cardiology Vitaliy Nobles MD [facility] [address], [place] [address] (Wo rk) 06/10/2022 Office Visit Dermatology Laura Scherer MD [facility] [address] [facility], [place] [address] (Wo rk) documented as of this encounter Visit Diagnoses Not on filedocumented in this encounter Care Teams Fence Installer Helper Relationship Specialty Start Date End Date Lovely Vicente MD PCP - General 04/16/15 [facility] [address] [place] [address] documented as of this encounter
--- OUTSIDE RECORDS SUMMARY | 2022-03-06 08:12 | XMS_ITS | Encounter Summary ---
:1945 [place] [address] Care Team Providers Name Role Phone Lovely Vicente MD Primary Care Provider Reason for Visit Reason Comments Hospital Transfer cold foot post CABG Auth/Cert Specialty Diagnoses / Procedures Referred By Contact Refer red To Contact Diagnoses Critical lower limb ischemia Procedures NAYE IPI Referral ID Status Reason Start Date Expiration Date Visits Requ ested Visits Authorized [id number] 1 1 Encounter Details Date Type Department Care Team Description 07/20/2017 Hospital Encounter 4 Herminia Ibarra MD [facility] [place] [address] [facility] Arik Clement MD [facility] [place] [address] [place] [address] Social History Tobacco Use Types Packs/Day Years [...] home. Important Studies and Lab Data: Labs: [facility] Lab Results Component Value Date INR 1.5 [...] For any problems or questions please call [phone] ZELDA Smith, school transportation director Nurse Clinician For issues on weeknights after 5pm and weekends please call [phone] and ask for the Vascular Fellow regional medical director. General Instructions None Future Appointments and Orders Future Appointments Provider Department Dept Phone 08/04/2017 1:00 PM Daniele Mooney [place] [facility] [phone] 08/04/2017 2:15 PM Arik Clement MD [facility] Surgery [facility] [phone] 09/07/2017 3:00 PM MAYRA CHACON Lab [facility] [phone] 09/07/2017 4:00 PM Luz Prescott MD Endocrinology at [facility] [phone] Future Orders Complete By Expires Arterial Duplex Leg, Unil [VAS32 Custom] 07/27/2017 (Approximate) 01/26/2018 Process Instructions: There is no in-house vascular laborer shellfish processing available on weeknights (5pm-8am), weekends, or holidays. IF THIS IS A REQUEST FOR AN EMERGENT STUDY DURING THOSE HOURS, please have the senior provider responsible for the patient page the Vascular Surgery Fellow/Senior Resident regional medical director to discuss options. Scheduling Instructions: Questions: Indication for study/signs & symptoms: Right femoral PSA s/p cardiac cath Question to be answered: bloodflow to PSA Laterality: Right Is there a RIGHT LOWER EXTREMITY graft?: No Lower limb right segments: Common Femoral Is there a stent?: No At which location will this be performed?: [facility] Referral to Home Health - at DISCHARGE [[id number] CPT(R)] As directed Process Instructions: Scheduling Instructions: Comments: DOCUMENTATION FOR VNA SERVICES (INCLUDING THOSE PATIENTS WITH MEDICARE COVERAGE REQUIRING HOME VNA SERVICES AND/OR HOSPICE SERVICES) PATIENT'S LOCATION: Gregory Fatima [address] [place] [address] [place] [id number] (home) Cell: Telephone Information: Equipment Cleaner And Tester's Name: self In discussion with the attending physician, it is certified that this patient is under their care and that they, or a Nurse Practitioner,Clinical Nurse specialist or Physician Knitting Supervisor who is working directly with them, [...] CARE AGENCY: [facility] ([facility] [place] [facility]-is in [place]) PHONE: [phone] FAX: [phone] Start of care: 24- 48 hours FOR [...] patient'sPCP: Lovely Vicente MD [address] [facility] [place] / [place] [address] All VNA agencies which cover the area [...] For any problems or questions please call [phone] ZELDA Smith, school transportation director Nurse Clinician For issues on weeknights after 5pm and weekends please call [phone] and ask for the Vascular Fellow regional medical director. documented in this encounter Medications at Time [...] RN - 07/20/2017 2:53 PM EST The patient/passenger relations representative has been provided a list of Home Health Agencies/DME vendors which serve their preferred geographic area. A letter describing our affiliations was reviewed with them and theywere educated about their right to choose where referrals are placed. Patient requests referral to [facility]. PHONE: [phone] FAX: [phone]. Expected date of discharge: 07/20/2017 . Referral routed to the Human Resources Associate for matching with agency/vendor and to provide any required information. Naty Pulliam RN - 07/20/2017 11:37 AM EST The patient/passenger relations representative has been provided a list of Home Health Agencies/DME vendors which serve their preferred geographic area. A letter describing our affiliations was reviewed with them and theywere educated about their right to choose where referrals are placed. Patient requests referral to [facility] ([facility] [place] [facility]- is in [place] PHONE: [phone] FAX: [phone]. Expected date of discharge: 07/20/2017 . Referral routed to the Human Resources Associate for matching with agency/vendor and to provide any required information. Katina Pulliam RNtent worker Janneth Lee MD - 07/20/2017 7:29 AM EST Vascular Surgery Progress Note Patient ID Gregory Ftaima is a 72 y.o. male with a [...] performed by Manny Mcknight MD at [facility] MAIN OR ??? PRO CABG, ARTERIAL, SINGLE N/A 07/07/2017 @CABG, USING ARTERIAL GRAFT;SINGLE ARTERIAL GRAFT (WRVU 33.75) performed by Yuan Retana MD at [facility] MAIN OR ??? PRO CABG, ARTERY-VEIN, TWO N/A 07/07/2017 @CABG, TWO VENOUS GRAFTS & ARTERIAL GRAFT (WRVU 7.93) performed by Yuan Retana MD at [facility] MAIN OR ??? PRO COLONOSCOPY, REMV LESN, SNARE 01/16/2014 COLONOSCOPY, POLYPECTOMY, REMOVAL LESION BY SNARE performed by Nohemi Jaimes MD at [facility] ENDOSCOPY ??? PRO ENDOSCOPY W/VIDEO-ASST VEIN HARVEST, CABG Right 07/07/2017 ENDOSCOPIC HARVEST VEIN(S) FOR CABG (WRVU 0.31) performed by Yuan Retana MD at [facility] MAIN OR ??? PRO THYROIDECTOMY 03/28/2013 THYROIDECTOMY, TOTAL OR COMPLETE performed by Manny Mcknight MD at [facility] MAIN OR Functional Status/Social Hx: Social [...] -ISS -pain control Discussed with Vascular Fellow regional medical director. Chris Valadez MD PGY2 Pager [phone] documented in this encounter ED Notes Annita Reaves MD - 07/20/2017 3:15 PM EST Emergency Department Gregory Fatima is a 72 y.o. male who presents to [facility] with arterial thrombosis. History of Present Illness [...] Within the Past 30 Days: [facility] 07/05/17 Anticipated Length Of Stay (If known): [...] Health/Prescription Coverage: Primary Insurance: MEDICARE Secondary Insurance: [employer] [facility] Prescription Coverage: See above Preferred Pharmacy: [facility] Other: N/A Primary Care Provider: Lovely Vicente MD [phone] Patient/Caregiver Goals of Treatment: Patient plans to return home when medically ready Potential Needs for Transition of Care: Rehab/SNF: N/A Home Health: [facility] ([facility] [place] [facility]-is in [place]) PHONE: [phone] FAX: [phone] DME: N/A Dialysis: N/A Community Resources: N/A Transportation: Patient family will transport Other: N/A Anticipated Barriers to Discharge/Special Considerations: None Plan: Patient plans to return home with home health services when medically ready A member of the Care Management team will continue to monitor progress, follow for continuity of care and assist with transition of care planning. Naty Pulliam RN Pager: [phone] ED Triage - Rayna Weir RN - 07/20/2017 12:28 AM EST Pt transferred from [place] for blue right foot and painful toes. [...] [facility] [address] [place], [place] [address] ([facility]) 06/10/2022 Office Visit Dermatology Laura Scherer MD [facility] DR TE[address] GR-DERMAT [place], [place] [address] ([facility]) documented as of this encounter Procedures Procedure Name Priority Date/Time Associated Comments Diagnosis STEEL ROLLER SCAN 09/02/2017 12:00 Res ults for this [...] EST procedure are i n ([facility] the results section. [...] documented in this encounter Results SCAN DOC: STEEL ROLLER (09/02/2017 12:00 AM EST) Narrative 09/02/2017 12:00 AM EST This result has an attachment that is no t available. Ordered by an unspecified provider. Scanning Provider MEDIA MGR SCAN EXT ORDR/RSLT POCT Glucose (07/20/2017 12:04 PM EST) P athologist Signature POC Glucose 189 65 - 199 [facility] mg/dL [facility] LABORATORY Comment: Supplemental ranges: <140 mg/dL before meals <180 mg/dL all other times of the day Specimen Anatomical Collection Method Collection Time Receive d Time (Source) Location / / Volume Laterality Blood specimen 07/20/2017 12:04 7 (specimen) PM EST 12:04 PM EST Arik Clement MD POINT OF CARE TEST ORDERABLE S Performing Organization Address City/State/ZIP Code Phon e Number [address] (ABNORMAL) Differential, Automated (07/20/2017 10:34 AM EST) [facility] Method Time Signature Neutrophils % 84.3 % [facility] LABORATORY Neutr Abs (ANC) 14.27 (H) 1.70 - [facility] 6.10 [facility] x10(3)/[facility] LABORATORY Lymphocytes % 5.6 % [facility] LABORATORY Lymphocytes Abs 1.0 0.9 - 3.2 [facility] x10(3)/[facility] LABORATORY Monocytes % 6.1 % [facility] LABORATORY Monocyte Abs 1.0 (H) 0.3 - 0.9 [facility] x10(3)/[facility] LABORATORY Eosinophils % 2.4 % [facility] LABORATORY Eosinophils Abs 0.4 0.0 - 0.4 [facility] x10(3)/[facility] LABORATORY Basophils % 0.5 % [facility] LABORATORY Basophils Abs 0.1 0.0 - 0.1 [facility] x10(3)/[facility] LABORATORY Immature Gran % 1.10 % [facility] LABORATORY Comment: Immature granulocytes(IG's)percentage an d absolute count will include metamyelocytes, myelocytes, and promyelo cytes. Blood smears from CBCs yielding IG's will be scanned manually for concor dance. If this scan disagrees with the automated IG or if promyelocytes are not ed, a manual differential will be performed. Melisa Gran Abs 0.19 (H) 0.00 - 0.04 x10(3)/[facility] LABORATORY Specimen Anatomical Collection Method Collection Time Receive d Time (Source) Location / / Volume Laterality Blood specimen 07/20/2017 10:34 7 (specimen) AM EST 10:39 AM EST Resulting Agency Comment Spec In Lab Arik Clement MD HEMATOLOGY ORDERABLES Performing Organization Address City/[facility]/[place] [address] (ABNORMAL) Hemogram (07/20/2017 10:34 AM EST) Analysis Performed At Patho logist Time Signature WBC 17.0 (H) 4.0 - 9.5 [facility] x10(3)/[facility] LABORATORY RBC 3.70 (L) 4.58 - [facility] 5.54 [facility] x10(6)/[facility] LABORATORY Hemoglobin 10.8 (L) 13.7 - [facility] 16.5 gm/dL [facility] LABORATORY Hematocrit 33.4 (L) 40.5 - [facility] 48.5 % [facility] LABORATORY MCV 90.3 82.9 - [facility] 93.1 [facility] LABORATORY MCH 29.2 27.5 - [facility] 32.1 pg [facility] LABORATORY MCHC 32.3 32.0 - [facility] 35.7 gm/dL [facility] LABORATORY Platelets 211 145 - 357 [facility] x10(3)/[facility] LABORATORY RDWSD 49.1 (H) 36.0 - [facility] 45.0 [facility] LABORATORY RDWCV 14.7 (H) 11.4 - [facility] 13.8 % [facility] LABORATORY MPV 9.2 7.6 - 12.9 [facility] LABORATORY nRBC % Auto 0.0 % [facility] LABORATORY nRBC Abs Auto 0.000 0.000 - [facility] 0.000 [facility] x10(3)/[facility] LABORATORY Specimen Anatomical Collection Method Collection Time Receive d Time (Source) Location / / Volume Laterality Blood specimen 07/20/2017 10:34 7 (specimen) AM EST 10:39 AM EST Resulting Agency Comment Spec In Lab Arik Clement MD HEMATOLOGY ORDERABLES Performing Organization Address City/State/[place] [address] (ABNORMAL) APTT (07/20/2017 10:34 AM EST) P athologist Signature PTT 79 (H) 25 - 35 sec [facility] LABORATORY Comment: The recommended therapeutic range for fu ll dose, unfractionated heparin at [facility] is 80 ? 114 seconds. [...] Clement MD HEMATOLOGY ORDERABLES Performing Organization Address City/[facility]/ZIP Code Phon e Number [address] POCT Glucose (07/20/2017 7:41 AM EST) P athologist Signature POC Glucose 174 65 - 199 [facility] mg/dL [facility] LABORATORY Comment: Supplemental ranges: <140 mg/dL before meals <180 mg/dL all other times of the day Specimen Anatomical Collection Method Collection Time Receive d Time (Source) Location / / Volume Laterality Blood specimen 07/20/2017 7:41 AM 017 7:41 (specimen) EST AM EST Arik Clement MD POINT OF CARE TEST ORDERABLE S Performing Organization Address City/State/ZIP Code Phon e Number [address] JULIAN, legs, multiple levels (07/20/2017 7:33 AM EST) Component Value Ref Test Analysis Performed At Patholo gist Range Method Time Signature VB Text Department: Vascular Surgery Lab VASCUBASE Report Patient: [id number] (GREGORY FATIMA) CPT: 19259 ICD10: I75.021;I99.8 Referring Physician: ARIK CLEMENT ?? [...] Component Value Ref Test Analysis Performed At [facility] Range Method Time Signature VB Text Department: Vascular Surgery Lab VASCUBASE Report Patient: [id number] (GREGORY FATIMA) CPT: 30731 ICD10: I97.610;I99.8 Referring Physician: ARIK CLEMENT ?? [...] Signature POC Glucose 199 65 - 199 [facility] mg/dL [facility] LABORATORY Comment: Supplemental ranges: <140 mg/dL before meals <180 mg/dL all other times of the day Specimen Anatomical Collection Method Collection Time Receive d Time (Source) Location / / Volume Laterality Blood specimen 07/20/2017 3:41 AM 017 3:41 (specimen) EST AM EST Arik Clement MD POINT OF CARE TEST ORDERABLE S Performing Organization Address City/State/[place] [address] Lactate, whole blood, send to lab (Leb/CGP) (07/20/2017 2:25 AM EST) athologist Signature Lactate WB 2.0 0.5 - 2.2 [facility] mmol/L [facility] LABORATORY Specimen Anatomical Collection Method Collection Time Receive d Time (Source) Location / / Volume Laterality Blood specimen Venous Draw / 07/20/2017 2:25 AM 2016 2:37 (specimen) Unknown EST AM EST Resulting Agency Comment Spec In Lab Zulma Samuel MD CHEMISTRY ORDERABLES Performing Organization Address City/State/[place] [address] (ABNORMAL) APTT (07/20/2017 2:25 AM EST) P athologist Signature PTT 36 (H) 25 - 35 sec [facility] LABORATORY Comment: The recommended therapeutic range for fu ll dose, unfractionated heparin at [facility] is 80 ? 114 seconds. [...] Organization Address City/State/[place] [address] (ABNORMAL) Prothrombin Time (07/20/2017 [...] Organization Address City/State/[place] [address] (ABNORMAL) Basic Metabolic Panel (non-fasting) (07/20/2017 2:25 AM EST) athologist Signature Glucose Lvl 187 65 - 199 [facility] mg/dL [facility] LABORATORY Comment: Diabetes: >=200 mg/dL plus symp toms BUN 35 (H) 10 - 20 mg/dL [facility] LABORATORY Creatinine 1.51 (H) 0.80 - 1.50 mg/dL [facility] LABORATORY Sodium 134 (L) 135 - 145 mmol/L [facility] LABORATORY Potassium Not Perf 3.5 - 5.0 mmol/L [facility] LABOR[facility] Comment: Specimen hemolyzed. Called by: [facility], Read back by: Chitra Orantes, Date/Time:07/20/17 03:05. Please note: ??Patients with WBC >100,00 0 may have falsely elevated Potassium levels. ??For accurate Potassium quantif ication in these patients send serum separator tube (gold top) for subsequent determinations. ??Contact the Clinical Chemistry Laboratory if there are any qu estions. Chloride 92 (L) 98 - 107 mmol/L [facility] LABORATORY CO2 29 22 - 31 mmol/L [facility]OR[facility] Anion Gap 13 5 - 15 mmol/L [facility] LABOR[facility] Calcium 8.6 8.5 - 10.5 mg/dL [facility] LABORATORY Estimated GFR 46 (L) >=60 [facility] LABORATORY Comment: The reported eGFR should be multiplied b y 1.2 for patients. The MDRD is not an appropriate measure o f renal function for patients with body mass extremes or in patients with acute kidney failure. http://Glanse/DHnkdep http://Glanse/DHMCnkf Specimen Anatomical Collection Method Collection Time Receive d Time (Source) Location / / Volume Laterality Blood specimen 07/20/2017 2:25 AM 017 2:33 (specimen) EST AM EST Resulting Agency Comment Spec In Lab Annita Reaves MD CHEMISTRY ORDERABLES Performing Organization Address City/State/ZIP Code [place] [address] documented in this encounter [...] 2) 0-8,000 Units, Intravenous, BOLUS PER [facility] PROTOCOL, Starting Wed07/20/17 at 0424, Until [...]
Routine documented in this encounter Care Teams Mannequin Mold Maker Relationship Specialty Start Date End Date Lovely Vicente MD PCP - General 04/16/[address] [place] [address] documented as of this encounter
--- OUTSIDE RECORDS SUMMARY | 2022-03-06 08:12 | XMS_ITS | Encounter Summary ---
:1945 Author Organization [facility] [place] [address] Care Team Providers Name Role Phone Lovely Vicente MD Primary Care Provider Reason for Visit Reason Onset Date Comments Other 07/22/2017 lovenox bridge Encounter Details Date Type Department Care Team Description 07/22/2017 Telephone Cardiology at [facility] [place] [place] Court Cadena RN Other (lovenox bridge) [place] [phone] Social History Tobacco Use Types Packs/Day [...] 4:49 PM EST VAMSI Del Castillo, at [facility], called earlier today with a question re: lovenox bridge for this patient who was recently discharged from [facility] [place] [place] r/t a blood clot. Discharge note faxed to [facility] (fax# [phone], Ph#: [phone]) which contains instructions r/t lovenox bridge as follows: Anticoagulation: on lovenox bridge to therapeutic coumadin for AFib. Goal INR 2-3. At discharge INR=1.5. The lovenox injections can stop when INR >2, coumadin will continue indefinitely. documented in this encounter Plan of Treatment Upcoming Encounters Date Type Specialty Care Team Description 03/26/2022 Office Visit Cardiology Vitaliy Nobles MD [facility] [address] [place], [place] [address] (Wo rk) 06/10/2022 Office Visit Dermatology Laura Scherer MD [facility] [address] [place] [address] (Wo rk) documented as of this encounter Visit Diagnoses Not on filedocumented in this encounter Care Teams Mechanical Engineering Technologist Relationship Specialty Start Date End Date Lovely Vicente MD PCP - General 04/16/[address] [place] [address] documented as of this encounter
--- OUTSIDE RECORDS SUMMARY | 2022-03-06 08:12 | XMS_ITS | Encounter Summary ---
:1945 Author Organization [facility] [place] [address] Care Team Providers Name Role Phone Lovely Vicente MD Primary Care Provider Reason for Visit Reason Comments Foot Pain Auth/Cert Specialty Diagnoses / Procedures Referred By Contact Refer red To Contact Diagnoses Ischemic foot Procedures NAYE OBSVO Referral ID Status Reason Start Date Expiration Date Visits Requ ested Visits Authorized [id number] 1 1 Encounter Details Date Type Department Care Team Description 07/27/2017 Emergency 1 [facility] Lokesh Swenson MD [facility] [place] [address] Femoral artery pseudo-aneurysm, right; [facility] Tam Bauman MD [facility] [place] [address] [place] [address] Social History Tobacco Use Types Packs/Day [...] Gregory Fatima Patient Age: 72 y.o. Language: Belizean Race: White Ethnicity: Not nor Admit date: 07/27/2017 Discharge date and time: 07/27/2017 3:15 PM Attending Physician: Tma Bauman MD Discharge Physician: CARLOS ALBERTO ROSALES [...] contact your inpatient physician through the [facility] Machine Design Checker . Issues after hours and on weekends [...] critical limb ischemia, who presented to [facility] with worsening RLE pain. Pt post-op course after CABG was significant for paroxysmal Afib, and he was started on Coumadin given elevated [id number] score. He presented 2 weeks following that, on 07/20, with RLE pain/pallor andwas found to have critical limb ischemia in setting of subtherapeutic INR, pseudoaneurysm Rt SURGICAL FORCEPS FABRICATOR and occlusion b/l ant tibial arteries. He [...] in the last 7068 hours. Invalid input(s): [id number] Recent Labs 07/08/17 0400 07/07/17 0515 07/06/17 [...] was low at 1.6 here at [facility]) 7. Use the [...] previously schedule Your Inpatient Doctor(s) at [facility]: CARLOS ALBERTO ROSALES MD General Instructions None Future Appointments and Orders Future Appointments Provider Department Dept Phone 07/30/2017 8:30 AM OSWALDO, THREE L Lab 3L [facility] [phone] 07/30/2017 9:40 AM Danette Maxwell APRN Cardiology at [place] [phone] 08/04/2017 1:00 PM Daniele Mooney [place] Vascular Lab at [place] [phone] 08/04/2017 2:15 PM Arik Clement MD Vascular Surgery at [place] [phone] 08/11/2017 10:00 AM [facility] ROOM 2 XRay at [place] [phone] Please go to Licensed Electrician Area 3T ([place] Location). 08/11/2017 11:00 AM Yuan Retana MD Cardiac Surgery at [place] [phone] 09/07/2017 3:00 PM LAB, THREE L Lab 3L [facility] [phone] 09/07/2017 4:00 PM Luz Prescott MD Endocrinology at [place] [phone] Discharge References/Attachments None documented in this encounter [...] was low at 1.6 here at [facility]) 3. Use the [...] previously schedule Your Inpatient Doctor(s) at [facility]: CARLOS ALBERTO ROSALES [...] Gas) No results found for: PHART, PO2ART, SEQ5OCC Assessment/Plan: 72 y.o. male s/p CABG in [...] Education Nutrition Recommendations: Recommend continuation of [facility], CHO2 diet order [...] Diet Daily Healthy Menu Choices/Cardiac diet ([facility]-Diet) 60/ CHO counting level 2 Frequency: Effective Now Number of Occurrences: Until Specified Admit Weight: 83.92 kg Estimated body mass index is 28.13 kg/(m^2) as calculated from the following: Height as of this encounter: 172.7 cm (5' 8). Weight as of this encounter: 83.9 kg (185 lb). Lynn body weight: 68.4 kg (150 lb 12.7 [...] critical limb ischemia, who presented to [facility] with worsening RLE [...] spent >30 minutes (Day of Discharge Code 31068) involved in the final examination of the [...] ID: 72 y.o. Male presents to [facility] with persistent pain b/l lower extremities History of Present Illness: HPI 72 y.o. male with PMH ASCVD s/p CABG (07/07/17), MARIA VICTORIA on CPAP QHS, HTN, HLD, DM2, with recent hospitalization for RLE critical limb ischemia, who presented to [facility] with worsening RLE pain. Pt post-op course after CABG was significant for paroxysmal Afib, and he was started on Coumadin given elevated [id number] score. He presented 2 weeks following that, on 07/20, with RLE pain/pallor andwas found to have critical limb ischemia in setting of subtherapeutic INR, pseudoaneurysm Rt SURGICAL FORCEPS FABRICATOR and occlusion b/l ant tibial arteries. He [...] SETUP performed by Manny Mcknight MD at [facility] MAIN OR ??? PRO CABG, ARTERIAL, SINGLE N/A 07/07/2017 @CABG, USING ARTERIAL GRAFT;SINGLE ARTERIAL GRAFT (WRVU 33.75) performed by Yuan Retana MD at [facility] MAIN OR ??? PRO CABG, ARTERY-VEIN, TWO N/A 07/07/2017 @CABG, TWO VENOUS GRAFTS & ARTERIAL GRAFT (WRVU 7.93) performed by Yuan Retana MD at [facility] MAIN OR ??? PRO COLONOSCOPY, REMV LESN, SNARE 01/16/2014 COLONOSCOPY, POLYPECTOMY, REMOVAL LESION BY SNARE performed by Nohemi Jaimes MD at [facility] ENDOSCOPY ??? PRO ENDOSCOPY W/VIDEO-ASST VEIN HARVEST, CABG Right 07/07/2017 ENDOSCOPIC HARVEST VEIN(S) FOR CABG (WRVU 0.31) performed by Yuan Retana MD at [facility] MAIN OR ??? PRO THYROIDECTOMY 03/28/2013 THYROIDECTOMY, TOTAL OR COMPLETE performed by Manny Mcknight MD at [facility] MA[facility] OR Prior To Admission Medications: [...] Procedure Component Value Units Date/Time Blood culture [[id number]] Collected: 07/09/1739 Lab Status: Final result Specimen: Blood from Arm, Right Updated: 07/14/17701 Blood Culture No growth at 5 days. Blood culture [[id number]] Collected: 07/09/170 Lab Status: Final result Specimen: [...] ischemia following CABG, who presented to [facility] ED from home [...] Diet Daily Healthy Menu Choices/Cardiac diet ([facility]-Diet) 60/60/75 CHO counting level 2Cardiac, low salt, CHO 2 Discharge planning Pending improvement in pain control PT/OT/Speech PT ordered Lines/Access PIV Ocasio catheter No DVT/GI Prophylaxis Lovenox bridge to Coumadin, SCD. Code status Full Code Family PCP Lovely Vicente MD [phone] Attestation Please see my note for details [...] encounter Miscellaneous Notes Plan of Care - [place]-Joyce Damian, PT - 07/27/2017 3:26 PM EST [...] Anticipated Discharge Disposition: home with assist Pager: [phone] JOYCE KING, PT Inpatient Physical Therapy 2017 [...] patient's evaluation including the following functional test(s) [facility]. Current ability measures, co-morbidities and clinical [...] lovenox bridge. Mr. Fatima returns to [facility] ED tonight because [...] SETUP performed by Manny Mcknight MD at [facility] MA[facility] OR ??? PRO CABG, ARTERIAL, SINGLE N/A 07/07/2017 @CABG, USING ARTERIAL GRAFT;SINGLE ARTERIAL GRAFT (WRVU 33.75) performed by Yuan Retana MD at [facility] MA[facility] OR ??? PRO CABG, ARTERY-VEIN, TWO N/A 07/07/2017 @CABG, TWO VENOUS GRAFTS & ARTERIAL GRAFT (WRVU 7.93) performed by Yuan Retana MD at [facility] MAIN OR ??? PRO COLONOSCOPY, REMV LESN, SNARE 01/16/2014 COLONOSCOPY, POLYPECTOMY, REMOVAL LESION BY SNARE performed by Nohemi Jaimes MD at [facility] ENDOSCOPY ??? PRO ENDOSCOPY W/VIDEO-ASST VEIN HARVEST, CABG Right 07/07/2017 ENDOSCOPIC HARVEST VEIN(S) FOR CABG (WRVU 0.31) performed by Yuan Retana MD at [facility] MAIN OR ??? PRO THYROIDECTOMY 03/28/2013 THYROIDECTOMY, TOTAL OR COMPLETE performed by Manny Mcknight MD at [facility] MAIN OR MEDICATIONS: No current facility-administered [...] up in clinic 1-2 weeks after discharge. [facility] Vascular Surgery Plan of Care [...] Visit Cardiology Vitaliy Nobles MD [facility] CARDIOLOGY [place], [place] [address] (Wo rk) 06/10/2022 Office Visit Dermatology Laura Scherer MD [facility] [address] [place] [place], [place] [address] (Wo rk) documented as of [...] TYPE AND SCREEN STAT 07/27/2017 12:53 ([facility]/CGP/SHANDA) AM EST BASIC METABOLIC PANEL STAT 07/27/2017 12:53 Re sults for this (NON-FASTING) AM EST procedure are in the results section. documented in this encounter Results POCT Glucose (07/27/2017 11:53 AM EST) P athologist Signature POC Glucose 175 65 - 199 [facility] mg/dL [facility] Comment: Supplemental ranges: <140 mg/dL before meals <180 mg/dL all other times of the day Specimen Anatomical Collection Method Collection Time Receive d Time (Source) Location / / Volume Laterality Blood specimen 07/27/2017 11:53 8 (specimen) AM EST 11:53 AM EST Tam Bauman MD POINT OF CARE TEST ORDERABLE S Performing Organization Address City/State/[place] [address] Arterial Duplex Leg, Unil (07/27/2017 7:40 AM EST) Component Value Ref Test Analysis Performed At Patholo gist Range Method Time Signature VB Text Department: Vascular Surgery Lab VASCUBASE Report Patient: [id number] (GREGORY FATIMA) CPT: 18571 ICD10: I97.610;I72.4;Z09 Referring Physician: TAM BAUMAN ?? [...] Bauman MD VASCULAR ORDERABLES Performing Organization Address City/[facility]/ZIP Code Phon e Number VASCUBASE POCT Glucose (07/27/2017 6:51 AM EST) P athologist Signature POC Glucose 96 65 - 199 [facility] mg/dL [facility] Comment: Supplemental ranges: <140 mg/dL before meals <180 mg/dL all other times of the day Specimen Anatomical Collection Method Collection Time Receive d Time (Source) Location / / Volume Laterality Blood specimen 07/27/2017 6:51 AM 018 6:51 (specimen) EST AM EST Tam Bauman MD POINT OF CARE TEST ORDERABLE S Performing Organization Address City/[facility]/ZIP Code Phon e Number [address] ABORH Recheck Status (07/27/2017 12:53 AM EST) Patholo gist Method Time Signature ABORH Type Completed [facility] LABORATORY Specimen Anatomical Collection Method Collection Time Receive d Time (Source) Location / / Volume Laterality Blood specimen 07/27/2017 12:53 8 (specimen) AM EST 12:58 AM EST Resulting Agency Comment Spec In Lab Angela Swenson MD BLOOD BANK ORDERABLES Performing Organization Address City/[facility]/ZIP Code Phon e Number [address] Gold Tube HOLD (07/27/2017 12:53 AM EST) P athologist Signature Gold Hold Sample in [facility] LABORATORY Specimen Anatomical Collection Method Collection Time Receive d Time (Source) Location / / Volume Laterality Blood specimen Venous Draw / 07/27/2017 12:53 07/27/19 18 1:01 (specimen) Unknown AM EST AM EST Angela Swenson MD CHEMISTRY ORDERABLES Performing Organization Address City/[facility]/ZIP Code Phon e Number [place] [id number]OS[address] LAB[address]ORY [address] (ABNORMAL) Differential, Automated (07/27/2017 12:53 AM EST) [facility] Method Time Signature Neutrophils % 75.0 % [facility] Neutr Abs (ANC) 11.30 (H) 1.70 - [facility] 6.10 [facility] x10(3)/[place] LABORATORY Lymphocytes % 9.9 % [facility] Lymphocytes Abs 1.5 0.9 - 3.2 [facility] x10(3)/[facility] LABORATORY Monocytes % 8.6 % [facility] Monocyte Abs 1.3 (H) 0.3 - 0.9 [facility] x10(3)/[facility] LABORATORY Eosinophils % 4.8 % [facility] Eosinophils Abs 0.7 (H) 0.0 - 0.4 [facility] x10(3)/[facility] LABORATORY Basophils % 0.8 % [facility] Basophils Abs 0.1 0.0 - 0.1 [facility] x10(3)/[facility] LABORATORY Immature Gran % 0.90 % [facility] [...] Gran Abs 0.13 (H) 0.00 - 0.04 x10(3)/[facility] LABORATORY Specimen Anatomical Collection Method Collection Time Receive d Time (Source) Location / / Volume Laterality Blood specimen 07/27/2017 12:53 8 1:00 (specimen) AM EST AM EST Resulting Agency Comment Spec In Lab Angela Swenson MD HEMATOLOGY ORDERABLES Performing Organization Address City/State/ZIP Code Phon e Number [place] [id number] HOSPITAL LAB[address]ORY Drive (ABNORMAL) Hemogram (07/27/2017 12:53 AM EST) Analysis Performed At Patho logist Time Signature WBC 15.0 (H) 4.0 - 9.5 [facility] x[facility](3)/[facility] LABORATORY RBC 3.59 (L) 4.58 - [place] 5.54 [facility] x10(6)/[facility] LABORATORY Hemoglobin 10.3 (L) 13.7 - [facility] 16.5 gm/dL [facility] Hematocrit 32.6 (L) 40.5 - [facility] 48.5 % [facility] MCV 90.8 82.[address] [facility] 93.1 [facility] LABORATORY MCH 28.7 27.5 - [facility] 32.1 pg [facility] MCHC 31.6 (L) 32.0 - [place] 35.7 gm/dL [facility] Platelets 322 145 - 357 [facility] x10(3)/[facility] LABORATORY RDWSD 48.7 (H) 36.0 - [facility] 45.0 [facility] LABORATORY RDWCV 14.7 (H) 11.4 - [facility] 13.8 % [facility] MPV 8.9 7.6 - 12.9 [facility] LABORATORY nRBC % Auto 0.0 % [facility] nRBC Abs Auto 0.000 0.000 - [facility] 0.000 [facility] x10(3)/[facility] LABORATORY Specimen Anatomical Collection Method Collection Time Receive d Time (Source) Location / / Volume Laterality Blood specimen 07/27/2017 12:53 8 1:00 (specimen) AM EST AM EST Resulting Agency Comment Spec In Lab Angela Swenson MD HEMATOLOGY ORDERABLES Performing Organization Address City/State/[place] [address] Antibody screen (07/27/2017 12:53 AM EST) Patholo gist Method Time Signature Ab Screen Negative [facility] LABORATORY Expires at 07/30/2017 K[place]INA DAVIS [id number] on: [facility] Specimen Anatomical Collection Method Collection Time Receive d Time (Source) Location / / Volume Laterality Blood specimen 07/27/2017 12:53 8 (specimen) AM EST 12:58 AM EST Resulting Agency Comment Spec In Lab Angela Swenson MD BLOOD BANK ORDERABLES Performing Organization Address City/[facility]/[place] [address] ABO/Rh Typing (07/27/2017 12:53 AM EST) P athologist Signature ABORh Type O Pos [facility] Specimen Anatomical Collection Method Collection Time Receive d Time (Source) Location / / Volume Laterality Blood specimen 07/27/2017 12:53 8 (specimen) AM EST 12:58 AM EST Resulting Agency Comment Spec In Lab Angela Swenson MD BLOOD BANK ORDERABLES Performing Organization Address [facility] [place] [address] (ABNORMAL) Prothrombin Time (07/27/2017 12:53 AM EST) P athologist Signature PT 19.1 (H) 11.8 - 14.0 [facility] [...] Swenson MD HEMATOLOGY ORDERABLES Performing Organization Address [facility] [place] [address] (ABNORMAL) Basic Metabolic Panel (non-fasting) (07/27/2017 12:53 AM EST) P athologist Signature Glucose Lvl 95 65 - 199 [facility] mg/dL [facility] Comment: Diabetes: >=200 mg/dL plus symp toms BUN 37 (H) 10 - 20 mg/dL [facility] Creatinine 1.49 0.80 - 1.50 mg/dL [facility] Sodium 137 135 - 145 mmol/L [facility] Potassium 5.1 (H) 3.5 - 5.0 mmol/L [facility] [...] 15 mmol/L [facility] Calcium 8.6 8.5 - 10.5 mg/dL [facility] Estimated GFR 46 (L) >=60 [facility] Comment: The reported eGFR should be multiplied b y 1.2 for patients. The MDRD is not an appropriate measure o f renal function for patients with body mass extremes or in patients with acute kidney failure. 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 Right foot pain Pain in limb ASHD (arteriosclerotic heart disease) Coronary atherosclerosis of unspecified type of vessel, [place] or graft Cardiomyopathy, ischemic Other specified forms [...] 81 mg 1014 (Gi keke - Provider: Zulam Arndt RN) 81 mg, Oral, EVERY OTHER [...] tablet 20 mg 1014 (Given - Provider: Zumla Arndt RN) 20 mg, Oral, DAILY, First dose on 09/12 at 0900, Until Discontinued, Routine HYDROmorphone (DILAUDID) injection 0.5 mg (COMPLETED) 0054 (Given - Provider: Carmen Knowles RN) 0.5 mg, Intravenous, ONCE, 1 dose, Wed07/27/17 at 0043, STAT HYDROmorphone (DILAUDID) injection 1 mg (COMPLETED) 0149 (Given - Provider: Jazmín rPoctor RN) 1 mg, Intravenous, ONCE, 1 dose, [...] documented in this encounter Care Teams Machine Heel Seat Fitter Relationship Specialty Start Date End Date Lovely Vicente MD PCP - General 04/16/[address] [facility] [address] [place] [address] documented as of this encounter
--- OUTSIDE RECORDS SUMMARY | 2022-03-06 08:12 | XMS_ITS | Encounter Summary ---
:1945 [place] [address] Care Team Providers Name Role Phone Lovely Vicente MD Primary Care Provider Encounter Details Date Type Department Care Team Description 07/16/2017 Telephone Endocrinology at [facility] C Manuela Holliday, [facility] [place] [address] ENDOCRINOLOGY DEPT [phone] [place], [place] [address] (Wo rk) Social History Tobacco [...] MD [facility] [address] [place], [place] [address] ([facility]) 06/10/2022 Office Visit Dermatology Laura Scherer MD [facility] [address] [place], [place] [address] (Wo ) documented as of this encounter Visit Diagnoses Not on filedocumented in this encounter Care Teams Industrial Pharmacist Relationship Specialty Start Date End Date Lovely Vicente MD PCP - General 04/16/[address] [place] [address] documented as of this encounter
--- OUTSIDE RECORDS SUMMARY | 2022-03-06 08:12 | XMS_ITS | Encounter Summary ---
:1945 Author Organization [facility] [place] [address] Care Team Providers Name Role Phone Lovely Vicente MD Primary Care Provider Encounter Details Date Type Department Care Team Description 07/24/2017 Telephone Vascular Surgery Melba [facility] [place] [address] [facility] [phone] VASCULAR SURGERY [place], [place] [address] (Wo rk) Social History Tobacco [...] on Coumadin. ??He [facility] [place] [facility] [place] with mottled toes on the [...] Visit Cardiology Vitaliy Nobles MD [facility] [address] [place], [place] [address] (Wo rk) 06/10/2022 Office Visit Dermatology Laura Scherer MD [facility] [address] [facility] [place] [place] [address] (Wo rk) documented as of this encounter Visit Diagnoses Not on filedocumented in this encounter Care Teams Foundry Superintendant Relationship Specialty Start Date End Date Lovely Vicente MD PCP - General 04/16/[address] [place] [address] (work) documented as of this encounter
--- OUTSIDE RECORDS SUMMARY | 2022-03-06 08:13 | XMS_ITS | Encounter Summary ---
:1945 Author Organization [facility] [place] [address] Care Team Providers Name Role Phone Lovely Vicente MD Primary Care Provider Reason for Referral Consultation (Routine) - Closed Specialty Diagnoses / Referred By Contact Referred To Contact Procedures Cardiac Rehabilitation Diagnoses S/P CABG x 3 Yuan Webber, Cardiac Rehab, [address] [place] CARDIOTHORACIC [address] [place] [address] Referral ID Status Reason Start Date Expiration Date Visits V isits Requested Authorized [id number] Closed Consult, 07/14/2017 01/10/2018 36 36 Test & Treat Reason for Visit Auth/Cert Specialty Diagnoses / Procedures Referred By Contact Refer red To Contact Diagnoses STEMI (ST elevation myocardial infarction) NSTEMI STEMI Procedures CARDIAC CATHETERIZATION NAYE IPI Referral ID Status Reason Start Date Expiration Date Visits Requ ested Visits Authorized [id number] 1 1 Encounter Details Date Type Department Care Team Description 07/05/2017 - Hospital Encounter Cardiac Special Daphne Shahid MD [facility] [place] [address] Non-ST elevation myocardial infarction ( NSTEMI); 07/14/2017 Care Unit Yuan Preciado MD [facility] [place] [address] S/P CABG x 3 [place] [id number] Social History Tobacco Use Types Packs/Day Years [...] Patient Age: 72 y.o. Birthdate: 1945 Language: Uzbek Race: White Ethnicity: Not nor Admit Date: [...] , @ 1:20p Patient to follow-up with Nail Polish Brush Machine Feeder/heart failure team in one week. An appointment will be made for you. You may call [phone] Patient to follow-up with Cardiac Surgery, Dr. Yuan Webber, in ~ 4 weeks with CXR, EKG. Inpatient Provider Contact Information: [facility] Section of Cardiac Surgery [facility] [address] FAX [phone] Discharge Diagnoses (Hospital Problems) Primary Diagnoses: CAD [...] 33.75) performed by Yuan Webber MD at [facility] MAIN OR ??? PRO CABG, ARTERY-VEIN, TWO N/A 07/07/2017 @CABG, TWO VENOUS GRAFTS & ARTERIAL GRAFT (WRVU 7.93) performed by Yuan Webber MD at [facility] MAIN OR ??? PRO COLONOSCOPY, REMV LESN, SNARE 01/16/2014 COLONOSCOPY, POLYPECTOMY, REMOVAL LESION BY SNARE performed by Nohemi Jaimes MD at [facility] ENDOSCOPY ??? PRO ENDOSCOPY W/VIDEO-ASST VEIN HARVEST, CABG Right 07/07/2017 ENDOSCOPIC HARVEST VEIN(S) FOR CABG (WRVU 0.31) performed by Yuan Webber MD at [facility] MAIN OR ??? PRO THYROIDECTOMY 03/28/2013 THYROIDECTOMY, TOTAL OR COMPLETE performed by Manny Mcknight MD at [facility] MAIN OR Prior To Admission Medications Prescriptions Prior to Admission Medication Sig Dispense Refill Last Dose ??? levothyroxine (SYNTHROID) 175 mcg Tablet Take 1 tablet by mouth daily. 90 tablet 3 07/05/2017 [id number] ??? ascorbic acid, vitamin C, (VITAMIN C) [...] Hospital Course: Gregory Hoang was admitted to [facility] on 07/05/2017 via the Cardiology Service. 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 An IABP was [...] not take or discontinue any prescription or smwf-gzh-rchofbi medications without asking your doctor or pharmacist [...] Yuan Webber and/or the Cardiac Surgery Physician Manager Economic Team may be reached at . Weight: [...] Dr. Yuan Webber. You may use a Box Track or treadmill but avoid any pulling [...] friends, go to a movie, go to holiness, etc. Heavy activities: No hunting, skiing, jogging, snow shoveling, snowmobiling, lawn mowing, swimming, golf or tennis until after your return appointment with the surgeon. Do not ride motorcycles, [employer]'s tractors or horses. Avoid the use [...] should resume a low fat, low cholesterol, [place] Heart Association Diet/Diabetic diet. Driving: No driving [...] , @ 1:20p Patient to follow-up with Nail Polish Brush Machine Feeder/heart failure team in one week. Appointment will be made for you. You may call [phone] Patient to follow-up with Cardiac Surgery, Dr. Yuan Webber, in ~ 4 weeks with CXR, EKG. Cardiac Rehabilitation: Gregory Hoang was seen today regarding participation in the outpatient Phase 2 Cardiac Rehabilitation at [facility]. The patient agrees to a referral to this program. The referral will be sent at discharge and the patient should be contacted by the Program within 1- 2 weeks from discharge. ?? Future Appointments and Orders Future Appointments Provider Department Dept Phone 09/07/2017 3:00 PM LAB, THREE L Lab 3L [facility] [phone] 09/07/2017 4:00 PM Luz Prescott MD Endocrinology at [place] [phone] Future Orders Complete By Expires EKG 12 Lead [EKG1 Custom] 08/14/2017 02/13/2018 Process Instructions: Scheduling Instructions: Questions: Which location will this be performed?: [facility] Is a rhythm strip needed?: No If EKG Reason is Pre-op Evaluation, indicate diagnosis for surgery.: XR Chest PA & Lateral (Generic) [[id number] Custom] 08/14/2017 02/13/2018 Process Instructions: Scheduling Instructions: Questions: Where will study be performed?: [facility] Portable exam?: Reason for exam and clinical history: CABG x 3 Other pertinent information: Stat read required?: Date of injury if applicable: Requested Time: Referral to Cardiac Rehab [WNF908 Custom] As directed Process Instructions: If no progress note charted, please enter Clinical details in comments. Scheduling Instructions: Questions: My question or request is: s/p CABG. 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 Please draw INR if indicated and send result to:Dr Vicente [phone] PT ORDERS: Continue rehab for endurance, gait stability and strength with mobility and transfers. Home safety evaluation. Home exercise program if appropriate. Start of Care Date:24-48 hours after discharge SPECIAL INSTRUCTIONS: For any follow up questions, needs, or issues please call the Cardiac Surgery Office at [phone] FOR MEDICARE ONLY: (please delete this section [...] AFTER 07/17/2017 Signed: Martha Teague APRN [facility] Section of Cardiac Surgery [facility] [address] FAX [phone] Date: 07/14/2017 CC: MD Ivania Cr Betsy, [place] [address] [place] [phone] documented in this encounter Discharge Instructions Discharge [...] not take or discontinue any prescription or emkg-vnr-yexksvf medications without asking your doctor or pharmacist [...] juice or regular (not diet) soda 6 [employer] small box of raisins 4 glucose tablets [...] Yuan Webber and/or the Cardiac Surgery Physician Manager Economic Team may be reached at . ?? [...] Dr. Yuan Webber. You may use a Box Track or treadmill but avoid any pulling [...] friends, go to a movie, go to holiness, etc. ?? Heavy activities: No hunting, skiing, jogging, snow shoveling, snowmobiling, lawn mowing, swimming, golf or tennis until after your return appointment with the surgeon. Do not ride motorcycles, [employer] tractors or horses. Avoid the use of [...] should resume a low fat, low cholesterol, [place] Heart Association Diet/Diabetic diet. ?? Driving: No [...] @ 1:20p ?? Patient to follow-up with Nail Polish Brush Machine Feeder/heart failure team in one week. An appointment has been made for you, you can call [phone] ?? Patient to follow-up with Cardiac Surgery, Dr. Yuan Webber, in ~ 4 weeks with CXR, EKG. ? Cardiac Rehabilitation: Gregory Hoang??was seen today regarding participation in the outpatient Phase 2 Cardiac Rehabilitation at [facility]. ?? The patient agrees to a referral to this program.? The referral will be sent at discharge and the patient should be contacted by the Program within 1- 2 weeks from discharge. ? Future Appointments and Orders Future Appointments Provider Department Dept Phone ?? 09/07/2017 3:00 PM LAB, THREE L Lab 3L [facility] [phone] ?? 09/07/2017 4:00 PM Luz Prescott MD Endocrinology at [place] [phone] Future Orders Complete By Expires ?? EKG 12 Lead [EKG1 Custom] 08/14/2017 02/13/2018 ?? Process Instructions: ? Scheduling Instructions: ? Questions: ? Which location will this be performed?: [place] ?? Is a rhythm strip needed?: No ?? If EKG Reason is Pre-op Evaluation, indicate diagnosis for surgery.: ?? XR Chest PA & Lateral (Generic) [[id number] Custom] 08/14/2017 02/13/2018 ?? Process Instructions: ? Scheduling Instructions: ? Questions: ? Where will study be performed?: [facility] ?? Portable exam?: ?? Reason for exam and clinical history: CABG x 3 ?? Other pertinent information: ?? Stat read required?: ?? Date of injury if applicable: ?? Requested Time: ?? Referral to Cardiac Rehab [SFX947 Custom] As directed ? Process Instructions: ?? If no progress note charted, please enter Clinical details in comments. ?? Scheduling Instructions: ? Questions: ? My question or request is: s/p CABG. Cardiac rehab at [facility] ? Arrangements for VNA/home care: As [...] RN - 07/14/2017 2:34 PM EST The patient/guest service representative has been provided a list of Home Health Agencies/DME vendors which serve their preferred geographic area. A letter describing our affiliations was reviewed with them and theywere educated about their right to choose where referrals are placed. Patient requests referral to [facility] PHONE: [phone] FAX: [phone] Expected date of discharge: 07/14 Referral routed to the Coke Crane Operator for matching with agency/vendor and to [...] [facility] End[facility] Diabetes Management Pager [phone] minutes of this 35 minute visit was spent with the patient in counseling on diabetes and treatment plan, reviewing all glucose and insulin data as well as relevant laboratory results with the patient, and coordination of care on the inpatient unit including nursing and primary team. Zulma Andres, RN - 07/14/2017 10:30 AM EST The patient/guest service representative has been provided a list of Home Health Agencies/DME vendors which serve their preferred geographic area. A letter describing our affiliations was reviewed with them and theywere educated about their right to choose where referrals are placed. Patient requests referral to : Yasmani Munguia ([facility] [place] [facility]-is in [place] PHONE: [phone] FAX: [phone]. Expected date of discharge: 07/14/17 Referral routed to the Coke Crane Operator for matching with agency/vendor and to [...] hours. If BG remains greater than 240, lywydf91 units (no more than three times) &??call [...] [facility] Diabetes Management Pager [phone] minutes of this 25 minute visit [...] of infiltration/extravasation Discussed plan of care with GEOSPATIAL IMAGE ANALYST and RN. Elevate exrtemity and apply [...] measuring tape and identifier in the photo) FLAG SIGNALER CARING FOR THIS PATIENT WILL CONTINUE TO [...] measuring tape and identifier in the photo) FLAG SIGNALER CARING FOR THIS PATIENT WILL CONTINUE TO [...] regard to both infiltrates addressed by this flex o writer operator.All of Mr. Hoang's responses were entirely appropriate. Images of infiltrates attached here. Martha Sharp APRN - 07/13/2017 8:01 AM EST Cardiac Surgery Progress Note: ID: [id number] 72 year old male POD#6 s/p CABGx3 [...] discharge. ?? I have met with the patient/guest service representative to discuss discharge planning needs. I have provided the [facility], Office of Care Management letter from the Restaurant Host pertaining to rehab referrals. I have also provided a letter describing our affiliations within the [facility] and educated them about their right to choose where referrals are placed. ?? I reviewed the different levels of rehab including SNF, swing, acute and LTAC with the patient/guest service representative. ?? The patient/guest service representative has been provided a list of facilities within their preferred geographic area. ?? I have requested that the patient/guest service representative provide at least three choices for referral. ?? The patient/guest service representative have requested referrals to: ?? 1. . ?? 2. [facility] ?? 3. More to be entered ?? Expected date of discharge: 07/14 Note routed to Coke Crane Operator who will communicate referrals to facilities [...] hours. If BG remains greater than 240, [id number] units (no more than three times) & [...] hours. If BG remains greater than 240, hnuvqa23 units (no more than three times) & call for new basal insulin orders. ??If less than 240 after two hours, give no insulin and resume prior schedule. Will continue to follow Katerin Patel. STACIE Azul [facility] Endocrinology Diabetes Management Pager [phone] 20 minutes of this 35 minute visit was spent with the patient in counseling on diabetes and treatment plan, reviewing all glucose and insulin data as well as relevant laboratory results with the patient, and coordination of care on the inpatient unit including nursing and primary team. Makayla Stevenson APRN - 07/12/2017 9:52 AM EST Cardiac Surgery Progress Note: ID: [id number] 72 year old male POD#5 s/p CABGx3 [...] PM EST Patient arrived from [facility]. VSS. MSI dressing pulled off with [...] AM EST Cardiac Surgery Progress Note: ID: [id number] 72 year old male POD#4 s/p CABGx3 [...] hours. If BG remains greater than 240, ulsnfa31 units (no more than three times) & [...] AM EST Cardiac Surgery Progress Note: ID: [id number] 72 year old male POD#3 s/p CABGx3 [...] Gas) No results found for: PHART, PO2ART, WZN8HNE Assessment/Plan: 72 year old male POD#3 s/p [...] Encounter Note Patient Name: Gregory Hoang : [id number] MR#: [id number] Admit Date: 07/05/2017 4:20 PM Hospital Day 4 days Narrative: Patient was sitting in chair, hugging heart pillow, opened his eyes, nodding to come into room Assessment: Patient was sleepy. Intervention and Outcome: Introduced ems helicopter pilot services and patient reached his hand out in appreciation. Follow-up: Sustainability Project Coordinator remains available for support. Time in [...] 10:45 AM EST Report given to staff design engineer to cover care Maddison Cee PA - 07/09/2017 9:00 AM EST Cardiac Surgery Progress Note: ID: [id number] 72 year old male POD#2 s/p CABGx3 [...] Attending Surgeon on rounds. Signed: STEPHANIE Iqbal [facility] Section of Cardiac Surgery Date: 07/09/2017 Magnolia Santiago [facility] - 07/09/2017 1:33 AM EST [...] when IABP d/c'ed. Gretchen Carolina, PT Pager [phone] Maddison Cee PA - 07/08/2017 11:27 AM EST Cardiac Surgery Progress Note: ID: [id number] 72 year old male POD#1 s/p CABGx3 [...] Attending Surgeon on rounds. Signed: STEPHANIE Iqbal [facility] Section of Cardiac Surgery Date: 07/08/2017 Nick [...] unit. NICK SEGAL MD 07/08/2017 Jay Munoz [facility] - 07/08/2017 4:33 AM EST [...] in place in R femoral. No hematoma. PUTTYING AND CALKING SUPERVISOR- Intact Psych- Anxious Skin- Dry, no peripheral [...] intact. IABP in place in R femoral. PUTTYING AND CALKING SUPERVISOR- Intact Psych- Anxious Skin- Dry, no peripheral [...] Ramírez MD, PGY-1 Cardiology S1 (pgr. [phone]) . CARDIOLOGY ATTENDING NOTE Patient: Gregory Hoang [...] note for details. DAPHNE SHAHID MD Pager [phone] Jet Mckenna MD - 07/05/2017 6:48 PM EST Preliminary Cardiac Catheterization Procedure Note: Procedure(s) performed: Left heart cath, IABP insertion Access: Right INK GRINDER-->8fr IABP A time-out was conducted prior to [...] Heparin gtt maintained. 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 documented in this encounter H&P Notes Daphne Shahid MD - 07/05/2017 6:08 PM EST CARDIOLOGY HISTORY & PHYSICAL EXAM Date of Admission: 07/05/2017 ( Hospital Day 0 days ) Responsible Attending: Daphne Shahid MD PCP: Lovely Vicente MD PCP#: [phone] Patient Active Problem List Diagnosis Code ??? [...] significant valvular disease. 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 [facility] Labs: INR 1.0 WBC 5.88 Hgb [...] I/O - s/p lasix in the laborer shellfish processing, redose to aim net neg 1L by [...] - ISS - hold metformin - f/u [facility] #Home Meds - continue levothyroxine 175mcg - CPAP at night # Routine - DVT PPx: heparin drip - Diet: NPO - Code Status: FULL - Dispo: [facility] Cedric Bey MD Internal Medicine, PGY-2 Cardiology S1, Team Pager # [phone] CARDIOLOGY ATTENDING NOTE Patient: Gregory Hoang Date [...] amenable for PCI. DAPHNE SHAHID MD Pager [phone] documented in this encounter Miscellaneous Notes Consult Note - Daphne Shahid MD - 07/14/2017 11:46 AM EST Heart Failure Service Inpatient Consult Note Gregory Hoang Date of : 1945 Age: 72 y.o. Today's date: 07/14/17 PCP: Lovely Vicente MD ONCOLOGY REP SPECIALIST: None Place of Service: [facility] Reason for Consult: Dr. Webber [...] 33.75) performed by Yuan Webber MD at [facility] MAIN OR ??? PRO CABG, ARTERY-VEIN, TWO N/A 07/07/2017 @CABG, TWO VENOUS GRAFTS & ARTERIAL GRAFT (WRVU 7.93) performed by Yuan Webber MD at [facility] MAIN OR ??? PRO COLONOSCOPY, REMV LESN, SNARE 01/16/2014 COLONOSCOPY, POLYPECTOMY, REMOVAL LESION BY SNARE performed by Nohemi Jaimes MD at [facility] ENDOSCOPY ??? PRO ENDOSCOPY W/VIDEO-ASST VEIN HARVEST, CABG Right 07/07/2017 ENDOSCOPIC HARVEST VEIN(S) FOR CABG (WRVU 0.31) performed by Yuan Webber MD at [facility] MAIN OR ??? PRO THYROIDECTOMY 03/28/2013 THYROIDECTOMY, TOTAL OR COMPLETE performed by Manny Mcknight MD at [facility] MAIN OR Outpt Meds: Current Outpatient [...] following studies: EKG 07/14/17: NSR 75 bpm, [facility] DIRECTOR anterior infarct, LAD CXR 07/11/17: FINDINGS: Sternotomy wires. The patient has been extubated, left chest tube removed, and Alverda-Suzi catheter removed since the 07/07/2017 study. Atelectasis [...] was discussed with Zehra. Jaden Kelley MD Boning Room Worker Pager [phone] CARDIOLOGY ATTENDING NOTE Patient: Gregory Hoang Date [...] heart failure clinic. DAPHNE SHAHID MD Pager [phone] Plan of Care - Alden Chavarria, CASTING MACHINE OPERATOR HELPER - 07/14/2017 11:35 AM EST Problem: [...] Discharge Disposition: home with assist Alden Chavarria, CASTING MACHINE OPERATOR HELPER Pager: [phone] Inpatient Physical Therapy Problem: Acute Rehab Services [...] sit/sit to supine -- Bed Mobility Goal, [place] Level supervision required -- Bed Mobility Goal, [...] - 3 days -- Gait Training Goal, [place] Level supervision required -- Gait Training Goal, [...] days -- Transfer Training Goal, Activity Type ewc-cw-wvlrd/opvai-yb-uqa;oef-rf-sqsyv/jeoyi-ri-xve;toilet -- Transfer Train Goal, [place] Level supervision required -- Transfer Training Goal, [...] keeping present for 2 days per family. Foundry Laborer Coreroom noted of frustrations, house keeping sent to room. Patient offered showered twice, refused. at bedside, frustrated that shower not complete, informed that patient had refused several times. requesting to see STORE SHOPPER, paged sent to Martha, will come to bedside (middle of consult). not willing to wait, Martha notified that family had gone home. Encouraged to come for morning rounds a t 8am. Diabetes team at bedside - insulin adjustments made. Call cabello in reach. Continue to monitor. PLAN MOVING FORWARD: Ambulate, dressing changes BID, Please change drsg at 4am per Martha STORE SHOPPER request. INDIVIDUALIZED FALL PREVENTION INTERVENTIONS: Patient-specific fall [...] levels on the lower side, 60ml of [place] juice given after a FS of 80. [...] Conf 07/13/17 0502 Interdisciplinary Rounds/Family Conf Participants onsite case manager;dietitian/nutrition services;nursing;occupational therapy;patient;pharmacy;physical therapy;physician Plan of [...] Anticipated Discharge Disposition: home with assist Pager: [phone] CLARISSA SEGAL, PT 07/12/2017 Physical Therapy Rehabilitation [...] to sit/sit to supine Bed Mobility Goal, [place] Level supervision required Bed Mobility Goal, Additional Goal adheres to psternal precautions for transfer Goal: Gait Training Goal Stand Alone Therapy Goal Outcome: Ongoing (Interventions Implemented as Appropriate) 07/12/17 1225 Gait Training Goal Gait Training Goal, Date Established 07/12/17 Gait Training Goal, Time to Achieve 2 - 3 days Gait Training Goal, [place] Level supervision required Gait Training Goal, Assist [...] 3 days Transfer Training Goal, Activity Type hgb-mw-ealzp/nkcka-ry-cmv;wrp-gk-qriuq/gpxcv-ud-obs;toilet Transfer Train Goal, [place] Level supervision required Transfer Training Goal, Additional Goal adheres to sternal precautions during transfer Consult Note - Octavia Vaughn RN - 07/12/2017 10:50 AM EST [facility] CARDIAC REHABILITATION Gregory Hoang was seen today regarding participation in the outpatient Phase 2 Cardiac Rehabilitation at [facility]. The patient agrees to a referral [...] IV site, amio to other piv and HEALTH COACH at bedside to help assess, IV [...] Outcome: Ongoing (Interventions Implemented as Appropriate) 07/11/17199907/11/17200907/12/17 [facility] Daily Care Interventions Self-Care Promotion [...] staff, he stood and marched in place. [place] weak, wanting to sit back down. Remained [...] Outcome: Ongoing (Interventions Implemented as Appropriate) 07/05/17 4308 Mutuality/Individual Preferences What Anxieties, Fears or Concerns [...] Health/Prescription Coverage: Primary Insurance: MEDICARE Secondary Insurance: [place] Prescription Coverage: yes Preferred Pharmacy: [facility] [place] Other: none Primary Care Provider: Lovely Vicente MD [phone] Patient/Caregiver Goals of Treatment:live and get my breath back Potential Needs for Transition of Care: Rehab[facility]SNF: [facility]; [facility] Home Health: NA DME: TBD Dialysis: na Community Resources: available Transportation: yes Other: none Anticipated Barriers to Discharge/Special Considerations: none Plan: Likely SNF Rehab before home A member of the Care Management team will continue to monitor progress, follow for continuity of care and assist with transition of care planning. ERLIN Weiss Pager: [phone] Consult Note - Katerin Azul RN - [...] management and to provide a [facility] of [facility] care. Diabetes History: Gregory Hoang has [...] patient W/E coverage, Dr. Jeane Tatum, pager [phone] Katerin Patel. STACIE Azul Endocrinology Diabetes Management Pager [phone] Plan of Care - Stephanie Godoy RN [...] Operative Note Patient Name: Gregory Hoang : [id number] MR#: [id number] Case Date: 07/07/2017 Surgeon: Surgeon(s) and Role: * Yuan Webber MD - Primary * Michael Drake PA - Physician Manager Economic * Linda Flores PA - Physician Manager Economic Preoperative diagnosis: 3VD Postoperative diagnosis: CAD, severe [...] Operative Note Patient Name: Gregory Hoang : [id number] MR#: [id number] Case Date: 07/07/2017 Surgeon: Surgeon(s) and Role: * Yuan Webber MD - Primary * Michael Drake PA - Physician Manager Economic * Linda Flores PA - Physician Manager Economic Preoperative diagnosis: 3VD Postoperative diagnosis: CAD, severe [...] Full Code Katty Jovani, MS3 [facility] Cardiology S1 (Pager [phone]) Plan of Care - Emelia Ibarra RN [...] MD at [facility] ENDOSCOPY ??? 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 Lasix given in laborer shellfish processing, 1.4 L out at this time. Pt [...] MD [facility] CARDIOLOGY [place], [place] [address] ( lissa) 06/10/2022 Office Visit Dermatology Laura Scherer MD [facility] [address] [facility] [facility] [place], [place] [address] (Wo lissa) Scheduled Orders Name [...] procedure are i n the results section. 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 (07/15/2017 12:00 AM EST) Narrative 07/15/2017 [...] Signature POC Glucose 186 65 - 199 [facility] mg[facility]dL [facility] - [...] Organization Address City/State/[place] [address] POCT Glucose (07/14/2017 7:52 AM EST) athologist Signature POC Glucose 126 65 - 199 [facility] [...] Organization Address City/State/[place] [address] (ABNORMAL) Prothrombin Time (07/14/2017 [...] Wilson APRN HEMATOLOGY ORDERABLES Performing Organization Address City/[facility]/[place] [address] Potassium (07/14/2017 4:46 AM EST) athologist Signature Potassium 4.3 3.5 - 5.0 [facility] mmol/L [facility] LABORATORY Comment: Please note: ??Patients with WBC [...] Wilson APRN CHEMISTRY ORDERABLES Performing Organization Address City/[facility]/[place] [address] POCT Glucose (07/14/2017 4:34 AM EST) athologist Signature POC Glucose 115 65 - 199 [facility] mg/dL [facility] LABORATORY Comment: Supplemental ranges: <140 mg/dL before meals <180 mg/dL all other times of the day Specimen Anatomical Collection Method Collection Time Receive d Time (Source) Location / / Volume Laterality Blood specimen 07/14/2017 4:34 AM 017 4:34 (specimen) EST AM EST Yuan Webber MD POINT OF CARE TEST ORDERABLE S Performing Organization Address City/[facility]/ZIP Code Phon e Number [address] POCT Glucose (07/13/2017 11:33 PM EST) athologist Signature POC Glucose 132 65 - 199 [facility] mg/dL [facility] [...] Organization Address City/State/[place] [address] POCT Glucose (07/13/2017 9:25 PM EST) athologist Signature POC Glucose 121 65 - 199 [place] mg/dL [facility] - [...] Organization Address City/State/[place] [address] POCT Glucose (07/13/2017 4:55 PM EST) athologist Signature POC Glucose 79 65 - 199 [place] mg/dL [facility] - [...] Organization Address City/State/[place] [address] POCT Glucose (07/13/2017 11:16 AM EST) athologist Signature POC Glucose 163 65 - 199 [facility] mg/dL [facility] [...] Organization Address City/State/[place] [address] POCT Glucose (07/13/2017 8:07 AM EST) athologist Signature POC Glucose 96 65 - 199 [facility] mg/dL [facility] LABORATORY Comment: Supplemental ranges: <140 mg/dL before meals <180 mg/dL all other times of the day Specimen Anatomical Collection Method Collection Time Receive d Time (Source) Location / / Volume Laterality Blood specimen 07/13/2017 8:07 AM 017 8:07 (specimen) EST AM EST Yuan Webber MD POINT OF CARE TEST ORDERABLE S Performing Organization Address City/[facility]/[place] [address] (ABNORMAL) Prothrombin Time (07/13/2017 [...] Organization Address City/State/[place] [address] (ABNORMAL) Basic Metabolic Panel (non-fasting) (07/13/2017 4:26 AM EST) athologist Signature Glucose Lvl 95 65 - 199 [facility] mg/dL [facility] LABORATORY Comment: Diabetes: >=200 mg/dL plus symp toms BUN 25 (H) 10 - 20 mg/dL [facility] LABORATORY Creatinine 1.19 0.80 - 1.50 mg/dL [facility] LABORATORY Sodium 143 135 - 145 mmol/L [facility] LABORATORY Potassium 3.7 3.5 - 5.0 mmol/L [facility] [...] Calcium 7.7 (L) 8.5 - 10.5 mg/dL [facility] LABORATORY Estimated GFR 60 >=60 [facility] LABORATORY Comment: The reported eGFR should be multiplied b y 1.2 for patients. The MDRD is not an appropriate measure o f renal function for patients with body mass extremes or in patients with acute kidney failure. http://Brux[employer].BlaBlaCar/DHnkdep http://[employer]/DHMCnkf Specimen Anatomical Collection Method Collection Time Receive d Time (Source) Location / / Volume Laterality Blood specimen 07/13/2017 4:26 AM 017 4:46 (specimen) EST AM EST Resulting Agency Comment Spec In Lab Makayla Wilson APRN CHEMISTRY ORDERABLES Performing Organization Address City/State/[place] [address] POCT Glucose (07/13/2017 3:52 AM EST) athologist Signature POC Glucose 93 65 - 199 [facility] mg/dL [facility] [...] Organization Address City/State/[place] [address] POCT Glucose (07/13/2017 12:21 AM EST) athologist Signature POC Glucose 80 65 - 199 [place] mg/dL [facility] - [...] Address City/State/ZIP Code Phon e Number [address] POCT Glucose (07/12/2017 8:22 PM EST) athologist Signature POC Glucose 119 65 - 199 [place] mg/dL [facility] - [...] Address City/State/ZIP Code Phon e Number [address] POCT Glucose (07/12/2017 4:02 PM EST) athologist Signature POC Glucose 114 65 - 199 [facility] mg/dL [facility] [...] Organization Address City/State/[place] [address] POCT Glucose (07/12/2017 11:28 AM EST) athologist Signature POC Glucose 164 65 - 199 [place] mg/dL [facility] - [...] Organization Address City/State/[place] [address] POCT Glucose (07/12/2017 7:34 AM EST) athologist Signature POC Glucose 109 65 - 199 [place] mg/dL [facility] - [...] Organization Address City/State/[place] [address] (ABNORMAL) Basic Metabolic Panel (non-fasting) (07/12/2017 4:11 AM EST) athologist Signature Glucose Lvl 92 65 - 199 [place] mg/dL [facility] LABORATORY Comment: Diabetes: >=200 mg/dL plus symp toms BUN 31 (H) 10 - 20 mg/dL [facility] LABORATORY Creatinine 1.23 0.80 - 1.50 mg/dL [facility] LABORATORY Sodium 145 135 - 145 mmol/L [facility] LABORATORY Potassium Not Perf 3.5 - 5.0 mmol/L [facility] LABORATORY Comment: Duplicate order Please [...] [facility] LABORATORY Estimated GFR 58 (L) >=60 [facility] LABORATORY Comment: The reported eGFR should be multiplied b y 1.2 for patients. The MDRD is not an appropriate measure o f renal function for patients with body mass extremes or in patients with acute kidney failure. http://Bruxie.BlaBlaCar/DHnkdep http://[employer]/DHMCnkf Specimen Anatomical Collection Method Collection Time Receive d Time (Source) Location / / Volume Laterality Blood specimen 07/12/2017 4:11 AM 017 8:57 (specimen) EST AM EST Resulting Agency Comment Spec In Lab Makayla Wilson APRN CHEMISTRY ORDERABLES Performing Organization Address City/State/[place] [address] (ABNORMAL) Prothrombin Time (07/12/2017 [...] Wilson STACIE HEMATOLOGY ORDERABLES Performing Organization Address City/[facility]/ZIP Code Phon e Number [address] Potassium (07/12/2017 4:11 AM EST) athologist Signature Potassium 3.8 3.5 - 5.0 [facility] mmol/L [facility] LABORATORY Comment: Please note: ??Patients with WBC [...] Wilson STACIE CHEMISTRY ORDERABLES Performing Organization Address City/[facility]/[place] [address] POCT Glucose (07/12/2017 4:10 AM EST) athologist Signature POC Glucose 90 65 - 199 [facility] mg/dL [facility] [...] Organization Address City/State/[place] [address] POCT Glucose (07/11/2017 11:57 PM EST) athologist Signature POC Glucose 98 65 - 199 [facility] mg/dL [facility] LABORATORY Comment: Supplemental ranges: <140 mg/dL before meals <180 mg/dL all other times of the day Specimen Anatomical Collection Method Collection Time Receive d Time (Source) Location / / Volume Laterality Blood specimen 07/11/2017 11:57 7 (specimen) PM EST 11:57 PM EST Yuan Webber MD POINT OF CARE TEST ORDERABLE S Performing Organization Address City/[facility]/[place] [address] POCT Glucose (07/11/2017 8:32 PM EST) athologist Signature POC Glucose 146 65 - 199 [facility] mg/dL [facility] [...] Organization Address City/State/[place] [address] XR Chest PA & [...] e xtubated, left chest tube removed, and Alverda-Suzi catheter removed since the study. Atelectasis at [...] e xtubated, left chest tube removed, and Alverda-Suzi catheter removed since the study. Atelectasis at [...] POC Glucose 223 (H) 65 - 199 [facility] mg/dL [facility] - [...] Address City/State/[place] [address] POCT Glucose (07/11/2017 11:55 AM EST) athologist Signature POC Glucose 176 65 - 199 [facility] mg/dL [facility] - [...] Organization Address City/State/[place] [address] POCT Glucose (07/11/2017 7:53 AM EST) athologist Signature POC Glucose 189 65 - 199 [place] mg/dL [facility] - [...] Organization Address City/State/[place] [address] POCT Glucose (07/11/2017 4:22 AM EST) athologist Signature POC Glucose 151 65 - 199 [place] mg/dL [facility] - [...] Address City/State/ZIP Code Phon e Number [address] Potassium (07/11/2017 2:20 AM EST) athologist Signature Potassium 4.5 3.5 - 5.0 [facility] mmol/L [facility] LABORATORY Comment: Please note: ??Patients with WBC [...] Address City/State/ZIP Code Phon e Number [address] POCT Glucose (07/11/2017 12:17 AM EST) athologist Signature POC Glucose 162 65 - 199 [facility] mg/dL [facility] LABORATORY Comment: Supplemental ranges: <140 mg/dL before meals <180 mg/dL all other times of the day Specimen Anatomical Collection Method Collection Time Receive d Time (Source) Location / / Volume Laterality Blood specimen 07/11/2017 12:17 7 (specimen) AM EST 12:17 AM EST Yuan Webber MD POINT OF CARE TEST ORDERABLE S Performing Organization Address City/[facility]/ZIP Code Phon e Number [address] POCT Glucose (07/10/2017 8:47 PM EST) athologist Signature POC Glucose 191 65 - 199 [facility] mg/dL [facility] LABORATORY Comment: Supplemental ranges: <140 mg/dL before meals <180 mg/dL all other times of the day Specimen Anatomical Collection Method Collection Time Receive d Time (Source) Location / / Volume Laterality Blood specimen 07/10/2017 8:47 PM 017 8:47 (specimen) EST PM EST Yuan Webber MD POINT OF CARE TEST ORDERABLE S Performing Organization Address City/[facility]/ZIP [facility] Phon e Number [address] POCT Glucose (07/10/2017 4:06 PM EST) athologist Signature POC Glucose 131 65 - 199 [place] mg/dL [facility] - [...] Address City/State/ZIP Code Phon e Number [address] POCT Glucose (07/10/2017 3:08 PM EST) athologist Signature POC Glucose 151 65 - 199 [place] [facility] mg/dL [facility] - [...] Address City/State/ZIP Code Phon e Number [address] POCT Glucose (07/10/2017 2:25 PM EST) athologist Signature POC Glucose 146 65 - 199 [place] mg/dL [facility] - [...] Address City/State/ZIP Code Phon e Number [address] POCT Glucose (07/10/2017 1:23 PM EST) athologist Signature POC Glucose 166 65 - 199 [place] mg/dL [facility] - [...] Organization Address City/State/[place] [address] POCT Glucose (07/10/2017 11:52 AM EST) P athologist Signature POC Glucose 157 65 - 199 [facility] mg/dL [facility] [...] Organization Address City/State/[place] [address] POCT Glucose (07/10/2017 11:01 AM EST) P athologist Signature POC Glucose 158 65 - 199 [place] mg/dL [facility] - [...] Address City/State/ZIP Code Phon e Number [address] POCT Glucose (07/10/2017 9:54 AM EST) P athologist Signature POC Glucose 160 65 - 199 [facility] mg/dL [facility] [...] Address City/State/ZIP Code Phon e Number [address] POCT Glucose (07/10/2017 8:58 AM EST) athologist Signature POC Glucose 183 65 - 199 [place] mg/dL [facility] - [...] Address City/State/ZIP Code Phon e Number [address] POCT Glucose (07/10/2017 8:01 AM EST) athologist Signature POC Glucose 173 65 - 199 [place] mg/dL [facility] - [...] Organization Address City/State/[place] [address] POCT Glucose (07/10/2017 7:05 AM EST) athologist Signature POC Glucose 166 65 - 199 [place] mg/dL [facility] - [...] Organization Address City/State/[place] [address] POCT Glucose (07/10/2017 6:00 AM EST) P athologist Signature POC Glucose 162 65 - 199 [facility] mg/dL [facility] [...] Organization Address City/State/[place] [address] (ABNORMAL) Differential, Automated (07/10/2017 4:28 AM EST) Patholo gist Method Time Signature Neutrophils % 87.9 % [facility] LABORATORY Neutr Abs (ANC) 10.70 (H) 1.70 - [facility] 6.10 [facility] x10(3)/[facility] L LABORATORY Lymphocytes % 3.9 % [facility] LABORATORY Lymphocytes Abs 0.5 (L) 0.9 - 3.2 [facility] x10(3)/[facility] LABORATORY Monocytes % 7.0 % [facility] LABORATORY Monocyte Abs 0.8 0.3 - 0.9 [facility] x10(3)/[facility] LABORATORY Eosinophils % 0.3 % [facility] LABORATORY Eosinophils Abs 0.0 0.0 - 0.4 [facility] x10(3)/[facility] LABORATORY Basophils % 0.2 % [facility] LABORATORY Basophils Abs 0.0 0.0 - 0.1 [facility] x10(3)/[facility] LABORATORY Immature Gran % 0.70 % [facility] [...] Abs 0.08 (H) 0.00 - 0.04 x10(3)/[facility] LABORATORY Specimen Anatomical Collection Method Collection Time Receive d Time (Source) Location / / Volume Laterality Blood specimen 07/10/2017 4:28 AM 017 4:36 (specimen) EST AM EST Resulting Agency Comment Spec In Lab Yuan Webber MD HEMATOLOGY ORDERABLES Performing Organization Address City/State/[place] [address] (ABNORMAL) Hemogram (07/10/2017 4:28 AM EST) Analysis Performed At Patho logist Time Signature WBC 12.2 (H) 4.0 - 9.5 [facility] x10(3)/[facility] LABORATORY RBC 3.31 (L) 4.58 - [facility] 5.54 [facility] x10(6)/[facility] LABORATORY Hemoglobin 9.8 (L) 13.7 - [facility] 16.5 gm/dL [facility] LABORATORY Hematocrit 30.0 (L) 40.5 - [facility] 48.5 % [facility] LABORATORY MCV 90.6 82.9 - [facility] 93.1 [facility] LABORATORY MCH 29.6 27.5 - [place] 32.1 pg [facility] LABORATORY MCHC 32.7 32.0 - [facility] 35.7 gm/dL [facility] LABORATORY Platelets 135 (L) 145 - 357 [facility] x10(3)/[facility] LABORATORY RDWSD 50.8 (H) 36.0 - [facility] 45.0 [facility] RDWCV 15.4 (H) 11.4 - [facility] 13.8 % [facility] LABORATORY MPV 10.0 7.6 - 12.9 [facility] LABORATORY nRBC % Auto 0.0 % [facility] LABORATORY nRBC Abs Auto 0.000 0.000 - [facility] 0.000 [facility] x10(3)/[facility] LABORATORY Specimen Anatomical Collection Method Collection Time Receive d Time (Source) Location / / Volume Laterality Blood specimen 07/10/2017 4:28 AM 017 4:36 (specimen) EST AM EST Resulting Agency Comment Spec In Lab Yuan Webber MD HEMATOLOGY ORDERABLES Performing Organization Address City/State/[place] [address] (ABNORMAL) Basic Metabolic Panel (non-fasting) (07/10/2017 4:28 AM EST) P athologist Signature Glucose Lvl 178 65 - 199 [facility] mg/dL [facility] [...] Calcium 7.4 (L) 8.5 - 10.5 mg/dL [facility] LABORATORY Estimated GFR 60 >=60 [facility] LABORATORY Comment: The reported eGFR should be multiplied b y 1.2 for patients. The MDRD is not an appropriate measure o f renal function for patients with body mass extremes or in patients with acute kidney failure. http://Bru[employer]la[employer]laCar/DHnkdep http://[employer]la[employer]la[employer]/DHMCnkf Specimen Anatomical Collection Method Collection Time Receive d Time (Source) Location / / Volume Laterality Blood specimen 07/10/2017 4:28 AM 017 4:36 (specimen) EST AM EST Resulting Agency Comment Spec In Lab Yuan Webber MD CHEMISTRY ORDERABLES Performing Organization Address City/State/ZIP Code Phon e Number [address] POCT Glucose (07/10/2017 4:26 AM EST) athologist Signature POC Glucose 176 65 - 199 [place] mg/dL [facility] LABORATORY Comment: Supplemental ranges: <140 mg/dL before meals <180 mg/dL all other times of the day Specimen Anatomical Collection Method Collection Time Receive d Time (Source) Location / / Volume Laterality Blood specimen 07/10/2017 4:26 AM 017 4:26 (specimen) EST AM EST Yuan Webber MD POINT OF CARE TEST ORDERABLE S Performing Organization Address City/[facility]/[place] [address] (ABNORMAL) POCT Glucose (07/10/2017 3:06 AM EST) athologist Signature POC Glucose 204 (H) 65 - 199 [place] mg/dL [facility] LABORATORY Comment: Supplemental ranges: <140 mg/dL before meals <180 mg/dL all other times of the day Specimen Anatomical Collection Method Collection Time Receive d Time (Source) Location / / Volume Laterality Blood specimen 07/10/2017 3:06 AM 017 3:06 (specimen) EST AM EST Yuan Webber MD POINT OF CARE TEST ORDERABLE S Performing Organization Address City/[facility]/[place] [address] (ABNORMAL) POCT Glucose (07/10/2017 2:10 AM EST) athologist Signature POC Glucose 203 (H) 65 - 199 [place] mg/dL [facility] - [...] Address City/State/ZIP Code Phon e Number [address] POCT Glucose (07/10/2017 1:09 AM EST) P athologist Signature POC Glucose 196 65 - 199 [facility] mg/dL [facility] - [...] Address City/State/ZIP Code Phon e Number [address] POCT Glucose (07/10/2017 12:10 AM EST) athologist Signature POC Glucose 173 65 - 199 [place] [facility] mg/dL [facility] - [...] Address City/State/ZIP Code Phon e Number [address] POCT Glucose (07/09/2017 11:01 PM EST) athologist Signature POC Glucose 140 65 - 199 [place] mg/dL [facility] - [...] Organization Address City/State/[place] [address] POCT Glucose (07/09/2017 10:05 PM EST) athologist Signature POC Glucose 144 65 - 199 [place] [facility] mg/dL [facility] - [...] Address City/State/ZIP Code Phon e Number [address] POCT Glucose (07/09/2017 9:31 PM EST) athologist Signature POC Glucose 121 65 - 199 [place] mg/dL [facility] - [...] Address City/State/ZIP Code Phon e Number [address] POCT Glucose (07/09/2017 9:03 PM EST) athologist Signature POC Glucose 98 65 - 199 [place] mg/dL [facility] - [...] Organization Address City/State/[place] [address] POCT Glucose (07/09/2017 8:09 PM EST) athologist Signature POC Glucose 117 65 - 199 [place] mg/dL [facility] - [...] Organization Address City/State/[place] [address] POCT Glucose (07/09/2017 5:40 PM EST) athologist Signature POC Glucose 155 65 - 199 [place] mg/dL [facility] - [...] Organization Address City/State/[place] [address] POCT Glucose (07/09/2017 4:24 PM EST) athologist Signature POC Glucose 164 65 - 199 KATALINA RYAN mg/dL [facility] - [...] Organization Address City/State/[place] [address] POCT Glucose (07/09/2017 3:19 PM EST) athologist Signature POC Glucose 166 65 - 199 KATALINA RYAN mg/dL [facility] - [...] Organization Address City/State/[place] [address] POCT Glucose (07/09/2017 2:26 PM EST) athologist Signature POC Glucose 179 65 - 199 KATALINA ZHAORYAN mg/dL [facility] - [...] Organization Address City/State/[place] [address] (ABNORMAL) POCT Glucose (07/09/2017 1:29 PM EST) athologist Signature POC Glucose 210 (H) 65 - 199 KATALINA RYAN mg/dL [facility] - [...] Address City/State/ZIP Code Phon e Number [address] POCT Glucose (07/09/2017 12:20 PM EST) P athologist Signature POC Glucose 172 65 - 199 KATALINA RYAN mg/dL [facility] - [...] Address City/State/ZIP Code Phon e Number [address] POCT Glucose (07/09/2017 11:24 AM EST) P athologist Signature POC Glucose 156 65 - 199 [facility] mg/dL [facility] [...] Organization Address City/State/[place] [address] POCT Glucose (07/09/2017 11:11 AM EST) P athologist Signature POC Glucose 172 65 - 199 [facility] mg/dL [facility] [...] Address City/State/ZIP Code Phon e Number [address] POCT Glucose (07/09/2017 10:08 AM EST) P athologist Signature POC Glucose 176 65 - 199 [facility] mg/dL [facility] LABORATORY Comment: Supplemental ranges: <140 mg/dL before meals <180 mg/dL all other times of the day Specimen Anatomical Collection Method Collection Time Receive d Time (Source) Location / / Volume Laterality Blood specimen 07/09/2017 10:08 7 (specimen) AM EST 10:08 AM EST Yuan Webber MD POINT OF CARE TEST ORDERABLE S Performing Organization Address City/[facility]/ZIP Code Phon e Number [address] POCT Glucose (07/09/2017 8:02 AM EST) P athologist Signature POC Glucose 178 65 - 199 [facility] mg/dL [facility] [...] Organization Address City/State/[place] [address] (ABNORMAL) BLOOD GAS 2 ARTERIAL (07/09/2017 5:37 AM EST) Analysis Performed At Patho logist Time Signature pH Art 7.36 7.35 - [facility] 7.45 [facility] LABORATORY pCO2 Art 38 35 - 45 [facility] LABORATORY pO2 Art 79 (L) 85 - 104 [facility] LABORATORY HCO3 Art 20.9 20.0 - [facility] 26.0 [facility] mmol/L HOSPITAL LABORATORY BE Art -4.6 (L) -3.0 - 3.0 [facility] mmol/L [facility] LABORATORY Hgb Blood Gas 10.5 (L) 13.7 - [facility] 16.5 gm/dL [facility] LABORATORY O2HB Art 93.8 (L) 94.0 - [facility] 97.0 % [facility] LABORATORY COHB Art 0.3 % [facility] LABORATORY Comment: Nonsmokers: 0.5-1.5% COHB Smokers: Variable, but usually less than 10% Toxic: 20-30% COHB Lethal: Greater than 60% COHB METHB Art 0.6 <=1.5 % [facility] LABORATORY Na Whole Blood 141 [...] [facility] LABORATORY FIO2 Art 40 % [facility] LABORATORY PF Ratio Art 198 [facility] LABORATORY Specimen Anatomical Collection Method Collection Time Receive d Time (Source) Location / / Volume Laterality Blood specimen 07/09/2017 5:37 AM 017 5:37 (specimen) EST AM EST Yuan Webber MD CHEMISTRY ORDERABLES Performing Organization Address City/State/[place] [address] POCT Glucose (07/09/2017 3:27 AM EST) athologist Signature POC Glucose 192 65 - 199 [facility] [...] Address City/State/[place] [address] (ABNORMAL) Basic Metabolic Panel (non-fasting) (07/09/2017 2:30 AM EST) athologist Signature Glucose Lvl 179 65 - 199 [facility] mg/dL [facility] LABORATORY Comment: Diabetes: >=200 mg/dL plus symp toms BUN 17 10 - 20 mg/dL [facility] LABORATORY Creatinine 1.34 0.80 - 1.50 mg/dL [facility] LABORATORY Sodium 144 135 - 145 mmol/L [facility] LABORATORY Potassium Not Perf 3.5 - 5.0 mmol/L [facility] LABORATORY Comment: Duplicate order Please [...] Calcium 7.1 (L) 8.5 - 10.5 mg/dL [facility] LABORATORY Comment: result rechecked-JLK Estimated GFR 53 (L) >=60 [facility] LABORATORY Comment: The reported eGFR should be multiplied b y 1.2 for patients. The MDRD is not an appropriate measure o f renal function for patients with body mass extremes or in patients with acute kidney failure. [email or web address]/DHnkdep [email or web address] Specimen Anatomical Collection Method Collection Time Receive d Time (Source) Location / / Volume Laterality Blood specimen Venous Draw / 07/09/2017 2:30 AM 2016 2:42 (specimen) Unknown EST AM EST Resulting Agency Comment Spec In Lab Yuan Webber MD CHEMISTRY ORDERABLES Performing Organization Address City/[facility] [place] [address] (ABNORMAL) Potassium (07/09/2017 2:30 AM EST) P athologist Signature Potassium 5.1 (H) 3.5 - 5.0 [facility] mmol/L [facility] LABORATORY Comment: Please note: ??Patients with WBC [...] Webber MD CHEMISTRY ORDERABLES Performing Organization Address [facility] [place] [address] (ABNORMAL) Hemogram (07/09/2017 2:30 AM EST) Analysis Performed At Patho logist Time Signature WBC 12.5 (H) 4.0 - 9.5 [facility] RYAN x10(3)/[facility] LABORATORY RBC 3.38 (L) 4.58 - K[place]ALINA RYAN 5.54 [facility] x10(6)/[facility] LABORATORY Hemoglobin 10.1 (L) 13.7 - KATALINA RYAN 16.5 gm/dL [facility] LABORATORY Hematocrit 30.3 (L) 40.5 - KATALINA RYAN 48.5 % [facility] LABORATORY MCV 89.6 82.9 - KATALINA DAVIS 93.1 [facility] LABORATORY MCH 29.9 27.5 - KATALINA DAVIS 32.1 pg [facility] LABORATORY MCHC 33.3 32.0 - KATALINA DAVIS 35.7 gm/dL [facility] LABORATORY Platelets 127 (L) 145 - 357 [place] x10(3)/[facility] LABORATORY RDWSD 49.3 (H) 36.0 - KATALINA DAVIS 45.0 [facility] LABORATORY RDWCV 15.2 (H) 11.4 - KATALINA DAVIS 13.8 % [facility] LABORATORY MPV 9.9 7.6 - 12.9 KATALINA DAVIS [facility] LABORATORY nRBC % Auto 0.0 % [facility] LABORATORY nRBC Abs Auto 0.000 0.000 - KATALINA DAVIS 0.000 [facility] x10(3)/[facility] LABORATORY Specimen Anatomical Collection Method Collection Time Receive d Time (Source) Location / / Volume Laterality Blood specimen 07/09/2017 2:30 AM 017 2:41 (specimen) EST AM EST Resulting Agency Comment Spec In Lab Yuan Webber MD HEMATOLOGY ORDERABLES Performing Organization Address City/[facility]/ZIP Code Phon e Number [address] POCT Glucose (07/09/2017 2:10 AM EST) athologist Signature POC Glucose 169 65 - 199 [facility] mg/dL [facility] LABORATORY Comment: Supplemental ranges: <140 mg/dL before meals <180 mg/dL all other times of the day Specimen Anatomical Collection Method Collection Time Receive d Time (Source) Location / / Volume Laterality Blood specimen 07/09/2017 2:10 AM 017 2:10 (specimen) EST AM EST Yuan Webber MD POINT OF CARE TEST ORDERABLE S Performing Organization Address City/[facility] Code Phon e Number [address] POCT Glucose (07/09/2017 1:01 AM EST) athologist Signature POC Glucose 173 65 - 199 [facility] mg/dL [facility] LABORATORY Comment: Supplemental ranges: <140 mg/dL before meals <180 mg/dL all other times of the day Specimen Anatomical Collection Method Collection Time Receive d Time (Source) Location / / Volume Laterality Blood specimen 07/09/2017 1:01 AM 017 1:01 (specimen) EST AM EST Yuan Webber MD POINT OF CARE TEST ORDERABLE S Performing Organization Address City/[facility]/[place] [address] Blood culture (07/09/2017 12:40 AM EST) [facility] gist Method Time Signature Blood Culture No growth KATALINA DAVIS at 5 days. [facility] LABORATORY Specimen Anatomical Collection Method Collection Time Receive d Time (Source) Location / / Volume Laterality Blood specimen STRUCTURE OF RIGHT 07/09/2017 12:40 3:58 (specimen) UPPER LIMB / AM EST AM EST Unknown Resulting Agency Comment Spec In Lab Yuan Webber MD MICROBIOLOGY - BLOOD ORDERAB LES Performing Organization Address City/[facility]/[place] [address] Blood culture (07/09/2017 12:30 AM EST) [facility] gist Method Time Signature Blood Culture No growth KATALINA DAVIS at 5 days. [facility] LABORATORY Specimen Anatomical Collection Method Collection Time Receive d Time (Source) Location / / Volume Laterality Blood specimen STRUCTURE OF LEFT 07/09/2017 12:30 1211/2016 3:59 (specimen) UPPER LIMB / AM EST AM EST Unknown Resulting Agency Comment Spec In Lab Yuan Webber MD MICROBIOLOGY - BLOOD ORDERAB LES Performing Organization Address City/[facility]/[place] [address] (ABNORMAL) Urinalysis Microscopic Exam (07/09/2017 12:05 AM EST) Analysis Performed At Patho logist Time Signature RBC UA 32 (H) 0 - 3 /HPF [facility] LABORATORY WBC UA 5 (H) 0 - 3 /HPF [facility] LABORATORY Squam Epith UA <1 <=4 /HPF [facility] LABORATORY Hyaline Cast 17 (H) 0 - 2 /LPF [facility] LABORATORY Gran Cast UA 1 (H) <=0 /LPF [facility] LABORATORY Uric Ac Bianca Rare (A) None /HPF [facility] LABORATORY Specimen (Source) Anatomical Collection Method Collection Time Re ceived Time Location / / Volume Laterality Urine specimen 07/09/2017 12: 7 obtained via AM EST 12:39 AM EST indwelling urinary catheter (specimen) Resulting Agency Comment Spec In Lab Yuan Webber MD URINE ORDERABLES Performing Organization Address City/State/[place] [address] (ABNORMAL) Urinalysis with reflex Culture (07/09/2017 12:05 AM EST) [facility] gist Method Time Signature Glucose UA Negative Negative [facility] mg/dL [facility] LABORATORY Protein UA 30 (A) Negative [facility] mg/dL [facility] LABORATORY Bilirubin UA Negative Negative [facility] mg/dL [facility] LABORATORY Comment: Clinical correlation required for positi ve Urine Bilirubin results as false positive may occur with some drugs and d rug related products. If a false positive is suspected a serum total bili yeager should be considered if clinically indicated. Urobilinogen UA Normal Normal mg/dL [facility] LABORATORY pH UA 5.0 5.0 - 8.0 [facility] LABORATORY Blood UA Moderate (A) Negative mg/dL [facility] LABORATORY Ketones UA Negative Negative mg/dL [facility] LABORATORY Nitrite UA Negative Negative [facility] LABORATORY Leukocytes UA Negative Negative [facility] LABORATORY Appearance UA Hazy (A) Clear [facility] LABORATORY Spec [place] UA 1.025 1.002 - 1.030 [facility] LABORATORY Color UA Yellow Yellow [facility] LABORATORY Culture Reflexed No [facility] LABORATORY Specimen (Source) Anatomical Collection Method Collection Time Re ceived Time Location / / Volume Laterality Urine specimen 07/09/2017 12:05 12/15/201 7 obtained via AM EST 12:39 AM EST indwelling urinary catheter (specimen) Resulting Agency Comment Spec In Lab Yuan Webber MD URINE ORDERABLES Performing Organization Address City/[facility]/ZIP Code Phon e Number [address] POCT Glucose (07/08/2017 11:01 PM EST) P athologist Signature POC Glucose 191 65 - 199 [facility] mg/dL [facility] LABORATORY Comment: Supplemental ranges: <140 mg/dL before meals <180 mg/dL all other times of the day Specimen Anatomical Collection Method Collection Time Receive d Time (Source) Location / / Volume Laterality Blood specimen 07/08/2017 11:01 7 (specimen) PM EST 11:01 PM EST Yuan Webber MD POINT OF CARE TEST ORDERABLE S Performing Organization Address [facility]/ZIP Code Phon e Number [address] POCT Glucose (07/08/2017 10:04 PM EST) P athologist Signature POC Glucose 198 65 - 199 [facility] mg/dL [facility] LABORATORY Comment: Supplemental ranges: <140 mg/dL before meals <180 mg/dL all other times of the day Specimen Anatomical Collection Method Collection Time Receive d Time (Source) Location / / Volume Laterality Blood specimen 07/08/2017 10:04 7 (specimen) PM EST 10:04 PM EST Yuan Webber MD POINT OF CARE TEST ORDERABLE S Performing Organization Address City/[facility]/ZIP Code Phon e Number [address] Prepare Albumin 5% in [...] Organization Address City/State/[place] [address] POCT Glucose (07/08/2017 8:28 PM EST) athologist Signature POC Glucose 195 65 - 199 KATALINA ZHAORYAN mg/dL [facility] LABORATORY Comment: Supplemental ranges: <140 mg/dL before meals <180 mg/dL all other times of the day Specimen Anatomical Collection Method Collection Time Receive d Time (Source) Location / / Volume Laterality Blood specimen 07/08/2017 8:28 PM 017 8:28 (specimen) EST PM EST Yuan Webber MD POINT OF CARE TEST ORDERABLE S Performing Organization Address City/[facility]/[place] [address] (ABNORMAL) POCT Glucose (07/08/2017 7:13 PM EST) athologist Signature POC Glucose 220 (H) 65 - 199 KATALINA ZHAORYAN mg/dL [facility] LABORATORY Comment: Supplemental ranges: <140 mg/dL before meals <180 mg/dL all other times of the day Specimen Anatomical Collection Method Collection Time Receive d Time (Source) Location / / Volume Laterality Blood specimen 07/08/2017 7:13 PM 017 7:13 (specimen) EST PM EST Yuan Webber MD POINT OF CARE TEST ORDERABLE S Performing Organization Address City/[facility]/[place] [address] POCT Glucose (07/08/2017 5:04 PM EST) athologist Signature POC Glucose 147 65 - 199 KATALINA ZHAORYAN mg/dL [facility] - [...] Address City/State/[place] [address] (ABNORMAL) BLOOD GAS 2 ARTERIAL (07/08/2017 4:13 PM EST) Analysis Performed At Patho logist Time Signature pH Art 7.38 7.35 - [facility] 7.45 [facility] LABORATORY pCO2 Art 36 35 - 45 [facility] mmHg [facility] LABORATORY pO2 Art 91 85 - 104 [facility] mmHg [facility] LABORATORY HCO3 Art 20.9 20.0 - [facility] 26.0 [facility] mmol/L [facility] LABORATORY BE Art -4.2 (L) -3.0 - 3.0 [facility] mmol/L [facility] LABORATORY Hgb Blood Gas 11.7 (L) 13.7 - [facility] 16.5 gm/dL [facility] LABORATORY O2HB Art 95.1 94.0 - [facility] 97.0 % [facility] LABORATORY COHB Art 0.6 % [facility] LABORATORY Comment: Nonsmokers: 0.5-1.5% COHB Smokers: Variable, but usually less than 10% Toxic: 20-30% COHB Lethal: Greater than 60% COHB METHB Art 0.6 <=1.5 % [facility] LABORATORY Na Whole Blood 139 [...] [facility] LABORATORY FIO2 Art 40 % [facility] LABORATORY PF Ratio Art 228 [facility] LABORATORY Specimen Anatomical Collection Method Collection Time Receive d Time (Source) Location / / Volume Laterality Blood specimen 07/08/2017 4:13 PM 017 4:13 (specimen) EST PM EST Yuan Webber MD CHEMISTRY ORDERABLES Performing Organization Address City/[facility]/ZIP Code Phon e Number [address] POCT Glucose (07/08/2017 4:01 PM EST) athologist Signature POC Glucose 148 65 - 199 [facility] - [...] Address City/State/ZIP Code Phon e Number [address] POCT Glucose (07/08/2017 3:21 PM EST) athologist Signature POC Glucose 118 65 - 199 [facility] mg/dL [facility] [...] Address City/State/ZIP Code Phon e Number [address] POCT Glucose (07/08/2017 2:01 PM EST) athologist Signature POC Glucose 129 65 - 199 [facility] mg/dL [facility] [...] Organization Address City/State/[place] [address] POCT Glucose (07/08/2017 11:53 AM EST) athologist Signature POC Glucose 156 65 - 199 KATALINA RYAN mg/dL [facility] - [...] Organization Address City/State/[place] [address] POCT Glucose (07/08/2017 11:04 AM EST) athologist Signature POC Glucose 181 65 - 199 KATALINA RYAN mg/dL [facility] - [...] Organization Address City/State/[place] [address] (ABNORMAL) POCT Glucose (07/08/2017 9:24 AM EST) athologist Signature POC Glucose 203 (H) 65 - 199 KATALINA RYAN mg/dL [facility] LABORATORY Comment: Supplemental ranges: <140 mg/dL before meals <180 mg/dL all other times of the day Specimen Anatomical Collection Method Collection Time Receive d Time (Source) Location / / Volume Laterality Blood specimen 07/08/2017 9:24 AM 017 9:24 (specimen) EST AM EST Yuan Webber MD POINT OF CARE TEST ORDERABLE S Performing Organization Address City/[facility]/[place] [address] APTT (07/08/2017 8:40 AM [...] Organization Address City/State/[place] [address] (ABNORMAL) Prothrombin Time (07/08/2017 [...] Organization Address City/State/[place] [address] (ABNORMAL) POCT Glucose (07/08/2017 7:38 AM EST) athologist Signature POC Glucose 232 (H) 65 - 199 [facility] mg/dL [facility] LABORATORY Comment: Supplemental ranges: <140 mg/dL before meals <180 mg/dL all other times of the day Specimen Anatomical Collection Method Collection Time Receive d Time (Source) Location / / Volume Laterality Blood specimen 07/08/2017 7:38 AM 017 7:38 (specimen) EST AM EST Yuan Webber MD POINT OF CARE TEST ORDERABLE S Performing Organization Address City/[facility]/[place] [address] (ABNORMAL) POCT Glucose (07/08/2017 7:07 AM EST) athologist Signature POC Glucose 234 (H) 65 - 199 [facility] mg/dL [facility] [...] Organization Address City/State/[place] [address] (ABNORMAL) POCT Glucose (07/08/2017 6:04 AM EST) athologist Signature POC Glucose 225 (H) 65 - 199 [facility] mg/dL [facility] [...] Organization Address City/State/[place] [address] (ABNORMAL) POCT Glucose (07/08/2017 5:31 AM EST) P athologist Signature POC Glucose 216 (H) 65 - 199 [facility] mg/dL [facility] [...] Organization Address City/State/[place] [address] (ABNORMAL) POCT Glucose (07/08/2017 4:52 AM EST) P athologist Signature POC Glucose 257 (H) 65 - 199 [facility] mg/dL [facility] [...] Organization Address City/State/[place] [address] (ABNORMAL) BLOOD GAS 2 ARTERIAL (07/08/2017 4:04 AM EST) Analysis Performed At Patho logist Time Signature pH Art 7.30 (L) 7.35 - [facility] 7.45 [facility] LABORATORY pCO2 Art 41 35 - 45 [facility] LABORATORY pO2 Art 83 (L) 85 - 104 [facility] LABORATORY HCO3 Art 19.6 (L) 20.0 - [facility] 26.0 [facility] mmol/L [facility] LABORATORY BE Art -6.8 (L) -3.0 - 3.0 [facility] mmol/L [facility] LABORATORY Hgb Blood Gas 12.2 (L) 13.7 - [facility] 16.5 gm/dL [facility] LABORATORY O2HB Art 93.5 (L) 94.0 - [facility] 97.0 % [facility] LABORATORY COHB Art 0.4 % [facility] LABORATORY Comment: Nonsmokers: 0.5-1.5% COHB Smokers: Variable, but usually less than 10% Toxic: 20-30% COHB Lethal: Greater than 60% COHB METHB Art 0.8 <=1.5 % [facility] LABORATORY Na [...] [facility] LABORATORY Comment: Noted by electrical/instrument technician. FIO2 Art 40 % [facility] LABORATORY PF Ratio Art 208 [facility] LABORATORY Specimen Anatomical Collection Method Collection Time Receive d Time (Source) Location / / Volume Laterality Blood specimen 07/08/2017 4:04 AM 017 4:04 (specimen) EST AM EST Daphne Shahid MD CHEMISTRY ORDERABLES Performing Organization Address City/State/[place] [address] Scan, Peripheral Blood (07/08/2017 [...] Address City/State/[place] [address] (ABNORMAL) Differential, Automated (07/08/2017 4:00 AM EST) Patholo gist Method Time Signature Neutrophils % 85.4 % [facility] LABORATORY Neutr Abs (ANC) 16.07 (H) 1.70 - [facility] 6.10 [facility] x10(3)/[facility] LABORATORY Lymphocytes % 3.5 % [facility] LABORATORY Lymphocytes Abs 0.6 (L) 0.9 - 3.2 [facility] x10(3)/[facility] LABORATORY Monocytes % 10.4 % [facility] LABORATORY Monocyte Abs 2.0 (H) 0.3 - 0.9 [facility] x10(3)/[facility] LABORATORY Eosinophils % 0.0 % [facility] LABORATORY Eosinophils Abs 0.0 0.0 - 0.4 [facility] x10(3)/[facility] LABORATORY Basophils % 0.1 % [facility] LABORATORY Basophils Abs 0.0 0.0 - 0.1 [facility] x10(3)/[facility] LABORATORY Immature Gran % 0.60 % [facility] [...] Abs 0.12 (H) 0.00 - 0.04 x10(3)/[facility] LABORATORY Specimen Anatomical Collection Method Collection Time Receive d Time (Source) Location / / Volume Laterality Blood specimen 07/08/2017 4:00 AM 017 4:09 (specimen) EST AM EST Resulting Agency Comment Spec In Lab Yuan Webber MD HEMATOLOGY ORDERABLES Performing Organization Address City/State/[place] [address] (ABNORMAL) Hemogram (07/08/2017 4:00 AM EST) Analysis Performed At Patho logist Time Signature WBC 18.8 (H) 4.0 - 9.5 [facility] LABORATORY RBC 4.00 (L) 4.58 - [facility] 5.54 [facility] x10(6)/[facility] LABORATORY Hemoglobin 11.9 (L) 13.7 - [facility] 16.5 gm/dL [facility] LABORATORY Hematocrit 35.9 (L) 40.5 - [facility] 48.5 % [facility] LABORATORY MCV 89.8 82.9 - [facility] 93.1 [facility] LABORATORY MCH 29.8 27.5 - [facility] RYAN 32.1 pg [facility] LABORATORY MCHC 33.1 32.0 - [facility] RYAN 35.7 gm/dL [facility] LABORATORY Platelets 232 145 - 357 [facility] x10(3)/[facility] LABORATORY RDWSD 47.6 (H) 36.0 - [facility] RYAN 45.0 [facility] LABORATORY RDWCV 14.5 (H) 11.4 - [facility] RYAN 13.8 % [facility] LABORATORY MPV 9.5 7.6 - 12.9 [facility] nRBC % Auto 0.0 % [facility] LABORATORY nRBC Abs Auto 0.000 0.000 - [place] RYAN 0.000 [facility] x10(3)/[facility] LABORATORY Specimen Anatomical Collection Method Collection Time Receive d Time (Source) Location / / Volume Laterality Blood specimen 07/08/2017 4:00 AM 017 4:09 (specimen) EST AM EST Resulting Agency Comment Spec In Lab Yuan Webber MD HEMATOLOGY ORDERABLES Performing Organization Address City/[facility]/[place] [address] (ABNORMAL) Electrolytes panel (07/08/2017 4:00 AM EST) athologist [facility] Sodium 139 135 - 145 [facility] mmol/L [facility] LABORATORY Potassium 4.7 3.5 - 5.0 [facility] mmol/L [facility] LABORATORY Comment: result rechecked-JLK Please note: ??Patients [...] Webber MD CHEMISTRY ORDERABLES Performing Organization Address City/[facility]/[place] [address] (ABNORMAL) Cardiac Enzymes (LEB/CGP) (07/08/2017 4:00 AM EST) athologist [facility] Troponin-T 1.88 (H) 0.00 - [facility] 0.00 ng/mL [facility] LABORATORY Comment: The 99th percentile for Troponin [...] additional sample may be indicated. Reference: Third [place] Definition of Myocardial Infarction. Journal of the [place] [employer] 2012;60:1581-98 CK, Total 413 (H) 0 - 200 unit/L [facility] LABORATORY Comment: result rechecked-AYDIN Specimen Anatomical Collection Method Collection Time Receive d Time (Source) Location / / Volume Laterality Blood specimen 07/08/2017 4:00 AM 017 4:09 (specimen) EST AM EST Resulting Agency Comment Spec In Lab Yuan Webber MD CHEMISTRY ORDERABLES Performing Organization Address City/State/[place] [address] (ABNORMAL) Glucose, fasting (07/08/2017 4:00 AM EST) athologist Signature Glucose 287 (H) 65 - 99 [facility] Fasting mg/dL [facility] LABORATORY Comment: ?Fasting* Glucose Interpretive C riteria [...] of Diabetes Mellitus, Position Statement from the [place] [employer]. ??Diabete s Care, Volume 33, Supplement 1, Jul 2009 Specimen Anatomical Collection Method Collection Time Receive d Time (Source) Location / / Volume Laterality Blood specimen 07/08/2017 4:00 AM 017 4:09 (specimen) EST AM EST Resulting Agency Comment Spec In Lab Yuan Webber MD CHEMISTRY ORDERABLES Performing Organization Address City/State/[place] [address] (ABNORMAL) Creatinine (07/08/2017 4:00 AM EST) Analysis Performed At Patho logist Time Signature Creatinine 1.55 (H) 0.80 - [facility] 1.50 mg/dL [facility] LABORATORY Estimated GFR 44 (L) >=60 [facility] LABORATORY Comment: The reported eGFR should be multiplied b y 1.2 for patients. The MDRD is not an appropriate measure o f renal function for patients with body mass extremes or in patients with acute kidney failure. http://[employer]/DHnkdep http://[employer]/DHMCnkf Specimen Anatomical Collection Method Collection Time Receive d Time (Source) Location / / Volume Laterality Blood specimen 07/08/2017 4:00 AM 017 4:09 (specimen) EST AM EST Resulting Agency Comment Spec In Lab Yuan Webber MD CHEMISTRY ORDERABLES Performing Organization Address City/State/[place] [address] BUN (07/08/2017 4:00 AM EST) P athologist Signature BUN 16 10 - 20 [facility] mg/dL [facility] LABORATORY Specimen Anatomical Collection Method Collection Time Receive d Time (Source) Location / / Volume Laterality Blood specimen 07/08/2017 4:00 AM 017 4:09 (specimen) EST AM EST Resulting Agency Comment Spec In Lab Yuna Webber MD CHEMISTRY ORDERABLES Performing Organization Address City/[facility]/[place] [address] (ABNORMAL) POCT Glucose (07/08/2017 3:00 AM EST) P athologist Signature POC Glucose 273 (H) 65 - 199 [facility] mg/dL [facility] [...] Organization Address City/State/[place] [address] (ABNORMAL) POCT Glucose (07/08/2017 1:57 AM EST) athologist Signature POC Glucose 288 (H) 65 - 199 [facility] mg/dL [facility] [...] Organization Address City/State/[place] [address] (ABNORMAL) POCT Glucose (07/08/2017 1:01 AM EST) athologist Signature POC Glucose 315 (H) 65 - 199 [facility] mg/dL [facility] [...] Organization Address City/State/[place] [address] (ABNORMAL) BLOOD GAS 2 ARTERIAL (07/08/2017 12:09 AM EST) athologist Signature pH Art 7.26 7.35 - [facility] (Critical) 7.45 [facility] LABORATORY Comment: Noted by electrical/instrument technician. pCO2 Art 41 35 - 45 mmHg [facility] LABORATORY pO2 Art 96 85 [facility] COHB Art 0.2 % [facility] LABORATORY Comment: Nonsmokers: 0.5-1.5% COHB Smokers: Variable, but usually less than 10% Toxic: 20-30% COHB Lethal: Greater than 60% COHB METHB Art 0.6 <=1.5 % [facility] LABORATORY Na Whole Blood 141 [...] [facility] LABORATORY Comment: Noted by electrical/instrument technician. FIO2 Art 40 % [facility] LABORATORY PF Ratio Art 240 [facility] LABORATORY Specimen Anatomical Collection Method Collection Time Receive d Time (Source) Location / / Volume Laterality Blood specimen Arterial Draw / 07/08/2017 12:09 2016 5:31 (specimen) Unknown AM EST AM EST Resulting Agency Comment Spec In Lab Samy Maldonado MD CHEMISTRY ORDERABLES Performing Organization Address City/[facility]/[place] [address] (ABNORMAL) POCT Glucose (07/07/2017 10:56 PM EST) athologist Signature POC Glucose 292 (H) 65 - 199 [facility] mg/dL [facility] LABORATORY Comment: Supplemental ranges: <140 mg/dL before meals <180 mg/dL all other times of the day Specimen Anatomical Collection Method Collection Time Receive d Time (Source) Location / / Volume Laterality Blood specimen 07/07/2017 10:56 7 (specimen) PM EST 10:56 PM EST Daphne Shahid MD POINT OF CARE TEST ORDERABLE S Performing Organization Address City/[facility]/[place] [address] (ABNORMAL) BLOOD GAS 2 ARTERIAL (07/07/2017 10:04 PM EST) athologist Signature pH Art 7.22 7.35 - [facility] (Critical) 7.45 [facility] LABORATORY Comment: Noted by electrical/instrument technician. pCO2 Art 42 35 - 45 mmHg [facility] LABORATORY pO2 Art 94 85 [...] [facility] COHB Art 0.7 % [facility] LABORATORY Comment: Nonsmokers: 0.5-1.5% COHB Smokers: Variable, but usually less than 10% Toxic: 20-30% COHB Lethal: Greater than 60% COHB METHB Art 0.7 <=1.5 % [facility] LABORATORY Na Whole Blood 140 [...] [facility] Comment: Noted by electrical/instrument technician. FIO2 Art 40 % [facility] LABORATORY PF Ratio Art 235 [facility] LABORATORY Specimen Anatomical Collection Method Collection Time Receive d Time (Source) Location / / Volume Laterality Blood specimen 07/07/2017 10:04 7 (specimen) PM EST 10:04 PM EST Daphne Shahid MD CHEMISTRY ORDERABLES Performing Organization Address City/State/[place] [address] (ABNORMAL) Hemoglobin (07/07/2017 10:00 PM EST) P athologist Signature Hemoglobin 12.8 (L) 13.7 - [facility] 16.5 gm/dL [facility] LABORATORY Specimen Anatomical Collection Method Collection Time Receive d Time (Source) Location / / Volume Laterality Blood specimen 07/07/2017 10:00 7 (specimen) PM EST 10:13 PM EST Resulting Agency Comment Spec In Lab Yuan Webber MD HEMATOLOGY ORDERABLES Performing Organization Address City/[facility]/[place] [address] (ABNORMAL) Potassium (07/07/2017 10:00 PM EST) athologist Signature Potassium 3.4 (L) 3.5 - 5.0 [facility] mmol/L [facility] LABORATORY Comment: Please note: ??Patients with WBC [...] Webber MD CHEMISTRY ORDERABLES Performing Organization Address City/[facility]/[place] [address] (ABNORMAL) POCT Glucose (07/07/2017 8:49 PM EST) athologist Signature POC Glucose 241 (H) 65 - 199 [facility] mg/dL [facility] LABORATORY Comment: Supplemental ranges: <140 mg/dL before meals <180 mg/dL all other times of the day Specimen Anatomical Collection Method Collection Time Receive d Time (Source) Location / / Volume Laterality Blood specimen 07/07/2017 8:49 PM 017 8:49 (specimen) EST PM EST Daphne Shahid MD POINT OF CARE TEST ORDERABLE S Performing Organization Address City/[facility]/[place] [address] Prepare Albumin 5% in 250 mL (07/07/2017 8:03 PM EST) athologist Signature Dispensed? Yes [facility] LABORATORY Specimen Anatomical Collection Method Collection Time Receive d Time (Source) Location / / Volume Laterality Blood specimen No Charge / 07/07/2017 8:03 PM 017 8:04 (specimen) Unknown EST PM EST Resulting Agency Comment Spec In Lab Michael BROWN BLOOD BANK ORDERABLES Performing Organization Address City/State/[place] [address] EKG 12 Lead (07/07/2017 7:17 PM EST) Component Value Ref Range Test Analysis Performed Pathologis t Method Time At Signature Ventricular rate 75 BPM MUSE SYSTEM Atrial Rate 75 BPM MUSE SYSTEM P-R Interval 168 ms MUSE SYSTEM QRS Duration 104 ms MUSE SYSTEM Q-T Interval 462 ms MUSE SYSTEM QTC Calculated 515 ms MUSE SYSTEM (Bezet) Calculated P [place] 52 degrees MUSE SYSTEM Calculated R [place] -40 degrees MUSE SYSTEM Calculated T [place] 39 degrees MUSE SYSTEM INTERPRETATION Normal sinus [...] Signature pH Art 7.21 7.35 - [facility] (Critical) 7.45 [facility] LABORATORY Comment: Noted by electrical/instrument technician. pCO2 Art 50 (H) 35 - 45 mmHg [facility] LABORATORY pO2 Art 238 (H) 85 - 104 mmHg [facility] LABORATORY HCO3 Art 19.8 (L) 20.0 - 26.0 mmol/L [facility] OCK [facility] LABORATORY BE Art -8.1 (L) -3.0 - 3.0 mmol/L [facility] LABORATORY Hgb Blood Gas 12.8 (L) 13.7 - 16.5 gm/dL [facility] LABORATORY O2HB Art 97.5 (H) 94.0 - 97.0 % [facility] LABORATORY COHB Art 0.5 % [facility] LABORATORY Comment: Nonsmokers: 0.5-1.5% COHB Smokers: Variable, but usually less than 10% Toxic: 20-30% COHB Lethal: Greater than 60% COHB METHB Art 0.7 <=1.5 % [facility] LABORATORY Na Whole Blood 140 135 - 145 mmol/L [facility] LABORATORY K Whole Blood 3.0 (Critical) 3.5 - 5.0 mmol/L [facility] LABORATORY Comment: Noted by electrical/instrument technician. [...] [facility] Comment: Noted by electrical/instrument technician. FIO2 Art 100 % [facility] LABORATORY PF Ratio Art 238 [facility] LABORATORY Specimen Anatomical Collection Method Collection Time Receive d Time (Source) Location / / Volume Laterality Blood specimen 07/07/2017 6:57 PM 017 6:57 (specimen) EST PM EST Daphne Shahid MD CHEMISTRY ORDERABLES Performing Organization Address City/State/[place] [address] (ABNORMAL) BLOOD GAS 2 ARTERIAL (07/07/2017 5:31 PM EST) athologist Signature pH Art 7.29 7.35 - [facility] (Critical) 7.45 [facility] LABORATORY Comment: Noted by electrical/instrument technician. pCO2 Art 48 (H) 35 - 45 mmHg [facility] LABORATORY pO2 Art 137 (H) [...] 60% COHB METHB Art 0.3 <=1.5 % [facility] LABORATORY Na Whole Blood 132 [...] Address City/State/[place] [address] Fibrinogen (07/07/2017 5:30 PM EST) P athologist Signature Fibrinogen 224 180 - 510 [facility] mg/dL [facility] LABORATORY Comment: Called by: JEET, Read back [...] Perez MD HEMATOLOGY ORDERABLES Performing Organization Address City/[facility]/ZIP Code Phon e Number [address] APTT (07/07/2017 5:30 PM [...] Perez MD HEMATOLOGY ORDERABLES Performing Organization Address City/[facility]/ZIP [facility] [place] [address] (ABNORMAL) Prothrombin Time (07/07/2017 [...] Address City/State/[place] [address] (ABNORMAL) Hemogram (07/07/2017 5:30 PM EST) athologist Signature WBC 19.6 (H) 4.0 - 9.5 [facility] x10(3)/[facility] LABORATORY RBC 3.08 (L) 4.58 - [facility] 5.54 [facility] x10(6)/[facility] LABORATORY Hemoglobin 9.2 (L) 13.7 - [facility] 16.5 gm/dL [facility] LABORATORY Hematocrit 28.0 (L) 40.5 - [facility] 48.5 % [facility] LABORATORY Comment: This result has been called to MONICA WEINSTEIN SON by DONALD GROSSMAN on 07 07 2017 at 1759, and has been read back. MCV 90.9 82.9 - 93.1 [facility] LABORATORY MCH 29.9 27.5 - 32.1 pg [facility] LABORATORY MCHC 32.9 32.0 - 35.7 gm/dL [facility] LABORATORY Platelets 155 145 - 357 x10(3)/[facility] LABORATORY RDWSD 46.5 (H) 36.0 - 45.0 [facility] LABORATORY RDWCV 14.1 (H) 11.4 - 13.8 % [facility] LABORATORY MPV 9.5 7.6 - 12.9 [facility] LABORATORY nRBC % Auto 0.0 % [facility] LABORATORY nRBC Abs Auto 0.000 0.000 - 0.000 x10(3)/mcL M [facility] LABORATORY Specimen Anatomical Collection Method Collection Time Receive d Time (Source) Location / / Volume Laterality Blood specimen 07/07/2017 5:30 PM 017 5:34 (specimen) EST PM EST Resulting Agency Comment Spec In Lab Yifan Perez MD HEMATOLOGY ORDERABLES Performing Organization Address City/[facility]/ZIP Code Phon e Number [address] Prepare Platelets, Apheresis (07/07/2017 5:00 PM EST) P athologist Signature Dispensed? Yes [facility] LABORATORY Specimen Anatomical Collection Method Collection Time Receive d Time (Source) Location / / Volume Laterality Blood specimen 07/07/2017 5:00 PM 017 4:58 (specimen) EST PM EST Daphne Shahid MD BLOOD BANK ORDERABLES Performing Organization Address City/[facility]/ZIP Code Phon e Number [address] Platelet count (07/07/2017 4:55 PM EST) P athologist Signature Platelets 177 145 - 357 [facility] x10(3)/[facility] LABORATORY Plat Immature 1.5 0.0 - 7.4 [facility] % % [facility] LABORATORY Comment: Limitation of the Immature Platelet Frac tion (IPF)-May be less reliable when the platelet count is less than 27v360/u L due to statistical imprecision. The IPF [...] in a decreased state of production. References: [employer] The Clinical Value of the Immature Platelet Fraction (IPF) in Cell Recovery Document Number 10-1143 12/2010 [employer] The Role of the Imm ature [...] Organization Address City/State/[place] [address] (ABNORMAL) Hemoglobin and Hematocrit, blood (07/07/2017 4:55 PM EST) P athologist Signature Hemoglobin 9.1 (L) 13.7 - 16.5 [facility] gm/dL [facility] LABORATORY Comment: This result has been called [...] Organization Address City/State/[place] [address] (ABNORMAL) BLOOD GAS 2 ARTERIAL (07/07/2017 4:38 PM EST) Analysis Performed At Patho logist Time Signature pH Art 7.37 7.35 - [facility] 7.45 [facility] LABORATORY pCO2 Art 44 35 - 45 [facility] mmHg [facility] LABORATORY pO2 Art 322 (H) 85 - 104 [facility] LABORATORY HCO3 Art 24.9 20.0 - [facility] 26.0 [facility] mmol/L [facility] LABORATORY BE Art -0.4 -3.0 - 3.0 [facility] mmol/L [facility] LABORATORY Hgb Blood Gas 10.1 (L) 13.7 - [facility] 16.5 gm/dL [facility] LABORATORY O2HB Art 98.7 (H) 94.0 - [facility] 97.0 % [facility] LABORATORY COHB Art 0.1 % [facility] LABORATORY Comment: Nonsmokers: 0.5-1.5% COHB Smokers: Variable, but usually less than 10% Toxic: 20-30% COHB Lethal: Greater than 60% COHB METHB Art 0.3 <=1.5 % [facility] LABORATORY Na Whole Blood 130 [...] [facility] Comment: Noted by electrical/instrument technician. [...] Address City/State/[place] [address] (ABNORMAL) BLOOD GAS 2 VENOUS (07/07/2017 4:06 PM EST) Analysis Performed At Patho logist Time Signature pH Cody 7.31 (L) 7.32 - [facility] 7.42 [facility] LABORATORY pCO2 Cody 47 41 - 51 [facility] LABORATORY pO2 Cody 53 (H) 25 - 40 [facility] LABORATORY HCO3 Cody 22.7 mmol/L [facility] BE Cody -3.7 mmol/L [facility] LABORATORY Hgb Blood Gas 10.2 (L) 13.7 - [facility] 16.5 gm/dL [facility] LABORATORY O2HB Cody 81.0 % [facility] LABORATORY COHB Cody 1.0 % [facility] LABORATORY Comment: Nonsmokers: 0.5-1.5% COHB Smokers: Variable, but usually less than 10% Toxic: 20-30% COHB Lethal: Greater than 60% COHB METHB Cody 0.3 <=1.5 % [facility] LABORATORY Na Whole Blood 132 [...] [facility] Comment: Noted by electrical/instrument technician. Note: ??Total bilirubin higher than 20 m g/dL may lead to falsely low ionized calcium. CL Whole Blood 100 98 - 107 mmol/L [facility] LABORATORY Gluc Whole Bld 231 (H) 65 - 199 mg/dL [facility] LABORATORY Comment: Diabetes: >=200 mg/dL plus symp toms Lactate WB 1.1 0.5 - 2.2 mmol/L [facility] LABORATORY BGas Source Venous [facility] LABORATORY Specimen Anatomical Collection Method Collection Time Receive d Time (Source) Location / / Volume Laterality Blood specimen 07/07/2017 4:06 PM 017 4:06 (specimen) EST PM EST Daphne Shahid MD CHEMISTRY ORDERABLES Performing Organization Address City/State/[place] [address] (ABNORMAL) BLOOD GAS 2 ARTERIAL (07/07/2017 4:05 PM EST) Analysis Performed At Patho logist Time Signature pH Art 7.36 7.35 - [facility] 7.45 [facility] LABORATORY pCO2 Art 40 35 - 45 [facility] mmHg [facility] LABORATORY pO2 Art 282 (H) 85 - 104 [facility] mmHg [facility] LABORATORY HCO3 Art 22.1 20.0 - [facility] 26.0 [facility] mmol/L [facility] LABORATORY BE Art -3.4 (L) -3.0 - 3.0 [facility] mmol/L [facility] LABORATORY Hgb Blood Gas 10.2 (L) 13.7 - [facility] 16.5 gm/dL [facility] O2HB Art 98.4 (H) 94.0 - [facility] 97.0 % [facility] LABORATORY COHB Art 0.3 % [facility] LABORATORY Comment: Nonsmokers: 0.5-1.5% COHB Smokers: Variable, but usually less than 10% Toxic: 20-30% COHB Lethal: Greater than 60% COHB METHB Art 0.3 <=1.5 % [facility] LABORATORY Na Whole Blood 131 [...] [facility] Comment: Noted by electrical/instrument technician. [...] Address City/State/[place] [address] (ABNORMAL) BLOOD GAS 2 ARTERIAL (07/07/2017 2:29 PM EST) Analysis Performed At Patho logist Time Signature pH Art 7.43 7.35 - [facility] 7.45 [facility] LABORATORY pCO2 Art 36 35 - 45 [facility] HOSPITAL mmHg [facility] LABORATORY pO2 Art 221 (H) 85 - 104 [facility] LABORATORY HCO3 Art 23.2 20.0 - [facility] 26.0 [facility] mmol/L [facility] LABORATORY BE Art -1.2 -3.0 - 3.0 [facility] mmol/L [facility]ORY Hgb Blood Gas 13.9 13.7 - [facility] 16.5 gm/dL [facility] O2HB Art 97.8 (H) 94.0 - [facility] 97.0 % [facility] COHB Art 1.1 % [facility]OR[facility] Comment: Nonsmokers: 0.5-1.5% COHB Smokers: Variable, but usually less than 10% Toxic: 20-30% COHB Lethal: Greater than 60% COHB METHB Art 0.3 <=1.5 % [facility] LABOR[facility]ORY Na Whole Blood 139 [...] Shahid MD CHEMISTRY ORDERABLES Performing Organization Address City/[facility]/ZIP Code Phon e Number [address] Prepare Coag Factors (Non-Hemophilia) (07/07/2017 1:25 PM EST) P athologist Signature Dispensed? Yes [facility] LABORATORY Specimen Anatomical Collection Method Collection Time Receive d Time (Source) Location / / Volume Laterality Blood specimen 07/07/2017 1:25 PM 017 1:21 (specimen) EST PM EST Daphne Shahid MD BLOOD BANK ORDERABLES Performing Organization Address City/[facility]/[place] [address] Prepare RBC (07/07/2017 1:10 PM EST) P athologist Signature Dispensed? Yes [facility]OR[facility] Specimen Anatomical Collection Method Collection Time Receive d Time (Source) Location / / Volume Laterality Blood specimen 07/07/2017 1:10 PM 017 1:05 (specimen) EST PM EST Daphne Shahid MD BLOOD BANK ORDERABLES Performing Organization Address City/[facility]/[place] [address] POCT Glucose (07/07/2017 11:56 AM EST) P athologist Signature POC Glucose 188 65 - 199 [facility] mg/dL [facility] [...] Address City/State/ZIP Code Phon e Number [address] POCT Glucose (07/07/2017 11:05 AM EST) P athologist Signature POC Glucose 168 65 - 199 [place] mg/dL [facility]ORY Comment: Supplemental ranges: <140 mg/dL before meals <180 mg/dL all other times of the day Specimen Anatomical Collection Method Collection Time Receive d Time (Source) Location / / Volume Laterality Blood specimen 07/07/2017 11:05 7 (specimen) AM EST 11:05 AM EST Daphne Shahid MD POINT OF CARE TEST ORDERABLE S Performing Organization Address City/[facility]/ZIP Code Phon e Number [address] POCT Glucose (07/07/2017 10:02 AM EST) P athologist Signature POC Glucose 191 65 - 199 [place] mg/dL [facility] [...] Organization Address City/State/[place] [address] POCT Glucose (07/07/2017 7:53 AM EST) P athologist Signature POC Glucose 178 65 - 199 [place] mg/dL [facility] [...] Address City/State/ZIP Code Phon e Number [address] POCT Glucose (07/07/2017 7:03 AM EST) athologist Signature POC Glucose 188 65 - 199 [facility] Comment: Supplemental ranges: <140 mg/dL before meals <180 mg/dL all other times of the day Specimen Anatomical Collection Method Collection Time Receive d Time (Source) Location / / Volume Laterality Blood specimen 07/07/2017 7:03 AM 017 7:03 (specimen) EST AM EST Daphne Shahid MD POINT OF CARE TEST ORDERABLE S Performing Organization Address City/[facility]/[place] [address] (ABNORMAL) POCT Glucose (07/07/2017 6:17 AM EST) athologist Signature POC Glucose 207 (H) 65 - 199 [facility] mg/dL [facility] Comment: Supplemental ranges: <140 mg/dL before meals <180 mg/dL all other times of the day Specimen Anatomical Collection Method Collection Time Receive d Time (Source) Location / / Volume Laterality Blood specimen 07/07/2017 6:17 AM 017 6:17 (specimen) EST AM EST Daphne Shahid MD POINT OF CARE TEST ORDERABLE S Performing Organization Address City/[facility]/ZIP Code Phon e Number [address] Differential, Automated (07/07/2017 5:15 AM EST) athologist Signature Neutrophils % 69.7 % [facility] Neutr Abs (ANC) 5.32 1.70 - [facility] 6.10 [facility] x10(3)/[facility] LABORATORY Lymphocytes % 16.3 % [facility] LAB[facility] Lymphocytes Abs 1.2 0.9 - 3.2 [facility] x10(3)/[facility] LABORATORY Monocytes % 10.5 % [facility] LABOR[facility]ORY Monocyte Abs 0.8 0.3 - 0.9 [facility] x10(3)/[facility] LABORATORY Eosinophils % 2.5 % [facility] Eosinophils Abs 0.2 0.0 - 0.4 [facility] x10(3)/[facility] LABORATORY Basophils % 0.7 % [facility] Basophils Abs 0.0 0.0 - 0.1 [facility] x10(3)/[facility] LABORATORY Immature Gran % 0.30 % BAR[facility] [...] Gran Abs 0.02 0.00 - 0.04 x10(3)/[facility] Specimen Anatomical Collection Method Collection Time Receive d Time (Source) Location / / Volume Laterality Blood specimen 07/07/2017 5:15 AM 017 5:34 (specimen) EST AM EST Resulting Agency Comment Spec In Lab Daphne Shahid MD HEMATOLOGY ORDERABLES Performing Organization Address City/State/[place] [address] (ABNORMAL) Hemogram (07/07/2017 5:15 AM EST) Analysis Performed At Patho logist Time Signature WBC 7.6 4.0 - 9.5 [facility] x10(3)/[facility] LABORATORY RBC 4.82 4.58 - [facility] 5.54 [facility] x10(6)/[facility] LABORATORY Hemoglobin 14.4 13.7 - [facility] 16.5 gm/dL [facility]ORY Hematocrit 42.1 40.5 - [facility] 48.5 % [facility]ORY MCV 87.3 82.9 - [facility] 93.1 fL [facility]ORY MCH 29.9 27.5 - [facility] 32.1 pg [facility] LABORATORY MCHC 34.2 32.0 - [facility] 35.7 gm/dL [facility]ORY Platelets 188 145 - 357 [facility] x10(3[facility] LABORATORY RDWSD 45.1 (H) 36.0 - [place] 45.0 [facility] LABORATORY RDWCV 14.3 (H) 11.4 - [facility] 13.8 % [facility] LABORATORY MPV 9.4 7.6 - 12.9 [facility] LABORATORY nRBC % Auto 0.0 % [facility] nRBC Abs Auto 0.000 0.000 - [place] DAV[place] 0.000 [facility] x10(3)/[facility] LABORATORY Specimen Anatomical Collection Method Collection Time Receive d Time (Source) Location / / Volume Laterality Blood specimen 07/07/2017 5:15 AM 017 5:34 (specimen) EST AM EST Resulting Agency Comment Spec In Lab Daphne Shahid MD HEMATOLOGY ORDERABLES Performing Organization Address City/[facility]/ZIP Code Phon e Number [address] (ABNORMAL) APTT (07/07/2017 5:15 [...] Address City/State/ZIP Code Phon e Number [address] Magnesium (07/07/2017 5:15 AM EST) P athologist Signature Magnesium 0.94 0.69 - 1.07 [facility] mmol/L [facility]ORY Specimen Anatomical Collection Method Collection Time Receive d Time (Source) Location / / Volume Laterality Blood specimen 07/07/2017 5:15 AM 017 5:34 (specimen) EST AM EST Resulting Agency Comment Spec In Lab Daphne Shahid MD CHEMISTRY ORDERABLES Performing Organization Address City/State/[place] [address] (ABNORMAL) Basic Metabolic Panel (non-fasting) (07/07/2017 5:15 AM EST) athologist Signature Glucose Lvl 203 (H) 65 - 199 [facility] mg/dL [facility]ORY Comment: Diabetes: >=200 mg/dL plus symp toms BUN 15 10 - 20 mg/dL [facility] LABORATORY Creatinine 1.09 0.80 - 1.50 mg/dL [facility] LABORATORY Sodium 142 135 - 145 mmol/L [facility] LABORATORY Potassium 4.4 3.5 - 5.0 mmol/L [facility] [...] or in patients with acute kidney failure. http://[employer]/DHnkdep http://[employer]/DHMCnkf Specimen Anatomical Collection Method Collection Time Receive d Time (Source) Location / / Volume Laterality Blood specimen 07/07/2017 5:15 AM 017 5:34 (specimen) EST AM EST Resulting Agency Comment Spec In Lab Daphne Shahid MD CHEMISTRY ORDERABLES Performing Organization Address City/[facility]/[place] [address] (ABNORMAL) Cardiac Enzymes (LEB/CGP) (07/07/2017 5:15 AM EST) athologist Signature Troponin-T 2.07 (H) 0.00 - [place] 0.00 ng/mL [facility]ORY Comment: The 99th percentile for Troponin [...] additional sample may be indicated. Reference: Third [place] Definition of Myocardial Infarction. Journal of the [place] [employer] 2012;60:1581-98 CK, Total 88 0 - 200 unit/L [facility] LABOR[facility]ORY Specimen Anatomical Collection Method Collection Time Receive d Time (Source) Location / / Volume Laterality Blood specimen 07/07/2017 5:15 AM 017 5:34 (specimen) EST AM EST Resulting Agency Comment Spec In Lab Daphne Shahid MD CHEMISTRY ORDERABLES Performing Organization Address City/[facility]/[place] [address] POCT Glucose (07/07/2017 5:01 AM EST) athologist Signature POC Glucose 182 65 - 199 [place] [facility] mg/dL [facility] [...] Address City/State/ZIP Code Phon e Number [address] POCT Glucose (07/07/2017 4:08 AM EST) athologist Signature POC Glucose 199 65 - 199 [facility] mg/dL [facility] [...] Address City/State/ZIP Code Phon e Number [address] POCT Glucose (07/07/2017 3:03 AM EST) athologist Signature POC Glucose 188 65 - 199 [place] mg/dL [facility] [...] Organization Address City/State/[place] [address] (ABNORMAL) POCT Glucose (07/07/2017 2:08 AM EST) athologist Signature POC Glucose 200 (H) 65 - 199 [facility] mg/dL [facility] [...] Organization Address City/State/[place] [address] (ABNORMAL) POCT Glucose (07/07/2017 1:31 AM EST) athologist Signature POC Glucose 209 (H) 65 - 199 [facility] mg/dL [facility]ORY Comment: Supplemental ranges: <140 mg/dL before meals <180 mg/dL all other times of the day Specimen Anatomical Collection Method Collection Time Receive d Time (Source) Location / / Volume Laterality Blood specimen 07/07/2017 1:31 AM 017 1:31 (specimen) EST AM EST Daphne Shahid MD POINT OF CARE TEST ORDERABLE S Performing Organization Address City/[facility]/[place] [address] XR Chest PA or [...] POC Glucose 161 65 - 199 [facility] mg/dL [facility] [...] Address City/State/ZIP Code Phon e Number [address] (ABNORMAL) APTT (07/07/2017 12:00 [...] Address City/State/ZIP Code Phon e Number [address] POCT Glucose (07/06/2017 9:55 PM EST) athologist Signature POC Glucose 109 65 - 199 [facility] mg/dL [facility] [...] Address City/State/ZIP Code Phon e Number [address] POCT Glucose (07/06/2017 9:04 PM EST) athologist Signature POC Glucose 120 65 - 199 [facility] mg/dL [facility] [...] Address City/State/ZIP Code Phon e Number [address] POCT Glucose (07/06/2017 7:45 PM EST) athologist Signature POC Glucose 158 65 - 199 [facility] mg/dL [facility] [...] Organization Address City/State/[place] [address] Potassium (07/06/2017 7:40 PM EST) athologist Signature Potassium 3.9 3.5 - 5.0 [facility] mmol/L [facility]ORY Comment: Please note: ??Patients with WBC [...] Organization Address City/State/ZIP Code Phon e Number [place] [id number] HOSPITAL [address]ORY Drive (ABNORMAL) Cardiac Enzymes (LEB/CGP) (07/06/2017 7:40 PM EST) athologist Signature Troponin-T 2.27 (H) 0.00 - [place] 0.00 ng/mL [facility] Comment: The 99th percentile for Troponin [...] additional sample may be indicated. Reference: Third [place] Definition of Myocardial Infarction. Journal of the [place] [employer] 2012;60:1581-98 CK, Total 93 0 - 200 unit/L [facility] Specimen Anatomical Collection Method Collection Time Receive d Time (Source) Location / / Volume Laterality Blood specimen 07/06/2017 7:40 PM 017 7:52 (specimen) EST PM EST Resulting Agency Comment Spec In Lab Daphne Shahid MD CHEMISTRY ORDERABLES Performing Organization Address City/[facility]/[place] [address] (ABNORMAL) POCT Glucose (07/06/2017 7:13 PM EST) P athologist Signature POC Glucose 200 (H) 65 - 199 [facility] mg/dL [facility]ORY Comment: Supplemental ranges: <140 mg/dL before meals <180 mg/dL all other times of the day Specimen Anatomical Collection Method Collection Time Receive d Time (Source) Location / / Volume Laterality Blood specimen 07/06/2017 7:13 PM 017 7:13 (specimen) EST PM EST Daphne Shahid MD POINT OF CARE TEST ORDERABLE S Performing Organization Address City/[facility] [place] [address] (ABNORMAL) APTT (07/06/2017 6:15 [...] Shahid MD HEMATOLOGY ORDERABLES Performing Organization Address City/[facility]/ZIP Code Phon e Number [address] (ABNORMAL) POCT Glucose (07/06/2017 6:03 PM EST) athologist Signature POC Glucose 236 (H) 65 - 199 [facility] mg/dL [facility] [...] Organization Address City/State/[place] [address] (ABNORMAL) POCT Glucose (07/06/2017 5:01 PM EST) athologist Signature POC Glucose 235 (H) 65 - 199 [facility] mg/dL [facility] [...] Organization Address City/State/[place] [address] (ABNORMAL) POCT Glucose (07/06/2017 4:06 PM EST) athologist Signature POC Glucose 202 (H) 65 - 199 [facility] mg/dL [facility] [...] Organization Address City/State/[place] [address] POCT Glucose (07/06/2017 2:59 PM EST) athologist Signature POC Glucose 178 65 - 199 [facility] mg/dL [facility] [...] Organization Address City/State/ZIP Code Phon e Number [place] [id number] [facility] LABOR[address]ORY Drive (ABNORMAL) Cardiac Enzymes (LEB/CGP) (07/06/2017 2:10 PM EST) athologist Signature Troponin-T 2.34 (H) 0.00 - [facility] 0.00 ng/mL [facility]ORY Comment: The 99th percentile for Troponin [...] additional sample may be indicated. Reference: Third [place] Definition of Myocardial Infarction. Journal of the [place] [employer]iology 2012;60:1581-98 CK, Total 101 0 - 200 unit/L [facility] LABOR[facility]ORY Specimen Anatomical Collection Method Collection Time Receive d Time (Source) Location / / Volume Laterality Blood specimen 07/06/2017 2:10 PM 017 2:26 (specimen) EST PM EST Resulting Agency Comment Spec In Lab Daphne Shahid MD CHEMISTRY ORDERABLES Performing Organization Address City/State/ZIP Code Phon e Number [address] POCT Glucose (07/06/2017 2:08 PM EST) athologist Signature POC Glucose 192 65 - 199 [place] mg/dL [facility] [...] Address City/State/ZIP Code Phon e Number [address] POCT Glucose (07/06/2017 1:04 PM EST) athologist Signature POC Glucose 162 65 - 199 [facility] mg/dL [facility] [...] Address City/State/ZIP Code Phon e Number [address] POCT Glucose (07/06/2017 12:05 PM EST) athologist Signature POC Glucose 196 65 - 199 [facility] mg/dL [facility] LAB[facility]ORY Comment: Supplemental ranges: <140 mg/dL before meals <180 mg/dL all other times of the day Specimen Anatomical Collection Method Collection Time Receive d Time (Source) Location / / Volume Laterality Blood specimen 07/06/2017 12:05 7 (specimen) PM EST 12:05 PM EST Daphne Shahid MD POINT OF CARE TEST ORDERABLE S Performing Organization Address [facility]/[place]IP [place] [address] EKG 12 Lead (07/06/2017 12:00 PM EST) Component Value Ref Range Test Analysis Performed Pathologis t Method Time At Signature Ventricular rate 91 BPM MUSE SYSTEM Atrial Rate 91 BPM MUSE SYSTEM P-R Interval 140 ms MUSE SYSTEM QRS Duration 94 ms MUSE SYSTEM Q-T Interval 394 ms MUSE SYSTEM QTC Calculated 484 ms MUSE SYSTEM (Bezet) Calculated P [place] 36 degrees MUSE SYSTEM Calculated R [place] -19 degrees MUSE SYSTEM Calculated T [place] 104 degrees MUSE SYSTEM INTERPRETATION Normal sinus rhythm MUSE SYSTEM 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) ST & T wave abnormality, consider lateral ischemia Abnormal ECG When compared with ECG of 05-JUL-2017 20:39, No significant change was found Confirmed by MD Luci, Taurus Braun ([id number]) on 07/06/2017 5:07:33 PM Specimen Anatomical Collection Method Collection Time Receive d Time (Source) Location / / Volume Laterality 07/06/2017 12:00 07/06/2017 5:07 PM EST PM EST Daphne Shahid MD ECG ORDERABLES Performing Organization Address [facility]/ZIP Code Phon e Number MUSE SYSTEM ABORH Recheck Status (07/06/2017 12:00 PM EST) [facility] Method Time Signature ABORH Type Completed [facility] LABORATORY Specimen Anatomical Collection Method Collection Time Receive d Time (Source) Location / / Volume Laterality Blood specimen 07/06/2017 12:00 7 (specimen) PM EST 12:24 PM EST Resulting Agency Comment Spec In Lab Daphne Shahid MD BLOOD BANK ORDERABLES Performing Organization Address [facility]/[place] [address] Antibody screen (07/06/2017 12:00 PM EST) [facility] Method Time Signature Ab Screen Negative [facility] LABORATORY Expires at 07/09/2017 [facility] [id number] on: [facility] LABORATORY Specimen Anatomical Collection Method Collection Time Receive d Time (Source) Location / / Volume Laterality Blood specimen 07/06/2017 12:00 7 (specimen) PM EST 12:24 PM EST Resulting Agency Comment Spec In Lab Daphne Shahid MD BLOOD BANK ORDERABLES Performing Organization Address City/[facility]/[place] [address] ABO/Rh Typing (07/06/2017 12:00 PM EST) P athologist Signature ABORh Type O Pos [facility] LABORATORY Specimen Anatomical Collection Method Collection Time Receive d Time (Source) Location / / Volume Laterality Blood specimen 07/06/2017 12:00 7 (specimen) PM EST 12:24 PM EST Resulting Agency Comment Spec In Lab Daphne Shahid MD BLOOD BANK ORDERABLES Performing Organization Address City/[facility] [place] [address] Prothrombin Time (07/06/2017 11:24 [...] Shahid MD HEMATOLOGY ORDERABLES Performing Organization Address City/[facility]/ZIP Code Phon e Number [address] (ABNORMAL) APTT (07/06/2017 11:24 [...] Shahid MD HEMATOLOGY ORDERABLES Performing Organization Address City/[facility] Phon e Number [address] POCT Glucose (07/06/2017 11:02 AM EST) athologist Signature POC Glucose 187 65 - 199 [facility] mg/dL [facility] LABORATORY Comment: Supplemental ranges: <140 mg/dL before meals <180 mg/dL all other times of the day Specimen Anatomical Collection Method Collection Time Receive d Time (Source) Location / / Volume Laterality Blood specimen 07/06/2017 11:02 7 (specimen) AM EST 11:02 AM EST Daphne Shahid MD POINT OF CARE TEST ORDERABLE S Performing Organization Address City/[facility]/[place] [address] POCT Glucose (07/06/2017 10:18 AM EST) athologist Signature POC Glucose 193 65 - 199 [facility] mg/dL [facility] [...] Address City/State/[place] [address] POCT Glucose (07/06/2017 9:25 AM EST) athologist Signature POC Glucose 182 65 - 199 [facility] [...] Address City/State/ZIP Code Phon e Number [address] (ABNORMAL) Cardiac Enzymes (LEB/CGP) (07/06/2017 8:10 AM EST) athologist [employer] Troponin-T 2.26 (H) 0.00 - [facility] ng/mL [facility]ORY Comment: The 99th percentile for Troponin [...] additional sample may be indicated. Reference: Third [place] Definition of Myocardial Infarction. Journal of the [place] [employer] 2012;60:1581-98 CK, Total 124 0 - 200 unit/L [facility] LABORATORY Specimen Anatomical Collection Method Collection Time Receive d Time (Source) Location / / Volume Laterality Blood specimen 07/06/2017 8:10 AM 017 8:23 (specimen) EST AM EST Resulting Agency Comment Spec In Lab Daphne Shahid MD CHEMISTRY ORDERABLES Performing Organization Address City/[facility]/ZIP Code Phon e Number [address] Magnesium (07/06/2017 8:10 AM EST) P athologist Signature Magnesium 0.84 0.69 - 1.07 [facility] mmol/L [facility] LABORATORY Specimen Anatomical Collection Method Collection Time Receive d Time (Source) Location / / Volume Laterality Blood specimen 07/06/2017 8:10 AM 017 8:21 (specimen) EST AM EST Resulting Agency Comment Spec In Lab Daphne Shahid MD CHEMISTRY ORDERABLES Performing Organization Address City/[facility]/ZIP Code Phon e Number [address] (ABNORMAL) Basic Metabolic Panel (non-fasting) (07/06/2017 8:10 AM EST) P athologist Signature Glucose Lvl 199 65 - 199 [facility] mg/dL [facility] [...] or in patients with acute kidney failure. http://[employer]/DHnkdep http://[employer]/DHMCnkf Specimen Anatomical Collection Method Collection Time Receive d Time (Source) Location / / Volume Laterality Blood specimen 07/06/2017 8:10 AM 017 8:21 (specimen) EST AM EST Resulting Agency Comment Spec In Lab Daphne Shahid MD CHEMISTRY ORDERABLES Performing Organization Address City/[facility]/ZIP Code Phon e Number [address] POCT Glucose (07/06/2017 7:34 AM EST) athologist Signature POC Glucose 198 65 - 199 [facility] [...] Address City/State/ZIP Code Phon e Number [address] POCT Glucose (07/06/2017 7:03 AM EST) athologist Signature POC Glucose 181 65 - 199 [facility]/dL [facility] [...] Organization Address City/State/ZIP Code Phon e Number [place] [id number]OSP[address] XR Chest PA or [...] Signature POC Glucose 172 65 - 199 [facility] [place] mg/dL [facility] Address City/State/ZIP Code Phon e Number [address] POCT Glucose (07/06/2017 5:08 AM EST) athologist Signature POC Glucose 154 65 - 199 [facility] mg/dL [facility] [...] Organization Address City/State/[place] [address] POCT Glucose (07/06/2017 4:05 AM EST) athologist Signature POC Glucose 142 65 - 199 [facility] mg/dL [facility] [...] Organization Address City/State/[place] [address] POCT Glucose (07/06/2017 3:00 AM EST) athologist [facility] POC Glucose 116 65 - 199 [facility] mg/dL [facility] LABORATORY Comment: Supplemental ranges: <140 mg/dL before meals <180 mg/dL all other times of the day Specimen Anatomical Collection Method Collection Time Receive d Time (Source) Location / / Volume Laterality Blood specimen 07/06/2017 3:00 AM 017 3:00 (specimen) EST AM EST Daphne Shahid MD POINT OF CARE TEST ORDERABLE S Performing Organization Address City/[facility] Phon e Number [address] Potassium (07/06/2017 2:20 AM EST) [facility] Potassium 3.9 3.5 - 5.0 [facility] mmol/L [facility] LABORATORY Comment: Please note: ??Patients with WBC [...] Shahid MD CHEMISTRY ORDERABLES Performing Organization Address City/[facility] Phon e Number [address] Differential, Automated (07/06/2017 2:20 AM EST) [facility]ils % 72.9 % [facility] LABORATORY Neutr Abs (ANC) 5.53 1.70 - [facility] 6.10 [facility] x10(3)/[facility] LABORATORY Lymphocytes % 16.4 % [facility] LABORATORY Lymphocytes Abs 1.2 0.9 - 3.2 [facility] x10(3)/[facility] LABORATORY Monocytes % 9.4 % [facility] LABORATORY Monocyte Abs 0.7 0.3 - 0.9 [facility] x10(3)/[facility] LABORATORY Eosinophils % 0.5 % [facility] LABORATORY Eosinophils Abs 0.0 0.0 - 0.4 [facility] x10(3)/[facility] LABORATORY Basophils % 0.4 % [facility] LABORATORY Basophils Abs 0.0 0.0 - 0.1 [facility] x10(3)/[facility] LABORATORY Immature Gran % 0.40 % [facility] [...] Gran Abs 0.03 0.00 - 0.04 x10(3)/[facility] MAR Y [facility] LABORATORY Specimen Anatomical Collection Method Collection Time Receive d Time (Source) Location / / Volume Laterality Blood specimen 07/06/2017 2:20 AM 017 2:33 (specimen) EST AM EST Resulting Agency Comment Spec In Lab Daphne Shahid MD HEMATOLOGY ORDERABLES Performing Organization Address City/State/[place] [address] (ABNORMAL) Hemogram (07/06/2017 2:20 AM EST) Analysis Performed At Patho logist Time Signature WBC 7.6 4.0 - 9.5 [facility] x10(3)/[facility] LABORATORY RBC 4.52 (L) 4.58 - [facility] 5.54 [facility] x10(6)/[facility] LABORATORY Hemoglobin 13.4 (L) 13.7 - [facility] 16.5 gm/dL [facility] LABORATORY Hematocrit 39.7 (L) 40.5 - [facility] 48.5 % [facility] LABORATORY MCV 87.8 82.9 - [facility] 93.1 fL [facility] LABORATORY MCH 29.6 27.5 - [facility] 32.1 pg [facility] LABORATORY MCHC 33.8 32.0 - [facility] 35.7 gm/dL [facility] LABORATORY Platelets 189 145 - 357 [facility] x10(3)/[facility] LABORATORY RDWSD 45.6 (H) 36.0 - [facility] 45.0 [facility] LABORATORY RDWCV 14.3 (H) 11.4 - [facility] 13.8 % [facility] LABORATORY MPV 9.1 7.6 - 12.9 [facility] LABORATORY nRBC % Auto 0.0 % [facility] LABORATORY nRBC Abs Auto 0.000 0.000 - [facility] 0.000 [facility] x10(3)/[facility] LABORATORY Specimen Anatomical Collection Method Collection Time Receive d Time (Source) Location / / Volume Laterality Blood specimen 07/06/2017 2:20 AM 017 2:33 (specimen) EST AM EST Resulting Agency Comment Spec In Lab Daphne Shahid MD HEMATOLOGY ORDERABLES Performing Organization Address City/[facility]/ZIP Code Phon e Number [address] (ABNORMAL) APTT (07/06/2017 2:20 [...] Shahid MD HEMATOLOGY ORDERABLES Performing Organization Address City/[facility]/ZIP Code Phon e Number [address] POCT Glucose (07/06/2017 2:20 AM EST) P athologist Signature POC Glucose 115 65 - 199 [facility] mg/dL [facility] LABORATORY Comment: Supplemental ranges: <140 mg/dL before meals <180 mg/dL all other times of the day Specimen Anatomical Collection Method Collection Time Receive d Time (Source) Location / / Volume Laterality Blood specimen 07/06/2017 2:20 AM 017 2:20 (specimen) EST AM EST Daphne Shahid MD POINT OF CARE TEST ORDERABLE S Performing Organization Address City/[facility]/[place] [address] (ABNORMAL) Cardiac Enzymes (LEB/CGP) (07/06/2017 2:20 AM EST) athologist Signature Troponin-T 2.13 (H) 0.00 - [facility] 0.00 ng/mL [facility] LABORATORY Comment: The 99th percentile for Troponin [...] additional sample may be indicated. Reference: Third [place] Definition of Myocardial Infarction. Journal of the [place] [employer] 2012;60:1581-98 CK, Total 129 0 - 200 unit/L [facility] LABORATORY Specimen Anatomical Collection Method Collection Time Receive d Time (Source) Location / / Volume Laterality Blood specimen 07/06/2017 2:20 AM 017 2:33 (specimen) EST AM EST Resulting Agency Comment Spec In Lab Daphne Shahid MD CHEMISTRY ORDERABLES Performing Organization Address City/State/[place] [address] (ABNORMAL) Hemoglobin A1c (07/06/2017 2:20 AM EST) Analysis Performed At [facility] Time Signature Hemoglobin A1C 6.8 (H) 4.3 - 5.[address] [facility] LABORATORY Comment: Reference Range: 4.3 - [...] Mellitus, Diabetes Care 2013; 36: Suppl. 1, O77-52 Est Avg Gluc See note mg/dL [facility] LABORATORY Comment: Estimated Average Glucose [...] into estimated average glucose values. ??Diabetes Care 2008:31(8):8207-4864. Specimen Anatomical Collection Method Collection Time Receive d Time (Source) Location / / Volume Laterality Blood specimen 07/06/2017 2:20 AM 017 2:34 (specimen) EST AM EST Resulting Agency Comment Spec In Lab Daphne Shahid MD CHEMISTRY ORDERABLES Performing Organization Address City/State/[place] [address] (ABNORMAL) Lipid Panel (07/06/2017 2:20 AM EST) [facility] gist Method Time Signature Chol, Total 150 <=239 [facility] mg/dL [facility] LABORATORY Triglycerides 129 <=199 [facility] mg/dL [facility] LABORATORY HDL 32 (L) >=40 [facility] mg/dL [facility] LABORATORY LDL Cholesterol 92 <=190 [facility] mg/dL [facility] LABORATORY Chol/HDL Ratio 4.7 ratio [facility] LABORATORY Lipid See Note KATALINA Interpretation [facility] LABORATORY Comment: Lipid management should be guided by a p atient? s ASCVD risk, goals and preferences. ACC/AHA Guidelines recommend high intens ity statin if clinical ASCVD or LDL greater than or equal to 190 mg/dL. http://[employer].com/VAU-NYS-Ajooptqdu Adults aged 40-75 with LDL 70-189 mg/dL should have their 10 year ASCVD risk estimated with the ACC/AHA ASCVD risk es timator http://tools.acc.org/VEOFP-Fhso-Siotbbmi r/ Statin should be discussed if risk [...] Shahid MD CHEMISTRY ORDERABLES Performing Organization Address City/[facility]/ZIP Code Phon e Number [address] POCT Glucose (07/06/2017 1:09 AM EST) P athologist Signature POC Glucose 121 65 - 199 [facility] mg/dL [facility] LABORATORY Comment: Supplemental ranges: <140 mg/dL before meals <180 mg/dL all other times of the day Specimen Anatomical Collection Method Collection Time Receive d Time (Source) Location / / Volume Laterality Blood specimen 07/06/2017 1:09 AM 017 1:09 (specimen) EST AM EST Daphne Shahid MD POINT OF CARE TEST ORDERABLE S Performing Organization Address City/[facility]/ZIP Code Phon e Number [address] POCT Glucose (07/06/2017 12:06 AM EST) P athologist Signature POC Glucose 147 65 - 199 [facility] mg/dL [facility] CARE TEST ORDERABLE S Performing Organization Address City/[facility]/ZIP Code Phon e Number [address] (ABNORMAL) POCT Glucose (07/05/2017 10:56 PM EST) P athologist Signature POC Glucose 200 (H) 65 - 199 [facility] mg/dL [facility] [...] Organization Address City/State/[place] [address] (ABNORMAL) POCT Glucose (07/05/2017 10:05 PM EST) P athologist Signature POC Glucose 225 (H) 65 - 199 [facility] mg/dL [facility] LABORATORY Comment: Supplemental ranges: <140 mg/dL before meals <180 mg/dL all other times of the day Specimen Anatomical Collection Method Collection Time Receive d Time (Source) Location / / Volume Laterality Blood specimen 07/05/2017 10:05 7 (specimen) PM EST 10:05 PM EST Daphne Shahid MD POINT OF CARE TEST ORDERABLE S Performing Organization Address City/[facility]/[place] [address] (ABNORMAL) POCT Glucose (07/05/2017 9:02 PM EST) athologist Signature POC Glucose 301 (H) 65 - 199 [facility] mg/dL [facility] [...] Organization Address City/State/[place] [address] XR Chest PA or [...] 474 ms MUSE SYSTEM (Bezet) Calculated P [place] 50 degrees MUSE SYSTEM Calculated R [place] -28 degrees MUSE SYSTEM Calculated T [place] 90 degrees MUSE SYSTEM INTERPRETATION Sinus tachycardia [...] (ABNORMAL) Differential, Automated (07/05/2017 8:20 PM EST) [facility] Method Time Signature Neutrophils % 88.4 % [facility] LABORATORY Neutr Abs (ANC) 9.08 (H) 1.70 - [facility] 6.10 [facility] x10(3)/[facility] L LABORATORY Lymphocytes % 7.0 % [facility] LABORATORY Lymphocytes Abs 0.7 (L) 0.9 - 3.2 [facility] x10(3)/[facility] LABORATORY Monocytes % 3.7 % [facility] LABORATORY Monocyte Abs 0.4 0.3 - 0.9 [facility] x10(3)/[facility] LABORATORY Eosinophils % 0.1 % [facility] LABORATORY Eosinophils Abs 0.0 0.0 - 0.4 [facility] x10(3)/[facility] LABORATORY Basophils % 0.2 % [facility] LABORATORY Basophils Abs 0.0 0.0 - 0.1 [facility] x10(3)/[facility] LABORATORY Immature Gran % 0.60 % [facility] [...] Abs 0.06 (H) 0.00 - 0.04 x10(3)/[facility] LABORATORY Specimen Anatomical Collection Method Collection Time Receive d Time (Source) Location / / Volume Laterality Blood specimen 07/05/2017 8:20 PM 017 8:27 (specimen) EST PM EST Resulting Agency Comment Spec In Lab Daphne Shahid MD HEMATOLOGY ORDERABLES Performing Organization Address City/State/[place] [address] (ABNORMAL) Hemogram (07/05/2017 8:20 PM EST) Analysis Performed At Patho logist Time Signature WBC 10.3 (H) 4.0 - 9.5 [facility] x10(3)/[facility] LABORATORY RBC 4.64 4.58 - [facility] 5.54 [facility] x10(6)/[facility] LABORATORY Hemoglobin 14.1 13.7 - [facility] 16.5 gm/dL [facility] LABORATORY Hematocrit 40.8 40.5 - [facility] 48.5 % [facility] LABORATORY MCV 87.9 82.9 - [facility] 93.1 [facility] LABORATORY MCH 30.4 27.5 - [facility] 32.1 pg [facility] LABORATORY MCHC 34.6 32.0 - [facility] 35.7 gm/dL [facility] LABORATORY Platelets 204 145 - 357 [facility] x10(3)/[facility] LABORATORY RDWSD 46.1 (H) 36.0 - [facility] 45.0 [facility] LABORATORY RDWCV 14.5 (H) 11.4 - [facility] 13.8 % [facility] LABORATORY MPV 9.7 7.6 - 12.9 [facility] LABORATORY nRBC % Auto 0.0 % [facility] LABORATORY nRBC Abs Auto 0.000 0.000 - [facility] 0.000 [facility] x10(3)/[facility] LABORATORY Specimen Anatomical Collection Method Collection Time Receive d Time (Source) Location / / Volume Laterality Blood specimen 07/05/2017 8:20 PM 017 8:27 (specimen) EST PM EST Resulting Agency Comment Spec In Lab Daphne Shahid MD HEMATOLOGY ORDERABLES Performing Organization Address City/State/[place] [address] APTT (07/05/2017 8:20 PM [...] Address City/State/[place] [address] (ABNORMAL) Cardiac Enzymes (LEB/CGP) (07/05/2017 8:20 PM EST) athologist Signature Troponin-T 2.11 (H) 0.00 - [facility] 0.00 ng/mL [facility] LABORATORY Comment: The 99th percentile for Troponin [...] additional sample may be indicated. Reference: Third [place] Definition of Myocardial Infarction. Journal of the [place] [employer] of Cardiology 2012;60:1581-98 CK, Total 149 0 - 200 unit/L [facility] LABORATORY Specimen Anatomical Collection Method Collection Time Receive d Time (Source) Location / / Volume Laterality Blood specimen 07/05/2017 8:20 PM 017 8:27 (specimen) EST PM EST Resulting Agency Comment Spec In Lab Daphne Shahid MD CHEMISTRY ORDERABLES Performing Organization Address City/State/ZIP Code Phon e Number [address] (ABNORMAL) Magnesium (07/05/2017 8:20 PM EST) P athologist Signature Magnesium 0.68 (L) 0.69 - 1.07 [facility] mmol/L [facility] LABORATORY Specimen Anatomical Collection Method Collection Time Receive d Time (Source) Location / / Volume Laterality Blood specimen 07/05/2017 8:20 PM 017 8:27 (specimen) EST PM EST Resulting Agency Comment Spec In Lab Daphne Shahid MD CHEMISTRY ORDERABLES Performing Organization Address City/[facility]/ZIP Code Phon e Number [address] (ABNORMAL) Basic Metabolic Panel (non-fasting) (07/05/2017 8:20 PM EST) athologist Signature Glucose Lvl 321 (H) 65 - 199 [facility] mg/dL [facility] LABORATORY Comment: Diabetes: >=200 mg/dL plus symp toms BUN 20 10 - 20 mg/dL [facility] LABORATORY Creatinine 1.12 0.80 - 1.50 mg/dL [facility] LABORATORY Sodium 139 135 - 145 mmol/L [facility] LABORATORY Potassium 3.8 3.5 - 5.0 mmol/L [facility] [...] or in patients with acute kidney failure. http://Bruxie.BlaBlaCar/DHnkdep http://[employer]/DHMCnkf Specimen Anatomical Collection Method Collection Time Receive d Time (Source) Location / / Volume Laterality Blood specimen 07/05/2017 8:20 PM 017 8:27 (specimen) EST PM EST Resulting Agency Comment Spec In Lab Daphne Shahid MD CHEMISTRY ORDERABLES Performing Organization Address City/State/ZIP Code Phon e Number [address] (ABNORMAL) POCT Glucose (07/05/2017 7:32 PM EST) P athologist Signature POC Glucose 296 (H) 65 - 199 [facility] mg/dL [facility] [...] Organization Address City/State/[place] [address] CARDIAC CATHETERIZATION (07/05/2017 6:47 PM EST) Specimen (Source) Anatomical Location Collection Method / Collectio n Time Received Time / Laterality Volume Narrative CARDIOMAC SYSTEM - 07/05/2017 7:27 PM ES T ?[facility] ? Cardiac Cathete rization/Intervention Report ? Patient Name: Gregory Hoang ? Procedure Date: 07/05/2017 ? A #: [id number] ? Primary Physician: Clarisa, Jet T ? Case #: [id number] ? File Name: [id number] ? Catheterization Order Number: [id number] ? [facility] ? Final Report [place], [place] ? Patient Name: ? Gregory Natalya ?ID#: ?[id number] ? : ?1945 ? Procedure Date: ? June 11 17 ?Case #: ? [id number] ? Room: ? 6 ? Case Physician: [...] presented with: non -STEMI (w/i 7 days). [place] ?Cardiovascular Society angina c lass was IV. 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 ? Jet Mckenna M.D. ? Electronically Signed by: Jet bunch M.D. ? Report Finalized: 07/05/2017 ??19:23 ? Report Last Ammended: 10/26/2017 ??10:29 ? Procedure Note Jet Mckenna MD - 10/26/2017Formatt ing of this note might be different from the original. [facility] Cardiac Catheterization/Intervention Re port Patient Name: Gregory Hoang Procedure Date: 07/05/2017 A #: [id number] Primary Physician: Jet Mckenna Case #: [id number] File Name: [id number] Catheterization Order Number: [id number] [facility] Final Report [place], [place] Patient Name: Gregory Hoang ID#: [id number] : 1945 Procedure Date: July 05, [...] presented with: non-STEMI ( w/i 7 days). [place] [employer] angina class was IV. 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 Jet Mckenna M.D. Electronically Signed by: Jet [...] Mccollum ? (Age): 1945(72y) Med Rec#: ? [id number] ?Sex: ?M ? Site Loc: ? [facility] ?Ht / Wt: ??173(cm)/86(kg) Pt. Loc: ?CCU ? BSA: ?2 Study Date: ?? 07/05/2017 ?Pt. Type: Inpatient Tape: ? Referring: Daphne Shahid ([id number]) Referring: MANDA ALCANTAR Reading: Blade Preston ([id number]) Technical Assoc: Dayami Paula BA, [facility] Diagnosis: *ICD-10-PCS Non-ST elevation (NSTEMI) m [...] E-wave Vmax ?0.8 ?m/sec ? MV deceleration [id number] ?msec ? MV A-wave Vmax ?0.8 ?m/sec [...] ? Mid-Inferior ?Akinetic ? Mid-Inferoseptal ?Hypokinetic ? [place]-Septal ? Akinetic ? [place]-Anterior ? Hypokinetic ? [place]-Lateral ?Hypokinetic ? [place]-Inferior ? Akinetic ? [place]-Tip ?Akinetic ? This report has been electronically sign ed by: _ Blade Preston MD ? 07/06/2017 08 :53:15 Images reviewed and interpretation verif ied [facility] Cardiac Ultrasound Laboratory Procedure Note Blade Preston MD - 07/06/2017Formatt ing of this note might be different from the original. Procedure: Transthoracic Echocardiogram Patient: NATALYA MCBRIDE(Age): [birth year]72y) Med Rec#: [id number] Sex: M Site Loc: [facility] Ht / Wt: 173(cm)/86(kg) Pt. Loc: CCU BSA: 2 Study Date: 07/05/2017 Pt. Type: Inpatie nt Tape: Referring: Daphne Shahid ([id number]) Referring: MANDA ALCANTAR Reading: Blade Preston ([id number]) Technical Assoc: Dayami Paula BA, [facility] Diagnosis: *ICD-10-PCS Non-ST elevation (NSTEMI) m [...] MV E-wave Vmax 0.8 m/sec MV deceleration [id number] msec MV A-wave Vmax 0.8 m/sec MV [...] Hypokinetic Mid-Posterolateral Hypokinetic Mid-Inferior Akinetic Mid-Inferoseptal Hypokinetic [place]-Septal Akinetic [place]-Anterior Hypokinetic [place]-Lateral Hypokinetic [place]-Inferior Akinetic [place]-Tip Akinetic This report has been electronically sign ed by: _ Blade Preston MD 07/06/2017 08:53:15 Images reviewed and interpretation verif ied [facility] Cardiac Ultrasound Laboratory Daphne Shahid MD ECHO ORDERABLES Performing Organization Address City/State/ZIP Code Phon e Number [facility] Differential, Automated (07/05/2017 4:55 PM EST) P athologist Signature Neutrophils % 77.0 % [facility] LABORATORY Neutr Abs (ANC) 5.26 1.70 - [facility] 6.10 [facility] x10(3)/[facility] LABORATORY Lymphocytes % 13.3 % [facility] LABORATORY Lymphocytes Abs 0.9 0.9 - 3.2 [facility] x10(3)/[facility] LABORATORY Monocytes % 8.2 % [facility] LABORATORY Monocyte Abs 0.6 0.3 - 0.9 [facility] x10(3)/[facility] LABORATORY Eosinophils % 0.7 % [facility] LABORATORY Eosinophils Abs 0.0 0.0 - 0.4 [facility] x10(3)/[facility] LABORATORY Basophils % 0.4 % [facility] LABORATORY Basophils Abs 0.0 0.0 - 0.1 [facility] x10(3)/[facility] LABORATORY Immature Gran % 0.40 % [facility] [...] Gran Abs 0.03 0.00 - 0.04 x10(3)/[facility] MAR Y [facility] LABORATORY Specimen Anatomical Collection Method Collection Time Receive d Time (Source) Location / / Volume Laterality Blood specimen 07/05/2017 4:55 PM 017 5:24 (specimen) EST PM EST Resulting Agency Comment Spec In Lab Daphne Shahid MD HEMATOLOGY ORDERABLES Performing Organization Address City/State/[place] [address] (ABNORMAL) Hemogram (07/05/2017 4:55 PM EST) Analysis Performed At Patho logist Time Signature WBC 6.8 4.0 - 9.5 [facility] x10(3)/[facility] LABORATORY RBC 4.67 4.58 - [facility] [facility] 5.54 [facility] x10(6)/[facility] LABORATORY Hemoglobin 14.0 13.7 - [facility] 16.5 gm/dL [facility] LABORATORY Hematocrit 41.0 40.5 - [facility] 48.[facility] % [facility] LABORATORY MCV 87.8 82.9 - [facility] 93.1 fL [facility] LABORATORY MCH 30.0 27.5 - [facility] 32.1 pg [facility] MCHC 34.1 32.0 - [facility] 35.7 gm/dL [facility] LABORATORY Platelets 197 145 - 357 [place] x10(3)/[facility] LABORATORY RDWSD 46.4 (H) 36.0 - [place] 45.0 [facility] LABORATORY RDWCV 14.5 (H) 11.4 - [place] 13.8 % [facility] LABORATORY MPV 9.7 7.6 - 12.9 [place] [facility] LABORATORY nRBC % Auto 0.0 % [facility] LABORATORY nRBC Abs Auto 0.000 0.000 - [facility] 0.000 [facility] x10(3)/[facility] LABORATORY Specimen Anatomical Collection Method Collection Time Receive d Time (Source) Location / / Volume Laterality Blood specimen 07/05/2017 4:55 PM 017 5:24 (specimen) EST PM EST Resulting Agency Comment Spec In Lab Daphne Shahid MD HEMATOLOGY ORDERABLES Performing Organization Address City/State/ZIP Code Phon e Number [facility] [place] [address] (ABNORMAL) Cardiac Enzymes (LEB/CGP) (07/05/2017 4:55 PM EST) P athologist Signature Troponin-T 1.69 (H) 0.00 - [place] [facility] 0.00 ng/mL [facility] LABORATORY Comment: The 99th percentile for Troponin [...] additional sample may be indicated. Reference: Third [place] Definition of Myocardial Infarction. Journal of the [place] [employer] 2012;60:1581-98 CK, Total 191 0 - 200 unit/L [facility] LABORATORY Specimen Anatomical Collection Method Collection Time Receive d Time (Source) Location / / Volume Laterality Blood specimen 07/05/2017 4:55 PM 017 5:56 (specimen) EST PM EST Resulting Agency Comment Spec In Lab Daphne Shahid MD CHEMISTRY ORDERABLES Performing Organization Address City/[facility] [place] [address] (ABNORMAL) pro-Brain Natriuretic Peptide (07/05/2017 4:55 PM EST) P athologist Signature ProBNP 1,598 (H) <=125 [facility] pg[facility]mL [facility] LABORATORY Specimen Anatomical Collection Method Collection Time Receive d Time (Source) Location / / Volume Laterality Blood specimen 07/05/2017 4:55 PM 017 5:24 (specimen) EST PM EST Resulting Agency Comment Spec In Lab Daphne Shahid MD CHEMISTRY ORDERABLES Performing Organization Address City/[facility] [place] [address] Magnesium (07/05/2017 4:55 PM EST) P athologist Signature Magnesium 0.78 0.69 - 1.07 [facility] mmol/L [facility] LABORATORY Specimen Anatomical Collection Method Collection Time Receive d Time (Source) Location / / Volume Laterality Blood specimen 07/05/2017 4:55 PM 017 5:24 (specimen) EST PM EST Resulting Agency Comment Spec In Lab Daphne Shahid MD CHEMISTRY ORDERABLES Performing Organization Address City/[facility]/ZIP [facility] [place] [address] (ABNORMAL) Basic Metabolic Panel (non-fasting) (07/05/2017 4:55 PM EST) athologist Signature Glucose Lvl 230 (H) 65 - 199 [facility] mg/dL [facility] [...] or in patients with acute kidney failure. http://[employer]la[employer]laCar/DHnkdep http://[employer]/DHMCnkf Specimen Anatomical Collection Method Collection Time Receive d Time (Source) Location / / Volume Laterality Blood specimen 07/05/2017 4:55 PM 017 5:24 (specimen) EST PM EST Resulting Agency Comment Spec In Lab Daphne Shahid MD CHEMISTRY ORDERABLES Performing Organization Address City/State/[place] [address] (ABNORMAL) APTT (07/05/2017 4:55 [...] Shahid MD HEMATOLOGY ORDERABLES Performing Organization Address City/[facility]/ZIP Code Phon e Number [address] (ABNORMAL) POCT Glucose (07/05/2017 4:53 PM EST) P athologist Signature POC Glucose 208 (H) 65 - 199 [facility] mg/dL [facility] LABORATORY Comment: Supplemental ranges: <140 mg/dL before meals <180 mg/dL all other times of the day Specimen Anatomical Collection Method Collection Time Receive d Time (Source) Location / / Volume Laterality Blood specimen 07/05/2017 4:53 PM 017 4:53 (specimen) EST PM EST Daphne Shahid MD POINT OF CARE TEST ORDERABLE S Performing Organization Address City/[facility] [place] [address] EKG 12 Lead (07/05/2017 4:32 PM EST) Component Value Ref Range Test Analysis Performed Pathologis t Method Time At Signature Ventricular rate 97 BPM MUSE SYSTEM Atrial Rate 97 BPM MUSE SYSTEM P-R Interval 148 ms MUSE SYSTEM QRS Duration 96 ms MUSE SYSTEM Q-T Interval 364 ms MUSE SYSTEM QTC Calculated 462 ms MUSE SYSTEM (Bezet) Calculated P [place] 48 degrees MUSE SYSTEM Calculated R [place] -33 degrees MUSE SYSTEM Calculated T [place] 98 degrees MUSE SYSTEM INTERPRETATION Normal sinus [...] Organization Address City/State/ZIP Code Phon e Number [employer] documented in this encounter Visit Diagnoses Diagnosis STEMI (ST elevation myocardial infarctio n) - Primary Acute myocardial infarction, unspecified site, episode of care unspecified Non-ST elevation myocardial infarction ( NSTEMI) Acute myocardial infarction, subendocard ial infarction, episode of care unspecified S/P CABG x 3 Postsurgical aortocoronary bypass status ASHD (arteriosclerotic heart disease) Coronary atherosclerosis of unspecified type of vessel, [place] or graft Cardiomyopathy, ischemic Other specified forms [...] post-op day 1 in the AM Give MI if unable to take PO, Routine Given [...] dose on Wed07/07/17 at 2100, Until Discontinued, [place] teeth, Routine Given 07/08/2017 10:06 PM EST [...] or norepinephrine is ineffective. Call pager # [phone] if initiated. Rate/Dose Change 07/08/2017 7:01 PM [...] if phenyleprine and/or vasopressin ineffective.Call pager # [phone] if initiated., Routine Rate/Dose Change 07/09/2017 1:24 [...] 2.0 L/min/M2. Maximum volume 2 L. Call clubhouse attendant for additional fluid orders: pager #[phone]. Rate/Dose Verify 07/08/2017 4:00 AM EST 100 [...] post-op day 1 in the AM Give MI if unable to take PO, Routine atorvastatin [...] post-op day 1 in the AM Give MI if unable to take PO
Routine Group [...]
Routine documented in this encounter Care Teams Cupola Liner Relationship Specialty Start Date End Date Lovely Vicente MD PCP - General 04/16/[address] [place] [address] [address] [place] [address] documented as of this encounter
--- OUTSIDE RECORDS SUMMARY | 2022-03-06 08:13 | XMS_ITS | Encounter Summary ---
:1945 Author Organization [facility] [place] [address] Care Team Providers Name Role Phone Lovely Vicente MD Primary Care Provider Encounter Details Date Type Department Care Team Description 07/08/2017 Orders Only Cardiology [facility] [place] [address] Social History Tobacco Use Types Packs/Day [...] MD [facility] [address], [place] [address] (Wo rk) 06/10/2022 Office Visit Dermatology Laura Scherer MD [facility] [address], [place] [address] (Wo rk) documented as of [...] Mccollum ? (Age): 1945(72y) Med Rec#: ? [id number] ?Sex: ?M ? Site Loc: ? Ht / Wt: ??(cm)/ (kg) ? Pt. Loc: ? Study Date: ?? 07/07/2017 ?Pt. Type: Tape: ? Referring: Yuan Retana Reading: Yifan Perez MD ([id number]) Performing: Yifan Perez MD ([id number]) Diagnosis: SUMMARY: 1. [facility] [...] ? Mid-Inferior ?Hypokinetic ? Mid-Inferoseptal ?Hypokinetic ? Pitman-Septal ? Hypokinetic ? Pitman-Anterior ? Hypokinetic ? Pitman-Lateral ?Hypokinetic ? Pitman-Inferior ? Hypokinetic ? Pitman-Tip ?Not Seen ? This report has been electronically sign ed by: _ Yifan Perez MD ? 07/08/2017 12 :25:18 Images reviewed and interpretation [email or web address] Cardiac Ultrasound Laboratory Procedure Note Yifan Perez MD - 07/08/2017Formatt ing of this note might be different from the original. Procedure: Transesophageal Echocardiogra m Patient: NATALYA MCBRIDE(Age): [birth year]72y) Med Rec#: [id number] Sex: M Site Loc: Ht / Wt: (cm)/ (kg) Pt. Loc: Study Date: 07/07/2017 Pt. Type: Tape: Referring: Yuan Retana Reading: Yifan Perez MD ([id number]) Performing: Yifan Perez MD ([id number]) Diagnosis: SUMMARY: 1. [facility] [...] Hypokinetic Mid-Posterolateral Hypokinetic Mid-Inferior Hypokinetic Mid-Inferoseptal Hypokinetic Pitman-Septal Hypokinetic Pitman-Anterior Hypokinetic Pitman-Lateral Hypokinetic Pitman-Inferior Hypokinetic Pitman-Tip Not Seen This report has been electronically sign ed by: _ Yifan Perez MD 07/08/2017 12:25:18 Images reviewed and interpretation verif ied [facility] Cardiac Ultrasound Laboratory Unknown ECHO ORDERABLES Performing Organization Address City/State/ZIP Code Phon e Number [facility] documented in this encounter Visit Diagnoses Not on filedocumented in this encounter Care Teams Research Greenhouse Supervisor Relationship Specialty Start Date End Date Lovely Vicente MD PCP - General 04/16/[address] [place] [address] documented as of this encounter
--- OUTSIDE RECORDS SUMMARY | 2022-03-06 08:14 | XMS_ITS | Encounter Summary ---
:1945 Author Organization [facility] Address [facility] [place] [address] Care Team Providers Name Role Phone Lovely Vicente MD Primary Care Provider Reason for Visit Auth/Cert Specialty Diagnoses / Procedures Referred By Contact Refer red To Contact Diagnoses STEMI (ST elevation myocardial infarction) NSTEMI STEMI Procedures CARDIAC CATHETERIZATION NAYE IPI Referral ID Status Reason Start Date Expiration Date Visits Requ ested Visits Authorized [id number] 1 1 Encounter Details Date Type Department Care Team Description 07/07/2017 Surgery Main Operating Room Yuan Webber, @ CABG, USING ARTERIAL Barbara Ocampo MD GRAFT;SINGLE ARTERIAL Hospital [facility] GRAFT (WRVU 33.75) [facility] DR [place]idd[place] [address] SURGERY [phone] [place], [place] 0[address] (Wo rk) Social History Tobacco [...] in this encounter Discharge Summaries Martha Teague, STANDARDS ANALYST - 07/14/2017 9:38 AM EST Inpatient - Discharge Summary Patient Name: Gregory Hoang Patient Age: 72 y.o. Birthdate: 1945 Language: Algerian Race: White Ethnicity: Not nor Admit Date: [...] , @ 1:20p Patient to follow-up with Animal Stunner/heart failure team in one week. An appointment will be made for you. You may call [phone] Patient to follow-up with Cardiac Surgery, Dr. Yuan Webber, in ~ 4 weeks with CXR, EKG. Inpatient Provider Contact Information: [facility] Section of Cardiac Surgery [facility] [place] [phone] FAX [phone] Discharge Diagnoses (Hospital Problems) Primary Diagnoses: CAD [...] performed by Manny Mcknight MD at [facility] OR ??? PRO CABG, ARTERIAL, SINGLE N/A 07/07/2017 @CABG, USING ARTERIAL GRAFT;SINGLE ARTERIAL GRAFT (WRVU 33.75) performed by Yuan Webber MD at [facility] OR ??? PRO CABG, ARTERY-VEIN, TWO N/A 07/07/2017 @CABG, TWO VENOUS GRAFTS & ARTERIAL GRAFT (WRVU 7.93) performed by Yuan Webber MD at [facility] OR ??? PRO COLONOSCOPY, REMV LESN, SNARE 01/16/2014 COLONOSCOPY, POLYPECTOMY, REMOVAL LESION BY SNARE performed by Nohemi Jaimes MD at [facility] ENDOSCOPY ??? PRO ENDOSCOPY W/VIDEO-ASST VEIN HARVEST, CABG Right 07/07/2017 ENDOSCOPIC HARVEST VEIN(S) FOR CABG (WRVU 0.31) performed by Yuan Webber MD at [facility] OR ??? PRO THYROIDECTOMY 03/28/2013 THYROIDECTOMY, TOTAL OR COMPLETE performed by Manny Mcknight MD at [facility] OR Prior To Admission Medications Prescriptions Prior to Admission Medication Sig Dispense Refill Last Dose ??? levothyroxine (SYNTHROID) 175 mcg Tablet Take 1 tablet by mouth daily. 90 tablet 3 07/05/2017 [id number] ??? ascorbic acid, vitamin C, (VITAMIN C) [...] Hospital Course: Gregory Hoang was admitted to [facility] on 07/05/2017 via the Cardiology Service. During his hospital course, he was taken emergently to the oven laborer for an ongoing STEMI. An IABP [...] not take or discontinue any prescription or xmrg-geg-vrrgmvz medications without asking your doctor or pharmacist [...] day to have your insulin doses adjusted. [facility] Endocrine clinic [...] Webber and/or the Cardiac Surgery Physician Office Cashier Team may be reached at . Weight: [...] Dr. Yuan Webber. You may use a [place] Track or treadmill but avoid any pulling [...] with the surgeon. Do not ride motorcycles, Facishare's tractors or horses. Avoid the use of [...] should resume a low fat, low cholesterol, [place] [employer] Diet/Diabetic diet. Driving: No driving [...] , @ 1:20p Patient to follow-up with Animal Stunner/heart failure team in one week. Appointment will be made for you. You may call [phone] Patient to follow-up with Cardiac Surgery, Dr. Yuan Webber, in ~ 4 weeks with CXR, EKG. Cardiac Rehabilitation: Gregory Hoang was seen today regarding participation in the outpatient Phase 2 Cardiac Rehabilitation at [facility]. The patient agrees to a referral to this program. The referral will be sent at discharge and the patient should be contacted by the Program within 1- 2 weeks from discharge. ?? Future Appointments and Orders Future Appointments Provider Department Dept Phone 09/07/2017 3:00 PM LAB, THREE L Lab 3L [facility] [phone] 09/07/2017 4:00 PM Luz Prescott MD Endocrinology at [place] [phone] Future Orders Complete By Expires EKG 12 Lead [EKG1 Custom] 08/14/2017 02/13/2018 Process Instructions: Scheduling Instructions: Questions: Which DH location will this be performed?: [place] Is a rhythm strip needed?: No If EKG Reason is Pre-op Evaluation, indicate diagnosis for surgery.: XR Chest PA & Lateral (Generic) [[id number] Custom] 08/14/2017 02/13/2018 Process Instructions: Scheduling Instructions: Questions: Where will study be performed?: [place] [facility] Portable exam?: Reason for exam and clinical history: CABG x 3 Other pertinent information: Stat read required?: Date of injury if applicable: Requested Time: Referral to Cardiac Rehab [VWB101 Custom] As directed Process Instructions: If no progress note charted, please enter Clinical details in comments. Scheduling Instructions: Questions: My question or request is: s/p CABG. Cardiac rehab at [facility] Referral to Home Health - at DISCHARGE [HXL0487 CPT(R)] As directed Process Instructions: Scheduling Instructions: Comments: DOCUMENTATION FOR VNA SERVICES (INCLUDING THOSE PATIENTS WITH MEDICARE COVERAGE REQUIRING HOME VNA SERVICES AND/OR HOSPICE SERVICES) PATIENT'S LOCATION: Gregory Hoang [address] [place] [address] [place] [id number] (home) Telephone Information: Senior Accounting Clerk's Name: self In discussion with the attending physician, it is certified that this patient is under their care and that they, or a Nurse Practitioner, or Physician Office Cashier who is working directly with them, had [...] HEALTH AGENCY: [facility] ([facility] [place] [facility]-is in [place]) PHONE: [phone] FAX: [phone] RN orders: Cardiopulmonary assessment, incisional assessment, assess vital signs, assessment of rehab progress, medication management and effectiveness, home safety evaluation. Please draw INR if indicated and send result to:Dr Vicente [phone] PT ORDERS: Continue rehab for endurance, gait stability and strength with mobility and transfers. Home safety evaluation. Home exercise program if appropriate. Start of Care Date:24-48 hours after discharge SPECIAL INSTRUCTIONS: For any follow up questions, needs, or issues please call the Cardiac Surgery Office at [phone] FOR MEDICARE ONLY: (please delete this section [...] noted. Questions: Agency name and contact information: [facility] Patient location post discharge: home What services are requested: Registered Nurse Physical Therapy Start date: Responsible MD post discharge contact info: PCP Arrangements for VNA/home care: As above. VN RN OR PCP TO PLEASE REMOVE CHEST TUBE SUTURES ON OR AFTER 07/17/2017 Signed: Martha Teague APRN [facility] Section of Cardiac Surgery [facility] [place] [phone] FAX [phone] Date: 07/14/2017 CC: MD Ivania Cr Betsy, PA [address] [place] [phone] documented in this encounter Discharge Instructions Discharge [...] day to have your insulin doses adjusted. [facility] Endocrine clinic [...] not take or discontinue any prescription or kkfk-zsz-jkfhsni medications without asking your doctor or pharmacist [...] day to have your insulin doses adjusted. [facility] Endocrine clinic [...] Webber and/or the Cardiac Surgery Physician Office Cashier Team may be reached at . ?? [...] Dr. Yuan Webber. You may use a [place] Track or treadmill but avoid any pulling [...] with the surgeon. Do not ride motorcycles, Facishare's tractors or horses. Avoid the use of [...] should resume a low fat, low cholesterol, [place] Heart Association Diet/Diabetic diet. ?? Driving: No [...] @ 1:20p ?? Patient to follow-up with Animal Stunner/heart failure team in one week. An appointment has been made for you, you can call [phone] ?? Patient to follow-up with Cardiac Surgery, Dr. Yuan Webber, in ~ 4 weeks with CXR, EKG. ? Cardiac Rehabilitation: Gregory Hoang??was seen today regarding participation in the outpatient Phase 2 Cardiac Rehabilitation at [facility]. ?? The patient agrees to a referral to this program.? The referral will be sent at discharge and the patient should be contacted by the Program within 1- 2 weeks from discharge. ? Future Appointments and Orders Future Appointments Provider Department Dept Phone ?? 09/07/2017 3:00 PM LAB, THREE L Lab 3L [facility] [phone] ?? 09/07/2017 4:00 PM Luz Prescott MD Endocrinology at [place] [phone] Future Orders Complete By Expires ?? EKG 12 Lead [EKG1 Custom] 08/14/2017 02/13/2018 ?? Process Instructions: ? Scheduling Instructions: ? Questions: ? Which location will this be performed?: [place] ?? Is a rhythm strip needed?: No ?? If EKG Reason is Pre-op Evaluation, indicate diagnosis for surgery.: ?? XR Chest PA & Lateral (Generic) [[id number] Custom] 08/14/2017 02/13/2018 ?? Process Instructions: ? Scheduling Instructions: ? Questions: ? Where will study be performed?: [place] [facility] ?? Portable exam?: ?? Reason for exam and clinical history: CABG x 3 ?? Other pertinent information: ?? Stat read required?: ?? Date of injury if applicable: ?? Requested Time: ?? Referral to Cardiac Rehab [SYY240 Custom] As directed ? Process Instructions: ?? If no progress note charted, please enter Clinical details in comments. ?? Scheduling Instructions: ? Questions: ? My question or request is: s/p CABG. Cardiac rehab at [facility] ? Arrangements for VNA/home care: As [...] RN - 07/14/2017 2:34 PM EST The patient/telephone sales representative has been provided a list of Home Health Agencies/DME vendors which serve their preferred geographic area. A letter describing our affiliations was reviewed with them and theywere educated about their right to choose where referrals are placed. Patient requests referral to [facility] [place]. PHONE: [phone] FAX: [phone] Expected date of discharge: 07/14 Referral routed to the Leather Stitcher for matching with agency/vendor and to provide [...] day to have your insulin doses adjusted. [facility] Endocrine clinic office Kathie Carrera APRN [facility] Endocrinology Diabetes Management Pager [phone] 20 minutes of this 35 minute visit was spent with the patient in counseling on diabetes and treatment plan, reviewing all glucose and insulin data as well as relevant laboratory results with the patient, and coordination of care on the inpatient unit including nursing and primary team. Zulma Power RN - 07/14/2017 10:30 AM EST The patient/telephone sales representative has been provided a list of Home Health Agencies/DME vendors which serve their preferred geographic area. A letter describing our affiliations was reviewed with them and theywere educated about their right to choose where referrals are placed. Patient requests referral to : [facility] ([facility] [place] [facility]-is in [place] PHONE: [phone] FAX: [phone]. Expected date of discharge: 07/14/17 Referral routed to the Leather Stitcher for matching with agency/vendor and to provide [...] hours. If BG remains greater than 240, ugygyi83 units (no more than three times) &??call [...] Will continue to follow Katerin Azul APRN [facility] Endocrinology Diabetes Management Pager [phone] minutes of this 25 minute visit [...] of infiltration/extravasation Discussed plan of care with MOSAICIST and RN. Elevate exrtemity and apply intermittent Warm compresses. Name of MD contacted Dr. Shaw Brown 07/13/2017 @ 0663 Name of RN contacted Ale Rangel RN Name of Pharmacist if consulted NA Name of Plastics MD ( if consulted) NA (Mandatory photo for infiltrations/ extravasations scoring a stage 2 or greater, but recommended forstage 1)( include measuring tape and identifier in the photo) HEART NURSE CARING FOR THIS PATIENT WILL CONTINUE TO [...] measuring tape and identifier in the photo) HEART NURSE CARING FOR THIS PATIENT WILL CONTINUE TO [...] regard to both infiltrates addressed by this tag writer.All of MrMadiha Hoang's responses were entirely appropriate. Images of infiltrates attached here. L Martha Teague, STANDARDS ANALYST - 07/13/2017 8:01 AM EST Cardiac Surgery Progress Note: ID: [id number] 72 year old male POD#6 s/p CABGx3 [...] discharge. ?? I have met with the patient/telephone sales representative to discuss discharge planning needs. I have provided the [facility], Office of Care Management letter from the Measurement Superintendent pertaining to rehab referrals. I have also provided a letter describing our affiliations within the [facility] and educated them about their right to choose where referrals are placed. ?? I reviewed the different levels of rehab including SNF, swing, acute and LTAC with the patient/telephone sales representative. ?? The patient/telephone sales representative has been provided a list of facilities within their preferred geographic area. ?? I have requested that the patient/telephone sales representative provide at least three choices for referral. ?? The patient/telephone sales representative have requested referrals to: ?? [facility]. [facility] ?? 2. [facility] ?? 3. More to be entered ?? Expected date of discharge: 07/14 Note routed to Leather Stitcher who will communicate referrals to facilities and [...] hours. If BG remains greater than 240, [id number] units (no more than three times) & [...] hours. If BG remains greater than 240, quzcah12 units (no more than three times) & call for new basal insulin orders. ??If less than 240 after two hours, give no insulin and resume prior schedule. Will continue to follow Katerin Azul APRN [facility] Endocrinology Diabetes Management Pager [phone] 20 minutes of this 35 minute visit was spent with the patient in counseling on diabetes and treatment plan, reviewing all glucose and insulin data as well as relevant laboratory results with the patient, and coordination of care on the inpatient unit including nursing and primary team. Makayla Stevenson APRN - 07/12/2017 9:52 AM EST Cardiac Surgery Progress Note: ID: [id number] 72 year old male POD#5 s/p CABGx3 [...] for HF Signed: MAKAYLA WILSON APRN Yanet Rdoriguez RN - 07/11/2017 7:18 PM EST Patient arrived from [facility]. VSS. MSI dressing pulled off with [...] AM EST Cardiac Surgery Progress Note: ID: [id number] 72 year old male POD#4 s/p CABGx3 [...] hours. If BG remains greater than 240, ojgqdy19 units (no more than three times) & [...] AM EST Cardiac Surgery Progress Note: ID: [id number] 72 year old male POD#3 s/p CABGx3 [...] Gas) No results found for: PHART, PO2ART, MQC7IAP Assessment/Plan: 72 year old male POD#3 s/p [...] Mami Thao - 07/09/2017 6:29 PM EST Field Artillery Senior Sergeant Encounter Note Patient Name: Gregory Hoang : [id number] MR#: [id number] Admit Date: 07/05/2017 4:20 PM Hospital Day 4 days Narrative: Patient was sitting in chair, hugging heart pillow, opened his eyes, nodding to come into room Assessment: Patient was sleepy. Intervention and Outcome: Introduced information scientist services and patient reached his hand out in appreciation. Follow-up: Field Artillery Senior Sergeant remains available for support. Time in Direct [...] 10:45 AM EST Report given to staff attorney to cover care Maddison Cee PA - 07/09/2017 9:00 AM EST Cardiac Surgery Progress Note: ID: [id number] 72 year old male POD#2 s/p CABGx3 [...] completed shifts: In: 7977.4 [I.V.:7477.4; Other:500] Out: 6585 [Urine:3000; Other:615] I- 4 L O- 2.7 [...] Attending Surgeon on rounds. Signed: STEPHANIE Iqbal [facility] Section of Cardiac Surgery Date: [...] when IABP d/c'ed. Gretchen [place], PT Pager [phone] Maddison Cee PA - 07/08/2017 11:27 AM EST Cardiac Surgery Progress Note: ID: [id number] 72 year old male POD#1 s/p CABGx3 [...] extubation later today GI: RBOs, protonix : oacsio, continue to monitor I+O Renal: check K, replete K prn ID: periop antibiotics Heme: ASA 81 Endo: insulin gtt, consult diabetes management Dispo: CV[facility], FULL CODE DW Attending Surgeon on rounds. Signed: STEPHANIE Iqbal [facility] Section of Cardiac Surgery Date: [...] in place in R femoral. No hematoma. FLOORING SALES MANAGER- Intact Psych- Anxious Skin- Dry, no [...] intact. IABP in place in R femoral. FLOORING SALES MANAGER- Intact Psych- Anxious Skin- Dry, no [...] pending CABG - hold metformin - f/u [facility] ?? #Home Meds - continue [...] note for details. DAPHNE SHAHID MD Pager [phone] Jet Mckenna MD - 07/05/2017 6:48 PM EST Preliminary Cardiac Catheterization Procedure Note: Procedure(s) performed: Left heart cath, IABP insertion Access: Right TECHNICAL SERVICE ENGINEER-->8fr IABP A time-out was conducted prior to [...] effect. Heparin gtt maintained. Pt transferred to oven laborer. documented in this encounter H&P Notes Daphne Shahid MD - 07/05/2017 6:08 PM EST CARDIOLOGY HISTORY & PHYSICAL EXAM Date of Admission: 07/05/2017 ( Hospital Day 0 days ) Responsible Attending: Daphne Shahid MD PCP: Lovely Vicente MD PCP#: [phone] Patient Active Problem List Diagnosis Code ??? [...] load with heparin drip and transferred to [facility]. While there, continued sob, question of chest pain. Stat TTE showing WMA diffusely and EF around 20%. No significant valvular disease. Taken to the oven laborer urgently for ongoing STEMI. [facility] Labs: INR 1.0 WBC 5.88 Hgb [...] monitor I/O - s/p lasix in the oven laborer, redose to aim net neg 1L [...] Medicine, PGY-2 Cardiology S1, Team Pager # [phone] CARDIOLOGY ATTENDING NOTE Patient: Gregory Hoang Date [...] amenable for PCI. DAPHNE SHAHID MD Pager [phone] documented in this encounter Miscellaneous Notes Consult Note - Daphne Shahid MD - 07/14/2017 11:46 AM EST Heart Failure Service Inpatient Consult Note Gregory Hoang Date of : 1945 Age: 72 y.o. Today's date: 07/14/17 PCP: Lovely Vicente MD SURGICAL CONSULTANT: None Place of Service: C451-A Reason for [...] performed by Manny Mcknight MD at [facility] OR ??? PRO CABG, ARTERIAL, SINGLE N/A 07/07/2017 @CABG, USING ARTERIAL GRAFT;SINGLE ARTERIAL GRAFT (WRVU 33.75) performed by Yuan Webber MD at [facility] OR ??? PRO CABG, ARTERY-VEIN, TWO N/A 07/07/2017 @CABG, TWO VENOUS GRAFTS & ARTERIAL GRAFT (WRVU 7.93) performed by Yuan Webber MD at [facility] OR ??? PRO COLONOSCOPY, REMV LESN, SNARE 01/16/2014 COLONOSCOPY, POLYPECTOMY, REMOVAL LESION BY SNARE performed by Nohemi Jaimes MD at [facility] ENDOSCOPY ??? PRO ENDOSCOPY W/VIDEO-ASST VEIN HARVEST, CABG Right 07/07/2017 ENDOSCOPIC HARVEST VEIN(S) FOR CABG (WRVU 0.31) performed by Yuan Webber MD at [facility] OR ??? PRO THYROIDECTOMY 03/28/2013 THYROIDECTOMY, TOTAL OR COMPLETE performed by Manny Mcknight MD at [facility] MAIN OR Outpt Meds: Current Outpatient Prescriptions [...] following studies: EKG 07/14/17: NSR 75 bpm, BAG SEWER anterior infarct, LAD CXR 07/11/17: FINDINGS: Sternotomy wires. The patient has been extubated, left chest tube removed, and [place]uz[place] catheter removed since the 07/07/2017 study. Atelectasis [...] was discussed with Zehra. Jaden Kelley MD Sushi Chef Pager [phone] CARDIOLOGY ATTENDING NOTE Patient: Gregory Hoang Date [...] heart failure clinic. DAPHNE SHAHID MD Pager [phone] Plan of Care - Alden Chavarria, STEAM AND GAS TURBINE ASSEMBLER - 07/14/2017 11:35 AM EST Problem: Patient [...] Disposition: home with assist Alden Jorge Genikevin, STEAM AND GAS TURBINE ASSEMBLER Pager: [phone] Inpatient Physical Therapy Problem: Acute Rehab Services [...] sit/sit to supine -- Bed Mobility Goal, Cuming Level supervision required -- Bed Mobility Goal, [...] - 3 days -- Gait Training Goal, Cuming Level supervision required -- Gait Training Goal, [...] days -- Transfer Training Goal, Activity Type ljy-rn-nhiml/vmshu-eo-avi;hur-fk-nvnjg/soelr-nx-kfc;toilet -- Transfer Train Goal, Cuming Level supervision required -- Transfer Training Goal, [...] keeping present for 2 days per family. Structural Steel Trades Worker noted of frustrations, house keeping sent to room. Patient offered showered twice, refused. at bedside, frustrated that shower not complete, informed that patient had refused several times. requesting to see SENIOR INTERACTIVE PRODUCER, paged sent to Martha, will come to bedside (middle of consult). not willing to wait, Martha notified that family had gone home. Encouraged to come for morning rounds a t 8am. Diabetes team at bedside - insulin adjustments made. Call cabello in reach. Continue to monitor. PLAN MOVING FORWARD: Ambulate, dressing changes BID, Please change drsg at 4am per Martha SENIOR INTERACTIVE PRODUCER request. INDIVIDUALIZED FALL PREVENTION INTERVENTIONS: Patient-specific fall [...] levels on the lower side, 60ml of [place] juice given after a FS of 80. [...] 07/13/17 0502 Interdisciplinary Rounds/Family Conf Participants case supervisor;dietitian/nutrition services;nursing;occupational therapy;patient;pharmacy;physical therapy;physician Plan of Care - [...] Anticipated Discharge Disposition: home with assist Pager: [phone] CLARISSA SEGAL, PT 07/12/2017 Physical Therapy Rehabilitation [...] to sit/sit to supine Bed Mobility Goal, Cuming Level supervision required Bed Mobility Goal, Additional Goal adheres to psternal precautions for transfer Goal: Gait Training Goal Stand Alone Therapy Goal Outcome: Ongoing (Interventions Implemented as Appropriate) 07/12/17 1225 Gait Training Goal Gait Training Goal, Date Established 07/12/17 Gait Training Goal, Time to Achieve 2 - 3 days Gait Training Goal, Cuming Level supervision required Gait Training Goal, Assist [...] 3 days Transfer Training Goal, Activity Type akn-xi-xtqbr/cwqjl-td-yic;qaa-pf-kmdxb/xkuso-kh-adh;toilet Transfer Train Goal, Cuming Level supervision required Transfer Training Goal, Additional Goal adheres to sternal precautions during transfer Consult Note - Octavia Vaughn RN - 07/12/2017 10:50 AM EST [facility] CARDIAC REHABILITATION Gregory Hoang was seen today regarding participation in the outpatient Phase 2 Cardiac Rehabilitation at [facility]. The patient agrees to a referral [...] IV site, amio to other piv and PLANT HEALTH MANAGER at bedside to help assess, IV [...] staff, he stood and marched in place. [place] weak, wanting to sit back down. Remained [...] Health/Prescription Coverage: Primary Insurance: MEDICARE Secondary Insurance: [email or web address] [place] Prescription Coverage: yes Preferred Pharmacy: [facility] [place] [place] Other: none Primary Care Provider: Lovely Vicente MD [phone] Patient/Caregiver Goals of Treatment:live and get my breath back Potential Needs for Transition of Care: Rehab/SNF: [facility] Home Health: NA DME: TBD Dialysis: na Community Resources: available Transportation: yes Other: none Anticipated Barriers to Discharge/Special Considerations: none Plan: Likely SNF Rehab before home A member of the Care Management team will continue to monitor progress, follow for continuity of care and assist with transition of care planning. ERLIN Weiss Pager: [phone] Consult Note - Katerin Azul RN - [...] management and to provide a review of rodent exterminator diabetes care. Diabetes History: Gregory Hoang has [...] patient W/E coverage, Dr. Jeane Tatum, pager [phone] Katerin Azul APRN Endocrinology Diabetes Management Pager [phone] Plan of Care - Walt Stephanie Wyatt [...] Webber MD - 07/07/2017 6:27 PM EST [facility] Operative Note Patient Name: Gregory Hoang : [id number] MR#: [id number] Case Date: 07/07/2017 Surgeon: Surgeon(s) and Role: * Yuan Webber MD - Primary * Michael Drake PA - Physician Office Cashier * Linda Flores PA - Physician Office Cashier Preoperative diagnosis: 3VD Postoperative diagnosis: CAD, severe [...] Operative Note Patient Name: Gregory Hoang : [id number] MR#: [id number] Case Date: 07/07/2017 Surgeon: Surgeon(s) and Role: * Yuan Webber MD - Primary * Michael Drake PA - Physician Office Cashier * Linda Florse PA - Physician Office Cashier Preoperative diagnosis: 3VD Postoperative diagnosis: CAD, severe [...] Katty Hahn, MS3 [facility] Cardiology S1 (Pager [phone]) Plan of Care [...] CENTER, [place] MAIN OR ??? PRO COLONOSCOPY, REMV LESN, SNARE 01/16/2014 COLONOSCOPY, POLYPECTOMY, REMOVAL LESION BY SNARE performed by Nohemi Jaimes MD at [facility] [place] ENDOSCOPY ??? 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 Lasix given in oven laborer, 1.4 L out at this time. [...] MD [facility] [address] [place], [place] [address] (Wo rk) 06/10/2022 Office Visit Dermatology Laura Scherer MD [facility] DR [address] [place], [place] [address] (Wo rk) Scheduled Orders Name [...] procedure are i n the results section. SHOULDER JOINER SCAN 07/15/2017 12:00 Res ults for this [...] Routine 07/08/2017 4:00 Results f or this ([facility]) AM EST [...] Routine 07/07/2017 5:15 Results f or this ([facility]) AM EST [...] Routine 07/06/2017 7:40 Results f or this ([facility]) PM EST [...] Timed 07/06/2017 2:10 Results f or this ([facility] PM [...] section. TYPE AND SCREEN Routine 07/06/2017 12:00 ([facility]/SHANDA) PM EST [...] Routine 07/06/2017 8:10 Results f or this ([facility]) AM EST [...] Routine 07/06/2017 2:20 Results f or this ([facility]) AM EST [...] Routine 07/05/2017 8:20 Results f or this ([facility]) PM EST [...] Timed 07/05/2017 4:55 Results f or this ([facility]) PM EST [...] 2017 EXAMINATION: XR CHEST PA AND LATERAL (IntucellIC) CLINICAL HISTORY: CABG x 3 TECHNIQUE: PA [...] [place] at 08/19/2017 10:30 AM Martha Teague STANDARDS ANALYST IMG DX ORDERABLES SCAN DOC: SHOULDER JOINER (07/15/2017 12:00 AM EST) Narrative 07/15/2017 12:00 [...] POC Glucose 186 65 - 199 [facility] mg/dL [facility] Comment: Supplemental ranges: <140 mg/dL before meals <180 mg/dL all other times of the day Specimen Anatomical Collection Method Collection Time Receive d Time (Source) Location / / Volume Laterality Blood specimen 07/14/2017 11:56 7 (specimen) AM EST 11:56 AM EST Yuan Webber MD POINT OF CARE TEST ORDERABLE S Performing Organization Address City/State/[place] [address] POCT Glucose (07/14/2017 7:52 AM EST) athologist Signature POC Glucose 126 65 - 199 [facility] mg/dL [facility] Comment: Supplemental ranges: <140 mg/dL before meals <180 mg/dL all other times of the day Specimen Anatomical Collection Method Collection Time Receive d Time (Source) Location / / Volume Laterality Blood specimen 07/14/2017 7:52 AM 017 7:52 (specimen) EST AM EST Yuan Webber MD POINT OF CARE TEST ORDERABLE S Performing Organization Address City/[facility]/[place] [address] (ABNORMAL) Prothrombin Time (07/14/2017 [...] Wilson APRN HEMATOLOGY ORDERABLES Performing Organization Address City/[facility]/[place] [address] Potassium (07/14/2017 4:46 AM EST) athologist Signature Potassium 4.3 3.5 - 5.0 [facility] mmol/L [facility] Comment: Please note: ??Patients with [...] Address City/State/ZIP Code Phon e Number [address] POCT Glucose (07/14/2017 4:34 AM EST) athologist Signature POC Glucose 115 65 - 199 [place] mg/dL [facility] Comment: Supplemental ranges: <140 mg/dL before meals <180 mg/dL all other times of the day Specimen Anatomical Collection Method Collection Time Receive d Time (Source) Location / / Volume Laterality Blood specimen 07/14/2017 4:34 AM 017 4:34 (specimen) EST AM EST uYan Webber MD POINT OF CARE TEST ORDERABLE S Performing Organization Address City/[facility]/ZIP Code Phon e Number [address] POCT Glucose (07/13/2017 11:33 PM EST) athologist Signature POC Glucose 132 65 - 199 [place] mg/dL [facility] Comment: Supplemental ranges: <140 mg/dL before meals <180 mg/dL all other times of the day Specimen Anatomical Collection Method Collection Time Receive d Time (Source) Location / / Volume Laterality Blood specimen 07/13/2017 11:33 7 (specimen) PM EST 11:33 PM EST Yuan Webber MD POINT OF CARE TEST ORDERABLE S Performing Organization Address City/[facility]/ZIP Code Phon [place] [address] POCT Glucose (07/13/2017 9:25 PM EST) athologist Signature POC Glucose 121 65 - 199 [place] mg/dL [facility] Comment: Supplemental ranges: <140 mg/dL before meals <180 mg/dL all other times of the day Specimen Anatomical Collection Method Collection Time Receive d Time (Source) Location / / Volume Laterality Blood specimen 07/13/2017 9:25 PM 017 9:25 (specimen) EST PM EST Yuan Webber MD POINT OF CARE TEST ORDERABLE S Performing Organization Address City/State/[place] [address] POCT Glucose (07/13/2017 4:55 PM EST) athologist Signature POC Glucose 79 65 - 199 [place] mg/dL [facility] Comment: Supplemental ranges: <140 mg/dL before meals <180 mg/dL all other times of the day Specimen Anatomical Collection Method Collection Time Receive d Time (Source) Location / / Volume Laterality Blood specimen 07/13/2017 4:55 PM 017 4:55 (specimen) EST PM EST Yuan Webber MD POINT OF CARE TEST ORDERABLE S Performing Organization Address City/State/ZIP Code Phon e Number [address] POCT Glucose (07/13/2017 11:16 AM EST) athologist Signature POC Glucose 163 65 - 199 [facility] [place]AN mg/dL [facility] Comment: Supplemental ranges: <140 mg/dL before meals <180 mg/dL all other times of the day Specimen Anatomical Collection Method Collection Time Receive d Time (Source) Location / / Volume Laterality Blood specimen 07/13/2017 11:16 7 (specimen) AM EST 11:16 AM EST Yuan Wbeber MD POINT OF CARE TEST ORDERABLE S Performing Organization Address City/State/ZIP Code Phon e Number [address] POCT Glucose (07/13/2017 8:07 AM EST) athologist Signature POC Glucose 96 65 - 199 [place] mg/dL [facility] Comment: Supplemental ranges: <140 mg/dL before meals <180 mg/dL all other times of the day Specimen Anatomical Collection Method Collection Time Receive d Time (Source) Location / / Volume Laterality Blood specimen 07/13/2017 8:07 AM 017 8:07 (specimen) EST AM EST Yuan Webber MD POINT OF CARE TEST ORDERABLE S Performing Organization Address City/State/[place] [address] (ABNORMAL) Prothrombin Time (07/13/2017 [...] Organization Address City/State/[place] [address] (ABNORMAL) Basic Metabolic Panel (non-fasting) (07/13/2017 4:26 AM EST) athologist Signature Glucose Lvl 95 65 - 199 [facility] mg/dL [facility] Comment: Diabetes: >=200 mg/dL plus symp toms BUN 25 (H) 10 - 20 mg/dL [facility] Creatinine 1.19 0.80 - 1.50 [...] 15 mmol/L [facility] Calcium 7.7 (L) 8.5 - 10.5 mg/dL [facility] Estimated GFR 60 >=60 [facility] Comment: The reported eGFR should be multiplied b y 1.2 for patients. The MDRD is not an appropriate measure o f renal function for patients with body mass extremes or in patients with acute kidney failure. http://[employer]/DHnkdep http://[employer]/DHMCnkf Specimen Anatomical Collection Method Collection Time Receive d Time (Source) Location / / Volume Laterality Blood specimen 07/13/2017 4:26 AM 017 4:46 (specimen) EST AM EST Resulting Agency Comment Spec In Lab Makayla Wilson APRN CHEMISTRY ORDERABLES Performing Organization Address City/[facility]/ZIP Code Phon e Number [address] POCT Glucose (07/13/2017 3:52 AM EST) athologist Signature POC Glucose 93 65 - 199 [facility] Comment: Supplemental ranges: <140 mg/dL before meals <180 mg/dL all other times of the day Specimen Anatomical Collection Method Collection Time Receive d Time (Source) Location / / Volume Laterality Blood specimen 07/13/2017 3:52 AM 017 3:52 (specimen) EST AM EST Yuan Webber MD POINT OF CARE TEST ORDERABLE S Performing Organization Address City/State/ZIP Code Phon e Number [address] POCT Glucose (07/13/2017 12:21 AM EST) athologist Signature POC Glucose 80 65 - 199 [facility] Comment: Supplemental ranges: <140 mg/dL before meals <180 mg/dL all other times of the day Specimen Anatomical Collection Method Collection Time Receive d Time (Source) Location / / Volume Laterality Blood specimen 07/13/2017 12:21 7 (specimen) AM EST 12:21 AM EST Yuan Webber MD POINT OF CARE TEST ORDERABLE S Performing Organization Address City/State/ZIP Code Phon e Number [address] POCT Glucose (07/12/2017 8:22 PM EST) athologist Signature POC Glucose 119 65 - 199 [place] mg/dL [facility] Comment: Supplemental ranges: <140 mg/dL before meals <180 mg/dL all other times of the day Specimen Anatomical Collection Method Collection Time Receive d Time (Source) Location / / Volume Laterality Blood specimen 07/12/2017 8:22 PM 017 8:22 (specimen) EST PM EST Yuan Webber MD POINT OF CARE TEST ORDERABLE S Performing Organization Address City/[facility]/ZIP Code Phon e Number [address] POCT Glucose (07/12/2017 4:02 PM EST) athologist Signature POC Glucose 114 65 - 199 [place] mg/dL [facility] Comment: Supplemental ranges: <140 mg/dL before meals <180 mg/dL all other times of the day Specimen Anatomical Collection Method Collection Time Receive d Time (Source) Location / / Volume Laterality Blood specimen 07/12/2017 4:02 PM 017 4:02 (specimen) EST PM EST Yuan Webber MD POINT OF CARE TEST ORDERABLE S Performing Organization Address City/[facility]/[place] [address] POCT Glucose (07/12/2017 11:28 AM EST) athologist Signature POC Glucose 164 65 - 199 [place] mg/dL [facility] Comment: Supplemental ranges: <140 mg/dL before meals <180 mg/dL all other times of the day Specimen Anatomical Collection Method Collection Time Receive d Time (Source) Location / / Volume Laterality Blood specimen 07/12/2017 11:28 7 (specimen) AM EST 11:28 AM EST Yuan Webber MD POINT OF CARE TEST ORDERABLE S Performing Organization Address City/State/ZIP Code Phon e Number [address] POCT Glucose (07/12/2017 7:34 AM EST) athologist Signature POC Glucose 109 65 - 199 [facility] Comment: Supplemental ranges: <140 mg/dL before meals <180 mg/dL all other times of the day Specimen Anatomical Collection Method Collection Time Receive d Time (Source) Location / / Volume Laterality Blood specimen 07/12/2017 7:34 AM 017 7:34 (specimen) EST AM EST Yuan Webber MD POINT OF CARE TEST ORDERABLE S Performing Organization Address City/State/[place] [address] (ABNORMAL) Basic Metabolic Panel (non-fasting) (07/12/2017 4:11 AM EST) athologist Signature Glucose Lvl 92 65 - 199 [facility] Comment: Diabetes: >=200 mg/dL plus symp toms BUN 31 (H) 10 - 20 mg/dL [facility] Creatinine 1.23 0.80 - 1.50 [...] CENTER LABORATORY Estimated GFR 58 (L) >=60 [facility] Comment: The reported eGFR should be multiplied b y 1.2 for patients. The MDRD is not an appropriate measure o f renal function for patients with body mass extremes or in patients with acute kidney failure. http://[employer]/DHnkdep http://[employer]/DHMCnkf Specimen Anatomical Collection Method Collection Time Receive d Time (Source) Location / / Volume Laterality Blood specimen 07/12/2017 4:11 AM 017 8:57 (specimen) EST AM EST Resulting Agency Comment Spec [facility] CHEMISTRY ORDERABLES Performing Organization Address [facility] Phon e Number [address] (ABNORMAL) Prothrombin Time (07/12/2017 [...] [place] STACIE HEMATOLOGY ORDERABLES Performing Organization Address [facility] Phon e Number [address] Potassium (07/12/2017 4:11 AM EST) P athologist Signature Potassium 3.8 3.5 - 5.0 [facility] mmol/L [facility] Comment: Please note: ??Patients with [...] Wilson APRN CHEMISTRY ORDERABLES Performing Organization Address City/[facility]/ZIP [facility] Phon e Number [address] POCT Glucose (07/12/2017 4:10 AM EST) athologist Signature POC Glucose 90 65 - 199 [facility] Comment: Supplemental ranges: <140 mg/dL before meals <180 mg/dL all other times of the day Specimen Anatomical Collection Method Collection Time Receive d Time (Source) Location / / Volume Laterality Blood specimen 07/12/2017 4:10 AM 017 4:10 (specimen) EST AM EST Yuan Webber MD POINT OF CARE TEST ORDERABLE S Performing Organization Address City/[facility] Code Phon e Number [address] POCT Glucose (07/11/2017 11:57 PM EST) athologist Signature POC Glucose 98 65 - 199 [facility] Comment: Supplemental ranges: <140 mg/dL before meals <180 mg/dL all other times of the day Specimen Anatomical Collection Method Collection Time Receive d Time (Source) Location / / Volume Laterality Blood specimen 07/11/2017 11:57 7 (specimen) PM EST 11:57 PM EST Yuan Webber MD POINT OF CARE TEST ORDERABLE S Performing Organization Address City/[facility]/ZIP Code Phon e Number [address] POCT Glucose (07/11/2017 8:32 PM EST) P athologist Signature POC Glucose 146 65 - 199 [place] mg/dL [facility] Comment: Supplemental ranges: <140 mg/dL before meals <180 mg/dL all other times of the day Specimen Anatomical Collection Method Collection Time Receive d Time (Source) Location / / Volume Laterality Blood specimen 07/11/2017 8:32 PM 017 8:32 (specimen) EST PM EST Yuan Webber MD POINT OF CARE TEST ORDERABLE S Performing Organization Address City/State/[place] [address] XR Chest PA & [...] e xtubated, left chest tube removed, and [place]uz[place] catheter removed since the study. Atelectasis at [...] e xtubated, left chest tube removed, and [place] catheter removed since the study. Atelectasis at [...] (H) 65 - 199 [place] mg/dL [facility] Comment: Supplemental ranges: <140 mg/dL before meals <180 mg/dL all other times of the day Specimen Anatomical Collection Method Collection Time Receive d Time (Source) Location / / Volume Laterality Blood specimen 07/11/2017 4:05 PM 017 4:05 (specimen) EST PM EST Yuan Webber MD POINT OF CARE TEST ORDERABLE S Performing Organization Address City/[facility]/ZIP Code Phon e Number [address] POCT Glucose (07/11/2017 11:55 AM EST) athologist Signature POC Glucose 176 65 - 199 [place] mg/dL [facility] Comment: Supplemental ranges: <140 mg/dL before meals <180 mg/dL all other times of the day Specimen Anatomical Collection Method Collection Time Receive d Time (Source) Location / / Volume Laterality Blood specimen 07/11/2017 11:55 7 (specimen) AM EST 11:55 AM EST Yuan Webber MD POINT OF CARE TEST ORDERABLE S Performing Organization Address City/State/[place] [address] POCT Glucose (07/11/2017 7:53 AM EST) athologist Signature POC Glucose 189 65 - 199 [place] mg/dL [facility] Comment: Supplemental ranges: <140 mg/dL before meals <180 mg/dL all other times of the day Specimen Anatomical Collection Method Collection Time Receive d Time (Source) Location / / Volume Laterality Blood specimen 07/11/2017 7:53 AM 017 7:53 (specimen) EST AM EST Yuan Webber MD POINT OF CARE TEST ORDERABLE S Performing Organization Address City/State/[place] [address] POCT Glucose (07/11/2017 4:22 AM EST) athologist Signature POC Glucose 151 65 - 199 [place] mg/dL [facility] Comment: Supplemental ranges: <140 mg/dL before meals <180 mg/dL all other times of the day Specimen Anatomical Collection Method Collection Time Receive d Time (Source) Location / / Volume Laterality Blood specimen 07/11/2017 4:22 AM 017 4:22 (specimen) EST AM EST Yuan Webber MD POINT OF CARE TEST ORDERABLE S Performing Organization Address City/[facility]/[place] [address] Potassium (07/11/2017 2:20 AM EST) athologist Signature Potassium 4.5 3.5 - 5.0 [facility] mmol/L [facility] Comment: Please note: ??Patients with [...] MD CHEMISTRY ORDERABLES Performing Organization Address City/[facility]/ZIP Code Phon e Number [address] POCT Glucose (07/11/2017 12:17 AM EST) athologist Signature POC Glucose 162 65 - 199 [place] mg/dL [facility] Comment: Supplemental ranges: <140 mg/dL before meals <180 mg/dL all other times of the day Specimen Anatomical Collection Method Collection Time Receive d Time (Source) Location / / Volume Laterality Blood specimen 07/11/2017 12:17 7 (specimen) AM EST 12:17 AM EST Yuan Webber MD POINT OF CARE TEST ORDERABLE S Performing Organization Address City/State/[place] [address] POCT Glucose (07/10/2017 8:47 PM EST) athologist Signature POC Glucose 191 65 - 199 [place] mg/dL [facility] Comment: Supplemental ranges: <140 mg/dL before meals <180 mg/dL all other times of the day Specimen Anatomical Collection Method Collection Time Receive d Time (Source) Location / / Volume Laterality Blood specimen 07/10/2017 8:47 PM 017 8:47 (specimen) EST PM EST Yuan Webber MD POINT OF CARE TEST ORDERABLE S Performing Organization Address City/State/[place] [address] POCT Glucose (07/10/2017 4:06 PM EST) athologist Signature POC Glucose 131 65 - 199 [place] mg/dL [facility] Comment: Supplemental ranges: <140 mg/dL before meals <180 mg/dL all other times of the day Specimen Anatomical Collection Method Collection Time Receive d Time (Source) Location / / Volume Laterality Blood specimen 07/10/2017 4:06 PM 017 4:06 (specimen) EST PM EST Yuan Webber MD POINT OF CARE TEST ORDERABLE S Performing Organization Address City/State/ZIP Code Phon e Number [address] POCT Glucose (07/10/2017 3:08 PM EST) athologist Signature POC Glucose 151 65 - 199 [facility] RYAN mg/dL [facility] Comment: Supplemental ranges: <140 mg/dL before meals <180 mg/dL all other times of the day Specimen Anatomical Collection Method Collection Time Receive d Time (Source) Location / / Volume Laterality Blood specimen 07/10/2017 3:08 PM 017 3:08 (specimen) EST PM EST Yuan Webber MD POINT OF CARE TEST ORDERABLE S Performing Organization Address City/State/ZIP Code Phon e Number [address] POCT Glucose (07/10/2017 2:25 PM EST) athologist Signature POC Glucose 146 65 - 199 [place] mg/dL [facility] Comment: Supplemental ranges: <140 mg/dL before meals <180 mg/dL all other times of the day Specimen Anatomical Collection Method Collection Time Receive d Time (Source) Location / / Volume Laterality Blood specimen 07/10/2017 2:25 PM 017 2:25 (specimen) EST PM EST Yuan Webber MD POINT OF CARE TEST ORDERABLE S Performing Organization Address City/State/[place] [address] POCT Glucose (07/10/2017 1:23 PM EST) athologist Signature POC Glucose 166 65 - 199 [place] mg/dL [facility] Comment: Supplemental ranges: <140 mg/dL before meals <180 mg/dL all other times of the day Specimen Anatomical Collection Method Collection Time Receive d Time (Source) Location / / Volume Laterality Blood specimen 07/10/2017 1:23 PM 017 1:23 (specimen) EST PM EST Yuan Webber MD POINT OF CARE TEST ORDERABLE S Performing Organization Address City/State/[place] [address] POCT Glucose (07/10/2017 11:52 AM EST) athologist Signature POC Glucose 157 65 - 199 [place] mg/dL [facility] Comment: Supplemental ranges: <140 mg/dL before meals <180 mg/dL all other times of the day Specimen Anatomical Collection Method Collection Time Receive d Time (Source) Location / / Volume Laterality Blood specimen 07/10/2017 11:52 7 (specimen) AM EST 11:52 AM EST Yuan Webber MD POINT OF CARE TEST ORDERABLE S Performing Organization Address City/State/ZIP Code Phon e Number [address] POCT Glucose (07/10/2017 11:01 AM EST) P athologist Signature POC Glucose 158 65 - 199 [place] [facility] mg/dL [facility] Comment: Supplemental ranges: <140 mg/dL before meals <180 mg/dL all other times of the day Specimen Anatomical Collection Method Collection Time Receive d Time (Source) Location / / Volume Laterality Blood specimen 07/10/2017 11:01 7 (specimen) AM EST 11:01 AM EST Yuan Webber MD POINT OF CARE TEST ORDERABLE S Performing Organization Address City/[facility]/ZIP Code Phon e Number [address] POCT Glucose (07/10/2017 9:54 AM EST) P athologist Signature POC Glucose 160 65 - 199 [place] mg/dL [facility] Comment: Supplemental ranges: <140 mg/dL before meals <180 mg/dL all other times of the day Specimen Anatomical Collection Method Collection Time Receive d Time (Source) Location / / Volume Laterality Blood specimen 07/10/2017 9:54 AM 017 9:54 (specimen) EST AM EST Yuan Webber MD POINT OF CARE TEST ORDERABLE S Performing Organization Address City/State/ZIP Code Phon e Number [address] POCT Glucose (07/10/2017 8:58 AM EST) P athologist Signature POC Glucose 183 65 - 199 [place] mg/dL [facility] Comment: Supplemental ranges: <140 mg/dL before meals <180 mg/dL all other times of the day Specimen Anatomical Collection Method Collection Time Receive d Time (Source) Location / / Volume Laterality Blood specimen 07/10/2017 8:58 AM 017 8:58 (specimen) EST AM EST Yuan Webber MD POINT OF CARE TEST ORDERABLE S Performing Organization Address City/State/ZIP Code Phon e Number [address] POCT Glucose (07/10/2017 8:01 AM EST) athologist Signature POC Glucose 173 65 - 199 [place] mg/dL [facility] Comment: Supplemental ranges: <140 mg/dL before meals <180 mg/dL all other times of the day Specimen Anatomical Collection Method Collection Time Receive d Time (Source) Location / / Volume Laterality Blood specimen 07/10/2017 8:01 AM 017 8:01 (specimen) EST AM EST Yuan Webber MD POINT OF CARE TEST ORDERABLE S Performing Organization Address City/State/ZIP Code Phon e Number [address] POCT Glucose (07/10/2017 7:05 AM EST) athologist Signature POC Glucose 166 65 - 199 [place] mg/dL [facility] Comment: Supplemental ranges: <140 mg/dL before meals <180 mg/dL all other times of the day Specimen Anatomical Collection Method Collection Time Receive d Time (Source) Location / / Volume Laterality Blood specimen 07/10/2017 7:05 AM 017 7:05 (specimen) EST AM EST Yuan Webber MD POINT OF CARE TEST ORDERABLE S Performing Organization Address City/State/ZIP Code Phon e Number [address] POCT Glucose (07/10/2017 6:00 AM EST) athologist Signature POC Glucose 162 65 - 199 [facility] RYAN mg/dL [facility] Comment: Supplemental ranges: <140 mg/dL before meals <180 mg/dL all other times of the day Specimen Anatomical Collection Method Collection Time Receive d Time (Source) Location / / Volume Laterality Blood specimen 07/10/2017 6:00 AM 017 6:00 (specimen) EST AM EST Yuan Webber MD POINT OF CARE TEST ORDERABLE S Performing Organization Address City/State/ZIP Code Phon e Number [place] [phone] [facility] LAB[address]ORY Drive (ABNORMAL) Differential, Automated (07/10/2017 4:28 AM EST) [facility] Method Time Signature Neutrophils % 87.9 % [facility] Neutr Abs (ANC) 10.70 (H) 1.70 - [facility] 6.10 [facility] x10(3)/[facility] L LABORATORY Lymphocytes % 3.9 % [facility] Lymphocytes Abs 0.5 (L) 0.9 - 3.2 [facility] x10(3)/[facility] LABORATORY Monocytes % 7.0 % [facility] Monocyte Abs 0.8 0.3 - 0.9 [facility] x10(3)/[facility] LABORATORY Eosinophils % 0.3 % [facility] Eosinophils Abs 0.0 0.0 - 0.4 [facility] x10(3)/[facility] LABORATORY Basophils % 0.2 % [facility] Basophils Abs 0.0 0.0 - 0.1 [facility] x10(3)/[facility] LABORATORY Immature Gran % 0.70 % ST. [...] MD HEMATOLOGY ORDERABLES Performing Organization Address City/[facility]/ZIP Code Phon e Number [place] [phone] (ABNORMAL) Hemogram (07/10/2017 4:28 AM EST) Analysis Performed At Patho logist Time Signature WBC 12.2 (H) 4.0 - 9.5 [facility] x10(3)/[facility] LABORATORY RBC 3.31 (L) 4.58 - [facility] 5.54 [facility] x10(6)/[facility] LABORATORY Hemoglobin 9.8 (L) 13.7 - [facility] 16.[facility] gm/dL [facility] Hematocrit 30.0 (L) 40.5 - [facility] 48.5 % [facility] MCV 90.6 82.9 - [facility] 93.1 [facility] LABORATORY MCH 29.6 27.5 - [facility] 32.1 pg [facility] MCHC 32.7 32.0 - [facility] 35.7 gm/dL [facility] Platelets 135 (L) 145 - 357 [facility] x10(3)/[facility] LABORATORY RDWSD 50.8 (H) 36.0 - [facility] 45.0 [facility] LABORATORY RDWCV 15.4 (H) 11.4 - [facility] 13.8 % [facility] MPV 10.0 7.6 - 12.9 [facility] LABORATORY nRBC % Auto 0.0 % [facility] nRBC Abs Auto 0.000 0.000 - [facility] 0.000 [facility] x10(3)/[facility] LABORATORY Specimen Anatomical Collection Method Collection Time Receive d Time (Source) Location / / Volume Laterality Blood specimen 07/10/2017 4:28 AM 017 4:36 (specimen) EST AM EST Resulting Agency Comment Spec In Lab Yuan Webber MD HEMATOLOGY ORDERABLES Performing Organization Address City/State/[place] [address] (ABNORMAL) Basic Metabolic Panel (non-fasting) (07/10/2017 4:28 AM EST) P athologist Signature Glucose Lvl 178 65 - 199 [facility] mg/dL [facility] Comment: Diabetes: >=200 mg/dL plus symp toms BUN 20 10 - 20 mg/dL [facility] Creatinine 1.19 0.80 - 1.50 [...] 15 mmol/L [facility] Calcium 7.4 (L) 8.5 - 10.5 mg/dL [facility] Estimated GFR 60 >=60 [facility] Comment: The reported eGFR should be multiplied b y 1.2 for patients. The MDRD is not an appropriate measure o f renal function for patients with body mass extremes or in patients with acute kidney failure. http://[email or web address].MediSens/DHnkdep http://[employer]/DHMCnkf Specimen Anatomical Collection Method Collection Time Receive d Time (Source) Location / / Volume Laterality Blood specimen 07/10/2017 4:28 AM 017 4:36 (specimen) EST AM EST Resulting Agency Comment Spec In Lab Yuan Webber MD CHEMISTRY ORDERABLES Performing Organization Address City/State/[place] [address] POCT Glucose (07/10/2017 4:26 AM EST) P athologist Signature POC Glucose 176 65 - 199 [facility] mg/dL [facility] Comment: Supplemental ranges: <140 mg/dL before meals <180 mg/dL all other times of the day Specimen Anatomical Collection Method Collection Time Receive d Time (Source) Location / / Volume Laterality Blood specimen 07/10/2017 4:26 AM 017 4:26 (specimen) EST AM EST Yuan Webber MD POINT OF CARE TEST ORDERABLE S Performing Organization Address City/State/ZIP Code Phon e Number [address] (ABNORMAL) POCT Glucose (07/10/2017 3:06 AM EST) P athologist Signature POC Glucose 204 (H) 65 - 199 [place] mg/dL [facility] Comment: Supplemental ranges: <140 mg/dL before meals <180 mg/dL all other times of the day Specimen Anatomical Collection Method Collection Time Receive d Time (Source) Location / / Volume Laterality Blood specimen 07/10/2017 3:06 AM 017 3:06 (specimen) EST AM EST Yuan Webber MD POINT OF CARE TEST ORDERABLE S Performing Organization Address City/[facility]/[place] [address] (ABNORMAL) POCT Glucose (07/10/2017 2:10 AM EST) P athologist Signature POC Glucose 203 (H) 65 - 199 [place] mg/dL [facility] Comment: Supplemental ranges: <140 mg/dL before meals <180 mg/dL all other times of the day Specimen Anatomical Collection Method Collection Time Receive d Time (Source) Location / / Volume Laterality Blood specimen 07/10/2017 2:10 AM 017 2:10 (specimen) EST AM EST Yuan Webber MD POINT OF CARE TEST ORDERABLE S Performing Organization Address City/State/ZIP Code Phon e Number [address] POCT Glucose (07/10/2017 1:09 AM EST) P athologist Signature POC Glucose 196 65 - 199 [facility] RYAN mg/dL [facility] Comment: Supplemental ranges: <140 mg/dL before meals <180 mg/dL all other times of the day Specimen Anatomical Collection Method Collection Time Receive d Time (Source) Location / / Volume Laterality Blood specimen 07/10/2017 1:09 AM 017 1:09 (specimen) EST AM EST Yuan Webber MD POINT OF CARE TEST ORDERABLE S Performing Organization Address City/State/[place] [address] POCT Glucose (07/10/2017 12:10 AM EST) P athologist Signature POC Glucose 173 65 - 199 [place] mg/dL [facility] Comment: Supplemental ranges: <140 mg/dL before meals <180 mg/dL all other times of the day Specimen Anatomical Collection Method Collection Time Receive d Time (Source) Location / / Volume Laterality Blood specimen 07/10/2017 12:10 7 (specimen) AM EST 12:10 AM EST Yuan Webber MD POINT OF CARE TEST ORDERABLE S Performing Organization Address City/State/[place] [address] POCT Glucose (07/09/2017 11:01 PM EST) P athologist Signature POC Glucose 140 65 - 199 [place] mg/dL [facility] Comment: Supplemental ranges: <140 mg/dL before meals <180 mg/dL all other times of the day Specimen Anatomical Collection Method Collection Time Receive d Time (Source) Location / / Volume Laterality Blood specimen 07/09/2017 11:01 7 (specimen) PM EST 11:01 PM EST Yuan Webber MD POINT OF CARE TEST ORDERABLE S Performing Organization Address City/State/[place] [address] POCT Glucose (07/09/2017 10:05 PM EST) P athologist Signature POC Glucose 144 65 - 199 [facility] RYAN mg/dL [facility] Comment: Supplemental ranges: <140 mg/dL before meals <180 mg/dL all other times of the day Specimen Anatomical Collection Method Collection Time Receive d Time (Source) Location / / Volume Laterality Blood specimen 07/09/2017 10:05 7 (specimen) PM EST 10:05 PM EST Yuan Webber MD POINT OF CARE TEST ORDERABLE S Performing Organization Address City/State/ZIP Code Phon e Number [address] POCT Glucose (07/09/2017 9:31 PM EST) athologist Signature POC Glucose 121 65 - 199 [place] mg/dL [facility] Comment: Supplemental ranges: <140 mg/dL before meals <180 mg/dL all other times of the day Specimen Anatomical Collection Method Collection Time Receive d Time (Source) Location / / Volume Laterality Blood specimen 07/09/2017 9:31 PM 017 9:31 (specimen) EST PM EST Yuan Webber MD POINT OF CARE TEST ORDERABLE S Performing Organization Address City/[facility]/ZIP Code Phon e Number [address] POCT Glucose (07/09/2017 9:03 PM EST) athologist Signature POC Glucose 98 65 - 199 [place] mg/dL [facility] Comment: Supplemental ranges: <140 mg/dL before meals <180 mg/dL all other times of the day Specimen Anatomical Collection Method Collection Time Receive d Time (Source) Location / / Volume Laterality Blood specimen 07/09/2017 9:03 PM 017 9:03 (specimen) EST PM EST Yuan Webber MD POINT OF CARE TEST ORDERABLE S Performing Organization Address City/[facility]/[place] [address] POCT Glucose (07/09/2017 8:09 PM EST) athologist Signature POC Glucose 117 65 - 199 [place] mg/dL [facility] Comment: Supplemental ranges: <140 mg/dL before meals <180 mg/dL all other times of the day Specimen Anatomical Collection Method Collection Time Receive d Time (Source) Location / / Volume Laterality Blood specimen 07/09/2017 8:09 PM 017 8:09 (specimen) EST PM EST Yuan Webber MD POINT OF CARE TEST ORDERABLE S Performing Organization Address City/State/ZIP Code Phon e Number [address] POCT Glucose (07/09/2017 5:40 PM EST) athologist Signature POC Glucose 155 65 - 199 [place] mg/dL [facility] Comment: Supplemental ranges: <140 mg/dL before meals <180 mg/dL all other times of the day Specimen Anatomical Collection Method Collection Time Receive d Time (Source) Location / / Volume Laterality Blood specimen 07/09/2017 5:40 PM 017 5:40 (specimen) EST PM EST Yuan Webber MD POINT OF CARE TEST ORDERABLE S Performing Organization Address City/[facility]/ZIP Code Phon e Number [address] POCT Glucose (07/09/2017 4:24 PM EST) athologist Signature POC Glucose 164 65 - 199 [facility] RYAN mg/dL [facility] Comment: Supplemental ranges: <140 mg/dL before meals <180 mg/dL all other times of the day Specimen Anatomical Collection Method Collection Time Receive d Time (Source) Location / / Volume Laterality Blood specimen 07/09/2017 4:24 PM 017 4:24 (specimen) EST PM EST Yuan Webber MD POINT OF CARE TEST ORDERABLE S Performing Organization Address City/State/ZIP Code Phon e Number [address] POCT Glucose (07/09/2017 3:19 PM EST) athologist Signature POC Glucose 166 65 - 199 [facility] RYAN mg/dL [facility] Comment: Supplemental ranges: <140 mg/dL before meals <180 mg/dL all other times of the day Specimen Anatomical Collection Method Collection Time Receive d Time (Source) Location / / Volume Laterality Blood specimen 07/09/2017 3:19 PM 017 3:19 (specimen) EST PM EST Yuan Webber MD POINT OF CARE TEST ORDERABLE S Performing Organization Address City/State/[place] [address] POCT Glucose (07/09/2017 2:26 PM EST) athologist Signature POC Glucose 179 65 - 199 [place]HA[place] mg/dL [facility] Comment: Supplemental ranges: <140 mg/dL before meals <180 mg/dL all other times of the day Specimen Anatomical Collection Method Collection Time Receive d Time (Source) Location / / Volume Laterality Blood specimen 07/09/2017 2:26 PM 017 2:26 (specimen) EST PM EST Yuan Webber MD POINT OF CARE TEST ORDERABLE S Performing Organization Address City/[facility]/[place] [address] (ABNORMAL) POCT Glucose (07/09/2017 1:29 PM EST) athologist Signature POC Glucose 210 (H) 65 - 199 [place] mg/dL [facility] Comment: Supplemental ranges: <140 mg/dL before meals <180 mg/dL all other times of the day Specimen Anatomical Collection Method Collection Time Receive d Time (Source) Location / / Volume Laterality Blood specimen 07/09/2017 1:29 PM 017 1:29 (specimen) EST PM EST Yuan Webber MD POINT OF CARE TEST ORDERABLE S Performing Organization Address City/State/[place] [address] POCT Glucose (07/09/2017 12:20 PM EST) athologist Signature POC Glucose 172 65 - 199 [place]HA[place] mg/dL [facility] Comment: Supplemental ranges: <140 mg/dL before meals <180 mg/dL all other times of the day Specimen Anatomical Collection Method Collection Time Receive d Time (Source) Location / / Volume Laterality Blood specimen 07/09/2017 12:20 7 (specimen) PM EST 12:20 PM EST Yuan Webber MD POINT OF CARE TEST ORDERABLE S Performing Organization Address City/State/[place] [address] [facility] Drive POCT Glucose (07/09/2017 11:24 AM EST) P athologist Signature POC Glucose 156 65 - 199 [place] mg/dL [facility] Comment: Supplemental ranges: <140 mg/dL before meals <180 mg/dL all other times of the day Specimen Anatomical Collection Method Collection Time Receive d Time (Source) Location / / Volume Laterality Blood specimen 07/09/2017 11:24 7 (specimen) AM EST 11:24 AM EST Yuan Webber MD POINT OF CARE TEST ORDERABLE S Performing Organization Address City/State/[place] [address] [facility] [address] POCT Glucose (07/09/2017 11:11 AM EST) athologist Signature POC Glucose 172 65 - 199 [place] mg/dL [facility] Comment: Supplemental ranges: <140 mg/dL before meals <180 mg/dL all other times of the day Specimen Anatomical Collection Method Collection Time Receive d Time (Source) Location / / Volume Laterality Blood specimen 07/09/2017 11:11 7 (specimen) AM EST 11:11 AM EST Yuan Webber MD POINT OF CARE TEST ORDERABLE S Performing Organization Address City/State/[place] [address] [facility] POCT Glucose (07/09/2017 10:08 AM EST) athologist Signature POC Glucose 176 65 - 199 [place] mg/dL [facility] Comment: Supplemental ranges: <140 mg/dL before meals <180 mg/dL all other times of the day Specimen Anatomical Collection Method Collection Time Receive d Time (Source) Location / / Volume Laterality Blood specimen 07/09/2017 10:08 7 (specimen) AM EST 10:08 AM EST Yuan Webber MD POINT OF CARE TEST ORDERABLE S Performing Organization Address City/State/[place] [address] POCT Glucose (07/09/2017 8:02 AM EST) P athologist Signature POC Glucose 178 65 - 199 [facility] mg/dL [facility] Comment: Supplemental ranges: <140 mg/dL before meals <180 mg/dL all other times of the day Specimen Anatomical Collection Method Collection Time Receive d Time (Source) Location / / Volume Laterality Blood specimen 07/09/2017 8:02 AM 017 8:02 (specimen) EST AM EST Yuan Webber MD POINT OF CARE TEST ORDERABLE S Performing Organization Address City/State/[place] [address] (ABNORMAL) BLOOD GAS 2 ARTERIAL (07/09/2017 5:37 AM EST) Analysis Performed At Patho logist Time Signature pH Art 7.36 7.35 - [facility] 7.45 [facility] pCO2 Art 38 35 - 45 [facility] LABORATORY pO2 Art 79 (L) 85 - 104 [facility] LABORATORY HCO3 Art 20.9 20.0 - [facility] 26.0 [facility] mmol/L [facility] BE Art -4.6 (L) -3.0 - 3.0 [facility] mmol/L [facility] Hgb Blood Gas 10.5 (L) 13.7 - [facility] 16.5 gm/dL [facility] O2HB Art 93.8 (L) 94.0 - [facility] 97.0 % [facility] COHB Art 0.3 % ST. [...] Blood 113 (H) 98 - 107 mmol/L [facility] Gluc Whole Bld 175 65 - 199 mg/dL [facility] Comment: Diabetes: >=200 mg/dL plus symp toms. Lactate WB 1.0 0.5 - 2.2 mmol/L [facility] FIO2 Art 40 % [facility] PF Ratio Art 198 [facility] Specimen Anatomical Collection Method Collection Time Receive d Time (Source) Location / / Volume Laterality Blood specimen 07/09/2017 5:37 AM 017 5:37 (specimen) EST AM EST Yuan Webber MD CHEMISTRY ORDERABLES Performing Organization Address City/[facility]/[place] [address] POCT Glucose (07/09/2017 3:27 AM EST) P athologist Signature POC Glucose 192 65 - 199 [facility] mg/dL [facility] Comment: Supplemental ranges: <140 mg/dL before meals <180 mg/dL all other times of the day Specimen Anatomical Collection Method Collection Time Receive d Time (Source) Location / / Volume Laterality Blood specimen 07/09/2017 3:27 AM 017 3:27 (specimen) EST AM EST Yuan Webber MD POINT OF CARE TEST ORDERABLE S Performing Organization Address City/[facility]/[place] [address] (ABNORMAL) Basic Metabolic Panel (non-fasting) (07/09/2017 2:30 AM EST) P athologist Signature Glucose Lvl 179 65 - 199 [facility] mg/dL [facility] Comment: Diabetes: >=200 mg/dL plus symp toms BUN 17 10 - 20 mg/dL [facility] Creatinine 1.34 0.80 - 1.50 [...] 15 mmol/L [facility] Calcium 7.1 (L) 8.5 - 10.5 mg/dL [facility] Comment: result [id number]-[id number] Estimated GFR 53 (L) >=60 [facility] Comment: The reported eGFR should be multiplied b y 1.2 for patients. The MDRD is not an appropriate measure o f renal function for patients with body mass extremes or in patients with acute kidney failure. http://[employer]/DHnkdep [email or web address]/DHMCnkf Specimen Anatomical Collection Method Collection Time Receive d Time (Source) Location / / Volume Laterality Blood specimen Venous Draw / 07/09/2017 2:30 AM 2016 2:42 (specimen) Unknown EST AM EST Resulting Agency Comment Spec In Lab Yuan Webber MD CHEMISTRY ORDERABLES Performing Organization Address City/State/[place] [address] (ABNORMAL) Potassium (07/09/2017 2:30 AM EST) P athologist Signature Potassium 5.1 (H) 3.5 - 5.0 [facility] mmol/L [facility] Comment: Please note: ??Patients with [...] City/State/[place] [address] (ABNORMAL) Hemogram (07/09/2017 2:30 AM EST) Analysis Performed At Patho logist Time Signature WBC 12.5 (H) 4.0 - 9.5 [facility] x10(3)/[facility] LABORATORY RBC 3.38 (L) 4.58 - [facility] x10(6)/[facility] LABORATORY Hemoglobin 10.1 (L) 13.7 - [facility] 16.5 gm/dL [facility] Hematocrit 30.3 (L) 40.5 - [facility] 48.5 % [facility] MCV 89.6 82.9 - [facility] 93.1 [facility] LABORATORY MCH 29.9 27.5 - [place] 32.1 pg [facility] MCHC 33.3 32.0 - [facility] 35.7 gm/dL [facility] Platelets 127 (L) 145 - 357 [facility] x10(3)/[facility] LABORATORY RDWSD 49.3 (H) 36.0 - [place] 45.0 [facility] LABORATORY RDWCV 15.2 (H) 11.4 - [facility] RYAN 13.8 % [facility] MPV 9.9 7.6 - 12.9 [facility] LABORATORY nRBC % Auto 0.0 % [facility] nRBC Abs Auto 0.000 0.000 - [place] 0.000 [facility] x10(3)/[facility] LABORATORY Specimen Anatomical Collection Method Collection Time Receive d Time (Source) Location / / Volume Laterality Blood specimen 07/09/2017 2:30 AM 017 2:41 (specimen) EST AM EST Resulting Agency Comment Spec In Lab Yuan Webber MD HEMATOLOGY ORDERABLES Performing Organization Address City/[facility]/ZIP Code Phon e Number [address] POCT Glucose (07/09/2017 2:10 AM EST) P athologist Signature POC Glucose 169 65 - 199 [place] mg/dL [facility] Comment: Supplemental ranges: <140 mg/dL before meals <180 mg/dL all other times of the day Specimen Anatomical Collection Method Collection Time Receive d Time (Source) Location / / Volume Laterality Blood specimen 07/09/2017 2:10 AM 017 2:10 (specimen) EST AM EST Yuan Webber MD POINT OF CARE TEST ORDERABLE S Performing Organization Address City/[facility]/ZIP Code Phon e Number [place] [address] POCT Glucose (07/09/2017 1:01 AM EST) P athologist Signature POC Glucose 173 65 - 199 BARBARA ZHAORYAN mg/dL [facility] Comment: Supplemental ranges: <140 mg/dL before meals <180 mg/dL all other times of the day Specimen Anatomical Collection Method Collection Time Receive d Time (Source) Location / / Volume Laterality Blood specimen 07/09/2017 1:01 AM 017 1:01 (specimen) EST AM EST Yuan Webber MD POINT OF CARE TEST ORDERABLE S Performing Organization Address City/[facility]/ZIP Code Phon e Number [address] Blood culture (07/09/2017 12:40 AM EST) [facility] Method Time Signature Blood Culture No growth BARBARA DAVIS at 5 days. [facility] Specimen Anatomical Collection Method Collection Time Receive d Time (Source) Location / / Volume Laterality Blood specimen STRUCTURE OF RIGHT 07/09/2017 12:40 3:58 (specimen) UPPER LIMB / AM EST AM EST Unknown Resulting Agency Comment Spec In Lab Yuan Webber MD MICROBIOLOGY - BLOOD ORDERAB LES Performing Organization Address City/State/[place] [address] Blood culture (07/09/2017 12:30 AM EST) [facility] Method Time Signature Blood Culture No growth BARBARA DAVIS at 5 days. [facility] Specimen Anatomical Collection Method Collection Time Receive d Time (Source) Location / / Volume Laterality Blood specimen STRUCTURE OF LEFT 07/09/2017 12:30 1211/2016 3:59 (specimen) UPPER LIMB / AM EST AM EST Unknown Resulting Agency Comment Spec In Lab Yuan Webber MD MICROBIOLOGY - BLOOD ORDERAB LES Performing Organization Address City/[facility]/[place] [address] (ABNORMAL) Urinalysis Microscopic Exam (07/09/2017 12:05 AM EST) Analysis Performed At Patho logist Time Signature RBC UA 32 (H) 0 - 3 /HPF [facility] WBC UA 5 (H) 0 - 3 /HPF [facility] Squam Epith UA <1 <=4 /HPF [facility] Hyaline Cast 17 (H) 0 - 2 /LPF [facility] Gran Cast UA 1 (H) <=0 /LPF [facility] Uric Ac Bianca Rare (A) None /HPF [facility] Specimen (Source) Anatomical Collection Method Collection Time Re ceived Time Location / / Volume Laterality Urine specimen 07/09/2017 12:05 07/09/ 7 obtained via AM EST 12:39 AM EST indwelling urinary catheter (specimen) Resulting Agency Comment Spec In Lab Yuan Webber MD URINE ORDERABLES Performing Organization Address City/State/[place] [address] (ABNORMAL) Urinalysis with reflex Culture (07/09/2017 12:05 AM EST) [facility] Method Time Signature Glucose UA Negative Negative BARBARA DAVIS mg/dL [facility] Protein UA 30 (A) Negative [facility] Bilirubin UA Negative Negative [facility] Comment: Clinical correlation required for [...] [facility] Nitrite UA Negative Negative [facility] Leukocytes UA Negative Negative [facility] LABORATORY Appearance UA Hazy (A) Clear [facility] Spec [place] UA 1.025 1.002 - 1.030 [facility] Color UA Yellow Yellow [facility] LABORATORY Culture Reflexed No [facility] Specimen (Source) Anatomical Collection Method Collection Time Re ceived Time Location / / Volume Laterality Urine specimen 07/09/2017 12:05 7 obtained via AM EST 12:39 AM EST indwelling urinary catheter (specimen) Resulting Agency Comment Spec In Lab Yuan Webber MD URINE ORDERABLES Performing Organization Address City/[facility]/ZIP [place] [address] POCT Glucose (07/08/2017 11:01 PM EST) P athologist Signature POC Glucose 191 65 - 199 [facility] mg/dL [facility] Comment: Supplemental ranges: <140 mg/dL before meals <180 mg/dL all other times of the day Specimen Anatomical Collection Method Collection Time Receive d Time (Source) Location / / Volume Laterality Blood specimen 07/08/2017 11:01 7 (specimen) PM EST 11:01 PM EST Yuan Webber MD POINT OF CARE TEST ORDERABLE S Performing Organization Address City/State/[place] [address] POCT Glucose (07/08/2017 10:04 PM EST) athologist Signature POC Glucose 198 65 - 199 [facility] RYAN mg/dL [facility] Comment: Supplemental ranges: <140 mg/dL before meals <180 mg/dL all other times of the day Specimen Anatomical Collection Method Collection Time Receive d Time (Source) Location / / Volume Laterality Blood specimen 07/08/2017 10:04 7 (specimen) PM EST 10:04 PM EST Yuan Webber MD POINT OF CARE TEST ORDERABLE S Performing Organization Address City/State/ZIP Code Phon e Number [address] Prepare Albumin 5% in [...] Address City/State/ZIP Code Phon e Number [address] POCT Glucose (07/08/2017 8:28 PM EST) athologist Signature POC Glucose 195 65 - 199 BARBARA RYAN mg/dL [facility] Comment: Supplemental ranges: <140 mg/dL before meals <180 mg/dL all other times of the day Specimen Anatomical Collection Method Collection Time Receive d Time (Source) Location / / Volume Laterality Blood specimen 07/08/2017 8:28 PM 017 8:28 (specimen) EST PM EST Yuan Webber MD POINT OF CARE TEST ORDERABLE S Performing Organization Address City/State/[place] [address] (ABNORMAL) POCT Glucose (07/08/2017 7:13 PM EST) P athologist Signature POC Glucose 220 (H) 65 - 199 [facility] mg/dL [facility] Comment: Supplemental ranges: <140 mg/dL before meals <180 mg/dL all other times of the day Specimen Anatomical Collection Method Collection Time Receive d Time (Source) Location / / Volume Laterality Blood specimen 07/08/2017 7:13 PM 017 7:13 (specimen) EST PM EST Yuan Webber MD POINT OF CARE TEST ORDERABLE S Performing Organization Address City/State/ZIP Code Phon e Number [address] POCT Glucose (07/08/2017 5:04 PM EST) athologist Signature POC Glucose 147 65 - 199 [facility] mg/dL [facility] Comment: Supplemental ranges: <140 mg/dL before meals <180 mg/dL all other times of the day Specimen Anatomical Collection Method Collection Time Receive d Time (Source) Location / / Volume Laterality Blood specimen 07/08/2017 5:04 PM 017 5:04 (specimen) EST PM EST Yuan Webber MD POINT OF CARE TEST ORDERABLE S Performing Organization Address City/State/[place] [address] (ABNORMAL) BLOOD GAS 2 ARTERIAL (07/08/2017 4:13 PM EST) Analysis Performed At Patho logist Time Signature pH Art 7.38 7.35 - [facility] 7.45 [facility] pCO2 Art 36 35 - 45 [facility] LABORATORY pO2 Art 91 85 - 104 [facility] LABORATORY HCO3 Art 20.9 20.0 - [facility] 26.0 [facility] mmol/L [facility] LABORATORY BE Art -4.2 (L) -3.0 - 3.0 [facility] mmol/L [facility] Hgb Blood Gas 11.7 (L) 13.7 - [facility] 16.5 gm/dL [facility] O2HB Art 95.1 94.0 - [facility] 97.0 % [facility] COHB Art 0.6 % ST. [...] Blood 110 (H) 98 - 107 mmol/L [facility] Gluc Whole Bld 155 65 - 199 mg/dL [facility] Comment: Diabetes: >=200 mg/dL plus symp toms. Lactate WB 1.4 0.5 - 2.2 mmol/L [facility] LABORATORY FIO2 Art 40 % [facility] LABORATORY PF Ratio Art 228 [facility] LABOR[facility]ORY Specimen Anatomical Collection Method Collection Time Receive d Time (Source) Location / / Volume Laterality Blood specimen 07/08/2017 4:13 PM 017 4:13 (specimen) EST PM EST Yuan Webber MD CHEMISTRY ORDERABLES Performing Organization Address City/State/[place] [address] POCT Glucose (07/08/2017 4:01 PM EST) P athologist Signature POC Glucose 148 65 - 199 [facility] mg/dL [facility] Comment: Supplemental ranges: <140 mg/dL before meals <180 mg/dL all other times of the day Specimen Anatomical Collection Method Collection Time Receive d Time (Source) Location / / Volume Laterality Blood specimen 07/08/2017 4:01 PM 017 4:01 (specimen) EST PM EST Yuan Webber MD POINT OF CARE TEST ORDERABLE S Performing Organization Address City/State/ZIP Code Phon e Number [address] POCT Glucose (07/08/2017 3:21 PM EST) athologist Signature POC Glucose 118 65 - 199 BARBARA ZHAORYAN mg/dL [facility] Comment: Supplemental ranges: <140 mg/dL before meals <180 mg/dL all other times of the day Specimen Anatomical Collection Method Collection Time Receive d Time (Source) Location / / Volume Laterality Blood specimen 07/08/2017 3:21 PM 017 3:21 (specimen) EST PM EST Yuan Webber MD POINT OF CARE TEST ORDERABLE S Performing Organization Address City/State/[place] [address] POCT Glucose (07/08/2017 2:01 PM EST) athologist Signature POC Glucose 129 65 - 199 BARBARA RYAN mg/dL [facility] Comment: Supplemental ranges: <140 mg/dL before meals <180 mg/dL all other times of the day Specimen Anatomical Collection Method Collection Time Receive d Time (Source) Location / / Volume Laterality Blood specimen 07/08/2017 2:01 PM 017 2:01 (specimen) EST PM EST Yuan Webber MD POINT OF CARE TEST ORDERABLE S Performing Organization Address City/State/[place] [address] POCT Glucose (07/08/2017 11:53 AM EST) athologist Signature POC Glucose 156 65 - 199 BARBARA RYAN mg/dL [facility] Comment: Supplemental ranges: <140 mg/dL before meals <180 mg/dL all other times of the day Specimen Anatomical Collection Method Collection Time Receive d Time (Source) Location / / Volume Laterality Blood specimen 07/08/2017 11:53 7 (specimen) AM EST 11:53 AM EST Yuan Webber MD POINT OF CARE TEST ORDERABLE S Performing Organization Address City/State/ZIP Code Phon e Number [address] POCT Glucose (07/08/2017 11:04 AM EST) athologist Signature POC Glucose 181 65 - 199 [facility] mg/dL [facility] Comment: Supplemental ranges: <140 mg/dL before meals <180 mg/dL all other times of the day Specimen Anatomical Collection Method Collection Time Receive d Time (Source) Location / / Volume Laterality Blood specimen 07/08/2017 11:04 7 (specimen) AM EST 11:04 AM EST Yuan Webber MD POINT OF CARE TEST ORDERABLE S Performing Organization Address City/[facility]/[place] [address] (ABNORMAL) POCT Glucose (07/08/2017 9:24 AM EST) athologist Signature POC Glucose 203 (H) 65 - 199 [facility] mg/dL [facility] Comment: Supplemental ranges: <140 mg/dL before meals <180 mg/dL all other times of the day Specimen Anatomical Collection Method Collection Time Receive d Time (Source) Location / / Volume Laterality Blood specimen 07/08/2017 9:24 AM 017 9:24 (specimen) EST AM EST Yuan Webber MD POINT OF CARE TEST ORDERABLE S Performing Organization Address City/State/[place] [address] APTT (07/08/2017 8:40 AM EST) athologist Signature PTT 33 25 - [address] [facility] Comment: The recommended therapeutic range for fu ll dose, unfractionated heparin at [facility] is 80 [...] MD HEMATOLOGY ORDERABLES Performing Organization Address City/[facility]/[place] [address] (ABNORMAL) Prothrombin Time (07/08/2017 [...] MD HEMATOLOGY ORDERABLES Performing Organization Address City/[facility]/[place] [address] (ABNORMAL) POCT Glucose (07/08/2017 7:38 AM EST) P athologist Signature POC Glucose 232 (H) 65 - 199 [facility] mg/dL [facility] Comment: Supplemental ranges: <140 mg/dL before meals <180 mg/dL all other times of the day Specimen Anatomical Collection Method Collection Time Receive d Time (Source) Location / / Volume Laterality Blood specimen 07/08/2017 7:38 AM 017 7:38 (specimen) EST AM EST Yuan Webber MD POINT OF CARE TEST ORDERABLE S Performing Organization Address City/[facility]/[place] [address] (ABNORMAL) POCT Glucose (07/08/2017 7:07 AM EST) athologist Signature POC Glucose 234 (H) 65 - 199 [facility] mg/dL [facility] Comment: Supplemental ranges: <140 mg/dL before meals <180 mg/dL all other times of the day Specimen Anatomical Collection Method Collection Time Receive d Time (Source) Location / / Volume Laterality Blood specimen 07/08/2017 7:07 AM 017 7:07 (specimen) EST AM EST Yuan Webber MD POINT OF CARE TEST ORDERABLE S Performing Organization Address City/State/[place] [address] (ABNORMAL) POCT Glucose (07/08/2017 6:04 AM EST) athologist Signature POC Glucose 225 (H) 65 - 199 [facility] mg/dL [facility] Comment: Supplemental ranges: <140 mg/dL before meals <180 mg/dL all other times of the day Specimen Anatomical Collection Method Collection Time Receive d Time (Source) Location / / Volume Laterality Blood specimen 07/08/2017 6:04 AM 017 6:04 (specimen) EST AM EST Yuan Webber MD POINT OF CARE TEST ORDERABLE S Performing Organization Address City/State/[place] [address] (ABNORMAL) POCT Glucose (07/08/2017 5:31 AM EST) athologist Signature POC Glucose 216 (H) 65 - 199 [facility] mg/dL [facility] Comment: Supplemental ranges: <140 mg/dL before meals <180 mg/dL all other times of the day Specimen Anatomical Collection Method Collection Time Receive d Time (Source) Location / / Volume Laterality Blood specimen 07/08/2017 5:31 AM 017 5:31 (specimen) EST AM EST Yuan Webber MD POINT OF CARE TEST ORDERABLE S Performing Organization Address City/State/[place] [address] (ABNORMAL) POCT Glucose (07/08/2017 4:52 AM EST) P athologist Signature POC Glucose 257 (H) 65 - 199 [facility] mg/dL [facility] Comment: Supplemental ranges: <140 mg/dL before meals <180 mg/dL all other times of the day Specimen Anatomical Collection Method Collection Time Receive d Time (Source) Location / / Volume Laterality Blood specimen 07/08/2017 4:52 AM 017 4:52 (specimen) EST AM EST Daphne Shahid MD POINT OF CARE TEST ORDERABLE S Performing Organization Address City/State/[place] [address] (ABNORMAL) BLOOD GAS 2 ARTERIAL (07/08/2017 4:04 AM EST) Analysis Performed At Patho logist Time Signature pH Art 7.30 (L) 7.35 - [facility] 7.45 [facility] pCO2 Art 41 35 - 45 [facility] LABORATORY pO2 Art 83 (L) 85 - 104 [facility] LABORATORY HCO3 Art 19.6 (L) 20.0 - [facility] 26.0 [facility] mmol/[facility] LABORATORY BE Art -6.8 (L) -3.0 - 3.0 [facility] mmol/L [facility] Hgb Blood Gas 12.2 (L) 13.7 - [facility] 16.5 gm/dL [facility] O2HB Art 93.5 (L) 94.0 - [facility] 97.0 % [facility] COHB Art 0.4 % ST. [...] Whole Blood 107 98 - 107 mmol/L [facility] Gluc Whole Bld 274 (H) 65 - 199 mg/dL [facility] Comment: Diabetes: >=200 mg/dL plus symp toms. Lactate WB 4.4 (Critical) 0.5 - 2.2 mmol/L [facility] Comment: Noted by biomedical instrument technician. FIO2 Art 40 % [facility] LABORATORY PF Ratio Art 208 [facility] LABORATORY Specimen Anatomical Collection Method Collection Time Receive d Time (Source) Location / / Volume Laterality Blood specimen 07/08/2017 4:04 AM 017 4:04 (specimen) EST AM EST Daphne Shahid MD CHEMISTRY ORDERABLES Performing Organization Address City/[facility]/ZIP Code Phon e Number [address] Scan, Peripheral Blood (07/08/2017 [...] Organization Address City/State/[place] [address] (ABNORMAL) Differential, Automated (07/08/2017 4:00 AM EST) Patholo gist Method Time Signature Neutrophils % 85.4 % [facility] Neutr Abs (ANC) 16.07 (H) 1.70 - [facility] 6.10 [facility] x10(3)/[facility] L LABORATORY Lymphocytes % 3.5 % [facility] Lymphocytes Abs 0.6 (L) 0.9 - 3.2 [facility] x10(3)/[facility] LABORATORY Monocytes % 10.4 % [facility] Monocyte Abs 2.0 (H) 0.3 - 0.9 [facility] x10(3)/[facility] LABORATORY Eosinophils % 0.0 % [facility] Eosinophils Abs 0.0 0.0 - 0.4 [facility] x10(3)/[facility] LABORATORY Basophils % 0.1 % [facility] Basophils Abs 0.0 0.0 - 0.1 [facility] x10(3)/[facility] LABORATORY Immature Gran % 0.60 % ST. [...] City/State/[place] [address] (ABNORMAL) Hemogram (07/08/2017 4:00 AM EST) Analysis Performed At Patho logist Time Signature WBC 18.8 (H) 4.0 - 9.5 [facility] x10(3)/[facility] LABORATORY RBC 4.00 (L) 4.58 - [facility] 5.54 [facility] x10(6)/[facility] LABORATORY Hemoglobin 11.9 (L) 13.7 - [facility] 16.5 gm/dL [facility] Hematocrit 35.9 (L) 40.5 - BARBARA DAVIS 48.5 % [facility] MCV 89.8 82.9 - [facility] 93.1 [facility] LABORATORY MCH 29.8 27.5 - BARBARA OLIVASCK 32.1 pg [facility] MCHC 33.1 32.0 - BARBARA DAVIS 35.7 gm/dL [facility] Platelets 232 145 - 357 [facility] x10(3)/[facility] LABORATORY RDWSD 47.6 (H) 36.0 - BARBARA DAVIS 45.0 [facility] LABORATORY RDWCV 14.5 (H) 11.4 - BARBARA RYAN 13.8 % [facility] MPV 9.5 7.6 - 12.9 [facility] LABORATORY nRBC % Auto 0.0 % [facility] nRBC Abs Auto 0.000 0.000 - BARBARA ZHAORYAN 0.000 [facility] x10(3)/[facility] LABORATORY Specimen Anatomical Collection Method Collection Time Receive d Time (Source) Location / / Volume Laterality Blood specimen 07/08/2017 4:00 AM 017 4:09 (specimen) EST AM EST Resulting Agency Comment Spec In Lab Yuan Webber MD HEMATOLOGY ORDERABLES Performing Organization Address City/State/ZIP Code Phon e Number [place] [id number] (ABNORMAL) Electrolytes panel (07/08/2017 4:00 AM EST) P athologist Signature Sodium 139 135 - 145 [facility] mmol/L [facility] Potassium 4.7 3.5 - 5.0 [facility] mmol/L [facility] Comment: result rechecked-[id number] Please note: [...] 21 (L) 22 - 31 mmol/L [facility] Anion Gap 14 5 - 15 mmol/L [facility] LABORATORY Specimen Anatomical Collection Method Collection Time Receive d Time (Source) Location / / Volume Laterality Blood specimen 07/08/2017 4:00 AM 017 4:10 (specimen) EST AM EST Resulting Agency Comment Spec In Lab Yuan Webber MD CHEMISTRY ORDERABLES Performing Organization Address City/State/[place] [address] (ABNORMAL) Cardiac Enzymes (LEB/CGP) (07/08/2017 4:00 AM EST) P athologist Signature Troponin-T 1.88 (H) 0.00 - [facility] 0.00 ng/mL [facility] Comment: The 99th percentile for [...] additional sample may be indicated. Reference: Third Tovey Definition of Myocardial Infarction. Journal of the [place] [employer] 2012;60:1581-98 CK, Total 413 [...] Address City/State/ZIP Code Phon e Number [address] (ABNORMAL) Glucose, fasting (07/08/2017 4:00 AM EST) P athologist Signature Glucose 287 (H) 65 - 99 [facility] Fasting mg/dL [facility] Comment: ?Fasting* Glucose Interpretive C [...] of Diabetes Mellitus, Position Statement from the [place] [employer]. ??Diabete s Care, Volume 33, Supplement 1, Jul 2009 Specimen Anatomical Collection Method Collection Time Receive d Time (Source) Location / / Volume Laterality Blood specimen 07/08/2017 4:00 AM 017 4:09 (specimen) EST AM EST Resulting Agency Comment Spec In Lab Yuan Webber MD CHEMISTRY ORDERABLES Performing Organization Address City/[facility]/[place] [address] (ABNORMAL) Creatinine (07/08/2017 4:00 AM EST) Analysis Performed At Patho logist Time Signature Creatinine 1.55 (H) 0.80 - [facility] 1.50 mg/dL [facility] Estimated GFR 44 (L) >=60 [facility] Comment: The reported eGFR should be multiplied b y 1.2 for patients. The MDRD is not an appropriate measure o f renal function for patients with body mass extremes or in patients with acute kidney failure. http://[employer]/DHnkdep http://[employer].MediSens/DHMCnkf Specimen Anatomical Collection Method Collection Time Receive d Time (Source) Location / / Volume Laterality Blood specimen 07/08/2017 4:00 AM 017 4:09 (specimen) EST AM EST Resulting Agency Comment Spec In Lab Yuan Webber MD CHEMISTRY ORDERABLES Performing Organization Address City/[facility]/ZIP Code Phon e Number [address] BUN (07/08/2017 4:00 AM EST) P athologist Signature BUN 16 10 - 20 [facility] mg/dL [facility] Specimen Anatomical Collection Method Collection Time Receive d Time (Source) Location / / Volume Laterality Blood specimen 07/08/2017 4:00 AM 017 4:09 (specimen) EST AM EST Resulting Agency Comment Spec In Lab Yuan Webber MD CHEMISTRY ORDERABLES Performing Organization Address City/[facility]/[place] [address] (ABNORMAL) POCT Glucose (07/08/2017 3:00 AM EST) P athologist Signature POC Glucose 273 (H) 65 - 199 [facility] mg/dL [facility] Comment: Supplemental ranges: <140 mg/dL before meals <180 mg/dL all other times of the day Specimen Anatomical Collection Method Collection Time Receive d Time (Source) Location / / Volume Laterality Blood specimen 07/08/2017 3:00 AM 017 3:00 (specimen) EST AM EST Daphne Shahid MD POINT OF CARE TEST ORDERABLE S Performing Organization Address City/[facility]/ZIP Code Phon e Number [address] (ABNORMAL) POCT Glucose (07/08/2017 1:57 AM EST) P athologist Signature POC Glucose 288 (H) 65 - 199 [facility] [facility] mg/dL [facility] Comment: Supplemental ranges: <140 mg/dL before meals <180 mg/dL all other times of the day Specimen Anatomical Collection Method Collection Time Receive d Time (Source) Location / / Volume Laterality Blood specimen 07/08/2017 1:57 AM 017 1:57 (specimen) EST AM EST Daphne Shahid MD POINT OF CARE TEST ORDERABLE S Performing Organization Address City/[facility]/[place] [address] (ABNORMAL) POCT Glucose (07/08/2017 1:01 AM EST) athologist Signature POC Glucose 315 (H) 65 - 199 [facility] mg/dL [facility] Comment: Supplemental ranges: <140 mg/dL before meals <180 mg/dL all other times of the day Specimen Anatomical Collection Method Collection Time Receive d Time (Source) Location / / Volume Laterality Blood specimen 07/08/2017 1:01 AM 017 1:01 (specimen) EST AM EST Daphne Shahid MD POINT OF CARE TEST ORDERABLE S Performing Organization Address City/[facility]/[place] [address] (ABNORMAL) BLOOD GAS 2 ARTERIAL (07/08/2017 12:09 AM EST) athologist Signature pH Art 7.26 7.35 - [facility] (Critical) 7.45 [facility] Comment: Noted by biomedical instrument technician. pCO2 Art 41 35 - 45 mmHg [facility] pO2 Art 96 85 - 104 mmHg [facility] HCO3 Art 17.7 (L) 20.0 - 26.0 mmol/L [facility] BE Art -9.4 (L) -3.0 - 3.0 mmol/L [facility] Hgb Blood Gas 12.4 (L) 13.7 - 16.5 gm/dL [facility] O2HB Art 94.7 94.0 - 97.0 % [facility] COHB Art 0.2 % WHITE [...] Blood 109 (H) 98 - 107 mmol/L [facility] Gluc Whole Bld 315 (H) 65 - 199 mg/dL [facility] Comment: Diabetes: >=200 mg/dL plus symp toms. Lactate WB 7.6 (Critical) 0.5 - 2.2 mmol/L [facility] Comment: Noted by biomedical instrument technician. FIO2 Art 40 % [facility] PF Ratio Art 240 [facility] Specimen Anatomical Collection Method Collection Time Receive d Time (Source) Location / / Volume Laterality Blood specimen Arterial Draw / 07/08/2017 12:09 2016 5:31 (specimen) Unknown AM EST AM EST Resulting Agency Comment Spec In Lab Samy Maldonado MD CHEMISTRY ORDERABLES Performing Organization Address City/State/[place] [address] (ABNORMAL) POCT Glucose (07/07/2017 10:56 PM EST) P athologist Signature POC Glucose 292 (H) 65 - 199 [facility] mg/dL [facility] Comment: Supplemental ranges: <140 mg/dL before meals <180 mg/dL all other times of the day Specimen Anatomical Collection Method Collection Time Receive d Time (Source) Location / / Volume Laterality Blood specimen 07/07/2017 10:56 7 (specimen) PM EST 10:56 PM EST Daphne Shahid MD POINT OF CARE TEST ORDERABLE S Performing Organization Address City/State/[place] [address] (ABNORMAL) BLOOD GAS 2 ARTERIAL (07/07/2017 10:04 PM EST) athologist Signature pH Art 7.22 7.35 - [facility] (Critical) 7.45 [facility] Comment: Noted by biomedical instrument technician. pCO2 Art 42 35 - 45 mmHg [facility] pO2 Art 94 85 - 104 mmHg [facility] HCO3 Art 16.9 (L) 20.0 - 26.0 mmol/L [facility] BE Art -10.7 (L) -3.0 - 3.0 mmol/L [facility] Hgb Blood Gas 13.0 (L) 13.7 - 16.5 gm/dL [facility] O2HB Art 93.8 (L) 94.0 - 97.0 % [facility] COHB Art 0.7 % WHITE [...] Blood 3.3 (L) 3.5 - 5.0 mmol/L [facility] [...] Whole Blood 107 98 - 107 mmol/L [facility] Gluc Whole Bld 304 (H) 65 - 199 mg/dL [facility] Comment: Diabetes: >=200 mg/dL plus symp toms. Lactate WB 8.2 (Critical) 0.5 - 2.2 mmol/L [facility] Comment: Noted by biomedical instrument technician. FIO2 Art 40 % [facility] PF Ratio Art 235 [facility] Specimen Anatomical Collection Method Collection Time Receive d Time (Source) Location / / Volume Laterality Blood specimen 07/07/2017 10:04 7 (specimen) PM EST 10:04 PM EST Daphne Shahid MD CHEMISTRY ORDERABLES Performing Organization Address [facility]/ZIP [facility] Phon e Number [address] (ABNORMAL) Hemoglobin (07/07/2017 10:00 PM EST) P athologist Signature Hemoglobin 12.8 (L) 13.7 - [facility] 16.5 gm/dL [facility] Specimen Anatomical Collection Method Collection Time Receive d Time (Source) Location / / Volume Laterality Blood specimen 07/07/2017 10:00 7 (specimen) PM EST 10:13 PM EST Resulting Agency Comment Spec In Lab Yuan Webber MD HEMATOLOGY ORDERABLES Performing Organization Address City/[facility]/[place] [address] (ABNORMAL) Potassium (07/07/2017 10:00 PM EST) P athologist Signature Potassium 3.4 (L) 3.5 - 5.0 [facility] mmol/L [facility] Comment: Please note: ??Patients with [...] Organization Address City/State/[place] [address] (ABNORMAL) POCT Glucose (07/07/2017 8:49 PM EST) P athologist Signature POC Glucose 241 (H) 65 - 199 [facility] mg/dL [facility] Comment: Supplemental ranges: <140 mg/dL before meals <180 mg/dL all other times of the day Specimen Anatomical Collection Method Collection Time Receive d Time (Source) Location / / Volume Laterality Blood specimen 07/07/2017 8:49 PM 017 8:49 (specimen) EST PM EST Daphne Shahid MD POINT OF CARE TEST ORDERABLE S Performing Organization Address City/[facility]/[place] [address] Prepare Albumin 5% in [...] BLOOD BANK ORDERABLES Performing Organization Address City/[facility]/[place] [address] EKG 12 Lead (07/07/2017 7:17 PM EST) Component Value Ref Range Test Analysis Performed Pathologis t Method Time At Signature Ventricular rate 75 BPM MUSE SYSTEM Atrial Rate 75 BPM MUSE SYSTEM P-R Interval 168 ms MUSE SYSTEM QRS Duration 104 ms MUSE SYSTEM Q-T Interval 462 ms MUSE SYSTEM QTC Calculated 515 ms MUSE SYSTEM (Bezet) Calculated P [place] 52 degrees MUSE SYSTEM Calculated R [place] -40 degrees MUSE SYSTEM Calculated T [place] 39 degrees MUSE SYSTEM INTERPRETATION Normal sinus [...] athologist Signature pH Art 7.21 7.35 - [facility] (Critical) 7.45 [facility] Comment: Noted by biomedical instrument technician. pCO2 Art 50 (H) 35 - 45 mmHg [facility] pO2 Art 238 (H) 85 - 104 mmHg [facility] HCO3 Art 19.8 (L) 20.0 - 26.0 mmol/L [facility] BE Art -8.1 (L) -3.0 - 3.0 mmol/L [facility] Hgb Blood Gas 12.8 (L) 13.7 - 16.5 gm/dL [facility] O2HB Art 97.5 (H) 94.0 - 97.0 % [facility] COHB Art 0.5 % WHITE [...] Blood 3.0 (Critical) 3.5 - 5.0 mmol/L [facility] Comment: Noted by biomedical instrument technician. Please note: Patients with WBC >100,000 may have falsely elevated Potassium levels. Contact the Clinical Chemistry L aboratory if there are any questions. ICa Whole Blood 1.07 (L) 1.15 - 1.33 mmol/L [facility] Comment: Note: ??Total bilirubin higher than 20 m g/dL may lead to falsely low ionized calcium. CL Whole Blood 107 98 - 107 mmol/L [facility] Gluc Whole Bld 270 (H) 65 - 199 mg/dL [facility] Comment: Diabetes: >=200 mg/dL plus symp toms. Lactate WB 4.9 (Critical) 0.5 - 2.2 mmol/L [facility] Comment: Noted by biomedical instrument technician. FIO2 Art 100 % [facility] PF Ratio Art 238 [facility] Specimen Anatomical Collection Method Collection Time Receive d Time (Source) Location / / Volume Laterality Blood specimen 07/07/2017 6:57 PM 017 6:57 (specimen) EST PM EST Daphne Shahid MD CHEMISTRY ORDERABLES Performing Organization Address City/State/[place] [address] (ABNORMAL) BLOOD GAS 2 ARTERIAL (07/07/2017 5:31 PM EST) athologist Signature pH Art 7.29 7.35 - [facility] (Critical) 7.45 [facility] Comment: Noted by biomedical instrument technician. pCO2 Art 48 (H) 35 - 45 mmHg [facility] pO2 Art 137 (H) 85 - 104 mmHg [facility] HCO3 Art 22.4 20.0 - 26.0 mmol/L [facility] BE Art -4.3 (L) -3.0 - 3.0 mmol/L [facility] Hgb Blood Gas 10.0 (L) 13.7 - 16.5 gm/dL [facility] O2HB Art 97.3 (H) 94.0 - 97.0 % [facility] COHB Art 0.3 % WHITE [...] Whole Blood 105 98 - 107 mmol/L [facility] Gluc Whole Bld 293 (H) [...] MD CHEMISTRY ORDERABLES Performing Organization Address City/[facility]/ZIP Code Phon e Number [address] Fibrinogen (07/07/2017 5:30 PM EST) P athologist Signature Fibrinogen 224 180 - 510 [facility] mg/dL [facility] Comment: Called by: JEET, Read [...] MD HEMATOLOGY ORDERABLES Performing Organization Address City/[facility]/ZIP [facility] Phon e Number [address] APTT (07/07/2017 5:30 PM EST) P athologist Signature PTT 30 25 - [address] [facility] Comment: The recommended therapeutic range for fu ll dose, unfractionated heparin at [facility] is 80 [...] MD HEMATOLOGY ORDERABLES Performing Organization Address City/[facility]/[place] [address] (ABNORMAL) Prothrombin Time (07/07/2017 [...] MD HEMATOLOGY ORDERABLES Performing Organization Address City/[facility]/[place] [address] (ABNORMAL) Hemogram (07/07/2017 5:30 PM EST) P athologist Signature WBC 19.6 (H) 4.0 - 9.5 [facility] x10(3)/[facility] LABORATORY RBC 3.08 (L) 4.58 - [facility] 5.54 [facility] x10(6)/[facility] LABORATORY Hemoglobin 9.2 (L) 13.7 - [facility] 16.5 gm/dL [facility] Hematocrit 28.0 (L) 40.5 - [facility] 48.5 % [facility] Comment: This result has been called to MONICA MORAN by DONALD GROSSMAN on 07 07 2017 at 1759, and has been read back. MCV 90.9 82.9 - 93.[address] [facility] MCH 29.9 27.5 - 32.[address] [facility] MCHC 32.9 32.0 - 35.7 gm/dL [facility] Platelets 155 145 - 357 x10(3)/[facility] LABORATORY RDWSD 46.5 (H) 36.0 - 45.0 [facility] LABORATORY RDWCV 14.1 (H) 11.4 - 13.8 % [facility] MPV 9.5 7.6 - 12.9 [facility] LABORATORY nRBC % Auto 0.0 % [facility] nRBC Abs Auto 0.000 0.000 - 0.000 x10(3)/[facility] LABORATORY Specimen Anatomical Collection Method Collection Time Receive d Time (Source) Location / / Volume Laterality Blood specimen 07/07/2017 5:30 PM 017 5:34 (specimen) EST PM EST Resulting Agency Comment Spec In Lab Yifan Perez MD HEMATOLOGY ORDERABLES Performing Organization Address City/State/[place] [address] Prepare Platelets, Apheresis (07/07/2017 5:00 PM EST) P athologist Signature Dispensed? Yes [facility] Specimen Anatomical Collection Method Collection Time Receive d Time (Source) Location / / Volume Laterality Blood specimen 07/07/2017 5:00 PM 017 4:58 (specimen) EST PM EST Daphne Shahid MD BLOOD BANK ORDERABLES Performing Organization Address City/State/[place] [address] Platelet count (07/07/2017 4:55 PM EST) P athologist Signature Platelets 177 145 - 357 [facility] x10(3)/[facility] LABORATORY Plat Immature 1.5 0.0 - 7.4 [facility] % % [facility] Comment: Limitation of the Immature Platelet Frac tion (IPF)-May be less reliable when the platelet count is less than 54k349/u L due to statistical imprecision. The IPF [...] in a decreased state of production. References: [employer] The Clinical Value of the Immature Platelet Fraction (IPF) in Cell Recovery Document Number 10-1143 12/2010 [employer] The Role of the Imm ature [...] City/State/[place] [address] [facility] LAB[address] Drive (ABNORMAL) Hemoglobin and Hematocrit, blood (07/07/2017 4:55 PM EST) P athologist Signature Hemoglobin 9.1 (L) 13.7 - 16.5 [facility] gm/dL [facility] Comment: This result has been [...] City/State/[place] [address] (ABNORMAL) BLOOD GAS 2 ARTERIAL (07/07/2017 4:38 PM EST) Analysis Performed At Patho logist Time Signature pH Art 7.37 7.35 - [facility] 7.45 [facility] pCO2 Art 44 35 - 45 [facility] mmHg [facility] pO2 Art 322 (H) 85 - 104 [facility] LABORATORY HCO3 Art 24.9 20.0 - [facility] 26.0 [facility] mmol/L [facility] BE Art -0.4 -3.0 - 3.0 [facility] mmol/L [facility] Hgb Blood Gas 10.1 (L) 13.7 - [facility] 16.5 gm/dL [facility] O2HB Art 98.7 (H) 94.0 - [facility] 97.0 % [facility] COHB Art 0.1 % [facility] Comment: Nonsmokers: 0.5-1.5% COHB Smokers: Variable, but usually less than 10% Toxic: 20-30% COHB Lethal: Greater than 60% COHB METHB Art 0.3 <=1.5 % [facility]ORY Na Whole Blood 130 (L) 135 - 145 mmol/L [facility] K Whole Blood 5.7 (H) 3.5 - 5.0 mmol/L [facility] Comment: Please note: Patients with WBC >100,000 may have falsely elevated Potassium levels. Contact the Clinical Chemistry L aboratory if there are any questions. ICa Whole Blood 0.89 (Critical) 1.15 - 1.33 mmol/L 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 Note: ??Total bilirubin higher than 20 m g/dL may lead to falsely low ionized calcium. CL Whole Blood 101 98 - 107 mmol/L [facility] Gluc Whole Bld 295 (H) [...] City/State/[place] [address] (ABNORMAL) BLOOD GAS 2 VENOUS (07/07/2017 4:06 PM EST) Analysis Performed At Patho logist Time Signature pH Cody 7.31 (L) 7.32 - [facility] 7.42 [facility] pCO2 Cody 47 41 - 51 [facility] LABORATORY pO2 Cody 53 (H) 25 - 40 [facility] LABORATORY HCO3 Cody 22.7 mmol/L [facility] BE Cody -3.7 mmol/L [facility] Hgb Blood Gas 10.2 (L) 13.7 - [facility] 16.5 gm/dL [facility] O2HB Cody 81.0 % ST. [...] Blood 5.3 (H) 3.5 - 5.0 mmol/L [facility] Comment: Please note: Patients with WBC >100,000 may have falsely elevated Potassium levels. Contact the Clinical Chemistry L aboratory if there are any questions. ICa Whole Blood 0.90 (Critical) 1.15 - 1.33 mmol/L 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 Note: ??Total bilirubin higher than 20 m g/dL may lead to falsely low ionized calcium. CL Whole Blood 100 98 - 107 mmol/L [facility] Gluc Whole Bld 231 (H) 65 - 199 mg/dL [facility] Comment: Diabetes: >=200 mg/dL plus symp toms Lactate WB 1.1 0.5 - 2.2 mmol/L [facility] BGas Source Venous [facility] Specimen Anatomical Collection Method Collection Time Receive d Time (Source) Location / / Volume Laterality Blood specimen 07/07/2017 4:06 PM 017 4:06 (specimen) EST PM EST Daphne Shahid MD CHEMISTRY ORDERABLES Performing Organization Address City/State/[place] [address] (ABNORMAL) BLOOD GAS 2 ARTERIAL (07/07/2017 4:05 PM EST) Analysis Performed At Patho logist Time Signature pH Art 7.36 7.35 - [facility] 7.45 [facility] pCO2 Art 40 35 - 45 [facility] mmHg [facility] pO2 Art 282 (H) 85 - 104 [facility] LABORATORY HCO3 Art 22.1 20.0 - [facility] 26.0 [facility] mmol/L [facility] BE Art -3.4 (L) -3.0 - 3.0 [facility] mmol/L [facility] Hgb Blood Gas 10.2 (L) 13.7 - [facility] 16.5 gm/dL [facility] O2HB Art 98.4 (H) 94.0 - [facility] 97.0 % [facility] COHB Art 0.3 % [facility] Comment: Nonsmokers: 0.5-1.5% COHB Smokers: Variable, but usually less than 10% Toxic: 20-30% COHB Lethal: Greater than 60% COHB METHB Art 0.3 <=1.5 % [facility] Na Whole Blood 131 (L) 135 - 145 mmol/L [facility] K Whole Blood 5.4 (H) 3.5 - 5.0 mmol/L [facility] Comment: Please note: Patients with WBC >100,000 may have falsely elevated Potassium levels. Contact the Clinical Chemistry L aboratory if there are any questions. ICa Whole Blood 0.86 (Critical) 1.15 - 1.33 mmol/L 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 Note: ??Total bilirubin higher than 20 m g/dL may lead to falsely low ionized calcium. CL Whole Blood 101 98 - 107 mmol/L [facility] Gluc Whole Bld 260 (H) [...] City/State/[place] [address] (ABNORMAL) BLOOD GAS 2 ARTERIAL (07/07/2017 2:29 PM EST) Analysis Performed At Patho logist Time Signature pH Art 7.43 7.35 - [facility] 7.45 [facility] pCO2 Art 36 35 - 45 [facility] LABORATORY pO2 Art 221 (H) 85 - 104 [facility]ORY HCO3 Art 23.2 20.0 - [facility] 26.0 [facility] mmol/L [facility] BE Art -1.2 -3.0 - 3.0 [facility]/L [facility] Hgb Blood Gas 13.9 13.7 - [facility] 16.5 gm/dL [facility] O2HB Art 97.8 (H) 94.0 - [facility] 97.0 % [facility] COHB Art 1.1 % ST. [...] City/State/[place] [address] Prepare Coag Factors (Non-Hemophilia) (07/07/2017 1:25 PM EST) P athologist Signature Dispensed? Yes [facility] Specimen Anatomical Collection Method Collection Time Receive d Time (Source) Location / / Volume Laterality Blood specimen 07/07/2017 1:25 PM 017 1:21 (specimen) EST PM EST Daphne Shahid MD BLOOD BANK ORDERABLES Performing Organization Address City/State/ZIP Code Phon e Number [address] Prepare RBC (07/07/2017 1:10 PM EST) P athologist Signature Dispensed? Yes [facility] Specimen Anatomical Collection Method Collection Time Receive d Time (Source) Location / / Volume Laterality Blood specimen 07/07/2017 1:10 PM 017 1:05 (specimen) EST PM EST Daphne Shahid MD BLOOD BANK ORDERABLES Performing Organization Address City/State/ZIP Code Phon e Number [address] POCT Glucose (07/07/2017 11:56 AM EST) P athologist Signature POC Glucose 188 65 - 199 [facility] Comment: Supplemental ranges: <140 mg/dL before meals <180 mg/dL all other times of the day Specimen Anatomical Collection Method Collection Time Receive d Time (Source) Location / / Volume Laterality Blood specimen 07/07/2017 11:56 7 (specimen) AM EST 11:56 AM EST Daphne Shahid MD POINT OF CARE TEST ORDERABLE S Performing Organization Address City/State/ZIP Code Phon e Number [address] POCT Glucose (07/07/2017 11:05 AM EST) P athologist Signature POC Glucose 168 65 - 199 [facility] mg/dL [facility] Comment: Supplemental ranges: <140 mg/dL before meals <180 mg/dL all other times of the day Specimen Anatomical Collection Method Collection Time Receive d Time (Source) Location / / Volume Laterality Blood specimen 07/07/2017 11:05 7 (specimen) AM EST 11:05 AM EST Daphne Shahid MD POINT OF CARE TEST ORDERABLE S Performing Organization Address City/State/ZIP Code Phon e Number [address] POCT Glucose (07/07/2017 10:02 AM EST) athologist Signature POC Glucose 191 65 - 199 [facility] mg/dL [facility] Comment: Supplemental ranges: <140 mg/dL before meals <180 mg/dL all other times of the day Specimen Anatomical Collection Method Collection Time Receive d Time (Source) Location / / Volume Laterality Blood specimen 07/07/2017 10:02 7 (specimen) AM EST 10:02 AM EST Daphne Shahid MD POINT OF CARE TEST ORDERABLE S Performing Organization Address City/State/ZIP Code Phon e Number [address] POCT Glucose (07/07/2017 7:53 AM EST) athologist Signature POC Glucose 178 65 - 199 [facility] mg/dL [facility] Comment: Supplemental ranges: <140 mg/dL before meals <180 mg/dL all other times of the day Specimen Anatomical Collection Method Collection Time Receive d Time (Source) Location / / Volume Laterality Blood specimen 07/07/2017 7:53 AM 017 7:53 (specimen) EST AM EST Daphne Shahid MD POINT OF CARE TEST ORDERABLE S Performing Organization Address City/State/[place] [address] POCT Glucose (07/07/2017 7:03 AM EST) athologist Signature POC Glucose 188 65 - 199 [facility] RYAN mg/dL [facility] Comment: Supplemental ranges: <140 mg/dL before meals <180 mg/dL all other times of the day Specimen Anatomical Collection Method Collection Time Receive d Time (Source) Location / / Volume Laterality Blood specimen 07/07/2017 7:03 AM 017 7:03 (specimen) EST AM EST Daphne Shahid MD POINT OF CARE TEST ORDERABLE S Performing Organization Address City/State/[place] [address] (ABNORMAL) POCT Glucose (07/07/2017 6:17 AM EST) athologist Signature POC Glucose 207 (H) 65 - 199 [facility] mg/dL [facility] Comment: Supplemental ranges: <140 mg/dL before meals <180 mg/dL all other times of the day Specimen Anatomical Collection Method Collection Time Receive d Time (Source) Location / / Volume Laterality Blood specimen 07/07/2017 6:17 AM 017 6:17 (specimen) EST AM EST Daphne Shahid MD POINT OF CARE TEST ORDERABLE S Performing Organization Address City/State/ZIP Code Phon e Number [place] [id number] Differential, Automated (07/07/2017 5:15 AM EST) athologist [facility] Neutrophils % 69.7 % [facility] Neutr Abs (ANC) 5.32 1.70 - [facility] 6.10 [facility] x10(3)/[facility] LABORATORY Lymphocytes % 16.3 % [facility] Lymphocytes Abs 1.2 0.9 - 3.2 [facility] x10(3)/[facility] LABORATORY Monocytes % 10.5 % [facility] Monocyte Abs 0.8 0.3 - 0.9 [facility] x10(3)/[facility] LABORATORY Eosinophils % 2.5 % [facility] Eosinophils Abs 0.2 0.0 - 0.4 [facility] x10(3)/[facility] LABORATORY Basophils % 0.7 % [facility] Basophils Abs 0.0 0.0 - 0.1 [facility] x10(3)/[facility] LABORATORY Immature Gran % 0.30 % [...] Melisa Gran Abs 0.02 0.00 - 0.04 x10(3)/[facility] Y [facility] Specimen Anatomical Collection Method Collection Time Receive d Time (Source) Location / / Volume Laterality Blood specimen 07/07/2017 5:15 AM 017 5:34 (specimen) EST AM EST Resulting Agency Comment Spec In Lab Daphne Shahid MD HEMATOLOGY ORDERABLES Performing Organization Address City/State/[place] [address] (ABNORMAL) Hemogram (07/07/2017 5:15 AM EST) Analysis Performed At Patho logist Time Signature WBC 7.6 4.0 - 9.5 [facility] x10(3)/[facility] LABORATORY RBC 4.82 4.58 - [facility]54 [facility] x10(6)/[facility]ATORY Hemoglobin 14.4 13.7 - [facility] gm/dL [facility] Hematocrit 42.1 40.5 - [facility] 48.5 % [facility] MCV 87.3 82.9 - [facility] 93.1 [facility] LABORATORY MCH 29.9 27.5 - [facility] RYAN 32.1 pg [facility] MCHC 34.2 32.0 - [facility] 35.7 gm/dL [facility] Platelets 188 145 - 357 [facility] x10(3)/[facility] LABORATORY RDWSD 45.1 (H) 36.0 - [facility] 45.0 [facility] LABORATORY RDWCV 14.3 (H) 11.4 - [facility] RYAN 13.8 % [facility] MPV 9.4 7.6 - 12.9 [facility] LABORATORY nRBC % Auto 0.0 % [facility] nRBC Abs Auto 0.000 0.000 - [facility] RYAN 0.000 [facility] x10(3)/[facility] LABORATORY Specimen Anatomical Collection Method Collection Time Receive d Time (Source) Location / / Volume Laterality Blood specimen 07/07/2017 5:15 AM 017 5:34 (specimen) EST AM EST Resulting Agency Comment Spec In Lab Daphne Shahid MD HEMATOLOGY ORDERABLES Performing Organization Address City/State/[place] [address] (ABNORMAL) APTT (07/07/2017 5:15 AM EST) athologist Signature PTT 69 (H) 25 - [address] [facility] Comment: The recommended therapeutic range for fu ll dose, unfractionated heparin at [facility] is 80 [...] MD HEMATOLOGY ORDERABLES Performing Organization Address City/[facility]/[place] [address] Magnesium (07/07/2017 5:15 AM EST) athologist Signature Magnesium 0.94 0.69 - 1.07 [facility] mmol/L [facility] Specimen Anatomical Collection Method Collection Time Receive d Time (Source) Location / / Volume Laterality Blood specimen 07/07/2017 5:15 AM 017 5:34 (specimen) EST AM EST Resulting Agency Comment Spec In Lab Daphne Shahid MD CHEMISTRY ORDERABLES Performing Organization Address City/[facility]/[place] [address] (ABNORMAL) Basic Metabolic Panel (non-fasting) (07/07/2017 5:15 AM EST) P athologist Signature Glucose Lvl 203 (H) 65 - 199 [facility] mg/dL [facility] Comment: Diabetes: >=200 mg/dL plus symp toms BUN 15 10 - 20 mg/dL [facility] Creatinine 1.09 0.80 - 1.50 [...] in patients with acute kidney failure. [email or web address] Specimen Anatomical Collection Method Collection Time Receive d Time (Source) Location / / Volume Laterality Blood specimen 07/07/2017 5:15 AM 017 5:34 (specimen) EST AM EST Resulting Agency Comment Spec In Lab Daphne Shahid MD CHEMISTRY ORDERABLES Performing Organization Address City/State/[place] [address] (ABNORMAL) Cardiac Enzymes (LEB/CGP) (07/07/2017 5:15 AM EST) P athologist Signature Troponin-T 2.07 (H) 0.00 - [facility] 0.00 ng/mL [facility] Comment: The 99th percentile for [...] additional sample may be indicated. Reference: Third Tovey Definition of Myocardial Infarction. Journal of the [place] [employer] 2012;60:1581-98 CK, Total 88 0 - 200 unit/L [facility] Specimen Anatomical Collection Method Collection Time Receive d Time (Source) Location / / Volume Laterality Blood specimen 07/07/2017 5:15 AM 017 5:34 (specimen) EST AM EST Resulting Agency Comment Spec In Lab Daphne Shahid MD CHEMISTRY ORDERABLES Performing Organization Address City/[facility]/ZIP [facility] Phon e Number [address] POCT Glucose (07/07/2017 5:01 AM EST) athologist Signature POC Glucose 182 65 - 199 [facility] mg/dL [facility] Comment: Supplemental ranges: <140 mg/dL before meals <180 mg/dL all other times of the day Specimen Anatomical Collection Method Collection Time Receive d Time (Source) Location / / Volume Laterality Blood specimen 07/07/2017 5:01 AM 017 5:01 (specimen) EST AM EST Daphne Shahid MD POINT OF CARE TEST ORDERABLE S Performing Organization Address City/[facility] Phon e Number [address] POCT Glucose (07/07/2017 4:08 AM EST) athologist Signature POC Glucose 199 65 - 199 [facility] mg/dL [facility] Comment: Supplemental ranges: <140 mg/dL before meals <180 mg/dL all other times of the day Specimen Anatomical Collection Method Collection Time Receive d Time (Source) Location / / Volume Laterality Blood specimen 07/07/2017 4:08 AM 017 4:08 (specimen) EST AM EST Daphne Shahid MD POINT OF CARE TEST ORDERABLE S Performing Organization Address City/State/ZIP Code Phon e Number [address] POCT Glucose (07/07/2017 3:03 AM EST) athologist Signature POC Glucose 188 65 - 199 [facility] mg/dL [facility] Comment: Supplemental ranges: <140 mg/dL before meals <180 mg/dL all other times of the day Specimen Anatomical Collection Method Collection Time Receive d Time (Source) Location / / Volume Laterality Blood specimen 07/07/2017 3:03 AM 017 3:03 (specimen) EST AM EST Daphne Shahid MD POINT OF CARE TEST ORDERABLE S Performing Organization Address City/State/[place] [address] (ABNORMAL) POCT Glucose (07/07/2017 2:08 AM EST) athologist Signature POC Glucose 200 (H) 65 - 199 [facility] mg/dL [facility] Comment: Supplemental ranges: <140 mg/dL before meals <180 mg/dL all other times of the day Specimen Anatomical Collection Method Collection Time Receive d Time (Source) Location / / Volume Laterality Blood specimen 07/07/2017 2:08 AM 017 2:08 (specimen) EST AM EST Daphne Shahid MD POINT OF CARE TEST ORDERABLE S Performing Organization Address City/State/ZIP Code Phon e Number [address] (ABNORMAL) POCT Glucose (07/07/2017 1:31 AM EST) P athologist Signature POC Glucose 209 (H) 65 - 199 [facility] mg/dL [facility] Comment: Supplemental ranges: <140 mg/dL before meals <180 mg/dL all other times of the day Specimen Anatomical Collection Method Collection Time Receive d Time (Source) Location / / Volume Laterality Blood specimen 07/07/2017 1:31 AM 017 1:31 (specimen) EST AM EST Daphne Shahid MD POINT OF CARE TEST ORDERABLE S Performing Organization Address City/State/[place] [address] XR Chest PA or [...] POC Glucose 161 65 - 199 [facility] mg/dL [facility] Comment: Supplemental ranges: <140 mg/dL before meals <180 mg/dL all other times of the day Specimen Anatomical Collection Method Collection Time Receive d Time (Source) Location / / Volume Laterality Blood specimen 07/07/2017 12:07 7 (specimen) AM EST 12:07 AM EST Daphne Shahid MD POINT OF CARE TEST ORDERABLE S Performing Organization Address City/State/[place] [address] (ABNORMAL) APTT (07/07/2017 12:00 AM EST) athologist Signature PTT 103 (H) 25 - [address] [facility] Comment: The recommended therapeutic range for fu ll dose, unfractionated heparin at [facility] is 80 [...] MD HEMATOLOGY ORDERABLES Performing Organization Address City/[facility]/[place] [address] POCT Glucose (07/06/2017 9:55 PM EST) athologist Signature POC Glucose 109 65 - 199 [facility] Comment: Supplemental ranges: <140 mg/dL before meals <180 mg/dL all other times of the day Specimen Anatomical Collection Method Collection Time Receive d Time (Source) Location / / Volume Laterality Blood specimen 07/06/2017 9:55 PM 017 9:55 (specimen) EST PM EST Daphne Shahid MD POINT OF CARE TEST ORDERABLE S Performing Organization Address City/[facility]/[place] [address] POCT Glucose (07/06/2017 9:04 PM EST) athologist Signature POC Glucose 120 65 - 199 [facility] mg/dL [facility] Comment: Supplemental ranges: <140 mg/dL before meals <180 mg/dL all other times of the day Specimen Anatomical Collection Method Collection Time Receive d Time (Source) Location / / Volume Laterality Blood specimen 07/06/2017 9:04 PM 017 9:04 (specimen) EST PM EST Daphne Shahid MD POINT OF CARE TEST ORDERABLE S Performing Organization Address City/[facility]/[place] [address] POCT Glucose (07/06/2017 7:45 PM EST) athologist Signature POC Glucose 158 65 - 199 [facility] mg/dL [facility] Comment: Supplemental ranges: <140 mg/dL before meals <180 mg/dL all other times of the day Specimen Anatomical Collection Method Collection Time Receive d Time (Source) Location / / Volume Laterality Blood specimen 07/06/2017 7:45 PM 017 7:45 (specimen) EST PM EST Daphne Shahid MD POINT OF CARE TEST ORDERABLE S Performing Organization Address City/[facility]/[place] [address] Potassium (07/06/2017 7:40 PM EST) athologist Signature Potassium 3.9 3.5 - 5.0 [facility] mmol/L [facility] Comment: Please note: ??Patients with [...] MD CHEMISTRY ORDERABLES Performing Organization Address City/[facility]/[place] [address] (ABNORMAL) Cardiac Enzymes (LEB/CGP) (07/06/2017 7:40 PM EST) athologist Signature Troponin-T 2.27 (H) 0.00 - [facility] ng/mL [facility] Comment: The 99th percentile for [...] additional sample may be indicated. Reference: Third Tovey Definition of Myocardial Infarction. Journal of the [place] [employer] 2012;60:1581-98 CK, Total 93 0 - 200 unit/L [facility] Specimen Anatomical Collection Method Collection Time Receive d Time (Source) Location / / Volume Laterality Blood specimen 07/06/2017 7:40 PM 017 7:52 (specimen) EST PM EST Resulting Agency Comment Spec In Lab Daphne Shahid MD CHEMISTRY ORDERABLES Performing Organization Address City/State/[place] [address] (ABNORMAL) POCT Glucose (07/06/2017 7:13 PM EST) athologist Signature POC Glucose 200 (H) 65 - 199 [facility] mg/dL [facility] Comment: Supplemental ranges: <140 mg/dL before meals <180 mg/dL all other times of the day Specimen Anatomical Collection Method Collection Time Receive d Time (Source) Location / / Volume Laterality Blood specimen 07/06/2017 7:13 PM 017 7:13 (specimen) EST PM EST Daphne Shahid MD POINT OF CARE TEST ORDERABLE S Performing Organization Address City/[facility]/[place] [address] (ABNORMAL) APTT (07/06/2017 6:15 PM EST) athologist Signature PTT 94 (H) 25 - [address] [facility] Comment: The recommended therapeutic range for fu ll dose, unfractionated heparin at [facility] is 80 [...] MD HEMATOLOGY ORDERABLES Performing Organization Address City/[facility]/[place] [address] (ABNORMAL) POCT Glucose (07/06/2017 6:03 PM EST) athologist Signature POC Glucose 236 (H) 65 - 199 [facility] mg/dL [facility] Comment: Supplemental ranges: <140 mg/dL before meals <180 mg/dL all other times of the day Specimen Anatomical Collection Method Collection Time Receive d Time (Source) Location / / Volume Laterality Blood specimen 07/06/2017 6:03 PM 017 6:03 (specimen) EST PM EST Daphne Shahid MD POINT OF CARE TEST ORDERABLE S Performing Organization Address City/[facility]/[place] [address] (ABNORMAL) POCT Glucose (07/06/2017 5:01 PM EST) athologist Signature POC Glucose 235 (H) 65 - 199 [facility] RYAN mg/dL [facility] Comment: Supplemental ranges: <140 mg/dL before meals <180 mg/dL all other times of the day Specimen Anatomical Collection Method Collection Time Receive d Time (Source) Location / / Volume Laterality Blood specimen 07/06/2017 5:01 PM 017 5:01 (specimen) EST PM EST Daphne Shahid MD POINT OF CARE TEST ORDERABLE S Performing Organization Address City/State/[place] [address] (ABNORMAL) POCT Glucose (07/06/2017 4:06 PM EST) athologist Signature POC Glucose 202 (H) 65 - 199 [facility] mg/dL [facility] Comment: Supplemental ranges: <140 mg/dL before meals <180 mg/dL all other times of the day Specimen Anatomical Collection Method Collection Time Receive d Time (Source) Location / / Volume Laterality Blood specimen 07/06/2017 4:06 PM 017 4:06 (specimen) EST PM EST Daphne Shahid MD POINT OF CARE TEST ORDERABLE S Performing Organization Address City/[facility]/[place] [address] POCT Glucose (07/06/2017 2:59 PM EST) athologist Signature POC Glucose 178 65 - 199 [facility] mg/dL [facility] Comment: Supplemental ranges: <140 mg/dL before meals <180 mg/dL all other times of the day Specimen Anatomical Collection Method Collection Time Receive d Time (Source) Location / / Volume Laterality Blood specimen 07/06/2017 2:59 PM 017 2:59 (specimen) EST PM EST Daphne Shahid MD POINT OF CARE TEST ORDERABLE S Performing Organization Address City/State/[place] [address] (ABNORMAL) Cardiac Enzymes (LEB/CGP) (07/06/2017 2:10 PM EST) athologist Signature Troponin-T 2.34 (H) 0.00 - [facility] 0.00 ng/mL [facility] Comment: The 99th percentile for [...] additional sample may be indicated. Reference: Third Tovey Definition of Myocardial Infarction. Journal of the [place] [employer] 2012;60:1581-98 CK, Total 101 0 - 200 unit/L [facility] Specimen Anatomical Collection Method Collection Time Receive d Time (Source) Location / / Volume Laterality Blood specimen 07/06/2017 2:10 PM 017 2:26 (specimen) EST PM EST Resulting Agency Comment Spec In Lab Daphne Shahid MD CHEMISTRY ORDERABLES Performing Organization Address City/State/[place] [address] POCT Glucose (07/06/2017 2:08 PM EST) P athologist Signature POC Glucose 192 65 - 199 [facility] mg/dL [facility] Comment: Supplemental ranges: <140 mg/dL before meals <180 mg/dL all other times of the day Specimen Anatomical Collection Method Collection Time Receive d Time (Source) Location / / Volume Laterality Blood specimen 07/06/2017 2:08 PM 017 2:08 (specimen) EST PM EST Daphne Shahid MD POINT OF CARE TEST ORDERABLE S Performing Organization Address City/State/ZIP Code Phon e Number [address] POCT Glucose (07/06/2017 1:04 PM EST) P athologist Signature POC Glucose 162 65 - 199 [facility] mg/dL [facility] Comment: Supplemental ranges: <140 mg/dL before meals <180 mg/dL all other times of the day Specimen Anatomical Collection Method Collection Time Receive d Time (Source) Location / / Volume Laterality Blood specimen 07/06/2017 1:04 PM 017 1:04 (specimen) EST PM EST Daphne Shahid MD POINT OF CARE TEST ORDERABLE S Performing Organization Address City/[facility]/ZIP Code Phon e Number [address] POCT Glucose (07/06/2017 12:05 PM EST) P athologist Signature POC Glucose 196 65 - 199 [facility] mg/dL [facility] Comment: Supplemental ranges: <140 mg/dL before meals <180 mg/dL all other times of the day Specimen Anatomical Collection Method Collection Time Receive d Time (Source) Location / / Volume Laterality Blood specimen 07/06/2017 12:05 7 (specimen) PM EST 12:05 PM EST Daphne Shahid MD POINT OF CARE TEST ORDERABLE S Performing Organization Address City/State/[place] [address] EKG 12 Lead (07/06/2017 12:00 PM EST) Component Value Ref Range Test Analysis Performed Pathologis t Method Time At Signature Ventricular rate 91 BPM MUSE SYSTEM Atrial Rate 91 BPM MUSE SYSTEM P-R Interval 140 ms MUSE SYSTEM QRS Duration 94 ms MUSE SYSTEM Q-T Interval 394 ms MUSE SYSTEM QTC Calculated 484 ms MUSE SYSTEM (Bezet) Calculated P [place] 36 degrees MUSE SYSTEM Calculated R [place] -19 degrees MUSE SYSTEM Calculated T [place] 104 degrees MUSE SYSTEM INTERPRETATION Normal sinus rhythm MUSE SYSTEM 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) ST & T wave abnormality, consider lateral ischemia Abnormal ECG When compared with ECG of 05-JUL-2017 20:39, No significant change was found Confirmed by MD Luci, Taurus Braun ([id number]) on 07/06/2017 5:07:33 PM Specimen Anatomical Collection Method Collection Time Receive d Time (Source) Location / / Volume Laterality 07/06/2017 12:00 07/06/2017 5:07 PM EST PM EST Daphne Shahid MD ECG ORDERABLES Performing Organization Address City/State/ZIP Code Phon e Number MUSE SYSTEM ABORH Recheck Status (07/06/2017 12:00 PM EST) Patholo gist Method Time Signature ABORH Type Completed [facility] LABORATORY Specimen Anatomical Collection Method Collection Time Receive d Time (Source) Location / / Volume Laterality Blood specimen 07/06/2017 12:00 7 (specimen) PM EST 12:24 PM EST Resulting Agency Comment Spec In Lab Daphne Shahid MD BLOOD BANK ORDERABLES Performing Organization Address City/[facility]/[place] [address] Antibody screen (07/06/2017 12:00 PM EST) [facility] Method Time Signature Ab Screen Negative [facility] LABORATORY Expires at 07/09/2017 [facility] 235 on: [facility] Specimen Anatomical Collection Method Collection Time Receive d Time (Source) Location / / Volume Laterality Blood specimen 07/06/2017 12:00 7 (specimen) PM EST 12:24 PM EST Resulting Agency Comment Spec In Lab Daphne Shahid MD BLOOD BANK ORDERABLES Performing Organization Address City/[facility]/[place] [address] ABO/Rh Typing (07/06/2017 12:00 [...] Organization Address City/State/[place] [address] Prothrombin Time (07/06/2017 11:24 AM EST) athologist Signature PT 13.3 11.8 - 14.0 [facility] LABORATORY INR 1.0 0.9 - 1.1 ST. [...] MD HEMATOLOGY ORDERABLES Performing Organization Address City/[facility]/[place] [address] (ABNORMAL) APTT (07/06/2017 11:24 AM EST) athologist Signature PTT 52 (H) 25 - [address] [facility] Comment: The recommended therapeutic range for fu ll dose, unfractionated heparin at [facility] is 80 [...] Address City/State/ZIP Code Phon e Number [address] POCT Glucose (07/06/2017 11:02 AM EST) athologist Signature POC Glucose 187 65 - 199 [facility] mg/dL [facility] Comment: Supplemental ranges: <140 mg/dL before meals <180 mg/dL all other times of the day Specimen Anatomical Collection Method Collection Time Receive d Time (Source) Location / / Volume Laterality Blood specimen 07/06/2017 11:02 7 (specimen) AM EST 11:02 AM EST Daphne Shahid MD POINT OF CARE TEST ORDERABLE S Performing Organization Address City/State/ZIP Code Phon e Number [address] POCT Glucose (07/06/2017 10:18 AM EST) athologist Signature POC Glucose 193 65 - 199 [facility] mg/dL [facility] Comment: Supplemental ranges: <140 mg/dL before meals <180 mg/dL all other times of the day Specimen Anatomical Collection Method Collection Time Receive d Time (Source) Location / / Volume Laterality Blood specimen 07/06/2017 10:18 7 (specimen) AM EST 10:18 AM EST Daphne Shahid MD POINT OF CARE TEST ORDERABLE S Performing Organization Address City/State/ZIP Code Phon e Number [address] POCT Glucose (07/06/2017 9:25 AM EST) athologist Signature POC Glucose 182 65 - 199 [place] mg/dL [facility] Comment: Supplemental ranges: <140 mg/dL before meals <180 mg/dL all other times of the day Specimen Anatomical Collection Method Collection Time Receive d Time (Source) Location / / Volume Laterality Blood specimen 07/06/2017 9:25 AM 017 9:25 (specimen) EST AM EST Daphne Shahid MD POINT OF CARE TEST ORDERABLE S Performing Organization Address City/State/[place] [address] (ABNORMAL) Cardiac Enzymes (LEB/CGP) (07/06/2017 8:10 AM EST) athologist Signature Troponin-T 2.26 (H) 0.00 - [facility] 0.00 ng/mL [facility] Comment: The 99th percentile for [...] additional sample may be indicated. Reference: Third Tovey Definition of Myocardial Infarction. Journal of the [place] [employer] 2012;60:1581-98 CK, Total 124 0 - 200 unit/L [facility] Specimen Anatomical Collection Method Collection Time Receive d Time (Source) Location / / Volume Laterality Blood specimen 07/06/2017 8:10 AM 017 8:23 (specimen) EST AM EST Resulting Agency Comment Spec In Lab Daphne Shahid MD CHEMISTRY ORDERABLES Performing Organization Address City/State/[place] [address] Magnesium (07/06/2017 8:10 AM EST) athologist Signature Magnesium 0.84 0.69 - 1.07 [facility] mmol/L [facility] Specimen Anatomical Collection Method Collection Time Receive d Time (Source) Location / / Volume Laterality Blood specimen 07/06/2017 8:10 AM 017 8:21 (specimen) EST AM EST Resulting Agency Comment Spec In Lab Daphne Shahid MD CHEMISTRY ORDERABLES Performing Organization Address City/[facility]/[place]IP [place] [address] (ABNORMAL) Basic Metabolic Panel (non-fasting) (07/06/2017 8:10 AM EST) P athologist Signature Glucose Lvl 199 65 - 199 [facility] mg/dL [facility] Comment: Diabetes: >=200 mg/dL plus symp toms BUN 16 10 - 20 mg/dL [facility] LAB[facility]ORY Creatinine 1.04 0.80 - 1.50 [...] or in patients with acute kidney failure. [email or web address] Specimen Anatomical Collection Method Collection Time Receive d Time (Source) Location / / Volume Laterality Blood specimen 07/06/2017 8:10 AM 017 8:21 (specimen) EST AM EST Resulting Agency Comment Spec In Lab Daphne Shahid MD CHEMISTRY ORDERABLES Performing Organization Address City/State/[place] [address] POCT Glucose (07/06/2017 7:34 AM EST) P athologist Signature POC Glucose 198 65 - 199 [facility] Comment: Supplemental ranges: <140 mg/dL before meals <180 mg/dL all other times of the day Specimen Anatomical Collection Method Collection Time Receive d Time (Source) Location / / Volume Laterality Blood specimen 07/06/2017 7:34 AM 017 7:34 (specimen) EST AM EST Daphne Shahid MD POINT OF CARE TEST ORDERABLE S Performing Organization Address City/State/ZIP Code Phon e Number [address] POCT Glucose (07/06/2017 7:03 AM EST) athologist Signature POC Glucose 181 65 - 199 [facility] Comment: Supplemental ranges: <140 mg/dL before meals <180 mg/dL all other times of the day Specimen Anatomical Collection Method Collection Time Receive d Time (Source) Location / / Volume Laterality Blood specimen 07/06/2017 7:03 AM 017 7:03 (specimen) EST AM EST Daphne Shahid MD POINT OF CARE TEST ORDERABLE S Performing Organization Address City/State/[place] [address] XR Chest PA or [...] Signature POC Glucose 172 65 - 199 [facility] mg/dL [facility] Comment: Supplemental ranges: <140 mg/dL before meals <180 mg/dL all other times of the day Specimen Anatomical Collection Method Collection Time Receive d Time (Source) Location / / Volume Laterality Blood specimen 07/06/2017 6:21 AM 017 6:21 (specimen) EST AM EST Daphne Shahid MD POINT OF CARE TEST ORDERABLE S Performing Organization Address City/State/[place] [address] POCT Glucose (07/06/2017 5:08 AM EST) athologist Signature POC Glucose 154 65 - 199 [facility] mg/dL [facility] Comment: Supplemental ranges: <140 mg/dL before meals <180 mg/dL all other times of the day Specimen Anatomical Collection Method Collection Time Receive d Time (Source) Location / / Volume Laterality Blood specimen 07/06/2017 5:08 AM 017 5:08 (specimen) EST AM EST Daphne Shahid MD POINT OF CARE TEST ORDERABLE S Performing Organization Address City/[facility]/ZIP Code Phon e Number [address] POCT Glucose (07/06/2017 4:05 AM EST) athologist Signature POC Glucose 142 65 - 199 [facility]dL [facility] Comment: Supplemental ranges: <140 mg/dL before meals <180 mg/dL all other times of the day Specimen Anatomical Collection Method Collection Time Receive d Time (Source) Location / / Volume Laterality Blood specimen 07/06/2017 4:05 AM 017 4:05 (specimen) EST AM EST Daphne Shahid MD POINT OF CARE TEST ORDERABLE S Performing Organization Address City/[facility]/ZIP Code Phon e Number [address] POCT Glucose (07/06/2017 3:00 AM EST) athologist Signature POC Glucose 116 65 - 199 [facility] mg/dL [facility] Comment: Supplemental ranges: <140 mg/dL before meals <180 mg/dL all other times of the day Specimen Anatomical Collection Method Collection Time Receive d Time (Source) Location / / Volume Laterality Blood specimen 07/06/2017 3:00 AM 017 3:00 (specimen) EST AM EST Daphne Shahid MD POINT OF CARE TEST ORDERABLE S Performing Organization Address City/State/ZIP Code Phon e Number [address] Potassium (07/06/2017 2:20 AM EST) athologist Signature Potassium 3.9 3.5 - 5.0 [facility] mmol/L [facility] Comment: Please note: ??Patients with [...] City/State/[place] [address] Differential, Automated (07/06/2017 2:20 AM EST) athologist Signature Neutrophils % 72.9 % [facility]ORATORY Neutr Abs (ANC) 5.53 1.70 - [facility] 6.10 [facility] x10(3)[facility] LABORATORY Lymphocytes % 16.4 % [facility] Lymphocytes Abs 1.2 0.9 - 3.2 [facility] x10(3)/[facility] LABORATORY Monocytes % 9.4 % [facility] Monocyte Abs 0.7 0.3 - 0.9 [facility] x10(3)[facility] LABORATORY Eosinophils % 0.5 % [facility] Eosinophils Abs 0.0 0.0 - 0.4 [facility] x10(3)[facility] LABORATORY Basophils % 0.4 % [facility] Basophils Abs 0.0 0.0 - 0.1 [facility] x10(3)/[facility] LABORATORY Immature Gran % 0.40 % [facility] Comment: Immature granulocytes(IG's)percentage an d absolute count will include metamyelocytes, myelocytes, and promyelo cytes. Blood smears from CBCs yielding IG's will be scanned manually for concor dance. If this scan disagrees with the automated IG or if promyelocytes are not ed, a manual differential will be performed. Melisa Gran Abs 0.03 0.00 - 0.04 x10(3)/[facility] MAR Y [facility] LABORATORY Specimen Anatomical Collection Method Collection Time Receive d Time (Source) Location / / Volume Laterality Blood specimen 07/06/2017 2:20 AM 017 2:33 (specimen) EST AM EST Resulting Agency Comment Spec In Lab Daphne Shahid MD HEMATOLOGY ORDERABLES Performing Organization Address City/State/[place] [address] (ABNORMAL) Hemogram (07/06/2017 2:20 AM EST) Analysis Performed At Patho logist Time Signature WBC 7.6 4.0 - 9.5 [facility] x[facility](3)/[facility] LABORATORY RBC 4.52 (L) 4.58 - [facility] RYAN 5.54 [facility] x10(6)/[facility] LABORATORY Hemoglobin 13.4 (L) 13.7 - [facility] 16.5 gm/dL [facility] Hematocrit 39.7 (L) 40.5 - [facility] 48.5 % [facility] MCV 87.8 82.9 - [facility] RYAN 93.1 [facility] LABORATORY MCH 29.6 27.5 - [place] RYAN 32.1 pg [facility] MCHC 33.8 32.0 - [place] R[place]AN 35.7 gm/dL [facility] Platelets 189 145 - 357 [facility] x10(3)/[facility] LABORATORY RDWSD 45.6 (H) 36.0 - [facility] RYAN 45.0 [facility] LABORATORY RDWCV 14.3 (H) 11.4 - [facility] RYAN 13.8 % [facility] MPV 9.1 7.6 - 12.9 [facility] nRBC % Auto 0.0 % [facility] LABORATORY nRBC Abs Auto 0.000 0.000 - [place] [employer] 0.000 [facility] x10(3)/[facility] LABORATORY Specimen Anatomical Collection Method Collection Time Receive d Time (Source) Location / / Volume Laterality Blood specimen 07/06/2017 2:20 AM 017 2:33 (specimen) EST AM EST Resulting Agency Comment Spec In Lab Daphne Shahid MD HEMATOLOGY ORDERABLES Performing Organization Address City/State/[place] [address] (ABNORMAL) APTT (07/06/2017 2:20 AM EST) athologist Signature PTT 52 (H) 25 - [address] [facility] Comment: The recommended therapeutic range for fu ll dose, unfractionated heparin at [facility] is 80 [...] Organization Address City/State/[place] [address] POCT Glucose (07/06/2017 2:20 AM EST) athologist [facility] POC Glucose 115 65 - 199 [facility] mg/dL [facility] Comment: Supplemental ranges: <140 mg/dL before meals <180 mg/dL all other times of the day Specimen Anatomical Collection Method Collection Time Receive d Time (Source) Location / / Volume Laterality Blood specimen 07/06/2017 2:20 AM 017 2:20 (specimen) EST AM EST Daphne Shahid MD POINT OF CARE TEST ORDERABLE S Performing Organization Address City/State/[place] [address] (ABNORMAL) Cardiac Enzymes (LEB/CGP) (07/06/2017 2:20 AM EST) athologist Signature Troponin-T 2.13 (H) 0.00 - [facility] 0.00 ng/mL [facility] Comment: The 99th percentile for [...] additional sample may be indicated. Reference: Third Tovey Definition of Myocardial Infarction. Journal of the [place] College [employer] 2012;60:1581-98 CK, Total 129 0 - 200 unit/L [facility]ORY Specimen Anatomical Collection Method Collection Time Receive d Time (Source) Location / / Volume Laterality Blood specimen 07/06/2017 2:20 AM 017 2:33 (specimen) EST AM EST Resulting Agency Comment Spec In Lab Daphne Shahid MD CHEMISTRY ORDERABLES Performing Organization Address City/State/[place] [address] (ABNORMAL) Hemoglobin A1c (07/06/2017 [...] S67-74 Est Avg Gluc See note mg/dL HOLDEN [...] with hemoglobinopathies. Additional resources are available on [facility] ADA website. Macario HAMMOND, Ruthann J, Deysi R, et al. ??Tr anslating the A1C assay into estimated average glucose values. ??Diabetes Care 2008:31(8):9578-0539. Specimen Anatomical Collection Method Collection Time Receive d Time (Source) Location / / Volume Laterality Blood specimen 07/06/2017 2:20 AM 017 2:34 (specimen) EST AM EST Resulting Agency Comment Spec In Lab Daphne Shahid MD CHEMISTRY ORDERABLES Performing Organization Address City/State/[place] [address] (ABNORMAL) Lipid Panel (07/06/2017 2:20 AM EST) [facility] Method Time Signature Chol, Total 150 <=239 [place] mg/dL [facility] LABORATORY Triglycerides 129 <=199 [place] mg/dL [facility] LABORATORY HDL 32 (L) >=40 [place] mg/dL [facility] LABORATORY LDL Cholesterol 92 <=190 [place] mg/dL [facility] LABORATORY Chol/HDL Ratio 4.[address] [facility] LABOR[facility]ORY Lipid See Note [place] Interpretation [facility] Comment: Lipid management should be guided by a p atient? s ASCVD risk, goals and preferences. ACC/AHA Guidelines recommend high intens ity statin if clinical ASCVD or LDL greater than or equal to 190 mg/dL. http://byUs.comurSimply [address].com/OVG-CTV-Ugguqojwy Adults aged 40-75 with LDL 70-189 mg/dL should have their 10 year ASCVD risk estimated with the ACC/AHA ASCVD risk es timator http://tools.acc.org/TUPOR-Pwsf-Frrvwivv r/ Statin should be discussed if risk [...] MD CHEMISTRY ORDERABLES Performing Organization Address City/[facility]/ZIP [place] [address] POCT Glucose (07/06/2017 1:09 AM EST) athologist Signature POC Glucose 121 65 - 199 [facility] mg/dL [facility] Comment: Supplemental ranges: <140 mg/dL before meals <180 mg/dL all other times of the day Specimen Anatomical Collection Method Collection Time Receive d Time (Source) Location / / Volume Laterality Blood specimen 07/06/2017 1:09 AM 017 1:09 (specimen) EST AM EST Daphne Shahid MD POINT OF CARE TEST ORDERABLE S Performing Organization Address City/State/ZIP Code [place] [address] POCT Glucose (07/06/2017 12:06 AM EST) athologist Signature POC Glucose 147 65 - 199 [facility] mg/dL [facility] Comment: Supplemental ranges: <140 mg/dL before meals <180 mg/dL all other times of the day Specimen Anatomical Collection Method Collection Time Receive d Time (Source) Location / / Volume Laterality Blood specimen 07/06/2017 12:06 7 (specimen) AM EST 12:06 AM EST Daphne Shahid MD POINT OF CARE TEST ORDERABLE S Performing Organization Address City/State/[place] [address] (ABNORMAL) POCT Glucose (07/05/2017 10:56 PM EST) athologist Signature POC Glucose 200 (H) 65 - 199 [facility] mg/dL [facility] Comment: Supplemental ranges: <140 mg/dL before meals <180 mg/dL all other times of the day Specimen Anatomical Collection Method Collection Time Receive d Time (Source) Location / / Volume Laterality Blood specimen 07/05/2017 10:56 7 (specimen) PM EST 10:56 PM EST Daphne Shahid MD POINT OF CARE TEST ORDERABLE S Performing Organization Address City/State/[place] [address] (ABNORMAL) POCT Glucose (07/05/2017 10:05 PM EST) athologist Signature POC Glucose 225 (H) 65 - 199 [facility] mg/dL [facility] Comment: Supplemental ranges: <140 mg/dL before meals <180 mg/dL all other times of the day Specimen Anatomical Collection Method Collection Time Receive d Time (Source) Location / / Volume Laterality Blood specimen 07/05/2017 10:05 7 (specimen) PM EST 10:05 PM EST Daphne Shahid MD POINT OF CARE TEST ORDERABLE S Performing Organization Address City/State/[place] [address] (ABNORMAL) POCT Glucose (07/05/2017 9:02 PM EST) P athologist Signature POC Glucose 301 (H) 65 - 199 [facility] RYAN mg/dL [facility] Comment: Supplemental ranges: <140 mg/dL before meals <180 mg/dL all other times of the day Specimen Anatomical Collection Method Collection Time Receive d Time (Source) Location / / Volume Laterality Blood specimen 07/05/2017 9:02 PM 017 9:02 (specimen) EST PM EST Daphne Shahid MD POINT OF CARE TEST ORDERABLE S Performing Organization Address City/State/ZIP Code Phon e Number [address] XR Chest PA or [...] 474 ms MUSE SYSTEM (Bezet) Calculated P [place] 50 degrees MUSE SYSTEM Calculated R [place] -28 degrees MUSE SYSTEM Calculated T [place] 90 degrees MUSE SYSTEM INTERPRETATION Sinus tachycardia [...] Differential, Automated (07/05/2017 8:20 PM EST) [facility] gist Method Time Signature Neutrophils % 88.4 % [facility] LABORATORY Neutr Abs (ANC) 9.08 (H) 1.70 - [facility] 6.10 [facility] x10(3)/[facility] L LABORATORY Lymphocytes % 7.0 % [facility]ORATORY Lymphocytes Abs 0.7 (L) 0.9 - 3.2 [facility] x10(3)/[facility] LABORATORY Monocytes % 3.7 % [facility]OR[facility]ORY Monocyte Abs 0.4 0.3 - 0.9 [facility] x10(3)/[facility] LABORATORY Eosinophils % 0.1 % [facility]ORY Eosinophils Abs 0.0 0.0 - 0.4 [facility] x10(3)/[facility] LABORATORY Basophils % 0.2 % [facility] Basophils Abs 0.0 0.0 - 0.1 [facility] x10(3)/[facility] LABORATORY Immature Gran % 0.60 % ST. [...] City/State/Z[place] [address] (ABNORMAL) Hemogram (07/05/2017 8:20 PM EST) Analysis Performed At Patho logist Time Signature WBC 10.3 (H) 4.0 - 9.5 [facility] x10(3)/[facility] LABORATORY RBC 4.64 4.58 - [facility] RYAN 5.54 [facility] x10(6)/[facility] LABORATORY Hemoglobin 14.1 13.7 - [facility] 16.5 gm/dL [facility] Hematocrit 40.8 40.5 - [place] 48.5 % [facility] MCV 87.9 82.9 - [facility] 93.1 [facility] LABORATORY MCH 30.4 27.5 - [facility] 32.1 pg [facility] MCHC 34.6 32.0 - [facility] 35.7 gm/dL [facility] Platelets 204 145 - 357 [facility] x10(3)/[facility] LABORATORY RDWSD 46.1 (H) 36.0 - [facility] RYAN 45.0 fL [facility] LABORATORY RDWCV 14.5 (H) 11.4 - [facility] 13.8 % [facility] MPV 9.7 7.6 - 12.9 [facility] LABORATORY nRBC % Auto 0.0 % [facility] LABORATORY nRBC Abs Auto 0.000 0.000 - [place] [facility] 0.000 [facility] x10(3)/[facility] LABORATORY Specimen Anatomical Collection Method Collection Time Receive d Time (Source) Location / / Volume Laterality Blood specimen 07/05/2017 8:20 PM 017 8:27 (specimen) EST PM EST Resulting Agency Comment Spec In Lab Daphne Shahid MD HEMATOLOGY ORDERABLES Performing Organization Address City/[facility]/ZIP Code Phon e Number [address] APTT (07/05/2017 8:20 PM EST) P athologist Signature PTT 32 25 - [address] [facility] Comment: The recommended therapeutic range for fu ll dose, unfractionated heparin at [facility] is 80 [...] Comment Spec In Lab Dahpne Shahid MD HEMATOLOGY ORDERABLES Performing Organization Address City/[facility]/ZIP [facility] [place] [address] (ABNORMAL) Cardiac Enzymes (LEB/CGP) (07/05/2017 8:20 PM EST) P athologist Signature Troponin-T 2.11 (H) 0.00 - [facility] ng/mL [facility] Comment: The 99th percentile for [...] additional sample may be indicated. Reference: Third Tovey Definition of Myocardial Infarction. Journal of the [place] [employer]iology 2012;60:1581-98 CK, Total 149 0 - 200 unit/L [facility] Specimen Anatomical Collection Method Collection Time Receive d Time (Source) Location / / Volume Laterality Blood specimen 07/05/2017 8:20 PM 017 8:27 (specimen) EST PM EST Resulting Agency Comment Spec In Lab Daphne Shahid MD CHEMISTRY ORDERABLES Performing Organization Address City/[facility]/[place] [address] (ABNORMAL) Magnesium (07/05/2017 8:20 PM EST) athologist Signature Magnesium 0.68 (L) 0.69 - 1.07 [facility] mmol/L [facility] Specimen Anatomical Collection Method Collection Time Receive d Time (Source) Location / / Volume Laterality Blood specimen 07/05/2017 8:20 PM 017 8:27 (specimen) EST PM EST Resulting Agency Comment Spec In Lab Daphne Shahid MD CHEMISTRY ORDERABLES Performing Organization Address City/State/[place] [address] (ABNORMAL) Basic Metabolic Panel (non-fasting) (07/05/2017 8:20 PM EST) athologist Signature Glucose Lvl 321 (H) 65 - 199 [facility] mg/dL [facility] Comment: Diabetes: >=200 mg/dL [...] or in patients with acute kidney failure. [email or web address]/DHnkdep [email or web address]/DHMCnkf Specimen Anatomical Collection Method Collection Time Receive d Time (Source) Location / / Volume Laterality Blood specimen 07/05/2017 8:20 PM 017 8:27 (specimen) EST PM EST Resulting Agency Comment Spec In Lab Daphne Shahid MD CHEMISTRY ORDERABLES Performing Organization Address City/State/[place] [address] (ABNORMAL) POCT Glucose (07/05/2017 7:32 PM EST) athologist Signature POC Glucose 296 (H) 65 - 199 [facility] mg/dL [facility] Comment: Supplemental ranges: <140 mg/dL before meals <180 mg/dL all other times of the day Specimen Anatomical Collection Method Collection Time Receive d Time (Source) Location / / Volume Laterality Blood specimen 07/05/2017 7:32 PM 017 7:32 (specimen) EST PM EST Daphne Shahid MD POINT OF CARE TEST ORDERABLE S Performing Organization Address City/State/Z[place] [address] CARDIAC CATHETERIZATION (07/05/2017 6:47 PM EST) Specimen (Source) Anatomical Location Collection Method / Collectio n Time Received Time / Laterality Volume Narrative CARDIOMAC SYSTEM - 07/05/2017 7:27 PM ES T ?[facility] ? Cardiac Cathete rization/Intervention Report ? Patient Name: Natalya, Gregory ? Procedure Date: 07/05/2017 ? A #: [id number] ? Primary Physician: Clarisa, Jet T ? Case #: [id number] ? File Name: [id number] ? Catheterization Order Number: [id number] ? [facility] Control [facility] ? Final Report [place], [place] ? Patient Name: ? Gregory Natalya ?ID#: ?[id number] ? : ?1945 ? Procedure Date: ? [...] presented with: non -STEMI (w/i 7 days). [place] ?Cardiovascular Society angina c lass was IV. [...] site angio graphy and IABP insertion in oven laborer. ? Jet Mckenna, M.D. ? Electronically Signed by: Jet Sampson DeVrizack s, M.D. ? Report Finalized: 07/05/2017 ??19:23 ? Report Last Ammended: 10/26/2017 ??10:29 ? Procedure Note Jet Mckenna MD - 10/26/2017Formatt ing of this note might be different from the original. [facility] Cardiac Catheterization/Intervention Re port Patient Name: Gregory Hoang Procedure Date: 07/05/2017 A #: [id number] Primary Physician: Jet Mckenna Case #: [id number] File Name: [id number] Catheterization Order Number: [id number] [facility] Document Control Supervisor [facility] Final Report [place], [place] Patient Name: Gregory Hoang ID#: [id number] : 1945 Procedure Date: July 05, [...] presented with: non-STEMI ( w/i 7 days). [place] [employer] angina class was IV. No [...] descending thoracic aorta under fluoroscopy guidrenato de elon. There was good diastolic augmentation and systolic unloading. Successful IABP placement. The attending physician was present for the entire procedure. Dr. Jet Mckenna M.D. was present d uring the moderate sedation intraservice time as documented by the sedation nurse. Case time = 00:42. Dr. Jet Mckenna M.D. performed the coronary angiography, left heart catheterization, access site angiograph y and IABP insertion in oven laborer. Jet Mckenna M.D. Electronically Signed by: [...] Mccollum ? (Age): 1945(72y) Med Rec#: ? [id number] ?Sex: ?M ? Site Loc: ? [facility] ?Ht / Wt: ??173(cm)/86(kg) Pt. Loc: ?[facility] ? BSA: ?2 Study Date: ?? 07/05/2017 ?Pt. Type: Inpatient Tape: ? Referring: Daphne Shahid ([id number]) Referring: MANDA ALCANTAR Reading: Blade Preston ([id number]) Irrigation Pump Installer: Dayami Paula BA, [facility] Diagnosis: *ICD-10-PCS Non-ST elevation (NSTEMI) m yocardial [...] E-wave Vmax ?0.8 ?m/sec ? MV deceleration [id number] ?msec ? MV A-wave Vmax ?0.8 ?m/sec [...] ? Mid-Inferior ?Akinetic ? Mid-Inferoseptal ?Hypokinetic ? [place]-Septal ? Akinetic ? Pleasant [place]-Anterior ? Hypokinetic ? [place]-Lateral ?Hypokinetic ? [place]-Inferior ? Akinetic ? [place]-Tip ?Akinetic ? This report has been electronically sign ed by: _ Blade Preston MD ? 07/06/2017 08 :53:15 Images [facility] Procedure Note Blade Preston MD - 07/06/2017Formatt ing of this note might be different from the original. Procedure: Transthoracic Echocardiogram Patient: NATALYA MCBRIDE(Age): [birth year]72y) Med Rec#: [id number] Sex: M Site Loc: [facility] Ht / Wt: 173(cm)/86(kg) Pt. Loc: [facility] BSA: 2 Study Date: 07/05/2017 Pt. Type: Inpatie nt Tape: Referring: Daphne Shahid ([id number]) Referring: MANDA ALCANTAR Reading: Blade Preston ([id number]) Irrigation Pump Installer: Dayami Paula BA, [facility] Diagnosis: *ICD-10-PCS Non-ST elevation (NSTEMI) m yocardial [...] MV E-wave Vmax 0.8 m/sec MV deceleration [id number] msec MV A-wave Vmax 0.8 m/sec MV [...] Hypokinetic Mid-Posterolateral Hypokinetic Mid-Inferior Akinetic Mid-Inferoseptal Hypokinetic [place]-Septal Akinetic [place]-Anterior Hypokinetic [place]-Lateral Hypokinetic [place]-Inferior Akinetic [place]-Tip Akinetic This report has been electronically sign [...] Neutr Abs (ANC) 5.26 1.70 - [facility] 6.10 [facility] x10(3)/[facility] LABORATORY Lymphocytes % 13.3 % [facility] LABORATORY Lymphocytes Abs 0.9 0.9 - 3.2 [facility] x10(3)/[facility] LABORATORY Monocytes % 8.2 % [facility] LABORATORY Monocyte Abs 0.6 0.3 - 0.9 [facility] x10(3)/[facility] LABORATORY Eosinophils % 0.7 % [facility] LABORATORY Eosinophils Abs 0.0 0.0 - 0.4 [facility] x10(3)/[facility] LABORATORY Basophils % 0.4 % [facility] LABORATORY Basophils Abs 0.0 0.0 - 0.1 [facility] x10(3)/[facility] LABORATORY Immature Gran [...] Melisa Gran Abs 0.03 0.00 - 0.04 x10(3)/[facility] MAR Y [facility] LABORATORY Specimen Anatomical Collection Method Collection Time Receive d Time (Source) Location / / Volume Laterality Blood specimen 07/05/2017 4:55 PM 017 5:24 (specimen) EST PM EST Resulting Agency Comment Spec In Lab Daphne Shahid MD HEMATOLOGY ORDERABLES Performing Organization Address City/State/[place] [address] (ABNORMAL) Hemogram (07/05/2017 4:55 PM EST) Analysis Performed At Patho logist Time Signature WBC 6.8 4.0 - 9.5 [facility] x10(3)/[facility] LABORATORY RBC 4.67 4.58 - [facility] x10(6)/[facility] LABORATORY Hemoglobin 14.0 13.7 - [facility] 16[facility] gm/dL [facility] LABORATORY Hematocrit 41.0 40.5 - [facility] 48.5 % [facility] MCV 87.8 82.9 - [facility] 93.1 [facility] LABORATORY MCH 30.0 27.5 - [facility] 32.1 pg [facility]ATORY MCHC 34.1 32.0 - [facility] 35.7 gm/dL [facility] LAB[facility]ATORY Platelets 197 145 - 357 [facility] x10(3)/[facility] LABORATORY RDWSD 46.4 (H) 36.0 - [facility] 45.0 [facility] LABORATORY RDWCV 14.5 (H) 11.4 - [facility] 13.8 % [facility] LABORATORY MPV 9.7 7.6 - 12.9 [facility] LABORATORY nRBC % Auto 0.0 % [facility] LABORATORY nRBC Abs Auto 0.000 0.000 - [facility] 0.000 [facility] x10(3)/[facility] LABORATORY Specimen Anatomical Collection Method Collection Time Receive d Time (Source) Location / / Volume Laterality Blood specimen 07/05/2017 4:55 PM 017 5:24 (specimen) EST PM EST Resulting Agency Comment Spec In Lab Daphne Shahid MD HEMATOLOGY ORDERABLES Performing Organization Address City/[facility]/[place] [address] (ABNORMAL) Cardiac Enzymes (LEB/CGP) (07/05/2017 4:55 PM EST) athologist Signature Troponin-T 1.69 (H) 0.00 - [facility] 0.[facility] ng/mL [facility] LABORATORY Comment: The 99th percentile for [...] additional sample may be indicated. Reference: Third Tovey Definition of Myocardial Infarction. Journal of the [place] [employer] 2012;60:1581-98 CK, Total 191 0 - 200 unit/L [facility] LABORATORY Specimen Anatomical Collection Method Collection Time Receive d Time (Source) Location / / Volume Laterality Blood specimen 07/05/2017 4:55 PM 017 5:56 (specimen) EST PM EST Resulting Agency Comment Spec In Lab Daphne Shahid MD CHEMISTRY ORDERABLES Performing Organization Address City/[facility]/[place] [address] (ABNORMAL) pro-Brain Natriuretic Peptide (07/05/2017 4:55 PM EST) athologist Signature ProBNP 1,598 (H) <=125 [facility] pg/mL [facility] LABORATORY Specimen Anatomical Collection Method Collection Time Receive d Time (Source) Location / / Volume Laterality Blood specimen 07/05/2017 4:55 PM 017 5:24 (specimen) EST PM EST Resulting Agency Comment Spec In Lab Daphne Shahid MD CHEMISTRY ORDERABLES Performing Organization Address City/[facility]/ZIP Code Phon e Number [address] Magnesium (07/05/2017 4:55 PM EST) athologist [facility] Magnesium 0.78 0.69 - 1.07 [facility] mmol/L [facility] LABORATORY Specimen Anatomical Collection Method Collection Time Receive d Time (Source) Location / / Volume Laterality Blood specimen 07/05/2017 4:55 PM 017 5:24 (specimen) EST PM EST Resulting Agency Comment Spec In Lab Daphne Shahid MD CHEMISTRY ORDERABLES Performing Organization Address City/[facility]/ZIP Code Phon e Number [address] (ABNORMAL) Basic Metabolic Panel (non-fasting) (07/05/2017 4:55 PM EST) athologist [facility] Glucose Lvl 230 (H) 65 - 199 [facility] mg/dL [facility] LABORATORY Comment: Diabetes: >=200 mg/dL plus symp toms BUN 19 10 - 20 mg/dL [facility] LABORATORY Creatinine 1.04 0.80 - 1.50 [...] in patients with acute kidney failure. [email or web address]/DHnkdep [email or web address]/DHMCnkf Specimen Anatomical Collection Method Collection Time Receive d Time (Source) Location / / Volume Laterality Blood specimen 07/05/2017 4:55 PM 017 5:24 (specimen) EST PM EST Resulting Agency Comment Spec In Lab Daphne Shahid MD CHEMISTRY ORDERABLES Performing Organization Address City/[facility]/[place] [address] (ABNORMAL) APTT (07/05/2017 4:55 PM EST) P athologist Signature PTT 41 (H) 25 - [address] [facility] LABORATORY Comment: The recommended therapeutic range for fu ll dose, unfractionated heparin at [facility] is 80 [...] MD HEMATOLOGY ORDERABLES Performing Organization Address City/[facility]/[place] [address] (ABNORMAL) POCT Glucose (07/05/2017 4:53 PM EST) P athologist Signature POC Glucose 208 (H) 65 - 199 [facility] mg/dL [facility] LABOR[facility] Comment: Supplemental ranges: <140 mg/dL before meals <180 mg/dL all other times of the day Specimen Anatomical Collection Method Collection Time Receive d Time (Source) Location / / Volume Laterality Blood specimen 07/05/2017 4:53 PM 017 4:53 (specimen) EST PM EST Daphne Shahid MD POINT OF CARE TEST ORDERABLE S Performing Organization Address City/State/[place] [address] EKG 12 Lead (07/05/2017 4:32 PM EST) Component Value Ref Range Test Analysis Performed Pathologis t Method Time At Signature Ventricular rate 97 BPM MUSE SYSTEM Atrial Rate 97 BPM MUSE SYSTEM P-R Interval 148 ms MUSE SYSTEM QRS Duration 96 ms MUSE SYSTEM Q-T Interval 364 ms MUSE SYSTEM QTC Calculated 462 ms MUSE SYSTEM (Bezet) Calculated P [place] 48 degrees MUSE SYSTEM Calculated R [place] -33 degrees MUSE SYSTEM Calculated T [place] 98 degrees MUSE SYSTEM INTERPRETATION Normal sinus [...] Denice Jacobson RN) 0532 (Given - Provider: eDnice Jacobson, VAMSI)1330 (Not Given - Provider: Myrna [...]
Routine documented in this encounter Care Teams Consulting Sales Manager Relationship Specialty Start Date End Date Lovely Vicente MD PCP - General 04/16/[address] [place] [address] documented as of this encounter
--- OUTSIDE RECORDS SUMMARY | 2022-03-06 08:14 | XMS_ITS | Encounter Summary ---
:1945 [place] [address] Care Team Providers Name Role Phone Lovely Vicente MD Primary Care Provider Reason for Visit Auth/Cert Specialty Diagnoses / Procedures Referred By Contact Refer red To Contact Diagnoses STEMI (ST elevation myocardial infarction) NSTEMI STEMI Procedures CARDIAC CATHETERIZATION NAYE IPI Referral ID Status Reason Start Date Expiration Date Visits Requ ested Visits Authorized [id number] 1 1 Encounter Details Date Type Department Care Team Description 07/07/2017 Anesthesia Event Main Operating Room Yifan Jaime MD [facility] [place] [address] [facility] Ginny Murray MD [facility] [place] [address] [facility] [place] [address] Anesthesia Record Procedure Summary Procedure Name [...] 2342 LDA Cath/EP Sheath 07/05/17; 0606; 8 Luxembourger 07/05/17 0606 by [id number] by (Fr); Right; Femoral [place], Yane Cook, RN PIV 07/05/17; 1720; median 07/05/17 1720 by 07/11/17 2355 by vein (underside of arm), Prior, Yanet Mzaa, VAMSI Crum, Angela Gomes, left; 18 gauge; removed PRODUCT RESPONSIBILITY LIAISON per policy/procedure; 07/11/17; 2355 Intra-Aortic Balloon 07/05/17; [...] Miller, Carrie L, Type: Cuffed; ETT Size: DISPENSING OPERATOR 8 mm; Santiago Blade: 2; Notes: Asleep, [...] MD - 07/08/2017 5:08 PM EST [facility] Department of Anesthesiology Post-procedure Note Patient: Don Fatima Procedure Summary Date Anesthesia Start Anesthesia Stop Room / Location 07/07/17 1335 1836 [facility] OR [facility] MAIN OR Procedure Diagnosis Surgeon Responsible Provider @CABG, USING ARTERIAL GRAFT;SINGLE ARTERIAL GRAFT (WRVU 33.75) (N/A Chest); @CABG, TWO VENOUS GRAFTS & ARTERIAL GRAFT (WRVU 7.93) (N/A Chest); ENDOSCOPIC HARVEST VEIN(S) FOR CABG (WRVU 0.31) (Right Leg) (CAD) Yuan Freitas MD Hartman, Gregg S, MD All Anesthesia Providers: Anesthesiologist: Yifan Perez MD Powertrain Calibration Engineer: Ginny Murray MD Most Recent Vitals: 07/08/17 [...] SETUP performed by Manny Mcknight MD at [facility] MAIN OR ??? PRO COLONOSCOPY, REMV LESN, SNARE 01/16/2014 COLONOSCOPY, POLYPECTOMY, REMOVAL LESION BY SNARE performed by Nohemi Jaimes MD at [facility] ENDOSCOPY ??? PRO THYROIDECTOMY 03/28/2013 THYROIDECTOMY, TOTAL OR COMPLETE performed by Manny Mcknight MD at [facility] MAIN OR Social History Substance Use [...] [facility] ER [address] [place], [place] [address] (Wo rk) 06/10/2022 Office Visit Dermatology Laura Scherer MD [facility] DR TE[address] GR-DERMAT OGY [place], [place] [address] (Wo rk) documented as of [...] mg documented in this encounter Care Teams Sole Conditioner Relationship Specialty Start Date End Date Lovely Vicente MD PCP - General 04/16/[address] [place] [address] documented as of this encounter
--- OUTSIDE RECORDS SUMMARY | 2022-03-06 08:16 | XMS_ITS | Encounter Summary ---
:1945 Author Organization [facility] [place] [address] Care Team Providers Name Role Phone MiyaLokeshAngela STACIE Primary Care Provider Reason for Visit Reason Onset Date Comments Post-op Problem 04/05/2013 voiding trial Encounter Details Date Type Department Care Team Description 04/05/2013 Telephone Urology at [facility] Blade Smith, Post-op Problem [facility] (voiding trial) [place] [phone] UROLOGY DEPT [place] [id number] (Wo rk) Social History Tobacco Use Types [...] Nobles MD [facility] [address] [place], [place] [address] (Wo rk) 06/10/2022 Office Visit Dermatology Laura Scherer MD [facility] [address] TE[address] GR-DERMAT OLOGY [place], [place] [address] (Wo rk) documented as of this encounter Visit Diagnoses Not on filedocumented in this encounter Care Teams Livestock Yard Supervisor Relationship Specialty Start Date End Date Angela Holliday APRN PCP - General 01/25/13 04/15/[address] [place] [address] documented as of this encounter
--- OUTSIDE RECORDS SUMMARY | 2022-03-06 08:16 | XMS_ITS | Encounter Summary ---
:1945 [place] [address] Care Team Providers Name Role Phone Lovely Vicente MD Primary Care Provider Reason for Visit Auth/Cert Specialty Diagnoses / Procedures Referred By Contact Refer red To Contact Diagnoses STEMI (ST elevation myocardial infarction) NSTEMI STEMI Procedures CARDIAC CATHETERIZATION NAYE IPI Referral ID Status Reason Start Date Expiration Date Visits Requ ested Visits Authorized [id number] 1 1 Encounter Details Date Type Department Care Team Description 07/05/2017 Surgery Quilter Fixer Jet Guan, CARDIAC CATHETERIZATION [facility] [place] [address] CARDIOLOGY DEPT. [phone] [place], [place] [address] (Wo rk) Social History Tobacco [...] this encounter Discharge Summaries Martha Teague S, SOCIAL MEDIA STRATEGIST - 07/14/2017 9:38 AM EST Inpatient - [...] , @ 1:20p Patient to follow-up with Short Order Fry Cook/heart failure team in one week. An appointment will be made for you. You may call [phone] Patient to follow-up with Cardiac Surgery, Dr. Yuan Webber, in ~ 4 weeks with CXR, EKG. Inpatient Provider Contact Information: [facility] Section of [place]iac Surgery [facility] [place] [address] FAX [phone] Discharge Diagnoses (Hospital Problems) Primary Diagnoses: CAD [...] SETUP performed by Manny Mcknight MD at [facility] OR ??? PRO CABG, ARTERIAL, SINGLE N/A 07/07/2017 @CABG, USING ARTERIAL GRAFT;SINGLE ARTERIAL GRAFT (WRVU 33.75) performed by Yuan Webber MD at [facility] OR ??? PRO CABG, ARTERY-VEIN, TWO N/A 07/07/2017 @CABG, TWO VENOUS GRAFTS & ARTERIAL GRAFT (WRVU 7.93) performed by Yuan Webber MD at [facility] OR ??? PRO COLONOSCOPY, REMV LESN, SNARE 01/16/2014 COLONOSCOPY, POLYPECTOMY, REMOVAL LESION BY SNARE performed by Nohemi Jaimes MD at [facility] ENDOSCOPY ??? PRO ENDOSCOPY W/VIDEO-ASST VEIN HARVEST, CABG Right 07/07/2017 ENDOSCOPIC HARVEST VEIN(S) FOR CABG (WRVU 0.31) performed by Yuan Webber MD at [facility] OR ??? PRO THYROIDECTOMY 03/28/2013 THYROIDECTOMY, TOTAL OR COMPLETE performed by Manny Mcknight MD at [facility] OR Prior To Admission Medications Prescriptions Prior to Admission Medication Sig Dispense Refill Last Dose ??? levothyroxine (SYNTHROID) 175 mcg Tablet Take 1 tablet by mouth daily. 90 tablet 3 07/05/2017 [id number] ??? ascorbic acid, vitamin C, (VITAMIN C) [...] hospital and ruled infor non-ST segment elevation RI. This almost certainly represents the residual of [...] Course: Gregory Hoang was admitted to [facility] on 07/05/2017 via the Cardiology Service. During his hospital course, he was taken emergently to the chemical lab supervisor for an ongoing STEMI. An IABP was [...] not take or discontinue any prescription or pilo-zpi-oolvpje medications without asking your doctor or pharmacist [...] insulin doses adjusted. [facility] Endocrine clinic office [...] Yuan Webber and/or the Cardiac Surgery Physician Procedure Manager Team may be reached at . [...] Dr. Yuan Webber. You may use a [place] Track or treadmill but avoid any pulling [...] friends, go to a movie, go to jain, etc. Heavy activities: No hunting, skiing, jogging, snow shoveling, snowmobiling, lawn mowing, swimming, golf or tennis until after your return appointment with the surgeon. Do not ride motorcycles, [employer] tractors or horses. Avoid the use of [...] should resume a low fat, low cholesterol, [place] Heart Association Diet/Diabetic diet. Driving: No driving [...] , @ 1:20p Patient to follow-up with Short Order Fry Cook/heart failure team in one week. Appointment will be made for you. You may call [phone] Patient to follow-up with Cardiac Surgery, Dr. Yuan Webber, in ~ 4 weeks with CXR, EKG. Cardiac Rehabilitation: Gregory Hoang was seen today regarding participation in the outpatient Phase 2 Cardiac Rehabilitation at [facility]. The patient agrees to a referral to this program. The referral will be sent at discharge and the patient should be contacted by the Program within 1- 2 weeks from discharge. ?? Future Appointments and Orders Future Appointments Provider Department Dept Phone 09/07/2017 3:00 PM LAB, THREE L Lab 3L [facility] [phone] 09/07/2017 4:00 PM Luz Prescott MD [facility] [phone] Future Orders Complete By Expires EKG 12 Lead [EKG1 Custom] 08/14/2017 02/13/2018 Process Instructions: Scheduling Instructions: Questions: Which [facility] location will this be performed?: [facility] Is a rhythm strip needed?: No If EKG Reason is Pre-op Evaluation, indicate diagnosis for surgery.: XR Chest PA & Lateral (Generic) [23754 [id number] Custom] 08/14/2017 02/13/2018 Process Instructions: Scheduling Instructions: Questions: Where will study be performed?: [facility] Portable exam?: Reason for exam and clinical history: CABG x 3 Other pertinent information: Stat read required?: Date of injury if applicable: Requested Time: Referral to Cardiac Rehab [ISD754 Custom] As directed Process Instructions: If no progress note charted, please enter Clinical details in comments. Scheduling Instructions: Questions: My question or request is: s/p CABG. Cardiac rehab at [facility] Referral to Home Health - at DISCHARGE [IAV1628 CPT(R)] As directed Process Instructions: Scheduling Instructions: Comments: DOCUMENTATION FOR VNA SERVICES (INCLUDING THOSE PATIENTS WITH MEDICARE COVERAGE REQUIRING HOME VNA SERVICES AND/OR HOSPICE SERVICES) PATIENT'S LOCATION: Gregory Hoang [address] [place] [address] [place] [address] (home) Telephone Information: [employer] Travel Counselor's Name: self In discussion with the attending physician, it is certified that this patient is under their care and that they, or a Nurse Practitioner, or Physician Procedure Manager who is working directly with them, [...] [facility] ([facility] [place] [facility]-is in [place] PHONE: [phone] FAX: [phone] RN orders: Cardiopulmonary assessment, incisional assessment, assess vital signs, assessment of rehab progress, medication management and effectiveness, home safety evaluation. Please draw INR if indicated and send result to:Dr Vicente [phone] PT ORDERS: Continue rehab for endurance, gait stability and strength with mobility and transfers. Home safety evaluation. Home exercise program if appropriate. Start of Care Date:24-48 hours after discharge SPECIAL INSTRUCTIONS: For any follow up questions, needs, or issues please call the Cardiac Surgery Office at [phone] FOR MEDICARE ONLY: (please delete this section [...] [facility] [place] [address] FAX [phone] Date: 07/14/2017 CC: MD Ivania Cr Betsy, PA [address] [place] [phone] documented in this encounter Discharge Instructions Discharge [...] insulin doses adjusted. [facility] Endocrine clinic office [...] not take or discontinue any prescription or izxg-vmc-vsvlzqn medications without asking your doctor or pharmacist [...] insulin doses adjusted. [facility] Endocrine clinic office [...] Yuan Webber and/or the Cardiac Surgery Physician Procedure Manager Team may be reached at . [...] Dr. Yuan Webber. You may use a [place] Track or treadmill but avoid any pulling [...] friends, go to a movie, go to jain, etc. ?? Heavy activities: No hunting, skiing, jogging, snow shoveling, snowmobiling, lawn mowing, swimming, golf or tennis until after your return appointment with the surgeon. Do not ride motorcycles, [employer] tractors or horses. Avoid the use of [...] should resume a low fat, low cholesterol, [place] Heart Association Diet/Diabetic diet. ?? Driving: No [...] @ 1:20p ?? Patient to follow-up with Short Order Fry Cook/heart failure team in one week. An appointment has been made for you, you can call [phone] ?? Patient to follow-up with Cardiac Surgery, Dr. Yuan Webber, in ~ 4 weeks with CXR, EKG. ? Cardiac Rehabilitation: Gregory Hoang??was seen today regarding participation in the outpatient Phase 2 Cardiac Rehabilitation at [facility]. ?? The patient agrees to a referral to this program.? The referral will be sent at discharge and the patient should be contacted by the Program within 1- 2 weeks from discharge. ? Future Appointments and Orders Future Appointments Provider Department Dept Phone ?? 09/07/2017 3:00 PM LAB, THREE L Lab 3L [facility] [phone] ?? 09/07/2017 4:00 PM Luz Prescott MD [facility] [phone] Future Orders Complete By Expires ?? EKG 12 Lead [EKG1 Custom] 08/14/2017 02/13/2018 ?? Process Instructions: ? Scheduling Instructions: ? Questions: ? Which location will this be performed?: [facility] ?? Is a rhythm strip needed?: No ?? If EKG Reason is Pre-op Evaluation, indicate diagnosis for surgery.: ?? XR Chest PA & Lateral (Generic) [[id number] Custom] 08/14/2017 02/13/2018 ?? Process Instructions: ? Scheduling Instructions: ? Questions: ? Where will study be performed?: [facility] ?? Portable exam?: ?? Reason for exam and clinical history: CABG x 3 ?? Other pertinent information: ?? Stat read required?: ?? Date of injury if applicable: ?? Requested Time: ?? Referral to Cardiac Rehab [OQX537 Custom] As directed ? Process Instructions: ?? If no progress note charted, please enter Clinical details in comments. ?? Scheduling Instructions: ? Questions: ? My question or request is: s/p CABG. Cardiac rehab at [facility] ? Arrangements for VNA/home care: [...] RN - 07/14/2017 2:34 PM EST The patient/product sales representative has been provided a list of Home Health Agencies/DME vendors which serve their preferred geographic area. A letter describing our affiliations was reviewed with them and theywere educated about their right to choose where referrals are placed. Patient requests referral to [facility]. PHONE: [phone] FAX: [phone] Expected date of discharge: 07/14 Referral routed to the Parking Officer for matching with agency/vendor and to [...] insulin doses adjusted. [facility] Endocrine clinic office Kathie Carrera APRN [facility] Endocrinology Diabetes Management Pager [phone] minutes of this 35 minute visit was spent with the patient in counseling on diabetes and treatment plan, reviewing all glucose and insulin data as well as relevant laboratory results with the patient, and coordination of care on the inpatient unit including nursing and primary team. Zulma Andres RN - 07/14/2017 10:30 AM EST The patient/product sales representative has been provided a list of Home Health Agencies/DME vendors which serve their preferred geographic area. A letter describing our affiliations was reviewed with them and theywere educated about their right to choose where referrals are placed. Patient requests referral to : Yasmani Munguia ([facility] [place] [facility]-is in [place]) PHONE: [phone] FAX: [phone]. Expected date of discharge: 07/14/17 Referral routed to the Parking Officer for matching with agency/vendor and to [...] hours. If BG remains greater than 240, gmohsb90 units (no more than three times) &??call [...] #6 s/p CABG X3. FSBG 80 at [place], reports no symptoms but did drink some [...] Katerin Azul APRN [facility] Endocrinology Diabetes Management Pager [phone] minutes of this 25 minute visit [...] of infiltration/extravasation Discussed plan of care with WEB PAGE DEVELOPER and RN. Elevate exrtemity and apply intermittent Warm compresses. Name of MD contacted Dr. Shaw Brown 07/13/2017 @ 0655 Name of RN contacted Ale Rangel RN Name of Pharmacist if consulted NA Name of Plastics MD ( if consulted) NA (Mandatory photo for infiltrations/ extravasations scoring a stage 2 or greater, but recommended forstage 1)( include measuring tape and identifier in the photo) HEARING AID SPECIALIST CARING FOR THIS PATIENT WILL CONTINUE [...] measuring tape and identifier in the photo) HEARING AID SPECIALIST CARING FOR THIS PATIENT WILL CONTINUE TO MONITOR AND WILL ASSUME CARE, VASCULAR ACCESS WILL NOT FOLLOW THIS EVENT AT THE SIGNING OF THIS NOTE. Portlilo Jones RN - 07/13/2017 8:16 AM EST Images from the original note were not included. 0800 Amiodarone infiltration to LUE treated with hyaluronidase injections, elevation and warm compresses. STACIE Hernandez notified. Pt informed and advised of all nursing actions prior to implementation, all of Mr. Hoang's questions and concerns with regard to both infiltrates addressed by this radio script writer.All of Mr. Hoang's responses were entirely appropriate. Images of infiltrates attached here. Martha Sharp APRN - 07/13/2017 8:01 AM EST Cardiac Surgery Progress Note: ID: [id number] 72 year old male POD#6 s/p CABGx3 [...] discharge. ?? I have met with the patient/product sales representative to discuss discharge planning needs. I have provided the [facility], Office of Care Management letter from the Forensic Psychologist pertaining to rehab referrals. I have also provided a letter describing our affiliations within the [facility] and educated them about their right to choose where referrals are placed. ?? I reviewed the different levels of rehab including SNF, swing, acute and LTAC with the patient/product sales representative. ?? The patient/product sales representative has been provided a list of facilities within their preferred geographic area. ?? I have requested that the patient/product sales representative provide at least three choices for referral. ?? The patient/product sales representative have requested referrals to: ?? 1. . ?? 2. [facility] ?? 3. More to be entered ?? Expected date of discharge: 07/14 Note routed to Parking Officer who will communicate referrals to facilities and [...] hours. If BG remains greater than 240, tgkovk83 units (no more than three times) & [...] Katerin Azul APRN [facility] Endocrinology Diabetes Management Pager [phone] 20 minutes of this 35 minute visit was spent with the patient in counseling on diabetes and treatment plan, reviewing all glucose and insulin data as well as relevant laboratory results with the patient, and coordination of care on the inpatient unit including nursing and primary team. Makayla Stevenson APRN - 07/12/2017 9:52 AM EST Cardiac Surgery Progress Note: ID: [id number] 72 year old male POD#5 s/p CABGx3 [...] 07/11/2017 7:18 PM EST Patient arrived from [facility]. VSS. MSI dressing pulled off with [...] hours. If BG remains greater than 240, xwyhsz53 units (no more than three times) & [...] AM EST Cardiac Surgery Progress Note: ID: [id number] 72 year old male POD#4 s/p CABGx3 [...] ready will add on HF meds. Signed: MKAAYLA WILSON APRN Ninfa Shahid DT - 07/11/2017 [...] please consider alternative means of nutrition support. VIVAIN Butt Nell Simpson RN - 07/11/2017 7:15 [...] hours. If BG remains greater than 240, znuyxi50 units (no more than three times) & [...] AM EST Cardiac Surgery Progress Note: ID: [id number] 72 year old male POD#3 s/p CABGx3 [...] Gas) No results found for: PHART, PO2ART, TPN3AFF Assessment/Plan: 72 year old male POD#3 s/p [...] Thao - 07/09/2017 6:29 PM EST Supervisor Hand Silvering Encounter Note Patient Name: Gregory Hoang : [id number] MR#: [id number] Admit Date: 07/05/2017 4:20 PM Hospital Day 4 days Narrative: Patient was sitting in chair, hugging heart pillow, opened his eyes, nodding to come into room Assessment: Patient was sleepy. Intervention and Outcome: Introduced boiler room operator services and patient reached his hand out in appreciation. Follow-up: Supervisor Hand Silvering remains available for support. Time in Direct [...] 10:45 AM EST Report given to staff editor to cover care Maddison Cee PA - 07/09/2017 9:00 AM EST Cardiac Surgery Progress Note: ID: [id number] 72 year old male POD#2 s/p CABGx3 [...] Surgeon on rounds. Signed: STEPHANIE Iqbal [facility] Section of Cardiac Surgery Date: 07/09/2017 [...] AM EST Cardiac Surgery Progress Note: ID: [id number] 72 year old male POD#1 s/p CABGx3 [...] Surgeon on rounds. Signed: STEPHANIE Iqbal [facility] Section of Cardiac Surgery Date: 07/08/2017 [...] in place in R femoral. No hematoma. EXERCISE EQUIPMENT REPAIR TECHNICIAN- Intact Psych- Anxious Skin- Dry, no peripheral [...] intact. IABP in place in R femoral. EXERCISE EQUIPMENT REPAIR TECHNICIAN- Intact Psych- Anxious Skin- Dry, no peripheral [...] note for details. DAPHNE SHAHID MD Pager [phone] Jet Mckenna MD - 07/05/2017 6:48 PM EST Preliminary Cardiac Catheterization Procedure Note: Procedure(s) performed: Left heart cath, IABP insertion Access: Right ACCESS SERVICES LIBRARIAN-->8fr IABP A time-out was conducted prior to [...] effect. Heparin gtt maintained. Pt transferred to chemical lab supervisor. documented in this encounter H&P Notes Daphne Shahid MD - 07/05/2017 6:08 PM EST CARDIOLOGY HISTORY & PHYSICAL EXAM Date of Admission: 07/05/2017 ( Hospital Day 0 days ) Responsible Attending: Daphne Shahid MD PCP: Lovely Vicente MD PCP#: [phone] Patient Active Problem List Diagnosis Code ??? [...] load with heparin drip and transferred to [facility]. While there, continued sob, question of chest pain. Stat TTE showing WMA diffusely and EF around 20%. No significant valvular disease. Taken to the chemical lab supervisor urgently for ongoing STEMI. [facility] Labs: INR 1.0 WBC 5.88 [...] monitor I/O - s/p lasix in the chemical lab supervisor, redose to aim net neg 1L by [...] Medicine, PGY-2 Cardiology S1, Team Pager # [phone] CARDIOLOGY ATTENDING NOTE Patient: Gregory Hoang Date [...] amenable for PCI. DAPHNE SHAHID MD Pager [phone] documented in this encounter Miscellaneous Notes Consult Note - Daphne Shahid MD - 07/14/2017 11:46 AM EST Heart Failure Service Inpatient Consult Note Gregory Hoang Date of : 1945 Age: 72 y.o. Today's date: 07/14/17 PCP: Lovely Vicente MD RUG INSPECTOR HELPER: None Place of Service: [facility] [place] Reason for Consult: Dr. Webber has [...] SETUP performed by Manny Mcknight MD at [facility] OR ??? PRO CABG, ARTERIAL, SINGLE N/A 07/07/2017 @CABG, USING ARTERIAL GRAFT;SINGLE ARTERIAL GRAFT (WRVU 33.75) performed by Yuan Webber MD at [facility] OR ??? PRO CABG, ARTERY-VEIN, TWO N/A 07/07/2017 @CABG, TWO VENOUS GRAFTS & ARTERIAL GRAFT (WRVU 7.93) performed by Yuan Webber MD at [facility] OR ??? PRO COLONOSCOPY, REMV LESN, SNARE 01/16/2014 COLONOSCOPY, POLYPECTOMY, REMOVAL LESION BY SNARE performed by Nohemi Jaimes MD at [facility] ENDOSCOPY ??? PRO ENDOSCOPY W/VIDEO-ASST VEIN HARVEST, CABG Right 07/07/2017 ENDOSCOPIC HARVEST VEIN(S) FOR CABG (WRVU 0.31) performed by Yuan Webber MD at [facility] OR ??? PRO THYROIDECTOMY 03/28/2013 THYROIDECTOMY, TOTAL OR COMPLETE performed by Manny Mcknight MD at [facility] OR Outpt Meds: Current Outpatient Prescriptions [...] following studies: EKG 07/14/17: NSR 75 bpm, ALCOHOLISM WORKER anterior infarct, LAD CXR 07/11/17: FINDINGS: Sternotomy wires. The patient has been extubated, left chest tube removed, and [place]-Suzi catheter removed since the 07/07/2017 study. Atelectasis [...] was discussed with Zehra. Jaden Kelley MD Wet Roller Pager [phone] CARDIOLOGY ATTENDING NOTE Patient: Gregory Hoang Date [...] heart failure clinic. DAPHNE SHAHID MD Pager [phone] Plan of Care - Alden Chavarria PTA [...] home with assist Alden Chavarria PTA Pager: [phone] Inpatient Physical Therapy Problem: Acute Rehab Services [...] sit/sit to supine -- Bed Mobility Goal, Shannon Level supervision required -- Bed Mobility Goal, [...] - 3 days -- Gait Training Goal, Shannon Level supervision required -- Gait Training Goal, [...] days -- Transfer Training Goal, Activity Type sgw-zm-pktqp/ccpoi-av-sub;jtq-mj-mjnlj/ianui-qg-bmu;toilet -- Transfer Train Goal, Shannon Level supervision required -- Transfer Training Goal, [...] keeping present for 2 days per family. Tile Decorator noted of frustrations, house keeping sent to room. Patient offered showered twice, refused. at bedside, frustrated that shower not complete, informed that patient had refused several times. requesting to see PACKERHEAD MACHINE OPERATOR, paged sent to Martha, will come to bedside (middle of consult). not willing to wait, Martha notified that family had gone home. Encouraged to come for morning rounds a t 8am. Diabetes team at bedside - insulin adjustments made. Call cabello in reach. Continue to monitor. PLAN MOVING FORWARD: Ambulate, dressing changes BID, Please change drsg at 4am per Martha PACKERHEAD MACHINE OPERATOR request. INDIVIDUALIZED FALL PREVENTION INTERVENTIONS: [...] levels on the lower side, 60ml of [place] juice given after a FS of 80. [...] 07/13/17 0502 Interdisciplinary Rounds/Family Conf Participants case advocate;dietitian/nutrition services;nursing;occupational therapy;patient;pharmacy;physical therapy;physician Plan of Care - [...] monitoring required during toileting and ADLs]: RN WEB PAGE DEVELOPER Surveillance [continuous indirect monitoring]: Barrett Monitor CPG [...] Anticipated Discharge Disposition: home with assist Pager: [phone] CLARISSA SEGAL, PT 07/12/2017 Physical Therapy Rehabilitation [...] to sit/sit to supine Bed Mobility Goal, Shannon Level supervision required Bed Mobility Goal, Additional Goal adheres to psternal precautions for transfer Goal: Gait Training Goal Stand Alone Therapy Goal Outcome: Ongoing (Interventions Implemented as Appropriate) 07/12/17 1225 Gait Training Goal Gait Training Goal, Date Established 07/12/17 Gait Training Goal, Time to Achieve 2 - 3 days Gait Training Goal, Shannon Level supervision required Gait Training Goal, Assist [...] 3 days Transfer Training Goal, Activity Type ulu-zf-umvdh/fcigr-gs-sgw;ysf-zn-xfojp/ofcnd-gb-ujp;toilet Transfer Train Goal, Shannon Level supervision required Transfer Training Goal, Additional Goal adheres to sternal precautions during transfer Consult Note - Octavia Vaughn RN - 07/12/2017 10:50 AM EST [facility] CARDIAC REHABILITATION Gregory Hoang was seen today regarding participation in the outpatient Phase 2 Cardiac Rehabilitation at [facility]. The patient agrees to a [...] IV site, amio to other piv and TOOL AND EQUIPMENT RENTAL CLERK at bedside to help assess, IV removed. [...] staff, he stood and marched in place. Baxter weak, wanting to sit back down. Remained [...] Health/Prescription Coverage: Primary Insurance: MEDICARE Secondary Insurance: [employer] [place] Prescription Coverage: yes Preferred Pharmacy: [facility] Other: none Primary Care Provider: Lovely Vicente MD [phone] Patient/Caregiver Goals of Treatment:live and get my breath back Potential Needs for Transition of Care: Rehab/SNF: [facility] ; [facility] Home Health: NA DME: TBD Dialysis: na Community Resources: available Transportation: yes Other: none Anticipated Barriers to Discharge/Special Considerations: none Plan: Likely SNF Rehab before home A member of the Care Management team will continue to monitor progress, follow for continuity of care and assist with transition of care planning. ERLIN Weiss Pager: [phone] Consult Note - Katerin Azul RN - [...] management and to provide a review of nursing home diabetes care. Diabetes History: Gregory Hoang has [...] potential to d/c gtt and start CF. 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 Monitoring - continue BG tid ac & hs Diet - low fat/low carb diet Exercise - weight-bearing exercise 30 min/day, as tolerated Thank you for allowing us to provide care for your patient W/E coverage, Dr. Jeane Tatum, pager [phone] Katerin Azul APRN Endocrinology Diabetes Management Pager [phone] Plan of Care - Stephanie Godoy, RN [...] 6:27 PM EST [facility] Operative Note Patient Name: Gregory Hoang : [id number] MR#: [id number] Case Date: 07/07/2017 Surgeon: Surgeon(s) and Role: * Yuan Webber MD - Primary * Michael Drake PA - Physician Procedure Manager * Linda Flores PA - Physician Procedure Manager Preoperative diagnosis: 3VD Postoperative diagnosis: CAD, [...] Operative Note Patient Name: Gregory Hoang : [id number] MR#: [id number] Case Date: 07/07/2017 Surgeon: Surgeon(s) and Role: * Yuan Webber MD - Primary * Michael Drake PA - Physician Procedure Manager * Linda Flores PA - Physician Procedure Manager Preoperative diagnosis: 3VD Postoperative diagnosis: CAD, [...] (reference Cardiac: ACS (Acute Coronary Syndrome) (Adult) [facility]). 07/07/17621 Cardiac: ACS (Acute Coronary [...] major CV events such as , stroke, RI, repeat revascularization compared to PCI). In this [...] Hahn, MS3 [facility] [employer] [facility] Cardiology S1 (Pager [phone]) Plan of Care - Emelia Ibarra RN [...] hospital and ruled infor non-ST segment elevation RI. This almost certainly represents the residual of [...] performed by Manny Mcknight MD at [facility] MAIN OR ??? PRO COLONOSCOPY, REMV LESN, SNARE 01/16/2014 COLONOSCOPY, POLYPECTOMY, REMOVAL LESION BY SNARE performed by Nohemi Jaimes MD at [facility] ENDOSCOPY ??? PRO THYROIDECTOMY 03/28/2013 THYROIDECTOMY, TOTAL OR COMPLETE performed by Manny Mcknight MD at [facility] MAIN OR Social History: Social [...] with other involved physicians Yuan Webber MD [phone] Med Student Progress Note - Katty Hahn [...] major CV events such as , stroke, RI, repeat revascularization compared to PCI). 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 #Home Meds - continue levothyroxine 175mcg - CPAP at night ?? # Routine - DVT PPx: heparin drip - Diet: Healthy heart diet, NPO at midnight for CABG tomorrow - Code Status: FULL - Dispo: CVCC Katty Hahn, M3 [facility] Cardiology S1 (Pager [phone]) Plan of Care - Stephanie Godoy RN - 07/06/2017 5:00 AM EST Problem: Patient Care Overview Goal: Plan of Care Review 07/06/17 5996 Coping/Psychosocial Plan Of Care Reviewed With patient;family [...] in urinal without difficulty. Lasix given in chemical lab supervisor, 1.4 L out at this time. Pt [...] Outcome: Ongoing (Interventions Implemented as Appropriate) 07/06/17 8566 Cardiac: ACS (Acute Coronary Syndrome) Problems Assessed [...] Vitaliy Nobles MD [facility] CARDIOLOGY [place], [place] [address] (Wo rk) 06/10/2022 Office Visit Dermatology Laura Scherer MD [facility] [address]DERMAT OLOGY [place], [place] [address] (Wo rk) Scheduled Orders Name [...] procedure are i n the results section. FRAME EXPANDER SCAN 07/15/2017 12:00 Res ults for this [...] Routine 07/08/2017 4:00 Results f or this ([facility]) AM EST procedure [...] f or this ([facility]) PM EST procedure [...] f or this ([facility]) PM EST procedure [...] Routine 07/06/2017 12:00 ([facility]/SHANDA) PM EST APTT [...] f or this ([facility]) AM EST procedure [...] f or this ([facility]) AM EST procedure [...] Routine 07/05/2017 8:20 Results f or this ([facility]) PM EST procedure [...] f or this ([facility]) PM EST procedure [...] EXAMINATION: XR CHEST PA AND LATERAL (GE [employer]) CLINICAL HISTORY: CABG x 3 TECHNIQUE: PA [...] Teague APRN IMG DX ORDERABLES SCAN DOC: FRAME EXPANDER (07/15/2017 12:00 AM EST) Narrative 07/15/2017 12:00 [...] Signature POC Glucose 186 65 - 199 [facility] mg/dL [facility] Comment: Supplemental [...] Address City/State/ZIP Code Phon e Number [address] POCT Glucose (07/14/2017 7:52 AM EST) athologist Signature POC Glucose 126 65 - [address] [address] mg/dL [facility] Comment: Supplemental ranges: <140 mg/dL before meals <180 mg/dL all other times of the day Specimen Anatomical Collection Method Collection Time Receive d Time (Source) Location / / Volume Laterality Blood specimen 07/14/2017 7:52 AM 017 7:52 (specimen) EST AM EST Yuan Webber MD POINT OF CARE TEST ORDERABLE S Performing Organization Address City/State/[place] [address] (ABNORMAL) Prothrombin Time (07/14/2017 [...] [place] STACIE HEMATOLOGY ORDERABLES Performing Organization Address City/[facility]/ZIP Code Phon e Number [address] Potassium (07/14/2017 4:46 AM EST) athologist [facility] Potassium 4.3 3.5 - 5.0 [facility] mmol/L [facility] Comment: Please note: ??Patients [...] [place] STACIE CHEMISTRY ORDERABLES Performing Organization Address City/[facility]/ZIP Code Phon e Number [address] POCT Glucose (07/14/2017 4:34 AM EST) athologist Signature POC Glucose 115 65 - 199 [facility] mg/dL [facility] Comment: Supplemental ranges: <140 mg/dL before meals <180 mg/dL all other times of the day Specimen Anatomical Collection Method Collection Time Receive d Time (Source) Location / / Volume Laterality Blood specimen 07/14/2017 4:34 AM 017 4:34 (specimen) EST AM EST Yuan Webber MD POINT OF CARE TEST ORDERABLE S Performing Organization Address City/State/[place] [address] POCT Glucose (07/13/2017 11:33 PM EST) athologist Signature POC Glucose 132 65 - 199 [place] mg/dL [facility] Comment: Supplemental ranges: <140 mg/dL before meals <180 mg/dL all other times of the day Specimen Anatomical Collection Method Collection Time Receive d Time (Source) Location / / Volume Laterality Blood specimen 07/13/2017 11:33 7 (specimen) PM EST 11:33 PM EST Yuan Webber MD POINT OF CARE TEST ORDERABLE S Performing Organization Address City/State/[place] [address] POCT Glucose (07/13/2017 9:25 PM EST) athologist Signature POC Glucose 121 65 - 199 [facility] R[facility] mg/dL [facility] Comment: Supplemental [...] Address City/State/ZIP Code Phon e Number [address] POCT Glucose (07/13/2017 4:55 PM EST) athologist Signature POC Glucose 79 65 - 199 [facility] mg/dL [facility] Comment: Supplemental ranges: <140 mg/dL before meals <180 mg/dL all other times of the day Specimen Anatomical Collection Method Collection Time Receive d Time (Source) Location / / Volume Laterality Blood specimen 07/13/2017 4:55 PM 017 4:55 (specimen) EST PM EST Yuan Webber MD POINT OF CARE TEST ORDERABLE S Performing Organization Address City/State/[place] [address] POCT Glucose (07/13/2017 11:16 AM EST) athologist Signature POC Glucose 163 65 - 199 [facility] mg/dL [facility] Comment: Supplemental ranges: <140 mg/dL before meals <180 mg/dL all other times of the day Specimen Anatomical Collection Method Collection Time Receive d Time (Source) Location / / Volume Laterality Blood specimen 07/13/2017 11:16 7 (specimen) AM EST 11:16 AM EST Yaun Webber MD POINT OF CARE TEST ORDERABLE S Performing Organization Address City/[facility]/[place] [address] POCT Glucose (07/13/2017 8:07 AM EST) athologist Signature POC Glucose 96 65 - 199 [facility] mg/dL [facility] Comment: Supplemental ranges: <140 mg/dL before meals <180 mg/dL all other times of the day Specimen Anatomical Collection Method Collection Time Receive d Time (Source) Location / / Volume Laterality Blood specimen 07/13/2017 8:07 AM 017 8:07 (specimen) EST AM EST Yuan Webber MD POINT OF CARE TEST ORDERABLE S Performing Organization Address City/State/[place] [address] (ABNORMAL) Prothrombin Time (07/13/2017 [...] Agency Comment Spec In Lab Makayla Wilson SOCIAL MEDIA STRATEGIST HEMATOLOGY ORDERABLES Performing Organization Address City/State/[place] [address] (ABNORMAL) Basic Metabolic Panel (non-fasting) (07/13/2017 4:26 AM EST) P athologist Signature Glucose Lvl 95 65 - 199 [facility] mg/dL [facility] Comment: Diabetes: >=200 mg/dL [...] [facility] Estimated GFR 60 >=60 [facility] Comment: The reported eGFR should be multiplied b y 1.2 for patients. The MDRD is not an appropriate measure o f renal function for patients with body mass extremes or in patients with acute kidney failure. http://[employer]/DHnkdep http://[employer]/DHMCnkf Specimen Anatomical Collection Method Collection Time Receive d Time (Source) Location / / Volume Laterality Blood specimen 07/13/2017 4:26 AM 017 4:46 (specimen) EST AM EST Resulting Agency Comment Spec In Lab Makayla Wilson APRN CHEMISTRY ORDERABLES Performing Organization Address City/State/ZIP Code Phon e Number [address] POCT Glucose (07/13/2017 3:52 AM EST) athologist Signature POC Glucose 93 65 - 199 [place] mg/dL [facility] Comment: Supplemental [...] Address City/State/ZIP Code Phon e Number [address] POCT Glucose (07/13/2017 12:21 AM EST) athologist Signature POC Glucose 80 65 - 199 [place] mg/dL [facility] Comment: Supplemental [...] City/[facility]/ZIP Code Phon e Number [address] POCT Glucose (07/12/2017 8:22 PM EST) athologist Signature POC Glucose 119 65 - 199 [place] mg/dL [facility] Comment: Supplemental ranges: <140 mg/dL before meals <180 mg/dL all other times of the day Specimen Anatomical Collection Method Collection Time Receive d Time (Source) Location / / Volume Laterality Blood specimen 07/12/2017 8:22 PM 017 8:22 (specimen) EST PM EST Yuan Webber MD POINT OF CARE TEST ORDERABLE S Performing Organization Address City/State/[place] [address] POCT Glucose (07/12/2017 4:02 PM EST) athologist Signature POC Glucose 114 65 - 199 [place] mg/dL [facility] Comment: Supplemental ranges: <140 mg/dL before meals <180 mg/dL all other times of the day Specimen Anatomical Collection Method Collection Time Receive d Time (Source) Location / / Volume Laterality Blood specimen 07/12/2017 4:02 PM 017 4:02 (specimen) EST PM EST Yuan Webber MD POINT OF CARE TEST ORDERABLE S Performing Organization Address City/State/[place] [address] POCT Glucose (07/12/2017 11:28 AM EST) athologist Signature POC Glucose 164 65 - 199 [place] mg/dL [facility] Comment: Supplemental ranges: <140 mg/dL before meals <180 mg/dL all other times of the day Specimen Anatomical Collection Method Collection Time Receive d Time (Source) Location / / Volume Laterality Blood specimen 07/12/2017 11:28 7 (specimen) AM EST 11:28 AM EST Yuan Webber MD POINT OF CARE TEST ORDERABLE S Performing Organization Address City/State/[place] [address] POCT Glucose (07/12/2017 7:34 AM EST) athologist Signature POC Glucose 109 65 - 199 [place] mg/dL [facility] Comment: Supplemental ranges: <140 mg/dL before meals <180 mg/dL all other times of the day Specimen Anatomical Collection Method Collection Time Receive d Time (Source) Location / / Volume Laterality Blood specimen 07/12/2017 7:34 AM 017 7:34 (specimen) EST AM EST Yuan Webber MD POINT OF CARE TEST ORDERABLE S Performing Organization Address City/State/[place] [address] (ABNORMAL) Basic Metabolic Panel (non-fasting) (07/12/2017 4:11 AM EST) athologist Signature Glucose Lvl 92 65 - 199 [facility] mg/dL [facility] Comment: Diabetes: >=200 mg/dL [...] or in patients with acute kidney failure. http://[employer]/DHnkdep http://[employer]/DHnkf Specimen Anatomical Collection Method Collection Time Receive d Time (Source) Location / / Volume Laterality Blood specimen 07/12/2017 4:11 AM 017 8:57 (specimen) EST AM EST Resulting Agency Comment Spec In Lab [facility] ORDERABLES Performing Organization Address [facility] [place] [address] (ABNORMAL) Prothrombin Time (07/12/2017 [...] Resulting Agency Comment Spec In Lab Makayla [facility] HEMATOLOGY ORDERABLES Performing Organization Address City/[facility] [place] [address] Potassium (07/12/2017 4:11 AM EST) athologist Signature Potassium 3.8 3.5 - 5.0 [facility] mmol/L [facility] Comment: Please note: ??Patients [...] Address City/State/ZIP Code Phon e Number [address] POCT Glucose (07/12/2017 4:10 AM EST) athologist Signature POC Glucose 90 65 - 199 [facility] mg/dL [facility] Comment: Supplemental [...] City/[facility]/ZIP Code Phon e Number [address] POCT Glucose (07/11/2017 11:57 PM EST) athologist Signature POC Glucose 98 65 - 199 [facility] mg/dL [facility] Comment: Supplemental [...] City/[facility]/ZIP [place] [address] POCT Glucose (07/11/2017 8:32 PM EST) athologist Signature POC Glucose 146 65 - 199 [facility] mg/dL [facility] Comment: Supplemental [...] City/State/ZIP Code Phon e Number [facility] [id number] [facility] [address] XR Chest PA & [...] e xtubated, left chest tube removed, and [place]-Suzi catheter removed since the study. Atelectasis at [...] e xtubated, left chest tube removed, and [place]-Suzi catheter removed since the study. Atelectasis at [...] (H) 65 - 199 [place] mg/dL [facility] Comment: Supplemental [...] Address City/State/ZIP Code Phon e Number [address] POCT Glucose (07/11/2017 11:55 AM EST) athologist Signature POC Glucose 176 65 - 199 [place] mg/dL [facility] Comment: Supplemental [...] Address City/State/ZIP Code Phon e Number [address] POCT Glucose (07/11/2017 7:53 AM EST) athologist Signature POC Glucose 189 65 - 199 [place] mg/dL [facility] Comment: Supplemental [...] Address City/State/ZIP Code Phon e Number [address] POCT Glucose (07/11/2017 4:22 AM EST) athologist Signature POC Glucose 151 65 - 199 [place] mg/dL [facility] Comment: Supplemental [...] City/[facility]/[place] [address] Potassium (07/11/2017 2:20 AM EST) P athologist Signature Potassium 4.5 3.5 - 5.0 [facility] mmol/L [facility] Comment: Please note: ??Patients [...] Webber MD CHEMISTRY ORDERABLES Performing Organization Address City/[facility]/[place] [address] POCT Glucose (07/11/2017 12:17 AM EST) athologist Signature POC Glucose 162 65 - 199 [facility] mg/dL [facility] Comment: Supplemental [...] City/[facility]/[place] [address] POCT Glucose (07/10/2017 8:47 PM EST) athologist Signature POC Glucose 191 65 - 199 [place] mg/dL [facility] Comment: Supplemental [...] Address City/State/ZIP Code Phon e Number [address] POCT Glucose (07/10/2017 4:06 PM EST) athologist Signature POC Glucose 131 65 - 199 [facility] mg/dL [facility] Comment: Supplemental [...] Address City/State/ZIP Code Phon e Number [address] POCT Glucose (07/10/2017 3:08 PM EST) athologist Signature POC Glucose 151 65 - 199 [facility] mg/dL [facility] Comment: Supplemental [...] Address City/State/ZIP Code Phon e Number [address] POCT Glucose (07/10/2017 2:25 PM EST) P athologist Signature POC Glucose 146 65 - 199 [place] mg/dL [facility] Comment: Supplemental [...] Address City/State/ZIP Code Phon e Number [address] POCT Glucose (07/10/2017 1:23 PM EST) athologist Signature POC Glucose 166 65 - 199 [place] mg/dL [facility] Comment: Supplemental ranges: <140 mg/dL before meals <180 mg/dL all other times of the day Specimen Anatomical Collection Method Collection Time Receive d Time (Source) Location / / Volume Laterality Blood specimen 07/10/2017 1:23 PM 017 1:23 (specimen) EST PM EST Yuan Webber MD POINT OF CARE TEST ORDERABLE S Performing Organization Address City/State/[place] [address] POCT Glucose (07/10/2017 11:52 AM EST) athologist Signature POC Glucose 157 65 - 199 [place] mg/dL [facility] Comment: Supplemental [...] Address City/State/ZIP Code Phon e Number [address] POCT Glucose (07/10/2017 11:01 AM EST) athologist Signature POC Glucose 158 65 - 199 [place] mg/dL [facility] Comment: Supplemental ranges: <140 mg/dL before meals <180 mg/dL all other times of the day Specimen Anatomical Collection Method Collection Time Receive d Time (Source) Location / / Volume Laterality Blood specimen 07/10/2017 11:01 7 (specimen) AM EST 11:01 AM EST Yuan Webber MD POINT OF CARE TEST ORDERABLE S Performing Organization Address City/State/[place] [address] POCT Glucose (07/10/2017 9:54 AM EST) P athologist Signature POC Glucose 160 65 - 199 [place] mg/dL [facility] Comment: Supplemental ranges: <140 mg/dL before meals <180 mg/dL all other times of the day Specimen Anatomical Collection Method Collection Time Receive d Time (Source) Location / / Volume Laterality Blood specimen 07/10/2017 9:54 AM 017 9:54 (specimen) EST AM EST Yuan Webber MD POINT OF CARE TEST ORDERABLE S Performing Organization Address City/State/Z[place] [address] POCT Glucose (07/10/2017 8:58 AM EST) P athologist Signature POC Glucose 183 65 - 199 [place] mg/dL [facility] Comment: Supplemental ranges: <140 mg/dL before meals <180 mg/dL all other times of the day Specimen Anatomical Collection Method Collection Time Receive d Time (Source) Location / / Volume Laterality Blood specimen 07/10/2017 8:58 AM 017 8:58 (specimen) EST AM EST Yuan Webber MD POINT OF CARE TEST ORDERABLE S Performing Organization Address City/State/Z[place] [address] POCT Glucose (07/10/2017 8:01 AM EST) P athologist Signature POC Glucose 173 65 - 199 [place] mg/dL [facility] Comment: Supplemental [...] City/[facility]/ZIP Code Phon e Number [address] POCT Glucose (07/10/2017 7:05 AM EST) athologist Signature POC Glucose 166 65 - 199 [facility] mg/dL [facility] Comment: Supplemental [...] City/[facility]/ZIP Code Phon e Number [address] POCT Glucose (07/10/2017 6:00 AM EST) athologist Signature POC Glucose 162 65 - 199 [facility] mg/dL [facility] Comment: Supplemental [...] Address City/State/ZIP Code Phon e Number [address] (ABNORMAL) Differential, Automated (07/10/2017 4:28 AM EST) [facility] gist Method Time Signature Neutrophils % 87.9 % [facility] LABORATORY Neutr Abs (ANC) 10.70 (H) 1.70 - [facility] 6.10 [facility] x10(3)/[facility] L LABORATORY Lymphocytes % 3.9 % [facility] LABOR[facility]ORY Lymphocytes Abs 0.5 (L) 0.9 - 3.2 [facility] x10(3)/[facility] LABORATORY Monocytes % 7.0 % [facility] LABORATORY Monocyte Abs 0.8 0.3 - 0.9 [facility] x10(3)/[facility] LABORATORY Eosinophils % 0.3 % [facility]ORY Eosinophils Abs 0.0 0.0 - 0.4 [facility] x10(3)/[facility] LABORATORY Basophils % 0.2 % [facility] LAB[facility]ORY Basophils Abs 0.0 0.0 - 0.1 [facility] x10(3)/[facility] LABORATORY Immature Gran % 0.70 [...] Organization Address City/State/[place] [address] (ABNORMAL) Hemogram (07/10/2017 4:28 AM EST) Analysis Performed At Patho logist Time Signature WBC 12.2 (H) 4.0 - 9.5 [facility] x10(3)/[facility] LABORATORY RBC 3.31 (L) 4.58 - [facility] 5.54 [facility] x10(6)/[facility] LABORATORY Hemoglobin 9.8 (L) 13.7 - [place] 16.5 gm/dL [facility] Hematocrit 30.0 (L) 40.5 - [place] DAV[place] 48.5 % [facility] MCV 90.6 82.9 - [place] 93.1 [facility] LABORATORY MCH 29.6 27.5 - [place] 32.1 pg [facility] MCHC 32.7 32.0 - [place] 35.7 gm/dL [facility] Platelets 135 (L) 145 - 357 [facility] x10(3)/[facility] LABORATORY RDWSD 50.8 (H) 36.0 - [place] 45.0 [facility] LABORATORY RDWCV 15.4 (H) 11.4 [facility] 13.8 % [facility] MPV 10.0 7.6 - 12.9 [facility] LABORATORY nRBC % Auto 0.0 % [facility] LABORATORY nRBC Abs Auto 0.000 0.000 - [place] 0.000 [facility] x10(3)/[facility] LABORATORY Specimen Anatomical Collection Method Collection Time Receive d Time (Source) Location / / Volume Laterality Blood specimen 07/10/2017 4:28 AM 017 4:36 (specimen) EST AM EST Resulting Agency Comment Spec In Lab Yuan Webber MD HEMATOLOGY ORDERABLES Performing Organization Address City/State/[place] [address] (ABNORMAL) Basic Metabolic Panel (non-fasting) (07/10/2017 4:28 AM EST) P athologist Signature Glucose Lvl 178 65 - 199 [facility] mg/dL [facility] Comment: Diabetes: >=200 mg/dL [...] [facility] Estimated GFR 60 >=60 [facility]ORY Comment: The reported eGFR should be multiplied b y 1.2 for patients. The MDRD is not an appropriate measure o f renal function for patients with body mass extremes or in patients with acute kidney failure. http://[employer]/DHnkdep http://[employer]/DHMCnkf Specimen Anatomical Collection Method Collection Time Receive d Time (Source) Location / / Volume Laterality Blood specimen 07/10/2017 4:28 AM 017 4:36 (specimen) EST AM EST Resulting Agency Comment Spec In Lab Yuan Webber MD CHEMISTRY ORDERABLES Performing Organization Address City/State/ZIP Code Phon e Number [address] POCT Glucose (07/10/2017 4:26 AM EST) athologist Signature POC Glucose 176 65 - 199 [facility] mg/dL [facility]ORY Comment: Supplemental ranges: <140 mg/dL before meals <180 mg/dL all other times of the day Specimen Anatomical Collection Method Collection Time Receive d Time (Source) Location / / Volume Laterality Blood specimen 07/10/2017 4:26 AM 017 4:26 (specimen) EST AM EST Yuan Webber MD POINT OF CARE TEST ORDERABLE S Performing Organization Address City/State/[place] [address] (ABNORMAL) POCT Glucose (07/10/2017 3:06 AM EST) athologist Signature POC Glucose 204 (H) 65 - 199 [facility] mg/dL [facility] Comment: Supplemental ranges: <140 mg/dL before meals <180 mg/dL all other times of the day Specimen Anatomical Collection Method Collection Time Receive d Time (Source) Location / / Volume Laterality Blood specimen 07/10/2017 3:06 AM 017 3:06 (specimen) EST AM EST Yuan Webber MD POINT OF CARE TEST ORDERABLE S Performing Organization Address City/State/[place] [address] (ABNORMAL) POCT Glucose (07/10/2017 2:10 AM EST) athologist Signature POC Glucose 203 (H) 65 - 199 [facility] mg/dL [facility] Comment: Supplemental ranges: <140 mg/dL before meals <180 mg/dL all other times of the day Specimen Anatomical Collection Method Collection Time Receive d Time (Source) Location / / Volume Laterality Blood specimen 07/10/2017 2:10 AM 017 2:10 (specimen) EST AM EST Yuan Webber MD POINT OF CARE TEST ORDERABLE S Performing Organization Address City/State/[place] [address] POCT Glucose (07/10/2017 1:09 AM EST) athologist Signature POC Glucose 196 65 - 199 [facility] mg/dL [facility] Comment: Supplemental ranges: <140 mg/dL before meals <180 mg/dL all other times of the day Specimen Anatomical Collection Method Collection Time Receive d Time (Source) Location / / Volume Laterality Blood specimen 07/10/2017 1:09 AM 017 1:09 (specimen) EST AM EST Yuan Webber MD POINT OF CARE TEST ORDERABLE S Performing Organization Address City/State/Z[place] [address] POCT Glucose (07/10/2017 12:10 AM EST) athologist Signature POC Glucose 173 65 - 199 [place] mg/dL [facility] Comment: Supplemental [...] Address City/State/ZIP Code Phon e Number [address] POCT Glucose (07/09/2017 11:01 PM EST) athologist Signature POC Glucose 140 65 - 199 [place] mg/dL [facility] Comment: Supplemental [...] Address City/State/ZIP Code Phon e Number [address] POCT Glucose (07/09/2017 10:05 PM EST) athologist Signature POC Glucose 144 65 - 199 [place] mg/dL [facility] Comment: Supplemental [...] Address City/State/ZIP Code Phon e Number [address] POCT Glucose (07/09/2017 9:31 PM EST) athologist Signature POC Glucose 121 65 - 199 [place] mg/dL [facility] Comment: Supplemental ranges: <140 mg/dL before meals <180 mg/dL all other times of the day Specimen Anatomical Collection Method Collection Time Receive d Time (Source) Location / / Volume Laterality Blood specimen 07/09/2017 9:31 PM 017 9:31 (specimen) EST PM EST Yuan Webber MD POINT OF CARE TEST ORDERABLE S Performing Organization Address City/State/Z[place] [address] POCT Glucose (07/09/2017 9:03 PM EST) athologist Signature POC Glucose 98 65 - 199 [place] [facility] mg/dL [facility] Comment: Supplemental ranges: <140 mg/dL before meals <180 mg/dL all other times of the day Specimen Anatomical Collection Method Collection Time Receive d Time (Source) Location / / Volume Laterality Blood specimen 07/09/2017 9:03 PM 017 9:03 (specimen) EST PM EST Yuan Webber MD POINT OF CARE TEST ORDERABLE S Performing Organization Address City/State/Z[place] [address] POCT Glucose (07/09/2017 8:09 PM EST) athologist Signature POC Glucose 117 65 - 199 [place] mg/dL [facility] Comment: Supplemental ranges: <140 mg/dL before meals <180 mg/dL all other times of the day Specimen Anatomical Collection Method Collection Time Receive d Time (Source) Location / / Volume Laterality Blood specimen 07/09/2017 8:09 PM 017 8:09 (specimen) EST PM EST Yuan Webber MD POINT OF CARE TEST ORDERABLE S Performing Organization Address City/State/Z[place] [address] POCT Glucose (07/09/2017 5:40 PM EST) athologist Signature POC Glucose 155 65 - 199 [place] mg/dL [facility] Comment: Supplemental [...] Address City/State/ZIP Code Phon e Number [address] POCT Glucose (07/09/2017 4:24 PM EST) athologist Signature POC Glucose 164 65 - 199 [place] mg/dL [facility] Comment: Supplemental [...] Address City/State/ZIP Code Phon e Number [address] POCT Glucose (07/09/2017 3:19 PM EST) athologist Signature POC Glucose 166 65 - 199 [place] mg/dL [facility] Comment: Supplemental ranges: <140 mg/dL before meals <180 mg/dL all other times of the day Specimen Anatomical Collection Method Collection Time Receive d Time (Source) Location / / Volume Laterality Blood specimen 07/09/2017 3:19 PM 017 3:19 (specimen) EST PM EST Yuan Webber MD POINT OF CARE TEST ORDERABLE S Performing Organization Address City/State/ZIP [place] [address] POCT Glucose (07/09/2017 2:26 PM EST) athologist Signature POC Glucose 179 65 - 199 [facility] mg/dL [facility] Comment: Supplemental ranges: <140 mg/dL before meals <180 mg/dL all other times of the day Specimen Anatomical Collection Method Collection Time Receive d Time (Source) Location / / Volume Laterality Blood specimen 07/09/2017 2:26 PM 017 2:26 (specimen) EST PM EST Yuan Webber MD POINT OF CARE TEST ORDERABLE S Performing Organization Address City/State/ZIP [place] [address] (ABNORMAL) POCT Glucose (07/09/2017 1:29 PM EST) athologist Signature POC Glucose 210 (H) 65 - 199 [place] mg/dL [facility] Comment: Supplemental ranges: <140 mg/dL before meals <180 mg/dL all other times of the day Specimen Anatomical Collection Method Collection Time Receive d Time (Source) Location / / Volume Laterality Blood specimen 07/09/2017 1:29 PM 017 1:29 (specimen) EST PM EST Yuan Webber MD POINT OF CARE TEST ORDERABLE S Performing Organization Address City/State/ZIP [place] [address] POCT Glucose (07/09/2017 12:20 PM EST) athologist Signature POC Glucose 172 65 - 199 [place] mg/dL [facility] Comment: Supplemental ranges: <140 mg/dL before meals <180 mg/dL all other times of the day Specimen Anatomical Collection Method Collection Time Receive d Time (Source) Location / / Volume Laterality Blood specimen 07/09/2017 12:20 7 (specimen) PM EST 12:20 PM EST Yuan Webber MD POINT OF CARE TEST ORDERABLE S Performing Organization Address City/State/Z[place] [address] POCT Glucose (07/09/2017 11:24 AM EST) athologist Signature POC Glucose 156 65 - 199 [place] [facility] mg/dL [facility] Comment: Supplemental [...] Address City/State/ZIP Code Phon e Number [address] POCT Glucose (07/09/2017 11:11 AM EST) athologist Signature POC Glucose 172 65 - 199 [place] mg/dL [facility] Comment: Supplemental ranges: <140 mg/dL before meals <180 mg/dL all other times of the day Specimen Anatomical Collection Method Collection Time Receive d Time (Source) Location / / Volume Laterality Blood specimen 07/09/2017 11:11 7 (specimen) AM EST 11:11 AM EST Yuan Webber MD POINT OF CARE TEST ORDERABLE S Performing Organization Address City/State/Z[place] [address] POCT Glucose (07/09/2017 10:08 AM EST) athologist Signature POC Glucose 176 65 - 199 [facility] mg/dL [facility] Comment: Supplemental ranges: <140 mg/dL before meals <180 mg/dL all other times of the day Specimen Anatomical Collection Method Collection Time Receive d Time (Source) Location / / Volume Laterality Blood specimen 07/09/2017 10:08 7 (specimen) AM EST 10:08 AM EST Yuan Webber MD POINT OF CARE TEST ORDERABLE S Performing Organization Address City/State/ZIP [place] [address] POCT Glucose (07/09/2017 8:02 AM EST) athologist Signature POC Glucose 178 65 - 199 [facility] mg/dL [facility] Comment: Supplemental ranges: <140 mg/dL before meals <180 mg/dL all other times of the day Specimen Anatomical Collection Method Collection Time Receive d Time (Source) Location / / Volume Laterality Blood specimen 07/09/2017 8:02 AM 017 8:02 (specimen) EST AM EST Yuan Webber MD POINT OF CARE TEST ORDERABLE S Performing Organization Address City/State/[place] [address] (ABNORMAL) BLOOD GAS 2 ARTERIAL (07/09/2017 5:37 AM EST) Analysis Performed At Patho logist Time Signature pH Art 7.36 7.35 - [facility] 7.45 [facility] pCO2 Art 38 35 - 45 [facility] LABORATORY pO2 Art 79 (L) 85 - 104 [facility] LABORATORY HCO3 Art 20.9 20.0 - [facility] 26.0 [facility] mmol/[facility] LABORATORY BE Art -4.6 (L) -3.0 - 3.0 [facility] mmol/L [facility] Hgb Blood Gas 10.5 (L) 13.7 - [facility] 16.5 gm/dL [facility] O2HB Art 93.8 (L) 94.0 - [facility] 97.0 % [facility] COHB Art 0.3 % [facility] LABORATORY Comment: Nonsmokers: 0.5-1.5% COHB Smokers: Variable, but usually less than 10% Toxic: 20-30% COHB Lethal: Greater than 60% COHB METHB Art 0.6 <=1.5 % [facility] LABORATORY Na Whole Blood 141 135 [...] [facility] LABORATORY FIO2 Art 40 % [facility] LABORATORY PF Ratio Art 198 [facility] LABORATORY Specimen Anatomical Collection Method Collection Time Receive d Time (Source) Location / / Volume Laterality Blood specimen 07/09/2017 5:37 AM 017 5:37 (specimen) EST AM EST Yuan Webber MD CHEMISTRY ORDERABLES Performing Organization Address City/[facility]/ZIP Code Phon e Number [address] POCT Glucose (07/09/2017 3:27 AM EST) athologist Signature POC Glucose 192 65 - 199 [facility] mg/dL [facility] Comment: Supplemental [...] City/[facility]/ZIP [place] [address] (ABNORMAL) Basic Metabolic Panel (non-fasting) (07/09/2017 2:30 AM EST) athologist Signature Glucose Lvl 179 65 - 199 [facility] mg/dL [facility] Comment: Diabetes: >=200 mg/dL [...] or in patients with acute kidney failure. [email or web address]/DHnkdep [email or web address]/DHMCnkf Specimen Anatomical Collection Method Collection Time Receive d Time (Source) Location / / Volume Laterality Blood specimen Venous Draw / 07/09/2017 2:30 AM 2016 2:42 (specimen) Unknown EST AM EST Resulting Agency Comment Spec In Lab Yuan Webber MD CHEMISTRY ORDERABLES Performing Organization Address City/State/[facility] [place] [address] (ABNORMAL) Potassium (07/09/2017 2:30 AM EST) P athologist Signature Potassium 5.1 (H) 3.5 - 5.0 [facility] mmol/L [facility] Comment: Please note: ??Patients [...] Organization Address City/State/ZIP Code Phon e Number [place] [id number] (ABNORMAL) Hemogram (07/09/2017 2:30 AM EST) Analysis Performed At Patho logist Time Signature WBC 12.5 (H) 4.0 - 9.5 [facility] x10(3)/[facility] LABORATORY RBC 3.38 (L) 4.58 - [place] 5.54 [facility] x10(6)/[facility] LABORATORY Hemoglobin 10.1 (L) 13.7 - [facility] 16.5 gm/dL [facility] Hematocrit 30.3 (L) 40.5 - [facility] 48.5 % [facility] MCV 89.6 82.9 - [facility] 93.1 [facility] LABORATORY MCH 29.9 27.5 - [place] 32.1 pg [facility] MCHC 33.3 32.0 - [place] 35.7 gm/dL [facility] Platelets 127 (L) 145 - 357 [facility] x10(3)/[facility] LABORATORY RDWSD 49.3 (H) 36.0 - [place] 45.0 [facility] LABORATORY RDWCV 15.2 (H) 11.4 - [facility] RYAN 13.8 % [facility]ORY MPV 9.9 7.6 - 12.9 [facility] LABORATORY nRBC % Auto 0.0 % [facility] LABORATORY nRBC Abs Auto 0.000 0.000 - [facility] RYAN 0.000 [facility] x10(3)/[facility] LABORATORY Specimen Anatomical Collection Method Collection Time Receive d Time (Source) Location / / Volume Laterality Blood specimen 07/09/2017 2:30 AM 017 2:41 (specimen) EST AM EST Resulting Agency Comment Spec In Lab Yuan Webber MD HEMATOLOGY ORDERABLES Performing Organization Address City/State/[place] [address] [facility] [address] POCT Glucose (07/09/2017 2:10 AM EST) P athologist Signature POC Glucose 169 65 - 199 [facility] mg/dL [facility] Comment: Supplemental [...] City/[facility]/ZIP [place] [address] POCT Glucose (07/09/2017 1:01 AM EST) P athologist Signature POC Glucose 173 65 - 199 [facility] mg/dL [facility] Comment: Supplemental ranges: <140 mg/dL before meals <180 mg/dL all other times of the day Specimen Anatomical Collection Method Collection Time Receive d Time (Source) Location / / Volume Laterality Blood specimen 07/09/2017 1:01 AM 017 1:01 (specimen) EST AM EST Yuan Webber MD POINT OF CARE TEST ORDERABLE S Performing Organization Address City/State/ZIP [place] [address] Blood culture (07/09/2017 12:40 AM EST) Patholo gist Method Time Signature Blood Culture No growth [place] at 5 days. [facility] LABOR[facility]ORY Specimen Anatomical Collection Method Collection Time Receive d Time (Source) Location / / Volume Laterality Blood specimen STRUCTURE OF RIGHT 07/09/2017 12:40 3:58 (specimen) UPPER LIMB / AM EST AM EST Unknown Resulting Agency Comment Spec In Lab Yuan Webber MD MICROBIOLOGY - BLOOD ORDERAB LES Performing Organization Address City/State/Z[place] [address] Blood culture (07/09/2017 12:30 AM EST) Patholo gist Method Time Signature Blood Culture No growth [facility] ZHAORYAN at 5 days. [facility] Specimen Anatomical Collection Method Collection Time Receive d Time (Source) Location / / Volume Laterality Blood specimen STRUCTURE OF LEFT 07/09/2017 12:30 1211/2016 3:59 (specimen) UPPER LIMB / AM EST AM EST Unknown Resulting Agency Comment Spec In Lab Yuan Webber MD MICROBIOLOGY - BLOOD ORDERAB LES Performing Organization Address City/[facility]/[place] [address] (ABNORMAL) Urinalysis Microscopic Exam (07/09/2017 12:05 AM EST) Analysis Performed At Patho logist Time Signature RBC UA 32 (H) 0 - 3 /HPF [facility] LABORATORY WBC UA 5 (H) 0 - 3 /HPF [facility] LABORATORY Squam Epith UA <1 <=4 /HPF [facility] LABORATORY Hyaline Cast 17 (H) 0 - 2 /LPF [facility] LABORATORY Gran Cast UA 1 (H) <=0 /LPF [facility] LABORATORY Uric Ac Bianca Rare (A) None /HPF [facility] LABOR[facility]ORY Specimen (Source) Anatomical Collection Method Collection Time Re ceived Time Location / / Volume Laterality Urine specimen 07/09/2017 12:05 7 obtained via AM EST 12:39 AM EST indwelling urinary catheter (specimen) Resulting Agency Comment Spec In Lab Yuan Webber MD URINE ORDERABLES Performing Organization Address City/[facility]/ZIP [place] [address] (ABNORMAL) Urinalysis with reflex Culture (07/09/2017 12:05 AM EST) Patholo gist Method Time Signature Glucose UA Negative Negative [facility] mg/dL [facility] Protein UA 30 (A) Negative [facility] mg/dL [facility] Bilirubin UA Negative Negative [facility] mg/dL [facility] Comment: Clinical correlation required for positi ve Urine Bilirubin results as false positive may occur with some drugs and d rug related products. If a false positive is suspected a serum total bili yeager should be considered if clinically indicated. Urobilinogen UA Normal Normal mg/dL [facility] LABORATORY pH UA 5.0 5.0 - 8.0 [facility] LABORATORY Blood UA Moderate (A) Negative mg/dL [facility] LABORATORY Ketones UA Negative Negative mg/dL [facility] LABORATORY Nitrite UA Negative Negative [facility] LABORATORY Leukocytes UA Negative Negative [facility] LABORATORY Appearance UA Hazy (A) Clear [facility] LABORATORY Spec Norman UA 1.025 1.002 - 1.030 [facility] LABORATORY Color UA Yellow Yellow [facility] LABORATORY Culture Reflexed No [facility] LABORATORY Specimen (Source) Anatomical Collection Method Collection Time Re ceived Time Location / / Volume Laterality Urine specimen 07/09/2017 12:05 7 obtained via AM EST 12:39 AM EST indwelling urinary catheter (specimen) Resulting Agency Comment Spec In Lab Yuan Webber MD URINE ORDERABLES Performing Organization Address City/[facility]/ZIP Code Phon e Number [address] POCT Glucose (07/08/2017 11:01 PM EST) athologist Signature POC Glucose 191 65 - 199 [facility] mg/dL [facility] Comment: Supplemental [...] Address City/State/ZIP Code Phon e Number [address] POCT Glucose (07/08/2017 10:04 PM EST) athologist Signature POC Glucose 198 65 - [address] [address] mg/dL [facility] Comment: Supplemental ranges: <140 mg/dL before meals <180 mg/dL all other times of the day Specimen Anatomical Collection Method Collection Time Receive d Time (Source) Location / / Volume Laterality Blood specimen 07/08/2017 10:04 7 (specimen) PM EST 10:04 PM EST Yuan Webber MD POINT OF CARE TEST ORDERABLE S Performing Organization Address City/State/[place] [address] Prepare Albumin 5% in [...] [facility] ORDERABLES Performing Organization Address City/[facility]/Z[place] [address] POCT Glucose (07/08/2017 8:28 PM EST) P athologist Signature POC Glucose 195 65 - 199 [facility] mg/dL [facility] Comment: Supplemental ranges: <140 mg/dL before meals <180 mg/dL all other times of the day Specimen Anatomical Collection Method Collection Time Receive d Time (Source) Location / / Volume Laterality Blood specimen 07/08/2017 8:28 PM 017 8:28 (specimen) EST PM EST Yuan Webber MD POINT OF CARE TEST ORDERABLE S Performing Organization Address City/State/Z[place] [address] (ABNORMAL) POCT Glucose (07/08/2017 7:13 PM EST) P athologist Signature POC Glucose 220 (H) 65 - 199 [facility] mg/dL [facility] Comment: Supplemental ranges: <140 mg/dL before meals <180 mg/dL all other times of the day Specimen Anatomical Collection Method Collection Time Receive d Time (Source) Location / / Volume Laterality Blood specimen 07/08/2017 7:13 PM 017 7:13 (specimen) EST PM EST Yuan Webber MD POINT OF CARE TEST ORDERABLE S Performing Organization Address City/State/[place] [address] POCT Glucose (07/08/2017 5:04 PM EST) P athologist Signature POC Glucose 147 65 - 199 [facility] mg/dL [facility] Comment: Supplemental ranges: <140 mg/dL before meals <180 mg/dL all other times of the day Specimen Anatomical Collection Method Collection Time Receive d Time (Source) Location / / Volume Laterality Blood specimen 07/08/2017 5:04 PM 017 5:04 (specimen) EST PM EST Yuan Webber MD POINT OF CARE TEST ORDERABLE S Performing Organization Address City/State/Z[place] [address] (ABNORMAL) BLOOD GAS 2 ARTERIAL (07/08/2017 4:13 PM EST) Analysis Performed At Patho logist Time Signature pH Art 7.38 7.35 - [facility] 7.45 [facility]ORATORY pCO2 Art 36 35 - 45 [facility] LABORATORY pO2 Art 91 85 - 104 [facility] LABORATORY HCO3 Art 20.9 20.0 - [facility] 26.0 [facility] mmol/L [facility] LABORATORY BE Art -4.2 (L) -3.0 - 3.0 [facility] mmol/L [facility]OR[facility]ORY Hgb Blood Gas 11.7 (L) 13.7 - [facility] 16.5 gm/dL [facility] O2HB Art 95.1 94.0 - [facility] 97.0 % [facility] COHB Art 0.6 % [facility] LABORATORY Comment: Nonsmokers: 0.5-1.5% COHB Smokers: Variable, but usually less than 10% Toxic: 20-30% COHB Lethal: Greater than 60% COHB METHB Art 0.6 <=1.5 % [facility] LABORATORY Na Whole Blood 139 135 [...] [facility] LABORATORY FIO2 Art 40 % [facility] LABORATORY PF Ratio Art 228 [facility] LABORATORY Specimen Anatomical Collection Method Collection Time Receive d Time (Source) Location / / Volume Laterality Blood specimen 07/08/2017 4:13 PM 017 4:13 (specimen) EST PM EST Yuan Webber MD CHEMISTRY ORDERABLES Performing Organization Address City/[facility]/[place]IP [facility] Phon e Number [address] POCT Glucose (07/08/2017 4:01 PM EST) athologist Signature POC Glucose 148 65 - 199 [facility] mg/dL [facility] Comment: Supplemental ranges: <140 mg/dL before meals <180 mg/dL all other times of the day Specimen Anatomical Collection Method Collection Time Receive d Time (Source) Location / / Volume Laterality Blood specimen 07/08/2017 4:01 PM 017 4:01 (specimen) EST PM EST Yuan Webber MD POINT OF CARE TEST ORDERABLE S Performing Organization Address City/[facility] Code Phon e Number [address] POCT Glucose (07/08/2017 3:21 PM EST) athologist Signature POC Glucose 118 65 - 199 [facility] mg/dL [facility] Comment: Supplemental ranges: <140 mg/dL before meals <180 mg/dL all other times of the day Specimen Anatomical Collection Method Collection Time Receive d Time (Source) Location / / Volume Laterality Blood specimen 07/08/2017 3:21 PM 017 3:21 (specimen) EST PM EST Yuan Webber MD POINT OF CARE TEST ORDERABLE S Performing Organization Address City/State/[place] [address] POCT Glucose (07/08/2017 2:01 PM EST) athologist Signature POC Glucose 129 65 - 199 [place] RYAN mg/dL [facility] Comment: Supplemental ranges: <140 mg/dL before meals <180 mg/dL all other times of the day Specimen Anatomical Collection Method Collection Time Receive d Time (Source) Location / / Volume Laterality Blood specimen 07/08/2017 2:01 PM 017 2:01 (specimen) EST PM EST Yuan Webber MD POINT OF CARE TEST ORDERABLE S Performing Organization Address City/State/[place] [address] POCT Glucose (07/08/2017 11:53 AM EST) athologist Signature POC Glucose 156 65 - 199 K[place]ALINA ZHAORYAN mg/dL [facility] Comment: Supplemental [...] Address City/State/ZIP Code Phon e Number [address] POCT Glucose (07/08/2017 11:04 AM EST) athologist Signature POC Glucose 181 65 - 199 [facility] RYAN mg/dL [facility] Comment: Supplemental [...] City/[facility]/ZIP [place] [address] (ABNORMAL) POCT Glucose (07/08/2017 9:24 AM EST) athologist Signature POC Glucose 203 (H) 65 - 199 [facility] mg/dL [facility] Comment: Supplemental [...] City/[facility]/[place] [address] APTT (07/08/2017 8:40 AM EST) athologist Signature PTT 33 25 - [address] [facility] Comment: The recommended therapeutic range for fu ll dose, unfractionated heparin at [facility] is 80 ? [...] Webber MD HEMATOLOGY ORDERABLES Performing Organization Address City/[facility]/[place] [address] (ABNORMAL) Prothrombin Time (07/08/2017 [...] EST Resulting Agency Comment Spec In Lab uYan Webber MD HEMATOLOGY ORDERABLES Performing Organization Address City/[facility]/[place] [address] (ABNORMAL) POCT Glucose (07/08/2017 7:38 AM EST) P athologist Signature POC Glucose 232 (H) 65 - [address] [facility] [address] [facility] mg[facility]dL [facility] Comment: Supplemental ranges: <140 mg/dL before meals <180 mg/dL all other times of the day Specimen Anatomical Collection Method Collection Time Receive d Time (Source) Location / / Volume Laterality Blood specimen 07/08/2017 7:38 AM 017 7:38 (specimen) EST AM EST Yuan Webber MD POINT OF CARE TEST ORDERABLE S Performing Organization Address City/State/[place] [address] (ABNORMAL) POCT Glucose (07/08/2017 7:07 AM EST) P athologist Signature POC Glucose 234 (H) 65 - [address] [facility] mg/dL [facility] Comment: Supplemental ranges: <140 mg/dL before meals <180 mg/dL all other times of the day Specimen Anatomical Collection Method Collection Time Receive d Time (Source) Location / / Volume Laterality Blood specimen 07/08/2017 7:07 AM 017 7:07 (specimen) EST AM EST Yuan Webber MD POINT OF CARE TEST ORDERABLE S Performing Organization Address City/State/[place] [address] (ABNORMAL) POCT Glucose (07/08/2017 6:04 AM EST) athologist Signature POC Glucose 225 (H) 65 - 199 [facility] RYAN mg/dL [facility] Comment: Supplemental [...] City/[facility]/[place] [address] (ABNORMAL) POCT Glucose (07/08/2017 5:31 AM EST) athologist Signature POC Glucose 216 (H) 65 - 199 [facility] mg/dL [facility] Comment: Supplemental ranges: <140 mg/dL before meals <180 mg/dL all other times of the day Specimen Anatomical Collection Method Collection Time Receive d Time (Source) Location / / Volume Laterality Blood specimen 07/08/2017 5:31 AM 017 5:31 (specimen) EST AM EST Yuan Webber MD POINT OF CARE TEST ORDERABLE S Performing Organization Address City/State/Z[place] [address] (ABNORMAL) POCT Glucose (07/08/2017 4:52 AM EST) athologist Signature POC Glucose 257 (H) 65 - 199 [facility] mg/dL [facility] Comment: Supplemental ranges: <140 mg/dL before meals <180 mg/dL all other times of the day Specimen Anatomical Collection Method Collection Time Receive d Time (Source) Location / / Volume Laterality Blood specimen 07/08/2017 4:52 AM 017 4:52 (specimen) EST AM EST Daphne Shahid MD POINT OF CARE TEST ORDERABLE S Performing Organization Address City/State/[place] [address] (ABNORMAL) BLOOD GAS 2 ARTERIAL (07/08/2017 4:04 AM EST) Analysis Performed At Patho logist Time Signature pH Art 7.30 (L) 7.35 - [facility] 7.45 [facility] pCO2 Art 41 35 - 45 [facility] mmHg [facility] pO2 Art 83 (L) 85 - 104 [facility] LABORATORY HCO3 Art 19.6 (L) 20.0 - [facility] 26.0 [facility] mmol/[facility] LABORATORY BE Art -6.8 (L) -3.0 - 3.0 [facility] mmol/L [facility] Hgb Blood Gas 12.2 (L) 13.7 - [facility] 16.5 gm/dL [facility] O2HB Art 93.5 (L) 94.0 - [facility] 97.0 % [facility] COHB Art 0.4 % [facility] Comment: Nonsmokers: 0.5-1.5% COHB Smokers: Variable, but usually less than 10% Toxic: 20-30% COHB Lethal: Greater than 60% COHB METHB Art 0.8 <=1.5 % [facility] LABORATORY [...] [facility] Comment: Noted by instrumentation fitter. FIO2 Art 40 % [facility]ORATORY PF Ratio Art 208 [facility] LABOR[facility]ORY Specimen Anatomical Collection Method Collection Time Receive d Time (Source) Location / / Volume Laterality Blood specimen 07/08/2017 4:04 AM 017 4:04 (specimen) EST AM EST Daphne Shahid MD CHEMISTRY ORDERABLES Performing Organization Address City/[facility]/ZIP Code Phon e Number [address] Scan, Peripheral Blood (07/08/2017 [...] Webber MD HEMATOLOGY ORDERABLES Performing Organization Address City/[facility]/ZIP Code Phon e Number [address] (ABNORMAL) Differential, Automated (07/08/2017 4:00 AM EST) Patholo gist Method Time Signature Neutrophils % 85.4 % [facility] LABORATORY Neutr Abs (ANC) 16.07 (H) 1.70 - [facility] 6.10 [facility] x10(3)/[facility] L LABORATORY Lymphocytes % 3.5 % [facility] LABORATORY Lymphocytes Abs 0.6 (L) 0.9 - 3.2 [facility] x10(3)/[facility] LABORATORY Monocytes % 10.4 % [facility] LABORATORY Monocyte Abs 2.0 (H) 0.3 - 0.9 [facility] x10(3)/[facility] LABORATORY Eosinophils % 0.0 % [facility] LABORATORY Eosinophils Abs 0.0 0.0 - 0.4 [facility] x10(3)/[facility] LABORATORY Basophils % 0.1 % [facility] LABORATORY Basophils Abs 0.0 0.0 - 0.1 [facility] x10(3)/[facility] LABORATORY Immature Gran % 0.60 [...] Organization Address City/State/ZIP Code Phon e Number [place] [id number] (ABNORMAL) Hemogram (07/08/2017 4:00 AM EST) Analysis Performed At Patho logist Time Signature WBC 18.8 (H) 4.0 - 9.5 [facility] x10(3)/[facility] LABORATORY RBC 4.00 (L) 4.58 - [facility] RYAN 5.54 [facility] x10(6)/[facility] LABORATORY Hemoglobin 11.9 (L) 13.7 - [facility] 16.5 gm/dL [facility] Hematocrit 35.9 (L) 40.5 - [facility] R[facility]AN 48.5 % [facility] MCV 89.8 82.9 - [facility] 93.1 fL [facility] MCH 29.8 27.5 - [place] R[place] 32.1 pg [facility] MCHC 33.1 32.0 - [facility] 35.7 gm/dL [facility] Platelets 232 145 - 357 [facility] x10(3)/[facility] LABORATORY RDWSD 47.6 (H) 36.0 - [facility] 45.0 [facility] LABORATORY RDWCV 14.5 (H) 11.4 - [facility] 13.8 % [facility] LABORATORY MPV 9.5 7.6 - 12.9 [facility] LABORATORY nRBC % Auto 0.0 % [facility] LABORATORY nRBC Abs Auto 0.000 0.000 - [facility] 0.000 [facility] x10(3)/[facility] LABORATORY Specimen Anatomical Collection Method Collection Time Receive d Time (Source) Location / / Volume Laterality Blood specimen 07/08/2017 4:00 AM 017 4:09 (specimen) EST AM EST Resulting Agency Comment Spec In Lab Yuan Webber MD HEMATOLOGY ORDERABLES Performing Organization Address City/[facility]/Z[place] [address] (ABNORMAL) Electrolytes panel (07/08/2017 4:00 AM EST) P athologist Signature Sodium 139 135 - 145 [facility] mmol/L [facility] Potassium 4.7 3.5 - 5.0 [facility] mmol/[facility] LABORATORY Comment: result rechecked-JLK Please note: [...] - 15 mmol/L [facility] LABORATORY Specimen Anatomical Collection Method Collection Time Receive d Time (Source) Location / / Volume Laterality Blood specimen 07/08/2017 4:00 AM 017 4:10 (specimen) EST AM EST Resulting Agency Comment Spec In Lab Yuan Webber MD CHEMISTRY ORDERABLES Performing Organization Address City/[facility]/[place]IP [facility] [place] [address] (ABNORMAL) Cardiac Enzymes (LEB/CGP) (07/08/2017 4:00 AM EST) athologist Signature Troponin-T 1.88 (H) 0.00 - [place] 0.00 ng/mL [facility] Comment: The 99th percentile [...] additional sample may be indicated. Reference: Third [place] Definition of Myocardial Infarction. Journal of the [place] [employer] 2012;60:1581-98 CK, Total 413 (H) 0 - 200 unit/L [facility] LABORATORY Comment: result rechecked-K Specimen Anatomical Collection Method Collection Time Receive d Time (Source) Location / / Volume Laterality Blood specimen 07/08/2017 4:00 AM 017 4:09 (specimen) EST AM EST Resulting Agency Comment Spec In Lab Yuan Webber MD CHEMISTRY ORDERABLES Performing Organization Address City/State/[place] [address] (ABNORMAL) Glucose, fasting (07/08/2017 4:00 AM EST) athologist Signature Glucose 287 (H) 65 - 99 [facility] Fasting mg/dL [facility] Comment: ?Fasting* Glucose Interpretive [...] Webber MD CHEMISTRY ORDERABLES Performing Organization Address City/[facility] [place] [address] (ABNORMAL) Creatinine (07/08/2017 4:00 AM EST) Analysis Performed At [facility] Time Signature Creatinine 1.55 (H) 0.80 - [facility] 1.50 mg/dL [facility] Estimated GFR 44 (L) >=60 [facility]ORY Comment: The reported eGFR should be multiplied b y 1.2 for patients. The MDRD is not an appropriate measure o f renal function for patients with body mass extremes or in patients with acute kidney failure. http://[employer]/DHnkdep http://[employer]/DHMCnkf Specimen Anatomical Collection Method Collection Time Receive d Time (Source) Location / / Volume Laterality Blood specimen 07/08/2017 4:00 AM 017 4:09 (specimen) EST AM EST Resulting Agency Comment Spec In Lab Yuan Webber MD CHEMISTRY ORDERABLES Performing Organization Address City/[facility]/[place] [address] BUN (07/08/2017 4:00 AM EST) athologist Signature BUN 16 10 - 20 [facility] mg/dL [facility] Specimen Anatomical Collection Method Collection Time Receive d Time (Source) Location / / Volume Laterality Blood specimen 07/08/2017 4:00 AM 017 4:09 (specimen) EST AM EST Resulting Agency Comment Spec In Lab Yuan Webber MD CHEMISTRY ORDERABLES Performing Organization Address City/State/Z[place] [address] (ABNORMAL) POCT Glucose (07/08/2017 3:00 AM EST) athologist Signature POC Glucose 273 (H) 65 - 199 [facility] mg/dL [facility] Comment: Supplemental [...] City/[facility]/Z[place] [address] (ABNORMAL) POCT Glucose (07/08/2017 1:57 AM EST) athologist Signature POC Glucose 288 (H) 65 - 199 [facility] mg/dL [facility] Comment: Supplemental ranges: <140 mg/dL before meals <180 mg/dL all other times of the day Specimen Anatomical Collection Method Collection Time Receive d Time (Source) Location / / Volume Laterality Blood specimen 07/08/2017 1:57 AM 017 1:57 (specimen) EST AM EST Daphne Shahid MD POINT OF CARE TEST ORDERABLE S Performing Organization Address City/State/[place] [address] (ABNORMAL) POCT Glucose (07/08/2017 1:01 AM EST) athologist Signature POC Glucose 315 (H) 65 - 199 [facility] mg/dL [facility] Comment: Supplemental ranges: <140 mg/dL before meals <180 mg/dL all other times of the day Specimen Anatomical Collection Method Collection Time Receive d Time (Source) Location / / Volume Laterality Blood specimen 07/08/2017 1:01 AM 017 1:01 (specimen) EST AM EST Daphne Shahid MD POINT OF CARE TEST ORDERABLE S Performing Organization Address City/State/[place] [address] (ABNORMAL) BLOOD GAS 2 ARTERIAL (07/08/2017 12:09 AM EST) athologist Signature pH Art 7.26 7.35 - [facility] (Critical) 7.45 [facility] Comment: Noted by instrumentation fitter. pCO2 Art 41 35 - 45 mmHg [...] [facility] LABORATORY COHB Art 0.2 % [facility] LABORATORY Comment: Nonsmokers: 0.5-1.5% COHB Smokers: Variable, but usually less than 10% Toxic: 20-30% COHB Lethal: Greater than 60% COHB METHB Art 0.6 <=1.5 % [facility] LABORATORY Na Whole Blood 141 135 [...] [facility] Comment: Noted by instrumentation fitter. FIO2 Art 40 % [facility] LABORATORY PF Ratio Art 240 [facility] LABORATORY Specimen Anatomical Collection Method Collection Time Receive d Time (Source) Location / / Volume Laterality Blood specimen Arterial Draw / 07/08/2017 12:09 2016 5:31 (specimen) Unknown AM EST AM EST Resulting Agency Comment Spec In Lab Samy Maldonado MD CHEMISTRY ORDERABLES Performing Organization Address City/State/[place] [address] (ABNORMAL) POCT Glucose (07/07/2017 10:56 PM EST) P athologist Signature POC Glucose 292 (H) 65 - 199 [facility] mg/dL [facility] Comment: Supplemental [...] City/[facility]/[place] [address] (ABNORMAL) BLOOD GAS 2 ARTERIAL (07/07/2017 10:04 PM EST) P athologist Signature pH Art 7.22 7.35 - [facility] (Critical) 7.45 [facility] Comment: Noted by instrumentation fitter. pCO2 Art 42 35 - 45 mmHg [...] MEDICAL CENTER LABORATORY COHB Art 0.7 % [facility] LAB[facility]ATORY Comment: Nonsmokers: 0.5-1.5% COHB Smokers: Variable, but usually less than 10% Toxic: 20-30% COHB Lethal: Greater than 60% COHB METHB Art 0.7 <=1.5 % [facility] LABORATORY Na Whole Blood 140 135 [...] [facility] Comment: Noted by instrumentation fitter. FIO2 Art 40 % [facility] LABORATORY PF Ratio Art 235 [facility] LABORATORY Specimen Anatomical Collection Method Collection Time Receive d Time (Source) Location / / Volume Laterality Blood specimen 07/07/2017 10:04 7 (specimen) PM EST 10:04 PM EST Daphne Shahid MD CHEMISTRY ORDERABLES Performing Organization Address City/[facility]/[place] [address] (ABNORMAL) Hemoglobin (07/07/2017 10:00 PM EST) athologist Signature Hemoglobin 12.8 (L) 13.7 - [facility] 16.5 gm/dL [facility] Specimen Anatomical Collection Method Collection Time Receive d Time (Source) Location / / Volume Laterality Blood specimen 07/07/2017 10:00 7 (specimen) PM EST 10:13 PM EST Resulting Agency Comment Spec In Lab Yuan Webber MD HEMATOLOGY ORDERABLES Performing Organization Address City/[facility] [place] [address] (ABNORMAL) Potassium (07/07/2017 10:00 PM EST) athologist Signature Potassium 3.4 (L) 3.5 - 5.0 [facility] mmol/L [facility] Comment: Please note: ??Patients [...] Webber MD CHEMISTRY ORDERABLES Performing Organization Address City/[facility]/[place]IP [facility] [address] (ABNORMAL) POCT Glucose (07/07/2017 8:49 PM EST) athologist Signature POC Glucose 241 (H) 65 - 199 [facility] mg/dL [facility] Comment: Supplemental [...] City/[facility]/[place] [address] Prepare Albumin 5% in [...] [facility] ORDERABLES Performing Organization Address [facility] [place] [address] EKG 12 Lead (07/07/2017 7:17 PM EST) Component Value Ref Range Test Analysis Performed Pathologis t Method Time At Signature Ventricular rate 75 BPM MUSE SYSTEM Atrial Rate 75 BPM MUSE SYSTEM P-R Interval 168 ms MUSE SYSTEM QRS Duration 104 ms MUSE SYSTEM Q-T Interval 462 ms MUSE SYSTEM QTC Calculated 515 ms MUSE SYSTEM (Bezet) Calculated P Gypsum 52 degrees MUSE SYSTEM Calculated R Gypsum -40 degrees MUSE SYSTEM Calculated T [place] 39 degrees MUSE SYSTEM INTERPRETATION Normal sinus [...] Webber MD ECG ORDERABLES Performing Organization Address City/[facility]/ZIP Code Phon e Number MUSE SYSTEM XR [...] Art 7.21 7.35 - [place] (Critical) [address] [place] [address] LABORATORY Comment: Noted by instrumentation fitter. pCO2 Art 50 (H) 35 - 45 mmHg [facility] LABORATORY pO2 Art 238 (H) 85 - 104 mmHg [facility] LABORATORY HCO3 Art 19.8 (L) 20.0 - 26.0 mmol/L [facility] LABORATORY BE Art -8.1 (L) -3.0 - 3.0 mmol/L [facility] LABORATORY Hgb Blood Gas 12.8 (L) 13.7 - 16.5 gm/dL [facility] LABORATORY O2HB Art 97.5 (H) 94.0 - 97.0 % [facility] LABORATORY COHB Art 0.5 % [facility] LABORATORY Comment: Nonsmokers: 0.5-1.5% COHB Smokers: Variable, but usually less than 10% Toxic: 20-30% COHB Lethal: Greater than 60% COHB METHB Art 0.7 <=1.5 % [facility] LABORATORY Na Whole Blood 140 135 - 145 mmol/L [facility] LABORATORY K Whole Blood 3.0 (Critical) 3.5 - 5.0 mmol/L [facility] LABORATORY Comment: Noted by instrumentation fitter. Please note: Patients with WBC >100,000 may [...] [facility] Comment: Noted by instrumentation fitter. FIO2 Art 100 % [facility] LABORATORY PF Ratio Art 238 [facility] LABORATORY Specimen Anatomical Collection Method Collection Time Receive d Time (Source) Location / / Volume Laterality Blood specimen 07/07/2017 6:57 PM 017 6:57 (specimen) EST PM EST Daphne Shahid MD CHEMISTRY ORDERABLES Performing Organization Address City/State/[place] [address] (ABNORMAL) BLOOD GAS 2 ARTERIAL (07/07/2017 5:31 PM EST) athologist Signature pH Art 7.29 7.35 - [facility] (Critical) 7.45 [facility] Comment: Noted by instrumentation fitter. pCO2 Art 48 (H) 35 - 45 [...] [facility]ICAL [facility] LABORATORY COHB Art 0.3 % [facility] LABORATORY Comment: Nonsmokers: 0.5-1.5% COHB Smokers: Variable, but usually less than 10% Toxic: 20-30% COHB Lethal: Greater than 60% COHB METHB Art 0.3 <=1.5 % [facility] LABORATORY Na Whole Blood 132 (L) [...] Shahid MD CHEMISTRY ORDERABLES Performing Organization Address City/[facility] Phon e Number [address] Fibrinogen (07/07/2017 5:30 PM EST) athologist Signature Fibrinogen 224 180 - 510 [facility] mg/dL [facility]ORATORY Comment: Called by: [facility], [...] Perez MD HEMATOLOGY ORDERABLES Performing Organization Address City/[facility] Phon e Number [address] APTT (07/07/2017 5:30 PM EST) P athologist Signature PTT 30 25 - [address] [facility] LABORATORY Comment: The recommended therapeutic range for fu ll dose, unfractionated heparin at [facility] is 80 ? [...] Perez MD HEMATOLOGY ORDERABLES Performing Organization Address City/[facility]/Z[place] [address] (ABNORMAL) Prothrombin Time (07/07/2017 [...] Perez MD HEMATOLOGY ORDERABLES Performing Organization Address City/[facility]/Z[place] [address] (ABNORMAL) Hemogram (07/07/2017 5:30 PM EST) P athologist Signature WBC 19.6 (H) 4.0 - 9.5 [facility] x10(3)/[facility] LABORATORY RBC 3.08 (L) 4.58 - [facility] 5.54 [facility] x10(6)/[facility] LABORATORY Hemoglobin 9.2 (L) 13.7 - [facility] 16.5 gm/dL [facility] LABORATORY Hematocrit 28.0 (L) 40.5 - [facility] 48.5 % [facility]ORATORY Comment: This result has been called to MONICA WEINSTEIN LUISA by DONALD GROSSMAN on 07 07 2017 at 1759, and has been read back. MCV 90.9 82.9 - 93.[address] [facility] LABORATORY MCH 29.9 27.5 - 32.[address] [facility] LABORATORY MCHC 32.9 32.0 - 35.7 gm/dL [facility] LABORATORY Platelets 155 145 - 357 x10(3)/[facility] LABORATORY RDWSD 46.5 (H) 36.0 - 45.[address] [facility] LABORATORY RDWCV 14.1 (H) 11.4 - 13.8 % [facility] LABORATORY MPV 9.5 7.6 - 12.9 fL [facility] LABORATORY nRBC % Auto 0.0 % [facility] LABORATORY nRBC Abs Auto 0.000 0.000 - 0.000 x10(3)/[facility] LABORATORY Specimen Anatomical Collection Method Collection Time Receive d Time (Source) Location / / Volume Laterality Blood specimen 07/07/2017 5:30 PM 017 5:34 (specimen) EST PM EST Resulting Agency Comment Spec In Lab Yifan Perez MD HEMATOLOGY ORDERABLES Performing Organization Address City/[facility]/[place]IP [facility] Ph[place] e Number [address] Prepare Platelets, Apheresis (07/07/2017 5:00 PM EST) P athologist Signature Dispensed? Yes [facility] Specimen Anatomical Collection Method Collection Time Receive d Time (Source) Location / / Volume Laterality Blood specimen 07/07/2017 5:00 PM 017 4:58 (specimen) EST PM EST Daphne Shahid MD BLOOD BANK ORDERABLES Performing Organization Address City/[facility]/ZIP [facility] [place]on [place] Number [address] Platelet count (07/07/2017 4:55 PM EST) P athologist Signature Platelets 177 145 - 357 [facility] x10(3)/[facility] LABORATORY Plat Immature 1.5 0.0 - 7.4 [facility] Comment: Limitation of the Immature Platelet Frac tion (IPF)-May be less reliable when the platelet count is less than 45c463/u L due to statistical imprecision. The IPF [...] in a decreased state of production. References: [facility] [employer] The Clinical Value of the Immature Platelet Fraction (IPF) in Cell Recovery Document Number 10-1143 12/2010 [facility] The Role of the Imm ature [...] Organization Address City/State/[place] [address] (ABNORMAL) Hemoglobin and Hematocrit, blood (07/07/2017 4:55 PM EST) athologist Signature Hemoglobin 9.1 (L) 13.7 - 16.5 [facility] gm/dL [facility] Comment: This result has [...] Organization Address City/State/[place] [address] (ABNORMAL) BLOOD GAS 2 ARTERIAL (07/07/2017 4:38 PM EST) Analysis Performed At Patho logist Time Signature pH Art 7.37 7.35 - [facility] 7.45 [facility] pCO2 Art 44 35 - 45 [facility] mmHg [facility] pO2 Art 322 (H) 85 - 104 [facility] LABORATORY HCO3 Art 24.9 20.0 - [facility] 26.0 [facility] mmol/L [facility] LABORATORY BE Art -0.4 -3.0 - 3.0 [facility] mmol/L [facility] Hgb Blood Gas 10.1 (L) 13.7 - [facility] 16.5 gm/dL [facility] O2HB Art 98.7 (H) 94.0 - [facility] 97.0 % [facility] COHB Art 0.1 % [facility] Comment: Nonsmokers: 0.5-1.5% COHB Smokers: Variable, but usually less than 10% Toxic: 20-30% COHB Lethal: Greater than 60% COHB METHB Art 0.3 <=1.5 % [facility] Na Whole Blood 130 (L) [...] [facility] Comment: Noted by instrumentation fitter. Note: ??Total bilirubin higher than 20 m [...] Organization Address City/State/[place] [address] (ABNORMAL) BLOOD GAS 2 VENOUS (07/07/2017 4:06 PM EST) Analysis Performed At Patho logist Time Signature pH Cody 7.31 (L) 7.32 - [facility] 7.42 [facility] pCO2 Cody 47 41 - 51 [facility] LABORATORY pO2 Cody 53 (H) 25 - 40 [facility] LABORATORY HCO3 Cody 22.7 mmol/L [facility] BE Cody -3.7 mmol/L [facility] Hgb Blood Gas 10.2 (L) 13.7 - [facility] 16.5 gm/dL [facility] O2HB Cody 81.0 % [facility] COHB Cody 1.0 % [facility] Comment: Nonsmokers: 0.5-1.5% COHB Smokers: Variable, but usually less than 10% Toxic: 20-30% COHB Lethal: Greater than 60% COHB METHB Cody 0.3 <=1.5 % [facility] Na Whole Blood 132 (L) [...] [facility] Comment: Noted by instrumentation fitter. Note: ??Total bilirubin higher than 20 m g/dL may lead to falsely low ionized calcium. CL Whole Blood 100 98 - 107 mmol/L [facility] Gluc Whole Bld 231 (H) 65 - 199 mg/dL [facility] Comment: Diabetes: >=200 mg/dL plus symp toms Lactate WB 1.1 0.5 - 2.2 mmol/L [facility] BGas Source Venous [facility] Specimen Anatomical Collection Method Collection Time Receive d Time (Source) Location / / Volume Laterality Blood specimen 07/07/2017 4:06 PM 017 4:06 (specimen) EST PM EST Daphne Shahid MD CHEMISTRY ORDERABLES Performing Organization Address City/State/[place] [address] (ABNORMAL) BLOOD GAS 2 ARTERIAL (07/07/2017 4:05 PM EST) Analysis Performed At Patho logist Time Signature pH Art 7.36 7.35 - [facility] 7.45 [facility] pCO2 Art 40 35 - 45 [facility] LABORATORY pO2 Art 282 (H) 85 - 104 [facility] LABORATORY HCO3 Art 22.1 20.0 - [facility] 26.0 [facility] mmol/L [facility] LABORATORY BE Art -3.4 (L) -3.0 - 3.0 [facility] mmol/L [facility] Hgb Blood Gas 10.2 (L) 13.7 - [facility] 16.5 gm/dL [facility] O2HB Art 98.4 (H) 94.0 - [facility] 97.0 % [facility] COHB Art 0.3 % [facility] Comment: Nonsmokers: 0.5-1.5% COHB Smokers: Variable, but usually less than 10% Toxic: 20-30% COHB Lethal: Greater than 60% COHB METHB Art 0.3 <=1.5 % [facility] Na Whole Blood 131 (L) [...] [facility] Comment: Noted by instrumentation fitter. Note: ??Total bilirubin higher than 20 m [...] Organization Address City/State/[place] [address] (ABNORMAL) BLOOD GAS 2 ARTERIAL (07/07/2017 2:29 PM EST) Analysis Performed At Patho logist Time Signature pH Art 7.43 7.35 - [facility] 7.45 [facility] pCO2 Art 36 35 - 45 [facility] mmHg [facility] pO2 Art 221 (H) 85 - 104 [facility] LABORATORY HCO3 Art 23.2 20.0 - [facility] 26.0 [facility] mmol/L [facility] LABORATORY BE Art -1.2 -3.0 - 3.0 [facility] mmol/L [facility] Hgb Blood Gas 13.9 13.7 - [facility] 16.5 gm/dL [facility] O2HB Art 97.8 (H) 94.0 - [facility] 97.0 % [facility] COHB Art 1.1 % [facility] Comment: Nonsmokers: 0.5-1.5% COHB Smokers: Variable, but usually less than 10% Toxic: 20-30% COHB Lethal: Greater than 60% COHB METHB Art 0.3 <=1.5 % [facility] Na Whole Blood 139 135 [...] Shahid MD CHEMISTRY ORDERABLES Performing Organization Address City/[facility] [place] [address] Prepare Coag Factors (Non-Hemophilia) (07/07/2017 1:25 PM EST) P athologist Signature Dispensed? Yes [facility] Specimen Anatomical Collection Method Collection Time Receive d Time (Source) Location / / Volume Laterality Blood specimen 07/07/2017 1:25 PM 017 1:21 (specimen) EST PM EST Daphne Shahid MD BLOOD BANK ORDERABLES Performing Organization Address City/[facility] [place] [address] Prepare RBC (07/07/2017 1:10 PM EST) P athologist Signature Dispensed? Yes [facility] Specimen Anatomical Collection Method Collection Time Receive d Time (Source) Location / / Volume Laterality Blood specimen 07/07/2017 1:10 PM 017 1:05 (specimen) EST PM EST Daphne Shahid MD BLOOD BANK ORDERABLES Performing Organization Address City/[facility]/ZIP Code Phon e Number [address] POCT Glucose (07/07/2017 11:56 AM EST) P athologist Signature POC Glucose 188 65 - 199 [place] mg/dL [facility] Comment: Supplemental [...] City/[facility]/ZIP Code Phon e Number [address] POCT Glucose (07/07/2017 11:05 AM EST) athologist Signature POC Glucose 168 65 - 199 [place] mg/dL [facility] Comment: Supplemental ranges: <140 mg/dL before meals <180 mg/dL all other times of the day Specimen Anatomical Collection Method Collection Time Receive d Time (Source) Location / / Volume Laterality Blood specimen 07/07/2017 11:05 7 (specimen) AM EST 11:05 AM EST Daphne Shahid MD POINT OF CARE TEST ORDERABLE S Performing Organization Address City/State/ZIP [place] [address] POCT Glucose (07/07/2017 10:02 AM EST) P athologist Signature POC Glucose 191 65 - 199 [place] [facility] mg/dL [facility] Comment: Supplemental [...] City/[facility]/ZIP Code Phon e Number [address] POCT Glucose (07/07/2017 7:53 AM EST) P athologist Signature POC Glucose 178 65 - 199 [place] ZHAORYAN mg/dL [facility] Comment: Supplemental [...] City/[facility]/ZIP Code Phon e Number [address] POCT Glucose (07/07/2017 7:03 AM EST) athologist Signature POC Glucose 188 65 - 199 [place] ZHAORYAN mg/dL [facility] Comment: Supplemental [...] City/[facility]/ZIP [place] [address] (ABNORMAL) POCT Glucose (07/07/2017 6:17 AM EST) P athologist Signature POC Glucose 207 (H) 65 - 199 [place] mg/dL [facility] Comment: Supplemental [...] Address City/State/ZIP Code Phon e Number [address] Differential, Automated (07/07/2017 5:15 AM EST) P athologist Signature Neutrophils % 69.7 % [facility] Neutr Abs (ANC) 5.32 1.70 - [facility] 6.10 [facility] x10(3)/[facility] LABORATORY Lymphocytes % 16.3 % [facility] Lymphocytes Abs 1.2 0.9 - 3.2 [facility] x10(3)/[facility] LABORATORY Monocytes % 10.5 % [facility] Monocyte Abs 0.8 0.3 - 0.9 [facility] x10(3)/[facility] LABORATORY Eosinophils % 2.5 % [facility] Eosinophils Abs 0.2 0.0 - 0.4 [facility] x10(3)/[facility] LABORATORY Basophils % 0.7 % [facility] Basophils Abs 0.0 0.0 - 0.1 [facility] x10(3)/[facility] LABORATORY Immature Gran % 0.30 % [...] Melisa Gran Abs 0.02 0.00 - 0.04 x10(3)/[facility] MAR Y [facility] Specimen Anatomical Collection Method Collection Time Receive d Time (Source) Location / / Volume Laterality Blood specimen 07/07/2017 5:15 AM 017 5:34 (specimen) EST AM EST Resulting Agency Comment Spec In Lab Daphne Shahid MD HEMATOLOGY ORDERABLES Performing Organization Address City/State/ZIP Code Phon e Number [address] (ABNORMAL) Hemogram (07/07/2017 5:15 AM EST) Analysis Performed At Patho logist Time Signature WBC 7.6 4.0 - 9.5 [facility] x10(3)/[facility] LABORATORY RBC 4.82 4.58 - [place] 5.54 [facility] x10(6)/[facility] LABORATORY Hemoglobin 14.4 13.7 - [facility] 16[facility] gm/dL [facility] Hematocrit 42.1 40.5 - [facility] 48.5 % [facility] MCV 87.3 82.9 - [facility] 93.1 [facility] LABORATORY MCH 29.9 27.5 - [facility] 32.1 pg [facility] MCHC 34.2 32.0 - [facility] 35.7 gm/dL [facility] Platelets 188 145 - 357 [facility] x10(3)/[facility] LABORATORY RDWSD 45.1 (H) 36.0 [facility] 45.0 [facility] LABORATORY RDWCV 14.3 (H) 11.4 - [facility] 13.8 % [facility] MPV 9.4 7.6 - 12.9 [facility] LABORATORY nRBC % Auto 0.0 % [facility] nRBC Abs Auto 0.000 0.000 - [facility] 0.000 [facility] x10(3)/[facility] LABORATORY Specimen Anatomical Collection Method Collection Time Receive d Time (Source) Location / / Volume Laterality Blood specimen 07/07/2017 5:15 AM 017 5:34 (specimen) EST AM EST Resulting Agency Comment Spec In Lab Daphne Shahid MD HEMATOLOGY ORDERABLES Performing Organization Address City/State/[place] [address] (ABNORMAL) APTT (07/07/2017 5:15 AM EST) P athologist Signature PTT 69 (H) 25 - [address] [facility] Comment: The recommended therapeutic range for fu ll dose, unfractionated heparin at [facility] is 80 ? [...] EST Resulting Agency Comment Spec In Lab aDphne Shahid MD HEMATOLOGY ORDERABLES Performing Organization Address City/[facility]/ZIP Code Phon e Number [address] Magnesium (07/07/2017 5:15 AM EST) athologist Signature Magnesium 0.94 0.69 - 1.07 [facility] mmol/L [facility] Specimen Anatomical Collection Method Collection Time Receive d Time (Source) Location / / Volume Laterality Blood specimen 07/07/2017 5:15 AM 017 5:34 (specimen) EST AM EST Resulting Agency Comment Spec In Lab Daphne Shahid MD CHEMISTRY ORDERABLES Performing Organization Address City/[facility]/ZIP [place] [address] (ABNORMAL) Basic Metabolic Panel (non-fasting) (07/07/2017 5:15 AM EST) athologist Signature Glucose Lvl 203 (H) 65 - 199 [facility] mg/dL [facility] Comment: Diabetes: >=200 mg/dL [...] [facility] Estimated GFR >60 >=60 [facility] Comment: The reported eGFR should be multiplied b y 1.2 for patients. The MDRD is not an appropriate measure o f renal function for patients with body mass extremes or in patients with acute kidney failure. http://Askem/DHnkdep http://Askem/DHMCnkf Specimen Anatomical Collection Method Collection Time Receive d Time (Source) Location / / Volume Laterality Blood specimen 07/07/2017 5:15 AM 017 5:34 (specimen) EST AM EST Resulting Agency Comment Spec In Lab Daphne Shahid MD CHEMISTRY ORDERABLES Performing Organization Address City/State/[place] [address] (ABNORMAL) Cardiac Enzymes (LEB/CGP) (07/07/2017 5:15 AM EST) P athologist Signature Troponin-T 2.07 (H) 0.00 - [facility] 0.00 ng/mL [facility] Comment: The 99th percentile [...] additional sample may be indicated. Reference: Third [place] Definition of Myocardial Infarction. Journal of the [place] [employer] 2012;60:1581-98 CK, Total 88 0 - 200 unit/L [facility] Specimen Anatomical Collection Method Collection Time Receive d Time (Source) Location / / Volume Laterality Blood specimen 07/07/2017 5:15 AM 017 5:34 (specimen) EST AM EST Resulting Agency Comment Spec In Lab Daphne Shahid MD CHEMISTRY ORDERABLES Performing Organization Address City/[facility]/ZIP Code Phon e Number [address] POCT Glucose (07/07/2017 5:01 AM EST) athologist Signature POC Glucose 182 65 - 199 [facility] mg/dL [facility] Comment: Supplemental [...] City/[facility]/ZIP Code Phon e Number [address] POCT Glucose (07/07/2017 4:08 AM EST) athologist Signature POC Glucose 199 65 - 199 [facility] mg/dL [facility] Comment: Supplemental [...] City/[facility]/Z[place] [address] POCT Glucose (07/07/2017 3:03 AM EST) athologist Signature POC Glucose 188 65 - 199 [facility] mg/dL [facility] Comment: Supplemental ranges: <140 mg/dL before meals <180 mg/dL all other times of the day Specimen Anatomical Collection Method Collection Time Receive d Time (Source) Location / / Volume Laterality Blood specimen 07/07/2017 3:03 AM 017 3:03 (specimen) EST AM EST Daphne Shahid MD POINT OF CARE TEST ORDERABLE S Performing Organization Address City/State/Z[place] [address] (ABNORMAL) POCT Glucose (07/07/2017 2:08 AM EST) athologist Signature POC Glucose 200 (H) 65 - 199 [facility] mg/dL [facility] Comment: Supplemental ranges: <140 mg/dL before meals <180 mg/dL all other times of the day Specimen Anatomical Collection Method Collection Time Receive d Time (Source) Location / / Volume Laterality Blood specimen 07/07/2017 2:08 AM 017 2:08 (specimen) EST AM EST Daphne Shahid MD POINT OF CARE TEST ORDERABLE S Performing Organization Address City/State/Z[place] [address] (ABNORMAL) POCT Glucose (07/07/2017 1:31 AM EST) athologist Signature POC Glucose 209 (H) 65 - 199 [facility] mg/dL [facility] Comment: Supplemental ranges: <140 mg/dL before meals <180 mg/dL all other times of the day Specimen Anatomical Collection Method Collection Time Receive d Time (Source) Location / / Volume Laterality Blood specimen 07/07/2017 1:31 AM 017 1:31 (specimen) EST AM EST Daphne Shahid MD POINT OF CARE TEST ORDERABLE S Performing Organization Address City/State/Z[place] [address] XR Chest PA or [...] Signature POC Glucose 161 65 - 199 [facility] mg/dL [facility] Comment: Supplemental ranges: <140 mg/dL before meals <180 mg/dL all other times of the day Specimen Anatomical Collection Method Collection Time Receive d Time (Source) Location / / Volume Laterality Blood specimen 07/07/2017 12:07 7 (specimen) AM EST 12:07 AM EST Daphne Shahid MD POINT OF CARE TEST ORDERABLE S Performing Organization Address City/State/[place] [address] (ABNORMAL) APTT (07/07/2017 12:00 AM EST) athologist Signature PTT 103 (H) 25 - [address] [facility] Comment: The recommended therapeutic range for fu ll dose, unfractionated heparin at [facility] is 80 ? [...] Shahid MD HEMATOLOGY ORDERABLES Performing Organization Address City/[facility]/ZIP Code Phon e Number [address] POCT Glucose (07/06/2017 9:55 PM EST) athologist Signature POC Glucose 109 65 - 199 [facility] mg/dL [facility] Comment: Supplemental [...] City/[facility]/ZIP Code Phon e Number [address] POCT Glucose (07/06/2017 9:04 PM EST) athologist Signature POC Glucose 120 65 - 199 [facility] mg/dL [facility] Comment: Supplemental [...] Address City/State/ZIP Code Phon e Number [address] POCT Glucose (07/06/2017 7:45 PM EST) athologist Signature POC Glucose 158 65 - 199 [place] mg/dL [facility] Comment: Supplemental [...] City/[facility]/ZIP Code Phon e Number [address] Potassium (07/06/2017 7:40 PM EST) athologist [facility] Potassium 3.9 3.5 - 5.0 [facility] mmol/L [facility] Comment: Please note: ??Patients [...] Shahid MD CHEMISTRY ORDERABLES Performing Organization Address City/[facility]/Z[place] [address] (ABNORMAL) Cardiac Enzymes (LEB/CGP) (07/06/2017 7:40 PM EST) athologist Signature Troponin-T 2.27 (H) 0.00 - [facility] 0.00 ng/mL [facility] Comment: The 99th percentile [...] additional sample may be indicated. Reference: Third [place] Definition of Myocardial Infarction. Journal of the [place] [employer] 2012;60:1581-98 CK, Total 93 0 - 200 unit/L [facility] Specimen Anatomical Collection Method Collection Time Receive d Time (Source) Location / / Volume Laterality Blood specimen 07/06/2017 7:40 PM 017 7:52 (specimen) EST PM EST Resulting Agency Comment Spec In Lab Daphne Shahid MD CHEMISTRY ORDERABLES Performing Organization Address City/State/Z[place] [address] (ABNORMAL) POCT Glucose (07/06/2017 7:13 PM EST) P athologist Signature POC Glucose 200 (H) 65 - 199 [facility] mg/dL [facility] Comment: Supplemental ranges: <140 mg/dL before meals <180 mg/dL all other times of the day Specimen Anatomical Collection Method Collection Time Receive d Time (Source) Location / / Volume Laterality Blood specimen 07/06/2017 7:13 PM 017 7:13 (specimen) EST PM EST Daphne Shahid MD POINT OF CARE TEST ORDERABLE S Performing Organization Address City/State/Z[place] [address] (ABNORMAL) APTT (07/06/2017 6:15 PM EST) athologist Signature PTT 94 (H) 25 - [address] [facility] Comment: The recommended therapeutic range for fu ll dose, unfractionated heparin at [facility] is 80 ? [...] Address City/State/ZIP Code Phon e Number [address] (ABNORMAL) POCT Glucose (07/06/2017 6:03 PM EST) athologist Signature POC Glucose 236 (H) 65 - 199 [facility] mg/dL [facility] Comment: Supplemental [...] City/[facility]/Z[place] [address] (ABNORMAL) POCT Glucose (07/06/2017 5:01 PM EST) athologist Signature POC Glucose 235 (H) 65 - 199 [facility] mg/dL [facility] Comment: Supplemental [...] Address City/State/ZIP Code [place] [address] (ABNORMAL) POCT Glucose (07/06/2017 4:06 PM EST) athologist Signature POC Glucose 202 (H) 65 - 199 [facility] mg/dL [facility] Comment: Supplemental [...] Address City/State/ZIP Code Phon e Number [address] POCT Glucose (07/06/2017 2:59 PM EST) athologist Signature POC Glucose 178 65 - 199 [facility] mg/dL [facility] Comment: Supplemental ranges: <140 mg/dL before meals <180 mg/dL all other times of the day Specimen Anatomical Collection Method Collection Time Receive d Time (Source) Location / / Volume Laterality Blood specimen 07/06/2017 2:59 PM 017 2:59 (specimen) EST PM EST Daphne Shahid MD POINT OF CARE TEST ORDERABLE S Performing Organization Address City/State/ZIP [place] [address] (ABNORMAL) Cardiac Enzymes (LEB/CGP) (07/06/2017 2:10 PM EST) athologist Signature Troponin-T 2.34 (H) 0.00 - [facility] 0.00 ng/mL [facility] Comment: The 99th percentile [...] additional sample may be indicated. Reference: Third [place] Definition of Myocardial Infarction. Journal of the [place] [employer] 2012;60:1581-98 CK, Total 101 0 - 200 unit/L [facility] Specimen Anatomical Collection Method Collection Time Receive d Time (Source) Location / / Volume Laterality Blood specimen 07/06/2017 2:10 PM 017 2:26 (specimen) EST PM EST Resulting Agency Comment Spec In Lab Daphne Shahid MD CHEMISTRY ORDERABLES Performing Organization Address City/[facility]/ZIP Code Phon e Number [address] POCT Glucose (07/06/2017 2:08 PM EST) athologist Signature POC Glucose 192 65 - 199 [facility] mg/dL [facility] Comment: Supplemental ranges: <140 mg/dL before meals <180 mg/dL all other times of the day Specimen Anatomical Collection Method Collection Time Receive d Time (Source) Location / / Volume Laterality Blood specimen 07/06/2017 2:08 PM 017 2:08 (specimen) EST PM EST Daphne Shahid MD POINT OF CARE TEST ORDERABLE S Performing Organization Address City/[facility]/[place]IP [facility] [place] [address] POCT Glucose (07/06/2017 1:04 PM EST) athologist Signature POC Glucose 162 65 - 199 [facility]dL [facility] Comment: Supplemental ranges: <140 mg/dL before meals <180 mg/dL all other times of the day Specimen Anatomical Collection Method Collection Time Receive d Time (Source) Location / / Volume Laterality Blood specimen 07/06/2017 1:04 PM 017 1:04 (specimen) EST PM EST Daphne Shahid MD POINT OF CARE TEST ORDERABLE S Performing Organization Address City/State/ZIP [place] [address] POCT Glucose (07/06/2017 12:05 PM EST) P athologist Signature POC Glucose 196 65 - 199 [facility] mg/dL [facility] Comment: Supplemental [...] City/[facility]/ZIP [place] [address] EKG 12 Lead (07/06/2017 12:00 PM EST) Component Value Ref Range Test Analysis Performed Pathologis t Method Time At Signature Ventricular rate 91 BPM MUSE SYSTEM Atrial Rate 91 BPM MUSE SYSTEM P-R Interval 140 ms MUSE SYSTEM QRS Duration 94 ms MUSE SYSTEM Q-T Interval 394 ms MUSE SYSTEM QTC Calculated 484 ms MUSE SYSTEM (Bezet) Calculated P [place] 36 degrees MUSE SYSTEM Calculated R [place] -19 degrees MUSE SYSTEM Calculated T [place] 104 degrees MUSE SYSTEM INTERPRETATION Normal sinus rhythm MUSE SYSTEM 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) ST & T wave abnormality, consider lateral ischemia Abnormal ECG When compared with ECG of 05-JUL-2017 20:39, No significant change was found Confirmed by MD Luci, Taurus Braun ([id number]) on 07/06/2017 5:07:33 PM Specimen Anatomical Collection Method Collection Time Receive d Time (Source) Location / / Volume Laterality 07/06/2017 12:00 07/06/2017 5:07 PM EST PM EST Daphne Shahid MD ECG ORDERABLES Performing Organization Address City/State/ZIP Code Phon e Number MUSE SYSTEM ABORH Recheck Status (07/06/2017 12:00 PM EST) [facility] Method Time Signature ABORH Type Completed [facility] LABORATORY Specimen Anatomical Collection Method Collection Time Receive d Time (Source) Location / / Volume Laterality Blood specimen 07/06/2017 12:00 7 (specimen) PM EST 12:24 PM EST Resulting Agency Comment Spec In Lab Daphne Shahid MD BLOOD BANK ORDERABLES Performing Organization Address City/State/Z[place] [address] Antibody screen (07/06/2017 12:00 PM EST) [facility] Method Time Signature Ab Screen Negative [facility] LABORATORY Expires at 07/09/2017 [facility] [id number] on: [facility] LAB[facility] Specimen Anatomical Collection Method Collection Time Receive d Time (Source) Location / / Volume Laterality Blood specimen 07/06/2017 12:00 7 (specimen) PM EST 12:24 PM EST Resulting Agency Comment Spec In Lab Daphne Shahid MD BLOOD BANK ORDERABLES Performing Organization Address City/State/[place] [address] ABO/Rh Typing (07/06/2017 12:00 [...] Organization Address City/State/[place] [address] Prothrombin Time (07/06/2017 11:24 [...] Shahid MD HEMATOLOGY ORDERABLES Performing Organization Address City/[facility]/ZIP Code Phon e Number [address] (ABNORMAL) APTT (07/06/2017 11:24 AM EST) P athologist Signature PTT 52 (H) 25 - [address] [facility] LABORATORY Comment: The recommended therapeutic range for fu ll dose, unfractionated heparin at [facility] is 80 ? [...] Shahid MD HEMATOLOGY ORDERABLES Performing Organization Address City/[facility]/ZIP [place] [address] POCT Glucose (07/06/2017 11:02 AM EST) P athologist Signature POC Glucose 187 65 - 199 [facility] mg/dL [facility] Comment: Supplemental [...] Address City/State/ZIP Code Phon e Number [address] POCT Glucose (07/06/2017 10:18 AM EST) athologist Signature POC Glucose 193 65 - 199 [place] [facility] mg/dL [facility] Comment: Supplemental [...] City/[facility]/ZIP Code Phon e Number [address] POCT Glucose (07/06/2017 9:25 AM EST) athologist Signature POC Glucose 182 65 - 199 [facility]/dL [facility] Comment: Supplemental [...] City/[facility]/Z[place] [address] (ABNORMAL) Cardiac Enzymes (LEB/CGP) (07/06/2017 8:10 AM EST) athologist Signature Troponin-T 2.26 (H) 0.00 - [facility] 0.00 ng/mL [facility] Comment: The 99th percentile [...] additional sample may be indicated. Reference: Third [place] Definition of Myocardial Infarction. Journal of the [place] [employer] 2012;60:1581-98 CK, Total 124 0 - 200 unit/L [facility] LABORATORY Specimen Anatomical Collection Method Collection Time Receive d Time (Source) Location / / Volume Laterality Blood specimen 07/06/2017 8:10 AM 017 8:23 (specimen) EST AM EST Resulting Agency Comment Spec In Lab Daphne Shahid MD CHEMISTRY ORDERABLES Performing Organization Address City/State/ZIP Code Phon e Number [address] Magnesium (07/06/2017 8:10 AM EST) P athologist Signature Magnesium 0.84 0.69 - 1.07 [facility] mmol/L [facility] Specimen Anatomical Collection Method Collection Time Receive d Time (Source) Location / / Volume Laterality Blood specimen 07/06/2017 8:10 AM 017 8:21 (specimen) EST AM EST Resulting Agency Comment Spec In Lab Daphne Shahid MD CHEMISTRY ORDERABLES Performing Organization Address City/[facility]/ZIP Code Phon e Number [address] (ABNORMAL) Basic Metabolic Panel (non-fasting) (07/06/2017 8:10 AM EST) P athologist Signature Glucose Lvl 199 65 - 199 [facility]dL [facility] Comment: Diabetes: >=200 mg/dL [...] [facility] Estimated GFR >60 >=60 [facility] LABORATORY Comment: The reported eGFR should be multiplied b y 1.2 for patients. The MDRD is not an appropriate measure o f renal function for patients with body mass extremes or in patients with acute kidney failure. http://[employer].Lemoptix/DHnkdep http://Askem/DHMCnkf Specimen Anatomical Collection Method Collection Time Receive d Time (Source) Location / / Volume Laterality Blood specimen 07/06/2017 8:10 AM 017 8:21 (specimen) EST AM EST Resulting Agency Comment Spec In Lab Daphne Shahid MD CHEMISTRY ORDERABLES Performing Organization Address City/State/[place] [address] POCT Glucose (07/06/2017 7:34 AM EST) P athologist Signature POC Glucose 198 65 - 199 [facility] mg/dL [facility] Comment: Supplemental [...] Address City/State/ZIP Code Phon e Number [address] POCT Glucose (07/06/2017 7:03 AM EST) P athologist Signature POC Glucose 181 65 - 199 [facility] mg/dL [facility] Comment: Supplemental ranges: <140 mg/dL before meals <180 mg/dL all other times of the day Specimen Anatomical Collection Method Collection Time Receive d Time (Source) Location / / Volume Laterality Blood specimen 07/06/2017 7:03 AM 017 7:03 (specimen) EST AM EST Daphne Shahid MD POINT OF CARE TEST ORDERABLE S Performing Organization Address City/State/[place] [address] XR Chest PA or [...] POC Glucose 172 65 - 199 [facility] mg/dL [facility] Comment: Supplemental ranges: <140 mg/dL before meals <180 mg/dL all other times of the day Specimen Anatomical Collection Method Collection Time Receive d Time (Source) Location / / Volume Laterality Blood specimen 07/06/2017 6:21 AM 017 6:21 (specimen) EST AM EST Daphne Shahid MD POINT OF CARE TEST ORDERABLE S Performing Organization Address City/State/Z[place] [address] POCT Glucose (07/06/2017 5:08 AM EST) athologist Signature POC Glucose 154 65 - 199 [facility] mg/dL [facility] Comment: Supplemental ranges: <140 mg/dL before meals <180 mg/dL all other times of the day Specimen Anatomical Collection Method Collection Time Receive d Time (Source) Location / / Volume Laterality Blood specimen 07/06/2017 5:08 AM 017 5:08 (specimen) EST AM EST Daphne Shahid MD POINT OF CARE TEST ORDERABLE S Performing Organization Address City/State/[place] [address] POCT Glucose (07/06/2017 4:05 AM EST) athologist Signature POC Glucose 142 65 - 199 [facility] mg/dL [facility] Comment: Supplemental ranges: <140 mg/dL before meals <180 mg/dL all other times of the day Specimen Anatomical Collection Method Collection Time Receive d Time (Source) Location / / Volume Laterality Blood specimen 07/06/2017 4:05 AM 017 4:05 (specimen) EST AM EST Daphne Shahid MD POINT OF CARE TEST ORDERABLE S Performing Organization Address City/[facility] Phon e Number [address] POCT Glucose (07/06/2017 3:00 AM EST) athologist Signature POC Glucose 116 65 - 199 [facility] mg/dL [facility] Comment: Supplemental ranges: <140 mg/dL before meals <180 mg/dL all other times of the day Specimen Anatomical Collection Method Collection Time Receive d Time (Source) Location / / Volume Laterality Blood specimen 07/06/2017 3:00 AM 017 3:00 (specimen) EST AM EST Daphne Shahid MD POINT OF CARE TEST ORDERABLE S Performing Organization Address City/[facility] [place] [address] Potassium (07/06/2017 2:20 AM EST) athologist Signature Potassium 3.9 3.5 - 5.0 [facility] mmol/L [facility] Comment: Please note: ??Patients [...] Organization Address City/State/ZIP Code Phon e Number [place] [id number] Differential, Automated (07/06/2017 2:20 AM EST) P athologist Signature Neutrophils % 72.9 % [facility] LABORATORY Neutr Abs (ANC) 5.53 1.70 - [facility] 6.10 [facility] x10(3)/[facility] LABORATORY Lymphocytes % 16.4 % [facility] LABORATORY Lymphocytes Abs 1.2 0.9 - 3.2 [facility] x10(3)/[facility] LABORATORY Monocytes % 9.4 % [facility] LABORATORY Monocyte Abs 0.7 0.3 - 0.9 [facility] x10(3)/[facility] LABORATORY Eosinophils % 0.5 % [facility] LABORATORY Eosinophils Abs 0.0 0.0 - 0.4 [facility] x10(3)/[facility] LABORATORY Basophils % 0.4 % [facility] LABORATORY Basophils Abs 0.0 0.0 - 0.1 [facility] x10(3)/[facility] LABORATORY Immature Gran % 0.40 % [...] Melisa Gran Abs 0.03 0.00 - 0.04 x10(3)/[facility] MAR Y [facility] LABORATORY Specimen Anatomical Collection Method Collection Time Receive d Time (Source) Location / / Volume Laterality Blood specimen 07/06/2017 2:20 AM 017 2:33 (specimen) EST AM EST Resulting Agency Comment Spec In Lab Daphne Shahid MD HEMATOLOGY ORDERABLES Performing Organization Address City/State/[place] [address] (ABNORMAL) Hemogram (07/06/2017 2:20 AM EST) Analysis Performed At Patho logist Time Signature WBC 7.6 4.0 - 9.5 [facility] x10(3)/[facility] LABORATORY RBC 4.52 (L) 4.58 - [facility] 5.54 [facility] x10(6)/[facility] LABORATORY Hemoglobin 13.4 (L) 13.7 - [facility] 16.5 gm/dL [facility] Hematocrit 39.7 (L) 40.5 - [facility] 48.5 % [facility] MCV 87.8 82.9 [facility] 93[facility]1 [facility] LABORATORY MCH 29.6 27.5 - [facility] 32.1 pg [facility] LABORATORY MCHC 33.8 32.0 - [facility] 35.7 gm/dL [facility] Platelets 189 145 - 357 [facility] x10(3)/[facility] LABORATORY RDWSD 45.6 (H) 36.0 - [facility] 45.0 [facility] LABORATORY RDWCV 14.3 (H) 11.4 - [facility] 13.8 % [facility] LABORATORY MPV 9.1 7.6 - 12.9 [facility] LABORATORY nRBC % Auto 0.0 % [facility] LABORATORY nRBC Abs Auto 0.000 0.000 - [facility] 0.000 [facility] x10(3)/[facility] LABORATORY Specimen Anatomical Collection Method Collection Time Receive d Time (Source) Location / / Volume Laterality Blood specimen 07/06/2017 2:20 AM 017 2:33 (specimen) EST AM EST Resulting Agency Comment Spec In Lab Daphne Shahid MD HEMATOLOGY ORDERABLES Performing Organization Address City/State/[place] [address] (ABNORMAL) APTT (07/06/2017 2:20 AM EST) P athologist Signature PTT 52 (H) 25 - [address] [facility] LABORATORY Comment: The recommended therapeutic range for fu ll dose, unfractionated heparin at [facility] is 80 ? [...] Address City/State/ZIP Code Phon e Number [address] POCT Glucose (07/06/2017 2:20 AM EST) athologist Signature POC Glucose 115 65 - 199 [facility] mg/dL [facility] Comment: Supplemental [...] City/[facility]/Z[place] [address] (ABNORMAL) Cardiac Enzymes (LEB/CGP) (07/06/2017 2:20 AM EST) athologist Signature Troponin-T 2.13 (H) 0.00 - [facility] 0.00 ng/mL [facility] Comment: The 99th percentile [...] additional sample may be indicated. Reference: Third [place] Definition of Myocardial Infarction. Journal of the [place] [employer] 2012;60:1581-98 CK, Total 129 0 - 200 unit/L [facility] LABORATORY Specimen Anatomical Collection Method Collection Time Receive d Time (Source) Location / / Volume Laterality Blood specimen 07/06/2017 2:20 AM 017 2:33 (specimen) EST AM EST Resulting Agency Comment Spec In Lab Daphne Shahid MD CHEMISTRY ORDERABLES Performing Organization Address City/State/[place] [address] (ABNORMAL) Hemoglobin A1c (07/06/2017 2:20 AM EST) Analysis Performed At Patho logist Time Signature Hemoglobin A1C 6.8 (H) 4.3 - 5.6 [facility] [...] Mellitus, Diabetes Care 2013; 36: Suppl. 1, I67-65 Est Avg Gluc See note mg/dL KERBS [...] into estimated average glucose values. ??Diabetes Care 2008:31(8):7256-3874. Specimen Anatomical Collection Method Collection Time Receive d Time (Source) Location / / Volume Laterality Blood specimen 07/06/2017 2:20 AM 017 2:34 (specimen) EST AM EST Resulting Agency Comment Spec In Lab Daphne Shahid MD CHEMISTRY ORDERABLES Performing Organization Address City/State/Z[place] [address] (ABNORMAL) Lipid Panel (07/06/2017 2:20 AM EST) [facility] Method Time Signature Chol, Total 150 <=239 [place] mg/dL [facility] LABORATORY Triglycerides 129 <=199 [place] mg/dL [facility] LABORATORY HDL 32 (L) >=40 [place] mg/dL [facility] LABORATORY LDL Cholesterol 92 <=190 [place] mg/dL [facility] LABORATORY Chol/HDL Ratio 4.[address] [facility] LABORATORY Lipid See Note [place] Interpretation [facility] LABORATORY Comment: Lipid management should be guided by a p atient? s ASCVD risk, goals and preferences. ACC/AHA Guidelines recommend high intens ity statin if clinical ASCVD or LDL greater than or equal to 190 mg/dL. http://Melbossurl.com/TEF-KRG-Vzamtfzvy Adults aged 40-75 with LDL 70-189 mg/dL should have their 10 year ASCVD risk estimated with the ACC/AHA ASCVD risk es timator http://tools.acc.org/HIFWX-Alyh-Ynhmlrsn r/ Statin should be discussed if risk [...] Shahid MD CHEMISTRY ORDERABLES Performing Organization Address City/[facility]/ZIP Code Phon e Number [address] POCT Glucose (07/06/2017 1:09 AM EST) athologist Signature POC Glucose 121 65 - 199 [facility] mg/dL [facility] Comment: Supplemental ranges: <140 mg/dL before meals <180 mg/dL all other times of the day Specimen Anatomical Collection Method Collection Time Receive d Time (Source) Location / / Volume Laterality Blood specimen 07/06/2017 1:09 AM 017 1:09 (specimen) EST AM EST Daphne Shahid MD POINT OF CARE TEST ORDERABLE S Performing Organization Address City/State/Z[place] [address] POCT Glucose (07/06/2017 12:06 AM EST) P athologist Signature POC Glucose 147 65 - 199 [facility] mg/dL [facility] Comment: Supplemental ranges: <140 mg/dL before meals <180 mg/dL all other times of the day Specimen Anatomical Collection Method Collection Time Receive d Time (Source) Location / / Volume Laterality Blood specimen 07/06/2017 12:06 7 (specimen) AM EST 12:06 AM EST Daphne Shahid MD POINT OF CARE TEST ORDERABLE S Performing Organization Address City/State/Z[place] [address] (ABNORMAL) POCT Glucose (07/05/2017 10:56 PM EST) P athologist Signature POC Glucose 200 (H) 65 - 199 [facility] mg/dL [facility] Comment: Supplemental ranges: <140 mg/dL before meals <180 mg/dL all other times of the day Specimen Anatomical Collection Method Collection Time Receive d Time (Source) Location / / Volume Laterality Blood specimen 07/05/2017 10:56 7 (specimen) PM EST 10:56 PM EST Daphne Shahid MD POINT OF CARE TEST ORDERABLE S Performing Organization Address City/State/[place] [address] (ABNORMAL) POCT Glucose (07/05/2017 10:05 PM EST) P athologist Signature POC Glucose 225 (H) 65 - 199 [facility] mg/dL [facility] Comment: Supplemental ranges: <140 mg/dL before meals <180 mg/dL all other times of the day Specimen Anatomical Collection Method Collection Time Receive d Time (Source) Location / / Volume Laterality Blood specimen 07/05/2017 10:05 7 (specimen) PM EST 10:05 PM EST Daphne Shahid MD POINT OF CARE TEST ORDERABLE S Performing Organization Address City/State/[place] [address] (ABNORMAL) POCT Glucose (07/05/2017 9:02 PM EST) P athologist Signature POC Glucose 301 (H) 65 - 199 [place] [facility] mg/dL [facility] Comment: Supplemental [...] Address City/State/ZIP Code Phon e Number [place] [id number]OS[address] Drive XR Chest PA or [...] 474 ms MUSE SYSTEM (Bezet) Calculated P [place]ps[place] 50 degrees MUSE SYSTEM Calculated R [place] -28 degrees MUSE SYSTEM Calculated T [place] 90 degrees MUSE SYSTEM INTERPRETATION Sinus tachycardia [...] (ABNORMAL) Differential, Automated (07/05/2017 8:20 PM EST) [facility] gist Method Time Signature Neutrophils % 88.4 % [facility] LABORATORY Neutr Abs (ANC) 9.08 (H) 1.70 - [facility] 6.10 [facility] x10(3)/[facility] LABORATORY Lymphocytes % 7.0 % [facility] LABORATORY Lymphocytes Abs 0.7 (L) 0.9 - 3.2 [facility] x10(3)/[facility] LABORATORY Monocytes % 3.7 % [facility] LABORATORY Monocyte Abs 0.4 0.3 - 0.9 [facility] x10(3)/[facility] LABORATORY Eosinophils % 0.1 % [facility] LABORATORY Eosinophils Abs 0.0 0.0 - 0.4 [facility] x10(3)/[facility] LABORATORY Basophils % 0.2 % [facility] LABORATORY Basophils Abs 0.0 0.0 - 0.1 [facility] x10(3)/[facility] LABORATORY Immature Gran % 0.60 [...] Organization Address City/State/[place] [address] (ABNORMAL) Hemogram (07/05/2017 8:20 PM EST) Analysis Performed At Patho logist Time Signature WBC 10.3 (H) 4.0 - 9.5 [facility] x10(3)/[facility] LABORATORY RBC 4.64 4.58 - [facility] 5.54 [facility] x10(6)/[facility] LABORATORY Hemoglobin 14.1 13.7 - [facility] 16.5 gm/dL [facility] LAB[facility]ORY Hematocrit 40.8 40.5 [facility] 48.5 % [facility] MCV 87.9 82.9 - [facility] 93.1 [facility] LABORATORY MCH 30.4 27.5 - [facility] 32.1 pg [facility] MCHC 34.6 32.0 - [facility] 35.7 gm/dL [facility] Platelets 204 145 - 357 [facility] x10(3)/[facility] LABORATORY RDWSD 46.1 (H) 36.0 - [facility] 45.0 [facility] LABORATORY RDWCV 14.5 (H) 11.4 - [facility] 13.8 % [facility] LABORATORY MPV 9.7 7.6 - 12.9 [facility] LABORATORY nRBC % Auto 0.0 % [facility] LABORATORY nRBC Abs Auto 0.000 0.000 - [facility] 0.000 [facility] x10(3)/[facility] LABORATORY Specimen Anatomical Collection Method Collection Time Receive d Time (Source) Location / / Volume Laterality Blood specimen 07/05/2017 8:20 PM 017 8:27 (specimen) EST PM EST Resulting Agency Comment Spec In Lab Daphne Shahid MD HEMATOLOGY ORDERABLES Performing Organization Address [facility]/ZIP [place] [address] APTT (07/05/2017 8:20 PM EST) athologist Signature PTT 32 25 - [address] [facility] LABORATORY Comment: The recommended therapeutic range for fu ll dose, unfractionated heparin at [facility] is 80 ? [...] Shahid MD HEMATOLOGY ORDERABLES Performing Organization Address [facility] [place] [address] (ABNORMAL) Cardiac Enzymes (LEB/CGP) (07/05/2017 8:20 PM EST) athologist Signature Troponin-T 2.11 (H) 0.00 - [facility] 0.00 ng/mL [facility] LABOR[facility] Comment: The 99th percentile [...] additional sample may be indicated. Reference: Third [place] Definition of Myocardial Infarction. Journal of the [place] [employer] 2012;60:1581-98 CK, Total 149 0 - 200 unit/L [facility] LABORATORY Specimen Anatomical Collection Method Collection Time Receive d Time (Source) Location / / Volume Laterality Blood specimen 07/05/2017 8:20 PM 017 8:27 (specimen) EST PM EST Resulting Agency Comment Spec In Lab Daphne Shahid MD CHEMISTRY ORDERABLES Performing Organization Address City/[facility]/ZIP [place] [address] (ABNORMAL) Magnesium (07/05/2017 8:20 PM EST) P athologist Signature Magnesium 0.68 (L) 0.69 - 1.07 [facility] mmol/L [facility] Specimen Anatomical Collection Method Collection Time Receive d Time (Source) Location / / Volume Laterality Blood specimen 07/05/2017 8:20 PM 017 8:27 (specimen) EST PM EST Resulting Agency Comment Spec In Lab Daphne Shahid MD CHEMISTRY ORDERABLES Performing Organization Address City/[facility]/[place]IP [place] [address] (ABNORMAL) Basic Metabolic Panel (non-fasting) (07/05/2017 8:20 PM EST) P athologist Signature Glucose Lvl 321 (H) 65 - 199 [facility] mg/dL [facility] Comment: Diabetes: >=200 mg/dL [...] [facility] Estimated GFR >60 >=60 [facility] Comment: The reported eGFR should be multiplied b y 1.2 for patients. The MDRD is not an appropriate measure o f renal function for patients with body mass extremes or in patients with acute kidney failure. http://Askem/DHnkdep http://Askem/DHnkf Specimen Anatomical Collection Method Collection Time Receive d Time (Source) Location / / Volume Laterality Blood specimen 07/05/2017 8:20 PM 017 8:27 (specimen) EST PM EST Resulting Agency Comment Spec In Lab Daphne Shahid MD CHEMISTRY ORDERABLES Performing Organization Address City/[facility]/[place] [address] (ABNORMAL) POCT Glucose (07/05/2017 7:32 PM EST) P athologist Signature POC Glucose 296 (H) 65 - 199 [facility] mg/dL [facility] Comment: Supplemental [...] City/[facility]/ZIP [place] [address] CARDIAC CATHETERIZATION (07/05/2017 6:47 PM EST) Specimen (Source) Anatomical Location Collection Method / Collectio n Time Received Time / Laterality Volume Narrative CARDIOMAC SYSTEM - 07/05/2017 7:27 PM ES T ?[facility] ? Cardiac Cathete rization/Intervention Report ? Patient Name: Natalya, Gregory ? Procedure Date: 07/05/2017 ? A #: [id number] ? Primary Physician: Jet Mckenna ? Case #: [id number] ? File Name: [id number] ? Catheterization Order Number: [id number] ? [facility] ? Final Report [place], [place] ? Patient Name: ? Gregory Natalya ?ID#: ?[id number] ? : ?1945 ? Procedure Date: ? [...] presented with: non -STEMI (w/i 7 days). [place] ?Cardiovascular Society angina c lass was IV. [...] site angio graphy and IABP insertion in chemical lab supervisor. ? Jet Mckenna M.D. ? Electronically Signed by: Jet bunch M.D. ? Report Finalized: 07/05/2017 ??19:23 ? Report Last Ammended: 10/26/2017 ??10:29 ? Procedure Note Jet Mckenna MD - 10/26/2017Formatt ing of this note might be different from the original. [facility] Cardiac Catheterization/Intervention Re port Patient Name: Gregory Hoang Procedure Date: 07/05/2017 A #: [id number] Primary Physician: Jet Mckenna Case #: [id number] File Name: [id number] Catheterization Order Number: [id number] [facility] Final Report [place], [place] Patient Name: Gregory Hoang ID#: [id number] 3- : 1945 Procedure Date: July 05, [...] of this procedure, the patient was designa vlda as ASA Class III. Patient Status at Catheterization: The patient presented with: non-STEMI ( w/i 7 days). [place] [employer] angina class was IV. No [...] site angiograph y and IABP insertion in chemical lab supervisor. Jet Mckenna M.D. Electronically Signed by: Jet [...] E ? (Age): 1945(72y) Med Rec#: ? [id number] ?Sex: ?M ? Site Loc: ? [facility] ?Ht / Wt: ??173(cm)/86(kg) Pt. Loc: ?[facility] ? BSA: ?2 Study Date: ?? 07/05/2017 ?Pt. Type: Inpatient Tape: ? Referring: Daphne Shahid ([id number]) Referring: MANDA ALCANTAR Reading: Blade Preston ([id number]) Athletic Monitor: Dayami Paula BA, [facility] Diagnosis: *ICD-10-PCS Non-ST elevation (NSTEMI) [...] E-wave Vmax ?0.8 ?m/sec ? MV deceleration [id number] ?msec ? MV A-wave Vmax ?0.8 ?m/sec [...] ? Mid-Inferior ?Akinetic ? Mid-Inferoseptal ?Hypokinetic ? [place]-Septal ? Akinetic ? [place]-Anterior ? Hypokinetic ? [place]-Lateral ?Hypokinetic ? [place]-Inferior ? Akinetic ? [place]-Tip ?Akinetic ? This report has been electronically sign ed by: _ Blade Preston MD ? 07/06/2017 08 :53:15 Images reviewed and interpretation verif ied [facility] Cardiac Ultrasound Laboratory Procedure Note Blade Preston MD - 07/06/2017Formatt ing of this note might be different from the original. Procedure: Transthoracic Echocardiogram Patient: NATALYA MCBRIDE(Age): [birth year]72y) Med Rec#: [id number] Sex: M Site Loc: [facility] Ht / Wt: 173(cm)/86(kg) Pt. Loc: [facility] BSA: 2 Study Date: 07/05/2017 Pt. Type: Inpatie nt Tape: Referring: Daphne Shahid ([id number]) Referring: MANDA ALCANTAR Reading: Blade Preston ([id number]) Athletic Monitor: Dayami Paula BA, [facility] Diagnosis: *ICD-10-PCS Non-ST elevation (NSTEMI) [...] MV E-wave Vmax 0.8 m/sec MV deceleration [id number] msec MV A-wave Vmax 0.8 m/sec MV [...] Hypokinetic Mid-Posterolateral Hypokinetic Mid-Inferior Akinetic Mid-Inferoseptal Hypokinetic [place]-Septal Akinetic [place]-Anterior Hypokinetic [place]-Lateral Hypokinetic [place]-Inferior Akinetic [place]-Tip Akinetic This report has been electronically [...] LABORATORY Neutr Abs (ANC) 5.26 1.70 - [facility] 6.10 [facility] x10(3)/[facility] LABORATORY Lymphocytes % 13.3 % [facility]OR[facility] Lymphocytes Abs 0.9 0.9 - 3.2 [facility] x10(3)/[facility] LABORATORY Monocytes % 8.2 % [facility] LABOR[facility]ORY Monocyte Abs 0.6 0.3 - 0.9 [facility] x10(3)/[facility] LABORATORY Eosinophils % 0.7 % [facility]ORY Eosinophils Abs 0.0 0.0 - 0.4 [facility] x10(3)/[facility] LABORATORY Basophils % 0.4 % [facility] LABORATORY Basophils Abs 0.0 0.0 - 0.1 [facility] x10(3)/[facility] LABORATORY Immature Gran % 0.40 % [...] Melisa Gran Abs 0.03 0.00 - 0.04 x10(3)/[facility] Y [facility] LABORATORY Specimen Anatomical Collection Method Collection Time Receive d Time (Source) Location / / Volume Laterality Blood specimen 07/05/2017 4:55 PM 017 5:24 (specimen) EST PM EST Resulting Agency Comment Spec In Lab Daphne Shahid MD HEMATOLOGY ORDERABLES Performing Organization Address City/State/[place] [address] (ABNORMAL) Hemogram (07/05/2017 4:55 PM EST) Analysis Performed At Patho logist Time Signature WBC 6.8 4.0 - 9.5 [facility] x10(3)/[facility] LABORATORY RBC 4.67 4.58 - [place] ZHAORYAN 5.54 [facility] x10(6)/[facility] LABORATORY Hemoglobin 14.0 13.7 - [facility] 16.[facility] gm/dL [facility] Hematocrit 41.0 40.5 - [facility] 48.5 % [facility] MCV 87.8 82.9 - [facility] 93.1 [facility] LABORATORY MCH 30.0 27.5 - [facility] 32.1 pg [facility] MCHC 34.1 32.0 - [facility] 35.7 gm/dL [facility] Platelets 197 145 - 357 [facility] x10(3)/[facility] LABORATORY RDWSD 46.4 (H) 36.0 - [facility] 45.0 [facility] LABORATORY RDWCV 14.5 (H) 11.4 - [facility] 13.8 % [facility] MPV 9.7 7.6 - 12.9 [facility] LABORATORY nRBC % Auto 0.0 % [facility] LABORATORY nRBC Abs Auto 0.000 0.000 - [facility] 0.000 [facility] x10(3)/[facility] LABORATORY Specimen Anatomical Collection Method Collection Time Receive d Time (Source) Location / / Volume Laterality Blood specimen 07/05/2017 4:55 PM 017 5:24 (specimen) EST PM EST Resulting Agency Comment Spec In Lab Daphne Shahid MD HEMATOLOGY ORDERABLES Performing Organization Address City/State/[place] [address] (ABNORMAL) Cardiac Enzymes (LEB/CGP) (07/05/2017 4:55 PM EST) P athologist Signature Troponin-T 1.69 (H) 0.00 - [facility] 0.[facility] ng/mL [facility] Comment: The 99th percentile [...] additional sample may be indicated. Reference: Third [place] Definition of Myocardial Infarction. Journal of the [place] [employer] 2012;60:1581-98 CK, Total 191 0 - 200 unit/L [facility] Specimen Anatomical Collection Method Collection Time Receive d Time (Source) Location / / Volume Laterality Blood specimen 07/05/2017 4:55 PM 017 5:56 (specimen) EST PM EST Resulting Agency Comment Spec In Lab Daphne Shahid MD CHEMISTRY ORDERABLES Performing Organization Address City/State/[place] [address] (ABNORMAL) pro-Brain Natriuretic Peptide (07/05/2017 4:55 PM EST) P athologist Signature ProBNP 1,598 (H) <=[address] [facility] [address] [facility] pg/mL [facility] Specimen Anatomical Collection Method Collection Time Receive d Time (Source) Location / / Volume Laterality Blood specimen 07/05/2017 4:55 PM 017 5:24 (specimen) EST PM EST Resulting Agency Comment Spec In Lab Daphne Shahid MD CHEMISTRY ORDERABLES Performing Organization Address City/State/[place] [address] [facility] [address] Magnesium (07/05/2017 4:55 PM EST) athologist Signature Magnesium 0.78 0.69 - 1.07 [facility] mmol/L [facility] Specimen Anatomical Collection Method Collection Time Receive d Time (Source) Location / / Volume Laterality Blood specimen 07/05/2017 4:55 PM 017 5:24 (specimen) EST PM EST Resulting Agency Comment Spec In Lab Daphne Shahid MD CHEMISTRY ORDERABLES Performing Organization Address City/State/ZIP Code Phon e Number [address] (ABNORMAL) Basic Metabolic Panel (non-fasting) (07/05/2017 4:55 PM EST) athologist Signature Glucose Lvl 230 (H) 65 - 199 [facility] mg/dL [facility] Comment: Diabetes: >=200 mg/dL [...] [facility] Estimated GFR >60 >=60 [facility] Comment: The reported eGFR should be multiplied b y 1.2 for patients. The MDRD is not an appropriate measure o f renal function for patients with body mass extremes or in patients with acute kidney failure. http://[employer].com/DHnkdep http://[employer].com/DHMCnkf Specimen Anatomical Collection Method Collection Time Receive d Time (Source) Location / / Volume Laterality Blood specimen 07/05/2017 4:55 PM 017 5:24 (specimen) EST PM EST Resulting Agency Comment Spec In Lab Daphne Shahid MD CHEMISTRY ORDERABLES Performing Organization Address City/[facility] [place] [address] (ABNORMAL) APTT (07/05/2017 4:55 PM EST) P athologist Signature PTT 41 (H) 25 - [address] [facility] Comment: The recommended therapeutic range for fu ll dose, unfractionated heparin at [facility] is 80 ? [...] Shahid MD HEMATOLOGY ORDERABLES Performing Organization Address City/[facility]/[place] [address] (ABNORMAL) POCT Glucose (07/05/2017 4:53 PM EST) P athologist Signature POC Glucose 208 (H) 65 - 199 [facility] mg/dL [facility] Comment: Supplemental [...] City/[facility]/ZIP [place] [address] EKG 12 Lead (07/05/2017 4:32 PM EST) Component Value Ref Range Test Analysis Performed Pathologis t Method Time At Signature Ventricular rate 97 BPM MUSE SYSTEM Atrial Rate 97 BPM MUSE SYSTEM P-R Interval 148 ms MUSE SYSTEM QRS Duration 96 ms MUSE SYSTEM Q-T Interval 364 ms MUSE SYSTEM QTC Calculated 462 ms MUSE SYSTEM (Bezet) Calculated P Gy[place] 48 degrees MUSE SYSTEM Calculated R [place] -33 degrees MUSE SYSTEM Calculated T [place] 98 degrees MUSE SYSTEM INTERPRETATION Normal sinus [...] atherosclerosis of unspecified type of vessel, [place] or graft Cardiomyopathy, ischemic Other specified forms [...] in dextrose 5% 250 mL EST infusion (DRY DIP WORKER) CONTINUOUS PRN, Starting on Wed07/05/17 at 1837, [...] 400 mg 0841 (Given - Provider: Em Jnoes RN) 0922 (Given - Provider: Myrna triplett [...] RN) 0840 (See Alternative - Provider: George oJnes RN)0900 (Not Given - Provider: Em Jones [...] mL 0530 (Not Given - Pro vider: Cramen Berry RN - Reason: See comment - [...]
Routine documented in this encounter Care Teams Pinking Sewing Machine Operator Relationship Specialty Start Date End Date Lovely Vicente MD PCP - General 04/16/15 [facility] [address] [place] [address] documented as of this encounter
--- OUTSIDE RECORDS SUMMARY | 2022-03-06 08:16 | XMS_ITS | Encounter Summary ---
:1945 Author Organization [facility] [place] [address] Care Team Providers Name Role Phone Angela Holliday APRN Primary Care Provider Encounter Details Date Type Department Care Team Description 04/05/2013 [place] [address] Social History Tobacco Use Types Packs/Day Years Used Date Former Smoker Alcohol Use Standard Drinks/Week Comments No 0 (1 standard drink = 0.6 oz pure alcoho l) Sex Assigned at Date Recorded Not on file documented as of this encounter Plan of Treatment Upcoming Encounters Date Type Specialty Care Team Description 03/26/2022 Office Visit Cardiology Vitaliy Nobles MD [facility] MEDICAL [facility] ER [address] TADE[address] [place], [place] [address] (Wo rk) 06/10/2022 Office Visit Dermatology Laura Scherer MD [facility] ER DR TEJA [facility] [place] [place] [address] (Wo rk) documented as of this encounter Visit Diagnoses Not on filedocumented in this encounter Care Teams Bow Maker Relationship Specialty Start Date End Date Angela Holliday APRN PCP - General 01/25/13 04/15/15 4 [place] [address] documented as of this encounter
--- OUTSIDE RECORDS SUMMARY | 2022-03-06 08:16 | XMS_ITS | Encounter Summary ---
:1945 Author Organization [facility] [place] [address] Care Team Providers Name Role Phone Angela Holliday APRN Primary Care Provider Reason for Visit Reason Comments Other Encounter Details Date Type Department Care Team Description 08/01/2013 Telephone Dermatology at [facility] Rigoberto Garcia III, [address] [place] [address] [facility] [phone] TEJA MARIE-DERMAT [place], [place] [address] (Wo rk) Social History Tobacco [...] them. Component Value Surgical Pathology Final Report [facility] Provider: RIGOBERTO GARCIA III Pt. Name: DON HOANG Acc #: [id number] Pt. 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 CR-0 08/01/13 BJM 08/01/13 Verified by: Ian STRANGE, PhD, [facility] Dermatopathologist (Electronic Signature) The attending pathologist [...] MD [facility] [address] T[address] [place], [place] [address] (Wo rk) 06/10/2022 Office Visit Dermatology Laura Scherer MD [facility] [address] TEJA MARIE-DERMAT [place], [place] [address] (Wo rk) documented as of this encounter Visit Diagnoses Not on filedocumented in this encounter Care Teams Exercise Planner Relationship Specialty Start Date End Date Angela Holliday APRN PCP - General 01/25/13 04/15/[address] [place] [address] documented as of this encounter
--- OUTSIDE RECORDS SUMMARY | 2022-03-06 08:16 | XMS_ITS | Encounter Summary ---
:1945 Author Organization [facility] [place] [address] Care Team Providers Name Role Phone Lovely Vicente MD Primary Care Provider Reason for Visit Reason Comments Skin Lesion Encounter Details Date Type Department Care Team Description 11/24/2016 [facility] uncertain behavior of skin; Road IIIMD Pigmented skin lesion of uncertain natur e; [address] [facility] [place] of [place] [address] [facility]-DERMATOLGY [place], [place] [address] Social History Tobacco Use Types [...] or concerns, please call the office at [phone]. If it is after 5PM, or a holiday or weekend, please call [phone] and ask for the Cloth Brushing And Sueding Supervisor on-call. documented in this encounter Progress Notes [...] 71 y.o. year old male.Established patient of ITema. Last seen 06/05/16. Here today for new [...] MD [facility] [address] T[address] [place], [place] [address] (Wo lissa) 06/10/2022 Office Visit Dermatology Laura Scherer MD [facility] MEDICAL [facility] [address] TE[address] GR-DERMAT [place], [place] [address] (Wo lissa) documented as of [...] Component Value Ref Test Analysis Performed At [facility] Range Method Time Signature Surgical [id number] ?Location: [facility] Report The signing pathologist has (i) [...] Organization Address City/State/[place] [address] Specimen to Pathology (NON-OR) (11/24/2016 8:28 AM EDT) Specimen Anatomical Collection Method Collection Time Receive d Time (Source) Location / / Volume Laterality AP Specimen 11/24/2016 8:28 AM 7 9:29 EDT AM EDT Narrative [facility] - 11/24/2016 9:29 AM EDT Specimen requisition ordered. ??Separate Pathology report to follow Resulting Agency Comment Spec In Lab Rigoberto Garcia III, MD PATHOLOGY/CYTOLOGY ORDERABLE S Performing Organization Address City/State/[place] [address] documented in this encounter Visit Diagnoses Diagnosis Neoplasm of uncertain behavior of skin Pigmented skin lesion of uncertain natur e History of melanoma Personal history of malignant melanoma o f skin documented in this encounter Care Teams Picture Framer Relationship Specialty Start Date End Date Lovely Vicente MD PCP - General 04/16/[address] [place] [address] documented as of this encounter
--- OUTSIDE RECORDS SUMMARY | 2022-03-06 08:16 | XMS_ITS | Encounter Summary ---
:1945 Author Organization [facility] [place] [address] Care Team Providers Name Role Phone Lovely Vicente MD Primary Care Provider Encounter Details Date Type Department Care Team Description 11/28/2016 Telephone Dermatology at [facility] Rigoberto Garcia III, [address] [place] [address] [facility] [phone] [facility] SIM[facility]N-DERMAT [place], [place] [address] (Wo rk) Social History Tobacco [...] MD [facility] [address] [place], [place] [address] (Wo rk) 06/10/2022 Office Visit Dermatology Laura Scherer MD [facility] DR TEJA MARIE-DERMAT [place], [place] [address] (Wo rk) documented as of this encounter Visit Diagnoses Not on filedocumented in this encounter Care Teams Singe Machine Operator Relationship Specialty Start Date End Date Lovely Vicente MD PCP - General 04/16/[address] [place] [address] [address] [place] [address] documented as of this encounter
--- OUTSIDE RECORDS SUMMARY | 2022-03-06 08:16 | XMS_ITS | Encounter Summary ---
:1945 Author Organization [facility] [place] [address] Care Team Providers Name Role Phone Angela Holliday APRN Primary Care Provider Reason for Visit Reason Comments Skin Check Encounter Details Date Type Department Care Team Description 07/31/2013 Follow-Up Dermatology at Rigoberto Forman eoplasm of unspecified nature of bone, soft tissue, and skin (Primary Dx); Abdelrahman HOOPER MD Seborrheic psoriasis- scalp and ingtergl uteal area; [address] [facility] Atypical [place] [address] [facility] [place], [place] [address] (Wo rk) Social History Tobacco [...] encounter. Rigoberto Albarran MD Section of Dermatology [facility] documented in this encounter Plan of Treatment Upcoming Encounters Date Type Specialty Care Team Description 03/26/2022 Office Visit Cardiology Vitaliy Nobles MD [facility] [address] TADE[address] [place], [place] [address] (Wo lissa) 06/10/2022 Office Visit Dermatology Laura Scherer MD [facility] DR TEJA GR-DERMAT OGY [place], [place] [address] (Mikayla alcaraz) Scheduled Orders Name [...] Analysis Performed At [facility] gist Range Method Time Signature Surgical CERNER Pathology ? [facility] Report ? Provider: ?? RIGOBERTO ALBARRAN III Pt. Name: ?? GREGORY HOANG ?A ? Acc #: ?[id number] ? Pt. ? Col Date: ?? 07/31/2013 [...] 0.9 x 0.8 x 0.2 cm. ? [facility] ? Provider: ?? DEION III, RIGOBERTO Pt. Name: ?? GREGORY HOANG ?A ? Acc #: ?[id number] ? Pt. ? Col Date: ?? 07/31/2013 [...] MD PATHOLOGY/CYTOLOGY ORDERABLE S Performing Organization Address City/[facility]/[place] [address] CERNER MILLENNIUM Specimen to [...] MD PATHOLOGY/CYTOLOGY ORDERABLE S Performing Organization Address City/[facility] [place] [address] CERNER MILLENNIUM documented in this encounter Visit Diagnoses Diagnosis Neoplasm of unspecified nature of bone, soft tissue, and skin - Primary Seborrheic psoriasis- scalp and ingtergl uteal area Other psoriasis Atypical nevus of abdominal wall Benign neoplasm of skin of trunk, except scrotum documented in this encounter Care Teams Electrician Constructor Supervisor Relationship Specialty Start Date End Date Angela Holliday APRN PCP - General 01/25/13 04/15/[address] [place] [address] documented as of this encounter
--- OUTSIDE RECORDS SUMMARY | 2022-03-06 08:16 | XMS_ITS | Encounter Summary ---
:1945 [place] [address] Care Team Providers Name Role Phone Lovely Vicente MD Primary Care Provider Reason for Visit Reason Onset Date Comments Other 12/09/2016 RESULTS Encounter Details Date Type Department Care Team Description 12/09/2016 Telephone Dermatology at [facility] Halima Cadet MD Other (RESULTS) [address] [facility] [place] [address] [facility] [phone] [place], [place] [address] (Wo rk) Social History Tobacco [...] EDT Spoke with patient's , Kisha (personal primary care sales representative). I advised her Don's pathology [...] back. She can be reached back at [phone] documented in this encounter Plan of Treatment Upcoming Encounters Date Type Specialty Care Team Description 03/26/2022 Office Visit Cardiology Vitaliy Nobles MD [facility] [address] T[address] [place], [place] [address] (Wo rk) 06/10/2022 Office Visit Dermatology Laura Scherer MD [facility] DR LEZAMA RD-DERMAT [facility] [place] [place] [address] (Wo rk) documented as of this encounter Visit Diagnoses Not on filedocumented in this encounter Care Teams Neckties Painter Relationship Specialty Start Date End Date Lovely Vicente MD PCP - General 04/16/[address] [place] [address] documented as of this encounter
--- OUTSIDE RECORDS SUMMARY | 2022-03-06 08:16 | XMS_ITS | Encounter Summary ---
:1945 Author Organization [facility] [address] Care Team Providers Name Role Phone Angela Holliday APRN Primary Care Provider Reason for Visit Reason Comments Benign Prostatic Hypertrophy Encounter Details Date Type Department Care Team Description 11/28/2013 [place] [facility] Blade Smith, Urinary retention (Primary D x); [facility] BPH (benign prostatic hyperplasia) [place] [address] UROLOGY DEPT [place], [place] [address] (Wo rk) Social History Tobacco [...] Nobles MD [facility] CARDIOLOGY [place], [place] [address] (Wo rk) 06/10/2022 Office Visit Dermatology Laura Scherer MD [facility] DR TEJA GR-DERMAT [facility] [place] [place] [address] (Wo rk) documented as [...] City/State/ZIP Code Phon [place] [address] [facility] documented in this encounter Visit Diagnoses Diagnosis Urinary retention - Primary Retention of urine, unspecified BPH (benign prostatic hyperplasia) Unspecified hyperplasia of prostate with out urinary obstruction and other lower urinary tract symptoms (LUTS) documented in this encounter Care Teams Transit Mechanic Relationship Specialty Start Date End Date Angela Holliday APRN PCP - General 01/25/13 04/15/[address] [place] [address] documented as of this encounter
--- OUTSIDE RECORDS SUMMARY | 2022-03-06 08:16 | XMS_ITS | Encounter Summary ---
:1945 Author Organization [facility] [address] Care Team Providers Name Role Phone Lovely Vicente MD Primary Care Provider Reason for Visit Reason Onset Date Comments Medication Refill 12/24/2016 Encounter Details Date Type Department Care Team Description 12/24/2016 Refill Endocrinology at [facility] Luz Stallings MD [facility] [place] [address] ENDOCRINOLOGY DEPT [phone] [place], [place] [address] (Wo rk) Social History Tobacco [...] Nobles MD [facility] DR TADE[address] [place], [place] [address] (Wo rk) 06/10/2022 Office Visit Dermatology Laura Scherer MD [facility] DR TEJA GR-DERMAT [place], [place] [address] (Wo rk) documented as of this encounter Visit Diagnoses Not on filedocumented in this encounter Care Teams Sizer Machine Relationship Specialty Start Date End Date Lovely Vicente MD PCP - General 04/16/[address] [place] [address] documented as of this encounter
--- OUTSIDE RECORDS SUMMARY | 2022-03-06 08:16 | XMS_ITS | Encounter Summary ---
:1945 Author Organization [facility] [address] Care Team Providers Name Role Phone Som Holliday APRN Primary Care Provider Encounter Details Date Type Department Care Team Description 04/11/2014 Procedure visit [facility]ology at [facility], CONV Esophageal reflux [facility] Luz Winchester RN (Primary Dx) [place] [address] Social History Tobacco Use Types Packs/Day Years Used Date Former Smoker Alcohol Use Standard Drinks/Week Comments No 0 (1 standard drink = 0.6 oz pure alcoho l) Sex Assigned at Date Recorded Not on file documented as of this encounter Progress Notes Adalid Can MD - 04/13/2014 3:43 PM EDT ESOPHAGEAL MANOMETRY Don Fatima Male, 69 yrs, 1945 PCP: SOM HOLLIDAY STACKER DRIVER: NONE STUDY DATE: 04/11/14 PROVIDER: Adal[place] ([id number]) INDICATION Reflux; preoperative evaluation. METHODS Stationary esophageal manometry was performed with the Personalis esophageal motility system utilizing the Polygram software [...] of the esophagus. Adalid Can, PhD, MD spraying machine operator, [employer] Section of Gastroenterology and Hepatology [facility] [place] [address] V: [phone] F: [phone] [facility]/gabriela CC/EC: PCP - staff msg copy 04/13/14 Henrique Taylor MD - fax copy 04/13/14 Luz Keller RN - 04/11/2014 8:14 AM EDT Esophageal manometry performed without difficulty and Was well tolerated. documented in this encounter Plan of Treatment Upcoming Encounters Date Type Specialty Care Team Description 03/26/2022 Office Visit Cardiology Vitaliy Nobles MD [facility] ER [address] TADEO [place], [place] [address] (Wo rk) 06/10/2022 Office Visit Dermatology Laura Scherer MD [facility] DR TEJA GR-DERMAT [facility] [place], [place] [address] (Wo rk) documented as of this encounter Visit Diagnoses Diagnosis Esophageal reflux - Primary documented in this encounter Care Teams Salvage Laborer Relationship Specialty Start Date End Date Som Holliday APRN PCP - General 01/25/13 04/15/[address] [place] [address] documented as of this encounter
--- OUTSIDE RECORDS SUMMARY | 2022-03-06 08:16 | XMS_ITS | Encounter Summary ---
:1945 Author Organization [facility] [place] [address] Care Team Providers Name Role Phone Angela Sotelo APRN Primary Care Provider Encounter Details Date Type Department Care Team Description 01/16/2014 Surgery [facility]ology [place] [facility] Nohemi Jaimes, COLONOSCOPY, [facility] Jorge mcnamara MD POLYPECTOM[place], [place] [address] [facility] SNARE ([facility] [phone] DR Cintron) GASTROENTEROLOGY DEPT. [place], [place] [address] Social History Tobacco Use Types [...] you need to be checked. Wednesday-Wednesday Clinic [phone] 8a-5p Same Day Endo [phone] 7a-8p Otherwise contact [phone] and ask to speak to the laborer/grade check customer support professional Follow up care is a shelton part [...] Jaimes MD - 01/16/2014 9:49 AM EDT [facility] Operative Note Patient Name: Gregory Fatima : [id number] MR#: [id number] Case Date: 01/16/2014 Surgeon: Surgeon(s) and Role: * Nohemi Jaimes MD - Primary Preoperative diagnosis: 5 yr surv. Full procedure note is documented under the Procedure section of eDH. documented in this encounter Plan of Treatment Upcoming Encounters Date Type Specialty Care Team Description 03/26/2022 Office Visit Cardiology Vitaliy Nobles MD [facility] MEDICAL [facility] ER DR TADEO [place], [place] [address] (Wo rk) 06/10/2022 Office Visit Dermatology Laura Scherer MD [facility] MEDICAL [facility] ER DR TEJA GR-DERMAT [place], [place] [address] (Wo rk) documented as [...] Surgical Pathology Report (01/16/2014 9:53 AM EDT) [facility] Method Time Signature Surgical CERNER Pathology ? [facility] Report ? Provider: ?? SHREE, NOHEMI Gonzalez ?Pt. Name: ?? SURINDER ALEGRE, GREGORY Mccollum ? Acc #: ?[id number] ?Pt. MRN: ?[id number] ? Col Date: ?? 4 ? /Sex: [...] Address City/State/ZIP Code Phon e Number [address] CERNER MILLENNIUM Specimen to [...] Address City/Va Hospital/[place] [address] CERNER MILLENNIUM Specimen to [...] Organization Address City/State/[place] [address] CERNER MILLENNIUM COLONOSCOPY (01/16/2014 7:25 AM EDT) [facility] Method Time Signature COLONOSCOPY [facility] Endoscopy Patient Name: Gregory Fatima ? Procedure Date: 01/16/2014 7:25 AM ? N: [id number] ? Date of : 1945 ? Age: 68 ? Order #: [id number] ? Procedure: ? Colonoscopy Indications: ? High risk colon cancer surveillance : ? 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 dm on metformin with bs ~ 110 this ? am,s/p melanoma years ago, os a, ? goiter s/p surgery, p Providers: ? Nohemi Jaimes MD, Blanca xiong, ? RN, Jacquie Rennre RN Referring MD: ?Angela Sotelo MD Medicines: [...] 01/16/2014 7:25 AM EDT Angela Sotelo MACHINE STACKER GENERAL SURGICAL ORDERABLES Performing Organization Address City/State/ZIP [...] Routine documented in this encounter Care Teams Shot Blast Equipment Operator Relationship Specialty Start Date End Date Angela Sotelo APRN PCP - General 01/25/13 04/15/[address] [place] [address] documented as of this encounter
--- OUTSIDE RECORDS SUMMARY | 2022-03-06 08:16 | XMS_ITS | Encounter Summary ---
:1945 Author Organization [facility] [place] [address] Care Team Providers Name Role Phone MiyaLokeshAngela STACIE Primary Care Provider Encounter Details Date Type Department Care Team Description 01/16/2014 Hospital Encounter [facility]ology at [facility] Nohemi Jaimes, [facility] [place] [address] [facility] [phone] [place] GASTROENTEROLOGY DEPT. [place], [place] [address] Social History Tobacco Use Types [...] you need to be checked. Wednesday-Wednesday Clinic [phone] 8a-5p Same Day Endo [phone] 7a-8p Otherwise contact [phone] and ask to speak to the separator operator conservation engineer Follow up care is a shelton [...] Jaimes MD - 01/16/2014 9:49 AM EDT [facility] Operative Note Patient Name: Gregory Fatima : [id number] MR#: [id number] Case Date: 01/16/2014 Surgeon: Surgeon(s) and Role: * Nohemi Jaimes MD - Primary Preoperative diagnosis: 5 yr surv. Full procedure note is documented under the Procedure section of eDH. documented in this encounter Plan of Treatment Upcoming Encounters Date Type Specialty Care Team Description 03/26/2022 Office Visit Cardiology Vitaliy Nobles MD [facility] [address] TADE[address] [place], [place] [address] (Wo rk) 06/10/2022 Office Visit Dermatology Laura Scherer MD [facility] DR [address]-DERMAT [place], [place] [address] (Wo rk) documented as of [...] Surgical Pathology Report (01/16/2014 9:53 AM EDT) [facility] Method Time Signature Surgical CERNER Pathology ? [facility] Report ? Provider: ?? SHREE, NOHEMI Gonzalez ?Pt. Name: ?? SURINDER RT, GREGORY Mccollum ? Acc #: ?[id number] ?Pt. MRN: ?[id number] ? Col Date: ?? 4 ? /Sex: [...] Organization Address City/State/ZIP Code Phon e Number [address] [facility] Specimen [...] MD PATHOLOGY/CYTOLOGY ORDERABLE S Performing Organization Address City/[facility]/ZIP Code Phon e Number [address] [facility] Specimen to Pathology (surgical or derm) (01/16/2014 9:53 AM EDT) Specimen Anatomical Collection Method Collection Time Receive d Time (Source) Location / / Volume Laterality AP Specimen 01/16/2014 9:53 AM 4 9:53 EDT AM EDT Narrative RAKESH VILLALOBOSENNIUM - 01/16/2014 9:53 AM E DT Specimen requisition ordered. ??Separate Pathology report to follow Nohemi Jaimes MD PATHOLOGY/CYTOLOGY ORDERABLE S Performing Organization Address [facility]/State/[place] [address] CERNER MILLENNIUM COLONOSCOPY (01/16/2014 7:25 AM EDT) [facility] Method Time Signature COLONOSCOPY [facility] Endoscopy Patient Name: Gregory Fatima ? Procedure Date: 01/16/2014 7:25 AM ? N: [id number] ? Date of : 1945 ? Age: 68 ? Order #: [id number] ? Procedure: ? Colonoscopy Indications: ? High [...] Routine documented in this encounter Care Teams Area Captain Relationship Specialty Start Date End Date Angela Sotelo APRN PCP - General 01/25/13 04/15/[address] [place] [address] documented as of this encounter
--- OUTSIDE RECORDS SUMMARY | 2022-03-06 08:16 | XMS_ITS | Encounter Summary ---
:1945 Author Organization [facility] Address [facility] [place] [address] Care Team Providers Name Role Phone Lovely Vicente MD Primary Care Provider Reason for Visit Reason Comments Skin Check Encounter Details Date Type Department Care Team Description 11/05/2015 Office Visit Dermatology at [facility] Forman benign nevi; Abdelrahman HOOPER MD Lentigines; [address] [facility] History of melanoma; [place] [address] Skin exam for malignant neoplasm [phone] [facility] [place], [place] [address] Social History Tobacco Use [...] Diagnostic, Drum (ACCU-CHEK COMPACT TEST) Strip by [facility].(Non- Drug; Combo Route) route 2 times daily. [...] encounter. Rigoberto Garcia MD Section of Dermatology [facility] documented in this encounter Plan of Treatment Upcoming Encounters Date Type Specialty Care Team Description 03/26/2022 Office Visit Cardiology Vitaliy Nobles MD [facility] [address] [place], [place] [address] (Wo rk) 06/10/2022 Office Visit Dermatology Laura Scherer MD [facility] DR [address]-DERMAT [place], [place] [address] (Wo rk) documented as of this encounter Visit Diagnoses Diagnosis Multiple benign nevi Benign neoplasm of skin, site unspecifie d Lentigines Other dyschromia History of melanoma Personal history of malignant melanoma o f skin Skin exam for malignant neoplasm Screening for malignant neoplasm of the skin documented in this encounter Care Teams Medical Translator Relationship Specialty Start Date End Date Lovely Vicente MD PCP - General 04/16/[address] [place] [address] [address] [place] [address] documented as of this encounter
--- OUTSIDE RECORDS SUMMARY | 2022-03-06 08:16 | XMS_ITS | Encounter Summary ---
:1945 Author Organization [facility] [place] [address] Care Team Providers Name Role Phone Angela Holliday APRN Primary Care Provider Encounter Details Date Type Department Care Team Description 04/30/2014 Orders Only Endocrinology at [facility] Albertina Palmer, Thyroid cancer [facility] Jorge Boyer MD (Primary [place]) [place] [address] [facility] [phone] CENTER ENDOCRINOLOGY DEPT [place], [place] [address] Social History Tobacco Use Types [...] [facility] ER CARDIOLOGY [place], [place] [address] (Wo rk) 06/10/2022 Office Visit Dermatology Laura Scherer MD [facility] DR TEJA GR-DERMAT [place], [place] [address] (Wo rk) documented as of this encounter Visit Diagnoses Diagnosis Thyroid cancer - Primary Malignant neoplasm of thyroid gland documented in this encounter Care Teams Internetworking Technician Relationship Specialty Start Date End Date Angela Holliday APRN PCP - General 01/25/13 04/15/[address] [place] [address] documented as of this encounter
--- OUTSIDE RECORDS SUMMARY | 2022-03-06 08:16 | XMS_ITS | Encounter Summary ---
:1945 Author Organization [facility] [address] Care Team Providers Name Role Phone Angela Holliday STACIE Primary Care Provider Encounter Details Date Type Department Care Team Description 04/04/2013 Telephone Urology at [facility] Parker Sanchez MD [facility] [place] [address] UROLOGY DEPT [phone] [place], [place] [address] (Wo rk) Social History Tobacco [...] [facility] ER [address] CARLYLE [place] [address] (Wo rk) 06/10/2022 Office Visit Dermatology aLura Scherer MD [facility] ER DR [address]-DERMAT [place], [place] [address] (Wo rk) documented as of this encounter Visit Diagnoses Not on filedocumented in this encounter Care Teams Nursing Clerk Relationship Specialty Start Date End Date Angela Holliday APRN PCP - General 01/25/13 04/15/[address] [place] [address] documented as of this encounter
--- OUTSIDE RECORDS SUMMARY | 2022-03-06 08:16 | XMS_ITS | Encounter Summary ---
:1945 Author Organization [facility] [place] [address] Care Team Providers Name Role Phone Lovely Vicente MD Primary Care Provider Reason for Visit Reason Onset Date Comments Medication Refill 06/19/2016 Encounter Details Date Type Department Care Team Description 06/19/2016 Refill Endocrinology at [facility] Luz Stallings MD [facility] [place] [address] ENDOCRINOLOGY DEPT [phone] [place], [place] [address] (Wo rk) Social History Tobacco [...] MD [facility] DR T[address] [place], [place] [address] (Wo rk) 06/10/2022 Office Visit Dermatology Laura Scherer MD [facility] DR TEJA GR-DERMAT [place], [place] [address] (Wo rk) documented as of this encounter Visit Diagnoses Not on filedocumented in this encounter Care Teams Escape Wheel Tooth Cutter Relationship Specialty Start Date End Date Lovely Vicente MD PCP - General 04/16/[address] [place] [address] documented as of this encounter
--- OUTSIDE RECORDS SUMMARY | 2022-03-06 08:16 | XMS_ITS | Encounter Summary ---
:1945 Author Organization [facility] [place] [address] Care Team Providers Name Role Phone Lovely Vicente MD Primary Care Provider Reason for Visit Reason Onset Date Comments Pre Procedure Call 12/02/2016 Encounter Details Date Type Department Care Team Description 12/02/2016 Telephone Dermatology at [facility] Mira James LPN Pre Procedure Call [address] [place] [address] Social History Tobacco Use Types Packs/Day [...] Nobles MD [facility] [address] [place], [place] [address] (Wo rk) 06/10/2022 Office Visit Dermatology Laura Scherer MD [facility] DR [address]-DERMAT [facility] [place], [place] [address] (Wo rk) documented as of this encounter Visit Diagnoses Not on filedocumented in this encounter Care Teams Poundmaster Relationship Specialty Start Date End Date Lovely Vicente MD PCP - General 04/16/[address] [place] [address] documented as of this encounter
--- OUTSIDE RECORDS SUMMARY | 2022-03-06 08:16 | XMS_ITS | Encounter Summary ---
:1945 Author Organization [place] [address] Care Team Providers Name Role Phone Angela Holliday APRN Primary Care Provider Encounter Details Date Type Department Care Team Description 03/30/2013 Telephone General Surgery at [facility] Cliff Nevarez, [place] [address] Social History Tobacco Use Types Packs/Day [...] [facility] ER CARDIOLOGY [place], [place] [address] (Wo rk) 06/10/2022 Office Visit Dermatology Laura Scherer MD [facility] ER DR TEJA GR-DERMAT [place], [place] [address] (Wo rk) documented as of this encounter Visit Diagnoses Not on filedocumented in this encounter Care Teams Game Operator Relationship Specialty Start Date End Date Angela Holliday APRN PCP - General 01/25/13 04/15/[address] [place] [address] documented as of this encounter
--- OUTSIDE RECORDS SUMMARY | 2022-03-06 08:16 | XMS_ITS | Encounter Summary ---
:1945 Author Organization [facility] [place] [address] Care Team Providers Name Role Phone Lovely Vicente MD Primary Care Provider Reason for Visit Reason Comments Thyroid Cancer Encounter Details Date Type Department Care Team Description 06/05/2015 Office Visit Endocrinology at [facility] Albertina Prescott, History of papillary [facility] MD Luz adenocarcinoma of [facility] thyroid (Primary Dx) [place] [address] CENTER [phone] [place] [address] Social History Tobacco Use Types Packs/Day Years [...] the thyroid gland were obtained using a Jump On It ultrasound machine. All measurements are given as AP x Transverse x Longitudinal Right Lobe: Absent Left Lobe: Absent Isthmus: Absent Central/Lateral neck: no morphologically abnormal lymph nodes. Impression: No sonographic evidence of recurrence. LUZ PRESCOTT MD Gravity Prospecting Supervisorlayaway clerk Section of Endocrinology [facility] [...] Drum (ACCU-CHEK COMPACT TEST) Strip by [facility].(Non-Drug; Combo Route) route 2 [...] --f/u in 1 year LUZ PRESCOTT MD Gravity Prospecting Supervisorlayaway clerk Section of Endocrinology [facility] [...] Nobles MD [facility] DR [place]LE [place], [place] [address] (Wo rk) 06/10/2022 Office Visit Dermatology Laura Scherer MD [facility] DR TEJA GR-DERMAT [place], [place] [address] (Wo rk) documented as of [...] athologist Signature Thyroglobulin 0.6 <=54.9 CERNER ng/mL [facility] Comment: Interpret with caution. Tg [...] DALLAS et al. J Clin Endo Metab 1999;84:0800-4775). 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
--- OUTSIDE RECORDS SUMMARY | 2022-03-06 08:16 | XMS_ITS | Encounter Summary ---
:1945 Author Organization [facility] [place] [address] Care Team Providers Name Role Phone Lovely Vicente MD Primary Care Provider Encounter Details Date Type Department Care Team Description 09/03/2016 Office Visit Endocrinology at [facility] Maria Ines Stallings of [facility] [place] [address] [place] [address] ENDOCRINOLOGY DEPT [place], [place] [address] Social History Tobacco Use Types [...] to his magnesium pill. LUZ PRESCOTT MD Tile [employer]isher[employer]rtts Section of Endocrinology [facility] Luz Prescott MD - 09/03/2016 11:30 AM [...] sonographic evidence of recurrence. LUZ PRESCOTT MD Tile Finishercrtts Section of Endocrinology [facility] documented in this encounter Plan of Treatment Upcoming Encounters Date Type Specialty Care Team Description 03/26/2022 Office Visit Cardiology Vitaliy Nobles MD [facility] CARDIOLOGY [place], [place] [address] (Wo rk) 06/10/2022 Office Visit Dermatology Laura Scherer MD [facility] DR [address]-DERMAT OLOGY [place], [place] [address] (Wo rk) documented as of this encounter Results Thyroglobulin (09/07/2017 2:41 PM EST) athologist Signature Thyroglobulin 1.4 <=54.9 [facility] ng/mL [facility]OR[facility] Comment: Thyroglobulin levels may [...] Prescott MD CHEMISTRY ORDERABLES Performing Organization Address City/[facility]/ZIP Code Phon e Number [address] TSH (09/07/2017 2:41 PM EST) P athologist Signature TSH 3.93 0.27 - 4.20 KATALINA DAVIS mlU/ML [facility]OR[facility] Specimen Anatomical Collection Method Collection Time Receive d Time (Source) Location / / Volume Laterality Blood specimen 09/07/2017 2:41 PM 018 2:46 (specimen) EST PM EST Resulting Agency Comment Spec In Lab Luz Prescott MD CHEMISTRY ORDERABLES Performing Organization Address [facility] Phon e Number [address] Thyroglobulin (09/03/2016 11:07 AM EST) athologist Signature Thyroglobulin <0.4 <=54.9 KATALINA DAVIS ng/mL [facility] Comment: Interpret with caution. [...] BR et al. J Clin Endo Metab 1999;84:2872-8334). Assay performed using the DPC Immulite T [...] Organization Address City/State/[place] [address] TSH (09/03/2016 11:07 AM EST) P athologist Signature TSH 3.01 0.27 - 4.20 [facility] mcIU/mL [facility]OR[facility] Specimen Anatomical Collection Method Collection Time Receive d Time (Source) Location / / Volume Laterality Blood specimen 09/03/2016 11:07 7 (specimen) AM EST 11:22 AM EST Resulting Agency Comment Spec In Lab Luz Prescott MD CHEMISTRY ORDERABLES Performing Organization Address City/[facility]/[place] [address] documented in this encounter Visit Diagnoses Diagnosis Hx of papillary thyroid carcinoma Personal history of malignant neoplasm o f thyroid documented in this encounter Care Teams Vise Hand Relationship Specialty Start Date End Date Lovely Vicente MD PCP - General 04/16/[address] [place] [address] documented as of this encounter
--- OUTSIDE RECORDS SUMMARY | 2022-03-06 08:16 | XMS_ITS | Encounter Summary ---
:1945 Author Organization [facility] [place] [address] Care Team Providers Name Role Phone Lovely Vicente MD Primary Care Provider Reason for Visit Reason Comments Skin Check Encounter Details Date Type Department Care Team Description 06/05/2016 Office Visit Dermatology at [facility] istory of melanoma; Abdelrahman HOOPER MD Seborrheic keratosis; [address] [facility] [place] (actinic keratosis); [place] [address] Multiple nevi; [phone] [facility] [address]-DERMATOLGY [place], [place] [address] Social History Tobacco Use Types [...] Office Visit Cardiology Vitaliy Nobles MD [facility] ER DR TADEO [place], [place] [address] (Wo rk) 06/10/2022 Office Visit Dermatology Laura Scherer MD [facility] ER DR TEJA GR-DERMAT [facility] [place] [place] [address] (Wo rk) documented as of this encounter Visit Diagnoses Diagnosis History of melanoma Personal history of malignant melanoma o f skin Seborrheic keratosis Other seborrheic keratosis [place] (actinic keratosis) Actinic keratosis Multiple nevi Benign neoplasm of skin, site unspecifie d Scar Scar condition and fibrosis of skin documented in this encounter Care Teams Shipping And Receiving Operator Relationship Specialty Start Date End Date Lovely Vicente MD PCP - General 04/16/15 [facility] [address] [place] [address] documented as of this encounter
--- OUTSIDE RECORDS SUMMARY | 2022-03-06 08:16 | XMS_ITS | Encounter Summary ---
:1945 Author Organization [facility] [place] [address] Care Team Providers Name Role Phone Lovely Vicente MD Primary Care Provider Reason for Visit Reason Comments Skin Check Encounter Details Date Type Department Care Team Description 04/16/2015 Follow-Up Dermatology at [facility] x of melanoma of skin; Abdelrahman HOOPER MD Multiple benign nevi [address] [place] [address] [facility]-DERMATOLGY [place], [place] [address] (Wo rk) Social History Tobacco [...] Drum (ACCU-CHEK COMPACT TEST) Strip by [facility]Non- Drug; Combo Route) route 2 times daily. [...] encounter. Rigoberto Garcia MD Section of Dermatology [facility] documented in this encounter Plan of Treatment Upcoming Encounters Date Type Specialty Care Team Description 03/26/2022 Office Visit Cardiology Vitaliy Nobles MD [facility] CARDIOLOGY [place], [place] [address] (Wo rk) 06/10/2022 Office Visit Dermatology Laura Scherer MD [facility] C[facility] ER DR TEJA GR-DERMAT [place], [place] [address] (Wo rk) documented as of this encounter Visit Diagnoses Diagnosis Hx of melanoma of skin Personal history of malignant melanoma o f skin Multiple benign nevi Benign neoplasm of skin, site unspecifie d documented in this encounter Care Teams Fabric And Textile Factory Worker Relationship Specialty Start Date End Date Lovely Vicente MD PCP - General 04/16/[address] [place] [address] documented as of this encounter
--- OUTSIDE RECORDS SUMMARY | 2022-03-06 08:16 | XMS_ITS | Encounter Summary ---
:1945 Author Organization [facility] [place] [address] Care Team Providers Name Role Phone Lovely Vicente MD Primary Care Provider Encounter Details Date Type Department Care Team Description 09/03/2016 Laboratory Appointment Lab at [facility] Hx of papillary [facility] [place] [id number] Social History Tobacco Use Types Packs/Day Years [...] Cardiology Vitaliy Nobles MD [facility] ER [address] TADEO [place], [place] [address] (Wo rk) 06/10/2022 Office Visit Dermatology Laura Scherer MD [facility] ER DR TEJA GR-DERMAT [place], [place] 0[address] (Wo rk) documented [...] EST) P athologist Signature Thyroglobulin <0.4 <=54.9 [facility] ng/mL [facility]ORY Comment: Interpret with caution. Tg levels [...] BR et al. J Clin Endo Metab 1999;84:9532-6480). Assay performed using the DPC Immulite T [...] City/State/[place] [address] TSH (09/03/2016 11:07 AM EST) P athologist Signature TSH 3.01 0.27 - 4.20 KATALINA DAVIS mcIU/mL [facility] LABOR[facility]ORY Specimen Anatomical Collection Method Collection Time Receive d Time (Source) Location / / Volume Laterality Blood specimen 09/03/2016 11:07 7 (specimen) AM EST 11:22 AM EST Resulting Agency Comment Spec In Lab Luz Prescott MD CHEMISTRY ORDERABLES Performing Organization Address City/State/[place] [address] documented in this encounter Visit Diagnoses Diagnosis Hx of papillary thyroid carcinoma Personal history of malignant neoplasm o f thyroid documented in this encounter Care Teams Paramedic Instructor Relationship Specialty Start Date End Date Lovely Vicente MD PCP - General 04/16/[address] [place] [address] documented as of this encounter
--- OUTSIDE RECORDS SUMMARY | 2022-03-06 08:16 | XMS_ITS | Encounter Summary ---
:1945 Author Organization [facility] [place] [address] Care Team Providers Name Role Phone Angela Holliday APRN Primary Care Provider Encounter Details Date Type Department Care Team Description 03/30/2013 Telephone General Surgery at [facility] Cliff Nevarez, [place] [address] Social History Tobacco Use Types Packs/Day [...] MD [facility] DR TADE[address] [place], [place] [address] (Wo rk) 06/10/2022 Office Visit Dermatology Laura Scherer MD [facility] DR TEJA GR-DERMAT [place], [place] [address] (Wo rk) documented as of this encounter Visit Diagnoses Not on filedocumented in this encounter Care Teams Client Advisor Relationship Specialty Start Date End Date Angela Holliday APRN PCP - General 01/25/13 04/15/[address] [place] [address] documented as of this encounter
--- OUTSIDE RECORDS SUMMARY | 2022-03-06 08:16 | XMS_ITS | Encounter Summary ---
:1945 Author Organization [facility] [place] [address] Care Team Providers Name Role Phone MiyaAngela STACIE Primary Care Provider Reason for Visit Reason Comments Urinary Retention Encounter Details Date Type Department Care Team Description 05/16/2013 Follow-Up Urology at [facility] Blade Smith, Retention of urine [facility] (Primary Dx) [place] [address] UROLOGY DEPT [place] [address] (Wo rk) Social History Tobacco Use Types [...] MD [facility] DR TADE[address] [place], [place] [address] (Wo rk) 06/10/2022 Office Visit Dermatology Laura Scherer MD [facility] DR TEJA GR-DERMAT [facility] [place] [place] [address] (Wo rk) documented as of this encounter Visit Diagnoses Diagnosis Retention of urine - Primary Retention of urine, unspecified documented in this encounter Care Teams Threading Machine Setter Relationship Specialty Start Date End Date Angela Holliday APRN PCP - General 01/25/13 04/15/[address] [place] [address] documented as of this encounter
--- OUTSIDE RECORDS SUMMARY | 2022-03-06 08:16 | XMS_ITS | Encounter Summary ---
:1945 Author Organization [facility] [place] [address] Care Team Providers Name Role Phone Lovely Vicente MD Primary Care Provider Reason for Visit Reason Onset Date Comments Referral 10/30/2015 Urgent referral for mac on [address]N [place] Encounter Details Date Type Department Care Team Description 10/30/2015 Telephone Ophthalmology at [facility] C Jayson Ruiz Referral (Urgent [facility] MD Grabiel referral for mac on [facility] [address]) [place] [address] OPHTHALMOLOGY DEPT. [phone] [place], [place] [address] (Wo rk) Social History Tobacco [...] MD [facility] DR TADEO [place], [place] [address] (Wo rk) 06/10/2022 Office Visit Dermatology Laura Scherer MD [facility] DR TEJA GR-DERMAT [facility] [place], [place] [address] (Wo rk) documented as of this encounter Visit Diagnoses Not on filedocumented in this encounter Care Teams Analytical Technician Relationship Specialty Start Date End Date Lovely Vicente MD PCP - General 04/16/15 [facility] [address] [place] [address] documented as of this encounter
--- OUTSIDE RECORDS SUMMARY | 2022-03-06 08:16 | XMS_ITS | Encounter Summary ---
:1945 Author Organization [facility] [place] [address] Care Team Providers Name Role Phone Lovely Vicente MD Primary Care Provider Encounter Details Date Type Department Care Team Description 07/05/2017 Telephone Cardiology Kim Galindo MD [facility] [place] [address] CARDIOLOGY DEPT [phone] [place], [place] [address] (Wo rk) Social History Tobacco [...] 1:54pm Referring Provider: Ivania CROWELL) Patient Location: [facility] Presenting Symptoms per OSH: 72 year old [...] infarct and elevated troponin, transport patient to [facility] for cath this afternoon and arrhythmia monitoring. Kim Galindo MD Bee Worker documented in this encounter Plan of Treatment Upcoming Encounters Date Type Specialty Care Team Description 03/26/2022 Office Visit Cardiology Vitaliy Nobles MD [facility] DR T[address] [place], [place] [address] (Wo rk) 06/10/2022 Office Visit Dermatology Laura Scherer MD [facility] DR [address]-DERMAT [place], [place] [address] (Wo rk) documented as of this encounter Visit Diagnoses Not on filedocumented in this encounter Care Teams Rolling Machine Tender Relationship Specialty Start Date End Date Lovely Vicente MD PCP - General 04/16/[address] [place] [address] documented as of this encounter
--- OUTSIDE RECORDS SUMMARY | 2022-03-06 08:16 | XMS_ITS | Encounter Summary ---
:1945 Author Organization [facility] [place] [address] Care Team Providers Name Role Phone Lovely Vicente MD Primary Care Provider Reason for Visit Reason Comments Follow-up Encounter Details Date Type Department Care Team Description 06/03/2017 Office Visit Dermatology at [facility] benign nevi; Abdelrahman HOOPER MD History of melanoma; [address] [facility] History of dysplastic nevus; [place] [address] Skin exam for malignant neoplasm [phone] [facility]-DERMATOLGY [place], [place] [address] Social History Tobacco Use Types [...] [facility] ER DR TADEO [place], [place] [address] (Wo rk) 06/10/2022 Office Visit Dermatology Laura Scherer MD [facility] DR TEJA GR-DERMAT [place], [place] [address] (Wo rk) documented as [...] skin documented in this encounter Care Teams Canvas Baster Jumpbasting Relationship Specialty Start Date End Date Lovely Vicente MD PCP - General 04/16/[address] [place] [address] documented as of this encounter
--- OUTSIDE RECORDS SUMMARY | 2022-03-06 08:17 | XMS_ITS | Encounter Summary ---
:1945 Author Organization [facility] [place] [address] Care Team Providers Name Role Phone Angela Holliday APRN Primary Care Provider Encounter Details Date Type Department Care Team Description 01/25/2013 Clinical [place] [address] Social History Tobacco Use Types Packs/Day [...] Nobles MD [facility] CARDIOLOGY [place], [place] [address] (Wo rk) 06/10/2022 Office Visit Dermatology Laura Scherer MD [facility] DR TEJA GR-DERMAT [facility] [place], [place] [address] (Wo rk) documented as of this encounter Visit Diagnoses Not on filedocumented in this encounter Care Teams Ict Development Manager Relationship Specialty Start Date End Date Angela Holliday APRN PCP - General 01/25/13 04/15/[address] [place] [address] documented as of this encounter
--- OUTSIDE RECORDS SUMMARY | 2022-03-06 08:17 | XMS_ITS | Encounter Summary ---
:1945 Author Organization [facility] [place] [address] Care Team Providers Name Role Phone Unknown Primary Care Provider Unavailable Reason for Visit Reason Comments Other Encounter Details Date Type Department Care Team Description 10/05/2012 Telephone Dermatology at [facility] Rigoberto Garcia III, [address] [place] [address] [facility] [phone] TEJA MARIE-DERMAT [place] [id number] (Wo rk) Social History Tobacco Use Types [...] Office Visit Cardiology Vitaliy Nobles MD [facility] ER DR TADEO [place], [place] [address] (Wo rk) 06/10/2022 Office Visit Dermatology Laura Scherer MD [facility] DR TEJA MARIE-DERMAT O[place], [place] [address] (Wo rk) documented as of this encounter Visit Diagnoses Not on filedocumented in this encounter Care Teams Application Manager Relationship Specialty Start Date End Date Unknown PCP - General 10/04/12 01/24/13 None documented as of this encounter
--- OUTSIDE RECORDS SUMMARY | 2022-03-06 08:17 | XMS_ITS | Encounter Summary ---
:1945 Author Organization [place] [address] Care Team Providers Name Role Phone Angela Holliday APRN Primary Care Provider Encounter Details Date Type Department Care Team Description 03/15/2013 Telephone General Surgery at [facility] Maddison Key, [place] [address] Social History Tobacco Use Types Packs/Day [...] [facility] ER DR TADEO [place], [place] [address] (Wo rk) 06/10/2022 Office Visit Dermatology Laura Scherer MD [facility] DR TEJA GR-DERMAT [place], [place] [address] (Wo rk) documented as of this encounter Visit Diagnoses Not on filedocumented in this encounter Care Teams Senior Backup Administrator Relationship Specialty Start Date End Date Angela Holliday APRN PCP - General 01/25/13 04/15/[address] [place] [address] documented as of this encounter
--- OUTSIDE RECORDS SUMMARY | 2022-03-06 08:17 | XMS_ITS | Encounter Summary ---
:1945 Author Organization [facility] Address [facility] [place] [address] Care Team Providers Name Role Phone Unknown Primary Care Provider Unavailable Reason for Visit Reason Comments Skin Check Encounter Details Date Type Department Care Team Description 10/04/2012 Follow-Up Dermatology at [facility] soriasis (Primary Dx); Abdelrahman HOOPER MD Neoplasm of unspecified nature of bone, soft tissue, and skin; [address] [facility] Skin lesion of chest wall; [place] [address] Seborrheic psoriasis- scalp and ingtergl uteal area [phone] [facility]-DERMATOLGY [place], [place] [address] (Wo rk) Social History Tobacco [...] changes: Rigoberto Albarran MD Section of Dermatology [facility] documented in this encounter Plan of Treatment Upcoming Encounters Date Type Specialty Care Team Description 03/26/2022 Office Visit Cardiology Vitaliy Nobles MD [facility] DR T[address] [place], [place] [address] (Wo rk) 06/10/2022 Office Visit Dermatology Laura Scherer MD [facility] DR TEJA GR-DERMAT [place], [place] [address] (Wo rk) documented as of [...] Analysis Performed At [facility] gist Range Method Time Signature Surgical CERNER Pathology ? [facility] Report ? Provider: ?? RIGOBERTO ALBARRAN III Pt. Name: ?? NATALYA , DON E ?A ? Acc #: ?[id number] ? Pt. ? Col Date: ?? 3 [...] [facility]/ZIP [place] [address] CERNER MILLENNIUM Specimen to [...] [facility]/ZIP [place] [address] CERNER MILLENNIUM documented in this encounter Visit Diagnoses Diagnosis Psoriasis - Primary Other psoriasis Neoplasm of unspecified nature of bone, soft tissue, and skin Skin lesion of chest wall Unspecified disorder of skin and subcuta neous tissue Seborrheic psoriasis- scalp and ingtergl uteal area Other psoriasis documented in this encounter Care Teams Statistician Mathematical Relationship Specialty Start Date End Date Unknown PCP - General 10/04/12 01/24/13 None documented as of this encounter
--- OUTSIDE RECORDS SUMMARY | 2022-03-06 08:17 | XMS_ITS | Encounter Summary ---
:1945 Author Organization [facility] [place] [address] Care Team Providers Name Role Phone Adi Costello MD Primary Care Provider Reason for Visit Reason Comments Annual Exam ckeck his groin and melanoma follow-up Encounter Details Date Type Department Care Team Description 11/21/2010 Follow-Up Dermatology Arik Tipton Melanoma (Primary Dx) [facility] MD [place] [id number] DERMATOLOGY DEPT . 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 His only complaints are leg [...] changes: Arik Tipton MD Section of Dermatology [facility] documented in this encounter Plan of Treatment Upcoming Encounters Date Type Specialty Care Team Description 03/26/2022 Office Visit Cardiology Vitaliy Nobles MD [facility] DR TADE[address] [place], [place] [address] (Wo rk) 06/10/2022 Office Visit Dermatology Laura Scherer MD [facility] DR TEJA GR-DERMAT O[place], [place] [address] (Wo rk) documented as of this encounter Visit Diagnoses Diagnosis Melanoma - Primary Melanoma of skin, site unspecified documented in this encounter Care Teams Time Clerk Relationship Specialty Start Date End Date Adi Costello MD PCP - General 06/17/10 09/21/11 [address] [place] [address] documented as of this encounter
--- OUTSIDE RECORDS SUMMARY | 2022-03-06 08:17 | XMS_ITS | Encounter Summary ---
:1945 Author Organization [facility] [place] [address] Care Team Providers Name Role Phone NeilSom conner STACIE Primary Care Provider Reason for Visit Reason Comments Establish Care OBST GOITER Encounter Details Date Type Department Care Team Description 01/25/2013 Office Visit General Surgery at [facility] er colloid, toxic, [facility] [place] Eliseo nodular (Primary Dx) [facility] [place], [place] GENERAL SURGERY [id number] [place], [place] [address] [phone] Social History Tobacco Use Types Packs/Day Years [...] the thyroid gland were obtained using a SonoSiinTarvo MicroMaxx and an HFL38/13-6 broadband linear array [...] on physical exam. ROS: No H/O asthma, [place], stroke, pulmonary embolus or phlebitis. Comprehensive review [...] Cardiology Vitaliy Nobles MD [facility] CARDIOLOGY [place], [place] [address] (Wo rk) 06/10/2022 Office Visit Dermatology Laura Scherer MD [facility] DR TEJA GR-DERMAT [place], [place] [address] (Wo rk) documented as [...] 406 ms MUSE SYSTEM (Bezet) Calculated P [place] 52 degrees MUSE SYSTEM Calculated R [place] 0 degrees MUSE SYSTEM Calculated T [place] 40 degrees MUSE SYSTEM INTERPRETATION Normal sinus [...] storm documented in this encounter Care Teams Recyclable Materials Collector Relationship Specialty Start Date End Date Som Holliday APRN PCP - General 01/25/13 04/15/[address] [place] [address] documented as of this encounter
--- OUTSIDE RECORDS SUMMARY | 2022-03-06 08:17 | XMS_ITS | Encounter Summary ---
:1945 Author Organization [facility] [place] [address] Care Team Providers Name Role Phone Angela Holliday APRN Primary Care Provider Encounter Details Date Type Department Care Team Description 03/28/2013 Surgery Main Operating Room Mesha Mcknight, THYROIDECTOMY, [facility] [address] Siddiqui [place] [address] [place] [address] [phone] (Wo rk) Social History Tobacco Use Types [...] please call the General Surgery nurse at [phone], since this may mean that you need morecalcium. Follow-up Appointment: Will be scheduled with Dr. Mcknight in 6 weeks Date and time as well as any required labs will be mailed to you Please call [phone] to confirm date and time of your [...] by calcium supplementation. Phone number for questions: [phone] before 5 PM weekdays [phone] after 5 PM and on weekends/holidays Please follow up with Urology as per their recommendations for Bob removal AttachmentsThe following attachments cannot be sent through Care Everywhere. THYROIDECTOMY: WHAT TO EXPECT AT HOME ([place])URINARY CATHETER CARE: AFTER YOUR VISIT ([place])documented in this encounter Medications at Time of [...] is a 68 y.o. male presents to [facility] today for total thyroidectomy. See full Consult [...] MD - 03/28/2013 3:43 PM EDT [facility] Operative Note Patient Name: Gregory Fatima : [id number] MR#: [id number] Case Date: 03/28/2013 Surgeon: Surgeon(s) and Role: [...] patient was extubated and taken to the [facility] in stable condition. At the end ofthe [...] Operative Note Patient Name: Gregory Fatima : [id number] MR#: [id number] Case Date: 03/28/2013 Surgeon: Surgeon(s) and Role: [...] Nobles MD [facility] CARDIOLOGY [place], [place] [address] (Wo rk) 06/10/2022 Office Visit Dermatology Laura Scherer MD [facility] DR TEJA GR-DERMAT [facility] [place], [place] [address] (Wo rk) documented as of [...] Address City/State/ZIP Code Phon e Number [address] CERNER MILLENNIUM (ABNORMAL) POCT [...] City/[facility]/[place] [address] CERNER MILLENNIUM (ABNORMAL) POCT [...] Address City/State/ZIP Code Phon e Number [address] CERNER MILLENNIUM (ABNORMAL) POCT [...] City/[facility]/ZIP Code Phon e Number [address] CERNER MILLENNIUM (ABNORMAL) POCT [...] Address City/State/ZIP Code Phon e Number [address] CERNER MILLENNIUM (ABNORMAL) POCT [...] Organization Address City/State/[place] [address] CERNER MILLENNIUM (ABNORMAL) POCT [...] City/[facility]/ZIP Code Phon e Number [address] CERNER MILLENNIUM (ABNORMAL) POCT [...] Organization Address City/State/[place] [address] CERNER MILLENNIUM Specimen to Pathology (surgical or derm) (03/28/2013 12:14 PM EDT) Specimen Anatomical Collection Method Collection Time Receive d Time (Source) Location / / Volume Laterality AP Specimen 03/28/2013 12:14 03/28/2013 PM EDT 12:14 PM EDT Narrative [facility] - 03/28/2013 12:14 PM EDT Specimen requisition ordered. ??Separate Pathology report to follow Mesha Mcknight MD PATHOLOGY/CYTOLOGY ORDERABLE S Performing Organization Address City/State/[place] [address] [facility] Pathology Addendum Report (03/28/2013 12:03 PM EDT) Component Value Ref Test Analysis Performed At [facility] gist Range Method Time Signature Addendum [facility] Report ? [facility] ? Provider: ?? MESHA MCKNIGHT Pt. Name: ?? SHERIF FATIMARY Veda ? Acc #: ?[id number] ?Pt. MRN: ?[id number] ? Col Date: ?? 03/28/2013 ?/Sex: ?1945,(68 [...] ORDERABLE S Performing Organization Address [facility]/State/[place] [address] [facility] Surgical Pathology Report (03/28/2013 12:03 PM EDT) Component Value Ref Test Analysis Performed At [facility] gist Range Method Time Signature Surgical [facility] Pathology ? [facility] Report ? Provider: ?? MESHA MCKNIGHT Pt. Name: ?? GREGORY FATIMA ? Acc #: ?[id number] ?Pt. MRN: ?[id number] ? Col Date: ?? 03/28/2013 ?/Sex: ?1945,(68 [...] ? JRP ? 03/31/13 Verified by: ? éCsar STRANGE, Ruben Yusuf ? Pathologist ? (Electronic [...] of hemorrhage and ? calcifications. ? [facility] ? Provider: ?? MESHA MCKNIGHT Pt. Name: ?? GREGORY FATIMA ? Acc #: ?[id number] ?Pt. MRN: ?[id number] ? Col Date: ?? 03/28/2013 ?/Sex: ?1945,(68 years),Male ? Rec Date: ?? 03/28/2013 ?LOC: ?[facility] ? SURGICAL PATHOLOGY ? SECTIONS/PROCESSING: Marketing Clerk sections are subm itted. (R6) ? [...] ORDERABLE S Performing Organization Address [facility]/State/ZIP Code Phon e Number [place] [phone] CERNER MILLENNIUM Frozen Section Report (03/28/2013 12:03 PM EDT) Component Value Ref Test Analysis Performed At [facility] Range Method Time Signature Frozen CERNER Section ? [facility] ? Provider: ?? MESHA MCKNIGHT Pt. Name: ?? GREGORY FATIMA ? Acc #: ?[id number] ?Pt. MRN: ?[id number] ? Col Date: ?? 03/28/2013 ?/Sex: ?1945,(68 years),Male ? Rec Date: ?? 03/28/2013 ?LOC: ?[facility] ? FROZEN SECTION REPORT ? ---Frozen Section Report--- ? Part A - Intraoperati ve gross consultation was performed. ??The case was ? discussed by phone with Dr. Mcknight, and no frozen ? section was performed. ? 03/31/13 ??Verified by: ??César STRANGE, Ruben Yusuf, [facility] gist ? The attending [employer] gist whose electronic signature appears on this [...] Organization Address City/State/[place] [address] [facility] POCT Glucose (03/28/2013 12:00 PM EDT) P athologist Signature POC Glucose 134 60 - 199 CERNER mg/dL [facility] Comment: Supplemental ranges: <110 mg/dL before meals <200 mg/dL all other times of the day Specimen Anatomical Collection Method Collection Time Receive d Time (Source) Location / / Volume Laterality Blood specimen 03/28/2013 12:00 3 (specimen) PM EDT 12:00 PM EDT Mesha Mcknight MD POINT OF CARE TEST ORDERABLE S Performing Organization Address City/[facility]/ZIP [place] [address] [facility] Specimen to Pathology (surgical or derm) (03/28/2013 11:58 AM EDT) Specimen Anatomical Collection Method Collection Time Receive d Time (Source) Location / / Volume Laterality AP Specimen 03/28/2013 11:58 03/28/2013 AM EDT 11:58 AM EDT Narrative [facility] - 03/28/2013 11:58 AM EDT Specimen requisition ordered. ??Separate Pathology report to follow Mesha Mcknight MD PATHOLOGY/CYTOLOGY ORDERABLE S Performing Organization Address City/[facility]/ZIP [place] [address] [facility] Antibody screen (03/28/2013 9:37 AM EDT) Analysis Performed At Patho logist Time Signature Ab Screen Negative [facility] Expires at [id number] [facility] 2358 on: MILLENNIUM Specimen Anatomical Collection Method Collection Time Receive d Time (Source) Location / / Volume Laterality Blood specimen 03/28/2013 9:37 AM 013 9:37 (specimen) EDT AM EDT Resulting Agency Comment Spec In Lab Mesha Mcknight MD BLOOD BANK ORDERABLES Performing Organization Address City/State/ZIP Code Phon e Number [place] [phone] [facility] [address] CERNER MILLENNIUM ABO/Rh Typing (03/28/2013 [...] Address City/State/ZIP Code Phon e Number [address] CERNER MILLENNIUM Differential, Automated [...] Organization Address City/State/[place] [address] CERNER MILLENNIUM (ABNORMAL) Basic [...] supplied above were not validated at [facility]. Results from pediatri c patients should [...] Mcknight MD CHEMISTRY ORDERABLES Performing Organization Address City/[facility]/ZIP [place] [address] CERNER MILLENNIUM (ABNORMAL) CBC [...] Organization Address City/State/[place] [address] CERKERI CARVALHOIUM POCT Glucose (03/28/2013 9:17 AM EDT) P athologist Signature POC Glucose 108 60 - 199 CERNER mg/dL [facility] Comment: Supplemental ranges: <110 mg/dL before meals <200 mg/dL all other times of the day Specimen Anatomical Collection Method Collection Time Receive d Time (Source) Location / / Volume Laterality Blood specimen 03/28/2013 9:17 AM 013 9:17 (specimen) EDT AM EDT Mesha Mcknight MD POINT OF CARE TEST ORDERABLE S Performing Organization Address City/State/ZIP Code Phon e Number [address] [facility] Specimen to Pathology (surgical or [...] Address City/State/ZIP Code Phon e Number [address] [facility] documented in this encounter Visit [...] override documented in this encounter Care Teams Jig Box Operator Relationship Specialty Start Date End Date Angela Holliday APRN PCP - General 01/25/13 04/15/15 [address] [place] [address] documented as of this encounter
--- OUTSIDE RECORDS SUMMARY | 2022-03-06 08:17 | XMS_ITS | Encounter Summary ---
:1945 [place] [address] Care Team Providers Name Role Phone Holley Hollidayica STACIE Primary Care Provider Encounter Details Date Type Department Care Team Description 03/28/2013 - [facility] 03/29/2013 Barbara Gomes MD Dx) [facility] DR [place]iddiqu[place] [id number] [phone] Social History Tobacco Use Types Packs/Day Years [...] please call the General Surgery nurse at [phone], since this may mean that you need morecalcium. Follow-up Appointment: Will be scheduled with Dr. Mcknight in 6 weeks Date and time as well as any required labs will be mailed to you Please call [phone] to confirm date and time of your [...] by calcium supplementation. Phone number for questions: [phone] before 5 PM weekdays [phone] after 5 PM and on weekends/holidays Please follow up with Urology as per their recommendations for Bob removal AttachmentsThe following attachments cannot be sent through Care Everywhere. THYROIDECTOMY: WHAT TO EXPECT AT HOME ([place])URINARY CATHETER CARE: AFTER YOUR VISIT ([place])documented in this encounter Medications at Time of [...] is a 68 y.o. male presents to [facility] today for total thyroidectomy. See full [...] 03/28/2013 3:43 PM EDT [facility] Operative Note Patient Name: Gregory Fatima : [id number] MR#: [id number] Case Date: 03/28/2013 Surgeon: Surgeon(s) and Role: [...] patient was extubated and taken to the [facility] in stable condition. At the end [...] Operative Note Patient Name: Gregory Fatima : [id number] MR#: [id number] Case Date: 03/28/2013 Surgeon: Surgeon(s) and Role: [...] Nobles MD [facility] CARDIOLOGY [place], [place] [address] (Wo rk) 06/10/2022 Office Visit Dermatology Laura Scherer MD [facility] DR TEJA GR-DERMAT [facility] [place] [address] (Wo rk) documented as of [...] Organization Address City/State/ZIP Code Phon e Number [address] CERNER MILLENNIUM (ABNORMAL) POCT [...] [facility]/[place] [address] CERNER MILLENNIUM (ABNORMAL) POCT [...] Organization Address City/State/ZIP Code Phon e Number [address] CERNER MILLENNIUM (ABNORMAL) POCT [...] [facility]/ZIP Code Phon e Number [address] CERNER MILLENNIUM (ABNORMAL) POCT [...] Organization Address City/State/ZIP Code Phon e Number [address] CERNER MILLENNIUM (ABNORMAL) POCT [...] Organization Address City/State/[place] [address] CERNER MILLENNIUM (ABNORMAL) POCT [...] [facility]/ZIP Code Phon e Number [address] CERNER MILLENNIUM (ABNORMAL) POCT [...] Organization Address City/State/[place] [address] CERNER MILLENNIUM Specimen to Pathology (surgical or derm) (03/28/2013 12:14 PM EDT) Specimen Anatomical Collection Method Collection Time Receive d Time (Source) Location / / Volume Laterality AP Specimen 03/28/2013 12:14 03/28/2013 PM EDT 12:14 PM EDT [facility]ative [facility] - 03/28/2013 12:14 PM EDT Specimen requisition ordered. ??Separate Pathology report to follow Mesha Mcknight MD PATHOLOGY/CYTOLOGY ORDERABLE S Performing Organization Address City/State/[place] [address] [facility] Pathology Addendum Report (03/28/2013 12:03 PM EDT) Component Value Ref Test Analysis Performed At [facility] gist Range Method Time Signature Addendum [facility] Report ? [facility] ? Provider: ?? MESHA MKCNIGHT Pt. Name: ?? SHERIF FATIMARY Veda ? Acc #: ?[id number] ?Pt. MRN: ?[id number] ? Col Date: ?? 03/28/2013 ?/Sex: ?1945,(68 [...] MD PATHOLOGY/CYTOLOGY ORDERABLE S Performing Organization Address [facility]/State/[place] [address] [facility] Surgical Pathology Report (03/28/2013 12:03 PM EDT) Component Value Ref Test Analysis Performed At [facility] gist Range Method Time Signature Surgical [facility] Pathology ? [facility] Report ? Provider: ?? MESHA MCKNIGHT Pt. Name: ?? GREGORY FATIMA ? Acc #: ?[id number] ?Pt. MRN: ?[id number] ? Col Date: ?? 03/28/2013 ?/Sex: ?1945,(68 [...] areas of hemorrhage and ? calcifications. ? [facility] ? Provider: ?? MESHA MCKNIGHT Pt. Name: ?? GREGORY FATIMA ? Acc #: ?[id number] ?Pt. MRN: ?[id number] ? Col Date: ?? 03/28/2013 ?/Sex: ?1945,(68 years),Male ? Rec Date: ?? 03/28/2013 ?LOC: ?[facility] ? SURGICAL PATHOLOGY ? SECTIONS/PROCESSING: Cleaner Touch Up Worker sections are subm itted. (R6) ? B [...] MD PATHOLOGY/CYTOLOGY ORDERABLE S Performing Organization Address [facility]/State/ZIP Code Phon e Number [place] [phone]OS[address] CERNER MILLENNIUM Frozen Section Report (03/28/2013 12:03 PM EDT) Component Value Ref Test Analysis Performed At [facility] Range Method Time Signature Frozen CERNER Section ? [facility] ? Provider: ?? MESHA MCKNIGHT Pt. Name: ?? GREGORY FATIMA ? Acc #: ?[id number] ?Pt. MRN: ?[id number] ? Col Date: ?? 03/28/2013 ?/Sex: ?1945,(68 years),Male ? Rec Date: ?? 03/28/2013 ?LOC: ?[facility] ? FROZEN SECTION REPORT ? ---Frozen Section Report--- ? Part A - Intraoperati ve gross consultation was performed. ??The case was ? discussed by phone with Dr. Mcknight, and no frozen ? section was performed. ? 03/31/13 ??Verified by: ??César STRANGE, Ruben Yusuf, [facility] gist ? The attending [facility] gist whose electronic signature appears [...] Organization Address City/State/[place] [address] [facility] [facility]ITAL[facility] POCT Glucose (03/28/2013 12:00 PM EDT) P athologist Signature POC Glucose 134 60 - 199 CERNER mg/dL [facility] Comment: Supplemental ranges: <110 mg/dL before [...] [facility]/ZIP Code [place] [address] [facility] Specimen to Pathology (surgical or derm) (03/28/2013 11:58 AM EDT) Specimen Anatomical Collection Method Collection Time Receive d Time (Source) Location / / Volume Laterality AP Specimen 03/28/2013 11:58 03/28/2013 AM EDT 11:58 AM EDT Narrative [facility] - 03/28/2013 11:58 AM EDT Specimen requisition ordered. ??Separate Pathology report to follow Mesha Mcknight MD PATHOLOGY/CYTOLOGY ORDERABLE S Performing Organization Address City/[facility]/ZIP Code [place] [address] [facility] MILL[address]LET [facility] Antibody screen (03/28/2013 9:37 AM EDT) Analysis Performed At Patho logist Time Signature Ab Screen Negative [facility]NIUM Expires at [id number] [facility] 2358 on: MILLENNIUM Specimen Anatomical Collection Method Collection Time Receive d Time (Source) Location / / Volume Laterality Blood specimen 03/28/2013 9:37 AM 013 9:37 (specimen) EDT AM EDT Resulting Agency Comment Spec In Lab Mesha Mcknight MD BLOOD BANK ORDERABLES Performing Organization Address City/State/ZIP Code Phon e Number [place] [phone] [facility] [address] CERNER MILLENNIUM ABO/Rh Typing [...] Organization Address City/State/ZIP Code Phon e Number [address] CERNER MILLENNIUM Differential, Automated [...] Organization Address City/State/[place] [address] CERNER MILLENNIUM (ABNORMAL) Basic [...] were not validated at [facility]. Results from pediatri c patients should be [...] Mcknight MD CHEMISTRY ORDERABLES Performing Organization Address City/[facility]/ZIP Code [place] [address] CERNER MILLENNIUM (ABNORMAL) CBC [...] Organization Address City/State/[place] [address] CERKERI CARVALHOIUM POCT Glucose (03/28/2013 9:17 AM EDT) P athologist Signature POC Glucose 108 60 - 199 CERNER mg/dL [facility] Comment: Supplemental ranges: <110 mg/dL before meals <200 mg/dL all other times of the day Specimen Anatomical Collection Method Collection Time Receive d Time (Source) Location / / Volume Laterality Blood specimen 03/28/2013 9:17 AM 013 9:17 (specimen) EDT AM EDT Mesha Mcknight MD POINT OF CARE TEST ORDERABLE S Performing Organization Address City/State/ZIP Code Phon e Number [address] [facility] Specimen to Pathology (surgical or derm) (03/28/2013 8:55 AM EDT) Specimen Anatomical Collection Method Collection Time Receive d Time (Source) Location / / Volume Laterality AP Specimen 03/28/2013 8:55 AM 3 8:54 EDT AM EDT Narrative [facility] - 03/28/2013 8:55 AM E DT Specimen requisition ordered. ??Separate Pathology report to follow Mesha Mcknight MD PATHOLOGY/CYTOLOGY ORDERABLE S Performing Organization Address City/State/ZIP Code Phon e Number [address] [facility] documented in this encounter Visit Diagnoses [...] override documented in this encounter Care Teams Dentist Private Practice Relationship Specialty Start Date End Date Angela Holliday APRN PCP - General 01/25/13 04/15/15 [address] [place] [address] documented as of this encounter
--- OUTSIDE RECORDS SUMMARY | 2022-03-06 08:17 | XMS_ITS | Encounter Summary ---
:1945 [place] [address] Care Team Providers Name Role Phone MiyaLokeshAngela STACIE Primary Care Provider Encounter Details Date Type Department Care Team Description 03/28/2013 Anesthesia Event Main Operating Room Meredith Calvert MD [facility] [place] [address] [facility] Nolvia Riojas PA [facility] [place] [address] [place] [address] Anesthesia Record Procedure Summary Procedure Name [...] Nobles MD [facility] DR T[address] [place], [place] [address] (Wo rk) 06/10/2022 Office Visit Dermatology Laura Scherer MD [facility] DR TEJA GR-DERMAT [place], [place] [address] (Wo rk) documented as of [...] Routine documented in this encounter Care Teams Finished Cigar Maker Relationship Specialty Start Date End Date Angela Holliday APRN PCP - General 01/25/13 04/15/[address] [place] [address] documented as of this encounter
--- OUTSIDE RECORDS SUMMARY | 2022-03-06 08:18 | XMS_ITS | Encounter Summary ---
:1945 Author Organization [facility] Address [address] [place] [address] Care Team Providers Name Role Phone Lovely Vicente MD Primary Care Provider Encounter Details Date Type Department Care Team Description 04/04/2021 Lab Requisition [facility] Outr Resulting Lab, Pathology & Laboratory Provider [facility] [address] [place] [address] Social History Tobacco Use Types Packs/Day Years [...] (04/03/2021 12:15 EDT) Giardia and Cryptosporidium Cryptosporidium [facility] Cryptosporidium Antigen Neg and Antigen Neg and CENTER Giardia Antigen Neg Giardia Antigen Neg LABORATORY SERVICES Specimen Feces - Specimen from rectum (specimen) Performing Organization Address City/State/ZIP Code Phon e Number [facility] LABORATORY [address] [place] [address] SERVICES documented in this encounter Visit Diagnoses Not on filedocumented in this encounter Care Teams Dupligraph Operator Relationship Specialty Start Date End Date Lovely Vicente MD PCP - General 07/13/14 documented as of this encounter
--- OUTSIDE RECORDS SUMMARY | 2022-03-06 08:18 | XMS_ITS | Encounter Summary ---
:1945 Author Organization [facility] Address [address] [place] [address] Care Team Providers Name Role Phone Lovely Vicente MD Primary Care Provider Encounter Details Date Type Department Care Team Description 01/28/[address] [facility] Outr Resulting Lab, Pathology & Laboratory Provider [facility] [address] [place] [address] Social History Tobacco Use Types Packs/Day Years Used Date Never Assessed Sex Assigned at Date Recorded Not on file documented as of this encounter Plan of Treatment Not on filedocumented as of this encounter Procedures Procedure Name Priority Date/Time Associated Diagnosis Comme nts COVID-19 TEST [facility] Today 01/27/2022 14:30 LAB PCR EDT COVID-19 TESTING Routine 01/27/2022 14:30 Results for this EDT procedure are i n the results section. documented in this encounter Results COVID-19 TEST [facility] LAB PCR (01/27/2022 14:30 EDT) Specimen Swab Performing Organization Address City/State/ZIP Code Phon e Number [facility] [address] [place] [address] SERVICES COVID-19 TESTING (01/27/2022 14:30 EDT) COVID-19 rt-PCR Negative Negative [facility] Result Comment: CENTER LABORATORY This [...] was performed using the meliton SARS-CoV-2 assay ([employer] on the Meliton 6800 System Performing Lab Meliton [address] [facility] Lab [facility] SERVICES Specimen Swab Performing Organization Address City/State/ZIP Code Phon e Number [facility] [address] [place] [address] SERVICES documented in this encounter Visit Diagnoses Not on filedocumented in this encounter Care Teams Pony Rougher Relationship Specialty Start Date End Date Lovely Vicente MD PCP - General 07/13/14 documented as of this encounter
--- OUTSIDE RECORDS SUMMARY | 2022-03-06 08:18 | XMS_ITS | Encounter Summary ---
:1945 Author Organization [facility] Address [address] [place] [address] Care Team Providers Name Role Phone Lovely Vicente MD Primary Care Provider Encounter Details Date Type Department Care Team Description 04/04/2021 Lab Requisition [facility] Outr Resulting Lab, Pathology & Laboratory Provider [facility] [address] [place] [address] Social History Tobacco Use Types Packs/Day Years [...] nature Salmonella PCR Negative Negative [facility] SERVICES Shigella/Enteroinvasive Negative Negative [facility]ORY SERVICES HN LAB CAMPYLOBACTER PCR Negative Negative [facility] ER LABORATORY SERVICES Shiga Toxin PCR Negative Negative [facility] SERVICES Specimen Feces - Specimen from rectum (specimen) Performing Organization Address City/State/ZIP Code Phon e Number [facility] [address] [place] [address] SERVICES documented in this encounter Visit Diagnoses Not on filedocumented in this encounter Care Teams Senior Commissary Agent Relationship Specialty Start Date End Date Lovely Vicente MD PCP - General 07/13/14 documented as of this encounter
--- OUTSIDE RECORDS SUMMARY | 2022-03-06 08:18 | XMS_ITS | Encounter Summary ---
:1945 Author Organization [facility] Address [address] [place] [address] Care Team Providers Name Role Phone Unavailable Primary Care Provider Unavailable Encounter Details Date Type Department Care Team Description 03/05/2014 Hospital Encounter [facility] Unknown, Provider, [facility] 0 [facility] [phone] [place] [address] (Work) [phone] Social History Tobacco Use Types Packs/Day Years [...]
--- OUTSIDE RECORDS SUMMARY | 2022-03-06 08:18 | XMS_ITS | Encounter Summary ---
:1945 Author Organization [facility] Address [address] [place] [address] Care Team Providers Name Role Phone Unknown, Provider Primary Care Provider Encounter Details Date Type Department Care Team Description 03/05/2014 Results Only [facility] Eris Taylor MD Laboratory Services - [address] [place] [address] [place] [address] [phone] Social History Tobacco Use Types Packs/Day Years [...] ? DON HOANG ? Accession #: ? [id number] ? : ? 1945 (Age: 68) ??M [...] Address City/State/ZIP Code Phon e Number [facility] [address] [place] [address] SERVICES [facility] [address] [place] [address] documented in this encounter Visit Diagnoses Not on filedocumented in this encounter Care Teams Stemhole Borer Relationship Specialty Start Date End Date Unknown, Provider, PCP - General 03/07/14 07/12/14 documented as of this encounter
--- OUTSIDE RECORDS SUMMARY | 2022-03-06 08:18 | XMS_ITS | Encounter Summary ---
:1945 Author Organization [facility] Address [address] [place] [address] Care Team Providers Name Role Phone Unknown, Provider Primary Care Provider Encounter Details Date Type Department Care Team Description 07/11/2014 Results Only [facility] Shruthi Horowitz MD Laboratory Services - [address] [place] [address] [place] [address] 0 [place] [address] [phone] Social History Tobacco Use Types Packs/Day Years [...] 8:55 EST) Pathology Report: SURGICAL PATHOLOGY REPORT [facility] Reports generated via electronic interface contain sorin ginal data; LABORATORY however they are lacking the format of the original re port. SERVICES Caution should be taken when reading/interpreting unfo rmatted reports. Name: ? DON HOANG ? Accession #: ? [id number] ? : ? 1945 (Age: 69) ??M [...] 6.5 x 3.0 cm in aggreg ate). General House Worker sections are submitted in 1- 10 (approximately 40% of the specimen is submitted). Viry Nunez 07/12/2014 11:21 AM End of Report Specimen Performing Organization Address City/State/ZIP Code Phon e Number [facility] [address] [place] [address] SERVICES documented in this encounter Visit Diagnoses Not on filedocumented in this encounter Care Teams Deep Fat Fry Cook Relationship Specialty Start Date End Date Unknown, Provider, PCP - General 03/07/14 07/12/14 documented as of this encounter
--- OUTSIDE RECORDS SUMMARY | 2022-03-06 08:18 | XMS_ITS | Encounter Summary ---
:1945 Author Organization [facility] Address [address] [place] [address] Care Team Providers Name Role Phone Lovely Vicente MD Primary Care Provider Encounter Details Date Type Department Care Team Description 08/11/2019 Lab Requisition [facility] Unknown, Provider, Pathology & Laboratory [facility] [address] [place] [address] Social History Tobacco Use Types Packs/Day Years [...] (08/11/2019 14:35 EST) Giardia and Cryptosporidium Cryptosporidium [facility] Cryptosporidium Antigen Neg and Antigen Neg and CENTER Giardia Antigen Neg Giardia Antigen Neg LABORATORY SERVICES Specimen Feces - Specimen from rectum (specimen) Performing Organization Address City/State/ZIP Code Phon e Number [facility] [address] [place] [address] SERVICES documented in this encounter Visit Diagnoses Not on filedocumented in this encounter Care Teams Bronze Plater Relationship Specialty Start Date End Date Lovely Vicente MD PCP - General 07/13/14 documented as of this encounter
--- OUTSIDE RECORDS SUMMARY | 2022-03-06 08:18 | XMS_ITS | Encounter Summary ---
:1945 Author Organization [facility] Address [address] [place] [address] Care Team Providers Name Role Phone Lovely Vicente MD Primary Care Provider Encounter Details Date Type Department Care Team Description 02/20/2022 Lab Requisition [facility] Outr Resulting Lab, Pathology & Laboratory Provider [facility] [address] [place] [address] Social History Tobacco Use Types Packs/Day Years [...] Pathologist Sig nature PSA 2.7 <=6.5 ng/mL [facility] SERVICES Specimen Blood - Venous blood (substance) Narrative [facility] - 02/20/2022 18:17 EDT NOTE: Serum PSA concentration should not be in terpreted as absolute evidence for the presence or absence of malignant disease. Assayed on Siem[employer] Centaur XPT usi ng chemiluminescent technology.??Values obtained by using different assay methods cannot be used interchangeably. Performing Organization Address City/State/ZIP Code Phon e Number [facility] [address] [place] [address] SERVICES documented in this encounter Visit Diagnoses Not on filedocumented in this encounter Care Teams Geological Science Teacher Relationship Specialty Start Date End Date Lovely Vicente MD PCP - General 07/13/14 documented as of this encounter
--- OUTSIDE RECORDS SUMMARY | 2022-03-09 15:22 | XMS_ITS | Encounter Summary ---
:1945 Author Organization [place] [address] Care Team Providers Name Role Phone Lovely Vicente MD Primary Care Provider Reason for Visit Reason Onset Date Comments Follow-up 02/23/2022 Medication adjustmen t and new med Encounter Details Date Type Department Care Team Description 02/23/2022 Telephone Cardiology at [facility] Martha Comer, Follow-up ([facility] RN adjustbrandon t and new med) [place] [phone] Social History Tobacco Use Types Packs/Day Years Used Date Former Smoker Cigarettes 3 5 Quit: 07/26/18 69 Smokeless Tobacco: Never Used Alcohol Use Standard Drinks/Week Comments No 0 (1 standard drink = 0.6 oz pure alcoho l) Sex Assigned at Date Recorded Not on file documented as of this encounter Miscellaneous Notes Telephone Encounter - Martha Cmoer RN - 02/24/2022 4:47 PM EDT Call placed to pt & with the following response from STEPHANIE Poole: Yes, please repeat. ??I placed the order for BMP and sent to [facility]. will call [facility] to make an appointment for next Wednesday03/04/22. [...] tablet) daily. She will correct his pill senior materials planner to the new dose. Will need to check with STEPHANIE Poole about repeat BMP to recheck K+ level. If yes he will get the test done at [facility]. They are aware that he will need to make an appt at [facility] to get the test done. Entresto: states [...] if he qualifies for assistance from the [employer]. She is thankful for the assistance, as he is taking insulin that is very expensive too. Instructed to call this advertising copy writer, if he does qualify for assistance from [employer] and that he has gotten the medication [...] [facility] ER [address] [place], [place] [address] (Wo rk) 06/10/2022 Office Visit Dermatology Laura Scherer MD [facility] ER DR [address]JA [facility] [place], [place] [address] (Wo rk) documented as of this encounter Visit Diagnoses Not on filedocumented in this encounter Care Teams Audit Director Relationship Specialty Start Date End Date Lovely Vicente MD PCP - General 04/16/[address] [place] [address] documented as of this encounter
--- OUTSIDE RECORDS SUMMARY | 2022-03-09 15:22 | XMS_ITS | Clinical Summary ---
:1945 Author Organization [facility] [place] [address] Care Team Providers Name Role Phone Lovely [...] mg by 0 Active Capsule mouth daily. levothyroxine Take 1 tablet by 102 tablet [...] (Entresto) 24-26 mg Tablet times daily. tablet metoprolol succinate XL Take 1 tablet by mouth 30 tablet 3 06/2022 Active (Toprol-XL) 25 mg Tablet daily. 0.5 tablet of 50 Sustained Release 24 mg hrIndications: Chronic systolic heart failure, Cardiomyopathy, ischemic Active Problems Problem Noted Date CAD (coronary [...] Encounters Date Type Specialty Care Team Description 03/06/2022 Refill Cardiology Virgilio Medication Refi ll STEPHANIE Hill (Metoprolol Suc cinate) 03/06/2022 Refill Cardiology Liz Poole PA 03/06/2022 Telephone Cardiology Martha Comer, Follow-up (E ntrsantiagoo RN Start) 02/26/2022 Telephone Cardiology Martha Comer, Follow-up (E valeria RN start) 02/24/2022 Notes Only Care Management Morgan Wood 02/24/2022 Orders Only Cardiology Ivone Poole systoli c heart STEPHANIE Hill failure 02/23/2022 Telephone Cardiology Martha Comer, Follow-up (M edication RN adjustment and new med) 02/23/2022 Refill Cardiology Liz Poole PA 02/20/2022 Specialty Pharmacy Pharmacy Lamberto Smith A utlucia Martinez (Entresto 24-26 mg tablets) 02/19/2022 Office Visit Cardiology Ivone Poole systissac c heart STEPHANIE Hill failure 02/19/2022 Laboratory Lab Chronic systoli c heart Appointment failure 01/30/2022 Surgery Cardiology Vitaliy Nobles, CARDIAC MD CATHETERIZATION 01/30/2022 Laboratory Lab ASCVD Appointment (arteriosclerot ic cardiovascular disease) 01/30/2022 Hospital Encounter Vitaliy Nobles ASCVD (a rteriosclerotic cardiovascular disease); 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; ASHD (arteriosc lerotic heart disease) 01/28/2022 Orders Only Cardiology JEMIMA Gannon PA (arteriosclerot ic cardiovascular disease) 01/28/2022 Telephone Cardiology Chitra Angela RN 12/30/2021 Notes Only Cardiology Rebeka Deluca RN 12/25/2021 Office Visit Cardiology Virgilio Chronic systoli c heart STEPHANIE Hill failure 12/25/2021 Laboratory Lab Chronic systoli c heart Appointment failure 12/24/2021 Telephone [facility] Dayami Buckner Ching 12/24/2021 Orders Only Cardiology JEMIMA Gannon PA [...] Cardiology Vitaliy Nobles MD [facility] [address] [place], [place] [address] (Wo rk) 06/10/2022 Office Visit Dermatology Laura Scherer MD [facility] [address] [place], [place] [address] (Wo rk) Health Maintenance Due Date Last Done Comments Covid-19 Vaccine (#1) 1950 Pneumoccocal Vaccine: 65+ (1 - PCV) 1952 Hepatitis C Screening 1964 Tdap adult 1965 Tetanus vaccine 1965 Zoster vaccine (1 of 2) 1996 AAA Screen 2011 Colonoscopy 01/16/2019 01/16/2014, 01/16/2014 Influenza (Flu) vaccine (1 of 1 - 03/26/2022 03/29/2013, Influenza standard series) Medical Devices Implanted Type Area Crown Pouncer Device Shelf Model / Identifier Expiration Serial / Date Lot Cable,Cut,Edg,Blnt,Ss,3tpr ([id number]) - [id number] IMPLANTS Midline: [employer] 04/01/2022 [id number] / Implanted: Qty: 4 on 07/07/2017 by Yuan Retana MD at [facility] [employer] - / [id number] Procedures Procedure Name Priority Date/Time Associated Diagnosis Comme nts BASIC METABOLIC PANEL Routine 03/05/2022 7:04 Res ults for this (NON-FASTING) AM EDT procedure are in the results section. LAB SCAN 03/05/2022 12:00 Results for this [...] section. from Last 3 Months Results (ABNORMAL) Basic Metabolic Panel (non-fasting) (03/05/2022 7:04 AM EDT)Only the most recent of8 resultswithin the time period is included. P athologist Signature Glucose Lvl 132 EXTERNAL LAB BUN 29 EXTERNAL LAB Creatinine 1.4 EXTERNAL LAB Estimated GFR 49.41 EXTERNAL LAB Sodium 140 EXTERNAL LAB Potassium 4.4 EXTERNAL LAB Chloride 105 EXTERNAL LAB CO2 28 EXTERNAL LAB Calcium 8.8 EXTERNAL LAB Anion Gap 7 EXTERNAL LAB Specimen (Source) Anatomical Collection Method Collection Time Re ceived Time Location / / Volume Laterality Blood 03/05/2022 7:04 AM EDT Historical Provider CHEMISTRY ORDERABLES Performing Organization Address City/State/ZIP Code Phon e Number EXTERNAL FACILITY EXTERNAL LAB SCAN DOC: LAB (03/05/2022 12:00 AM EDT)Only the most recent of3 resultswithin the time period is included. Narrative This result has an attachment that is no t available. Unknown MEDIA MGR SCAN EXT ORDR/RSLT (ABNORMAL) Hemogram (02/19/2022 8:06 AM EDT)Only the most recent of9 results within the time period is included. Analysis Performed At Patho logist Time Signature WBC 7.2 4.0 - 9.5 [facility] x10(3)/[facility] LABORATORY RBC 4.41 (L) 4.58 - [facility] 5.54 [facility] x10(6)/[facility] LABORATORY Hemoglobin 13.2 (L) 13.7 - [facility] 16.5 g/dL [facility] LABORATORY Hematocrit 40.9 40.5 - [facility] 48.5 % [facility] LABORATORY MCV 92.7 82.9 - [facility] 93.1 [facility] LABORATORY MCH 29.9 27.5 - [place] [facility] 32.1 pg [facility] LABORATORY MCHC 32.3 32.0 - [facility] 35.7 g/dL [facility] LAB[facility] Platelets 191 145 - 357 [facility] x10(3)/[facility] LABORATORY RDWSD 53.6 (H) 36.0 - [place] 45.0 [facility] LABORATORY RDWCV 15.6 (H) 11.4 - [facility] 13.8 % [facility] LABORATORY MPV 8.7 7.6 - 12.9 [facility] nRBC % Auto 0.0 % [facility] LABORATORY nRBC Abs Auto 0.000 0.000 - [place] 0.000 [facility] x10(3)/[facility] LABORATORY Specimen Anatomical Collection Method Collection Time Receive d Time (Source) Location / / Volume Laterality Blood 02/19/2022 8:06 AM 8:09 EDT AM EDT Resulting Agency Comment Spec In Lab Liz Virgilio BROWN HEMATOLOGY ORDERABLES Performing Organization Address City/State/ZIP [place] [address] (ABNORMAL) Differential, Automated (02/19/2022 8:06 AM EDT)Only the most recent of9 resultswithin the time period is included. [facility] gist Method Time Signature Neutrophils % 76.0 % [facility] LABORATORY Neutr Abs (ANC) 5.49 1.70 - [facility] 6.10 [facility] x10(3)/[facility] LABORATORY Lymphocytes % 10.8 % [facility] LABORATORY Lymphocytes Abs 0.8 (L) 0.9 - 3.2 [facility] x10(3)/[facility] LABORATORY Monocytes % 10.2 % [facility] LABORATORY Monocyte Abs 0.7 0.3 - 0.9 [facility] x10(3)/[facility] LABORATORY Eosinophils % 1.2 % [facility] LABORATORY Eosinophils Abs 0.1 0.0 - 0.4 [facility] x10(3)/[facility] LABORATORY Basophils % 0.8 % [facility] LABORATORY Basophils Abs 0.1 0.0 - 0.1 [facility] x10(3)/[facility] LABORATORY Immature Gran % 1.00 % [facility] LABORATORY Comment: Immature [...] Liz BROWN HEMATOLOGY ORDERABLES Performing Organization Address [facility] Phon e Number [address] (ABNORMAL) pro-Brain Natriuretic Peptide (02/19/2022 8:06 AM EDT)Only the most recent of2 resultswithin the time period is included. P athologist Signature ProBNP 984 (H) <=449 pg/mL [facility] LABORATORY Specimen Anatomical Collection Method Collection Time Receive d Time (Source) Location / / Volume Laterality Blood 02/19/2022 8:06 AM 2 8:09 EDT AM EDT Resulting Agency Comment Spec In Lab Zulma Plunkett MD CHEMISTRY ORDERABLES Performing Organization Address [facility] [place] [address] POCT Glucose (01/30/2022 1:41 PM EDT)Only the most recent of36 resultswithin the time period is included. P athologist Signature POC Glucose 148 65 - 199 [facility] mg/dL [facility] LABOR[facility]ORY Comment: Supplemental ranges: <140 mg/dL before meals <180 mg/dL all other times of the day Specimen Anatomical Collection Method Collection Time Receive d Time (Source) Location / / Volume Laterality Blood 01/30/2022 1:41 PM 2 1:41 EDT PM EDT Vitaliy Nobles MD POINT OF CARE TEST ORDERABLE S Performing Organization Address City/[facility] Phon e Number [address] EKG 12 Lead (01/30/2022 [...] 435 ms MUSE SYSTEM (Bezet) Calculated P [place] 41 degrees MUSE SYSTEM Calculated R [place] -27 degrees MUSE SYSTEM Calculated T [place] 104 degrees MUSE SYSTEM INTERPRETATION Normal sinus rhythm MUSE SYSTEM Anterolateral infarct (cited on or before 09-DEC-2021) Abnormal ECG When compared with ECG of 10-DEC-2021 11:17, No significant change was found Confirmed by Gary Perez ([id number]) on 01/30/2022 5:57:5 2 PM Specimen Anatomical [...] SYSTEM - 01/30/2022 2:09 PM ED T ?[facility] ? Cardiac Cathete rization/Intervention Report ? Patient Name: Don Fatima Veda. ? Procedure Date: 01/30/2022 ? A #: [id number] ? Primary Physician: Nobles, Vitaliy P ? Case #: [id number] ? File Name: [id number] ? Catheterization Order Number: [id number] ? [facility] ? Final Report [place], [place] ? Patient Name: ? Don E. Stewa rt ? ID#: ?[id number] ? : ?1945 ? Procedure Date: ? January 30, 2022 ? Case #: ? [id number] ? Room: ? 1 ? Case Physician: ? Fabian Lopez ?Start: ?08:54 ?Fellow: ? Eddi Elizabeth Jr., M.D. ?Admission: ??01/30/2022 ? Discharge: ??01/30/2022 ? Procedures: ?* Coronary Angiography ?* [...] CHF. The CHF is NYHA Functional Class ?II and is classified as Systoli c. The patient has a history of atrial ?fibrillation/atrial flutter. He has a history of peripheral vascular ?disease. The patient also has a history of chronic obstructive pulmonary ?disease. Prior to the initiatio n of this procedure, the patient was ?designated as ASA Class III. [facility] clinical frailty scale is 5: Mildly ?Frail. [...] procedure was Urgent. The indication for ?the ammunition assembly laborer visit is stable kn own CAD. [...] guiding catheter an d a 3.5 Fr [employer] [facility] [address] ??20 Mhz ?using Manual pullback. ??Imagin [...] ?? A premounted 2.00 x 26 mm Gillespie Midland (TUCKER) ? was deployed wi th a [...] Wedelivered along 2.0 x 26 mm ORION Midland ? TUCKER stent and p ositioned it [...] dose administered prior to arrival in the ammunition assembly laborer. ?Recommended anti-platelet/anti- thrombotic regimen: ?Continue aspirin [...] this regimen. C onsult [facility] Interventional Cardiology for ?questions. ?The 1 year bleeding risk as nusrat culated by the PRECISE DAPT score is High ?risk. ?High Bleeding Risk - Anticoagul ation and DAPT: ?- ??Assess ischemic and bleedin g risks using validated risk predictors ?(e.g. CHADS2-VASC, HAS-BLED, AK ECISE DAPT, DAPT Score) ?- ??Keep anticoagulant [...] RPDA using a 2.0 x 26 mm [employer] and [employer] TUCKER stent. ?This completes the revasculariz ation [...] cardiac rehab. ?The attending physician was linda t for the entire procedure. ?Dr. Vitaliy Nobles M.D. performed th e coronary angiography, left heart ?catheterization, bypass graft stud y, IVUS # coronary, stent ?insertion-coronary and peripheral intravascular ultrasound. ? Vitaliy P Nobles, M.D. ? Electronically Signed by: Vitaliy P Nobles, M .D. ? Report Finalized: 01/30/2022 ??14:02 ? Report Last Ammended: 03/06/2022 ??12:08 ? Procedure Note Vitaliy Nobles MD - 03/06/2022 [facility] Cardiac Catheterization/Intervention Re port Patient Name: Don Fatima Procedure Date: 01/30/2022 A #: [id number] Primary Physician: Vitaliy Nobles Case #: [id number] File Name: [id number] Catheterization Order Number: [id number] [facility] Final Report [place], [place] Patient Name: Don Fatima ID#: [id number] : 1945 Procedure Date: January 30, 2022 Case #: [id number] Room: 1 Case Physician: Vitaliy Nobles M.D. Start: 08:54 Fellow: Eddi Elizabeth Jr., M.D. Adm ission: 01/30/2022 Discharge: 01/30/2022 Procedures: * Coronary Angiography * Left [...] CHF. The CHF is NYHA Functional Class II and is classified as Systolic. The p atient has a history of atrial fibrillation/atrial flutter. He has a h istory of peripheral vascular disease. The patient also has a history of chronic obstructive pulmonary disease. Prior to the initiation of thi s procedure, the patient was designated as ASA Class III. The [facility] c linical frailty scale is 5: Mildly [...] e was Urgent. The indication for the ammunition assembly laborer visit is stable known CAD. Chest [...] 1.5 guiding catheter and a 3.[address] [employer] [facility] [address] 20 Mhz using Manual pullback. Imaging [...] atmospheres. A premounted 2.00 x 26 mm Gillespie Midland (TUCKER) was deployed with a maximum inflation [...] along 2. 0 x 26 mm ORION Midland TUCKER stent and positioned it at the [...] administered prior t o arrival in the ammunition assembly laborer. Recommended anti-platelet/anti-thrombot ic regimen: Continue aspirin [...] require modification of this regimen. Consult [facility] Interventional Cardiology for questions. The 1 year [...] using a 2.0 x 26 mm ORION Midland TUCKER stent. This completes the revascularization of [...] by: Yoselin Lopez Report Finalized: 01/30/2022 14:02 Report Last Ammended: 03/06/2022 12:08 Vitaliy Nobles MD CARDIAC CATH ORDERABLES Performing [...] Glucose 152 (H) 65 - 99 [facility] Fasting mg/dL [facility] LABORATORY Comment: ?Fasting* Glucose Interpretive C kanchaneria Normal ?65-99 mg/dL Impaired Fasting glucose ?100-125 [...] estions. Chloride 105 98 - 107 mmol/L [facility] LABORATORY CO2 21 (L) 22 - 31 mmol/L [facility] LABORATORY Anion Gap 17 (H) 5 - 15 mmol/L [facility] LABORATORY Calcium 8.9 8.5 - 10.5 mg/dL [facility] LABORATORY Estimated GFR 38 (L) >=60 mL/min/1.73 m?? [facility] [...] Organization Address City/State/ZIP [place] [address] (ABNORMAL) Prothrombin Time (12/12/2021 4:51 AM EDT)Only the most recent of4 resultswithin the time period is included. athologist Signature PT 14.9 (H) 9.4 - 12.5 [facility] LABORATORY INR 1.3 [facility] LABORATORY Comment: An INR [...] Organization Address City/State/ZIP Code Phon e Number [address] Magnesium (12/12/2021 4:51 AM EDT)Only the most recent of5 resultswithin the time period is included. athologist Signature Magnesium 1.02 0.69 - 1.07 [facility] mmol/L [facility] LABORATORY Specimen Anatomical Collection Method Collection Time Receive d Time (Source) Location / / Volume Laterality Blood 12/12/2021 4:51 AM 2 5:06 EDT AM EDT Resulting Agency Comment Spec In Lab Iker Cuevas MD CHEMISTRY ORDERABLES Performing Organization Address City/State/ZIP Code Phon e Number [address] COVID-19 PCR (12/11/2021 10:13 [...] diagnosis of COVID-19 is performed using the [employer] S-CoV-2 Assay as authorized by the FDA Emergency Use Authorization (EUA). This EUA assay is intended for In-vitro Diagnostic (IVD) use with respiratory sp ecimens such as nasopharyngeal swabs collected from individuals during the ac terrence phase of infection. This assay is performed based on the instructions for use provided by [employer] and additional guidance provided by CDC and FDA. Testing is performed in the Clinical Genomics and Advanced Technolog y Laboratory within the Department of Pathology and Laboratory Medicine at [facility], certified under the Clinical Laboratory Improvement Amendments [...] clinical management guidance information are available at [facility] Coronavirus Disease 2019 (COVID-19) webpage under Information fo r Healthcare Professionals (https://www.cdc.gov/coronavirus/2019-nc ov/hcp/index.html) Additional information about this and ot her EUA tests can be found in provider and patient fact sheets at the following FDA website: https://www.fda.gov/medical-devices/lwiuanbrkdp-nxbtndb-2790-rsvbr-46-boqprtbov- zlr-zmrtggmytmvglt-xduwono-devices/ynlmo-kpmyywyhzbh-einc SARS-Cov-2 RNA Source CARE TRANSITIONS MANAGER Swab [facility] LABORATORY Specimen (Source) Anatomical Collection Method Collection Time Re ceived Time Location / / Volume Laterality Nasopharyngeal Swab 12/11/2021 10:13 0503/2022 AM EDT 11:16 AM EDT Comment: Symptoms->Surveillance Resulting Agency Comment Spec In Lab Iker Cuevas MD MICROBIOLOGY - GENERAL ORDER [place] Performing Organization Address City/[facility]/ZIP [facility] [place] [address] Potassium (12/10/2021 7:46 PM EDT) P athologist Signature Potassium 4.2 3.5 - 5.0 [facility] mmol/L [facility] Comment: Please note: ??Patients with [...] Address City/[facility]/ZIP [facility] Phon e Number [address] (ABNORMAL) Point of Care Blood Gas Historical (12/10/2021 9:04 AM EDT) Patholo gist Method Time Signature POC pH 7.40 7.35 - [facility] 7.45 [facility] LABORATORY POC PCO2 40 35 - 45 [facility] LABORATORY POC PO2 63 (L) 85 - 104 [facility] LABORATORY POC Base Excess 0.0 -3.0 - 3.0 [facility] K mmol/L [facility] POC HCO3 24.8 20.0 - [facility] 26.0 [facility] mmol/LDS HOSPITAL LABORATORY POC Sodium 143 135 - 145 [facility] mmol/L [facility] POC Potassium 3.7 3.5 - 5.0 [facility] mmol/L [facility] POC Ionized Ca 1.07 (L) 1.15 - [facility] 1.33 [facility]VA [facility] LABORATORY POC Hematocrit 30.0 (L) 40.0 - [facility] 51.0 % [facility] POC Calc Hgb 10.2 (L) 13.7 - [facility] 17.5 g/dL [facility] Comment: The calculation of hemoglobin f rom hematocrit assumes a normal MCHC. POC Bgas Loc CC LAB [facility] LABORATORY Specimen Anatomical Collection Method Collection Time Receive d Time (Source) Location / / Volume Laterality Blood 12/10/2021 9:04 AM 2 EDT 12:00 PM EDT Ifeanyi Truong MD CHEMISTRY ORDERABLES Performing Organization Address City/State/ZIP [place] [address] Heparin (unfractionated) Level (12/10/2021 4:25 AM EDT)Only the most recent of5 resultswithin the time period is included. P athologist Signature Heparin UFH 0.69 IU/mL [facility] LABORATORY Comment: Heparin (anti-Xa) levels should be [...] Organization Address City/State/ZIP [place] [address] (ABNORMAL) Troponin (12/09/2021 6:18 AM EDT)Only the most recent of3 results within the time period is included. athologist Signature Troponin-T 1.13 (H) 0.00 - [facility] 0.00 ng/mL [facility] Comment: The 99th percentile for Troponin T is le ss than 0.01 ng/mL, any detectable cTnT concentration using this assay should be considered elevated. According to the third universal definit ion of myocardial infarction the following criteria with a clinical prese ntation consistent with acute myocardial ischemia meets the diagnosis for a myocardial infarction (AK). Detection of a rise and/or fall of [...] additional sample may be indicated. Reference: Third Frontier Definition of Myocardial Infarction. Journal of the [place] College of Cardiology 2012;60:1581-98 Specimen Anatomical Collection Method Collection Time Receive d Time (Source) Location / / Volume Laterality Blood 12/09/2021 6:18 AM 2 6:33 EDT AM EDT Resulting Agency Comment Spec In Lab Iker Cuevas MD CHEMISTRY ORDERABLES Performing Organization Address City/[facility]/ZIP Code Phon e Number [place] [phone] TSH (12/09/2021 6:18 AM EDT) P athologist Signature TSH 1.60 0.27 - 4.20 [facility] mcIU/mL [facility] Comment: Reference Interval (mcIU/mL): Females: [...] [facility]/ZIP Code Phon e Number [place] [phone] (ABNORMAL) Hemoglobin A1c (12/09/2021 6:18 AM EDT) Analysis Performed At Patho logist Time Signature Hemoglobin A1C 7.4 (H) 4.3 - 5.6 [facility] [...] with hemoglobinopathies. Additional resources are available on [facility] ADA website. Macario HAMMOND, Ruthann J, Deysi R, et al. ??Tr anslating the A1C assay into estimated average glucose values. ??Diabetes Care 2008:31(8):9753-9467. Specimen Anatomical Collection Method Collection Time Receive d Time (Source) Location / / Volume Laterality Blood Venous Draw / 12/09/2021 6:18 AM 12/10/19 22 Unknown EDT 12:24 PM EDT Resulting Agency Comment Spec In Lab Migdalia BROWN CHEMISTRY ORDERABLES Performing Organization Address City/State/ZIP [place] [address] Hepatic Function Panel (12/09/2021 6:18 AM EDT) athologist Signature Total Protein 7.3 6.1 - 8.0 [facility] g/dL [facility] Albumin 4.2 3.2 - 5.2 [facility] g/dL [facility] AST 25 0 - 39 [facility] unit/L [facility] ALT 15 0 - 55 [facility] unit/L [facility] Alk Phos 75 40 - 130 [facility] unit/L [facility] Total 1.1 0.2 - 1.3 [facility] Bilirubin mg/dL [facility] Bili, Direct 0.2 0.0 - 0.3 [facility] mg/dL [facility] Specimen Anatomical Collection Method Collection Time Receive d Time (Source) Location / / Volume Laterality Blood 12/09/2021 6:18 AM 6:33 EDT AM EDT Resulting Agency Comment Spec In Lab Iker Cuevas MD CHEMISTRY ORDERABLES Performing Organization Address City/State/ZIP [place] [address] Lipid Panel (Reflex Direct LDL) (12/09/2021 6:18 AM EDT) athologist Signature Chol, Total 105 mg/dL [facility] Comment: Lower Risk: <200 mg/dL Average Risk: 200-239 mg/dL Higher Risk: >ft=339 mg/dL Triglycerides 133 mg/dL [facility] Comment: Average Risk/Lower Risk: <150 mg/dL Borderline High Risk: 150-199 mg/dL High Risk: 200-499 mg/dL Very High Risk: >zh=807 mg/dL HDL 42 mg/dL [facility] Comment: Males: ?? Higher Risk: <40 mg/dL Females: ?? Higher Risk: <50 mg/dL LDL Cholesterol 36 mg/dL [facility] Comment: Lowest Risk: <100 mg/dL Lower Risk: 100-129 mg/dL Borderline High Risk: 130-159 mg/dL High Risk: 160-189 mg/dL Very High Risk: >ml=858 mg/dL Chol/HDL Ratio 2.5 ratio [facility] Lipid Interpretation See Note [facility] Comment: Lipid management should be guided by a p atient? s ASCVD risk, goals and preferences. ACC/AHA Guidelines recommend high intens ity statin if clinical ASCVD or LDL greater than or equal to 190 mg/dL. http://Absynth Biologicsurl.com/AXY-IMT-Xxjnogooj Adults aged 40-75 with LDL 70-189 mg/dL should have their 10 year ASCVD risk estimated with the ACC/AHA ASCVD risk es timator http://tools.acc.org/YDEZT-Momv-Xdhoefuf r/ Statin should be discussed if risk [...] Address City/State/ZIP [place] [address] XR Chest One View [...] who have questions please contact the health cardiac care nurse that requested your imaging first. ? [...] ho have questions please contact the health cardiac care nurse that requested your imaging first. Electronically signed by: Yoselin White, [facility] ([phone]), at 12/09/2021 5:35 AM Amber Sanches MD IMG DX ORDERABLES (ABNORMAL) BLOOD GAS 2 ARTERIAL (12/09/2021 5:14 AM EDT) Analysis Performed At Patho logis Time Signature pH Art 7.43 7.35 - [facility] 7.45 [facility] pCO2 Art 36 35 - 45 [facility] LABORATORY pO2 Art 67 (L) 85 - 104 [facility] LABORATORY HCO3 Art 23.4 20.0 - [facility] 26.0 [facility] mmol/L HOSPITAL LABORATORY BE Art -0.9 -3.0 - 3.0 [facility] mmol/L [facility] Hgb Blood Gas 13.2 (L) 13.7 - [facility] 16.5 g/dL [facility] O2HB Art 91.3 (L) 94.0 - [facility] 97.0 % [facility] COHB Art 0.4 % [facility] Comment: Nonsmokers: 0.5-1.5% COHB Smokers: Variable, but usually less than 10% Toxic: 20-30% COHB Lethal: Greater than 60% COHB METHB Art 0.4 <=1.5 % [facility] Na Whole Blood 138 135 - 145 mmol/L [facility] K Whole Blood 4.1 3.5 - 5.0 mmol/L [facility] Comment: Please note: Patients with WBC >100,000 may have falsely elevated Potassium levels. Contact the Clinical Chemistry L aboratory if there are any questions. ICa Whole Blood 1.09 (L) 1.15 - 1.33 mmol/L [facility] PF Ratio Art 191 [facility] Specimen Anatomical Collection Method Collection Time Receive d Time (Source) Location / / Volume Laterality Blood 12/09/2021 5:14 AM 5:14 EDT AM EDT Iker Cuevas MD CHEMISTRY ORDERABLES Performing Organization Address City/State/ZIP [place] [address] COVID-19 PCR (12/08/2021 5:00 PM EDT) [facility] Method Time Signature SARS-CoV-2 Not Detected Not Detected BARBARA RNA PCR [facility] Comment: This result should be [...] using the Simplexa COVID-19 Direct Assay by [employer] as authorized by the FDA issued Emergency [...] Department of Pathology and Laboratory Medicine at [facility], certified under the Clinical Laboratory [...] fact sheets at the following FDA website: https://www.fda.gov/medical-devices/xrkvkgfzykm-svnfklz-1544-otpnn-91-rbjoaxjhb- lqy-aklrgptobzntvi-bxzsdwu-devices/imwcq-keqijxakajw-aizt SARS-CoV-2 Source CARE TRANSITIONS MANAGER Swab [facility] LABORATORY Specimen (Source) Anatomical Collection Method Collection Time Re ceived Time Location / / Volume Laterality Nasopharyngeal Swab 12/08/2021 5:00 12/08 PM EDT 6:03 PM EDT Comment: Symptoms->Surveillance Resulting Agency Comment Spec In Lab Iker Cuevas MD MICROBIOLOGY - GENERAL ORDER [place] Performing Organization Address City/State/Z[place] [address] Scan Doc: Echo (12/08/2021) [...] Address City/State/ZIP Code Phon e Number [place], [place] Scan Doc: ECG (12/07/2021) Narrative This result has an attachment that is no t available. 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
--- OUTSIDE RECORDS SUMMARY | 2022-03-09 15:22 | XMS_ITS | Encounter Summary ---
:1945 Author Organization [facility] [place] [address] Care Team Providers Name Role Phone Lovely Vicente MD Primary Care Provider Encounter Details Date Type Department Care Team Description 02/24/2022 Notes Only Care [place] [address] Social History Tobacco Use Types Packs/Day [...] return to the Medication Assistance Program. The [facility] office will follow up with the patient in 5 business days to see if the patient has received the application and if they have any questions. documented in this encounter Plan of Treatment Upcoming Encounters Date Type Specialty Care Team Description 03/26/2022 Office Visit Cardiology Vitaliy Nobles MD [facility] [address] [place], [place] [address] (Wo rk) 06/10/2022 Office Visit Dermatology Laura Scherer MD [facility] ER DR TE[address] [place], [place] [address] (Wo rk) documented as of this encounter Visit Diagnoses Not on filedocumented in this encounter Care Teams Instruction Librarian Relationship Specialty Start Date End Date Lovely Vicente MD PCP - General 04/16/[address] [place] [address] documented as of this encounter
--- OUTSIDE RECORDS SUMMARY | 2022-03-09 15:22 | XMS_ITS | Encounter Summary ---
:1945 [place] [address] Care Team Providers Name Role Phone Lovely Vicente MD Primary Care Provider Reason for Visit Reason Onset Date Comments Follow-up 03/06/2022 Dave Bueno Encounter Details Date Type Department Care Team Description 03/06/2022 Telephone Cardiology at [facility] Martha Comer, Follow-up ([facility] Start) [place] [address] Social History Tobacco Use Types Packs/Day Years Used Date Former Smoker Cigarettes 3 5 Quit: 07/26/18 69 Smokeless Tobacco: Never Used Alcohol Use Standard Drinks/Week Comments No 0 (1 standard drink = 0.6 oz pure alcoho l) Sex Assigned at Date Recorded Not on file documented as of this encounter Miscellaneous Notes Telephone Encounter - Martha Comer, RN - 03/06/2022 9:43 AM EDT Message reviewed with JUDE Poole who would like the pt to restart the Metoprolol 25 mg q pm. Hold if Systolic BP<90 and/or HR < 50 bpm. They are using 50 mg tablets and would like to get 25 mg tablets. Updated prescription pended to STEPHANIE Poole in a separate refill encounter. given the above instructions and asked to call next week with his BP/HR readings. May need to adjust the Metoprolol or be able to increase the Entresto. Awaiting a call back. Telephone Encounter - Martha Comer RN - 03/06/2022 9:34 AM EDT calling to report that the pt had gotten his labs done at [facility] yesterday. Results received, scanned and entered into [facility]. Results reviewed with . Potassium WNL, BUN/Creatinine also improved. Pt is feeling good has more energy. No dizziness or feeling LH. BP/HR readings are: 123/64, 137/63, 140/64, HR 71-79. reports that Dr Nobles told them to take his BP daily before his pm Metoprolol 12.5 mg daily and hold if low. She did not know what he meant as Low so she has not bee giving it to him all this week. documented in this encounter Plan of Treatment Upcoming Encounters Date Type Specialty Care Team Description 03/26/2022 Office Visit Cardiology Vitaliy Nobles MD [facility] [address] [place], [place] [address] ( rk) 06/10/2022 Office Visit Dermatology Laura Scherer MD [facility] DR [address] [place], [place] [address] ( rk) documented as of this encounter Procedures Procedure Name Priority Date/Time Associated Diagnosis Comme nts BASIC METABOLIC Routine 03/05/2022 7:04 AM Result s for this PANEL (NON-FASTING) EDT procedur e are in the results section. documented in this encounter Results (ABNORMAL) Basic Metabolic Panel (non-fasting) (03/05/2022 7:04 AM EDT) athologist Signature Glucose Lvl 132 EXTERNAL LAB [...] Blood 03/05/2022 7:04 AM EDT Historical Provider MD CHEMISTRY ORDERABLES Performing Organization Address City/State/ZIP Code Phon e Number EXTERNAL FACILITY EXTERNAL LAB documented in this encounter Visit Diagnoses Not on filedocumented in this encounter Care Teams Risk Tech Relationship Specialty Start Date End Date Lovely Vicente MD PCP - General 04/16/[address] [place] [address] documented as of this encounter
--- OUTSIDE RECORDS SUMMARY | 2022-03-09 15:22 | XMS_ITS | Encounter Summary ---
:1945 Author Organization [facility] Address [facility] [place] [address] Care Team Providers Name Role Phone Lovely Vicente MD Primary Care Provider Reason for Visit Reason Onset Date Comments Medication Refill 03/06/2022 Metoprolol Succinate Encounter Details Date Type Department Care Team Description 03/06/2022 Refill Cardiology at [facility] Liz Poole PA Medication Refill [facility] (Ca toprolol Succinate) [place] [address] Cardiology Dept [phone] [place], [place] [address] (Wo rk) Social History Tobacco [...] Care Team Description 03/26/2022 Office Visit Cardiology Viatliy Nobles MD [facility] [address] [place], [place] [address] (Wo rk) 06/10/2022 Office Visit Dermatology Laura Scherer MD [facility] DR [address] [place], [place] [address] (Wo rk) documented as of this encounter Visit Diagnoses Diagnosis Chronic systolic heart failure Cardiomyopathy, ischemic Other specified forms of chronic ischemi c heart disease documented in this encounter Care Teams Data Mining Analyst Relationship Specialty Start Date End Date Lovely Vicente MD PCP - General 04/16/[address] [place] [address] documented as of this encounter
--- OUTSIDE RECORDS SUMMARY | 2022-03-09 15:22 | XMS_ITS | Encounter Summary ---
:1945 Author Organization [facility] Address [facility] [place] [address] Care Team Providers Name Role Phone Lovely Vicente MD Primary Care Provider Reason for Visit Reason Comments Prior Authorization Entresto 24-26mg tablets Encounter Details Date Type Department Care Team Description 02/20/2022 Specialty Pharmacy [place] [facility] Lamberto Smith Prior Authorization [facility] J (Entresto 24-26mg Drive tablets) [place] [id number] Social History Tobacco Use Types Packs/Day Years [...] Don Fatima Patient : 1945 Patient Address: [address] [place] [address] [place] [address] (home) Medication Name: ENTRESTO 24 MG-26 MG TABLET Medication ID: [id number] Patient [place] [facility] 4A Patient Location Comment: Medication Strength Frequency Requested: Entresto 24-26mg tablets / One tablet twice daily Qty/Day Supply: New Start: New to Therapy Diagnosis & ICD-10 Code: Chronic systolic heart failure, I50.22 Subscriber Insurance: Inspro [facility] Subscriber Insurance Comment: Fax: Physician: ARIK CARRERA Physician Comment : PA Status: NO PA REQUIRED Insurance mandated Pharmacy: Unknown Fillable at [facility]: Yes Insurance requirements/notes: None Copay: $119.01 (goes to coverage gap/odalys monteiro) Copay assistance: [employer] Copay assistance comment: If cost isn't affordable, then we'll suggest enrollment in the currently open [facility] Heart Failure zoila, which provides up to $1000 in copay assistance. If zoila closes, or doesn't work out, then the patient can attempt enrollment in the resource specialist assistance program, the [employer] Patient Assistance [employer] (NPAF). At which point we'd refer to [facility] for assistance with enrollment. [...] MD [facility] [address] [place], [place] [address] (Wo rk) 06/10/2022 Office Visit Dermatology Laura Scherer MD [facility] DR TE[address] [place], [place] [address] (Wo rk) documented as of this encounter Visit Diagnoses Not on filedocumented in this encounter Care Teams Infertility Medical Assistant Relationship Specialty Start Date End Date Lovely Vicente MD PCP - General 04/16/[address] [place] [address] documented as of this encounter
--- OUTSIDE RECORDS SUMMARY | 2022-03-09 15:22 | XMS_ITS | Encounter Summary ---
:1945 [place] [address] Care Team Providers Name Role Phone Lovely Vicente MD Primary Care Provider Reason for Visit Reason Onset Date Comments Follow-up 02/26/2022 Entresto start Encounter Details Date Type Department Care Team Description 02/26/2022 Telephone Cardiology at [facility] Martha Comer, Follow-up ([facility] RN start) [place] [address] Social History Tobacco Use Types Packs/Day [...] on 03/05/22 Getting labs done at : [facility] Order e-faxed by STEPHANIE Poole on 02/24/22. /pt to call on 03/05/22 letting us know to get the BMP results from [facility]. Nursing to get results and contact pt to see how he is tolerating the Entresto. They are to call sooner with any questions/concerns. documented in this encounter Plan of Treatment Upcoming Encounters Date Type Specialty Care Team Description 03/26/2022 Office Visit Cardiology Vitaliy Nobles MD [facility] CARDIOLOGY [place], [place] [address] (Wo rk) 06/10/2022 Office Visit Dermatology Laura Scherer MD [facility] DR [address] [place], [place] [address] (Wo rk) documented as of this encounter Visit Diagnoses Not on filedocumented in this encounter Care Teams Airport Shuttle Driver Relationship Specialty Start Date End Date Lovely Vicente MD PCP - General 04/16/[address] [place] [address] documented as of this encounter
--- OUTSIDE RECORDS SUMMARY | 2022-03-09 15:22 | XMS_ITS | Encounter Summary ---
:1945 Author Organization [facility] [place] [address] Care Team Providers Name Role Phone Lovely Vicente MD Primary Care Provider Encounter Details Date Type Department Care Team Description 02/24/2022 Orders Only Cardiology at [facility] Liz Poole, Chronic systolic heart [facility] [place] [address] Cardiology Dept [place], [place] [address] Social History Tobacco Use Types [...] Nobles MD [facility] ER DR TADE[address] [place], [place] [address] (Wo rk) 06/10/2022 Office Visit Dermatology Laura Scherer MD [facility] ER DR TEJA [address] [place], [place] [address] (Wo rk) documented as of this encounter Visit Diagnoses Diagnosis Chronic systolic heart failure documented in this encounter Care Teams Keyboarding Teacher Relationship Specialty Start Date End Date Lovely Vicente MD PCP - General 04/16/[address] [place] [address] [address] [place] [address] documented as of this encounter
--- OUTSIDE RECORDS SUMMARY | 2022-03-09 15:22 | XMS_ITS | Encounter Summary ---
:1945 Author Organization [facility] [place] [address] Care Team Providers Name Role Phone Lovely Vicente MD Primary Care Provider Encounter Details Date Type Department Care Team Description 03/06/2022 Refill Cardiology [place] [facility] [place] Poole PA [facility] [place] [phone] Cardiology Dept [phone] [place], [place] [address] (Wo rk) Social History Tobacco [...] [facility] [place] [address] [place], [place] [address] (Wo rk) 06/10/2022 Office Visit Dermatology Laura Scherer MD [facility] ER DR TEJA [address] [place]LOG[place], [place] [address] (Wo rk) documented as of this encounter Visit Diagnoses Not on filedocumented in this encounter Care Teams Zoology Professor Relationship Specialty Start Date End Date Lovely Vicente MD PCP - General 04/16/[address] [facility] [place] [address] documented as of this encounter
--- OUTSIDE RECORDS SUMMARY | 2022-03-09 15:23 | XMS_ITS | Encounter Summary ---
:1945 Author Organization [facility] [place] [address] Care Team Providers Name Role Phone Lovely Vicente MD Primary Care Provider Reason for Visit Reason Onset Date Comments Advice Only 01/28/2022 Encounter Details Date Type Department Care Team Description 01/28/2022 Telephone Cardiology at [facility] Chitra Angela, [place] [address] Social History Tobacco Use Types Packs/Day [...] Fatima assists patient with medications. Number for refuse laborer scheduling given and she will call them to verify this information Meds reviewed. As per our form from refuse laborer Eliquis hold for 48 hours prior. [...] MD [facility] [address] T[address] [place], [place] [address] (Wo rk) 06/10/2022 Office Visit Dermatology Laura Scherer MD [facility] [address] TE[address] [place], [place] [address] (Wo rk) documented as of this encounter Visit Diagnoses Not on filedocumented in this encounter Care Teams Environmental Field Professional Relationship Specialty Start Date End Date Lovely Vicente MD PCP - General 04/16/[address] [place] [address] documented as of this encounter
--- OUTSIDE RECORDS SUMMARY | 2022-03-09 15:23 | XMS_ITS | Encounter Summary ---
:1945 Author Organization [facility] [place] [address] Care Team Providers Name Role Phone Lovely Vicente MD Primary Care Provider Reason for Visit Reason Onset Date Comments Medication Refill 12/12/2021 Torsemide Encounter Details Date Type Department Care Team Description 12/12/2021 Refill Cardiology at [facility] Janneth Padilla, Medication Refill [facility] STEPHANIE (Torsemide) [place] [address] CARDIOLOGY DEPT. [place], [place] [address] (Wo rk) Social History Tobacco [...] Nobles MD [facility] [address] [place], [place] [address] (Wo rk) 06/10/2022 Office Visit Dermatology Laura Scherer MD [facility] [address] [place], [place] [address] (Wo rk) documented as of this encounter Visit Diagnoses Diagnosis Chronic systolic heart failure documented in this encounter Care Teams Gluing Machine Operator Relationship Specialty Start Date End Date Lovely Vicente MD PCP - General 04/16/[address] [place] [address] documented as of this encounter
--- OUTSIDE RECORDS SUMMARY | 2022-03-09 15:23 | XMS_ITS | Encounter Summary ---
:1945 Author Organization [facility] [place] [address] Care Team Providers Name Role Phone Lovely Vicente MD Primary Care Provider Reason for Visit Auth/Cert Specialty Diagnoses / Procedures Referred By Contact Refer red To Contact Diagnoses ASCVD (arteriosclerotic cardiovascular disease) [I25.10] Vitaliy Nobles MD [facility] Procedures PRO PERC TRLUML CORONARY STENT W/ANGIO ONE ART/BRANCH CARDIAC CATHETERIZATION STENT PLACEMENT-SINGLE MAJOR CORONARY ARTERY OR BRANCH [facility] [address] Referral ID Status Reason Start Date Expiration Date Visits Requ ested Visits Authorized [id number] 1 1 Encounter Details Date Type Department Care Team Description 01/30/2022 Laboratory Lab 3L Katalina ASCVD (arterios clerotic Appointment [facility] cardiovas cular disease) [place] [address] Social History Tobacco Use Types Packs/Day Years [...] MD [facility] ER CARDIOLOGY [place], [place] [address] (Wo rk) 06/10/2022 Office Visit Dermatology Laura Scherer MD [facility] [address]-DERMAT OGY [place], [place] [address] (Wo rk) documented as of [...] (ABNORMAL) Differential, Automated (01/30/2022 7:19 AM EDT) [facility] gist Method Time Signature Neutrophils % 77.9 % [facility] Neutr Abs (ANC) 5.31 1.70 - [facility] 6.10 [facility] x10(3)/[facility] LABORATORY Lymphocytes % 12.0 % [facility] Lymphocytes Abs 0.8 (L) 0.9 - 3.2 [facility] x10(3)/[facility] LABORATORY Monocytes % 8.1 % [facility] Monocyte Abs 0.6 0.3 - 0.9 [facility] x10(3)/[facility] LABORATORY Eosinophils % 0.4 % [facility] Eosinophils Abs 0.0 0.0 - 0.4 [facility] x10(3)/[facility] LABORATORY Basophils % 0.6 % [facility] Basophils Abs 0.0 0.0 - 0.1 [facility] x10(3)/[facility] LABORATORY Immature Gran % 1.00 % [...] Gran Abs 0.07 (H) 0.00 - 0.04 x10(3)/[facility] LABORATORY Specimen Anatomical Collection Method Collection Time Receive d Time (Source) Location / / Volume Laterality Blood 01/30/2022 7:19 AM 7:21 EDT AM EDT Resulting Agency Comment Spec In Lab Zulma BROWN HEMATOLOGY ORDERABLES Performing Organization Address City/State/ZIP Code Phon e Number [place] [phone] (ABNORMAL) Hemogram (01/30/2022 7:19 AM EDT) Analysis Performed At Patho logist Time Signature WBC 6.8 4.0 - 9.5 [facility] x10(3)/[facility] LABORATORY RBC 4.32 (L) 4.58 - [place] [facility] 5.54 [facility] x10(6)/[facility] LABORATORY Hemoglobin 13.0 (L) 13.7 - [facility] 16.5 g/dL [facility] Hematocrit 39.8 (L) 40.5 - [facility] 48.5 % [facility] MCV 92.1 82.9 - [facility] 93.1 [facility] LABORATORY MCH 30.1 27.5 - [place] [facility] 32.1 pg [facility] MCHC 32.7 32.0 - [facility] 35.7 g/dL [facility] Platelets 172 145 - 357 [facility] x10(3)/[facility] LABORATORY RDWSD 54.5 (H) 36.0 - [place] [facility] 45.0 [facility] LABORATORY RDWCV 16.2 (H) 11.4 - [facility] 13.8 % [facility] LABORATORY MPV 9.0 7.6 - 12.9 [facility] LABORATORY nRBC % Auto 0.0 % [facility] nRBC Abs Auto 0.000 0.000 - [facility] 0.000 [facility] x10(3)/[facility] LABORATORY Specimen Anatomical Collection Method Collection Time Receive d Time (Source) Location / / Volume Laterality Blood 01/30/2022 7:19 AM 7:21 EDT AM EDT Resulting Agency Comment Spec In Lab Zulma BROWN HEMATOLOGY ORDERABLES Performing Organization Address City/State/ZIP [place] [address] (ABNORMAL) Basic Metabolic Panel (non-fasting) (01/30/2022 7:19 AM EDT) P athologist Signature Glucose Lvl 237 (H) 65 - 199 [facility] mg/dL [facility] Comment: Diabetes: >=200 mg/dL plus symp toms BUN 34 (H) 10 - 20 mg/dL [facility] LABORATORY Creatinine 1.45 0.80 - 1.50 mg/dL [facility] LABORATORY Sodium 141 135 - 145 mmol/L [facility] [...] 107 mmol/L [facility] CO2 30 22 - 31 mmol/L [facility] Anion Gap 11 5 - 15 mmol/L [facility] LABORATORY Calcium 9.5 8.5 - 10.5 mg/dL [facility] Estimated GFR 50 (L) >=60 mL/min/1.73 m?? [facility] [...] City/State/ZIP Code Phon e Number [place] [phone] documented in this encounter Visit Diagnoses Diagnosis ASCVD (arteriosclerotic cardiovascular d isease) Unspecified cardiovascular disease documented in this encounter Care Teams Vocational Ed Instructor Relationship Specialty Start Date End Date Lovely Vicente MD PCP - General 04/16/[address] [place] [address] documented as of this encounter
--- OUTSIDE RECORDS SUMMARY | 2022-03-09 15:23 | XMS_ITS | Encounter Summary ---
:1945 Author Organization [facility] Address [facility] [place] [address] Care Team Providers Name Role Phone Lvoely Vicente MD Primary Care Provider Reason for Visit Auth/Cert Specialty Diagnoses / Procedures Referred By Contact Refer red To Contact Diagnoses ASCVD (arteriosclerotic cardiovascular disease) [I25.10] Vitaliy Nobles MD [facility] Procedures PRO PERC TRLUML CORONARY STENT W/ANGIO ONE ART/BRANCH CARDIAC CATHETERIZATION STENT PLACEMENT-SINGLE MAJOR CORONARY ARTERY OR BRANCH [facility] [place] [address] Referral ID Status Reason Start Date Expiration Date Visits Requ ested Visits Authorized [id number] 1 1 Encounter Details Date Type Department Care Team Description 01/30/2022 Surgery Chemical Plant Operator Asa Coluter MD CARDIAC CATHETERIZATION [facility] [place] [address] [place] [address] [phone] (Wo rk) Social History Tobacco Use Types [...] and Clopidogrel. Please follow up with your principal process engineer in the next 4-6 weeks. We have made a referral to cardiac rehab. Please see the attached instructions regarding care to your right wrist access site. AttachmentsThe following attachments cannot be sent through Care Everywhere. Coronary Angiogram: Post-op (Emirati)documented in this encounter Medications at Time of [...] and 2 tablets 1 day per week. Magnesium Oxide 500 mg Take 500 mg [...] by mouth 0 04/1402/26/2022 mg Tablet daily. meTOPROLOL succinate Take 25 mg by mouth 0 03/06/2022 (TOPROL-XL) 25 mg daily. 0.5 tablet of Tablet Sustained 50 mg Release 24 hr documented as of this encounter Progress Notes Carlos Alberto Murray RN - 01/30/2022 4:54 PM EDT [facility] Short Stay Unit Discharge Note All [...] recent PCI presenting for staged PCI to [facility]. The pt states he has [...] recent PCI presenting for staged PCI to [facility]. The indications, expected benefits, and [...] had referred him to cardiac rehab at [facility] last month per HF team. He was waiting until this intervention before starting the program. Reviewed managing angina /use of sl nitroglycerin. Given parameters for home exercise. 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 We discussed short walks several times per day. Will send [facility] his discharge summary from this admission. The patient should be contacted by the Program within 1- 2 weeks from discharge. Brief Op Note - Vitaliy Nobles MD - 01/30/2022 10:19 AM EDT Images from the original note were not included. [facility] [place] [address] [place] [address] CORONARY ANGIOGRAM AND PERCUTANEOUS CORONARY INTERVENTION REPORT Patient: Don Fatima : 1945 MR number: [id number] Date of Service: 01/30/2022 [place]ling [employer] Skating Front Desk Clerk: Vitaliy Nobles MD Fellow: KEYON Elizabeth INDICATION: [...] a long 2.0 x 26 mm HARDEEP Mercer TUCKER stent and positioned it at the [...] using a 2.0 x 26 mm HARDEEP Mercer TUCKER stent. This completes the revascularization ofall [...] Nobles MD [facility] [address] [place], [place] [address] ([facility]) 06/10/2022 Office Visit Dermatology Laura Scherer MD [facility] DR TE[address] GR-DERMAT [facility] [place] [address] ([facility]) Scheduled Orders Name Type Priority Associated [...] EDT) athologist Signature Neutrophils % 71.8 % [facility] LABORATORY Neutr Abs (ANC) 3.96 1.70 - [facility] 6.10 [facility] x10(3)/[facility] LABORATORY Lymphocytes % 16.3 % [facility] Lymphocytes Abs 0.9 0.9 - 3.2 [facility] x10(3)/[facility] LABORATORY Monocytes % 10.0 % [facility] Monocyte Abs 0.6 0.3 - 0.9 [facility] x10(3)[facility] LABORATORY Eosinophils % 0.5 % [facility] Eosinophils Abs 0.0 0.0 - 0.4 [facility] x10(3)/[facility] LABORATORY Basophils % 0.5 % [facility] Basophils Abs 0.0 0.0 - 0.1 [facility] x10(3)/[facility] LABORATORY Immature Gran % 0.90 [...] Abs 0.05 (H) 0.00 - 0.04 x10(3)/[facility] LABORATORY Specimen Anatomical Collection Method Collection Time Receive d Time (Source) Location / / Volume Laterality Blood 01/30/2022 2:12 PM 2 2:37 EDT PM EDT Resulting Agency Comment Spec In Lab Eddi Elizabeth Jr., MD HEMATOLOGY ORDERABLES Performing Organization Address City/State/[place] [address] (ABNORMAL) Hemogram (01/30/2022 2:12 PM EDT) Analysis Performed At Patho logist Time Signature WBC 5.5 4.0 - 9.5 [facility] x10(3)/[facility] LABORATORY RBC 4.30 (L) 4.58 - [facility] x10(6)/[facility] LABORATORY Hemoglobin 12.7 (L) 13.7 - [facility] 16.5 g/dL [facility]ORY Hematocrit 39.4 (L) 40.5 - [facility] MCV 91.6 82.9 - [facility] [facility] MCH 29.5 27.5 - [facility] 32.[address] [facility] MCHC 32.2 32.0 - [facility] 35.7 g/dL [facility] Platelets 172 145 - 357 [facility] x10(3)/[facility] LABORATORY RDWSD 54.5 (H) 36.0 - [facility] 45.0 [facility] LABORATORY RDWCV 16.4 (H) 11.4 - [facility] 13.8 % [facility] LABORATORY MPV 9.2 7.6 - 12.9 [facility] LABORATORY nRBC % Auto 0.0 % [facility] LABORATORY nRBC Abs Auto 0.000 0.000 - [facility] 0.000 [facility] x10(3)/[facility] LABORATORY Specimen Anatomical Collection Method Collection Time Receive d Time (Source) Location / / Volume Laterality Blood 01/30/2022 2:12 PM 2 2:37 EDT PM EDT Resulting Agency Comment Spec In Lab Eddi Elizabeth Jr., MD HEMATOLOGY ORDERABLES Performing Organization Address City/State/[place] [address] (ABNORMAL) Basic Metabolic Panel (non-fasting) (01/30/2022 2:12 PM EDT) athologist Signature Glucose Lvl 163 65 - 199 [facility] mg/dL [facility]ORY Comment: Diabetes: >=200 mg/dL plus symp toms BUN 30 (H) 10 - 20 mg/dL [facility] LABORATORY Creatinine 1.47 0.80 - 1.50 mg/dL [facility] [...] Nobles MD CHEMISTRY ORDERABLES Performing Organization Address City/[facility]/ZIP [facility] Phon e Number [address] POCT Glucose (01/30/2022 1:41 PM EDT) athologist Signature POC Glucose 148 65 - 199 [facility] mg/dL [facility]ORY Comment: Supplemental ranges: <140 mg/dL before meals <180 mg/dL all other times of the day Specimen Anatomical Collection Method Collection Time Receive d Time (Source) Location / / Volume Laterality Blood 01/30/2022 1:41 PM 2 1:41 EDT PM EDT Vitaliy Nobles MD POINT OF CARE TEST ORDERABLE S Performing Organization Address City/[facility] [place] [address] POCT Glucose (01/30/2022 10:48 AM EDT) athologist Signature POC Glucose 193 65 - 199 [facility] mg/dL [facility] Comment: Supplemental ranges: <140 mg/dL before meals <180 mg/dL all other times of the day Specimen Anatomical Collection Method Collection Time Receive d Time (Source) Location / / Volume Laterality Blood 01/30/2022 10:48 01/30/2022 AM EDT 10:48 AM EDT Vitaliy Sandra Nobles MD POINT OF CARE TEST ORDERABLE S Performing Organization Address City/State/[place] [address] EKG 12 Lead (01/30/2022 10:33 AM EDT) Component Value Ref Range Test Analysis Performed Pathologis t Method Time At Signature Ventricular rate 64 BPM MUSE SYSTEM Atrial Rate 64 BPM MUSE SYSTEM P-R Interval 162 ms MUSE SYSTEM QRS Duration 94 ms MUSE SYSTEM Q-T Interval 422 ms MUSE SYSTEM QTC Calculated 435 ms MUSE SYSTEM (Bezet) Calculated P Robert Lee 41 degrees MUSE SYSTEM Calculated R Robert Lee -27 degrees MUSE SYSTEM Calculated T Robert Lee 104 degrees MUSE SYSTEM INTERPRETATION Normal sinus rhythm MUSE SYSTEM Anterolateral infarct (cited on or before 09-DEC-2021) Abnormal ECG When compared with ECG of 10-DEC-2021 11:17, No significant change was found Confirmed by Gary Perez ([id number]) on 01/30/2022 5:57:5 2 PM Specimen Anatomical Collection Method Collection Time Receive d Time (Source) Location / / Volume Laterality 01/30/2022 10:33 01/30/2022 5:57 AM EDT PM EDT Vitaliy Nobles MD ECG ORDERABLES Performing Organization Address City/[facility]/ZIP Code Phon e Number MUSE SYSTEM CARDIAC CATHETERIZATION (01/30/2022 10:16 AM EDT) Specimen (Source) Anatomical Location Collection Method / Collectio n Time Received Time / Laterality Volume Narrative CARDIOMAC SYSTEM - 01/30/2022 2:09 PM ED T ?[facility] ? Cardiac Cathete rization/Intervention Report ? Patient Name: Don Fatima. ? Procedure Date: 01/30/2022 ? A #: [id number] ? Primary Physician: Nobles, Vitaliy P ? Case #: [id number] ? File Name: [id number] ? Catheterization Order Number: [id number] ? [facility] ? Final Report [place], [place] ? Patient Name: ? Don E. Stewa rt ? ID#: ?[id number] ? : ?1945 ? Procedure Date: ? January 30, 2022 ? Case #: ? [id number] ? Room: ? 1 ? Case Physician: [...] patient was ?designated as ASA Class III. [facility] clinical frailty scale is 5: Mildly ?Frail. [...] procedure was Urgent. The indication for ?the filling station laborer visit is stable kn own CAD. [...] guiding catheter an d a 3.[address] ??20 Mhz ?using Manual pullback. ??Imagin [...] A premounted 2.00 x 26 mm Hardeep Mercer (TUCKER) ? was deployed wi a maximum [...] Wedelivered along 2.0 x 26 mm HARDEEP Mercer ? TUCKER stent and p ositioned it [...] dose administered prior to arrival in the filling station laborer. ?Recommended anti-platelet/anti- thrombotic regimen: ?Continue aspirin [...] may require ?modification of this regimen. [facility] Interventional Cardiology for ?questions. ?The 1 [...] using a 2.0 x 26 mm HARDEEP Mercer TUCKER stent. ?This completes the revasculariz ation [...] Lopez ? Report Finalized: 01/30/2022 ??14:02 ? Report Last Ammended: 03/06/2022 ??12:08 ? Procedure Note Vitaliy Nobles MD - 03/06/2022 [facility] Cardiac Catheterization/Intervention Re port Patient Name: Don FatimaMadiha Procedure Date: 01/30/2022 A #: [id number] Primary Physician: Vitaliy Nobles Case #: [id number] File Name: [id number] Catheterization Order Number: [id number] [facility] Final Report [place], [place] Patient Name: Don Fatima ID#: [id number] : 1945 Procedure Date: January 30, 2022 Case #: [id number] Room: 1 Case Physician: Vitaliy Nobles M.D. [...] e was Urgent. The indication for the filling station laborer visit is stable known CAD. Chest pain symptom assessment was: Typical Angina. Technique: A 6 SLFr sheath was inserted in the rig ht radial artery utilizing the Seldinger technique. The [...] 1.5 guiding catheter and a 3.[address] 20 Mhz using Manual pullback. Imaging [...] 2.0 guide. The lesion was predilated wi th a 2.00mm NC EUPHORA 15 MM balloon with a maximum inflation pressure of 26 atmospheres. A premounted 2.00 x 26 mm Hardeep Mercer (TUCKER) was deployed with a maximum inflation [...] along 2. 0 x 26 mm HARDEEP Mercer TUCKER stent and positioned it at the [...] administered prior t o arrival in the filling station laborer. Recommended anti-platelet/anti-thrombot ic regimen: Continue aspirin [...] require modification of this regimen. Consult D [facility] Interventional Cardiology for questions. The 1 year [...] using a 2.0 x 26 mm HARDEEP Mercer TUCKER stent. This completes the revascularization of [...] POC Glucose 212 (H) 65 - 199 [facility] mg/dL [facility] LAB[facility]ORY Comment: Supplemental ranges: <140 mg/dL before meals <180 mg/dL all other times of the day Specimen Anatomical Collection Method Collection Time Receive d Time (Source) Location / / Volume Laterality Blood 01/30/2022 9:04 AM 9:04 EDT AM EDT Vitaliy Nobles MD POINT OF CARE TEST ORDERABLE S Performing Organization Address City/State/[place] [address] (ABNORMAL) POCT Glucose (01/30/2022 8:10 AM EDT) P athologist Signature POC Glucose 224 (H) 65 - 199 [facility] mg/dL 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 with documented spasm ASHD (arteriosclerotic heart disease) Coronary atherosclerosis of unspecified type of vessel, inupiat or graft ASCVD (arteriosclerotic cardiovascular d isease) Unspecified cardiovascular disease documented in this encounter Admitting Diagnoses Diagnosis CAD (coronary artery disease) Coronary atherosclerosis of unspecified type of vessel, inupiat or graft documented in this encounter Administered [...] Given 02/2022 10:11 AM EDT 100 mcg (SEGMENT BLOCK LAYER) ONCE PRN, Starting on Wed01/30/22 at 0927, [...] (CANCELED) 083 9 (Given - Provider: Katerin aKy RN) ONCE PRN, Starting on Wed01/30/22 at [...] Procedure), Routine niCARdipine (Cardene) (100 mcg/mL) dilution (SEGMENT BLOCK LAYER) (CANCELED ) 0927 (Given - Provider: Vitaliy Nobles MD)0935 (Given - Provider: Vitlaiy Nobles MD)0957 (Given - Provider: Vitaliy Nobles [...] (Intra-Procedure) documented in this encounter Care Teams Vending Mechanic Relationship Specialty Start Date End Date Lovely Vicente MD PCP - General 04/16/15 [address] [place] [address] documented as of this encounter
--- OUTSIDE RECORDS SUMMARY | 2022-03-09 15:23 | XMS_ITS | Encounter Summary ---
:1945 Author Organization [facility] [place] [address] Care Team Providers Name Role Phone Lovely Vicente MD Primary Care Provider Encounter Details Date Type Department Care Team Description 12/15/[address] [facility] aBrbara Mera, [place] [phone] Social History Tobacco Use Types Packs/Day [...] Vitaliy Nobles MD [facility] [address] [place], [place] [address] (Wo rk) 06/10/2022 Office Visit Dermatology Laura Scherer MD [facility] DR TEJA GR-DERMAT [facility] [place], [place] [address] (Wo rk) documented as of this encounter Visit Diagnoses Not on filedocumented in this encounter Care Teams Recreational Specialist Relationship Specialty Start Date End Date Lovely Vicente MD PCP - General 04/16/[address] [place] [address] documented as of this encounter
--- OUTSIDE RECORDS SUMMARY | 2022-03-09 15:23 | XMS_ITS | Encounter Summary ---
:1945 [place] [address] Care Team Providers Name Role Phone Lovely Vicente MD Primary Care Provider Encounter Details Date Type Department Care Team Description 12/25/2021 Office Visit Cardiology at [facility] Liz Poole, Chronic systolic heart [facility] [place] [address] Cardiology Dept [phone] [place], [place] [address] Social History Tobacco Use Types [...] As per DC Summary - Admitted to [facility] on 12/08/21, transferred from [facility], respiratory distress with hypoxia 86% on [...] mg PO daily in place of Lasix. [place] is new for him and he will [...] (DAPT) Recommendations above ? TTE from [facility] 12/08/21 ?? 07/28/2019 Echocardiogram: SUMMARY: 1. [...] regurgitation present. 07/07/2019 - 07/21/2019 Zio Patch Insulation Blower The patient had a minimum heart rate [...] pauses greater than 3 seconds Assessment: Mr. Ftaima appears well compensated today and without symptoms [...] hyperkalemia 4.9 today 6. Post-op atrial fibrillation [id number] (CHF, HTN, DM, vascular disease, thromboembolism) Eliquis 7. PAD 08/06/2017: Right 1st, 2nd, 3rd toe amputation 08/11/2017: Left??femoral arterial access, RLE??angiogram, Balloon angioplasty of R PT 10/25/2017: right popliteal-pedal bypass at [facility] 8. Hypothyrodism S/p thyroidectomy for goiter Levothyroxine ?? Plan: 1 month follow up with labs Liz Poole PA-C 12/25/2021 documented in this encounter Plan of Treatment Upcoming Encounters Date Type Specialty Care Team Description 03/26/2022 Office Visit Cardiology Vitaliy Nobles MD [facility] [place], [place] [address] (Wo rk) 06/10/2022 Office Visit Dermatology Laura Scherer MD [facility] ER DR [address] [place], [place] [address] (Wo rk) documented as of this encounter Results (ABNORMAL) pro-Brain Natriuretic Peptide (12/25/2021 7:46 AM EDT) athologist Signature ProBNP 1,380 (H) <=124 [facility] pg/mL [facility] Specimen Anatomical Collection Method Collection Time Receive d Time (Source) Location / / Volume Laterality Blood 12/25/2021 7:46 AM 8:01 EDT AM EDT Resulting Agency Comment Spec In Lab Zulma Plunkett MD CHEMISTRY ORDERABLES Performing Organization Address City/State/[place] [address] (ABNORMAL) Basic Metabolic Panel (non-fasting) (12/25/2021 7:46 AM EDT) athologist Signature Glucose Lvl 272 (H) 65 - 199 [facility] mg/dL [facility] Comment: Diabetes: >=200 mg/dL plus symp toms BUN 62 (H) 10 - 20 mg/dL [facility] Creatinine 1.81 (H) 0.80 - 1.50 mg/dL [facility] Sodium 134 (L) 135 - 145 mmol/L [facility] Potassium 4.9 3.5 - 5.0 mmol/L [facility] Comment: Please note: ??Patients with WBC >100,00 0 may have falsely elevated Potassium levels. ??For accurate Potassium quantif ication in these patients send serum separator tube (gold top) for subsequent determinations. ??Contact the Clinical Chemistry Laboratory if there are any qu estions. Chloride 95 (L) 98 - 107 mmol/L [facility] CO2 28 22 - 31 mmol/L [facility] Anion Gap 11 5 - 15 mmol/L [facility] Calcium 9.4 8.5 - 10.5 mg/dL [facility] Estimated GFR 36 (L) >=60 mL/min/1.73 m?? [facility] [...] Organization Address City/State/[place] [address] documented in this encounter Visit Diagnoses Diagnosis Chronic systolic heart failure documented in this encounter Care Teams Log Turner Relationship Specialty Start Date End Date Lovely Vicente MD PCP - General 04/16/[address] [place] [address] documented as of this encounter
--- OUTSIDE RECORDS SUMMARY | 2022-03-09 15:23 | XMS_ITS | Encounter Summary ---
:1945 [place] [address] Care Team Providers Name Role Phone Lovely Vicente MD Primary Care Provider Encounter Details Date Type Department Care Team Description 12/24/2021 Orders Only Production Administrator Zulma Finch, GERARDVD (art eriosclerotic [facility] cardiovascular disease) [facility] [place] [address] [place], [place] [phone] (Work) [phone] Social History Tobacco Use Types Packs/Day Years [...] MD [facility] [address] [place], [place] [address] (Wo rk) 06/10/2022 Office Visit Dermatology Laura Scherer MD [facility] [address] [place], [place] [address] (Wo rk) documented as of this encounter Visit Diagnoses Diagnosis ASCVD (arteriosclerotic cardiovascular d isease) Unspecified cardiovascular disease documented in this encounter Care Teams Volunteer Services Supervisor Relationship Specialty Start Date End Date Lovely Vicente MD PCP - General 04/16/[address] [place] [address] documented as of this encounter
--- OUTSIDE RECORDS SUMMARY | 2022-03-09 15:23 | XMS_ITS | Encounter Summary ---
:1945 Author Organization [place] [address] Care Team Providers Name Role Phone Lovely Vicente MD Primary Care Provider Reason for Referral Diagnostic Test (Routine) - New Request Specialty Diagnoses / Procedures Referred By Contact Refer red To Contact Cardiology Diagnoses Chronic systolic heart failure Liz Carrera PA [facility] Non-Inv Card Lab Procedures Echocardiogram Transthoracic [facility] [place] [address] [place] [address] Fax: Referral ID Status Reason Start Expiration Visits Visits Date Date Requested Authorized [id number] New Request Specialty 02/19/2022 02/19/2023 1 1 Service Requested Encounter Details Date Type Department Care Team Description 02/19/2022 Office Visit Cardiology at [facility] Liz Carrera, Chronic systolic heart [facility] [place] [address] Cardiology Dept [phone] [place], [place] [address] Social History Tobacco Use Types [...] As per DC Summary - Admitted to [facility] on 12/08[facility]21[facility] mg PO daily in place of Lasix. [place] is new for him and he will [...] his PCP. He started [facility] in [facility]. Monitored vitals/trends at home: Weight [...] regurgitation present. 07/07/2019 - 07/21/2019 Zio Patch Records Management Analyst The patient had a minimum heart [...] 12.5 mg daily 6. Post-op atrial fibrillation [id number] (CHF, HTN, DM, vascular disease, thromboembolism) Eliquis 7. PAD 08/06/2017: Right 1st, 2nd, 3rd toe amputation 08/11/2017: Left??femoral arterial access, RLE??angiogram, Balloon angioplasty of R PT 10/25/2017: right popliteal-pedal bypass at [facility] 8. Hypothyrodism S/p thyroidectomy for [...] MD [facility] [address] [place], [place] [address] (Wo rk) 06/10/2022 Office Visit Dermatology Laura Scherer MD [facility] [address] [place], [place] [address] (Wo rk) Scheduled Orders Name Type Priority Associated Order Schedule Diagnoses Echocardiogram Echocardiography Routine Chronic systolic Expec vlad: Transthoracic heart failure 05/22/2022 (Approximate), Expires: 11/21/2022 documented as of this encounter Results (ABNORMAL) Basic Metabolic Panel (non-fasting) (02/19/2022 8:06 AM EDT) athologist Signature Glucose Lvl 139 65 - 199 [facility] mg/dL [facility] Comment: Diabetes: >=200 mg/dL plus symp toms BUN 31 (H) 10 - 20 mg/dL [facility] Creatinine 1.53 (H) 0.80 - 1.50 mg/dL [facility] Sodium 142 135 - [...] - 15 mmol/L [facility] Calcium 9.7 8.5 - 10.5 [...] Organization Address City/State/[place] [address] (ABNORMAL) pro-Brain Natriuretic Peptide [...] Organization Address City/State/Z[place] [address] documented in this encounter Visit Diagnoses Diagnosis Chronic systolic heart failure documented in this encounter Care Teams District Service Manager Relationship Specialty Start Date End Date Lovely Vicente MD PCP - General 04/16/[address] [place] [address] documented as of this encounter
--- OUTSIDE RECORDS SUMMARY | 2022-03-09 15:23 | XMS_ITS | Encounter Summary ---
:1945 [place] [address] Care Team Providers Name Role Phone Lovely Vicente MD Primary Care Provider Encounter Details Date Type Department Care Team Description 12/30/2021 Notes Only Cardiac Rehab [facility] Linnea Deluca, VAMSI [facility] [place] [address] Social History Tobacco Use Types Packs/Day [...] Failure team. DX: HFrEF. Referral placed to [facility] documented in this encounter Plan of Treatment Upcoming Encounters Date Type Specialty Care Team Description 03/26/2022 Office Visit Cardiology Vitaliy Nobles MD [facility] ER DR [address] [place], [place] [address] (Wo rk) 06/10/2022 Office Visit Dermatology Laura Scherer MD [facility] [address] [place], [place] [address] (Wo rk) documented as of this encounter Visit Diagnoses Not on filedocumented in this encounter Care Teams Shrimp Picker Relationship Specialty Start Date End Date Lovely Vicente MD PCP - General 04/16/15 [facility] [address] [place] [address] documented as of this encounter
--- OUTSIDE RECORDS SUMMARY | 2022-03-09 15:23 | XMS_ITS | Encounter Summary ---
:1945 Author Organization [facility] [place] [address] Care Team Providers Name Role Phone Lovely Vicente MD Primary Care Provider Encounter Details Date Type Department Care Team Description 02/19/2022 Laboratory Appointment Lab 3L [facility] systolic [facility] [place] [phone] Social History Tobacco Use Types Packs/Day Years [...] Vitaliy Nobles MD [facility] [place], [place] [address] (Wo rk) 06/10/2022 Office Visit Dermatology Laura Scherer MD [facility] DR [address] [place], [place] [address] (Wo rk) documented as of [...] (ABNORMAL) Differential, Automated (02/19/2022 8:06 AM EDT) [facility] Method Time Signature Neutrophils % 76.0 % [facility] Neutr Abs (ANC) 5.49 1.70 - [facility] 6.10 [facility] x10(3)/[facility] LABORATORY Lymphocytes % 10.8 % [facility] Lymphocytes Abs 0.8 (L) 0.9 - 3.2 [facility] x10(3)/[facility] LABORATORY Monocytes % 10.2 % [facility] Monocyte Abs 0.7 0.3 - 0.9 [facility] x10(3)/[facility] LABORATORY Eosinophils % 1.2 % [facility] Eosinophils Abs 0.1 0.0 - 0.4 [facility] x10(3)/[facility] LABORATORY Basophils % 0.8 % [facility] Basophils Abs 0.1 0.0 - 0.1 [facility] x10(3)/[facility] LABORATORY Immature Gran % 1.00 % [...] Abs 0.07 (H) 0.00 - 0.04 x10(3)/[facility] LABORATORY Specimen Anatomical Collection Method Collection Time Receive d Time (Source) Location / / Volume Laterality Blood 02/19/2022 8:06 AM 2 8:09 EDT AM EDT Resulting Agency Comment Spec In Lab Liz BROWN HEMATOLOGY ORDERABLES Performing Organization Address City/State/[place] [address] (ABNORMAL) Hemogram (02/19/2022 8:06 AM EDT) Analysis Performed At Patho logist Time Signature WBC 7.2 4.0 - 9.5 [facility] LABORATORY RBC 4.41 (L) 4.58 - [facility] RYAN 5.54 [facility] x10(6)/[facility] LABORATORY Hemoglobin 13.2 (L) 13.7 - [facility] 16.5 g/dL [facility] Hematocrit 40.9 40.5 - [facility] 48.5 % [facility] MCV 92.7 82.9 - [facility] 93.1 [facility] LABORATORY MCH 29.9 27.5 - [place] [facility] 32.1 pg [facility] MCHC 32.3 32.0 - [facility] 35.[facility] g/dL [facility] Platelets 191 145 - 357 [facility] x10(3)/[facility] LABORATORY RDWSD 53.6 (H) 36.0 - [facility] 45.0 [facility] LABORATORY RDWCV 15.6 (H) 11.4 - [facility] 13.8 % [facility] LABORATORY MPV 8.7 7.6 - 12.9 [facility] LABORATORY nRBC % Auto 0.0 % [facility] nRBC Abs Auto 0.000 0.000 - [facility] R[facility]AN 0.000 [facility] x10(3)/[facility] LABORATORY Specimen Anatomical Collection Method Collection Time Receive d Time (Source) Location / / Volume Laterality Blood 02/19/2022 8:06 AM 2 8:09 EDT AM EDT Resulting Agency Comment Spec In Lab Liz BROWN HEMATOLOGY ORDERABLES Performing Organization Address City/State/[place] [address] (ABNORMAL) pro-Brain Natriuretic Peptide [...] Address City/State/ZIP Code Phon e Number [address] (ABNORMAL) Basic Metabolic Panel (non-fasting) (02/19/2022 8:06 AM EDT) athologist Signature Glucose Lvl 139 65 - 199 [facility] mg/dL [facility] Comment: Diabetes: >=200 mg/dL plus symp toms BUN 31 (H) 10 - 20 mg/dL [facility] Creatinine 1.53 (H) 0.80 - 1.50 mg/dL [facility] Sodium 142 135 - 145 mmol/L [facility] Potassium 5.4 (H) 3.5 - 5.0 mmol/L [facility] [...] LABORATORY Calcium 9.7 8.5 - 10.5 mg/dL [facility] Estimated GFR 47 (L) >=60 [...] City/State/[place] [address] documented in this encounter Visit Diagnoses Diagnosis Chronic systolic heart failure documented in this encounter Care Teams Sugar Cane Grower Relationship Specialty Start Date End Date Lovely Vicente MD PCP - General 04/16/[address] [place] [address] documented as of this encounter
--- OUTSIDE RECORDS SUMMARY | 2022-03-09 15:23 | XMS_ITS | Encounter Summary ---
:1945 Author Organization [facility] Address [facility] [place] [address] Care Team Providers Name Role Phone Lovely Vicente MD Primary Care Provider Reason for Visit Auth/Cert Specialty Diagnoses / Procedures Referred By Contact Refer red To Contact Diagnoses ASCVD (arteriosclerotic cardiovascular disease) [I25.10] Vitaliy Nobles MD [facility] Procedures PRO PERC TRLUML CORONARY STENT W/ANGIO ONE ART/BRANCH CARDIAC CATHETERIZATION STENT PLACEMENT-SINGLE MAJOR CORONARY ARTERY OR BRANCH [facility] [place] [address] Referral ID Status Reason Start Date Expiration Date Visits Requ ested Visits Authorized [id number] 1 1 Encounter Details Date Type Department Care Team Description 01/30/2022 Hospital Encounter Short Stay Unit at Vitaliy Nobles, CVD (arteriosclerotic cardiovascular disease); Barbara Blue MD 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 Please follow up with your clinical data assistant in the next 4-6 weeks. We have made a referral to cardiac rehab. Please see the attached instructions regarding care to your right wrist access site. AttachmentsThe following attachments cannot be sent through Care Everywhere. Coronary Angiogram: Post-op (Maori)documented in this encounter Medications at Time of [...] - 01/30/2022 4:54 PM EDT [facility] Short Stay Unit Discharge Note All [...] recent PCI presenting for staged PCI to [facility]. The pt states he has been [...] recent PCI presenting for staged PCI to [facility]. 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 I had referred him to cardiac rehab at [facility] last month per HF team. He was waiting until this intervention before starting the program. Reviewed managing angina /use of sl nitroglycerin. Given parameters for home exercise. 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 We discussed short walks several times per day. Will send [facility] his discharge summary from this admission. The patient should be contacted by the Program within 1- 2 weeks from discharge. Brief Op Note - Vitaliy Nobles MD - 01/30/2022 10:19 AM EDT Images from the original note were not included. [facility] [place] [address] [place] [address] CORONARY ANGIOGRAM AND PERCUTANEOUS CORONARY INTERVENTION REPORT Patient: Don Fatima : 1945 MR number: [id number] Date of Service: 01/30/2022 Dock Operations Supervisor: Vitaliy Nobles MD Fellow: KEYON Elizabeth [...] a long 2.0 x 26 mm HARDEEP Rhea TUCKER stent and positioned it at the [...] using a 2.0 x 26 mm HARDEEP Rhea TUCKER stent. This completes the revascularization ofall [...] MD [facility] [address] [place], [place] [address] (Wo rk) 06/10/2022 Office Visit Dermatology Laura Scherer MD [facility] DR TE[address] GR-DERMAT [place], [place] [address] (Wo rk) Scheduled Orders Name Type Priority Associated Diagnoses Order S chedule EKG 12 Lead ECG Routine ASCVD (arteriosclerotic One Time for 1 Occurrences cardiovascular disease) star amandag 01/30/2022 until 01/30/2022 documented as of this [...] LABORATORY Neutr Abs (ANC) 3.96 1.70 - [facility] 6.10 [facility] x10(3)/[facility] LABORATORY Lymphocytes % 16.3 % [facility] LABORATORY Lymphocytes Abs 0.9 0.9 - 3.2 [facility] x10(3)/[facility] LABORATORY Monocytes % 10.0 % [facility] LABORATORY Monocyte Abs 0.6 0.3 - 0.9 [facility] x10(3)/[facility] LABORATORY Eosinophils % 0.5 % [facility] LABORATORY Eosinophils Abs 0.0 0.0 - 0.4 [facility] x10(3)/[facility] LABORATORY Basophils % 0.5 % [facility] LABORATORY Basophils Abs 0.0 0.0 - 0.1 [facility] x10(3)/[facility] LABORATORY [...] Abs 0.05 (H) 0.00 - 0.04 x10(3)/[facility] LABORATORY Specimen Anatomical Collection Method Collection Time Receive d Time (Source) Location / / Volume Laterality Blood 01/30/2022 2:12 PM 2 2:37 EDT PM EDT Resulting Agency Comment Spec In Lab Eddi Elizabeth Jr., MD HEMATOLOGY ORDERABLES Performing Organization Address City/State/[place] [address] (ABNORMAL) Hemogram (01/30/2022 2:12 PM EDT) Analysis Performed At Patho logist Time Signature WBC 5.5 4.0 - 9.5 [facility] x10(3)/[facility] LABORATORY RBC 4.30 (L) 4.58 - [facility] 5.54 [facility] x10(6)/[facility] LABORATORY Hemoglobin 12.7 (L) 13.7 - [facility] 16.5 g/dL [facility] LABORATORY Hematocrit 39.4 (L) 40.5 - [facility] 48.5 % [facility] LABORATORY MCV 91.6 82.9 - [facility] 93.1 fL [facility] LABORATORY MCH 29.5 27.5 - [facility] 32.1 [facility] LABORATORY MCHC 32.2 32.0 - [facility] 35.7 g/dL [facility] LABORATORY Platelets 172 145 - 357 [facility] x10(3)/[facility] LABORATORY RDWSD 54.5 (H) 36.0 - [facility] 45.0 [facility] LABORATORY RDWCV 16.4 (H) 11.4 - [facility] 13.8 % [facility] LABORATORY MPV 9.2 7.6 - 12.9 [facility] LABORATORY nRBC % Auto 0.0 % [facility] LABORATORY nRBC Abs Auto 0.000 0.000 - [facility] 0.000 [facility] x10(3)/[facility] LABORATORY Specimen Anatomical Collection Method Collection Time Receive d Time (Source) Location / / Volume Laterality Blood 01/30/2022 2:12 PM 2 2:37 EDT PM EDT Resulting Agency Comment Spec In Lab Eddi Elizabeth Jr., MD HEMATOLOGY ORDERABLES Performing Organization Address City/State/[place] [address] (ABNORMAL) Basic Metabolic Panel (non-fasting) (01/30/2022 2:12 PM EDT) athologist Signature Glucose Lvl 163 65 - 199 [facility] mg/dL [facility] LABORATORY Comment: Diabetes: >=200 mg/dL plus [...] LABORATORY Calcium 9.2 8.5 - 10.5 mg/dL [facility] Linnea [facility] LABORATORY Estimated GFR 49 (L) >=60 [...] Address City/State/ZIP Code Phon e Number [address] POCT Glucose (01/30/2022 1:41 PM EDT) athologist Signature POC Glucose 148 65 - 199 [facility] mg/dL [facility] Comment: Supplemental ranges: <140 mg/dL before meals <180 mg/dL all other times of the day Specimen Anatomical Collection Method Collection Time Receive d Time (Source) Location / / Volume Laterality Blood 01/30/2022 1:41 PM 2 1:41 EDT PM EDT Vitaliy Nobles MD POINT OF CARE TEST ORDERABLE S Performing Organization Address City/[facility]/ZIP Code Phon e Number [address] POCT Glucose (01/30/2022 10:48 AM EDT) athologist Signature POC Glucose 193 65 - 199 [facility] mg/dL [facility] LABORATORY Comment: Supplemental ranges: <140 mg/dL before meals <180 mg/dL all other times of the day Specimen Anatomical Collection Method Collection Time Receive d Time (Source) Location / / Volume Laterality Blood 01/30/2022 10:48 01/30/2022 AM EDT 10:48 AM EDT Vitaliy Sandra Nobles MD POINT OF CARE TEST ORDERABLE S Performing Organization Address City/[facility]/[place] [address] EKG 12 Lead (01/30/2022 10:33 AM EDT) Component Value Ref Range Test Analysis Performed Pathologis t Method Time At Signature Ventricular rate 64 BPM MUSE SYSTEM Atrial Rate 64 BPM MUSE SYSTEM P-R Interval 162 ms MUSE SYSTEM QRS Duration 94 ms MUSE SYSTEM Q-T Interval 422 ms MUSE SYSTEM QTC Calculated 435 ms MUSE SYSTEM (Bezet) Calculated P [place] 41 degrees MUSE SYSTEM Calculated R [place] -27 degrees MUSE SYSTEM Calculated T [place] 104 degrees MUSE SYSTEM INTERPRETATION Normal sinus rhythm MUSE SYSTEM Anterolateral infarct (cited on or before 09-DEC-2021) Abnormal ECG When compared with ECG of 10-DEC-2021 11:17, No significant change was found Confirmed by Gary Perez ([id number]) on 01/30/2022 5:57:5 2 PM Specimen Anatomical Collection Method Collection Time Receive d Time (Source) Location / / Volume Laterality 01/30/2022 10:33 01/30/2022 5:57 AM EDT PM EDT Vitaliy Sandra Nobles MD ECG ORDERABLES Performing Organization Address City/[facility]/ZIP Code Phon e Number MUSE SYSTEM CARDIAC CATHETERIZATION (01/30/2022 10:16 AM EDT) Specimen (Source) Anatomical Location Collection Method / Collectio n Time Received Time / Laterality Volume Narrative CARDIOMAC SYSTEM - 01/30/2022 2:09 PM ED T ?[facility] ? Cardiac Cathete rization/Intervention Report ? Patient Name: Kushal, Don E. ? Procedure Date: 01/30/2022 ? A #: [id number] ? Primary Physician: Nobles, Vitaliy P ? Case #: [id number] ? File Name: [id number] ? Catheterization Order Number: [id number] ? [facility] ? Final Report [place], [place] ? Patient Name: ? Don E. Stewa rt ? ID#: ?[id number] ? : ?1945 ? Procedure Date: ? January 30, 2022 ? Case #: ? [id number] ? Room: ? 1 ? Case Physician: [...] patient was ?designated as ASA Class III. [facility] clinical frailty scale is 5: Mildly [...] procedure was Urgent. The indication for ?the slab grinder visit is stable kn own CAD. Chest [...] ? branch (Diagonal 1) of t mary LAD. ? This vessel was not inje cted. ? Intravascular Imaging/Physiology: ?Intravascular Ultrasound was pe rformed in the entire vessel RPDA using a ?6 Fr IR 1.5 guiding catheter an d a 3.5 [address] ??20 Mhz ?using Manual pullback. ??Imagin [...] 6 Fr. Muari Right ? 2.0 guide. ??Th e lesion was predilated with a 2.00mm NC EUPHORA ? 15 MM balloon w ith a maximum inflation pressure of 26 ? atmospheres. ?? A premounted 2.00 x 26 mm Hardeep Rhea (TUCKER) ? was deployed wi a maximum [...] Wedelivered along 2.0 x 26 mm HARDEEP Rhea ? TUCKER stent and p ositioned it [...] dose administered prior to arrival in the slab grinder. ?Recommended anti-platelet/anti- thrombotic regimen: ?Continue aspirin 81 [...] require ?modification of this regimen. C onsult [facility] Interventional Cardiology for ?questions. ?The 1 year bleeding risk as nusrat culated by the PRECISE DAPT score is High ?risk. ?High Bleeding Risk - Anticoagul ation and DAPT: ?- ??Assess ischemic and bleedin g risks using validated risk predictors ?(e.g. CHADS2-VASC, HAS-BLED, [place] ECISE DAPT, DAPT Score) ?- ??Keep anticoagulant [...] using a 2.0 x 26 mm HARDEEP Rhea TUCKER stent. ?This completes the revasculariz ation [...] Procedure Note Vitaliy Nobles MD - 03/06/2022 [facility] Cardiac Catheterization/Intervention Re port Patient Name: Don Fatima Procedure Date: 01/30/2022 A #: [id number] Primary Physician: Vitalyi Nobles Case #: [id number] File Name: [id number] Catheterization Order Number: [id number] [facility] Final Report [place], [place] Patient Name: Don Fatima ID#: [...] e was Urgent. The indication for the slab grinder visit is stable known CAD. Chest pain [...] 1.5 guiding catheter and a 3.5 [address] 20 Mhz using Manual pullback. Imaging [...] the culprit lesion. A guidewire was kenny ayra across this lesion. Vessel flow pre intervention was YULISSA 3 . Lesion length was 26mm. This lesion was severely calcifie d. Stent insertion was accomplished throug h a 6 Fr. Ikari Right 2.0 guide. The lesion was predilated wi th a 2.00mm NC EUPHORA 15 MM balloon with a maximum inflation pressure of 26 atmospheres. A premounted 2.00 x 26 mm [place] Rhea (TUCKER) was deployed with a maximum inflation [...] along 2. 0 x 26 mm HARDEEP Rhea TUCKER stent and positioned it at the [...] administered prior t o arrival in the slab grinder. Recommended anti-platelet/anti-thrombot ic regimen: Continue aspirin 81 [...] require modification of this regimen. Consult [facility] Interventional Cardiology for questions. The 1 year [...] using a 2.0 x 26 mm HARDEEP Rhea TUCKER stent. This completes the revascularization of [...] Glucose 212 (H) 65 - 199 [facility] mg/dL [facility] LABORATORY Comment: Supplemental ranges: <140 mg/dL before meals <180 mg/dL all other times of the day Specimen Anatomical Collection Method Collection Time Receive d Time (Source) Location / / Volume Laterality Blood 01/30/2022 9:04 AM 9:04 EDT AM EDT Vitaliy Nobles MD POINT OF CARE TEST ORDERABLE S Performing Organization Address City/State/[place] [address] (ABNORMAL) POCT Glucose (01/30/2022 8:10 AM EDT) athologist Signature POC Glucose 224 (H) 65 - 199 [facility] mg[facility]dL [facility] Comment: Supplemental ranges: <140 mg/dL before meals <180 mg/dL all other times of the day Specimen Anatomical Collection Method Collection Time Receive d Time (Source) Location / / Volume Laterality Blood 01/30/2022 8:10 AM 8:10 EDT AM EDT Vitaliy Sandra Nobles MD POINT OF CARE TEST ORDERABLE S Performing Organization Address City/State/[place] [address] documented in this encounter Visit Diagnoses Diagnosis ASCVD (arteriosclerotic cardiovascular d isease) Unspecified cardiovascular disease 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 ASHD (arteriosclerotic heart disease) Coronary atherosclerosis of unspecified type of vessel, [place] or graft ASCVD (arteriosclerotic cardiovascular d isease) Unspecified cardiovascular disease documented in this encounter Admitting Diagnoses Diagnosis CAD (coronary artery disease) Coronary atherosclerosis of unspecified type of vessel, [place] or graft documented in this encounter Administered [...] (CANCELED ) 0838 (Given - Provider: Jet Reina, VAMSI) ONCE PRN, Starting on Wed01/30/22 at 0838 , Until Wed01/30/22 at 1025, Cath (Intra- Procedure), Routine niCARdipine (Cardene) (100 mcg/mL) dilution (PERSONNEL TECHNICIAN) (CANCELED ) 0927 (Given - Provider: [...] (CANCELED) 1013 (New Bag - Provider: Katerin Kay, VAMSI) CONTINUOUS PRN, Starting on Wed01/30/22 a t 1013, Until Wed01/30/22 at 1025, Cath (Intra-Procedure) documented in this encounter Care Teams Drapery Inspector Relationship Specialty Start Date End Date Lovely Vicente MD PCP - General 04/16/[address] [place] [address] documented as of this encounter
--- OUTSIDE RECORDS SUMMARY | 2022-03-09 15:23 | XMS_ITS | Encounter Summary ---
:1945 Author Organization [facility] [place] [address] Care Team Providers Name Role Phone Lovely Vicente MD Primary Care Provider Encounter Details Date Type Department Care Team Description 12/12/2021 Telephone Cardiology at [facility] [place] [phone] Social History Tobacco Use Types Packs/Day [...] - 12/12/2021 11:36 AM EDT RTC to [facility] regarding pharmacists questions as to whether the [...] [facility] ER [address] [place], [place] [address] (Wo rk) 06/10/2022 Office Visit Dermatology Laura Scherer MD [facility] DR TEJA [address]DERMAT [place], [place] [address] (Wo rk) documented as of this encounter Visit Diagnoses Not on filedocumented in this encounter Care Teams Steel Turner Relationship Specialty Start Date End Date Lovely Vicente MD PCP - General 04/16/[address] [place] [address] documented as of this encounter
--- OUTSIDE RECORDS SUMMARY | 2022-03-09 15:23 | XMS_ITS | Encounter Summary ---
:1945 Author Organization [facility] [place] [address] Care Team Providers Name Role Phone Lovely Vicente MD Primary Care Provider Encounter Details Date Type Department Care Team Description 12/25/2021 Laboratory Appointment Lab 3L [facility] systolic [facility] [place] [id number] Social History Tobacco Use Types Packs/Day Years [...] Nobles MD [facility] CARDIOLOGY [place], [place] [address] (Wo rk) 06/10/2022 Office Visit Dermatology Laura Scherer MD [facility] DR TEJA GR-DERMAT OLOGY [place], [place] [address] (Wo rk) documented as of [...] (ABNORMAL) Differential, Automated (12/25/2021 7:46 AM EDT) [facility] Method Time Signature Neutrophils % 82.6 % [facility] LABORATORY Neutr Abs (ANC) 9.37 (H) 1.70 - [facility] 6.10 [facility] x10(3)/[facility] L LABORATORY Lymphocytes % 7.1 % [facility] LABORATORY Lymphocytes Abs 0.8 (L) 0.9 - 3.2 [facility] x10(3)/[facility] LABORATORY Monocytes % 8.8 % [facility] LABORATORY Monocyte Abs 1.0 (H) 0.3 - 0.9 [facility] x10(3)/[facility] LABORATORY Eosinophils % 0.4 % [facility] LABORATORY Eosinophils Abs 0.0 0.0 - 0.4 [facility] x10(3)/[facility] LABORATORY Basophils % 0.4 % [facility] LABORATORY Basophils Abs 0.0 0.0 - 0.1 [facility] x10(3)/[facility] LABORATORY Immature Gran [...] Gran Abs 0.08 (H) 0.00 - 0.04 x10(3)/[facility] LABORATORY Specimen Anatomical Collection Method Collection Time Receive d Time (Source) Location / / Volume Laterality Blood 12/25/2021 7:46 AM 2 8:01 EDT AM EDT Resulting Agency Comment Spec In Lab Liz BROWN HEMATOLOGY ORDERABLES Performing Organization Address City/State/[place] [address] (ABNORMAL) Hemogram (12/25/2021 7:46 AM EDT) Analysis Performed At Patho logist Time Signature WBC 11.4 (H) 4.0 - 9.5 [facility] x10(3)/[facility] LABORATORY RBC 4.23 (L) 4.58 - [facility] x10(6)/[facility] LABORATORY Hemoglobin 12.3 (L) 13.7 - [facility] 16.5 g/dL [facility] LABORATORY Hematocrit 37.7 (L) 40.5 - [facility] 48.5 % [facility] LABORATORY MCV 89.1 82.9 - [facility] 93.1 [facility] LABORATORY MCH 29.1 27.5 - [facility] 32.1 pg [facility] LABORATORY MCHC 32.6 32.0 - [facility] 35.7 g/dL [facility] LABORATORY Platelets 215 145 - 357 [facility] x10(3)/[facility] LABORATORY RDWSD 49.8 (H) 36.0 - [facility] RYAN 45.0 [facility] LABORATORY RDWCV 15.2 (H) 11.4 - [facility] 13.8 % [facility] LABORATORY MPV 9.2 7.6 - 12.9 [facility] LABORATORY nRBC % Auto 0.0 % [facility] LABORATORY nRBC Abs Auto 0.000 0.000 - [facility] R[facility]AN 0.000 [facility] x10(3)/[facility] LABORATORY Specimen Anatomical Collection Method Collection Time Receive d Time (Source) Location / / Volume Laterality Blood 12/25/2021 7:46 AM 2 8:01 EDT AM EDT Resulting Agency Comment Spec In Lab Liz BROWN HEMATOLOGY ORDERABLES Performing Organization Address City/State/[place] [address] (ABNORMAL) Basic Metabolic Panel (non-fasting) (12/25/2021 7:46 AM EDT) P athologist Signature Glucose Lvl 272 (H) 65 - 199 [facility] mg/dL [facility] LABORATORY Comment: Diabetes: >=200 mg/dL plus symp toms BUN 62 (H) 10 - 20 mg/dL [facility] LABORATORY Creatinine 1.81 (H) 0.80 - 1.50 mg/dL [facility] LABORATORY Sodium 134 (L) 135 - 145 mmol/L [facility] LABORATORY Potassium 4.9 3.5 - 5.0 mmol/L [facility] LABORATORY Comment: Please note: ??Patients with WBC >100,00 0 may have falsely elevated Potassium levels. ??For accurate Potassium quantif ication in these patients send serum separator tube (gold top) for subsequent determinations. ??Contact the Clinical Chemistry Laboratory if there are any qu estions. Chloride 95 (L) 98 - 107 mmol/L [facility] LABORATORY CO2 28 22 - 31 mmol/L [facility] Anion Gap 11 5 - 15 mmol/L [facility] LABORATORY Calcium 9.4 8.5 - 10.5 mg/dL [facility] LABORATORY Estimated GFR 36 (L) >=60 mL/min/1.73 m?? [facility] [...] Organization Address City/State/[place] [address] (ABNORMAL) pro-Brain Natriuretic Peptide (12/25/2021 7:46 AM EDT) P athologist Signature ProBNP 1,380 (H) <=124 KATALINA DAVIS pg/mL [facility] LABORATORY Specimen Anatomical Collection Method Collection Time Receive d Time (Source) Location / / Volume Laterality Blood 12/25/2021 7:46 AM 2 8:01 EDT AM EDT Resulting Agency Comment Spec In Lab Zulma Plunkett MD CHEMISTRY ORDERABLES Performing Organization Address City/State/[place] [address] documented in this encounter Visit Diagnoses Diagnosis Chronic systolic heart failure documented in this encounter Care Teams Geometrician Relationship Specialty Start Date End Date Lovely Vicente MD PCP - General 04/16/[address] [place] [address] documented as of this encounter
--- OUTSIDE RECORDS SUMMARY | 2022-03-09 15:24 | XMS_ITS | Encounter Summary ---
:1945 Author Organization [facility] [place] [address] Care Team Providers Name Role Phone Lovely Vicente MD Primary Care Provider Encounter Details Date Type Department Care Team Description 12/07/2021 Telephone Cardiology Eddi Briceño Jr., [facility] [place] [address] [facility] [phone] CARDIOLOGY DEPT [place], [place] [address] (Wo rk) Social History [...] the OSH ED provider/staff member. Referring Location: [facility] Referring Provider: Marisela Dean, MATTRESS MAKER [address] [place] [address] Don Veda Kushal 76 y.o. w / [...] bpm, LAFB, poor R wave progression, septal AL, and lateral STD, overall no significantchange from [...] Nobles MD [facility] [address] [place], [place] [address] (Mikayla alcaraz) 06/10/2022 Office Visit Dermatology Laura Scherer MD [facility] [address] GR[address]MAT OGY [place], [place] [address] (Wo rk) documented as of this encounter Visit Diagnoses Not on filedocumented in this encounter Care Teams Associate Attorney Relationship Specialty Start Date End Date Lovely Vicente MD PCP - General 04/16/[address] [place] [address] documented as of this encounter
--- OUTSIDE RECORDS SUMMARY | 2022-03-09 15:24 | XMS_ITS | Encounter Summary ---
:1945 Author Organization [place] [address] Care Team Providers Name Role Phone Lovely Vicente MD Primary Care Provider Encounter Details Date Type Department Care Team Description 11/07/2019 TH Visit Cardiology at [facility] Danette Maxwell (arteriosclerotic heart disease); (TeleHealth) [facility] STACIE Gomes Cardiomyopathy, ischemic; Drive [facility] S/P CABG x 3; [place], [place] MARIA VICTORIA (obstructive sleep apnea) on CPAP [phone] CARDIOLOGY [phone] [place], [place] [address] Social History Tobacco Use Types [...] regurgitation present. 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 Post-op atrial fibrillation [id number] (CHF, HTN, DM, vascular disease, thromboembolism) Amiodarone discontinued Continue coumadin INR managed by PCP 7. PAD 08/06/2017: Right 1st, 2nd, 3rd toe amputation 08/11/2017: Left??femoral arterial access, RLE??angiogram, Balloon angioplasty of R PT with Eleazar 2.5 x 80 10/25/2017: right popliteal-pedal bypass at [facility] Continue Coumadin 8. Hypothyrodism S/p thyroidectomy [...] [facility] [address] [place], [place] [address] (Wo rk) 06/10/2022 Office Visit Dermatology Laura Scherer MD [facility] [address] [place], [place] [address] (Wo rk) documented as of this encounter Visit Diagnoses Diagnosis ASHD (arteriosclerotic heart disease) Coronary atherosclerosis of unspecified type of vessel, [place] or graft Cardiomyopathy, ischemic Other specified forms of chronic ischemi c heart disease S/P CABG x 3 Postsurgical aortocoronary bypass status MARIA VICTORIA (obstructive sleep apnea) on CPAP Obstructive sleep apnea (adult) (pediatr ic) documented in this encounter Care Teams Electrical Cad Designer Relationship Specialty Start Date End Date Lovely Vicente MD PCP - General 04/16/[address] [place] [address] [address] [place] [address] documented as of this encounter
--- OUTSIDE RECORDS SUMMARY | 2022-03-09 15:24 | XMS_ITS | Encounter Summary ---
:1945 [place] [address] Care Team Providers Name Role Phone Lovely Vicente MD Primary Care Provider Encounter Details Date Type Department Care Team Description 04/16/2021 Office Visit Cardiology at [facility] Liz Poole, Chronic systolic heart [facility] [place] [address] Cardiology Dept [phone] [place], [place] [address] Social History Tobacco Use Types [...] good. 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 Post-op atrial fibrillation [id number] (CHF, HTN, DM, vascular disease, thromboembolism) On warfarin - recent labile INR Will discuss with PCP, option of Luis Daniel 7. PAD 08/06/2017: Right 1st, 2nd, 3rd toe amputation 08/11/2017: Left??femoral arterial access, RLE??angiogram, Balloon angioplasty of R PT 10/25/2017: right popliteal-pedal bypass at [facility] 8. Hypothyrodism S/p thyroidectomy for [...] Vitaliy Nobles MD [facility] CARDIOLOGY [place], [place] [address] (Wo rk) 06/10/2022 Office Visit Dermatology Laura Scherer MD [facility] [address] [place], [place] [address] (Wo rk) documented as of this encounter Results (ABNORMAL) Basic Metabolic Panel (non-fasting) (04/16/2021 9:58 AM EDT) athologist Signature Glucose Lvl 77 65 - 199 [facility] mg/dL [facility] Comment: Diabetes: >=200 mg/dL plus symp toms BUN 23 (H) 10 - 20 mg/dL [facility] Creatinine 1.26 0.80 - 1.50 mg/dL [facility] Sodium 140 135 - 145 mmol/L [facility] Potassium 5.2 (H) 3.5 - 5.0 mmol/L [facility] Comment: Please note: ??Patients with WBC >100,00 0 may have falsely elevated Potassium levels. ??For accurate Potassium quantif ication in these patients send serum separator tube (gold top) for subsequent determinations. ??Contact the Clinical Chemistry Laboratory if there are any qu estions. Chloride 103 98 - 107 mmol/L [facility] CO2 28 22 - 31 mmol/L [facility] Anion Gap 9 5 - 15 mmol/L [facility] Calcium 9.3 8.5 - 10.5 mg/dL [facility] Estimated GFR 55 (L) >=60 mL/min/1.73 m?? [facility] [...] Address City/State/[place] [address] (ABNORMAL) pro-Brain Natriuretic Peptide (04/16/2021 9:58 AM EDT) P athologist Signature ProBNP 523 (H) <=124 pg/mL [facility] Specimen Anatomical Collection Method Collection Time Receive d Time (Source) Location / / Volume Laterality Blood 04/16/2021 9:58 AM 1 EDT 10:02 AM EDT Resulting Agency Comment Spec In Lab Zulma Plunkett MD CHEMISTRY ORDERABLES Performing Organization Address City/State/[place] [address] documented in this encounter Visit Diagnoses Diagnosis Chronic systolic heart failure documented in this encounter Care Teams Safe And Vault Installer Relationship Specialty Start Date End Date Lovely Vicente MD PCP - General 04/16/[address] [place] [address] documented as of this encounter
--- OUTSIDE RECORDS SUMMARY | 2022-03-09 15:24 | XMS_ITS | Encounter Summary ---
:1945 Author Organization [place] [address] Care Team Providers Name Role Phone Lovely Vicente MD Primary Care Provider Reason for Visit Reason Comments Establish Care Atrial Fibrillation Congestive Heart Failure Cardiomyopathy Encounter Details Date Type Department Care Team Description [facility]/06[facility] Osvaldo STRANGE [address] [facility] [address] [place], [place] CARDIOLOGY DEPT. [address] [place] [address] [phone] Social History Tobacco Use Types Packs/Day Years [...] today For any questions, call my office: [phone] To access your health care information, go to the web at: [email or web address] (you will need to register) For educational materials: [email or web address] Karel TRAMMELL.[facility], Clinical Cardiac Electrophysiology, [facility], [facility] A Healthy Heart: After Your Visit [...] least 2 servings of fish a week. Fence, mackerel, mcfadden, sardines, and chunk light tuna [...] irregular heartbeat. After you call 911, the pick pulling machine operator may tell you to chew [...] more? Visit our health information library at [email or web address]. You can also view health information on [employer], your personal patient account. Log in or sign up today. Enter F075 in the search box to learn more about A Healthy Heart: After Your Visit. ?? [id number] [employer] documented in this encounter Progress Notes Karel Mcelroy MD - 09/06/2019 2:20 PM EST Images from the original note were not included. Section of Cardiology/Cardiac Electrophysiology [facility] Clinical Cardiac Electrophysiology Consult Patient ID Don Fatima 1945 [id number] Don Fatima is referred to the EP clinic by Danette Maxwell APRN PhD Chief Complaint Dyspnea on exertion Ischemic cardiomyopathy History This is a 74 y.o. male following up/being seen in clinic for evaluation for ongoing anticoagulation. He has a [id number] score of ~ 6-7. 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, [...] on phone: None Gets together: None Attends taoist service: None Active member of club or [...] up planned in the EP clinic KAREL MCERLOY MD Cardiac Electrophysiology [facility] T: [phone] F: [phone] minutes of this 40 minute encounter were spent in counselling, as described above Cc: MD Danette Cr APRN PhD Janett Espino DPM documented in this encounter Plan of Treatment Upcoming Encounters Date Type Specialty Care Team Description 03/26/2022 Office Visit Cardiology Vitaliy Nobles MD [facility] ER [address] [place], [place] [address] (Wo rk) 06/10/2022 Office Visit Dermatology Laura Scherer MD [facility] ER [address] [place], [place] [address] (Wo rk) documented as of [...] 446 ms MUSE SYSTEM (Bezet) Calculated P [place] 37 degrees MUSE SYSTEM Calculated R [place] -23 degrees MUSE SYSTEM Calculated T [place] 116 degrees MUSE SYSTEM INTERPRETATION Normal sinus rhythm MUSE SYSTEM Inferior infarct (cited on or before 25-JAN-2013) ST & T wave abnormality, consider anterolateral ischemia Abnormal ECG When compared with ECG of 19-AUG-2017 10:23, No significant change was found Confirmed by MD Castellon Daniel ([id number]) on 09/08/2019 10:22:4 7 AM Specimen Anatomical [...] disease documented in this encounter Care Teams Cleat Layer Relationship Specialty Start Date End Date Lovely Vicente MD PCP - General 04/16/[address] [place] [address] documented as of this encounter
--- OUTSIDE RECORDS SUMMARY | 2022-03-09 15:24 | XMS_ITS | Encounter Summary ---
:1945 Author Organization [facility] [place] [address] Care Team Providers Name Role Phone Lovely Vicente MD Primary Care Provider Encounter Details Date Type Department Care Team Description 04/16/2021 Laboratory Appointment Lab 3L [facility] systolic [facility] [place] [id number] Social History Tobacco Use Types Packs/Day Years [...] Nobles MD [facility] CARDIOLOGY [place], [place] [address] (Wo rk) 06/10/2022 Office Visit Dermatology Laura Scherer MD [facility] DR [address] [place], [place] [address] (Wo rk) documented as of [...] athologist Signature ProBNP 523 (H) <=124 pg/mL [facility] Specimen Anatomical Collection Method Collection Time Receive d Time (Source) Location / / Volume Laterality Blood 04/16/2021 9:58 AM EDT 10:02 AM EDT Resulting Agency Comment Spec In Lab Zulma Plunkett MD CHEMISTRY ORDERABLES Performing Organization Address City/State/Z[place] [address] (ABNORMAL) Basic Metabolic Panel (non-fasting) (04/16/2021 9:58 AM EDT) athologist Signature Glucose Lvl 77 65 - 199 [facility] mg/dL [facility] [...] estions. Chloride 103 98 - 107 mmol/L [facility] CO2 28 22 - 31 mmol/L [facility] Anion Gap 9 5 - 15 mmol/L [facility] Calcium 9.3 8.5 - 10.5 mg/dL [facility] Estimated GFR 55 (L) >=60 mL/min/1.73 m?? [facility] [...] [place] [address] documented in this encounter Visit Diagnoses Diagnosis Chronic systolic heart failure documented in this encounter Care Teams Merchandise Adjustment Clerk Relationship Specialty Start Date End Date Lovely Vicente MD PCP - General 04/16/[address] [place] [address] documented as of this encounter
--- OUTSIDE RECORDS SUMMARY | 2022-03-09 15:24 | XMS_ITS | Encounter Summary ---
:1945 Author Organization [facility] [place] [address] Care Team Providers Name Role Phone Lovely Vicente MD Primary Care Provider Encounter Details Date Type Department Care Team Description 03/20/2021 Ancillary Procedure Radiology Library [place] [address] [place] [address] [phone] Social History Tobacco Use Types Packs/Day Years [...] Cardiology Vitaliy Nobles MD [facility] [address] [place], [place] [address] (Wo rk) 06/10/2022 Office Visit Dermatology Laura Scherer MD [facility] [address] [place], [place] [address] (Wo rk) documented as of [...] Address City/State/ZIP Code Phon e Number [place], [place] documented in this encounter Visit Diagnoses Not on filedocumented in this encounter Care Teams Surveyor Oil Well Directional Relationship Specialty Start Date End Date Lovely Vicente MD PCP - General 04/16/[address] [place] [address] documented as of this encounter
--- OUTSIDE RECORDS SUMMARY | 2022-03-09 15:24 | XMS_ITS | Encounter Summary ---
:1945 Author Organization [facility] [place] [address] Care Team Providers Name Role Phone Lovely Vicente MD Primary Care Provider Reason for Referral Consultation (Routine) - Closed Specialty Diagnoses / Referred By Contact Referred To Contact Procedures Cardiac Rehabilitation Diagnoses Acute HFrEF (heart failure with reduced ejection fraction) Janneth Padilla, Cardiac Rehab, [address] [place] CARDIOLOGY DEPT. [address] [place] [address] Referral ID Status Reason Start Date Expiration Date Visits V isits Requested Authorized [id number] Closed Consult, 12/12/2021 12/12/2022 36 36 Test & Treat Reason for Visit Auth/Cert Specialty Diagnoses / Procedures Referred By Contact Refer red To Contact Diagnoses NSTEMI Procedures emerg ipi Referral ID Status Reason Start Date Expiration Date Visits Requ ested Visits Authorized [id number] 1 1 Encounter Details Date Type Department Care Team Description 12/08/2021 - Hospital Encounter Intermediate Cardiac Iker Cuevas MD [facility] [place] [address] Non-ST elevation myocardial infarction ( NSTEMI); 12/12/2021 Care Unit Ifeanyi Rene MD [facility] [place] [address] ST elevation myocardial infarction (STEM I), unspecified artery; [facility] Acute HFr EF (heart failure with reduced ejection fraction) [place] [address] Social History Tobacco Use Types Packs/Day Years [...] Don Fatima Patient Age: 76 y.o. Language: Albanian Race: White Ethnicity: Not nor Admit date: [...] Peter PA-C Kelly LaFlamme PA-C Cardiovascular Medicine [phone] Discharge Diagnoses (Hospital Problems) and Secondary Diagnoses [...] 3.75 guiding catheter and a 3.5 Fr [place] 20 Mhz using Manual pullback. Imaging was successful. Image quality was good. The ostial LCX showed moderate diffuse atherosclerotic plaque with scattered three quadrant calcification. Measurements were performed after pre-dilation. Post Intervention: The stent was well expanded and apposed. Intravascular Ultrasound was performed in the distal LM using a 7 Fr EBU 3.75 guiding catheter and a 3.5 Fr [place] 20 Mhz using Manual pullback. Imaging was [...] may require modification of this regimen. Consult [facility] Interventional Cardiology for questions. The 1 year [...] vascular congestion and cardiomegaly. ?? TTE from [facility] 12/08/21 ? Prior Cardiac Studies: TTE [...] prior thyroidectomy in 2012 who presented to [facility] with 1 week progressing breathlessness with [...] 03/2021 with Liz Poole PA-C. ?? At [facility], respiratory distress with hypoxia 86% on [...] mg PO daily in place of lasix. [place] is new for him and he will have a BMP checked on 12/[address] Cuevas spoke with the patient's and told her that him drinking too much water and diet drinks did not cause his WV. This is what his thought was the [...] to be ~$24/mo; affordable per patient. Post [facility] he was started on Eliquis. He [...] appointments: During 8am-5pm Wednesday through Wednesday call [phone] to speak with a nurse in the cardiology clinic All other times call [phone] and ask to speak to the network security administrator golf tournament consultant. Return to work: One week Driving: No driving for 48 hours after catheterization. Follow up Appointments: PCP Lovely Vicente MD [phone] to see patient at the end of December for annual check up. Patient to see Dr. Lorenzana at 1120 am at December 19 for a post hospital check up. Splitter Machine Dr. De Oliveira to see you in [facility]. Left a message for office to set a date and time. Please call [phone] Nobles to see the patient for a same day cath in 2-3 weeks from now. Office to call with a date and time. For questions please call [phone] Home oxygen therapy: N/A Arrangements for VNA/home care: none Future Appointments and Orders Future Orders Complete By Expires Basic Metabolic Panel (non-fasting) [LAB15 Custom] 12/19/2021 (Approximate) 12/12/2022 Process Instructions: INCLUDES: Calcium, BUN, Creat, GFR, Glucose, Lytes Scheduling Instructions: Comments: Questions: Referral to Cardiac Rehab [BAP030 Custom] As directed Process Instructions: If no [...] appointments: During 8am-5pm Wednesday through Wednesday call [phone] to speak with a nurse in the cardiology clinic All other times call [phone] and ask to speak to the network security administrator golf tournament consultant. Return to work: One week Driving: No driving for 48 hours after catheterization. Follow up Appointments: PCP Lovely Vicente MD [phone] to see patient at the end of December for annual check up. Patient to see Dr. Lorenzana at 1120 am at December 19 for a post hospital check up. Splitter Machine Dr. De Oliveira to see you in [facility]. Left a message for office to set a date and time. Please call [phone] Nobles to see the patient for a same day cath in 2-3 weeks from now. Office to call with a date and time. For questions please call [phone] Home oxygen therapy: N/A Arrangements for VNA/home [...] Progress Note Patient Name: Don Fatima Service: SENIOR INFORMATION SYSTEMS ARCHITECT / PA Responsible Attending: Ifeanyi Truong MD [...] was given Lasix 80mg IV x1 in photonic laboratory technician. Tolerated procedure well. Home today [...] TROPONINT 1.13* 0.92* 0.89* Pertinent Radiographic/Diagnostic Results: R/[facility] 12/10/21 Hemodynamics: Right Heart Pressures Resting: [...] pulmonary vascular congestion and cardiomegaly. TTE from [facility] 12/08/21 Prior Cardiac Studies: TTE 07/28/2019 [...] with MD Janneth Neville PA 12/12/2021 Pager [phone] Associated attestation - Ifeanyi Truong MD - [...] ratio for each meal) Desirae Jett APRN [facility] Endocrinology Diabetes Management Pager [phone] 20 minutes of this 35 minute visit [...] Progress Note Patient Name: Don Fatima Service: SENIOR INFORMATION SYSTEMS ARCHITECT / PA Responsible Attending: Iker Cuevas MD [...] + trop. Known CAD with hx of WV and CABG. DM. MARIA VICTORIA.ICM. ??? ASHD [...] was given Lasix 80mg IV x1 in photonic laboratory technician. Tolerated procedure well. Review of [...] in this interval not displayed. Recent Labs 12/09/2161712/08/21220212/08/211801 TROPONINT 1.13* 0.92* 0.89* Pertinent Radiographic/Diagnostic Results: R/[facility] 12/10/21 Hemodynamics: Right Heart Pressures Resting: [...] pulmonary vascular congestion and cardiomegaly. TTE from [facility] 12/08/21 Prior Cardiac Studies: TTE 07/28/2019 [...] Progress Note Patient Name: Don Fatima Service: SENIOR INFORMATION SYSTEMS ARCHITECT / PA Responsible Attending: Iker Cuevas MD Reason for continued hospitalization: NSTEMI- s/p R/LHC- PCW 27, occluded SVGs s/p PCI to ostial LCX ADHF and hypoxia- IV diuresis Active Problems: Active Hospital Problems Diagnosis ??? Admitted with 2 days of sob, hypoxemia, and + trop. Known CAD with hx of W[place] and CABG. DM. MARIA VICTORIA.ICM. ??? ASHD [...] was given Lasix 80mg IV x1 in photonic laboratory technician. Tolerated procedure well. Review of [...] ??? heparin (porcine) infusion 1,600 Units/hr (12/09/21 4097) PRN Meds:ipratropium-albuteroL, senna-docusate, bisacodyL, sodium chloride 0.9 [...] Labs 12/10/21 042 INR 1.7 Recent Labs 12/10/215 12/09/21192912/09/21617 NA 140 138 139 K 3.9 4.2 4.2 CL 104 102 101 CO2 23 22 21* BUN 54* 56* 49* CREATININE 1.52* 1.75* 1.33 Recent Labs 12/09/21 0618 AST 25 ALT 15 ALKPHOS 75 BILITOT 1.1 BILIDIR 0.2 Recent Labs 12/10/2142412/09/21192912/09/2161712/08/21 1802 CALCIUM 8.0* 8.1* 8.8 8.6 MAGNESIUM 0.95 -- 0.81 0.86 Recent Labs 12/09/2161712/08/21220212/08/21 1802 TROPONINT 1.13* 0.92* 0.89* Pertinent Radiographic/Diagnostic Results: /[facility] 12/10/21 Hemodynamics: Right Heart Pressures Resting: [...] pulmonary vascular congestion and cardiomegaly. TTE from [facility] 12/08/21 Prior Cardiac Studies: TTE 07/28/2019 [...] PCW 27 and occluded SVGs with patent THMOPSON-LAD. PCI to ostial LCX successful. Recommended outpatient [...] Discussed with MD Migdalia Peter PA-C Pager #[phone] 12/10/2021 Cardiology Attending Note I have seen [...] Progress Note Patient Name: Don Fatima Service: SENIOR INFORMATION SYSTEMS ARCHITECT / PA Responsible Attending: Iker Cuevas MD Reason for continued hospitalization: NSTEMI- awaiting R/LHC ADHF and hypoxia- IV diuresis, R/LHC Active Problems: Active Hospital Problems Diagnosis ??? Admitted with 2 days of sob, hypoxemia, and + trop. Known CAD with hx of W[place] and CABG. DM. MARIA VICTORIA.ICM. ??? ASHD [...] ??? heparin (porcine) infusion 1,600 Units/hr (12/09/21 9442) PRN Meds:ipratropium-albuteroL, sodium chloride 0.9 % (flush), [...] pulmonary vascular congestion and cardiomegaly. TTE from [facility] 12/08/21 Prior Cardiac Studies: TTE 07/28/2019 [...] by his PCP. Home dosing 5 Mg HAYS/T///SA and 7.5 mg M/TH. Daily INR Heparin [...] Discussed with MD Migdalia Peter PA-C Pager #[phone] 12/09/2021 Cardiology Attending Note I have seen and examined the patient. I agree with the findings above. Developed CHF early this am despite getting more iv lasix last evening. Feeling better now. INR > 2. Lungs still wet at base. Echo at [facility] showed EF 35% with mild mod [...] + trop. Known CAD with hx of W[place] and CABG. DM. MARIA VICTORIA.ICM. ??? ASHD [...] prior thyroidectomy in 2012 who presented to [facility] with 1 week progressing breathlessness with [...] visit 03/2021 with Liz Poole PA-C. At [facility], respiratory distress with hypoxia 86% on [...] performed by Manny Mcknight MD at [facility] OR ??? PRO AMPUTATION FOOT, TRANSMETATARSAL Right 08/09/2017 AMPUTATION, TRANSMETATARSAL (WRVU 12.71) performed by Yonathan Smith MD at [facility] OR ??? PRO CABG, ARTERIAL, SINGLE N/A 07/07/2017 @CABG, USING ARTERIAL GRAFT;SINGLE ARTERIAL GRAFT (WRVU 33.75) performed by Yuan Retana MD at [facility] OR ??? PRO CABG, ARTERY-VEIN, TWO N/A 07/07/2017 @CABG, TWO VENOUS GRAFTS & ARTERIAL GRAFT (WRVU 7.93) performed by Yuan Retana MD at [facility] OR ??? PRO COLONOSCOPY, REMV LESN, SNARE 01/16/2014 COLONOSCOPY, POLYPECTOMY, REMOVAL LESION BY SNARE performed by Nohemi Jaimes MD at [facility] ENDOSCOPY ??? PRO DRESSING CHANGE UNDER ANESTHESIA Right 08/11/2017 (MSURG) DRESSING CHANGE (FOR OTHER THAN IVAN) UNDER ANES. (WRVU 0.86) performed by Lamar Smith MD at [facility] OR ??? PRO ENDOSCOPY W/VIDEO-ASST VEIN HARVEST, CABG Right 07/07/2017 ENDOSCOPIC HARVEST VEIN(S) FOR CABG (WRVU 0.31) performed by Yuan Retana MD at [facility] OR ??? PRO THYROIDECTOMY 03/28/2013 THYROIDECTOMY, TOTAL OR COMPLETE performed by Manny Mcknight MD at [facility] MAIN OR Significant Family History: Family History [...] (H) 65 - 199 mg/dL Labs at [facility] 12/08/2021-troponin I 8004 (UN L <60), [...] Monitor for ADRs. Trend troponins. Admission EKG. [facility] 12/09; consented. TTE. Telemetry monitoring, daily weights, I/O routine labs. Fasting lipid panel and TSH in a.m. #HFrEF Continue metoprolol and losartan. Lisinopril caused cough. Furosemide 40mg IV x1. He states she usually wakes 200-210 pounds. TTE #Paroxysmal atrial fibrillation Currently in sinus rhythm. Holding warfarin which is followed by his PCP. Home dosing 5 Mg HAYS/T/W/F/SA and 7.5 mg M/. Heparin infusion as [...] code #Diet-carb control; n.p.o. after midnight for [facility] #DVT prophy- heparin infusion #GI prophy- PPI Discussed with MD Morgan Peter PA-C APP2 pager [phone] 12/08/2021 Cardiology Attending Note I have seen [...] is type 1 due to graft or [place] coronary stenosis vs acute injury from CHF. [...] Type: *No Product type* / Secondary Insurance: [place] Prescription Coverage: Yes This plan was formulated [...] cath without complications. Migdalia Parker PA-C Pager #[phone] 12/10/2021 Initial Assessments - Nick Georges RN [...] COVID test: Lab Results Component Value Date [id number] Not Detected 12/08/2021 Past medical History: Past [...] spouse would be surrogate decision maker per [place] surrogate decision making law. (Only good for 180 days) Any patient receiving care at [facility] must abide by [place] law. The hierarchy for surrogate decision making [...] (i) The agent with financial power of maintenance service technician or a conservator appointed in accordance with [...] - standard, cane - straight Home Address: [address] [place] [address] [place] [address] Social & Family Supports: All names listed below confirmed with patient as current and correct Extended Emergency Contact Information Primary Emergency Contact: Kisha Fatima Address: [address] [place] [address] [place] [address] [facility] Mobile Relation: Spouse Secondary Emergency Contact: Elba Swenson Address: [address] [place] Relation: Child Current Care Provided [...] type* / Secondary Insurance: [employer] [place] Prescription Coverage: Yes Preferred Pharmacy: [facility] [id number] [id number] - [place], [place] - [address] [place] [id number] [place] Status: Patient is a : unable to assess Primary Care Provider: Lovely Vicente MD [phone] Patient/Caregiver Goals of Treatment: Get out of here Potential Needs for Transition of Care: none Agency Referrals: none patient has used [facility] in the past Transportation: no concerns Transportation Anticipated: family or friend will provide Concerns to be Addressed: patient refuses services, discharge planning Assessment: Patient is admitted to [facility] Service pager [phone] for 76 y.o.??male??with h/o??CAD s/p 3vCABG (THOMPSON-LAD, [...] status on current unit. Nick Georges RN recruiting administrator, Office of Care Management Pager: [phone] Brief Op Note - Vitaliy Nobles MD - 12/10/2021 8:31 AM EDT Images from the original note were not included. [facility] 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 Diabetes History: Don Fatima has had diabetes for 10 years. He has been on insulin for the last several years andis managed by his PCP. Lives in [place], [place] with his . States that he [...] Hold] heparin (porcine) infusion 1,600 Units/hr (12/09/21 5397) PRN: [SEP Hold] ipratropium-albuteroL, [SEP Hold] senna-docusate, [SEP Hold] bisacodyL, [SEP Hold] sodiumchloride 0.9 % (flush), [SEP Hold] lidocaine, [SEP Hold] nitroGLYcerin, [SEP Hold] glucose 40% oral geL OR [SEP Hold] dextrose 10% OR [SEP Hold] glucagon, [SEP Hold] heparin (porcine) infusion AND [SEP Hold] heparin (porcine), [SEP Hold] acetaminophen Allergy: Allergies Allergen Reactions ??? 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 Monitoring - continue BG tid ac & hs Diet - low fat/low carb diet Exercise - weight-bearing exercise 30 min/day, as tolerated Thank you for allowing us to provide care for your patient Desirae Johnie QUINONES Endocrinology Pager [phone] 70 minutes of this 80 minute visit [...] consult for 12/10. Cardiac cath scheduled for 05/18. NPO after midnight. PLAN MOVING FORWARD: Cardiac [...] + trop. Known CAD with hx of [place] and CABG. DM. MARIA VICTORIA.ICM. ??? ASHD [...] to remain on Med/Surg floor, please page [phone] for any further questions or concerns. LANDON [...] for further details. STEPHANIE Rebolledo 12/08/2021 Pager [phone] documented in this encounter Plan of Treatment Upcoming Encounters Date Type Specialty Care Team Description 03/26/2022 Office Visit Cardiology Vitaliy Nobles MD [facility] CARDIOLOGY [place], [place] [address] (Wo rk) 06/10/2022 Office Visit Dermatology Laura Scherer MD [facility] [address]-DERMAT [facility] [place], [place] [address] ( rk) Scheduled Referrals Name Type Priority Associated [...] Glucose 215 (H) 65 - 199 [facility] Comment: Supplemental ranges: <140 mg/dL before meals <180 mg/dL all other times of the day Specimen Anatomical Collection Method Collection Time Receive d Time (Source) Location / / Volume Laterality Blood 12/12/2021 7:42 AM 7:42 EDT AM EDT Ifeanyi Truong MD POINT OF CARE TEST ORDERABLE S Performing Organization Address City/State/[place] [address] (ABNORMAL) Differential, Automated (12/12/2021 4:51 AM EDT) athologist Signature Neutrophils % 75.4 % [facility] Neutr Abs (ANC) 5.95 1.70 - [facility] [address] [facility] x10(3)/[facility] LABORATORY Lymphocytes % 12.2 % [facility] Lymphocytes Abs 1.0 0.9 - 3.2 [facility] x10(3)/[facility] LABORATORY Monocytes % 9.5 % [facility] Monocyte Abs 0.8 0.3 - 0.9 [facility] x10(3)/[facility] LABORATORY Eosinophils % 1.8 % [facility] Eosinophils Abs 0.1 0.0 - 0.4 [facility] x10(3)/[facility] LABORATORY Basophils % 0.5 % [facility] Basophils Abs 0.0 0.0 - 0.1 [facility] x10(3)/[facility] LABORATORY Immature Gran % 0.60 % [facility] [...] Gran Abs 0.05 (H) 0.00 - 0.04 x10(3)/[facility] LABORATORY Specimen Anatomical Collection Method Collection Time Receive d Time (Source) Location / / Volume Laterality Blood 12/12/2021 4:51 AM 5:06 EDT AM EDT Resulting Agency Comment Spec In Lab Bijan Sun MD HEMATOLOGY ORDERABLES Performing Organization Address City/State/ZIP Code Phon e Number [place] [phone] (ABNORMAL) Hemogram (12/12/2021 4:51 AM EDT) Analysis Performed At Patho logist Time Signature WBC 7.9 4.0 - 9.5 [facility] x10(3)/[facility] LABORATORY RBC 4.19 (L) 4.58 - [facility] [address] [facility] x10(6)/[facility] LABORATORY Hemoglobin 12.1 (L) 13.7 - [facility] 16.5 g/dL [facility] Hematocrit 36.7 (L) 40.5 - [facility] 48.5 % [facility] MCV 87.6 82.9 - [facility] 93.1 [facility] LABORATORY MCH 28.9 27.5 - [facility] 32.1 pg [facility] MCHC 33.0 32.0 - [facility] 35.7 g/dL [facility] Platelets 231 145 - 357 [facility] x10(3)/[facility] LABORATORY RDWSD 47.2 (H) 36.0 - [facility] SU 45.0 [facility] RDWCV 14.6 (H) 11.4 - [facility] SU 13.8 % [facility] MPV 9.5 7.6 - 12.9 [facility] LABORATORY nRBC % Auto 0.0 % [facility] nRBC Abs Auto 0.000 0.000 - [facility] [address] [facility] x10(3)/[facility] LABORATORY Specimen Anatomical Collection Method Collection Time Receive d Time (Source) Location / / Volume Laterality Blood 12/12/2021 4:51 AM 2 5:06 EDT AM EDT Resulting Agency Comment Spec In Lab Bijan Sun MD HEMATOLOGY ORDERABLES Performing Organization Address City/[facility]/ZIP [facility] Phon e Number [place] [phone] (ABNORMAL) Prothrombin Time (12/12/2021 4:51 AM EDT) P athologist Signature PT 14.9 (H) 9.4 - 12.5 [facility] LABORATORY INR 1.3 [facility] LABORATORY [...] Cuevas MD HEMATOLOGY ORDERABLES Performing Organization Address City/[facility]/ZIP Code Phon e Number [place] [phone] (ABNORMAL) BMP w/fasting Glucose (12/12/2021 4:51 AM EDT) P athologist Signature Glucose 152 (H) 65 - 99 [facility] Fasting mg/dL [facility] Comment: ?Fasting* Glucose Interpretive [...] of Diabetes Mellitus, Position Statement from the [place] [employer]. ??Diabete s Care, Volume 33, [...] Cuevas MD CHEMISTRY ORDERABLES Performing Organization Address City/[facility]/ZIP Code Phon e Number [address] Magnesium (12/12/2021 4:51 AM EDT) athologist Signature Magnesium 1.02 0.69 - 1.07 [facility] mmol/L [facility] Specimen Anatomical Collection Method Collection Time Receive d Time (Source) Location / / Volume Laterality Blood 12/12/2021 4:51 AM 2 5:06 EDT AM EDT Resulting Agency Comment Spec In Lab Iker Cuevas MD CHEMISTRY ORDERABLES Performing Organization Address City/[facility]/ZIP Code Phon e Number [address] POCT Glucose (12/12/2021 3:43 AM EDT) athologist Signature POC Glucose 138 65 - 199 [facility] mg/dL [facility] Comment: Supplemental ranges: <140 mg/dL before meals <180 mg/dL all other times of the day Specimen Anatomical Collection Method Collection Time Receive d Time (Source) Location / / Volume Laterality Blood 12/12/2021 3:43 AM 2 3:43 EDT AM EDT Iker Cuevas MD POINT OF CARE TEST ORDERABLE S Performing Organization Address City/[facility]/ZIP Code Phon e Number [address] POCT Glucose (12/11/2021 11:44 PM EDT) athologist Signature POC Glucose 124 65 - 199 [facility] mg/dL [facility] Comment: Supplemental ranges: <140 mg/dL before meals <180 mg/dL all other times of the day Specimen Anatomical Collection Method Collection Time Receive d Time (Source) Location / / Volume Laterality Blood 12/11/2021 11:44 12/11/2021 PM EDT 11:44 PM EDT Iker Cuevas MD POINT OF CARE TEST ORDERABLE S Performing Organization Address City/State/[place] [address] (ABNORMAL) POCT Glucose (12/11/2021 8:12 PM EDT) athologist Signature POC Glucose 200 (H) 65 - 199 [facility] mg/dL [facility] Comment: Supplemental ranges: <140 mg/dL before meals <180 mg/dL all other times of the day Specimen Anatomical Collection Method Collection Time Receive d Time (Source) Location / / Volume Laterality Blood 12/11/2021 8:12 PM 2 8:12 EDT PM EDT Iker Cuevas MD POINT OF CARE TEST ORDERABLE S Performing Organization Address City/[facility]/[place] [address] (ABNORMAL) POCT Glucose (12/11/2021 6:50 PM EDT) athologist Signature POC Glucose 245 (H) 65 - 199 [facility] mg/dL [facility] Comment: Supplemental ranges: <140 mg/dL before meals <180 mg/dL all other times of the day Specimen Anatomical Collection Method Collection Time Receive d Time (Source) Location / / Volume Laterality Blood 12/11/2021 6:50 PM 2 6:50 EDT PM EDT Iker Cuevas MD POINT OF CARE TEST ORDERABLE S Performing Organization Address City/State/[place] [address] (ABNORMAL) POCT Glucose (12/11/2021 4:00 PM EDT) athologist Signature POC Glucose 383 (H) 65 - 199 [facility] mg/dL [facility] Comment: Supplemental ranges: <140 mg/dL before meals <180 mg/dL all other times of the day Specimen Anatomical Collection Method Collection Time Receive d Time (Source) Location / / Volume Laterality Blood 12/11/2021 4:00 PM 4:00 EDT PM EDT Iker Cuevas MD POINT OF CARE TEST ORDERABLE S Performing Organization Address City/State/ZIP Code Phon e Number [place] [address] (ABNORMAL) POCT Glucose (12/11/2021 12:01 PM EDT) P athologist Signature POC Glucose 342 (H) 65 - 199 [place] [facility] mg/dL [facility] LABORATORY Comment: Supplemental ranges: <140 mg/dL before meals <180 mg/dL all other times of the day Specimen Anatomical Collection Method Collection Time Receive d Time (Source) Location / / Volume Laterality Blood 12/11/2021 12:01 12/11/2021 PM EDT 12:01 PM EDT Iker Cuevas MD POINT OF CARE TEST ORDERABLE S Performing Organization Address City/[facility]/ZIP [place] [address] COVID-19 PCR (12/11/2021 10:13 AM EDT) Patholo gist Method Time Signature SARS-CoV-2 Not Detected Not Detected [facility] LAB[facility] Comment: This result should [...] diagnosis of COVID-19 is performed using the [employer] RONNA S-CoV-2 Assay as authorized by the FDA Emergency Use Authorization (EUA). This EUA assay is intended for In-vitro Diagnostic (IVD) use with respiratory sp ecimens such as nasopharyngeal swabs collected from individuals during the ac bishop paiute phase of infection. This assay is performed based on the instructions for use provided by [employer] and additional guidance provided by CDC [...] fact sheets at the following FDA website: https://www.fda.gov/medical-devices/tvjsjulywor-umgeift-0473-jaqlh-67-xgohrwdsb- xre-mucnwafdtqnphh-ytfehzh-devices/hxppt-phkdgylakim-rutk SARS-Cov-2 RNA Source [employer] ARCHITECT Swab [facility] LABORATORY Specimen (Source) Anatomical Collection Method Collection Time Re ceived Time Location / / Volume Laterality Nasopharyngeal Swab 12/11/2021 10:13 11/23 AM EDT 11:16 AM EDT Comment: Symptoms->Surveillance Resulting Agency Comment Spec In Lab Iker Cuevas MD MICROBIOLOGY - GENERAL ORDER [place] Performing Organization Address City/State/ZIP Code Phon e Number [address] POCT Glucose (12/11/2021 7:34 AM EDT) P athologist Signature POC Glucose 198 65 - 199 [facility] mg/dL [facility] LABORATORY Comment: Supplemental ranges: <140 mg/dL before meals <180 mg/dL all other times of the day Specimen Anatomical Collection Method Collection Time Receive d Time (Source) Location / / Volume Laterality Blood 12/11/2021 7:34 AM 2 7:34 EDT AM EDT Iker Cuevas MD POINT OF CARE TEST ORDERABLE S Performing Organization Address City/[facility]/ZIP Code Phon e Number [address] (ABNORMAL) POCT Glucose (12/11/2021 5:07 AM EDT) P athologist Signature POC Glucose 208 (H) 65 - 199 [facility] mg/dL [facility] LABORATORY Comment: Supplemental ranges: <140 mg/dL before meals <180 mg/dL all other times of the day Specimen Anatomical Collection Method Collection Time Receive d Time (Source) Location / / Volume Laterality Blood 12/11/2021 5:07 AM 2 5:07 EDT AM EDT Iker Cuevas MD POINT OF CARE TEST ORDERABLE S Performing Organization Address City/State/ZIP Code Phon e Number [address] (ABNORMAL) Differential, Automated (12/11/2021 4:28 AM EDT) [facility] gist Method Time Signature Neutrophils % 79.6 % [facility] LABORATORY Neutr Abs (ANC) 7.01 (H) 1.70 - [facility] [address] [facility] x10(3)/[facility] L LABORATORY Lymphocytes % 9.1 % [facility] LABORATORY Lymphocytes Abs 0.8 (L) 0.9 - 3.2 [facility] x10(3)/[facility] LABORATORY Monocytes % 9.2 % [facility] LABORATORY Monocyte Abs 0.8 0.3 - 0.9 [facility] x10(3)/[facility] LABORATORY Eosinophils % 1.3 % [facility] LABORATORY Eosinophils Abs 0.1 0.0 - 0.4 [facility] x10(3)/[facility] LABORATORY Basophils % 0.5 % [facility] LABORATORY Basophils Abs 0.0 0.0 - 0.1 [facility] x10(3)/[facility] LABORATORY Immature Gran % 0.30 [...] [facility] Specimen Anatomical Collection Method Collection Time Receive d Time (Source) Location / / Volume Laterality Blood 12/11/2021 4:28 AM 2 4:37 EDT AM EDT Resulting Agency Comment Spec In Lab Bijan Sun MD HEMATOLOGY ORDERABLES Performing Organization Address City/State/[place] [address] (ABNORMAL) Hemogram (12/11/2021 4:28 AM EDT) Analysis Performed At Patho logist Time Signature WBC 8.8 4.0 - 9.5 [facility] x10(3)/[facility] LABORATORY RBC 4.15 (L) 4.58 - [facility] [address] [facility] x10(6)/[facility] LABORATORY Hemoglobin 11.9 (L) 13.7 - [facility] 16.5 g/dL [facility] LABORATORY Hematocrit 36.9 (L) 40.5 - [facility] 48.5 % [facility] LABORATORY MCV 88.9 82.9 - [place] [facility] 93.1 [facility] LABORATORY MCH 28.7 27.5 - [place] OL[facility] 32.1 pg [facility] LABORATORY MCHC 32.2 32.0 - [place] [facility] 35.7 g/dL [facility] LABORATORY Platelets 211 145 - 357 [facility] x10(3)/[facility] LABORATORY RDWSD 48.3 (H) 36.0 - [place] [facility] 45.0 [facility] LABORATORY RDWCV 14.8 (H) 11.4 - [facility] SU 13.8 % [facility] LABORATORY MPV 9.6 7.6 - 12.9 [facility] LABORATORY nRBC % Auto 0.0 % [facility] LABORATORY nRBC Abs Auto 0.000 0.000 - [place] [facility] [address] [facility] x10(3)/[facility] LABORATORY Specimen Anatomical Collection Method Collection Time Receive d Time (Source) Location / / Volume Laterality Blood 12/11/2021 4:28 AM 2 4:37 EDT AM EDT Resulting Agency Comment Spec In Lab Bijan uSn MD HEMATOLOGY ORDERABLES Performing Organization Address City/State/[place] [address] (ABNORMAL) Prothrombin Time (12/11/2021 4:28 AM EDT) P athologist Signature PT 17.7 (H) 9.4 - 12.5 [facility] LABORATORY INR 1.6 [facility] LABORATORY Comment: [...] Organization Address City/State/[place] [address] (ABNORMAL) BMP w/fasting Glucose (12/11/2021 4:28 AM EDT) P athologist Signature Glucose 207 (H) 65 - 99 [facility] Fasting mg/dL [facility] LABORATORY Comment: ?Fasting* Glucose Interpretive [...] of Diabetes Mellitus, Position Statement from the [place] [employer]. ??Diabete s Care, Volume 33, Supplement 1, Jul 2009 BUN 49 (H) 10 - 20 mg/dL [facility] LABORATORY Creatinine 1.43 0.80 - 1.50 mg/dL [facility] [...] Organization Address City/State/[place] [address] Magnesium (12/11/2021 4:28 AM EDT) P athologist Signature Magnesium 1.04 0.69 - 1.07 [facility] mmol/L [facility] LABORATORY Specimen Anatomical Collection Method Collection Time Receive d Time (Source) Location / / Volume Laterality Blood 12/11/2021 4:28 AM 2 4:37 EDT AM EDT Resulting Agency Comment Spec In Lab Iker Cuevas MD CHEMISTRY ORDERABLES Performing Organization Address City/State/ZIP Code Phon e Number [address] POCT Glucose (12/11/2021 3:58 AM EDT) P athologist Signature POC Glucose 189 65 - 199 [facility] mg/dL [facility] LABORATORY Comment: Supplemental ranges: <140 mg/dL before meals <180 mg/dL all other times of the day Specimen Anatomical Collection Method Collection Time Receive d Time (Source) Location / / Volume Laterality Blood 12/11/2021 3:58 AM 2 3:58 EDT AM EDT Iker Cuevas MD POINT OF CARE TEST ORDERABLE S Performing Organization Address City/[facility]/[place] [address] (ABNORMAL) POCT Glucose (12/10/2021 11:45 PM EDT) athologist Signature POC Glucose 205 (H) 65 - 199 [facility] LAB[facility] Comment: Supplemental ranges: <140 mg/dL before meals <180 mg/dL all other times of the day Specimen Anatomical Collection Method Collection Time Receive d Time (Source) Location / / Volume Laterality Blood 12/10/2021 11:45 12/10/2021 PM EDT 11:45 PM EDT Iker Cuevas MD POINT OF CARE TEST ORDERABLE S Performing Organization Address City/[facility]/[place] [address] (ABNORMAL) POCT Glucose (12/10/2021 7:54 PM EDT) athologist Signature POC Glucose 225 (H) 65 - 199 [facility]dL [facility] LABOR[facility]ORY Comment: Supplemental ranges: <140 mg/dL before meals <180 mg/dL all other times of the day Specimen Anatomical Collection Method Collection Time Receive d Time (Source) Location / / Volume Laterality Blood 12/10/2021 7:54 PM 2 7:54 EDT PM EDT Iker Cuevas MD POINT OF CARE TEST ORDERABLE S Performing Organization Address City/State/[place] [address] Potassium (12/10/2021 7:46 PM EDT) athologist Signature Potassium 4.2 3.5 - 5.0 [facility] mmol/L [facility] LABORATORY Comment: Please note: ??Patients [...] Organization Address City/State/[place] [address] (ABNORMAL) Basic Metabolic Panel (non-fasting) (12/10/2021 6:12 PM EDT) athologist Signature Glucose Lvl 246 (H) 65 - 199 [facility] mg/dL [facility] LABORATORY Comment: Diabetes: >=200 mg/dL plus symp toms BUN 50 (H) 10 - 20 mg/dL [facility] LABORATORY Creatinine 1.39 0.80 - 1.50 mg/dL [facility] LABORATORY Sodium 138 135 - [...] Organization Address City/State/[place] [address] POCT Glucose (12/10/2021 4:59 PM EDT) athologist Signature POC Glucose 158 65 - 199 [facility] mg/dL [facility] LAB[facility] Comment: Supplemental ranges: <140 mg/dL before meals <180 mg/dL all other times of the day Specimen Anatomical Collection Method Collection Time Receive d Time (Source) Location / / Volume Laterality Blood 12/10/2021 4:59 PM 2 4:59 EDT PM EDT Iker Cuevas MD POINT OF CARE TEST ORDERABLE S Performing Organization Address City/State/[place] [address] (ABNORMAL) POCT Glucose (12/10/2021 12:43 PM EDT) athologist Signature POC Glucose 241 (H) 65 - 199 [facility] mg/dL [facility] LAB[facility] Comment: Supplemental ranges: <140 mg/dL before meals <180 mg/dL all other times of the day Specimen Anatomical Collection Method Collection Time Receive d Time (Source) Location / / Volume Laterality Blood 12/10/2021 12:43 12/10/2021 PM EDT 12:43 PM EDT Iker Cuevas MD POINT OF CARE TEST ORDERABLE S Performing Organization Address City/State/[place] [address] EKG 12 Lead (12/10/2021 11:17 AM EDT) Component Value Ref Range Test Analysis Performed Pathologis t Method Time At Signature Ventricular rate 62 BPM MUSE SYSTEM Atrial Rate 62 BPM MUSE SYSTEM P-R Interval 142 ms MUSE SYSTEM QRS Duration 100 ms MUSE SYSTEM Q-T Interval 434 ms MUSE SYSTEM QTC Calculated 440 ms MUSE SYSTEM (Bezet) Calculated P Tiger 34 degrees MUSE SYSTEM Calculated R Tiger -39 degrees MUSE SYSTEM Calculated T Tiger 92 degrees MUSE SYSTEM INTERPRETATION Normal sinus [...] SYSTEM - 12/10/2021 12:04 PM E DT ?[facility] ? Cardiac Cathete rization/Intervention Report ? Patient Name: Don Fatima. ? Procedure Date: 12/10/2021 ? A #: [id number] ? Primary Physician: Nobles, Vitaliy P ? Case #: [id number] ? File Name: [id number] ? Catheterization Order Number: [id number] ? [facility] ? Final Report [place], [place] ? Patient Name: ? Don E. Stewa rt ? ID#: ?[id number] ? : ?1945 ? Procedure Date: ? December 10, 2021 ? Case #: ? [id number] ? Room: ? 1 ? Case Physician: [...] was ?designated as ASA Class III. e [facility] clinical frailty scale is 5: Mildly [...] procedure was Urgent. The indication for ?the photonic laboratory technician visit is ACS great er [...] ?3.75 guiding catheter and a 3.5 Fr [place] 20 Mhz using Manual ?pullback. ??Imaging was [...] ?3.75 guiding catheter and a 3.5 Fr [place] 20 Mhz using Manual ?pullback. ??Imaging was [...] Antiplatelet (DAPT) Recommendations : ?Drug eluting stent (TUCEKR) insert ed. ?P2Y12 Loading dose Prasugrel 60 [...] require ?modification of this regimen. C onsult [facility] Interventional Cardiology for ?questions. ?The 1 year [...] and bypass graft study. ? Vitaliy P Mallorie M.D. ? Electronically Signed by: Vitaliy P Mallorie M .D. ? Report Finalized: 12/10/2021 ??11:55 ? Report Last Ammended: 01/14/2022 ??12:09 ? Procedure Note Vitaliy Nobles MD - 01/14/2022 [facility] Cardiac Catheterization/Intervention Re port Patient Name: Don Fatima Procedure Date: 12/10/2021 A #: [id number] Primary Physician: Vitaliy Nobles Case #: [id number] File Name: [id number] Catheterization Order Number: [id number] [facility] Final [facility] [place], [place] Patient Name: Don Fatima ID#: [...] e was Urgent. The indication for the photonic laboratory technician visit is ACS greater than [...] and a 3.5 Fr [place] 20 Mhz using Manual pullback. Imaging was [...] and a 3.5 Fr [place] 20 Mhz using Manual pullback. Imaging was [...] require modification of this regimen. Consult [facility] for questions. The 1 year [...] Glucose 262 (H) 65 - 199 [facility]dL [facility] LAB[facility] Comment: Supplemental ranges: <140 mg/dL before meals <180 mg/dL all other times of the day Specimen Anatomical Collection Method Collection Time Receive d Time (Source) Location / / Volume Laterality Blood 12/10/2021 10:30 12/10/2021 AM EDT 10:30 AM EDT Iker Cuevas MD POINT OF CARE TEST ORDERABLE S Performing Organization Address City/[facility]/[place] [address] (ABNORMAL) POCT Glucose (12/10/2021 9:48 AM EDT) athologist Signature POC Glucose 279 (H) 65 - 199 [facility] mg/dL [facility] LABORATORY Comment: Supplemental ranges: <140 mg/dL before meals <180 mg/dL all other times of the day Specimen Anatomical Collection Method Collection Time Receive d Time (Source) Location / / Volume Laterality Blood 12/10/2021 9:48 AM 9:48 EDT AM EDT Iker Cuevas MD POINT OF CARE TEST ORDERABLE S Performing Organization Address City/[facility]/[place] [address] (ABNORMAL) POCT Glucose (12/10/2021 9:07 AM EDT) athologist Signature POC Glucose 268 (H) 65 - 199 [facility] mg/dL [facility] LABORATORY Comment: Supplemental ranges: <140 mg/dL before meals <180 mg/dL all other times of the day Specimen Anatomical Collection Method Collection Time Receive d Time (Source) Location / / Volume Laterality Blood 12/10/2021 9:07 AM 2 9:07 EDT AM EDT Iker Cuevas MD POINT OF CARE TEST ORDERABLE S Performing Organization Address City/[facility]/[place] [address] (ABNORMAL) Point of Care Blood Gas Historical (12/10/2021 9:04 AM EDT) [facility] Method Time Signature POC pH 7.40 7.35 - [facility] 7.45 [facility] LABORATORY POC PCO2 40 35 - 45 [facility] LABORATORY POC PO2 63 (L) 85 - 104 [facility] LABORATORY POC Base Excess 0.0 -3.0 - 3.0 [facility] K mmol/L [facility] LABORATORY POC HCO3 24.8 20.0 - [facility] 26.[facility] mmol[facility] POC Sodium 143 135 - 145 [facility] mmol/L [facility] LABORATORY POC Potassium 3.7 3.5 - 5.0 [facility] mmol/L [facility] LABORATORY POC Ionized Ca 1.07 (L) 1.15 - [facility] 1.[address] [facility] mmol/[facility] LABORATORY POC Hematocrit 30.0 (L) 40.0 - [facility] 51.0 % [facility] LABORATORY POC Calc Hgb 10.2 (L) 13.7 - [facility] 17.5 g/dL [facility] LABORATORY Comment: The calculation of hemoglobin f rom hematocrit assumes a normal MCHC. POC Bgas Loc CC LAB [facility] LABORATORY Specimen Anatomical Collection Method Collection Time Receive d Time (Source) Location / / Volume Laterality Blood 12/10/2021 9:04 AM 2 EDT 12:00 PM EDT Ifeanyi Truong MD CHEMISTRY ORDERABLES Performing Organization Address City/[facility]/[place] [address] (ABNORMAL) POCT Glucose (12/10/2021 7:19 AM EDT) athologist Signature POC Glucose 274 (H) 65 - 199 [facility] mg/dL [facility] LABORATORY Comment: Supplemental ranges: <140 mg/dL before meals <180 mg/dL all other times of the day Specimen Anatomical Collection Method Collection Time Receive d Time (Source) Location / / Volume Laterality Blood 12/10/2021 7:19 AM 2 7:19 EDT AM EDT Iker Cuevas MD POINT OF CARE TEST ORDERABLE S Performing Organization Address City/[facility]/[place] [address] Heparin (unfractionated) Level (12/10/2021 4:25 AM EDT) athologist [facility] Heparin UFH 0.69 IU/mL [facility] LABORATORY Comment: Heparin (anti-Xa) levels [...] Cuevas MD HEMATOLOGY ORDERABLES Performing Organization Address City/[facility]/ZIP Code Phon e Number [address] (ABNORMAL) Differential, Automated (12/10/2021 4:25 AM EDT) Patholo gist Method Time Signature Neutrophils % 79.8 % [facility] LABORATORY Neutr Abs (ANC) 7.47 (H) 1.70 - [facility] [address] [facility] x10(3)/[facility] L LABORATORY Lymphocytes % 10.6 % [facility] LABORATORY Lymphocytes Abs 1.0 0.9 - 3.2 [facility] x10(3)/[facility] LABORATORY Monocytes % 8.4 % [facility] LABORATORY Monocyte Abs 0.8 0.3 - 0.9 [facility] x10(3)/[facility] LABORATORY Eosinophils % 0.6 % [facility] LABORATORY Eosinophils Abs 0.1 0.0 - 0.4 [facility] x10(3)/[facility] LABORATORY Basophils % 0.2 % [facility] LABORATORY Basophils Abs 0.0 0.0 - 0.1 [place] [address]000(3)/[facility] LABORATORY Immature Gran % 0.40 [...] [facility] LABORATORY Specimen Anatomical Collection Method Collection Time Receive d Time (Source) Location / / Volume Laterality Blood 12/10/2021 4:25 AM 2 4:34 EDT AM EDT Resulting Agency Comment Spec In Lab [facility] HEMATOLOGY ORDERABLES Performing Organization Address City/State/[place] [address] (ABNORMAL) Hemogram (12/10/2021 4:25 AM EDT) Analysis Performed At Patho logist Time Signature WBC 9.4 4.0 - 9.5 [facility] x10(3)/[facility] LABORATORY RBC 3.81 (L) 4.58 - [facility] 5.[address] [facility] x10(6)/[facility] LABORATORY Hemoglobin 11.1 (L) 13.7 - [facility] 16.5 g/dL [facility] LABORATORY Hematocrit 34.0 (L) 40.5 - [place] [facility] 48.5 % [facility] LABORATORY MCV 89.2 82.9 - [facility] 93.1 [facility] LABORATORY MCH 29.1 27.5 - [facility] 32.1 pg [facility] LABORATORY MCHC 32.6 32.0 - [place] [facility] 35.7 g/dL [facility] LABORATORY Platelets 183 145 - 357 [facility] x10(3)/[facility] LABORATORY RDWSD 49.9 (H) 36.0 - [facility] 45.0 [facility] LABORATORY RDWCV 15.2 (H) 11.4 - [facility] 13.8 % [facility] LABORATORY MPV 9.8 7.6 - 12.9 [facility] LABORATORY nRBC % Auto 0.0 % [facility] LABORATORY nRBC Abs Auto 0.000 0.000 - [facility] [address] [facility] x10(3)/[facility] LABORATORY Specimen Anatomical Collection Method Collection Time Receive d Time (Source) Location / / Volume Laterality Blood 12/10/2021 4:25 AM 4:34 EDT AM EDT Resulting Agency Comment Spec In Lab Morgan BROWN HEMATOLOGY ORDERABLES Performing Organization Address City/State/[place] [address] (ABNORMAL) Prothrombin Time (12/10/2021 4:25 AM EDT) P athologist Signature PT 20.0 (H) 9.4 - 12.5 [facility] LABORATORY INR 1.7 [facility] LABORATORY [...] Organization Address City/State/[place] [address] (ABNORMAL) BMP w/fasting Glucose (12/10/2021 4:25 AM EDT) athologist Signature Glucose 210 (H) 65 - 99 [facility] Fasting mg/dL [facility] LABORATORY Comment: ?Fasting* Glucose Interpretive [...] of Diabetes Mellitus, Position Statement from the [place] [employer]. ??Diabete s Care, Volume 33, Supplement 1, Jul 2009 BUN 54 (H) 10 - 20 mg/dL [facility] LABORATORY Creatinine 1.52 (H) 0.80 - 1.50 mg/dL [facility] [...] Cuevas MD CHEMISTRY ORDERABLES Performing Organization Address City/[facility]/ZIP Code Phon e Number [address] Magnesium (12/10/2021 4:25 AM EDT) P athologist Signature Magnesium 0.95 0.69 - 1.07 [facility] mmol/L [facility] LABORATORY Specimen Anatomical Collection Method Collection Time Receive d Time (Source) Location / / Volume Laterality Blood 12/10/2021 4:25 AM 2 4:34 EDT AM EDT Resulting Agency Comment Spec In Lab Iker Cuevas MD CHEMISTRY ORDERABLES Performing Organization Address City/[facility]/ZIP Code Phon e Number [address] POCT Glucose (12/10/2021 1:58 AM EDT) athologist Signature POC Glucose 164 65 - 199 [facility] mg/dL [facility] LABORATORY Comment: Supplemental ranges: <140 mg/dL before meals <180 mg/dL all other times of the day Specimen Anatomical Collection Method Collection Time Receive d Time (Source) Location / / Volume Laterality Blood 12/10/2021 1:58 AM 2 1:58 EDT AM EDT Iker Cuevas MD POINT OF CARE TEST ORDERABLE S Performing Organization Address City/State/[place] [address] (ABNORMAL) POCT Glucose (12/09/2021 9:02 PM EDT) athologist Signature POC Glucose 313 (H) 65 - 199 [facility] mg/dL [facility] LABORATORY Comment: Supplemental ranges: <140 mg/dL before meals <180 mg/dL all other times of the day Specimen Anatomical Collection Method Collection Time Receive d Time (Source) Location / / Volume Laterality Blood 12/09/2021 9:02 PM 2 9:02 EDT PM EDT Iker Cuevas MD POINT OF CARE TEST ORDERABLE S Performing Organization Address City/[facility]/[place] [address] Heparin (unfractionated) Level (12/09/2021 7:30 PM EDT) athologist Signature Heparin UFH 0.48 IU/mL [facility] LABORATORY Comment: Heparin (anti-Xa) levels [...] Organization Address City/State/[place] [address] (ABNORMAL) Basic Metabolic Panel (non-fasting) (12/09/2021 7:30 PM EDT) athologist Signature Glucose Lvl 372 (H) 65 - 199 [facility] mg/dL [facility] LABORATORY Comment: Diabetes: >=200 mg/dL plus symp toms BUN 56 (H) 10 - 20 mg/dL [facility] Creatinine 1.75 (H) 0.80 - 1.50 mg/dL [facility] Sodium 138 135 - [...] Organization Address City/State/[place] [address] (ABNORMAL) POCT Glucose (12/09/2021 6:34 PM EDT) athologist Signature POC Glucose 408 (H) 65 - 199 [facility] Comment: Supplemental ranges: <140 mg/dL before meals <180 mg/dL all other times of the day Specimen Anatomical Collection Method Collection Time Receive d Time (Source) Location / / Volume Laterality Blood 12/09/2021 6:34 PM 2 6:34 EDT PM EDT Iker Cuevas MD POINT OF CARE TEST ORDERABLE S Performing Organization Address City/[facility]/[place] [address] (ABNORMAL) POCT Glucose (12/09/2021 6:32 PM EDT) athologist Signature POC Glucose 356 (H) 65 - 199 [facility] SU mg/dL [facility] Comment: Supplemental ranges: <140 mg/dL before meals <180 mg/dL all other times of the day Specimen Anatomical Collection Method Collection Time Receive d Time (Source) Location / / Volume Laterality Blood 12/09/2021 6:32 PM 2 6:32 EDT PM EDT Iker Cuevas MD POINT OF CARE TEST ORDERABLE S Performing Organization Address City/State/[place] [address] (ABNORMAL) POCT Glucose (12/09/2021 4:19 PM EDT) athologist Signature POC Glucose 347 (H) 65 - 199 [place] [facility] mg/dL [facility] Comment: Supplemental ranges: <140 mg/dL before meals <180 mg/dL all other times of the day Specimen Anatomical Collection Method Collection Time Receive d Time (Source) Location / / Volume Laterality Blood 12/09/2021 4:19 PM 2 4:19 EDT PM EDT Iker Cuevas MD POINT OF CARE TEST ORDERABLE S Performing Organization Address City/State/[place] [address] Heparin (unfractionated) Level (12/09/2021 1:29 PM EDT) athologist Signature Heparin UFH 0.42 IU/mL [facility] Comment: Heparin (anti-Xa) levels [...] Cuevas MD HEMATOLOGY ORDERABLES Performing Organization Address City/[facility]/[place] [address] (ABNORMAL) POCT Glucose (12/09/2021 12:02 PM EDT) athologist Signature POC Glucose 235 (H) 65 - 199 [facility] SU mg/dL [facility] Comment: Supplemental ranges: <140 mg/dL before meals <180 mg/dL all other times of the day Specimen Anatomical Collection Method Collection Time Receive d Time (Source) Location / / Volume Laterality Blood 12/09/2021 12:02 12/09/2021 PM EDT 12:02 PM EDT Iker Cuevas MD POINT OF CARE TEST ORDERABLE S Performing Organization Address City/State/[place] [address] (ABNORMAL) POCT Glucose (12/09/2021 9:44 AM EDT) athologist Signature POC Glucose 214 (H) 65 - 199 [facility]dL [facility] Comment: Supplemental ranges: <140 mg/dL before meals <180 mg/dL all other times of the day Specimen Anatomical Collection Method Collection Time Receive d Time (Source) Location / / Volume Laterality Blood 12/09/2021 9:44 AM 9:44 EDT AM EDT Iker Cuevas MD POINT OF CARE TEST ORDERABLE S Performing Organization Address City/[facility]/[place] [address] EKG 12 Lead (12/09/2021 7:57 AM EDT) Component Value Ref Range Test Analysis Performed Pathologis t Method Time At Signature Ventricular rate 101 BPM MUSE SYSTEM Atrial Rate 101 BPM MUSE SYSTEM P-R Interval 150 ms MUSE SYSTEM QRS Duration 112 ms MUSE SYSTEM Q-T Interval 364 ms MUSE SYSTEM QTC Calculated 471 ms MUSE SYSTEM (Bezet) Calculated P Tiger 59 degrees MUSE SYSTEM Calculated R Tiger -42 degrees MUSE SYSTEM Calculated T Tiger 102 degrees MUSE SYSTEM INTERPRETATION Sinus tachycardia Occasional Premature ventricular com plexes MUSE SYSTEM Left axis deviation 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) Abnormal ECG When compared with ECG of 08-DEC-2021 16:40, Premature ventricular complexes are now Present Confirmed by MD Fernandez Danette ([id number]) on 12/10/2021 4:55:06 PM Specimen Anatomical Collection Method Collection Time Receive d Time (Source) Location / / Volume Laterality 12/09/2021 7:57 AM 05/18/202 2 4:55 EDT PM EDT Iker Cuevas MD ECG ORDERABLES Performing Organization Address City/State/ZIP Code Phon e Number MUSE SYSTEM (ABNORMAL) POCT Glucose (12/09/2021 7:28 AM EDT) P athologist Signature POC Glucose 263 (H) 65 - 199 [facility] mg/dL [facility] Comment: Supplemental ranges: <140 mg/dL before meals <180 mg/dL all other times of the day Specimen Anatomical Collection Method Collection Time Receive d Time (Source) Location / / Volume Laterality Blood 12/09/2021 7:28 AM 2 7:28 EDT AM EDT Iker Cuevas MD POINT OF CARE TEST ORDERABLE S Performing Organization Address City/State/[place] [address] (ABNORMAL) Hemoglobin A1c (12/09/2021 6:18 AM EDT) Analysis Performed At Patho logist Time Signature Hemoglobin A1C 7.4 (H) 4.3 - 5.6 [facility] % [facility] Comment: Reference Range: 4.3 [...] Mellitus, Diabetes Care 2013; 36: Suppl. 1, S67-60 Est Avg Gluc See note mg/dL [place] [...] into estimated average glucose values. ??Diabetes Care 2008:31(8):4959-6376. Specimen Anatomical Collection Method Collection Time Receive d Time (Source) Location / / Volume Laterality Blood Venous Draw / 12/09/2021 6:18 AM 12/10/19 22 Unknown EDT 12:24 PM EDT Resulting Agency Comment Spec In Lab Migdalia BROWN CHEMISTRY ORDERABLES Performing Organization Address City/State/[place] [address] (ABNORMAL) Prothrombin Time (12/09/2021 6:18 AM EDT) P athologist Signature PT 26.6 (H) 9.4 - 12.5 [facility] LABORATORY INR 2.3 [facility] LABORATORY [...] Organization Address City/State/[place] [address] Heparin (unfractionated) Level (12/09/2021 6:18 AM EDT) P athologist Signature Heparin UFH 0.24 IU/mL [facility] LABORATORY Comment: Heparin (anti-Xa) levels [...] Cuevas MD HEMATOLOGY ORDERABLES Performing Organization Address City/[facility]/ZIP Code Phon e Number [address] (ABNORMAL) Differential, Automated (12/09/2021 6:18 AM EDT) Patholo gist Method Time Signature Neutrophils % 91.5 % [facility] Neutr Abs (ANC) 15.78 (H) 1.70 - [facility] [address] [facility] x10(3)/[facility] L LABORATORY Lymphocytes % 2.9 % [facility] Lymphocytes Abs 0.5 (L) 0.9 - 3.2 [facility] x10(3)/[facility] LABORATORY Monocytes % 4.9 % [facility] Monocyte Abs 0.8 0.3 - 0.9 [facility] x10(3)/[facility] LABORATORY Eosinophils % 0.0 % [facility] Eosinophils Abs 0.0 0.0 - 0.4 [facility] x10(3)/[facility] LABORATORY Basophils % 0.2 % [facility] Basophils Abs 0.0 0.0 - 0.1 [facility] x10(3)/[facility] LABORATORY Immature Gran % 0.50 [...] Gran Abs 0.09 (H) 0.00 - 0.04 x10(3)/[facility] LABORATORY Specimen Anatomical Collection Method Collection Time Receive d Time (Source) Location / / Volume Laterality Blood 12/09/2021 6:18 AM 6:33 EDT AM EDT Resulting Agency Comment Spec In Lab Morgan BROWN HEMATOLOGY ORDERABLES Performing Organization Address City/State/ZIP Code Phon e Number [place] [id number] (ABNORMAL) Hemogram (12/09/2021 6:18 AM EDT) Analysis Performed At Patho logist Time Signature WBC 17.2 (H) 4.0 - 9.5 [facility] x10(3)/[facility] LABORATORY RBC 4.32 (L) 4.58 - [facility] 5.[address] [facility] x10(6)/[facility] LABORATORY Hemoglobin 12.6 (L) 13.7 - [facility] 16.5 g/dL [facility] Hematocrit 38.9 (L) 40.5 - [facility] 48.5 % [facility] MCV 90.0 82.9 - [facility] 93.1 fL [facility] MCH 29.2 27.5 - [facility] 32.1 pg [facility] MCHC 32.4 32.0 - [place] 35.7 g/dL [facility] Platelets 193 145 - 357 [facility] x10(3)/[facility] LABORATORY RDWSD 50.4 (H) 36.0 - [facility] SU 45.0 [facility] LABORATORY RDWCV 15.2 (H) 11.4 - [facility] 13.8 % [facility] MPV 9.5 7.6 - 12.9 [facility] LABORATORY nRBC % Auto 0.0 % [facility] nRBC Abs Auto 0.000 0.000 - [facility] SU [address] [facility] x10(3)/[facility] LABORATORY Specimen Anatomical Collection Method Collection Time Receive d Time (Source) Location / / Volume Laterality Blood 12/09/2021 6:18 AM 6:33 EDT AM EDT Resulting Agency Comment Spec In Lab Morgan BROWN HEMATOLOGY ORDERABLES Performing Organization Address City/State/[place] [address] Lipid Panel (Reflex Direct LDL) (12/09/2021 6:18 AM EDT) P athologist Signature Chol, Total 105 mg/dL [facility] Comment: Lower Risk: <200 mg/dL Average Risk: 200-239 mg/dL Higher Risk: >ia=167 mg/dL Triglycerides 133 mg/dL [facility] Comment: Average Risk/Lower Risk: <150 mg/dL Borderline High Risk: 150-199 mg/dL High Risk: 200-499 mg/dL Very High Risk: >xv=254 mg/dL HDL 42 mg/dL [facility] Comment: Males: ?? Higher Risk: <40 mg/dL Females: ?? Higher Risk: <50 mg/dL LDL Cholesterol 36 mg/dL [facility] Comment: Lowest Risk: <100 mg/dL Lower Risk: 100-129 mg/dL Borderline High Risk: 130-159 mg/dL High Risk: 160-189 mg/dL Very High Risk: >no=722 mg/dL Chol/HDL Ratio 2.5 ratio [facility] Lipid Interpretation See Note [facility] Comment: Lipid management should be guided by a p atient? s ASCVD risk, goals and preferences. ACC/AHA Guidelines recommend high intens ity statin if clinical ASCVD or LDL greater than or equal to 190 mg/dL. http://CompareNetworks.com/HWC-ITO-Gkbytuyfo Adults aged 40-75 with LDL 70-189 mg/dL should have their 10 year ASCVD risk estimated with the ACC/AHA ASCVD risk es timator http://tools.acc.org/RZGGX-Mcuu-Bwckqowu r/ Statin should be discussed if risk [...] Organization Address City/State/[place] [address] TSH (12/09/2021 6:18 AM EDT) P athologist Signature TSH 1.60 0.27 - 4.20 [facility] mcIU/mL [facility] Comment: Reference Interval (mcIU/mL): Females: ??First Trimester: 0.23-3.88 ??Second Trimester: 0.22-3.90 ??Third Trimester: 0.44-4.66 Specimen Anatomical Collection Method Collection Time Receive d Time (Source) Location / / Volume Laterality Blood 12/09/2021 6:18 AM 2 6:33 EDT AM EDT Resulting Agency Comment Spec In Lab Iker Cuevas MD CHEMISTRY ORDERABLES Performing Organization Address City/State/[place] [address] Hepatic Function Panel (12/09/2021 6:18 AM EDT) athologist Signature Total Protein 7.3 6.1 - 8.0 [facility] g/dL [facility] Albumin 4.2 3.2 - 5.2 [place] [facility] g/dL [facility] AST 25 0 - 39 [place] [facility] unit/L [facility] ALT 15 0 - 55 [place] unit/L [facility] Alk Phos 75 40 - 130 [facility] SU unit/L [facility] Total 1.1 0.2 - 1.3 [place] [facility] Bilirubin mg/dL [facility] Bili, Direct 0.2 0.0 - 0.3 [facility] SU mg/dL [facility] Specimen Anatomical Collection Method Collection Time Receive d Time (Source) Location / / Volume Laterality Blood 12/09/2021 6:18 AM 6:33 EDT AM EDT Resulting Agency Comment Spec In Lab Iker Cuevas MD CHEMISTRY ORDERABLES Performing Organization Address City/[facility]/ZIP Code Phon e Number [address] (ABNORMAL) BMP w/fasting Glucose (12/09/2021 6:18 AM EDT) athologist Signature Glucose 235 (H) 65 - 99 [place] Fasting mg/dL [facility] Comment: ?Fasting* Glucose Interpretive [...] of Diabetes Mellitus, Position Statement from the [place] [employer]. ??Diabete s Care, Volume 33, Supplement 1, Jul 2009 BUN 49 (H) 10 - 20 mg/dL [facility] Creatinine 1.33 0.80 - 1.50 mg/dL [facility] [...] City/State/ZIP Code Phon e Number [place] [id number] Magnesium (12/09/2021 6:18 AM EDT) athologist Signature Magnesium 0.81 0.69 - 1.07 [place] [facility] mmol/L [facility] Specimen Anatomical Collection Method Collection Time Receive d Time (Source) Location / / Volume Laterality Blood 12/09/2021 6:18 AM 6:33 EDT AM EDT Resulting Agency Comment Spec In Lab Iker Cuevas MD CHEMISTRY ORDERABLES Performing Organization Address City/State/[place] [address] (ABNORMAL) Troponin (12/09/2021 6:18 AM EDT) athologist Signature Troponin-T 1.13 (H) 0.00 - [place] 0.00 ng/mL [facility] Comment: The 99th percentile [...] additional sample may be indicated. Reference: Third [place] Definition of Myocardial Infarction. Journal of the [place] [employer] 2012;60:1581-98 Specimen Anatomical Collection Method Collection Time Receive d Time (Source) Location / / Volume Laterality Blood 12/09/2021 6:18 AM 2 6:33 EDT AM EDT Resulting Agency Comment Spec In Lab Iker Cuevas MD CHEMISTRY ORDERABLES Performing Organization Address City/State/ZIP [place] [address] XR Chest One View [...] who have questions please contact the health customer care consultant that requested your imaging first. ? [...] ho have questions please contact the health customer care consultant that requested your imaging first. Amber Sanches MD IMG DX ORDERABLES (ABNORMAL) BLOOD GAS 2 ARTERIAL (12/09/2021 5:14 AM EDT) Analysis Performed At Patho logist Time Signature pH Art 7.43 7.35 - [facility] 7.45 [facility] pCO2 Art 36 35 - 45 [facility] mmHg [facility] pO2 Art 67 (L) 85 - 104 [facility] mmHg [facility] HCO3 Art 23.4 20.0 - [facility] 26.[address] [facility] mmol/L [facility] BE Art -0.9 -3.0 - 3.0 [facility] mmol/L [facility] Hgb Blood Gas 13.2 (L) 13.7 - [facility] 16.5 g/dL [facility] O2HB Art 91.3 (L) 94.0 - [facility] 97.0 % [facility] COHB Art 0.4 % [...] Bld 223 (H) 65 - 199 mg/dL [facility] Comment: Diabetes: >=200 mg/dL plus symp toms. Lactate WB 2.7 (H) 0.5 - 2.2 mmol/L [facility] FIO2 Art 35 % [facility]ORY Flow Art 8.0 LPM [facility] PF Ratio Art 191 [facility] LAB[facility]ORY Specimen Anatomical Collection Method Collection Time Receive d Time (Source) Location / / Volume Laterality Blood 12/09/2021 5:14 AM 2 5:14 EDT AM EDT Iker Cuevas MD CHEMISTRY ORDERABLES Performing Organization Address City/State/[place] [address] POCT Glucose (12/09/2021 4:46 AM EDT) P athologist Signature POC Glucose 198 65 - 199 [facility] mg/dL [facility] Comment: Supplemental ranges: <140 mg/dL before meals <180 mg/dL all other times of the day Specimen Anatomical Collection Method Collection Time Receive d Time (Source) Location / / Volume Laterality Blood 12/09/2021 4:46 AM 2 4:46 EDT AM EDT Iker Cuevas MD POINT OF CARE TEST ORDERABLE S Performing Organization Address City/State/[place] [address] (ABNORMAL) POCT Glucose (12/09/2021 3:01 AM EDT) athologist Signature POC Glucose 225 (H) 65 - 199 [facility] SU mg/dL [facility] Comment: Supplemental ranges: <140 mg/dL before meals <180 mg/dL all other times of the day Specimen Anatomical Collection Method Collection Time Receive d Time (Source) Location / / Volume Laterality Blood 12/09/2021 3:01 AM 3:01 EDT AM EDT Iker Cuevas MD POINT OF CARE TEST ORDERABLE S Performing Organization Address City/State/[place] [address] (ABNORMAL) POCT Glucose (12/08/2021 10:55 PM EDT) athologist Signature POC Glucose 327 (H) 65 - 199 [facility] Comment: Supplemental ranges: <140 mg/dL before meals <180 mg/dL all other times of the day Specimen Anatomical Collection Method Collection Time Receive d Time (Source) Location / / Volume Laterality Blood 12/08/2021 10:55 12/08/2021 PM EDT 10:55 PM EDT Iker Cuevas MD POINT OF CARE TEST ORDERABLE S Performing Organization Address City/State/[place] [address] Heparin (unfractionated) Level (12/08/2021 10:03 PM EDT) athologist Signature Heparin UFH 0.18 IU/mL [facility] LABORATORY Comment: Heparin (anti-Xa) levels [...] City/State/ZIP Code Phon e Number [place] [id number] Drive (ABNORMAL) Troponin (12/08/2021 10:03 PM EDT) P athologist Signature Troponin-T 0.92 (H) 0.00 - [facility] 0.00 ng/mL [facility] Comment: The 99th percentile [...] additional sample may be indicated. Reference: [place] Definition of Myocardial Infarction. Journal of the [place] [employer] 2012;60:1581-98 Specimen Anatomical Collection Method Collection Time Receive d Time (Source) Location / / Volume Laterality Blood 12/08/2021 10:03 12/08/2021 PM EDT 10:31 PM EDT Resulting Agency Comment Spec In Lab Iker Cuevas MD CHEMISTRY ORDERABLES Performing Organization Address City/[facility]/[place] [address] (ABNORMAL) POCT Glucose (12/08/2021 8:22 PM EDT) P athologist Signature POC Glucose 429 (H) 65 - 199 [facility] SU mg/dL [facility] Comment: Supplemental ranges: <140 mg/dL before meals <180 mg/dL all other times of the day Specimen Anatomical Collection Method Collection Time Receive d Time (Source) Location / / Volume Laterality Blood 12/08/2021 8:22 PM 2 8:22 EDT PM EDT Iker Cuevas MD POINT OF CARE TEST ORDERABLE S Performing Organization Address City/[facility]/[place] [address] (ABNORMAL) POCT Glucose (12/08/2021 7:06 PM EDT) athologist Signature POC Glucose 442 (H) 65 - 199 [facility] SU mg/dL [facility] Comment: Supplemental ranges: <140 mg/dL before meals <180 mg/dL all other times of the day Specimen Anatomical Collection Method Collection Time Receive d Time (Source) Location / / Volume Laterality Blood 12/08/2021 7:06 PM 2 7:06 EDT PM EDT Iker Cuevas MD POINT OF CARE TEST ORDERABLE S Performing Organization Address City/State/[place] [address] Magnesium (12/08/2021 6:02 PM EDT) P athologist Signature Magnesium 0.86 0.69 - 1.07 [facility]/L [facility] Specimen Anatomical Collection Method Collection Time Receive d Time (Source) Location / / Volume Laterality Blood 12/08/2021 6:02 PM 2 6:36 EDT PM EDT Resulting Agency Comment Spec In Lab Iker Cuevas MD CHEMISTRY ORDERABLES Performing Organization Address City/State/[place] [address] (ABNORMAL) Basic Metabolic Panel (non-fasting) (12/08/2021 6:02 PM EDT) P athologist Signature Glucose Lvl 392 (H) 65 - 199 [facility] mg/dL [facility] Comment: Diabetes: >=200 mg/dL plus symp toms BUN 41 (H) 10 - 20 mg/dL [facility]ORY Creatinine 1.44 0.80 - 1.50 mg/dL [facility] LABORATORY Sodium 138 135 - [...] Organization Address City/State/[place] [address] (ABNORMAL) Differential, Automated (12/08/2021 6:02 PM EDT) [facility] gist Method Time Signature Neutrophils % 89.5 % [facility]ORATORY Neutr Abs (ANC) 13.97 (H) 1.70 - [facility] [address] [facility] x10(3)/[facility] LABORATORY Lymphocytes % 3.7 % [facility]ORATORY Lymphocytes Abs 0.6 (L) 0.9 - 3.2 [facility] x10(3)/[facility] LABORATORY Monocytes % 6.1 % [facility]OR[facility]ORY Monocyte Abs 1.0 (H) 0.3 - 0.9 [facility] x10(3)/[facility] LABORATORY Eosinophils % 0.0 % [facility]ORY Eosinophils Abs 0.0 0.0 - 0.4 [facility] x10(3)[facility] LABORATORY Basophils % 0.2 % [facility]OR[facility]ORY Basophils Abs 0.0 0.0 - 0.1 [facility] x10(3)/[facility] LABORATORY Immature Gran % 0.50 [...] Organization Address City/State/[place] [address] (ABNORMAL) Hemogram (12/08/2021 6:02 PM EDT) Analysis Performed At Patho logist Time Signature WBC 15.6 (H) 4.0 - 9.5 [facility] LABORATORY RBC 4.05 (L) 4.58 - [place] [facility] [address] [facility] x10(6)/[facility] LABORATORY Hemoglobin 11.8 (L) 13.7 - [facility] 16.5 g/dL [facility] Hematocrit 35.8 (L) 40.5 - [facility] 48.5 % [facility] MCV 88.4 82.9 - [facility] 93.1 [facility] LABORATORY MCH 29.1 27.5 - [facility] 32.1 pg [facility] MCHC 33.0 32.0 - [facility] 35.7 g/dL [facility] Platelets 178 145 - 357 [facility] x10(3)/[facility] LABORATORY RDWSD 49.3 (H) 36.0 - [facility] 45.0 [facility] LABORATORY RDWCV 15.1 (H) 11.4 - [facility] SU 13.8 % [facility]ORATORY MPV 10.4 7.6 - 12.9 [facility] LABORATORY nRBC % Auto 0.0 % [facility] LABORATORY nRBC Abs Auto 0.000 0.000 - [facility] SU [address] [facility] x10(3)/[facility] LABORATORY Specimen Anatomical Collection Method Collection Time Receive d Time (Source) Location / / Volume Laterality Blood 12/08/2021 6:02 PM 2 6:36 EDT PM EDT Resulting Agency Comment Spec In Lab Morgan BROWN HEMATOLOGY ORDERABLES Performing Organization Address City/State/ZIP [place] [address] (ABNORMAL) Troponin (12/08/2021 6:02 PM EDT) athologist Signature Troponin-T 0.89 (H) 0.00 - [place] [facility] 0.00 ng/mL [facility] Comment: The 99th percentile [...] additional sample may be indicated. Reference: [place] Definition of Myocardial Infarction. Journal of the [place] [employer] 2012;60:1581-98 Specimen Anatomical Collection Method Collection Time Receive d Time (Source) Location / / Volume Laterality Blood 12/08/2021 6:02 PM 6:36 EDT PM EDT Resulting Agency Comment Spec In Lab Iker Cuevas MD CHEMISTRY ORDERABLES Performing Organization Address City/State/[place] [address] COVID-19 PCR (12/08/2021 5:00 [...] using the Simplexa COVID-19 Direct Assay by WayConnectedjoi marcum as authorized by the FDA issued [...] Department of Pathology and Laboratory Medicine at [facility], certified under the Clinical [...] fact sheets at the following FDA website: https://www.fda.gov/medical-devices/gyvqhoywnih-askuozt-6947-jqmjh-66-vmplsgksx- wnw-exfgilchetiqyb-uicqigw-devices/yrpzv-xhalxkjvcgk-gaez SARS-CoV-2 Source SENIOR INFORMATION SYSTEMS ARCHITECT Swab [facility] Specimen (Source) Anatomical Collection Method Collection Time Re ceived Time Location / / Volume Laterality Nasopharyngeal Swab 12/08/2021 5:00 12/08 PM EDT 6:03 PM EDT Comment: Symptoms->Surveillance Resulting Agency Comment Spec In Lab Iker Cuevas MD MICROBIOLOGY - GENERAL ORDER ROBSON Performing Organization Address City/[facility]/[place] [address] EKG 12 Lead (12/08/2021 4:40 PM EDT) Component Value Ref Range Test Analysis Performed Pathologis t Method Time At Signature Ventricular rate 78 BPM MUSE SYSTEM Atrial Rate 78 BPM MUSE SYSTEM P-R Interval 152 ms MUSE SYSTEM QRS Duration 96 ms MUSE SYSTEM Q-T Interval 396 ms MUSE SYSTEM QTC Calculated 451 ms MUSE SYSTEM (Bezet) Calculated P Tiger 44 degrees MUSE SYSTEM Calculated R Tiger -31 degrees MUSE SYSTEM Calculated T Tiger 124 degrees MUSE SYSTEM INTERPRETATION Normal sinus [...] Cuevas MD ECG ORDERABLES Performing Organization Address City/[facility]/ZIP Code Phon e Number MUSE SYSTEM (ABNORMAL) POCT Glucose (12/08/2021 4:34 PM EDT) P athologist Signature POC Glucose 400 (H) 65 - 199 [facility] mg/dL [facility] Comment: Supplemental ranges: <140 mg/dL before meals <180 mg/dL all other times of the day Specimen Anatomical Collection Method Collection Time Receive d Time (Source) Location / / Volume Laterality Blood 12/08/2021 4:34 PM 2 4:34 EDT PM EDT Iker Cuevas MD POINT OF CARE TEST ORDERABLE S Performing Organization Address City/State/[place] [address] documented in this encounter [...] Coronary atherosclerosis of unspecified type of vessel, [place] or graft Cardiomyopathy, ischemic Other specified forms [...] Admin Adt) atorvastatin (Lipitor) tablet 40 mg 08 (SEP Hold - P rovider: Admin Adt - Reason: Transfer to a Procedural area)1230 (SEP Unhold - Provider: Admin Adt)1744 (Given - Provider: Emma Garcia RN) 1717 (Given - Provider: Emma Garcia RN) 40 mg, Oral, EVERY EVENING, First dose o n 12/08/21 at 1730, Until Discontinued, Routine clopidogreL (Plavix) tablet 75 mg (CANCELED) 0737 (Giv en - Provider: Emma Garcia RN)08 (SEP Hold - Provider: Admin Adt - [...] Garcia, VAMSI) 0900 (Hold - Provider: Lilliana Esteban RN [...] - Reason: Transfer to a Procedural area)1230 ([facility] Unhold - Provider: Admin Adt) [...] - Reason: Transfer to a Procedural area)1230 ([facility] Unhold - Provider: Admin Adt) [...] (Intra-Procedure), Routine niCARdipine (Cardene) (100 mcg/mL) dilution (C++ PROFESSOR) (CANCELED) 1030 (Given - Provider: Vitaliy [...] episode. & nbsp; For persistent hypoglycemia, con color straining bag washer longer-acting treatment for the duration of the [...]
Routine documented in this encounter Care Teams Web Development Manager Relationship Specialty Start Date End Date Lovely Vicente MD PCP - General 04/16/[address] [place] [address] [address] [place] [address] documented as of this encounter
--- OUTSIDE RECORDS SUMMARY | 2022-03-09 15:24 | XMS_ITS | Encounter Summary ---
:1945 [place] [address] Care Team Providers Name Role Phone Lovely Vicente MD Primary Care Provider Encounter Details Date Type Department Care Team Description 03/20/2021 Telephone Neurology at [facility] Hugo Gaston MD [facility] [place] [address] [place] [address] [phone] (Wo rk) Social History Tobacco Use Types [...] - 03/20/2021 6:03 PM EDT Call from [facility]. 76 M with h/o DM. CABG, [...] Gaston MD Department of Neurology Pager # [phone] documented in this encounter Plan of Treatment Upcoming Encounters Date Type Specialty Care Team Description 03/26/2022 Office Visit Cardiology Vitaliy Noblse MD [facility] [address] [place], [place] [address] (Wo rk) 06/10/2022 Office Visit Dermatology Laura Scherer MD [facility] DR [address] [place], [place] [address] (Wo rk) documented as of this encounter Visit Diagnoses Not on filedocumented in this encounter Care Teams Vegetable Washer Relationship Specialty Start Date End Date Lovely Vicente MD PCP - General 04/16/[address] [place] [address] documented as of this encounter
--- OUTSIDE RECORDS SUMMARY | 2022-03-09 15:24 | XMS_ITS | Encounter Summary ---
:1945 Author Organization [facility] [place] [address] Care Team Providers Name Role Phone Lovely Vicente MD Primary Care Provider Encounter Details Date Type Department Care Team Description 12/07/2021 Ancillary Procedure Radiology Library at Lovely Candelaria MD [facility] [address] [phone] (Wo lissa) [phone] Social History Tobacco Use Types Packs/Day Years [...] [facility] ER [address] [place], [place] [address] (Wo rk) 06/10/2022 Office Visit Dermatology Laura Scherer MD [facility] ER DR TE[address] [place], [place] [address] (Wo rk) documented as of [...] Organization Address City/State/ZIP Code Phon e Number [place], [place] documented in this encounter Visit Diagnoses Not on filedocumented in this encounter Care Teams Cotton Tier Relationship Specialty Start Date End Date Lovely Vicente MD PCP - General 04/16/[address] [place] [address] documented as of this encounter
--- OUTSIDE RECORDS SUMMARY | 2022-03-09 15:24 | XMS_ITS | Encounter Summary ---
:1945 Author Organization [facility] [place] [address] Care Team Providers Name Role Phone Lovely Vicente MD Primary Care Provider Encounter Details Date Type Department Care Team Description 07/28/2019 Laboratory Appointment Lab 3L [facility] systolic [facility] [place] [id number] Social History Tobacco Use Types Packs/Day Years [...] MD [facility] CARDIOLOGY [place], [place] [address] (Wo rk) 06/10/2022 Office Visit Dermatology Laura Scherer MD [facility] [address] [place], [place] [address] (Wo rk) documented [...] athologist Signature ProBNP 647 (H) <=125 pg/mL [facility] Specimen Anatomical Collection Method Collection Time Receive d Time (Source) Location / / Volume Laterality Blood specimen 07/28/2019 8:36 AM 020 8:46 (specimen) EST AM EST Resulting Agency Comment Spec In Lab Danette Maxwell APRN CHEMISTRY ORDERABLES Performing Organization Address City/State/[place] [address] (ABNORMAL) Basic Metabolic Panel (non-fasting) (07/28/2019 8:36 AM EST) athologist Signature Glucose Lvl 153 65 - 199 [facility] mg/dL [facility] Comment: Diabetes: >=200 mg/dL plus symp toms BUN 22 (H) 10 - 20 mg/dL [facility] Calcium 9.3 8.5 - 10.5 mg/dL [facility] Estimated GFR 70 >=60 mL/min/1.73 m?? [facility] Comment: The eGFR was calculated using the CKD-EP I equation. As with all creatinine based estimates of kidney function, eGFR values calculated with the CKD-EPI equation are not accurate in patients wi th acute kidney failure, extremes of body mass or the acutely ill. http://Sharegate/[facility] YUKONnkf eGFR 81 >=60 mL/min/1.73 m?? [facility] Comment: The eGFR was calculated using the CKD-EP I equation. As with all creatinine based estimates of kidney function, eGFR values calculated with the CKD-EPI equation are not accurate in patients wi th acute kidney failure, extremes of body mass or the acutely ill. http://Sharegate/[facility] YUKONnkf Specimen Anatomical Collection Method Collection Time Receive d Time (Source) Location / / Volume Laterality Blood specimen 07/28/2019 8:36 AM 020 8:46 (specimen) EST AM EST Resulting Agency Comment Spec In Lab Danette Maxwell APRN CHEMISTRY ORDERABLES Performing Organization Address City/State/ZIP Code Phon e Number [place] [id number] documented in this encounter Visit Diagnoses Diagnosis Chronic systolic heart failure documented in this encounter Care Teams Job Specification Writer Relationship Specialty Start Date End Date Lovely Vicente MD PCP - General 04/16/[address] [place] [address] documented as of this encounter
--- OUTSIDE RECORDS SUMMARY | 2022-03-09 15:24 | XMS_ITS | Encounter Summary ---
:1945 Author Organization [facility] [place] [address] Care Team Providers Name Role Phone Lovely Vicente MD Primary Care Provider Encounter Details Date Type Department Care Team Description 12/07/2021 External [place] [address] Social History Tobacco Use Types Packs/Day [...] Nobles MD [facility] DR [address] [place], [place] [address] (Wo rk) 06/10/2022 Office Visit Dermatology Laura Scherer MD [facility] DR [address] [place], [place] [address] (Wo rk) documented as of [...] on filedocumented in this encounter Care Teams Scooter Mechanic Relationship Specialty Start Date End Date Lovely Vicente MD PCP - General 04/16/[address] [place] [address] documented as of this encounter
--- OUTSIDE RECORDS SUMMARY | 2022-03-09 15:24 | XMS_ITS | Encounter Summary ---
:1945 Author Organization [facility] Address [facility] [place] [address] Care Team Providers Name Role Phone Lovely Vicente MD Primary Care Provider Encounter Details Date Type Department Care Team Description 01/02/2020 Office Visit Dermatology at Rigoberto Forman ctinic keratoses; Abdelrahman HOOPER MD History of melanoma; [address] [facility] History of dysplastic nevus; [place] [address] Multiple benign nevi; [phone] [facility] Seborrheic yossi [place]; RD-DERMATOLGY Skin exam for malignant neoplasm [place], [place] [address] Social History Tobacco Use Types [...] encounter. Rigoberto Garcia MD Section of Dermatology [facility] documented in this encounter Plan of Treatment Upcoming Encounters Date Type Specialty Care Team Description 03/26/2022 Office Visit Cardiology Vitaliy Nobles MD [facility] [address] [place], [place] [address] (Wo rk) 06/10/2022 Office Visit Dermatology Laura Shcerer MD [facility] [address] [place], [place] [address] (Wo rk) documented as of [...] documented in this encounter Care Teams Manager Pipeline Relationship Specialty Start Date End Date Lovely Vicente MD PCP - General 04/16/[address] [place] [address] documented as of this encounter
--- OUTSIDE RECORDS SUMMARY | 2022-03-09 15:24 | XMS_ITS | Encounter Summary ---
:1945 Author Organization [facility] [place] [address] Care Team Providers Name Role Phone Lovely Vicente MD Primary Care Provider Encounter Details Date Type Department Care Team Description 02/19/2020 Telephone Dermatology at [facility] Ariana Wilder LPN [address] [place] [address] Social History Tobacco Use Types Packs/Day [...] Vitaliy Nobles MD [facility] CARDIOLOGY [place], [place] [address] (Wo rk) 06/10/2022 Office Visit Dermatology Laura Scherer MD [facility] DR [address]MAT [facility] [place], [place] [address] (Wo rk) documented as of this encounter Visit Diagnoses Not on filedocumented in this encounter Care Teams Mva Reactor Operator Head Relationship Specialty Start Date End Date Lovely Vicente MD PCP - General 04/16/[address] [place] [address] documented as of this encounter
--- OUTSIDE RECORDS SUMMARY | 2022-03-09 15:24 | XMS_ITS | Encounter Summary ---
:1945 Author Organization [facility] [place] [address] Care Team Providers Name Role Phone Lovely Vicente MD Primary Care Provider Encounter Details Date Type Department Care Team Description 03/20/2021 Ancillary Procedure Radiology Library [place] [address] [place] [address] [phone] Social History Tobacco Use Types Packs/Day Years [...] Vitaliy Nobles MD [facility] DR T[address] [place], [place] [address] (Wo rk) 06/10/2022 Office Visit Dermatology Laura Scherer MD [facility] DR [address] [place], [place] [address] (Wo rk) documented as of [...] Organization Address City/State/ZIP Code Phon e Number [place], [place] documented in this encounter Visit Diagnoses Not on filedocumented in this encounter Care Teams Paralegal Instructor Relationship Specialty Start Date End Date Lovely Vicente MD PCP - General 04/16/[address] [place] [address] documented as of this encounter
--- OUTSIDE RECORDS SUMMARY | 2022-03-09 15:24 | XMS_ITS | Encounter Summary ---
:1945 [place] [address] Care Team Providers Name Role Phone Lovely Vicente MD Primary Care Provider Reason for Visit Reason Comments Skin Cancer Examination Encounter Details Date Type Department Care Team Description 03/20/2021 Office Visit Dermatology at [facility] Brennen Rene MD History of melanoma; [facility] History of dysplastic nevus; [address] Multiple benign nevi; [place] [address] [facility] SK (seborrheic keratosis); [phone] [address]MATOLOGY [place] (actinic keratosis) [place], [place] [address] Social History Tobacco Use Types [...] no SOCIAL HISTORY 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 Last visit at [facility] Derm: 01/02/2020 Medications: Reviewed in eD-H [...] FSE; history of Melanoma []Note routed to medical secretary [x]Recall has been placed in scheduling system []Appointment scheduled at checkout Scribe attestation: Yoana Pang LPN has performed the documentation for this encounter in the presence of and acting as a scribe for LAURA RENE MD I performed the above scribed service and agree with the accuracy of the documentation in this encounter. Reviewed and signed by: LAURA RENE MD Dermatology [facility] documented in this encounter Plan of Treatment Upcoming Encounters Date Type Specialty Care Team Description 03/26/2022 Office Visit Cardiology Vitaliy Nobles MD [facility] ER DR [address] [place], [place] [address] (Wo rk) 06/10/2022 Office Visit Dermatology Laura Rene MD [facility] DR TEJA GR-DERMAT [facility] [place] [place], [place] [address] (Wo rk) documented as of this encounter Visit Diagnoses Diagnosis History of melanoma Personal history of malignant melanoma o f skin History of dysplastic nevus Personal history of diseases of skin and subcutaneous tissue Multiple benign nevi Benign neoplasm of skin, site unspecifie d [place] (seborrheic keratosis) Other seborrheic keratosis [place] (actinic keratosis) Actinic keratosis documented in this encounter Care Teams Motor Racer Relationship Specialty Start Date End Date Lovely Vicente MD PCP - General 04/16/[address] [place] [address] documented as of this encounter
--- OUTSIDE RECORDS SUMMARY | 2022-03-09 15:24 | XMS_ITS | Encounter Summary ---
:1945 Author Organization [place] [address] Care Team Providers Name Role Phone Lovely Vicente MD Primary Care Provider Reason for Visit Auth/Cert Specialty Diagnoses / Procedures Referred By Contact Refer red To Contact Diagnoses NSTEMI Procedures emerg ipi Referral ID Status Reason Start Date Expiration Date Visits Requ ested Visits Authorized [id number] 1 1 Encounter Details Date Type Department Care Team Description 12/10/2021 Surgery Vacuum Caster Asa Coulter MD CARDIAC CATHETERIZATION [facility] [place] [address] [place] [address] [phone] (Wo rk) Social History Tobacco Use Types [...] Don Fatima Patient Age: 76 y.o. Language: Belarusian Race: White Ethnicity: Not nor Admit date: [...] Peter PA-C Kelly LaFlamme PA-C Cardiovascular Medicine [phone] Discharge Diagnoses (Hospital Problems) and Secondary Diagnoses [...] 3.75 guiding catheter and a 3.5 Fr [place] [facility] [place] 20 Mhz using Manual pullback. Imaging was successful. Image quality was good. The ostial LCX showed moderate diffuse atherosclerotic plaque with scattered three quadrant calcification. Measurements were performed after pre-dilation. Post Intervention: The stent was well expanded and apposed. Intravascular Ultrasound was performed in the distal LM using a 7 Fr EBU 3.75 guiding catheter and a 3.5 Fr [place] [facility] [place] 20 Mhz using Manual pullback. Imaging was successful. Image quality was good. The distal LM showed moderate diffuse atherosclerotic plaque. Post Intervention: The stent was well expanded and apposed. Indication for Intervention: Coronary intervention was indicated for primary therapy for an acute myocardial infarction. The priority for the procedure was Urgent. The [facility] indication for the procedure was [...] may require modification of this regimen. Consult [facility] Interventional Cardiology [...] vascular congestion and cardiomegaly. ?? TTE from [facility] 12/08/21 ? Prior Cardiac Studies: TTE 07/28/2019 [...] prior thyroidectomy in 2012 who presented to [facility] with 1 week progressing breathlessness with patient [...] 03/2021 with Liz Poole PA-C. ?? At [facility], respiratory distress with hypoxia 86% on room [...] and diet drinks did not cause his AZ. This is what his thought was the [...] appointments: During 8am-5pm Wednesday through Wednesday call [phone] to speak with a nurse in the cardiology clinic All other times call [phone] and ask to speak to the spa host youth corrections officer. Return to work: One week Driving: No driving for 48 hours after catheterization. Follow up Appointments: PCP Lovely Vicente MD [phone] to see patient at the end of December for annual check up. Patient to see Dr. Lorenzana at 1120 am at December 19 for a post hospital check up. Underwriter Solicitation Director Dr. De Oliveira to see you in [facility]. Left a message for office to set a date and time. Please call [phone] Nobles to see the patient for a same day cath in 2-3 weeks from now. Office to call with a date and time. For questions please call [phone] Home oxygen therapy: N/A Arrangements for VNA/home care: none Future Appointments and Orders Future Orders Complete By Expires Basic Metabolic Panel (non-fasting) [LAB15 Custom] 12/19/2021 (Approximate) 12/12/2022 Process Instructions: INCLUDES: Calcium, BUN, Creat, GFR, Glucose, Lytes Scheduling Instructions: Comments: Questions: Referral to Cardiac Rehab [[id number] Custom] As directed Process Instructions: If no [...] appointments: During 8am-5pm Wednesday through Wednesday call [phone] to speak with a nurse in the cardiology clinic All other times call [phone] and ask to speak to the spa host youth corrections officer. Return to work: One week Driving: No driving for 48 hours after catheterization. Follow up Appointments: PCP Lovely Vicente MD [phone] to see patient at the end of December for annual check up. Patient to see Dr. Lorenzana at 1120 am at December 19 for a post hospital check up. Underwriter Solicitation Director Dr. De Oliveira to see you in [facility]. Left a message for office to set a date and time. Please call [phone] Nobles to see the patient for a same day cath in 2-3 weeks from now. Office to call with a date and time. For questions please call [phone] Home oxygen therapy: N/A Arrangements for VNA/home [...] Progress Note Patient Name: Don Fatima Service: MINING CONSULTANT / PA Responsible Attending: Ifeanyi Truong MD [...] was given Lasix 80mg IV x1 in bobcat driver/labor. Tolerated procedure well. Home today at 11 [...] CREATININE 1.72* 1.43 -- 1.39 Recent Labs 12/09/2118 AST 25 ALT 15 ALKPHOS 75 BILITOT 1.1 BILIDIR 0.2 Recent Labs 12/12/21 04512/11/218 12/10/21 1812 12/10/21 0425 CALCIUM 8.9 8.6 [...] pulmonary vascular congestion and cardiomegaly. TTE from [facility] 12/08/21 Prior Cardiac Studies: TTE 07/28/2019 SUMMARY: [...] with MD Janneth Neville PA 12/12/2021 Pager [phone] Associated attestation - Ifeanyi Truong MD - [...] ratio for each meal) Desirae Jett APRN [facility] Endocrinology Diabetes Management Pager [phone] 20 minutes of this 35 minute visit [...] Progress Note Patient Name: Don Fatima Service: MINING CONSULTANT / PA Responsible Attending: Iker Cuevas MD [...] + trop. Known CAD with hx of AZ and CABG. DM. MARIA VICTORIA.ICM. ??? ASHD [...] was given Lasix 80mg IV x1 in bobcat driver/labor. Tolerated procedure well. Review of Systems: Review [...] Intake/Output Summary (Last 24 hours) at 12/11/2021 0900 Last data filed at 12/11/2021 0508 Gross [...] Labs 12/11/21 042 INR 1.6 Recent Labs 12/11/21 0428 12/10/21 1946 12/10/21 1812 12/10/21424 NA 142 -- 138 140 K 4.0 4.2 Not Perf 3.9 CL 104 -- 100 104 CO2 23 -- 23 BUN 49* -- 50* 54* CREATININE 1.43 -- 1.39 1.52* Recent Labs 12/09/21 06 AST 25 ALT 15 ALKPHOS 75 BILITOT 1.1 BILIDIR 0.2 Recent Labs 12/11/21 0428 12/10/21 1812 12/10/21 0425 12/09/21 1930 12/09/21 0618 [...] pulmonary vascular congestion and cardiomegaly. TTE from [facility] 12/08/21 Prior Cardiac Studies: TTE 07/28/2019 SUMMARY: [...] Progress Note Patient Name: Don Fatima Service: MINING CONSULTANT / PA Responsible Attending: Iker Cuevas MD Reason for continued hospitalization: NSTEMI- s/p R/LHC- PCW 27, occluded SVGs s/p PCI to ostial LCX ADHF and hypoxia- IV diuresis Active Problems: Active Hospital Problems Diagnosis ??? Admitted with 2 days of sob, hypoxemia, and + trop. Known CAD with hx of AZ and CABG. DM. MARIA VICTORIA.ICM. ??? ASHD [...] was given Lasix 80mg IV x1 in bobcat driver/labor. Tolerated procedure well. Review of Systems: Review [...] 1.1 BILIDIR 0.2 Recent Labs 12/10/21 04212/09/21 1930 12/09/2118 12/08/21 1802 CALCIUM 8.0* 8.1* 8.8 8.6 [...] pulmonary vascular congestion and cardiomegaly. TTE from [facility] 12/08/21 Prior Cardiac Studies: TTE 07/28/2019 SUMMARY: [...] Discussed with MD Migdalia Peter PA-C Pager #[phone] 12/10/2021 Cardiology Attending Note I have seen [...] Progress Note Patient Name: Don Fatima Service: MINING CONSULTANT / PA Responsible Attending: Iker Cuevas MD Reason for continued hospitalization: NSTEMI- awaiting R/LHC ADHF and hypoxia- IV diuresis, R/LHC Active Problems: Active Hospital Problems Diagnosis ??? Admitted with 2 days of sob, hypoxemia, and + trop. Known CAD with hx of AZ and CABG. DM. MARIA VICTORIA.ICM. ??? ASHD [...] 8.8 8.6 MAGNESIUM 0.81 0.86 Recent Labs 12/09/2118 12/08/21 2203 12/08/21 1802 TROPONINT 1.13* 0.92* 0.89* Pertinent Radiographic/Diagnostic Results: CXR 12/09/21 IMPRESSION * Increased bilateral multifocal airspace opacities, more prominent and confluent on the right, may reflect asymmetric edema or multifocal infection. * Unchanged pulmonary vascular congestion and cardiomegaly. TTE from [facility] 12/08/21 Prior Cardiac Studies: TTE 07/28/2019 SUMMARY: [...] Discussed with MD Migdalia Peter PA-C Pager #[phone] 12/09/2021 Cardiology Attending Note I have seen and examined the patient. I agree with the findings above. Developed CHF early this am despite getting more iv lasix last evening. Feeling better now. INR > 2. Lungs still wet at base. Echo at [facility] showed EF 35% with mild mod MR [...] + trop. Known CAD with hx of AZ and CABG. DM. MARIA VICTORIA.ICM. ??? ASHD [...] prior thyroidectomy in 2012 who presented to [facility] with 1 week progressing breathlessness with patient [...] visit 03/2021 with Liz Poole PA-C. At [facility], respiratory distress with hypoxia 86% on room [...] [facility] MAIN OR ??? PRO AMPUTATION FOOT, TRANSMETATARSAL Right 08/09/2017 AMPUTATION, TRANSMETATARSAL (WRVU 12.71) performed by Yonathan Smith MD at [facility] MAIN OR ??? PRO CABG, ARTERIAL, SINGLE N/A 07/07/2017 @CABG, USING ARTERIAL GRAFT;SINGLE ARTERIAL GRAFT (WRVU 33.75) performed by Yuan Retana MD at [facility] MAIN OR ??? PRO CABG, ARTERY-VEIN, TWO N/A 07/07/2017 @CABG, TWO VENOUS GRAFTS & ARTERIAL GRAFT (WRVU 7.93) performed by Yuan Retana MD at [facility] MAIN OR ??? PRO COLONOSCOPY, REMV LESN, SNARE 01/16/2014 COLONOSCOPY, POLYPECTOMY, REMOVAL LESION BY SNARE performed by Nohemi Jaimes MD at [facility] ENDOSCOPY ??? PRO DRESSING CHANGE UNDER ANESTHESIA Right 08/11/2017 (MSURG) DRESSING CHANGE (FOR OTHER THAN IVAN) UNDER ANES. (WRVU 0.86) performed by Lamar Smith MD at [facility] MAIN OR ??? PRO ENDOSCOPY W/VIDEO-ASST VEIN HARVEST, CABG Right 07/07/2017 ENDOSCOPIC HARVEST VEIN(S) FOR CABG (WRVU 0.31) performed by Yuan Retana MD at [facility] MAIN OR ??? PRO THYROIDECTOMY 03/28/2013 THYROIDECTOMY, TOTAL OR COMPLETE performed by Manny Mcknight MD at [facility] MAIN OR Significant Family History: [...] as directed by PCP.As of 11/21/21- 5mg [place]//F/ and 7.5mg /.) Past Week at Unknown [...] (H) 65 - 199 mg/dL Labs at [facility] 12/08/2021-troponin I 8004 (UN L <60), 12/07- [...] Monitor for ADRs. Trend troponins. Admission EKG. [facility] 12/09; consented. TTE. Telemetry monitoring, daily weights, I/O routine labs. Fasting lipid panel and TSH in a.m. #HFrEF Continue metoprolol and losartan. Lisinopril caused cough. Furosemide 40mg IV x1. He states she usually wakes 200-210 pounds. TTE #Paroxysmal atrial fibrillation Currently in sinus rhythm. Holding warfarin which is followed by his PCP. Home dosing 5 Mg HAYS/T/W//SA and 7.5 mg M/. Heparin infusion as [...] code #Diet-carb control; n.p.o. after midnight for [facility] #DVT prophy- heparin infusion #GI prophy- PPI Discussed with MD Morgan Peter PA-C APP2 pager [phone] 12/08/2021 Cardiology Attending Note I have seen [...] is type 1 due to graft or hoh coronary stenosis vs acute injury from CHF. [...] Type: *No Product type* / Secondary Insurance: [employer] [place] Prescription Coverage: Yes This plan was [...] cath without complications. Migdalia Parker PA-C Pager #[phone] 12/10/2021 Initial Assessments - Nick Georges RN [...] COVID test: Lab Results Component Value Date [id number] Not Detected 12/08/2021 Past medical History: Past [...] 180 days) Any patient receiving care at [facility] must abide by [place] law. The hierarchy [...] (i) The agent with financial power of managing attorney or a conservator appointed in accordance [...] - standard, cane - straight Home Address: [address] [place] [address] [place] [address] Social & Family Supports: All names listed below confirmed with patient as current and correct Extended Emergency Contact Information Primary Emergency Contact: Kisha Fatima Address: [address] [place] [address] [place] [address] [facility] [place] Relation: Spouse Secondary Emergency Contact: Elba Swenson Address: [place], [place] [id number] [place] [address] Mobile Relation: Child Current Care Provided by: [...] *No Product type* / Secondary Insurance: [employer] Prescription Coverage: Yes Preferred Pharmacy: [facility] [place] [id number] [id number] - [place], [place] - [address] [place] [id number] [place] Status: Patient is a : unable to assess Primary Care Provider: Lovely Vicente MD [phone] Patient/Caregiver Goals of Treatment: Get out of here Potential Needs for Transition of Care: none Agency Referrals: none patient has used [employer] in the past Transportation: no concerns Transportation Anticipated: family or friend will provide Concerns to be Addressed: patient refuses services, discharge planning Assessment: Patient is admitted to [facility] Service pager [phone] for 76 y.o.??male??with h/o??CAD s/p 3vCABG (THOMPSON-LAD, [...] improvement before arrivaland??with normal saturations off oxygen.??On 517 AM experienced acute hypoxia and dyspnea with [...] status on current unit. Nick Georges RN deputy court, Office of Care Management Pager: [phone] Brief Op Note - Vitaliy Nobles MD - 12/10/2021 8:31 AM EDT Images from the original note were not included. [facility] [place] [address] CORONARY ANGIOGRAM AND PERCUTANEOUS CORONARY INTERVENTION REPORT Patient: Don Fatima : 1945 MR number: [id number] Date of Service: 12/10/2021 Cardiology Clinical Nurse Specialist: Vitaliy Nobles MD Fellow: Rancho Woods MD and Tobias Sun MD INDICATION: Don Veda Kushal??is a 76 y.o.??male??with h/o??CAD s/p 3vCABG (THOMPSON- [...] management and to provide a review of [facility] diabetes care. Diabetes History: Don Fatima has had diabetes for 10 years. He has been on insulin for the last several years andis managed by his PCP. Lives in [place], [place] with his . States that he [...] EC 40 mg Oral Daily Infusions: ??? [MAR Hold] nitroGLYcerin Stopped (12/10/21 0824) ??? [MAR [...] 5 gm carb ratio for each meal) skilled nursing diabetes care: Medications - Outpatient treatment regimen recommendations pending based on the hospital course. Monitoring - continue BG tid ac & hs Diet - low fat/low carb diet Exercise - weight-bearing exercise 30 min/day, as tolerated Thank you for allowing us to provide care for your patient Desirae Jett APRN Endocrinology Pager [phone] 70 minutes of this 80 minute visit [...] + trop. Known CAD with hx of AZ and CABG. DM. MARIA VICTORIA.ICM. ??? ASHD [...] to remain on Med/Surg floor, please page [phone] for any further questions or concerns. LANDON [...] for further details. STEPHANIE Rebolledo 12/08/2021 Pager [phone] documented in this encounter Plan of Treatment Upcoming Encounters Date Type Specialty Care Team Description 03/26/2022 Office Visit Cardiology Vitaliy Nobles MD [facility] [address] [place], [place] [address] (Wo rk) 06/10/2022 Office Visit Dermatology Laura Scherer MD [facility] [address] [place], [place] [address] (Wo rk) Scheduled Referrals Name [...] POC Glucose 215 (H) 65 - 199 [facility] mg/dL [facility] Comment: Supplemental ranges: <140 mg/dL before meals <180 mg/dL all other times of the day Specimen Anatomical Collection Method Collection Time Receive d Time (Source) Location / / Volume Laterality Blood 12/12/2021 7:42 AM 7:42 EDT AM EDT Ifeanyi Truong MD POINT OF CARE TEST ORDERABLE S Performing Organization Address City/State/[place] [address] (ABNORMAL) Differential, Automated (12/12/2021 4:51 AM EDT) P athologist Signature Neutrophils % 75.4 % [facility] Neutr Abs (ANC) 5.95 1.70 - [facility] 6.10 [facility] x10(3)/[facility] LABORATORY Lymphocytes % 12.2 % [facility] Lymphocytes Abs 1.0 0.9 - 3.2 [facility] x10(3)/[facility] LABORATORY Monocytes % 9.5 % [facility] Monocyte Abs 0.8 0.3 - 0.9 [facility] x10(3)/[facility] LABORATORY Eosinophils % 1.8 % [facility] Eosinophils Abs 0.1 0.0 - 0.4 [facility] x10(3)/[facility] LABORATORY Basophils % 0.5 % [facility] Basophils Abs 0.0 0.0 - 0.1 [place] [address]2670(3)/[facility] LABORATORY Immature Gran % 0.60 % [...] Organization Address City/State/[place] [address] (ABNORMAL) Hemogram (12/12/2021 4:51 AM EDT) Analysis Performed At Patho logist Time Signature WBC 7.9 4.0 - 9.5 [facility] x10(3)/[facility] LABORATORY RBC 4.19 (L) 4.58 - [facility] SU 5.54 [facility] x10(6)/[facility] LABORATORY Hemoglobin 12.1 (L) 13.7 - [facility] SU 16.5 g/dL [facility] Hematocrit 36.7 (L) 40.5 - [facility] 48.5 % [facility] MCV 87.6 82.9 - [facility] 93.1 [facility] LABORATORY MCH 28.9 27.5 - [facility] SU 32.1 pg [facility] MCHC 33.0 32.0 - [facility] 35.7 g/dL [facility] Platelets 231 145 - 357 [facility] x10(3)/[facility] LABORATORY RDWSD 47.2 (H) 36.0 - [facility] 45.0 [facility] LABORATORY RDWCV 14.6 (H) 11.4 - [facility] 13.8 % [facility] MPV 9.5 7.6 - 12.9 [facility] LABORATORY nRBC % Auto 0.0 % [facility] nRBC Abs Auto 0.000 0.000 - [facility] 0.000 [facility] x10(3)/[facility] LABORATORY Specimen Anatomical Collection Method Collection Time Receive d Time (Source) Location / / Volume Laterality Blood 12/12/2021 4:51 AM 5:06 EDT AM EDT Resulting Agency Comment Spec In Lab Bijan Sun MD HEMATOLOGY ORDERABLES Performing Organization Address City/State/[place] [address] (ABNORMAL) Prothrombin Time (12/12/2021 4:51 AM EDT) P athologist Signature PT 14.9 (H) 9.4 - 12.5 [facility] LABORATORY INR 1.3 [facility] Comment: [...] Organization Address City/State/[place] [address] (ABNORMAL) BMP w/fasting Glucose (12/12/2021 4:51 AM EDT) athologist Signature Glucose 152 (H) 65 - 99 [facility] Fasting mg/dL [facility] Comment: [...] BUN 52 (H) 10 - 20 mg/dL [facility] Creatinine 1.72 (H) 0.80 - [...] - 15 mmol/L [facility] Calcium 8.9 8.5 - 10.5 [...] Organization Address City/State/[place] [address] Magnesium (12/12/2021 4:51 AM EDT) P athologist Signature Magnesium 1.02 0.69 - 1.07 [facility] mmol/L [facility] Specimen Anatomical Collection Method Collection Time Receive d Time (Source) Location / / Volume Laterality Blood 12/12/2021 4:51 AM 2 5:06 EDT AM EDT Resulting Agency Comment Spec In Lab Iker Cuevas MD CHEMISTRY ORDERABLES Performing Organization Address City/State/[place] [address] POCT Glucose (12/12/2021 3:43 AM EDT) athologist Signature POC Glucose 138 65 - 199 [facility] Comment: Supplemental ranges: <140 mg/dL before meals <180 mg/dL all other times of the day Specimen Anatomical Collection Method Collection Time Receive d Time (Source) Location / / Volume Laterality Blood 12/12/2021 3:43 AM 2 3:43 EDT AM EDT Iker Cuevas MD POINT OF CARE TEST ORDERABLE S Performing Organization Address City/State/[place] [address] POCT Glucose (12/11/2021 11:44 PM EDT) athologist Signature POC Glucose 124 65 - 199 [facility] mg[facility]dL [facility] Comment: Supplemental ranges: <140 mg/dL before meals <180 mg/dL all other times of the day Specimen Anatomical Collection Method Collection Time Receive d Time (Source) Location / / Volume Laterality Blood 12/11/2021 11:44 12/11/2021 PM EDT 11:44 PM EDT Iker Cuevas MD POINT OF CARE TEST ORDERABLE S Performing Organization Address City/State/[place] [address] (ABNORMAL) POCT Glucose (12/11/2021 8:12 PM EDT) athologist Signature POC Glucose 200 (H) 65 - 199 [facility] SU mg/dL [facility] Comment: Supplemental ranges: <140 mg/dL before meals <180 mg/dL all other times of the day Specimen Anatomical Collection Method Collection Time Receive d Time (Source) Location / / Volume Laterality Blood 12/11/2021 8:12 PM 2 8:12 EDT PM EDT Iker Cuevas MD POINT OF CARE TEST ORDERABLE S Performing Organization Address City/State/[place] [address] (ABNORMAL) POCT Glucose (12/11/2021 6:50 PM EDT) athologist Signature POC Glucose 245 (H) 65 - 199 [facility] mg[facility]dL [facility] Comment: Supplemental ranges: <140 mg/dL before meals <180 mg/dL all other times of the day Specimen Anatomical Collection Method Collection Time Receive d Time (Source) Location / / Volume Laterality Blood 12/11/2021 6:50 PM 2 6:50 EDT PM EDT Iker Cuevas MD POINT OF CARE TEST ORDERABLE S Performing Organization Address City/State/[place] [address] (ABNORMAL) POCT Glucose (12/11/2021 4:00 PM EDT) athologist Signature POC Glucose 383 (H) 65 - 199 [facility]dL [facility] Comment: Supplemental ranges: <140 mg/dL before meals <180 mg/dL all other times of the day Specimen Anatomical Collection Method Collection Time Receive d Time (Source) Location / / Volume Laterality Blood 12/11/2021 4:00 PM 2 4:00 EDT PM EDT Iker Cuevas MD POINT OF CARE TEST ORDERABLE S Performing Organization Address City/State/[place] [address] (ABNORMAL) POCT Glucose (12/11/2021 12:01 PM EDT) athologist Signature POC Glucose 342 (H) 65 - 199 [facility]dL [facility] Comment: Supplemental ranges: <140 mg/dL before meals <180 mg/dL all other times of the day Specimen Anatomical Collection Method Collection Time Receive d Time (Source) Location / / Volume Laterality Blood 12/11/2021 12:01 12/11/2021 PM EDT 12:01 PM EDT Iker Cuevas MD POINT OF CARE TEST ORDERABLE S Performing Organization Address City/State/[place] [address] COVID-19 PCR (12/11/2021 10:13 AM EDT) [facility] Method Time Signature SARS-CoV-2 Not Detected Not Detected BARBARA RNA [facility] Comment: This result should [...] diagnosis of COVID-19 is performed using the [employer] S-CoV-2 Assay as authorized by the FDA Emergency Use Authorization (EUA). This EUA assay is intended for In-vitro Diagnostic (IVD) use with respiratory sp ecimens such as nasopharyngeal swabs collected from individuals during the ac aniak phase of infection. This assay is performed based on the instructions for use provided by [employer] and additional guidance provided by CDC and FDA. Testing is performed in the Clinical Genomics and Advanced Technolog y Laboratory within the Department of Pathology and Laboratory Medicine at [facility], certified under the Clinical Laboratory [...] clinical management guidance information are available at [facility] Coronavirus Disease 2019 (COVID-19) webpage under Information fo r Healthcare Professionals (https://www.cdc.gov/coronavirus/2019-nc ov/hcp/index.html) Additional information about this and ot her EUA tests can be found in provider and patient fact sheets at the following FDA website: https://www.fda.gov/medical-devices/axpoodkakat-vxedhyf-6198-qqyly-81-afyrevbrl- lxn-gluwvvxofkckci-jbrdqzr-devices/mlelm-qnothykwxga-pouu SARS-Cov-2 RNA Source [employer] Swab [facility] Specimen (Source) Anatomical Collection Method Collection Time Re ceived Time Location / / Volume Laterality Nasopharyngeal Swab 12/11/2021 10:13 0503/2022 AM EDT 11:16 AM EDT Comment: Symptoms->Surveillance Resulting Agency Comment Spec In Lab Iker Cuevas MD MICROBIOLOGY - GENERAL ORDER [place]BSON Performing Organization Address City/[facility]/[place] [address] POCT Glucose (12/11/2021 7:34 AM EDT) P athologist Signature POC Glucose 198 65 - 199 [facility] mg/dL [facility] Comment: Supplemental ranges: <140 mg/dL before meals <180 mg/dL all other times of the day Specimen Anatomical Collection Method Collection Time Receive d Time (Source) Location / / Volume Laterality Blood 12/11/2021 7:34 AM 7:34 EDT AM EDT Iker Cuevas MD POINT OF CARE TEST ORDERABLE S Performing Organization Address City/[facility]/[place] [address] (ABNORMAL) POCT Glucose (12/11/2021 5:07 AM EDT) P athologist Signature POC Glucose 208 (H) 65 - 199 [facility] mg/dL [facility] Comment: Supplemental ranges: <140 mg/dL before meals <180 mg/dL all other times of the day Specimen Anatomical Collection Method Collection Time Receive d Time (Source) Location / / Volume Laterality Blood 12/11/2021 5:07 AM 5:07 EDT AM EDT Iker Cuevas MD POINT OF CARE TEST ORDERABLE S Performing Organization Address City/State/[place] [address] (ABNORMAL) Differential, Automated (12/11/2021 4:28 AM EDT) Patholo gist Method Time Signature Neutrophils % 79.6 % [facility] Neutr Abs (ANC) 7.01 (H) 1.70 - [facility] 6.10 [facility] x10(3)/[facility] L LABORATORY Lymphocytes % 9.1 % [facility] Lymphocytes Abs 0.8 (L) 0.9 - 3.2 [facility] x10(3)/[facility] LABORATORY Monocytes % 9.2 % [facility] Monocyte Abs 0.8 0.3 - 0.9 [facility] x10(3)/[facility] LABORATORY Eosinophils % 1.3 % [facility] Eosinophils Abs 0.1 0.0 - 0.4 [facility] x10(3)/[facility] LABORATORY Basophils % 0.5 % [facility] Basophils Abs 0.0 0.0 - 0.1 [facility] x10(3)/[facility] LABORATORY Immature Gran % 0.30 % [facility] Comment: Immature granulocytes(IG's)percentage an d absolute count will include metamyelocytes, myelocytes, and promyelo cytes. Blood smears from CBCs yielding IG's will be scanned manually for concor dance. If this scan disagrees with the automated IG or if promyelocytes are not ed, a manual differential will be performed. Melisa Gran Abs 0.03 0.00 - 0.04 x10(3)/[facility] LAB[facility] Specimen Anatomical Collection Method Collection Time Receive d Time (Source) Location / / Volume Laterality Blood 12/11/2021 4:28 AM 2 4:37 EDT AM EDT Resulting Agency Comment Spec In Lab Bijan Sun MD HEMATOLOGY ORDERABLES Performing Organization Address City/State/[place] [address] (ABNORMAL) Hemogram (12/11/2021 4:28 AM EDT) Analysis Performed At Patho logist Time Signature WBC 8.8 4.0 - 9.5 [facility] x10(3)/[facility] LABORATORY RBC 4.15 (L) 4.58 [facility] 5.54 [facility] x10(6)/[facility] LABORATORY Hemoglobin 11.9 (L) 13.7 - [facility] 16.5 g/dL [facility] Hematocrit 36.9 (L) 40.5 - [facility] 48[facility]5 % [facility] MCV 88.9 82.9 - [facility] 93[facility]1 [facility] LABORATORY MCH 28.7 27.5 - [facility] 32.1 pg [facility] MCHC 32.2 32.0 - [facility] 35.7 g/dL [facility] Platelets 211 145 - 357 [facility] x10(3)/[facility] LABORATORY RDWSD 48.3 (H) 36.0 - [facility] 45.0 [facility] LABORATORY RDWCV 14.8 (H) 11.4 - [facility] 13.8 % [facility] LABORATORY MPV 9.6 7.6 - 12.9 [facility] LABORATORY nRBC % Auto 0.0 % [facility] nRBC Abs Auto 0.000 0.000 - [facility] 0.000 [facility] x10(3)/[facility] LABORATORY Specimen Anatomical Collection Method Collection Time Receive d Time (Source) Location / / Volume Laterality Blood 12/11/2021 4:28 AM 2 4:37 EDT AM EDT Resulting Agency Comment Spec In Lab Bijan Sun MD HEMATOLOGY ORDERABLES Performing Organization Address City/State/[place] [address] (ABNORMAL) Prothrombin Time (12/11/2021 4:28 AM EDT) P athologist Signature PT 17.7 (H) 9.4 - 12.5 [facility] LABORATORY INR 1.6 [facility]OR[facility] Comment: [...] Cuevas MD HEMATOLOGY ORDERABLES Performing Organization Address City/[facility]/[place] [address] (ABNORMAL) BMP w/fasting Glucose (12/11/2021 4:28 AM EDT) P athologist Signature Glucose 207 (H) 65 - 99 [facility] Fasting mg/dL [facility] Comment: [...] BUN 49 (H) 10 - 20 mg/dL [facility] Creatinine 1.43 0.80 - 1.50 [...] Anion Gap 15 5 - 15 mmol/L [facility] LABORATORY [...] Organization Address City/State/[place] [address] Magnesium (12/11/2021 4:28 AM EDT) athologist Signature Magnesium 1.04 0.69 - 1.07 [facility] mmol/L [facility] LABORATORY Specimen Anatomical Collection Method Collection Time Receive d Time (Source) Location / / Volume Laterality Blood 12/11/2021 4:28 AM 2 4:37 EDT AM EDT Resulting Agency Comment Spec In Lab Iker Cuevas MD CHEMISTRY ORDERABLES Performing Organization Address City/State/ZIP Code Phon e Number [address] POCT Glucose (12/11/2021 3:58 AM EDT) athologist Signature POC Glucose 189 65 - 199 [facility]dL [facility] Comment: Supplemental ranges: <140 mg/dL before meals <180 mg/dL all other times of the day Specimen Anatomical Collection Method Collection Time Receive d Time (Source) Location / / Volume Laterality Blood 12/11/2021 3:58 AM 2 3:58 EDT AM EDT Iker Cuevas MD POINT OF CARE TEST ORDERABLE S Performing Organization Address City/State/[place] [address] (ABNORMAL) POCT Glucose (12/10/2021 11:45 PM EDT) athologist Signature POC Glucose 205 (H) 65 - 199 [facility]dL [facility] Comment: Supplemental ranges: <140 mg/dL before meals <180 mg/dL all other times of the day Specimen Anatomical Collection Method Collection Time Receive d Time (Source) Location / / Volume Laterality Blood 12/10/2021 11:45 12/10/2021 PM EDT 11:45 PM EDT Iker Cuevas MD POINT OF CARE TEST ORDERABLE S Performing Organization Address City/State/[place] [address] (ABNORMAL) POCT Glucose (12/10/2021 7:54 PM EDT) athologist Signature POC Glucose 225 (H) 65 - 199 [facility] mg/dL [facility] Comment: Supplemental ranges: <140 mg/dL before meals <180 mg/dL all other times of the day Specimen Anatomical Collection Method Collection Time Receive d Time (Source) Location / / Volume Laterality Blood 12/10/2021 7:54 PM 2 7:54 EDT PM EDT Iker Cuevas MD POINT OF CARE TEST ORDERABLE S Performing Organization Address City/[facility]/ZIP [facility] Phon e Number [address] Potassium (12/10/2021 7:46 PM EDT) athologist Signature Potassium 4.2 3.5 - 5.0 [facility] mmol/L [facility] Comment: Please [...] Cuevas MD CHEMISTRY ORDERABLES Performing Organization Address City/[facility]/ZIP [facility] [place] [address] (ABNORMAL) Basic Metabolic Panel (non-fasting) (12/10/2021 6:12 PM EDT) athologist Signature Glucose Lvl 246 (H) 65 - 199 [facility] Comment: Diabetes: >=200 mg/dL plus symp toms BUN 50 (H) 10 - 20 mg/dL [facility] Creatinine 1.39 0.80 - 1.50 mg/dL [facility] LABORATORY Sodium 138 135 - 145 mmol/L [facility] LABORATORY Potassium Not Perf 3.5 - 5.0 [facility] LABORATORY Comment: Unable to [...] Gap 16 (H) 5 - 15 mmol/L [facility] [...] Organization Address City/State/[place] [address] POCT Glucose (12/10/2021 4:59 PM EDT) athologist Signature POC Glucose 158 65 - 199 [facility] mg/dL [facility] Comment: Supplemental ranges: <140 mg/dL before meals <180 mg/dL all other times of the day Specimen Anatomical Collection Method Collection Time Receive d Time (Source) Location / / Volume Laterality Blood 12/10/2021 4:59 PM 4:59 EDT PM EDT Iker Cuevas MD POINT OF CARE TEST ORDERABLE S Performing Organization Address City/State/[place] [address] (ABNORMAL) POCT Glucose (12/10/2021 12:43 PM EDT) athologist Signature POC Glucose 241 (H) 65 - 199 [facility] mg/dL [facility] Comment: Supplemental ranges: <140 mg/dL before meals <180 mg/dL all other times of the day Specimen Anatomical Collection Method Collection Time Receive d Time (Source) Location / / Volume Laterality Blood 12/10/2021 12:43 12/10/2021 PM EDT 12:43 PM EDT Iker Cuevas MD POINT OF CARE TEST ORDERABLE S Performing Organization Address City/State/[place] [address] EKG 12 Lead (12/10/2021 11:17 AM EDT) Component Value Ref Range Test Analysis Performed Pathologis t Method Time At Signature Ventricular rate 62 BPM MUSE SYSTEM Atrial Rate 62 BPM MUSE SYSTEM P-R Interval 142 ms MUSE SYSTEM QRS Duration 100 ms MUSE SYSTEM Q-T Interval 434 ms MUSE SYSTEM QTC Calculated 440 ms MUSE SYSTEM (Bezet) Calculated P [place] 34 degrees MUSE SYSTEM Calculated R [place] -39 degrees MUSE SYSTEM Calculated T [place] 92 degrees MUSE SYSTEM INTERPRETATION Normal sinus [...] SYSTEM - 12/10/2021 12:04 PM E DT ?[facility] ? Cardiac Cathete rization/Intervention Report ? Patient Name: Don Fatima. ? Procedure Date: 12/10/2021 ? A #: [id number] ? Primary Physician: Nobles, Vitaliy P ? Case #: [id number] ? File Name: [id number] ? Catheterization Order Number: [id number] ? [facility] ? Final Report [place], [place] ? Patient Name: ? Don E. Stewa rt ? ID#: ?[id number] ? : ?1945 ? Procedure Date: ? December 10, 2021 ? Case #: ? [id number] ? Room: ? 1 ? Case Physician: [...] was ?designated as ASA Class III. e [facility] clinical frailty scale is 5: Mildly [...] procedure was Urgent. 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 ??Imaging was [...] ?3.75 guiding catheter and a 3.5 Fr [facility] 20 Mhz using Manual ?pullback. ??Imaging was [...] may require ?modification of this regimen. [facility] ?questions. ?The 1 [...] R PDA PCI. ?The attending physician was linda gutiérrez for [...] Procedure Note Vitaliy Nobles MD - 01/14/2022 [facility] Cardiac Catheterization/Intervention Re port Patient Name: Don Fatima Procedure Date: 12/10/2021 A #: [id number] Primary Physician: Vitaliy Nobles Case #: [id number] File Name: [id number] Catheterization Order Number: [id number] [facility] Final Report [place], [place] Patient Name: Don Fatima ID#: [...] e was Urgent. 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 Imaging was [...] and a 3.5 Fr [facility] 20 Mhz using Manual pullback. Imaging was [...] require modification of this regimen. Consult [facility] Interventional Cardiology for questions. The [...] POC Glucose 262 (H) 65 - 199 [facility] mg/dL [facility] Comment: Supplemental ranges: <140 mg/dL before meals <180 mg/dL all other times of the day Specimen Anatomical Collection Method Collection Time Receive d Time (Source) Location / / Volume Laterality Blood 12/10/2021 10:30 12/10/2021 AM EDT 10:30 AM EDT Iker Cuevas MD POINT OF CARE TEST ORDERABLE S Performing Organization Address City/State/[place] [address] (ABNORMAL) POCT Glucose (12/10/2021 9:48 AM EDT) athologist Signature POC Glucose 279 (H) 65 - 199 [facility]dL [facility] Comment: Supplemental ranges: <140 mg/dL before meals <180 mg/dL all other times of the day Specimen Anatomical Collection Method Collection Time Receive d Time (Source) Location / / Volume Laterality Blood 12/10/2021 9:48 AM 2 9:48 EDT AM EDT Iker Cuevas MD POINT OF CARE TEST ORDERABLE S Performing Organization Address City/State/ZIP Code Phon e Number [address] (ABNORMAL) POCT Glucose (12/10/2021 9:07 AM EDT) athologist Signature POC Glucose 268 (H) 65 - 199 [facility] mg/dL [facility] Comment: Supplemental ranges: <140 mg/dL before meals <180 mg/dL all other times of the day Specimen Anatomical Collection Method Collection Time Receive d Time (Source) Location / / Volume Laterality Blood 12/10/2021 9:07 AM 2 9:07 EDT AM EDT Iker Cuevas MD POINT OF CARE TEST ORDERABLE S Performing Organization Address City/State/[place] [address] (ABNORMAL) Point of Care Blood Gas Historical (12/10/2021 9:04 AM EDT) [facility] Method Time Signature POC pH 7.40 7.35 - [facility] 7.45 [facility] LABORATORY POC PCO2 40 35 - 45 [facility] LABORATORY POC PO2 63 (L) 85 - 104 [facility] LABORATORY POC Base Excess 0.0 -3.0 - 3.0 [facility] K mmol/L [facility] LABORATORY POC HCO3 24.8 20.0 - [facility] 26.0 [facility] mmol/L [facility] LABORATORY POC Sodium 143 135 - 145 [facility] mmol/L [facility] LABORATORY POC Potassium 3.7 3.5 - 5.0 [facility] mmol/L [facility] LABORATORY POC Ionized Ca 1.07 (L) 1.15 - [facility] 1.33 [facility] mmol/[facility] LABORATORY POC Hematocrit 30.0 (L) 40.0 - [facility] 51.0 % [facility] LABORATORY POC Calc Hgb 10.2 (L) 13.7 - [facility] 17.5 g/dL [facility]ORATORY Comment: The calculation of hemoglobin f rom hematocrit assumes a normal MCHC. POC Bgas Loc CC LAB [facility] LABORATORY Specimen Anatomical Collection Method Collection Time Receive d Time (Source) Location / / Volume Laterality Blood 12/10/2021 9:04 AM 2 EDT 12:00 PM EDT Ifeanyi Truong MD CHEMISTRY ORDERABLES Performing Organization Address City/[facility]/[place] [address] (ABNORMAL) POCT Glucose (12/10/2021 7:19 AM EDT) athologist Signature POC Glucose 274 (H) 65 - 199 [facility] mg/dL [facility] LABOR[facility]ORY Comment: Supplemental ranges: <140 mg/dL before meals <180 mg/dL all other times of the day Specimen Anatomical Collection Method Collection Time Receive d Time (Source) Location / / Volume Laterality Blood 12/10/2021 7:19 AM 2 7:19 EDT AM EDT Iker Cuevas MD POINT OF CARE TEST ORDERABLE S Performing Organization Address City/[facility]/[place] [address] Heparin (unfractionated) Level (12/10/2021 4:25 AM EDT) athologist Signature Heparin UFH 0.69 IU/mL [facility] LABORATORY Comment: Heparin (anti-Xa) levels [...] Organization Address City/State/[place] [address] (ABNORMAL) Differential, Automated (12/10/2021 4:25 AM EDT) [facility] Method Time Signature Neutrophils % 79.8 % [facility] LABORATORY Neutr Abs (ANC) 7.47 (H) 1.70 - [facility] 6.10 [facility] x10(3)/[facility] LABORATORY Lymphocytes % 10.6 % [facility]ORATORY Lymphocytes Abs 1.0 0.9 - 3.2 [facility] x10(3)/[facility] LABORATORY Monocytes % 8.4 % [facility]ORATORY Monocyte Abs 0.8 0.3 - 0.9 [facility] x10(3)[facility] LABORATORY Eosinophils % 0.6 % [facility]ORATORY Eosinophils Abs 0.1 0.0 - 0.4 [facility] x10(3)/[facility] LABORATORY Basophils % 0.2 % [facility]ORATORY Basophils Abs 0.0 0.0 - 0.1 [facility] x10(3)/[facility] LABORATORY Immature Gran % 0.40 % [facility]ORATORY Comment: Immature granulocytes(IG's)percentage an d absolute count will include metamyelocytes, myelocytes, and promyelo cytes. Blood smears from CBCs yielding IG's will be scanned manually for concor dance. If this scan disagrees with the automated IG or if promyelocytes are not ed, a manual differential will be performed. Melisa Gran Abs 0.04 0.00 - 0.04 x10(3)/[facility] LABORATORY Specimen Anatomical Collection Method Collection Time Receive d Time (Source) Location / / Volume Laterality Blood 12/10/2021 4:25 AM 4:34 EDT AM EDT Resulting Agency Comment Spec In Lab Morgan BROWN HEMATOLOGY ORDERABLES Performing Organization Address City/State/[place] [address] (ABNORMAL) Hemogram (12/10/2021 4:25 AM EDT) Analysis Performed At Patho logist Time Signature WBC 9.4 4.0 - 9.5 [facility] x10(3)/[facility] LABORATORY RBC 3.81 (L) 4.58 - [facility] SU 5.54 [facility] x10(6)/[facility] LABORATORY Hemoglobin 11.1 (L) 13.7 - [facility] g/dL [facility]ATORY Hematocrit 34.0 (L) 40.5 - [facility] 48.5 % [facility] LABORATORY MCV 89.2 82.9 - [facility] 93.1 [facility] LABORATORY MCH 29.1 27.5 - [facility] SU 32.1 pg [facility] LABORATORY MCHC 32.6 32.0 - [facility] 35.7 g/dL [facility]ORATORY Platelets 183 145 - 357 [facility] x10(3)/[facility] LABORATORY RDWSD 49.9 (H) 36.0 - [facility] SU 45.0 [facility] LABORATORY RDWCV 15.2 (H) 11.4 - [facility] SU 13.8 % [facility] LABORATORY MPV 9.8 7.6 - 12.9 [facility] LABORATORY nRBC % Auto 0.0 % [facility] LABORATORY nRBC Abs Auto 0.000 0.000 - [facility] SU 0.000 [facility] x10(3)/[facility] LABORATORY Specimen Anatomical Collection Method Collection Time Receive d Time (Source) Location / / Volume Laterality Blood 12/10/2021 4:25 AM 2 4:34 EDT AM EDT Resulting Agency Comment Spec In Lab Morgan BROWN HEMATOLOGY ORDERABLES Performing Organization Address City/[facility]/[place] [address] (ABNORMAL) Prothrombin Time (12/10/2021 4:25 AM EDT) athologist Signature PT 20.0 (H) 9.4 - 12.5 [facility] LABORATORY INR 1.7 [facility] LABORATORY Comment: [...] Cuevas MD HEMATOLOGY ORDERABLES Performing Organization Address City/[facility] [place] [address] (ABNORMAL) BMP w/fasting Glucose (12/10/2021 4:25 AM EDT) P athologist Signature Glucose 210 (H) 65 - 99 [facility] Fasting mg/dL [facility] LABORATORY Comment: [...] BUN 54 (H) 10 - 20 mg/dL [facility]ORATORY Creatinine 1.52 (H) 0.80 - [...] - 15 mmol/L [facility] LABORATORY Calcium 8.0 (L) 8.5 - [...] Organization Address City/State/[place] [address] Magnesium (12/10/2021 4:25 AM EDT) athologist Signature Magnesium 0.95 0.69 - 1.07 [facility]/L [facility] LABOR[facility]ORY Specimen Anatomical Collection Method Collection Time Receive d Time (Source) Location / / Volume Laterality Blood 12/10/2021 4:25 AM 2 4:34 EDT AM EDT Resulting Agency Comment Spec In Lab Iker Cuevas MD CHEMISTRY ORDERABLES Performing Organization Address City/[facility]/ZIP Code Phon e Number [address] POCT Glucose (12/10/2021 1:58 AM EDT) athologist Signature POC Glucose 164 65 - 199 [facility] mg/dL [facility] LABORATORY Comment: Supplemental ranges: <140 mg/dL before meals <180 mg/dL all other times of the day Specimen Anatomical Collection Method Collection Time Receive d Time (Source) Location / / Volume Laterality Blood 12/10/2021 1:58 AM 2 1:58 EDT AM EDT Iker Cuevas MD POINT OF CARE TEST ORDERABLE S Performing Organization Address City/[facility]/[place] [address] (ABNORMAL) POCT Glucose (12/09/2021 9:02 PM EDT) athologist Signature POC Glucose 313 (H) 65 - 199 [facility] mg/dL [facility] LABORATORY Comment: Supplemental ranges: <140 mg/dL before meals <180 mg/dL all other times of the day Specimen Anatomical Collection Method Collection Time Receive d Time (Source) Location / / Volume Laterality Blood 12/09/2021 9:02 PM 2 9:02 EDT PM EDT Iker Cuevas MD POINT OF CARE TEST ORDERABLE S Performing Organization Address City/State/ZIP Code Phon e Number [place] [id number] Heparin (unfractionated) Level (12/09/2021 7:30 PM EDT) athologist Signature Heparin UFH 0.48 IU/mL [facility] LABORATORY Comment: Heparin (anti-Xa) levels [...] Organization Address City/State/[place] [address] (ABNORMAL) Basic Metabolic Panel (non-fasting) (12/09/2021 7:30 PM EDT) athologist Signature Glucose Lvl 372 (H) 65 - 199 [facility] mg/dL [facility] LABORATORY Comment: Diabetes: >=200 mg/dL plus symp toms BUN 56 (H) 10 - 20 mg/dL [facility] LABORATORY Creatinine 1.75 (H) 0.80 - [...] Organization Address City/State/[place] [address] (ABNORMAL) POCT Glucose (12/09/2021 6:34 PM EDT) P athologist Signature POC Glucose 408 (H) 65 - 199 [facility] mg/dL [facility] LABORATORY Comment: Supplemental ranges: <140 mg/dL before meals <180 mg/dL all other times of the day Specimen Anatomical Collection Method Collection Time Receive d Time (Source) Location / / Volume Laterality Blood 12/09/2021 6:34 PM 2 6:34 EDT PM EDT Iker Cuevas MD POINT OF CARE TEST ORDERABLE S Performing Organization Address City/State/[place] [address] (ABNORMAL) POCT Glucose (12/09/2021 6:32 PM EDT) athologist Signature POC Glucose 356 (H) 65 - 199 [facility]dL [facility] Comment: Supplemental ranges: <140 mg/dL before meals <180 mg/dL all other times of the day Specimen Anatomical Collection Method Collection Time Receive d Time (Source) Location / / Volume Laterality Blood 12/09/2021 6:32 PM 2 6:32 EDT PM EDT Iker Cuevas MD POINT OF CARE TEST ORDERABLE S Performing Organization Address City/[facility]/[place] [address] (ABNORMAL) POCT Glucose (12/09/2021 4:19 PM EDT) athologist Signature POC Glucose 347 (H) 65 - 199 [facility] Comment: Supplemental ranges: <140 mg/dL before meals <180 mg/dL all other times of the day Specimen Anatomical Collection Method Collection Time Receive d Time (Source) Location / / Volume Laterality Blood 12/09/2021 4:19 PM 2 4:19 EDT PM EDT Iker Cuevas MD POINT OF CARE TEST ORDERABLE S Performing Organization Address City/[facility]/[place] [address] Heparin (unfractionated) Level (12/09/2021 1:29 PM EDT) athologist Signature Heparin UFH 0.42 IU/mL [facility] LABORATORY Comment: Heparin (anti-Xa) levels [...] Cuevas MD HEMATOLOGY ORDERABLES Performing Organization Address City/[facility] Code Phon e Number [address] (ABNORMAL) POCT Glucose (12/09/2021 12:02 PM EDT) athologist Signature POC Glucose 235 (H) 65 - 199 [facility]dL [facility] Comment: Supplemental ranges: <140 mg/dL before meals <180 mg/dL all other times of the day Specimen Anatomical Collection Method Collection Time Receive d Time (Source) Location / / Volume Laterality Blood 12/09/2021 12:02 12/09/2021 PM EDT 12:02 PM EDT Iker Cuevas MD POINT OF CARE TEST ORDERABLE S Performing Organization Address City/[facility]/[place] [address] (ABNORMAL) POCT Glucose (12/09/2021 9:44 AM EDT) P athologist Signature POC Glucose 214 (H) 65 - 199 [facility] SU mg/dL [facility] LABORATORY Comment: Supplemental ranges: <140 mg/dL before meals <180 mg/dL all other times of the day Specimen Anatomical Collection Method Collection Time Receive d Time (Source) Location / / Volume Laterality Blood 12/09/2021 9:44 AM 2 9:44 EDT AM EDT Iker Cuevas MD POINT OF CARE TEST ORDERABLE S Performing Organization Address City/[facility]/[place] [address] EKG 12 Lead (12/09/2021 7:57 AM EDT) Component Value Ref Range Test Analysis Performed Pathologis t Method Time At Signature Ventricular rate 101 BPM MUSE SYSTEM Atrial Rate 101 BPM MUSE SYSTEM P-R Interval 150 ms MUSE SYSTEM QRS Duration 112 ms MUSE SYSTEM Q-T Interval 364 ms MUSE SYSTEM QTC Calculated 471 ms MUSE SYSTEM (Bezet) Calculated P Clar[place] 59 degrees MUSE SYSTEM Calculated R [place] -42 degrees MUSE SYSTEM Calculated T [place] 102 degrees MUSE SYSTEM INTERPRETATION Sinus tachycardia Occasional Premature ventricular com plexes MUSE SYSTEM Left axis deviation 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) Abnormal ECG When compared with ECG of 08-DEC-2021 16:40, Premature ventricular complexes are now Present Confirmed by MD Jim, Yoon ([id number]) on 12/10/2021 4:55:06 PM Specimen Anatomical Collection Method Collection Time Receive d Time (Source) Location / / Volume Laterality 12/09/2021 7:57 AM 2 4:55 EDT PM EDT Iker Cuevas MD ECG ORDERABLES Performing Organization Address City/State/ZIP Code Phon e Number MUSE SYSTEM (ABNORMAL) POCT Glucose (12/09/2021 7:28 AM EDT) P athologist Signature POC Glucose 263 (H) 65 - 199 [facility] mg/dL [facility] LABORATORY Comment: Supplemental ranges: <140 mg/dL before meals <180 mg/dL all other times of the day Specimen Anatomical Collection Method Collection Time Receive d Time (Source) Location / / Volume Laterality Blood 12/09/2021 7:28 AM 2 7:28 EDT AM EDT Iker Cuevas MD POINT OF CARE TEST ORDERABLE S Performing Organization Address City/State/[place] [address] (ABNORMAL) Hemoglobin A1c (12/09/2021 [...] Avg Gluc See note mg/dL [facility] LABORATORY Comment: Estimated Average Glucose not appropriat [...] with hemoglobinopathies. Additional resources are available on [facility] ADA website. Macario HAMMOND, Ruthann J, Deysi R, et al. ??Tr anslating the A1C assay into estimated average glucose values. ??Diabetes Care 2008:31(8):6259-4106. Specimen Anatomical Collection Method Collection Time Receive d Time (Source) Location / / Volume Laterality Blood Venous Draw / 12/09/2021 6:18 AM 12/10/19 22 Unknown EDT 12:24 PM EDT Resulting Agency Comment Spec In Lab Migdalia BROWN CHEMISTRY ORDERABLES Performing Organization Address City/[facility]/[place] [address] (ABNORMAL) Prothrombin Time (12/09/2021 6:18 AM EDT) athologist Signature PT 26.6 (H) 9.4 - 12.5 [facility] LABORATORY INR 2.3 [facility] LABORATORY Comment: [...] Migdalia BROWN HEMATOLOGY ORDERABLES Performing Organization Address City/[facility]/[place] [address] Heparin (unfractionated) Level (12/09/2021 6:18 AM EDT) athologist Signature Heparin UFH 0.24 IU/mL [facility] LABORATORY Comment: Heparin (anti-Xa) levels [...] Organization Address City/State/[place] [address] (ABNORMAL) Differential, Automated (12/09/2021 6:18 AM EDT) [facility] Method Time Signature Neutrophils % 91.5 % [facility] LABORATORY Neutr Abs (ANC) 15.78 (H) 1.70 - [facility] 6.10 [facility] x10(3)/[facility] LABORATORY Lymphocytes % 2.9 % [facility] LABORATORY Lymphocytes Abs 0.5 (L) 0.9 - 3.2 [facility] x10(3)/[facility] LABORATORY Monocytes % 4.9 % [facility] LABORATORY Monocyte Abs 0.8 0.3 - 0.9 [facility] x10(3)/[facility] LABORATORY Eosinophils % 0.0 % [facility] LABORATORY Eosinophils Abs 0.0 0.0 - 0.4 [facility] x10(3)/[facility] LABORATORY Basophils % 0.2 % [facility] LABORATORY Basophils Abs 0.0 0.0 - 0.1 [facility] x10(3)/[facility] LABORATORY Immature Gran % 0.50 % [place] [...] Organization Address City/State/[place] [address] (ABNORMAL) Hemogram (12/09/2021 6:18 AM EDT) Analysis Performed At Patho logist Time Signature WBC 17.2 (H) 4.0 - 9.5 [facility] x[facility](3[facility] LABORATORY RBC 4.32 (L) 4.58 - [facility] 5.54 [facility] x10(6)/[facility] LABORATORY Hemoglobin 12.6 (L) 13.7 - [facility] 16.5 g/dL [facility]ORY Hematocrit 38.9 (L) 40.5 - [facility] 48.5 % [facility] MCV 90.0 82.9 - [facility] 93.1 [facility] LABORATORY MCH 29.2 27.5 - [facility] 32.1 pg [facility]ORATORY MCHC 32.4 32.0 - [facility] 35.7 g/dL [facility] LABORATORY Platelets 193 145 - 357 [facility] x10(3)/[facility] LABORATORY RDWSD 50.4 (H) 36.0 - [facility] 45.0 [facility] LABORATORY RDWCV 15.2 (H) 11.4 - [facility] SU 13.8 % [facility] LABORATORY MPV 9.5 7.6 - 12.9 [facility] nRBC % Auto 0.0 % [facility] LABORATORY nRBC Abs Auto 0.000 0.000 - [facility] SU 0.000 [facility] x10(3)/[facility] LABORATORY Specimen Anatomical Collection Method Collection Time Receive d Time (Source) Location / / Volume Laterality Blood 12/09/2021 6:18 AM 2 6:33 EDT AM EDT Resulting Agency Comment Spec In Lab Morgan BROWN HEMATOLOGY ORDERABLES Performing Organization Address City/State/[place] [address] Lipid Panel (Reflex Direct LDL) (12/09/2021 6:18 AM EDT) athologist Signature Chol, Total 105 mg/dL [facility] LABORATORY Comment: Lower Risk: <200 mg/dL Average Risk: 200-239 mg/dL Higher Risk: >rh=374 mg/dL Triglycerides 133 mg/dL [facility] LABORATORY Comment: Average Risk/Lower Risk: <150 mg/dL Borderline High Risk: 150-199 mg/dL High Risk: 200-499 mg/dL Very High Risk: >xn=893 mg/dL HDL 42 mg/dL [facility] LABORATORY Comment: Males: ?? Higher Risk: <40 mg/dL Females: ?? Higher Risk: <50 mg/dL LDL Cholesterol 36 mg/dL [facility] LABORATORY Comment: Lowest Risk: <100 mg/dL Lower Risk: 100-129 mg/dL Borderline High Risk: 130-159 mg/dL High Risk: 160-189 mg/dL Very High Risk: >zn=175 mg/dL Chol/HDL Ratio 2.5 ratio [facility] LABORATORY Lipid Interpretation See Note [facility] LABORATORY Comment: Lipid management should be guided by a p atient? s ASCVD risk, goals and preferences. ACC/AHA Guidelines recommend high intens ity statin if clinical ASCVD or LDL greater than or equal to 190 mg/dL. [email or web address]/[email or web address]-UNN-Ezlnrgpll Adults aged 40-75 with LDL 70-189 mg/dL should have their 10 year ASCVD risk estimated with the ACC/AHA ASCVD risk es timator http://tools.acc.org/SAKMM-Ofkj-Lsnabbal r/ Statin should be discussed if risk [...] Cuevas MD CHEMISTRY ORDERABLES Performing Organization Address City/[facility]/[place] [address] TSH (12/09/2021 6:18 AM EDT) athologist Signature TSH 1.60 0.27 - 4.20 [facility] mcIU/mL [facility] LABORATORY Comment: Reference Interval (mcIU/mL): Females: ??First Trimester: 0.23-3.88 ??Second Trimester: 0.22-3.90 ??Third Trimester: 0.44-4.66 Specimen Anatomical Collection Method Collection Time Receive d Time (Source) Location / / Volume Laterality Blood 12/09/2021 6:18 AM 2 6:33 EDT AM EDT Resulting Agency Comment Spec In Lab Iker Cuevas MD CHEMISTRY ORDERABLES Performing Organization Address City/[facility] [place] [address] Hepatic Function Panel (12/09/2021 6:18 AM EDT) athologist Signature Total Protein 7.3 6.1 - 8.0 [facility] g/dL [facility]ORATORY Albumin 4.2 3.2 - 5.2 [facility] g/dL [facility]ORAT[facility] AST 25 0 - 39 [facility] unit/L [facility] ALT 15 0 - 55 [facility] unit/L [facility]ORAT[facility] Alk Phos 75 40 - 130 [facility] unit/L [facility] Total 1.1 0.2 - 1.3 [facility] Bilirubin mg/dL [facility] LABORAT[facility] Bili, Direct 0.2 0.0 - 0.3 [facility] mg/dL [facility]ORATORY Specimen Anatomical Collection Method Collection Time Receive d Time (Source) Location / / Volume Laterality Blood 12/09/2021 6:18 AM 2 6:33 EDT AM EDT Resulting Agency Comment Spec In Lab Iker Cuevas MD CHEMISTRY ORDERABLES Performing Organization Address City/State/[place] [address] (ABNORMAL) BMP w/fasting Glucose (12/09/2021 6:18 AM EDT) P athologist Signature Glucose 235 (H) 65 - 99 [facility] Fasting mg/dL [facility] LABORATORY Comment: [...] BUN 49 (H) 10 - 20 mg/dL [facility] LABORATORY Creatinine 1.33 0.80 - 1.50 [...] Cuevas MD CHEMISTRY ORDERABLES Performing Organization Address City/[facility]/[place] [address] Magnesium (12/09/2021 6:18 AM EDT) P athologist Signature Magnesium 0.81 0.69 - 1.07 [facility] mmol/L [facility] LABORATORY Specimen Anatomical Collection Method Collection Time Receive d Time (Source) Location / / Volume Laterality Blood 12/09/2021 6:18 AM 2 6:33 EDT AM EDT Resulting Agency Comment Spec In Lab Iker Cuevas MD CHEMISTRY ORDERABLES Performing Organization Address City/[facility] [place] [address] (ABNORMAL) Troponin (12/09/2021 6:18 AM EDT) athologist Signature Troponin-T 1.13 (H) 0.00 - [facility] 0.00 ng/mL [facility] LABORATORY Comment: [...] additional sample may be indicated. Reference: [place] Definition of Myocardial Infarction. Journal of the [place] [employer] 2012;60:1581-98 Specimen Anatomical Collection Method Collection Time Receive d Time (Source) Location / / Volume Laterality Blood 12/09/2021 6:18 AM 6:33 EDT AM EDT Resulting Agency Comment Spec In Lab Iker Cuevas MD CHEMISTRY ORDERABLES Performing Organization Address City/State/[place] [address] XR Chest One View [...] have questions please contact the health career agent that requested your imaging first. ? Narrative [...] have questions please contact the health career agent that requested your imaging first. Amber Sanches MD IMG DX ORDERABLES (ABNORMAL) BLOOD GAS 2 ARTERIAL (12/09/2021 5:14 AM EDT) Analysis Performed At Patho logist Time Signature pH Art 7.43 7.35 - [facility] 7.45 [facility] LABORATORY pCO2 Art 36 35 - 45 [facility] mmHg [facility]ORATORY pO2 Art 67 (L) 85 - 104 [facility] LABORATORY HCO3 Art 23.4 20.0 - [facility] 26.0 [facility] mmol/L [facility] LABORATORY BE Art -0.9 -3.0 - 3.0 [facility] mmol/L [facility] LABORATORY Hgb Blood Gas 13.2 (L) 13.7 - [facility] 16.5 g/dL [facility] O2HB Art 91.3 (L) 94.0 - [facility] 97.0 % [facility]ORATORY COHB Art 0.4 % [place] [...] WB 2.7 (H) 0.5 - 2.2 mmol/L [facility] LABORATORY FIO2 Art 35 % [facility] LABORATORY Flow Art 8.0 LPM [facility] LABORATORY PF Ratio Art 191 [facility] LABORATORY Specimen Anatomical Collection Method Collection Time Receive d Time (Source) Location / / Volume Laterality Blood 12/09/2021 5:14 AM 2 5:14 EDT AM EDT Iker Cuevas MD CHEMISTRY ORDERABLES Performing Organization Address City/State/[place] [address] POCT Glucose (12/09/2021 4:46 AM EDT) athologist Signature POC Glucose 198 65 - 199 [facility] Comment: Supplemental ranges: <140 mg/dL before meals <180 mg/dL all other times of the day Specimen Anatomical Collection Method Collection Time Receive d Time (Source) Location / / Volume Laterality Blood 12/09/2021 4:46 AM 2 4:46 EDT AM EDT Iker Cuevas MD POINT OF CARE TEST ORDERABLE S Performing Organization Address City/[facility]/ZIP Code Phon e Number [address] (ABNORMAL) POCT Glucose (12/09/2021 3:01 AM EDT) athologist Signature POC Glucose 225 (H) 65 - 199 [facility] mg[facility]dL [facility] Comment: Supplemental ranges: <140 mg/dL before meals <180 mg/dL all other times of the day Specimen Anatomical Collection Method Collection Time Receive d Time (Source) Location / / Volume Laterality Blood 12/09/2021 3:01 AM 2 3:01 EDT AM EDT Iker Cuevas MD POINT OF CARE TEST ORDERABLE S Performing Organization Address City/State/ZIP Code Phon e Number [address] (ABNORMAL) POCT Glucose (12/08/2021 10:55 PM EDT) athologist Signature POC Glucose 327 (H) 65 - 199 [facility] mg[facility]dL [facility] Comment: Supplemental ranges: <140 mg/dL before meals <180 mg/dL all other times of the day Specimen Anatomical Collection Method Collection Time Receive d Time (Source) Location / / Volume Laterality Blood 12/08/2021 10:55 12/08/2021 PM EDT 10:55 PM EDT Iker Cuevas MD POINT OF CARE TEST ORDERABLE S Performing Organization Address City/[facility]/[place] [address] Heparin (unfractionated) Level (12/08/2021 10:03 PM EDT) athologist Signature Heparin UFH 0.18 IU/mL [facility] LABORATORY Comment: Heparin (anti-Xa) levels [...] Cuevas MD HEMATOLOGY ORDERABLES Performing Organization Address City/[facility]/[place] [address] (ABNORMAL) Troponin (12/08/2021 10:03 PM EDT) athologist Signature Troponin-T 0.92 (H) 0.00 - [facility] 0.00 ng/mL [facility]ORATORY Comment: [...] additional sample may be indicated. Reference: [place] Definition of Myocardial Infarction. Journal of the [place] [employer] 2012;60:1581-98 Specimen Anatomical Collection Method Collection Time Receive d Time (Source) Location / / Volume Laterality Blood 12/08/2021 10:03 12/08/2021 PM EDT 10:31 PM EDT Resulting Agency Comment Spec In Lab Ikre Cuevas MD CHEMISTRY ORDERABLES Performing Organization Address City/State/ZIP Code Phon e Number [address] (ABNORMAL) POCT Glucose (12/08/2021 8:22 PM EDT) athologist Signature POC Glucose 429 (H) 65 - 199 [facility] mg/dL [facility]ORATORY Comment: Supplemental ranges: <140 mg/dL before meals <180 mg/dL all other times of the day Specimen Anatomical Collection Method Collection Time Receive d Time (Source) Location / / Volume Laterality Blood 12/08/2021 8:22 PM 8:22 EDT PM EDT Iker Cuevas MD POINT OF CARE TEST ORDERABLE S Performing Organization Address City/State/[place] [address] (ABNORMAL) POCT Glucose (12/08/2021 7:06 PM EDT) athologist Signature POC Glucose 442 (H) 65 - 199 [facility] mg/dL [facility] Comment: Supplemental ranges: <140 mg/dL before meals <180 mg/dL all other times of the day Specimen Anatomical Collection Method Collection Time Receive d Time (Source) Location / / Volume Laterality Blood 12/08/2021 7:06 PM 2 7:06 EDT PM EDT Iker Cuevas MD POINT OF CARE TEST ORDERABLE S Performing Organization Address City/[facility]/ZIP Code Phon e Number [address] Magnesium (12/08/2021 6:02 PM EDT) athologist Signature Magnesium 0.86 0.69 - 1.07 [facility] mmol/L [facility] LABORATORY Specimen Anatomical Collection Method Collection Time Receive d Time (Source) Location / / Volume Laterality Blood 12/08/2021 6:02 PM 2 6:36 EDT PM EDT Resulting Agency Comment Spec In Lab Iker Cuevas MD CHEMISTRY ORDERABLES Performing Organization Address City/State/[place] [address] (ABNORMAL) Basic Metabolic Panel (non-fasting) (12/08/2021 6:02 PM EDT) athologist Signature Glucose Lvl 392 (H) 65 - 199 [facility] mg/dL [facility]OR[facility] Comment: Diabetes: >=200 mg/dL plus symp toms BUN 41 (H) 10 - 20 mg/dL [facility]ORATORY Creatinine 1.44 0.80 - 1.50 [...] Gap 16 (H) 5 - 15 mmol/L [facility] [...] Organization Address City/State/[place] [address] (ABNORMAL) Differential, Automated (12/08/2021 6:02 PM EDT) [facility] gist Method Time Signature Neutrophils % 89.5 % [facility] LABORATORY Neutr Abs (ANC) 13.97 (H) 1.70 - [facility] 6.10 [facility] x10(3)/[facility] LABORATORY Lymphocytes % 3.7 % [facility]ORATORY Lymphocytes Abs 0.6 (L) 0.9 - 3.2 [facility] x10(3)/[facility] LABORATORY Monocytes % 6.1 % [facility]ORATORY Monocyte Abs 1.0 (H) 0.3 - 0.9 [facility] x10(3)/[facility] LABORATORY Eosinophils % 0.0 % [facility]ORATORY Eosinophils Abs 0.0 0.0 - 0.4 [facility] x10(3)/[facility] LABORATORY Basophils % 0.2 % [facility]ORATORY Basophils Abs 0.0 0.0 - 0.1 [facility] x10(3)/[facility] LABORATORY Immature Gran % 0.50 % [facility] [...] Organization Address City/State/[place] [address] (ABNORMAL) Hemogram (12/08/2021 6:02 PM EDT) Analysis Performed At Patho logist Time Signature WBC 15.6 (H) 4.0 - 9.5 [facility] x10(3)/[facility] LABORATORY RBC 4.05 (L) 4.58 - [facility] 5.54 [facility] x10(6)/[facility] LABORATORY Hemoglobin 11.8 (L) 13.7 - [facility] 16.[facility] g/dL [facility] LABORATORY Hematocrit 35.8 (L) 40.5 - [facility] 48.5 % [facility]ORAT[facility] MCV 88.4 82.9 - [facility] 93.1 fL [facility]ORAT[facility] MCH 29.1 27.5 - [facility] 32.1 pg [facility]AT[facility] MCHC 33.0 32.0 - [facility] 35.7 g/dL [facility]ORATORY Platelets 178 145 - 357 [facility] x10(3)/[facility] LABORATORY RDWSD 49.3 (H) 36.0 - [facility] 45.0 [facility] LABORATORY RDWCV 15.1 (H) 11.4 - [facility] 13.8 % [facility] LABORATORY MPV 10.4 7.6 - 12.9 [facility] LABORATORY nRBC % Auto 0.0 % [facility] nRBC Abs Auto 0.000 0.000 - [facility] 0.000 [facility] x10(3)/[facility] LABORATORY Specimen Anatomical Collection Method Collection Time Receive d Time (Source) Location / / Volume Laterality Blood 12/08/2021 6:02 PM 6:36 EDT PM EDT Resulting Agency Comment Spec In Lab Morgan BROWN HEMATOLOGY ORDERABLES Performing Organization Address City/State/[place] [address] (ABNORMAL) Troponin (12/08/2021 6:02 [...] additional sample may be indicated. Reference: [place] Definition of Myocardial Infarction. Journal of the [place] [employer] 2012;60:1581-98 Specimen Anatomical Collection Method Collection Time Receive d Time (Source) Location / / Volume Laterality Blood 12/08/2021 6:02 PM 6:36 EDT PM EDT Resulting Agency Comment Spec In Lab Iker Cuevas MD CHEMISTRY ORDERABLES Performing Organization Address City/State/[place] [address] COVID-19 PCR (12/08/2021 5:00 PM EDT) [facility] Method Time Signature SARS-CoV-2 Not Detected Not Detected [facility] RNA PCR [facility] LABORATORY Comment: This result should [...] using the Simplexa COVID-19 Direct Assay by [employer]joi marcum as authorized by the FDA issued [...] Department of Pathology and Laboratory Medicine at [facility], certified under the Clinical Laboratory [...] clinical management guidance information are available at [facility] CDC Coronavirus Disease 2019 (COVID-19) webpage under Information fo r Healthcare Professionals (https://www.cdc.gov/coronavirus/2019-nc ov/hcp/index.html). Additional information about this and ot her EUA tests can be found in provider and patient fact sheets at the following FDA website: https://www.fda.gov/medical-devices/exnlwnqqwkl-qpturte-9922-nogpx-70-cbvpyrobq- rsj-ugcchagqnqinov-mvfliab-devices/phcej-hdqhqvngajm-lfar SARS-CoV-2 Source [employer] [facility] LABORATORY Specimen (Source) Anatomical Collection Method Collection Time Re ceived Time Location / / Volume Laterality Nasopharyngeal Swab 12/08/2021 5:00 12/08 PM EDT 6:03 PM EDT Comment: Symptoms->Surveillance Resulting Agency Comment Spec In Lab Iker Cuevas MD MICROBIOLOGY - GENERAL ORDER [place] Performing Organization Address City/State/[place] [address] EKG 12 Lead (12/08/2021 4:40 PM EDT) Component Value Ref Range Test Analysis Performed Pathologis t Method Time At Signature Ventricular rate 78 BPM MUSE SYSTEM Atrial Rate 78 BPM MUSE SYSTEM P-R Interval 152 ms MUSE SYSTEM QRS Duration 96 ms MUSE SYSTEM Q-T Interval 396 ms MUSE SYSTEM QTC Calculated 451 ms MUSE SYSTEM (Bezet) Calculated P [place] 44 degrees MUSE SYSTEM Calculated R [place] -31 degrees MUSE SYSTEM Calculated T [place] 124 degrees MUSE SYSTEM INTERPRETATION Normal sinus [...] POC Glucose 400 (H) 65 - 199 [facility] mg/dL [facility] Comment: Supplemental ranges: <140 mg/dL before meals <180 mg/dL all other times of the day Specimen Anatomical Collection Method Collection Time Receive d Time (Source) Location / / Volume Laterality Blood 12/08/2021 4:34 PM 2 4:34 EDT PM EDT Iker Cuevas MD POINT OF CARE TEST ORDERABLE S Performing Organization Address City/State/ZIP Code Phon e Number [place] [phone] documented in this encounter [...] DAILY, First dose on Ivis 12/11/21 at 0900, Until Discontinued, Routine Given 12/11/2021 [...] Given 11/23 10:30 AM EDT 300 mcg (TANK BUILDER HELPER) ONCE PRN, Starting on Wed12/10/21 at 1030, [...] ED) 1100 (Given - Provider: Anthony Fatima, RN) 80 mg, Intravenous, ONCE, 1 dose, On Wed12/10/21 at 1100, Cath (Intra- Procedure), Routine furosemide (Lasix) (10 mg/mL) injection 80 mg (COMPLET ED) 174 (Given - Provider: Emma Garcia, VAMSI) 80 mg, Intravenous, ONCE, 1 dose, [...] Garcia RN)1206 (Given - Provider: Emma Garcia, VAMSI)1609 (Given - Provider: Emma Garcia RN)1847 (Given [...] Routine levothyroxine (Synthroid) tablet 175 mcg 08 (MAR Hol d - Provider: Admin Adt [...] Anthony Fatima, VAMSI)1243 (Stopped - Provider: Emma Garcia, VAMSI) 2 g, Intravenous, ONCE, 1 dose, On [...] on 12/08/21 at 2100, Until Discontinued, Routine 2033 (Given [...] 12/12/2021 acetaminophen (Tylenol) tablet 650 mg 0805 ([facility] Hold - Provider: Admin Adt - Reason: Transfer to a Procedural area)1230 ([facility] Unhold - Provider: Admin Adt) 650 [...] Routine bisacodyL (Dulcolax) suppository 10 mg 0805 ([facility] Hold - Provider: Admin Adt - Reason: Transfer to a Procedural area)1230 ([facility] Unhold - Provider: Admin Adt) 10 mg, Rectal, DAILY PRN, Starting on e 12/09/21 at 1629, Until Wed12/12/21 at 1312, Constipation, Routine dextrose 10% infusion(Linked Group 2) 0805 ([facility] Hold - Provider: Admin Adt - Reason: Transfer to a Procedural area)1230 ([facility] Unhold - Provider: Admin Adt) 250 [...] (Intra-Procedure), Routine niCARdipine (Cardene) (100 mcg/mL) dilution (TANK BUILDER HELPER) (CANCELED) 1030 (Given - Provider: Vitaliy Nobles [...] episode. & nbsp; For persistent hypoglycemia, con fish inspector longer-acting treatment for the duration of the [...]
Routine documented in this encounter Care Teams Funeral Home Assistant Relationship Specialty Start Date End Date Lovely Vicente MD PCP - General 04/16/[address] [place] [address] documented as of this encounter
--- OUTSIDE RECORDS SUMMARY | 2022-03-09 15:24 | XMS_ITS | Encounter Summary ---
:1945 Author Organization [facility] [place] [address] Care Team Providers Name Role Phone Lovely Vicente MD Primary Care Provider Encounter Details Date Type Department Care Team Description 03/20/2021 Ancillary Procedure Radiology Library [place] [address] [place] [address] [phone] Social History Tobacco Use Types Packs/Day Years [...] MD [facility] [address] T[address] [place], [place] [address] (Wo rk) 06/10/2022 Office Visit Dermatology Laura Scherer MD [facility] [address] TE[address]MAT [place], [place] [address] (Wo rk) documented as [...] Address City/State/ZIP Code Phon e Number [place], [place] documented in this encounter Visit Diagnoses Not on filedocumented in this encounter Care Teams Inventory And Pricing Associate Relationship Specialty Start Date End Date Lovely Vicente MD PCP - General 04/16/[address] [place] [address] documented as of this encounter
--- OUTSIDE RECORDS SUMMARY | 2022-03-09 15:25 | XMS_ITS | Encounter Summary ---
:1945 Author Organization [facility] [place] [address] Care Team Providers Name Role Phone Lovely Vicente MD Primary Care Provider Encounter Details Date Type Department Care Team Description 09/06/2017 Orders Only [facility]ascular Surgery [place] [facility] [place]infa Clark, [facility] [place] [address] Social History Tobacco Use Types Packs/Day [...] Nobles MD [facility] ER CARDIOLOGY [place], [place] [address] (Wo rk) 06/10/2022 Office Visit Dermatology Laura Scherer MD [facility] ER DR TEJA GR-DERMAT [place], [place] [address] (Wo rk) documented as of this encounter Visit Diagnoses Not on filedocumented in this encounter Care Teams Automobile Travel Club Counselor Relationship Specialty Start Date End Date Lovely Vicente MD PCP - General 04/16/[address] [place] [address] documented as of this encounter
--- OUTSIDE RECORDS SUMMARY | 2022-03-09 15:25 | XMS_ITS | Encounter Summary ---
:1945 Author Organization [facility] [place] [address] Care Team Providers Name Role Phone Lovely Vicente MD Primary Care Provider Reason for Referral Consultation (Routine) - Specialty Diagnoses / Procedures Referred By Contact Refer red To Contact Wound Healing Center Diagnoses Atheroembolism of foot, right Delayed surgical wound healing, subsequent encounter Aurelia Rivera PA [address] [facility] [place] [address] Referral ID Status Reason Start Date Expiration Date Visits V isits Requested Authorized [id number] Consult, 09/08/2017 03/07/2018 1 1 Test & Treat Reason for Visit Reason Comments Wound Check My foot hurts Encounter Details Date Type Department Care Team Description 09/07/2017 Office Visit Vascular Surgery at MiguelAurelia PA Atheroembolism of foot, right; [facility] [address] [facility] Delayed surgical wound healing, subseque nt encounter [facility] [place] [address] [phone] Social History Tobacco Use Types Packs/Day Years [...] at home for VAC dressing changes from [facility]. Since his last visit his right forefoot wound [facility] ??? PRO AMPUTATION FOOT, TRANSMETATARSAL Right 08/09/2017 AMPUTATION, TRANSMETATARSAL (WRVU 12.71) performed by Yonathan Smith MD at [facility] MAIN [...] [facility] ENDOSCOPY ??? PRO DRESSING CHANGE UNDER ANESTHESIA Right 08/11/2017 (MSURG) DRESSING CHANGE (FOR OTHER THAN IVAN) UNDER ANES. (WRVU 0.86) performed by Lamar Smith MD at [facility] MAIN OR ??? PRO ENDOSCOPY W/VIDEO-ASST VEIN HARVEST, CABG Right 07/07/2017 ENDOSCOPIC HARVEST VEIN(S) FOR CABG (WRVU 0.31) performed by Yuan Retana MD at [facility] MAIN OR ??? PRO THYROIDECTOMY 03/28/2013 THYROIDECTOMY, TOTAL OR COMPLETE performed by Manny Mcknight MD at [facility] OR Social Hx: Social History Substance [...] [facility] [address] T[address] [place], [place] [address] (Wo rk) 06/10/2022 Office Visit Dermatology Laura Scherer MD [facility] [address]MAT [place], [place] [address] (Wo rk) Scheduled Referrals Name Type Priority Associated Diagnoses Order S chedule Referral to Wound Outpatient Referral Routine Atheroembolism o f foot, Ordered: Clinic right 09/08/2017 Delayed surgical wound healing, subsequent encounter documented as of this encounter Visit Diagnoses Diagnosis Atheroembolism of foot, right Delayed surgical wound healing, subseque nt encounter documented in this encounter Care Teams Type Proof Reproducer Relationship Specialty Start Date End Date Lovely Vicente MD PCP - General 04/16/[address] [place] [address] documented as of this encounter
--- OUTSIDE RECORDS SUMMARY | 2022-03-09 15:25 | XMS_ITS | Encounter Summary ---
:1945 Author Organization [facility] [place] [address] Care Team Providers Name Role Phone Lovely Vicente MD Primary Care Provider Encounter Details Date Type Department Care Team Description 09/06/2017 Telephone [place] Surgery [place] [facility] [place]inf[place] Clark, [place] [address] Social History Tobacco Use Types Packs/Day [...] [facility] [address] TADEO [place], [place] [address] (Wo rk) 06/10/2022 Office Visit Dermatology Laura Scherer MD [facility] [address] [place], [place] [address] (Wo rk) documented as of this encounter Visit Diagnoses Not on filedocumented in this encounter Care Teams Continuum Of Care Manager Relationship Specialty Start Date End Date Lovely Vicente MD PCP - General 04/16/[address] [place] [address] documented as of this encounter
--- OUTSIDE RECORDS SUMMARY | 2022-03-09 15:25 | XMS_ITS | Encounter Summary ---
:1945 Author Organization [facility] [place] [address] Care Team Providers Name Role Phone Lovely Vicente MD Primary Care Provider Encounter Details Date Type Department Care Team Description 09/03/2017 Telephone Vascular Surgery at [facility] [place] Clark, [place] [address] Social History Tobacco Use Types Packs/Day [...] help with the discomfort of the change. Nurse Midwife told the VNA that I would ask [...] [facility] ER DR TADEO [place], [place] [address] (Wo rk) 06/10/2022 Office Visit Dermatology Laura Scherer MD [facility] DR [address] [facility] [place] [address] (Wo rk) documented as of this encounter Visit Diagnoses Not on filedocumented in this encounter Care Teams Group Fitness Instructor Relationship Specialty Start Date End Date Lovely Vicente MD PCP - General 04/16/[address] [place] [address] documented as of this encounter
--- OUTSIDE RECORDS SUMMARY | 2022-03-09 15:25 | XMS_ITS | Encounter Summary ---
:1945 Author Organization [facility] [place] [address] Care Team Providers Name Role Phone Lovely Vicente MD Primary Care Provider Encounter Details Date Type Department Care Team Description 08/26/2018 Transcribe Orders Laboratory Lovely Vicente, Deferred diagnosis [facility] on axis I [address] [address] [place], [place] [phone] Social History Tobacco Use Types Packs/Day Years [...] [facility] ER DR TADEO [place], [place] [address] (Wo rk) 06/10/2022 Office Visit Dermatology Laura Scherer MD [facility] DR [address]MAT [place], [place] [address] (Wo rk) documented as of this encounter Visit Diagnoses Diagnosis Deferred diagnosis on axis I Other unknown and unspecified cause of m orbidity or mortality documented in this encounter Care Teams Biology Tutor Relationship Specialty Start Date End Date Lovely Vicente MD PCP - General 04/16/[address] [place] [address] documented as of this encounter
--- OUTSIDE RECORDS SUMMARY | 2022-03-09 15:25 | XMS_ITS | Encounter Summary ---
:1945 Author Organization [facility] [place] [address] Care Team Providers Name Role Phone Lovely Vicente MD Primary Care Provider Encounter Details Date Type Department Care Team Description 09/07/2017 Laboratory Appointment Lab 3L [facility] Hx of [facility] [place] [address] Social History Tobacco Use Types Packs/Day Years [...] MD [facility] ER CARDIOLOGY [place], [place] [address] (Wo rk) 06/10/2022 Office Visit Dermatology Laura Scherer MD [facility] ER DR TEJA GR[address]DERMAT [place], [place] [address] (Wo rk) documented as of [...] PM EST) athologist Signature Thyroglobulin 1.4 <=54.9 [facility] ng/mL [facility] Comment: Thyroglobulin levels may be [...] Address City/[facility]/ZIP Code Phon e Number [address] TSH (09/07/2017 2:41 PM EST) P athologist Signature TSH 3.93 0.27 - 4.20 [facility] mlU/ML [facility] Specimen Anatomical Collection Method Collection Time Receive d Time (Source) Location / / Volume Laterality Blood specimen 09/07/2017 2:41 PM 018 2:46 (specimen) EST PM EST Resulting Agency Comment Spec In Lab Luz Prescott MD CHEMISTRY ORDERABLES Performing Organization Address City/[facility]/ZIP Code Phon e Number [facility] [place] [address] documented in this encounter Visit Diagnoses Diagnosis Hx of papillary thyroid carcinoma Personal history of malignant neoplasm o f thyroid documented in this encounter Care Teams Construction Quality Control Manager Relationship Specialty Start Date End Date Lovely Vicente MD PCP - General 04/16/[address] [place] [address] documented as of this encounter
--- OUTSIDE RECORDS SUMMARY | 2022-03-09 15:25 | XMS_ITS | Encounter Summary ---
:1945 Author Organization [facility] Address [facility] [place] [address] Care Team Providers Name Role Phone Lovely Vicente MD Primary Care Provider Encounter Details Date Type Department Care Team Description 10/07/2017 Office Visit Cardiology [place] [facility] Danette Maxwell Chronic systolic heart failu re; [facility] A, SKI PATROL OFFICER S/P CABG x 3; Drive [facility] On amiodarone therapy; [place], [place] Atrial fibrillation, unspecified type; [id number] CARDIOLOGY ASCVD (arteriosclerotic cardiovascular d isease) [phone] [place], [place] [address] Social History Tobacco Use Types [...] - documented in this encounter Progress Notes [place] Danette A, SKI PATROL OFFICER - 10/07/2017 11:20 AM EDT ID and [...] 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 [...] by Dr. Espino On IV antibiotics at [facility] Today: Mr. Fatima is accompanied by [...] continue to see Dr. Bains well at [facility] and follow his wound on his right lower extremity. And she will continue to direct antibiotic treatment. Ihave asked that the echocardiogram results be faxed to Dr. Zurita at [facility]. 1. ASCVD Continue ASA, BB and [...] and bone removal by Dr. Aguero at [facility]. Currently receiving IV antibiotics at [facility] ? Plan: 1. A review of [...] [facility] DR TADE[address] [place], [place] [address] (Wo rk) 06/10/2022 Office Visit Dermatology Laura Scherer MD [facility] DR TEJA GR-DERMAT [facility] [place] [place], [place] [address] (Wo rk) documented as of this encounter Results (ABNORMAL) Basic Metabolic Panel (non-fasting) (10/07/2017 8:48 AM EDT) athologist Signature Glucose Lvl 99 65 - 199 [facility] mg/dL [facility] Comment: Diabetes: >=200 mg/dL plus symp toms BUN 27 (H) 10 - 20 mg/dL [facility] Creatinine 1.07 0.80 - 1.50 mg/dL [facility] [...] 15 mmol/L [facility] Calcium 8.4 (L) 8.5 - 10.5 mg/dL [facility] Estimated GFR >60 >=60 [facility] Comment: The reported eGFR should be multiplied b y 1.2 for patients. The MDRD is not an appropriate measure o f renal function for patients with body mass extremes or in patients with acute kidney failure. http://SpotXchange/DHnkdep http://SpotXchange/DHMCnkf Specimen Anatomical Collection Method Collection Time Receive d Time (Source) Location / / Volume Laterality Blood specimen 10/07/2017 8:48 AM 018 8:50 (specimen) EDT AM EDT Resulting Agency Comment Spec In Lab Danette Maxwell APRN CHEMISTRY ORDERABLES Performing Organization Address City/[facility]/[place] [address] (ABNORMAL) pro-Brain Natriuretic Peptide (10/07/2017 8:48 AM EDT) P athologist Signature ProBNP 1,170 (H) <=125 [facility] pg/mL [facility] Specimen Anatomical Collection Method Collection Time Receive d Time (Source) Location / / Volume Laterality Blood specimen 10/07/2017 8:48 AM 018 8:50 (specimen) EDT AM EDT Resulting Agency Comment Spec In Lab Danette Maxwell APRN CHEMISTRY ORDERABLES Performing Organization Address City/State/[place] [address] documented in this encounter Visit Diagnoses Diagnosis Chronic systolic heart failure S/P CABG x 3 Postsurgical aortocoronary bypass status On amiodarone therapy Atrial fibrillation, unspecified type ASCVD (arteriosclerotic cardiovascular d isease) Unspecified cardiovascular disease documented in this encounter Care Teams Diesel Mechanic Construction Relationship Specialty Start Date End Date Lovely Vicente MD PCP - General 04/16/[address] [place] [address] documented as of this encounter
--- OUTSIDE RECORDS SUMMARY | 2022-03-09 15:25 | XMS_ITS | Encounter Summary ---
:1945 [place] [address] Care Team Providers Name Role Phone Lovely Vicente MD Primary Care Provider Encounter Details Date Type Department Care Team Description 11/29/2017 Hospital Encounter Radiology Library at Estefany Maxwell Pain [facility] DAIRY TRUCK DRIVER [facility] [place] [address] CARDIOLOGY [phone] [place], [place] [address] (Wo rk) Social History Tobacco [...] 10/08/2017 07/13/2018 PACERONE) 200 mg daily. Tablet meTOPROLOL succinate Take 25 mg by mouth 0 03/06/2022 (TOPROL-XL) 25 mg daily. 0.5 tablet of Tablet Sustained 50 mg Release 24 hr insulin glargine Inject 15 Units 10 mL [...] MD [facility] [address] [place], [place] [address] (Wo rk) 06/10/2022 Office Visit Dermatology Laura Scherer MD [facility] DR [address] [place], [place] [address] (Wo rk) documented as of [...] Address City/State/ZIP Code Phon e Number [place], [place] documented in this encounter Visit Diagnoses Diagnosis Pain Generalized pain documented in this encounter Care Teams Propeller Tester Relationship Specialty Start Date End Date Lovely Vicente MD PCP - General 04/16/[address] [place] [address] documented as of this encounter
--- OUTSIDE RECORDS SUMMARY | 2022-03-09 15:25 | XMS_ITS | Encounter Summary ---
:1945 Author Organization [facility] [place] [address] Care Team Providers Name Role Phone Lovely Vicente MD Primary Care Provider Reason for Visit Reason Onset Date Comments VNA Calls 08/30/2017 Encounter Details Date Type Department Care Team Description 08/30/2017 Telephone Vascular Surgery at [facility] Cora Reid RN VNA Calls [facility] [place] [address] Social History Tobacco Use Types Packs/Day [...] 11:16 AM EST Caller: Alfonso at [facility] [phone] Reason for call: Changing his wound vac [...] Alfonso who had been in contact with [facility]'s Wound Care Nurse who advised [...] MD [facility] [address] T[address] [place], [place] [address] (Wo rk) 06/10/2022 Office Visit Dermatology Laura Scherer MD [facility] DR [address] GR[address]MAT [facility] [place] [address] (Wo rk) documented as of this encounter Visit Diagnoses Not on filedocumented in this encounter Care Teams Relationship Specialty Start Date End Date Lovely Vicente MD PCP - General 04/16/[address] [place] [address] documented as of this encounter
--- OUTSIDE RECORDS SUMMARY | 2022-03-09 15:25 | XMS_ITS | Encounter Summary ---
:1945 Author Organization [facility] [place] [address] Care Team Providers Name Role Phone Lovely Vicente MD Primary Care Provider Reason for Visit Reason Comments Follow-up Skin Check Encounter Details Date Type Department Care Team Description 01/06/2018 Office Visit Dermatology at Rigoberto Formantipmirna nevi; Abdelrahman HOOPER MD History of melanoma; [address] [facility] [place] [address] [facility]DERMAT[facility]GY [place], [place] [address] Social History Tobacco Use Types [...] [facility] DR TADEO [place], [place] [address] (Wo rk) 06/10/2022 Office Visit Dermatology Laura Scherer MD [facility] ER DR TEJA GR-DERMAT [facility] [place] [place] [address] (Wo rk) documented as of this encounter Visit Diagnoses Diagnosis Multiple nevi Benign neoplasm of skin, site unspecifie d History of melanoma Personal history of malignant melanoma o f skin Seborrheic keratosis Other seborrheic keratosis documented in this encounter Care Teams Operating Room Assistant Relationship Specialty Start Date End Date Lovely Vicente MD PCP - General 04/16/[address] [place] [address] documented as of this encounter
--- OUTSIDE RECORDS SUMMARY | 2022-03-09 15:25 | XMS_ITS | Encounter Summary ---
:1945 Author Organization [place] [address] Care Team Providers Name Role Phone Lovely Vicente MD Primary Care Provider Reason for Visit Reason Onset Date Comments Other 03/24/2019 cardiac clearance ne eded Encounter Details Date Type Department Care Team Description 03/24/2019 Telephone Cardiology at [facility] Danette Maxwell, Other (cardiac [facility] TRAVEL SERVICE CONSULTANT clearance needed) [place] [address] CARDIOLOGY [place], [place] [address] (Wo rk) Social History Tobacco [...] AM EDT Leonela from [facility] [place] called requesting cardiac clearance for this patient who is to have a colonoscopy on 04/04/19. He is on anticoagulation and they will need to bridge him. Their phone # [phone], fax# [phone]. Thank you. documented in this encounter Plan of Treatment Upcoming Encounters Date Type Specialty Care Team Description 03/26/2022 Office Visit Cardiology Vitaliy Nobles MD [facility] DR [address] [place], [place] [address] (Wo rk) 06/10/2022 Office Visit Dermatology Laura Scherer MD [facility] DR [address] GR-DERMAT [place], [place] [address] (Wo rk) documented as of this encounter Visit Diagnoses Not on filedocumented in this encounter Care Teams Gear Machinist Relationship Specialty Start Date End Date Lovely Vicente MD PCP - General 04/16/[address] [place] [address] documented as of this encounter
--- OUTSIDE RECORDS SUMMARY | 2022-03-09 15:25 | XMS_ITS | Encounter Summary ---
:1945 Author Organization [facility] [place] [address] Care Team Providers Name Role Phone Lovely Vicente MD Primary Care Provider Reason for Visit Reason Comments Skin Check Encounter Details Date Type Department Care Team Description 07/06/2018 Office Visit Dermatology at [facility], Rigoberto Yarbrough (actinic keratosis); MD SHAY Quick III (seborrheic keratosis); [address] [facility] History of melanoma; [place] [address] Skin exam for malignant neoplasm [phone] [facility] [place], [place] [address] Social History Tobacco Use Types [...] had vascular surgery in [facility] while he lost several toes, [...] [facility] ER [address] TAEDO [place], [place] [address] (Wo rk) 06/10/2022 Office Visit Dermatology Laura Scherer MD [facility] [address]DERMAT [place], [place] [address] (Wo rk) documented as of this encounter Visit Diagnoses Diagnosis AK (actinic keratosis) Actinic keratosis SK (seborrheic keratosis) Other seborrheic keratosis History of melanoma Personal history of malignant melanoma o f skin Skin exam for malignant neoplasm Screening for malignant neoplasm of the skin documented in this encounter Care Teams Tobacco Flavorer Relationship Specialty Start Date End Date Lovely Vicente MD PCP - General 04/16/[address] [place] [address] documented as of this encounter
--- OUTSIDE RECORDS SUMMARY | 2022-03-09 15:25 | XMS_ITS | Encounter Summary ---
:1945 [place] [address] Care Team Providers Name Role Phone Lovely Vicente MD Primary Care Provider Encounter Details Date Type Department Care Team Description 07/12/2019 Office Visit Dermatology at [facility], Rigoberto Yarbrough (actinic keratosis); MD SHAY Quick III (seborrheic keratosis); [address] [facility] Multiple benign nevi; [place] [address] History of melanoma [phone] [facility] [place], [place] [address] Social History Tobacco Use Types [...] every evening. 90 tablet 3 ??? ACCU-CHEK TEAR PLUS TEST STRP Strip 2-3 times daily [...] Rigoberto Garcia MD Section of Dermatology [facility] documented in this encounter Plan of Treatment Upcoming Encounters Date Type Specialty Care Team Description 03/26/2022 Office Visit Cardiology Vitaliy Nobles MD [facility] DR T[address] [place], [place] [address] (Wo rk) 06/10/2022 Office Visit Dermatology Laura Scherer MD [facility] [address] [place], [place] [address] (Wo rk) documented as of this encounter Visit Diagnoses Diagnosis AK (actinic keratosis) Actinic keratosis SK (seborrheic keratosis) Other seborrheic keratosis Multiple benign nevi Benign neoplasm of skin, site unspecifie d History of melanoma Personal history of malignant melanoma o f skin documented in this encounter Care Teams Circuit Designer Relationship Specialty Start Date End Date Lovely Vicente MD PCP - General 04/16/[address] [place] [address] documented as of this encounter
--- OUTSIDE RECORDS SUMMARY | 2022-03-09 15:25 | XMS_ITS | Encounter Summary ---
:1945 [place] [address] Care Team Providers Name Role Phone Lovely Vicente MD Primary Care Provider Encounter Details Date Type Department Care Team Description 08/15/2018 Laboratory Appointment Lab [address] [place] [address] Social History Tobacco Use Types Packs/Day [...] MD [facility] [address] [place], [place] [address] (Wo rk) 06/10/2022 Office Visit Dermatology Laura Scherer MD [facility] [address] [place]LOG[place], [place] [address] (Wo rk) documented as of this encounter Procedures Procedure Name Priority Date/Time Associated Diagnosis Comme nts PROTHROMBIN TIME Routine 08/15/2018 8:04 AM Resul ts for this EST procedure are i n the results section. documented in this encounter Results (ABNORMAL) Prothrombin Time (08/15/2018 8:04 AM EST) P athologist Signature PT 24.0 (H) 9.4 - 12.5 [facility] LABORATORY INR 2.1 [facility] [...] City/State/[place] [address] documented in this encounter Visit Diagnoses Not on filedocumented in this encounter Care Teams Consumer Education Specialist Relationship Specialty Start Date End Date Lovely Vicente MD PCP - General 04/16/[address] [place] [address] documented as of this encounter
--- OUTSIDE RECORDS SUMMARY | 2022-03-09 15:25 | XMS_ITS | Encounter Summary ---
:1945 Author Organization [facility] [address] Care Team Providers Name Role Phone Lovely Vicente MD Primary Care Provider Encounter Details Date Type Department Care Team Description 07/28/2019 Office Visit Cardiology at [facility] Danette Maxwell Chronic systolic heart failu re; [facility] A, STACIE ASHD (arteriosclerotic heart disease); Drive [facility] S/P CABG x 3; [place], [place] MARIA VICTORIA (obstructive sleep apnea) on CPAP; [phone] CARDIOLOGY Mixed hyperlipidemia [phone] [place], [place] [address] Social History Tobacco Use Types [...] in this encounter Progress Notes Danette Maxwell, ORDER BOOKER - 07/28/2019 9:40 AM EST Images from [...] regurgitation present. 07/07/2019 - 07/21/2019 Zio Patch Electro Mechanical Technician The patient had a minimum heart [...] K+ 4.5 today 6. Post-op atrial fibrillation [id number] (CHF, HTN, DM, vascular disease, thromboembolism) Amiodarone discontinued Continue coumadin INR managed by PCP 7. PAD 08/06/2017: Right 1st, 2nd, 3rd toe amputation 08/11/2017: Left??femoral arterial access, RLE??angiogram, Balloon angioplasty of R PT with Eleazar 2.5 x 80 10/25/2017: right popliteal-pedal bypass at [facility] 8. Hypothyrodism S/p thyroidectomy for goiter [...] advised: Refer to EP (Dr. Mcelroy in [place]) 5. Heart Failure Clinic follow up scheduled for: 3 months with proBNP and BMP Danette Maxwell APRN 07/28/2019 documented in this encounter Plan of Treatment Upcoming Encounters Date Type Specialty Care Team Description 03/26/2022 Office Visit Cardiology Vitaliy Nobles MD [facility] ER [address] [place], [place] [address] (Wo rk) 06/10/2022 Office Visit Dermatology Laura Scherer MD [facility] DR [address] [place], [place] [address] (Wo rk) documented as of this encounter Results (ABNORMAL) Basic Metabolic Panel (non-fasting) (07/28/2019 8:36 AM EST) athologist Signature Glucose Lvl 153 65 - 199 [facility] mg/dL [facility] LABORATORY Comment: Diabetes: >=200 mg/dL plus [...] of body mass or the acutely ill. http://tinyurl.com/[facility] eGFR 81 >=60 mL/min/1.73 m?? [facility] LABORATORY Comment: The eGFR was calculated using the CKD-EP I equation. As with all creatinine based estimates of kidney function, eGFR values calculated with the CKD-EPI equation are not accurate in patients wi th acute kidney failure, extremes of body mass or the acutely ill. http://[employer]/[facility]kf Specimen Anatomical Collection Method Collection Time Receive d Time (Source) Location / / Volume Laterality Blood specimen 07/28/2019 8:36 AM 020 8:46 (specimen) EST AM EST Resulting Agency Comment Spec In Lab Danette Maxwell STACIE CHEMISTRY ORDERABLES Performing Organization Address City/State/ZIP [place] [address] (ABNORMAL) pro-Brain Natriuretic Peptide [...] Organization Address City/State/ZIP [place] [address] documented in this encounter Visit Diagnoses Diagnosis Chronic systolic heart failure ASHD (arteriosclerotic heart disease) Coronary atherosclerosis of unspecified type of vessel, chenega or graft S/P CABG x 3 Postsurgical aortocoronary bypass status MARIA VICTORIA (obstructive sleep apnea) on CPAP Obstructive sleep apnea (adult) (pediatr ic) Mixed hyperlipidemia documented in this encounter Care Teams Electric Tool Repairer Relationship Specialty Start Date End Date Lovely Vicente MD PCP - General 04/16/[address] [place] [address] documented as of this encounter
--- OUTSIDE RECORDS SUMMARY | 2022-03-09 15:25 | XMS_ITS | Encounter Summary ---
:1945 Author Organization [facility] [place] [address] Care Team Providers Name Role Phone Lovely Vicente MD Primary Care Provider Encounter Details Date Type Department Care Team Description 09/16/2017 [place] [address] Social History Tobacco Use Types Packs/Day [...] assist with pain control with dressing change meTOPROLOL succinate Take 25 mg by mouth [...] MD [facility] DR [address] [place], [place] [address] (Wo rk) 06/10/2022 Office Visit Dermatology Laura Scherer MD [facility] DR [address]MAT OLOG[address] [place], [place] [address] (Wo rk) documented as of this encounter Procedures Procedure Name Priority Date/Time Associated Diagnosis Comme [facility] SURGICAL PATHOLOGY Routine 09/16/2017 7:28 AM Res ults for this REPORT EST procedure are i n the results section. documented in this encounter Results Surgical Pathology Report (09/16/2017 7:28 AM EST) Component Value Ref Test Analysis Performed At [facility] Method Time Signature Surgical [id number] ? Location: [facility] Pathology DAMASCUS Report The signing pathologist has (i) examined [...] Henrique Flower Verified: ??09/24/2017 ?Pathologist Performed at: ??[facility] Dept. of Pathology, [place], [place] CLINICAL INFORMATION Specimen Submitted: A - [...] Address City/State/ZIP Code Phon e Number [address] LABORATORY [facility] documented in this encounter Visit Diagnoses Not on filedocumented in this encounter Care Teams Information Technology Auditor Relationship Specialty Start Date End Date Lovely Vicente MD PCP - General 04/16/[address] [place] [address] documented as of this encounter
--- OUTSIDE RECORDS SUMMARY | 2022-03-09 15:25 | XMS_ITS | Encounter Summary ---
:1945 Author Organization [facility] Address [facility] [place] [address] Care Team Providers Name Role Phone Lovely Vicente MD Primary Care Provider Reason for Referral Diagnostic Test (Routine) - Specialty Diagnoses / Procedures Referred By Contact Refer red To Contact Cardiology Diagnoses Chronic systolic heart failure Danette Maxwell APRN [facility] Non-Inv Card Lab Procedures Echocardiogram Transthoracic(Leb) [facility] [place] [address] [place] [address] Referral ID Status Reason Start Date Expiration Visits Visits Date Requested Authorized [id number] Specialty 08/15/2018 08/15/2018 1 1 Service Requested Encounter Details Date Type Department Care Team Description 04/18/2018 Office Visit Cardiology at [facility] Danette Maxwell Chronic systolic heart failu re; [facility] STACIE Gomes On amiodarone therapy; [facility] Ischemic cardiomyopathy; [place], [place] DR ONOFRE (arteriosclerotic cardiovascular d isease) [phone] CARDIOLOGY [phone] [place], [place] [address] Social History Tobacco Use Types Packs/Day Years [...] in this encounter Progress Notes Danette Maxwell, PATIENT MONITOR - 04/18/2018 10:40 AM EDT ID and [...] x 80 10/25/2017: right popliteal[facility]ped[facility] bypass at [facility] ? Plan: 1. A review of the [...] Vitaliy Nobles MD [facility] CARDIOLOGY [place], [place] [address] (Wo rk) 06/10/2022 Office Visit Dermatology Laura Scherer MD [facility] [address] [place] [address] (Wo rk) documented as of this encounter Results ECHOCARDIOGRAM COMPLETE W CONTRAST (08/15/2018 7:55 AM EST) P athologist Signature EF 35 HEARTLAB SYSTEM Specimen (Source) Anatomical Location Collection Method / Collectio n Time Received Time / Laterality Volume 08/15/2018 Narrative HEART[facility] SYSTEM - 08/15/2018 8:18 AM EST Procedure: ?Transthoracic Echocardiogram Patient: ?NATALYA Mccollum ? (Age): 1945(73y) Med Rec#: ? [id number] ?Sex: ?M ? Site Loc: ? [facility] ?Ht / Wt: ??172(cm)/81(kg) Pt. Loc: ?Echo Lab ?BSA: ?1.94 Study Date: ?? 08/15/2018 ?Pt. Type: Outpatient Tape: ? Referring: MARY ELLEN Reading: Scott Ortega ([id number]) Medical Billing Associate: Laura Sargent Diagnosis: *Chronic systolic (congestive) heart [...] E-wave Vmax ?1.2 ?m/sec ? MV deceleration vykr693.4 ? msec ? MV A-wave Vmax ?0.7 [...] ? Mid-Inferior ?Hypokinetic ? Mid-Inferoseptal ?Hypokinetic ? [place]-Septal ? Akinetic ? [place]-Anterior ? Hypokinetic ? [place]-Lateral ?Akinetic ? [place]-Inferior ? Hypokinetic ? [place]-Tip ?Akinetic ? This report has been electronically sign ed by: _ Scott Ortega M.D. ? 08/15/2018 08:17:26 Images reviewed and interpretation elvie hwang [facility] Cardiac Ultrasound Laboratory Procedure Note Scott Ortega MD - 08/15/2018Format ting of this note might be different from the original. Procedure: Transthoracic Echocardiogram Patient: NATALYA MCBRIDE(Age): [birth year]73y) [facility] Rec#: [id number] Sex: M Site Loc: [facility] Ht / Wt: 172(cm)/81(kg) Pt. Loc: Echo Lab BSA: 1.94 Study Date: 08/15/2018 Pt. Type: Outpati ent Tape: Referring: MARY ELLEN Reading: Scott Ortega ([id number]) Medical Billing Associate: Laura Sargent Diagnosis: *Chronic systolic (congestive) heart [...] MV E-wave Vmax 1.2 m/sec MV deceleration qmhd614.4 msec MV A-wave Vmax 0.7 m/sec MV [...] Akinetic Mid-Posterolateral Akinetic Mid-Inferior Hypokinetic Mid-Inferoseptal Hypokinetic [place]-Septal Akinetic [place]-Anterior Hypokinetic [place]-Lateral Akinetic [place]-Inferior Hypokinetic [place]-Tip Akinetic This report has been electronically sign ed by: _ Scott Ortega M.D. 08/15/2018 08:17: 26 Images reviewed and interpretation elvie ludwigd [facility] Cardiac Ultrasound Laboratory Danette Maxwell APRN ECHO ORDERABLES Performing Organization Address City/State/ZIP Code Phon e Number HEARTLAB SYSTEM (ABNORMAL) Basic Metabolic Panel (non-fasting) (04/18/2018 9:19 AM EDT) P athologist Signature Glucose Lvl 167 65 - 199 [facility] mg/dL [facility] [...] Gap 23 (H) 5 - 15 mmol/L [facility] [...] of body mass or the acutely ill. http://Breeze/DHMCnkf eGFR 70 >=60 mL/min/1.73 m?? [facility] LABORATORY Comment: The eGFR was calculated using the CKD-EP I equation. As with all creatinine based estimates of kidney function, eGFR values calculated with the CKD-EPI equation are not accurate in patients wi th acute kidney failure, extremes of body mass or the acutely ill. http://Breeze/DHMCnkf Specimen Anatomical Collection Method Collection Time Receive d Time (Source) Location / / Volume Laterality Blood specimen 04/18/2018 9:19 AM 018 9:34 (specimen) EDT AM EDT Resulting Agency Comment Spec In Lab Danette Eliseo [place] STACIE CHEMISTRY ORDERABLES Performing Organization Address City/State/ZIP Code Phon e Number [address] (ABNORMAL) pro-Brain Natriuretic Peptide (04/18/2018 9:19 AM EDT) P athologist Signature ProBNP 2,199 (H) <=[address] [facility] pg/mL [facility] LABORATORY Specimen Anatomical Collection Method Collection Time Receive d Time (Source) Location / / Volume Laterality Blood specimen 04/18/2018 9:19 AM 018 9:34 (specimen) EDT AM EDT Resulting Agency Comment Spec In Lab Danette Eliseo Hans QUINONES CHEMISTRY ORDERABLES Performing Organization Address City/[facility]/[place] [address] documented in this encounter Visit Diagnoses Diagnosis Chronic systolic heart failure On amiodarone therapy Ischemic cardiomyopathy Other specified forms of chronic ischemi c heart disease ASCVD (arteriosclerotic cardiovascular d isease) Unspecified cardiovascular disease Chronic systolic heart failure documented in this encounter Care Teams Computer Operator Relationship Specialty Start Date End Date Lovely Vicente MD PCP - General 04/16/[address] [place] [address] documented as of this encounter
--- OUTSIDE RECORDS SUMMARY | 2022-03-09 15:25 | XMS_ITS | Encounter Summary ---
:1945 Author Organization [facility] [place] [address] Care Team Providers Name Role Phone Lovely Vicente MD Primary Care Provider Encounter Details Date Type Department Care Team Description 08/15/2018 Laboratory Lab 3L [place] Chronic systoli c heart failure; Appointment [facility] ASCVD (ar teriosclerotic cardiovascular disease) [place] [address] Social History Tobacco Use Types [...] Nobles MD [facility] ER DR TADEO [place], [place] [address] (Wo rk) 06/10/2022 Office Visit Dermatology Laura Scherer MD [facility] DR [address]MAT OLOGY [place], [place] [address] (Wo rk) documented as [...] Signature Glucose Lvl 116 65 - 199 [facility] mg/dL [facility] LABORATORY Comment: Diabetes: >=200 mg/dL plus symp toms BUN 21 (H) 10 - 20 mg/dL [facility] LABORATORY Creatinine 1.08 0.80 - 1.50 mg/dL [facility] [...] 15 mmol/L [facility] LABORATORY Calcium 9.0 8.5 - 10.5 mg/dL [facility] LABORATORY Estimated GFR 68 >=60 mL/min/1.73 m?? [facility] LABORATORY Comment: The eGFR was calculated using the CKD-EP I equation. As with all creatinine based estimates of kidney function, eGFR values calculated with the CKD-EPI equation are not accurate in patients wi th acute kidney failure, extremes of body mass or the acutely ill. http://Qwikwire/DHMCnkf eGFR 79 >=60 mL/min/1.73 m?? [facility] LABOR[facility] Comment: The eGFR was calculated using the CKD-EP I equation. As with all creatinine based estimates of kidney function, eGFR values calculated with the CKD-EPI equation are not accurate in patients wi th acute kidney failure, extremes of body mass or the acutely ill. http://Qwikwire/DHMCnkf Specimen Anatomical Collection Method Collection Time Receive d Time (Source) Location / / Volume Laterality Blood specimen 08/15/2018 8:04 AM 019 8:20 (specimen) EST AM EST Resulting Agency Comment Spec In Lab Danettebrock Maxwell APRN CHEMISTRY ORDERABLES Performing Organization Address City/State/[place] [address] Lipid Panel (08/15/2018 8:04 AM EST) P athologist Signature Chol, Total 75 mg/dL [facility] LAB[facility] Comment: Lower Risk: <200 mg/dL Average Risk: 200-239 mg/dL Higher Risk: >oj=669 mg/dL Triglycerides 185 mg/dL [facility] LABORATORY Comment: Average Risk/Lower Risk: <150 mg/dL Borderline High Risk: 150-199 mg/dL High Risk: 200-499 mg/dL Very High Risk: >qu=521 mg/dL HDL 32 mg/dL [facility] LABORATORY Comment: Males: ?? Higher Risk: <40 mg/dL Females: ?? HIgher Risk: <50 mg/dL LDL Cholesterol 6 mg/dL [facility] LABOR[facility] Comment: Lowest Risk: <100 mg/dL Lower Risk: 100-129 mg/dL Borderline High Risk: 130-159 mg/dL High Risk: 160-189 mg/dL Very High Risk: >zp=129 mg/dL Chol/HDL Ratio 2.3 ratio [facility] LABOR[facility] Lipid Interpretation See Note [facility] LABORATORY Comment: Lipid management should be guided by a p atient? s ASCVD risk, goals and preferences. ACC/AHA Guidelines recommend high intens ity statin if clinical ASCVD or LDL greater than or equal to 190 mg/dL. http://tinyurl.com/WEK-YMX-Gccefxesg Adults aged 40-75 with LDL 70-189 mg/dL should have their 10 year ASCVD risk estimated with the ACC/AHA ASCVD risk es timator http://tools.acc.org/AZINV-Zpob-Jajkpsir r/ Statin should be discussed if risk [...] Agency Comment Spec In Lab Danette Maxwell PERFECT BINDER SETTER CHEMISTRY ORDERABLES Performing Organization Address City/State/[place] [address] (ABNORMAL) pro-Brain Natriuretic Peptide (08/15/2018 8:04 AM EST) P athologist Signature ProBNP 1,797 (H) <=125 [facility] pg/mL [facility] LABORATORY Specimen Anatomical Collection Method Collection Time Receive d Time (Source) Location / / Volume Laterality Blood specimen 08/15/2018 8:04 AM 019 8:20 (specimen) EST AM EST Resulting Agency Comment Spec In Lab Danette Maxwell APRN CHEMISTRY ORDERABLES Performing Organization Address City/State/[place] [address] documented in this encounter Visit Diagnoses Diagnosis Chronic systolic heart failure ASCVD (arteriosclerotic cardiovascular d isease) Unspecified cardiovascular disease documented in this encounter Care Teams Chemical Compounder Relationship Specialty Start Date End Date Lovely Vicente MD PCP - General 04/16/[address] [place] [address] (work) documented as of this encounter
--- OUTSIDE RECORDS SUMMARY | 2022-03-09 15:25 | XMS_ITS | Encounter Summary ---
:1945 Author Organization [facility] [place] [address] Care Team Providers Name Role Phone Lovely Vicente MD Primary Care Provider Reason for Referral Diagnostic Test (Routine) - Specialty Diagnoses / Procedures Referred By Contact Refer red To Contact Cardiology Diagnoses Chronic systolic heart failure Danette Maxwell APRN [facility] Non-Inv Card Lab Procedures Echocardiogram Transthoracic(Leb) [facility] [place] [phone] [place] [address] Referral ID Status Reason Start Date Expiration Visits Visits Date Requested Authorized [id number] Specialty 08/15/2018 08/15/2018 1 1 Service Requested Reason for Visit Diagnostic Test (Routine) - Specialty Diagnoses / Procedures Referred By Contact Nawaf owen To Contact Cardiology Diagnoses Chronic systolic heart failure Danette Maxwell APRN [facility] Non-Inv Card Lab Procedures Echocardiogram Transthoracic(Leb) [facility] [place] [address] [place] [address] Referral ID Status Reason Start Date Expiration Visits Visits Date Requested Authorized [id number] Specialty 08/15/2018 08/15/2018 1 1 Service Requested Encounter Details Date Type Department Care Team Description 08/15/2018 Hospital Encounter Non-Invasive Danette Maxwell Chron ic systolic Cardiology Lab Barbara Gomes APRN heart failure [facility] [place] [address] [place], [place] [phone] (Work) [phone] Social History Tobacco Use Types Packs/Day Years [...] mg mouth as needed. Tablet Sustained Release meTOPROLOL succinate Take 25 mg by mouth [...] Nobles MD [facility] CARDIOLOGY [place], [place] [address] (Wo rk) 06/10/2022 Office Visit Dermatology aLura Scherer MD [facility] [address] [place], [place] [address] (Wo rk) documented as of [...] Echocardiogram Patient: ?NATALYA GORMANRY E ? (Age): 1945(73y) Med Rec#: ? [id number] ?Sex: ?M ? Site Loc: ? [facility] ?Ht / Wt: ??172(cm)/81(kg) Pt. Loc: ?Echo Lab ?BSA: ?1.94 Study Date: ?? 08/15/2018 ?Pt. Type: Outpatient Tape: ? Referring: MARY ELLEN Reading: Scott Ortega ([id number]) Religious Leader: Laura Sargent Diagnosis: *Chronic systolic (congestive) heart [...] E-wave Vmax ?1.2 ?m/sec ? MV deceleration hmeq681.4 ? msec ? MV A-wave Vmax ?0.7 [...] ? Mid-Inferior ?Hypokinetic ? Mid-Inferoseptal ?Hypokinetic ? [place]-Septal ? Akinetic ? [place]-Anterior ? Hypokinetic ? [place]-Lateral ?Akinetic ? [place]-Inferior ? Hypokinetic ? [place]-Tip ?Akinetic ? This report has been electronically sign ed by: _ Scott Ortega M.D. ? 08/15/2018 08:17:26 Images reviewed and interpretation elvie wanda [facility] Cardiac Ultrasound Laboratory Procedure Note Scott Ortega MD - 08/15/2018Format ting of this note might be different from the original. Procedure: Transthoracic Echocardiogram Patient: NATALYA MCBRIDE(Age): [birth year]73y) Med Rec#: [id number] Sex: M Site Loc: [facility] Ht / Wt: 172(cm)/81(kg) Pt. Loc: Echo Lab BSA: 1.94 Study Date: 08/15/2018 Pt. Type: Outpati ent Tape: Referring: MARY ELLEN Reading: Scott Ortega ([id number]) Religious Leader: Laura Sargent Diagnosis: *Chronic systolic (congestive) heart [...] MV E-wave Vmax 1.2 m/sec MV deceleration ulez612.4 msec MV A-wave Vmax 0.7 m/sec MV [...] Akinetic Mid-Posterolateral [place]kinetic Mid-Inferior Hypokinetic Mid-Inferoseptal Hypokinetic [place]-Septal Akinetic [place]-Anterior Hypokinetic [place]-Lateral Akinetic [place]-Inferior Hypokinetic [place]-Tip Akinetic This report has been electronically sign ed by: _ Scott Ortega M.D. 08/15/2018 08:17: 26 Images reviewed and interpretation verif ied [facility] Cardiac Ultrasound Laboratory Danette Maxwell DIGITIZER OPERATOR ECHO ORDERABLES Performing Organization Address City/State/ZIP Code [...] Routine documented in this encounter Care Teams Lacrosse Coach Relationship Specialty Start Date End Date Lovely Vicente MD PCP - General 04/16/[address] [place] [address] [address] [place] [address] documented as of this encounter
--- OUTSIDE RECORDS SUMMARY | 2022-03-09 15:25 | XMS_ITS | Encounter Summary ---
:1945 Author Organization [facility] [place] [address] Care Team Providers Name Role Phone Lovely Vicente MD Primary Care Provider Encounter Details Date Type Department Care Team Description 11/29/2017 Hospital Encounter Vascular Lab at Jan[facility] PAD (peripheral [facility], RVT artery [facility] [place] [phone] Social History Tobacco Use Types Packs/Day Years [...] MD [facility] [address] [place], [place] 0[address] (Wo rk) 06/10/2022 Office Visit Dermatology Laura Scherer MD [facility] DR [address] [place], [place] 0[address] (Wo rk) documented as of this encounter Procedures Procedure Name Priority Date/Time Associated Diagnosis Comme nts ARTERIAL DUPLEX LEG Routine 11/29/2017 10:32 AM PAD (periphera l Results for this UNILA EDT artery disease) procedure ar e in the results section. documented in this encounter Results Arterial Duplex Leg, Unil (11/29/2017 10:32 AM EDT) Component Value Ref Test Analysis Performed At [facility] Range Method Time Signature VB Text Department: Vascular Surgery Lab VASCUBASE Report Patient: [id number] (DON HOANG) CPT: 21678 ICD10: I72.4;I73.9 Referring Physician: DANETTE MAXWELL ?? [...] unspecified documented in this encounter Care Teams Show Host Relationship Specialty Start Date End Date Lovely Vicente MD PCP - General 04/16/[address] [place] [address] documented as of this encounter
--- OUTSIDE RECORDS SUMMARY | 2022-03-09 15:25 | XMS_ITS | Encounter Summary ---
:1945 Author Organization [facility] [place] [address] Care Team Providers Name Role Phone Lovely Vicente MD Primary Care Provider Reason for Referral Diagnostic Test (Routine) - Closed Specialty Diagnoses / Procedures Referred By Contact Refer red To Contact Cardiology Diagnoses Ischemic cardiomyopathy Acute on chronic systolic congestive heart failure Danette Maxwell APRN [facility] Non-Inv Card Lab Procedures Echocardiogram Transthoracic(Leb) [facility] [place] [address] [place] [address] Referral ID Status Reason Start Date Expiration Date Visits V isits Requested Authorized [id number] Closed Specialty 08/30/2017 08/30/2018 1 1 Service Requested Reason for Visit Diagnostic Test (Routine) - Closed Specialty Diagnoses / Procedures Referred By Contact Refer red To Contact Cardiology Diagnoses Ischemic cardiomyopathy Acute on chronic systolic congestive heart failure Danette Maxwell APRN [facility] Non-Inv Card Lab Procedures Echocardiogram Transthoracic(Leb) [facility] [place] [address] [place] [address] Referral ID Status Reason Start Date Expiration Date Visits V isits Requested Authorized [id number] Closed Specialty 08/30/2017 08/30/2018 1 1 Service Requested Encounter Details Date Type Department Care Team Description 10/07/2017 Hospital Encounter Non-Invasive Ischemic cardiomyopathy; Cardiology Lab Barbara Craig on chronic systolic [place] [address] Social History Tobacco Use Types Packs/Day [...] Visit Cardiology Vitaliy Nobles MD [facility] ER CARDIOLOGY [place], [place] [address] (Wo rk) 06/10/2022 Office Visit Dermatology Laura Scherer MD [facility] ER [address] [place] [address] (Wo rk) documented as of this encounter [...] Mccollum ? (Age): 1945(72y) Med Rec#: ? [id number] ?Sex: ?M ? Site Loc: ? [facility] ?Ht / Wt: ??173(cm)/82(kg) Pt. Loc: ?Echo Lab ?BSA: ?1.96 Study Date: ?? 10/07/2017 ?Pt. Type: Outpatient Tape: ? Referring: Danette Maxwell Reading: Iker Cuevas ([id number]) Criminal Intelligence Specialist: Yonathan Bocanegra Diagnosis: *ICD-10-PCS Ischemic cardiomyopathy [...] E-wave Vmax ?1.2 ?m/sec ? MV deceleration uffi069 ?msec ? MV A-wave Vmax ?1 ?m/sec [...] ? Mid-Inferior ?Hypokinetic ? Mid-Inferoseptal ?Hypokinetic ? [place]-Septal ? Akinetic ? [place]-Anterior ? Hypokinetic ? [place]-Lateral ?Hypokinetic ? [place]-Inferior ? Hypokinetic ? [place]-Tip ?Akinetic ? This report has been electronically sign ed by: _ Iker Cuevas M.D. ? 10/07/2017 11:12:34 Images reviewed and interpretation verif ied [facility] Cardiac Ultrasound Laboratory Procedure Note Iker Cuevas MD - 10/07/2017Formatti ng of this note might be different from the original. Procedure: Transthoracic Echocardiogram Patient: NATALYA MCBRIDE(Age): [birth year]72y) Med Rec#: [id number] Sex: M Site Loc: [facility] Ht / Wt: 173(cm)/82(kg) Pt. Loc: Echo Lab BSA: 1.96 Study Date: 10/07/2017 Pt. Type: Outpati ent Tape: Referring: Danette Maxwell Reading: Iker Ceuvas ([id number]) Criminal Intelligence Specialist: Yonathan Bocanegra Diagnosis: *ICD-10-PCS Ischemic cardiomyopathy [...] MV E-wave Vmax 1.2 m/sec MV deceleration [id number] msec MV A-wave Vmax 1 m/sec MV [...] Akinetic Mid-Posterolateral Hypokinetic Mid-Inferior Hypokinetic Mid-Inferoseptal Hypokinetic [place]-Septal Akinetic [place]-Anterior Hypokinetic [place]-Lateral Hypokinetic [place]-Inferior Hypokinetic [place]-Tip Akinetic This report has been electronically sign ed by: _ Iker Cuevas M.D. 10/07/2017 11:12 :34 Images reviewed and interpretation elvie hwang [facility]iac Ul[facility]ound Laboratory Danette Gomes [place] STACIE ECHO ORDERABLES Performing Organization Address City/State/ZIP [...] Routine documented in this encounter Care Teams Pillowcase Sewer Relationship Specialty Start Date End Date Lovely Vicente MD PCP - General 04/16/[address] [place] [address] documented as of this encounter
--- OUTSIDE RECORDS SUMMARY | 2022-03-09 15:25 | XMS_ITS | Encounter Summary ---
:1945 Author Organization [facility] [place] [address] Care Team Providers Name Role Phone Lovely Vicente MD Primary Care Provider Encounter Details Date Type Department Care Team Description 10/05/2017 Telephone Cardiology at [facility] Tamiko Sin MD [facility] [place] [address] CARDIOLOGY DEPT [phone] [place], [place] [address] (Wo rk) Social History [...] Vitaliy Nobles MD [facility] ER DR [place]LE [place], [place] [address] (Wo rk) 06/10/2022 Office Visit Dermatology Laura Scherer MD [facility] [address] [place] [place], [place] [address] (Wo rk) documented as of this encounter Visit Diagnoses Not on filedocumented in this encounter Care Teams Residential Property Manager Relationship Specialty Start Date End Date Lovely Vicente MD PCP - General 04/16/[address] [place] [address] [address] [facility] [address] [place] [address] documented as of this encounter
--- OUTSIDE RECORDS SUMMARY | 2022-03-09 15:25 | XMS_ITS | Encounter Summary ---
:1945 Author Organization [facility] [place] [address] Care Team Providers Name Role Phone Lovely Vicente MD Primary Care Provider Encounter Details Date Type Department Care Team Description 09/07/2017 Office Visit Endocrinology at [facility] Maria Ines Stallings of [facility] [place] [address] CENTER [phone] ENDOCRINOLOGY DEPT [place], [place] [address] Social History Tobacco Use [...] [facility] ER [address] TADEO [place], [place] [address] (Wo rk) 06/10/2022 Office Visit Dermatology Laura Scherer MD [facility] [address] [place], [place] [address] (Wo rk) documented as of this encounter Visit Diagnoses Diagnosis Hx of papillary thyroid carcinoma Personal history of malignant neoplasm o f thyroid documented in this encounter Care Teams Cloth Layer Relationship Specialty Start Date End Date Lovely Vicente MD PCP - General 04/16/[address] [place] [address] documented as of this encounter
--- OUTSIDE RECORDS SUMMARY | 2022-03-09 15:25 | XMS_ITS | Encounter Summary ---
:1945 Author Organization [place] [address] Care Team Providers Name Role Phone Lovely Vicente MD Primary Care Provider Encounter Details Date Type Department Care Team Description 11/29/2017 Office Visit Cardiology at [facility] Annette Maxwell Chronic systolic congestive heart failure; [facility] A, DIRECTOR COMPLIANCE ASCVD (arteriosclerotic cardiovascular d isease); [facility] Cardiomyopathy, ischemic; [place], [place] PAD (peripheral artery disease) [phone] CARDIOLOGY [phone] [place], [place] [address] Social History Tobacco Use Types [...] in this encounter Progress Notes Annette Maxwell, DIRECTOR COMPLIANCE - 11/29/2017 9:20 AM EDT ID and [...] 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 [...] using left greater saphenous vein (done at [facility]), debridement of right foot [...] x 80 10/25/2017: right popliteal-pedal bypass at [facility] ? Plan: 1. A review [...] MD [facility] [address] [place], [place] [address] (Wo rk) 06/10/2022 Office Visit Dermatology Laura Scherer MD [facility] DR [address] [place] [place], [place] [address] (Wo rk) documented as of this encounter Results Arterial Duplex Leg, Unil (11/29/2017 10:32 AM EDT) Component Value Ref Test Analysis Performed At [facility] Range Method Time Signature VB Text Department: Vascular Surgery Lab VASCUBASE Report Patient: [id number] (GREGORY HOANG) CPT: 69252 ICD10: I72.4;I73.9 Referring Physician: ANNETTE MAXWELL ?? [...] 217 (H) 65 - 199 [facility] mg/dL [facility] Comment: Diabetes: >=200 mg/dL plus symp toms BUN 26 (H) 10 - 20 mg/dL [facility] Creatinine 0.96 0.80 - 1.50 mg/dL [facility] Sodium 137 135 - 145 [...] [facility] Estimated GFR >60 >=60 [facility] Comment: The reported eGFR should be multiplied b y 1.2 for patients. The MDRD is not an appropriate measure o f renal function for patients with body mass extremes or in patients with acute kidney failure. http://[employer] [place]/DHnkdep http://Richard Pauer - 3P/DHMCnkf Specimen Anatomical Collection Method Collection Time Receive d Time (Source) Location / / Volume Laterality Blood specimen 11/29/2017 8:22 AM 018 8:29 (specimen) EDT AM EDT Resulting Agency Comment Spec In Lab Annette Maxwell APRN CHEMISTRY ORDERABLES Performing Organization Address City/State/[place] [address] (ABNORMAL) pro-Brain Natriuretic Peptide (11/29/2017 8:22 AM EDT) athologist Signature ProBNP 1,769 (H) <=125 [facility] pg/mL [facility] Specimen Anatomical Collection Method Collection Time Receive d Time (Source) Location / / Volume Laterality Blood specimen 11/29/2017 8:22 AM 018 8:29 (specimen) EDT AM EDT Resulting Agency Comment Spec In Lab Annette Maxwell STACIE CHEMISTRY ORDERABLES Performing Organization Address City/State/[place] [address] documented in this encounter Visit Diagnoses Diagnosis Chronic systolic congestive heart failur e Chronic systolic heart failure ASCVD (arteriosclerotic cardiovascular d isease) Unspecified cardiovascular disease Cardiomyopathy, ischemic Other specified forms of chronic ischemi c heart disease PAD (peripheral artery disease) Peripheral vascular disease, unspecified documented in this encounter Care Teams Olap Developer Relationship Specialty Start Date End Date Lovely Vicente MD PCP - General 04/16/[address] [place] [address] documented as of this encounter
--- OUTSIDE RECORDS SUMMARY | 2022-03-09 15:25 | XMS_ITS | Encounter Summary ---
:1945 Author Organization [facility] [place] [address] Care Team Providers Name Role Phone Lovely Vicente MD Primary Care Provider Reason for Referral Diagnostic Test (Routine) - Closed Specialty Diagnoses / Procedures Referred By Contact Refer red To Contact Cardiology Diagnoses Chronic systolic heart failure Danette Maxwell APRN [facility] Non-Inv Card Lab Procedures Echocardiogram Transthoracic(Leb) [facility] [place] [address] [place] [address] Referral ID Status Reason Start Date Expiration Date Visits V isits Requested Authorized [id number] Closed Specialty 07/17/2019 09/14/2019 1 1 Service Requested Reason for Visit Diagnostic Test (Routine) - Closed Specialty Diagnoses / Procedures Referred By Contact Refer red To Contact Cardiology Diagnoses Chronic systolic heart failure Danette Maxwell APRN [facility] Non-Inv Card Lab Procedures Echocardiogram Transthoracic(Leb) [facility] [place] [address] [place] [address] Referral ID Status Reason Start Date Expiration Date Visits V isits Requested Authorized [id number] Closed Specialty 07/17/2019 09/14/2019 1 1 Service Requested Encounter Details Date Type Department Care Team Description 07/28/2019 Hospital Encounter Non-Invasive Chronic s ystolic heart [place] [address] Social History Tobacco Use Types Packs/Day [...] gauge x 4 times daily. 16 Needle acetaminophen Take 2 tablets by 0 11/02/2017 07/0 01/2022 (TYLENOL) 650 mg mouth as needed. Tablet Sustained Release ferrous sulfate 325 mg Take 325 mg by mouth 0 11/07/2019 (65 mg iron) Tablet daily (with breakfast). meTOPROLOL succinate Take 25 mg by mouth 0 03/06/2022 (TOPROL-XL) 25 mg daily. 0.5 tablet of Tablet Sustained 50 mg Release 24 hr insulin lispro Inject 11 Units 10 mL [...] Nobles MD [facility] [address] [place], [place] [address] (Wo rk) 06/10/2022 Office Visit Dermatology Laura Scherer MD [facility] DR [address] [place], [place] [address] (Wo rk) documented [...] Mccollum ? (Age): 1945(74y) Med Rec#: ? [id number] ?Sex: ?M ? Site Loc: ? [facility] ?Ht / Wt: ??172(cm)/81(kg) Pt. Loc: ?Echo Lab ?BSA: ?1 Study Date: ?? 07/28/2019 ?Pt. Type: Outpatient Tape: ? Referring: MARY ELLEN Reading: Ifeanyi Truong ([id number]) Newsagent: Fadumo Flanagan RDCS, FASE Diagnosis: *Chronic systolic [...] E-wave Vmax ?1 ?m/sec ? MV deceleration nttb512.5 ? msec ? MV A-wave Vmax ?1 [...] ? Mid-Inferior ?Hypokinetic ? Mid-Inferoseptal ?Normal ? [place]-Septal ? Normal ? [place]-Anterior ? Hypokinetic ? [place]-Lateral ?Normal ? [place]-Inferior ? Akinetic ? [place]-Tip ?Hypokinetic ? This report has been electronically sign ed by: _ Ifeanyi Truong M.D. ? 07/28/2019 0 8:38:01 Images reviewed and interpretation verif iewanda [facility] Cardiac Ultrasound Laboratory Procedure Note Ifeanyi Truong MD - 07/28/2019Formatt ing of this note might be different from the original. Procedure: Transthoracic Echocardiogram Patient: NATALYA MCBRIDE(Age): [birth year]74y) Med Rec#: [id number] Sex: M Site Loc: [facility] Ht / Wt: 172(cm)/81(kg) Pt. Loc: Echo Lab BSA: 1.94 Study Date: 07/28/2019 Pt. Type: Outpati ent Tape: Referring: MARY ELLEN Reading: Ifeanyi Truong ([id number]) Newsagent: Fadumo Flanagan RDCS, REGINA Diagnosis: *Chronic systolic [...] MV E-wave Vmax 1 m/sec MV deceleration ibwg638.5 msec MV A-wave Vmax 1 m/sec MV [...] Normal Mid-Posterolateral Normal Mid-Inferior Hypokinetic Mid-Inferoseptal Normal [place]-Septal Normal [place]-Anterior Hypokinetic [place]-Lateral Normal [place]-Inferior Akinetic [place]-Tip Hypokinetic This report has been electronically sign ed by: _ Ifeanyi Truong M.D. 07/28/2019 08:38:0 1 Images reviewed and interpretation verif ied [facility] Cardiac Ultrasound Laboratory Danette A [place] COLOR CONSULTANT ECHO ORDERABLES Performing Organization Address City/State/ZIP Code [...] documented in this encounter Care Teams Information Services Consultant Relationship Specialty Start Date End Date Lovely Vicente MD PCP - General 04/16/[address] [place] [address] documented as of this encounter
--- OUTSIDE RECORDS SUMMARY | 2022-03-09 15:25 | XMS_ITS | Encounter Summary ---
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 Post-op atrial fibrillation [id number] (CHF, HTN, DM, vascular disease, thromboembolism) Amiodarone discontinued Continue coumadin INR managed by PCP. 2.1 today 7. PAD 08/06/2017: Right 1st, 2nd, 3rd toe amputation 08/11/2017: Left??femoral arterial access, RLE??angiogram, Balloon angioplasty of R PT with Eleazar 2.5 x 80 10/25/2017: right popliteal[facility]ped[facility] at [facility] [...] MD [facility] [address] TADE[address] [place], [place] [address] (Wo rk) 06/10/2022 Office Visit Dermatology Laura Scherer MD [facility] DR TEJA GR-DERMAT OLOGY [place], [place] [address] (Wo rk) documented as of this encounter Results Lipid Panel (08/15/2018 8:04 AM EST) athologist Signature Chol, Total 75 mg/dL [facility] Comment: Lower Risk: <200 mg/dL Average Risk: 200-239 mg/dL Higher Risk: >ib=957 mg/dL Triglycerides 185 mg/dL [facility] Comment: Average Risk/Lower Risk: <150 mg/dL Borderline High Risk: 150-199 mg/dL High Risk: 200-499 mg/dL Very High Risk: >sn=288 mg/dL HDL 32 mg/dL [facility] Comment: Males: ?? Higher Risk: <40 mg/dL Females: ?? HIgher Risk: <50 mg/dL LDL Cholesterol 6 mg/dL [facility] Comment: Lowest Risk: <100 mg/dL Lower Risk: 100-129 mg/dL Borderline High Risk: 130-159 mg/dL High Risk: 160-189 mg/dL Very High Risk: >cl=125 mg/dL Chol/HDL Ratio 2.3 ratio [facility] Lipid Interpretation See Note [facility] Comment: Lipid management should be guided by a p atient? s ASCVD risk, goals and preferences. ACC/AHA Guidelines recommend high intens ity statin if clinical ASCVD or LDL greater than or equal to 190 mg/dL. http://La Koketaurl.com/CUB-BCR-Dumzitlyf Adults aged 40-75 with LDL 70-189 mg/dL should have their 10 year ASCVD risk estimated with the ACC/AHA ASCVD risk es timator http://tools.acc.org/OBSSW-Qvbj-Lvjztdiy r/ Statin should be discussed if risk [...] Organization Address City/State/[place] [address] (ABNORMAL) Basic Metabolic Panel (non-fasting) (08/15/2018 8:04 AM EST) P athologist Signature Glucose Lvl 116 65 - 199 [facility] mg/dL [facility] Comment: Diabetes: >=200 [...] of body mass or the acutely ill. http://GetYou/[facility] CITY[facility] eGFR 79 >=60 mL/min/1.73 m?? [facility] Comment: The eGFR was calculated using the CKD-EP I equation. As with all creatinine based estimates of kidney function, eGFR values calculated with the CKD-EPI equation are not accurate in patients wi th acute kidney failure, extremes of body mass or the acutely ill. http://GetYou/DHMCnkf Specimen Anatomical Collection Method Collection Time Receive d Time (Source) Location / / Volume Laterality Blood specimen 08/15/2018 8:04 AM 019 8:20 (specimen) EST AM EST Resulting Agency Comment Spec In Lab Danette Eliseo Hans QUINONES CHEMISTRY ORDERABLES Performing Organization Address City/State/ZIP Code Phon e Number [address] (ABNORMAL) pro-Brain Natriuretic Peptide (08/15/2018 8:04 AM EST) P athologist Signature ProBNP 1,797 (H) <=125 [facility] pg/mL [facility] Specimen Anatomical Collection Method Collection Time Receive d Time (Source) Location / / Volume Laterality Blood specimen 08/15/2018 8:04 AM 019 8:20 (specimen) EST AM EST Resulting Agency Comment Spec In Lab Danette Eliseo Hans QUINONES CHEMISTRY ORDERABLES Performing Organization Address City/State/[place] [address] documented in this encounter Visit Diagnoses Diagnosis Chronic systolic heart failure Cardiomyopathy, ischemic Other specified forms of chronic ischemi c heart disease ASCVD (arteriosclerotic cardiovascular d isease) Unspecified cardiovascular disease Essential hypertension Unspecified essential hypertension MARIA VICTORIA on CPAP Obstructive sleep apnea (adult) (pediatr ic) documented in this encounter Care Teams Instrument Tech Relationship Specialty Start Date End Date Lovely Vicente MD PCP - General 04/16/[address] [place] [address] documented as of this encounter
--- OUTSIDE RECORDS SUMMARY | 2022-03-09 15:25 | XMS_ITS | Encounter Summary ---
:1945 Author Organization [facility] Address [facility] [place] [address] Care Team Providers Name Role Phone Lovely Vicente MD Primary Care Provider Reason for Referral Diagnostic Test (Routine) - Closed Specialty Diagnoses / Procedures Referred By Contact Refer red To Contact Cardiology Diagnoses Chronic systolic heart failure Danette Maxwell APRN [facility] Non-Inv Card Lab Procedures Echocardiogram Transthoracic(Leb) [facility] [place] [address] [place] [address] Referral ID Status Reason Start Date Expiration Date Visits V isits Requested Authorized [id number] Closed Specialty 07/17/2019 09/14/2019 1 1 Service Requested Encounter Details Date Type Department Care Team Description 01/16/2019 Office Visit Cardiology at [facility] Danette Maxwell, Chronic systolic heart failu re; [facility] STACIE Cardiomyopathy, ischemic; Drive [facility] Hx of thyroid cancer; [place], [place] DR [place] (arteriosclerotic heart disease); [address] CARDIOLOGY MARIA VICTORIA (obstructive sleep apnea) on CPAP [phone] [place], [place] [address] (Wo rk) Social History Tobacco Use Types [...] K+ 4.6 today 6. Post-op atrial fibrillation [id number] (CHF, HTN, DM, vascular disease, thromboembolism) [...] MD [facility] CARDIOLOGY [place], [place] [address] (Wo rk) 06/10/2022 Office Visit Dermatology Laura Scherer MD [facility] DR TEJA GR-DERMAT OLOGY [place], [place] [address] (Wo rk) documented as of this encounter Results ECHOCARDIOGRAM COMPLETE W CONTRAST (07/28/2019 8:19 AM EST) athologist Signature EF 40 [facility] Specimen (Source) Anatomical Location Collection Method / Collectio n Time Received Time / Laterality Volume 07/28/2019 Narrative [facility] - 07/28/2019 8:38 AM EST Procedure: ?Transthoracic Echocardiogram Patient: ?NATALYA GREGORY Mccollum ? (Age): 1945(74y) Med Rec#: ? [id number] ?Sex: ?M ? Site Loc: ? [facility] ?Ht / Wt: ??172(cm)/81(kg) Pt. Loc: ?Echo Lab ?BSA: ?1.94 Study Date: ?? 07/28/2019 ?Pt. Type: Outpatient Tape: ? Referring: MARY ELLEN Reading: Ifeanyi Truong () Manager Ed: Fadumo Flanagan RDCS, REGINA Diagnosis: *Chronic systolic [...] E-wave Vmax ?1 ?m/sec ? MV deceleration ngtq037.5 ? msec ? MV A-wave Vmax ?1 [...] ? Pulmonic Valve/Qp:Qs ?Value ?Units (Range) ? AL end-diastolic Vma1.1 ?m/sec ? Wall Motion: Segment Name ?Rest ? Base-Anteroseptal ?? Normal ? Base-Anterior ? Normal ? Base-Anterolateral ??Normal ? Base-Posterolateral Normal ? Base-Inferior ? Akinetic ? Base-Inferoseptal ?? Normal ? Mid-Anteroseptal ?Normal ? Mid-Anterior ?Hypokinetic ? Mid-Anterolateral ?? Normal ? Mid-Posterolateral ??Normal ? Mid-Inferior ?Hypokinetic ? Mid-Inferoseptal ?Normal ? [place]-Septal ? Normal ? [place]-Anterior ? Hypokinetic ? [place]-Lateral ?Normal ? [place]-Inferior ? Akinetic ? [place]-Tip ?Hypokinetic ? This report has been electronically sign ed by: _ Ifeanyi Truong M.D. ? 07/28/2019 0 8:38:01 Images reviewed and interpretation [facility] Procedure Note Ifeanyi Truong MD - 07/28/2019Formatt ing of this note might be different from the original. Procedure: Transthoracic Echocardiogram Patient: NATALYA MCBRIDE(Age): [birth year]74y) Med Rec#: [id number] Sex: M Site Loc: [facility] Ht / Wt: 172(cm)/81(kg) Pt. Loc: Echo Lab BSA: 1.94 Study Date: 07/28/2019 Pt. Type: Outpati ent Tape: Referring: MARY ELLEN Reading: Ifeanyi Truong ([id number]) Manager Ed: Fadumo Flanagan RDCS, FASE Diagnosis: *Chronic systolic [...] MV E-wave Vmax 1 m/sec MV deceleration sicf097.5 msec MV A-wave Vmax 1 m/sec MV [...] 0.7 ratio Pulmonic Valve/Qp:Qs Value Units (Range) AL end-diastolic Vma1.1 m/sec Wall Motion: Segment Name Rest Base-Anteroseptal Normal Base-Anterior Normal Base-Anterolateral Normal Base-Posterolateral Normal Base-Inferior Akinetic Base-Inferoseptal Normal Mid-Anteroseptal Normal Mid-Anterior Hypokinetic Mid-Anterolateral Normal Mid-Posterolateral Normal Mid-Inferior Hypokinetic Mid-Inferoseptal Normal [place]-Septal Normal [place]-Anterior Hypokinetic [place]-Lateral Normal [place]-Inferior Akinetic [place]-Tip Hypokinetic This report has been electronically sign ed by: _ Ifeanyi Truong M.D. 07/28/2019 08:38:0 1 Images reviewed and interpretation verif ied [facility] Cardiac Ultrasound Laboratory Danette Maxwell APRN ECHO ORDERABLES Performing Organization Address City/State/ZIP Code Phon e Number [facility] (ABNORMAL) Basic Metabolic Panel (non-fasting) (01/16/2019 7:49 AM EDT) P athologist Signature Glucose Lvl 105 65 - 199 [facility] mg/dL [facility] Comment: Diabetes: >=200 mg/dL plus symp toms BUN 25 (H) 10 - 20 mg/dL [facility] Creatinine 1.08 0.80 - 1.50 mg/dL [facility] [...] estions. Chloride 106 98 - 107 mmol/L [facility] CO2 26 22 - 31 mmol/L [facility] Anion Gap 13 5 - 15 mmol/L [facility] Calcium 9.2 8.5 - 10.5 mg/dL [facility] Estimated GFR 68 >=60 mL/min/1.73 m?? [facility] Comment: The eGFR was calculated using the CKD-EP I equation. As with all creatinine based estimates of kidney function, eGFR values calculated with the CKD-EPI equation are not accurate in patients wi th acute kidney failure, extremes of body mass or the acutely ill. http://[employer] Technology/[facility] STROUDnkf eGFR 79 >=60 mL/min/1.73 m?? [facility] Comment: The eGFR was calculated using the CKD-EP I equation. As with all creatinine based estimates of kidney function, eGFR values calculated with the CKD-EPI equation are not accurate in patients wi th acute kidney failure, extremes of body mass or the acutely ill. http://[employer]/DHMCnkf Specimen Anatomical Collection Method Collection Time Receive d Time (Source) Location / / Volume Laterality Blood specimen 01/16/2019 7:49 AM 019 7:55 (specimen) EDT AM EDT Resulting Agency Comment Spec In Lab Danette Maxwell APRN CHEMISTRY ORDERABLES Performing Organization Address City/[facility] [place] [address] (ABNORMAL) pro-Brain Natriuretic Peptide (01/16/2019 7:49 AM EDT) P athologist Signature ProBNP 780 (H) <=125 pg/mL [facility] Specimen Anatomical Collection Method Collection Time Receive d Time (Source) Location / / Volume Laterality Blood specimen 01/16/2019 7:49 AM 019 7:55 (specimen) EDT AM EDT Resulting Agency Comment Spec In Lab Danette Maxwell APRN CHEMISTRY ORDERABLES Performing Organization Address City/[facility] [place] [address] documented in this encounter Visit Diagnoses Diagnosis Chronic systolic heart failure Cardiomyopathy, ischemic Other specified forms of chronic ischemi c heart disease Hx of thyroid cancer Personal history of malignant neoplasm o f thyroid ASHD (arteriosclerotic heart disease) Coronary atherosclerosis of unspecified type of vessel, [place] or graft MARIA VICTORIA (obstructive sleep apnea) on CPAP Obstructive sleep apnea (adult) (pediatr ic) Chronic systolic heart failure documented in this encounter Care Teams Therapeutic Recreation Specialist Relationship Specialty Start Date End Date Lovely Vicente MD PCP - General 04/16/[address] [place] [address] documented as of this encounter
--- OUTSIDE RECORDS SUMMARY | 2022-03-09 15:25 | XMS_ITS | Encounter Summary ---
:1945 Author Organization [facility] [place] [address] Care Team Providers Name Role Phone Lovely Vicente MD Primary Care Provider Encounter Details Date Type Department Care Team Description 10/05/2017 Unscheduled Cardiology at [facility] RONNIE Sin PATIENT NOT SEEN Encounter [facility] Tamiko Martinez MD [facility] [address] CARDIOLOGY DEPT [phone] [place] [address] Social History Tobacco Use Types Packs/Day Years [...] Vitaliy Nobles MD [facility] ER DR TADE[address] [place], [place] [address] (Wo rk) 06/10/2022 Office Visit Dermatology Laura Scherer MD [facility] MEDICAL [facility] DR TEJA [address] [place], [place] [address] (Wo rk) documented as of this encounter Visit Diagnoses Diagnosis DH PATIENT NOT SEEN documented in this encounter Care Teams Sharepoint Developer Relationship Specialty Start Date End Date Lovely Vicente MD PCP - General 04/16/15 [facility] [address] [place] [address] documented as of this encounter
--- OUTSIDE RECORDS SUMMARY | 2022-03-09 15:25 | XMS_ITS | Encounter Summary ---
:1945 Author Organization [facility] [address] Care Team Providers Name Role Phone Lovely Vicente MD Primary Care Provider Encounter Details Date Type Department Care Team Description 10/07/2017 Laboratory Appointment Lab 3L [facility] [place] [phone] Social History Tobacco Use Types Packs/Day Years [...] MD [facility] [address] T[address] [place], [place] [address] (Wo rk) 06/10/2022 Office Visit Dermatology Laura Scherer MD [facility] DR TEJA GR[address]DER[address] [place], [place] [address] (Wo rk) documented as of [...] Signature Glucose Lvl 99 65 - 199 [facility] mg/dL [facility] Comment: Diabetes: >=200 mg/dL plus symp toms BUN 27 (H) 10 - 20 mg/dL [facility] Creatinine 1.07 0.80 - 1.50 mg/dL [facility] [...] 15 mmol/L [facility] Calcium 8.4 (L) 8.5 - 10.5 mg/dL [facility] Estimated GFR >60 >=60 [facility] Comment: The reported eGFR should be multiplied b y 1.2 for patients. The MDRD is not an appropriate measure o f renal function for patients with body mass extremes or in patients with acute kidney failure. http://Pitch[employer].xTV/DHnkdep http://[employer].xTV/DHMCnkf Specimen Anatomical Collection Method Collection Time Receive d Time (Source) Location / / Volume Laterality Blood specimen 10/07/2017 8:48 AM 018 8:50 (specimen) EDT AM EDT Resulting Agency Comment Spec In Lab Danette Maxwell FREQUENCY CHECKER CHEMISTRY ORDERABLES Performing Organization Address City/State/[place] [address] (ABNORMAL) pro-Brain Natriuretic Peptide (10/07/2017 8:48 AM EDT) P athologist Signature ProBNP 1,170 (H) <=125 [facility] pg[facility]mL [facility] Specimen Anatomical Collection Method Collection Time Receive d Time (Source) Location / / Volume Laterality Blood specimen 10/07/2017 8:48 AM 018 8:50 (specimen) EDT AM EDT Resulting Agency Comment Spec In Lab Danette Eliseo Maxwell APRN CHEMISTRY ORDERABLES Performing Organization Address City/State/[place] [address] documented in this encounter Visit Diagnoses Diagnosis Chronic systolic heart failure documented in this encounter Care Teams Soot Blower Relationship Specialty Start Date End Date Lovely Vicente MD PCP - General 04/16/[address] [place] [address] documented as of this encounter
--- OUTSIDE RECORDS SUMMARY | 2022-03-09 15:25 | XMS_ITS | Encounter Summary ---
:1945 Author Organization [facility] [place] [address] Care Team Providers Name Role Phone Lovely Vicente MD Primary Care Provider Encounter Details Date Type Department Care Team Description 01/16/2019 Laboratory Appointment Lab 3L [facility] [place] [phone] Social History Tobacco Use Types Packs/Day Years [...] Vitaliy Nobles MD [facility] CARDIOLOGY [place], [place] [address] (Wo rk) 06/10/2022 Office Visit Dermatology Laura Scherer MD [facility] DR TEJA GR[address]DERMAT OLOGY [place], [place] [address] (Wo rk) documented as [...] Organization Address City/State/ZIP [place] [address] (ABNORMAL) Basic Metabolic Panel (non-fasting) (01/16/2019 7:49 AM EDT) P athologist Signature Glucose Lvl 105 65 - 199 [facility] mg/dL [facility] Comment: Diabetes: >=200 mg/dL plus symp toms BUN 25 (H) 10 - 20 mg/dL [facility] Creatinine 1.08 0.80 - [...] of body mass or the acutely ill. http://Passbox/[facility] FAIRFAXnkf eGFR 79 >=60 mL/min/1.73 m?? [facility] Comment: The eGFR was calculated using the CKD-EP I equation. As with all creatinine based estimates of kidney function, eGFR values calculated with the CKD-EPI equation are not accurate in patients wi th acute kidney failure, extremes of body mass or the acutely ill. http://Passbox/[facility] FAIRFAXnkf Specimen Anatomical Collection Method Collection Time Receive d Time (Source) Location / / Volume Laterality Blood specimen 01/16/2019 7:49 AM 019 7:55 (specimen) EDT AM EDT Resulting Agency Comment Spec In Lab Danette Maxwell APRN CHEMISTRY ORDERABLES Performing Organization Address City/State/[place] [address] documented in this encounter Visit Diagnoses Diagnosis Chronic systolic heart failure documented in this encounter Care Teams Publicist Relationship Specialty Start Date End Date Lovely Vicente MD PCP - General 04/16/[address] [place] [address] documented as of this encounter
--- OUTSIDE RECORDS SUMMARY | 2022-03-09 15:25 | XMS_ITS | Encounter Summary ---
:1945 Author Organization [facility] [place] [address] Care Team Providers Name Role Phone Lovely Vicente MD Primary Care Provider Reason for Visit Reason Onset Date Comments Other 11/11/2017 Please call [facility] Encounter Details Date Type Department Care Team Description 11/11/2017 Telephone Cardiology at [facility] Danette Maxwell, Other (Please call [facility] GENERAL DENTIST/OWNER [facility] [place] [address] CARDIOLOGY [place], [place] [address] (Wo rk) Social History Tobacco Use Types Packs/Day Years Used Date Former Smoker Cigarettes 3 5 Quit: 07/26/18 69 Smokeless Tobacco: Never Used Alcohol Use Standard Drinks/Week Comments No 0 (1 standard drink = 0.6 oz pure alcoho l) Sex Assigned at Date Recorded Not on file documented as of this encounter Miscellaneous Notes Telephone Encounter - Dneice Bronson - 11/12/2017 9:06 AM EDT Danette called Mr. Fatima yesterday. Denice Telephone Encounter - Denice Bronson - 11/11/2017 9:16 AM EDT Geogres Samaniego call Mr. Fatima. He would not tell me what was going on, he only would say it is personal and needs to speak to you RANDELL. Thank you, Denice documented in this encounter Plan of Treatment Upcoming Encounters Date Type Specialty Care Team Description 03/26/2022 Office Visit Cardiology Vitlaiy Nobles MD [facility] CARDIOLOGY [place], [place] [address] (Wo rk) 06/10/2022 Office Visit Dermatology Laura Scherer MD [facility] DR TEJA GR[address]MAT [place], [place] [address] (Wo rk) documented as of this encounter Visit Diagnoses Not on filedocumented in this encounter Care Teams Transportation Inspector Relationship Specialty Start Date End Date Lovely Vicente MD PCP - General 04/16/15 [facility] [address] [place] [address] documented as of this encounter
--- OUTSIDE RECORDS SUMMARY | 2022-03-09 15:25 | XMS_ITS | Encounter Summary ---
:1945 Author Organization [facility] [place] [address] Care Team Providers Name Role Phone Lovely Vicente MD Primary Care Provider Encounter Details Date Type Department Care Team Description 08/30/2017 [facility] ischemia [facility] [address] [place], [place] VASCULAR SURGERY [address] [place] [address] [phone] Social History Tobacco Use Types Packs/Day Years [...] Smith MD - 08/30/2017 2:00 PM EST [facility] staff: Patient returns. He is doing [...] MD [facility] [address] [place], [place] [address] (Wo rk) 06/10/2022 Office Visit Dermatology Laura Scherer MD [facility] [address] [place], [place] [address] (Wo rk) documented as of this encounter Visit Diagnoses Diagnosis Critical lower limb ischemia Unspecified circulatory system disorder documented in this encounter Care Teams Silica Mixer Operator Relationship Specialty Start Date End Date Lovely Vicente MD PCP - General 04/16/[address] [place] [address] documented as of this encounter
--- OUTSIDE RECORDS SUMMARY | 2022-03-09 15:25 | XMS_ITS | Encounter Summary ---
:1945 Author Organization [facility] [place] [address] Care Team Providers Name Role Phone Lovely Vicente MD Primary Care Provider Encounter Details Date Type Department Care Team Description 04/18/2018 Laboratory Appointment Lab 3L [facility] [place] [id number] Social History Tobacco Use Types Packs/Day Years [...] Vitaliy Nobles MD [facility] CARDIOLOGY [place], [place] [address] (Wo rk) 06/10/2022 Office Visit Dermatology Laura Scherer MD [facility] DR TE[address] GR-DERMAT OLOGY [place], [place] [address] (Wo rk) documented as of [...] Signature Total Protein 7.6 6.1 - 8.0 [facility] gm/dL [facility] Albumin 4.0 3.2 - 5.2 [place] [facility] gm/dL [facility] AST 36 0 - 39 [facility] unit/L [facility] ALT 27 0 - 55 [facility] unit/L [facility] Alk Phos 96 40 - 120 [facility] unit/L [facility] Total 0.7 0.2 - 1.3 [place] [facility] Bilirubin mg/dL [facility] Bili, Direct 0.1 0.0 - 0.3 [facility] mg/dL [facility] Specimen Anatomical Collection Method Collection Time Receive d Time (Source) Location / / Volume Laterality Blood specimen Venous Draw / 04/18/2018 9:19 AM 2017 9:44 (specimen) Unknown EDT AM EDT Resulting Agency Comment Spec In Lab Danette Maxwell APRN CHEMISTRY ORDERABLES Performing Organization Address City/[facility] [place] [address] TSH (04/18/2018 9:19 AM EDT) athologist Signature TSH 1.77 0.27 - 4.20 [facility] mlU/ML [facility] Specimen Anatomical Collection Method Collection Time Receive d Time (Source) Location / / Volume Laterality Blood specimen Venous Draw / 04/18/2018 9:19 AM 2017 9:44 (specimen) Unknown EDT AM EDT Resulting Agency Comment Spec In Lab Danette Maxwell APRN CHEMISTRY ORDERABLES Performing Organization Address City/State/[place] [address] (ABNORMAL) Basic Metabolic Panel (non-fasting) (04/18/2018 9:19 AM EDT) P athologist Signature Glucose Lvl 167 65 - 199 [facility] mg/dL [facility] Comment: Diabetes: >=200 mg/dL plus symp toms BUN 18 10 - 20 mg/dL [facility] Creatinine 1.19 0.80 - 1.50 mg/dL [facility] Sodium 147 (H) 135 - 145 mmol/L [facility] [...] Gap 23 (H) 5 - 15 mmol/L [facility] Calcium 9.3 8.5 - 10.5 mg/dL [facility] Estimated GFR 61 >=60 mL/min/1.73 m?? [facility] Comment: The eGFR was calculated using the CKD-EP I equation. As with all creatinine based estimates of kidney function, eGFR values calculated with the CKD-EPI equation are not accurate in patients wi th acute kidney failure, extremes of body mass or the acutely ill. http://[employer]/[facility] OKEMAHnkf eGFR 70 >=60 mL/min/1.73 m?? [facility] Comment: The eGFR was calculated using the CKD-EP I equation. As with all creatinine based estimates of kidney function, eGFR values calculated with the CKD-EPI equation are not accurate in patients wi th acute kidney failure, extremes of body mass or the acutely ill. http://[employer]/[facility] OKEM[facility]nkf Specimen Anatomical Collection Method Collection Time Receive d Time (Source) Location / / Volume Laterality Blood specimen 04/18/2018 9:19 AM 018 9:34 (specimen) EDT AM EDT Resulting Agency Comment Spec In Lab Danette Maxwell STACIE CHEMISTRY ORDERABLES Performing Organization Address City/State/[place] [address] (ABNORMAL) pro-Brain Natriuretic Peptide (04/18/2018 9:19 AM EDT) P athologist Signature ProBNP 2,199 (H) <=125 [facility] pg[facility]mL [facility] Specimen Anatomical Collection Method Collection Time Receive d Time (Source) Location / / Volume Laterality Blood specimen 04/18/2018 9:19 AM 018 9:34 (specimen) EDT AM EDT Resulting Agency Comment Spec In Lab Danette Gomes [place] STACIE CHEMISTRY ORDERABLES Performing Organization Address City/[facility]/[place] [address] documented in this encounter Visit Diagnoses Diagnosis Chronic systolic heart failure documented in this encounter Care Teams Office Technician Relationship Specialty Start Date End Date Lovely Vicente MD PCP - General 04/16/[address] [place] [address] documented as of this encounter
--- OUTSIDE RECORDS SUMMARY | 2022-03-09 15:25 | XMS_ITS | Encounter Summary ---
:1945 Author Organization [facility] [place] [address] Care Team Providers Name Role Phone Lovely Vicente MD Primary Care Provider Encounter Details Date Type Department Care Team Description 08/26/2017 Hospital Encounter Vascular Lab at [facility], Athero embolism of foot, right; [place], [place] Delayed surgi nusrat wound healing, [place] [phone] Social History Tobacco Use Types Packs/Day Years [...] 1 tablet by mouth 60 tablet 12 09/15/2016 850 mg Tablet 2 times daily (with meals). BD INSULIN PEN NEEDLE 1 each by Other route 4 0 1 09/14/2016 UF MINI 31 gauge x times daily. 3/16 Needle meTOPROLOL succinate Take 25 mg by mouth 0 03/06/2022 (TOPROL-XL) 25 mg daily. 0.5 tablet of 50 Tablet Sustained mg Release 24 hr amoxicillin-clavulanat Take 1 tablet by mouth 20 [...] Nobles MD [facility] CARDIOLOGY [place], [place] [address] (Wo rk) 06/10/2022 Office Visit Dermatology Laura Scherer MD [facility] DR [address]DERMAT OLOGY [place], [place] [address] (Wo rk) documented as of [...] Value Ref Test Analysis Performed At [facility] Range Method Time Signature VB Text Department: Vascular Surgery Lab VASCUBASE Report Patient: [id number] (DON HOANG) CPT: 20174 ICD10: T81.89XA;I75.021 Referring Physician: ELVER BLOOM ?? [...] encounter documented in this encounter Care Teams Lining Finisher Relationship Specialty Start Date End Date Lovely Vicente MD PCP - General 04/16/[address] [place] [address] documented as of this encounter
--- OUTSIDE RECORDS SUMMARY | 2022-03-09 15:25 | XMS_ITS | Encounter Summary ---
:1945 Author Organization [facility] [place] [address] Care Team Providers Name Role Phone Lovely Vicente MD Primary Care Provider Reason for Visit Reason Onset Date Comments Follow-up 07/13/2018 amiodarone discontin ued Encounter Details Date Type Department Care Team Description 07/13/[address] [facility] Martha Comer, Follow-up (amiodarone [facility] RN discontin ued) [place] [phone] Social History Tobacco Use Types Packs/Day [...] RN - 07/13/2018 8:57 AM EST Per DIRECTOR OF INFECTION PREVENTION Hans call placed to the home number for the pt. confirmed that the pt is still taking the amiodarone. Pt is to stop the amiodarone. Pt taking it for post op a-fib, therapy was supposed to be for 30 days. Message given to his . She will give him the message and will have him call with any questions. Call placed to the [facility] pharmacy in [place] to discontinue it there as well. Med list updated. documented in this encounter Plan of Treatment Upcoming Encounters Date Type Specialty Care Team Description 03/26/2022 Office Visit Cardiology Vitaliy Nobles MD [facility] [address] [place], [place] [address] (Wo rk) 06/10/2022 Office Visit Dermatology Laura Scherer MD [facility] DR [address]-DERMAT [place], [place] [address] (Wo rk) documented as of this encounter Visit Diagnoses Not on filedocumented in this encounter Care Teams Statement Services Representative Relationship Specialty Start Date End Date Lovely Vicente MD PCP - General 04/16/[address] [place] [address] documented as of this encounter
--- OUTSIDE RECORDS SUMMARY | 2022-03-09 15:25 | XMS_ITS | Encounter Summary ---
:1945 Author Organization [facility] [address] Care Team Providers Name Role Phone Lovely Vicente MD Primary Care Provider Encounter Details Date Type Department Care Team Description 11/29/2017 Laboratory Lab 3L Barbara Wiseman systoli c congestive heart failure; Appointment [facility] ASCVD (ar teriosclerotic cardiovascular disease); Hospital Cardiomyopathy, [place] [phone] Social History Tobacco Use Types [...] MD [facility] [address] [place], [place] [address] (Wo rk) 06/10/2022 Office Visit Dermatology Laura Scherer MD [facility] DR [address]-DERMAT OLOGY [place], [place] [address] (Wo rk) documented [...] Signature PT 23.0 (H) 9.4 - 12.5 [facility] LABORATORY INR 2.1 [facility] Comment: An INR [...] City/State/[place] [address] (ABNORMAL) Basic Metabolic Panel (non-fasting) (11/29/2017 8:22 AM EDT) athologist Signature Glucose Lvl 217 (H) 65 - 199 [facility] mg/dL [facility] Comment: Diabetes: >=200 mg/dL plus symp toms BUN 26 (H) 10 - 20 mg/dL [facility] Creatinine 0.96 0.80 - 1.50 mg/dL [facility] Sodium 137 135 - 145 mmol/L [facility] Potassium 4.1 3.5 - 5.0 mmol/L [facility] Comment: Please note: ??Patients with WBC >100,00 0 may have falsely elevated Potassium levels. ??For accurate Potassium quantif ication in these patients send serum separator tube (gold top) for subsequent determinations. ??Contact the Clinical Chemistry Laboratory if there are any qu estions. Chloride 97 (L) 98 - 107 mmol/L [facility] CO2 23 22 - 31 mmol/L [facility] [...] or in patients with acute kidney failure. [email or web address] [email or web address] Specimen Anatomical Collection Method Collection Time Receive d Time (Source) Location / / Volume Laterality Blood specimen 11/29/2017 8:22 AM 018 8:29 (specimen) EDT AM EDT Resulting Agency Comment Spec In Lab Danette Maxwell APRN CHEMISTRY ORDERABLES Performing Organization Address City/State/[place] [address] (ABNORMAL) pro-Brain Natriuretic Peptide (11/29/2017 8:22 AM EDT) P athologist Signature ProBNP 1,769 (H) <=125 [facility] pg[facility]mL [facility] Specimen Anatomical Collection Method Collection Time Receive d Time (Source) Location / / Volume Laterality Blood specimen 11/29/2017 8:22 AM 018 8:29 (specimen) EDT AM EDT Resulting Agency Comment Spec In Lab Danettebrock Maxwell APRN CHEMISTRY ORDERABLES Performing Organization Address City/State/ZIP Code Phon e Number [address] Lavender Tube HOLD (11/29/2017 8:14 AM EDT) [facility] gist Method Time Signature Lavender Hold Sample in [facility] lab. [facility] LABOR[facility]ORY Specimen Anatomical Collection Method Collection Time Receive d Time (Source) Location / / Volume Laterality Blood specimen No Charge / 11/29/2017 8:14 AM 018 8:29 (specimen) Unknown EDT AM EDT Lovely Vicente MD HEMATOLOGY ORDERABLES Performing Organization Address City/[facility]/[place] [address] documented in this encounter Visit Diagnoses Diagnosis Chronic systolic congestive heart failur e Chronic systolic heart failure ASCVD (arteriosclerotic cardiovascular d isease) Unspecified cardiovascular disease Cardiomyopathy, ischemic Other specified forms of chronic ischemi c heart disease documented in this encounter Care Teams Doctor Assistant Relationship Specialty Start Date End Date Lovely Vicente MD PCP - General 04/16/[address] [place] [address] documented as of this encounter
--- OUTSIDE RECORDS SUMMARY | 2022-03-09 15:26 | XMS_ITS | Encounter Summary ---
:1945 Author Organization [facility] [place] [address] Care Team Providers Name Role Phone Lovely Vicente MD Primary Care Provider Reason for Visit Reason Comments Follow-up I'm having trouble with the VAC Encounter Details Date Type Department Care Team Description 08/26/2017 Office Visit Vascular Surgery at [facility], STEPHANIE Mercado Atheroembolism of foot, right; [facility] [address] Delayed surgical wound healing, initial encounter; [facility] VASCULAR SURG YEHUDA Acute on chronic systolic congestive hea rt failure ; [place], [place] [phone] Social History Tobacco Use Types Packs/Day Years [...] home and into the care of the [facility]. However, since discharge from [facility] he has had some difficulty with continuation [...] at [facility] MAIN OR Social Hx: Social [...] MD [facility] DR [address] [place], [place] [address] ([facility]) 06/10/2022 Office Visit Dermatology Laura Scherer MD [facility] DR TE[address] GR[facility] [place] [place] [address] (Wo rk) documented as [...] Department: Vascular Surgery Lab VASCUBASE Report Patient: [id number] (GREGORY HOANG) CPT: 15048 ICD10: T81.89XA;I75.021 Referring Physician: ARIK BLOOM ?? [...] Signature Glucose Lvl 98 65 - 199 [facility] mg/dL [facility] [...] LABORATORY Calcium 9.1 8.5 - 10.5 mg/dL [facility]OR[facility]ORY Estimated GFR >60 >=60 [facility] Comment: The reported eGFR should be multiplied b y 1.2 for patients. The MDRD is not an appropriate measure o f renal function for patients with body mass extremes or in patients with acute kidney failure. http://[employer] 100e/DHnkdep http://[employer]/DHMCnkf Specimen Anatomical Collection Method Collection Time Receive d Time (Source) Location / / Volume Laterality Blood specimen 08/26/2017 2:00 PM 018 2:15 (specimen) EST PM EST Resulting Agency Comment Spec In Lab Danette Maxwell STACIE CHEMISTRY ORDERABLES Performing Organization Address City/State/ZIP Code Phon e Number [address] (ABNORMAL) pro-Brain Natriuretic Peptide (08/26/2017 2:00 PM EST) P athologist Signature ProBNP 2,373 (H) <=125 [facility] pg/mL [facility]OR[facility]ORY Specimen Anatomical Collection Method Collection Time Receive d Time (Source) Location / / Volume Laterality Blood specimen 08/26/2017 2:00 PM 018 2:15 (specimen) EST PM EST Resulting Agency Comment Spec In Lab Danette Maxwell STACIE CHEMISTRY ORDERABLES Performing Organization Address City/[facility]/[place] [address] documented in this encounter Visit Diagnoses Diagnosis Atheroembolism of foot, right Delayed surgical wound healing, initial encounter Acute on chronic systolic congestive hea rt failure Acute on chronic systolic heart failure Ischemic cardiomyopathy Other specified forms of chronic ischemi c heart disease documented in this encounter Care Teams Piano Professor Relationship Specialty Start Date End Date Lovely Vicente MD PCP - General 04/16/[address] [place] [address] [address] [place] [address] documented as of this encounter
--- OUTSIDE RECORDS SUMMARY | 2022-03-09 15:26 | XMS_ITS | Encounter Summary ---
:1945 [place] [address] Care Team Providers Name Role Phone Lovely Vicente MD Primary Care Provider Reason for Visit Auth/Cert Specialty Diagnoses / Procedures Referred By Contact Refer red To Contact Diagnoses Critical lower limb ischemia CELLULITIS RT FOOT Procedures EMERGENCY Referral ID Status Reason Start Date Expiration Date Visits Requ ested Visits Authorized [id number] 1 1 Encounter Details Date Type Department Care Team Description 08/06/2017 - Hospital Encounter 5 Yonathan Oneill lower limb ischemia; 08/16/2017 Su Flores MD Ischemic foot Hospital [facility] [address] [phone] Social History Tobacco Use Types Packs/Day Years [...] of abdominal wall ??? Urinary retention ??? MRAIA VICTORIA (obstructive sleep apnea) on CPAP ??? 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 Patient [...] Dorsalis Pedis (Ankle) Artery ?132 ? 0.94 ??Hopkins-Biphasic ? Posterior Tibial (Ankle) Artery ??154 ? 1.10 ??Hopkins-Biphasic ? Fourth Toe ? 67 ?0.48 ?? [...] the foot. Discharge Conditions/Prognosis: Good Discharge to: [facility] Rehab Discharge Medications: Your Medications [...] For any problems or questions please call [phone] ZELDA Smith, curator herbarium Nurse Clinician For issues on weeknights after 5pm and weekends please call [phone] and ask for the Vascular Fellow radiation therapist. General Instructions None Future Appointments and Orders Future Appointments Provider Department Dept Phone 08/26/2017 4:00 PM Aurelia Rivera PA V[facility] Surgery [facility] [phone] 09/07/2017 3:00 PM LAB, THREE L Lab 3L [facility] [phone] 09/07/2017 4:00 PM Luz Prescott MD Endocrinology at [facility] [phone] 09/09/2017 8:00 AM Barbra Soares APRN Pain Management [facility] [phone] Please bring a list of your current [...] For any problems or questions please call [phone] ZELDA Smith, curator herbarium Nurse Clinician For issues on weeknights after 5pm and weekends please call [phone] and ask for the Vascular Fellow radiation therapist. documented in this encounter Medications at Time [...] Discharge Note Patient Destination: [facility] ([facility]) [address] [place] [address] Transportation: with (at bedside) Time of Discharge: by 12 noon Level of Care: swing Patient Aware: yes Family Notified: yes Md to call report to: Yissel Quintero MANAGER CUSTOM already called RN to call report to: [phone] Shirin Wolf Office of Care Management Pager [phone] Shirin Wolf RN - 08/16/2017 10:50 AM EST [facility] has offered pt swing bed. Pt and accept bed. will transport via car. MANAGER CUSTOM Yissel Quintero aware; d/c paperwork will be completed by 12 noon. [facility] requests pt arrival by 1400 today; MANAGER CUSTOM, RN, and family aware. MANAGER CUSTOM called [facility] and was told that they prefer pt to arrive with wound vac dressing applied but clamped. MANAGER CUSTOM applied new wound vac dressing. RN has [facility] number to call report. PASSR completed; MANAGER CUSTOM paged to request provider signature in highlighted space. Indigo from [facility] notified via email that home wound vac now cancelled; [facility] has picked up from room and order cancelled. Packet started and provided to nursing unit coordinator. Medicare important message explained to patient, patient signed. Copy provided to patient and signature page to OCM for inclusion in pt EMR. Radha Georges - 08/16/2017 10:34 AM EST Office of Care Management/Harness Maker Patient Name: Gregory Hoang : 1945 Patient has been offered a swing bed at [facility]. The patient will be transported by private transportation. No MD to MD report necessary Please call Nursing Report to [phone], ask for candy decorator. Info to accompany patient: Narcotic Prescriptions Copies of Medication Administration Records and IV sheets for past 10 days. Plan: Harness Maker will be available to the patient and Card Cutter Helper-RN and/or Boxing And Pressing Supervisor for further assistance. Patient will be discharged to: [place] [phone] Radha Powers, Harness Maker Mira Black, VAMSI - 08/15/2017 10:05 PM EST [address] Flores to ask if he wanted to hold metoprolol dose. BP 95/58. OK to hold this dose Courtney Brito - 08/15/2017 3:26 PM EST Office of Care Management(OCM)/Harness Maker(RS)/ D/C Planning re : Patient is medically ready for d/c today. RS has been in contact with [facility] to see if they could offer a bed. [facility] is still reviewing the case and need their MD to review chart prior to accepting or declining. OCM team needs to check in with [facility] tomorrow to check on status. 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 Vac in [...] would like information about patient's referral to: [facility] PHONE: [phone] FAX: [phone] CM spoke with RS who said that [...] would be accepted to acute rehab at [facility] as Dr. Smith had recommended . [...] rehab. Await recommendations from PT. Covering pager #[phone]. 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 Violin Repairer Kaitlin Saha, RN Pager #[phone] Payam Rosales - 08/13/2017 2:37 PM EST Oyster Bed Worker Encounter Note Patient Name: Gregory Hoang : [id number] MR#: [id number] Admit Date: 08/06/2017 1:41 PM Hospital Day 7 days Narrative: Visited to introduce and assess acceptance of Oyster Bed Worker services. Pt was awake, alert, oriented and in chair and family was there. Assessment:Patient coping positively with stresses of illness/hospitalization at this time. Pt says that he is hoping to get better and his family was there. Pt says that he has family care and supportand taking one day at time. Intervention and Outcome: Provided emotional support and encouraging presence. 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 A letter describing our affiliations was reviewed with them and theywere educated about their right to choose where referrals are placed. Patient requests referral to [facility]. PHONE: [phone] FAX: [phone]. And Home NPWT (Negative Pressure Wound Therapy) aka wound vac device made available to pt. Serial # confirmed. Reviewed [facility] Proof of Delivery/Assignment of Benefits Statement(POD/AOB) Form w patient or authorized agent signing on behalf of patient. Copy of POD/AOB provided to pt and other copy faxed to [employer] @ fax# [phone] Expected date of discharge: 08/12/2017. 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 Address: [address] [place] [address] [place] [address] (home) Mobile: Telephone Information: Referring Provider: No [...] SETUP performed by Manny Mcknight MD at [facility] MAIN OR ??? PRO CABG, ARTERIAL, SINGLE N/A 07/07/2017 @CABG, USING ARTERIAL GRAFT;SINGLE ARTERIAL GRAFT (WRVU 33.75) performed by Yuan Retana MD at [facility] MAIN OR ??? PRO CABG, ARTERY-VEIN, TWO N/A 07/07/2017 @CABG, TWO VENOUS GRAFTS & ARTERIAL GRAFT (WRVU 7.93) performed by Yuan Retana MD at [facility] MAIN OR ??? PRO COLONOSCOPY, REMV LESN, SNARE 01/16/2014 COLONOSCOPY, POLYPECTOMY, REMOVAL LESION BY SNARE performed by Nohemi Jaimes MD at [facility] ENDOSCOPY ??? PRO ENDOSCOPY W/VIDEO-ASST VEIN HARVEST, CABG Right 07/07/2017 ENDOSCOPIC HARVEST VEIN(S) FOR CABG (WRVU 0.31) performed by Yuan Retana MD at [facility] MAIN OR ??? 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 Heparin gtt continues to run. Pt [...] of : 1945 AGE 72 y.o. Address: [address] [place] [address] [place] [address] (home) Mobile: Telephone Information: Referring Provider: No [...] SETUP performed by Manny Mcknight MD at [facility] MAIN OR ??? PRO CABG, ARTERIAL, SINGLE N/A 07/07/2017 @CABG, USING ARTERIAL GRAFT;SINGLE ARTERIAL GRAFT (WRVU 33.75) performed by Yuan Retana MD at [facility] MAIN OR ??? PRO CABG, ARTERY-VEIN, TWO N/A 07/07/2017 @CABG, TWO VENOUS GRAFTS & ARTERIAL GRAFT (WRVU 7.93) performed by Yuan Retana MD at [facility] MAIN OR ??? PRO COLONOSCOPY, REMV LESN, SNARE 01/16/2014 COLONOSCOPY, POLYPECTOMY, REMOVAL LESION BY SNARE performed by Nohemi Jaimes MD at [facility] ENDOSCOPY ??? PRO ENDOSCOPY W/VIDEO-ASST VEIN HARVEST, CABG Right 07/07/2017 ENDOSCOPIC HARVEST VEIN(S) FOR CABG (WRVU 0.31) performed by Yuan Retana MD at [facility] MAIN OR ??? 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 Unsuccessful draw attempt, another mine development engineer will come [facility] to collect blood for PTT test. 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 Vascular resident radiation therapist and will forward result to the team prior to rounds. 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 Patient [...] SETUP performed by Manny Mcknight MD at [facility] MAIN OR ??? PRO CABG, ARTERIAL, SINGLE N/A 07/07/2017 @CABG, USING ARTERIAL GRAFT;SINGLE ARTERIAL GRAFT (WRVU 33.75) performed by Yuan Retana MD at [facility] MAIN OR ??? PRO CABG, ARTERY-VEIN, TWO N/A 07/07/2017 @CABG, TWO VENOUS GRAFTS & ARTERIAL GRAFT (WRVU 7.93) performed by Yuan Retana MD at [facility] MAIN OR ??? PRO COLONOSCOPY, REMV LESN, SNARE 01/16/2014 COLONOSCOPY, POLYPECTOMY, REMOVAL LESION BY SNARE performed by Nohemi Jaimes MD at [facility] ENDOSCOPY ??? PRO ENDOSCOPY W/VIDEO-ASST VEIN HARVEST, CABG Right 07/07/2017 ENDOSCOPIC HARVEST VEIN(S) FOR CABG (WRVU 0.31) performed by Yuan Retana MD at [facility] MAIN OR ??? PRO THYROIDECTOMY 03/28/2013 THYROIDECTOMY, TOTAL OR COMPLETE performed by Manny Mcknight MD at [facility] MAIN OR Functional Status/Social Hx: Quit [...] left blue toes with CTA showing R WATCH TECHNICIAN pseudoaneurysm (now thrombosed) and occluded ATs bilaterally. [...] 2.5x80 5. Completion RLE angiogram 6. L WATCH TECHNICIAN angiogram 7. 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 - L WATCH TECHNICIAN angriogram demonstrated: High femoral bifurcation over the proximal half of the femoral head. L WATCH TECHNICIAN access in the distal L WATCH TECHNICIAN. - Closure device: Mynx Technical Procedure: The [...] for a 45cm 5F Destination. V18 and Leeds and QuickCross catheters were used to select [...] 5F. A stationed picture of the L WATCH TECHNICIAN was performed as the patient was noted to have a very high bifurcation. Access appeared in the distal R WATCH TECHNICIAN. Closure and sheath removal was performed with [...] PM EST 1440 report called to 5 colora nurse Tessa AGUSTIN documented in this encounter [...] with pt and pt's spouse. Discharge to [facility]. Goal: Individualization & Mutuality Outcome: [...] sit/sit to supine -- Bed Mobility Goal, Knox Level independent -- Bed Mobility Goal, Date [...] days -- Transfer Training Goal, Activity Type gka-oc-nwhmo/xwgjx-sp-jta -- Transfer Train Goal, Knox Level conditional independence -- Transfer Train Goal, [...] call cabello within reach, Hourly rounding by RN/LIFT TEAM TECHNICIAN. Bed alarm / Chair alarm. Patient-specific fall [...] MD - 08/15/2017 6:[address] [facility] Operative Note Patient Name: Gregory Hoang : [id number] MR#: [id number] Case Date: 08/09/2017 Surgeon: Surgeon(s) and Role: [...] 2.5x80 5. Completion RLE angiogram 6. L WATCH TECHNICIAN angiogram 7. Mynx closure Precautions/Restrictions: fall, sternal [...] feet/ bed -> bathroom). Anticipated Discharge Disposition: snf facility, other (see comments) (or swing bed) Pager: [phone] BASSAM ELIAS, PT 08/14/2017 Inpatient Physical Therapy [...] to Achieve by discharge Gait Training Goal, Knox Level conditional independence;set up required Gait Training [...] these facilities over the weekend except for [facility]. CM spoke with [facility] CM Drea Sandhu, VAMSI who said that they do not anticipate any beds over the weekend. Reviewed with patient/ that they need to be aware that patient will need to take the first bed offered at the facilities that they make referrals to. Their choices are: 1- [facility] PHONE: [phone] FAX: [phone] 2- [facility] ([facility]) [address] [place] [address] 3- [facility]) [address] [place] [address] I have discussed Medicare/Private Insurance [...] RS/CM on Wednesday to follow-up. Covering pager #[phone] for today. Plan of Care - Henrique [...] with additional findings of pseudoaneurysm on R WATCH TECHNICIAN and bilateral anterior tibial artery occlusions. Was [...] an outpatient once discharged. Have patient call [phone] to set up an appointment. Follow-up: Dermatology will sign-off for now. Please do not hesitate to contact us if you have any questions orconcerns. Impression and Recommendations discussed with primary team on 08/13/2017. Karo Henderson MD Resident in Dermatology Section of Dermatology, Department of Surgery [facility] Pager [phone] Patient seen and evaluated with staff Transition Mgr: Halima Cordero MD Section of Dermatology [facility] Level of Resident Supervision: Direct Supervision [...] 2.5x80 5. Completion RLE angiogram 6. L WATCH TECHNICIAN angiogram 7. Mynx closure Active Non-Hospital Problems [...] home with home health ([facility] PT[facility]) Pager: [phone] YASIR TELLO OT 08/12/2017 Occupational Therapy Rehabilitation [...] 2.5x80 5. Completion RLE angiogram 6. L WATCH TECHNICIAN angiogram 7. Mynx closure Past Medical History: [...] with 24/7 assistance and maximal services) Pager: [phone] NICHOLAS MORA, PT 08/12/2017 Physical Therapy Rehabilitation [...] sit/sit to supine -- Bed Mobility Goal, Knox Level independent -- Bed Mobility Goal, Outcome Achieved -- goal ongoing Goal: Gait Training Goal Stand Alone Therapy Goal Outcome: Ongoing (Interventions Implemented as Appropriate) 08/11/17 1310 08/12/17 1510 Gait Training Goal Gait Training Goal, Date Established 08/11/17 -- Gait Training Goal, Time to Achieve 5 - 7 days -- Gait Training Goal, Knox Level conditional independence -- Gait Training Goal, [...] days -- Transfer Training Goal, Activity Type xwg-xe-swhhd/ykgjv-tl-rfw -- Transfer Train Goal, Knox Level conditional independence -- Transfer Training Goal, [...] MD - 08/11/2017 2:[address] 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 Completion RLE angiogram 6. L WATCH TECHNICIAN angiogram 7. Mynx closure He is very [...] Anticipated Discharge Disposition: inpatient rehabilitation facility Pager: [phone] LAWRENCE GONZALEZ, PT 08/11/2017 Physical Therapy Rehabilitation [...] to sit/sit to supine Bed Mobility Goal, Knox Level independent Goal: Gait Training Goal Stand Alone Therapy Goal Outcome: Ongoing (Interventions Implemented as Appropriate) 08/11/17 1310 Gait Training Goal Gait Training Goal, Date Established 08/11/17 Gait Training Goal, Time to Achieve 5 - 7 days Gait Training Goal, Knox Level conditional independence Gait Training Goal, Assist [...] 7 days Transfer Training Goal, Activity Type vez-uq-mjwzh/mulac-jp-zww Transfer Train Goal, Knox Level conditional independence Plan of [facility] [...] call cabello within reach, Hourly rounding by RN/LIFT TEAM TECHNICIAN. Bed alarm / Chair alarm. ? Patient-specific [...] Hospitalizations Within the Past 30 Days: [facility] 07/20/2017 Anticipated Length Of Stay (If known): Expected Length of Hospitalization: 5-7 days2-3 days Current Decision-Making Capacity: Alert and oriented x 4 Advance Care Planning: on file Kisha Hoang [facility] [phone] Current Coping/Education/Information Needs: pt and spouse state [...] Health/Prescription Coverage: Primary Insurance: MEDICARE Secondary Insurance: [id number] [facility] Prescription Coverage: See above Preferred Pharmacy: [facility] Other: N/A Primary Care Provider: Lovely Vicente MD [phone] Patient/Caregiver Goals of Treatment: Patient plans to return home when medically ready Potential Needs for Transition of Care: Rehab/SNF: N/A Home Health: [facility]. DME: pt has a cane and [...] of care planning. Kaitlin Saha RN Pager: [phone] Plan of Care - Melba Jaramillo RN [...] Overview Goal: Plan of Care Review 08/08/17 6844 Coping/Psychosocial Plan Of Care Reviewed With patient [...] call cabello within reach, Hourly rounding by RN/LIFT TEAM TECHNICIAN. Bed alarm / Chair alarm. Patient-specific fall [...] at bedside and MD TEAM Carrying pager [phone] contacted (via Radio page) and notified of [...] Nobles MD [facility] CARDIOLOGY [place], [place] [address] (Wo rk) 06/10/2022 Office Visit Dermatology Laura Scherer MD [facility] DR TEJA GR-DERMAT OLOGY [place], [place] [address] (Wo rk) documented as of [...] TYPE AND SCREEN Routine 08/09/2017 1:10 ([facility]/CGP/SHANDA) AM EST BASIC METABOLIC PANEL Routine 08/09/2017 [...] [facility] mg/dL [facility] LABORATORY [...] Organization Address City/State/[place] [address] (ABNORMAL) Differential, Automated (08/16/2017 5:08 AM EST) Patholo gist Method Time Signature Neutrophils % 73.9 % [facility] LABORATORY Neutr Abs (ANC) 5.37 1.70 - [facility] 6.10 [facility] x10(3)/[facility] LABORATORY Lymphocytes % 10.1 % [facility] LABORATORY Lymphocytes Abs 0.7 (L) 0.9 - 3.2 [facility] x10(3)/[facility] LABORATORY Monocytes % 10.1 % [facility] LABORATORY Monocyte Abs 0.7 0.3 - 0.9 [facility] x10(3)/[facility] LABORATORY Eosinophils % 5.1 % [facility] LABORATORY Eosinophils Abs 0.4 0.0 - 0.4 [facility] x10(3)/[facility] LABORATORY Basophils % 0.4 % [facility] LAB[facility]ATORY Basophils Abs 0.0 0.0 - 0.1 [facility] x10(3)/[facility] LABORATORY Immature Gran % 0.40 [...] Melisa Gran Abs 0.03 0.00 - 0.04 x10(3)/[facility] Y [facility] LABORATORY Specimen Anatomical Collection Method Collection Time Receive d Time (Source) Location / / Volume Laterality Blood specimen 08/16/2017 5:08 AM 018 5:20 (specimen) EST AM EST Resulting Agency Comment Spec In Lab Yonathan Smith MD HEMATOLOGY ORDERABLES Performing Organization Address City/State/[place] [address] (ABNORMAL) Hemogram (08/16/2017 5:08 AM EST) Analysis Performed At Patho logist Time Signature WBC 7.3 4.0 - 9.5 [facility] x10(3)/[facility] LABORATORY RBC 3.36 (L) 4.58 - [facility] 5.54 [facility] x10(6)/[facility] LABORATORY Hemoglobin 9.7 (L) 13.7 - [place] [place] 16.5 gm/dL [facility] LABORATORY Hematocrit 30.3 (L) 40.5 - [place] 48.5 % [facility] LABORATORY MCV 90.2 82.9 - [facility] LAB[facility] MCH 28.9 27.5 - [place] 32.1 pg [facility] LABORATORY MCHC 32.0 32.0 - [place] 35.7 gm/dL [facility] LABORATORY Platelets 282 145 - 357 [facility] x10(3)/[facility] LABORATORY RDWSD 53.9 (H) 36.0 - [facility] 45.0 [facility] LABORATORY RDWCV 16.5 (H) 11.4 - [facility] 13.8 % [facility] LABORATORY MPV 9.0 7.6 - 12.9 [facility] LAB[facility] nRBC % Auto 0.0 % [facility] LABORATORY nRBC Abs Auto 0.000 0.000 - [facility] 0.000 [facility] x10(3)/[facility] LABORATORY Specimen Anatomical Collection Method Collection Time Receive d Time (Source) Location / / Volume Laterality Blood specimen 08/16/2017 5:08 AM 018 5:20 (specimen) EST AM EST Resulting Agency Comment Spec In Lab Yonathan Smith MD HEMATOLOGY ORDERABLES Performing Organization Address City/State/[place] [address] (ABNORMAL) Basic Metabolic Panel (non-fasting) (08/16/2017 5:08 AM EST) athologist Signature Glucose Lvl 141 65 - 199 [facility] mg/dL [facility] [...] or in patients with acute kidney failure. [email or web address] [email or web address] Specimen Anatomical Collection Method Collection Time Receive d Time (Source) Location / / Volume Laterality Blood specimen 08/16/2017 5:08 AM 018 5:20 (specimen) EST AM EST Resulting Agency Comment Spec In Lab Yonathan Smith MD CHEMISTRY ORDERABLES Performing Organization Address City/State/ZIP Code Phon e Number [place] [phone] (ABNORMAL) Prothrombin Time (08/16/2017 [...] Smith MD HEMATOLOGY ORDERABLES Performing Organization Address City/[facility]/ZIP Code Phon e Number [address] POCT Glucose (08/16/2017 4:09 [...] [facility]/ZIP Code Phon e Number [address] POCT Glucose (08/15/2017 11:56 PM EST) athologist Signature POC Glucose 176 65 - 199 [place] mg/dL [facility] LABORATORY [...] [facility]/ZIP Code Phon e Number [address] POCT Glucose (08/15/2017 8:05 PM EST) athologist Signature POC Glucose 136 65 - 199 [facility] SU mg/dL [facility] [...] Organization Address City/State/[place] [address] (ABNORMAL) POCT Glucose (08/15/2017 [...] Organization Address City/State/[place] [address] POCT Glucose (08/15/2017 12:04 PM EST) athologist Signature POC Glucose 135 65 - 199 [place] mg/dL [facility] [...] Organization Address City/State/[place] [address] POCT Glucose (08/15/2017 7:36 AM EST) athologist Signature POC Glucose 124 65 - 199 [place] mg/dL [facility] [...] City/State/ZIP Code Phon e Number [place] [phone] [facility] LABORATORY Drive (ABNORMAL) Differential, Automated (08/15/2017 6:22 AM EST) [facility] Method Time Signature Neutrophils % 76.1 % [facility] LABORATORY Neutr Abs (ANC) 6.62 (H) 1.70 - [facility] 6.10 [facility] x10(3)/[facility] L LABORATORY Lymphocytes % 9.3 % [facility] LABORATORY Lymphocytes Abs 0.8 (L) 0.9 - 3.2 [facility] x10(3)/[facility] LABORATORY Monocytes % 9.4 % [facility] LABORATORY Monocyte Abs 0.8 0.3 - 0.9 [facility] x10(3)/[facility] LABORATORY Eosinophils % 4.0 % [facility] LABORATORY Eosinophils Abs 0.4 0.0 - 0.4 [facility] x10(3)/[facility] LABORATORY Basophils % 0.6 % [facility] LABORATORY Basophils Abs 0.0 0.0 - 0.1 [facility] x10(3)/[facility] LABORATORY Immature Gran % [...] Gran Abs 0.05 (H) 0.00 - 0.04 x10(3)/[facility] LABORATORY Specimen Anatomical Collection Method Collection Time Receive d Time (Source) Location / / Volume Laterality Blood specimen 08/15/2017 6:22 AM 018 6:33 (specimen) EST AM EST Resulting Agency Comment Spec In Lab Yonathan Smith MD HEMATOLOGY ORDERABLES Performing Organization Address City/State/[place] [address] (ABNORMAL) Hemogram (08/15/2017 6:22 AM EST) Analysis Performed At Patho logist Time Signature WBC 8.7 4.0 - 9.5 [facility] x10(3)/[facility] LABORATORY RBC 3.21 (L) 4.58 - [place] 5.54 [facility] x10(6)/[facility] LABORATORY Hemoglobin 9.1 (L) 13.7 - [facility] 16[facility] gm/dL [facility] LABORATORY Hematocrit 29.0 (L) 40.5 - [facility] 48.5 % [facility] LABORATORY MCV 90.3 82.9 - [facility] 93.1 [facility] LABORATORY MCH 28.3 27.5 - [facility] 32.1 pg [facility] LABORATORY MCHC 31.4 (L) 32.0 - [facility] 35.7 gm/dL [facility] LABORATORY Platelets 254 145 - 357 [facility] x10(3)/[facility] LABORATORY RDWSD 53.9 (H) 36.0 - [facility] 45.0 [facility] LABORATORY RDWCV 16.3 (H) 11.4 - [facility] 13.8 % [facility] LABORATORY MPV 8.8 7.6 - 12.9 [facility] LABORATORY nRBC % Auto 0.0 % [facility] LABORATORY nRBC Abs Auto 0.000 0.000 - [facility] 0.000 [facility] x10(3)/[facility] LABORATORY Specimen Anatomical Collection Method Collection Time Receive d Time (Source) Location / / Volume Laterality Blood specimen 08/15/2017 6:22 AM 018 6:33 (specimen) EST AM EST Resulting Agency Comment Spec In Lab Yonathan Smith MD HEMATOLOGY ORDERABLES Performing Organization Address City/State/[place] [address] (ABNORMAL) Basic Metabolic Panel (non-fasting) (08/15/2017 6:22 AM EST) P athologist Signature Glucose Lvl 118 65 - 199 [facility] mg/dL [facility] LABORATORY [...] [facility] LAB[facility]ORY Estimated GFR >60 >=60 [facility] LABORATORY Comment: The reported eGFR should be multiplied b y 1.2 for patients. The MDRD is not an appropriate measure o f renal function for patients with body mass extremes or in patients with acute kidney failure. http://[email or web address] http://Swiftype/DHMCnkf Specimen Anatomical Collection Method Collection Time Receive d Time (Source) Location / / Volume Laterality Blood specimen 08/15/2017 6:22 AM 018 6:33 (specimen) EST AM EST Resulting Agency Comment Spec In Lab Yonathan Smith MD CHEMISTRY ORDERABLES Performing Organization Address City/State/[place] [address] (ABNORMAL) Prothrombin Time (08/15/2017 [...] Smith MD HEMATOLOGY ORDERABLES Performing Organization Address City/[facility]/ZIP Code Phon e Number [address] POCT Glucose (08/15/2017 4:33 AM EST) athologist Signature POC Glucose 164 65 - 199 [facility]dL [facility] [...] [facility]/ZIP Code Phon e Number [address] POCT Glucose (08/15/2017 12:12 AM EST) athologist Signature POC Glucose 89 65 - 199 [facility]dL [facility] [...] [facility]/[place] [address] (ABNORMAL) POCT Glucose (08/14/2017 [...] Organization Address City/State/[place] [address] POCT Glucose (08/14/2017 5:11 PM EST) athologist Signature POC Glucose 174 65 - 199 [facility]/dL [facility] [...] Organization Address City/State/[place] [address] POCT Glucose (08/14/2017 12:10 PM EST) athologist Signature POC Glucose 141 65 - 199 [place] mg/dL [facility] [...] Address City/State/ZIP Code Phon e Number [address] POCT Glucose (08/14/2017 8:07 AM EST) P athologist Signature POC Glucose 158 65 - 199 [facility] mg/dL [facility] LABORATORY [...] Organization Address City/State/[place] [address] (ABNORMAL) Differential, Automated (08/14/2017 4:52 AM EST) Patholo gist Method Time Signature Neutrophils % 78.6 % [facility] LABORATORY Neutr Abs (ANC) 7.70 (H) 1.70 - [facility] 6.10 [facility] x10(3)/[facility] LABORATORY Lymphocytes % 7.8 % [facility] LABORATORY Lymphocytes Abs 0.8 (L) 0.9 - 3.2 [facility] x10(3)/[facility] LABORATORY Monocytes % 8.8 % [facility] LABORATORY Monocyte Abs 0.9 0.3 - 0.9 [facility] x10(3)/[facility] LABORATORY Eosinophils % 4.0 % [facility] LABORATORY Eosinophils Abs 0.4 0.0 - 0.4 [facility] x10(3)/[facility] LABORATORY Basophils % 0.5 % [facility] LABORATORY Basophils Abs 0.0 0.0 - 0.1 [facility] x10(3)/[facility] LABORATORY Immature Gran % [...] Melisa Gran Abs 0.03 0.00 - 0.04 x10(3)/[facility] LABORATORY Specimen Anatomical Collection Method Collection Time Receive d Time (Source) Location / / Volume Laterality Blood specimen 08/14/2017 4:52 AM 018 5:08 (specimen) EST AM EST Resulting Agency Comment Spec In Lab Yonathan Smith MD HEMATOLOGY ORDERABLES Performing Organization Address City/State/[place] [address] (ABNORMAL) Hemogram (08/14/2017 4:52 AM EST) Analysis Performed At Patho logist Time Signature WBC 9.8 (H) 4.0 - 9.5 [facility] x[facility](3[facility] LABORATORY RBC 3.32 (L) 4.58 - [facility] 5.54 [facility] x10(6)/[facility] LABORATORY Hemoglobin 9.5 (L) 13.7 - [facility] 16.5 gm/dL [facility] LABORATORY Hematocrit 30.3 (L) 40.5 - [facility] 48.5 % [facility] LABORATORY MCV 91.3 82.9 - [facility] 93.1 [facility] LABORATORY MCH 28.6 27.5 - [facility] 32.1 pg [facility] LABORATORY MCHC 31.4 (L) 32.0 - [facility] 35.7 gm/dL [facility] LABORATORY Platelets 263 145 - 357 [facility] x10(3)/[facility] RDWSD 54.8 (H) 36.0 - [facility] 45.0 [facility] LABORATORY RDWCV 16.5 (H) 11.4 - [facility] SU 13.8 % [facility] LABORATORY MPV 9.1 7.6 - 12.9 [facility]ORY nRBC % Auto 0.0 % [facility] LABORATORY nRBC Abs Auto 0.000 0.000 - [facility] SU 0.000 [facility] x10(3)/[facility] LABORATORY Specimen Anatomical Collection Method Collection Time Receive d Time (Source) Location / / Volume Laterality Blood specimen 08/14/2017 4:52 AM 018 5:08 (specimen) EST AM EST Resulting Agency Comment Spec In Lab Yonathan Smith MD HEMATOLOGY ORDERABLES Performing Organization Address City/[facility]/ZIP Code Phon e Number [place] [phone] [address]OS[address] Drive (ABNORMAL) Prothrombin Time (08/14/2017 [...] Smith MD HEMATOLOGY ORDERABLES Performing Organization Address City/[facility]/[place] [address] (ABNORMAL) Basic Metabolic Panel (non-fasting) (08/14/2017 4:52 AM EST) athologist Signature Glucose Lvl 135 65 - 199 [facility] mg/dL [facility] LABORATORY [...] or in patients with acute kidney failure. [email or web address] [email or web address]/DHnkf Specimen Anatomical Collection Method Collection Time Receive d Time (Source) Location / / Volume Laterality Blood specimen 08/14/2017 4:52 AM 018 5:08 (specimen) EST AM EST Resulting Agency Comment Spec In Lab Yonathan Smith MD CHEMISTRY ORDERABLES Performing Organization Address City/[facility]/ZIP Code Phon e Number [address] POCT Glucose (08/14/2017 3:56 AM EST) athologist Signature POC Glucose 135 65 - 199 [facility] mg/dL [facility] LABORATORY [...] Performing Organization Address City/[facility]/ZIP [facility] Phon e Number [address] POCT Glucose (08/13/2017 11:13 PM EST) athologist Signature POC Glucose 118 65 - 199 [facility] mg/dL [facility] LABORATORY [...] [facility]/[place] [address] (ABNORMAL) POCT Glucose (08/13/2017 [...] Organization Address City/State/[place] [address] POCT Glucose (08/13/2017 4:02 [...] Organization Address City/State/[place] [address] POCT Glucose (08/13/2017 11:31 [...] Address City/State/ZIP Code Phon e Number [address] (ABNORMAL) POCT Glucose (08/13/2017 10:16 AM EST) P athologist Signature POC Glucose 211 (H) 65 - 199 [facility] mg/dL [facility] [...] Organization Address City/State/[place] [address] JULIAN, legs, multiple levels (08/13/2017 7:42 AM EST) Component Value Ref Test Analysis Performed At Patholo gist Range Method Time Signature VB Text Department: Vascular Surgery Lab VASCUBASE Report Patient: [id number] (GREGORY HOANG) CPT: 86530 ICD10: I99.8 Referring Physician: YONATHAN SMITH ?? Indications: s/p R 1,2,3 toe amps with red left foot, need n ew baseline Diabetes mellitus: yes ICD10 Diagnosis Code: I99.8 Findings: Right ?Pressure (mm Hg) ?? JULIAN ??Waveform ?TBI ?? Brachial Artery ?138 ? Dorsalis Pedis (Ankle) Arter y ?132 ? 0.94 ??Hopkins- Biphasic ? Posterior Tibial (Ankle) Art anila ??154 ? 1.10 ??Hopkins-Biphasic ? Fourth Toe ? 67 ? 0.48 [...] [facility] mg/dL [facility] LABORATORY [...] Organization Address City/State/[place] [address] (ABNORMAL) Differential, Automated (08/13/2017 5:33 AM EST) Patholo gist Method Time Signature Neutrophils % 77.8 % [facility] LABORATORY Neutr Abs (ANC) 7.83 (H) 1.70 - [facility] 6.10 [facility] x10(3)/[facility] L LABORATORY Lymphocytes % 8.4 % [facility] LABORATORY Lymphocytes Abs 0.8 (L) 0.9 - 3.2 [facility] x10(3)/[facility] LABORATORY Monocytes % 8.3 % [facility] LABORATORY Monocyte Abs 0.8 0.3 - 0.9 [facility] x10(3)/[facility] LABORATORY Eosinophils % 4.6 % [facility] LABORATORY Eosinophils Abs 0.5 (H) 0.0 - 0.4 [facility] x10(3)/[facility] LABORATORY Basophils % 0.5 % [facility] LABORATORY Basophils Abs 0.0 0.0 - 0.1 [facility] x10(3)/[facility] LABORATORY Immature Gran % [...] Melisa Gran Abs 0.04 0.00 - 0.04 x10(3)/[facility] LABORATORY Specimen Anatomical Collection Method Collection Time Receive d Time (Source) Location / / Volume Laterality Blood specimen 08/13/2017 5:33 AM 018 6:04 (specimen) EST AM EST Resulting Agency Comment Spec In Lab Yonathan Smith MD HEMATOLOGY ORDERABLES Performing Organization Address City/State/[place] [address] (ABNORMAL) Hemogram (08/13/2017 5:33 AM EST) Analysis Performed At Patho logist Time Signature WBC 10.1 (H) 4.0 - 9.5 [facility] x10(3)/[facility] LABORATORY RBC 3.21 (L) 4.58 - [facility] 5.54 [facility] x10(6)/[facility] LABORATORY Hemoglobin 9.2 (L) 13.7 - [place] [facility] 16.5 gm/dL [facility] LABORATORY Hematocrit 29.6 (L) 40.5 - [place] 48.5 % [facility] LABORATORY MCV 92.2 82.9 - [facility] 93.1 [facility] LABORATORY MCH 28.7 27.5 - [place] 32.1 pg [facility] LABORATORY MCHC 31.1 (L) 32.0 - [place] 35.7 gm/dL [facility] LABORATORY Platelets 263 145 - 357 [facility] x10(3)/[facility] LABORATORY RDWSD 54.8 (H) 36.0 - [place] 45.0 [facility] LABORATORY RDWCV 16.4 (H) 11.4 - [facility] SU 13.8 % [facility] LABORATORY MPV 9.2 7.6 - 12.9 [facility] LABORATORY nRBC % Auto 0.0 % [facility] LABORATORY nRBC Abs Auto 0.000 0.000 - [place] 0.000 [facility] x10(3)/[facility] LABORATORY Specimen Anatomical Collection Method Collection Time Receive d Time (Source) Location / / Volume Laterality Blood specimen 08/13/2017 5:33 AM 018 6:04 (specimen) EST AM EST Resulting Agency Comment Spec In Lab Yonathan Smith MD HEMATOLOGY ORDERABLES Performing Organization Address City/State/[place] [address] (ABNORMAL) Prothrombin Time (08/13/2017 [...] Organization Address City/State/[place] [address] (ABNORMAL) Basic Metabolic Panel (non-fasting) (08/13/2017 5:33 AM EST) athologist Signature Glucose Lvl 126 65 - 199 [facility] mg/dL [facility] LABORATORY [...] [facility] LABORATORY Estimated GFR >60 >=60 [facility] LABORATORY Comment: The reported eGFR should be multiplied b y 1.2 for patients. The MDRD is not an appropriate measure o f renal function for patients with body mass extremes or in patients with acute kidney failure. http://Swiftype/DHnkdep http://Swiftype/DHMCnkf Specimen Anatomical Collection Method Collection Time Receive d Time (Source) Location / / Volume Laterality Blood specimen 08/13/2017 5:33 AM 018 6:04 (specimen) EST AM EST Resulting Agency Comment Spec In Lab Yonathan Smith MD CHEMISTRY ORDERABLES Performing Organization Address City/[facility]/ZIP Code Phon e Number [address] POCT Glucose (08/13/2017 4:29 AM EST) athologist Signature POC Glucose 111 65 - 199 [place] mg/dL [facility] [...] Performing Organization Address City/[facility]/ZIP [facility] Phon e Number [address] POCT Glucose (08/12/2017 11:28 PM EST) athologist Signature POC Glucose 164 65 - 199 [place] mg/dL [facility] [...] [facility]/ZIP Code Phon e Number [address] (ABNORMAL) POCT Glucose (08/12/2017 7:40 PM EST) athologist Signature POC Glucose 209 (H) 65 - 199 [facility] SU mg/dL [facility] [...] Address City/State/ZIP Code Phon e Number [address] POCT Glucose (08/12/2017 4:24 [...] Address City/State/ZIP Code Phon e Number [address] POCT Glucose (08/12/2017 12:00 [...] Address City/State/ZIP Code Phon e Number [address] POCT Glucose (08/12/2017 7:25 [...] City/State/ZIP Code Phon e Number [place] [phone]OSPITAL LAB[address]ORY Drive (ABNORMAL) Differential, Automated (08/12/2017 6:29 AM EST) [facility] Method Time Signature Neutrophils % 78.7 % [facility] LABORATORY Neutr Abs (ANC) 7.94 (H) 1.70 - [facility] 6.10 [facility] x10(3)/[facility] LABORATORY Lymphocytes % 8.8 % [facility] LABORATORY Lymphocytes Abs 0.9 0.9 - 3.2 [facility] x10(3)/[facility] LABORATORY Monocytes % 7.8 % [facility] LABORATORY Monocyte Abs 0.8 0.3 - 0.9 [facility] x10(3)/[facility] LABORATORY Eosinophils % 3.9 % [facility] LABORATORY Eosinophils Abs 0.4 0.0 - 0.4 [facility] x10(3)/[facility] LABORATORY Basophils % 0.3 % [facility] LABORATORY Basophils Abs 0.0 0.0 - 0.1 [facility] x10(3)/[facility] LABORATORY Immature Gran % [...] Gran Abs 0.05 (H) 0.00 - 0.04 x10(3)/[facility] LABORATORY Specimen Anatomical Collection Method Collection Time Receive d Time (Source) Location / / Volume Laterality Blood specimen 08/12/2017 6:29 AM 018 6:38 (specimen) EST AM EST Resulting Agency Comment Spec In Lab Yonathan Smith MD HEMATOLOGY ORDERABLES Performing Organization Address City/State/ZIP Code Phon e Number [place] [phone]OS[address] LAB[address] Drive (ABNORMAL) Hemogram (08/12/2017 6:29 AM EST) Analysis Performed At Patho logist Time Signature WBC 10.1 (H) 4.0 - 9.5 [facility] x10(3)/[facility] LABORATORY RBC 3.02 (L) 4.58 - [place] [facility] 5.54 [facility] x10(6)/[facility] LABORATORY Hemoglobin 8.7 (L) 13.7 - [facility] 16.5 gm/dL [facility] LABORATORY Hematocrit 28.1 (L) 40.5 - [facility] 48.5 % [facility] LABORATORY MCV 93.0 82.9 - [facility] 93.1 [facility] LABORATORY MCH 28.8 27.5 - [facility] 32.1 pg [facility] LABORATORY MCHC 31.0 (L) 32.0 - [facility] 35.7 gm/dL [facility] LABORATORY Platelets 223 145 - 357 [facility] x10(3)/[facility] LABORATORY RDWSD 56.1 (H) 36.0 - [facility] 45.0 [facility] LABORATORY RDWCV 16.4 (H) 11.4 - [facility] 13.8 % [facility] LABORATORY MPV 9.0 7.6 - 12.9 [facility] LABORATORY nRBC % Auto 0.0 % [facility] LABORATORY nRBC Abs Auto 0.000 0.000 - [facility] 0.000 [facility] x10(3)/[facility] LABORATORY Specimen Anatomical Collection Method Collection Time Receive d Time (Source) Location / / Volume Laterality Blood specimen 08/12/2017 6:29 AM 018 6:38 (specimen) EST AM EST Resulting Agency Comment Spec In Lab Yonathan Smith MD HEMATOLOGY ORDERABLES Performing Organization Address City/State/ZIP Code Phon e [place] [address] (ABNORMAL) Prothrombin Time (08/12/2017 [...] Organization Address City/State/[place] [address] (ABNORMAL) Basic Metabolic Panel (non-fasting) (08/12/2017 6:29 AM EST) P athologist Signature Glucose Lvl 151 65 - 199 [facility] mg/dL [facility] LABORATORY [...] [facility] LABORATORY Estimated GFR >60 >=60 [facility] LABORATORY Comment: The reported eGFR should be multiplied b y 1.2 for patients. The MDRD is not an appropriate measure o f renal function for patients with body mass extremes or in patients with acute kidney failure. http://Swiftype/DHnkdep http://Swiftype/DHMCnkf Specimen Anatomical Collection Method Collection Time Receive d Time (Source) Location / / Volume Laterality Blood specimen 08/12/2017 6:29 AM 018 6:38 (specimen) EST AM EST Resulting Agency Comment Spec In Lab Yonathan Smith MD CHEMISTRY ORDERABLES Performing Organization Address City/[facility]/[place] [address] POCT Glucose (08/12/2017 4:08 AM EST) athologist Signature POC Glucose 181 65 - 199 [facility] [...] [facility]/[place] [address] (ABNORMAL) POCT Glucose (08/12/2017 12:17 AM EST) athologist Signature POC Glucose 221 (H) 65 - 199 [facility]dL [facility] [...] [facility]/[place] [address] (ABNORMAL) POCT Glucose (08/11/2017 [...] Organization Address City/State/[place] [address] POCT Glucose (08/11/2017 5:59 PM EST) athologist Signature POC Glucose 169 65 - 199 [facility] mg/dL [facility]/[place] [address] (ABNORMAL) POCT Glucose (08/11/2017 4:08 PM EST) athologist Signature POC Glucose 240 (H) 65 - 199 [facility]dL [facility] [...] Organization Address City/State/[place] [address] POCT Glucose (08/11/2017 12:04 PM EST) athologist Signature POC Glucose 182 65 - 199 [facility] [...] Address City/State/ZIP Code Phon e Number [address] POCT Glucose (08/11/2017 7:31 AM EST) athologist Signature POC Glucose 156 65 - 199 [facility] mg/dL [facility] [...] Address City/State/ZIP Code Phon e Number [address] (ABNORMAL) Differential, Automated (08/11/2017 6:16 AM EST) [facility] gist Method Time Signature Neutrophils % 83.7 % [facility] LABORATORY Neutr Abs (ANC) 10.76 (H) 1.70 - [facility] 6.10 [facility] x10(3)/[facility] L LABORATORY Lymphocytes % 6.0 % [facility] LABORATORY Lymphocytes Abs 0.8 (L) 0.9 - 3.2 [facility] x10(3)/[facility] LABORATORY Monocytes % 7.5 % [facility] LABORATORY Monocyte Abs 1.0 (H) 0.3 - 0.9 [facility] x10(3)/[facility] LABORATORY Eosinophils % 2.0 % [facility] LABORATORY Eosinophils Abs 0.3 0.0 - 0.4 [facility] x10(3)/[facility] LABORATORY Basophils % 0.3 % [facility] LABORATORY Basophils Abs 0.0 0.0 - 0.1 [facility] x10(3)/[facility] LABORATORY Immature Gran % [...] Gran Abs 0.06 (H) 0.00 - 0.04 x10(3)/[facility] LABORATORY Specimen Anatomical Collection Method Collection Time Receive d Time (Source) Location / / Volume Laterality Blood specimen 08/11/2017 6:16 AM 018 6:24 (specimen) EST AM EST Resulting Agency Comment Spec In Lab Yonathan Smith MD HEMATOLOGY ORDERABLES Performing Organization Address City/State/[place] [address] (ABNORMAL) Hemogram (08/11/2017 6:16 AM EST) Analysis Performed At Patho logist Time Signature WBC 12.9 (H) 4.0 - 9.5 [facility] x10(3)/[facility] LABORATORY RBC 3.28 (L) 4.58 - [facility] 5.54 [facility] x10(6)/[facility] LABORATORY Hemoglobin 9.5 (L) 13.7 - [facility] 16.5 gm/dL [facility] LABORATORY Hematocrit 29.8 (L) 40.5 - [facility] 48.5 % [facility] LABORATORY MCV 90.9 82.9 - [facility] 93.1 fL [facility] LABORATORY MCH 29.0 27.5 - [facility] 32.1 pg [facility] LABORATORY MCHC 31.9 (L) 32.0 - [facility] 35.7 gm/dL [facility] LABORATORY Platelets 236 145 - 357 [facility] x10(3)/[facility] LABORATORY RDWSD 53.5 (H) 36.0 - [facility] 45.0 [facility] LABORATORY RDWCV 16.3 (H) 11.4 - [facility] 13.8 % [facility] LABORATORY MPV 8.8 7.6 - 12.9 [facility] LABORATORY nRBC % Auto 0.0 % [facility] LABORATORY nRBC Abs Auto 0.000 0.000 - [facility] 0.000 [facility] x10(3)/[facility] LABORATORY Specimen Anatomical Collection Method Collection Time Receive d Time (Source) Location / / Volume Laterality Blood specimen 08/11/2017 6:16 AM 018 6:24 (specimen) EST AM EST Resulting Agency Comment Spec In Lab Yonathan Smith MD HEMATOLOGY ORDERABLES Performing Organization Address City/[facility] Phon e Number [address] (ABNORMAL) Prothrombin Time (08/11/2017 [...] Smith MD HEMATOLOGY ORDERABLES Performing Organization Address City/[facility] Phon e Number [address] Basic Metabolic Panel (non-fasting) (08/11/2017 6:16 AM EST) P athologist Signature Glucose Lvl 139 65 - 199 [facility] mg/dL [facility] LABORATORY [...] [facility] LABORATORY Estimated GFR >60 >=60 [facility] LABORATORY Comment: The reported eGFR should be multiplied b y 1.2 for patients. The MDRD is not an appropriate measure o f renal function for patients with body mass extremes or in patients with acute kidney failure. http://[employer]/DHnkdep http://[employer]/DHMCnkf Specimen Anatomical Collection Method Collection Time Receive d Time (Source) Location / / Volume Laterality Blood specimen 08/11/2017 6:16 AM 018 6:24 (specimen) EST AM EST Resulting Agency Comment Spec In Lab Yonathan Smith MD CHEMISTRY ORDERABLES Performing Organization Address City/State/[place] [address] POCT Glucose (08/11/2017 4:07 AM EST) P athologist Signature POC Glucose 162 65 - 199 [facility] mg/dL [facility] LABORATORY [...] Organization Address City/State/[place] [address] POCT Glucose (08/10/2017 11:59 [...] Organization Address City/State/[place] [address] POCT Glucose (08/10/2017 8:12 [...] Organization Address City/State/[place] [address] (ABNORMAL) POCT Glucose (08/10/2017 [...] Organization Address City/State/[place] [address] (ABNORMAL) Differential, Automated (08/10/2017 2:30 PM EST) [facility] Method Time Signature Neutrophils % 87.6 % [facility] LABORATORY Neutr Abs (ANC) 9.90 (H) 1.70 - [facility] 6.10 [facility] x10(3)/[facility] LABORATORY Lymphocytes % 4.3 % [facility] LABORATORY Lymphocytes Abs 0.5 (L) 0.9 - 3.2 [facility] x10(3)/[facility] LABORATORY Monocytes % 6.0 % [facility] LABORATORY Monocyte Abs 0.7 0.3 - 0.9 [facility] x10(3)/[facility] LABORATORY Eosinophils % 1.1 % [facility] LABORATORY Eosinophils Abs 0.1 0.0 - 0.4 [facility] x10(3)/[facility] LABORATORY Basophils % 0.4 % [facility] LABORATORY Basophils Abs 0.0 0.0 - 0.1 [facility] x10(3)/[facility] LABORATORY Immature Gran % [...] Gran Abs 0.07 (H) 0.00 - 0.04 x10(3)/[facility] LABORATORY Specimen Anatomical Collection Method Collection Time Receive d Time (Source) Location / / Volume Laterality Blood specimen 08/10/2017 2:30 PM 018 2:48 (specimen) EST PM EST Resulting Agency Comment Spec In Lab Yonathan Smith MD HEMATOLOGY ORDERABLES Performing Organization Address City/State/[place] [address] (ABNORMAL) Hemogram (08/10/2017 2:30 PM EST) Analysis Performed At Patho logist Time Signature WBC 11.3 (H) 4.0 - 9.5 [facility] x10(3)/[facility] LABORATORY RBC 3.13 (L) 4.58 - [facility] 5.54 [facility] x10(6)/[facility] LABORATORY Hemoglobin 8.9 (L) 13.7 - [facility] 16.5 gm/dL [facility] LABORATORY Hematocrit 28.4 (L) 40.5 - [facility] 48.5 % [facility] LABORATORY MCV 90.7 82.9 - [facility] 93.1 [facility] LABORATORY MCH 28.4 27.5 - [facility] 32.1 pg [facility] LABORATORY MCHC 31.3 (L) 32.0 - [facility] 35.7 gm/dL [facility] LABORATORY Platelets 213 145 - 357 [facility] x10(3)/[facility] LABORATORY RDWSD 53.7 (H) 36.0 - [facility] 45.0 [facility] LABORATORY RDWCV 16.4 (H) 11.4 - [facility] 13.8 % [facility] LABORATORY MPV 8.9 7.6 - 12.9 [facility] nRBC % Auto 0.0 % [facility] LABORATORY nRBC Abs Auto 0.000 0.000 - [facility] 0.000 [facility] x10(3)/[facility] LABORATORY Specimen Anatomical Collection Method Collection Time Receive d Time (Source) Location / / Volume Laterality Blood specimen 08/10/2017 2:30 PM 018 2:48 (specimen) EST PM EST Resulting Agency Comment Spec In Lab Yonathan Smith MD HEMATOLOGY ORDERABLES Performing Organization Address City/State/[place] [address] (ABNORMAL) POCT Glucose (08/10/2017 1:50 PM EST) athologist Signature POC Glucose 243 (H) 65 - 199 [facility] mg/dL [facility] [...] Address City/State/ZIP Code Phon e Number [address] POCT Glucose (08/10/2017 11:21 AM EST) athologist Signature POC Glucose 156 65 - 199 [facility] mg/dL [facility] [...] Address City/State/ZIP Code Phon e Number [address] (ABNORMAL) Differential, Automated (08/10/2017 10:28 AM EST) [facility] gist Method Time Signature Neutrophils % 85.3 % [facility] LABORATORY Neutr Abs (ANC) 9.43 (H) 1.70 - [facility] 6.10 [facility] x10(3)/[facility] L LABORATORY Lymphocytes % 5.5 % [facility] LABORATORY Lymphocytes Abs 0.6 (L) 0.9 - 3.2 [facility] x10(3)/[facility] LABORATORY Monocytes % 5.9 % [facility] LABORATORY Monocyte Abs 0.6 0.3 - 0.9 [facility] x10(3)/[facility] LABORATORY Eosinophils % 2.1 % [facility] LABORATORY Eosinophils Abs 0.2 0.0 - 0.4 [facility] x10(3)/[facility] LABORATORY Basophils % 0.4 % [facility] LABORATORY Basophils Abs 0.0 0.0 - 0.1 [facility] x10(3)/[facility] LABORATORY Immature Gran % [...] Gran Abs 0.09 (H) 0.00 - 0.04 x10(3)/[facility] LABORATORY Specimen Anatomical Collection Method Collection Time Receive d Time (Source) Location / / Volume Laterality Blood specimen 08/10/2017 10:28 8 (specimen) AM EST 10:35 AM EST Resulting Agency Comment Spec In Lab Yonathan Smith MD HEMATOLOGY ORDERABLES Performing Organization Address City/State/[place] [address] (ABNORMAL) Hemogram (08/10/2017 10:28 AM EST) Analysis Performed At Patho logist Time Signature WBC 11.0 (H) 4.0 - 9.5 [facility] x10(3)/[facility] LABORATORY RBC 3.02 (L) 4.58 - [facility] SU 5.54 [facility] x10(6)/[facility] LABORATORY Hemoglobin 8.8 (L) 13.7 - [facility] 16.5 gm/dL [facility] LABORATORY Hematocrit 28.1 (L) 40.5 - [facility] 48.5 % [facility] LABORATORY MCV 93.0 82.9 - [facility] 93.1 fL [facility] LABORATORY MCH 29.1 27.5 - [facility] 32.1 pg [facility] LABORATORY MCHC 31.3 (L) 32.0 - [facility] 35.7 gm/dL [facility] LABORATORY Platelets 207 145 - 357 [facility] x10(3)/[facility] LABORATORY RDWSD 55.3 (H) 36.0 - [facility] 45.0 [facility] RDWCV 16.4 (H) 11.4 - [facility] 13.8 % [facility] MPV 9.0 7.6 - 12.9 [facility] LABORATORY nRBC % Auto 0.0 % [facility] nRBC Abs Auto 0.000 0.000 - [facility] 0.000 [facility] x10(3)/[facility] LABORATORY Specimen Anatomical Collection Method Collection Time Receive d Time (Source) Location / / Volume Laterality Blood specimen 08/10/2017 10:28 8 (specimen) AM EST 10:35 AM EST Resulting Agency Comment Spec In Lab Yonathan Smith MD HEMATOLOGY ORDERABLES Performing Organization Address City/State/[place] [address] VS Angiogram/intervention (vascular) (08/10/2017 [...] 2.5x80 5. Completion RLE angiogram 6. L WATCH TECHNICIAN angiogram 7. 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 L WATCH TECHNICIAN access in the distal L WATCH TECHNICIAN. - Closure device: Mynx Technical Procedure: ?The [...] for a 45cm 5F Destination. V18 and Leeds a nd QuickCross catheters were used to [...] bifurcation. Access appeared in the distal R WATCH TECHNICIAN. Closure and sheath removal was performed with [...] 2.5x80 5. Completion RLE angiogram 6. L WATCH TECHNICIAN angiogram 7. 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 L WATCH TECHNICIAN access in the distal L WATCH TECHNICIAN. - Closure device: Mynx Technical Procedure: The [...] for a 45cm 5F Destination. V18 and Leeds a nd QuickCross catheters were used to [...] bifurcation. Access appeared in the distal R WATCH TECHNICIAN. Closure and sheath removal was performed with [...] (ABNORMAL) Differential, Automated (08/10/2017 5:50 AM EST) [facility] Method Time Signature Neutrophils % 80.1 % [facility] LABORATORY Neutr Abs (ANC) 9.01 (H) 1.70 - [facility] 6.10 [facility] x10(3)/[facility] LABORATORY Lymphocytes % 8.8 % [facility] LABORATORY Lymphocytes Abs 1.0 0.9 - 3.2 [facility] x10(3)/[facility] LABORATORY Monocytes % 8.3 % [facility] LABORATORY Monocyte Abs 0.9 0.3 - 0.9 [facility] x10(3)/[facility] LABORATORY Eosinophils % 2.0 % [facility] LABORATORY Eosinophils Abs 0.2 0.0 - 0.4 [facility] x10(3)/[facility] LABORATORY Basophils % 0.4 % [facility] LABORATORY Basophils Abs 0.0 0.0 - 0.1 [facility] x10(3)/[facility] LABORATORY Immature Gran % [...] Gran Abs 0.05 (H) 0.00 - 0.04 x10(3)/[facility] LABORATORY Specimen Anatomical Collection Method Collection Time Receive d Time (Source) Location / / Volume Laterality Blood specimen 08/10/2017 5:50 AM 018 5:59 (specimen) EST AM EST Resulting Agency Comment Spec In Lab Yonathan Smith MD HEMATOLOGY ORDERABLES Performing Organization Address City/State/[place] [address] (ABNORMAL) Hemogram (08/10/2017 5:50 AM EST) Analysis Performed At Patho logist Time Signature WBC 11.3 (H) 4.0 - 9.5 [facility] x10(3)/[facility] LABORATORY RBC 3.15 (L) 4.58 - [facility] 5.54 [facility] x10(6)/[facility] LABORATORY Hemoglobin 8.9 (L) 13.7 - [facility] 16.5 gm/dL [facility] LABORATORY Hematocrit 29.0 (L) 40.5 - [facility] 48.5 % [facility] LABORATORY MCV 92.1 82.9 - [facility] 93.1 [facility] LABORATORY MCH 28.3 27.5 - [facility] 32.1 pg [facility] LABORATORY MCHC 30.7 (L) 32.0 - [facility] 35.7 gm/dL [facility] LABORATORY Platelets 231 145 - 357 [facility] x10(3)/[facility] LABORATORY RDWSD 53.9 (H) 36.0 - [facility] 45.0 [facility] LABORATORY RDWCV 16.2 (H) 11.4 - [facility] 13.8 % [facility] LABORATORY MPV 8.7 7.6 - 12.9 [facility] LABORATORY nRBC % Auto 0.0 % [facility] LABORATORY nRBC Abs Auto 0.000 0.000 - [facility] 0.000 [facility] x10(3)/[facility] LABORATORY Specimen Anatomical Collection Method Collection Time Receive d Time (Source) Location / / Volume Laterality Blood specimen 08/10/2017 5:50 AM 018 5:59 (specimen) EST AM EST Resulting Agency Comment Spec In Lab Yonathan Smith MD HEMATOLOGY ORDERABLES Performing Organization Address City/[facility]/[place] [address] (ABNORMAL) Basic Metabolic Panel (non-fasting) (08/10/2017 5:50 AM EST) P athologist Signature Glucose Lvl 135 65 - 199 [facility] mg/dL [facility] LABORATORY [...] [facility] LABORATORY Estimated GFR >60 >=60 [facility] LABORATORY Comment: The reported eGFR should be multiplied b y 1.2 for patients. The MDRD is not an appropriate measure o f renal function for patients with body mass extremes or in patients with acute kidney failure. http://[employer]/DHnkdep http://[employer]/DHMCnkf Specimen Anatomical Collection Method Collection Time Receive d Time (Source) Location / / Volume Laterality Blood specimen 08/10/2017 5:50 AM 018 5:59 (specimen) EST AM EST Resulting Agency Comment Spec In Lab Yonathan Smith MD CHEMISTRY ORDERABLES Performing Organization Address City/State/[place] [address] (ABNORMAL) Prothrombin Time (08/10/2017 [...] Organization Address City/State/[place] [address] (ABNORMAL) POCT Glucose (08/10/2017 4:01 AM EST) athologist Signature POC Glucose 206 (H) 65 - 199 [facility] mg/dL [facility] [...] Organization Address City/State/[place] [address] POCT Glucose (08/10/2017 2:01 AM EST) athologist Signature POC Glucose 188 65 - 199 [facility] mg/dL [facility]/[place] [address] (ABNORMAL) POCT Glucose (08/09/2017 11:42 PM EST) athologist Signature POC Glucose 283 (H) 65 - 199 [facility] mg/dL [facility]/[place] [address] POCT Glucose (08/09/2017 8:55 PM EST) athologist Signature POC Glucose 182 65 - 199 [facility] mg/dL [facility] [...] Organization Address City/State/[place] [address] (ABNORMAL) APTT (08/09/2017 6:42 [...] Address City/State/ZIP Code Phon e Number [address] POCT Glucose (08/09/2017 4:41 PM EST) athologist Signature POC Glucose 195 65 - 199 [facility] mg/dL [facility] [...] [facility]/[place] [address] POCT Glucose (08/09/2017 12:29 [...] [facility]/ZIP Code Phon e Number [address] POCT Glucose (08/09/2017 9:59 [...] S Performing Organization Address [facility]/ZIP Code Phon e Number [address] Specimen to Pathology (08/09/2017 8:41 AM EST) Specimen Anatomical Collection Method Collection Time Receive d Time (Source) Location / / Volume Laterality AP Specimen 08/09/2017 8:41 AM 8 8:41 EST AM EST Narrative [facility] LABORAT ORY - 08/09/2017 8:41 AM EST Specimen requisition ordered. ??Separate Pathology report to follow Yonathan Smith MD PATHOLOGY/CYTOLOGY ORDERABLE S Performing Organization Address City/[facility]/[place] [address] Surgical Pathology Report (08/09/2017 8:40 AM EST) Component Value Ref Test Analysis Performed At [facility] Range Method Time Signature Surgical [id number] ? Location: [address] [place] [address]; A [facility] Report The signing pathologist has (i) examined the relevant preparation(s) for the [facility] specimen(s) and (ii) rendered or confirmed the diagnosis(es) . HOSPITAL LABORATORY . 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 ?Viable proximal resection margins. Electronically signed by: ??Henrique Saravia MD Verified: ??08/13/2017 ?Pathologist Performed at: ??-[facility] Dept. of Pathology, [place], [place] CLINICAL INFORMATION Specimen Submitted: A - [...] MD PATHOLOGY/CYTOLOGY ORDERABLE S Performing Organization Address City/State/[facility] [place] [address] Anaerobic Culture (08/09/2017 8:30 AM EST) [facility] gist Method Time Signature Anaerobic No anaerobic [facility] Culture organisms [facility] LABORATORY Specimen Anatomical Collection Method Collection [...] [facility]/[place] [address] (ABNORMAL) Abscess/Wound Aspirate Culture (08/09/2017 8:30 AM EST) [facility] Method Time Signature Abscess/Wound Moderate mixed [facility] Aspirate bacterial [place] Culture morphotypes [facility] Emergency normal LABORATORY cutaneous leroy (A) Gram Stain Rare White Blood Cells BARBARA Few Gram Positive Cocci in pairs [place] () [facility] LABORATORY Organism Gram Positive [place] Cocci in pairs [place] () [facility] LABORATORY [...] [facility]/[place] [address] POCT Glucose (08/09/2017 4:28 AM EST) P athologist Signature POC Glucose 128 65 - 199 [facility] mg/dL [facility] LABORATORY [...] Address City/State/ZIP Code Phon e Number [address] ABORH Recheck Status (08/09/2017 1:10 AM EST) [facility] Method Time Signature ABORH Type Completed [facility] LABORATORY Specimen Anatomical Collection Method Collection Time Receive d Time (Source) Location / / Volume Laterality Blood specimen 08/09/2017 1:10 AM 018 1:35 (specimen) EST AM EST Resulting Agency Comment Spec In Lab Yonathan Smith MD BLOOD BANK ORDERABLES Performing Organization Address City/[facility]/[place] [address] Antibody screen (08/09/2017 1:10 AM EST) Patholo gist Method Time Signature Ab Screen Negative [facility] LABORATORY Expires at 08/12/2017 BARBARA ZHAOSU [id number] on: [facility] LABORATORY Specimen Anatomical Collection Method Collection Time Receive d Time (Source) Location / / Volume Laterality Blood specimen 08/09/2017 1:10 AM 018 1:35 (specimen) EST AM EST Resulting Agency Comment Spec In Lab Yonathan Smith MD BLOOD BANK ORDERABLES Performing Organization Address City/[facility] [place] [address] ABO/Rh Typing (08/09/2017 1:10 AM EST) P athologist Signature ABORh Type O Pos [facility] LABORATORY Specimen Anatomical Collection Method Collection Time Receive d Time (Source) Location / / Volume Laterality Blood specimen 08/09/2017 1:10 AM 018 1:35 (specimen) EST AM EST Resulting Agency Comment Spec In Lab Yonathan Smith MD BLOOD BANK ORDERABLES Performing Organization Address City/[facility] [place] [address] (ABNORMAL) APTT (08/09/2017 1:10 AM EST) P athologist Signature PTT 86 (H) 25 - 35 sec [facility] LABORATORY Comment: The recommended therapeutic range for fu ll dose, unfractionated heparin at [facility] is 80 ? 114 seconds. The use [...] City/State/ZIP Code Phon e Number [place] [id number]OS[address] LAB[address]ORY [address] (ABNORMAL) Differential, Automated (08/09/2017 1:10 AM EST) [facility] Method Time Signature Neutrophils % 76.2 % [facility] LABORATORY Neutr Abs (ANC) 8.59 (H) 1.70 - [facility] 6.10 [facility] x10(3)/[facility] LABORATORY Lymphocytes % 11.0 % [facility] LABORATORY Lymphocytes Abs 1.2 0.9 - 3.2 [facility] x10(3)/[facility] LABORATORY Monocytes % 8.4 % [facility] LABORATORY Monocyte Abs 1.0 (H) 0.3 - 0.9 [facility] x10(3)/[facility] LABORATORY Eosinophils % 3.5 % [facility] LABORATORY Eosinophils Abs 0.4 0.0 - 0.4 [facility] x10(3)/[facility] LABORATORY Basophils % 0.5 % [facility] LABORATORY Basophils Abs 0.1 0.0 - 0.1 [facility] x10(3)/[facility] LABORATORY Immature Gran % [...] Gran Abs 0.05 (H) 0.00 - 0.04 x10(3)/[facility] LABORATORY Specimen Anatomical Collection Method Collection Time Receive d Time (Source) Location / / Volume Laterality Blood specimen 08/09/2017 1:10 AM 018 1:19 (specimen) EST AM EST Resulting Agency Comment Spec In Lab Yonathan Smith MD HEMATOLOGY ORDERABLES Performing Organization Address City/State/[place] [address] (ABNORMAL) Hemogram (08/09/2017 1:10 AM EST) Analysis Performed At Patho logist Time Signature WBC 11.3 (H) 4.0 - 9.5 [facility] x10(3)/[facility] LABORATORY RBC 3.47 (L) 4.58 - [facility] 5.54 [facility] x10(6)/[facility] LABORATORY Hemoglobin 10.0 (L) 13.7 - [facility] 16.[facility] gm/dL [facility] LABORATORY Hematocrit 31.9 (L) 40.5 - [facility] 48.5 % [facility] LABORATORY MCV 91.9 82.9 - [facility] 93.1 [facility] LABORATORY MCH 28.8 27.5 - [facility] 32.1 pg [facility] LABORATORY MCHC 31.3 (L) 32.0 - [facility] 35.7 gm/dL [facility] LABORATORY Platelets 234 145 - 357 [facility] x10(3)/[facility] LABORATORY RDWSD 54.0 (H) 36.0 - [facility] 45.0 [facility] LABORATORY RDWCV 16.2 (H) 11.4 - [facility] 13.8 % [facility] LABORATORY MPV 8.7 7.6 - 12.9 [facility] LABORATORY nRBC % Auto 0.0 % [facility] LABORATORY nRBC Abs Auto 0.000 0.000 - [facility] 0.000 [facility] x10(3)/[facility] LABORATORY Specimen Anatomical Collection Method Collection Time Receive d Time (Source) Location / / Volume Laterality Blood specimen 08/09/2017 1:10 AM 018 1:19 (specimen) EST AM EST Resulting Agency Comment Spec In Lab Yonathan Smith MD HEMATOLOGY ORDERABLES Performing Organization Address City/State/[place] [address] (ABNORMAL) Prothrombin Time (08/09/2017 [...] Organization Address City/State/[place] [address] (ABNORMAL) Basic Metabolic Panel (non-fasting) (08/09/2017 1:10 AM EST) athologist Signature Glucose Lvl 108 65 - 199 [facility] mg/dL [facility] LABORATORY [...] Estimated GFR 45 (L) >=60 [place]A Wyatt [facility] LABORATORY Comment: The reported eGFR should be multiplied b y 1.2 for patients. The MDRD is not an appropriate measure o f renal function for patients with body mass extremes or in patients with acute kidney failure. http://Swiftype/DHnkdep http://Swiftype/DHMCnkf Specimen Anatomical Collection Method Collection Time Receive d Time (Source) Location / / Volume Laterality Blood specimen 08/09/2017 1:10 AM 018 1:19 (specimen) EST AM EST Resulting Agency Comment Spec In Lab Yonathan Smith MD CHEMISTRY ORDERABLES Performing Organization Address City/[facility] Code Phon e Number [address] POCT Glucose (08/09/2017 12:05 AM EST) athologist Signature POC Glucose 128 65 - 199 [facility] mg/dL [facility]/[place] [address] (ABNORMAL) POCT Glucose (08/08/2017 7:36 PM EST) athologist Signature POC Glucose 215 (H) 65 - 199 [place] mg/dL [facility] LABORATORY [...] [facility]/[place] [address] (ABNORMAL) POCT Glucose (08/08/2017 6:23 PM EST) athologist Signature POC Glucose 216 (H) 65 - 199 [facility] mg/dL [facility] LABORATORY Comment: Supplemental ranges: <140 mg/dL before meals <180 mg/dL all other times of the day Specimen Anatomical Collection Method Collection Time Receive d Time (Source) Location / / Volume Laterality Blood specimen 08/08/2017 6:23 PM 018 6:23 (specimen) EST PM EST Yonathan Smith MD POINT OF CARE TEST ORDERABLE S Performing Organization Address City/State/ZIP Code [facility] e Number [address] (ABNORMAL) APTT (08/08/2017 6:00 PM EST) athologist [facility] PTT 97 (H) 25 - 35 sec [facility] LABORATORY Comment: The recommended therapeutic range for fu ll dose, unfractionated heparin at [facility] is 80 ? 114 seconds. The use [...] Address City/State/ZIP Code Phon e Number [address] POCT Glucose (08/08/2017 4:42 PM EST) athologist Signature POC Glucose 78 65 - 199 [facility] mg/dL [facility] LABORATORY [...] Address City/State/ZIP Code Phon e Number [address] (ABNORMAL) POCT Glucose (08/08/2017 4:01 PM EST) athologist Signature POC Glucose 58 (L) 65 - 199 [facility] [...] [facility]/[place] [address] POCT Glucose (08/08/2017 11:51 AM EST) athologist Signature POC Glucose 90 65 - 199 [facility]/dL [facility] [...] Organization Address City/State/[place] [address] (ABNORMAL) APTT (08/08/2017 10:27 AM EST) athologist Signature PTT 64 (H) 25 - 35 sec [facility] LABORATORY Comment: The recommended therapeutic range for fu ll dose, unfractionated heparin at [facility] is 80 ? 114 seconds. The use [...] Organization Address City/State/[place] [address] POCT Glucose (08/08/2017 8:02 AM EST) athologist Signature POC Glucose 178 65 - 199 [facility] mg/dL [facility] [...] S Performing Organization Address City/[facility] [place] [address] (ABNORMAL) APTT (08/08/2017 4:51 AM EST) athologist Signature PTT >160 25 - 35 [place] (Critical) sec [facility] LABORATORY Comment: Called by: HOWARD, Read back by: Melba Jaramillo, Date/Time:08/08/17 05:43. The recommended therapeutic range for fu ll dose, unfractionated heparin at [facility] is 80 ? 114 seconds. The use [...] Smith MD HEMATOLOGY ORDERABLES Performing Organization Address City/[facility]/ZIP [facility] [place] [address] (ABNORMAL) Differential, Automated (08/08/2017 4:51 AM EST) Patholo gist Method Time Signature Neutrophils % 77.9 % [facility] LABORATORY Neutr Abs (ANC) 8.17 (H) 1.70 - [facility] 6.10 [facility] x10(3)/[facility] LABORATORY Lymphocytes % 10.3 % [facility] LABORATORY Lymphocytes Abs 1.1 0.9 - 3.2 [facility] x10(3)/[facility] LABORATORY Monocytes % 7.0 % [facility] LABORATORY Monocyte Abs 0.7 0.3 - 0.9 [facility] x10(3)/[facility] LABORATORY Eosinophils % 3.6 % [facility] LABORATORY Eosinophils Abs 0.4 0.0 - 0.4 [facility] x10(3)/[facility] LABORATORY Basophils % 0.5 % [facility] LABORATORY Basophils Abs 0.0 0.0 - 0.1 [facility] x10(3)/[facility] LABORATORY Immature Gran % [...] Gran Abs 0.07 (H) 0.00 - 0.04 x10(3)/[facility] LABORATORY Specimen Anatomical Collection Method Collection Time Receive d Time (Source) Location / / Volume Laterality Blood specimen 08/08/2017 4:51 AM 018 5:14 (specimen) EST AM EST Resulting Agency Comment Spec In Lab Yonathan Smith MD HEMATOLOGY ORDERABLES Performing Organization Address City/State/[place] [address] (ABNORMAL) Hemogram (08/08/2017 4:51 AM EST) Analysis Performed At Patho logist Time Signature WBC 10.5 (H) 4.0 - 9.5 [facility] x10(3)/[facility] LABORATORY RBC 3.27 (L) 4.58 - [place] 5.54 [facility] x10(6)/[facility] LABORATORY Hemoglobin 9.3 (L) 13.7 - [facility] 16.5 gm/dL [facility] LABORATORY Hematocrit 30.3 (L) 40.5 - [facility] 48.5 % [facility] LABORATORY MCV 92.7 82.9 - [facility] 93.1 [facility] LABORATORY MCH 28.4 27.5 - [facility] 32.1 pg [facility] LABORATORY MCHC 30.7 (L) 32.0 - [facility] 35.7 gm/dL [facility] LABORATORY Platelets 252 145 - 357 [facility] x10(3)/[facility] LABORATORY RDWSD 54.6 (H) 36.0 - [facility] 45.0 [facility] RDWCV 16.2 (H) 11.4 - [facility] 13.8 % [facility] LABORATORY MPV 9.1 7.6 - 12.9 [facility] LABORATORY nRBC % Auto 0.0 % [facility] LABORATORY nRBC Abs Auto 0.000 0.000 - [facility] 0.000 [facility] x10(3)/[facility] LABORATORY Specimen Anatomical Collection Method Collection Time Receive d Time (Source) Location / / Volume Laterality Blood specimen 08/08/2017 4:51 AM 018 5:14 (specimen) EST AM EST Resulting Agency Comment Spec In Lab Yonathan Smith MD HEMATOLOGY ORDERABLES Performing Organization Address City/State/[place] [address] (ABNORMAL) Prothrombin Time (08/08/2017 [...] Organization Address City/State/[place] [address] (ABNORMAL) Basic Metabolic Panel (non-fasting) (08/08/2017 4:51 AM EST) athologist Signature Glucose Lvl 229 (H) 65 - 199 [facility] mg/dL [facility] LABORATORY [...] or in patients with acute kidney failure. [email or web address] [email or web address] Specimen Anatomical Collection Method Collection Time Receive d Time (Source) Location / / Volume Laterality Blood specimen 08/08/2017 4:51 AM 018 5:14 (specimen) EST AM EST Resulting Agency Comment Spec In Lab Yonathan Smith MD CHEMISTRY ORDERABLES Performing Organization Address City/[facility]/ZIP Code Phon e Number [address] POCT Glucose (08/08/2017 4:20 AM EST) athologist Signature POC Glucose 193 65 - 199 [facility]/dL [facility]/ZIP Code Phon e Number [address] POCT Glucose (08/07/2017 11:11 PM EST) athologist Signature POC Glucose 124 65 - 199 [facility] mg/dL [facility] [...] [facility]/ZIP Code Phon e Number [address] (ABNORMAL) APTT (08/07/2017 10:18 PM EST) athologist Signature PTT 114 (H) 25 - 35 sec [facility] LABORATORY Comment: The recommended therapeutic range for fu ll dose, unfractionated heparin at [facility] is 80 ? 114 seconds. The use [...] Smith MD HEMATOLOGY ORDERABLES Performing Organization Address City/[facility]/ZIP Code Phon e Number [address] POCT Glucose (08/07/2017 8:10 PM EST) athologist Signature POC Glucose 140 65 - 199 [facility] mg/dL [facility] [...] [facility]/ZIP Code Phon e Number [address] POCT Glucose (08/07/2017 5:27 PM EST) athologist Signature POC Glucose 187 65 - 199 [facility]dL [facility] [...] [facility]/ZIP Code Phon e Number [address] POCT Glucose (08/07/2017 3:29 PM EST) athologist Signature POC Glucose 86 65 - 199 [facility] mg/dL [facility] [...] [facility]/[place] [address] (ABNORMAL) APTT (08/07/2017 2:50 PM EST) athologist [facility] PTT 60 (H) 25 - 35 sec [facility] LABORATORY Comment: The recommended therapeutic range for fu ll dose, unfractionated heparin at [facility] is 80 ? 114 seconds. The use [...] Smith MD HEMATOLOGY ORDERABLES Performing Organization Address City/[facility]/[place] [address] (ABNORMAL) POCT Glucose (08/07/2017 2:23 PM EST) athologist Signature POC Glucose 55 (L) 65 - 199 [facility] mg/dL [facility] [...] [facility]/ZIP Code [place] [address] [facility] LAB[address] Drive POCT Glucose (08/07/2017 12:08 PM EST) P athologist Signature POC Glucose 77 65 - 199 [facility] mg/dL [facility] LABORATORY [...] Address City/State/ZIP Code Phon e Number [address] (ABNORMAL) Differential, Automated (08/07/2017 7:30 AM EST) Patholo gist Method Time Signature Neutrophils % 73.8 % [facility] LABORATORY Neutr Abs (ANC) 7.17 (H) 1.70 - [facility] 6.10 [facility] x10(3)/[facility] LABORATORY Lymphocytes % 12.2 % [facility] LABORATORY Lymphocytes Abs 1.2 0.9 - 3.2 [facility] x10(3)/[facility] LABORATORY Monocytes % 9.0 % [facility] LABORATORY Monocyte Abs 0.9 0.3 - 0.9 [facility] x10(3)[facility] LABORATORY Eosinophils % 3.9 % [facility] LABORATORY Eosinophils Abs 0.4 0.0 - 0.4 [facility] x10(3)/[facility] LABORATORY Basophils % 0.6 % [facility] LABORATORY Basophils Abs 0.1 0.0 - 0.1 [facility] x10(3)/[facility] LABORATORY Immature Gran % [...] Gran Abs 0.05 (H) 0.00 - 0.04 x10(3)/[facility] LABORATORY Specimen Anatomical Collection Method Collection Time Receive d Time (Source) Location / / Volume Laterality Blood specimen 08/07/2017 7:30 AM 018 7:45 (specimen) EST AM EST Resulting Agency Comment Spec In Lab Yonathan Smith MD HEMATOLOGY ORDERABLES Performing Organization Address City/State/[place] [address] (ABNORMAL) Hemogram (08/07/2017 7:30 AM EST) Analysis Performed At Patho logist Time Signature WBC 9.7 (H) 4.0 - 9.5 [facility] x10(3)/[facility] LABORATORY RBC 3.54 (L) 4.58 - [facility] 5.54 [facility] x10(6)/[facility] LABORATORY Hemoglobin 9.9 (L) 13.7 - [facility] 16.5 gm/dL [facility] LABORATORY Hematocrit 32.3 (L) 40.5 - [facility] 48.5 % [facility] LABORATORY MCV 91.2 82.9 - [facility] 93.1 [facility] LABORATORY MCH 28.0 27.5 - [facility] 32.1 pg [facility] LABORATORY MCHC 30.7 (L) 32.0 - [facility] 35.7 gm/dL [facility] LABORATORY Platelets 312 145 - 357 [facility] x10(3)/[facility] LABORATORY RDWSD 53.2 (H) 36.0 - [facility] SU 45.0 [facility] LABORATORY RDWCV 16.0 (H) 11.4 - [facility] 13.8 % [facility] LABORATORY MPV 8.9 7.6 - 12.9 [facility] LABORATORY nRBC % Auto 0.0 % [facility] LABORATORY nRBC Abs Auto 0.000 0.000 - [facility] SU 0.000 [facility] x10(3)/[facility] LABORATORY Specimen Anatomical Collection Method Collection Time Receive d Time (Source) Location / / Volume Laterality Blood specimen 08/07/2017 7:30 AM 018 7:45 (specimen) EST AM EST Resulting Agency Comment Spec In Lab Yonathan Smith MD HEMATOLOGY ORDERABLES Performing Organization Address City/State/[place] [address] (ABNORMAL) Basic Metabolic Panel (non-fasting) (08/07/2017 7:30 AM EST) P athologist Signature Glucose Lvl 80 65 - 199 [facility] mg/dL [facility] LABORATORY [...] or in patients with acute kidney failure. [email or web address] [email or web address]/DHMCnkf Specimen Anatomical Collection Method Collection Time Receive d Time (Source) Location / / Volume Laterality Blood specimen 08/07/2017 7:30 AM 018 7:45 (specimen) EST AM EST Resulting Agency Comment Spec In Lab Yonathan Smith MD CHEMISTRY ORDERABLES Performing Organization Address City/[facility]/ZIP Code Phon e Number [address] POCT Glucose (08/07/2017 7:27 AM EST) athologist Signature POC Glucose 81 65 - 199 [facility] mg/dL [facility] LABORATORY Comment: Supplemental ranges: <140 mg/dL before meals <180 mg/dL all other times of the day Specimen Anatomical Collection Method Collection Time Receive d Time (Source) Location / / Volume Laterality Blood specimen 08/07/2017 7:27 AM 018 7:27 (specimen) EST AM EST Yonathan Smith MD POINT OF CARE TEST ORDERABLE S Performing Organization Address [facility] Phon e Number [address] APTT (08/07/2017 7:04 AM EST) athologist [facility] PTT 34 25 - 35 sec [facility] LABORATORY Comment: The recommended therapeutic range for fu ll dose, unfractionated heparin at [facility] is 80 ? 114 seconds. The use [...] Smith MD HEMATOLOGY ORDERABLES Performing Organization Address City/[facility]/ZIP [facility] [place] [address] (ABNORMAL) Prothrombin Time (08/07/2017 7:04 AM EST) athologist [facility] PT 17.3 (H) 11.8 - 14.0 [facility] [...] Smith MD HEMATOLOGY ORDERABLES Performing Organization Address City/[facility]/ZIP Code Phon e Number [address] POCT Glucose (08/07/2017 4:03 AM EST) athologist Signature POC Glucose 93 65 - 199 [facility] [...] [facility]/ZIP Code Phon e Number [address] POCT Glucose (08/07/2017 12:04 AM EST) athologist Signature POC Glucose 107 65 - 199 [facility]dL [facility] [...] [facility]/ZIP Code Phon e Number [address] POCT Glucose (08/06/2017 7:56 PM EST) P athologist Signature POC Glucose 178 65 - 199 [place] [facility] mg/dL [facility] [...] Organization Address City/State/[place] [address] [id number] (08/06/2017 2:32 PM EST) Component Value Ref Test Analysis Performed At Patholo gist Range Method Time Signature VB Text Department: Vascular Surgery Lab VASCUBASE Report Patient: [id number] (GREGORY HOANG) CPT: 9945022 ICD10: I99.8 Referring Physician: YONATHAN SMITH ?? [...] 24 hours after coming off an insu shbanam drip - At least 24 hours after [...] documented in this encounter Care Teams Rn Or Lvn Relationship Specialty Start Date End Date Lovely Vicente MD PCP - General 04/16/[address] [place] [address] [address] [place] [address] documented as of this encounter
--- OUTSIDE RECORDS SUMMARY | 2022-03-09 15:26 | XMS_ITS | Encounter Summary ---
:1945 Author Organization [facility] [place] [address] Care Team Providers Name Role Phone Lovely Vicente MD Primary Care Provider Reason for Visit Reason Comments Follow-up Encounter Details Date Type Department Care Team Description 08/19/2017 Office Visit Cardiac Surgery at [place], Jock S/P C ABG (coronary [facility], artery bypass graft) [facility] [place], [place] CARDIOTHORACIC [address] SURGERY [phone] [place], [place] [address] Social History Tobacco Use Types [...] office. Best personal regards, Yuan [place] MD [phone] documented in this encounter Plan of Treatment Upcoming Encounters Date Type Specialty Care Team Description 03/26/2022 Office Visit Cardiology Vitaliy Nobles MD [facility] [address] [place], [place] [address] (Wo rk) 06/10/2022 Office Visit Dermatology Laura Scherer MD [facility] DR TE[address] [place], [place] [address] (Wo rk) documented as of [...] 454 ms MUSE SYSTEM (Bezet) Calculated P [place] 20 degrees MUSE SYSTEM Calculated R [place] -29 degrees MUSE SYSTEM Calculated T [place] 121 degrees MUSE SYSTEM INTERPRETATION Normal sinus rhythm MUSE SYSTEM Inferior infarct (cited on or before 25-JAN-2013) Anterior 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) T wave abnormality, consider lateral ischemia Abnormal ECG When compared with ECG of 06-AUG-2017 12:37, No signif icant change was found Confirmed by MD Luci, Taurus Braun ([id number]) on 08/19/2017 1 0:37:38 PM Specimen Anatomical [...] status documented in this encounter Care Teams Automation Manager Relationship Specialty Start Date End Date Lovely Vicente MD PCP - General 04/16/[address] [place] [address] documented as of this encounter
--- OUTSIDE RECORDS SUMMARY | 2022-03-09 15:26 | XMS_ITS | Encounter Summary ---
:1945 Author Organization [facility] [place] [address] Care Team Providers Name Role Phone Lovely Vicente MD Primary Care Provider Encounter Details Date Type Department Care Team Description 08/19/2017 Office Visit Vascular Surgery at [place], PAD (peripheral artery [facility] DECORATOR disease) [facility] [address] [place], [place] VASCULAR SURGERY [address] [place] [address] [phone] Social History Tobacco Use Types Packs/Day Years [...] Vitaliy Nobles MD [facility] CARDIOLOGY [place], [place] [address] (Wo rk) 06/10/2022 Office Visit Dermatology Laura Scherer MD [facility] DR TEJA GR[address]DERMAT [place], [place] [address] (Wo rk) documented as of this encounter Visit Diagnoses Diagnosis PAD (peripheral artery disease) Peripheral vascular disease, unspecified documented in this encounter Care Teams Math Instructor Relationship Specialty Start Date End Date Lovely Vicente MD PCP - General 04/16/[address] [place] [address] documented as of this encounter
--- OUTSIDE RECORDS SUMMARY | 2022-03-09 15:26 | XMS_ITS | Encounter Summary ---
:1945 Author Organization [facility] [place] [address] Care Team Providers Name Role Phone Lovely Vicente MD Primary Care Provider Reason for Referral Diagnostic Test (Routine) - Closed Specialty Diagnoses / Procedures Referred By Contact Refer red To Contact Cardiology Diagnoses Ischemic cardiomyopathy Acute on chronic systolic congestive heart failure Danette Maxwell APRN [facility] Non-Inv Card Lab Procedures Echocardiogram Transthoracic(Leb) [facility] [place] [address] [place] [address] Referral ID Status Reason Start Date Expiration Date Visits V isits Requested Authorized [id number] Closed Specialty 08/30/2017 08/30/2018 1 1 Service Requested Encounter Details Date Type Department Care Team Description 08/26/2017 Office Visit Cardiology at [facility] Danette Maxwell Ischemic cardiomyopathy; [facility] STACIE Gomes Acute on chronic systolic congestive hea rt failure ; Drive [facility] ASCVD (arteriosclerotic card iovascular disease); [place], [place] PAF (paroxysmal atrial fibrillation); [id number] CARDIOLOGY PAD (peripheral artery disease) [phone] [place], [place] [address] Social History Tobacco Use Types Packs/Day Years [...] painful and swollen right foot right d/t [employer]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 [...] Vitaliy Nobles MD [facility] CARDIOLOGY [place], [place] [address] (Wo rk) 06/10/2022 Office Visit Dermatology Laura Scherer MD [facility] DR TEJA GR[address] [place], [place] [address] (Wo rk) documented as of this encounter Results ECHOCARDIOGRAM COMPLETE W CONTRAST (10/07/2017 10:23 AM EDT) athologist Signature EF 45 [facility] Specimen (Source) Anatomical Location Collection Method / Collectio n Time Received Time / Laterality Volume 10/07/2017 Narrative [facility] - 10/07/2017 11:13 AM ED T Procedure: ?Transthoracic Echocardiogram Patient: ?NATALYA Mccollum ? (Age): 1945(72y) Med Rec#: ? [id number] ?Sex: ?M ? Site Loc: ? [facility] ?Ht / Wt: ??173(cm)/82(kg) Pt. Loc: ?Echo Lab ?BSA: ?1.96 Study Date: ?? 10/07/2017 ?Pt. Type: Outpatient Tape: ? Referring: Danette Maxwell Reading: Iker Cuevas ([id number]) Swatch Maker: Yonathan Bocanegra Diagnosis: *ICD-10-PCS Ischemic cardiomyopathy [...] E-wave Vmax ?1.2 ?m/sec ? MV deceleration [id number] ?msec ? MV A-wave Vmax ?1 ?m/sec [...] ? Mid-Inferior ?Hypokinetic ? Mid-Inferoseptal ?Hypokinetic ? Frontier-Septal ? Akinetic ? Frontier-Anterior ? Hypokinetic ? Frontier-Lateral ?Hypokinetic ? Frontier-Inferior ? Hypokinetic ? Frontier-Tip ?Akinetic ? This report has been electronically sign ed by: _ Iker Cuevas M.D. ? 10/07/2017 11:12:34 Images reviewed and interpretation verif ied [facility] Cardiac Ultrasound Laboratory Procedure Note Iker Cuevas MD - 10/07/2017Formatti ng of this note might be different from the original. Procedure: Transthoracic Echocardiogram Patient: NATALYA MCBRIDE(Age): [birth year]72y) Med Rec#: [id number] Sex: M Site Loc: [facility] Ht / Wt: 173(cm)/82(kg) Pt. Loc: Echo Lab BSA: 1.96 Study Date: 10/07/2017 Pt. Type: Outpati ent Tape: Referring: Danette Maxwell Reading: Iker Cuevas ([id number]) Swatch Maker: Yonathan Bocanegra Diagnosis: *ICD-10-PCS Ischemic cardiomyopathy [...] MV E-wave Vmax 1.2 m/sec MV deceleration [id number] msec MV A-wave Vmax 1 m/sec MV [...] Akinetic Mid-Posterolateral Hypokinetic Mid-Inferior Hypokinetic Mid-Inferoseptal Hypokinetic Frontier-Septal Akinetic Frontier-Anterior Hypokinetic Frontier-Lateral Hypokinetic Frontier-Inferior Hypokinetic Frontier-Tip Akinetic This report has been electronically sign ed by: _ Iker Cuevas M.D. 10/07/2017 11:12 :34 Images reviewed and interpretation elvie hwang [facility] Cardiac Ultrasound Laboratory Danette Maxwell APRN ECHO ORDERABLES Performing Organization Address City/State/ZIP Code Phon e Number [facility] Basic Metabolic Panel (non-fasting) (08/26/2017 2:00 PM EST) P athologist Signature Glucose Lvl 98 65 - 199 [facility] mg/dL [facility] Comment: Diabetes: >=200 mg/dL plus symp toms BUN 20 10 - 20 mg/dL [facility] Creatinine 1.17 0.80 - 1.50 mg/dL [facility] [...] mmol/L [facility] Calcium 9.1 8.5 - 10.5 mg/dL KATALINA Yarbrough [facility] Estimated GFR >60 >=60 KATALINA Wyatt [facility] Comment: The reported eGFR should be multiplied b y 1.2 for patients. The MDRD is not an appropriate measure o f renal function for patients with body mass extremes or in patients with acute kidney failure. http://[employer]/DHnkdep http://[employer]/DHMCnkf Specimen Anatomical Collection Method Collection Time Receive d Time (Source) Location / / Volume Laterality Blood specimen 08/26/2017 2:00 PM 018 2:15 (specimen) EST PM EST Resulting Agency Comment Spec In Lab Danette Maxwell STACIE CHEMISTRY ORDERABLES Performing Organization Address City/State/ZIP [place] [address] (ABNORMAL) pro-Brain Natriuretic Peptide (08/26/2017 2:00 PM EST) P athologist Signature ProBNP 2,373 (H) <=125 [facility] pg/mL [facility] Specimen Anatomical Collection Method Collection Time Receive d Time (Source) Location / / Volume Laterality Blood specimen 08/26/2017 2:00 PM 018 2:15 (specimen) EST PM EST Resulting Agency Comment Spec In Lab Danette Maxwell STACIE CHEMISTRY ORDERABLES Performing Organization Address City/State/ZIP [facility] [place] [address] documented in this encounter [...] failure documented in this encounter Care Teams Flooring Helper Relationship Specialty Start Date End Date Lovely Vicente MD PCP - General 04/16/[address] [place] [address] [address] [place] [address] documented as of this encounter
--- OUTSIDE RECORDS SUMMARY | 2022-03-09 15:26 | XMS_ITS | Encounter Summary ---
:1945 Author Organization [facility] [place] [address] Care Team Providers Name Role Phone Lovely Vicente MD Primary Care Provider Encounter Details Date Type Department Care Team Description 08/19/2017 Hospital Encounter XRay at [facility] Martha Teague, S/P CABG x [address] [facility] [place] [address] [place] [address] RD [phone] GENERAL [facility]IC[facility] [place], [place] [address] (Wo rk) Social History [...] Nobles MD [facility] CARDIOLOGY [place], [place] [address] (Wo rk) 06/10/2022 Office Visit Dermatology Laura Scherer MD [facility] DR [address] [place], [place] [address] (Wo rk) documented as [...] in this encounter Care Teams Customer Service Receptionist Relationship Specialty Start Date End Date Lovely Vicente MD PCP - General 04/16/[address] [place] [address] documented as of this encounter
--- OUTSIDE RECORDS SUMMARY | 2022-03-09 15:26 | XMS_ITS | Encounter Summary ---
:1945 Author Organization [facility] [place] [address] Care Team Providers Name Role Phone Lovely Vicente MD Primary Care Provider Encounter Details Date Type Department Care Team Description 08/25/2017 Telephone Pain Management at [facility] [place], [place] [address] Social History Tobacco Use Types Packs/Day [...] Management Center Preauthorization Request Patient: Don Fatima [id number] Fax received from [employer] denying prior authorization for Lidocaine Patches prescribed by Barbra Soares APRN. RX insurance plan: [employer] RX insurance telephone: [phone] Patient Diagnosis: right foot pain secondary to PVD and ischemia ? Previous medications attempted: Tylenol, Tramadol, Dilaudid Authorization/Reference number: [id number] _x_ denied, provider and patient informed _x_ appeal initiated by provider, patient informed Angeles Rodrigez, RN documented in this encounter Plan of Treatment Upcoming Encounters Date Type Specialty Care Team Description 03/26/2022 Office Visit Cardiology Vitaliy Nobles MD [facility] ER DR TADE[address] [place], [place] [address] (Wo rk) 06/10/2022 Office Visit Dermatology Laura Scherer MD [facility] DR TEJA GR-DERMAT [place], [place] [address] (Wo rk) documented as of this encounter Visit Diagnoses Not on filedocumented in this encounter Care Teams Sieve Repairer Relationship Specialty Start Date End Date Lovely Vicente MD PCP - General 04/16/[address] [place] [address] documented as of this encounter
--- OUTSIDE RECORDS SUMMARY | 2022-03-09 15:27 | XMS_ITS | Encounter Summary ---
:1945 Author Organization [facility] [place] [address] Care Team Providers Name Role Phone Lovely Vicente MD Primary Care Provider Reason for Visit Auth/Cert Specialty Diagnoses / Procedures Referred By Contact Refer red To Contact Diagnoses Critical lower limb ischemia CELLULITIS RT FOOT Procedures EMERGENCY Referral ID Status Reason Start Date Expiration Date Visits Requ ested Visits Authorized [id number] 1 1 Encounter Details Date Type Department Care Team Description 08/11/2017 Surgery Main Operating Room Yontahan Smith (M SURG) DRESSING CHANGE Barbara Ocampo MD (FOR OTHER THAN IVAN) [facility] UNDER ANES. (WRVU 0.86) 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 Patient [...] Dorsalis Pedis (Ankle) Artery ?132 ? 0.94 ??Monterey-Biphasic ? Posterior Tibial (Ankle) Artery ??154 ? 1.10 ??Monterey-Biphasic ? Fourth Toe ? 67 ?0.48 ?? [...] the foot. Discharge Conditions/Prognosis: Good Discharge to: [facility] Rehab Discharge Medications: Your Medications New [...] For any problems or questions please call [phone] ZELDA Smith, global position system technician Nurse Clinician For issues on weeknights after 5pm and weekends please call [phone] and ask for the Vascular Fellow ammonia distiller. General Instructions None Future Appointments and Orders Future Appointments Provider Department Dept Phone 08/26/2017 4:00 PM Aurelia Rivera PA V[facility] Surgery [facility] [place] [phone] 09/07/2017 3:00 PM LAB, THREE L Lab 3L [facility] [phone] 09/07/2017 4:00 PM Luz Prescott MD Endocrinology at [place] [phone] 09/09/2017 8:00 AM Barbra Soares APRN Pain Management [facility] [place] [phone] Please bring a list of your current [...] For any problems or questions please call [phone] ZELDA Smith, global position system technician Nurse Clinician For issues on weeknights after 5pm and weekends please call [phone] and ask for the Vascular Fellow ammonia distiller. documented in this encounter Medications at Time [...] Note Patient Destination: [facility] ([facility]) [address] [place] [id number] Transportation: with (at bedside) Time of Discharge: by 12 noon Level of Care: swing Patient Aware: yes Family Notified: yes Md to call report to: Yissel Quintero POLICY WRITER SALES already called RN to call report to: [phone] Shirin Wolf Office of Care Management Pager [phone] Shirin Wagner RN - 08/16/2017 10:50 AM EST [facility] has offered pt swing bed. Pt and accept bed. will transport via car. POLICY WRITER SALES Yissel Quintero aware; d/c paperwork will be completed by 12 noon. [facility] requests pt arrival by 1400 today; POLICY WRITER SALES, RN, and family aware. POLICY WRITER SALES called [facility] and was told that they prefer pt to arrive with wound vac dressing applied but clamped. POLICY WRITER SALES applied new wound vac dressing. RN has [facility] number to call report. PASSR completed; POLICY WRITER SALES paged to request provider signature in highlighted space. Indigo from [facility] notified via email that home wound vac now cancelled; [facility] has picked up from room and order cancelled. Packet started and provided to dip unit operator. Medicare important message explained to patient, patient signed. Copy provided to patient and signature page to OCM for inclusion in pt EMR. Radha Georges - 08/16/2017 10:34 AM EST Office of Care Management/Time Study Clerk Patient Name: Gregory Hoang : 1945 Patient has been offered a swing bed at [facility]. The patient will be transported by private transportation. No MD to MD report necessary Please call Nursing Report to [phone], ask for signal person. Info to accompany patient: Narcotic Prescriptions Copies of Medication Administration Records and IV sheets for past 10 days. Plan: Time Study Clerk will be available to the patient and Gas Or Petroleum Operator-RN and/or Geriatric Personal Care Aide for further assistance. Patient will be discharged to: [facility] [address] [place] [address] [id number] Radha Powers, Time Study Clerk Mira Black, VAMSI - 08/15/2017 10:05 PM EST [address] Flores to ask if he wanted to hold metoprolol dose. BP 95/58. OK to hold this dose Courtney Brito - 08/15/2017 3:26 PM EST Office of Care Management(OCM)/Time Study Clerk(RS)/ D/C Planning re : Patient is medically ready for d/c today. RS has been in contact with [facility] to see if they could offer a bed. [facility] is still reviewing the case and need their MD to review chart prior to accepting or declining. OCM team needs to check in with [place] tomorrow to check on status. 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 Vac in place. Rehab referrals ongoing. Can ambulate in hallway. Change VAC at bedside today. Naty Colindres RN - 08/14/2017 1:33 PM EST Patient Name: Gregory Hoang Patient Age: 72 y.o. Birthdate: 1945 Admit date: 08/06/2017 Attending Physician: Yonathan Smith MD We want him to go to a place for intensive therapy and not at a correction where he will be just sitting there and not getting any therapy. . Contacted by direct care RN, who said that patient and would like information about patient's referral to: [facility] PHONE: [phone] FAX: [phone] CM spoke with RS who said that [...] rehab. Await recommendations from PT. Covering pager #[phone]. 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 Marine Insulator Kaitlin Saha, RN Pager #[phone] Payam Rosales - 08/13/2017 2:37 PM EST Coding Validator Encounter Note Patient Name: Gregory Hoang : [id number] MR#: [id number] Admit Date: 08/06/2017 1:41 PM Hospital Day 7 days Narrative: Visited to introduce and assess acceptance of Coding Validator services. Pt was awake, alert, oriented and in chair and family was there. Assessment:Patient coping positively with stresses of illness/hospitalization at this time. Pt says that he is hoping to get better and his family was there. Pt says that he has family care and supportand taking one day at time. Intervention and Outcome: Provided emotional support and encouraging presence. 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 A letter describing our affiliations was reviewed with them and theywere educated about their right to choose where referrals are placed. Patient requests referral to [facility] [employer]. PHONE: [phone] FAX: [phone]. And Home NPWT (Negative Pressure Wound Therapy) aka wound vac device made available to pt. Serial # confirmed. Reviewed [facility] Proof of Delivery/Assignment of Benefits Statement(POD/AOB) Form w patient or authorized agent signing on behalf of patient. Copy of POD/AOB provided to pt and other copy faxed to [employer] @ fax# [phone] Expected date of discharge: 08/12/2017. 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 Address: [address] [place] [address] [place] [address] (home) Mobile: Telephone Information: Referring Provider: No [...] SETUP performed by Manny Mcknight MD at [facility] OR ??? PRO CABG, ARTERIAL, SINGLE N/A 07/07/2017 @CABG, USING ARTERIAL GRAFT;SINGLE ARTERIAL GRAFT (WRVU 33.75) performed by Yuan Retana MD at [facility] MA[facility] OR ??? PRO CABG, ARTERY-VEIN, TWO N/A 07/07/2017 @CABG, TWO VENOUS GRAFTS & ARTERIAL GRAFT (WRVU 7.93) performed by Yuan Retana MD at [facility] MA[facility] OR ??? PRO COLONOSCOPY, REMV LESN, SNARE 01/16/2014 COLONOSCOPY, POLYPECTOMY, REMOVAL LESION BY SNARE performed by Nohemi Jaimes MD at [facility] ENDOSCOPY ??? PRO ENDOSCOPY W/VIDEO-ASST VEIN HARVEST, CABG Right 07/07/2017 ENDOSCOPIC HARVEST VEIN(S) FOR CABG (WRVU 0.31) performed by Yuan Retana MD at [facility] OR ??? PRO THYROIDECTOMY 03/28/2013 THYROIDECTOMY, TOTAL OR COMPLETE performed by Manny Mcknight MD at [facility] Date/Procedure Med's given/comments 08/10/17 RLE angio with multiple DRY CHAIN OPERATOR to R posterior tibial artery Fentanyl [...] times daily for 10 days. 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 Heparin gtt continues to run. Pt [...] of : 1945 AGE 72 y.o. Address: [address] [place] [address] [place] [address] (home) Mobile: Telephone Information: Referring Provider: No [...] SETUP performed by Manny Mcknight MD at [facility] ??? PRO CABG, ARTERIAL, SINGLE N/A 07/07/2017 @CABG, USING ARTERIAL GRAFT;SINGLE ARTERIAL GRAFT (WRVU 33.75) performed by Yuan Retana MD at [facility] OR ??? PRO CABG, ARTERY-VEIN, TWO N/A 07/07/2017 @CABG, TWO VENOUS GRAFTS & ARTERIAL GRAFT (WRVU 7.93) performed by Yuan Retana MD at [facility] OR ??? PRO COLONOSCOPY, REMV LESN, SNARE 01/16/2014 COLONOSCOPY, POLYPECTOMY, REMOVAL LESION BY SNARE performed by Nohemi Jaimes MD at [facility] ENDOSCOPY ??? PRO ENDOSCOPY W/VIDEO-ASST VEIN HARVEST, CABG Right 07/07/2017 ENDOSCOPIC HARVEST VEIN(S) FOR CABG (WRVU 0.31) performed by Yuan Retana MD at [facility] ??? 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 Unsuccessful draw attempt, another morgue technician will come [facility] to collect blood for PTT test. 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 Vascular resident ammonia distiller and will forward result to the team prior to rounds. 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 Patient [...] SETUP performed by Manny Mcknight MD at [facility] ??? PRO CABG, ARTERIAL, SINGLE N/A 07/07/2017 @CABG, USING ARTERIAL GRAFT;SINGLE ARTERIAL GRAFT (WRVU 33.75) performed by Yuan Retana MD at [facility] OR ??? PRO CABG, ARTERY-VEIN, TWO N/A 07/07/2017 @CABG, TWO VENOUS GRAFTS & ARTERIAL GRAFT (WRVU 7.93) performed by Yuan Retana MD at [facility] MA[facility] OR ??? PRO COLONOSCOPY, REMV LESN, SNARE 01/16/2014 COLONOSCOPY, POLYPECTOMY, REMOVAL LESION BY SNARE performed by Nohemi Jaimes MD at [facility] ENDOSCOPY ??? PRO ENDOSCOPY W/VIDEO-ASST VEIN HARVEST, CABG Right 07/07/2017 ENDOSCOPIC HARVEST VEIN(S) FOR CABG (WRVU 0.31) performed by Yuan Retana MD at [facility] OR ??? PRO THYROIDECTOMY 03/28/2013 THYROIDECTOMY, TOTAL OR COMPLETE performed by Manny Mcknight MD at [facility] OR Functional Status/Social Hx: Quit [...] left blue toes with CTA showing R ICE RESURFACING MACHINE OPERATORS pseudoaneurysm (now thrombosed) and occluded ATs bilaterally. [...] 2.5x80 5. Completion RLE angiogram 6. L ICE RESURFACING MACHINE OPERATORS angiogram 7. 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 - L ICE RESURFACING MACHINE OPERATORS angriogram demonstrated: High femoral bifurcation over the proximal half of the femoral head. L ICE RESURFACING MACHINE OPERATORS access in the distal L ICE RESURFACING MACHINE OPERATORS. - Closure device: Mynx Technical Procedure: The [...] for a 45cm 5F Destination. V18 and Donora and QuickCross catheters were used to select [...] 5F. A stationed picture of the L ICE RESURFACING MACHINE OPERATORS was performed as the patient was noted to have a very high bifurcation. Access appeared in the distal R ICE RESURFACING MACHINE OPERATORS. Closure and sheath removal was performed with [...] PM EST 1440 report called to 5 denison nurse Tessa AGUSTIN documented in this encounter Miscellaneous Notes Plan of Care - Dory Truong RN - 08/16/2017 10:51 AM EST Problem: Patient Care Overview Goal: Plan of Care Review Outcome: Outcome (s) achieved Date Met: 08/16/17 08/14/17 1939 08/16/17 0771 Coping/Psychosocial Plan Of Care Reviewed With -- patient Plan of Care Review Progress improving -- Discussed discharge instructions with pt and pt's spouse. Discharge to [facility]. Goal: Individualization & Mutuality Outcome: Outcome [...] sit/sit to supine -- Bed Mobility Goal, Gilchrist Level independent -- Bed Mobility Goal, Date [...] days -- Transfer Training Goal, Activity Type cvt-sf-emrqj/ztadc-lu-azg -- Transfer Train Goal, Gilchrist Level conditional independence -- Transfer Train Goal, [...] call cabello within reach, Hourly rounding by RN/PATIENT OFFICE REP. Bed alarm / Chair alarm. Patient-specific fall [...] out of bed;fall prevention program maintained;activity supervised Mrak Fall Risk History of Falling 25 -- [...] Smith MD - 08/15/2017 6:28 PM EST [facility] Operative Note Patient Name: Gregory Hoang : [id number] MR#: [id number] Case Date: 08/09/2017 Surgeon: Surgeon(s) and Role: [...] 2.5x80 5. Completion RLE angiogram 6. L ICE RESURFACING MACHINE OPERATORS angiogram 7. Mynx closure Precautions/Restrictions: fall, sternal [...] other (see comments) (or swing bed) Pager: [phone] BASSAM ELIAS, PT 08/14/2017 Inpatient Physical Therapy [...] to Achieve by discharge Gait Training Goal, Gilchrist Level conditional independence;set up required Gait Training [...] these facilities over the weekend except for [facility]. CM spoke with [facility] KANWAL Sandhu RN who said that they do not anticipate any beds over the weekend. Reviewed with patient/ that they need to be aware that patient will need to take the first bed offered at the facilities that they make referrals to. Their choices are: 1- [facility] PHONE: [phone] FAX: [phone] 2- [facility] ([facility]) [address] [place] [address] 3- [facility]) [address] [place] [address] I have discussed Medicare/Private Insurance [...] RS/CM on Wednesday to follow-up. Covering pager #[phone] for today. Plan of Care - Henrique [...] with additional findings of pseudoaneurysm on R ICE RESURFACING MACHINE OPERATORS and bilateral anterior tibial artery occlusions. Was [...] an outpatient once discharged. Have patient call [phone] to set up an appointment. Follow-up: Dermatology will sign-off for now. Please do not hesitate to contact us if you have any questions orconcerns. Impression and Recommendations discussed with primary team on 08/13/2017. Karo Henderson MD Resident in Dermatology Section of Dermatology, Department of Surgery [facility] Pager [phone] Patient seen and evaluated with staff Front End Mechanic: Halima Cordero MD Section of Dermatology [facility] Level of Resident Supervision: Direct Supervision [...] 2.5x80 5. Completion RLE angiogram 6. L ICE RESURFACING MACHINE OPERATORS angiogram 7. Mynx closure Active Non-Hospital Problems [...] home with home health ([facility] PT[facility]OT) Pager: [phone] YASIR TELLO OT 08/12/2017 Occupational Therapy Rehabilitation [...] 2.5x80 5. Completion RLE angiogram 6. L ICE RESURFACING MACHINE OPERATORS angiogram 7. Mynx closure Past Medical History: [...] with 24/7 assistance and maximal services) Pager: [phone] NICHOLAS MORA, JESSIE 08/12/2017 Physical Therapy Rehabilitation [...] sit/sit to supine -- Bed Mobility Goal, Gilchrist Level independent -- Bed Mobility Goal, Outcome Achieved -- goal ongoing Goal: Gait Training Goal Stand Alone Therapy Goal Outcome: Ongoing (Interventions Implemented as Appropriate) 08/11/17 1310 08/12/17 1510 Gait Training Goal Gait Training Goal, Date Established 08/11/17 -- Gait Training Goal, Time to Achieve 5 - 7 days -- Gait Training Goal, Gilchrist Level conditional independence -- Gait Training Goal, [...] days -- Transfer Training Goal, Activity Type uan-ec-eykpd/hnijd-ya-efb -- Transfer Train Goal, Gilchrist Level conditional independence -- Transfer Training Goal, [...] Smith MD - 08/11/2017 2:52 PM EST [facility] Operative Note Patient Name: Gregory Hoang : [id number] MR#: [id number] Case Date: 08/11/2017 Surgeon: Surgeon(s) and Role: [...] 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 Completion RLE angiogram 6. L ICE RESURFACING MACHINE OPERATORS angiogram 7. Mynx closure He is very [...] Anticipated Discharge Disposition: inpatient rehabilitation facility Pager: [phone] LAWRENCE GONZALEZ, PT 08/11/2017 Physical Therapy Rehabilitation [...] to sit/sit to supine Bed Mobility Goal, Gilchrist Level independent Goal: Gait Training Goal Stand Alone Therapy Goal Outcome: Ongoing (Interventions Implemented as Appropriate) 08/11/17 1310 Gait Training Goal Gait Training Goal, Date Established 08/11/17 Gait Training Goal, Time to Achieve 5 - 7 days Gait Training Goal, Gilchrist Level conditional independence Gait Training Goal, Assist [...] 7 days Transfer Training Goal, Activity Type prf-ct-cjtzo/gijym-fp-lcs Transfer Train Goal, Gilchrist Level conditional independence Plan of Care - [...] call cabello within reach, Hourly rounding by RN/PATIENT OFFICE REP. Bed alarm / Chair alarm. ? Patient-specific [...] 04/05/2013 Hospitalizations Within the Past 30 Days: [facility] 07/20/2017 Anticipated Length Of Stay (If known): Expected Length of Hospitalization: 5-7 days2-3 days Current Decision-Making Capacity: Alert and oriented x 4 Advance Care Planning: on file Kisha Hoang [facility] [phone] Current Coping/Education/Information Needs: pt and spouse state [...] Health/Prescription Coverage: Primary Insurance: MEDICARE Secondary Insurance: [employer] [place] Prescription Coverage: See above Preferred Pharmacy: [facility] Other: N/A Primary Care Provider: Lovely Vicente MD [phone] Patient/Caregiver Goals of Treatment: Patient plans to [...] of care planning. Kaitlin Saha RN Pager: [phone] Plan of Care - Melba Jaramillo RN [...] Overview Goal: Plan of Care Review 08/08/17 0784 Coping/Psychosocial Plan Of Care Reviewed With patient [...] call cabello within reach, Hourly rounding by RN/PATIENT OFFICE REP. Bed alarm / Chair alarm. Patient-specific fall [...] at bedside and MD TEAM Carrying pager [phone] contacted (via Radio page) and notified of [...] Nobles MD [facility] CARDIOLOGY [place], [place] [address] (Wo rk) 06/10/2022 Office Visit Dermatology Laura Scherer MD [facility] DR TJEA GR-DERMAT OLOGY [place], [place] [address] (Wo rk) documented as of [...] TYPE AND SCREEN Routine 08/09/2017 1:10 AM ([facility]/CGP/SHANDA) EST BASIC METABOLIC PANEL Routine 08/09/2017 1:10 [...] [facility] mg/dL [facility] Comment: Supplemental ranges: <140 mg/dL before meals <180 mg/dL all other times of the day Specimen Anatomical Collection Method Collection Time Receive d Time (Source) Location / / Volume Laterality Blood specimen 08/16/2017 7:28 AM 018 7:28 (specimen) EST AM EST Yonathan Smith MD POINT OF CARE TEST ORDERABLE S Performing Organization Address City/State/[place] [address] (ABNORMAL) Differential, Automated (08/16/2017 5:08 AM EST) Patholo gist Method Time Signature Neutrophils % 73.9 % [facility] Neutr Abs (ANC) 5.37 1.70 - [facility] 6.10 [facility] x10(3)/[facility] LABORATORY Lymphocytes % 10.1 % [facility] Lymphocytes Abs 0.7 (L) 0.9 - 3.2 [facility] x10(3)/[facility] LABORATORY Monocytes % 10.1 % [facility] Monocyte Abs 0.7 0.3 - 0.9 [facility] x10(3)/[facility] LABORATORY Eosinophils % 5.1 % [facility] Eosinophils Abs 0.4 0.0 - 0.4 [facility] x10(3)/[facility] LABORATORY Basophils % 0.4 % [facility] Basophils Abs 0.0 0.0 - 0.1 [facility] x10(3)/[facility] LABORATORY Immature Gran % 0.40 % [place] [...] Abs 0.03 0.00 - 0.04 x10(3)/[facility] MAR Y [facility] Specimen Anatomical Collection Method Collection Time Receive d Time (Source) Location / / Volume Laterality Blood specimen 08/16/2017 5:08 AM 018 5:20 (specimen) EST AM EST Resulting Agency Comment Spec In Lab Yonathan Smith MD HEMATOLOGY ORDERABLES Performing Organization Address City/State/[place] [address] (ABNORMAL) Hemogram (08/16/2017 5:08 AM EST) Analysis Performed At Patho logist Time Signature WBC 7.3 4.0 - 9.5 [facility] x10(3)/[facility] LABORATORY RBC 3.36 (L) 4.58 - [facility] 5.54 [facility] x10(6)/[facility] LABORATORY Hemoglobin 9.7 (L) 13.7 - [facility] 16.5 gm/dL [facility] Hematocrit 30.3 (L) 40.5 - [facility] 48.5 % [facility] MCV 90.2 82.9 - [facility] 93.1 [facility] LABORATORY MCH 28.9 27.5 - BARBARA RYAN 32.1 pg [facility] MCHC 32.0 32.0 - [facility] 35.7 gm/dL [facility] Platelets 282 145 - 357 [facility] [place] x10(3)/[facility] LABORATORY RDWSD 53.9 (H) 36.0 - [facility]0 [facility] LABORATORY RDWCV 16.5 (H) 11.4 - [facility] 13.8 % [facility] LABORATORY MPV 9.0 7.6 - 12.9 [facility] LABORATORY nRBC % Auto 0.0 % [facility] LABORATORY nRBC Abs Auto 0.000 0.000 - [facility] [place] 0.000 [facility] x10(3)/[facility] LABORATORY Specimen Anatomical Collection Method Collection Time Receive d Time (Source) Location / / Volume Laterality Blood specimen 08/16/2017 5:08 AM 018 5:20 (specimen) EST AM EST Resulting Agency Comment Spec In Lab Yonathan Smith MD HEMATOLOGY ORDERABLES Performing Organization Address City/State/[place] [address] (ABNORMAL) Basic Metabolic Panel (non-fasting) (08/16/2017 5:08 AM EST) athologist Signature Glucose Lvl 141 65 - 199 [facility] mg/dL [facility] LABORATORY Comment: Diabetes: >=200 [...] estions. Chloride 99 98 - 107 mmol/L [facility] LABORATORY CO2 28 22 - 31 mmol/L [facility] LABORATORY Anion Gap 13 5 - 15 mmol/L [facility] LABORATORY Calcium 8.7 8.5 - 10.5 mg/dL [facility] LABORATORY Estimated GFR 57 (L) >=60 [facility] LABORATORY Comment: The reported eGFR should be multiplied b y 1.2 for patients. The MDRD is not an appropriate measure o f renal function for patients with body mass extremes or in patients with acute kidney failure. [email or web address] [email or web address] [email or web address] Specimen Anatomical Collection Method Collection Time Receive d Time (Source) Location / / Volume Laterality Blood specimen 08/16/2017 5:08 AM 018 5:20 (specimen) EST AM EST Resulting Agency Comment Spec In Lab Yonathan Smith MD CHEMISTRY ORDERABLES Performing Organization Address City/State/[place] [address] (ABNORMAL) Prothrombin Time (08/16/2017 5:08 AM EST) athologist Signature PT 25.2 (H) 11.8 - 14.0 [facility] LABORATORY INR 2.3 (H) 0.9 - 1.1 [facility] [...] City/[facility]/ZIP Code Phon e Number [address] POCT Glucose (08/16/2017 4:09 AM EST) athologist Signature POC Glucose 147 65 - 199 [place] mg/dL [facility] LABORATORY Comment: Supplemental [...] City/[facility]/[place] [address] POCT Glucose (08/15/2017 11:56 PM EST) athologist Signature POC Glucose 176 65 - 199 [place] mg/dL [facility] LABORATORY Comment: Supplemental ranges: <140 mg/dL before meals <180 mg/dL all other times of the day Specimen Anatomical Collection Method Collection Time Receive d Time (Source) Location / / Volume Laterality Blood specimen 08/15/2017 11:56 8 (specimen) PM EST 11:56 PM EST Yonathan Smith MD POINT OF CARE TEST ORDERABLE S Performing Organization Address City/State/[place] [address] POCT Glucose (08/15/2017 8:05 PM EST) athologist Signature POC Glucose 136 65 - 199 [place] [facility] mg/dL [facility] LABORATORY Comment: Supplemental [...] Address City/State/ZIP Code Phon e Number [address] (ABNORMAL) POCT Glucose (08/15/2017 4:50 PM EST) athologist Signature POC Glucose 232 (H) 65 - 199 [place] mg/dL [facility] LABORATORY Comment: Supplemental ranges: [...] City/[facility]/[place] [address] POCT Glucose (08/15/2017 12:04 PM EST) athologist Signature POC Glucose 135 65 - 199 [facility] mg/dL [facility] LABORATORY Comment: Supplemental ranges: [...] City/[facility]/[place] [address] POCT Glucose (08/15/2017 7:36 AM EST) athologist Signature POC Glucose 124 65 - 199 [facility] mg/dL [facility] LABORATORY Comment: Supplemental [...] Address City/State/[place] [address] (ABNORMAL) Differential, Automated (08/15/2017 6:22 AM EST) [facility] Method Time Signature Neutrophils % 76.1 % [facility] LABORATORY Neutr Abs (ANC) 6.62 (H) 1.70 - [facility] 6.10 [facility] x10(3)/[facility] L LABORATORY Lymphocytes % 9.3 % [facility] LABORATORY Lymphocytes Abs 0.8 (L) 0.9 - 3.2 [facility] [place] x10(3)/[facility] LABORATORY Monocytes % 9.4 % [facility] LABORATORY Monocyte Abs 0.8 0.3 - 0.9 [facility] [place] x10(3)/[facility] LABORATORY Eosinophils % 4.0 % [facility] LABORATORY Eosinophils Abs 0.4 0.0 - 0.4 [facility] [place] x10(3)/[facility] LABORATORY Basophils % 0.6 % [facility] LABORATORY Basophils Abs 0.0 0.0 - 0.1 [facility] [place] x10(3)/[facility] LABORATORY Immature Gran % 0.60 [...] Gran Abs 0.05 (H) 0.00 - 0.04 x10(3)/[facility] LABORATORY Specimen Anatomical Collection Method Collection Time Receive d Time (Source) Location / / Volume Laterality Blood specimen 08/15/2017 6:22 AM 018 6:33 (specimen) EST AM EST Resulting Agency Comment Spec In Lab Yonathan Smith MD HEMATOLOGY ORDERABLES Performing Organization Address City/State/[place] [address] (ABNORMAL) Hemogram (08/15/2017 6:22 AM EST) Analysis Performed At Patho logist Time Signature WBC 8.7 4.0 - 9.5 [place] x10(3)/[facility] LABORATORY RBC 3.21 (L) 4.58 - [place] 5.54 [facility] x10(6)/[facility] LABORATORY Hemoglobin 9.1 (L) 13.7 - [facility] 16.[facility] gm/dL [facility] LABORATORY Hematocrit 29.0 (L) 40.5 - [facility] 48.5 % [facility] LABORATORY MCV 90.3 82.9 - [facility] 93.1 [facility] LABORATORY MCH 28.3 27.5 - [facility] 32.1 pg [facility] LABORATORY MCHC 31.4 (L) 32.0 - [facility] 35.7 gm/dL [facility] LABORATORY Platelets 254 145 - 357 [facility] x10(3)/[facility] LABORATORY RDWSD 53.9 (H) 36.0 - [place] 45.0 [facility] LABORATORY RDWCV 16.3 (H) 11.4 - [facility] 13.8 % [facility] LABORATORY MPV 8.8 7.6 - 12.9 [facility] LABORATORY nRBC % Auto 0.0 % [facility] LABORATORY nRBC Abs Auto 0.000 0.000 - [place] [facility] 0.000 [facility] x10(3)/[facility] LABORATORY Specimen Anatomical Collection Method Collection Time Receive d Time (Source) Location / / Volume Laterality Blood specimen 08/15/2017 6:22 AM 018 6:33 (specimen) EST AM EST Resulting Agency Comment Spec In Lab Yonathan Smith MD HEMATOLOGY ORDERABLES Performing Organization Address City/State/[place] [address] (ABNORMAL) Basic Metabolic Panel (non-fasting) (08/15/2017 6:22 AM EST) P athologist Signature Glucose Lvl 118 65 - 199 [facility] mg/dL [facility] LABORATORY Comment: Diabetes: >=200 [...] estions. Chloride 98 98 - 107 mmol/L [facility] LABORATORY CO2 29 22 - 31 mmol/L [facility] LABORATORY Anion Gap 11 5 - 15 mmol/L [facility] LABORATORY Calcium 8.8 8.5 - 10.5 mg/dL [facility] LABORATORY Estimated GFR >60 >=60 [facility] LABORATORY Comment: The reported eGFR should be multiplied b y 1.2 for patients. The MDRD is not an appropriate measure o f renal function for patients with body mass extremes or in patients with acute kidney failure. [email or web address] [email or web address] [email or web address] Specimen Anatomical Collection Method Collection Time Receive d Time (Source) Location / / Volume Laterality Blood specimen 08/15/2017 6:22 AM 018 6:33 (specimen) EST AM EST Resulting Agency Comment Spec In Lab Yonathan Smith MD CHEMISTRY ORDERABLES Performing Organization Address City/State/[place] [address] (ABNORMAL) Prothrombin Time (08/15/2017 6:22 AM EST) P athologist Signature PT 21.9 (H) 11.8 - 14.0 [facility] LABORATORY INR 1.9 (H) 0.9 - 1.1 [facility] [...] Address City/State/ZIP Code Phon e Number [address] POCT Glucose (08/15/2017 4:33 AM EST) athologist Signature POC Glucose 164 65 - 199 [facility]/dL [facility] LABOR[facility]ORY Comment: Supplemental ranges: <140 mg/dL before meals <180 mg/dL all other times of the day Specimen Anatomical Collection Method Collection Time Receive d Time (Source) Location / / Volume Laterality Blood specimen 08/15/2017 4:33 AM 018 4:33 (specimen) EST AM EST Yonathan Smith MD POINT OF CARE TEST ORDERABLE S Performing Organization Address City/State/[place] [address] POCT Glucose (08/15/2017 12:12 AM EST) athologist Signature POC Glucose 89 65 - 199 [facility] mg/dL [facility] LABORATORY Comment: Supplemental ranges: <140 mg/dL before meals <180 mg/dL all other times of the day Specimen Anatomical Collection Method Collection Time Receive d Time (Source) Location / / Volume Laterality Blood specimen 08/15/2017 12:12 8 (specimen) AM EST 12:12 AM EST Yonathan Smith MD POINT OF CARE TEST ORDERABLE S Performing Organization Address City/State/[place] [address] (ABNORMAL) POCT Glucose (08/14/2017 8:07 PM EST) athologist Signature POC Glucose 204 (H) 65 - 199 [facility] mg/dL [facility] LABORATORY Comment: Supplemental ranges: <140 mg/dL before meals <180 mg/dL all other times of the day Specimen Anatomical Collection Method Collection Time Receive d Time (Source) Location / / Volume Laterality Blood specimen 08/14/2017 8:07 PM 018 8:07 (specimen) EST PM EST Yonathan Smith MD POINT OF CARE TEST ORDERABLE S Performing Organization Address City/State/ZIP Code Phon e Number [address] POCT Glucose (08/14/2017 5:11 PM EST) athologist Signature POC Glucose 174 65 - 199 [facility]/dL [facility] LABOR[facility] Comment: Supplemental ranges: <140 mg/dL before meals <180 mg/dL all other times of the day Specimen Anatomical Collection Method Collection Time Receive d Time (Source) Location / / Volume Laterality Blood specimen 08/14/2017 5:11 PM 018 5:11 (specimen) EST PM EST Yonathan Smith MD POINT OF CARE TEST ORDERABLE S Performing Organization Address City/State/ZIP Code Phon e Number [address] POCT Glucose (08/14/2017 12:10 PM EST) athologist Signature POC Glucose 141 65 - 199 [facility] mg/dL [facility] LABORATORY Comment: Supplemental [...] Address City/State/ZIP Code Phon e Number [address] POCT Glucose (08/14/2017 8:07 AM EST) P athologist Signature POC Glucose 158 65 - 199 [facility] mg/dL [facility] LABORATORY Comment: Supplemental ranges: <140 mg/dL before meals <180 mg/dL all other times of the day Specimen Anatomical Collection Method Collection Time Receive d Time (Source) Location / / Volume Laterality Blood specimen 08/14/2017 8:07 AM 018 8:07 (specimen) EST AM EST Yonathan Smith MD POINT OF CARE TEST ORDERABLE S Performing Organization Address City/State/[place] [address] (ABNORMAL) Differential, Automated (08/14/2017 4:52 AM EST) Patholo gist Method Time Signature Neutrophils % 78.6 % [facility] LABORATORY Neutr Abs (ANC) 7.70 (H) 1.70 - [facility] 6.10 [facility] x10(3)/[facility] L LABORATORY Lymphocytes % 7.8 % [facility] LABORATORY Lymphocytes Abs 0.8 (L) 0.9 - 3.2 [facility] [place] x10(3)/[facility] LABORATORY Monocytes % 8.8 % [facility] LABORATORY Monocyte Abs 0.9 0.3 - 0.9 [facility] [place] x10(3)/[facility] LABORATORY Eosinophils % 4.0 % [facility] LABORATORY Eosinophils Abs 0.4 0.0 - 0.4 [facility] [place] x10(3)/[facility] LABORATORY Basophils % 0.5 % [facility] LABORATORY Basophils Abs 0.0 0.0 - 0.1 [facility] [place] x10(3)/[facility] LABORATORY Immature Gran % 0.30 % [place] [...] Abs 0.03 0.00 - 0.04 x10(3)/[facility] MAR Y [facility] LABORATORY Specimen Anatomical Collection Method Collection Time Receive d Time (Source) Location / / Volume Laterality Blood specimen 08/14/2017 4:52 AM 018 5:08 (specimen) EST AM EST Resulting Agency Comment Spec In Lab Yonathan Smith MD HEMATOLOGY ORDERABLES Performing Organization Address City/State/[place] [address] (ABNORMAL) Hemogram (08/14/2017 4:52 AM EST) Analysis Performed At Patho logist Time Signature WBC 9.8 (H) 4.0 - 9.5 [facility] x10(3)/[facility] LABORATORY RBC 3.32 (L) 4.58 - [facility] 5.54 [facility] x10(6)/[facility] LABORATORY Hemoglobin 9.5 (L) 13.7 - [facility] 16.[facility] gm/dL [facility] LAB[facility]ATORY Hematocrit 30.3 (L) 40.5 - [facility] 48.5 % [facility] LABORATORY MCV 91.3 82.9 - [facility] 93.1 [facility] LABORATORY MCH 28.6 27.5 - [facility] 32.1 pg [facility] LABORATORY MCHC 31.4 (L) 32.0 - [facility] 35.7 gm/dL [facility] LAB[facility]ORY Platelets 263 145 - 357 [facility] x10(3)/[facility] LABORATORY RDWSD 54.8 (H) 36.0 - [facility] 45.0 [facility] LABORATORY RDWCV 16.5 (H) 11.4 - [facility] 13.8 % [facility] LABORATORY MPV 9.1 7.6 - 12.9 [facility] LABORATORY nRBC % Auto 0.0 % [facility] LABORATORY nRBC Abs Auto 0.000 0.000 - [facility] 0.000 [facility] x10(3)/[facility] LABORATORY Specimen Anatomical Collection Method Collection Time Receive d Time (Source) Location / / Volume Laterality Blood specimen 08/14/2017 4:52 AM 018 5:08 (specimen) EST AM EST Resulting Agency Comment Spec In Lab Yonathan Smith MD HEMATOLOGY ORDERABLES Performing Organization Address City/[facility]/[place] [address] (ABNORMAL) Prothrombin Time (08/14/2017 4:52 AM EST) P athologist Signature PT 18.8 (H) 11.8 - 14.0 [facility] LABORATORY INR 1.6 (H) 0.9 - 1.1 [facility] [...] Organization Address City/State/[place] [address] (ABNORMAL) Basic Metabolic Panel (non-fasting) (08/14/2017 4:52 AM EST) P athologist Signature Glucose Lvl 135 65 - 199 [facility] mg/dL [facility] LABORATORY Comment: Diabetes: >=200 [...] HOSPITAL LABORATORY Estimated GFR 52 (L) >=60 [facility] LABORATORY Comment: The reported eGFR should be multiplied b y 1.2 for patients. The MDRD is not an appropriate measure o f renal function for patients with body mass extremes or in patients with acute kidney failure. [email or web address] [employer] [email or web address] [email or web address] [email or web address] Specimen Anatomical Collection Method Collection Time Receive d Time (Source) Location / / Volume Laterality Blood specimen 08/14/2017 4:52 AM 018 5:08 (specimen) EST AM EST Resulting Agency Comment Spec In Lab Yonathan Smith MD CHEMISTRY ORDERABLES Performing Organization Address City/[facility]/ZIP Code Phon e Number [address] POCT Glucose (08/14/2017 3:56 AM EST) athologist Signature POC Glucose 135 65 - 199 [facility]/dL [facility] Comment: Supplemental ranges: [...] City/[facility]/ZIP Code Phon e Number [address] POCT Glucose (08/13/2017 11:13 PM EST) athologist Signature POC Glucose 118 65 - 199 [facility]/dL [facility] Comment: Supplemental ranges: <140 mg/dL before meals <180 mg/dL all other times of the day Specimen Anatomical Collection Method Collection Time Receive d Time (Source) Location / / Volume Laterality Blood specimen 08/13/2017 11:13 8 (specimen) PM EST 11:13 PM EST Yonathan Smith MD POINT OF CARE TEST ORDERABLE S Performing Organization Address City/State/[place] [address] (ABNORMAL) POCT Glucose (08/13/2017 8:08 PM EST) athologist Signature POC Glucose 204 (H) 65 - 199 [facility] mg/dL [facility] LABORATORY Comment: Supplemental [...] City/[facility]/[place] [address] POCT Glucose (08/13/2017 4:02 PM EST) athologist Signature POC Glucose 145 65 - 199 [facility] mg/dL [facility] LABORATORY Comment: Supplemental ranges: <140 mg/dL before meals <180 mg/dL all other times of the day Specimen Anatomical Collection Method Collection Time Receive d Time (Source) Location / / Volume Laterality Blood specimen 08/13/2017 4:02 PM 018 4:02 (specimen) EST PM EST Yonathan Smith MD POINT OF CARE TEST ORDERABLE S Performing Organization Address City/State/[place] [address] POCT Glucose (08/13/2017 11:31 AM EST) athologist Signature POC Glucose 179 65 - 199 [facility] mg/dL [facility] LABORAT[facility] Comment: Supplemental [...] City/[facility]/[place] [address] (ABNORMAL) POCT Glucose (08/13/2017 10:16 AM EST) P athologist Signature POC Glucose 211 (H) 65 - 199 [facility] Comment: Supplemental ranges: <140 mg/dL before meals <180 mg/dL all other times of the day Specimen Anatomical Collection Method Collection Time Receive d Time (Source) Location / / Volume Laterality Blood specimen 08/13/2017 10:16 8 (specimen) AM EST 10:16 AM EST Yonathan Smith MD POINT OF CARE TEST ORDERABLE S Performing Organization Address City/State/[place] [address] JULIAN, legs, multiple levels (08/13/2017 7:42 AM EST) Component Value Ref Test Analysis Performed At Patholo gist Range Method Time Signature VB Text Department: Vascular Surgery Lab VASCUBASE Report Patient: [id number] (GREGORY HOANG) CPT: 96606 ICD10: I99.8 Referring Physician: YONATHAN SMITH ?? Indications: s/p R 1,2,3 toe amps with red left foot, need n ew baseline Diabetes mellitus: yes ICD10 Diagnosis Code: I99.8 Findings: Right ?Pressure (mm Hg) ?? JULIAN ??Waveform ?TBI ?? Brachial Artery ?138 ? Dorsalis Pedis (Ankle) Arter y ?132 ? 0.94 ??[place]- Biphasic ? Posterior Tibial (Ankle) Art anila ??154 ? 1.10 ??[place]-Biphasic ? Fourth Toe ? 67 ? 0.48 [...] [facility] mg/dL [facility] Comment: Supplemental ranges: <140 mg/dL before meals <180 mg/dL all other times of the day Specimen Anatomical Collection Method Collection Time Receive d Time (Source) Location / / Volume Laterality Blood specimen 08/13/2017 7:33 AM 018 7:33 (specimen) EST AM EST Yonathan Smith MD POINT OF CARE TEST ORDERABLE S Performing Organization Address City/State/Z[place] [address] (ABNORMAL) Differential, Automated (08/13/2017 5:33 AM EST) Patholo gist Method Time Signature Neutrophils % 77.8 % [facility] LABORATORY Neutr Abs (ANC) 7.83 (H) 1.70 - [facility] 6.10 [facility] x10(3)/[facility] L LABORATORY Lymphocytes % 8.4 % [facility] LABORATORY Lymphocytes Abs 0.8 (L) 0.9 - 3.2 [facility] x10(3)/[facility] LABORATORY Monocytes % 8.3 % [facility] LABORATORY Monocyte Abs 0.8 0.3 - 0.9 [facility] x10(3)/[facility] LABORATORY Eosinophils % 4.6 % [facility] LABORATORY Eosinophils Abs 0.5 (H) 0.0 - 0.4 [facility] x10(3)/[facility] LABORATORY Basophils % 0.5 % [facility] LABORATORY Basophils Abs 0.0 0.0 - 0.1 [facility] x10(3)/[facility] LABORATORY Immature Gran % 0.40 % [place] [...] 0.04 0.00 - 0.04 x10(3)/[facility] MAR Y [facility] LABORATORY Specimen Anatomical Collection Method Collection Time Receive d Time (Source) Location / / Volume Laterality Blood specimen 08/13/2017 5:33 AM 018 6:04 (specimen) EST AM EST Resulting Agency Comment Spec In Lab Yonathan Smith MD HEMATOLOGY ORDERABLES Performing Organization Address City/State/[place] [address] (ABNORMAL) Hemogram (08/13/2017 5:33 AM EST) Analysis Performed At Patho logist Time Signature WBC 10.1 (H) 4.0 - 9.5 [facility] x10(3)/[facility] LABORATORY RBC 3.21 (L) 4.58 - [facility] 5.54 [facility] x10(6)/[facility] LABORATORY Hemoglobin 9.2 (L) 13.7 - [facility] 16.5 gm/dL [facility] LABORATORY Hematocrit 29.6 (L) 40.5 - [facility] 48.5 % [facility] LABORATORY MCV 92.2 82.9 - [facility] 93.1 [facility] LABORATORY MCH 28.7 27.5 - [facility] 32.1 pg [facility] LABORATORY MCHC 31.1 (L) 32.0 - [facility] 35.7 gm/dL [facility] LABORATORY Platelets 263 145 - 357 [facility] x10(3)/[facility] LABORATORY RDWSD 54.8 (H) 36.0 - [facility] 45.0 [facility] LABORATORY RDWCV 16.4 (H) 11.4 - [facility] 13.8 % [facility] LABORATORY MPV 9.2 7.6 - 12.9 [facility] LABORATORY nRBC % Auto 0.0 % [facility] LABORATORY nRBC Abs Auto 0.000 0.000 - [facility] 0.000 [facility] x10(3)/[facility] LABORATORY Specimen Anatomical Collection Method Collection Time Receive d Time (Source) Location / / Volume Laterality Blood specimen 08/13/2017 5:33 AM 018 6:04 (specimen) EST AM EST Resulting Agency Comment Spec In Lab Yonathan Smith MD HEMATOLOGY ORDERABLES Performing Organization Address City/State/[place] [address] (ABNORMAL) Prothrombin Time (08/13/2017 5:33 AM EST) P athologist Signature PT 17.3 (H) 11.8 - 14.0 [facility] LABORATORY INR 1.4 (H) 0.9 - 1.1 [facility] [...] Address City/State/[place] [address] (ABNORMAL) Basic Metabolic Panel (non-fasting) (08/13/2017 5:33 AM EST) athologist Signature Glucose Lvl 126 65 - 199 [facility] mg/dL [facility] LAB[facility]AT[facility] Comment: Diabetes: >=200 [...] mmol/L [facility] LAB[facility]ORY CO2 29 22 - 31 mmol/L [facility] LAB[facility]ORY Anion Gap 12 5 - 15 mmol/L [facility] LABORATORY Calcium 7.9 (L) 8.5 - 10.5 mg/dL [facility] LABORATORY Estimated GFR >60 >=60 [facility] LABORATORY Comment: The reported eGFR should be multiplied b y 1.2 for patients. The MDRD is not an appropriate measure o f renal function for patients with body mass extremes or in patients with acute kidney failure. [email or web address] [email or web address] Study [email or web address] Specimen Anatomical Collection Method Collection Time Receive d Time (Source) Location / / Volume Laterality Blood specimen 08/13/2017 5:33 AM 018 6:04 (specimen) EST AM EST Resulting Agency Comment Spec In Lab Yonathan Smith MD CHEMISTRY ORDERABLES Performing Organization Address City/[facility]/ZIP Code Phon e Number [address] POCT Glucose (08/13/2017 4:29 AM EST) athologist Signature POC Glucose 111 65 - 199 [place] mg/dL [facility] Comment: Supplemental [...] City/[facility]/[place] [address] POCT Glucose (08/12/2017 11:28 PM EST) athologist Signature POC Glucose 164 65 - 199 [place] mg/dL [facility] Comment: Supplemental [...] City/[facility]/[place] [address] (ABNORMAL) POCT Glucose (08/12/2017 7:40 PM EST) athologist Signature POC Glucose 209 (H) 65 - 199 [place] mg/dL [facility] Comment: Supplemental [...] City/[facility]/ZIP Code Phon e Number [address] POCT Glucose (08/12/2017 4:24 PM EST) athologist Signature POC Glucose 161 65 - 199 [facility] mg/dL [facility] Comment: Supplemental ranges: [...] City/[facility]/ZIP Code Phon e Number [address] POCT Glucose (08/12/2017 12:00 PM EST) athologist Signature POC Glucose 167 65 - 199 [place] mg/dL [facility] Comment: Supplemental [...] City/[facility]/ZIP Code Phon e Number [address] POCT Glucose (08/12/2017 7:25 AM EST) athologist Signature POC Glucose 152 65 - 199 [place] mg/dL [facility] Comment: Supplemental ranges: <140 mg/dL before meals <180 mg/dL all other times of the day Specimen Anatomical Collection Method Collection Time Receive d Time (Source) Location / / Volume Laterality Blood specimen 08/12/2017 7:25 AM 018 7:25 (specimen) EST AM EST Yonathan Smith MD POINT OF CARE TEST ORDERABLE S Performing Organization Address City/State/[place] [address] (ABNORMAL) Differential, Automated (08/12/2017 6:29 AM EST) [facility] Method Time Signature Neutrophils % 78.7 % [facility] LABORATORY Neutr Abs (ANC) 7.94 (H) 1.70 - [facility] 6.10 [facility] x10(3)/[facility] LABORATORY Lymphocytes % 8.8 % [facility] LABOR[facility]ORY Lymphocytes Abs 0.9 0.9 - 3.2 [facility] x10(3)/[facility] LABORATORY Monocytes % 7.8 % [facility] LAB[facility]ORY Monocyte Abs 0.8 0.3 - 0.9 [facility] x10(3)/[facility] LABORATORY Eosinophils % 3.9 % [facility] LAB[facility]ORY Eosinophils Abs 0.4 0.0 - 0.4 [facility] x10(3)/[facility] LABORATORY Basophils % 0.3 % [facility] LAB[facility]ATORY Basophils Abs 0.0 0.0 - 0.1 [facility] x10(3)/[facility] LABORATORY Immature Gran % 0.50 % [place] [...] Gran Abs 0.05 (H) 0.00 - 0.04 x10(3)/[facility] LABORATORY Specimen Anatomical Collection Method Collection Time Receive d Time (Source) Location / / Volume Laterality Blood specimen 08/12/2017 6:29 AM 018 6:38 (specimen) EST AM EST Resulting Agency Comment Spec In Lab Yonathan Smith MD HEMATOLOGY ORDERABLES Performing Organization Address City/[facility]/[place] [address] (ABNORMAL) Hemogram (08/12/2017 6:29 AM EST) Analysis Performed At Patho logist Time Signature WBC 10.1 (H) 4.0 - 9.5 [facility] x10(3)/[facility] LABORATORY RBC 3.02 (L) 4.58 - [facility] 5.54 [facility] x10(6)/[facility] LABORATORY Hemoglobin 8.7 (L) 13.7 - [facility] 16.5 gm/dL [facility] Hematocrit 28.1 (L) 40.5 - [facility] 48.5 % [facility] MCV 93.0 82.9 - [facility] 93.1 [facility] LABORATORY MCH 28.8 27.5 - [facility] 32.1 pg [facility] MCHC 31.0 (L) 32.0 - [facility] 35.7 gm/dL [facility] Platelets 223 145 - 357 [facility] x10(3)/[facility] LABORATORY RDWSD 56.1 (H) 36.0 - [facility] 45.0 [facility] LABORATORY RDWCV 16.4 (H) 11.4 - [facility] 13.8 % [facility] MPV 9.0 7.6 - 12.9 [facility] LABORATORY nRBC % Auto 0.0 % [facility] LABORATORY nRBC Abs Auto 0.000 0.000 - [facility] 0.000 [facility] x10(3)/[facility] LABORATORY Specimen Anatomical Collection Method Collection Time Receive d Time (Source) Location / / Volume Laterality Blood specimen 08/12/2017 6:29 AM 018 6:38 (specimen) EST AM EST Resulting Agency Comment Spec In Lab Yonathan Smith MD HEMATOLOGY ORDERABLES Performing Organization Address City/State/[place] [address] (ABNORMAL) Prothrombin Time (08/12/2017 6:29 AM EST) P athologist Signature PT 16.1 (H) 11.8 - 14.0 [facility] LABORATORY INR 1.3 (H) 0.9 - 1.1 [facility] [...] City/State/ZIP Code Phon e Number [place] [id number]OS[address] (ABNORMAL) Basic Metabolic Panel (non-fasting) (08/12/2017 6:29 AM EST) athologist Signature Glucose Lvl 151 65 - 199 [facility] mg/dL [facility] Comment: Diabetes: >=200 [...] estions. Chloride 99 98 - 107 mmol/L [facility] LAB[facility]ORY CO2 28 22 - 31 mmol/L [facility] LAB[facility]ORY Anion Gap 11 5 - 15 mmol/L [facility] LABORATORY Calcium 7.9 (L) 8.5 - 10.5 mg/dL [facility] LABORATORY Estimated GFR >60 >=60 [facility] LABORATORY Comment: The reported eGFR should be multiplied b y 1.2 for patients. The MDRD is not an appropriate measure o f renal function for patients with body mass extremes or in patients with acute kidney failure. [email or web address] Study [email or web address] [email or web address] Study [email or web address] Specimen Anatomical Collection Method Collection Time Receive d Time (Source) Location / / Volume Laterality Blood specimen 08/12/2017 6:29 AM 018 6:38 (specimen) EST AM EST Resulting Agency Comment Spec In Lab Yonathan Smith MD CHEMISTRY ORDERABLES Performing Organization Address City/[facility]/ZIP [facility] Phon e Number [address] POCT Glucose (08/12/2017 4:08 AM EST) athologist Signature POC Glucose 181 65 - 199 [facility] Comment: Supplemental ranges: [...] City/[facility]/[place] [address] (ABNORMAL) POCT Glucose (08/12/2017 12:17 AM EST) athologist Signature POC Glucose 221 (H) 65 - 199 [facility] Comment: Supplemental ranges: [...] City/[facility]/[place] [address] (ABNORMAL) POCT Glucose (08/11/2017 8:52 PM EST) athologist Signature POC Glucose 221 (H) 65 - 199 [facility] mg/dL [facility] Comment: Supplemental ranges: <140 mg/dL before meals <180 mg/dL all other times of the day Specimen Anatomical Collection Method Collection Time Receive d Time (Source) Location / / Volume Laterality Blood specimen 08/11/2017 8:52 PM 018 8:52 (specimen) EST PM EST Yonathan Smith MD POINT OF CARE TEST ORDERABLE S Performing Organization Address City/State/[place] [address] POCT Glucose (08/11/2017 5:59 PM EST) athologist Signature POC Glucose 169 65 - 199 [facility]/dL [facility] Comment: Supplemental ranges: [...] City/[facility]/[place] [address] (ABNORMAL) POCT Glucose (08/11/2017 4:08 PM EST) athologist Signature POC Glucose 240 (H) 65 - 199 [facility] mg/dL [facility] Comment: Supplemental ranges: <140 mg/dL before meals <180 mg/dL all other times of the day Specimen Anatomical Collection Method Collection Time Receive d Time (Source) Location / / Volume Laterality Blood specimen 08/11/2017 4:08 PM 018 4:08 (specimen) EST PM EST Yonathan Smith MD POINT OF CARE TEST ORDERABLE S Performing Organization Address City/State/[place] [address] POCT Glucose (08/11/2017 12:04 PM EST) athologist Signature POC Glucose 182 65 - 199 [facility] mg/dL [facility] Comment: Supplemental ranges: <140 mg/dL before meals <180 mg/dL all other times of the day Specimen Anatomical Collection Method Collection Time Receive d Time (Source) Location / / Volume Laterality Blood specimen 08/11/2017 12:04 8 (specimen) PM EST 12:04 PM EST Yonathan Smith MD POINT OF CARE TEST ORDERABLE S Performing Organization Address City/State/ZIP Code Phon e Number [address] POCT Glucose (08/11/2017 7:31 AM EST) athologist [facility] POC Glucose 156 65 - 199 [facility]/dL [facility] Comment: Supplemental ranges: <140 mg/dL before meals <180 mg/dL all other times of the day Specimen Anatomical Collection Method Collection Time Receive d Time (Source) Location / / Volume Laterality Blood specimen 08/11/2017 7:31 AM 018 7:31 (specimen) EST AM EST Yonathan Smith MD POINT OF CARE TEST ORDERABLE S Performing Organization Address City/State/ZIP Code Phon e Number [address] (ABNORMAL) Differential, Automated (08/11/2017 6:16 AM EST) [facility] gist Method Time Signature Neutrophils % 83.7 % [facility] LABORATORY Neutr Abs (ANC) 10.76 (H) 1.70 - [facility] 6.10 [facility] x10(3)/[facility] L LABORATORY Lymphocytes % 6.0 % [facility] LABORATORY Lymphocytes Abs 0.8 (L) 0.9 - 3.2 [facility] x10(3)/[facility] LABORATORY Monocytes % 7.5 % [facility] LABORATORY Monocyte Abs 1.0 (H) 0.3 - 0.9 [facility] x10(3)/[facility] LABORATORY Eosinophils % 2.0 % [facility] LABORATORY Eosinophils Abs 0.3 0.0 - 0.4 [facility] x10(3)/[facility] LABORATORY Basophils % 0.3 % [facility] LABORATORY Basophils Abs 0.0 0.0 - 0.1 [facility] x10(3)/[facility] LABORATORY Immature Gran % 0.50 % [place] [...] Gran Abs 0.06 (H) 0.00 - 0.04 x10(3)/[facility] LABORATORY Specimen Anatomical Collection Method Collection Time Receive d Time (Source) Location / / Volume Laterality Blood specimen 08/11/2017 6:16 AM 018 6:24 (specimen) EST AM EST Resulting Agency Comment Spec In Lab Yonathan Smith MD HEMATOLOGY ORDERABLES Performing Organization Address City/State/[place] [address] (ABNORMAL) Hemogram (08/11/2017 6:16 AM EST) Analysis Performed At Patho logist Time Signature WBC 12.9 (H) 4.0 - 9.5 [facility] x10(3)/[facility] LABORATORY RBC 3.28 (L) 4.58 - [facility] 5.54 [facility] x10(6)/[facility] LABORATORY Hemoglobin 9.5 (L) 13.7 - [facility] 16.5 gm/dL [facility] Hematocrit 29.8 (L) 40.5 - [facility] 48.5 % [facility] MCV 90.9 82.9 - [facility] 93.1 fL [facility] MCH 29.0 27.5 - [facility] 32.1 pg [facility] MCHC 31.9 (L) 32.0 - [facility] 35.7 gm/dL [facility] Platelets 236 145 - 357 [facility] x10(3)/[facility] LABORATORY RDWSD 53.5 (H) 36.0 - [facility] 45.0 [facility] LABORATORY RDWCV 16.3 (H) 11.4 - [facility] 13.8 % [facility] MPV 8.8 7.6 - 12.9 [facility] LABORATORY nRBC % Auto 0.0 % [facility] LABORATORY nRBC Abs Auto 0.000 0.000 - [facility] 0.000 [facility] x10(3)/[facility] LABORATORY Specimen Anatomical Collection Method Collection Time Receive d Time (Source) Location / / Volume Laterality Blood specimen 08/11/2017 6:16 AM 018 6:24 (specimen) EST AM EST Resulting Agency Comment Spec In Lab Yonathan Smith MD HEMATOLOGY ORDERABLES Performing Organization Address City/[facility] [place] [address] (ABNORMAL) Prothrombin Time (08/11/2017 6:16 AM EST) P athologist Signature PT 15.5 (H) 11.8 - 14.0 [facility] LABORATORY INR 1.3 (H) 0.9 - 1.1 [facility] [...] ORDERABLES Performing Organization Address City/[facility]/ZIP [facility] [place] [address] Basic Metabolic Panel (non-fasting) (08/11/2017 6:16 AM EST) P athologist Signature Glucose Lvl 139 65 - 199 [facility] mg/dL [facility] Comment: Diabetes: >=200 [...] estions. Chloride 98 98 - 107 mmol/L [facility] LABOR[facility]ORY CO2 27 22 - 31 mmol/L [facility] LABORATORY Anion Gap 13 5 - 15 mmol/L [facility] LABORATORY Calcium 8.5 8.5 - 10.5 mg/dL [facility] LABORATORY Estimated GFR >60 >=60 [facility] LABORATORY Comment: The reported eGFR should be multiplied b y 1.2 for patients. The MDRD is not an appropriate measure o f renal function for patients with body mass extremes or in patients with acute kidney failure. [email or web address] [email or web address] [email or web address] Study [email or web address] Specimen Anatomical Collection Method Collection Time Receive d Time (Source) Location / / Volume Laterality Blood specimen 08/11/2017 6:16 AM 018 6:24 (specimen) EST AM EST Resulting Agency Comment Spec In Lab Yonathan Smith MD CHEMISTRY ORDERABLES Performing Organization Address City/State/[place] [address] POCT Glucose (08/11/2017 4:07 AM EST) athologist Signature POC Glucose 162 65 - 199 [facility] mg/dL [facility] Comment: Supplemental ranges: [...] City/[facility]/[place] [address] POCT Glucose (08/10/2017 11:59 PM EST) athologist Signature POC Glucose 166 65 - 199 [facility] mg/dL [facility] Comment: Supplemental [...] Address City/State/ZIP Code Phon e Number [address] POCT Glucose (08/10/2017 8:12 PM EST) athologist Signature POC Glucose 156 65 - 199 [facility] mg/dL [facility] Comment: Supplemental ranges: <140 mg/dL before meals <180 mg/dL all other times of the day Specimen Anatomical Collection Method Collection Time Receive d Time (Source) Location / / Volume Laterality Blood specimen 08/10/2017 8:12 PM 018 8:12 (specimen) EST PM EST Yonathan Smith MD POINT OF CARE TEST ORDERABLE S Performing Organization Address City/State/[place] [address] (ABNORMAL) POCT Glucose (08/10/2017 4:42 PM EST) athologist Signature POC Glucose 211 (H) 65 - 199 [facility] mg/dL [facility] Comment: Supplemental [...] City/State/ZIP Code Phon e Number [place] [id number]OS[address] (ABNORMAL) Differential, Automated (08/10/2017 2:30 PM EST) [facility] Method Time Signature Neutrophils % 87.6 % [facility] LABORATORY Neutr Abs (ANC) 9.90 (H) 1.70 - [facility] 6.10 [facility] x10(3)/[facility] L LABORATORY Lymphocytes % 4.3 % [facility] LABORATORY Lymphocytes Abs 0.5 (L) 0.9 - 3.2 [facility] x10(3)/[facility] LABORATORY Monocytes % 6.0 % [facility] LABORATORY Monocyte Abs 0.7 0.3 - 0.9 [facility] x10(3)/[facility] LABORATORY Eosinophils % 1.1 % [facility] LABORATORY Eosinophils Abs 0.1 0.0 - 0.4 [facility] x10(3)/[facility] LABORATORY Basophils % 0.4 % [facility] LABORATORY Basophils Abs 0.0 0.0 - 0.1 [facility] x10(3)/[facility] LABORATORY Immature Gran % 0.60 [...] Gran Abs 0.07 (H) 0.00 - 0.04 x10(3)/[facility] LABORATORY Specimen Anatomical Collection Method Collection Time Receive d Time (Source) Location / / Volume Laterality Blood specimen 08/10/2017 2:30 PM 018 2:48 (specimen) EST PM EST Resulting Agency Comment Spec In Lab Yonathan Smith MD HEMATOLOGY ORDERABLES Performing Organization Address City/State/ZIP Code Phon e Number [address] (ABNORMAL) Hemogram (08/10/2017 2:30 PM EST) Analysis Performed At Patho logist Time Signature WBC 11.3 (H) 4.0 - 9.5 [facility](3[facility] LABORATORY RBC 3.13 (L) 4.58 - [facility] 5.54 [facility] x10(6)/[facility] LABORATORY Hemoglobin 8.9 (L) 13.7 - [facility] 16.5 gm/dL [facility] Hematocrit 28.4 (L) 40.5 - [facility] 48.5 % [facility] MCV 90.7 82.9 - [facility] 93.1 [facility] LABORATORY MCH 28.4 27.5 - [facility] 32.1 pg [facility] MCHC 31.3 (L) 32.0 - [facility] 35.7 gm/dL [facility] Platelets 213 145 - 357 [facility] x10(3)/[facility] LABORATORY RDWSD 53.7 (H) 36.0 - [facility] 45.0 [facility] LABORATORY RDWCV 16.4 (H) 11.4 - [facility] 13.8 % [facility] MPV 8.9 7.6 - 12.9 [facility] LABORATORY nRBC % Auto 0.0 % [facility] LABORATORY nRBC Abs Auto 0.000 0.000 - [facility] 0.000 [facility] x10(3)/[facility] LABORATORY Specimen Anatomical Collection Method Collection Time Receive d Time (Source) Location / / Volume Laterality Blood specimen 08/10/2017 2:30 PM 018 2:48 (specimen) EST PM EST Resulting Agency Comment Spec In Lab Yonathan Smith MD HEMATOLOGY ORDERABLES Performing Organization Address City/State/[place] [address] (ABNORMAL) POCT Glucose (08/10/2017 1:50 PM EST) athologist Signature POC Glucose 243 (H) 65 - 199 [facility] mg/dL [facility] Comment: Supplemental ranges: <140 mg/dL before meals <180 mg/dL all other times of the day Specimen Anatomical Collection Method Collection Time Receive d Time (Source) Location / / Volume Laterality Blood specimen 08/10/2017 1:50 PM 018 1:50 (specimen) EST PM EST Yonathan Smith MD POINT OF CARE TEST ORDERABLE S Performing Organization Address City/State/ZIP Code Phon e Number [address] POCT Glucose (08/10/2017 11:21 AM EST) athologist Signature POC Glucose 156 65 - 199 [facility] Comment: Supplemental ranges: <140 mg/dL before meals <180 mg/dL all other times of the day Specimen Anatomical Collection Method Collection Time Receive d Time (Source) Location / / Volume Laterality Blood specimen 08/10/2017 11:21 8 (specimen) AM EST 11:21 AM EST Yonathan Smith MD POINT OF CARE TEST ORDERABLE S Performing Organization Address City/State/ZIP Code Phon e Number [address] (ABNORMAL) Differential, Automated (08/10/2017 10:28 AM EST) [facility] gist Method Time Signature Neutrophils % 85.3 % [facility] LABORATORY Neutr Abs (ANC) 9.43 (H) 1.70 - [facility] 6.10 [facility] x10(3)/[facility] L LABORATORY Lymphocytes % 5.5 % [facility] LABORATORY Lymphocytes Abs 0.6 (L) 0.9 - 3.2 [facility] x10(3)/[facility] LABORATORY Monocytes % 5.9 % [facility] LABORATORY Monocyte Abs 0.6 0.3 - 0.9 [facility] x10(3)/[facility] LABORATORY Eosinophils % 2.1 % [facility] LABORATORY Eosinophils Abs 0.2 0.0 - 0.4 [facility] x10(3)/[facility] LABORATORY Basophils % 0.4 % [facility] LABORATORY Basophils Abs 0.0 0.0 - 0.1 [facility] x10(3)/[facility] LABORATORY Immature Gran % 0.80 % [facility] LABORATORY Comment: Immature granulocytes(IG's)percentage an d absolute count will include metamyelocytes, myelocytes, and promyelo cytes. Blood smears from CBCs yielding IG's will be scanned manually for concor dance. If this scan disagrees with the automated IG or if promyelocytes are not ed, a manual differential will be performed. Melisa Gran Abs 0.09 (H) 0.00 - 0.04 x10(3)/[facility] LABORATORY Specimen Anatomical Collection Method Collection Time Receive d Time (Source) Location / / Volume Laterality Blood specimen 08/10/2017 10:28 8 (specimen) AM EST 10:35 AM EST Resulting Agency Comment Spec In Lab Yonathan Smith MD HEMATOLOGY ORDERABLES Performing Organization Address City/State/[place] [address] (ABNORMAL) Hemogram (08/10/2017 10:28 AM EST) Analysis Performed At Patho logist Time Signature WBC 11.0 (H) 4.0 - 9.5 [facility] x10(3)/[facility] LABORATORY RBC 3.02 (L) 4.58 - [facility] 5.54 [facility] x10(6)/[facility] LABORATORY Hemoglobin 8.8 (L) 13.7 - [facility] 16.5 gm/dL [facility] Hematocrit 28.1 (L) 40.5 - [facility] 48.5 % [facility] MCV 93.0 82.9 - [facility] 93.1 fL [facility] MCH 29.1 27.5 - [facility] 32.1 pg [facility] MCHC 31.3 (L) 32.0 - [facility] 35.7 gm/dL [facility] Platelets 207 145 - 357 [facility] x10(3)/[facility] LABORATORY RDWSD 55.3 (H) 36.0 - BARBARA DAVIS 45.0 [facility] LABORATORY RDWCV 16.4 (H) 11.4 - [place] DAVIS 13.8 % [facility] MPV 9.0 7.6 - 12.9 [place] DAVIS [facility] LABORATORY nRBC % Auto 0.0 % [facility] nRBC Abs Auto 0.000 0.000 - [place] DAVIS 0.000 [facility] x10(3)/[facility] LABORATORY Specimen Anatomical Collection Method Collection Time Receive d Time (Source) Location / / Volume Laterality Blood specimen 08/10/2017 10:28 8 (specimen) AM EST 10:35 AM EST Resulting Agency Comment Spec In Lab Yonathan Smith MD HEMATOLOGY ORDERABLES Performing Organization Address City/State/[place] [address] VS Angiogram/intervention (vascular) (08/10/2017 [...] 2.5x80 5. Completion RLE angiogram 6. L [employer] angiogram 7. 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 - L [employer] angriogram demonstrated: High fe moral bifurcation over the proximal half of the femoral head. L [employer] access in the distal L [employer]. - Closure device: Mynx Technical Procedure: ?The [...] for a 45cm 5F Destination. V18 and Donora a nd QuickCross catheters were used to [...] bifurcation. Access appeared in the distal R [employer]. Closure and sheath removal was performed with [...] 2.5x80 5. Completion RLE angiogram 6. L [employer] angiogram 7. 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 - L [employer] angriogram demonstrated: High fe moral bifurcation over the proximal half of the femoral head. L [employer] access in the distal L [employer]. - Closure device: Mynx Technical Procedure: The [...] for a 45cm 5F Destination. V18 and Donora a nd QuickCross catheters were used to [...] bifurcation. Access appeared in the distal R [employer]. Closure and sheath removal was performed with [...] (ABNORMAL) Differential, Automated (08/10/2017 5:50 AM EST) [facility] Method Time Signature Neutrophils % 80.1 % [facility] LABORATORY Neutr Abs (ANC) 9.01 (H) 1.70 - [facility] 6.10 [facility] x10(3)/[facility] LABORATORY Lymphocytes % 8.8 % [facility] LABORATORY Lymphocytes Abs 1.0 0.9 - 3.2 [facility] x10(3)/[facility] LABORATORY Monocytes % 8.3 % [facility] LABORATORY Monocyte Abs 0.9 0.3 - 0.9 [facility] x10(3)/[facility] LABORATORY Eosinophils % 2.0 % [facility] LABORATORY Eosinophils Abs 0.2 0.0 - 0.4 [facility] x10(3)/[facility] LABORATORY Basophils % 0.4 % [facility] LABORATORY Basophils Abs 0.0 0.0 - 0.1 [facility] x10(3)/[facility] LABORATORY Immature Gran % 0.40 % [place] [...] Gran Abs 0.05 (H) 0.00 - 0.04 x10(3)/[facility] LABORATORY Specimen Anatomical Collection Method Collection Time Receive d Time (Source) Location / / Volume Laterality Blood specimen 08/10/2017 5:50 AM 018 5:59 (specimen) EST AM EST Resulting Agency Comment Spec In Lab Yonathan Smith MD HEMATOLOGY ORDERABLES Performing Organization Address City/State/Z[place] [address] (ABNORMAL) Hemogram (08/10/2017 5:50 AM EST) Analysis Performed At Patho logist Time Signature WBC 11.3 (H) 4.0 - 9.5 [facility] x10(3)/[facility] LABORATORY RBC 3.15 (L) 4.58 - [facility] 5.54 [facility] x10(6)/[facility] LABORATORY Hemoglobin 8.9 (L) 13.7 - [facility] 16.5 gm/dL [facility] Hematocrit 29.0 (L) 40.5 - [facility] 48.5 % [facility] MCV 92.1 82.9 - [facility] 93.1 [facility] LABORATORY MCH 28.3 27.5 - [facility] 32.1 pg [facility] MCHC 30.7 (L) 32.0 - [facility] 35.7 gm/dL [facility] Platelets 231 145 - 357 [facility] x10(3)/[facility] LABORATORY RDWSD 53.9 (H) 36.0 - [facility] 45.0 [facility] LABORATORY RDWCV 16.2 (H) 11.4 - [facility] 13.8 % [facility] LAB[facility] MPV 8.7 7.6 - 12.9 [facility] LABORATORY nRBC % Auto 0.0 % [facility] LABORATORY nRBC Abs Auto 0.000 0.000 - [place] RYAN 0.000 [facility] x10(3)/[facility] LABORATORY Specimen Anatomical Collection Method Collection Time Receive d Time (Source) Location / / Volume Laterality Blood specimen 08/10/2017 5:50 AM 018 5:59 (specimen) EST AM EST Resulting Agency Comment Spec In Lab Yonathan Smith MD HEMATOLOGY ORDERABLES Performing Organization Address City/State/ZIP [place] [address] (ABNORMAL) Basic Metabolic Panel (non-fasting) (08/10/2017 5:50 AM EST) P athologist Signature Glucose Lvl 135 65 - 199 [facility] mg/dL [facility] Comment: Diabetes: >=200 [...] [facility] LABORATORY Estimated GFR >60 >=60 [facility] LABORATORY Comment: The reported eGFR should be multiplied b y 1.2 for patients. The MDRD is not an appropriate measure o f renal function for patients with body mass extremes or in patients with acute kidney failure. [email or web address] [email or web address]/DHnkdep [email or web address] Being [email or web address]/DHMCnkf Specimen Anatomical Collection Method Collection Time Receive d Time (Source) Location / / Volume Laterality Blood specimen 08/10/2017 5:50 AM 018 5:59 (specimen) EST AM EST Resulting Agency Comment Spec In Lab Yonathan Smith MD CHEMISTRY ORDERABLES Performing Organization Address City/State/[place] [address] (ABNORMAL) Prothrombin Time (08/10/2017 5:50 AM EST) athologist Signature PT 16.8 (H) 11.8 - 14.0 [facility] LABORATORY INR 1.4 (H) 0.9 - 1.1 [facility] [...] City/[facility]/[place] [address] (ABNORMAL) POCT Glucose (08/10/2017 4:01 AM EST) athologist Signature POC Glucose 206 (H) 65 - 199 [facility] mg/dL [facility] Comment: Supplemental ranges: <140 mg/dL before meals <180 mg/dL all other times of the day Specimen Anatomical Collection Method Collection Time Receive d Time (Source) Location / / Volume Laterality Blood specimen 08/10/2017 4:01 AM 018 4:01 (specimen) EST AM EST Yonathan Smith MD POINT OF CARE TEST ORDERABLE S Performing Organization Address City/State/[place] [address] POCT Glucose (08/10/2017 2:01 AM EST) athologist Signature POC Glucose 188 65 - 199 [facility] mg/dL [facility] Comment: Supplemental ranges: <140 mg/dL before meals <180 mg/dL all other times of the day Specimen Anatomical Collection Method Collection Time Receive d Time (Source) Location / / Volume Laterality Blood specimen 08/10/2017 2:01 AM 018 2:01 (specimen) EST AM EST Yonathan Smith MD POINT OF CARE TEST ORDERABLE S Performing Organization Address City/State/[place] [address] (ABNORMAL) POCT Glucose (08/09/2017 11:42 PM EST) P athologist Signature POC Glucose 283 (H) 65 - 199 [facility] mg/dL [facility] Comment: Supplemental ranges: [...] City/[facility]/[place] [address] POCT Glucose (08/09/2017 8:55 PM EST) P athologist Signature POC Glucose 182 65 - 199 [facility] mg/dL [facility] Comment: Supplemental ranges: <140 mg/dL before meals <180 mg/dL all other times of the day Specimen Anatomical Collection Method Collection Time Receive d Time (Source) Location / / Volume Laterality Blood specimen 08/09/2017 8:55 PM 018 8:55 (specimen) EST PM EST Yonathan Smith MD POINT OF CARE TEST ORDERABLE S Performing Organization Address City/State/[place] [address] (ABNORMAL) APTT (08/09/2017 6:42 PM EST) P athologist Signature PTT 90 (H) 25 - 35 sec [facility] LABORATORY Comment: The recommended therapeutic range for fu ll dose, unfractionated heparin at [facility] is 80 ? 114 seconds. The use [...] City/[facility]/ZIP Code Phon e Number [address] POCT Glucose (08/09/2017 4:41 PM EST) athologist Signature POC Glucose 195 65 - 199 [facility] mg/dL [facility] Comment: Supplemental ranges: [...] City/[facility]/ZIP Code Phon e Number [address] POCT Glucose (08/09/2017 12:29 PM EST) athologist Signature POC Glucose 140 65 - 199 [facility] mg/dL [facility] Comment: Supplemental ranges: <140 mg/dL before meals <180 mg/dL all other times of the day Specimen Anatomical Collection Method Collection Time Receive d Time (Source) Location / / Volume Laterality Blood specimen 08/09/2017 12:29 8 (specimen) PM EST 12:29 PM EST Yonathan Smith MD POINT OF CARE TEST ORDERABLE S Performing Organization Address City/[facility]/ZIP [facility] Phon e Number [address] POCT Glucose (08/09/2017 9:59 AM EST) athologist Signature POC Glucose 135 65 - 199 [facility] mg/dL [facility] Comment: Supplemental ranges: [...] City/[facility]/[place] [address] Specimen to Pathology (08/09/2017 8:41 AM EST) Specimen Anatomical Collection Method Collection Time Receive d Time (Source) Location / / Volume Laterality AP Specimen 08/09/2017 8:41 AM 8 8:41 EST AM EST Narrative [facility] LABORAT ORY - 08/09/2017 8:41 AM EST Specimen requisition ordered. ??Separate Pathology report to follow Yonathan Smith MD PATHOLOGY/CYTOLOGY ORDERABLE S Performing Organization Address City/[facility]/[place] [address] Surgical Pathology Report (08/09/2017 8:40 AM EST) Component Value Ref Test Analysis Performed At [facility] gist Range Method Time Signature Surgical [id number] ? Location: [facility]; [facility]; A [facility] Report The signing pathologist has (i) examined the relevant preparation(s) for the [facility] specimen(s) and (ii) rendered or confirmed the diagnosis(es) . HOSPITAL LABORATORY . 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 ?Viable proximal resection margins. Electronically signed by: ??Manjit STRANGE, Henrique Flower Verified: ??08/13/2017 ?Pathologist Performed at: ??-[facility] Dept. of Pathology, [place], [place] CLINICAL INFORMATION Specimen Submitted: A - [...] Address City/State/ZIP [place] [address] Anaerobic Culture (08/09/2017 8:30 AM EST) [facility] gist Method Time Signature Anaerobic No anaerobic [facility] Culture organisms [facility] LABORATORY Specimen Anatomical Collection Method Collection [...] Organization Address City/State/[place] [address] (ABNORMAL) Abscess/Wound Aspirate Culture (08/09/2017 8:30 AM EST) Patholo gist Method Time Signature Abscess/Wound Moderate mixed [facility] Aspirate bacterial [place] Culture morphotypes [facility] normal LABORATORY cutaneous leroy (A) Gram Stain Rare White Blood Cells [place] Few Gram Positive Cocci in pairs [place] () [facility] Organism Gram Positive [place] Cocci in pairs [place] () [facility] Specimen Anatomical Collection Method [...] GENERAL ORDER ROBSON Performing Organization Address City/[facility]/[place] [address] POCT Glucose (08/09/2017 4:28 AM EST) P athologist Signature POC Glucose 128 65 - 199 [facility] mg/dL [facility] Comment: Supplemental ranges: <140 mg/dL before meals <180 mg/dL all other times of the day Specimen Anatomical Collection Method Collection Time Receive d Time (Source) Location / / Volume Laterality Blood specimen 08/09/2017 4:28 AM 018 4:28 (specimen) EST AM EST Yonathan Smith MD POINT OF CARE TEST ORDERABLE S Performing Organization Address City/State/ZIP Code Phon e Number [address] ABORH Recheck Status [...] City/[facility]/[place] [address] Antibody screen (08/09/2017 1:10 AM EST) Patholo gist Method Time Signature Ab Screen Negative [facility] LABORATORY Expires at 08/12/2017 BARBARA ZHAORYAN [id number] on: [facility] LABOR[facility]ORY Specimen Anatomical Collection Method Collection Time Receive d Time (Source) Location / / Volume Laterality Blood specimen 08/09/2017 1:10 AM 018 1:35 (specimen) EST AM EST Resulting Agency Comment Spec In Lab Yonathan Smith MD BLOOD BANK ORDERABLES Performing Organization Address City/[facility]/[place] [address] ABO/Rh Typing (08/09/2017 1:10 AM EST) P athologist Signature ABORh Type O Pos [facility] LABORATORY Specimen Anatomical Collection Method Collection Time Receive d Time (Source) Location / / Volume Laterality Blood specimen 08/09/2017 1:10 AM 018 1:35 (specimen) EST AM EST Resulting Agency Comment Spec In Lab Yonathan Smith MD BLOOD BANK ORDERABLES Performing Organization Address City/[facility]/[place] [address] (ABNORMAL) APTT (08/09/2017 1:10 AM EST) P athologist Signature PTT 86 (H) 25 - 35 sec [facility] LABORATORY Comment: The recommended therapeutic range for fu ll dose, unfractionated heparin at [facility] is 80 ? 114 seconds. The use [...] Address City/State/Z[place] [address] (ABNORMAL) Differential, Automated (08/09/2017 1:10 AM EST) [facility] Method Time Signature Neutrophils % 76.2 % [facility] LABORATORY Neutr Abs (ANC) 8.59 (H) 1.70 - [facility] 6.10 [facility] x10(3)/[facility] LABORATORY Lymphocytes % 11.0 % [facility] LABORATORY Lymphocytes Abs 1.2 0.9 - 3.2 [facility] x10(3)/[facility] LABORATORY Monocytes % 8.4 % [facility] LABORATORY Monocyte Abs 1.0 (H) 0.3 - 0.9 [facility] x10(3)/[facility] LABORATORY Eosinophils % 3.5 % [facility] LABORATORY Eosinophils Abs 0.4 0.0 - 0.4 [facility] x10(3)/[facility] LABORATORY Basophils % 0.5 % [facility] LABORATORY Basophils Abs 0.1 0.0 - 0.1 [facility] x10(3)/[facility] LABORATORY Immature Gran % 0.40 % [place] [...] Gran Abs 0.05 (H) 0.00 - 0.04 x10(3)/[facility] LABORATORY Specimen Anatomical Collection Method Collection Time Receive d Time (Source) Location / / Volume Laterality Blood specimen 08/09/2017 1:10 AM 018 1:19 (specimen) EST AM EST Resulting Agency Comment Spec In Lab Yonathan Smith MD HEMATOLOGY ORDERABLES Performing Organization Address City/State/[place] [address] (ABNORMAL) Hemogram (08/09/2017 1:10 AM EST) Analysis Performed At Patho logist Time Signature WBC 11.3 (H) 4.0 - 9.5 [facility] x[facility](3[facility] LABORATORY RBC 3.47 (L) 4.58 - [place] RYAN 5.54 [facility] x10(6)/[facility] LABORATORY Hemoglobin 10.0 (L) 13.7 - [facility] 16.5 gm/dL [facility] Hematocrit 31.9 (L) 40.5 - [facility] 48.5 % [facility] MCV 91.9 82.9 - [facility] 93.1 [facility] LABORATORY MCH 28.8 27.5 - [facility] 32.1 pg [facility] MCHC 31.3 (L) 32.0 - [facility] 35.7 gm/dL [facility] Platelets 234 145 - 357 [facility] x10(3)/[facility] LABORATORY RDWSD 54.0 (H) 36.0 - [facility] 45.0 [facility] LABORATORY RDWCV 16.2 (H) 11.4 - [facility] 13.8 % [facility] MPV 8.7 7.6 - 12.9 [facility] LABORATORY nRBC % Auto 0.0 % [facility] LABORATORY nRBC Abs Auto 0.000 0.000 - [facility] 0.000 [facility] x10(3)/[facility] LABORATORY Specimen Anatomical Collection Method Collection Time Receive d Time (Source) Location / / Volume Laterality Blood specimen 08/09/2017 1:10 AM 018 1:19 (specimen) EST AM EST Resulting Agency Comment Spec In Lab Yonathan Smith MD HEMATOLOGY ORDERABLES Performing Organization Address City/State/Z[place] [address] (ABNORMAL) Prothrombin Time (08/09/2017 1:10 AM EST) P athologist Signature PT 16.0 (H) 11.8 - 14.0 [facility] LABORATORY INR 1.3 (H) 0.9 - 1.1 [facility] Organization Address City/State/[place] [address] (ABNORMAL) Basic Metabolic Panel (non-fasting) (08/09/2017 1:10 AM EST) athologist Signature Glucose Lvl 108 65 - 199 [facility] mg/dL [facility] Comment: Diabetes: >=200 [...] Chloride 96 (L) 98 - 107 mmol/L [facility] LABORATORY CO2 29 22 - 31 mmol/L [facility] LABORATORY Anion Gap 13 5 - 15 mmol/L [facility] LABORATORY Calcium 8.3 (L) 8.5 - 10.5 mg/dL [facility] LABORATORY Estimated GFR 45 (L) >=60 [facility] LABORATORY Comment: The reported eGFR should be multiplied b y 1.2 for patients. The MDRD is not an appropriate measure o f renal function for patients with body mass extremes or in patients with acute kidney failure. [email or web address] [employer]ards/DHnkdep [email or web address] Study [employer]/DHMCnkf Specimen Anatomical Collection Method Collection Time Receive d Time (Source) Location / / Volume Laterality Blood specimen 08/09/2017 1:10 AM 018 1:19 (specimen) EST AM EST Resulting Agency Comment Spec In Lab Yonathan Smith MD CHEMISTRY ORDERABLES Performing Organization Address City/[facility]/ZIP [facility] Phon e Number [address] POCT Glucose (08/09/2017 12:05 AM EST) P athologist Signature POC Glucose 128 65 - 199 [facility]/dL [facility] Comment: Supplemental ranges: [...] City/[facility]/[place] [address] (ABNORMAL) POCT Glucose (08/08/2017 7:36 PM EST) P athologist Signature POC Glucose 215 (H) 65 - 199 [facility] mg/dL [facility] Comment: Supplemental ranges: <140 mg/dL before meals <180 mg/dL all other times of the day Specimen Anatomical Collection Method Collection Time Receive d Time (Source) Location / / Volume Laterality Blood specimen 08/08/2017 7:36 PM 018 7:36 (specimen) EST PM EST Yonathan Smith MD POINT OF CARE TEST ORDERABLE S Performing Organization Address City/State/[place] [address] (ABNORMAL) POCT Glucose (08/08/2017 6:23 PM EST) athologist Signature POC Glucose 216 (H) 65 - 199 [facility] mg[facility]dL [facility] Comment: Supplemental ranges: [...] City/[facility]/[place] [address] (ABNORMAL) APTT (08/08/2017 6:00 PM EST) athologist Signature PTT 97 (H) 25 - 35 sec [facility] LABORATORY Comment: The recommended therapeutic range for fu ll dose, unfractionated heparin at [facility] is 80 ? 114 seconds. The use [...] Organization Address City/State/[place] [address] POCT Glucose (08/08/2017 4:42 PM EST) athologist Signature POC Glucose 78 65 - 199 [facility] mg[facility]dL [facility] Comment: Supplemental ranges: <140 mg/dL before meals <180 mg/dL all other times of the day Specimen Anatomical Collection Method Collection Time Receive d Time (Source) Location / / Volume Laterality Blood specimen 08/08/2017 4:42 PM 018 4:42 (specimen) EST PM EST Yonathan Smith MD POINT OF CARE TEST ORDERABLE S Performing Organization Address City/State/[place] [address] (ABNORMAL) POCT Glucose (08/08/2017 4:01 PM EST) P athologist Signature POC Glucose 58 (L) 65 - 199 [facility]dL [facility] Comment: Supplemental ranges: [...] City/[facility]/[place] [address] POCT Glucose (08/08/2017 11:51 AM EST) athologist Signature POC Glucose 90 65 - 199 [facility] mg/dL [facility] Comment: Supplemental ranges: [...] City/[facility]/[place] [address] (ABNORMAL) APTT (08/08/2017 10:27 AM EST) P athologist Signature PTT 64 (H) 25 - 35 sec [facility] Comment: The recommended therapeutic range for fu ll dose, unfractionated heparin at [facility] is 80 ? 114 seconds. The use [...] City/[facility]/[place] [address] POCT Glucose (08/08/2017 8:02 AM EST) athologist Signature POC Glucose 178 65 - 199 [facility]dL [facility] Comment: Supplemental ranges: <140 mg/dL before meals <180 mg/dL all other times of the day Specimen Anatomical Collection Method Collection Time Receive d Time (Source) Location / / Volume Laterality Blood specimen 08/08/2017 8:02 AM 018 8:02 (specimen) EST AM EST Yonathan Smith MD POINT OF CARE TEST ORDERABLE S Performing Organization Address City/[facility] [place] [address] (ABNORMAL) APTT (08/08/2017 4:51 AM EST) athologist Signature PTT >160 25 - 35 [facility] ([facility]) sec [facility] Comment: Called by: HOWARD, Read back by: Melba Jaramillo, Date/Time:08/08/17 05:43. The recommended therapeutic range for fu ll dose, unfractionated heparin at [facility] is 80 ? 114 seconds. The use [...] ORDERABLES Performing Organization Address City/[facility]/ZIP [facility] [place] [address] (ABNORMAL) Differential, Automated (08/08/2017 4:51 AM EST) Patholo gist Method Time Signature Neutrophils % 77.9 % [facility] Neutr Abs (ANC) 8.17 (H) 1.70 - [facility] 6.10 [facility] x10(3)/[facility] LABORATORY Lymphocytes % 10.3 % [facility] Lymphocytes Abs 1.1 0.9 - 3.2 [facility] x10(3)/[facility] LABORATORY Monocytes % 7.0 % [facility] Monocyte Abs 0.7 0.3 - 0.9 [facility] x10(3)/[facility] LABORATORY Eosinophils % 3.6 % [facility] Eosinophils Abs 0.4 0.0 - 0.4 [facility] x10(3)/[facility] LABORATORY Basophils % 0.5 % [facility] Basophils Abs 0.0 0.0 - 0.1 [facility] x10(3)/[facility] LABORATORY Immature Gran % 0.70 % [place] [...] Gran Abs 0.07 (H) 0.00 - 0.04 x10(3)/[facility] LABORATORY Specimen Anatomical Collection Method Collection Time Receive d Time (Source) Location / / Volume Laterality Blood specimen 08/08/2017 4:51 AM 018 5:14 (specimen) EST AM EST Resulting Agency Comment Spec In Lab Yonathan Smith MD HEMATOLOGY ORDERABLES Performing Organization Address City/State/Z[place] [address] (ABNORMAL) Hemogram (08/08/2017 4:51 AM EST) Analysis Performed At Patho logist Time Signature WBC 10.5 (H) 4.0 - 9.5 [facility] x10(3)/[facility] LABORATORY RBC 3.27 (L) 4.58 - [facility] 5.54 [facility] x10(6)/[facility] LABORATORY Hemoglobin 9.3 (L) 13.7 - [facility] 16.5 gm/dL [facility] Hematocrit 30.3 (L) 40.5 - [facility] 48.5 % [facility] MCV 92.7 82.9 - [facility] 93.1 [facility] LABORATORY MCH 28.4 27.5 - [facility] 32.1 pg [facility] MCHC 30.7 (L) 32.0 - [facility] 35.7 gm/dL [facility] Platelets 252 145 - 357 [facility] x10(3)/[facility] LABORATORY RDWSD 54.6 (H) 36.0 - [facility] 45.0 [facility] LABORATORY RDWCV 16.2 (H) 11.4 - [facility] 13.8 % [facility] MPV 9.1 7.6 - 12.9 [facility] LABORATORY nRBC % Auto 0.0 % [facility] LAB[facility]ATORY nRBC Abs Auto 0.000 0.000 - [facility] 0.000 [facility] x10(3)/[facility] LABORATORY Specimen Anatomical Collection Method Collection Time Receive d Time (Source) Location / / Volume Laterality Blood specimen 08/08/2017 4:51 AM 018 5:14 (specimen) EST AM EST Resulting Agency Comment Spec In Lab Yonathan Smith MD HEMATOLOGY ORDERABLES Performing Organization Address City/State/[place] [address] (ABNORMAL) Prothrombin Time (08/08/2017 4:51 AM EST) P athologist Signature PT 18.1 (H) 11.8 - 14.0 [facility] LABORATORY INR 1.5 (H) 0.9 - 1.1 [facility] [...] Address City/State/Z[place] [address] (ABNORMAL) Basic Metabolic Panel (non-fasting) (08/08/2017 4:51 AM EST) P athologist Signature Glucose Lvl 229 (H) 65 - 199 [facility] mg/dL [facility] Comment: Diabetes: >=200 [...] Chloride 94 (L) 98 - 107 mmol/L [facility] [...] or in patients with acute kidney failure. [email or web address] [email or web address] Specimen Anatomical Collection Method Collection Time Receive d Time (Source) Location / / Volume Laterality Blood specimen 08/08/2017 4:51 AM 018 5:14 (specimen) EST AM EST Resulting Agency Comment Spec In Lab Yonathan Smith MD CHEMISTRY ORDERABLES Performing Organization Address City/State/ZIP Code Phon e Number [address] POCT Glucose (08/08/2017 4:20 AM EST) athologist Signature POC Glucose 193 65 - 199 [facility]/dL [facility] Comment: Supplemental ranges: [...] City/[facility]/ZIP Code Phon e Number [address] POCT Glucose (08/07/2017 11:11 PM EST) athologist Signature POC Glucose 124 65 - 199 [facility]/dL [facility] Comment: Supplemental ranges: [...] City/[facility]/ZIP Code Phon e Number [address] (ABNORMAL) APTT (08/07/2017 10:18 PM EST) P athologist Signature PTT 114 (H) 25 - 35 sec [facility] Comment: The recommended therapeutic range for fu ll dose, unfractionated heparin at [facility] is 80 ? 114 seconds. The use [...] HEMATOLOGY ORDERABLES Performing Organization Address City/[facility] Phon e Number [address] POCT Glucose (08/07/2017 8:10 PM EST) athologist Signature POC Glucose 140 65 - 199 [facility] mg/dL [facility] Comment: Supplemental ranges: [...] City/[facility]/ZIP Code Phon e Number [address] POCT Glucose (08/07/2017 5:27 PM EST) athologist Signature POC Glucose 187 65 - 199 [facility] mg/dL [facility] Comment: Supplemental ranges: [...] City/[facility]/ZIP Code Phon e Number [address] POCT Glucose (08/07/2017 3:29 PM EST) athologist Signature POC Glucose 86 65 - 199 [facility]/dL [facility] Comment: Supplemental ranges: [...] City/[facility]/[place] [address] (ABNORMAL) APTT (08/07/2017 2:50 PM EST) athologist Signature PTT 60 (H) 25 - 35 sec [facility] Comment: The recommended therapeutic range for fu ll dose, unfractionated heparin at [facility] is 80 ? 114 seconds. The use [...] City/[facility]/[place] [address] (ABNORMAL) POCT Glucose (08/07/2017 2:23 PM EST) athologist Signature POC Glucose 55 (L) 65 - 199 [facility] mg/dL [facility] Comment: Supplemental ranges: <140 mg/dL before meals <180 mg/dL all other times of the day Specimen Anatomical Collection Method Collection Time Receive d Time (Source) Location / / Volume Laterality Blood specimen 08/07/2017 2:23 PM 018 2:23 (specimen) EST PM EST Yonathan Smith MD POINT OF CARE TEST ORDERABLE S Performing Organization Address City/State/ZIP [place] [address] [facility] [address] POCT Glucose (08/07/2017 12:08 PM EST) P athologist Signature POC Glucose 77 65 - 199 [facility] mg/dL [facility] Comment: Supplemental ranges: <140 mg/dL before meals <180 mg/dL all other times of the day Specimen Anatomical Collection Method Collection Time Receive d Time (Source) Location / / Volume Laterality Blood specimen 08/07/2017 12:08 8 (specimen) PM EST 12:08 PM EST Yonathan Smith MD POINT OF CARE TEST ORDERABLE S Performing Organization Address City/State/ZIP Code Phon e Number [address] (ABNORMAL) Differential, Automated (08/07/2017 7:30 AM EST) Patholo gist Method Time Signature Neutrophils % 73.8 % [facility] LABORATORY Neutr Abs (ANC) 7.17 (H) 1.70 - [facility] 6.10 [facility] x10(3)/[facility] LABORATORY Lymphocytes % 12.2 % [facility] LABORATORY Lymphocytes Abs 1.2 0.9 - 3.2 [facility] x10(3)/[facility] LABORATORY Monocytes % 9.0 % [facility] LABORATORY Monocyte Abs 0.9 0.3 - 0.9 [facility] x10(3)/[facility] LABORATORY Eosinophils % 3.9 % [facility] LABORATORY Eosinophils Abs 0.4 0.0 - 0.4 [facility] x10(3)/[facility] LABORATORY Basophils % 0.6 % [facility] LABORATORY Basophils Abs 0.1 0.0 - 0.1 [facility] x10(3)/[facility] LABORATORY Immature Gran % 0.50 % [place] [...] Gran Abs 0.05 (H) 0.00 - 0.04 x10(3)/[facility] LABORATORY Specimen Anatomical Collection Method Collection Time Receive d Time (Source) Location / / Volume Laterality Blood specimen 08/07/2017 7:30 AM 018 7:45 (specimen) EST AM EST Resulting Agency Comment Spec In Lab Yonathan Smith MD HEMATOLOGY ORDERABLES Performing Organization Address City/State/[place] [address] (ABNORMAL) Hemogram (08/07/2017 7:30 AM EST) Analysis Performed At Patho logist Time Signature WBC 9.7 (H) 4.0 - 9.5 [facility] x10(3)/[facility] LABORATORY RBC 3.54 (L) 4.58 - [facility] 5.54 [facility] x10(6)/[facility] LABORATORY Hemoglobin 9.9 (L) 13.7 - [facility] 16.5 gm/dL [facility] Hematocrit 32.3 (L) 40.5 - [facility] 48.5 % [facility] MCV 91.2 82.9 - [facility] 93.1 [facility] LABORATORY MCH 28.0 27.5 - [facility] 32.1 pg [facility] MCHC 30.7 (L) 32.0 - [facility] 35.7 gm/dL [facility] Platelets 312 145 - 357 [facility] x10(3)/[facility] LABORATORY RDWSD 53.2 (H) 36.0 - [facility] 45.0 [facility] LABORATORY RDWCV 16.0 (H) 11.4 - [facility] 13.8 % [facility] MPV 8.9 7.6 - 12.9 [facility] LABORATORY nRBC % Auto 0.0 % [facility] LABORATORY nRBC Abs Auto 0.000 0.000 - [facility] 0.000 [facility] x10(3)/[facility] LABORATORY Specimen Anatomical Collection Method Collection Time Receive d Time (Source) Location / / Volume Laterality Blood specimen 08/07/2017 7:30 AM 018 7:45 (specimen) EST AM EST Resulting Agency Comment Spec In Lab Yonathan Smith MD HEMATOLOGY ORDERABLES Performing Organization Address City/State/[place] [address] (ABNORMAL) Basic Metabolic Panel (non-fasting) (08/07/2017 7:30 AM EST) athologist Signature Glucose Lvl 80 65 - 199 [facility] mg/dL [facility] Comment: Diabetes: >=200 [...] estions. Chloride 99 98 - 107 mmol/L [facility] LAB[facility]ORY CO2 29 22 - 31 mmol/L [facility] LAB[facility]ORY Anion Gap 12 5 - 15 mmol/L [facility] LABORATORY Calcium 8.5 8.5 - 10.5 mg/dL [facility] LABORATORY Estimated GFR 59 (L) >=60 [facility] LABORATORY Comment: The reported eGFR should be multiplied b y 1.2 for patients. The MDRD is not an appropriate measure o f renal function for patients with body mass extremes or in patients with acute kidney failure. [email or web address] Being Watched/DHnkdep [email or web address]/DHMCnkf Specimen Anatomical Collection Method Collection Time Receive d Time (Source) Location / / Volume Laterality Blood specimen 08/07/2017 7:30 AM 018 7:45 (specimen) EST AM EST Resulting Agency Comment Spec In Lab Yonathan Smith MD CHEMISTRY ORDERABLES Performing Organization Address City/[facility]/ZIP Code Phon e Number [address] POCT Glucose (08/07/2017 7:27 AM EST) athologist Signature POC Glucose 81 65 - 199 [facility] mg/dL [facility] Comment: Supplemental ranges: <140 mg/dL before meals <180 mg/dL all other times of the day Specimen Anatomical Collection Method Collection Time Receive d Time (Source) Location / / Volume Laterality Blood specimen 08/07/2017 7:27 AM 018 7:27 (specimen) EST AM EST Yonathan Smith MD POINT OF CARE TEST ORDERABLE S Performing Organization Address [facility] Phon e Number [address] APTT (08/07/2017 7:04 AM EST) athologist Signature PTT 34 25 - 35 sec [facility] LAB[facility]ORY Comment: The recommended therapeutic range for fu ll dose, unfractionated heparin at [facility] is 80 ? 114 seconds. The use [...] ORDERABLES Performing Organization Address City/[facility]/ZIP [facility] Phon e Number [address] (ABNORMAL) Prothrombin Time (08/07/2017 7:04 AM EST) athologist Signature PT 17.3 (H) 11.8 - 14.0 [facility] LABORATORY INR 1.4 (H) 0.9 - 1.1 [facility] [...] Address City/State/ZIP Code Phon e Number [address] POCT Glucose (08/07/2017 4:03 AM EST) athologist Signature POC Glucose 93 65 - 199 [facility]/dL [facility] Comment: Supplemental ranges: <140 mg/dL before meals <180 mg/dL all other times of the day Specimen Anatomical Collection Method Collection Time Receive d Time (Source) Location / / Volume Laterality Blood specimen 08/07/2017 4:03 AM 018 4:03 (specimen) EST AM EST Yonathan Smith MD POINT OF CARE TEST ORDERABLE S Performing Organization Address City/State/ZIP Code Phon e Number [address] POCT Glucose (08/07/2017 12:04 AM EST) athologist Signature POC Glucose 107 65 - 199 [facility] mg/dL [facility] Comment: Supplemental ranges: <140 mg/dL before meals <180 mg/dL all other times of the day Specimen Anatomical Collection Method Collection Time Receive d Time (Source) Location / / Volume Laterality Blood specimen 08/07/2017 12:04 8 (specimen) AM EST 12:04 AM EST Yonathan Smith MD POINT OF CARE TEST ORDERABLE S Performing Organization Address City/State/[place] [address] POCT Glucose (08/06/2017 7:56 PM EST) P athologist Signature POC Glucose 178 65 - 199 [facility] mg/dL [facility] Comment: Supplemental ranges: <140 mg/dL before meals <180 mg/dL all other times of the day Specimen Anatomical Collection Method Collection Time Receive d Time (Source) Location / / Volume Laterality Blood specimen 08/06/2017 7:56 PM 018 7:56 (specimen) EST PM EST Yonathan Smith MD POINT OF CARE TEST ORDERABLE S Performing Organization Address City/State/[place] [address] [id number] (08/06/2017 2:32 PM EST) Component Value Ref Test Analysis Performed At Patholo gist Range Method Time Signature VB Text Department: Vascular Surgery Lab VASCUBASE Report Patient: [id number] (GREGORY HOANG) CPT: 5229282 ICD10: I99.8 Referring Physician: YONATHAN SMITH ?? [...] parameters not met)0400 (Not Given - Provider: Henriuqe Marks RN - Reason: Order parameters not [...]
Routine documented in this encounter Care Teams Appellate Law Clerk Relationship Specialty Start Date End Date Lovely Vicente MD PCP - General 04/16/[address] [place] [address] documented as of this encounter
--- OUTSIDE RECORDS SUMMARY | 2022-03-09 15:27 | XMS_ITS | Encounter Summary ---
:1945 [place] [address] Care Team Providers Name Role Phone Lovely Vicente MD Primary Care Provider Encounter Details Date Type Department Care Team Description 08/09/2017 Clinical Support Same Day at [facility] Canceled (D-SCHED ERROR [facility] / CORRECT ION ) [place] [address] Social History Tobacco Use Types Packs/Day [...] Nobles MD [facility] ER CARDIOLOGY [place], [place] [address] (Wo rk) 06/10/2022 Office Visit Dermatology Laura Scherer MD [facility] [address] OLOGY [place], [place] [address] (Wo rk) documented as of this encounter Procedures Procedure Name Priority Date/Time Associated Diagnosis Comme nts DOWN FILLER 08/09/2017 12:00 AM Resul ts for this SCAN EST procedure are i n the results section. documented in this encounter Results SCAN DOC: DOWN FILLER (08/09/2017 12:00 AM EST) Narrative 08/09/2017 12:00 AM EST This result has an attachment that is no t available. Ordered by an unspecified provider. Scanning Provider MEDIA MGR SCAN EXT ORDR/RSLT documented in this encounter Visit Diagnoses Not on filedocumented in this encounter Care Teams Finishing Room Supervisor Relationship Specialty Start Date End Date Lovely Vicente MD PCP - General 04/16/[address] [place] [address] documented as of this encounter
--- OUTSIDE RECORDS SUMMARY | 2022-03-09 15:28 | XMS_ITS | Encounter Summary ---
:1945 Author Organization [facility] [place] [address] Care Team Providers Name Role Phone Lovely Vicente MD Primary Care Provider Reason for Visit Auth/Cert Specialty Diagnoses / Procedures Referred By Contact Refer red To Contact Diagnoses Critical lower limb ischemia CELLULITIS RT FOOT Procedures EMERGENCY Referral ID Status Reason Start Date Expiration Date Visits Requ ested Visits Authorized [id number] 1 1 Encounter Details Date Type Department Care Team Description 08/06/2017 Hospital [facility] [place] [address] Social History Tobacco Use Types Packs/Day [...] Nobles MD [facility] ER CARDIOLOGY [place], [place] [address] (Wo rk) 06/10/2022 Office Visit Dermatology Laura Scherer MD [facility] [address]DERMAT [facility] [place], [place] [address] (Wo rk) documented as of this encounter Visit Diagnoses Not on filedocumented in this encounter Care Teams Track Patrol Relationship Specialty Start Date End Date Lovely Vicente MD PCP - General 04/16/[address] [place] [address] documented as of this encounter
--- OUTSIDE RECORDS SUMMARY | 2022-03-09 15:28 | XMS_ITS | Encounter Summary ---
:1945 [place] [address] Care Team Providers Name Role Phone Lovely Vicente MD Primary Care Provider Encounter Details Date Type Department Care Team Description 08/04/2017 Notes Only Pain Management at Barbra Bruno, [facility] [place] [address] [place] [address] [phone] (Wo rk) Social History Tobacco Use Types [...] bid) at this time. Barbra Soares, MSN, [employer], [facility] documented in this encounter Plan of Treatment Upcoming Encounters Date Type Specialty Care Team Description 03/26/2022 Office Visit Cardiology Vitaliy Nobles MD [facility] ER [address] [place], [place] [address] (Wo rk) 06/10/2022 Office Visit Dermatology Laura Scherer MD [facility] [address] [place], [place] [address] (Wo rk) documented as of this encounter Visit Diagnoses Not on filedocumented in this encounter Care Teams Digital Content Producer Relationship Specialty Start Date End Date Lovely Vicente MD PCP - General 04/16/[address] [place] [address] documented as of this encounter
--- OUTSIDE RECORDS SUMMARY | 2022-03-09 15:28 | XMS_ITS | Encounter Summary ---
:1945 Author Organization [facility] [place] [address] Care Team Providers Name Role Phone Lovely Vicente MD Primary Care Provider Reason for Visit Reason Comments Foot Ulcer WOUND CHECK Auth/Cert Specialty Diagnoses / Procedures Referred By Contact Refer red To Contact Diagnoses Critical lower limb ischemia CELLULITIS RT FOOT Procedures EMERGENCY Referral ID Status Reason Start Date Expiration Date Visits Requ ested Visits Authorized [id number] 1 1 Encounter Details Date Type Department Care Team Description 08/06/2017 [facility] [place] [facility] [address], [place] VASCULAR SURGERY [id number] [place] [address] [phone] Social History Tobacco Use Types Packs/Day Years [...] Smith MD - 08/06/2017 1:00 PM EST [facility] staff: 1. RIGHT leg CLI [...] Nobles MD [facility]ARDI[facility] [address], [place] [address] (Wo rk) 06/10/2022 Office Visit Dermatology Laura Scherer MD [facility] [address] [place], [place] [address] (Wo rk) documented as of this encounter Visit Diagnoses Diagnosis Critical lower limb ischemia Unspecified circulatory system disorder documented in this encounter Care Teams Mine Safety Engineer Relationship Specialty Start Date End Date Lovely Vicente MD PCP - General 04/16/[address] [place] [address] documented as of this encounter
--- OUTSIDE RECORDS SUMMARY | 2022-03-09 15:28 | XMS_ITS | Encounter Summary ---
:1945 [place] [address] Care Team Providers Name Role Phone Lovely Vicente MD Primary Care Provider Reason for Visit Auth/Cert Specialty Diagnoses / Procedures Referred By Contact Refer red To Contact Diagnoses Critical lower limb ischemia CELLULITIS RT FOOT Procedures EMERGENCY Referral ID Status Reason Start Date Expiration Date Visits Requ ested Visits Authorized [id number] 1 1 Encounter Details Date Type Department Care Team Description 08/09/2017 Anesthesia Event Main Operating Room Daniele Lizama MD [facility] [place] [address] [facility] Rob Jones MD [facility] [place] [address] [place] [address] Anesthesia Record Procedure Summary Procedure Name [...] Knowles, Dory arm), right; VAMSI Rios, RN qkng-kzp-tlhnhx catheter system; 20 gauge; 08/16/17; 1047 PIV 07/29/17; 1413; median 07/29/17 1413 by 08/16/17 1047 by cubital vein (antecubital Magdalene Hickey Williams, Dory fossa), left; VAMSI Wyatt, RN sejd-nee-himucf catheter system; 20 gauge; 08/16/17; 1047 PIV 08/06/17; 1742; cephalic 08/06/17 1742 by 0920 by vein (lateral side of Taylor Laureano Danah y, Caitlyn C, arm), right; VAMSI BONNER rfjh-rrt-xzjcbt catheter system; 22 gauge, 1 in length; Eliseo LAUREANO RN VAS; distraction, intradermal injection, tolerated well, appears comfortable; 0; 08/16/17; 0920 Wound 08/07/17; 1335; knee; 08/07/17 1335 by 08/16/17 1047 by laceration; wound occured Barbara Albert iams, Dory GOLD LAYER; 08/16/17; 1047 AVMSI Alonzo, RN PIV 08/07/17; 1734; cephalic 08/07/17 1734 by 1047 by vein (lateral side of Kendrick, Carlos W, Willia ms, Dory arm), left; MARCIE Wyatt RN ioyo-ntr-rhnkla catheter system; 22 gauge; distraction, intradermal injection, [...] Santillan MD - 08/09/2017 9:01 AM EST [facility] Department of Anesthesiology Post-procedure Note Patient: Don Fatima Procedure Summary Date Anesthesia Start Anesthesia Stop Room / Location 08/09/17 0802 0901 [facility] OR 14 / [facility] MAIN OR Procedure Diagnosis Surgeon Responsible Provider AMPUTATION, 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 Nerve [...] performed by Manny Mcknight MD at [facility] MAIN OR ??? PRO CABG, ARTERIAL, SINGLE N/A 07/07/2017 @CABG, USING ARTERIAL GRAFT;SINGLE ARTERIAL GRAFT (WRVU 33.75) performed by Yuan Retana MD at [facility] MAIN OR ??? PRO CABG, ARTERY-VEIN, TWO N/A 07/07/2017 @CABG, TWO VENOUS GRAFTS & ARTERIAL GRAFT (WRVU 7.93) performed by Yuan Retana MD at [facility] MAIN OR ??? PRO COLONOSCOPY, REMV LESN, SNARE 01/16/2014 COLONOSCOPY, POLYPECTOMY, REMOVAL LESION BY SNARE performed by Nohemi Jaimes MD at [facility] ENDOSCOPY ??? PRO ENDOSCOPY W/VIDEO-ASST VEIN HARVEST, CABG Right 07/07/2017 ENDOSCOPIC HARVEST VEIN(S) FOR CABG (WRVU 0.31) performed by Yuan Retana MD at [facility] MAIN OR ??? PRO THYROIDECTOMY 03/28/2013 THYROIDECTOMY, TOTAL OR COMPLETE performed by Manny Mcknight MD at [facility] MAIN OR Social History Substance [...] adequate IV access. Brody Santillan MD PGY-2, [employer] Manager Pager #[phone] Anesthesiology Staff (Dewhirst): Pre-op summary note as [...] MD [facility] [address] [place], [place] [address] (Wo rk) 06/10/2022 Office Visit Dermatology Laura Scherer MD [facility] [address] [place], [place] [address] (Wo rk) documented as of [...] Length: 10 cm Gauge: 21 Needle Type: V-gqvzx-vrnyu Medication injection made in crementally with aspirations. [...] ml Resident: Second Resident: Fellow: Attending Physician: ORB JONES ~~~~~~~~~~~~~~~~~~~~~~~~~~~~ ~~~~~~~~~~~~~~~~~~~~~~~~~~~~~~~~ documented in this encounter [...] Procedure) documented in this encounter Care Teams Adhesion Tester Relationship Specialty Start Date End Date Lovely Vicente MD PCP - General 04/16/[address] [place] [address] documented as of this encounter
--- OUTSIDE RECORDS SUMMARY | 2022-03-09 15:28 | XMS_ITS | Encounter Summary ---
:1945 Author Organization [facility] [place] [address] Care Team Providers Name Role Phone Lovely Vicente MD Primary Care Provider Reason for Visit Auth/Cert Specialty Diagnoses / Procedures Referred By Contact Refer red To Contact Diagnoses Critical lower limb ischemia CELLULITIS RT FOOT Procedures EMERGENCY Referral ID Status Reason Start Date Expiration Date Visits Requ ested Visits Authorized [id number] 1 1 Encounter Details Date Type Department Care Team Description 08/09/2017 Surgery Main Operating Room Yonathan Smith AM PUTATION, Mary Hitchcock MD TRANSMETATARSAL ([facility] 12.71) [facility] [address] [place] [address] [place] [address] [phone] Social History Tobacco Use Types Packs/Day Years [...] 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 [...] Dorsalis Pedis (Ankle) Artery ?132 ? 0.94 ??Cedar-Biphasic ? Posterior Tibial (Ankle) Artery ??154 ? 1.10 ??Cedar-Biphasic ? Fourth Toe ? 67 ?0.48 ?? [...] the foot. Discharge Conditions/Prognosis: Good Discharge to: [facility] Rehab Discharge Medications: Your [...] For any problems or questions please call [phone] ZELDA Smith, fine hairer Nurse Clinician For issues on weeknights after 5pm and weekends please call [phone] and ask for the Vascular Fellow facility operations manager. General Instructions None Future Appointments and Orders Future Appointments Provider Department Dept Phone 08/26/2017 4:00 PM Aurelia Rivera PA Vascular Surgery at [place] [phone] 09/07/2017 3:00 PM LAB, THREE L Lab 3L [facility] [phone] 09/07/2017 4:00 PM Luz Prescott MD Endocrinology at [place] [phone] 09/09/2017 8:00 AM Barbra Soares APRN Pain Management at [place] [phone] Please bring a list of your current [...] For any problems or questions please call [phone] ZELDA Smith, fine hairer Nurse Clinician For issues on weeknights after 5pm and weekends please call [phone] and ask for the Vascular Fellow facility operations manager. documented in this encounter Medications at [...] Discharge Note Patient Destination: [facility] ([facility]) [address] [id number] Transportation: with (at bedside) Time of Discharge: by 12 noon Level of Care: swing Patient Aware: yes Family Notified: yes Md to call report to: Yissel Quintero DIRECTOR MEDICAL AFFAIRS already called RN to call report to: [phone] Shirin Wolf Office of Care Management Pager [phone] Shirin Wolf RN - 08/16/2017 10:50 AM EST [facility] has offered pt swing bed. Pt and accept bed. will transport via car. DIRECTOR MEDICAL AFFAIRS Yissel Quintero aware; d/c paperwork will be completed by 12 noon. [facility] requests pt arrival by 1400 today; DIRECTOR MEDICAL AFFAIRS, RN, and family aware. DIRECTOR MEDICAL AFFAIRS called [facility] and was told that they prefer pt to arrive with wound vac dressing applied but clamped. DIRECTOR MEDICAL AFFAIRS applied new wound vac dressing. RN has [facility] number to call report. PASSR completed; DIRECTOR MEDICAL AFFAIRS paged to request provider signature in highlighted space. Indigo from [facility] notified via email that home wound vac now cancelled; [facility] has picked up from room and order cancelled. Packet started and provided to control panel operator crude unit. Medicare important message explained to patient, patient signed. Copy provided to patient and signature page to OCM for inclusion in pt EMR. L Radha Powers Yoselin - 08/16/2017 10:34 AM EST Office of Care Management/Staff Electronic Warfare Officer Patient Name: Gregory Hoang : 1945 Patient has been offered a swing bed at [facility]. The patient will be transported by private transportation. No MD to MD report necessary Please call Nursing Report to [phone], ask for brush finisher. Info to accompany patient: Narcotic Prescriptions Copies of Medication Administration Records and IV sheets for past 10 days. Plan: Staff Electronic Warfare Officer will be available to the patient and On Site Soil Evaluator-RN and/or Communications Designer for further assistance. Patient will be discharged to: [address] [place] [id number] Radha Powers, Staff Electronic Warfare Officer Mira Truong, VAMSI - 08/15/2017 10:05 PM EST [address] Flores to ask if he wanted to hold metoprolol dose. BP 95/58. OK to hold this dose Courtney Brito - 08/15/2017 3:26 PM EST Office of Care Management(OCM)/Staff Electronic Warfare Officer(RS)/ D/C Planning re : Patient is medically ready for d/c today. RS has been in contact with [facility] to see if they could offer a bed. [facility] is still reviewing the case and need their MD to review chart prior to accepting or declining. OCM team needs to check in with [facility] tomorrow to check on status. 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 Vac in [...] would like information about patient's referral to: [facility] PHONE: [phone] FAX: [phone] CM spoke with RS who said that [...] rehab. Await recommendations from PT. Covering pager #[phone]. 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 Scientific Investigator Kaitlin Saha, RN Pager #[phone] Payam Rosales - 08/13/2017 2:37 PM EST Traffic Representative Encounter Note Patient Name: Gregory Hoang : [id number] MR#: [id number] Admit Date: 08/06/2017 1:41 PM Hospital Day 7 days Narrative: Visited to introduce and assess acceptance of Traffic Representative services. Pt was awake, alert, oriented and in chair and family was there. Assessment:Patient coping positively with stresses of illness/hospitalization at this time. Pt says that he is hoping to get better and his family was there. Pt says that he has family care and supportand taking one day at time. Intervention and Outcome: Provided emotional support and encouraging presence. Traffic Representative services accepted.Conversation to build trusting relationship.Provided pastoral [...] 8.5 New Imaging ?? None new Assessment: Gergory Hoang is a 72 y.o. 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 A letter describing our affiliations was reviewed with them and theywere educated about their right to choose where referrals are placed. Patient requests referral to [facility] [employer]. PHONE: [phone] FAX: [phone]. And Home NPWT (Negative Pressure Wound Therapy) aka wound vac device made available to pt. Serial # confirmed. Reviewed [facility] Proof of Delivery/Assignment of Benefits Statement(POD/AOB) Form w patient or authorized agent signing on behalf of patient. Copy of POD/AOB provided to pt and other copy faxed to [employer] @ fax# [phone] Expected date of discharge: 08/12/2017. 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 Address: [address] [place] [address] [place] [address] (home) Mobile: Telephone Information: Referring Provider: No [...] Manny Mcknight MD at [facility] MAIN OR ??? PRO CABG, ARTERIAL, SINGLE N/A 07/07/2017 @CABG, USING ARTERIAL GRAFT;SINGLE ARTERIAL GRAFT (WRVU 33.75) performed by Yuan Retana MD at [facility] MAIN OR ??? PRO CABG, ARTERY-VEIN, TWO N/A 07/07/2017 @CABG, TWO VENOUS GRAFTS & ARTERIAL GRAFT (WRVU 7.93) performed by Yuan Retana MD at [facility] MAIN OR ??? PRO COLONOSCOPY, REMV LESN, SNARE 01/16/2014 COLONOSCOPY, POLYPECTOMY, REMOVAL LESION BY SNARE performed by Nohemi Jaimes MD at [facility] ENDOSCOPY ??? PRO ENDOSCOPY W/VIDEO-ASST VEIN HARVEST, CABG Right 07/07/2017 ENDOSCOPIC HARVEST VEIN(S) FOR CABG (WRVU 0.31) performed by Yuan Retana MD at [facility] MAIN OR ??? 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 Heparin gtt continues to run. Pt a/ox4. [...] of : 1945 AGE 72 y.o. Address: [address] [place] [address] [place] [address] (home) Mobile: Telephone Information: Referring Provider: No [...] Manny Mcknight MD at [facility] MAIN OR ??? PRO CABG, ARTERIAL, SINGLE N/A 07/07/2017 @CABG, USING ARTERIAL GRAFT;SINGLE ARTERIAL GRAFT (WRVU 33.75) performed by Yuan Retana MD at [facility] MAIN OR ??? PRO CABG, ARTERY-VEIN, TWO N/A 07/07/2017 @CABG, TWO VENOUS GRAFTS & ARTERIAL GRAFT (WRVU 7.93) performed by Yuan Retana MD at [facility] OR ??? PRO COLONOSCOPY, REMV LESN, SNARE 01/16/2014 COLONOSCOPY, POLYPECTOMY, REMOVAL LESION BY SNARE performed by Nohemi Jaimes MD at [facility] ENDOSCOPY ??? PRO ENDOSCOPY W/VIDEO-ASST VEIN HARVEST, CABG Right 07/07/2017 ENDOSCOPIC HARVEST VEIN(S) FOR CABG (WRVU 0.31) performed by Yuan Retana MD at [facility] MAIN OR ??? 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 Unsuccessful draw attempt, another material spreader will come [facility] to collect blood for PTT test. 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 Vascular resident facility operations manager and will forward result to the team prior to rounds. Melba Cruz RN - 08/08/2017 4:06 AM EST Fall Event Note Gregory Hoang [id number] 08/08/2017 Time of Fall: 0400 Was the [...] Starkey MD - 08/07/2017 4:32 PM EST [facility] staff: Patient was seen and [...] 8.6 New Imaging ?? None new Assessment: Gergory Hoang is a 72 y.o. 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 [address] Vagras to ask for pain medication for patient. 05.mg oxycodone given. 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 [...] Manny Mcknight MD at [facility] MAIN OR ??? PRO CABG, ARTERIAL, SINGLE N/A 07/07/2017 @CABG, USING ARTERIAL GRAFT;SINGLE ARTERIAL GRAFT (WRVU 33.75) performed by Yuan Retana MD at [facility] MAIN OR ??? PRO CABG, ARTERY-VEIN, TWO N/A 07/07/2017 @CABG, TWO VENOUS GRAFTS & ARTERIAL GRAFT (WRVU 7.93) performed by Yuan Retana MD at [facility] MAIN OR ??? PRO COLONOSCOPY, REMV LESN, SNARE 01/16/2014 COLONOSCOPY, POLYPECTOMY, REMOVAL LESION BY SNARE performed by Nohemi Jaimes MD at [facility] ENDOSCOPY ??? PRO ENDOSCOPY W/VIDEO-ASST VEIN HARVEST, CABG Right 07/07/2017 ENDOSCOPIC HARVEST VEIN(S) FOR CABG (WRVU 0.31) performed by Yuan Retana MD at [facility] MAIN OR ??? PRO THYROIDECTOMY 03/28/2013 THYROIDECTOMY, TOTAL OR COMPLETE performed by Manny Mcknight MD at [facility] MAIN OR Functional Status/Social Hx: Quit [...] left blue toes with CTA showing R COATER HELPER pseudoaneurysm (now thrombosed) and occluded ATs [...] 2.5x80 5. Completion RLE angiogram 6. L COATER HELPER angiogram 7. 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 - L COATER HELPER angriogram demonstrated: High femoral bifurcation over the proximal half of the femoral head. L COATER HELPER access in the distal L COATER HELPER. - Closure device: Mynx Technical Procedure: [...] for a 45cm 5F Destination. V18 and [place] and QuickCross catheters were used to select [...] 5F. A stationed picture of the L COATER HELPER was performed as the patient was noted to have a very high bifurcation. Access appeared in the distal R COATER HELPER. Closure and sheath removal was performed [...] PM EST 1440 report called to 5 bruneau nurse Tessa RN documented in this encounter [...] with pt and pt's spouse. Discharge to [facility]. Goal: Individualization & Mutuality [...] sit/sit to supine -- Bed Mobility Goal, Karnes Level independent -- Bed Mobility Goal, Date [...] days -- Transfer Training Goal, Activity Type iyc-ut-vlnxx/sispi-kp-yog -- Transfer Train Goal, Karnes Level conditional independence -- Transfer Train Goal, [...] call cabello within reach, Hourly rounding by RN/PASSENGER TIRE INSPECTOR. Bed alarm / Chair alarm. Patient-specific fall [...] Smith MD - 08/15/2017 6:28 PM EST [facility] Operative Note Patient Name: Gregory Hoang : [id number] MR#: [id number] Case Date: 08/09/2017 Surgeon: Surgeon(s) and Role: [...] 2.5x80 5. Completion RLE angiogram 6. L COATER HELPER angiogram 7. Mynx closure Precautions/Restrictions: fall, [...] feet/ bed -> bathroom). Anticipated Discharge Disposition: penitentiary facility, other (see comments) (or swing bed) Pager: [phone] BASSAM ELIAS, PT 08/14/2017 Inpatient Physical Therapy [...] to Achieve by discharge Gait Training Goal, Karnes Level conditional independence;set up required Gait Training [...] these facilities over the weekend except for [facility]. CM spoke with [facility] CM Drea Sandhu, VAMSI who said that they do not anticipate any beds over the weekend. Reviewed with patient/ that they need to be aware that patient will need to take the first bed offered at the facilities that they make referrals to. Their choices are: 1- [facility] PHONE: [phone] FAX: [phone] 2- [facility] ([facility]) [address] [place] [address] 3- [facility])([facility]) [address] [place] [address] I have discussed Medicare/Private Insurance [...] RS/CM on Wednesday to follow-up. Covering pager #[phone] for today. Plan of Care - Henrique [...] with additional findings of pseudoaneurysm on R COATER HELPER and bilateral anterior tibial artery occlusions. [...] an outpatient once discharged. Have patient call [phone] to set up an appointment. Follow-up: Dermatology will sign-off for now. Please do not hesitate to contact us if you have any questions orconcerns. Impression and Recommendations discussed with primary team on 08/13/2017. Karo Henderson MD Resident in Dermatology Section of Dermatology, Department of Surgery [facility] Pager [phone] Patient seen and evaluated with staff Tonguer: Halima Cordero MD Section of Dermatology [facility] Level of Resident Supervision: Direct Supervision [...] Outcome: Ongoing (Interventions Implemented as Appropriate) 08/12/17 2136 Coping/Psychosocial Plan Of Care Reviewed With patient;spouse [...] 2.5x80 5. Completion RLE angiogram 6. L COATER HELPER angiogram 7. Mynx closure Active Non-Hospital [...] home with home health ([facility] PT&OT) Pager: [phone] YASIR TELLO OT 08/12/2017 Occupational Therapy Rehabilitation [...] 2.5x80 5. Completion RLE angiogram 6. L COATER HELPER angiogram 7. Mynx closure Past Medical [...] with 24/7 assistance and maximal services) Pager: [phone] NICHOLAS MORA, PT 08/12/2017 Physical Therapy Rehabilitation [...] sit/sit to supine -- Bed Mobility Goal, Karnes Level independent -- Bed Mobility Goal, Outcome Achieved -- goal ongoing Goal: Gait Training Goal Stand Alone Therapy Goal Outcome: Ongoing (Interventions Implemented as Appropriate) 08/11/17 1310 08/12/17 1510 Gait Training Goal Gait Training Goal, Date Established 08/11/17 -- Gait Training Goal, Time to Achieve 5 - 7 days -- Gait Training Goal, Karnes Level conditional independence -- Gait Training Goal, [...] days -- Transfer Training Goal, Activity Type hyh-ba-rzezk/znfoo-ou-oxc -- Transfer Train Goal, Karnes Level conditional independence -- Transfer Training Goal, [...] Smith MD - 08/11/2017 2:52 PM EST [facility] Operative Note Patient Name: Gregory Hoang : [id number] MR#: [id number] Case Date: 08/11/2017 Surgeon: Surgeon(s) and Role: [...] blue toe syndrome (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 Completion RLE angiogram 6. L COATER HELPER angiogram 7. Mynx closure He is [...] Anticipated Discharge Disposition: inpatient rehabilitation facility Pager: [phone] LAWRENCE GONZALEZ, PT 08/11/2017 Physical Therapy Rehabilitation [...] to sit/sit to supine Bed Mobility Goal, Karnes Level independent Goal: Gait Training Goal Stand Alone Therapy Goal Outcome: Ongoing (Interventions Implemented as Appropriate) 08/11/17 1310 Gait Training Goal Gait Training Goal, Date Established 08/11/17 Gait Training Goal, Time to Achieve 5 - 7 days Gait Training Goal, Karnes Level conditional independence Gait Training Goal, Assist [...] 7 days Transfer Training Goal, Activity Type dor-cq-qtskh/enuji-ik-tuz Transfer Train Goal, Karnes Level conditional independence Plan of David DelloAnnetta [...] call cabello within reach, Hourly rounding by RN/PASSENGER TIRE INSPECTOR. Bed alarm / Chair alarm. ? Patient-specific [...] 04/05/2013 Hospitalizations Within the Past 30 Days: [facility] 07/20/2017 Anticipated Length Of Stay (If known): Expected Length of Hospitalization: 5-7 days2-3 days Current Decision-Making Capacity: Alert and oriented x 4 Advance Care Planning: on file Kisha Hoang [facility] [phone] Current Coping/Education/Information Needs: pt and spouse state [...] Health/Prescription Coverage: Primary Insurance: MEDICARE Secondary Insurance: [place] Prescription Coverage: See above Preferred Pharmacy: [id number] Other: N/A Primary Care Provider: Lovely Vicente MD [phone] Patient/Caregiver Goals of Treatment: Patient plans to [...] of care planning. Kaitlin Saha RN Pager: [phone] Plan of Care - Melba Jaramillo RN [...] Overview Goal: Plan of Care Review 08/08/17 0324 Coping/Psychosocial Plan Of Care Reviewed With patient [...] call cabello within reach, Hourly rounding by RN/PASSENGER TIRE INSPECTOR. Bed alarm / Chair alarm. Patient-specific fall prevention interventions for sensory deficits provided, if applicable: [X] Yes [facility]PG GOAL OUTCOME EVALUATION: Goal: Fall Prevention-Safe Patient Handling Outcome: Ongoing (Interventions Implemented as Appropriate) 08/06/17 1700 08/06/17199908/07/17 6454 Positioning Body Position -- up in chair [...] at bedside and MD TEAM Carrying pager [phone] contacted (via Radio page) and notified of [...] MD [facility] [address] [place], [place] [address] (Wo rk) 06/10/2022 Office Visit Dermatology Laura Scherer MD [facility] [address] [place], [place] [address] (Wo rk) documented as [...] section. TYPE AND SCREEN Routine 08/09/2017 1:10 ([facility]/SHANDA) AM EST BASIC METABOLIC PANEL Routine 08/09/2017 [...] Signature POC Glucose 160 65 - 199 [facility] mg/dL [facility] Comment: Supplemental ranges: <140 mg/dL before meals <180 mg/dL all other times of the day Specimen Anatomical Collection Method Collection Time Receive d Time (Source) Location / / Volume Laterality Blood specimen 08/16/2017 7:28 AM 018 7:28 (specimen) EST AM EST Yonathan Smith MD POINT OF CARE TEST ORDERABLE S Performing Organization Address City/State/ZIP Code Phon e Number [place] [address] (ABNORMAL) Differential, Automated (08/16/2017 5:08 AM EST) Patholo gist Method Time Signature Neutrophils % 73.9 % [facility] Neutr Abs (ANC) 5.37 1.70 - [facility] 6.10 [facility] x10(3)/[facility] LABORATORY Lymphocytes % 10.1 % [facility] Lymphocytes Abs 0.7 (L) 0.9 - 3.2 [facility] x10(3)/[facility] LABORATORY Monocytes % 10.1 % [facility] Monocyte Abs 0.7 0.3 - 0.9 [facility] x10(3)/[facility] LABORATORY Eosinophils % 5.1 % [facility] Eosinophils Abs 0.4 0.0 - 0.4 [facility] x10(3)/[facility] LABORATORY Basophils % 0.4 % [facility] Basophils Abs 0.0 0.0 - 0.1 [facility] x10(3)/[facility] LABORATORY Immature Gran % 0.40 % [...] Gran Abs 0.03 0.00 - 0.04 x10(3)/[facility] LABORATORY Specimen Anatomical Collection Method Collection Time Receive d Time (Source) Location / / Volume Laterality Blood specimen 08/16/2017 5:08 AM 018 5:20 (specimen) EST AM EST Resulting Agency Comment Spec In Lab Yonathan Smith MD HEMATOLOGY ORDERABLES Performing Organization Address City/State/[place] [address] (ABNORMAL) Hemogram (08/16/2017 5:08 AM EST) Analysis Performed At Patho logist Time Signature WBC 7.3 4.0 - 9.5 [facility] x10(3)/[facility] LABORATORY RBC 3.36 (L) 4.58 - [facility] 5.54 [facility] x10(6)/[facility] LABORATORY Hemoglobin 9.7 (L) 13.7 - [facility] 16.5 gm/dL [facility] Hematocrit 30.3 (L) 40.5 - [facility] 48.5 % [facility] MCV 90.2 82.9 - BARBARA OLIVASCK 93.1 [facility] LABORATORY MCH 28.9 27.5 - [place] OL[place] 32.1 pg [facility] MCHC 32.0 32.0 - BARBARA DAVIS 35.7 gm/dL [facility] Platelets 282 145 - 357 [facility] x10(3)/[facility] LABORATORY RDWSD 53.9 (H) 36.0 - [place] OLIVASCK 45.0 [facility] LABORATORY RDWCV 16.5 (H) 11.4 - BARBARA RYAN 13.8 % [facility] MPV 9.0 7.6 - 12.9 [facility] LABORATORY nRBC % Auto 0.0 % [facility] LABORATORY nRBC Abs Auto 0.000 0.000 - BARBARA ZHAORYAN 0.000 [facility] x10(3)/[facility] LABORATORY Specimen Anatomical Collection Method Collection Time Receive d Time (Source) Location / / Volume Laterality Blood specimen 08/16/2017 5:08 AM 018 5:20 (specimen) EST AM EST Resulting Agency Comment Spec In Lab Yonathan Smith MD HEMATOLOGY ORDERABLES Performing Organization Address City/State/[place] [address] (ABNORMAL) Basic Metabolic Panel (non-fasting) (08/16/2017 5:08 AM EST) P athologist Signature Glucose Lvl 141 65 - 199 [facility] mg/dL [facility] LABORATORY Comment: Diabetes: >=200 mg/dL plus symp toms BUN 29 (H) 10 - 20 mg/dL [facility] LABORATORY Creatinine 1.25 0.80 - [...] 15 mmol/L [facility] LABORATORY Calcium 8.7 8.5 - 10.5 mg/dL [facility] LABORATORY Estimated GFR 57 (L) >=60 [facility] LABORATORY Comment: The reported eGFR should be multiplied b y 1.2 for patients. The MDRD is not an appropriate measure o f renal function for patients with body mass extremes or in patients with acute kidney failure. http://Stylehive/DHnkdep http://Stylehive/DHMCnkf Specimen Anatomical Collection Method Collection Time Receive d Time (Source) Location / / Volume Laterality Blood specimen 08/16/2017 5:08 AM 018 5:20 (specimen) EST AM EST Resulting Agency Comment Spec In Lab Yonathan Smith MD CHEMISTRY ORDERABLES Performing Organization Address City/State/[facility] [place] [address] (ABNORMAL) Prothrombin Time (08/16/2017 [...] Address City/State/ZIP Code Phon e Number [address] POCT Glucose (08/16/2017 4:09 AM EST) athologist Signature POC Glucose 147 65 - 199 [place] RY[place] mg/dL [facility] LABORATORY Comment: Supplemental ranges: <140 mg/dL [...] [facility]/ZIP Code Phon e Number [address] POCT Glucose (08/15/2017 11:56 PM EST) athologist Signature POC Glucose 176 65 - 199 [place] ZHAORYAN mg/dL [facility] LABORATORY Comment: Supplemental ranges: <140 mg/dL before meals <180 mg/dL all other times of the day Specimen Anatomical Collection Method Collection Time Receive d Time (Source) Location / / Volume Laterality Blood specimen 08/15/2017 11:56 8 (specimen) PM EST 11:56 PM EST Yonathan Smith MD POINT OF CARE TEST ORDERABLE S Performing Organization Address City/State/ZIP Code Phon e Number [place], [place] [id number] [place] [address] POCT Glucose (08/15/2017 8:05 PM EST) athologist Signature POC Glucose 136 65 - 199 [place] mg/dL [facility] LABORATORY Comment: Supplemental ranges: <140 mg/dL before meals <180 mg/dL all other times of the day Specimen Anatomical Collection Method Collection Time Receive d Time (Source) Location / / Volume Laterality Blood specimen 08/15/2017 8:05 PM 018 8:05 (specimen) EST PM EST Yonathan Smith MD POINT OF CARE TEST ORDERABLE S Performing Organization Address City/State/ZIP [place] [address] (ABNORMAL) POCT Glucose (08/15/2017 4:50 PM EST) athologist Signature POC Glucose 232 (H) 65 - 199 [place] RYAN mg/dL [facility] LABORATORY Comment: Supplemental ranges: <140 mg/dL before meals <180 mg/dL all other times of the day Specimen Anatomical Collection Method Collection Time Receive d Time (Source) Location / / Volume Laterality Blood specimen 08/15/2017 4:50 PM 018 4:50 (specimen) EST PM EST Yonathan Smith MD POINT OF CARE TEST ORDERABLE S Performing Organization Address City/State/ZIP Code Phon e Number [address] POCT Glucose (08/15/2017 12:04 PM EST) athologist Signature POC Glucose 135 65 - 199 [facility]dL [facility] LABORATORY Comment: Supplemental ranges: <140 mg/dL before meals <180 mg/dL all other times of the day Specimen Anatomical Collection Method Collection Time Receive d Time (Source) Location / / Volume Laterality Blood specimen 08/15/2017 12:04 8 (specimen) PM EST 12:04 PM EST Yonathan Smith MD POINT OF CARE TEST ORDERABLE S Performing Organization Address City/State/[place] [address] POCT Glucose (08/15/2017 7:36 AM EST) athologist Signature POC Glucose 124 65 - 199 [place] ZHAORYAN mg/dL [facility] LABORATORY Comment: Supplemental ranges: <140 mg/dL before meals <180 mg/dL all other times of the day Specimen Anatomical Collection Method Collection Time Receive d Time (Source) Location / / Volume Laterality Blood specimen 08/15/2017 7:36 AM 018 7:36 (specimen) EST AM EST Yonathan Smith MD POINT OF CARE TEST ORDERABLE S Performing Organization Address City/State/[place] [address] (ABNORMAL) Differential, Automated (08/15/2017 6:22 AM EST) Patholo gist Method Time Signature Neutrophils % 76.1 % [facility] LABORATORY Neutr Abs (ANC) 6.62 (H) 1.70 - [facility] 6.10 [facility] x10(3)/[facility] LABORATORY Lymphocytes % 9.3 % [facility] LABORATORY Lymphocytes Abs 0.8 (L) 0.9 - 3.2 [facility] x10(3)/[facility] LABORATORY Monocytes % 9.4 % [facility] LABORATORY Monocyte Abs 0.8 0.3 - 0.9 [facility] x10(3)/[facility] LABORATORY Eosinophils % 4.0 % [facility] LABORATORY Eosinophils Abs 0.4 0.0 - 0.4 [facility] x10(3)/[facility] LABORATORY Basophils % 0.6 % [facility] LABORATORY Basophils Abs 0.0 0.0 - 0.1 [facility] x10(3)/[facility] LABORATORY Immature Gran % 0.60 % [...] Gran Abs 0.05 (H) 0.00 - 0.04 x10(3)/[facility] LABORATORY Specimen Anatomical Collection Method Collection Time Receive d Time (Source) Location / / Volume Laterality Blood specimen 08/15/2017 6:22 AM 018 6:33 (specimen) EST AM EST Resulting Agency Comment Spec In Lab Yonathan Smith MD HEMATOLOGY ORDERABLES Performing Organization Address City/State/ZIP Code Phon e Number [address] (ABNORMAL) Hemogram (08/15/2017 6:22 AM EST) Analysis Performed At Patho logist Time Signature WBC 8.7 4.0 - 9.5 [facility] x10(3)/[facility] LABORATORY RBC 3.21 (L) 4.58 - [place] 5.54 [facility] x10(6)/[facility] LABORATORY Hemoglobin 9.1 (L) 13.7 - [facility] 16.5 gm/dL [facility] LABORATORY Hematocrit 29.0 (L) 40.5 - BAR[place] RYAN 48.5 % [facility] LABORATORY MCV 90.3 82.9 - [facility] 93.1 [facility] LABORATORY MCH 28.3 27.5 - [facility] 32.1 pg [facility] LABORATORY MCHC 31.4 (L) 32.0 - [place] RYAN 35.7 gm/dL [facility] LABORATORY Platelets 254 145 - 357 [facility] x10(3)/[facility] LABORATORY RDWSD 53.9 (H) 36.0 - [facility] 45.0 [facility] LABORATORY RDWCV 16.3 (H) 11.4 - [facility] 13.8 % [facility] LABORATORY MPV 8.8 7.6 - 12.9 [facility] LABORATORY nRBC % Auto 0.0 % [facility] LABORATORY nRBC Abs Auto 0.000 0.000 - [facility] 0.000 [facility] x10(3)/[facility] LABORATORY Specimen Anatomical Collection Method Collection Time Receive d Time (Source) Location / / Volume Laterality Blood specimen 08/15/2017 6:22 AM 018 6:33 (specimen) EST AM EST Resulting Agency Comment Spec In Lab Yonathan Smith MD HEMATOLOGY ORDERABLES Performing Organization Address City/State/[place] [address] (ABNORMAL) Basic Metabolic Panel (non-fasting) (08/15/2017 6:22 AM EST) P athologist Signature Glucose Lvl 118 65 - 199 [facility] mg/dL [facility] LABORATORY Comment: Diabetes: >=200 mg/dL plus symp toms BUN 27 (H) 10 - 20 mg/dL [facility] 15 mmol/L [facility] LABORATORY Calcium 8.8 8.5 - 10.5 mg/dL [facility] LABORATORY Estimated GFR >60 >=60 [facility] LABORATORY Comment: The reported eGFR should be multiplied b y 1.2 for patients. The MDRD is not an appropriate measure o f renal function for patients with body mass extremes or in patients with acute kidney failure. http://Stylehive/DHnkdep http://Stylehive/DHMCnkf Specimen Anatomical Collection Method Collection Time Receive d Time (Source) Location / / Volume Laterality Blood specimen 08/15/2017 6:22 AM 018 6:33 (specimen) EST AM EST Resulting Agency Comment Spec In Lab Yonathan Smith MD CHEMISTRY ORDERABLES Performing Organization Address City/State/[place] [address] (ABNORMAL) Prothrombin Time (08/15/2017 [...] Address City/State/ZIP Code Phon e Number [address] POCT Glucose (08/15/2017 4:33 AM EST) athologist Signature POC Glucose 164 65 - 199 [place] RYAN mg/dL [facility] LABORATORY Comment: Supplemental ranges: <140 mg/dL [...] [facility]/ZIP Code Phon e Number [address] POCT Glucose (08/15/2017 12:12 AM EST) athologist Signature POC Glucose 89 65 - 199 [place] RYAN mg/dL [facility] LABORATORY Comment: Supplemental ranges: <140 mg/dL [...] [facility]/ZIP Code Phon e Number [address] (ABNORMAL) POCT Glucose (08/14/2017 8:07 PM EST) athologist Signature POC Glucose 204 (H) 65 - 199 [place] RY[place] mg/dL [facility] LABORATORY Comment: Supplemental ranges: <140 mg/dL before meals <180 mg/dL all other times of the day Specimen Anatomical Collection Method Collection Time Receive d Time (Source) Location / / Volume Laterality Blood specimen 08/14/2017 8:07 PM 018 8:07 (specimen) EST PM EST Yonathan Smith MD POINT OF CARE TEST ORDERABLE S Performing Organization Address City/State/ZIP Code Phon e Number [address] POCT Glucose (08/14/2017 5:11 PM EST) athologist Signature POC Glucose 174 65 - 199 [place] ZHAORYAN mg/dL [facility] LABORATORY Comment: Supplemental ranges: <140 mg/dL before meals <180 mg/dL all other times of the day Specimen Anatomical Collection Method Collection Time Receive d Time (Source) Location / / Volume Laterality Blood specimen 08/14/2017 5:11 PM 018 5:11 (specimen) EST PM EST Yonathan Smith MD POINT OF CARE TEST ORDERABLE S Performing Organization Address City/State/ZIP Code Phon e Number [address] POCT Glucose (08/14/2017 12:10 PM EST) athologist Signature POC Glucose 141 65 - 199 [place] ZHAORY[place] mg/dL [facility] LABORATORY Comment: Supplemental ranges: <140 mg/dL before meals <180 mg/dL all other times of the day Specimen Anatomical Collection Method Collection Time Receive d Time (Source) Location / / Volume Laterality Blood specimen 08/14/2017 12:10 8 (specimen) PM EST 12:10 PM EST Yonathan Smith MD POINT OF CARE TEST ORDERABLE S Performing Organization Address City/State/ZIP Code Phon e Number [address] POCT Glucose (08/14/2017 8:07 AM EST) athologist Signature POC Glucose 158 65 - 199 [place] ZHAORYAN mg/dL [facility] LABORATORY Comment: Supplemental ranges: <140 mg/dL before meals <180 mg/dL all other times of the day Specimen Anatomical Collection Method Collection Time Receive d Time (Source) Location / / Volume Laterality Blood specimen 08/14/2017 8:07 AM 018 8:07 (specimen) EST AM EST Yonathan Smith MD POINT OF CARE TEST ORDERABLE S Performing Organization Address City/State/[place] [address] (ABNORMAL) Differential, Automated (08/14/2017 4:52 AM EST) [facility] Method Time Signature Neutrophils % 78.6 % [facility] LABORATORY Neutr Abs (ANC) 7.70 (H) 1.70 - [facility] 6.10 [facility] x10(3)/[facility] L LABORATORY Lymphocytes % 7.8 % [facility] LABORATORY Lymphocytes Abs 0.8 (L) 0.9 - 3.2 [facility] x10(3)/[facility] LABORATORY Monocytes % 8.8 % [facility] LABORATORY Monocyte Abs 0.9 0.3 - 0.9 [facility] x10(3)/[facility] LABORATORY Eosinophils % 4.0 % [facility] LABORATORY Eosinophils Abs 0.4 0.0 - 0.4 [facility] x10(3)/[facility] LABORATORY Basophils % 0.5 % [facility] LABORATORY Basophils Abs 0.0 0.0 - 0.1 [facility] x10(3)/[facility] LABORATORY Immature Gran % [...] 0.03 0.00 - 0.04 x10(3)/[facility] LABORATORY Specimen Anatomical Collection Method Collection Time Receive d Time (Source) Location / / Volume Laterality Blood specimen 08/14/2017 4:52 AM 018 5:08 (specimen) EST AM EST Resulting Agency Comment Spec In Lab Yonathan Smith MD HEMATOLOGY ORDERABLES Performing Organization Address City/State/ZIP Code Phon e Number [address] (ABNORMAL) Hemogram (08/14/2017 4:52 AM EST) Analysis Performed At Patho logist Time Signature WBC 9.8 (H) 4.0 - 9.5 [facility] x10(3)/[facility] LABORATORY RBC 3.32 (L) 4.58 - [place] RYAN 5.54 [facility] x10(6)/[facility] LABORATORY Hemoglobin 9.5 (L) 13.7 - [facility] 16.5 gm/dL [facility] LABORATORY Hematocrit 30.3 (L) 40.5 - [facility] 48.5 % [facility] LABORATORY MCV 91.3 82.9 - [facility] 93.1 [facility] LABORATORY MCH 28.6 27.5 - [facility] 32.1 pg [facility] LABORATORY MCHC 31.4 (L) 32.0 - [facility] 35.7 gm/dL [facility] LABORATORY Platelets 263 145 - 357 [facility] x10(3)/[facility] LABORATORY RDWSD 54.8 (H) 36.0 - [facility] 45.0 [facility] LABORATORY RDWCV 16.5 (H) 11.4 - [facility] 13.8 % [facility] LABORATORY MPV 9.1 7.6 - 12.9 [facility] nRBC % Auto 0.0 % [facility] LABORATORY nRBC Abs Auto 0.000 0.000 - [place] RYAN 0.000 [facility] x10(3)/[facility] LABORATORY Specimen Anatomical Collection Method Collection Time Receive d Time (Source) Location / / Volume Laterality Blood specimen 08/14/2017 4:52 AM 018 5:08 (specimen) EST AM EST Resulting Agency Comment Spec In Lab Yonathan Smith MD HEMATOLOGY ORDERABLES Performing Organization Address City/State/[place] [address] (ABNORMAL) Prothrombin Time (08/14/2017 [...] Organization Address City/State/[place] [address] (ABNORMAL) Basic Metabolic Panel (non-fasting) (08/14/2017 4:52 AM EST) athologist Signature Glucose Lvl 135 65 - 199 [facility] mg/dL [facility] LABORATORY Comment: Diabetes: >=200 mg/dL plus symp toms BUN 25 (H) 10 - 20 mg/dL [facility] LABORATORY Creatinine 1.36 0.80 - [...] CENTER LABORATORY Estimated GFR 52 (L) >=60 [facility] LABORATORY Comment: The reported eGFR should be multiplied b y 1.2 for patients. The MDRD is not an appropriate measure o f renal function for patients with body mass extremes or in patients with acute kidney failure. http://Stylehive/DHnkdep http://Stylehive/DHMCnkf Specimen Anatomical Collection Method Collection Time Receive d Time (Source) Location / / Volume Laterality Blood specimen 08/14/2017 4:52 AM 018 5:08 (specimen) EST AM EST Resulting Agency Comment Spec In Lab Yonathan Smith MD CHEMISTRY ORDERABLES Performing Organization Address City/[facility]/ZIP [facility] Phon e Number [address] POCT Glucose (08/14/2017 3:56 AM EST) P athologist Signature POC Glucose 135 65 - 199 [facility] mg/dL [facility] LABORATORY Comment: Supplemental ranges: <140 mg/dL [...] [facility]/ZIP Code Phon e Number [address] POCT Glucose (08/13/2017 11:13 PM EST) athologist Signature POC Glucose 118 65 - 199 [facility] mg/dL [facility] LABORATORY Comment: Supplemental ranges: <140 mg/dL before meals <180 mg/dL all other times of the day Specimen Anatomical Collection Method Collection Time Receive d Time (Source) Location / / Volume Laterality Blood specimen 08/13/2017 11:13 8 (specimen) PM EST 11:13 PM EST Yonathan Smith MD POINT OF CARE TEST ORDERABLE S Performing Organization Address City/State/[place] [address] (ABNORMAL) POCT Glucose (08/13/2017 8:08 PM EST) athologist Signature POC Glucose 204 (H) 65 - 199 [place] ZHAORYAN mg/dL [facility] LABORATORY Comment: Supplemental ranges: <140 mg/dL [...] [facility]/[place] [address] POCT Glucose (08/13/2017 4:02 PM EST) athologist Signature POC Glucose 145 65 - 199 [place] ZHAORYAN mg/dL [facility] LABORATORY Comment: Supplemental ranges: <140 mg/dL before meals <180 mg/dL all other times of the day Specimen Anatomical Collection Method Collection Time Receive d Time (Source) Location / / Volume Laterality Blood specimen 08/13/2017 4:02 PM 018 4:02 (specimen) EST PM EST Yonathan Smith MD POINT OF CARE TEST ORDERABLE S Performing Organization Address City/State/[place] [address] POCT Glucose (08/13/2017 11:31 AM EST) athologist Signature POC Glucose 179 65 - 199 [place] ZHAORYAN mg/dL [facility] LABORATORY Comment: Supplemental ranges: <140 mg/dL before meals <180 mg/dL all other times of the day Specimen Anatomical Collection Method Collection Time Receive d Time (Source) Location / / Volume Laterality Blood specimen 08/13/2017 11:31 8 (specimen) AM EST 11:31 AM EST Yonathan Smith MD POINT OF CARE TEST ORDERABLE S Performing Organization Address City/State/[place] [address] (ABNORMAL) POCT Glucose (08/13/2017 10:16 AM EST) P athologist Signature POC Glucose 211 (H) 65 - 199 [place] RYAN mg/dL [facility] LABORATORY Comment: Supplemental ranges: <140 mg/dL before meals <180 mg/dL all other times of the day Specimen Anatomical Collection Method Collection Time Receive d Time (Source) Location / / Volume Laterality Blood specimen 08/13/2017 10:16 8 (specimen) AM EST 10:16 AM EST Yonathan Smith MD POINT OF CARE TEST ORDERABLE S Performing Organization Address City/State/[place] [address] JULIAN, legs, multiple levels (08/13/2017 7:42 AM EST) Component Value Ref Test Analysis Performed At Patholo gist Range Method Time Signature VB Text Department: Vascular Surgery Lab VASCUBASE Report Patient: [id number] (GREGORY HOANG) CPT: 94909 ICD10: I99.8 Referring Physician: YONATHAN SMITH ?? Indications: s/p R 1,2,3 toe amps with red left foot, need n ew baseline Diabetes mellitus: yes ICD10 Diagnosis Code: I99.8 Findings: Right ?Pressure (mm Hg) ?? JULIAN ??Waveform ?TBI ?? Brachial Artery ?138 ? Dorsalis Pedis (Ankle) Arter y ?132 ? 0.94 ??Cedar- Biphasic ? Posterior Tibial (Ankle) Art anila ??154 ? 1.10 ??Cedar-Biphasic ? Fourth Toe ? 67 ? 0.48 [...] Signature POC Glucose 156 65 - 199 [facility] mg/dL [facility] LABORATORY Comment: Supplemental ranges: <140 mg/dL before meals <180 mg/dL all other times of the day Specimen Anatomical Collection Method Collection Time Receive d Time (Source) Location / / Volume Laterality Blood specimen 08/13/2017 7:33 AM 018 7:33 (specimen) EST AM EST Yonathan Smith MD POINT OF CARE TEST ORDERABLE S Performing Organization Address City/State/[place] [address] (ABNORMAL) Differential, Automated (08/13/2017 5:33 AM EST) Patholo gist Method Time Signature Neutrophils % 77.8 % [facility] LABORATORY Neutr Abs (ANC) 7.83 (H) 1.70 - [facility] 6.10 [facility] x10(3)/[facility] L LABORATORY Lymphocytes % 8.4 % [facility] LABORATORY Lymphocytes Abs 0.8 (L) 0.9 - 3.2 [facility] x10(3)/[facility] LABORATORY Monocytes % 8.3 % [facility] LABORATORY Monocyte Abs 0.8 0.3 - 0.9 [facility] x10(3)/[facility] LABORATORY Eosinophils % 4.6 % [facility] LABORATORY Eosinophils Abs 0.5 (H) 0.0 - 0.4 [facility] x10(3)/[facility] LABORATORY Basophils % 0.5 % [facility] LABORATORY Basophils Abs 0.0 0.0 - 0.1 [facility] x10(3)/[facility] LABORATORY Immature Gran % 0.40 % [...] Melisa Gran Abs 0.04 0.00 - 0.04 x10(3)/[facility] LABORATORY Specimen Anatomical Collection Method Collection Time Receive d Time (Source) Location / / Volume Laterality Blood specimen 08/13/2017 5:33 AM 018 6:04 (specimen) EST AM EST Resulting Agency Comment Spec In Lab Yonathan Smith MD HEMATOLOGY ORDERABLES Performing Organization Address City/State/[place] [address] (ABNORMAL) Hemogram (08/13/2017 5:33 AM EST) Analysis Performed At Patho logist Time Signature WBC 10.1 (H) 4.0 - 9.5 [facility] x10(3)/[facility] LABORATORY RBC 3.21 (L) 4.58 - [facility] 5.54 [facility] x10(6)/[facility] LABORATORY Hemoglobin 9.2 (L) 13.7 - [facility] 16.5 gm/dL [facility] LABORATORY Hematocrit 29.6 (L) 40.5 - [facility] 48.5 % [facility] LABORATORY MCV 92.2 82.9 - [facility] 93.1 [facility] LABORATORY MCH 28.7 27.5 - [facility] 32.1 pg [facility] LABORATORY MCHC 31.1 (L) 32.0 - [place] ZHAORYAN 35.7 gm/dL [facility] LABORATORY Platelets 263 145 - 357 [facility] x10(3)/[facility] LABORATORY RDWSD 54.8 (H) 36.0 - BARBARA RYAN 45.0 [facility] LABORATORY RDWCV 16.4 (H) 11.4 - [facility] RYAN 13.8 % [facility] LABORATORY MPV 9.2 7.6 - 12.9 [facility] LABORATORY nRBC % Auto 0.0 % [facility] LABORATORY nRBC Abs Auto 0.000 0.000 - [place] RYAN 0.000 [facility] x10(3)/[facility] LABORATORY Specimen Anatomical Collection Method Collection Time Receive d Time (Source) Location / / Volume Laterality Blood specimen 08/13/2017 5:33 AM 018 6:04 (specimen) EST AM EST Resulting Agency Comment Spec In Lab Yonathan Smith MD HEMATOLOGY ORDERABLES Performing Organization Address City/State/ZIP Code Phon e Number [place] [phone] (ABNORMAL) Prothrombin Time (08/13/2017 [...] [facility]/[place] [address] (ABNORMAL) Basic Metabolic Panel (non-fasting) (08/13/2017 5:33 AM EST) P athologist Signature Glucose Lvl 126 65 - 199 [facility] mg/dL [facility] LABORATORY Comment: Diabetes: >=200 mg/dL plus symp toms BUN 18 10 - 20 mg/dL [facility] LABORATORY Creatinine 1.16 0.80 - [...] 15 mmol/L [facility] Calcium 7.9 (L) 8.5 - 10.5 mg/dL [facility] LABORATORY Estimated GFR >60 >=60 [facility] Comment: The reported eGFR should be multiplied b y 1.2 for patients. The MDRD is not an appropriate measure o f renal function for patients with body mass extremes or in patients with acute kidney failure. http://StudyEgg.Purple Harry/DHnkdep http://StudyEgg.Purple Harry/DHMCnkf Specimen Anatomical Collection Method Collection Time Receive d Time (Source) Location / / Volume Laterality Blood specimen 08/13/2017 5:33 AM 018 6:04 (specimen) EST AM EST Resulting Agency Comment Spec In Lab Yonathan Smith MD CHEMISTRY ORDERABLES Performing Organization Address City/State/[place] [address] POCT Glucose (08/13/2017 4:29 AM EST) athologist Signature POC Glucose 111 65 - 199 [place] mg/dL [facility] Comment: Supplemental ranges: <140 mg/dL [...] [facility]/ZIP Code Phon e Number [address] POCT Glucose (08/12/2017 11:28 PM EST) athologist Signature POC Glucose 164 65 - 199 [place] mg/dL [facility] Comment: Supplemental ranges: <140 mg/dL before meals <180 mg/dL all other times of the day Specimen Anatomical Collection Method Collection Time Receive d Time (Source) Location / / Volume Laterality Blood specimen 08/12/2017 11:28 8 (specimen) PM EST 11:28 PM EST Yonathan Smith MD POINT OF CARE TEST ORDERABLE S Performing Organization Address City/State/[place] [address] (ABNORMAL) POCT Glucose (08/12/2017 7:40 PM EST) athologist Signature POC Glucose 209 (H) 65 - 199 [place] mg/dL [facility] Comment: Supplemental ranges: <140 mg/dL before meals <180 mg/dL all other times of the day Specimen Anatomical Collection Method Collection Time Receive d Time (Source) Location / / Volume Laterality Blood specimen 08/12/2017 7:40 PM 018 7:40 (specimen) EST PM EST Yonathan Smith MD POINT OF CARE TEST ORDERABLE S Performing Organization Address City/State/[place] [address] POCT Glucose (08/12/2017 4:24 PM EST) athologist Signature POC Glucose 161 65 - 199 [place] mg/dL [facility] Comment: Supplemental ranges: <140 mg/dL before meals <180 mg/dL all other times of the day Specimen Anatomical Collection Method Collection Time Receive d Time (Source) Location / / Volume Laterality Blood specimen 08/12/2017 4:24 PM 018 4:24 (specimen) EST PM EST Yonathan Smith MD POINT OF CARE TEST ORDERABLE S Performing Organization Address City/State/ZIP Code Phon e Number [address] POCT Glucose (08/12/2017 12:00 PM EST) athologist Signature POC Glucose 167 65 - 199 [facility] [place] mg/dL [facility] Comment: Supplemental ranges: <140 mg/dL before meals <180 mg/dL all other times of the day Specimen Anatomical Collection Method Collection Time Receive d Time (Source) Location / / Volume Laterality Blood specimen 08/12/2017 12:00 8 (specimen) PM EST 12:00 PM EST Yonathan Smith MD POINT OF CARE TEST ORDERABLE S Performing Organization Address City/State/[place] [address] POCT Glucose (08/12/2017 7:25 AM EST) athologist Signature POC Glucose 152 65 - 199 [place] mg/dL [facility] Comment: Supplemental ranges: <140 mg/dL before meals <180 mg/dL all other times of the day Specimen Anatomical Collection Method Collection Time Receive d Time (Source) Location / / Volume Laterality Blood specimen 08/12/2017 7:25 AM 018 7:25 (specimen) EST AM EST Yonathan Smith MD POINT OF CARE TEST ORDERABLE S Performing Organization Address City/State/[place] [address] (ABNORMAL) Differential, Automated (08/12/2017 6:29 AM EST) Patholo gist Method Time Signature Neutrophils % 78.7 % [facility] LABORATORY Neutr Abs (ANC) 7.94 (H) 1.70 - [facility] 6.10 [facility] x10(3)/[facility] LABORATORY Lymphocytes % 8.8 % [facility] LABORATORY Lymphocytes Abs 0.9 0.9 - 3.2 [facility] x10(3)/[facility] LABORATORY Monocytes % 7.8 % [facility] LABORATORY Monocyte Abs 0.8 0.3 - 0.9 [facility] x10(3)/[facility] LABORATORY Eosinophils % 3.9 % [facility] LABORATORY Eosinophils Abs 0.4 0.0 - 0.4 [facility] x10(3)/[facility] LABORATORY Basophils % 0.3 % [facility] LABORATORY Basophils Abs 0.0 0.0 - 0.1 [facility] x10(3)/[facility] LABORATORY Immature Gran % 0.50 % [...] Gran Abs 0.05 (H) 0.00 - 0.04 x10(3)/[facility] LABORATORY Specimen Anatomical Collection Method Collection Time Receive d Time (Source) Location / / Volume Laterality Blood specimen 08/12/2017 6:29 AM 018 6:38 (specimen) EST AM EST Resulting Agency Comment Spec In Lab Yonathan Smith MD HEMATOLOGY ORDERABLES Performing Organization Address City/State/[place] [address] (ABNORMAL) Hemogram (08/12/2017 6:29 AM EST) Analysis Performed At Patho logist Time Signature WBC 10.1 (H) 4.0 - 9.5 [facility] x10(3)/[facility] LABORATORY RBC 3.02 (L) 4.58 - [facility] R[place] 5.54 [facility] x10(6)/[facility] LABORATORY Hemoglobin 8.7 (L) 13.7 - [facility] 16.[facility] g[facility]/dL [facility] LAB[facility]ORY Hematocrit 28.1 (L) 40.5 - [facility] 48.5 % [facility] LABORATORY MCV 93.0 82.9 - [facility] 93.1 [facility] LABORATORY MCH 28.8 27.5 - [facility] pg [facility] LABORATORY MCHC 31.0 (L) 32.0 - [facility] 35.7 gm/dL [facility] LABORATORY Platelets 223 145 - 357 [facility] x10(3)/[facility] LABORATORY RDWSD 56.1 (H) 36.0 - [facility] 45.0 [facility] LABORATORY RDWCV 16.4 (H) 11.4 - [facility] 13.8 % [facility] LABORATORY MPV 9.0 7.6 - 12.9 [facility] LABORATORY nRBC % Auto 0.0 % [facility] LABORATORY nRBC Abs Auto 0.000 0.000 - [facility] 0.000 [facility] x10(3)/[facility] LABORATORY Specimen Anatomical Collection Method Collection Time Receive d Time (Source) Location / / Volume Laterality Blood specimen 08/12/2017 6:29 AM 018 6:38 (specimen) EST AM EST Resulting Agency Comment Spec In Lab Yonathan Smith MD HEMATOLOGY ORDERABLES Performing Organization Address City/State/[place] [address] (ABNORMAL) Prothrombin Time (08/12/2017 [...] Organization Address City/State/[place] [address] (ABNORMAL) Basic Metabolic Panel (non-fasting) (08/12/2017 6:29 AM EST) P athologist Signature Glucose Lvl 151 65 - 199 [facility] mg/dL [facility] LABORATORY Comment: Diabetes: >=200 mg/dL plus symp toms BUN 18 10 - 20 mg/dL [facility] LABORATORY Creatinine 1.11 0.80 - [...] 15 mmol/L [facility] LABOR[facility]ORY Calcium 7.9 (L) 8.5 - 10.5 mg/dL [facility] LABORATORY Estimated GFR >60 >=60 [facility] LAB[facility]ORY Comment: The reported eGFR should be multiplied b y 1.2 for patients. The MDRD is not an appropriate measure o f renal function for patients with body mass extremes or in patients with acute kidney failure. http://StudyEgg.Purple Harry/DHnkdep http://Stylehive/DHMCnkf Specimen Anatomical Collection Method Collection Time Receive d Time (Source) Location / / Volume Laterality Blood specimen 08/12/2017 6:29 AM 018 6:38 (specimen) EST AM EST Resulting Agency Comment Spec In Lab Yonathan Smith MD CHEMISTRY ORDERABLES Performing Organization Address City/State/ZIP Code Phon e Number [address] POCT Glucose (08/12/2017 4:08 AM EST) athologist Signature POC Glucose 181 65 - 199 [facility] Comment: Supplemental ranges: <140 mg/dL [...] [facility]/[place] [address] (ABNORMAL) POCT Glucose (08/12/2017 12:17 AM EST) athologist Signature POC Glucose 221 (H) 65 - 199 [place] mg/dL [facility] LAB[facility]ORY Comment: Supplemental ranges: <140 mg/dL [...] [facility]/ZIP Code Phon e Number [address] (ABNORMAL) POCT Glucose (08/11/2017 8:52 PM EST) athologist Signature POC Glucose 221 (H) 65 - 199 [place] mg/dL [facility] LABOR[facility]ORY Comment: Supplemental ranges: <140 mg/dL before meals <180 mg/dL all other times of the day Specimen Anatomical Collection Method Collection Time Receive d Time (Source) Location / / Volume Laterality Blood specimen 08/11/2017 8:52 PM 018 8:52 (specimen) EST PM EST Yonathan Smith MD POINT OF CARE TEST ORDERABLE S Performing Organization Address City/State/[place] [address] POCT Glucose (08/11/2017 5:59 PM EST) athologist Signature POC Glucose 169 65 - 199 [place] mg/dL [facility] LABOR[facility]ORY Comment: Supplemental ranges: <140 mg/dL before meals <180 mg/dL all other times of the day Specimen Anatomical Collection Method Collection Time Receive d Time (Source) Location / / Volume Laterality Blood specimen 08/11/2017 5:59 PM 018 5:59 (specimen) EST PM EST Yonathan Smith MD POINT OF CARE TEST ORDERABLE S Performing Organization Address City/State/[place] [address] (ABNORMAL) POCT Glucose (08/11/2017 4:08 PM EST) athologist Signature POC Glucose 240 (H) 65 - 199 [place] mg/dL [facility] LAB[facility]ORY Comment: Supplemental ranges: <140 mg/dL before meals <180 mg/dL all other times of the day Specimen Anatomical Collection Method Collection Time Receive d Time (Source) Location / / Volume Laterality Blood specimen 08/11/2017 4:08 PM 018 4:08 (specimen) EST PM EST Yonathan Smith MD POINT OF CARE TEST ORDERABLE S Performing Organization Address City/State/ZIP Code Phon e Number [address] POCT Glucose (08/11/2017 12:04 PM EST) athologist Signature POC Glucose 182 65 - 199 [place] mg/dL [facility] LAB[facility]ORY Comment: Supplemental ranges: <140 mg/dL before meals <180 mg/dL all other times of the day Specimen Anatomical Collection Method Collection Time Receive d Time (Source) Location / / Volume Laterality Blood specimen 08/11/2017 12:04 8 (specimen) PM EST 12:04 PM EST Yonathan Smith MD POINT OF CARE TEST ORDERABLE S Performing Organization Address City/State/ZIP Code Phon e Number [address] POCT Glucose (08/11/2017 7:31 AM EST) P athologist Signature POC Glucose 156 65 - 199 [facility] mg/dL [facility] LABORATORY Comment: Supplemental ranges: <140 mg/dL before meals <180 mg/dL all other times of the day Specimen Anatomical Collection Method Collection Time Receive d Time (Source) Location / / Volume Laterality Blood specimen 08/11/2017 7:31 AM 018 7:31 (specimen) EST AM EST Yonathan Smith MD POINT OF CARE TEST ORDERABLE S Performing Organization Address City/State/[place] [address] (ABNORMAL) Differential, Automated (08/11/2017 6:16 AM EST) Patholo gist Method Time Signature Neutrophils % 83.7 % [facility] LABORATORY Neutr Abs (ANC) 10.76 (H) 1.70 - [facility] 6.10 [facility] x10(3)/[facility] L LABORATORY Lymphocytes % 6.0 % [facility] LABORATORY Lymphocytes Abs 0.8 (L) 0.9 - 3.2 [facility] x10(3)/[facility] LABORATORY Monocytes % 7.5 % [facility] LABORATORY Monocyte Abs 1.0 (H) 0.3 - 0.9 [facility] x10(3)/[facility] LABORATORY Eosinophils % 2.0 % [facility] LABORATORY Eosinophils Abs 0.3 0.0 - 0.4 [facility] x10(3)/[facility] LABORATORY Basophils % 0.3 % [facility] LABORATORY Basophils Abs 0.0 0.0 - 0.1 [facility] x10(3)/[facility] LABORATORY Immature Gran % 0.50 % [...] 0.00 - 0.04 x10(3)/[facility] LABORATORY Specimen Anatomical Collection Method Collection Time Receive d Time (Source) Location / / Volume Laterality Blood specimen 08/11/2017 6:16 AM 018 6:24 (specimen) EST AM EST Resulting Agency Comment Spec In Lab Yonathan Smith MD HEMATOLOGY ORDERABLES Performing Organization Address City/State/ZIP Code Phon e Number [place] [phone] (ABNORMAL) Hemogram (08/11/2017 6:16 AM EST) Analysis Performed At Patho logist Time Signature WBC 12.9 (H) 4.0 - 9.5 [facility] x10(3)/[facility] LABORATORY RBC 3.28 (L) 4.58 - [facility] 5.54 [facility] x10(6)/[facility] LABORATORY Hemoglobin 9.5 (L) 13.7 - [facility] 16.5 gm/dL [facility] LABORATORY Hematocrit 29.8 (L) 40.5 - [facility] 48.5 % [facility] LABORATORY MCV 90.9 82.9 - [facility] 93.1 [facility] LABORATORY MCH 29.0 27.5 - [facility] 32.1 pg [facility] LABORATORY MCHC 31.9 (L) 32.0 - [facility] 35.7 gm/dL [facility] LABORATORY Platelets 236 145 - 357 [facility] x10(3)/[facility] LABORATORY RDWSD 53.5 (H) 36.0 - [facility] 45.0 [facility] LABORATORY RDWCV 16.3 (H) 11.4 - [facility] 13.8 % [facility] LABORATORY MPV 8.8 7.6 - 12.9 [facility] fL [facility] LABORATORY nRBC % Auto 0.0 % [facility] LABORATORY nRBC Abs Auto 0.000 0.000 - [place] 0.000 [facility] x10(3)/[facility] LABORATORY Specimen Anatomical Collection Method Collection Time Receive d Time (Source) Location / / Volume Laterality Blood specimen 08/11/2017 6:16 AM 018 6:24 (specimen) EST AM EST Resulting Agency Comment Spec In Lab Yonathan Smith MD HEMATOLOGY ORDERABLES Performing Organization Address City/State/ZIP Code Phon e Number [address] (ABNORMAL) Prothrombin Time (08/11/2017 [...] Organization Address City/State/[place] [address] Basic Metabolic Panel (non-fasting) (08/11/2017 6:16 AM EST) P athologist Signature Glucose Lvl 139 65 - 199 [facility] mg/dL [facility] LABORATORY Comment: Diabetes: >=200 mg/dL plus symp toms BUN 12 10 - 20 mg/dL [facility] LABORATORY Creatinine 0.91 0.80 - [...] or in patients with acute kidney failure. http://StudyEgg.Purple Harry/DHnkdep http://Stylehive/DHMCnkf Specimen Anatomical Collection Method Collection Time Receive d Time (Source) Location / / Volume Laterality Blood specimen 08/11/2017 6:16 AM 018 6:24 (specimen) EST AM EST Resulting Agency Comment Spec In Lab Yonathan Smith MD CHEMISTRY ORDERABLES Performing Organization Address City/State/[place] [address] POCT Glucose (08/11/2017 4:07 AM EST) athologist Signature POC Glucose 162 65 - 199 [facility] mg/dL [facility] LABORATORY Comment: Supplemental ranges: <140 mg/dL before meals <180 mg/dL all other times of the day Specimen Anatomical Collection Method Collection Time Receive d Time (Source) Location / / Volume Laterality Blood specimen 08/11/2017 4:07 AM 018 4:07 (specimen) EST AM EST Yonathan Smith MD POINT OF CARE TEST ORDERABLE S Performing Organization Address City/State/ZIP Code Phon e Number [address] POCT Glucose (08/10/2017 11:59 PM EST) athologist Signature POC Glucose 166 65 - 199 [place] mg/dL [facility] LAB[facility]ORY Comment: Supplemental ranges: <140 mg/dL [...] [facility]/ZIP Code Phon e Number [address] POCT Glucose (08/10/2017 8:12 PM EST) athologist Signature POC Glucose 156 65 - 199 [place] mg/dL [facility] LABORATORY Comment: Supplemental ranges: <140 mg/dL before meals <180 mg/dL all other times of the day Specimen Anatomical Collection Method Collection Time Receive d Time (Source) Location / / Volume Laterality Blood specimen 08/10/2017 8:12 PM 018 8:12 (specimen) EST PM EST Yonathan Smith MD POINT OF CARE TEST ORDERABLE S Performing Organization Address City/State/[place] [address] (ABNORMAL) POCT Glucose (08/10/2017 4:42 PM EST) athologist Signature POC Glucose 211 (H) 65 - 199 [place] mg/dL [facility] LAB[facility]ORY Comment: Supplemental ranges: <140 mg/dL before meals <180 mg/dL all other times of the day Specimen Anatomical Collection Method Collection Time Receive d Time (Source) Location / / Volume Laterality Blood specimen 08/10/2017 4:42 PM 018 4:42 (specimen) EST PM EST Yonathan Smith MD POINT OF CARE TEST ORDERABLE S Performing Organization Address City/State/[place] [address] (ABNORMAL) Differential, Automated (08/10/2017 2:30 PM EST) [facility] Method Time Signature Neutrophils % 87.6 % [facility] LABORATORY Neutr Abs (ANC) 9.90 (H) 1.70 - [facility] 6.10 [facility] x10(3)/[facility] L LABORATORY Lymphocytes % 4.3 % [facility] LABORATORY Lymphocytes Abs 0.5 (L) 0.9 - 3.2 [facility] x10(3)/[facility] LABORATORY Monocytes % 6.0 % [facility] LABORATORY Monocyte Abs 0.7 0.3 - 0.9 [facility] x10(3)/[facility] LABORATORY Eosinophils % 1.1 % [facility] LABORATORY Eosinophils Abs 0.1 0.0 - 0.4 [facility] x10(3)/[facility] LABORATORY Basophils % 0.4 % [facility] LABORATORY Basophils Abs 0.0 0.0 - 0.1 [facility] x10(3)/[facility] LABORATORY Immature Gran % 0.60 % [...] Gran Abs 0.07 (H) 0.00 - 0.04 x10(3)/[facility] LABORATORY Specimen Anatomical Collection Method Collection Time Receive d Time (Source) Location / / Volume Laterality Blood specimen 08/10/2017 2:30 PM 018 2:48 (specimen) EST PM EST Resulting Agency Comment Spec In Lab Yonathan Smith MD HEMATOLOGY ORDERABLES Performing Organization Address City/State/ZIP Code Phon [place] [address] (ABNORMAL) Hemogram (08/10/2017 2:30 PM EST) Analysis Performed At Patho logist Time Signature WBC 11.3 (H) 4.0 - 9.5 [facility] x[facility](3[facility] LABORATORY RBC 3.13 (L) 4.58 - [place] 5.54 [facility] x10(6)/[facility] LABORATORY Hemoglobin 8.9 (L) 13.7 - [facility] 16.5 gm/dL [facility] LABORATORY Hematocrit 28.4 (L) 40.5 - [facility] 48.5 % [facility] LABORATORY MCV 90.7 82.9 - [facility] 93.1 [facility] LABORATORY MCH 28.4 27.5 - [facility] 32.1 pg [facility] LABORATORY MCHC 31.3 (L) 32.0 - [facility] 35.7 gm/dL [facility] LABORATORY Platelets 213 145 - 357 [facility] x10(3)/[facility] LABORATORY RDWSD 53.7 (H) 36.0 - [facility] 45.0 [facility] LABORATORY RDWCV 16.4 (H) 11.4 - [facility] 13.8 % [facility] LABORATORY MPV 8.9 7.6 - 12.9 [facility] LABORATORY nRBC % Auto 0.0 % [facility] LABORATORY nRBC Abs Auto 0.000 0.000 - [facility] 0.000 [facility] x10(3)/[facility] LABORATORY Specimen Anatomical Collection Method Collection Time Receive d Time (Source) Location / / Volume Laterality Blood specimen 08/10/2017 2:30 PM 018 2:48 (specimen) EST PM EST Resulting Agency Comment Spec In Lab Yonathan Smith MD HEMATOLOGY ORDERABLES Performing Organization Address City/State/[place] [address] (ABNORMAL) POCT Glucose (08/10/2017 1:50 PM EST) P athologist Signature POC Glucose 243 (H) 65 - 199 [facility] mg/dL [facility] LABORATORY Comment: Supplemental ranges: <140 mg/dL before meals <180 mg/dL all other times of the day Specimen Anatomical Collection Method Collection Time Receive d Time (Source) Location / / Volume Laterality Blood specimen 08/10/2017 1:50 PM 018 1:50 (specimen) EST PM EST Yonathan Smith MD POINT OF CARE TEST ORDERABLE S Performing Organization Address City/State/[place] [address] POCT Glucose (08/10/2017 11:21 AM EST) P athologist Signature POC Glucose 156 65 - 199 [facility] mg/dL [facility] LABORATORY Comment: Supplemental ranges: <140 mg/dL before meals <180 mg/dL all other times of the day Specimen Anatomical Collection Method Collection Time Receive d Time (Source) Location / / Volume Laterality Blood specimen 08/10/2017 11:21 8 (specimen) AM EST 11:21 AM EST Yonathan Smith MD POINT OF CARE TEST ORDERABLE S Performing Organization Address City/State/[place] [address] (ABNORMAL) Differential, Automated (08/10/2017 10:28 AM EST) Patholo gist Method Time Signature Neutrophils % 85.3 % [facility] LABORATORY Neutr Abs (ANC) 9.43 (H) 1.70 - [facility] 6.10 [facility] x10(3)/[facility] L LABORATORY Lymphocytes % 5.5 % [facility] LABORATORY Lymphocytes Abs 0.6 (L) 0.9 - 3.2 [facility] x10(3)/[facility] LABORATORY Monocytes % 5.9 % [facility] LABORATORY Monocyte Abs 0.6 0.3 - 0.9 [facility] x10(3)/[facility] LABORATORY Eosinophils % 2.1 % [facility] LABORATORY Eosinophils Abs 0.2 0.0 - 0.4 [facility] x10(3)/[facility] LABORATORY Basophils % 0.4 % [facility] LABORATORY Basophils Abs 0.0 0.0 - 0.1 [facility] x10(3)/[facility] LABORATORY Immature Gran % 0.80 % [...] Gran Abs 0.09 (H) 0.00 - 0.04 x10(3)/[facility] LABORATORY Specimen Anatomical Collection Method Collection Time Receive d Time (Source) Location / / Volume Laterality Blood specimen 08/10/2017 10:28 8 (specimen) AM EST 10:35 AM EST Resulting Agency Comment Spec In Lab Yonathan Smith MD HEMATOLOGY ORDERABLES Performing Organization Address City/State/[place] [address] (ABNORMAL) Hemogram (08/10/2017 10:28 AM EST) Analysis Performed At Patho logist Time Signature WBC 11.0 (H) 4.0 - 9.5 [facility] x10(3)/[facility] LABORATORY RBC 3.02 (L) 4.58 - [facility] x10(6)/[facility] LABORATORY Hemoglobin 8.8 (L) 13.7 - [facility] 16.5 gm/dL [facility] LABORATORY Hematocrit 28.1 (L) 40.5 - [facility] 48.5 % [facility] LABORATORY MCV 93.0 82.9 - [facility] 93.1 [facility] LABORATORY MCH 29.1 27.5 - [facility] 32.1 pg [facility] LABORATORY MCHC 31.3 (L) 32.0 - [facility] 35.7 gm/dL [facility] LABORATORY Platelets 207 145 - 357 [facility] x10(3)/[facility] LABORATORY RDWSD 55.3 (H) 36.0 - [facility] RYAN 45.0 [facility] LABORATORY RDWCV 16.4 (H) 11.4 - [facility] 13.8 % [facility] LABORATORY MPV 9.0 7.6 - 12.9 [facility] LABORATORY nRBC % Auto 0.0 % [facility] LABORATORY nRBC Abs Auto 0.000 0.000 - [facility] DAVIS 0.000 [facility] x10(3)/[facility] LABORATORY Specimen Anatomical Collection Method Collection Time Receive d Time (Source) Location / / Volume Laterality Blood specimen 08/10/2017 10:28 8 (specimen) AM EST 10:35 AM EST Resulting Agency Comment Spec In Lab Yonathan Smith MD HEMATOLOGY ORDERABLES Performing Organization Address City/State/ZIP Code Phon e Number [place] [id number] HOSPITAL LAB[address]ATORY [address] VS Angiogram/intervention (vascular) (08/10/2017 [...] 2.5x80 5. Completion RLE angiogram 6. L COATER HELPER angiogram 7. 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 L COATER HELPER access in the distal L COATER HELPER. - Closure device: Mynx Technical Procedure: [...] for a 45cm 5F Destination. V18 and [place] a nd QuickCross catheters were used to [...] bifurcation. Access appeared in the distal R COATER HELPER. Closure and sheath removal was performed [...] 2.5x80 5. Completion RLE angiogram 6. L COATER HELPER angiogram 7. 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 L COATER HELPER access in the distal L COATER HELPER. - Closure device: Mynx Technical Procedure: [...] for a 45cm 5F Destination. V18 and [place] a nd QuickCross catheters were used to [...] bifurcation. Access appeared in the distal R COATER HELPER. Closure and sheath removal was performed [...] Differential, Automated (08/10/2017 5:50 AM EST) [facility] Method Time Signature Neutrophils % 80.1 % [facility] LABORATORY Neutr Abs (ANC) 9.01 (H) 1.70 - [facility] 6.10 [facility] x10(3)/[facility] LABORATORY Lymphocytes % 8.8 % [facility] LABORATORY Lymphocytes Abs 1.0 0.9 - 3.2 [facility] x10(3)/[facility] LABORATORY Monocytes % 8.3 % [facility] LABORATORY Monocyte Abs 0.9 0.3 - 0.9 [facility] x10(3)/[facility] LABORATORY Eosinophils % 2.0 % [facility] LABORATORY Eosinophils Abs 0.2 0.0 - 0.4 [facility] x10(3)/[facility] LABORATORY Basophils % 0.4 % [facility] LABORATORY Basophils Abs 0.0 0.0 - 0.1 [facility] x10(3)/[facility] LABORATORY Immature Gran % 0.40 % [...] Gran Abs 0.05 (H) 0.00 - 0.04 x10(3)/[facility] LABORATORY Specimen Anatomical Collection Method Collection Time Receive d Time (Source) Location / / Volume Laterality Blood specimen 08/10/2017 5:50 AM 018 5:59 (specimen) EST AM EST Resulting Agency Comment Spec In Lab Yonathan Smith MD HEMATOLOGY ORDERABLES Performing Organization Address City/State/[place] [address] (ABNORMAL) Hemogram (08/10/2017 5:50 AM EST) Analysis Performed At Patho logist Time Signature WBC 11.3 (H) 4.0 - 9.5 [facility] x10(3)/[facility] LABORATORY RBC 3.15 (L) 4.58 - [facility] 5.54 [facility] x10(6)/[facility] LABORATORY Hemoglobin 8.9 (L) 13.7 - [facility] 16.5 gm/dL [facility] LABORATORY Hematocrit 29.0 (L) 40.5 - [facility] 48.5 % [facility] LABORATORY MCV 92.1 82.9 - [facility] 93.1 [facility] LABORATORY MCH 28.3 27.5 - [place] RYAN 32.1 pg [facility] LABORATORY MCHC 30.7 (L) 32.0 - [facility] RYAN 35.7 gm/dL [facility] LABORATORY Platelets 231 145 - 357 [facility] x10(3)/[facility] LABORATORY RDWSD 53.9 (H) 36.0 - [facility] RYAN 45.0 [facility] LABORATORY RDWCV 16.2 (H) 11.4 - [facility] RYAN 13.8 % [facility] LABORATORY MPV 8.7 7.6 - 12.9 [facility] nRBC % Auto 0.0 % [facility] LABORATORY nRBC Abs Auto 0.000 0.000 - [facility] RYAN 0.000 [facility] x10(3)/[facility] LABORATORY Specimen Anatomical Collection Method Collection Time Receive d Time (Source) Location / / Volume Laterality Blood specimen 08/10/2017 5:50 AM 018 5:59 (specimen) EST AM EST Resulting Agency Comment Spec In Lab Yonathan Smith MD HEMATOLOGY ORDERABLES Performing Organization Address City/State/[place] [address] (ABNORMAL) Basic Metabolic Panel (non-fasting) (08/10/2017 5:50 AM EST) P athologist Signature Glucose Lvl 135 65 - 199 [facility] mg/dL [facility] LABORATORY [...] or in patients with acute kidney failure. http://StudyEgg.Purple Harry/DHnkdep http://StudyEgg.Purple Harry/DHMCnkf Specimen Anatomical Collection Method Collection Time Receive d Time (Source) Location / / Volume Laterality Blood specimen 08/10/2017 5:50 AM 018 5:59 (specimen) EST AM EST Resulting Agency Comment Spec In Lab Yonathan Smith MD CHEMISTRY ORDERABLES Performing Organization Address City/State/ZIP Code Phon e Number [address] (ABNORMAL) Prothrombin Time (08/10/2017 [...] Organization Address City/State/[place] [address] (ABNORMAL) POCT Glucose (08/10/2017 4:01 AM EST) athologist Signature POC Glucose 206 (H) 65 - 199 [facility] mg/dL [facility] LABORATORY Comment: Supplemental ranges: <140 mg/dL before meals <180 mg/dL all other times of the day Specimen Anatomical Collection Method Collection Time Receive d Time (Source) Location / / Volume Laterality Blood specimen 08/10/2017 4:01 AM 018 4:01 (specimen) EST AM EST Yonathan Smith MD POINT OF CARE TEST ORDERABLE S Performing Organization Address City/State/[place] [address] POCT Glucose (08/10/2017 2:01 AM EST) athologist Signature POC Glucose 188 65 - 199 [facility] mg/dL [facility] LABORATORY Comment: Supplemental ranges: <140 mg/dL before meals <180 mg/dL all other times of the day Specimen Anatomical Collection Method Collection Time Receive d Time (Source) Location / / Volume Laterality Blood specimen 08/10/2017 2:01 AM 018 2:01 (specimen) EST AM EST Yonathan Smith MD POINT OF CARE TEST ORDERABLE S Performing Organization Address City/State/[place] [address] (ABNORMAL) POCT Glucose (08/09/2017 11:42 PM EST) athologist Signature POC Glucose 283 (H) 65 - 199 [facility] RYAN mg/dL [facility] LABORATORY Comment: Supplemental ranges: <140 mg/dL [...] [facility]/[place] [address] POCT Glucose (08/09/2017 8:55 PM EST) athologist Signature POC Glucose 182 65 - 199 [facility] RYAN mg/dL [facility] LABORATORY Comment: Supplemental ranges: <140 mg/dL before meals <180 mg/dL all other times of the day Specimen Anatomical Collection Method Collection Time Receive d Time (Source) Location / / Volume Laterality Blood specimen 08/09/2017 8:55 PM 018 8:55 (specimen) EST PM EST Yonathan Smith MD POINT OF CARE TEST ORDERABLE S Performing Organization Address City/State/[place] [address] (ABNORMAL) APTT (08/09/2017 6:42 [...] Address City/State/ZIP Code Phon e Number [address] POCT Glucose (08/09/2017 4:41 PM EST) athologist Signature POC Glucose 195 65 - 199 [facility] RYAN mg/dL [facility] LABORATORY Comment: Supplemental ranges: <140 mg/dL [...] [facility]/ZIP Code Phon e Number [address] POCT Glucose (08/09/2017 12:29 PM EST) athologist Signature POC Glucose 140 65 - 199 [place] [place] mg/dL [facility] LABORATORY Comment: Supplemental ranges: <140 mg/dL before meals <180 mg/dL all other times of the day Specimen Anatomical Collection Method Collection Time Receive d Time (Source) Location / / Volume Laterality Blood specimen 08/09/2017 12:29 8 (specimen) PM EST 12:29 PM EST Yonathan Smith MD POINT OF CARE TEST ORDERABLE S Performing Organization Address City/State/ZIP Code Phon e Number [address] POCT Glucose (08/09/2017 9:59 AM EST) athologist Signature POC Glucose 135 65 - 199 [facility] RYAN mg/dL [facility] LABORATORY Comment: Supplemental ranges: <140 mg/dL [...] [facility]/[place] [address] Specimen to Pathology (08/09/2017 [...] [facility]/[place] [address] Surgical Pathology Report (08/09/2017 8:40 AM EST) Component Value Ref Test Analysis Performed At [facility] gist Range Method Time Signature Surgical [id number] ? Location: [facility]; [facility]; A [facility] Report The signing pathologist has (i) examined the relevant preparation(s) for the [facility] specimen(s) and (ii) rendered or confirmed the diagnosis(es) . HOSPITAL LABORATORY . 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 ?Viable proximal resection margins. Electronically signed by: ??Henrique Saravia MD Verified: ??08/13/2017 ?Pathologist Performed at: ??-[facility] Dept. of Pathology, [place], [place] CLINICAL INFORMATION Specimen Submitted: A - [...] [facility]/[place] [address] Anaerobic Culture (08/09/2017 8:30 AM EST) [facility] gist Method Time Signature Anaerobic No anaerobic [facility] Culture organisms [facility] LABORATORY Specimen Anatomical Collection Method [...] Organization Address City/State/[place] [address] (ABNORMAL) Abscess/Wound Aspirate Culture (08/09/2017 8:30 AM EST) Patholo gist Method Time Signature Abscess/Wound Moderate mixed [place] Aspirate bacterial [place] Culture morphotypes [facility] normal LABORATORY cutaneous leroy (A) Gram Stain Rare White Blood Cells [place] Few Gram Positive Cocci in pairs [place] (A) [facility] LABORATORY Organism Gram Positive [place] Cocci in pairs [place] (A) [facility] LABORATORY Specimen Anatomical Collection Method Collection [...] Address City/State/ZIP Code Phon e Number [address] POCT Glucose (08/09/2017 4:28 AM EST) P athologist Signature POC Glucose 128 65 - 199 [facility] mg/dL [facility] LABORATORY Comment: Supplemental ranges: <140 mg/dL [...] [facility]/[place] [address] ABORH Recheck Status (08/09/2017 1:10 AM EST) [facility] gist Method Time Signature ABORH Type Completed [facility] LABORATORY Specimen Anatomical Collection Method Collection Time Receive d Time (Source) Location / / Volume Laterality Blood specimen 08/09/2017 1:10 AM 018 1:35 (specimen) EST AM EST Resulting Agency Comment Spec In Lab Yonathan Smith MD BLOOD BANK ORDERABLES Performing Organization Address City/[facility]/[place] [address] Antibody screen (08/09/2017 1:10 AM EST) Patholo gist Method Time Signature Ab Screen Negative [facility] LABORATORY Expires at 08/12/2017 BARBARA ZHAORYAN [id number] on: [facility] LABORATORY Specimen Anatomical Collection Method Collection Time Receive d Time (Source) Location / / Volume Laterality Blood specimen 08/09/2017 1:10 AM 018 1:35 (specimen) EST AM EST Resulting Agency Comment Spec In Lab Yonathan Smith MD BLOOD BANK ORDERABLES Performing Organization Address City/[facility]/ZIP Code Phon e Number [address] ABO/Rh Typing (08/09/2017 1:10 [...] [facility]/[place] [address] (ABNORMAL) APTT (08/09/2017 1:10 [...] [facility]/[place] [address] (ABNORMAL) Differential, Automated (08/09/2017 1:10 AM EST) [facility] Method Time Signature Neutrophils % 76.2 % [facility] LABORATORY Neutr Abs (ANC) 8.59 (H) 1.70 - [facility] 6.10 [facility] x10(3)/[facility] LABORATORY Lymphocytes % 11.0 % [facility] LABORATORY Lymphocytes Abs 1.2 0.9 - 3.2 [facility] x10(3)/[facility] LABORATORY Monocytes % 8.4 % [facility] LABORATORY Monocyte Abs 1.0 (H) 0.3 - 0.9 [facility] x10(3)/[facility] LABORATORY Eosinophils % 3.5 % [facility] LABORATORY Eosinophils Abs 0.4 0.0 - 0.4 [facility] x10(3)/[facility] LABORATORY Basophils % 0.5 % [facility] LABORATORY Basophils Abs 0.1 0.0 - 0.1 [facility] x10(3)/[facility] LABORATORY Immature Gran % 0.40 % [...] Gran Abs 0.05 (H) 0.00 - 0.04 x10(3)/[facility] LABORATORY Specimen Anatomical Collection Method Collection Time Receive d Time (Source) Location / / Volume Laterality Blood specimen 08/09/2017 1:10 AM 018 1:19 (specimen) EST AM EST Resulting Agency Comment Spec In Lab Yonathan Smith MD HEMATOLOGY ORDERABLES Performing Organization Address City/State/[place] [address] [facility] [address] (ABNORMAL) Hemogram (08/09/2017 1:10 AM EST) Analysis Performed At Patho logist Time Signature WBC 11.3 (H) 4.0 - 9.5 [facility] x10(3)/[facility] LABORATORY RBC 3.47 (L) 4.58 - [facility] 5.54 [facility] x10(6)/[facility] LABORATORY Hemoglobin 10.0 (L) 13.7 - [facility] 16[facility] gm/dL [facility] LABORATORY Hematocrit 31.9 (L) 40.5 - [facility] 48.5 % [facility] LABORATORY MCV 91.9 82.9 - [facility] 93.1 [facility] LABORATORY MCH 28.8 27.5 - [facility] 32.1 pg [facility] LABORATORY MCHC 31.3 (L) 32.0 - [facility] 35.7 gm/dL [facility] LABORATORY Platelets 234 145 - 357 [facility] x10(3)/[facility] LABORATORY RDWSD 54.0 (H) 36.0 - [facility] 45.0 [facility] LABORATORY RDWCV 16.2 (H) 11.4 - [facility] 13.8 % [facility] LABORATORY MPV 8.7 7.6 - 12.9 [facility] LABORATORY nRBC % Auto 0.0 % [facility] LABORATORY nRBC Abs Auto 0.000 0.000 - [facility] 0.000 [facility] x10(3)/[facility] LABORATORY Specimen Anatomical Collection Method Collection Time Receive d Time (Source) Location / / Volume Laterality Blood specimen 08/09/2017 1:10 AM 018 1:19 (specimen) EST AM EST Resulting Agency Comment Spec In Lab Yonathan Smith MD HEMATOLOGY ORDERABLES Performing Organization Address City/State/[place] [address] (ABNORMAL) Prothrombin Time (08/09/2017 [...] City/State/ZIP Code Phon e Number [place] [id number] (ABNORMAL) Basic Metabolic Panel (non-fasting) (08/09/2017 1:10 AM EST) P athologist Signature Glucose Lvl 108 65 - 199 [facility] mg/dL [facility] LABORATORY Comment: Diabetes: >=200 mg/dL plus symp toms BUN 34 (H) 10 - 20 mg/dL [facility] LABORATORY Creatinine 1.54 (H) 0.80 [...] 15 mmol/L [facility] LABORATORY Calcium 8.3 (L) 8.5 - 10.5 mg/dL [facility] LABORATORY Estimated GFR 45 (L) >=60 [facility] LABORATORY Comment: The reported eGFR should be multiplied b y 1.2 for patients. The MDRD is not an appropriate measure o f renal function for patients with body mass extremes or in patients with acute kidney failure. http://Stylehive/DHnkdep http://Stylehive/DHMCnkf Specimen Anatomical Collection Method Collection Time Receive d Time (Source) Location / / Volume Laterality Blood specimen 08/09/2017 1:10 AM 018 1:19 (specimen) EST AM EST Resulting Agency Comment Spec In Lab Yonathan Smith MD CHEMISTRY ORDERABLES Performing Organization Address City/State/ZIP Code Phon e Number [address] POCT Glucose (08/09/2017 12:05 AM EST) athologist Signature POC Glucose 128 65 - 199 [facility] mg/dL [facility] LABORATORY Comment: Supplemental ranges: <140 mg/dL [...] [facility] [address] (ABNORMAL) POCT Glucose (08/08/2017 7:36 PM EST) athologist Signature POC Glucose 215 (H) 65 - 199 [facility] mg/dL [facility] LABORATORY Comment: Supplemental ranges: <140 mg/dL [...] [facility]/[place] [address] (ABNORMAL) POCT Glucose (08/08/2017 6:23 PM EST) athologist Signature POC Glucose 216 (H) 65 - 199 [facility] mg/dL [facility] LABORATORY Comment: Supplemental ranges: <140 mg/dL [...] [facility]/[place] [address] (ABNORMAL) APTT (08/08/2017 6:00 [...] [facility]/[place] [address] POCT Glucose (08/08/2017 4:42 PM EST) athologist Signature POC Glucose 78 65 - 199 [facility] mg/dL [facility] LABORATORY Comment: Supplemental ranges: <140 mg/dL before meals <180 mg/dL all other times of the day Specimen Anatomical Collection Method Collection Time Receive d Time (Source) Location / / Volume Laterality Blood specimen 08/08/2017 4:42 PM 018 4:42 (specimen) EST PM EST Yonathan Smith MD POINT OF CARE TEST ORDERABLE S Performing Organization Address City/State/[place] [address] (ABNORMAL) POCT Glucose (08/08/2017 4:01 PM EST) athologist Signature POC Glucose 58 (L) 65 - 199 [facility] mg/dL [facility] LABORATORY Comment: Supplemental ranges: <140 mg/dL before meals <180 mg/dL all other times of the day Specimen Anatomical Collection Method Collection Time Receive d Time (Source) Location / / Volume Laterality Blood specimen 08/08/2017 4:01 PM 018 4:01 (specimen) EST PM EST Yonathan Smith MD POINT OF CARE TEST ORDERABLE S Performing Organization Address City/State/[place] [address] POCT Glucose (08/08/2017 11:51 AM EST) athologist Signature POC Glucose 90 65 - 199 [facility] mg/dL [facility] LABORATORY Comment: Supplemental ranges: <140 mg/dL before meals <180 mg/dL all other times of the day Specimen Anatomical Collection Method Collection Time Receive d Time (Source) Location / / Volume Laterality Blood specimen 08/08/2017 11:51 8 (specimen) AM EST 11:51 AM EST Yonathan Smith MD POINT OF CARE TEST ORDERABLE S Performing Organization Address City/State/[place] [address] (ABNORMAL) APTT (08/08/2017 10:27 [...] Address City/State/ZIP Code Phon e Number [address] POCT Glucose (08/08/2017 8:02 AM EST) athologist Signature POC Glucose 178 65 - 199 [facility] mg/dL [facility] LABORATORY Comment: Supplemental ranges: <140 mg/dL before meals <180 mg/dL all other times of the day Specimen Anatomical Collection Method Collection Time Receive d Time (Source) Location / / Volume Laterality Blood specimen 08/08/2017 8:02 AM 018 8:02 (specimen) EST AM EST Yonathan Smith MD POINT OF CARE TEST ORDERABLE S Performing Organization Address [facility] Phon e Number [address] (ABNORMAL) APTT (08/08/2017 4:51 AM EST) athologist Signature PTT >160 25 - 35 [facility] (Critical) [facility] LABORATORY Comment: Called by: HOWARD, Read [...] [facility]/ZIP Code Phon e Number [address] (ABNORMAL) Differential, Automated (08/08/2017 4:51 AM EST) Patholo gist Method Time Signature Neutrophils % 77.9 % [facility] LABORATORY Neutr Abs (ANC) 8.17 (H) 1.70 - [facility] 6.10 [facility] x10(3)/[facility] LABORATORY Lymphocytes % 10.3 % [facility] LABORATORY Lymphocytes Abs 1.1 0.9 - 3.2 [facility] x10(3)/[facility] [facility] LABORATORY Monocytes % 7.0 % [facility] LABORATORY Monocyte Abs 0.7 0.3 - 0.9 [facility] x10(3)/[facility] LABORATORY Eosinophils % 3.6 % [facility] LABORATORY Eosinophils Abs 0.4 0.0 - 0.4 [facility] x10(3)/[facility] LABORATORY Basophils % 0.5 % [facility] LABORATORY Basophils Abs 0.0 0.0 - 0.1 [facility] x10(3)/[facility] LABORATORY Immature Gran % 0.70 % [...] Gran Abs 0.07 (H) 0.00 - 0.04 x10(3)/[facility] LABORATORY Specimen Anatomical Collection Method Collection Time Receive d Time (Source) Location / / Volume Laterality Blood specimen 08/08/2017 4:51 AM 018 5:14 (specimen) EST AM EST Resulting Agency Comment Spec In Lab Yonathan Smith MD HEMATOLOGY ORDERABLES Performing Organization Address City/State/[place] [address] (ABNORMAL) Hemogram (08/08/2017 4:51 AM EST) Analysis Performed At Patho logist Time Signature WBC 10.5 (H) 4.0 - 9.5 [facility] x10(3)/[facility] LABORATORY RBC 3.27 (L) 4.58 - [facility] 5.54 [facility] x10(6)/[facility] LABORATORY Hemoglobin 9.3 (L) 13.7 - [facility] 16.5 gm/dL [facility] LABORATORY Hematocrit 30.3 (L) 40.5 - [facility] 48.5 % [facility] LABORATORY MCV 92.7 82.9 - [facility] 93.1 [facility] LABORATORY MCH 28.4 27.5 - [facility] 32.1 pg [facility] LABORATORY MCHC 30.7 (L) 32.0 - [facility] 35.7 gm/dL [facility] LABORATORY Platelets 252 145 - 357 [facility] x10(3)/[facility] LABORATORY RDWSD 54.6 (H) 36.0 - [facility] 45.0 [facility] LABORATORY RDWCV 16.2 (H) 11.4 - [facility] 13.8 % [facility] LABORATORY MPV 9.1 7.6 - 12.9 [facility] LABORATORY nRBC % Auto 0.0 % [facility] LABORATORY nRBC Abs Auto 0.000 0.000 - [facility] 0.000 [facility] x10(3)/[facility] LABORATORY Specimen Anatomical Collection Method Collection Time Receive d Time (Source) Location / / Volume Laterality Blood specimen 08/08/2017 4:51 AM 018 5:14 (specimen) EST AM EST Resulting Agency Comment Spec In Lab Yonathan Smith MD HEMATOLOGY ORDERABLES Performing Organization Address City/State/[place] [address] (ABNORMAL) Prothrombin Time (08/08/2017 [...] Organization Address City/State/[place] [address] (ABNORMAL) Basic Metabolic Panel (non-fasting) (08/08/2017 4:51 AM EST) athologist Signature Glucose Lvl 229 (H) 65 - 199 [facility] mg/dL [facility] LABORATORY Comment: Diabetes: >=200 mg/dL plus symp toms BUN 35 (H) 10 - 20 mg/dL [facility] LABORATORY Creatinine 1.57 (H) 0.80 [...] 15 mmol/L [facility] LABORATORY Calcium 7.9 (L) 8.5 - 10.5 mg/dL [facility] LABORATORY Estimated GFR 44 (L) >=60 [facility] LABORATORY Comment: The reported eGFR should be multiplied b y 1.2 for patients. The MDRD is not an appropriate measure o f renal function for patients with body mass extremes or in patients with acute kidney failure. http://StudyEgg.Purple Harry/DHnkdep http://Stylehive/[facility] OKEMAHnk Specimen Anatomical Collection Method Collection Time Receive d Time (Source) Location / / Volume Laterality Blood specimen 08/08/2017 4:51 AM 018 5:14 (specimen) EST AM EST Resulting Agency Comment Spec In Lab Yonathan Smith MD CHEMISTRY ORDERABLES Performing Organization Address City/State/[place] [address] POCT Glucose (08/08/2017 4:20 AM EST) athologist Signature POC Glucose 193 65 - 199 [facility] mg[facility]dL [facility] LABORATORY Comment: Supplemental ranges: <140 mg/dL before meals <180 mg/dL all other times of the day Specimen Anatomical Collection Method Collection Time Receive d Time (Source) Location / / Volume Laterality Blood specimen 08/08/2017 4:20 AM 018 4:20 (specimen) EST AM EST Yonathan Smith MD POINT OF CARE TEST ORDERABLE S Performing Organization Address City/State/[place] [address] POCT Glucose (08/07/2017 11:11 PM EST) athologist Signature POC Glucose 124 65 - 199 [facility] mg/dL [facility] LABORATORY Comment: Supplemental ranges: <140 mg/dL before meals <180 mg/dL all other times of the day Specimen Anatomical Collection Method Collection Time Receive d Time (Source) Location / / Volume Laterality Blood specimen 08/07/2017 11:11 8 (specimen) PM EST 11:11 PM EST Yonathan Smith MD POINT OF CARE TEST ORDERABLE S Performing Organization Address City/State/[place] [address] (ABNORMAL) APTT (08/07/2017 10:18 [...] [facility]/ZIP Code Phon e Number [address] POCT Glucose (08/07/2017 8:10 PM EST) athologist Signature POC Glucose 140 65 - 199 [place] mg/dL [facility] LABORATORY Comment: Supplemental ranges: <140 mg/dL [...] [facility]/ZIP Code Phon e Number [address] POCT Glucose (08/07/2017 5:27 PM EST) athologist Signature POC Glucose 187 65 - 199 [place] mg/dL [facility] LABORATORY Comment: Supplemental ranges: <140 mg/dL [...] [facility]/ZIP Code Phon e Number [address] POCT Glucose (08/07/2017 3:29 PM EST) athologist Signature POC Glucose 86 65 - 199 [place] mg/dL [facility] LABORATORY Comment: Supplemental ranges: <140 mg/dL [...] [facility]/[place] [address] (ABNORMAL) APTT (08/07/2017 2:50 [...] [facility]/[place] [address] (ABNORMAL) POCT Glucose (08/07/2017 2:23 PM EST) athologist Signature POC Glucose 55 (L) 65 - 199 [facility] mg/dL [facility] LABORATORY Comment: Supplemental ranges: <140 mg/dL [...] [facility]/[place] [address] POCT Glucose (08/07/2017 12:08 PM EST) P athologist Signature POC Glucose 77 65 - 199 [facility] mg/dL [facility] LABORATORY Comment: Supplemental ranges: <140 mg/dL before meals <180 mg/dL all other times of the day Specimen Anatomical Collection Method Collection Time Receive d Time (Source) Location / / Volume Laterality Blood specimen 08/07/2017 12:08 8 (specimen) PM EST 12:08 PM EST Yonathan Smith MD POINT OF CARE TEST ORDERABLE S Performing Organization Address City/State/[place] [address] (ABNORMAL) Differential, Automated (08/07/2017 7:30 AM EST) Patholo gist Method Time Signature Neutrophils % 73.8 % [facility] LABORATORY Neutr Abs (ANC) 7.17 (H) 1.70 - [facility] 6.10 [facility] x10(3)/[facility] LABORATORY Lymphocytes % 12.2 % [facility] LABORATORY Lymphocytes Abs 1.2 0.9 - 3.2 [facility] x10(3)/[facility] LABORATORY Monocytes % 9.0 % [facility] LABORATORY Monocyte Abs 0.9 0.3 - 0.9 [facility] x10(3)/[facility] LABORATORY Eosinophils % 3.9 % [facility] LABORATORY Eosinophils Abs 0.4 0.0 - 0.4 [facility] x10(3)/[facility] LABORATORY Basophils % 0.6 % [facility] LABORATORY Basophils Abs 0.1 0.0 - 0.1 [facility] x10(3)/[facility] LABORATORY Immature Gran % 0.50 % [...] Gran Abs 0.05 (H) 0.00 - 0.04 x10(3)/[facility] LABORATORY Specimen Anatomical Collection Method Collection Time Receive d Time (Source) Location / / Volume Laterality Blood specimen 08/07/2017 7:30 AM 018 7:45 (specimen) EST AM EST Resulting Agency Comment Spec In Lab Yonathan Smith MD HEMATOLOGY ORDERABLES Performing Organization Address City/State/[place] [address] (ABNORMAL) Hemogram (08/07/2017 7:30 AM EST) Analysis Performed At Patho logist Time Signature WBC 9.7 (H) 4.0 - 9.5 [facility] x10(3)/[facility] LABORATORY RBC 3.54 (L) 4.58 - [facility] 5.54 [facility] x10(6)/[facility] LABORATORY Hemoglobin 9.9 (L) 13.7 - [facility] 16.5 gm/dL [facility] LABORATORY Hematocrit 32.3 (L) 40.5 - [facility] 48.5 % [facility] LABORATORY MCV 91.2 82.9 - [facility] 93.1 [facility] LABORATORY MCH 28.0 27.5 - [facility] 32.1 pg [facility] LABORATORY MCHC 30.7 (L) 32.0 - [facility] 35.7 gm/dL [facility] LABORATORY Platelets 312 145 - 357 [facility] x10(3)/[facility] LABORATORY RDWSD 53.2 (H) 36.0 - [facility] 45.0 [facility] LABORATORY RDWCV 16.0 (H) 11.4 - [facility] RYAN 13.8 % [facility] LABORATORY MPV 8.9 7.6 - 12.9 [facility] nRBC % Auto 0.0 % [facility] LABORATORY nRBC Abs Auto 0.000 0.000 - [facility] RYAN 0.000 [facility] x10(3)/[facility] LABORATORY Specimen Anatomical Collection Method Collection Time Receive d Time (Source) Location / / Volume Laterality Blood specimen 08/07/2017 7:30 AM 018 7:45 (specimen) EST AM EST Resulting Agency Comment Spec In Lab Yonathan Smith MD HEMATOLOGY ORDERABLES Performing Organization Address City/[facility]/[place] [address] (ABNORMAL) Basic Metabolic Panel (non-fasting) (08/07/2017 7:30 AM EST) athologist Signature Glucose Lvl 80 65 - 199 [facility] mg/dL [facility] LABORATORY Comment: Diabetes: >=200 mg/dL plus symp toms BUN 31 (H) 10 - 20 mg/dL [facility] LABORATORY Creatinine 1.22 0.80 - [...] CENTER LABORATORY Estimated GFR 59 (L) >=60 [facility] LABORATORY Comment: The reported eGFR should be multiplied b y 1.2 for patients. The MDRD is not an appropriate measure o f renal function for patients with body mass extremes or in patients with acute kidney failure. http://StudyEgg.Purple Harry/DHnkdep http://StudyEgg.Purple Harry/DHMCnkf Specimen Anatomical Collection Method Collection Time Receive d Time (Source) Location / / Volume Laterality Blood specimen 08/07/2017 7:30 AM 018 7:45 (specimen) EST AM EST Resulting Agency Comment Spec In Lab Yonathan Smith MD CHEMISTRY ORDERABLES Performing Organization Address City/[facility]/ZIP Code Phon e Number [place] [address] POCT Glucose (08/07/2017 7:27 AM EST) P athologist Signature POC Glucose 81 65 - 199 [facility] mg/dL [facility] LABORATORY Comment: Supplemental ranges: <140 mg/dL before meals <180 mg/dL all other times of the day Specimen Anatomical Collection Method Collection Time Receive d Time (Source) Location / / Volume Laterality Blood specimen 08/07/2017 7:27 AM 018 7:27 (specimen) EST AM EST Yonathan Smith MD POINT OF CARE TEST ORDERABLE S Performing Organization Address City/State/ZIP Code Phon e Number [address] APTT (08/07/2017 7:04 AM [...] Organization Address City/State/[place] [address] (ABNORMAL) Prothrombin Time (08/07/2017 [...] [facility]/ZIP Code Phon e Number [address] POCT Glucose (08/07/2017 4:03 AM EST) athologist Signature POC Glucose 93 65 - 199 [facility] mg/dL [facility] LABORATORY Comment: Supplemental ranges: <140 mg/dL [...] [facility]/ZIP Code Phon e Number [address] POCT Glucose (08/07/2017 12:04 AM EST) athologist Signature POC Glucose 107 65 - 199 [place] mg/dL [facility] LABORATORY Comment: Supplemental ranges: <140 mg/dL [...] [facility]/ZIP Code Phon e Number [address] POCT Glucose (08/06/2017 7:56 PM EST) athologist Signature POC Glucose 178 65 - 199 [facility] mg/dL [facility] Comment: Supplemental ranges: <140 mg/dL before meals <180 mg/dL all other times of the day Specimen Anatomical Collection Method Collection Time Receive d Time (Source) Location / / Volume Laterality Blood specimen 08/06/2017 7:56 PM 018 7:56 (specimen) EST PM EST Yonathan Smith MD POINT OF CARE TEST ORDERABLE S Performing Organization Address City/State/[place] [address] TcPO2 (08/06/2017 2:32 PM EST) Component Value Ref Test Analysis Performed At [facility] gist Range Method Time Signature VB Text Department: Vascular Surgery Lab VASCUBASE Report Patient: [id number] (GREGORY HOANG) CPT: 5658039 ICD10: I99.8 Referring Physician: YONATHAN SMITH ?? [...] mg (COMPLETED) 172 (Gi keke - Provider: Chiqius Mcgrath RN) 2.5 mg, Oral, ONCE, 1 [...] documented in this encounter Care Teams Director Operating Room Relationship Specialty Start Date End Date Lovely Vicente MD PCP - General 04/16/[address] [place] [address] [address] [place] [address] documented as of this encounter
--- OUTSIDE RECORDS SUMMARY | 2022-03-09 15:28 | XMS_ITS | Encounter Summary ---
:1945 Author Organization [facility] [place] [address] Care Team Providers Name Role Phone Lovely Vicente MD Primary Care Provider Reason for Visit Auth/Cert Specialty Diagnoses / Procedures Referred By Contact Refer red To Contact Diagnoses Critical lower limb ischemia CELLULITIS RT FOOT Procedures EMERGENCY Referral ID Status Reason Start Date Expiration Date Visits Requ ested Visits Authorized [id number] 1 1 Encounter Details Date Type Department Care Team Description 08/06/2017 Laboratory Appointment Lab at [facility] [place] [address] Social History Tobacco Use Types Packs/Day [...] [facility] ER DR TADEO [place], [place] [address] (Wo rk) 06/10/2022 Office Visit Dermatology Laura Scherer MD [facility] ER DR TEJA GR-DERMAT OLOGY [place], [place] [address] [...] Signature Prealbumin 19 (L) 20 - 40 [facility] mg/dL [facility] LABORATORY Comment: Prealbumin levels are generally [...] Organization Address City/State/Z[place] [address] (ABNORMAL) Basic Metabolic Panel (non-fasting) (08/06/2017 12:32 PM EST) P athologist Signature Glucose Lvl 92 65 - 199 [facility] mg/dL [facility] LABORATORY Comment: Diabetes: [...] HOSPITAL LABORATORY Estimated GFR 53 (L) >=60 [facility] LABORATORY Comment: The reported eGFR should be multiplied b y 1.2 for patients. The MDRD is not an appropriate measure o f renal function for patients with body mass extremes or in patients with acute kidney failure. http://ICVRx/DHnkdep http://ICVRx/DHMCnkf Specimen Anatomical Collection Method Collection Time Receive d Time (Source) Location / / Volume Laterality Blood specimen 08/06/2017 12:32 8 1:15 (specimen) PM EST PM EST Resulting Agency Comment Spec In Lab Arik Clement MD CHEMISTRY ORDERABLES Performing Organization Address City/State/Z[place] [address] (ABNORMAL) Hemogram (08/06/2017 12:32 PM EST) Analysis Performed At Patho logist Time Signature WBC 11.8 (H) 4.0 - 9.5 [facility] x10(3)/[facility] LABORATORY RBC 3.49 (L) 4.58 - [facility]54 [facility] x10(6)/[facility] LABORATORY Hemoglobin 9.9 (L) 13.7 - [facility] 16.5 gm/dL [facility] LABORATORY Hematocrit 32.0 (L) 40.5 - [facility] 48.5 % [facility] LABORATORY MCV 91.7 82.9 - [facility] 93.1 fL [facility] LABORATORY MCH 28.4 27.5 - [facility] 32.1 pg [facility] LABORATORY MCHC 30.9 (L) 32.0 - [facility] 35.7 gm/dL [facility] LABORATORY Platelets 326 145 - 357 [facility] x10(3)/[facility] LABORATORY RDWSD 53.4 (H) 36.0 - [facility] 45.0 [facility] LABORATORY RDWCV 16.0 (H) 11.4 - [facility] 13.8 % [facility] LABORATORY MPV 9.1 7.6 - 12.9 [facility] LABORATORY nRBC % Auto 0.0 % [facility] LABORATORY nRBC Abs Auto 0.000 0.000 - [facility] 0.000 [facility] x10(3)/[facility] LABORATORY Specimen Anatomical Collection Method Collection Time Receive d Time (Source) Location / / Volume Laterality Blood specimen 08/06/2017 12:32 8 1:15 (specimen) PM EST PM EST Resulting Agency Comment Spec In Lab Arik Clement MD HEMATOLOGY ORDERABLES Performing Organization Address City/State/[place] [address] documented in this encounter Visit Diagnoses Diagnosis Ischemia of foot Unspecified circulatory system disorder documented in this encounter Care Teams Retread Builder Relationship Specialty Start Date End Date Lovely Vicente MD PCP - General 04/16/[address] [place] [address] documented as of this encounter
--- OUTSIDE RECORDS SUMMARY | 2022-03-09 15:28 | XMS_ITS | Encounter Summary ---
:1945 [place] [address] Care Team Providers Name Role Phone Lovely Vicente MD Primary Care Provider Encounter Details Date Type Department Care Team Description 08/04/2017 Orders Only Cardiac Surgery Makayla Wilson APRN [facility] Jorge [facility] [place] [address] CARDIAC SURGERY [phone] [place], [place] [address] (Wo rk) Social History Tobacco [...] MD [facility] ER [address] [place], [place] [address] (Wo rk) 06/10/2022 Office Visit Dermatology Laura Scherer MD [facility] [address] TE[address] GR-DERMAT OLOGY [place], [place] [address] (Wo rk) documented as of this encounter Visit Diagnoses Not on filedocumented in this encounter Care Teams Camper Assembler Relationship Specialty Start Date End Date Lovely Vicente MD PCP - General 04/16/15 [address] [facility] [address] [address] [place] [address] documented as of this encounter
--- OUTSIDE RECORDS SUMMARY | 2022-03-09 15:28 | XMS_ITS | Encounter Summary ---
:1945 Author Organization [facility] [place] [address] Care Team Providers Name Role Phone Lovely Vicente MD Primary Care Provider Reason for Visit Auth/Cert Specialty Diagnoses / Procedures Referred By Contact Refer red To Contact Diagnoses Critical lower limb ischemia CELLULITIS RT FOOT Procedures EMERGENCY Referral ID Status Reason Start Date Expiration Date Visits Requ ested Visits Authorized [id number] 1 1 Encounter Details Date Type Department Care Team Description 08/04/2017 [place] En[place] [facility] Danette Maxwell Incisional pain [address] [place] [address] Dr Gomes, [employer] [facility] [phone] CARDIOLOGY [place], [place] [address] Social History Tobacco Use Types [...] Nobles MD [facility] CARDIOLOGY [place], [place] [address] (Wo rk) 06/10/2022 Office Visit Dermatology Laura Scherer MD [facility] DR TEJA GR-DERMAT OLOGY [place], [place] [address] [...] sensation documented in this encounter Care Teams Barytes Grinder Relationship Specialty Start Date End Date Lovely Vicente MD PCP - General 04/16/[address] [place] [address] documented as of this encounter
--- OUTSIDE RECORDS SUMMARY | 2022-03-09 15:28 | XMS_ITS | Encounter Summary ---
:1945 Author Organization [facility] [place] [address] Care Team Providers Name Role Phone Lovely Vicente MD Primary Care Provider Reason for Visit Auth/Cert Specialty Diagnoses / Procedures Referred By Contact Refer red To Contact Diagnoses Critical lower limb ischemia CELLULITIS RT FOOT Procedures EMERGENCY Referral ID Status Reason Start Date Expiration Date Visits Requ ested Visits Authorized [id number] 1 1 Encounter Details Date Type Department Care Team Description 08/06/2017 Clinical Support Same Day at [facility] Ischemia of foot [facility] [place] [address] Social History Tobacco Use Types Packs/Day [...] noother symptoms except severe right foot pain. [facility] clinic called as pt on route there [...] Nobles MD [facility] [address] T[address] [place], [place] [address] (Wo rk) 06/10/2022 Office Visit Dermatology Laura Scherer MD [facility] DR [address]-DERMAT OLOGY [place], [place] [address] (Wo rk) documented as [...] 444 ms MUSE SYSTEM (Bezet) Calculated P [place] 44 degrees MUSE SYSTEM Calculated R [place] -31 degrees MUSE SYSTEM Calculated T [place] 106 degrees MUSE SYSTEM INTERPRETATION Normal sinus [...] disorder documented in this encounter Care Teams Inserter Promotional Item Relationship Specialty Start Date End Date Lovely Vicente MD PCP - General 04/16/[address] [place] [address] documented as of this encounter
--- OUTSIDE RECORDS SUMMARY | 2022-03-09 15:28 | XMS_ITS | Encounter Summary ---
:1945 Author Organization [facility] [place] [address] Care Team Providers Name Role Phone Lovely Vicente MD Primary Care Provider Encounter Details Date Type Department Care Team Description 08/06/2017 Orders Only Vascular Surgery at [facility] Eden Moss APRN Ischemia of foot [facility] [place] [address] VASCULAR SURGERY [phone] [place], [place] [address] (Wo rk) Social History Tobacco [...] Cardiology Vitaliy Nobles MD [facility] ER DR CARLYLE [place], [place] [address] (Wo rk) 06/10/2022 Office Visit Dermatology Laura Scherer MD [facility] ER DR TEJA GR-DERMAT OLOGY [place], [place] [address] (Wo rk) documented [...] 444 ms MUSE SYSTEM (Bezet) Calculated P Reeders 44 degrees MUSE SYSTEM Calculated R Reeders -31 degrees MUSE SYSTEM Calculated T Reeders 106 degrees MUSE SYSTEM INTERPRETATION Normal sinus [...] Signature Prealbumin 19 (L) 20 - 40 [facility] mg/dL [facility] Comment: Prealbumin levels are [...] Organization Address City/State/ZIP Code [place] [address] (ABNORMAL) Basic Metabolic Panel (non-fasting) (08/06/2017 12:32 PM EST) P athologist Signature Glucose Lvl 92 65 - 199 [facility] mg/dL [facility] Comment: Diabetes: [...] HOSPITAL LABORATORY Estimated GFR 53 (L) >=60 [facility] Comment: The reported eGFR should be multiplied b y 1.2 for patients. The MDRD is not an appropriate measure o f renal function for patients with body mass extremes or in patients with acute kidney failure. http://3LM.Nimsoft/DHnkdep http://Every[employer]/DHMCnkf Specimen Anatomical Collection Method Collection Time Receive d Time (Source) Location / / Volume Laterality Blood specimen 08/06/2017 12:32 8 1:15 (specimen) PM EST PM EST Resulting Agency Comment Spec In Lab Arik Clement MD CHEMISTRY ORDERABLES Performing Organization Address City/State/[place] [address] (ABNORMAL) Hemogram (08/06/2017 12:32 PM EST) Analysis Performed At Patho logist Time Signature WBC 11.8 (H) 4.0 - 9.5 [facility] x10(3)/[facility] LABORATORY RBC 3.49 (L) 4.58 - [facility] 5.54 [facility] x10(6)/[facility] LABORATORY Hemoglobin 9.9 (L) 13.7 - [facility] 16.5 gm/dL [facility] Hematocrit 32.0 (L) 40.5 - [facility] 48.5 % [facility] MCV 91.7 82.9 - [facility] 93.1 [facility] LABORATORY MCH 28.4 27.5 - [facility] 32.1 pg [facility] MCHC 30.9 (L) 32.0 - [facility] 35.7 gm/dL [facility] Platelets 326 145 - 357 [facility] x10(3)/[facility] LABORATORY RDWSD 53.4 (H) 36.0 - [facility] 45.0 [facility] LABORATORY RDWCV 16.0 (H) 11.4 - [facility] 13.8 % [facility] MPV 9.1 7.6 - 12.9 [facility] LABORATORY nRBC % Auto 0.0 % [facility] LABORATORY nRBC Abs Auto 0.000 0.000 - [facility] 0.000 [facility] x10(3)/[facility] LABORATORY Specimen Anatomical Collection Method Collection Time Receive d Time (Source) Location / / Volume Laterality Blood specimen 08/06/2017 12:32 8 1:15 (specimen) PM EST PM EST Resulting Agency Comment Spec In Lab Arik Clement MD HEMATOLOGY ORDERABLES Performing Organization Address City/State/ZIP [place] [address] documented in this encounter Visit Diagnoses Diagnosis Ischemia of foot Unspecified circulatory system disorder documented in this encounter Care Teams Financial Planning Assistant Relationship Specialty Start Date End Date Lovely Vicente MD PCP - General 04/16/[address] [place] [address] documented as of this encounter
--- OUTSIDE RECORDS SUMMARY | 2022-03-09 15:28 | XMS_ITS | Encounter Summary ---
:1945 Author Organization [facility] [place] [address] Care Team Providers Name Role Phone Lovely Vicente MD Primary Care Provider Reason for Visit Auth/Cert Specialty Diagnoses / Procedures Referred By Contact Refer red To Contact Diagnoses Critical lower limb ischemia CELLULITIS RT FOOT Procedures EMERGENCY Referral ID Status Reason Start Date Expiration Date Visits Requ ested Visits Authorized [id number] 1 1 Encounter Details Date Type Department Care Team Description 08/04/2017 Laboratory Appointment Lab 3L [place] [address] Social History Tobacco Use Types Packs/Day [...] MD [facility] ER DR TADEO [place], [place] [address] (Wo rk) 06/10/2022 Office Visit Dermatology Laura Scherer MD [facility] DR TEJA GR-DERMAT OLOGY [place], [place] [address] (Wo rk) documented as of this encounter Visit Diagnoses Not on filedocumented in this encounter Care Teams Mail Forwarding System Markup Clerk Relationship Specialty Start Date End Date Lovely Vicente MD PCP - General 04/16/[address] [place] [address] documented as of this encounter
--- OUTSIDE RECORDS SUMMARY | 2022-03-09 15:28 | XMS_ITS | Encounter Summary ---
:1945 [place] [address] Care Team Providers Name Role Phone Lovely Vicente MD Primary Care Provider Encounter Details Date Type Department Care Team Description 08/04/2017 Notes Only Cardiac Surgery Makayla Wlison LIGHTING TECHNICIAN [facility] [place] [address] CARDIAC SURGERY [phone] [place], [place] [address] (Wo rk) Social History Tobacco [...] MD [facility] CARDIOLOGY [place], [place] [address] (Wo rk) 06/10/2022 Office Visit Dermatology Laura Scherer MD [facility] DR [address] RD-DERMAT OLOGY [place], [place] [address] (Wo rk) documented as of this encounter Visit Diagnoses Not on filedocumented in this encounter Care Teams Community Health Educator Relationship Specialty Start Date End Date Lovely Vicente MD PCP - General 04/16/[address] [place] [address] documented as of this encounter
--- OUTSIDE RECORDS SUMMARY | 2022-03-09 15:28 | XMS_ITS | Encounter Summary ---
:1945 [place] [address] Care Team Providers Name Role Phone Lovely Vicente MD Primary Care Provider Encounter Details Date Type Department Care Team Description 08/05/2017 Notes Only Vascular Surgery at [facility] Eden Moss, STACIE [facility] [place] [address] VASCULAR SURGERY [phone] [place], [place] [address] (Wo rk) Social History Tobacco [...] Nobles MD [facility] ER DR TADEO [place], [place] [address] (Wo rk) 06/10/2022 Office Visit Dermatology Laura Scherer MD [facility] DR TEJA GR[address]DERMAT [place], [place] [address] (Wo rk) documented as of this encounter Visit Diagnoses Not on filedocumented in this encounter Care Teams Plaster And Stucco Worker Relationship Specialty Start Date End Date Lovely Vicente MD PCP - General 04/16/[address] [place] [address] documented as of this encounter
--- OUTSIDE RECORDS SUMMARY | 2022-03-09 15:28 | XMS_ITS | Encounter Summary ---
:1945 [place] [address] Care Team Providers Name Role Phone Lovely Vicente MD Primary Care Provider Encounter Details Date Type Department Care Team Description 08/04/2017 Orders Only Cardiac Surgery Makayla Wilson APRN [facility] [address] [place] [address] CARDIAC SURGERY [phone] [place], [place] [address] (Wo rk) Social History Tobacco [...] MD [facility] ER DR CARLYLE [place], [place] [address] (Wo rk) 06/10/2022 Office Visit Dermatology Laura Scherer MD [facility] DR TEJA GR[address] OLOGY [place], [place] [address] (Wo rk) documented as of this encounter Visit Diagnoses Not on filedocumented in this encounter Care Teams Item Repair Manager Relationship Specialty Start Date End Date Lovely Vicente MD PCP - General 04/16/[address] [place] [address] documented as of this encounter
--- OUTSIDE RECORDS SUMMARY | 2022-03-09 15:29 | XMS_ITS | Encounter Summary ---
:1945 Author Organization [facility] [place] [address] Care Team Providers Name Role Phone Lovely Vicente MD Primary Care Provider Encounter Details Date Type Department Care Team Description 07/29/2017 Transcribe Orders Laboratory Lovely Vicente MD [address] [address] [place], [place] [address] (Wo rk) Social History Tobacco Use Types [...] Vitaliy Nobles MD [facility] ER DR TADEO [place], [place] [address] (Wo rk) 06/10/2022 Office Visit Dermatology Laura Scherer MD [facility] ER DR TEJA GR-DERMAT OLOGY [place], [place] [address] (Wo rk) documented as of this encounter Visit Diagnoses Not on filedocumented in this encounter Care Teams Patch Washer Relationship Specialty Start Date End Date Lovely Vicente MD PCP - General 04/16/[address] [facility] [place] [address] documented as of this encounter
--- OUTSIDE RECORDS SUMMARY | 2022-03-09 15:29 | XMS_ITS | Encounter Summary ---
:1945 Author Organization [facility] [place] [address] Care Team Providers Name Role Phone Lovely Vicente MD Primary Care Provider Reason for Visit Reason Comments Pain Management Ankle Pain Toe Pain Encounter Details Date Type Department Care Team Description 07/30/2017 Office Visit Pain Management at [facility] So[facility], Per ipheral neuropathy Theodore MOTOR TEACHER due to ischemia [facility] [address] Re[address], [place], [place] [phone] Social History Tobacco Use Types Packs/Day Years [...] Soares APRN - 07/30/2017 1:45 PM EST [facility] [place] [address] Phone: PAIN MANAGEMENT NEW PATIENT / CONSULTATION NOTE DATE OF VISIT 07/30/2017 Patient Don Fatima 1945 REFERRING PROVIDER Lovely Vicente MD [address] [place] [address] PRIMARY CARE PROVIDER Lovely Vicente MD CHIEF [...] much relief PAST THERAPIES: Nothing MEDICATIONS The [place] Prescription Monitoring Program was checked and no [...] 33.75) performed by Yuan Retana MD at [facility] OR ??? PRO CABG, ARTERY-VEIN, TWO N/A 07/07/2017 @CABG, TWO VENOUS GRAFTS & ARTERIAL GRAFT (WRVU 7.93) performed by Yuan Retana MD at [facility] OR ??? PRO COLONOSCOPY, REMV LESN, SNARE 01/16/2014 COLONOSCOPY, POLYPECTOMY, REMOVAL LESION BY SNARE performed by Nohemi Jaimes MD at [facility] ENDOSCOPY ??? PRO ENDOSCOPY W/VIDEO-ASST VEIN HARVEST, CABG Right 07/07/2017 ENDOSCOPIC HARVEST VEIN(S) FOR CABG (WRVU 0.31) performed by Yuan Retana MD at [facility] [...] referral, Lovely Vicente MD [address] [place] [phone]. 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
--- OUTSIDE RECORDS SUMMARY | 2022-03-09 15:29 | XMS_ITS | Encounter Summary ---
:1945 [place] [address] Care Team Providers Name Role Phone Lovely Vicente MD Primary Care Provider Encounter Details Date Type Department Care Team Description 08/03/2017 Hospital Encounter Radiology Library at [place], Tommy Mijares [facility] [place] [address] VASCULAR SURGERY [phone] [place], [place] [address] (Wo rk) Social History Tobacco [...] [facility] CARDIOLOGY [place], [place] [address] ( rk) 06/10/2022 Office Visit Dermatology Laura Scherer MD [facility] DR TEJA GR-DERMAT OLOGY [place], [place] [address] (Wo rk) documented [...] City/State/ZIP Code Phon e Number [facility] [place], [place] documented in this encounter Visit Diagnoses Diagnosis Pain Generalized pain documented in this encounter Care Teams Hand Dry Cleaner Relationship Specialty Start Date End Date Lovely Vicente MD PCP - General 04/16/[address] [place] [address] documented as of this encounter
--- OUTSIDE RECORDS SUMMARY | 2022-03-09 15:29 | XMS_ITS | Encounter Summary ---
:1945 Author Organization [facility] Address [facility] [place] [address] Care Team Providers Name Role Phone Lovely Vicente MD Primary Care Provider Reason for Visit Auth/Cert Specialty Diagnoses / Procedures Referred By Contact Refer red To Contact Diagnoses Critical lower limb ischemia CELLULITIS RT FOOT Procedures EMERGENCY Referral ID Status Reason Start Date Expiration Date Visits Requ ested Visits Authorized [id number] 1 1 Encounter Details Date Type Department Care Team Description 08/04/2017 Laboratory Lab 3L [place] Cardiomyopathy, unspecified type; Appointment [facility] Systolic congestive heart failure, unspecified congestive heart failure chronicity; Hospital Coronary artery rupture; 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 PROTHROMBIN TIME Routine 08/04/2017 12:55 Coronary artery Resu lts for this PM EST rupture procedure are in Ischemic the results cardiomyopathy section. Atherosclerosis of [place] coronary artery, angina presence unspecified, unspecified whether [place] or transplanted heart URIC ACID Routine 08/04/2017 [...] with the results diabetic section. nephropathy, unspecified addiction counselor insulin use status Essential hypertension, malignant COMPREHENSIVE Routine 08/04/2017 12:55 Essential Results fo r this METABOLIC PANEL PM EST hypertension, procedure a re in (NON-FASTING) malignant the results section. documented in this encounter Results Uric acid (08/04/2017 12:55 PM EST) P athologist Signature Uric Acid 7.1 3.5 - 8.5 [facility] mg/dL [facility] Specimen Anatomical Collection Method Collection Time Receive d Time (Source) Location / / Volume Laterality Blood specimen 08/04/2017 12:55 8 1:01 (specimen) PM EST PM EST Resulting Agency Comment Spec In Lab Lovely Vicente MD CHEMISTRY ORDERABLES Performing Organization Address City/State/ZIP Code [place] [address] (ABNORMAL) Hemogram (08/04/2017 12:55 PM EST) Analysis Performed At Patho logist Time Signature WBC 15.8 (H) 4.0 - 9.5 [facility] x10(3)/[facility] LABORATORY RBC 3.48 (L) 4.58 - [place] RYAN 5.54 [facility] x10(6)/[facility] LABORATORY Hemoglobin 9.9 (L) 13.7 - [facility] 16.5 gm/dL [facility] Hematocrit 31.4 (L) 40.5 - [facility] 48.5 % [facility]ORY MCV 90.2 82.9 - [facility] 93.1 [facility] LABORATORY MCH 28.4 27.5 - [place] RYAN 32.1 pg [facility] MCHC 31.5 (L) 32.0 - [facility] 35.7 gm/dL [facility] Platelets 310 145 - 357 [facility] x10(3)/[facility] LABORATORY RDWSD 51.8 (H) 36.0 - [facility] 45.0 [facility] LABORATORY RDWCV 15.8 (H) 11.4 - [facility] 13.8 % [facility] LABORATORY MPV 8.9 7.6 - 12.9 [facility] LABORATORY nRBC % Auto 0.0 % [facility] LABORATORY nRBC Abs Auto 0.000 0.000 - [facility] 0.000 [facility] x10(3)/[facility] LABORATORY Specimen Anatomical Collection Method Collection Time Receive d Time (Source) Location / / Volume Laterality Blood specimen 08/04/2017 12:55 8 1:01 (specimen) PM EST PM EST Resulting Agency Comment Spec In Lab Lovely Vicente MD HEMATOLOGY ORDERABLES Performing Organization Address City/State/ZIP Code [place] [address] (ABNORMAL) Comprehensive metabolic panel (non-fasting) (08/04/2017 12:55 PM EST) P athologist Signature Glucose Lvl 208 (H) 65 - 199 [facility] mg/dL [facility] Comment: Diabetes: >=200 mg/dL plus symp toms BUN 32 (H) 10 - 20 mg/dL [facility] Creatinine 1.58 (H) 0.80 - 1.50 mg/dL [facility] Sodium 136 135 - 145 [...] Total Protein 6.9 6.1 - 8.0 gm/dL [facility] Albumin 3.4 3.2 - 5.2 gm/dL [facility] AST 20 0 - 39 unit/L [facility] ALT 21 0 - 55 unit/L [facility] Alk Phos 93 40 - 120 unit/L [facility] Total Bilirubin 0.4 0.2 - 1.3 mg/dL [facility] LABOR[facility]ORY Estimated GFR 43 (L) >=60 [facility] Comment: The reported eGFR should be multiplied b y 1.2 for patients. The MDRD is not an appropriate measure o f renal function for patients with body mass extremes or in patients with acute kidney failure. http://AquaBlok.Moneyspyder/DHnkdep http://AquaBlok.Moneyspyder/DHMCnkf Specimen Anatomical Collection Method Collection Time Receive d Time (Source) Location / / Volume Laterality Blood specimen 08/04/2017 12:55 8 1:01 (specimen) PM EST PM EST Resulting Agency Comment Spec In Lab Lovely Vicente MD CHEMISTRY ORDERABLES Performing Organization Address City/State/ZIP Code [place] [address] (ABNORMAL) Hemoglobin A1c (08/04/2017 12:55 PM EST) Analysis Performed At [facility] Time Signature Hemoglobin A1C 6.2 (H) 4.3 - 5.6 [facility] Comment: Reference Range: 4.3 - 5.6% [...] Mellitus, Diabetes Care 2013; 36: Suppl. 1, R97-41 Est Avg Gluc See note mg/dL [facility] Comment: Estimated Average Glucose not appropriat [...] into estimated average glucose values. ??Diabetes Care 2008:31(8):9636-0634. Specimen Anatomical Collection Method Collection Time Receive d Time (Source) Location / / Volume Laterality Blood specimen 08/04/2017 12:55 8 1:01 (specimen) PM EST PM EST Resulting Agency Comment Spec In Lab Lovely Vicente MD CHEMISTRY ORDERABLES Performing Organization Address City/[facility]/ZIP [place] [address] (ABNORMAL) Prothrombin Time (08/04/2017 [...] Vicente MD HEMATOLOGY ORDERABLES Performing Organization Address City/[facility]/ZIP [place] [address] (ABNORMAL) pro-Brain Natriuretic Peptide (08/04/2017 12:55 PM EST) P athologist Signature ProBNP 3,133 (H) <=125 [facility] pg/mL [facility] Specimen Anatomical Collection Method Collection Time Receive d Time (Source) Location / / Volume Laterality Blood specimen 08/04/2017 12:55 8 1:01 (specimen) PM EST PM EST Resulting Agency Comment Spec In Lab Danette Maxwell APRN CHEMISTRY ORDERABLES Performing Organization Address City/[facility]/ZIP Code [place] [address] documented in this encounter Visit Diagnoses Diagnosis Cardiomyopathy, unspecified type Systolic congestive heart failure, unspe cified congestive heart failure chronicity Coronary artery rupture Acute myocardial infarction, unspecified site, episode of care unspecified Ischemic cardiomyopathy Other specified forms of chronic ischemi c heart disease Atherosclerosis of [place] coronary arter y, angina presence unspecified, unspecified whether [place] or transplanted heart Essential hypertension, malignant Diabetes mellitus due to underlying cond ition with diabetic nephropathy, unspecified addiction counselor insulin use status documented in this encounter Care Teams Terra Cotta Setter Relationship Specialty Start Date End Date Lovely Vicente MD PCP - General 04/16/[address] [place] [address] documented as of this encounter
--- OUTSIDE RECORDS SUMMARY | 2022-03-09 15:29 | XMS_ITS | Encounter Summary ---
:1945 [place] [address] Care Team Providers Name Role Phone Lovely Vicente MD Primary Care Provider Reason for Visit Reason Comments Hospital Transfer cold foot post CABG Auth/Cert Specialty Diagnoses / Procedures Referred By Contact Refer red To Contact Diagnoses Critical lower limb ischemia Procedures NAYE IPI Referral ID Status Reason Start Date Expiration Date Visits Requ ested Visits Authorized [id number] 1 1 Encounter Details Date Type Department Care Team Description 07/20/2017 Hospital Encounter 4 Herminia Ibarra MD [facility] [place] [address] Critical lower limb [facility] Arik Clement MD [facility] [place] [address] [place] [address] Social History Tobacco Use Types Packs/Day Years [...] home. Important Studies and Lab Data: Labs: [facility] Results Component Value Date INR 1.5 [...] For any problems or questions please call [phone] ZELDA Smith, camp nurse Nurse Clinician For issues on weeknights after 5pm and weekends please call [phone] and ask for the Vascular Fellow credit and collections analyst. General Instructions None Future Appointments and Orders Future Appointments Provider Department Dept Phone 08/04/2017 1:00 PM Daniele Mooney [place] [facility] [place] [phone] 08/04/2017 2:15 PM Arik Clement MD Vascular Surgery at [place] [phone] 09/07/2017 3:00 PM MAYRA CA[facility]CON Lab [facility] [phone] 09/07/2017 4:00 PM Luz Prescott MD Endocrinology at [place] [phone] Future Orders Complete By Expires Arterial Duplex Leg, Unil [VAS32 Custom] 07/27/2017 (Approximate) 01/26/2018 Process Instructions: There is no in-house vascular labor relations worker available on weeknights (5pm-8am), weekends, or holidays. IF THIS IS A REQUEST FOR AN EMERGENT STUDY DURING THOSE HOURS, please have the senior provider responsible for the patient page the Vascular Surgery Fellow/Senior Resident credit and collections analyst to discuss options. Scheduling Instructions: Questions: Indication for study/signs & symptoms: Right femoral PSA s/p cardiac cath Question to be answered: bloodflow to PSA Laterality: Right Is there a RIGHT LOWER EXTREMITY graft?: No Lower limb right segments: Common Femoral Is there a stent?: No At which location will this be performed?: [place] Referral to Home Health - at DISCHARGE [[id number] CPT(R)] As directed Process Instructions: Scheduling Instructions: Comments: DOCUMENTATION FOR VNA SERVICES (INCLUDING THOSE PATIENTS WITH MEDICARE COVERAGE REQUIRING HOME VNA SERVICES AND/OR HOSPICE SERVICES) PATIENT'S LOCATION: Gregory Fatima [address] [place] [address] [place] [id number] (home) Cell: Telephone Information: Rn Telehealth's Name: self In discussion with the attending physician, it is certified that this patient is under their care and that they, or a Nurse Practitioner,Clinical Nurse specialist or Physician Nut Culler who is working directly with them, had [...] CARE AGENCY: [facility] ([facility] [place] [facility]-is in [place]) PHONE: [phone] FAX: [phone] Start of care: 24- 48 hours FOR [...] patient'sPCP: Lovely Vicente MD [phone] [facility] [place] / [place] [address] All VNA agencies which cover the area [...] For any problems or questions please call [phone] ZELDA Smith, camp nurse Nurse Clinician For issues on weeknights after 5pm and weekends please call [phone] and ask for the Vascular Fellow credit and collections analyst. documented in this encounter Medications at Time [...] RN - 07/20/2017 2:53 PM EST The patient/novelties sales representative has been provided a list of Home Health Agencies/DME vendors which serve their preferred geographic area. A letter describing our affiliations was reviewed with them and theywere educated about their right to choose where referrals are placed. Patient requests referral to [facility] [employer]. PHONE: [phone] FAX: [phone]. Expected date of discharge: 07/20/2017 . Referral routed to the Maintenance Analyst for matching with agency/vendor and to provide any required information. Naty Pulliam RN - 07/20/2017 11:37 AM EST The patient/novelties sales representative has been provided a list of Home Health Agencies/DME vendors which serve their preferred geographic area. A letter describing our affiliations was reviewed with them and theywere educated about their right to choose where referrals are placed. Patient requests referral to [facility] ([facility] [place] [facility]- is in [facility] PHONE: [phone] FAX: [phone]. Expected date of discharge: 07/20/2017 . Referral routed to the Maintenance Analyst for matching with agency/vendor and to provide any required information. Katina Pulliam RNcredit and collections analyst Janneth Lee MD - 07/20/2017 7:29 AM [...] SETUP performed by Manny Mcknight MD at [facility] MAIN OR ??? PRO CABG, ARTERIAL, SINGLE N/A 07/07/2017 @CABG, USING ARTERIAL GRAFT;SINGLE ARTERIAL GRAFT (WRVU 33.75) performed by Yuan Retana MD at [facility] MAIN OR ??? PRO CABG, ARTERY-VEIN, TWO N/A 07/07/2017 @CABG, TWO VENOUS GRAFTS & ARTERIAL GRAFT (WRVU 7.93) performed by Yuan Retana MD at [facility] MAIN OR ??? PRO COLONOSCOPY, REMV LESN, SNARE 01/16/2014 COLONOSCOPY, POLYPECTOMY, REMOVAL LESION BY SNARE performed by Nohemi Jaimes MD at [facility] ENDOSCOPY ??? PRO ENDOSCOPY W/VIDEO-ASST VEIN HARVEST, CABG Right 07/07/2017 ENDOSCOPIC HARVEST VEIN(S) FOR CABG (WRVU 0.31) performed by Yuan Retana MD at [facility] MAIN OR ??? PRO THYROIDECTOMY 03/28/2013 THYROIDECTOMY, TOTAL OR COMPLETE performed by Manny Mcknight MD at [facility] MAIN OR Functional Status/Social Hx: Social [...] -ISS -pain control Discussed with Vascular Fellow credit and collections analyst. Chris Valadez MD PGY2 Pager [phone] documented in this encounter ED Notes Annita Reaves MD - 07/20/2017 3:15 PM EST Emergency Department Gregory Fatima is a 72 y.o. 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 History of Present Illness [...] 04/05/2013 Hospitalizations Within the Past 30 Days: [facility] 07/05/17 Anticipated Length Of Stay (If known): [...] Health/Prescription Coverage: Primary Insurance: MEDICARE Secondary Insurance: [employer] [facility] Prescription Coverage: See above Preferred Pharmacy: [facility] Other: N/A Primary Care Provider: Lovely Vicente MD [phone] Patient/Caregiver Goals of Treatment: Patient plans to return home when medically ready Potential Needs for Transition of Care: Rehab/SNF: N/A Home Health: [facility] ([facility] [place] [facility]-is in [place]) PHONE: [phone] FAX: [phone] DME: N/A Dialysis: N/A Community Resources: N/A Transportation: Patient family will transport Other: N/A Anticipated Barriers to Discharge/Special Considerations: None Plan: Patient plans to return home with home health services when medically ready A member of the Care Management team will continue to monitor progress, follow for continuity of care and assist with transition of care planning. Naty Pulliam RN Pager: [phone] ED Triage - Rayna Weir RN - 07/20/2017 12:28 AM EST Pt transferred from [place] for blue right foot and painful toes. [...] MD [facility] [address] [place], [place] [address] ([facility]) 06/10/2022 Office Visit Dermatology Laura Scherer MD [facility] DR TEJA GR-DERMAT OLOGY [place], [place] [address] ([facility]) documented as of this encounter Procedures Procedure Name Priority Date/Time Associated Comments Diagnosis CERTIFIED NURSE SCAN 09/02/2017 12:00 Res ults for this [...] TO LAB EST procedure are i n ([facility]) the results section. APTT STAT 07/20/2017 2:25 [...] in this encounter Results SCAN DOC: CERTIFIED NURSE (09/02/2017 12:00 AM EST) Narrative 09/02/2017 12:00 AM EST This result has an attachment that is no t available. Ordered by an unspecified provider. Scanning Provider MEDIA MGR SCAN EXT ORDR/RSLT POCT Glucose (07/20/2017 12:04 PM EST) P athologist Signature POC Glucose 189 65 - 199 [facility] mg/dL [facility] Comment: Supplemental ranges: <140 mg/dL before meals <180 mg/dL all other times of the day Specimen Anatomical Collection Method Collection Time Receive d Time (Source) Location / / Volume Laterality Blood specimen 07/20/2017 12:04 7 (specimen) PM EST 12:04 PM EST Arik Clement MD POINT OF CARE TEST ORDERABLE S Performing Organization Address City/State/ZIP Code Phon e Number [address] (ABNORMAL) Differential, Automated (07/20/2017 10:34 AM EST) [facility] Method Time Signature Neutrophils % 84.3 % [facility] LABORATORY Neutr Abs (ANC) 14.27 (H) 1.70 - [facility] 6.[address] [facility] x10(3)/[facility] LABORATORY Lymphocytes % 5.6 % [facility] LABORATORY Lymphocytes Abs 1.0 0.9 - 3.2 [facility] x10(3)/[facility] LABORATORY Monocytes % 6.1 % [facility] LABORATORY Monocyte Abs 1.0 (H) 0.3 - 0.9 [facility] x10(3)/[facility] LABORATORY Eosinophils % 2.4 % [facility]OR[facility]ORY Eosinophils Abs 0.4 0.0 - 0.4 [facility] x10(3)/[facility] LABORATORY Basophils % 0.5 % [facility] LABORATORY Basophils Abs 0.1 0.0 - 0.1 [facility] x10(3)/[facility] LABORATORY Immature Gran % 1.10 % [facility] Comment: Immature granulocytes(IG's)percentage an d absolute count will include metamyelocytes, myelocytes, and promyelo cytes. Blood smears from CBCs yielding IG's will be scanned manually for concor dance. If this scan disagrees with the automated IG or if promyelocytes are not ed, a manual differential will be performed. Melisa Gran Abs 0.19 (H) 0.00 - 0.04 x10(3)/[facility] LABORATORY Specimen Anatomical Collection Method Collection Time Receive d Time (Source) Location / / Volume Laterality Blood specimen 07/20/2017 10:34 7 (specimen) AM EST 10:39 AM EST Resulting Agency Comment Spec In Lab Arik Clement MD HEMATOLOGY ORDERABLES Performing Organization Address City/[facility]/[place] [address] (ABNORMAL) Hemogram (07/20/2017 10:34 AM EST) Analysis Performed At Patho logist Time Signature WBC 17.0 (H) 4.0 - 9.5 [facility] x10(3)/[facility] LABORATORY RBC 3.70 (L) 4.58 - [facility] 5.[address] [facility] x10(6)/[facility] LABORATORY Hemoglobin 10.8 (L) 13.7 - [facility] 16.5 gm/dL [facility] Hematocrit 33.4 (L) 40.5 - [facility] 48.5 % [facility] MCV 90.3 82.9 - [facility] 93.1 [facility] LABORATORY MCH 29.2 27.5 - [facility] 32.1 pg [facility] MCHC 32.3 32.0 - [facility] 35[facility] gm/dL [facility] Platelets 211 145 - 357 [facility] x10(3)/[facility] LABORATORY RDWSD 49.1 (H) 36.0 - [facility] 45.0 [facility] LABORATORY RDWCV 14.7 (H) 11.4 - [facility] 13.8 % [facility] MPV 9.2 7.6 - 12.9 [facility] LABORATORY nRBC % Auto 0.0 % [facility]OR[facility]ORY nRBC Abs Auto 0.000 0.000 - [facility] 0.[address] [facility] x10(3)/[facility] LABORATORY Specimen Anatomical Collection Method Collection Time Receive d Time (Source) Location / / Volume Laterality Blood specimen 07/20/2017 10:34 7 (specimen) AM EST 10:39 AM EST Resulting Agency Comment Spec In Lab Arik Clement MD HEMATOLOGY ORDERABLES Performing Organization Address City/State/[place] [address] (ABNORMAL) APTT (07/20/2017 10:34 AM EST) P athologist Signature PTT 79 (H) 25 - 35 sec [facility] Comment: The recommended therapeutic range for fu ll dose, unfractionated heparin at [facility] is 80 ? 114 [...] MD HEMATOLOGY ORDERABLES Performing Organization Address City/[facility]/ZIP Code Phon e Number [address] POCT Glucose (07/20/2017 7:41 AM EST) P athologist Signature POC Glucose 174 65 - 199 [facility] mg/dL [facility] Comment: Supplemental ranges: <140 mg/dL before meals <180 mg/dL all other times of the day Specimen Anatomical Collection Method Collection Time Receive d Time (Source) Location / / Volume Laterality Blood specimen 07/20/2017 7:41 AM 017 7:41 (specimen) EST AM EST Arik Clement MD POINT OF CARE TEST ORDERABLE S Performing Organization Address City/State/ZIP Code Phon e Number [address] JULIAN, legs, multiple levels (07/20/2017 7:33 AM EST) Component Value Ref Test Analysis Performed At Patholo gist Range Method Time Signature VB Text Department: Vascular Surgery Lab VASCUBASE Report Patient: [id number] (GREGORY FATIMA) CPT: 43078 ICD10: I75.021;I99.8 Referring Physician: ARIK CLEMENT ?? [...] Department: Vascular Surgery Lab VASCUBASE Report Patient: [id number] (GREGORY FATIMA) CPT: 35979 ICD10: I97.610;I99.8 Referring Physician: ARIK CLEMENT ?? [...] POC Glucose 199 65 - 199 [facility] mg/dL [facility] Comment: Supplemental ranges: <140 mg/dL before meals <180 mg/dL all other times of the day Specimen Anatomical Collection Method Collection Time Receive d Time (Source) Location / / Volume Laterality Blood specimen 07/20/2017 3:41 AM 017 3:41 (specimen) EST AM EST Arik Clement MD POINT OF CARE TEST ORDERABLE S Performing Organization Address City/State/[place] [address] Lactate, whole blood, send to lab (Leb/CGP) (07/20/2017 2:25 AM EST) athologist Signature Lactate WB 2.0 0.5 - 2.2 [facility] mmol/L [facility] Specimen Anatomical Collection Method Collection Time Receive d Time (Source) Location / / Volume Laterality Blood specimen Venous Draw / 07/20/2017 2:25 AM 2016 2:37 (specimen) Unknown EST AM EST Resulting Agency Comment Spec In Lab Zulma Samuel MD CHEMISTRY ORDERABLES Performing Organization Address City/State/[place] [address] (ABNORMAL) APTT (07/20/2017 2:25 AM EST) P athologist Signature PTT 36 (H) 25 - 35 sec [facility] Comment: The recommended therapeutic range for fu ll dose, unfractionated heparin at [facility] is 80 ? 114 [...] City/State/[place] [address] (ABNORMAL) Prothrombin Time (07/20/2017 2:25 AM EST) P athologist Signature PT 17.7 (H) 11.8 - 14.0 [facility] LABORATORY INR 1.5 (H) 0.9 - 1.1 [facility] Organization Address City/State/ZIP [place] [address] (ABNORMAL) Basic Metabolic Panel (non-fasting) (07/20/2017 2:25 AM EST) athologist Signature Glucose Lvl 187 65 - 199 [facility] mg/dL [facility] Comment: Diabetes: >=200 mg/dL plus symp toms BUN 35 (H) 10 - 20 mg/dL [facility] Creatinine 1.51 (H) 0.80 - 1.50 mg/dL [facility] Sodium 134 (L) 135 - 145 mmol/L [facility] Potassium Not Perf 3.5 - 5.0 mmol/L [facility] Comment: Specimen hemolyzed. Called by: [facility], Read back by: Chitra Orantes, Date/Time:07/20/17 03:05. Please note: ??Patients with WBC >100,00 0 may have falsely elevated Potassium levels. ??For accurate Potassium quantif ication in these patients send serum separator tube (gold top) for subsequent determinations. ??Contact the Clinical Chemistry Laboratory if there are any qu estions. Chloride 92 (L) 98 - 107 mmol/L [facility] CO2 29 22 - 31 mmol/L [facility] Anion Gap 13 5 - 15 mmol/L [facility] Calcium 8.6 8.5 - 10.5 mg/dL [facility] Estimated GFR 46 (L) >=60 [facility] Comment: The reported eGFR should be multiplied b y 1.2 for patients. The MDRD is not an appropriate measure o f renal function for patients with body mass extremes or in patients with acute kidney failure. http://[employer])/DHnkdep http://[employer])/DHMCnkf Specimen Anatomical Collection Method Collection Time Receive d Time (Source) Location / / Volume Laterality Blood specimen 07/20/2017 2:25 AM 017 2:33 (specimen) EST AM EST Resulting Agency Comment Spec In Lab Annita Reaves MD CHEMISTRY ORDERABLES Performing Organization Address City/State/ZIP Code [place] [address] documented in this encounter [...] Group 2) 0-8,000 Units, Intravenous, BOLUS PER [facility] PROTOCOL, Starting Wed07/20/17 at 0424, Until Wed07/20/17 [...]
Routine documented in this encounter Care Teams Tonguer Relationship Specialty Start Date End Date Lovely Vicente MD PCP - General 04/16/[address] [place] [address] documented as of this encounter
--- OUTSIDE RECORDS SUMMARY | 2022-03-09 15:29 | XMS_ITS | Encounter Summary ---
:1945 Author Organization [facility] [place] [address] Care Team Providers Name Role Phone Lovely Vicente MD Primary Care Provider Reason for Visit Reason Comments Foot Pain Auth/Cert Specialty Diagnoses / Procedures Referred By Contact Refer red To Contact Diagnoses Ischemic foot Procedures NAYE OBSVO Referral ID Status Reason Start Date Expiration Date Visits Requ ested Visits Authorized [id number] 1 1 Encounter Details Date Type Department Care Team Description 07/27/2017 Emergency 1 [facility] Lokesh Swenson MD [facility] [place] [address] Femoral artery pseudo-aneurysm, right; [facility] Tam Bauman MD [facility] [place] [address] [place] [address] Social History Tobacco Use Types Packs/Day [...] Gregory Fatima Patient Age: 72 y.o. Language: Bruneian Race: White Ethnicity: Not nor Admit date: [...] please contact your inpatient physician through the [facility] Husbandry Technician . Issues after hours and on weekends [...] RLE critical limb ischemia, who presented to [facility] with worsening RLE pain. Pt post-op course after CABG was significant for paroxysmal Afib, and he was started on Coumadin given elevated [id number] score. He presented 2 weeks following that, on 07/20, with RLE pain/pallor andwas found to have critical limb ischemia in setting of subtherapeutic INR, pseudoaneurysm Rt FLOOR RENOVATOR and occlusion b/l ant tibial arteries. He [...] in the last 7068 hours. Invalid input(s): [id number] Recent Labs 07/08/17 0400 07/07/17 0515 07/06/17 [...] (it was low at 1.6 here at [facility]) 7. Use the tramadol if dilaudid or tylenol is not working 8. Stop taking the potassium supplement - your blood potassium level was elevated. Ask your doctors at future visits if this should be restarted. 9. Antibiotic for 5 days recommended by cardiothoracic surgery for chest wound drainage Follow-Up Appointments Vascular surgery as previously schedule Your Inpatient Doctor(s) at [facility]: CARLOS ALBERTO ROSALES MD General Instructions None Future Appointments and Orders Future Appointments Provider Department Dept Phone 07/30/2017 8:30 AM OSWALDO, THREE L Lab 3L [facility] [phone] 07/30/2017 9:40 AM Danette Maxwell APRN Cardiology at [place] [phone] 08/04/2017 1:00 PM Daniele Mooney [place] V[facility] [place] [phone] 08/04/2017 2:15 PM Arik Clement MD Vascular Surgery at [place] [phone] 08/11/2017 10:00 AM [facility] ROOM 2 XRay at [place] [phone] Please go to [facility] ([place] Location). 08/11/2017 11:00 AM Yuan Retana MD Cardiac Surgery at [place] [phone] 09/07/2017 3:00 PM LAB, THREE L Lab 3L [facility] [phone] 09/07/2017 4:00 PM Luz Prescott MD Endocrinology at [place] [phone] Discharge References/Attachments None documented in this encounter [...] (it was low at 1.6 here at [facility]) 3. Use the tramadol if dilaudid or tylenol is not working 4. Stop taking the potassium supplement - your blood potassium level was elevated. Ask your doctors at future visits if this should be restarted. 5. Antibiotic for 5 days recommended by cardiothoracic surgery for chest wound drainage Follow-Up Appointments Vascular surgery as previously schedule Your Inpatient Doctor(s) at [facility]: CARLOS ALBERTO ROSALES MD documented in this [...] Gas) No results found for: PHART, PO2ART, UBR6OOG Assessment/Plan: 72 y.o. male s/p CABG in [...] intervention: Education Nutrition Recommendations: Recommend continuation of [facility], CHO2 diet order Patient and denied need [...] Orders Diet Daily Healthy Menu Choices/Cardiac diet ([facility]-Diet) 60/ CHO counting level 2 Frequency: Effective Now Number of Occurrences: Until Specified Admit Weight: 83.92 kg Estimated body mass index is 28.13 kg/(m^2) as calculated from the following: Height as of this encounter: 172.7 cm (5' 8). Weight as of this encounter: 83.9 kg (185 lb). [place] body weight: 68.4 kg (150 lb 12.7 [...] RLE critical limb ischemia, who presented to [facility] with worsening RLE pain. Visited with patient [...] spent >30 minutes (Day of Discharge Code 16364) involved in the final examination of the [...] Melanoma ID: 72 y.o. Male presents to [facility] with persistent pain b/l lower extremities History of Present Illness: HPI 72 y.o. male with PMH ASCVD s/p CABG (07/07/17), MARIA VICTORIA on CPAP QHS, HTN, HLD, DM2, with recent hospitalization for RLE critical limb ischemia, who presented to [facility] with worsening RLE pain. Pt post-op course after CABG was significant for paroxysmal Afib, and he was started on Coumadin given elevated [id number] score. He presented 2 weeks following that, on 07/20, with RLE pain/pallor andwas found to have critical limb ischemia in setting of subtherapeutic INR, pseudoaneurysm Rt FLOOR RENOVATOR and occlusion b/l ant tibial arteries. He [...] Procedure Component Value Units Date/Time Blood culture [[id number]] Collected: 07/09/1739 Lab Status: Final result Specimen: Blood from Arm, Right Updated: 07/14/17701 Blood Culture No growth at 5 days. Blood culture [[id number]] Collected: 07/09/170 Lab Status: Final result Specimen: [...] limb ischemia following CABG, who presented to [facility] ED from home with persistent B/L LE [...] continued Diet Daily Healthy Menu Choices/Cardiac diet ([facility]-Diet) 60/60/75 CHO counting level 2Cardiac, low salt, CHO 2 Discharge planning Pending improvement in pain control PT/OT/Speech PT ordered Lines/Access PIV Ocasio catheter No DVT/GI Prophylaxis Lovenox bridge to Coumadin, SCD. Code status Full Code Family PCP Lovely Vicente MD [phone] Attestation Please see my note for details [...] encounter Miscellaneous Notes Plan of Care - [employer]Joyce Damian, PT - 07/27/2017 3:26 PM EST [...] Anticipated Discharge Disposition: home with assist Pager: [phone] JOYCE KING, PT Inpatient Physical Therapy 2017 [...] patient's evaluation including the following functional test(s) [facility] Current ability measures, co-morbidities and clinical [...] a lovenox bridge. Mr. Fatima returns to [facility] ED tonight because of ongoing pain in [...] up in clinic 1-2 weeks after discharge. [facility] Vascular Surgery Plan of Care - Jazmín [...] [facility] CARDIOLOGY [place], [place] 0[address] (Wo rk) 06/10/2022 Office Visit Dermatology Laura Scherer MD [facility] [address]-DERMAT OLOGY [place], [place] [address] (Wo rk) documented as of [...] section. TYPE AND SCREEN STAT 07/27/2017 12:53 ([facility]/CGP/SHANDA) AM EST BASIC METABOLIC PANEL STAT 07/27/2017 12:53 Re sults for this (NON-FASTING) AM EST procedure are in the results section. documented in this encounter Results POCT Glucose (07/27/2017 11:53 AM EST) P athologist Signature POC Glucose 175 65 - 199 [facility] mg/dL [facility] LABOR[facility]ORY Comment: Supplemental ranges: <140 mg/dL before meals <180 mg/dL all other times of the day Specimen Anatomical Collection Method Collection Time Receive d Time (Source) Location / / Volume Laterality Blood specimen 07/27/2017 11:53 8 (specimen) AM EST 11:53 AM EST Tam Bauman MD POINT OF CARE TEST ORDERABLE S Performing Organization Address City/State/[place] [address] Arterial Duplex Leg, Unil (07/27/2017 7:40 AM EST) Component Value Ref Test Analysis Performed At Patholo gist Range Method Time Signature VB Text Department: Vascular Surgery Lab VASCUBASE Report Patient: [id number] (GREGORY FATIMA) CPT: 88424 ICD10: I97.610;I72.4;Z09 Referring Physician: TAM BAUMAN ?? [...] Bauman MD VASCULAR ORDERABLES Performing Organization Address City/[facility]/ZIP Code Phon e Number VASCUBASE POCT Glucose (07/27/2017 6:51 AM EST) P athologist Signature POC Glucose 96 65 - 199 [facility] mg/dL [facility] Comment: Supplemental ranges: <140 mg/dL before meals <180 mg/dL all other times of the day Specimen Anatomical Collection Method Collection Time Receive d Time (Source) Location / / Volume Laterality Blood specimen 07/27/2017 6:51 AM 018 6:51 (specimen) EST AM EST Tam Bauman MD POINT OF CARE TEST ORDERABLE S Performing Organization Address City/[facility]/ZIP Code Phon e Number [address] ABORH Recheck Status (07/27/2017 [...] City/[facility]/ZIP Code Phon e Number [address] Gold Tube HOLD (07/27/2017 12:53 AM EST) P athologist Signature Gold Hold Sample in [facility] LABORATORY Specimen Anatomical Collection Method Collection Time Receive d Time (Source) Location / / Volume Laterality Blood specimen Venous Draw / 07/27/2017 12:53 07/27/19 18 1:01 (specimen) Unknown AM EST AM EST Angela Swenson MD CHEMISTRY ORDERABLES Performing Organization Address City/[facility]/ZIP Code Phon e Number [place] [id number] HOSP[address] LAB[address] (ABNORMAL) Differential, Automated (07/27/2017 12:53 AM EST) [facility] Method Time Signature Neutrophils % 75.0 % [facility]OR[facility] Neutr Abs (ANC) 11.30 (H) 1.70 - [facility] 6.10 [facility] x10(3)/[facility] LABORATORY Lymphocytes % 9.9 % [facility] Lymphocytes Abs 1.5 0.9 - 3.2 [facility] x10(3)/[facility] LABORATORY Monocytes % 8.6 % [facility] Monocyte Abs 1.3 (H) 0.3 - 0.9 [facility] x10(3)/[facility] LABORATORY Eosinophils % 4.8 % [facility] Eosinophils Abs 0.7 (H) 0.0 - 0.4 [facility] x10(3)/[facility] LABORATORY Basophils % 0.8 % [facility] Basophils Abs 0.1 0.0 - 0.1 [facility] x10(3)/[facility] LABORATORY Immature Gran % 0.90 % [...] Gran Abs 0.13 (H) 0.00 - 0.04 x10(3)/[facility] LABORATORY Specimen Anatomical Collection Method Collection Time Receive d Time (Source) Location / / Volume Laterality Blood specimen 07/27/2017 12:53 8 1:00 (specimen) AM EST AM EST Resulting Agency Comment Spec In Lab Angela Swenson MD HEMATOLOGY ORDERABLES Performing Organization Address City/State/ZIP Code Phon e Number [place] [phone]OSP[address] LAB[address] (ABNORMAL) Hemogram (07/27/2017 12:53 AM EST) Analysis Performed At Patho logist Time Signature WBC 15.0 (H) 4.0 - 9.5 [facility] LABORATORY RBC 3.59 (L) 4.58 - [place] 5.54 [facility] x10(6)/[facility] LABORATORY Hemoglobin 10.3 (L) 13.7 - [facility] R[facility]AN 16.5 gm/dL [facility] LABOR[facility]ORY Hematocrit 32.6 (L) 40.5 - [facility] 48.5 % [facility] MCV 90.8 82.9 - [facility] 93.1 [facility] LABORATORY MCH 28.7 27.5 - [facility] 32.1 pg [facility] LABORATORY MCHC 31.6 (L) 32.0 - [place] 35.7 gm/dL [facility] LABORATORY Platelets 322 145 - 357 [facility] x10(3)/[facility] LABORATORY RDWSD 48.7 (H) 36.0 - [facility] 45.0 [facility] LABORATORY RDWCV 14.7 (H) 11.4 - [facility] 13.8 % [facility] LABORATORY MPV 8.9 7.6 - 12.9 [facility] LABORATORY nRBC % Auto 0.0 % [facility] LABORATORY nRBC Abs Auto 0.000 0.000 - [facility] 0.000 [facility] x10(3)/[facility] LABORATORY Specimen Anatomical Collection Method Collection Time Receive d Time (Source) Location / / Volume Laterality Blood specimen 07/27/2017 12:53 8 1:00 (specimen) AM EST AM EST Resulting Agency Comment Spec In Lab Angela Swenson MD HEMATOLOGY ORDERABLES Performing Organization Address City/State/[place] [address] Antibody screen (07/27/2017 12:53 AM EST) Patholo gist Method Time Signature Ab Screen Negative [facility] LABORATORY Expires at 07/30/2017 K[place]INA DAVIS [id number] on: [facility] LABOR[facility]ORY Specimen Anatomical Collection Method Collection Time Receive d Time (Source) Location / / Volume Laterality Blood specimen 07/27/2017 12:53 8 (specimen) AM EST 12:58 AM EST Resulting Agency Comment Spec In Lab Angela Swenson MD BLOOD BANK ORDERABLES Performing Organization Address City/[facility]/[place] [address] ABO/Rh Typing (07/27/2017 12:53 AM EST) P athologist Signature ABORh Type O Pos [facility] LABOR[facility]ORY Specimen Anatomical Collection Method Collection Time Receive d Time (Source) Location / / Volume Laterality Blood specimen 07/27/2017 12:53 8 (specimen) AM EST 12:58 AM EST Resulting Agency Comment Spec In Lab Angela Swenson MD BLOOD BANK ORDERABLES Performing Organization Address [facility] [place] [address] (ABNORMAL) Prothrombin Time (07/27/2017 12:53 AM EST) P athologist Signature PT 19.1 (H) 11.8 - 14.0 [place] [...] Swenson MD HEMATOLOGY ORDERABLES Performing Organization Address [facility] [place] [address] (ABNORMAL) Basic Metabolic Panel (non-fasting) (07/27/2017 12:53 AM EST) P athologist Signature Glucose Lvl 95 65 - 199 [facility] mg/dL [facility] LABOR[facility]ORY Comment: Diabetes: >=200 mg/dL plus symp toms BUN 37 (H) 10 - 20 mg/dL [facility] LABORATORY Creatinine 1.49 0.80 - [...] HOSPITAL LABORATORY Estimated GFR 46 (L) >=60 [facility] LABORATORY Comment: The reported eGFR should be multiplied b y 1.2 for patients. The MDRD is not an appropriate measure o f renal function for patients with body mass extremes or in patients with acute kidney failure. http://[employer]DHnkdep http://[employer]/DHMCnkf Specimen Anatomical Collection Method Collection Time Receive d Time (Source) Location / / Volume Laterality Blood specimen 07/27/2017 12:53 8 1:00 (specimen) AM EST AM EST Resulting Agency Comment Spec In Lab Angela Swenson MD CHEMISTRY ORDERABLES Performing Organization Address City/State/[place] [address] documented in this encounter Visit Diagnoses Diagnosis Ischemic foot - Primary Unspecified circulatory system disorder Femoral artery pseudo-aneurysm, 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
Routine documented in this encounter Care Teams Planning Analyst Relationship Specialty Start Date End Date Lovely Vicente MD PCP - General 04/16/15 [facility] [address] [place] [address] documented as of this encounter
--- OUTSIDE RECORDS SUMMARY | 2022-03-09 15:29 | XMS_ITS | Encounter Summary ---
:1945 Author Organization [facility] [place] [address] Care Team Providers Name Role Phone Lovely Vicente MD Primary Care Provider Encounter Details Date Type Department Care Team Description 07/29/2017 Transcribe Orders Laboratory Lovely Vicente MD [address] [address] [place], [place] [address] (Wo rk) Social History Tobacco Use Types [...] Nobles MD [facility] MEDICAL [facility] [address] T[address] [place], [place] [address] (Wo rk) 06/10/2022 Office Visit Dermatology Laura Scherer MD [facility] ER DR TEJA GR-DERMAT OLOGY [place], [place] [address] (Wo rk) documented as of this encounter Visit Diagnoses Not on filedocumented in this encounter Care Teams Basketball Scout Relationship Specialty Start Date End Date Lovely Vicente MD PCP - General 04/16/[address] [facility] [place] [address] documented as of this encounter
--- OUTSIDE RECORDS SUMMARY | 2022-03-09 15:29 | XMS_ITS | Encounter Summary ---
:1945 Author Organization [facility] [place] [address] Care Team Providers Name Role Phone Lovely Vicente MD Primary Care Provider Reason for Visit Reason Comments Deep Vein Thrombosis Auth/Cert Specialty Diagnoses / Procedures Referred By Contact Refer red To Contact Diagnoses Critical lower limb ischemia CELLULITIS RT FOOT Procedures EMERGENCY Referral ID Status Reason Start Date Expiration Date Visits Requ ested Visits Authorized [id number] 1 1 Encounter Details Date Type Department Care Team Description 08/04/2017 Office Visit Vascular Surgery at [facility] itical lower limb [facility] ischemia [facility] [address] [place], [place] VASCULAR SURGERY [id number] [place] [address] [phone] Social History Tobacco Use Types Packs/Day Years [...] was discharged on Coumadin. ??He presented to [facility] on 07/20 with mottled toes on the [...] Nobles MD [facility] [address] [place], [place] [address] (Wo rk) 06/10/2022 Office Visit Dermatology Laura Scherer MD [facility] DR TE[address] GR-DERMAT OLOGY [place], [place] [address] (Wo rk) documented as of this encounter Visit Diagnoses Diagnosis Critical lower limb ischemia Unspecified circulatory system disorder documented in this encounter Care Teams Otr Refrigerated Cdl Truck Driver Relationship Specialty Start Date End Date Lovely Vicente MD PCP - General 04/16/[address] [facility] [place] [address] documented as of this encounter
--- OUTSIDE RECORDS SUMMARY | 2022-03-09 15:29 | XMS_ITS | Encounter Summary ---
:1945 [place] [address] Care Team Providers Name Role Phone Lovely Vicente MD Primary Care Provider Encounter Details Date Type Department Care Team Description 07/29/2017 Hospital Encounter Vascular Lab at Critic monica Huber lower limb [facility] [place] [id number] Social History Tobacco Use Types Packs/Day Years [...] Nobles MD [facility] DR T[address] [place], [place] [address] (Wo rk) 06/10/2022 Office Visit Dermatology Laura Scherer MD [facility] DR [address]-DERMAT OGY [place], [place] [address] (Wo rk) documented as of this encounter Visit Diagnoses Diagnosis Critical lower limb ischemia Unspecified circulatory system disorder documented in this encounter Care Teams High School Professional Relationship Specialty Start Date End Date Lovely Vicente MD PCP - General 04/16/[address] [place] [address] documented as of this encounter
--- OUTSIDE RECORDS SUMMARY | 2022-03-09 15:29 | XMS_ITS | Encounter Summary ---
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 Patient [...] by Manny Mcknight MD at [facility] MAIN OR ??? PRO CABG, ARTERIAL, SINGLE N/A 07/07/2017 @CABG, USING ARTERIAL GRAFT;SINGLE ARTERIAL GRAFT (WRVU 33.75) performed by Yuan Retana MD at [facility] MAIN OR ??? PRO CABG, ARTERY-VEIN, TWO N/A 07/07/2017 @CABG, TWO VENOUS GRAFTS & ARTERIAL GRAFT (WRVU 7.93) performed by Yuan Retana MD at [facility] MAIN OR ??? PRO COLONOSCOPY, REMFlash MOCK, SNARE 01/16/2014 COLONOSCOPY, POLYPECTOMY, REMOVAL LESION BY SNARE performed by Nohemi Jaimes MD at [facility] ENDOSCOPY ??? PRO ENDOSCOPY W/VIDEO-ASST VEIN HARVEST, CABG Right 07/07/2017 ENDOSCOPIC HARVEST VEIN(S) FOR CABG (WRVU 0.31) performed by Yuan Retana MD at [facility] MAIN OR ??? 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 Hank Zhang Vascular Surgery, PGY2 Pager #[phone] Associated attestation - Arik Clement MD - [...] Nobles MD [facility] [address] [place], [place] [address] (Wo rk) 06/10/2022 Office Visit Dermatology Laura Scherer MD [facility] DR TEJA GR-DERMAT OLOGY [place], [place] [address] (Wo rk) documented as of [...] Component Value Ref Test Analysis Performed At [facility] gist Range Method Time Signature VB Text Department: Vascular Surgery Lab VASCUBASE Report Patient: [id number] (GREGORY FATIMA) CPT: 79574 ICD10: I82.541 Referring Physician: TAMIKO JIMÉNEZ ?? [...] Signature POC Glucose 128 65 - 199 [facility] mg/dL [facility] LABORATORY Comment: Supplemental ranges: <140 [...] [facility]/ZIP [place] [address] (ABNORMAL) D-Dimer, Quantitative (07/29/2017 2:15 PM EST) [facility] Method Time Signature D-Dimer, Quant 1,699 (H) 0 - 500 [facility] FEU ng/ml [facility]OR[facility] Comment: The D-Dimer assay is [...] Jiménez MD HEMATOLOGY ORDERABLES Performing Organization Address [facility]/ZIP [place] [address] (ABNORMAL) Differential, Automated (07/29/2017 2:15 PM EST) [facility] Method Time Signature Neutrophils % 82.5 % [facility] LABORATORY Neutr Abs (ANC) 10.21 (H) 1.70 - [facility] 6.10 [facility] x10(3)/[facility] L LABORATORY Lymphocytes % 7.1 % [facility] LABOR[facility]ORY Lymphocytes Abs 0.9 0.9 - 3.2 [facility] x10(3)/[facility] LABORATORY Monocytes % 6.5 % [facility] LABORATORY Monocyte Abs 0.8 0.3 - 0.9 [facility] x10(3)/[facility] LABORATORY Eosinophils % 2.7 % [facility] LABORATORY Eosinophils Abs 0.3 0.0 - 0.4 [facility] x10(3)/[facility] LABORATORY Basophils % 0.6 % [facility] LABORATORY Basophils Abs 0.1 0.0 - 0.1 [facility] x10(3)/[facility] LABORATORY Immature Gran % 0.60 % [facility] [...] Gran Abs 0.08 (H) 0.00 - 0.04 x10(3)/[facility] LABORATORY Specimen Anatomical Collection Method Collection Time Receive d Time (Source) Location / / Volume Laterality Blood specimen 07/29/2017 2:15 PM 018 2:36 (specimen) EST PM EST Resulting Agency Comment Spec In Lab Tamiko Jiménez MD HEMATOLOGY ORDERABLES Performing Organization Address City/State/ZIP Code Phon e Number [place] [id number] (ABNORMAL) Hemogram (07/29/2017 2:15 PM EST) Analysis Performed At Patho logist Time Signature WBC 12.4 (H) 4.0 - 9.5 [facility] x10(3)/[facility] LABORATORY RBC 4.17 (L) 4.58 - [facility] 5.54 [facility] x10(6)/[facility] LABORATORY Hemoglobin 12.1 (L) 13.7 - [facility] 16.[facility] g[facility]/dL [facility] LABOR[facility]ORY Hematocrit 38.1 (L) 40.5 - [facility] 48.5 % [facility] LABORATORY MCV 91.4 82.9 - [facility] 93.1 [facility] LABORATORY MCH 29.0 27.5 - [facility] 32.1 pg [facility] LABORATORY MCHC 31.8 (L) 32.0 - [facility] 35.7 gm/dL [facility] LABORATORY Platelets 204 145 - 357 [facility] x10(3)/[facility] LABORATORY RDWSD 50.5 (H) 36.0 - [facility] 45.0 fL [facility] RDWCV 15.3 (H) 11.4 - [facility] 13.8 % [facility] LABORATORY MPV 9.4 7.6 - 12.9 [facility] LABORATORY nRBC % Auto 0.0 % [facility] LABORATORY nRBC Abs Auto 0.000 0.000 - [facility] 0.000 [facility] x10(3)/[facility] LABORATORY Specimen Anatomical Collection Method Collection Time Receive d Time (Source) Location / / Volume Laterality Blood specimen 07/29/2017 2:15 PM 018 2:36 (specimen) EST PM EST Resulting Agency Comment Spec In Lab Tamiko Jiménez MD HEMATOLOGY ORDERABLES Performing Organization Address City/State/ZIP Code Phon e Number [address] (ABNORMAL) Prothrombin Time (07/29/2017 2:15 PM EST) P athologist Signature PT 24.4 (H) 11.8 - 14.0 [facility] LABORATORY INR 2.2 (H) 0.9 - 1.1 [facility] [...] Address City/State/ZIP Code Phon e Number [address] Arterial Duplex Leg, Unil (07/29/2017 11:50 AM EST) Component Value Ref Test Analysis Performed At Patholo gist Range Method Time Signature VB Text Department: Vascular Surgery Lab VASCUBASE Report Patient: [id number] (GREGORY FATIMA) CPT: 72367 ICD10: Z09;I97.610 Referring Physician: TAMIKO JIMÉNEZ ?? [facility] Range Method Time Signature VB Text Department: Vascular Surgery Lab VASCUBASE Report Patient: [id number] (GREGORY FATIMA) CPT: 36503 ICD10: I82.441 Referring Physician: TAMIKO JIMÉNEZ ?? [...] he calf. Notification: Marquis Pathak MD (pager #[phone]) was notif ied of the preliminary findings. [...] STAT documented in this encounter Care Teams Medical Administrative Technician Relationship Specialty Start Date End Date Lovely Vicente MD PCP - General 04/16/15 [employer] [address] [place] [address] documented as of this encounter
--- OUTSIDE RECORDS SUMMARY | 2022-03-09 15:29 | XMS_ITS | Encounter Summary ---
:1945 Author Organization [facility] [place] [address] Care Team Providers Name Role Phone Lovely Vicente MD Primary Care Provider Reason for Visit Reason Comments Follow-up Encounter Details Date Type Department Care Team Description 07/29/2017 Office Visit Cardiac Surgery at [facility] Yuan Retana MD S/P CABG x [address] [facility] [place] [address] CARDIOTHORACIC SURGERY [phone] [place], [place] [address] (Wo rk) Social History Tobacco [...] evaluation by vascular surgery. Yuan Retana MD [phone] documented in this encounter Plan of Treatment Upcoming Encounters Date Type Specialty Care Team Description 03/26/2022 Office Visit Cardiology Vitaliy Nobles MD [facility] [address] [place], [place] [address] (Wo rk) 06/10/2022 Office Visit Dermatology Laura Scherer MD [facility] DR TE[address] [place]LOG[place], [place] [address] (Wo rk) documented as of this encounter Visit Diagnoses Diagnosis S/P CABG x 3 Postsurgical aortocoronary bypass status documented in this encounter Care Teams Youth Agent Relationship Specialty Start Date End Date Lovely Vicente MD PCP - General 04/16/15 [address] [facility] [place] [address] documented as of this encounter
--- OUTSIDE RECORDS SUMMARY | 2022-03-09 15:29 | XMS_ITS | Encounter Summary ---
:1945 [place] [address] Care Team Providers Name Role Phone Lovely Vicente MD Primary Care Provider Encounter Details Date Type Department Care Team Description 08/03/2017 Hospital Encounter Radiology Library at [place], Tommy Mijares [facility] [place] [address] VASCULAR SURGERY [phone] [place], [place] [address] (Wo rk) Social History Tobacco [...] 0 06/2612/12/2021 2.5 mg Tablet daily. SAWYER HAMTPON pen Inject 20 Units 15 mL 1 [...] Vitaliy Nobles MD [facility] CARDIOLOGY [place], [place] [address] ( rk) 06/10/2022 Office Visit Dermatology Laura Scherer MD [facility] DR [address] [place], [place] [address] (Wo rk) documented as of [...] City/State/ZIP Code Phon e Number [facility] [place], [place] documented in this encounter Visit Diagnoses Diagnosis Pain Generalized pain documented in this encounter Care Teams Gas Turbine Powerplant Mechanic Helper Relationship Specialty Start Date End Date Lovely Vicente MD PCP - General 04/16/[address] [place] [address] documented as of this encounter
--- OUTSIDE RECORDS SUMMARY | 2022-03-09 15:29 | XMS_ITS | Encounter Summary ---
:1945 Author Organization [facility] [place] [address] Care Team Providers Name Role Phone Lovely Vicente MD Primary Care Provider Reason for Visit Reason Onset Date Comments Other 07/22/2017 lovenox bridge Encounter Details Date Type Department Care Team Description 07/22/2017 Telephone Cardiology at [facility] Court Cadena RN Other (lovenox bridge) [place] [address] Social History Tobacco Use Types Packs/Day [...] 4:49 PM EST VAMSI Del Castillo, at [facility], called earlier today with a question re: lovenox bridge for this patient who was recently discharged from [facility] r/t a blood clot. Discharge note faxed to [facility] (fax# [phone], Ph#: [phone]) which contains instructions r/t lovenox bridge as follows: Anticoagulation: on lovenox bridge to therapeutic coumadin for AFib. Goal INR 2-3. At discharge INR=1.5. The lovenox injections can stop when INR >2, coumadin will continue indefinitely. documented in this encounter Plan of Treatment Upcoming Encounters Date Type Specialty Care Team Description 03/26/2022 Office Visit Cardiology Vitaliy Nobles MD [facility] [address] [place], [place] [address] (Wo rk) 06/10/2022 Office Visit Dermatology Laura Scherer MD [facility] [address]DERMAT [facility] [place], [place] [address] (Wo rk) documented as of this encounter Visit Diagnoses Not on filedocumented in this encounter Care Teams Frame Feeder Relationship Specialty Start Date End Date Lovely Vicente MD PCP - General 04/16/[address] [place] [address] documented as of this encounter
--- OUTSIDE RECORDS SUMMARY | 2022-03-09 15:29 | XMS_ITS | Encounter Summary ---
:1945 Author Organization [facility] [place] [address] Care Team Providers Name Role Phone Lovely Vicente MD Primary Care Provider Encounter Details Date Type Department Care Team Description 08/03/2017 Telephone Pain Management at [facility] [place], [place] [address] Social History Tobacco Use Types Packs/Day [...] Management Center Preauthorization Request Patient: Don Fatima [id number] Fax received from [facility] requesting we obtain prior authorization for Lidocaine Patches prescribed by Barbra Soares APRN. RX insurance plan: [facility] [employer] insurance telephone: [phone] Patient ?? Diagnosis: right foot pain secondary to PVD and ischemia ?? Previous medications attempted: Tylenol, Tramadol, Dilaudid Authorization/Reference number: [id number], PBP Code 801 _x_ denied, provider and patient informed _x_ appeal initiated by provider, patient informed Angeles Rodrigez, RN documented in this encounter Plan of Treatment Upcoming Encounters Date Type Specialty Care Team Description 03/26/2022 Office Visit Cardiology Vitaliy Nobles MD [facility] MEDICAL [facility] ER [address] [place], [place] [address] (Wo rk) 06/10/2022 Office Visit Dermatology Laura Scherer MD [facility] MEDICAL [facility] [address] TEJA GR-DERMAT [place], [place] [address] (Wo rk) documented as of this encounter Visit Diagnoses Not on filedocumented in this encounter Care Teams Nurse Care Manager Relationship Specialty Start Date End Date Lovely Vicente MD PCP - General 04/16/15 [facility] [address] [place] [address] documented as of this encounter
--- OUTSIDE RECORDS SUMMARY | 2022-03-09 15:29 | XMS_ITS | Encounter Summary ---
:1945 Author Organization [facility] [place] [address] Care Team Providers Name Role Phone Lovely Vicente MD Primary Care Provider Reason for Visit Auth/Cert Specialty Diagnoses / Procedures Referred By Contact Refer red To Contact Diagnoses Critical lower limb ischemia CELLULITIS RT FOOT Procedures EMERGENCY Referral ID Status Reason Start Date Expiration Date Visits Requ ested Visits Authorized [id number] 1 1 Encounter Details Date Type Department Care Team Description 08/04/2017 Office Visit Cardiology at [facility] Danette Maxwell Incisional pain; [facility] A, PRESSURE VESSEL INSPECTOR Ischemic cardiomyopathy; [facility] ASCVD (arteriosclerotic card iovascular disease); [place], [place] Systolic heart failure, unspecified hear t failure chronicity [id number] CARDIOLOGY [phone] [place], [place] [address] Social History Tobacco Use Types [...] in this encounter Progress Notes Danette Maxwell, PRESSURE VESSEL INSPECTOR - 08/04/2017 3:00 PM EST ID [...] painful 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 [...] Nobles MD [facility] CARDIOLOGY [place], [place] [address] (Wo rk) 06/10/2022 Office Visit Dermatology Laura Scherer MD [facility] DR TE[address] GR-DERMAT [place], [place] [address] (Wo rk) documented as of [...] EXAMINATION: XR CHEST PA AND LATERAL ([facility]) CLINICAL HISTORY: Checking sternal stabi lity/assess wires [...] sensation documented in this encounter Care Teams Greenhouse Specialist Relationship Specialty Start Date End Date Lovely Vicente MD PCP - General 04/16/[address] [place] [address] documented as of this encounter
--- OUTSIDE RECORDS SUMMARY | 2022-03-09 15:29 | XMS_ITS | Encounter Summary ---
:1945 [place] [address] Care Team Providers Name Role Phone Lovely Vicente MD Primary Care Provider Encounter Details Date Type Department Care Team Description 07/29/2017 Telephone Pain Aurelia Crawford MD [facility] [place] [address] PAIN CLINIC [phone] [place], [place] [address] (Wo rk) Social [...] Nobles MD [facility] MEDICAL [facility] ER CARDIOLOGY [place], [place] [address] (Wo rk) 06/10/2022 Office Visit Dermatology Laura Scherer MD [facility] [address] TE[address] GR-DERMAT [place]LOG[place], [place] [address] (Wo rk) documented as of this encounter Visit Diagnoses Not on filedocumented in this encounter Care Teams Superintendent Operating Relationship Specialty Start Date End Date Lovely Vicente MD PCP - General 04/16/15 [facility] [address] [place] [address] documented as of this encounter
--- OUTSIDE RECORDS SUMMARY | 2022-03-09 15:29 | XMS_ITS | Encounter Summary ---
:1945 Author Organization [facility] [place] [address] Care Team Providers Name Role Phone Lovely Vicente MD Primary Care Provider Encounter Details Date Type Department Care Team Description 07/24/2017 Telephone Vascular Surgery Melba Bob [facility] [place] [address] [facility] [phone] VASCULAR SURGERY [place], [place] [address] (Wo rk) Social History [...] discharged on Coumadin. ??He presented to [facility] on 07/20 with mottled toes on the [...] Vitaliy Nobles MD [facility] MEDICAL [facility] ER [address] [place], [place] [address] (Wo rk) 06/10/2022 Office Visit Dermatology Laura Scherer MD [facility] [address] TEJA GR-DERMAT [facility] [place], [place] [address] (Wo rk) documented as of this encounter Visit Diagnoses Not on filedocumented in this encounter Care Teams Mental Health Therapist Relationship Specialty Start Date End Date Lovely Vicente MD PCP - General 04/16/[address] [place] [address] (work) documented as of this encounter
--- OUTSIDE RECORDS SUMMARY | 2022-03-09 15:29 | XMS_ITS | Encounter Summary ---
:1945 [place] [address] Care Team Providers Name Role Phone Lovely Vicente MD Primary Care Provider Reason for Visit Reason Onset Date Comments Questions 07/16/2017 fluid retention Encounter Details Date Type Department Care Team Description 07/16/2017 Telephone Cardiology at [facility] Martha Comer, Questions ([facility] RN retention ) [place] [address] Social History Tobacco Use Types Packs/Day [...] the direct number to the HF team ([phone]). She is aware of his appt with FILTER PULP WASHER Hans on 07/21/17 and the need for labs prior to that visit. verbalized good understanding of the current POC. documented in this encounter Plan of Treatment Upcoming Encounters Date Type Specialty Care Team Description 03/26/2022 Office Visit Cardiology Vitaliy Nobles MD [facility] [address] [place], [place] [address] (Wo rk) 06/10/2022 Office Visit Dermatology Laura Scherer MD [facility] [address] GR-DERMAT [place], [place] [address] (Wo rk) documented as of this encounter Visit Diagnoses Not on filedocumented in this encounter Care Teams Interlocking And Signal Mechanic Relationship Specialty Start Date End Date Lovely Vicente MD PCP - General 04/16/15 [facility] [address] [place] [address] documented as of this encounter
--- OUTSIDE RECORDS SUMMARY | 2022-03-09 15:29 | XMS_ITS | Encounter Summary ---
:1945 Author Organization [facility] [place] [address] Care Team Providers Name Role Phone Lovely Vicente MD Primary Care Provider Reason for Visit Auth/Cert Specialty Diagnoses / Procedures Referred By Contact Refer red To Contact Diagnoses Critical lower limb ischemia CELLULITIS RT FOOT Procedures EMERGENCY Referral ID Status Reason Start Date Expiration Date Visits Requ ested Visits Authorized [id number] 1 1 Encounter Details Date Type Department Care Team Description 08/04/2017 [facility] [facility] [place] [phone] Social History Tobacco Use Types Packs/Day Years [...] Vitaliy Nobles MD [facility] CARDIOLOGY [place], [place] [address] (Wo rk) 06/10/2022 Office Visit Dermatology Laura Scherer MD [facility] DR TEJA GR-DERMAT [place], [place] [address] (Wo rk) documented as of [...] Component Value Ref Test Analysis Performed At [facility] Range Method Time Signature VB Text Department: Vascular Surgery Lab VASCUBASE Report Patient: [id number] (DON HOANG) CPT: 49203 ICD10: I82.541 Referring Physician: TAMIKO HUTSON ?? [...] extremity documented in this encounter Care Teams Yard Person Relationship Specialty Start Date End Date Lovely Vicente MD PCP - General 04/16/[address] [place] [address] documented as of this encounter
--- OUTSIDE RECORDS SUMMARY | 2022-03-09 15:29 | XMS_ITS | Encounter Summary ---
:1945 Author Organization [employer] Address [address] [facility] [place] [address] Care Team Providers Name Role Phone Lovely Vicente MD Primary Care Provider Encounter Details Date Type Department Care Team Description 07/29/2017 Transcribe Orders Laboratory Lovely Vicente, Coronary artery rupture; [facility] Ischemic cardiomyopathy; [facility] [place] [address] Atherosclerosis of enterprise co ronary artery, angina presence unspecified, unspecified whether enterprise or transplanted heart; [place], [place] [address] Essential hypertension, malignant; [id number] [place], [place] 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, unspecified [facility] insulin use status [phone] [id number] Social History Tobacco Use Types Packs/Day Years [...] Nobles MD [facility] CARDIOLOGY [place], [place] [address] (Wo rk) 06/10/2022 Office Visit Dermatology Laura Scherer MD [facility] ER [address] [place], [place] [address] (Wo rk) Scheduled Orders Name Type Priority Associated Diagnoses Order S chedule Lab Use Only, Fax Lab Routine Coronary arter y rupture Expected: 07/29/2017 Request Ischemic cardiom yopathy (Approximate), Atherosclerosis of enterprise Ex jose: 07/29/2018 coronary artery, angina presence unspecified, unspecified whether enterprise or transplanted heart Essential hypertension, malignant documented as of this encounter Results Uric acid (08/04/2017 12:55 PM EST) P athologist Signature Uric Acid 7.1 3.5 - 8.5 K[place]INA RYAN mg/dL [facility] Specimen Anatomical Collection Method Collection Time Receive d Time (Source) Location / / Volume Laterality Blood specimen 08/04/2017 12:55 8 1:01 (specimen) PM EST PM EST Resulting Agency Comment Spec In Lab Lovely Vicente MD CHEMISTRY ORDERABLES Performing Organization Address City/State/[place] [address] (ABNORMAL) Hemogram (08/04/2017 12:55 PM EST) Analysis Performed At Patho logist Time Signature WBC 15.8 (H) 4.0 - 9.5 KATALINA RYAN x10(3)/[facility] LABORATORY RBC 3.48 (L) 4.58 - K[place]INA RYAN 5.54 [facility] x10(6)/[facility] LABORATORY Hemoglobin 9.9 (L) 13.7 - [place] RYAN 16.5 gm/dL [facility] Hematocrit 31.4 (L) 40.5 - KATALINA RYAN 48.5 % [facility] MCV 90.2 82.9 - K[place]INA RYAN 93.1 fL [facility] MCH 28.4 27.5 - [place] RYAN 32.1 pg [facility] MCHC 31.5 (L) 32.0 - [place]INA RYAN 35.7 gm/dL [facility] Platelets 310 145 - 357 [place]ALINA RYAN x10(3)/[facility] LABORATORY RDWSD 51.8 (H) 36.0 - [facility] 45.0 [facility] LABORATORY RDWCV 15.8 (H) 11.4 - [facility] 13.8 % [facility] MPV 8.9 7.6 - 12.9 [facility] LABORATORY nRBC % Auto 0.0 % [facility] nRBC Abs Auto 0.000 0.000 - [facility] 0.000 [facility] x10(3)/[facility] LABORATORY Specimen Anatomical Collection Method Collection Time Receive d Time (Source) Location / / Volume Laterality Blood specimen 08/04/2017 12:55 8 1:01 (specimen) PM EST PM EST Resulting Agency Comment Spec In Lab Lovely Vicente MD HEMATOLOGY ORDERABLES Performing Organization Address City/State/[place] [address] (ABNORMAL) Comprehensive metabolic panel (non-fasting) (08/04/2017 12:55 PM EST) P athologist Signature Glucose Lvl 208 (H) 65 - 199 [facility] mg/dL [facility] Comment: Diabetes: >=200 mg/dL plus symp toms BUN 32 (H) 10 - 20 mg/dL [facility] Creatinine 1.58 (H) 0.80 - 1.50 mg/dL [facility] [...] Total Protein 6.9 6.1 - 8.0 gm/dL [facility] Albumin 3.4 3.2 - 5.2 gm/dL [facility] AST 20 0 - 39 unit/L [facility] ALT 21 0 - 55 unit/L [facility] Alk Phos 93 40 - 120 unit/L [facility] Total Bilirubin 0.4 0.2 - 1.3 mg/dL [facility] Estimated GFR 43 (L) >=60 [facility] Comment: The reported eGFR should be multiplied b y 1.2 for patients. The MDRD is not an appropriate measure o f renal function for patients with body mass extremes or in patients with acute kidney failure. http://Cardica/DHnkdep http://Cardica/DHMCnkf Specimen Anatomical Collection Method Collection Time Receive d Time (Source) Location / / Volume Laterality Blood specimen 08/04/2017 12:55 8 1:01 (specimen) PM EST PM EST Resulting Agency Comment Spec In Lab Lovely Vicente MD CHEMISTRY ORDERABLES Performing Organization Address City/State/[place] [address] (ABNORMAL) Hemoglobin A1c (08/04/2017 12:55 PM EST) Analysis Performed At Patho logist Time Signature Hemoglobin A1C 6.2 (H) 4.3 - 5.6 [facility] [...] [id number] Est Avg Gluc See note mg/dL [facility] [...] with hemoglobinopathies. Additional resources are available on [facility] ADA website. Macario HMAMOND, Ruthann J, Deysi R, et al. ??Tr anslating the A1C assay into estimated average glucose values. ??Diabetes Care 2008:31(8):2508-6747. Specimen Anatomical Collection Method Collection Time Receive d Time (Source) Location / / Volume Laterality Blood specimen 08/04/2017 12:55 8 1:01 (specimen) PM EST PM EST Resulting Agency Comment Spec In Lab Lovely Vicente MD CHEMISTRY ORDERABLES Performing Organization Address City/State/[place] [address] (ABNORMAL) Prothrombin Time (08/04/2017 12:55 PM EST) P athologist Signature PT 35.4 (H) 11.8 - 14.0 [facility] LABORATORY INR 3.5 (H) 0.9 - [...] Organization Address City/State/[place] [address] documented in this encounter Visit Diagnoses Diagnosis Coronary artery rupture Acute myocardial infarction, unspecified site, episode of care unspecified Ischemic cardiomyopathy Other specified forms of chronic ischemi c heart disease Atherosclerosis of enterprise coronary arter y, angina presence unspecified, unspecified whether enterprise or transplanted heart Essential hypertension, malignant Diabetes mellitus due to underlying cond ition with diabetic nephropathy, unspecified termite exterminator insulin use status documented in this encounter Care Teams Bean Sprout Grower Relationship Specialty Start Date End Date Lovely Vicente MD PCP - General 04/16/[address] [place] [address] documented as of this encounter
--- OUTSIDE RECORDS SUMMARY | 2022-03-09 15:29 | XMS_ITS | Encounter Summary ---
:1945 Author Organization [facility] [place] [address] Care Team Providers Name Role Phone Lovely Vicente MD Primary Care Provider Encounter Details Date Type Department Care Team Description 08/02/2017 Telephone Pain Management at [facility] [place], [place] [address] Social History Tobacco Use Types Packs/Day [...] Management Center Preauthorization Request Patient: Don Fatima [id number] Fax received from [facility] requesting we obtain prior authorization for Lidocaine patches prescribed by Barbra Soares APRN. RX insurance plan: [employer] insurance telephone: [phone] Patient Diagnosis: right foot pain secondary to PVD and ischemia Previous medications attempted: Tylenol, Tramadol, Dilaudid The following action was taken after discussion with the career services assistant: _x_ pharmacy informed Authorized dosage or amount: 5% on patch on for 12 hours, then remove for 12 hours. Angeles Rodrigez, RN documented in this encounter Plan of Treatment Upcoming Encounters Date Type Specialty Care Team Description 03/26/2022 Office Visit Cardiology Vitaliy Nobles MD [facility] ER [address] [place], [place] [address] (Wo rk) 06/10/2022 Office Visit Dermatology Laura Scherer MD [facility] ER [address] [facility] [place] [place] [address] (Wo rk) documented as of this encounter Visit Diagnoses Not on filedocumented in this encounter Care Teams Dice Spotter Relationship Specialty Start Date End Date Lovely Vicente MD PCP - General 04/16/[address] [place] [address] documented as of this encounter
--- OUTSIDE RECORDS SUMMARY | 2022-03-09 15:31 | XMS_ITS | Encounter Summary ---
:1945 Author Organization [facility] [place] [address] Care Team Providers Name Role Phone Lovely Vicente MD Primary Care Provider Encounter Details Date Type Department Care Team Description 07/08/2017 Orders Only Cardiology [facility] [place] [address] Social History Tobacco Use Types Packs/Day [...] MD [facility] [address] [place], [place] [address] (Wo rk) 06/10/2022 Office Visit Dermatology Laura Scherer MD [facility] [address] [place], [place] [address] (Wo rk) documented as of [...] Mccollum ? (Age): 1945(72y) Med Rec#: ? [id number] ?Sex: ?M ? Site Loc: ? Ht / Wt: ??(cm)/ (kg) ? Pt. Loc: ? Study Date: ?? 07/07/2017 ?Pt. Type: Tape: ? Referring: Yuan Retana Reading: Yifan Perez MD ([id number]) Performing: Yifan Perez MD ([id number]) Diagnosis: SUMMARY: 1. [facility] [...] ? Mid-Inferior ?Hypokinetic ? Mid-Inferoseptal ?Hypokinetic ? [place]-Septal ? Hypokinetic ? [place]-Anterior ? Hypokinetic ? [place]-Lateral ?Hypokinetic ? [place]-Inferior ? Hypokinetic ? [place]-Tip ?Not Seen ? This report has been electronically sign ed by: _ Yifan Perez MD ? 07/08/2017 12 :25:18 Images reviewed and interpretation [facility] Cardiac Ultrasound Laboratory Procedure Note Yifan Perez MD - 07/08/2017Formatt ing of this note might be different from the original. Procedure: Transesophageal Echocardiogra m Patient: NATALYA MCBRIDE(Age): [birth year]72y) Med Rec#: [id number] Sex: M Site Loc: Ht / Wt: (cm)/ (kg) Pt. Loc: Study Date: 07/07/2017 Pt. Type: Tape: Referring: Yuan Retana Reading: Yifan Perez MD ([id number]) Performing: Yifan Perez MD ([id number]) Diagnosis: SUMMARY: 1. [facility] [...] Hypokinetic Mid-Posterolateral Hypokinetic Mid-Inferior Hypokinetic Mid-Inferoseptal Hypokinetic [place]-Septal Hypokinetic [place]-Anterior Hypokinetic [place]-Lateral Hypokinetic [place]-Inferior Hypokinetic [place]-Tip Not Seen This report has been electronically sign ed by: _ Yifan Perez MD 07/08/2017 12:25:18 Images reviewed and interpretation verif ied [facility] Cardiac Ultrasound Laboratory Unknown ECHO ORDERABLES Performing Organization Address City/State/ZIP Code Phon e Number [facility] documented in this encounter Visit Diagnoses Not on filedocumented in this encounter Care Teams Stem Cutter Relationship Specialty Start Date End Date Lovely Vicente MD PCP - General 04/16/[address] [place] [address] documented as of this encounter
--- OUTSIDE RECORDS SUMMARY | 2022-03-09 15:31 | XMS_ITS | Encounter Summary ---
:1945 Author Organization [facility] [place] [address] Care Team Providers Name Role Phone Lovely Vicente MD Primary Care Provider Reason for Referral Consultation (Routine) - Closed Specialty Diagnoses / Referred By Contact Referred To Contact Procedures Cardiac Rehabilitation Diagnoses S/P CABG x 3 Yuan Webber, Cardiac Rehab, [address] [place] CARDIOTHORACIC [address] [place] [address] Referral ID Status Reason Start Date Expiration Date Visits V isits Requested Authorized [id number] Closed Consult, 07/14/2017 01/10/2018 36 36 Test & Treat Reason for Visit Auth/Cert Specialty Diagnoses / Procedures Referred By Contact Refer red To Contact Diagnoses STEMI (ST elevation myocardial infarction) NSTEMI STEMI Procedures CARDIAC CATHETERIZATION NAYE IPI Referral ID Status Reason Start Date Expiration Date Visits Requ ested Visits Authorized [id number] 1 1 Encounter Details Date Type Department Care Team Description 07/05/2017 - Hospital Encounter Cardiac Special Daphne Shahid MD [facility] [place] [address] Non-ST elevation myocardial infarction ( NSTEMI); 07/14/2017 Care Unit Yuan Preciado MD [facility] DR CARDIOTHOR[place] [address] S/P CABG x 3 [place] [id number] Social History Tobacco Use Types Packs/Day Years [...] Patient Age: 72 y.o. Birthdate: 1945 Language: Stateless Race: White Ethnicity: Not nor Admit Date: [...] , @ 1:20p Patient to follow-up with Employment Case Manager/heart failure team in one week. An appointment will be made for you. You may call [phone] Patient to follow-up with Cardiac Surgery, Dr. Yuan Webber, in ~ 4 weeks with CXR, EKG. Inpatient Provider Contact Information: [facility] [place] [facility] [place] [address] FAX [phone] Discharge Diagnoses (Hospital Problems) Primary Diagnoses: CAD [...] SETUP performed by Manny Mcknight MD at [facility] MAIN OR ??? PRO CABG, ARTERIAL, SINGLE N/A 07/07/2017 @CABG, USING ARTERIAL GRAFT;SINGLE ARTERIAL GRAFT (WRVU 33.75) performed by Yuan Webber MD at [facility] MAIN OR ??? PRO CABG, ARTERY-VEIN, TWO N/A 07/07/2017 @CABG, TWO VENOUS GRAFTS & ARTERIAL GRAFT (WRVU 7.93) performed by Yuan Webber MD at [facility] MAIN OR ??? PRO COLONOSCOPY, REMV LESN, SNARE 01/16/2014 COLONOSCOPY, POLYPECTOMY, REMOVAL LESION BY SNARE performed by Nohemi Jaimes MD at [facility] ENDOSCOPY ??? PRO ENDOSCOPY W/VIDEO-ASST VEIN HARVEST, CABG Right 07/07/2017 ENDOSCOPIC HARVEST VEIN(S) FOR CABG (WRVU 0.31) performed by Yuan Webber MD at [facility] MAIN OR ??? PRO THYROIDECTOMY 03/28/2013 THYROIDECTOMY, TOTAL OR COMPLETE performed by Manny Mcknight MD at [facility] MAIN OR Prior To Admission Medications Prescriptions Prior to Admission Medication Sig Dispense Refill Last Dose ??? levothyroxine (SYNTHROID) 175 mcg Tablet Take 1 tablet by mouth daily. 90 tablet 3 07/05/2017 [id number] ??? ascorbic acid, vitamin C, (VITAMIN C) [...] he was taken emergently to the label pinker for an ongoing STEMI. An IABP was [...] not take or discontinue any prescription or jmhj-eki-vizjufw medications without asking your doctor or pharmacist [...] Yuan Webber and/or the Cardiac Surgery Physician Behaviour Support Teacher Team may be reached at . Weight: [...] Dr. Yuan Webber. You may use a [place] Track or treadmill but avoid any pulling [...] friends, go to a movie, go to evangelical, etc. Heavy activities: No hunting, skiing, jogging, snow shoveling, snowmobiling, lawn mowing, swimming, golf or tennis until after your return appointment with the surgeon. Do not ride motorcycles, Pixelated's tractors or horses. Avoid the use of [...] should resume a low fat, low cholesterol, Norwegian Heart Association Diet/Diabetic diet. Driving: No driving [...] , @ 1:20p Patient to follow-up with Employment Case Manager/heart failure team in one week. Appointment will be made for you. You may call [phone] Patient to follow-up with Cardiac Surgery, Dr. Yuan Webber, in ~ 4 weeks with CXR, EKG. Cardiac Rehabilitation: Gregory Hoang was seen today regarding participation in the outpatient Phase 2 Cardiac Rehabilitation at [facility]. The patient agrees to a referral to this program. The referral will be sent at discharge and the patient should be contacted by the Program within 1- 2 weeks from discharge. ?? Future Appointments and Orders Future Appointments Provider Department Dept Phone 09/07/2017 3:00 PM LAB, THREE L Lab 3L [facility] [phone] 09/07/2017 4:00 PM Luz Prescott MD Endocrinology at [place] [phone] Future Orders Complete By Expires EKG 12 Lead [EKG1 Custom] 08/14/2017 02/13/2018 Process Instructions: Scheduling Instructions: Questions: Which location will this be performed?: [place] Is a rhythm strip needed?: No If EKG Reason is Pre-op Evaluation, indicate diagnosis for surgery.: XR Chest PA & Lateral (Generic) [[id number] Custom] 08/14/2017 02/13/2018 Process Instructions: Scheduling Instructions: Questions: Where will study be performed?: [place] [facility] Portable exam?: Reason for exam and clinical history: CABG x 3 Other pertinent information: Stat read required?: Date of injury if applicable: Requested Time: Referral to Cardiac Rehab [LFA603 Custom] As directed Process Instructions: If no progress note charted, please enter Clinical details in comments. Scheduling Instructions: Questions: My question or request is: s/p CABG. Cardiac rehab at [facility] Referral to Home Health - at DISCHARGE [HDY7223 CPT(R)] As directed Process Instructions: Scheduling Instructions: Comments: DOCUMENTATION FOR VNA SERVICES (INCLUDING THOSE PATIENTS WITH MEDICARE COVERAGE REQUIRING HOME VNA SERVICES AND/OR HOSPICE SERVICES) PATIENT'S LOCATION: Gregory Hoang [address] [place] [address] [place] [phone] (home) Telephone Information: Piece Dye Worker's Name: self In discussion with the attending physician, it is certified that this patient is under their care and that they, or a Nurse Practitioner, or Physician Behaviour Support Teacher who is working directly with them, had [...] [facility] ([facility] [place] [employer]-is in [place] PHONE: [phone] FAX: [phone] RN orders: Cardiopulmonary assessment, incisional assessment, assess vital signs, assessment of rehab progress, medication management and effectiveness, home safety evaluation. Please draw INR if indicated and send result to:Dr Vicente [phone] PT ORDERS: Continue rehab for endurance, gait stability and strength with mobility and transfers. Home safety evaluation. Home exercise program if appropriate. Start of Care Date:24-48 hours after discharge SPECIAL INSTRUCTIONS: For any follow up questions, needs, or issues please call the Cardiac Surgery Office at [phone] FOR MEDICARE ONLY: (please delete this section [...] OR AFTER 07/17/2017 Signed: Martha Teague APRN [facility] [place] [facility] [place] [address] FAX [phone] Date: 07/14/2017 CC: MD Ivania Cr Betsy, [place] [address] [place] [phone] documented in this encounter Discharge Instructions Discharge [...] not take or discontinue any prescription or jvjr-fid-yiaoxcn medications without asking your doctor or pharmacist [...] juice or regular (not diet) soda 6 [employer] small box of raisins 4 glucose tablets [...] Yuan Webber and/or the Cardiac Surgery Physician Behaviour Support Teacher Team may be reached at . ?? [...] Dr. Yuan Webber. You may use a [place] Track or treadmill but avoid any pulling [...] friends, go to a movie, go to evangelical, etc. ?? Heavy activities: No hunting, skiing, jogging, snow shoveling, snowmobiling, lawn mowing, swimming, golf or tennis until after your return appointment with the surgeon. Do not ride motorcycles, Pixelated'Nevolution tractors or horses. Avoid the use of [...] should resume a low fat, low cholesterol, Norwegian Heart Association Diet/Diabetic diet. ?? Driving: No [...] @ 1:20p ?? Patient to follow-up with Employment Case Manager/heart failure team in one week. An appointment has been made for you, you can call [phone] ?? Patient to follow-up with Cardiac Surgery, Dr. Yuan Webber, in ~ 4 weeks with CXR, EKG. ? Cardiac Rehabilitation: Gregory Hoang??was seen today regarding participation in the outpatient Phase 2 Cardiac Rehabilitation at [facility]. ?? The patient agrees to a referral to this program.? The referral will be sent at discharge and the patient should be contacted by the Program within 1- 2 weeks from discharge. ? Future Appointments and Orders Future Appointments Provider Department Dept Phone ?? 09/07/2017 3:00 PM LAB, THREE L Lab 3L [facility] [phone] ?? 09/07/2017 4:00 PM Luz Prescott MD Endocrinology at [place] [phone] Future Orders Complete By Expires ?? EKG 12 Lead [EKG1 Custom] 08/14/2017 02/13/2018 ?? Process Instructions: ? Scheduling Instructions: ? Questions: ? Which location will this be performed?: [place] ?? Is a rhythm strip needed?: No ?? If EKG Reason is Pre-op Evaluation, indicate diagnosis for surgery.: ?? XR Chest PA & Lateral (Generic) [[id number] Custom] 08/14/2017 02/13/2018 ?? Process Instructions: ? Scheduling Instructions: ? Questions: ? Where will study be performed?: [place] [facility] ?? Portable exam?: ?? Reason for exam and clinical history: CABG x 3 ?? Other pertinent information: ?? Stat read required?: ?? Date of injury if applicable: ?? Requested Time: ?? Referral to Cardiac Rehab [QYA445 Custom] As directed ? Process Instructions: ?? If no progress note charted, please enter Clinical details in comments. ?? Scheduling Instructions: ? Questions: ? My question or request is: s/p CABG. Cardiac rehab at [facility] ? Arrangements for VNA/home care: As [...] dose. Starting tomorrow, all dosing per Dr Vicenet acetaminophen Take 2 tablets by 30 tablet [...] RN - 07/14/2017 2:34 PM EST The patient/apprenticeship representative has been provided a list of Home Health Agencies/DME vendors which serve their preferred geographic area. A letter describing our affiliations was reviewed with them and theywere educated about their right to choose where referrals are placed. Patient requests referral to [facility] PHONE: [phone] FAX: [phone] Expected date of discharge: 07/14 Referral routed to the Perinatal Educator for matching with agency/vendor and to [...] [facility] Endocrinology Diabetes Management Pager [phone] 20 minutes of this 35 minute visit was spent with the patient in counseling on diabetes and treatment plan, reviewing all glucose and insulin data as well as relevant laboratory results with the patient, and coordination of care on the inpatient unit including nursing and primary team. Zulma Andres, RN - 07/14/2017 10:30 AM EST The patient/apprenticeship representative has been provided a list of Home Health Agencies/DME vendors which serve their preferred geographic area. A letter describing our affiliations was reviewed with them and theywere educated about their right to choose where referrals are placed. Patient requests referral to : Yasmani Munguia ([facility] [place] [facility]-is in [place] PHONE: [phone] FAX: [phone]. Expected date of discharge: 07/14/17 Referral routed to the Perinatal Educator for matching with agency/vendor and to [...] hours. If BG remains greater than 240, obzedd22 units (no more than three times) &??call [...] #6 s/p CABG X3. FSBG 80 at [place], reports no symptoms but did drink some [...] needed as he recovers. Will ask JENSEN Clalahan to see prior to discharge. PLAN Lantus:50 units daily Lispro 1:8 insulin to carbohydrate ratio Lispro for correction q 4 hours using CF20 sliding scale Will continue to follow Katerin Azul APRN [facility] Endocrinology Diabetes Management Pager [phone] 15 minutes of this 25 minute visit [...] of infiltration/extravasation Discussed plan of care with HOTEL RECEPTIONIST and RN. Elevate exrtemity and apply intermittent Warm compresses. Name of MD contacted Dr. Shaw Brown 07/13/2017 @ 0697 Name of RN contacted Ale Rangel RN Name of Pharmacist if consulted NA Name of Plastics MD ( if consulted) NA (Mandatory photo for infiltrations/ extravasations scoring a stage 2 or greater, but recommended forstage 1)( include measuring tape and identifier in the photo) LAVENDER FARM WORKER CARING FOR THIS PATIENT WILL CONTINUE TO [...] measuring tape and identifier in the photo) LAVENDER FARM WORKER CARING FOR THIS PATIENT WILL CONTINUE TO [...] regard to both infiltrates addressed by this physician underwriter.All of Mr. Hoang's responses were entirely appropriate. Images of infiltrates attached here. Martha Sharp APRN - 07/13/2017 8:01 AM EST Cardiac Surgery Progress Note: ID: [id number] 72 year old male POD#6 s/p CABGx3 [...] discharge. ?? I have met with the patient/apprenticeship representative to discuss discharge planning needs. I have provided the [facility], Office of Care Management letter from the Hat Braider pertaining to rehab referrals. I have also provided a letter describing our affiliations within the [facility] and educated them about their right to choose where referrals are placed. ?? I reviewed the different levels of rehab including SNF, swing, acute and LTAC with the patient/apprenticeship representative. ?? The patient/apprenticeship representative has been provided a list of facilities within their preferred geographic area. ?? I have requested that the patient/apprenticeship representative provide at least three choices for referral. ?? The patient/apprenticeship representative have requested referrals to: ?? 1. . ?? 2. [facility] ?? 3. More to be entered ?? Expected date of discharge: 07/14 Note routed to Perinatal Educator who will communicate referrals to facilities [...] hours. If BG remains greater than 240, syetrv02 units (no more than three times) & call for new basal insulin orders. ??If less than 240 after two hours, give no insulin and resume prior schedule. Will continue to follow Katerin Patel. STACIE Azul [facility] Endocrinology Diabetes Management Pager [phone] 20 minutes of this 35 minute visit was spent with the patient in counseling on diabetes and treatment plan, reviewing all glucose and insulin data as well as relevant laboratory results with the patient, and coordination of care on the inpatient unit including nursing and primary team. Makayla Stevenson APRN - 07/12/2017 9:52 AM EST Cardiac Surgery Progress Note: ID: [id number] 72 year old male POD#5 s/p CABGx3 [...] 07/11/2017 7:18 PM EST Patient arrived from [facility]. VSS. MSI dressing pulled off with [...] hours. If BG remains greater than 240, zpuzts07 units (no more than three times) & [...] AM EST Cardiac Surgery Progress Note: ID: [id number] 72 year old male POD#4 s/p CABGx3 [...] hours. If BG remains greater than 240, ycspgb84 units (no more than three times) & [...] AM EST Cardiac Surgery Progress Note: ID: [id number] 72 year old male POD#3 s/p CABGx3 [...] Gas) No results found for: PHART, PO2ART, ZVO0FYI Assessment/Plan: 72 year old male POD#3 s/p [...] Encounter Note Patient Name: Gregory Hoang : [id number] MR#: [id number] Admit Date: 07/05/2017 4:20 PM Hospital Day 4 days Narrative: Patient was sitting in chair, hugging heart pillow, opened his eyes, nodding to come into room Assessment: Patient was sleepy. Intervention and Outcome: Introduced substance abuse clinician services and patient reached his hand out in appreciation. Follow-up: Paraffin Plant Operator remains available for support. Time in Direct [...] 10:45 AM EST Report given to staff assistant to cover care Maddison Cee PA - 07/09/2017 9:00 AM EST Cardiac Surgery Progress Note: ID: [id number] 72 year old male POD#2 s/p CABGx3 [...] of Cardiac Surgery Date: 07/09/2017 Magnolia Santiago [facility] - 07/09/2017 1:33 AM EST [...] when IABP d/c'ed. Gretchen Carolina, PT Pager [phone] Maddison Cee PA - 07/08/2017 11:27 AM EST Cardiac Surgery Progress Note: ID: [id number] 72 year old male POD#1 s/p CABGx3 [...] unit. NICK SEGAL MD 07/08/2017 Jay Munoz [facility] - 07/08/2017 4:33 AM EST [...] in place in R femoral. No hematoma. PIE BAKER- Intact Psych- Anxious Skin- Dry, no peripheral [...] intact. IABP in place in R femoral. PIE BAKER- Intact Psych- Anxious Skin- Dry, no peripheral [...] Ramírez MD, PGY-1 Cardiology S1 (pgr. 301) . CARDIOLOGY ATTENDING NOTE Patient: Gregory Hoang [...] note for details. DAPHNE SHAHID MD Pager [phone] Jet Mckenna MD - 07/05/2017 6:48 PM EST Preliminary Cardiac Catheterization Procedure Note: Procedure(s) performed: Left heart cath, IABP insertion Access: Right SLIDE MAKER-->8fr IABP A time-out was conducted prior to [...] Heparin gtt maintained. Pt transferred to label pinker. documented in this encounter H&P Notes Daphen Shahid MD - 07/05/2017 6:08 PM EST CARDIOLOGY HISTORY & PHYSICAL EXAM Date of Admission: 07/05/2017 ( Hospital Day 0 days ) Responsible Attending: Daphne Shahid MD PCP: Lovely Vicente MD PCP#: [phone] Patient Active Problem List Diagnosis Code ??? [...] significant valvular disease. Taken to the label pinker urgently for ongoing STEMI. [facility] Labs: INR 1.0 WBC 5.88 Hgb [...] I/O - s/p lasix in the label pinker, redose to aim net neg 1L by [...] - ISS - hold metformin - f/u [facility] #Home Meds - continue levothyroxine 175mcg - CPAP at night # Routine - DVT PPx: heparin drip - Diet: NPO - Code Status: FULL - Dispo: [facility] Cedric Bey MD Internal Medicine, PGY-2 Cardiology S1, Team Pager # [phone] CARDIOLOGY ATTENDING NOTE Patient: Gregory Hoang Date [...] amenable for PCI. DAPHNE SHAHID MD Pager [phone] documented in this encounter Miscellaneous Notes Consult Note - Daphne Shahid MD - 07/14/2017 11:46 AM EST Heart Failure Service Inpatient Consult Note Gregory Hoang Date of : 1945 Age: 72 y.o. Today's date: 07/14/17 PCP: Lovely Vicente MD BUSINESS EXECUTIVE: None Place of Service: [facility] [place] Reason for Consult: Dr. [...] SETUP performed by Manny Mcknight MD at [facility] MAIN OR ??? PRO CABG, ARTERIAL, SINGLE N/A 07/07/2017 @CABG, USING ARTERIAL GRAFT;SINGLE ARTERIAL GRAFT (WRVU 33.75) performed by Yuan Webber MD at [facility] MAIN OR ??? PRO CABG, ARTERY-VEIN, TWO N/A 07/07/2017 @CABG, TWO VENOUS GRAFTS & ARTERIAL GRAFT (WRVU 7.93) performed by Yuan Webber MD at [facility] MAIN OR ??? PRO COLONOSCOPY, REMV LESN, SNARE 01/16/2014 COLONOSCOPY, POLYPECTOMY, REMOVAL LESION BY SNARE performed by Nohemi Jaimes MD at [facility] ENDOSCOPY ??? PRO ENDOSCOPY W/VIDEO-ASST VEIN HARVEST, CABG Right 07/07/2017 ENDOSCOPIC HARVEST VEIN(S) FOR CABG (WRVU 0.31) performed by Yuan Webber MD at [facility] MAIN OR ??? PRO THYROIDECTOMY 03/28/2013 THYROIDECTOMY, TOTAL OR COMPLETE performed by Manny Mcknight MD at [facility] MAIN OR Outpt Meds: Current [...] following studies: EKG 07/14/17: NSR 75 bpm, CHEMICAL MILLING PROCESSOR anterior infarct, LAD CXR 07/11/17: FINDINGS: Sternotomy wires. The patient has been extubated, left chest tube removed, and [place]-Suzi catheter removed since the 07/07/2017 study. Atelectasis [...] was discussed with Zehra. Jaden Kelley MD Template Reproduction Technician Pager [phone] CARDIOLOGY ATTENDING NOTE Patient: Gregory Hoang Date [...] heart failure clinic. DAPHNE SHAHID MD Pager [phone] Plan of Care - Alden Chavarria, INDUCTOR TESTER - 07/14/2017 11:35 AM EST Problem: Patient [...] Discharge Disposition: home with assist Alden Chavarria, INDUCTOR TESTER Pager: [phone] Inpatient Physical Therapy Problem: Acute Rehab Services [...] sit/sit to supine -- Bed Mobility Goal, [place] Level supervision required -- Bed Mobility Goal, [...] - 3 days -- Gait Training Goal, [place] Level supervision required -- Gait Training Goal, [...] days -- Transfer Training Goal, Activity Type wfo-vv-vcdiv/ytdls-cn-wdt;uqr-ov-kadkl/pqavo-xj-jop;toilet -- Transfer Train Goal, [place] Level supervision required -- Transfer Training Goal, [...] keeping present for 2 days per family. Process Improvement Engineer noted of frustrations, house keeping sent to room. Patient offered showered twice, refused. at bedside, frustrated that shower not complete, informed that patient had refused several times. requesting to see TROMBONE SLIDE ASSEMBLER, paged sent to Martha, will come to bedside (middle of consult). not willing to wait, Martha notified that family had gone home. Encouraged to come for morning rounds a t 8am. Diabetes team at bedside - insulin adjustments made. Call cabello in reach. Continue to monitor. PLAN MOVING FORWARD: Ambulate, dressing changes BID, Please change drsg at 4am per Martha TROMBONE SLIDE ASSEMBLER request. INDIVIDUALIZED FALL PREVENTION INTERVENTIONS: Patient-specific fall [...] on the lower side, 60ml of [place] juice given after a FS of 80. [...] Conf 07/13/17 0502 Interdisciplinary Rounds/Family Conf Participants human services case manager;dietitian/nutrition services;nursing;occupational therapy;patient;pharmacy;physical therapy;physician Plan of [...] Anticipated Discharge Disposition: home with assist Pager: [phone] CLARISSA SEGAL, PT 07/12/2017 Physical Therapy Rehabilitation [...] to sit/sit to supine Bed Mobility Goal, [place] Level supervision required Bed Mobility Goal, Additional Goal adheres to psternal precautions for transfer Goal: Gait Training Goal Stand Alone Therapy Goal Outcome: Ongoing (Interventions Implemented as Appropriate) 07/12/17 1225 Gait Training Goal Gait Training Goal, Date Established 07/12/17 Gait Training Goal, Time to Achieve 2 - 3 days Gait Training Goal, [place] Level supervision required Gait Training Goal, Assist [...] 3 days Transfer Training Goal, Activity Type bog-lb-vkxbt/wwkpx-us-cci;gkz-yc-bveyk/evwia-ni-drr;toilet Transfer Train Goal, [place] Level supervision required Transfer Training Goal, Additional Goal adheres to sternal precautions during transfer Consult Note - Octavia Vaughn RN - 07/12/2017 10:50 AM EST [facility] CARDIAC REHABILITATION Gregory Hoang was seen today regarding participation in the outpatient Phase 2 Cardiac Rehabilitation at [facility]. The patient agrees to a referral [...] IV site, amio to other piv and ACETYLENE TORCH OPERATOR at bedside to help assess, IV [...] Outcome: Ongoing (Interventions Implemented as Appropriate) 07/11/17199907/11/17200907/12/17 [facility] Daily Care Interventions Self-Care Promotion -- [...] staff, he stood and marched in place. [place]cock weak, wanting to sit back down. Remained [...] Outcome: Ongoing (Interventions Implemented as Appropriate) 07/05/17 3852 Mutuality/Individual Preferences What Anxieties, Fears or Concerns [...] Health/Prescription Coverage: Primary Insurance: MEDICARE Secondary Insurance: [employer] MD Prescription Coverage: yes Preferred Pharmacy: [facility] MD Other: none Primary Care Provider: Lovely Vicente MD [phone] Patient/Caregiver Goals of Treatment:live and get my breath back Potential Needs for Transition of Care: Rehab[facility]SNF: [facility]; [facility] Home Health: NA DME: TBD Dialysis: na Community Resources: available Transportation: yes Other: none Anticipated Barriers to Discharge/Special Considerations: none Plan: Likely SNF Rehab before home A member of the Care Management team will continue to monitor progress, follow for continuity of care and assist with transition of care planning. ERLIN Weiss Pager: [phone] Consult Note - Katerin Azul RN - [...] management and to provide a review of group home diabetes care. Diabetes History: Gregory Hoang [...] patient W/E coverage, Dr. Jeane Tatum, pager [phone] Katerin Patel. STACIE [facility] Diabetes Management Pager [phone] Plan of Care - Stephanie Godoy RN [...] Operative Note Patient Name: Gregory Hoang : [id number] MR#: [id number] Case Date: 07/07/2017 Surgeon: Surgeon(s) and Role: * Yuan Webber MD - Primary * Michael Drake PA - Physician Behaviour Support Teacher * Linda Flores PA - Physician Behaviour Support Teacher Preoperative diagnosis: 3VD Postoperative diagnosis: CAD, severe [...] Operative Note Patient Name: Gregory Hoang : [id number] MR#: [id number] Case Date: 07/07/2017 Surgeon: Surgeon(s) and Role: * Yuan Webber MD - Primary * Michael Drake PA - Physician Behaviour Support Teacher * Linda Flores PA - Physician Behaviour Support Teacher Preoperative diagnosis: 3VD Postoperative diagnosis: CAD, severe [...] code status: Full Code Katty Jovani, MS3 Replaced By [facility] [employer] [facility] Cardiology S1 (Pager [phone]) Plan of Care - Emelia Ibarra RN [...] SETUP performed by Manny Mcknight MD at [facility] MAIN OR ??? PRO COLONOSCOPY, REMV LESN, SNARE 01/16/2014 COLONOSCOPY, POLYPECTOMY, REMOVAL LESION BY SNARE performed by Nohemi Jaimes MD at [facility] ENDOSCOPY ??? PRO THYROIDECTOMY 03/28/2013 THYROIDECTOMY, TOTAL OR COMPLETE performed by Manny Mcknight MD at [facility] MAIN OR Social History: Social [...] with other involved physicians Yuan Webber MD [phone] Med Student Progress Note - Jovani Katty [...] BiPAP - s/p lasix in the label pinker, was net -1.5L - s/p plavix load, [...] FULL - Dispo: CVCC Katty Hahn, M3 [facility] Cardiology S1 (Pager [phone]) Plan of Care - Stephanie Godoy RN [...] urinal without difficulty. Lasix given in label pinker, 1.4 L out at this time. Pt [...] Nobles MD [facility] CARDIOLOGY [place], [place] [address] ( lissa) 06/10/2022 Office Visit Dermatology Laura Scherer MD [facility] [address], [place] [address] (Wo lissa) Scheduled Orders Name [...] procedure are i n the results section. IT APPLICATION DEVELOPMENT MANAGER SCAN 07/15/2017 12:00 Res ults for [...] Yes 07/07/2017 1:35 [facility] 7.93) @[facility], USING ARTERIAL [...] 4:55 Results f or this ([facility]) PM EST procedure [...] [place] at 08/19/2017 10:30 AM Martha Teague REVIEW CONSULTANT IMG DX ORDERABLES SCAN DOC: IT APPLICATION DEVELOPMENT MANAGER (07/15/2017 12:00 AM EST) Narrative 07/15/2017 [...] Glucose 186 65 - [address] [facility] Comment: Supplemental ranges: <140 mg/dL before meals <180 mg/dL all other times of the day Specimen Anatomical Collection Method Collection Time Receive d Time (Source) Location / / Volume Laterality Blood specimen 07/14/2017 11:56 7 (specimen) AM EST 11:56 AM EST Yuan Webber MD POINT OF CARE TEST ORDERABLE S Performing Organization Address City/State/ZIP [place] [address] POCT Glucose (07/14/2017 7:52 AM EST) athologist Signature POC Glucose 126 65 - 199 [facility] Comment: Supplemental ranges: <140 mg/dL before meals <180 mg/dL all other times of the day Specimen Anatomical Collection Method Collection Time Receive d Time (Source) Location / / Volume Laterality Blood specimen 07/14/2017 7:52 AM 017 7:52 (specimen) EST AM EST Yuan Webber MD POINT OF CARE TEST ORDERABLE S Performing Organization Address City/State/Z[place] [address] (ABNORMAL) Prothrombin Time (07/14/2017 [...] [facility]/ZIP [place] [address] Potassium (07/14/2017 4:46 AM EST) athologist Signature Potassium 4.3 3.5 - 5.0 [facility] mmol/L [facility] Comment: Please note: ??Patients [...] [facility]/ZIP [place] [address] POCT Glucose (07/14/2017 4:34 AM EST) athologist Signature POC Glucose 115 65 - 199 [facility] mg/dL [facility] Comment: Supplemental ranges: <140 [...] [facility]/ZIP Code Phon e Number [address] POCT Glucose (07/13/2017 11:33 PM EST) athologist Signature POC Glucose 132 65 - 199 [facility] mg/dL [facility] Comment: Supplemental ranges: <140 mg/dL before meals <180 mg/dL all other times of the day Specimen Anatomical Collection Method Collection Time Receive d Time (Source) Location / / Volume Laterality Blood specimen 07/13/2017 11:33 7 (specimen) PM EST 11:33 PM EST Yuan Webber MD POINT OF CARE TEST ORDERABLE S Performing Organization Address City/State/ZIP [place] [address] POCT Glucose (07/13/2017 9:25 PM EST) athologist Signature POC Glucose 121 65 - 199 [place] mg/dL [facility] Comment: Supplemental ranges: <140 mg/dL before meals <180 mg/dL all other times of the day Specimen Anatomical Collection Method Collection Time Receive d Time (Source) Location / / Volume Laterality Blood specimen 07/13/2017 9:25 PM 017 9:25 (specimen) EST PM EST Yuan Webber MD POINT OF CARE TEST ORDERABLE S Performing Organization Address City/State/ZIP [place] [address] POCT Glucose (07/13/2017 4:55 PM EST) athologist Signature POC Glucose 79 65 - 199 [place] mg/dL [facility] Comment: Supplemental ranges: <140 mg/dL before meals <180 mg/dL all other times of the day Specimen Anatomical Collection Method Collection Time Receive d Time (Source) Location / / Volume Laterality Blood specimen 07/13/2017 4:55 PM 017 4:55 (specimen) EST PM EST Yuan Webber MD POINT OF CARE TEST ORDERABLE S Performing Organization Address City/State/ZIP [place] [address] POCT Glucose (07/13/2017 11:16 AM EST) athologist Signature POC Glucose 163 65 - 199 [facility] mg/dL [facility] Comment: Supplemental ranges: <140 mg/dL before meals <180 mg/dL all other times of the day Specimen Anatomical Collection Method Collection Time Receive d Time (Source) Location / / Volume Laterality Blood specimen 07/13/2017 11:16 7 (specimen) AM EST 11:16 AM EST Yuan Webber MD POINT OF CARE TEST ORDERABLE S Performing Organization Address City/State/ZIP [place] [address] POCT Glucose (07/13/2017 8:07 AM EST) athologist Signature POC Glucose 96 65 - 199 [facility] mg/dL [facility] Comment: Supplemental ranges: <140 [...] [facility]/ZIP [place] [address] (ABNORMAL) Prothrombin Time (07/13/2017 [...] Organization Address City/State/Z[place] [address] (ABNORMAL) Basic Metabolic Panel (non-fasting) (07/13/2017 4:26 AM EST) athologist Signature Glucose Lvl 95 65 - 199 [facility] mg/dL [facility] Comment: Diabetes: >=200 mg/dL [...] or in patients with acute kidney failure. [email or web address] Specimen Anatomical Collection Method Collection Time Receive d Time (Source) Location / / Volume Laterality Blood specimen 07/13/2017 4:26 AM 017 4:46 (specimen) EST AM EST Resulting Agency Comment Spec In Lab Makayla Wilson APRN CHEMISTRY ORDERABLES Performing Organization Address City/State/ZIP [place] [address] POCT Glucose (07/13/2017 3:52 AM EST) athologist Signature POC Glucose 93 65 - 199 [facility] mg/dL [facility] Comment: Supplemental ranges: <140 mg/dL before meals <180 mg/dL all other times of the day Specimen Anatomical Collection Method Collection Time Receive d Time (Source) Location / / Volume Laterality Blood specimen 07/13/2017 3:52 AM 017 3:52 (specimen) EST AM EST Yuan Webber MD POINT OF CARE TEST ORDERABLE S Performing Organization Address City/State/ZIP [place] [address] POCT Glucose (07/13/2017 12:21 AM EST) athologist Signature POC Glucose 80 65 - 199 [place] mg/dL [facility] Comment: Supplemental ranges: <140 mg/dL before meals <180 mg/dL all other times of the day Specimen Anatomical Collection Method Collection Time Receive d Time (Source) Location / / Volume Laterality Blood specimen 07/13/2017 12:21 7 (specimen) AM EST 12:21 AM EST Yuan Webber MD POINT OF CARE TEST ORDERABLE S Performing Organization Address City/State/ZIP Code Phon e Number [address] POCT Glucose (07/12/2017 8:22 PM EST) athologist Signature POC Glucose 119 65 - 199 [place] mg/dL [facility] Comment: Supplemental ranges: <140 mg/dL before meals <180 mg/dL all other times of the day Specimen Anatomical Collection Method Collection Time Receive d Time (Source) Location / / Volume Laterality Blood specimen 07/12/2017 8:22 PM 017 8:22 (specimen) EST PM EST Yuan Webber MD POINT OF CARE TEST ORDERABLE S Performing Organization Address City/State/ZIP Code Phon e Number [address] POCT Glucose (07/12/2017 4:02 PM EST) athologist Signature POC Glucose 114 65 - 199 [facility] mg/dL [facility] Comment: Supplemental ranges: <140 mg/dL before meals <180 mg/dL all other times of the day Specimen Anatomical Collection Method Collection Time Receive d Time (Source) Location / / Volume Laterality Blood specimen 07/12/2017 4:02 PM 017 4:02 (specimen) EST PM EST Yuan Webber MD POINT OF CARE TEST ORDERABLE S Performing Organization Address City/State/ZIP [place] [address] POCT Glucose (07/12/2017 11:28 AM EST) athologist Signature POC Glucose 164 65 - 199 [place] mg/dL [facility] Comment: Supplemental ranges: <140 mg/dL before meals <180 mg/dL all other times of the day Specimen Anatomical Collection Method Collection Time Receive d Time (Source) Location / / Volume Laterality Blood specimen 07/12/2017 11:28 7 (specimen) AM EST 11:28 AM EST Yuan Webber MD POINT OF CARE TEST ORDERABLE S Performing Organization Address City/State/ZIP [place] [address] POCT Glucose (07/12/2017 7:34 AM EST) athologist Signature POC Glucose 109 65 - 199 [place] mg/dL [facility] Comment: Supplemental ranges: <140 mg/dL before meals <180 mg/dL all other times of the day Specimen Anatomical Collection Method Collection Time Receive d Time (Source) Location / / Volume Laterality Blood specimen 07/12/2017 7:34 AM 017 7:34 (specimen) EST AM EST Yuan Webber MD POINT OF CARE TEST ORDERABLE S Performing Organization Address City/State/ZIP [place] [address] (ABNORMAL) Basic Metabolic Panel (non-fasting) (07/12/2017 4:11 AM EST) athologist Signature Glucose Lvl 92 65 - 199 [place] mg/dL [facility] Comment: Diabetes: >=200 mg/dL [...] or in patients with acute kidney failure. [email or web address] [email or web address] Specimen Anatomical Collection Method Collection Time Receive d Time (Source) Location / / Volume Laterality Blood specimen 07/12/2017 4:11 AM 017 8:57 (specimen) EST AM EST Resulting Agency Comment Spec In Lab Makayla Wilson APRN CHEMISTRY ORDERABLES Performing Organization Address City/State/ZIP [place] [address] (ABNORMAL) Prothrombin Time (07/12/2017 [...] Wilson STACIE HEMATOLOGY ORDERABLES Performing Organization Address City/[facility]/ZIP Code Phon e Number [address] Potassium (07/12/2017 4:11 AM EST) athologist Signature Potassium 3.8 3.5 - 5.0 [facility] mmol/L [facility] Comment: Please note: ??Patients [...] Wilson STACIE CHEMISTRY ORDERABLES Performing Organization Address City/[facility]/ZIP [place] [address] POCT Glucose (07/12/2017 4:10 AM EST) athologist Signature POC Glucose 90 65 - 199 [facility] mg/dL [facility] Comment: Supplemental ranges: <140 mg/dL before meals <180 mg/dL all other times of the day Specimen Anatomical Collection Method Collection Time Receive d Time (Source) Location / / Volume Laterality Blood specimen 07/12/2017 4:10 AM 017 4:10 (specimen) EST AM EST Yuan Webber MD POINT OF CARE TEST ORDERABLE S Performing Organization Address City/State/ZIP [place] [address] POCT Glucose (07/11/2017 11:57 PM EST) athologist Signature POC Glucose 98 65 - 199 [facility] mg/dL [facility] Comment: Supplemental ranges: <140 [...] [facility]/ZIP [place] [address] POCT Glucose (07/11/2017 8:32 PM EST) athologist Signature POC Glucose 146 65 - 199 [facility] mg/dL [facility] Comment: Supplemental ranges: <140 mg/dL before meals <180 mg/dL all other times of the day Specimen Anatomical Collection Method Collection Time Receive d Time (Source) Location / / Volume Laterality Blood specimen 07/11/2017 8:32 PM 017 8:32 (specimen) EST PM EST Yuan Webber MD POINT OF CARE TEST ORDERABLE S Performing Organization Address City/State/Z[place] [address] XR Chest PA & [...] e xtubated, left chest tube removed, and [place]-Suzi catheter removed since the study. Atelectasis at [...] e xtubated, left chest tube removed, and [place]-Suzi catheter removed since the study. Atelectasis at [...] POC Glucose 223 (H) 65 - [address] [facility] Comment: Supplemental ranges: <140 mg/dL before meals <180 mg/dL all other times of the day Specimen Anatomical Collection Method Collection Time Receive d Time (Source) Location / / Volume Laterality Blood specimen 07/11/2017 4:05 PM 017 4:05 (specimen) EST PM EST Yuan Webber MD POINT OF CARE TEST ORDERABLE S Performing Organization Address City/State/ZIP [place] [address] POCT Glucose (07/11/2017 11:55 AM EST) athologist Signature POC Glucose 176 65 - [address] [facility] Comment: Supplemental ranges: <140 mg/dL before meals <180 mg/dL all other times of the day Specimen Anatomical Collection Method Collection Time Receive d Time (Source) Location / / Volume Laterality Blood specimen 07/11/2017 11:55 7 (specimen) AM EST 11:55 AM EST Yuan Webber MD POINT OF CARE TEST ORDERABLE S Performing Organization Address City/State/ZIP [place] [address] POCT Glucose (07/11/2017 7:53 AM EST) athologist Signature POC Glucose 189 65 - 199 [place] mg/dL [facility] Comment: Supplemental ranges: <140 mg/dL before meals <180 mg/dL all other times of the day Specimen Anatomical Collection Method Collection Time Receive d Time (Source) Location / / Volume Laterality Blood specimen 07/11/2017 7:53 AM 017 7:53 (specimen) EST AM EST Yuan Webber MD POINT OF CARE TEST ORDERABLE S Performing Organization Address City/State/ZIP [place] [address] POCT Glucose (07/11/2017 4:22 AM EST) athologist Signature POC Glucose 151 65 - 199 [place] mg/dL [facility] Comment: Supplemental ranges: <140 mg/dL before meals <180 mg/dL all other times of the day Specimen Anatomical Collection Method Collection Time Receive d Time (Source) Location / / Volume Laterality Blood specimen 07/11/2017 4:22 AM 017 4:22 (specimen) EST AM EST Yuan Webber MD POINT OF CARE TEST ORDERABLE S Performing Organization Address City/State/ZIP Code Phon e Number [address] Potassium (07/11/2017 2:20 AM EST) athologist Signature Potassium 4.5 3.5 - 5.0 [facility] mmol/L [facility] Comment: Please note: ??Patients [...] Address City/State/ZIP Code Phon e Number [address] POCT Glucose (07/11/2017 12:17 AM EST) athologist Signature POC Glucose 162 65 - [address] [facility] Comment: Supplemental ranges: <140 [...] [facility]/ZIP Code Phon e Number [address] POCT Glucose (07/10/2017 8:47 PM EST) athologist Signature POC Glucose 191 65 - [address] [facility] Comment: Supplemental ranges: <140 mg/dL before meals <180 mg/dL all other times of the day Specimen Anatomical Collection Method Collection Time Receive d Time (Source) Location / / Volume Laterality Blood specimen 07/10/2017 8:47 PM 017 8:47 (specimen) EST PM EST Yuan Webber MD POINT OF CARE TEST ORDERABLE S Performing Organization Address City/[facility]/ZIP [facility] Phon e Number [address] POCT Glucose (07/10/2017 4:06 PM EST) athologist Signature POC Glucose 131 65 - 199 [place] mg/dL [facility] Comment: Supplemental ranges: <140 mg/dL before meals <180 mg/dL all other times of the day Specimen Anatomical Collection Method Collection Time Receive d Time (Source) Location / / Volume Laterality Blood specimen 07/10/2017 4:06 PM 017 4:06 (specimen) EST PM EST Yuan Webber MD POINT OF CARE TEST ORDERABLE S Performing Organization Address City/State/ZIP Code Phon e Number [address] POCT Glucose (07/10/2017 3:08 PM EST) athologist Signature POC Glucose 151 65 - 199 [place] [facility] mg/dL [facility] Comment: Supplemental ranges: <140 mg/dL before meals <180 mg/dL all other times of the day Specimen Anatomical Collection Method Collection Time Receive d Time (Source) Location / / Volume Laterality Blood specimen 07/10/2017 3:08 PM 017 3:08 (specimen) EST PM EST Yuan Webber MD POINT OF CARE TEST ORDERABLE S Performing Organization Address City/State/ZIP Code Phon e Number [address] POCT Glucose (07/10/2017 2:25 PM EST) athologist Signature POC Glucose 146 65 - 199 [place] mg/dL [facility] Comment: Supplemental ranges: <140 mg/dL before meals <180 mg/dL all other times of the day Specimen Anatomical Collection Method Collection Time Receive d Time (Source) Location / / Volume Laterality Blood specimen 07/10/2017 2:25 PM 017 2:25 (specimen) EST PM EST Yuan Webber MD POINT OF CARE TEST ORDERABLE S Performing Organization Address City/State/ZIP Code Phon e Number [address] POCT Glucose (07/10/2017 1:23 PM EST) athologist Signature POC Glucose 166 65 - 199 [place] mg/dL [facility] Comment: Supplemental ranges: <140 mg/dL before meals <180 mg/dL all other times of the day Specimen Anatomical Collection Method Collection Time Receive d Time (Source) Location / / Volume Laterality Blood specimen 07/10/2017 1:23 PM 017 1:23 (specimen) EST PM EST Yuan Webber MD POINT OF CARE TEST ORDERABLE S Performing Organization Address City/State/ZIP [place] [address] POCT Glucose (07/10/2017 11:52 AM EST) P athologist Signature POC Glucose 157 65 - 199 [facility] mg/dL [facility] Comment: Supplemental ranges: <140 mg/dL before meals <180 mg/dL all other times of the day Specimen Anatomical Collection Method Collection Time Receive d Time (Source) Location / / Volume Laterality Blood specimen 07/10/2017 11:52 7 (specimen) AM EST 11:52 AM EST Yuan Webber MD POINT OF CARE TEST ORDERABLE S Performing Organization Address City/State/ZIP [place] [address] POCT Glucose (07/10/2017 11:01 AM EST) P athologist Signature POC Glucose 158 65 - 199 [place] mg/dL [facility] Comment: Supplemental ranges: <140 mg/dL before meals <180 mg/dL all other times of the day Specimen Anatomical Collection Method Collection Time Receive d Time (Source) Location / / Volume Laterality Blood specimen 07/10/2017 11:01 7 (specimen) AM EST 11:01 AM EST Yuan Webber MD POINT OF CARE TEST ORDERABLE S Performing Organization Address City/State/ZIP Code Phon e Number [address] POCT Glucose (07/10/2017 9:54 AM EST) P athologist Signature POC Glucose 160 65 - 199 [facility] mg/dL [facility] Comment: Supplemental ranges: <140 mg/dL before meals <180 mg/dL all other times of the day Specimen Anatomical Collection Method Collection Time Receive d Time (Source) Location / / Volume Laterality Blood specimen 07/10/2017 9:54 AM 017 9:54 (specimen) EST AM EST Yuan Webber MD POINT OF CARE TEST ORDERABLE S Performing Organization Address City/State/ZIP Code Phon e Number [address] POCT Glucose (07/10/2017 8:58 AM EST) athologist Signature POC Glucose 183 65 - 199 [place] mg/dL [facility] Comment: Supplemental ranges: <140 mg/dL before meals <180 mg/dL all other times of the day Specimen Anatomical Collection Method Collection Time Receive d Time (Source) Location / / Volume Laterality Blood specimen 07/10/2017 8:58 AM 017 8:58 (specimen) EST AM EST Yuan Webber MD POINT OF CARE TEST ORDERABLE S Performing Organization Address City/State/ZIP Code Phon e Number [address] POCT Glucose (07/10/2017 8:01 AM EST) athologist Signature POC Glucose 173 65 - 199 [place] mg/dL [facility] Comment: Supplemental ranges: <140 mg/dL before meals <180 mg/dL all other times of the day Specimen Anatomical Collection Method Collection Time Receive d Time (Source) Location / / Volume Laterality Blood specimen 07/10/2017 8:01 AM 017 8:01 (specimen) EST AM EST Yuan Webber MD POINT OF CARE TEST ORDERABLE S Performing Organization Address City/State/ZIP [place] [address] POCT Glucose (07/10/2017 7:05 AM EST) athologist Signature POC Glucose 166 65 - 199 [place] mg/dL [facility] Comment: Supplemental ranges: <140 mg/dL before meals <180 mg/dL all other times of the day Specimen Anatomical Collection Method Collection Time Receive d Time (Source) Location / / Volume Laterality Blood specimen 07/10/2017 7:05 AM 017 7:05 (specimen) EST AM EST Yuan Webber MD POINT OF CARE TEST ORDERABLE S Performing Organization Address City/State/ZIP [place] [address] POCT Glucose (07/10/2017 6:00 AM EST) P athologist Signature POC Glucose 162 65 - 199 [facility] HOSPITAL mg/dL [facility] Comment: Supplemental ranges: <140 mg/dL before meals <180 mg/dL all other times of the day Specimen Anatomical Collection Method Collection Time Receive d Time (Source) Location / / Volume Laterality Blood specimen 07/10/2017 6:00 AM 017 6:00 (specimen) EST AM EST Yuan Webber MD POINT OF CARE TEST ORDERABLE S Performing Organization Address City/State/ZIP [place] [address] (ABNORMAL) Differential, Automated (07/10/2017 4:28 AM EST) Patholo gist Method Time Signature Neutrophils % 87.9 % [facility] Neutr Abs (ANC) 10.70 (H) 1.70 - [facility] 6.10 [facility] x10(3)/[facility] L LABORATORY Lymphocytes % 3.9 % [facility] Lymphocytes Abs 0.5 (L) 0.9 - 3.2 [facility] x10(3)/[facility] LABORATORY Monocytes % 7.0 % [facility] Monocyte Abs 0.8 0.3 - 0.9 [facility] x10(3)/[facility] LABORATORY Eosinophils % 0.3 % [facility] Eosinophils Abs 0.0 0.0 - 0.4 [facility] x10(3)/[facility] LABORATORY Basophils % 0.2 % [facility] Basophils Abs 0.0 0.0 - 0.1 [facility] x10(3)/[facility] LABORATORY Immature Gran % 0.70 [...] Organization Address City/State/ZIP [place] [address] (ABNORMAL) Hemogram (07/10/2017 4:28 AM EST) Analysis Performed At Patho logist Time Signature WBC 12.2 (H) 4.0 - 9.5 [facility] x10(3)/[facility] LABORATORY RBC 3.31 (L) 4.58 [facility]54 [facility] x10(6)/[facility] LABORATORY Hemoglobin 9.8 (L) 13.7 - [facility] 16.5 gm/dL [facility] Hematocrit 30.0 (L) 40.5 - [facility] 48.5 % [facility] MCV 90.6 82.9 - [facility] 93.1 [facility] LABORATORY MCH 29.6 27.5 - [place] RYAN 32.1 pg [facility] MCHC 32.7 32.0 [facility].7 gm/dL [facility] Platelets 135 (L) 145 - 357 [facility] x10(3)/[facility] LABORATORY RDWSD 50.8 (H) 36.0 - [facility] 45.0 [facility] RDWCV 15.4 (H) 11.4 [facility] 13.8 % [facility] MPV 10.0 7.6 - 12.9 [facility] LABORATORY nRBC % Auto 0.0 % [facility] nRBC Abs Auto 0.000 0.000 - [facility] 0.000 [facility] x10(3)/[facility] LABORATORY Specimen Anatomical Collection Method Collection Time Receive d Time (Source) Location / / Volume Laterality Blood specimen 07/10/2017 4:28 AM 017 4:36 (specimen) EST AM EST Resulting Agency Comment Spec In Lab Yuan Webber MD HEMATOLOGY ORDERABLES Performing Organization Address City/State/ZIP [place] [address] (ABNORMAL) Basic Metabolic Panel (non-fasting) (07/10/2017 4:28 AM EST) P athologist Signature Glucose Lvl 178 65 - 199 [facility] mg/dL [facility] Comment: Diabetes: >=200 mg/dL [...] or in patients with acute kidney failure. [email or web address] Specimen Anatomical Collection Method Collection Time Receive d Time (Source) Location / / Volume Laterality Blood specimen 07/10/2017 4:28 AM 017 4:36 (specimen) EST AM EST Resulting Agency Comment Spec In Lab Yuan Webber MD CHEMISTRY ORDERABLES Performing Organization Address City/State/ZIP Code Phon e Number [address] POCT Glucose (07/10/2017 4:26 AM EST) athologist Signature POC Glucose 176 65 - 199 [place] RYAN mg/dL [facility] Comment: Supplemental ranges: <140 [...] [facility]/ZIP [place] [address] (ABNORMAL) POCT Glucose (07/10/2017 3:06 AM EST) athologist Signature POC Glucose 204 (H) 65 - 199 [place] RYAN mg/dL [facility] Comment: Supplemental ranges: <140 [...] [facility]/ZIP [place] [address] (ABNORMAL) POCT Glucose (07/10/2017 2:10 AM EST) athologist Signature POC Glucose 203 (H) 65 - 199 [place] RYAN mg/dL [facility] Comment: Supplemental ranges: <140 mg/dL before meals <180 mg/dL all other times of the day Specimen Anatomical Collection Method Collection Time Receive d Time (Source) Location / / Volume Laterality Blood specimen 07/10/2017 2:10 AM 017 2:10 (specimen) EST AM EST Yuan Webber MD POINT OF CARE TEST ORDERABLE S Performing Organization Address City/State/ZIP Code Phon e Number [address] POCT Glucose (07/10/2017 1:09 AM EST) P athologist Signature POC Glucose 196 65 - 199 [place] [facility] mg/dL [facility] Comment: Supplemental ranges: <140 mg/dL before meals <180 mg/dL all other times of the day Specimen Anatomical Collection Method Collection Time Receive d Time (Source) Location / / Volume Laterality Blood specimen 07/10/2017 1:09 AM 017 1:09 (specimen) EST AM EST Yuan Webber MD POINT OF CARE TEST ORDERABLE S Performing Organization Address City/State/ZIP Code Phon e Number [address] POCT Glucose (07/10/2017 12:10 AM EST) athologist Signature POC Glucose 173 65 - 199 [place] mg/dL [facility] Comment: Supplemental ranges: <140 mg/dL before meals <180 mg/dL all other times of the day Specimen Anatomical Collection Method Collection Time Receive d Time (Source) Location / / Volume Laterality Blood specimen 07/10/2017 12:10 7 (specimen) AM EST 12:10 AM EST Yuan Webber MD POINT OF CARE TEST ORDERABLE S Performing Organization Address City/State/ZIP Code Phon e Number [address] POCT Glucose (07/09/2017 11:01 PM EST) athologist Signature POC Glucose 140 65 - 199 [place] mg/dL [facility] Comment: Supplemental ranges: <140 mg/dL before meals <180 mg/dL all other times of the day Specimen Anatomical Collection Method Collection Time Receive d Time (Source) Location / / Volume Laterality Blood specimen 07/09/2017 11:01 7 (specimen) PM EST 11:01 PM EST Yuan Webber MD POINT OF CARE TEST ORDERABLE S Performing Organization Address City/State/ZIP [place] [address] POCT Glucose (07/09/2017 10:05 PM EST) athologist Signature POC Glucose 144 65 - 199 [place] mg/dL [facility] Comment: Supplemental ranges: <140 mg/dL before meals <180 mg/dL all other times of the day Specimen Anatomical Collection Method Collection Time Receive d Time (Source) Location / / Volume Laterality Blood specimen 07/09/2017 10:05 7 (specimen) PM EST 10:05 PM EST Yuan Webber MD POINT OF CARE TEST ORDERABLE S Performing Organization Address City/State/ZIP Code Phon e Number [address] POCT Glucose (07/09/2017 9:31 PM EST) athologist Signature POC Glucose 121 65 - 199 [place] mg/dL [facility] Comment: Supplemental ranges: <140 mg/dL before meals <180 mg/dL all other times of the day Specimen Anatomical Collection Method Collection Time Receive d Time (Source) Location / / Volume Laterality Blood specimen 07/09/2017 9:31 PM 017 9:31 (specimen) EST PM EST Yuan Webber MD POINT OF CARE TEST ORDERABLE S Performing Organization Address City/State/ZIP Code Phon e Number [address] POCT Glucose (07/09/2017 9:03 PM EST) athologist Signature POC Glucose 98 65 - 199 [place] mg/dL [facility] Comment: Supplemental ranges: <140 mg/dL before meals <180 mg/dL all other times of the day Specimen Anatomical Collection Method Collection Time Receive d Time (Source) Location / / Volume Laterality Blood specimen 07/09/2017 9:03 PM 017 9:03 (specimen) EST PM EST Yuan Webber MD POINT OF CARE TEST ORDERABLE S Performing Organization Address City/State/ZIP [place] [address] POCT Glucose (07/09/2017 8:09 PM EST) athologist Signature POC Glucose 117 65 - 199 [place] RY[place] mg/dL [facility] Comment: Supplemental ranges: <140 mg/dL before meals <180 mg/dL all other times of the day Specimen Anatomical Collection Method Collection Time Receive d Time (Source) Location / / Volume Laterality Blood specimen 07/09/2017 8:09 PM 017 8:09 (specimen) EST PM EST Yuan Webber MD POINT OF CARE TEST ORDERABLE S Performing Organization Address City/State/ZIP [place] [address] POCT Glucose (07/09/2017 5:40 PM EST) athologist Signature POC Glucose 155 65 - 199 [place] mg/dL [facility] Comment: Supplemental ranges: <140 mg/dL before meals <180 mg/dL all other times of the day Specimen Anatomical Collection Method Collection Time Receive d Time (Source) Location / / Volume Laterality Blood specimen 07/09/2017 5:40 PM 017 5:40 (specimen) EST PM EST Yuan Webber MD POINT OF CARE TEST ORDERABLE S Performing Organization Address City/State/ZIP [place] [address] POCT Glucose (07/09/2017 4:24 PM EST) athologist Signature POC Glucose 164 65 - 199 [place] RY[place] mg/dL [facility] Comment: Supplemental ranges: <140 mg/dL before meals <180 mg/dL all other times of the day Specimen Anatomical Collection Method Collection Time Receive d Time (Source) Location / / Volume Laterality Blood specimen 07/09/2017 4:24 PM 017 4:24 (specimen) EST PM EST Yuan Webber MD POINT OF CARE TEST ORDERABLE S Performing Organization Address City/State/ZIP [place] [address] POCT Glucose (07/09/2017 3:19 PM EST) athologist Signature POC Glucose 166 65 - 199 [place] mg/dL [facility] Comment: Supplemental ranges: <140 mg/dL before meals <180 mg/dL all other times of the day Specimen Anatomical Collection Method Collection Time Receive d Time (Source) Location / / Volume Laterality Blood specimen 07/09/2017 3:19 PM 017 3:19 (specimen) EST PM EST Yuan Webber MD POINT OF CARE TEST ORDERABLE S Performing Organization Address City/State/ZIP [place] [address] POCT Glucose (07/09/2017 2:26 PM EST) athologist Signature POC Glucose 179 65 - 199 [place]HA[place] mg/dL [facility] Comment: Supplemental ranges: <140 mg/dL before meals <180 mg/dL all other times of the day Specimen Anatomical Collection Method Collection Time Receive d Time (Source) Location / / Volume Laterality Blood specimen 07/09/2017 2:26 PM 017 2:26 (specimen) EST PM EST Yuan Webber MD POINT OF CARE TEST ORDERABLE S Performing Organization Address City/State/ZIP [place] [address] (ABNORMAL) POCT Glucose (07/09/2017 1:29 PM EST) athologist Signature POC Glucose 210 (H) 65 - 199 [place] mg/dL [facility] Comment: Supplemental ranges: <140 mg/dL before meals <180 mg/dL all other times of the day Specimen Anatomical Collection Method Collection Time Receive d Time (Source) Location / / Volume Laterality Blood specimen 07/09/2017 1:29 PM 017 1:29 (specimen) EST PM EST Yuan Webber MD POINT OF CARE TEST ORDERABLE S Performing Organization Address City/State/ZIP Code Phon e Number [address] POCT Glucose (07/09/2017 12:20 PM EST) P athologist Signature POC Glucose 172 65 - 199 [place] mg/dL [facility] Comment: Supplemental ranges: <140 mg/dL before meals <180 mg/dL all other times of the day Specimen Anatomical Collection Method Collection Time Receive d Time (Source) Location / / Volume Laterality Blood specimen 07/09/2017 12:20 7 (specimen) PM EST 12:20 PM EST Yuan Webber MD POINT OF CARE TEST ORDERABLE S Performing Organization Address City/State/ZIP Code Phon e Number [address] POCT Glucose (07/09/2017 11:24 AM EST) P athologist Signature POC Glucose 156 65 - 199 [facility]/dL [facility] Comment: Supplemental ranges: <140 mg/dL before meals <180 mg/dL all other times of the day Specimen Anatomical Collection Method Collection Time Receive d Time (Source) Location / / Volume Laterality Blood specimen 07/09/2017 11:24 7 (specimen) AM EST 11:24 AM EST Yuan Webber MD POINT OF CARE TEST ORDERABLE S Performing Organization Address City/State/ZIP [place] [address] POCT Glucose (07/09/2017 11:11 AM EST) P athologist Signature POC Glucose 172 65 - 199 [facility] mg/dL [facility] Comment: Supplemental ranges: <140 mg/dL before meals <180 mg/dL all other times of the day Specimen Anatomical Collection Method Collection Time Receive d Time (Source) Location / / Volume Laterality Blood specimen 07/09/2017 11:11 7 (specimen) AM EST 11:11 AM EST Yuan Webber MD POINT OF CARE TEST ORDERABLE S Performing Organization Address City/State/ZIP Code Phon e Number [address] POCT Glucose (07/09/2017 10:08 AM EST) P athologist Signature POC Glucose 176 65 - 199 [facility] mg/dL [facility] Comment: Supplemental ranges: <140 [...] [facility]/ZIP Code Phon e Number [address] POCT Glucose (07/09/2017 8:02 AM EST) P athologist Signature POC Glucose 178 65 - 199 [facility] mg/dL [facility] Comment: Supplemental ranges: <140 mg/dL before meals <180 mg/dL all other times of the day Specimen Anatomical Collection Method Collection Time Receive d Time (Source) Location / / Volume Laterality Blood specimen 07/09/2017 8:02 AM 017 8:02 (specimen) EST AM EST Yuan Webber MD POINT OF CARE TEST ORDERABLE S Performing Organization Address City/State/ZIP [place] [address] (ABNORMAL) BLOOD GAS 2 ARTERIAL (07/09/2017 5:37 AM EST) Analysis Performed At Patho logist Time Signature pH Art 7.36 7.35 - [facility] 7.45 [facility] pCO2 Art 38 35 - 45 [facility] LABORATORY pO2 Art 79 (L) 85 - 104 [facility] LABORATORY HCO3 Art 20.9 20.0 - [facility] 26.0 [facility] mmol/L HOSPITAL LABORATORY BE Art -4.6 (L) -3.0 - 3.0 [facility] mmol/L [facility] Hgb Blood Gas 10.5 (L) 13.7 - [facility] 16.5 gm/dL [facility] O2HB Art 93.8 (L) 94.0 - [facility] 97.0 % [facility] COHB Art 0.3 % [facility] FIO2 Art 40 % [facility] PF Ratio Art 198 [facility] LABORATORY Specimen Anatomical Collection Method Collection Time Receive d Time (Source) Location / / Volume Laterality Blood specimen 07/09/2017 5:37 AM 017 5:37 (specimen) EST AM EST Yuan Webber MD CHEMISTRY ORDERABLES Performing Organization Address City/State/ZIP [place] [address] POCT Glucose (07/09/2017 3:27 AM EST) athologist Signature POC Glucose 192 65 - 199 [facility] Comment: Supplemental ranges: <140 mg/dL before meals <180 mg/dL all other times of the day Specimen Anatomical Collection Method Collection Time Receive d Time (Source) Location / / Volume Laterality Blood specimen 07/09/2017 3:27 AM 017 3:27 (specimen) EST AM EST Yuan Webber MD POINT OF CARE TEST ORDERABLE S Performing Organization Address City/State/ZIP [place] [address] (ABNORMAL) Basic Metabolic Panel (non-fasting) (07/09/2017 2:30 AM EST) athologist Signature Glucose Lvl 179 65 - 199 [facility] mg/dL [facility] Comment: Diabetes: >=200 mg/dL [...] or in patients with acute kidney failure. [email or web address] Specimen Anatomical Collection Method Collection Time Receive d Time (Source) Location / / Volume Laterality Blood specimen Venous Draw / 07/09/2017 2:30 AM 2016 2:42 (specimen) Unknown EST AM EST Resulting Agency Comment Spec In Lab Yuan Webber MD CHEMISTRY ORDERABLES Performing Organization Address City/[facility] [place] [address] (ABNORMAL) Potassium (07/09/2017 2:30 AM EST) P athologist Signature Potassium 5.1 (H) 3.5 - 5.0 [facility] mmol/L [facility] Comment: Please note: ??Patients [...] Webber MD CHEMISTRY ORDERABLES Performing Organization Address [facility] [place] [address] (ABNORMAL) Hemogram (07/09/2017 2:30 AM EST) Analysis Performed At Patho logist Time Signature WBC 12.5 (H) 4.0 - 9.5 [facility] RYAN x10(3)/[facility] LABORATORY RBC 3.38 (L) 4.58 - [place] RY[place] 5.54 [facility] x10(6)/[facility] LABORATORY Hemoglobin 10.1 (L) 13.7 - [place] RY[place] 16.5 gm/dL [facility] Hematocrit 30.3 (L) 40.5 - [place] RY[place] 48.5 % [facility]ORY MCV 89.6 82.9 - [place] DAVIS 93.1 [facility] LABORATORY MCH 29.9 27.5 - [place] DAV[place] 32.1 pg [facility] MCHC 33.3 32.0 - [place] DAVIS 35.7 gm/dL [facility] Platelets 127 (L) 145 - 357 [place] [facility] x10(3)/[facility] LABORATORY RDWSD 49.3 (H) 36.0 - [place] DAVIS 45.0 [facility] LABORATORY RDWCV 15.2 (H) 11.4 - [place] DAV[place] 13.8 % [facility] MPV 9.9 7.6 - 12.9 [place] DAVIS [facility] LABORATORY nRBC % Auto 0.0 % [facility] nRBC Abs Auto 0.000 0.000 - [place] DAVIS 0.000 [facility] x10(3)/[facility] LABORATORY Specimen Anatomical Collection Method Collection Time Receive d Time (Source) Location / / Volume Laterality Blood specimen 07/09/2017 2:30 AM 017 2:41 (specimen) EST AM EST Resulting Agency Comment Spec In Lab Yuan Webber MD HEMATOLOGY ORDERABLES Performing Organization Address City/[facility]/ZIP Code Phon e Number [address] POCT Glucose (07/09/2017 2:10 AM EST) athologist Signature POC Glucose 169 65 - 199 [facility] mg/dL [facility] Comment: Supplemental ranges: <140 mg/dL before meals <180 mg/dL all other times of the day Specimen Anatomical Collection Method Collection Time Receive d Time (Source) Location / / Volume Laterality Blood specimen 07/09/2017 2:10 AM 017 2:10 (specimen) EST AM EST Yuan Webber MD POINT OF CARE TEST ORDERABLE S Performing Organization Address City/[facility] Code Phon e Number [address] POCT Glucose (07/09/2017 1:01 AM EST) athologist Signature POC Glucose 173 65 - 199 [facility] mg/dL [facility] Comment: Supplemental ranges: <140 [...] [facility]/ZIP [place] [address] Blood culture (07/09/2017 12:40 AM EST) [facility] gist Method Time Signature Blood Culture No growth [place] DAVIS at 5 days. [facility]OR[facility]ORY Specimen Anatomical Collection Method Collection Time Receive d Time (Source) Location / / Volume Laterality Blood specimen STRUCTURE OF RIGHT 07/09/2017 12:40 3:58 (specimen) UPPER LIMB / AM EST AM EST Unknown Resulting Agency Comment Spec In Lab Yuan Webebr MD MICROBIOLOGY - BLOOD ORDERAB LES Performing Organization Address City/[facility]/ZIP [place] [address] Blood culture (07/09/2017 12:30 AM EST) [facility] gist Method Time Signature Blood Culture No growth K[place]ALINA DAVIS at 5 days. [facility] Specimen Anatomical Collection Method Collection Time Receive d Time (Source) Location / / Volume Laterality Blood specimen STRUCTURE OF LEFT 07/09/2017 12:30 1211/2016 3:59 (specimen) UPPER LIMB / AM EST AM EST Unknown Resulting Agency Comment Spec In Lab Yuan Webber MD MICROBIOLOGY - BLOOD ORDERAB LES Performing Organization Address City/[facility]/ZIP [place] [address] (ABNORMAL) Urinalysis Microscopic Exam (07/09/2017 12:05 AM EST) Analysis Performed At Patho logist Time Signature RBC UA 32 (H) 0 - 3 /HPF [facility] WBC UA 5 (H) 0 - 3 /HPF [facility] Squam Epith UA <1 <=4 /HPF [facility] Hyaline Cast 17 (H) 0 - 2 /LPF [facility]ORATORY Gran Cast UA 1 (H) <=0 /LPF [facility] Uric Ac Bianca Rare (A) None /HPF [facility]ORY Specimen (Source) Anatomical Collection Method Collection Time Re ceived Time Location / / Volume Laterality Urine specimen 07/09/2017 12: 7 obtained via AM EST 12:39 AM EST indwelling urinary catheter (specimen) Resulting Agency Comment Spec In Lab Yuan Webber MD URINE ORDERABLES Performing Organization Address City/State/ZIP [place] [address] (ABNORMAL) Urinalysis with reflex Culture (07/09/2017 12:05 AM EST) [facility] gist Method Time Signature Glucose UA Negative Negative [facility] mg/dL [facility] Protein UA 30 (A) Negative [facility] mg/dL [facility] Bilirubin UA Negative Negative [facility] mg/dL [facility] Comment: Clinical correlation required [...] CENTER LABORATORY Ketones UA Negative Negative mg/dL [facility] Nitrite UA Negative Negative [facility] LABORATORY Leukocytes UA Negative Negative [facility] LABORATORY Appearance UA Hazy (A) Clear [facility] LABORATORY Spec [place] UA 1.025 1.002 - 1.030 [facility] LABORATORY Color UA Yellow Yellow [facility] LABOR[facility]ORY Culture Reflexed No [facility] [...] [facility]/ZIP Code Phon e Number [address] POCT Glucose (07/08/2017 11:01 PM EST) P athologist Signature POC Glucose 191 65 - 199 [facility] mg/dL [facility] Comment: Supplemental ranges: <140 mg/dL before meals <180 mg/dL all other times of the day Specimen Anatomical Collection Method Collection Time Receive d Time (Source) Location / / Volume Laterality Blood specimen 07/08/2017 11:01 7 (specimen) PM EST 11:01 PM EST Yuan Webber MD POINT OF CARE TEST ORDERABLE S Performing Organization Address [facility]/ZIP Code Phon e Number [address] POCT Glucose (07/08/2017 10:04 PM EST) P athologist Signature POC Glucose 198 65 - 199 [facility] mg/dL [facility] LABORATORY Comment: Supplemental ranges: <140 [...] [facility]/ZIP Code Phon e Number [address] Prepare Albumin 5% in [...] Organization Address City/State/ZIP [place] [address] POCT Glucose (07/08/2017 8:28 PM EST) athologist Signature POC Glucose 195 65 - 199 [place] mg/dL [facility] LABORATORY Comment: Supplemental ranges: <140 [...] [facility]/ZIP [place] [address] (ABNORMAL) POCT Glucose (07/08/2017 7:13 PM EST) athologist Signature POC Glucose 220 (H) 65 - 199 [place] mg/dL [facility] LABORATORY Comment: Supplemental ranges: <140 [...] [facility]/ZIP [place] [address] POCT Glucose (07/08/2017 5:04 PM EST) athologist Signature POC Glucose 147 65 - 199 [place] Z[place] mg/dL [facility] LABORATORY Comment: Supplemental ranges: <140 mg/dL before meals <180 mg/dL all other times of the day Specimen Anatomical Collection Method Collection Time Receive d Time (Source) Location / / Volume Laterality Blood specimen 07/08/2017 5:04 PM 017 5:04 (specimen) EST PM EST Yuan Webber MD POINT OF CARE TEST ORDERABLE S Performing Organization Address City/State/ZIP [place] [address] (ABNORMAL) BLOOD GAS 2 ARTERIAL (07/08/2017 4:13 PM EST) Analysis Performed At Patho logist Time Signature pH Art 7.38 7.35 - [facility] 7.45 [facility] LABORATORY pCO2 Art 36 35 - 45 [facility] mmHg [facility] LABORATORY pO2 Art 91 85 - 104 [facility] mmHg [facility] LABORATORY HCO3 Art 20.9 20.0 - [facility] 26.0 [facility] mmol/L [facility] LABORATORY BE Art -4.2 (L) -3.0 - 3.0 [facility] mmol/L [facility] LABORATORY Hgb Blood Gas 11.7 (L) 13.7 - [facility] 16.5 gm/dL [facility] LABORATORY O2HB Art 95.1 94.0 - [facility] 97.0 % [facility] LABORATORY COHB Art 0.6 % [facility] FIO2 Art 40 % [facility] LABORATORY PF Ratio Art 228 [facility] LABORATORY Specimen Anatomical Collection Method Collection Time Receive d Time (Source) Location / / Volume Laterality Blood specimen 07/08/2017 4:13 PM 017 4:13 (specimen) EST PM EST Yuan Webber MD CHEMISTRY ORDERABLES Performing Organization Address City/[facility]/ZIP Code Phon e Number [address] POCT Glucose (07/08/2017 4:01 PM EST) athologist Signature POC Glucose 148 65 - [address] [facility] LABORATORY Comment: Supplemental ranges: <140 mg/dL before meals <180 mg/dL all other times of the day Specimen Anatomical Collection Method Collection Time Receive d Time (Source) Location / / Volume Laterality Blood specimen 07/08/2017 4:01 PM 017 4:01 (specimen) EST PM EST Yuan Webber MD POINT OF CARE TEST ORDERABLE S Performing Organization Address City/State/ZIP Code Phon e Number [address] POCT Glucose (07/08/2017 3:21 PM EST) athologist Signature POC Glucose 118 65 - 199 [facility] mg/dL [facility] LABORATORY Comment: Supplemental ranges: <140 mg/dL before meals <180 mg/dL all other times of the day Specimen Anatomical Collection Method Collection Time Receive d Time (Source) Location / / Volume Laterality Blood specimen 07/08/2017 3:21 PM 017 3:21 (specimen) EST PM EST Yuan Webber MD POINT OF CARE TEST ORDERABLE S Performing Organization Address City/State/ZIP Code Phon e Number [address] POCT Glucose (07/08/2017 2:01 PM EST) athologist Signature POC Glucose 129 65 - 199 [facility] mg/dL [facility] LABORATORY Comment: Supplemental ranges: <140 mg/dL before meals <180 mg/dL all other times of the day Specimen Anatomical Collection Method Collection Time Receive d Time (Source) Location / / Volume Laterality Blood specimen 07/08/2017 2:01 PM 017 2:01 (specimen) EST PM EST Yuan Webber MD POINT OF CARE TEST ORDERABLE S Performing Organization Address City/State/ZIP [place] [address] POCT Glucose (07/08/2017 11:53 AM EST) athologist Signature POC Glucose 156 65 - 199 [place] RYAN mg/dL [facility] LABORATORY Comment: Supplemental ranges: <140 mg/dL before meals <180 mg/dL all other times of the day Specimen Anatomical Collection Method Collection Time Receive d Time (Source) Location / / Volume Laterality Blood specimen 07/08/2017 11:53 7 (specimen) AM EST 11:53 AM EST Yuan Webber MD POINT OF CARE TEST ORDERABLE S Performing Organization Address City/State/ZIP [place] [address] POCT Glucose (07/08/2017 11:04 AM EST) athologist Signature POC Glucose 181 65 - 199 [place] RYAN mg/dL [facility] LABORATORY Comment: Supplemental ranges: <140 mg/dL before meals <180 mg/dL all other times of the day Specimen Anatomical Collection Method Collection Time Receive d Time (Source) Location / / Volume Laterality Blood specimen 07/08/2017 11:04 7 (specimen) AM EST 11:04 AM EST Yuan Webber MD POINT OF CARE TEST ORDERABLE S Performing Organization Address City/State/ZIP [place] [address] (ABNORMAL) POCT Glucose (07/08/2017 9:24 AM EST) athologist Signature POC Glucose 203 (H) 65 - 199 [place] RYAN mg/dL [facility] LABORATORY Comment: Supplemental ranges: <140 [...] [facility]/ZIP [place] [address] APTT (07/08/2017 8:40 AM [...] Organization Address City/State/[place]IP [place] [address] (ABNORMAL) Prothrombin Time (07/08/2017 [...] Organization Address City/State/ZIP [place] [address] (ABNORMAL) POCT Glucose (07/08/2017 7:38 AM EST) athologist Signature POC Glucose 232 (H) 65 - 199 [facility] mg/dL [facility] LABORATORY Comment: Supplemental ranges: <140 [...] [facility]/ZIP [place] [address] (ABNORMAL) POCT Glucose (07/08/2017 7:07 AM EST) athologist Signature POC Glucose 234 (H) 65 - 199 [facility] mg/dL [facility] LABORATORY Comment: Supplemental ranges: <140 mg/dL before meals <180 mg/dL all other times of the day Specimen Anatomical Collection Method Collection Time Receive d Time (Source) Location / / Volume Laterality Blood specimen 07/08/2017 7:07 AM 017 7:07 (specimen) EST AM EST Yuan Webber MD POINT OF CARE TEST ORDERABLE S Performing Organization Address City/State/ZIP [place] [address] (ABNORMAL) POCT Glucose (07/08/2017 6:04 AM EST) athologist Signature POC Glucose 225 (H) 65 - 199 [facility] mg/dL [facility] LABORATORY Comment: Supplemental ranges: <140 mg/dL before meals <180 mg/dL all other times of the day Specimen Anatomical Collection Method Collection Time Receive d Time (Source) Location / / Volume Laterality Blood specimen 07/08/2017 6:04 AM 017 6:04 (specimen) EST AM EST Yuan Webber MD POINT OF CARE TEST ORDERABLE S Performing Organization Address City/State/ZIP [place] [address] (ABNORMAL) POCT Glucose (07/08/2017 5:31 AM EST) P athologist Signature POC Glucose 216 (H) 65 - 199 [facility] mg/dL [facility] LABORATORY Comment: Supplemental ranges: <140 mg/dL before meals <180 mg/dL all other times of the day Specimen Anatomical Collection Method Collection Time Receive d Time (Source) Location / / Volume Laterality Blood specimen 07/08/2017 5:31 AM 017 5:31 (specimen) EST AM EST Yuan Webber MD POINT OF CARE TEST ORDERABLE S Performing Organization Address City/State/ZIP [place] [address] (ABNORMAL) POCT Glucose (07/08/2017 4:52 AM EST) P athologist Signature POC Glucose 257 (H) 65 - 199 [facility] mg/dL [facility] LABORATORY Comment: Supplemental ranges: <140 mg/dL before meals <180 mg/dL all other times of the day Specimen Anatomical Collection Method Collection Time Receive d Time (Source) Location / / Volume Laterality Blood specimen 07/08/2017 4:52 AM 017 4:52 (specimen) EST AM EST Daphne Shahid MD POINT OF CARE TEST ORDERABLE S Performing Organization Address City/State/ZIP [place] [address] (ABNORMAL) BLOOD GAS 2 ARTERIAL (07/08/2017 4:04 AM EST) Analysis Performed At Patho logist Time Signature pH Art 7.30 (L) 7.35 - [facility] 7.45 [facility] LABORATORY pCO2 Art 41 35 - 45 [facility] LABORATORY pO2 Art 83 (L) 85 - 104 [facility] LABORATORY HCO3 Art 19.6 (L) 20.0 - [facility] 26.0 [facility] mmol/L [facility] LABORATORY BE Art -6.8 (L) -3.0 - 3.0 [facility] mmol/L [facility] LABORATORY Hgb Blood Gas 12.2 (L) 13.7 - [facility] 16.5 gm/dL [facility] LABORATORY O2HB Art 93.5 (L) 94.0 - [facility] 97.0 % [facility] LABORATORY COHB Art 0.4 % [facility] Comment: Noted by instrument repair supervisor. FIO2 Art 40 % [facility] LABORATORY PF Ratio Art 208 [facility] LABORATORY Specimen Anatomical Collection Method Collection Time Receive d Time (Source) Location / / Volume Laterality Blood specimen 07/08/2017 4:04 AM 017 4:04 (specimen) EST AM EST Daphne Shahid MD CHEMISTRY ORDERABLES Performing Organization Address City/State/Z[place] [address] Scan, Peripheral Blood (07/08/2017 [...] Organization Address City/State/ZIP [place] [address] (ABNORMAL) Differential, Automated (07/08/2017 4:00 AM EST) Patholo gist Method Time Signature Neutrophils % 85.4 % [facility] LABORATORY Neutr Abs (ANC) 16.07 (H) 1.70 - [facility] 6.10 [facility] x10(3)/[facility] LABORATORY Lymphocytes % 3.5 % [facility] LABORATORY Lymphocytes Abs 0.6 (L) 0.9 - 3.2 [facility] x10(3)/[facility] LABORATORY Monocytes % 10.4 % [facility] LABORATORY Monocyte Abs 2.0 (H) 0.3 - 0.9 [facility] x10(3)/[facility] LABORATORY Eosinophils % 0.0 % [facility] LABORATORY Eosinophils Abs 0.0 0.0 - 0.4 [facility] x10(3)/[facility] LABORATORY Basophils % 0.1 % [facility] LABORATORY Basophils Abs 0.0 0.0 - 0.1 [facility] x10(3)/[facility] LABORATORY Immature Gran [...] Organization Address City/State/ZIP [place] [address] (ABNORMAL) Hemogram (07/08/2017 4:00 AM EST) Analysis Performed At Patho logist Time Signature WBC 18.8 (H) 4.0 - 9.5 [facility] LABORATORY RBC 4.00 (L) 4.58 - [facility] 5.54 [facility] x10(6)/[facility] LABORATORY Hemoglobin 11.9 (L) 13.7 - [facility] 16.5 gm/dL [facility] LABORATORY Hematocrit 35.9 (L) 40.5 - [facility] 48.5 % [facility] LABORATORY MCV 89.8 82.9 - [facility] 93.1 [facility] LABORATORY MCH 29.8 27.5 - [facility] RYAN 32.1 pg [facility] LABORATORY MCHC 33.1 32.0 - [facility] RYAN 35.7 gm/dL [facility] LABORATORY Platelets 232 145 - 357 [facility] x10(3)/[facility] LABORATORY RDWSD 47.6 (H) 36.0 - [facility] RYAN 45.0 [facility] LABORATORY RDWCV 14.5 (H) 11.4 - [facility] RYAN 13.8 % [facility] LABORATORY MPV 9.5 7.6 - 12.9 [facility] nRBC % Auto 0.0 % [facility] LABORATORY nRBC Abs Auto 0.000 0.000 - [place] R[place] 0.000 [facility] x10(3)/[facility] LABORATORY Specimen Anatomical Collection Method Collection Time Receive d Time (Source) Location / / Volume Laterality Blood specimen 07/08/2017 4:00 AM 017 4:09 (specimen) EST AM EST Resulting Agency Comment Spec In Lab Yuan Webber MD HEMATOLOGY ORDERABLES Performing Organization Address City/[facility]/ZIP [place] [address] (ABNORMAL) Electrolytes panel (07/08/2017 4:00 AM EST) athologist [facility] Sodium 139 135 - 145 [facility] mmol/L [facility] LABORATORY Potassium 4.7 3.5 - 5.0 [facility] mmol/L [facility] LABORATORY Comment: result rechecked-JLK Please [...] [facility]/ZIP [place] [address] (ABNORMAL) Cardiac Enzymes (LEB/CGP) (07/08/2017 4:00 AM EST) athologist [facility] Troponin-T 1.88 (H) 0.00 - [facility] 0.00 ng/mL [facility] LABORATORY Comment: The 99th percentile [...] additional sample may be indicated. Reference: Third Alvarado Definition of Myocardial Infarction. Journal of the [employer] 2012;60:1581-98 CK, Total 413 [...] Organization Address City/State/ZIP [place] [address] (ABNORMAL) Glucose, fasting (07/08/2017 4:00 AM EST) athologist Signature Glucose 287 (H) 65 - 99 [facility] Fasting mg/dL [facility] LABORATORY Comment: ?Fasting* Glucose Interpretive [...] of Diabetes Mellitus, Position Statement from the [employer]. ??Diabete s Care, Volume 33, Supplement 1, Jul 2009 Specimen Anatomical Collection Method Collection Time Receive d Time (Source) Location / / Volume Laterality Blood specimen 07/08/2017 4:00 AM 017 4:09 (specimen) EST AM EST Resulting Agency Comment Spec In Lab Yuan Webber MD CHEMISTRY ORDERABLES Performing Organization Address City/State/ZIP [place] [address] (ABNORMAL) Creatinine (07/08/2017 4:00 AM EST) Analysis Performed At Patho logist Time Signature Creatinine 1.55 (H) 0.80 - [facility] 1.50 mg/dL [facility] LABORATORY Estimated GFR 44 (L) >=60 [facility] LABORATORY Comment: The reported eGFR should be multiplied b y 1.2 for patients. The MDRD is not an appropriate measure o f renal function for patients with body mass extremes or in patients with acute kidney failure. http://[employer]/DHnkdep http://[employer]/DHMCnkf Specimen Anatomical Collection Method Collection Time Receive d Time (Source) Location / / Volume Laterality Blood specimen 07/08/2017 4:00 AM 017 4:09 (specimen) EST AM EST Resulting Agency Comment Spec In Lab Yuan Webber MD CHEMISTRY ORDERABLES Performing Organization Address City/State/ZIP [place] [address] BUN (07/08/2017 4:00 AM EST) P athologist Signature BUN 16 10 - 20 [facility] mg/dL [facility] LABORATORY Specimen Anatomical Collection Method Collection Time Receive d Time (Source) Location / / Volume Laterality Blood specimen 07/08/2017 4:00 AM 017 4:09 (specimen) EST AM EST Resulting Agency Comment Spec In Lab Yuan Webber MD CHEMISTRY ORDERABLES Performing Organization Address City/[facility]/ZIP [place] [address] (ABNORMAL) POCT Glucose (07/08/2017 3:00 AM EST) P athologist Signature POC Glucose 273 (H) 65 - 199 [facility] mg/dL [facility] LABORATORY Comment: Supplemental ranges: <140 mg/dL before meals <180 mg/dL all other times of the day Specimen Anatomical Collection Method Collection Time Receive d Time (Source) Location / / Volume Laterality Blood specimen 07/08/2017 3:00 AM 017 3:00 (specimen) EST AM EST Daphne Shahid MD POINT OF CARE TEST ORDERABLE S Performing Organization Address City/State/ZIP [place] [address] (ABNORMAL) POCT Glucose (07/08/2017 1:57 AM EST) athologist Signature POC Glucose 288 (H) 65 - 199 [facility] mg/dL [facility] LABORATORY Comment: Supplemental ranges: <140 mg/dL before meals <180 mg/dL all other times of the day Specimen Anatomical Collection Method Collection Time Receive d Time (Source) Location / / Volume Laterality Blood specimen 07/08/2017 1:57 AM 017 1:57 (specimen) EST AM EST Daphne Shahid MD POINT OF CARE TEST ORDERABLE S Performing Organization Address City/State/ZIP [place] [address] (ABNORMAL) POCT Glucose (07/08/2017 1:01 AM EST) athologist Signature POC Glucose 315 (H) 65 - 199 [facility] mg/dL [facility] LABORATORY Comment: Supplemental ranges: <140 mg/dL before meals <180 mg/dL all other times of the day Specimen Anatomical Collection Method Collection Time Receive d Time (Source) Location / / Volume Laterality Blood specimen 07/08/2017 1:01 AM 017 1:01 (specimen) EST AM EST Daphne Shahid MD POINT OF CARE TEST ORDERABLE S Performing Organization Address City/State/ZIP [place] [address] (ABNORMAL) BLOOD GAS 2 ARTERIAL (07/08/2017 12:09 AM EST) athologist Signature pH Art 7.26 7.35 - [facility] (Critical) 7.45 [facility] LABORATORY Comment: Noted by instrument repair supervisor. pCO2 Art 41 35 - 45 mmHg [facility] LABORATORY pO2 Art 96 85 - 104 mmHg [facility] LABORATORY HCO3 Art 17.7 (L) 20.0 - 26.0 mmol/L [facility] LABORATORY BE Art -9.4 (L) -3.0 - 3.0 mmol/L [facility] LABORATORY Hgb Blood Gas 12.4 (L) 13.7 - 16.5 gm/dL [facility] LABORATORY O2HB Art 94.7 94.0 - 97.0 % [facility] LABORATORY COHB Art 0.2 % [facility] [...] [facility] Comment: Noted by instrument repair supervisor. FIO2 Art 40 % [facility] LABORATORY PF Ratio Art 240 [facility] LABORATORY Specimen Anatomical Collection Method Collection Time Receive d Time (Source) Location / / Volume Laterality Blood specimen Arterial Draw / 07/08/2017 12:09 2016 5:31 (specimen) Unknown AM EST AM EST Resulting Agency Comment Spec In Lab Samy Maldonado MD CHEMISTRY ORDERABLES Performing Organization Address City/[facility]/ZIP [place] [address] (ABNORMAL) POCT Glucose (07/07/2017 10:56 PM EST) athologist Signature POC Glucose 292 (H) 65 - 199 [facility] mg/dL [facility] LABORATORY Comment: Supplemental ranges: <140 [...] [facility]/ZIP [place] [address] (ABNORMAL) BLOOD GAS 2 ARTERIAL (07/07/2017 10:04 PM EST) athologist Signature pH Art 7.22 7.35 - [facility] (Critical) 7.45 [facility] LABORATORY Comment: Noted by instrument repair supervisor. pCO2 Art 42 35 - 45 mmHg [facility] LABORATORY pO2 Art 94 85 - 104 mmHg [facility] LABORATORY HCO3 Art 16.9 (L) 20.0 - 26.0 mmol/L [facility] LABORATORY BE Art -10.7 (L) -3.0 - 3.0 mmol/L [facility] LABORATORY Hgb Blood Gas 13.0 (L) 13.7 - 16.5 gm/dL [facility] LABORATORY O2HB Art 93.8 (L) 94.0 - 97.0 % [facility] LABORATORY COHB Art 0.7 % [facility] LABORATORY Comment: Nonsmokers: 0.5-1.5% COHB Smokers: Variable, but usually less than 10% Toxic: 20-30% COHB Lethal: Greater than 60% COHB METHB Art 0.7 <=1.5 % [facility] LABORATORY Na Whole Blood 140 135 - 145 mmol/L [facility] LABORAT[facility] K Whole Blood 3.3 (L) [...] [facility] Comment: Noted by instrument repair supervisor. FIO2 Art 40 % [facility] LABORATORY PF Ratio Art 235 [facility] LAB[facility]ORY Specimen Anatomical Collection Method Collection Time Receive d Time (Source) Location / / Volume Laterality Blood specimen 07/07/2017 10:04 7 (specimen) PM EST 10:04 PM EST Daphne Shahid MD CHEMISTRY ORDERABLES Performing Organization Address City/State/ZIP [place] [address] (ABNORMAL) Hemoglobin (07/07/2017 10:00 PM EST) P athologist Signature Hemoglobin 12.8 (L) 13.7 - [facility] 16.5 gm/dL [facility] LABORATORY Specimen Anatomical Collection Method Collection Time Receive d Time (Source) Location / / Volume Laterality Blood specimen 07/07/2017 10:00 7 (specimen) PM EST 10:13 PM EST Resulting Agency Comment Spec In Lab Yuan Webber MD HEMATOLOGY ORDERABLES Performing Organization Address City/[facility]/ZIP [place] [address] (ABNORMAL) Potassium (07/07/2017 10:00 PM EST) athologist Signature Potassium 3.4 (L) 3.5 - 5.0 [facility] mmol/L [facility] LABORATORY Comment: Please note: ??Patients [...] [facility]/ZIP [place] [address] (ABNORMAL) POCT Glucose (07/07/2017 8:49 PM EST) athologist Signature POC Glucose 241 (H) 65 - 199 [facility] mg/dL [facility] LABORATORY Comment: Supplemental ranges: <140 [...] [facility]/ZIP [place] [address] Prepare Albumin 5% in [...] Organization Address City/State/ZIP [place] [address] EKG 12 Lead (07/07/2017 7:17 PM EST) Component Value Ref Range Test Analysis Performed Pathologis t Method Time At Signature Ventricular rate 75 BPM MUSE SYSTEM Atrial Rate 75 BPM MUSE SYSTEM P-R Interval 168 ms MUSE SYSTEM QRS Duration 104 ms MUSE SYSTEM Q-T Interval 462 ms MUSE SYSTEM QTC Calculated 515 ms MUSE SYSTEM (Bezet) Calculated P [place] 52 degrees MUSE SYSTEM Calculated R [place] -40 degrees MUSE SYSTEM Calculated T [place] 39 degrees MUSE SYSTEM INTERPRETATION Normal sinus [...] 7.21 7.35 - [facility] (Critical) 7.45 [facility] Comment: Noted by instrument repair supervisor. pCO2 Art 50 (H) 35 - 45 mmHg [facility] pO2 Art 238 (H) 85 - 104 mmHg [facility] HCO3 Art 19.8 (L) 20.0 - 26.0 mmol/L [facility] OCK [facility] BE Art -8.1 (L) -3.0 - 3.0 mmol/L [facility] Hgb Blood Gas 12.8 (L) 13.7 - 16.5 gm/dL [facility] O2HB Art 97.5 (H) 94.0 - 97.0 % [facility] COHB Art 0.5 % [facility] Comment: Nonsmokers: 0.5-1.5% COHB Smokers: Variable, but usually less than 10% Toxic: 20-30% COHB Lethal: Greater than 60% COHB METHB Art 0.7 <=1.5 % [facility] Na Whole Blood 140 135 - 145 mmol/L [facility] K Whole Blood 3.0 (Critical) 3.5 - 5.0 mmol/L [facility] Comment: Noted by instrument repair supervisor. Please note: Patients with WBC >100,000 may [...] [facility] Comment: Noted by instrument repair supervisor. FIO2 Art 100 % [facility] PF Ratio Art 238 [facility] Specimen Anatomical Collection Method Collection Time Receive d Time (Source) Location / / Volume Laterality Blood specimen 07/07/2017 6:57 PM 017 6:57 (specimen) EST PM EST Daphne Shahid MD CHEMISTRY ORDERABLES Performing Organization Address City/State/ZIP [place] [address] (ABNORMAL) BLOOD GAS 2 ARTERIAL (07/07/2017 5:31 PM EST) athologist Signature pH Art 7.29 7.35 - [facility] (Critical) 7.45 [facility] Comment: Noted by instrument repair supervisor. pCO2 Art 48 (H) 35 - 45 mmHg [facility] pO2 Art 137 (H) 85 - 104 mmHg [facility] HCO3 Art 22.4 20.0 - 26.0 mmol/L [facility] BE Art -4.3 (L) -3.0 - 3.0 mmol/L [facility] Hgb Blood Gas 10.0 (L) 13.7 - 16.5 gm/dL [facility] O2HB Art 97.3 (H) 94.0 - 97.0 % [facility] COHB Art 0.3 % [facility] Comment: Nonsmokers: 0.5-1.5% COHB Smokers: Variable, but usually less than 10% Toxic: 20-30% COHB Lethal: Greater than 60% COHB METHB Art 0.3 <=1.5 % [facility] Na Whole Blood 132 (L) 135 - 145 mmol/L [facility] [...] WB 3.1 (H) 0.5 - 2.2 mmol/L [facility] Specimen Anatomical Collection Method Collection Time Receive d Time (Source) Location / / Volume Laterality Blood specimen 07/07/2017 5:31 PM 017 5:31 (specimen) EST PM EST Daphne Shahid MD CHEMISTRY ORDERABLES Performing Organization Address City/State/ZIP [place] [address] Fibrinogen (07/07/2017 5:30 PM EST) P athologist Signature Fibrinogen 224 180 - 510 [facility] mg/dL [facility] Comment: Called by: JEET, [...] [facility]/ZIP Code Phon e Number [address] APTT (07/07/2017 5:30 [...] Organization Address City/[facility]/ZIP [facility] [place] [address] (ABNORMAL) Prothrombin Time (07/07/2017 [...] Organization Address City/State/ZIP [place] [address] (ABNORMAL) Hemogram (07/07/2017 5:30 PM EST) athologist Signature WBC 19.6 (H) 4.0 - 9.5 [facility] x10(3)/[facility] LABORATORY RBC 3.08 (L) 4.58 - [facility] 5.54 [facility] x10(6)/[facility] LABORATORY Hemoglobin 9.2 (L) 13.7 - [facility] 16.5 gm/dL [facility] Hematocrit 28.0 (L) 40.5 - [facility] 48.5 % [facility] Comment: This result has been called to MONICA WEINSTEIN SON by DONALD GROSSMAN on 07 07 2017 at 1759, and has been read back. MCV 90.9 82.9 - 93.1 [facility] LABORATORY MCH 29.9 27.5 - 32.1 pg [facility] MCHC 32.9 32.0 - 35.7 gm/dL [facility] Platelets 155 145 - 357 x10(3)/[facility] LABORATORY RDWSD 46.5 (H) 36.0 - 45.0 [facility] LABORATORY RDWCV 14.1 (H) 11.4 - 13.8 % [facility] MPV 9.5 7.6 - 12.9 [facility] LABORATORY nRBC % Auto 0.0 % [facility] nRBC Abs Auto 0.000 0.000 - 0.000 x10(3)/mcL M SHAHBAZ [facility] Specimen Anatomical Collection Method Collection Time Receive d Time (Source) Location / / Volume Laterality Blood specimen 07/07/2017 5:30 PM 017 5:34 (specimen) EST PM EST Resulting Agency Comment Spec In Lab Yifan Perez MD HEMATOLOGY ORDERABLES Performing Organization Address City/[facility]/ZIP Code Phon e Number [address] Prepare Platelets, Apheresis (07/07/2017 5:00 PM EST) P athologist Signature Dispensed? Yes [facility] Specimen Anatomical Collection Method Collection Time Receive d Time (Source) Location / / Volume Laterality Blood specimen 07/07/2017 5:00 PM 017 4:58 (specimen) EST PM EST Daphne Shahid MD BLOOD BANK ORDERABLES Performing Organization Address City/[facility]/ZIP Code Phon e Number [address] Platelet count (07/07/2017 4:55 PM EST) P athologist Signature Platelets 177 145 - 357 [facility] x10(3)/[facility] LABORATORY Plat Immature 1.5 0.0 - 7.4 [facility] % % [facility] Comment: Limitation of the Immature Platelet Frac tion (IPF)-May be less reliable when the platelet count is less than 27e277/u L due to statistical imprecision. The IPF [...] in a decreased state of production. References: [employer] The Clinical Value of the Immature Platelet Fraction (IPF) in Cell Recovery Document Number 10-1143 12/2010 [employer] The Role of the Imm ature [...] Organization Address City/State/ZIP [place] [address] (ABNORMAL) Hemoglobin and Hematocrit, blood (07/07/2017 4:55 PM EST) P athologist Signature Hemoglobin 9.1 (L) 13.7 - 16.5 [facility] gm/dL [facility] Comment: This result has [...] Organization Address City/State/ZIP [place] [address] (ABNORMAL) BLOOD GAS 2 ARTERIAL (07/07/2017 4:38 PM EST) Analysis Performed At Patho logist Time Signature pH Art 7.37 7.35 - [facility] 7.45 [facility] pCO2 Art 44 35 - 45 [facility] mmHg [facility] pO2 Art 322 (H) 85 - 104 [facility] LABORATORY HCO3 Art 24.9 20.0 - [facility] 26.0 [facility] mmol/L [facility] BE Art -0.4 -3.0 - 3.0 [facility] mmol/L [facility] Hgb Blood Gas 10.1 (L) 13.7 - [facility] 16.5 gm/dL [facility] O2HB Art 98.7 (H) 94.0 - [facility] 97.0 % [facility] COHB Art 0.1 % [facility] Comment: Nonsmokers: 0.5-1.5% COHB Smokers: Variable, but usually less than 10% Toxic: 20-30% COHB Lethal: Greater than 60% COHB METHB Art 0.3 <=1.5 % [facility] Na Whole Blood 130 (L) 135 - 145 mmol/L [facility] K Whole Blood 5.7 (H) 3.5 - 5.0 mmol/L [facility] Comment: Please note: Patients with WBC >100,000 may have falsely elevated Potassium levels. Contact the Clinical Chemistry L aboratory if there are any questions. ICa Whole Blood 0.89 (Critical) 1.15 - 1.33 mmol/L [facility] Comment: Noted by instrument repair supervisor. Note: ??Total bilirubin higher than 20 m [...] Organization Address City/State/ZIP [place] [address] (ABNORMAL) BLOOD GAS 2 VENOUS (07/07/2017 4:06 PM EST) Analysis Performed At Patho logist Time Signature pH Cody 7.31 (L) 7.32 - [facility] 7.42 [facility] pCO2 [place] 47 41 - 51 [facility]ATORY pO2 [place] 53 (H) 25 - 40 [facility]ORATORY HCO3 [place] 22.7 mmol/L [facility] BE Cody -3.7 mmol/L [facility] Hgb Blood Gas 10.2 (L) 13.7 - [facility] 16.5 gm/dL [facility] O2HB Cody 81.0 % [facility] COHB Cody 1.0 % [facility] Comment: Nonsmokers: 0.5-1.5% COHB Smokers: Variable, but usually less than 10% Toxic: 20-30% COHB Lethal: Greater than 60% COHB METHB Cody 0.3 <=1.5 % [facility] Na Whole Blood 132 (L) 135 - 145 mmol/L [facility] K Whole Blood 5.3 (H) 3.5 - 5.0 mmol/L [facility] Comment: Please note: Patients with WBC >100,000 may have falsely elevated Potassium levels. Contact the Clinical Chemistry L aboratory if there are any questions. ICa Whole Blood 0.90 (Critical) 1.15 - 1.33 mmol/L [facility] Comment: Noted by instrument repair supervisor. Note: ??Total bilirubin higher than 20 m g/dL may lead to falsely low ionized calcium. CL Whole Blood 100 98 - 107 mmol/L [facility] Gluc Whole Bld 231 (H) 65 - 199 mg/dL [facility] Comment: Diabetes: >=200 mg/dL plus symp toms Lactate WB 1.1 0.5 - 2.2 mmol/L [facility] BGas Source Venous [facility] Specimen Anatomical Collection Method Collection Time Receive d Time (Source) Location / / Volume Laterality Blood specimen 07/07/2017 4:06 PM 017 4:06 (specimen) EST PM EST Daphne Shahid MD CHEMISTRY ORDERABLES Performing Organization Address City/State/ZIP [place] [address] (ABNORMAL) BLOOD GAS 2 ARTERIAL (07/07/2017 4:05 PM EST) Analysis Performed At Patho logist Time Signature pH Art 7.36 7.35 - [facility] 7.45 [facility] pCO2 Art 40 35 - 45 [facility] mmHg [facility] pO2 Art 282 (H) 85 - 104 [facility] mmHg [facility] HCO3 Art 22.1 20.0 - [facility] 26.0 [facility] mmol/L [facility] BE Art -3.4 (L) -3.0 - 3.0 [facility] mmol/L [facility] Hgb Blood Gas 10.2 (L) 13.7 - [facility] 16.5 gm/dL [facility] O2HB Art 98.4 (H) 94.0 - [facility] 97.0 % [facility] COHB Art 0.3 % [facility] Comment: Nonsmokers: 0.5-1.5% COHB Smokers: Variable, but usually less than 10% Toxic: 20-30% COHB Lethal: Greater than 60% COHB METHB Art 0.3 <=1.5 % [facility] Na Whole Blood 131 (L) 135 - 145 mmol/L [facility] K Whole Blood 5.4 (H) 3.5 - 5.0 mmol/L [facility] Comment: Please note: Patients with WBC >100,000 may have falsely elevated Potassium levels. Contact the Clinical Chemistry L aboratory if there are any questions. ICa Whole Blood 0.86 (Critical) 1.15 - 1.33 mmol/L [facility] Comment: Noted by instrument repair supervisor. Note: ??Total bilirubin higher than 20 m [...] Organization Address City/State/ZIP [place] [address] (ABNORMAL) BLOOD GAS 2 ARTERIAL (07/07/2017 2:29 PM EST) Analysis Performed At Patho logist Time Signature pH Art 7.43 7.35 - [facility] 7.45 [facility] pCO2 Art 36 35 - 45 [facility] mmHg [facility] pO2 Art 221 (H) 85 - 104 [facility] LABORATORY HCO3 Art 23.2 20.0 - [facility] 26.0 [facility] mmol/L [facility] BE Art -1.2 -3.0 - 3.0 [facility] mmol/L [facility] Hgb Blood Gas 13.9 13.7 - [facility] 16.5 gm/dL [facility] O2HB Art 97.8 (H) 94.0 - [facility] 97.0 % [facility] COHB Art 1.1 % [facility]/ZIP Code Phon e Number [address] Prepare Coag Factors (Non-Hemophilia) [...] [facility]/ZIP [place] [address] Prepare RBC (07/07/2017 1:10 PM EST) P athologist Signature Dispensed? Yes [facility] Specimen Anatomical Collection Method Collection Time Receive d Time (Source) Location / / Volume Laterality Blood specimen 07/07/2017 1:10 PM 017 1:05 (specimen) EST PM EST Daphne Shahid MD BLOOD BANK ORDERABLES Performing Organization Address City/[facility]/ZIP [place] [address] POCT Glucose (07/07/2017 11:56 AM EST) P athologist Signature POC Glucose 188 65 - 199 [facility] mg/dL [facility] Comment: Supplemental ranges: <140 mg/dL before meals <180 mg/dL all other times of the day Specimen Anatomical Collection Method Collection Time Receive d Time (Source) Location / / Volume Laterality Blood specimen 07/07/2017 11:56 7 (specimen) AM EST 11:56 AM EST Daphne Shahid MD POINT OF CARE TEST ORDERABLE S Performing Organization Address City/State/ZIP Code Phon e Number [address] POCT Glucose (07/07/2017 11:05 AM EST) P athologist Signature POC Glucose 168 65 - 199 [place] mg/dL [facility] Comment: Supplemental ranges: <140 [...] [facility]/ZIP Code Phon e Number [address] POCT Glucose (07/07/2017 10:02 AM EST) P athologist Signature POC Glucose 191 65 - 199 [place] mg/dL [facility] Comment: Supplemental ranges: <140 mg/dL before meals <180 mg/dL all other times of the day Specimen Anatomical Collection Method Collection Time Receive d Time (Source) Location / / Volume Laterality Blood specimen 07/07/2017 10:02 7 (specimen) AM EST 10:02 AM EST Daphne Shahid MD POINT OF CARE TEST ORDERABLE S Performing Organization Address City/State/ZIP [place] [address] POCT Glucose (07/07/2017 7:53 AM EST) P athologist Signature POC Glucose 178 65 - 199 [place] mg/dL [facility] Comment: Supplemental ranges: <140 mg/dL before meals <180 mg/dL all other times of the day Specimen Anatomical Collection Method Collection Time Receive d Time (Source) Location / / Volume Laterality Blood specimen 07/07/2017 7:53 AM 017 7:53 (specimen) EST AM EST Daphne Shahid MD POINT OF CARE TEST ORDERABLE S Performing Organization Address City/State/ZIP Code Phon e Number [address] POCT Glucose (07/07/2017 7:03 AM EST) athologist Signature POC Glucose 188 65 - [address] [facility] Comment: Supplemental ranges: <140 [...] [facility]/ZIP [place] [address] (ABNORMAL) POCT Glucose (07/07/2017 6:17 AM EST) athologist Signature POC Glucose 207 (H) 65 - [address] [facility] Comment: Supplemental ranges: <140 [...] [facility]/ZIP Code Phon e Number [address] Differential, Automated (07/07/2017 5:15 AM EST) athologist Signature Neutrophils % 69.7 % [facility] Neutr Abs (ANC) 5.32 1.70 - [facility] 6.10 [facility] x10(3)/[facility] LABORATORY Lymphocytes % 16.3 % [facility] Lymphocytes Abs 1.2 0.9 - 3.2 [facility] x10(3)/[facility] LABORATORY Monocytes % 10.5 % [facility] Monocyte Abs 0.8 0.3 - 0.9 [facility] x10(3)/[facility] LABORATORY Eosinophils % 2.5 % [facility] Eosinophils Abs 0.2 0.0 - 0.4 [facility] x10(3)/[facility] LABORATORY Basophils % 0.7 % [facility] Basophils Abs 0.0 0.0 - 0.1 [facility] x10(3)/[facility] LABORATORY Immature Gran [...] Melisa Gran Abs 0.02 0.00 - 0.04 x10(3)/[facility] MAR Y [facility] LABORATORY Specimen Anatomical Collection Method Collection Time Receive d Time (Source) Location / / Volume Laterality Blood specimen 07/07/2017 5:15 AM 017 5:34 (specimen) EST AM EST Resulting Agency Comment Spec In Lab Daphne Shahid MD HEMATOLOGY ORDERABLES Performing Organization Address City/State/ZIP [place] [address] (ABNORMAL) Hemogram (07/07/2017 5:15 AM EST) Analysis Performed At Patho logist Time Signature WBC 7.6 4.0 - 9.5 [facility] x10(3)/[facility] LABORATORY RBC 4.82 4.58 - [facility] 5.54 [facility] x10(6)/[facility] LABORATORY Hemoglobin 14.4 13.7 - [facility] 16.5 gm/dL [facility] Hematocrit 42.1 40.5 - [facility] 48.5 % [facility] MCV 87.3 82.9 - [facility] 93.1 fL [facility] MCH 29.9 27.5 - [facility] 32.1 pg [facility] MCHC 34.2 32.0 - [facility] 35.7 gm/dL [facility] Platelets 188 145 - 357 [facility] x[facility](3)/[facility] LABORATORY RDWSD 45.1 (H) 36.0 - [place] 45.0 [facility] LABORATORY RDWCV 14.3 (H) 11.4 - [facility] RYAN 13.8 % [facility] MPV 9.4 7.6 - 12.9 [facility] RYAN [facility] LABORATORY nRBC % Auto 0.0 % [facility] nRBC Abs Auto 0.000 0.000 - [place] DAV[place] 0.000 [facility] x10(3)/[facility] LABORATORY Specimen Anatomical Collection Method Collection Time Receive d Time (Source) Location / / Volume Laterality Blood specimen 07/07/2017 5:15 AM 017 5:34 (specimen) EST AM EST Resulting Agency Comment Spec In Lab Daphne Shahid MD HEMATOLOGY ORDERABLES Performing Organization Address City/[facility]/ZIP Code Phon e Number [address] (ABNORMAL) APTT (07/07/2017 5:15 [...] Address City/State/ZIP Code Phon e Number [address] Magnesium (07/07/2017 5:15 AM EST) P athologist Signature Magnesium 0.94 0.69 - 1.07 [facility] mmol/L [facility]ORY Specimen Anatomical Collection Method Collection Time Receive d Time (Source) Location / / Volume Laterality Blood specimen 07/07/2017 5:15 AM 017 5:34 (specimen) EST AM EST Resulting Agency Comment Spec In Lab Daphne Shahid MD CHEMISTRY ORDERABLES Performing Organization Address City/State/ZIP [place] [address] (ABNORMAL) Basic Metabolic Panel (non-fasting) (07/07/2017 5:15 AM EST) athologist Signature Glucose Lvl 203 (H) 65 - 199 [facility] mg/dL [facility] Comment: Diabetes: >=200 mg/dL [...] or in patients with acute kidney failure. [email or web address] [email or web address]/DHMCnkf Specimen Anatomical Collection Method Collection Time Receive d Time (Source) Location / / Volume Laterality Blood specimen 07/07/2017 5:15 AM 017 5:34 (specimen) EST AM EST Resulting Agency Comment Spec In Lab Daphne Shahid MD CHEMISTRY ORDERABLES Performing Organization Address City/[facility]/ZIP [place] [address] (ABNORMAL) Cardiac Enzymes (LEB/CGP) (07/07/2017 5:15 AM EST) athologist Signature Troponin-T 2.07 (H) 0.00 - [place] OLIVASCK 0.00 ng/mL [facility] Comment: The 99th percentile [...] additional sample may be indicated. Reference: Third Alvarado Definition of Myocardial Infarction. Journal of the [employer] 2012;60:1581-98 CK, Total 88 [...] [facility]/ZIP [place] [address] POCT Glucose (07/07/2017 5:01 AM EST) athologist Signature POC Glucose 182 65 - 199 [facility] mg/dL [facility] Comment: Supplemental ranges: <140 mg/dL before meals <180 mg/dL all other times of the day Specimen Anatomical Collection Method Collection Time Receive d Time (Source) Location / / Volume Laterality Blood specimen 07/07/2017 5:01 AM 017 5:01 (specimen) EST AM EST Daphne Shahid MD POINT OF CARE TEST ORDERABLE S Performing Organization Address City/State/ZIP Code Phon e Number [address] POCT Glucose (07/07/2017 4:08 AM EST) athologist Signature POC Glucose 199 65 - 199 [facility] RYAN mg/dL [facility] Comment: Supplemental ranges: <140 mg/dL before meals <180 mg/dL all other times of the day Specimen Anatomical Collection Method Collection Time Receive d Time (Source) Location / / Volume Laterality Blood specimen 07/07/2017 4:08 AM 017 4:08 (specimen) EST AM EST Daphne Shahid MD POINT OF CARE TEST ORDERABLE S Performing Organization Address City/State/ZIP Code Phon e Number [address] POCT Glucose (07/07/2017 3:03 AM EST) athologist Signature POC Glucose 188 65 - 199 [place] ZHAORYAN mg/dL [facility] Comment: Supplemental ranges: <140 mg/dL before meals <180 mg/dL all other times of the day Specimen Anatomical Collection Method Collection Time Receive d Time (Source) Location / / Volume Laterality Blood specimen 07/07/2017 3:03 AM 017 3:03 (specimen) EST AM EST Daphne Shahid MD POINT OF CARE TEST ORDERABLE S Performing Organization Address City/State/ZIP [place] [address] (ABNORMAL) POCT Glucose (07/07/2017 2:08 AM EST) athologist Signature POC Glucose 200 (H) 65 - [address] [facility] Comment: Supplemental ranges: <140 mg/dL before meals <180 mg/dL all other times of the day Specimen Anatomical Collection Method Collection Time Receive d Time (Source) Location / / Volume Laterality Blood specimen 07/07/2017 2:08 AM 017 2:08 (specimen) EST AM EST Daphne Shahid MD POINT OF CARE TEST ORDERABLE S Performing Organization Address City/State/ZIP [place] [address] (ABNORMAL) POCT Glucose (07/07/2017 1:31 AM EST) athologist Signature POC Glucose 209 (H) 65 - 199 [facility] mg/dL [facility] Comment: Supplemental ranges: <140 [...] [facility]/[place]IP [place] [address] XR Chest PA or [...] Signature POC Glucose 161 65 - 199 [facility] mg/dL [facility] LABORATORY Comment: Supplemental ranges: <140 mg/dL before meals <180 mg/dL all other times of the day Specimen Anatomical Collection Method Collection Time Receive d Time (Source) Location / / Volume Laterality Blood specimen 07/07/2017 12:07 7 (specimen) AM EST 12:07 AM EST Daphne Shahid MD POINT OF CARE TEST ORDERABLE S Performing Organization Address City/State/ZIP Code Phon e Number [address] (ABNORMAL) APTT (07/07/2017 12:00 [...] Address City/State/ZIP Code Phon e Number [address] POCT Glucose (07/06/2017 9:55 PM EST) athologist Signature POC Glucose 109 65 - 199 [facility] [place] mg/dL [facility] LABORATORY Comment: Supplemental ranges: <140 mg/dL before meals <180 mg/dL all other times of the day Specimen Anatomical Collection Method Collection Time Receive d Time (Source) Location / / Volume Laterality Blood specimen 07/06/2017 9:55 PM 017 9:55 (specimen) EST PM EST Daphne Shahid MD POINT OF CARE TEST ORDERABLE S Performing Organization Address City/State/ZIP Code Phon e Number [address] POCT Glucose (07/06/2017 9:04 PM EST) athologist Signature POC Glucose 120 65 - 199 [facility]dL [facility] LABORATORY Comment: Supplemental ranges: <140 mg/dL before meals <180 mg/dL all other times of the day Specimen Anatomical Collection Method Collection Time Receive d Time (Source) Location / / Volume Laterality Blood specimen 07/06/2017 9:04 PM 017 9:04 (specimen) EST PM EST Daphne Shahid MD POINT OF CARE TEST ORDERABLE S Performing Organization Address City/State/ZIP Code Phon e Number [address] POCT Glucose (07/06/2017 7:45 PM EST) athologist Signature POC Glucose 158 65 - 199 [facility] [place] mg/dL [facility] LABORATORY Comment: Supplemental ranges: <140 mg/dL before meals <180 mg/dL all other times of the day Specimen Anatomical Collection Method Collection Time Receive d Time (Source) Location / / Volume Laterality Blood specimen 07/06/2017 7:45 PM 017 7:45 (specimen) EST PM EST Daphne Shahid MD POINT OF CARE TEST ORDERABLE S Performing Organization Address City/State/[place] [address] Potassium (07/06/2017 7:40 PM EST) athologist Signature Potassium 3.9 3.5 - 5.0 [facility] mmol/L [facility] LABORATORY Comment: Please note: ??Patients [...] City/State/ZIP Code Phon e Number [place] [id number] (ABNORMAL) Cardiac Enzymes (LEB/CGP) (07/06/2017 7:40 PM EST) athologist Signature Troponin-T 2.27 (H) 0.00 - [place] 0.00 ng/mL [facility] LABORATORY Comment: The 99th percentile [...] additional sample may be indicated. Reference: Third Alvarado Definition of Myocardial Infarction. Journal of the [employer] 2012;60:1581-98 CK, Total 93 [...] [facility]/[place]IP [place] [address] (ABNORMAL) POCT Glucose (07/06/2017 7:13 PM EST) P athologist Signature POC Glucose 200 (H) 65 - 199 [facility] mg/dL [facility] LABORATORY Comment: Supplemental ranges: <140 mg/dL before meals <180 mg/dL all other times of the day Specimen Anatomical Collection Method Collection Time Receive d Time (Source) Location / / Volume Laterality Blood specimen 07/06/2017 7:13 PM 017 7:13 (specimen) EST PM EST Daphne Shahid MD POINT OF CARE TEST ORDERABLE S Performing Organization Address City/[facility] [place] [address] (ABNORMAL) APTT (07/06/2017 6:15 [...] [facility]/ZIP Code Phon e Number [address] (ABNORMAL) POCT Glucose (07/06/2017 6:03 PM EST) athologist Signature POC Glucose 236 (H) 65 - 199 [facility] mg/dL [facility] LABORATORY Comment: Supplemental ranges: <140 mg/dL before meals <180 mg/dL all other times of the day Specimen Anatomical Collection Method Collection Time Receive d Time (Source) Location / / Volume Laterality Blood specimen 07/06/2017 6:03 PM 017 6:03 (specimen) EST PM EST Daphne Shahid MD POINT OF CARE TEST ORDERABLE S Performing Organization Address City/State/ZIP [place] [address] (ABNORMAL) POCT Glucose (07/06/2017 5:01 PM EST) athologist Signature POC Glucose 235 (H) 65 - 199 [facility] mg/dL [facility] LABORATORY Comment: Supplemental ranges: <140 mg/dL before meals <180 mg/dL all other times of the day Specimen Anatomical Collection Method Collection Time Receive d Time (Source) Location / / Volume Laterality Blood specimen 07/06/2017 5:01 PM 017 5:01 (specimen) EST PM EST Daphne Shahid MD POINT OF CARE TEST ORDERABLE S Performing Organization Address City/State/ZIP [place] [address] (ABNORMAL) POCT Glucose (07/06/2017 4:06 PM EST) athologist Signature POC Glucose 202 (H) 65 - 199 [facility] mg/dL [facility] LABORATORY Comment: Supplemental ranges: <140 mg/dL before meals <180 mg/dL all other times of the day Specimen Anatomical Collection Method Collection Time Receive d Time (Source) Location / / Volume Laterality Blood specimen 07/06/2017 4:06 PM 017 4:06 (specimen) EST PM EST Daphne Shahid MD POINT OF CARE TEST ORDERABLE S Performing Organization Address City/State/ZIP [place] [address] POCT Glucose (07/06/2017 2:59 PM EST) athologist Signature POC Glucose 178 65 - [address] [facility] LABORATORY Comment: Supplemental ranges: <140 mg/dL before meals <180 mg/dL all other times of the day Specimen Anatomical Collection Method Collection Time Receive d Time (Source) Location / / Volume Laterality Blood specimen 07/06/2017 2:59 PM 017 2:59 (specimen) EST PM EST Daphne Shahid MD POINT OF CARE TEST ORDERABLE S Performing Organization Address City/State/ZIP Code Phon e Number [place] [id number] [facility] [address] Drive (ABNORMAL) Cardiac Enzymes (LEB/CGP) (07/06/2017 2:10 PM EST) athologist Signature Troponin-T 2.34 (H) 0.00 - [facility] 0.00 ng/mL [facility] LABORATORY Comment: The 99th percentile [...] additional sample may be indicated. Reference: Third Alvarado Definition of Myocardial Infarction. Journal of the [employer] 2012;60:1581-98 CK, Total 101 0 - 200 unit/L [facility] LABORATORY Specimen Anatomical Collection Method Collection Time Receive d Time (Source) Location / / Volume Laterality Blood specimen 07/06/2017 2:10 PM 017 2:26 (specimen) EST PM EST Resulting Agency Comment Spec In Lab Daphne Shahid MD CHEMISTRY ORDERABLES Performing Organization Address City/State/ZIP Code Phon e Number [address] POCT Glucose (07/06/2017 2:08 PM EST) athologist Signature POC Glucose 192 65 - 199 [place] mg/dL [facility] LABORATORY Comment: Supplemental ranges: <140 mg/dL before meals <180 mg/dL all other times of the day Specimen Anatomical Collection Method Collection Time Receive d Time (Source) Location / / Volume Laterality Blood specimen 07/06/2017 2:08 PM 017 2:08 (specimen) EST PM EST Daphne Shahid MD POINT OF CARE TEST ORDERABLE S Performing Organization Address City/State/ZIP Code Phon e Number [address] POCT Glucose (07/06/2017 1:04 PM EST) athologist Signature POC Glucose 162 65 - 199 [facility]/dL [facility] LABORATORY Comment: Supplemental ranges: <140 mg/dL before meals <180 mg/dL all other times of the day Specimen Anatomical Collection Method Collection Time Receive d Time (Source) Location / / Volume Laterality Blood specimen 07/06/2017 1:04 PM 017 1:04 (specimen) EST PM EST Daphne Shahid MD POINT OF CARE TEST ORDERABLE S Performing Organization Address City/State/ZIP Code Phon e Number [address] POCT Glucose (07/06/2017 12:05 PM EST) athologist Signature POC Glucose 196 65 - 199 [facility] mg/dL [facility] LABORATORY Comment: Supplemental ranges: <140 mg/dL before meals <180 mg/dL all other times of the day Specimen Anatomical Collection Method Collection Time Receive d Time (Source) Location / / Volume Laterality Blood specimen 07/06/2017 12:05 7 (specimen) PM EST 12:05 PM EST Daphne Shahid MD POINT OF CARE TEST ORDERABLE S Performing Organization Address [facility]/ZIP [place] [address] EKG 12 Lead (07/06/2017 12:00 PM EST) Component Value Ref Range Test Analysis Performed Pathologis t Method Time At Signature Ventricular rate 91 BPM MUSE SYSTEM Atrial Rate 91 BPM MUSE SYSTEM P-R Interval 140 ms MUSE SYSTEM QRS Duration 94 ms MUSE SYSTEM Q-T Interval 394 ms MUSE SYSTEM QTC Calculated 484 ms MUSE SYSTEM (Bezet) Calculated P [place] 36 degrees MUSE SYSTEM Calculated R [place] -19 degrees MUSE SYSTEM Calculated T [place] 104 degrees MUSE SYSTEM INTERPRETATION Normal sinus rhythm MUSE SYSTEM 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) ST & T wave abnormality, consider lateral ischemia Abnormal ECG When compared with ECG of 05-JUL-2017 20:39, No significant change was found Confirmed by MD Luci, Taurus Braun ([id number]) on 07/06/2017 5:07:33 PM Specimen Anatomical Collection Method Collection Time Receive d Time (Source) Location / / Volume Laterality 07/06/2017 12:00 07/06/2017 5:07 PM EST PM EST Daphne Shahid MD ECG ORDERABLES Performing Organization Address [facility]/ZIP Code Phon e Number MUSE SYSTEM ABORH Recheck Status (07/06/2017 12:00 PM EST) [facility] Method Time Signature ABORH Type Completed [facility] LABORATORY Specimen Anatomical Collection Method Collection Time Receive d Time (Source) Location / / Volume Laterality Blood specimen 07/06/2017 12:00 7 (specimen) PM EST 12:24 PM EST Resulting Agency Comment Spec In Lab Daphne Shahid MD BLOOD BANK ORDERABLES Performing Organization Address [facility]/ZIP [place] [address] Antibody screen (07/06/2017 12:00 PM EST) [facility] Method Time Signature Ab Screen Negative [facility] LABORATORY Expires at 07/09/2017 [facility] [id number] on: [facility] LABORATORY Specimen Anatomical Collection Method Collection Time Receive d Time (Source) Location / / Volume Laterality Blood specimen 07/06/2017 12:00 7 (specimen) PM EST 12:24 PM EST Resulting Agency Comment Spec In Lab Daphne Shahid MD BLOOD BANK ORDERABLES Performing Organization Address City/[facility]/ZIP [place] [address] ABO/Rh Typing (07/06/2017 12:00 [...] Performing Organization Address City/[facility] [place] [address] Prothrombin Time (07/06/2017 11:24 AM EST) P athologist Signature PT 13.3 11.8 - 14.0 [facility] LABORATORY INR 1.0 0.9 - 1.1 [facility]/ZIP Code Phon e Number [address] (ABNORMAL) APTT (07/06/2017 11:24 [...] Performing Organization Address City/[facility] Phon e Number [address] POCT Glucose (07/06/2017 11:02 AM EST) athologist Signature POC Glucose 187 65 - 199 [facility] mg/dL [facility] LABORATORY Comment: Supplemental ranges: <140 [...] [facility]/ZIP [place] [address] POCT Glucose (07/06/2017 10:18 AM EST) athologist Signature POC Glucose 193 65 - [address] [facility] LABORATORY Comment: Supplemental ranges: <140 mg/dL before meals <180 mg/dL all other times of the day Specimen Anatomical Collection Method Collection Time Receive d Time (Source) Location / / Volume Laterality Blood specimen 07/06/2017 10:18 7 (specimen) AM EST 10:18 AM EST Daphne Shahid MD POINT OF CARE TEST ORDERABLE S Performing Organization Address City/State/ZIP [place] [address] POCT Glucose (07/06/2017 9:25 AM EST) athologist Signature POC Glucose 182 65 - 199 [facility] LABORATORY Comment: Supplemental ranges: <140 mg/dL before meals <180 mg/dL all other times of the day Specimen Anatomical Collection Method Collection Time Receive d Time (Source) Location / / Volume Laterality Blood specimen 07/06/2017 9:25 AM 017 9:25 (specimen) EST AM EST Daphne Shahid MD POINT OF CARE TEST ORDERABLE S Performing Organization Address City/State/ZIP Code Phon e Number [address] (ABNORMAL) Cardiac Enzymes (LEB/CGP) (07/06/2017 8:10 AM EST) athologist BIXI Troponin-T 2.26 (H) 0.00 - [facility] ng/mL [facility] LABORATORY Comment: The 99th percentile [...] additional sample may be indicated. Reference: Third Alvarado Definition of Myocardial Infarction. Journal of the [place] [employer] 2012;60:1581-98 CK, Total 124 [...] [facility]/ZIP Code Phon e Number [address] Magnesium (07/06/2017 8:10 AM EST) P athologist Signature Magnesium 0.84 0.69 - 1.07 [facility] mmol/L [facility] LABORATORY Specimen Anatomical Collection Method Collection Time Receive d Time (Source) Location / / Volume Laterality Blood specimen 07/06/2017 8:10 AM 017 8:21 (specimen) EST AM EST Resulting Agency Comment Spec In Lab Daphne Shahid MD CHEMISTRY ORDERABLES Performing Organization Address City/[facility]/ZIP Code Phon e Number [address] (ABNORMAL) Basic Metabolic Panel (non-fasting) (07/06/2017 8:10 AM EST) P athologist Signature Glucose Lvl 199 65 - 199 [facility] mg/dL [facility] LABORATORY Comment: Diabetes: >=200 mg/dL [...] or in patients with acute kidney failure. [email or web address] [email or web address] Specimen Anatomical Collection Method Collection Time Receive d Time (Source) Location / / Volume Laterality Blood specimen 07/06/2017 8:10 AM 017 8:21 (specimen) EST AM EST Resulting Agency Comment Spec In Lab Daphne Shahid MD CHEMISTRY ORDERABLES Performing Organization Address City/[facility]/ZIP Code Phon e Number [address] POCT Glucose (07/06/2017 7:34 AM EST) athologist Signature POC Glucose 198 65 - [address] [facility] LABORATORY Comment: Supplemental ranges: <140 mg/dL before meals <180 mg/dL all other times of the day Specimen Anatomical Collection Method Collection Time Receive d Time (Source) Location / / Volume Laterality Blood specimen 07/06/2017 7:34 AM 017 7:34 (specimen) EST AM EST Daphne Shahid MD POINT OF CARE TEST ORDERABLE S Performing Organization Address City/State/ZIP Code Phon e Number [address] POCT Glucose (07/06/2017 7:03 AM EST) athologist Signature POC Glucose 181 65 - [address] [facility] LABORATORY Comment: Supplemental ranges: <140 mg/dL before meals <180 mg/dL all other times of the day Specimen Anatomical Collection Method Collection Time Receive d Time (Source) Location / / Volume Laterality Blood specimen 07/06/2017 7:03 AM 017 7:03 (specimen) EST AM EST Daphne Shahid MD POINT OF CARE TEST ORDERABLE S Performing Organization Address City/State/ZIP Code Phon e Number [place] [phone]OS[address] XR Chest PA or [...] Signature POC Glucose 172 65 - 199 [facility] [place] mg/dL [facility] LABORATORY Comment: Supplemental ranges: <140 mg/dL before meals <180 mg/dL all other times of the day Specimen Anatomical Collection Method Collection Time Receive d Time (Source) Location / / Volume Laterality Blood specimen 07/06/2017 6:21 AM 017 6:21 (specimen) EST AM EST Daphne Shahid MD POINT OF CARE TEST ORDERABLE S Performing Organization Address City/State/ZIP Code Phon e Number [address] POCT Glucose (07/06/2017 5:08 AM EST) athologist Signature POC Glucose 154 65 - 199 [facility] mg/dL [facility] LABORATORY Comment: Supplemental ranges: <140 mg/dL before meals <180 mg/dL all other times of the day Specimen Anatomical Collection Method Collection Time Receive d Time (Source) Location / / Volume Laterality Blood specimen 07/06/2017 5:08 AM 017 5:08 (specimen) EST AM EST Daphne Shahid MD POINT OF CARE TEST ORDERABLE S Performing Organization Address City/State/ZIP [place] [address] POCT Glucose (07/06/2017 4:05 AM EST) athologist Signature POC Glucose 142 65 - 199 [facility] mg/dL [facility] LABORATORY Comment: Supplemental ranges: <140 mg/dL before meals <180 mg/dL all other times of the day Specimen Anatomical Collection Method Collection Time Receive d Time (Source) Location / / Volume Laterality Blood specimen 07/06/2017 4:05 AM 017 4:05 (specimen) EST AM EST Daphne Shahid MD POINT OF CARE TEST ORDERABLE S Performing Organization Address City/State/ZIP [place] [address] POCT Glucose (07/06/2017 3:00 AM EST) athologist [facility] POC Glucose 116 65 - [address] [facility] LABORATORY Comment: Supplemental ranges: <140 mg/dL before meals <180 mg/dL all other times of the day Specimen Anatomical Collection Method Collection Time Receive d Time (Source) Location / / Volume Laterality Blood specimen 07/06/2017 3:00 AM 017 3:00 (specimen) EST AM EST Daphne Shahid MD POINT OF CARE TEST ORDERABLE S Performing Organization Address City/[facility] Phon e Number [address] Potassium (07/06/2017 2:20 AM EST) [facility] Potassium 3.9 3.5 - 5.0 [facility] mmol/L [facility] LABORATORY Comment: Please note: ??Patients [...] Performing Organization Address City/[facility] Phon e Number [address] Differential, Automated (07/06/2017 2:20 AM EST) [facility] Neutrophils % 72.9 % [facility] LABORATORY Neutr Abs (ANC) 5.53 1.70 - [facility] 6.10 [facility] x10(3)/[facility] LABORATORY Lymphocytes % 16.4 % [facility] LABORATORY Lymphocytes Abs 1.2 0.9 - 3.2 [facility] x10(3)/[facility] LABORATORY Monocytes % 9.4 % [facility] LABORATORY Monocyte Abs 0.7 0.3 - 0.9 [facility] x10(3)/[facility] LABORATORY Eosinophils % 0.5 % [facility] LABORATORY Eosinophils Abs 0.0 0.0 - 0.4 [facility] x10(3)/[facility] LABORATORY Basophils % 0.4 % [facility] LABORATORY Basophils Abs 0.0 0.0 - 0.1 [facility] x10(3)/[facility] LABORATORY Immature Gran [...] Melisa Gran Abs 0.03 0.00 - 0.04 x10(3)/[facility] MAR Y [facility] LABORATORY Specimen Anatomical Collection Method Collection Time Receive d Time (Source) Location / / Volume Laterality Blood specimen 07/06/2017 2:20 AM 017 2:33 (specimen) EST AM EST Resulting Agency Comment Spec In Lab Daphne Shahid MD HEMATOLOGY ORDERABLES Performing Organization Address City/State/ZIP [place] [address] (ABNORMAL) Hemogram (07/06/2017 2:20 AM EST) Analysis Performed At Patho logist Time Signature WBC 7.6 4.0 - 9.5 [facility] x10(3)/[facility] LABORATORY RBC 4.52 (L) 4.58 - [facility] 5.54 [facility] x10(6)/[facility] LABORATORY Hemoglobin 13.4 (L) 13.7 - [facility] 16.5 gm/dL [facility] LABORATORY Hematocrit 39.7 (L) 40.5 - [facility] 48.5 % [facility] LABORATORY MCV 87.8 82.9 [facility].1 fL [facility] LABORATORY MCH 29.6 27.5 - [facility] 32.1 pg [facility] LABORATORY MCHC 33.8 32.0 - [facility] 35.7 gm/dL [facility] LABORATORY Platelets 189 145 - 357 [facility] x10(3)/[facility] LABORATORY RDWSD 45.6 (H) 36.0 - [facility] 45.0 [facility] LABORATORY RDWCV 14.3 (H) 11.4 [facility] 13.8 % [facility] LABORATORY MPV 9.1 7.6 - 12.9 [facility] LABORATORY nRBC % Auto 0.0 % [facility] LABORATORY nRBC Abs Auto 0.000 0.000 - [facility] 0.000 [facility] x10(3)/[facility] LABORATORY Specimen Anatomical Collection Method Collection Time Receive d Time (Source) Location / / Volume Laterality Blood specimen 07/06/2017 2:20 AM 017 2:33 (specimen) EST AM EST Resulting Agency Comment Spec In Lab Daphne Shahid MD HEMATOLOGY ORDERABLES Performing Organization Address City/[facility]/ZIP Code Phon e Number [address] (ABNORMAL) APTT (07/06/2017 2:20 [...] [facility]/ZIP Code Phon e Number [address] POCT Glucose (07/06/2017 2:20 AM EST) P athologist Signature POC Glucose 115 65 - 199 [facility] mg/dL [facility] LABORATORY Comment: Supplemental ranges: <140 [...] [facility]/ZIP [place] [address] (ABNORMAL) Cardiac Enzymes (LEB/CGP) (07/06/2017 2:20 AM EST) athologist Signature Troponin-T 2.13 (H) 0.00 - [facility] 0.00 ng/mL [facility] LABORATORY Comment: The 99th percentile [...] additional sample may be indicated. Reference: Third Alvarado Definition of Myocardial Infarction. Journal of the [employer] 2012;60:1581-98 CK, Total 129 0 - 200 unit/L [facility] LABORATORY Specimen Anatomical Collection Method Collection Time Receive d Time (Source) Location / / Volume Laterality Blood specimen 07/06/2017 2:20 AM 017 2:33 (specimen) EST AM EST Resulting Agency Comment Spec In Lab Daphne Shahid MD CHEMISTRY ORDERABLES Performing Organization Address City/State/ZIP [place] [address] (ABNORMAL) Hemoglobin A1c (07/06/2017 2:20 AM EST) Analysis Performed At [facility] Time Signature Hemoglobin A1C 6.8 (H) 4.3 - 5.6 [facility] [facility] Comment: Reference Range: 4.3 - [...] Mellitus, Diabetes Care 2013; 36: Suppl. 1, L57-31 Est Avg Gluc See note mg/dL [facility] Comment: Estimated Average Glucose not [...] into estimated average glucose values. ??Diabetes Care 2008:31(8):7694-0087. Specimen Anatomical Collection Method Collection Time Receive d Time (Source) Location / / Volume Laterality Blood specimen 07/06/2017 2:20 AM 017 2:34 (specimen) EST AM EST Resulting Agency Comment Spec In Lab Daphne Shahid MD CHEMISTRY ORDERABLES Performing Organization Address City/State/ZIP [place] [address] (ABNORMAL) Lipid Panel (07/06/2017 2:20 AM EST) [facility] gist Method Time Signature Chol, Total 150 <=239 [facility] mg/dL [facility] Triglycerides 129 <=199 [facility] mg/dL [facility] HDL 32 (L) >=40 [facility] mg/dL [facility] LDL Cholesterol 92 <=190 [facility] mg/dL [facility] Chol/HDL Ratio 4.7 ratio [facility] Lipid See Note KATALINA Interpretation [facility] Comment: Lipid management should be guided by a p atient? s ASCVD risk, goals and preferences. ACC/AHA Guidelines recommend high intens ity statin if clinical ASCVD or LDL greater than or equal to 190 mg/dL. [email or web address]-FPH-Lufwjkccq Adults aged 40-75 with LDL 70-189 mg/dL should have their 10 year ASCVD risk estimated with the ACC/AHA ASCVD risk es timator http://tools.acc.org/ZVIFT-Hdpy-Lepvujri r/ Statin should be discussed if risk [...] [facility]/ZIP Code Phon e Number [address] POCT Glucose (07/06/2017 1:09 AM EST) P athologist Signature POC Glucose 121 65 - 199 [place] RYAN mg/dL [facility] Comment: Supplemental ranges: <140 [...] [facility]/ZIP Code Phon e Number [address] POCT Glucose (07/06/2017 12:06 AM EST) P athologist Signature POC Glucose 147 65 - 199 [facility] RYAN mg/dL [facility] Comment: Supplemental ranges: <140 [...] [facility]/ZIP Code Phon e Number [address] (ABNORMAL) POCT Glucose (07/05/2017 10:56 PM EST) P athologist Signature POC Glucose 200 (H) 65 - 199 [facility] RYAN mg/dL [facility] Comment: Supplemental ranges: <140 mg/dL before meals <180 mg/dL all other times of the day Specimen Anatomical Collection Method Collection Time Receive d Time (Source) Location / / Volume Laterality Blood specimen 07/05/2017 10:56 7 (specimen) PM EST 10:56 PM EST Daphne Shahid MD POINT OF CARE TEST ORDERABLE S Performing Organization Address City/State/ZIP [place] [address] (ABNORMAL) POCT Glucose (07/05/2017 10:05 PM EST) P athologist Signature POC Glucose 225 (H) 65 - [address] [facility] Comment: Supplemental ranges: <140 [...] [facility]/ZIP [place] [address] (ABNORMAL) POCT Glucose (07/05/2017 9:02 PM EST) athologist Signature POC Glucose 301 (H) 65 - 199 [facility] mg/dL [facility] Comment: Supplemental ranges: <140 mg/dL before meals <180 mg/dL all other times of the day Specimen Anatomical Collection Method Collection Time Receive d Time (Source) Location / / Volume Laterality Blood specimen 07/05/2017 9:02 PM 017 9:02 (specimen) EST PM EST Daphne Shahid MD POINT OF CARE TEST ORDERABLE S Performing Organization Address City/State/ZIP [place] [address] XR Chest PA or [...] 474 ms MUSE SYSTEM (Bezet) Calculated P [place] 50 degrees MUSE SYSTEM Calculated R [place] -28 degrees MUSE SYSTEM Calculated T [place] 90 degrees MUSE SYSTEM INTERPRETATION Sinus tachycardia [...] (ABNORMAL) Differential, Automated (07/05/2017 8:20 PM EST) [facility] Method Time Signature Neutrophils % 88.4 % [facility] Neutr Abs (ANC) 9.08 (H) 1.70 - [facility] 6.10 [facility] x10(3)/[facility] L LABORATORY Lymphocytes % 7.0 % [facility] Lymphocytes Abs 0.7 (L) 0.9 - 3.2 [facility] x10(3)/[facility] LABORATORY Monocytes % 3.7 % [facility] Monocyte Abs 0.4 0.3 - 0.9 [facility] x10(3)/[facility] LABORATORY Eosinophils % 0.1 % [facility] Eosinophils Abs 0.0 0.0 - 0.4 [facility] x10(3)/[facility] LABORATORY Basophils % 0.2 % [facility] Basophils Abs 0.0 0.0 - 0.1 [facility] x10(3)/[facility] LABORATORY Immature Gran [...] Organization Address City/State/ZIP [place] [address] (ABNORMAL) Hemogram (07/05/2017 8:20 PM EST) Analysis Performed At Patho logist Time Signature WBC 10.3 (H) 4.0 - 9.5 [facility] x10(3)/[facility] LABORATORY RBC 4.64 4.58 - [facility] 5.54 [facility] x10(6)/[facility] LABORATORY Hemoglobin 14.1 13.7 [facility] 16.5 gm/dL [facility]ORY Hematocrit 40.8 40.5 - [facility] 48.5 % [facility]ATORY MCV 87.9 82.9 - [facility] 93.1 [facility] LABORATORY MCH 30.4 27.5 - [facility] 32.1 pg [facility] LABORATORY MCHC 34.6 32.0 - [facility] 35.7 gm/dL [facility]ATORY Platelets 204 145 - 357 [facility] x10(3)/[facility] LABORATORY RDWSD 46.1 (H) 36.0 - [facility] 45.0 [facility] LABORATORY RDWCV 14.5 (H) 11.4 - [facility] 13.8 % [facility] LABORATORY MPV 9.7 7.6 - 12.9 [facility] LABORATORY nRBC % Auto 0.0 % [facility] nRBC Abs Auto 0.000 0.000 - [facility] 0.000 [facility] x10(3)/[facility] LABORATORY Specimen Anatomical Collection Method Collection Time Receive d Time (Source) Location / / Volume Laterality Blood specimen 07/05/2017 8:20 PM 017 8:27 (specimen) EST PM EST Resulting Agency Comment Spec In Lab Daphne Shahid MD HEMATOLOGY ORDERABLES Performing Organization Address City/State/ZIP [place] [address] APTT (07/05/2017 8:20 PM [...] Organization Address City/State/ZIP [place] [address] (ABNORMAL) Cardiac Enzymes (LEB/CGP) (07/05/2017 8:20 PM EST) athologist Signature Troponin-T 2.11 (H) 0.00 - [facility] 0.00 ng/mL [facility] Comment: The 99th percentile [...] additional sample may be indicated. Reference: Third Alvarado Definition of Myocardial Infarction. Journal of the [employer] College [employer] 2012;60:1581-98 CK, Total 149 0 - 200 unit/L [facility] Specimen Anatomical Collection Method Collection Time Receive d Time (Source) Location / / Volume Laterality Blood specimen 07/05/2017 8:20 PM 017 8:27 (specimen) EST PM EST Resulting Agency Comment Spec In Lab Daphne Shahid MD CHEMISTRY ORDERABLES Performing Organization Address City/State/ZIP Code Phon e Number [address] (ABNORMAL) Magnesium (07/05/2017 8:20 PM EST) P athologist Signature Magnesium 0.68 (L) 0.69 - 1.07 [facility] mmol/L [facility]ORY Specimen Anatomical Collection Method Collection Time Receive d Time (Source) Location / / Volume Laterality Blood specimen 07/05/2017 8:20 PM 017 8:27 (specimen) EST PM EST Resulting Agency Comment Spec In Lab Daphne Shahid MD CHEMISTRY ORDERABLES Performing Organization Address City/[facility]/ZIP Code Phon e Number [address] (ABNORMAL) Basic Metabolic Panel (non-fasting) (07/05/2017 8:20 PM EST) athologist Signature Glucose Lvl 321 (H) 65 - 199 [facility] mg/dL [facility] Comment: Diabetes: >=200 mg/dL [...] or in patients with acute kidney failure. [email or web address] [email or web address] [email or web address] Specimen Anatomical Collection Method Collection Time Receive d Time (Source) Location / / Volume Laterality Blood specimen 07/05/2017 8:20 PM 017 8:27 (specimen) EST PM EST Resulting Agency Comment Spec In Lab Daphne Shahid MD CHEMISTRY ORDERABLES Performing Organization Address City/State/ZIP Code Phon e Number [address] (ABNORMAL) POCT Glucose (07/05/2017 7:32 PM EST) P athologist Signature POC Glucose 296 (H) 65 - 199 [facility] mg/dL [facility] Comment: Supplemental ranges: <140 mg/dL before meals <180 mg/dL all other times of the day Specimen Anatomical Collection Method Collection Time Receive d Time (Source) Location / / Volume Laterality Blood specimen 07/05/2017 7:32 PM 017 7:32 (specimen) EST PM EST Daphne Shahid MD POINT OF CARE TEST ORDERABLE S Performing Organization Address City/State/ZIP [place] [address] CARDIAC CATHETERIZATION (07/05/2017 6:47 PM EST) Specimen (Source) Anatomical Location Collection Method / Collectio n Time Received Time / Laterality Volume Narrative CARDIOMAC SYSTEM - 07/05/2017 7:27 PM ES T ?[facility] ? Cardiac Cathete rization/Intervention Report ? Patient Name: Gregory Hoang ? Procedure Date: 07/05/2017 ? A #: [id number] ? Primary Physician: Clarisa, Jet T ? Case #: [id number] ? File Name: [id number] ? Catheterization Order Number: [id number] ? [facility] ? Final Report [place], [place] ? Patient Name: ? Gregory Natalya ?ID#: ?[id number] ? : ?1945 ? Procedure Date: ? June 11 17 ?Case #: ? [id number] ? Room: ? 6 ? Case Physician: [...] presented with: non -STEMI (w/i 7 days). [place] ?[employer]iovascular Society angina c lass was IV. [...] angio graphy and IABP insertion in label pinker. ? eJt Mckenna M.D. ? Electronically Signed by: Jet bunch M.D. ? Report Finalized: 07/05/2017 ??19:23 ? Report Last Ammended: 10/26/2017 ??10:29 ? Procedure Note Jet Mckenna MD - 10/26/2017Formatt ing of this note might be different from the original. [facility] Cardiac Catheterization/Intervention Re port Patient Name: Gregory Hoang Procedure Date: 07/05/2017 A #: [id number] Primary Physician: Jet Mckenna Case #: [id number] File Name: [id number] Catheterization Order Number: [id number] [facility] Final Report [place], [place] Patient Name: Gregory Hoang ID#: [id number] : 1945 Procedure Date: July 05, [...] presented with: non-STEMI ( w/i 7 days). [place] [employer] angina class was IV. No [...] angiograph y and IABP insertion in label pinker. Jet Mckenna M.D. Electronically Signed by: Jet [...] Mccollum ? (Age): 1945(72y) Med Rec#: ? [id number] ?Sex: ?M ? Site Loc: ? [facility] ?Ht / Wt: ??173(cm)/86(kg) Pt. Loc: ?CCU ? BSA: ?2 Study Date: ?? 07/05/2017 ?Pt. Type: Inpatient Tape: ? Referring: Daphne Shahid ([id number]) Referring: MANDA ALCANTAR Reading: Blade Preston ([id number]) Customer Engineering Specialist: Dayami Paula BA, [facility] Diagnosis: *ICD-10-PCS Non-ST elevation (NSTEMI) m [...] urgitation. Mitral Valve: ? The mitral valve egra ears normal in structure and function. ?There [...] E-wave Vmax ?0.8 ?m/sec ? MV deceleration [id number] ?msec ? MV A-wave Vmax ?0.8 ?m/sec [...] ? Mid-Inferior ?Akinetic ? Mid-Inferoseptal ?Hypokinetic ? [place]-Septal ? Akinetic ? [place]-Anterior ? Hypokinetic ? [place]-Lateral ?Hypokinetic ? [place]-Inferior ? Akinetic ? [place]-Tip ?Akinetic ? This report has been electronically sign ed by: _ Blade Preston MD ? 07/06/2017 08 :53:15 Images reviewed and interpretation verif ied [facility] Cardiac Ultrasound Laboratory Procedure Note Blade Preston MD - 07/06/2017Formatt ing of this note might be different from the original. Procedure: Transthoracic Echocardiogram Patient: NATALYA MCBRIDE(Age): [birth year]72y) Med Rec#: [id number] Sex: M Site Loc: [facility] Ht / Wt: 173(cm)/86(kg) Pt. Loc: CCU BSA: 2 Study Date: 07/05/2017 Pt. Type: Inpatie nt Tape: Referring: Daphne Shahid ([id number]) Referring: MANDA ALCANTAR Reading: Blade Preston ([id number]) Customer Engineering Specialist: Dayami Paula BA, [facility] Diagnosis: *ICD-10-PCS Non-ST elevation (NSTEMI) m [...] MV E-wave Vmax 0.8 m/sec MV deceleration [id number] msec MV A-wave Vmax 0.8 m/sec MV [...] Hypokinetic Mid-Posterolateral Hypokinetic Mid-Inferior Akinetic Mid-Inferoseptal Hypokinetic [place]-Septal Akinetic [place]-Anterior Hypokinetic [place]-Lateral Hypokinetic [place]-Inferior Akinetic [place]-Tip Akinetic This report has been electronically sign ed by: _ Blade Preston MD 07/06/2017 08:53:15 Images reviewed and interpretation verif ied [facility] Cardiac Ultrasound Laboratory Daphne Shahid MD ECHO ORDERABLES Performing Organization Address City/State/ZIP Code Phon e Number [facility] Differential, Automated (07/05/2017 4:55 PM EST) P athologist Signature Neutrophils % 77.0 % [facility] Neutr Abs (ANC) 5.26 1.70 - [facility] 6.10 [facility] x10(3)/[facility] LABORATORY Lymphocytes % 13.3 % [facility] Lymphocytes Abs 0.9 0.9 - 3.2 [facility] x10(3)/[facility] LABORATORY Monocytes % 8.2 % [facility] Monocyte Abs 0.6 0.3 - 0.9 [facility] x10(3)/[facility] LABORATORY Eosinophils % 0.7 % [facility] Eosinophils Abs 0.0 0.0 - 0.4 [facility] x10(3)/[facility] LABORATORY Basophils % 0.4 % [facility] Basophils Abs 0.0 0.0 - 0.1 [facility] x10(3)/[facility] LABORATORY Immature Gran [...] Melisa Gran Abs 0.03 0.00 - 0.04 x10(3)/[facility] MAR Y [facility] LABORATORY Specimen Anatomical Collection Method Collection Time Receive d Time (Source) Location / / Volume Laterality Blood specimen 07/05/2017 4:55 PM 017 5:24 (specimen) EST PM EST Resulting Agency Comment Spec In Lab Daphne Shahid MD HEMATOLOGY ORDERABLES Performing Organization Address City/State/ZIP [place] [address] (ABNORMAL) Hemogram (07/05/2017 4:55 PM EST) Analysis Performed At Patho logist Time Signature WBC 6.8 4.0 - 9.5 [facility] x10(3)/[facility] LABORATORY RBC 4.67 4.58 - [facility] 5.54 [facility] x10(6)/[facility] LABORATORY Hemoglobin 14.0 13.7 - [facility] 16.5 gm/dL [facility]ORY Hematocrit 41.0 40.5 - [facility] 48.5 % [facility]ORY MCV 87.8 82.9 - [facility] 93.1 fL [facility]ATORY MCH 30.0 27.5 - [facility] 32.1 pg [facility] MCHC 34.1 32.0 - [place] 35.7 gm/dL [facility] LABORATORY Platelets 197 145 - 357 [place] x10(3)/[facility] LABORATORY RDWSD 46.4 (H) 36.0 - [place] 45.0 [facility] LABORATORY RDWCV 14.5 (H) 11.4 - [place] 13.8 % [facility] LABORATORY MPV 9.7 7.6 - 12.9 [place] [facility] LABORATORY nRBC % Auto 0.0 % [facility]ORY nRBC Abs Auto 0.000 0.000 - [place] 0.000 [facility] x10(3)/[facility] LABORATORY Specimen Anatomical Collection Method Collection Time Receive d Time (Source) Location / / Volume Laterality Blood specimen 07/05/2017 4:55 PM 017 5:24 (specimen) EST PM EST Resulting Agency Comment Spec In Lab Daphne Shahid MD HEMATOLOGY ORDERABLES Performing Organization Address City/State/ZIP Code Phon e Number [facility] [place] [address] (ABNORMAL) Cardiac Enzymes (LEB/CGP) (07/05/2017 4:55 PM EST) P athologist Signature Troponin-T 1.69 (H) 0.00 - [place] 0.00 ng/mL [facility] Comment: The 99th percentile [...] additional sample may be indicated. Reference: Third Alvarado Definition of Myocardial Infarction. Journal of the [place] College [employer] Cardiology 2012;60:1581-98 CK, Total 191 0 - 200 unit/L [facility] Specimen Anatomical Collection Method Collection Time Receive d Time (Source) Location / / Volume Laterality Blood specimen 07/05/2017 4:55 PM 017 5:56 (specimen) EST PM EST Resulting Agency Comment Spec In Lab Daphne Shahid MD CHEMISTRY ORDERABLES Performing Organization Address City/[facility] [place] [address] (ABNORMAL) pro-Brain Natriuretic Peptide (07/05/2017 4:55 PM EST) P athologist Signature ProBNP 1,598 (H) <=125 [facility]/mL [facility] Specimen Anatomical Collection Method Collection Time Receive d Time (Source) Location / / Volume Laterality Blood specimen 07/05/2017 4:55 PM 017 5:24 (specimen) EST PM EST Resulting Agency Comment Spec In Lab Daphne Shahid MD CHEMISTRY ORDERABLES Performing Organization Address City/[facility] [place] [address] Magnesium (07/05/2017 4:55 PM EST) P athologist Signature Magnesium 0.78 0.69 - 1.07 [facility] mmol/L [facility] Specimen Anatomical Collection Method Collection Time Receive d Time (Source) Location / / Volume Laterality Blood specimen 07/05/2017 4:55 PM 017 5:24 (specimen) EST PM EST Resulting Agency Comment Spec In Lab Daphne Shahid MD CHEMISTRY ORDERABLES Performing Organization Address City/[facility]/ZIP [facility] [place] [address] (ABNORMAL) Basic Metabolic Panel (non-fasting) (07/05/2017 4:55 PM EST) athologist Signature Glucose Lvl 230 (H) 65 - 199 [facility] mg/dL [facility] Comment: Diabetes: >=200 mg/dL [...] or in patients with acute kidney failure. [email or web address] [email or web address] Specimen Anatomical Collection Method Collection Time Receive d Time (Source) Location / / Volume Laterality Blood specimen 07/05/2017 4:55 PM 017 5:24 (specimen) EST PM EST Resulting Agency Comment Spec In Lab Daphne Shahid MD CHEMISTRY ORDERABLES Performing Organization Address City/State/ZIP [place] [address] (ABNORMAL) APTT (07/05/2017 4:55 [...] [facility]/ZIP Code Phon e Number [address] (ABNORMAL) POCT Glucose (07/05/2017 4:53 PM EST) P athologist Signature POC Glucose 208 (H) 65 - 199 [facility] mg/dL [facility] Comment: Supplemental ranges: <140 mg/dL before meals <180 mg/dL all other times of the day Specimen Anatomical Collection Method Collection Time Receive d Time (Source) Location / / Volume Laterality Blood specimen 07/05/2017 4:53 PM 017 4:53 (specimen) EST PM EST Daphne Shahid MD POINT OF CARE TEST ORDERABLE S Performing Organization Address City/[facility] [place] [address] EKG 12 Lead (07/05/2017 4:32 PM EST) Component Value Ref Range Test Analysis Performed Pathologis t Method Time At Signature Ventricular rate 97 BPM MUSE SYSTEM Atrial Rate 97 BPM MUSE SYSTEM P-R Interval 148 ms MUSE SYSTEM QRS Duration 96 ms MUSE SYSTEM Q-T Interval 364 ms MUSE SYSTEM QTC Calculated 462 ms MUSE SYSTEM (Bezet) Calculated P [place] 48 degrees MUSE SYSTEM Calculated R [place] -33 degrees MUSE SYSTEM Calculated T [place] 98 degrees MUSE SYSTEM INTERPRETATION Normal sinus [...] Organization Address City/State/ZIP Code Phon e Number [employer] documented in this encounter Visit Diagnoses Diagnosis STEMI (ST elevation myocardial infarctio n) - Primary Acute myocardial infarction, unspecified site, episode of care unspecified Non-ST elevation myocardial infarction ( NSTEMI) Acute myocardial infarction, subendocard ial infarction, episode of care unspecified S/P CABG x 3 Postsurgical aortocoronary bypass status ASHD (arteriosclerotic heart disease) Coronary atherosclerosis of unspecified type of vessel, saxman or graft Cardiomyopathy, ischemic Other specified forms [...] post-op day 1 in the AM Give ID if unable to take PO, Routine Given [...] dose on Wed07/07/17 at 2100, Until Discontinued, [place] teeth, Routine Given 07/08/2017 10:06 PM EST [...] or norepinephrine is ineffective. Call pager # [phone] if initiated. Rate/Dose Change 07/08/2017 7:01 PM [...] if phenyleprine and/or vasopressin ineffective.Call pager # [phone] if initiated., Routine Rate/Dose Change 07/09/2017 1:24 [...] 2.0 L/min/M2. Maximum volume 2 L. Call house visitor for additional fluid orders: pager #[phone]. Rate/Dose Verify 07/08/2017 4:00 AM EST 100 [...] post-op day 1 in the AM Give ID if unable to take PO, Routine atorvastatin [...] post-op day 1 in the AM Give ID if unable to take PO
Routine Group [...]
Routine documented in this encounter Care Teams Leather Goods Assembler Relationship Specialty Start Date End Date Lovely Vicente MD PCP - General 04/16/[address] [place] [address] [address] [place] [address] documented as of this encounter
--- OUTSIDE RECORDS SUMMARY | 2022-03-09 15:32 | XMS_ITS | Encounter Summary ---
:1945 Author Organization [facility] Address [facility] [place] [address] Care Team Providers Name Role Phone Lovely Vicente MD Primary Care Provider Reason for Visit Auth/Cert Specialty Diagnoses / Procedures Referred By Contact Refer red To Contact Diagnoses STEMI (ST elevation myocardial infarction) NSTEMI STEMI Procedures CARDIAC CATHETERIZATION NAYE IPI Referral ID Status Reason Start Date Expiration Date Visits Requ ested Visits Authorized [id number] 1 1 Encounter Details Date Type Department Care Team Description 07/07/2017 Surgery Main Operating Room Yuan Webber, @ CABG, USING ARTERIAL Barbara Ocampo MD GRAFT;SINGLE ARTERIAL Hospital [facility] GRAFT (WRVU 33.75) [facility] [address] [place]idd[place] [address] SURGERY [phone] [place], [place] [address] (Wo rk) Social History Tobacco [...] in this encounter Discharge Summaries Martha Teague, JACK SPINNER - 07/14/2017 9:38 AM EST Inpatient - Discharge Summary Patient Name: Gregory Hoang Patient Age: 72 y.o. Birthdate: 1945 Language: Iranian Race: White Ethnicity: Not nor Admit Date: 07/05/2017 Discharge Date: 07/14/2017 Attending Physician: Yuan Webber MD Follow-up Recommendations for Providers: Please continue routine management of cardiovascular risk factors including blood pressure, lipids, glucose, etc. Please note any changes to medications. Patient to follow-up with PCP, Lovely Vicetne MD, in 1-2 weeks. An appointment has been made for you on 07/22/2017, , @ 1:20p Patient to follow-up with Entry Level Software Developer/heart failure team in one week. An appointment will be made for you. You may call [phone] Patient to follow-up with Cardiac Surgery, Dr. Yuan Webber, in ~ 4 weeks with CXR, EKG. Inpatient Provider Contact Information: [facility] Section of Cardiac Surgery [facility] [place] [address] FAX [phone] Discharge Diagnoses (Hospital Problems) Primary Diagnoses: CAD [...] SETUP performed by Manny Mcknight MD at [facility] OR ??? PRO CABG, ARTERIAL, SINGLE N/A 07/07/2017 @CABG, USING ARTERIAL GRAFT;SINGLE ARTERIAL GRAFT (WRVU 33.75) performed by Yuan Webber MD at [facility] OR ??? PRO CABG, ARTERY-VEIN, TWO N/A 07/07/2017 @CABG, TWO VENOUS GRAFTS & ARTERIAL GRAFT (WRVU 7.93) performed by Yuan Webber MD at [facility] OR ??? PRO COLONOSCOPY, REMV LESN, SNARE 01/16/2014 COLONOSCOPY, POLYPECTOMY, REMOVAL LESION BY SNARE performed by Nohemi Jaimes MD at [facility] ENDOSCOPY ??? PRO ENDOSCOPY W/VIDEO-ASST VEIN HARVEST, CABG Right 07/07/2017 ENDOSCOPIC HARVEST VEIN(S) FOR CABG (WRVU 0.31) performed by Yuan Webber MD at [facility] OR ??? PRO THYROIDECTOMY 03/28/2013 THYROIDECTOMY, TOTAL OR COMPLETE performed by Manny Mcknight MD at [facility] OR Prior To Admission Medications Prescriptions Prior to Admission Medication Sig Dispense Refill Last Dose ??? levothyroxine (SYNTHROID) 175 mcg Tablet Take 1 tablet by mouth daily. 90 tablet 3 07/05/2017 [id number] ??? ascorbic acid, vitamin C, (VITAMIN C) [...] Course: Gregory Hoang was admitted to [facility] on 07/05/2017 via the Cardiology Service. During his hospital course, he was taken emergently to the research laboratory specialist for an ongoing STEMI. An IABP was [...] not take or discontinue any prescription or wrgx-lwp-iteuoya medications without asking your doctor or pharmacist [...] day to have your insulin doses adjusted. [facility] [place] Endocrine clinic office Discharge Instructions: Call your doctor if: You have a fever of greater than 101 degrees, shaking chills, if you develop redness or drainage from your incision sites, or if you have questions. Please call your surgeon's office if you have any discharge or drainage from your chest incision. Your surgeon, Dr. Yuan Webber and/or the Cardiac Surgery Physician Rn On Site Team may be reached at . Weight: [...] Yuan Webber. You may use a [place] Track or treadmill but avoid any pulling [...] with the surgeon. Do not ride motorcycles, Oilex's tractors or horses. Avoid the use of [...] should resume a low fat, low cholesterol, [place] Heart Association Diet/Diabetic diet. Driving: No driving [...] , @ 1:20p Patient to follow-up with Entry Level Software Developer/heart failure team in one week. Appointment will be made for you. You may call [phone] Patient to follow-up with Cardiac Surgery, Dr. [...] THREE L Lab 3L [facility] [phone] 09/07/2017 4:00 PM Luz Prescott MD Endocrinology at [facility] [phone] Future Orders Complete By Expires EKG 12 Lead [EKG1 Custom] 08/14/2017 02/13/2018 Process Instructions: Scheduling Instructions: Questions: Which DH location will this be performed?: [facility] Is a rhythm strip needed?: No If EKG Reason is Pre-op Evaluation, indicate diagnosis for surgery.: XR Chest PA & Lateral (Generic) [74701 [id number] Custom] 08/14/2017 02/13/2018 Process Instructions: Scheduling Instructions: Questions: Where will study be performed?: [facility] Portable exam?: Reason for exam and clinical history: CABG x 3 Other pertinent information: Stat read required?: Date of injury if applicable: Requested Time: Referral to Cardiac Rehab [BGF106 Custom] As directed Process Instructions: If no progress note charted, please enter Clinical details in comments. Scheduling Instructions: Questions: My question or request is: s/p CABG. Cardiac rehab at [facility] Referral to Home Health - at DISCHARGE [DGB3609 CPT(R)] As directed Process Instructions: Scheduling Instructions: Comments: DOCUMENTATION FOR VNA SERVICES (INCLUDING THOSE PATIENTS WITH MEDICARE COVERAGE REQUIRING HOME VNA SERVICES AND/OR HOSPICE SERVICES) PATIENT'S LOCATION: Gregory Hoang [address] [place] [address] [place] [id number] (home) Telephone Information: Courtroom Reporter's Name: self In discussion with the attending physician, it is certified that this patient is under their care and that they, or a Nurse Practitioner, or Physician Rn On Site who is working directly with them, had [...] [facility] ([facility] [place] [facility]-[place] in [place] PHONE: [phone] FAX: [phone] RN orders: Cardiopulmonary assessment, incisional assessment, assess vital signs, assessment of rehab progress, medication management and effectiveness, home safety evaluation. Please draw INR if indicated and send result to:Dr Vicente [phone] PT ORDERS: Continue rehab for endurance, gait stability and strength with mobility and transfers. Home safety evaluation. Home exercise program if appropriate. Start of Care Date:24-48 hours after discharge SPECIAL INSTRUCTIONS: For any follow up questions, needs, or issues please call the Cardiac Surgery Office at [phone] FOR MEDICARE ONLY: (please delete this section [...] noted. Questions: Agency name and contact information: [facility] Patient location post discharge: home What services are requested: Registered Nurse Physical Therapy Start date: Responsible MD post discharge contact info: PCP Arrangements for VNA/home care: As above. VN RN OR PCP TO PLEASE REMOVE CHEST TUBE SUTURES ON OR AFTER 07/17/2017 Signed: Martha Teague APRN [facility] Section of Cardiac Surgery [facility] [place] [phone] FAX [phone] Date: 07/14/2017 CC: MD Ivania Cr Betsy, PA [address] [place] [phone] documented in this encounter Discharge Instructions Discharge [...] day to have your insulin doses adjusted. [facility] [place] Endocrine clinic office Patient InstructionsStMartha mcdonald APRN [...] not take or discontinue any prescription or ijyz-ctm-liyjxjt medications without asking your doctor or pharmacist [...] day to have your insulin doses adjusted. [facility] [place] Endocrine clinic office ? Discharge Instructions: ?? Call your doctor if: You have a fever of greater than 101 degrees, shaking chills, if you develop redness or drainage from your incision sites, or if you have questions. Please call your surgeon's office if you have any discharge or drainage from your chest incision. Your surgeon, Dr. Yuan Webber and/or the Cardiac Surgery Physician Rn On Site Team may be reached at . ?? [...] Yuan Webber. You may use a [place] Track or treadmill but avoid any pulling [...] with the surgeon. Do not ride motorcycles, Oilex's tractors or horses. Avoid the use of [...] should resume a low fat, low cholesterol, [place]ym[place] Heart Association Diet/Diabetic diet. ?? Driving: No [...] @ 1:20p ?? Patient to follow-up with Entry Level Software Developer/heart failure team in one week. An appointment has been made for you, you can call [phone] ?? Patient to follow-up with Cardiac Surgery, [...] THREE L Lab 3L [facility] [phone] ?? 09/07/2017 4:00 PM Luz Prescott MD Endocrinology at [facility] [phone] Future Orders Complete By Expires ?? EKG 12 Lead [EKG1 Custom] 08/14/2017 02/13/2018 ?? Process Instructions: ? Scheduling Instructions: ? Questions: ? Which location will this be performed?: [facility] ?? Is a rhythm strip needed?: No ?? If EKG Reason is Pre-op Evaluation, indicate diagnosis for surgery.: ?? XR Chest PA & Lateral (Generic) [[id number] Custom] 08/14/2017 02/13/2018 ?? Process Instructions: ? Scheduling Instructions: ? Questions: ? Where will study be performed?: [facility] ?? Portable exam?: ?? Reason for exam and clinical history: CABG x 3 ?? Other pertinent information: ?? Stat read required?: ?? Date of injury if applicable: ?? Requested Time: ?? Referral to Cardiac Rehab [AOZ125 Custom] As directed ? Process Instructions: ?? [...] RN - 07/14/2017 2:34 PM EST The patient/pharmaceutical service representative has been provided a list of Home Health Agencies/DME vendors which serve their preferred geographic area. A letter describing our affiliations was reviewed with them and theywere educated about their right to choose where referrals are placed. Patient requests referral to [facility] [employer]. PHONE: [phone] FAX: [phone] Expected date of discharge: 07/14 Referral routed to the Nursing Educator for matching with agency/vendor and to [...] day to have your insulin doses adjusted. [facility] [place] Endocrine clinic office Kathie Carrera APRN [facility] [place] Endocrinology Diabetes Management Pager [phone] 20 minutes of this 35 minute visit was spent with the patient in counseling on diabetes and treatment plan, reviewing all glucose and insulin data as well as relevant laboratory results with the patient, and coordination of care on the inpatient unit including nursing and primary team. Zulma Power RN - 07/14/2017 10:30 AM EST The patient/pharmaceutical service representative has been provided a list of Home Health Agencies/DME vendors which serve their preferred geographic area. A letter describing our affiliations was reviewed with them and theywere educated about their right to choose where referrals are placed. Patient requests referral to : Yasmani [facility] ([facility] [place] [facility]-is in [place]) PHONE: [phone] FAX: [phone]. Expected date of discharge: 07/14/17 Referral routed to the Nursing Educator for matching with agency/vendor and to [...] hours. If BG remains greater than 240, yefxkr54 units (no more than three times) &??call [...] adjustments needed as he recovers. Will ask JESNEN Callahan to see prior to discharge. PLAN Lantus:50 units daily Lispro 1:8 insulin to carbohydrate ratio Lispro for correction q 4 hours using CF20 sliding scale Will continue to follow Katerin Azul APRN [facility] [place] Endocrinology Diabetes Management Pager [phone] minutes of this 25 minute visit [...] of infiltration/extravasation Discussed plan of care with PULLBOAT ENGINEER and RN. Elevate exrtemity and apply intermittent Warm compresses. Name of MD contacted Dr. Shaw Brown 07/13/2017 @ 0645 Name of RN contacted Ale Rangel RN Name of Pharmacist if consulted NA Name of Plastics MD ( if consulted) NA (Mandatory photo for infiltrations/ extravasations scoring a stage 2 or greater, but recommended forstage 1)( include measuring tape and identifier in the photo) INDUSTRIAL HEALTH AND SAFETY PROFESSOR CARING FOR THIS PATIENT WILL CONTINUE TO [...] measuring tape and identifier in the photo) INDUSTRIAL HEALTH AND SAFETY PROFESSOR CARING FOR THIS PATIENT WILL CONTINUE TO [...] regard to both infiltrates addressed by this typewriter tester.All of MrMadiha Hoang's responses were entirely appropriate. Images of infiltrates attached here. L Martha Teague, JACK SPINNER - 07/13/2017 8:01 AM EST Cardiac Surgery Progress Note: ID: [id number] 72 year old male POD#6 s/p CABGx3 [...] discharge. ?? I have met with the patient/pharmaceutical service representative to discuss discharge planning needs. I have provided the [facility] [place], Office of Care Management letter from the Supervisor Pigment Making pertaining to rehab referrals. I have also provided a letter describing our affiliations within the [facility] and educated them about their right to choose where referrals are placed. ?? I reviewed the different levels of rehab including SNF, swing, acute and LTAC with the patient/pharmaceutical service representative. ?? The patient/pharmaceutical service representative has been provided a list of facilities within their preferred geographic area. ?? I have requested that the patient/pharmaceutical service representative provide at least three choices for referral. ?? The patient/pharmaceutical service representative have requested referrals to: ?? [facility]. [facility] ?? 2. [facility] ?? 3. More to be entered ?? Expected date of discharge: 07/14 Note routed to Nursing Educator who will communicate referrals to facilities [...] Will continue to follow Katerin Azul APRN [facility] [place] Endocrinology Diabetes Management Pager [phone] 20 minutes of this 35 minute visit was spent with the patient in counseling on diabetes and treatment plan, reviewing all glucose and insulin data as well as relevant laboratory results with the patient, and coordination of care on the inpatient unit including nursing and primary team. Makayla Stevenson APRN - 07/12/2017 9:52 AM EST Cardiac Surgery Progress Note: ID: [id number] 72 year old male POD#5 s/p CABGx3 [...] 07/11/2017 7:18 PM EST Patient arrived from [facility]. VSS. MSI dressing pulled off with fresh [...] hours. If BG remains greater than 240, rzpzop50 units (no more than three times) & [...] AM EST Cardiac Surgery Progress Note: ID: [id number] 72 year old male POD#4 s/p CABGx3 [...] hours. If BG remains greater than 240, vkjbeb44 units (no more than three times) & [...] AM EST Cardiac Surgery Progress Note: ID: [id number] 72 year old male POD#3 s/p CABGx3 [...] Gas) No results found for: PHART, PO2ART, BTI2GSE Assessment/Plan: 72 year old male POD#3 s/p [...] Mami Thao - 07/09/2017 6:29 PM EST [employer]aker Encounter Note Patient Name: Gregory Hoang : [id number] MR#: [id number] Admit Date: 07/05/2017 4:20 PM Hospital Day 4 days Narrative: Patient was sitting in chair, hugging heart pillow, opened his eyes, nodding to come into room Assessment: Patient was sleepy. Intervention and Outcome: Introduced athletic events scorer services and patient reached his hand out in appreciation. Follow-up: [employer] remains available for support. Time in Direct [...] 10:45 AM EST Report given to staffing specialist to cover care Maddison Cee PA - 07/09/2017 9:00 AM EST Cardiac Surgery Progress Note: ID: [id number] 72 year old male POD#2 s/p CABGx3 [...] completed shifts: In: 7977.4 [I.V.:7477.4; Other:500] Out: 1945 [Urine:3000; Other:615] I- 4 L O- 2.7 [...] Surgeon on rounds. Signed: STEPHANIE Iqbal [facility] Section of Cardiac Surgery Date: [...] when IABP d/c'ed. Gretchen Carolina, PT Pager [phone] Maddison Cee PA - 07/08/2017 11:27 AM EST Cardiac Surgery Progress Note: ID: [id number] 72 year old male POD#1 s/p CABGx3 [...] Surgeon on rounds. Signed: STEPHANIE Iqbal [facility] Section of Cardiac Surgery Date: [...] in place in R femoral. No hematoma. TAPER AND FLOATER- Intact Psych- Anxious Skin- Dry, no peripheral [...] intact. IABP in place in R femoral. TAPER AND FLOATER- Intact Psych- Anxious Skin- Dry, no peripheral [...] pending CABG - hold metformin - f/u [facility] ?? #Home Meds - continue [...] note for details. DAPHNE SHAHID MD Pager [phone] Jet Mckenna MD - 07/05/2017 6:48 PM EST Preliminary Cardiac Catheterization Procedure Note: Procedure(s) performed: Left heart cath, IABP insertion Access: Right AIRCRAFT MECHANIC STRUCTURES-->8fr IABP A time-out was conducted prior to [...] gtt maintained. Pt transferred to research laboratory specialist. documented in this encounter H&P Notes Daphne Shahid MD - 07/05/2017 6:08 PM EST CARDIOLOGY HISTORY & PHYSICAL EXAM Date of Admission: 07/05/2017 ( Hospital Day 0 days ) Responsible Attending: Daphne Shahid MD PCP: Lovely Vicente MD PCP#: [phone] Patient Active Problem List Diagnosis Code ??? [...] load with heparin drip and transferred to [facility]. While there, continued sob, question of chest pain. Stat TTE showing WMA diffusely and EF around 20%. No significant valvular disease. Taken to the research laboratory specialist urgently for ongoing STEMI. [facility] [...] - s/p lasix in the research laboratory specialist, redose to aim net neg 1L by [...] Medicine, PGY-2 Cardiology S1, Team Pager # [phone] CARDIOLOGY ATTENDING NOTE Patient: Gregory Hoang Date [...] amenable for PCI. DAPHNE SHAHID MD Pager [phone] documented in this encounter Miscellaneous Notes Consult Note - Daphne Shahid MD - 07/14/2017 11:46 AM EST Heart Failure Service Inpatient Consult Note Gregory Hoang Date of : 1945 Age: 72 y.o. Today's date: 07/14/17 PCP: Lovely Vicente MD HOSPITALIST MEDICAL DIRECTOR: None Place of Service: C451-A Reason for [...] SETUP performed by Manny Mcknight MD at [facility] OR ??? PRO CABG, ARTERIAL, SINGLE N/A 07/07/2017 @CABG, USING ARTERIAL GRAFT;SINGLE ARTERIAL GRAFT (WRVU 33.75) performed by Yuan Webber MD at [facility] OR ??? PRO CABG, ARTERY-VEIN, TWO N/A 07/07/2017 @CABG, TWO VENOUS GRAFTS & ARTERIAL GRAFT (WRVU 7.93) performed by Yuan Webber MD at [facility] OR ??? PRO COLONOSCOPY, REMV LESN, SNARE 01/16/2014 COLONOSCOPY, POLYPECTOMY, REMOVAL LESION BY SNARE performed by Nohemi Jaimes MD at [facility] ENDOSCOPY ??? PRO ENDOSCOPY W/VIDEO-ASST VEIN HARVEST, CABG Right 07/07/2017 ENDOSCOPIC HARVEST VEIN(S) FOR CABG (WRVU 0.31) performed by Yuan Webber MD at [facility] OR ??? PRO THYROIDECTOMY 03/28/2013 THYROIDECTOMY, TOTAL OR COMPLETE performed by Manny Mcknight MD at [facility] MAIN OR Outpt Meds: Current Outpatient [...] following studies: EKG 07/14/17: NSR 75 bpm, INTERNATIONAL MARKETING INTERN anterior infarct, LAD CXR 07/11/17: FINDINGS: Sternotomy wires. The patient has been extubated, left chest tube removed, and Eglon-Suzi catheter removed since the 07/07/2017 study. Atelectasis [...] was discussed with Zehra. Jaden Kelley MD Funding Specialist Pager [phone] CARDIOLOGY ATTENDING NOTE Patient: Gregory Hoang Date [...] heart failure clinic. DAPHNE SHAHID MD Pager [phone] Plan of Care - Alden Chavarria, VICE PRESIDENT INVESTOR RELATIONS - 07/14/2017 11:35 AM EST Problem: Patient [...] Disposition: home with assist Alden Jorge Genikevin, VICE PRESIDENT INVESTOR RELATIONS Pager: [phone] Inpatient Physical Therapy Problem: Acute Rehab Services [...] sit/sit to supine -- Bed Mobility Goal, Me[place] Level supervision required -- Bed Mobility Goal, [...] - 3 days -- Gait Training Goal, [place] Level supervision required -- Gait Training Goal, [...] days -- Transfer Training Goal, Activity Type big-hz-obzgp/cwvgo-xz-iso;pty-na-jrslm/ynbzp-te-ory;toilet -- Transfer Train Goal, [place] Level supervision required -- Transfer Training Goal, [...] keeping present for 2 days per family. Water Filterer Helper noted of frustrations, house keeping sent to room. Patient offered showered twice, refused. at bedside, frustrated that shower not complete, informed that patient had refused several times. requesting to see UNIFORM ATTENDANT, paged sent to Martha, will come to bedside (middle of consult). not willing to wait, Martha notified that family had gone home. Encouraged to come for morning rounds a t 8am. Diabetes team at bedside - insulin adjustments made. Call cabello in reach. Continue to monitor. PLAN MOVING FORWARD: Ambulate, dressing changes BID, Please change drsg at 4am per Martha UNIFORM ATTENDANT request. INDIVIDUALIZED FALL PREVENTION INTERVENTIONS: Patient-specific fall [...] levels on the lower side, 60ml of Nuevo juice given after a FS of 80. [...] 07/13/17 0502 Interdisciplinary Rounds/Family Conf Participants case maker;dietitian/nutrition services;nursing;occupational therapy;patient;pharmacy;physical therapy;physician Plan of Care - [...] Anticipated Discharge Disposition: home with assist Pager: [phone] CLARISSA SEGAL, PT 07/12/2017 Physical Therapy Rehabilitation [...] to sit/sit to supine Bed Mobility Goal, Me[place] Level supervision required Bed Mobility Goal, Additional Goal adheres to psternal precautions for transfer Goal: Gait Training Goal Stand Alone Therapy Goal Outcome: Ongoing (Interventions Implemented as Appropriate) 07/12/17 1225 Gait Training Goal Gait Training Goal, Date Established 07/12/17 Gait Training Goal, Time to Achieve 2 - 3 days Gait Training Goal, Me[place] Level supervision required Gait Training Goal, Assist [...] 3 days Transfer Training Goal, Activity Type pak-du-ciwau/niwye-to-hmy;kra-fw-vidcy/ehcbi-jv-jsj;toilet Transfer Train Goal, [place] Level supervision required Transfer Training Goal, Additional Goal adheres to sternal precautions during transfer Consult Note - Octavia Vaughn RN - 07/12/2017 10:50 AM EST [facility] [place] CARDIAC REHABILITATION Gregory Hoang was seen today [...] IV site, amio to other piv and HYDRO PNEUMATIC TESTER at bedside to help assess, IV removed. [...] Health/Prescription Coverage: Primary Insurance: MEDICARE Secondary Insurance: [id number] [place] Prescription Coverage: yes Preferred Pharmacy: [facility] [place] Other: none Primary Care Provider: Lovely Vicente MD [phone] Patient/Caregiver Goals of Treatment:live and get my breath back Potential Needs for Transition of Care: Rehab/SNF: [facility] Home Health: NA DME: TBD Dialysis: na Community Resources: available Transportation: yes Other: none Anticipated Barriers to Discharge/Special Considerations: none Plan: Likely SNF Rehab before home A member of the Care Management team will continue to monitor progress, follow for continuity of care and assist with transition of care planning. ERLIN Weiss Pager: [phone] Consult Note - Katerin Azul RN - [...] management and to provide a review of termite control technician diabetes care. Diabetes History: Gregory Hoang has [...] to d/c gtt and start CF. senior living diabetes care: Medications - Outpatient treatment regimen recommendations pending based on the hospital course. Monitoring - continue BG tid ac & hs Diet - low fat/low carb diet Exercise - weight-bearing exercise 30 min/day, as tolerated Thank you for allowing us to provide care for your patient W/E coverage, Dr. Jeane Tatum, pager [phone] Katerin Azul APRN Endocrinology Diabetes Management Pager [phone] Plan of Care - Walt Stephanie Wyatt [...] Webber MD - 07/07/2017 6:27 PM EST [facility] [place] Operative Note Patient Name: Gregory Hoang : [id number] MR#: [id number] Case Date: 07/07/2017 Surgeon: Surgeon(s) and Role: * Yuan Webber MD - Primary * Michael Drake PA - Physician Rn On Site * Linda Flores PA - Physician Rn On Site Preoperative diagnosis: 3VD Postoperative diagnosis: CAD, severe [...] was prepared and the end of the THOPMSON was anastomosed to the side of the [...] Operative Note Patient Name: Gregory Hoang : [id number] MR#: [id number] Case Date: 07/07/2017 Surgeon: Surgeon(s) and Role: * Yuan Webber MD - Primary * Michael Drake PA - Physician Rn On Site * Linda Flores PA - Physician Rn On Site Preoperative diagnosis: 3VD Postoperative diagnosis: CAD, severe [...] this patient.) Plan of Care - Stephanie oGdoy RN - 07/07/2017 6:33 AM EST Problem: [...] code status: Full Code Katty Hahn, MS3 [facility] Cardiology S1 (Pager [phone]) Plan of Care - Emelia Ibarra RN [...] [facility] ENDOSCOPY ??? PRO THYROIDECTOMY 03/28/2013 THYROIDECTOMY, TOTAL OR COMPLETE performed by Manny Mcknight MD at [facility] MAIN OR Social History: Social History [...] with other involved physicians Yuan Webber MD [phone] Med Student Progress Note - Katty Hahn [...] - s/p lasix in the research laboratory specialist, was net -1.5L - s/p plavix load, [...] FULL - Dispo: CVCC Katty Hahn, M3 [facility] Cardiology S1 (Pager [phone]) Plan of Care - Stephanie Godoy RN - 07/06/2017 5:00 AM EST Problem: Patient Care Overview Goal: Plan of Care Review 07/06/17 3036 Coping/Psychosocial Plan Of Care Reviewed With patient;family [...] without difficulty. Lasix given in research laboratory specialist, 1.4 L out at this time. Pt [...] Nobles MD [facility] [address] [place], [place] [address] (Wo rk) 06/10/2022 Office Visit Dermatology Laura Scherer MD [facility] [address] [place], [place] [address] (Wo rk) Scheduled Orders Name [...] procedure are i n the results section. ACCOUNTS RECEIVABLE ADMINISTRATOR SCAN 07/15/2017 12:00 Res ults for this [...] Routine 07/08/2017 4:00 Results f or this ([facility] [place]/[facility]) AM EST procedure are i n the [...] Routine 07/07/2017 5:15 Results f or this ([facility] [place]/[facility]) AM EST procedure are i n the [...] Routine 07/06/2017 7:40 Results f or this ([facility] [place]/[facility]) PM EST procedure are i n the [...] Timed 07/06/2017 2:10 Results f or this ([facility] [place] [place] PM EST procedure are i n the [...] section. TYPE AND SCREEN Routine 07/06/2017 12:00 ([facility] [place]/SHANDA) PM EST APTT STAT 07/06/2017 11:24 Results [...] Routine 07/06/2017 8:10 Results f or this ([facility] [place]) AM EST procedure are i n the [...] Routine 07/06/2017 2:20 Results f or this ([facility] [place]) AM EST procedure are i n the [...] Routine 07/05/2017 8:20 Results f or this ([facility] [place]) PM EST procedure are i n the [...] Timed 07/05/2017 4:55 Results f or this ([facility] [place]) PM EST procedure are i n the [...] 2017 EXAMINATION: XR CHEST PA AND LATERAL ([employer]) CLINICAL HISTORY: CABG x 3 TECHNIQUE: PA [...] [place] at 08/19/2017 10:30 AM Martha Teague JACK SPINNER IMG DX ORDERABLES SCAN DOC: ACCOUNTS RECEIVABLE ADMINISTRATOR (07/15/2017 12:00 AM EST) Narrative 07/15/2017 12:00 [...] POC Glucose 186 65 - 199 [facility] mg/dL [facility] Comment: Supplemental ranges: <140 mg/dL before meals <180 mg/dL all other times of the day Specimen Anatomical Collection Method Collection Time Receive d Time (Source) Location / / Volume Laterality Blood specimen 07/14/2017 11:56 7 (specimen) AM EST 11:56 AM EST Yuan Webber MD POINT OF CARE TEST ORDERABLE S Performing Organization Address City/State/[place] [address] POCT Glucose (07/14/2017 7:52 AM EST) athologist Signature POC Glucose 126 65 - 199 [facility] mg/dL [facility] Comment: Supplemental ranges: [...] City/[facility]/[place] [address] (ABNORMAL) Prothrombin Time (07/14/2017 4:46 AM EST) athologist Signature PT 26.4 (H) 11.8 - 14.0 [facility] LABORATORY INR 2.4 (H) 0.9 - 1.1 [facility] [...] Wilson APRN HEMATOLOGY ORDERABLES Performing Organization Address City/[facility]/[place] [address] Potassium (07/14/2017 4:46 AM EST) athologist Signature Potassium 4.3 3.5 - 5.0 [facility] mmol/L [facility] Comment: Please note: [...] Organization Address City/State/ZIP Code Phon e Number [address] POCT Glucose (07/14/2017 4:34 AM EST) athologist Signature POC Glucose 115 65 - 199 [place] mg/dL [facility] Comment: Supplemental ranges: [...] City/[facility]/ZIP Code Phon e Number [address] POCT Glucose (07/13/2017 11:33 PM EST) athologist Signature POC Glucose 132 65 - 199 [place] mg/dL [facility] Comment: Supplemental ranges: [...] City/[facility]/ZIP Code [place] [address] POCT Glucose (07/13/2017 9:25 PM EST) athologist Signature POC Glucose 121 65 - 199 [place] mg/dL [facility] Comment: Supplemental ranges: <140 mg/dL before meals <180 mg/dL all other times of the day Specimen Anatomical Collection Method Collection Time Receive d Time (Source) Location / / Volume Laterality Blood specimen 07/13/2017 9:25 PM 017 9:25 (specimen) EST PM EST Yuan Webber MD POINT OF CARE TEST ORDERABLE S Performing Organization Address City/State/[place] [address] POCT Glucose (07/13/2017 4:55 PM EST) athologist Signature POC Glucose 79 65 - 199 [place] mg/dL [facility] Comment: Supplemental ranges: <140 mg/dL before meals <180 mg/dL all other times of the day Specimen Anatomical Collection Method Collection Time Receive d Time (Source) Location / / Volume Laterality Blood specimen 07/13/2017 4:55 PM 017 4:55 (specimen) EST PM EST Yuan Webber MD POINT OF CARE TEST ORDERABLE S Performing Organization Address City/State/ZIP Code Phon e Number [address] POCT Glucose (07/13/2017 11:16 AM EST) athologist Signature POC Glucose 163 65 - 199 [facility] [place] mg/dL [facility] Comment: Supplemental ranges: <140 mg/dL before meals <180 mg/dL all other times of the day Specimen Anatomical Collection Method Collection Time Receive d Time (Source) Location / / Volume Laterality Blood specimen 07/13/2017 11:16 7 (specimen) AM EST 11:16 AM EST Yuan Webber MD POINT OF CARE TEST ORDERABLE S Performing Organization Address City/State/ZIP Code Phon e Number [address] POCT Glucose (07/13/2017 8:07 AM EST) athologist Signature POC Glucose 96 65 - 199 [place] mg/dL [facility] Comment: Supplemental ranges: <140 mg/dL before meals <180 mg/dL all other times of the day Specimen Anatomical Collection Method Collection Time Receive d Time (Source) Location / / Volume Laterality Blood specimen 07/13/2017 8:07 AM 017 8:07 (specimen) EST AM EST Yuan Webber MD POINT OF CARE TEST ORDERABLE S Performing Organization Address City/State/[place] [address] (ABNORMAL) Prothrombin Time (07/13/2017 4:26 AM EST) P athologist Signature PT 20.8 (H) 11.8 - 14.0 [facility] LABORATORY INR 1.8 (H) 0.9 - 1.1 [facility] [...] Organization Address City/State/[place] [address] (ABNORMAL) Basic Metabolic Panel (non-fasting) (07/13/2017 4:26 AM EST) athologist Signature Glucose Lvl 95 65 - 199 [facility] mg/dL [facility] Comment: Diabetes: >=200 [...] [facility]ICAL [facility]ENTER LABORATORY Estimated GFR 60 >=60 [facility] Comment: The reported eGFR should be multiplied b y 1.2 for patients. The MDRD is not an appropriate measure o f renal function for patients with body mass extremes or in patients with acute kidney failure. http://Hunie/DHnkdep http://[place]unie/DHMCnkf Specimen Anatomical Collection Method Collection Time Receive d Time (Source) Location / / Volume Laterality Blood specimen 07/13/2017 4:26 AM 017 4:46 (specimen) EST AM EST Resulting Agency Comment Spec In Lab Makayla Wilson APRN CHEMISTRY ORDERABLES Performing Organization Address City/[facility]/ZIP Code Phon e Number [address] POCT Glucose (07/13/2017 3:52 AM EST) athologist Signature POC Glucose 93 65 - 199 [facility] Comment: Supplemental ranges: <140 mg/dL before meals <180 mg/dL all other times of the day Specimen Anatomical Collection Method Collection Time Receive d Time (Source) Location / / Volume Laterality Blood specimen 07/13/2017 3:52 AM 017 3:52 (specimen) EST AM EST Yuan Webber MD POINT OF CARE TEST ORDERABLE S Performing Organization Address City/State/ZIP Code Phon e Number [address] POCT Glucose (07/13/2017 12:21 AM EST) athologist Signature POC Glucose 80 65 - 199 [facility] mg/dL [facility] Comment: Supplemental ranges: <140 mg/dL before meals <180 mg/dL all other times of the day Specimen Anatomical Collection Method Collection Time Receive d Time (Source) Location / / Volume Laterality Blood specimen 07/13/2017 12:21 7 (specimen) AM EST 12:21 AM EST Yuan Webber MD POINT OF CARE TEST ORDERABLE S Performing Organization Address City/State/ZIP Code Phon e Number [address] POCT Glucose (07/12/2017 8:22 PM EST) athologist Signature POC Glucose 119 65 - 199 [place] mg/dL [facility] Comment: Supplemental ranges: [...] City/[facility]/ZIP Code Phon e Number [address] POCT Glucose (07/12/2017 4:02 PM EST) athologist Signature POC Glucose 114 65 - 199 [place] mg/dL [facility] Comment: Supplemental ranges: [...] City/[facility]/[place] [address] POCT Glucose (07/12/2017 11:28 AM EST) athologist Signature POC Glucose 164 65 - 199 [place] mg/dL [facility] Comment: Supplemental ranges: <140 mg/dL before meals <180 mg/dL all other times of the day Specimen Anatomical Collection Method Collection Time Receive d Time (Source) Location / / Volume Laterality Blood specimen 07/12/2017 11:28 7 (specimen) AM EST 11:28 AM EST Yuan Webber MD POINT OF CARE TEST ORDERABLE S Performing Organization Address City/State/ZIP Code Phon e Number [address] POCT Glucose (07/12/2017 7:34 AM EST) athologist Signature POC Glucose 109 65 - 199 [facility] mg/dL [facility] Comment: Supplemental ranges: <140 mg/dL before meals <180 mg/dL all other times of the day Specimen Anatomical Collection Method Collection Time Receive d Time (Source) Location / / Volume Laterality Blood specimen 07/12/2017 7:34 AM 017 7:34 (specimen) EST AM EST Yuan Webber MD POINT OF CARE TEST ORDERABLE S Performing Organization Address City/State/[place] [address] (ABNORMAL) Basic Metabolic Panel (non-fasting) (07/12/2017 4:11 AM EST) athologist Signature Glucose Lvl 92 65 - 199 [facility] mg/dL [facility] Comment: Diabetes: >=200 [...] mmol/L [facility] CO2 Not Perf 22 - 31 mmol/L [facility] Comment: Add-on request. Sample too old to perform test. Anion Gap Not Calculated 5 - 15 mmol/L [facility] Calcium 8.1 (L) 8.5 - 10.5 mg/dL [facility] Estimated GFR 58 (L) >=60 [facility] Comment: The reported eGFR should be multiplied b y 1.2 for patients. The MDRD is not an appropriate measure o f renal function for patients with body mass extremes or in patients with acute kidney failure. http://Hunie/DHnkdep http://Hunie/DHMCnkf Specimen Anatomical Collection Method Collection Time Receive d Time (Source) Location / / Volume Laterality Blood specimen 07/12/2017 4:11 AM 017 8:57 (specimen) EST AM EST Resulting Agency Comment Spec [facility] CHEMISTRY ORDERABLES Performing Organization Address [facility] Phon e Number [address] (ABNORMAL) Prothrombin Time (07/12/2017 4:11 AM EST) P athologist Signature PT 15.4 (H) 11.8 - 14.0 [facility] LABORATORY INR 1.2 (H) 0.9 - 1.1 [facility] [...] [place] STACIE HEMATOLOGY ORDERABLES Performing Organization Address [facility] Phon e Number [address] Potassium (07/12/2017 4:11 AM EST) P athologist Signature Potassium 3.8 3.5 - 5.0 [facility] mmol/L [facility] Comment: Please note: [...] Wilson APRN CHEMISTRY ORDERABLES Performing Organization Address City/[facility]/ZIP [facility] Phon e Number [address] POCT Glucose (07/12/2017 4:10 AM EST) athologist Signature POC Glucose 90 65 - 199 [facility] Comment: Supplemental ranges: <140 mg/dL before meals <180 mg/dL all other times of the day Specimen Anatomical Collection Method Collection Time Receive d Time (Source) Location / / Volume Laterality Blood specimen 07/12/2017 4:10 AM 017 4:10 (specimen) EST AM EST Yuan Webber MD POINT OF CARE TEST ORDERABLE S Performing Organization Address City/[facility] Code Phon e Number [address] POCT Glucose (07/11/2017 11:57 PM EST) athologist Signature POC Glucose 98 65 - 199 [facility] mg/dL [facility] Comment: Supplemental ranges: [...] City/[facility]/ZIP Code Phon e Number [address] POCT Glucose (07/11/2017 8:32 PM EST) P athologist Signature POC Glucose 146 65 - 199 [place] mg/dL [facility] Comment: Supplemental ranges: <140 mg/dL before meals <180 mg/dL all other times of the day Specimen Anatomical Collection Method Collection Time Receive d Time (Source) Location / / Volume Laterality Blood specimen 07/11/2017 8:32 PM 017 8:32 (specimen) EST PM EST Yuan Webber MD POINT OF CARE TEST ORDERABLE S Performing Organization Address City/State/[place] [address] XR Chest PA & [...] e xtubated, left chest tube removed, and Eglon-Suzi catheter removed since the study. Atelectasis at [...] e xtubated, left chest tube removed, and Eglon-Suzi catheter removed since the study. Atelectasis at [...] (H) 65 - 199 [place] mg/dL [facility] Comment: Supplemental ranges: [...] City/[facility]/ZIP Code Phon e Number [address] POCT Glucose (07/11/2017 11:55 AM EST) athologist Signature POC Glucose 176 65 - 199 [place] mg/dL [facility] Comment: Supplemental ranges: <140 mg/dL before meals <180 mg/dL all other times of the day Specimen Anatomical Collection Method Collection Time Receive d Time (Source) Location / / Volume Laterality Blood specimen 07/11/2017 11:55 7 (specimen) AM EST 11:55 AM EST Yuan Webber MD POINT OF CARE TEST ORDERABLE S Performing Organization Address City/State/[place] [address] POCT Glucose (07/11/2017 7:53 AM EST) athologist Signature POC Glucose 189 65 - 199 [place] mg/dL [facility] Comment: Supplemental ranges: <140 mg/dL before meals <180 mg/dL all other times of the day Specimen Anatomical Collection Method Collection Time Receive d Time (Source) Location / / Volume Laterality Blood specimen 07/11/2017 7:53 AM 017 7:53 (specimen) EST AM EST Yuan Webber MD POINT OF CARE TEST ORDERABLE S Performing Organization Address City/State/[place] [address] POCT Glucose (07/11/2017 4:22 AM EST) athologist Signature POC Glucose 151 65 - 199 [place] mg/dL [facility] Comment: Supplemental ranges: [...] City/[facility]/[place] [address] Potassium (07/11/2017 2:20 AM EST) athologist Signature Potassium 4.5 3.5 - 5.0 [facility] mmol/L [facility] Comment: Please note: [...] Webber MD CHEMISTRY ORDERABLES Performing Organization Address City/[facility]/ZIP Code Phon e Number [address] POCT Glucose (07/11/2017 12:17 AM EST) athologist Signature POC Glucose 162 65 - 199 [place] mg/dL [facility] Comment: Supplemental ranges: <140 mg/dL before meals <180 mg/dL all other times of the day Specimen Anatomical Collection Method Collection Time Receive d Time (Source) Location / / Volume Laterality Blood specimen 07/11/2017 12:17 7 (specimen) AM EST 12:17 AM EST Yuan Webber MD POINT OF CARE TEST ORDERABLE S Performing Organization Address City/State/[place] [address] POCT Glucose (07/10/2017 8:47 PM EST) athologist Signature POC Glucose 191 65 - 199 [place] mg/dL [facility] Comment: Supplemental ranges: <140 mg/dL before meals <180 mg/dL all other times of the day Specimen Anatomical Collection Method Collection Time Receive d Time (Source) Location / / Volume Laterality Blood specimen 07/10/2017 8:47 PM 017 8:47 (specimen) EST PM EST Yuan Webber MD POINT OF CARE TEST ORDERABLE S Performing Organization Address City/State/[place] [address] POCT Glucose (07/10/2017 4:06 PM EST) athologist Signature POC Glucose 131 65 - 199 [place] mg/dL [facility] Comment: Supplemental ranges: <140 mg/dL before meals <180 mg/dL all other times of the day Specimen Anatomical Collection Method Collection Time Receive d Time (Source) Location / / Volume Laterality Blood specimen 07/10/2017 4:06 PM 017 4:06 (specimen) EST PM EST Yuan Webber MD POINT OF CARE TEST ORDERABLE S Performing Organization Address City/State/ZIP Code Phon e Number [address] POCT Glucose (07/10/2017 3:08 PM EST) athologist Signature POC Glucose 151 65 - 199 [facility] [place] mg/dL [facility] Comment: Supplemental ranges: <140 mg/dL before meals <180 mg/dL all other times of the day Specimen Anatomical Collection Method Collection Time Receive d Time (Source) Location / / Volume Laterality Blood specimen 07/10/2017 3:08 PM 017 3:08 (specimen) EST PM EST Yuan Webber MD POINT OF CARE TEST ORDERABLE S Performing Organization Address City/State/ZIP Code Phon e Number [address] POCT Glucose (07/10/2017 2:25 PM EST) athologist Signature POC Glucose 146 65 - 199 [place] mg/dL [facility] Comment: Supplemental ranges: <140 mg/dL before meals <180 mg/dL all other times of the day Specimen Anatomical Collection Method Collection Time Receive d Time (Source) Location / / Volume Laterality Blood specimen 07/10/2017 2:25 PM 017 2:25 (specimen) EST PM EST Yuan Webber MD POINT OF CARE TEST ORDERABLE S Performing Organization Address City/State/[place] [address] POCT Glucose (07/10/2017 1:23 PM EST) athologist Signature POC Glucose 166 65 - 199 [place] mg/dL [facility] Comment: Supplemental ranges: <140 mg/dL before meals <180 mg/dL all other times of the day Specimen Anatomical Collection Method Collection Time Receive d Time (Source) Location / / Volume Laterality Blood specimen 07/10/2017 1:23 PM 017 1:23 (specimen) EST PM EST Yuan Webber MD POINT OF CARE TEST ORDERABLE S Performing Organization Address City/State/[place] [address] POCT Glucose (07/10/2017 11:52 AM EST) athologist Signature POC Glucose 157 65 - 199 [place] mg/dL [facility] Comment: Supplemental ranges: <140 mg/dL before meals <180 mg/dL all other times of the day Specimen Anatomical Collection Method Collection Time Receive d Time (Source) Location / / Volume Laterality Blood specimen 07/10/2017 11:52 7 (specimen) AM EST 11:52 AM EST Yuan Webber MD POINT OF CARE TEST ORDERABLE S Performing Organization Address City/State/ZIP Code Phon e Number [address] POCT Glucose (07/10/2017 11:01 AM EST) P athologist Signature POC Glucose 158 65 - 199 [place] mg/dL [facility] Comment: Supplemental ranges: [...] City/[facility]/ZIP Code Phon e Number [address] POCT Glucose (07/10/2017 9:54 AM EST) P athologist Signature POC Glucose 160 65 - 199 [place] mg/dL [facility] Comment: Supplemental ranges: <140 mg/dL before meals <180 mg/dL all other times of the day Specimen Anatomical Collection Method Collection Time Receive d Time (Source) Location / / Volume Laterality Blood specimen 07/10/2017 9:54 AM 017 9:54 (specimen) EST AM EST Yuan Webber MD POINT OF CARE TEST ORDERABLE S Performing Organization Address City/State/ZIP Code Phon e Number [address] POCT Glucose (07/10/2017 8:58 AM EST) P athologist Signature POC Glucose 183 65 - 199 [place] mg/dL [facility] Comment: Supplemental ranges: <140 mg/dL before meals <180 mg/dL all other times of the day Specimen Anatomical Collection Method Collection Time Receive d Time (Source) Location / / Volume Laterality Blood specimen 07/10/2017 8:58 AM 017 8:58 (specimen) EST AM EST Yuan Webber MD POINT OF CARE TEST ORDERABLE S Performing Organization Address City/State/ZIP Code Phon e Number [address] POCT Glucose (07/10/2017 8:01 AM EST) athologist Signature POC Glucose 173 65 - 199 [place] mg/dL [facility] Comment: Supplemental ranges: <140 mg/dL before meals <180 mg/dL all other times of the day Specimen Anatomical Collection Method Collection Time Receive d Time (Source) Location / / Volume Laterality Blood specimen 07/10/2017 8:01 AM 017 8:01 (specimen) EST AM EST Yuan Webber MD POINT OF CARE TEST ORDERABLE S Performing Organization Address City/State/ZIP Code Phon e Number [address] POCT Glucose (07/10/2017 7:05 AM EST) athologist Signature POC Glucose 166 65 - 199 [place] mg/dL [facility] LABORATORY Comment: Supplemental ranges: <140 mg/dL before meals <180 mg/dL all other times of the day Specimen Anatomical Collection Method Collection Time Receive d Time (Source) Location / / Volume Laterality Blood specimen 07/10/2017 7:05 AM 017 7:05 (specimen) EST AM EST Yuan Webber MD POINT OF CARE TEST ORDERABLE S Performing Organization Address City/State/ZIP Code Phon e Number [address] POCT Glucose (07/10/2017 6:00 AM EST) athologist Signature POC Glucose 162 65 - 199 [facility] RYAN mg/dL [facility] LABORATORY Comment: Supplemental ranges: <140 mg/dL before meals <180 mg/dL all other times of the day Specimen Anatomical Collection Method Collection Time Receive d Time (Source) Location / / Volume Laterality Blood specimen 07/10/2017 6:00 AM 017 6:00 (specimen) EST AM EST Yuan Webber MD POINT OF CARE TEST ORDERABLE S Performing Organization Address City/State/ZIP Code Phon e Number [place] [phone] [facility] [address]ORY Drive (ABNORMAL) Differential, Automated (07/10/2017 4:28 AM EST) [facility] Method Time Signature Neutrophils % 87.9 % [facility] LABORATORY Neutr Abs (ANC) 10.70 (H) 1.70 - [facility] 6.10 [facility] x10(3)/[facility] L LABORATORY Lymphocytes % 3.9 % [facility] LABORATORY Lymphocytes Abs 0.5 (L) 0.9 - 3.2 [facility] x10(3)/[facility] LABORATORY Monocytes % 7.0 % [facility] LABORATORY Monocyte Abs 0.8 0.3 - 0.9 [facility] x10(3)/[facility] LABORATORY Eosinophils % 0.3 % [facility] LABORATORY Eosinophils Abs 0.0 0.0 - 0.4 [facility] x10(3)/[facility] LABORATORY Basophils % 0.2 % [facility] LABORATORY Basophils Abs 0.0 0.0 - 0.1 [facility] x10(3)/[facility] LABORATORY Immature Gran % 0.70 % [...] Webber MD HEMATOLOGY ORDERABLES Performing Organization Address City/[facility]/ZIP Code Phon e Number [place] [phone]ORY Drive (ABNORMAL) Hemogram (07/10/2017 4:28 AM EST) Analysis Performed At Patho logist Time Signature WBC 12.2 (H) 4.0 - 9.5 [facility] x10(3)/[facility] LABORATORY RBC 3.31 (L) 4.58 - [place] 5.54 [facility] x10(6)/[facility] LABORATORY Hemoglobin 9.8 (L) 13.7 - [facility] 16.5 gm/dL [facility] LABORATORY Hematocrit 30.0 (L) 40.5 - [facility] 48.5 % [facility] LABORATORY MCV 90.6 82.9 - [facility] LABORATORY MCH 29.6 27.5 - [facility] 32.1 pg [facility] LABORATORY MCHC 32.7 32.0 - [facility] 35.7 gm/dL [facility] LABORATORY Platelets 135 (L) 145 - 357 [facility] x10(3)/[facility] LABORATORY RDWSD 50.8 (H) 36.0 - [facility] LABORATORY RDWCV 15.4 (H) 11.4 - [facility] 13.8 % [facility] LABORATORY MPV 10.0 7.6 - 12.9 [facility] LABORATORY nRBC % Auto 0.0 % [facility] LABORATORY nRBC Abs Auto 0.000 0.000 - [facility] 0.000 [facility] x10(3)/[facility] LABORATORY Specimen Anatomical Collection Method Collection Time Receive d Time (Source) Location / / Volume Laterality Blood specimen 07/10/2017 4:28 AM 017 4:36 (specimen) EST AM EST Resulting Agency Comment Spec In Lab Yuan Webber MD HEMATOLOGY ORDERABLES Performing Organization Address City/State/[place] [address] (ABNORMAL) Basic Metabolic Panel (non-fasting) (07/10/2017 4:28 AM EST) P athologist Signature Glucose Lvl 178 65 - 199 [facility] mg/dL [facility] LABORATORY Comment: Diabetes: >=200 [...] estions. Chloride 107 98 - 107 mmol/L [facility] LABORATORY CO2 21 (L) 22 - 31 mmol/L [facility] LABORATORY Anion Gap 15 5 - 15 mmol/L [facility] LABORATORY Calcium 7.4 (L) 8.5 - 10.5 mg/dL [facility] LABORATORY Estimated GFR 60 >=60 [facility] LABORATORY Comment: The reported eGFR should be multiplied b y 1.2 for patients. The MDRD is not an appropriate measure o f renal function for patients with body mass extremes or in patients with acute kidney failure. http://[employer]Aspen Evian/DHnkdep http://Hunie/DHMCnkf Specimen Anatomical Collection Method Collection Time Receive d Time (Source) Location / / Volume Laterality Blood specimen 07/10/2017 4:28 AM 017 4:36 (specimen) EST AM EST Resulting Agency Comment Spec In Lab Yuan Webber MD CHEMISTRY ORDERABLES Performing Organization Address City/State/[place] [address] POCT Glucose (07/10/2017 4:26 AM EST) P athologist Signature POC Glucose 176 65 - 199 [facility] mg/dL [facility] LABORATORY Comment: Supplemental ranges: <140 mg/dL before meals <180 mg/dL all other times of the day Specimen Anatomical Collection Method Collection Time Receive d Time (Source) Location / / Volume Laterality Blood specimen 07/10/2017 4:26 AM 017 4:26 (specimen) EST AM EST Yuan Webber MD POINT OF CARE TEST ORDERABLE S Performing Organization Address City/State/ZIP Code Phon e Number [address] (ABNORMAL) POCT Glucose (07/10/2017 3:06 AM EST) P athologist Signature POC Glucose 204 (H) 65 - 199 [place] R[place] mg/dL [facility] LABORATORY Comment: Supplemental ranges: [...] City/[facility]/[place] [address] (ABNORMAL) POCT Glucose (07/10/2017 2:10 AM EST) P athologist Signature POC Glucose 203 (H) 65 - 199 [place] mg/dL [facility] LABORATORY Comment: Supplemental ranges: <140 mg/dL before meals <180 mg/dL all other times of the day Specimen Anatomical Collection Method Collection Time Receive d Time (Source) Location / / Volume Laterality Blood specimen 07/10/2017 2:10 AM 017 2:10 (specimen) EST AM EST Yuan Webber MD POINT OF CARE TEST ORDERABLE S Performing Organization Address City/State/ZIP Code Phon e Number [address] POCT Glucose (07/10/2017 1:09 AM EST) P athologist Signature POC Glucose 196 65 - 199 [facility] RYAN mg/dL [facility] LABORATORY Comment: Supplemental ranges: <140 mg/dL before meals <180 mg/dL all other times of the day Specimen Anatomical Collection Method Collection Time Receive d Time (Source) Location / / Volume Laterality Blood specimen 07/10/2017 1:09 AM 017 1:09 (specimen) EST AM EST Yuan Webber MD POINT OF CARE TEST ORDERABLE S Performing Organization Address City/State/[place] [address] POCT Glucose (07/10/2017 12:10 AM EST) P athologist Signature POC Glucose 173 65 - 199 [place] RY[place] mg/dL [facility] LABORATORY Comment: Supplemental ranges: <140 mg/dL before meals <180 mg/dL all other times of the day Specimen Anatomical Collection Method Collection Time Receive d Time (Source) Location / / Volume Laterality Blood specimen 07/10/2017 12:10 7 (specimen) AM EST 12:10 AM EST Yuan Webber MD POINT OF CARE TEST ORDERABLE S Performing Organization Address City/State/[place] [address] POCT Glucose (07/09/2017 11:01 PM EST) P athologist Signature POC Glucose 140 65 - 199 [place] mg/dL [facility] LABORATORY Comment: Supplemental ranges: <140 mg/dL before meals <180 mg/dL all other times of the day Specimen Anatomical Collection Method Collection Time Receive d Time (Source) Location / / Volume Laterality Blood specimen 07/09/2017 11:01 7 (specimen) PM EST 11:01 PM EST Yuan Webber MD POINT OF CARE TEST ORDERABLE S Performing Organization Address City/State/[place] [address] POCT Glucose (07/09/2017 10:05 PM EST) P athologist Signature POC Glucose 144 65 - 199 [facility] RYAN mg/dL [facility] LABORATORY Comment: Supplemental ranges: <140 mg/dL before meals <180 mg/dL all other times of the day Specimen Anatomical Collection Method Collection Time Receive d Time (Source) Location / / Volume Laterality Blood specimen 07/09/2017 10:05 7 (specimen) PM EST 10:05 PM EST Yuan Webber MD POINT OF CARE TEST ORDERABLE S Performing Organization Address City/State/ZIP Code Phon e Number [address] POCT Glucose (07/09/2017 9:31 PM EST) athologist Signature POC Glucose 121 65 - 199 [place] mg/dL [facility] LABORATORY Comment: Supplemental ranges: [...] City/[facility]/ZIP Code Phon e Number [address] POCT Glucose (07/09/2017 9:03 PM EST) athologist Signature POC Glucose 98 65 - 199 [place] mg/dL [facility] LABORATORY Comment: Supplemental ranges: [...] City/[facility]/[place] [address] POCT Glucose (07/09/2017 8:09 PM EST) athologist Signature POC Glucose 117 65 - 199 [place] mg/dL [facility] LABORATORY Comment: Supplemental ranges: <140 mg/dL before meals <180 mg/dL all other times of the day Specimen Anatomical Collection Method Collection Time Receive d Time (Source) Location / / Volume Laterality Blood specimen 07/09/2017 8:09 PM 017 8:09 (specimen) EST PM EST Yuan Webber MD POINT OF CARE TEST ORDERABLE S Performing Organization Address City/State/ZIP Code Phon e Number [address] POCT Glucose (07/09/2017 5:40 PM EST) athologist Signature POC Glucose 155 65 - 199 [place] mg/dL [facility] LABORATORY Comment: Supplemental ranges: [...] City/[facility]/ZIP Code Phon e Number [address] POCT Glucose (07/09/2017 4:24 PM EST) athologist Signature POC Glucose 164 65 - 199 [facility] RY[place] mg/dL [facility] LABORATORY Comment: Supplemental ranges: <140 mg/dL before meals <180 mg/dL all other times of the day Specimen Anatomical Collection Method Collection Time Receive d Time (Source) Location / / Volume Laterality Blood specimen 07/09/2017 4:24 PM 017 4:24 (specimen) EST PM EST Yuan Webber MD POINT OF CARE TEST ORDERABLE S Performing Organization Address City/State/ZIP Code Phon e Number [address] POCT Glucose (07/09/2017 3:19 PM EST) athologist Signature POC Glucose 166 65 - 199 [facility] [place] mg/dL [facility] LABORATORY Comment: Supplemental ranges: <140 mg/dL before meals <180 mg/dL all other times of the day Specimen Anatomical Collection Method Collection Time Receive d Time (Source) Location / / Volume Laterality Blood specimen 07/09/2017 3:19 PM 017 3:19 (specimen) EST PM EST Yuan Webber MD POINT OF CARE TEST ORDERABLE S Performing Organization Address City/State/[place] [address] POCT Glucose (07/09/2017 2:26 PM EST) athologist Signature POC Glucose 179 65 - 199 [place] mg/dL [facility] LABORATORY Comment: Supplemental ranges: [...] City/[facility]/[place] [address] (ABNORMAL) POCT Glucose (07/09/2017 1:29 PM EST) athologist Signature POC Glucose 210 (H) 65 - 199 [place] mg/dL [facility] LABORATORY Comment: Supplemental ranges: <140 mg/dL before meals <180 mg/dL all other times of the day Specimen Anatomical Collection Method Collection Time Receive d Time (Source) Location / / Volume Laterality Blood specimen 07/09/2017 1:29 PM 017 1:29 (specimen) EST PM EST Yuan Webber MD POINT OF CARE TEST ORDERABLE S Performing Organization Address City/State/[place] [address] POCT Glucose (07/09/2017 12:20 PM EST) athologist Signature POC Glucose 172 65 - 199 [place] mg/dL [facility] LABORATORY Comment: Supplemental ranges: <140 mg/dL before meals <180 mg/dL all other times of the day Specimen Anatomical Collection Method Collection Time Receive d Time (Source) Location / / Volume Laterality Blood specimen 07/09/2017 12:20 7 (specimen) PM EST 12:20 PM EST Yuan Webber MD POINT OF CARE TEST ORDERABLE S Performing Organization Address City/State/[place] [address] [facility] [address] POCT Glucose (07/09/2017 11:24 AM EST) P athologist Signature POC Glucose 156 65 - 199 [place] mg/dL [facility] LABORATORY Comment: Supplemental ranges: <140 mg/dL before meals <180 mg/dL all other times of the day Specimen Anatomical Collection Method Collection Time Receive d Time (Source) Location / / Volume Laterality Blood specimen 07/09/2017 11:24 7 (specimen) AM EST 11:24 AM EST Yuan Webber MD POINT OF CARE TEST ORDERABLE S Performing Organization Address City/State/[place] [address] [facility] [address] POCT Glucose (07/09/2017 11:11 AM EST) athologist Signature POC Glucose 172 65 - 199 [place] mg/dL [facility] LABORATORY Comment: Supplemental ranges: <140 mg/dL before meals <180 mg/dL all other times of the day Specimen Anatomical Collection Method Collection Time Receive d Time (Source) Location / / Volume Laterality Blood specimen 07/09/2017 11:11 7 (specimen) AM EST 11:11 AM EST Yuan Webber MD POINT OF CARE TEST ORDERABLE S Performing Organization Address City/State/[place] [address] [facility] [address] POCT Glucose (07/09/2017 10:08 AM EST) athologist Signature POC Glucose 176 65 - 199 [place] mg/dL [facility] LABORATORY Comment: Supplemental ranges: <140 mg/dL before meals <180 mg/dL all other times of the day Specimen Anatomical Collection Method Collection Time Receive d Time (Source) Location / / Volume Laterality Blood specimen 07/09/2017 10:08 7 (specimen) AM EST 10:08 AM EST Yuan Webber MD POINT OF CARE TEST ORDERABLE S Performing Organization Address City/State/[place] [address] POCT Glucose (07/09/2017 8:02 AM EST) P athologist Signature POC Glucose 178 65 - 199 [facility] mg/dL [facility] LABORATORY Comment: Supplemental ranges: <140 mg/dL before meals <180 mg/dL all other times of the day Specimen Anatomical Collection Method Collection Time Receive d Time (Source) Location / / Volume Laterality Blood specimen 07/09/2017 8:02 AM 017 8:02 (specimen) EST AM EST Yuan Webber MD POINT OF CARE TEST ORDERABLE S Performing Organization Address City/State/[place] [address] (ABNORMAL) BLOOD GAS 2 ARTERIAL (07/09/2017 5:37 AM EST) Analysis Performed At Patho logist Time Signature pH Art 7.36 7.35 - [facility] 7.45 [facility] LABORATORY pCO2 Art 38 35 - 45 [facility] LABORATORY pO2 Art 79 (L) 85 - 104 [facility] LABORATORY HCO3 Art 20.9 20.0 - [facility] 26.0 [facility] mmol/L [facility] LABORATORY BE Art -4.6 (L) -3.0 - 3.0 [facility] mmol/L [facility] LABORATORY Hgb Blood Gas 10.5 (L) 13.7 - [facility] 16.5 gm/dL [facility] LABORATORY O2HB Art 93.8 (L) 94.0 - [facility] 97.0 % [facility] LABORATORY COHB Art 0.3 % [facility] LABORATORY Comment: Nonsmokers: 0.5-1.5% COHB Smokers: Variable, but usually less than 10% Toxic: 20-30% COHB Lethal: Greater than 60% COHB METHB Art 0.6 <=1.5 % [facility] LABORATORY Na Whole Blood 141 135 - 145 mmol/L [facility] LABORATORY K Whole Blood 4.5 3.5 - 5.0 mmol/L [facility] LABORATORY Comment: Please note: Patients with WBC >100,000 may have falsely elevated Potassium levels. Contact the Clinical Chemistry L aboratory if there are any questions. ICa Whole Blood 1.01 (L) 1.15 - 1.33 mmol/L [facility] LABORATORY Comment: Note: ??Total bilirubin higher than 20 m g/dL may lead to falsely low ionized calcium. CL Whole Blood 113 (H) 98 - 107 mmol/L [facility] LABORATORY Gluc Whole Bld 175 65 - 199 mg/dL [facility] LABORATORY Comment: Diabetes: >=200 mg/dL plus symp toms. Lactate WB 1.0 0.5 - 2.2 mmol/L [facility] LABORATORY FIO2 Art 40 % [facility] LABORATORY PF Ratio Art 198 [facility] LABORATORY Specimen Anatomical Collection Method Collection Time Receive d Time (Source) Location / / Volume Laterality Blood specimen 07/09/2017 5:37 AM 017 5:37 (specimen) EST AM EST Yuan Webber MD CHEMISTRY ORDERABLES Performing Organization Address City/[facility]/[place] [address] POCT Glucose (07/09/2017 3:27 AM EST) P athologist Signature POC Glucose 192 65 - 199 [facility] mg/dL [facility] LABORATORY Comment: Supplemental ranges: [...] City/[facility]/[place] [address] (ABNORMAL) Basic Metabolic Panel (non-fasting) (07/09/2017 2:30 AM EST) P athologist Signature Glucose Lvl 179 65 - 199 [facility] mg/dL [facility] LABORATORY Comment: Diabetes: >=200 [...] Chloride 111 (H) 98 - 107 mmol/L [facility] [...] or in patients with acute kidney failure. http://Hunie/DHnkdep http://Hunie/DHMCnkf Specimen Anatomical Collection Method Collection Time Receive d Time (Source) Location / / Volume Laterality Blood specimen Venous Draw / 07/09/2017 2:30 AM 2016 2:42 (specimen) Unknown EST AM EST Resulting Agency Comment Spec In Lab Yuan eWbber MD CHEMISTRY ORDERABLES Performing Organization Address City/State/[place] [address] (ABNORMAL) Potassium (07/09/2017 2:30 AM EST) P athologist Signature Potassium 5.1 (H) 3.5 - 5.0 [facility] mmol/L [facility] LABORATORY Comment: Please note: [...] Organization Address City/State/[place] [address] (ABNORMAL) Hemogram (07/09/2017 2:30 AM EST) Analysis Performed At Patho logist Time Signature WBC 12.5 (H) 4.0 - 9.5 [facility] x10(3)/[facility] LABORATORY RBC 3.38 (L) 4.58 - [facility] 5.54 [facility] x10(6)/[facility] LABORATORY Hemoglobin 10.1 (L) 13.7 - [facility] 16.5 gm/dL [facility] LABORATORY Hematocrit 30.3 (L) 40.5 - [facility] 48.5 % [facility] LABORATORY MCV 89.6 82.9 - [facility] [facility] LABORATORY MCH 29.9 27.5 - [place] RY[place] 32.1 pg [facility] LABORATORY MCHC 33.3 32.0 - [facility] 35.7 gm/dL [facility] LABORATORY Platelets 127 (L) 145 - 357 [facility] x10(3)/[facility] LABORATORY RDWSD 49.3 (H) 36.0 - [place] RYAN [address] [facility] LABORATORY RDWCV 15.2 (H) 11.4 - [facility] RYAN 13.8 % [facility] LABORATORY MPV 9.9 7.6 - 12.9 [facility] LABORATORY nRBC % Auto 0.0 % [facility] LABORATORY nRBC Abs Auto 0.000 0.000 - [place] 0.000 [facility] x10(3)/[facility] LABORATORY Specimen Anatomical Collection Method Collection Time Receive d Time (Source) Location / / Volume Laterality Blood specimen 07/09/2017 2:30 AM 017 2:41 (specimen) EST AM EST Resulting Agency Comment Spec In Lab Yuan Webber MD HEMATOLOGY ORDERABLES Performing Organization Address City/[facility]/ZIP Code Phon e Number [address] POCT Glucose (07/09/2017 2:10 AM EST) P athologist Signature POC Glucose 169 65 - 199 [place] ZHAORYAN mg/dL [facility] LABORATORY Comment: Supplemental ranges: [...] City/[facility]/[place] [address] POCT Glucose (07/09/2017 1:01 AM EST) P athologist Signature POC Glucose 173 65 - 199 [place] ZHAORYAN mg/dL [facility] LABORATORY Comment: Supplemental ranges: [...] City/[facility]/ZIP Code Phon e Number [address] Blood culture (07/09/2017 12:40 AM EST) [facility] Method Time Signature Blood Culture No growth BARBARA DAVIS at 5 days. [facility] LABORATORY Specimen Anatomical Collection Method Collection Time Receive d Time (Source) Location / / Volume Laterality Blood specimen STRUCTURE OF RIGHT 07/09/2017 12:40 3:58 (specimen) UPPER LIMB / AM EST AM EST Unknown Resulting Agency Comment Spec In Lab Yuan Webber MD MICROBIOLOGY - BLOOD ORDERAB LES Performing Organization Address City/State/[place] [address] Blood culture (07/09/2017 12:30 AM EST) [facility] Method Time Signature Blood Culture No growth BARBARA DAVIS at 5 days. [facility] LABORATORY Specimen Anatomical Collection Method Collection Time Receive d Time (Source) Location / / Volume Laterality Blood specimen STRUCTURE OF LEFT 07/09/2017 12:30 1211/2016 3:59 (specimen) UPPER LIMB / AM EST AM EST Unknown Resulting Agency Comment Spec In Lab Yuan Webber MD MICROBIOLOGY - BLOOD ORDERAB LES Performing Organization Address City/[facility]/[place] [address] (ABNORMAL) Urinalysis Microscopic Exam (07/09/2017 12:05 AM EST) Analysis Performed At Patho logist Time Signature RBC UA 32 (H) 0 - 3 /HPF [facility] LABORATORY WBC UA 5 (H) 0 - 3 /HPF [facility] LABORATORY Squam Epith UA <1 <=4 /HPF [facility] LABORATORY Hyaline Cast 17 (H) 0 - 2 /LPF [facility] LABORATORY Gran Cast UA 1 (H) <=0 /LPF [facility] LABORATORY Uric Ac Bianca Rare (A) None /HPF [facility] LABORATORY Specimen (Source) Anatomical Collection Method Collection Time Re ceived Time Location / / Volume Laterality Urine specimen 07/09/2017 12:05 07/09/ 7 obtained via AM EST 12:39 AM EST indwelling urinary catheter (specimen) Resulting Agency Comment Spec In Lab Yuan Webber MD URINE ORDERABLES Performing Organization Address City/State/[place] [address] (ABNORMAL) Urinalysis with reflex Culture (07/09/2017 12:05 AM EST) [facility] Method Time Signature Glucose UA Negative Negative [place] DAV[place] mg/dL [facility] LABORATORY Protein UA 30 (A) Negative [facility] Bilirubin UA Negative Negative [facility]/dL [facility] Comment: Clinical correlation required [...] LABORATORY Blood UA Moderate (A) Negative mg/dL [facility] Ketones UA Negative Negative mg/dL [facility]OR[facility]ORY Nitrite UA Negative Negative [facility] Leukocytes UA Negative Negative [facility] LABORATORY Appearance UA Hazy (A) Clear [facility] LABORATORY Spec [place] UA 1.025 1.002 - 1.030 [facility] LABORAT[facility] Color UA Yellow Yellow [facility] LABORATORY Culture Reflexed No [facility] LABORATORY Specimen (Source) Anatomical Collection Method Collection Time Re ceived Time Location / / Volume Laterality Urine specimen 07/09/2017 12:05 7 obtained via AM EST 12:39 AM EST indwelling urinary catheter (specimen) Resulting Agency Comment Spec In Lab Yuan Webber MD URINE ORDERABLES Performing Organization Address City/[facility]/[place] [address] POCT Glucose (07/08/2017 11:01 PM EST) P athologist Signature POC Glucose 191 65 - 199 [facility] mg/dL [facility]OR[facility]ORY Comment: Supplemental ranges: <140 mg/dL before meals <180 mg/dL all other times of the day Specimen Anatomical Collection Method Collection Time Receive d Time (Source) Location / / Volume Laterality Blood specimen 07/08/2017 11:01 7 (specimen) PM EST 11:01 PM EST Yuan Webber MD POINT OF CARE TEST ORDERABLE S Performing Organization Address City/State/[place] [address] POCT Glucose (07/08/2017 10:04 PM EST) athologist Signature POC Glucose 198 65 - 199 [facility] RYAN mg/dL [facility] LABORATORY Comment: Supplemental ranges: <140 mg/dL before meals <180 mg/dL all other times of the day Specimen Anatomical Collection Method Collection Time Receive d Time (Source) Location / / Volume Laterality Blood specimen 07/08/2017 10:04 7 (specimen) PM EST 10:04 PM EST Yuan Webber MD POINT OF CARE TEST ORDERABLE S Performing Organization Address City/State/ZIP Code Phon e Number [address] Prepare Albumin 5% in 250 mL (07/08/2017 8:49 PM EST) athologist Signature Dispensed? Yes [facility] LABORATORY Specimen Anatomical Collection Method Collection Time Receive d Time (Source) Location / / Volume Laterality Blood specimen No Charge / 07/08/2017 8:49 PM 017 8:51 (specimen) Unknown EST PM EST Resulting Agency Comment Spec In Lab [facility] ORDERABLES Performing Organization Address City/State/ZIP Code Phon e Number [address] POCT Glucose (07/08/2017 8:28 PM EST) athologist Signature POC Glucose 195 65 - 199 [place]BARA RYAN mg/dL [facility] LABORATORY Comment: Supplemental ranges: <140 mg/dL before meals <180 mg/dL all other times of the day Specimen Anatomical Collection Method Collection Time Receive d Time (Source) Location / / Volume Laterality Blood specimen 07/08/2017 8:28 PM 017 8:28 (specimen) EST PM EST Yuan Webber MD POINT OF CARE TEST ORDERABLE S Performing Organization Address City/State/[place] [address] (ABNORMAL) POCT Glucose (07/08/2017 7:13 PM EST) P athologist Signature POC Glucose 220 (H) 65 - 199 [facility] mg/dL [facility] LABOR[facility]ORY Comment: Supplemental ranges: <140 mg/dL before meals <180 mg/dL all other times of the day Specimen Anatomical Collection Method Collection Time Receive d Time (Source) Location / / Volume Laterality Blood specimen 07/08/2017 7:13 PM 017 7:13 (specimen) EST PM EST Yuan Webber MD POINT OF CARE TEST ORDERABLE S Performing Organization Address City/State/ZIP Code Phon e Number [address] POCT Glucose (07/08/2017 5:04 PM EST) athologist Signature POC Glucose 147 65 - 199 [facility] mg/dL [facility]ORY Comment: Supplemental ranges: <140 mg/dL before meals <180 mg/dL all other times of the day Specimen Anatomical Collection Method Collection Time Receive d Time (Source) Location / / Volume Laterality Blood specimen 07/08/2017 5:04 PM 017 5:04 (specimen) EST PM EST Yuan Webber MD POINT OF CARE TEST ORDERABLE S Performing Organization Address City/State/[place] [address] (ABNORMAL) BLOOD GAS 2 ARTERIAL (07/08/2017 4:13 PM EST) Analysis Performed At Patho logist Time Signature pH Art 7.38 7.35 - [facility] 7.45 [facility] LABORATORY pCO2 Art 36 35 - 45 [facility] LABORATORY pO2 Art 91 85 - 104 [facility] LABORATORY HCO3 Art 20.9 20.0 - [facility] 26.0 [facility] mmol/L [facility] LABORATORY BE Art -4.2 (L) -3.0 - 3.0 [facility] mmol/L [facility] LABORATORY Hgb Blood Gas 11.7 (L) 13.7 - [facility] 16.5 gm/dL [facility] LABORATORY O2HB Art 95.1 94.0 - [facility] 97.0 % [facility] LABORATORY COHB Art 0.6 % [facility] LABORATORY Comment: Nonsmokers: 0.5-1.5% COHB Smokers: Variable, but usually less than 10% Toxic: 20-30% COHB Lethal: Greater than 60% COHB METHB Art 0.6 <=1.5 % [facility] LABORATORY Na Whole Blood 139 135 - 145 mmol/L [facility] LABORATORY K Whole Blood 4.2 3.5 - 5.0 mmol/L [facility] LABORATORY Comment: Please note: Patients with WBC >100,000 may have falsely elevated Potassium levels. Contact the Clinical Chemistry L aboratory if there are any questions. ICa Whole Blood 1.05 (L) 1.15 - 1.33 mmol/L [facility] LABORATORY Comment: Note: ??Total bilirubin higher than 20 m g/dL may lead to falsely low ionized calcium. CL Whole Blood 110 (H) 98 - 107 mmol/L [facility] LABORATORY Gluc Whole Bld 155 65 - 199 mg/dL [facility] LABORATORY Comment: Diabetes: >=200 mg/dL plus symp toms. Lactate WB 1.4 0.5 - 2.2 mmol/L [facility] LABOR[facility] FIO2 Art 40 % [facility] LABORATORY PF Ratio Art 228 [facility] LABORATORY Specimen Anatomical Collection Method Collection Time Receive d Time (Source) Location / / Volume Laterality Blood specimen 07/08/2017 4:13 PM 017 4:13 (specimen) EST PM EST Yuan Webber MD CHEMISTRY ORDERABLES Performing Organization Address City/State/[place] [address] POCT Glucose (07/08/2017 4:01 PM EST) P athologist Signature POC Glucose 148 65 - 199 [facility] mg/dL [facility]OR[facility] Comment: Supplemental ranges: <140 mg/dL before meals <180 mg/dL all other times of the day Specimen Anatomical Collection Method Collection Time Receive d Time (Source) Location / / Volume Laterality Blood specimen 07/08/2017 4:01 PM 017 4:01 (specimen) EST PM EST Yuan Webber MD POINT OF CARE TEST ORDERABLE S Performing Organization Address City/State/ZIP Code Phon e Number [address] POCT Glucose (07/08/2017 3:21 PM EST) athologist Signature POC Glucose 118 65 - 199 [facility]BARA ZHAORYAN mg/dL [facility] LABORATORY Comment: Supplemental ranges: <140 mg/dL before meals <180 mg/dL all other times of the day Specimen Anatomical Collection Method Collection Time Receive d Time (Source) Location / / Volume Laterality Blood specimen 07/08/2017 3:21 PM 017 3:21 (specimen) EST PM EST Yuan Webber MD POINT OF CARE TEST ORDERABLE S Performing Organization Address City/State/[place] [address] POCT Glucose (07/08/2017 2:01 PM EST) athologist Signature POC Glucose 129 65 - 199 [place]BARA RYAN mg/dL [facility] LABOR[facility]ORY Comment: Supplemental ranges: <140 mg/dL before meals <180 mg/dL all other times of the day Specimen Anatomical Collection Method Collection Time Receive d Time (Source) Location / / Volume Laterality Blood specimen 07/08/2017 2:01 PM 017 2:01 (specimen) EST PM EST Yuan Webber MD POINT OF CARE TEST ORDERABLE S Performing Organization Address City/State/[place] [address] POCT Glucose (07/08/2017 11:53 AM EST) athologist Signature POC Glucose 156 65 - 199 [place]BARA RYAN mg/dL [facility] LABORATORY Comment: Supplemental ranges: <140 mg/dL before meals <180 mg/dL all other times of the day Specimen Anatomical Collection Method Collection Time Receive d Time (Source) Location / / Volume Laterality Blood specimen 07/08/2017 11:53 7 (specimen) AM EST 11:53 AM EST Yuan Webber MD POINT OF CARE TEST ORDERABLE S Performing Organization Address City/State/ZIP Code Phon e Number [address] POCT Glucose (07/08/2017 11:04 AM EST) athologist Signature POC Glucose 181 65 - 199 [facility] mg/dL [facility] LABOR[facility]ORY Comment: Supplemental ranges: [...] City/[facility]/[place] [address] (ABNORMAL) POCT Glucose (07/08/2017 9:24 AM EST) athologist Signature POC Glucose 203 (H) 65 - 199 [facility] mg/dL [facility] Comment: Supplemental ranges: <140 mg/dL before meals <180 mg/dL all other times of the day Specimen Anatomical Collection Method Collection Time Receive d Time (Source) Location / / Volume Laterality Blood specimen 07/08/2017 9:24 AM 017 9:24 (specimen) EST AM EST Yuan Webber MD POINT OF CARE TEST ORDERABLE S Performing Organization Address City/State/[place] [address] APTT (07/08/2017 8:40 AM EST) athologist Signature PTT 33 25 - 35 sec [facility] LABORATORY Comment: The recommended therapeutic range for fu ll dose, unfractionated heparin at [facility] [place] [place] is 80 ? 114 seconds. The [...] Webber MD HEMATOLOGY ORDERABLES Performing Organization Address City/[facility]/[place] [address] (ABNORMAL) Prothrombin Time (07/08/2017 [...] Webber MD HEMATOLOGY ORDERABLES Performing Organization Address City/[facility]/[place] [address] (ABNORMAL) POCT Glucose (07/08/2017 7:38 AM EST) P athologist Signature POC Glucose 232 (H) 65 - 199 [facility] mg/dL [facility] LAB[facility]ORY Comment: Supplemental ranges: [...] City/[facility]/[place] [address] (ABNORMAL) POCT Glucose (07/08/2017 7:07 AM EST) athologist Signature POC Glucose 234 (H) 65 - 199 [facility] mg/dL [facility] Comment: Supplemental ranges: <140 mg/dL before meals <180 mg/dL all other times of the day Specimen Anatomical Collection Method Collection Time Receive d Time (Source) Location / / Volume Laterality Blood specimen 07/08/2017 7:07 AM 017 7:07 (specimen) EST AM EST Yuan Webber MD POINT OF CARE TEST ORDERABLE S Performing Organization Address City/State/[place] [address] (ABNORMAL) POCT Glucose (07/08/2017 6:04 AM EST) athologist Signature POC Glucose 225 (H) 65 - 199 [facility] mg/dL [facility] LAB[facility]ORY Comment: Supplemental ranges: <140 mg/dL before meals <180 mg/dL all other times of the day Specimen Anatomical Collection Method Collection Time Receive d Time (Source) Location / / Volume Laterality Blood specimen 07/08/2017 6:04 AM 017 6:04 (specimen) EST AM EST Yuan Webber MD POINT OF CARE TEST ORDERABLE S Performing Organization Address City/State/[place] [address] (ABNORMAL) POCT Glucose (07/08/2017 5:31 AM EST) athologist Signature POC Glucose 216 (H) 65 - 199 [facility] mg/dL [facility] Comment: Supplemental ranges: <140 mg/dL before meals <180 mg/dL all other times of the day Specimen Anatomical Collection Method Collection Time Receive d Time (Source) Location / / Volume Laterality Blood specimen 07/08/2017 5:31 AM 017 5:31 (specimen) EST AM EST Yuan Webber MD POINT OF CARE TEST ORDERABLE S Performing Organization Address City/State/[place] [address] (ABNORMAL) POCT Glucose (07/08/2017 4:52 AM EST) P athologist Signature POC Glucose 257 (H) 65 - 199 [facility] mg/dL [facility]OR[facility]ORY Comment: Supplemental ranges: <140 mg/dL before meals <180 mg/dL all other times of the day Specimen Anatomical Collection Method Collection Time Receive d Time (Source) Location / / Volume Laterality Blood specimen 07/08/2017 4:52 AM 017 4:52 (specimen) EST AM EST Daphne Shahid MD POINT OF CARE TEST ORDERABLE S Performing Organization Address City/State/[place] [address] (ABNORMAL) BLOOD GAS 2 ARTERIAL (07/08/2017 4:04 AM EST) Analysis Performed At Patho logist Time Signature pH Art 7.30 (L) 7.35 - [facility] 7.45 [facility] LABORATORY pCO2 Art 41 35 - 45 [facility] LABORATORY pO2 Art 83 (L) 85 - 104 [facility] LABORATORY HCO3 Art 19.6 (L) 20.0 - [facility] 26.0 [facility] mmol/[facility] LABORATORY BE Art -6.8 (L) -3.0 - 3.0 [facility] mmol/L [facility] LABORATORY Hgb Blood Gas 12.2 (L) 13.7 - [facility] 16.5 gm/dL [facility] LABORATORY O2HB Art 93.5 (L) 94.0 - [facility] 97.0 % [facility] LABORATORY COHB Art 0.4 % [facility] LABORATORY Comment: Nonsmokers: 0.5-1.5% COHB Smokers: Variable, but usually less than 10% Toxic: 20-30% COHB Lethal: Greater than 60% COHB METHB Art 0.8 <=1.5 % [facility] LABORATORY Na Whole Blood 138 135 - 145 mmol/L [facility] LABORATORY K Whole Blood 4.4 3.5 - 5.0 mmol/L [facility] LABORATORY Comment: Please note: Patients with WBC >100,000 may have falsely elevated Potassium levels. Contact the Clinical Chemistry L aboratory if there are any questions. ICa Whole Blood 1.05 (L) 1.15 - 1.33 mmol/L [facility] LABORATORY Comment: Note: ??Total bilirubin higher than 20 m g/dL may lead to falsely low ionized calcium. CL Whole Blood 107 98 - 107 mmol/L [facility] LABORATORY Gluc Whole Bld 274 (H) 65 - 199 mg/dL [facility] LABORATORY Comment: Diabetes: >=200 mg/dL plus symp toms. Lactate WB 4.4 (Critical) 0.5 - 2.2 mmol/L [facility] LABORATORY Comment: Noted by instrumentation and control technician. FIO2 Art 40 % [facility] LABORATORY PF Ratio Art 208 [facility] LABORATORY Specimen Anatomical Collection Method Collection Time Receive d Time (Source) Location / / Volume Laterality Blood specimen 07/08/2017 4:04 AM 017 4:04 (specimen) EST AM EST Daphne Shahid MD CHEMISTRY ORDERABLES Performing Organization Address City/[facility]/ZIP Code Phon e Number [address] Scan, Peripheral Blood (07/08/2017 4:00 AM EST) P athologist Signature Plat Estimate Normal [facility] LABORATORY RBC Morphology Normal [facility] LABORATORY Specimen Anatomical Collection Method Collection Time Receive d Time (Source) Location / / Volume Laterality Blood specimen 07/08/2017 4:00 AM 017 4:09 (specimen) EST AM EST Resulting Agency Comment Spec In Lab Yuan Webber MD HEMATOLOGY ORDERABLES Performing Organization Address City/State/[place] [address] (ABNORMAL) Differential, Automated (07/08/2017 4:00 AM EST) Patholo gist Method Time Signature Neutrophils % 85.4 % [facility] LABORATORY Neutr Abs (ANC) 16.07 (H) 1.70 - [facility] 6.10 [facility] x10(3)/[facility] L LABORATORY Lymphocytes % 3.5 % [facility] LABORATORY Lymphocytes Abs 0.6 (L) 0.9 - 3.2 [facility] x10(3)/[facility] LABORATORY Monocytes % 10.4 % [facility] LABORATORY Monocyte Abs 2.0 (H) 0.3 - 0.9 [facility] x10(3)/[facility] LABORATORY Eosinophils % 0.0 % [facility] LABORATORY Eosinophils Abs 0.0 0.0 - 0.4 [facility] x10(3)/[facility] LABORATORY Basophils % 0.1 % [facility] LABORATORY Basophils Abs 0.0 0.0 - 0.1 [facility] x10(3)/[facility] LABORATORY Immature Gran % 0.60 % [...] Abs 0.12 (H) 0.00 - 0.04 x10(3)/[facility] LABORATORY Specimen Anatomical Collection Method Collection Time Receive d Time (Source) Location / / Volume Laterality Blood specimen 07/08/2017 4:00 AM 017 4:09 (specimen) EST AM EST Resulting Agency Comment Spec In Lab Yuan Webber MD HEMATOLOGY ORDERABLES Performing Organization Address City/State/[place] [address] (ABNORMAL) Hemogram (07/08/2017 4:00 AM EST) Analysis Performed At Patho logist Time Signature WBC 18.8 (H) 4.0 - 9.5 [facility] x10(3)/[facility] LABORATORY RBC 4.00 (L) 4.58 - [facility] 5.54 [facility] x10(6)/[facility] LABORATORY Hemoglobin 11.9 (L) 13.7 - [facility] 16.5 gm/dL [facility] LABORATORY Hematocrit 35.9 (L) 40.5 - [facility]IS 48.5 % [facility] LABORATORY MCV 89.8 82.9 - [facility] [address] [facility] LABORATORY MCH 29.8 27.5 - BARBARA OLIVASCK 32.1 pg [facility] LABORATORY MCHC 33.1 32.0 - [place] DAVIS 35.7 gm/dL [facility] LABORATORY Platelets 232 145 - 357 [facility] x10(3)/[facility] LABORATORY RDWSD 47.6 (H) 36.0 - [place]BAR[place] DAVIS [address] [facility] LABORATORY RDWCV 14.5 (H) 11.4 - [facility] RYAN 13.8 % [facility] LABORATORY MPV 9.5 7.6 - 12.9 [facility] LABORATORY nRBC % Auto 0.0 % [facility] LABORATORY nRBC Abs Auto 0.000 0.000 - [place]BARA ZHAORYAN 0.000 [facility] x10(3)/[facility] LABORATORY Specimen Anatomical Collection Method Collection Time Receive d Time (Source) Location / / Volume Laterality Blood specimen 07/08/2017 4:00 AM 017 4:09 (specimen) EST AM EST Resulting Agency Comment Spec In Lab Yuan Webber MD HEMATOLOGY ORDERABLES Performing Organization Address City/State/ZIP Code Phon e Number [place] [id number] (ABNORMAL) Electrolytes panel (07/08/2017 4:00 AM EST) P athologist Signature Sodium 139 135 - 145 [facility] mmol/L [facility] LABORATORY Potassium 4.7 3.5 - 5.0 [facility] mmol/L [facility] LABORATORY Comment: result rechecked-JLK Please [...] CO2 21 (L) 22 - 31 mmol/L [facility] Anion Gap 14 5 - 15 mmol/L [facility] Specimen Anatomical Collection Method Collection Time Receive d Time (Source) Location / / Volume Laterality Blood specimen 07/08/2017 4:00 AM 017 4:10 (specimen) EST AM EST Resulting Agency Comment Spec In Lab Yuan Webber MD CHEMISTRY ORDERABLES Performing Organization Address City/State/[place] [address] (ABNORMAL) Cardiac Enzymes (LEB/CGP) (07/08/2017 4:00 AM EST) P athologist Signature Troponin-T 1.88 (H) 0.00 - [facility] 0.00 ng/mL [facility] LABORATORY Comment: The 99th [...] additional sample may be indicated. Reference: Third [place] Definition of Myocardial Infarction. Journal of the [place] [employer] 2012;60:1581-98 CK, Total 413 (H) 0 - 200 unit/L [facility] LABORATORY Comment: result rechecked-JLK Specimen Anatomical Collection Method Collection Time Receive d Time (Source) Location / / Volume Laterality Blood specimen 07/08/2017 4:00 AM 017 4:09 (specimen) EST AM EST Resulting Agency Comment Spec In Lab Yuan Webber MD CHEMISTRY ORDERABLES Performing Organization Address City/State/ZIP Code Phon e Number [address] (ABNORMAL) Glucose, fasting (07/08/2017 4:00 AM EST) P athologist Signature Glucose 287 (H) 65 - 99 [facility] Fasting mg/dL [facility] LABORATORY Comment: ?Fasting* Glucose [...] of Diabetes Mellitus, Position Statement from the [place] [employer]. ??Diabete s Care, Volume 33, Supplement 1, Jul 2009 Specimen Anatomical Collection Method Collection Time Receive d Time (Source) Location / / Volume Laterality Blood specimen 07/08/2017 4:00 AM 017 4:09 (specimen) EST AM EST Resulting Agency Comment Spec In Lab Yuan Webber MD CHEMISTRY ORDERABLES Performing Organization Address City/[facility]/[place] [address] (ABNORMAL) Creatinine (07/08/2017 4:00 AM EST) Analysis Performed At Patho logist Time Signature Creatinine 1.55 (H) 0.80 - [facility] 1.50 mg/dL [facility] LABORATORY Estimated GFR 44 (L) >=60 [facility] LABORATORY Comment: The reported eGFR should be multiplied b y 1.2 for patients. The MDRD is not an appropriate measure o f renal function for patients with body mass extremes or in patients with acute kidney failure. http://Hunie/DHnkdep http://[employer].Aspen Evian/DHMCnkf Specimen Anatomical Collection Method Collection Time Receive d Time (Source) Location / / Volume Laterality Blood specimen 07/08/2017 4:00 AM 017 4:09 (specimen) EST AM EST Resulting Agency Comment Spec In Lab Yuan Webber MD CHEMISTRY ORDERABLES Performing Organization Address City/[facility]/ZIP Code Phon e Number [address] BUN (07/08/2017 4:00 AM EST) P athologist Signature BUN 16 10 - 20 [facility] mg/dL [facility] LABORATORY Specimen Anatomical Collection Method Collection Time Receive d Time (Source) Location / / Volume Laterality Blood specimen 07/08/2017 4:00 AM 017 4:09 (specimen) EST AM EST Resulting Agency Comment Spec In Lab Yuan Webber MD CHEMISTRY ORDERABLES Performing Organization Address City/[facility]/ZIP Code Phon e Number [place], [place] [address] (ABNORMAL) POCT Glucose (07/08/2017 3:00 AM EST) P athologist Signature POC Glucose 273 (H) 65 - 199 [facility] mg/dL [facility] Comment: Supplemental ranges: [...] City/[facility]/ZIP Code Phon e Number [address] (ABNORMAL) POCT Glucose (07/08/2017 1:57 AM EST) P athologist Signature POC Glucose 288 (H) 65 - 199 [facility] mg/dL [facility] Comment: Supplemental ranges: [...] City/[facility]/[place] [address] (ABNORMAL) POCT Glucose (07/08/2017 1:01 AM EST) athologist Signature POC Glucose 315 (H) 65 - 199 [facility] mg/dL [facility] Comment: Supplemental ranges: [...] City/[facility]/[place] [address] (ABNORMAL) BLOOD GAS 2 ARTERIAL (07/08/2017 12:09 AM EST) athologist Signature pH Art 7.26 7.35 - [facility] (Critical) 7.45 [facility] Comment: Noted by instrumentation and control technician. pCO2 Art 41 35 - 45 mmHg [facility] pO2 Art 96 85 - 104 mmHg [facility] HCO3 Art 17.7 (L) 20.0 - 26.0 mmol/L [facility] BE Art -9.4 (L) -3.0 - 3.0 mmol/L [facility] Hgb Blood Gas 12.4 (L) 13.7 - 16.5 gm/dL [facility] O2HB Art 94.7 94.0 - 97.0 % [facility] COHB Art 0.2 % [facility]OR[facility] Comment: Nonsmokers: 0.5-1.5% COHB Smokers: Variable, but usually less than 10% Toxic: 20-30% COHB Lethal: Greater than 60% COHB METHB Art 0.6 <=1.5 % [facility]ORATORY Na Whole Blood 141 135 - 145 mmol/L [facility] K Whole Blood 3.5 3.5 - 5.0 mmol/L [facility] Comment: Please note: Patients with WBC >100,000 may have falsely elevated Potassium levels. Contact the Clinical Chemistry L aboratory if there are any questions. ICa Whole Blood 1.03 (L) 1.15 - 1.33 mmol/L [facility]OR[facility]ORY Comment: Note: ??Total bilirubin higher than 20 m g/dL may lead to falsely low ionized calcium. CL Whole Blood 109 (H) 98 - 107 mmol/L [facility] Gluc Whole Bld 315 (H) 65 - 199 mg/dL [facility] Comment: Diabetes: >=200 mg/dL plus symp toms. Lactate WB 7.6 (Critical) 0.5 - 2.2 mmol/L [facility] Comment: Noted by instrumentation and control technician. FIO2 Art 40 % [facility]ORATORY PF Ratio Art 240 [facility] Specimen Anatomical Collection Method Collection Time Receive d Time (Source) Location / / Volume Laterality Blood specimen Arterial Draw / 07/08/2017 12:09 2016 5:31 (specimen) Unknown AM EST AM EST Resulting Agency Comment Spec In Lab Samy Maldonado MD CHEMISTRY ORDERABLES Performing Organization Address City/State/[place] [address] (ABNORMAL) POCT Glucose (07/07/2017 10:56 PM EST) P athologist Signature POC Glucose 292 (H) 65 - 199 [facility] mg/dL [facility] Comment: Supplemental ranges: <140 mg/dL before meals <180 mg/dL all other times of the day Specimen Anatomical Collection Method Collection Time Receive d Time (Source) Location / / Volume Laterality Blood specimen 07/07/2017 10:56 7 (specimen) PM EST 10:56 PM EST Daphne Shahid MD POINT OF CARE TEST ORDERABLE S Performing Organization Address City/State/[place] [address] (ABNORMAL) BLOOD GAS 2 ARTERIAL (07/07/2017 10:04 PM EST) athologist Signature pH Art 7.22 7.35 - [facility] (Critical) 7.45 [facility] Comment: Noted by instrumentation and control technician. pCO2 Art 42 35 - 45 mmHg [facility] pO2 Art 94 85 - 104 mmHg [facility] HCO3 Art 16.9 (L) 20.0 - 26.0 mmol/L [facility] BE Art -10.7 (L) -3.0 - 3.0 mmol/L [facility] Hgb Blood Gas 13.0 (L) 13.7 - 16.5 gm/dL [facility] O2HB Art 93.8 (L) 94.0 - 97.0 % [facility] COHB Art 0.7 % [facility] Comment: Nonsmokers: 0.5-1.5% COHB Smokers: Variable, but usually less than 10% Toxic: 20-30% COHB Lethal: Greater than 60% COHB METHB Art 0.7 <=1.5 % [facility]OR[facility]ORY Na Whole Blood 140 135 - 145 mmol/L [facility] K Whole Blood 3.3 (L) 3.5 - 5.0 mmol/L [facility] Comment: Please note: Patients with WBC >100,000 may have falsely elevated Potassium levels. Contact the Clinical Chemistry L aboratory if there are any questions. ICa Whole Blood 1.07 (L) 1.15 - 1.33 mmol/L [facility]ORY Comment: Note: ??Total bilirubin higher than 20 m g/dL may lead to falsely low ionized calcium. CL Whole Blood 107 98 - 107 mmol/L [facility] Gluc Whole Bld 304 (H) 65 - 199 mg/dL [facility] Comment: Diabetes: >=200 mg/dL plus symp toms. Lactate WB 8.2 (Critical) 0.5 - 2.2 mmol/L [facility] Comment: Noted by instrumentation and control technician. FIO2 Art 40 % [facility]OR[facility]ORY PF Ratio Art 235 [facility] Specimen Anatomical Collection Method Collection Time Receive d Time (Source) Location / / Volume Laterality Blood specimen 07/07/2017 10:04 7 (specimen) PM EST 10:04 PM EST Daphne Shahid MD CHEMISTRY ORDERABLES Performing Organization Address [facility]/ZIP [facility] Phon e Number [address] (ABNORMAL) Hemoglobin (07/07/2017 10:00 PM EST) P athologist Signature Hemoglobin 12.8 (L) 13.7 - [facility] 16.5 gm/dL [facility] Specimen Anatomical Collection Method Collection Time Receive d Time (Source) Location / / Volume Laterality Blood specimen 07/07/2017 10:00 7 (specimen) PM EST 10:13 PM EST Resulting Agency Comment Spec In Lab Yuan Webber MD HEMATOLOGY ORDERABLES Performing Organization Address City/[facility]/[place] [address] (ABNORMAL) Potassium (07/07/2017 10:00 PM EST) P athologist Signature Potassium 3.4 (L) 3.5 - 5.0 [facility] mmol/L [facility] Comment: Please note: [...] Organization Address City/State/[place] [address] (ABNORMAL) POCT Glucose (07/07/2017 8:49 PM EST) P athologist Signature POC Glucose 241 (H) 65 - 199 [facility] mg/dL [facility] Comment: Supplemental ranges: [...] City/[facility]/[place] [address] Prepare Albumin 5% in 250 mL (07/07/2017 8:03 PM EST) athologist Signature Dispensed? Yes [facility] LABORATORY Specimen Anatomical Collection Method Collection Time Receive d Time (Source) Location / / Volume Laterality Blood specimen No Charge / 07/07/2017 8:03 PM 017 8:04 (specimen) Unknown EST PM EST Resulting Agency Comment Spec In Lab Michael BROWN BLOOD BANK ORDERABLES Performing Organization Address City/[facility]/[place] [address] EKG 12 Lead (07/07/2017 7:17 PM EST) Component Value Ref Range Test Analysis Performed Pathologis t Method Time At Signature Ventricular rate 75 BPM MUSE SYSTEM Atrial Rate 75 BPM MUSE SYSTEM P-R Interval 168 ms MUSE SYSTEM QRS Duration 104 ms MUSE SYSTEM Q-T Interval 462 ms MUSE SYSTEM QTC Calculated 515 ms MUSE SYSTEM (Bezet) Calculated P [place] 52 degrees MUSE SYSTEM Calculated R [place] -40 degrees MUSE SYSTEM Calculated T [place] 39 degrees MUSE SYSTEM INTERPRETATION Normal sinus [...] Signature pH Art 7.21 7.35 - [facility] (Critical) 7.45 [facility] Comment: Noted by instrumentation and control technician. pCO2 Art 50 (H) 35 - 45 mmHg [facility] pO2 Art 238 (H) 85 - 104 mmHg [facility] HCO3 Art 19.8 (L) 20.0 - 26.0 mmol/L [facility] BE Art -8.1 (L) -3.0 - 3.0 mmol/L [facility] Hgb Blood Gas 12.8 (L) 13.7 - 16.5 gm/dL [facility] O2HB Art 97.5 (H) 94.0 - 97.0 % [facility] COHB Art 0.5 % [facility] Comment: Nonsmokers: 0.5-1.5% COHB Smokers: Variable, but usually less than 10% Toxic: 20-30% COHB Lethal: Greater than 60% COHB METHB Art 0.7 <=1.5 % [facility]ORATORY Na Whole Blood 140 135 - 145 mmol/L [facility] K Whole Blood 3.0 (Critical) 3.5 - 5.0 mmol/L [facility] Comment: Noted by instrumentation and control technician. Please note: Patients with WBC >100,000 may have falsely elevated Potassium levels. Contact the Clinical Chemistry L aboratory if there are any questions. ICa Whole Blood 1.07 (L) 1.15 - 1.33 mmol/L [facility] Comment: Note: ??Total bilirubin higher than 20 m g/dL may lead to falsely low ionized calcium. CL Whole Blood 107 98 - 107 mmol/L [facility] Gluc Whole Bld 270 (H) 65 - 199 mg/dL [facility] Comment: Diabetes: >=200 mg/dL plus symp toms. Lactate WB 4.9 (Critical) 0.5 - 2.2 mmol/L [facility] Comment: Noted by instrumentation and control technician. FIO2 Art 100 % [facility] PF Ratio Art 238 [facility] Specimen Anatomical Collection Method Collection Time Receive d Time (Source) Location / / Volume Laterality Blood specimen 07/07/2017 6:57 PM 017 6:57 (specimen) EST PM EST Daphne Shahid MD CHEMISTRY ORDERABLES Performing Organization Address City/State/[place] [address] (ABNORMAL) BLOOD GAS 2 ARTERIAL (07/07/2017 5:31 PM EST) athologist Signature pH Art 7.29 7.35 - [facility] (Critical) 7.45 [facility] Comment: Noted by instrumentation and control technician. pCO2 Art 48 (H) 35 - 45 mmHg [facility] pO2 Art 137 (H) 85 - 104 mmHg [facility] HCO3 Art 22.4 20.0 - 26.0 mmol/L [facility] BE Art -4.3 (L) -3.0 - 3.0 mmol/L [facility] Hgb Blood Gas 10.0 (L) 13.7 - 16.5 gm/dL [facility] O2HB Art 97.3 (H) 94.0 - 97.0 % [facility] COHB Art 0.3 % [facility] Comment: Nonsmokers: 0.5-1.5% COHB Smokers: Variable, but usually less than 10% Toxic: 20-30% COHB Lethal: Greater than 60% COHB METHB Art 0.3 <=1.5 % [facility] Na Whole Blood 132 (L) 135 - 145 mmol/L [facility] K Whole Blood 4.0 3.5 - 5.0 mmol/L [facility] Comment: Please note: Patients with WBC >100,000 may have falsely elevated Potassium levels. Contact the Clinical Chemistry L aboratory if there are any questions. ICa Whole Blood 1.14 (L) 1.15 - 1.33 mmol/L [facility] Comment: Note: ??Total bilirubin higher than 20 m g/dL may lead to falsely low ionized calcium. CL Whole Blood 105 98 - 107 mmol/L [facility] Gluc Whole Bld 293 (H) 65 - 199 mg/dL [facility] Comment: Diabetes: >=200 mg/dL plus symp toms. Lactate WB 3.1 (H) 0.5 - 2.2 mmol/L [facility] Specimen Anatomical Collection Method Collection Time Receive d Time (Source) Location / / Volume Laterality Blood specimen 07/07/2017 5:31 PM 017 5:31 (specimen) EST PM EST Daphne Shahid MD CHEMISTRY ORDERABLES Performing Organization Address City/[facility]/ZIP Code Phon e Number [address] Fibrinogen (07/07/2017 5:30 PM EST) P athologist Signature Fibrinogen 224 180 - 510 [facility] mg/dL [facility] Comment: Called by: JEET, [...] Perez MD HEMATOLOGY ORDERABLES Performing Organization Address City/[facility]/ZIP [facility] Phon e Number [address] APTT (07/07/2017 5:30 PM EST) P athologist Signature PTT 30 25 - 35 sec [facility] LABORATORY Comment: The recommended therapeutic range for fu ll dose, unfractionated heparin at [facility] [place] [place] is 80 ? 114 seconds. The [...] Perez MD HEMATOLOGY ORDERABLES Performing Organization Address City/[facility]/[place] [address] (ABNORMAL) Prothrombin Time (07/07/2017 [...] Perez MD HEMATOLOGY ORDERABLES Performing Organization Address City/[facility]/[place] [address] (ABNORMAL) Hemogram (07/07/2017 5:30 PM EST) P athologist Signature WBC 19.6 (H) 4.0 - 9.5 [facility] x10(3)/[facility] LABORATORY RBC 3.08 (L) 4.58 - [facility] 5.54 [facility] x10(6)/[facility] LABORATORY Hemoglobin 9.2 (L) 13.7 - [facility] 16.5 gm/dL [facility] LABORATORY Hematocrit 28.0 (L) 40.5 - [facility] 48.5 % [facility] Comment: This result has been called to MONIAC MORAN by DONALD GROSSMAN on 07 07 2017 at 1759, and has been read back. MCV 90.9 82.9 - 93.1 fL [facility] LABORATORY MCH 29.9 27.5 - 32.1 pg [facility] LABORATORY MCHC 32.9 32.0 - 35.7 gm/dL [facility] Platelets 155 145 - 357 x10(3)/[facility] LABORATORY RDWSD 46.5 (H) 36.0 - 45.0 [facility] LABORATORY RDWCV 14.1 (H) 11.4 - 13.8 % [facility] LABORATORY MPV 9.5 7.6 - 12.9 [facility] LABORATORY nRBC % Auto 0.0 % [facility] LABORATORY nRBC Abs Auto 0.000 0.000 - 0.000 x10(3)/[facility] LABORATORY Specimen Anatomical Collection Method Collection Time Receive d Time (Source) Location / / Volume Laterality Blood specimen 07/07/2017 5:30 PM 017 5:34 (specimen) EST PM EST Resulting Agency Comment Spec In Lab Yifan Perez MD HEMATOLOGY ORDERABLES Performing Organization Address City/State/[place] [address] Prepare Platelets, Apheresis (07/07/2017 5:00 PM EST) P athologist Signature Dispensed? Yes [facility] LABORATORY Specimen Anatomical Collection Method Collection Time Receive d Time (Source) Location / / Volume Laterality Blood specimen 07/07/2017 5:00 PM 017 4:58 (specimen) EST PM EST Daphne Shahid MD BLOOD BANK ORDERABLES Performing Organization Address City/State/[place] [address] Platelet count (07/07/2017 4:55 PM EST) P athologist Signature Platelets 177 145 - 357 [facility] x10(3)/[facility] LABORATORY Plat Immature 1.5 0.0 - 7.4 [facility] % % [facility] LABORATORY Comment: Limitation of the Immature Platelet Frac tion (IPF)-May be less reliable when the platelet count is less than 93w690/u L due to statistical imprecision. The IPF [...] in a decreased state of production. References: [employer] The Clinical Value of the Immature Platelet Fraction (IPF) in Cell Recovery Document Number 10-1143 12/2010 [employer] The Role of the Imm ature [...] Organization Address City/State/[place] [address] [facility] [address] (ABNORMAL) Hemoglobin and Hematocrit, blood (07/07/2017 4:55 PM EST) P athologist Signature Hemoglobin 9.1 (L) 13.7 - 16.5 [facility] gm/dL [facility] Comment: This result has been called to MALKA MORAN by DONALD GROSSMAN on 07 07 2017 at 1734, and has been read back. Hematocrit 26.6 (L) 40.5 - 48.5 % [facility] LABORATORY Comment: This result [...] Organization Address City/State/[place] [address] (ABNORMAL) BLOOD GAS 2 ARTERIAL (07/07/2017 4:38 PM EST) Analysis Performed At Patho logist Time Signature pH Art 7.37 7.35 - [facility] 7.45 [facility] LABORATORY pCO2 Art 44 35 - 45 [facility] mmHg [facility] LABORATORY pO2 Art 322 (H) 85 - 104 [facility] LABORATORY HCO3 Art 24.9 20.0 - [facility] 26.0 [facility] mmol/L [facility] LABORATORY BE Art -0.4 -3.0 - 3.0 [facility] mmol/L [facility] LABORATORY Hgb Blood Gas 10.1 (L) 13.7 - [facility] 16.5 gm/dL [facility] O2HB Art 98.7 (H) 94.0 - [facility] 97.0 % [facility]ORY COHB Art 0.1 % [facility] LABORATORY Comment: Nonsmokers: 0.5-1.5% COHB Smokers: Variable, but usually less than 10% Toxic: 20-30% COHB Lethal: Greater than 60% COHB METHB Art 0.3 <=1.5 % [facility] LABORATORY Na Whole Blood 130 (L) 135 - 145 mmol/L [facility] K Whole Blood 5.7 (H) 3.5 - 5.0 mmol/L [facility] Comment: Please note: Patients with WBC >100,000 may have falsely elevated Potassium levels. Contact the Clinical Chemistry L aboratory if there are any questions. ICa Whole Blood 0.89 (Critical) 1.15 - 1.33 mmol/L [facility] LABORATORY Comment: Noted by instrumentation and control technician. Note: ??Total bilirubin higher than 20 m g/dL may lead to falsely low ionized calcium. CL Whole Blood 101 98 - 107 mmol/L [facility] Gluc Whole Bld 295 (H) 65 - 199 mg/dL [facility] Comment: Diabetes: >=200 mg/dL plus symp toms. Lactate WB 1.7 0.5 - 2.2 mmol/L [facility] Specimen Anatomical Collection Method Collection Time Receive d Time (Source) Location / / Volume Laterality Blood specimen 07/07/2017 4:38 PM 017 4:38 (specimen) EST PM EST Daphne Shahid MD CHEMISTRY ORDERABLES Performing Organization Address City/State/[place] [address] (ABNORMAL) BLOOD GAS 2 VENOUS (07/07/2017 4:06 PM EST) Analysis Performed At Patho logist Time Signature pH Cody 7.31 (L) 7.32 - [facility] 7.42 [facility] LABORATORY pCO2 Cody 47 41 - 51 [facility] LABORATORY pO2 Cody 53 (H) 25 - 40 [facility] LABORATORY HCO3 Cody 22.7 mmol/L [facility] LABORATORY BE Cody -3.7 mmol/L [facility] LABORATORY Hgb Blood Gas 10.2 (L) 13.7 - [facility] 16.5 gm/dL [facility] O2HB Cody 81.0 % [facility] LABORATORY COHB Cody 1.0 % [facility] LABORATORY Comment: Nonsmokers: 0.5-1.5% COHB Smokers: Variable, but usually less than 10% Toxic: 20-30% COHB Lethal: Greater than 60% COHB METHB Cody 0.3 <=1.5 % [facility] LABORATORY Na Whole Blood 132 (L) 135 - 145 mmol/L [facility] K Whole Blood 5.3 (H) 3.5 - 5.0 mmol/L [facility] Comment: Please note: Patients with WBC >100,000 may have falsely elevated Potassium levels. Contact the Clinical Chemistry L aboratory if there are any questions. ICa Whole Blood 0.90 (Critical) 1.15 - 1.33 mmol/L [facility]ORATORY Comment: Noted by instrumentation and control technician. Note: ??Total bilirubin higher than 20 m g/dL may lead to falsely low ionized calcium. CL Whole Blood 100 98 - 107 mmol/L [facility] Gluc Whole Bld 231 (H) 65 - 199 mg/dL [facility] Comment: Diabetes: >=200 mg/dL plus symp toms Lactate WB 1.1 0.5 - 2.2 mmol/L [facility] BGas Source Venous [facility] LABORATORY Specimen Anatomical Collection Method Collection Time Receive d Time (Source) Location / / Volume Laterality Blood specimen 07/07/2017 4:06 PM 017 4:06 (specimen) EST PM EST Daphne Shahid MD CHEMISTRY ORDERABLES Performing Organization Address City/State/[place] [address] (ABNORMAL) BLOOD GAS 2 ARTERIAL (07/07/2017 4:05 PM EST) Analysis Performed At Patho logist Time Signature pH Art 7.36 7.35 - [facility] 7.45 [facility] LABORATORY pCO2 Art 40 35 - 45 [facility] mmHg [facility] LABORATORY pO2 Art 282 (H) 85 - 104 [facility] LABORATORY HCO3 Art 22.1 20.0 - [facility] 26.0 [facility] mmol/L [facility] LABORATORY BE Art -3.4 (L) -3.0 - 3.0 [facility] mmol/L [facility] Hgb Blood Gas 10.2 (L) 13.7 - [facility] 16.5 gm/dL [facility] O2HB Art 98.4 (H) 94.0 - [facility] 97.0 % [facility] COHB Art 0.3 % [facility] LABORATORY Comment: Nonsmokers: 0.5-1.5% COHB Smokers: Variable, but usually less than 10% Toxic: 20-30% COHB Lethal: Greater than 60% COHB METHB Art 0.3 <=1.5 % [facility] LABORATORY Na Whole Blood 131 (L) 135 - 145 mmol/L [facility] K Whole Blood 5.4 (H) 3.5 - 5.0 mmol/L [facility] Comment: Please note: Patients with WBC >100,000 may have falsely elevated Potassium levels. Contact the Clinical Chemistry L aboratory if there are any questions. ICa Whole Blood 0.86 (Critical) 1.15 - 1.33 mmol/L [facility]ORY Comment: Noted by instrumentation and control technician. Note: ??Total bilirubin higher than 20 m g/dL may lead to falsely low ionized calcium. CL Whole Blood 101 98 - 107 mmol/L [facility] Gluc Whole Bld 260 (H) 65 - 199 mg/dL [facility] Comment: Diabetes: >=200 mg/dL plus symp toms. Lactate WB 1.4 0.5 - 2.2 mmol/L [facility] Specimen Anatomical Collection Method Collection Time Receive d Time (Source) Location / / Volume Laterality Blood specimen 07/07/2017 4:05 PM 017 4:05 (specimen) EST PM EST Daphne Shahid MD CHEMISTRY ORDERABLES Performing Organization Address City/State/[place] [address] (ABNORMAL) BLOOD GAS 2 ARTERIAL (07/07/2017 2:29 PM EST) Analysis Performed At Patho logist Time Signature pH Art 7.43 7.35 - [facility] 7.45 [facility] LABORATORY pCO2 Art 36 35 - 45 [facility] LABORATORY pO2 Art 221 (H) 85 - 104 [facility] LABORATORY HCO3 Art 23.2 20.0 - [facility] 26.0 [facility] mmol/L [facility] LABORAT[facility] BE Art -1.2 -3.0 - 3.0 [facility] [facility] mmol/L [facility] Hgb Blood Gas 13.9 13.7 - [facility] 16.5 gm/dL [facility] O2HB Art 97.8 (H) 94.0 - [facility] 97.0 % [facility] COHB Art 1.1 % [facility] Comment: Nonsmokers: 0.5-1.5% COHB Smokers: Variable, but usually less than 10% Toxic: 20-30% COHB Lethal: Greater than 60% COHB METHB Art 0.3 <=1.5 % [facility] Na Whole Blood 139 135 - 145 mmol/L [facility] K Whole Blood 4.0 3.5 - 5.0 mmol/L [facility] Comment: Please note: Patients with WBC >100,000 may have falsely elevated Potassium levels. Contact the Clinical Chemistry L aboratory if there are any questions. ICa Whole Blood 1.11 (L) 1.15 - 1.33 mmol/L [facility] Comment: Note: ??Total bilirubin higher than 20 m g/dL may lead to falsely low ionized calcium. CL Whole Blood 104 98 - 107 mmol/L [facility] Gluc Whole Bld 184 65 - 199 mg/dL [facility] Comment: Diabetes: >=200 mg/dL plus symp toms. Lactate WB 1.5 0.5 - 2.2 mmol/L [facility] Specimen Anatomical Collection Method Collection Time Receive d Time (Source) Location / / Volume Laterality Blood specimen 07/07/2017 2:29 PM 017 2:29 (specimen) EST PM EST Daphne Shahid MD CHEMISTRY ORDERABLES Performing Organization Address City/State/[place] [address] Prepare Coag Factors (Non-Hemophilia) (07/07/2017 1:25 PM EST) P athologist Signature Dispensed? Yes [facility] Specimen Anatomical Collection Method Collection Time Receive d Time (Source) Location / / Volume Laterality Blood specimen 07/07/2017 1:25 PM 017 1:21 (specimen) EST PM EST Daphne Shahid MD BLOOD BANK ORDERABLES Performing Organization Address City/State/ZIP Code Phon e Number [address] Prepare RBC (07/07/2017 1:10 PM EST) P athologist Signature Dispensed? Yes [facility] Specimen Anatomical Collection Method Collection Time Receive d Time (Source) Location / / Volume Laterality Blood specimen 07/07/2017 1:10 PM 017 1:05 (specimen) EST PM EST Daphne Shahid MD BLOOD BANK ORDERABLES Performing Organization Address City/State/ZIP Code Phon e Number [address] POCT Glucose (07/07/2017 11:56 AM EST) P athologist Signature POC Glucose 188 65 - 199 [facility] Comment: Supplemental ranges: <140 mg/dL before meals <180 mg/dL all other times of the day Specimen Anatomical Collection Method Collection Time Receive d Time (Source) Location / / Volume Laterality Blood specimen 07/07/2017 11:56 7 (specimen) AM EST 11:56 AM EST Daphne Shahid MD POINT OF CARE TEST ORDERABLE S Performing Organization Address City/State/ZIP Code Phon e Number [address] POCT Glucose (07/07/2017 11:05 AM EST) P athologist Signature POC Glucose 168 65 - 199 [facility] mg/dL [facility] Comment: Supplemental ranges: <140 mg/dL before meals <180 mg/dL all other times of the day Specimen Anatomical Collection Method Collection Time Receive d Time (Source) Location / / Volume Laterality Blood specimen 07/07/2017 11:05 7 (specimen) AM EST 11:05 AM EST Daphne Shahid MD POINT OF CARE TEST ORDERABLE S Performing Organization Address City/State/ZIP Code Phon e Number [address] POCT Glucose (07/07/2017 10:02 AM EST) athologist Signature POC Glucose 191 65 - 199 [place] mg/dL [facility] Comment: Supplemental ranges: <140 mg/dL before meals <180 mg/dL all other times of the day Specimen Anatomical Collection Method Collection Time Receive d Time (Source) Location / / Volume Laterality Blood specimen 07/07/2017 10:02 7 (specimen) AM EST 10:02 AM EST Daphne Shahid MD POINT OF CARE TEST ORDERABLE S Performing Organization Address City/State/ZIP Code Phon e Number [address] POCT Glucose (07/07/2017 7:53 AM EST) athologist Signature POC Glucose 178 65 - 199 [facility] mg/dL [facility] Comment: Supplemental ranges: <140 mg/dL before meals <180 mg/dL all other times of the day Specimen Anatomical Collection Method Collection Time Receive d Time (Source) Location / / Volume Laterality Blood specimen 07/07/2017 7:53 AM 017 7:53 (specimen) EST AM EST Daphne Shahid MD POINT OF CARE TEST ORDERABLE S Performing Organization Address City/State/[place] [address] POCT Glucose (07/07/2017 7:03 AM EST) athologist Signature POC Glucose 188 65 - 199 [facility] mg/dL [facility] Comment: Supplemental ranges: <140 mg/dL before meals <180 mg/dL all other times of the day Specimen Anatomical Collection Method Collection Time Receive d Time (Source) Location / / Volume Laterality Blood specimen 07/07/2017 7:03 AM 017 7:03 (specimen) EST AM EST Daphne Shahid MD POINT OF CARE TEST ORDERABLE S Performing Organization Address City/State/[place] [address] (ABNORMAL) POCT Glucose (07/07/2017 6:17 AM EST) athologist Signature POC Glucose 207 (H) 65 - 199 [facility] mg/dL [facility] Comment: Supplemental ranges: <140 mg/dL before meals <180 mg/dL all other times of the day Specimen Anatomical Collection Method Collection Time Receive d Time (Source) Location / / Volume Laterality Blood specimen 07/07/2017 6:17 AM 017 6:17 (specimen) EST AM EST Daphne Shahid MD POINT OF CARE TEST ORDERABLE S Performing Organization Address City/State/ZIP Code Phon e Number [place] [id number] Differential, Automated (07/07/2017 5:15 AM EST) athologist [facility] Neutrophils % 69.7 % [facility] Neutr Abs (ANC) 5.32 1.70 - [facility] 6.10 [facility] x10(3)/[facility] LABORATORY Lymphocytes % 16.3 % [facility] Lymphocytes Abs 1.2 0.9 - 3.2 [facility] x10(3)/[facility] LABORATORY Monocytes % 10.5 % [facility] Monocyte Abs 0.8 0.3 - 0.9 [facility] x10(3)/[facility] LABORATORY Eosinophils % 2.5 % [facility] Eosinophils Abs 0.2 0.0 - 0.4 [facility] x10(3)/[facility] LABORATORY Basophils % 0.7 % [facility] Basophils Abs 0.0 0.0 - 0.1 [facility] x10(3)/[facility] LABORATORY Immature Gran % 0.30 % [facility] [...] Melisa Gran Abs 0.02 0.00 - 0.04 x10(3)/[facility] Specimen Anatomical Collection Method Collection Time Receive d Time (Source) Location / / Volume Laterality Blood specimen 07/07/2017 5:15 AM 017 5:34 (specimen) EST AM EST Resulting Agency Comment Spec In Lab Daphne Shahid MD HEMATOLOGY ORDERABLES Performing Organization Address City/State/[place] [address] (ABNORMAL) Hemogram (07/07/2017 5:15 AM EST) Analysis Performed At Patho logist Time Signature WBC 7.6 4.0 - 9.5 [facility] x10(3)/[facility] LABORATORY RBC 4.82 4.58 - [facility] 5.54 [facility] x10(6)/[facility] LABORATORY Hemoglobin 14.4 13.7 - [facility] 16.[facility]m/dL [facility] Hematocrit 42.1 40.5 - [facility] 48.5 % [facility] MCV 87.3 82.9 - [facility] LABORATORY MCH 29.9 27.5 - [facility] 32.1 pg [facility] MCHC 34.2 32.0 - [facility] 35.7 gm/dL [facility] Platelets 188 145 - 357 [facility] x10(3)/[facility] LABORATORY RDWSD 45.1 (H) 36.0 - [facility] 45.[address] [facility] LABORATORY RDWCV 14.3 (H) 11.4 - [facility] 13.8 % [facility] MPV 9.4 7.6 - 12.9 [facility] LABORATORY nRBC % Auto 0.0 % [facility]OR[facility]ORY nRBC Abs Auto 0.000 0.000 - [facility] 0.000 [facility] x10(3)/[facility] LABORATORY Specimen Anatomical Collection Method Collection Time Receive d Time (Source) Location / / Volume Laterality Blood specimen 07/07/2017 5:15 AM 017 5:34 (specimen) EST AM EST Resulting Agency Comment Spec In Lab Daphne Shahid MD HEMATOLOGY ORDERABLES Performing Organization Address City/State/[place] [address] (ABNORMAL) APTT (07/07/2017 5:15 AM EST) athologist Signature PTT 69 (H) 25 - 35 sec [facility] Comment: The recommended therapeutic range for fu ll dose, unfractionated heparin at [facility] [place] is 80 ? 114 seconds. The [...] Shahid MD HEMATOLOGY ORDERABLES Performing Organization Address City/[facility]/[place] [address] Magnesium (07/07/2017 5:15 AM EST) athologist Signature Magnesium 0.94 0.69 - 1.07 [facility] mmol/L [facility] Specimen Anatomical Collection Method Collection Time Receive d Time (Source) Location / / Volume Laterality Blood specimen 07/07/2017 5:15 AM 017 5:34 (specimen) EST AM EST Resulting Agency Comment Spec In Lab Daphne Shahid MD CHEMISTRY ORDERABLES Performing Organization Address City/[facility]/[place] [address] (ABNORMAL) Basic Metabolic Panel (non-fasting) (07/07/2017 5:15 AM EST) P athologist Signature Glucose Lvl 203 (H) 65 - 199 [facility] mg/dL [facility] Comment: Diabetes: >=200 [...] [facility] LAB[facility]ORY Estimated GFR >60 >=60 [facility] Comment: The reported eGFR should be multiplied b y 1.2 for patients. The MDRD is not an appropriate measure o f renal function for patients with body mass extremes or in patients with acute kidney failure. http://Hunie/DHnkdep http://Hunie/DHMCnkf Specimen Anatomical Collection Method Collection Time Receive d Time (Source) Location / / Volume Laterality Blood specimen 07/07/2017 5:15 AM 017 5:34 (specimen) EST AM EST Resulting Agency Comment Spec In Lab Daphne Shahid MD CHEMISTRY ORDERABLES Performing Organization Address City/State/[place] [address] (ABNORMAL) Cardiac Enzymes (LEB/CGP) (07/07/2017 5:15 AM EST) P athologist Signature Troponin-T 2.07 (H) 0.00 - [facility] 0.00 ng/mL [facility] Comment: The 99th [...] additional sample may be indicated. Reference: Third [place] Definition of Myocardial Infarction. Journal of the [employer] 2012;60:1581-98 CK, Total 88 0 - 200 unit/L [facility] Specimen Anatomical Collection Method Collection Time Receive d Time (Source) Location / / Volume Laterality Blood specimen 07/07/2017 5:15 AM 017 5:34 (specimen) EST AM EST Resulting Agency Comment Spec In Lab Daphne Shahid MD CHEMISTRY ORDERABLES Performing Organization Address City/[facility]/ZIP [facility] Phon e Number [address] POCT Glucose (07/07/2017 5:01 AM EST) athologist Signature POC Glucose 182 65 - 199 [facility] mg/dL [facility] Comment: Supplemental ranges: <140 mg/dL before meals <180 mg/dL all other times of the day Specimen Anatomical Collection Method Collection Time Receive d Time (Source) Location / / Volume Laterality Blood specimen 07/07/2017 5:01 AM 017 5:01 (specimen) EST AM EST Daphne Shahid MD POINT OF CARE TEST ORDERABLE S Performing Organization Address City/[facility] Phon e Number [address] POCT Glucose (07/07/2017 4:08 AM EST) athologist Signature POC Glucose 199 65 - 199 [facility] mg/dL [facility] Comment: Supplemental ranges: <140 mg/dL before meals <180 mg/dL all other times of the day Specimen Anatomical Collection Method Collection Time Receive d Time (Source) Location / / Volume Laterality Blood specimen 07/07/2017 4:08 AM 017 4:08 (specimen) EST AM EST Daphne Shahid MD POINT OF CARE TEST ORDERABLE S Performing Organization Address City/State/ZIP Code Phon e Number [address] POCT Glucose (07/07/2017 3:03 AM EST) athologist Signature POC Glucose 188 65 - 199 [place] mg/dL [facility] Comment: Supplemental ranges: <140 mg/dL before meals <180 mg/dL all other times of the day Specimen Anatomical Collection Method Collection Time Receive d Time (Source) Location / / Volume Laterality Blood specimen 07/07/2017 3:03 AM 017 3:03 (specimen) EST AM EST Daphne Shahid MD POINT OF CARE TEST ORDERABLE S Performing Organization Address City/State/[place] [address] (ABNORMAL) POCT Glucose (07/07/2017 2:08 AM EST) athologist Signature POC Glucose 200 (H) 65 - 199 [place] mg/dL [facility] Comment: Supplemental ranges: <140 mg/dL before meals <180 mg/dL all other times of the day Specimen Anatomical Collection Method Collection Time Receive d Time (Source) Location / / Volume Laterality Blood specimen 07/07/2017 2:08 AM 017 2:08 (specimen) EST AM EST Daphne Shahid MD POINT OF CARE TEST ORDERABLE S Performing Organization Address City/State/ZIP Code Phon e Number [address] (ABNORMAL) POCT Glucose (07/07/2017 1:31 AM EST) P athologist Signature POC Glucose 209 (H) 65 - 199 [place] mg/dL [facility] Comment: Supplemental ranges: <140 mg/dL before meals <180 mg/dL all other times of the day Specimen Anatomical Collection Method Collection Time Receive d Time (Source) Location / / Volume Laterality Blood specimen 07/07/2017 1:31 AM 017 1:31 (specimen) EST AM EST Daphne Shahid MD POINT OF CARE TEST ORDERABLE S Performing Organization Address City/State/[place] [address] XR Chest PA or [...] POC Glucose 161 65 - 199 [facility] mg/dL [facility] Comment: Supplemental ranges: <140 mg/dL before meals <180 mg/dL all other times of the day Specimen Anatomical Collection Method Collection Time Receive d Time (Source) Location / / Volume Laterality Blood specimen 07/07/2017 12:07 7 (specimen) AM EST 12:07 AM EST Daphne Shahid MD POINT OF CARE TEST ORDERABLE S Performing Organization Address City/State/[place] [address] (ABNORMAL) APTT (07/07/2017 12:00 AM EST) athologist Signature PTT 103 (H) 25 - 35 sec [facility] Comment: The recommended therapeutic range for fu ll dose, unfractionated heparin at [facility] [place] is 80 ? 114 seconds. The [...] Shahid MD HEMATOLOGY ORDERABLES Performing Organization Address City/[facility]/[place] [address] POCT Glucose (07/06/2017 9:55 PM EST) athologist Signature POC Glucose 109 65 - 199 [facility] mg/dL [facility] Comment: Supplemental ranges: [...] City/[facility]/[place] [address] POCT Glucose (07/06/2017 9:04 PM EST) athologist Signature POC Glucose 120 65 - 199 [facility] mg/dL [facility] Comment: Supplemental ranges: [...] City/[facility]/[place] [address] POCT Glucose (07/06/2017 7:45 PM EST) athologist Signature POC Glucose 158 65 - 199 [facility] mg/dL [facility] Comment: Supplemental ranges: [...] City/[facility]/[place] [address] Potassium (07/06/2017 7:40 PM EST) athologist Signature Potassium 3.9 3.5 - 5.0 [facility] mmol/L [facility] Comment: Please note: [...] Shahid MD CHEMISTRY ORDERABLES Performing Organization Address City/[facility]/[place] [address] (ABNORMAL) Cardiac Enzymes (LEB/CGP) (07/06/2017 7:40 PM EST) athologist Signature Troponin-T 2.27 (H) 0.00 - [facility] 0.[facility] ng/mL [facility] Comment: The 99th [...] additional sample may be indicated. Reference: Third [place] Definition of Myocardial Infarction. Journal of the [employer] 2012;60:1581-98 CK, Total 93 0 - 200 unit/L [facility] Specimen Anatomical Collection Method Collection Time Receive d Time (Source) Location / / Volume Laterality Blood specimen 07/06/2017 7:40 PM 017 7:52 (specimen) EST PM EST Resulting Agency Comment Spec In Lab Daphne Shahid MD CHEMISTRY ORDERABLES Performing Organization Address City/State/[place] [address] (ABNORMAL) POCT Glucose (07/06/2017 7:13 PM EST) athologist Signature POC Glucose 200 (H) 65 - 199 [facility] mg/dL [facility] Comment: Supplemental ranges: [...] City/[facility]/[place] [address] (ABNORMAL) APTT (07/06/2017 6:15 PM EST) athologist Signature PTT 94 (H) 25 - 35 sec [facility] Comment: The recommended therapeutic range for fu ll dose, unfractionated heparin at [facility] [place] is 80 ? 114 seconds. The [...] Shahid MD HEMATOLOGY ORDERABLES Performing Organization Address City/[facility]/[place] [address] (ABNORMAL) POCT Glucose (07/06/2017 6:03 PM EST) athologist Signature POC Glucose 236 (H) 65 - 199 [facility] mg/dL [facility] Comment: Supplemental ranges: [...] City/[facility]/[place] [address] (ABNORMAL) POCT Glucose (07/06/2017 5:01 PM EST) athologist Signature POC Glucose 235 (H) 65 - 199 [facility] mg/dL [facility] Comment: Supplemental ranges: <140 mg/dL before meals <180 mg/dL all other times of the day Specimen Anatomical Collection Method Collection Time Receive d Time (Source) Location / / Volume Laterality Blood specimen 07/06/2017 5:01 PM 017 5:01 (specimen) EST PM EST Daphne Shahid MD POINT OF CARE TEST ORDERABLE S Performing Organization Address City/State/[place] [address] (ABNORMAL) POCT Glucose (07/06/2017 4:06 PM EST) athologist Signature POC Glucose 202 (H) 65 - 199 [place] mg/dL [facility] Comment: Supplemental ranges: [...] City/[facility]/[place] [address] POCT Glucose (07/06/2017 2:59 PM EST) athologist Signature POC Glucose 178 65 - 199 [place] mg/dL [facility] Comment: Supplemental ranges: <140 mg/dL before meals <180 mg/dL all other times of the day Specimen Anatomical Collection Method Collection Time Receive d Time (Source) Location / / Volume Laterality Blood specimen 07/06/2017 2:59 PM 017 2:59 (specimen) EST PM EST Daphne Shahid MD POINT OF CARE TEST ORDERABLE S Performing Organization Address City/State/[place] [address] (ABNORMAL) Cardiac Enzymes (LEB/CGP) (07/06/2017 2:10 PM EST) athologist Signature Troponin-T 2.34 (H) 0.00 - [place] 0.00 ng/mL [facility] Comment: The 99th [...] additional sample may be indicated. Reference: Third [place] Definition of Myocardial Infarction. Journal of the [place] 2012;60:1581-98 CK, Total 101 0 - 200 unit/L [facility] Specimen Anatomical Collection Method Collection Time Receive d Time (Source) Location / / Volume Laterality Blood specimen 07/06/2017 2:10 PM 017 2:26 (specimen) EST PM EST Resulting Agency Comment Spec In Lab Daphne Shahid MD CHEMISTRY ORDERABLES Performing Organization Address City/State/[place] [address] POCT Glucose (07/06/2017 2:08 PM EST) P athologist Signature POC Glucose 192 65 - 199 [facility] mg/dL [facility] Comment: Supplemental ranges: <140 mg/dL before meals <180 mg/dL all other times of the day Specimen Anatomical Collection Method Collection Time Receive d Time (Source) Location / / Volume Laterality Blood specimen 07/06/2017 2:08 PM 017 2:08 (specimen) EST PM EST Daphne Shahid MD POINT OF CARE TEST ORDERABLE S Performing Organization Address City/State/ZIP Code Phon e Number [address] POCT Glucose (07/06/2017 1:04 PM EST) P athologist Signature POC Glucose 162 65 - 199 [facility] mg/dL [facility] Comment: Supplemental ranges: [...] City/[facility]/ZIP Code Phon e Number [address] POCT Glucose (07/06/2017 12:05 PM EST) P athologist Signature POC Glucose 196 65 - 199 [facility] mg/dL [facility] Comment: Supplemental ranges: <140 mg/dL before meals <180 mg/dL all other times of the day Specimen Anatomical Collection Method Collection Time Receive d Time (Source) Location / / Volume Laterality Blood specimen 07/06/2017 12:05 7 (specimen) PM EST 12:05 PM EST Daphne Shahid MD POINT OF CARE TEST ORDERABLE S Performing Organization Address City/State/[place] [address] EKG 12 Lead (07/06/2017 12:00 PM EST) Component Value Ref Range Test Analysis Performed Pathologis t Method Time At Signature Ventricular rate 91 BPM MUSE SYSTEM Atrial Rate 91 BPM MUSE SYSTEM P-R Interval 140 ms MUSE SYSTEM QRS Duration 94 ms MUSE SYSTEM Q-T Interval 394 ms MUSE SYSTEM QTC Calculated 484 ms MUSE SYSTEM (Bezet) Calculated P [place] 36 degrees MUSE SYSTEM Calculated R [place] -19 degrees MUSE SYSTEM Calculated T [place] 104 degrees MUSE SYSTEM INTERPRETATION Normal sinus rhythm MUSE SYSTEM 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) ST & T wave abnormality, consider lateral ischemia Abnormal ECG When compared with ECG of 05-JUL-2017 20:39, No significant change was found Confirmed by MD Luci, Taurus Braun ([id number]) on 07/06/2017 5:07:33 PM Specimen Anatomical Collection Method Collection Time Receive d Time (Source) Location / / Volume Laterality 07/06/2017 12:00 07/06/2017 5:07 PM EST PM EST Daphne Shahid MD ECG ORDERABLES Performing Organization Address City/State/ZIP Code Phon e Number MUSE SYSTEM ABORH Recheck Status (07/06/2017 12:00 PM EST) Patholo gist Method Time Signature ABORH Type Completed [facility] LABORATORY Specimen Anatomical Collection Method Collection Time Receive d Time (Source) Location / / Volume Laterality Blood specimen 07/06/2017 12:00 7 (specimen) PM EST 12:24 PM EST Resulting Agency Comment Spec In Lab Daphne Shahid MD BLOOD BANK ORDERABLES Performing Organization Address City/[facility]/[place] [address] Antibody screen (07/06/2017 12:00 PM EST) [facility] Method Time Signature Ab Screen Negative [facility] LABORATORY Expires at 07/09/2017 [facility] 235 on: [facility] LABORATORY Specimen Anatomical Collection Method Collection Time Receive d Time (Source) Location / / Volume Laterality Blood specimen 07/06/2017 12:00 7 (specimen) PM EST 12:24 PM EST Resulting Agency Comment Spec In Lab Daphne Shahid MD BLOOD BANK ORDERABLES Performing Organization Address City/[facility]/[place] [address] ABO/Rh Typing (07/06/2017 12:00 [...] Organization Address City/State/[place] [address] Prothrombin Time (07/06/2017 11:24 AM EST) athologist Signature PT 13.3 11.8 - 14.0 [facility] LABORATORY INR 1.0 0.9 - 1.1 [facility] [...] Shahid MD HEMATOLOGY ORDERABLES Performing Organization Address City/[facility]/[place] [address] (ABNORMAL) APTT (07/06/2017 11:24 AM EST) athologist Signature PTT 52 (H) 25 - 35 sec [facility] LABORATORY Comment: The recommended therapeutic range for fu ll dose, unfractionated heparin at [facility] [place] is 80 ? 114 seconds. The [...] Organization Address City/State/ZIP Code Phon e Number [address] POCT Glucose (07/06/2017 11:02 AM EST) athologist Signature POC Glucose 187 65 - 199 [place] mg/dL [facility] LABORATORY Comment: Supplemental ranges: <140 mg/dL before meals <180 mg/dL all other times of the day Specimen Anatomical Collection Method Collection Time Receive d Time (Source) Location / / Volume Laterality Blood specimen 07/06/2017 11:02 7 (specimen) AM EST 11:02 AM EST Daphne Shahid MD POINT OF CARE TEST ORDERABLE S Performing Organization Address City/State/ZIP Code Phon e Number [address] POCT Glucose (07/06/2017 10:18 AM EST) athologist Signature POC Glucose 193 65 - 199 [facility]/dL [facility] LABORATORY Comment: Supplemental ranges: <140 mg/dL before meals <180 mg/dL all other times of the day Specimen Anatomical Collection Method Collection Time Receive d Time (Source) Location / / Volume Laterality Blood specimen 07/06/2017 10:18 7 (specimen) AM EST 10:18 AM EST Daphne Shahid MD POINT OF CARE TEST ORDERABLE S Performing Organization Address City/State/ZIP Code Phon e Number [address] POCT Glucose (07/06/2017 9:25 AM EST) athologist Signature POC Glucose 182 65 - 199 [place] mg/dL [facility] LABORATORY Comment: Supplemental ranges: <140 mg/dL before meals <180 mg/dL all other times of the day Specimen Anatomical Collection Method Collection Time Receive d Time (Source) Location / / Volume Laterality Blood specimen 07/06/2017 9:25 AM 017 9:25 (specimen) EST AM EST Daphne Shahid MD POINT OF CARE TEST ORDERABLE S Performing Organization Address City/State/[place] [address] (ABNORMAL) Cardiac Enzymes (LEB/CGP) (07/06/2017 8:10 AM EST) athologist Signature Troponin-T 2.26 (H) 0.00 - [facility] 0.00 ng/mL [facility] LABORATORY Comment: The 99th [...] additional sample may be indicated. Reference: Third Dover Definition of Myocardial Infarction. Journal of the [place] College [employer] 2012;60:1581-98 CK, Total 124 0 - 200 unit/L [facility] LABORATORY Specimen Anatomical Collection Method Collection Time Receive d Time (Source) Location / / Volume Laterality Blood specimen 07/06/2017 8:10 AM 017 8:23 (specimen) EST AM EST Resulting Agency Comment Spec In Lab Daphne Shahid MD CHEMISTRY ORDERABLES Performing Organization Address City/State/[place] [address] Magnesium (07/06/2017 8:10 AM EST) athologist Signature Magnesium 0.84 0.69 - 1.07 [facility] mmol/L [facility] LABORATORY Specimen Anatomical Collection Method Collection Time Receive d Time (Source) Location / / Volume Laterality Blood specimen 07/06/2017 8:10 AM 017 8:21 (specimen) EST AM EST Resulting Agency Comment Spec In Lab Daphne Shahid MD CHEMISTRY ORDERABLES Performing Organization Address City/[facility]/[place] [address] (ABNORMAL) Basic Metabolic Panel (non-fasting) (07/06/2017 8:10 AM EST) P athologist Signature Glucose Lvl 199 65 - 199 [facility] mg/dL [facility] LABORATORY Comment: Diabetes: >=200 [...] [facility] LABORATORY Estimated GFR >60 >=60 [facility] LABORATORY Comment: The reported eGFR should be multiplied b y 1.2 for patients. The MDRD is not an appropriate measure o f renal function for patients with body mass extremes or in patients with acute kidney failure. http://[employer].Aspen Evian/DHnkdep http://[employer].Aspen Evian/DHMCnkf Specimen Anatomical Collection Method Collection Time Receive d Time (Source) Location / / Volume Laterality Blood specimen 07/06/2017 8:10 AM 017 8:21 (specimen) EST AM EST Resulting Agency Comment Spec In Lab Daphne Shahid MD CHEMISTRY ORDERABLES Performing Organization Address City/State/[place] [address] POCT Glucose (07/06/2017 7:34 AM EST) P athologist Signature POC Glucose 198 65 - 199 [facility] mg/dL [facility] LABORATORY Comment: Supplemental ranges: <140 mg/dL before meals <180 mg/dL all other times of the day Specimen Anatomical Collection Method Collection Time Receive d Time (Source) Location / / Volume Laterality Blood specimen 07/06/2017 7:34 AM 017 7:34 (specimen) EST AM EST Daphne Shahid MD POINT OF CARE TEST ORDERABLE S Performing Organization Address City/State/ZIP Code Phon e Number [address] POCT Glucose (07/06/2017 7:03 AM EST) athologist Signature POC Glucose 181 65 - 199 [facility] mg/dL [facility] LABORATORY Comment: Supplemental ranges: <140 mg/dL before meals <180 mg/dL all other times of the day Specimen Anatomical Collection Method Collection Time Receive d Time (Source) Location / / Volume Laterality Blood specimen 07/06/2017 7:03 AM 017 7:03 (specimen) EST AM EST Daphne Shahid MD POINT OF CARE TEST ORDERABLE S Performing Organization Address City/State/[place] [address] XR Chest PA or [...] POC Glucose 172 65 - 199 [facility] mg/dL [facility] LABORATORY Comment: Supplemental ranges: <140 mg/dL before meals <180 mg/dL all other times of the day Specimen Anatomical Collection Method Collection Time Receive d Time (Source) Location / / Volume Laterality Blood specimen 07/06/2017 6:21 AM 017 6:21 (specimen) EST AM EST Daphne Shahid MD POINT OF CARE TEST ORDERABLE S Performing Organization Address City/State/[place] [address] POCT Glucose (07/06/2017 5:08 AM EST) athologist Signature POC Glucose 154 65 - 199 [facility] mg/dL [facility] LABORATORY Comment: Supplemental ranges: [...] City/[facility]/ZIP Code Phon e Number [address] POCT Glucose (07/06/2017 4:05 AM EST) athologist Signature POC Glucose 142 65 - 199 [facility] mg/dL [facility] LABORATORY Comment: Supplemental ranges: [...] City/[facility]/ZIP Code Phon e Number [address] POCT Glucose (07/06/2017 3:00 AM EST) athologist Signature POC Glucose 116 65 - 199 [facility] mg/dL [facility] LABORATORY Comment: Supplemental ranges: <140 mg/dL before meals <180 mg/dL all other times of the day Specimen Anatomical Collection Method Collection Time Receive d Time (Source) Location / / Volume Laterality Blood specimen 07/06/2017 3:00 AM 017 3:00 (specimen) EST AM EST Daphne Shahid MD POINT OF CARE TEST ORDERABLE S Performing Organization Address City/State/ZIP Code Phon e Number [address] Potassium (07/06/2017 2:20 AM EST) athologist Signature Potassium 3.9 3.5 - 5.0 [facility] mmol/L [facility] LABORATORY Comment: Please note: [...] Organization Address City/State/[place] [address] Differential, Automated (07/06/2017 2:20 AM EST) athologist Signature Neutrophils % 72.9 % [facility] LABORATORY Neutr Abs (ANC) 5.53 1.70 - [facility] 6.10 [facility] x10(3)[facility] LABORATORY Lymphocytes % 16.4 % [facility] Lymphocytes Abs 1.2 0.9 - 3.2 [facility] x10(3)/[facility] LABORATORY Monocytes % 9.4 % [facility] Monocyte Abs 0.7 0.3 - 0.9 [facility] x10(3)[facility] LABORATORY Eosinophils % 0.5 % [facility] Eosinophils Abs 0.0 0.0 - 0.4 [facility] x10(3)[facility] LABORATORY Basophils % 0.4 % [facility] Basophils Abs 0.0 0.0 - 0.1 [facility] x10(3)/[facility] LABORATORY Immature Gran % 0.40 % [facility] Comment: Immature granulocytes(IG's)percentage an d absolute count will include metamyelocytes, myelocytes, and promyelo cytes. Blood smears from CBCs yielding IG's will be scanned manually for concor dance. If this scan disagrees with the automated IG or if promyelocytes are not ed, a manual differential will be performed. Melisa Gran Abs 0.03 0.00 - 0.04 x10(3)/[facility] MAR Y [facility] LABORATORY Specimen Anatomical Collection Method Collection Time Receive d Time (Source) Location / / Volume Laterality Blood specimen 07/06/2017 2:20 AM 017 2:33 (specimen) EST AM EST Resulting Agency Comment Spec In Lab Daphne Shahid MD HEMATOLOGY ORDERABLES Performing Organization Address City/State/[place] [address] (ABNORMAL) Hemogram (07/06/2017 2:20 AM EST) Analysis Performed At Patho logist Time Signature WBC 7.6 4.0 - 9.5 [facility] x[facility](3)/[facility] LABORATORY RBC 4.52 (L) 4.58 - [facility] RYAN 5.54 [facility] x10(6)/[facility] LABORATORY Hemoglobin 13.4 (L) 13.7 - [facility] 16.5 gm/dL [facility] LABORATORY Hematocrit 39.7 (L) 40.5 - [facility] 48.5 % [facility] LABORATORY MCV 87.8 82.9 - [facility] RYAN [address] [facility] LABORATORY MCH 29.6 27.5 - [place] 32.1 pg [facility] LABORATORY MCHC 33.8 32.0 - [place] 35.7 gm/dL [facility] LABORATORY Platelets 189 145 - 357 [facility] x10(3)/[facility] LABORATORY RDWSD 45.6 (H) 36.0 - [facility] RYAN 45.[address] [facility] LABORATORY RDWCV 14.3 (H) 11.4 - [facility] RYAN 13.8 % [facility] LABORATORY MPV 9.1 7.6 - 12.9 [facility] LAB[facility]ATORY nRBC % Auto 0.0 % [facility] LABORATORY nRBC Abs Auto 0.000 0.000 - [place] 0.000 [facility] x10(3)/[facility] LABORATORY Specimen Anatomical Collection Method Collection Time Receive d Time (Source) Location / / Volume Laterality Blood specimen 07/06/2017 2:20 AM 017 2:33 (specimen) EST AM EST Resulting Agency Comment Spec In Lab Daphne Shahid MD HEMATOLOGY ORDERABLES Performing Organization Address City/State/[place] [address] (ABNORMAL) APTT (07/06/2017 2:20 AM EST) athologist Signature PTT 52 (H) 25 - 35 sec [facility] LABORATORY Comment: The recommended therapeutic range for fu ll dose, unfractionated heparin at [facility] [place] [place] is 80 ? 114 seconds. The [...] Organization Address City/State/[place] [address] POCT Glucose (07/06/2017 2:20 AM EST) athologist [facility] POC Glucose 115 65 - 199 [facility] mg/dL [facility] LABORATORY Comment: Supplemental ranges: <140 mg/dL before meals <180 mg/dL all other times of the day Specimen Anatomical Collection Method Collection Time Receive d Time (Source) Location / / Volume Laterality Blood specimen 07/06/2017 2:20 AM 017 2:20 (specimen) EST AM EST Daphne Shahid MD POINT OF CARE TEST ORDERABLE S Performing Organization Address City/State/[place] [address] (ABNORMAL) Cardiac Enzymes (LEB/CGP) (07/06/2017 2:20 AM EST) athologist Signature Troponin-T 2.13 (H) 0.00 - [facility] 0.00 ng/mL [facility] LABORATORY Comment: The 99th [...] additional sample may be indicated. Reference: Third [place] Definition of Myocardial Infarction. Journal of the [place] College [employer]iology 2012;60:1581-98 CK, Total 129 0 - 200 unit/L [facility] LABORATORY Specimen Anatomical Collection Method Collection Time Receive d Time (Source) Location / / Volume Laterality Blood specimen 07/06/2017 2:20 AM 017 2:33 (specimen) EST AM EST Resulting Agency Comment Spec In Lab Daphne Shahid MD CHEMISTRY ORDERABLES Performing Organization Address City/State/[place] [address] (ABNORMAL) Hemoglobin A1c (07/06/2017 [...] [id number] Est Avg Gluc See note mg/dL PROCTOR [...] Additional resources are available on [facility] ADA website. Macario HAMMOND, Ruthann J, Deysi R, et al. ??Tr anslating the A1C assay into estimated average glucose values. ??Diabetes Care 2008:31(8):2323-4723. Specimen Anatomical Collection Method Collection Time Receive d Time (Source) Location / / Volume Laterality Blood specimen 07/06/2017 2:20 AM 017 2:34 (specimen) EST AM EST Resulting Agency Comment Spec In Lab Daphne Shahid MD CHEMISTRY ORDERABLES Performing Organization Address City/State/[place] [address] (ABNORMAL) Lipid Panel (07/06/2017 2:20 AM EST) [facility] Method Time Signature Chol, Total 150 <=239 [place] mg/dL [facility] LABORATORY Triglycerides 129 <=199 [place] mg/dL [facility] LABORATORY HDL 32 (L) >=40 [place] mg/dL [facility] LABORATORY LDL Cholesterol 92 <=190 [place] mg/dL [facility] LABORATORY Chol/HDL Ratio 4.7 ratio [place] [facility] LABORATORY Lipid See Note [place] Interpretation [facility] LABORATORY Comment: Lipid management should be guided by a p atient? s ASCVD risk, goals and preferences. ACC/AHA Guidelines recommend high intens ity statin if clinical ASCVD or LDL greater than or equal to 190 mg/dL. [email or web address] Adults aged 40-75 with LDL 70-189 mg/dL should have their 10 year ASCVD risk estimated with the ACC/AHA ASCVD risk es timator http://tools.acc.org/LNHSI-Lupq-Xhxdmigk r/ Statin should be discussed if risk [...] Shahid MD CHEMISTRY ORDERABLES Performing Organization Address City/[facility]/[place] [address] POCT Glucose (07/06/2017 1:09 AM EST) athologist Signature POC Glucose 121 65 - 199 [facility] mg/dL [facility] LABORATORY Comment: Supplemental ranges: <140 mg/dL before meals <180 mg/dL all other times of the day Specimen Anatomical Collection Method Collection Time Receive d Time (Source) Location / / Volume Laterality Blood specimen 07/06/2017 1:09 AM 017 1:09 (specimen) EST AM EST Daphne Shahid MD POINT OF CARE TEST ORDERABLE S Performing Organization Address City/State/ZIP Code [place] [address] POCT Glucose (07/06/2017 12:06 AM EST) athologist Signature POC Glucose 147 65 - 199 [facility] mg/dL [facility] LABORATORY Comment: Supplemental ranges: <140 mg/dL before meals <180 mg/dL all other times of the day Specimen Anatomical Collection Method Collection Time Receive d Time (Source) Location / / Volume Laterality Blood specimen 07/06/2017 12:06 7 (specimen) AM EST 12:06 AM EST Daphne Shahid MD POINT OF CARE TEST ORDERABLE S Performing Organization Address City/State/[place] [address] (ABNORMAL) POCT Glucose (07/05/2017 10:56 PM EST) athologist Signature POC Glucose 200 (H) 65 - 199 [facility] mg/dL [facility] LABORATORY Comment: Supplemental ranges: <140 mg/dL before meals <180 mg/dL all other times of the day Specimen Anatomical Collection Method Collection Time Receive d Time (Source) Location / / Volume Laterality Blood specimen 07/05/2017 10:56 7 (specimen) PM EST 10:56 PM EST Daphne Shahid MD POINT OF CARE TEST ORDERABLE S Performing Organization Address City/State/[place] [address] (ABNORMAL) POCT Glucose (07/05/2017 10:05 PM EST) athologist Signature POC Glucose 225 (H) 65 - 199 [facility] mg/dL [facility] LABORATORY Comment: Supplemental ranges: <140 mg/dL before meals <180 mg/dL all other times of the day Specimen Anatomical Collection Method Collection Time Receive d Time (Source) Location / / Volume Laterality Blood specimen 07/05/2017 10:05 7 (specimen) PM EST 10:05 PM EST Daphne Shahid MD POINT OF CARE TEST ORDERABLE S Performing Organization Address City/State/[place] [address] (ABNORMAL) POCT Glucose (07/05/2017 9:02 PM EST) P athologist Signature POC Glucose 301 (H) 65 - 199 [facility] RYAN mg/dL [facility] LABORATORY Comment: Supplemental ranges: <140 mg/dL before meals <180 mg/dL all other times of the day Specimen Anatomical Collection Method Collection Time Receive d Time (Source) Location / / Volume Laterality Blood specimen 07/05/2017 9:02 PM 017 9:02 (specimen) EST PM EST Daphne Shahid MD POINT OF CARE TEST ORDERABLE S Performing Organization Address City/State/ZIP Code Phon e Number [address] XR Chest PA or [...] 474 ms MUSE SYSTEM (Bezet) Calculated P [place] 50 degrees MUSE SYSTEM Calculated R [place] -28 degrees MUSE SYSTEM Calculated T [place] 90 degrees MUSE SYSTEM INTERPRETATION Sinus tachycardia [...] (ABNORMAL) Differential, Automated (07/05/2017 8:20 PM EST) [facility] gist Method Time Signature Neutrophils % 88.4 % [facility] LABORATORY Neutr Abs (ANC) 9.08 (H) 1.70 - [facility] 6.10 [facility] x10(3)/[facility] L LABORATORY Lymphocytes % 7.0 % [facility] LABORATORY Lymphocytes Abs 0.7 (L) 0.9 - 3.2 [facility] x10(3)/[facility] LABORATORY Monocytes % 3.7 % [facility] LABORATORY Monocyte Abs 0.4 0.3 - 0.9 [facility] x10(3)/[facility] LABORATORY Eosinophils % 0.1 % [facility] LABORATORY Eosinophils Abs 0.0 0.0 - 0.4 [facility] x10(3)/[facility] LABORATORY Basophils % 0.2 % [facility] LABORATORY Basophils Abs 0.0 0.0 - 0.1 [facility] x10(3)/[facility] LABORATORY Immature Gran % 0.60 % [...] Abs 0.06 (H) 0.00 - 0.04 x10(3)/[facility] LABORATORY Specimen Anatomical Collection Method Collection Time Receive d Time (Source) Location / / Volume Laterality Blood specimen 07/05/2017 8:20 PM 017 8:27 (specimen) EST PM EST Resulting Agency Comment Spec In Lab Daphne Shahid MD HEMATOLOGY ORDERABLES Performing Organization Address City/State/[place] [address] (ABNORMAL) Hemogram (07/05/2017 8:20 PM EST) Analysis Performed At Patho logist Time Signature WBC 10.3 (H) 4.0 - 9.5 [facility] x10(3)/[facility] LABORATORY RBC 4.64 4.58 - [facility] RYAN 5.54 [facility] x10(6)/[facility] LABORATORY Hemoglobin 14.1 13.7 - [facility] 16.5 gm/dL [facility] LABORATORY Hematocrit 40.8 40.5 - [place] 48.5 % [facility] LABORATORY MCV 87.9 82.9 - [facility] [address] [facility] LABORATORY MCH 30.4 27.5 - [facility] 32.1 pg [facility] LABORATORY MCHC 34.6 32.0 - [facility] 35.7 gm/dL [facility] LABORATORY Platelets 204 145 - 357 [facility] x10(3)/[facility] LABORATORY RDWSD 46.1 (H) 36.0 - [facility] R[facility]AN 45.0 [facility] RDWCV 14.5 (H) 11.4 - [facility] 13.8 % [facility] LABORATORY MPV 9.7 7.6 - 12.9 [facility] LABORATORY nRBC % Auto 0.0 % [facility] LABORATORY nRBC Abs Auto 0.000 0.000 - [place] ZHAORYAN 0.000 [facility] x10(3)/[facility] LABORATORY Specimen Anatomical Collection Method Collection Time Receive d Time (Source) Location / / Volume Laterality Blood specimen 07/05/2017 8:20 PM 017 8:27 (specimen) EST PM EST Resulting Agency Comment Spec In Lab Daphne Shahid MD HEMATOLOGY ORDERABLES Performing Organization Address City/[facility]/ZIP Code Phon e Number [address] APTT (07/05/2017 8:20 PM EST) P athologist Signature PTT 32 25 - 35 sec [facility] LABORATORY Comment: The recommended therapeutic range for fu ll dose, unfractionated heparin at [facility] [place] is 80 ? 114 seconds. The [...] Shahid MD HEMATOLOGY ORDERABLES Performing Organization Address City/[facility]/ZIP [facility] [place] [address] (ABNORMAL) Cardiac Enzymes (LEB/CGP) (07/05/2017 8:20 PM EST) P athologist Signature Troponin-T 2.11 (H) 0.00 [facility] ng/mL [facility] Comment: The 99th [...] additional sample may be indicated. Reference: Third Dover Definition of Myocardial Infarction. Journal of the [place] College of Cardiology 2012;60:1581-98 CK, Total 149 0 - 200 unit/L [facility] LABORATORY Specimen Anatomical Collection Method Collection Time Receive d Time (Source) Location / / Volume Laterality Blood specimen 07/05/2017 8:20 PM 017 8:27 (specimen) EST PM EST Resulting Agency Comment Spec In Lab Daphne Shahid MD CHEMISTRY ORDERABLES Performing Organization Address City/[facility]/[place] [address] (ABNORMAL) Magnesium (07/05/2017 8:20 PM EST) athologist Signature Magnesium 0.68 (L) 0.69 - 1.07 [facility] mmol/L [facility] LABORATORY Specimen Anatomical Collection Method Collection Time Receive d Time (Source) Location / / Volume Laterality Blood specimen 07/05/2017 8:20 PM 017 8:27 (specimen) EST PM EST Resulting Agency Comment Spec In Lab Daphne Shahid MD CHEMISTRY ORDERABLES Performing Organization Address City/State/[place] [address] (ABNORMAL) Basic Metabolic Panel (non-fasting) (07/05/2017 8:20 PM EST) athologist Signature Glucose Lvl 321 (H) 65 - 199 [facility] mg/dL [facility] LAB[facility]ORY Comment: Diabetes: >=200 [...] MEDICAL CENTER LABORATORY Estimated GFR >60 >=60 [facility] LABORATORY Comment: The reported eGFR should be multiplied b y 1.2 for patients. The MDRD is not an appropriate measure o f renal function for patients with body mass extremes or in patients with acute kidney failure. http://Flash Auto Detailing.Aspen Evian/DHnkdep http://Hunie/DHMCnkf Specimen Anatomical Collection Method Collection Time Receive d Time (Source) Location / / Volume Laterality Blood specimen 07/05/2017 8:20 PM 017 8:27 (specimen) EST PM EST Resulting Agency Comment Spec In Lab Daphne Shahid MD CHEMISTRY ORDERABLES Performing Organization Address City/State/[place] [address] (ABNORMAL) POCT Glucose (07/05/2017 7:32 PM EST) athologist Signature POC Glucose 296 (H) 65 - 199 [facility] mg/dL [facility] Comment: Supplemental ranges: <140 mg/dL before meals <180 mg/dL all other times of the day Specimen Anatomical Collection Method Collection Time Receive d Time (Source) Location / / Volume Laterality Blood specimen 07/05/2017 7:32 PM 017 7:32 (specimen) EST PM EST Daphne Shahid MD POINT OF CARE TEST ORDERABLE S Performing Organization Address City/State/[place] [address] CARDIAC CATHETERIZATION (07/05/2017 6:47 PM EST) Specimen (Source) Anatomical Location Collection Method / Collectio n Time Received Time / Laterality Volume Narrative CARDIOMAC SYSTEM - 07/05/2017 7:27 PM ES T ?[facility] ? Cardiac Cathete rization/Intervention Report ? Patient Name: Natalya, Gregory ? Procedure Date: 07/05/2017 ? A #: [id number] ? Primary Physician: Clarisa, Jet T ? Case #: [id number] ? File Name: [id number] ? Catheterization Order Number: [id number] ? [facility] Support Techn[facility] ? Final Report [place], [place] ? Patient Name: ? Gregory Natalya ?ID#: ?[id number] ? : ?1945 ? Procedure Date: ? [...] presented with: non -STEMI (w/i 7 days). [place] ?Cardiovascular Society angina c lass was IV. [...] graphy and IABP insertion in research laboratory specialist. ? Jet Mckenna, M.D. ? Electronically Signed by: Jet Sampson DeVrizack s, M.D. ? Report Finalized: 07/05/2017 ??19:23 ? Report Last Ammended: 10/26/2017 ??10:29 ? Procedure Note Jet Mckenna MD - 10/26/2017Formatt ing of this note might be different from the original. [facility] Cardiac Catheterization/Intervention Re port Patient Name: Gregory Hoang Procedure Date: 07/05/2017 A #: [id number] Primary Physician: Jet Mckenna Case #: [id number] File Name: [id number] Catheterization Order Number: [id number] [facility] System Support Technician [facility] Final Report [place], [place] Patient Name: Gregory Hoang ID#: [id number] : 1945 Procedure Date: July 05, 2017 Case # : [id number] Room: 6 Case Physician: Jte Mckenna M.D. art: 18:06 Admission: 07/05/2017 Discharge: [...] presented with: non-STEMI ( w/i 7 days). [place] [employer] Society angina class was IV. No [...] y and IABP insertion in research laboratory specialist. Jet Mckenna M.D. Electronically Signed by: Jet [...] Mccollum ? (Age): 1945(72y) Med Rec#: ? [id number] ?Sex: ?M ? Site Loc: ? [facility] ?Ht / Wt: ??173(cm)/86(kg) Pt. Loc: ?[facility] ? BSA: ?2 Study Date: ?? 07/05/2017 ?Pt. Type: Inpatient Tape: ? Referring: Daphne Shahid ([id number]) Referring: MANDA ALCANTAR Reading: Blade Preston ([id number]) Low Voltage Technician: Dayami Paula BA, [facility] Diagnosis: *ICD-10-PCS Non-ST elevation (NSTEMI) m [...] E-wave Vmax ?0.8 ?m/sec ? MV deceleration [id number] ?msec ? MV A-wave Vmax ?0.8 ?m/sec [...] ? Mid-Inferior ?Akinetic ? Mid-Inferoseptal ?Hypokinetic ? [place]inetop-Septal ? Akinetic ? [place]-Anterior ? Hypokinetic ? [place]-Lateral ?Hypokinetic ? [place]-Inferior ? Akinetic ? [place]inetop-Tip ?Akinetic ? This report has been electronically sign ed by: _ Blade Preston MD ? 07/06/2017 08 :53:15 Images reviewed and interpretation [facility] Procedure Note Blade Preston MD - 07/06/2017Formatt ing of this note might be different from the original. Procedure: Transthoracic Echocardiogram Patient: NATALYA MCBRIDE(Age): [birth year]72y) Med Rec#: [id number] Sex: M Site Loc: [facility] [place] [place] Ht / Wt: 173(cm)/86(kg) Pt. Loc: [facility] BSA: 2 Study Date: 07/05/2017 Pt. Type: Inpatie nt Tape: Referring: Daphne Shahid ([id number]) Referring: MANDA ALCANTAR Reading: Blade Preston ([id number]) Low Voltage Technician: Dayami Paula BA, [facility] Diagnosis: *ICD-10-PCS Non-ST elevation (NSTEMI) m [...] MV E-wave Vmax 0.8 m/sec MV deceleration [id number] msec MV A-wave Vmax 0.8 m/sec MV [...] Hypokinetic Mid-Posterolateral Hypokinetic Mid-Inferior Akinetic Mid-Inferoseptal Hypokinetic Pinetop-Septal Akinetic Pinetop-Anterior Hypokinetic [place]inetop-Lateral Hypokinetic Pinetop-Inferior Akinetic Pinetop-Tip Akinetic This report has been electronically sign ed by: _ Blade Preston MD 07/06/2017 08:53:15 Images reviewed and interpretation verif ied [facility] Cardiac Ultrasound Laboratory Daphne Shahid MD ECHO ORDERABLES Performing Organization Address City/State/ZIP Code Phon e Number [facility] Differential, Automated (07/05/2017 4:55 PM EST) P athologist Signature Neutrophils % 77.0 % [facility] LABORATORY Neutr Abs (ANC) 5.26 1.70 - [facility] 6.10 [facility] x10(3)/[facility] LABORATORY Lymphocytes % 13.3 % [facility] LABORATORY Lymphocytes Abs 0.9 0.9 - 3.2 [facility] x10(3)/[facility] LABORATORY Monocytes % 8.2 % [facility] LABORATORY Monocyte Abs 0.6 0.3 - 0.9 [facility] x10(3)/[facility] LABORATORY Eosinophils % 0.7 % [facility] LABORATORY Eosinophils Abs 0.0 0.0 - 0.4 [facility] x10(3)/[facility] LABORATORY Basophils % 0.4 % [facility] LABORATORY Basophils Abs 0.0 0.0 - 0.1 [facility] x10(3)/[facility] LABORATORY Immature Gran % 0.40 % [facility] [...] 0.04 x10(3)/[facility] LABORATORY Specimen Anatomical Collection Method Collection Time Receive d Time (Source) Location / / Volume Laterality Blood specimen 07/05/2017 4:55 PM 017 5:24 (specimen) EST PM EST Resulting Agency Comment Spec In Lab Daphne Shahid MD HEMATOLOGY ORDERABLES Performing Organization Address City/State/[place] [address] (ABNORMAL) Hemogram (07/05/2017 4:55 PM EST) Analysis Performed At Patho logist Time Signature WBC 6.8 4.0 - 9.5 [facility] x10(3)/[facility] LABORATORY RBC 4.67 4.58 - [facility] 5.54 [facility] x10(6)/[facility] LABORATORY Hemoglobin 14.0 13.7 - [facility] 16.[facility] gm/dL [facility]ORY Hematocrit 41.0 40.5 - [facility] 48.5 % [facility] LAB[facility]ATORY MCV 87.8 82.9 - [facility] [address] [facility] LABORATORY MCH 30.0 27.5 - [facility] 32.1 pg [facility] LABORATORY MCHC 34.1 32.0 - [facility] 35.7 gm/dL [facility] LABORATORY Platelets 197 145 - 357 [facility] x10(3)/[facility] LABORATORY RDWSD 46.4 (H) 36.0 - [facility] LABORATORY RDWCV 14.5 (H) 11.4 - [facility] 13.8 % [facility] LABORATORY MPV 9.7 7.6 - 12.9 [facility] LABORATORY nRBC % Auto 0.0 % [facility] LABORATORY nRBC Abs Auto 0.000 0.000 - [facility] 0.000 [facility] x10(3)/[facility] LABORATORY Specimen Anatomical Collection Method Collection Time Receive d Time (Source) Location / / Volume Laterality Blood specimen 07/05/2017 4:55 PM 017 5:24 (specimen) EST PM EST Resulting Agency Comment Spec In Lab Daphne Shahid MD HEMATOLOGY ORDERABLES Performing Organization Address City/[facility]/[place] [address] (ABNORMAL) Cardiac Enzymes (LEB/CGP) (07/05/2017 4:55 PM EST) athologist Signature Troponin-T 1.69 (H) 0.00 - [facility] 0[facility] ng/mL [facility] Comment: The 99th [...] additional sample may be indicated. Reference: Third Dover Definition of Myocardial Infarction. Journal of the [place] College of Cardiology 2012;60:1581-98 CK, Total 191 0 - 200 unit/L [facility] LABORATORY Specimen Anatomical Collection Method Collection Time Receive d Time (Source) Location / / Volume Laterality Blood specimen 07/05/2017 4:55 PM 017 5:56 (specimen) EST PM EST Resulting Agency Comment Spec In Lab Daphne Shahid MD CHEMISTRY ORDERABLES Performing Organization Address City/[facility]/[place] [address] (ABNORMAL) pro-Brain Natriuretic Peptide (07/05/2017 4:55 PM EST) athologist Signature ProBNP 1,598 (H) <=125 [facility] pg/mL [facility] LABORATORY Specimen Anatomical Collection Method Collection Time Receive d Time (Source) Location / / Volume Laterality Blood specimen 07/05/2017 4:55 PM 017 5:24 (specimen) EST PM EST Resulting Agency Comment Spec In Lab Daphne Shahid MD CHEMISTRY ORDERABLES Performing Organization Address City/[facility]/ZIP Code Phon e Number [address] Magnesium (07/05/2017 4:55 PM EST) athologist [facility] Magnesium 0.78 0.69 - 1.07 [facility] mmol/L [facility] LABORATORY Specimen Anatomical Collection Method Collection Time Receive d Time (Source) Location / / Volume Laterality Blood specimen 07/05/2017 4:55 PM 017 5:24 (specimen) EST PM EST Resulting Agency Comment Spec In Lab Daphne Shahid MD CHEMISTRY ORDERABLES Performing Organization Address City/[facility]/ZIP Code Phon e Number [address] (ABNORMAL) Basic Metabolic Panel (non-fasting) (07/05/2017 4:55 PM EST) athologist [facility] Glucose Lvl 230 (H) 65 - 199 [facility] mg/dL [facility] LABORATORY Comment: Diabetes: >=200 [...] MEDICAL CENTER LABORATORY Estimated GFR >60 >=60 [facility] LABORATORY Comment: The reported eGFR should be multiplied b y 1.2 for patients. The MDRD is not an appropriate measure o f renal function for patients with body mass extremes or in patients with acute kidney failure. http://Hunie/DHnkdep http://Hunie/DHMCnkf Specimen Anatomical Collection Method Collection Time Receive d Time (Source) Location / / Volume Laterality Blood specimen 07/05/2017 4:55 PM 017 5:24 (specimen) EST PM EST Resulting Agency Comment Spec In Lab Daphne Shahid MD CHEMISTRY ORDERABLES Performing Organization Address City/[facility]/[place] [address] (ABNORMAL) APTT (07/05/2017 4:55 PM EST) P athologist Signature PTT 41 (H) 25 - 35 sec [facility] LABORATORY Comment: The recommended therapeutic range for fu ll dose, unfractionated heparin at [facility] [place] [place] is 80 ? 114 seconds. The [...] Shahid MD HEMATOLOGY ORDERABLES Performing Organization Address City/[facility]/[place] [address] (ABNORMAL) POCT Glucose (07/05/2017 4:53 PM EST) P athologist Signature POC Glucose 208 (H) 65 - 199 [facility] mg/dL [facility] LAB[facility] Comment: Supplemental ranges: <140 mg/dL before meals <180 mg/dL all other times of the day Specimen Anatomical Collection Method Collection Time Receive d Time (Source) Location / / Volume Laterality Blood specimen 07/05/2017 4:53 PM 017 4:53 (specimen) EST PM EST Daphne Shahid MD POINT OF CARE TEST ORDERABLE S Performing Organization Address City/State/[place] [address] EKG 12 Lead (07/05/2017 4:32 PM EST) Component Value Ref Range Test Analysis Performed Pathologis t Method Time At Signature Ventricular rate 97 BPM MUSE SYSTEM Atrial Rate 97 BPM MUSE SYSTEM P-R Interval 148 ms MUSE SYSTEM QRS Duration 96 ms MUSE SYSTEM Q-T Interval 364 ms MUSE SYSTEM QTC Calculated 462 ms MUSE SYSTEM (Bezet) Calculated P [place] 48 degrees MUSE SYSTEM Calculated R [place] -33 degrees MUSE SYSTEM Calculated T [place] 98 degrees MUSE SYSTEM INTERPRETATION Normal sinus [...] post-op day 1 in the AM Give RI if unable to take PO, Routine Given [...] post-op day 1 in the AM Give RI if unable to take PO, Routine atorvastatin [...] 175 mcg 0521 (Given - Provider: Carmen Beryr RN) 0615 (Given - Provider: Ale Rangel, [...] post-op day 1 in the AM Give RI if unable to take PO
Routine Group [...]
Routine documented in this encounter Care Teams Automobile Club Information Clerk Relationship Specialty Start Date End Date Lovely Vicente MD PCP - General 04/16/[address] [place] [address] documented as of this encounter
--- OUTSIDE RECORDS SUMMARY | 2022-03-09 15:32 | XMS_ITS | Encounter Summary ---
:1945 [place] [address] Care Team Providers Name Role Phone Lovely Vicente MD Primary Care Provider Reason for Visit Auth/Cert Specialty Diagnoses / Procedures Referred By Contact Refer red To Contact Diagnoses STEMI (ST elevation myocardial infarction) NSTEMI STEMI Procedures CARDIAC CATHETERIZATION NAYE IPI Referral ID Status Reason Start Date Expiration Date Visits Requ ested Visits Authorized [id number] 1 1 Encounter Details Date Type Department Care Team Description 07/07/2017 Anesthesia Event Main Operating Room Yifan Jaime MD [facility] [place] [address] [facility] Ginny Murray MD [facility] DR ANESTHESIOLOG[place] [address] [facility] [place] [address] Anesthesia Record Procedure Summary Procedure Name [...] 2342 LDA Cath/EP Sheath 07/05/17; 0606; 8 Norwegian 07/05/17 0606 by [id number] by (Fr); Right; Femoral [place], Yane Cook, RN PIV 07/05/17; 1720; median 07/05/17 1720 by 07/11/17 2355 by vein (underside of arm), Prior, Yanet Maza, VAMSI Crum, Angela Gomes, left; 18 gauge; removed VALVE TESTER per policy/procedure; 07/11/17; 2355 Intra-Aortic Balloon 07/05/17; [...] 07/09/17 0556 by Adjunct (2) (OA); ETT iGnny Murray MD Miller, Carrie L, Type: Cuffed; ETT Size: SHAREPOINT TRAINER 8 mm; Santiago Blade: 2; Notes: Asleep, [...] Murray MD - 07/08/2017 5:08 PM EST [facility] Department of Anesthesiology Post-procedure Note Patient: Don Fatima Procedure Summary Date Anesthesia Start Anesthesia Stop Room / Location 07/07/17 1335 1836 [facility] OR [facility] MAIN OR Procedure Diagnosis Surgeon Responsible Provider @CABG, USING ARTERIAL GRAFT;SINGLE ARTERIAL GRAFT (WRVU 33.75) (N/A Chest); @CABG, TWO VENOUS GRAFTS & ARTERIAL GRAFT (WRVU 7.93) (N/A Chest); ENDOSCOPIC HARVEST VEIN(S) FOR CABG (WRVU 0.31) (Right Leg) (CAD) Yuan Freitas MD Hartman, Gregg S, MD All Anesthesia Providers: Anesthesiologist: Yifan Perez MD Mold Car Pusher: Ginny Murray MD Most Recent Vitals: 07/08/17 [...] at [facility] ENDOSCOPY ??? PRO THYROIDECTOMY 03/28/2013 [...] Nobles MD [facility] ER DR [address] [place], [place] [address] (Wo rk) 06/10/2022 Office Visit Dermatology Laura Scherer MD [facility] DR TEJA GR-DERMAT OGY [place], [place] [address] (Wo rk) documented as [...] mg documented in this encounter Care Teams Nut Sifter Relationship Specialty Start Date End Date Lovely Vicente MD PCP - General 04/16/[address] [place] [address] documented as of this encounter
--- OUTSIDE RECORDS SUMMARY | 2022-03-09 15:33 | XMS_ITS | Encounter Summary ---
:1945 Author Organization [facility] [place] [address] Care Team Providers Name Role Phone Lovely Vicente MD Primary Care Provider Encounter Details Date Type Department Care Team Description 09/03/2016 Laboratory Appointment Lab at [facility] Hx of papillary [facility] [place] [id number] Social History Tobacco Use Types Packs/Day Years [...] Visit Cardiology Vitaliy Nobles MD [facility] ER [address] [place], [place] [address] (Wo rk) 06/10/2022 Office Visit Dermatology Laura Scherer MD [facility] ER DR TEJA GR-DERMAT [place], [place] [address] (Wo rk) documented as [...] EST) P athologist Signature Thyroglobulin <0.4 <=54.9 [facility] ng/mL [facility] LABORATORY Comment: Interpret with caution. [...] BR et al. J Clin Endo Metab 1999;84:8862-1562). Assay performed using the DPC Immulite T [...] Organization Address City/State/[place] [address] TSH (09/03/2016 11:07 AM EST) P athologist Signature TSH 3.01 0.27 - 4.20 KATALINA DAVIS mcIU/mL [facility] LABORATORY Specimen Anatomical Collection Method Collection Time Receive d Time (Source) Location / / Volume Laterality Blood specimen 09/03/2016 11:07 7 (specimen) AM EST 11:22 AM EST Resulting Agency Comment Spec In Lab Luz Prescott MD CHEMISTRY ORDERABLES Performing Organization Address City/State/[place] [address] documented in this encounter Visit Diagnoses Diagnosis Hx of papillary thyroid carcinoma Personal history of malignant neoplasm o f thyroid documented in this encounter Care Teams Hose Sprayer Relationship Specialty Start Date End Date Lovely Vicente MD PCP - General 04/16/[address] [place] [address] documented as of this encounter
--- OUTSIDE RECORDS SUMMARY | 2022-03-09 15:33 | XMS_ITS | Encounter Summary ---
:1945 Author Organization [facility] [place] [address] Care Team Providers Name Role Phone Lovely Vicente MD Primary Care Provider Reason for Visit Reason Onset Date Comments Medication Refill 06/19/2016 Encounter Details Date Type Department Care Team Description 06/19/2016 Refill Endocrinology at [facility] Luz Stallings MD [facility] [place] [address] ENDOCRINOLOGY DEPT [phone] [place], [place] [address] (Wo rk) Social History [...] Nobles MD [facility] [address] [place], [place] [address] (Wo rk) 06/10/2022 Office Visit Dermatology Laura Scherer MD [facility] DR TEJA GR-DERMAT OLOGY [place], [place] [address] (Wo rk) documented as of this encounter Visit Diagnoses Not on filedocumented in this encounter Care Teams Film Reproducer Relationship Specialty Start Date End Date Lovely Vicente MD PCP - General 04/16/[address] [place] [address] documented as of this encounter
--- OUTSIDE RECORDS SUMMARY | 2022-03-09 15:33 | XMS_ITS | Encounter Summary ---
:1945 [place] [address] Care Team Providers Name Role Phone Lovely Vicente MD Primary Care Provider Reason for Visit Reason Onset Date Comments Other 12/09/2016 RESULTS Encounter Details Date Type Department Care Team Description 12/09/2016 Telephone Dermatology at [facility] Halima Cadet MD Other (RESULTS) [address] [facility] [place] [address] [facility] [phone] [place], [place] [address] (Wo rk) Social History Tobacco [...] with patient's , Kisha (personal sales representative rural power). I advised her Don's pathology results are [...] back. She can be reached back at [phone] documented in this encounter Plan of Treatment Upcoming Encounters Date Type Specialty Care Team Description 03/26/2022 Office Visit Cardiology Vitaliy Nobles MD [facility] [address] [place], [place] [address] (Wo rk) 06/10/2022 Office Visit Dermatology Laura Scherer MD [facility] DR [address]DERMAT [facility] [place] [place] [address] (Wo rk) documented as of this encounter Visit Diagnoses Not on filedocumented in this encounter Care Teams Mental Health Director Relationship Specialty Start Date End Date Lovely Vicente MD PCP - General 04/16/[address] [place] [address] documented as of this encounter
--- OUTSIDE RECORDS SUMMARY | 2022-03-09 15:33 | XMS_ITS | Encounter Summary ---
:1945 Author Organization [facility] [place] [address] Care Team Providers Name Role Phone Lovely Vicente MD Primary Care Provider Reason for Visit Reason Comments Skin Lesion Encounter Details Date Type Department Care Team Description 11/24/2016 [facility] behavior [facility] skin; Road IIIMD Pigmented skin lesion of uncertain natur e; [address] [facility] [place] of [place] [address] [facility] SIMÓN-DERMATOLGY [place], [place] [address] Social History Tobacco Use Types [...] or concerns, please call the office at [phone]. If it is after 5PM, or a holiday or weekend, please call [phone] and ask for the Automatic Centrifugal Station Operator on-call. documented in this encounter Progress [...] 71 y.o. year old male.Established patient of [facility]. Last seen 06/05/16. Here today for new [...] encounter. Rigoberto Garcia MD Section of Dermatology [facility] documented in this encounter Plan of Treatment Upcoming Encounters Date Type Specialty Care Team Description 03/26/2022 Office Visit Cardiology Vitaliy Nobles MD [facility] [address] TADE[address] [place], [place] [address] (Wo lissa) 06/10/2022 Office Visit Dermatology Laura Scherer MD [facility] DR TEJA [address]-DERMAT [place], [place] [address] (Wo lissa) documented as of [...] Test Analysis Performed At [facility] Range Method Time Signature Surgical [id number] ?Location: [facility] Report The signing pathologist [...] Organization Address City/State/[place] [address] Specimen to Pathology (NON-OR) (11/24/2016 8:28 AM EDT) Specimen Anatomical Collection Method Collection Time Receive d Time (Source) Location / / Volume Laterality AP Specimen 11/24/2016 8:28 AM 7 9:29 EDT [address] [facility] - 11/24/2016 9:29 AM EDT Specimen requisition ordered. ??Separate Pathology report to follow Resulting Agency Comment Spec In Lab Rigoberto Garcia III, MD PATHOLOGY/CYTOLOGY ORDERABLE S Performing Organization Address City/State/[place] [address] documented in this encounter Visit Diagnoses Diagnosis Neoplasm of uncertain behavior of skin Pigmented skin lesion of uncertain natur e History of melanoma Personal history of malignant melanoma o f skin documented in this encounter Care Teams Director Supply Chain Relationship Specialty Start Date End Date Lovely Vicente MD PCP - General 04/16/[address] [place] [address] documented as of this encounter
--- OUTSIDE RECORDS SUMMARY | 2022-03-09 15:33 | XMS_ITS | Encounter Summary ---
:1945 Author Organization [facility] [place] [address] Care Team Providers Name Role Phone Lovley Vicente MD Primary Care Provider Encounter Details Date Type Department Care Team Description 11/28/2016 Telephone Dermatology at [facility] Rigoberto Garcia III, [address] [place] [address] [facility] [phone] [facility] SIMÓN-DERMAT [place], [place] [address] (Wo rk) Social History [...] provider. Rigoberto Garcia MD Section of Dermatology [facility] documented in this encounter Plan of Treatment Upcoming Encounters Date Type Specialty Care Team Description 03/26/2022 Office Visit Cardiology Vitaliy Nobles MD [facility] [address] [place], [place] [address] (Wo rk) 06/10/2022 Office Visit Dermatology Laura Scherer MD [facility] DR TEJA MARIE-DERMAT [place], [place] [address] (Wo rk) documented as of this encounter Visit Diagnoses Not on filedocumented in this encounter Care Teams Hspt Tutor Relationship Specialty Start Date End Date Lovely Vicente MD PCP - General 04/16/[address] [place] [address] [address] [place] [address] documented as of this encounter
--- OUTSIDE RECORDS SUMMARY | 2022-03-09 15:33 | XMS_ITS | Encounter Summary ---
:1945 Author Organization [place] [address] Care Team Providers Name Role Phone Lovely Vicente MD Primary Care Provider Reason for Visit Reason Comments Nevus excision dysplastic nevus mi d upper abdomen Encounter Details Date Type Department Care Team Description 12/03/2016 Procedure visit Dermatology at [facility] Dysplastic nevus of Road MD Adrián trunk [address] [facility] [address] [facility] [phone] [address] [place] [address] Social History Tobacco Use Types Packs/Day Years [...] Halima Cordero MD during the day at [phone] Nurse: Mira [phone] Amy After 5 PM and on weekends, please call the hospital number , and ask for the Oracle Developer customer solutions teammate. documented in this encounter Progress Notes Halima Cordero MD - 12/10/2016 5:41 PM EDT Gwendolyn, Excision shows scar, there is no residual of the severely dysplastic nevus. Please notify patient and check on wound healing. Thank you, DTB Halima Cordero MD - 12/03/2016 3:00 PM EDT Images from the original note were not included. Dermatology Procedure note: Attending: Halima Cordero MD Sound Art Instructor: Mira James LPN Referring MD: Rigoberto Garcia [...] to call the clinic or the on-call behavior therapist over the weekend. ??? Name of Procedure? [...] MD [facility] [address] T[address] [place], [place] [address] (Wo rk) 06/10/2022 Office Visit Dermatology Laura Scherer MD [facility] DR [address]-DERMAT [place], [place] [address] (Wo rk) documented as [...] Component Value Ref Test Analysis Performed At [facility] Method Time Signature Surgical [id number] ?Location: [facility] Report The signing pathologist has (i) [...] Clinical Diagnosis: Dysplastic nevus, see previous pathology [id number] SPECIMEN PROCESSING A - Labeled/Fixative: Mid-upper abdomen, [...] MD PATHOLOGY/CYTOLOGY ORDERABLE S Performing Organization Address City/[facility]/[place] [address] Specimen to Pathology (NON-OR) (12/03/2016 3:31 PM EDT) Specimen Anatomical Collection Method Collection Time Receive d Time (Source) Location / / Volume Laterality AP Specimen 12/03/2016 3:31 PM 7 6:27 EDT PM EDT Narrative [facility] - 12/03/2016 6:27 PM EDT Specimen requisition ordered. ??Separate Pathology report to follow Resulting Agency Comment Spec In Lab Halima Cordero MD PATHOLOGY/CYTOLOGY ORDERABLE S Performing Organization Address City/State/[place] [address] documented in this encounter Visit Diagnoses Diagnosis Dysplastic nevus of trunk Benign neoplasm of skin of trunk, except scrotum documented in this encounter Care Teams Director Online Marketing Relationship Specialty Start Date End Date Lovely Vicente MD PCP - General 04/16/[address] [place] [address] documented as of this encounter
--- OUTSIDE RECORDS SUMMARY | 2022-03-09 15:33 | XMS_ITS | Encounter Summary ---
:1945 Author Organization [facility] [place] [address] Care Team Providers Name Role Phone Lovely Vicente MD Primary Care Provider Reason for Visit Reason Onset Date Comments Medication Refill 12/24/2016 Encounter Details Date Type Department Care Team Description 12/24/2016 Refill Endocrinology at [facility] Luz Stallings MD [facility] [place] [address] ENDOCRINOLOGY DEPT [phone] [place], [place] [address] (Wo rk) Social History Tobacco [...] MD [facility] [address] TADE[address] [place], [place] [address] (Wo rk) 06/10/2022 Office Visit Dermatology Laura Scherer MD [facility] DR TEJA GR-DERMAT [place]LOG[place], [place] [address] (Wo rk) documented as of this encounter Visit Diagnoses Not on filedocumented in this encounter Care Teams Operations Label Clerk Relationship Specialty Start Date End Date Lovely Vicente MD PCP - General 04/16/[address] [place] [address] documented as of this encounter
--- OUTSIDE RECORDS SUMMARY | 2022-03-09 15:33 | XMS_ITS | Encounter Summary ---
:1945 Author Organization [facility] [place] [address] Care Team Providers Name Role Phone Lovely Vicente MD Primary Care Provider Reason for Visit Reason Onset Date Comments Pre Procedure Call 12/02/2016 Encounter Details Date Type Department Care Team Description 12/02/[address] [facility] Mira James LPN Pre Procedure Call [address] [place] [address] Social History Tobacco Use Types Packs/Day [...] Nobles MD [facility] [address] TADE[address] [place], [place] [address] (Wo rk) 06/10/2022 Office Visit Dermatology Laura Scherer MD [facility] DR [address] [place], [place] [address] (Wo rk) documented as of this encounter Visit Diagnoses Not on filedocumented in this encounter Care Teams Wood Patternmaker Relationship Specialty Start Date End Date Lovely Vicente MD PCP - General 04/16/[address] [place] [address] documented as of this encounter
--- OUTSIDE RECORDS SUMMARY | 2022-03-09 15:33 | XMS_ITS | Encounter Summary ---
:1945 Author Organization [facility] [place] [address] Care Team Providers Name Role Phone Lovely Vicente MD Primary Care Provider Reason for Visit Reason Comments Follow-up Encounter Details Date Type Department Care Team Description 06/03/2017 Office Visit Dermatology at Rigoberto Forman benign nevi; Abdelrahman HOOPER MD History of melanoma; [address] [facility] History of dysplastic nevus; [place] [address] Skin exam for malignant neoplasm [phone] [facility] [place], [place] [address] Social History Tobacco Use Types [...] encounter. Rigoberto Garcia MD Section of Dermatology [facility] documented in this encounter Plan of Treatment Upcoming Encounters Date Type Specialty Care Team Description 03/26/2022 Office Visit Cardiology Vitaliy Nobles MD [facility] MEDICAL [facility] ER [address] TADEO [place], [place] [address] (Wo rk) 06/10/2022 Office Visit Dermatology Laura Scherer MD [facility] DR TEJA GR-DERMAT [place], [place] [...] skin documented in this encounter Care Teams Web Graphic Designer Relationship Specialty Start Date End Date Lovely Vicente MD PCP - General 04/16/[address] [place] [address] documented as of this encounter
--- OUTSIDE RECORDS SUMMARY | 2022-03-09 15:33 | XMS_ITS | Encounter Summary ---
:1945 Author Organization [facility] [place] [address] Care Team Providers Name Role Phone Lovely Vicente MD Primary Care Provider Encounter Details Date Type Department Care Team Description 07/05/2017 Telephone Cardiology Kim Galindo [place] [place] [address] CARDIOLOGY DEPT [phone] [place], [place] [address] (Wo rk) Social History Tobacco [...] infarct and elevated troponin, transport patient to [facility] for cath this afternoon and arrhythmia monitoring. Kim Galindo MD Psychology Professor documented in this encounter Plan of Treatment Upcoming Encounters Date Type Specialty Care Team Description 03/26/2022 Office Visit Cardiology Vitaliy Nobles MD [facility] [address] [place], [place] [address] (Wo rk) 06/10/2022 Office Visit Dermatology Laura Scherer MD [facility] DR [address] [place], [place] [address] (Wo rk) documented as of this encounter Visit Diagnoses Not on filedocumented in this encounter Care Teams Electrical Drafter Relationship Specialty Start Date End Date Lovely Vicente MD PCP - General 04/16/[address] [place] [address] documented as of this encounter
--- OUTSIDE RECORDS SUMMARY | 2022-03-09 15:33 | XMS_ITS | Encounter Summary ---
:1945 [place] [address] Care Team Providers Name Role Phone Lovely Vicente MD Primary Care Provider Reason for Visit Auth/Cert Specialty Diagnoses / Procedures Referred By Contact Refer red To Contact Diagnoses STEMI (ST elevation myocardial infarction) NSTEMI STEMI Procedures CARDIAC CATHETERIZATION NAYE IPI Referral ID Status Reason Start Date Expiration Date Visits Requ ested Visits Authorized [id number] 1 1 Encounter Details Date Type Department Care Team Description 07/05/2017 Surgery Steel Pickler Jet Guan, CARDIAC CATHETERIZATION [facility] [place] [address] CARDIOLOGY DEPT. [phone] [place], [place] [address] (Wo rk) Social History Tobacco [...] this encounter Discharge Summaries Martha Teague S, BULB TESTER - 07/14/2017 9:38 AM EST Inpatient - Discharge Summary Patient Name: Gregory Hoang Patient Age: 72 y.o. Birthdate: 1945 Language: Comoran Race: White Ethnicity: Not nor Admit Date: [...] , @ 1:20p Patient to follow-up with Tobacco Hanger/heart failure team in one week. An appointment will be made for you. You may call [phone] Patient to follow-up with Cardiac Surgery, Dr. Yuan Webber, in ~ 4 weeks with CXR, EKG. Inpatient Provider Contact Information: [facility] Section of Cardiac Surgery [facility] [address] FAX [phone] Discharge Diagnoses (Hospital Problems) Primary Diagnoses: CAD [...] SETUP performed by Manny Mcknight MD at [facility] OR ??? PRO CABG, ARTERIAL, SINGLE N/A 07/07/2017 @CABG, USING ARTERIAL GRAFT;SINGLE ARTERIAL GRAFT (WRVU 33.75) performed by Yuan Webber MD at [facility] OR ??? PRO CABG, ARTERY-VEIN, TWO N/A 07/07/2017 @CABG, TWO VENOUS GRAFTS & ARTERIAL GRAFT (WRVU 7.93) performed by Yuan Webber MD at [facility] OR ??? PRO COLONOSCOPY, REMV LESN, SNARE 01/16/2014 COLONOSCOPY, POLYPECTOMY, REMOVAL LESION BY SNARE performed by Nohemi Jaimes MD at [facility] ENDOSCOPY ??? PRO ENDOSCOPY W/VIDEO-ASST VEIN HARVEST, CABG Right 07/07/2017 ENDOSCOPIC HARVEST VEIN(S) FOR CABG (WRVU 0.31) performed by Yuan Webber MD at [facility] OR ??? PRO THYROIDECTOMY 03/28/2013 THYROIDECTOMY, TOTAL OR COMPLETE performed by Manny Mcknight MD at [facility] OR Prior To Admission Medications Prescriptions Prior to Admission Medication Sig Dispense Refill Last Dose ??? levothyroxine (SYNTHROID) 175 mcg Tablet Take 1 tablet by mouth daily. 90 tablet 3 07/05/2017 [id number] ??? ascorbic acid, vitamin C, (VITAMIN C) [...] hospital and ruled infor non-ST segment elevation NC. This almost certainly represents the residual of [...] Hospital Course: Gregory Hoang was admitted to [facility] on 07/05/2017 via the Cardiology Service. During his hospital course, he was taken emergently to the medical lab director for an ongoing STEMI. An IABP was [...] not take or discontinue any prescription or pron-dyn-eexynaq medications without asking your doctor or pharmacist [...] day to have your insulin doses adjusted. [facility] Endocrine clinic office Discharge Instructions: Call your doctor if: You have a fever of greater than 101 degrees, shaking chills, if you develop redness or drainage from your incision sites, or if you have questions. Please call your surgeon's office if you have any discharge or drainage from your chest incision. Your surgeon, Dr. Yuan Webber and/or the Cardiac Surgery Physician Regulatory Affairs Associate Team may be reached at . Weight: [...] Dr. Yuan Webber. You may use a [place] Track or treadmill but avoid any pulling [...] friends, go to a movie, go to amish, etc. Heavy activities: No hunting, skiing, jogging, snow shoveling, snowmobiling, lawn mowing, swimming, golf or tennis until after your return appointment with the surgeon. Do not ride motorcycles, [employer] tractors or horses. Avoid the use of [...] , @ 1:20p Patient to follow-up with Tobacco Hanger/heart failure team in one week. Appointment will be made for you. You may call [phone] Patient to follow-up with Cardiac Surgery, Dr. Yuan Webber, in ~ 4 weeks with CXR, EKG. Cardiac Rehabilitation: Gregory Hoang was seen today regarding participation in the outpatient Phase 2 Cardiac Rehabilitation at [facility]. The patient agrees to a referral to this program. The referral will be sent at discharge and the patient should be contacted by the Program within 1- 2 weeks from discharge. ?? Future Appointments and Orders Future Appointments Provider Department Dept Phone 09/07/2017 3:00 PM LAB, [facility] L Lab 3L [facility] [phone] 09/07/2017 4:00 PM Luz Prescott MD Endocrinology at [facility] [phone] Future Orders Complete By Expires EKG 12 Lead [EKG1 Custom] 08/14/2017 02/13/2018 Process Instructions: Scheduling Instructions: Questions: Which DH location will this be performed?: [facility] Is a rhythm strip needed?: No If EKG Reason is Pre-op Evaluation, indicate diagnosis for surgery.: XR Chest PA & Lateral (Generic) [[id number] Custom] 08/14/2017 02/13/2018 Process Instructions: Scheduling Instructions: Questions: Where will study be performed?: [facility] Portable exam?: Reason for exam and clinical history: CABG x 3 Other pertinent information: Stat read required?: Date of injury if applicable: Requested Time: Referral to Cardiac Rehab [HDB497 Custom] As directed Process Instructions: If no progress note charted, please enter Clinical details in comments. Scheduling Instructions: Questions: My question or request is: s/p CABG. Cardiac rehab at [facility] Referral to Home Health - at DISCHARGE [GOY0966 CPT(R)] As directed Process Instructions: Scheduling Instructions: Comments: DOCUMENTATION FOR VNA SERVICES (INCLUDING THOSE PATIENTS WITH MEDICARE COVERAGE REQUIRING HOME VNA SERVICES AND/OR HOSPICE SERVICES) PATIENT'S LOCATION: Gregory Hoang [address] [place] [address] [place] [address] (home) Telephone Information: Scrap Burner's Name: self In discussion with the attending physician, it is certified that this patient is under their care and that they, or a Nurse Practitioner, or Physician Regulatory Affairs Associate who is working directly with them, had [...] HEALTH AGENCY: [facility] ([facility] [place] [facility] in [place], [place] PHONE: [phone] FAX: [phone] RN orders: Cardiopulmonary assessment, incisional assessment, assess vital signs, assessment of rehab progress, medication management and effectiveness, home safety evaluation. Please draw INR if indicated and send result to:Dr Vicente [phone] PT ORDERS: Continue rehab for endurance, gait stability and strength with mobility and transfers. Home safety evaluation. Home exercise program if appropriate. Start of Care Date:24-48 hours after discharge SPECIAL INSTRUCTIONS: For any follow up questions, needs, or issues please call the Cardiac Surgery Office at [phone] FOR MEDICARE ONLY: (please delete this section [...] OR AFTER 07/17/2017 Signed: Martha Teague APRN [facility] Section of Cardiac Surgery [facility] [address] FAX [phone] Date: 07/14/2017 CC: MD Ivania Cr Betsy, PA [address] [place] [phone] documented in this encounter Discharge Instructions Discharge [...] day to have your insulin doses adjusted. [facility] Endocrine clinic office Patient InstructionsStMartha mcdonald APRN [...] not take or discontinue any prescription or ulox-mmx-bibzyan medications without asking your doctor or pharmacist [...] day to have your insulin doses adjusted. [facility] Endocrine clinic office ? Discharge Instructions: ?? Call your doctor if: You have a fever of greater than 101 degrees, shaking chills, if you develop redness or drainage from your incision sites, or if you have questions. Please call your surgeon's office if you have any discharge or drainage from your chest incision. Your surgeon, Dr. Yuan Webber and/or the Cardiac Surgery Physician Regulatory Affairs Associate Team may be reached at . ?? [...] Dr. Yuan Webber. You may use a [place] Track or treadmill but avoid any pulling [...] friends, go to a movie, go to amish, etc. ?? Heavy activities: No hunting, skiing, jogging, snow shoveling, snowmobiling, lawn mowing, swimming, golf or tennis until after your return appointment with the surgeon. Do not ride motorcycles, [employer] tractors or horses. Avoid the use of [...] @ 1:20p ?? Patient to follow-up with Tobacco Hanger/heart failure team in one week. An appointment has been made for you, you can call [phone] ?? Patient to follow-up with Cardiac Surgery, Dr. Yuan Webber, in ~ 4 weeks with CXR, EKG. ? Cardiac Rehabilitation: Gregory Hoang??was seen today regarding participation in the outpatient Phase 2 Cardiac Rehabilitation at [facility]. ?? The patient agrees to a referral to this program.? The referral will be sent at discharge and the patient should be contacted by the Program within 1- 2 weeks from discharge. ? Future Appointments and Orders Future Appointments Provider Department Dept Phone ?? 09/07/2017 3:00 PM LAB, THREE L Lab 3L [facility] [phone] ?? 09/07/2017 4:00 PM Luz Prescott MD Endocrinology at [facility] [phone] Future Orders Complete By Expires ?? EKG 12 Lead [EKG1 Custom] 08/14/2017 02/13/2018 ?? Process Instructions: ? Scheduling Instructions: ? Questions: ? Which location will this be performed?: [facility] ?? Is a rhythm strip needed?: No ?? If EKG Reason is Pre-op Evaluation, indicate diagnosis for surgery.: ?? XR Chest PA & Lateral (Generic) [[id number] Custom] 08/14/2017 02/13/2018 ?? Process Instructions: ? Scheduling Instructions: ? Questions: ? Where will study be performed?: [facility] ?? Portable exam?: ?? Reason for exam and clinical history: CABG x 3 ?? Other pertinent information: ?? Stat read required?: ?? Date of injury if applicable: ?? Requested Time: ?? Referral to Cardiac Rehab [MMU209 Custom] As directed ? Process Instructions: ?? If no progress note charted, please enter Clinical details in comments. ?? Scheduling Instructions: ? Questions: ? My question or request is: s/p CABG. Cardiac rehab at [facility] ? Arrangements for VNA/home care: As [...] - 07/14/2017 2:34 PM EST The patient/sales promotion representative has been provided a list of Home Health Agencies/DME vendors which serve their preferred geographic area. A letter describing our affiliations was reviewed with them and theywere educated about their right to choose where referrals are placed. Patient requests referral to [facility] [employer]. PHONE: [phone] FAX: [phone] Expected date of discharge: 07/14 Referral routed to the Certified Neurodiagnostic Technologist for matching with agency/vendor and to provide any required information. Kathie Bekcman APRN - 07/14/2017 11:13 AM EST Images [...] day to have your insulin doses adjusted. [facility] Endocrine clinic office Kathie Carrera APRN [facility] Endocrinology Diabetes Management Pager [phone] 20 minutes of this 35 minute visit was spent with the patient in counseling on diabetes and treatment plan, reviewing all glucose and insulin data as well as relevant laboratory results with the patient, and coordination of care on the inpatient unit including nursing and primary team. Zulma Andres RN - 07/14/2017 10:30 AM EST The patient/sales promotion representative has been provided a list of Home Health Agencies/DME vendors which serve their preferred geographic area. A letter describing our affiliations was reviewed with them and theywere educated about their right to choose where referrals are placed. Patient requests referral to : [facility] ([facility] [place] [facility]-is in [place]) PHONE: [phone] FAX: [phone]. Expected date of discharge: 07/14/17 Referral routed to the Certified Neurodiagnostic Technologist for matching with agency/vendor and to provide [...] #6 s/p CABG X3. FSBG [address], reports no symptoms but did drink some [...] Will continue to follow Katerin Azul APRN [facility] Endocrinology Diabetes Management Pager [phone] 15 minutes of this 25 minute visit [...] of infiltration/extravasation Discussed plan of care with OUTSIDE INSTALLATION MACHINIST and RN. Elevate exrtemity and apply intermittent Warm compresses. Name of MD contacted Dr. Shaw Brown 07/13/2017 @ 0655 Name of RN contacted Ale Rangel RN Name of Pharmacist if consulted NA Name of Plastics MD ( if consulted) NA (Mandatory photo for infiltrations/ extravasations scoring a stage 2 or greater, but recommended forstage 1)( include measuring tape and identifier in the photo) [facility] CARING FOR THIS PATIENT WILL CONTINUE TO [...] measuring tape and identifier in the photo) [facility] CAR[facility] FOR THIS PATIENT WILL CONTINUE TO [...] to both infiltrates addressed by this health science writer.All of Mr. Hoang's responses were entirely appropriate. Images of infiltrates attached here. Martha Sharp APRN - 07/13/2017 8:01 AM EST Cardiac Surgery Progress Note: ID: [id number] 72 year old male POD#6 s/p CABGx3 [...] ?? I have met with the patient/sales promotion representative to discuss discharge planning needs. I have provided the [facility], Office of Care Management letter from the Manager Of Production pertaining to rehab referrals. I have also provided a letter describing our affiliations within the [facility] and educated them about their right to choose where referrals are placed. ?? I reviewed the different levels of rehab including SNF, swing, acute and LTAC with the patient/sales promotion representative. ?? The patient/sales promotion representative has been provided a list of facilities within their preferred geographic area. ?? I have requested that the patient/sales promotion representative provide at least three choices for referral. ?? The patient/sales promotion representative have requested referrals to: ?? 1. . ?? 2. [facility] ?? 3. More to be entered ?? Expected date of discharge: 07/14 Note routed to Certified Neurodiagnostic Technologist who will communicate referrals to facilities and [...] hours. If BG remains greater than 240, kmzxtu02 units (no more than three times) & [...] hours. If BG remains greater than 240, sraxnb21 units (no more than three times) & call for new basal insulin orders. ??If less than 240 after two hours, give no insulin and resume prior schedule. Will continue to follow Katerin Azul APRN [facility] Endocrinology Diabetes Management Pager [phone] 20 minutes of this 35 minute visit was spent with the patient in counseling on diabetes and treatment plan, reviewing all glucose and insulin data as well as relevant laboratory results with the patient, and coordination of care on the inpatient unit including nursing and primary team. Makayla Stevenson APRN - 07/12/2017 9:52 AM EST Cardiac Surgery Progress Note: ID: [id number] 72 year old male POD#5 s/p CABGx3 [...] arrived from [facility]. VSS. MSI dressing pulled off with fresh [...] hours. If BG remains greater than 240, ozuubp79 units (no more than three times) & [...] AM EST Cardiac Surgery Progress Note: ID: [id number] 72 year old male POD#4 s/p CABGx3 [...] hours. If BG remains greater than 240, wejqnu11 units (no more than three times) & [...] AM EST Cardiac Surgery Progress Note: ID: [id number] 72 year old male POD#3 s/p CABGx3 [...] Gas) No results found for: PHART, PO2ART, RXP0EQY Assessment/Plan: 72 year old male POD#3 s/p [...] Mami Thao - 07/09/2017 6:29 PM EST Flanging Machine Operator Encounter Note Patient Name: Gregory Hoang : [id number] MR#: [id number] Admit Date: 07/05/2017 4:20 PM Hospital Day 4 days Narrative: Patient was sitting in chair, hugging heart pillow, opened his eyes, nodding to come into room Assessment: Patient was sleepy. Intervention and Outcome: Introduced company truck driver services and patient reached his hand out in appreciation. Follow-up: Flanging Machine Operator remains available for support. Time in [...] 07/09/2017 10:45 AM EST Report given to aoc aadc operations staff officer to cover care Maddison Cee PA - 07/09/2017 9:00 AM EST Cardiac Surgery Progress Note: ID: [id number] 72 year old male POD#2 s/p CABGx3 [...] Attending Surgeon on rounds. Signed: STEPHANIE Iqbal [facility] Section of Cardiac Surgery Date: 07/09/2017 [...] when IABP d/c'ed. Gretchen Carolina, PT Pager [phone] Maddison Cee PA - 07/08/2017 11:27 AM EST Cardiac Surgery Progress Note: ID: [id number] 72 year old male POD#1 s/p CABGx3 [...] Attending Surgeon on rounds. Signed: STEPHANIE Iqbal [facility] Section of Cardiac Surgery Date: 07/08/2017 [...] in place in R femoral. No hematoma. NETWORK INTERN- Intact Psych- Anxious Skin- Dry, no [...] intact. IABP in place in R femoral. NETWORK INTERN- Intact Psych- Anxious Skin- Dry, no [...] note for details. DAPHNE SHAHID MD Pager [phone] Jet Mckenna MD - 07/05/2017 6:48 PM EST Preliminary Cardiac Catheterization Procedure Note: Procedure(s) performed: Left heart cath, IABP insertion Access: Right PROTECTIVE SIGNAL REPAIRER HELPER-->8fr IABP A time-out was conducted prior to [...] effect. Heparin gtt maintained. Pt transferred to medical lab director. documented in this encounter H&P Notes Daphne Shahid MD - 07/05/2017 6:08 PM EST CARDIOLOGY HISTORY & PHYSICAL EXAM Date of Admission: 07/05/2017 ( Hospital Day 0 days ) Responsible Attending: Daphne Shahid MD PCP: Lovely Vicente MD PCP#: [phone] Patient Active Problem List Diagnosis Code ??? [...] transferred to [facility]. While there, continued sob, question of chest pain. Stat TTE showing WMA diffusely and EF around 20%. No significant valvular disease. Taken to the medical lab director urgently for ongoing STEMI. [facility] Labs: INR 1.0 WBC 5.88 Hgb [...] monitor I/O - s/p lasix in the medical lab director, redose to aim net neg 1L by [...] Medicine, PGY-2 Cardiology S1, Team Pager # [phone] CARDIOLOGY ATTENDING NOTE Patient: Gregory Hoang Date [...] amenable for PCI. DAPHNE SHAHID MD Pager [phone] documented in this encounter Miscellaneous Notes Consult Note - Daphne Shahid MD - 07/14/2017 11:46 AM EST Heart Failure Service Inpatient Consult Note Gregory Hoang Date of : 1945 Age: 72 y.o. Today's date: 07/14/17 PCP: Lovely Vicente MD FAMILY READINESS SUPPORT ASSISTANT: None Place of Service: [facility] Reason for Consult: Dr. Webber has requested [...] SETUP performed by Manny Mcknight MD at [facility] OR ??? PRO CABG, ARTERIAL, SINGLE N/A 07/07/2017 @CABG, USING ARTERIAL GRAFT;SINGLE ARTERIAL GRAFT (WRVU 33.75) performed by Yuan Webber MD at [facility] OR ??? PRO CABG, ARTERY-VEIN, TWO N/A 07/07/2017 @CABG, TWO VENOUS GRAFTS & ARTERIAL GRAFT (WRVU 7.93) performed by Yuan Webber MD at [facility] OR ??? PRO COLONOSCOPY, REMV LESN, SNARE 01/16/2014 COLONOSCOPY, POLYPECTOMY, REMOVAL LESION BY SNARE performed by Nohemi Jaimes MD at [facility] ENDOSCOPY ??? PRO ENDOSCOPY W/VIDEO-ASST VEIN HARVEST, CABG Right 07/07/2017 ENDOSCOPIC HARVEST VEIN(S) FOR CABG (WRVU 0.31) performed by Yuan Webber MD at [facility] OR ??? PRO THYROIDECTOMY 03/28/2013 THYROIDECTOMY, TOTAL OR COMPLETE performed by Manny Mcknight MD at [facility] OR Outpt Meds: Current Outpatient Prescriptions Medication [...] following studies: EKG 07/14/17: NSR 75 bpm, ENDING MACHINE OPERATOR anterior infarct, LAD CXR 07/11/17: FINDINGS: Sternotomy wires. The patient has been extubated, left chest tube removed, and [place] catheter removed since the 07/07/2017 study. Atelectasis [...] was discussed with Zehra. Jaden Kelley MD Documentation Coordinator Pager [phone] CARDIOLOGY ATTENDING NOTE Patient: Gregory Hoang Date [...] heart failure clinic. DAPHNE SHAHID MD Pager [phone] Plan of Care - Alden Chavarria PTA [...] home with assist Alden Chavarria PTA Pager: [phone] Inpatient Physical Therapy Problem: Acute Rehab Services [...] sit/sit to supine -- Bed Mobility Goal, [place] Level supervision required -- Bed Mobility Goal, [...] - 3 days -- Gait Training Goal, [place] Level supervision required -- Gait Training Goal, [...] days -- Transfer Training Goal, Activity Type vlw-ya-mcmxr/mzfje-dq-nxa;zps-xm-wpuzw/pqgbq-yh-aqr;toilet -- Transfer Train Goal, [place] Level supervision required -- Transfer Training Goal, [...] keeping present for 2 days per family. Sales And Service Consultant noted of frustrations, house keeping sent to room. Patient offered showered twice, refused. at bedside, frustrated that shower not complete, informed that patient had refused several times. requesting to see ANIMAL BEHAVIORIST, paged sent to Martha, will come to bedside (middle of consult). not willing to wait, Martha notified that family had gone home. Encouraged to come for morning rounds a t 8am. Diabetes team at bedside - insulin adjustments made. Call cabello in reach. Continue to monitor. PLAN MOVING FORWARD: Ambulate, dressing changes BID, Please change drsg at 4am per Martha ANIMAL BEHAVIORIST request. INDIVIDUALIZED FALL PREVENTION INTERVENTIONS: Patient-specific fall [...] levels on the lower side, 60ml of Kane juice given after a FS of 80. [...] Conf 07/13/17 0502 Interdisciplinary Rounds/Family Conf Participants manager of case;dietitian/nutrition services;nursing;occupational therapy;patient;pharmacy;physical therapy;physician Plan of Care - [...] monitoring required during toileting and ADLs]: RN OUTSIDE INSTALLATION MACHINIST Surveillance [continuous indirect monitoring]: Barrett Monitor CPG [...] Anticipated Discharge Disposition: home with assist Pager: [phone] CLARISSA SEGAL, PT 07/12/2017 Physical Therapy Rehabilitation [...] to sit/sit to supine Bed Mobility Goal, [place] Level supervision required Bed Mobility Goal, Additional Goal adheres to psternal precautions for transfer Goal: Gait Training Goal Stand Alone Therapy Goal Outcome: Ongoing (Interventions Implemented as Appropriate) 07/12/17 1225 Gait Training Goal Gait Training Goal, Date Established 07/12/17 Gait Training Goal, Time to Achieve 2 - 3 days Gait Training Goal, [place] Level supervision required Gait Training Goal, Assist [...] 3 days Transfer Training Goal, Activity Type ved-pj-whxbt/kjjab-dz-rxf;jxz-dy-xrtnl/hehoh-xb-smc;toilet Transfer Train Goal, [place] Level supervision required Transfer Training Goal, Additional Goal adheres to sternal precautions during transfer Consult Note - Octavia Vaughn RN - 07/12/2017 10:50 AM EST [facility] CARDIAC REHABILITATION Gregory Hoang was seen today regarding participation in the outpatient Phase 2 Cardiac Rehabilitation at [facility]. The patient agrees to a referral [...] IV site, amio to other piv and HOT TAMALE MAN at bedside to help assess, IV removed. [...] staff, he stood and marched in place. Bangs weak, wanting to sit back down. Remained [...] Health/Prescription Coverage: Primary Insurance: MEDICARE Secondary Insurance: [employer] [place] Prescription Coverage: yes Preferred Pharmacy: [facility] Other: none Primary Care Provider: Lovely Vicente MD [phone] Patient/Caregiver Goals of Treatment:live and get my breath back Potential Needs for Transition of Care: Rehab/SNF: [facility]: NA DME: TBD Dialysis: na Community Resources: available Transportation: yes Other: none Anticipated Barriers to Discharge/Special Considerations: none Plan: Likely SNF Rehab before home A member of the Care Management team will continue to monitor progress, follow for continuity of care and assist with transition of care planning. ERLIN Weiss Pager: [phone] Consult Note - Katerin Azul RN - [...] management and to provide a review of [facility] diabetes care. Diabetes History: Gregory Hoang has [...] potential to d/c gtt and start CF. student services rep diabetes care: Medications - Outpatient treatment regimen recommendations pending based on the hospital course. Monitoring - continue BG tid ac & hs Diet - low fat/low carb diet Exercise - weight-bearing exercise 30 min/day, as tolerated Thank you for allowing us to provide care for your patient W/E coverage, Dr. Jeane Tatum, pager [phone] Katerin Azul APRN Endocrinology Diabetes Management Pager [phone] Plan of Care - Stephanie Godoy, RN [...] Webber MD - 07/07/2017 6:27 PM EST [facility] [place] Patient Name: Gregory Hoang : [id number] MR#: [id number] Case Date: 07/07/2017 Surgeon: Surgeon(s) and Role: * Yuan Webber MD - Primary * Michael Drake PA - Physician Regulatory Affairs Associate * Linda Flores PA - Physician Regulatory Affairs Associate Preoperative diagnosis: 3VD Postoperative diagnosis: CAD, severe [...] Operative Note Patient Name: Gregory Hoang : [id number] MR#: [id number] Case Date: 07/07/2017 Surgeon: Surgeon(s) and Role: * Yuan Webber MD - Primary * Michael Drake PA - Physician Regulatory Affairs Associate * Linda Flores PA - Physician Regulatory Affairs Associate Preoperative diagnosis: 3VD Postoperative diagnosis: CAD, severe [...] (reference Cardiac: ACS (Acute Coronary Syndrome) (Adult) [facility]). 07/07/17621 Cardiac: ACS (Acute Coronary Syndrome) Problems [...] major CV events such as , stroke, NC, repeat revascularization compared to PCI). In this [...] Hahn, MS3 [employer] [employer] [facility] Cardiology S1 (Pager [phone]) Plan of Care - Emelia Ibarra RN [...] hospital and ruled infor non-ST segment elevation NC. This almost certainly represents the residual of [...] by Manny Mcknight MD at [facility] MAIN OR ??? PRO COLONOSCOPY, REMV LESN, SNARE 01/16/2014 COLONOSCOPY, POLYPECTOMY, REMOVAL LESION BY SNARE performed by Nohemi Jaimes MD at [facility] ENDOSCOPY ??? PRO THYROIDECTOMY 03/28/2013 THYROIDECTOMY, TOTAL OR COMPLETE performed by Manny Mcknight MD at [facility] MAIN OR Social History: Social History Social [...] with other involved physicians Yuan Webber MD [phone] Med Student Progress Note - Katty Hahn [...] major CV events such as , stroke, NC, repeat revascularization compared to PCI). In this [...] or BiPAP - s/p lasix in the medical lab director, was net -1.5L - s/p plavix load, [...] - Dispo: CVCC Katty Hahn, M3 [facility] Cardiology S1 (Pager [phone]) Plan of Care - Stephanie Godoy RN - 07/06/2017 5:00 AM EST Problem: Patient Care Overview Goal: Plan of Care Review 07/06/17 3286 Coping/Psychosocial Plan Of Care Reviewed With patient;family [...] in urinal without difficulty. Lasix given in medical lab director, 1.4 L out at this time. Pt [...] Outcome: Ongoing (Interventions Implemented as Appropriate) 07/06/17 3456 Cardiac: ACS (Acute Coronary Syndrome) Problems Assessed [...] [facility] CARDIOLOGY [place], [place] [address] (Wo rk) 06/10/2022 Office Visit Dermatology Laura Scherer MD [facility] [address]-DERMAT OLOGY [place], [place] [address] (Wo rk) Scheduled Orders Name [...] i n the results section. DIRECTOR OF GLOBAL MARKETING SCAN 07/15/2017 12:00 Res ults for this [...] Routine 07/08/2017 4:00 Results f or this ([facility]) AM EST procedure are i n the [...] Routine 07/06/2017 7:40 Results f or this ([facility]) PM EST procedure are i n the [...] Timed 07/06/2017 2:10 Results f or this ([facility]) PM EST procedure are i n the [...] section. TYPE AND SCREEN Routine 07/06/2017 12:00 ([facility]SHANDA) PM EST APTT STAT 07/06/2017 11:24 Results [...] Routine 07/06/2017 8:10 Results f or this ([facility] AM EST procedure are i n the [...] Routine 07/06/2017 2:20 Results f or this ([facility] AM EST procedure are i n the [...] Routine 07/05/2017 8:20 Results f or this ([facility] PM EST procedure are i n the [...] Timed 07/05/2017 4:55 Results f or this ([facility] PM EST procedure are i n the [...] EXAMINATION: XR CHEST PA AND LATERAL (GE JamiiIC) CLINICAL HISTORY: CABG x 3 TECHNIQUE: PA [...] Teague APRN IMG DX ORDERABLES SCAN DOC: DIRECTOR OF GLOBAL MARKETING (07/15/2017 12:00 AM EST) Narrative 07/15/2017 12:00 [...] POC Glucose 186 65 - 199 [facility] mg/dL [facility] Comment: Supplemental ranges: <140 mg/dL before meals <180 mg/dL all other times of the day Specimen Anatomical Collection Method Collection Time Receive d Time (Source) Location / / Volume Laterality Blood specimen 07/14/2017 11:56 7 (specimen) AM EST 11:56 AM EST Yuan Webber MD POINT OF CARE TEST ORDERABLE S Performing Organization Address City/State/ZIP Code Phon e Number [address] POCT Glucose (07/14/2017 7:52 AM EST) athologist Signature POC Glucose 126 65 - 199 [facility] mg/dL [facility] Comment: Supplemental ranges: <140 mg/dL before meals <180 mg/dL all other times of the day Specimen Anatomical Collection Method Collection Time Receive d Time (Source) Location / / Volume Laterality Blood specimen 07/14/2017 7:52 AM 017 7:52 (specimen) EST AM EST Yuan Webber MD POINT OF CARE TEST ORDERABLE S Performing Organization Address City/State/[place] [address] (ABNORMAL) Prothrombin Time (07/14/2017 4:46 AM EST) athologist Signature PT 26.4 (H) 11.8 - 14.0 [facility] LABORATORY INR 2.4 (H) 0.9 - 1.1 [facility] [...] [place] STACIE HEMATOLOGY ORDERABLES Performing Organization Address City/[facility]/ZIP Code Phon e Number [address] Potassium (07/14/2017 4:46 AM EST) athologist [facility] Potassium 4.3 3.5 - 5.0 [facility] mmol/L [facility] Comment: Please note: ??Patients [...] [place] STACIE CHEMISTRY ORDERABLES Performing Organization Address City/[facility]/ZIP Code Phon e Number [address] POCT Glucose (07/14/2017 4:34 AM EST) athologist Signature POC Glucose 115 65 - 199 [facility] mg/dL [facility] Comment: Supplemental ranges: <140 mg/dL before meals <180 mg/dL all other times of the day Specimen Anatomical Collection Method Collection Time Receive d Time (Source) Location / / Volume Laterality Blood specimen 07/14/2017 4:34 AM 017 4:34 (specimen) EST AM EST Yuan Webber MD POINT OF CARE TEST ORDERABLE S Performing Organization Address City/State/[place] [address] POCT Glucose (07/13/2017 11:33 PM EST) athologist Signature POC Glucose 132 65 - 199 [place] mg/dL [facility] Comment: Supplemental ranges: <140 mg/dL before meals <180 mg/dL all other times of the day Specimen Anatomical Collection Method Collection Time Receive d Time (Source) Location / / Volume Laterality Blood specimen 07/13/2017 11:33 7 (specimen) PM EST 11:33 PM EST Yuan Webber MD POINT OF CARE TEST ORDERABLE S Performing Organization Address City/State/[place] [address] POCT Glucose (07/13/2017 9:25 PM EST) athologist Signature POC Glucose 121 65 - 199 [facility] [place] mg/dL [facility] Comment: Supplemental ranges: <140 mg/dL before meals <180 mg/dL all other times of the day Specimen Anatomical Collection Method Collection Time Receive d Time (Source) Location / / Volume Laterality Blood specimen 07/13/2017 9:25 PM 017 9:25 (specimen) EST PM EST Yuan Webber MD POINT OF CARE TEST ORDERABLE S Performing Organization Address City/State/ZIP Code Phon e Number [address] POCT Glucose (07/13/2017 4:55 PM EST) athologist Signature POC Glucose 79 65 - 199 [facility] mg/dL [facility] Comment: Supplemental ranges: <140 mg/dL before meals <180 mg/dL all other times of the day Specimen Anatomical Collection Method Collection Time Receive d Time (Source) Location / / Volume Laterality Blood specimen 07/13/2017 4:55 PM 017 4:55 (specimen) EST PM EST Yuan Webber MD POINT OF CARE TEST ORDERABLE S Performing Organization Address City/State/[place] [address] POCT Glucose (07/13/2017 11:16 AM EST) athologist Signature POC Glucose 163 65 - 199 [facility]dL [facility] Comment: Supplemental ranges: <140 mg/dL before meals <180 mg/dL all other times of the day Specimen Anatomical Collection Method Collection Time Receive d Time (Source) Location / / Volume Laterality Blood specimen 07/13/2017 11:16 7 (specimen) AM EST 11:16 AM EST Yuan Webber MD POINT OF CARE TEST ORDERABLE S Performing Organization Address City/[facility]/[place] [address] POCT Glucose (07/13/2017 8:07 AM EST) athologist Signature POC Glucose 96 65 - 199 [facility] mg/dL [facility] Comment: Supplemental ranges: <140 mg/dL before meals <180 mg/dL all other times of the day Specimen Anatomical Collection Method Collection Time Receive d Time (Source) Location / / Volume Laterality Blood specimen 07/13/2017 8:07 AM 017 8:07 (specimen) EST AM EST Yuan Webber MD POINT OF CARE TEST ORDERABLE S Performing Organization Address City/State/[place] [address] (ABNORMAL) Prothrombin Time (07/13/2017 4:26 AM EST) P athologist Signature PT 20.8 (H) 11.8 - 14.0 [facility] LABORATORY INR 1.8 (H) 0.9 - 1.1 [facility] [...] Agency Comment Spec In Lab Makayla Wilson BULB TESTER HEMATOLOGY ORDERABLES Performing Organization Address City/State/[place] [address] (ABNORMAL) Basic Metabolic Panel (non-fasting) (07/13/2017 4:26 AM EST) P athologist Signature Glucose Lvl 95 65 - 199 [facility] mg/dL [facility] Comment: Diabetes: >=200 mg/dL [...] 107 mmol/L [facility] CO2 26 22 - 31 mmol/L [facility] Anion Gap 13 5 - 15 mmol/L [facility] Calcium 7.7 (L) 8.5 - 10.5 mg/dL [facility] Estimated GFR 60 >=60 [facility] Comment: The reported eGFR should be multiplied b y 1.2 for patients. The MDRD is not an appropriate measure o f renal function for patients with body mass extremes or in patients with acute kidney failure. http://[employer].nubelo/DHnkdep http://STEGOSYSTEMS.nubelo/DHMCnkf Specimen Anatomical Collection Method Collection Time Receive d Time (Source) Location / / Volume Laterality Blood specimen 07/13/2017 4:26 AM 017 4:46 (specimen) EST AM EST Resulting Agency Comment Spec In Lab Makayal Wilson APRN CHEMISTRY ORDERABLES Performing Organization Address City/State/ZIP Code Phon e Number [address] POCT Glucose (07/13/2017 3:52 AM EST) athologist Signature POC Glucose 93 65 - 199 [place] mg/dL [facility] Comment: Supplemental ranges: <140 mg/dL before meals <180 mg/dL all other times of the day Specimen Anatomical Collection Method Collection Time Receive d Time (Source) Location / / Volume Laterality Blood specimen 07/13/2017 3:52 AM 017 3:52 (specimen) EST AM EST Yuan Webber MD POINT OF CARE TEST ORDERABLE S Performing Organization Address City/State/ZIP Code Phon e Number [address] POCT Glucose (07/13/2017 12:21 AM EST) athologist Signature POC Glucose 80 65 - 199 [place] mg/dL [facility] Comment: Supplemental ranges: <140 mg/dL before meals <180 mg/dL all other times of the day Specimen Anatomical Collection Method Collection Time Receive d Time (Source) Location / / Volume Laterality Blood specimen 07/13/2017 12:21 7 (specimen) AM EST 12:21 AM EST Yuan Webber MD POINT OF CARE TEST ORDERABLE S Performing Organization Address City/[facility]/ZIP Code Phon e Number [address] POCT Glucose (07/12/2017 8:22 PM EST) athologist Signature POC Glucose 119 65 - 199 [place] mg/dL [facility] Comment: Supplemental ranges: <140 mg/dL before meals <180 mg/dL all other times of the day Specimen Anatomical Collection Method Collection Time Receive d Time (Source) Location / / Volume Laterality Blood specimen 07/12/2017 8:22 PM 017 8:22 (specimen) EST PM EST Yuan Webber MD POINT OF CARE TEST ORDERABLE S Performing Organization Address City/State/[place] [address] POCT Glucose (07/12/2017 4:02 PM EST) athologist Signature POC Glucose 114 65 - 199 [place] mg/dL [facility] Comment: Supplemental ranges: <140 mg/dL before meals <180 mg/dL all other times of the day Specimen Anatomical Collection Method Collection Time Receive d Time (Source) Location / / Volume Laterality Blood specimen 07/12/2017 4:02 PM 017 4:02 (specimen) EST PM EST Yuan Webber MD POINT OF CARE TEST ORDERABLE S Performing Organization Address City/State/[place] [address] POCT Glucose (07/12/2017 11:28 AM EST) athologist Signature POC Glucose 164 65 - 199 [place] mg/dL [facility] Comment: Supplemental ranges: <140 mg/dL before meals <180 mg/dL all other times of the day Specimen Anatomical Collection Method Collection Time Receive d Time (Source) Location / / Volume Laterality Blood specimen 07/12/2017 11:28 7 (specimen) AM EST 11:28 AM EST Yuan Webber MD POINT OF CARE TEST ORDERABLE S Performing Organization Address City/State/[place] [address] POCT Glucose (07/12/2017 7:34 AM EST) athologist Signature POC Glucose 109 65 - 199 [place] mg/dL [facility] Comment: Supplemental ranges: <140 mg/dL before meals <180 mg/dL all other times of the day Specimen Anatomical Collection Method Collection Time Receive d Time (Source) Location / / Volume Laterality Blood specimen 07/12/2017 7:34 AM 017 7:34 (specimen) EST AM EST Yuan Webber MD POINT OF CARE TEST ORDERABLE S Performing Organization Address City/State/ZIP [place] [address] (ABNORMAL) Basic Metabolic Panel (non-fasting) (07/12/2017 4:11 AM EST) athologist Signature Glucose Lvl 92 65 - 199 [facility] mg/dL [facility] Comment: Diabetes: >=200 mg/dL plus symp toms BUN 31 (H) 10 - 20 mg/dL [facility] Creatinine 1.23 0.80 [...] estions. Chloride 106 98 - 107 mmol/L [facility] CO2 Not Perf 22 - 31 mmol/L [facility] Comment: Add-on request. Sample too old to perform test. Anion Gap Not Calculated 5 - 15 mmol/L [facility] Calcium 8.1 (L) 8.5 - 10.5 mg/dL [facility] Estimated GFR 58 (L) >=60 [facility] Comment: The reported eGFR should be multiplied b y 1.2 for patients. The MDRD is not an appropriate measure o f renal function for patients with body mass extremes or in patients with acute kidney failure. http://[employer].nubelo/DHnkdep http://[employer]OS[employer].nubelo/DHnkf Specimen Anatomical Collection Method Collection Time Receive d Time (Source) Location / / Volume Laterality Blood specimen 07/12/2017 4:11 AM 017 8:57 (specimen) EST AM EST Resulting Agency Comment Spec In [facility] ORDERABLES Performing Organization Address [facility] [place] [address] (ABNORMAL) Prothrombin Time (07/12/2017 4:11 AM EST) athologist Signature PT 15.4 (H) 11.8 - 14.0 [facility] LABORATORY INR 1.2 (H) 0.9 - 1.1 [facility] [...] Agency Comment Spec In Lab Makayla [facility] HEMATOLOGY ORDERABLES Performing Organization Address City/[facility] [place] [address] Potassium (07/12/2017 4:11 AM EST) athologist Signature Potassium 3.8 3.5 - 5.0 [facility] mmol/L [facility] Comment: Please note: ??Patients [...] Address City/State/ZIP Code Phon e Number [address] POCT Glucose (07/12/2017 4:10 AM EST) athologist Signature POC Glucose 90 65 - 199 [facility] mg/dL [facility] Comment: Supplemental ranges: <140 mg/dL before meals <180 mg/dL all other times of the day Specimen Anatomical Collection Method Collection Time Receive d Time (Source) Location / / Volume Laterality Blood specimen 07/12/2017 4:10 AM 017 4:10 (specimen) EST AM EST Yuan Webber MD POINT OF CARE TEST ORDERABLE S Performing Organization Address City/[facility]/ZIP Code Phon e Number [address] POCT Glucose (07/11/2017 11:57 PM EST) athologist Signature POC Glucose 98 65 - 199 [facility] mg/dL [facility] Comment: Supplemental ranges: <140 mg/dL before meals <180 mg/dL all other times of the day Specimen Anatomical Collection Method Collection Time Receive d Time (Source) Location / / Volume Laterality Blood specimen 07/11/2017 11:57 7 (specimen) PM EST 11:57 PM EST Yuan Webber MD POINT OF CARE TEST ORDERABLE S Performing Organization Address City/[facility]/[place] [address] POCT Glucose (07/11/2017 8:32 PM EST) athologist Signature POC Glucose 146 65 - 199 [facility] mg/dL [facility] Comment: Supplemental ranges: <140 [...] Phon e Number [facility] [place] [id number] [facility] XR Chest PA & [...] e xtubated, left chest tube removed, and [place] catheter removed since the study. Atelectasis at [...] e xtubated, left chest tube removed, and [place] catheter removed since the study. Atelectasis at [...] (H) 65 - 199 [place] mg/dL [facility] Comment: Supplemental ranges: <140 mg/dL before meals <180 mg/dL all other times of the day Specimen Anatomical Collection Method Collection Time Receive d Time (Source) Location / / Volume Laterality Blood specimen 07/11/2017 4:05 PM 017 4:05 (specimen) EST PM EST Yuan Webber MD POINT OF CARE TEST ORDERABLE S Performing Organization Address City/State/ZIP Code Phon e Number [address] POCT Glucose (07/11/2017 11:55 AM EST) athologist Signature POC Glucose 176 65 - 199 [place] mg/dL [facility] Comment: Supplemental ranges: <140 mg/dL before meals <180 mg/dL all other times of the day Specimen Anatomical Collection Method Collection Time Receive d Time (Source) Location / / Volume Laterality Blood specimen 07/11/2017 11:55 7 (specimen) AM EST 11:55 AM EST Yuan Webber MD POINT OF CARE TEST ORDERABLE S Performing Organization Address City/State/ZIP Code Phon e Number [address] POCT Glucose (07/11/2017 7:53 AM EST) athologist Signature POC Glucose 189 65 - 199 [place] mg/dL [facility] Comment: Supplemental ranges: <140 mg/dL before meals <180 mg/dL all other times of the day Specimen Anatomical Collection Method Collection Time Receive d Time (Source) Location / / Volume Laterality Blood specimen 07/11/2017 7:53 AM 017 7:53 (specimen) EST AM EST Yuan Webber MD POINT OF CARE TEST ORDERABLE S Performing Organization Address City/State/ZIP Code Phon e Number [address] POCT Glucose (07/11/2017 4:22 AM EST) athologist Signature POC Glucose 151 65 - 199 [place] mg/dL [facility] Comment: Supplemental ranges: <140 mg/dL before meals <180 mg/dL all other times of the day Specimen Anatomical Collection Method Collection Time Receive d Time (Source) Location / / Volume Laterality Blood specimen 07/11/2017 4:22 AM 017 4:22 (specimen) EST AM EST Yuan Webber MD POINT OF CARE TEST ORDERABLE S Performing Organization Address City/[facility]/[place] [address] Potassium (07/11/2017 2:20 AM EST) P athologist Signature Potassium 4.5 3.5 - 5.0 [facility] mmol/L [facility] Comment: Please note: ??Patients [...] Webber MD CHEMISTRY ORDERABLES Performing Organization Address City/[facility]/[place] [address] POCT Glucose (07/11/2017 12:17 AM EST) athologist Signature POC Glucose 162 65 - 199 [facility] mg/dL [facility] Comment: Supplemental ranges: <140 mg/dL before meals <180 mg/dL all other times of the day Specimen Anatomical Collection Method Collection Time Receive d Time (Source) Location / / Volume Laterality Blood specimen 07/11/2017 12:17 7 (specimen) AM EST 12:17 AM EST Yuan Webber MD POINT OF CARE TEST ORDERABLE S Performing Organization Address City/[facility]/[place] [address] POCT Glucose (07/10/2017 8:47 PM EST) athologist Signature POC Glucose 191 65 - 199 [place] mg/dL [facility] Comment: Supplemental ranges: <140 mg/dL before meals <180 mg/dL all other times of the day Specimen Anatomical Collection Method Collection Time Receive d Time (Source) Location / / Volume Laterality Blood specimen 07/10/2017 8:47 PM 017 8:47 (specimen) EST PM EST Yuan Webber MD POINT OF CARE TEST ORDERABLE S Performing Organization Address City/State/ZIP Code Phon e Number [address] POCT Glucose (07/10/2017 4:06 PM EST) athologist Signature POC Glucose 131 65 - 199 [facility] mg/dL [facility] Comment: Supplemental ranges: <140 mg/dL before meals <180 mg/dL all other times of the day Specimen Anatomical Collection Method Collection Time Receive d Time (Source) Location / / Volume Laterality Blood specimen 07/10/2017 4:06 PM 017 4:06 (specimen) EST PM EST Yuan Webber MD POINT OF CARE TEST ORDERABLE S Performing Organization Address City/State/ZIP Code Phon e Number [address] POCT Glucose (07/10/2017 3:08 PM EST) athologist Signature POC Glucose 151 65 - 199 [facility] mg/dL [facility] Comment: Supplemental ranges: <140 mg/dL before meals <180 mg/dL all other times of the day Specimen Anatomical Collection Method Collection Time Receive d Time (Source) Location / / Volume Laterality Blood specimen 07/10/2017 3:08 PM 017 3:08 (specimen) EST PM EST Yuan Webber MD POINT OF CARE TEST ORDERABLE S Performing Organization Address City/State/ZIP Code Phon e Number [address] POCT Glucose (07/10/2017 2:25 PM EST) P athologist Signature POC Glucose 146 65 - 199 [place] mg/dL [facility] Comment: Supplemental ranges: <140 mg/dL before meals <180 mg/dL all other times of the day Specimen Anatomical Collection Method Collection Time Receive d Time (Source) Location / / Volume Laterality Blood specimen 07/10/2017 2:25 PM 017 2:25 (specimen) EST PM EST Yuan Webber MD POINT OF CARE TEST ORDERABLE S Performing Organization Address City/State/ZIP Code Phon e Number [address] POCT Glucose (07/10/2017 1:23 PM EST) athologist Signature POC Glucose 166 65 - 199 [place] mg/dL [facility] Comment: Supplemental ranges: <140 mg/dL before meals <180 mg/dL all other times of the day Specimen Anatomical Collection Method Collection Time Receive d Time (Source) Location / / Volume Laterality Blood specimen 07/10/2017 1:23 PM 017 1:23 (specimen) EST PM EST Yuan Webber MD POINT OF CARE TEST ORDERABLE S Performing Organization Address City/State/[place] [address] POCT Glucose (07/10/2017 11:52 AM EST) athologist Signature POC Glucose 157 65 - 199 [place] RYAN mg/dL [facility] Comment: Supplemental ranges: <140 mg/dL before meals <180 mg/dL all other times of the day Specimen Anatomical Collection Method Collection Time Receive d Time (Source) Location / / Volume Laterality Blood specimen 07/10/2017 11:52 7 (specimen) AM EST 11:52 AM EST Yuan Webber MD POINT OF CARE TEST ORDERABLE S Performing Organization Address City/State/ZIP Code Phon e Number [address] POCT Glucose (07/10/2017 11:01 AM EST) athologist Signature POC Glucose 158 65 - 199 [place] RYAN mg/dL [facility] Comment: Supplemental ranges: <140 mg/dL before meals <180 mg/dL all other times of the day Specimen Anatomical Collection Method Collection Time Receive d Time (Source) Location / / Volume Laterality Blood specimen 07/10/2017 11:01 7 (specimen) AM EST 11:01 AM EST Yuan Webber MD POINT OF CARE TEST ORDERABLE S Performing Organization Address City/State/[place] [address] POCT Glucose (07/10/2017 9:54 AM EST) P athologist Signature POC Glucose 160 65 - 199 [place] mg/dL [facility] Comment: Supplemental ranges: <140 mg/dL before meals <180 mg/dL all other times of the day Specimen Anatomical Collection Method Collection Time Receive d Time (Source) Location / / Volume Laterality Blood specimen 07/10/2017 9:54 AM 017 9:54 (specimen) EST AM EST Yuan Webber MD POINT OF CARE TEST ORDERABLE S Performing Organization Address City/State/[place] [address] POCT Glucose (07/10/2017 8:58 AM EST) P athologist Signature POC Glucose 183 65 - 199 [place] mg/dL [facility] Comment: Supplemental ranges: <140 mg/dL before meals <180 mg/dL all other times of the day Specimen Anatomical Collection Method Collection Time Receive d Time (Source) Location / / Volume Laterality Blood specimen 07/10/2017 8:58 AM 017 8:58 (specimen) EST AM EST Yuan Webber MD POINT OF CARE TEST ORDERABLE S Performing Organization Address City/State/[place] [address] POCT Glucose (07/10/2017 8:01 AM EST) P athologist Signature POC Glucose 173 65 - 199 [place] RYAN mg/dL [facility] Comment: Supplemental ranges: <140 mg/dL before meals <180 mg/dL all other times of the day Specimen Anatomical Collection Method Collection Time Receive d Time (Source) Location / / Volume Laterality Blood specimen 07/10/2017 8:01 AM 017 8:01 (specimen) EST AM EST Yuan Webber MD POINT OF CARE TEST ORDERABLE S Performing Organization Address City/[facility]/ZIP Code Phon e Number [address] POCT Glucose (07/10/2017 7:05 AM EST) athologist Signature POC Glucose 166 65 - 199 [facility] Comment: Supplemental ranges: <140 mg/dL before meals <180 mg/dL all other times of the day Specimen Anatomical Collection Method Collection Time Receive d Time (Source) Location / / Volume Laterality Blood specimen 07/10/2017 7:05 AM 017 7:05 (specimen) EST AM EST Yuan Webber MD POINT OF CARE TEST ORDERABLE S Performing Organization Address City/[facility]/ZIP Code Phon e Number [address] POCT Glucose (07/10/2017 6:00 AM EST) athologist Signature POC Glucose 162 65 - 199 [facility] Comment: Supplemental ranges: <140 mg/dL before meals <180 mg/dL all other times of the day Specimen Anatomical Collection Method Collection Time Receive d Time (Source) Location / / Volume Laterality Blood specimen 07/10/2017 6:00 AM 017 6:00 (specimen) EST AM EST Yuan Webber MD POINT OF CARE TEST ORDERABLE S Performing Organization Address City/State/ZIP Code Phon e Number [address] (ABNORMAL) Differential, Automated (07/10/2017 4:28 AM EST) [facility] gist Method Time Signature Neutrophils % 87.9 % [facility] LABORATORY Neutr Abs (ANC) 10.70 (H) 1.70 - [facility] 6.[address] [facility] x10(3)/[facility] L LABORATORY Lymphocytes % 3.9 % [facility] LABORATORY Lymphocytes Abs 0.5 (L) 0.9 - 3.2 [facility] x10(3)/[facility] LABORATORY Monocytes % 7.0 % [facility] LABORATORY Monocyte Abs 0.8 0.3 - 0.9 [facility] x10(3)/[facility] LABORATORY Eosinophils % 0.3 % [facility] LABORATORY Eosinophils Abs 0.0 0.0 - 0.4 [facility] x10(3)/[facility] LABORATORY Basophils % 0.2 % [facility] LABORATORY Basophils Abs 0.0 0.0 - 0.1 [facility] x10(3)/[facility] LABORATORY Immature Gran % 0.70 % [facility] LABORATORY Comment: Immature [...] Organization Address City/State/ZIP [place] [address] (ABNORMAL) Hemogram (07/10/2017 4:28 AM EST) Analysis Performed At Patho logist Time Signature WBC 12.2 (H) 4.0 - 9.5 [facility] x10(3)/[facility] LABORATORY RBC 3.31 (L) 4.58 - [facility] 5.[address] [facility] x10(6)/[facility] LABORATORY Hemoglobin 9.8 (L) 13.7 - [place] RYAN 16.5 gm/dL [facility] LABOR[facility]ORY Hematocrit 30.0 (L) 40.5 - [place] DAVIS 48.5 % [facility]ORATORY MCV 90.6 82.9 - [place] RYAN 93.1 [facility] LABORATORY MCH 29.6 27.5 - [place] OLIVASCK 32.1 pg [facility]ORATORY MCHC 32.7 32.0 - [place] OLIVASCK 35.7 gm/dL [facility] Platelets 135 (L) 145 - 357 [facility] x10(3)/[facility] LABORATORY RDWSD 50.8 (H) 36.0 - [place] RYAN 45.0 [facility] LABORATORY RDWCV 15.4 (H) 11.4 - [facility] 13.8 % [facility] MPV 10.0 7.6 - 12.9 [facility] LABORATORY nRBC % Auto 0.0 % [facility] LABORATORY nRBC Abs Auto 0.000 0.000 - [place] RYAN 0.[address] [facility] x10(3)/[facility] LABORATORY Specimen Anatomical Collection Method Collection Time Receive d Time (Source) Location / / Volume Laterality Blood specimen 07/10/2017 4:28 AM 017 4:36 (specimen) EST AM EST Resulting Agency Comment Spec In Lab Yuan Webber MD HEMATOLOGY ORDERABLES Performing Organization Address City/State/ZIP [place] [address] (ABNORMAL) Basic Metabolic Panel (non-fasting) (07/10/2017 4:28 AM EST) P athologist Signature Glucose Lvl 178 65 - 199 [facility] mg/dL [facility] Comment: Diabetes: >=200 mg/dL [...] estions. Chloride 107 98 - 107 mmol/L [facility] LABORATORY CO2 21 (L) 22 - 31 mmol/L [facility] LABOR[facility]ORY Anion Gap 15 5 - 15 mmol/L [facility] LABORATORY Calcium 7.4 (L) 8.5 - 10.5 mg/dL [facility] LABORATORY Estimated GFR 60 >=60 [facility]ORY Comment: The reported eGFR should be multiplied b y 1.2 for patients. The MDRD is not an appropriate measure o f renal function for patients with body mass extremes or in patients with acute kidney failure. [email or web address]/DHnkdep [email or web address]/DHMCnkf Specimen Anatomical Collection Method Collection Time Receive d Time (Source) Location / / Volume Laterality Blood specimen 07/10/2017 4:28 AM 017 4:36 (specimen) EST AM EST Resulting Agency Comment Spec In Lab Yuan Webber MD CHEMISTRY ORDERABLES Performing Organization Address City/State/ZIP Code Phon e Number [address] POCT Glucose (07/10/2017 4:26 AM EST) athologist Signature POC Glucose 176 65 - 199 [facility] mg/dL [facility] Comment: Supplemental ranges: <140 mg/dL before meals <180 mg/dL all other times of the day Specimen Anatomical Collection Method Collection Time Receive d Time (Source) Location / / Volume Laterality Blood specimen 07/10/2017 4:26 AM 017 4:26 (specimen) EST AM EST Yuan Webber MD POINT OF CARE TEST ORDERABLE S Performing Organization Address City/State/[place] [address] (ABNORMAL) POCT Glucose (07/10/2017 3:06 AM EST) athologist Signature POC Glucose 204 (H) 65 - 199 [place] mg/dL [facility] Comment: Supplemental ranges: <140 mg/dL before meals <180 mg/dL all other times of the day Specimen Anatomical Collection Method Collection Time Receive d Time (Source) Location / / Volume Laterality Blood specimen 07/10/2017 3:06 AM 017 3:06 (specimen) EST AM EST Yuan Webber MD POINT OF CARE TEST ORDERABLE S Performing Organization Address City/State/[place] [address] (ABNORMAL) POCT Glucose (07/10/2017 2:10 AM EST) athologist Signature POC Glucose 203 (H) 65 - 199 [facility] Comment: Supplemental ranges: <140 mg/dL before meals <180 mg/dL all other times of the day Specimen Anatomical Collection Method Collection Time Receive d Time (Source) Location / / Volume Laterality Blood specimen 07/10/2017 2:10 AM 017 2:10 (specimen) EST AM EST Yuan Webber MD POINT OF CARE TEST ORDERABLE S Performing Organization Address City/State/[place] [address] POCT Glucose (07/10/2017 1:09 AM EST) athologist Signature POC Glucose 196 65 - 199 [facility]/dL [facility] Comment: Supplemental ranges: <140 mg/dL before meals <180 mg/dL all other times of the day Specimen Anatomical Collection Method Collection Time Receive d Time (Source) Location / / Volume Laterality Blood specimen 07/10/2017 1:09 AM 017 1:09 (specimen) EST AM EST Yuan Webber MD POINT OF CARE TEST ORDERABLE S Performing Organization Address City/State/[place] [address] POCT Glucose (07/10/2017 12:10 AM EST) athologist Signature POC Glucose 173 65 - 199 [place] RYAN mg/dL [facility] Comment: Supplemental ranges: <140 mg/dL before meals <180 mg/dL all other times of the day Specimen Anatomical Collection Method Collection Time Receive d Time (Source) Location / / Volume Laterality Blood specimen 07/10/2017 12:10 7 (specimen) AM EST 12:10 AM EST Yuan Webber MD POINT OF CARE TEST ORDERABLE S Performing Organization Address City/State/ZIP Code Phon e Number [address] POCT Glucose (07/09/2017 11:01 PM EST) athologist Signature POC Glucose 140 65 - 199 [place] ZHAORYAN mg/dL [facility] Comment: Supplemental ranges: <140 mg/dL before meals <180 mg/dL all other times of the day Specimen Anatomical Collection Method Collection Time Receive d Time (Source) Location / / Volume Laterality Blood specimen 07/09/2017 11:01 7 (specimen) PM EST 11:01 PM EST Yuan Webber MD POINT OF CARE TEST ORDERABLE S Performing Organization Address City/State/ZIP Code Phon e Number [address] POCT Glucose (07/09/2017 10:05 PM EST) athologist Signature POC Glucose 144 65 - 199 [place] RYAN mg/dL [facility] Comment: Supplemental ranges: <140 mg/dL before meals <180 mg/dL all other times of the day Specimen Anatomical Collection Method Collection Time Receive d Time (Source) Location / / Volume Laterality Blood specimen 07/09/2017 10:05 7 (specimen) PM EST 10:05 PM EST Yuan Webber MD POINT OF CARE TEST ORDERABLE S Performing Organization Address City/State/ZIP Code Phon e Number [address] POCT Glucose (07/09/2017 9:31 PM EST) athologist Signature POC Glucose 121 65 - 199 [place] RYAN mg/dL [facility] Comment: Supplemental ranges: <140 mg/dL before meals <180 mg/dL all other times of the day Specimen Anatomical Collection Method Collection Time Receive d Time (Source) Location / / Volume Laterality Blood specimen 07/09/2017 9:31 PM 017 9:31 (specimen) EST PM EST Yuan Webber MD POINT OF CARE TEST ORDERABLE S Performing Organization Address City/State/[place] [address] POCT Glucose (07/09/2017 9:03 PM EST) athologist Signature POC Glucose 98 65 - 199 [place] ZHAORYAN mg/dL [facility] Comment: Supplemental ranges: <140 mg/dL before meals <180 mg/dL all other times of the day Specimen Anatomical Collection Method Collection Time Receive d Time (Source) Location / / Volume Laterality Blood specimen 07/09/2017 9:03 PM 017 9:03 (specimen) EST PM EST Yuan Webber MD POINT OF CARE TEST ORDERABLE S Performing Organization Address City/State/[place] [address] POCT Glucose (07/09/2017 8:09 PM EST) athologist Signature POC Glucose 117 65 - 199 [place] RYAN mg/dL [facility] Comment: Supplemental ranges: <140 mg/dL before meals <180 mg/dL all other times of the day Specimen Anatomical Collection Method Collection Time Receive d Time (Source) Location / / Volume Laterality Blood specimen 07/09/2017 8:09 PM 017 8:09 (specimen) EST PM EST Yuan Webber MD POINT OF CARE TEST ORDERABLE S Performing Organization Address City/State/[place] [address] POCT Glucose (07/09/2017 5:40 PM EST) athologist Signature POC Glucose 155 65 - 199 [place] ZHAORYAN mg/dL [facility] Comment: Supplemental ranges: <140 mg/dL before meals <180 mg/dL all other times of the day Specimen Anatomical Collection Method Collection Time Receive d Time (Source) Location / / Volume Laterality Blood specimen 07/09/2017 5:40 PM 017 5:40 (specimen) EST PM EST Yuan Webber MD POINT OF CARE TEST ORDERABLE S Performing Organization Address City/State/ZIP Code Phon e Number [address] POCT Glucose (07/09/2017 4:24 PM EST) athologist Signature POC Glucose 164 65 - 199 [place] RYAN mg/dL [facility] Comment: Supplemental ranges: <140 mg/dL before meals <180 mg/dL all other times of the day Specimen Anatomical Collection Method Collection Time Receive d Time (Source) Location / / Volume Laterality Blood specimen 07/09/2017 4:24 PM 017 4:24 (specimen) EST PM EST Yuan Webber MD POINT OF CARE TEST ORDERABLE S Performing Organization Address City/State/ZIP Code Phon e Number [address] POCT Glucose (07/09/2017 3:19 PM EST) athologist Signature POC Glucose 166 65 - 199 [place] RYAN mg/dL [facility] Comment: Supplemental ranges: <140 mg/dL before meals <180 mg/dL all other times of the day Specimen Anatomical Collection Method Collection Time Receive d Time (Source) Location / / Volume Laterality Blood specimen 07/09/2017 3:19 PM 017 3:19 (specimen) EST PM EST Yuan Webber MD POINT OF CARE TEST ORDERABLE S Performing Organization Address City/State/[place] [address] POCT Glucose (07/09/2017 2:26 PM EST) athologist Signature POC Glucose 179 65 - 199 [facility] RYAN mg/dL [facility] Comment: Supplemental ranges: <140 mg/dL before meals <180 mg/dL all other times of the day Specimen Anatomical Collection Method Collection Time Receive d Time (Source) Location / / Volume Laterality Blood specimen 07/09/2017 2:26 PM 017 2:26 (specimen) EST PM EST Yuan Webber MD POINT OF CARE TEST ORDERABLE S Performing Organization Address City/State/[place] [address] (ABNORMAL) POCT Glucose (07/09/2017 1:29 PM EST) athologist Signature POC Glucose 210 (H) 65 - 199 [place] RYAN mg/dL [facility] Comment: Supplemental ranges: <140 mg/dL before meals <180 mg/dL all other times of the day Specimen Anatomical Collection Method Collection Time Receive d Time (Source) Location / / Volume Laterality Blood specimen 07/09/2017 1:29 PM 017 1:29 (specimen) EST PM EST Yuan Webber MD POINT OF CARE TEST ORDERABLE S Performing Organization Address City/State/[place] [address] POCT Glucose (07/09/2017 12:20 PM EST) athologist Signature POC Glucose 172 65 - 199 [place] RYAN mg/dL [facility] Comment: Supplemental ranges: <140 mg/dL before meals <180 mg/dL all other times of the day Specimen Anatomical Collection Method Collection Time Receive d Time (Source) Location / / Volume Laterality Blood specimen 07/09/2017 12:20 7 (specimen) PM EST 12:20 PM EST Yuan Webber MD POINT OF CARE TEST ORDERABLE S Performing Organization Address City/State/[place] [address] POCT Glucose (07/09/2017 11:24 AM EST) athologist Signature POC Glucose 156 65 - 199 [place] RYAN mg/dL [facility] Comment: Supplemental ranges: <140 mg/dL before meals <180 mg/dL all other times of the day Specimen Anatomical Collection Method Collection Time Receive d Time (Source) Location / / Volume Laterality Blood specimen 07/09/2017 11:24 7 (specimen) AM EST 11:24 AM EST Yuan Webber MD POINT OF CARE TEST ORDERABLE S Performing Organization Address City/State/ZIP Code Phon e Number [address] POCT Glucose (07/09/2017 11:11 AM EST) athologist Signature POC Glucose 172 65 - 199 [place] RYAN mg/dL [facility] Comment: Supplemental ranges: <140 mg/dL before meals <180 mg/dL all other times of the day Specimen Anatomical Collection Method Collection Time Receive d Time (Source) Location / / Volume Laterality Blood specimen 07/09/2017 11:11 7 (specimen) AM EST 11:11 AM EST Yuan Webber MD POINT OF CARE TEST ORDERABLE S Performing Organization Address City/State/[place] [address] POCT Glucose (07/09/2017 10:08 AM EST) athologist Signature POC Glucose 176 65 - 199 [facility]/dL [facility] Comment: Supplemental ranges: <140 mg/dL before meals <180 mg/dL all other times of the day Specimen Anatomical Collection Method Collection Time Receive d Time (Source) Location / / Volume Laterality Blood specimen 07/09/2017 10:08 7 (specimen) AM EST 10:08 AM EST Yuan Webber MD POINT OF CARE TEST ORDERABLE S Performing Organization Address City/State/[place] [address] POCT Glucose (07/09/2017 8:02 AM EST) athologist Signature POC Glucose 178 65 - 199 [facility] RYAN mg/dL [facility] Comment: Supplemental ranges: <140 mg/dL before meals <180 mg/dL all other times of the day Specimen Anatomical Collection Method Collection Time Receive d Time (Source) Location / / Volume Laterality Blood specimen 07/09/2017 8:02 AM 017 8:02 (specimen) EST AM EST Yuan Webber MD POINT OF CARE TEST ORDERABLE S Performing Organization Address City/State/ZIP [place] [address] (ABNORMAL) BLOOD GAS 2 ARTERIAL (07/09/2017 5:37 AM EST) Analysis Performed At Patho logist Time Signature pH Art 7.36 7.35 - [facility] 7.45 [facility] pCO2 Art 38 35 - 45 [facility] LABORATORY pO2 Art 79 (L) 85 - 104 [facility] LABORATORY HCO3 Art 20.9 20.0 - [facility] 26.[address] [facility] mmol/[facility] LABORATORY BE Art -4.6 (L) -3.0 - 3.0 [facility] mmol/L [facility] Hgb Blood Gas 10.5 (L) 13.7 - [facility] 16.5 gm/dL [facility] O2HB Art 93.8 (L) 94.0 - [facility] 97.0 % [facility] COHB Art 0.3 % [facility] LABORATORY Comment: Nonsmokers: 0.5-1.5% COHB Smokers: Variable, but usually less than 10% Toxic: 20-30% COHB Lethal: Greater than 60% COHB METHB Art 0.6 <=1.5 % [facility] LABORATORY Na Whole Blood 141 135 - 145 mmol/L [facility] K Whole Blood 4.5 3.5 - 5.0 mmol/L [facility] Comment: Please note: Patients with WBC >100,000 may have falsely elevated Potassium levels. Contact the Clinical Chemistry L aboratory if there are any questions. ICa Whole Blood 1.01 (L) 1.15 - 1.33 mmol/L [facility] FIO2 Art 40 % [facility] LABOR[facility] PF Ratio Art 198 [facility] LABORATORY Specimen Anatomical Collection Method Collection Time Receive d Time (Source) Location / / Volume Laterality Blood specimen 07/09/2017 5:37 AM 017 5:37 (specimen) EST AM EST Yuan Webber MD CHEMISTRY ORDERABLES Performing Organization Address City/[facility]/ZIP Code Phon e Number [address] POCT Glucose (07/09/2017 3:27 AM EST) athologist Signature POC Glucose 192 65 - 199 [facility] Comment: Supplemental ranges: <140 mg/dL before meals <180 mg/dL all other times of the day Specimen Anatomical Collection Method Collection Time Receive d Time (Source) Location / / Volume Laterality Blood specimen 07/09/2017 3:27 AM 017 3:27 (specimen) EST AM EST Yuan Webber MD POINT OF CARE TEST ORDERABLE S Performing Organization Address City/[facility]/[place] [address] (ABNORMAL) Basic Metabolic Panel (non-fasting) (07/09/2017 2:30 AM EST) athologist Signature Glucose Lvl 179 65 - 199 [facility] Comment: Diabetes: >=200 mg/dL plus symp toms BUN 17 10 - 20 mg/dL [facility] LABORATORY Creatinine 1.34 0.80 [...] Chloride 111 (H) 98 - 107 mmol/L [facility] CO2 21 (L) 22 - 31 mmol/L [facility] Anion Gap 12 5 - 15 mmol/L [facility] LABORATORY Calcium 7.1 (L) 8.5 - 10.5 mg/dL [facility] Comment: result [id number]-[id number] Estimated GFR 53 (L) >=60 [facility] LABORATORY Comment: The reported eGFR should be multiplied b y 1.2 for patients. The MDRD is not an appropriate measure o f renal function for patients with body mass extremes or in patients with acute kidney failure. [email or web address]/DHnkdep [email or web address] Specimen Anatomical Collection Method Collection Time Receive d Time (Source) Location / / Volume Laterality Blood specimen Venous Draw / 07/09/2017 2:30 AM 2016 2:42 (specimen) Unknown EST AM EST Resulting Agency Comment Spec In Lab Yuan Webber MD CHEMISTRY ORDERABLES Performing Organization Address City/State/[facility] [place] [address] (ABNORMAL) Potassium (07/09/2017 2:30 AM EST) P athologist Signature Potassium 5.1 (H) 3.5 - 5.0 [facility] mmol/L [facility] Comment: Please note: ??Patients [...] City/State/ZIP Code Phon e Number [place] [id number]ORY [address] (ABNORMAL) Hemogram (07/09/2017 2:30 AM EST) Analysis Performed At Patho logist Time Signature WBC 12.5 (H) 4.0 - 9.5 [facility] x[facility](3[facility] LABORATORY RBC 3.38 (L) 4.58 - [place] 5.[address] [facility] x10(6)/[facility] LABORATORY Hemoglobin 10.1 (L) 13.7 - [facility] 16.5 gm/dL [facility] Hematocrit 30.3 (L) 40.5 - [facility] 48.5 % [facility] MCV 89.6 82.9 - [facility] 93.1 [facility] LABORATORY MCH 29.9 27.5 - [place] 32.1 pg [facility] MCHC 33.3 32.0 - [place] 35.7 gm/dL [facility] Platelets 127 (L) 145 - 357 [facility] x10(3)/[facility] LABORATORY RDWSD 49.3 (H) 36.0 - [place] 45.0 [facility] LABORATORY RDWCV 15.2 (H) 11.4 - [facility] R[facility]AN 13.8 % [facility] MPV 9.9 7.6 - 12.9 [facility] LABORATORY nRBC % Auto 0.0 % [facility] nRBC Abs Auto 0.000 0.000 - [facility] RYAN 0.[address] [facility] x10(3)/[facility] LABORATORY Specimen Anatomical Collection Method Collection Time Receive d Time (Source) Location / / Volume Laterality Blood specimen 07/09/2017 2:30 AM 017 2:41 (specimen) EST AM EST Resulting Agency Comment Spec In Lab Yuan Webber MD HEMATOLOGY ORDERABLES Performing Organization Address City/State/ZIP [place] [address] POCT Glucose (07/09/2017 2:10 AM EST) P athologist Signature POC Glucose 169 65 - 199 [place] mg/dL [facility] Comment: Supplemental ranges: <140 mg/dL before meals <180 mg/dL all other times of the day Specimen Anatomical Collection Method Collection Time Receive d Time (Source) Location / / Volume Laterality Blood specimen 07/09/2017 2:10 AM 017 2:10 (specimen) EST AM EST Yuan Webber MD POINT OF CARE TEST ORDERABLE S Performing Organization Address City/[facility]/[place] [address] POCT Glucose (07/09/2017 1:01 AM EST) P athologist Signature POC Glucose 173 65 - 199 [place] mg/dL [facility] Comment: Supplemental ranges: <140 mg/dL before meals <180 mg/dL all other times of the day Specimen Anatomical Collection Method Collection Time Receive d Time (Source) Location / / Volume Laterality Blood specimen 07/09/2017 1:01 AM 017 1:01 (specimen) EST AM EST Yuan Webber MD POINT OF CARE TEST ORDERABLE S Performing Organization Address City/State/[place] [address] Blood culture (07/09/2017 12:40 AM EST) Patholo gist Method Time Signature Blood Culture No growth [place] ZHAORYAN at 5 days. [facility] Specimen Anatomical Collection Method Collection Time Receive d Time (Source) Location / / Volume Laterality Blood specimen STRUCTURE OF RIGHT 07/09/2017 12:40 3:58 (specimen) UPPER LIMB / AM EST AM EST Unknown Resulting Agency Comment Spec In Lab Yuan Webber MD MICROBIOLOGY - BLOOD ORDERAB LES Performing Organization Address City/State/[place] [address] Blood culture (07/09/2017 12:30 AM EST) Patholo gist Method Time Signature Blood Culture No growth [place] ZHAORYAN at 5 days. [facility] Specimen Anatomical Collection Method Collection Time Receive d Time (Source) Location / / Volume Laterality Blood specimen STRUCTURE OF LEFT 07/09/2017 12:30 1211/2016 3:59 (specimen) UPPER LIMB / AM EST AM EST Unknown Resulting Agency Comment Spec In Lab Yuan Webber MD MICROBIOLOGY - BLOOD ORDERAB LES Performing Organization Address City/[facility]/[place] [address] (ABNORMAL) Urinalysis Microscopic Exam (07/09/2017 12:05 AM EST) Analysis Performed At Patho logist Time Signature RBC UA 32 (H) 0 - 3 /HPF [facility] WBC UA 5 (H) 0 - 3 /HPF [facility] Squam Epith UA <1 <=4 /HPF [facility] Hyaline Cast 17 (H) 0 - 2 /LPF [facility] Gran Cast UA 1 (H) <=0 /LPF [facility] Uric Ac Bianca Rare (A) None /HPF [facility] Specimen (Source) Anatomical Collection Method Collection Time Re ceived Time Location / / Volume Laterality Urine specimen 07/09/2017 12:05 7 obtained via AM EST 12:39 AM EST indwelling urinary catheter (specimen) Resulting Agency Comment Spec In Lab Yuan Webber MD URINE ORDERABLES Performing Organization Address City/[facility]/[place] [address] (ABNORMAL) Urinalysis with reflex Culture (07/09/2017 12:05 AM EST) Patholo gist Method Time Signature Glucose UA Negative Negative [facility] mg/dL [facility] Protein UA 30 (A) Negative [facility] mg/dL [facility] Bilirubin UA Negative Negative [facility] mg/dL [facility] Comment: Clinical correlation required for positi ve Urine Bilirubin results as false positive may occur with some drugs and d rug related products. If a false positive is suspected a serum total bili yeager should be considered if clinically indicated. Urobilinogen UA Normal Normal mg/dL [facility] pH UA 5.0 5.0 - 8.0 [facility] Blood UA Moderate (A) Negative mg/dL [facility] Ketones UA Negative Negative mg/dL [facility] Nitrite UA Negative Negative [facility] Leukocytes UA Negative Negative [facility] LABORATORY Appearance UA Hazy (A) Clear [facility] Spec Liguori UA 1.025 1.002 - 1.030 [facility] Color UA Yellow Yellow [facility] Culture Reflexed No [facility] Specimen (Source) Anatomical Collection Method Collection Time Re ceived Time Location / / Volume Laterality Urine specimen 07/09/2017 12:05 7 obtained via AM EST 12:39 AM EST indwelling urinary catheter (specimen) Resulting Agency Comment Spec In Lab Yuan Webber MD URINE ORDERABLES Performing Organization Address City/[facility]/ZIP Code Phon e Number [address] POCT Glucose (07/08/2017 11:01 PM EST) athologist Signature POC Glucose 191 65 - 199 [facility] mg/dL [facility] Comment: Supplemental ranges: <140 mg/dL before meals <180 mg/dL all other times of the day Specimen Anatomical Collection Method Collection Time Receive d Time (Source) Location / / Volume Laterality Blood specimen 07/08/2017 11:01 7 (specimen) PM EST 11:01 PM EST Yuan Webber MD POINT OF CARE TEST ORDERABLE S Performing Organization Address City/State/ZIP Code Phon e Number [address] POCT Glucose (07/08/2017 10:04 PM EST) athologist Signature POC Glucose 198 65 - 199 [facility] mg/dL [facility] Comment: Supplemental ranges: <140 mg/dL before meals <180 mg/dL all other times of the day Specimen Anatomical Collection Method Collection Time Receive d Time (Source) Location / / Volume Laterality Blood specimen 07/08/2017 10:04 7 (specimen) PM EST 10:04 PM EST Yuan Webber MD POINT OF CARE TEST ORDERABLE S Performing Organization Address City/State/[place] [address] Prepare Albumin 5% in 250 mL (07/08/2017 8:49 PM EST) P athologist Signature Dispensed? Yes [facility] Specimen Anatomical Collection Method Collection Time Receive d Time (Source) Location / / Volume Laterality Blood specimen No Charge / 07/08/2017 8:49 PM 017 8:51 (specimen) Unknown EST PM EST Resulting Agency Comment Spec In Lab [facility] ORDERABLES Performing Organization Address City/[facility]/[place] [address] POCT Glucose (07/08/2017 8:28 PM EST) P athologist Signature POC Glucose 195 65 - 199 [facility] Comment: Supplemental ranges: <140 mg/dL before meals <180 mg/dL all other times of the day Specimen Anatomical Collection Method Collection Time Receive d Time (Source) Location / / Volume Laterality Blood specimen 07/08/2017 8:28 PM 017 8:28 (specimen) EST PM EST Yuan Webber MD POINT OF CARE TEST ORDERABLE S Performing Organization Address City/State/[place] [address] (ABNORMAL) POCT Glucose (07/08/2017 7:13 PM EST) P athologist Signature POC Glucose 220 (H) 65 - 199 [facility]dL [facility] Comment: Supplemental ranges: <140 mg/dL before meals <180 mg/dL all other times of the day Specimen Anatomical Collection Method Collection Time Receive d Time (Source) Location / / Volume Laterality Blood specimen 07/08/2017 7:13 PM 017 7:13 (specimen) EST PM EST Yuan Webber MD POINT OF CARE TEST ORDERABLE S Performing Organization Address City/State/ZIP [place] [address] POCT Glucose (07/08/2017 5:04 PM EST) P athologist Signature POC Glucose 147 65 - 199 [facility] mg/dL [facility] Comment: Supplemental ranges: <140 mg/dL before meals <180 mg/dL all other times of the day Specimen Anatomical Collection Method Collection Time Receive d Time (Source) Location / / Volume Laterality Blood specimen 07/08/2017 5:04 PM 017 5:04 (specimen) EST PM EST Yuan Webber MD POINT OF CARE TEST ORDERABLE S Performing Organization Address City/State/[place] [address] (ABNORMAL) BLOOD GAS 2 ARTERIAL (07/08/2017 4:13 PM EST) Analysis Performed At Patho logist Time Signature pH Art 7.38 7.35 - [facility] 7.45 [facility] pCO2 Art 36 35 - 45 [facility] LABORATORY pO2 Art 91 85 - 104 [facility] LABORATORY HCO3 Art 20.9 20.0 - [facility] 26.[address] [facility] mmol/L [facility] BE Art -4.2 (L) -3.0 - 3.0 [facility] mmol/L [facility] Hgb Blood Gas 11.7 (L) 13.7 - [facility] 16.5 gm/dL [facility] O2HB Art 95.1 94.0 - [facility] 97.0 % [facility] COHB Art 0.6 % [facility] Comment: Nonsmokers: 0.5-1.5% COHB Smokers: Variable, but usually less than 10% Toxic: 20-30% COHB Lethal: Greater than 60% COHB METHB Art 0.6 <=1.5 % [facility] Na Whole Blood 139 135 - 145 mmol/L [facility] K Whole Blood 4.2 3.5 - 5.0 mmol/L [facility] Comment: Please note: Patients with WBC >100,000 may have falsely elevated Potassium levels. Contact the Clinical Chemistry L aboratory if there are any questions. ICa Whole Blood 1.05 (L) 1.15 - 1.33 mmol/L [facility] FIO2 Art 40 % [facility] PF Ratio Art 228 [facility] Specimen Anatomical Collection Method Collection Time Receive d Time (Source) Location / / Volume Laterality Blood specimen 07/08/2017 4:13 PM 017 4:13 (specimen) EST PM EST Yuan Webber MD CHEMISTRY ORDERABLES Performing Organization Address City/[facility]/ZIP [facility] Phon e Number [address] POCT Glucose (07/08/2017 4:01 PM EST) athologist Signature POC Glucose 148 65 - 199 [facility]dL [facility] Comment: Supplemental ranges: <140 mg/dL before meals <180 mg/dL all other times of the day Specimen Anatomical Collection Method Collection Time Receive d Time (Source) Location / / Volume Laterality Blood specimen 07/08/2017 4:01 PM 017 4:01 (specimen) EST PM EST Yuan Webber MD POINT OF CARE TEST ORDERABLE S Performing Organization Address City/[facility] Code Phon e Number [address] POCT Glucose (07/08/2017 3:21 PM EST) athologist Signature POC Glucose 118 65 - 199 [facility]dL [facility] Comment: Supplemental ranges: <140 mg/dL before meals <180 mg/dL all other times of the day Specimen Anatomical Collection Method Collection Time Receive d Time (Source) Location / / Volume Laterality Blood specimen 07/08/2017 3:21 PM 017 3:21 (specimen) EST PM EST Yuan Webber MD POINT OF CARE TEST ORDERABLE S Performing Organization Address City/State/[place] [address] POCT Glucose (07/08/2017 2:01 PM EST) athologist Signature POC Glucose 129 65 - 199 [place] mg/dL [facility] Comment: Supplemental ranges: <140 mg/dL before meals <180 mg/dL all other times of the day Specimen Anatomical Collection Method Collection Time Receive d Time (Source) Location / / Volume Laterality Blood specimen 07/08/2017 2:01 PM 017 2:01 (specimen) EST PM EST Yuan Webber MD POINT OF CARE TEST ORDERABLE S Performing Organization Address City/State/[place] [address] POCT Glucose (07/08/2017 11:53 AM EST) athologist Signature POC Glucose 156 65 - 199 [place] mg/dL [facility] Comment: Supplemental ranges: <140 mg/dL before meals <180 mg/dL all other times of the day Specimen Anatomical Collection Method Collection Time Receive d Time (Source) Location / / Volume Laterality Blood specimen 07/08/2017 11:53 7 (specimen) AM EST 11:53 AM EST Yuan Webber MD POINT OF CARE TEST ORDERABLE S Performing Organization Address City/State/ZIP Code Phon e Number [address] POCT Glucose (07/08/2017 11:04 AM EST) athologist Signature POC Glucose 181 65 - 199 [facility] mg/dL [facility] Comment: Supplemental ranges: <140 mg/dL before meals <180 mg/dL all other times of the day Specimen Anatomical Collection Method Collection Time Receive d Time (Source) Location / / Volume Laterality Blood specimen 07/08/2017 11:04 7 (specimen) AM EST 11:04 AM EST Yuan Webber MD POINT OF CARE TEST ORDERABLE S Performing Organization Address City/[facility]/[place] [address] (ABNORMAL) POCT Glucose (07/08/2017 9:24 AM EST) athologist Signature POC Glucose 203 (H) 65 - 199 [facility] mg/dL [facility] Comment: Supplemental ranges: <140 mg/dL before meals <180 mg/dL all other times of the day Specimen Anatomical Collection Method Collection Time Receive d Time (Source) Location / / Volume Laterality Blood specimen 07/08/2017 9:24 AM 017 9:24 (specimen) EST AM EST Yuan Webber MD POINT OF CARE TEST ORDERABLE S Performing Organization Address City/[facility]/[place] [address] APTT (07/08/2017 8:40 AM EST) athologist Signature PTT 33 25 - 35 sec [facility] Comment: The recommended therapeutic range for fu ll dose, unfractionated heparin at [facility] is 80 ? 114 seconds. The use [...] Webber MD HEMATOLOGY ORDERABLES Performing Organization Address City/[facility]/[place] [address] (ABNORMAL) Prothrombin Time (07/08/2017 8:40 AM EST) athologist Signature PT 15.6 (H) 11.8 - 14.0 [facility] LABORATORY INR 1.3 (H) 0.9 - 1.1 [facility] [...] Webber MD HEMATOLOGY ORDERABLES Performing Organization Address City/[facility]/[place] [address] (ABNORMAL) POCT Glucose (07/08/2017 7:38 AM EST) P athologist Signature POC Glucose 232 (H) 65 - 199 [facility] mg/dL [facility] Comment: Supplemental ranges: <140 mg/dL before meals <180 mg/dL all other times of the day Specimen Anatomical Collection Method Collection Time Receive d Time (Source) Location / / Volume Laterality Blood specimen 07/08/2017 7:38 AM 017 7:38 (specimen) EST AM EST Yuan Webber MD POINT OF CARE TEST ORDERABLE S Performing Organization Address City/State/[place] [address] (ABNORMAL) POCT Glucose (07/08/2017 7:07 AM EST) P athologist Signature POC Glucose 234 (H) 65 - 199 [facility] mg/dL [facility] Comment: Supplemental ranges: <140 mg/dL before meals <180 mg/dL all other times of the day Specimen Anatomical Collection Method Collection Time Receive d Time (Source) Location / / Volume Laterality Blood specimen 07/08/2017 7:07 AM 017 7:07 (specimen) EST AM EST Yuan Webber MD POINT OF CARE TEST ORDERABLE S Performing Organization Address City/State/[place] [address] (ABNORMAL) POCT Glucose (07/08/2017 6:04 AM EST) athologist Signature POC Glucose 225 (H) 65 - 199 [facility] mg/dL [facility] Comment: Supplemental ranges: <140 mg/dL before meals <180 mg/dL all other times of the day Specimen Anatomical Collection Method Collection Time Receive d Time (Source) Location / / Volume Laterality Blood specimen 07/08/2017 6:04 AM 017 6:04 (specimen) EST AM EST Yuan Webber MD POINT OF CARE TEST ORDERABLE S Performing Organization Address City/[facility]/[place] [address] (ABNORMAL) POCT Glucose (07/08/2017 5:31 AM EST) athologist Signature POC Glucose 216 (H) 65 - 199 [facility] mg/dL [facility] Comment: Supplemental ranges: <140 mg/dL before meals <180 mg/dL all other times of the day Specimen Anatomical Collection Method Collection Time Receive d Time (Source) Location / / Volume Laterality Blood specimen 07/08/2017 5:31 AM 017 5:31 (specimen) EST AM EST Yuan Webber MD POINT OF CARE TEST ORDERABLE S Performing Organization Address City/State/[place] [address] (ABNORMAL) POCT Glucose (07/08/2017 4:52 AM EST) athologist Signature POC Glucose 257 (H) 65 - 199 [facility] mg/dL [facility] Comment: Supplemental ranges: <140 mg/dL before meals <180 mg/dL all other times of the day Specimen Anatomical Collection Method Collection Time Receive d Time (Source) Location / / Volume Laterality Blood specimen 07/08/2017 4:52 AM 017 4:52 (specimen) EST AM EST Daphne Shahid MD POINT OF CARE TEST ORDERABLE S Performing Organization Address City/State/ZIP [place] [address] (ABNORMAL) BLOOD GAS 2 ARTERIAL (07/08/2017 4:04 AM EST) Analysis Performed At Patho logist Time Signature pH Art 7.30 (L) 7.35 - [facility] 7.45 [facility] pCO2 Art 41 35 - 45 [facility] mmHg [facility] pO2 Art 83 (L) 85 - 104 [facility] LABORATORY HCO3 Art 19.6 (L) 20.0 - [facility] 26.[address] [facility] mmol/[facility] LABORATORY BE Art -6.8 (L) -3.0 - 3.0 [facility] mmol/L [facility] Hgb Blood Gas 12.2 (L) 13.7 - [facility] 16.5 gm/dL [facility] O2HB Art 93.5 (L) 94.0 - [facility] 97.0 % [facility] COHB Art 0.4 % [facility] Comment: Nonsmokers: 0.5-1.5% COHB Smokers: Variable, but usually less than 10% Toxic: 20-30% COHB Lethal: Greater than 60% COHB METHB Art 0.8 <=1.5 % [facility] Na Whole Blood 138 135 - 145 mmol/L [facility] K Whole Blood 4.4 3.5 - 5.0 mmol/L [facility] Comment: Please note: Patients with WBC >100,000 may have falsely elevated Potassium levels. Contact the Clinical Chemistry L aboratory if there are any questions. ICa Whole Blood 1.05 (L) 1.15 - 1.33 mmol/L [facility] Comment: Noted by air quality instrument specialist. FIO2 Art 40 % [facility] PF Ratio Art 208 [facility] Specimen Anatomical Collection Method Collection Time Receive d Time (Source) Location / / Volume Laterality Blood specimen 07/08/2017 4:04 AM 017 4:04 (specimen) EST AM EST Dpahne Shahid MD CHEMISTRY ORDERABLES Performing Organization Address City/[facility]/ZIP Code Phon e Number [address] Scan, Peripheral Blood (07/08/2017 4:00 AM EST) P athologist Signature Plat Estimate Normal [facility] RBC Morphology Normal [facility] Specimen Anatomical Collection Method Collection Time Receive d Time (Source) Location / / Volume Laterality Blood specimen 07/08/2017 4:00 AM 017 4:09 (specimen) EST AM EST Resulting Agency Comment Spec In Lab Yuan Webber MD HEMATOLOGY ORDERABLES Performing Organization Address City/[facility]/ZIP Code Phon e Number [address] (ABNORMAL) Differential, Automated (07/08/2017 4:00 AM EST) Patholo gist Method Time Signature Neutrophils % 85.4 % [facility] Neutr Abs (ANC) 16.07 (H) 1.70 - [facility] 6.[address] [facility] x10(3)/[facility] L LABORATORY Lymphocytes % 3.5 % [facility] Lymphocytes Abs 0.6 (L) 0.9 - 3.2 [facility] x10(3)/[facility] LABORATORY Monocytes % 10.4 % [facility] Monocyte Abs 2.0 (H) 0.3 - 0.9 [facility] x10(3)/[facility] LABORATORY Eosinophils % 0.0 % [facility] Eosinophils Abs 0.0 0.0 - 0.4 [facility] x10(3)/[facility] LABORATORY Basophils % 0.1 % [facility] Basophils Abs 0.0 0.0 - 0.1 [facility] x10(3)/[facility] LABORATORY Immature Gran % 0.60 % [facility] [...] City/State/ZIP Code Phon e Number [place] [id number]OS[address] LAB[address]ORY Drive (ABNORMAL) Hemogram (07/08/2017 4:00 AM EST) Analysis Performed At Patho logist Time Signature WBC 18.8 (H) 4.0 - 9.5 [facility] x10(3)/[facility] LABORATORY RBC 4.00 (L) 4.58 - [facility] 5.[address] [facility] x10(6)/[facility] LABORATORY Hemoglobin 11.9 (L) 13.7 - [facility] 16.5 gm/dL [facility] Hematocrit 35.9 (L) 40.5 - [facility] 48.5 % [facility] MCV 89.8 82.9 - [facility] 93.1 fL [facility] MCH 29.8 27.5 - [place] 32.1 pg [facility] [facility] MCHC 33.1 32.0 - [facility] RYAN 35.7 gm/dL [facility] Platelets 232 145 - 357 [facility] x10(3)/[facility] LABORATORY RDWSD 47.6 (H) 36.0 - [facility] 45.0 [facility] LABORATORY RDWCV 14.5 (H) 11.4 - [facility] 13.8 % [facility] MPV 9.5 7.6 - 12.9 [facility] LABORATORY nRBC % Auto 0.0 % [facility] nRBC Abs Auto 0.000 0.000 - [facility] 0.[address] [facility] x10(3)/[facility] LABORATORY Specimen Anatomical Collection Method Collection Time Receive d Time (Source) Location / / Volume Laterality Blood specimen 07/08/2017 4:00 AM 017 4:09 (specimen) EST AM EST Resulting Agency Comment Spec In Lab Yuan Webber MD HEMATOLOGY ORDERABLES Performing Organization Address City/[facility]/[place] [address] (ABNORMAL) Electrolytes panel (07/08/2017 4:00 AM EST) P athologist Signature Sodium 139 135 - 145 [facility] mmol/L [facility] Potassium 4.7 3.5 - 5.0 [facility] mmol/[facility] Comment: result rechecked-JLK Please note: [...] 15 mmol/L [facility] Specimen Anatomical Collection Method Collection Time Receive d Time (Source) Location / / Volume Laterality Blood specimen 07/08/2017 4:00 AM 017 4:10 (specimen) EST AM EST Resulting Agency Comment Spec In Lab Yuan Webber MD CHEMISTRY ORDERABLES Performing Organization Address City/[facility]/ZIP [facility] [place] [address] (ABNORMAL) Cardiac Enzymes (LEB/CGP) (07/08/2017 4:00 AM EST) athologist Signature Troponin-T 1.88 (H) 0.00 - [facility] 0.00 ng/mL [facility] Comment: The 99th percentile for Troponin T is le ss than 0.01 ng/mL, any detectable cTnT concentration using this assay should be considered elevated. According to the third universal definit ion of myocardial infarction the following criteria with a clinical prese ntation consistent with acute myocardial ischemia meets the diagnosis for a myocardial infarction (NC). Detection of a rise and/or fall of [...] additional sample may be indicated. Reference: Third Pinon Definition of Myocardial Infarction. Journal of the [employer] College [employer]iology 2012;60:1581-98 CK, Total 413 (H) 0 - 200 unit/L [facility] Comment: result rechecked-K Specimen Anatomical Collection Method Collection Time Receive d Time (Source) Location / / Volume Laterality Blood specimen 07/08/2017 4:00 AM 017 4:09 (specimen) EST AM EST Resulting Agency Comment Spec In Lab Yuan Webber MD CHEMISTRY ORDERABLES Performing Organization Address City/State/ZIP [place] [address] (ABNORMAL) Glucose, fasting (07/08/2017 4:00 AM EST) athologist Signature Glucose 287 (H) 65 - 99 [facility] Fasting mg/dL [facility] Comment: ?Fasting* Glucose Interpretive [...] Webber MD CHEMISTRY ORDERABLES Performing Organization Address City/[facility] [place] [address] (ABNORMAL) Creatinine (07/08/2017 4:00 AM EST) Analysis Performed At [facility] Time Signature Creatinine 1.55 (H) 0.80 - [facility] 1.50 mg/dL [facility] Estimated GFR 44 (L) >=60 [facility] Comment: The reported eGFR should be multiplied b y 1.2 for patients. The MDRD is not an appropriate measure o f renal function for patients with body mass extremes or in patients with acute kidney failure. http://STEGOSYSTEMS.nubelo/DHnkdep http://STEGOSYSTEMS.nubelo/DHMCnkf Specimen Anatomical Collection Method Collection Time Receive d Time (Source) Location / / Volume Laterality Blood specimen 07/08/2017 4:00 AM 017 4:09 (specimen) EST AM EST Resulting Agency Comment Spec In Lab Yuan Webber MD CHEMISTRY ORDERABLES Performing Organization Address City/[facility]/ZIP [place] [address] BUN (07/08/2017 4:00 AM EST) athologist Signature BUN 16 10 - 20 [facility] mg/dL [facility] Specimen Anatomical Collection Method Collection Time Receive d Time (Source) Location / / Volume Laterality Blood specimen 07/08/2017 4:00 AM 017 4:09 (specimen) EST AM EST Resulting Agency Comment Spec In Lab Yuan Webber MD CHEMISTRY ORDERABLES Performing Organization Address City/State/[place] [address] (ABNORMAL) POCT Glucose (07/08/2017 3:00 AM EST) athologist Signature POC Glucose 273 (H) 65 - 199 [facility] mg[facility]dL [facility] Comment: Supplemental ranges: <140 mg/dL before meals <180 mg/dL all other times of the day Specimen Anatomical Collection Method Collection Time Receive d Time (Source) Location / / Volume Laterality Blood specimen 07/08/2017 3:00 AM 017 3:00 (specimen) EST AM EST Daphne Shahid MD POINT OF CARE TEST ORDERABLE S Performing Organization Address City/[facility]/[place] [address] (ABNORMAL) POCT Glucose (07/08/2017 1:57 AM EST) athologist Signature POC Glucose 288 (H) 65 - 199 [facility] mg/dL [facility] Comment: Supplemental ranges: <140 mg/dL before meals <180 mg/dL all other times of the day Specimen Anatomical Collection Method Collection Time Receive d Time (Source) Location / / Volume Laterality Blood specimen 07/08/2017 1:57 AM 017 1:57 (specimen) EST AM EST Daphne Shahid MD POINT OF CARE TEST ORDERABLE S Performing Organization Address City/State/[place] [address] (ABNORMAL) POCT Glucose (07/08/2017 1:01 AM EST) athologist Signature POC Glucose 315 (H) 65 - 199 [facility] mg/dL [facility] Comment: Supplemental ranges: <140 mg/dL before meals <180 mg/dL all other times of the day Specimen Anatomical Collection Method Collection Time Receive d Time (Source) Location / / Volume Laterality Blood specimen 07/08/2017 1:01 AM 017 1:01 (specimen) EST AM EST Daphne Shahid MD POINT OF CARE TEST ORDERABLE S Performing Organization Address City/State/[place] [address] (ABNORMAL) BLOOD GAS 2 ARTERIAL (07/08/2017 12:09 AM EST) athologist Signature pH Art 7.26 7.35 - [facility] (Critical) 7.45 [facility] Comment: Noted by air quality instrument specialist. pCO2 Art 41 35 - 45 mmHg [facility] pO2 Art 96 85 - 104 mmHg [facility] HCO3 Art 17.7 (L) 20.0 - 26.0 mmol/L [facility] BE Art -9.4 (L) -3.0 - 3.0 mmol/L [facility] Hgb Blood Gas 12.4 (L) 13.7 - 16.5 gm/dL [facility] O2HB Art 94.7 94.0 - 97.0 % [facility]ORY COHB Art 0.2 % [facility] Comment: Nonsmokers: 0.5-1.5% COHB Smokers: Variable, but usually less than 10% Toxic: 20-30% COHB Lethal: Greater than 60% COHB METHB Art 0.6 <=1.5 % [facility] Na Whole Blood 141 135 - 145 mmol/L [facility] K Whole Blood 3.5 3.5 - 5.0 mmol/L [facility] Comment: Please note: Patients with WBC >100,000 may have falsely elevated Potassium levels. Contact the Clinical Chemistry L aboratory if there are any questions. ICa Whole Blood 1.03 (L) 1.15 - 1.33 mmol/L [facility] Comment: Noted by air quality instrument specialist. FIO2 Art 40 % [facility] PF Ratio Art 240 [facility] Specimen Anatomical Collection Method Collection Time Receive d Time (Source) Location / / Volume Laterality Blood specimen Arterial Draw / 07/08/2017 12:09 2016 5:31 (specimen) Unknown AM EST AM EST Resulting Agency Comment Spec In Lab Samy Maldonado MD CHEMISTRY ORDERABLES Performing Organization Address City/State/[place] [address] (ABNORMAL) POCT Glucose (07/07/2017 10:56 PM EST) P athologist Signature POC Glucose 292 (H) 65 - 199 [facility] mg/dL [facility] Comment: Supplemental ranges: <140 mg/dL before meals <180 mg/dL all other times of the day Specimen Anatomical Collection Method Collection Time Receive d Time (Source) Location / / Volume Laterality Blood specimen 07/07/2017 10:56 7 (specimen) PM EST 10:56 PM EST Daphne Shahid MD POINT OF CARE TEST ORDERABLE S Performing Organization Address City/[facility]/[place] [address] (ABNORMAL) BLOOD GAS 2 ARTERIAL (07/07/2017 10:04 PM EST) P athologist Signature pH Art 7.22 7.35 - [facility] (Critical) 7.45 [facility] Comment: Noted by air quality instrument specialist. pCO2 Art 42 35 - 45 mmHg [facility] LAB[facility]ATORY pO2 Art 94 85 - 104 mmHg [facility]ORY HCO3 Art 16.9 (L) 20.0 - 26.0 mmol/L [facility] BE Art -10.7 (L) -3.0 - 3.0 mmol/L [facility] Hgb Blood Gas 13.0 (L) 13.7 - 16.5 gm/dL [facility] O2HB Art 93.8 (L) 94.0 - 97.0 % [facility]ORY COHB Art 0.7 % [facility]ORY Comment: Nonsmokers: 0.5-1.5% COHB Smokers: Variable, but usually less than 10% Toxic: 20-30% COHB Lethal: Greater than 60% COHB METHB Art 0.7 <=1.5 % [facility] LABORATORY [...] Blood 1.07 (L) 1.15 - 1.33 mmol/L [facility] Comment: Noted by air quality instrument specialist. FIO2 Art 40 % [facility] PF Ratio Art 235 [facility] LABORATORY Specimen Anatomical Collection Method Collection Time Receive d Time (Source) Location / / Volume Laterality Blood specimen 07/07/2017 10:04 7 (specimen) PM EST 10:04 PM EST Daphne Shahid MD CHEMISTRY ORDERABLES Performing Organization Address City/[facility]/[place] [address] (ABNORMAL) Hemoglobin (07/07/2017 10:00 PM EST) athologist Signature Hemoglobin 12.8 (L) 13.7 - [facility] 16.5 gm/dL [facility] Specimen Anatomical Collection Method Collection Time Receive d Time (Source) Location / / Volume Laterality Blood specimen 07/07/2017 10:00 7 (specimen) PM EST 10:13 PM EST Resulting Agency Comment Spec In Lab Yuan Webber MD HEMATOLOGY ORDERABLES Performing Organization Address City/[facility] [place] [place] [address] (ABNORMAL) Potassium (07/07/2017 10:00 PM EST) athologist Signature Potassium 3.4 (L) 3.5 - 5.0 [facility] mmol/L [facility] Comment: Please note: ??Patients [...] Webber MD CHEMISTRY ORDERABLES Performing Organization Address City/[facility]/ZIP [facility] [place] [address] (ABNORMAL) POCT Glucose (07/07/2017 8:49 PM EST) athologist Signature POC Glucose 241 (H) 65 - 199 [facility] Comment: Supplemental ranges: <140 mg/dL before meals <180 mg/dL all other times of the day Specimen Anatomical Collection Method Collection Time Receive d Time (Source) Location / / Volume Laterality Blood specimen 07/07/2017 8:49 PM 017 8:49 (specimen) EST PM EST Daphne Shahid MD POINT OF CARE TEST ORDERABLE S Performing Organization Address City/[facility]/[place] [address] Prepare Albumin 5% in 250 mL (07/07/2017 8:03 PM EST) P athologist Signature Dispensed? Yes [facility] Specimen Anatomical Collection Method Collection Time Receive d Time (Source) Location / / Volume Laterality Blood specimen No Charge / 07/07/2017 8:03 PM 017 8:04 (specimen) Unknown EST PM EST Resulting Agency Comment Spec In Lab Michael BROWN BLOOD BANK ORDERABLES Performing Organization Address [facility] [place] [address] EKG 12 Lead (07/07/2017 7:17 PM EST) Component Value Ref Range Test Analysis Performed Pathologis t Method Time At Signature Ventricular rate 75 BPM MUSE SYSTEM Atrial Rate 75 BPM MUSE SYSTEM P-R Interval 168 ms MUSE SYSTEM QRS Duration 104 ms MUSE SYSTEM Q-T Interval 462 ms MUSE SYSTEM QTC Calculated 515 ms MUSE SYSTEM (Bezet) Calculated P [place] 52 degrees MUSE SYSTEM Calculated R [place] -40 degrees MUSE SYSTEM Calculated T [place] 39 degrees MUSE SYSTEM INTERPRETATION Normal sinus [...] Webber MD ECG ORDERABLES Performing Organization Address City/[facility]/ZIP Code Phon e Number MUSE [...] Art 7.21 7.35 - [facility] (Critical) [address] [place] [address] LABORATORY Comment: Noted by air quality instrument specialist. pCO2 Art 50 (H) 35 - 45 mmHg [facility] LABORATORY pO2 Art 238 (H) 85 - 104 mmHg [facility]ORY HCO3 Art 19.8 (L) 20.0 - 26.0 mmol/L [facility] BE Art -8.1 (L) -3.0 - 3.0 mmol/L [facility] Hgb Blood Gas 12.8 (L) 13.7 - 16.5 gm/dL [facility] O2HB Art 97.5 (H) 94.0 - 97.0 % [facility]ORY COHB Art 0.5 % [facility] Comment: Nonsmokers: 0.5-1.5% COHB Smokers: Variable, but usually less than 10% Toxic: 20-30% COHB Lethal: Greater than 60% COHB METHB Art 0.7 <=1.5 % [facility]ATORY Na Whole Blood 140 135 - 145 mmol/L [facility] K Whole Blood 3.0 (Critical) 3.5 - 5.0 mmol/L [facility] Comment: Noted by air quality instrument specialist. Please note: Patients with WBC >100,000 may have falsely elevated Potassium levels. Contact the Clinical Chemistry L aboratory if there are any questions. ICa Whole Blood 1.07 (L) 1.15 - 1.33 mmol/L [facility] Comment: Noted by air quality instrument specialist. FIO2 Art 100 % [facility]ORY PF Ratio Art 238 [facility] LABORATORY Specimen Anatomical Collection Method Collection Time Receive d Time (Source) Location / / Volume Laterality Blood specimen 07/07/2017 6:57 PM 017 6:57 (specimen) EST PM EST Daphne Shahid MD CHEMISTRY ORDERABLES Performing Organization Address City/State/ZIP [place] [address] (ABNORMAL) BLOOD GAS 2 ARTERIAL (07/07/2017 5:31 PM EST) athologist Signature pH Art 7.29 7.35 - [facility] (Critical) 7.45 [facility] Comment: Noted by air quality instrument specialist. pCO2 Art 48 (H) 35 - 45 mmHg [facility] LABORATORY pO2 Art 137 (H) 85 - 104 mmHg [facility]ORY HCO3 Art 22.4 20.0 - 26.0 mmol/L [facility] BE Art -4.3 (L) -3.0 - 3.0 mmol/L [facility] Hgb Blood Gas 10.0 (L) 13.7 - 16.5 gm/dL [facility] O2HB Art 97.3 (H) 94.0 - 97.0 % [facility]ORY COHB Art 0.3 % [facility] Comment: Nonsmokers: 0.5-1.5% COHB Smokers: Variable, but usually less than 10% Toxic: 20-30% COHB Lethal: Greater than 60% COHB METHB Art 0.3 <=1.5 % [facility] LABORATORY [...] Blood 1.14 (L) 1.15 - 1.33 mmol/L [facility] Shahid MD CHEMISTRY ORDERABLES Performing Organization Address City/[facility] Phon e Number [address] Fibrinogen (07/07/2017 5:30 PM EST) athologist Signature Fibrinogen 224 180 - 510 [facility] mg/dL [facility] Comment: Called by: [facility], Read back by: Monica Campos on/OR16, [...] Perez MD HEMATOLOGY ORDERABLES Performing Organization Address City/[facility] Phon e Number [address] APTT (07/07/2017 5:30 PM EST) P athologist Signature PTT 30 25 - 35 sec [facility] Comment: The recommended therapeutic range for fu ll dose, unfractionated heparin at [facility] is 80 ? 114 seconds. The use [...] Perez MD HEMATOLOGY ORDERABLES Performing Organization Address City/[facility]/[place] [address] (ABNORMAL) Prothrombin Time (07/07/2017 5:30 PM EST) P athologist Signature PT 19.0 (H) 11.8 - 14.0 [facility] [...] Perez MD HEMATOLOGY ORDERABLES Performing Organization Address City/[facility]/[place] [address] (ABNORMAL) Hemogram (07/07/2017 5:30 PM EST) P athologist Signature WBC 19.6 (H) 4.0 - 9.5 [facility] x10(3)/[facility] LABORATORY RBC 3.08 (L) 4.58 - [facility] 5.[address] [facility] x10(6)/[facility] LABORATORY Hemoglobin 9.2 (L) 13.7 - [facility] 16.5 gm/dL [facility] Hematocrit 28.0 (L) 40.5 - [facility] 48.5 % [facility] Comment: This result has been called to MONICA WEINSTEIN LUISA by DONALD GROSSMAN on 07 07 2017 at 1759, and has been read back. MCV 90.9 82.9 - 93.1 fL [facility] MCH 29.9 27.5 - 32.1 pg [facility]ORY MCHC 32.9 32.0 - 35.7 gm/dL [facility] Platelets 155 145 - 357 x10(3)/[facility] LABORATORY RDWSD 46.5 (H) 36.0 - 45.0 fL [facility]ORY RDWCV 14.1 (H) 11.4 - 13.8 % [facility] LABORATORY MPV 9.5 7.6 - 12.9 fL [facility] LABORATORY nRBC % Auto 0.0 % [facility] LAB[facility]ORY nRBC Abs Auto 0.000 0.000 - 0.000 x10(3)/[facility] LABORATORY Specimen Anatomical Collection Method Collection Time Receive d Time (Source) Location / / Volume Laterality Blood specimen 07/07/2017 5:30 PM 017 5:34 (specimen) EST PM EST Resulting Agency Comment Spec In Lab Yifan Perez MD HEMATOLOGY ORDERABLES Performing Organization Address City/[facility]/ZIP [facility] Phon e Number [address] Prepare Platelets, Apheresis (07/07/2017 5:00 PM EST) P athologist Signature Dispensed? Yes [facility]OR[facility]ORY Specimen Anatomical Collection Method Collection Time Receive d Time (Source) Location / / Volume Laterality Blood specimen 07/07/2017 5:00 PM 017 4:58 (specimen) EST PM EST Daphne Shahid MD BLOOD BANK ORDERABLES Performing Organization Address City/[facility]/ZIP [facility] Phon e Number [address] Platelet count (07/07/2017 4:55 PM EST) P athologist Signature Platelets 177 145 - 357 [facility] x10(3)/[facility] LABORATORY Plat Immature 1.5 0.0 - 7.4 [facility] LABORATORY Comment: Limitation of the Immature Platelet Frac tion (IPF)-May be less reliable when the platelet count is less than 59c909/u L due to statistical imprecision. The IPF [...] in a decreased state of production. References: [employer] The Clinical Value of the Immature Platelet Fraction (IPF) in Cell Recovery Document Number 10-1143 12/2010 [employer] The Role of the Imm ature [...] Organization Address City/State/Z[place] [address] (ABNORMAL) Hemoglobin and Hematocrit, blood (07/07/2017 4:55 PM EST) athologist Signature Hemoglobin 9.1 (L) 13.7 - 16.5 [facility] gm/dL [facility] Comment: This result has been called to MALKA MORAN by DONALD GROSSMAN on 07 07 2017 at 1734, and has been read back. Hematocrit 26.6 (L) 40.5 - 48.5 % [facility] Comment: This result has [...] Organization Address City/State/ZIP [place] [address] (ABNORMAL) BLOOD GAS 2 ARTERIAL (07/07/2017 4:38 PM EST) Analysis Performed At Patho logist Time Signature pH Art 7.37 7.35 - [facility] 7.45 [facility] pCO2 Art 44 35 - 45 [facility] mmHg [facility] pO2 Art 322 (H) 85 - 104 [facility] LABORATORY HCO3 Art 24.[address] 20.[address] - [facility] 26.[address] [facility] mmol/L [facility] LABORATORY BE Art -0.4 -3.0 - 3.0 [facility] mmol/L [facility] Hgb Blood Gas 10.1 (L) 13.7 - [facility] 16.5 gm/dL [facility] O2HB Art 98.7 (H) 94.0 - [facility] 97.0 % [facility]ORY COHB Art 0.1 % [facility] LABORATORY Comment: Nonsmokers: 0.5-1.5% COHB Smokers: Variable, but usually less than 10% Toxic: 20-30% COHB Lethal: Greater than 60% COHB METHB Art 0.3 <=1.5 % [facility] LABORATORY [...] Blood 0.89 (Critical) 1.15 - 1.33 mmol/L [facility]ORY Comment: Noted by air quality instrument specialist. Note: ??Total bilirubin higher than 20 m [...] Organization Address City/State/Z[place] [address] (ABNORMAL) BLOOD GAS 2 VENOUS (07/07/2017 4:06 PM EST) Analysis Performed At Patho logist Time Signature pH Cody 7.31 (L) 7.32 - [facility] 7.42 [facility]ORATORY pCO2 [place] 47 41 - 51 [facility] LABORATORY pO2 [place] 53 (H) 25 - 40 [facility] LABORATORY HCO3 [place] 22.7 mmol/L [facility] LABORATORY BE [place] -3.7 mmol/L [facility] LABORATORY Hgb Blood Gas 10.2 (L) 13.7 - [facility] 16.5 gm/dL [facility] O2HB [place] 81.0 % [facility] LABORATORY COHB [place] 1.0 % [facility] LABORATORY Comment: Nonsmokers: 0.5-1.5% COHB Smokers: Variable, but usually less than 10% Toxic: 20-30% COHB Lethal: Greater than 60% COHB METHB [place] 0.3 <=1.5 % [facility] LABORATORY [...] Blood 0.90 (Critical) 1.15 - 1.33 mmol/L [facility] Comment: Noted by air quality instrument specialist. Note: ??Total bilirubin higher than 20 m g/dL may lead to falsely low ionized calcium. CL Whole Blood 100 98 - 107 mmol/L [facility] LABORATORY Gluc Whole Bld 231 (H) 65 - 199 mg/dL [facility] LABORATORY Comment: Diabetes: >=200 mg/dL plus symp toms Lactate WB 1.1 0.5 - 2.2 mmol/L [facility] BGas Source Venous [facility] LABORATORY Specimen Anatomical Collection Method Collection Time Receive d Time (Source) Location / / Volume Laterality Blood specimen 07/07/2017 4:06 PM 017 4:06 (specimen) EST PM EST Daphne Shahid MD CHEMISTRY ORDERABLES Performing Organization Address City/State/[place]IP [place] [address] (ABNORMAL) BLOOD GAS 2 ARTERIAL (07/07/2017 4:05 PM EST) Analysis Performed At Patho logist Time Signature pH Art 7.36 7.35 - [facility] 7.45 [facility]ORY pCO2 Art 40 35 - 45 [facility] LABORATORY pO2 Art 282 (H) 85 - 104 [facility] LABORATORY HCO3 Art 22.1 20.0 - [facility] 26.[address] [facility] mmol/L [facility] BE Art -3.4 (L) -3.0 - 3.0 [facility] mmol/L [facility] Hgb Blood Gas 10.2 (L) 13.7 - [facility] 16.5 gm/dL [facility] O2HB Art 98.4 (H) 94.0 - [facility] 97.0 % [facility] COHB Art 0.3 % [facility] Comment: Nonsmokers: 0.5-1.5% COHB Smokers: Variable, but usually less than 10% Toxic: 20-30% COHB Lethal: Greater than 60% COHB METHB Art 0.3 <=1.5 % [facility] LABORATORY [...] Blood 0.86 (Critical) 1.15 - 1.33 mmol/L [facility] Comment: Noted by air quality instrument specialist. Note: ??Total bilirubin higher than 20 m [...] Organization Address City/State/Z[place] [address] (ABNORMAL) BLOOD GAS 2 ARTERIAL (07/07/2017 2:29 PM EST) Analysis Performed At Patho logist Time Signature pH Art 7.43 7.35 - [facility] 7.45 [facility] pCO2 Art 36 35 - 45 [facility] mmHg [facility] pO2 Art 221 (H) 85 - 104 [facility] LABORATORY HCO3 Art 23.2 20.0 - [facility] 26.[address] [facility] mmol/L [facility] BE Art -1.2 -3.0 - 3.0 [facility] mmol/L [facility] Hgb Blood Gas 13.9 13.7 - [facility] 16.5 gm/dL [facility] O2HB Art 97.8 (H) 94.0 - [facility] 97.0 % [facility] COHB Art 1.1 % [facility] Comment: Nonsmokers: 0.5-1.5% COHB Smokers: Variable, but usually less than 10% Toxic: 20-30% COHB Lethal: Greater than 60% COHB METHB Art 0.3 <=1.5 % [facility]ORATORY Na Whole Blood 139 135 - 145 mmol/L [facility] K Whole Blood 4.0 3.5 - 5.0 mmol/L [facility] Comment: Please note: Patients with WBC >100,000 may have falsely elevated Potassium levels. Contact the Clinical Chemistry L aboratory if there are any questions. ICa Whole Blood 1.11 (L) 1.15 - 1.33 mmol/L [facility] Comment: Note: ??Total bilirubin higher than 20 m g/dL may lead to falsely low ionized calcium. CL Whole Blood 104 98 - 107 mmol/L [facility] Gluc Whole Bld 184 [...] Shahid MD CHEMISTRY ORDERABLES Performing Organization Address City/[facility] [place] [address] Prepare Coag Factors (Non-Hemophilia) (07/07/2017 1:25 PM EST) P athologist Signature Dispensed? Yes [facility]OR[facility]ORY Specimen Anatomical Collection Method Collection Time Receive d Time (Source) Location / / Volume Laterality Blood specimen 07/07/2017 1:25 PM 017 1:21 (specimen) EST PM EST Daphne Shahid MD BLOOD BANK ORDERABLES Performing Organization Address City/[facility] [place] [address] Prepare RBC (07/07/2017 1:10 PM EST) P athologist Signature Dispensed? Yes [facility] Specimen Anatomical Collection Method Collection Time Receive d Time (Source) Location / / Volume Laterality Blood specimen 07/07/2017 1:10 PM 017 1:05 (specimen) EST PM EST Daphne Shahid MD BLOOD BANK ORDERABLES Performing Organization Address City/[facility]/ZIP Code Phon e Number [address] POCT Glucose (07/07/2017 11:56 AM EST) P athologist Signature POC Glucose 188 65 - 199 [place] mg/dL [facility] Comment: Supplemental ranges: <140 mg/dL before meals <180 mg/dL all other times of the day Specimen Anatomical Collection Method Collection Time Receive d Time (Source) Location / / Volume Laterality Blood specimen 07/07/2017 11:56 7 (specimen) AM EST 11:56 AM EST Daphne Shahid MD POINT OF CARE TEST ORDERABLE S Performing Organization Address City/[facility]/ZIP Code Phon e Number [address] POCT Glucose (07/07/2017 11:05 AM EST) athologist Signature POC Glucose 168 65 - 199 [place] mg/dL [facility] Comment: Supplemental ranges: <140 mg/dL before meals <180 mg/dL all other times of the day Specimen Anatomical Collection Method Collection Time Receive d Time (Source) Location / / Volume Laterality Blood specimen 07/07/2017 11:05 7 (specimen) AM EST 11:05 AM EST Daphne Shahid MD POINT OF CARE TEST ORDERABLE S Performing Organization Address City/State/[place] [address] POCT Glucose (07/07/2017 10:02 AM EST) P athologist Signature POC Glucose 191 65 - 199 [place] mg/dL [facility] Comment: Supplemental ranges: <140 mg/dL before meals <180 mg/dL all other times of the day Specimen Anatomical Collection Method Collection Time Receive d Time (Source) Location / / Volume Laterality Blood specimen 07/07/2017 10:02 7 (specimen) AM EST 10:02 AM EST Daphne Shahid MD POINT OF CARE TEST ORDERABLE S Performing Organization Address City/[facility]/ZIP Code Phon e Number [address] POCT Glucose (07/07/2017 7:53 AM EST) P athologist Signature POC Glucose 178 65 - 199 [place] ZHAORYAN mg/dL [facility] Comment: Supplemental ranges: <140 mg/dL before meals <180 mg/dL all other times of the day Specimen Anatomical Collection Method Collection Time Receive d Time (Source) Location / / Volume Laterality Blood specimen 07/07/2017 7:53 AM 017 7:53 (specimen) EST AM EST Daphne Shahid MD POINT OF CARE TEST ORDERABLE S Performing Organization Address City/[facility]/ZIP Code Phon e Number [address] POCT Glucose (07/07/2017 7:03 AM EST) athologist Signature POC Glucose 188 65 - 199 [place] ZHAORYAN mg/dL [facility] Comment: Supplemental ranges: <140 mg/dL before meals <180 mg/dL all other times of the day Specimen Anatomical Collection Method Collection Time Receive d Time (Source) Location / / Volume Laterality Blood specimen 07/07/2017 7:03 AM 017 7:03 (specimen) EST AM EST Daphne Shahid MD POINT OF CARE TEST ORDERABLE S Performing Organization Address City/[facility]/[place] [address] (ABNORMAL) POCT Glucose (07/07/2017 6:17 AM EST) P athologist Signature POC Glucose 207 (H) 65 - 199 [place] mg/dL [facility] Comment: Supplemental ranges: <140 mg/dL before meals <180 mg/dL all other times of the day Specimen Anatomical Collection Method Collection Time Receive d Time (Source) Location / / Volume Laterality Blood specimen 07/07/2017 6:17 AM 017 6:17 (specimen) EST AM EST Daphne Shahid MD POINT OF CARE TEST ORDERABLE S Performing Organization Address City/State/ZIP Code Phon e Number [address] Differential, Automated (07/07/2017 5:15 AM EST) P athologist Signature Neutrophils % 69.7 % [facility] Neutr Abs (ANC) 5.32 1.70 - [facility] 6.[address] [facility] x10(3)/[facility] LABORATORY Lymphocytes % 16.3 % [facility] LABORATORY Lymphocytes Abs 1.2 0.9 - 3.2 [facility] x10(3)/[facility] LABORATORY Monocytes % 10.5 % [facility] LABORATORY Monocyte Abs 0.8 0.3 - 0.9 [facility] x10(3)/[facility] LABORATORY Eosinophils % 2.5 % [facility] LABORATORY Eosinophils Abs 0.2 0.0 - 0.4 [facility] x10(3)/[facility] LABORATORY Basophils % 0.7 % [facility] LABORATORY Basophils Abs 0.0 0.0 - 0.1 [facility] x10(3)/[facility] LABORATORY Immature Gran % 0.30 % [place] [...] Melisa Gran Abs 0.02 0.00 - 0.04 x10(3)/[facility] LABORATORY Specimen Anatomical Collection Method Collection Time Receive d Time (Source) Location / / Volume Laterality Blood specimen 07/07/2017 5:15 AM 017 5:34 (specimen) EST AM EST Resulting Agency Comment Spec In Lab Daphne Shahid MD HEMATOLOGY ORDERABLES Performing Organization Address City/State/ZIP Code Phon e Number [address] (ABNORMAL) Hemogram (07/07/2017 5:15 AM EST) Analysis Performed At Patho logist Time Signature WBC 7.6 4.0 - 9.5 [facility] x10(3)/[facility] LABORATORY RBC 4.82 4.58 - [place] 5.[address] [facility] x10(6)/[facility] LABORATORY Hemoglobin 14.4 13.7 - [facility] gm/dL [facility] Hematocrit 42.1 40.5 - [facility] 48.5 % [facility] MCV 87.3 82.9 - [facility] 93.1 [facility] LABORATORY MCH 29.9 27.5 - [facility] 32.1 pg [facility] MCHC 34.2 32.0 - [facility] 35.7 gm/dL [facility] Platelets 188 145 - 357 [facility] x10(3)/[facility] LABORATORY RDWSD 45.1 (H) 36.0 - [facility] 45.0 [facility] LABORATORY RDWCV 14.3 (H) 11.4 - [facility] 13.8 % [facility] LABORATORY MPV 9.4 7.6 - 12.9 [facility] LABORATORY nRBC % Auto 0.0 % [facility] LABORATORY nRBC Abs Auto 0.000 0.000 - [facility] 0.[address] [facility] x10(3)/[facility] LABORATORY Specimen Anatomical Collection Method Collection Time Receive d Time (Source) Location / / Volume Laterality Blood specimen 07/07/2017 5:15 AM 017 5:34 (specimen) EST AM EST Resulting Agency Comment Spec In Lab Daphne Shahid MD HEMATOLOGY ORDERABLES Performing Organization Address City/State/ZIP [place] [address] (ABNORMAL) APTT (07/07/2017 5:15 AM EST) P athologist Signature PTT 69 (H) 25 - 35 sec [facility] Comment: The recommended therapeutic range for fu ll dose, unfractionated heparin at [facility] is 80 ? 114 seconds. The use [...] Shahid MD HEMATOLOGY ORDERABLES Performing Organization Address City/[facility]/ZIP Code Phon e Number [address] Magnesium (07/07/2017 5:15 AM EST) athologist Signature Magnesium 0.94 0.69 - 1.07 [facility] mmol/L [facility] LABORATORY Specimen Anatomical Collection Method Collection Time Receive d Time (Source) Location / / Volume Laterality Blood specimen 07/07/2017 5:15 AM 017 5:34 (specimen) EST AM EST Resulting Agency Comment Spec In Lab Daphne Shahid MD CHEMISTRY ORDERABLES Performing Organization Address City/[facility]/[place] [address] (ABNORMAL) Basic Metabolic Panel (non-fasting) (07/07/2017 5:15 AM EST) athologist Signature Glucose Lvl 203 (H) 65 - 199 [facility] mg/dL [facility] Comment: Diabetes: >=200 mg/dL plus symp toms BUN 15 10 - 20 mg/dL [facility] LABORATORY Creatinine 1.09 0.80 [...] 107 mmol/L [facility]OR[facility]ORY CO2 26 22 - 31 mmol/L [facility] LABOR[facility] Anion Gap 14 5 - 15 mmol/L [facility] LABORATORY Calcium 8.6 8.5 - 10.5 mg/dL [facility] LABORATORY Estimated GFR >60 >=60 [facility] LABORATORY Comment: The reported eGFR should be multiplied b y 1.2 for patients. The MDRD is not an appropriate measure o f renal function for patients with body mass extremes or in patients with acute kidney failure. http://[employer]/DHnkdep [email or web address]/DHMCnkf Specimen Anatomical Collection Method Collection Time Receive d Time (Source) Location / / Volume Laterality Blood specimen 07/07/2017 5:15 AM 017 5:34 (specimen) EST AM EST Resulting Agency Comment Spec In Lab Daphne Shahid MD CHEMISTRY ORDERABLES Performing Organization Address City/State/ZIP [place] [address] (ABNORMAL) Cardiac Enzymes (LEB/CGP) (07/07/2017 5:15 AM EST) P athologist Signature Troponin-T 2.07 (H) 0.00 - [facility] 0.00 ng/mL [facility] Comment: The 99th percentile for Troponin T is le ss than 0.01 ng/mL, any detectable cTnT concentration using this assay should be considered elevated. According to the third universal definit ion of myocardial infarction the following criteria with a clinical prese ntation consistent with acute myocardial ischemia meets the diagnosis for a myocardial infarction (NC). Detection of a rise and/or fall of [...] additional sample may be indicated. Reference: Third Pinon Definition of Myocardial Infarction. Journal of the [employer] College [employer] 2012;60:1581-98 CK, Total 88 0 - 200 unit/L [facility] LABORATORY Specimen Anatomical Collection Method Collection Time Receive d Time (Source) Location / / Volume Laterality Blood specimen 07/07/2017 5:15 AM 017 5:34 (specimen) EST AM EST Resulting Agency Comment Spec In Lab Daphne Shahid MD CHEMISTRY ORDERABLES Performing Organization Address City/[facility]/ZIP Code Phon e Number [address] POCT Glucose (07/07/2017 5:01 AM EST) athologist Signature POC Glucose 182 65 - 199 [facility] Comment: Supplemental ranges: <140 mg/dL before meals <180 mg/dL all other times of the day Specimen Anatomical Collection Method Collection Time Receive d Time (Source) Location / / Volume Laterality Blood specimen 07/07/2017 5:01 AM 017 5:01 (specimen) EST AM EST Daphne Shahid MD POINT OF CARE TEST ORDERABLE S Performing Organization Address City/[facility]/ZIP Code Phon e Number [address] POCT Glucose (07/07/2017 4:08 AM EST) athologist Signature POC Glucose 199 65 - 199 [facility]/dL [facility] Comment: Supplemental ranges: <140 mg/dL before meals <180 mg/dL all other times of the day Specimen Anatomical Collection Method Collection Time Receive d Time (Source) Location / / Volume Laterality Blood specimen 07/07/2017 4:08 AM 017 4:08 (specimen) EST AM EST Daphne Shahid MD POINT OF CARE TEST ORDERABLE S Performing Organization Address City/[facility]/[place] [address] POCT Glucose (07/07/2017 3:03 AM EST) athologist Signature POC Glucose 188 65 - 199 [facility] mg/dL [facility] Comment: Supplemental ranges: <140 mg/dL before meals <180 mg/dL all other times of the day Specimen Anatomical Collection Method Collection Time Receive d Time (Source) Location / / Volume Laterality Blood specimen 07/07/2017 3:03 AM 017 3:03 (specimen) EST AM EST Daphne Shahid MD POINT OF CARE TEST ORDERABLE S Performing Organization Address City/State/[place] [address] (ABNORMAL) POCT Glucose (07/07/2017 2:08 AM EST) athologist Signature POC Glucose 200 (H) 65 - 199 [facility]dL [facility] Comment: Supplemental ranges: <140 mg/dL before meals <180 mg/dL all other times of the day Specimen Anatomical Collection Method Collection Time Receive d Time (Source) Location / / Volume Laterality Blood specimen 07/07/2017 2:08 AM 017 2:08 (specimen) EST AM EST Daphne Shahid MD POINT OF CARE TEST ORDERABLE S Performing Organization Address City/State/[place] [address] (ABNORMAL) POCT Glucose (07/07/2017 1:31 AM EST) athologist Signature POC Glucose 209 (H) 65 - 199 [facility] mg/dL [facility] Comment: Supplemental ranges: <140 mg/dL before meals <180 mg/dL all other times of the day Specimen Anatomical Collection Method Collection Time Receive d Time (Source) Location / / Volume Laterality Blood specimen 07/07/2017 1:31 AM 017 1:31 (specimen) EST AM EST Daphne Shahid MD POINT OF CARE TEST ORDERABLE S Performing Organization Address City/State/[place] [address] XR Chest PA or [...] POC Glucose 161 65 - 199 [facility] mg/dL [facility] Comment: Supplemental ranges: <140 mg/dL before meals <180 mg/dL all other times of the day Specimen Anatomical Collection Method Collection Time Receive d Time (Source) Location / / Volume Laterality Blood specimen 07/07/2017 12:07 7 (specimen) AM EST 12:07 AM EST Daphne Shahid MD POINT OF CARE TEST ORDERABLE S Performing Organization Address City/State/ZIP [place] [address] (ABNORMAL) APTT (07/07/2017 12:00 AM EST) athologist Signature PTT 103 (H) 25 - 35 sec [facility] Comment: The recommended therapeutic range for fu ll dose, unfractionated heparin at [facility] is 80 ? 114 seconds. The use [...] Shahid MD HEMATOLOGY ORDERABLES Performing Organization Address City/[facility]/ZIP Code Phon e Number [address] POCT Glucose (07/06/2017 9:55 PM EST) athologist Signature POC Glucose 109 65 - 199 [facility]dL [facility] Comment: Supplemental ranges: <140 mg/dL before meals <180 mg/dL all other times of the day Specimen Anatomical Collection Method Collection Time Receive d Time (Source) Location / / Volume Laterality Blood specimen 07/06/2017 9:55 PM 017 9:55 (specimen) EST PM EST Daphne Shahid MD POINT OF CARE TEST ORDERABLE S Performing Organization Address City/[facility]/ZIP Code Phon e Number [address] POCT Glucose (07/06/2017 9:04 PM EST) athologist Signature POC Glucose 120 65 - 199 [facility] mg/dL [facility] Comment: Supplemental ranges: <140 mg/dL before meals <180 mg/dL all other times of the day Specimen Anatomical Collection Method Collection Time Receive d Time (Source) Location / / Volume Laterality Blood specimen 07/06/2017 9:04 PM 017 9:04 (specimen) EST PM EST Daphne Shahid MD POINT OF CARE TEST ORDERABLE S Performing Organization Address City/State/ZIP Code Phon e Number [address] POCT Glucose (07/06/2017 7:45 PM EST) athologist Signature POC Glucose 158 65 - 199 [place] mg/dL [facility] Comment: Supplemental ranges: <140 mg/dL before meals <180 mg/dL all other times of the day Specimen Anatomical Collection Method Collection Time Receive d Time (Source) Location / / Volume Laterality Blood specimen 07/06/2017 7:45 PM 017 7:45 (specimen) EST PM EST Daphne Shahid MD POINT OF CARE TEST ORDERABLE S Performing Organization Address City/[facility]/ZIP Code Phon e Number [address] Potassium (07/06/2017 7:40 PM EST) athologist [facility] Potassium 3.9 3.5 - 5.0 [facility] mmol/L [facility] Comment: Please note: ??Patients [...] Shahid MD CHEMISTRY ORDERABLES Performing Organization Address City/[facility]/[place] [address] (ABNORMAL) Cardiac Enzymes (LEB/CGP) (07/06/2017 7:40 PM EST) athologist Signature Troponin-T 2.27 (H) 0.00 - [place] DAVIS 0.00 ng/mL [facility] Comment: The 99th percentile for Troponin T is le ss than 0.01 ng/mL, any detectable cTnT concentration using this assay should be considered elevated. According to the third universal definit ion of myocardial infarction the following criteria with a clinical prese ntation consistent with acute myocardial ischemia meets the diagnosis for a myocardial infarction (NC). Detection of a rise and/or fall of [...] additional sample may be indicated. Reference: Third Pinon Definition of Myocardial Infarction. Journal of the [employer] College [employer] Cardiology 2012;60:1581-98 CK, Total 93 0 - 200 unit/L [facility]OR[facility]ORY Specimen Anatomical Collection Method Collection Time Receive d Time (Source) Location / / Volume Laterality Blood specimen 07/06/2017 7:40 PM 017 7:52 (specimen) EST PM EST Resulting Agency Comment Spec In Lab Daphne Shahid MD CHEMISTRY ORDERABLES Performing Organization Address City/State/[place] [address] (ABNORMAL) POCT Glucose (07/06/2017 7:13 PM EST) P athologist Signature POC Glucose 200 (H) 65 - 199 [facility] mg/dL [facility] Comment: Supplemental ranges: <140 mg/dL before meals <180 mg/dL all other times of the day Specimen Anatomical Collection Method Collection Time Receive d Time (Source) Location / / Volume Laterality Blood specimen 07/06/2017 7:13 PM 017 7:13 (specimen) EST PM EST Daphne Shahid MD POINT OF CARE TEST ORDERABLE S Performing Organization Address City/State/[place] [address] (ABNORMAL) APTT (07/06/2017 6:15 PM EST) athologist Signature PTT 94 (H) 25 - 35 sec [facility] Comment: The recommended therapeutic range for fu ll dose, unfractionated heparin at [facility] is 80 ? 114 seconds. The use [...] Address City/State/ZIP Code Phon e Number [address] (ABNORMAL) POCT Glucose (07/06/2017 6:03 PM EST) athologist Signature POC Glucose 236 (H) 65 - 199 [facility] Comment: Supplemental ranges: <140 mg/dL before meals <180 mg/dL all other times of the day Specimen Anatomical Collection Method Collection Time Receive d Time (Source) Location / / Volume Laterality Blood specimen 07/06/2017 6:03 PM 017 6:03 (specimen) EST PM EST Daphne Shahid MD POINT OF CARE TEST ORDERABLE S Performing Organization Address City/[facility]/[place] [address] (ABNORMAL) POCT Glucose (07/06/2017 5:01 PM EST) athologist Signature POC Glucose 235 (H) 65 - 199 [facility] mg/dL [facility] Comment: Supplemental ranges: <140 mg/dL before meals <180 mg/dL all other times of the day Specimen Anatomical Collection Method Collection Time Receive d Time (Source) Location / / Volume Laterality Blood specimen 07/06/2017 5:01 PM 017 5:01 (specimen) EST PM EST Daphne Shahid MD POINT OF CARE TEST ORDERABLE S Performing Organization Address City/State/ZIP Code Ph[place] [address] (ABNORMAL) POCT Glucose (07/06/2017 4:06 PM EST) athologist Signature POC Glucose 202 (H) 65 - 199 [facility] mg/dL [facility] Comment: Supplemental ranges: <140 mg/dL before meals <180 mg/dL all other times of the day Specimen Anatomical Collection Method Collection Time Receive d Time (Source) Location / / Volume Laterality Blood specimen 07/06/2017 4:06 PM 017 4:06 (specimen) EST PM EST Daphne Shahid MD POINT OF CARE TEST ORDERABLE S Performing Organization Address City/State/ZIP Code Phon e Number [address] POCT Glucose (07/06/2017 2:59 PM EST) athologist Signature POC Glucose 178 65 - 199 [facility] Comment: Supplemental ranges: <140 mg/dL before meals <180 mg/dL all other times of the day Specimen Anatomical Collection Method Collection Time Receive d Time (Source) Location / / Volume Laterality Blood specimen 07/06/2017 2:59 PM 017 2:59 (specimen) EST PM EST Daphne Shahid MD POINT OF CARE TEST ORDERABLE S Performing Organization Address City/State/[place] [address] (ABNORMAL) Cardiac Enzymes (LEB/CGP) (07/06/2017 2:10 PM EST) athologist Signature Troponin-T 2.34 (H) 0.00 - [place] OLIVASCK 0.00 ng/mL [facility] Comment: The 99th percentile for Troponin T is le ss than 0.01 ng/mL, any detectable cTnT concentration using this assay should be considered elevated. According to the third universal definit ion of myocardial infarction the following criteria with a clinical prese ntation consistent with acute myocardial ischemia meets the diagnosis for a myocardial infarction (NC). Detection of a rise and/or fall of [...] additional sample may be indicated. Reference: Third Pinon Definition of Myocardial Infarction. Journal of the French College of Cardiology 2012;60:1581-98 CK, Total 101 0 - 200 unit/L [facility] Specimen Anatomical Collection Method Collection Time Receive d Time (Source) Location / / Volume Laterality Blood specimen 07/06/2017 2:10 PM 017 2:26 (specimen) EST PM EST Resulting Agency Comment Spec In Lab Daphne Shahid MD CHEMISTRY ORDERABLES Performing Organization Address City/[facility]/ZIP Code Phon e Number [address] POCT Glucose (07/06/2017 2:08 PM EST) athologist Signature POC Glucose 192 65 - 199 [facility]dL [facility] Comment: Supplemental ranges: <140 mg/dL before meals <180 mg/dL all other times of the day Specimen Anatomical Collection Method Collection Time Receive d Time (Source) Location / / Volume Laterality Blood specimen 07/06/2017 2:08 PM 017 2:08 (specimen) EST PM EST Daphne Shahid MD POINT OF CARE TEST ORDERABLE S Performing Organization Address City/[facility]/ZIP [facility] Phon e Number [address] POCT Glucose (07/06/2017 1:04 PM EST) athologist Signature POC Glucose 162 65 - 199 [facility]dL [facility] Comment: Supplemental ranges: <140 mg/dL before meals <180 mg/dL all other times of the day Specimen Anatomical Collection Method Collection Time Receive d Time (Source) Location / / Volume Laterality Blood specimen 07/06/2017 1:04 PM 017 1:04 (specimen) EST PM EST Daphne Shahid MD POINT OF CARE TEST ORDERABLE S Performing Organization Address City/State/[place] [address] POCT Glucose (07/06/2017 12:05 PM EST) P athologist Signature POC Glucose 196 65 - 199 [facility] mg/dL [facility] Comment: Supplemental ranges: <140 mg/dL before meals <180 mg/dL all other times of the day Specimen Anatomical Collection Method Collection Time Receive d Time (Source) Location / / Volume Laterality Blood specimen 07/06/2017 12:05 7 (specimen) PM EST 12:05 PM EST Daphne Shahid MD POINT OF CARE TEST ORDERABLE S Performing Organization Address City/[facility]/[place] [address] EKG 12 Lead (07/06/2017 12:00 PM EST) Component Value Ref Range Test Analysis Performed Pathologis t Method Time At Signature Ventricular rate 91 BPM MUSE SYSTEM Atrial Rate 91 BPM MUSE SYSTEM P-R Interval 140 ms MUSE SYSTEM QRS Duration 94 ms MUSE SYSTEM Q-T Interval 394 ms MUSE SYSTEM QTC Calculated 484 ms MUSE SYSTEM (Bezet) Calculated P [place] 36 degrees MUSE SYSTEM Calculated R [place] -19 degrees MUSE SYSTEM Calculated T [place] 104 degrees MUSE SYSTEM INTERPRETATION Normal sinus rhythm MUSE SYSTEM 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) ST & T wave abnormality, consider lateral ischemia Abnormal ECG When compared with ECG of 05-JUL-2017 20:39, No significant change was found Confirmed by MD Luci, Taurus Braun ([id number]) on 07/06/2017 5:07:33 PM Specimen Anatomical Collection Method Collection Time Receive d Time (Source) Location / / Volume Laterality 07/06/2017 12:00 07/06/2017 5:07 PM EST PM EST Daphne Shahid MD ECG ORDERABLES Performing Organization Address City/State/ZIP Code Phon e Number MUSE SYSTEM ABORH Recheck Status (07/06/2017 12:00 PM EST) [facility] Method Time Signature ABORH Type Completed [facility] LABORATORY Specimen Anatomical Collection Method Collection Time Receive d Time (Source) Location / / Volume Laterality Blood specimen 07/06/2017 12:00 7 (specimen) PM EST 12:24 PM EST Resulting Agency Comment Spec In Lab Daphne Shahid MD BLOOD BANK ORDERABLES Performing Organization Address City/State/[place] [address] Antibody screen (07/06/2017 12:00 PM EST) [facility] Method Time Signature Ab Screen Negative [facility] LABORATORY Expires at 07/09/2017 [facility] [id number] on: [facility] Specimen Anatomical Collection Method Collection Time Receive d Time (Source) Location / / Volume Laterality Blood specimen 07/06/2017 12:00 7 (specimen) PM EST 12:24 PM EST Resulting Agency Comment Spec In Lab Daphne Shahid MD BLOOD BANK ORDERABLES Performing Organization Address City/State/[place] [address] ABO/Rh Typing (07/06/2017 12:00 [...] Organization Address City/State/[place] [address] Prothrombin Time (07/06/2017 11:24 AM EST) P athologist Signature PT 13.3 11.8 - 14.0 [facility] LABORATORY INR 1.0 0.9 - 1.1 [facility] LABORATORY [...] Shahid MD HEMATOLOGY ORDERABLES Performing Organization Address City/[facility]/ZIP Code Phon e Number [address] (ABNORMAL) APTT (07/06/2017 11:24 AM EST) P athologist Signature PTT 52 (H) 25 - 35 sec [facility] Comment: The recommended therapeutic range for fu ll dose, unfractionated heparin at [facility] is 80 ? 114 seconds. The use [...] Shahid MD HEMATOLOGY ORDERABLES Performing Organization Address City/[facility]/[place] [address] POCT Glucose (07/06/2017 11:02 AM EST) P athologist Signature POC Glucose 187 65 - 199 [facility] mg/dL [facility] Comment: Supplemental ranges: <140 mg/dL before meals <180 mg/dL all other times of the day Specimen Anatomical Collection Method Collection Time Receive d Time (Source) Location / / Volume Laterality Blood specimen 07/06/2017 11:02 7 (specimen) AM EST 11:02 AM EST Daphne Shahid MD POINT OF CARE TEST ORDERABLE S Performing Organization Address City/State/ZIP Code Phon e Number [address] POCT Glucose (07/06/2017 10:18 AM EST) athologist Signature POC Glucose 193 65 - 199 [place] ZHAORYAN mg/dL [facility] Comment: Supplemental ranges: <140 mg/dL before meals <180 mg/dL all other times of the day Specimen Anatomical Collection Method Collection Time Receive d Time (Source) Location / / Volume Laterality Blood specimen 07/06/2017 10:18 7 (specimen) AM EST 10:18 AM EST Daphne Shahid MD POINT OF CARE TEST ORDERABLE S Performing Organization Address City/[facility]/ZIP Code Phon e Number [address] POCT Glucose (07/06/2017 9:25 AM EST) athologist Signature POC Glucose 182 65 - 199 [facility]/dL [facility] Comment: Supplemental ranges: <140 mg/dL before meals <180 mg/dL all other times of the day Specimen Anatomical Collection Method Collection Time Receive d Time (Source) Location / / Volume Laterality Blood specimen 07/06/2017 9:25 AM 017 9:25 (specimen) EST AM EST Daphne Shahid MD POINT OF CARE TEST ORDERABLE S Performing Organization Address City/[facility]/[place] [address] (ABNORMAL) Cardiac Enzymes (LEB/CGP) (07/06/2017 8:10 AM EST) athologist Signature Troponin-T 2.26 (H) 0.00 - [place] [facility] 0.00 ng/mL [facility] Comment: The 99th percentile for Troponin T is le ss than 0.01 ng/mL, any detectable cTnT concentration using this assay should be considered elevated. According to the third universal definit ion of myocardial infarction the following criteria with a clinical prese ntation consistent with acute myocardial ischemia meets the diagnosis for a myocardial infarction (NC). Detection of a rise and/or fall of [...] additional sample may be indicated. Reference: Third Pinon Definition of Myocardial Infarction. Journal of the [employer] College of Cardiology 2012;60:1581-98 CK, Total 124 0 - 200 unit/L [facility] Specimen Anatomical Collection Method Collection Time Receive d Time (Source) Location / / Volume Laterality Blood specimen 07/06/2017 8:10 AM 017 8:23 (specimen) EST AM EST Resulting Agency Comment Spec In Lab Daphne Shahid MD CHEMISTRY ORDERABLES Performing Organization Address City/State/ZIP Code Phon e Number [address] Magnesium (07/06/2017 8:10 AM EST) P athologist Signature Magnesium 0.84 0.69 - 1.07 [facility] mmol/L [facility] Specimen Anatomical Collection Method Collection Time Receive d Time (Source) Location / / Volume Laterality Blood specimen 07/06/2017 8:10 AM 017 8:21 (specimen) EST AM EST Resulting Agency Comment Spec In Lab Daphne Shahid MD CHEMISTRY ORDERABLES Performing Organization Address City/[facility]/ZIP Code Phon e Number [address] (ABNORMAL) Basic Metabolic Panel (non-fasting) (07/06/2017 8:10 AM EST) P athologist Signature Glucose Lvl 199 65 - 199 [facility] Comment: Diabetes: >=200 mg/dL plus symp toms BUN 16 10 - 20 mg/dL [facility] LABORATORY Creatinine 1.04 0.80 [...] 107 mmol/L [facility] CO2 27 22 - 31 mmol/L [facility] Anion Gap 13 5 - 15 mmol/L [facility] LAB[facility]ORY Calcium 8.1 (L) 8.5 - 10.5 mg/dL [facility] LABORATORY Estimated GFR >60 >=60 [facility] Comment: The reported eGFR should be multiplied b y 1.2 for patients. The MDRD is not an appropriate measure o f renal function for patients with body mass extremes or in patients with acute kidney failure. http://STEGOSYSTEMS.nubelo/DHnkdep http://Guang Lian Shi Dai/DHMCnkf Specimen Anatomical Collection Method Collection Time Receive d Time (Source) Location / / Volume Laterality Blood specimen 07/06/2017 8:10 AM 017 8:21 (specimen) EST AM EST Resulting Agency Comment Spec In Lab Daphne Shahid MD CHEMISTRY ORDERABLES Performing Organization Address City/State/ZIP [place] [address] POCT Glucose (07/06/2017 7:34 AM EST) P athologist Signature POC Glucose 198 65 - 199 [facility] mg/dL [facility] Comment: Supplemental ranges: <140 mg/dL before meals <180 mg/dL all other times of the day Specimen Anatomical Collection Method Collection Time Receive d Time (Source) Location / / Volume Laterality Blood specimen 07/06/2017 7:34 AM 017 7:34 (specimen) EST AM EST Daphne Shahid MD POINT OF CARE TEST ORDERABLE S Performing Organization Address City/State/ZIP Code Phon e Number [address] POCT Glucose (07/06/2017 7:03 AM EST) P athologist Signature POC Glucose 181 65 - 199 [facility] mg/dL [facility] Comment: Supplemental ranges: <140 mg/dL before meals <180 mg/dL all other times of the day Specimen Anatomical Collection Method Collection Time Receive d Time (Source) Location / / Volume Laterality Blood specimen 07/06/2017 7:03 AM 017 7:03 (specimen) EST AM EST Daphne Shahid MD POINT OF CARE TEST ORDERABLE S Performing Organization Address City/State/[place] [address] XR Chest PA or [...] appears simil ar. Mild interstitial edema. Daphne Sahhid MD IMG DX ORDERABLES POCT Glucose (07/06/2017 6:21 AM EST) athologist Signature POC Glucose 172 65 - 199 [facility] mg/dL [facility] Comment: Supplemental ranges: <140 mg/dL before meals <180 mg/dL all other times of the day Specimen Anatomical Collection Method Collection Time Receive d Time (Source) Location / / Volume Laterality Blood specimen 07/06/2017 6:21 AM 017 6:21 (specimen) EST AM EST Daphne Shahid MD POINT OF CARE TEST ORDERABLE S Performing Organization Address City/State/[place] [address] POCT Glucose (07/06/2017 5:08 AM EST) athologist Signature POC Glucose 154 65 - 199 [facility] mg/dL [facility] Comment: Supplemental ranges: <140 mg/dL before meals <180 mg/dL all other times of the day Specimen Anatomical Collection Method Collection Time Receive d Time (Source) Location / / Volume Laterality Blood specimen 07/06/2017 5:08 AM 017 5:08 (specimen) EST AM EST Daphne Shahid MD POINT OF CARE TEST ORDERABLE S Performing Organization Address City/State/[place] [address] POCT Glucose (07/06/2017 4:05 AM EST) athologist Signature POC Glucose 142 65 - 199 [facility] Comment: Supplemental ranges: <140 mg/dL before meals <180 mg/dL all other times of the day Specimen Anatomical Collection Method Collection Time Receive d Time (Source) Location / / Volume Laterality Blood specimen 07/06/2017 4:05 AM 017 4:05 (specimen) EST AM EST Daphne Shahid MD POINT OF CARE TEST ORDERABLE S Performing Organization Address City/[facility] Phon e Number [address] POCT Glucose (07/06/2017 3:00 AM EST) athologist Signature POC Glucose 116 65 - 199 [facility]dL [facility] Comment: Supplemental ranges: <140 mg/dL before meals <180 mg/dL all other times of the day Specimen Anatomical Collection Method Collection Time Receive d Time (Source) Location / / Volume Laterality Blood specimen 07/06/2017 3:00 AM 017 3:00 (specimen) EST AM EST Daphne Shahid MD POINT OF CARE TEST ORDERABLE S Performing Organization Address City/[facility] [place] [address] Potassium (07/06/2017 2:20 AM EST) athologist Signature Potassium 3.9 3.5 - 5.0 [facility] mmol/L [facility] Comment: Please note: ??Patients [...] City/State/ZIP Code Phon e Number [place] [id number] Differential, Automated (07/06/2017 2:20 AM EST) P athologist Signature Neutrophils % 72.9 % [facility]OR[facility] Neutr Abs (ANC) 5.53 1.70 - [facility] 6.[address] [facility] x10(3)/[facility] LABORATORY Lymphocytes % 16.4 % [facility]OR[facility]ORY Lymphocytes Abs 1.2 0.9 - 3.2 [facility] x10(3)/[facility] LABORATORY Monocytes % 9.4 % [facility] LABORATORY Monocyte Abs 0.7 0.3 - 0.9 [facility] x10(3)/[facility] LABORATORY Eosinophils % 0.5 % [facility] LABOR[facility]ORY Eosinophils Abs 0.0 0.0 - 0.4 [facility] x10(3)/[facility] LABORATORY Basophils % 0.4 % [facility]ORATORY Basophils Abs 0.0 0.0 - 0.1 [facility] x10(3)/[facility] LABORATORY Immature Gran % 0.40 % [facility] [...] - 0.04 x10(3)/[facility] LABORATORY Specimen Anatomical Collection Method Collection Time Receive d Time (Source) Location / / Volume Laterality Blood specimen 07/06/2017 2:20 AM 017 2:33 (specimen) EST AM EST Resulting Agency Comment Spec In Lab Daphne Shahid MD HEMATOLOGY ORDERABLES Performing Organization Address City/State/ZIP [place] [address] (ABNORMAL) Hemogram (07/06/2017 2:20 AM EST) Analysis Performed At Patho logist Time Signature WBC 7.6 4.0 - 9.5 [facility] x10(3)/[facility] LABORATORY RBC 4.52 (L) 4.58 - [facility] 5.[address] [facility] x10(6)/[facility] LABORATORY Hemoglobin 13.4 (L) 13.7 - [facility] 16.5 gm/dL [facility] Hematocrit 39.7 (L) 40.5 - [facility] 48.5 % [facility]ORAT[facility] MCV 87.8 82.9 - [facility] 93.1 [facility] LABORATORY MCH 29.6 27.5 - [facility] 32.1 pg [facility] LABORATORY MCHC 33.8 32.0 - [facility] 35.7 gm/dL [facility] LABOR[facility]ORY Platelets 189 145 - 357 [facility] x10(3)/[facility] LABORATORY RDWSD 45.6 (H) 36.0 - [facility] 45.0 [facility] LABORATORY RDWCV 14.3 (H) 11.4 - [facility] 13.8 % [facility] LABORATORY MPV 9.1 7.6 - 12.9 [facility] LABORATORY nRBC % Auto 0.0 % [facility] LABORATORY nRBC Abs Auto 0.000 0.000 - [facility] 0.[address] [facility] x10(3)/[facility] LABORATORY Specimen Anatomical Collection Method Collection Time Receive d Time (Source) Location / / Volume Laterality Blood specimen 07/06/2017 2:20 AM 017 2:33 (specimen) EST AM EST Resulting Agency Comment Spec In Lab Daphne Shahid MD HEMATOLOGY ORDERABLES Performing Organization Address City/State/ZIP [place] [address] (ABNORMAL) APTT (07/06/2017 2:20 AM EST) P athologist Signature PTT 52 (H) 25 - 35 sec [facility] Comment: The recommended therapeutic range for fu ll dose, unfractionated heparin at [facility] is 80 ? 114 seconds. The use [...] Address City/State/ZIP Code Phon e Number [address] POCT Glucose (07/06/2017 2:20 AM EST) athologist Signature POC Glucose 115 65 - 199 [facility] mg/dL [facility] Comment: Supplemental ranges: <140 mg/dL before meals <180 mg/dL all other times of the day Specimen Anatomical Collection Method Collection Time Receive d Time (Source) Location / / Volume Laterality Blood specimen 07/06/2017 2:20 AM 017 2:20 (specimen) EST AM EST Daphne Shahid MD POINT OF CARE TEST ORDERABLE S Performing Organization Address City/[facility]/[place] [address] (ABNORMAL) Cardiac Enzymes (LEB/CGP) (07/06/2017 2:20 AM EST) athologist Signature Troponin-T 2.13 (H) 0.00 - [place] [facility] 0.00 ng/mL [facility] Comment: The 99th percentile for Troponin T is le ss than 0.01 ng/mL, any detectable cTnT concentration using this assay should be considered elevated. According to the third universal definit ion of myocardial infarction the following criteria with a clinical prese ntation consistent with acute myocardial ischemia meets the diagnosis for a myocardial infarction (NC). Detection of a rise and/or fall of [...] additional sample may be indicated. Reference: Third Pinon Definition of Myocardial Infarction. Journal of the [employer] College of Cardiology 2012;60:1581-98 CK, Total 129 0 - 200 unit/L [facility] Specimen Anatomical Collection Method Collection Time Receive d Time (Source) Location / / Volume Laterality Blood specimen 07/06/2017 2:20 AM 017 2:33 (specimen) EST AM EST Resulting Agency Comment Spec In Lab Daphne Shahid MD CHEMISTRY ORDERABLES Performing Organization Address City/State/ZIP [place] [address] (ABNORMAL) Hemoglobin A1c (07/06/2017 2:20 AM EST) Analysis Performed At Patho logist Time Signature Hemoglobin A1C 6.8 (H) 4.3 - 5.6 [facility] LABORATORY Comment: Reference Range: 4.3 - [...] Mellitus, Diabetes Care 2013; 36: Suppl. 1, R07-62 Est Avg Gluc See note mg/dL [facility] [...] with hemoglobinopathies. Additional resources are available on [facility] ADA website. Macario HAMMOND, Ruthann J, Deysi R, et al. ??Tr anslating the A1C assay into estimated average glucose values. ??Diabetes Care 2008:31(8):5099-9347. Specimen Anatomical Collection Method Collection Time Receive d Time (Source) Location / / Volume Laterality Blood specimen 07/06/2017 2:20 AM 017 2:34 (specimen) EST AM EST Resulting Agency Comment Spec In Lab Daphne Shahid MD CHEMISTRY ORDERABLES Performing Organization Address City/State/[place] [address] (ABNORMAL) Lipid Panel (07/06/2017 2:20 AM EST) [facility] Method Time Signature Chol, Total 150 <=239 [place] mg/dL [facility] LABORATORY Triglycerides 129 <=199 [place] mg/dL [facility] HDL 32 (L) >=40 [place] mg/dL [facility] LDL Cholesterol 92 <=190 [place] mg/dL [facility] Chol/HDL Ratio 4.7 ratio [facility] LABOR[facility] Lipid See Note [place] Interpretation [facility] Comment: Lipid management should be guided by a p atient? s ASCVD risk, goals and preferences. ACC/AHA Guidelines recommend high intens ity statin if clinical ASCVD or LDL greater than or equal to 190 mg/dL. [email or web address].com/JJJ-VAA-Sejgucngi Adults aged 40-75 with LDL 70-189 mg/dL should have their 10 year ASCVD risk estimated with the ACC/AHA ASCVD risk es timator http://tools.acc.org/CQNIG-Ecor-Rkypivrf r/ Statin should be discussed if risk [...] Shahid MD CHEMISTRY ORDERABLES Performing Organization Address City/[facility]/ZIP Code Phon e Number [address] POCT Glucose (07/06/2017 1:09 AM EST) athologist Signature POC Glucose 121 65 - 199 [facility]dL [facility] Comment: Supplemental ranges: <140 mg/dL before meals <180 mg/dL all other times of the day Specimen Anatomical Collection Method Collection Time Receive d Time (Source) Location / / Volume Laterality Blood specimen 07/06/2017 1:09 AM 017 1:09 (specimen) EST AM EST Daphne Shahid MD POINT OF CARE TEST ORDERABLE S Performing Organization Address City/State/[place] [address] POCT Glucose (07/06/2017 12:06 AM EST) P athologist Signature POC Glucose 147 65 - 199 [facility] mg/dL [facility] Comment: Supplemental ranges: <140 mg/dL before meals <180 mg/dL all other times of the day Specimen Anatomical Collection Method Collection Time Receive d Time (Source) Location / / Volume Laterality Blood specimen 07/06/2017 12:06 7 (specimen) AM EST 12:06 AM EST Daphne Shahid MD POINT OF CARE TEST ORDERABLE S Performing Organization Address City/State/[place] [address] (ABNORMAL) POCT Glucose (07/05/2017 10:56 PM EST) P athologist Signature POC Glucose 200 (H) 65 - 199 [facility] mg/dL [facility] Comment: Supplemental ranges: <140 mg/dL before meals <180 mg/dL all other times of the day Specimen Anatomical Collection Method Collection Time Receive d Time (Source) Location / / Volume Laterality Blood specimen 07/05/2017 10:56 7 (specimen) PM EST 10:56 PM EST Daphne Shahid MD POINT OF CARE TEST ORDERABLE S Performing Organization Address City/State/[place] [address] (ABNORMAL) POCT Glucose (07/05/2017 10:05 PM EST) P athologist Signature POC Glucose 225 (H) 65 - 199 [facility] mg/dL [facility] Comment: Supplemental ranges: <140 mg/dL before meals <180 mg/dL all other times of the day Specimen Anatomical Collection Method Collection Time Receive d Time (Source) Location / / Volume Laterality Blood specimen 07/05/2017 10:05 7 (specimen) PM EST 10:05 PM EST Daphne Shahid MD POINT OF CARE TEST ORDERABLE S Performing Organization Address City/State/[place] [address] (ABNORMAL) POCT Glucose (07/05/2017 9:02 PM EST) P athologist Signature POC Glucose 301 (H) 65 - 199 [place] mg/dL [facility] Comment: Supplemental ranges: <140 mg/dL before meals <180 mg/dL all other times of the day Specimen Anatomical Collection Method Collection Time Receive d Time (Source) Location / / Volume Laterality Blood specimen 07/05/2017 9:02 PM 017 9:02 (specimen) EST PM EST Daphne Shahid MD POINT OF CARE TEST ORDERABLE S Performing Organization Address City/State/ZIP Code Phon e Number [place] [id number] XR Chest PA or [...] 474 ms MUSE SYSTEM (Bezet) Calculated P [place] 50 degrees MUSE SYSTEM Calculated R [place] -28 degrees MUSE SYSTEM Calculated T [place] 90 degrees MUSE SYSTEM INTERPRETATION Sinus tachycardia [...] (ABNORMAL) Differential, Automated (07/05/2017 8:20 PM EST) [facility] gist Method Time Signature Neutrophils % 88.4 % [facility] LAB[facility]ORY Neutr Abs (ANC) 9.08 (H) 1.70 - [facility] 6.[address] [facility] x10(3)/[facility] L LABORATORY Lymphocytes % 7.0 % [facility] Lymphocytes Abs 0.7 (L) 0.9 - 3.2 [facility] x10(3)/[facility] LABORATORY Monocytes % 3.7 % [facility]OR[facility]ORY Monocyte Abs 0.4 0.3 - 0.9 [facility] x10(3)/[facility] LABORATORY Eosinophils % 0.1 % [facility] LABORATORY Eosinophils Abs 0.0 0.0 - 0.4 [facility] x10(3)/[facility] LABORATORY Basophils % 0.2 % [facility]ORATORY Basophils Abs 0.0 0.0 - 0.1 [facility] x10(3)/[facility] LABORATORY Immature Gran % 0.60 % [place] [...] Organization Address City/State/Z[place] [address] (ABNORMAL) Hemogram (07/05/2017 8:20 PM EST) Analysis Performed At Patho logist Time Signature WBC 10.3 (H) 4.0 - 9.5 [facility] x10(3)/[facility] LABORATORY RBC 4.64 4.58 - [facility] 5.[address] [facility] x10(6)/[facility] LABORATORY Hemoglobin 14.1 13.7 - [facility] 16.5 gm/dL [facility] Hematocrit 40.8 40.5 - [facility] 48.5 % [facility] MCV 87.9 82.9 - [facility] 93.1 [facility] LABORATORY MCH 30.4 27.5 - [facility] 32.1 pg [facility] MCHC 34.6 32.0 - [facility] 35.7 gm/dL [facility] Platelets 204 145 - 357 [facility] x10(3)/[facility] LABORATORY RDWSD 46.1 (H) 36.0 - [facility] 45.0 [facility] LABORATORY RDWCV 14.5 (H) 11.4 - [facility] 13.8 % [facility] LABORATORY MPV 9.7 7.6 - 12.9 [facility] LABORATORY nRBC % Auto 0.0 % [facility] LABORATORY nRBC Abs Auto 0.000 0.000 - [facility] 0.[address] [facility] x10(3)/[facility] LABORATORY Specimen Anatomical Collection Method Collection Time Receive d Time (Source) Location / / Volume Laterality Blood specimen 07/05/2017 8:20 PM 017 8:27 (specimen) EST PM EST Resulting Agency Comment Spec In Lab Daphne Shahid MD HEMATOLOGY ORDERABLES Performing Organization Address [facility]/[place] [address] APTT (07/05/2017 8:20 PM EST) athologist Signature PTT 32 25 - 35 sec [facility] Comment: The recommended therapeutic range for fu ll dose, unfractionated heparin at [facility] is 80 ? 114 seconds. The use [...] Shahid MD HEMATOLOGY ORDERABLES Performing Organization Address [facility] [place] [address] (ABNORMAL) Cardiac Enzymes (LEB/CGP) (07/05/2017 8:20 PM EST) athologist Signature Troponin-T 2.11 (H) 0.00 - [facility] 0.00 ng/mL [facility] Comment: The 99th percentile for Troponin T is le ss than 0.01 ng/mL, any detectable cTnT concentration using this assay should be considered elevated. According to the third universal definit ion of myocardial infarction the following criteria with a clinical prese ntation consistent with acute myocardial ischemia meets the diagnosis for a myocardial infarction (NC). Detection of a rise and/or fall of [...] additional sample may be indicated. Reference: Third Pinon Definition of Myocardial Infarction. Journal of the [employer] College of Cardiology 2012;60:1581-98 CK, Total 149 0 - 200 unit/L [facility] LABORATORY Specimen Anatomical Collection Method Collection Time Receive d Time (Source) Location / / Volume Laterality Blood specimen 07/05/2017 8:20 PM 017 8:27 (specimen) EST PM EST Resulting Agency Comment Spec In Lab Daphne Shahid MD CHEMISTRY ORDERABLES Performing Organization Address City/[facility]/[place] [address] (ABNORMAL) Magnesium (07/05/2017 8:20 PM EST) P athologist Signature Magnesium 0.68 (L) 0.69 - 1.07 [facility] mmol/L [facility] LAB[facility] Specimen Anatomical Collection Method Collection Time Receive d Time (Source) Location / / Volume Laterality Blood specimen 07/05/2017 8:20 PM 017 8:27 (specimen) EST PM EST Resulting Agency Comment Spec In Lab Daphne Shahid MD CHEMISTRY ORDERABLES Performing Organization Address City/[facility]/[place] [address] (ABNORMAL) Basic Metabolic Panel (non-fasting) (07/05/2017 8:20 PM EST) P athologist Signature Glucose Lvl 321 (H) 65 - 199 [facility] mg/dL [facility] Comment: Diabetes: >=200 mg/dL plus symp toms BUN 20 10 - 20 mg/dL [facility] LABORATORY Creatinine 1.12 0.80 [...] 107 mmol/L [facility] LABOR[facility]ORY CO2 27 22 - 31 mmol/L [facility] LABOR[facility] Anion Gap 14 5 - 15 mmol/L [facility] LABORATORY Calcium 8.1 (L) 8.5 - 10.5 mg/dL [facility] LABORATORY Estimated GFR >60 >=60 [facility] LAB[facility]ORY Comment: The reported eGFR should be multiplied b y 1.2 for patients. The MDRD is not an appropriate measure o f renal function for patients with body mass extremes or in patients with acute kidney failure. http://[employer]/DHnkdep http://[employer]/DHnkf Specimen Anatomical Collection Method Collection Time Receive d Time (Source) Location / / Volume Laterality Blood specimen 07/05/2017 8:20 PM 017 8:27 (specimen) EST PM EST Resulting Agency Comment Spec In Lab Daphne Shahid MD CHEMISTRY ORDERABLES Performing Organization Address City/[facility]/ZIP [place] [address] (ABNORMAL) POCT Glucose (07/05/2017 7:32 PM EST) P athologist Signature POC Glucose 296 (H) 65 - 199 [facility] mg/dL [facility] Comment: Supplemental ranges: <140 mg/dL before meals <180 mg/dL all other times of the day Specimen Anatomical Collection Method Collection Time Receive d Time (Source) Location / / Volume Laterality Blood specimen 07/05/2017 7:32 PM 017 7:32 (specimen) EST PM EST Daphne Shahid MD POINT OF CARE TEST ORDERABLE S Performing Organization Address City/[facility]/ZIP Code [place] [address] CARDIAC CATHETERIZATION (07/05/2017 6:47 PM EST) Specimen (Source) Anatomical Location Collection Method / Collectio n Time Received Time / Laterality Volume Narrative CARDIOMAC SYSTEM - 07/05/2017 7:27 PM ES T ?[facility] ? Cardiac Cathete rization/Intervention Report ? Patient Name: Natalya, Gregory ? Procedure Date: 07/05/2017 ? A #: [id number] ? Primary Physician: Jet Mckenna ? Case #: [id number] ? File Name: [id number] ? Catheterization Order Number: [id number] ? [facility] ? Final Report [place], [place] ? Patient Name: ? Gregory Natalya ?ID#: ?[id number] ? : ?1945 ? Procedure Date: ? [...] presented with: non -STEMI (w/i 7 days). [place] ?[employer] angina c lass was IV. [...] site angio graphy and IABP insertion in medical lab director. ? Jet Mckenna M.D. ? Electronically Signed by: Jet bunch M.D. ? Report Finalized: 07/05/2017 ??19:23 ? Report Last Ammended: 10/26/2017 ??10:29 ? Procedure Note Jet Mckenna MD - 10/26/2017Formatt ing of this note might be different from the original. [facility] Cardiac Catheterization/Intervention Re port Patient Name: Gregory Hoang Procedure Date: 07/05/2017 A #: [id number] Primary Physician: Jet Mckenna Case #: [id number] File Name: [id number] Catheterization Order Number: [id number] [facility] Final Report [place], [place] Patient Name: Gregory Hoang ID#: [id number] 3- : 1945 Procedure Date: July 05, [...] presented with: non-STEMI ( w/i 7 days). [place] [employer] angina class was IV. No [...] sedation nurse. Case time = 00:42. Dr. Jte Mckenna M.D. performed the coronary angiography, left heart catheterization, access site angiograph y and IABP insertion in medical lab director. Jet Mckenna M.D. Electronically Signed by: Jet [...] E ? (Age): 1945(72y) Med Rec#: ? [id number] ?Sex: ?M ? Site Loc: ? [facility] ?Ht / Wt: ??173(cm)/86(kg) Pt. Loc: ?[facility] ? BSA: ?2 Study Date: ?? 07/05/2017 ?Pt. Type: Inpatient Tape: ? Referring: Daphne Shahid ([id number]) Referring: MANDA ALCANTAR Reading: Blade Preston ([id number]) Milk Deliverer: Dayami Paula BA, [facility] Diagnosis: *ICD-10-PCS Non-ST elevation (NSTEMI) [...] E-wave Vmax ?0.8 ?m/sec ? MV deceleration [id number] ?msec ? MV A-wave Vmax ?0.8 ?m/sec [...] ? Mid-Inferior ?Akinetic ? Mid-Inferoseptal ?Hypokinetic ? [place]-Septal ? Akinetic ? [place]-Anterior ? Hypokinetic ? [place]-Lateral ?Hypokinetic ? [place]-Inferior ? Akinetic ? [place]-Tip ?Akinetic ? This report has been electronically sign ed by: _ Blade Preston MD ? 07/06/2017 08 :53:15 Images reviewed and interpretation verif ied [facility] Cardiac Ultrasound Laboratory Procedure Note Blade Preston MD - 07/06/2017Formatt ing of this note might be different from the original. Procedure: Transthoracic Echocardiogram Patient: NATALYA MCBRIDE(Age): [birth year]72y) Med Rec#: [id number] Sex: M Site Loc: [facility] Ht / Wt: 173(cm)/86(kg) Pt. Loc: [facility] BSA: 2 Study Date: 07/05/2017 Pt. Type: Inpatie nt Tape: Referring: Daphne Shahid ([id number]) Referring: MANDA ALCANTAR Reading: Blade Preston ([id number]) Milk Deliverer: Dayami Paula BA, [facility] Diagnosis: *ICD-10-PCS Non-ST elevation (NSTEMI) [...] MV E-wave Vmax 0.8 m/sec MV deceleration [id number] msec MV A-wave Vmax 0.8 m/sec MV [...] Hypokinetic Mid-Posterolateral Hypokinetic Mid-Inferior Akinetic Mid-Inferoseptal Hypokinetic [place]-Septal Akinetic [place]-Anterior Hypokinetic [place]-Lateral Hypokinetic [place]-Inferior Akinetic [place]-Tip Akinetic This report has been electronically sign ed by: _ Blade Preston MD 07/06/2017 08:53:15 Images reviewed and interpretation verif ied [facility] Cardiac Ultrasound Laboratory Daphne Shahid MD ECHO ORDERABLES Performing Organization Address City/State/ZIP Code Phon e Number [facility] Differential, Automated (07/05/2017 4:55 PM EST) P athologist Signature Neutrophils % 77.0 % [facility] LABORATORY Neutr Abs (ANC) 5.26 1.70 - [facility] 6.[address] [facility] x10(3)/[facility] LABORATORY Lymphocytes % 13.3 % [facility]ORATORY Lymphocytes Abs 0.9 0.9 - [address].2 [facility] x10(3)/[facility] LABORATORY Monocytes % 8.2 % [facility] LABORATORY Monocyte Abs 0.6 0.3 - 0.9 [facility] x10(3)/[facility] LABORATORY Eosinophils % 0.7 % [facility] LABORATORY Eosinophils Abs 0.0 0.0 - 0.4 [facility] x10(3)/[facility] LABORATORY Basophils % 0.4 % [facility] LABORATORY Basophils Abs 0.0 0.0 - 0.1 [facility] x10(3)/[facility] LABORATORY Immature Gran % 0.40 % [place] [...] 0.03 0.00 - 0.04 x10(3)/[facility] LABORATORY Specimen Anatomical Collection Method Collection Time Receive d Time (Source) Location / / Volume Laterality Blood specimen 07/05/2017 4:55 PM 017 5:24 (specimen) EST PM EST Resulting Agency Comment Spec In Lab Daphne Shahid MD HEMATOLOGY ORDERABLES Performing Organization Address City/State/Z[place] [address] (ABNORMAL) Hemogram (07/05/2017 4:55 PM EST) Analysis Performed At Patho logist Time Signature WBC 6.8 4.0 - 9.5 [facility] x10(3)/[facility] LABORATORY RBC 4.67 4.58 - [place] 5.[address] [facility] x10(6)/[facility] LABORATORY Hemoglobin 14.0 13.7 - [facility] gm/dL [facility] LABORATORY Hematocrit 41.0 40.5 - [facility] 48.5 % [facility] LAB[facility]ATORY MCV 87.8 82.9 - [facility] 93.1 [facility] LABORATORY MCH 30.0 27.5 - [facility] 32.1 pg [facility] LABORATORY MCHC 34.1 32.0 - [facility] 35.7 gm/dL [facility] LABORATORY Platelets 197 145 - 357 [facility] x10(3)/[facility] LABORATORY RDWSD 46.4 (H) 36.0 - [facility] 45.0 [facility] LABORATORY RDWCV 14.5 (H) 11.4 - [facility] 13.8 % [facility] LABORATORY MPV 9.7 7.6 - 12.9 [facility] LABORATORY nRBC % Auto 0.0 % [facility] LABORATORY nRBC Abs Auto 0.000 0.000 - [facility] 0.[address] [facility] x10(3)/[facility] LABORATORY Specimen Anatomical Collection Method Collection Time Receive d Time (Source) Location / / Volume Laterality Blood specimen 07/05/2017 4:55 PM 017 5:24 (specimen) EST PM EST Resulting Agency Comment Spec In Lab Daphne Shahid MD HEMATOLOGY ORDERABLES Performing Organization Address City/State/Z[place] [address] (ABNORMAL) Cardiac Enzymes (LEB/CGP) (07/05/2017 4:55 PM EST) P athologist Signature Troponin-T 1.69 (H) 0.00 - [facility] ng/mL [facility] Comment: The 99th percentile for Troponin T is le ss than 0.01 ng/mL, any detectable cTnT concentration using this assay should be considered elevated. According to the third universal definit ion of myocardial infarction the following criteria with a clinical prese ntation consistent with acute myocardial ischemia meets the diagnosis for a myocardial infarction (NC). Detection of a rise and/or fall of [...] additional sample may be indicated. Reference: Third Pinon Definition of Myocardial Infarction. Journal of the [employer] College of Cardiology 2012;60:1581-98 CK, Total 191 0 - 200 unit/L [facility] LABORATORY Specimen Anatomical Collection Method Collection Time Receive d Time (Source) Location / / Volume Laterality Blood specimen 07/05/2017 4:55 PM 017 5:56 (specimen) EST PM EST Resulting Agency Comment Spec In Lab Daphne Shahid MD CHEMISTRY ORDERABLES Performing Organization Address City/State/Z[place] [address] (ABNORMAL) pro-Brain Natriuretic Peptide (07/05/2017 4:55 PM EST) P athologist Signature ProBNP 1,598 (H) <=125 [facility] pg/mL [facility] LABOR[facility]ORY Specimen Anatomical Collection Method Collection Time Receive d Time (Source) Location / / Volume Laterality Blood specimen 07/05/2017 4:55 PM 017 5:24 (specimen) EST PM EST Resulting Agency Comment Spec In Lab Daphne Shahid MD CHEMISTRY ORDERABLES Performing Organization Address City/State/ZIP [place] [address] Magnesium (07/05/2017 4:55 PM EST) athologist Signature Magnesium 0.78 0.69 - 1.07 [facility] mmol/L [facility] LABORATORY Specimen Anatomical Collection Method Collection Time Receive d Time (Source) Location / / Volume Laterality Blood specimen 07/05/2017 4:55 PM 017 5:24 (specimen) EST PM EST Resulting Agency Comment Spec In Lab Daphne Shahid MD CHEMISTRY ORDERABLES Performing Organization Address City/State/ZIP Code Phon e Number [address] (ABNORMAL) Basic Metabolic Panel (non-fasting) (07/05/2017 4:55 PM EST) athologist Signature Glucose Lvl 230 (H) 65 - 199 [facility] mg/dL [facility] Comment: Diabetes: >=200 mg/dL plus symp toms BUN 19 10 - 20 mg/dL [facility] LABORATORY Creatinine 1.04 0.80 [...] [facility] LABORATORY Estimated GFR >60 >=60 [facility] LABORATORY Comment: The reported eGFR should be multiplied b y 1.2 for patients. The MDRD is not an appropriate measure o f renal function for patients with body mass extremes or in patients with acute kidney failure. http://[employer].com/DHnkdep http://[employer].com/DHMCnkf Specimen Anatomical Collection Method Collection Time Receive d Time (Source) Location / / Volume Laterality Blood specimen 07/05/2017 4:55 PM 017 5:24 (specimen) EST PM EST Resulting Agency Comment Spec In Lab Daphne Shahid MD CHEMISTRY ORDERABLES Performing Organization Address City/[facility] [place] [address] (ABNORMAL) APTT (07/05/2017 4:55 PM EST) P athologist Signature PTT 41 (H) 25 - 35 sec [facility] LABOR[facility]ORY Comment: The recommended therapeutic range for fu ll dose, unfractionated heparin at [facility] is 80 ? 114 seconds. The use [...] Shahid MD HEMATOLOGY ORDERABLES Performing Organization Address City/[facility]/[place] [address] (ABNORMAL) POCT Glucose (07/05/2017 4:53 PM EST) P athologist Signature POC Glucose 208 (H) 65 - 199 [facility] mg/dL [facility] Comment: Supplemental ranges: <140 mg/dL before meals <180 mg/dL all other times of the day Specimen Anatomical Collection Method Collection Time Receive d Time (Source) Location / / Volume Laterality Blood specimen 07/05/2017 4:53 PM 017 4:53 (specimen) EST PM EST Daphne Shhaid MD POINT OF CARE TEST ORDERABLE S Performing Organization Address City/[facility]/[place] [address] EKG 12 Lead (07/05/2017 4:32 PM EST) Component Value Ref Range Test Analysis Performed Pathologis t Method Time At Signature Ventricular rate 97 BPM MUSE SYSTEM Atrial Rate 97 BPM MUSE SYSTEM P-R Interval 148 ms MUSE SYSTEM QRS Duration 96 ms MUSE SYSTEM Q-T Interval 364 ms MUSE SYSTEM QTC Calculated 462 ms MUSE SYSTEM (Bezet) Calculated P [place] 48 degrees MUSE SYSTEM Calculated R [place] -33 degrees MUSE SYSTEM Calculated T [place] 98 degrees MUSE SYSTEM INTERPRETATION Normal sinus [...] Coronary atherosclerosis of unspecified type of vessel, [place] or graft Cardiomyopathy, ischemic Other specified [...] in dextrose 5% 250 mL EST infusion (X RAY DEVELOPER) CONTINUOUS PRN, Starting on Wed07/05/17 at 1837, [...] Myrna triplett RN)1200 (Not Given - Provider: Myran Young RN - Reason: Patient/family refused) 0-10 [...] Discontinued, Routine 2200 (Given - Provider: Ale Ranegl RN) 2130 (No t Given - Provider: [...]
Routine documented in this encounter Care Teams Level Vial Sealer Relationship Specialty Start Date End Date Lovely Vicente MD PCP - General 04/16/15 [facility] [address] [place] [address] documented as of this encounter
--- OUTSIDE RECORDS SUMMARY | 2022-03-09 15:33 | XMS_ITS | Encounter Summary ---
:1945 Author Organization [facility] [place] [address] Care Team Providers Name Role Phone Lovely Vicente MD Primary Care Provider Encounter Details Date Type Department Care Team Description 09/03/2016 Office Visit Endocrinology at [facility] Maria Ines Stallings of [facility] MD [place] [address] [place] [address] ENDOCRINOLOGY DEPT [place], [place] [address] Social History Tobacco Use Types [...] to his magnesium pill. LUZ PRESCOTT MD Computer Training Specialistyouth support worker Section of Endocrinology [facility] sonographic evidence of recurrence. LUZ PRESCOTT MD Computer Training Specialistyouth support worker Section of Endocrinology [facility] documented in this encounter Plan of Treatment Upcoming Encounters Date Type Specialty Care Team Description 03/26/2022 Office Visit Cardiology Vitaliy Nobles MD [facility] CARDIOLOGY [place], [place] 0[address] (Wo rk) 06/10/2022 Office Visit Dermatology Laura Scherer MD [facility] [address]DERMAT OLOGY [place], [place] [address] (Wo rk) documented as of this encounter Results Thyroglobulin (09/07/2017 2:41 PM EST) athologist Signature Thyroglobulin 1.4 <=54.9 [facility] ng/mL [facility] Comment: Thyroglobulin levels may [...] Prescott MD CHEMISTRY ORDERABLES Performing Organization Address City/[facility]/ZIP Code Phon e Number [address] TSH (09/07/2017 2:41 PM EST) P athologist Signature TSH 3.93 0.27 - 4.20 KATALINA DAVIS mlU/ML [facility]OR[facility] Specimen Anatomical Collection Method Collection Time Receive d Time (Source) Location / / Volume Laterality Blood specimen 09/07/2017 2:41 PM 018 2:46 (specimen) EST PM EST Resulting Agency Comment Spec In Lab Luz Prescott MD CHEMISTRY ORDERABLES Performing Organization Address [facility] Phon e Number [address] Thyroglobulin (09/03/2016 11:07 AM EST) athologist Signature Thyroglobulin <0.4 <=54.9 KATALINA DAVIS ng/mL [facility] Comment: Interpret with caution. [...] BR et al. J Clin Endo Metab 1999;84:9935-4665). Assay performed using the DPC Immulite T [...] Address City/State/ZIP [place] [address] TSH (09/03/2016 11:07 AM EST) P athologist Signature TSH 3.01 0.27 - 4.20 [facility] mcIU/mL [facility]OR[facility] Specimen Anatomical Collection Method Collection Time Receive d Time (Source) Location / / Volume Laterality Blood specimen 09/03/2016 11:07 7 (specimen) AM EST 11:22 AM EST Resulting Agency Comment Spec In Lab Luz Prescott MD CHEMISTRY ORDERABLES Performing Organization Address City/[facility]/ZIP [place] [address] documented in this encounter Visit Diagnoses Diagnosis Hx of papillary thyroid carcinoma Personal history of malignant neoplasm o f thyroid documented in this encounter Care Teams Art Gallery Internship Relationship Specialty Start Date End Date Lovely Vicente MD PCP - General 04/16/[address] [place] [address] documented as of this encounter
--- OUTSIDE RECORDS SUMMARY | 2022-03-09 15:34 | XMS_ITS | Encounter Summary ---
:1945 Author Organization [facility] [place] [address] Care Team Providers Name Role Phone MiyaAngela STACIE Primary Care Provider Reason for Visit Reason Onset Date Comments Advice Only 03/31/2013 Encounter Details Date Type Department Care Team Description 03/31/2013 Telephone Urology at [facility] Daniele Trejo III, MD Advice Only One [facility] [place] [address] [place] [id number] [phone] (Wo rk) Social History Tobacco Use Types [...] Visit Cardiology Vitaliy Nobles MD [facility] CARDIOLOGY [place], [place] [address] (Wo rk) 06/10/2022 Office Visit Dermatology Laura Scherer MD [facility] ER DR [address]DERMAT [place], [place] [address] (Wo rk) documented as of this encounter Visit Diagnoses Not on filedocumented in this encounter Care Teams Director Of Community Center Relationship Specialty Start Date End Date Angela Holliday APRN PCP - General 01/25/13 04/15/[address] [place] [address] documented as of this encounter
--- OUTSIDE RECORDS SUMMARY | 2022-03-09 15:34 | XMS_ITS | Encounter Summary ---
:1945 Author Organization [facility] [place] [address] Care Team Providers Name Role Phone MiyaAngela STACIE Primary Care Provider Reason for Visit Reason Comments Post Op voiding trial Encounter Details Date Type Department Care Team Description 04/05/2013 Office Visit Urology at [facility] Darryl Egan, UTI ([facility] MD tract infection) [facility] (Primary Dx) [place] [address] UROLOGY DEPT [phone] [place], [place] 0[address] Social History Tobacco Use Types [...] Nobles MD [facility] ER CARDIOLOGY [place], [place] 0375 (Wo rk) 06/10/2022 Office Visit Dermatology Laura Scherer MD [facility] ER DR TEJA GR-DERMAT OGY [place], [place] 0[address] (Wo rk) documented as of [...] Analysis Performed At [facility] Range Method Time Signature Urine Culture CERNER ? Patient Name: GREGORY HOANG ? Ordered By: DARRYL EGAN [facility] ? MR#: [id number] ?LOC: ??5B ? /Sex: ??1945 (68 years), [...] S ? Patient: GREGORY HOANG ? MR#: [id number] ? FOOTNOTES ? (1) ? This organism [...] Organization Address City/State/[place] [address] [facility] documented in this encounter Visit Diagnoses Diagnosis UTI (lower urinary tract infection) - Pr imary Urinary tract infection, site not specif ied documented in this encounter Care Teams Typesetters Printer Relationship Specialty Start Date End Date Angela Holliday APRN PCP - General 01/25/13 04/15/[address] [place] [address] documented as of this encounter
--- OUTSIDE RECORDS SUMMARY | 2022-03-09 15:34 | XMS_ITS | Encounter Summary ---
:1945 Author Organization [facility] [place] [address] Care Team Providers Name Role Phone MiyaAngela STACIE Primary Care Provider Encounter Details Date Type Department Care Team Description 11/27/2013 Orders Only Urology at [facility] Blade Smith, Urinary retention [facility] (Primary Dx) [place] [address] UROLOGY DEPT [place], [place] 0[address] Social History Tobacco Use Types [...] MD [facility] ER DR TADEO [place], [place] [address] (Wo rk) 06/10/2022 Office Visit Dermatology Laura Scherer MD [facility] DR [address]MAT OLOGY [place], [place] 0[address] (Wo rk) documented as [...] Organization Address City/State/[place] [address] [facility] documented in this encounter Visit Diagnoses Diagnosis Urinary retention - Primary Retention of urine, unspecified documented in this encounter Care Teams Boom Man Relationship Specialty Start Date End Date Angela Holliday APRN PCP - General 01/25/13 04/15/[address] [place] [address] documented as of this encounter
--- OUTSIDE RECORDS SUMMARY | 2022-03-09 15:34 | XMS_ITS | Encounter Summary ---
:1945 Author Organization [facility] Address [facility] [place] [address] Care Team Providers Name Role Phone Unknown Primary Care Provider Unavailable Reason for Visit Reason Comments Skin Check Encounter Details Date Type Department Care Team Description 10/04/2012 Follow-Up Dermatology at Rigoberto Forman soriasis (Primary Dx); Abdelrahman HOOPER MD Neoplasm of unspecified nature of bone, soft tissue, and skin; [address] [facility] Skin lesion of chest wall; [place] [address] Seborrheic psoriasis- scalp and ingtergl uteal area [phone] [facility]-DERMATOLGY [place], [place] [address] (Wo rk) Social History Tobacco [...] changes: Rigoberto Albarran MD Section of Dermatology [facility] documented in this encounter Plan of Treatment Upcoming Encounters Date Type Specialty Care Team Description 03/26/2022 Office Visit Cardiology Vitaliy Nobles MD [facility] DR T[address] [place], [place] [address] (Wo rk) 06/10/2022 Office Visit Dermatology Laura Scherer MD [facility] DR TE[address] GR-DERMAT [place], [place] 0[address] (Wo rk) documented as of [...] Component Value Ref Test Analysis Performed At [facility] gist Range Method Time Signature Surgical CERNER Pathology ? [facility] Report ? Provider: ?? RIGOBERTO ALBARRAN III Pt. Name: ?? NATALYA , DON E ?A ? Acc #: ?[id number] ? Pt. ? Col Date: ?? 3 [...] MD PATHOLOGY/CYTOLOGY ORDERABLE S Performing Organization Address City/[facility]/[place] [address] CERNER [place] Specimen to [...] MD PATHOLOGY/CYTOLOGY ORDERABLE S Performing Organization Address City/[facility]/[place] [address] CERNER [place] documented in this encounter Visit Diagnoses Diagnosis Psoriasis - Primary Other psoriasis Neoplasm of unspecified nature of bone, soft tissue, and skin Skin lesion of chest wall Unspecified disorder of skin and subcuta neous tissue Seborrheic psoriasis- scalp and ingtergl uteal area Other psoriasis documented in this encounter Care Teams Cyanide Furnace Operator Relationship Specialty Start Date End Date Unknown PCP - General 10/04/12 01/24/13 None documented as of this encounter
--- OUTSIDE RECORDS SUMMARY | 2022-03-09 15:34 | XMS_ITS | Encounter Summary ---
:1945 Author Organization [facility] [place] [address] Care Team Providers Name Role Phone Adi Costello MD Primary Care Provider Reason for Visit Reason Comments Annual Exam ckeck his groin and melanoma follow-up Encounter Details Date Type Department Care Team Description 11/21/2010 Follow-Up Dermatology Arik Tipton Melanoma (Primary Dx) [facility] MD Jorge [place] [id number] DERMATOLOGY DEPT . 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 documented in this encounter Plan of Treatment Upcoming Encounters Date Type Specialty Care Team Description 03/26/2022 Office Visit Cardiology Vitaliy Nobles MD [facility] DR T[address] [place], [place] [address] (Wo rk) 06/10/2022 Office Visit Dermatology Laura Scherer MD [facility] DR TE[address] GR-DERMAT OGY [place], [place] [address] (Wo rk) documented as of this encounter Visit Diagnoses Diagnosis Melanoma - Primary Melanoma of skin, site unspecified documented in this encounter Care Teams Chick Grader Relationship Specialty Start Date End Date Adi Costello MD PCP - General 06/17/10 09/21/[address] [place] [address] documented as of this encounter
--- OUTSIDE RECORDS SUMMARY | 2022-03-09 15:34 | XMS_ITS | Encounter Summary ---
:1945 Author Organization [facility] [place] [address] Care Team Providers Name Role Phone Angela Sotelo APRN Primary Care Provider Encounter Details Date Type Department Care Team Description 01/16/2014 Surgery Gastroenterology at [facility] Nohemi Jaimes, COLONOSCOPY, [facility] Jorge mcnamara MD [place]OM[place] [address] [facility] LESION BY SNARE ([facility] [phone] DR Cintron) GASTROENTEROLOGY DEPT. [place], [place] [address] Social History Tobacco Use Types [...] you need to be checked. [facility] [phone] 8a-5p Same Day Endo [phone] 7a-8p Otherwise contact [phone] and ask to speak to the teacher industrial arts cotton seed culler Follow up care is a [place] part [...] Jaimes MD - 01/16/2014 9:49 AM EDT [facility] Operative Note Patient Name: Gregory Fatima : [id number] MR#: [id number] Case Date: 01/16/2014 Surgeon: Surgeon(s) and Role: * Nohemi Jaimes MD - Primary Preoperative diagnosis: 5 yr surv. Full procedure note is documented under the Procedure section of eDH. documented in this encounter Plan of Treatment Upcoming Encounters Date Type Specialty Care Team Description 03/26/2022 Office Visit Cardiology Vitaliy Nobles MD [facility] ER DR TADEO [place], [place] 0[address] (Wo rk) 06/10/2022 Office Visit Dermatology Laura Scherer MD [facility] ER DR TEJA GR-DERMAT OLOGY [place], [place] 0[address] (Wo rk) documented as of [...] Surgical Pathology Report (01/16/2014 9:53 AM EDT) [facility] Method Time Signature Surgical CERNER Pathology ? [facility] Report ? Provider: ?? SHREE, NOHEMI Gonzalez ?Pt. Name: ?? SURINDER ALEGRE, GREGORY Mccollum ? Acc #: ?[id number] ?Pt. MRN: ?[id number] ? Col Date: ?? 4 ? /Sex: ?1945,(68 years),Male ? Rec Date: ?? 01/16/2014 ? LOC: ?4T ? SURGICAL PATHOLOGY ? ---Pathologic Diagnosis--- ? Endoscopic biopsies - ? A. Hyperplastic polyp and colonic mucosa within daa l limits. ? B. Tubular adenoma. ? [...] Address City/State/ZIP Code Phon e Number [address] CERNER MILLENNIUM Specimen to [...] [facility]/[place] [address] CERNER MILLENNIUM Specimen to [...] Address City/State/[place] [address] CERNER MILLENNIUM COLONOSCOPY (01/16/2014 7:25 AM EDT) [facility] Method Time Signature COLONOSCOPY [facility] PROVATION Endoscopy Patient Name: Gregory Fatima ? Procedure Date: 01/16/2014 7:25 AM ? N: [id number] ? Date of : 1945 ? Age: 68 ? Order #: [id number] ? Procedure: ? Colonoscopy Indications: ? High [...] Laterality 01/16/2014 7:25 AM EDT Angela Sotelo INSTITUTIONAL AIDE GENERAL SURGICAL ORDERABLES Performing Organization Address City/State/ZIP [...] Routine documented in this encounter Care Teams Rough Rice Grader Relationship Specialty Start Date End Date Angela Sotelo APRN PCP - General 01/25/13 04/15/[address] [place] [address] documented as of this encounter
--- OUTSIDE RECORDS SUMMARY | 2022-03-09 15:34 | XMS_ITS | Encounter Summary ---
:1945 Author Organization [facility] [place] [address] Care Team Providers Name Role Phone Lovely Vicente MD Primary Care Provider Reason for Visit Reason Onset Date Comments Referral 10/30/2015 Urgent referral for mac on [address] Encounter Details Date Type Department Care Team Description 10/30/2015 Telephone Ophthalmology at [facility] Jayson Ruiz Referral (Urgent [facility] MD Grabiel referral for mac on [facility] [address]) [place] [address] OPHTHALMOLOGY DEPT. [phone] [place], [place] [address] (Wo rk) Social History Tobacco [...] MD [facility] DR TADE[address] [place], [place] [address] (Wo rk) 06/10/2022 Office Visit Dermatology Laura Scherer MD [facility] DR TEJA GR-DERMAT [facility] [place], [place] [address] (Wo rk) documented as of this encounter Visit Diagnoses Not on filedocumented in this encounter Care Teams Motorsports Technician Relationship Specialty Start Date End Date Lovely Vicente MD PCP - General 04/16/15 [facility] [address] [place] [address] documented as of this encounter
--- OUTSIDE RECORDS SUMMARY | 2022-03-09 15:34 | XMS_ITS | Encounter Summary ---
:1945 Author Organization [facility] [place] [address] Care Team Providers Name Role Phone MiyaLokeshAngela STACIE Primary Care Provider Reason for Visit Reason Onset Date Comments Post-op Problem 04/05/2013 voiding trial Encounter Details Date Type Department Care Team Description 04/05/2013 Telephone Urology at [facility] Blade Smith, Post-op Problem [facility] (voiding trial) [place] [address] UROLOGY DEPT [place] [address] (Wo rk) Social History Tobacco Use Types [...] MD [facility] DR TADE[address] [place], [place] [address] (Wo rk) 06/10/2022 Office Visit Dermatology Laura Scherer MD [facility] DR TE[address] GR-DERMAT OLOGY [place], [place] [address] (Wo rk) documented as of this encounter Visit Diagnoses Not on filedocumented in this encounter Care Teams Leather Stretcher Relationship Specialty Start Date End Date Angela Holliday APRN PCP - General 01/25/13 04/15/[address] [place] [address] documented as of this encounter
--- OUTSIDE RECORDS SUMMARY | 2022-03-09 15:34 | XMS_ITS | Encounter Summary ---
:1945 Author Organization [facility] [place] [address] Care Team Providers Name Role Phone Angela Holliday APRN Primary Care Provider Reason for Visit Reason Comments Benign Prostatic Hypertrophy Encounter Details Date Type Department Care Team Description 11/28/2013 Follow-Up Urology at [facility] Blade Smith, Urinary retention (Primary D x); [facility] BPH (benign prostatic hyperplasia) [place] [address] UROLOGY DEPT [place], [place] [address] (Wo rk) Social History Tobacco [...] EDT documented in this encounter Progress Notes Balde Smith MD - 11/28/2013 9:39 AM EDT [...] Nobles MD [facility] CARDIOLOGY [place], [place] [address] (Wo rk) 06/10/2022 Office Visit Dermatology Laura Scherer MD [facility] DR TEJA GR-DERMAT [facility] [place], [place] [address] (Wo rk) documented as of [...] Address City/State/ZIP Code Ph[place] [address] [facility] documented in this encounter Visit Diagnoses Diagnosis Urinary retention - Primary Retention of urine, unspecified BPH (benign prostatic hyperplasia) Unspecified hyperplasia of prostate with out urinary obstruction and other lower urinary tract symptoms (LUTS) documented in this encounter Care Teams Film Recordist Relationship Specialty Start Date End Date Angela Holliday APRN PCP - General 01/25/13 04/15/[address] [place] [address] documented as of this encounter
--- OUTSIDE RECORDS SUMMARY | 2022-03-09 15:34 | XMS_ITS | Encounter Summary ---
:1945 Author Organization [facility] [place] [address] Care Team Providers Name Role Phone Angela Holliday APRN Primary Care Provider Encounter Details Date Type Department Care Team Description 01/25/2013 Clinical [place] [address] Social History Tobacco Use Types Packs/Day [...] Nobles MD [facility] CARDIOLOGY [place], [place] [address] (Wo rk) 06/10/2022 Office Visit Dermatology Laura Scherer MD [facility] DR TEJA GR-DERMAT [facility] [place] [place] [address] (Wo rk) documented as of this encounter Visit Diagnoses Not on filedocumented in this encounter Care Teams Fish Straightener Relationship Specialty Start Date End Date Angela Holliday APRN PCP - General 01/25/13 04/15/[address] [place] [address] documented as of this encounter
--- OUTSIDE RECORDS SUMMARY | 2022-03-09 15:34 | XMS_ITS | Encounter Summary ---
:1945 Author Organization [facility] [address] Care Team Providers Name Role Phone MiyaLokeshAngela STACIE Primary Care Provider Encounter Details Date Type Department Care Team Description 04/04/2013 Orders Only General Surgery at Manny Mcknight thyroid [facility] MD Eliseo carcinoma (Primary Dx) [facility] [place] [address] GENERAL SURGERY [phone] [place], [place] [address] Social History Tobacco Use Types [...] MD [facility] ER CARDIOLOGY [place], [place] [address] (Wo rk) 06/10/2022 Office Visit Dermatology Laura Scherer MD [facility] DR TEJA GR-DERMAT OLOGY [place], [place] [address] (Wo rk) documented as of this encounter Visit Diagnoses Diagnosis Papillary thyroid carcinoma - Primary Malignant neoplasm of thyroid gland documented in this encounter Care Teams Regulatory Lead Relationship Specialty Start Date End Date Angela Holliday APRN PCP - General 01/25/13 04/15/[address] [place] [address] documented as of this encounter
--- OUTSIDE RECORDS SUMMARY | 2022-03-09 15:34 | XMS_ITS | Encounter Summary ---
:1945 Author Organization [facility] [place] [address] Care Team Providers Name Role Phone Unknown Primary Care Provider Unavailable Reason for Visit Reason Comments Other Encounter Details Date Type Department Care Team Description 10/05/2012 Telephone Dermatology at [facility] Rigoberto Garcia III, [address] [place] [address] [facility] [phone] TEJA MARIE-DERMAT [place] [phone] (Wo rk) Social History Tobacco Use Types [...] Cardiology Vitaliy Nobles MD [facility] ER DR TADEO [place], [place] [address] (Wo rk) 06/10/2022 Office Visit Dermatology Laura Scherer MD [facility] DR TEJA MARIE-DERMAT OGY [place], [place] [address] (Wo rk) documented as of this encounter Visit Diagnoses Not on filedocumented in this encounter Care Teams Cosmetician Relationship Specialty Start Date End Date Unknown PCP - General 10/04/12 01/24/13 None documented as of this encounter
--- OUTSIDE RECORDS SUMMARY | 2022-03-09 15:34 | XMS_ITS | Encounter Summary ---
:1945 Author Organization [facility] [place] [address] Care Team Providers Name Role Phone MiyaLokeshAngela STACIE Primary Care Provider Encounter Details Date Type Department Care Team Description 01/16/2014 Hospital Encounter G[facility]ology [place] [facility] Nohemi Jaimes, [facility] [place] [address] [facility] [phone] [facility] [place], [place] [address] Social History Tobacco Use [...] you need to be checked. Wednesday-[facility] Clinic [phone] 8a-5p Same Day Endo [phone] 7a-8p Otherwise contact [phone] and ask to speak to the assisted sales representative title i instructional assistant Follow up care is a shelton part [...] Jaimes MD - 01/16/2014 9:49 AM EDT [facility] Operative Note Patient Name: Gregory Fatima : [id number] MR#: [id number] Case Date: 01/16/2014 Surgeon: Surgeon(s) and Role: * Nohemi Jaimes MD - Primary Preoperative diagnosis: 5 yr surv. Full procedure note is documented under the Procedure section of eDH. documented in this encounter Plan of Treatment Upcoming Encounters Date Type Specialty Care Team Description 03/26/2022 Office Visit Cardiology Vitaliy Nobles MD [facility] [address] T[address] [place], [place] [address] (Wo rk) 06/10/2022 Office Visit Dermatology Laura Scherer MD [facility] DR [address] RD-DERMAT OLOGY [place], [place] [address] (Wo rk) documented as [...] Surgical Pathology Report (01/16/2014 9:53 AM EDT) [facility] Method Time Signature Surgical CERNER Pathology ? [facility] Report ? Provider: ?? SHREE, NOHEMI Gonzalez ?Pt. Name: ?? SURINDER RT, GREGORY Mccollum ? Acc #: ?[id number] ?Pt. MRN: ?[id number] ? Col Date: ?? 4 ? /Sex: [...] Address City/State/ZIP Code Phon e Number [address] [facility] Specimen to Pathology (surgical or derm) [...] City/[facility]/ZIP Code Phon e Number [address] [facility] [...] MD PATHOLOGY/CYTOLOGY ORDERABLE S Performing Organization Address [facility]/State/[place] [address] CERNER MILLENNIUM COLONOSCOPY (01/16/2014 7:25 AM EDT) [facility] Method Time Signature COLONOSCOPY [facility] Endoscopy Patient Name: Gregory Fatima ? Procedure Date: 01/16/2014 7:25 AM ? N: [id number] ? Date of : 1945 ? Age: 68 ? Order #: [id number] ? Procedure: ? Colonoscopy Indications: ? High [...] Routine documented in this encounter Care Teams Pharmacy Technology Instructor Relationship Specialty Start Date End Date Angela Sotelo APRN PCP - General 01/25/13 04/15/[address] [place] [place] [address] documented as of this encounter
--- OUTSIDE RECORDS SUMMARY | 2022-03-09 15:34 | XMS_ITS | Encounter Summary ---
:1945 Author Organization [facility] [place] [address] Care Team Providers Name Role Phone Angela Holliday APRN Primary Care Provider Encounter Details Date Type Department Care Team Description 03/28/2013 Surgery Main Operating Room Mesha Mcknight, THYROIDECTOMY, [facility] [address] [place]idd[place] [address] [place] [address] [phone] (Wo rk) Social History Tobacco Use Types [...] please call the General Surgery nurse at [phone], since this may mean that you need morecalcium. Follow-up Appointment: Will be scheduled with Dr. Mcknight in 6 weeks Date and time as well as any required labs will be mailed to you Please call [phone] to confirm date and time of your [...] by calcium supplementation. Phone number for questions: [phone] before 5 PM weekdays [phone] after 5 PM and on weekends/holidays Please follow up with Urology as per their recommendations for Bbo removal AttachmentsThe following attachments cannot be sent through Care Everywhere. THYROIDECTOMY: WHAT TO EXPECT AT HOME (ALBANIAN)URINARY CATHETER CARE: AFTER YOUR VISIT (ALBANIAN)documented in this encounter Medications at Time of [...] is a 68 y.o. male presents to [facility] today for total thyroidectomy. See full [...] MD - 03/28/2013 3:43 PM EDT [facility] Operative Note Patient Name: Gregory Fatima : [id number] MR#: [id number] Case Date: 03/28/2013 Surgeon: Surgeon(s) and Role: [...] patient was extubated and taken to the [facility] in stable condition. At the end [...] Operative Note Patient Name: Gregory Fatima : [id number] MR#: [id number] Case Date: 03/28/2013 Surgeon: Surgeon(s) and Role: [...] Nobles MD [facility] CARDIOLOGY [place], [place] [address] (Wo rk) 06/10/2022 Office Visit Dermatology Laura Scherer MD [facility] DR TEJA GR-DERMAT [facility] [place] [place] [address] (Wo rk) documented as of [...] Address City/State/ZIP Code Phon e Number [address] CERNER MILLENNIUM (ABNORMAL) POCT [...] CARE TEST ORDERABLE S Performing Organization Address City/[facility]/[place] [address] CERNER MILLENNIUM (ABNORMAL) POCT [...] Address City/State/ZIP Code Phon e Number [address] CERNER MILLENNIUM (ABNORMAL) POCT [...] CARE TEST ORDERABLE S Performing Organization Address City/[facility]/ZIP Code Phon e Number [address] CERNER MILLENNIUM (ABNORMAL) POCT [...] Address City/State/ZIP Code Phon e Number [address] CERNER MILLENNIUM (ABNORMAL) POCT [...] Organization Address City/State/[place] [address] CERNER MILLENNIUM (ABNORMAL) POCT [...] CARE TEST ORDERABLE S Performing Organization Address City/[facility]/ZIP Code Phon e Number [address] CERNER MILLENNIUM (ABNORMAL) POCT [...] Organization Address City/State/[place] [address] CERNER MILLENNIUM Specimen to Pathology (surgical or derm) (03/28/2013 12:14 PM EDT) Specimen Anatomical Collection Method Collection Time Receive d Time (Source) Location / / Volume Laterality AP Specimen 03/28/2013 12:14 03/28/2013 PM EDT 12:14 PM EDT Narrative [facility] - 03/28/2013 12:14 PM EDT Specimen requisition ordered. ??Separate Pathology report to follow Mesha Mcknight MD PATHOLOGY/CYTOLOGY ORDERABLE S Performing Organization Address City/State/[place] [address] [facility] Pathology Addendum Report (03/28/2013 12:03 PM EDT) Component Value Ref Test Analysis Performed At [facility] gist Range Method Time Signature Addendum [facility] Report ? [facility] ? Provider: ?? MESHA MCKNIGHT Pt. Name: ?? SHERIF FATIMARY Veda ? Acc #: ?[id number] ?Pt. MRN: ?[id number] ? Col Date: ?? 03/28/2013 ?/Sex: ?1945,(68 [...] MD PATHOLOGY/CYTOLOGY ORDERABLE S Performing Organization Address [facility]/State/[place] [address] [facility] Surgical Pathology Report (03/28/2013 12:03 PM EDT) Component Value Ref Test Analysis Performed At [facility] gist Range Method Time Signature Surgical [facility] Pathology ? [facility] Report ? Provider: ?? MESHA MCKNIGHT Pt. Name: ?? GREGORY FATIMA ? Acc #: ?[id number] ?Pt. MRN: ?[id number] ? Col Date: ?? 03/28/2013 ?/Sex: ?1945,(68 [...] areas of hemorrhage and ? calcifications. ? [facility] ? Provider: ?? MESHA MCKNIGHT Pt. Name: ?? GREGORY FATIMA ? Acc #: ?[id number] ?Pt. MRN: ?[id number] ? Col Date: ?? 03/28/2013 ?/Sex: ?1945,(68 years),Male ? Rec Date: ?? 03/28/2013 ?LOC: ?[facility] ? SURGICAL PATHOLOGY ? SECTIONS/PROCESSING: Real Estate Leasing Manager sections are subm itted. (R6) ? B [...] MD PATHOLOGY/CYTOLOGY ORDERABLE S Performing Organization Address [facility]/State/ZIP Code Phon e Number [place] [phone] CERNER MILLENNIUM Frozen Section Report (03/28/2013 12:03 PM EDT) Component Value Ref Test Analysis Performed At [facility] Range Method Time Signature Frozen CERNER Section ? [facility] ? Provider: ?? MESHA MCKNIGHT Pt. Name: ?? GREGORY FATIMA ? Acc #: ?[id number] ?Pt. MRN: ?[id number] ? Col Date: ?? 03/28/2013 ?/Sex: ?1945,(68 years),Male ? Rec Date: ?? 03/28/2013 ?LOC: ?[facility] ? FROZEN SECTION REPORT ? ---Frozen Section Report--- ? Part A - Intraoperati ve gross consultation was performed. ??The case was ? discussed by phone with Dr. Mcknight, and no frozen ? section was performed. ? 03/31/13 ??Verified by: ??César STRANGE, Ruben Yusuf, [facility] gist ? The attending [facility] gist whose electronic signature appears on this [...] Organization Address City/State/[place] [address] [facility] POCT Glucose (03/28/2013 12:00 PM EDT) P athologist Signature POC Glucose 134 60 - 199 CERNER mg/dL [facility] Comment: Supplemental ranges: <110 mg/dL before meals <200 mg/dL all other times of the day Specimen Anatomical Collection Method Collection Time Receive d Time (Source) Location / / Volume Laterality Blood specimen 03/28/2013 12:00 3 (specimen) PM EDT 12:00 PM EDT Mesha Mcknight MD POINT OF CARE TEST ORDERABLE S Performing Organization Address City/[facility]/ZIP Code [place] [address] [facility] Specimen to Pathology (surgical or derm) (03/28/2013 11:58 AM EDT) Specimen Anatomical Collection Method Collection Time Receive d Time (Source) Location / / Volume Laterality AP Specimen 03/28/2013 11:58 03/28/2013 AM EDT 11:58 AM EDT Narrative [facility] - 03/28/2013 11:58 AM EDT Specimen requisition ordered. ??Separate Pathology report to follow Mesha Mcknight MD PATHOLOGY/CYTOLOGY ORDERABLE S Performing Organization Address City/[facility]/ZIP Code [place] [address] [facility] Antibody screen (03/28/2013 9:37 AM EDT) Analysis Performed At Patho logist Time Signature Ab Screen Negative [facility]Ad[facility] ChapelENNIUM Expires at [id number] [facility] 2358 on: MILLENNIUM Specimen Anatomical Collection Method Collection Time Receive d Time (Source) Location / / Volume Laterality Blood specimen 03/28/2013 9:37 AM 013 9:37 (specimen) EDT AM EDT Resulting Agency Comment Spec In Lab Mesha Mcknight MD BLOOD BANK ORDERABLES Performing Organization Address City/State/ZIP Code Phon e Number [place] [phone] [facility] [address] CERNER MILLENNIUM ABO/Rh [...] Address City/State/ZIP Code Phon e Number [address] CERNER MILLENNIUM Differential, Automated [...] City/State/[place] [address] CERNER MILLENNIUM (ABNORMAL) Basic [...] supplied above were not validated at [facility]. Results from pediatri [...] Mcknight MD CHEMISTRY ORDERABLES Performing Organization Address City/[facility]/ZIP Code [place] [address] CERNER MILLENNIUM (ABNORMAL) CBC [...] Organization Address City/State/[place] [address] CERKERI CARVALHOIUM POCT Glucose (03/28/2013 9:17 AM EDT) P athologist Signature POC Glucose 108 60 - 199 CERNER mg/dL [facility] Comment: Supplemental ranges: <110 mg/dL before meals <200 mg/dL all other times of the day Specimen Anatomical Collection Method Collection Time Receive d Time (Source) Location / / Volume Laterality Blood specimen 03/28/2013 9:17 AM 013 9:17 (specimen) EDT AM EDT Mesha Mcknight MD POINT OF CARE TEST ORDERABLE S Performing Organization Address City/State/ZIP Code Phon e Number [address] [facility] Specimen to Pathology (surgical or derm) [...] Address City/State/ZIP Code Phon e Number [address] [facility] documented in this encounter Visit Diagnoses [...] override documented in this encounter Care Teams Running Rigger Relationship Specialty Start Date End Date Angela Holliday APRN PCP - General 01/25/13 04/15/15 [address] [place] [address] documented as of this encounter
--- OUTSIDE RECORDS SUMMARY | 2022-03-09 15:34 | XMS_ITS | Encounter Summary ---
:1945 Author Organization [place] [address] Care Team Providers Name Role Phone Som Holliday APRN Primary Care Provider Encounter Details Date Type Department Care Team Description 04/11/2014 Procedure visit G[facility], CONV Esophageal reflux [facility] Luz Winchester RN (Primary Dx) [place] [address] Social History Tobacco Use Types Packs/Day Years Used Date Former Smoker Alcohol Use Standard Drinks/Week Comments No 0 (1 standard drink = 0.6 oz pure alcoho l) Sex Assigned at Date Recorded Not on file documented as of this encounter Progress Notes Adalid Can MD - 04/13/2014 3:43 PM EDT ESOPHAGEAL MANOMETRY Don Fatima Male, 69 yrs, 1945 PCP: SOM HOLLIDAY FLIGHT FOLLOWER: NONE STUDY DATE: 04/11/14 PROVIDER: Adalid Can, [place] ([id number]) INDICATION Reflux; preoperative evaluation. METHODS Stationary esophageal manometry was performed with the Mister Bell esophageal motility system utilizing the Polygram software [...] of the esophagus. Adalid Can, PhD, MD sales person, [facility] [employer] Section of Gastroenterology and Hepatology [place] [address] [address] V: [phone] F: [phone] [facility]/gabriela CC/EC: PCP - staff msg copy 04/13/14 Henrique Taylor MD - fax copy 04/13/14 Luz Keller RN - 04/11/2014 8:14 AM EDT Esophageal manometry performed without difficulty and Was well tolerated. documented in this encounter Plan of Treatment Upcoming Encounters Date Type Specialty Care Team Description 03/26/2022 Office Visit Cardiology Vitaliy Nobles MD [facility] MEDICAL [facility] ER DR TADEO [place], [place] [address] (Wo rk) 06/10/2022 Office Visit Dermatology Laura Scherer MD [facility] DR TEJA GR-DERMAT [facility] [place] [address] (Wo rk) documented as of this encounter Visit Diagnoses Diagnosis Esophageal reflux - Primary documented in this encounter Care Teams Child Care Nurse Relationship Specialty Start Date End Date Som Holliday APRN PCP - General 01/25/13 04/15/[address] [place] [address] documented as of this encounter
--- OUTSIDE RECORDS SUMMARY | 2022-03-09 15:34 | XMS_ITS | Encounter Summary ---
:1945 Author Organization [place] [address] Care Team Providers Name Role Phone Angela Holliday APRN Primary Care Provider Reason for Visit Reason Comments Skin Check Encounter Details Date Type Department Care Team Description 07/31/2013 Follow-Up Dermatology at Rigoberto Forman eoplasm of unspecified nature of bone, soft tissue, and skin (Primary Dx); Abdelrahman HOOPER MD Seborrheic psoriasis- scalp and ingtergl uteal area; [address] [place] [address] [facility] Atypical [place] [address] [facility]DER[facility] [place], [place] [address] (Wo rk) Social History [...] encounter. Rigoberto Albarran MD Section of Dermatology [facility] documented in this encounter Plan of Treatment Upcoming Encounters Date Type Specialty Care Team Description 03/26/2022 Office Visit Cardiology Vitaliy Nobles MD [facility] DR TADEO [place], [place] [address] (Wo lissa) 06/10/2022 Office Visit Dermatology Laura Scherer MD [facility] DR TEJA GR-DERMAT OGY [place], [place] [address] (Mikayla alcaraz) Scheduled Orders [...] Test Analysis Performed At [facility] gist Range Method Time Signature Surgical CERNER Pathology ? [facility] Report ? Provider: ?? RIGOBERTO ALBARRAN III Pt. Name: ?? GREGORY HOANG ?A ? Acc #: ?[id number] ? Pt. ? Col Date: ?? 07/31/2013 [...] 0.9 x 0.8 x 0.2 cm. ? [facility] ? Provider: ?? DEION III, RIGOBERTO Pt. Name: ?? GREGORY HOANG ?A ? Acc #: ?[id number] ? Pt. ? Col Date: ?? 07/31/2013 [...] MD PATHOLOGY/CYTOLOGY ORDERABLE S Performing Organization Address City/[facility]/[place] [address] CERNER MILLENNIUM Specimen to [...] MD PATHOLOGY/CYTOLOGY ORDERABLE S Performing Organization Address City/[facility] [place] [address] CERNER MILLENNIUM documented in this encounter Visit Diagnoses Diagnosis Neoplasm of unspecified nature of bone, soft tissue, and skin - Primary Seborrheic psoriasis- scalp and ingtergl uteal area Other psoriasis Atypical nevus of abdominal wall Benign neoplasm of skin of trunk, except scrotum documented in this encounter Care Teams Bow Tacker Relationship Specialty Start Date End Date Angela Holliday APRN PCP - General 01/25/13 04/15/[address] [place] [address] documented as of this encounter
--- OUTSIDE RECORDS SUMMARY | 2022-03-09 15:34 | XMS_ITS | Encounter Summary ---
:1945 Author Organization [facility] [place] [address] Care Team Providers Name Role Phone Angela Holliday APRN Primary Care Provider Encounter Details Date Type Department Care Team Description 03/15/2013 Telephone General Surgery at [facility] Maddison Key, [place] [address] Social History Tobacco Use Types Packs/Day [...] Nobles MD [facility] ER DR TADEO [place], [place] [address] (Wo rk) 06/10/2022 Office Visit Dermatology Laura Scherer MD [facility] DR TEJA GR-DERMAT [place], [place] [address] (Wo rk) documented as of this encounter Visit Diagnoses Not on filedocumented in this encounter Care Teams Pump Technician Relationship Specialty Start Date End Date Angela Holliday APRN PCP - General 01/25/13 04/15/[address] [place] [address] documented as of this encounter
--- OUTSIDE RECORDS SUMMARY | 2022-03-09 15:34 | XMS_ITS | Encounter Summary ---
:1945 Author Organization [facility] [place] [address] Care Team Providers Name Role Phone MiyaAngela STACIE Primary Care Provider Reason for Visit Reason Comments Urinary Retention Encounter Details Date Type Department Care Team Description 05/16/2013 Follow-Up Urology at [facility] Blade Smith, Retention of urine [facility] (Primary Dx) [place] [address] UROLOGY DEPT [place] [id number] (Wo rk) Social History Tobacco Use Types [...] Vitaliy Nobles MD [facility] DR TADEO [place], [place] [address] (Wo rk) 06/10/2022 Office Visit Dermatology Laura Scherer MD [facility] DR TEJA GR-DERMAT [facility] [place], [place] [address] (Wo rk) documented as of this encounter Visit Diagnoses Diagnosis 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
--- OUTSIDE RECORDS SUMMARY | 2022-03-09 15:34 | XMS_ITS | Encounter Summary ---
:1945 Author Organization [facility] [place] [address] Care Team Providers Name Role Phone Angela Holliday APRN Primary Care Provider Encounter Details Date Type Department Care Team Description 04/05/2013 [place] [address] Social History Tobacco Use Types Packs/Day Years Used Date Former Smoker Alcohol Use Standard Drinks/Week Comments No 0 (1 standard drink = 0.6 oz pure alcoho l) Sex Assigned at Date Recorded Not on file documented as of this encounter Plan of Treatment Upcoming Encounters Date Type Specialty Care Team Description 03/26/2022 Office Visit Cardiology Vitaliy Nobles MD [facility] MEDICAL [facility] ER DR TADEO [place], [place] [address] (Wo rk) 06/10/2022 Office Visit Dermatology Laura Scherer MD [facility] ER DR TEJA GR-[facility] [place] [address] (Wo rk) documented as of this encounter Visit Diagnoses Not on filedocumented in this encounter Care Teams Clinical Technologist Relationship Specialty Start Date End Date Angela Holliday APRN PCP - General 01/25/13 04/15/15 4 [place] [address] documented as of this encounter
--- OUTSIDE RECORDS SUMMARY | 2022-03-09 15:34 | XMS_ITS | Encounter Summary ---
:1945 Author Organization [facility] [place] [address] Care Team Providers Name Role Phone Angela Holliday APRN Primary Care Provider Encounter Details Date Type Department Care Team Description 03/30/2013 Telephone General Surgery at [facility] Cliff Nevarez, [place] [address] Social History Tobacco Use Types Packs/Day [...] MEDICAL [facility] ER CARDIOLOGY [place], [place] [address] (Wo rk) 06/10/2022 Office Visit Dermatology Laura Scherer MD [facility] ER DR TEJA GR-DERMAT [place], [place] [address] (Wo rk) documented as of this encounter Visit Diagnoses Not on filedocumented in this encounter Care Teams Mc Kay Stitcher Relationship Specialty Start Date End Date Angela Holliday APRN PCP - General 01/25/13 04/15/[address] [place] [address] documented as of this encounter
--- OUTSIDE RECORDS SUMMARY | 2022-03-09 15:34 | XMS_ITS | Encounter Summary ---
:1945 Author Organization [place] [place] [address] Care Team Providers Name Role Phone MiyaAngela STACIE Primary Care Provider Encounter Details Date Type Department Care Team Description 04/26/2014 Office Visit Endocrinology at [facility] Albertina Palmer, Papillary thyroid [facility] MD [place] [address] CENTER [phone] ENDOCRINOLOGY DEPT [place] [address] Social History Tobacco Use Types Packs/Day Years [...] on [place]. Rosalind Palmer Endocrine Staff Physician [facility] Rosalind Palmer MD [...] one yr Rosalind Palmer Endocrine Staff Physician [facility] documented in this encounter Plan of Treatment Upcoming Encounters Date Type Specialty Care Team Description 03/26/2022 Office Visit Cardiology Vitaliy Nobles MD [facility] [address] T[address] [place], [place] [address] (Wo rk) 06/10/2022 Office Visit Dermatology aLura Scherer MD [facility] [address] TEJA GR-DERMAT OLOGY [place], [place] [address] (Wo rk) documented as of [...] BR et al. J Clin Endo Metab 1999;84:3516-0038). 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
--- OUTSIDE RECORDS SUMMARY | 2022-03-09 15:34 | XMS_ITS | Encounter Summary ---
:1945 Author Organization [facility] Address [address] [place] [address] Care Team Providers Name Role Phone Lovely Vicente MD Primary Care Provider Reason for Visit Reason Comments Skin Check Encounter Details Date Type Department Care Team Description 11/05/2015 Office Visit Dermatology at [facility] Forman benign nevi; Abdelrahman HOOPER MD Lentigines; [address] [facility] History of melanoma; [place] [address] Skin exam for malignant neoplasm [phone] [facility] [place], [place] [address] Social History Tobacco Use Types [...] Diagnostic, Drum (ACCU-CHEK COMPACT TEST) Strip by [facility].(Non- Drug; Combo Route) route 2 times daily. [...] encounter. Rigoberto Garcia MD Section of Dermatology [facility] documented in this encounter Plan of Treatment Upcoming Encounters Date Type Specialty Care Team Description 03/26/2022 Office Visit Cardiology Vitaliy Nobles MD [facility] [address] T[address] [place], [place] [address] (Wo rk) 06/10/2022 Office Visit Dermatology Laura Scherer MD [facility] DR [address] RD-DERMAT [place], [place] [address] (Wo rk) documented as of this encounter Visit Diagnoses Diagnosis Multiple benign nevi Benign neoplasm of skin, site unspecifie d Lentigines Other dyschromia History of melanoma Personal history of malignant melanoma o f skin Skin exam for malignant neoplasm Screening for malignant neoplasm of the skin documented in this encounter Care Teams Threshing Department Supervisor Relationship Specialty Start Date End Date Lovely Vicente MD PCP - General 04/16/[address] [place] [address] [address] [place] [address] documented as of this encounter
--- OUTSIDE RECORDS SUMMARY | 2022-03-09 15:34 | XMS_ITS | Encounter Summary ---
:1945 Author Organization [facility] [place] [address] Care Team Providers Name Role Phone Lovely Vicente MD Primary Care Provider Reason for Visit Reason Comments Thyroid Cancer Encounter Details Date Type Department Care Team Description 06/05/2015 Office Visit Endocrinology at [facility] Albertina Prescott, History of papillary [facility] MD Luz adenocarcinoma of [facility] thyroid (Primary Dx) [place] [address] CENTER [phone] [place] [address] Social History Tobacco Use Types Packs/Day Years [...] the thyroid gland were obtained using a Nexus eWater ultrasound machine. All measurements are given as AP x Transverse x Longitudinal Right Lobe: Absent Left Lobe: Absent Isthmus: Absent Central/Lateral neck: no morphologically abnormal lymph nodes. Impression: No sonographic evidence of recurrence. LUZ PRESCOTT MD Adult Education Managerclean energy policy analyst Section of Endocrinology [facility] Luz Prescott MD - 06/05/2015 8:21 AM [...] (ACCU-CHEK COMPACT TEST) Strip by [facility]Non-Drug; Combo Route) route 2 times daily. Yes [...] --f/u in 1 year LUZ PRESCOTT MD Adult Education Managerclean energy policy analyst Section of Endocrinology [facility] documented in this encounter Miscellaneous Notes Addendum [...] MD [facility] DR [place], [place] [address] (Wo rk) 06/10/2022 Office Visit Dermatology Laura Scherer MD [facility] DR TEJA GR-DERMAT [place], [place] [address] (Wo rk) documented as of [...] athologist Signature Thyroglobulin 0.6 <=54.9 CERNER ng/mL [facility] Comment: Interpret with caution. Tg levels [...] [place] et al. J Clin Endo Metab 1999;84:4163-9435). 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
--- OUTSIDE RECORDS SUMMARY | 2022-03-09 15:34 | XMS_ITS | Encounter Summary ---
:1945 Author Organization [place] [place] [address] Care Team Providers Name Role Phone NeilSom conner STACIE Primary Care Provider Reason for Visit Reason Comments Establish Care OBST GOITER Encounter Details Date Type Department Care Team Description 01/25/2013 Office Visit General Surgery at Mnany Mcknight er colloid, toxic, [facility] MD Eliseo nodular (Primary Dx) [facility] [place], [place] GENERAL SURGERY [address] [place], [place] [address] [phone] Social History Tobacco Use Types Packs/Day Years [...] the thyroid gland were obtained using a SonoSiClassting MicroMaxx and an HFL38/13-6 broadband linear array [...] on physical exam. ROS: No H/O asthma, [place], stroke, pulmonary embolus or phlebitis. Comprehensive review [...] MD [facility] CARDIOLOGY [place], [place] [address] (Wo rk) 06/10/2022 Office Visit Dermatology Laura Scherer MD [facility] DR TEJA GR-DERMAT OLOGY [place], [place] [address] (Wo rk) documented [...] 406 ms MUSE SYSTEM (Bezet) Calculated P Malo 52 degrees MUSE SYSTEM Calculated R Malo 0 degrees MUSE SYSTEM Calculated T Malo 40 degrees MUSE SYSTEM INTERPRETATION Normal sinus [...] storm documented in this encounter Care Teams Inoculator Relationship Specialty Start Date End Date Som Holliday APRN PCP - General 01/25/13 04/15/[address] [place] [address] documented as of this encounter
--- OUTSIDE RECORDS SUMMARY | 2022-03-09 15:34 | XMS_ITS | Encounter Summary ---
:1945 Author Organization [facility] [place] [address] Care Team Providers Name Role Phone Miya Angela STACIE Primary Care Provider Encounter Details Date Type Department Care Team Description 04/24/2013 Telephone Urology at [place] Zhen Bowman MD [facility] [place] [address] UROLOGY DEPT [phone] [place], [place] [address] (Wo rk) Social History Tobacco [...] MD [facility] [address] TADE[address] [place], [place] [address] (Wo rk) 06/10/2022 Office Visit Dermatology Laura Scherer MD [facility] DR TEJA GR-DERMAT OGY [place], [place] [address] (Wo rk) documented as of this encounter Visit Diagnoses Not on filedocumented in this encounter Care Teams Drop Wire Builder Relationship Specialty Start Date End Date Angela Holliday APRN PCP - General 01/25/13 04/15/[address] [place] [address] documented as of this encounter
--- OUTSIDE RECORDS SUMMARY | 2022-03-09 15:34 | XMS_ITS | Encounter Summary ---
:1945 Author Organization [facility] [place] [address] Care Team Providers Name Role Phone Angela Holliday APRN Primary Care Provider Encounter Details Date Type Department Care Team Description 03/30/2013 Telephone General Surgery at [facility] Cliff Nevarez, [place] [address] Social History Tobacco Use Types Packs/Day [...] Nobles MD [facility] [address] [place], [place] [address] (Wo rk) 06/10/2022 Office Visit Dermatology Laura Scherer MD [facility] DR TEJA GR-DERMAT OLOGY [place], [place] [address] (Wo rk) documented as of this encounter Visit Diagnoses Not on filedocumented in this encounter Care Teams Corporate Securities Research Analyst Relationship Specialty Start Date End Date Angela Holliday APRN PCP - General 01/25/13 04/15/[address] [place] [address] documented as of this encounter
--- OUTSIDE RECORDS SUMMARY | 2022-03-09 15:34 | XMS_ITS | Encounter Summary ---
:1945 [place] [address] Care Team Providers Name Role Phone MiyaLokeshAngela STACIE Primary Care Provider Encounter Details Date Type Department Care Team Description 03/28/2013 Anesthesia Event Main Operating Room Meredith Calvert MD [facility] [place] [address] [facility] Nolvia Riojas PA [facility] [place] [address] [place] [address] Anesthesia Record Procedure Summary Procedure Name [...] MD [facility] [address] T[address] [place], [place] [address] (Wo rk) 06/10/2022 Office Visit Dermatology Laura Scherer MD [facility] [address] TEJA GR-DERMAT OLOGY [place], [place] [address] (Wo rk) documented as of [...] Routine documented in this encounter Care Teams Lining Caser Relationship Specialty Start Date End Date Angela Holliday APRN PCP - General 01/25/13 04/15/[address] [place] [address] documented as of this encounter
--- OUTSIDE RECORDS SUMMARY | 2022-03-09 15:34 | XMS_ITS | Encounter Summary ---
:1945 [place] [address] Care Team Providers Name Role Phone Holley Hollidayica STACIE Primary Care Provider Encounter Details Date Type Department Care Team Description 03/28/2013 [facility]/29/2013 Barbara Gomes MD Dx) [facility] [place] [address] [phone] Social History Tobacco Use Types Packs/Day Years [...] please call the General Surgery nurse at [phone], since this may mean that you need morecalcium. Follow-up Appointment: Will be scheduled with Dr. Mcknight in 6 weeks Date and time as well as any required labs will be mailed to you Please call [phone] to confirm date and time of your [...] by calcium supplementation. Phone number for questions: [phone] before 5 PM weekdays [phone] after 5 PM and on weekends/holidays Please follow up with Urology as per their recommendations for Bob removal AttachmentsThe following attachments cannot be sent through Care Everywhere. THYROIDECTOMY: WHAT TO EXPECT AT HOME (IRAQI)URINARY CATHETER CARE: AFTER YOUR VISIT (IRAQI)documented in this encounter Medications at Time of [...] is a 68 y.o. male presents to [facility] today for total thyroidectomy. See full [...] Willams MD - 03/28/2013 3:43 PM EDT [facility] Operative Note Patient Name: Gregory Fatima : [id number] MR#: [id number] Case Date: 03/28/2013 Surgeon: Surgeon(s) and Role: [...] patient was extubated and taken to the [facility] in stable condition. At the end [...] Operative Note Patient Name: Gregory Fatima : [id number] MR#: [id number] Case Date: 03/28/2013 Surgeon: Surgeon(s) and Role: [...] Cardiology Vitaliy Nobles MD [facility] CARDIOLOGY [place], [place] [address] (Wo rk) 06/10/2022 Office Visit Dermatology Laura Scherer MD [facility] DR TEJA GR-DERMAT [facility] [place], [place] [address] (Wo rk) documented as of [...] Address City/State/ZIP Code Phon e Number [address] CERNER MILLENNIUM (ABNORMAL) POCT [...] [facility]/[place] [address] CERNER MILLENNIUM (ABNORMAL) POCT [...] Address City/State/ZIP Code Phon e Number [address] CERNER MILLENNIUM (ABNORMAL) POCT [...] [facility]/ZIP Code Phon e Number [address] CERNER MILLENNIUM (ABNORMAL) POCT [...] Address City/State/ZIP Code Phon e Number [address] CERNER MILLENNIUM (ABNORMAL) POCT [...] Organization Address City/State/[place] [address] CERNER MILLENNIUM (ABNORMAL) POCT [...] [facility]/ZIP Code Phon e Number [address] CERNER MILLENNIUM (ABNORMAL) POCT [...] Organization Address City/State/[place] [address] CERNER MILLENNIUM Specimen to Pathology (surgical or derm) (03/28/2013 12:14 PM EDT) Specimen Anatomical Collection Method Collection Time Receive d Time (Source) Location / / Volume Laterality AP Specimen 03/28/2013 12:14 03/28/2013 PM EDT 12:14 PM EDT Narrative [facility] - 03/28/2013 12:14 PM EDT Specimen requisition ordered. ??Separate Pathology report to follow Mesha Mcknight MD PATHOLOGY/CYTOLOGY ORDERABLE S Performing Organization Address City/State/[place] [address] [facility] Pathology Addendum Report (03/28/2013 12:03 PM EDT) Component Value Ref Test Analysis Performed At [facility] gist Range Method Time Signature Addendum [facility] Report ? [facility] ? Provider: ?? MESHA MCKNIGHT Pt. Name: ?? SHERIF FATIMARY Veda ? Acc #: ?[id number] ?Pt. MRN: ?[id number] ? Col Date: ?? 03/28/2013 ?/Sex: ?1945,(68 [...] ORDERABLE S Performing Organization Address [facility]/State/[place] [address] [facility] Surgical Pathology Report (03/28/2013 12:03 PM EDT) Component Value Ref Test Analysis Performed At [facility] gist Range Method Time Signature Surgical [facility] Pathology ? [facility] Report ? Provider: ?? MESHA MCKNIGHT Pt. Name: ?? GREGORY FATIMA ? Acc #: ?[id number] ?Pt. MRN: ?[id number] ? Col Date: ?? 03/28/2013 ?/Sex: ?1945,(68 [...] areas of hemorrhage and ? calcifications. ? [facility] ? Provider: ?? MESHA MCKNIGHT Pt. Name: ?? GREGORY FATIMA ? Acc #: ?[id number] ?Pt. MRN: ?[id number] ? Col Date: ?? 03/28/2013 ?/Sex: ?1945,(68 years),Male ? Rec Date: ?? 03/28/2013 ?LOC: ?[facility] ? SURGICAL PATHOLOGY ? SECTIONS/PROCESSING: Dietary Assistant sections are subm itted. (R6) ? [...] ORDERABLE S Performing Organization Address [facility]/State/ZIP Code Phon e Number [place] [id number] [address] CERNER MILLENNIUM Frozen Section Report (03/28/2013 12:03 PM EDT) Component Value Ref Test Analysis Performed At [facility] Range Method Time Signature Frozen CERNER Section ? [facility] ? Provider: ?? MESHA MCKNIGHT Pt. Name: ?? GREGORY FATIMA ? Acc #: ?[id number] ?Pt. MRN: ?[id number] ? Col Date: ?? 03/28/2013 ?/Sex: ?1945,(68 years),Male ? Rec Date: ?? 03/28/2013 ?LOC: ?[facility] ? FROZEN SECTION REPORT ? ---Frozen Section Report--- ? Part A - Intraoperati ve gross consultation was performed. ??The case was ? discussed by phone with Dr. Mcknight, and no frozen ? section was performed. ? 03/31/13 ??Verified by: ??César STRANGE, Ruben Yusuf, [facility] gist ? The attending [facility] gist whose electronic signature appears on [...] Organization Address City/State/[place] [address] [facility] POCT Glucose (03/28/2013 12:00 PM EDT) P athologist Signature POC Glucose 134 60 - 199 CERNER mg/dL [facility] Comment: Supplemental ranges: <110 mg/dL [...] [facility]/ZIP Code [place] [address] [facility] Specimen to Pathology (surgical or derm) (03/28/2013 11:58 AM EDT) Specimen Anatomical Collection Method Collection Time Receive d Time (Source) Location / / Volume Laterality AP Specimen 03/28/2013 11:58 03/28/2013 AM EDT 11:58 AM EDT Narrative [facility] M[facility] - 03/28/2013 11:58 AM EDT Specimen requisition ordered. ??Separate Pathology report to follow Mesha Mcknight MD PATHOLOGY/CYTOLOGY ORDERABLE S Performing Organization Address City/[facility]/ZIP Code [place] [address] [facility] Antibody screen (03/28/2013 9:37 AM EDT) Analysis Performed At Patho logist Time Signature Ab Screen Negative [facility] Expires at [id number] [facility] [address]8 on: MILLENNIUM Specimen Anatomical Collection Method Collection Time Receive d Time (Source) Location / / Volume Laterality Blood specimen 03/28/2013 9:37 AM 013 9:37 (specimen) EDT AM EDT Resulting Agency Comment Spec In Lab Mesha Mcknight MD BLOOD BANK ORDERABLES Performing Organization Address City/State/ZIP Code Phon e Number [place] [phone] [facility] [address] CERNER MILLENNIUM ABO/Rh Typing (03/28/2013 [...] Address City/State/ZIP Code Phon e Number [address] CERNER MILLENNIUM Differential, Automated [...] Organization Address City/State/[place] [address] CERNER MILLENNIUM (ABNORMAL) Basic [...] intervals supplied above were not validated at [facility]. Results from pediatri c patients should be [...] Mcknight MD CHEMISTRY ORDERABLES Performing Organization Address City/[facility]/ZIP Code [place] [address] CERNER MILLENNIUM (ABNORMAL) CBC [...] Organization Address City/State/[place] [address] CERKERI CARVALHOIUM POCT Glucose (03/28/2013 9:17 AM EDT) P athologist Signature POC Glucose 108 60 - 199 CERNER mg/dL [facility] Comment: Supplemental ranges: <110 mg/dL before meals <200 mg/dL all other times of the day Specimen Anatomical Collection Method Collection Time Receive d Time (Source) Location / / Volume Laterality Blood specimen 03/28/2013 9:17 AM 013 9:17 (specimen) EDT AM EDT Mesha Mcknight MD POINT OF CARE TEST ORDERABLE S Performing Organization Address City/State/ZIP Code Phon e Number [address] [facility] Specimen to Pathology (surgical or derm) (03/28/2013 8:55 AM EDT) Specimen Anatomical Collection Method Collection Time Receive d Time (Source) Location / / Volume Laterality AP Specimen 03/28/2013 8:55 AM 3 8:54 EDT AM EDT Narrative [facility] - 03/28/2013 8:55 AM E DT Specimen requisition ordered. ??Separate Pathology report to follow Mesha Mcknight MD PATHOLOGY/CYTOLOGY ORDERABLE S Performing Organization Address City/State/ZIP Code Phon e Number [address] [facility] documented in this encounter Visit Diagnoses [...] documented in this encounter Care Teams Machine Splitter Relationship Specialty Start Date End Date Angela Holliday APRN PCP - General 01/25/13 04/15/15 [address] [place] [address] documented as of this encounter
--- OUTSIDE RECORDS SUMMARY | 2022-03-09 15:34 | XMS_ITS | Encounter Summary ---
:1945 Author Organization [facility] [place] [address] Care Team Providers Name Role Phone Angela Holliday APRN Primary Care Provider Reason for Visit Reason Comments Other Encounter Details Date Type Department Care Team Description 08/01/2013 Telephone Dermatology at [facility] Rigoberto Garcia III, [address] [place] [address] [facility] [phone] TEJA MARIE-DERMAT [place], [place] [address] (Wo rk) Social History Tobacco [...] them. Component Value Surgical Pathology Final Report [facility] Provider: RIGOBERTO GARCIA III Pt. Name: DON HOANG Acc #: [id number] Pt. Col Date: 07/31/2013 /Sex: 1945,(68 years),Male Rec Date: 07/31/2013 LOC: [facility] SURGICAL PATHOLOGY ---Pathologic Diagnosis--- Skin, right abdomen, shave biopsy: Lentiginous compound nevus with moderate atypia of the intraepidermal component, extending to the peripheral specimen edge, ulcerated, associated with spongiosis and superficial perivascular lymphoeosinophilic infiltrate (see Comment). CR-0 08/01/13 BJM 08/01/13 Verified by: Ian STRANGE, PhD, [facility] Dermatopathologist (Electronic Signature) The attending pathologist [...] MD [facility] [address] T[address] [place], [place] [address] (Wo rk) 06/10/2022 Office Visit Dermatology Laura Scherer MD [facility] DR TEJA MARIE-DERMAT [place], [place] [address] (Wo rk) documented as of this encounter Visit Diagnoses Not on filedocumented in this encounter Care Teams Nanoelectronics Engineer Relationship Specialty Start Date End Date Angela Holliday APRN PCP - General 01/25/13 04/15/[address] [place] [address] documented as of this encounter
--- OUTSIDE RECORDS SUMMARY | 2022-03-09 15:34 | XMS_ITS | Encounter Summary ---
:1945 Author Organization [facility] [place] [address] Care Team Providers Name Role Phone Lovely Vicente MD Primary Care Provider Reason for Visit Reason Comments Skin Check Encounter Details Date Type Department Care Team Description 06/05/2016 Office Visit Dermatology at [facility] ist[facility] of melanoma; Abdelrahman HOOPER MD Seborrheic keratosis; [address] [facility] [place] (actinic keratosis); [place] [address] Multiple nevi; [phone] [facility] Scar [address]DERMATOLGY [place], [place] [address] Social History Tobacco Use Types [...] Diagnostic, Drum (ACCU-CHEK COMPACT TEST) Strip by [facility].(Non- Drug; Combo Route) route 2 times daily. [...] encounter. Rigoberto Garcia MD Section of Dermatology [facility] documented in this encounter Plan of Treatment Upcoming Encounters Date Type Specialty Care Team Description 03/26/2022 Office Visit Cardiology Vitaliy Nobles MD [facility] ER [address] TADEO [place], [place] [address] (Wo rk) 06/10/2022 Office Visit Dermatology Laura Scherer MD [facility] ER DR TEJA GR-DERMAT [facility] [place], [place] [address] (Wo rk) documented as of this encounter Visit Diagnoses Diagnosis History of melanoma Personal history of malignant melanoma o f skin Seborrheic keratosis Other seborrheic keratosis [place] (actinic keratosis) Actinic keratosis Multiple nevi Benign neoplasm of skin, site unspecifie d Scar Scar condition and fibrosis of skin documented in this encounter Care Teams Director Rehabilitation Program Relationship Specialty Start Date End Date Lovely Vicente MD PCP - General 04/16/15 [facility] [address] [place] [address] documented as of this encounter
--- OUTSIDE RECORDS SUMMARY | 2022-03-09 15:34 | XMS_ITS | Encounter Summary ---
:1945 Author Organization [place] [address] Care Team Providers Name Role Phone Lovely Vicente MD Primary Care Provider Reason for Visit Reason Comments Medication Refill Encounter Details Date Type Department Care Team Description 05/10/2015 Refill Endocrinology at [facility] Rosalind Covarrubias, [facility] [place] [address] [facility] [phone] ENDOCRINOLOGY [place], [place] 0[address] (Wo rk) [...] [facility] ER DR TADEO [place], [place] [address] (Wo rk) 06/10/2022 Office Visit Dermatology Laura Scherer MD [facility] ER DR TEJA GR-DERMAT [place], [place] [address] (Wo rk) documented as of this encounter Visit Diagnoses Not on filedocumented in this encounter Care Teams Exhibition Organiser Relationship Specialty Start Date End Date Lovely Vicente MD PCP - General 04/16/[address] [place] [address] documented as of this encounter
--- OUTSIDE RECORDS SUMMARY | 2022-03-09 15:34 | XMS_ITS | Encounter Summary ---
:1945 [address] [facility] [place] [address] Care Team Providers Name Role Phone Brody Berrios MD Primary Care Provider Reason for Visit Reason Comments Annual Exam Encounter Details Date Type Department Care Team Description 09/22/2011 Follow-Up Dermatology Arik Tipton Psoriasis (Primary Dx); [facility] MD Jorge Personal history of other malignant neop lasm of skin Drive [place] [phone] DERMATOLOGY DEPT . 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 His only complaints tail bone [...] changes: Arik Tipton MD Section of Dermatology [facility] documented in this encounter Plan of Treatment Upcoming Encounters Date Type Specialty Care Team Description 03/26/2022 Office Visit Cardiology Vitaliy Nobles MD [facility] [address] TADE[address] [place], [place] [address] (Wo rk) 06/10/2022 Office Visit Dermatology Laura Scherer MD [facility] DR TEJA GR-DERMAT [facility] [place], [place] [address] (Wo rk) documented as of this encounter Visit Diagnoses Diagnosis Psoriasis - Primary Other psoriasis Personal history of other malignant neop lasm of skin documented in this encounter Care Teams Medical Billing And Coding Instructor Relationship Specialty Start Date End Date Brdoy Berrios MD PCP - General 09/22/11 10/03/[address] [place] [address] [address] [place] [address] documented as of this encounter
--- OUTSIDE RECORDS SUMMARY | 2022-03-09 15:34 | XMS_ITS | Encounter Summary ---
:1945 Author Organization [facility] [place] [address] Care Team Providers Name Role Phone Angela Holliday APRN Primary Care Provider Reason for Referral Surgical (Routine) - Closed Specialty Diagnoses / Procedures Referred By Contact Refer red To Contact General Surgery Diagnoses Elijah Villagomez MD Colacchio, Thomas A, MD [address] [place] [address] [place] [address] [place] [address] Phone: Fax: Referral ID Status Reason Start Date Expiration Date Visits V isits Requested Authorized [id number] Closed Specialty 01/25/2013 07/24/2013 1 1 Service Requested Reason for Visit Reason Comments Thyroid Problem Encounter Details Date Type Department Care Team Description 01/25/2013 Office Visit Endocrinology at [facility] Elijah Fuentes Goiter (Primary Dx) [facility] [address] [place] [address] [place] [address] [phone] Social History Tobacco Use Types Packs/Day Years [...] History Nonsmoker 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 All other [...] the thyroid gland were obtained using a SonuMix.TVaxx and an HFL38/13-6 broadband linear array transducer. [...] Nobles MD [facility] DR TADE[address] [place], [place] [address] (Wo rk) 06/10/2022 Office Visit Dermatology Laura Scherer MD [facility] DR TE[address] GR-DERMAT [place], [place] [address] (Wo rk) Scheduled Referrals Name [...] Organization Address City/State/[place] [address] CERNER MILLENNIUM documented in this encounter Visit Diagnoses Diagnosis Goiter - Primary Goiter, unspecified documented in this encounter Care Teams Mortar Man Relationship Specialty Start Date End Date Angela Holliday APRN PCP - General 01/25/13 04/15/[address] [place] [address] documented as of this encounter
--- OUTSIDE RECORDS SUMMARY | 2022-03-09 15:34 | XMS_ITS | Encounter Summary ---
:1945 Author Organization [facility] [place] [address] Care Team Providers Name Role Phone Angela Holliday STACIE Primary Care Provider Encounter Details Date Type Department Care Team Description 04/04/2013 Telephone Urology at [facility] Parker Sanchez MD [facility] [place] [address] UROLOGY DEPT [phone] [place], [place] [address] (Wo rk) Social History Tobacco [...] Nobles MD [facility] ER DR CARLYLE [place] [address] (Wo rk) 06/10/2022 Office Visit Dermatology Laura Scherer MD [facility] ER DR [address] RD-DERMAT [place], [place] [address] (Wo rk) documented as of this encounter Visit Diagnoses Not on filedocumented in this encounter Care Teams Sweet Potato Disintegrator Relationship Specialty Start Date End Date Angela Holliday APRN PCP - General 01/25/13 04/15/[address] [place] [address] documented as of this encounter
--- OUTSIDE RECORDS SUMMARY | 2022-03-09 15:34 | XMS_ITS | Encounter Summary ---
:1945 Author Organization [facility] [place] [address] Care Team Providers Name Role Phone Angela Holliday APRN Primary Care Provider Encounter Details Date Type Department Care Team Description 04/30/2014 Orders Only Endocrinology at [facility] Albertina Palmer, Thyroid cancer [facility] Jorge Boyer MD (Primary Dx) [place] [address] [facility] [phone] CENTER ENDOCRINOLOGY DEPT [place], [place] [address] Social History Tobacco Use Types [...] Vitaliy Nobles MD [facility] ER CARDIOLOGY [place], [place] [address] (Wo rk) 06/10/2022 Office Visit Dermatology Laura Scherer MD [facility] [address] TEJA GR-DERMAT [place], [place] [address] (Wo rk) documented as of this encounter Visit Diagnoses Diagnosis Thyroid cancer - Primary Malignant neoplasm of thyroid gland documented in this encounter Care Teams Assembler Bonding Relationship Specialty Start Date End Date Angela Holliday APRN PCP - General 01/25/13 04/15/[address] [place] [address] documented as of this encounter
--- OUTSIDE RECORDS SUMMARY | 2022-03-09 15:36 | XMS_ITS | Encounter Summary ---
:1945 Author Organization [facility] Address [address] [place] [address] Care Team Providers Name Role Phone Unavailable Primary Care Provider Unavailable Encounter Details Date Type Department Care Team Description 03/05/2014 Hospital Encounter [facility]- Heather Unknown, Provider, [facility] 0 [facility] [phone] [place] [address] (Work) [phone] Social History Tobacco Use Types Packs/Day Years [...]
--- OUTSIDE RECORDS SUMMARY | 2022-03-09 15:36 | XMS_ITS | Encounter Summary ---
:1945 Author Organization [facility] Address [address] [place] [address] Care Team Providers Name Role Phone Unknown, Provider Primary Care Provider Encounter Details Date Type Department Care Team Description 07/11/[address] [facility] Shruthi Horowitz MD Laboratory Services - [address] [place] [address] [place] [address] 0 [place] [address] [phone] Social History Tobacco Use Types Packs/Day Years [...] 8:55 EST) Pathology Report: SURGICAL PATHOLOGY REPORT [facility] Reports generated via electronic interface contain sorin ginal data; LABORATORY however they are lacking the format of the original re port. SERVICES Caution should be taken when reading/interpreting unfo rmatted reports. Name: ? DON HOANG ? Accession #: ? [id number] ? : ? 1945 (Age: 69) ??M [...] 6.5 x 3.0 cm in aggreg ate). Armature And Rotor Winder sections are submitted in 1- 10 (approximately 40% of the specimen is submitted). Viry Nunez 07/12/2014 11:21 AM End of Report Specimen Performing Organization Address City/State/ZIP Code Phon e Number [facility] [address] [place] [address] SERVICES documented in this encounter Visit Diagnoses Not on filedocumented in this encounter Care Teams Calender Let Off Helper Relationship Specialty Start Date End Date Unknown, Provider, PCP - General 03/07/14 07/12/14 documented as of this encounter
--- OUTSIDE RECORDS SUMMARY | 2022-03-09 15:36 | XMS_ITS | Encounter Summary ---
:1945 Author Organization [facility] Address [address] [place] [address] Care Team Providers Name Role Phone Lovely Vicente MD Primary Care Provider Encounter Details Date Type Department Care Team Description 01/17/[address] [facility] Outr Resulting Lab, Pathology & Laboratory Provider [facility] [address] [place] [address] Social History Tobacco Use Types Packs/Day Years [...] nature PSA 2.9 0.0 - 6.5 ng/mL [facility] SERVICES Specimen Blood - Venous blood (substance) Narrative [facility] SERVICES - 01/17/2021 17:46 EDT NOTE: Serum PSA concentration should not be in terpreted as absolute evidence for the presence or absence of malignant disease. Assayed on Siemens ADVIA Centaur XPT usi ng chemiluminescent technology.??Values obtained by using different assay methods cannot be used interchangeably. Performing Organization Address City/State/ZIP Code Phon e Number [facility] [address] [place] [address] SERVICES documented in this encounter Visit Diagnoses Not on filedocumented in this encounter Care Teams Motion Picture Narrator Relationship Specialty Start Date End Date Lovely Vicente MD PCP - General 07/13/14 documented as of this encounter
--- OUTSIDE RECORDS SUMMARY | 2022-03-09 15:36 | XMS_ITS | Encounter Summary ---
:1945 Author Organization [facility] Address [address] [place] [address] Care Team Providers Name Role Phone Lovely Vicente MD Primary Care Provider Encounter Details Date Type Department Care Team Description 04/04/2021 Lab Requisition [facility] Outr Resulting Lab, Pathology & Laboratory Provider [facility] [address] [place] [address] Social History Tobacco Use Types Packs/Day Years [...] Pathologist Sig nature Salmonella PCR Negative Negative [facility] SERVICES Shigella/Enteroinvasive Negative Negative [facility] [place] R E. coli LABORATORY SERVICES HN LAB CAMPYLOBACTER PCR Negative Negative [facility] [place] ER LABORATORY SERVICES Shiga Toxin PCR Negative Negative [facility] SERVICES Specimen Feces - Specimen from rectum (specimen) Performing Organization Address City/State/ZIP Code Phon e Number [facility] [address] [place] [address] SERVICES documented in this encounter Visit Diagnoses Not on filedocumented in this encounter Care Teams Completions Manager Relationship Specialty Start Date End Date Lovely Vicente MD PCP - General 07/13/14 documented as of this encounter
--- OUTSIDE RECORDS SUMMARY | 2022-03-09 15:36 | XMS_ITS | Encounter Summary ---
:1945 Author Organization [facility] Address [address] [place] [address] Care Team Providers Name Role Phone Lovely Vicente MD Primary Care Provider Encounter Details Date Type Department Care Team Description 01/28/2022 Lab Requisition [facility] Outr Resulting Lab, Pathology & Laboratory Provider [facility] [address] [place] [address] Social History Tobacco Use Types Packs/Day Years Used Date Never Assessed Sex Assigned at Date Recorded Not on file documented as of this encounter Plan of Treatment Not on filedocumented as of this encounter Procedures Procedure Name Priority Date/Time Associated Diagnosis Comme nts COVID-19 TEST [facility] Today 01/27/2022 14:30 LAB PCR EDT COVID-19 TESTING Routine 01/27/2022 14:30 Results for this EDT procedure are i n the results section. documented in this encounter Results COVID-19 TEST [facility] LAB PCR (01/27/2022 14:30 EDT) Specimen Swab Performing Organization Address City/State/ZIP Code Phon e Number [facility] [address] [place] [address] SERVICES COVID-19 TESTING (01/27/2022 14:30 EDT) COVID-19 rt-PCR Negative Negative [facility] Result Comment: CENTER LABORATORY [...] was performed using the meliton SARS-CoV-2 assay ([employer] on the Meliton 6800 System Performing Lab Meliton 6800 [facility] Lab [facility] SERVICES Specimen Swab Performing Organization Address City/State/ZIP Code Phon e Number [facility] [address] [place] [address] SERVICES documented in this encounter Visit Diagnoses Not on filedocumented in this encounter Care Teams Dumper Mold Cleaner Relationship Specialty Start Date End Date Lovely Vicente MD PCP - General 07/13/14 documented as of this encounter
--- OUTSIDE RECORDS SUMMARY | 2022-03-09 15:36 | XMS_ITS | Encounter Summary ---
:1945 Author Organization [facility] Address [address] [place] [address] Care Team Providers Name Role Phone Lovely Vicente MD Primary Care Provider Encounter Details Date Type Department Care Team Description 04/04/2021 Lab Requisition [facility] Outr Resulting Lab, Pathology & Laboratory Provider [facility] [address] [place] [address] Social History Tobacco Use Types Packs/Day Years [...] (04/03/2021 12:15 EDT) Giardia and Cryptosporidium Cryptosporidium [facility] Cryptosporidium Antigen Neg and Antigen Neg and CENTER Giardia Antigen Neg Giardia Antigen Neg LABORATORY SERVICES Specimen Feces - Specimen from rectum (specimen) Performing Organization Address City/State/ZIP Code Phon e Number [facility] [address] [place] [address] SERVICES documented in this encounter Visit Diagnoses Not on filedocumented in this encounter Care Teams Spreader Box Operator Relationship Specialty Start Date End Date Lovely Vicente MD PCP - General 07/13/14 documented as of this encounter
--- OUTSIDE RECORDS SUMMARY | 2022-03-09 15:36 | XMS_ITS | Encounter Summary ---
:1945 Author Organization [facility] Address [address] [place] [address] Care Team Providers Name Role Phone Unknown, Provider Primary Care Provider Encounter Details Date Type Department Care Team Description 03/05/2014 Results Only [facility] Eris Taylor MD Laboratory Services - [address] [place] [address] [place] [address] [phone] Social History Tobacco Use Types Packs/Day Years [...] ? DON HOANG ? Accession #: ? [id number] ? : ? 1945 (Age: 68) ??M [...] Organization Address City/State/ZIP Code Phon e Number [facility] [address] [place] [address] SERVICES [facility] [address] [place] [address] documented in this encounter Visit Diagnoses Not on filedocumented in this encounter Care Teams Director Of Content Marketing Relationship Specialty Start Date End Date Unknown, Provider, PCP - General 03/07/14 07/12/14 documented as of this encounter
--- OUTSIDE RECORDS SUMMARY | 2022-03-09 15:36 | XMS_ITS | Clinical Summary ---
:[address] [facility] Address [address] [place] [address] Care Team Providers Name Role Phone Lovely [...] i n the results section. COVID-19 TEST [facility] Today 01/27/2022 14:30 LAB PCR EDT COVID-19 TESTING Routine 01/27/2022 14:30 Results for this EDT procedure are i n the results section. from Last 3 Months Results PSA TOTAL, DIAGNOSTIC (02/20/2022 9:04 EDT) Pathologist Sig nature PSA 2.7 <=6.5 ng/mL [facility] LABORATOR Y SERVICES Specimen Blood - Venous blood (substance) Narrative [facility] LABORATORY SERVICES - 02/20/2022 18:17 EDT NOTE: Serum PSA concentration should not be in terpreted as absolute evidence for the presence or absence of malignant disease. Assayed on Siemens ADVIA Centaur XPT usi ng chemiluminescent technology.??Values obtained by using different assay methods cannot be used interchangeably. Performing Organization Address City/State/ZIP Code Phon e Number [facility] [address] [place] [address] SERVICES COVID-19 TEST [facility] LAB PCR (01/27/2022 14:30 EDT) Specimen Swab Performing Organization Address City/[facility]/ZIP Code Phon e Number [facility]ORY [address] [place] [address] SERVICES COVID-19 TESTING (01/27/2022 14:30 EDT) COVID-19 rt-PCR Negative Negative [facility] Result Comment: CENTER LABORATORY This test [...] performed using the meliton SARS-CoV-2 assay ([employer] on the Meliton 6800 System Performing Lab Meliton 6800 [facility] Lab [facility] LABORATORY SERVICES Specimen Swab Performing Organization Address City/[facility]/ZIP Code Phon e Number [facility]ORY [address] [place] [address] SERVICES from Last 3 Months Care Teams Fha Underwriter Relationship Specialty Start Date End Date Lovely Vicente MD PCP - General 07/13/14
--- OUTSIDE RECORDS SUMMARY | 2022-03-09 15:36 | XMS_ITS | Encounter Summary ---
:1945 Author Organization [facility] Address [address] [place] [address] Care Team Providers Name Role Phone Lovely Vicente MD Primary Care Provider Encounter Details Date Type Department Care Team Description 08/11/2019 Lab Requisition [facility] Unknown, Provider, Pathology & Laboratory [facility] [address] [place] [address] Social History Tobacco Use Types Packs/Day Years [...] (08/11/2019 14:35 EST) Giardia and Cryptosporidium Cryptosporidium [facility] Cryptosporidium Antigen Neg and Antigen Neg and CENTER Giardia Antigen Neg Giardia Antigen Neg LABORATORY SERVICES Specimen Feces - Specimen from rectum (specimen) Performing Organization Address City/State/ZIP Code Phon e Number [facility] [address] [place] [address] SERVICES documented in this encounter Visit Diagnoses Not on filedocumented in this encounter Care Teams Revenue Specialist Relationship Specialty Start Date End Date Lovely Vicente MD PCP - General 07/13/14 documented as of this encounter
--- OUTSIDE RECORDS SUMMARY | 2022-03-09 15:36 | XMS_ITS | Encounter Summary ---
:1945 Author Organization [facility] Address [address] [place] [address] Care Team Providers Name Role Phone Lovely Vicente MD Primary Care Provider Encounter Details Date Type Department Care Team Description 08/11/2019 Lab Requisition [facility] Unknown, Provider, Pathology & Laboratory [facility] 111 [facility] [place] [address] Social History Tobacco Use Types Packs/Day Years [...] Pathologist Sig nature Salmonella PCR Negative Negative [facility]ORATORY SERVICES Shigella/Enteroinvasive Negative Negative [facility] R E. coli LABORATORY SERVICES HN LAB CAMPYLOBACTER PCR Negative Negative [facility] ER LABORATORY SERVICES Shiga Toxin PCR Negative Negative [facility]OR[facility]ORY SERVICES Specimen Feces - Specimen from rectum (specimen) Performing Organization Address City/State/ZIP Code Phon e Number [facility] [address] [place] [address] SERVICES documented in this encounter Visit Diagnoses Not on filedocumented in this encounter Care Teams Customer Care Specialist Relationship Specialty Start Date End Date Lovely Vicente MD PCP - General 07/13/14 documented as of this encounter
--- OUTSIDE RECORDS SUMMARY | 2022-03-11 11:23 | XMS_ITS | Encounter Summary ---
:1945 Author Organization [facility] Address [facility] [address] [place] [address] Care Team Providers Name Role Phone Lovely Vicente MD Primary Care Provider Reason for Visit Reason Onset Date Comments Medication Refill 03/06/2022 Metoprolol Succinate Encounter Details Date Type Department Care Team Description 03/06/2022 Refill Cardiology at [facility] Liz Poole PA Medication Refill [facility] (Or toprolol Succinate) [place] [address] Cardiology Dept [phone] [place], [place] [address] (Wo rk) Social History Tobacco [...] Vitaliy Nobles MD [facility] DR [place]LYLE [place], [place] [address] (Wo rk) 05/28/2022 Appointment Cardiology Zulma Dolan MD [facility] [address] [place] [address] (Wo rk) 05/28/2022 Laboratory Appointment Lab 05/28/2022 Office Visit Cardiology Zulma Dolan MD [facility] [place] [address] Liz Poole PA [facility] [place] [address] 06/10/2022 Office Visit Dermatology Laura Scherer MD [facility] ER DR TEJA GR-DERMAT [place], [place] [address] (Wo rk) documented as of this encounter Visit Diagnoses Diagnosis Chronic systolic heart failure Cardiomyopathy, ischemic Other specified forms of chronic ischemi c heart disease documented in this encounter Care Teams Element Winding Machine Tender Relationship Specialty Start Date End Date Lovely Vicente MD PCP - General 04/16/[address] [place] [address] documented as of this encounter
--- OUTSIDE RECORDS SUMMARY | 2022-03-11 11:23 | XMS_ITS | Encounter Summary ---
:1945 Author Organization [facility] Address [facility] [place] [address] Care Team Providers Name Role Phone Lovely Vicente MD Primary Care Provider Reason for Visit Reason Comments Prior Authorization Entresto 24-26mg tablets Encounter Details Date Type Department Care Team Description 02/20/2022 Specialty Pharmacy Pharmacy at [facility] Lamberto Smith Prior Authorization [facility] J (Entresto 24-26mg Drive tablets) [place] [id number] Social History Tobacco Use Types Packs/Day Years [...] Don Fatima Patient : 1945 Patient Address: [address] [place] [address] [place] [address] (home) Medication Name: ENTRESTO 24 MG-26 MG TABLET Medication ID: [id number] Patient Location: [facility] CARDIOLOGY 4A Patient Location Comment: Medication Strength Frequency Requested: Entresto 24-26mg tablets / One tablet twice daily Qty/Day Supply: New Start: New to Therapy Diagnosis & ICD-10 Code: Chronic systolic heart failure, I50.22 Subscriber Insurance: Gertrude [facility] Subscriber Insurance Comment: Fax: Physician: LIZ CARRERA Physician Comment : PA Status: NO PA REQUIRED Insurance mandated Pharmacy: Unknown Fillable at [facility]: Yes Insurance requirements/notes: None Copay: $119.01 (goes to coverage gap/odalys monteiro) Copay assistance: [place] Copay assistance comment: If cost isn't affordable, then we'll suggest enrollment in the currently open [facility] Heart Failure zoila, which provides up to $1000 in copay assistance. If zoila closes, or doesn't work out, then the patient can attempt enrollment in the medical dir assistance program, the [employer] Patient [employer] (NPAF). At which point we'd refer to [facility] for assistance with enrollment. Pharmacy staff will [...] MD [facility] DR [place], [place] [address] (Wo rk) 05/28/2022 Appointment Cardiology Zulma Dolan MD [facility] [address] [place] [address] (Wo rk) 05/28/2022 Laboratory Appointment Lab 05/28/2022 Office Visit Cardiology Zulma Dolan MD [facility] [place] [address] Liz Carrera PA [facility] [place] [address] 06/10/2022 Office Visit Dermatology Laura Scherer MD [facility] ER DR TEJA GR-DERMAT [place], [place] [address] (Wo rk) documented as of this encounter Visit Diagnoses Not on filedocumented in this encounter Care Teams Die Stamping Press Operator Relationship Specialty Start Date End Date Lovely Vicente MD PCP - General 04/16/[address] [place] [address] documented as of this encounter
--- OUTSIDE RECORDS SUMMARY | 2022-03-11 11:23 | XMS_ITS | Encounter Summary ---
:1945 Author Organization [facility] [place] [address] Care Team Providers Name Role Phone Lovely Vicente MD Primary Care Provider Encounter Details Date Type Department Care Team Description 02/19/2022 Laboratory Appointment Lab 3L [facility] [place] [id number] Social History Tobacco Use Types Packs/Day Years [...] Vitaliy Nobles MD [facility] [address] [place] [place], [place] [address] (Wo rk) 05/28/2022 Appointment Cardiology Zulma Dolan MD [facility] [address] [place] [address] (Wo rk) 05/28/2022 Laboratory Appointment Lab 05/28/2022 Office Visit Cardiology Zulma Dolan MD [facility] [place] [address] Liz Poole PA [facility] [place] [address] 06/10/2022 Office Visit Dermatology Laura Scherer MD [facility] ER DR [address] [place], [place] [address] (Wo rk) documented as [...] (ABNORMAL) Differential, Automated (02/19/2022 8:06 AM EDT) [facility] Method Time Signature Neutrophils % 76.0 % [facility] LABORATORY Neutr Abs (ANC) 5.49 1.70 - [facility] 6.10 [facility] x10(3)/[facility] LABORATORY Lymphocytes % 10.8 % [facility] LABORATORY Lymphocytes Abs 0.8 (L) 0.9 - 3.2 [facility] x10(3)/[facility] LABORATORY Monocytes % 10.2 % [facility] LABORATORY Monocyte Abs 0.7 0.3 - 0.9 [facility] x10(3)/[facility] LABORATORY Eosinophils % 1.2 % [facility] LABORATORY Eosinophils Abs 0.1 0.0 - 0.4 [facility] x10(3)/[facility] LABORATORY Basophils % 0.8 % [facility] LABORATORY Basophils Abs 0.1 0.0 - 0.1 [facility] x10(3)/[facility] LABORATORY Immature Gran % 1.00 % [...] 0.00 - 0.04 x10(3)/[facility] LABORATORY Specimen Anatomical Collection Method Collection Time Receive d Time (Source) Location / / Volume Laterality Blood 02/19/2022 8:06 AM 8:09 EDT AM EDT Resulting Agency Comment Spec In Lab Liz BROWN HEMATOLOGY ORDERABLES Performing Organization Address City/State/ZIP Code Phon e Number [place] [phone] HOSPITAL LAB[address]ORY [address] (ABNORMAL) Hemogram (02/19/2022 8:06 AM EDT) Analysis Performed At Patho logist Time Signature WBC 7.2 4.0 - 9.5 [facility] x10(3)/[facility] LABORATORY RBC 4.41 (L) 4.58 - [facility] 5.54 [facility] x10(6)/[facility] LABORATORY Hemoglobin 13.2 (L) 13.7 - [facility] 16.5 g/dL [facility] LABORATORY Hematocrit 40.9 40.5 - [facility] 48.5 % [facility] MCV 92.7 82.9 - [facility] 93.1 [facility] LABORATORY MCH 29.9 27.5 - [facility] 32.1 pg [facility] LABORATORY MCHC 32.3 32.0 - [facility] 35.7 g/dL [facility] LABORATORY Platelets 191 145 - 357 [facility] x10(3)/[facility] LABORATORY RDWSD 53.6 (H) 36.0 - [facility] 45.0 [facility] LABORATORY RDWCV 15.6 (H) 11.4 - [facility] 13.8 % [facility] LABORATORY MPV 8.7 7.6 - 12.9 [facility] LABORATORY nRBC % Auto 0.0 % [facility] LABORATORY nRBC Abs Auto 0.000 0.000 - [facility] 0.000 [facility] x10(3)/[facility] LABORATORY Specimen Anatomical Collection Method Collection Time Receive d Time (Source) Location / / Volume Laterality Blood 02/19/2022 8:06 AM 2 8:09 EDT AM EDT Resulting Agency Comment Spec In Lab Liz BROWN HEMATOLOGY ORDERABLES Performing Organization Address City/[facility]/ZIP Code Phon e Number [address] (ABNORMAL) pro-Brain Natriuretic Peptide [...] Organization Address City/State/[place] [address] (ABNORMAL) Basic Metabolic Panel (non-fasting) (02/19/2022 8:06 AM EDT) P athologist Signature Glucose Lvl 139 65 - 199 [facility] mg/dL [facility] LABORATORY Comment: Diabetes: >=200 mg/dL plus symp toms BUN 31 (H) 10 - 20 mg/dL [facility] LABORATORY Creatinine 1.53 (H) 0.80 - 1.50 mg/dL [facility] LABORATORY Sodium 142 135 - 145 mmol/L [facility] LABORATORY Potassium 5.4 (H) 3.5 - 5.0 mmol/L [facility] [...] LABORATORY Calcium 9.7 8.5 - 10.5 mg/dL [facility] [...] Organization Address City/State/[place] [address] documented in this encounter Visit Diagnoses Diagnosis Chronic systolic heart failure documented in this encounter Care Teams Reach Lift Truck Driver Relationship Specialty Start Date End Date Lovely Vicente MD PCP - General 04/16/[address] [place] [address] documented as of this encounter
--- OUTSIDE RECORDS SUMMARY | 2022-03-11 11:23 | XMS_ITS | Encounter Summary ---
:1945 Author Organization [facility] [place] [address] Care Team Providers Name Role Phone Lovely Vicente MD Primary Care Provider Reason for Visit Auth/Cert Specialty Diagnoses / Procedures Referred By Contact Refer red To Contact Diagnoses ASCVD (arteriosclerotic cardiovascular disease) [I25.10] Vitaliy Nobles MD [facility] Procedures PRO PERC TRLUML CORONARY STENT W/ANGIO ONE ART/BRANCH CARDIAC CATHETERIZATION STENT PLACEMENT-SINGLE MAJOR CORONARY ARTERY OR BRANCH [facility] [place] [address] Referral ID Status Reason Start Date Expiration Date Visits Requ ested Visits Authorized [id number] 1 1 Encounter Details Date Type Department Care Team Description 01/30/2022 Laboratory Lab 3L Katalina ASCVD (arterios clerotic Appointment [facility] cardiovas cular disease) [place] [address] Social History Tobacco Use Types Packs/Day Years [...] MD [facility] CARDIOLOGY [place], [place] [address] (Wo rk) 05/28/2022 Appointment Cardiology Zulma Dolan MD [facility] [place], [place] [address] (Wo rk) 05/28/2022 Laboratory Appointment Lab 05/28/2022 Office Visit Cardiology Zulma Dolan MD [facility] [place] [address] Liz Poole PA [facility] [place] [address] 06/10/2022 Office Visit Dermatology Laura Scherer MD [facility] DR [address] [place], [place] [address] (Wo rk) documented as of [...] (ABNORMAL) Differential, Automated (01/30/2022 7:19 AM EDT) [facility] Method Time Signature Neutrophils % 77.9 % [facility] LABORATORY Neutr Abs (ANC) 5.31 1.70 - [facility] 6.10 [facility] x10(3)/[facility] LABORATORY Lymphocytes % 12.0 % [facility] LABORATORY Lymphocytes Abs 0.8 (L) 0.9 - 3.2 [facility] x10(3)/[facility] LABORATORY Monocytes % 8.1 % [facility] LABORATORY Monocyte Abs 0.6 0.3 - 0.9 [facility] x10(3)/[facility] LABORATORY Eosinophils % 0.4 % [facility] LABORATORY Eosinophils Abs 0.0 0.0 - 0.4 [facility] x10(3)/[facility] LABORATORY Basophils % 0.6 % [facility] LABORATORY Basophils Abs 0.0 0.0 - 0.1 [facility] x10(3)/[facility] LABORATORY Immature Gran % 1.00 % [facility] [...] Abs 0.07 (H) 0.00 - 0.04 x10(3)/[facility] LABORATORY Specimen Anatomical Collection Method Collection Time Receive d Time (Source) Location / / Volume Laterality Blood 01/30/2022 7:19 AM 7:21 EDT AM EDT Resulting Agency Comment Spec In Lab Zulma BROWN HEMATOLOGY ORDERABLES Performing Organization Address City/State/[place] [address] (ABNORMAL) Hemogram (01/30/2022 7:19 AM EDT) Analysis Performed At Patho logist Time Signature WBC 6.8 4.0 - 9.5 [facility] x10(3)/[facility] LABORATORY RBC 4.32 (L) 4.58 - [facility] 5.54 [facility] x10(6)/[facility] LABORATORY Hemoglobin 13.0 (L) 13.7 - [facility] 16.5 g/dL [facility] LABORATORY Hematocrit 39.8 (L) 40.5 - [facility] 48.5 % [facility] LABORATORY MCV 92.1 82.9 - [facility] 93.1 [facility] LABORATORY MCH 30.1 27.5 - [facility] 32.1 pg [facility] LABORATORY MCHC 32.7 32.0 - [facility] 35.7 g/dL [facility] LABORATORY Platelets 172 145 - 357 [facility] x10(3)/[facility] LABORATORY RDWSD 54.5 (H) 36.0 - [place] 45.0 [facility] LABORATORY RDWCV 16.2 (H) 11.4 - [place] 13.8 % [facility] LABORATORY MPV 9.0 7.6 - 12.9 [facility] LABORATORY nRBC % Auto 0.0 % [facility] LABORATORY nRBC Abs Auto 0.000 0.000 - [facility] 0.000 [facility] x10(3)/[facility] LABORATORY Specimen Anatomical Collection Method Collection Time Receive d Time (Source) Location / / Volume Laterality Blood 01/30/2022 7:19 AM 7:21 EDT AM EDT Resulting Agency Comment Spec In Lab Zulma BROWN HEMATOLOGY ORDERABLES Performing Organization Address City/State/ZIP Code Phon e Number [place] [id number] HOSPITAL LABORATORY Drive (ABNORMAL) Basic Metabolic Panel (non-fasting) (01/30/2022 7:19 AM EDT) P athologist Signature Glucose Lvl 237 (H) 65 - 199 [facility] mg/dL [facility] LABORATORY Comment: Diabetes: >=200 mg/dL plus symp toms BUN 34 (H) 10 - 20 mg/dL [facility] LABORATORY Creatinine 1.45 0.80 - 1.50 mg/dL [facility] LABORATORY Calcium 9.5 8.5 - 10.5 mg/dL [facility] LABORATORY Estimated GFR 50 (L) [...] City/State/[place] [address] documented in this encounter Visit Diagnoses Diagnosis ASCVD (arteriosclerotic cardiovascular d isease) Unspecified cardiovascular disease documented in this encounter Care Teams Drama Professor Relationship Specialty Start Date End Date Lovely Vicente MD PCP - General 04/16/[address] [place] [address] documented as of this encounter
--- OUTSIDE RECORDS SUMMARY | 2022-03-11 11:23 | XMS_ITS | Encounter Summary ---
:1945 Author Organization [facility] [address] Care Team Providers Name Role Phone Lovely Vicente MD Primary Care Provider Reason for Referral Diagnostic Test (Routine) - New Request Specialty Diagnoses / Procedures Referred By Contact Refer red To Contact Cardiology Diagnoses Chronic systolic heart failure Liz Carrera PA [facility] Non-Inv Card Lab Procedures Echocardiogram Transthoracic [facility] [place] [address] [place] [address] Fax: Referral ID Status Reason Start Expiration Visits Visits Date Date Requested Authorized [id number] New Request Specialty 02/19/2022 02/19/2023 1 1 Service Requested Encounter Details Date Type Department Care Team Description 02/19/2022 Office Visit Cardiology at [facility] Liz Carrera, Chronic systolic heart [facility] [place] [address] Cardiology Dept [phone] [place], [place] [address] Social History Tobacco Use Types [...] As per DC Summary - Admitted to [facility] on 12/08/21, transferred from [facility], respiratory distress with hypoxia 86% on [...] mg PO daily in place of Lasix. [place] is new for him and he will [...] Antiplatelet (DAPT) Recommendations above ? TTE from [facility] 12/08/21 ?? 07/28/2019 Echocardiogram: SUMMARY: 1. [...] regurgitation present. 07/07/2019 - 07/21/2019 Zio Patch Aerodynamics Engineer The patient had a minimum heart [...] 12.5 mg daily 6. Post-op atrial fibrillation [id number] (CHF, HTN, DM, vascular disease, thromboembolism) Eliquis 7. PAD 08/06/2017: Right 1st, 2nd, 3rd toe amputation 08/11/2017: Left??femoral arterial access, RLE??angiogram, Balloon angioplasty of R PT 10/25/2017: right popliteal-pedal bypass at [facility] 8. Hypothyrodism S/p thyroidectomy for goiter Levothyroxine [...] MD [facility] [address] [place], [place] 0[address] (Wo rk) 05/28/2022 Appointment Cardiology Zulma Dolan MD [facility] [place], [place] 0[address] (Wo rk) 05/28/2022 Laboratory Appointment Lab 05/28/2022 Office Visit Cardiology Zulma Dolan MD [facility] [place] [address] Liz Carrera PA [facility] [place] [address] 06/10/2022 Office Visit Dermatology Laura Scherer MD [facility] DR TE[address]MAT [place], [place] 0375 (Wo rk) Scheduled Orders Name Type Priority Associated Order Schedule Diagnoses Echocardiogram Echocardiography Routine Chronic systolic Expec vlad: Transthoracic heart failure 05/22/2022 (Approximate), Expires: 11/21/2022 documented as of this encounter Results (ABNORMAL) Basic Metabolic Panel (non-fasting) (02/19/2022 8:06 AM EDT) athologist Signature Glucose Lvl 139 65 - 199 [facility] mg/dL [facility] LABORATORY Comment: Diabetes: >=200 mg/dL plus symp toms BUN 31 (H) 10 - 20 mg/dL [facility] LABORATORY Creatinine 1.53 (H) 0.80 - 1.50 mg/dL [facility] LABORATORY Sodium 142 135 - 145 mmol/L [facility] LABORATORY Potassium 5.4 (H) 3.5 - 5.0 mmol/L [facility] [...] 15 mmol/L [facility] LABORATORY Calcium 9.7 8.5 - 10.5 mg/dL [facility] necessary, consider alternative methods of GFR estimation sih ch as a 24-hour urine creatinine clearance. [...] Organization Address City/State/[place] [address] (ABNORMAL) pro-Brain Natriuretic Peptide [...] Organization Address City/State/[place] [address] documented in this encounter Visit Diagnoses Diagnosis Chronic systolic heart failure documented in this encounter Care Teams Fertilizer Mixer Relationship Specialty Start Date End Date Lovely Vicente MD PCP - General 04/16/[address] [place] [address] [address] [place] [address] documented as of this encounter
--- OUTSIDE RECORDS SUMMARY | 2022-03-11 11:23 | XMS_ITS | Encounter Summary ---
:1945 Author Organization [facility] [place] [address] Care Team Providers Name Role Phone Lovely Vicente MD Primary Care Provider Encounter Details Date Type Department Care Team Description 02/23/2022 Refill Cardiology at [facility] Liz Poole PA [facility] [place] [address] Cardiology Dept [phone] [place], [place] 0[address] (Wo rk) Social History Tobacco [...] Oneill RPH Transfer of Services Don Fatima [address] [place] [address] [place] [address] Telephone Information: Work Phone Not on file. [facility] has received a prescription for Entresto for patient Mr. Don Fatima 76 y.o. (1945). The patient requests the prescription to be filled with [facility]. We spoke to patient to notify of this change and to provide number to reach the new filling pharmacy. A copyof patient's medication profile was offered to the accepting pharmacy. Additional instructions provided to patient about transfer: no The patient has been advised to call the [facility] at [phone] with any questionsor concerns on this referral. Thank you, Oxana Oneill RPH 02/23/22 4:26 PM Patient understands no changes to current drug regimen were made at this time. documented in this encounter Plan of Treatment Upcoming Encounters Date Type Specialty Care Team Description 03/26/2022 Office Visit Cardiology Vitaliy Nobles MD [facility] [address] [place], [place] 0[address] (Wo rk) 05/28/2022 Appointment Cardiology Zulma Dolan MD [facility] [place], [place] [address] (Wo rk) 05/28/2022 Laboratory Appointment Lab 05/28/2022 Office Visit Cardiology Zulma Dolan MD [facility] [place] [address] Liz Poole PA [facility] [place] [address] 06/10/2022 Office Visit Dermatology Laura Scherer MD [facility] DR [address] [place], [place] 0[address] (Wo rk) documented as of this encounter Visit Diagnoses Not on filedocumented in this encounter Care Teams Manager Planning Relationship Specialty Start Date End Date Lovely Vicente MD PCP - General 04/16/15 [facility] [address] [place] [address] documented as of this encounter
--- OUTSIDE RECORDS SUMMARY | 2022-03-11 11:23 | XMS_ITS | Clinical Summary ---
:1945 Author Organization [facility] [place] [address] Care Team Providers Name Role Phone Lovely [...] Specialty Care Team Description 03/06/2022 Refill Cardiology Virgilio, Medication Refi ll STEPHANIE Hill (Metoprolol Suc cinate) 03/06/2022 Refill Cardiology Virgilio Medication Refi ll Liz PA 03/06/2022 Telephone Cardiology Martha Comer Follow-up (Richelle Wyatt RN Start) 02/26/2022 Telephone Cardiology Martha Comer Follow-up (Richelle Wyatt RN start) 02/24/2022 Notes Only Care Management Morgan Wood 02/24/2022 Orders Only Cardiology Virgilio Chronic systoli c heart Liz PA failure 02/23/2022 Telephone Cardiology Martha Comer Follow-up (Emerald Wyatt RN adjustment and new med) 02/23/2022 Refill Cardiology Liz Poole PA 02/20/2022 Specialty Pharmacy Pharmacy Sarah, Prior Aut horization Lamberto Martinez (Entresto 24-26 mg tablets) 02/19/2022 Office Visit Cardiology Virgilio Chronic systoli c heart Liz, PA failure 02/19/2022 Laboratory Lab Chronic systoli c heart Appointment failure 01/30/2022 Surgery Cardiology Vitaliy Nobles, CARDIAC CATHET ERIZATION 01/30/2022 Laboratory Lab ASCVD (arterios clerotic Appointment cardiovascular disease) 01/30/2022 Hospital Encounter Vitaliy Nobles, ASCVD (a rteriosclerotic cardiovascular disease); 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; ASHD (arteriosc lerotic heart disease) 01/28/2022 Orders Only Cardiology Teressa ASCVD (arterios clerotic STEPHANIE Maya cardiovascular disease) 01/28/2022 Telephone Cardiology Chitra Angela RN 12/30/2021 Notes Only Cardiology Rebeka Deluca RN 12/25/2021 Office Visit Cardiology Vendetti, Chronic systoli c heart Liz, PA failure 12/25/2021 Laboratory Lab Chronic systoli c heart Appointment failure 12/24/2021 Telephone Dayami Buckner Ching 12/24/2021 Orders Only Cardiology Teressa, ASCVD (arterios clerotic STEPHANIE Maya cardiovascular disease) 12/15/2021 Telephone Cardiology Barbara Mera RN 12/12/2021 Refill Cardiology Valerie, Medication Refi ll STEPHANIE Tellez (Torsemide) 12/12/2021 Telephone Cardiology Barbara Mera RN 12/10/2021 Surgery Cardiology Vitaliy Nobles, CARDIAC CATHET KENDY STRANGE 12/08/2021 - Hospital Encounter Iker Cuevas Non-ST e levation myocardial infarction (NSTEMI); 12/12/[address] elevation myocardial infarction (STEM I), unspecified artery; Alexi, Acute HFrEF (he art failure with reduced ejection fraction) Ifeanyi Wyatt MD from Last 3 Months Immunizations Name [...] Nobles MD [facility] CARDIOLOGY [place], [place] [address] (Wo rk) 05/28/2022 Appointment Cardiology Zulma Dolan MD [facility] [place], [place] [address] (Wo rk) 05/28/2022 Laboratory Appointment Lab 05/28/2022 Office Visit Cardiology Zulma Dolan MD [facility] [place] [address] Liz Poole PA [facility] [place] [address] 06/10/2022 Office Visit Dermatology Laura Scherer MD [facility] [address] OLOGY [place], [place] [address] (Wo rk) Health Maintenance Due Date Last Done Comments Covid-19 Vaccine (#1) 1950 Pneumoccocal Vaccine: 65+ (1 - PCV) 1952 Hepatitis C Screening 1964 Tdap adult 1965 Tetanus vaccine 1965 Zoster vaccine (1 of 2) 1996 Colonoscopy 01/16/2019 01/16/2014, 01/16/2014 Influenza (Flu) vaccine (1 of 1 - 03/26/2022 03/29/2013, Influenza standard series) Medical Devices Implanted Type Area Inclusion Special Educator Device Shelf Model / Identifier Expiration Serial / Date Lot Cable,Cut,Edg,Blnt,Ss,3tpr ([id number]) - [id number] IMPLANTS Midline: [employer] 04/01/2022 [id number] / Implanted: Qty: 4 on 07/07/2017 by Yuan Retana MD at [facility] [employer] - / [id number] Procedures Procedure Name Priority Date/Time Associated Diagnosis [...] (03/05/2022 7:04 AM EDT)Only the most recent of7 resultswithin [...] (02/19/2022 8:06 AM EDT)Only the most recent of8 results within the time period is included. Analysis Performed At Patho logist Time Signature WBC 7.2 4.0 - 9.5 [facility] RYAN x10(3)/[facility] LABORATORY RBC 4.41 (L) 4.58 - BARBARA RYAN 5.54 [facility] x10(6)/[facility] LABORATORY Hemoglobin 13.2 (L) 13.7 - BARBARA RYAN 16.5 g/dL [facility] LABORATORY Hematocrit 40.9 40.5 - BAR[place]A RYAN 48.5 % [facility] LABORATORY MCV 92.7 82.9 - [place] RYAN 93.1 [facility] LABORATORY MCH 29.9 27.5 - [place] RYAN 32.1 pg [facility] LABORATORY MCHC 32.3 32.0 - [place] RYAN 35.7 g/dL [facility] LABORATORY Platelets 191 145 - 357 [place]A RYAN x10(3)/[facility] LABORATORY RDWSD 53.6 (H) 36.0 - BAR[place] RYAN 45.0 [facility] LABORATORY RDWCV 15.6 (H) 11.4 - [facility] 13.8 % [facility] LABORATORY MPV 8.7 7.6 - 12.9 [facility] LABORATORY nRBC % Auto 0.0 % [facility] LABORATORY nRBC Abs Auto 0.000 0.000 - [facility] 0.000 [facility] x10(3)/[facility] LABORATORY Specimen Anatomical Collection Method Collection Time Receive d Time (Source) Location / / Volume Laterality Blood 02/19/2022 8:06 AM 8:09 EDT AM EDT Resulting Agency Comment Spec In Lab Liz BROWN HEMATOLOGY ORDERABLES Performing Organization Address City/State/ZIP [place] [address] (ABNORMAL) Differential, Automated (02/19/2022 8:06 AM EDT)Only the most recent of8 resultswithin the time period is included. [facility] gist Method Time Signature Neutrophils % 76.0 % [facility] LABORATORY Neutr Abs (ANC) 5.49 1.70 - [facility] 6.10 [facility] x10(3)/[facility] LABORATORY Lymphocytes % 10.8 % [facility] LABORATORY Lymphocytes Abs 0.8 (L) 0.9 - 3.2 [facility] x10(3)/[facility] LABORATORY Monocytes % 10.2 % [facility] LABORATORY Monocyte Abs 0.7 0.3 - 0.9 [facility] x10(3)/[facility] LABORATORY Eosinophils % 1.2 % [facility] LABORATORY Eosinophils Abs 0.1 0.0 - 0.4 [facility] x10(3)/[facility] LABORATORY Basophils % 0.8 % [facility] LABORATORY Basophils Abs 0.1 0.0 - 0.1 [facility] x10(3)/[facility] LABORATORY Immature Gran % 1.00 [...] Abs 0.07 (H) 0.00 - 0.04 x10(3)/mcL [facility] LABORATORY Specimen Anatomical Collection Method Collection Time Receive d Time (Source) Location / / Volume Laterality Blood 02/19/2022 8:06 AM 2 8:09 EDT AM EDT Resulting Agency Comment Spec In Lab iLz BROWN HEMATOLOGY ORDERABLES Performing Organization Address City/[facility]/ZIP Code [place] [address] (ABNORMAL) pro-Brain Natriuretic Peptide (02/19/2022 8:06 AM EDT)Only the most recent of2 resultswithin the time period is included. P athologist Signature ProBNP 984 (H) <=449 pg/mL [facility] LABORATORY Specimen Anatomical Collection Method Collection Time Receive d Time (Source) Location / / Volume Laterality Blood 02/19/2022 8:06 AM 2 8:09 EDT AM EDT Resulting Agency Comment Spec In Lab Zulma Plunkett MD CHEMISTRY ORDERABLES Performing Organization Address City/[facility]/ZIP Code Phon e Number [address] POCT Glucose (01/30/2022 1:41 PM EDT)Only the most recent of32 resultswithin the time period is included. P athologist Signature POC Glucose 148 65 - 199 [facility] mg/dL [facility] LABORATORY Comment: Supplemental ranges: <140 mg/dL before meals <180 mg/dL all other times of the day Specimen Anatomical Collection Method Collection Time Receive d Time (Source) Location / / Volume Laterality Blood 01/30/2022 1:41 PM 2 1:41 EDT PM EDT Vitaliy Nobles MD POINT OF CARE TEST ORDERABLE S Performing Organization Address City/[facility]/ZIP Code [place] [address] EKG 12 Lead (01/30/2022 10:33 AM EDT)Only the most recent of3 resultswithin the time period is included. Component Value Ref Range Test Analysis Performed Pathologis t Method Time At Signature Ventricular rate 64 BPM MUSE SYSTEM Atrial Rate 64 BPM MUSE SYSTEM P-R Interval 162 ms MUSE SYSTEM QRS Duration 94 ms MUSE SYSTEM Q-T Interval 422 ms MUSE SYSTEM QTC Calculated 435 ms MUSE SYSTEM (Bezet) Calculated P [place] 41 degrees MUSE SYSTEM Calculated R [place] -27 degrees MUSE SYSTEM Calculated T [place] 104 degrees MUSE SYSTEM INTERPRETATION Normal sinus rhythm MUSE SYSTEM Anterolateral infarct (cited on or before 09-DEC-2021) Abnormal ECG When compared with ECG of 10-DEC-2021 11:17, No significant change was found Confirmed by Gary Perez ([id number]) on 01/30/2022 5:57:5 2 PM Specimen Anatomical [...] SYSTEM - 01/30/2022 2:09 PM ED T ?[facility] ? Cardiac Cathete rization/Intervention Report ? Patient Name: Don Fatima. ? Procedure Date: 01/30/2022 ? A #: [id number] ? Primary Physician: Vitaliy Nobles ? Case #: [id number] ? File Name: [id number] ? Catheterization Order Number: [id number] ? [facility] ? Final Report [place], [place] ? Patient Name: ? Don E. Stewa rt ? ID#: ?[id number] ? : ?1945 ? Procedure Date: ? January 30, 2022 ? Case #: ? [id number] ? Room: ? 1 ? Case Physician: ? Fabian Lopez ?Start: ?08:54 ?Fellow: ? Eddi Elizabeth Jr. MRafael ?Admission: ??01/30/2022 ? Discharge: ??01/30/2022 ? Procedures: [...] patient was ?designated as ASA Class III. [facility] clinical frailty scale is 5: Mildly [...] was Urgent. The indication for ?the [place] visit is stable kn own CAD. Chest [...] guiding catheter an d a 3.5 [address] [place] [facility] [address] ??20 Mhz ?using Manual pullback. ??Imagin [...] A premounted 2.00 x 26 mm Hardeep Meridian (TUCKER) ? was deployed wi th a [...] Wedelivered along 2.0 x 26 mm HARDEEP Meridian ? TUCKER stent and p ositioned it [...] administered prior to arrival in the [place]. ?Recommended anti-platelet/anti- thrombotic regimen: ?Continue aspirin 81 [...] may require ?modification of this regimen. [facility] Interventional Cardiology for ?questions. ?The 1 year [...] using a 2.0 x 26 mm HARDEEP Meridian TUCKER stent. ?This completes the revasculariz ation [...] Procedure Note Vitaliy Nobles MD - 03/06/2022 [facility] Cardiac Catheterization/Intervention Re port Patient Name: Don Fatima Procedure Date: 01/30/2022 A #: [id number] Primary Physician: Vitaliy Nobles Case #: [id number] File Name: [id number] Catheterization Order Number: [id number] [facility] Final [facility] [place], [place] Patient Name: Don Fatima ID#: [id number] : 1945 Procedure Date: January 30, 2022 Case #: [id number] Room: 1 Case Physician: Vitaliy Nobles M.D. Start: 08:54 Fellow: Barbara Shore Jr. ission: 01/30/2022 Discharge: 01/30/2022 Procedures: * Coronary [...] was Urgent. The indication for the [place]orer [place] visit is stable known CAD. Chest pain [...] 1.5 guiding catheter and a 3.5 Fr [place] [facility] [address] 20 Mhz using Manual pullback. Imaging [...] A premounted 2.00 x 26 mm Hardeep Meridian (TUCKER) was deployed with a maximum inflation [...] along 2. 0 x 26 mm HARDEEP Meridian TUCKER stent and positioned it at the [...] administered prior t o arrival in the [place]. Recommended anti-platelet/anti-thrombot ic regimen: Continue aspirin 81 [...] modification of this regimen. Consult D [facility] Interventional Cardiology for questions. [...] using a 2.0 x 26 mm HARDEEP Meridian TUCKER stent. This completes the revascularization of [...] (12/12/2021 6:00 AM EDT)Only the most recent of8 resultswithin the time period is included. Narrative This result has an attachment that is no t available. Unknown MEDIA MGR SCAN EXT ORDR/RSLT (ABNORMAL) BMP w/fasting Glucose (12/12/2021 4:51 AM EDT)Only the most recent of 4 resultswithin the time period is included. athologist Signature Glucose 152 (H) 65 - 99 [facility] Fasting mg/dL [facility] LABORATORY Comment: ?Fasting* Glucose Interpretive C kanchaneria [...] of Diabetes Mellitus, Position Statement from the [place] [employer]. ??Diabete s Care, Volume 33, Supplement 1, Jul 2009 BUN 52 (H) 10 - 20 mg/dL [facility] LABORATORY Creatinine 1.72 (H) 0.80 - 1.50 mg/dL [facility] [...] mmol/L [facility] LABORATORY Calcium 8.9 8.5 - 10.5 [...] Address City/State/ZIP Code [place] [address] (ABNORMAL) Prothrombin Time (12/12/2021 4:51 AM EDT)Only the most recent of4 resultswithin the time period is included. P athologist Signature PT 14.9 (H) 9.4 - 12.5 [facility] LABORATORY INR 1.3 [facility] LABORATORY [...] [facility]/ZIP Code [place] [address] Magnesium (12/12/2021 4:51 AM EDT)Only the most recent of4 resultswithin the time period is included. P athologist Signature Magnesium 1.02 0.69 - 1.07 [facility] mmol/L [facility] LABORATORY Specimen Anatomical Collection Method Collection Time Receive d Time (Source) Location / / Volume Laterality Blood 12/12/2021 4:51 AM 2 5:06 EDT AM EDT Resulting Agency Comment Spec In Lab Iker Cuevas MD CHEMISTRY ORDERABLES Performing Organization Address City/[facility]/ZIP Code [place] [address] COVID-19 PCR (12/11/2021 10:13 AM EDT) [facility] Method Time Signature SARS-CoV-2 Not Detected Not Detected BARBARA RNA [facility] LABORATORY Comment: This result should be interpreted [...] diagnosis of COVID-19 is performed using the [employer] S-CoV-2 Assay as authorized by the FDA Emergency Use Authorization (EUA). This EUA assay is intended for In-vitro Diagnostic (IVD) use with respiratory sp ecimens such as nasopharyngeal swabs collected from individuals during the ac terrence phase of infection. This assay is performed based on the instructions for use provided by [employer] and additional guidance provided by CDC and FDA. Testing is performed in the Clinical Genomics and Advanced Technolog y Laboratory within the Department of Pathology and Laboratory Medicine at [facility], certified under the Clinical Laboratory Improvement Amendments [...] management guidance information are available at [facility] CDC Coronavirus Disease 2019 (COVID-19) webpage under Information fo r Healthcare Professionals (https://www.cdc.gov/coronavirus/2019-nc ov/hcp/index.html) Additional information about this and ot her EUA tests can be found in provider and patient fact sheets at the following FDA website: https://www.fda.gov/medical-devices/qygaqddfxqu-dbzeacc-9551-yroxo-47-hcnldzhkh- ztp-ncolnxewamvndn-kupgixm-devices/ginio-yqihvxnrmfy-ovmk SARS-Cov-2 RNA Source AIRFRAME TECHNICAL OFFICER Swab [facility] LABORATORY Specimen (Source) Anatomical Collection Method Collection Time Re ceived Time Location / / Volume Laterality Nasopharyngeal Swab 12/11/2021 10:13 05/03/2022 AM EDT 11:16 AM EDT Comment: Symptoms->Surveillance Resulting Agency Comment Spec In Lab Iker Cuevas MD MICROBIOLOGY - GENERAL ORDER [place] Performing Organization Address City/State/ZIP [place] [address] Potassium (12/10/2021 7:46 PM EDT) P athologist Signature Potassium 4.2 3.5 - 5.0 [facility] mmol/L [facility] LABORATORY Comment: Please note: ??Patients [...] Organization Address City/State/ZIP [place] [address] (ABNORMAL) Point of Care Blood Gas Historical (12/10/2021 9:04 AM EDT) Patholo gist Method Time Signature POC pH 7.40 7.35 - [facility] 7.45 [facility] LABORATORY POC PCO2 40 35 - 45 [facility] mmHg [facility] LABORATORY POC PO2 63 (L) 85 - 104 [facility] LABORATORY POC Base Excess 0.0 -3.0 - 3.0 [facility] mmol/L [facility] LABORATORY POC HCO3 24.8 20.0 - [facility] 26.0 [facility] mmol/[facility] LABORATORY POC Sodium 143 135 - 145 [facility] mmol/L [facility] LABORATORY POC Potassium 3.7 3.5 - 5.0 [facility] mmol/L [facility] LABORATORY POC Ionized Ca 1.07 (L) 1.15 - [facility] 1.33 [facility] POC Hematocrit 30.0 (L) 40.0 - [facility] 51.0 % [facility] LABORATORY POC Calc Hgb 10.2 (L) 13.7 - [facility] 17.5 g/dL [facility] LABORATORY Comment: The calculation of hemoglobin f rom hematocrit assumes a normal MCHC. POC Bgas Loc CC LAB [facility] LABORATORY Specimen Anatomical Collection Method Collection Time Receive d Time (Source) Location / / Volume Laterality Blood 12/10/2021 9:04 AM 2 EDT 12:00 PM EDT Ifeanyi Truong MD CHEMISTRY ORDERABLES Performing Organization Address City/[facility]/ZIP [place] [address] Heparin (unfractionated) Level (12/10/2021 4:25 AM EDT)Only the most recent of4 resultswithin the time period is included. P athologist Signature Heparin UFH 0.69 IU/mL [facility] LABORATORY Comment: Heparin (anti-Xa) levels should [...] Organization Address City/State/ZIP Code Phon e Number [place] [phone] (ABNORMAL) Troponin (12/09/2021 6:18 AM EDT) athologist Signature Troponin-T 1.13 (H) 0.00 - [facility] 0.00 ng/mL [facility] LABORATORY Comment: The 99th percentile [...] additional sample may be indicated. Reference: Third [place] Definition of Myocardial Infarction. Journal of the [place] College of Cardiology 2012;60:1581-98 Specimen Anatomical Collection Method Collection Time Receive d Time (Source) Location / / Volume Laterality Blood 12/09/2021 6:18 AM 2 6:33 EDT AM EDT Resulting Agency Comment Spec In Lab Iker Cuevas MD CHEMISTRY ORDERABLES Performing Organization Address City/[facility]/ZIP [facility] Phon e Number [address] TSH (12/09/2021 6:18 AM EDT) P athologist Signature TSH 1.60 0.27 - 4.20 [facility] mcIU/mL [facility] LABORATORY Comment: Reference Interval (mcIU/mL): Females: ??First Trimester: 0.23-3.88 ??Second Trimester: 0.22-3.90 ??Third Trimester: 0.44-4.66 Specimen Anatomical Collection Method Collection Time Receive d Time (Source) Location / / Volume Laterality Blood 12/09/2021 6:18 AM 2 6:33 EDT AM EDT Resulting Agency Comment Spec In Lab Iker Cuevas MD CHEMISTRY ORDERABLES Performing Organization Address City/[facility] [place] [address] (ABNORMAL) Hemoglobin A1c (12/09/2021 6:18 AM EDT) Analysis Performed At Patho logist Time Signature Hemoglobin A1C 7.4 (H) 4.3 - 5.6 [facility] % [facility] LABORATORY Comment: Reference Range: 4.3 - [...] See note mg/dL BARBARA DAVIS [facility] LABORATORY Comment: Estimated Average Glucose not appropriat [...] into estimated average glucose values. ??Diabetes Care 2008:31(8):0686-0192. Specimen Anatomical Collection Method Collection Time Receive d Time (Source) Location / / Volume Laterality Blood Venous Draw / 12/09/2021 6:18 AM 12/10/19 22 Unknown EDT 12:24 PM EDT Resulting Agency Comment Spec In Lab Migdalia BROWN CHEMISTRY ORDERABLES Performing Organization Address City/State/ZIP Code Phon [place] [address] Hepatic Function Panel (12/09/2021 6:18 AM EDT) P athologist Signature Total Protein 7.3 6.1 - 8.0 [facility] DAVIS g/dL [facility] LABORATORY Albumin 4.2 3.2 - 5.2 [facility] DAVIS g/dL [facility] LABORATORY AST 25 0 - 39 [facility] unit/L [facility] LABORATORY ALT 15 0 - 55 [facility] unit/L [facility] LABORATORY Alk Phos 75 40 - 130 [facility] unit/L [facility] LABORATORY Total 1.1 0.2 - 1.3 [facility] Bilirubin mg/dL [facility] LABORATORY Bili, Direct 0.2 0.0 - 0.3 [facility] mg/dL [facility] LAB[facility]ATORY Specimen Anatomical Collection Method Collection Time Receive d Time (Source) Location / / Volume Laterality Blood 12/09/2021 6:18 AM 6:33 EDT AM EDT Resulting Agency Comment Spec In Lab Iker Cuevas MD CHEMISTRY ORDERABLES Performing Organization Address City/State/ZIP [place] [address] Lipid Panel (Reflex Direct LDL) (12/09/2021 6:18 AM EDT) athologist Signature Chol, Total 105 mg/dL [facility] LABORATORY Comment: Lower Risk: <200 mg/dL Average Risk: 200-239 mg/dL Higher Risk: >cd=379 mg/dL Triglycerides 133 mg/dL [facility] LABORATORY Comment: Average Risk/Lower Risk: <150 mg/dL Borderline High Risk: 150-199 mg/dL High Risk: 200-499 mg/dL Very High Risk: >kc=453 mg/dL HDL 42 mg/dL [facility] LABORATORY Comment: Males: ?? Higher Risk: <40 mg/dL Females: ?? Higher Risk: <50 mg/dL LDL Cholesterol 36 mg/dL [facility] LABORATORY Comment: Lowest Risk: <100 mg/dL Lower Risk: 100-129 mg/dL Borderline High Risk: 130-159 mg/dL High Risk: 160-189 mg/dL Very High Risk: >ip=564 mg/dL Chol/HDL Ratio 2.5 ratio [facility] LABORATORY Lipid Interpretation See Note [facility] LABORATORY Comment: Lipid management should be guided by a p atient? s ASCVD risk, goals and preferences. ACC/AHA Guidelines recommend high intens ity statin if clinical ASCVD or LDL greater than or equal to 190 mg/dL. http://eWings.com.com/WYA-GQI-Rrtkluypo Adults aged 40-75 with LDL 70-189 mg/dL should have their 10 year ASCVD risk estimated with the ACC/AHA ASCVD risk es timator http://tools.acc.org/OYIQH-Mziz-Zpfztlyh r/ Statin should be discussed if risk [...] Organization Address City/State/ZIP Code Phon e Number [place] [phone] XR Chest One View [...] have questions please contact the health career advisor that requested your imaging first. ? Electronically signed by: Yoselin White, [facility] ([phone]), at 12/09/2021 5:35 AM Narrative 12/09/2021 5:35 [...] have questions please contact the health career advisor that requested your imaging first. Electronically signed by: Yoselin White, [facility] ([phone]), at 12/09/2021 5:35 AM Amber Sanches MD IMG DX ORDERABLES (ABNORMAL) BLOOD GAS 2 ARTERIAL (12/09/2021 5:14 AM EDT) Analysis Performed At [facility] logis Time Signature pH Art 7.43 7.35 - [facility] 7.45 [facility] LABORATORY pCO2 Art 36 35 - 45 [facility] LABORATORY pO2 Art 67 (L) 85 - 104 [facility] LABORATORY HCO3 Art 23.4 20.0 - [facility] 26.0 [facility] mmol/L [facility] LABORATORY BE Art -0.9 -3.0 - 3.0 [facility] mmol/L [facility] LABORATORY Hgb Blood Gas 13.2 (L) 13.7 - [facility] 16.5 g/dL [facility] LABORATORY O2HB Art 91.3 (L) 94.0 - [facility] 97.0 % [facility] LABORATORY COHB Art 0.4 % [facility] [...] [facility] LAB[facility]ORY Gluc Whole Bld 223 (H) 65 - 199 mg/dL [facility] Comment: Diabetes: >=200 mg/dL plus symp toms. Lactate WB 2.7 (H) 0.5 - 2.2 mmol/L [facility] FIO2 Art 35 % [facility] Flow Art 8.0 LPM [facility] PF Ratio Art 191 [facility] Specimen Anatomical Collection Method Collection Time Receive d Time (Source) Location / / Volume Laterality Blood 12/09/2021 5:14 AM 2 5:14 EDT AM EDT Iker Cuevas MD CHEMISTRY ORDERABLES Performing Organization Address City/State/ZIP [place] [address] from Last 3 Months Insurance Payer Benefit Plan / Subscriber ID Effective Phone Address T ype Group Dates MEDICARE MEDICARE PART [id number] 2011-Prese [phone] [place] [address] [place] [id number] 2018-Prese [phone] [address] [place] [address] [place] [address] Advance Directives Documents on File Type Date Recorded 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 [facility], [place] [address]
--- OUTSIDE RECORDS SUMMARY | 2022-03-11 11:23 | XMS_ITS | Encounter Summary ---
:1945 [place] [address] Care Team Providers Name Role Phone Lovely Vicente MD Primary Care Provider Reason for Visit Reason Onset Date Comments Follow-up 03/06/2022 Dave Bueno Encounter Details Date Type Department Care Team Description 03/06/2022 Telephone Cardiology at [facility] Martha Comer, Follow-up ([facility] VAMSI Start) [place] [address] Social History Tobacco Use Types Packs/Day [...] pt had gotten his labs done at [facility] yesterday. Results received, scanned and entered [...] Nobles MD [facility] [address] TADE[address] [place], [place] [address] (Wo rk) 05/28/2022 Appointment Cardiology Zulma Dolan MD [facility] [place], [place] [address] (Wo rk) 05/28/2022 Laboratory Appointment Lab 05/28/2022 Office Visit Cardiology Zulma Dolan MD [facility] [place] [address] Liz Poole PA [facility] [place] [address] 06/10/2022 Office Visit Dermatology Laura Scherer MD [facility] DR TE[address]-DERMAT [place], [place] [address] (Wo rk) documented as of this encounter Procedures Procedure Name Priority Date/Time Associated Diagnosis Comme nts BASIC METABOLIC Routine 03/05/2022 7:04 AM Result s for this PANEL (NON-FASTING) EDT procedur e are in the results section. documented in this encounter Results (ABNORMAL) Basic Metabolic Panel (non-fasting) (03/05/2022 7:04 AM EDT) P athologist Signature Glucose Lvl 132 EXTERNAL [...] on filedocumented in this encounter Care Teams Hearing Aid Mechanic Relationship Specialty Start Date End Date Lovely Vicente MD PCP - General 04/16/[address] [place] [address] documented as of this encounter
--- OUTSIDE RECORDS SUMMARY | 2022-03-11 11:23 | XMS_ITS | Encounter Summary ---
:1945 [place] [address] Care Team Providers Name Role Phone Lovely Vicente MD Primary Care Provider Reason for Visit Reason Onset Date Comments Follow-up 02/26/2022 Entresto start Encounter Details Date Type Department Care Team Description 02/26/2022 Telephone Cardiology at [facility] Martha Comer, Follow-up ([facility] RN start) [place] [address] Social History Tobacco Use Types Packs/Day [...] on 03/05/22 Getting labs done at : [facility] Order e-faxed by STEPHANIE Poole on 02/24/22. /pt to call on 03/05/22 letting us know to get the BMP results from [facility]. Nursing to get results and contact pt to see how he is tolerating the Entresto. They are to call sooner with any questions/concerns. documented in this encounter Plan of Treatment Upcoming Encounters Date Type Specialty Care Team Description 03/26/2022 Office Visit Cardiology Vitaliy Nobles MD [facility] [address] TADE[address] [place], [place] [address] (Wo rk) 05/28/2022 Appointment Cardiology Zulma Dolan MD [facility] [place], [place] [address] (Wo rk) 05/28/2022 Laboratory Appointment Lab 05/28/2022 Office Visit Cardiology Zulma Dolan MD [facility] [place] [address] Liz Poole PA [facility] [place] [address] 06/10/2022 Office Visit Dermatology Laura Scherer MD [facility] DR TE[address] GR[address]DERMAT [place], [place] [address] (Wo rk) documented as of this encounter Visit Diagnoses Not on filedocumented in this encounter Care Teams Claims Processor Relationship Specialty Start Date End Date Lovely Vicente MD PCP - General 04/16/[address] [place] [address] documented as of this encounter
--- OUTSIDE RECORDS SUMMARY | 2022-03-11 11:23 | XMS_ITS | Encounter Summary ---
:1945 Author Organization [place] [address] Care Team Providers Name Role Phone Lovely Vicente MD Primary Care Provider Encounter Details Date Type Department Care Team Description 02/24/2022 Notes Only Care [place] [address] Social History Tobacco Use Types Packs/Day [...] return to the Medication Assistance Program. The [facility] office will follow up with the patient in 5 business days to see if the patient has received the application and if they have any questions. documented in this encounter Plan of Treatment Upcoming Encounters Date Type Specialty Care Team Description 03/26/2022 Office Visit Cardiology Vitaliy Nobles MD [facility] DR TADEO [place], [place] [address] (Wo rk) 05/28/2022 Appointment Cardiology Zulma Dolan MD [facility] [place], [place] [address] (Wo rk) 05/28/2022 Laboratory Appointment Lab 05/28/2022 Office Visit Cardiology Zulma Dolan MD [facility] [place] [address] Liz Poole PA [facility] [place] [address] 06/10/2022 Office Visit Dermatology Laura Scherer MD [facility] DR TEJA GR-DERMAT [place], [place] [address] (Wo rk) documented as of this encounter Visit Diagnoses Not on filedocumented in this encounter Care Teams Antenna Rigger Relationship Specialty Start Date End Date Lovely Vicente MD PCP - General 04/16/15 [facility] [address] [place] [address] documented as of this encounter
--- OUTSIDE RECORDS SUMMARY | 2022-03-11 11:23 | XMS_ITS | Encounter Summary ---
:1945 Author Organization [facility] [place] [address] Care Team Providers Name Role Phone Lovely Vicente MD Primary Care Provider Encounter Details Date Type Department Care Team Description 02/24/2022 Orders Only Cardiology at [facility] Liz Pooel, Chronic systolic heart [facility] [place] [address] Cardiology Dept [place], [place] [address] Social History Tobacco Use Types [...] [facility] ER DR CARLYLE [place], [place] [address] (Wo rk) 05/28/2022 Appointment Cardiology Zulma Dolan MD [facility] er Dr [place], [place] [address] (Wo rk) 05/28/2022 Laboratory Appointment Lab 05/28/2022 Office Visit Cardiology Zulma Dolan MD [place] [address] Liz Poole PA [facility] [place] [address] 06/10/2022 Office Visit Dermatology Laura Scherer MD [facility] ER DR LEZ[address] RD-DERMAT [place], [place] [address] (Wo rk) documented as of this encounter Visit Diagnoses Diagnosis Chronic systolic heart failure documented in this encounter Care Teams Commercial Collections Specialist Relationship Specialty Start Date End Date Lovely Vicente MD PCP - General 04/16/[address] [place] [address] documented as of this encounter
--- OUTSIDE RECORDS SUMMARY | 2022-03-11 11:23 | XMS_ITS | Encounter Summary ---
:1945 Author Organization [place] [address] Care Team Providers Name Role Phone Lovely Vicente MD Primary Care Provider Reason for Visit Reason Onset Date Comments Medication Refill 03/11/2022 Encounter Details Date Type Department Care Team Description 03/06/2022 Refill Cardiology at [facility] Liz Poole PA Medication Refill [facility] naima [facility] [place] [address] Cardiology Dept [phone] [place], [place] [address] (Wo rk) Social History Tobacco [...] Nobles MD [facility] [address] CARLYLE [place] [address] (Wo rk) 05/28/2022 Appointment Cardiology Zulma Dolan MD [facility] Dr [place], [place] [address] (Wo rk) 05/28/2022 Laboratory Appointment Lab 05/28/2022 Office Visit Cardiology Zulma Dolan MD [facility] [place] [address] Liz Poole PA [facility] [place] [address] 06/10/2022 Office Visit Dermatology Laura Scherer MD [facility] DR TEJA GR-DERMAT [place], [place] [address] (Wo rk) documented as of this encounter Visit Diagnoses Not on filedocumented in this encounter Care Teams Escalator Operator Relationship Specialty Start Date End Date Lovely Vicente MD PCP - General 04/16/15 [facility] [address] [place] [address] documented as of this encounter
--- OUTSIDE RECORDS SUMMARY | 2022-03-11 11:23 | XMS_ITS | Encounter Summary ---
:1945 Author Organization [facility] [place] [address] Care Team Providers Name Role Phone Lovely Vicente MD Primary Care Provider Reason for Visit Reason Onset Date Comments Follow-up 02/23/2022 Medication adjustmen t and new med Encounter Details Date Type Department Care Team Description 02/23/2022 Telephone Cardiology at [facility] Martha Comer, Follow-up ([facility] RN adjustbrandon t and new med) [place] [address] Social History Tobacco Use Types Packs/Day [...] the order for BMP and sent to [facility]. will call [facility] to make an appointment for next Wednesday03/04/22. [...] tablet) daily. She will correct his pill automatic data processing planner to the new dose. Will need to check with STEPHANIE Poole about repeat BMP to recheck K+ level. If yes he will get the test done at [facility]. They are aware that he will need to make an appt at [facility] to get the test done. Entresto: states [...] if he qualifies for assistance from the [facility]. She is thankful for the assistance, as he is taking insulin that is very expensive too. Instructed to call this continuity writer, if he does qualify for assistance from [employer] and that he has gotten the medication so we can review the details of starting this medication. Telephone Encounter - Marhta Comer RN - 02/23/2022 6:19 PM EDT [...] MD [facility] DR TADEO [place], [place] [address] (Wo rk) 05/28/2022 Appointment Cardiology Zulma Dolan MD [facility] [place], [place] [address] (Wo rk) 05/28/2022 Laboratory Appointment Lab 05/28/2022 Office Visit Cardiology Zulma Dolan MD [facility] [place] [address] Liz Poole PA [facility] [place] [address] 06/10/2022 Office Visit Dermatology Laura Scherer MD [facility] DR LEZAMA RD-DERMAT [place], [place] [address] (Wo rk) documented as of this encounter Visit Diagnoses Not on filedocumented in this encounter Care Teams Passenger Interline Clerk Relationship Specialty Start Date End Date Lovely Vicente MD PCP - General 04/16/[address] [place] [address] documented as of this encounter
--- OUTSIDE RECORDS SUMMARY | 2022-03-11 11:24 | XMS_ITS | Encounter Summary ---
:1945 Author Organization [facility] [place] [address] Care Team Providers Name Role Phone Lovely Vicente MD Primary Care Provider Reason for Visit Reason Onset Date Comments Advice Only 01/28/2022 Encounter Details Date Type Department Care Team Description 01/28/2022 Telephone Cardiology at [facility] Chitra Angela, substation design [place] [address] Social History Tobacco Use Types Packs/Day [...] assists patient with medications. Number for laborer road scheduling given and she will call them to verify this information Meds reviewed. As per our form from [employer] Eliquis hold for 48 hours prior. Pt [...] MD [facility] DR TADEO [place], [place] [address] (Wo rk) 05/28/2022 Appointment Cardiology Zulma Dolan MD [facility] [place], [place] [address] (Wo rk) 05/28/2022 Laboratory Appointment Lab 05/28/2022 Office Visit Cardiology Zulma Dolan MD [facility] [place] [address] Liz Poole PA [facility] [place] [address] 06/10/2022 Office Visit Dermatology Laura Scherer MD [facility] DR [address]-DERMAT [place], [place] [address] (Wo rk) documented as of this encounter Visit Diagnoses Not on filedocumented in this encounter Care Teams Db2 Developer Relationship Specialty Start Date End Date Lovely Vicente MD PCP - General 04/16/[address] [place] [address] documented as of this encounter
--- OUTSIDE RECORDS SUMMARY | 2022-03-11 11:24 | XMS_ITS | Encounter Summary ---
:1945 [place] [address] Care Team Providers Name Role Phone Lovely Vicente MD Primary Care Provider Encounter Details Date Type Department Care Team Description 01/28/2022 Orders Only River Tester Zulma Finch ASCVD (art eriosclerotic [facility] cardiovascular disease) [facility] [place] [address] [place], [place] [phone] (Work) [phone] Social History Tobacco Use Types Packs/Day Years [...] [facility] [address] CAR[place]LE [place] [address] (Wo rk) 05/28/2022 Appointment Cardiology Zulma Dolan MD [facility] Dr [place] [address] (Wo rk) 05/28/2022 Laboratory Appointment Lab 05/28/2022 Office Visit Cardiology Zulma Dolan MD [facility] [place] [address] Liz Poole PA [facility] [place] [address] 06/10/2022 Office Visit Dermatology Laura Scherer MD [facility] ER DR [address]-DERMAT [place], [place] [address] (Wo rk) documented as of this encounter Results (ABNORMAL) Basic Metabolic Panel (non-fasting) (01/30/2022 7:19 AM EDT) P athologist Signature Glucose Lvl 237 (H) 65 - 199 [facility] mg/dL [facility] Comment: Diabetes: >=200 mg/dL plus symp toms BUN 34 (H) 10 - 20 mg/dL [facility] Creatinine 1.45 0.80 - 1.50 mg/dL [facility] [...] LABORATORY Calcium 9.5 8.5 - 10.5 mg/dL [facility] Estimated GFR 50 (L) >=60 [...] Organization Address City/State/[place] [address] documented in this encounter Visit Diagnoses Diagnosis ASCVD (arteriosclerotic cardiovascular d isease) Unspecified cardiovascular disease documented in this encounter Care Teams Clay Grinder Relationship Specialty Start Date End Date Lovely Vicente MD PCP - General 04/16/[address] [place] [address] documented as of this encounter
--- OUTSIDE RECORDS SUMMARY | 2022-03-11 11:24 | XMS_ITS | Encounter Summary ---
:1945 Author Organization [facility] [place] [address] Care Team Providers Name Role Phone Lovely Vicente MD Primary Care Provider Encounter Details Date Type Department Care Team Description 12/15/2021 Telephone Card[facility] [place] [facility] Barbara Mera, [place] [address] Social History Tobacco Use Types Packs/Day [...] [facility] [address] TADEO [place], [place] [address] (Wo rk) 05/28/2022 Appointment Cardiology Zulma Dolan MD [facility] [place], [place] 0[address] (Wo rk) 05/28/2022 Laboratory Appointment Lab 05/28/2022 Office Visit Cardiology Zulma Dolan MD [facility] [place] [address] Liz Poole PA [facility] [place] [address] 06/10/2022 Office Visit Dermatology Laura Scherer MD [facility] DR [address]-DERMAT [place], [place] [address] (Wo rk) documented as of this encounter Visit Diagnoses Not on filedocumented in this encounter Care Teams Agriculture Teacher Relationship Specialty Start Date End Date Lovely Vicente MD PCP - General 04/16/[address] [place] [address] documented as of this encounter
--- OUTSIDE RECORDS SUMMARY | 2022-03-11 11:24 | XMS_ITS | Encounter Summary ---
:1945 Author Organization [facility] [place] [address] Care Team Providers Name Role Phone Lovely Vicente MD Primary Care Provider Encounter Details Date Type Department Care Team Description 12/12/2021 Telephone Cardiology at [facility] [place] [address] Social History Tobacco Use Types Packs/Day [...] - 12/12/2021 11:36 AM EDT RTC to [facility] regarding pharmacists questions as to whether the [...] [facility] ER DR TADEO [place], [place] [address] (Wo rk) 05/28/2022 Appointment Cardiology Zulma Dolan MD [facility] [place], [place] [address] (Wo rk) 05/28/2022 Laboratory Appointment Lab 05/28/2022 Office Visit Cardiology Zulma Dolan MD [facility] [place] [address] Liz Poole PA [facility] [place] [address] 06/10/2022 Office Visit Dermatology Laura Scherer MD [facility] DR [address]-DERMAT [place], [place] [address] (Wo rk) documented as of this encounter Visit Diagnoses Not on filedocumented in this encounter Care Teams Fruit Stuffer Relationship Specialty Start Date End Date Lovely Vicente MD PCP - General 04/16/15 [facility] [address] [place] [address] documented as of this encounter
--- OUTSIDE RECORDS SUMMARY | 2022-03-11 11:24 | XMS_ITS | Encounter Summary ---
:1945 [place] [address] Care Team Providers Name Role Phone Lovely Vicente MD Primary Care Provider Encounter Details Date Type Department Care Team Description 12/25/2021 Office Visit Cardiology at [facility] Liz Poole, Chronic systolic heart [facility] [place] [address] Cardiology Dept [phone] [place], [place] [address] Social History Tobacco Use Types [...] Summary - Admitted to [facility] on 12/08/21, transferred from [facility], respiratory distress with [...] mg PO daily in place of Lasix. [place] is new for him and he will [...] Antiplatelet (DAPT) Recommendations above ? TTE from [facility] 12/08/21 ?? 07/28/2019 Echocardiogram: SUMMARY: 1. [...] regurgitation present. 07/07/2019 - 07/21/2019 [employer] Physic[employer] The patient had a minimum heart rate [...] hyperkalemia 4.9 today 6. Post-op atrial fibrillation [id number] (CHF, HTN, DM, vascular disease, thromboembolism) Eliquis 7. PAD 08/06/2017: Right 1st, 2nd, 3rd toe amputation 08/11/2017: Left??femoral arterial access, RLE??angiogram, Balloon angioplasty of R PT 10/25/2017: right popliteal-pedal bypass at [facility] 8. Hypothyrodism S/p thyroidectomy for goiter Levothyroxine ?? Plan: 1 month follow up with labs Liz Poole PA-C 12/25/2021 documented in this encounter Plan of Treatment Upcoming Encounters Date Type Specialty Care Team Description 03/26/2022 Office Visit Cardiology Vitaliy Nobles MD [facility] CARDIOLOGY [place], [place] [address] (Wo rk) 05/28/2022 Appointment Cardiology Zulma Dolan MD [facility] [place], [place] 0375 (Wo rk) 05/28/2022 Laboratory Appointment Lab 05/28/2022 Office Visit Cardiology Zulma Dolan MD [facility] [place] [address] Liz Poole PA [facility] [place] [address] 06/10/2022 Office Visit Dermatology Laura Scherer MD [facility] DR TE[address] GR-DERMAT [place], [place] 0[address] (Wo rk) documented as of this encounter Results (ABNORMAL) pro-Brain Natriuretic Peptide (12/25/2021 7:46 AM EDT) athologist Signature ProBNP 1,380 (H) <=124 [facility] Specimen Anatomical Collection Method Collection Time Receive d Time (Source) Location / / Volume Laterality Blood 12/25/2021 7:46 AM 8:01 EDT AM EDT Resulting Agency Comment Spec In Lab Zulma Plunkett MD CHEMISTRY ORDERABLES Performing Organization Address City/State/[place] [address] (ABNORMAL) Basic Metabolic Panel (non-fasting) (12/25/2021 7:46 AM EDT) athologist Signature Glucose Lvl 272 (H) 65 - 199 [facility] mg/dL [facility] Comment: Diabetes: >=200 mg/dL plus symp toms BUN 62 (H) 10 - 20 mg/dL [facility] Creatinine 1.81 (H) 0.80 - 1.50 mg/dL [facility] Sodium 134 (L) 135 - 145 mmol/L [facility] Potassium 4.9 3.5 - 5.0 mmol/L [facility] Comment: Please note: ??Patients with WBC >100,00 0 may have falsely elevated Potassium levels. ??For accurate Potassium quantif ication in these patients send serum separator tube (gold top) for subsequent determinations. ??Contact the Clinical Chemistry Laboratory if there are any qu estions. Chloride 95 (L) 98 - 107 mmol/L [facility] CO2 28 22 - 31 mmol/L [facility] Anion Gap 11 5 - 15 mmol/L [facility] Calcium 9.4 8.5 - 10.5 mg/dL [facility] Estimated GFR 36 (L) >=60 mL/min/1.73 m?? [facility] [...] Organization Address City/State/[place] [address] documented in this encounter Visit Diagnoses Diagnosis Chronic systolic heart failure documented in this encounter Care Teams Resident Manager Relationship Specialty Start Date End Date Lovely Vicente MD PCP - General 04/16/[address] [place] [address] documented as of this encounter
--- OUTSIDE RECORDS SUMMARY | 2022-03-11 11:24 | XMS_ITS | Encounter Summary ---
:1945 Author Organization [facility] [place] [address] Care Team Providers Name Role Phone Lovely Vicente MD Primary Care Provider Encounter Details Date Type Department Care Team Description 12/24/2021 Telephone Public Health at [facility] [address] Social History Tobacco Use Types Packs/Day [...] [facility] ER DR TADEO [place], [place] [address] (Wo rk) 05/28/2022 Appointment Cardiology Zulma Dolan MD [facility] [place], [place] [address] (Wo rk) 05/28/2022 Laboratory Appointment Lab 05/28/2022 Office Visit Cardiology Zulma Dolan MD [facility] [place] [address] Liz Poole PA [facility] [place] [address] 06/10/2022 Office Visit Dermatology Laura Scherer MD [facility] DR [address]-DERMAT [place], [place] [address] (Wo rk) documented as of this encounter Visit Diagnoses Not on filedocumented in this encounter Care Teams Computer Clerk Relationship Specialty Start Date End Date Lovely Vicente MD PCP - General 04/16/[address] [place] [address] documented as of this encounter
--- OUTSIDE RECORDS SUMMARY | 2022-03-11 11:24 | XMS_ITS | Encounter Summary ---
:1945 [place] [address] Care Team Providers Name Role Phone Lovely Vicente MD Primary Care Provider Encounter Details Date Type Department Care Team Description 12/30/2021 Notes Only Cardiac Rehab [facility] Linnea Deluca, [facility] [place] [address] Social History Tobacco Use Types Packs/Day [...] Failure team. DX: HFrEF. Referral placed to [facility] documented in this encounter Plan of Treatment Upcoming Encounters Date Type Specialty Care Team Description 03/26/2022 Office Visit Cardiology Vitaliy Nobles MD [facility] ER [address] [place], [place] [address] (Wo rk) 05/28/2022 Appointment Cardiology Zulma Dolan MD [facility] [place], [place] [address] (Wo rk) 05/28/2022 Laboratory Appointment Lab 05/28/2022 Office Visit Cardiology Zulma Dolan MD [facility] [place] [address] Liz Poole PA [facility] [place] [address] 06/10/2022 Office Visit Dermatology Laura Scherer MD [facility] [address] [place], [place] [address] (Wo rk) documented as of this encounter Visit Diagnoses Not on filedocumented in this encounter Care Teams Licensed Chemical Spray Technician Relationship Specialty Start Date End Date Lovely Vicente MD PCP - General 04/16/[address] [place] [address] documented as of this encounter
--- OUTSIDE RECORDS SUMMARY | 2022-03-11 11:24 | XMS_ITS | Encounter Summary ---
:1945 Author Organization [facility] Address [facility] [place] [address] Care Team Providers Name Role Phone Lovely Vicente MD Primary Care Provider Reason for Visit Auth/Cert Specialty Diagnoses / Procedures Referred By Contact Refer red To Contact Diagnoses ASCVD (arteriosclerotic cardiovascular disease) [I25.10] Vitaliy Nobles MD [facility] Procedures PRO PERC TRLUML CORONARY STENT W/ANGIO ONE ART/BRANCH CARDIAC CATHETERIZATION STENT PLACEMENT-SINGLE MAJOR CORONARY ARTERY OR BRANCH [facility] [place] [address] Referral ID Status Reason Start Date Expiration Date Visits Requ ested Visits Authorized [id number] 1 1 Encounter Details Date Type Department Care Team Description 01/30/2022 Hospital Encounter Short Stay Unit at Vitaliy Nobles, CVD (arteriosclerotic cardiovascular disease); Barbara Blue MD 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 We have made a referral to cardiac rehab. Please see the attached instructions regarding care to your right wrist access site. AttachmentsThe following attachments cannot be sent through Care Everywhere. Coronary Angiogram: Post-op (Hebrew)documented in this encounter Medications at Time of [...] Murray RN - 01/30/2022 4:54 PM EDT [facility] Short Stay Unit Discharge Note All [...] recent PCI presenting for staged PCI to [facility]. The pt states he [...] recent PCI presenting for staged PCI to [facility]. The indications, expected benefits, [...] SSU team Don has history of prior [place] and CABG. I had referred him to cardiac rehab at [facility] last month per HF team. He was waiting until this intervention before starting the program. Reviewed managing angina /use of sl nitroglycerin. Given parameters for home exercise. 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 We discussed short walks several times per day. Will send [facility] his discharge summary from this admission. The patient should be contacted by the Program within 1- 2 weeks from discharge. Brief Op Note - Vitaliy Nobles MD - 01/30/2022 10:19 AM EDT Images from the original note were not included. [facility] [place] [address] CORONARY ANGIOGRAM AND PERCUTANEOUS CORONARY INTERVENTION REPORT Patient: Don Fatima : 1945 MR number: [id number] Date of Service: 01/30/2022 Machine Heel Sprayer: Vitaliy Nobles MD Fellow: KEYON Elizabeth INDICATION: [...] a long 2.0 x 26 mm HARDEEP Norman TUCKER stent and positioned it at the [...] using a 2.0 x 26 mm HARDEEP Norman TUCKER stent. This completes the revascularization ofall [...] Nobles MD [facility] [address] [place] [address] (Wo rk) 05/28/2022 Appointment Cardiology Zulma Dolan MD [facility] [place] 0375 (Wo rk) 05/28/2022 Laboratory Appointment Lab 05/28/2022 Office Visit Cardiology TrudiZulma Knowles MD [facility] [place] [address] Liz Poole PA [facility] [place] [address] 06/10/2022 Office Visit Dermatology Laura Scherer MD [facility] ER [address] [place], [place] [address] (Wo rk) Scheduled Orders [...] EDT) athologist Signature Neutrophils % 71.8 % [facility] LABORATORY Neutr Abs (ANC) 3.96 1.70 - [facility] 6.10 [facility] x10(3)/[facility] LABORATORY Lymphocytes % 16.3 % [facility] Lymphocytes Abs 0.9 0.9 - 3.2 [facility] x10(3)/[facility] LABORATORY Monocytes % 10.0 % [facility] Monocyte Abs 0.6 0.3 - 0.9 [facility] x10(3)/[facility] LABORATORY Eosinophils % 0.5 % [facility] Eosinophils Abs 0.0 0.0 - 0.4 [facility] x10(3)/[facility] LABORATORY Basophils % 0.5 % [facility] Basophils Abs 0.0 0.0 - 0.1 [facility] x10(3)/[facility] LABORATORY Immature Gran % 0.90 [...] Gran Abs 0.05 (H) 0.00 - 0.04 x10(3)/[facility] LABORATORY Specimen Anatomical Collection Method Collection Time Receive d Time (Source) Location / / Volume Laterality Blood 01/30/2022 2:12 PM 2:37 EDT PM EDT Resulting Agency Comment Spec In Lab Eddi Elizabeth Jr., MD HEMATOLOGY ORDERABLES Performing Organization Address City/State/[place] [address] (ABNORMAL) Hemogram (01/30/2022 2:12 PM EDT) Analysis Performed At Patho logist Time Signature WBC 5.5 4.0 - 9.5 [facility] x10(3)/[facility] LABORATORY RBC 4.30 (L) 4.58 - [place] 5.54 [facility] x10(6)/[facility] LABORATORY Hemoglobin 12.7 (L) 13.7 - [facility] 16.5 g/dL [facility] LABORATORY Hematocrit 39.4 (L) 40.5 - [place] 48.5 % [facility] LABORATORY MCV 91.6 82.9 - [facility] 93.1 [facility] LABORATORY MCH 29.5 27.5 - [place] 32.1 pg [facility] LABORATORY MCHC 32.2 32.0 - [place] 35.7 g/dL [facility] LABORATORY Platelets 172 145 - 357 [facility] x10(3)/[facility] LABORATORY RDWSD 54.5 (H) 36.0 - [facility] RYAN 45.0 [facility] LABORATORY RDWCV 16.4 (H) 11.4 - [facility] RYAN 13.8 % [facility] LABORATORY MPV 9.2 7.6 - 12.9 [facility] LABORATORY nRBC % Auto 0.0 % [facility] nRBC Abs Auto 0.000 0.000 - [facility] 0.000 [facility] x10(3)/[facility] LABORATORY Specimen Anatomical Collection Method Collection Time Receive d Time (Source) Location / / Volume Laterality Blood 01/30/2022 2:12 PM 2 2:37 EDT PM EDT Resulting Agency Comment Spec In Lab Eddi Elizabeth Jr., MD HEMATOLOGY ORDERABLES Performing Organization Address City/State/[place] [address] (ABNORMAL) Basic Metabolic Panel (non-fasting) (01/30/2022 2:12 PM EDT) P athologist Signature Glucose Lvl 163 65 - 199 [facility] mg/dL [facility] LABORATORY [...] City/State/[place] [address] POCT Glucose (01/30/2022 1:41 PM EDT) athologist Signature POC Glucose 148 65 - 199 [facility] mg/dL [facility] LABORATORY Comment: Supplemental ranges: <140 mg/dL before meals <180 mg/dL all other times of the day Specimen Anatomical Collection Method Collection Time Receive d Time (Source) Location / / Volume Laterality Blood 01/30/2022 1:41 PM 1:41 EDT PM EDT Vitaliy Sandra Nobles MD POINT OF CARE TEST ORDERABLE S Performing Organization Address City/State/ZIP Code Phon e Number [address] POCT Glucose (01/30/2022 10:48 AM EDT) P athologist Signature POC Glucose 193 65 - 199 [facility] mg/dL [facility] LABORATORY Comment: Supplemental ranges: <140 mg/dL before meals <180 mg/dL all other times of the day Specimen Anatomical Collection Method Collection Time Receive d Time (Source) Location / / Volume Laterality Blood 01/30/2022 10:48 01/30/2022 AM EDT 10:48 AM EDT Vitaliy Sandra Nobles MD POINT OF CARE TEST ORDERABLE S Performing Organization Address City/State/[place] [address] EKG 12 Lead (01/30/2022 10:33 AM EDT) Component Value Ref Range Test Analysis Performed Pathologis t Method Time At Signature Ventricular rate 64 BPM MUSE SYSTEM Atrial Rate 64 BPM MUSE SYSTEM P-R Interval 162 ms MUSE SYSTEM QRS Duration 94 ms MUSE SYSTEM Q-T Interval 422 ms MUSE SYSTEM QTC Calculated 435 ms MUSE SYSTEM (Bezet) Calculated P [place] 41 degrees MUSE SYSTEM Calculated R [place] -27 degrees MUSE SYSTEM Calculated T [place] 104 degrees MUSE SYSTEM INTERPRETATION Normal sinus rhythm MUSE SYSTEM Anterolateral infarct (cited on or before 09-DEC-2021) Abnormal ECG When compared with ECG of 10-DEC-2021 11:17, No significant change was found Confirmed by Gary Perez ([id number]) on 01/30/2022 5:57:5 2 PM Specimen Anatomical [...] - 01/30/2022 2:09 PM ED T ?[facility] ? Cardiac Cathete rization/Intervention Report ? Patient Name: Don Fatima Veda. ? Procedure Date: 01/30/2022 ? A #: [id number] ? Primary Physician: Vitaliy Nobles ? Case #: [id number] ? File Name: [id number] ? Catheterization Order Number: [id number] ? [facility]Billing And Accounting Staff [facility] ? Final Report [place], [place] ? Patient Name: ? Don E. Stewa rt ? ID#: ?[id number] ? : ?1945 ? Procedure Date: ? January 30, 2022 ? Case #: ? [id number] ? Room: ? 1 ? Case Physician: ? Vitaliy P Nobles, M. D. ?Start: ?08:54 ?Fellow: ? Eddi Elizabeth Jr., [...] patient was ?designated as ASA Class III. [facility] clinical frailty scale is 5: Mildly [...] procedure was Urgent. The indication for ?the laundry laborer visit is stable kn own CAD. [...] guiding catheter an d a 3.[address] [facility] [address] ??20 Mhz ?using Manual pullback. ??Imagin [...] A premounted 2.00 x 26 mm Hardeep Norman (TUCKER) ? was deployed wi a maximum [...] Wedelivered along 2.0 x 26 mm HARDEEP Norman ? TUCKER stent and p ositioned it [...] dose administered prior to arrival in the laundry laborer. ?Recommended anti-platelet/anti- thrombotic regimen: ?Continue aspirin [...] ?modification of this regimen. C [facility] Interventional Cardiology for ?questions. ?The 1 year bleeding risk as nusrat culated by the PRECISE DAPT score is High ?risk. ?High Bleeding Risk - Anticoagul ation and DAPT: ?- ??Assess ischemic and bleedin g risks using validated risk predictors ?(e.g. CHADS2-VASC, HAS-BLED, [place] ECISE DAPT, DAPT Score) ?- ??Keep anticoagulant [...] ? Comments: ?SUMMARY AND THERAPEUTIC RECOMME NDATIONS: ?oDn Mccollum Stewartpresented with a NSTEMI, pulmonary edema,areduction [...] using a 2.0 x 26 mm HARDEEP Norman TUCKER stent. ?This completes the revasculariz ation [...] and peripheral intravascular ultrasound. ? Vitaliy P Barbara Nobles ? Electronically Signed by: Yoselin Lopez. ? Report Finalized: 01/30/2022 ??14:02 ? Report Last Ammended: 03/06/2022 ??12:08 ? Procedure Note Vitaliy Nobles MD - 03/06/2022 [facility] Cardiac Catheterization/Intervention Re port Patient Name: Don Fatima Procedure Date: 01/30/2022 A #: [id number] Primary Physician: Vitaliy Nobles Case #: [id number] File Name: [id number] Catheterization Order Number: [id number] [facility] Billing And Accounting Staff Assistant [facility] Final Report [place], [place] Patient Name: Don Fatima ID#: [...] was designated as ASA Class III. The CS c linical frailty scale is 5: Mildly [...] e was Urgent. The indication for the laundry laborer visit is stable known CAD. Chest [...] 1.5 guiding catheter and a 3.[address] [facility] 20 Mhz using Manual pullback. Imaging [...] A premounted 2.00 x 26 mm Hardeep Norman (TUCKER) was deployed with a maximum inflation [...] along 2. 0 x 26 mm HARDEEP Norman TUCKER stent and positioned it at the [...] administered prior t o arrival in the laundry laborer. Recommended anti-platelet/anti-thrombot ic regimen: Continue aspirin [...] modification of this regimen. Consult D [facility] Interventional Cardiology for questions. The [...] using a 2.0 x 26 mm HARDEEP Norman TUCKER stent. This completes the revascularization of [...] POC Glucose 212 (H) 65 - 199 [facility] mg/dL [facility] LABORATORY Comment: Supplemental ranges: <140 mg/dL before meals <180 mg/dL all other times of the day Specimen Anatomical Collection Method Collection Time Receive d Time (Source) Location / / Volume Laterality Blood 01/30/2022 9:04 AM 2 9:04 EDT AM EDT Vitaliy Nobles MD POINT OF CARE TEST ORDERABLE S Performing Organization Address City/[facility]/[place] [address] (ABNORMAL) POCT Glucose (01/30/2022 8:10 AM EDT) athologist Signature POC Glucose 224 (H) 65 - 199 [facility] mg/dL [facility] LABORATORY Comment: Supplemental ranges: <140 mg/dL before meals <180 mg/dL all other times of the day Specimen Anatomical Collection Method Collection Time Receive d Time (Source) Location / / Volume Laterality Blood 01/30/2022 8:10 AM 2 8:10 EDT AM EDT Vitaliy Nobles MD POINT OF CARE TEST ORDERABLE S Performing Organization Address City/[facility]/[place] [address] documented in this encounter Visit Diagnoses Diagnosis ASCVD (arteriosclerotic cardiovascular d isease) Unspecified cardiovascular disease Atherosclerosis of [place] coronary arter y of [place] heart with angina pectoris with documented spasm ASHD (arteriosclerotic heart disease) Coronary atherosclerosis of unspecified type of vessel, [place] or graft ASCVD (arteriosclerotic cardiovascular d isease) Unspecified cardiovascular disease documented in this encounter Admitting Diagnoses Diagnosis CAD (coronary artery disease) Coronary atherosclerosis of unspecified type of vessel, [place] or graft documented in this encounter Administered [...] Procedure), Routine niCARdipine (Cardene) (100 mcg/mL) dilution (AUTOMATIC BEADING LATHE OPERATOR) (CANCELED ) 0927 (Given - Provider: [...] (Intra-Procedure) documented in this encounter Care Teams Before And After School Daycare Worker Relationship Specialty Start Date End Date Lovely Vicente MD PCP - General 04/16/[address] [place] [address] documented as of this encounter
--- OUTSIDE RECORDS SUMMARY | 2022-03-11 11:24 | XMS_ITS | Encounter Summary ---
:1945 Author Organization [facility] [place] [address] Care Team Providers Name Role Phone Lovely Vicente MD Primary Care Provider Encounter Details Date Type Department Care Team Description 12/25/2021 Laboratory Appointment Lab 3L [facility] [place] [id number] Social History Tobacco Use Types Packs/Day Years [...] MD [facility] [address] [place], [place] 0[address] (Wo rk) 05/28/2022 Appointment Cardiology Zulma Dolan MD [facility] [address] [place] 0[address] (Wo rk) 05/28/2022 Laboratory Appointment Lab 05/28/2022 Office Visit Cardiology Zulma Dolan MD [facility] [place] [address] Liz Poole PA [facility] [place] [address] 06/10/2022 Office Visit Dermatology Laura Scherer MD [facility] ER DR [address] [place], [place] [address] (Wo rk) documented [...] (ABNORMAL) Differential, Automated (12/25/2021 7:46 AM EDT) [facility] Method Time Signature Neutrophils % 82.6 % [facility] LABORATORY Neutr Abs (ANC) 9.37 (H) 1.70 - [facility] 6.10 [facility] x10(3)/[facility] L LABORATORY Lymphocytes % 7.1 % [facility] LABORATORY Lymphocytes Abs 0.8 (L) 0.9 - 3.2 [facility] x10(3)/[facility] LABORATORY Monocytes % 8.8 % [facility] LABORATORY Monocyte Abs 1.0 (H) 0.3 - 0.9 [facility] x10(3)/[facility] LABORATORY Eosinophils % 0.4 % [facility] LABORATORY Eosinophils Abs 0.0 0.0 - 0.4 [facility] x10(3)/[facility] LABORATORY Basophils % 0.4 % [facility] LABORATORY Basophils Abs 0.0 0.0 - 0.1 [facility] x10(3)/[facility] LABORATORY Immature Gran % 0.70 % [...] Gran Abs 0.08 (H) 0.00 - 0.04 x10(3)/[facility] LABORATORY Specimen Anatomical Collection Method Collection Time Receive d Time (Source) Location / / Volume Laterality Blood 12/25/2021 7:46 AM 8:01 EDT AM EDT Resulting Agency Comment Spec In Lab Liz BROWN HEMATOLOGY ORDERABLES Performing Organization Address City/State/Z[place] [address] (ABNORMAL) Hemogram (12/25/2021 7:46 AM EDT) Analysis Performed At Patho logist Time Signature WBC 11.4 (H) 4.0 - 9.5 [facility] x10(3)/[facility] LABORATORY RBC 4.23 (L) 4.58 - [facility] RYAN 5.54 [facility] x10(6)/[facility] LABORATORY Hemoglobin 12.3 (L) 13.7 - [facility] 16.5 g/dL [facility] LABORATORY Hematocrit 37.7 (L) 40.5 - [facility] RYAN 48.5 % [facility] LABORATORY MCV 89.1 82.9 - [facility] 93.1 fL [facility] LABORATORY MCH 29.1 27.5 - [place] 32.1 pg [facility] LABORATORY MCHC 32.6 32.0 - [facility] 35.7 g/dL [facility] LABORATORY Platelets 215 145 - 357 [facility] x10(3)/[facility] LABORATORY RDWSD 49.8 (H) 36.0 - [facility] 45.0 [facility] LABORATORY RDWCV 15.2 (H) 11.4 - [facility] 13.8 % [facility] LABORATORY MPV 9.2 7.6 - 12.9 [facility] LABORATORY nRBC % Auto 0.0 % [facility] LABORATORY nRBC Abs Auto 0.000 0.000 - [facility] 0.000 [facility] x10(3)/[facility] LABORATORY Specimen Anatomical Collection Method Collection Time Receive d Time (Source) Location / / Volume Laterality Blood 12/25/2021 7:46 AM 8:01 EDT AM EDT Resulting Agency Comment Spec In Lab Liz BROWN HEMATOLOGY ORDERABLES Performing Organization Address City/State/Z[place] [address] (ABNORMAL) Basic Metabolic Panel (non-fasting) (12/25/2021 7:46 AM EDT) athologist Signature Glucose Lvl 272 (H) 65 - 199 [facility] mg/dL [facility] LABORATORY Comment: Diabetes: >=200 mg/dL plus symp toms BUN 62 (H) 10 - 20 mg/dL [facility] LABORATORY Creatinine 1.81 (H) 0.80 [...] mmol/L [facility] LABORATORY Calcium 9.4 8.5 - [...] Organization Address City/State/ZIP [place] [address] (ABNORMAL) pro-Brain Natriuretic Peptide (12/25/2021 7:46 AM EDT) P athologist Signature ProBNP 1,380 (H) <=124 [facility] pg/mL [facility] LABORATORY Specimen Anatomical Collection Method Collection Time Receive d Time (Source) Location / / Volume Laterality Blood 12/25/2021 7:46 AM 2 8:01 EDT AM EDT Resulting Agency Comment Spec In Lab Zulma Plunkett MD CHEMISTRY ORDERABLES Performing Organization Address City/State/ZIP [place] [address] documented in this encounter Visit Diagnoses Diagnosis Chronic systolic heart failure documented in this encounter Care Teams Intervention Manager Relationship Specialty Start Date End Date Lovely Vicente MD PCP - General 04/16/[address] [place] [address] documented as of this encounter
--- OUTSIDE RECORDS SUMMARY | 2022-03-11 11:24 | XMS_ITS | Encounter Summary ---
:1945 Author Organization [facility] [place] [address] Care Team Providers Name Role Phone Lvoely Vicente MD Primary Care Provider Reason for Referral Consultation (Routine) - Closed Specialty Diagnoses / Referred By Contact Referred To Contact Procedures Cardiac Rehabilitation Diagnoses Acute HFrEF (heart failure with reduced ejection fraction) Janneth Padilla, Cardiac Rehab, [address] [place], [place] CARDIOLOGY DEPT. [address] [place] [address] Referral ID Status Reason Start Date Expiration Date Visits V isits Requested Authorized [id number] Closed Consult, 12/12/2021 12/12/2022 36 36 Test & Treat Reason for Visit Auth/Cert Specialty Diagnoses / Procedures Referred By Contact Refer red To Contact Diagnoses NSTEMI Procedures emerg ipi Referral ID Status Reason Start Date Expiration Date Visits Requ ested Visits Authorized [id number] 1 1 Encounter Details Date Type Department Care Team Description 12/08/2021 - Hospital Encounter Intermediate Cardiac Iker Cuevas MD [facility] [place] [address] Non-ST elevation myocardial infarction ( NSTEMI); 12/12/2021 Care Unit Ifeanyi Rene MD [facility] [place] [address] ST elevation myocardial infarction (STEM I), unspecified artery; [facility] Acute HFr EF (heart failure with reduced ejection fraction) [place] [address] Social History Tobacco Use Types Packs/Day Years [...] Don Fatima Patient Age: 76 y.o. Language: Pashto Race: White Ethnicity: Not nor Admit date: [...] Peter PA-C Kelly LaFlamme PA-C Cardiovascular Medicine [phone] Discharge Diagnoses (Hospital Problems) and Secondary Diagnoses [...] 3.75 guiding catheter and a 3.5 Fr [place] 20 Mhz using Manual pullback. Imaging was successful. Image quality was good. The ostial LCX showed moderate diffuse atherosclerotic plaque with scattered three quadrant calcification. Measurements were performed after pre-dilation. Post Intervention: The stent was well expanded and apposed. Intravascular Ultrasound was performed in the distal LM using a 7 Fr EBU 3.75 guiding catheter and a 3.5 Fr [place] 20 Mhz using Manual pullback. Imaging was [...] residual stenosis following this intervention. The final UYLISSA flow was 3. PCI of the distal [...] may require modification of this regimen. Consult [facility] [...] vascular congestion and cardiomegaly. ?? TTE from [facility] 12/08/21 ? Prior Cardiac Studies: TTE [...] prior thyroidectomy in 2012 who presented to [facility] with 1 week progressing breathlessness with [...] 03/2021 with Liz Poole PA-C. ?? At [facility], respiratory distress with hypoxia 86% [...] mg PO daily in place of lasix. [place] is new for him and he will have a BMP checked on 12/[address] Cuevas spoke with the patient's and told her that him drinking too much water and diet drinks did not cause his NE. This is what his thought was the [...] to be ~$24/mo; affordable per patient. Post [facility] he was started on Eliquis. He continued [...] appointments: During 8am-5pm Wednesday through Wednesday call [phone] to speak with a nurse in the cardiology clinic All other times call [phone] and ask to speak to the cardiology physician assistant astronomy instructor. Return to work: One week Driving: No driving for 48 hours after catheterization. Follow up Appointments: PCP Lovely Vicente MD [phone] to see patient at the end of December for annual check up. Patient to see Dr. Lorenzana at 1120 am at December 19 for a post hospital check up. Raisin Washer Dr. De Oliveira to see you in [facility]. Left a message for office to set a date and time. Please call [phone] Nobles to see the patient for a same day cath in 2-3 weeks from now. Office to call with a date and time. For questions please call [phone] Home oxygen therapy: N/A Arrangements for VNA/home care: none Future Appointments and Orders Future Orders Complete By Expires Basic Metabolic Panel (non-fasting) [LAB15 Custom] 12/19/2021 (Approximate) 12/12/2022 Process Instructions: INCLUDES: Calcium, BUN, Creat, GFR, Glucose, Lytes Scheduling Instructions: Comments: Questions: Referral to Cardiac Rehab [FUS081 Custom] As directed Process Instructions: If no [...] appointments: During 8am-5pm Wednesday through Wednesday call [phone] to speak with a nurse in the cardiology clinic All other times call [phone] and ask to speak to the cardiology physician assistant astronomy instructor. Return to work: One week Driving: No driving for 48 hours after catheterization. Follow up Appointments: PCP Lovely Vicente MD [phone] to see patient at the end of December for annual check up. Patient to see Dr. Lorenzana at 1120 am at December 19 for a post hospital check up. Raisin Washer Dr. De Oliveira to see you in [facility]. Left a message for office to set a date and time. Please call [phone] Nobles to see the patient for a same day cath in 2-3 weeks from now. Office to call with a date and time. For questions please call [phone] Home oxygen therapy: N/A Arrangements for VNA/home [...] Progress Note Patient Name: Don Fatima Service: SKI GUIDE / PA Responsible Attending: Ifeanyi Truong MD [...] given Lasix 80mg IV x1 in label remover. Tolerated procedure well. Home today at 11 [...] TROPONINT 1.13* 0.92* 0.89* Pertinent Radiographic/Diagnostic Results: R/[facility] 12/10/21 Hemodynamics: Right Heart Pressures Resting: Syst [...] pulmonary vascular congestion and cardiomegaly. TTE from [facility] 12/08/21 Prior Cardiac Studies: TTE 07/28/2019 [...] with MD Janneth Neville PA 12/12/2021 Pager [phone] Associated attestation - Ifeanyi Truong MD - [...] ratio for each meal) Desirae Jett APRN [facility] Endocrinology Diabetes Management Pager [phone] 20 minutes of this 35 minute visit [...] Progress Note Patient Name: Don Fatima Service: SKI GUIDE / PA Responsible Attending: Iker Cuevas MD [...] + trop. Known CAD with hx of NE and CABG. DM. MARIA VICTORIA.ICM. ??? ASHD [...] given Lasix 80mg IV x1 in label remover. Tolerated procedure well. Review of Systems: Review [...] TROPONINT 1.13* 0.92* 0.89* Pertinent Radiographic/Diagnostic Results: R/[facility] 12/10/21 Hemodynamics: Right Heart Pressures Resting: Syst [...] pulmonary vascular congestion and cardiomegaly. TTE from [facility] 12/08/21 Prior Cardiac Studies: TTE 07/28/2019 [...] Progress Note Patient Name: Don Fatima Service: SKI GUIDE / PA Responsible Attending: Iker Cuevas MD Reason for continued hospitalization: NSTEMI- s/p R/LHC- PCW 27, occluded SVGs s/p PCI to ostial LCX ADHF and hypoxia- IV diuresis Active Problems: Active Hospital Problems Diagnosis ??? Admitted with 2 days of sob, hypoxemia, and + trop. Known CAD with hx of NE and CABG. DM. MARIA VICTORIA.ICM. ??? ASHD [...] given Lasix 80mg IV x1 in label remover. Tolerated procedure well. Review of Systems: Review [...] ??? heparin (porcine) infusion 1,600 Units/hr (12/09/21 1777) PRN Meds:ipratropium-albuteroL, senna-docusate, bisacodyL, sodium chloride 0.9 [...] TROPONINT 1.13* 0.92* 0.89* Pertinent Radiographic/Diagnostic Results: /[facility] 12/10/21 Hemodynamics: Right Heart Pressures Resting: Syst [...] pulmonary vascular congestion and cardiomegaly. TTE from [facility] 12/08/21 Prior Cardiac Studies: TTE 07/28/2019 [...] Discussed with MD Migdalia Peter PA-C Pager #[phone] 12/10/2021 Cardiology Attending Note I have seen [...] Progress Note Patient Name: Don Fatima Service: SKI GUIDE / PA Responsible Attending: Iker Cuevas MD Reason for continued hospitalization: NSTEMI- awaiting R/LHC ADHF and hypoxia- IV diuresis, R/LHC Active Problems: Active Hospital Problems Diagnosis ??? Admitted with 2 days of sob, hypoxemia, and + trop. Known CAD with hx of NE and CABG. DM. MARIA VICTORIA.ICM. ??? ASHD [...] ??? heparin (porcine) infusion 1,600 Units/hr (12/09/21 5679) PRN Meds:ipratropium-albuteroL, sodium chloride 0.9 % (flush), [...] pulmonary vascular congestion and cardiomegaly. TTE from [facility] 12/08/21 Prior Cardiac Studies: TTE 07/28/2019 [...] Discussed with MD Migdalia Peter PA-C Pager #[phone] 12/09/2021 Cardiology Attending Note I have seen and examined the patient. I agree with the findings above. Developed CHF early this am despite getting more iv lasix last evening. Feeling better now. INR > 2. Lungs still wet at base. Echo at [facility] showed EF 35% with mild mod [...] + trop. Known CAD with hx of NE and CABG. DM. MARIA VICTORIA.ICM. ??? ASHD [...] prior thyroidectomy in 2012 who presented to [facility] with 1 week progressing breathlessness with [...] visit 03/2021 with Liz Poole PA-C. At [facility], respiratory distress with hypoxia 86% [...] [facility] OR ??? PRO AMPUTATION FOOT, TRANSMETATARSAL Right 08/09/2017 AMPUTATION, TRANSMETATARSAL (WRVU 12.71) performed by Yonathan Smith MD at [facility] OR ??? PRO CABG, ARTERIAL, SINGLE N/A 07/07/2017 @CABG, USING ARTERIAL GRAFT;SINGLE ARTERIAL GRAFT (WRVU 33.75) performed by Yuan Retana MD at [facility] OR ??? PRO CABG, ARTERY-VEIN, TWO N/A 07/07/2017 @CABG, TWO VENOUS GRAFTS & ARTERIAL GRAFT (WRVU 7.93) performed by Yuan Retana MD at [facility] OR ??? PRO COLONOSCOPY, REMV LESN, SNARE 01/16/2014 COLONOSCOPY, POLYPECTOMY, REMOVAL LESION BY SNARE performed by Nohemi Jaimes MD at [facility] ENDOSCOPY ??? PRO DRESSING CHANGE UNDER ANESTHESIA Right 08/11/2017 (MSURG) DRESSING CHANGE (FOR OTHER THAN IVAN) UNDER ANES. (WRVU 0.86) performed by Lamar Smith MD at [facility] OR ??? PRO ENDOSCOPY W/VIDEO-ASST VEIN HARVEST, CABG Right 07/07/2017 ENDOSCOPIC HARVEST VEIN(S) FOR CABG (WRVU 0.31) performed by Yuan Retana MD at [facility] OR ??? PRO THYROIDECTOMY 03/28/2013 THYROIDECTOMY, TOTAL OR COMPLETE performed by Manny Mcknight MD at [facility] MAIN OR Significant Family History: Family [...] (H) 65 - 199 mg/dL Labs at [facility] 12/08/2021-troponin I 8004 (UN L <60), [...] Monitor for ADRs. Trend troponins. Admission EKG. [facility] 12/09; consented. TTE. Telemetry monitoring, daily weights, [...] code #Diet-carb control; n.p.o. after midnight for [facility] #DVT prophy- heparin infusion #GI prophy- PPI Discussed with MD Morgan Peter PA-C APP2 pager [phone] 12/08/2021 Cardiology Attending Note I have seen [...] is type 1 due to graft or campo coronary stenosis vs acute injury from CHF. 3. PAF: currrently in NSR. Have replaced warfarin with heparin 4. PAD: stable 5. DM: stable 6. CKD: will monitor and minimize contrast. Pt very appreciative of Dr. Yuan Retana's care in 2018. Will let him know patient is here. Iker Cuevas MD [facility] documented in this encounter Miscellaneous [...] Type: *No Product type* / Secondary Insurance: [place] Prescription Coverage: Yes This plan was formulated with input from patient and team. All are in agreement with plan. Consult Note - Octavia Vaughn RN - 12/11/2021 8:01 AM EDT Dno Fatima has been admitted with NSTEMI and [...] cath without complications. Migdalia Parker PA-C Pager #[phone] 12/10/2021 Initial Assessments - Nick Georges RN [...] COVID test: Lab Results Component Value Date [id number] Not Detected 12/08/2021 Past medical History: Past [...] 180 days) Any patient receiving care at [facility] must abide by [place] law. The hierarchy [...] - standard, cane - straight Home Address: [address] [place] [address] [place] [address] Social & Family Supports: All names listed below confirmed with patient as current and correct Extended Emergency Contact Information Primary Emergency Contact: Kisha Fatima Address: [address] [place] [address] [place] [address] [facility] Mobile Relation: Spouse Secondary Emergency Contact: Elba Swenson Address: [address] Mobile Relation: Child Current Care Provided [...] / Secondary Insurance: [employer] Prescription Coverage: Yes Preferred Pharmacy: [facility] [address] - [place], [place] - [address] [place] [id number] [place] Status: Patient is a : unable to assess Primary Care Provider: Lovely Vicente MD [phone] Patient/Caregiver Goals of Treatment: Get out of here Potential Needs for Transition of Care: none Agency Referrals: none patient has used [facility] in the past Transportation: no concerns Transportation Anticipated: family or friend will provide Concerns to be Addressed: patient refuses services, discharge planning Assessment: Patient is admitted to [facility] Service pager [phone] for 76 y.o.??male??with h/o??CAD s/p 3vCABG (THOMPSON-LAD, [...] status on current unit. Nick Georges RN wet end supervisor, Office of Care Management Pager: [phone] Brief Op Note - Vitaliy Nobles MD - 12/10/2021 8:31 AM EDT Images from the original note were not included. [facility] [place] [address] CORONARY ANGIOGRAM AND PERCUTANEOUS CORONARY INTERVENTION REPORT Patient: Don Fatima : 1945 MR number: [id number] Date of Service: 12/10/2021 Milling Planer Operator: Vitaliy Nobles MD Fellow: [place] [...] management and to provide a review of termination clerk diabetes care. Diabetes History: Don Fatima has had diabetes for 10 years. He has been on insulin for the last several years andis managed by his PCP. Lives in [place], [place] with his . 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 Monitoring - continue BG tid ac & hs Diet - low fat/low carb diet Exercise - weight-bearing exercise 30 min/day, as tolerated Thank you for allowing us to provide care for your patient Desirae Johnie QUINONES Endocrinology Pager [phone] 70 minutes of this 80 minute visit [...] + trop. Known CAD with hx of NE and CABG. DM. MARIA VICTORIA.ICM. ??? ASHD [...] to remain on Med/Surg floor, please page [phone] for any further questions or concerns. LANDON [...] for further details. STEPHANIE Rebolledo 12/08/2021 Pager [phone] documented in this encounter Plan of Treatment Upcoming Encounters Date Type Specialty Care Team Description 03/26/2022 Office Visit Cardiology Vitaliy Nobles MD [facility] [address] [place], [place] [address] (Wo rk) 05/28/2022 Appointment Cardiology Zulma Dolan MD [facility] [place], [place] [address] (Wo rk) 05/28/2022 Laboratory Appointment Lab 05/28/2022 Office Visit Cardiology Zulma Dolan MD [facility] [place] [address] Liz Poole PA [facility] [place] [address] 06/10/2022 Office Visit Dermatology Laura Scherer MD [facility] [address] [place], [place] [address] (Wo rk) Scheduled Referrals Name [...] 215 (H) 65 - 199 [facility] mg/dL [facility] Comment: Supplemental ranges: <140 mg/dL before meals <180 mg/dL all other times of the day Specimen Anatomical Collection Method Collection Time Receive d Time (Source) Location / / Volume Laterality Blood 12/12/2021 7:42 AM 7:42 EDT AM EDT Ifeanyi Truong MD POINT OF CARE TEST ORDERABLE S Performing Organization Address City/State/[place] [address] (ABNORMAL) Differential, Automated (12/12/2021 4:51 AM EDT) athologist Signature Neutrophils % 75.4 % [facility] Neutr Abs (ANC) 5.95 1.70 - [facility] 6.10 [facility] x10(3)/[facility] LABORATORY Lymphocytes % 12.2 % [facility] Lymphocytes Abs 1.0 0.9 - 3.2 [facility] x10(3)/[facility] LABORATORY Monocytes % 9.5 % [facility] Monocyte Abs 0.8 0.3 - 0.9 [facility] x10(3)/[facility] LABORATORY Eosinophils % 1.8 % [facility] Eosinophils Abs 0.1 0.0 - 0.4 [facility] x10(3)/[facility] LABORATORY Basophils % 0.5 % [facility] Basophils Abs 0.0 0.0 - 0.1 [facility] x10(3)/[facility] LABORATORY Immature Gran % 0.60 [...] Organization Address City/State/[place] [address] (ABNORMAL) Hemogram (12/12/2021 4:51 AM EDT) Analysis Performed At Patho logist Time Signature WBC 7.9 4.0 - 9.5 [facility] x10(3)/[facility] LABORATORY RBC 4.19 (L) 4.58 - [facility] 5.54 [facility] x10(6)/[facility] LABORATORY Hemoglobin 12.1 (L) 13.7 - [facility] 16.5 g/dL [facility] Hematocrit 36.7 (L) 40.5 - [facility] 48.5 % [facility] MCV 87.6 82.9 - [place] 93.1 [facility] LABORATORY MCH 28.9 27.5 - [place] [facility] 32.1 pg [facility] MCHC 33.0 32.0 - [place] 35.7 g/dL [facility] Platelets 231 145 - 357 [facility] x10(3)/[facility] LABORATORY RDWSD 47.2 (H) 36.0 - [place] 45.0 [facility] LABORATORY RDWCV 14.6 (H) 11.4 - [facility] SU 13.8 % [facility] MPV 9.5 7.6 - 12.9 [facility] LABORATORY nRBC % Auto 0.0 % [facility] nRBC Abs Auto 0.000 0.000 - [place] 0.000 [facility] x10(3)/[facility] LABORATORY Specimen Anatomical Collection Method Collection Time Receive d Time (Source) Location / / Volume Laterality Blood 12/12/2021 4:51 AM 2 5:06 EDT AM EDT Resulting Agency Comment Spec In Lab Bijan Sun MD HEMATOLOGY ORDERABLES Performing Organization Address City/State/[place] [address] (ABNORMAL) Prothrombin Time (12/12/2021 [...] Organization Address City/State/[place] [address] (ABNORMAL) BMP w/fasting Glucose (12/12/2021 4:51 AM EDT) athologist Signature Glucose 152 (H) 65 - 99 [facility] Fasting mg/dL [facility] Comment: ?Fasting* Glucose Interpretive C [...] Organization Address City/State/[place] [address] Magnesium (12/12/2021 4:51 AM EDT) P athologist Signature Magnesium 1.02 0.69 - 1.07 [facility] mmol/L [facility] Specimen Anatomical Collection Method Collection Time Receive d Time (Source) Location / / Volume Laterality Blood 12/12/2021 4:51 AM 2 5:06 EDT AM EDT Resulting Agency Comment Spec In Lab Iker Cuevas MD CHEMISTRY ORDERABLES Performing Organization Address City/State/ZIP Code Phon e Number [address] POCT Glucose (12/12/2021 3:43 AM EDT) P athologist Signature POC Glucose 138 65 - 199 [facility] mg/dL [facility] Comment: Supplemental ranges: <140 mg/dL before meals <180 mg/dL all other times of the day Specimen Anatomical Collection Method Collection Time Receive d Time (Source) Location / / Volume Laterality Blood 12/12/2021 3:43 AM 2 3:43 EDT AM EDT Iker Cuevas MD POINT OF CARE TEST ORDERABLE S Performing Organization Address City/State/[place] [address] POCT Glucose (12/11/2021 11:44 PM EDT) P athologist Signature POC Glucose 124 65 - 199 [place] mg/dL [facility] Comment: Supplemental ranges: <140 mg/dL before meals <180 mg/dL all other times of the day Specimen Anatomical Collection Method Collection Time Receive d Time (Source) Location / / Volume Laterality Blood 12/11/2021 11:44 12/11/2021 PM EDT 11:44 PM EDT Iker Cuevas MD POINT OF CARE TEST ORDERABLE S Performing Organization Address City/State/[place] [address] (ABNORMAL) POCT Glucose (12/11/2021 8:12 PM EDT) athologist Signature POC Glucose 200 (H) 65 - 199 [place] [facility] mg/dL [facility] Comment: Supplemental ranges: <140 mg/dL before meals <180 mg/dL all other times of the day Specimen Anatomical Collection Method Collection Time Receive d Time (Source) Location / / Volume Laterality Blood 12/11/2021 8:12 PM 2 8:12 EDT PM EDT Iker Cuevas MD POINT OF CARE TEST ORDERABLE S Performing Organization Address City/State/[place] [address] (ABNORMAL) POCT Glucose (12/11/2021 6:50 PM EDT) P athologist Signature POC Glucose 245 (H) 65 - 199 [place] mg/dL [facility] Comment: Supplemental ranges: <140 mg/dL before meals <180 mg/dL all other times of the day Specimen Anatomical Collection Method Collection Time Receive d Time (Source) Location / / Volume Laterality Blood 12/11/2021 6:50 PM 2 6:50 EDT PM EDT Iker Cuevas MD POINT OF CARE TEST ORDERABLE S Performing Organization Address City/[facility]/[place] [address] (ABNORMAL) POCT Glucose (12/11/2021 4:00 PM EDT) athologist Signature POC Glucose 383 (H) 65 - 199 [facility] Comment: Supplemental ranges: <140 mg/dL before meals <180 mg/dL all other times of the day Specimen Anatomical Collection Method Collection Time Receive d Time (Source) Location / / Volume Laterality Blood 12/11/2021 4:00 PM 2 4:00 EDT PM EDT Iker Cuevas MD POINT OF CARE TEST ORDERABLE S Performing Organization Address City/[facility]/[place] [address] (ABNORMAL) POCT Glucose (12/11/2021 12:01 PM EDT) P athologist Signature POC Glucose 342 (H) 65 - 199 [facility] mg/dL [facility] Comment: Supplemental ranges: <140 mg/dL before meals <180 mg/dL all other times of the day Specimen Anatomical Collection Method Collection Time Receive d Time (Source) Location / / Volume Laterality Blood 12/11/2021 12:01 12/11/2021 PM EDT 12:01 PM EDT Iker Cuevas MD POINT OF CARE TEST ORDERABLE S Performing Organization Address City/[facility]/[place] [address] COVID-19 PCR (12/11/2021 10:13 AM EDT) [facility] gist Method Time Signature SARS-CoV-2 Not Detected Not Detected [facility] Comment: This result should [...] diagnosis of COVID-19 is performed using the [employer]ONNA S-CoV-2 Assay as authorized by the FDA Emergency Use Authorization (EUA). This EUA assay is intended for In-vitro Diagnostic (IVD) use with respiratory sp ecimens such as nasopharyngeal swabs collected from individuals during the ac [place] phase of infection. This assay is performed based on the instructions for use provided by [employer] and additional guidance provided by CDC [...] required or requested by public health [facility], positive specimens may be sent for additional [...] clinical management guidance information are available at [facility] Coronavirus Disease 2019 (COVID-19) webpage under Information fo r [employer] (https://www.cdc.gov/coronavirus/2019-nc ov/hcp/index.html) Additional information about this and ot her EUA tests can be found in provider and patient fact sheets at the following FDA website: https://www.fda.gov/medical-devices/taltoogzyaa-agzzaci-7197-iksck-33-sedqmhwbo- grh-xmtjsigxezvfyh-gsjnafm-devices/occnm-qvyakrrcqft-vglb SARS-Cov-2 RNA Source SKI GUIDE Swab [facility] Specimen (Source) Anatomical Collection Method Collection Time Re ceived Time Location / / Volume Laterality Nasopharyngeal Swab 12/11/2021 10:13 0503/2022 AM EDT 11:16 AM EDT Comment: Symptoms->Surveillance Resulting Agency Comment Spec In Lab Iker Cuevas MD MICROBIOLOGY - GENERAL ORDER [place]BS[place] Performing Organization Address City/[facility]/ZIP Code Phon e Number [address] POCT Glucose (12/11/2021 7:34 AM EDT) athologist Signature POC Glucose 198 65 - 199 [facility] mg/dL [facility] Comment: Supplemental ranges: <140 mg/dL before meals <180 mg/dL all other times of the day Specimen Anatomical Collection Method Collection Time Receive d Time (Source) Location / / Volume Laterality Blood 12/11/2021 7:34 AM 7:34 EDT AM EDT Iker Cuevas MD POINT OF CARE TEST ORDERABLE S Performing Organization Address City/State/[place] [address] (ABNORMAL) POCT Glucose (12/11/2021 5:07 AM EDT) athologist Signature POC Glucose 208 (H) 65 - 199 [facility] mg/dL [facility] Comment: Supplemental ranges: <140 mg/dL before meals <180 mg/dL all other times of the day Specimen Anatomical Collection Method Collection Time Receive d Time (Source) Location / / Volume Laterality Blood 12/11/2021 5:07 AM 2 5:07 EDT AM EDT Iker Cuevas MD POINT OF CARE TEST ORDERABLE S Performing Organization Address City/State/[place] [address] (ABNORMAL) Differential, Automated (12/11/2021 4:28 AM EDT) [facility] Method Time Signature Neutrophils % 79.6 % [facility] Neutr Abs (ANC) 7.01 (H) 1.70 - [facility] 6.10 [facility] x10(3)/[facility] L LABORATORY Lymphocytes % 9.1 % [facility] Lymphocytes Abs 0.8 (L) 0.9 - 3.2 [facility] x10(3)/[facility] LABORATORY Monocytes % 9.2 % [facility] Monocyte Abs 0.8 0.3 - 0.9 [facility] x10(3)/[facility] LABORATORY Eosinophils % 1.3 % [facility] Eosinophils Abs 0.1 0.0 - 0.4 [facility] x10(3)/[facility] LABORATORY Basophils % 0.5 % [facility] Basophils Abs 0.0 0.0 - 0.1 [facility] x10(3)/[facility] LABORATORY Immature Gran [...] Melisa Gran Abs 0.03 0.00 - 0.04 x10(3)/[facility] LABORATORY Specimen Anatomical Collection Method Collection Time Receive d Time (Source) Location / / Volume Laterality Blood 12/11/2021 4:28 AM 2 4:37 EDT AM EDT Resulting Agency Comment Spec In Lab Bijan Sun MD HEMATOLOGY ORDERABLES Performing Organization Address City/State/[place] [address] (ABNORMAL) Hemogram (12/11/2021 4:28 AM EDT) Analysis Performed At Patho logist Time Signature WBC 8.8 4.0 - 9.5 [facility] x[facility](3)/[facility] LABORATORY RBC 4.15 (L) 4.58 - [facility] 5.54 [facility] x10(6)/[facility] LABORATORY Hemoglobin 11.9 (L) 13.7 - [facility] 16.5 g/dL [facility] Hematocrit 36.9 (L) 40.5 - [facility] 48.5 % [facility] MCV 88.9 82.9 - [facility] 93.1 [facility] LABORATORY MCH 28.7 27.5 - [facility] 32.1 pg [facility] MCHC 32.2 32.0 - [facility] 35.7 g/dL [facility] Platelets 211 145 - 357 [facility] x10(3)/[facility] LABORATORY RDWSD 48.3 (H) 36.0 - [facility] 45.0 [facility] LABORATORY RDWCV 14.8 (H) 11.4 - [facility] 13.8 % [facility] MPV 9.6 7.6 - 12.9 [facility] LABORATORY nRBC % Auto 0.0 % [facility] nRBC Abs Auto 0.000 0.000 - [facility] 0.000 [facility] x10(3)/[facility] LABORATORY Specimen Anatomical Collection Method Collection Time Receive d Time (Source) Location / / Volume Laterality Blood 12/11/2021 4:28 AM 4:37 EDT AM EDT Resulting Agency Comment Spec In Lab Bijan Sun MD HEMATOLOGY ORDERABLES Performing Organization Address City/State/[place] [address] (ABNORMAL) Prothrombin Time (12/11/2021 4:28 AM EDT) P athologist Signature PT 17.7 (H) 9.4 - 12.5 [facility] LABORATORY INR 1.6 [facility] Comment: [...] Organization Address City/State/[place] [address] (ABNORMAL) BMP w/fasting Glucose (12/11/2021 4:28 AM EDT) athologist Signature Glucose 207 (H) 65 - 99 [facility] Fasting mg/dL [facility] Comment: ?Fasting* Glucose Interpretive C [...] BUN 49 (H) 10 - 20 mg/dL [facility] LABORATORY Creatinine 1.43 0.80 - 1.50 mg/dL [facility] Sodium 142 135 [...] Organization Address City/State/[place] [address] Magnesium (12/11/2021 4:28 AM EDT) P athologist Signature Magnesium 1.04 0.69 - 1.07 [facility] mmol/L [facility] Specimen Anatomical Collection Method Collection Time Receive d Time (Source) Location / / Volume Laterality Blood 12/11/2021 4:28 AM 2 4:37 EDT AM EDT Resulting Agency Comment Spec In Lab Iker Cuevas MD CHEMISTRY ORDERABLES Performing Organization Address City/State/[place] [address] POCT Glucose (12/11/2021 3:58 AM EDT) athologist Signature POC Glucose 189 65 - 199 [facility] mg/dL [facility] Comment: Supplemental ranges: <140 mg/dL before meals <180 mg/dL all other times of the day Specimen Anatomical Collection Method Collection Time Receive d Time (Source) Location / / Volume Laterality Blood 12/11/2021 3:58 AM 2 3:58 EDT AM EDT Iker Cuevas MD POINT OF CARE TEST ORDERABLE S Performing Organization Address City/State/[place] [address] (ABNORMAL) POCT Glucose (12/10/2021 11:45 PM EDT) athologist Signature POC Glucose 205 (H) 65 - 199 [facility] mg/dL [facility] Comment: Supplemental ranges: <140 mg/dL before meals <180 mg/dL all other times of the day Specimen Anatomical Collection Method Collection Time Receive d Time (Source) Location / / Volume Laterality Blood 12/10/2021 11:45 12/10/2021 PM EDT 11:45 PM EDT Iker Cuevas MD POINT OF CARE TEST ORDERABLE S Performing Organization Address City/State/[place] [address] (ABNORMAL) POCT Glucose (12/10/2021 7:54 PM EDT) athologist Signature POC Glucose 225 (H) 65 - 199 [facility] mg/dL [facility] Comment: Supplemental ranges: <140 mg/dL before meals <180 mg/dL all other times of the day Specimen Anatomical Collection Method Collection Time Receive d Time (Source) Location / / Volume Laterality Blood 12/10/2021 7:54 PM 2 7:54 EDT PM EDT Iker Cuevas MD POINT OF CARE TEST ORDERABLE S Performing Organization Address City/[facility]/[place] [address] Potassium (12/10/2021 7:46 PM EDT) athologist Signature Potassium 4.2 3.5 - 5.0 [facility] mmol/L [facility] Comment: Please note: ??Patients with [...] Cuevas MD CHEMISTRY ORDERABLES Performing Organization Address City/[facility]/[place] [address] (ABNORMAL) Basic Metabolic Panel (non-fasting) (12/10/2021 6:12 PM EDT) athologist Signature Glucose Lvl 246 (H) 65 - 199 [facility] mg/dL [facility] Comment: Diabetes: >=200 mg/dL plus symp toms BUN 50 (H) 10 - 20 mg/dL [facility] LABORATORY Creatinine 1.39 0.80 - 1.50 mg/dL [facility] Sodium 138 135 - 145 [...] Gap 16 (H) 5 - 15 mmol/L [facility] Organization Address City/State/[place] [address] POCT Glucose (12/10/2021 4:59 PM EDT) P athologist Signature POC Glucose 158 65 - 199 [facility] mg/dL [facility] Comment: Supplemental ranges: <140 mg/dL before meals <180 mg/dL all other times of the day Specimen Anatomical Collection Method Collection Time Receive d Time (Source) Location / / Volume Laterality Blood 12/10/2021 4:59 PM 2 4:59 EDT PM EDT Iker Cuevas MD POINT OF CARE TEST ORDERABLE S Performing Organization Address City/State/ZIP Code Phon e Number [address] (ABNORMAL) POCT Glucose (12/10/2021 12:43 PM EDT) P athologist Signature POC Glucose 241 (H) 65 - 199 [facility] mg/dL [facility] Comment: Supplemental ranges: <140 mg/dL before meals <180 mg/dL all other times of the day Specimen Anatomical Collection Method Collection Time Receive d Time (Source) Location / / Volume Laterality Blood 12/10/2021 12:43 12/10/2021 PM EDT 12:43 PM EDT kIer Cuevas MD POINT OF CARE TEST ORDERABLE S Performing Organization Address [facility]/[place] [address] EKG 12 Lead (12/10/2021 11:17 AM EDT) Component Value Ref Range Test Analysis Performed Pathologis t Method Time At Signature Ventricular rate 62 BPM MUSE SYSTEM Atrial Rate 62 BPM MUSE SYSTEM P-R Interval 142 ms MUSE SYSTEM QRS Duration 100 ms MUSE SYSTEM Q-T Interval 434 ms MUSE SYSTEM QTC Calculated 440 ms MUSE SYSTEM (Bezet) Calculated P [place] 34 degrees MUSE SYSTEM Calculated R [place] -39 degrees MUSE SYSTEM Calculated T [place] 92 degrees MUSE SYSTEM INTERPRETATION Normal sinus [...] Cuevas MD ECG ORDERABLES Performing Organization Address City/[facility]/ZIP Code Phon e Number MUSE SYSTEM CARDIAC CATHETERIZATION (12/10/2021 10:54 AM EDT) Specimen (Source) Anatomical Location Collection Method / Collectio n Time Received Time / Laterality Volume Narrative CARDIOMAC SYSTEM - 12/10/2021 12:04 PM E DT ?[facility] ? Cardiac Cathete rization/Intervention Report ? Patient Name: Don Fatima. ? Procedure Date: 12/10/2021 ? A #: [id number] ? Primary Physician: Vitaliy Nobles ? Case #: [id number] ? File Name: [id number] ? Catheterization Order Number: [id number] ? [facility] ? Final Report [place], [place] ? Patient Name: ? Don E. Stewa rt ? ID#: ?[id number] ? : ?1945 ? Procedure Date: ? December 10, 2021 ? Case #: ? [id number] ? Room: ? 1 ? Case Physician: ? Vitaliy P Mallorie, M. D. ?Start: ?08:41 ?Fellow: ? [place] [...] ?designated as ASA Class III. Th e [facility] clinical frailty scale is 5: [...] was Urgent. The indication for ?the label remover visit is ACS great er than 24 [...] ?3.75 guiding catheter and a 3.5 Fr [facility] 20 Mhz using Manual ?pullback. ??Imaging was [...] ?3.75 guiding catheter and a 3.5 Fr [facility] 20 Mhz using Manual ?pullback. ??Imaging was [...] require ?modification of this regimen. C onsult [facility] [...] Note Vitaliy Nobles MD - 01/14/2022 [facility] Cardiac Catheterization/Intervention Re port Patient Name: Kushal Don MccollumMadiha Procedure Date: 12/10/2021 A #: [id number] Primary Physician: Vitaliy Nobles Case #: [id number] File Name: [id number] Catheterization Order Number: [id number] [facility] Final Report [place], [place] Patient Name: Don Fatima ID#: [...] was Urgent. The indication for the label remover visit is ACS greater than 24 hrs [...] and a 3.5 Fr [facility] 20 Mhz using Manual pullback. Imaging was [...] and a 3.5 Fr [facility] 20 Mhz using Manual pullback. Imaging was [...] 262 (H) 65 - 199 [facility] mg/dL [facility] Comment: Supplemental ranges: <140 mg/dL before meals <180 mg/dL all other times of the day Specimen Anatomical Collection Method Collection Time Receive d Time (Source) Location / / Volume Laterality Blood 12/10/2021 10:30 12/10/2021 AM EDT 10:30 AM EDT Iker Cuevas MD POINT OF CARE TEST ORDERABLE S Performing Organization Address City/State/[place] [address] (ABNORMAL) POCT Glucose (12/10/2021 9:48 AM EDT) athologist Signature POC Glucose 279 (H) 65 - 199 [facility] mg/dL [facility] Comment: Supplemental ranges: <140 mg/dL before meals <180 mg/dL all other times of the day Specimen Anatomical Collection Method Collection Time Receive d Time (Source) Location / / Volume Laterality Blood 12/10/2021 9:48 AM 2 9:48 EDT AM EDT Iker Cuevas MD POINT OF CARE TEST ORDERABLE S Performing Organization Address City/State/[place] [address] (ABNORMAL) POCT Glucose (12/10/2021 9:07 AM EDT) P athologist Signature POC Glucose 268 (H) 65 - 199 [facility] mg/dL [facility] Comment: Supplemental ranges: <140 mg/dL before meals <180 mg/dL all other times of the day Specimen Anatomical Collection Method Collection Time Receive d Time (Source) Location / / Volume Laterality Blood 12/10/2021 9:07 AM 2 9:07 EDT AM EDT Iker Cuevas MD POINT OF CARE TEST ORDERABLE S Performing Organization Address City/State/[place] [address] (ABNORMAL) Point of Care Blood Gas Historical (12/10/2021 9:04 AM EDT) Patholo gist Method Time Signature POC pH 7.40 7.35 - [facility] 7.45 [facility] POC PCO2 40 35 - 45 [facility] mmHg [facility] POC PO2 63 (L) 85 - 104 [facility] LABORATORY POC Base Excess 0.0 -3.0 - 3.0 [facility] mmol/L [facility] POC HCO3 24.8 20.0 - [facility] 26.0 [facility] mmol/L HOSPITAL LABORATORY POC Sodium 143 135 - 145 [facility] mmol/L [facility] POC Potassium 3.7 3.5 - 5.0 [facility] mmol/L [facility] POC Ionized Ca 1.07 (L) 1.15 - [facility] 1.33 [facility] mmol/L HOSPITAL LABORATORY POC Hematocrit 30.0 (L) 40.0 - [facility] 51.0 % [facility] POC Calc Hgb 10.2 (L) 13.7 - [facility] 17.5 g/dL [facility] Comment: The calculation of hemoglobin f rom hematocrit assumes a normal MCHC. POC Bgas Loc CC LAB [facility] LABORATORY Specimen Anatomical Collection Method Collection Time Receive d Time (Source) Location / / Volume Laterality Blood 12/10/2021 9:04 AM 2 EDT 12:00 PM EDT Ifeanyi Truong MD CHEMISTRY ORDERABLES Performing Organization Address City/[facility]/[place] [address] (ABNORMAL) POCT Glucose (12/10/2021 7:19 AM EDT) athologist Signature POC Glucose 274 (H) 65 - 199 [facility] mg/dL [facility] Comment: Supplemental ranges: <140 mg/dL before meals <180 mg/dL all other times of the day Specimen Anatomical Collection Method Collection Time Receive d Time (Source) Location / / Volume Laterality Blood 12/10/2021 7:19 AM 2 7:19 EDT AM EDT Iker Cuevas MD POINT OF CARE TEST ORDERABLE S Performing Organization Address City/[facility] [place] [address] Heparin (unfractionated) Level (12/10/2021 4:25 AM EDT) athologist Signature Heparin UFH 0.69 IU/mL [facility] LABORATORY Comment: Heparin (anti-Xa) levels [...] Organization Address City/State/[place] [address] (ABNORMAL) Differential, Automated (12/10/2021 4:25 AM EDT) [facility] Method Time Signature Neutrophils % 79.8 % [facility] Neutr Abs (ANC) 7.47 (H) 1.70 - [facility] 6.10 [facility] x10(3)/[facility] LABORATORY Lymphocytes % 10.6 % [facility] Lymphocytes Abs 1.0 0.9 - 3.2 [facility] x10(3)/[facility] LABORATORY Monocytes % 8.4 % [facility] Monocyte Abs 0.8 0.3 - 0.9 [facility] x10(3)/[facility] LABORATORY Eosinophils % 0.6 % [facility] Eosinophils Abs 0.1 0.0 - 0.4 [facility] x10(3)/[facility] LABORATORY Basophils % 0.2 % [facility] Basophils Abs 0.0 0.0 - 0.1 [facility] x10(3)/[facility] LABORATORY Immature Gran [...] Melisa Gran Abs 0.04 0.00 - 0.04 x10(3)/[facility] LABORATORY Specimen Anatomical Collection Method Collection Time Receive d Time (Source) Location / / Volume Laterality Blood 12/10/2021 4:25 AM 2 4:34 EDT AM EDT Resulting Agency Comment Spec In Lab Morgan BROWN HEMATOLOGY ORDERABLES Performing Organization Address City/State/[place] [address] (ABNORMAL) Hemogram (12/10/2021 4:25 AM EDT) Analysis Performed At Patho logist Time Signature WBC 9.4 4.0 - 9.5 [facility] x[facility](3[facility] LABORATORY RBC 3.81 (L) 4.58 - [facility] 5.54 [facility] x10(6)/[facility] LABORATORY Hemoglobin 11.1 (L) 13.7 - [facility] 16.5 g/dL [facility] Hematocrit 34.0 (L) 40.5 - [facility] 48.5 % [facility] MCV 89.2 82.9 - [facility] 93.1 [facility] LABORATORY MCH 29.1 27.5 - [facility] 32.1 pg [facility] MCHC 32.6 32.0 - [facility] 35.7 g/dL [facility] Platelets 183 145 - 357 [facility] x10(3)/[facility] LABORATORY RDWSD 49.9 (H) 36.0 - [facility] 45.0 [facility] LABORATORY RDWCV 15.2 (H) 11.4 - [facility] 13.8 % [facility] MPV 9.8 7.6 - 12.9 [facility] LABORATORY nRBC % Auto 0.0 % [facility] nRBC Abs Auto 0.000 0.000 - [facility] 0.000 [facility] x10(3)/[facility] LABORATORY Specimen Anatomical Collection Method Collection Time Receive d Time (Source) Location / / Volume Laterality Blood 12/10/2021 4:25 AM 2 4:34 EDT AM EDT Resulting Agency Comment Spec In Lab Morgan BROWN HEMATOLOGY ORDERABLES Performing Organization Address City/State/[place] [address] (ABNORMAL) Prothrombin Time (12/10/2021 4:25 AM EDT) athologist Signature PT 20.0 (H) 9.4 - 12.5 [facility] LABORATORY INR 1.7 [facility] Comment: [...] Organization Address City/State/[place] [address] (ABNORMAL) BMP w/fasting Glucose (12/10/2021 4:25 AM EDT) athologist Signature Glucose 210 (H) 65 - 99 [facility] Fasting mg/dL [facility] Comment: ?Fasting* Glucose Interpretive C [...] BUN 54 (H) 10 - 20 mg/dL [facility] LABORATORY Creatinine 1.52 (H) [...] [facility] LABORATORY Calcium 8.0 (L) [...] Organization Address City/State/[place] [address] Magnesium (12/10/2021 4:25 AM EDT) athologist Signature Magnesium 0.95 0.69 - 1.07 [facility] mmol/L [facility] Specimen Anatomical Collection Method Collection Time Receive d Time (Source) Location / / Volume Laterality Blood 12/10/2021 4:25 AM 2 4:34 EDT AM EDT Resulting Agency Comment Spec In Lab Iker Cuevas MD CHEMISTRY ORDERABLES Performing Organization Address City/State/[place] [address] POCT Glucose (12/10/2021 1:58 AM EDT) athologist Signature POC Glucose 164 65 - 199 [facility] mg/dL [facility] Comment: Supplemental ranges: <140 mg/dL before meals <180 mg/dL all other times of the day Specimen Anatomical Collection Method Collection Time Receive d Time (Source) Location / / Volume Laterality Blood 12/10/2021 1:58 AM 2 1:58 EDT AM EDT Iker Cuevas MD POINT OF CARE TEST ORDERABLE S Performing Organization Address City/State/[place] [address] (ABNORMAL) POCT Glucose (12/09/2021 9:02 PM EDT) athologist Signature POC Glucose 313 (H) 65 - 199 [facility] mg/dL [facility] Comment: Supplemental ranges: <140 mg/dL before meals <180 mg/dL all other times of the day Specimen Anatomical Collection Method Collection Time Receive d Time (Source) Location / / Volume Laterality Blood 12/09/2021 9:02 PM 2 9:02 EDT PM EDT Iker Cuevas MD POINT OF CARE TEST ORDERABLE S Performing Organization Address City/State/[place] [address] Heparin (unfractionated) Level (12/09/2021 7:30 PM EDT) athologist Signature Heparin UFH 0.48 IU/mL [facility] LABORATORY Comment: Heparin (anti-Xa) levels [...] Organization Address City/State/[place] [address] (ABNORMAL) Basic Metabolic Panel (non-fasting) (12/09/2021 7:30 PM EDT) P athologist Signature Glucose Lvl 372 (H) 65 - 199 [facility] mg/dL [facility] Comment: Diabetes: >=200 mg/dL plus symp toms BUN 56 (H) 10 - 20 mg/dL [facility] LABORATORY Creatinine 1.75 (H) [...] LABORATORY CO2 22 22 - 31 mmol/L [facility] LABORATORY Anion Gap 14 5 [...] Organization Address City/State/[place] [address] (ABNORMAL) POCT Glucose (12/09/2021 6:34 PM EDT) P athologist Signature POC Glucose 408 (H) 65 - 199 [facility] mg/dL [facility] Comment: Supplemental ranges: <140 mg/dL before meals <180 mg/dL all other times of the day Specimen Anatomical Collection Method Collection Time Receive d Time (Source) Location / / Volume Laterality Blood 12/09/2021 6:34 PM 2 6:34 EDT PM EDT Iker Cuevas MD POINT OF CARE TEST ORDERABLE S Performing Organization Address City/State/[place] [address] (ABNORMAL) POCT Glucose (12/09/2021 6:32 PM EDT) athologist Signature POC Glucose 356 (H) 65 - 199 [facility] mg/dL [facility] Comment: Supplemental ranges: <140 mg/dL before meals <180 mg/dL all other times of the day Specimen Anatomical Collection Method Collection Time Receive d Time (Source) Location / / Volume Laterality Blood 12/09/2021 6:32 PM 2 6:32 EDT PM EDT Iker Cuevas MD POINT OF CARE TEST ORDERABLE S Performing Organization Address City/State/[place] [address] (ABNORMAL) POCT Glucose (12/09/2021 4:19 PM EDT) athologist Signature POC Glucose 347 (H) 65 - 199 [facility] mg/dL [facility] Comment: Supplemental ranges: <140 mg/dL before meals <180 mg/dL all other times of the day Specimen Anatomical Collection Method Collection Time Receive d Time (Source) Location / / Volume Laterality Blood 12/09/2021 4:19 PM 2 4:19 EDT PM EDT Iker Cuevas MD POINT OF CARE TEST ORDERABLE S Performing Organization Address City/[facility]/[place] [address] Heparin (unfractionated) Level (12/09/2021 1:29 PM EDT) athologist Signature Heparin UFH 0.42 IU/mL [facility] LABORATORY Comment: Heparin (anti-Xa) levels [...] Cuevas MD HEMATOLOGY ORDERABLES Performing Organization Address City/[facility]/[place] [address] (ABNORMAL) POCT Glucose (12/09/2021 12:02 PM EDT) P athologist Signature POC Glucose 235 (H) 65 - 199 [facility]dL [facility] Comment: Supplemental ranges: <140 mg/dL before meals <180 mg/dL all other times of the day Specimen Anatomical Collection Method Collection Time Receive d Time (Source) Location / / Volume Laterality Blood 12/09/2021 12:02 12/09/2021 PM EDT 12:02 PM EDT Iker Cuevas MD POINT OF CARE TEST ORDERABLE S Performing Organization Address City/[facility]/[place] [address] (ABNORMAL) POCT Glucose (12/09/2021 9:44 AM EDT) P athologist Signature POC Glucose 214 (H) 65 - 199 [facility] mg/dL [facility] Comment: Supplemental ranges: <140 mg/dL before meals <180 mg/dL all other times of the day Specimen Anatomical Collection Method Collection Time Receive d Time (Source) Location / / Volume Laterality Blood 12/09/2021 9:44 AM 2 9:44 EDT AM EDT Iker Cuevas MD POINT OF CARE TEST ORDERABLE S Performing Organization Address City/[facility]/[place] [address] EKG 12 Lead (12/09/2021 7:57 AM EDT) Component Value Ref Range Test Analysis Performed Pathologis t Method Time At Signature Ventricular rate 101 BPM MUSE SYSTEM Atrial Rate 101 BPM MUSE SYSTEM P-R Interval 150 ms MUSE SYSTEM QRS Duration 112 ms MUSE SYSTEM Q-T Interval 364 ms MUSE SYSTEM QTC Calculated 471 ms MUSE SYSTEM (Bezet) Calculated P [place] 59 degrees MUSE SYSTEM Calculated R [place] -42 degrees MUSE SYSTEM Calculated T [place] 102 degrees MUSE SYSTEM INTERPRETATION Sinus tachycardia Occasional Premature ventricular com plexes MUSE SYSTEM Left axis deviation 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) Abnormal ECG When compared with ECG of 08-DEC-2021 16:40, Premature ventricular complexes are now Present Confirmed by MD Fernandez Danette ([id number]) on 12/10/2021 4:55:06 PM Specimen Anatomical Collection Method Collection Time Receive d Time (Source) Location / / Volume Laterality 12/09/2021 7:57 AM 2 4:55 EDT PM EDT Iker Cuevas MD ECG ORDERABLES Performing Organization Address City/State/ZIP Code Phon e Number MUSE SYSTEM (ABNORMAL) POCT Glucose (12/09/2021 7:28 AM EDT) athologist Signature POC Glucose 263 (H) 65 - 199 [facility] mg/dL [facility] Comment: Supplemental ranges: <140 mg/dL before meals <180 mg/dL all other times of the day Specimen Anatomical Collection Method Collection Time Receive d Time (Source) Location / / Volume Laterality Blood 12/09/2021 7:28 AM 2 7:28 EDT AM EDT Iker Cuevas MD POINT OF CARE TEST ORDERABLE S Performing Organization Address City/State/[place] [address] (ABNORMAL) Hemoglobin A1c (12/09/2021 6:18 AM EDT) Analysis Performed At Patho logist Time Signature Hemoglobin A1C 7.4 (H) 4.3 - 5.6 [facility] [...] hemoglobinopathies. Additional resources are available on [facility] ADA website. Macario HAMMOND, Ruthann J, Deysi R, et al. ??Tr anslating the A1C assay into estimated average glucose values. ??Diabetes Care 2008:31(8):9487-4123. Specimen Anatomical Collection Method Collection Time Receive d Time (Source) Location / / Volume Laterality Blood Venous Draw / 12/09/2021 6:18 AM 12/10/19 22 Unknown EDT 12:24 PM EDT Resulting Agency Comment Spec In Lab Migdalia BROWN CHEMISTRY ORDERABLES Performing Organization Address City/State/ZIP Code [place] [address] (ABNORMAL) Prothrombin Time (12/09/2021 6:18 AM EDT) athologist Signature PT 26.6 (H) 9.4 - 12.5 [facility] LABORATORY INR 2.3 [facility] LABORATORY Comment: [...] Migdalia BROWN HEMATOLOGY ORDERABLES Performing Organization Address City/[facility]/[place] [address] Heparin (unfractionated) Level (12/09/2021 6:18 AM EDT) athologist Signature Heparin UFH 0.24 IU/mL [facility] LABORATORY Comment: Heparin (anti-Xa) levels [...] Cuevas MD HEMATOLOGY ORDERABLES Performing Organization Address City/[facility]/[place] [address] (ABNORMAL) Differential, Automated (12/09/2021 6:18 AM EDT) [facility] Method Time Signature Neutrophils % 91.5 % [facility] LABORATORY Neutr Abs (ANC) 15.78 (H) 1.70 - [facility] 6.10 [facility] x10(3)/[facility] LABORATORY Lymphocytes % 2.9 % [facility] LABORATORY Lymphocytes Abs 0.5 (L) 0.9 - 3.2 [facility] x10(3)/[facility] LABORATORY Monocytes % 4.9 % [facility] LABORATORY Monocyte Abs 0.8 0.3 - 0.9 [facility] x10(3)/[facility] LABORATORY Eosinophils % 0.0 % [facility]OR[facility] Eosinophils Abs 0.0 0.0 - 0.4 [facility] x10(3)/[facility] LABORATORY Basophils % 0.2 % [facility] LABORATORY Basophils Abs 0.0 0.0 - 0.1 [facility] x10(3)/[facility] LABORATORY Immature Gran % 0.50 % [facility] [...] City/State/ZIP Code Phon e Number [place] [id number] (ABNORMAL) Hemogram (12/09/2021 6:18 AM EDT) Analysis Performed At Patho logist Time Signature WBC 17.2 (H) 4.0 - 9.5 [facility] x10(3)/[facility] LABORATORY RBC 4.32 (L) 4.58 - [facility] 5.54 [facility] x10(6)/[facility] LABORATORY Hemoglobin 12.6 (L) 13.7 - [facility] 16.5 g/dL [facility] Hematocrit 38.9 (L) 40.5 - [facility] 48.5 % [facility] MCV 90.0 82.9 - [facility] 93.1 [facility] LABORATORY MCH 29.2 27.5 - [facility] 32.1 pg [facility] MCHC 32.4 32.0 - [facility] 35.7 g/dL [facility] Platelets 193 145 - 357 [facility] x10(3)/[facility] LABORATORY RDWSD 50.4 (H) 36.0 - [facility] 45.0 [facility] LABORATORY RDWCV 15.2 (H) 11.4 - [facility] 13.8 % [facility] MPV 9.5 7.6 - 12.9 [facility] LABORATORY nRBC % Auto 0.0 % [facility] LABORATORY nRBC Abs Auto 0.000 0.000 - [facility] 0.000 [facility] x10(3)/[facility] LABORATORY Specimen Anatomical Collection Method Collection Time Receive d Time (Source) Location / / Volume Laterality Blood 12/09/2021 6:18 AM 6:33 EDT AM EDT Resulting Agency Comment Spec In Lab Morgan BROWN HEMATOLOGY ORDERABLES Performing Organization Address City/State/[place] [address] Lipid Panel (Reflex Direct LDL) (12/09/2021 6:18 AM EDT) P athologist Signature Chol, Total 105 mg/dL [facility] LABORATORY Comment: Lower Risk: <200 mg/dL Average Risk: 200-239 mg/dL Higher Risk: >rr=661 mg/dL Triglycerides 133 mg/dL [facility] LABORATORY Comment: Average Risk/Lower Risk: <150 mg/dL Borderline High Risk: 150-199 mg/dL High Risk: 200-499 mg/dL Very High Risk: >om=231 mg/dL HDL 42 mg/dL [facility] LABORATORY Comment: Males: ?? Higher Risk: <40 mg/dL Females: ?? Higher Risk: <50 mg/dL LDL Cholesterol 36 mg/dL [facility] LABORATORY Comment: Lowest Risk: <100 mg/dL Lower Risk: 100-129 mg/dL Borderline High Risk: 130-159 mg/dL High Risk: 160-189 mg/dL Very High Risk: >hk=768 mg/dL Chol/HDL Ratio 2.5 ratio [facility] LABORATORY Lipid Interpretation See Note [facility] LABORATORY Comment: Lipid management should be guided by a p atient? s ASCVD risk, goals and preferences. ACC/AHA Guidelines recommend high intens ity statin if clinical ASCVD or LDL greater than or equal to 190 mg/dL. [email or web address] Adults aged 40-75 with LDL 70-189 mg/dL should have their 10 year ASCVD risk estimated with the ACC/AHA ASCVD risk es timator http://tools.acc.org/XXRNW-Mpur-Amfsbqsd r/ Statin should be discussed if risk [...] Organization Address City/State/[place] [address] TSH (12/09/2021 6:18 AM EDT) athologist Signature TSH 1.60 0.27 - 4.20 [facility] mcIU/mL [facility] LABORATORY Comment: Reference Interval (mcIU/mL): Females: ??First Trimester: 0.23-3.88 ??Second Trimester: 0.22-3.90 ??Third Trimester: 0.44-4.66 Specimen Anatomical Collection Method Collection Time Receive d Time (Source) Location / / Volume Laterality Blood 12/09/2021 6:18 AM 2 6:33 EDT AM EDT Resulting Agency Comment Spec In Lab Iker Cuevas MD CHEMISTRY ORDERABLES Performing Organization Address City/[facility]/ZIP Code Phon e Number [address] Hepatic Function Panel (12/09/2021 6:18 AM EDT) athologist [facility] Total Protein 7.3 6.1 - 8.0 [facility] g/dL [facility] Albumin 4.2 3.2 - 5.2 [facility] g/dL [facility] AST 25 0 - 39 [facility] unit/L [facility] ALT 15 0 - 55 [facility] unit/L [facility] Alk Phos 75 40 - 130 [facility] unit/L [facility] Total 1.1 0.2 - 1.3 [facility] Bilirubin mg/dL [facility]OR[facility] Bili, Direct 0.2 0.0 - 0.3 [facility] mg/dL [facility] Specimen Anatomical Collection Method Collection Time Receive d Time (Source) Location / / Volume Laterality Blood 12/09/2021 6:18 AM 2 6:33 EDT AM EDT Resulting Agency Comment Spec In Lab Iker Cuevas MD CHEMISTRY ORDERABLES Performing Organization Address City/[facility] Phon e Number [address] (ABNORMAL) BMP w/fasting Glucose (12/09/2021 6:18 AM EDT) athologist Signature Glucose 235 (H) 65 - 99 [facility] Fasting mg/dL [facility]OR[facility] Comment: ?Fasting* Glucose Interpretive C [...] BUN 49 (H) 10 - 20 mg/dL [facility] LABORATORY Creatinine 1.33 0.80 [...] Cuevas MD CHEMISTRY ORDERABLES Performing Organization Address City/[facility]/ZIP Code Phon e Number [address] Magnesium (12/09/2021 6:18 AM EDT) athologist Signature Magnesium 0.81 0.69 - 1.07 [facility] mmol/L [facility] LABORATORY Specimen Anatomical Collection Method Collection Time Receive d Time (Source) Location / / Volume Laterality Blood 12/09/2021 6:18 AM 2 6:33 EDT AM EDT Resulting Agency Comment Spec In Lab Iker Cuevas MD CHEMISTRY ORDERABLES Performing Organization Address City/[facility] [place] [address] (ABNORMAL) Troponin (12/09/2021 6:18 AM EDT) athologist Signature Troponin-T 1.13 (H) 0.00 - [facility] 0.00 ng/mL [facility]OR[facility] Comment: The 99th percentile for Troponin T is le ss than 0.01 ng/mL, any detectable cTnT concentration using this assay should be considered elevated. According to the third universal definit ion of myocardial infarction the following criteria with a clinical prese ntation consistent with acute myocardial ischemia meets the diagnosis for a myocardial infarction (NE). Detection of a rise and/or fall of [...] additional sample may be indicated. Reference: Third Willcox Definition of Myocardial Infarction. Journal of the [place] [employer] 2012;60:1581-98 Specimen Anatomical Collection Method Collection Time Receive d Time (Source) Location / / Volume Laterality Blood 12/09/2021 6:18 AM 6:33 EDT AM EDT Resulting Agency Comment Spec In Lab Iker Cuevas MD CHEMISTRY ORDERABLES Performing Organization Address City/State/ZIP Code Phon e Number [place] [id number] XR Chest One View [...] who have questions please contact the health mall plant caretaker that requested your imaging first. [...] ho have questions please contact the health mall plant caretaker that requested your imaging first. Amber Sanches MD IMG DX ORDERABLES (ABNORMAL) BLOOD GAS 2 ARTERIAL (12/09/2021 5:14 AM EDT) Analysis Performed At Patho logis Time Signature pH Art 7.43 7.35 - [facility] 7.45 [facility]OR[facility] pCO2 Art 36 35 - 45 [facility] LABORATORY pO2 Art 67 (L) 85 - 104 [facility] LABORATORY HCO3 Art 23.4 20.0 - [facility] 26.0 [facility] mmol/L [facility] LABORATORY BE Art -0.9 -3.0 - 3.0 [facility] mmol/L [facility] Hgb Blood Gas 13.2 (L) 13.7 - [facility] 16.5 g/dL [facility] O2HB Art 91.3 (L) 94.0 - [facility] 97.0 % [facility] COHB Art 0.4 % [facility] FIO2 Art 35 % [facility] LABORATORY Flow Art 8.0 LPM [facility] LABORATORY PF Ratio Art 191 [facility] LABORATORY Specimen Anatomical Collection Method Collection Time Receive d Time (Source) Location / / Volume Laterality Blood 12/09/2021 5:14 AM 5:14 EDT AM EDT Iker Cuevas MD CHEMISTRY ORDERABLES Performing Organization Address City/State/[place] [address] POCT Glucose (12/09/2021 4:46 AM EDT) athologist Signature POC Glucose 198 65 - 199 [facility] mg/dL [facility]OR[facility] Comment: Supplemental ranges: <140 mg/dL before meals <180 mg/dL all other times of the day Specimen Anatomical Collection Method Collection Time Receive d Time (Source) Location / / Volume Laterality Blood 12/09/2021 4:46 AM 2 4:46 EDT AM EDT Iker Cuevas MD POINT OF CARE TEST ORDERABLE S Performing Organization Address City/State/[place] [address] (ABNORMAL) POCT Glucose (12/09/2021 3:01 AM EDT) athologist Signature POC Glucose 225 (H) 65 - 199 [facility] mg/dL [facility] Comment: Supplemental ranges: <140 mg/dL before meals <180 mg/dL all other times of the day Specimen Anatomical Collection Method Collection Time Receive d Time (Source) Location / / Volume Laterality Blood 12/09/2021 3:01 AM 2 3:01 EDT AM EDT Iker Cuevas MD POINT OF CARE TEST ORDERABLE S Performing Organization Address City/State/[place] [address] (ABNORMAL) POCT Glucose (12/08/2021 10:55 PM EDT) athologist Signature POC Glucose 327 (H) 65 - 199 [facility] mg/dL [facility] Comment: Supplemental ranges: <140 mg/dL before meals <180 mg/dL all other times of the day Specimen Anatomical Collection Method Collection Time Receive d Time (Source) Location / / Volume Laterality Blood 12/08/2021 10:55 12/08/2021 PM EDT 10:55 PM EDT Iker Cuevas MD POINT OF CARE TEST ORDERABLE S Performing Organization Address City/State/ZIP Code Phon e Number [place] [phone] Heparin (unfractionated) Level (12/08/2021 10:03 PM EDT) athologist [facility] Heparin UFH 0.18 IU/mL [facility] LABORATORY Comment: Heparin (anti-Xa) levels [...] Address City/State/ZIP Code Phon e Number [address] (ABNORMAL) Troponin (12/08/2021 10:03 PM EDT) [facility] Trop[facility]-T 0.92 (H) 0.00 - [facility] 0.00 ng/mL [facility] Comment: The 99th percentile for Troponin T is le ss than 0.01 ng/mL, any detectable cTnT concentration using this assay should be considered elevated. According to the third universal definit ion of myocardial infarction the following criteria with a clinical prese ntation consistent with acute myocardial ischemia meets the diagnosis for a myocardial infarction (NE). Detection of a rise and/or fall of [...] additional sample may be indicated. Reference: Third Willcox Definition of Myocardial Infarction. Journal of the [place] [employer] 2012;60:1581-98 Specimen Anatomical Collection Method Collection Time Receive d Time (Source) Location / / Volume Laterality Blood 12/08/2021 10:03 12/08/2021 PM EDT 10:31 PM EDT Resulting Agency Comment Spec In Lab Iker Cuevas MD CHEMISTRY ORDERABLES Performing Organization Address City/[facility]/[place] [address] (ABNORMAL) POCT Glucose (12/08/2021 8:22 PM EDT) athologist Signature POC Glucose 429 (H) 65 - 199 [facility] mg/dL [facility] Comment: Supplemental ranges: <140 mg/dL before meals <180 mg/dL all other times of the day Specimen Anatomical Collection Method Collection Time Receive d Time (Source) Location / / Volume Laterality Blood 12/08/2021 8:22 PM 8:22 EDT PM EDT Iker Cuevas MD POINT OF CARE TEST ORDERABLE S Performing Organization Address City/State/[place] [address] (ABNORMAL) POCT Glucose (12/08/2021 7:06 PM EDT) P athologist Signature POC Glucose 442 (H) 65 - 199 [facility] mg/dL [facility] Comment: Supplemental ranges: <140 mg/dL before meals <180 mg/dL all other times of the day Specimen Anatomical Collection Method Collection Time Receive d Time (Source) Location / / Volume Laterality Blood 12/08/2021 7:06 PM 2 7:06 EDT PM EDT Iker Cuevas MD POINT OF CARE TEST ORDERABLE S Performing Organization Address City/State/ZIP Code Phon e Number [address] Magnesium (12/08/2021 6:02 PM EDT) athologist Signature Magnesium 0.86 0.69 - 1.07 [facility] mmol/L [facility]OR[facility]ORY Specimen Anatomical Collection Method Collection Time Receive d Time (Source) Location / / Volume Laterality Blood 12/08/2021 6:02 PM 2 6:36 EDT PM EDT Resulting Agency Comment Spec In Lab Iker Cuevas MD CHEMISTRY ORDERABLES Performing Organization Address City/[facility]/[place] [address] (ABNORMAL) Basic Metabolic Panel (non-fasting) (12/08/2021 6:02 PM EDT) athologist Signature Glucose Lvl 392 (H) 65 - 199 [facility] mg/dL [facility] Comment: Diabetes: >=200 mg/dL plus symp toms BUN 41 (H) 10 - 20 mg/dL [facility] LABORATORY Creatinine 1.44 0.80 [...] Gap 16 (H) 5 - 15 mmol/L [facility] [...] City/State/ZIP Code Phon e Number [place] [id number] Drive (ABNORMAL) Differential, Automated (12/08/2021 6:02 PM EDT) [facility] Method Time Signature Neutrophils % 89.5 % [facility] LABORATORY Neutr Abs (ANC) 13.97 (H) 1.70 - [facility] 6.10 [facility] x10(3)/[facility] LABORATORY Lymphocytes % 3.7 % [facility] LABORATORY Lymphocytes Abs 0.6 (L) 0.9 - 3.2 [facility] x10(3)/[facility] LABORATORY Monocytes % 6.1 % [facility]ORATORY Monocyte Abs 1.0 (H) 0.3 - 0.9 [facility] x10(3)/[facility] LABORATORY Eosinophils % 0.0 % [facility]ORY Eosinophils Abs 0.0 0.0 - 0.4 [facility] x10(3)/[facility] LABORATORY Basophils % 0.2 % [facility]ORATORY Basophils Abs 0.0 0.0 - 0.1 [facility] x10(3)/[facility] LABORATORY Immature Gran % 0.50 % [facility] [...] Abs 0.08 (H) 0.00 - 0.04 x10(3)/[facility] LABORATORY Specimen Anatomical Collection Method Collection Time Receive d Time (Source) Location / / Volume Laterality Blood 12/08/2021 6:02 PM 6:36 EDT PM EDT Resulting Agency Comment Spec In Lab Morgan BROWN HEMATOLOGY ORDERABLES Performing Organization Address City/State/[place] [address] (ABNORMAL) Hemogram (12/08/2021 6:02 PM EDT) Analysis Performed At Patho logist Time Signature WBC 15.6 (H) 4.0 - 9.5 [facility] x10(3)/[facility] LABORATORY RBC 4.05 (L) 4.58 - [facility] 5.54 [facility] x10(6)/[facility] LABORATORY Hemoglobin 11.8 (L) 13.7 - [facility] 16.[facility] g/dL [facility] Hematocrit 35.8 (L) 40.5 - [facility] 48.5 % [facility] MCV 88.4 82.9 - [facility] 93.1 [facility] LABORATORY MCH 29.1 27.5 - [facility] 32.1 pg [facility] MCHC 33.0 32.0 - [facility] 35.7 g/dL [facility] Platelets 178 145 - 357 [facility] x10(3)/[facility] LABORATORY RDWSD 49.3 (H) 36.0 - [facility] 45.0 [facility] LABORATORY RDWCV 15.1 (H) 11.4 - [facility] 13.8 % [facility] MPV 10.4 7.6 - 12.9 [place] fL [facility] nRBC % Auto 0.0 % [facility] nRBC Abs Auto 0.000 0.000 - [place] 0.000 [facility] x10(3)/[facility] LABORATORY Specimen Anatomical Collection Method Collection Time Receive d Time (Source) Location / / Volume Laterality Blood 12/08/2021 6:02 PM 6:36 EDT PM EDT Resulting Agency Comment Spec In Lab Morgan BROWN HEMATOLOGY ORDERABLES Performing Organization Address City/State/[place] [address] (ABNORMAL) Troponin (12/08/2021 6:02 PM EDT) P athologist Signature Troponin-T 0.89 (H) 0.00 - [facility] 0.00 ng/mL [facility] Comment: The 99th percentile for Troponin T is le ss than 0.01 ng/mL, any detectable cTnT concentration using this assay should be considered elevated. According to the third universal definit ion of myocardial infarction the following criteria with a clinical prese ntation consistent with acute myocardial ischemia meets the diagnosis for a myocardial infarction (NE). Detection of a rise and/or fall of [...] additional sample may be indicated. Reference: Third Willcox Definition of Myocardial Infarction. Journal of the [place] [employer] 2012;60:1581-98 Specimen Anatomical Collection Method Collection Time Receive d Time (Source) Location / / Volume Laterality Blood 12/08/2021 6:02 PM 2 6:36 EDT PM EDT Resulting Agency Comment Spec In Lab Iker Cuevas MD CHEMISTRY ORDERABLES Performing Organization Address City/State/ZIP Code [place] [address] COVID-19 PCR (12/08/2021 5:00 PM EDT) [facility] Method Time Signature SARS-CoV-2 Not Detected Not Detected [facility] RNA PCR [facility] LABORATORY Comment: This result should be interpreted [...] using the Simplex[employer] COVID-19 Direct Assay by [email or web address] as authorized by the FDA issued Emergency [...] Department of Pathology and Laboratory Medicine at [facility], certified under the Clinical Laboratory Improvement Amendmen [...] clinical management guidance information are available at [facility] CDC Coronavirus Disease 2019 (COVID-19) webpage under Information fo r Healthcare Professionals (https://www.cdc.gov/coronavirus/2019-nc ov/hcp/index.html). Additional information about this and ot her EUA tests can be found in provider and patient fact sheets at the following FDA website: https://www.fda.gov/medical-devices/qrqtxuifgxm-kagkgay-0628-lhirc-73-creauzfwc- cud-itqgwiaqdyuort-dbqcwxv-devices/srktl-adlhgrzdmbe-netf SARS-CoV-2 Source SKI GUIDE Swab [facility] Specimen (Source) Anatomical Collection Method Collection Time Re ceived Time Location / / Volume Laterality Nasopharyngeal Swab 12/08/2021 5:00 12/08 PM EDT 6:03 PM EDT Comment: Symptoms->Surveillance Resulting Agency Comment Spec In Lab Iker Cuevas MD MICROBIOLOGY - GENERAL ORDER [place] Performing Organization Address City/State/[place] [address] EKG 12 Lead (12/08/2021 4:40 PM EDT) Component Value Ref Range Test Analysis Performed Pathologis t Method Time At Signature Ventricular rate 78 BPM MUSE SYSTEM Atrial Rate 78 BPM MUSE SYSTEM P-R Interval 152 ms MUSE SYSTEM QRS Duration 96 ms MUSE SYSTEM Q-T Interval 396 ms MUSE SYSTEM QTC Calculated 451 ms MUSE SYSTEM (Bezet) Calculated P [place] 44 degrees MUSE SYSTEM Calculated R [place] -31 degrees MUSE SYSTEM Calculated T [place] 124 degrees MUSE SYSTEM INTERPRETATION Normal sinus [...] 400 (H) 65 - 199 [facility] mg/dL [facility] Comment: Supplemental ranges: <140 mg/dL before meals <180 mg/dL all other times of the day Specimen Anatomical Collection Method Collection Time Receive d Time (Source) Location / / Volume Laterality Blood 12/08/2021 4:34 PM 2 4:34 EDT PM EDT Iker Cuevas MD POINT OF CARE TEST ORDERABLE S Performing Organization Address City/State/[place] [address] documented in this encounter [...] Coronary atherosclerosis of unspecified type of vessel, campo or graft Cardiomyopathy, ischemic Other specified forms [...] at 1524, Until 11/23 at 1545, FRANCINE REYES.: cabinet override heparin (porcine) 50 units/mL New [...] 11/23 at 0900, Until Discontinued, Routine 1230 (SEP Unhold - Provider: Admin Adt) apixaban (Eliquis) [...] furosemide (Lasix) (10 mg/mL) injection 80 mg ([facility] ED) 174 (Given - Provider: Emma Garcia [...] Provider: Emma Garcia RN - Reason: NPO)0805 (MAR Hold - Provider: Admin Adt - [...] 1-6 Units (CANCELED) 0735 (Given - Provider: Emam Garcia RN )0805 (MAR Hold - Provider: [...] Emma Garcia, VAMSI)1609 (Given - Provider: Emma Garcia, VAMSI)1847 (Given [...] Procedural area)0900 (Not Given - Provider: Emma Garcia, VAMSI - Reason: See comment - Comment: given before cath) 0835 (Given - Provider: Emma Garcia RN) 0828 (Given - Provider: Lilliana Esteban, VAMSI) 100 mg, Oral, DAILY, First dose on Wed at 0900, Until Discontinued, Routine 1230 (MAR Unhold - Provider: Admin Adt) magnesium sulfate 2 g in sterile water 50 mL infusion (COMPLETED) 1043 (New Bag - Provider: Anthony Fatima, RN)1243 (Stopped - Provider: Emma Garcia, VAMSI) 2 g, Intravenous, ONCE, 1 dose, On Wed at 1100, Administer over 120 Minutes metoprolol tartrate (Lopressor) tablet 12.5 mg 0556 (G iven - Provider: Maryjane Joyce, RN)0805 (SEP Hold - Provider: Admin Adt - Reason: Transfer to a Procedural area)1200 (Not Given - Provider: Emma Garcia RN - Reason: Transfer to a Procedural area)1230 (SEP Unhold - Provider: Admin Adt) 0504 (Given - Provider: Barbara Boogie, RN)1217 (Given - Provider: Emma Garcia, VAMSI)1717 [...] Admin Adt) 0844 (Given - Provider: Emma K Radha, RN) 0900 (Hold - Provider: Lilliana Esteban [...] Procedural area)1230 (MAR Unhold - Provider: Admin Adt)1746 (Given - [...] 25 mg, Oral, DAILY, First dose on Wed at 0915, Until Discontinued, DO NOT SPLIT, [...] area)1230 (MAR Unhold - Provider: Admin Adt) 650 mg, [...] injection solution 1 mg( Linked Group 2) 804 ([facility] Hold - Provider: Admin Adt - Reason: Transfer to a Procedural area)123 (SEP Unhold - Provider: Admin Adt) 1 [...] glucose (Glutose) 40% oral geL(Linked Group 2) 804 ([facility] Hold - Provider: Admin Adt - Reason: Transfer to a Procedural area)1229 ([facility] Unhold - Provider: Admin Adt) 15-30 g [...] (Intra-Procedure), Routine niCARdipine (Cardene) (100 mcg/mL) dilution (PATIENT SERVICE SPECIALIST) (CANCELED) 1030 (Given - Provider: Vitaliy Nobles [...] episode. & nbsp; For persistent hypoglycemia, con classroom monitor longer-acting treatment for the duration of the [...]
Routine documented in this encounter Care Teams Scuba Dive Training Instructor Relationship Specialty Start Date End Date Lovely Vicente MD PCP - General 04/16/[address] [place] [address] documented as of this encounter
--- OUTSIDE RECORDS SUMMARY | 2022-03-11 11:24 | XMS_ITS | Encounter Summary ---
:1945 Author Organization [facility] Address [facility] [place] [place] [address] Care Team Providers Name Role Phone Lovely Vicente MD Primary Care Provider Reason for Visit Auth/Cert Specialty Diagnoses / Procedures Referred By Contact Refer red To Contact Diagnoses ASCVD (arteriosclerotic cardiovascular disease) [I25.10] Vitaliy Nobles MD [facility] Procedures PRO PERC TRLUML CORONARY STENT W/ANGIO ONE ART/BRANCH CARDIAC CATHETERIZATION STENT PLACEMENT-SINGLE MAJOR CORONARY ARTERY OR BRANCH [facility] [place] [address] Referral ID Status Reason Start Date Expiration Date Visits Requ ested Visits Authorized [id number] 1 1 Encounter Details Date Type Department Care Team Description 01/30/2022 Surgery Fiber Optic Assembly Worker Asa Coulter MD CARDIAC CATHETERIZATION [facility] [place] [address] [place] [address] [phone] (Wo rk) Social History Tobacco Use Types [...] and Clopidogrel. Please follow up with your drier helper in the next 4-6 weeks. We have made a referral to cardiac rehab. Please see the attached instructions regarding care to your right wrist access site. AttachmentsThe following attachments cannot be sent through Care Everywhere. Coronary Angiogram: Post-op ([place]ican)documented in this encounter Medications at Time of [...] recent PCI presenting for staged PCI to [facility]. The pt states he has been [...] recent PCI presenting for staged PCI to [facility]. The indications, expected benefits, and potential [...] SSU team Don has history of prior SC and CABG. I had referred him to cardiac rehab at [facility] last month per HF team. He was waiting until this intervention before starting the program. Reviewed managing angina /use of sl nitroglycerin. Given parameters for home exercise. 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 We discussed short walks several times per day. Will send [facility] his discharge summary from this admission. The patient should be contacted by the Program within 1- 2 weeks from discharge. Brief Op Note - Vitaliy Nobles MD - 01/30/2022 10:19 AM EDT Images from the original note were not included. [facility] [place] [place] [address] CORONARY ANGIOGRAM AND PERCUTANEOUS CORONARY INTERVENTION REPORT Patient: Don Fatima : 1945 MR number: [id number] Date of Service: 01/30/2022 Bus Escort: Vitaliy Nobles MD Fellow: KEYON Elizabeth INDICATION: [...] a long 2.0 x 26 mm HARDEEP [place] TUCKER stent and positioned it at the [...] using a 2.0 x 26 mm HAR[place] TUCKER stent. This completes the revascularization ofall [...] MD [facility] [address] [place] 0[address] (Wo rk) 05/28/2022 Appointment Cardiology Zulma Dolan MD [facility] I[place] 0375 (Wo rk) 05/28/2022 Laboratory Appointment Lab 05/28/2022 Office Visit Zulma Garrison MD [facility] [place] [address] Liz Poole PA [facility] [place] [address] 06/10/2022 Office Visit Dermatology Laura Scherer MD [facility] ER DR [address]-DERMAT [facility] [place], [place] [address] (Wo rk) Scheduled Orders [...] LABORATORY Neutr Abs (ANC) 3.96 1.70 - [facility] 6.10 [facility] x10(3)/[facility] LABORATORY Lymphocytes % 16.3 % [facility] LABOR[facility]ORY Lymphocytes Abs 0.9 0.9 - 3.2 [facility] x10(3)/[facility] LABORATORY Monocytes % 10.0 % [facility] LABORATORY Monocyte Abs 0.6 0.3 - 0.9 [facility] x10(3)/[facility] LABORATORY Eosinophils % 0.5 % [facility] LABORATORY Eosinophils Abs 0.0 0.0 - 0.4 [facility] x10(3)/[facility] LABORATORY Basophils % 0.5 % [facility] LABORATORY Basophils Abs 0.0 0.0 - 0.1 [place] [id number](3)/[facility] LABORATORY Immature Gran % 0.90 % ST. [...] Organization Address City/State/[place] [address] (ABNORMAL) Hemogram (01/30/2022 2:12 PM EDT) Analysis Performed At Patho logist Time Signature WBC 5.5 4.0 - 9.5 [facility] x10(3)/[facility] LABORATORY RBC 4.30 (L) 4.58 - [place] 5.54 [facility] x10(6)/[facility] LABORATORY Hemoglobin 12.7 (L) 13.7 - [place] 16.5 g/dL [facility]ORY Hematocrit 39.4 (L) 40.5 - [place] 48.5 % [facility]ORATORY MCV 91.6 82.9 - [facility] 93.1 [facility] LABORATORY MCH 29.5 27.5 - [place] 32.1 pg [facility] LAB[facility] MCHC 32.2 32.0 - [place] 35.7 g/dL [facility] Platelets 172 145 - 357 [facility] x10(3)/[facility] LABORATORY RDWSD 54.5 (H) 36.0 - [facility] 45.0 [facility] LABORATORY RDWCV 16.4 (H) 11.4 - [facility] 13.8 % [facility] LABORATORY MPV 9.2 7.6 - 12.9 [facility] LABORATORY nRBC % Auto 0.0 % [facility] LABORATORY nRBC Abs Auto 0.000 0.000 - [facility] 0.000 [facility] x10(3)/[facility] LABORATORY Specimen Anatomical Collection Method Collection Time Receive d Time (Source) Location / / Volume Laterality Blood 01/30/2022 2:12 PM 2 2:37 EDT PM EDT Resulting Agency Comment Spec In Lab Eddi Elizabeth Jr., MD HEMATOLOGY ORDERABLES Performing Organization Address City/State/[place] [address] (ABNORMAL) Basic Metabolic Panel (non-fasting) (01/30/2022 2:12 PM EDT) P athologist Signature Glucose Lvl 163 65 - 199 [facility] mg/dL [facility] Comment: Diabetes: >=200 mg/dL [...] Organization Address City/State/[place] [address] POCT Glucose (01/30/2022 1:41 PM EDT) athologist Signature POC Glucose 148 65 - 199 [facility] mg/dL [facility] Comment: Supplemental ranges: <140 mg/dL before meals <180 mg/dL all other times of the day Specimen Anatomical Collection Method Collection Time Receive d Time (Source) Location / / Volume Laterality Blood 01/30/2022 1:41 PM 1:41 EDT PM EDT Vitaliy Sandra Nobles MD POINT OF CARE TEST ORDERABLE S Performing Organization Address City/State/ZIP Code Phon e Number [address] POCT Glucose (01/30/2022 10:48 AM EDT) P athologist Signature POC Glucose 193 65 - 199 [facility] mg/dL [facility] Comment: Supplemental ranges: <140 [...] [facility]/ZIP [place] [address] EKG 12 Lead (01/30/2022 10:33 AM EDT) Component Value Ref Range Test Analysis Performed Pathologis t Method Time At Signature Ventricular rate 64 BPM MUSE SYSTEM Atrial Rate 64 BPM MUSE SYSTEM P-R Interval 162 ms MUSE SYSTEM QRS Duration 94 ms MUSE SYSTEM Q-T Interval 422 ms MUSE SYSTEM QTC Calculated 435 ms MUSE SYSTEM (Bezet) Calculated P [place] 41 degrees MUSE SYSTEM Calculated R [place] -27 degrees MUSE SYSTEM Calculated T [place] 104 degrees MUSE SYSTEM INTERPRETATION Normal sinus rhythm MUSE SYSTEM Anterolateral infarct (cited on or before 09-DEC-2021) Abnormal ECG When compared with ECG of 10-DEC-2021 11:17, No significant change was found Confirmed by Gary Perez ([id number]) on 01/30/2022 5:57:5 2 PM Specimen Anatomical Collection Method Collection Time Receive d Time (Source) Location / / Volume Laterality 01/30/2022 10:33 01/30/2022 5:57 AM EDT PM EDT Vitaliy Nobles MD ECG ORDERABLES Performing Organization Address City/[facility]/ZIP Code Phon e Number MUSE SYSTEM CARDIAC CATHETERIZATION (01/30/2022 10:16 AM EDT) Specimen (Source) Anatomical Location Collection Method / Collectio n Time Received Time / Laterality Volume Narrative CARDIOMAC SYSTEM - 01/30/2022 2:09 PM ED T ?[facility] ? Cardiac Cathete rization/Intervention Report ? Patient Name: Don Fatima. ? Procedure Date: 01/30/2022 ? A #: [id number] ? Primary Physician: Vitaliy Nobles ? Case #: [id number] ? File Name: [id number] ? Catheterization Order Number: [id number] ? [facility] ? Final Report [place], [place] ? Patient Name: ? Don E. Stewa rt ? ID#: ?[id number] ? : ?1945 ? Procedure Date: ? [...] ?designated as ASA Class III. Th e [facility] clinical frailty scale is 5: Mildly [...] was Urgent. The indication for ?the dental lab technician visit is stable kn own CAD. Chest pain symptom assessment ?was: Typical Angina. ? Technique: ?A 6 SLFr sheath was inserted in the right radial artery utilizing the ?Seldinger technique. The right coronary artery was injected utilizing a ?IR 2.0 catheter. Coronary stent insertion was performed and the equipment ?utilized will be described in [facility] intervention summary section. 9,000 ?units of [...] guiding catheter an d a 3.5 Fr [facility] [place] [address] ??20 Mhz ?using Manual pullback. ??Imagin [...] A premounted 2.00 x 26 mm Hardeep [place] (TUCKER) ? was deployed wi a maximum [...] Wedelivered along 2.0 x 26 mm HARDEEP [place] ? TUCKER stent and p ositioned it [...] administered prior to arrival in the dental lab technician. ?Recommended anti-platelet/anti- thrombotic regimen: ?Continue [...] using a 2.0 x 26 mm HAR[place]EP [place] TUCKER stent. ?This completes the revasculariz ation [...] Procedure Note Vitaliy Nobles MD - 03/06/2022 [facility] Cardiac Catheterization/Intervention Re port Patient Name: Don Fatima Procedure Date: 01/30/2022 A #: [id number] Primary Physician: Vitaliy Nobles Case #: [id number] File Name: [id number] Catheterization Order Number: [id number] [facility] Final Report [place], [place] Patient Name: Don Fatima ID#: [...] e was Urgent. The indication for the dental lab technician visit is stable known CAD. Chest pain [...] 1.5 guiding catheter and a 3.5 [address] [facility] [address] [place] [address] 20 Mhz using Manual pullback. Imaging [...] atmospheres. A premounted 2.00 x 26 mm [place] (TUCKER) was deployed with a maximum inflation [...] along 2. 0 x 26 mm HARDEEP [place] TUCKER stent and positioned it at the [...] administered prior t o arrival in the dental lab technician. Recommended anti-platelet/anti-thrombot ic regimen: Continue aspirin 81 [...] require modification of this regimen. Consult D [facility] Interventional Cardiology for questions. The 1 year [...] using a 2.0 x 26 mm HARDEEP [place] TUCKER stent. This completes the revascularization of [...] Glucose 212 (H) 65 - 199 [facility]/dL [facility] Comment: Supplemental ranges: <140 mg/dL before meals <180 mg/dL all other times of the day Specimen Anatomical Collection Method Collection Time Receive d Time (Source) Location / / Volume Laterality Blood 01/30/2022 9:04 AM 2 9:04 EDT AM EDT Vitaliy Nobles MD POINT OF CARE TEST ORDERABLE S Performing Organization Address City/State/Z[place] [address] (ABNORMAL) POCT Glucose (01/30/2022 8:10 AM EDT) athologist Signature POC Glucose 224 (H) 65 - 199 [facility] mg/dL [facility] Comment: Supplemental ranges: <140 [...] [facility]/ZIP [place] [address] documented in this encounter Visit Diagnoses Diagnosis ASCVD (arteriosclerotic cardiovascular d isease) Unspecified cardiovascular disease Atherosclerosis of marshall coronary arter y of marshall heart with angina pectoris with documented spasm ASHD (arteriosclerotic heart disease) Coronary atherosclerosis of unspecified type of vessel, marshall or graft ASCVD (arteriosclerotic cardiovascular d isease) Unspecified cardiovascular disease documented in this encounter Admitting Diagnoses Diagnosis CAD (coronary artery disease) Coronary atherosclerosis of unspecified type of vessel, marshall or graft documented in this encounter Administered [...] Wed01/30/22 at 1039, Until Wed at 1045, ISAELMADDISON Vishal: gita override clopidogreL (Plavix) tablet 600 mg [...] Given 02/2022 10:11 AM EDT 100 mcg (EYEDOTTER) ONCE PRN, Starting on Wed01/30/22 at 0927, [...] infusion 10 15 (Continued Bag - Provider: Mdadison Farmer RN) 50 mL/hr, Intravenous, CONTINUOUS, Start [...] Katerin Kay RN)0923 (Given - Provider: Katerin Kay, VAMSI) ONCE PRN, Starting on Wed01/30/22 at 0855 [...] Procedure), Routine niCARdipine (Cardene) (100 mcg/mL) dilution (EYEDOTTER) (CANCELED ) 0927 (Given - Provider: Vitaliy [...] (Intra-Procedure) documented in this encounter Care Teams Animal Warden Relationship Specialty Start Date End Date Lovely Vicente MD PCP - General 04/16/[address] [place] [address] documented as of this encounter
--- OUTSIDE RECORDS SUMMARY | 2022-03-11 11:24 | XMS_ITS | Encounter Summary ---
:1945 [place] [address] Care Team Providers Name Role Phone Lovely Vicente MD Primary Care Provider Encounter Details Date Type Department Care Team Description 12/24/2021 Orders Only Transfusion Nurse Zulma Finch ASCVD (art eriosclerotic [facility] cardiovascular disease) [facility] [place] [address] [place], [place] [phone] (Work) [phone] Social History Tobacco Use Types Packs/Day Years [...] Vitaliy Nobles MD [facility] [address] [place] [address] (Wo rk) 05/28/2022 Appointment Cardiology Zulma Dolan MD [facility] [address] [place] [address] (Wo rk) 05/28/2022 Laboratory Appointment Lab 05/28/2022 Office Visit Cardiology Zulma Dolan MD [facility] [place] [address] Liz Poole PA [facility] [place] [address] 06/10/2022 Office Visit Dermatology Laura Scherer MD [facility] ER DR [address]MAT [place], [place] 0[address] (Wo rk) documented as of this encounter Visit Diagnoses Diagnosis ASCVD (arteriosclerotic cardiovascular d isease) Unspecified cardiovascular disease documented in this encounter Care Teams Store Sales Manager Relationship Specialty Start Date End Date Lovely Vicente MD PCP - General 04/16/[address] [place] [address] documented as of this encounter
--- OUTSIDE RECORDS SUMMARY | 2022-03-11 11:25 | XMS_ITS | Encounter Summary ---
:1945 Author Organization [place] [address] Care Team Providers Name Role Phone Lovely Vicente MD Primary Care Provider Encounter Details Date Type Department Care Team Description 03/20/2021 Ancillary Procedure Radiology Library [place] [address] [place] [address] [phone] Social History Tobacco Use Types Packs/Day Years [...] MD [facility] [address] [place] [place], [place] [address] (Wo rk) 05/28/2022 Appointment Cardiology Zulma Dolan MD [facility] [address] [place], [place] [address] (Wo rk) 05/28/2022 Laboratory Appointment Lab 05/28/2022 Office Visit Cardiology Zluma Dolan MD [facility] [place] [address] Liz Poole PA [facility] [place] [address] 06/10/2022 Office Visit Dermatology Laura Scherer MD [facility] ER DR [address]DERMAT [place], [place] 0375 (Wo rk) documented as of [...] / Laterality Volume Narrative RAD - 03/20/2021 5:23 PM EDT This exam is auto-finalizing. It's purpo se is for storage only. Hugo Gaston MD IMG FILM LIBRARY ORDERABLES Performing Organization Address City/State/ZIP Code Phon e Number [place], [place] documented in this encounter Visit Diagnoses Not on filedocumented in this encounter Care Teams Shaping Machine Operator Relationship Specialty Start Date End Date Lovely Vicente MD PCP - General 04/16/[address] [place] [address] documented as of this encounter
--- OUTSIDE RECORDS SUMMARY | 2022-03-11 11:25 | XMS_ITS | Encounter Summary ---
:1945 Author Organization [facility] [place] [address] Care Team Providers Name Role Phone Lovely Vicente MD Primary Care Provider Encounter Details Date Type Department Care Team Description 03/20/2021 Ancillary Procedure Radiology Library [place] [address] [place] [address] [phone] Social History Tobacco Use Types Packs/Day Years [...] Vitaliy Nobles MD [facility] [address] [place] [place], [place] [address] (Wo rk) 05/28/2022 Appointment Cardiology Zulma Dolan MD [facility] [address] [place], [place] [address] (Wo rk) 05/28/2022 Laboratory Appointment Lab 05/28/2022 Office Visit Cardiology Zulma Dolan MD [facility] [place] [address] Liz Poole PA [facility] [place] [address] 06/10/2022 Office Visit Dermatology Laura Scherer MD [facility] ER DR [address]-DERMAT [place], [place] [address] (Wo rk) documented as of [...] Laterality Volume Narrative DH RAD - 03/20/2021 5:24 PM EDT This exam is auto-finalizing. It's purpo se is for storage only. Hugo Gaston MD IMG FILM LIBRARY ORDERABLES Performing Organization Address City/State/ZIP Code Phon e Number RAD [place], [place] documented in this encounter Visit Diagnoses Not on filedocumented in this encounter Care Teams Sweatband Shaper Relationship Specialty Start Date End Date Lovely Vicente MD PCP - General 04/16/[address] [place] [address] documented as of this encounter
--- OUTSIDE RECORDS SUMMARY | 2022-03-11 11:25 | XMS_ITS | Encounter Summary ---
:1945 [place] [address] Care Team Providers Name Role Phone Lovely Vicente MD Primary Care Provider Reason for Visit Reason Comments Skin Cancer Examination Encounter Details Date Type Department Care Team Description 03/20/2021 Office Visit Dermatology at [facility] Brennen Rene MD History of melanoma; [facility] History of dysplastic nevus; [address] Multiple benign nevi; [place] [address] [facility] SK (seborrheic keratosis); [phone] [address]-DERMATOLOGY [place] (actinic keratosis) [place], [place] [address] Social History Tobacco Use Types [...] no SOCIAL HISTORY 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 [facility] visit at [facility] Derm: 01/02/2020 Medications: Reviewed in eD-H [...] FSE; history of Melanoma []Note routed to construction secretary [x]Recall has been placed in scheduling system []Appointment scheduled at checkout Scribe attestation: Yoana Pang LPN has performed the documentation for this encounter in the presence of and acting as a scribe for LAURA RENE MD I performed the above scribed service and agree with the accuracy of the documentation in this encounter. Reviewed and signed by: LAURA RENE MD Dermatology [facility] documented in this encounter Plan of Treatment Upcoming Encounters Date Type Specialty Care Team Description 03/26/2022 Office Visit Cardiology Vitaliy Nobles MD [facility] CARDIOLOGY [place], [place] [address] (Wo rk) 05/28/2022 Appointment Cardiology Zulma Dolan MD [facility] [place], [place] [address] (Wo rk) 05/28/2022 Laboratory Appointment Lab 05/28/2022 Office Visit Cardiology Zulma Dolan MD [facility] [place] [address] Liz Poole PA [facility] [place] [address] 06/10/2022 Office Visit Dermatology Laura Rene MD [facility] DR TEJA GR-DERMAT [place], [place] [address] (Wo rk) documented as [...] keratosis documented in this encounter Care Teams Housing Quality Standard Inspector Relationship Specialty Start Date End Date Lovely Vicente MD PCP - General 04/16/15 [facility] [address] [place] [address] documented as of this encounter
--- OUTSIDE RECORDS SUMMARY | 2022-03-11 11:25 | XMS_ITS | Encounter Summary ---
:1945 [place] [address] Care Team Providers Name Role Phone Lovely Vicente MD Primary Care Provider Encounter Details Date Type Department Care Team Description 04/16/2021 Office Visit Cardiology at [facility] Liz Poole, Chronic systolic heart [facility] [place] [address] Cardiology Dept [phone] [place], [place] [address] Social History Tobacco Use Types [...] was feeling good. 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 07/07/2019 - 07/21/2019 Zio Patch Deli Slicer The patient had a minimum heart rate [...] K+ 5.2 today 6. Post-op atrial fibrillation [id number] (CHF, HTN, DM, vascular disease, thromboembolism) On warfarin - recent labile INR Will discuss with PCP, option of [place]hel 7. PAD 08/06/2017: Right 1st, 2nd, 3rd toe amputation 08/11/2017: Left??femoral arterial access, RLE??angiogram, Balloon angioplasty of R PT 10/25/2017: right popliteal-pedal bypass at [facility] 8. Hypothyrodism S/p thyroidectomy for goiter Continue [...] Nobles MD [facility] CARDIOLOGY [place], [place] 0[address] (Wo rk) 05/28/2022 Appointment Cardiology Zulma Dolan MD [facility] [place], [place] 0[address] (Wo rk) 05/28/2022 Laboratory Appointment Lab 05/28/2022 Office Visit Cardiology Zulma Dolan MD [facility] [place] [address] Liz Poole PA [facility] [place] [address] 06/10/2022 Office Visit Dermatology Laura Scherer MD [facility] DR TEJA GR-DERMAT [place], [place] 0[address] (Wo rk) documented as of this encounter Results (ABNORMAL) Basic Metabolic Panel (non-fasting) (04/16/2021 9:58 AM EDT) athologist Signature Glucose Lvl 77 65 - 199 [facility] mg/dL [facility] Comment: Diabetes: >=200 mg/dL plus symp toms BUN 23 (H) 10 - 20 mg/dL [facility] Creatinine 1.26 0.80 - 1.50 mg/dL [facility] [...] Anion Gap 9 5 - 15 mmol/L [place] [...] Organization Address City/State/[place] [address] (ABNORMAL) pro-Brain Natriuretic Peptide (04/16/2021 9:58 AM EDT) P athologist Signature ProBNP 523 (H) <=124 pg/mL [facility] Specimen Anatomical Collection Method Collection Time Receive d Time (Source) Location / / Volume Laterality Blood 04/16/2021 9:58 AM EDT 10:02 AM EDT Resulting Agency Comment Spec In Lab Zulma Plunkett MD CHEMISTRY ORDERABLES Performing Organization Address City/[facility]/[place] [address] documented in this encounter Visit Diagnoses Diagnosis Chronic systolic heart failure documented in this encounter Care Teams Incident Response Specialist Relationship Specialty Start Date End Date Lovely Vicente MD PCP - General 04/16/[address] [place] [address] documented as of this encounter
--- OUTSIDE RECORDS SUMMARY | 2022-03-11 11:25 | XMS_ITS | Encounter Summary ---
:1945 Author Organization [place] [address] Care Team Providers Name Role Phone Lovely Vicente MD Primary Care Provider Encounter Details Date Type Department Care Team Description 12/07/2021 Ancillary Procedure Rad[facility] Lovely murillo MD [facility] [id number] [place] [address] (Mikayla alcaraz) [address] [phone] Social History Tobacco Use Types Packs/Day Years [...] Cardiology Vitaliy Nobles MD [facility] ER [address] [place] 0[address] (Wo rk) 05/28/2022 Appointment Cardiology Zulma Dolan MD [facility] er [address] [place] 0[address] (Wo rk) 05/28/2022 Laboratory Appointment Lab 05/28/2022 Office Visit Cardiology Zulma Dolan MD [facility] [place] [place] [address] Liz Poole PA [facility] [place] [address] 06/10/2022 Office Visit Dermatology Laura Scherer MD [facility] ER DR LEZAMA RD-DERMAT [facility] [place] [address] (Wo rk) documented as [...] Address City/State/ZIP Code Phon e Number RAD [place], [place] documented in this encounter Visit Diagnoses Not on filedocumented in this encounter Care Teams Mexican Food Cook Relationship Specialty Start Date End Date Lovely Vicente MD PCP - General 04/16/[address] [place] [address] documented as of this encounter
--- OUTSIDE RECORDS SUMMARY | 2022-03-11 11:25 | XMS_ITS | Encounter Summary ---
:1945 Author Organization [facility] [place] [address] Care Team Providers Name Role Phone Lovely Vicente MD Primary Care Provider Encounter Details Date Type Department Care Team Description 03/20/2021 Ancillary Procedure Radiology Library at [place] [address] [place] [address] [phone] Social History Tobacco Use Types Packs/Day Years [...] MD [facility] DR TADEO [place], [place] [address] (Wo rk) 05/28/2022 Appointment Cardiology Zulma Dolan MD [facility] [place], [place] [address] (Wo rk) 05/28/2022 Laboratory Appointment Lab 05/28/2022 Office Visit Cardiology Zulma Dolan MD [facility] [place] [address] Liz Poole PA [facility] [place] [address] 06/10/2022 Office Visit Dermatology Laura Scherer MD [facility] DR [address]ZAMA [address]-DERMAT [place], [place] [address] (Wo rk) documented as of [...] Organization Address City/State/ZIP Code Phon e Number [place], [place] documented in this encounter Visit Diagnoses Not on filedocumented in this encounter Care Teams Monotype Mechanic Relationship Specialty Start Date End Date Lovely Vicente MD PCP - General 04/16/[address] [place] [address] documented as of this encounter
--- OUTSIDE RECORDS SUMMARY | 2022-03-11 11:25 | XMS_ITS | Encounter Summary ---
:1945 Author Organization [place] [address] Care Team Providers Name Role Phone Lovely Vicente MD Primary Care Provider Reason for Visit Reason Comments Establish Care Atrial Fibrillation Congestive Heart Failure Cardiomyopathy Encounter Details Date Type Department Care Team Description 09/06/2019 [facility] Ischemic cardiomyopathy Osvaldo STRANGE [address] [facility] [address] Riley, [place] CARDIOLOGY DEPT. [address] [place] [address] [phone] Social History Tobacco Use Types Packs/Day Years [...] in this encounter Patient Instructions Patient InstructionsKarel Gonzalez MD - 09/06/2019 2:20 PM EST Images from the original note were not included. It was nice to see you in the Cardiac Electrophysiology Clinic today. We discussed the heart failure, the echo, the zio patch monitor You should continue with your medicines as before I made no changes to your medicines today For any questions, call my office: [phone] To access your health care information, go to the web at: [email or web address] (you will need to register) For educational materials: [email or web address] Karel TRAMMELL.[facility], Clinical Cardiac Electrophysiology, [facility], [facility] A Healthy Heart: After Your Visit [...] least 2 servings of fish a week. [place], mackerel, mcfadden, sardines, and chunk light tuna [...] irregular heartbeat. After you call 911, the boiler assistant operator may tell you to chew 1 [...] more? Visit our health information library at [email or web address] [email or web address]. You can also view health information on [employer], your personal patient account. Log in or sign up today. Enter F075 in the search box to learn more about A Healthy Heart: After Your Visit. ?? [phone] [employer] documented in this encounter Progress Notes Karel Gonzalez MD - 09/06/2019 2:20 PM EST Images from the original note were not included. Section of Cardiology/Cardiac Electrophysiology [facility] Clinical Cardiac Electrophysiology Consult Patient ID Don Fatima 1945 [id number] Don Fatima is referred to the EP clinic by Danette Maxwell APRN PhD Chief Complaint Dyspnea on exertion Ischemic cardiomyopathy History This is a 74 y.o. male following up/being seen in clinic for evaluation for ongoing anticoagulation. He has a Bnnxv4Gywn score of ~ 6-7. 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, is able to snow blow, can walk [...] on phone: None Gets together: None Attends cheondoism service: None Active member of club or [...] up planned in the EP clinic KAREL GONZALEZ MD Cardiac Electrophysiology [facility] T: [phone] F: [phone] 35 minutes of this 40 minute encounter were spent in counselling, as described above Cc: MD Danette Cr APRN PhD Janett Espino DPM documented in this encounter Plan of Treatment Upcoming Encounters Date Type Specialty Care Team Description 03/26/2022 Office Visit Cardiology Vitaliy Nobles MD [facility] [address] T[address] [place], [place] [address] (Wo rk) 05/28/2022 Appointment Cardiology Zulma Dolan MD [facility] [place], [place] [address] (Wo rk) 05/28/2022 Laboratory Appointment Lab 05/28/2022 Office Visit Cardiology Zulma Dolan MD [facility] [place] [address] Liz Poole PA [facility] [place] [address] 06/10/2022 Office Visit Dermatology Laura Scherer MD [facility] DR [address]-DERMAT OLOG[place], [place] 0[address] (Wo rk) documented as of [...] 446 ms MUSE SYSTEM (Bezet) Calculated P Newton 37 degrees MUSE SYSTEM Calculated R Newton -23 degrees MUSE SYSTEM Calculated T Newton 116 degrees MUSE SYSTEM INTERPRETATION Normal sinus rhythm MUSE SYSTEM Inferior infarct (cited on or before 25-JAN-2013) ST & T wave abnormality, consider anterolateral ischemia Abnormal ECG When compared with ECG of 19-AUG-2017 10:23, No significant change was found Confirmed by MD Castellon Daniel ([id number]) on 09/08/2019 10:22:4 7 AM Specimen Anatomical [...] disease documented in this encounter Care Teams Starcher And Tenter Range Feeder Relationship Specialty Start Date End Date Lovely Vicente MD PCP - General 04/16/[address] [place] [address] documented as of this encounter
--- OUTSIDE RECORDS SUMMARY | 2022-03-11 11:25 | XMS_ITS | Encounter Summary ---
:1945 [place] [address] Care Team Providers Name Role Phone Lovely Vicente MD Primary Care Provider Encounter Details Date Type Department Care Team Description 03/20/2021 Telephone Neurology at [facility] Hugo Gaston MD [facility] [place] [address] [place] [address] [phone] (Wo rk) Social History Tobacco Use Types [...] - 03/20/2021 6:[address]T Call from [facility]. 76 M with h/o DM. CABG, [...] Gaston MD Department of Neurology Pager # [phone] documented in this encounter Plan of Treatment Upcoming Encounters Date Type Specialty Care Team Description 03/26/2022 Office Visit Cardiology Vitaliy Nobles MD [facility] DR TADEO [place], [place] [address] (Wo rk) 05/28/2022 Appointment Cardiology Zulma Dolan MD [facility] Dr [place], [place] [address] (Wo rk) 05/28/2022 Laboratory Appointment Lab 05/28/2022 Office Visit Cardiology Zulma Dolan MD [facility] [place] [address] Liz Poole PA [facility] [place] [address] 06/10/2022 Office Visit Dermatology Laura Scherer MD [facility] DR TEJA GR-DERMAT [place], [place] [address] (Wo rk) documented as of this encounter Visit Diagnoses Not on filedocumented in this encounter Care Teams Candy Decorator Relationship Specialty Start Date End Date Lovely Vicente MD PCP - General 04/16/[address] [place] [address] documented as of this encounter
--- OUTSIDE RECORDS SUMMARY | 2022-03-11 11:25 | XMS_ITS | Encounter Summary ---
:1945 Author Organization [facility] [place] [address] Care Team Providers Name Role Phone Lovely Vicente MD Primary Care Provider Encounter Details Date Type Department Care Team Description 11/07/2019 TH Visit Cardiology at [facility] Danette Maxwell (arteriosclerotic heart disease); (TeleHealth) [facility] STACIE Gomes Cardiomyopathy, ischemic; Drive [facility] S/P CABG x 3; [place], [place] MARIA VICTORIA (obstructive sleep apnea) on CPAP [phone] CARDIOLOGY [phone] [place], [place] [address] Social History Tobacco Use Types [...] regurgitation present. 07/07/2019 - 07/21/2019 Zio Patch Picture Frames Inspector The patient had a minimum heart [...] at last check 6. Post-op atrial fibrillation [id number] (CHF, HTN, DM, vascular disease, thromboembolism) Amiodarone discontinued Continue coumadin INR managed by PCP 7. PAD 08/06/2017: Right 1st, 2nd, 3rd toe amputation 08/11/2017: Left??femoral arterial access, RLE??angiogram, Balloon angioplasty of R PT with Eleazar 2.5 x 80 10/25/2017: right popliteal-pedal bypass at [facility] Continue Coumadin 8. Hypothyrodism S/p thyroidectomy [...] Nobles MD [facility] CARDIOLOGY [place], [place] 0[address] (Wo rk) 05/28/2022 Appointment Cardiology Zulma Dolan MD [facility] [place], [place] [address] (Wo rk) 05/28/2022 Laboratory Appointment Lab 05/28/2022 Office Visit Cardiology Zulma Dolan MD [facility] [place] [address] Liz Poole PA [facility] [place] [address] 06/10/2022 Office Visit Dermatology Laura Scherer MD [facility] DR TEJA GR-DERMAT [place], [place] 0[address] (Wo rk) documented as of this encounter Visit Diagnoses Diagnosis ASHD (arteriosclerotic heart disease) Coronary atherosclerosis of unspecified type of vessel, iroquois or graft Cardiomyopathy, ischemic Other specified forms of chronic ischemi c heart disease S/P CABG x 3 Postsurgical aortocoronary bypass status MARIA VICTORIA (obstructive sleep apnea) on CPAP Obstructive sleep apnea (adult) (pediatr ic) documented in this encounter Care Teams Bottom Wheeler Relationship Specialty Start Date End Date Lovely Vicente MD PCP - General 04/16/[address] [place] [address] documented as of this encounter
--- OUTSIDE RECORDS SUMMARY | 2022-03-11 11:25 | XMS_ITS | Encounter Summary ---
:1945 Author Organization [facility] [place] [address] Care Team Providers Name Role Phone Lovely Vicente MD Primary Care Provider Encounter Details Date Type Department Care Team Description 12/07/2021 Telephone Cardiology Eddi Briceño Jr., [facility] [place] [address] [facility] [phone] CARDIOLOGY DEPT [place], [place] [address] (Wo rk) Social History Tobacco [...] [facility] Referring Provider: Marisela Dean, FILTERER [address] [place] [address] Don Veda Kushal 76 y.o. w / [...] bpm, LAFB, poor R wave progression, septal WI, and lateral STD, overall no significantchange from [...] Cardiology Vitaliy Nobles MD [facility] [address] [place] [address] (Mikayla alcaraz) 05/28/2022 Appointment Cardiology Zulma Dolan MD [facility] [address] [place] [address] (Wo rk) 05/28/2022 Laboratory Appointment Lab 05/28/2022 Office Visit Cardiology Zulma Dolan MD [facility] [place] [address] Liz Poole PA [facility] [place] [address] 06/10/2022 Office Visit Dermatology Laura Scherer MD [facility] ER DR TEJA GR-DERMAT [place], [place] [address] (Wo rk) documented as of this encounter Visit Diagnoses Not on filedocumented in this encounter Care Teams Property Loss Insurance Claim Adjuster Relationship Specialty Start Date End Date Lovely Vicente MD PCP - General 04/16/[address] [place], [place] [address] documented as of this encounter
--- OUTSIDE RECORDS SUMMARY | 2022-03-11 11:25 | XMS_ITS | Encounter Summary ---
:1945 Author Organization [facility] [place] [address] Care Team Providers Name Role Phone Lovely Vicente MD Primary Care Provider Encounter Details Date Type Department Care Team Description 04/16/2021 Laboratory Appointment Lab 3L [facility] [place] [id number] Social History Tobacco Use Types Packs/Day Years [...] Nobles MD [facility] DR TADE[address] [place], [place] [address] (Wo rk) 05/28/2022 Appointment Cardiology Zulma Dolan MD [facility] [address] [place] [address] (Wo rk) 05/28/2022 Laboratory Appointment Lab 05/28/2022 Office Visit Cardiology Zulma Dolan MD [facility] [place] [address] Liz Poole PA [facility] [place] [address] 06/10/2022 Office Visit Dermatology Laura Scherer MD [facility] ER DR LEZ[address] RD-DERMAT [place], [place] 0[address] (Wo rk) documented as [...] City/State/[place] [address] (ABNORMAL) Basic Metabolic Panel (non-fasting) (04/16/2021 9:58 AM EDT) athologist Signature Glucose Lvl 77 65 - 199 [facility] mg/dL [facility] Comment: Diabetes: >=200 mg/dL plus symp toms BUN 23 (H) 10 - 20 mg/dL [facility] Creatinine 1.26 0.80 - 1.50 [...] Anion Gap 9 5 - 15 mmol/L [facility] Calcium 9.3 8.5 - 10.5 [...] City/State/[place] [address] documented in this encounter Visit Diagnoses Diagnosis Chronic systolic heart failure documented in this encounter Care Teams Property Adjuster Relationship Specialty Start Date End Date Lovely Vicente MD PCP - General 04/16/[address] [place] [address] documented as of this encounter
--- OUTSIDE RECORDS SUMMARY | 2022-03-11 11:25 | XMS_ITS | Encounter Summary ---
:1945 Author Organization [place] [address] Care Team Providers Name Role Phone Lovely Vicente MD Primary Care Provider Reason for Visit Auth/Cert Specialty Diagnoses / Procedures Referred By Contact Refer red To Contact Diagnoses NSTEMI Procedures emerg ipi Referral ID Status Reason Start Date Expiration Date Visits Requ ested Visits Authorized [id number] 1 1 Encounter Details Date Type Department Care Team Description 12/10/2021 Surgery Hot Tar Roofer Helper Asa Coulter MD CARDIAC CATHETERIZATION [facility] [place] [address] [place] [address] [phone] (Wo rk) Social History Tobacco Use Types [...] Don Fatima Patient Age: 76 y.o. Language: Italian Race: White Ethnicity: Not nor Admit date: [...] Peter PA-C Kelly LaFlamme PA-C Cardiovascular Medicine [phone] Discharge Diagnoses (Hospital Problems) and Secondary Diagnoses [...] 3.75 guiding catheter and a 3.5 Fr [facility] 20 Mhz using Manual pullback. Imaging was successful. Image quality was good. The ostial LCX showed moderate diffuse atherosclerotic plaque with scattered three quadrant calcification. Measurements were performed after pre-dilation. Post Intervention: The stent was well expanded and apposed. Intravascular Ultrasound was performed in the distal LM using a 7 Fr EBU 3.75 guiding catheter and a 3.5 Fr [facility] 20 Mhz using Manual pullback. Imaging was successful. Image quality was good. The distal LM showed moderate diffuse atherosclerotic plaque. Post Intervention: The stent was well expanded and apposed. Indication for Intervention: Coronary intervention was indicated for primary therapy for an acute myocardial infarction. The priority for the procedure was Urgent. The [facility] indication for the procedure was NSTE-ACS. [...] modification of this regimen. Consult [facility] Interventional Cardiology for questions. The 1 year [...] vascular congestion and cardiomegaly. ?? TTE from [facility] 12/08/21 ? Prior Cardiac [...] prior thyroidectomy in 2012 who presented to [facility] with 1 week progressing [...] 03/2021 with Liz Poole PA-C. ?? At [facility], respiratory [...] and diet drinks did not cause his NM. This is what his thought was the [...] appointments: During 8am-5pm Wednesday through Wednesday call [phone] to speak with a nurse in the cardiology clinic All other times call [phone] and ask to speak to the cardiology tech commercial drone software developer. Return to work: One week Driving: No driving for 48 hours after catheterization. Follow up Appointments: PCP Lovely Vicente MD [phone] to see patient at the end of December for annual check up. Patient to see Dr. Lorenzana at 1120 am at December 19 for a post hospital check up. Insulation Technician Dr. De Oliveira to see you in [facility]. Left a message for office to set a date and time. Please call [phone] Nobles to see the patient for a same day cath in 2-3 weeks from now. Office to call with a date and time. For questions please call [phone] Home oxygen therapy: N/A Arrangements for VNA/home care: none Future Appointments and Orders Future Orders Complete By Expires Basic Metabolic Panel (non-fasting) [LAB15 Custom] 12/19/2021 (Approximate) 12/12/2022 Process Instructions: INCLUDES: Calcium, BUN, Creat, GFR, Glucose, Lytes Scheduling Instructions: Comments: Questions: Referral to Cardiac Rehab [[id number] Custom] As directed Process Instructions: If no [...] appointments: During 8am-5pm Wednesday through Wednesday call [phone] to speak with a nurse in the cardiology clinic All other times call [phone] and ask to speak to the cardiology tech commercial drone software developer. Return to work: One week Driving: No driving for 48 hours after catheterization. Follow up Appointments: PCP Lovely Vicente MD [phone] to see patient at the end of December for annual check up. Patient to see Dr. Lorenzana at 1120 am at December 19 for a post hospital check up. Insulation Technician Dr. De Oliveira to see you in [facility]. Left a message for office to set a date and time. Please call [phone] Nobles to see the patient for a same day cath in 2-3 weeks from now. Office to call with a date and time. For questions please call [phone] Home oxygen therapy: N/A Arrangements for VNA/home [...] Progress Note Patient Name: Don Fatima Service: TANGLED YARN SPOOL STRAIGHTENER / PA Responsible Attending: Ifeanyi Truong MD [...] given Lasix 80mg IV x1 in label paster. Tolerated procedure well. Home today at 11 [...] pulmonary vascular congestion and cardiomegaly. TTE from [facility] 12/08/21 Prior Cardiac Studies: [...] A1c 6.2% S/p R/LHC as noted above, TUCEKR to ostial LCX Home today, will have [...] with MD Janneth Neville PA 12/12/2021 Pager [phone] Associated attestation - Ifeanyi Truong MD - [...] each meal) Desirae Jett APRN [facility] Endocrinology Diabetes Management Pager [phone] 20 minutes of this 35 minute visit [...] Progress Note Patient Name: Don Fatima Service: TANGLED YARN SPOOL STRAIGHTENER / PA Responsible Attending: Iker Cuevas MD [...] + trop. 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 DM. MARIA VICTORIA.ICM. ??? ASHD [...] given Lasix 80mg IV x1 in label paster. Tolerated procedure well. Review of Systems: Review [...] Intake/Output Summary (Last 24 hours) at 12/11/2021 0906 Last data filed at 12/11/2021 0508 Gross [...] pulmonary vascular congestion and cardiomegaly. TTE from [facility] 12/08/21 Prior Cardiac Studies: [...] to by phone and answered his questions. Iekr Cuevas MD [facility] Total time spent on review of records prior to visit, face to face time with patient during visit, documentation, and coordination of care with other clinicians: 25 minutes. . Iker Cuevas MD - 12/10/2021 12:30 PM EDT Images from the original note were not included. Inpatient Cardiology Progress Note Patient Name: Don Fatima Service: TANGLED YARN SPOOL STRAIGHTENER / PA Responsible Attending: Iker Cuevas MD Reason for continued hospitalization: NSTEMI- s/p R/LHC- PCW 27, occluded SVGs s/p PCI to ostial LCX ADHF and hypoxia- IV diuresis Active Problems: Active Hospital Problems Diagnosis ??? Admitted with 2 days of sob, hypoxemia, and + trop. 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 DM. MARIA VICTORIA.ICM. ??? ASHD [...] given Lasix 80mg IV x1 in label paster. Tolerated procedure well. Review of Systems: Review [...] pulmonary vascular congestion and cardiomegaly. TTE from [facility] 12/08/21 Prior Cardiac Studies: [...] Discussed with MD Migdalia Peter PA-C Pager #[phone] 12/10/2021 Cardiology Attending Note I have seen [...] updated and given pictures. Iker Cuevas MD [facility] Total time spent on review of records prior to visit, face to face time with patient during visit, documentation, and coordination of care with other clinicians: 35 minutes. Iker Cuevas MD - 12/09/2021 7:28 AM EDT Images from the original note were not included. Inpatient Cardiology Progress Note Patient Name: Don Fatima Service: TANGLED YARN SPOOL STRAIGHTENER / PA Responsible Attending: Iker Cuevas MD Reason for continued hospitalization: NSTEMI- awaiting R/LHC ADHF and hypoxia- IV diuresis, R/LHC Active Problems: Active Hospital Problems Diagnosis ??? Admitted with 2 days of sob, hypoxemia, and + trop. 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 DM. MARIA VICTORIA.ICM. ??? ASHD [...] pulmonary vascular congestion and cardiomegaly. TTE from [facility] 12/08/21 Prior Cardiac Studies: [...] Discussed with MD Migdalia Peter PA-C Pager #[phone] 12/09/2021 Cardiology Attending Note I have seen and examined the patient. I agree with the findings above. Developed CHF early this am despite getting more iv lasix last evening. Feeling better now. INR > 2. Lungs still wet at base. Echo at [facility] showed EF 35% with mild mod MR slightly lower than last value here. -vit K 2.5 orally to facilitate correction of INR- this will take 12-24 hours to take effect -furosemide 80 mg iv now -postpone right and left heart cath until tomorrow given INR and ADHF -increase statin to achieve LDL < 70 -CPAP tonight Iker Cuevas MD [facility] Total time spent on review of records [...] + trop. 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 DM. MARIA VICTORIA.ICM. ??? ASHD [...] prior thyroidectomy in 2012 who presented to [facility] with 1 week progressing [...] visit 03/2021 with Liz Poole PA-C. At [facility], respiratory [...] SETUP performed by Manny Mcknight MD at [facility] MAIN OR ??? PRO AMPUTATION FOOT, TRANSMETATARSAL Right 08/09/2017 AMPUTATION, TRANSMETATARSAL (WRVU 12.71) performed by Yonathan Smith MD at [facility] MAIN OR ??? PRO CABG, ARTERIAL, SINGLE N/A 07/07/2017 @CABG, USING ARTERIAL GRAFT;SINGLE ARTERIAL GRAFT (WRVU 33.75) performed by Yuan Retana MD at [facility] MAIN OR ??? PRO CABG, ARTERY-VEIN, TWO N/A 07/07/2017 @CABG, TWO VENOUS GRAFTS & ARTERIAL GRAFT (WRVU 7.93) performed by Yuan Retana MD at [facility] MAIN OR ??? PRO COLONOSCOPY, REMV LESN, SNARE 01/16/2014 COLONOSCOPY, POLYPECTOMY, REMOVAL LESION BY SNARE performed by Nohemi Jaimes MD at [facility] ENDOSCOPY ??? PRO DRESSING CHANGE UNDER ANESTHESIA Right 08/11/2017 (MSURG) DRESSING CHANGE (FOR OTHER THAN IVAN) UNDER ANES. (WRVU 0.86) performed by Lamar Smith MD at [facility] MAIN OR ??? PRO ENDOSCOPY W/VIDEO-ASST VEIN HARVEST, CABG Right 07/07/2017 ENDOSCOPIC HARVEST VEIN(S) FOR CABG (WRVU 0.31) performed by Yuan Retana MD at [facility] MAIN OR ??? PRO THYROIDECTOMY 03/28/2013 THYROIDECTOMY, TOTAL OR COMPLETE performed by Manny Mcknight MD at [facility] MAIN OR Significant Family History: [...] (H) 65 - 199 mg/dL Labs at [facility] 12/08/2021-troponin I 8004 (UN [...] Monitor for ADRs. Trend troponins. Admission EKG. [facility] 12/09; consented. TTE. Telemetry monitoring, daily weights, [...] code #Diet-carb control; n.p.o. after midnight for [facility] #DVT prophy- heparin infusion #GI prophy- PPI Discussed with MD Morgan Peter PA-C APP2 pager [phone] 12/08/2021 Cardiology Attending Note I have seen [...] is type 1 due to graft or eagle coronary stenosis vs acute injury from CHF. 3. PAF: currrently in NSR. Have replaced warfarin with heparin 4. PAD: stable 5. DM: stable 6. CKD: will monitor and minimize contrast. Pt very appreciative of Dr. Yuan Retana's care in 2018. Will let him know patient is here. Iker Cuevsa MD [facility] documented in this encounter Miscellaneous Notes Care [...] Type: *No Product type* / Secondary Insurance: [employer] [place] Prescription Coverage: Yes This plan was [...] cath without complications. Migdalia Parker PA-C Pager #[phone] 12/10/2021 Initial Assessments - Nick Georges RN [...] COVID test: Lab Results Component Value Date [id number] Not Detected 12/08/2021 Past medical History: Past [...] spouse would be surrogate decision maker per [place] surrogate decision making law. (Only good for 180 days) Any patient receiving care at [facility] must abide by [place] law. The hierarchy for surrogate decision making [...] (i) The agent with financial power of claim attorney or a conservator appointed in accordance [...] - standard, cane - straight Home Address: [address] [place] [address] [place] [address] Social & Family Supports: All names listed below confirmed with patient as current and correct Extended Emergency Contact Information Primary Emergency Contact: Kisha Fatima Address: [address] [place] [address] [place] [address] [facility] Mobile Relation: Spouse Secondary Emergency Contact: Elba Swenson Address: [place], [place] [id number] [place] [address] Mobile Relation: Child Current Care Provided by: [...] Type: *No Product type* / Secondary Insurance: [facility] Prescription Coverage: Yes Preferred Pharmacy: [facility] [place] [id number] [facility] - [place], [place] - [address] [place] [id number] [place] Status: Patient is a : unable to assess Primary Care Provider: Lovely Vicente MD [phone] Patient/Caregiver Goals of Treatment: Get out of here Potential Needs for Transition of Care: none Agency Referrals: none patient has used [employer] in the past Transportation: no concerns Transportation Anticipated: family or friend will provide Concerns to be Addressed: patient refuses services, discharge planning Assessment: Patient is admitted to [facility] Service pager [phone] for 76 y.o.??male??with h/o??CAD s/p 3vCABG (THOMPSON-LAD, [...] status on current unit. Nick Georges RN blockman, Office of Care Management Pager: [phone] Brief Op Note - Vitaliy Nobles MD - 12/10/2021 8:31 AM EDT Images from the original note were not included. [facility] [place] [address] [address] CORONARY ANGIOGRAM AND PERCUTANEOUS CORONARY INTERVENTION REPORT Patient: Don Fatima : 1945 MR number: [id number] Date of Service: 12/10/2021 Senior Data Warehouse Architect: Vitaliy Nobles MD Fellow: [place] [...] review of residential diabetes care. Diabetes History: Don Fatima has had diabetes for 10 years. He has been on insulin for the last several years andis managed by his PCP. Lives in [place], [place] with his . States that he [...] 5 gm carb ratio for each meal) prison diabetes care: Medications - Outpatient treatment regimen recommendations pending based on the hospital course. Monitoring - continue BG tid ac & hs Diet - low fat/low carb diet Exercise - weight-bearing exercise 30 min/day, as tolerated Thank you for allowing us to provide care for your patient Desirae Jett APRN Endocrinology Pager [phone] 70 minutes of this 80 minute visit [...] + trop. 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 DM. MARIA VICTORIA.ICM. ??? ASHD [...] to remain on Med/Surg floor, please page [phone] for any further questions or concerns. LANDON [...] for further details. STEPHANIE Rebolledo 12/08/2021 Pager [phone] documented in this encounter Plan of Treatment Upcoming Encounters Date Type Specialty Care Team Description 03/26/2022 Office Visit Cardiology Vitaliy Nobles MD [facility] [address] [place], [place] [address] (Wo rk) 05/28/2022 Appointment Cardiology Zulma Dolan MD [facility] [address] [place], [place] [address] (Wo rk) 05/28/2022 Laboratory Appointment Lab 05/28/2022 Office Visit Cardiology Zulma Dolan MD [facility] [place] [address] Liz Poole PA [facility] [place] [address] 06/10/2022 Office Visit Dermatology Laura Scherer MD [facility] DR TEJA GR[place]MAT [place], [place] [address] (Wo rk) Scheduled Referrals Name [...] POC Glucose 215 (H) 65 - 199 [facility] mg/dL [facility] Comment: Supplemental ranges: <140 mg/dL before meals <180 mg/dL all other times of the day Specimen Anatomical Collection Method Collection Time Receive d Time (Source) Location / / Volume Laterality Blood 12/12/2021 7:42 AM 7:42 EDT AM EDT Ifeanyi Truong MD POINT OF CARE TEST ORDERABLE S Performing Organization Address City/State/[place] [address] (ABNORMAL) Differential, Automated (12/12/2021 4:51 AM EDT) athologist [facility] Neutrophils % 75.4 % [facility] Neutr Abs (ANC) 5.95 1.70 - [facility] 6.10 [facility] x10(3)/[facility] LABORATORY Lymphocytes % 12.2 % [facility] Lymphocytes Abs 1.0 0.9 - 3.2 [facility] x10(3)/[place] LABORATORY Monocytes % 9.5 % [facility] Monocyte Abs 0.8 0.3 - 0.9 [facility] x10(3)/[place] LABORATORY Eosinophils % 1.8 % [facility] Eosinophils Abs 0.1 0.0 - 0.4 [facility] x10(3)/[place] LABORATORY Basophils % 0.5 % [facility] Basophils Abs 0.0 0.0 - 0.1 [facility] x10(3)/[place] LABORATORY Immature Gran % 0.60 [...] Organization Address City/State/[place] [address] (ABNORMAL) Hemogram (12/12/2021 4:51 AM EDT) Analysis Performed At Patho logist Time Signature WBC 7.9 4.0 - 9.5 [facility] x10(3)/[place] LABORATORY RBC 4.19 (L) 4.58 - [facility] 5.54 [facility] x10(6)/[facility] LABORATORY Hemoglobin 12.1 (L) 13.7 - [facility] 16.5 g/dL [facility] Hematocrit 36.7 (L) 40.5 - [facility] 48.5 % [facility] MCV 87.6 82.9 - [facility] 93.1 [facility] LABORATORY MCH 28.9 27.5 - [facility] 32.1 pg [facility] MCHC 33.0 32.0 - [facility] 35.7 g/dL [facility] Platelets 231 145 - 357 [facility] x10(3)/[place] LABORATORY RDWSD 47.2 (H) 36.0 - [facility] 45.0 [facility] LABORATORY RDWCV 14.6 (H) 11.4 - [facility] RYAN 13.8 % [facility] MPV 9.5 7.6 - 12.9 [facility] LABORATORY nRBC % Auto 0.0 % [facility] nRBC Abs Auto 0.000 0.000 - [facility] RYAN 0.000 [facility] x10(3)/[facility] LABORATORY Specimen Anatomical Collection Method Collection Time Receive d Time (Source) Location / / Volume Laterality Blood 12/12/2021 4:51 AM 2 5:06 EDT AM EDT Resulting Agency Comment Spec In Lab Bijan Sun MD HEMATOLOGY ORDERABLES Performing Organization Address City/State/[place] [address] (ABNORMAL) Prothrombin Time (12/12/2021 4:51 AM EDT) P athologist Signature PT 14.9 (H) 9.4 - 12.5 [facility] LABORATORY INR 1.3 [facility] Comment: An INR [...] Cuevas MD HEMATOLOGY ORDERABLES Performing Organization Address City/[facility]/[place] [address] (ABNORMAL) BMP w/fasting Glucose (12/12/2021 4:51 AM EDT) P athologist Signature Glucose 152 (H) 65 - 99 [facility] Fasting mg/dL [facility] Comment: ?Fasting* Glucose Interpretive C [...] of Diabetes Mellitus, Position Statement from the [place] [employer]. ??Diabete s Care, Volume 33, Supplement 1, Jul 2009 BUN 52 (H) 10 - 20 mg/dL [facility] Creatinine 1.72 (H) 0.80 - 1.50 mg/dL [facility] Sodium 143 135 - 145 mmol/L [facility] Potassium 3.9 3.5 - 5.0 mmol/L [facility] Comment: Please note: ??Patients with WBC >100,00 0 may have falsely elevated Potassium levels. ??For accurate Potassium quantif ication in these patients send serum separator tube (gold top) for subsequent determinations. ??Contact the Clinical Chemistry Laboratory if there are any qu estions. Chloride 105 98 - 107 mmol/L [facility] CO2 21 (L) 22 - 31 mmol/L [facility] Anion Gap 17 (H) 5 - 15 mmol/L [facility] Calcium 8.9 8.5 - 10.5 mg/dL [facility] Estimated GFR 38 (L) >=60 mL/min/1.73 m?? [facility] [...] Address City/State/ZIP Code [place] [address] Magnesium (12/12/2021 4:51 AM EDT) athologist Signature Magnesium 1.02 0.69 - 1.07 [facility] mmol/L [facility] Specimen Anatomical Collection Method Collection Time Receive d Time (Source) Location / / Volume Laterality Blood 12/12/2021 4:51 AM 2 5:06 EDT AM EDT Resulting Agency Comment Spec In Lab Iker Cuevas MD CHEMISTRY ORDERABLES Performing Organization Address City/State/ZIP Code Phon e Number [address] POCT Glucose (12/12/2021 3:43 AM EDT) athologist Signature POC Glucose 138 65 - 199 [facility] mg/dL [facility] Comment: Supplemental ranges: <140 mg/dL before meals <180 mg/dL all other times of the day Specimen Anatomical Collection Method Collection Time Receive d Time (Source) Location / / Volume Laterality Blood 12/12/2021 3:43 AM 2 3:43 EDT AM EDT Iker Cuevas MD POINT OF CARE TEST ORDERABLE S Performing Organization Address City/State/ZIP Code Phon e Number [address] POCT Glucose (12/11/2021 11:44 PM EDT) athologist Signature POC Glucose 124 65 - 199 [facility] mg/dL [facility] Comment: Supplemental ranges: <140 mg/dL before meals <180 mg/dL all other times of the day Specimen Anatomical Collection Method Collection Time Receive d Time (Source) Location / / Volume Laterality Blood 12/11/2021 11:44 12/11/2021 PM EDT 11:44 PM EDT Iker Cuevas MD POINT OF CARE TEST ORDERABLE S Performing Organization Address City/State/[place] [address] (ABNORMAL) POCT Glucose (12/11/2021 8:12 PM EDT) athologist Signature POC Glucose 200 (H) 65 - 199 [place] mg/dL [facility] Comment: Supplemental ranges: <140 mg/dL before meals <180 mg/dL all other times of the day Specimen Anatomical Collection Method Collection Time Receive d Time (Source) Location / / Volume Laterality Blood 12/11/2021 8:12 PM 2 8:12 EDT PM EDT Iker Cuevas MD POINT OF CARE TEST ORDERABLE S Performing Organization Address City/State/[place] [address] (ABNORMAL) POCT Glucose (12/11/2021 6:50 PM EDT) athologist Signature POC Glucose 245 (H) 65 - 199 [facility] mg/dL [facility] Comment: Supplemental ranges: <140 mg/dL before meals <180 mg/dL all other times of the day Specimen Anatomical Collection Method Collection Time Receive d Time (Source) Location / / Volume Laterality Blood 12/11/2021 6:50 PM 2 6:50 EDT PM EDT Iker Cuevas MD POINT OF CARE TEST ORDERABLE S Performing Organization Address City/State/[place] [address] (ABNORMAL) POCT Glucose (12/11/2021 4:00 PM EDT) athologist Signature POC Glucose 383 (H) 65 - 199 [place] mg/dL [facility] Comment: Supplemental ranges: <140 mg/dL before meals <180 mg/dL all other times of the day Specimen Anatomical Collection Method Collection Time Receive d Time (Source) Location / / Volume Laterality Blood 12/11/2021 4:00 PM 2 4:00 EDT PM EDT Iker Cuevas MD POINT OF CARE TEST ORDERABLE S Performing Organization Address City/State/[place] [address] (ABNORMAL) POCT Glucose (12/11/2021 12:01 PM EDT) P athologist Signature POC Glucose 342 (H) 65 - 199 [place] mg/dL [facility] Comment: Supplemental ranges: <140 mg/dL before meals <180 mg/dL all other times of the day Specimen Anatomical Collection Method Collection Time Receive d Time (Source) Location / / Volume Laterality Blood 12/11/2021 12:01 12/11/2021 PM EDT 12:01 PM EDT Iker Cuevas MD POINT OF CARE TEST ORDERABLE S Performing Organization Address City/State/[place] [address] COVID-19 PCR (12/11/2021 10:13 AM EDT) Patholo gist Method Time Signature SARS-CoV-2 Not Detected Not Detected [place] [facility] [place] [facility] Comment: This result should be [...] diagnosis of COVID-19 is performed using the [employer] Al[employer] m RONNA S-CoV-2 Assay as authorized by the FDA Emergency Use Authorization (EUA). This EUA assay is intended for In-vitro Diagnostic (IVD) use with respiratory sp ecimens such as nasopharyngeal swabs collected from individuals during the ac terrence phase of infection. This assay is performed based on the instructions for use provided by [employer] and additional guidance provided by CDC and FDA. Testing is performed in the Clinical Genomics and Advanced Technolog y Laboratory within the Department of Pathology and Laboratory Medicine at [facility], certified under the Clinical Laboratory Improvement Amendments [...] is infected. As required or requested by [facility], positive specimens may be sent for [...] management guidance information are available at [facility] CDC Coronavirus Disease 2019 (COVID-19) webpage under Information fo r Healthcare Professionals (https://www.cdc.gov/coronavirus/2019-nc ov/hcp/index.html) Additional information about this and ot her EUA tests can be found in provider and patient fact sheets at the following FDA website: https://www.fda.gov/medical-devices/syoinkodxvf-reowgdf-1593-mhmyr-03-muywryebn- jmu-hbgfmfqxtpgxnj-pobfblx-devices/agbdg-ycmgkpmwxim-kvjq SARS-Cov-2 RNA Source [employer] Swab [facility] Specimen (Source) Anatomical Collection Method Collection Time Re ceived Time Location / / Volume Laterality Nasopharyngeal Swab 12/11/2021 10:13 0503/2022 AM EDT 11:16 AM EDT Comment: Symptoms->Surveillance Resulting Agency Comment Spec In Lab Iker Cuevas MD MICROBIOLOGY - GENERAL ORDER [place] Performing Organization Address City/State/[place] [address] POCT Glucose (12/11/2021 7:34 AM EDT) P athologist Signature POC Glucose 198 65 - 199 [facility] RYAN mg/dL [facility] Comment: Supplemental ranges: <140 mg/dL before meals <180 mg/dL all other times of the day Specimen Anatomical Collection Method Collection Time Receive d Time (Source) Location / / Volume Laterality Blood 12/11/2021 7:34 AM 2 7:34 EDT AM EDT Iker Cuevas MD POINT OF CARE TEST ORDERABLE S Performing Organization Address City/State/[place] [address] (ABNORMAL) POCT Glucose (12/11/2021 5:07 AM EDT) athologist Signature POC Glucose 208 (H) 65 - 199 [facility] Comment: Supplemental ranges: <140 mg/dL before meals <180 mg/dL all other times of the day Specimen Anatomical Collection Method Collection Time Receive d Time (Source) Location / / Volume Laterality Blood 12/11/2021 5:07 AM 2 5:07 EDT AM EDT Iker Cuevas MD POINT OF CARE TEST ORDERABLE S Performing Organization Address City/[facility]/[place] [address] (ABNORMAL) Differential, Automated (12/11/2021 4:28 AM EDT) [facility] gist Method Time Signature Neutrophils % 79.6 % [facility] Neutr Abs (ANC) 7.01 (H) 1.70 - [facility] 6.10 [facility] x10(3)/[facility] L LABORATORY Lymphocytes % 9.1 % [facility] Lymphocytes Abs 0.8 (L) 0.9 - 3.2 [facility] x10(3)/[facility] LABORATORY Monocytes % 9.2 % [facility] Monocyte Abs 0.8 0.3 - 0.9 [facility] x10(3)/[facility] LABORATORY Eosinophils % 1.3 % [facility] Eosinophils Abs 0.1 0.0 - 0.4 [facility] x10(3)/[facility] LABORATORY Basophils % 0.5 % [facility] Basophils Abs 0.0 0.0 - 0.1 [facility] x10(3)/[facility] LABORATORY Immature Gran % 0.30 % [...] 0.00 - 0.04 x10(3)/[facility] Specimen Anatomical Collection Method Collection Time Receive d Time (Source) Location / / Volume Laterality Blood 12/11/2021 4:28 AM 4:37 EDT AM EDT Resulting Agency Comment Spec In Lab Bijan Sun MD HEMATOLOGY ORDERABLES Performing Organization Address City/State/[place] [address] (ABNORMAL) Hemogram (12/11/2021 4:28 AM EDT) Analysis Performed At Patho logist Time Signature WBC 8.8 4.0 - 9.5 [facility] x10(3)/[place] LABORATORY RBC 4.15 (L) 4.58 - [facility] 5.54 [facility] x10(6)/[facility] LABORATORY Hemoglobin 11.9 (L) 13.7 - [facility] 16.5 g/dL [facility] Hematocrit 36.9 (L) 40.5 - [facility] 48.5 % [facility] MCV 88.9 82.9 - [facility] 93.1 fL [facility] MCH 28.7 27.5 - [facility] 32.1 pg [facility] MCHC 32.2 32.0 - [facility] 35.7 g/dL [facility] Platelets 211 145 - 357 [facility] x10(3)/[place] LABORATORY RDWSD 48.3 (H) 36.0 - [facility] RYAN 45.0 [facility] LABORATORY RDWCV 14.8 (H) 11.4 - [facility] 13.8 % [facility] MPV 9.6 7.6 - 12.9 [facility] nRBC % Auto 0.0 % [facility] LABOR[facility]ORY nRBC Abs Auto 0.000 0.000 - [place] RYAN 0.000 [facility] x10(3)/[facility] LABORATORY Specimen Anatomical Collection Method Collection Time Receive d Time (Source) Location / / Volume Laterality Blood 12/11/2021 4:28 AM 2 4:37 EDT AM EDT Resulting Agency Comment Spec In Lab Bijan Sun MD HEMATOLOGY ORDERABLES Performing Organization Address City/[facility]/ZIP Code Phon e Number [address] (ABNORMAL) Prothrombin Time (12/11/2021 4:28 AM EDT) P athologist Signature PT 17.7 (H) 9.4 - 12.5 [facility] LABORATORY INR 1.6 [facility] Comment: An INR [...] Cuevas MD HEMATOLOGY ORDERABLES Performing Organization Address City/[facility]/ZIP Code Phon e Number [address] (ABNORMAL) BMP w/fasting Glucose (12/11/2021 4:28 AM EDT) P athologist Signature Glucose 207 (H) 65 - 99 [facility] Fasting mg/dL [facility] Comment: ?Fasting* Glucose Interpretive C [...] of Diabetes Mellitus, Position Statement from the [place] [employer]. ??Diabete s Care, Volume 33, Supplement 1, Jul 2009 BUN 49 (H) 10 - 20 mg/dL [facility] Creatinine 1.43 0.80 - 1.50 mg/dL [facility] Sodium 142 135 - 145 mmol/L [facility] Potassium 4.0 3.5 - 5.0 mmol/L [facility] mg/dL [facility] Estimated GFR 48 (L) >=60 mL/min/1.73 m?? [facility] [...] Address City/State/ZIP Code Phon e Number [address] Magnesium (12/11/2021 4:28 AM EDT) athologist Signature Magnesium 1.04 0.69 - 1.07 [facility] mmol/L [facility] Specimen Anatomical Collection Method Collection Time Receive d Time (Source) Location / / Volume Laterality Blood 12/11/2021 4:28 AM 2 4:37 EDT AM EDT Resulting Agency Comment Spec In Lab Iker Cuevas MD CHEMISTRY ORDERABLES Performing Organization Address City/[facility]/[place] [address] POCT Glucose (12/11/2021 3:58 AM EDT) athologist Signature POC Glucose 189 65 - 199 [facility] mg/dL [facility] Comment: Supplemental ranges: <140 mg/dL before meals <180 mg/dL all other times of the day Specimen Anatomical Collection Method Collection Time Receive d Time (Source) Location / / Volume Laterality Blood 12/11/2021 3:58 AM 2 3:58 EDT AM EDT Iker Cuevas MD POINT OF CARE TEST ORDERABLE S Performing Organization Address City/State/ZIP Code Phon e Number [address] (ABNORMAL) POCT Glucose (12/10/2021 11:45 PM EDT) athologist Signature POC Glucose 205 (H) 65 - 199 [facility] mg/dL [facility] Comment: Supplemental ranges: <140 mg/dL before meals <180 mg/dL all other times of the day Specimen Anatomical Collection Method Collection Time Receive d Time (Source) Location / / Volume Laterality Blood 12/10/2021 11:45 12/10/2021 PM EDT 11:45 PM EDT Iker Cuevas MD POINT OF CARE TEST ORDERABLE S Performing Organization Address City/[facility]/[place] [address] (ABNORMAL) POCT Glucose (12/10/2021 7:54 PM EDT) athologist Signature POC Glucose 225 (H) 65 - 199 [facility] mg/dL [facility] Comment: Supplemental ranges: <140 mg/dL before meals <180 mg/dL all other times of the day Specimen Anatomical Collection Method Collection Time Receive d Time (Source) Location / / Volume Laterality Blood 12/10/2021 7:54 PM 2 7:54 EDT PM EDT Iker Cuevas MD POINT OF CARE TEST ORDERABLE S Performing Organization Address City/[facility]/[place] [address] Potassium (12/10/2021 7:46 PM EDT) athologist Signature Potassium 4.2 3.5 - 5.0 [facility] mmol/L [facility] Comment: Please note: ??Patients with [...] Cuevas MD CHEMISTRY ORDERABLES Performing Organization Address City/[facility]/ZIP Code [place] [address] (ABNORMAL) Basic Metabolic Panel (non-fasting) (12/10/2021 6:12 PM EDT) athologist Signature Glucose Lvl 246 (H) 65 - 199 [facility] mg/dL [facility] Comment: Diabetes: >=200 mg/dL plus symp toms BUN 50 (H) 10 - 20 mg/dL [facility] Creatinine 1.39 0.80 - 1.50 mg/dL [facility] Sodium 138 135 - 145 mmol/L [facility] Potassium Not Perf 3.5 - 5.0 [facility] Comment: Unable to quantitate due [...] 107 mmol/L [facility] CO2 22 22 - 31 mmol/L [facility] Anion Gap 16 (H) 5 - 15 mmol/L [facility] Calcium 8.3 (L) 8.5 - 10.5 mg/dL [facility] Estimated GFR 49 (L) >=60 mL/min/1.73 m?? [facility] [...] City/State/[place] [address] POCT Glucose (12/10/2021 4:59 PM EDT) P athologist Signature POC Glucose 158 65 - 199 [facility] RYAN mg/dL [facility] Comment: Supplemental ranges: <140 mg/dL before meals <180 mg/dL all other times of the day Specimen Anatomical Collection Method Collection Time Receive d Time (Source) Location / / Volume Laterality Blood 12/10/2021 4:59 PM 2 4:59 EDT PM EDT Iker Cuevas MD POINT OF CARE TEST ORDERABLE S Performing Organization Address City/[facility]/[place] [address] (ABNORMAL) POCT Glucose (12/10/2021 12:43 PM EDT) P athologist Signature POC Glucose 241 (H) 65 - 199 [place] [facility] mg/dL [facility] Comment: Supplemental ranges: <140 mg/dL before meals <180 mg/dL all other times of the day Specimen Anatomical Collection Method Collection Time Receive d Time (Source) Location / / Volume Laterality Blood 12/10/2021 12:43 12/10/2021 PM EDT 12:43 PM EDT Iker Cuevas MD POINT OF CARE TEST ORDERABLE S Performing Organization Address City/[facility]/ZIP Code Phon e Number [address] EKG 12 Lead (12/10/2021 11:17 AM EDT) Component Value Ref Range Test Analysis Performed Pathologis t Method Time At Signature Ventricular rate 62 BPM MUSE SYSTEM Atrial Rate 62 BPM MUSE SYSTEM P-R Interval 142 ms MUSE SYSTEM QRS Duration 100 ms MUSE SYSTEM Q-T Interval 434 ms MUSE SYSTEM QTC Calculated 440 ms MUSE SYSTEM (Bezet) Calculated P [place] 34 degrees MUSE SYSTEM Calculated R [place] -39 degrees MUSE SYSTEM Calculated T [place] 92 degrees MUSE SYSTEM INTERPRETATION Normal sinus [...] SYSTEM - 12/10/2021 12:04 PM E DT ?[facility] ? Cardiac Cathete rization/Intervention Report ? Patient Name: Don Fatima ? Procedure Date: 12/10/2021 ? A #: [id number] ? Primary Physician: Vitaliy Nobles ? Case #: [id number] ? File Name: [id number] ? Catheterization Order Number: [id number] ? [facility] ?[facility] ? Final Report [place], [place] ? Patient Name: ? Don E. Stewa rt ? ID#: ?[id number] ? : ?1945 ? Procedure Date: ? [...] ?designated as ASA Class III. Th e [facility] clinical frailty scale is 5: [...] was Urgent. The indication for ?the label paster visit is ACS great er than 24 [...] will be ?described in the intervention s sherly section. 5,500 units of heparin ?were administered. [...] ?3.75 guiding catheter and a 3.5 Fr [facility] 20 Mhz using Manual ?pullback. ??Imaging was [...] ?3.75 guiding catheter and a 3.5 Fr [facility] 20 Mhz using Manual ?pullback. ??Imaging was success ful. ??Image quality was good. ??The distal ?LM showed moderate diffuse athe rosclerotic plaque. ?Post Intervention: The stent truong s well expanded and apposed. ? Indication [...] of this regimen. C [place] [facility] [place] for ?questions. ?The 1 year [...] Procedure Note Vitaliy Nobles MD - 01/14/2022 [facility] Cardiac Catheterization/Intervention Re port Patient Name: Don Fatima Procedure Date: 12/10/2021 A #: [id number] Primary Physician: Vitaliy Nobles Case #: [id number] File Name: [id number] Catheterization Order Number: [id number] [facility] Final Report [place], [place] Patient Name: Don Fatima ID#: [...] was Urgent. The indication for the label paster visit is ACS greater than 24 hrs [...] and a 3.5 Fr [facility] 20 Mhz using Manual pullback. Imaging was [...] and a 3.5 Fr [facility] 20 Mhz using Manual pullback. Imaging was [...] pa rt of the stent to 20 adrshan pressure. We used an additional 5.5 x [...] 262 (H) 65 - 199 [facility] mg/dL [facility] Comment: Supplemental ranges: <140 mg/dL before meals <180 mg/dL all other times of the day Specimen Anatomical Collection Method Collection Time Receive d Time (Source) Location / / Volume Laterality Blood 12/10/2021 10:30 12/10/2021 AM EDT 10:30 AM EDT Iker Cuevas MD POINT OF CARE TEST ORDERABLE S Performing Organization Address City/State/[place] [address] (ABNORMAL) POCT Glucose (12/10/2021 9:48 AM EDT) athologist Signature POC Glucose 279 (H) 65 - 199 [facility] mg/dL [facility] Comment: Supplemental ranges: <140 mg/dL before meals <180 mg/dL all other times of the day Specimen Anatomical Collection Method Collection Time Receive d Time (Source) Location / / Volume Laterality Blood 12/10/2021 9:48 AM 2 9:48 EDT AM EDT Iker Cuevas MD POINT OF CARE TEST ORDERABLE S Performing Organization Address City/[facility]/[place] [address] (ABNORMAL) POCT Glucose (12/10/2021 9:07 AM EDT) athologist Signature POC Glucose 268 (H) 65 - 199 [facility] mg/dL [facility] Comment: Supplemental ranges: <140 mg/dL before meals <180 mg/dL all other times of the day Specimen Anatomical Collection Method Collection Time Receive d Time (Source) Location / / Volume Laterality Blood 12/10/2021 9:07 AM 2 9:07 EDT AM EDT Iker Cuevas MD POINT OF CARE TEST ORDERABLE S Performing Organization Address City/State/[place] [address] (ABNORMAL) Point of Care Blood Gas Historical (12/10/2021 9:04 AM EDT) Patholo gist Method Time Signature POC pH 7.40 7.35 - [facility] 7.45 [facility] POC PCO2 40 35 - 45 [facility] mmHg [facility] POC PO2 63 (L) 85 - 104 [facility] LABORATORY POC Base Excess 0.0 -3.0 - 3.0 [facility] K mmol/L [facility] POC HCO3 24.8 20.0 - [facility] 26.0 [facility] POC Sodium 143 135 - 145 [facility] mmol/L [facility] POC Potassium 3.7 3.5 - 5.0 [facility] mmol/L [facility] POC Ionized Ca 1.07 (L) 1.15 - [facility] 1.33 [facility] mmolL [facility] LABORATORY POC Hematocrit 30.0 (L) 40.0 - [facility] 51.0 % [facility] POC Calc Hgb 10.2 (L) 13.7 - [facility] 17.5 g/dL [facility] Comment: The calculation of hemoglobin f rom hematocrit assumes a normal MCHC. POC Bgas Loc CC LAB [facility] LABORATORY Specimen Anatomical Collection Method Collection Time Receive d Time (Source) Location / / Volume Laterality Blood 12/10/2021 9:04 AM 2 EDT 12:00 PM EDT Ifeanyi Truong MD CHEMISTRY ORDERABLES Performing Organization Address City/State/[place] [address] (ABNORMAL) POCT Glucose (12/10/2021 7:19 AM EDT) P athologist Signature POC Glucose 274 (H) 65 - 199 [facility] mg/dL [facility] Comment: Supplemental ranges: <140 mg/dL before meals <180 mg/dL all other times of the day Specimen Anatomical Collection Method Collection Time Receive d Time (Source) Location / / Volume Laterality Blood 12/10/2021 7:19 AM 2 7:19 EDT AM EDT Iker Cuevas MD POINT OF CARE TEST ORDERABLE S Performing Organization Address City/[facility]/[place] [address] Heparin (unfractionated) Level (12/10/2021 4:25 AM EDT) P athologist Signature Heparin UFH 0.69 IU/mL [place] [...] Cuevas MD HEMATOLOGY ORDERABLES Performing Organization Address City/[facility]/ZIP Code Phon e Number [address] (ABNORMAL) Differential, Automated (12/10/2021 4:25 AM EDT) Patholo gist Method Time Signature Neutrophils % 79.8 % [facility] Neutr Abs (ANC) 7.47 (H) 1.70 - [facility] 6.10 [facility] x10(3)/[facility] LABORATORY Lymphocytes % 10.6 % [facility]ORATORY Lymphocytes Abs 1.0 0.9 - 3.2 [facility] x10(3)/[facility] LABORATORY Monocytes % 8.4 % [facility] LABORATORY Monocyte Abs 0.8 0.3 - 0.9 [facility] x10(3)/[facility] LABORATORY Eosinophils % 0.6 % [facility] LABORATORY Eosinophils Abs 0.1 0.0 - 0.4 [facility] x10(3)/[facility] LABORATORY Basophils % 0.2 % [facility] LABORATORY Basophils Abs 0.0 0.0 - 0.1 [facility] x10(3)/[facility] LABORATORY Immature Gran % 0.40 [...] 0.00 - 0.04 x10(3)/[facility] LABORATORY Specimen Anatomical Collection Method Collection Time Receive d Time (Source) Location / / Volume Laterality Blood 12/10/2021 4:25 AM 4:34 EDT AM EDT Resulting Agency Comment Spec In Lab Morgan BROWN HEMATOLOGY ORDERABLES Performing Organization Address City/State/[place] [address] (ABNORMAL) Hemogram (12/10/2021 4:25 AM EDT) Analysis Performed At Patho logist Time Signature WBC 9.4 4.0 - 9.5 [facility] x10(3)/[place] LABORATORY RBC 3.81 (L) 4.58 - [facility] 5.54 [facility] x10(6)/[facility] LABORATORY Hemoglobin 11.1 (L) 13.7 - [facility] 16.5 g/dL [facility] Hematocrit 34.0 (L) 40.5 - [facility] 48.5 % [facility] MCV 89.2 82.9 - [facility] 93.1 fL [facility] MCH 29.1 27.5 - [facility] 32.1 pg [facility] MCHC 32.6 32.0 - [facility] 35.7 g/dL [facility] Platelets 183 145 - 357 [facility] x10(3)/[place] LABORATORY RDWSD 49.9 (H) 36.0 - [facility] 45.0 [facility] LABORATORY RDWCV 15.2 (H) 11.4 - [facility] 13.8 % [facility] MPV 9.8 7.6 - 12.9 [facility] LABORATORY nRBC % Auto 0.0 % [facility] LABORATORY nRBC Abs Auto 0.000 0.000 - [facility] 0.000 [facility] x10(3)/[facility] LABORATORY Specimen Anatomical Collection Method Collection Time Receive d Time (Source) Location / / Volume Laterality Blood 12/10/2021 4:25 AM 2 4:34 EDT AM EDT Resulting Agency Comment Spec In Lab Morgan BROWN HEMATOLOGY ORDERABLES Performing Organization Address City/[facility]/[place] [address] (ABNORMAL) Prothrombin Time (12/10/2021 4:25 AM EDT) P athologist Signature PT 20.0 (H) 9.4 - 12.5 [facility] LABORATORY INR 1.7 [facility]ORY Comment: An INR [...] Cuevas MD HEMATOLOGY ORDERABLES Performing Organization Address City/[facility]/[place] [address] (ABNORMAL) BMP w/fasting Glucose (12/10/2021 4:25 AM EDT) athologist Signature Glucose 210 (H) 65 - 99 [facility] Fasting mg/dL [facility] Comment: ?Fasting* Glucose Interpretive C [...] of Diabetes Mellitus, Position Statement from the [place] [employer]. ??Diabete s Care, Volume 33, Supplement 1, Jul 2009 BUN 54 (H) 10 - 20 mg/dL [facility] LABORATORY Creatinine 1.52 (H) 0.80 - 1.50 mg/dL [facility] LABORATORY Sodium 140 135 - 145 mmol/L [facility] LABORATORY Potassium 3.9 3.5 - 5.0 mmol/L [facility] [...] mmol/L [facility] LABORATORY Calcium 8.0 (L) 8.5 - 10.5 mg/dL [facility] Estimated GFR 44 (L) >=60 mL/min/1.73 m?? [facility] [...] Cuevas MD CHEMISTRY ORDERABLES Performing Organization Address City/[facility]/[place] [address] Magnesium (12/10/2021 4:25 AM EDT) P athologist Signature Magnesium 0.95 0.69 - 1.07 [facility] mmol/L [facility] Specimen Anatomical Collection Method Collection Time Receive d Time (Source) Location / / Volume Laterality Blood 12/10/2021 4:25 AM 2 4:34 EDT AM EDT Resulting Agency Comment Spec In Lab Iker Cuevas MD CHEMISTRY ORDERABLES Performing Organization Address City/[facility]/[place] [address] POCT Glucose (12/10/2021 1:58 AM EDT) P athologist Signature POC Glucose 164 65 - 199 [facility] mg/dL [facility] Comment: Supplemental ranges: <140 mg/dL before meals <180 mg/dL all other times of the day Specimen Anatomical Collection Method Collection Time Receive d Time (Source) Location / / Volume Laterality Blood 12/10/2021 1:58 AM 2 1:58 EDT AM EDT Iker Cuevas MD POINT OF CARE TEST ORDERABLE S Performing Organization Address City/[facility]/ZIP Code [place] [address] (ABNORMAL) POCT Glucose (12/09/2021 9:02 PM EDT) athologist Signature POC Glucose 313 (H) 65 - 199 [facility] mg/dL [facility] Comment: Supplemental ranges: <140 mg/dL before meals <180 mg/dL all other times of the day Specimen Anatomical Collection Method Collection Time Receive d Time (Source) Location / / Volume Laterality Blood 12/09/2021 9:02 PM 2 9:02 EDT PM EDT Iker Cuevas MD POINT OF CARE TEST ORDERABLE S Performing Organization Address City/State/[place] [address] Heparin (unfractionated) Level (12/09/2021 [...] City/State/[place] [address] (ABNORMAL) Basic Metabolic Panel (non-fasting) (12/09/2021 7:30 PM EDT) P athologist Signature Glucose Lvl 372 (H) 65 - 199 [facility] mg/dL [facility] Comment: Diabetes: >=200 mg/dL plus symp toms BUN 56 (H) 10 - 20 mg/dL [facility] Creatinine 1.75 (H) 0.80 - 1.50 mg/dL [facility] Sodium 138 135 - 145 mmol/L [facility] Potassium 4.2 3.5 - 5.0 mmol/L [facility] Comment: Please note: ??Patients with WBC >100,00 0 may have falsely elevated Potassium levels. ??For accurate Potassium quantif ication in these patients send serum separator tube (gold top) for subsequent determinations. ??Contact the Clinical Chemistry Laboratory if there are any qu estions. Chloride 102 98 - 107 mmol/L [facility] CO2 22 22 - 31 mmol/L [facility] Anion Gap 14 5 - 15 mmol/L [facility] Calcium 8.1 (L) 8.5 - 10.5 mg/dL [facility] Estimated GFR 37 (L) >=60 mL/min/1.73 m[facility] [...] Cuevas MD CHEMISTRY ORDERABLES Performing Organization Address City/[facility]/[place] [address] (ABNORMAL) POCT Glucose (12/09/2021 6:34 PM EDT) athologist Signature POC Glucose 408 (H) 65 - 199 [place] [facility] mg/dL [facility] Comment: Supplemental ranges: <140 mg/dL before meals <180 mg/dL all other times of the day Specimen Anatomical Collection Method Collection Time Receive d Time (Source) Location / / Volume Laterality Blood 12/09/2021 6:34 PM 2 6:34 EDT PM EDT Iker Cuevas MD POINT OF CARE TEST ORDERABLE S Performing Organization Address City/[facility]/[place] [address] (ABNORMAL) POCT Glucose (12/09/2021 6:32 PM EDT) athologist Signature POC Glucose 356 (H) 65 - 199 [place] mg/dL [facility] Comment: Supplemental ranges: <140 mg/dL before meals <180 mg/dL all other times of the day Specimen Anatomical Collection Method Collection Time Receive d Time (Source) Location / / Volume Laterality Blood 12/09/2021 6:32 PM 2 6:32 EDT PM EDT Iker Cuevas MD POINT OF CARE TEST ORDERABLE S Performing Organization Address City/[facility]/[place] [address] (ABNORMAL) POCT Glucose (12/09/2021 4:19 PM EDT) athologist Signature POC Glucose 347 (H) 65 - 199 [place] mg/dL [facility] Comment: Supplemental ranges: <140 mg/dL before meals <180 mg/dL all other times of the day Specimen Anatomical Collection Method Collection Time Receive d Time (Source) Location / / Volume Laterality Blood 12/09/2021 4:19 PM 2 4:19 EDT PM EDT Iker Cuevas MD POINT OF CARE TEST ORDERABLE S Performing Organization Address City/State/[place] [address] Heparin (unfractionated) Level (12/09/2021 [...] / Volume Laterality Blood 12/09/2021 1:29 PM 1:36 EDT PM EDT Resulting Agency Comment Spec In Lab Iker Cuevas MD HEMATOLOGY ORDERABLES Performing Organization Address City/[facility]/[place] [address] (ABNORMAL) POCT Glucose (12/09/2021 12:02 PM EDT) athologist Signature POC Glucose 235 (H) 65 - 199 [facility] mg/dL [facility] Comment: Supplemental ranges: <140 mg/dL before meals <180 mg/dL all other times of the day Specimen Anatomical Collection Method Collection Time Receive d Time (Source) Location / / Volume Laterality Blood 12/09/2021 12:02 12/09/2021 PM EDT 12:02 PM EDT Iker Cuevas MD POINT OF CARE TEST ORDERABLE S Performing Organization Address City/State/[place] [address] (ABNORMAL) POCT Glucose (12/09/2021 9:44 AM EDT) P athologist Signature POC Glucose 214 (H) 65 - 199 [facility] Comment: Supplemental ranges: <140 mg/dL before meals <180 mg/dL all other times of the day Specimen Anatomical Collection Method Collection Time Receive d Time (Source) Location / / Volume Laterality Blood 12/09/2021 9:44 AM 2 9:44 EDT AM EDT Iker Cuevas MD POINT OF CARE TEST ORDERABLE S Performing Organization Address City/State/ZIP Code Phon e Number [place] [phone] [facility] LAB[address] Drive EKG 12 Lead (12/09/2021 7:57 AM EDT) Component Value Ref Range Test Analysis Performed Pathologis t Method Time At Signature Ventricular rate 101 BPM MUSE SYSTEM Atrial Rate 101 BPM MUSE SYSTEM P-R Interval 150 ms MUSE SYSTEM QRS Duration 112 ms MUSE SYSTEM Q-T Interval 364 ms MUSE SYSTEM QTC Calculated 471 ms MUSE SYSTEM (Bezet) Calculated P [place] 59 degrees MUSE SYSTEM Calculated R [place] -42 degrees MUSE SYSTEM Calculated T [place] 102 degrees MUSE SYSTEM INTERPRETATION Sinus tachycardia Occasional Premature ventricular com plexes MUSE SYSTEM Left axis deviation 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) Abnormal ECG When compared with ECG of 08-DEC-2021 16:40, Premature ventricular complexes are now Present Confirmed by MD Fernandez Danette ([id number]) on 12/10/2021 4:55:06 PM Specimen Anatomical Collection Method Collection Time Receive d Time (Source) Location / / Volume Laterality 12/09/2021 7:57 AM 2 4:55 EDT PM EDT Iker Cuevas MD ECG ORDERABLES Performing Organization Address City/State/ZIP Code Phon e Number MUSE SYSTEM (ABNORMAL) POCT Glucose (12/09/2021 7:28 AM EDT) P athologist Signature POC Glucose 263 (H) 65 - 199 [facility] Comment: Supplemental ranges: <140 mg/dL before meals <180 mg/dL all other times of the day Specimen Anatomical Collection Method Collection Time Receive d Time (Source) Location / / Volume Laterality Blood 12/09/2021 7:28 AM 2 7:28 EDT AM EDT Iker Cuevas MD POINT OF CARE TEST ORDERABLE S Performing Organization Address City/State/[place] [address] (ABNORMAL) Hemoglobin A1c (12/09/2021 6:18 AM EDT) Analysis Performed At Patho logis Time Signature Hemoglobin A1C 7.4 (H) 4.3 - 5.6 [facility] Comment: Reference Range: 4.3 [...] [id number] Est Avg Gluc See note mg/dL [facility] Comment: Estimated Average Glucose not [...] with hemoglobinopathies. Additional resources are available on [facility] website. Macario HAMMOND, Ruthann J, Deysi R, et al. ??Tr anslating the A1C assay into estimated average glucose values. ??Diabetes Care 2008:31(8):0121-3432. Specimen Anatomical Collection Method Collection Time Receive d Time (Source) Location / / Volume Laterality Blood Venous Draw / 12/09/2021 6:18 AM 12/10/19 22 Unknown EDT 12:24 PM EDT Resulting Agency Comment Spec In Lab Migdalia BROWN CHEMISTRY ORDERABLES Performing Organization Address [facility] [place] [address] (ABNORMAL) Prothrombin Time (12/09/2021 6:18 AM EDT) P athologist Signature PT 26.6 (H) 9.4 - 12.5 [facility] LABORATORY INR 2.3 [facility] Comment: An INR [...] Migdalia BROWN HEMATOLOGY ORDERABLES Performing Organization Address [facility] [place] [address] Heparin (unfractionated) Level (12/09/2021 6:18 AM EDT) P athologist Signature Heparin UFH 0.24 IU/mL [place] [...] City/State/ZIP Code Phon e Number [place] [phone] (ABNORMAL) Differential, Automated (12/09/2021 6:18 AM EDT) [facility] gist Method Time Signature Neutrophils % 91.5 % [facility] Neutr Abs (ANC) 15.78 (H) 1.70 - [facility] 6.10 [facility] x10(3)/[facility] L LABORATORY Lymphocytes % 2.9 % [facility] Lymphocytes Abs 0.5 (L) 0.9 - 3.2 [facility] x10(3)/[facility] LABORATORY Monocytes % 4.9 % [facility] Monocyte Abs 0.8 0.3 - 0.9 [facility] x10(3)/[facility] LABORATORY Eosinophils % 0.0 % [facility] Eosinophils Abs 0.0 0.0 - 0.4 [facility] x10(3)/[facility] LABORATORY Basophils % 0.2 % [facility] Basophils Abs 0.0 0.0 - 0.1 [facility] x10(3)/[facility] LABORATORY Immature Gran % 0.50 % [...] City/State/ZIP Code Phon e Number [place] [phone] (ABNORMAL) Hemogram (12/09/2021 6:18 AM EDT) Analysis Performed At Patho logist Time Signature WBC 17.2 (H) 4.0 - 9.5 [facility] x10(3)/[place] LABORATORY RBC 4.32 (L) 4.58 - [facility] RYAN 5.54 [facility] x10(6)/[facility] LABORATORY Hemoglobin 12.6 (L) 13.7 - [facility] 16.5 g/dL [facility] Hematocrit 38.9 (L) 40.5 - [facility] RYAN 48.5 % [facility] MCV 90.0 82.9 - [facility] RYAN 93.1 [facility] LABORATORY MCH 29.2 27.5 - [employer] 32.1 pg [facility] MCHC 32.4 32.0 - [facility] RYAN 35.7 g/dL [facility] Platelets 193 145 - 357 [facility] x10(3)/[place] LABORATORY RDWSD 50.4 (H) 36.0 - [facility] RYAN 45.0 [facility] RDWCV 15.2 (H) 11.4 - [facility] RYAN 13.8 % [facility] MPV 9.5 7.6 - 12.9 [facility] LABORATORY nRBC % Auto 0.0 % [facility] nRBC Abs Auto 0.000 0.000 - [facility] 0.000 [facility] x10(3)/[facility] LABORATORY Specimen Anatomical Collection Method Collection Time Receive d Time (Source) Location / / Volume Laterality Blood 12/09/2021 6:18 AM 6:33 EDT AM EDT Resulting Agency Comment Spec In Lab Morgan BROWN HEMATOLOGY ORDERABLES Performing Organization Address City/State/[place] [address] Lipid Panel (Reflex Direct LDL) (12/09/2021 6:18 AM EDT) athologist Signature Chol, Total 105 mg/dL [facility] Comment: Lower Risk: <200 mg/dL Average Risk: 200-239 mg/dL Higher Risk: >xy=445 mg/dL Triglycerides 133 mg/dL [facility] Comment: Average Risk/Lower Risk: <150 mg/dL Borderline High Risk: 150-199 mg/dL High Risk: 200-499 mg/dL Very High Risk: >cx=749 mg/dL HDL 42 mg/dL [facility] Comment: Males: ?? Higher Risk: <40 mg/dL Females: ?? Higher Risk: <50 mg/dL LDL Cholesterol 36 mg/dL [facility] Comment: Lowest Risk: <100 mg/dL Lower Risk: 100-129 mg/dL Borderline High Risk: 130-159 mg/dL High Risk: 160-189 mg/dL Very High Risk: >gd=487 mg/dL Chol/HDL Ratio 2.[address] [facility] Lipid Interpretation See Note [facility] Comment: Lipid management should be guided by a p atient? s ASCVD risk, goals and preferences. ACC/AHA Guidelines recommend high intens ity statin if clinical ASCVD or LDL greater than or equal to 190 mg/dL. [email or web address]-[email or web address] Adults aged 40-75 with LDL 70-189 mg/dL should have their 10 year ASCVD risk estimated with the ACC/AHA ASCVD risk es timator http://tools.acc.org/QIPMS-Lfgg-Wtvtquku r/ Statin should be discussed if risk [...] Cuevas MD CHEMISTRY ORDERABLES Performing Organization Address City/[facility]/[place] [address] TSH (12/09/2021 6:18 AM EDT) P athologist Signature TSH 1.60 0.27 - 4.20 [facility] mcIU/mL [facility] Comment: Reference Interval (mcIU/mL): Females: ??First Trimester: 0.23-3.88 ??Second Trimester: 0.22-3.90 ??Third Trimester: 0.44-4.66 Specimen Anatomical Collection Method Collection Time Receive d Time (Source) Location / / Volume Laterality Blood 12/09/2021 6:18 AM 2 6:33 EDT AM EDT Resulting Agency Comment Spec In Lab Iker Cuevas MD CHEMISTRY ORDERABLES Performing Organization Address City/[facility]/[place] [address] Hepatic Function Panel (12/09/2021 6:18 AM EDT) P athologist Signature Total Protein 7.3 6.1 - 8.0 [facility] g/dL [facility] Albumin 4.2 3.2 - 5.2 [place] g/dL [facility] AST 25 0 - 39 [facility]AN unit/L [facility] ALT 15 0 - 55 [facility] Alk Phos 75 40 - 130 [facility] unit/L [facility] Total 1.1 0.2 - 1.3 [place] Bilirubin mg/dL [facility] Bili, Direct 0.2 0.0 - 0.3 [facility] mg/dL [facility] Specimen Anatomical Collection Method Collection Time Receive d Time (Source) Location / / Volume Laterality Blood 12/09/2021 6:18 AM 6:33 EDT AM EDT Resulting Agency Comment Spec In Lab Iker Cuevas MD CHEMISTRY ORDERABLES Performing Organization Address City/State/[place] [address] (ABNORMAL) BMP w/fasting Glucose (12/09/2021 6:18 AM EDT) athologist Signature Glucose 235 (H) 65 - 99 [facility] Fasting mg/dL [facility] Comment: ?Fasting* Glucose Interpretive C [...] of Diabetes Mellitus, Position Statement from the [place] [employer]. ??Diabete s Care, Volume 33, Supplement 1, Jul 2009 BUN 49 (H) 10 - 20 mg/dL [facility] RYAN [facility] Creatinine 1.33 0.80 - 1.50 mg/dL [facility] Sodium 139 135 - 145 mmol/L [facility] K [facility] Potassium 4.2 3.5 - 5.0 mmol/L [facility] [...] Estimated GFR 52 (L) >=60 mL/min/1.73 m?? [facility] [...] Organization Address City/State/[place] [address] Magnesium (12/09/2021 6:18 AM EDT) P athologist Signature Magnesium 0.81 0.69 - 1.07 [facility] mmol/L [facility] Specimen Anatomical Collection Method Collection Time Receive d Time (Source) Location / / Volume Laterality Blood 12/09/2021 6:18 AM 2 6:33 EDT AM EDT Resulting Agency Comment Spec In Lab Iker Cuevas MD CHEMISTRY ORDERABLES Performing Organization Address City/[facility]/[place] [address] (ABNORMAL) Troponin (12/09/2021 6:18 AM EDT) P athologist Signature Troponin-T 1.13 (H) 0.00 - [facility] 0.00 ng/mL [facility] Comment: The 99th percentile for [...] additional sample may be indicated. Reference: Third [place] Definition of Myocardial Infarction. Journal of the [place] College [employer] 2012;60:1581-98 Specimen Anatomical Collection Method Collection Time Receive d Time (Source) Location / / Volume Laterality Blood 12/09/2021 6:18 AM 2 6:33 EDT AM EDT Resulting Agency Comment Spec In Lab Iker Cuevas MD CHEMISTRY ORDERABLES Performing Organization Address City/[facility]/[place] [address] XR Chest One View [...] who have questions please contact the health pet care attendant that requested your imaging first. [...] ho have questions please contact the health pet care attendant that requested your imaging first. Electronically signed by: Yoselin White, [facility] ([phone]), at 12/09/2021 5:35 AM Amber Sanches MD IMG DX ORDERABLES (ABNORMAL) BLOOD GAS 2 ARTERIAL (12/09/2021 5:14 AM EDT) Analysis Performed At Patho logist Time Signature pH Art 7.43 7.35 - [facility] 7.45 [facility] pCO2 Art 36 35 - 45 [facility] mmHg [facility] pO2 Art 67 (L) 85 - 104 [facility] LABORATORY HCO3 Art 23.4 20.0 - [facility] 26.0 [facility] mmol/L [facility] BE Art -0.9 -3.0 - 3.0 [facility] mmol/L [facility] Hgb Blood Gas 13.2 (L) 13.7 - [facility] 16.5 g/dL [facility] O2HB Art 91.3 (L) 94.0 - [facility] 97.0 % [facility] COHB Art 0.4 % [facility] Comment: Nonsmokers: 0.5-1.5% COHB Smokers: Variable, but usually less than 10% Toxic: 20-30% COHB Lethal: Greater than 60% COHB METHB Art 0.4 <=1.5 % [facility] Na Whole Blood 138 135 - 145 mmol/L [facility] K Whole Blood 4.1 3.5 - 5.0 mmol/L [facility] Comment: Please note: Patients with WBC >100,000 may have falsely elevated Potassium levels. Contact the Clinical Chemistry L aboratory if there are any questions. ICa Whole Blood 1.09 (L) 1.15 - 1.33 mmol/L [facility] Comment: Note: ??Total bilirubin higher than 20 m g/dL may lead to falsely low ionized calcium. CL Whole Blood 104 98 - 107 mmol/L [facility] Gluc Whole Bld 223 (H) 65 - 199 mg/dL [facility] Comment: Diabetes: >=200 mg/dL plus symp toms. Lactate WB 2.7 (H) 0.5 - 2.2 mmol/L [facility] FIO2 Art 35 % [facility] Flow Art 8.[address] [facility] PF Ratio Art [address] [facility] Specimen Anatomical Collection Method Collection Time Receive d Time (Source) Location / / Volume Laterality Blood 12/09/2021 5:14 AM 2 5:14 EDT AM EDT Iker Cuevas MD CHEMISTRY ORDERABLES Performing Organization Address City/[facility]/[place] [address] POCT Glucose (12/09/2021 4:46 AM EDT) athologist Signature POC Glucose 198 65 - 199 [facility] Comment: Supplemental ranges: <140 mg/dL before meals <180 mg/dL all other times of the day Specimen Anatomical Collection Method Collection Time Receive d Time (Source) Location / / Volume Laterality Blood 12/09/2021 4:46 AM 2 4:46 EDT AM EDT Iker Cuevas MD POINT OF CARE TEST ORDERABLE S Performing Organization Address City/[facility]/[place] [address] (ABNORMAL) POCT Glucose (12/09/2021 3:01 AM EDT) P athologist Signature POC Glucose 225 (H) 65 - 199 [facility] Comment: Supplemental ranges: <140 mg/dL before meals <180 mg/dL all other times of the day Specimen Anatomical Collection Method Collection Time Receive d Time (Source) Location / / Volume Laterality Blood 12/09/2021 3:01 AM 2 3:01 EDT AM EDT Iker Cuevas MD POINT OF CARE TEST ORDERABLE S Performing Organization Address City/[facility]/[place] [address] (ABNORMAL) POCT Glucose (12/08/2021 10:55 PM EDT) athologist Signature POC Glucose 327 (H) 65 - 199 [facility] mg/dL [facility] Comment: Supplemental ranges: <140 mg/dL before meals <180 mg/dL all other times of the day Specimen Anatomical Collection Method Collection Time Receive d Time (Source) Location / / Volume Laterality Blood 12/08/2021 10:55 12/08/2021 PM EDT 10:55 PM EDT Iker Cuevas MD POINT OF CARE TEST ORDERABLE S Performing Organization Address City/[facility]/[place] [address] Heparin (unfractionated) Level (12/08/2021 [...] City/State/[place] [address] (ABNORMAL) Troponin (12/08/2021 10:03 PM EDT) athologist Signature Troponin-T 0.92 (H) 0.00 - [facility] Z[facility]AN 0.00 ng/mL [facility] Comment: The 99th percentile for [...] additional sample may be indicated. Reference: Third [place] Definition of Myocardial Infarction. Journal of the [place] College [employer]iology 2012;60:1581-98 Specimen Anatomical Collection Method Collection Time Receive d Time (Source) Location / / Volume Laterality Blood 12/08/2021 10:03 12/08/2021 PM EDT 10:31 PM EDT Resulting Agency Comment Spec In Lab Iker Cuevas MD CHEMISTRY ORDERABLES Performing Organization Address City/[facility]/[place] [address] (ABNORMAL) POCT Glucose (12/08/2021 8:22 PM EDT) athologist Signature POC Glucose 429 (H) 65 - 199 [place] [facility] mg/dL [facility] Comment: Supplemental ranges: <140 mg/dL before meals <180 mg/dL all other times of the day Specimen Anatomical Collection Method Collection Time Receive d Time (Source) Location / / Volume Laterality Blood 12/08/2021 8:22 PM 2 8:22 EDT PM EDT Iker Cuevas MD POINT OF CARE TEST ORDERABLE S Performing Organization Address City/State/[place] [address] (ABNORMAL) POCT Glucose (12/08/2021 7:06 PM EDT) athologist Signature POC Glucose 442 (H) 65 - 199 [facility] RYAN mg/dL [facility] Comment: Supplemental ranges: <140 mg/dL before meals <180 mg/dL all other times of the day Specimen Anatomical Collection Method Collection Time Receive d Time (Source) Location / / Volume Laterality Blood 12/08/2021 7:06 PM 2 7:06 EDT PM EDT Iker Cuevas MD POINT OF CARE TEST ORDERABLE S Performing Organization Address City/[facility]/[place] [address] Magnesium (12/08/2021 6:02 PM EDT) athologist Signature Magnesium 0.86 0.69 - 1.07 [facility]AN mmol/L [facility] Specimen Anatomical Collection Method Collection Time Receive d Time (Source) Location / / Volume Laterality Blood 12/08/2021 6:02 PM 2 6:36 EDT PM EDT Resulting Agency Comment Spec In Lab Iker Cuevas MD CHEMISTRY ORDERABLES Performing Organization Address City/State/[place] [address] (ABNORMAL) Basic Metabolic Panel (non-fasting) (12/08/2021 6:02 PM EDT) athologist Signature Glucose Lvl 392 (H) 65 - 199 [facility] mg/dL [facility] Comment: Diabetes: >=200 [...] 107 mmol/L [facility] CO2 20 (L) 22 - 31 mmol/L [facility] Anion Gap 16 (H) 5 - 15 mmol/L [facility] Calcium 8.6 8.5 - 10.5 mg/dL [facility] Estimated GFR 47 (L) >=60 mL/min/1.73 m?? [facility] [...] Code Phon e [place] [facility] [place] [address] (ABNORMAL) Differential, Automated (12/08/2021 6:02 PM EDT) [facility] Method Time Signature Neutrophils % 89.5 % [facility] Neutr Abs (ANC) 13.97 (H) 1.70 - [facility] 6.10 [facility] x10(3)/[facility] L LABORATORY Lymphocytes % 3.7 % [facility] Lymphocytes Abs 0.6 (L) 0.9 - 3.2 [facility] x10(3)/[facility] LABORATORY Monocytes % 6.1 % [facility] HOSPITAL LABORATORY Monocyte Abs 1.0 (H) 0.3 - 0.9 [facility] x10(3)/[facility] LABORATORY Eosinophils % 0.0 % [facility] LABORATORY Eosinophils Abs 0.0 0.0 - 0.4 [facility] x10(3)/[facility] LABORATORY Basophils % 0.2 % [facility] LABORATORY Basophils Abs 0.0 0.0 - 0.1 [facility] x10(3)/[facility] LABORATORY Immature Gran % 0.50 % [...] Organization Address City/State/[place] [address] (ABNORMAL) Hemogram (12/08/2021 6:02 PM EDT) Analysis Performed At Patho logist Time Signature WBC 15.6 (H) 4.0 - 9.5 [facility] x[facility](3[facility] LABORATORY RBC 4.05 (L) 4.58 - [place] RYAN 5.54 [facility] x10(6)/[facility] LABORATORY Hemoglobin 11.8 (L) 13.7 - [facility] 16.[facility] g/dL [facility] Hematocrit 35.8 (L) 40.5 - [facility] 48.5 % [facility] MCV 88.4 82.9 - [facility] 93.1 [facility] LABORATORY MCH 29.1 27.5 - [facility] 32.1 pg [facility] MCHC 33.0 32.0 - [facility] 35.7 g/dL [facility] Platelets 178 145 - 357 [facility] x10(3)/[place] LABORATORY RDWSD 49.3 (H) 36.0 - [place] 45.0 [facility] LABORATORY RDWCV 15.1 (H) 11.4 - [facility] 13.8 % [facility] MPV 10.4 7.6 - 12.9 [facility] LABORATORY nRBC % Auto 0.0 % [facility] LABORATORY nRBC Abs Auto 0.000 0.000 - [facility] 0.000 [facility] x10(3)/[facility] LABORATORY Specimen Anatomical Collection Method Collection Time Receive d Time (Source) Location / / Volume Laterality Blood 12/08/2021 6:02 PM 2 6:36 EDT PM EDT Resulting Agency Comment Spec In Lab Morgan [facility]OWN HEMATOLOGY ORDERABLES Performing Organization Address City/State/[place] [address] (ABNORMAL) Troponin (12/08/2021 6:02 PM EDT) P athologist Signature Troponin-T 0.89 (H) 0.00 - [place] 0.00 ng/mL [facility] Comment: The 99th percentile for [...] additional sample may be indicated. Reference: Third [place] Definition of Myocardial Infarction. Journal of the [place] College of Cardiology 2012;60:1581-98 Specimen Anatomical Collection Method Collection Time Receive d Time (Source) Location / / Volume Laterality Blood 12/08/2021 6:02 PM 2 6:36 EDT PM EDT Resulting Agency Comment Spec In Lab Iker Cuevas MD CHEMISTRY ORDERABLES Performing Organization Address City/State/[place] [address] COVID-19 PCR (12/08/2021 5:00 PM EDT) [facility] Method Time Signature SARS-CoV-2 Not Detected Not Detected [facility] RNA PCR [facility] LABORATORY Comment: This result should be [...] using the Simplexa COVID-19 Direct Assay by [employer] as authorized by the FDA issued Emergency Use Authorization (EUA). This assay is intended for In-vitro Diagnostic (IVD) use with nasopharyngeal swabs collected from individuals meeting the CDC criteria for testing. assay is performed based on the instructions for use and additional guid marichuy provided by the FDA. Testing is performed [...] management guidance information are available at [facility] CDC Coronavirus Disease 2019 (COVID-19) webpage under Information fo r Healthcare Professionals (https://www.cdc.gov/coronavirus/2019-nc ov/hcp/index.html). Additional information about this and ot her EUA tests can be found in provider and patient fact sheets at the following FDA website: https://www.fda.gov/medical-devices/iqttkdujpuk-lkittdq-2898-wskhx-02-lymalmmpz- stp-cfdxyhavpovcoq-wtkbfcb-devices/rgxwf-szsmvovpfsd-okop SARS-CoV-2 Source TANGLED YARN SPOOL STRAIGHTENER Swab [facility] LABORATORY Specimen (Source) Anatomical Collection Method Collection Time Re ceived Time Location / / Volume Laterality Nasopharyngeal Swab 12/08/2021 5:00 12/08 PM EDT 6:03 PM EDT Comment: Symptoms->Surveillance Resulting Agency Comment Spec In Lab Iker Cuevas MD MICROBIOLOGY - GENERAL ORDER [place] Performing Organization Address City/State/[place] [address] EKG 12 Lead (12/08/2021 4:40 PM EDT) Component Value Ref Range Test Analysis Performed Pathologis t Method Time At Signature Ventricular rate 78 BPM MUSE SYSTEM Atrial Rate 78 BPM MUSE SYSTEM P-R Interval 152 ms MUSE SYSTEM QRS Duration 96 ms MUSE SYSTEM Q-T Interval 396 ms MUSE SYSTEM QTC Calculated 451 ms MUSE SYSTEM (Bezet) Calculated P [place] 44 degrees MUSE SYSTEM Calculated R [place] -31 degrees MUSE SYSTEM Calculated T [place] 124 degrees MUSE SYSTEM INTERPRETATION Normal sinus rhythm MUSE SYSTEM Left axis deviation ST elevation ??in V1, minimal eleavtion V2 ST & T wave abnormality, consider lateral ischemia Abnormal ECG When compared with ECG of -AUG-2019 14:15, Questionable change in initial forces of Septal leads Confirmed by Jeanie Lucas ([id number]) on 12/09/2021 4:34:49 P M Specimen Anatomical Collection Method Collection Time Receive d Time (Source) Location / / Volume Laterality 12/08/2021 4:40 PM 2 4:34 EDT PM EDT Iker Cuevas MD ECG ORDERABLES Performing Organization Address City/[facility]/ZIP Code Phon e Number MUSE SYSTEM (ABNORMAL) POCT Glucose (12/08/2021 4:34 PM EDT) P athologist Signature POC Glucose 400 (H) 65 - 199 [facility] mg/dL [facility] Comment: Supplemental ranges: <140 mg/dL before meals <180 mg/dL all other times of the day Specimen Anatomical Collection Method Collection Time Receive d Time (Source) Location / / Volume Laterality Blood 12/08/2021 4:34 PM 2 4:34 EDT PM EDT Iker Cuevas MD POINT OF CARE TEST ORDERABLE S Performing Organization Address City/[facility]/ZIP Code Phon e Number [place] [phone] HOSPITAL LAB[address]ATORY [address] documented in this encounter [...] Given 11/23 10:30 AM EDT 300 mcg (CAD DRAFTER) ONCE PRN, Starting on Wed12/10/21 at 1030, [...] Oral, EVERY EVENING, First dose o n Wed12/08/21 at 1730, Until Discontinued, Routine clopidogreL (Plavix) [...] Provider: Admin Adt)1358 (Given - Provider: Emma Garcia, VAMSI) insulin lispro (HumaLOG;Admelog) (100 un it/mL) subcutaneous [...] parameters not met)0743 (Given - Provider: Lilliana Estebna RN - Comment: bg 214) 1-6 Units, [...] Garcia, VAMSI) 0001 (Given - Provider: Derrick Galeas RN)0631 (Given - Provider: Derrick Galeas RN) 12.5 mg, Oral, EVERY 6 HOURS SCHEDULED, First dose on Wed12/08/21 at 1800, Until Discontinued, Routine 1744 (Given - Provider: Emma Garcia RN )2345 (Given - Provider: Barbara Boogie RN) pantoprazole EC (Protonix) tablet 40 mg 0735 (Given - Provider: Emma Garcia RN)0805 ([facility] Hold - Provider: Admin Adt - Reason: Transfer to a Procedural area)0900 (Not Given - Provider: Emma Garcia RN - Reason: See comment - Comment: given before cath) 0835 (Given - Provider: Emma Garcia RN) 0829 (Given - Provider: Lilliana Esteban, VAMSI) 40 mg, Oral, DAILY, First dose on Wed at 1830, Until Discontinued, DO NOT CRUSH OR OPEN, Routine 1230 ([facility] Unhold - Provider: Admin Adt) polyethylene [...] Routine dextrose 10% infusion(Linked Group 2) 08 (SEP Hold - Provider: [...] solution 1 mg( Linked Group 2) 804 (SEP Hold - Provider: Admin Adt - [...] 3 mL 0735 (Given - Provider: Emma Garcia, VAMSI )0805 (SEP Hold - Provider: Admin Adt - Reason: Transfer to a Procedural area)1230 (SEP Unhold - Provider: Admin Adt) 0844 (Given - Provider: Emma Garcia, VAMSI) 3 mL, Nebulization, EVERY 4 HOURS PRN, [...] (Intra-Procedure), Routine niCARdipine (Cardene) (100 mcg/mL) dilution (CAD DRAFTER) (CANCELED) 1030 (Given - Provider: Vitaliy Nobles [...] VICENTE RY 30 MIN PRN, Starting on 12/08/21 at 1639, Until Wed12/12/21 at 1312
For [...] episode. & nbsp; For persistent hypoglycemia, con glassware finisher longer-acting treatment for the duration of the active insulin.
Or glucagon (Glucagen) (1 mg/mL) injection solution 1 mgJump to med 1 mg, Intramuscular, EVERY 30 MIN PRN, S tarting on 12/08/21 at [...]
Routine documented in this encounter Care Teams Building Trades Instructor Relationship Specialty Start Date End Date Lovely Vicente MD PCP - General 04/16/[address] [place] [address] documented as of this encounter
--- OUTSIDE RECORDS SUMMARY | 2022-03-11 11:25 | XMS_ITS | Encounter Summary ---
:1945 Author Organization [facility] [place] [address] Care Team Providers Name Role Phone Lovely Vicente MD Primary Care Provider Encounter Details Date Type Department Care Team Description 12/08/2021 External Results Non-Invasive Cardiology Lab Mar y None [facility] [place] [address] Social History Tobacco Use Types Packs/Day [...] Nobles MD [facility] DR [address] [place], [place] [address] (Wo rk) 05/28/2022 Appointment Cardiology Zulma Dolan MD [facility] [address] [place] [address] (Wo rk) 05/28/2022 Laboratory Appointment Lab 05/28/2022 Office Visit Cardiology Zulma Dolan MD [facility] [place] [address] Liz Poole PA [facility] [place] [address] 06/10/2022 Office Visit Dermatology Laura Scherer MD [facility] ER DR [address]MAT [place], [place] [address] (Wo rk) documented as of [...] filedocumented in this encounter Care Teams Certified Adapted Physical Educator Relationship Specialty Start Date End Date Lovely Vicente MD PCP - General 04/16/[address] [place] [address] documented as of this encounter
--- OUTSIDE RECORDS SUMMARY | 2022-03-11 11:25 | XMS_ITS | Encounter Summary ---
:1945 Author Organization [facility] [place] [address] Care Team Providers Name Role Phone Lovely Vicente MD Primary Care Provider Reason for Referral Diagnostic Test (Routine) - Closed Specialty Diagnoses / Procedures Referred By Contact Refer red To Contact Cardiology Diagnoses Chronic systolic heart failure Danette Maxwell APRN [facility] Non-Inv Card Lab Procedures Echocardiogram Transthoracic(Leb) [facility] [place] [address] [place] [address] Referral ID Status Reason Start Date Expiration Date Visits V isits Requested Authorized [id number] Closed Specialty 07/17/2019 09/14/2019 1 1 Service Requested Reason for Visit Diagnostic Test (Routine) - Closed Specialty Diagnoses / Procedures Referred By Contact Refer red To Contact Cardiology Diagnoses Chronic systolic heart failure Danette Maxwell APRN [facility] Non-Inv Card Lab Procedures Echocardiogram Transthoracic(Leb) [facility] [place] [address] [place] [address] Referral ID Status Reason Start Date Expiration Date Visits V isits Requested Authorized [id number] Closed Specialty 07/17/2019 09/14/2019 1 1 Service Requested Encounter Details Date Type Department Care Team Description 07/28/2019 Hospital Encounter Non-Invasive Chronic s ystolic heart [place] [address] Social History Tobacco Use Types Packs/Day [...] Nobles MD [facility] CARDIOLOGY [place], [place] [address] (Wo rk) 05/28/2022 Appointment Cardiology Zulma Dolan MD [facility] [place], [place] [address] (Wo rk) 05/28/2022 Laboratory Appointment Lab 05/28/2022 Office Visit Cardiology Zulma Dolan MD [facility] [place] [address] Liz Poole PA [facility] [place] [address] 06/10/2022 Office Visit Dermatology Laura Scherer MD [facility] DR [address] [place]LOG[place], [place] 0375 (Wo rk) documented as of this encounter Procedures Procedure Name Priority Date/Time Associated Comments Diagnosis ECHOCARDIOGRAM COMPLETE Routine 07/28/2019 8:19 AM Chronic sys tolic Results for this W CONTRAST EST heart failure procedure are in the results section. documented in this encounter Results ECHOCARDIOGRAM COMPLETE W CONTRAST (07/28/2019 8:19 AM EST) P athologist Signature EF 40 [employer] SYSTEM Specimen (Source) Anatomical Location Collection Method / Collectio n Time Received Time / Laterality Volume 07/28/2019 Narrative [facility] - 07/28/2019 8:38 AM EST Procedure: ?Transthoracic Echocardiogram Patient: ?NATALYA Mccollum ? (Age): 1945(74y) Med Rec#: ? [id number] ?Sex: ?M ? Site Loc: ? [facility] ?Ht / Wt: ??172(cm)/81(kg) Pt. Loc: ?Echo Lab ?BSA: ?1.94 Study Date: ?? 07/28/2019 ?Pt. Type: Outpatient Tape: ? Referring: MARY ELLEN Reading: Ifeanyi Truong ([id number]) Varitypist: Fadumo Flanagan RDCS, FASE Diagnosis: *Chronic systolic [...] E-wave Vmax ?1 ?m/sec ? MV deceleration dgkm057.5 ? msec ? MV A-wave Vmax ?1 [...] ? Pulmonic Valve/Qp:Qs ?Value ?Units (Range) ? TX end-diastolic Vma1.1 ?m/sec ? Wall Motion: Segment Name ?Rest ? Base-Anteroseptal ?? Normal ? Base-Anterior ? Normal ? Base-Anterolateral ??Normal ? Base-Posterolateral Normal ? Base-Inferior ? Akinetic ? Base-Inferoseptal ?? Normal ? Mid-Anteroseptal ?Normal ? Mid-Anterior ?Hypokinetic ? Mid-Anterolateral ?? Normal ? Mid-Posterolateral ??Normal ? Mid-Inferior ?Hypokinetic ? Mid-Inferoseptal ?Normal ? Marcus-Septal ? Normal ? Marcus-Anterior ? Hypokinetic ? Marcus-Lateral ?Normal ? Marcus-Inferior ? Akinetic ? Marcus-Tip ?Hypokinetic ? This report has been electronically sign ed by: _ Ifeanyi Truong M.D. ? 07/28/2019 0 8:38:01 Images reviewed and interpretation verif ied [facility] Procedure Note Ifeanyi Truong MD - 07/28/2019Formatt ing of this note might be different from the original. Procedure: Transthoracic Echocardiogram Patient: NATALYA MCBRIDE(Age): [birth year]74y) Med Rec#: [id number] Sex: M Site Loc: [facility] Ht / Wt: 172(cm)/81(kg) Pt. Loc: Echo Lab BSA: 1.94 Study Date: 07/28/2019 Pt. Type: Outpati ent Tape: Referring: MARY ELLEN Reading: Ifeanyi Truong ([id number]) Varitypist: Fadumo Flanagan RDCS, FASE Diagnosis: *Chronic systolic [...] MV E-wave Vmax 1 m/sec MV deceleration qwwe554.5 msec MV A-wave Vmax 1 m/sec MV [...] 0.7 ratio Pulmonic Valve/Qp:Qs Value Units (Range) TX end-diastolic Vma1.1 m/sec Wall Motion: Segment Name Rest Base-Anteroseptal Normal Base-Anterior Normal Base-Anterolateral Normal Base-Posterolateral Normal Base-Inferior Akinetic Base-Inferoseptal Normal Mid-Anteroseptal Normal Mid-Anterior Hypokinetic Mid-Anterolateral Normal Mid-Posterolateral Normal Mid-Inferior Hypokinetic Mid-Inferoseptal Normal Marcus-Septal Normal Marcus-Anterior Hypokinetic Marcus-Lateral Normal Marcus-Inferior Akinetic Marcus-Tip Hypokinetic This report has been electronically sign ed by: _ Ifeanyi Truong M.D. 07/28/2019 08:38:0 1 Images reviewed and interpretation elvie hwang [facility] Danette Maxwell APRN ECHO [...] documented in this encounter Care Teams Director Treasurer Relationship Specialty Start Date End Date Lovely Vicente MD PCP - General 04/16/[address] [place] [address] documented as of this encounter
--- OUTSIDE RECORDS SUMMARY | 2022-03-11 11:25 | XMS_ITS | Encounter Summary ---
:1945 Author Organization [facility] [place] [address] Care Team Providers Name Role Phone Lovely Vicente MD Primary Care Provider Encounter Details Date Type Department Care Team Description 02/19/2020 Telephone Dermatology at [facility] Ariana Wilder LPN [address] [place] [address] Social History Tobacco Use Types Packs/Day [...] Nobles MD [facility] CARDIOLOGY [place], [place] [address] (Wo rk) 05/28/2022 Appointment Cardiology Zulma Dolan MD [facility] [place], [place] [address] (Wo rk) 05/28/2022 Laboratory Appointment Lab 05/28/2022 Office Visit Cardiology Zulma Dolan MD [facility] [place] [address] Liz Poole PA [facility] [place] [address] 06/10/2022 Office Visit Dermatology Laura Scherer MD [facility] DR [address] [place], [place] [address] (Wo rk) documented as of this encounter Visit Diagnoses Not on filedocumented in this encounter Care Teams Clutch Assembler Relationship Specialty Start Date End Date Lovely Vicente MD PCP - General 04/16/[address] [place] [address] documented as of this encounter
--- OUTSIDE RECORDS SUMMARY | 2022-03-11 11:25 | XMS_ITS | Encounter Summary ---
:1945 Author Organization [facility] Address [facility] [place] [address] Care Team Providers Name Role Phone Lovely Vicente MD Primary Care Provider Encounter Details Date Type Department Care Team Description 01/02/2020 Office Visit Dermatology at [facility] ker[facility]oses; Abdelrahman HOOPER MD History of melanoma; [address] [facility] History of dysplastic nevus; [place] [address] Multiple benign nevi; [phone] [facility] Seborrheic yossi l[place]; RD-DERMATOLGY Skin exam for malignant neoplasm [place], [place] [address] Social History Tobacco Use Types [...] Nobles MD [facility] DR CARLYLE [place], [place] [address] (Wo rk) 05/28/2022 Appointment Cardiology Zulma Dolan MD [facility] [address] [place] 0[address] (Wo rk) 05/28/2022 Laboratory Appointment Lab 05/28/2022 Office Visit Cardiology Zulma Dolan MD [facility] [place] [address] Liz Poole PA [facility] [place] [address] 06/10/2022 Office Visit Dermatology Laura Scherer MD [facility] DR [address] [place], [place] [address] (Wo rk) documented as of [...] skin documented in this encounter Care Teams Freezing Machine Operator Relationship Specialty Start Date End Date Lovely Vicente MD PCP - General 04/16/[address] [place] [address] [address] [place] [address] documented as of this encounter
--- OUTSIDE RECORDS SUMMARY | 2022-03-11 11:25 | XMS_ITS | Encounter Summary ---
:1945 Author Organization [facility] [place] [address] Care Team Providers Name Role Phone Lovely Vicente MD Primary Care Provider Encounter Details Date Type Department Care Team Description 07/28/2019 Laboratory Appointment Lab 3L [facility] [place] [id number] Social History Tobacco Use Types Packs/Day Years [...] Nobles MD [facility] DR CARLYLE [place], [place] [address] (Wo rk) 05/28/2022 Appointment Cardiology Zulma Dolan MD [facility] [address] [place], [place] [address] (Wo rk) 05/28/2022 Laboratory Appointment Lab 05/28/2022 Office Visit Cardiology Zulma Dolan MD [facility] [place] [address] Liz Poole PA [facility] [place] [address] 06/10/2022 Office Visit Dermatology Laura Scherer MD [facility] ER DR [address]-DERMAT OLOGY [place], [place] [address] (Wo rk) documented as of [...] athologist Signature ProBNP 647 (H) <=125 pg/mL [facility]OR[facility] Specimen Anatomical Collection Method Collection Time Receive d Time (Source) Location / / Volume Laterality Blood specimen 07/28/2019 8:36 AM 020 8:46 (specimen) EST AM EST Resulting Agency Comment Spec In Lab Danette Maxwell APRN CHEMISTRY ORDERABLES Performing Organization Address City/State/ZIP [place] [address] (ABNORMAL) Basic Metabolic Panel (non-fasting) (07/28/2019 8:36 AM EST) athologist Signature Glucose Lvl 153 65 - 199 [facility] mg/dL [facility] LABORATORY Comment: Diabetes: >=200 mg/dL plus symp toms BUN 22 (H) 10 - 20 mg/dL [facility] Creatinine 1.05 0.80 - 1.50 mg/dL [facility] [...] mg/dL [facility] Estimated GFR 70 >=60 mL/min/1.73 m?? [facility] Comment: The eGFR was calculated using the CKD-EP I equation. As with all creatinine based estimates of kidney function, eGFR values calculated with the CKD-EPI equation are not accurate in patients wi th acute kidney failure, extremes of body mass or the acutely ill. [email or web address]/[facility] ADAnkf eGFR 81 >=60 mL/min/1.73 m?? [facility] Comment: The eGFR was calculated using the CKD-EP I equation. As with all creatinine based estimates of kidney function, eGFR values calculated with the CKD-EPI equation are not accurate in patients wi th acute kidney failure, extremes of body mass or the acutely ill. [email or web address]/[facility]nkf Specimen Anatomical Collection Method Collection Time Receive d Time (Source) Location / / Volume Laterality Blood specimen 07/28/2019 8:36 AM 020 8:46 (specimen) EST AM EST Resulting Agency Comment Spec In Lab Danette Maxwell APRN CHEMISTRY ORDERABLES Performing Organization Address City/State/ZIP [place] [address] documented in this encounter Visit Diagnoses Diagnosis Chronic systolic heart failure documented in this encounter Care Teams Gang Pusher Relationship Specialty Start Date End Date Lovely Vicente MD PCP - General 04/16/[address] [place] [address] documented as of this encounter
--- OUTSIDE RECORDS SUMMARY | 2022-03-11 11:25 | XMS_ITS | Encounter Summary ---
:1945 Author Organization [facility] [place] [address] Care Team Providers Name Role Phone Lovely Vicente MD Primary Care Provider Encounter Details Date Type Department Care Team Description 12/07/2021 External Results Administration [facility] [place] [address] Social History Tobacco Use Types Packs/Day [...] Nobles MD [facility] DR [place]LE [place], [place] [address] (Wo rk) 05/28/2022 Appointment Cardiology Zulma Dolan MD [facility] [address] [place] 0[address] (Wo rk) 05/28/2022 Laboratory Appointment Lab 05/28/2022 Office Visit Cardiology Zulma Dolan MD [facility] [place] [address] Liz Poole PA [facility] [place] [address] 06/10/2022 Office Visit Dermatology Laura Scherer MD [facility] ER DR [address]-DERMAT [place], [place] [address] (Wo rk) documented [...] filedocumented in this encounter Care Teams Clinical Nurse Relationship Specialty Start Date End Date Lovely Vicente MD PCP - General 04/16/[address] [place] [address] documented as of this encounter
--- OUTSIDE RECORDS SUMMARY | 2022-03-11 11:26 | XMS_ITS | Encounter Summary ---
:1945 Author Organization [facility] [place] [address] Care Team Providers Name Role Phone Lovely Vicente MD Primary Care Provider Encounter Details Date Type Department Care Team Description 01/16/2019 Laboratory Appointment Lab 3L [facility] [place] [id number] Social History Tobacco Use Types Packs/Day Years [...] Vitaliy Nobles MD [facility] DR [address] [place], [place] 0[address] (Wo rk) 05/28/2022 Appointment Cardiology Zulma Dolan MD [facility] [address] [place], [place] [address] (Wo rk) 05/28/2022 Laboratory Appointment Lab 05/28/2022 Office Visit Cardiology Zulma Dolan MD [facility] [place] [address] Liz Poole PA [facility] [place] [address] 06/10/2022 Office Visit Dermatology Laura Scherer MD [facility] ER DR [address]MAT OLOGY [place], [place] 0375 (Wo rk) documented as of [...] Organization Address City/State/[place] [address] (ABNORMAL) Basic Metabolic Panel (non-fasting) (01/16/2019 7:49 AM EDT) athologist Signature Glucose Lvl 105 65 - 199 [facility] mg/dL [facility] LABORATORY Comment: [...] of body mass or the acutely ill. http://Roombeats/[facility] [place] eGFR 79 >=60 mL/min/1.73 m?? [facility] Comment: The eGFR was calculated using the CKD-EP I equation. As with all creatinine based estimates of kidney function, eGFR values calculated with the CKD-EPI equation are not accurate in patients wi th acute kidney failure, extremes of body mass or the acutely ill. http://Roombeats/[facility] [place] Specimen Anatomical Collection Method Collection Time Receive d Time (Source) Location / / Volume Laterality Blood specimen 01/16/2019 7:49 AM 019 7:55 (specimen) EDT AM EDT Resulting Agency Comment Spec In Lab Danette Maxwell APRN CHEMISTRY ORDERABLES Performing Organization Address City/State/[place] [address] documented in this encounter Visit Diagnoses Diagnosis Chronic systolic heart failure documented in this encounter Care Teams Matrix Inspector Relationship Specialty Start Date End Date Lovely Vicente MD PCP - General 04/16/[address] [place] [address] documented as of this encounter
--- OUTSIDE RECORDS SUMMARY | 2022-03-11 11:26 | XMS_ITS | Encounter Summary ---
:1945 Author Organization [facility] Address [facility] [place] [address] Care Team Providers Name Role Phone Lovely Vicente MD Primary Care Provider Reason for Referral Diagnostic Test (Routine) - Closed Specialty Diagnoses / Procedures Referred By Contact Refer red To Contact Cardiology Diagnoses Chronic systolic heart failure Danette Maxwell APRN [facility] Non-Inv Card Lab Procedures Echocardiogram Transthoracic(Leb) [facility] [place] [address] [place] [address] Referral ID Status Reason Start Date Expiration Date Visits V isits Requested Authorized [id number] Closed Specialty 07/17/2019 09/14/2019 1 1 Service Requested Encounter Details Date Type Department Care Team Description 01/16/2019 [place] Visit [place] [facility] [place]ette Maxwell, Chronic systolic heart failu re; [facility] STACIE Cardiomyopathy, ischemic; Drive [facility] Hx of thyroid cancer; [place], [place] DR ELMORE (arteriosclerotic heart disease); [address] CARDIOLOGY MARIA VICTORIA (obstructive sleep apnea) on CPAP [phone] [place], [place] [address] (Wo rk) Social History Tobacco Use Types [...] K+ 4.6 today 6. Post-op atrial fibrillation [id number] (CHF, HTN, DM, vascular disease, thromboembolism) Amiodarone discontinued Continue coumadin INR managed by PCP. 2.1 today 7. PAD 08/06/2017: Right 1st, 2nd, 3rd toe amputation 08/11/2017: Left??femoral arterial access, RLE??angiogram, Balloon angioplasty of R PT with Eleazar 2.5 x 80 10/25/2017: right popliteal-pedal bypass at [facility] 8. Hypothyrodism S/p thyroidectomy for goiter [...] Nobles MD [facility] CARDIOLOGY [place], [place] 0375 (Wo rk) 05/28/2022 Appointment Cardiology Zulma Dolan MD [facility] [place], [place] 0[address] (Wo rk) 05/28/2022 Laboratory Appointment Lab 05/28/2022 Office Visit Cardiology Zulma Dolan MD [facility] [place] [address] Liz Poole PA [facility] [place] [address] 06/10/2022 Office Visit Dermatology Laura Scherer MD [facility] DR [address] OLOGY [place], [place] 0[address] (Wo rk) documented as of this encounter Results ECHOCARDIOGRAM COMPLETE W CONTRAST (07/28/2019 8:19 AM EST) athologist Signature EF 40 HEART[facility] SYSTEM Specimen (Source) Anatomical Location Collection Method / Collectio n Time Received Time / Laterality Volume 07/28/2019 Narrative [facility]ART[facility] SYSTEM - 07/28/2019 8:38 AM EST Procedure: ?Transthoracic Echocardiogram Patient: ?NATALYA Mccollum ? (Age): 1945(74y) Med Rec#: ? [id number] ?Sex: ?M ? [place] Loc: ? [facility] ?Ht / Wt: ??172(cm)/81(kg) Pt. Loc: ?Echo Lab ?BSA: ?1.94 Study Date: ?? 07/28/2019 ?Pt. Type: Outpatient Tape: ? Referring: MARY ELLEN Reading: Ifeanyi Truong ([id number]) Director Of Staff Development: Fadumo Flanagan RDCS, FASE Diagnosis: *Chronic systolic [...] E-wave Vmax ?1 ?m/sec ? MV deceleration rgrx540.5 ? msec ? MV A-wave Vmax ?1 [...] ? Mid-Inferior ?Hypokinetic ? Mid-Inferoseptal ?Normal ? [place]-Septal ? Normal ? [place]-Anterior ? Hypokinetic ? [place]-Lateral ?Normal ? [place]-Inferior ? Akinetic ? [place]-Tip ?Hypokinetic ? This report has been electronically sign ed by: _ Ifeanyi Truong M.D. ? 07/28/2019 0 8:38:01 Images reviewed and interpretation verif ied [facility] Cardiac Ultrasound Laboratory Procedure Note Ifeanyi Truong MD - 07/28/2019Formatt ing of this note might be different from the original. Procedure: Transthoracic Echocardiogram Patient: NATALYA MCBRIDE(Age): [birth year]74y) Med Rec#: [id number] Sex: M Site Loc: [facility] Ht / Wt: 172(cm)/81(kg) Pt. Loc: Echo Lab BSA: 1.94 Study Date: 07/28/2019 Pt. Type: Outpati ent Tape: Referring: MARY ELLEN Reading: Ifeanyi Truong ([id number]) Director Of Staff Development: Fadumo Flanagan RDCS, REGINA Diagnosis: *Chronic systolic (congestive) heart fa perry (I50.22) Indication: CHF BP: 130/47 HR: 70 [...] MV E-wave Vmax 1 m/sec MV deceleration adgb850.5 msec MV A-wave Vmax 1 m/sec MV [...] Normal Mid-Posterolateral Normal Mid-Inferior Hypokinetic Mid-Inferoseptal Normal [place]-Septal Normal [place]-Anterior Hypokinetic [place]-Lateral Normal [place]-Inferior Akinetic [place]-Tip Hypokinetic This report has been electronically sign ed by: _ Ifeanyi Truong M.D. 07/28/2019 08:38:0 1 Images reviewed and interpretation verif ied [facility] Cardiac Ultrasound Laboratory Danette Maxwell APRN ECHO ORDERABLES Performing Organization Address City/State/ZIP Code Phon e Number HEARTLAB SYSTEM (ABNORMAL) Basic Metabolic Panel (non-fasting) (01/16/2019 7:49 AM EDT) P athologist Signature Glucose Lvl 105 65 - 199 [facility] mg/[facility] LABORATORY Comment: Diabetes: >=200 mg/dL plus symp [...] of body mass or the acutely ill. http://HungerTime/DHMCnkf eGFR 79 >=60 mL/min/1.73 m?? [facility] LABORATORY Comment: The eGFR was calculated using the CKD-EP I equation. As with all creatinine based estimates of kidney function, eGFR values calculated with the CKD-EPI equation are not accurate in patients wi th acute kidney failure, extremes of body mass or the acutely ill. http://HungerTime/DHMCnkf Specimen Anatomical Collection Method Collection Time Receive d Time (Source) Location / / Volume Laterality Blood specimen 01/16/2019 7:49 AM 019 7:55 (specimen) EDT AM EDT Resulting Agency Comment Spec In Lab Danette Maxwell APRN CHEMISTRY ORDERABLES Performing Organization Address City/State/[place] [address] (ABNORMAL) pro-Brain Natriuretic Peptide [...] Address City/State/[place] [address] documented in this encounter Visit Diagnoses Diagnosis Chronic systolic heart failure Cardiomyopathy, ischemic Other specified forms of chronic ischemi c heart disease Hx of thyroid cancer Personal history of malignant neoplasm o f thyroid ASHD (arteriosclerotic heart disease) Coronary atherosclerosis of unspecified type of vessel, creek or graft MARIA VICTORIA (obstructive sleep apnea) on CPAP Obstructive sleep apnea (adult) (pediatr ic) Chronic systolic heart failure documented in this encounter Care Teams Table Maker Relationship Specialty Start Date End Date Lovely Vicente MD PCP - General 04/16/[address] [place] [address] [address] [place] [address] documented as of this encounter
--- OUTSIDE RECORDS SUMMARY | 2022-03-11 11:26 | XMS_ITS | Encounter Summary ---
:1945 Author Organization [facility] [place] [address] Care Team Providers Name Role Phone Lovely Vicente MD Primary Care Provider Reason for Visit Reason Onset Date Comments Other 11/11/2017 Please call [facility] Encounter Details Date Type Department Care Team Description 11/11/2017 Telephone [place] [facility] [place]ette Maxwell, Other (Please call [facility] PHLEBOTOMY DIRECTOR [facility] ) [place] [address] CARDIOLOGY [place], [place] 0[address] (Wo rk) Social History Tobacco [...] MD [facility] [address] [place], [place] [address] (Wo rk) 05/28/2022 Appointment Cardiology Zulma Dolan MD [facility] [place], [place] 0[address] (Wo rk) 05/28/2022 Laboratory Appointment Lab 05/28/2022 Office Visit Cardiology Zulma Dolan MD [facility] [place] [address] Liz Poole PA [facility] [place] [address] 06/10/2022 Office Visit Dermatology Laura Scherer MD [facility] DR [address]DERMAT [place], [place] 0[address] (Wo rk) documented as of this encounter Visit Diagnoses Not on filedocumented in this encounter Care Teams Offal Worker Relationship Specialty Start Date End Date Lovely Vicente MD PCP - General 04/16/[address] [place] [address] documented as of this encounter
--- OUTSIDE RECORDS SUMMARY | 2022-03-11 11:26 | XMS_ITS | Encounter Summary ---
:1945 Author Organization [facility] Address [facility] [place] [address] Care Team Providers Name Role Phone Lovely Vicente MD Primary Care Provider Encounter Details Date Type Department Care Team Description 10/07/2017 Office Visit Cardiology at [facility] Danette Maxwell Chronic systolic heart failu re; [facility] A, QUALITY MANAGEMENT COORDINATOR S/P CABG x 3; Drive [facility] On amiodarone therapy; [place], [place] Atrial fibrillation, unspecified type; [address] CARDIOLOGY ASCVD (arteriosclerotic cardiovascular d isease) [phone] [place], [place] [address] Social History Tobacco Use Types [...] - documented in this encounter Progress Notes Arbuckle Danette A, QUALITY MANAGEMENT COORDINATOR - 10/07/2017 11:20 AM EDT ID [...] painful and swollen right foot right d/t SAMPLE PREP TECHNICIAN 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 [...] by Dr. Espino On IV antibiotics at [facility] Today: Mr. Fatima is accompanied [...] continue to see Dr. Bains well at [facility] and follow his wound on his right lower extremity. And she will continue to direct antibiotic treatment. Ihave asked that the echocardiogram results be faxed to Dr. Zurita at [facility]. 1. ASCVD Continue ASA, BB [...] and bone removal by Dr. Aguero at [facility]. Currently receiving IV antibiotics at [facility] ? Plan: 1. A review [...] 03/26/2022 Office Visit Cardiology iVtaliy Nobles MD [facility] [address] [place], [place] 0375 (Wo rk) 05/28/2022 Appointment Cardiology Zulma Dolan MD [facility] Dr [address] [place] 0375 (Wo rk) 05/28/2022 Laboratory Appointment Lab 05/28/2022 Office Visit Cardiology Zulma Dolan MD [facility] [place] [address] Liz Poole PA [facility] [place] [address] 06/10/2022 Office Visit Dermatology Laura Scherer MD [facility] DR TE[address]MAT [place], [place] 0[address] (Wo rk) documented as of this encounter Results (ABNORMAL) Basic Metabolic Panel (non-fasting) (10/07/2017 8:48 AM EDT) P athologist Signature Glucose Lvl 99 65 - 199 [facility] mg/dL [facility] LABORATORY [...] Calcium 8.4 (L) 8.5 - 10.5 mg/dL [facility] LABORATORY Estimated GFR >60 >=60 [facility] LABORATORY Comment: The reported eGFR should be multiplied b y 1.2 for patients. The MDRD is not an appropriate measure o f renal function for patients with body mass extremes or in patients with acute kidney failure. http://Epicsell.SeeControl/DHnkdep http://Selftrade/DHMCnkf Specimen Anatomical Collection Method Collection Time Receive d Time (Source) Location / / Volume Laterality Blood specimen 10/07/2017 8:48 AM 018 8:50 (specimen) EDT AM EDT Resulting Agency Comment Spec In Lab Danette Maxwell APRN CHEMISTRY ORDERABLES Performing Organization Address City/State/ZIP Code Phon e Number [place] [id number] (ABNORMAL) pro-Brain Natriuretic Peptide (10/07/2017 8:48 AM EDT) P athologist Signature ProBNP 1,170 (H) <=125 [facility] pg/mL [facility] LABOR[facility]ORY Specimen Anatomical Collection Method Collection Time Receive d Time (Source) Location / / Volume Laterality Blood specimen 10/07/2017 8:48 AM 018 8:50 (specimen) EDT AM EDT Resulting Agency Comment Spec In Lab Dnaette Maxwell APRN CHEMISTRY ORDERABLES Performing Organization Address City/State/[place] [address] documented in this encounter Visit Diagnoses Diagnosis Chronic systolic heart failure S/P CABG x 3 Postsurgical aortocoronary bypass status On amiodarone therapy Atrial fibrillation, unspecified type ASCVD (arteriosclerotic cardiovascular d isease) Unspecified cardiovascular disease documented in this encounter Care Teams Sales Representative Education Courses Relationship Specialty Start Date End Date Lovely Vicente MD PCP - General 04/16/[address] [place] [address] documented as of this encounter
--- OUTSIDE RECORDS SUMMARY | 2022-03-11 11:26 | XMS_ITS | Encounter Summary ---
:1945 Author Organization [place] [address] Care Team Providers Name Role Phone Lovely Vicente MD Primary Care Provider Reason for Referral Diagnostic Test (Routine) - Specialty Diagnoses / Procedures Referred By Contact Refer red To Contact Cardiology Diagnoses Chronic systolic heart failure Danette Maxwell APRN [facility] Non-Inv Card Lab Procedures Echocardiogram Transthoracic(Leb) [facility] [place] [phone] [place] [address] Referral ID Status Reason Start Date Expiration Visits Visits Date Requested Authorized [id number] Specialty 08/15/2018 08/15/2018 1 1 Service Requested Reason for Visit Diagnostic Test (Routine) - Specialty Diagnoses / Procedures Referred By Contact Nawaf owen To Contact Cardiology Diagnoses Chronic systolic heart failure Danette Maxwell APRN [facility] Non-Inv Card Lab Procedures Echocardiogram Transthoracic(Leb) [facility] [place] [address] [place] [address] Referral ID Status Reason Start Date Expiration Visits Visits Date Requested Authorized [id number] Specialty 08/15/2018 08/15/2018 1 1 Service Requested Encounter Details Date Type Department Care Team Description 08/15/2018 Hospital Encounter Non-Invasive Danette Maxwell Chron ic systolic Cardiology Lab Barbara Gomes APRN heart failure [facility] [place] [address] [place] [phone] [phone] (Work) [phone] Social History Tobacco Use Types Packs/Day Years [...] MD [facility] CARDIOLOGY [place], [place] 0[address] (Wo rk) 05/28/2022 Appointment Cardiology Zulma Dolan MD [facility] [place], [place] 0375 (Wo rk) 05/28/2022 Laboratory Appointment Lab 05/28/2022 Office Visit Cardiology Zulma Dolan MD [facility] [place] [address] Liz Poole PA [facility] [place] [address] 06/10/2022 Office Visit Dermatology Laura Scherer MD [facility] DR [address]-DERMAT OLOG[place], [place] 0375 (Wo rk) documented as [...] Mccollum ? (Age): 1945(73y) Med Rec#: ? [id number] ?Sex: ?M ? Site Loc: ? [facility] ?Ht / Wt: ??172(cm)/81(kg) Pt. Loc: ?Echo Lab ?BSA: ?1.94 Study Date: ?? 08/15/2018 ?Pt. Type: Outpatient Tape: ? Referring: MARY ELLEN Reading: [place] Ortega ([id number]) Automatic Pilot Mechanic: Laura Sargent Diagnosis: *Chronic systolic (congestive) heart [...] E-wave Vmax ?1.2 ?m/sec ? MV deceleration nexd875.4 ? msec ? MV A-wave Vmax ?0.7 [...] ? 08/15/2018 08:17:26 Images reviewed and interpretation verif iewanda [facility] Cardiac Ultrasound Laboratory Procedure Note [place] Ortega MD - 08/15/2018Format ting of this note might be different from the original. Procedure: Transthoracic Echocardiogram Patient: NATALYA MCBRIDE(Age): [birth year]73y) Med Rec#: [id number] Sex: M Site Loc: [facility] Ht / Wt: 172(cm)/81(kg) Pt. Loc: Echo Lab BSA: 1.94 Study Date: 08/15/2018 Pt. Type: Outpati ent Tape: Referring: MARY ELLEN Reading: [place] Ortega ([id number]) Automatic Pilot Mechanic: Laura Sargent Diagnosis: *Chronic systolic (congestive) heart [...] MV E-wave Vmax 1.2 m/sec MV deceleration ojug549.4 msec MV A-wave Vmax 0.7 m/sec MV [...] 08/15/2018 08:17: 26 Images reviewed and interpretation [facility] Cardiac Ultrasound Laboratory Danette Maxwell STACIE [...] Routine documented in this encounter Care Teams Six Horse Hitch Driver Relationship Specialty Start Date End Date Loevly Vicente MD PCP - General 04/16/[address] [place] [address] documented as of this encounter
--- OUTSIDE RECORDS SUMMARY | 2022-03-11 11:26 | XMS_ITS | Encounter Summary ---
:1945 Author Organization [facility] [place] [address] Care Team Providers Name Role Phone Lovely Vicente MD Primary Care Provider Reason for Referral Consultation (Routine) - Specialty Diagnoses / Procedures Referred By Contact Refer red To Contact [facility] Diagnoses Atheroembolism of foot, right Delayed surgical wound healing, subsequent encounter Aurelia Rivera PA [address] [facility] [place] [address] Referral ID Status Reason Start Date Expiration Date Visits V isits Requested Authorized [id number] Consult, 09/08/2017 03/07/2018 1 1 Test & Treat Reason for Visit Reason Comments Wound Check My foot hurts Encounter Details Date Type Department Care Team Description 09/07/2017 Office Visit Vascular Surgery at MiguelAurelia PA Atheroembolism of foot, right; [facility] [address] [facility] Delayed surgical wound healing, subseque nt encounter [facility] [place] [address] [phone] Social History Tobacco Use Types Packs/Day Years [...] at home for VAC dressing changes from [facility]. Since his last visit his right forefoot wound [facility] [...] [facility] [place] [facility] MA[facility] OR ??? PRO AMPUTATION FOOT, TRANSMETATARSAL Right 08/09/2017 AMPUTATION, TRANSMETATARSAL (WRVU 12.71) performed by Yonathan Smith MD [facility] ??? PRO DRESSING CHANGE UNDER ANESTHESIA Right 08/11/2017 (MSURG) DRESSING CHANGE (FOR OTHER THAN IVAN) UNDER ANES. (WRVU 0.86) performed by Lamar Smith MD at [facility] MAIN OR ??? PRO ENDOSCOPY W/VIDEO-ASST VEIN HARVEST, CABG Right 07/07/2017 ENDOSCOPIC HARVEST VEIN(S) FOR CABG (WRVU 0.31) performed by Yuan Retana MD at [facility] MAIN OR ??? PRO THYROIDECTOMY 03/28/2013 THYROIDECTOMY, TOTAL OR COMPLETE performed by Manny Mcknight MD at [facility] OR Social Hx: Social History Substance [...] Vitaliy Nobles MD [facility] [address] [place], [place] 0[address] (Wo rk) 05/28/2022 Appointment Cardiology Zulma Dolan MD [facility] [place], [place] 0[address] (Wo rk) 05/28/2022 Laboratory Appointment Lab 05/28/2022 Office Visit Cardiology Zulma Dolan MD [facility] [place] [address] Liz Poole PA [facility] [place] [address] 06/10/2022 Office Visit Dermatology Laura Scherer MD [facility] DR TEJA GR[address] [place]LOG[place], [place] 0[address] (Wo rk) Scheduled Referrals Name Type Priority Associated Diagnoses Order S chedule Referral to Wound Outpatient Referral Routine Atheroembolism o f foot, Ordered: Clinic right 09/08/2017 Delayed surgical wound healing, subsequent encounter documented as of this encounter Visit Diagnoses Diagnosis Atheroembolism of foot, right Delayed surgical wound healing, subseque nt encounter documented in this encounter Care Teams Photolithographic Stripper Relationship Specialty Start Date End Date Lovely Vicente MD PCP - General 04/16/15 [address] [facility] [address] [place] [address] documented as of this encounter
--- OUTSIDE RECORDS SUMMARY | 2022-03-11 11:26 | XMS_ITS | Encounter Summary ---
:1945 Author Organization [facility] [place] [address] Care Team Providers Name Role Phone Lovely Vicente MD Primary Care Provider Encounter Details Date Type Department Care Team Description 08/26/2018 Transcribe Orders Laboratory Lovely Vicente, Deferred diagnosis [facility] on axis I [address] [address] [place], [place] [phone] Social History Tobacco Use Types Packs/Day Years [...] Vitaliy Nobles MD [facility] [address] [place] [address] (Wo rk) 05/28/2022 Appointment Cardiology Zulma Dolan MD [facility] [address] [place] [address] (Wo rk) 05/28/2022 Laboratory Appointment Lab 05/28/2022 Office Visit Cardiology Zulma Dolan MD [facility] [place] [address] Liz Poole PA [facility] [place] [address] 06/10/2022 Office Visit Dermatology Laura Scherer MD [facility] [address]MAT [place], [place] 0[address] (Wo rk) documented as of this encounter Visit Diagnoses Diagnosis Deferred diagnosis on axis I Other unknown and unspecified cause of m orbidity or mortality documented in this encounter Care Teams Sales Analytics Manager Relationship Specialty Start Date End Date Lovely Vicente MD PCP - General 04/16/[address] [place] [address] documented as of this encounter
--- OUTSIDE RECORDS SUMMARY | 2022-03-11 11:26 | XMS_ITS | Encounter Summary ---
:1945 Author Organization [facility] [place] [address] Care Team Providers Name Role Phone Lovely Vicente MD Primary Care Provider Reason for Referral Diagnostic Test (Routine) - Closed Specialty Diagnoses / Procedures Referred By Contact Refer red To Contact Cardiology Diagnoses Ischemic cardiomyopathy Acute on chronic systolic congestive heart failure Danette Maxwell APRN [facility] System Non-Inv Card Lab Procedures Echocardiogram Transthoracic(Leb) [facility] [place] [address] [place] [address] Referral ID Status Reason Start Date Expiration Date Visits V isits Requested Authorized [id number] Closed Specialty 08/30/2017 08/30/2018 1 1 Service Requested Reason for Visit Diagnostic Test (Routine) - Closed Specialty Diagnoses / Procedures Referred By Contact Refer red To Contact Cardiology Diagnoses Ischemic cardiomyopathy Acute on chronic systolic congestive heart failure Danette Maxwell APRN Health System Non-Inv Card Lab Procedures Echocardiogram Transthoracic(Leb) [facility] [place] [address] [place] [address] Referral ID Status Reason Start Date Expiration Date Visits V isits Requested Authorized [id number] Closed Specialty 08/30/2017 08/30/2018 1 1 Service Requested Encounter Details Date Type Department Care Team Description 10/07/2017 Hospital Encounter Non-Invasive Ischemic cardiomyopathy; Cardiology Lab Barbara Craig on chronic systolic [place] [address] Social History Tobacco Use Types Packs/Day [...] [facility] CARDIOLOGY [place], [place] [address] (Wo rk) 05/28/2022 Appointment Cardiology Zulma Dolan MD [facility] [place], [place] [address] (Wo rk) 05/28/2022 Laboratory Appointment Lab 05/28/2022 Office Visit Cardiology Zulma Dolan MD [facility] [place] [address] Liz Poole PA [facility] [place] [address] 06/10/2022 Office Visit Dermatology Laura Scherer MD [facility] [address] [place], [place] [address] (Wo rk) documented as [...] T Procedure: ?Transthoracic Echocardiogram Patient: ?NATALYA GREGORY Mccollum ? (Age): 1945(72y) Med Rec#: ? [id number] ?Sex: ?M ? Site Loc: ? [facility] ?Ht / Wt: ??173(cm)/82(kg) Pt. Loc: ?Echo Lab ?BSA: ?1.96 Study Date: ?? 10/07/2017 ?Pt. Type: Outpatient Tape: ? Referring: Danette Maxwell Reading: Iker Cuevas ([id number]) Placing Judge: Yonathan Bocanegra Diagnosis: *ICD-10-PCS Ischemic cardiomyopathy (I2 [...] E-wave Vmax ?1.2 ?m/sec ? MV deceleration [id number] ?msec ? MV A-wave Vmax ?1 ?m/sec [...] ? Mid-Inferior ?Hypokinetic ? Mid-Inferoseptal ?Hypokinetic ? [place]-Septal ? Akinetic ? [place]-Anterior ? Hypokinetic ? [place]-Lateral ?Hypokinetic ? [place]-Inferior ? Hypokinetic ? [place]-Tip ?Akinetic ? This report has been electronically sign ed by: _ Iker Cuevas M.D. ? 10/07/2017 11:12:34 Images reviewed and interpretation verif ied [facility] Cardiac Ultrasound Laboratory Procedure Note Iker Cuevas MD - 10/07/2017Formatti ng of this note might be different from the original. Procedure: Transthoracic Echocardiogram Patient: NATALYA MCBRIDE(Age): [birth year]72y) Med Rec#: [id number] Sex: M Site Loc: [facility] Ht / Wt: 173(cm)/82(kg) Pt. Loc: Echo Lab BSA: 1.96 Study Date: 10/07/2017 Pt. Type: Outpati ent Tape: Referring: Danette Maxwell Reading: Iker Cuevas ([id number]) Placing Judge: Yonathan Bocanegra Diagnosis: *ICD-10-PCS Ischemic cardiomyopathy (I2 [...] MV E-wave Vmax 1.2 m/sec MV deceleration [id number] msec MV A-wave Vmax 1 m/sec MV [...] Akinetic Mid-Posterolateral Hypokinetic Mid-Inferior Hypokinetic Mid-Inferoseptal Hypokinetic [place]-Septal Akinetic [place]-Anterior Hypokinetic [place]-Lateral Hypokinetic [place]-Inferior Hypokinetic [place]-Tip Akinetic This report has been electronically sign ed by: _ Iker Cuevas M.D. 10/07/2017 11:12 :34 Images reviewed and interpretation verif ied [facility] Cardiac Ultrasound Laboratory Danette Maxwell APRN ECHO [...] Routine documented in this encounter Care Teams Frame Changer Relationship Specialty Start Date End Date Lovely Vicente MD PCP - General 04/16/[address] [place] [address] [address] [place] [address] documented as of this encounter
--- OUTSIDE RECORDS SUMMARY | 2022-03-11 11:26 | XMS_ITS | Encounter Summary ---
:1945 Author Organization [facility] [place] [address] Care Team Providers Name Role Phone Lovely Vicente MD Primary Care Provider Encounter Details Date Type Department Care Team Description 09/07/2017 Office Visit Endocrinology at [facility] Maria Ines Stallings of [facility] MD [place] [address] CENTER [phone] ENDOCRINOLOGY DEPT [place], [place] [address] Social History Tobacco Use [...] [facility] ER DR TADEO [place], [place] 0[address] (Wo rk) 05/28/2022 Appointment Cardiology Zulma Dolan MD [facility] [place], [place] [address] (Wo rk) 05/28/2022 Laboratory Appointment Lab 05/28/2022 Office Visit Cardiology Zulma Dolan MD [facility] [place] [address] Liz Poole PA [facility] [place] [address] 06/10/2022 Office Visit Dermatology Laura Scherer MD [facility] [address] [place], [place] [address] (Wo rk) documented as of this encounter Visit Diagnoses Diagnosis Hx of papillary thyroid carcinoma Personal history of malignant neoplasm o f thyroid documented in this encounter Care Teams Analytical Laboratory Technician Relationship Specialty Start Date End Date Lovely Vicente MD PCP - General 04/16/[address] [place] [address] documented as of this encounter
--- OUTSIDE RECORDS SUMMARY | 2022-03-11 11:26 | XMS_ITS | Encounter Summary ---
:1945 [place] [address] Care Team Providers Name Role Phone Lovely Vicente MD Primary Care Provider Encounter Details Date Type Department Care Team Description 07/12/2019 Office Visit Dermatology at [facility], Rigoberto Yarbrough (actinic keratosis); MD SHAY Quick III (seborrheic keratosis); [address] [facility] Multiple benign nevi; [place] [address] History of melanoma [phone] [facility] [place], [place] [address] Social History Tobacco Use Types [...] Rigoberto Garcia MD Section of Dermatology [facility] documented in this encounter Plan of Treatment Upcoming Encounters Date Type Specialty Care Team Description 03/26/2022 Office Visit Cardiology Vitaliy Nobles MD [facility] [address] [place], [place] 0[address] (Wo rk) 05/28/2022 Appointment Cardiology Zulma Dolan MD [facility] [place], [place] 0[address] (Wo rk) 05/28/2022 Laboratory Appointment Lab 05/28/2022 Office Visit Cardiology Zulma Dolan MD [facility] [place] [address] Liz Poole PA [facility] [place] [address] 06/10/2022 Office Visit Dermatology Laura Scherer MD [facility] DR [address] [place], [place] 0[address] (Wo rk) documented as of this encounter Visit Diagnoses Diagnosis AK (actinic keratosis) Actinic keratosis SK (seborrheic keratosis) Other seborrheic keratosis Multiple benign nevi Benign neoplasm of skin, site unspecifie d History of melanoma Personal history of malignant melanoma o f skin documented in this encounter Care Teams Prime Minister Relationship Specialty Start Date End Date Lovely Vicente MD PCP - General 04/16/[address] [place] [address] documented as of this encounter
--- OUTSIDE RECORDS SUMMARY | 2022-03-11 11:26 | XMS_ITS | Encounter Summary ---
:1945 Author Organization [facility] [place] [address] Care Team Providers Name Role Phone Lovely Vicente MD Primary Care Provider Encounter Details Date Type Department Care Team Description 09/07/2017 Laboratory Appointment Lab 3L [facility] Hx of [facility] [place] [address] Social History Tobacco Use Types Packs/Day Years [...] MD [facility] DR [place]LE [place], [place] [address] (Wo rk) 05/28/2022 Appointment Cardiology Zulma Dolan MD [facility] [address] [place] [address] (Wo rk) 05/28/2022 Laboratory Appointment Lab 05/28/2022 Office Visit Cardiology Zulma Dolan MD [facility] [place] [address] Liz Poole PA [facility] [place] [address] 06/10/2022 Office Visit Dermatology Laura Scherer MD [facility] ER DR [address]MAT [place], [place] [address] (Wo rk) documented as of [...] PM EST) athologist Signature Thyroglobulin 1.4 <=54.9 [facility] ng/mL [facility] Comment: Thyroglobulin levels may be [...] Ab <20.0 0.0 - 40.0 IU/mL [facility] Comment: Assay performed is the [...] Address City/State/ZIP Code Phon e Number [place] [id number] TSH (09/07/2017 2:41 PM EST) P athologist Signature TSH 3.93 0.27 - 4.20 [facility] mlU/ML [facility] Specimen Anatomical Collection Method Collection Time Receive d Time (Source) Location / / Volume Laterality Blood specimen 09/07/2017 2:41 PM 018 2:46 (specimen) EST PM EST Resulting Agency Comment Spec In Lab Luz Prescott MD CHEMISTRY ORDERABLES Performing Organization Address City/State/[place] [address] documented in this encounter Visit Diagnoses Diagnosis Hx of papillary thyroid carcinoma Personal history of malignant neoplasm o f thyroid documented in this encounter Care Teams Spool Maker Relationship Specialty Start Date End Date Lovely Vicente MD PCP - General 04/16/[address] [place] [address] documented as of this encounter
--- OUTSIDE RECORDS SUMMARY | 2022-03-11 11:26 | XMS_ITS | Encounter Summary ---
:1945 Author Organization [facility] [place] [address] Care Team Providers Name Role Phone Lovely Vicente MD Primary Care Provider Encounter Details Date Type Department Care Team Description 09/03/2017 Telephone Vascular Surgery at [facility] Ninfa Clark, [place] [address] Social History Tobacco Use Types Packs/Day [...] help with the discomfort of the change. Fine Arts Packer told the [facility] that I would ask [...] MD [facility] [address] [place], [place] [address] (Wo rk) 05/28/2022 Appointment Cardiology Zulma Dolan MD [facility] [place], [place] [address] (Wo rk) 05/28/2022 Laboratory Appointment Lab 05/28/2022 Office Visit Cardiology Zulma Dolan MD [facility] [place] [address] Liz Poole PA [facility] [place] [address] 06/10/2022 Office Visit Dermatology Laura Scherer MD [facility] DR [address]MAT [place], [place] [address] (Wo rk) documented as of this encounter Visit Diagnoses Not on filedocumented in this encounter Care Teams Analytics Specialist Relationship Specialty Start Date End Date Lovely Vicente MD PCP - General 04/16/[address] [place] [address] documented as of this encounter
--- OUTSIDE RECORDS SUMMARY | 2022-03-11 11:26 | XMS_ITS | Encounter Summary ---
:1945 Author Organization [facility] [place] [address] Care Team Providers Name Role Phone Lovely Vicente MD Primary Care Provider Reason for Visit Reason Onset Date Comments Other 03/24/2019 cardiac clearance ne eded Encounter Details Date Type Department Care Team Description 03/24/2019 Telephone Cardiology at [facility] Danette Maxwell, Other (cardiac [facility] GENERAL SCRAP WORKER clearance needed) [place] [address] CARDIOLOGY [place], [place] [address] (Wo rk) Social History Tobacco [...] AM EDT Leonela from [facility] [place] called requesting cardiac clearance for this patient who is to have a colonoscopy on 04/04/19. He is on anticoagulation and they will need to bridge him. Their phone # [phone], fax# [phone]. Thank you. documented in this encounter Plan of Treatment Upcoming Encounters Date Type Specialty Care Team Description 03/26/2022 Office Visit Cardiology Vitaliy Nobles MD [facility] [address] [place], [place] [address] (Wo rk) 05/28/2022 Appointment Cardiology Zulma Dolan MD [facility] [place], [place] [address] (Wo rk) 05/28/2022 Laboratory Appointment Lab 05/28/2022 Office Visit Cardiology Zulma Dolan MD [facility] [place] [address] Liz Poole PA [facility] [place] [address] 06/10/2022 Office Visit Dermatology Laura Scherer MD [facility] DR [address] [place], [place] [address] (Wo rk) documented as of this encounter Visit Diagnoses Not on filedocumented in this encounter Care Teams Hr Leader Relationship Specialty Start Date End Date Lovely Vicente MD PCP - General 04/16/[address] [place] [address] documented as of this encounter
--- OUTSIDE RECORDS SUMMARY | 2022-03-11 11:26 | XMS_ITS | Encounter Summary ---
:1945 Author Organization [place] [address] Care Team Providers Name Role Phone Lovely Vicente MD Primary Care Provider Encounter Details Date Type Department Care Team Description 08/30/2017 [facility] ischemia [facility] [address] [place], [place] VASCULAR SURGERY [address] [place] [address] [phone] Social History Tobacco Use Types Packs/Day Years [...] Smith MD - 08/30/2017 2:00 PM EST [facility] staff: Patient returns. He is doing [...] Nobles MD [facility] DR THOM[address] [place], [place] [address] (Wo rk) 05/28/2022 Appointment Cardiology Zulma Dolan MD [facility] [address] [place] [place] 0[address] (Wo rk) 05/28/2022 Laboratory Appointment Lab 05/28/2022 Office Visit Cardiology Zulma Dolan MD [facility] [place] [address] Liz Poole PA [facility] [place] [address] 06/10/2022 Office Visit Dermatology Laura Scherer MD [facility] ER DR [address] [place], [place] [address] (Wo rk) documented as of this encounter Visit Diagnoses Diagnosis Critical lower limb ischemia Unspecified circulatory system disorder documented in this encounter Care Teams Chief Meter Reader Relationship Specialty Start Date End Date Lovely Vicente MD PCP - General 04/16/15 [facility] [address] [place] [address] documented as of this encounter
--- OUTSIDE RECORDS SUMMARY | 2022-03-11 11:26 | XMS_ITS | Encounter Summary ---
:1945 Author Organization [facility] [place] [address] Care Team Providers Name Role Phone Lovely Vciente MD Primary Care Provider Encounter Details Date Type Department Care Team Description 11/29/2017 Laboratory Lab 3L Barbara Wiseman systoli c congestive heart failure; Appointment [facility] ASCVD (ar teriosclerotic cardiovascular disease); Hospital Cardiomyopathy, [place] [address] Social History Tobacco Use Types [...] Nobles MD [facility] DR TADE[address] [place], [place] [address] (Wo rk) 05/28/2022 Appointment Cardiology Zulma Dolan MD [facility] Dr [place], [place] [address] (Wo rk) 05/28/2022 Laboratory Appointment Lab 05/28/2022 Office Visit Cardiology TrudiZulma Knowles MD [facility] [place] [address] Liz Poole PA [facility] [place] [address] 06/10/2022 Office Visit Dermatology Laura Scherer MD [facility] ER DR [address]MAT [place], [place] [address] (Wo rk) documented as of [...] 12.5 [facility] LABORATORY INR 2.1 [facility] Comment: An INR [...] Organization Address City/State/Z[place] [address] (ABNORMAL) Basic Metabolic Panel (non-fasting) (11/29/2017 8:22 AM EDT) P athologist Signature Glucose Lvl 217 (H) 65 - 199 [facility] mg/dL [facility] Comment: Diabetes: >=200 mg/dL plus symp toms BUN 26 (H) 10 - 20 mg/dL [facility] Creatinine 0.96 0.80 - 1.50 mg/dL [facility] Sodium 137 135 - 145 mmol/L [facility] Potassium 4.1 3.5 - 5.0 mmol/L [facility] Estimated GFR >60 >=60 [facility] Comment: The reported eGFR should be multiplied b y 1.2 for patients. The MDRD is not an appropriate measure o f renal function for patients with body mass extremes or in patients with acute kidney failure. http://eSKY.pl.Trly Uniq/DHnkdep http://Lily [employer] Strum/DHMCnkf Specimen Anatomical Collection Method Collection Time Receive d Time (Source) Location / / Volume Laterality Blood specimen 11/29/2017 8:22 AM 018 8:29 (specimen) EDT AM EDT Resulting Agency Comment Spec In Lab Danette Maxwell CHANGE MANAGEMENT ANALYST CHEMISTRY ORDERABLES Performing Organization Address City/State/[place] [address] (ABNORMAL) pro-Brain Natriuretic Peptide (11/29/2017 8:22 AM EDT) P athologist Signature ProBNP 1,769 (H) <=125 [facility] pg/mL [facility] Specimen Anatomical Collection Method Collection Time Receive d Time (Source) Location / / Volume Laterality Blood specimen 11/29/2017 8:22 AM 018 8:29 (specimen) EDT AM EDT Resulting Agency Comment Spec In Lab Danette Maxwell CHANGE MANAGEMENT ANALYST CHEMISTRY ORDERABLES Performing Organization Address City/[facility]/ZIP [place] [address] Lavender Tube HOLD (11/29/2017 8:14 AM EDT) Patholo gist Method Time Signature Lavender Hold Sample in [facility]. [facility] Specimen Anatomical Collection Method Collection Time Receive d Time (Source) Location / / Volume Laterality Blood specimen No Charge / 11/29/2017 8:14 AM 018 8:29 (specimen) Unknown EDT AM EDT Lovely Vicente MD HEMATOLOGY ORDERABLES Performing Organization Address City/State/Z[place] [address] documented in this encounter Visit Diagnoses Diagnosis Chronic systolic congestive heart failur e Chronic systolic heart failure ASCVD (arteriosclerotic cardiovascular d isease) Unspecified cardiovascular disease Cardiomyopathy, ischemic Other specified forms of chronic ischemi c heart disease documented in this encounter Care Teams Locomotive Engineer Relationship Specialty Start Date End Date Lovely Vicente MD PCP - General 04/16/[address] [place] [address] documented as of this encounter
--- OUTSIDE RECORDS SUMMARY | 2022-03-11 11:26 | XMS_ITS | Encounter Summary ---
:1945 Author Organization [facility] Address [facility] [place] [address] Care Team Providers Name Role Phone Lovely Vicente MD Primary Care Provider Reason for Referral Diagnostic Test (Routine) - Specialty Diagnoses / Procedures Referred By Contact Refer red To Contact Cardiology Diagnoses Chronic systolic heart failure Danette Maxwell APRN [facility] Non-Inv Card Lab Procedures Echocardiogram Transthoracic(Leb) [facility] [place] [address] [place] [address] Referral ID Status Reason Start Date Expiration Visits Visits Date Requested Authorized [id number] Specialty 08/15/2018 08/15/2018 1 1 Service Requested Encounter Details Date Type Department Care Team Description 04/18/2018 Office Visit Cardiology at [facility] Danette Maxwell Chronic systolic heart failu re; [facility] STACIE Gomes On amiodarone therapy; [facility] Ischemic cardiomyopathy; [place], [place] DR ONOFRE (arteriosclerotic cardiovascular d isease) [phone] CARDIOLOGY [phone] [place], [place] [address] Social History Tobacco Use Types Packs/Day Years [...] in this encounter Progress Notes Danette Maxwell, METAL AND PLASTIC HEATER - 04/18/2018 10:40 AM EDT ID and [...] 81 10/25/2017: right popliteal-pedal bypass at [facility] ? Plan: 1. A review [...] Vitaliy Nobles MD [facility] CARDIOLOGY [place], [place] [address] (Wo rk) 05/28/2022 Appointment Cardiology Zulma Dolan MD [facility] [place], [place] [address] (Wo rk) 05/28/2022 Laboratory Appointment Lab 05/28/2022 Office Visit Cardiology Zulma Dolan MD [facility] [place] [address] Liz Poole PA [facility] [place] [address] 06/10/2022 Office Visit Dermatology Laura Scherer MD [facility] DR [address]-DERMAT O[place], [place] [address] (Wo rk) documented as of this encounter Results ECHOCARDIOGRAM COMPLETE W CONTRAST (08/15/2018 7:55 AM EST) P athologist Signature EF 35 HEARTHeatGenie SYSTEM Specimen (Source) Anatomical Location Collection Method / Collectio n Time Received Time / Laterality Volume 08/15/2018 Narrative [facility] - 08/15/2018 8:18 AM EST Procedure: ?Transthoracic Echocardiogram Patient: ?NATALYA JENKINS E ? (Age): 1945(73y) Med Rec#: ? [id number] ?Sex: ?M ? Site Loc: ? [facility] ?Ht / Wt: ??172(cm)/81(kg) Pt. Loc: ?Echo Lab ?BSA: ?1.94 Study Date: ?? 08/15/2018 ?Pt. Type: Outpatient Tape: ? Referring: MARY ELLEN Reading: Scott Ortega ([id number]) Flying Ii Instructor: Laura Sargent Diagnosis: *Chronic systolic (congestive) heart [...] E-wave Vmax ?1.2 ?m/sec ? MV deceleration aopk855.4 ? msec ? MV A-wave Vmax ?0.7 [...] Mid-Inferior ?Hypokinetic ? Mid-Inferoseptal ?Hypokinetic ? [place]-Septal ? Akinetic ? [place]-Anterior ? Hypokinetic ? [place]-Lateral ?Akinetic ? [place]-Inferior ? Hypokinetic ? [place]-Tip ?Akinetic ? This report has been electronically sign ed by: _ Scott Ortega M.D. ? 08/15/2018 08:17:26 Images reviewed and interpretation verif ied [facility] Cardiac Ultrasound Laboratory Procedure Note Scott Ortega MD - 08/15/2018Format ting of this note might be different from the original. Procedure: Transthoracic Echocardiogram Patient: NATALYA MCBRIDE(Age): [birth year]73y) Med Rec#: [id number] Sex: M Site Loc: [facility] Ht / Wt: 172(cm)/81(kg) Pt. Loc: Echo Lab BSA: 1.94 Study Date: 08/15/2018 Pt. Type: Outpati ent Tape: Referring: MARY ELLEN Reading: Scott Ortega ([id number]) Flying Ii Instructor: Laura Sargent Diagnosis: *Chronic systolic (congestive) heart [...] MV E-wave Vmax 1.2 m/sec MV deceleration [id number] msec MV A-wave Vmax 0.7 m/sec MV [...] Mid-Posterolateral Akinetic Mid-Inferior Hypokinetic Mid-Inferoseptal Hypokinetic [place]-Septal Akinetic [place]-Anterior Hypokinetic [place]-Lateral Akinetic [place]-Inferior Hypokinetic [place]-Tip Akinetic This report has been electronically sign ed by: _ Scott Ortega M.D. 08/15/2018 08:17: 26 Images reviewed and interpretation elvie hwang [facility] Cardiac Ultrasound Laboratory Danette Maxwell APRN ECHO ORDERABLES Performing Organization Address City/State/ZIP Code Phon e Number [facility] (ABNORMAL) Basic Metabolic Panel (non-fasting) (04/18/2018 9:19 AM EDT) P athologist Signature Glucose Lvl 167 65 - 199 [facility] mg/dL [facility] Comment: Diabetes: >=200 mg/dL plus symp toms BUN 18 10 - 20 mg/dL [facility] Creatinine 1.19 0.80 - 1.50 [...] Gap 23 (H) 5 - 15 mmol/L [facility] [...] of body mass or the acutely ill. http://BeDo/[facility] eGFR 70 >=60 mL/min/1.73 m?? [facility] Comment: The eGFR was calculated using the CKD-EP I equation. As with all creatinine based estimates of kidney function, eGFR values calculated with the CKD-EPI equation are not accurate in patients wi th acute kidney failure, extremes of body mass or the acutely ill. http://BeDo/[facility] Specimen Anatomical Collection Method Collection Time Receive d Time (Source) Location / / Volume Laterality Blood specimen 04/18/2018 9:19 AM 018 9:34 (specimen) EDT AM EDT Resulting Agency Comment Spec In Lab Danette Maxwell APRN CHEMISTRY ORDERABLES Performing Organization Address City/State/ZIP Code Phon e Number [address] (ABNORMAL) pro-Brain Natriuretic Peptide (04/18/2018 9:19 AM EDT) P athologist Signature ProBNP 2,199 (H) <=125 [facility] pg/mL [facility] Specimen Anatomical Collection Method Collection Time Receive d Time (Source) Location / / Volume Laterality Blood specimen 04/18/2018 9:19 AM 018 9:34 (specimen) EDT AM EDT Resulting Agency Comment Spec In Lab Danette Maxwell APRN CHEMISTRY ORDERABLES Performing Organization Address City/[facility]/[place]IP [place] [address] documented in this encounter Visit Diagnoses Diagnosis Chronic systolic heart failure On amiodarone therapy Ischemic cardiomyopathy Other specified forms of chronic ischemi c heart disease ASCVD (arteriosclerotic cardiovascular d isease) Unspecified cardiovascular disease Chronic systolic heart failure documented in this encounter Care Teams Etcher Enameling Relationship Specialty Start Date End Date Lovely Vicente MD PCP - General 04/16/[address] [place] [address] documented as of this encounter
--- OUTSIDE RECORDS SUMMARY | 2022-03-11 11:26 | XMS_ITS | Encounter Summary ---
:1945 Author Organization [place] [address] Care Team Providers Name Role Phone Lovely Vicente MD Primary Care Provider Reason for Visit Reason Onset Date Comments Follow-up 07/13/2018 amiodarone discontin ued Encounter Details Date Type Department Care Team Description 07/13/2018 Telephone Cardiology at [facility] Martha Comer, Follow-up (amiodarone [facility] RN discontin ued) [place] [address] Social History Tobacco Use Types Packs/Day [...] RN - 07/13/2018 8:57 AM EST Per RETAIL ACCOUNT SPECIALIST Hans call placed to the home number for the pt. confirmed that the pt is still taking the amiodarone. Pt is to stop the amiodarone. Pt taking it for post op a-fib, therapy was supposed to be for 30 days. Message given to his . She will give him the message and will have him call with any questions. Call placed to the [facility] pharmacy in [place] to discontinue it there as well. Med list updated. documented in this encounter Plan of Treatment Upcoming Encounters Date Type Specialty Care Team Description 03/26/2022 Office Visit Cardiology Vitaliy Nobles MD [facility] [address] TADE[address] [place], [place] [address] (Wo rk) 05/28/2022 Appointment Cardiology Zulma Dolan MD [facility] [place], [place] [address] (Wo rk) 05/28/2022 Laboratory Appointment Lab 05/28/2022 Office Visit Cardiology Zulma Dolan MD [facility] [place] [address] Liz Poole PA [facility] [place] [address] 06/10/2022 Office Visit Dermatology Laura Scherer MD [facility] DR [address]DERMAT [place], [place] [address] (Wo rk) documented as of this encounter Visit Diagnoses Not on filedocumented in this encounter Care Teams Clay Maker Relationship Specialty Start Date End Date Lovely Vicente MD PCP - General 04/16/[address] [place] [address] documented as of this encounter
--- OUTSIDE RECORDS SUMMARY | 2022-03-11 11:26 | XMS_ITS | Encounter Summary ---
:1945 Author Organization [facility] [place] [address] Care Team Providers Name Role Phone Lovely Vicente MD Primary Care Provider Encounter Details Date Type Department Care Team Description 08/15/2018 Laboratory Lab 3L Barbara Chronic systoli c heart failure; Appointment [facility] ASCVD (ar teriosclerotic cardiovascular disease) [place] [phone] Social History Tobacco Use Types Packs/Day Years [...] Nobles MD [facility] DR CARLYLE [place], [place] [address] (Wo rk) 05/28/2022 Appointment Cardiology Zulma Dolan MD [facility] [address] [place], [place] [address] (Wo rk) 05/28/2022 Laboratory Appointment Lab 05/28/2022 Office Visit Cardiology Zulma Dolan MD [facility] [place] [address] Liz Poole PA [facility] [place] [address] 06/10/2022 Office Visit Dermatology Laura Scherer MD [facility] ER [address]-DERMAT [facility] [place] [address] (Wo rk) documented as of [...] Signature Glucose Lvl 116 65 - 199 [facility] mg/dL [facility] [...] of body mass or the acutely ill. http://Loyalzoo/[facility] eGFR 79 >=60 mL/min/1.73 m?? [facility] Comment: The eGFR was calculated using the CKD-EP I equation. As with all creatinine based estimates of kidney function, eGFR values calculated with the CKD-EPI equation are not accurate in patients wi th acute kidney failure, extremes of body mass or the acutely ill. http://Loyalzoo/[facility] CITY[facility] Specimen Anatomical Collection Method Collection Time Receive d Time (Source) Location / / Volume Laterality Blood specimen 08/15/2018 8:04 AM 019 8:20 (specimen) EST AM EST Resulting Agency Comment Spec In Lab Danette Maxwell APRN CHEMISTRY ORDERABLES Performing Organization Address City/State/ZIP [place] [address] Lipid Panel (08/15/2018 8:04 AM EST) athologist Signature Chol, Total 75 mg/dL [facility] Comment: Lower Risk: <200 mg/dL Average Risk: 200-239 mg/dL Higher Risk: >gd=277 mg/dL Triglycerides 185 mg/dL [facility] Comment: Average Risk/Lower Risk: <150 mg/dL Borderline High Risk: 150-199 mg/dL High Risk: 200-499 mg/dL Very High Risk: >zt=720 mg/dL HDL 32 mg/dL [facility] Comment: Males: ?? Higher Risk: <40 mg/dL Females: ?? HIgher Risk: <50 mg/dL LDL Cholesterol 6 mg/dL [facility] Comment: Lowest Risk: <100 mg/dL Lower Risk: 100-129 mg/dL Borderline High Risk: 130-159 mg/dL High Risk: 160-189 mg/dL Very High Risk: >go=647 mg/dL Chol/HDL Ratio 2.3 ratio [facility] Lipid Interpretation See Note [facility] Comment: Lipid management should be guided by a p atient? s ASCVD risk, goals and preferences. ACC/AHA Guidelines recommend high intens ity statin if clinical ASCVD or LDL greater than or equal to 190 mg/dL. http://Awarepoint.com/KQH-BSD-Jghfapaiy Adults aged 40-75 with LDL 70-189 mg/dL should have their 10 year ASCVD risk estimated with the ACC/AHA ASCVD risk es timator http://tools.acc.org/IUEZX-Oagd-Ssoyhydf r/ Statin should be discussed if risk [...] Address City/State/[place] [address] (ABNORMAL) pro-Brain Natriuretic Peptide (08/15/2018 8:04 AM EST) athologist Signature ProBNP 1,797 (H) <=125 [facility] pg/mL [facility] Specimen Anatomical Collection Method Collection Time Receive d Time (Source) Location / / Volume Laterality Blood specimen 08/15/2018 8:04 AM 019 8:20 (specimen) EST AM EST Resulting Agency Comment Spec In Lab Danettebrock Maxwell STACIE CHEMISTRY ORDERABLES Performing Organization Address City/State/ZIP Code Phon e Number [place] [phone] documented in this encounter Visit Diagnoses Diagnosis Chronic systolic heart failure ASCVD (arteriosclerotic cardiovascular d isease) Unspecified cardiovascular disease documented in this encounter Care Teams Thread Clipper Relationship Specialty Start Date End Date Lovely Vicente MD PCP - General 04/16/[address] [place] [address] documented as of this encounter
--- OUTSIDE RECORDS SUMMARY | 2022-03-11 11:26 | XMS_ITS | Encounter Summary ---
:1945 Author Organization [facility] [place] [address] Care Team Providers Name Role Phone Lovely Vicente MD Primary Care Provider Reason for Visit Reason Comments Skin Check Encounter Details Date Type Department Care Team Description 07/06/2018 Office Visit Dermatology at [facility], Rigoberto Yarbrough (actinic keratosis); MD SHAY Quick III (seborrheic keratosis); [address] [facility] History of melanoma; [place] [address] Skin exam for malignant neoplasm [phone] [facility] [place], [place] [address] Social History Tobacco Use Types [...] encounter. Rigoberto Garcia MD Section of Dermatology [facility] documented in this encounter Plan of Treatment Upcoming Encounters Date Type Specialty Care Team Description 03/26/2022 Office Visit Cardiology Vitaliy Nobles MD [facility] [address] T[address] [place], [place] [address] (Wo rk) 05/28/2022 Appointment Cardiology Zulma Dolan MD [facility] [address] [place], [place] [address] (Wo rk) 05/28/2022 Laboratory Appointment Lab 05/28/2022 Office Visit Cardiology Zulma Dolan [place] [facility] [address] Liz Poole PA [facility] [place] [address] 06/10/2022 Office Visit Dermatology Laura Scherer MD [facility] DR TE[address]DERMAT [place], [place] [address] (Wo rk) documented as of this encounter Visit Diagnoses Diagnosis AK (actinic keratosis) Actinic keratosis SK (seborrheic keratosis) Other seborrheic keratosis History of melanoma Personal history of malignant melanoma o f skin Skin exam for malignant neoplasm Screening for malignant neoplasm of the skin documented in this encounter Care Teams Drafter Patent Relationship Specialty Start Date End Date Lovely Vicente MD PCP - General 04/16/[address] [place] [address] documented as of this encounter
--- OUTSIDE RECORDS SUMMARY | 2022-03-11 11:26 | XMS_ITS | Encounter Summary ---
:1945 Author Organization [facility] [place] [address] Care Team Providers Name Role Phone Lovely Vicente MD Primary Care Provider Reason for Visit Reason Onset Date Comments VNA Calls 08/30/2017 Encounter Details Date Type Department Care Team Description 08/30/2017 Telephone [facility]ascular Surgery at [facility] Cora Reid RN VNA Calls [facility] [place] [address] Social History Tobacco Use Types Packs/Day [...] EST Caller: Alfonso at [facility] [phone] Reason for call: Changing his wound vac [...] who had been in contact with [facility] Nurse who advised him to [...] MD [facility] DR THOM[address] [place], [place] [address] (Wo rk) 05/28/2022 Appointment Cardiology Zulma Dolan MD [facility] Dr [place], [place] [address] (Wo rk) 05/28/2022 Laboratory Appointment Lab 05/28/2022 Office Visit Zulma Garrison MD [facility] [place] [address] Liz Poole PA [facility] [place] [address] 06/10/2022 Office Visit Dermatology Laura Scherer MD [facility] DR [address]DERMAT [place], [place] [address] (Wo rk) documented as of this encounter Visit Diagnoses Not on filedocumented in this encounter Care Teams Cable Television Program Director Relationship Specialty Start Date End Date Lovely Vicente MD PCP - General 04/16/[address] [place] [address] documented as of this encounter
--- OUTSIDE RECORDS SUMMARY | 2022-03-11 11:26 | XMS_ITS | Encounter Summary ---
:1945 Author Organization [facility] [place] [address] Care Team Providers Name Role Phone Lovely Vicente MD Primary Care Provider Encounter Details Date Type Department Care Team Description 10/05/2017 Telephone Cardiology [place] [facility] Tamiko Sin MD [facility] [place] [address] CARDIOLOGY DEPT [phone] [place], [place] [address] (Wo rk) Social History Tobacco [...] Nobles MD [facility] [address]LY[address] [place] [address] (Wo rk) 05/28/2022 Appointment Cardiology Zulma Dolan MD [facility] [address] [place] [address] (Wo rk) 05/28/2022 Laboratory Appointment Lab 05/28/2022 Office Visit Cardiology Zulma Dolan MD [facility] [place] [address] Liz Poole PA [facility] [place] [address] 06/10/2022 Office Visit Dermatology Laura Scherer MD [facility] [address]DERMAT [place], [place] [address] (Wo rk) documented as of this encounter Visit Diagnoses Not on filedocumented in this encounter Care Teams Residential Supervisor Relationship Specialty Start Date End Date Lovely Vicente MD PCP - General 04/16/[address] [place] [address] documented as of this encounter
--- OUTSIDE RECORDS SUMMARY | 2022-03-11 11:26 | XMS_ITS | Encounter Summary ---
:1945 [place] [address] Care Team Providers Name Role Phone Lovely Vicente MD Primary Care Provider Encounter Details Date Type Department Care Team Description 11/29/2017 Hospital Encounter Radiology Library at Estefany Maxwell Pain [facility] ETHYLENE PLANT OPERATOR [facility] [place] [address] CARDIOLOGY [phone] [place], [place] [address] (Wo rk) Social History [...] Vitaliy Nobles MD [facility] CARDIOLOGY [place], [place] [address] (Wo rk) 05/28/2022 Appointment Cardiology Zulma Dolan MD [facility] [place], [place] [address] (Wo rk) 05/28/2022 Laboratory Appointment Lab 05/28/2022 Office Visit Cardiology Zulma Dolan MD [facility] [place] [address] Liz Poole PA [facility] [place] [address] 06/10/2022 Office Visit Dermatology Laura Scherer MD [facility] DR TE[address] GR[address]DERMAT [place], [place] [address] (Wo rk) documented as [...] Time Received Time / Laterality Volume Narrative [facility] - 12/28/2017 11:07 AM EDT This exam is for storage only and is aut o-finalizing. Danettebrock Maxwell ETHYLENE PLANT OPERATOR IMG FILM LIBRARY ORDERABLES Performing Organization Address City/State/ZIP Code Phon e Number [place], [place] documented in this encounter Visit Diagnoses Diagnosis Pain Generalized pain documented in this encounter Care Teams Paper Sheeter Relationship Specialty Start Date End Date Lovely Vicente MD PCP - General 04/16/[address] [place] [address] documented as of this encounter
--- OUTSIDE RECORDS SUMMARY | 2022-03-11 11:26 | XMS_ITS | Encounter Summary ---
:1945 Author Organization [facility] [place] [address] Care Team Providers Name Role Phone Lovely Vicente MD Primary Care Provider Encounter Details Date Type Department Care Team Description 11/29/2017 Office Visit Cardiology at [facility] Annette Viveros Chronic systolic congestive heart failure; 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 [...] using left greater saphenous vein (done at [facility]), debridement of right foot with wound vac Today: Mr. Fatima is accompanied by his today Denies chest [...] Fatima appears euvolemic today. His proBNP is more [...] right popliteal-pedal bypass at [facility] ? Plan: 1. A review of [...] Clinic follow up scheduled for: March Annette Viveros APRN 11/29/2017 documented in this encounter Plan of Treatment Upcoming Encounters Date Type Specialty Care Team Description 03/26/2022 Office Visit Cardiology Vitaliy Nobles MD [facility] DR [place]LE [place], [place] [address] (Wo rk) 05/28/2022 Appointment Cardiology Zulma Dolan MD [facility] Dr [place] 0[address] (Wo rk) 05/28/2022 Laboratory Appointment Lab 05/28/2022 Office Visit Cardiology Zulma Dolan MD [facility] INA [place] [address] Liz Poole PA [facility] [place] [address] 06/10/2022 Office Visit Dermatology Laura Scherer MD [facility] ER DR TEJA GR-DERMAT [place], [place] [address] (Wo rk) documented as of this encounter Results Arterial Duplex Leg, Unil (11/29/2017 10:32 AM EDT) Component Value Ref Test Analysis Performed At [facility] Range Method Time Signature VB Text Department: Vascular Surgery Lab VASCUBASE Report Patient: [id number] (GREGORY FATIMA) CPT: 79759 ICD10: I72.4;I73.9 Referring Physician: ANNETTE VIVEROS ?? Phone: Indications: s/p right toe amp, [...] Volume Laterality 11/29/2017 10:32 AM EDT Annette Viveros APRN VASCULAR ORDERABLES Performing Organization Address City/State/ZIP Code Phon e Number VASCUBASE (ABNORMAL) Basic Metabolic Panel (non-fasting) (11/29/2017 8:22 AM EDT) P athologist Signature Glucose Lvl 217 (H) 65 - 199 [facility] mg/dL [facility] Comment: Diabetes: >=200 mg/dL plus symp toms BUN 26 (H) 10 - 20 mg/dL [facility] Creatinine 0.96 0.80 - 1.50 mg/dL [facility] Sodium 137 135 - 145 mmol/L [facility] Potassium 4.1 3.5 - 5.0 mmol/L [facility] [...] Calcium 8.5 8.5 - 10.5 mg/dL [facility] Estimated GFR >60 >=60 [facility] Comment: The reported eGFR should be multiplied b y 1.2 for patients. The MDRD is not an appropriate measure o f renal function for patients with body mass extremes or in patients with acute kidney failure. http://SmartSignal/DHnkdep http://DealTraction.GlobeIn/DHMCnkf Specimen Anatomical Collection Method Collection Time Receive d Time (Source) Location / / Volume Laterality Blood specimen 11/29/2017 8:22 AM 018 8:29 (specimen) EDT AM EDT Resulting Agency Comment Spec In Lab Annette Viveros ADHESIVE BANDAGE MACHINE OPERATOR CHEMISTRY ORDERABLES Performing Organization Address City/State/[place] [address] (ABNORMAL) pro-Brain Natriuretic Peptide (11/29/2017 8:22 AM EDT) P athologist Signature ProBNP 1,769 (H) <=125 [facility] pg[facility]mL [facility] Specimen Anatomical Collection Method Collection Time Receive d Time (Source) Location / / Volume Laterality Blood specimen 11/29/2017 8:22 AM 018 8:29 (specimen) EDT AM EDT Resulting Agency Comment Spec In Lab Annette Viveros ADHESIVE BANDAGE MACHINE OPERATOR CHEMISTRY ORDERABLES Performing Organization Address City/[facility]/[place] [address] documented in this encounter Visit Diagnoses Diagnosis Chronic systolic congestive heart failur e Chronic systolic heart failure ASCVD (arteriosclerotic cardiovascular d isease) Unspecified cardiovascular disease Cardiomyopathy, ischemic Other specified forms of chronic ischemi c heart disease PAD (peripheral artery disease) Peripheral vascular disease, unspecified documented in this encounter Care Teams Track Coach Relationship Specialty Start Date End Date Lovely Vicente MD PCP - General 04/16/[address] [place] [address] documented as of this encounter
--- OUTSIDE RECORDS SUMMARY | 2022-03-11 11:26 | XMS_ITS | Encounter Summary ---
:1945 Author Organization [facility] [place] [address] Care Team Providers Name Role Phone Lovely Vicente MD Primary Care Provider Encounter Details Date Type Department Care Team Description 08/15/2018 Office Visit Cardiology at [facility] Danette Maxwell Chronic systolic heart failu re; [facility] A, CUSTOMER RESOURCE SPECIALIST Cardiomyopathy, ischemic; [facility] ASCVD (arteriosclerotic card iovascular disease); [place], [place] Essential hypertension; [phone] CARDIOLOGY MARIA VICTORIA on CPAP [phone] [place], [place] [address] Social History Tobacco Use Types [...] in this encounter Progress Notes Danette Maxwell, CUSTOMER RESOURCE SPECIALIST - 08/15/2018 9:00 AM EST Images from [...] is always better at therapy Call to [facility] PT Denies lightheadedness or dizziness Denies [...] K+ 4.6 today 6. Post-op atrial fibrillation [id number] 7 (CHF, HTN, DM, vascular disease, thromboembolism) Amiodarone discontinued Continue coumadin INR managed by PCP. 2.1 today 7. PAD 08/06/2017: Right 1st, 2nd, 3rd toe amputation 08/11/2017: Left??femoral arterial access, RLE??angiogram, Balloon angioplasty of R PT with Eleazar 2.5 x 80 10/25/2017: right popliteal-pedal bypass at [facility] 8. Hypothyrodism S/p thyroidectomy for [...] [facility] [address] CAR[place]LE [place] [address] (Wo rk) 05/28/2022 Appointment Cardiology Zulma Dolan MD [facility] [address] [place] [address] (Wo rk) 05/28/2022 Laboratory Appointment Lab 05/28/2022 Office Visit Cardiology Zulma Dolan MD [facility] [place] [address] Liz Poole PA [facility] [place] [address] 06/10/2022 Office Visit Dermatology Laura Scherer MD [facility] ER DR [address]-DERMAT [place], [place] [address] (Wo rk) documented as of this encounter Results Lipid Panel (08/15/2018 8:04 AM EST) athologist Signature Chol, Total 75 mg/dL [facility] Comment: Lower Risk: <200 mg/dL Average Risk: 200-239 mg/dL Higher Risk: >ty=651 mg/dL Triglycerides 185 mg/dL [facility] Comment: Average Risk/Lower Risk: <150 mg/dL Borderline High Risk: 150-199 mg/dL High Risk: 200-499 mg/dL Very High Risk: >bz=824 mg/dL HDL 32 mg/dL [facility] Comment: Males: ?? Higher Risk: <40 mg/dL Females: ?? HIgher Risk: <50 mg/dL LDL Cholesterol 6 mg/dL [facility] Comment: Lowest Risk: <100 mg/dL Lower Risk: 100-129 mg/dL Borderline High Risk: 130-159 mg/dL High Risk: 160-189 mg/dL Very High Risk: >qp=644 mg/dL Chol/HDL Ratio 2.3 ratio [facility] Lipid Interpretation See Note [facility] Comment: Lipid management should be guided by a p atient? s ASCVD risk, goals and preferences. ACC/AHA Guidelines recommend high intens ity statin if clinical ASCVD or LDL greater than or equal to 190 mg/dL. http://tinyurl.com/AIR-BJN-Lguwmbtsv Adults aged 40-75 with LDL 70-189 mg/dL should have their 10 year ASCVD risk estimated with the ACC/AHA ASCVD risk es timator http://tools.acc.org/KOBYS-Vzlx-Syguoopl r/ Statin should be discussed if risk [...] Organization Address City/State/[place] [address] (ABNORMAL) Basic Metabolic Panel (non-fasting) (08/15/2018 8:04 AM EST) P athologist Signature Glucose Lvl 116 65 - 199 [facility] mg/dL [facility] Comment: Diabetes: >=200 mg/dL plus symp [...] LABORATORY Calcium 9.0 8.5 - 10.5 mg/dL [facility] Estimated GFR 68 >=60 mL/min/1.73 m?? [facility] Comment: The eGFR was calculated using the CKD-EP I equation. As with all creatinine based estimates of kidney function, eGFR values calculated with the CKD-EPI equation are not accurate in patients wi th acute kidney failure, extremes of body mass or the acutely ill. http://Flickme/[facility] eGFR 79 >=60 mL/min/1.73 m?? [facility] Comment: The eGFR was calculated using the CKD-EP I equation. As with all creatinine based estimates of kidney function, eGFR values calculated with the CKD-EPI equation are not accurate in patients wi th acute kidney failure, extremes of body mass or the acutely ill. http://Flickme/[facility]f Specimen Anatomical Collection Method Collection Time Receive d Time (Source) Location / / Volume Laterality Blood specimen 08/15/2018 8:04 AM 019 8:20 (specimen) EST AM EST Resulting Agency Comment Spec In Lab Danette Maxwell APRN CHEMISTRY ORDERABLES Performing Organization Address City/[facility]/[place] [address] (ABNORMAL) pro-Brain Natriuretic Peptide (08/15/2018 8:04 AM EST) P athologist Signature ProBNP 1,797 (H) <=125 [facility] pg/mL [facility] Specimen Anatomical Collection Method Collection Time Receive d Time (Source) Location / / Volume Laterality Blood specimen 08/15/2018 8:04 AM 019 8:20 (specimen) EST AM EST Resulting Agency Comment Spec In Lab Danette Maxwell APRN CHEMISTRY ORDERABLES Performing Organization Address City/State/[place] [address] documented in this encounter Visit Diagnoses Diagnosis Chronic systolic heart failure Cardiomyopathy, ischemic Other specified forms of chronic ischemi c heart disease ASCVD (arteriosclerotic cardiovascular d isease) Unspecified cardiovascular disease Essential hypertension Unspecified essential hypertension MARIA VICTORIA on CPAP Obstructive sleep apnea (adult) (pediatr ic) documented in this encounter Care Teams Plycor Operator Relationship Specialty Start Date End Date Lovely Vicente MD PCP - General 04/16/[address] [place] [address] [address] [place] [address] documented as of this encounter
--- OUTSIDE RECORDS SUMMARY | 2022-03-11 11:26 | XMS_ITS | Encounter Summary ---
:1945 Author Organization [facility] [place] [address] Care Team Providers Name Role Phone Lovely Vicente MD Primary Care Provider Reason for Visit Reason Comments Follow-up Skin Check Encounter Details Date Type Department Care Team Description 01/06/2018 Office Visit Dermatology at [facility]; Abdelrahman HOOPER MD History of melanoma; [address] [facility] [place] [address] [facility] [place], [place] [address] Social History Tobacco Use Types [...] Dr. Garcia.: ARIANA MORRISON LPN I, Hudson aCstilloNaseem, have performed the documentation for this encounter in the presence of and acting as a scribe for RIGOBERTO GARCIA III, MD. I performed the above scribed service and agree with the accuracy of the documentation in this encounter. Rigoberto Garcia MD Section of Dermatology [facility] documented in this encounter Plan of Treatment Upcoming Encounters Date Type Specialty Care Team Description 03/26/2022 Office Visit Cardiology Vitaliy Nobles MD [facility] CARDIOLOGY [place], [place] [address] (Wo rk) 05/28/2022 Appointment Cardiology Zulma Dolan MD [facility] [place], [place] [address] (Wo rk) 05/28/2022 Laboratory Appointment Lab 05/28/2022 Office Visit Cardiology Zulma Dolan MD [facility] [place] [address] Liz Poole PA [facility] [place] [address] 06/10/2022 Office Visit Dermatology Laura Scherer MD [facility] DR TE[address] GR-DERMAT [place]LOG[place], [place] [address] (Wo rk) documented as of this encounter Visit Diagnoses Diagnosis Multiple nevi Benign neoplasm of skin, site unspecifie d History of melanoma Personal history of malignant melanoma o f skin Seborrheic keratosis Other seborrheic keratosis documented in this encounter Care Teams Automatic Drill Operator Relationship Specialty Start Date End Date Lovely Vicente MD PCP - General 04/16/15 [facility] [address] [place] [address] documented as of this encounter
--- OUTSIDE RECORDS SUMMARY | 2022-03-11 11:26 | XMS_ITS | Encounter Summary ---
:1945 [place] [address] Care Team Providers Name Role Phone Lovely Vicente MD Primary Care Provider Encounter Details Date Type Department Care Team Description 08/15/2018 Laboratory Appointment Lab 3L [facility] [place] [address] Social History Tobacco Use Types Packs/Day [...] MD [facility] DR CARLYLE [place], [place] [address] (Wo rk) 05/28/2022 Appointment Cardiology Zulma Dolan MD [facility] [address] [address] (Wo rk) 05/28/2022 Laboratory Appointment Lab 05/28/2022 Office Visit Cardiology Zulma Dolan MD [facility] [place] [address] Liz Poole PA [facility] [place] [address] 06/10/2022 Office Visit Dermatology Laura Scherer MD [facility] ER DR [address]-DERMAT [place], [place] [address] (Wo rk) documented as of this encounter Procedures Procedure Name Priority Date/Time Associated Diagnosis Comme nts PROTHROMBIN TIME Routine 08/15/2018 8:04 AM Resul ts for this EST procedure are i n the results section. documented in this encounter Results (ABNORMAL) Prothrombin Time (08/15/2018 8:04 AM EST) P athologist Signature PT 24.0 (H) 9.4 - 12.5 [facility] LABORATORY INR 2.1 [facility] [...] City/State/[place] [address] documented in this encounter Visit Diagnoses Not on filedocumented in this encounter Care Teams Mental Health Consultant Relationship Specialty Start Date End Date Lovely Vicente MD PCP - General 04/16/[address] [place] [address] documented as of this encounter
--- OUTSIDE RECORDS SUMMARY | 2022-03-11 11:26 | XMS_ITS | Encounter Summary ---
:1945 Author Organization [facility] [place] [address] Care Team Providers Name Role Phone Lovely Vicente MD Primary Care Provider Encounter Details Date Type Department Care Team Description 10/05/2017 Unscheduled Cardiology at [facility] RONNIE Sin PATIENT NOT SEEN Encounter [facility] Tamiko Martinez MD [facility] [place] [address] CARDIOLOGY DEPT [phone] [place] [address] Social History Tobacco Use Types Packs/Day Years [...] Nobles MD [facility] ER DR TADEO [place], [place] [address] (Wo rk) 05/28/2022 Appointment Cardiology Zulma Dolan MD [facility] [place], [place] [address] (Wo rk) 05/28/2022 Laboratory Appointment Lab 05/28/2022 Office Visit Cardiology Zulma Dolan MD [facility] [place] [address] Liz Poole PA [facility] [place] [address] 06/10/2022 Office Visit Dermatology Laura Scherer MD [facility] [address] TEJA GR-DERMAT [place], [place] [address] (Wo rk) documented as of this encounter Visit Diagnoses Diagnosis DH PATIENT NOT SEEN documented in this encounter Care Teams Marketing Outreach Coordinator Relationship Specialty Start Date End Date Lovely Vicente MD PCP - General 04/16/[address] [place] [address] documented as of this encounter
--- OUTSIDE RECORDS SUMMARY | 2022-03-11 11:26 | XMS_ITS | Encounter Summary ---
:1945 Author Organization [facility] [place] [address] Care Team Providers Name Role Phone Lovely Vicente MD Primary Care Provider Encounter Details Date Type Department Care Team Description 09/06/2017 Orders Only Vascular Surgery at [facility] Ninfa Clark, [facility] [place] [address] Social History Tobacco Use Types Packs/Day [...] Nobles MD [facility] DR TADEO [place], [place] [address] (Wo rk) 05/28/2022 Appointment Cardiology Zulma Dolan MD [facility] Dr Reeder [place] [address] (Wo rk) 05/28/2022 Laboratory Appointment Lab 05/28/2022 Office Visit Cardiology Zulma Dolan MD [facility] [place] [address] Liz Poole PA [facility] [place] [address] 06/10/2022 Office Visit Dermatology Laura Scherer MD [facility] DR TEJA GR-DERMAT [place], [place] [address] (Wo rk) documented as of this encounter Visit Diagnoses Not on filedocumented in this encounter Care Teams Manufacturers Agent Relationship Specialty Start Date End Date Lovely Vicente MD PCP - General 04/16/[address] [place] [address] documented as of this encounter
--- OUTSIDE RECORDS SUMMARY | 2022-03-11 11:26 | XMS_ITS | Encounter Summary ---
:1945 Author Organization [facility] [place] [address] Care Team Providers Name Role Phone Lovely Vicente MD Primary Care Provider Encounter Details Date Type Department Care Team Description 04/18/2018 Laboratory Appointment Lab 3L [facility] [place] [id number] Social History Tobacco Use Types Packs/Day Years [...] Cardiology Vitaliy Nobles MD [facility] DR [place]LE [place], [place] [address] (Wo rk) 05/28/2022 Appointment Cardiology Zulma Dolan MD [facility] Dr [place], [place] [address] (Wo rk) 05/28/2022 Laboratory Appointment Lab 05/28/2022 Office Visit Cardiology Zulma Dolan MD [facility] [place] [address] Liz Poole PA [facility] [place] [address] 06/10/2022 Office Visit Dermatology Laura Scherer MD [facility] ER DR [address]-DERMAT OLOGY [place], [place] [address] (Wo rk) documented as [...] Signature Total Protein 7.6 6.1 - 8.0 KATALINA RYAN gm/dL [facility] LABORATORY Albumin 4.0 3.2 - 5.2 KATALINA RYAN gm/dL [facility] LABOR[facility]ORY AST 36 0 - 39 KATALINA RYAN unit/L [facility] LAB[facility]ORY ALT 27 0 - 55 KATALINA RYAN unit/L [facility] Alk Phos 96 40 - 120 KATALINA RYAN unit/L [facility]ORY Total 0.7 0.2 - 1.3 KATALINA RYAN Bilirubin mg/dL [facility]OR[facility]ORY Bili, Direct 0.1 0.0 - 0.3 KATALINA RYAN mg/dL [facility]ORY Specimen Anatomical Collection Method Collection Time Receive d Time (Source) Location / / Volume Laterality Blood specimen Venous Draw / 04/18/2018 9:19 AM 2017 9:44 (specimen) Unknown EDT AM EDT Resulting Agency Comment Spec In Lab Danette Maxwell PATHOLOGY TECHNOLOGIST CHEMISTRY ORDERABLES Performing Organization Address City/State/ZIP Code Phon e Number [address] TSH (04/18/2018 9:19 AM EDT) athologist Signature TSH 1.77 0.27 - 4.20 [facility] mlU/ML [facility] LABOR[facility]ORY Specimen Anatomical Collection Method Collection Time Receive d Time (Source) Location / / Volume Laterality Blood specimen Venous Draw / 04/18/2018 9:19 AM 2017 9:44 (specimen) Unknown EDT AM EDT Resulting Agency Comment Spec In Lab Danette Maxwell STACIE CHEMISTRY ORDERABLES Performing Organization Address City/State/ZIP Code Phon e Number [address] (ABNORMAL) Basic Metabolic Panel (non-fasting) (04/18/2018 9:19 AM EDT) [facility] Glucose Lvl 167 65 - 199 [facility] mg/dL [facility] Comment: Diabetes: >=200 mg/dL plus symp toms BUN 18 10 - 20 mg/dL [facility]OR[facility]ORY Creatinine 1.19 0.80 - 1.50 mg/dL [facility] Sodium 147 (H) 135 - [...] [facility] LABORATORY Anion Gap 23 (H) 5 - 15 mmol/L [facility]ORY Calcium 9.3 8.5 - 10.5 mg/dL [facility] Estimated GFR 61 >=60 mL/min/1.73 m?? [facility] Comment: The eGFR was calculated using the CKD-EP I equation. As with all creatinine based estimates of kidney function, eGFR values calculated with the CKD-EPI equation are not accurate in patients wi th acute kidney failure, extremes of body mass or the acutely ill. http://FP[employer] Enteprises/[facility] SHATTUCKnkf eGFR 70 >=60 mL/min/1.73 m?? [facility] Comment: The eGFR was calculated using the CKD-EP I equation. As with all creatinine based estimates of kidney function, eGFR values calculated with the CKD-EPI equation are not accurate in patients wi th acute kidney failure, extremes of body mass or the acutely ill. http://[employer]/[facility] SHATTUCKnkf Specimen Anatomical Collection Method Collection Time Receive d Time (Source) Location / / Volume Laterality Blood specimen 04/18/2018 9:19 AM 018 9:34 (specimen) EDT AM EDT Resulting Agency Comment Spec In Lab Danette Maxwell APRN CHEMISTRY ORDERABLES Performing Organization Address City/State/[place] [address] (ABNORMAL) pro-Brain Natriuretic Peptide (04/18/2018 9:19 AM EDT) P athologist Signature ProBNP 2,199 (H) <=125 [facility] pg/mL [facility] LABOR[facility]ORY Specimen Anatomical Collection Method Collection Time Receive d Time (Source) Location / / Volume Laterality Blood specimen 04/18/2018 9:19 AM 018 9:34 (specimen) EDT AM EDT Resulting Agency Comment Spec In Lab Danette Maxwell APRN CHEMISTRY ORDERABLES Performing Organization Address City/State/[place] [address] documented in this encounter Visit Diagnoses Diagnosis Chronic systolic heart failure documented in this encounter Care Teams Senior Analyst Market Intelligence Relationship Specialty Start Date End Date Lovely Vicente MD PCP - General 04/16/[address] [place] [address] documented as of this encounter
--- OUTSIDE RECORDS SUMMARY | 2022-03-11 11:26 | XMS_ITS | Encounter Summary ---
:1945 Author Organization [facility] [place] [address] Care Team Providers Name Role Phone Lovely Vicente MD Primary Care Provider Encounter Details Date Type Department Care Team Description 11/29/2017 Hospital Encounter Vascular Lab at Janett Walter PAD (peripheral [facility], RVT artery [facility]) [place] [phone] Social History Tobacco Use Types Packs/Day Years [...] Nobles MD [facility] [address] [place], [place] [address] (Wo rk) 05/28/2022 Appointment Cardiology Zulma Dolan MD [facility] [place], [place] [address] (Wo rk) 05/28/2022 Laboratory Appointment Lab 05/28/2022 Office Visit Cardiology Zulma Dolan MD [facility] [place] [address] Liz Poole PA [facility] [place] [address] 06/10/2022 Office Visit Dermatology Laura Scherer MD [facility] [address] [place], [place] [address] (Wo rk) documented as of this encounter Procedures Procedure Name Priority Date/Time Associated Diagnosis Comme nts ARTERIAL DUPLEX LEG Routine 11/29/2017 10:32 AM PAD (periphera l Results for this UNILA EDT artery disease) procedure ar e in the results section. documented in this encounter Results Arterial Duplex Leg, Unil (11/29/2017 10:32 AM EDT) Component Value Ref Test Analysis Performed At [facility] Range Method Time Signature VB Text Department: Vascular Surgery Lab VASCUBASE Report Patient: [id number] (GREGORY HOANG) CPT: 09031 ICD10: I72.4;I73.9 Referring Physician: ANNETTE MAXWELL ?? [...] Laterality 11/29/2017 10:32 AM EDT Annette Maxwell CRIME SCENE INVESTIGATOR VASCULAR ORDERABLES Performing Organization Address City/State/ZIP Code Phon e Number VASCUBASE documented in this encounter Visit Diagnoses Diagnosis PAD (peripheral artery disease) Peripheral vascular disease, unspecified documented in this encounter Care Teams Embossograph Operator Relationship Specialty Start Date End Date Lovely Vicente MD PCP - General 04/16/[address] [place] [address] documented as of this encounter
--- OUTSIDE RECORDS SUMMARY | 2022-03-11 11:26 | XMS_ITS | Encounter Summary ---
:1945 Author Organization [facility] [place] [address] Care Team Providers Name Role Phone Lovely Vicente MD Primary Care Provider Encounter Details Date Type Department Care Team Description 09/16/2017 Hospital [place] [phone] Social History Tobacco Use Types Packs/Day [...] Nobles MD [facility] [address] [place], [place] [address] (Wo rk) 05/28/2022 Appointment Cardiology Zulma Dolan MD [facility] [place], [place] [address] (Wo rk) 05/28/2022 Laboratory Appointment Lab 05/28/2022 Office Visit Cardiology Zulma Dolan MD [facility] [place] [address] Liz Poole PA [facility] [place] [address] 06/10/2022 Office Visit Dermatology Laura Scherer MD [facility] [address] [place], [place] [address] (Wo rk) documented as of this encounter Procedures Procedure Name Priority Date/Time Associated Diagnosis Comme nts SURGICAL PATHOLOGY Routine 09/16/2017 7:28 AM Res ults for this REPORT EST procedure are i n the results section. documented in this encounter Results Surgical Pathology Report (09/16/2017 7:28 AM EST) Component Value Ref Test Analysis Performed At Patholo gist Range Method Time Signature Surgical [id number] ? Location: [facility] Pathology RYAN Report The signing pathologist [...] [facility] Dept. of Pathology, [place], [place] CLINICAL INFORMATION Specimen Submitted: A - [...] Address City/State/[place] [address] documented in this encounter Visit Diagnoses Not on filedocumented in this encounter Care Teams Word Processing Specialist Relationship Specialty Start Date End Date Lovely Vicente MD PCP - General 04/16/[address] [place] [address] documented as of this encounter
--- OUTSIDE RECORDS SUMMARY | 2022-03-11 11:26 | XMS_ITS | Encounter Summary ---
:1945 Author Organization [facility] [place] [address] Care Team Providers Name Role Phone Lovely Vicente MD Primary Care Provider Encounter Details Date Type Department Care Team Description 10/07/2017 Laboratory Appointment Lab 3L [facility] [place] [phone] Social History Tobacco Use Types Packs/Day Years [...] Vitaliy Nobles MD [facility] DR [place], [place] [address] (Wo rk) 05/28/2022 Appointment Cardiology Zulma Dolan MD [facility] [address] [place], [place] [address] (Wo rk) 05/28/2022 Laboratory Appointment Lab 05/28/2022 Office Visit Cardiology Zulma Dolan MD [facility] [place] [address] Liz Poole PA [facility] [place] [address] 06/10/2022 Office Visit Dermatology Laura Scherer MD [facility] ER [address] [place], [place] [address] (Wo rk) documented as of [...] 99 65 - 199 [facility] mg/dL [facility] Comment: Diabetes: >=200 mg/dL plus symp toms BUN 27 (H) 10 - 20 mg/dL [facility] Creatinine 1.07 0.80 - 1.50 mg/dL [facility] Sodium 143 135 - [...] 15 mmol/L [facility] Calcium 8.4 (L) 8.5 - 10.5 mg/dL [facility] Estimated GFR >60 >=60 KATALINA Wyatt [facility] Comment: The reported eGFR should be multiplied b y 1.2 for patients. The MDRD is not an appropriate measure o f renal function for patients with body mass extremes or in patients with acute kidney failure. http://Jott/DHnkdep http://Jott/DHMCnkf Specimen Anatomical Collection Method Collection Time Receive d Time (Source) Location / / Volume Laterality Blood specimen 10/07/2017 8:48 AM 018 8:50 (specimen) EDT AM EDT Resulting Agency Comment Spec In Lab Danette Maxwell STACIE CHEMISTRY ORDERABLES Performing Organization Address City/State/[place] [address] (ABNORMAL) pro-Brain Natriuretic Peptide (10/07/2017 8:48 AM EDT) P athologist Signature ProBNP 1,170 (H) <=125 [facility] pg/mL [facility] Specimen Anatomical Collection Method Collection Time Receive d Time (Source) Location / / Volume Laterality Blood specimen 10/07/2017 8:48 AM 018 8:50 (specimen) EDT AM EDT Resulting Agency Comment Spec In Lab Danette Maxwell STACIE CHEMISTRY ORDERABLES Performing Organization Address City/State/[place] [address] documented in this encounter Visit Diagnoses Diagnosis Chronic systolic heart failure documented in this encounter Care Teams Supervisor Tumblers Relationship Specialty Start Date End Date Lovely Vicente MD PCP - General 04/16/[address] [place] [address] documented as of this encounter
--- OUTSIDE RECORDS SUMMARY | 2022-03-11 11:26 | XMS_ITS | Encounter Summary ---
:1945 Author Organization [facility] [place] [address] Care Team Providers Name Role Phone Lovely Vicente MD Primary Care Provider Encounter Details Date Type Department Care Team Description 07/28/2019 Office Visit Cardiology at [facility] Danette Maxwell Chronic systolic heart failu re; [facility] A, STACIE ASHD (arteriosclerotic heart disease); Drive [facility] S/P CABG x 3; [place], [place] MARIA VICTORIA (obstructive sleep apnea) on CPAP; [phone] CARDIOLOGY Mixed hyperlipidemia [phone] [place], [place] [address] Social History Tobacco Use Types [...] in this encounter Progress Notes Danette Maxwell, OPERATOR TECHNICIAN - 07/28/2019 9:40 AM EST Images [...] regurgitation present. 07/07/2019 - 07/21/2019 Zio Patch Ice Scraper The patient had a minimum heart rate [...] K+ 4.5 today 6. Post-op atrial fibrillation [id number] (CHF, HTN, DM, vascular disease, thromboembolism) [...] advised: Refer to EP (Dr. Mcelroy in [place]) 5. Heart Failure Clinic follow up scheduled for: 3 months with proBNP and BMP Danette Maxwell APRN 07/28/2019 documented in this encounter Plan of Treatment Upcoming Encounters Date Type Specialty Care Team Description 03/26/2022 Office Visit Cardiology Vitaliy Nobles MD [facility] [address] [place], [place] [address] (Wo rk) 05/28/2022 Appointment Cardiology Zulma Dolan MD [facility] [address] [place], [place] [address] (Wo rk) 05/28/2022 Laboratory Appointment Lab 05/28/2022 Office Visit Cardiology Zulma Dolan MD [facility] [place] [address] Liz Poole PA [facility] [place] [address] 06/10/2022 Office Visit Dermatology Laura Scherer MD [facility] [address] [place], [place] [address] (Wo rk) documented as of this encounter Results (ABNORMAL) Basic Metabolic Panel (non-fasting) (07/28/2019 8:36 AM EST) P athologist Signature Glucose Lvl 153 65 - 199 [facility] mg/dL [facility] Comment: Diabetes: >=200 [...] of body mass or the acutely ill. http://Pharmacy Development/CompassMednkf eGFR 81 >=60 mL/min/1.73 m?? [facility] Comment: The eGFR was calculated using the CKD-EP I equation. As with all creatinine based estimates of kidney function, eGFR values calculated with the CKD-EPI equation are not accurate in patients wi th acute kidney failure, extremes of body mass or the acutely ill. http://Pharmacy Development/DHnkf Specimen Anatomical Collection Method Collection Time Receive d Time (Source) Location / / Volume Laterality Blood specimen 07/28/2019 8:36 AM 020 8:46 (specimen) EST AM EST Resulting Agency Comment Spec In Lab Danette Maxwell APRN CHEMISTRY ORDERABLES Performing Organization Address City/[facility]/[place] [address] (ABNORMAL) pro-Brain Natriuretic Peptide [...] Organization Address City/State/[place] [address] documented in this encounter Visit Diagnoses Diagnosis Chronic systolic heart failure ASHD (arteriosclerotic heart disease) Coronary atherosclerosis of unspecified type of vessel, [place] or graft S/P CABG x 3 Postsurgical aortocoronary bypass status MARIA VICTORIA (obstructive sleep apnea) on CPAP Obstructive sleep apnea (adult) (pediatr ic) Mixed hyperlipidemia documented in this encounter Care Teams Grain Elevator Worker Relationship Specialty Start Date End Date Lovely Vicente MD PCP - General 04/16/[address] [place] [address] documented as of this encounter
--- OUTSIDE RECORDS SUMMARY | 2022-03-11 11:27 | XMS_ITS | Encounter Summary ---
:1945 Author Organization [facility] [place] [address] Care Team Providers Name Role Phone Lovely Vicente MD Primary Care Provider Reason for Visit Reason Comments Follow-up I'm having trouble with the VAC Encounter Details Date Type Department Care Team Description 08/26/2017 Office Visit Vascular Surgery at [facility], STEPHANIE Mercado Atheroembolism of foot, right; [facility] [address] Delayed surgical wound healing, initial encounter; [facility] VASCULAR SURG YEHUDA Acute on chronic systolic congestive hea rt failure ; [place], [place] [phone] Social History Tobacco Use Types Packs/Day Years [...] home and into the care of the [facility]. However, since discharge from [facility] he has had some difficulty with continuation [...] SETUP performed by Manny Mcknight MD at [facility] MAIN OR ??? PRO AMPUTATION FOOT, TRANSMETATARSAL Right 08/09/2017 AMPUTATION, TRANSMETATARSAL (WRVU 12.71) performed by Yonathan Smith MD at [facility] MAIN OR ??? PRO CABG, ARTERIAL, SINGLE N/A 07/07/2017 @CABG, USING ARTERIAL GRAFT;SINGLE ARTERIAL GRAFT (WRVU 33.75) performed by Yuan Retana MD at [facility] MAIN OR ??? PRO CABG, ARTERY-VEIN, TWO N/A 07/07/2017 @CABG, TWO VENOUS GRAFTS & ARTERIAL GRAFT (WRVU 7.93) performed by Yuan Retana MD at [facility] MAIN OR ??? PRO COLONOSCOPY, REMV LESN, SNARE 01/16/2014 COLONOSCOPY, POLYPECTOMY, REMOVAL LESION BY SNARE performed by Nohemi Jaimes MD at [facility] ENDOSCOPY ??? PRO DRESSING CHANGE UNDER ANESTHESIA Right 08/11/2017 (MSURG) DRESSING CHANGE (FOR OTHER THAN IVAN) UNDER ANES. (WRVU 0.86) performed by Lamar Smith MD at [facility] MAIN OR ??? PRO ENDOSCOPY W/VIDEO-ASST VEIN HARVEST, CABG Right 07/07/2017 ENDOSCOPIC HARVEST VEIN(S) FOR CABG (WRVU 0.31) performed by Yuan Retana MD at [facility] MAIN OR ??? PRO THYROIDECTOMY 03/28/2013 THYROIDECTOMY, TOTAL OR COMPLETE performed by Manny Mcknight MD at [facility] MAIN OR Social Hx: Social History [...] MD [facility] [address] [place], [place] [address] (Wo rk) 05/28/2022 Appointment Cardiology Zulma Dolan MD [facility] [address] [place], [place] [address] (Wo rk) 05/28/2022 Laboratory Appointment Lab 05/28/2022 Office Visit Cardiology Zulma Dolan MD [facility] [place] [address] Liz Poole PA [facility] [place] [address] 06/10/2022 Office Visit Dermatology Laura Scherer MD [facility] [address] [place], [place] [address] (Wo rk) documented as of [...] for Behavioral Medicine Range Method Time Signature VB Text Department: Vascular Surgery Lab VASCUBASE Report Patient: [id number] (GREGORY FATIMA) CPT: 85511 ICD10: T81.89XA;I75.021 Referring Physician: ARIK CLEMENT ?? Indications: S/P right 1st, 2nd, and [...] Volume Laterality 08/26/2017 2:09 PM EST Arik Clement MD VASCULAR ORDERABLES Performing Organization Address City/State/ZIP Code Phon e Number VASCUBASE Basic Metabolic Panel (non-fasting) (08/26/2017 2:00 PM EST) P athologist Signature Glucose Lvl 98 65 - 199 [facility] mg/dL [facility] Comment: Diabetes: >=200 mg/dL plus symp toms BUN 20 10 - 20 mg/dL [facility] Creatinine 1.17 0.80 - 1.50 mg/dL [facility] [...] Gap 14 5 - 15 mmol/L [facility] Calcium 9.1 8.5 - 10.5 mg/dL [facility] Estimated GFR >60 >=60 [facility] Comment: The reported eGFR should be multiplied b y 1.2 for patients. The MDRD is not an appropriate measure o f renal function for patients with body mass extremes or in patients with acute kidney failure. http://BreathalEyes/DHnkdep http://BreathalEyes/DHMCnkf Specimen Anatomical Collection Method Collection Time Receive d Time (Source) Location / / Volume Laterality Blood specimen 08/26/2017 2:00 PM 018 2:15 (specimen) EST PM EST Resulting Agency Comment Spec In Lab Danette Maxwell APRN CHEMISTRY ORDERABLES Performing Organization Address City/State/[place] [address] (ABNORMAL) pro-Brain Natriuretic Peptide (08/26/2017 2:00 PM EST) P athologist Signature ProBNP 2,373 (H) <=125 [facility] pg/mL [facility] Specimen Anatomical Collection Method Collection Time Receive d Time (Source) Location / / Volume Laterality Blood specimen 08/26/2017 2:00 PM 018 2:15 (specimen) EST PM EST Resulting Agency Comment Spec In Lab Danette A Hans QUINONES CHEMISTRY ORDERABLES Performing Organization Address City/State/[place] [address] documented in this encounter Visit Diagnoses Diagnosis Atheroembolism of foot, right Delayed surgical wound healing, initial encounter Acute on chronic systolic congestive hea rt failure Acute on chronic systolic heart failure Ischemic cardiomyopathy Other specified forms of chronic ischemi c heart disease documented in this encounter Care Teams Advertising Internship Relationship Specialty Start Date End Date Lovely Vicente MD PCP - General 04/16/[address] [place] [address] documented as of this encounter
--- OUTSIDE RECORDS SUMMARY | 2022-03-11 11:27 | XMS_ITS | Encounter Summary ---
:1945 Author Organization [facility] [place] [address] Care Team Providers Name Role Phone Lovely Vicente MD Primary Care Provider Encounter Details Date Type Department Care Team Description 08/26/2017 Hospital Encounter Vascular Lab at [facility], Athero embolism of foot, right; [place], [place] Delayed surgi nusrat wound healing, [place] [phone] Social History Tobacco Use Types Packs/Day Years [...] MD [facility] [address] [place], [place] [address] (Wo rk) 05/28/2022 Appointment Cardiology Zulma Dolan MD [facility] [place], [place] [address] (Wo rk) 05/28/2022 Laboratory Appointment Lab 05/28/2022 Office Visit Cardiology Zulma Dolan MD [facility] [place] [address] Liz Poole PA [facility] [place] [address] 06/10/2022 Office Visit Dermatology Laura Scherer MD [facility] [address] [place], [place] [address] (Wo rk) documented as of [...] Component Value Ref Test Analysis Performed At [facility] Range Method Time Signature VB Text Department: Vascular Surgery Lab VASCUBASE Report Patient: [id number] (GREGORY HOANG) CPT: 65291 ICD10: T81.89XA;I75.021 Referring Physician: ARIK BLOOM ?? [...] encounter documented in this encounter Care Teams Aircraft Fuselage Framer Relationship Specialty Start Date End Date Lovely Vicente MD PCP - General 04/16/[address] [place] [address] documented as of this encounter
--- OUTSIDE RECORDS SUMMARY | 2022-03-11 11:27 | XMS_ITS | Encounter Summary ---
:1945 Author Organization [facility] [place] [address] Care Team Providers Name Role Phone Lovely Vicente MD Primary Care Provider Reason for Referral Diagnostic Test (Routine) - Closed Specialty Diagnoses / Procedures Referred By Contact Refer red To Contact Cardiology Diagnoses Ischemic cardiomyopathy Acute on chronic systolic congestive heart failure Danette Maxwell APRN [facility] Non-Inv Card Lab Procedures Echocardiogram Transthoracic(Leb) [facility] [place] [address] [place] [address] Referral ID Status Reason Start Date Expiration Date Visits V isits Requested Authorized [id number] Closed Specialty 08/30/2017 08/30/2018 1 1 Service Requested Encounter Details Date Type Department Care Team Description 08/26/2017 Office Visit Cardiology at [facility] Danette Maxwell Ischemic cardiomyopathy; [facility] STACIE Gomes Acute on chronic systolic congestive hea rt failure ; Drive [facility] ASCVD (arteriosclerotic card iovascular disease); [place], [place] PAF (paroxysmal atrial fibrillation); [id number] CARDIOLOGY PAD (peripheral artery disease) [phone] [place], [place] [address] Social History Tobacco Use Types Packs/Day Years [...] and swollen right 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 to 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 right [...] MD [facility] [address] [place], [place] [address] (Wo rk) 05/28/2022 Appointment Cardiology Zulma Dolan MD [facility] [address] [place], [place] [address] (Wo rk) 05/28/2022 Laboratory Appointment Lab 05/28/2022 Office Visit Cardiology Zulma Dolan MD [facility] [place] [address] Liz Poole PA [facility] [place] [address] 06/10/2022 Office Visit Dermatology Laura Scherer MD [facility] [address] [place], [place] [address] (Wo rk) documented as of this encounter Results ECHOCARDIOGRAM COMPLETE W CONTRAST (10/07/2017 10:23 AM EDT) athologist Signature EF 45 [facility] Specimen (Source) Anatomical Location Collection Method / Collectio n Time Received Time / Laterality Volume 10/07/2017 Narrative [facility] - 10/07/2017 11:13 AM ED T Procedure: ?Transthoracic Echocardiogram Patient: ?NATALYA JENKINS E ? (Age): 1945(72y) Med Rec#: ? [id number] ?Sex: ?M ? Site Loc: ? [facility] ?Ht / Wt: ??173(cm)/82(kg) Pt. Loc: ?Echo Lab ?BSA: ?1.96 Study Date: ?? 10/07/2017 ?Pt. Type: Outpatient Tape: ? Referring: Danette Maxwell Reading: Iker Cuevas ([id number]) Aesthetician: Yonathan Bocanegra Diagnosis: *ICD-10-PCS Ischemic cardiomyopathy (I2 [...] E-wave Vmax ?1.2 ?m/sec ? MV deceleration [id number] ?msec ? MV A-wave Vmax ?1 ?m/sec [...] ? Mid-Inferior ?Hypokinetic ? Mid-Inferoseptal ?Hypokinetic ? [place]-Septal ? Akinetic ? [place]-Anterior ? Hypokinetic ? [place]-Lateral ?Hypokinetic ? [place]-Inferior ? Hypokinetic ? [place]-Tip ?Akinetic ? This report has been electronically sign ed by: _ Iker Cuevas M.D. ? 10/07/2017 11:12:34 Images reviewed and interpretation verif d [facility] Cardiac Ultrasound Laboratory Procedure Note Iker Cuevas MD - 10/07/2017Formatti ng of this note might be different from the original. Procedure: Transthoracic Echocardiogram Patient: NATALYA MCBRIDE(Age): [birth year]72y) Med Rec#: [id number] Sex: M Site Loc: [facility] Ht / Wt: 173(cm)/82(kg) Pt. Loc: Echo Lab BSA: 1.96 Study Date: 10/07/2017 Pt. Type: Outpati ent Tape: Referring: Danette Maxwell Reading: Iker Cuevas ([id number]) Aesthetician: Yonathan Bocanegra Diagnosis: *ICD-10-PCS Ischemic cardiomyopathy (I2 [...] MV E-wave Vmax 1.2 m/sec MV deceleration [id number] msec MV A-wave Vmax 1 m/sec MV [...] Akinetic Mid-Posterolateral Hypokinetic Mid-Inferior Hypokinetic Mid-Inferoseptal Hypokinetic [place]-Septal Akinetic [place]-Anterior Hypokinetic [place]-Lateral Hypokinetic [place]-Inferior Hypokinetic [place]-Tip Akinetic This report has been electronically sign ed by: _ Iker Cuevas M.D. 10/07/2017 11:12 :34 Images reviewed and interpretation verif ied [facility] Cardiac Ultrasound Laboratory Danette Maxwell APRN ECHO ORDERABLES Performing Organization Address City/State/ZIP Code Phon e Number [facility] Basic Metabolic Panel (non-fasting) (08/26/2017 2:00 PM EST) P athologist Signature Glucose Lvl 98 65 - 199 [facility] mg/dL [facility] Comment: Diabetes: >=200 mg/dL plus symp toms BUN 20 10 - 20 mg/dL [facility] Creatinine 1.17 0.80 - 1.50 mg/dL [facility] [...] LABORATORY Calcium 9.1 8.5 - 10.5 mg/dL [facility] Estimated GFR >60 >=60 [facility] Comment: The reported eGFR should be multiplied b y 1.2 for patients. The MDRD is not an appropriate measure o f renal function for patients with body mass extremes or in patients with acute kidney failure. http://Terressentia/DHnkdep http://Terressentia/DHMCnkf Specimen Anatomical Collection Method Collection Time Receive d Time (Source) Location / / Volume Laterality Blood specimen 08/26/2017 2:00 PM 018 2:15 (specimen) EST PM EST Resulting Agency Comment Spec In Lab Danette Maxwell APRN CHEMISTRY ORDERABLES Performing Organization Address City/[facility]/[place] [address] (ABNORMAL) pro-Brain Natriuretic Peptide (08/26/2017 2:00 PM EST) P athologist Signature ProBNP 2,373 (H) <=125 [facility] pg[facility]mL [facility] Specimen Anatomical Collection Method Collection Time Receive d Time (Source) Location / / Volume Laterality Blood specimen 08/26/2017 2:00 PM 018 2:15 (specimen) EST PM EST Resulting Agency Comment Spec In Lab Danette Maxwell APRN CHEMISTRY ORDERABLES Performing Organization Address City/State/[place] [address] documented in this encounter [...] failure documented in this encounter Care Teams Middleware Administrator Relationship Specialty Start Date End Date Lovely Vicente MD PCP - General 04/16/15 [address] [place] [address] documented as of this encounter
--- OUTSIDE RECORDS SUMMARY | 2022-03-11 11:27 | XMS_ITS | Encounter Summary ---
:1945 Author Organization [facility] [place] [address] Care Team Providers Name Role Phone Lovely Vicente MD Primary Care Provider Encounter Details Date Type Department Care Team Description 08/25/2017 Telephone Pain Management at [facility] [place], [place] [address] Social History Tobacco Use Types Packs/Day [...] Management Center Preauthorization Request Patient: Don Fatima [id number] Fax received from [employer] denying prior authorization for Lidocaine Patches prescribed by Babrra Soares APRN. RX insurance plan: [employer] insurance telephone: [phone] Patient Diagnosis: right foot pain secondary to PVD and ischemia ? Previous medications attempted: Tylenol, Tramadol, Dilaudid Authorization/Reference number: [id number] _x_ denied, provider and patient informed _x_ appeal initiated by provider, patient informed Angeles Rodrigez, RN documented in this encounter Plan of Treatment Upcoming Encounters Date Type Specialty Care Team Description 03/26/2022 Office Visit Cardiology Vitaliy Nobles MD [facility] CARDIOLOGY [place], [place] [address] (Wo rk) 05/28/2022 Appointment Cardiology Zulma Dolan MD [facility] [place], [place] [address] (Wo rk) 05/28/2022 Laboratory Appointment Lab 05/28/2022 Office Visit Cardiology Zulma Dolan MD [facility] [place] [address] Liz Poole PA [facility] [place] [address] 06/10/2022 Office Visit Dermatology Laura Scherer MD [facility] [address] [place], [place] [address] (Wo rk) documented as of this encounter Visit Diagnoses Not on filedocumented in this encounter Care Teams Magazine Repairer Relationship Specialty Start Date End Date Lovely Vicente MD PCP - General 04/16/[address] [place] [address] documented as of this encounter
--- OUTSIDE RECORDS SUMMARY | 2022-03-11 11:27 | XMS_ITS | Encounter Summary ---
:1945 Author Organization [place] [address] Care Team Providers Name Role Phone Lovely Vicente MD Primary Care Provider Reason for Visit Reason Comments Follow-up Encounter Details Date Type Department Care Team Description 08/19/2017 Office Visit Cardiac Surgery at [place], [facility] S/P C ABG (coronary [facility] N, artery bypass graft) [facility] [place] CARDIOTHORACIC [phone] SURGERY [phone] [place], [place] [address] Social History Tobacco Use Types [...] office. Best personal regards, Yuan [place] MD [phone] documented in this encounter Plan of Treatment Upcoming Encounters Date Type Specialty Care Team Description 03/26/2022 Office Visit Cardiology Vitaliy Nobles MD [facility] [address] [place], [place] [address] (Wo rk) 05/28/2022 Appointment Cardiology Zulma Dolan MD [facility] [address] [place] [address] (Wo rk) 05/28/2022 Laboratory Appointment Lab 05/28/2022 Office Visit Cardiology Zulma Dolan MD [facility] [place] [address] Liz Poole PA [facility] [place] [address] 06/10/2022 Office Visit Dermatology Laura Scherer MD [facility] DR [address] [place], [place] [address] (Wo rk) documented as of [...] 454 ms MUSE SYSTEM (Bezet) Calculated P [place] 20 degrees MUSE SYSTEM Calculated R [place] -29 degrees MUSE SYSTEM Calculated T [place] 121 degrees MUSE SYSTEM INTERPRETATION Normal sinus rhythm MUSE SYSTEM Inferior infarct (cited on or before 25-JAN-2013) Anterior 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) T wave abnormality, consider lateral ischemia Abnormal ECG When compared with ECG of 06-AUG-2017 12:37, No signif icant change was found Confirmed by MD Luci, Taurus Braun ([id number]) on 08/19/2017 1 0:37:38 PM Specimen Anatomical [...] status documented in this encounter Care Teams Chief Port Director Relationship Specialty Start Date End Date Lovely Vicente MD PCP - General 04/16/[address] [facility] [address] [place] [address] documented as of this encounter
--- OUTSIDE RECORDS SUMMARY | 2022-03-11 11:27 | XMS_ITS | Encounter Summary ---
:1945 [place] [address] Care Team Providers Name Role Phone Lovely Vicente MD Primary Care Provider Reason for Visit Auth/Cert Specialty Diagnoses / Procedures Referred By Contact Refer red To Contact Diagnoses Critical lower limb ischemia CELLULITIS RT FOOT Procedures EMERGENCY Referral ID Status Reason Start Date Expiration Date Visits Requ ested Visits Authorized [id number] 1 1 Encounter Details Date Type Department Care Team Description 08/06/2017 - Hospital Encounter 5 Yonathan Oneill lower limb ischemia; 08/16/2017 Su Flores MD Ischemic foot Hospital 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 [...] Dorsalis Pedis (Ankle) Artery ?132 ? 0.94 ??[place]-Biphasic ? Posterior Tibial (Ankle) Artery ??154 ? 1.10 ??[place]-Biphasic ? Fourth Toe ? 67 ?0.48 ?? [...] the foot. Discharge Conditions/Prognosis: Good Discharge to: [facility] Rehab Discharge Medications: Your Medications New [...] For any problems or questions please call [phone] ZELDA Smith, rivet hammer machine operator Nurse Clinician For issues on weeknights after 5pm and weekends please call [phone] and ask for the Vascular Fellow laborer prestressed concrete. General Instructions None Future Appointments and Orders Future Appointments Provider Department Dept Phone 08/26/2017 4:00 PM Aurelia Rivera PA [facility] [phone] 09/07/2017 3:00 PM LAB, THREE L Lab 3L [facility] [phone] 09/07/2017 4:00 PM Luz Prescott MD Endocrinology [facility] [phone] 09/09/2017 8:00 AM Barbra Soares APRN [facility] Management [facility] [phone] Please bring a list of your current [...] For any problems or questions please call [phone] ZELDA Smith, rivet hammer machine operator Nurse Clinician For issues on weeknights after 5pm and weekends please call [phone] and ask for the Vascular Fellow laborer prestressed concrete. documented in this encounter Medications at Time [...] Discharge Note Patient Destination: [facility] ([facility]) [address] [place] [address] Transportation: with (at bedside) Time of Discharge: by 12 noon Level of Care: swing Patient Aware: yes Family Notified: yes Md to call report to: Yissel Quintero CLAIMS ADJUSTER CROP already called RN to call report to: [phone] Shirin Wolf Office of Care Management Pager [phone] Shirin Wolf RN - 08/16/2017 10:50 AM EST [facility] has offered pt swing bed. Pt and accept bed. will transport via car. CLAIMS ADJUSTER CROP Yissel Quintero aware; d/c paperwork will be completed by 12 noon. [facility] requests pt arrival by 1400 today; CLAIMS ADJUSTER CROP, RN, and family aware. CLAIMS ADJUSTER CROP called [facility] and was told that they prefer pt to arrive with wound vac dressing applied but clamped. CLAIMS ADJUSTER CROP applied new wound vac dressing. RN has [facility] number to call report. PASSR completed; CLAIMS ADJUSTER CROP paged to request provider signature in highlighted space. Indigo from [facility] notified via email that home wound vac now cancelled; [facility] has picked up from room and order cancelled. Packet started and provided to day camp unit leader. Medicare important message explained to patient, patient signed. Copy provided to patient and signature page to OCM for inclusion in pt EMR. Radha Georges - 08/16/2017 10:34 AM EST Office of Care Management/Disc Ruler Operator Patient Name: Gregory Hoang : 1945 Patient has been offered a swing bed at [facility]. The patient will be transported by private transportation. No MD to MD report necessary Please call Nursing Report to [phone], ask for electrician. Info to accompany patient: Narcotic Prescriptions Copies of Medication Administration Records and IV sheets for past 10 days. Plan: Disc Ruler Operator will be available to the patient and Laborer Prestressed Concrete-RN and/or Automotive Light Mechanic for further assistance. Patient will be discharged to: [place] [id number] Radha Powers, Disc Ruler Operator Mira Black, VAMSI - 08/15/2017 10:05 PM EST [address] Flores to ask if he wanted to hold metoprolol dose. BP 95/58. OK to hold this dose Courtney Brito - 08/15/2017 3:26 PM EST Office of Care Management(OCM)/Disc Ruler Operator(RS)/ D/C Planning re : Patient is medically ready for d/c today. RS has been in contact with [facility] to see if they could offer a bed. [facility] is still reviewing the case and need their MD to review chart prior to accepting or declining. OCM team needs to check in with [facility] tomorrow to check on status. 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 Vac in place. Rehab [...] patient's referral to: [facility] PHONE: [phone] FAX: [phone] CM spoke with RS who said that [...] would be accepted to acute rehab at [facility] as Dr. Smith had recommended [...] rehab. Await recommendations from PT. Covering pager #[phone]. 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 Credit Risk Modeler Kaitlin Saha, RN Pager #[phone] Payam Rosales - 08/13/2017 2:37 PM EST Gum Rolling Machine Tender Encounter Note Patient Name: Gregory Hoang : [id number] MR#: [id number] Admit Date: 08/06/2017 1:41 PM Hospital Day 7 days Narrative: Visited to introduce and assess acceptance of Gum Rolling Machine Tender services. Pt was awake, alert, oriented and in chair and family was there. Assessment:Patient coping positively with stresses of illness/hospitalization at this time. Pt says that he is hoping to get better and his family was there. Pt says that he has family care and supportand taking one day at time. Intervention and Outcome: Provided emotional support and encouraging presence. 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 A letter describing our affiliations was reviewed with them and theywere educated about their right to choose where referrals are placed. Patient requests referral to [facility]. PHONE: [phone] FAX: [phone]. And Home NPWT (Negative Pressure Wound Therapy) aka wound vac device made available to pt. Serial # confirmed. Reviewed [facility] Proof of Delivery/Assignment of Benefits Statement(POD/AOB) Form w patient or authorized agent signing on behalf of patient. Copy of POD/AOB provided to pt and other copy faxed to [employer] @ fax# [phone] Expected date of discharge: 08/12/2017. 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 Address: [address] [place] [address] [place] [address] (home) Mobile: Telephone Information: Referring Provider: No [...] SETUP performed by Manny Mcknight MD at [facility] MAIN OR ??? PRO CABG, ARTERIAL, SINGLE N/A 07/07/2017 @CABG, USING ARTERIAL GRAFT;SINGLE ARTERIAL GRAFT (WRVU 33.75) performed by Yuan Retana MD at [facility] MAIN OR ??? PRO CABG, ARTERY-VEIN, TWO N/A 07/07/2017 @CABG, TWO VENOUS GRAFTS & ARTERIAL GRAFT (WRVU 7.93) performed by Yuan Retana MD at [facility] MAIN OR ??? PRO COLONOSCOPY, REMV LESN, SNARE 01/16/2014 COLONOSCOPY, POLYPECTOMY, REMOVAL LESION BY SNARE performed by Nohemi Jaimes MD at [facility] ENDOSCOPY ??? PRO ENDOSCOPY W/VIDEO-ASST VEIN HARVEST, CABG Right 07/07/2017 ENDOSCOPIC HARVEST VEIN(S) FOR CABG (WRVU 0.31) performed by Yuan Retana MD at [facility] MAIN OR ??? 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 Heparin gtt continues to run. Pt a/ox4. [...] : 1945 AGE 72 y.o. Address: [address] [place] [address] [place] [address] (home) Mobile: Telephone Information: Referring Provider: No [...] SETUP performed by Manny Mcknight MD at [facility] MAIN OR ??? PRO CABG, ARTERIAL, SINGLE N/A 07/07/2017 @CABG, USING ARTERIAL GRAFT;SINGLE ARTERIAL GRAFT (WRVU 33.75) performed by Yuan Retana MD at [facility] MAIN OR ??? PRO CABG, ARTERY-VEIN, TWO N/A 07/07/2017 @CABG, TWO VENOUS GRAFTS & ARTERIAL GRAFT (WRVU 7.93) performed by Yuan Retana MD at [facility] MAIN OR ??? PRO COLONOSCOPY, REMV LESN, SNARE 01/16/2014 COLONOSCOPY, POLYPECTOMY, REMOVAL LESION BY SNARE performed by Nohemi Jaimes MD at [facility] ENDOSCOPY ??? PRO ENDOSCOPY W/VIDEO-ASST VEIN HARVEST, CABG Right 07/07/2017 ENDOSCOPIC HARVEST VEIN(S) FOR CABG (WRVU 0.31) performed by Yuan Retana MD at [facility] MAIN OR ??? 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 Vascular resident laborer prestressed concrete and will forward result to the team prior to rounds. 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 [...] SETUP performed by Manny Mcknight MD at [facility] MAIN OR ??? PRO CABG, ARTERIAL, SINGLE N/A 07/07/2017 @CABG, USING ARTERIAL GRAFT;SINGLE ARTERIAL GRAFT (WRVU 33.75) performed by Yuan Retana MD at [facility] MAIN OR ??? PRO CABG, ARTERY-VEIN, TWO N/A 07/07/2017 @CABG, TWO VENOUS GRAFTS & ARTERIAL GRAFT (WRVU 7.93) performed by Yuan Retana MD at [facility] MAIN OR ??? PRO COLONOSCOPY, REMV LESN, SNARE 01/16/2014 COLONOSCOPY, POLYPECTOMY, REMOVAL LESION BY SNARE performed by Nohemi Jaimes MD at [facility] ENDOSCOPY ??? PRO ENDOSCOPY W/VIDEO-ASST VEIN HARVEST, CABG Right 07/07/2017 ENDOSCOPIC HARVEST VEIN(S) FOR CABG (WRVU 0.31) performed by Yuan Retana MD at [facility] MAIN OR ??? PRO THYROIDECTOMY 03/28/2013 THYROIDECTOMY, TOTAL OR COMPLETE performed by Manny Mcknight MD at [facility] MAIN OR Functional Status/Social Hx: [...] left blue toes with CTA showing R CAMERA TECHNICIAN pseudoaneurysm (now thrombosed) and occluded ATs [...] 2.5x80 5. Completion RLE angiogram 6. L CAMERA TECHNICIAN angiogram 7. 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 - L CAMERA TECHNICIAN angriogram demonstrated: High femoral bifurcation over the proximal half of the femoral head. L CAMERA TECHNICIAN access in the distal L CAMERA TECHNICIAN. - Closure device: Mynx Technical Procedure: [...] for a 45cm 5F Destination. V18 and Fortine and QuickCross catheters were used to select [...] 5F. A stationed picture of the L CAMERA TECHNICIAN was performed as the patient was noted to have a very high bifurcation. Access appeared in the distal R CAMERA TECHNICIAN. Closure and sheath removal was performed [...] PM EST 1440 report called to 5 [place] nurse Tessa AGUSTIN documented in this encounter [...] with pt and pt's spouse. Discharge to [facility]. Goal: Individualization & Mutuality Outcome: Outcome [...] -- Restraint Interventions Safety Promotion/Fall Prevention -- Makr Fall Risk History of Falling -- Secondary [...] sit/sit to supine -- Bed Mobility Goal, [place] Level independent -- Bed Mobility Goal, Date [...] days -- Transfer Training Goal, Activity Type ouk-vq-etcht/dtoil-ce-aup -- Transfer Train Goal, [place] Level conditional independence -- Transfer Train Goal, [...] call cabello within reach, Hourly rounding by RN/DRIVER UTILITY WORKER. Bed alarm / Chair alarm. Patient-specific fall [...] Smith MD - 08/15/2017 6:28 PM EST [facility] Operative Note Patient Name: Gregory Hoang : [id number] MR#: [id number] Case Date: 08/09/2017 Surgeon: Surgeon(s) and Role: [...] OUTCOME SUMMARY: Pt is A/O carrington4, Carrie IMCHELLE /. Pt required around the clock PRN [...] 2.5x80 5. Completion RLE angiogram 6. L CAMERA TECHNICIAN angiogram 7. Mynx closure Precautions/Restrictions: fall, [...] other (see comments) (or swing bed) Pager: [phone] BASSAM ELIAS, PT 08/14/2017 Inpatient Physical Therapy [...] to Achieve by discharge Gait Training Goal, [place] Level conditional independence;set up required Gait Training [...] these facilities over the weekend except for [facility]. CM spoke with [facility] CM Drea Sandhu, VAMSI who said that they do not anticipate any beds over the weekend. Reviewed with patient/ that they need to be aware that patient will need to take the first bed offered at the facilities that they make referrals to. Their choices are: 1- [facility] PHONE: [phone] FAX: [phone] 2- [facility] ([facility]) [address] [place] [address] 3- [facility]) [address] [place] [address] I have discussed Medicare/Private Insurance [...] RS/CM on Wednesday to follow-up. Covering pager #[phone] for today. Plan of Care - Henrique [...] with additional findings of pseudoaneurysm on R CAMERA TECHNICIAN and bilateral anterior tibial artery occlusions. [...] an outpatient once discharged. Have patient call [phone] to set up an appointment. Follow-up: Dermatology will sign-off for now. Please do not hesitate to contact us if you have any questions orconcerns. Impression and Recommendations discussed with primary team on 08/13/2017. Karo Henderson MD Resident in Dermatology Section of Dermatology, Department of Surgery [facility] Pager [phone] Patient seen and evaluated with staff Coiled Coil Inspector: Halima Cordero MD Section of Dermatology [facility] Level of Resident Supervision: Direct Supervision (The [...] 2.5x80 5. Completion RLE angiogram 6. L CAMERA TECHNICIAN angiogram 7. Mynx closure Active Non-Hospital [...] home with home health ([facility] PT&OT) Pager: [phone] YASIR TELLO OT 08/12/2017 Occupational Therapy Rehabilitation [...] 2.5x80 5. Completion RLE angiogram 6. L CAMERA TECHNICIAN angiogram 7. Mynx closure Past Medical [...] with 24/7 assistance and maximal services) Pager: [phone] NICHOLAS MORA, PT 08/12/2017 Physical Therapy Rehabilitation [...] sit/sit to supine -- Bed Mobility Goal, [place] Level independent -- Bed Mobility Goal, Outcome Achieved -- goal ongoing Goal: Gait Training Goal Stand Alone Therapy Goal Outcome: Ongoing (Interventions Implemented as Appropriate) 08/11/17 1310 08/12/17 1510 Gait Training Goal Gait Training Goal, Date Established 08/11/17 -- Gait Training Goal, Time to Achieve 5 - 7 days -- Gait Training Goal, [place] Level conditional independence -- Gait Training Goal, [...] days -- Transfer Training Goal, Activity Type zot-ks-xgxyg/bnadj-au-qxi -- Transfer Train Goal, [place] Level conditional independence -- Transfer Training Goal, [...] Smith MD - 08/11/2017 2:52 PM EST [facility] Operative Note Patient Name: Gregory Hoang : [id number] MR#: [id number] Case Date: 08/11/2017 Surgeon: Surgeon(s) and Role: * Yonathan Smith MD - Primary * Migdalia oMra MD - Fellow Preoperative diagnosis: open toe [...] 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 Completion RLE angiogram 6. L CAMERA TECHNICIAN angiogram 7. Mynx closure He is [...] Anticipated Discharge Disposition: inpatient rehabilitation facility Pager: [phone] LAWRENCE GONZALEZ, PT 08/11/2017 Physical Therapy Rehabilitation [...] to sit/sit to supine Bed Mobility Goal, [place] Level independent Goal: Gait Training Goal Stand Alone Therapy Goal Outcome: Ongoing (Interventions Implemented as Appropriate) 08/11/17 1310 Gait Training Goal Gait Training Goal, Date Established 08/11/17 Gait Training Goal, Time to Achieve 5 - 7 days Gait Training Goal, [place] Level conditional independence Gait Training Goal, Assist [...] 7 days Transfer Training Goal, Activity Type hzf-wq-szyyj/bzkwi-rt-ail Transfer Train Goal, [place] Level conditional independence Plan of [facility] Annetta Sandoval RN - 08/11/2017 7:21 [...] call cabello within reach, Hourly rounding by RN/DRIVER UTILITY WORKER. Bed alarm / Chair alarm. ? Patient-specific [...] 04/05/2013 Hospitalizations Within the Past 30 Days: [facility] 07/20/2017 Anticipated Length Of Stay (If known): Expected Length of Hospitalization: 5-7 days2-3 days Current Decision-Making Capacity: Alert and oriented x 4 Advance Care Planning: on file Kisha Hoang [facility] [phone] Current Coping/Education/Information Needs: pt and spouse state [...] Health/Prescription Coverage: Primary Insurance: MEDICARE Secondary Insurance: [employer] [facility] Prescription Coverage: See above Preferred Pharmacy: [id number] Other: N/A Primary Care Provider: Lovely Vicente MD [phone] Patient/Caregiver Goals of Treatment: Patient plans to return home when medically ready Potential Needs for Transition of Care: Rehab/SNF: N/A Home Health: [facility]. DME: pt has a cane and walker [...] of care planning. Kaitlin Saha RN Pager: [phone] Plan of Care - Melba Jaramillo RN [...] Overview Goal: Plan of Care Review 08/08/17 6304 Coping/Psychosocial Plan Of Care Reviewed With patient [...] call cabello within reach, Hourly rounding by RN/DRIVER UTILITY WORKER. Bed alarm / Chair alarm. Patient-specific fall [...] at bedside and MD TEAM Carrying pager [phone] contacted (via Radio page) and notified of [...] Nobles MD [facility] CARDIOLOGY [place], [place] [address] (Wo rk) 05/28/2022 Appointment Cardiology Zulma Dolan MD [facility] [place], [place] [address] (Wo rk) 05/28/2022 Laboratory Appointment Lab 05/28/2022 Office Visit Cardiology Zulma Dolan MD [facility] [place] [address] Liz Poole PA [facility] [place] [address] 06/10/2022 Office Visit Dermatology Laura Scherer MD [facility] DR TEJA [facility] OLOGY [place], [place] [address] (Wo rk) documented as of [...] section. TYPE AND SCREEN Routine 08/09/2017 1:10 ([facility]/CGP/SHANDA) AM EST BASIC [...] 65 - 199 [facility] mg/dL [facility] LABORATORY Comment: Supplemental ranges: <140 mg/dL before meals <180 mg/dL all other times of the day Specimen Anatomical Collection Method Collection Time Receive d Time (Source) Location / / Volume Laterality Blood specimen 08/16/2017 7:28 AM 018 7:28 (specimen) EST AM EST Yonathan Smith MD POINT OF CARE TEST ORDERABLE S Performing Organization Address City/State/[place] [address] (ABNORMAL) Differential, Automated (08/16/2017 5:08 AM EST) [facility] Method Time Signature Neutrophils % 73.9 % [facility] Neutr Abs (ANC) 5.37 1.70 - [facility] 6.10 [facility] x10(3)/[facility] LABORATORY Lymphocytes % 10.1 % [facility] Lymphocytes Abs 0.7 (L) 0.9 - 3.2 [facility] x10(3)/[facility] LABORATORY Monocytes % 10.1 % [facility] Monocyte Abs 0.7 0.3 - 0.9 [facility] x10(3)/[facility] LABORATORY Eosinophils % 5.1 % [facility] Eosinophils Abs 0.4 0.0 - 0.4 [facility] x10(3)/[facility] LABORATORY Basophils % 0.4 % [facility] Basophils Abs 0.0 0.0 - 0.1 [facility] x10(3)/[facility] LABORATORY Immature Gran [...] Melisa Gran Abs 0.03 0.00 - 0.04 x10(3)/[facility] MAR Y [facility] LABORATORY Specimen Anatomical Collection Method Collection Time Receive d Time (Source) Location / / Volume Laterality Blood specimen 08/16/2017 5:08 AM 018 5:20 (specimen) EST AM EST Resulting Agency Comment Spec In Lab Yonathan Smith MD HEMATOLOGY ORDERABLES Performing Organization Address City/State/[place] [address] (ABNORMAL) Hemogram (08/16/2017 5:08 AM EST) Analysis Performed At Patho logist Time Signature WBC 7.3 4.0 - 9.5 [facility] LABORATORY RBC 3.36 (L) 4.58 - [place] 5.54 [facility] x10(6)/[facility] LABORATORY Hemoglobin 9.7 (L) 13.7 - [place] 16.5 gm/dL [facility] LABORATORY Hematocrit 30.3 (L) 40.5 - [facility] 48.5 % [facility] MCV 90.2 82.9 - [facility] 93.1 [facility] LABORATORY MCH 28.9 27.5 - [place] 32.1 pg [facility] LABORATORY MCHC 32.0 32.0 - [place] [facility] 35.7 gm/dL [facility] LABORATORY Platelets 282 145 - 357 [facility] LABORATORY RDWSD 53.9 (H) 36.0 - [facility] 45.0 [facility] LABORATORY RDWCV 16.5 (H) 11.4 - [facility] SU 13.8 % [facility] LABORATORY MPV 9.0 7.6 - 12.9 [facility] LAB[facility]ATORY nRBC % Auto 0.0 % [facility] LABORATORY nRBC Abs Auto 0.000 0.000 - [place] [facility] 0.000 [facility] x10(3)/[facility] [facility] Specimen Anatomical Collection Method Collection Time Receive d Time (Source) Location / / Volume Laterality Blood specimen 08/16/2017 5:08 AM 018 5:20 (specimen) EST AM EST Resulting Agency Comment Spec In Lab Yonathan Smith MD HEMATOLOGY ORDERABLES Performing Organization Address City/State/[place] [address] (ABNORMAL) Basic Metabolic Panel (non-fasting) (08/16/2017 5:08 AM EST) athologist Signature Glucose Lvl 141 65 - 199 [facility] mg/dL [facility] LABORATORY Comment: Diabetes: >=200 mg/dL plus symp toms BUN 29 (H) 10 - 20 mg/dL [facility] LABORATORY Creatinine 1.25 0.80 - 1.50 mg/dL [facility] [...] or in patients with acute kidney failure. [email or web address] Specimen Anatomical Collection Method Collection Time Receive d Time (Source) Location / / Volume Laterality Blood specimen 08/16/2017 5:08 AM 018 5:20 (specimen) EST AM EST Resulting Agency Comment Spec In Lab Yonathan Smith MD CHEMISTRY ORDERABLES Performing Organization Address City/State/[place] [address] (ABNORMAL) Prothrombin Time (08/16/2017 [...] Smith MD HEMATOLOGY ORDERABLES Performing Organization Address City/[facility]/ZIP Code Phon e Number [address] POCT Glucose (08/16/2017 4:09 AM EST) athologist Signature POC Glucose 147 65 - [facility] LABORATORY Comment: Supplemental ranges: <140 mg/dL before meals <180 mg/dL all other times of the day Specimen Anatomical Collection Method Collection Time Receive d Time (Source) Location / / Volume Laterality Blood specimen 08/16/2017 4:09 AM 018 4:09 (specimen) EST AM EST Yonathan Smith MD POINT OF CARE TEST ORDERABLE S Performing Organization Address City/State/ZIP Code Phon e Number [address] POCT Glucose (08/15/2017 11:56 PM EST) athologist Signature POC Glucose 176 65 - 199 [facility] LABORATORY Comment: Supplemental ranges: <140 mg/dL before meals <180 mg/dL all other times of the day Specimen Anatomical Collection Method Collection Time Receive d Time (Source) Location / / Volume Laterality Blood specimen 08/15/2017 11:56 8 (specimen) PM EST 11:56 PM EST Yonathan Smith MD POINT OF CARE TEST ORDERABLE S Performing Organization Address City/State/[place] [address] POCT Glucose (08/15/2017 8:05 PM EST) athologist Signature POC Glucose 136 65 - 199 [facility] mg/dL [facility] LABORATORY Comment: Supplemental ranges: <140 mg/dL before meals <180 mg/dL all other times of the day Specimen Anatomical Collection Method Collection Time Receive d Time (Source) Location / / Volume Laterality Blood specimen 08/15/2017 8:05 PM 018 8:05 (specimen) EST PM EST Yonathan Smith MD POINT OF CARE TEST ORDERABLE S Performing Organization Address City/[facility]/[place] [address] (ABNORMAL) POCT Glucose (08/15/2017 4:50 PM EST) athologist Signature POC Glucose 232 (H) 65 - 199 [facility] SU mg/dL [facility] LABORATORY Comment: Supplemental ranges: <140 mg/dL before meals <180 mg/dL all other times of the day Specimen Anatomical Collection Method Collection Time Receive d Time (Source) Location / / Volume Laterality Blood specimen 08/15/2017 4:50 PM 018 4:50 (specimen) EST PM EST Yonathan Smith MD POINT OF CARE TEST ORDERABLE S Performing Organization Address City/State/[place] [address] POCT Glucose (08/15/2017 12:04 PM EST) athologist Signature POC Glucose 135 65 - 199 [facility] mg/dL [facility] LABORATORY Comment: Supplemental ranges: <140 mg/dL before meals <180 mg/dL all other times of the day Specimen Anatomical Collection Method Collection Time Receive d Time (Source) Location / / Volume Laterality Blood specimen 08/15/2017 12:04 8 (specimen) PM EST 12:04 PM EST Yonathan Smith MD POINT OF CARE TEST ORDERABLE S Performing Organization Address City/State/ZIP Code Phon e Number [place] [id number] [facility] LABOR[address]ORY Drive POCT Glucose (08/15/2017 7:36 AM EST) P athologist Signature POC Glucose 124 65 - 199 [facility] LABORATORY Comment: Supplemental ranges: <140 mg/dL before meals <180 mg/dL all other times of the day Specimen Anatomical Collection Method Collection Time Receive d Time (Source) Location / / Volume Laterality Blood specimen 08/15/2017 7:36 AM 018 7:36 (specimen) EST AM EST Yonathan Smith MD POINT OF CARE TEST ORDERABLE S Performing Organization Address City/State/ZIP Code Phon e Number [address] (ABNORMAL) Differential, Automated (08/15/2017 6:22 AM EST) Patholo gist Method Time Signature Neutrophils % 76.1 % [facility] LABORATORY Neutr Abs (ANC) 6.62 (H) 1.70 - [facility] 6.10 [facility] x10(3)/[facility] L LABORATORY Lymphocytes % 9.3 % [facility] LABORATORY Lymphocytes Abs 0.8 (L) 0.9 - 3.2 [facility] x10(3)/[facility] LABORATORY Monocytes % 9.4 % [facility] LABORATORY Monocyte Abs 0.8 0.3 - 0.9 [facility] x10(3)/[facility] LABORATORY Eosinophils % 4.0 % [facility] LABORATORY Eosinophils Abs 0.4 0.0 - 0.4 [facility] x10(3)/[facility] LABORATORY Basophils % 0.6 % [facility] LABORATORY Basophils Abs 0.0 0.0 - 0.1 [facility] x10(3)/[facility] LABORATORY Immature Gran [...] Gran Abs 0.05 (H) 0.00 - 0.04 x10(3)/[facility] LABORATORY Specimen Anatomical Collection Method Collection Time Receive d Time (Source) Location / / Volume Laterality Blood specimen 08/15/2017 6:22 AM 018 6:33 (specimen) EST AM EST Resulting Agency Comment Spec In Lab Yonathan Smith MD HEMATOLOGY ORDERABLES Performing Organization Address City/State/[place] [address] (ABNORMAL) Hemogram (08/15/2017 6:22 AM EST) Analysis Performed At Patho logist Time Signature WBC 8.7 4.0 - 9.5 [facility] x10(3)/[facility] LABORATORY RBC 3.21 (L) 4.58 - [facility] SU 5.54 [facility] x10(6)/[facility] LABORATORY Hemoglobin 9.1 (L) 13.7 - [facility] 16.5 gm/dL [facility] LABORATORY Hematocrit 29.0 (L) 40.5 - [facility] 48.5 % [facility] LABORATORY MCV 90.3 82.9 - [facility] 93.1 [facility] LABORATORY MCH 28.3 27.5 - [facility] SU 32.1 pg [facility] LABORATORY MCHC 31.4 (L) 32.0 - [facility] 35.7 gm/dL [facility] LABORATORY Platelets 254 145 - 357 [facility] x10(3)/[facility] LABORATORY RDWSD 53.9 (H) 36.0 - [facility] SU 45.0 [facility] LABORATORY RDWCV 16.3 (H) 11.4 - [facility] SU 13.8 % [facility] LABORATORY MPV 8.8 7.6 - 12.9 [facility] LABORATORY nRBC % Auto 0.0 % [facility] LABORATORY nRBC Abs Auto 0.000 0.000 - [facility] SU 0.000 [facility] x10(3)/[facility] LABORATORY Specimen Anatomical Collection Method Collection Time Receive d Time (Source) Location / / Volume Laterality Blood specimen 08/15/2017 6:22 AM 018 6:33 (specimen) EST AM EST Resulting Agency Comment Spec In Lab Yonathan Smith MD HEMATOLOGY ORDERABLES Performing Organization Address City/State/[place] [address] (ABNORMAL) Basic Metabolic Panel (non-fasting) (08/15/2017 6:22 AM EST) athologist Signature Glucose Lvl 118 65 - 199 [facility] mg/dL [facility] LABORATORY Comment: Diabetes: >=200 mg/dL plus [...] [facility] LABORATORY Estimated GFR >60 >=60 [facility] LABORATORY Comment: The reported eGFR should be multiplied b y 1.2 for patients. The MDRD is not an appropriate measure o f renal function for patients with body mass extremes or in patients with acute kidney failure. [email or web address] [email or web address] Specimen Anatomical Collection Method Collection Time Receive d Time (Source) Location / / Volume Laterality Blood specimen 08/15/2017 6:22 AM 018 6:33 (specimen) EST AM EST Resulting Agency Comment Spec In Lab Yonathan Smith MD CHEMISTRY ORDERABLES Performing Organization Address City/[facility]/[place] [address] (ABNORMAL) Prothrombin Time (08/15/2017 [...] Smith MD HEMATOLOGY ORDERABLES Performing Organization Address City/[facility]/[place] [address] POCT Glucose (08/15/2017 4:33 AM EST) athologist Signature POC Glucose 164 65 - 199 [facility] mg/dL [facility] LABORATORY Comment: Supplemental ranges: <140 mg/dL before meals <180 mg/dL all other times of the day Specimen Anatomical Collection Method Collection Time Receive d Time (Source) Location / / Volume Laterality Blood specimen 08/15/2017 4:33 AM 018 4:33 (specimen) EST AM EST Yonathan Smith MD POINT OF CARE TEST ORDERABLE S Performing Organization Address City/[facility]/[place] [address] POCT Glucose (08/15/2017 12:12 AM EST) athologist Signature POC Glucose 89 65 - 199 [facility] mg/dL [facility] LABORATORY Comment: Supplemental ranges: <140 mg/dL before meals <180 mg/dL all other times of the day Specimen Anatomical Collection Method Collection Time Receive d Time (Source) Location / / Volume Laterality Blood specimen 08/15/2017 12:12 8 (specimen) AM EST 12:12 AM EST Yonathan Smith MD POINT OF CARE TEST ORDERABLE S Performing Organization Address City/State/[place] [address] (ABNORMAL) POCT Glucose (08/14/2017 8:07 PM EST) athologist Signature POC Glucose 204 (H) 65 - 199 [facility] mg/dL [facility] LABORATORY Comment: Supplemental ranges: <140 mg/dL before meals <180 mg/dL all other times of the day Specimen Anatomical Collection Method Collection Time Receive d Time (Source) Location / / Volume Laterality Blood specimen 08/14/2017 8:07 PM 018 8:07 (specimen) EST PM EST Yonathan Smith MD POINT OF CARE TEST ORDERABLE S Performing Organization Address City/State/[place] [address] POCT Glucose (08/14/2017 5:11 PM EST) athologist Signature POC Glucose 174 65 - 199 [facility] mg/dL [facility] LABORATORY Comment: Supplemental ranges: <140 mg/dL before meals <180 mg/dL all other times of the day Specimen Anatomical Collection Method Collection Time Receive d Time (Source) Location / / Volume Laterality Blood specimen 08/14/2017 5:11 PM 018 5:11 (specimen) EST PM EST Yonathan Smith MD POINT OF CARE TEST ORDERABLE S Performing Organization Address City/State/[place] [address] POCT Glucose (08/14/2017 12:10 PM EST) athologist Signature POC Glucose 141 65 - 199 [facility] LABORATORY Comment: Supplemental ranges: <140 mg/dL before meals <180 mg/dL all other times of the day Specimen Anatomical Collection Method Collection Time Receive d Time (Source) Location / / Volume Laterality Blood specimen 08/14/2017 12:10 8 (specimen) PM EST 12:10 PM EST Yonathan Smith MD POINT OF CARE TEST ORDERABLE S Performing Organization Address City/State/ZIP Code Phon e Number [address] POCT Glucose (08/14/2017 8:07 AM EST) athologist [facility] POC Glucose 158 65 - 199 [facility] LABORATORY Comment: Supplemental ranges: <140 mg/dL before meals <180 mg/dL all other times of the day Specimen Anatomical Collection Method Collection Time Receive d Time (Source) Location / / Volume Laterality Blood specimen 08/14/2017 8:07 AM 018 8:07 (specimen) EST AM EST Yonathan Smith MD POINT OF CARE TEST ORDERABLE S Performing Organization Address City/State/ZIP Code Phon e Number [address] (ABNORMAL) Differential, Automated (08/14/2017 4:52 AM EST) [facility] gist Method Time Signature Neutrophils % 78.6 % [facility] LABORATORY Neutr Abs (ANC) 7.70 (H) 1.70 - [facility] 6.10 [facility] x10(3)/[facility] L LABORATORY Lymphocytes % 7.8 % [facility] LABORATORY Lymphocytes Abs 0.8 (L) 0.9 - 3.2 [facility] x10(3)/[facility] LABORATORY Monocytes % 8.8 % [facility] LABORATORY Monocyte Abs 0.9 0.3 - 0.9 [facility] x10(3)/[facility] LABORATORY Eosinophils % 4.0 % [facility] LABORATORY Eosinophils Abs 0.4 0.0 - 0.4 [facility] x10(3)/[facility] LABORATORY Basophils % 0.5 % [facility] LABORATORY Basophils Abs 0.0 0.0 - 0.1 [facility] x10(3)/[facility] LABORATORY Immature Gran [...] Melisa Gran Abs 0.03 0.00 - 0.04 x10(3)/[facility] MAR Y [facility] LABORATORY Specimen Anatomical Collection Method Collection Time Receive d Time (Source) Location / / Volume Laterality Blood specimen 08/14/2017 4:52 AM 018 5:08 (specimen) EST AM EST Resulting Agency Comment Spec In Lab Yonathan Smith MD HEMATOLOGY ORDERABLES Performing Organization Address City/State/[place] [address] (ABNORMAL) Hemogram (08/14/2017 4:52 AM EST) Analysis Performed At Patho logist Time Signature WBC 9.8 (H) 4.0 - 9.5 [facility] x10(3)/[facility] LABORATORY RBC 3.32 (L) 4.58 - [facility] 5.54 [facility] x10(6)/[facility] LABORATORY Hemoglobin 9.5 (L) 13.7 - [facility] 16[facility] gm/dL [facility] LABORATORY Hematocrit 30.3 (L) 40.5 - [facility] 48.5 % [facility] LABORATORY MCV 91.3 82.9 - [facility] 93.1 fL [facility] LABORATORY MCH 28.6 27.5 - [facility] 32.1 pg [facility] LABORATORY MCHC 31.4 (L) 32.0 - [facility] 35.7 gm/dL [facility] LABORATORY Platelets 263 145 - 357 [facility] x10(3)/[facility] LABORATORY RDWSD 54.8 (H) 36.0 - [facility] SU 45.0 [facility] LABORATORY RDWCV 16.5 (H) 11.4 - [facility] 13.8 % [facility] LABORATORY MPV 9.1 7.6 - 12.9 [facility] LABORATORY nRBC % Auto 0.0 % [facility] LABORATORY nRBC Abs Auto 0.000 0.000 - [facility] 0.000 [facility] x10(3)/[facility] LABORATORY Specimen Anatomical Collection Method Collection Time Receive d Time (Source) Location / / Volume Laterality Blood specimen 08/14/2017 4:52 AM 018 5:08 (specimen) EST AM EST Resulting Agency Comment Spec In Lab Yonathan Smith MD HEMATOLOGY ORDERABLES Performing Organization Address City/State/ZIP Code Phon e Number [address] (ABNORMAL) Prothrombin Time (08/14/2017 [...] Address City/State/[place] [address] (ABNORMAL) Basic Metabolic Panel (non-fasting) (08/14/2017 4:52 AM EST) P athologist Signature Glucose Lvl 135 65 - 199 [facility] mg/dL [facility] LABORATORY Comment: Diabetes: >=200 mg/dL plus symp toms BUN 25 (H) 10 - 20 mg/dL [facility] LABORATORY Creatinine 1.36 0.80 - 1.50 mg/dL [facility] [...] or in patients with acute kidney failure. [email or web address] [email or web address]/DHMCnkf Specimen Anatomical Collection Method Collection Time Receive d Time (Source) Location / / Volume Laterality Blood specimen 08/14/2017 4:52 AM 018 5:08 (specimen) EST AM EST Resulting Agency Comment Spec In Lab Yonathan Smith MD CHEMISTRY ORDERABLES Performing Organization Address City/State/[place] [address] POCT Glucose (08/14/2017 3:56 AM EST) athologist Signature POC Glucose 135 65 - 199 [facility] mg/dL [facility] LABORATORY Comment: Supplemental ranges: <140 mg/dL before meals <180 mg/dL all other times of the day Specimen Anatomical Collection Method Collection Time Receive d Time (Source) Location / / Volume Laterality Blood specimen 08/14/2017 3:56 AM 018 3:56 (specimen) EST AM EST Yonathan Smith MD POINT OF CARE TEST ORDERABLE S Performing Organization Address City/State/[place] [address] POCT Glucose (08/13/2017 11:13 PM EST) athologist Signature POC Glucose 118 65 - 199 [facility] mg/dL [facility] LABORATORY Comment: Supplemental ranges: <140 mg/dL before meals <180 mg/dL all other times of the day Specimen Anatomical Collection Method Collection Time Receive d Time (Source) Location / / Volume Laterality Blood specimen 08/13/2017 11:13 8 (specimen) PM EST 11:13 PM EST Yonathan Smith MD POINT OF CARE TEST ORDERABLE S Performing Organization Address City/State/[place] [address] (ABNORMAL) POCT Glucose (08/13/2017 8:08 PM EST) athologist Signature POC Glucose 204 (H) 65 - 199 [facility] mg/dL [facility] LABORATORY Comment: Supplemental ranges: <140 mg/dL before meals <180 mg/dL all other times of the day Specimen Anatomical Collection Method Collection Time Receive d Time (Source) Location / / Volume Laterality Blood specimen 08/13/2017 8:08 PM 018 8:08 (specimen) EST PM EST Yonathan Smith MD POINT OF CARE TEST ORDERABLE S Performing Organization Address City/State/ZIP Code Phon e Number [address] POCT Glucose (08/13/2017 4:02 PM EST) athologist Signature POC Glucose 145 65 - 199 [facility] mg/dL [facility] LABORATORY Comment: Supplemental ranges: <140 mg/dL before meals <180 mg/dL all other times of the day Specimen Anatomical Collection Method Collection Time Receive d Time (Source) Location / / Volume Laterality Blood specimen 08/13/2017 4:02 PM 018 4:02 (specimen) EST PM EST Yonathan Smith MD POINT OF CARE TEST ORDERABLE S Performing Organization Address City/[facility]/ZIP Code Phon e Number [address] POCT Glucose (08/13/2017 11:31 AM EST) athologist Signature POC Glucose 179 65 - 199 [facility] mg/dL [facility] LABORATORY Comment: Supplemental ranges: <140 mg/dL before meals <180 mg/dL all other times of the day Specimen Anatomical Collection Method Collection Time Receive d Time (Source) Location / / Volume Laterality Blood specimen 08/13/2017 11:31 8 (specimen) AM EST 11:31 AM EST Yonathan Smith MD POINT OF CARE TEST ORDERABLE S Performing Organization Address City/[facility]/[place] [address] (ABNORMAL) POCT Glucose (08/13/2017 10:16 AM EST) athologist Signature POC Glucose 211 (H) 65 - 199 [facility] mg/dL [facility] LABORATORY Comment: Supplemental ranges: <140 mg/dL before meals <180 mg/dL all other times of the day Specimen Anatomical Collection Method Collection Time Receive d Time (Source) Location / / Volume Laterality Blood specimen 08/13/2017 10:16 8 (specimen) AM EST 10:16 AM EST Yonathan Smith MD POINT OF CARE TEST ORDERABLE S Performing Organization Address City/State/[place] [address] JULIAN, legs, multiple levels (08/13/2017 7:42 AM EST) Component Value Ref [facility] Method Time Signature VB Text Department: Vascular Surgery Lab VASCUBASE Report Patient: [id number] (GREGORY HOANG) CPT: 48835 ICD10: I99.8 Referring Physician: YONATHAN SMITH ?? Indications: s/p R 1,2,3 toe amps with red left foot, need n ew baseline Diabetes mellitus: yes ICD10 Diagnosis Code: I99.8 Findings: Right ?Pressure (mm Hg) ?? JULIAN ??Waveform ?TBI ?? Brachial Artery ?138 ? Dorsalis Pedis (Ankle) Arter y ?132 ? 0.94 ??[place]- Biphasic ? Posterior Tibial (Ankle) Art anila ??154 ? 1.10 ??[place]-Biphasic ? Fourth Toe ? 67 ? 0.48 [...] 65 - 199 [facility] mg/dL [facility] LABORATORY Comment: Supplemental ranges: <140 mg/dL before meals <180 mg/dL all other times of the day Specimen Anatomical Collection Method Collection Time Receive d Time (Source) Location / / Volume Laterality Blood specimen 08/13/2017 7:33 AM 018 7:33 (specimen) EST AM EST Yonathan Smith MD POINT OF CARE TEST ORDERABLE S Performing Organization Address City/State/ZIP Code Phon e Number [place] [id number]OSP[address] LAB[address]ORY Drive (ABNORMAL) Differential, Automated (08/13/2017 5:33 AM EST) [facility] Method Time Signature Neutrophils % 77.8 % [facility] LABORATORY Neutr Abs (ANC) 7.83 (H) 1.70 - [facility] 6.10 [facility] x10(3)/[facility] L LABORATORY Lymphocytes % 8.4 % [facility] LABORATORY Lymphocytes Abs 0.8 (L) 0.9 - 3.2 [facility] x10(3)/[facility] LABORATORY Monocytes % 8.3 % [facility] LABORATORY Monocyte Abs 0.8 0.3 - 0.9 [facility] x10(3)/[facility] LABORATORY Eosinophils % 4.6 % [facility] LABORATORY Eosinophils Abs 0.5 (H) 0.0 - 0.4 [facility] x10(3)/[facility] LABORATORY Basophils % 0.5 % [facility] LABORATORY Basophils Abs 0.0 0.0 - 0.1 [facility] x10(3)/[facility] LABORATORY Immature Gran [...] Melisa Gran Abs 0.04 0.00 - 0.04 x10(3)/[facility] MAR Y [facility] LABORATORY Specimen Anatomical Collection Method Collection Time Receive d Time (Source) Location / / Volume Laterality Blood specimen 08/13/2017 5:33 AM 018 6:04 (specimen) EST AM EST Resulting Agency Comment Spec In Lab Yonathan Smith MD HEMATOLOGY ORDERABLES Performing Organization Address City/State/[place] [address] (ABNORMAL) Hemogram (08/13/2017 5:33 AM EST) Analysis Performed At Patho logist Time Signature WBC 10.1 (H) 4.0 - 9.5 [facility] LABORATORY RBC 3.21 (L) 4.58 - [facility] 5.54 [facility] x10(6)/[facility] LABORATORY Hemoglobin 9.2 (L) 13.7 - [facility] 16.5 gm/dL [facility] LABORATORY Hematocrit 29.6 (L) 40.5 - [facility] 48.5 % [facility] LABORATORY MCV 92.2 82.9 - [facility] 93.1 [facility] LABORATORY MCH 28.7 27.5 - [place] 32.1 pg [facility] LABORATORY MCHC 31.1 (L) 32.0 - [place] [facility] 35.7 gm/dL [facility] LABOR[facility]ORY Platelets 263 145 - 357 [facility] x10(3)/[facility] LABORATORY RDWSD 54.8 (H) 36.0 - [place] SU 45.0 [facility] LABORATORY RDWCV 16.4 (H) 11.4 - [place] SU 13.8 % [facility] LAB[facility]ORY MPV 9.2 7.6 - 12.9 [place] [facility] LABORATORY nRBC % Auto 0.0 % [facility] LABORATORY nRBC Abs Auto 0.000 0.000 - [place] [facility] 0.000 [facility] x10(3)/[facility] LABORATORY Specimen Anatomical Collection Method Collection Time Receive d Time (Source) Location / / Volume Laterality Blood specimen 08/13/2017 5:33 AM 018 6:04 (specimen) EST AM EST Resulting Agency Comment Spec In Lab Yonathan Smith MD HEMATOLOGY ORDERABLES Performing Organization Address City/State/[place] [address] (ABNORMAL) Prothrombin Time (08/13/2017 [...] Organization Address City/State/[place] [address] (ABNORMAL) Basic Metabolic Panel (non-fasting) (08/13/2017 5:33 AM EST) athologist Signature Glucose Lvl 126 65 - 199 [facility] mg/dL [facility]ORY Comment: Diabetes: >=200 mg/dL plus symp toms BUN 18 10 - 20 mg/dL [facility] LABORATORY Creatinine 1.16 0.80 - 1.50 mg/dL [facility] [...] [facility] LABORATORY Estimated GFR >60 >=60 [facility] LABORATORY Comment: The reported eGFR should be multiplied b y 1.2 for patients. The MDRD is not an appropriate measure o f renal function for patients with body mass extremes or in patients with acute kidney failure. http://[employer]/DHnkdep http://[employer]/DHMCnkf Specimen Anatomical Collection Method Collection Time Receive d Time (Source) Location / / Volume Laterality Blood specimen 08/13/2017 5:33 AM 018 6:04 (specimen) EST AM EST Resulting Agency Comment Spec In Lab Yonathan Smith MD CHEMISTRY ORDERABLES Performing Organization Address [facility] Phon e Number [address] POCT Glucose (08/13/2017 4:29 AM EST) athologist Signature POC Glucose 111 65 - [facility] Comment: Supplemental ranges: <140 mg/dL before meals <180 mg/dL all other times of the day Specimen Anatomical Collection Method Collection Time Receive d Time (Source) Location / / Volume Laterality Blood specimen 08/13/2017 4:29 AM 018 4:29 (specimen) EST AM EST Yonathan Smith MD POINT OF CARE TEST ORDERABLE S Performing Organization Address City/[facility] Phon e Number [address] POCT Glucose (08/12/2017 11:28 PM EST) athologist Signature POC Glucose 164 65 - 199 [facility] Comment: Supplemental ranges: <140 mg/dL before meals <180 mg/dL all other times of the day Specimen Anatomical Collection Method Collection Time Receive d Time (Source) Location / / Volume Laterality Blood specimen 08/12/2017 11:28 8 (specimen) PM EST 11:28 PM EST Yonathan Smith MD POINT OF CARE TEST ORDERABLE S Performing Organization Address City/State/[place] [address] (ABNORMAL) POCT Glucose (08/12/2017 7:40 PM EST) athologist Signature POC Glucose 209 (H) 65 - 199 [place] [facility] mg/dL [facility] Comment: Supplemental ranges: <140 mg/dL before meals <180 mg/dL all other times of the day Specimen Anatomical Collection Method Collection Time Receive d Time (Source) Location / / Volume Laterality Blood specimen 08/12/2017 7:40 PM 018 7:40 (specimen) EST PM EST Yonathan Smith MD POINT OF CARE TEST ORDERABLE S Performing Organization Address City/State/[place] [address] POCT Glucose (08/12/2017 4:24 PM EST) athologist Signature POC Glucose 161 65 - 199 [place] [facility] mg/dL [facility] Comment: Supplemental ranges: <140 mg/dL before meals <180 mg/dL all other times of the day Specimen Anatomical Collection Method Collection Time Receive d Time (Source) Location / / Volume Laterality Blood specimen 08/12/2017 4:24 PM 018 4:24 (specimen) EST PM EST Yonathan Smith MD POINT OF CARE TEST ORDERABLE S Performing Organization Address City/State/[place] [address] POCT Glucose (08/12/2017 12:00 PM EST) athologist Signature POC Glucose 167 65 - 199 [place] [facility] mg/dL [facility] Comment: Supplemental ranges: <140 mg/dL before meals <180 mg/dL all other times of the day Specimen Anatomical Collection Method Collection Time Receive d Time (Source) Location / / Volume Laterality Blood specimen 08/12/2017 12:00 8 (specimen) PM EST 12:00 PM EST Yonathan Smith MD POINT OF CARE TEST ORDERABLE S Performing Organization Address City/State/[place] [address] [facility] LAB[address] Drive POCT Glucose (08/12/2017 7:25 AM EST) P athologist Signature POC Glucose 152 65 - 199 [facility] mg/dL [facility] LABORATORY Comment: Supplemental ranges: <140 mg/dL before meals <180 mg/dL all other times of the day Specimen Anatomical Collection Method Collection Time Receive d Time (Source) Location / / Volume Laterality Blood specimen 08/12/2017 7:25 AM 018 7:25 (specimen) EST AM EST Yonathan Smith MD POINT OF CARE TEST ORDERABLE S Performing Organization Address City/State/ZIP Code Phon e Number [address] (ABNORMAL) Differential, Automated (08/12/2017 6:29 AM EST) Patholo gist Method Time Signature Neutrophils % 78.7 % [facility] LABORATORY Neutr Abs (ANC) 7.94 (H) 1.70 - [facility] 6.10 [facility] x10(3)/[facility] LABORATORY Lymphocytes % 8.8 % [facility] LABORATORY Lymphocytes Abs 0.9 0.9 - 3.2 [facility] x10(3)/[facility] LABORATORY Monocytes % 7.8 % [facility] LABORATORY Monocyte Abs 0.8 0.3 - 0.9 [facility] x10(3)/[facility] LABORATORY Eosinophils % 3.9 % [facility]ORY Eosinophils Abs 0.4 0.0 - 0.4 [facility] x10(3)/[facility] LABORATORY Basophils % 0.3 % [facility] LABORATORY Basophils Abs 0.0 0.0 - 0.1 [facility] x10(3)/[facility] LABORATORY Immature Gran [...] Gran Abs 0.05 (H) 0.00 - 0.04 x10(3)/[facility] LABORATORY Specimen Anatomical Collection Method Collection Time Receive d Time (Source) Location / / Volume Laterality Blood specimen 08/12/2017 6:29 AM 018 6:38 (specimen) EST AM EST Resulting Agency Comment Spec In Lab Yonathan Smith MD HEMATOLOGY ORDERABLES Performing Organization Address City/State/[place] [address] (ABNORMAL) Hemogram (08/12/2017 6:29 AM EST) Analysis Performed At Patho logist Time Signature WBC 10.1 (H) 4.0 - 9.5 [facility] x10(3)/[facility] LABORATORY RBC 3.02 (L) 4.58 - [facility] SU 5.54 [facility] x10(6)/[facility] LABORATORY Hemoglobin 8.7 (L) 13.7 - [facility] 16.5 gm/dL [facility] LAB[facility]ATORY Hematocrit 28.1 (L) 40.5 - [facility] 48.5 % [facility] MCV 93.0 82.9 - [facility]1 [facility] LABORATORY MCH 28.8 27.5 - [facility] 32.1 pg [facility]ORY MCHC 31.0 (L) 32.0 - [facility] 35.7 gm/dL [facility] LABOR[facility]ORY Platelets 223 145 - 357 [facility] x10(3)/[facility] LABORATORY RDWSD 56.1 (H) 36.0 - [facility] SU 45.0 [facility] LABORATORY RDWCV 16.4 (H) 11.4 - [facility] [employer] - Dein Lernprogramm im Leben 13.8 % [facility] LABORATORY MPV 9.0 7.6 - 12.9 [facility] LABORATORY nRBC % Auto 0.0 % [facility] LABORATORY nRBC Abs Auto 0.000 0.000 - [facility] SU 0.000 [facility] x10(3)/[facility] LABORATORY Specimen Anatomical Collection Method Collection Time Receive d Time (Source) Location / / Volume Laterality Blood specimen 08/12/2017 6:29 AM 018 6:38 (specimen) EST AM EST Resulting Agency Comment Spec In Lab Yonathan Smith MD HEMATOLOGY ORDERABLES Performing Organization Address [facility] [place] [address] (ABNORMAL) Prothrombin Time (08/12/2017 [...] Smtih MD HEMATOLOGY ORDERABLES Performing Organization Address [facility] [place] [address] (ABNORMAL) Basic Metabolic Panel (non-fasting) (08/12/2017 6:29 AM EST) athologist Signature Glucose Lvl 151 65 - 199 [facility] mg/dL [facility] LABOR[facility]ORY Comment: Diabetes: >=200 mg/dL plus symp toms BUN 18 10 - 20 mg/dL [facility] LABORATORY Creatinine 1.11 0.80 - 1.50 mg/dL [facility] [...] [facility] LABOR[facility] Estimated GFR >60 >=60 [facility] LABOR[facility]ORY Comment: The reported eGFR should be multiplied b y 1.2 for patients. The MDRD is not an appropriate measure o f renal function for patients with body mass extremes or in patients with acute kidney failure. http://[employer]/DHnkdep http://[employer]/DHMCnkf Specimen Anatomical Collection Method Collection Time Receive d Time (Source) Location / / Volume Laterality Blood specimen 08/12/2017 6:29 AM 018 6:38 (specimen) EST AM EST Resulting Agency Comment Spec In Lab Yonathan Smith MD CHEMISTRY ORDERABLES Performing Organization Address City/[facility]/[place] [address] POCT Glucose (08/12/2017 4:08 AM EST) P athologist Signature POC Glucose 181 65 - 199 [facility] mg/dL [facility] LABORATORY Comment: Supplemental ranges: <140 mg/dL before meals <180 mg/dL all other times of the day Specimen Anatomical Collection Method Collection Time Receive d Time (Source) Location / / Volume Laterality Blood specimen 08/12/2017 4:08 AM 018 4:08 (specimen) EST AM EST Yonathan Smith MD POINT OF CARE TEST ORDERABLE S Performing Organization Address City/[facility]/[place] [address] (ABNORMAL) POCT Glucose (08/12/2017 12:17 AM EST) athologist Signature POC Glucose 221 (H) 65 - 199 [place] mg/dL [facility] LABORATORY Comment: Supplemental ranges: <140 mg/dL before meals <180 mg/dL all other times of the day Specimen Anatomical Collection Method Collection Time Receive d Time (Source) Location / / Volume Laterality Blood specimen 08/12/2017 12:17 8 (specimen) AM EST 12:17 AM EST Yonathan Smith MD POINT OF CARE TEST ORDERABLE S Performing Organization Address City/State/[place] [address] (ABNORMAL) POCT Glucose (08/11/2017 8:52 PM EST) athologist Signature POC Glucose 221 (H) 65 - 199 [facility] Comment: Supplemental ranges: <140 mg/dL before meals <180 mg/dL all other times of the day Specimen Anatomical Collection Method Collection Time Receive d Time (Source) Location / / Volume Laterality Blood specimen 08/11/2017 8:52 PM 018 8:52 (specimen) EST PM EST Yonathan Smith MD POINT OF CARE TEST ORDERABLE S Performing Organization Address City/State/[place] [address] POCT Glucose (08/11/2017 5:59 PM EST) athologist Signature POC Glucose 169 65 - 199 [place] [facility] mg/dL [facility] LAB[facility]ORY Comment: Supplemental ranges: <140 mg/dL before meals <180 mg/dL all other times of the day Specimen Anatomical Collection Method Collection Time Receive d Time (Source) Location / / Volume Laterality Blood specimen 08/11/2017 5:59 PM 018 5:59 (specimen) EST PM EST Yonathan Smith MD POINT OF CARE TEST ORDERABLE S Performing Organization Address City/State/[place] [address] (ABNORMAL) POCT Glucose (08/11/2017 4:08 PM EST) P athologist Signature POC Glucose 240 (H) 65 - 199 [place] mg/dL [facility] LAB[facility]ORY Comment: Supplemental ranges: <140 mg/dL before meals <180 mg/dL all other times of the day Specimen Anatomical Collection Method Collection Time Receive d Time (Source) Location / / Volume Laterality Blood specimen 08/11/2017 4:08 PM 018 4:08 (specimen) EST PM EST Yonathan Smith MD POINT OF CARE TEST ORDERABLE S Performing Organization Address City/State/[place] [address] POCT Glucose (08/11/2017 12:04 PM EST) athologist Signature POC Glucose 182 65 - 199 [facility]dL [facility]ORY Comment: Supplemental ranges: <140 mg/dL before meals <180 mg/dL all other times of the day Specimen Anatomical Collection Method Collection Time Receive d Time (Source) Location / / Volume Laterality Blood specimen 08/11/2017 12:04 8 (specimen) PM EST 12:04 PM EST Yonathan Smith MD POINT OF CARE TEST ORDERABLE S Performing Organization Address City/State/ZIP Code Phon e Number [address] POCT Glucose (08/11/2017 7:31 AM EST) athologist Signature POC Glucose 156 65 - 199 [facility] mg/dL [facility] LAB[facility]ORY Comment: Supplemental ranges: <140 mg/dL before meals <180 mg/dL all other times of the day Specimen Anatomical Collection Method Collection Time Receive d Time (Source) Location / / Volume Laterality Blood specimen 08/11/2017 7:31 AM 018 7:31 (specimen) EST AM EST Yonathan Smith MD POINT OF CARE TEST ORDERABLE S Performing Organization Address City/State/[place] [address] (ABNORMAL) Differential, Automated (08/11/2017 6:16 AM EST) [facility] gist Method Time Signature Neutrophils % 83.7 % [facility] LABORATORY Neutr Abs (ANC) 10.76 (H) 1.70 - [facility] 6.10 [facility] x10(3)/[facility] LABORATORY Lymphocytes % 6.0 % [facility] LABORATORY Lymphocytes Abs 0.8 (L) 0.9 - 3.2 [facility] x10(3)/[facility] LABORATORY Monocytes % 7.5 % [facility] LABORATORY Monocyte Abs 1.0 (H) 0.3 - 0.9 [facility] x10(3)/[facility] LABORATORY Eosinophils % 2.0 % [facility]ORY Eosinophils Abs 0.3 0.0 - 0.4 [facility] x10(3)/[facility] LABORATORY Basophils % 0.3 % [facility] LABORATORY Basophils Abs 0.0 0.0 - 0.1 [place] 955460(3)/[facility] LABORATORY Immature Gran % 0.50 [...] Gran Abs 0.06 (H) 0.00 - 0.04 x10(3)/[facility] LABORATORY Specimen Anatomical Collection Method Collection Time Receive d Time (Source) Location / / Volume Laterality Blood specimen 08/11/2017 6:16 AM 018 6:24 (specimen) EST AM EST Resulting Agency Comment Spec In Lab Yonathan Smith MD HEMATOLOGY ORDERABLES Performing Organization Address City/State/[place] [address] (ABNORMAL) Hemogram (08/11/2017 6:16 AM EST) Analysis Performed At [facility] Time Signature WBC 12.9 (H) 4.0 - 9.5 [facility] x10(3)/[facility] LABORATORY RBC 3.28 (L) 4.58 - [place] [facility] 5.54 [facility] x10(6)/[facility] LABORATORY Hemoglobin 9.5 (L) 13.7 - [place] 16.5 gm/dL [facility] LABORATORY Hematocrit 29.8 (L) 40.5 - [place] [facility] 48.5 % [facility] LABORATORY MCV 90.9 82.9 - [facility] 93.1 [facility] LABORATORY MCH 29.0 27.5 - [place] 32.1 pg [facility] LABORATORY MCHC 31.9 (L) 32.0 - [place] [facility] 35.7 gm/dL [facility] LABORATORY Platelets 236 145 - 357 [facility] x10(3)/[facility] LABORATORY RDWSD 53.5 (H) 36.0 - [facility] SU 45.0 [facility] LABORATORY RDWCV 16.3 (H) 11.4 - [facility] SU 13.8 % [facility] LABORATORY MPV 8.8 7.6 - 12.9 [facility] LABORATORY nRBC % Auto 0.0 % [facility] LABORATORY nRBC Abs Auto 0.000 0.000 - [place] [facility] 0.000 [facility] x10(3)/[facility] LABORATORY Specimen Anatomical Collection Method Collection Time Receive d Time (Source) Location / / Volume Laterality Blood specimen 08/11/2017 6:16 AM 018 6:24 (specimen) EST AM EST Resulting Agency Comment Spec In Lab Yonathan Smith MD HEMATOLOGY ORDERABLES Performing Organization Address City/State/[place] [address] (ABNORMAL) Prothrombin Time (08/11/2017 [...] Organization Address City/State/[place] [address] Basic Metabolic Panel (non-fasting) (08/11/2017 6:16 AM EST) athologist Signature Glucose Lvl 139 65 - 199 [facility] mg/dL [facility] LABORATORY Comment: Diabetes: >=200 mg/dL plus symp toms BUN 12 10 - 20 mg/dL [facility] LABORATORY Creatinine 0.91 0.80 - 1.50 mg/dL [facility] Estimated GFR >60 >=60 [facility] LABORATORY Comment: The reported eGFR should be multiplied b y 1.2 for patients. The MDRD is not an appropriate measure o f renal function for patients with body mass extremes or in patients with acute kidney failure. http://[employer]/DHnkdep http://[employer]/DHMCnkf Specimen Anatomical Collection Method Collection Time Receive d Time (Source) Location / / Volume Laterality Blood specimen 08/11/2017 6:16 AM 018 6:24 (specimen) EST AM EST Resulting Agency Comment Spec In Lab Yonathan Smith MD CHEMISTRY ORDERABLES Performing Organization Address City/State/ZIP Code Phon e Number [address] POCT Glucose (08/11/2017 4:07 AM EST) athologist Signature POC Glucose 162 65 - 199 [place] [facility] mg/dL [facility] LABORATORY Comment: Supplemental ranges: <140 mg/dL before meals <180 mg/dL all other times of the day Specimen Anatomical Collection Method Collection Time Receive d Time (Source) Location / / Volume Laterality Blood specimen 08/11/2017 4:07 AM 018 4:07 (specimen) EST AM EST Yonathan Smith MD POINT OF CARE TEST ORDERABLE S Performing Organization Address City/State/ZIP Code Phon e Number [address] POCT Glucose (08/10/2017 11:59 PM EST) athologist Signature POC Glucose 166 65 - 199 [place] [facility] mg/dL [facility] LABORATORY Comment: Supplemental ranges: <140 mg/dL before meals <180 mg/dL all other times of the day Specimen Anatomical Collection Method Collection Time Receive d Time (Source) Location / / Volume Laterality Blood specimen 08/10/2017 11:59 8 (specimen) PM EST 11:59 PM EST Yonathan Smith MD POINT OF CARE TEST ORDERABLE S Performing Organization Address City/State/ZIP Code Phon e Number [address] POCT Glucose (08/10/2017 8:12 PM EST) athologist Signature POC Glucose 156 65 - 199 [place] [facility] mg/dL [facility] LABORATORY Comment: Supplemental ranges: <140 mg/dL before meals <180 mg/dL all other times of the day Specimen Anatomical Collection Method Collection Time Receive d Time (Source) Location / / Volume Laterality Blood specimen 08/10/2017 8:12 PM 018 8:12 (specimen) EST PM EST Yonathan Smith MD POINT OF CARE TEST ORDERABLE S Performing Organization Address City/State/[place] [address] (ABNORMAL) POCT Glucose (08/10/2017 4:42 PM EST) P athologist Signature POC Glucose 211 (H) 65 - 199 [facility] LABORATORY Comment: Supplemental ranges: <140 mg/dL before meals <180 mg/dL all other times of the day Specimen Anatomical Collection Method Collection Time Receive d Time (Source) Location / / Volume Laterality Blood specimen 08/10/2017 4:42 PM 018 4:42 (specimen) EST PM EST Yonathan Smith MD POINT OF CARE TEST ORDERABLE S Performing Organization Address City/State/[place] [address] (ABNORMAL) Differential, Automated (08/10/2017 2:30 PM EST) Patholo gist Method Time Signature Neutrophils % 87.6 % [facility] LABORATORY Neutr Abs (ANC) 9.90 (H) 1.70 - [facility] 6.10 [facility] x10(3)/[facility] LABORATORY Lymphocytes % 4.3 % [facility] LABORATORY Lymphocytes Abs 0.5 (L) 0.9 - 3.2 [facility] x10(3)/[facility] LABORATORY Monocytes % 6.0 % [facility] LABORATORY Monocyte Abs 0.7 0.3 - 0.9 [facility] x10(3)/[facility] LABORATORY Eosinophils % 1.1 % [facility] LABORATORY Eosinophils Abs 0.1 0.0 - 0.4 [facility] x10(3)/[facility] LABORATORY Basophils % 0.4 % [facility] LABORATORY Basophils Abs 0.0 0.0 - 0.1 [facility] x10(3)/[facility] LABORATORY Immature Gran [...] Gran Abs 0.07 (H) 0.00 - 0.04 x10(3)/[facility] LABORATORY Specimen Anatomical Collection Method Collection Time Receive d Time (Source) Location / / Volume Laterality Blood specimen 08/10/2017 2:30 PM 018 2:48 (specimen) EST PM EST Resulting Agency Comment Spec In Lab Yonathan Smith MD HEMATOLOGY ORDERABLES Performing Organization Address City/State/[place] [address] (ABNORMAL) Hemogram (08/10/2017 2:30 PM EST) Analysis Performed At Patho logist Time Signature WBC 11.3 (H) 4.0 - 9.5 [facility] x10(3)/[facility] LABORATORY RBC 3.13 (L) 4.58 - [facility] SU 5.54 [facility] x10(6)/[facility] LABORATORY Hemoglobin 8.9 (L) 13.7 - [facility] gm/dL [facility] LABORATORY Hematocrit 28.4 (L) 40.5 - [facility] SU 48.5 % [facility] LABORATORY MCV 90.7 82.9 - [facility] SU 93.1 [facility] LABORATORY MCH 28.4 27.5 - [place] [facility] 32.1 pg [facility] LABORATORY MCHC 31.3 (L) 32.0 - [facility] SU 35.7 gm/dL [facility] LABORATORY Platelets 213 145 - 357 [facility] x10(3)/[facility] LABORATORY RDWSD 53.7 (H) 36.0 - [facility] SU 45.0 [facility] RDWCV 16.4 (H) 11.4 - [facility] SU 13.8 % [facility] LABORATORY MPV 8.9 7.6 - 12.9 [facility] LABORATORY nRBC % Auto 0.0 % [facility] nRBC Abs Auto 0.000 0.000 - [facility] 0.000 [facility] x10(3)/[facility] LABORATORY Specimen Anatomical Collection Method Collection Time Receive d Time (Source) Location / / Volume Laterality Blood specimen 08/10/2017 2:30 PM 018 2:48 (specimen) EST PM EST Resulting Agency Comment Spec In Lab Yonathan Smith MD HEMATOLOGY ORDERABLES Performing Organization Address City/State/ZIP Code Phon e Number [address] (ABNORMAL) POCT Glucose (08/10/2017 1:50 PM EST) P athologist Signature POC Glucose 243 (H) 65 - 199 [facility] mg/dL [facility] LABORATORY Comment: Supplemental ranges: <140 mg/dL before meals <180 mg/dL all other times of the day Specimen Anatomical Collection Method Collection Time Receive d Time (Source) Location / / Volume Laterality Blood specimen 08/10/2017 1:50 PM 018 1:50 (specimen) EST PM EST Yonathan Smith MD POINT OF CARE TEST ORDERABLE S Performing Organization Address City/[facility]/[place] [address] POCT Glucose (08/10/2017 11:21 AM EST) P athologist Signature POC Glucose 156 65 - 199 [facility] LABOR[facility]ORY Comment: Supplemental ranges: <140 mg/dL before meals <180 mg/dL all other times of the day Specimen Anatomical Collection Method Collection Time Receive d Time (Source) Location / / Volume Laterality Blood specimen 08/10/2017 11:21 8 (specimen) AM EST 11:21 AM EST Yonathan Smith MD POINT OF CARE TEST ORDERABLE S Performing Organization Address City/State/[place] [address] (ABNORMAL) Differential, Automated (08/10/2017 10:28 AM EST) Patholo gist Method Time Signature Neutrophils % 85.3 % [facility] Neutr Abs (ANC) 9.43 (H) 1.70 - [facility] 6.10 [facility] x10(3)/[facility] L LABORATORY Lymphocytes % 5.5 % [facility] Lymphocytes Abs 0.6 (L) 0.9 - 3.2 [facility] x10(3)/[facility] LABORATORY Monocytes % 5.9 % [facility] Monocyte Abs 0.6 0.3 - 0.9 [facility] x10(3)/[facility] LABORATORY Eosinophils % 2.1 % [facility] Eosinophils Abs 0.2 0.0 - 0.4 [facility] x10(3)/[facility] LABORATORY Basophils % 0.4 % [facility] Basophils Abs 0.0 0.0 - 0.1 [facility] x10(3)/[facility] LABORATORY Immature Gran [...] Gran Abs 0.09 (H) 0.00 - 0.04 x10(3)/[facility] LABORATORY Specimen Anatomical Collection Method Collection Time Receive d Time (Source) Location / / Volume Laterality Blood specimen 08/10/2017 10:28 8 (specimen) AM EST 10:35 AM EST Resulting Agency Comment Spec In Lab Yonathan Smith MD HEMATOLOGY ORDERABLES Performing Organization Address City/State/[place] [address] (ABNORMAL) Hemogram (08/10/2017 10:28 AM EST) Analysis Performed At Patho logist Time Signature WBC 11.0 (H) 4.0 - 9.5 [facility] x10(3)/[facility] LABORATORY RBC 3.02 (L) 4.58 - [place] [facility] 5.54 [facility] x10(6)/[facility] LABORATORY Hemoglobin 8.8 (L) 13.7 - [facility] 16.5 gm/dL [facility]ORATORY Hematocrit 28.1 (L) 40.5 - [facility] 48.5 % [facility] MCV 93.0 82.9 - [facility] 93.1 [facility] LABORATORY MCH 29.1 27.5 - [facility] 32.1 pg [facility] LABORATORY MCHC 31.3 (L) 32.0 - [facility] 35.7 gm/dL [facility] LABORATORY Platelets 207 145 - 357 [facility] x10(3)/[facility] LABORATORY RDWSD 55.3 (H) 36.0 - [facility] SU 45.0 [facility] LABORATORY RDWCV 16.4 (H) 11.4 - [facility] 13.8 % [facility] LABORATORY MPV 9.0 7.6 - 12.9 [facility] LABORATORY nRBC % Auto 0.0 % [facility] nRBC Abs Auto 0.000 0.000 - [place] 0.000 [facility] x10(3)/[facility] LABORATORY Specimen Anatomical Collection Method Collection Time Receive d Time (Source) Location / / Volume Laterality Blood specimen 08/10/2017 10:28 8 (specimen) AM EST 10:35 AM EST Resulting Agency Comment Spec In Lab Yonathan Smith MD HEMATOLOGY ORDERABLES Performing Organization Address City/State/[place] [address] VS Angiogram/intervention (vascular) (08/10/2017 [...] 2.5x80 5. Completion RLE angiogram 6. L CAMERA TECHNICIAN angiogram 7. 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 L CAMERA TECHNICIAN access in the distal L CAMERA TECHNICIAN. - Closure device: Mynx Technical Procedure: [...] for a 45cm 5F Destination. V18 and Fortine a nd QuickCross catheters were used to [...] bifurcation. Access appeared in the distal R CAMERA TECHNICIAN. Closure and sheath removal was performed [...] 2.5x80 5. Completion RLE angiogram 6. L CAMERA TECHNICIAN angiogram 7. 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 L CAMERA TECHNICIAN access in the distal L CAMERA TECHNICIAN. - Closure device: Mynx Technical Procedure: [...] for a 45cm 5F Destination. V18 and Fortine a nd QuickCross catheters were used to [...] bifurcation. Access appeared in the distal R CAMERA TECHNICIAN. Closure and sheath removal was performed [...] AM EST) [facility] gist Method Time Signature Neutrophils % 80.1 % [facility] Neutr Abs (ANC) 9.01 (H) 1.70 - [facility] 6.10 [facility] x10(3)/[facility] L LABORATORY Lymphocytes % 8.8 % [facility] Lymphocytes Abs 1.0 0.9 - 3.2 [facility] x10(3)/[facility] LABORATORY Monocytes % 8.3 % [facility] Monocyte Abs 0.9 0.3 - 0.9 [facility] x10(3)/[facility] LABORATORY Eosinophils % 2.0 % [facility] Eosinophils Abs 0.2 0.0 - 0.4 [facility] x10(3)/[facility] LABORATORY Basophils % 0.4 % [facility] Basophils Abs 0.0 0.0 - 0.1 [facility] x10(3)/[facility] LABORATORY Immature Gran [...] Gran Abs 0.05 (H) 0.00 - 0.04 x10(3)/[facility] LABORATORY Specimen Anatomical Collection Method Collection Time Receive d Time (Source) Location / / Volume Laterality Blood specimen 08/10/2017 5:50 AM 018 5:59 (specimen) EST AM EST Resulting Agency Comment Spec In Lab Yonathan Smith MD HEMATOLOGY ORDERABLES Performing Organization Address City/State/[place] [address] (ABNORMAL) Hemogram (08/10/2017 5:50 AM EST) Analysis Performed At Patho logist Time Signature WBC 11.3 (H) 4.0 - 9.5 [facility] x10(3)/[facility] LABORATORY RBC 3.15 (L) 4.58 - [facility] SU 5.54 [facility] x10(6)/[facility] LABORATORY Hemoglobin 8.9 (L) 13.7 - [facility] 16.5 gm/dL [facility] LABORATORY Hematocrit 29.0 (L) 40.5 - [facility] SU 48.5 % [facility] LABORATORY MCV 92.1 82.9 - [facility] fL [facility] LABORATORY MCH 28.3 27.5 - [place] [facility] 32.1 pg [facility]ATORY MCHC 30.7 (L) 32.0 - [facility] 35.7 gm/dL [facility] LABORATORY Platelets 231 145 - 357 [facility] x10(3)/[facility] LABORATORY RDWSD 53.9 (H) 36.0 - [facility] 45.0 [facility] LABORATORY RDWCV 16.2 (H) 11.4 - [facility] 13.8 % [facility] LABORATORY MPV 8.7 7.6 - 12.9 [facility] LABORATORY nRBC % Auto 0.0 % [facility] nRBC Abs Auto 0.000 0.000 - [facility] 0.000 [facility] x10(3)/[facility] LABORATORY Specimen Anatomical Collection Method Collection Time Receive d Time (Source) Location / / Volume Laterality Blood specimen 08/10/2017 5:50 AM 018 5:59 (specimen) EST AM EST Resulting Agency Comment Spec In Lab Yonathan Smith MD HEMATOLOGY ORDERABLES Performing Organization Address City/State/[place] [address] (ABNORMAL) Basic Metabolic Panel (non-fasting) (08/10/2017 5:50 AM EST) P athologist Signature Glucose Lvl 135 65 - 199 [facility] mg/dL [facility] LABORATORY Comment: Diabetes: >=200 mg/dL plus [...] [facility] Estimated GFR >60 >=[address] [facility] LABORATORY Comment: The reported eGFR should be multiplied b y 1.2 for patients. The MDRD is not an appropriate measure o f renal function for patients with body mass extremes or in patients with acute kidney failure. http://[employer]/DHnkdep http://[employer]/DHMCnkf Specimen Anatomical Collection Method Collection Time Receive d Time (Source) Location / / Volume Laterality Blood specimen 08/10/2017 5:50 AM 018 5:59 (specimen) EST AM EST Resulting Agency Comment Spec In Lab Yonathan Smith MD CHEMISTRY ORDERABLES Performing Organization Address [facility] Code Phon e Number [address] (ABNORMAL) Prothrombin Time (08/10/2017 5:50 AM EST) P athologist Signature PT 16.8 (H) 11.8 - [...] Smith MD HEMATOLOGY ORDERABLES Performing Organization Address City/[facility] [place] [address] (ABNORMAL) POCT Glucose (08/10/2017 4:01 AM EST) P athologist Signature POC Glucose 206 (H) 65 - 199 [facility] mg/dL [facility] LABOR[facility]ORY Comment: Supplemental ranges: <140 mg/dL before meals <180 mg/dL all other times of the day Specimen Anatomical Collection Method Collection Time Receive d Time (Source) Location / / Volume Laterality Blood specimen 08/10/2017 4:01 AM 018 4:01 (specimen) EST AM EST Yonathan Smith MD POINT OF CARE TEST ORDERABLE S Performing Organization Address City/State/[place] [address] POCT Glucose (08/10/2017 2:01 AM EST) athologist Signature POC Glucose 188 65 - 199 [place] [facility] mg/dL [facility] LABORATORY Comment: Supplemental ranges: <140 mg/dL before meals <180 mg/dL all other times of the day Specimen Anatomical Collection Method Collection Time Receive d Time (Source) Location / / Volume Laterality Blood specimen 08/10/2017 2:01 AM 018 2:01 (specimen) EST AM EST Yonathan Smith MD POINT OF CARE TEST ORDERABLE S Performing Organization Address City/State/[place] [address] (ABNORMAL) POCT Glucose (08/09/2017 11:42 PM EST) athologist Signature POC Glucose 283 (H) 65 - 199 [place] [facility] mg/dL [facility] LAB[facility]ATORY Comment: Supplemental ranges: <140 mg/dL before meals <180 mg/dL all other times of the day Specimen Anatomical Collection Method Collection Time Receive d Time (Source) Location / / Volume Laterality Blood specimen 08/09/2017 11:42 8 (specimen) PM EST 11:42 PM EST Yonathan Smith MD POINT OF CARE TEST ORDERABLE S Performing Organization Address City/State/ZIP Code Phon e Number [address] POCT Glucose (08/09/2017 8:55 PM EST) athologist Signature POC Glucose 182 65 - 199 [place] [facility] mg/dL [facility] LABORATORY Comment: Supplemental ranges: <140 mg/dL before meals <180 mg/dL all other times of the day Specimen Anatomical Collection Method Collection Time Receive d Time (Source) Location / / Volume Laterality Blood specimen 08/09/2017 8:55 PM 018 8:55 (specimen) EST PM EST Yonathan Smith MD POINT OF CARE TEST ORDERABLE S Performing Organization Address City/State/[place] [address] (ABNORMAL) APTT (08/09/2017 6:42 [...] Address City/State/[place] [address] POCT Glucose (08/09/2017 4:41 PM EST) athologist Signature POC Glucose 195 65 - 199 [facility] LAB[facility]ATORY Comment: Supplemental ranges: <140 mg/dL before meals <180 mg/dL all other times of the day Specimen Anatomical Collection Method Collection Time Receive d Time (Source) Location / / Volume Laterality Blood specimen 08/09/2017 4:41 PM 018 4:41 (specimen) EST PM EST Yonathan Smith MD POINT OF CARE TEST ORDERABLE S Performing Organization Address City/[facility]/[place] [address] POCT Glucose (08/09/2017 12:29 PM EST) athologist Signature POC Glucose 140 65 - 199 [facility] SU mg/dL [facility] LABORATORY Comment: Supplemental ranges: <140 mg/dL before meals <180 mg/dL all other times of the day Specimen Anatomical Collection Method Collection Time Receive d Time (Source) Location / / Volume Laterality Blood specimen 08/09/2017 12:29 8 (specimen) PM EST 12:29 PM EST Yonathan Smith MD POINT OF CARE TEST ORDERABLE S Performing Organization Address City/[facility]/ZIP Code Phon e Number [address] POCT Glucose (08/09/2017 9:59 AM EST) P athologist Signature POC Glucose 135 65 - 199 [facility] mg/dL [facility] LABORATORY Comment: Supplemental ranges: <140 mg/dL before meals <180 mg/dL all other times of the day Specimen Anatomical Collection Method Collection Time Receive d Time (Source) Location / / Volume Laterality Blood specimen 08/09/2017 9:59 AM 018 9:59 (specimen) EST AM EST Yonathan Smith MD POINT OF CARE TEST ORDERABLE S Performing Organization Address City/[facility]/[place] [address] Specimen to Pathology (08/09/2017 8:41 AM EST) Specimen Anatomical Collection Method Collection Time Receive d Time (Source) Location / / Volume Laterality AP Specimen 08/09/2017 8:41 AM 8 8:41 EST AM EST [address] [facility] - 08/09/2017 8:41 AM EST Specimen requisition ordered. ??Separate Pathology report to follow Yonathan Smith MD PATHOLOGY/CYTOLOGY ORDERABLE S Performing Organization Address City/[facility]/[place] [address] Surgical Pathology Report (08/09/2017 8:40 AM EST) Component Value Ref Test Analysis Performed At Patholo gist Range Method Time Signature Surgical [id number] ? [facility]; A [facility] Report The signing pathologist has [...] Henrique Flower Verified: ??08/13/2017 ?Pathologist Performed at: ??-[facility] Dept. of Pathology, [place], [place] CLINICAL INFORMATION Specimen Submitted: A - [...] City/State/ZIP Code Phon e Number [place] [id number] HOSPITAL LAB[address]ORY Drive Anaerobic Culture (08/09/2017 8:30 AM EST) [facility] Method Time Signature Anaerobic No anaerobic [facility] Culture organisms [facility] LABORATORY Specimen Anatomical Collection Method [...] - GENERAL ORDER ROBSON Performing Organization Address City/[facility]/ZIP Code Phon e Number [place] [id number]OS[address] Drive (ABNORMAL) Abscess/Wound Aspirate Culture (08/09/2017 8:30 AM EST) [facility] Method Time Signature Abscess/Wound Moderate mixed [facility] Aspirate bacterial [place] Culture morphotypes [facility] normal LABORATORY cutaneous leroy (A) Gram Stain Rare White Blood Cells [place] Few Gram Positive Cocci in pairs [place] () [facility]ORY Organism Gram Positive [place] Cocci in pairs [place] () [facility] LABORATORY Specimen Anatomical Collection Method Collection [...] Organization Address City/State/[place] [address] POCT Glucose (08/09/2017 4:28 AM EST) P athologist Signature POC Glucose 128 65 - 199 [facility] LAB[facility]ORY Comment: Supplemental ranges: <140 mg/dL before meals <180 mg/dL all other times of the day Specimen Anatomical Collection Method Collection Time Receive d Time (Source) Location / / Volume Laterality Blood specimen 08/09/2017 4:28 AM 018 4:28 (specimen) EST AM EST Yonathan Smith MD POINT OF CARE TEST ORDERABLE S Performing Organization Address City/State/[place] [address] ABORH Recheck Status (08/09/2017 1:10 AM EST) [facility] Method Time Signature ABORH Type Completed [facility] LABORATORY Specimen Anatomical Collection Method Collection Time Receive d Time (Source) Location / / Volume Laterality Blood specimen 08/09/2017 1:10 AM 018 1:35 (specimen) EST AM EST Resulting Agency Comment Spec In Lab Yonathan Smith MD BLOOD BANK ORDERABLES Performing Organization Address City/[facility]/[place] [address] Antibody screen (08/09/2017 1:10 AM EST) [facility] Method Time Signature Ab Screen Negative [facility] LABORATORY Expires at 08/12/2017 [facility] [id number] on: [facility] LABORATORY Specimen Anatomical Collection Method Collection Time Receive d Time (Source) Location / / Volume Laterality Blood specimen 08/09/2017 1:10 AM 018 1:35 (specimen) EST AM EST Resulting Agency Comment Spec In Lab Yonathan Smith MD BLOOD BANK ORDERABLES Performing Organization Address City/State/[place] [address] ABO/Rh Typing (08/09/2017 1:10 [...] Address City/State/[place] [address] (ABNORMAL) APTT (08/09/2017 1:10 [...] Address City/State/[place] [address] (ABNORMAL) Differential, Automated (08/09/2017 1:10 AM EST) Patholo gist Method Time Signature Neutrophils % 76.2 % [facility] Neutr Abs (ANC) 8.59 (H) 1.70 - [facility] 6.10 [facility] x10(3)/[facility] LABORATORY Lymphocytes % 11.0 % [facility] Lymphocytes Abs 1.2 0.9 - 3.2 [facility] x10(3)/[facility] LABORATORY Monocytes % 8.4 % [facility] Monocyte Abs 1.0 (H) 0.3 - 0.9 [facility] x10(3)/[facility] LABORATORY Eosinophils % 3.5 % [facility] Eosinophils Abs 0.4 0.0 - 0.4 [facility] x10(3)/[facility] LABORATORY Basophils % 0.5 % [facility] Basophils Abs 0.1 0.0 - 0.1 [facility] x10(3)/[facility] LABORATORY Immature Gran [...] Gran Abs 0.05 (H) 0.00 - 0.04 x10(3)/[facility] LABORATORY Specimen Anatomical Collection Method Collection Time Receive d Time (Source) Location / / Volume Laterality Blood specimen 08/09/2017 1:10 AM 018 1:19 (specimen) EST AM EST Resulting Agency Comment Spec In Lab Yonathan Smith MD HEMATOLOGY ORDERABLES Performing Organization Address City/State/[place] [address] (ABNORMAL) Hemogram (08/09/2017 1:10 AM EST) Analysis Performed At Patho logist Time Signature WBC 11.3 (H) 4.0 - 9.5 [facility] x10(3)/[facility] LABORATORY RBC 3.47 (L) 4.58 - [facility] 5.54 [facility] x10(6)/[facility] LABORATORY Hemoglobin 10.0 (L) 13.7 - [facility] 16.5 gm/dL [facility] LABORATORY Hematocrit 31.9 (L) 40.5 - [facility] 48.5 % [facility] LABORATORY MCV 91.9 82.9 - [facility] 93.1 [facility] LABORATORY MCH 28.8 27.5 - [facility] SU 32.1 pg [facility] LABORATORY MCHC 31.3 (L) 32.0 - [facility] 35.7 gm/dL [facility] LABORATORY Platelets 234 145 - 357 [facility] x10(3)/[facility] LABORATORY RDWSD 54.0 (H) 36.0 - [facility] SU 45.0 [facility] LABORATORY RDWCV 16.2 (H) 11.4 - [facility] SU 13.8 % [facility] LABORATORY MPV 8.7 7.6 - 12.9 [facility] LABORATORY nRBC % Auto 0.0 % [facility] nRBC Abs Auto 0.000 0.000 - [facility] 0.000 [facility] x10(3)/[facility] LABORATORY Specimen Anatomical Collection Method Collection Time Receive d Time (Source) Location / / Volume Laterality Blood specimen 08/09/2017 1:10 AM 018 1:19 (specimen) EST AM EST Resulting Agency Comment Spec In Lab Yonathan Smith MD HEMATOLOGY ORDERABLES Performing Organization Address City/[facility]/[place] [address] (ABNORMAL) Prothrombin Time (08/09/2017 1:10 AM EST) athologist Signature PT 16.0 (H) 11.8 - 14.0 [place] [...] Smith MD HEMATOLOGY ORDERABLES Performing Organization Address City/[facility]/[place] [address] (ABNORMAL) Basic Metabolic Panel (non-fasting) (08/09/2017 1:10 AM EST) athologist Signature Glucose Lvl 108 65 - 199 [facility] mg/dL [facility] LABORATORY Comment: Diabetes: >=200 mg/dL plus symp toms BUN 34 (H) 10 - 20 mg/dL [facility] LABORATORY Creatinine 1.54 (H) 0.80 - 1.50 mg/dL [facility] [...] or in patients with acute kidney failure. [email or web address] http://[employer]/DHMCnkf Specimen Anatomical Collection Method Collection Time Receive d Time (Source) Location / / Volume Laterality Blood specimen 08/09/2017 1:10 AM 018 1:19 (specimen) EST AM EST Resulting Agency Comment Spec In Lab Yonathan Smith MD CHEMISTRY ORDERABLES Performing Organization Address City/[facility]/[place] [address] POCT Glucose (08/09/2017 12:05 AM EST) P athologist Signature POC Glucose 128 65 - 199 [facility] mg/dL [facility] LABORATORY Comment: Supplemental ranges: <140 mg/dL before meals <180 mg/dL all other times of the day Specimen Anatomical Collection Method Collection Time Receive d Time (Source) Location / / Volume Laterality Blood specimen 08/09/2017 12:05 8 (specimen) AM EST 12:05 AM EST Yonathan Smith MD POINT OF CARE TEST ORDERABLE S Performing Organization Address City/State/ZIP Code [place] [address] (ABNORMAL) POCT Glucose (08/08/2017 7:36 PM EST) athologist Signature POC Glucose 215 (H) 65 - 199 [facility] mg/dL [facility] LABOR[facility]ORY Comment: Supplemental ranges: <140 mg/dL before meals <180 mg/dL all other times of the day Specimen Anatomical Collection Method Collection Time Receive d Time (Source) Location / / Volume Laterality Blood specimen 08/08/2017 7:36 PM 018 7:36 (specimen) EST PM EST Yonathan Smith MD POINT OF CARE TEST ORDERABLE S Performing Organization Address City/[facility]/ZIP Code Phon e Number [address] (ABNORMAL) POCT Glucose (08/08/2017 6:23 PM EST) athologist Signature POC Glucose 216 (H) 65 - 199 [facility] mg/dL [facility] LABOR[facility]ORY Comment: Supplemental ranges: <140 mg/dL before meals <180 mg/dL all other times of the day Specimen Anatomical Collection Method Collection Time Receive d Time (Source) Location / / Volume Laterality Blood specimen 08/08/2017 6:23 PM 018 6:23 (specimen) EST PM EST Yonathan Smith MD POINT OF CARE TEST ORDERABLE S Performing Organization Address City/[facility]/[place] [address] (ABNORMAL) APTT (08/08/2017 6:00 [...] Address City/State/ZIP Code Phon e Number [address] POCT Glucose (08/08/2017 4:42 PM EST) athologist Signature POC Glucose 78 65 - 199 [facility] Comment: Supplemental ranges: <140 mg/dL before meals <180 mg/dL all other times of the day Specimen Anatomical Collection Method Collection Time Receive d Time (Source) Location / / Volume Laterality Blood specimen 08/08/2017 4:42 PM 018 4:42 (specimen) EST PM EST Yonathan Smith MD POINT OF CARE TEST ORDERABLE S Performing Organization Address City/[facility]/[place] [address] (ABNORMAL) POCT Glucose (08/08/2017 4:01 PM EST) athologist Signature POC Glucose 58 (L) 65 - 199 [facility] Comment: Supplemental ranges: <140 mg/dL before meals <180 mg/dL all other times of the day Specimen Anatomical Collection Method Collection Time Receive d Time (Source) Location / / Volume Laterality Blood specimen 08/08/2017 4:01 PM 018 4:01 (specimen) EST PM EST Yonathan Smith MD POINT OF CARE TEST ORDERABLE S Performing Organization Address City/State/[place] [address] POCT Glucose (08/08/2017 11:51 AM EST) athologist Signature POC Glucose 90 65 - 199 [facility]dL [facility] Comment: Supplemental ranges: <140 mg/dL before meals <180 mg/dL all other times of the day Specimen Anatomical Collection Method Collection Time Receive d Time (Source) Location / / Volume Laterality Blood specimen 08/08/2017 11:51 8 (specimen) AM EST 11:51 AM EST Yonathan Smith MD POINT OF CARE TEST ORDERABLE S Performing Organization Address [facility]/[place] [address] (ABNORMAL) APTT (08/08/2017 10:27 [...] Smith MD HEMATOLOGY ORDERABLES Performing Organization Address City/[facility]/[place] [address] POCT Glucose (08/08/2017 8:02 AM EST) athologist Signature POC Glucose 178 65 - 199 [facility] mg/dL [facility] Comment: Supplemental ranges: <140 mg/dL before meals <180 mg/dL all other times of the day Specimen Anatomical Collection Method Collection Time Receive d Time (Source) Location / / Volume Laterality Blood specimen 08/08/2017 8:02 AM 018 8:02 (specimen) EST AM EST Yonathan Smith MD POINT OF CARE TEST ORDERABLE S Performing Organization Address City/[facility]/[place] [address] (ABNORMAL) APTT (08/08/2017 4:51 AM EST) athologist Signature PTT >160 25 - 35 [facility] (Critical) sec [facility] Comment: Called by: HOWARD, Read [...] Organization Address City/State/[place] [address] (ABNORMAL) Differential, Automated (08/08/2017 4:51 AM EST) [facility] Method Time Signature Neutrophils % 77.9 % [facility] LABORATORY Neutr Abs (ANC) 8.17 (H) 1.70 - [facility] 6.10 [facility] x10(3)/[facility] LABORATORY Lymphocytes % 10.3 % [facility] LABORATORY Lymphocytes Abs 1.1 0.9 - 3.2 [facility] x10(3)/[facility] LABORATORY Monocytes % 7.0 % [facility] LABORATORY Monocyte Abs 0.7 0.3 - 0.9 [facility] x10(3)/[facility] LABORATORY Eosinophils % 3.6 % [facility] LABORATORY Eosinophils Abs 0.4 0.0 - 0.4 [facility] x10(3)[facility] LABORATORY Basophils % 0.5 % [facility] LABORATORY Basophils Abs 0.0 0.0 - 0.1 [facility] x10(3)[facility] LABORATORY Immature Gran % 0.70 % [...] Gran Abs 0.07 (H) 0.00 - 0.04 x10(3)/[facility] LABORATORY Specimen Anatomical Collection Method Collection Time Receive d Time (Source) Location / / Volume Laterality Blood specimen 08/08/2017 4:51 AM 018 5:14 (specimen) EST AM EST Resulting Agency Comment Spec In Lab Yonathan Smith MD HEMATOLOGY ORDERABLES Performing Organization Address City/State/[place] [address] (ABNORMAL) Hemogram (08/08/2017 4:51 AM EST) Analysis Performed At Patho logist Time Signature WBC 10.5 (H) 4.0 - 9.5 [facility] x10(3)/[facility] LABORATORY RBC 3.27 (L) 4.58 - [facility] 5.54 [facility] x10(6)/[facility] LABORATORY Hemoglobin 9.3 (L) 13.7 - [facility] 16.5 gm/dL [facility]ORY Hematocrit 30.3 (L) 40.5 - [facility] 48.5 % [facility] MCV 92.7 82.9 - [facility] 93.1 [facility] LABORATORY MCH 28.4 27.5 - [facility] 32.1 pg [facility] LABORATORY MCHC 30.7 (L) 32.0 - [facility] 35.7 gm/dL [facility] LAB[facility]ATORY Platelets 252 145 - 357 [facility] x10(3)/[facility] LABORATORY RDWSD 54.6 (H) 36.0 - [facility] 45.0 [facility] LABORATORY RDWCV 16.2 (H) 11.4 - [facility] 13.8 % [facility] LABORATORY MPV 9.1 7.6 - 12.9 [facility] LABORATORY nRBC % Auto 0.0 % [facility] LABORATORY nRBC Abs Auto 0.000 0.000 - [facility] 0.000 [facility] x10(3)/[facility] LABORATORY Specimen Anatomical Collection Method Collection Time Receive d Time (Source) Location / / Volume Laterality Blood specimen 08/08/2017 4:51 AM 018 5:14 (specimen) EST AM EST Resulting Agency Comment Spec In Lab Yonathan Smith MD HEMATOLOGY ORDERABLES Performing Organization Address City/[facility]/[place] [address] (ABNORMAL) Prothrombin Time (08/08/2017 [...] Address City/State/[place] [address] (ABNORMAL) Basic Metabolic Panel (non-fasting) (08/08/2017 4:51 AM EST) P athologist Signature Glucose Lvl 229 (H) 65 - 199 [facility] mg/dL [facility] Comment: Diabetes: >=200 mg/dL plus symp toms BUN 35 (H) 10 - 20 mg/dL [facility] LABORATORY Creatinine 1.57 (H) 0.80 - 1.50 mg/dL [facility] [...] or in patients with acute kidney failure. http://[employer]/DHnkdep http://[employer]/DHnkf Specimen Anatomical Collection Method Collection Time Receive d Time (Source) Location / / Volume Laterality Blood specimen 08/08/2017 4:51 AM 018 5:14 (specimen) EST AM EST Resulting Agency Comment Spec In Lab Yonathan Smith MD CHEMISTRY ORDERABLES Performing Organization Address City/[facility]/ZIP Code Phon e Number [address] POCT Glucose (08/08/2017 4:20 AM EST) athologist Signature POC Glucose 193 65 - [address] [facility] Comment: Supplemental ranges: <140 mg/dL before meals <180 mg/dL all other times of the day Specimen Anatomical Collection Method Collection Time Receive d Time (Source) Location / / Volume Laterality Blood specimen 08/08/2017 4:20 AM 018 4:20 (specimen) EST AM EST Yonathan Smith MD POINT OF CARE TEST ORDERABLE S Performing Organization Address City/[facility]/ZIP Code Phon e Number [address] POCT Glucose (08/07/2017 11:11 PM EST) athologist Signature POC Glucose 124 65 - 199 [facility] Comment: Supplemental ranges: <140 mg/dL before meals <180 mg/dL all other times of the day Specimen Anatomical Collection Method Collection Time Receive d Time (Source) Location / / Volume Laterality Blood specimen 08/07/2017 11:11 8 (specimen) PM EST 11:11 PM EST Yonathan Smith MD POINT OF CARE TEST ORDERABLE S Performing Organization Address City/[facility]/[place] [address] (ABNORMAL) APTT (08/07/2017 10:18 [...] Smith MD HEMATOLOGY ORDERABLES Performing Organization Address City/[facility]/[place] [address] POCT Glucose (08/07/2017 8:10 PM EST) athologist Signature POC Glucose 140 65 - 199 [facility] mg/dL [facility] Comment: Supplemental ranges: <140 mg/dL before meals <180 mg/dL all other times of the day Specimen Anatomical Collection Method Collection Time Receive d Time (Source) Location / / Volume Laterality Blood specimen 08/07/2017 8:10 PM 018 8:10 (specimen) EST PM EST Yonathan Smith MD POINT OF CARE TEST ORDERABLE S Performing Organization Address City/[facility]/[place] [address] POCT Glucose (08/07/2017 5:27 PM EST) athologist Signature POC Glucose 187 65 - 199 [facility] mg/dL [facility] LAB[facility] Comment: Supplemental ranges: <140 mg/dL before meals <180 mg/dL all other times of the day Specimen Anatomical Collection Method Collection Time Receive d Time (Source) Location / / Volume Laterality Blood specimen 08/07/2017 5:27 PM 018 5:27 (specimen) EST PM EST Yonathan Smith MD POINT OF CARE TEST ORDERABLE S Performing Organization Address City/[facility]/ZIP Code Phon e Number [address] POCT Glucose (08/07/2017 3:29 PM EST) athologist Signature POC Glucose 86 65 - 199 [facility] mg/dL [facility] Comment: Supplemental ranges: <140 mg/dL before meals <180 mg/dL all other times of the day Specimen Anatomical Collection Method Collection Time Receive d Time (Source) Location / / Volume Laterality Blood specimen 08/07/2017 3:29 PM 018 3:29 (specimen) EST PM EST Yonathan Smith MD POINT OF CARE TEST ORDERABLE S Performing Organization Address [facility]/ZIP Code Phon e Number [address] (ABNORMAL) APTT (08/07/2017 2:50 PM [...] Smith MD HEMATOLOGY ORDERABLES Performing Organization Address City/[facility]/ZIP Code Phon e Number [address] (ABNORMAL) POCT Glucose (08/07/2017 2:23 PM EST) athologist Signature POC Glucose 55 (L) 65 - 199 [facility] Comment: Supplemental ranges: <140 mg/dL before meals <180 mg/dL all other times of the day Specimen Anatomical Collection Method Collection Time Receive d Time (Source) Location / / Volume Laterality Blood specimen 08/07/2017 2:23 PM 018 2:23 (specimen) EST PM EST Yonathan Smith MD POINT OF CARE TEST ORDERABLE S Performing Organization Address City/State/ZIP Code Phon e Number [address] POCT Glucose (08/07/2017 12:08 PM EST) athologist Signature POC Glucose 77 65 - 199 [facility] Comment: Supplemental ranges: <140 mg/dL before meals <180 mg/dL all other times of the day Specimen Anatomical Collection Method Collection Time Receive d Time (Source) Location / / Volume Laterality Blood specimen 08/07/2017 12:08 8 (specimen) PM EST 12:08 PM EST Yonathan Smith MD POINT OF CARE TEST ORDERABLE S Performing Organization Address City/State/ZIP Code Phon e Number [address] (ABNORMAL) Differential, Automated (08/07/2017 7:30 AM EST) [facility] gist Method Time Signature Neutrophils % 73.8 % [facility] LABORATORY Neutr Abs (ANC) 7.17 (H) 1.70 - [facility] 6.10 [facility] x10(3)/[facility] LABORATORY Lymphocytes % 12.2 % [facility] LABORATORY Lymphocytes Abs 1.2 0.9 - 3.2 [facility] x10(3)/[facility] LABORATORY Monocytes % 9.0 % [facility] LABORATORY Monocyte Abs 0.9 0.3 - 0.9 [facility] x10(3)/[facility] LABORATORY Eosinophils % 3.9 % [facility] LABORATORY Eosinophils Abs 0.4 0.0 - 0.4 [facility] x10(3)/[facility] LABORATORY Basophils % 0.6 % [facility] LABORATORY Basophils Abs 0.1 0.0 - 0.1 [facility] x10(3)/[facility] LABORATORY Immature Gran [...] Gran Abs 0.05 (H) 0.00 - 0.04 x10(3)/[facility] LABORATORY Specimen Anatomical Collection Method Collection Time Receive d Time (Source) Location / / Volume Laterality Blood specimen 08/07/2017 7:30 AM 018 7:45 (specimen) EST AM EST Resulting Agency Comment Spec In Lab Yonathan Smith MD HEMATOLOGY ORDERABLES Performing Organization Address City/State/ZIP Code Phon e Number [place] [id number] (ABNORMAL) Hemogram (08/07/2017 7:30 AM EST) Analysis Performed At Patho logist Time Signature WBC 9.7 (H) 4.0 - 9.5 [facility] x10(3)/[facility] LABORATORY RBC 3.54 (L) 4.58 - [facility] 5.54 [facility] x10(6)/[facility] LABORATORY Hemoglobin 9.9 (L) 13.7 - [facility] 16.5 gm/dL [facility] LABORATORY Hematocrit 32.3 (L) 40.5 - [facility] 48.5 % [facility] LABORATORY MCV 91.2 82.9 - [facility] 93.1 fL [facility] LABORATORY MCH 28.0 27.5 - [facility] 32.1 pg [facility] LABORATORY MCHC 30.7 (L) 32.0 - [facility] 35.7 gm/dL [facility] LABORATORY Platelets 312 145 - 357 [facility] x10(3)/[facility] LABORATORY RDWSD 53.2 (H) 36.0 - [facility] 45.0 [facility] LABORATORY RDWCV 16.0 (H) 11.4 - [facility] 13.8 % [facility] LABORATORY MPV 8.9 7.6 - 12.9 [facility] LABORATORY nRBC % Auto 0.0 % [facility] LABORATORY nRBC Abs Auto 0.000 0.000 - [facility] 0.000 [facility] x10(3)/[facility] LABORATORY Specimen Anatomical Collection Method Collection Time Receive d Time (Source) Location / / Volume Laterality Blood specimen 08/07/2017 7:30 AM 018 7:45 (specimen) EST AM EST Resulting Agency Comment Spec In Lab Yonathan Smith MD HEMATOLOGY ORDERABLES Performing Organization Address City/State/[place] [address] (ABNORMAL) Basic Metabolic Panel (non-fasting) (08/07/2017 7:30 AM EST) P athologist Signature Glucose Lvl 80 65 - 199 [facility] mg/dL [facility] LABOR[facility]ORY Comment: Diabetes: >=200 mg/dL plus symp toms BUN 31 (H) 10 - 20 mg/dL [facility] LABORATORY Creatinine 1.22 0.80 - 1.50 mg/dL [facility] [...] Calcium 8.5 8.5 - 10.5 mg/dL [facility] LAB[facility]ORY Estimated GFR 59 (L) >=[address] [facility] LAB[facility] Comment: The reported eGFR should be multiplied b y 1.2 for patients. The MDRD is not an appropriate measure o f renal function for patients with body mass extremes or in patients with acute kidney failure. http://[employer]/DHnkdep http://[employer]/DHMCnkf Specimen Anatomical Collection Method Collection Time Receive d Time (Source) Location / / Volume Laterality Blood specimen 08/07/2017 7:30 AM 018 7:45 (specimen) EST AM EST Resulting Agency Comment Spec In Lab Yonathan Smith MD CHEMISTRY ORDERABLES Performing Organization Address City/[facility] Phon e Number [address] POCT Glucose (08/07/2017 7:27 AM EST) athologist Signature POC Glucose 81 65 - 199 [facility] mg/dL [facility] LABORATORY Comment: Supplemental ranges: <140 mg/dL before meals <180 mg/dL all other times of the day Specimen Anatomical Collection Method Collection Time Receive d Time (Source) Location / / Volume Laterality Blood specimen 08/07/2017 7:27 AM 018 7:27 (specimen) EST AM EST Yonathan Smith MD POINT OF CARE TEST ORDERABLE S Performing Organization Address City/[facility]/ZIP Code Phon e Number [address] APTT (08/07/2017 7:04 AM [...] Smith MD HEMATOLOGY ORDERABLES Performing Organization Address City/[facility]/[place] [address] (ABNORMAL) Prothrombin Time (08/07/2017 [...] Smith MD HEMATOLOGY ORDERABLES Performing Organization Address City/[facility]/[place] [address] POCT Glucose (08/07/2017 4:03 AM EST) athologist Signature POC Glucose 93 65 - 199 [facility] mg/dL [facility] LAB[facility]ORY Comment: Supplemental ranges: <140 mg/dL before meals <180 mg/dL all other times of the day Specimen Anatomical Collection Method Collection Time Receive d Time (Source) Location / / Volume Laterality Blood specimen 08/07/2017 4:03 AM 018 4:03 (specimen) EST AM EST Yonathan Smith MD POINT OF CARE TEST ORDERABLE S Performing Organization Address City/[facility]/[place] [address] POCT Glucose (08/07/2017 12:04 AM EST) P athologist Signature POC Glucose 107 65 - 199 [facility] Comment: Supplemental ranges: <140 mg/dL before meals <180 mg/dL all other times of the day Specimen Anatomical Collection Method Collection Time Receive d Time (Source) Location / / Volume Laterality Blood specimen 08/07/2017 12:04 8 (specimen) AM EST 12:04 AM EST Yonathan Smith MD POINT OF CARE TEST ORDERABLE S Performing Organization Address City/[facility]/ZIP Code Phon e Number [address] POCT Glucose (08/06/2017 7:56 PM EST) P athologist Signature POC Glucose 178 65 - [facility]ORY Comment: Supplemental ranges: <140 mg/dL before meals <180 mg/dL all other times of the day Specimen Anatomical Collection Method Collection Time Receive d Time (Source) Location / / Volume Laterality Blood specimen 08/06/2017 7:56 PM 018 7:56 (specimen) EST PM EST Yonathan Smith MD POINT OF CARE TEST ORDERABLE S Performing Organization Address City/[facility]/[place] [address] [id number] (08/06/2017 2:32 PM EST) Component Value Ref [facility] Method Time Signature VB Text Department: Vascular Surgery Lab VASCUBASE Report Patient: [id number] (GREGORY HOANG) CPT: 5568532 ICD10: I99.8 Referring Physician: YONATHAN SMITH ?? [...] Intravenous, BOLUS PER HEPARIN PROTOCOL, Starting on 08/07/17 at 0723, Until Wed08/10/17 at 1122, Per [...] Units/hr (0-100 mL/hr), Intravenous, CONTINUOUS, Starting on 08/07/18 at 0745, Until Wed08/10/17 at 1122, Begin [...] dose (after last modification) on Wed08/07/17 at 0800, Until Discontinued, [employer] If [...] 3 mg, Oral, NIGHTLY, First dose on Wed08/08/17 at 2100, Until Discontinued, Routine Given 08/12/2017 [...] 2.5 mg, Oral, ONCE, 1 dose, On 08/13/17 at 1700, Routine warfarin (COUMADIN) tablet 2.5 [...] Provider: Chiquis Mcgrath RN)1708 (Given - Provider: Cihquis Mcgrath, VAMSI) 0749 (Given - Provider: Dory [...] Marks RN)0800 (Not Given - Provider: Chiquis A Linfield, RN - Reason: Order parameters not met [...] Mcgrath RN)2024 (Given - Provider: Mira Truong, VAMSI) 0800 [...] Marks, VAMSI) 0808 (Given - Provider: Chiquis Mcgarth, VAMSI)2024 (Given - Provider: Mira Truong, RN) [...]
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
--- OUTSIDE RECORDS SUMMARY | 2022-03-11 11:27 | XMS_ITS | Encounter Summary ---
:1945 Author Organization [facility] [place] [address] Care Team Providers Name Role Phone Lovely Vicente MD Primary Care Provider Encounter Details Date Type Department Care Team Description 08/19/2017 Hospital Encounter XRay at [facility] Martha Teague, S/P CABG x 3 [address] [facility] [place] [address] [place] [address] RD [phone] GENERAL [facility] MED[facility]INE [place], [place] [address] (Wo rk) Social History [...] Nobles MD [facility] CARDIOLOGY [place], [place] [address] (Wo rk) 05/28/2022 Appointment Cardiology Zulma Dolan MD [facility] [address] [place], [place] [address] (Wo rk) 05/28/2022 Laboratory Appointment Lab 05/28/2022 Office Visit Cardiology Zulma Dolan MD [facility] [place] [address] Liz Poole PA [facility] [place] [address] 06/10/2022 Office Visit Dermatology Laura Scherer MD [facility] [address] [place], [place] [address] (Wo rk) documented as [...] 2017 EXAMINATION: XR CHEST PA AND LATERAL (WindowfarmsIC) CLINICAL HISTORY: CABG x 3 TECHNIQUE: PA [...] status documented in this encounter Care Teams Concessions Manager Relationship Specialty Start Date End Date Lovely Vicente MD PCP - General 04/16/15 [address] [facility] [address] [place] [address] documented as of this encounter
--- OUTSIDE RECORDS SUMMARY | 2022-03-11 11:27 | XMS_ITS | Encounter Summary ---
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 SCIENTIST disease) [facility] [address] [place] VASCULAR SURGERY [id number] [place] [address] [phone] Social History Tobacco Use Types Packs/Day Years [...] MD [facility] [address] [place], [place] [address] (Wo rk) 05/28/2022 Appointment Cardiology Zulma Dolan MD [facility] Dr [place], [place] [address] (Wo rk) 05/28/2022 Laboratory Appointment Lab 05/28/2022 Office Visit Cardiology Zulma Dolan [place] [address] Liz Poole PA [facility] [place] [address] 06/10/2022 Office Visit Dermatology Laura Scherer MD [facility] [address] [place], [place] [address] (Wo rk) documented as of this encounter Visit Diagnoses Diagnosis PAD (peripheral artery disease) Peripheral vascular disease, unspecified documented in this encounter Care Teams Fan Mail Editor Relationship Specialty Start Date End Date Lovely Vicente MD PCP - General 04/16/[address] [place] [address] documented as of this encounter
--- OUTSIDE RECORDS SUMMARY | 2022-03-11 11:28 | XMS_ITS | Encounter Summary ---
:1945 Author Organization [facility] [place] [address] Care Team Providers Name Role Phone Lovely Vicente MD Primary Care Provider Reason for Visit Auth/Cert Specialty Diagnoses / Procedures Referred By Contact Refer red To Contact Diagnoses Critical lower limb ischemia CELLULITIS RT FOOT Procedures EMERGENCY Referral ID Status Reason Start Date Expiration Date Visits Requ ested Visits Authorized [id number] 1 1 Encounter Details Date Type Department Care Team Description 08/11/2017 Surgery Main Operating Room Yonathan Smith (M SURG) DRESSING CHANGE Barbara Ocampo MD (FOR OTHER THAN IVAN) [facility] UNDER ANES. 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 [...] Dorsalis Pedis (Ankle) Artery ?132 ? 0.94 ??Uintah-Biphasic ? Posterior Tibial (Ankle) Artery ??154 ? 1.10 ??Uintah-Biphasic ? Fourth Toe ? 67 ?0.48 ?? [...] Discharge Conditions/Prognosis: Good Discharge to: [facility] Rehab Discharge Medications: Your Medications New Medications [...] For any problems or questions please call [phone] ZELDA Smith, reimbursement analyst Nurse Clinician For issues on weeknights after 5pm and weekends please call [phone] and ask for the Vascular Fellow motion study engineer. General Instructions None Future Appointments and Orders Future Appointments Provider Department Dept Phone 08/26/2017 4:00 PM Aurelia Rivera PA [facility] [place] [phone] 09/07/2017 3:00 PM LAB, THREE L Lab 3L [facility] [phone] 09/07/2017 4:00 PM Luz Prescott MD Endocrinology at [place] [phone] 09/09/2017 8:00 AM Barbra Soares APRN Pain Management [facility] [place] [phone] Please bring a list of your current [...] For any problems or questions please call [phone] ZELDA Smith, reimbursement analyst Nurse Clinician For issues on weeknights after 5pm and weekends please call [phone] and ask for the Vascular Fellow motion study engineer. documented in this encounter Medications at [...] Note Patient Destination: [facility] [address] [place] [id number] Transportation: with (at bedside) Time of Discharge: by 12 noon Level of Care: swing Patient Aware: yes Family Notified: yes Md to call report to: Yissel Quintero MOBILE LAB TECHNICIAN already called RN to call report to: [phone] Shirin Wolf Office of Care Management Pager [phone] Shirin Wagner RN - 08/16/2017 10:50 AM EST [facility] has offered pt swing bed. Pt and accept bed. will transport via car. MOBILE LAB TECHNICIAN Yissel Quintero aware; d/c paperwork will be completed by 12 noon. [facility] requests pt arrival by 1400 today; MOBILE LAB TECHNICIAN, RN, and family aware. MOBILE LAB TECHNICIAN called [facility] and was told that they prefer pt to arrive with wound vac dressing applied but clamped. MOBILE LAB TECHNICIAN applied new wound vac dressing. RN has [facility] number to call report. PASSR completed; MOBILE LAB TECHNICIAN paged to request provider signature in highlighted space. Indigo from [facility] notified via email that home wound vac now cancelled; [facility] has picked up from room and order cancelled. Packet started and provided to corrections unit supervisor. Medicare important message explained to patient, patient signed. Copy provided to patient and signature page to OCM for inclusion in pt EMR. Radha Georges - 08/16/2017 10:34 AM EST Office of Care Management/Med Surg Rn Patient Name: Gregory Hoang : 1945 Patient has been offered a swing bed at [facility]. The patient will be transported by private transportation. No MD to MD report necessary Please call Nursing Report to [phone], ask for food service kitchen supervisor. Info to accompany patient: Narcotic Prescriptions Copies of Medication Administration Records and IV sheets for past 10 days. Plan: Med Surg Rn will be available to the patient and Licensed Psychologist-RN and/or Cheese Maker for further assistance. Patient will be discharged to: [facility] [address] [place] [id number] Radha Powers, Med Surg Rn Mira Black, VAMSI - 08/15/2017 10:05 PM EST [address] Flores to ask if he wanted to hold metoprolol dose. BP 95/58. OK to hold this dose Courtney Brito - 08/15/2017 3:26 PM EST Office of Care Management(OCM)/Med Surg Rn(RS)/ D/C Planning re : Patient is medically ready for d/c today. RS has been in contact with [facility] to see if they could offer a bed. [facility] is still reviewing the case and need their MD to review chart prior to accepting or declining. OCM team needs to check in with [place] tomorrow to check on status. 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 Vac in place. Rehab [...] would like information about patient's referral to: [facility] PHONE: [phone] FAX: [phone] CM spoke with RS who said that [...] would be accepted to acute rehab at [facility] as Dr. Smith had recommended . [...] rehab. Await recommendations from PT. Covering pager #[phone]. 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 CM provided pt with deelmira, and answered procedure for rehab referral. Pt states he will think about it and let OCM know if he wants to do rehab instead of going home with [facility] services. Loan Adviser Kaitlin Saha, RN Pager #[phone] Payam Rosales - 08/13/2017 2:37 PM EST Sponsorship Manager Encounter Note Patient Name: Gregory Hoang : [id number] MR#: [id number] Admit Date: 08/06/2017 1:41 PM Hospital Day 7 days Narrative: Visited to introduce and assess acceptance of Sponsorship Manager services. Pt was awake, alert, oriented and in chair and family was there. Assessment:Patient coping positively with stresses of illness/hospitalization at this time. Pt says that he is hoping to get better and his family was there. Pt says that he has family care and supportand taking one day at time. Intervention and Outcome: Provided emotional support and encouraging presence. 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 A letter describing our affiliations was reviewed with them and theywere educated about their right to choose where referrals are placed. Patient requests referral to [facility] PHONE: [phone] FAX: [phone]. And Home NPWT (Negative Pressure Wound Therapy) aka wound vac device made available to pt. Serial # confirmed. Reviewed [facility] Proof of Delivery/Assignment of Benefits Statement(POD/AOB) Form w patient or authorized agent signing on behalf of patient. Copy of POD/AOB provided to pt and other copy faxed to [employer] @ fax# [phone] Expected date of discharge: 08/12/2017. 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 Address: [address] [place] [address] [place] [address] (home) Mobile: Telephone Information: Referring Provider: No [...] SETUP performed by Manny Mcknight MD at [facility] MAIN OR ??? PRO CABG, ARTERIAL, SINGLE N/A 07/07/2017 @CABG, USING ARTERIAL GRAFT;SINGLE ARTERIAL GRAFT (WRVU 33.75) performed by Yuan Retana MD at [facility] MAIN OR ??? PRO CABG, ARTERY-VEIN, TWO N/A 07/07/2017 @CABG, TWO VENOUS GRAFTS & ARTERIAL GRAFT (WRVU 7.93) performed by Yuan Retana MD at [facility] MAIN OR ??? PRO COLONOSCOPY, REMV LESN, SNARE 01/16/2014 COLONOSCOPY, POLYPECTOMY, REMOVAL LESION BY SNARE performed by Nohemi Jaimes MD at [facility] ENDOSCOPY ??? PRO ENDOSCOPY W/VIDEO-ASST VEIN HARVEST, CABG Right 07/07/2017 ENDOSCOPIC HARVEST VEIN(S) FOR CABG (WRVU 0.31) performed by Yuan Retana MD at [facility] MAIN OR ??? 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 Heparin gtt continues to run. [...] : 1945 AGE 72 y.o. Address: [address] [place] [address] [place] [address] (home) Mobile: Telephone Information: Referring Provider: No [...] SETUP performed by Manny Mcknight MD at [facility] MAIN OR ??? PRO CABG, ARTERIAL, SINGLE N/A 07/07/2017 @CABG, USING ARTERIAL GRAFT;SINGLE ARTERIAL GRAFT (WRVU 33.75) performed by Yuan Retana MD at [facility] MAIN OR ??? PRO CABG, ARTERY-VEIN, TWO N/A 07/07/2017 @CABG, TWO VENOUS GRAFTS & ARTERIAL GRAFT (WRVU 7.93) performed by Yuan Retana MD at [facility] OR ??? PRO COLONOSCOPY, REMV LESN, SNARE 01/16/2014 COLONOSCOPY, POLYPECTOMY, REMOVAL LESION BY SNARE performed by Nohemi Jaimes MD at [facility] ENDOSCOPY ??? PRO ENDOSCOPY W/VIDEO-ASST VEIN HARVEST, CABG Right 07/07/2017 ENDOSCOPIC HARVEST VEIN(S) FOR CABG (WRVU 0.31) performed by Yuan Retana MD at [facility] MAIN OR ??? PRO THYROIDECTOMY 03/28/2013 THYROIDECTOMY, TOTAL OR COMPLETE performed by Manny Mcknight MD at [facility] MAIN OR Date/Procedure Meds given/comments [...] on 08/04/2017 10/04/12 Rigoberto Garcia III, MD Ntay Crowder RN - 08/09/2017 10:19 AM EST 0915- RLE elevated x1 pillow. Naty Crowder RN - 08/09/2017 10:03 AM EST 1000- Pt etrrance sips of H2O. 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 Vascular resident motion study engineer and will forward result to the team prior to rounds. 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 [...] SETUP performed by Manny Mcknight MD at [facility] MAIN OR ??? PRO CABG, ARTERIAL, SINGLE N/A 07/07/2017 @CABG, USING ARTERIAL GRAFT;SINGLE ARTERIAL GRAFT (WRVU 33.75) performed by Yuan Retana MD at [facility] MAIN OR ??? PRO CABG, ARTERY-VEIN, TWO N/A 07/07/2017 @CABG, TWO VENOUS GRAFTS & ARTERIAL GRAFT (WRVU 7.93) performed by Yuan Retana MD at [facility] MAIN OR ??? PRO COLONOSCOPY, REMV LESN, SNARE 01/16/2014 COLONOSCOPY, POLYPECTOMY, REMOVAL LESION BY SNARE performed by Nohemi Jaimes MD at [facility] ENDOSCOPY ??? PRO ENDOSCOPY W/VIDEO-ASST VEIN HARVEST, CABG Right 07/07/2017 ENDOSCOPIC HARVEST VEIN(S) FOR CABG (WRVU 0.31) performed by Yuan Retana MD at [facility] MAIN OR ??? PRO THYROIDECTOMY 03/28/2013 THYROIDECTOMY, TOTAL OR COMPLETE performed by Manny Mcknight MD at [facility] MAIN OR Functional Status/Social Hx: [...] left blue toes with CTA showing R SENIOR CENTER MANAGER pseudoaneurysm (now thrombosed) and occluded ATs [...] 2.5x80 5. Completion RLE angiogram 6. L SENIOR CENTER MANAGER angiogram 7. 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 - L SENIOR CENTER MANAGER angriogram demonstrated: High femoral bifurcation over the proximal half of the femoral head. L SENIOR CENTER MANAGER access in the distal L SENIOR CENTER MANAGER. - Closure device: Mynx Technical Procedure: [...] for a 45cm 5F Destination. V18 and Mclean and QuickCross catheters were used to select [...] 5F. A stationed picture of the L SENIOR CENTER MANAGER was performed as the patient was noted to have a very high bifurcation. Access appeared in the distal R SENIOR CENTER MANAGER. Closure and sheath removal was performed [...] PM EST 1440 report called to 5 [place] nurse Tessa AGUSTIN documented in this encounter Miscellaneous Notes Plan of Care - Dory Truong RN - 08/16/2017 10:51 AM EST Problem: Patient Care Overview Goal: Plan of Care Review Outcome: Outcome (s) achieved Date Met: 08/16/17 08/14/17 1939 08/16/17 8241 Coping/Psychosocial Plan Of Care Reviewed With -- patient Plan of Care Review Progress improving -- Discussed discharge instructions with pt and pt's spouse. Discharge to [facility]. Goal: Individualization & Mutuality Outcome: Outcome (s) [...] sit/sit to supine -- Bed Mobility Goal, Tensas Level independent -- Bed Mobility Goal, Date [...] days -- Transfer Training Goal, Activity Type onn-xt-abhzf/jsexb-jh-aog -- Transfer Train Goal, Tensas Level conditional independence -- Transfer Train Goal, [...] call cabello within reach, Hourly rounding by RN/HEEL PADDER. Bed alarm / Chair alarm. Patient-specific fall [...] Smith MD - 08/15/2017 6:28 PM EST [facility] Operative Note Patient Name: Gregory Hoang : [id number] MR#: [id number] Case Date: 08/09/2017 Surgeon: Surgeon(s) and Role: [...] 2.5x80 5. Completion RLE angiogram 6. L SENIOR CENTER MANAGER angiogram 7. Mynx closure Precautions/Restrictions: fall, [...] other (see comments) (or swing bed) Pager: [phone] BASSAM ELIAS, PT 08/14/2017 Inpatient Physical Therapy [...] to Achieve by discharge Gait Training Goal, Tensas Level conditional independence;set up required Gait Training [...] over the weekend except for [facility]. CM spoke with [facility] KANWAL Sandhu RN who said that they do not anticipate any beds over the weekend. Reviewed with patient/ that they need to be aware that patient will need to take the first bed offered at the facilities that they make referrals to. Their choices are: 1- [facility] PHONE: [phone] FAX: [phone] 2- [facility] ([facility]) [address] [place] [address] 3- [facility]) [address] [place] [address] I have discussed Medicare/Private Insurance [...] RS/CM on Wednesday to follow-up. Covering pager #[phone] for today. Plan of Care - Henrique [...] with additional findings of pseudoaneurysm on R SENIOR CENTER MANAGER and bilateral anterior tibial artery occlusions. [...] an outpatient once discharged. Have patient call [phone] to set up an appointment. Follow-up: Dermatology will sign-off for now. Please do not hesitate to contact us if you have any questions orconcerns. Impression and Recommendations discussed with primary team on 08/13/2017. Karo Henderson MD Resident in Dermatology Section of Dermatology, Department of Surgery [facility] Pager [phone] Patient seen and evaluated with staff Computer Network Engineer: Halima Cordero MD Section of Dermatology [facility] Level of Resident Supervision: Direct Supervision [...] 2.5x80 5. Completion RLE angiogram 6. L SENIOR CENTER MANAGER angiogram 7. Mynx closure Active Non-Hospital [...] home with home health ([facility] PT&OT) Pager: [phone] YASIR TELLO OT 08/12/2017 Occupational Therapy Rehabilitation [...] 2.5x80 5. Completion RLE angiogram 6. L SENIOR CENTER MANAGER angiogram 7. Mynx closure Past Medical [...] with 24/7 assistance and maximal services) Pager: [phone] NICHOLAS MORA, JESSIE 08/12/2017 Physical Therapy Rehabilitation [...] sit/sit to supine -- Bed Mobility Goal, Tensas Level independent -- Bed Mobility Goal, Outcome Achieved -- goal ongoing Goal: Gait Training Goal Stand Alone Therapy Goal Outcome: Ongoing (Interventions Implemented as Appropriate) 08/11/17 1310 08/12/17 1510 Gait Training Goal Gait Training Goal, Date Established 08/11/17 -- Gait Training Goal, Time to Achieve 5 - 7 days -- Gait Training Goal, Tensas Level conditional independence -- Gait Training Goal, [...] days -- Transfer Training Goal, Activity Type mhd-on-tjudq/pqvqh-ov-qgr -- Transfer Train Goal, Tensas Level conditional independence -- Transfer Training Goal, [...] Smith MD - 08/11/2017 2:52 PM EST [facility] Operative Note Patient Name: Gregory Hoang : [id number] MR#: [id number] Case Date: 08/11/2017 Surgeon: Surgeon(s) and Role: [...] 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 Completion RLE angiogram 6. L SENIOR CENTER MANAGER angiogram 7. Mynx closure He is [...] Anticipated Discharge Disposition: inpatient rehabilitation facility Pager: [phone] LAWRENCE GONZALEZ, PT 08/11/2017 Physical Therapy Rehabilitation [...] to sit/sit to supine Bed Mobility Goal, Tensas Level independent Goal: Gait Training Goal Stand Alone Therapy Goal Outcome: Ongoing (Interventions Implemented as Appropriate) 08/11/17 1310 Gait Training Goal Gait Training Goal, Date Established 08/11/17 Gait Training Goal, Time to Achieve 5 - 7 days Gait Training Goal, Tensas Level conditional independence Gait Training Goal, Assist [...] 7 days Transfer Training Goal, Activity Type lih-yw-fekei/pwszw-mr-alk Transfer Train Goal, Tensas Level conditional independence Plan of Care - [...] call cabello within reach, Hourly rounding by RN/HEEL PADDER. Bed alarm / Chair alarm. ? Patient-specific [...] 04/05/2013 Hospitalizations Within the Past 30 Days: [facility] 07/20/2017 Anticipated Length Of Stay (If known): Expected Length of Hospitalization: 5-7 days2-3 days Current Decision-Making Capacity: Alert and oriented x 4 Advance Care Planning: on file Kisha Hoang [facility] [phone] Current Coping/Education/Information Needs: pt and spouse state [...] Health/Prescription Coverage: Primary Insurance: MEDICARE Secondary Insurance: [employer] [place] Prescription Coverage: See above [facility]erred [facility]acy: [facility] Other: N/A Primary Care Provider: Lovely Vicente MD [phone] Patient/Caregiver Goals of Treatment: Patient plans to return home when medically ready Potential Needs for Transition of Care: Rehab/SNF: N/A Home Health: [facility]. DME: pt has a cane and walker [...] of care planning. Kaitlin Saha RN Pager: [phone] Plan of Care - Melba Jaramillo RN [...] Overview Goal: Plan of Care Review 08/08/17 8854 Coping/Psychosocial Plan Of Care Reviewed With patient [...] call cabello within reach, Hourly rounding by RN/HEEL PADDER. Bed alarm / Chair alarm. Patient-specific fall [...] at bedside and MD TEAM Carrying pager [phone] contacted (via Radio page) and notified of [...] Nobles MD [facility] [address] [place], [place] [address] (Wo rk) 05/28/2022 Appointment Cardiology Zulma Dolan MD [facility] [address] [place], [place] [address] (Wo rk) 05/28/2022 Laboratory Appointment Lab 05/28/2022 Office Visit Cardiology Zulma Dolan MD [facility] [place] [address] Liz Poole PA [facility] [place] [address] 06/10/2022 Office Visit Dermatology Laura Scherer MD [facility] DR TEJA GR[place]MAT [place], [place] [address] (Wo rk) documented as of [...] TYPE AND SCREEN Routine 08/09/2017 1:10 AM ([facility]/CGP/SHANDA) EST BASIC METABOLIC PANEL Routine 08/09/2017 1:10 [...] [facility] mg/dL [facility] Comment: [...] Organization Address City/State/ZIP [place] [address] (ABNORMAL) Differential, Automated (08/16/2017 5:08 AM EST) [facility] gist Method Time Signature Neutrophils % 73.9 % [facility] Neutr Abs (ANC) 5.37 1.70 - [facility] 6.10 [facility] x10(3)/[facility] LABORATORY Lymphocytes % 10.1 % [facility] Lymphocytes Abs 0.7 (L) 0.9 - 3.2 [facility] x10(3)/[facility] LABORATORY Monocytes % 10.1 % [facility] Monocyte Abs 0.7 0.3 - 0.9 [facility] x10(3)/[facility] LABORATORY Eosinophils % 5.1 % [facility] Eosinophils Abs 0.4 0.0 - 0.4 [facility] x10(3)/[facility] LABORATORY Basophils % 0.4 % [facility] Basophils Abs 0.0 0.0 - 0.1 [facility] x10(3)/[facility] LABORATORY Immature Gran % 0.40 % [facility] [...] Melisa Gran Abs 0.03 0.00 - 0.04 x10(3)/[facility] LABORATORY Specimen Anatomical Collection Method Collection Time Receive d Time (Source) Location / / Volume Laterality Blood specimen 08/16/2017 5:08 AM 018 5:20 (specimen) EST AM EST Resulting Agency Comment Spec In Lab Yonathan Smith MD HEMATOLOGY ORDERABLES Performing Organization Address City/State/ZIP Code Phon e Number [address] (ABNORMAL) Hemogram (08/16/2017 5:08 AM EST) Analysis Performed At Patho logist Time Signature WBC 7.3 4.0 - 9.5 [facility] x[facility](3[facility] LABORATORY RBC 3.36 (L) 4.58 - [facility] x10(6[facility] LABORATORY Hemoglobin 9.7 (L) 13.7 - [facility] 16.5 gm/dL [facility] Hematocrit 30.3 (L) 40.5 - [facility] 48.5 % [facility] MCV 90.2 82.9 - [facility] 93.1 [facility] LABORATORY MCH 28.9 27.5 - [facility] 32.1 pg [facility] MCHC 32.0 32.0 - [facility] 35.7 gm/dL [facility] Platelets 282 145 - 357 [facility] x10(3)/[facility] LABORATORY RDWSD 53.9 (H) 36.0 - [facility] RYAN 45.0 [facility] LABORATORY RDWCV 16.5 (H) 11.4 - [facility] RYAN 13.8 % [facility] MPV 9.0 7.6 - 12.9 [facility] [facility] LABORATORY nRBC % Auto 0.0 % [facility] LABORATORY nRBC Abs Auto 0.000 0.000 - [facility] 0.000 [facility] x10(3[facility] LABORATORY Specimen Anatomical Collection Method Collection Time Receive d Time (Source) Location / / Volume Laterality Blood specimen 08/16/2017 5:08 AM 018 5:20 (specimen) EST AM EST Resulting Agency Comment Spec In Lab Yonathan Smith MD HEMATOLOGY ORDERABLES Performing Organization Address City/State/ZIP Code Phon e Number [facility] [place] [address] (ABNORMAL) Basic Metabolic Panel (non-fasting) (08/16/2017 5:08 AM EST) P athologist Signature Glucose Lvl 141 65 - 199 [facility] mg/dL [facility] LABORATORY Comment: Diabetes: >=200 mg/dL plus symp toms BUN 29 (H) 10 - 20 mg/dL [facility] LABORATORY Creatinine 1.25 0.80 - 1.50 mg/dL [facility] [...] LABORATORY Calcium 8.7 8.5 - 10.5 mg/dL [facility] LABORATORY Estimated GFR 57 (L) >=60 [facility] LABORATORY Comment: The reported eGFR should be multiplied b y 1.2 for patients. The MDRD is not an appropriate measure o f renal function for patients with body mass extremes or in patients with acute kidney failure. http://Mindflash.Vidmind/DHnkdep http://Mindflash.Vidmind/DHMCnkf Specimen Anatomical Collection Method Collection Time Receive d Time (Source) Location / / Volume Laterality Blood specimen 08/16/2017 5:08 AM 018 5:20 (specimen) EST AM EST Resulting Agency Comment Spec In Lab Yonathan Smith MD CHEMISTRY ORDERABLES Performing Organization Address City/State/ZIP Code Phon e Number [address] (ABNORMAL) Prothrombin Time (08/16/2017 [...] Organization Address City/State/ZIP Code Phon e Number [address] POCT Glucose (08/16/2017 4:09 AM EST) athologist Signature POC Glucose 147 65 - 199 [facility]dL [facility] LABORATORY [...] Organization Address City/State/ZIP Code Phon e Number [address] POCT Glucose (08/15/2017 11:56 PM EST) athologist Signature POC Glucose 176 65 - 199 [facility] LABORATORY [...] Organization Address City/State/[place] [address] POCT Glucose (08/15/2017 8:05 PM EST) athologist Signature POC Glucose 136 65 - 199 [facility] mg/dL [place] [...] City/[facility]/[place] [address] (ABNORMAL) POCT Glucose (08/15/2017 [...] Organization Address City/State/[place] [address] POCT Glucose (08/15/2017 12:04 PM EST) athologist Signature POC Glucose 135 65 - 199 [facility] mg/dL [place] [...] Organization Address City/State/ZIP Code Phon e Number [address] POCT Glucose (08/15/2017 7:36 AM EST) P athologist Signature POC Glucose 124 65 - 199 [facility] mg/dL [facility] LABORATORY Comment: [...] Organization Address City/State/ZIP Code Phon e Number [address] (ABNORMAL) Differential, Automated (08/15/2017 6:22 AM EST) Patholo gist Method Time Signature Neutrophils % 76.1 % [facility] LABORATORY Neutr Abs (ANC) 6.62 (H) 1.70 - [facility] 6.10 [facility] x10(3)/[facility] LABORATORY Lymphocytes % 9.3 % [facility] LABORATORY Lymphocytes Abs 0.8 (L) 0.9 - 3.2 [facility] x10(3)/[facility] LABORATORY Monocytes % 9.4 % [facility] LABORATORY Monocyte Abs 0.8 0.3 - 0.9 [facility] x10(3)/[facility] LABORATORY Eosinophils % 4.0 % [facility] LABORATORY Eosinophils Abs 0.4 0.0 - 0.4 [facility] x10(3)/[facility] LABORATORY Basophils % 0.6 % [facility] LABORATORY Basophils Abs 0.0 0.0 - 0.1 [facility] x10(3)/[facility] LABORATORY Immature Gran % 0.60 % [facility] [...] Organization Address City/State/Z[place] [address] (ABNORMAL) Hemogram (08/15/2017 6:22 AM EST) Analysis Performed At Patho logist Time Signature WBC 8.7 4.0 - 9.5 [facility] x10(3)/[facility] LABORATORY RBC 3.21 (L) 4.58 - [facility].54 [facility] x10(6[facility] LABORATORY Hemoglobin 9.1 (L) 13.7 - [facility] 16.[facility]/dL [facility] LABORATORY Hematocrit 29.0 (L) 40.5 - [facility] 48.5 % [facility] LABORATORY MCV 90.3 82.9 - [facility] 93.1 [facility] LABORATORY MCH 28.3 27.5 - [facility] 32.1 pg [facility] LABORATORY MCHC 31.4 (L) 32.0 - [facility] 35.7 gm/dL [facility] LABORATORY Platelets 254 145 - 357 [facility] x10(3)/[facility] LABORATORY RDWSD 53.9 (H) 36.0 - [facility] 45.0 [facility] LABORATORY RDWCV 16.3 (H) 11.4 - [facility] 13.8 % [facility] LABORATORY MPV 8.8 7.6 - 12.9 [facility] LABORATORY nRBC % Auto 0.0 % [facility] LABORATORY nRBC Abs Auto 0.000 0.000 - [facility] 0.000 [facility] x10(3)/[facility] LABORATORY Specimen Anatomical Collection Method Collection Time Receive d Time (Source) Location / / Volume Laterality Blood specimen 08/15/2017 6:22 AM 018 6:33 (specimen) EST AM EST Resulting Agency Comment Spec In Lab Yonathan Smith MD HEMATOLOGY ORDERABLES Performing Organization Address City/State/Z[place] [address] (ABNORMAL) Basic Metabolic Panel (non-fasting) (08/15/2017 6:22 AM EST) athologist Signature Glucose Lvl 118 65 - 199 [facility] mg/dL [facility] LABORATORY Comment: [...] [facility] LAB[facility]ORY Estimated GFR >60 >=60 [facility] LABORATORY Comment: The reported eGFR should be multiplied b y 1.2 for patients. The MDRD is not an appropriate measure o f renal function for patients with body mass extremes or in patients with acute kidney failure. http://[employer]/DHnkdep http://[employer]/DHMCnkf Specimen Anatomical Collection Method Collection Time Receive d Time (Source) Location / / Volume Laterality Blood specimen 08/15/2017 6:22 AM 018 6:33 (specimen) EST AM EST Resulting Agency Comment Spec In Lab Yonathan Smith MD CHEMISTRY ORDERABLES Performing Organization Address City/[facility]/[place] [address] (ABNORMAL) Prothrombin Time (08/15/2017 [...] Smith MD HEMATOLOGY ORDERABLES Performing Organization Address City/[facility]/[place] [address] POCT Glucose (08/15/2017 4:33 AM EST) P athologist Signature POC Glucose 164 65 - 199 [facility] mg/dL [facility] LABORATORY Comment: [...] City/[facility]/[place] [address] POCT Glucose (08/15/2017 12:12 AM EST) athologist Signature POC Glucose 89 65 - 199 [facility] mg/dL [facility] LABORATORY [...] Organization Address City/State/[place] [address] (ABNORMAL) POCT Glucose (08/14/2017 8:07 PM EST) athologist Signature POC Glucose 204 (H) 65 - 199 [facility]dL [facility] LABORATORY [...] Organization Address City/State/[place] [address] POCT Glucose (08/14/2017 5:11 PM EST) athologist Signature POC Glucose 174 65 - 199 [facility] mg/dL [facility] LABORATORY [...] Organization Address City/State/[place] [address] POCT Glucose (08/14/2017 12:10 PM EST) athologist Signature POC Glucose 141 65 - 199 [facility]dL [facility] LABORATORY [...] Organization Address City/State/ZIP Code Phon e Number [address] POCT Glucose (08/14/2017 8:07 AM EST) athologist Signature POC Glucose 158 65 - 199 [facility] mg/dL [facility] LABORATORY [...] Organization Address City/State/ZIP Code Phon e Number [address] (ABNORMAL) Differential, Automated (08/14/2017 4:52 AM EST) [facility] gist Method Time Signature Neutrophils % 78.6 % [facility] LABORATORY Neutr Abs (ANC) 7.70 (H) 1.70 - [facility] 6.10 [facility] x10(3)/[facility] LABORATORY Lymphocytes % 7.8 % [facility] LABORATORY Lymphocytes Abs 0.8 (L) 0.9 - 3.2 [facility] x10(3)/[facility] LABORATORY Monocytes % 8.8 % [facility] LABORATORY Monocyte Abs 0.9 0.3 - 0.9 [facility] x10(3)/[facility] LABORATORY Eosinophils % 4.0 % [facility] LABORATORY Eosinophils Abs 0.4 0.0 - 0.4 [facility] x10(3)/[facility] LABORATORY Basophils % 0.5 % [facility] LABORATORY Basophils Abs 0.0 0.0 - 0.1 [facility] x10(3)/[facility] LABORATORY Immature Gran % 0.30 % [facility] [...] Melisa Gran Abs 0.03 0.00 - 0.04 x10(3)/[facility] LABORATORY Specimen Anatomical Collection Method Collection Time Receive d Time (Source) Location / / Volume Laterality Blood specimen 08/14/2017 4:52 AM 018 5:08 (specimen) EST AM EST Resulting Agency Comment Spec In Lab Yonathan Smith MD HEMATOLOGY ORDERABLES Performing Organization Address City/State/Z[place] [address] (ABNORMAL) Hemogram (08/14/2017 4:52 AM EST) Analysis Performed At Patho logist Time Signature WBC 9.8 (H) 4.0 - 9.5 [facility] x10(3)/[facility] LABORATORY RBC 3.32 (L) 4.58 - [facility] x10(6[facility] LABORATORY Hemoglobin 9.5 (L) 13.7 - [facility] 16.5 gm/dL [facility] LABORATORY Hematocrit 30.3 (L) 40.5 - [facility] R[facility] 48.5 % [facility] LABORATORY MCV 91.3 82.9 - [facility] 93.1 fL [facility] LABORATORY MCH 28.6 27.5 - [facility] 32.1 pg [facility] LABORATORY MCHC 31.4 (L) 32.0 - [facility] 35.7 gm/dL [facility] LABORATORY Platelets 263 145 - 357 [facility] x10(3)/[facility] LABORATORY RDWSD 54.8 (H) 36.0 - [facility] 45.0 [facility] LABORATORY RDWCV 16.5 (H) 11.4 - [facility] 13.8 % [facility] LABORATORY MPV 9.1 7.6 - 12.9 [facility] LABORATORY nRBC % Auto 0.0 % [facility] LABORATORY nRBC Abs Auto 0.000 0.000 - [facility] R[facility] 0.000 [facility] x10(3)/[facility] LABORATORY Specimen Anatomical Collection Method Collection Time Receive d Time (Source) Location / / Volume Laterality Blood specimen 08/14/2017 4:52 AM 018 5:08 (specimen) EST AM EST Resulting Agency Comment Spec In Lab Yonathan Smith MD HEMATOLOGY ORDERABLES Performing Organization Address City/[facility] [place] [address] (ABNORMAL) Prothrombin Time (08/14/2017 [...] Smith MD HEMATOLOGY ORDERABLES Performing Organization Address City/[facility] [place] [address] (ABNORMAL) Basic Metabolic Panel (non-fasting) (08/14/2017 4:52 AM EST) P athologist Signature Glucose Lvl 135 65 - 199 [facility] mg/dL [facility] LABORATORY Comment: Diabetes: >=200 mg/dL plus symp toms BUN 25 (H) 10 - 20 mg/dL [facility] LABORATORY Creatinine 1.36 0.80 - 1.50 mg/dL [facility] [...] or in patients with acute kidney failure. http://Mindflash.Vidmind/DHnkdep http://[employer]/DHMCnkf Specimen Anatomical Collection Method Collection Time Receive d Time (Source) Location / / Volume Laterality Blood specimen 08/14/2017 4:52 AM 018 5:08 (specimen) EST AM EST Resulting Agency Comment Spec In Lab Yonathan Smith MD CHEMISTRY ORDERABLES Performing Organization Address City/State/Z[place] [address] POCT Glucose (08/14/2017 3:56 AM EST) P athologist Signature POC Glucose 135 65 - 199 [facility] mg/dL [facility] LABORATORY Comment: [...] Organization Address City/State/[place] [address] POCT Glucose (08/13/2017 11:13 PM EST) athologist Signature POC Glucose 118 65 - 199 [facility] mg/dL [place] [...] City/[facility]/[place] [address] (ABNORMAL) POCT Glucose (08/13/2017 [...] Organization Address City/State/[place] [address] POCT Glucose (08/13/2017 4:02 PM EST) athologist Signature POC Glucose 145 65 - 199 [facility] mg/dL [place] [...] Organization Address City/State/ZIP Code Phon e Number [address] POCT Glucose (08/13/2017 11:31 AM EST) athologist Signature POC Glucose 179 65 - 199 [facility] mg/dL [facility] LABORATORY [...] City/[facility]/[place] [address] (ABNORMAL) POCT Glucose (08/13/2017 10:16 AM EST) athologist Signature POC Glucose 211 (H) 65 - 199 [facility] mg/dL [facility] LABORATORY [...] Organization Address City/State/ZIP Code Phon e Number [address] JULIAN, legs, multiple levels (08/13/2017 7:42 AM EST) Component Value Ref Test Analysis Performed At [facility] gist Range Method Time Signature VB Text Department: Vascular Surgery Lab VASCUBASE Report Patient: [id number] (GREGORY HOANG) CPT: 00495 ICD10: I99.8 Referring Physician: YONATHAN SMITH ?? Indications: s/p R 1,2,3 toe amps with red left foot, need n ew baseline Diabetes mellitus: yes ICD10 Diagnosis Code: I99.8 Findings: Right ?Pressure (mm Hg) ?? JULIAN ??Waveform ?TBI ?? Brachial Artery ?138 ? Dorsalis Pedis (Ankle) Arter y ?132 ? 0.94 ??[place]- Biphasic ? Posterior Tibial (Ankle) Art anila ??154 ? 1.10 ??[place]-Biphasic ? Fourth Toe ? 67 ? 0.48 [...] 156 65 - 199 [facility] mg/dL [place] [...] Organization Address City/State/Z[place] [address] (ABNORMAL) Differential, Automated (08/13/2017 5:33 AM EST) [facility] Method Time Signature Neutrophils % 77.8 % [facility] LABORATORY Neutr Abs (ANC) 7.83 (H) 1.70 - [facility] 6.10 [facility] x10(3)/[facility] LABORATORY Lymphocytes % 8.4 % [facility] LABORATORY Lymphocytes Abs 0.8 (L) 0.9 - 3.2 [facility] x10(3)/[facility] LABORATORY Monocytes % 8.3 % [facility] LABORATORY Monocyte Abs 0.8 0.3 - 0.9 [facility] x10(3)/[facility] LABORATORY Eosinophils % 4.6 % [facility] LABORATORY Eosinophils Abs 0.5 (H) 0.0 - 0.4 [facility] x10(3)/[facility] LABORATORY Basophils % 0.5 % [facility] LABORATORY Basophils Abs 0.0 0.0 - 0.1 [facility] x10(3)/[facility] LABORATORY Immature Gran % 0.40 % [facility] [...] 0.04 0.00 - 0.04 x10(3)/[facility] LABORATORY Specimen Anatomical Collection Method Collection Time Receive d Time (Source) Location / / Volume Laterality Blood specimen 08/13/2017 5:33 AM 01/19/2 018 6:04 (specimen) EST AM EST Resulting Agency Comment Spec In Lab Yonathan Smith MD HEMATOLOGY ORDERABLES Performing Organization Address City/State/ZIP Code Phon e Number [address] (ABNORMAL) Hemogram (08/13/2017 5:33 AM EST) Analysis Performed At Patho logist Time Signature WBC 10.1 (H) 4.0 - 9.5 [facility] x[facility](3[facility] LABORATORY RBC 3.21 (L) 4.58 - [facility] 5.54 [facility] x10(6)/[facility] LABORATORY Hemoglobin 9.2 (L) 13.7 - [facility] 16.5 gm/dL [facility] LABORATORY Hematocrit 29.6 (L) 40.5 - [facility] 48.5 % [facility] LABORATORY MCV 92.2 82.9 - [facility] 93.1 [facility] LABORATORY MCH 28.7 27.5 - [facility] 32.1 pg [facility] LABORATORY MCHC 31.1 (L) 32.0 - [facility] 35.7 gm/dL [facility] LABORATORY Platelets 263 145 - 357 [facility] x10(3)/[facility] LABORATORY RDWSD 54.8 (H) 36.0 - [facility] 45.0 [facility] LABORATORY RDWCV 16.4 (H) 11.4 - [facility] 13.8 % [facility] LABORATORY MPV 9.2 7.6 - 12.9 [facility] LABORATORY nRBC % Auto 0.0 % [facility] LABORATORY nRBC Abs Auto 0.000 0.000 - [facility] 0.000 [facility] x10(3)/[facility] LABORATORY Specimen Anatomical Collection Method Collection Time Receive d Time (Source) Location / / Volume Laterality Blood specimen 08/13/2017 5:33 AM 018 6:04 (specimen) EST AM EST Resulting Agency Comment Spec In Lab Yonathan Smith MD HEMATOLOGY ORDERABLES Performing Organization Address City/State/[place] [address] (ABNORMAL) Prothrombin Time (08/13/2017 [...] Organization Address City/State/[place] [address] (ABNORMAL) Basic Metabolic Panel (non-fasting) (08/13/2017 5:33 AM EST) athologist Signature Glucose Lvl 126 65 - 199 [facility] mg/dL [facility] LABORATORY Comment: Diabetes: >=200 mg/dL plus symp toms BUN 18 10 - 20 mg/dL [facility] LABORATORY Creatinine 1.16 0.80 - 1.50 mg/dL [facility] [...] Calcium 7.9 (L) 8.5 - 10.5 mg/dL [facility] LABORATORY Estimated GFR >60 >=60 [facility] LABORATORY Comment: The reported eGFR should be multiplied b y 1.2 for patients. The MDRD is not an appropriate measure o f renal function for patients with body mass extremes or in patients with acute kidney failure. http://[employer]/DHnkdep http://[employer]/DHMCnkf Specimen Anatomical Collection Method Collection Time Receive d Time (Source) Location / / Volume Laterality Blood specimen 08/13/2017 5:33 AM 018 6:04 (specimen) EST AM EST Resulting Agency Comment Spec In Lab Yonathan Smith MD CHEMISTRY ORDERABLES Performing Organization Address City/[facility]/ZIP Code Phon e Number [address] POCT Glucose (08/13/2017 4:29 AM EST) athologist Signature POC Glucose 111 65 - 199 [facility]/dL [facility] LABORATORY [...] Organization Address City/State/ZIP Code Phon e Number [address] POCT Glucose (08/12/2017 11:28 PM EST) athologist Signature POC Glucose 164 65 - 199 [facility] mg/dL [facility] LABORATORY [...] Organization Address City/State/ZIP Code Phon e Number [address] (ABNORMAL) POCT Glucose [...] City/[facility]/[place] [address] POCT Glucose (08/12/2017 4:24 PM EST) athologist Signature POC Glucose 161 65 - 199 [facility] mg/dL [place] [...] City/[facility]/[place] [address] POCT Glucose (08/12/2017 12:00 PM EST) athologist Signature POC Glucose 167 65 - 199 [facility] mg/dL [place] [...] Organization Address City/State/ZIP Code Phon e Number [address] POCT Glucose (08/12/2017 7:25 AM EST) P athologist Signature POC Glucose 152 65 - 199 [facility] mg/dL [facility] LABORATORY [...] City/[facility]/ZIP Code Phon e Number [address] (ABNORMAL) Differential, Automated (08/12/2017 6:29 AM EST) Patholo gist Method Time Signature Neutrophils % 78.7 % [facility] LABORATORY Neutr Abs (ANC) 7.94 (H) 1.70 - [facility] 6.10 [facility] x10(3)/[facility] LABORATORY Lymphocytes % 8.8 % [facility] LABORATORY Lymphocytes Abs 0.9 0.9 - 3.2 [facility] x10(3)/[facility] LABORATORY Monocytes % 7.8 % [facility] LABORATORY Monocyte Abs 0.8 0.3 - 0.9 [facility] x10(3)/[facility] LABORATORY Eosinophils % 3.9 % [facility]AT[facility] Eosinophils Abs 0.4 0.0 - 0.4 [facility] x10(3)/[facility] LABORATORY Basophils % 0.3 % [facility] Basophils Abs 0.0 0.0 - 0.1 [facility] x10(3)/[facility] LABORATORY Immature Gran % 0.50 % [facility] [...] Organization Address City/State/ZIP [place] [address] (ABNORMAL) Hemogram (08/12/2017 6:29 AM EST) Analysis Performed At Patho logist Time Signature WBC 10.1 (H) 4.0 - 9.5 [facility] x10(3)/[facility] LABORATORY RBC 3.02 (L) 4.58 - [facility] x10(6)/[facility] LABORATORY Hemoglobin 8.7 (L) 13.7 - [facility] 16.5 gm/dL [facility] LABORATORY Hematocrit 28.1 (L) 40.5 - [facility] 48.5 % [facility] LABORATORY MCV 93.0 82.9 - [facility] 93.1 [facility] LABORATORY MCH 28.8 27.5 - [facility] 32.1 pg [facility] LABORATORY MCHC 31.0 (L) 32.0 - [facility] 35.7 gm/dL [facility] LABORATORY Platelets 223 145 - 357 [facility] x10(3)/[facility] LABORATORY RDWSD 56.1 (H) 36.0 - [facility]0 [facility] LABORATORY RDWCV 16.4 (H) 11.4 - [facility] 13.8 % [facility] LABORATORY MPV 9.0 7.6 - 12.9 [facility] LABORATORY nRBC % Auto 0.0 % [facility] LABORATORY nRBC Abs Auto 0.000 0.000 - [facility] RYAN 0.000 [facility] x10(3)/[facility] LABORATORY Specimen Anatomical Collection Method Collection Time Receive d Time (Source) Location / / Volume Laterality Blood specimen 08/12/2017 6:29 AM 018 6:38 (specimen) EST AM EST Resulting Agency Comment Spec In Lab Yonathan Smith MD HEMATOLOGY ORDERABLES Performing Organization Address City/[facility]/[place] [address] (ABNORMAL) Prothrombin Time (08/12/2017 [...] Smith MD HEMATOLOGY ORDERABLES Performing Organization Address City/[facility]/ZIP [facility] [place] [address] (ABNORMAL) Basic Metabolic Panel (non-fasting) (08/12/2017 6:29 AM EST) athologist Signature Glucose Lvl 151 65 - 199 [facility] mg/dL [facility] LABORATORY Comment: Diabetes: >=200 mg/dL plus symp toms BUN 18 10 - 20 mg/dL [facility] LABORATORY Creatinine 1.11 0.80 - 1.50 mg/dL [facility] [...] Calcium 7.9 (L) 8.5 - 10.5 mg/dL [facility] LABORATORY Estimated GFR >60 >=60 [facility] LABORATORY Comment: The reported eGFR should be multiplied b y 1.2 for patients. The MDRD is not an appropriate measure o f renal function for patients with body mass extremes or in patients with acute kidney failure. http://[employer]/DHnkdep http://[employer]/DHMCnkf Specimen Anatomical Collection Method Collection Time Receive d Time (Source) Location / / Volume Laterality Blood specimen 08/12/2017 6:29 AM 018 6:38 (specimen) EST AM EST Resulting Agency Comment Spec In Lab Yonathan Smith MD CHEMISTRY ORDERABLES Performing Organization Address City/[facility]/ZIP Code Phon e Number [address] POCT Glucose (08/12/2017 4:08 AM EST) P athologist Signature POC Glucose 181 65 - 199 [facility] mg/dL [facility] LABORATORY Comment: [...] City/[facility]/[place] [address] (ABNORMAL) POCT Glucose (08/12/2017 12:17 AM EST) athologist Signature POC Glucose 221 (H) 65 - 199 [facility] mg/dL [facility] LABORATORY [...] Organization Address City/State/[place] [address] (ABNORMAL) POCT Glucose (08/11/2017 8:52 PM EST) athologist Signature POC Glucose 221 (H) 65 - 199 [facility] mg/dL [facility] LABORATORY [...] Organization Address City/State/[place] [address] POCT Glucose (08/11/2017 5:59 PM EST) athologist Signature POC Glucose 169 65 - 199 [facility] mg/dL [facility] LABORATORY [...] Organization Address City/State/[place] [address] (ABNORMAL) POCT Glucose (08/11/2017 4:08 PM EST) athologist Signature POC Glucose 240 (H) 65 - 199 [facility] mg/dL [...] Organization Address City/State/[place] [address] POCT Glucose (08/11/2017 12:04 PM EST) athologist Signature POC Glucose 182 65 - 199 [facility] RYAN mg/dL [facility] LABORATORY [...] Organization Address City/State/[place] [address] POCT Glucose (08/11/2017 7:31 AM EST) athologist Signature POC Glucose 156 65 - 199 [facility] mg/dL [facility] [...] Organization Address City/State/[place] [address] (ABNORMAL) Differential, Automated (08/11/2017 6:16 AM EST) Patholo gist Method Time Signature Neutrophils % 83.7 % [facility] LABORATORY Neutr Abs (ANC) 10.76 (H) 1.70 - [facility] 6.10 [facility] x10(3)/[facility] L LABORATORY Lymphocytes % 6.0 % [facility] LABORATORY Lymphocytes Abs 0.8 (L) 0.9 - 3.2 [facility] x10(3)/[facility] LABORATORY Monocytes % 7.5 % [facility] LABORATORY Monocyte Abs 1.0 (H) 0.3 - 0.9 [facility] x10(3)/[facility] LABORATORY Eosinophils % 2.0 % [facility] LABORATORY Eosinophils Abs 0.3 0.0 - 0.4 [facility] x10(3)/[facility] LABORATORY Basophils % 0.3 % [facility] LABORATORY Basophils Abs 0.0 0.0 - 0.1 [place] [id number](3)/[facility] LABORATORY Immature Gran % 0.50 % [facility] [...] Organization Address City/State/Z[place] [address] (ABNORMAL) Hemogram (08/11/2017 6:16 AM EST) Analysis [facility] Time Signature WBC 12.9 (H) 4.0 - 9.5 [facility] x10(3)/[facility] LABORATORY RBC 3.28 (L) 4.58 - [facility]54 [facility] x10(6)/[facility] LABORATORY Hemoglobin 9.5 (L) 13.7 - [facility] 16.5 gm/dL [facility] LABORATORY Hematocrit 29.8 (L) 40.5 - [facility] 48.5 % [facility] LABORATORY MCV 90.9 82.9 - [facility] 93.1 [facility] LABORATORY MCH 29.0 27.5 - [facility] 32.1 pg [facility] LABORATORY MCHC 31.9 (L) 32.0 - [facility] 35.7 gm/dL [facility] LABORATORY Platelets 236 145 - 357 [facility] x10(3)/[facility] LABORATORY RDWSD 53.5 (H) 36.0 - [facility] 45.0 [facility] LABORATORY RDWCV 16.3 (H) 11.4 - [facility] 13.8 % [facility] LABORATORY MPV 8.8 7.6 - 12.9 [facility] LABORATORY nRBC % Auto 0.0 % [facility] LABORATORY nRBC Abs Auto 0.000 0.000 - [facility] 0.000 [facility] x10(3)/[facility] LABORATORY Specimen Anatomical Collection Method Collection Time Receive d Time (Source) Location / / Volume Laterality Blood specimen 08/11/2017 6:16 AM 018 6:24 (specimen) EST AM EST Resulting Agency Comment Spec In Lab Yonathan Smith MD HEMATOLOGY ORDERABLES Performing Organization Address City/State/[place] [address] (ABNORMAL) Prothrombin Time (08/11/2017 [...] Organization Address City/State/[place] [address] Basic Metabolic Panel (non-fasting) (08/11/2017 6:16 AM EST) athologist Signature Glucose Lvl 139 65 - 199 [facility] mg/dL [facility] LABORATORY Comment: Diabetes: >=200 mg/dL plus symp toms BUN 12 10 - 20 mg/dL [facility] LABORATORY Creatinine 0.91 0.80 - 1.50 mg/dL [facility] LAB[facility] Estimated GFR >60 >=60 [facility] LABORATORY Comment: The reported eGFR should be multiplied b y 1.2 for patients. The MDRD is not an appropriate measure o f renal function for patients with body mass extremes or in patients with acute kidney failure. http://[employer]Vidmind/nkdep http://Mindflash.com/[facility] DUNCANnkf Specimen Anatomical Collection Method Collection Time Receive d Time (Source) Location / / Volume Laterality Blood specimen 08/11/2017 6:16 AM 018 6:24 (specimen) EST AM EST Resulting Agency Comment Spec In Lab Yonathan Smith MD CHEMISTRY ORDERABLES Performing Organization Address City/[facility]/ZIP Code Phon e Number [address] POCT Glucose (08/11/2017 4:07 AM EST) athologist Signature POC Glucose 162 65 - 199 [facility] mg/dL [place] [...] City/[facility]/ZIP Code Phon e Number [address] POCT Glucose (08/10/2017 11:59 PM EST) athologist Signature POC Glucose 166 65 - 199 [facility] mg/dL [facility] [...] City/[facility]/ZIP Code Phon e Number [address] POCT Glucose (08/10/2017 8:12 PM EST) athologist Signature POC Glucose 156 65 - 199 [facility] mg/dL [facility] [...] City/[facility]/[place] [address] (ABNORMAL) POCT Glucose (08/10/2017 4:42 PM EST) P athologist Signature POC Glucose 211 (H) 65 - 199 [facility] mg/dL [facility] LABORATORY [...] City/[facility]/[place] [address] (ABNORMAL) Differential, Automated (08/10/2017 2:30 PM EST) Patholo gist Method Time Signature Neutrophils % 87.6 % [facility] LABORATORY Neutr Abs (ANC) 9.90 (H) 1.70 - [facility] 6.10 [facility] x10(3)/[facility] L LABORATORY Lymphocytes % 4.3 % [facility] LABORATORY Lymphocytes Abs 0.5 (L) 0.9 - 3.2 [facility] x10(3)/[facility] LABORATORY Monocytes % 6.0 % [facility] LABORATORY Monocyte Abs 0.7 0.3 - 0.9 [facility] x10(3)/[facility] LABORATORY Eosinophils % 1.1 % [facility] LABORATORY Eosinophils Abs 0.1 0.0 - 0.4 [facility] x10(3)/[facility] LABORATORY Basophils % 0.4 % [facility] LABORATORY Basophils Abs 0.0 0.0 - 0.1 [facility] x10(3)/[facility] LABORATORY Immature Gran % 0.60 % [facility] [...] Organization Address City/State/[place] [address] (ABNORMAL) Hemogram (08/10/2017 2:30 PM EST) Analysis Performed At Patho logist Time Signature WBC 11.3 (H) 4.0 - 9.5 [facility] x10(3)/[facility] LABORATORY RBC 3.13 (L) 4.58 - [facility] 5.54 [facility] x10(6)/[facility] LABORATORY Hemoglobin 8.9 (L) 13.7 - [facility] 16.5 gm/dL [facility] LABORATORY Hematocrit 28.4 (L) 40.5 - [facility] 48.5 % [facility] LABORATORY MCV 90.7 82.9 - [facility] 93.1 [facility] LABORATORY MCH 28.4 27.5 - [facility] 32.1 pg [facility] LABORATORY MCHC 31.3 (L) 32.0 - [facility] 35.7 gm/dL [facility] LABORATORY Platelets 213 145 - 357 [facility] x10(3)/[facility] RDWSD 53.7 (H) 36.0 - [facility] 45.0 [facility] RDWCV 16.4 (H) 11.4 - [facility] 13.8 % [facility] LABORATORY MPV 8.9 7.6 - 12.9 [facility] LABORATORY nRBC % Auto 0.0 % [facility] LABORATORY nRBC Abs Auto 0.000 0.000 - [facility] 0.000 [facility] x10(3)/[facility] LABORATORY Specimen Anatomical Collection Method Collection Time Receive d Time (Source) Location / / Volume Laterality Blood specimen 08/10/2017 2:30 PM 018 2:48 (specimen) EST PM EST Resulting Agency Comment Spec In Lab Yonathan Smith MD HEMATOLOGY ORDERABLES Performing Organization Address City/State/[place] [address] (ABNORMAL) POCT Glucose (08/10/2017 1:50 PM EST) athologist Signature POC Glucose 243 (H) 65 - 199 [facility] mg/dL [facility] LABORATORY [...] Organization Address City/State/[place] [address] POCT Glucose (08/10/2017 11:21 AM EST) athologist Signature POC Glucose 156 65 - 199 [facility] mg/dL [facility] LABORATORY [...] Organization Address City/State/[place] [address] (ABNORMAL) Differential, Automated (08/10/2017 10:28 AM EST) Patholo gist Method Time Signature Neutrophils % 85.3 % [facility] LABORATORY Neutr Abs (ANC) 9.43 (H) 1.70 - [facility] 6.10 [facility] x10(3)/[facility] L LABORATORY Lymphocytes % 5.5 % [facility] LABORATORY Lymphocytes Abs 0.6 (L) 0.9 - 3.2 [facility] x10(3)/[facility] LABORATORY Monocytes % 5.9 % [facility] LABORATORY Monocyte Abs 0.6 0.3 - 0.9 [facility] x10(3)/[facility] LABORATORY Eosinophils % 2.1 % [facility] LABORATORY Eosinophils Abs 0.2 0.0 - 0.4 [facility] x10(3)/[facility] LABORATORY Basophils % 0.4 % [facility] LABORATORY Basophils Abs 0.0 0.0 - 0.1 [facility] x10(3)/[facility] LABORATORY Immature Gran % 0.80 % [facility] LABORATORY Comment: Immature granulocytes(IG's)percentage an d absolute count will include metamyelocytes, myelocytes, and promyelo cytes. Blood smears from CBCs yielding IG's will be scanned manually for concor dance. If this scan disagrees with the automated IG or if promyelocytes are not ed, a manual differential will be performed. Emlisa Gran Abs 0.09 (H) 0.00 - 0.04 x10(3)/[facility] LABORATORY Specimen Anatomical Collection Method Collection Time Receive d Time (Source) Location / / Volume Laterality Blood specimen 08/10/2017 10:28 8 (specimen) AM EST 10:35 AM EST Resulting Agency Comment Spec In Lab Yonathan Smith MD HEMATOLOGY ORDERABLES Performing Organization Address City/State/Z[place] [address] (ABNORMAL) Hemogram (08/10/2017 10:28 AM EST) Analysis [facility] Time Signature WBC 11.0 (H) 4.0 - 9.5 [facility] x10(3)/[facility] LABORATORY RBC 3.02 (L) 4.58 - [facility] 5.54 [facility] x10(6)/[facility] LABORATORY Hemoglobin 8.8 (L) 13.7 - [facility] 16.5 gm/dL [facility] LABORATORY Hematocrit 28.1 (L) 40.5 - [facility] 48.5 % [facility] LABORATORY MCV 93.0 82.9 - [facility] 93[facility]1 [facility] LABORATORY MCH 29.1 27.5 - [facility] 32.1 pg [facility] LABORATORY MCHC 31.3 (L) 32.0 - [facility] 35.7 gm/dL [facility] LABORATORY Platelets 207 145 - 357 [facility] x10(3)/[facility] LABORATORY RDWSD 55.3 (H) 36.0 - [facility] 45.0 [facility] LABORATORY RDWCV 16.4 (H) 11.4 - [facility] 13.8 % [facility] LABORATORY MPV 9.0 7.6 - 12.9 [facility] LABORATORY nRBC % Auto 0.0 % [facility] LABORATORY nRBC Abs Auto 0.000 0.000 - [facility]000 [facility] x10(3)/[facility] LABORATORY Specimen Anatomical Collection Method Collection Time Receive d Time (Source) Location / / Volume Laterality Blood specimen 08/10/2017 10:28 8 (specimen) AM EST 10:35 AM EST Resulting Agency Comment Spec In Lab Yonathan Smith MD HEMATOLOGY ORDERABLES Performing Organization Address City/State/Z[place] [address] VS Angiogram/intervention (vascular) (08/10/2017 [...] 2.5x80 5. Completion RLE angiogram 6. L SENIOR CENTER MANAGER angiogram 7. 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 L SENIOR CENTER MANAGER access in the distal L SENIOR CENTER MANAGER. - Closure device: Mynx Technical Procedure: [...] for a 45cm 5F Destination. V18 and Mclean a nd QuickCross catheters were used to [...] bifurcation. Access appeared in the distal R SENIOR CENTER MANAGER. Closure and sheath removal was performed [...] 2.5x80 5. Completion RLE angiogram 6. L SENIOR CENTER MANAGER angiogram 7. 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 L SENIOR CENTER MANAGER access in the distal L SENIOR CENTER MANAGER. - Closure device: Mynx Technical Procedure: [...] for a 45cm 5F Destination. V18 and Mclean a nd QuickCross catheters were used to [...] bifurcation. Access appeared in the distal R SENIOR CENTER MANAGER. Closure and sheath removal was performed [...] drip Bedrest Continue antibiotics Yonathan Smith MD G IR ORDERABLES (ABNORMAL) Differential, Automated (08/10/2017 5:50 AM EST) [facility] Method Time Signature Neutrophils % 80.1 % [facility] LABORATORY Neutr Abs (ANC) 9.01 (H) 1.70 - [facility] 6.10 [facility] x10(3)/[facility] L LABORATORY Lymphocytes % 8.8 % [facility] LABORATORY Lymphocytes Abs 1.0 0.9 - 3.2 [facility] x10(3)/[facility] LABORATORY Monocytes % 8.3 % [facility] LABORATORY Monocyte Abs 0.9 0.3 - 0.9 [facility] x10(3)/[facility] LABORATORY Eosinophils % 2.0 % [facility] LABORATORY Eosinophils Abs 0.2 0.0 - 0.4 [facility] x10(3)/[facility] LABORATORY Basophils % 0.4 % [facility] LABORATORY Basophils Abs 0.0 0.0 - 0.1 [facility] x10(3)/[facility] LABORATORY Immature Gran % 0.40 % [facility] [...] Organization Address City/State/Z[place] [address] (ABNORMAL) Hemogram (08/10/2017 5:50 AM EST) Analysis Performed At Patho logist Time Signature WBC 11.3 (H) 4.0 - 9.5 [facility] x10(3)/[facility] LABORATORY RBC 3.15 (L) 4.58 - [facility] x10(6)/[facility] LABORATORY Hemoglobin 8.9 (L) 13.7 - [facility] 16.5 gm/dL [facility] LABORATORY Hematocrit 29.0 (L) 40.5 - [facility] 48.5 % [facility] LABORATORY MCV 92.1 82.9 - [facility] 93.1 fL [facility] LABORATORY MCH 28.3 27.5 - [facility] 32.1 pg [facility] LABORATORY MCHC 30.7 (L) 32.0 - [facility] 35.7 gm/dL [facility] LABORATORY Platelets 231 145 - 357 [facility] x10(3)/[facility] LABORATORY RDWSD 53.9 (H) 36.0 - [facility] 45.0 [facility] LABORATORY RDWCV 16.2 (H) 11.4 - [facility] 13.8 % [facility] LABORATORY MPV 8.7 7.6 - 12.9 [facility] LABORATORY nRBC % Auto 0.0 % [facility] LABORATORY nRBC Abs Auto 0.000 0.000 - [facility] 0.000 [facility] x10(3)/[facility] LABORATORY Specimen Anatomical Collection Method Collection Time Receive d Time (Source) Location / / Volume Laterality Blood specimen 08/10/2017 5:50 AM 018 5:59 (specimen) EST AM EST Resulting Agency Comment Spec In Lab Yonathan Smith MD HEMATOLOGY ORDERABLES Performing Organization Address City/State/[place] [address] (ABNORMAL) Basic Metabolic Panel (non-fasting) (08/10/2017 5:50 AM EST) athologist Signature Glucose Lvl 135 65 - 199 [facility] mg/dL [facility] LABORATORY Comment: [...] [facility] LAB[facility]ORY Estimated GFR >60 >=60 [facility] LABORATORY Comment: The reported eGFR should be multiplied b y 1.2 for patients. The MDRD is not an appropriate measure o f renal function for patients with body mass extremes or in patients with acute kidney failure. http://[employer]/DHnkdep http://[employer]/DHMCnkf Specimen Anatomical Collection Method Collection Time Receive d Time (Source) Location / / Volume Laterality Blood specimen 08/10/2017 5:50 AM 018 5:59 (specimen) EST AM EST Resulting Agency Comment Spec In Lab Yonathan Smith MD CHEMISTRY ORDERABLES Performing Organization Address City/[facility] [place] [address] (ABNORMAL) Prothrombin Time (08/10/2017 [...] Smith MD HEMATOLOGY ORDERABLES Performing Organization Address City/[facility] [place] [address] (ABNORMAL) POCT Glucose (08/10/2017 4:01 AM EST) P athologist Signature POC Glucose 206 (H) 65 - 199 [facility] mg/dL [facility] LABORATORY Comment: [...] Organization Address City/State/[place] [address] POCT Glucose (08/10/2017 2:01 AM EST) athologist Signature POC Glucose 188 65 - 199 [facility] mg/dL [place] [...] Organization Address City/State/[place] [address] (ABNORMAL) POCT Glucose (08/09/2017 11:42 PM EST) athologist Signature POC Glucose 283 (H) 65 - 199 [facility] mg/dL [facility] LABORATORY Comment: Supplemental ranges: <140 mg/dL before meals <180 mg/dL all other times of the day Specimen Anatomical Collection Method Collection Time Receive d Time (Source) Location / / Volume Laterality Blood specimen 08/09/2017 11:42 8 (specimen) PM EST 11:42 PM EST Yonathan Smtih MD POINT OF CARE TEST ORDERABLE S Performing Organization Address City/State/ZIP Code Phon e Number [address] POCT Glucose (08/09/2017 8:55 [...] City/[facility]/[place] [address] (ABNORMAL) APTT (08/09/2017 6:42 PM EST) athologist Signature PTT 90 (H) 25 - 35 sec [facility] Comment: The recommended therapeutic range for fu ll dose, unfractionated heparin at [facility] is 80 ? 114 seconds. The use [...] Smith MD HEMATOLOGY ORDERABLES Performing Organization Address City/[facility]/[place] [address] POCT Glucose (08/09/2017 4:41 PM EST) athologist Signature POC Glucose 195 65 - 199 [facility] mg[facility]dL [facility] Comment: [...] City/[facility]/ZIP Code Phon e Number [address] POCT Glucose (08/09/2017 12:29 PM EST) athologist Signature POC Glucose 140 65 - 199 [facility] mg/dL [facility] [...] City/[facility]/ZIP Code Phon e Number [address] POCT Glucose (08/09/2017 9:59 AM EST) P athologist Signature POC Glucose 135 65 - 199 [facility] mg/dL [facility] Comment: [...] City/[facility]/[place] [address] Specimen to Pathology (08/09/2017 8:41 AM EST) Specimen Anatomical Collection Method Collection Time Receive d Time (Source) Location / / Volume Laterality AP Specimen 08/09/2017 8:41 AM 8 8:41 EST AM EST Narrative [facility] - 08/09/2017 8:41 AM EST Specimen requisition ordered. ??Separate Pathology report to follow Yonathan Smith MD PATHOLOGY/CYTOLOGY ORDERABLE S Performing Organization Address City/[facility]/[place] [address] Surgical Pathology Report (08/09/2017 8:40 AM EST) Component Value Ref Test Analysis Performed At Patholo gist Range Method Time Signature Surgical [id number] ? Location: [facility]; [facility]; A [facility] Pathology MADRID Report The signing pathologist has (i) examined [...] Henrique Flower Verified: ??08/13/2017 ?Pathologist Performed at: ??-[facility] Dept. of Pathology, [place], [place] CLINICAL INFORMATION Specimen Submitted: A - [...] MD PATHOLOGY/CYTOLOGY ORDERABLE S Performing Organization Address City/[facility]/[place] [address] Anaerobic Culture (08/09/2017 8:30 AM EST) [facility] Method Time Signature Anaerobic No anaerobic [facility] organisms [facility] LABORATORY Specimen Anatomical Collection Method Collection Time Receive d Time (Source) Location / / Volume Laterality Specimen from STRUCTURE OF RIGHT 08/09/2017 8:30 AM 9:10 abscess FOOT / Unknown EST AM EST (specimen) Comment: SWAB RIGHT GREAT TOE ABSCESS FO R AEROBIC AND ANAEROBIC CULTURES. Resulting Agency Comment Spec In Lab oYnathan Smith MD MICROBIOLOGY - GENERAL ORDER ROBSON Performing Organization Address City/[facility]/[place] [address] (ABNORMAL) Abscess/Wound Aspirate Culture (08/09/2017 8:30 AM EST) [facility] Method Time Signature Abscess/Wound Moderate mixed [facility] Aspirate bacterial MADRID Culture morphotypes [facility] normal LABORATORY cutaneous leroy (A) Gram Stain Rare White Blood Cells [facility] Few Gram Positive Cocci in pairs MADRID () [facility] Organism Gram Positive [facility] Cocci in pairs MADRID () [facility] Specimen Anatomical [...] - GENERAL ORDER ROBSON Performing Organization Address City/[facility]/ZIP Code Phon e Number [address] POCT Glucose (08/09/2017 4:28 AM EST) P athologist Signature POC Glucose 128 65 - 199 [facility] mg/dL [facility] Comment: [...] Organization Address City/State/ZIP Code Phon e Number [address] ABORH Recheck Status (08/09/2017 1:10 AM EST) [facility] Method Time Signature ABORH Type Completed [facility] LABORATORY Specimen Anatomical Collection Method Collection Time Receive d Time (Source) Location / / Volume Laterality Blood specimen 08/09/2017 1:10 AM 018 1:35 (specimen) EST AM EST Resulting Agency Comment Spec In Lab Yonathan Smith MD BLOOD BANK ORDERABLES Performing Organization Address City/[facility]/[place] [address] Antibody screen (08/09/2017 1:10 AM EST) [facility] Method Time Signature Ab Screen Negative [facility] LABORATORY Expires at 08/12/2017 [facility] 2359 on: [facility] Specimen Anatomical Collection Method Collection Time Receive d Time (Source) Location / / Volume Laterality Blood specimen 08/09/2017 1:10 AM 018 1:35 (specimen) EST AM EST Resulting Agency Comment Spec In Lab Yonathan Smith MD BLOOD BANK ORDERABLES Performing Organization Address City/State/[place] [address] ABO/Rh Typing (08/09/2017 1:10 [...] Organization Address City/State/Z[place] [address] (ABNORMAL) APTT (08/09/2017 1:10 AM EST) P athologist Signature PTT 86 (H) 25 - 35 sec [facility] Comment: The recommended therapeutic range for fu ll dose, unfractionated heparin at [facility] is 80 ? 114 seconds. The use [...] Organization Address City/State/[place] [address] (ABNORMAL) Differential, Automated (08/09/2017 1:10 AM EST) Patholo gist Method Time Signature Neutrophils % 76.2 % [facility] Neutr Abs (ANC) 8.59 (H) 1.70 - [facility] 6.10 [facility] x10(3)/[facility] LABORATORY Lymphocytes % 11.0 % [facility] Lymphocytes Abs 1.2 0.9 - 3.2 [facility] x10(3)/[facility] LABORATORY Monocytes % 8.4 % [facility] Monocyte Abs 1.0 (H) 0.3 - 0.9 [facility] x10(3)/[facility] LABORATORY Eosinophils % 3.5 % [facility] Eosinophils Abs 0.4 0.0 - 0.4 [facility] x10(3)/[facility] LABORATORY Basophils % 0.5 % [facility] Basophils Abs 0.1 0.0 - 0.1 [facility] x10(3)/[facility] LABORATORY Immature Gran % 0.40 % MAY[facility] [...] Organization Address City/State/[place] [address] (ABNORMAL) Hemogram (08/09/2017 1:10 AM EST) Analysis Performed At Patho logist Time Signature WBC 11.3 (H) 4.0 - 9.5 [facility](3[facility] LABORATORY RBC 3.47 (L) 4.58 - [facility] RYAN 5.54 [facility] x10(6)/[facility] LABORATORY Hemoglobin 10.0 (L) 13.7 - [facility] 16.5 gm/dL [facility] Hematocrit 31.9 (L) 40.5 - [facility] RYAN 48.5 % [facility] MCV 91.9 82.9 - [facility] 93.1 [facility] LABORATORY MCH 28.8 27.5 - [facility] RYAN 32.1 pg [facility] MCHC 31.3 (L) 32.0 - [facility] RYAN 35.7 gm/dL [facility] Platelets 234 145 - 357 [facility] x[facility](3[facility] LABORATORY RDWSD 54.0 (H) 36.0 - [facility] RYAN 45.0 [facility] LABORATORY RDWCV 16.2 (H) 11.4 - [facility] R[facility] 13.8 % [facility] MPV 8.7 7.6 - 12.9 [facility] LABORATORY nRBC % Auto 0.0 % [facility] nRBC Abs Auto 0.000 0.000 - [facility] 0.000 [facility] x10(3)/[facility] LABORATORY Specimen Anatomical Collection Method Collection Time Receive d Time (Source) Location / / Volume Laterality Blood specimen 08/09/2017 1:10 AM 018 1:19 (specimen) EST AM EST Resulting Agency Comment Spec In Lab Yonathan Smith MD HEMATOLOGY ORDERABLES Performing Organization Address City/State/[place] [address] (ABNORMAL) Prothrombin Time (08/09/2017 [...] Organization Address City/State/[place] [address] (ABNORMAL) Basic Metabolic Panel (non-fasting) (08/09/2017 1:10 AM EST) athologist Signature Glucose Lvl 108 65 - 199 [facility] mg/dL [facility] Comment: Diabetes: >=200 mg/dL plus symp toms BUN 34 (H) 10 - 20 mg/dL [facility] Creatinine 1.54 (H) 0.80 - 1.50 mg/dL [facility] [place] [...] mg/dL [facility] Estimated GFR 45 (L) >=60 [facility] Comment: The reported eGFR should be multiplied b y 1.2 for patients. The MDRD is not an appropriate measure o f renal function for patients with body mass extremes or in patients with acute kidney failure. http://[employer]/DHnkdep http://[employer]/DHnkf Specimen Anatomical Collection Method Collection Time Receive d Time (Source) Location / / Volume Laterality Blood specimen 08/09/2017 1:10 AM 018 1:19 (specimen) EST AM EST Resulting Agency Comment Spec In Lab Yonathan Smith MD CHEMISTRY ORDERABLES Performing Organization Address City/State/[place] [address] POCT Glucose (08/09/2017 12:05 AM EST) P athologist Signature POC Glucose 128 65 - 199 [facility] mg/dL [facility] Comment: [...] Organization Address City/State/[place] [address] (ABNORMAL) POCT Glucose (08/08/2017 7:36 PM EST) athologist Signature POC Glucose 215 (H) 65 - 199 [facility] mg/dL [facility]ORY [...] Organization Address City/State/[place] [address] (ABNORMAL) POCT Glucose (08/08/2017 6:23 PM EST) athologist Signature POC Glucose 216 (H) 65 - 199 [facility] mg/dL [facility]OR[facility]ORY [...] Organization Address City/State/[place] [address] (ABNORMAL) APTT (08/08/2017 6:00 PM EST) athologist Signature PTT 97 (H) 25 - 35 sec [facility] Comment: The recommended therapeutic range for fu ll dose, unfractionated heparin at [facility] is 80 ? 114 seconds. The use [...] Organization Address City/State/ZIP Code Phon e Number [address] POCT Glucose (08/08/2017 4:42 PM EST) athologist Signature POC Glucose 78 65 - 199 [facility] mg/dL [facility] LABORATORY [...] City/[facility]/[place] [address] (ABNORMAL) POCT Glucose (08/08/2017 4:01 PM EST) athologist Signature POC Glucose 58 (L) 65 - 199 [facility] mg/dL [facility]ORY [...] City/[facility]/[place] [address] POCT Glucose (08/08/2017 11:51 AM EST) athologist Signature POC Glucose 90 65 - 199 [facility] mg/dL [facility] [...] City/[facility]/[place] [address] (ABNORMAL) APTT (08/08/2017 10:27 AM EST) athologist Signature PTT 64 (H) 25 - 35 sec [facility] Comment: The recommended therapeutic range for fu ll dose, unfractionated heparin at [facility] is 80 ? 114 seconds. The use [...] Smith MD HEMATOLOGY ORDERABLES Performing Organization Address City/[facility]/[place] [address] POCT Glucose (08/08/2017 8:02 AM EST) athologist Signature POC Glucose 178 65 - 199 [facility] mg/dL [facility] Comment: [...] City/[facility]/[place] [address] (ABNORMAL) APTT (08/08/2017 4:51 AM EST) athologist Signature PTT >160 25 - 35 [facility] ([facility]) sec [facility] Comment: Called by: HOWARD, Read back by: Melba Jaramillo, Date/Time:08/08/17 05:43. The recommended therapeutic range for fu ll dose, unfractionated heparin at [facility] is 80 ? 114 seconds. The use [...] Organization Address City/State/Z[place] [address] (ABNORMAL) Differential, Automated (08/08/2017 4:51 AM EST) [facility] Method Time Signature Neutrophils % 77.9 % [facility] Neutr Abs (ANC) 8.17 (H) 1.70 - [facility] 6.10 [facility] x10(3)/[facility] LABORATORY Lymphocytes % 10.3 % [facility] Lymphocytes Abs 1.1 0.9 - 3.2 [facility] x10(3)/[facility] LABORATORY Monocytes % 7.0 % [facility] Monocyte Abs 0.7 0.3 - 0.9 [facility] x10(3)/[facility] LABORATORY Eosinophils % 3.6 % [facility] Eosinophils Abs 0.4 0.0 - 0.4 [facility] x10(3)/[facility] LABORATORY Basophils % 0.5 % [facility] Basophils Abs 0.0 0.0 - 0.1 [facility] x10(3)/[facility] LABORATORY Immature Gran % 0.70 % MAY[facility] [...] Organization Address City/State/Z[place] [address] (ABNORMAL) Hemogram (08/08/2017 4:51 AM EST) Analysis Performed At Patho logist Time Signature WBC 10.5 (H) 4.0 - 9.5 [facility] x10(3)/[facility] LABORATORY RBC 3.27 (L) 4.58 - [facility] 5.54 [facility] x10(6)/[facility] LABORATORY Hemoglobin 9.3 (L) 13.7 - [facility] 16.5 gm/dL [facility] Hematocrit 30.3 (L) 40.5 - [facility] 48.5 % [facility] MCV 92.7 82.9 - [facility] 93.1 [facility] LABORATORY MCH 28.4 27.5 - [facility] 32.1 pg [facility] MCHC 30.7 (L) 32.0 - [facility] 35.7 gm/dL [facility] Platelets 252 145 - 357 [facility] x10(3)/[facility] LABORATORY RDWSD 54.6 (H) 36.0 - [facility] 45.0 [facility] LABORATORY RDWCV 16.2 (H) 11.4 - [facility] 13.8 % [facility] MPV 9.1 7.6 - 12.9 [facility] LABORATORY nRBC % Auto 0.0 % [facility] nRBC Abs Auto 0.000 0.000 - [facility] 0.000 [facility] x10(3)/[facility] LABORATORY Specimen Anatomical Collection Method Collection Time Receive d Time (Source) Location / / Volume Laterality Blood specimen 08/08/2017 4:51 AM 018 5:14 (specimen) EST AM EST Resulting Agency Comment Spec In Lab Yonathan Smith MD HEMATOLOGY ORDERABLES Performing Organization Address City/[facility]/[place] [address] (ABNORMAL) Prothrombin Time (08/08/2017 [...] Organization Address City/State/[place] [address] (ABNORMAL) Basic Metabolic Panel (non-fasting) (08/08/2017 4:51 AM EST) athologist Signature Glucose Lvl 229 (H) 65 - 199 [facility] mg/dL [facility] Comment: Diabetes: >=200 mg/dL plus symp toms BUN 35 (H) 10 - 20 mg/dL [facility] Creatinine 1.57 (H) 0.80 - 1.50 mg/dL [facility] Sodium 136 135 - 145 [...] Calcium 7.9 (L) 8.5 - 10.5 mg/dL [facility] Estimated GFR 44 (L) >=60 [facility] Comment: The reported eGFR should be multiplied b y 1.2 for patients. The MDRD is not an appropriate measure o f renal function for patients with body mass extremes or in patients with acute kidney failure. http://[employer]/DHnkdep http://[employer]/DHMCnkf Specimen Anatomical Collection Method Collection Time Receive d Time (Source) Location / / Volume Laterality Blood specimen 08/08/2017 4:51 AM 018 5:14 (specimen) EST AM EST Resulting Agency Comment Spec In Lab Yonathan Smith MD CHEMISTRY ORDERABLES Performing Organization Address City/State/ZIP Code Phon e Number [address] POCT Glucose (08/08/2017 4:20 AM EST) athologist Signature POC Glucose 193 65 - 199 [facility] mg/dL [facility] [...] City/[facility]/ZIP Code Phon e Number [address] POCT Glucose (08/07/2017 11:11 PM EST) athologist Signature POC Glucose 124 65 - 199 [facility] mg/dL [facility] [...] City/[facility]/[place] [address] (ABNORMAL) APTT (08/07/2017 10:18 PM EST) P athologist Signature PTT 114 (H) 25 - 35 sec [facility] Comment: The recommended therapeutic range for fu ll dose, unfractionated heparin at [facility] is 80 ? 114 seconds. The use [...] Smith MD HEMATOLOGY ORDERABLES Performing Organization Address City/[facility] Code Phon e Number [address] POCT Glucose (08/07/2017 8:10 PM EST) P athologist Signature POC Glucose 140 65 - 199 [facility] mg/dL [facility] Comment: [...] City/[facility]/[place] [address] POCT Glucose (08/07/2017 5:27 PM EST) athologist Signature POC Glucose 187 65 - 199 [facility] mg/dL [facility]OR[facility]ORY [...] City/[facility]/ZIP Code Phon e Number [address] POCT Glucose (08/07/2017 3:29 PM EST) athologist Signature POC Glucose 86 65 - 199 [facility]/dL [facility] Comment: Supplemental ranges: <140 mg/dL before meals <180 mg/dL all other times of the day Specimen Anatomical Collection Method Collection Time Receive d Time (Source) Location / / Volume Laterality Blood specimen 08/07/2017 3:29 PM 018 3:29 (specimen) EST PM EST Yonathan Smith MD POINT OF CARE TEST ORDERABLE S Performing Organization Address City/[facility]/ZIP [facility] [place] [address] (ABNORMAL) APTT (08/07/2017 2:50 PM EST) athologist Signature PTT 60 (H) 25 - 35 sec [facility] Comment: The recommended therapeutic range for fu ll dose, unfractionated heparin at [facility] is 80 ? 114 seconds. The use [...] Smith MD HEMATOLOGY ORDERABLES Performing Organization Address City/[facility]/[place] [address] (ABNORMAL) POCT Glucose (08/07/2017 2:23 PM EST) athologist Signature POC Glucose 55 (L) 65 - 199 [facility] mg/dL [facility] [...] Organization Address City/State/ZIP Code Phon e Number [address] POCT Glucose (08/07/2017 12:08 PM EST) athologist [facility] POC Glucose 77 65 - 199 [facility] mg/dL [facility] Comment: [...] Organization Address City/State/ZIP Code Phon e Number [address] (ABNORMAL) Differential, Automated (08/07/2017 7:30 AM EST) [facility] gist Method Time Signature Neutrophils % 73.8 % [facility] Neutr Abs (ANC) 7.17 (H) 1.70 - [facility] 6.10 [facility] x10(3)/[facility] LABORATORY Lymphocytes % 12.2 % [facility] Lymphocytes Abs 1.2 0.9 - 3.2 [facility] x10(3)/[facility] LABORATORY Monocytes % 9.0 % [facility] Monocyte Abs 0.9 0.3 - 0.9 [facility] x10(3)/[facility] LABORATORY Eosinophils % 3.9 % [facility] Eosinophils Abs 0.4 0.0 - 0.4 [facility] x10(3)/[facility] LABORATORY Basophils % 0.6 % [facility] Basophils Abs 0.1 0.0 - 0.1 [facility] x10(3)/[facility] LABORATORY Immature Gran % 0.50 % [facility] [...] Organization Address City/State/Z[place] [address] (ABNORMAL) Hemogram (08/07/2017 7:30 AM EST) Analysis Performed At Patho logist Time Signature WBC 9.7 (H) 4.0 - 9.5 [facility] x10(3)/[facility] LABORATORY RBC 3.54 (L) 4.58 - [facility] 5.54 [facility] x10(6)/[facility] LABORATORY Hemoglobin 9.9 (L) 13.7 - [facility] 16.5 gm/dL [facility] Hematocrit 32.3 (L) 40.5 - [facility] 48.5 % [facility] MCV 91.2 82.9 - [facility] 93.1 fL [facility] MCH 28.0 27.5 - [facility] 32.1 pg [facility] MCHC 30.7 (L) 32.0 - [facility] 35.7 gm/dL [facility] Platelets 312 145 - 357 [facility] x10(3)/[facility] LABORATORY RDWSD 53.2 (H) 36.0 - [facility] 45.0 [facility] LABORATORY RDWCV 16.0 (H) 11.4 - [facility] 13.8 % [facility] MPV 8.9 7.6 - 12.9 [facility] LABORATORY nRBC % Auto 0.0 % [facility] nRBC Abs Auto 0.000 0.000 - [facility] 0.000 [facility] x10(3)/[facility] LABORATORY Specimen Anatomical Collection Method Collection Time Receive d Time (Source) Location / / Volume Laterality Blood specimen 08/07/2017 7:30 AM 018 7:45 (specimen) EST AM EST Resulting Agency Comment Spec In Lab Yonathan Smith MD HEMATOLOGY ORDERABLES Performing Organization Address City/State/ZIP [place] [address] (ABNORMAL) Basic Metabolic Panel (non-fasting) (08/07/2017 7:30 AM EST) athologist Signature Glucose Lvl 80 65 - 199 [facility] mg/dL [facility] Comment: Diabetes: >=200 mg/dL plus symp toms BUN 31 (H) 10 - 20 mg/dL [facility] Creatinine 1.22 0.80 - 1.50 mg/dL [facility] [...] mg/dL [facility] Estimated GFR 59 (L) >=60 [facility] Comment: The reported eGFR should be multiplied b y 1.2 for patients. The MDRD is not an appropriate measure o f renal function for patients with body mass extremes or in patients with acute kidney failure. http://[employer]/DHnkdep http://[employer]/MCnkf Specimen Anatomical Collection Method Collection Time Receive d Time (Source) Location / / Volume Laterality Blood specimen 08/07/2017 7:30 AM 018 7:45 (specimen) EST AM EST Resulting Agency Comment Spec In Lab Yonathan Smith MD CHEMISTRY ORDERABLES Performing Organization Address City/[facility]/ZIP [facility] Phon e Number [address] POCT Glucose (08/07/2017 7:27 AM EST) P athologist Signature POC Glucose 81 65 - 199 [facility] mg/dL [facility] Comment: Supplemental ranges: <140 mg/dL before meals <180 mg/dL all other times of the day Specimen Anatomical Collection Method Collection Time Receive d Time (Source) Location / / Volume Laterality Blood specimen 08/07/2017 7:27 AM 018 7:27 (specimen) EST AM EST Yonathan Smith MD POINT OF CARE TEST ORDERABLE S Performing Organization Address City/[facility]/ZIP [facility] [place] [address] APTT (08/07/2017 7:04 AM EST) athologist Signature PTT 34 25 - 35 sec [facility] Comment: The recommended therapeutic range for fu ll dose, unfractionated heparin at [facility] is 80 ? 114 seconds. The use [...] Smith MD HEMATOLOGY ORDERABLES Performing Organization Address City/[facility]/[place] [address] (ABNORMAL) Prothrombin Time (08/07/2017 7:04 AM EST) P athologist Signature PT 17.3 [...] Smith MD HEMATOLOGY ORDERABLES Performing Organization Address City/[facility]/[place] [address] POCT Glucose (08/07/2017 4:03 AM EST) athologist Signature POC Glucose 93 65 - 199 [facility] mg/dL [facility] Comment: [...] Organization Address City/State/[place] [address] POCT Glucose (08/07/2017 12:04 AM EST) athologist Signature POC Glucose 107 65 - 199 [facility] [...] Organization Address City/State/ZIP Code Phon e Number [address] POCT Glucose (08/06/2017 7:56 PM EST) athologist Signature POC Glucose 178 65 - 199 [facility]dL [facility] [...] City/[facility]/ZIP Code Phon e Number [address] TcPO2 (08/06/2017 2:32 PM EST) Component Value Ref Test Analysis Performed At [facility] gist Range Method Time Signature VB Text Department: Vascular Surgery Lab VASCUBASE Report Patient: [id number] (GREGORY HOANG) CPT: 3262133 ICD10: I99.8 Referring Physician: YONATHAN SMITH ?? [...] RN) 0808 (Given - Provider: Chiquis Mcgrath, VAMSI)2022 (Given - Provider: Mira Truong, RN) 0800 (Given - Provider: Dory Truong RN) 100 mg, Oral, 2 TIMES DAILY, First dose on Wed08/13/17 at 0245, Until Discontinued, Routine enoxaparin (LOVENOX) injection 130 mg (CANCELED) 2009 (Given - Provider: Hnerique Marks RN) 130 mg, Subcutaneous, NIGHTLY, First [...] not met)0504 (Given - Provider: Henrique Marks, VMASI)0800 (Not Given - Provider: Chiquis Mcgrath RN [...] than 240, repeat 8 units (no mo 729 ( Given - Provider: Mira Truong RN) [...] 0800 (Given - Provider: Dory Truong, RN) 400 mg, Oral, 2 TIMES DAILY, [...] (COMPLETED) 172 (Gi keke - Provider: Chiquis Mcgrath, VAMSI) 2.5 mg, Oral, ONCE, 1 dose, 08/14/17 at 1700, Routine warfarin (COUMADIN) tablet 2.5 mg (COMPLETED) 171 (Given - Provider: Chiquis Mcgrath, VAMSI) 2.5 mg, Oral, ONCE, 1 dose, 08/15/17 [...] Mira Truong RN)0751 (Given - Provider: Dory Truong, VAMSI)1042 (Given - Provider: Dory Truong, VAMSI) 2-4 mg, Oral, EVERY 3 HOURS PRN, Startin g 08/07/17 at 1658, Until 08/16/17 at 1425, Pain, 2mg for mild - moderate pain 1-6 OR 4mg for severe pain 7-10, Routine 2106 (Given - Provider: Henrique ureña RN - Comment: pt requesting 4 mg) lidocaine (XYLOCAINE) 10 mg/mL (1 %) injection 3 mg 3 mg (0.3 mL), Subcutaneous, ONCE PRN, 1 dose, Starting Wed08/06/17 at 1659, Until Wed08/16/17 at 1425, for discomfort with PIV insertion, Routine LORazepam (ATIVAN) tablet 0.5 mg 0157 (G iven - Provider: Melba Jaramillo, VAMSI) 1042 (Given - Provider: Dory Yuan ams, [...]
Routine documented in this encounter Care Teams Scientific Glass Blower Relationship Specialty Start Date End Date Lovely Vicente MD PCP - General 04/16/[address] [place] [address] [address] [facility] [address] [place] [address] documented as of this encounter
--- OUTSIDE RECORDS SUMMARY | 2022-03-11 11:28 | XMS_ITS | Encounter Summary ---
:1945 Author Organization [employer] [place] [address] Care Team Providers Name Role Phone Lovely Vicente MD Primary Care Provider Encounter Details Date Type Department Care Team Description 08/09/2017 Clinical Support [place] [facility] [place] (D-SCHED ERROR [facility] / CORRECT ION ) [place] [phone] Social History Tobacco Use Types Packs/Day [...] [facility] [address] [place], [place] [address] (Wo rk) 05/28/2022 Appointment Cardiology Zulma Dolan MD [facility] [address] [place] [address] (Wo rk) 05/28/2022 Laboratory Appointment Lab 05/28/2022 Office Visit Cardiology Zulma Dolan MD [facility] [place] [address] Liz Poole PA [facility] [place] [address] 06/10/2022 Office Visit Dermatology Laura Scherer MD [facility] [address] [place], [place] [address] (Wo rk) documented as of this encounter Procedures Procedure Name Priority Date/Time Associated Diagnosis Comme nts STUDENT SUCCESS ADVISOR 08/09/2017 12:00 AM Resul ts for this SCAN EST procedure are i n the results section. documented in this encounter Results SCAN DOC: STUDENT SUCCESS ADVISOR (08/09/2017 12:00 AM EST) Narrative 08/09/2017 12:00 AM EST This result has an attachment that is no t available. Ordered by an unspecified provider. Scanning Provider MEDIA MGR SCAN EXT ORDR/RSLT documented in this encounter Visit Diagnoses Not on filedocumented in this encounter Care Teams Instructional Support Assistant Relationship Specialty Start Date End Date Lovely Vicente MD PCP - General 04/16/[address] [place] [address] documented as of this encounter
--- OUTSIDE RECORDS SUMMARY | 2022-03-11 11:29 | XMS_ITS | Encounter Summary ---
:1945 Author Organization [facility] [address] Care Team Providers Name Role Phone Lovely Vicente MD Primary Care Provider Reason for Visit Auth/Cert Specialty Diagnoses / Procedures Referred By Contact Refer red To Contact Diagnoses Critical lower limb ischemia CELLULITIS RT FOOT Procedures EMERGENCY Referral ID Status Reason Start Date Expiration Date Visits Requ ested Visits Authorized [id number] 1 1 Encounter Details Date Type Department Care Team Description 08/09/2017 Surgery Main Operating Room Yonathan Smith AM PUTATION, Mary Hitchcock MD TRANSMETATARSAL ([facility] 12.71) [facility] [place] [address] [place] [address] [phone] Social History Tobacco Use Types Packs/Day Years [...] 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 Patient [...] Dorsalis Pedis (Ankle) Artery ?132 ? 0.94 ??Macon-Biphasic ? Posterior Tibial (Ankle) Artery ??154 ? 1.10 ??Macon-Biphasic ? Fourth Toe ? 67 ?0.48 ?? [...] the foot. Discharge Conditions/Prognosis: Good Discharge to: [facility] Rehab Discharge Medications: Your Medications New [...] For any problems or questions please call [phone] ZELDA Smith, credit risk review officer Nurse Clinician For issues on weeknights after 5pm and weekends please call [phone] and ask for the Vascular Fellow pallet stone positioner. General Instructions None Future Appointments and Orders Future Appointments Provider Department Dept Phone 08/26/2017 4:00 PM Aurelia Rivera PA Vascular Surgery at [place] [phone] 09/07/2017 3:00 PM LAB, THREE L Lab 3L [facility] [phone] 09/07/2017 4:00 PM Luz Prescott MD Endocrinology at [place] [phone] 09/09/2017 8:00 AM Barbra Soares APRN Pain Management at [place] [phone] Please bring a list of your current [...] For any problems or questions please call [phone] ZELDA Smith, credit risk review officer Nurse Clinician For issues on weeknights after 5pm and weekends please call [phone] and ask for the Vascular Fellow pallet stone positioner. documented in this encounter Medications at Time [...] Management Discharge Note Patient Destination: [facility] [address] [id number] Transportation: with (at bedside) Time of Discharge: by 12 noon Level of Care: swing Patient Aware: yes Family Notified: yes Md to call report to: Yissel Quintero MULTI OPERATION FORMING MACHINE SETTER already called RN to call report to: [phone] Shirin Wolf Office of Care Management Pager [phone] Shirin Wolf RN - 08/16/2017 10:50 AM EST [facility] has offered pt swing bed. Pt and accept bed. will transport via car. MULTI OPERATION FORMING MACHINE SETTER Yissel Quintero aware; d/c paperwork will be completed by 12 noon. [facility] requests pt arrival by 1400 today; MULTI OPERATION FORMING MACHINE SETTER, RN, and family aware. MULTI OPERATION FORMING MACHINE SETTER called [facility] and was told that they prefer pt to arrive with wound vac dressing applied but clamped. MULTI OPERATION FORMING MACHINE SETTER applied new wound vac dressing. RN has [facility] number to call report. PASSR completed; MULTI OPERATION FORMING MACHINE SETTER paged to request provider signature in highlighted space. Indigo from [facility] notified via email that home wound vac now cancelled; [facility] has picked up from room and order cancelled. Packet started and provided to health unit coordinator. Medicare important message explained to patient, patient signed. Copy provided to patient and signature page to OCM for inclusion in pt EMR. L Radha Powers Yoselin - 08/16/2017 10:34 AM EST Office of Care Management/Patient Relations Representative Patient Name: Gregory Hoang : 1945 Patient has been offered a swing bed at [facility]. The patient will be transported by private transportation. No MD to MD report necessary Please call Nursing Report to [phone], ask for combine mechanic. Info to accompany patient: Narcotic Prescriptions Copies of Medication Administration Records and IV sheets for past 10 days. Plan: Patient Relations Representative will be available to the patient and Quill Buncher And Sorter-RN and/or Chef for further assistance. Patient will be discharged to: [place] [id number] Radha Powers, Patient Relations Representative Mira Truong, VAMSI - 08/15/2017 10:05 PM EST [address] Flores to ask if he wanted to hold metoprolol dose. BP 95/58. OK to hold this dose Courtney Brito - 08/15/2017 3:26 PM EST Office of Care Management(OCM)/Patient Relations Representative(RS)/ D/C Planning re : Patient is medically ready for d/c today. RS has been in contact with [facility] to see if they could offer a bed. [facility] is still reviewing the case and need their MD to review chart prior to accepting or declining. OCM team needs to check in with [facility] tomorrow to check on status. 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 Vac in place. [...] about patient's referral to: [facility] PHONE: [phone] FAX: [phone] CM spoke with RS who said that [...] rehab. Await recommendations from PT. Covering pager #[phone]. 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 Marine Steam Fitter Helper Kaitlin Saha, RN Pager #[phone] Payam Rosales - 08/13/2017 2:37 PM EST Veneer Jointer Operator Encounter Note Patient Name: Gregory Hoang : [id number] MR#: [id number] Admit Date: 08/06/2017 1:41 PM Hospital Day 7 days Narrative: Visited to introduce and assess acceptance of Veneer Jointer Operator services. Pt was awake, alert, oriented and in chair and family was there. Assessment:Patient coping positively with stresses of illness/hospitalization at this time. Pt says that he is hoping to get better and his family was there. Pt says that he has family care and supportand taking one day at time. Intervention and Outcome: Provided emotional support and encouraging presence. 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 A letter describing our affiliations was reviewed with them and theywere educated about their right to choose where referrals are placed. Patient requests referral to [facility]. PHONE: [phone] FAX: [phone]. And Home NPWT (Negative Pressure Wound Therapy) aka wound vac device made available to pt. Serial # confirmed. Reviewed [facility] Proof of Delivery/Assignment of Benefits Statement(POD/AOB) Form w patient or authorized agent signing on behalf of patient. Copy of POD/AOB provided to pt and other copy faxed to [employer] @ fax# [phone] Expected date of discharge: 08/12/2017. 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 Heparin gtt continues to run. Pt a/ox4. [...] : 1945 AGE 72 y.o. 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 Vascular resident pallet stone positioner and will forward result to the team prior to rounds. 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 Patient [...] left blue toes with CTA showing R TIMBER SETTER pseudoaneurysm (now thrombosed) and occluded ATs bilaterally. [...] 2.5x80 5. Completion RLE angiogram 6. L TIMBER SETTER angiogram 7. 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 - L TIMBER SETTER angriogram demonstrated: High femoral bifurcation over the proximal half of the femoral head. L TIMBER SETTER access in the distal L TIMBER SETTER. - Closure device: Mynx Technical Procedure: The [...] for a 45cm 5F Destination. V18 and [place] and QuickCross catheters were used to select [...] 5F. A stationed picture of the L TIMBER SETTER was performed as the patient was noted to have a very high bifurcation. Access appeared in the distal R TIMBER SETTER. Closure and sheath removal was performed with [...] documented in this encounter Nursing Notes Eleno Gillsepie RN - 08/11/2017 2:51 PM EST 1440 report called to 5 [place] nurse Tessa RN documented in this encounter [...] with pt and pt's spouse. Discharge to [facility]. Goal: Individualization & Mutuality Outcome: Outcome [...] sit/sit to supine -- Bed Mobility Goal, Burnett Level independent -- Bed Mobility Goal, Date [...] days -- Transfer Training Goal, Activity Type cjc-wz-ejswc/xgfph-hw-rcr -- Transfer Train Goal, Burnett Level conditional independence -- Transfer Train Goal, [...] call cabello within reach, Hourly rounding by RN/BANQUET STEWARDESS. Bed alarm / Chair alarm. Patient-specific fall [...] Smith MD - 08/15/2017 6:28 PM EST [facility] Operative Note Patient Name: Gregory Hoang : [id number] MR#: [id number] Case Date: 08/09/2017 Surgeon: Surgeon(s) and Role: [...] 2.5x80 5. Completion RLE angiogram 6. L TIMBER SETTER angiogram 7. Mynx closure Precautions/Restrictions: fall, sternal [...] other (see comments) (or swing bed) Pager: [phone] BASSAM ELIAS, PT 08/14/2017 Inpatient Physical Therapy [...] to Achieve by discharge Gait Training Goal, Burnett Level conditional independence;set up required Gait Training [...] these facilities over the weekend except for [facility]. CM spoke with [facility] CM Drea Sandhu, VAMSI who said that they do not anticipate any beds over the weekend. Reviewed with patient/ that they need to be aware that patient will need to take the first bed offered at the facilities that they make referrals to. Their choices are: 1- [facility] PHONE: [phone] FAX: [phone] 2- [facility] [address] [place] [address] 3- [facility]) [address] [place] [address] I have discussed Medicare/Private Insurance [...] RS/CM on Wednesday to follow-up. Covering pager #[phone] for today. Plan of Care - Henrique [...] with additional findings of pseudoaneurysm on R TIMBER SETTER and bilateral anterior tibial artery occlusions. Was [...] an outpatient once discharged. Have patient call [phone] to set up an appointment. Follow-up: Dermatology will sign-off for now. Please do not hesitate to contact us if you have any questions orconcerns. Impression and Recommendations discussed with primary team on 08/13/2017. Karo Henderson MD Resident in Dermatology Section of Dermatology, Department of Surgery [facility] Pager [phone] Patient seen and evaluated with staff Recreation Teacher: Halima Cordero MD Section of Dermatology [facility] Level of Resident Supervision: Direct Supervision (The supervising physician is physically present with the resident and patient). Associated attestation - aHlima Cordero MD - 08/14/2017 8:39 AM EST [...] Outcome: Ongoing (Interventions Implemented as Appropriate) 08/12/17 5906 Coping/Psychosocial Plan Of Care Reviewed With patient;spouse [...] 2.5x80 5. Completion RLE angiogram 6. L TIMBER SETTER angiogram 7. Mynx closure Active Non-Hospital Problems [...] refer to associated flowsheet data for details. rGegory Hoang presents with activity limitations and/or participation [...] home with home health ([facility] PT&OT) Pager: [phone] YASIR TELLO OT 08/12/2017 Occupational Therapy Rehabilitation [...] 2.5x80 5. Completion RLE angiogram 6. L TIMBER SETTER angiogram 7. Mynx closure Past Medical History: [...] with 24/7 assistance and maximal services) Pager: [phone] NICHOLAS MORA, PT 08/12/2017 Physical Therapy Rehabilitation [...] sit/sit to supine -- Bed Mobility Goal, Burnett Level independent -- Bed Mobility Goal, Outcome Achieved -- goal ongoing Goal: Gait Training Goal Stand Alone Therapy Goal Outcome: Ongoing (Interventions Implemented as Appropriate) 08/11/17 1310 08/12/17 1510 Gait Training Goal Gait Training Goal, Date Established 08/11/17 -- Gait Training Goal, Time to Achieve 5 - 7 days -- Gait Training Goal, Burnett Level conditional independence -- Gait Training Goal, [...] days -- Transfer Training Goal, Activity Type wey-rg-ctfbc/ixzoe-fq-mbu -- Transfer Train Goal, Burnett Level conditional independence -- Transfer Training Goal, [...] Smith MD - 08/11/2017 2:52 PM EST [facility] Operative Note Patient Name: Gregory Hoang : [id number] MR#: [id number] Case Date: 08/11/2017 Surgeon: Surgeon(s) and Role: [...] 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 Completion RLE angiogram 6. L TIMBER SETTER angiogram 7. Mynx closure He is very [...] Anticipated Discharge Disposition: inpatient rehabilitation facility Pager: [phone] LAWRENCE GONZALEZ, PT 08/11/2017 Physical Therapy Rehabilitation [...] to sit/sit to supine Bed Mobility Goal, Burnett Level independent Goal: Gait Training Goal Stand Alone Therapy Goal Outcome: Ongoing (Interventions Implemented as Appropriate) 08/11/17 1310 Gait Training Goal Gait Training Goal, Date Established 08/11/17 Gait Training Goal, Time to Achieve 5 - 7 days Gait Training Goal, Burnett Level conditional independence Gait Training Goal, Assist [...] 7 days Transfer Training Goal, Activity Type tsp-aw-iefrr/mfedw-no-rbe Transfer Train Goal, Burnett Level conditional independence Plan of David DelloAnnetta [...] Participants patient;physician;nursing Plan of Care - Mira Truogn RN - 08/09/2017 7:53 PM EST Problem: [...] call cabello within reach, Hourly rounding by RN/BANQUET STEWARDESS. Bed alarm / Chair alarm. ? Patient-specific [...] 04/05/2013 Hospitalizations Within the Past 30 Days: [facility] 07/20/2017 Anticipated Length Of Stay (If known): Expected Length of Hospitalization: 5-7 days2-3 days Current Decision-Making Capacity: Alert and oriented x 4 Advance Care Planning: on file Kisha Hoang [facility] [phone] Current Coping/Education/Information Needs: pt and spouse state [...] Health/Prescription Coverage: Primary Insurance: MEDICARE Secondary Insurance: [place] Prescription Coverage: See above Preferred Pharmacy: [facility] [address] Other: N/A Primary Care Provider: Lovely Vicente MD [phone] Patient/Caregiver Goals of Treatment: Patient plans to [...] of care planning. Kaitlin Saha RN Pager: [phone] Plan of Care - Melba Jaramillo RN [...] Overview Goal: Plan of Care Review 08/08/17 0344 Coping/Psychosocial Plan Of Care Reviewed With patient [...] call cabello within reach, Hourly rounding by RN/BANQUET STEWARDESS. Bed alarm / Chair alarm. Patient-specific fall prevention interventions for sensory deficits provided, if applicable: [X] Yes CPG GOAL OUTCOME EVALUATION: Goal: Fall Prevention-Safe Patient Handling Outcome: Ongoing (Interventions Implemented as Appropriate) 08/06/17 1700 08/06/17199908/07/17 1564 Positioning Body Position -- up in chair [...] at bedside and MD TEAM Carrying pager [phone] contacted (via Radio page) and notified of [...] Nobles MD [facility] [address] [place], [place] [address] (Wo rk) 05/28/2022 Appointment Cardiology Zulma Dolan MD [facility] [address] [place], [place] [address] (Wo rk) 05/28/2022 Laboratory Appointment Lab 05/28/2022 Office Visit Cardiology Zulma Dolan MD [facility] [place] [address] Liz Poole PA [facility] [place] [address] 06/10/2022 Office Visit Dermatology Laura Scherer MD [facility] DR TEJA [facility] [place], [place] [address] (Wo rk) documented [...] section. TYPE AND SCREEN Routine 08/09/2017 1:10 ([facility]P/SHANDA) AM EST BASIC METABOLIC [...] Signature POC Glucose 160 65 - 199 [facility] mg/dL [facility] [...] Organization Address City/State/[place] [address] (ABNORMAL) Differential, Automated (08/16/2017 5:08 AM EST) [facility] Method Time Signature Neutrophils % 73.9 % [facility] LABORATORY Neutr Abs (ANC) 5.37 1.70 - [facility] 6.10 [facility] x10(3)/[facility] LABORATORY Lymphocytes % 10.1 % [facility] LABORATORY Lymphocytes Abs 0.7 (L) 0.9 - 3.2 [facility] x10(3)/[facility] LABORATORY Monocytes % 10.1 % [facility] LABORATORY Monocyte Abs 0.7 0.3 - 0.9 [facility] x10(3)/[facility] LABORATORY Eosinophils % 5.1 % [facility] LABORATORY Eosinophils Abs 0.4 0.0 - 0.4 [facility] x10(3)/[facility] LABORATORY Basophils % 0.4 % [facility] LABORATORY Basophils Abs 0.0 0.0 - 0.1 [facility] x10(3)/[facility] LABORATORY Immature Gran % 0.40 [...] Melisa Gran Abs 0.03 0.00 - 0.04 x10(3)/[facility] Y [facility] LABORATORY Specimen Anatomical Collection Method Collection Time Receive d Time (Source) Location / / Volume Laterality Blood specimen 08/16/2017 5:08 AM 018 5:20 (specimen) EST AM EST Resulting Agency Comment Spec In Lab Yonathan Smith MD HEMATOLOGY ORDERABLES Performing Organization Address City/State/[place] [address] (ABNORMAL) Hemogram (08/16/2017 5:08 AM EST) Analysis Performed At Patho logist Time Signature WBC 7.3 4.0 - 9.5 [facility](3[facility] LABORATORY RBC 3.36 (L) 4.58 - [place] 5.54 [facility] x10(6)/[facility] LABORATORY Hemoglobin 9.7 (L) 13.7 - [facility] 16.[facility] gm/dL [facility] LABORATORY Hematocrit 30.3 (L) 40.5 - [facility] 48.5 % [facility] LABORATORY MCV 90.2 82.9 - [facility] 93.1 [facility] LABORATORY MCH 28.9 27.5 - [place] 32.1 pg [facility] LABORATORY MCHC 32.0 32.0 - [place] 35.7 gm/dL [facility] LABORATORY Platelets 282 145 - 357 [facility] x10(3)/[facility] LABORATORY RDWSD 53.9 (H) 36.0 - [facility] RYAN 45.0 [facility] LABORATORY RDWCV 16.5 (H) 11.4 - [facility] RYAN 13.8 % [facility] LABORATORY MPV 9.0 7.6 - 12.9 [facility] LABORATORY nRBC % Auto 0.0 % [facility] LABORATORY nRBC Abs Auto 0.000 0.000 - [facility] RYAN 0.000 [facility] x10(3)/[facility] LABORATORY Specimen Anatomical Collection Method Collection Time Receive d Time (Source) Location / / Volume Laterality Blood specimen 08/16/2017 5:08 AM 018 5:20 (specimen) EST AM EST Resulting Agency Comment Spec In Lab Yonathan Smtih MD HEMATOLOGY ORDERABLES Performing Organization Address City/State/[place] [address] (ABNORMAL) Basic Metabolic Panel (non-fasting) (08/16/2017 5:08 AM EST) P athologist Signature Glucose Lvl 141 65 - 199 [facility] mg/dL [facility] [...] estions. Chloride 99 98 - 107 mmol/L [facility] [...] or in patients with acute kidney failure. [email or web address] Specimen Anatomical Collection Method Collection Time Receive d Time (Source) Location / / Volume Laterality Blood specimen 08/16/2017 5:08 AM 018 5:20 (specimen) EST AM EST Resulting Agency Comment Spec In Lab Yonathan Smith MD CHEMISTRY ORDERABLES Performing Organization Address City/State/[place] [address] (ABNORMAL) Prothrombin Time (08/16/2017 5:08 AM EST) P athologist Signature PT 25.2 (H) 11.8 - 14.0 [facility] LABORATORY INR 2.3 (H) 0.9 - 1.1 [facility] [...] Smith MD HEMATOLOGY ORDERABLES Performing Organization Address City/[facility]/ZIP Code Phon e Number [address] POCT Glucose (08/16/2017 4:09 AM EST) athologist Signature POC Glucose 147 65 - 199 [facility] mg/dL [facility] [...] Address City/[facility]/ZIP Code Phon e Number [address] POCT Glucose (08/15/2017 11:56 PM EST) athologist Signature POC Glucose 176 65 - 199 [facility] RYAN mg/dL [facility] [...] Address City/State/ZIP Code [place] [address] POCT Glucose (08/15/2017 8:05 PM EST) athologist Signature POC Glucose 136 65 - 199 [facility] RYAN mg/dL [facility] [...] Organization Address City/State/ZIP [place] [address] (ABNORMAL) POCT Glucose (08/15/2017 4:50 PM EST) athologist Signature POC Glucose 232 (H) 65 - 199 [facility] mg/dL [facility] [...] Organization Address City/State/Z[place] [address] POCT Glucose (08/15/2017 12:04 [...] Organization Address City/State/[place] [address] POCT Glucose (08/15/2017 7:36 AM EST) P athologist Signature POC Glucose 124 65 - 199 [facility] mg/dL [facility] [...] Organization Address City/State/ZIP Code Phon e Number [place] [id number] [facility] [address] (ABNORMAL) Differential, Automated (08/15/2017 6:22 AM EST) Patholo gist Method Time Signature Neutrophils % 76.1 % [facility] LABORATORY Neutr Abs (ANC) 6.62 (H) 1.70 - [facility] 6.10 [facility] x10(3)/[facility] L LABORATORY Lymphocytes % 9.3 % [facility] LABORATORY Lymphocytes Abs 0.8 (L) 0.9 - 3.2 [facility] x10(3[facility] LAB[facility]ORY Monocytes % 9.4 % [facility] LABORATORY Monocyte Abs 0.8 0.3 - 0.9 [facility] x10(3)/[facility] LABORATORY Eosinophils % 4.0 % [facility] LABORATORY Eosinophils Abs 0.4 0.0 - 0.4 [facility] x10(3)/[facility] LABORATORY Basophils % 0.6 % [facility] LABORATORY Basophils Abs 0.0 0.0 - 0.1 [facility] x10(3)/[facility] LABORATORY Immature Gran % 0.60 % [...] Organization Address City/State/[place] [address] (ABNORMAL) Hemogram (08/15/2017 6:22 AM EST) Analysis Performed At Patho logist Time Signature WBC 8.7 4.0 - 9.5 [facility] x10(3)/[facility] LABORATORY RBC 3.21 (L) 4.58 - [facility] 5.54 [facility] x10(6)/[facility] LABORATORY Hemoglobin 9.1 (L) 13.7 - [facility]/dL [facility] LABORATORY Hematocrit 29.0 (L) 40.5 - [facility] 48.5 % [facility] LABORATORY MCV 90.3 82.9 - [facility] 93.1 [facility] LABORATORY MCH 28.3 27.5 - [facility] 32.1 pg [facility] LABORATORY MCHC 31.4 (L) 32.0 - [facility] 35.7 gm/dL [facility] LABORATORY Platelets 254 145 - 357 [facility] x10(3)/[facility] LABORATORY RDWSD 53.9 (H) 36.0 - [facility] 45.0 [facility] LABORATORY RDWCV 16.3 (H) 11.4 - [facility] 13.8 % [facility] LABORATORY MPV 8.8 7.6 - 12.9 [facility] nRBC % Auto 0.0 % [facility] LABORATORY nRBC Abs Auto 0.000 0.000 - [place] [facility] 0.000 [facility] x10(3)/[facility] LABORATORY Specimen Anatomical Collection Method Collection Time Receive d Time (Source) Location / / Volume Laterality Blood specimen 08/15/2017 6:22 AM 018 6:33 (specimen) EST AM EST Resulting Agency Comment Spec In Lab Yonathan Smith MD HEMATOLOGY ORDERABLES Performing Organization Address City/State/[place] [address] (ABNORMAL) Basic Metabolic Panel (non-fasting) (08/15/2017 6:22 AM EST) athologist Signature Glucose Lvl 118 65 - 199 [facility] mg/dL [facility] [...] or in patients with acute kidney failure. [email or web address] Specimen Anatomical Collection Method Collection Time Receive d Time (Source) Location / / Volume Laterality Blood specimen 08/15/2017 6:22 AM 018 6:33 (specimen) EST AM EST Resulting Agency Comment Spec In Lab Yonathan Smith MD CHEMISTRY ORDERABLES Performing Organization Address City/State/[place] [address] (ABNORMAL) Prothrombin Time (08/15/2017 6:22 AM EST) athologist Signature PT 21.9 (H) 11.8 - 14.0 [facility] LABORATORY INR 1.9 (H) 0.9 - 1.1 [facility] Smith MD HEMATOLOGY ORDERABLES Performing Organization Address City/[facility]/ZIP [place] [address] POCT Glucose (08/15/2017 4:33 AM EST) athologist Signature POC Glucose 164 65 - 199 [facility] mg/dL [facility] [...] Organization Address City/State/Z[place] [address] POCT Glucose (08/15/2017 12:12 AM EST) athologist Signature POC Glucose 89 65 - 199 [facility] mg/dL [facility] [...] Organization Address City/State/[place] [address] (ABNORMAL) POCT Glucose (08/14/2017 [...] Organization Address City/State/[place] [address] POCT Glucose (08/14/2017 5:11 PM EST) athologist Signature POC Glucose 174 65 - 199 [facility] mg/dL [facility] [...] Organization Address City/State/Z[place] [address] POCT Glucose (08/14/2017 12:10 PM EST) athologist Signature POC Glucose 141 65 - 199 [facility] mg/dL [facility] [...] Address City/State/ZIP Code Phon e Number [address] POCT Glucose (08/14/2017 8:07 AM EST) P athologist Signature POC Glucose 158 65 - 199 [facility]/dL [facility] [...] Organization Address City/State/Z[place] [address] (ABNORMAL) Differential, Automated (08/14/2017 4:52 AM EST) Patholo gist Method Time Signature Neutrophils % 78.6 % [facility] LABORATORY Neutr Abs (ANC) 7.70 (H) 1.70 - [facility] 6.10 [facility] x10(3)/[facility] L LABORATORY Lymphocytes % 7.8 % [facility] LABORATORY Lymphocytes Abs 0.8 (L) 0.9 - 3.2 [facility] x10(3)/[facility] LABORATORY Monocytes % 8.8 % [facility] LABORATORY Monocyte Abs 0.9 0.3 - 0.9 [facility] x10(3)/[facility] LABORATORY Eosinophils % 4.0 % [facility] LABORATORY Eosinophils Abs 0.4 0.0 - 0.4 [facility] x10(3)/[facility] LABORATORY Basophils % 0.5 % [facility] LABORATORY Basophils Abs 0.0 0.0 - 0.1 [facility] x10(3)/[facility] LABORATORY Immature Gran % 0.30 % [...] Gran Abs 0.03 0.00 - 0.04 x10(3)/[facility] MAR Y [facility] LABORATORY Specimen Anatomical Collection Method Collection Time Receive d Time (Source) Location / / Volume Laterality Blood specimen 08/14/2017 4:52 AM 018 5:08 (specimen) EST AM EST Resulting Agency Comment Spec In Lab Yonathan Smith MD HEMATOLOGY ORDERABLES Performing Organization Address City/State/[place] [address] (ABNORMAL) Hemogram (08/14/2017 4:52 AM EST) Analysis Performed At Patho logist Time Signature WBC 9.8 (H) 4.0 - 9.5 [facility] x10(3)/[facility] LABORATORY RBC 3.32 (L) 4.58 - [facility] 5.54 [facility] x10(6)/[facility] LABORATORY Hemoglobin 9.5 (L) 13.7 - [facility] 16.5 gm/dL [facility] LABORATORY Hematocrit 30.3 (L) 40.5 - [facility] 48.5 % [facility] LABORATORY MCV 91.3 82.9 - [facility] 93.1 [facility] LABORATORY MCH 28.6 27.5 - [place] 32.1 pg [facility] LABORATORY MCHC 31.4 (L) 32.0 - [facility] 35.7 gm/dL [facility] LABORATORY Platelets 263 145 - 357 [facility] x10(3)/[facility] LABORATORY RDWSD 54.8 (H) 36.0 - [place] [facility] 45.0 [facility] RDWCV 16.5 (H) 11.4 - [facility] 13.8 % [facility] LABORATORY MPV 9.1 7.6 - 12.9 [facility] LABORATORY nRBC % Auto 0.0 % [facility] LABORATORY nRBC Abs Auto 0.000 0.000 - [facility] 0.000 [facility] x10(3)/[facility] LABORATORY Specimen Anatomical Collection Method Collection Time Receive d Time (Source) Location / / Volume Laterality Blood specimen 08/14/2017 4:52 AM 018 5:08 (specimen) EST AM EST Resulting Agency Comment Spec In Lab Yonathan Smith MD HEMATOLOGY ORDERABLES Performing Organization Address City/State/[place] [address] (ABNORMAL) Prothrombin Time (08/14/2017 [...] Organization Address City/State/[place] [address] (ABNORMAL) Basic Metabolic Panel (non-fasting) (08/14/2017 4:52 AM EST) P athologist Signature Glucose Lvl 135 65 - 199 [facility] mg/dL [facility] [...] or in patients with acute kidney failure. [email or web address] Specimen Anatomical Collection Method Collection Time Receive d Time (Source) Location / / Volume Laterality Blood specimen 08/14/2017 4:52 AM 018 5:08 (specimen) EST AM EST Resulting Agency Comment Spec In Lab Yonathan Smith MD CHEMISTRY ORDERABLES Performing Organization Address City/State/[place] [address] POCT Glucose (08/14/2017 3:56 AM EST) P athologist Signature POC Glucose 135 65 - 199 [facility] mg/dL [facility] [...] Organization Address City/State/Z[place] [address] POCT Glucose (08/13/2017 11:13 PM EST) athologist Signature POC Glucose 118 65 - 199 [facility] mg/dL [facility] [...] Address City/[facility]/[place] [address] (ABNORMAL) POCT Glucose (08/13/2017 8:08 PM EST) athologist Signature POC Glucose 204 (H) 65 - 199 [facility] mg/dL [facility] [...] Organization Address City/State/Z[place] [address] POCT Glucose (08/13/2017 4:02 PM EST) athologist Signature POC Glucose 145 65 - 199 [facility] mg/dL [facility] Organization Address City/State/Z[place] [address] POCT Glucose (08/13/2017 11:31 AM EST) athologist Signature POC Glucose 179 65 - 199 [facility] mg/dL [facility] [...] Address City/[facility]/Z[place] [address] (ABNORMAL) POCT Glucose (08/13/2017 10:16 AM EST) athologist Signature POC Glucose 211 (H) 65 - 199 [facility] mg/dL [facility] [...] Address City/[facility]/[place] [address] JULIAN, legs, multiple levels (08/13/2017 7:42 AM EST) Component Value Ref Test Analysis Performed At Patholo gist Range Method Time Signature VB Text Department: Vascular Surgery Lab VASCUBASE Report Patient: [id number] (GREGORY HOANG) CPT: 55539 ICD10: I99.8 Referring Physician: YONATHAN SMITH ?? Indications: s/p R 1,2,3 toe amps with red left foot, need n ew baseline Diabetes mellitus: yes ICD10 Diagnosis Code: I99.8 Findings: Right ?Pressure (mm Hg) ?? JULIAN ??Waveform ?TBI ?? Brachial Artery ?138 ? Dorsalis Pedis (Ankle) Arter y ?132 ? 0.94 ??Macon- Biphasic ? Posterior Tibial (Ankle) Art anila ??154 ? 1.10 ??Macon-Biphasic ? Fourth Toe ? 67 ? 0.48 [...] 156 65 - 199 [facility] mg/dL [facility] [...] Address City/State/ZIP Code [place] [address] (ABNORMAL) Differential, Automated (08/13/2017 5:33 AM EST) [facility] Method Time Signature Neutrophils % 77.8 % [facility] LABORATORY Neutr Abs (ANC) 7.83 (H) 1.70 - [facility] 6.10 [facility] x10(3)/[facility] L LABORATORY Lymphocytes % 8.4 % [facility] LABORATORY Lymphocytes Abs 0.8 (L) 0.9 - 3.2 [facility] x10(3)/[facility] LABORATORY Monocytes % 8.3 % [facility] LABORATORY Monocyte Abs 0.8 0.3 - 0.9 [facility] x10(3)/[facility] LABORATORY Eosinophils % 4.6 % [facility] LABORATORY Eosinophils Abs 0.5 (H) 0.0 - 0.4 [facility] x10(3)/[facility] LABORATORY Basophils % 0.5 % [facility] LABORATORY Basophils Abs 0.0 0.0 - 0.1 [facility] x10(3)/[facility] LABORATORY Immature Gran % 0.40 % [...] Gran Abs 0.04 0.00 - 0.04 x10(3)/[facility] MAR Y [facility] LABORATORY Specimen Anatomical Collection Method Collection Time Receive d Time (Source) Location / / Volume Laterality Blood specimen 08/13/2017 5:33 AM 018 6:04 (specimen) EST AM EST Resulting Agency Comment Spec In Lab Yonathan Smith MD HEMATOLOGY ORDERABLES Performing Organization Address City/State/[place] [address] (ABNORMAL) Hemogram (08/13/2017 5:33 AM EST) Analysis Performed At Patho logist Time Signature WBC 10.1 (H) 4.0 - 9.5 [facility] LABORATORY RBC 3.21 (L) 4.58 - [place] 5.54 [facility] x10(6)/[facility] LABORATORY Hemoglobin 9.2 (L) 13.7 - [facility] 16.[facility] gm/dL [facility] LABORATORY Hematocrit 29.6 (L) 40.5 - [facility] 48.5 % [facility] LABORATORY MCV 92.2 82.9 - [facility] 93.1 [facility] LABORATORY MCH 28.7 27.5 - [place] 32.1 pg [facility] LABORATORY MCHC 31.1 (L) 32.0 - [facility] RYAN 35.7 gm/dL [facility] LABORATORY Platelets 263 145 - 357 [facility] x10(3)/[facility] LABORATORY RDWSD 54.8 (H) 36.0 - [facility] 45.0 [facility] LABORATORY RDWCV 16.4 (H) 11.4 - [facility] R[facility]AN 13.8 % [facility] LABORATORY MPV 9.2 7.6 - 12.9 [facility] LABORATORY nRBC % Auto 0.0 % [facility] LABORATORY nRBC Abs Auto 0.000 0.000 - [facility] RYAN 0.000 [facility] x10(3)/[facility] LABORATORY Specimen Anatomical Collection Method Collection Time Receive d Time (Source) Location / / Volume Laterality Blood specimen 08/13/2017 5:33 AM 018 6:04 (specimen) EST AM EST Resulting Agency Comment Spec In Lab Yonathan Smith MD HEMATOLOGY ORDERABLES Performing Organization Address City/State/ZIP Code Phon e Number [place] [id number] (ABNORMAL) Prothrombin Time (08/13/2017 5:33 AM EST) P athologist Signature PT 17.3 (H) 11.8 - 14.0 [facility] LABORATORY INR 1.4 (H) 0.9 - 1.1 [facility] Organization Address City/State/[place] [address] (ABNORMAL) Basic Metabolic Panel (non-fasting) (08/13/2017 5:33 AM EST) athologist Signature Glucose Lvl 126 65 - 199 [facility] mg/dL [facility] [...] LABORATORY Estimated GFR >60 >=60 [facility] LABORATORY Comment: The reported eGFR should be multiplied b y 1.2 for patients. The MDRD is not an appropriate measure o f renal function for patients with body mass extremes or in patients with acute kidney failure. [email or web address] Specimen Anatomical Collection Method Collection Time Receive d Time (Source) Location / / Volume Laterality Blood specimen 08/13/2017 5:33 AM 018 6:04 (specimen) EST AM EST Resulting Agency Comment Spec In Lab Yonathan Smith MD CHEMISTRY ORDERABLES Performing Organization Address City/[facility] Phon e Number [address] POCT Glucose (08/13/2017 4:29 AM EST) athologist Signature POC Glucose 111 65 - 199 [facility] mg/dL [facility] [...] Address City/[facility]/ZIP Code Phon e Number [address] POCT Glucose (08/12/2017 11:28 PM EST) athologist Signature POC Glucose 164 65 - 199 [facility] mg/dL [facility] [...] Address City/[facility]/Z[place] [address] (ABNORMAL) POCT Glucose (08/12/2017 7:40 PM EST) athologist Signature POC Glucose 209 (H) 65 - 199 [facility] mg/dL [facility] Address City/State/ZIP Code Phon e Number [address] POCT Glucose (08/12/2017 4:24 PM EST) athologist Signature POC Glucose 161 65 - 199 [facility] mg/dL [facility] Organization Address City/State/Z[place] [address] POCT Glucose (08/12/2017 12:00 [...] Organization Address City/State/Z[place] [address] POCT Glucose (08/12/2017 7:25 AM EST) P athologist Signature POC Glucose 152 65 - 199 [facility] mg/dL [facility] [...] Organization Address City/State/[place] [address] (ABNORMAL) Differential, Automated (08/12/2017 6:29 AM EST) Patholo gist Method Time Signature Neutrophils % 78.7 % [facility] LABORATORY Neutr Abs (ANC) 7.94 (H) 1.70 - [facility] 6.10 [facility] x10(3)/[facility] LABORATORY Lymphocytes % 8.8 % [facility] LABORATORY Lymphocytes Abs 0.9 0.9 - 3.2 [facility] x10(3)/[facility] LABORATORY Monocytes % 7.8 % [facility] LABORATORY Monocyte Abs 0.8 0.3 - 0.9 [facility] x10(3)/[facility] LABORATORY Eosinophils % 3.9 % [facility] LABORATORY Eosinophils Abs 0.4 0.0 - 0.4 [facility] x10(3)/[facility] LABORATORY Basophils % 0.3 % [facility] LABORATORY Basophils Abs 0.0 0.0 - 0.1 [facility] x10(3)/[facility] LABORATORY Immature Gran % 0.50 % [facility] LABORATORY [...] Organization Address City/State/[place] [address] (ABNORMAL) Hemogram (08/12/2017 6:29 AM EST) Analysis Performed At Patho logist Time Signature WBC 10.1 (H) 4.0 - 9.5 [facility] LABORATORY RBC 3.02 (L) 4.58 - [facility] 5.54 [facility] x10(6)/[facility] LABORATORY Hemoglobin 8.7 (L) 13.7 - [facility] 16.5 gm/dL [facility] LABORATORY Hematocrit 28.1 (L) 40.5 - [facility] 48.5 % [facility] LABORATORY MCV 93.0 82.9 - [facility] 93.1 [facility] LABORATORY MCH 28.8 27.5 - [facility] R[facility]AN 32.1 pg [facility] LABORATORY MCHC 31.0 (L) 32.0 - [facility] 35.7 gm/dL [facility] LABORATORY Platelets 223 145 - 357 [facility] x10(3)/[facility] LABORATORY RDWSD 56.1 (H) 36.0 - [facility] R[facility] 45.0 [facility] LABORATORY RDWCV 16.4 (H) 11.4 - [facility] R[facility] 13.8 % [facility] LABORATORY MPV 9.0 7.6 - 12.9 [facility] LABORATORY nRBC % Auto 0.0 % [facility] LABORATORY nRBC Abs Auto 0.000 0.000 - [place] [facility] 0.000 [facility] x10(3)/[facility] LABORATORY Specimen Anatomical Collection Method Collection Time Receive d Time (Source) Location / / Volume Laterality Blood specimen 08/12/2017 6:29 AM 018 6:38 (specimen) EST AM EST Resulting Agency Comment Spec In Lab Yonathan Smith MD HEMATOLOGY ORDERABLES Performing Organization Address City/[facility]/[place] [address] (ABNORMAL) Prothrombin Time (08/12/2017 [...] Organization Address City/State/[place] [address] (ABNORMAL) Basic Metabolic Panel (non-fasting) (08/12/2017 6:29 AM EST) athologist Signature Glucose Lvl 151 65 - 199 [facility] mg/dL [facility] [...] estions. Chloride 99 98 - 107 mmol/L [facility] or in patients with acute kidney failure. [email or web address] Specimen Anatomical Collection Method Collection Time Receive d Time (Source) Location / / Volume Laterality Blood specimen 08/12/2017 6:29 AM 018 6:38 (specimen) EST AM EST Resulting Agency Comment Spec In Lab Yonathan Smith MD CHEMISTRY ORDERABLES Performing Organization Address City/[facility]/ZIP Code Phon e Number [address] POCT Glucose (08/12/2017 4:08 AM EST) athologist Signature POC Glucose 181 65 - 199 [facility] mg/dL [facility] [...] Address City/[facility]/[place] [address] (ABNORMAL) POCT Glucose (08/12/2017 12:17 AM EST) athologist Signature POC Glucose 221 (H) 65 - 199 [facility] mg/dL [facility] [...] Organization Address City/State/[place] [address] (ABNORMAL) POCT Glucose (08/11/2017 [...] Address City/[facility]/[place] [address] POCT Glucose (08/11/2017 5:59 PM EST) athologist Signature POC Glucose 169 65 - 199 [facility] mg/dL [facility] [...] Organization Address City/State/[place] [address] (ABNORMAL) POCT Glucose (08/11/2017 [...] Address City/[facility]/ZIP Code Phon e Number [address] POCT Glucose (08/11/2017 12:04 PM EST) athologist Signature POC Glucose 182 65 - 199 [facility] mg/dL [facility] [...] Address City/[facility]/ZIP Code Phon e Number [address] POCT Glucose (08/11/2017 7:31 AM EST) athologist Signature POC Glucose 156 65 - 199 [facility] mg/dL [facility] [...] Address City/[facility]/ZIP Code Phon e Number [address] (ABNORMAL) Differential, Automated (08/11/2017 6:16 AM EST) [facility] Signature Neutrophils % 83.7 % [facility] LABORATORY Neutr Abs (ANC) 10.76 (H) 1.70 - [facility] 6.10 [facility] x10(3)/[facility] L LABORATORY Lymphocytes % 6.0 % [facility] LABORATORY Lymphocytes Abs 0.8 (L) 0.9 - 3.2 [facility] x10(3)/[facility] LABORATORY Monocytes % 7.5 % [facility] LABORATORY Monocyte Abs 1.0 (H) 0.3 - 0.9 [facility] x10(3)/[facility] LABORATORY Eosinophils % 2.0 % [facility] LABORATORY Eosinophils Abs 0.3 0.0 - 0.4 [facility] x10(3)/[facility] LABORATORY Basophils % 0.3 % [facility] LABORATORY Basophils Abs 0.0 0.0 - 0.1 [facility] x10(3)/[facility] LABORATORY Immature Gran % 0.50 % [facility] LABORATORY Comment: Immature granulocytes(IG's)percentage an d absolute count will include metamyelocytes, myelocytes, and promyelo cytes. Blood smears from CBCs yielding IG's will be scanned manually for concor dance. If this scan disagrees with the automated IG or if promyelocytes are not ed, a manual differential will be performed. Melisa Gran Abs 0.06 (H) 0.00 - 0.04 x10(3)/[facility] LABORATORY Specimen Anatomical Collection Method Collection Time Receive d Time (Source) Location / / Volume Laterality Blood specimen 08/11/2017 6:16 AM 018 6:24 (specimen) EST AM EST Resulting Agency Comment Spec In Lab Yonathan Smith MD HEMATOLOGY ORDERABLES Performing Organization Address City/State/[place] [address] (ABNORMAL) Hemogram (08/11/2017 6:16 AM EST) Analysis Performed At Patho logist Time Signature WBC 12.9 (H) 4.0 - 9.5 [facility] x10(3)/[facility] LABORATORY RBC 3.28 (L) 4.58 - [facility] 5.54 [facility] x10(6)/[facility] LABORATORY Hemoglobin 9.5 (L) 13.7 - [facility] 16.5 gm/dL [facility] LABORATORY Hematocrit 29.8 (L) 40.5 - [place] RYAN 48.5 % [facility] LABORATORY MCV 90.9 82.9 - [facility] RYAN 93.1 [facility] LABORATORY MCH 29.0 27.5 - [place] 32.1 pg [facility] LABORATORY MCHC 31.9 (L) 32.0 - [place] OLIVASCK 35.7 gm/dL [facility] LABORATORY Platelets 236 145 - 357 [facility] x10(3)/[facility] LABORATORY RDWSD 53.5 (H) 36.0 - [place] DAVIS 45.0 [facility] LABORATORY RDWCV 16.3 (H) 11.4 - [facility] RYAN 13.8 % [facility] LABORATORY MPV 8.8 7.6 - 12.9 [facility] LABORATORY nRBC % Auto 0.0 % [facility] LABORATORY nRBC Abs Auto 0.000 0.000 - [place] RYAN 0.000 [facility] x10(3)/[facility] LABORATORY Specimen Anatomical Collection Method Collection Time Receive d Time (Source) Location / / Volume Laterality Blood specimen 08/11/2017 6:16 AM 018 6:24 (specimen) EST AM EST Resulting Agency Comment Spec In Lab Yonathan Smith MD HEMATOLOGY ORDERABLES Performing Organization Address City/State/[place] [address] (ABNORMAL) Prothrombin Time (08/11/2017 [...] Organization Address City/State/[place] [address] Basic Metabolic Panel (non-fasting) (08/11/2017 6:16 AM EST) athologist Signature Glucose Lvl 139 65 - 199 [facility] mg/dL [facility] [...] or in patients with acute kidney failure. [email or web address] Specimen Anatomical Collection Method Collection Time Receive d Time (Source) Location / / Volume Laterality Blood specimen 08/11/2017 6:16 AM 018 6:24 (specimen) EST AM EST Resulting Agency Comment Spec In Lab Yonathan Smith MD CHEMISTRY ORDERABLES Performing Organization Address City/State/ZIP Code Phon e Number [address] POCT Glucose (08/11/2017 4:07 AM EST) athologist Signature POC Glucose 162 65 - 199 [place] ZHAORYAN mg/dL [facility] [...] Address City/[facility]/ZIP Code Phon e Number [address] POCT Glucose (08/10/2017 11:59 [...] Address City/State/ZIP Code Phon e Number [address] POCT Glucose (08/10/2017 8:12 PM EST) athologist Signature POC Glucose 156 65 - 199 [place] RYAN mg/dL [facility] [...] Organization Address City/State/[place] [address] (ABNORMAL) POCT Glucose (08/10/2017 4:42 PM EST) P athologist Signature POC Glucose 211 (H) 65 - 199 [facility] [...] Address City/State/ZIP Code Phon e Number [address] (ABNORMAL) Differential, Automated (08/10/2017 2:30 PM EST) Patholo gist Method Time Signature Neutrophils % 87.6 % [facility] LABORATORY Neutr Abs (ANC) 9.90 (H) 1.70 - [facility] 6.10 [facility] x10(3)/[facility] L LABORATORY Lymphocytes % 4.3 % [facility] LABORATORY Lymphocytes Abs 0.5 (L) 0.9 - 3.2 [facility] x10(3)/[facility] LABORATORY Monocytes % 6.0 % [facility] LABORATORY Monocyte Abs 0.7 0.3 - 0.9 [facility] x10(3)/[facility] LABORATORY Eosinophils % 1.1 % [facility] LABORATORY Eosinophils Abs 0.1 0.0 - 0.4 [facility] x10(3)/[facility] LABORATORY Basophils % 0.4 % [facility] LABORATORY Basophils Abs 0.0 0.0 - 0.1 [facility] x10(3)/[facility] LABORATORY Immature Gran % 0.60 % [...] Gran Abs 0.07 (H) 0.00 - 0.04 x10(3)/[facility] LABORATORY Specimen Anatomical Collection Method Collection Time Receive d Time (Source) Location / / Volume Laterality Blood specimen 08/10/2017 2:30 PM 018 2:48 (specimen) EST PM EST Resulting Agency Comment Spec In Lab Yonathan Smith MD HEMATOLOGY ORDERABLES Performing Organization Address City/State/[place] [address] (ABNORMAL) Hemogram (08/10/2017 2:30 PM EST) Analysis Performed At Patho logist Time Signature WBC 11.3 (H) 4.0 - 9.5 [facility] x10(3)/[facility] LABORATORY RBC 3.13 (L) 4.58 - [facility] 5.54 [facility] x10(6)/[facility] LABORATORY Hemoglobin 8.9 (L) 13.7 - [facility] 16.5 gm/dL [facility] LABORATORY Hematocrit 28.4 (L) 40.5 - [facility] 48.5 % [facility] LABORATORY MCV 90.7 82.9 - [facility] 93.1 [facility] LABORATORY MCH 28.4 27.5 - [facility] 32.1 pg [facility] LABORATORY MCHC 31.3 (L) 32.0 - [facility] 35.7 gm/dL [facility] LABORATORY Platelets 213 145 - 357 [facility] x10(3)/[facility] LABORATORY RDWSD 53.7 (H) 36.0 - [facility] 45.0 [facility] LABORATORY RDWCV 16.4 (H) 11.4 - [facility] 13.8 % [facility] LABORATORY MPV 8.9 7.6 - 12.9 [facility] LABORATORY nRBC % Auto 0.0 % [facility] LABORATORY nRBC Abs Auto 0.000 0.000 - [facility] 0.000 [facility] x10(3)/[facility] LABORATORY Specimen Anatomical Collection Method Collection Time Receive d Time (Source) Location / / Volume Laterality Blood specimen 08/10/2017 2:30 PM 018 2:48 (specimen) EST PM EST Resulting Agency Comment Spec In Lab Yonathan Smith MD HEMATOLOGY ORDERABLES Performing Organization Address City/[facility]/[place] [address] (ABNORMAL) POCT Glucose (08/10/2017 1:50 PM EST) athologist Signature POC Glucose 243 (H) 65 - 199 [facility] mg/dL [facility] [...] Address City/[facility]/ZIP [place] [address] POCT Glucose (08/10/2017 11:21 AM EST) athologist Signature POC Glucose 156 65 - 199 [facility] mg/dL [facility] [...] Address City/[facility]/ZIP Code Phon e Number [address] (ABNORMAL) Differential, Automated (08/10/2017 10:28 AM EST) [facility] Signature Neutrophils % 85.3 % [facility] LABORATORY Neutr Abs (ANC) 9.43 (H) 1.70 - [facility] 6.10 [facility] x10(3)/[facility] L LABORATORY Lymphocytes % 5.5 % [facility] LABORATORY Lymphocytes Abs 0.6 (L) 0.9 - 3.2 [facility] x10(3)/[facility] LABORATORY Monocytes % 5.9 % [facility] LABORATORY Monocyte Abs 0.6 0.3 - 0.9 [facility] x10(3)/[facility] LABORATORY Eosinophils % 2.1 % [facility] LABORATORY Eosinophils Abs 0.2 0.0 - 0.4 [facility] x10(3)/[facility] LABORATORY Basophils % 0.4 % [facility] LABORATORY Basophils Abs 0.0 0.0 - 0.1 [facility] x10(3)/[facility] LABORATORY Immature Gran % 0.80 % [facility] LABORATORY Comment: Immature granulocytes(IG's)percentage an d absolute count will include metamyelocytes, myelocytes, and promyelo cytes. Blood smears from CBCs yielding IG's will be scanned manually for concor dance. If this scan disagrees with the automated IG or if promyelocytes are not ed, a manual differential will be performed. Melisa Gran Abs 0.09 (H) 0.00 - 0.04 x10(3)/[facility] LABORATORY Specimen Anatomical Collection Method Collection Time Receive d Time (Source) Location / / Volume Laterality Blood specimen 08/10/2017 10:28 8 (specimen) AM EST 10:35 AM EST Resulting Agency Comment Spec In Lab Yonathan Smith MD HEMATOLOGY ORDERABLES Performing Organization Address City/State/[place] [address] (ABNORMAL) Hemogram (08/10/2017 10:28 AM EST) Analysis Performed At Patho logist Time Signature WBC 11.0 (H) 4.0 - 9.5 [facility] x10(3)/[facility] LABORATORY RBC 3.02 (L) 4.58 - [facility] 5.54 [facility] x10(6)/[facility] LABORATORY Hemoglobin 8.8 (L) 13.7 - [place] RYAN 16.5 gm/dL [facility] LABORATORY Hematocrit 28.1 (L) 40.5 - [place] 48.5 % [facility] LABORATORY MCV 93.0 82.9 - [place] 93.1 [facility] LABORATORY MCH 29.1 27.5 - [place] 32.1 pg [facility] LABORATORY MCHC 31.3 (L) 32.0 - [place] 35.7 gm/dL [facility] LABORATORY Platelets 207 145 - 357 [place] AMHERST x10(3)/[facility] LABORATORY RDWSD 55.3 (H) 36.0 - [place] 45.0 [facility] LABORATORY RDWCV 16.4 (H) 11.4 - [place] [facility] 13.8 % [facility] LABORATORY MPV 9.0 7.6 - 12.9 [place] LABORATORY nRBC % Auto 0.0 % [facility] LABORATORY nRBC Abs Auto 0.000 0.000 - [place] [facility] 0.000 [facility] x10(3)/[facility] LABORATORY Specimen Anatomical Collection Method Collection Time Receive d Time (Source) Location / / Volume Laterality Blood specimen 08/10/2017 10:28 8 (specimen) AM EST 10:35 AM EST Resulting Agency Comment Spec In Lab Yonathan Smith MD HEMATOLOGY ORDERABLES Performing Organization Address City/State/[place] [address] VS Angiogram/intervention (vascular) (08/10/2017 [...] 2.5x80 5. Completion RLE angiogram 6. L TIMBER SETTER angiogram 7. 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 - L TIMBER SETTER angriogram demonstrated: High fe moral bifurcation over the proximal half of the femoral head. L TIMBER SETTER access in the distal L TIMBER SETTER. - Closure device: Mynx Technical Procedure: ?The [...] for a 45cm 5F Destination. V18 and [place] a nd QuickCross catheters were used to [...] bifurcation. Access appeared in the distal R TIMBER SETTER. Closure and sheath removal was performed with [...] 2.5x80 5. Completion RLE angiogram 6. L TIMBER SETTER angiogram 7. 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 - L TIMBER SETTER angriogram demonstrated: High fe moral bifurcation over the proximal half of the femoral head. L TIMBER SETTER access in the distal L TIMBER SETTER. - Closure device: Mynx Technical Procedure: The [...] for a 45cm 5F Destination. V18 and [place] a nd QuickCross catheters were used to [...] bifurcation. Access appeared in the distal R TIMBER SETTER. Closure and sheath removal was performed with [...] Method Time Signature Neutrophils % 80.1 % [facility] LABORATORY Neutr Abs (ANC) 9.01 (H) 1.70 - [facility] 6.10 [facility] x10(3)/[facility] L LABORATORY Lymphocytes % 8.8 % [facility] LABORATORY Lymphocytes Abs 1.0 0.9 - 3.2 [facility] x10(3)/[facility] LABORATORY Monocytes % 8.3 % [facility] LABORATORY Monocyte Abs 0.9 0.3 - 0.9 [facility] x10(3)/[facility] LABORATORY Eosinophils % 2.0 % [facility] LABORATORY Eosinophils Abs 0.2 0.0 - 0.4 [facility] x10(3)/[facility] LABORATORY Basophils % 0.4 % [facility] LABORATORY Basophils Abs 0.0 0.0 - 0.1 [facility] x10(3)/[facility] LABORATORY Immature Gran % 0.40 % [...] Organization Address City/State/[place] [address] (ABNORMAL) Hemogram (08/10/2017 5:50 AM EST) Analysis Performed At Patho logist Time Signature WBC 11.3 (H) 4.0 - 9.5 [facility] x10(3)/[facility] LABORATORY RBC 3.15 (L) 4.58 - [facility] 5.54 [facility] x10(6)/[facility] LABORATORY Hemoglobin 8.9 (L) 13.7 - [facility] 16.5 gm/dL [facility] LABORATORY Hematocrit 29.0 (L) 40.5 - [facility] RYAN 48.5 % [facility] LABORATORY MCV 92.1 82.9 - [facility] 93.1 [facility] LABORATORY MCH 28.3 27.5 - [facility] RYAN 32.1 pg [facility] LABORATORY MCHC 30.7 (L) 32.0 - [facility] RYAN 35.7 gm/dL [facility] LABORATORY Platelets 231 145 - 357 [facility] x10(3)/[facility] LABORATORY RDWSD 53.9 (H) 36.0 - [place] RYAN 45.0 [facility] LABORATORY RDWCV 16.2 (H) 11.4 - [facility] 13.8 % [facility] LABORATORY MPV 8.7 7.6 - 12.9 [facility] LABORATORY nRBC % Auto 0.0 % [facility] LABORATORY nRBC Abs Auto 0.000 0.000 - [facility] 0.000 [facility] x10(3)/[facility] LABORATORY Specimen Anatomical Collection Method Collection Time Receive d Time (Source) Location / / Volume Laterality Blood specimen 08/10/2017 5:50 AM 018 5:59 (specimen) EST AM EST Resulting Agency Comment Spec In Lab Yonathan Smith MD HEMATOLOGY ORDERABLES Performing Organization Address City/State/[place] [address] (ABNORMAL) Basic Metabolic Panel (non-fasting) (08/10/2017 5:50 AM EST) P athologist Signature Glucose Lvl 135 65 - 199 [facility] mg/dL [facility] [...] or in patients with acute kidney failure. [email or web address] Specimen Anatomical Collection Method Collection Time Receive d Time (Source) Location / / Volume Laterality Blood specimen 08/10/2017 5:50 AM 018 5:59 (specimen) EST AM EST Resulting Agency Comment Spec In Lab Yonathan Smith MD CHEMISTRY ORDERABLES Performing Organization Address City/[facility] [place] [address] (ABNORMAL) Prothrombin Time (08/10/2017 5:50 AM EST) athologist Signature PT 16.8 (H) 11.8 - 14.0 [facility] LABORATORY INR 1.4 (H) 0.9 - 1.1 [facility] Smith MD HEMATOLOGY ORDERABLES Performing Organization Address City/[facility] [place] [address] (ABNORMAL) POCT Glucose (08/10/2017 4:01 AM EST) athologist Signature POC Glucose 206 (H) 65 - 199 [facility] mg/dL [facility] [...] Organization Address City/State/Z[place] [address] POCT Glucose (08/10/2017 2:01 AM EST) athologist Signature POC Glucose 188 65 - 199 [place] ZHAORYAN mg/dL [facility] [...] Address City/[facility]/[place] [address] (ABNORMAL) POCT Glucose (08/09/2017 [...] Organization Address City/State/[place] [address] POCT Glucose (08/09/2017 8:55 PM EST) athologist Signature POC Glucose 182 65 - 199 [place] ZHAORYAN mg/dL [facility] [...] Address City/[facility]/[place] [address] (ABNORMAL) APTT (08/09/2017 6:42 PM EST) athologist Signature PTT 90 (H) 25 - 35 sec [facility] LABORATORY Comment: The recommended therapeutic range for fu ll dose, unfractionated heparin at [facility] is 80 ? 114 [...] Smith MD HEMATOLOGY ORDERABLES Performing Organization Address City/[facility]/[place] [address] POCT Glucose (08/09/2017 4:41 PM EST) athologist Signature POC Glucose 195 65 - 199 [facility] mg/dL [facility] [...] Address City/[facility]/Z[place] [address] POCT Glucose (08/09/2017 12:29 PM EST) athologist Signature POC Glucose 140 65 - 199 [facility] mg/dL [facility] [...] Address City/[facility]/ZIP Code Phon e Number [address] POCT Glucose (08/09/2017 9:59 AM EST) P athologist Signature POC Glucose 135 65 - 199 [facility] mg/dL [facility] [...] Address City/[facility]/ZIP Code Phon e Number [address] Specimen to Pathology (08/09/2017 8:41 AM EST) Specimen Anatomical Collection Method Collection Time Receive d Time (Source) Location / / Volume Laterality AP Specimen 08/09/2017 8:41 AM 8 8:41 EST AM EST Narrative [facility] LABORAT ORY - 08/09/2017 8:41 AM EST Specimen requisition ordered. ??Separate Pathology report to follow Yonathan Smith MD PATHOLOGY/CYTOLOGY ORDERABLE S Performing Organization Address City/[facility]/[place] [address] Surgical Pathology Report (08/09/2017 8:40 AM EST) Component Value Ref Test Analysis Performed At Patholo gist Range Method Time Signature Surgical [id number] ? Location: [facility] [[email or web address]]; [facility] [place]; A [facility] Report The signing pathologist has (i) examined the relevant preparation(s) for the [facility] specimen(s) and (ii) rendered or confirmed the diagnosis(es) . HOSPITAL LABORATORY . 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 ?Viable proximal resection margins. Electronically signed by: ??aMnjit STRANGE, Henrique Flower Verified: ??08/13/2017 ?Pathologist Performed at: ??-[facility] Dept. of Pathology, [place], [place] CLINICAL INFORMATION Specimen Submitted: A - [...] Organization Address City/State/[place] [address] [facility] LAB[address] Drive Anaerobic Culture (08/09/2017 8:30 AM EST) [facility] eLama Method Time Signature Anaerobic No anaerobic [facility] Culture organisms [facility] LABORATORY Specimen Anatomical Collection Method Collection Time [...] Organization Address City/State/[place] [address] (ABNORMAL) Abscess/Wound Aspirate Culture (08/09/2017 8:30 AM EST) [facility] Method Time Signature Abscess/Wound Moderate mixed [facility] Aspirate bacterial [facility] Culture morphotypes [facility] normal LABORATORY cutaneous leroy (A) Gram Stain Rare White Blood Cells BARBAR[place] Few Gram Positive Cocci in pairs [facility]ST () [facility] LABORATORY Organism Gram Positive [place] Cocci in pairs [facility] () [facility] [...] - GENERAL ORDER ROBSON Performing Organization Address City/[facility]/ZIP Code Phon e Number [place] [id number] HOSPITAL LAB[address] POCT Glucose (08/09/2017 4:28 AM EST) P athologist Signature POC Glucose 128 65 - 199 [facility] mg/dL [facility] [...] Address City/State/ZIP Code Phon e Number [address] ABORH Recheck Status (08/09/2017 1:10 AM EST) [facility] Method Time Signature ABORH Type Completed formerly [facility] LABORATORY Specimen Anatomical Collection Method Collection Time Receive d Time (Source) Location / / Volume Laterality Blood specimen 08/09/2017 1:10 AM 018 1:35 (specimen) EST AM EST Resulting Agency Comment Spec In Lab Yonathan Smith MD BLOOD BANK ORDERABLES Performing Organization Address City/[facility]/Z[place] [address] Antibody screen (08/09/2017 1:10 AM EST) [facility] Method Time Signature Ab Screen Negative [facility] LABORATORY Expires at 08/12/2017 [facility] [id number] on: [facility] LABORATORY Specimen Anatomical Collection Method Collection Time Receive d Time (Source) Location / / Volume Laterality Blood specimen 08/09/2017 1:10 AM 018 1:35 (specimen) EST AM EST Resulting Agency Comment Spec In Lab Yonathan Smith MD BLOOD BANK ORDERABLES Performing Organization Address City/[facility]/Z[place] [address] ABO/Rh Typing (08/09/2017 1:10 [...] BLOOD BANK ORDERABLES Performing Organization Address City/[facility]/[place] [address] (ABNORMAL) APTT (08/09/2017 1:10 AM EST) P athologist Signature PTT 86 (H) 25 - 35 sec [facility] LABORATORY Comment: The recommended therapeutic range for fu ll dose, unfractionated heparin at [facility] is 80 ? 114 [...] Organization Address City/State/[place] [address] (ABNORMAL) Differential, Automated (08/09/2017 1:10 AM EST) [facility] gist Method Time Signature Neutrophils % 76.2 % [facility] LABORATORY Neutr Abs (ANC) 8.59 (H) 1.70 - [facility] 6.10 [facility] x10(3)/[facility] LABORATORY Lymphocytes % 11.0 % [facility] LABORATORY Lymphocytes Abs 1.2 0.9 - 3.2 [facility] x10(3)/[facility] LABORATORY Monocytes % 8.4 % [facility] LABORATORY Monocyte Abs 1.0 (H) 0.3 - 0.9 [facility] x10(3)/[facility] LABORATORY Eosinophils % 3.5 % [facility] [facility]ORY Eosinophils Abs 0.4 0.0 - 0.4 [facility] x10(3[facility] Basophils % 0.5 % [facility] Basophils Abs 0.1 0.0 - 0.1 [facility] x10(3)/[facility] LAB[facility]ATORY Immature Gran % 0.40 % [...] Organization Address City/State/[place] [address] (ABNORMAL) Hemogram (08/09/2017 1:10 AM EST) Analysis Performed At Patho logist Time Signature WBC 11.3 (H) 4.0 - 9.5 [facility] x10(3)/[facility] LABORATORY RBC 3.47 (L) 4.58 - [facility]AN 5.54 [facility] x10(6)/[facility] LABORATORY Hemoglobin 10.0 (L) 13.7 - [facility] gm/dL [facility] LABORATORY Hematocrit 31.9 (L) 40.5 - [facility] % [facility] LABORATORY MCV 91.9 82.9 - [facility] 93.1 [facility] LABORATORY MCH 28.8 27.5 - [place] 32.1 pg [facility] LABORATORY MCHC 31.3 (L) 32.0 - [facility] 35.7 gm/dL [facility] LABORATORY Platelets 234 145 - 357 [facility] x10(3)/[facility] LABORATORY RDWSD 54.0 (H) 36.0 - [facility] 45.0 [facility] LABORATORY RDWCV 16.2 (H) 11.4 - [facility] 13.8 % [facility] LABORATORY MPV 8.7 7.6 - 12.9 [facility] LABORATORY nRBC % Auto 0.0 % [facility] nRBC Abs Auto 0.000 0.000 - [facility] Skills Matter 0.000 [facility] x10(3)/[facility] LABORATORY Specimen Anatomical Collection Method Collection Time Receive d Time (Source) Location / / Volume Laterality Blood specimen 08/09/2017 1:10 AM 018 1:19 (specimen) EST AM EST Resulting Agency Comment Spec In Lab Yonathan Smith MD HEMATOLOGY ORDERABLES Performing Organization Address [facility] [place] [address] (ABNORMAL) Prothrombin Time (08/09/2017 [...] HEMATOLOGY ORDERABLES Performing Organization Address [facility] [place] [address] (ABNORMAL) Basic Metabolic Panel (non-fasting) (08/09/2017 1:10 AM EST) athologist Signature Glucose Lvl 108 65 - 199 [facility] mg/dL [facility] [...] or in patients with acute kidney failure. [email or web address] [email or web address] Specimen Anatomical Collection Method Collection Time Receive d Time (Source) Location / / Volume Laterality Blood specimen 08/09/2017 1:10 AM 018 1:19 (specimen) EST AM EST Resulting Agency Comment Spec In Lab Yonathan Smith MD CHEMISTRY ORDERABLES Performing Organization Address City/State/ZIP Code Phon e Number [address] POCT Glucose (08/09/2017 12:05 AM EST) athologist Signature POC Glucose 128 65 - 199 [facility] mg/dL [facility] [...] Address City/[facility]/[place]IP [place] [address] (ABNORMAL) POCT Glucose (08/08/2017 7:36 PM EST) athologist Signature POC Glucose 215 (H) 65 - 199 [facility] mg/dL [facility] [...] Address City/[facility]/[place]IP [place] [address] (ABNORMAL) POCT Glucose (08/08/2017 6:23 PM EST) athologist Signature POC Glucose 216 (H) 65 - 199 [facility] mg/dL [facility] [...] Address City/[facility]/[place] [address] (ABNORMAL) APTT (08/08/2017 6:00 PM EST) athologist Signature PTT 97 (H) 25 - 35 sec [facility] Comment: The recommended therapeutic range for fu ll dose, unfractionated heparin at [facility] is 80 ? 114 [...] Smith MD HEMATOLOGY ORDERABLES Performing Organization Address City/[facility]/ZIP Code Phon e Number [address] POCT Glucose (08/08/2017 4:42 PM EST) athologist Signature POC Glucose 78 65 - 199 [facility] mg/dL [facility] [...] Organization Address City/State/[place] [address] (ABNORMAL) POCT Glucose (08/08/2017 4:01 PM EST) athologist Signature POC Glucose 58 (L) 65 - 199 [facility] mg/dL [facility] [...] Organization Address City/State/Z[place] [address] POCT Glucose (08/08/2017 11:51 AM EST) athologist Signature POC Glucose 90 65 - 199 [facility] mg/dL [facility] [...] Organization Address City/State/[place] [address] (ABNORMAL) APTT (08/08/2017 10:27 AM EST) athologist Signature PTT 64 (H) 25 - 35 sec [facility] Comment: The recommended therapeutic range for fu ll dose, unfractionated heparin at [facility] is 80 ? 114 [...] Address City/State/ZIP Code Phon e Number [address] POCT Glucose (08/08/2017 8:02 AM EST) athologist Signature POC Glucose 178 65 - 199 [facility] mg/dL [facility] [...] Organization Address City/State/[place] [address] (ABNORMAL) APTT (08/08/2017 4:51 AM EST) athologist Signature PTT >160 25 - 35 [facility] (Critical) sec [facility] LABORATORY Comment: Called by: HOWARD, Read back by: Melba Jaramillo, Date/Time:08/08/17 05:43. The recommended therapeutic range for fu ll dose, unfractionated heparin at [facility] is 80 ? 114 [...] Organization Address City/State/ZIP Code Phon e Number [place] [id number]OS[address] LAB[address]ORY [address] (ABNORMAL) Differential, Automated (08/08/2017 4:51 AM EST) [facility] gist Method Time Signature Neutrophils % 77.9 % [facility]OR[facility]ORY Neutr Abs (ANC) 8.17 (H) 1.70 - [facility] 6.10 [facility] x10(3)/[facility] LABORATORY Lymphocytes % 10.3 % [facility]OR[facility]ORY Lymphocytes Abs 1.1 0.9 - 3.2 [facility] x10(3)/[facility]ORY Monocytes % 7.0 % [facility] Monocyte Abs 0.7 0.3 - 0.9 [facility] x10(3)/[facility] LABORATORY Eosinophils % 3.6 % [facility] Eosinophils Abs 0.4 0.0 - 0.4 [facility] x10(3)/[facility] LABORATORY Basophils % 0.5 % [facility] Basophils Abs 0.0 0.0 - 0.1 [facility] x10(3)/[facility] LABORATORY Immature Gran % 0.70 % [...] Gran Abs 0.07 (H) 0.00 - 0.04 x10(3)/[facility] LABORATORY Specimen Anatomical Collection Method Collection Time Receive d Time (Source) Location / / Volume Laterality Blood specimen 08/08/2017 4:51 AM 018 5:14 (specimen) EST AM EST Resulting Agency Comment Spec In Lab Yonathan Smith MD HEMATOLOGY ORDERABLES Performing Organization Address City/State/[place] [address] (ABNORMAL) Hemogram (08/08/2017 4:51 AM EST) Analysis Performed At Patho logist Time Signature WBC 10.5 (H) 4.0 - 9.5 [facility] LABORATORY RBC 3.27 (L) 4.58 - [facility] 5.54 [facility] x10(6)/[facility] LABORATORY Hemoglobin 9.3 (L) 13.7 - [facility] 16.5 gm/dL [facility] LABORATORY Hematocrit 30.3 (L) 40.5 - [facility] 48.5 % [facility] LABORATORY MCV 92.7 82.9 - [facility] 93.1 [facility] LABORATORY MCH 28.4 27.5 - [place] 32.1 pg [facility] LABORATORY MCHC 30.7 (L) 32.0 - [facility] 35.7 gm/dL [facility] LABORATORY Platelets 252 145 - 357 [facility] x10(3)/[facility] LABORATORY RDWSD 54.6 (H) 36.0 - [facility] 45.0 [facility] LABORATORY RDWCV 16.2 (H) 11.4 - [facility] 13.8 % [facility] LABORATORY MPV 9.1 7.6 - 12.9 [facility] nRBC % Auto 0.0 % [facility]OR[facility] nRBC Abs Auto 0.000 0.000 - [facility] 0.000 [facility] x10(3)/[facility] LABORATORY Specimen Anatomical Collection Method Collection Time Receive d Time (Source) Location / / Volume Laterality Blood specimen 08/08/2017 4:51 AM 018 5:14 (specimen) EST AM EST Resulting Agency Comment Spec In Lab Yonathan Smith MD HEMATOLOGY ORDERABLES Performing Organization Address City/State/[place] [address] (ABNORMAL) Prothrombin Time (08/08/2017 [...] Organization Address City/State/[place] [address] (ABNORMAL) Basic Metabolic Panel (non-fasting) (08/08/2017 4:51 AM EST) athologist Signature Glucose Lvl 229 (H) 65 - 199 [facility] mg/dL [facility] [...] Chloride 94 (L) 98 - 107 mmol/L [facility] [...] or in patients with acute kidney failure. [email or web address] [email or web address] Specimen Anatomical Collection Method Collection Time Receive d Time (Source) Location / / Volume Laterality Blood specimen 08/08/2017 4:51 AM 018 5:14 (specimen) EST AM EST Resulting Agency Comment Spec In Lab Yonathan Smith MD CHEMISTRY ORDERABLES Performing Organization Address City/[facility]/ZIP Code Phon e Number [address] POCT Glucose (08/08/2017 4:20 AM EST) athologist Signature POC Glucose 193 65 - 199 [facility] mg/dL [facility] [...] Address City/[facility]/ZIP Code Phon e Number [address] POCT Glucose (08/07/2017 11:11 PM EST) athologist Signature POC Glucose 124 65 - 199 [facility] mg/dL [facility] [...] Address City/[facility]/[place] [address] (ABNORMAL) APTT (08/07/2017 10:18 PM EST) athologist Signature PTT 114 (H) 25 - 35 sec [facility] Comment: The recommended therapeutic range for fu ll dose, unfractionated heparin at [facility] is 80 ? 114 [...] Smith MD HEMATOLOGY ORDERABLES Performing Organization Address City/[facility]/ZIP [place] [address] POCT Glucose (08/07/2017 8:10 PM EST) athologist Signature POC Glucose 140 65 - 199 [facility] mg/dL [facility] [...] Address City/[facility]/ZIP [place] [address] POCT Glucose (08/07/2017 5:27 PM EST) athologist Signature POC Glucose 187 65 - 199 [facility] mg/dL [facility] [...] Address City/[facility]/[place] [address] POCT Glucose (08/07/2017 3:29 PM EST) athologist Signature POC Glucose 86 65 - 199 [facility] mg/dL [facility] LABORATORY Comment: Supplemental ranges: <140 mg/dL before meals <180 mg/dL all other times of the day Specimen Anatomical Collection Method Collection Time Receive d Time (Source) Location / / Volume Laterality Blood specimen 08/07/2017 3:29 PM 018 3:29 (specimen) EST PM EST Yonathan Smith MD POINT OF CARE TEST ORDERABLE S Performing Organization Address [facility] [place] [address] (ABNORMAL) APTT (08/07/2017 2:50 PM EST) athologist Signature PTT 60 (H) 25 - 35 sec [facility] Comment: The recommended therapeutic range for fu ll dose, unfractionated heparin at [facility] is 80 ? 114 [...] Smith MD HEMATOLOGY ORDERABLES Performing Organization Address City/[facility]/ZIP [facility] [place] [address] (ABNORMAL) POCT Glucose (08/07/2017 2:23 PM EST) athologist Signature POC Glucose 55 (L) 65 - 199 [place] mg/dL [facility] [...] Address City/State/ZIP Code Phon e Number [address] POCT Glucose (08/07/2017 12:08 PM EST) athologist Signature POC Glucose 77 65 - 199 [facility]/dL [facility] [...] Address City/State/ZIP Code Phon e Number [address] (ABNORMAL) Differential, Automated (08/07/2017 7:30 AM EST) [facility] gist Method Time Signature Neutrophils % 73.8 % [facility] LABORATORY Neutr Abs (ANC) 7.17 (H) 1.70 - [facility] 6.10 [facility] x10(3)/[facility] L LABORATORY Lymphocytes % 12.2 % [facility] LABORATORY Lymphocytes Abs 1.2 0.9 - 3.2 [facility] x10(3)/[facility]ORY Monocytes % 9.0 % [facility] LABORATORY Monocyte Abs 0.9 0.3 - 0.9 [facility] x10(3)/[facility] LABORATORY Eosinophils % 3.9 % [facility]ORATORY Eosinophils Abs 0.4 0.0 - 0.4 [facility] x10(3)/[facility] LAB[facility]ATORY Basophils % 0.6 % [facility] LABORATORY Basophils Abs 0.1 0.0 - 0.1 [facility] x10(3)/[facility] LABORATORY Immature Gran % 0.50 % [facility] LABORATORY [...] Organization Address City/State/[place] [address] (ABNORMAL) Hemogram (08/07/2017 7:30 AM EST) Analysis Performed At Patho logist Time Signature WBC 9.7 (H) 4.0 - 9.5 [facility] x10(3)/[facility] LABORATORY RBC 3.54 (L) 4.58 - [facility] 5.54 [facility] x10(6)/[facility] LABORATORY Hemoglobin 9.9 (L) 13.7 - [facility] 16.5 gm/dL [facility] LABORATORY Hematocrit 32.3 (L) 40.5 - [facility] 48.5 % [facility] LABORATORY MCV 91.2 82.9 - [facility] 93.1 fL [facility] LABORATORY MCH 28.0 27.5 - [facility] 32.1 pg [facility] LABORATORY MCHC 30.7 (L) 32.0 - [facility] 35.7 gm/dL [facility] LABORATORY Platelets 312 145 - 357 [facility] x10(3)/[facility] LABORATORY RDWSD 53.2 (H) 36.0 - [facility] 45.0 [facility] LABORATORY RDWCV 16.0 (H) 11.4 - [facility] 13.8 % [facility] LABORATORY MPV 8.9 7.6 - 12.9 [facility] LABORATORY nRBC % Auto 0.0 % [facility] LABORATORY nRBC Abs Auto 0.000 0.000 - [facility] 0.000 [facility] x10(3)/[facility] LABORATORY Specimen Anatomical Collection Method Collection Time Receive d Time (Source) Location / / Volume Laterality Blood specimen 08/07/2017 7:30 AM 018 7:45 (specimen) EST AM EST Resulting Agency Comment Spec In Lab Yonathan Smith MD HEMATOLOGY ORDERABLES Performing Organization Address City/State/ZIP Code Phon e Number [place] [id number]OS[address] LAB[address]ORY Drive (ABNORMAL) Basic Metabolic Panel (non-fasting) (08/07/2017 7:30 AM EST) P athologist Signature Glucose Lvl 80 65 - 199 [facility] mg/dL [facility] [...] estions. Chloride 99 98 - 107 mmol/L [facility] [...] or in patients with acute kidney failure. [email or web address] [email or web address] Specimen Anatomical Collection Method Collection Time Receive d Time (Source) Location / / Volume Laterality Blood specimen 08/07/2017 7:30 AM 018 7:45 (specimen) EST AM EST Resulting Agency Comment Spec In Lab Yonathan Smith MD CHEMISTRY ORDERABLES Performing Organization Address City/[facility]/ZIP Code Phon e Number [address] POCT Glucose (08/07/2017 7:27 AM EST) P athologist Signature POC Glucose 81 65 - 199 [facility] mg/dL [facility] [...] Address City/[facility]/ZIP Code Phon e Number [address] APTT (08/07/2017 7:04 AM EST) athologist Signature PTT 34 25 - 35 sec [facility] LABOR[facility]ORY Comment: The recommended therapeutic range for fu ll dose, unfractionated heparin at [facility] is 80 ? 114 [...] Organization Address City/State/Z[place] [address] (ABNORMAL) Prothrombin Time (08/07/2017 7:04 AM EST) athologist Signature PT 17.3 (H) 11.8 - 14.0 [facility] LABORATORY INR 1.4 (H) 0.9 - 1.1 [facility] Smith MD HEMATOLOGY ORDERABLES Performing Organization Address City/[facility]/[place] [address] POCT Glucose (08/07/2017 4:03 AM EST) athologist Signature POC Glucose 93 65 - 199 [facility]/dL [facility] [...] Organization Address City/State/ZIP [place] [address] POCT Glucose (08/07/2017 12:04 AM EST) athologist Signature POC Glucose 107 65 - 199 [facility] mg/dL [facility] [...] Address City/[facility]/ZIP Code Phon e Number [address] POCT Glucose (08/06/2017 7:56 PM EST) P athologist Signature POC Glucose 178 65 - 199 [facility] mg/dL [facility] [...] Address City/State/ZIP Code Phon e Number [address] [id number] (08/06/2017 2:32 PM EST) Component Value Ref Test Analysis Performed At Patholo gist Range Method Time Signature VB Text Department: Vascular Surgery Lab VASCUBASE Report Patient: [id number] (GREGORY HOANG) CPT: [id number] ICD10: I99.8 Referring Physician: YONATHAN SMITH ?? Indications: Patient with embolic debris s/p cath, now with blue toes on right (severe pain) and mild pain on left, needs amputation, ? marya jamie potential Diabetes mellitus: No ICD10 Diagnosis Code: [...] S tarting on Wed08/06/17 at 1629, Until 08/16/17 at [...] Mcgrath RN) 0807 (Given - Provider: Chiquis Mcrgath RN) 0800 (G iven - Provider: Dory [...] 172 (New Bag - Provider: Chiquis cho RN)175 (Stopped - Provider: Henrique Marks RN) 171 (New Bag - Provider: Chiquis cho RN)174 (Stopped - Provider: Chiquis Mcgrath RN) 2 g, Intravenous, EVERY 24 HOURS, First dose on Wed08/06/17 at 1700, Until Discontinued, Administer over 30 Minutes, Indication for (Active or Suspected): Skin/Skin Structure docusate sodium (COLACE) capsule 100 mg 0827 (Given - Provider: Chiquis Mcgrath RN)2012 (Given - Provider: Henrqiue Marks RN) 08 (Given - Provider: Chiquis Mcgrath RN)2022 (Given - Provider: Mira Truong, RN) 0800 (Given - Provider: Dory Truong, VAMSI) 100 mg, Oral, 2 TIMES DAILY, First dose on 08/13/17 at 0245, Until Discontinued, Routine enoxaparin (LOVENOX) injection 130 mg (CANCELED) 2009 (Given - Provider: Henrique Marks RN) 130 mg, Subcutaneous, NIGHTLY, First dos e on Ivis 08/12/17 at 2100, Until Discontinued, Routine furosemide (LASIX) tablet 40 mg 824 (Given - Provider: Elias Mcgrath RN) 805 (Given - Provider: Chiquis Mcgrath RN) 08 [...] (Given - Provider: Henrique Marks RN) 0631 (Marc iven - Provider: Mira Truong, RN) 175 [...] Routine magnesium oxide (MAG-OX) tablet 400 mg 08 (Given - P rovider: Chiquis Mcgrath RN)2010 [...] to hold) 0800 (Given - Provider: Dory Troung, VAMSI) 25 mg, Oral, 2 TIMES DAILY, [...] mg (COMPLETED) 1714 (Given - Provider: Chiquis Mcgrath, VAMSI) 2.5 [...] RN) 0427 (Given - Provider: Mira Truong, VAMSI)0751 (Given - Provider: oDry Truong, VAMSI)1042 (Given - Provider: Dory Truong, [...]
Routine documented in this encounter Care Teams Political Anthropologist Relationship Specialty Start Date End Date Lovely Vicente MD PCP - General 04/16/[address] [place] [address] documented as of this encounter
--- OUTSIDE RECORDS SUMMARY | 2022-03-11 11:29 | XMS_ITS | Encounter Summary ---
:1945 Author Organization [facility] [place] [address] Care Team Providers Name Role Phone Lovely Vicente MD Primary Care Provider Encounter Details Date Type Department Care Team Description 08/06/2017 Orders Only Vascular Surgery [place] [facility] [place] APRN Ischemia of foot [facility] Jorge [facility] [place] [address] VASCULAR SURGERY [phone] [place], [place] 0[address] (Wo rk) Social History Tobacco [...] Nobles MD [facility] ER [address] [place]LYLE [place] 0[address] (Wo rk) 05/28/2022 Appointment Cardiology Zulma Dolan MD [facility] [address] [place] [address] (Wo rk) 05/28/2022 Laboratory Appointment Lab 05/28/2022 Office Visit Cardiology Zulma Dolan MD [facility] [place] [address] Liz Poole PA [facility] [place] [address] 06/10/2022 Office Visit Dermatology Laura Scherer MD [facility] ER DR [address]-DERMAT [place], [place] 0[address] (Wo rk) documented as [...] 444 ms MUSE SYSTEM (Bezet) Calculated P [place] 44 degrees MUSE SYSTEM Calculated R [place] -31 degrees MUSE SYSTEM Calculated T [place] 106 degrees MUSE SYSTEM INTERPRETATION Normal sinus [...] 19 (L) 20 - 40 [facility] mg/dL [facility] Comment: Prealbumin levels are generally [...] Organization Address City/State/ZIP Code Phon e Number [place] [id number]ORY [address] (ABNORMAL) Basic Metabolic Panel (non-fasting) (08/06/2017 12:32 PM EST) athologist Signature Glucose Lvl 92 65 - 199 [facility] mg/dL [facility] [...] mmol/L [facility] Anion Gap 16 (H) 5 - 15 mmol/L [facility] Calcium 8.5 8.5 - 10.5 mg/dL [facility] Estimated GFR 53 (L) >=60 [facility] Comment: The reported eGFR should be multiplied b y 1.2 for patients. The MDRD is not an appropriate measure o f renal function for patients with body mass extremes or in patients with acute kidney failure. http://Kommerstate.ru.Encore Gaming/DHnkdep http://BitPay/DHMCnkf Specimen Anatomical Collection Method Collection Time Receive d Time (Source) Location / / Volume Laterality Blood specimen 08/06/2017 12:32 8 1:15 (specimen) PM EST PM EST Resulting Agency Comment Spec In Lab Arik Clement MD CHEMISTRY ORDERABLES Performing Organization Address City/State/[place] [address] (ABNORMAL) Hemogram (08/06/2017 12:32 PM EST) Analysis Performed At Patho logist Time Signature WBC 11.8 (H) 4.0 - 9.5 [facility] x10(3)/[facility] LABORATORY RBC 3.49 (L) 4.58 - [facility] 5.54 [facility] x10(6)/[facility] LABORATORY Hemoglobin 9.9 (L) 13.7 - [facility] 16.5 gm/dL [facility] Hematocrit 32.0 (L) 40.5 - [facility] 48.5 % [facility] MCV 91.7 82.9 - [facility] 93.1 [facility] LABORATORY MCH 28.4 27.5 - KATALINA RYAN 32.1 pg [facility] MCHC 30.9 (L) 32.0 - [facility] 35.7 gm/dL [facility] Platelets 326 145 - 357 [facility] x10(3)/[facility] LABORATORY RDWSD 53.4 (H) 36.0 - [place] RYAN 45.0 [facility] LABORATORY RDWCV 16.0 (H) 11.4 - [facility] RYAN 13.8 % [facility] MPV 9.1 7.6 - 12.9 [facility] LABORATORY nRBC % Auto 0.0 % [facility] nRBC Abs Auto 0.000 0.000 - [place] RYAN 0.000 [facility] x10(3)/[facility] LABORATORY Specimen Anatomical Collection Method Collection Time Receive d Time (Source) Location / / Volume Laterality Blood specimen 08/06/2017 12:32 8 1:15 (specimen) PM EST PM EST Resulting Agency Comment Spec In Lab Arik Clement MD HEMATOLOGY ORDERABLES Performing Organization Address City/State/[place] [address] documented in this encounter Visit Diagnoses Diagnosis Ischemia of foot Unspecified circulatory system disorder documented in this encounter Care Teams Automatic Pattern Edger Relationship Specialty Start Date End Date Lovely Vicente MD PCP - General 04/16/[address] [place] [address] documented as of this encounter
--- OUTSIDE RECORDS SUMMARY | 2022-03-11 11:29 | XMS_ITS | Encounter Summary ---
:1945 [place] [address] Care Team Providers Name Role Phone Lovely Vicente MD Primary Care Provider Reason for Visit Auth/Cert Specialty Diagnoses / Procedures Referred By Contact Refer red To Contact Diagnoses Critical lower limb ischemia CELLULITIS RT FOOT Procedures EMERGENCY Referral ID Status Reason Start Date Expiration Date Visits Requ ested Visits Authorized [id number] 1 1 Encounter Details Date Type Department Care Team Description 08/09/2017 Anesthesia Event Main Operating Room Daniele Lizama MD [facility] [place]ESIOLOGY [place] [address] [facility] Rob Jones MD [facility] [place] [address] [place] [address] Anesthesia Record Procedure Summary Procedure Name [...] Knowles, Dory arm), right; VAMSI Rios, RN cooy-dhi-bflgfk catheter system; 20 gauge; 08/16/17; 1047 PIV 07/29/17; 1413; median 07/29/17 1413 by 08/16/17 1047 by cubital vein (antecubital Magdalene Hickey Williams, Dory fossa), left; VAMSI Wyatt, RN ndso-iit-qtjvef catheter system; 20 gauge; 08/16/17; 1047 PIV 08/06/17; 1742; cephalic 08/06/17 1742 by 0920 by vein (lateral side of Taylor Laureano Danah y, Caitlyn C, arm), right; VAMSI BONNER ilzr-qmo-kkphre catheter system; 22 gauge, 1 in length; Eliseo LAUREANO RN VAS; distraction, intradermal injection, tolerated well, appears comfortable; 0; 08/16/17; 0920 Wound 08/07/17; 1335; knee; 08/07/17 1335 by 08/16/17 1047 by laceration; wound occured Barbara Albert iams, Dory PROBATE [place]; 08/16/17; 1047 VAMSI Alonzo, RN PIV 08/07/17; 1734; cephalic 08/07/17 1734 by 1047 by vein (lateral side of Kendrick, Carlos W, Willia ms, Dory arm), left; MARCIE Wyatt RN zaun-bit-tuzeyh catheter system; 22 gauge; distraction, intradermal injection, [...] Santillan MD - 08/09/2017 9:01 AM EST [facility] Department of Anesthesiology Post-procedure Note Patient: Don Fatima Procedure Summary Date Anesthesia Start Anesthesia Stop Room / Location 08/09/17 0802 0901 [facility] Procedure Diagnosis Surgeon Responsible Provider AMPUTATION, 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 Nerve [...] SETUP performed by Manny Mcknight MD at [facility] OR ??? PRO CABG, ARTERIAL, SINGLE N/A 07/07/2017 @CABG, USING ARTERIAL GRAFT;SINGLE ARTERIAL GRAFT (WRVU 33.75) performed by Yuan Retana MD at [facility] OR ??? PRO CABG, ARTERY-VEIN, TWO N/A 07/07/2017 @CABG, TWO VENOUS GRAFTS & ARTERIAL GRAFT (WRVU 7.93) performed by Yuan Retana MD at [facility] ??? PRO COLONOSCOPY, REMV LESN, SNARE 01/16/2014 COLONOSCOPY, POLYPECTOMY, REMOVAL LESION BY SNARE performed by Nohemi Jaimes MD at [facility] ENDOSCOPY ??? PRO ENDOSCOPY W/VIDEO-ASST VEIN HARVEST, CABG Right 07/07/2017 ENDOSCOPIC HARVEST VEIN(S) FOR CABG (WRVU 0.31) performed by Yuan Retana MD at [facility] ??? PRO THYROIDECTOMY 03/28/2013 THYROIDECTOMY, TOTAL OR COMPLETE performed by Manny Mcknight MD at [facility] OR Social History Substance Use Topics [...] adequate IV access. Brody Santillan MD PGY-2, Asian Studies Professor Pager #[phone] Anesthesiology Staff (Dewhirst): Pre-op summary note as [...] MD [facility] DR T[address] [place], [place] 0[address] (Wo rk) 05/28/2022 Appointment Cardiology Zulma Dolan MD [facility] [place], [place] 0[address] (Wo rk) 05/28/2022 Laboratory Appointment Lab 05/28/2022 Office Visit Cardiology Zulma Dolan MD [facility] [place] [address] Liz Poole PA [facility] [place] [address] 06/10/2022 Office Visit Dermatology Laura Scherer MD [facility] DR TE[address]DERMAT [place], [place] 0[address] (Wo rk) documented as of [...] Length: 10 cm Gauge: 21 Needle Type: P-eoifa-caqcz Medication injection made in crementally with aspirations. [...] Procedure) documented in this encounter Care Teams Assorter Laundry Relationship Specialty Start Date End Date Lovely Vicente MD PCP - General 04/16/[address] [place] [address] [address] [place] [address] documented as of this encounter
--- OUTSIDE RECORDS SUMMARY | 2022-03-11 11:29 | XMS_ITS | Encounter Summary ---
:1945 [place] [address] Care Team Providers Name Role Phone Lovely Vicente MD Primary Care Provider Encounter Details Date Type Department Care Team Description 08/04/2017 Orders Only Cardiac Surgery Makayla Wilson PACK WORKER [facility] Jorge [facility] [place] [address] CARDIAC SURGERY [phone] [place], [place] [address] (Wo rk) Social History [...] [facility] ER DR CARLYLE [place] [address] (Wo rk) 05/28/2022 Appointment Cardiology Zulma Dolan MD [facility] [address] [place], [place] [address] (Wo rk) 05/28/2022 Laboratory Appointment Lab 05/28/2022 Office Visit Cardiology Zulma Dolan [place] [address] Liz Poole PA [facility] [place] [address] 06/10/2022 Office Visit Dermatology Laura Scherer MD [facility] ER DR [address]-DERMAT [place], [place] 0[address] (Wo rk) documented as of this encounter Visit Diagnoses Not on filedocumented in this encounter Care Teams Emergency Room Nurse Relationship Specialty Start Date End Date Lovely Vicente MD PCP - General 04/16/[address] [place] [address] documented as of this encounter
--- OUTSIDE RECORDS SUMMARY | 2022-03-11 11:29 | XMS_ITS | Encounter Summary ---
:1945 Author Organization [facility] [place] [address] Care Team Providers Name Role Phone Lovely Vicente MD Primary Care Provider Encounter Details Date Type Department Care Team Description 08/04/2017 Notes Only Cardiac Surgery Makayla Wilson APRN [facility] [place] [address] CARDIAC SURGERY [phone] [place] [address] (Wo rk) Social History Tobacco Use Types [...] Nobles MD [facility] CARDIOLOGY [place], [place] 0375 (Wo rk) 05/28/2022 Appointment Cardiology Zulma Dolan MD [facility] [place], [place] 0[address] (Wo rk) 05/28/2022 Laboratory Appointment Lab 05/28/2022 Office Visit Cardiology Zulma Dolan MD [facility] [place] [address] Liz Poole PA [facility] [place] [address] 06/10/2022 Office Visit Dermatology Laura Scherer MD [facility] DR [address]-DERMAT [place], [place] 0[address] (Wo rk) documented as of this encounter Visit Diagnoses Not on filedocumented in this encounter Care Teams Director Clinical Information Services Relationship Specialty Start Date End Date Lovely Vicente MD PCP - General 04/16/15 [facility] [address] [place] [address] documented as of this encounter
--- OUTSIDE RECORDS SUMMARY | 2022-03-11 11:29 | XMS_ITS | Encounter Summary ---
:1945 [place] [address] Care Team Providers Name Role Phone Lovely Vicente MD Primary Care Provider Encounter Details Date Type Department Care Team Description 08/05/2017 Notes Only Vascular Surgery at [facility] [place], STACIE [facility] [place] [address] VASCULAR SURGERY [phone] [place], [place] [address] (Wo rk) Social History Tobacco [...] [facility] [address] TADE[address] [place], [place] [address] (Wo rk) 05/28/2022 Appointment Cardiology Zulma Dolan MD [facility] [place], [place] 0[address] (Wo rk) 05/28/2022 Laboratory Appointment Lab 05/28/2022 Office Visit Cardiology Zulma Dolan MD [place] [address] Liz Poole PA [facility] [place] [address] 06/10/2022 Office Visit Dermatology Laura Scherer MD [facility] DR [address]-DERMAT [place], [place] 0375 (Wo rk) documented as of this encounter Visit Diagnoses Not on filedocumented in this encounter Care Teams Pizza Baker Relationship Specialty Start Date End Date Lovely Vicente MD PCP - General 04/16/[address] [place] [address] documented as of this encounter
--- OUTSIDE RECORDS SUMMARY | 2022-03-11 11:29 | XMS_ITS | Encounter Summary ---
:1945 [place] [address] Care Team Providers Name Role Phone Lovely Vicente MD Primary Care Provider Encounter Details Date Type Department Care Team Description 08/04/2017 Notes Only Pain Management at Barbra Bruno, STACIE [facility] [place] [address] [place] [address] [phone] (Wo rk) Social History Tobacco Use Types [...] bid) at this time. Barbra Soares, MSN, LEAD SYSTEMS ENGINEER-BC, [facility] documented in this encounter Plan of Treatment Upcoming Encounters Date Type Specialty Care Team Description 03/26/2022 Office Visit Cardiology Vitaliy Nobles MD [facility] DR [address] [place], [place] 0[address] (Wo rk) 05/28/2022 Appointment Cardiology Zulma Dolan MD [facility] [place], [place] 0375 (Wo rk) 05/28/2022 Laboratory Appointment Lab 05/28/2022 Office Visit Cardiology Zulma Dolan MD [facility] [place] [address] Liz Poole PA [facility] [place] [address] 06/10/2022 Office Visit Dermatology Laura Scherer MD [facility] DR TE[address] GR[address]DERMAT [place], [place] 0375 (Wo rk) documented as of this encounter Visit Diagnoses Not on filedocumented in this encounter Care Teams Chemical Engineering Technologist Relationship Specialty Start Date End Date Lovely Vicente MD PCP - General 04/16/[address] [place] [address] documented as of this encounter
--- OUTSIDE RECORDS SUMMARY | 2022-03-11 11:29 | XMS_ITS | Encounter Summary ---
:1945 Author Organization [facility] [place] [address] Care Team Providers Name Role Phone Lovely Vicente MD Primary Care Provider Reason for Visit Auth/Cert Specialty Diagnoses / Procedures Referred By Contact Refer red To Contact Diagnoses Critical lower limb ischemia CELLULITIS RT FOOT Procedures EMERGENCY Referral ID Status Reason Start Date Expiration Date Visits Requ ested Visits Authorized [id number] 1 1 Encounter Details Date Type Department Care Team Description 08/06/2017 Hospital Encounter [facility] [place] [address] Social History Tobacco Use Types Packs/Day [...] Nobles MD [facility] CARDIOLOGY [place], [place] [address] (Wo rk) 05/28/2022 Appointment Cardiology Zulma Dolan MD [facility] [address] [place], [place] [address] (Wo rk) 05/28/2022 Laboratory Appointment Lab 05/28/2022 Office Visit Cardiology Zulma Dolan MD [facility] [place] [address] Liz Poole PA [facility] [place] [address] 06/10/2022 Office Visit Dermatology Laura Scherer MD [facility] DR TEJA GR-DERMAT [facility] [place] [address] (Wo rk) documented as of this encounter Visit Diagnoses Not on filedocumented in this encounter Care Teams Glue Line Operator Relationship Specialty Start Date End Date Lovely Vicente MD PCP - General 04/16/[address] [place] [address] documented as of this encounter
--- OUTSIDE RECORDS SUMMARY | 2022-03-11 11:29 | XMS_ITS | Encounter Summary ---
:1945 Author Organization [facility] [place] [address] Care Team Providers Name Role Phone Lovely Vicente MD Primary Care Provider Reason for Visit Reason Comments Foot Ulcer WOUND CHECK Auth/Cert Specialty Diagnoses / Procedures Referred By Contact Refer red To Contact Diagnoses Critical lower limb ischemia CELLULITIS RT FOOT Procedures EMERGENCY Referral ID Status Reason Start Date Expiration Date Visits Requ ested Visits Authorized [id number] 1 1 Encounter Details Date Type Department Care Team Description 08/06/2017 [facility] ischemia [facility] [place], [place] VASCULAR SURGERY [id number] [place] [address] [phone] Social History Tobacco Use Types Packs/Day Years [...] Smith MD - 08/06/2017 1:00 PM EST [facility] staff: 1. RIGHT leg CLI Interval Hx: [...] Vitaliy Nobles MD [facility] CARDIOLOGY [place], [place] [address] (Wo rk) 05/28/2022 Appointment Cardiology Zulma Dolan MD [facility] [place], [place] [address] (Wo rk) 05/28/2022 Laboratory Appointment Lab 05/28/2022 Office Visit Cardiology Zulma Dolan MD [facility] [place] [address] Liz Poole PA [facility] [place] [address] 06/10/2022 Office Visit Dermatology Laura Scherer MD [facility] DR [address]-DERMAT [place], [place] [address] (Wo rk) documented as of this encounter Visit Diagnoses Diagnosis Critical lower limb ischemia Unspecified circulatory system disorder documented in this encounter Care Teams Inbound Telemarketer Relationship Specialty Start Date End Date Lovely Vicente MD PCP - General 04/16/15 [facility] [address] [place] [address] documented as of this encounter
--- OUTSIDE RECORDS SUMMARY | 2022-03-11 11:29 | XMS_ITS | Encounter Summary ---
:1945 Author Organization [facility] [place] [address] Care Team Providers Name Role Phone Lovely Vicente MD Primary Care Provider Reason for Visit Auth/Cert Specialty Diagnoses / Procedures Referred By Contact Refer red To Contact Diagnoses Critical lower limb ischemia CELLULITIS RT FOOT Procedures EMERGENCY Referral ID Status Reason Start Date Expiration Date Visits Requ ested Visits Authorized [id number] 1 1 Encounter Details Date Type Department Care Team Description 08/06/2017 Laboratory Appointment Lab at [facility] [place]schemia of foot [facility] [place] [address] Social History Tobacco Use Types Packs/Day [...] [facility] ER DR [place]LE [place] [address] (Wo rk) 05/28/2022 Appointment Cardiology Zulma Dolan MD [facility] [place] [address] [place] [address] (Wo rk) 05/28/2022 Laboratory Appointment Lab 05/28/2022 Office Visit Cardiology Zulma Dolan MD [facility] [place] [address] Liz Poole PA [facility] [place] [address] 06/10/2022 Office Visit Dermatology Laura Scherer MD [facility] ER DR [address]-DERMAT [place], [place] 0[address] (Wo rk) documented as [...] Results (ABNORMAL) Prealbumin (08/06/2017 12:32 PM EST) athologist Signature Prealbumin 19 (L) 20 - 40 [facility] mg/dL [facility] Comment: Prealbumin levels are generally [...] Organization Address City/State/[place] [address] (ABNORMAL) Basic Metabolic Panel (non-fasting) (08/06/2017 12:32 PM EST) athologist Signature Glucose Lvl 92 65 - 199 [facility] RYAN mg/dL [facility] Comment: Diabetes: >=200 mg/dL plus [...] Chloride 97 (L) 98 - 107 mmol/L [facility] CO2 25 22 - 31 mmol/L [facility] Anion Gap 16 (H) 5 - 15 mmol/L [facility] Calcium 8.5 8.5 - 10.5 mg/dL [facility] Estimated GFR 53 (L) >=60 [facility] Comment: The reported eGFR should be multiplied b y 1.2 for patients. The MDRD is not an appropriate measure o f renal function for patients with body mass extremes or in patients with acute kidney failure. http://Flocations/DHnkdep http://Flocations/DHMCnkf Specimen Anatomical Collection Method Collection Time Receive d Time (Source) Location / / Volume Laterality Blood specimen 08/06/2017 12:32 8 1:15 (specimen) PM EST PM EST Resulting Agency Comment Spec In Lab Arik Clement MD CHEMISTRY ORDERABLES Performing Organization Address City/State/[place] [address] (ABNORMAL) Hemogram (08/06/2017 12:32 PM EST) Analysis Performed At Patho logist Time Signature WBC 11.8 (H) 4.0 - 9.5 [facility] x10(3)/[facility] LABORATORY RBC 3.49 (L) 4.58 - [facility] 5.54 [facility] x10(6)/[facility] LABORATORY Hemoglobin 9.9 (L) 13.7 [facility] 16.5 gm/dL [facility] Hematocrit 32.0 (L) 40.5 - [facility] 48.5 % [facility] MCV 91.7 82.9 - [facility] 93.1 [facility] LABORATORY MCH 28.4 27.5 - [place] R[place]AN 32.1 pg [facility] MCHC 30.9 (L) 32.0 - [facility] 35.7 gm/dL [facility] Platelets 326 145 - 357 [facility] x10(3)/[facility] LABORATORY RDWSD 53.4 (H) 36.0 - [facility] 45.0 [facility] LABORATORY RDWCV 16.0 (H) 11.4 - [facility] 13.8 % [facility] MPV 9.1 7.6 - 12.9 [facility] LABORATORY nRBC % Auto 0.0 % [facility] nRBC Abs Auto 0.000 0.000 - [facility] 0.000 [facility] x10(3)/[facility] LABORATORY Specimen Anatomical Collection Method Collection Time Receive d Time (Source) Location / / Volume Laterality Blood specimen 08/06/2017 12:32 8 1:15 (specimen) PM EST PM EST Resulting Agency Comment Spec In Lab Arik Clement MD HEMATOLOGY ORDERABLES Performing Organization Address City/State/[place] [address] documented in this encounter Visit Diagnoses Diagnosis Ischemia of foot Unspecified circulatory system disorder documented in this encounter Care Teams Advertising Teacher Relationship Specialty Start Date End Date Lovely Vicente MD PCP - General 04/16/[address] [place] [address] documented as of this encounter
--- OUTSIDE RECORDS SUMMARY | 2022-03-11 11:29 | XMS_ITS | Encounter Summary ---
:1945 Author Organization [facility] [place] [address] Care Team Providers Name Role Phone Lovely Vicente MD Primary Care Provider Reason for Visit Auth/Cert Specialty Diagnoses / Procedures Referred By Contact Refer red To Contact Diagnoses Critical lower limb ischemia CELLULITIS RT FOOT Procedures EMERGENCY Referral ID Status Reason Start Date Expiration Date Visits Requ ested Visits Authorized [id number] 1 1 Encounter Details Date Type Department Care Team Description 08/06/2017 Clinical Support Same Day at [facility] Ischemia of foot [facility] [place] [address] Social History Tobacco Use Types Packs/Day [...] noother symptoms except severe right foot pain. [facility] clinic called as pt on route there [...] Nobles MD [facility] CARDIOLOGY [place], [place] [address] (Wo rk) 05/28/2022 Appointment Cardiology Zulma Dolan MD [facility] [place], [place] [address] (Wo rk) 05/28/2022 Laboratory Appointment Lab 05/28/2022 Office Visit Cardiology Zulma Dolan MD [facility] [place] [address] Liz Poole PA [facility] [place] [address] 06/10/2022 Office Visit Dermatology Laura Scherer MD [facility] [address] [place], [place] [address] (Wo rk) documented as of [...] 444 ms MUSE SYSTEM (Bezet) Calculated P Goldonna 44 degrees MUSE SYSTEM Calculated R Goldonna -31 degrees MUSE SYSTEM Calculated T Goldonna 106 degrees MUSE SYSTEM INTERPRETATION Normal sinus [...] forces of Anteroseptal leads Confirmed by MD Jordan, Scott ([id number]) on 08/06/2017 12:46:39 PM Specimen Anatomical Collection Method Collection Time Receive d Time (Source) Location / / Volume Laterality 08/06/2017 12:37 08/06/2017 PM EST 12:46 PM EST Arik Clement MD ECG ORDERABLES Performing Organization Address City/State/ZIP Code Phon e Number MUSE SYSTEM documented in this encounter Visit Diagnoses Diagnosis Ischemia of foot Unspecified circulatory system disorder documented in this encounter Care Teams Corporate Tax Manager Relationship Specialty Start Date End Date Lovely Vicente MD PCP - General 04/16/[address] [place] [address] documented as of this encounter
--- OUTSIDE RECORDS SUMMARY | 2022-03-11 11:30 | XMS_ITS | Encounter Summary ---
:1945 Author Organization [facility] [place] [address] Care Team Providers Name Role Phone Lovely Vicente MD Primary Care Provider Reason for Visit Auth/Cert Specialty Diagnoses / Procedures Referred By Contact Refer red To Contact Diagnoses Critical lower limb ischemia CELLULITIS RT FOOT Procedures EMERGENCY Referral ID Status Reason Start Date Expiration Date Visits Requ ested Visits Authorized [id number] 1 1 Encounter Details Date Type Department Care Team Description 08/04/2017 Laboratory Appointment Lab [facility] [place] [address] Social History Tobacco Use Types Packs/Day [...] MD [facility] ER [address] [place], [place] [address] (Wo rk) 05/28/2022 Appointment Cardiology Zulma Dolan MD [facility] er [address] [place], [place] [address] (Wo rk) 05/28/2022 Laboratory Appointment Lab 05/28/2022 Office Visit Cardiology Zulma Dolan MD [facility] [place] [address] Liz Poole PA [facility] [place] [address] 06/10/2022 Office Visit Dermatology Laura Scherer MD [facility] ER [address] [place], [place] [address] (Wo rk) documented as of this encounter Visit Diagnoses Not on filedocumented in this encounter Care Teams Director Of Pharmacy Relationship Specialty Start Date End Date Lovely Vicente MD PCP - General 04/16/[address] [place] [address] documented as of this encounter
--- OUTSIDE RECORDS SUMMARY | 2022-03-11 11:30 | XMS_ITS | Encounter Summary ---
:1945 Author Organization [facility] [place] [address] Care Team Providers Name Role Phone Lovely Vicente MD Primary Care Provider Reason for Visit Reason Comments Pain Management Ankle Pain Toe Pain Encounter Details Date Type Department Care Team Description 07/30/2017 Office Visit Pain Management at [facility], Per ipheral neuropathy [place] FAMILY PROTECTION SPECIALIST due to ischemia [facility] [address], [place], [place] [phone] Social History Tobacco Use Types Packs/Day Years [...] APRN - 07/30/2017 1:[address] [facility] [place] [address] Phone: PAIN MANAGEMENT NEW PATIENT / CONSULTATION NOTE DATE OF VISIT 07/30/2017 Patient Don Fatima 1945 REFERRING PROVIDER Lovely Vicente MD [address] [place] [id number] PRIMARY CARE PROVIDER Lovely Vicente MD CHIEF [...] much relief PAST THERAPIES: Nothing MEDICATIONS The [place] Prescription Monitoring Program was checked and no [...] SETUP performed by Manny Mcknight MD at [facility] OR ??? PRO CABG, ARTERIAL, SINGLE N/A 07/07/2017 @CABG, USING ARTERIAL GRAFT;SINGLE ARTERIAL GRAFT (WRVU 33.75) performed by Yuan Retana MD at [facility] OR ??? PRO CABG, ARTERY-VEIN, TWO N/A 07/07/2017 @CABG, TWO VENOUS GRAFTS & ARTERIAL GRAFT (WRVU 7.93) performed by Yuan Retana MD at [facility] OR ??? PRO COLONOSCOPY, REMV LESN, SNARE 01/16/2014 COLONOSCOPY, POLYPECTOMY, REMOVAL LESION BY SNARE performed by Nohemi Jaimes MD at [facility] ENDOSCOPY ??? PRO ENDOSCOPY W/VIDEO-ASST VEIN HARVEST, CABG Right 07/07/2017 ENDOSCOPIC HARVEST VEIN(S) FOR CABG (WRVU 0.31) performed by Yuan Retana MD at [facility] OR ??? PRO THYROIDECTOMY 03/28/2013 [...] referral, Lovely Vicente MD [address] [place] [phone]. [facility], MSN, [employer] FABRICATOR ASSEMBLER-BC, FAMILY PROTECTION SPECIALIST Nurse Practitioner [facility] documented in this encounter Plan of Treatment Upcoming Encounters Date Type Specialty Care Team Description 03/26/2022 Office Visit Cardiology Vitaliy Nobles MD [facility] CARDIOLOGY [place], [place] [address] (Wo rk) 05/28/2022 Appointment Cardiology Zulma Dolan MD [facility] [place], [place] [address] (Wo rk) 05/28/2022 Laboratory Appointment Lab 05/28/2022 Office Visit Cardiology Zulma Dolan MD [facility] [place] [address] Liz Poole PA [facility] [place] [address] 06/10/2022 Office Visit Dermatology Laura Scherer MD [facility] [address] [place], [place] [address] (Wo rk) documented as of this encounter Visit Diagnoses Diagnosis 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
--- OUTSIDE RECORDS SUMMARY | 2022-03-11 11:30 | XMS_ITS | Encounter Summary ---
:1945 Author Organization [facility] [place] [address] Care Team Providers Name Role Phone Lovely Vicente MD Primary Care Provider Reason for Visit Reason Comments Foot Pain Auth/Cert Specialty Diagnoses / Procedures Referred By Contact Refer red To Contact Diagnoses Ischemic foot Procedures NAYE OBSVO Referral ID Status Reason Start Date Expiration Date Visits Requ ested Visits Authorized [id number] 1 1 Encounter Details Date Type Department Care Team Description 07/27/2017 Emergency 1 [facility] Lokesh Swenson MD [facility] [place] [address] Femoral artery pseudo-aneurysm, right; [facility] Tam Bauman MD [facility] [place] [address] [place] [phone] Social History Tobacco Use Types Packs/Day [...] in this encounter Discharge Summaries Carlos Alberto Roslaes MD - 07/27/2017 1:36 PM EST Discharge Summary Patient Name: Gregory Fatima Patient Age: 72 y.o. Language: Belgian Race: White Ethnicity: Not nor Admit date: [...] please contact your inpatient physician through the [facility] [employer] . Issues after hours and on weekends [...] RLE critical limb ischemia, who presented to [facility] with worsening RLE pain. Pt post-op course after CABG was significant for paroxysmal Afib, and he was started on Coumadin given elevated EQGT5QZIOR score. 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 He [...] in the last 7068 hours. Invalid input(s): [id number] Recent Labs 07/08/17 0400 07/07/17 0515 07/06/17 [...] (it was low at 1.6 here at [facility]) 7. Use the tramadol if dilaudid or tylenol is not working 8. Stop taking the potassium supplement - your blood potassium level was elevated. Ask your doctors at future visits if this should be restarted. 9. Antibiotic for 5 days recommended by cardiothoracic surgery for chest wound drainage Follow-Up Appointments Vascular surgery as previously schedule Your Inpatient Doctor(s) at [facility]: CARLOS ALBERTO ROSALES MD General Instructions None Future Appointments and Orders Future Appointments Provider Department Dept Phone 07/30/2017 8:30 AM OSWALDO, THREE L Lab 3L [facility] [phone] 07/30/2017 9:40 AM Danette Maxwell APRN Cardiology at [place] [phone] 08/04/2017 1:00 PM Daniele Mooney [place] Vascular Lab at [place] [phone] 08/04/2017 2:15 PM Arik Clement MD Vascular Surgery at [place] [phone] 08/11/2017 10:00 AM [facility] ROOM 2 XRay at [place] [phone] Please go to Make Up Worker Area 3T ([place] Location). 08/11/2017 11:00 AM Yuan Retana MD Cardiac Surgery at [place] [phone] 09/07/2017 3:00 PM LAB, THREE L Lab 3L [facility] [phone] 09/07/2017 4:00 PM Luz Prescott MD Endocrinology at [place] [phone] Discharge References/Attachments None documented in this encounter [...] (it was low at 1.6 here at [facility]) 3. Use the tramadol if dilaudid or tylenol is not working 4. Stop taking the potassium supplement - your blood potassium level was elevated. Ask your doctors at future visits if this should be restarted. 5. Antibiotic for 5 days recommended by cardiothoracic surgery for chest wound drainage Follow-Up Appointments Vascular surgery as previously schedule Your Inpatient Doctor(s) at [facility]: CARLOS ALBERTO ROSALES MD documented [...] Gas) No results found for: PHART, PO2ART, NWQ4XKM Assessment/Plan: 72 y.o. male s/p CABG in [...] intervention: Education Nutrition Recommendations: Recommend continuation of [facility], CHO2 diet order Patient and [...] Orders Diet Daily Healthy Menu Choices/Cardiac diet ([facility]-Diet) 60/ CHO counting level 2 Frequency: Effective Now Number of Occurrences: Until Specified Admit Weight: 83.92 kg Estimated body mass index is 28.13 kg/(m^2) as calculated from the following: Height as of this encounter: 172.7 cm (5' 8). Weight as of this encounter: 83.9 kg (185 lb). [place] body weight: 68.4 kg (150 lb 12.7 [...] RLE critical limb ischemia, who presented to [facility] with worsening RLE pain. Visited [...] ischemia ??? BPH (benign prostatic hyperplasia) ??? AMRIA VICTORIA (obstructive sleep apnea) on [...] spent >30 minutes (Day of Discharge Code 81509) involved in the final examination of the [...] Melanoma ID: 72 y.o. Male presents to [facility] with persistent pain b/l lower extremities History of Present Illness: HPI 72 y.o. male with PMH ASCVD s/p CABG (07/07/17), MARIA VICTORIA on CPAP QHS, HTN, HLD, DM2, with recent hospitalization for RLE critical limb ischemia, who presented to [facility] with worsening RLE pain. Pt post-op course after CABG was significant for paroxysmal Afib, and he was started on Coumadin given elevated QFWF7VEODA score. 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 He [...] at [facility] ENDOSCOPY ??? PRO ENDOSCOPY W/VIDEO-ASST VEIN HARVEST, CABG Right 07/07/2017 ENDOSCOPIC HARVEST VEIN(S) FOR CABG (WRVU 0.31) performed by Yuan Retana MD at [facility] MAIN OR ??? PRO THYROIDECTOMY 03/28/2013 THYROIDECTOMY, TOTAL OR COMPLETE performed by Manny Mcknight MD at [facility] MAIN OR Prior To Admission Medications: [...] Procedure Component Value Units Date/Time Blood culture [[id number]] Collected: 07/09/1739 Lab Status: Final result Specimen: Blood from Arm, Right Updated: 07/14/17701 Blood Culture No growth at 5 days. Blood culture [[id number]] Collected: 07/09/170 Lab Status: Final result Specimen: [...] limb ischemia following CABG, who presented to [facility] from home with persistent [...] continued Diet Daily Healthy Menu Choices/Cardiac diet ([facility]-Diet) 60/60/75 CHO counting level 2Cardiac, low salt, CHO 2 Discharge planning Pending improvement in pain control PT/OT/Speech PT ordered Lines/Access PIV Ocasio catheter No DVT/GI Prophylaxis Lovenox bridge to Coumadin, SCD. Code status Full Code Family PCP Lovely Vicente MD [phone] Attestation Please see my note for details [...] encounter Miscellaneous Notes Plan of Care - Scio-Joyce Damian, PT - 07/27/2017 3:26 PM EST [...] Anticipated Discharge Disposition: home with assist Pager: [phone] JOYCE KING, PT Inpatient Physical Therapy 2017 [...] evaluation including the following functional test(s) [facility]. Current ability measures, co-morbidities and clinical [...] a lovenox bridge. Mr. Fatima returns to [facility] tonight because of ongoing [...] at [facility] ENDOSCOPY ??? PRO ENDOSCOPY W/VIDEO-ASST VEIN HARVEST, CABG Right 07/07/2017 ENDOSCOPIC HARVEST VEIN(S) FOR CABG (WRVU 0.31) performed by Yuan Retana MD at [facility] MAIN OR ??? PRO THYROIDECTOMY 03/28/2013 THYROIDECTOMY, TOTAL OR COMPLETE performed by Manny Mcknight MD at [facility] MAIN OR MEDICATIONS: No current facility-administered [...] up in clinic 1-2 weeks after discharge. [facility] Vascular Surgery Plan of Care - [...] changes;skin temperature changes ED Triage - Colby Rodrigeuz - 07/27/2017 12:20 AM EST Patient arrives [...] Nobles MD [facility] [address] [place], [place] [address] (Wo rk) 05/28/2022 Appointment Cardiology Zulma Dolan MD [facility] [address] [place], [place] [address] (Wo rk) 05/28/2022 Laboratory Appointment Lab 05/28/2022 Office Visit Cardiology Zulma Dolan [place] [address] Liz Poole PA [facility] [place] [address] 06/10/2022 Office Visit Dermatology Laura Scherer MD [facility] [address] [place] [place], [place] [address] (Wo rk) documented as of [...] section. TYPE AND SCREEN STAT 07/27/2017 12:53 ([facility]CG[facility]/SHANDA) AM EST BASIC METABOLIC PANEL STAT 07/27/2017 12:53 Re sults for this (NON-FASTING) AM EST procedure are in the results section. documented in this encounter Results POCT Glucose (07/27/2017 11:53 AM EST) P athologist Signature POC Glucose 175 65 - 199 [facility] mg/dL [facility] LABORATORY [...] Address City/State/[place] [address] Arterial Duplex Leg, Unil (07/27/2017 7:40 AM EST) Component Value Ref Test Analysis Performed At Patholo gist Range Method Time Signature VB Text Department: Vascular Surgery Lab VASCUBASE Report Patient: [id number] (GREGORY FATIMA) CPT: 71191 ICD10: I97.610;I72.4;Z09 Referring Physician: TAM BAUMAN ?? [...] Glucose 96 65 - 199 [facility] mg/dL [facility] LABORATORY [...] Organization Address City/State/[place] [address] ABORH Recheck Status (07/27/2017 12:53 [...] Address City/State/ZIP Code Phon e Number [address] Gold Tube HOLD (07/27/2017 12:53 AM EST) P athologist Signature Gold Hold Sample in [facility]. [facility] LABORATORY Specimen Anatomical Collection Method Collection Time Receive d Time (Source) Location / / Volume Laterality Blood specimen Venous Draw / 07/27/2017 12:53 07/27/19 18 1:01 (specimen) Unknown AM EST AM EST Angela Swenson MD CHEMISTRY ORDERABLES Performing Organization Address City/[facility]/ZIP Code Phon e Number [address] (ABNORMAL) Differential, Automated (07/27/2017 12:53 AM EST) Patholo gist Method Time Signature Neutrophils % 75.0 % [facility] LABORATORY Neutr Abs (ANC) 11.30 (H) 1.70 - [facility] 6.10 [facility] x10(3)/[facility] LABORATORY Lymphocytes % 9.9 % [facility] LABORATORY Lymphocytes Abs 1.5 0.9 - 3.2 [facility] x10(3)/[facility] LABORATORY Monocytes % 8.6 % [facility] LABORATORY Monocyte Abs 1.3 (H) 0.3 - 0.9 [facility] x10(3)/[facility] LABORATORY Eosinophils % 4.8 % [facility] LABORATORY Eosinophils Abs 0.7 (H) 0.0 - 0.4 [facility] x10(3)/[facility] LABORATORY Basophils % 0.8 % [facility] LABORATORY Basophils Abs 0.1 0.0 - 0.1 [facility] x10(3)/[facility] LABORATORY Immature Gran % 0.90 % [facility] [...] Gran Abs 0.13 (H) 0.00 - 0.04 x10(3)/[facility] LABORATORY Specimen Anatomical Collection Method Collection Time Receive d Time (Source) Location / / Volume Laterality Blood specimen 07/27/2017 12:53 8 1:00 (specimen) AM EST AM EST Resulting Agency Comment Spec In Lab Angela Swenson MD HEMATOLOGY ORDERABLES Performing Organization Address City/State/ZIP [place] [address] (ABNORMAL) Hemogram (07/27/2017 12:53 AM EST) Analysis Performed At Patho logist Time Signature WBC 15.0 (H) 4.0 - 9.5 [facility] x10(3)/[facility] LABORATORY RBC 3.59 (L) 4.58 - [facility] 5.54 [facility] x10(6)/[facility] LABORATORY Hemoglobin 10.3 (L) 13.7 - [facility] 16.5 gm/dL [facility] LABORATORY Hematocrit 32.6 (L) 40.5 - [facility] 48.5 % [facility] LABORATORY MCV 90.8 82.9 - [facility] 93.1 [facility] LABORATORY MCH 28.7 27.5 - [facility] 32.1 pg [facility] LABORATORY MCHC 31.6 (L) 32.0 - [facility] 35.7 gm/dL [facility] LABORATORY Platelets 322 145 - 357 [facility] x10(3)/[facility] LABORATORY RDWSD 48.7 (H) 36.0 - [facility] 45.0 [facility] LABORATORY RDWCV 14.7 (H) 11.4 - [facility] 13.8 % [facility] LABORATORY MPV 8.9 7.6 - 12.9 [facility] LABORATORY nRBC % Auto 0.0 % [facility] LABORATORY nRBC Abs Auto 0.000 0.000 - [facility] 0.000 [facility] x10(3)/[facility] LABORATORY Specimen Anatomical Collection Method Collection Time Receive d Time (Source) Location / / Volume Laterality Blood specimen 07/27/2017 12:53 8 1:00 (specimen) AM EST AM EST Resulting Agency Comment Spec In Lab Angela Swenson MD HEMATOLOGY ORDERABLES Performing Organization Address City/[facility]/[place] [address] Antibody screen (07/27/2017 12:53 AM EST) Patholo gist Method Time Signature Ab Screen Negative [facility] LABORATORY Expires at 07/30/2017 [facility] 2359 on: [facility] LABORATORY Specimen Anatomical Collection Method Collection Time Receive d Time (Source) Location / / Volume Laterality Blood specimen 07/27/2017 12:53 8 (specimen) AM EST 12:58 AM EST Resulting Agency Comment Spec In Lab Angela Swenson MD BLOOD BANK ORDERABLES Performing Organization Address City/[facility]/[place] [address] ABO/Rh Typing (07/27/2017 12:53 [...] City/[facility] [place] [address] (ABNORMAL) Prothrombin Time (07/27/2017 [...] Organization Address City/State/ZIP [place] [address] (ABNORMAL) Basic Metabolic Panel (non-fasting) (07/27/2017 12:53 AM EST) athologist Signature Glucose Lvl 95 65 - 199 [facility] mg/dL [facility] LABORATORY Comment: Diabetes: >=200 mg/dL plus symp toms BUN 37 (H) 10 - 20 mg/dL [facility] LABORATORY Creatinine 1.49 0.80 - 1.50 mg/dL [facility] LABORATORY Sodium 137 135 - 145 mmol/L [facility] LABORATORY Potassium 5.1 (H) 3.5 - 5.0 mmol/L [facility] [...] 10.5 mg/dL [facility] LABORATORY Estimated GFR 46 (L) >=60 [facility] LABORATORY Comment: The reported eGFR should be multiplied b y 1.2 for patients. The MDRD is not an appropriate measure o f renal function for patients with body mass extremes or in patients with acute kidney failure. 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 Right foot pain Pain in limb ASHD (arteriosclerotic heart disease) Coronary atherosclerosis of unspecified type of vessel, [place] or graft Cardiomyopathy, ischemic Other specified forms [...] Tamiko Roblero RN)1408 (Given - Provider: Zulma Arndt, VAMSI) 1,000 mg, Oral, EVERY 8 HOURS SCHEDULED, [...] mg, Oral, EVERY 4 HOURS PRN, Starting Wed07/27/17 at 0403, Until Wed07/27/17 at 1726, Pain, for mild pain (1-3), May give an additional 2 mg once if pain not relieved in 30-60 minutes., Routine HYDROmorphone (DILAUDID) tablet 4 mg(Linked Group 3) 0505 (See Alternative - Provider: Tamiko Roblero RN) 4 mg, Oral, EVERY 4 HOURS PRN, Starting Wed07/27/17 at 0403, Until Wed07/27/17 at 1726, Pain, for moderate pain (4-6), May give an additional 2 mg once if pain not relieved in 30-60 minutes., Routine lidocaine (XYLOCAINE) 10 mg/mL (1 %) injection 3 mg 3 mg (0.3 mL), Subcutaneous, ONCE PRN, 1 dose, Starting Wed07/27/17 at 0425, Until Wed07/27/17 at 1726, for discomfort with PIV insertion, [...] Sensitive to insulin lean patient or total gmoez y dose of all insulin needed to [...]
Routine documented in this encounter Care Teams Journeyman Wireman Relationship Specialty Start Date End Date Lovely Vicente MD PCP - General 04/16/[address] [place] [address] [address] [place] [address] documented as of this encounter
--- OUTSIDE RECORDS SUMMARY | 2022-03-11 11:30 | XMS_ITS | Encounter Summary ---
:1945 [place] [address] Care Team Providers Name Role Phone Lovely Vicente MD Primary Care Provider Reason for Visit Reason Comments Hospital Transfer cold foot post CABG Auth/Cert Specialty Diagnoses / Procedures Referred By Contact Refer red To Contact Diagnoses Critical lower limb ischemia Procedures NAYE IPI Referral ID Status Reason Start Date Expiration Date Visits Requ ested Visits Authorized [id number] 1 1 Encounter Details Date Type Department Care Team Description 07/20/2017 Hospital Encounter 4 Herminia Ibarra MD [facility] [place] [address] Critical lower limb [facility] Arik Clement MD [facility] [place] [address] [place] [address] Social History Tobacco Use Types Packs/Day Years [...] home. Important Studies and Lab Data: Labs: [facility] Lab Results Component Value Date INR 1.5 [...] ?? Left ? Pressure (mm Hg) ?? JULAIN ??Waveform ?TBI ?? Common Femoral Artery ?Triphasic [...] For any problems or questions please call [phone] ZELDA Smith, gardener florist Nurse Clinician For issues on weeknights after 5pm and weekends please call [phone] and ask for the Vascular Fellow soft iron inspector. General Instructions None Future Appointments and Orders Future Appointments Provider Department Dept Phone 08/04/2017 1:00 PM Daniele Mooney [place] [facility] [place] [phone] 08/04/2017 2:15 PM Arik Clement MD Vascular Surgery at [place] [phone] 09/07/2017 3:00 PM MAYRA CHACON Lab [facility] [phone] 09/07/2017 4:00 PM Luz Prescott MD Endocrinology at [place] [phone] Future Orders Complete By Expires Arterial Duplex Leg, Unil [VAS32 Custom] 07/27/2017 (Approximate) 01/26/2018 Process Instructions: There is no in-house vascular mill labor supervisor available on weeknights (5pm-8am), weekends, or holidays. IF THIS IS A REQUEST FOR AN EMERGENT STUDY DURING THOSE HOURS, please have the senior provider responsible for the patient page the Vascular Surgery Fellow/Senior Resident soft iron inspector to discuss options. Scheduling Instructions: Questions: Indication for study/signs & symptoms: Right femoral PSA s/p cardiac cath Question to be answered: bloodflow to PSA Laterality: Right Is there a RIGHT LOWER EXTREMITY graft?: No Lower limb right segments: Common Femoral Is there a stent?: No At which location will this be performed?: [place] Referral to Home Health - at DISCHARGE [[id number] CPT(R)] As directed Process Instructions: Scheduling Instructions: Comments: DOCUMENTATION FOR VNA SERVICES (INCLUDING THOSE PATIENTS WITH MEDICARE COVERAGE REQUIRING HOME VNA SERVICES AND/OR HOSPICE SERVICES) PATIENT'S LOCATION: Gregory Fatima [address] [place] [address] [place] [phone] (home) Cell: Telephone Information: Nca Certified Concierge's Name: self In discussion with the attending physician, it is certified that this patient is under their care and that they, or a Nurse Practitioner,Clinical Nurse specialist or Physician Trauma Director who is working directly with them, had [...] CARE AGENCY: [facility] ([facility] [place] [facility]-is in [place] PHONE: [phone] FAX: [phone] Start of care: 24- 48 hours FOR [...] patient'sPCP: Lovely Vicente MD [address] [facility] [place] / [place] [address] All VNA agencies which cover the area [...] For any problems or questions please call [phone] ZELDA Smith, gardener florist Nurse Clinician For issues on weeknights after 5pm and weekends please call [phone] and ask for the Vascular Fellow soft iron inspector. documented in this encounter Medications at Time [...] RN - 07/20/2017 2:53 PM EST The patient/herbicide service sales representative has been provided a list of Home Health Agencies/DME vendors which serve their preferred geographic area. A letter describing our affiliations was reviewed with them and theywere educated about their right to choose where referrals are placed. Patient requests referral to [facility] [employer]. PHONE: [phone] FAX: [phone]. Expected date of discharge: 07/20/2017 . Referral routed to the Metal Control Worker for matching with agency/vendor and to provide any required information. Naty Pulliam RN - 07/20/2017 11:37 AM EST The patient/herbicide service sales representative has been provided a list of Home Health Agencies/DME vendors which serve their preferred geographic area. A letter describing our affiliations was reviewed with them and theywere educated about their right to choose where referrals are placed. Patient requests referral to [facility] ([facility] [place] [facility]- is in [place] [facility] PHONE: [phone] FAX: [phone]. Expected date of discharge: 07/20/2017 . Referral routed to the Metal Control Worker for matching with agency/vendor and to provide any required information. Katina Pulliam RNhi lo driver Janneth Lee MD - 07/20/2017 7:29 AM [...] Vascular Surgery History and Physical HPI: Gregory Faitma is a 72 y.o. male with a [...] SETUP performed by Manny Mcknight MD at [facility] MAIN OR ??? PRO CABG, ARTERIAL, SINGLE N/A 07/07/2017 @CABG, USING ARTERIAL GRAFT;SINGLE ARTERIAL GRAFT (WRVU 33.75) performed by Yuan Retana MD at [facility] MAIN OR ??? PRO CABG, ARTERY-VEIN, TWO N/A 07/07/2017 @CABG, TWO VENOUS GRAFTS & ARTERIAL GRAFT (WRVU 7.93) performed by Yuan Retana MD at [facility] MAIN OR ??? PRO COLONOSCOPY, REMV LESN, SNARE 01/16/2014 COLONOSCOPY, POLYPECTOMY, REMOVAL LESION BY SNARE performed by Nohemi Jaimes MD at [facility] ENDOSCOPY ??? PRO ENDOSCOPY W/VIDEO-ASST VEIN HARVEST, CABG Right 07/07/2017 ENDOSCOPIC HARVEST VEIN(S) FOR CABG (WRVU 0.31) performed by Yuan Retana MD at [facility] MAIN OR ??? PRO THYROIDECTOMY 03/28/2013 THYROIDECTOMY, TOTAL OR COMPLETE performed by Manny Mcknight MD at [facility] MAIN OR Functional Status/Social Hx: Social [...] -ISS -pain control Discussed with Vascular Fellow soft iron inspector. Chris Valadez MD PGY2 Pager [phone] documented in this encounter ED Notes Annita Reaves MD - 07/20/2017 3:15 PM EST Emergency Department Gregory Fatima is a 72 y.o. male who [place] [facility] [place] arterial thrombosis. History [...] 04/05/2013 Hospitalizations Within the Past 30 Days: [facility] 07/05/17 Anticipated Length Of [...] Health/Prescription Coverage: Primary Insurance: MEDICARE Secondary Insurance: [facility] Prescription Coverage: See above Preferred Pharmacy: [facility] Other: N/A Primary Care Provider: Lovely Vicente MD [phone] Patient/Caregiver Goals of Treatment: Patient plans to return home when medically ready Potential Needs for Transition of Care: Rehab/SNF: N/A Home Health: [facility] ([facility] [place] [facility]-is in [place] PHONE: [phone] FAX: [phone] DME: N/A Dialysis: N/A Community Resources: N/A Transportation: Patient family will transport Other: N/A Anticipated Barriers to Discharge/Special Considerations: None Plan: Patient plans to return home with home health services when medically ready A member of the Care Management team will continue to monitor progress, follow for continuity of care and assist with transition of care planning. Naty Pulliam, RN Pager: [phone] ED Triage - Rayna Weir RN - 07/20/2017 12:28 AM EST Pt transferred from [place] for blue right foot and painful [...] Nobles MD [facility] DR T[place]O [place], [place] [address] (Wo rk) 05/28/2022 Appointment Cardiology Zulma Dolan MD [facility] [address] [place] 0[address] (Wo rk) 05/28/2022 Laboratory Appointment Lab 05/28/2022 Office Visit Cardiology Zulma Dolan MD [facility] [address] Liz Poole PA [facility] [place] [address] 06/10/2022 Office Visit Dermatology Laura Scherer MD [facility] DR [address]MAT [facility] [place] [address] (Wo rk) documented as of this encounter Procedures Procedure Name Priority Date/Time Associated Comments Diagnosis CLERK ENTRY LEVEL SCAN 09/02/2017 12:00 Res ults for this [...] TO LAB EST procedure are i n ([facility]) the results section. APTT STAT 07/20/2017 2:25 AM Results f or this EST procedure are i n the results section. PROTHROMBIN TIME STAT 07/20/2017 2:25 AM Resul ts for this EST procedure are i n the results section. BASIC METABOLIC PANEL STAT 07/20/2017 2:25 AM Results for this (NON-FASTING) EST procedure are in the results section. documented in this encounter Results SCAN DOC: CLERK ENTRY LEVEL (09/02/2017 12:00 AM EST) Narrative 09/02/2017 12:00 AM EST This result has an attachment that is no t available. Ordered by an unspecified provider. Scanning Provider MEDIA MGR SCAN EXT ORDR/RSLT POCT Glucose (07/20/2017 12:04 PM EST) P athologist Signature POC Glucose 189 65 - 199 [facility] mg/dL [facility] LABORATORY [...] Organization Address City/State/[place] [address] (ABNORMAL) Differential, Automated (07/20/2017 10:34 AM EST) Patholo gist Method Time Signature Neutrophils % 84.3 % [facility] LABORATORY Neutr Abs (ANC) 14.27 (H) 1.70 - [facility] 6.10 [facility] x10(3)/[facility] LABORATORY Lymphocytes % 5.6 % [facility] LABOR[facility]ORY Lymphocytes Abs 1.0 0.9 - 3.2 [facility] x10(3)/[facility] LABORATORY Monocytes % 6.1 % [facility] LABOR[facility]ORY Monocyte Abs 1.0 (H) 0.3 - 0.9 [facility] x10(3)/[facility] LABORATORY Eosinophils % 2.4 % [facility] LABOR[facility]ORY Eosinophils Abs 0.4 0.0 - 0.4 [facility] x10(3)/[facility] LABORATORY Basophils % 0.5 % [facility] LABOR[facility]ORY Basophils Abs 0.1 0.0 - 0.1 [facility] x10(3)/[facility] LABORATORY Immature Gran % 1.10 % [facility] [...] Organization Address City/State/[place] [address] (ABNORMAL) Hemogram (07/20/2017 10:34 AM EST) Analysis Performed At Patho logist Time Signature WBC 17.0 (H) 4.0 - 9.5 [facility] x10(3)/[facility] LABORATORY RBC 3.70 (L) 4.58 - [facility] 5.54 [facility] x10(6)/[facility] LABORATORY Hemoglobin 10.8 (L) 13.7 - [facility] 16.5 gm/dL [facility] LABORATORY Hematocrit 33.4 (L) 40.5 - [facility] 48.5 % [facility] LABORATORY MCV 90.3 82.9 - [facility] 93.1 [facility] LABORATORY MCH 29.2 27.5 - [facility] 32.1 pg [facility] LABORATORY MCHC 32.3 32.0 - [facility] 35.7 gm/dL [facility] LABORATORY Platelets 211 145 - 357 [facility] x10(3)/[facility] LABORATORY RDWSD 49.1 (H) 36.0 - [facility] RYAN 45.0 [facility] LABORATORY RDWCV 14.7 (H) 11.4 - [facility] RYAN 13.8 % [facility] LABORATORY MPV 9.2 7.6 - 12.9 [facility] LABORATORY nRBC % Auto 0.0 % [facility] LAB[facility]ORY nRBC Abs Auto 0.000 0.000 - [facility] RYAN 0.000 [facility] x10(3)/[facility] LABORATORY Specimen Anatomical Collection Method Collection Time Receive d Time (Source) Location / / Volume Laterality Blood specimen 07/20/2017 10:34 7 (specimen) AM EST 10:39 AM EST Resulting Agency Comment Spec In Lab Arik Clement MD HEMATOLOGY ORDERABLES Performing Organization Address City/[facility]/[place] [address] (ABNORMAL) APTT (07/20/2017 10:34 AM EST) P athologist Signature PTT 79 (H) 25 - 35 sec [facility]ORY Comment: The recommended therapeutic range for fu ll dose, unfractionated heparin at [facility] is [...] Clement MD HEMATOLOGY ORDERABLES Performing Organization Address City/[facility]/ZIP Code Phon e Number [address] POCT Glucose (07/20/2017 7:41 AM EST) P athologist Signature POC Glucose 174 65 - 199 [facility] mg/dL [facility] LABORATORY [...] [facility]/ZIP Code Phon e Number [address] JULIAN, legs, multiple levels (07/20/2017 7:33 AM EST) Component Value Ref Test Analysis Performed At Patholo gist Range Method Time Signature VB Text Department: Vascular Surgery Lab VASCUBASE Report Patient: [id number] (GREGORY FATIMA) CPT: 55539 ICD10: I75.021;I99.8 Referring Physician: ARIK CLEMENT ?? [...] At [facility] Range Method Time Signature VB Text Department: Vascular Surgery Lab VASCUBASE Report Patient: [id number] (GREGORY FATIMA) CPT: 58978 ICD10: I97.610;I99.8 Referring Physician: ARIK CLEMENT ?? [...] Signature POC Glucose 199 65 - 199 [facility] mg/dL [facility] LABORATORY [...] [facility]/[place] [address] Lactate, whole blood, send to lab ([facility]/CGP) (07/20/2017 2:25 AM EST) P athologist Signature Lactate WB 2.0 0.5 - 2.2 [facility] mmol/L [facility] LABORATORY Specimen Anatomical Collection Method Collection Time Receive d Time (Source) Location / / Volume Laterality Blood specimen Venous Draw / 07/20/2017 2:25 AM 2016 2:37 (specimen) Unknown EST AM EST Resulting Agency Comment Spec In Lab Zulma Samuel MD CHEMISTRY ORDERABLES Performing Organization Address [facility]/[place] [address] (ABNORMAL) APTT (07/20/2017 2:25 AM EST) P athologist Signature PTT 36 (H) 25 - 35 sec [facility] Comment: The recommended therapeutic range for fu ll dose, unfractionated heparin at [facility] is [...] Reaves MD HEMATOLOGY ORDERABLES Performing Organization Address City/[facility]/[place] [address] (ABNORMAL) Prothrombin Time (07/20/2017 2:25 AM EST) P athologist Signature PT 17.7 (H) 11.8 - 14.0 [facility] LABORATORY [...] Organization Address City/State/[place] [address] (ABNORMAL) Basic Metabolic Panel (non-fasting) (07/20/2017 2:25 AM EST) athologist Signature Glucose Lvl 187 65 - 199 [facility] mg/dL [facility] LABORATORY Comment: Diabetes: >=200 mg/dL plus symp toms BUN 35 (H) 10 - 20 mg/dL [facility] LABORATORY Creatinine 1.51 (H) 0.80 - 1.50 mg/dL [facility] LABORATORY Sodium 134 (L) 135 - 145 mmol/L [facility] LABORATORY Potassium Not Perf 3.5 - 5.0 mmol/L [facility] LABORATORY Comment: Specimen hemolyzed. Called by: [facility], Read back by: Chitra Orantes, Date/Time:07/20/17 03:05. [...] or in patients with acute kidney failure. http://LocalSense/DHnkdep http://LocalSense/DHMCnkf Specimen Anatomical Collection Method Collection Time Receive d Time (Source) Location / / Volume Laterality Blood specimen 07/20/2017 2:25 AM 017 2:33 (specimen) EST AM EST Resulting Agency Comment Spec In Lab Annita Reaves MD CHEMISTRY ORDERABLES Performing Organization Address City/State/[place] [address] documented in this encounter [...] 02 35 (New Bag - Provider: Rayna Weir, VAMSI) 100 mL/hr, at 100 mL/hr, Intravenous, CO [...] Group 2) 0-8,000 Units, Intravenous, BOLUS PER MIKKI RUBIO [...] mg (CANCELED) 0145 (Given - Provider: Rayna Weir RN) 0.5 mg, Intravenous, EVERY 30 MIN PRN, [...] to med 0-8,000 Units, Intravenous, BOLUS PER [facility] PROTOCOL, Starting Wed07/20/17 at 0424, [...]
Routine documented in this encounter Care Teams Teacher Public Health Relationship Specialty Start Date End Date Lovely Vicente MD PCP - General 04/16/[address] [place] [address] [address] [place] [address] documented as of this encounter
--- OUTSIDE RECORDS SUMMARY | 2022-03-11 11:30 | XMS_ITS | Encounter Summary ---
:1945 Author Organization [facility] [place] [address] Care Team Providers Name Role Phone Lovely Vicente MD Primary Care Provider Reason for Visit Auth/Cert Specialty Diagnoses / Procedures Referred By Contact Refer red To Contact Diagnoses Critical lower limb ischemia CELLULITIS RT FOOT Procedures EMERGENCY Referral ID Status Reason Start Date Expiration Date Visits Requ ested Visits Authorized [id number] 1 1 Encounter Details Date Type Department Care Team Description 08/04/2017 Office Visit Cardiology at [facility] Danette Maxwell Incisional pain; [facility] A, CUB REPORTER Ischemic cardiomyopathy; [facility] ASCVD (arteriosclerotic card iovascular disease); [place], [place] Systolic heart failure, unspecified hear t failure chronicity [id number] CARDIOLOGY [phone] [place], [place] [address] Social History Tobacco Use Types [...] in this encounter Progress Notes Danette Maxwell, CUB REPORTER - 08/04/2017 3:00 PM EST ID and [...] painful and 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 [...] MD [facility] DR T[address] [place], [place] [address] (Wo rk) 05/28/2022 Appointment Cardiology Zulma Dolan MD [facility] [place], [place] [address] (Wo rk) 05/28/2022 Laboratory Appointment Lab 05/28/2022 Office Visit Cardiology Zulma Dolan MD [facility] [place] [address] Liz Poole PA [facility] [place] [address] 06/10/2022 Office Visit Dermatology Laura Scherer MD [facility] DR TEJA [address]DERMAT [place], [place] [address] (Wo rk) documented as of [...] Daniele gutiérrez 08/04/2017 4:13 PM Danette Maxwell CUB REPORTER IMG DX ORDERABLES documented in this encounter Visit Diagnoses Diagnosis Incisional pain Disturbance of skin sensation Ischemic cardiomyopathy Other specified forms of chronic ischemi c heart disease ASCVD (arteriosclerotic cardiovascular d isease) Unspecified cardiovascular disease Systolic heart failure, unspecified hear t failure chronicity Incisional pain Disturbance of skin sensation documented in this encounter Care Teams Manager Credit Collections Relationship Specialty Start Date End Date Lovely Vicente MD PCP - General 04/16/[address] [place] [address] documented as of this encounter
--- OUTSIDE RECORDS SUMMARY | 2022-03-11 11:30 | XMS_ITS | Encounter Summary ---
:1945 [place] [address] Care Team Providers Name Role Phone Lovely Vicente MD Primary Care Provider Encounter Details Date Type Department Care Team Description 07/16/2017 Telephone Endocrinology at [facility] C Manuela Holliday, [facility] [place] [address] ENDOCRINOLOGY DEPT [phone] [place], [place] [address] (Wo rk) Social History [...] Nobles MD [facility] DR THOMAS [place], [place] [address] (Wo lissa) 05/28/2022 Appointment Cardiology Zulma Dolan MD [facility] Dr [address] [place] 0[address] (Wo rk) 05/28/2022 Laboratory Appointment Lab 05/28/2022 Office Visit Cardiology Zulma Dolan MD [facility] [place] [address] Liz Poole PA [facility] [place] [address] 06/10/2022 Office Visit Dermatology Laura Scherer MD [facility] DR TE[address] GR-[address]MAT [place], [place] [address] (Wo rk) documented as of this encounter Visit Diagnoses Not on filedocumented in this encounter Care Teams Qualitative Field Coordinator Relationship Specialty Start Date End Date Lovely Vicente MD PCP - General 04/16/[address] [place] [address] documented as of this encounter
--- OUTSIDE RECORDS SUMMARY | 2022-03-11 11:30 | XMS_ITS | Encounter Summary ---
:1945 Author Organization [facility] [place] [address] Care Team Providers Name Role Phone Lovely Vicente MD Primary Care Provider Encounter Details Date Type Department Care Team Description 07/29/2017 Transcribe Orders Laboratory Lovely Vicente MD [address] [address] [place], [place] [address] (Mikayla alcaraz) Social History Tobacco Use Types [...] Vitaliy Nobles MD [facility] DR [address]LYLE [place], [place] [address] (Wo rk) 05/28/2022 Appointment Cardiology Zulma Dolan MD [facility] [address] [place] [address] (Wo rk) 05/28/2022 Laboratory Appointment Lab 05/28/2022 Office Visit Cardiology Zulma Dolan MD [facility] [place] [address] Liz Poole PA [facility] [place] [address] 06/10/2022 Office Visit Dermatology Laura Scherer MD [facility] ER DR TEJA GR-DERMAT [place], [place] [address] (Wo rk) documented as of this encounter Visit Diagnoses Not on filedocumented in this encounter Care Teams Towel Distributor Relationship Specialty Start Date End Date Lovely Vicente MD PCP - General 04/16/[address] [place] [address] documented as of this encounter
--- OUTSIDE RECORDS SUMMARY | 2022-03-11 11:30 | XMS_ITS | Encounter Summary ---
:1945 [place] [address] Care Team Providers Name Role Phone Lovely Vicente MD Primary Care Provider Encounter Details Date Type Department Care Team Description 08/04/2017 Orders Only Cardiac Surgery Makayla Wilson TREE SPECIALIST [facility] [place] [address] CARDIAC SURGERY [phone] [place], [place] [address] (Wo rk) Social History Tobacco [...] MD [facility] ER DR CARLYLE SARAB[place] 0375 (Wo rk) 05/28/2022 Appointment Cardiology Zulma Dolan MD [facility] Dr [place], [place] [address] (Wo rk) 05/28/2022 Laboratory Appointment Lab 05/28/2022 Office Visit Cardiology Zulma Dolan [place] [facility] [place] [address] Liz Poole PA [facility] [place] [address] 06/10/2022 Office Visit Dermatology Laura Scherer MD [facility] ER DR [address]-DERMAT [place], [place] [address] (Wo rk) documented as of this encounter Visit Diagnoses Not on filedocumented in this encounter Care Teams Circulation Manager Relationship Specialty Start Date End Date Lovely Vicente MD PCP - General 04/16/[address] [place] [address] documented as of this encounter
--- OUTSIDE RECORDS SUMMARY | 2022-03-11 11:30 | XMS_ITS | Encounter Summary ---
:1945 Author Organization [place] [address] Care Team Providers Name Role Phone Lovely Vicente MD Primary Care Provider Encounter Details Date Type Department Care Team Description 07/24/2017 Telephone Vascular Surgery Melba Bob [facility] [place] [address] [facility] [phone] VASCULAR SURGERY [place], [place] 0[address] (Wo rk) Social History Tobacco [...] was discharged on Coumadin. ??He presented to [facility] on 07/20 with mottled toes on the [...] Nobles MD [facility] DR CARLYLE [place] [address] (Wo rk) 05/28/2022 Appointment Cardiology Zulma Dolan MD [facility] Dr [place] 0[address] (Wo rk) 05/28/2022 Laboratory Appointment Lab 05/28/2022 Office Visit Zulma Garrison MD [facility] [place] [address] Liz Poole PA [facility] [place] [address] 06/10/2022 Office Visit Dermatology Laura Scherer MD [facility] ER DR TEJA GR-DERMAT [place], [place] 0[address] (Wo rk) documented as of this encounter Visit Diagnoses Not on filedocumented in this encounter Care Teams Barrel Liner Relationship Specialty Start Date End Date Lovely Vicente MD PCP - General 04/16/[address] [place] [address] documented as of this encounter
--- OUTSIDE RECORDS SUMMARY | 2022-03-11 11:30 | XMS_ITS | Encounter Summary ---
:1945 Author Organization [facility] [place] [address] Care Team Providers Name Role Phone Lovely Vicente MD Primary Care Provider Reason for Visit Reason Onset Date Comments Other 07/22/2017 lovenox bridge Encounter Details Date Type Department Care Team Description 07/22/2017 Telephone Cardiology at [facility] Court Cadena RN Other (lovenox bridge) [place] [address] Social History Tobacco Use Types Packs/Day [...] 4:49 PM EST VAMSI Del Castillo, at [facility], called earlier today with a question re: lovenox bridge for this patient who was recently discharged from [facility] r/t a blood clot. Discharge note faxed to [facility] (fax# [phone], Ph#: [phone]) which contains instructions r/t lovenox bridge as follows: Anticoagulation: on lovenox bridge to therapeutic coumadin for AFib. Goal INR 2-3. At discharge INR=1.5. The lovenox injections can stop when INR >2, coumadin will continue indefinitely. documented in this encounter Plan of Treatment Upcoming Encounters Date Type Specialty Care Team Description 03/26/2022 Office Visit Cardiology Vitaliy Nobles MD [facility] DR TADEO [place], [place] [address] (Wo rk) 05/28/2022 Appointment Cardiology Zulma Dolan MD [facility] Dr [place], [place] [address] (Wo rk) 05/28/2022 Laboratory Appointment Lab 05/28/2022 Office Visit Cardiology Zulma Dolan MD [facility] [place] [address] Liz Poole PA [facility] [place] [address] 06/10/2022 Office Visit Dermatology Laura Scherer MD [facility] DR [address]-DERMAT [place], [place] [address] (Wo rk) documented as of this encounter Visit Diagnoses Not on filedocumented in this encounter Care Teams Terminal Clerk Relationship Specialty Start Date End Date Lovely Vicente MD PCP - General 04/16/[address] [place] [address] documented as of this encounter
--- OUTSIDE RECORDS SUMMARY | 2022-03-11 11:30 | XMS_ITS | Encounter Summary ---
:1945 Author Organization [facility] [place] [address] Care Team Providers Name Role Phone Lovely Vicente MD Primary Care Provider Reason for Visit Auth/Cert Specialty Diagnoses / Procedures Referred By Contact Refer red To Contact Diagnoses Critical lower limb ischemia CELLULITIS RT FOOT Procedures EMERGENCY Referral ID Status Reason Start Date Expiration Date Visits Requ ested Visits Authorized [id number] 1 1 Encounter Details Date Type Department Care Team Description 08/04/2017 Hospital Encounter XRay at [facility] Danette Maxwell Incisional pain [address] [place] [address] Dr Gomes, WINERY WORKER [facility] [address] CARDIOLOGY [place], [place] [address] Social History Tobacco Use Types [...] MD [facility] DR TADEO [place], [place] [address] (Wo rk) 05/28/2022 Appointment Cardiology Zulma Dolan MD [facility] Dr [place], [place] [address] (Wo rk) 05/28/2022 Laboratory Appointment Lab 05/28/2022 Office Visit Cardiology Zulma Dolan MD [facility] [place] [address] Liz Poole PA [facility] [place] [address] 06/10/2022 Office Visit Dermatology Laura Scherer MD [facility] ER DR TEJA GR-DERMAT [place], [place] 0[address] (Wo rk) documented as of [...] Daniele gutiérrez 08/04/2017 4:13 PM Danette Maxwell WINERY WORKER IMG DX ORDERABLES documented in this encounter Visit Diagnoses Diagnosis Incisional pain Disturbance of skin sensation documented in this encounter Care Teams Shipper And Receiving Relationship Specialty Start Date End Date Lovely Vicente MD PCP - General 04/16/[address] [place] [address] documented as of this encounter
--- OUTSIDE RECORDS SUMMARY | 2022-03-11 11:30 | XMS_ITS | Encounter Summary ---
:1945 Author Organization [place] [address] Care Team Providers Name Role Phone Lovely Vicente MD Primary Care Provider Encounter Details Date Type Department Care Team Description 08/03/2017 Telephone Pain Management at [facility] [place], [place] [address] Social History Tobacco Use Types Packs/Day [...] Management Center Preauthorization Request Patient: Don Fatima [id number] Fax received from [facility] requesting we obtain prior authorization for Lidocaine Patches prescribed by Barbra Soares APRN. RX insurance plan: [facility] insurance telephone: [phone] Patient ?? Diagnosis: right foot pain secondary to PVD and ischemia ?? Previous medications attempted: Tylenol, Tramadol, Dilaudid Authorization/Reference number: [id number], PBP Code 801 _x_ denied, provider and patient informed _x_ appeal initiated by provider, patient informed Angeles Rodrigez, RN documented in this encounter Plan of Treatment Upcoming Encounters Date Type Specialty Care Team Description 03/26/2022 Office Visit Cardiology Vitaliy Nobles MD [facility] CARDIOLOGY [place], [place] 0[address] (Wo rk) 05/28/2022 Appointment Cardiology Zulma Dolan MD [facility] [place], [place] [address] (Wo rk) 05/28/2022 Laboratory Appointment Lab 05/28/2022 Office Visit Cardiology Zulma Dolan MD [facility] [place] [address] Liz Poole PA [facility] [place] [address] 06/10/2022 Office Visit Dermatology Laura Scherer MD [facility] DR TEJA GR-DERMAT [place], [place] [address] (Wo rk) documented as of this encounter Visit Diagnoses Not on filedocumented in this encounter Care Teams Building Stonecutter Relationship Specialty Start Date End Date Lovely Vicente MD PCP - General 04/16/[address] [place] [address] documented as of this encounter
--- OUTSIDE RECORDS SUMMARY | 2022-03-11 11:30 | XMS_ITS | Encounter Summary ---
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 Leg Swelling HPI: Gregory Fatima is a 72 y.o. 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 Patient [...] SETUP performed by Manny Mcknight MD at [facility] OR ??? PRO CABG, ARTERIAL, SINGLE N/A 07/07/2017 @CABG, USING ARTERIAL GRAFT;SINGLE ARTERIAL GRAFT (WRVU 33.75) performed by Yuan Retana MD at [facility] OR ??? PRO CABG, ARTERY-VEIN, TWO N/A 07/07/2017 @CABG, TWO VENOUS GRAFTS & ARTERIAL GRAFT (WRVU 7.93) performed by Yuan Retana MD at [facility] OR ??? PRO COLONOSCOPY, REMFlash MOCK, SNARE 01/16/2014 COLONOSCOPY, POLYPECTOMY, REMOVAL LESION BY SNARE performed by Nohemi Jaimes MD at [facility] ENDOSCOPY ??? PRO ENDOSCOPY W/VIDEO-ASST VEIN HARVEST, CABG Right 07/07/2017 ENDOSCOPIC HARVEST VEIN(S) FOR CABG (WRVU 0.31) performed by Yuan Retana MD at [facility] OR ??? 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 Hank Zhang Vascular Surgery, PGY2 Pager #[phone] Associated attestation - Arik Clement MD - [...] MD [facility] DR TADEO [place], [place] [address] (Wo rk) 05/28/2022 Appointment Cardiology Zulma Dolan MD [facility] [place], [place] [address] (Wo rk) 05/28/2022 Laboratory Appointment Lab 05/28/2022 Office Visit Cardiology Zulma Dolan MD [facility] [place] [address] Liz Poole PA [facility] [place] [address] 06/10/2022 Office Visit Dermatology Laura Scherer MD [facility] DR TEJA [address]-DERMAT [place], [place] [address] (Wo rk) documented as [...] Component Value Ref Test Analysis Performed At [facility] Range Method Time Signature VB Text Department: Vascular Surgery Lab VASCUBASE Report Patient: [id number] (GREGORY FATIMA) CPT: 33348 ICD10: I82.541 Referring Physician: TAMIKO JIMÉNEZ ?? [...] Jiménez MD VASCULAR ORDERABLES Performing Organization Address City/[facility]/ZIP Code Phon e Number VASCUBASE POCT Glucose (07/29/2017 2:28 PM EST) P athologist Signature POC Glucose 128 65 - 199 [facility] mg/dL [facility] Comment: Supplemental ranges: <140 mg/dL before meals <180 mg/dL all other times of the day Specimen Anatomical Collection Method Collection Time Receive d Time (Source) Location / / Volume Laterality Blood specimen 07/29/2017 2:28 PM 018 2:28 (specimen) EST PM EST Tamiko Jiménez MD POINT OF CARE TEST ORDERABLE S Performing Organization Address [facility] [place] [address] (ABNORMAL) D-Dimer, Quantitative (07/29/2017 2:15 PM EST) [facility] [employer] Method Time Signature D-Dimer, Quant 1,699 (H) 0 - 500 [facility] FEU ng/ml [facility] Comment: The D-Dimer assay is used [...] EST Resulting Agency Comment Spec In Lab Authorizing Provider Result Mikaela Jiménez MD HEMATOLOGY ORDERABLES Performing Organization Address City/[facility] Phon e Number [address] (ABNORMAL) Differential, Automated (07/29/2017 2:15 PM EST) [facility] [employer] Method Time Signature Neutrophils % 82.5 % [facility] Neutr Abs (ANC) 10.21 (H) 1.70 - [facility] 6.10 [facility] x10(3)/[facility] LABORATORY Lymphocytes % 7.1 % [facility] Lymphocytes Abs 0.9 0.9 - 3.2 [facility] x10(3)/[facility] LABORATORY Monocytes % 6.5 % [facility] Monocyte Abs 0.8 0.3 - 0.9 [facility] x10(3)/[facility] LABORATORY Eosinophils % 2.7 % [facility] Eosinophils Abs 0.3 0.0 - 0.4 [facility] x10(3)/[facility] LABORATORY Basophils % 0.6 % [facility] Basophils Abs 0.1 0.0 - 0.1 [facility] x10(3)/[facility] LABORATORY Immature Gran % 0.60 % [facility] [...] Organization Address City/State/[place] [address] (ABNORMAL) Hemogram (07/29/2017 2:15 PM EST) Analysis Performed At Patho logist Time Signature WBC 12.4 (H) 4.0 - 9.5 [facility] x10(3)/[facility] LABORATORY RBC 4.17 (L) 4.58 - [facility] 5.54 [facility] x10(6)/[facility] LABORATORY Hemoglobin 12.1 (L) 13.7 - [place] DAVIS 16.5 gm/dL [facility] Hematocrit 38.1 (L) 40.5 - [place] 48.5 % [facility] MCV 91.4 82.9 - [facility] RYAN [address] [facility] LABORATORY MCH 29.0 27.5 - [place] OLIVASCK 32.1 pg [facility] MCHC 31.8 (L) 32.0 - [place] 35.7 gm/dL [facility] Platelets 204 145 - 357 [facility] x10(3)/[facility] LABORATORY RDWSD 50.5 (H) 36.0 - [facility] RYAN [address] [facility] LABORATORY RDWCV 15.3 (H) 11.4 - [facility] RYAN 13.8 % [facility] MPV 9.4 7.6 - 12.9 [facility] nRBC % Auto 0.0 % [facility] nRBC Abs Auto 0.000 0.000 - [place] RYAN 0.000 [facility] x10(3)/[facility] LABORATORY Specimen Anatomical Collection Method Collection Time Receive d Time (Source) Location / / Volume Laterality Blood specimen 07/29/2017 2:15 PM 018 2:36 (specimen) EST PM EST Resulting Agency Comment Spec In Lab Tamiko Jiménez MD HEMATOLOGY ORDERABLES Performing Organization Address City/State/[place] [address] (ABNORMAL) Prothrombin Time (07/29/2017 2:15 PM EST) P athologist Signature PT 24.4 (H) 11.8 - 14.0 [facility] LABORATORY INR 2.2 (H) 0.9 - 1.1 [facility] [...] Organization Address City/State/[place] [address] Arterial Duplex Leg, Unil (07/29/2017 11:50 AM EST) Component Value Ref Test Analysis Performed At [facility] Range Method Time Signature VB Text Department: Vascular Surgery Lab VASCUBASE Report Patient: [id number] (GREGORY FATIMA) CPT: 34078 ICD10: Z09;I97.610 Referring Physician: TAMIKO JIMÉNEZ ?? [...] Component Value Ref Test Analysis Performed At [facility] Range Method Time Signature VB Text Department: Vascular Surgery Lab VASCUBASE Report Patient: [id number] (GREGORY FATIMA) CPT: 56843 ICD10: I82.441 Referring Physician: TAMIKO JIMÉNEZ ?? [...] he calf. Notification: Marquis Pathak MD (pager #[phone]) was notif ied of the preliminary findings. [...] STAT documented in this encounter Care Teams Clinic Physician Relationship Specialty Start Date End Date Lovely iVcente MD PCP - General 04/16/[address] [place] [address] documented as of this encounter
--- OUTSIDE RECORDS SUMMARY | 2022-03-11 11:30 | XMS_ITS | Encounter Summary ---
:1945 Author Organization [facility] [place] [address] Care Team Providers Name Role Phone Lovely Vicente MD Primary Care Provider Reason for Visit Reason Comments Deep Vein Thrombosis Auth/Cert Specialty Diagnoses / Procedures Referred By Contact Refer red To Contact Diagnoses Critical lower limb ischemia CELLULITIS RT FOOT Procedures EMERGENCY Referral ID Status Reason Start Date Expiration Date Visits Requ ested Visits Authorized [id number] 1 1 Encounter Details Date Type Department Care Team Description 08/04/2017 Office Visit Vascular Surgery at [facility] itical lower limb [facility] ischemia [facility] [address] [place], [place] VASCULAR SURGERY [id number] [place] [address] [phone] Social History Tobacco Use Types Packs/Day Years [...] was discharged on Coumadin. ??He presented to [facility] on 07/20 with mottled toes on the [...] MD [facility] ER INA [place] [address] (Mikayla alcaraz) 05/28/2022 Appointment Cardiology Zulma Dolan MD [facility] er INA Joaquin 0375 (Mikayla alcaraz) 05/28/2022 Laboratory Appointment Lab 05/28/2022 Office Visit Cardiology Zulma Dolan MD [facility] [place] [address] Liz Poole PA [facility] [place] [address] 06/10/2022 Office Visit Dermatology Laura Scherer MD [facility] ER DR [address]MAT [place], [place] 0375 (Wo rk) documented as of this encounter Visit Diagnoses Diagnosis Critical lower limb ischemia Unspecified circulatory system disorder documented in this encounter Care Teams Pipe Layer Helper Relationship Specialty Start Date End Date Lovely Vicente MD PCP - General 04/16/[address] [place] [address] documented as of this encounter
--- OUTSIDE RECORDS SUMMARY | 2022-03-11 11:30 | XMS_ITS | Encounter Summary ---
:1945 [place] [address] Care Team Providers Name Role Phone Lovely Vicente MD Primary Care Provider Encounter Details Date Type Department Care Team Description 07/29/2017 Telephone Pain Aurelia Crawford MD [facility] [place] [address] PAIN CLINIC [phone] [place], [place] [address] (Wo rk) Social History Tobacco [...] MD [facility] DR TADEO [place], [place] [address] (Wo rk) 05/28/2022 Appointment Cardiology Zulma Dolan MD [facility] [place], [place] [address] (Wo rk) 05/28/2022 Laboratory Appointment Lab 05/28/2022 Office Visit Cardiology Zulma Dolan MD [facility] [place] [address] Liz Poole PA [facility] [address] 06/10/2022 Office Visit Dermatology Laura Scherer MD [facility] DR [address] RD-DERMAT [facility] [place], [place] [address] (Wo rk) documented as of this encounter Visit Diagnoses Not on filedocumented in this encounter Care Teams Street Light Servicer Supervisor Relationship Specialty Start Date End Date Lovely Vicente MD PCP - General 04/16/[address] [place] [address] documented as of this encounter
--- OUTSIDE RECORDS SUMMARY | 2022-03-11 11:30 | XMS_ITS | Encounter Summary ---
:1945 [place] [address] Care Team Providers Name Role Phone Lovely Vicente MD Primary Care Provider Encounter Details Date Type Department Care Team Description 07/29/2017 Hospital Encounter Vascular Lab at Critic monica Huber lower limb [facility] ROHIT [place] [phone] Social History Tobacco Use Types Packs/Day Years [...] Nobles MD [facility] CARDIOLOGY [place], [place] 0375 (Wo rk) 05/28/2022 Appointment Cardiology Zulma Dolan MD [facility] [place], [place] [address] (Wo rk) 05/28/2022 Laboratory Appointment Lab 05/28/2022 Office Visit Cardiology Zulma Dolan MD [facility] [place] [address] Liz Poole PA [facility] [place] [address] 06/10/2022 Office Visit Dermatology Laura Scherer MD [facility] DR TEJA GR-DERMAT [place], [place] 0[address] (Wo rk) documented as of this encounter Visit Diagnoses Diagnosis Critical lower limb ischemia Unspecified circulatory system disorder documented in this encounter Care Teams Dispensing Operator Relationship Specialty Start Date End Date Lovely Vicente MD PCP - General 04/16/[address] [place] [address] documented as of this encounter
--- OUTSIDE RECORDS SUMMARY | 2022-03-11 11:30 | XMS_ITS | Encounter Summary ---
:1945 [place] [address] Care Team Providers Name Role Phone Lovely Vicente MD Primary Care Provider Encounter Details Date Type Department Care Team Description 08/03/2017 Hospital Encounter Radiology Library at [place], Tommy Mijares [facility] [place] [address] VASCULAR SURGERY [phone] [place], [place] [address] (Wo rk) Social History Tobacco [...] MD [facility] DR TADEO [place], [place] [address] (Wo rk) 05/28/2022 Appointment Cardiology Zulma Dolan MD [facility] Dr [place], [place] [address] (Wo rk) 05/28/2022 Laboratory Appointment Lab 05/28/2022 Office Visit Cardiology Zulma Dolan MD [facility] [place] [address] Liz Poole PA [facility] [place] [address] 06/10/2022 Office Visit Dermatology Laura Scherer MD [facility] DR TEJA GR[address]DERMAT [place], [place] 0[address] (Wo rk) documented as [...] Time Received Time / Laterality Volume Narrative [facility] - 08/03/2017 6:03 PM EST This exam is for storage only and is aut o-finalizing. Arik Clement MD IMG FILM LIBRARY ORDERABLES Performing Organization Address City/State/ZIP Code Phon e Number [place], [place] documented in this encounter Visit Diagnoses Diagnosis Pain Generalized pain documented in this encounter Care Teams Treatment Supervisor Relationship Specialty Start Date End Date Lovely Vicente MD PCP - General 04/16/[address] [place] [address] documented as of this encounter
--- OUTSIDE RECORDS SUMMARY | 2022-03-11 11:30 | XMS_ITS | Encounter Summary ---
:1945 Author Organization [facility] [place] [address] Care Team Providers Name Role Phone Lovely Vicente MD Primary Care Provider Encounter Details Date Type Department Care Team Description 08/02/2017 Telephone Pain Management at [place], [place] [address] Social History Tobacco Use Types Packs/Day [...] Management Center Preauthorization Request Patient: Don Fatima [id number] Fax received from [facility] requesting we obtain prior authorization for Lidocaine patches prescribed by Barbra Soares APRN. RX insurance plan: [employer] insurance telephone: [phone] Patient Diagnosis: right foot pain secondary to PVD and ischemia Previous medications attempted: Tylenol, Tramadol, Dilaudid The following action was taken after discussion with the creative services specialist: _x_ pharmacy informed Authorized dosage or amount: 5% on patch on for 12 hours, then remove for 12 hours. Angeles Rodrigez, RN documented in this encounter Plan of Treatment Upcoming Encounters Date Type Specialty Care Team Description 03/26/2022 Office Visit Cardiology Vitaliy Nobles MD [facility] [address] TADE[address] [place], [place] [address] (Wo rk) 05/28/2022 Appointment Cardiology Zulma Dolan MD [facility] [place], [place] [address] (Wo rk) 05/28/2022 Laboratory Appointment Lab 05/28/2022 Office Visit Cardiology Zulma Dolan MD [facility] [place] [address] Liz Poole PA [facility] [place] [address] 06/10/2022 Office Visit Dermatology Laura Scherer MD [facility] DR TEJA [address]DERMAT [place], [place] [address] (Wo rk) documented as of this encounter Visit Diagnoses Not on filedocumented in this encounter Care Teams Geospatial Intelligence Analyst Relationship Specialty Start Date End Date Lovely Vicente MD PCP - General 04/16/[address] [place] [address] documented as of this encounter
--- OUTSIDE RECORDS SUMMARY | 2022-03-11 11:30 | XMS_ITS | Encounter Summary ---
:1945 [place] [address] Care Team Providers Name Role Phone Lovely Vicente MD Primary Care Provider Encounter Details Date Type Department Care Team Description 08/03/2017 Hospital Encounter Radiology Library at [place], Tommy Mijares [facility] [place] [facility] [place] [address] VASCULAR SURGERY [phone] [place], [place] [address] (Wo rk) Social History Tobacco [...] MD [facility] [address] TADE[address] [place], [place] [address] (Wo rk) 05/28/2022 Appointment Cardiology Zulma Dolan MD [facility] [address] [place], [place] [address] (Wo rk) 05/28/2022 Laboratory Appointment Lab 05/28/2022 Office Visit Cardiology Zulma Dolan MD [facility] [place] [address] Liz Poole PA [facility] [place] [address] 06/10/2022 Office Visit Dermatology Laura Scherer MD [facility] [address] TE[address] [place], [place] [address] (Wo rk) documented as of [...] Time Received Time / Laterality Volume Narrative [facility] - 08/03/2017 6:01 PM EST This exam is for storage only and is aut o-finalizing. Arik Clement MD IMG FILM LIBRARY ORDERABLES Performing Organization Address City/State/ZIP Code Phon e Number [place], [place] documented in this encounter Visit Diagnoses Diagnosis Pain Generalized pain documented in this encounter Care Teams Lens Finisher Relationship Specialty Start Date End Date Lovely Vicente MD PCP - General 04/16/[address] [place] [address] documented as of this encounter
--- OUTSIDE RECORDS SUMMARY | 2022-03-11 11:30 | XMS_ITS | Encounter Summary ---
:1945 [place] [address] Care Team Providers Name Role Phone Lovely Vicente MD Primary Care Provider Encounter Details Date Type Department Care Team Description 08/04/2017 Notes Only Cardiac Surgery Makayla Wilson HUMAN RESOURCES DEPARTMENT SUPERVISOR [facility] [place] [address] CARDIAC SURGERY [phone] [place], [place] [address] (Wo rk) Social History Tobacco [...] MD [facility] [address] TADE[address] [place], [place] [address] (Wo rk) 05/28/2022 Appointment Cardiology Zulma Dolan MD [facility] [place], [place] [address] (Wo rk) 05/28/2022 Laboratory Appointment Lab 05/28/2022 Office Visit Cardiology Zulma Dolan MD [facility] [place] [address] Liz Poole PA [facility] [place] [address] 06/10/2022 Office Visit Dermatology Laura Scherer MD [facility] DR [address]DERMAT [place], [place] [address] (Wo rk) documented as of this encounter Visit Diagnoses Not on filedocumented in this encounter Care Teams Networking Specialist Relationship Specialty Start Date End Date Lovely Vicente MD PCP - General 04/16/[address] [place] [address] documented as of this encounter
--- OUTSIDE RECORDS SUMMARY | 2022-03-11 11:30 | XMS_ITS | Encounter Summary ---
:1945 Author Organization [facility] [place] [address] Care Team Providers Name Role Phone Lovely Vicente MD Primary Care Provider Reason for Visit Auth/Cert Specialty Diagnoses / Procedures Referred By Contact Refer red To Contact Diagnoses Critical lower limb ischemia CELLULITIS RT FOOT Procedures EMERGENCY Referral ID Status Reason Start Date Expiration Date Visits Requ ested Visits Authorized [id number] 1 1 Encounter Details Date Type Department Care Team Description 08/04/2017 [facility] [place] thrombosis of [facility] [place] [phone] Social History Tobacco Use Types Packs/Day Years [...] MD [facility] [address] TADE[address] [place], [place] [address] (Wo rk) 05/28/2022 Appointment Cardiology Zulma Dolan MD [facility] [address] [place], [place] [address] (Wo rk) 05/28/2022 Laboratory Appointment Lab 05/28/2022 Office Visit Cardiology Zulma Dolan MD [facility] [place] [address] Liz Poole PA [facility] [place] [address] 06/10/2022 Office Visit Dermatology Laura Scherer MD [facility] DR TEJA GR[address]DERMAT [place], [place] [address] (Wo rk) documented as [...] [facility] Range Method Time Signature VB Text Department: Vascular Surgery Lab VASCUBASE Report Patient: [id number] (GREGORY HOANG) CPT: 04339 ICD10: I82.541 Referring Physician: TAMIKO HUTSON ?? [...] extremity documented in this encounter Care Teams Master Machinist Relationship Specialty Start Date End Date Lovely Vicente MD PCP - General 04/16/[address] [place] [id number] documented as of this encounter
--- OUTSIDE RECORDS SUMMARY | 2022-03-11 11:30 | XMS_ITS | Encounter Summary ---
:1945 Author Organization [facility] [place] [address] Care Team Providers Name Role Phone Lovely Vicente MD Primary Care Provider Encounter Details Date Type Department Care Team Description 07/29/2017 Transcribe Orders Laboratory Lovely Vicente MD [address] [address] [place], [place] [address] (Mikayla alcaraz) Social History Tobacco Use Types [...] Cardiology Vitaliy Nobles MD [facility] DR [place]LE [place], [place] [address] (Wo rk) 05/28/2022 Appointment Cardiology Zulma Dolan MD [facility] [address] [place] [address] (Wo rk) 05/28/2022 Laboratory Appointment Lab 05/28/2022 Office Visit Cardiology Zulma Dolan MD [facility] [place] [address] Liz Poole PA [facility] [place] [address] 06/10/2022 Office Visit Dermatology Laura Scherer MD [facility] ER [address] TEJA [address]DERMAT [place], [place] [address] (Wo rk) documented as of this encounter Visit Diagnoses Not on filedocumented in this encounter Care Teams Household Coordinator Relationship Specialty Start Date End Date Lovely Vicente MD PCP - General 04/16/[address] [place] [address] documented as of this encounter
--- OUTSIDE RECORDS SUMMARY | 2022-03-11 11:30 | XMS_ITS | Encounter Summary ---
:1945 Author Organization [facility] Address [address] [place] [address] Care Team Providers Name Role Phone Lovely Vicente MD Primary Care Provider Encounter Details Date Type Department Care Team Description 07/29/2017 Transcribe Orders Laboratory Lovely Vicente, Coronary artery rupture; [facility] Ischemic cardiomyopathy; [facility] [address] Atherosclerosis of [place] co ronary artery, angina presence unspecified, unspecified whether [place] or transplanted heart; [place], [place] [address] Essential hypertension, malignant; [address] [place], [place] 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, unspecified assisted insulin use status [phone] Social History Tobacco Use Types Packs/Day Years [...] [facility] [address]ADE[address] [place], [place] [address] (Wo rk) 05/28/2022 Appointment Cardiology Zulma Dolan MD [facility] [place], [place] [address] (Wo rk) 05/28/2022 Laboratory Appointment Lab 05/28/2022 Office Visit Cardiology Zulma Dolan MD [facility] [place] [address] Liz Poole PA [facility] [place] [address] 06/10/2022 Office Visit Dermatology Laura Scherer MD [facility] DR [address]-DERMAT [place], [place] [address] (Wo rk) Scheduled Orders Name Type Priority Associated Diagnoses Order S chedule Lab Use Only, Fax Lab Routine Coronary arter y rupture Expected: 07/29/2017 Request Ischemic cardiom yopathy (Approximate), Atherosclerosis of [place] Ex jose: 07/29/2018 coronary artery, angina presence unspecified, unspecified whether [place] or transplanted heart Essential hypertension, malignant documented as of this encounter Results Uric acid (08/04/2017 12:55 PM EST) P athologist Signature Uric Acid 7.1 3.5 - 8.5 [facility]dL [facility] Specimen Anatomical Collection Method Collection Time Receive d Time (Source) Location / / Volume Laterality Blood specimen 08/04/2017 12:55 8 1:01 (specimen) PM EST PM EST Resulting Agency Comment Spec In Lab Lovely Vicente MD CHEMISTRY ORDERABLES Performing Organization Address City/State/[place] [address] (ABNORMAL) Hemogram (08/04/2017 12:55 PM EST) Analysis Performed At Patho logist Time Signature WBC 15.8 (H) 4.0 - 9.5 [facility] R[facility]AN x10(3)/[facility] LABORATORY RBC 3.48 (L) 4.58 - [place] RYAN 5.54 [facility] x10(6)/[facility] LABORATORY Hemoglobin 9.9 (L) 13.7 - [facility] 16.5 gm/dL [facility] Hematocrit 31.4 (L) 40.5 - [place] ZHAORYAN 48.5 % [facility] MCV 90.2 82.9 - [facility] 93.1 [facility] LABORATORY MCH 28.4 27.5 - [place] RYAN 32.1 pg [facility] MCHC 31.5 (L) 32.0 - [place] RYAN 35.7 gm/dL [facility] Platelets 310 145 - 357 [facility] x10(3)/[facility] LABORATORY RDWSD 51.8 (H) 36.0 - [facility] 45.0 [facility] LABORATORY RDWCV 15.8 (H) 11.4 - [facility] 13.8 % [facility] MPV 8.9 7.6 - 12.9 [facility] LABORATORY nRBC % Auto 0.0 % [facility] LABOR[facility]ORY nRBC Abs Auto 0.000 0.000 - [facility] 0.000 [facility] x10(3)/[facility] LABORATORY Specimen Anatomical Collection Method Collection Time Receive d Time (Source) Location / / Volume Laterality Blood specimen 08/04/2017 12:55 8 1:01 (specimen) PM EST PM EST Resulting Agency Comment Spec In Lab Lovely Vicente MD HEMATOLOGY ORDERABLES Performing Organization Address City/State/[place] [address] (ABNORMAL) Comprehensive metabolic panel (non-fasting) (08/04/2017 12:55 PM EST) P athologist Signature Glucose Lvl 208 (H) 65 - 199 [facility] mg/dL [facility] Comment: Diabetes: >=200 mg/dL plus symp toms BUN 32 (H) 10 - 20 mg/dL [facility] Creatinine 1.58 (H) 0.80 [...] Total Bilirubin 0.4 0.2 - 1.3 mg/dL [facility] LABOR[facility]ORY Estimated GFR 43 (L) >=60 [facility] LAB[facility] Comment: The reported eGFR should be multiplied b y 1.2 for patients. The MDRD is not an appropriate measure o f renal function for patients with body mass extremes or in patients with acute kidney failure. http://Preventes.fr.HiFiKiddo/DHnkdep http://Preventes.fr.HiFiKiddo/DHMCnkf Specimen Anatomical Collection Method Collection Time Receive d Time (Source) Location / / Volume Laterality Blood specimen 08/04/2017 12:55 8 1:01 (specimen) PM EST PM EST Resulting Agency Comment Spec In Lab Lovely Vicente MD CHEMISTRY ORDERABLES Performing Organization Address City/State/[place] [address] (ABNORMAL) Hemoglobin A1c (08/04/2017 12:55 PM EST) Analysis Performed At Patho logist Time Signature Hemoglobin A1C 6.2 (H) 4.3 - 5.6 [facility]ORY Comment: Reference Range: 4.3 - 5.6% [...] Mellitus, Diabetes Care 2013; 36: Suppl. 1, S67-94 Est Avg Gluc See note mg/dL [facility] Comment: Estimated Average Glucose [...] into estimated average glucose values. ??Diabetes Care 2008:31(8):2508-0727. Specimen Anatomical Collection Method Collection Time Receive d Time (Source) Location / / Volume Laterality Blood specimen 08/04/2017 12:55 8 1:01 (specimen) PM EST PM EST Resulting Agency Comment Spec In Lab Lovely Vicente MD CHEMISTRY ORDERABLES Performing Organization Address City/[facility]/[place] [address] (ABNORMAL) Prothrombin Time (08/04/2017 12:55 PM EST) P athologist Signature PT 35.4 (H) 11.8 - 14.0 [facility] LABORATORY INR 3.5 (H) 0.9 - [...] MD HEMATOLOGY ORDERABLES Performing Organization Address City/[facility] [place] [place] [address] documented in this encounter Visit Diagnoses Diagnosis Coronary artery rupture Acute myocardial infarction, unspecified site, episode of care unspecified Ischemic cardiomyopathy Other specified forms of chronic ischemi c heart disease Atherosclerosis of [place] coronary arter y, angina presence unspecified, unspecified whether [place] or transplanted heart Essential hypertension, malignant Diabetes mellitus due to underlying cond ition with diabetic nephropathy, unspecified long term care social worker insulin use status documented in this encounter Care Teams Bakery Manager Relationship Specialty Start Date End Date Lovely Vicente MD PCP - General 04/16/[address] [place] [address] documented as of this encounter
--- OUTSIDE RECORDS SUMMARY | 2022-03-11 11:30 | XMS_ITS | Encounter Summary ---
:1945 Author Organization [facility] [place] [address] Care Team Providers Name Role Phone Lovely Vicente MD Primary Care Provider Reason for Visit Reason Comments Follow-up Encounter Details Date Type Department Care Team Description 07/29/2017 Office Visit Cardiac Surgery at [facility] Yuan Retana MD S/P CABG x 3 [facility] [place] [address] CARDIOTHORACIC SURGERY [phone] [place], [place] [address] (Wo rk) Social History Tobacco [...] evaluation by vascular surgery. Yuan Retana MD [phone] documented in this encounter Plan of Treatment Upcoming Encounters Date Type Specialty Care Team Description 03/26/2022 Office Visit Cardiology Vitaliy Nobles MD [facility] DR [place], [place] [address] (Wo rk) 05/28/2022 Appointment Cardiology Zulma Dolan MD [facility] [address] [place] [address] (Wo rk) 05/28/2022 Laboratory Appointment Lab 05/28/2022 Office Visit Zulma Garrison MD [facility] [place] [address] Liz Poole PA [facility] [place] [address] 06/10/2022 Office Visit Dermatology Laura Scherer MD [facility] ER DR TEJA [address]DERMAT [place], [place] [address] (Wo rk) documented as of this encounter Visit Diagnoses Diagnosis S/P CABG x 3 Postsurgical aortocoronary bypass status documented in this encounter Care Teams Supervisor Dry Cell Assembly Relationship Specialty Start Date End Date Lovely Vicente MD PCP - General 04/16/15 [facility] [address] [place] [address] documented as of this encounter
--- OUTSIDE RECORDS SUMMARY | 2022-03-11 11:30 | XMS_ITS | Encounter Summary ---
:1945 Author Organization [facility] Address [facility] [place] [address] Care Team Providers Name Role Phone Lovely Vicente MD Primary Care Provider Reason for Visit Auth/Cert Specialty Diagnoses / Procedures Referred By Contact Refer red To Contact Diagnoses Critical lower limb ischemia CELLULITIS RT FOOT Procedures EMERGENCY Referral ID Status Reason Start Date Expiration Date Visits Requ ested Visits Authorized [id number] 1 1 Encounter Details Date Type Department Care Team Description 08/04/2017 Laboratory Lab 3L [place] Cardiomyopathy, unspecified type; Appointment [facility] Systolic congestive heart failure, unspecified congestive heart failure chronicity; Hospital Coronary artery rupture; [facility] Ischemic cardiomyopathy; Drive Atherosclerosis of [place] co ronary artery, angina presence unspecified, unspecified whether [place] or transplanted heart; [place], [place] Essential hyper tension, malignant; [id number] 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, unspecified long term care social worker insulin use status [phone] Social History Tobacco Use Types Packs/Day Years [...] Nobles MD [facility] ER CARDIOLOGY [place], [place] [address] (Wo rk) 05/28/2022 Appointment Cardiology Zulma Dolan MD [facility] [place], [place] [address] (Wo rk) 05/28/2022 Laboratory Appointment Lab 05/28/2022 Office Visit Cardiology Zulma Dolan MD [facility] [place] [address] Liz Poole PA [facility] [place] [address] 06/10/2022 Office Visit Dermatology Laura Scherer MD [facility] [address]DERMAT OLOGY [place], [place] [address] ( rk) documented as of this encounter Procedures Procedure Name Priority Date/Time Associated Diagnosis Comme nts HEMOGRAM Routine 08/04/2017 12:55 Essential Results for this PM EST hypertension, procedure are in malignant the results section. PROTHROMBIN TIME Routine 08/04/2017 12:55 Coronary artery Resu lts for this PM EST rupture procedure are in Ischemic the results cardiomyopathy section. Atherosclerosis of [place] coronary artery, angina presence unspecified, unspecified whether [place] or transplanted heart URIC ACID Routine 08/04/2017 [...] with the results diabetic section. nephropathy, unspecified long term care social worker insulin use status Essential hypertension, malignant COMPREHENSIVE Routine 08/04/2017 12:55 Essential Results fo r this METABOLIC PANEL PM EST hypertension, procedure a re in (NON-FASTING) malignant the results section. documented in this encounter Results Uric acid (08/04/2017 12:55 PM EST) P athologist Signature Uric Acid 7.1 3.5 - 8.5 [facility] mg/dL [facility] Specimen Anatomical Collection Method Collection Time Receive d Time (Source) Location / / Volume Laterality Blood specimen 08/04/2017 12:55 8 1:01 (specimen) PM EST PM EST Resulting Agency Comment Spec In Lab Lovely Vicente MD CHEMISTRY ORDERABLES Performing Organization Address City/State/[place] [address] (ABNORMAL) Hemogram (08/04/2017 12:55 PM EST) Analysis Performed At Patho logist Time Signature WBC 15.8 (H) 4.0 - 9.5 [place] [facility] x10(3)/[facility] LABORATORY RBC 3.48 (L) 4.58 - [facility] 5.54 [facility] x10(6)/[facility] LABORATORY Hemoglobin 9.9 (L) 13.7 - [place] 16.5 gm/dL [facility] Hematocrit 31.4 (L) 40.5 - [place] 48.5 % [facility] MCV 90.2 82.9 - [facility] 93.1 [facility] LABORATORY MCH 28.4 27.5 - [place] 32.1 pg [facility] MCHC 31.5 (L) 32.0 - [place] 35.7 gm/dL [facility] Platelets 310 145 - 357 [facility] x10(3)/[facility] LABORATORY RDWSD 51.8 (H) 36.0 - [employer] 45.0 [facility] LABORATORY RDWCV 15.8 (H) 11.4 - [place] 13.8 % [facility] LABORATORY MPV 8.9 7.6 - 12.9 [facility] LABORATORY nRBC % Auto 0.0 % [facility] LABOR[facility]ORY nRBC Abs Auto 0.000 0.000 - [employer] 0.000 [facility] x10(3)/[facility] LABORATORY Specimen Anatomical Collection Method Collection Time Receive d Time (Source) Location / / Volume Laterality Blood specimen 08/04/2017 12:55 8 1:01 (specimen) PM EST PM EST Resulting Agency Comment Spec In Lab Lovely Vicente MD HEMATOLOGY ORDERABLES Performing Organization Address City/State/[place] [address] (ABNORMAL) Comprehensive metabolic panel (non-fasting) (08/04/2017 12:55 PM EST) P athologist Signature Glucose Lvl 208 (H) 65 - 199 [facility] mg/dL [facility] [...] Total Protein 6.9 6.1 - 8.0 gm/dL [facility] Albumin 3.4 3.2 - 5.2 gm/dL [facility] AST 20 0 - 39 unit/L [facility] ALT 21 0 - 55 unit/L [facility] Alk Phos 93 40 - 120 unit/L [facility] Total Bilirubin 0.4 0.2 - 1.3 mg/dL [facility] Estimated GFR 43 (L) >=60 [place] [facility] Comment: The reported eGFR should be multiplied b y 1.2 for patients. The MDRD is not an appropriate measure o f renal function for patients with body mass extremes or in patients with acute kidney failure. http://[employer]/DHnkdep http://[employer]/DHMCnkf Specimen Anatomical Collection Method Collection Time Receive d Time (Source) Location / / Volume Laterality Blood specimen 08/04/2017 12:55 8 1:01 (specimen) PM EST PM EST Resulting Agency Comment Spec In Lab Lovely Vicente MD CHEMISTRY ORDERABLES Performing Organization Address City/State/ZIP Code Phon e Number [place] [id number] [address] (ABNORMAL) Hemoglobin A1c (08/04/2017 12:55 PM EST) Analysis Performed At Patho logist Time Signature Hemoglobin A1C 6.2 (H) 4.3 - 5.6 [facility] Comment: Reference Range: 4.3 - [...] S67-65 Est Avg Gluc See note mg/dL [facility] Comment: Estimated Average Glucose [...] with hemoglobinopathies. Additional resources are available on [facility] ADA website. Macario HAMMOND, Ruthann J, Deysi R, et al. ??Tr anslating the A1C assay into estimated average glucose values. ??Diabetes Care 2008:31(8):0680-2942. Specimen Anatomical Collection Method Collection Time Receive d Time (Source) Location / / Volume Laterality Blood specimen 08/04/2017 12:55 8 1:01 (specimen) PM EST PM EST Resulting Agency Comment Spec In Lab Lovely Vicente MD CHEMISTRY ORDERABLES Performing Organization Address City/State/[place] [address] (ABNORMAL) Prothrombin Time (08/04/2017 12:55 PM EST) P athologist Signature PT 35.4 (H) 11.8 - 14.0 [facility] LABORATORY INR 3.5 (H) 0.9 [...] Organization Address City/State/[place] [address] (ABNORMAL) pro-Brain Natriuretic Peptide (08/04/2017 12:55 PM EST) P athologist Signature ProBNP 3,133 (H) <=125 [facility] pg/mL [facility] Specimen Anatomical Collection Method Collection Time Receive d Time (Source) Location / / Volume Laterality Blood specimen 08/04/2017 12:55 8 1:01 (specimen) PM EST PM EST Resulting Agency Comment Spec In Lab Danette Maxwell APRN CHEMISTRY ORDERABLES Performing Organization Address City/State/[place] [address] documented in this encounter Visit Diagnoses Diagnosis Cardiomyopathy, unspecified type Systolic congestive heart failure, unspe cified congestive heart failure chronicity Coronary artery rupture Acute myocardial infarction, unspecified site, episode of care unspecified Ischemic cardiomyopathy Other specified forms of chronic ischemi c heart disease Atherosclerosis of [place] coronary arter y, angina presence unspecified, unspecified whether [place] or transplanted heart Essential hypertension, malignant Diabetes mellitus due to underlying cond ition with diabetic nephropathy, unspecified long term care social worker insulin use status documented in this encounter Care Teams Merchandise Flow Associate Relationship Specialty Start Date End Date Lovely Vicente MD PCP - General 04/16/[address] [place] [address] documented as of this encounter
--- OUTSIDE RECORDS SUMMARY | 2022-03-11 11:31 | XMS_ITS | Encounter Summary ---
:1945 [place] [address] Care Team Providers Name Role Phone Lovely Vicente MD Primary Care Provider Reason for Visit Reason Onset Date Comments Questions 07/16/2017 fluid retention Encounter Details Date Type Department Care Team Description 07/16/2017 Telephone Cardiology at [facility] Martha Comer, Questions ([facility] RN retention ) [place] [address] Social History Tobacco Use Types Packs/Day [...] the direct number to the HF team ([phone]). She is aware of his appt with MANAGER UTILIZATION MANAGEMENT Hans on 07/21/17 and the need for labs prior to that visit. verbalized good understanding of the current POC. documented in this encounter Plan of Treatment Upcoming Encounters Date Type Specialty Care Team Description 03/26/2022 Office Visit Cardiology Vitaliy Nobles MD [facility] [address] [place], [place] [address] (Wo rk) 05/28/2022 Appointment Cardiology Zulma Dolan MD [facility] [place], [place] [address] (Wo rk) 05/28/2022 Laboratory Appointment Lab 05/28/2022 Office Visit Cardiology Zulma Dolan MD [facility] [place] [address] Liz Poole PA [facility] [place] [address] 06/10/2022 Office Visit Dermatology Laura Scherer MD [facility] [address]-DERMAT OLOGY [place], [place] [address] (Wo rk) documented as of this encounter Visit Diagnoses Not on filedocumented in this encounter Care Teams Bulk Filler Relationship Specialty Start Date End Date Lovely Vicente MD PCP - General 04/16/[address] [place] [address] documented as of this encounter
--- OUTSIDE RECORDS SUMMARY | 2022-03-11 11:32 | XMS_ITS | Encounter Summary ---
:1945 Author Organization [place] [address] Care Team Providers Name Role Phone Lovely Vicente MD Primary Care Provider Encounter Details Date Type Department Care Team Description 07/08/2017 Orders Only Cardiology [facility] [place] [address] Social History Tobacco Use Types Packs/Day [...] Nobles MD [facility] [address], [place] [address] (Wo rk) 05/28/2022 Appointment Cardiology Zulma Dolan MD [facility] [address] [place] [address] (Wo rk) 05/28/2022 Laboratory Appointment Lab 05/28/2022 Office Visit Cardiology Zulma Dolan MD [facility] [place] [address] Liz Poole PA [facility] [place] [address] 06/10/2022 Office Visit Dermatology Laura Scherer MD [facility] ER DR [address]-DERMAT OLOGY [place], [place] [address] (Wo rk) documented as of this encounter Procedures Procedure Name Priority Date/Time Associated Diagnosis Comme nts TRANSESOPHAGEAL Routine 07/08/2017 Results for this ECHOCARDIOGRAM (AVELINO) procedu re are in the results section. documented in this encounter Results Transesophageal Echocardiogram (AVELINO) (07/08/2017) Specimen (Source) Anatomical Location Collection Method / Collectio n Time Received Time / Laterality Volume 07/08/2017 Narrative [facility] - 07/08/2017 12:25 PM ES T Procedure: ?Transesophageal Echocardiogram Patient: ?NATALYA Mccollum ? (Age): 1945(72y) Med Rec#: ? [id number] ?Sex: ?M ? Site Loc: ? Ht / Wt: ??(cm)/ (kg) ? Pt. Loc: ? Study Date: ?? 07/07/2017 ?Pt. Type: Tape: ? Referring: Yuan Retana Reading: Yifan Perez MD ([id number]) Performing: Yifan Perez MD ([id number]) Diagnosis: SUMMARY: 1. Intraoperative AVELINO performed at [facility] of Dr. Mike for the diagnosis and evaluation of hemodynamics , overall cardiac function, and valvular pathologies as indicated. AVELINO jackelyn campo was passed atraumatically after induction and removed [...] ? Mid-Inferior ?Hypokinetic ? Mid-Inferoseptal ?Hypokinetic ? [place]-Septal ? Hypokinetic ? [place]-Anterior ? Hypokinetic ? [place]-Lateral ?Hypokinetic ? [place]-Inferior ? Hypokinetic ? [place]-Tip ?Not Seen ? This report has been electronically sign ed by: _ Yifan Perez MD ? 07/08/2017 12 :25:18 Images reviewed and interpretation verif ied [facility] Procedure Note Yifan Perez MD - 07/08/2017Formatt ing of this note might be different from the original. Procedure: Transesophageal Echocardiogra m Patient: NATALYA MCBRIDE(Age): [birth year]72y) Med Rec#: [id number] Sex: M Site Loc: Ht / Wt: (cm)/ (kg) Pt. Loc: Study Date: 07/07/2017 Pt. Type: Tape: Referring: Yuan Retana Reading: Yifan Perez MD ([id number]) Performing: Yifan Perez MD ([id number]) Diagnosis: SUMMARY: 1. Intraoperative AVELINO [facility] Mike for the diagnosis [...] Hypokinetic Mid-Posterolateral Hypokinetic Mid-Inferior Hypokinetic Mid-Inferoseptal Hypokinetic [place]-Septal Hypokinetic [place]-Anterior Hypokinetic [place]-Lateral Hypokinetic [place]-Inferior Hypokinetic [place]-Tip Not Seen This report has been electronically sign ed by: _ Yifan Perez MD 07/08/2017 12:25:18 Images reviewed and interpretation elvie hwang [facility] Unknown ECHO ORDERABLES Performing Organization Address City/State/ZIP Code Phon e Number [facility] documented in this encounter Visit Diagnoses Not on filedocumented in this encounter Care Teams Burnisher And Bumper Relationship Specialty Start Date End Date Lovely Vicente MD PCP - General 04/16/[address] [place] [address] documented as of this encounter
--- OUTSIDE RECORDS SUMMARY | 2022-03-11 11:32 | XMS_ITS | Encounter Summary ---
:1945 Author Organization [facility] [place] [address] Care Team Providers Name Role Phone Lovely Vicente MD Primary Care Provider Reason for Referral Consultation (Routine) - Closed Specialty Diagnoses / Referred By Contact Referred To Contact Procedures Cardiac Rehabilitation Diagnoses S/P CABG x 3 Yuan Webber, Cardiac Rehab, [address] [place] CARDIOTHORACIC [address] [place] [address] Referral ID Status Reason Start Date Expiration Date Visits V isits Requested Authorized [id number] Closed Consult, 07/14/2017 01/10/2018 36 36 Test & Treat Reason for Visit Auth/Cert Specialty Diagnoses / Procedures Referred By Contact Refer red To Contact Diagnoses STEMI (ST elevation myocardial infarction) NSTEMI STEMI Procedures CARDIAC CATHETERIZATION NAYE IPI Referral ID Status Reason Start Date Expiration Date Visits Requ ested Visits Authorized [id number] 1 1 Encounter Details Date Type Department Care Team Description 07/05/2017 - Hospital Encounter Cardiac Special Daphne Shahid MD [facility] [place] [address] Non-ST elevation myocardial infarction ( NSTEMI); 07/14/2017 Care Unit Yuan Preciado MD [facility] [place] [address] S/P CABG x 3 [place] [id number] Social History Tobacco Use Types Packs/Day Years [...] Patient Age: 72 y.o. Birthdate: 1945 Language: Cape Verdean Race: White Ethnicity: Not nor Admit Date: [...] , @ 1:20p Patient to follow-up with Tube Buffer/heart failure team in one week. An appointment will be made for you. You may call [phone] Patient to follow-up with Cardiac Surgery, Dr. Yuan Webber, in ~ 4 weeks with CXR, EKG. Inpatient Provider Contact Information: [facility] Section of Cardiac Surgery [facility] [place] [address] FAX [phone] Discharge Diagnoses (Hospital Problems) Primary Diagnoses: CAD [...] SETUP performed by Manny Mcknight MD at [facility] MAIN OR ??? PRO CABG, ARTERIAL, SINGLE N/A 07/07/2017 @CABG, USING ARTERIAL GRAFT;SINGLE ARTERIAL GRAFT (WRVU 33.75) performed by Yuan Webber MD at [facility] MAIN OR ??? PRO CABG, ARTERY-VEIN, TWO N/A 07/07/2017 @CABG, TWO VENOUS GRAFTS & ARTERIAL GRAFT (WRVU 7.93) performed by Yuan Webber MD at [facility] MAIN OR ??? PRO COLONOSCOPY, REMV LESN, SNARE 01/16/2014 COLONOSCOPY, POLYPECTOMY, REMOVAL LESION BY SNARE performed by Nohemi Jaimes MD at [facility] ENDOSCOPY ??? PRO ENDOSCOPY W/VIDEO-ASST VEIN HARVEST, CABG Right 07/07/2017 ENDOSCOPIC HARVEST VEIN(S) FOR CABG (WRVU 0.31) performed by Yuan Webber MD at [facility] MAIN OR ??? PRO THYROIDECTOMY 03/28/2013 THYROIDECTOMY, TOTAL OR COMPLETE performed by Manny Mcknight MD at [facility] MAIN OR Prior To Admission Medications Prescriptions Prior to Admission Medication Sig Dispense Refill Last Dose ??? levothyroxine (SYNTHROID) 175 mcg Tablet Take 1 tablet by mouth daily. 90 tablet 3 07/05/2017 [id number] ??? ascorbic acid, vitamin C, (VITAMIN C) [...] hospital and ruled infor non-ST segment elevation [place]. This almost certainly represents the residual of [...] course, he was taken emergently to the warehouse laborer for an ongoing STEMI. An IABP [...] not take or discontinue any prescription or txrh-ipp-rfgfdco medications without asking your doctor or pharmacist [...] day to have your insulin doses adjusted. [facility] Endocrine clinic office Discharge Instructions: Call your doctor if: You have a fever of greater than 101 degrees, shaking chills, if you develop redness or drainage from your incision sites, or if you have questions. Please call your surgeon's office if you have any discharge or drainage from your chest incision. Your surgeon, Dr. Yaun Webber and/or the Cardiac Surgery Physician Assistant Department Manager Team may be reached at . [...] Dr. Yuan Webber. You may use a [place] Track or treadmill but avoid any pulling [...] friends, go to a movie, go to zoroastrianism, etc. Heavy activities: No hunting, skiing, jogging, snow shoveling, snowmobiling, lawn mowing, swimming, golf or tennis until after your return appointment with the surgeon. Do not ride motorcycles, Retrotope's tractors or horses. Avoid the use of [...] should resume a low fat, low cholesterol, [place] Heart Association Diet/Diabetic diet. Driving: No driving [...] , @ 1:20p Patient to follow-up with Tube Buffer/heart failure team in one week. Appointment will be made for you. You may call [phone] Patient to follow-up with Cardiac Surgery, Dr. Yuan Webber, in ~ 4 weeks with CXR, EKG. Cardiac Rehabilitation: Gregory Hoang was seen today regarding participation in the outpatient Phase 2 Cardiac Rehabilitation at [facility]. The patient agrees to a referral to this program. The referral will be sent at discharge and the patient should be contacted by the Program within 1- 2 weeks from discharge. ?? Future Appointments and Orders Future Appointments Provider Department Dept Phone 09/07/2017 3:00 PM LAB, THREE L Lab 3L [facility] [phone] 09/07/2017 4:00 PM Luz Prescott MD Endocrinology at [place] [phone] Future Orders Complete By Expires EKG 12 Lead [EKG1 Custom] 08/14/2017 02/13/2018 Process Instructions: Scheduling Instructions: Questions: Which location will this be performed?: [place] Is a rhythm strip needed?: No If EKG Reason is Pre-op Evaluation, indicate diagnosis for surgery.: XR Chest PA & Lateral (Generic) [[id number] Custom] 08/14/2017 02/13/2018 Process Instructions: Scheduling Instructions: Questions: Where will study be performed?: [place] [facility] Portable exam?: Reason for exam and clinical history: CABG x 3 Other pertinent information: Stat read required?: Date of injury if applicable: Requested Time: Referral to Cardiac Rehab [HQV948 Custom] As directed Process Instructions: If no progress note charted, please enter Clinical details in comments. Scheduling Instructions: Questions: My question or request is: s/p CABG. Cardiac rehab at [facility] Referral to Home Health - at DISCHARGE [XKR7066 CPT(R)] As directed Process Instructions: Scheduling Instructions: Comments: DOCUMENTATION FOR VNA SERVICES (INCLUDING THOSE PATIENTS WITH MEDICARE COVERAGE REQUIRING HOME VNA SERVICES AND/OR HOSPICE SERVICES) PATIENT'S LOCATION: Gregory Hoang [address] [place] [address] [place] [id number] (home) Telephone Information: Residence Director's Name: self In discussion with the attending physician, it is certified that this patient is under their care and that they, or a Nurse Practitioner, or Physician Assistant Department Manager who is working directly with them, [...] [facility] ([facility] [place] [facility] in [place]) PHONE: [phone] FAX: [phone] RN orders: Cardiopulmonary assessment, incisional assessment, assess vital signs, assessment of rehab progress, medication management and effectiveness, home safety evaluation. Please draw INR if indicated and send result to:Dr Vicente [phone] PT ORDERS: Continue rehab for endurance, gait stability and strength with mobility and transfers. Home safety evaluation. Home exercise program if appropriate. Start of Care Date:24-48 hours after discharge SPECIAL INSTRUCTIONS: For any follow up questions, needs, or issues please call the Cardiac Surgery Office at [phone] FOR MEDICARE ONLY: (please delete this section [...] AFTER 07/17/2017 Signed: Martha Teague APRN [facility] Section of Cardiac Surgery [facility] [place] [address] FAX [phone] Date: 07/14/2017 CC: MD Ivania Cr Betsy, PA [address] [place] [phone] documented in this encounter Discharge Instructions Discharge [...] day to have your insulin doses adjusted. [facility] Endocrine clinic office [...] not take or discontinue any prescription or vgeg-brf-qbatrtu medications without asking your doctor or pharmacist [...] juice or regular (not diet) soda 6 [employer]s small box of raisins 4 glucose [...] day to have your insulin doses adjusted. [facility] Endocrine clinic office [...] Yuan Webber and/or the Cardiac Surgery Physician Assistant Department Manager Team may be reached at . [...] Dr. Yuan Webber. You may use a [place] Track or treadmill but avoid any pulling [...] friends, go to a movie, go to zoroastrianism, etc. ?? Heavy activities: No hunting, skiing, jogging, snow shoveling, snowmobiling, lawn mowing, swimming, golf or tennis until after your return appointment with the surgeon. Do not ride motorcycles, [employer] tractors or horses. Avoid the use of [...] should resume a low fat, low cholesterol, [place] Heart Association Diet/Diabetic diet. ?? Driving: No [...] @ 1:20p ?? Patient to follow-up with Tube Buffer/heart failure team in one week. An appointment has been made for you, you can call [phone] ?? Patient to follow-up with Cardiac Surgery, Dr. Yuan Webber, in ~ 4 weeks with CXR, EKG. ? Cardiac Rehabilitation: Gregory Hoang??was seen today regarding participation in the outpatient Phase 2 Cardiac Rehabilitation at [facility]. ?? The patient agrees to a referral to this program.? The referral will be sent at discharge and the patient should be contacted by the Program within 1- 2 weeks from discharge. ? Future Appointments and Orders Future Appointments Provider Department Dept Phone ?? 09/07/2017 3:00 PM LAB, THREE L Lab 3L [facility] [phone] ?? 09/07/2017 4:00 PM Luz Prescott MD Endocrinology at [place] [phone] Future Orders Complete By Expires ?? EKG 12 Lead [EKG1 Custom] 08/14/2017 02/13/2018 ?? Process Instructions: ? Scheduling Instructions: ? Questions: ? Which location will this be performed?: [place] ?? Is a rhythm strip needed?: No ?? If EKG Reason is Pre-op Evaluation, indicate diagnosis for surgery.: ?? XR Chest PA & Lateral (Generic) [[id number] Custom] 08/14/2017 02/13/2018 ?? Process Instructions: ? Scheduling Instructions: ? Questions: ? Where will study be performed?: [place] [facility] ?? Portable exam?: ?? Reason for exam and clinical history: CABG x 3 ?? Other pertinent information: ?? Stat read required?: ?? Date of injury if applicable: ?? Requested Time: ?? Referral to Cardiac Rehab [THL036 Custom] As directed ? Process Instructions: ?? If no progress note charted, please enter Clinical details in comments. ?? Scheduling Instructions: ? Questions: ? My question or request is: s/p CABG. Cardiac rehab at [facility] ? Arrangements for VNA/home care: As [...] RN - 07/14/2017 2:34 PM EST The patient/customer response representative has been provided a list of Home Health Agencies/DME vendors which serve their preferred geographic area. A letter describing our affiliations was reviewed with them and theywere educated about their right to choose where referrals are placed. Patient requests referral to [facility] PHONE: [phone] FAX: [phone] Expected date of discharge: 07/14 Referral routed to the Crm Architect for matching with agency/vendor and to provide [...] day to have your insulin doses adjusted. [facility] Endocrine clinic office Kathie Carrera APRN [facility] Endocrinology Diabetes Management Pager [phone] minutes of this 35 minute visit was spent with the patient in counseling on diabetes and treatment plan, reviewing all glucose and insulin data as well as relevant laboratory results with the patient, and coordination of care on the inpatient unit including nursing and primary team. Zulma Andres, RN - 07/14/2017 10:30 AM EST The patient/customer response representative has been provided a list of Home Health Agencies/DME vendors which serve their preferred geographic area. A letter describing our affiliations was reviewed with them and theywere educated about their right to choose where referrals are placed. Patient requests referral to : Yasmani Munguia ([facility] [place] [facility]-is in [place]) PHONE: [phone] FAX: [phone]. Expected date of discharge: 07/14/17 Referral routed to the Crm Architect for matching with agency/vendor and to provide [...] hours. If BG remains greater than 240, itward37 units (no more than three times) &??call [...] #6 s/p CABG X3. [facility] 80 at [place], reports no symptoms but did drink some [...] Will continue to follow Katerin Azul APRN [facility] Endocrinology Diabetes Management Pager [phone] minutes of this 25 minute visit [...] of infiltration/extravasation Discussed plan of care with CERTIFIED OPHTHALMIC SURGICAL ASSISTANT and RN. Elevate exrtemity and apply [...] measuring tape and identifier in the photo) INFORMATICS EDUCATOR CARING FOR THIS PATIENT WILL CONTINUE TO [...] measuring tape and identifier in the photo) INFORMATICS EDUCATOR CARING FOR THIS PATIENT WILL CONTINUE TO [...] regard to both infiltrates addressed by this comic book writer.All of Mr. Hoang's responses were entirely appropriate. Images of infiltrates attached here. Martha Sharp APRN - 07/13/2017 8:01 AM EST Cardiac Surgery Progress Note: ID: [id number] 72 year old male POD#6 s/p CABGx3 [...] discharge. ?? I have met with the patient/customer response representative to discuss discharge planning needs. I have provided the [facility], Office of Care Management letter from the Fire Fighter pertaining to rehab referrals. I have also provided a letter describing our affiliations within the [facility] and educated them about their right to choose where referrals are placed. ?? I reviewed the different levels of rehab including SNF, swing, acute and LTAC with the patient/customer response representative. ?? The patient/customer response representative has been provided a list of facilities within their preferred geographic area. ?? I have requested that the patient/customer response representative provide at least three choices for referral. ?? The patient/customer response representative have requested referrals to: ?? 1. . ?? 2. [place] ?? 3. More to be entered ?? Expected date of discharge: 07/14 Note routed to Crm Architect who will communicate referrals to facilities and [...] hours. If BG remains greater than 240, yphewz73 units (no more than three times) & [...] hours. If BG remains greater than 240, pqdqvu61 units (no more than three times) & call for new basal insulin orders. ??If less than 240 after two hours, give no insulin and resume prior schedule. Will continue to follow Katerin Patel. STACIE Azul [facility] Endocrinology Diabetes Management Pager [phone] minutes of this 35 minute visit was spent with the patient in counseling on diabetes and treatment plan, reviewing all glucose and insulin data as well as relevant laboratory results with the patient, and coordination of care on the inpatient unit including nursing and primary team. Makayla Stevenson APRN - 07/12/2017 9:52 AM EST Cardiac Surgery Progress Note: ID: [id number] 72 year old male POD#5 s/p CABGx3 [...] 07/11/2017 7:18 PM EST Patient arrived from [facility]. VSS. MSI dressing pulled off with [...] hours. If BG remains greater than 240, lxghhy39 units (no more than three times) & [...] AM EST Cardiac Surgery Progress Note: ID: [id number] 72 year old male POD#4 s/p CABGx3 [...] hours. If BG remains greater than 240, qtbniz26 units (no more than three times) & [...] AM EST Cardiac Surgery Progress Note: ID: [id number] 72 year old male POD#3 s/p CABGx3 [...] Gas) No results found for: PHART, PO2ART, NWH0IRE Assessment/Plan: 72 year old male POD#3 s/p [...] Encounter Note Patient Name: Gregory Hoang : [id number] MR#: [id number] Admit Date: 07/05/2017 4:20 PM Hospital Day 4 days Narrative: Patient was sitting in chair, hugging heart pillow, opened his eyes, nodding to come into room Assessment: Patient was sleepy. Intervention and Outcome: Introduced testing manager services and patient reached his hand out in appreciation. Follow-up: Forensic Chemist remains available for support. Time in Direct [...] AM EST Cardiac Surgery Progress Note: ID: [id number] 72 year old male POD#2 s/p CABGx3 [...] of Cardiac Surgery Date: 07/09/2017 Magnolia Santiago [facility] - 07/09/2017 1:[address] [...] when IABP d/c'ed. Gretchen Carolina, PT Pager [phone] Maddison Cee PA - 07/08/2017 11:27 AM EST Cardiac Surgery Progress Note: ID: [id number] 72 year old male POD#1 s/p CABGx3 [...] unit. NICK SEGAL MD 07/08/2017 Jay Munoz [facility] - 07/08/2017 4:[address] [...] in place in R femoral. No hematoma. DIRECTOR OF PRODUCT MARKETING- Intact Psych- Anxious Skin- Dry, no peripheral [...] intact. IABP in place in R femoral. DIRECTOR OF PRODUCT MARKETING- Intact Psych- Anxious Skin- Dry, no peripheral [...] note for details. DAPHNE SHAHID MD Pager [phone] Jet Mckenna MD - 07/05/2017 6:48 PM EST Preliminary Cardiac Catheterization Procedure Note: Procedure(s) performed: Left heart cath, IABP insertion Access: Right DEVELOPMENT SPEC-->8fr IABP A time-out was conducted prior to [...] effect. Heparin gtt maintained. Pt transferred to warehouse laborer. documented in this encounter H&P Notes Daphne Shahid MD - 07/05/2017 6:08 PM EST CARDIOLOGY HISTORY & PHYSICAL EXAM Date of Admission: 07/05/2017 ( Hospital Day 0 days ) Responsible Attending: Daphne Shahid MD PCP: Lovely Vicente MD PCP#: [phone] Patient Active Problem List Diagnosis Code ??? [...] No significant valvular disease. Taken to the warehouse laborer urgently for ongoing STEMI. [facility] Labs: INR 1.0 WBC 5.88 Hgb [...] monitor I/O - s/p lasix in the warehouse laborer, redose to aim net neg 1L [...] - ISS - hold metformin - f[facility]u [facility] #Home Meds - continue levothyroxine 175mcg - CPAP at night # Routine - DVT PPx: heparin drip - Diet: NPO - Code Status: FULL - Dispo: [facility] Cedric Bey MD Internal Medicine, PGY-2 Cardiology S1, Team Pager # [phone] CARDIOLOGY ATTENDING NOTE Patient: Gregory Hoang Date [...] amenable for PCI. DAPHNE SHAHID MD Pager [phone] documented in this encounter Miscellaneous Notes Consult Note - Daphne Shahid MD - 07/14/2017 11:46 AM EST Heart Failure Service Inpatient Consult Note Gregory Hoang Date of : 1945 Age: 72 y.o. Today's date: 07/14/17 PCP: Lovely Vicente MD PHOTOVOLTAIC TESTING TECHNICIAN: None Place of Service: [facility] Reason for Consult: Dr. Webbre has requested consultation regarding systolic heart failure [...] SETUP performed by Manny Mcknight MD at [facility] MAIN OR ??? PRO CABG, ARTERIAL, SINGLE N/A 07/07/2017 @CABG, USING ARTERIAL GRAFT;SINGLE ARTERIAL GRAFT (WRVU 33.75) performed by Yuan Webber MD at [facility] MAIN OR ??? PRO CABG, ARTERY-VEIN, TWO N/A 07/07/2017 @CABG, TWO VENOUS GRAFTS & ARTERIAL GRAFT (WRVU 7.93) performed by Yuan Webber MD at [facility] MAIN OR ??? PRO COLONOSCOPY, REMV LESN, SNARE 01/16/2014 COLONOSCOPY, POLYPECTOMY, REMOVAL LESION BY SNARE performed by Nohemi Jaimes MD at [facility] ENDOSCOPY ??? PRO ENDOSCOPY W/VIDEO-ASST VEIN HARVEST, CABG Right 07/07/2017 ENDOSCOPIC HARVEST VEIN(S) FOR CABG (WRVU 0.31) performed by Yuan Webber MD at [facility] MAIN OR ??? PRO THYROIDECTOMY 03/28/2013 THYROIDECTOMY, TOTAL OR COMPLETE performed by Manny Mcknight MD at [facility] MAIN OR Outpt Meds: Current [...] following studies: EKG 07/14/17: NSR 75 bpm, INVENTORY CONTROL CLERK anterior infarct, LAD CXR 07/11/17: FINDINGS: Sternotomy wires. The patient has been extubated, left chest tube removed, and [place] catheter removed since the 07/07/2017 study. Atelectasis [...] was discussed with Zehra. Jaden Kelley MD Inspector Materials And Processes Pager [phone] CARDIOLOGY ATTENDING NOTE Patient: Gregory Hoang Date [...] heart failure clinic. DAPHNE SHAHID MD Pager [phone] Plan of Care - Alden Chavarria, WEB PUBLISHER - 07/14/2017 11:35 AM EST Problem: Patient [...] Discharge Disposition: home with assist Alden Chavarria, WEB PUBLISHER Pager: [phone] Inpatient Physical Therapy Problem: Acute Rehab Services [...] sit/sit to supine -- Bed Mobility Goal, [place] Level supervision required -- Bed Mobility Goal, [...] - 3 days -- Gait Training Goal, [place] Level supervision required -- Gait Training Goal, [...] days -- Transfer Training Goal, Activity Type fxn-cu-euyqd/goivs-xr-ucb;ljb-oz-uafwh/iiqvi-xh-ufb;toilet -- Transfer Train Goal, [place] Level supervision required -- Transfer Training Goal, [...] keeping present for 2 days per family. Human Resources Project Coordinator noted of frustrations, house keeping sent to room. Patient offered showered twice, refused. at bedside, frustrated that shower not complete, informed that patient had refused several times. requesting to see CAR SALESMAN, paged sent to Martha, will come to bedside (middle of consult). not willing to wait, Martha notified that family had gone home. Encouraged to come for morning rounds a t 8am. Diabetes team at bedside - insulin adjustments made. Call cabello in reach. Continue to monitor. PLAN MOVING FORWARD: Ambulate, dressing changes BID, Please change drsg at 4am per Martha CAR SALESMAN request. INDIVIDUALIZED FALL PREVENTION INTERVENTIONS: Patient-specific fall [...] levels on the lower side, 60ml of [place] juice given after a FS of 80. [...] 07/13/17 0502 Interdisciplinary Rounds/Family Conf Participants correctional counselor/case manager;dietitian/nutrition services;nursing;occupational therapy;patient;pharmacy;physical therapy;physician Plan of Care [...] Anticipated Discharge Disposition: home with assist Pager: [phone] CLARISSA SEGAL, PT 07/12/2017 Physical Therapy Rehabilitation [...] to sit/sit to supine Bed Mobility Goal, [place] Level supervision required Bed Mobility Goal, Additional Goal adheres to psternal precautions for transfer Goal: Gait Training Goal Stand Alone Therapy Goal Outcome: Ongoing (Interventions Implemented as Appropriate) 07/12/17 1225 Gait Training Goal Gait Training Goal, Date Established 07/12/17 Gait Training Goal, Time to Achieve 2 - 3 days Gait Training Goal, [place] Level supervision required Gait Training Goal, Assist [...] 3 days Transfer Training Goal, Activity Type ppk-iq-kgjox/fvbaz-sg-snr;bue-gl-kzfxi/lwbex-lm-pod;toilet Transfer Train Goal, [place] Level supervision required Transfer Training Goal, Additional Goal adheres to sternal precautions during transfer Consult Note - Octavia Vaughn RN - 07/12/2017 10:[address] [facility] CARDIAC REHABILITATION Gregory Hoang was seen today regarding participation in the outpatient Phase 2 Cardiac Rehabilitation at [facility]. The patient agrees to a referral [...] IV site, amio to other piv and HOSPITAL ADMITTING CLERK at bedside to help assess, IV [...] Outcome: Ongoing (Interventions Implemented as Appropriate) 07/11/17199907/11/17200907/12/17 [facility] Daily Care Interventions Self-Care Promotion [...] staff, he stood and marched in place. [place] weak, wanting to sit back down. Remained [...] Outcome: Ongoing (Interventions Implemented as Appropriate) 07/05/17 2300 Mutuality/Individual Preferences What Anxieties, Fears or [...] Health/Prescription Coverage: Primary Insurance: MEDICARE Secondary Insurance: [employer] [place] Prescription Coverage: yes [place] Pharmacy[facility] [place] Other: none Primary Care Provider: Lovely Vicente MD [phone] Patient/Caregiver Goals of Treatment:live and get my breath back Potential Needs for Transition of Care: Rehab/SNF: [facility]; [facility] [facility] NA DME: TBD Dialysis: na Community Resources: available Transportation: yes Other: none Anticipated Barriers to Discharge/Special Considerations: none Plan: Likely SNF Rehab before home A member of the Care Management team will continue to monitor progress, follow for continuity of care and assist with transition of care planning. ERLIN Weiss Pager: [phone] Consult Note - Katerin Azul RN - [...] potential to d/c gtt and start CF. care home diabetes care: Medications - Outpatient treatment regimen recommendations pending based on the hospital course. Monitoring - continue BG tid ac & hs Diet - low fat/low carb diet Exercise - weight-bearing exercise 30 min/day, as tolerated Thank you for allowing us to provide care for your patient W/E coverage, Dr. Jeane Tatum, pager [phone] Katerin Patel. STACIE Azul Endocrinology Diabetes Management Pager [phone] Plan of Care - Stephanie Godoy RN [...] Webber MD - 07/07/2017 6:[address] [facility] Operative Note Patient Name: Gregory Hoang : [id number] MR#: [id number] Case Date: 07/07/2017 Surgeon: Surgeon(s) and Role: * Yuan Webber MD - Primary * Michael Drake PA - Physician Assistant Department Manager * Linda Flores PA - Physician Assistant Department Manager Preoperative diagnosis: 3VD Postoperative diagnosis: CAD, [...] Operative Note Patient Name: Gregory Hoang : [id number] MR#: [id number] Case Date: 07/07/2017 Surgeon: Surgeon(s) and Role: * Yuan Webber MD - Primary * Michael Drake PA - Physician Assistant Department Manager * Linda Flores PA - Physician Assistant Department Manager Preoperative diagnosis: 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 In this [...] code status: Full Code Katty Jovani, MS3 [facility] Cardiology S1 (Pager [phone]) Plan of Care - Emelia Ibarra RN [...] hospital and ruled infor non-ST segment elevation [place]. This almost certainly represents the residual of [...] SETUP performed by Manny Mcknight MD at [facility] MAIN OR ??? PRO COLONOSCOPY, REMV LESN, SNARE 01/16/2014 COLONOSCOPY, POLYPECTOMY, REMOVAL LESION BY SNARE performed by Nohemi Jaimes MD at [facility] ENDOSCOPY ??? PRO THYROIDECTOMY 03/28/2013 THYROIDECTOMY, TOTAL OR COMPLETE performed by Manny Mcknight MD at [facility] MAIN OR Social History: Social [...] with other involved physicians Yuan Webber MD [phone] Med Student Progress Note - Jovani Katty [...] major CV events such as , stroke, [place], repeat revascularization compared to PCI). 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 Lasix given in warehouse laborer, 1.4 L out at this time. [...] Nobles MD [facility] [address] [place], [place] [address] (Wo rk) 05/28/2022 Appointment Cardiology Zulma Dolan MD [facility] [address] [place] [address] (Wo rk) 05/28/2022 Laboratory Appointment Lab 05/28/2022 Office Visit Cardiology Zulma Dolan MD [facility] [place] [id number] Liz Poole PA [facility] [place] [address] 06/10/2022 Office Visit Dermatology Laura Scherer MD [facility] [address] [place] [place], [place] [address] ( rk) Scheduled Orders Name Type Priority Associated [...] procedure are i n the results section. ASTROCHEMIST SCAN 07/15/2017 12:00 Res ults for this [...] Routine 07/08/2017 4:00 Results f or this ([facility]) AM EST [...] Routine 07/07/2017 5:15 Results f or this ([facility]) AM EST procedure [...] Routine 07/06/2017 7:40 Results f or this ([facility]) PM EST procedure [...] Timed 07/06/2017 2:10 Results f or this ([facility]) PM EST procedure [...] section. TYPE AND SCREEN Routine 07/06/2017 12:[address] ([facility]/SHANDA) PM EST APTT [...] Routine 07/06/2017 8:10 Results f or this ([facility]) AM EST procedure [...] Routine 07/06/2017 2:20 Results f or this ([facility]) AM EST procedure [...] Routine 07/05/2017 8:20 Results f or this ([facility]) PM EST procedure [...] Timed 07/05/2017 4:55 Results f or this ([facility]) PM EST procedure [...] EXAMINATION: XR CHEST PA AND LATERAL (GE [employer]IC) CLINICAL HISTORY: CABG x 3 TECHNIQUE: PA [...] Teague APRN IMG DX ORDERABLES SCAN DOC: ASTROCHEMIST (07/15/2017 12:00 AM EST) Narrative 07/15/2017 12:00 [...] Signature POC Glucose 186 65 - 199 [facility] mg/dL [facility] Comment: Supplemental ranges: <140 mg/dL before meals <180 mg/dL all other times of the day Specimen Anatomical Collection Method Collection Time Receive d Time (Source) Location / / Volume Laterality Blood specimen 07/14/2017 11:56 7 (specimen) AM EST 11:56 AM EST Yuan Webber MD POINT OF CARE TEST ORDERABLE S Performing Organization Address City/[facility] [[email or web address]] Code Phon e Number [address] POCT Glucose (07/14/2017 7:52 AM EST) athologist Signature POC Glucose 126 65 - 199 [facility] mg/dL [facility] Comment: Supplemental ranges: <140 mg/dL before meals <180 mg/dL all other times of the day Specimen Anatomical Collection Method Collection Time Receive d Time (Source) Location / / Volume Laterality Blood specimen 07/14/2017 7:52 AM 017 7:52 (specimen) EST AM EST Yuan Webber MD POINT OF CARE TEST ORDERABLE S Performing Organization Address City/[facility] [[email or web address]] [place] [address] (ABNORMAL) Prothrombin Time (07/14/2017 4:46 AM EST) athologist Signature PT 26.4 (H) 11.8 - 14.0 [facility] LABORATORY INR 2.4 (H) 0.9 - 1.1 [facility] [...] [place] STACIE HEMATOLOGY ORDERABLES Performing Organization Address City/[facility] [[email or web address]] Code Phon e Number [address] Potassium (07/14/2017 4:46 AM EST) athologist Signature Potassium 4.3 3.5 - 5.0 [facility] mmol/L [facility] Comment: Please note: ??Patients [...] Resulting Agency Comment Spec In Lab Makayla [place] STACIE CHEMISTRY ORDERABLES Performing Organization Address City/[facility] Phon e Number [address] POCT Glucose (07/14/2017 4:34 AM EST) athologist Signature POC Glucose 115 65 - 199 [facility] mg/dL [facility] Comment: Supplemental ranges: <140 mg/dL before meals <180 mg/dL all other times of the day Specimen Anatomical Collection Method Collection Time Receive d Time (Source) Location / / Volume Laterality Blood specimen 07/14/2017 4:34 AM 017 4:34 (specimen) EST AM EST Yuan Webber MD POINT OF CARE TEST ORDERABLE S Performing Organization Address City/State/[place] [address] POCT Glucose (07/13/2017 11:33 PM EST) athologist Signature POC Glucose 132 65 - 199 [place] mg/dL [facility] Comment: Supplemental ranges: <140 mg/dL before meals <180 mg/dL all other times of the day Specimen Anatomical Collection Method Collection Time Receive d Time (Source) Location / / Volume Laterality Blood specimen 07/13/2017 11:33 7 (specimen) PM EST 11:33 PM EST Yuan Webber MD POINT OF CARE TEST ORDERABLE S Performing Organization Address City/[facility]/[place] [address] POCT Glucose (07/13/2017 9:25 PM EST) athologist Signature POC Glucose 121 65 - 199 [place] mg/dL [facility] Comment: Supplemental ranges: <140 mg/dL before meals <180 mg/dL all other times of the day Specimen Anatomical Collection Method Collection Time Receive d Time (Source) Location / / Volume Laterality Blood specimen 07/13/2017 9:25 PM 017 9:25 (specimen) EST PM EST Yuan Webber MD POINT OF CARE TEST ORDERABLE S Performing Organization Address City/State/[place] [address] POCT Glucose (07/13/2017 4:55 PM EST) athologist Signature POC Glucose 79 65 - 199 [facility] mg/dL [facility] Comment: Supplemental ranges: <140 mg/dL before meals <180 mg/dL all other times of the day Specimen Anatomical Collection Method Collection Time Receive d Time (Source) Location / / Volume Laterality Blood specimen 07/13/2017 4:55 PM 017 4:55 (specimen) EST PM EST Yuan Webber MD POINT OF CARE TEST ORDERABLE S Performing Organization Address City/State/ZIP Code Phon e Number [address] POCT Glucose (07/13/2017 11:16 AM EST) athologist Signature POC Glucose 163 65 - 199 [facility] mg/dL [facility] Comment: Supplemental ranges: <140 mg/dL before meals <180 mg/dL all other times of the day Specimen Anatomical Collection Method Collection Time Receive d Time (Source) Location / / Volume Laterality Blood specimen 07/13/2017 11:16 7 (specimen) AM EST 11:16 AM EST Yuan Webber MD POINT OF CARE TEST ORDERABLE S Performing Organization Address City/[facility]/[place] [address] POCT Glucose (07/13/2017 8:07 AM EST) athologist Signature POC Glucose 96 65 - 199 [facility] Comment: Supplemental ranges: <140 mg/dL before meals <180 mg/dL all other times of the day Specimen Anatomical Collection Method Collection Time Receive d Time (Source) Location / / Volume Laterality Blood specimen 07/13/2017 8:07 AM 017 8:07 (specimen) EST AM EST Yuan Webber MD POINT OF CARE TEST ORDERABLE S Performing Organization Address City/State/[place] [address] (ABNORMAL) Prothrombin Time (07/13/2017 4:26 AM EST) athologist Signature PT 20.8 (H) 11.8 - 14.0 [facility] LABORATORY INR 1.8 (H) 0.9 - 1.1 [facility] [...] Agency Comment Spec In Lab Makayla Wilson FLAVOR TANK TENDER HEMATOLOGY ORDERABLES Performing Organization Address City/State/[place] [address] (ABNORMAL) Basic Metabolic Panel (non-fasting) (07/13/2017 4:26 AM EST) athologist Signature Glucose Lvl 95 65 - 199 [facility] mg/dL [facility] Comment: Diabetes: >=200 mg/dL plus symp toms BUN 25 (H) 10 - 20 mg/dL [facility] Creatinine 1.19 0.80 - 1.50 mg/dL [facility] Sodium 143 135 - 145 mmol/L [facility] Potassium 3.7 3.5 - 5.0 mmol/L [facility] [...] - 15 mmol/L [facility] Calcium 7.7 (L) 8.5 - 10.5 mg/dL [facility] Estimated GFR 60 >=60 [facility] Comment: The reported eGFR should be multiplied b y 1.2 for patients. The MDRD is not an appropriate measure o f renal function for patients with body mass extremes or in patients with acute kidney failure. http://[employer]/DHnkdep http://[email or web address]/DHMCnkf Specimen Anatomical Collection Method Collection Time Receive d Time (Source) Location / / Volume Laterality Blood specimen 07/13/2017 4:26 AM 017 4:46 (specimen) EST AM EST Resulting Agency Comment Spec In Lab Makayla Katie QUINONES CHEMISTRY ORDERABLES Performing Organization Address City/State/[place] [address] POCT Glucose (07/13/2017 3:52 AM EST) athologist Signature POC Glucose 93 65 - 199 [place] mg/dL [facility] Comment: Supplemental ranges: <140 mg/dL before meals <180 mg/dL all other times of the day Specimen Anatomical Collection Method Collection Time Receive d Time (Source) Location / / Volume Laterality Blood specimen 07/13/2017 3:52 AM 017 3:52 (specimen) EST AM EST Yuan Webber MD POINT OF CARE TEST ORDERABLE S Performing Organization Address City/State/[place] [address] POCT Glucose (07/13/2017 12:21 AM EST) athologist Signature POC Glucose 80 65 - 199 [place] mg/dL [facility] Comment: Supplemental ranges: <140 mg/dL before meals <180 mg/dL all other times of the day Specimen Anatomical Collection Method Collection Time Receive d Time (Source) Location / / Volume Laterality Blood specimen 07/13/2017 12:21 7 (specimen) AM EST 12:21 AM EST Yuan Webber MD POINT OF CARE TEST ORDERABLE S Performing Organization Address City/State/ZIP Code Phon e Number [address] POCT Glucose (07/12/2017 8:22 PM EST) athologist Signature POC Glucose 119 65 - 199 [place] mg/dL [facility] Comment: Supplemental ranges: <140 mg/dL before meals <180 mg/dL all other times of the day Specimen Anatomical Collection Method Collection Time Receive d Time (Source) Location / / Volume Laterality Blood specimen 07/12/2017 8:22 PM 017 8:22 (specimen) EST PM EST Yuan Webber MD POINT OF CARE TEST ORDERABLE S Performing Organization Address City/State/ZIP Code Phon e Number [address] POCT Glucose (07/12/2017 4:02 PM EST) athologist Signature POC Glucose 114 65 - 199 [place] mg/dL [facility] Comment: Supplemental ranges: <140 mg/dL before meals <180 mg/dL all other times of the day Specimen Anatomical Collection Method Collection Time Receive d Time (Source) Location / / Volume Laterality Blood specimen 07/12/2017 4:02 PM 017 4:02 (specimen) EST PM EST Yuan Webber MD POINT OF CARE TEST ORDERABLE S Performing Organization Address City/State/ZIP Code Phon e Number [address] POCT Glucose (07/12/2017 11:28 AM EST) athologist Signature POC Glucose 164 65 - 199 [place] mg/dL [facility] Comment: Supplemental ranges: <140 mg/dL before meals <180 mg/dL all other times of the day Specimen Anatomical Collection Method Collection Time Receive d Time (Source) Location / / Volume Laterality Blood specimen 07/12/2017 11:28 7 (specimen) AM EST 11:28 AM EST Yuan Webber MD POINT OF CARE TEST ORDERABLE S Performing Organization Address City/State/ZIP Code Phon e Number [address] POCT Glucose (07/12/2017 7:34 AM EST) athologist Signature POC Glucose 109 65 - 199 [place] mg/dL [facility] Comment: Supplemental ranges: <140 mg/dL before meals <180 mg/dL all other times of the day Specimen Anatomical Collection Method Collection Time Receive d Time (Source) Location / / Volume Laterality Blood specimen 07/12/2017 7:34 AM 017 7:34 (specimen) EST AM EST Yuan Webber MD POINT OF CARE TEST ORDERABLE S Performing Organization Address City/State/[place] [address] (ABNORMAL) Basic Metabolic Panel (non-fasting) (07/12/2017 4:11 AM EST) athologist Signature Glucose Lvl 92 65 - 199 [facility] mg/dL [facility] Comment: Diabetes: >=200 mg/dL plus symp toms BUN 31 (H) 10 - 20 mg/dL [facility] Creatinine 1.23 0.80 - 1.50 mg/dL [facility]ORATORY Sodium 145 135 - 145 mmol/L [facility] Potassium Not Perf 3.5 - 5.0 mmol/L [facility] Comment: Duplicate order Please note: ??Patients with WBC >100,00 0 may have falsely elevated Potassium levels. ??For accurate Potassium quantif ication in these patients send serum separator tube (gold top) for subsequent determinations. ??Contact the Clinical Chemistry Laboratory if there are any qu estions. Chloride 106 98 - 107 mmol/L [facility] CO2 Not Perf 22 - 31 mmol/L [facility] Comment: Add-on request. Sample too old to perform test. Anion Gap Not Calculated 5 - 15 mmol/L [facility] Calcium 8.1 (L) 8.5 - 10.5 mg/dL [facility] Estimated GFR 58 (L) >=60 [facility] Comment: The reported eGFR should be multiplied b y 1.2 for patients. The MDRD is not an appropriate measure o f renal function for patients with body mass extremes or in patients with acute kidney failure. http://[employer]/DHnkdep http://[employer]/DHMCnkf Specimen Anatomical Collection Method Collection Time Receive d Time (Source) Location / / Volume Laterality Blood specimen 07/12/2017 4:11 AM 017 8:57 (specimen) EST AM EST Resulting Agency Comment Spec In Lab Makayla Wilson APRN CHEMISTRY ORDERABLES Performing Organization Address [facility]/[place] [address] (ABNORMAL) Prothrombin Time (07/12/2017 4:11 AM EST) athologist Signature PT 15.4 (H) 11.8 - 14.0 [facility] LABORATORY INR 1.2 (H) 0.9 - 1.1 [facility] [...] Wilson APRN HEMATOLOGY ORDERABLES Performing Organization Address [facility] [place] [address] Potassium (07/12/2017 4:11 AM EST) athologist Signature Potassium 3.8 3.5 - 5.0 [facility] mmol/L [facility] Comment: Please note: ??Patients [...] Organization Address City/State/ZIP Code Phon e Number [address] POCT Glucose (07/12/2017 4:10 AM EST) athologist Signature POC Glucose 90 65 - 199 [place] mg/dL [facility] Comment: Supplemental ranges: <140 mg/dL before meals <180 mg/dL all other times of the day Specimen Anatomical Collection Method Collection Time Receive d Time (Source) Location / / Volume Laterality Blood specimen 07/12/2017 4:10 AM 017 4:10 (specimen) EST AM EST Yuan Webber MD POINT OF CARE TEST ORDERABLE S Performing Organization Address City/[facility]/ZIP Code Phon e Number [address] POCT Glucose (07/11/2017 11:57 PM EST) athologist Signature POC Glucose 98 65 - 199 [place] mg/dL [facility] Comment: Supplemental ranges: <140 mg/dL before meals <180 mg/dL all other times of the day Specimen Anatomical Collection Method Collection Time Receive d Time (Source) Location / / Volume Laterality Blood specimen 07/11/2017 11:57 7 (specimen) PM EST 11:57 PM EST Yuan Webber MD POINT OF CARE TEST ORDERABLE S Performing Organization Address City/[facility]/[place] [address] POCT Glucose (07/11/2017 8:32 PM EST) athologist Signature POC Glucose 146 65 - 199 [place] mg/dL [facility] Comment: Supplemental ranges: <140 mg/dL before meals <180 mg/dL all other times of the day Specimen Anatomical Collection Method Collection Time Receive d Time (Source) Location / / Volume Laterality Blood specimen 07/11/2017 8:32 PM 017 8:32 (specimen) EST PM EST Yuan Webber MD POINT OF CARE TEST ORDERABLE S Performing Organization Address City/State/ZIP Code Phon e Number [facility] [place] [address] XR Chest PA & [...] e xtubated, left chest tube removed, and [place]uzi catheter removed since the study. Atelectasis at [...] e xtubated, left chest tube removed, and [place] catheter removed since the study. Atelectasis at [...] (H) 65 - 199 [place] mg/dL [facility] Comment: Supplemental ranges: <140 mg/dL before meals <180 mg/dL all other times of the day Specimen Anatomical Collection Method Collection Time Receive d Time (Source) Location / / Volume Laterality Blood specimen 07/11/2017 4:05 PM 017 4:05 (specimen) EST PM EST Yuan Webber MD POINT OF CARE TEST ORDERABLE S Performing Organization Address City/State/[place] [address] POCT Glucose (07/11/2017 11:55 AM EST) athologist Signature POC Glucose 176 65 - 199 [place] mg/dL [facility] Comment: Supplemental ranges: <140 mg/dL before meals <180 mg/dL all other times of the day Specimen Anatomical Collection Method Collection Time Receive d Time (Source) Location / / Volume Laterality Blood specimen 07/11/2017 11:55 7 (specimen) AM EST 11:55 AM EST Yuan Webber MD POINT OF CARE TEST ORDERABLE S Performing Organization Address City/State/[place] [address] POCT Glucose (07/11/2017 7:53 AM EST) athologist Signature POC Glucose 189 65 - 199 [place] mg/dL [facility] Comment: Supplemental ranges: <140 mg/dL before meals <180 mg/dL all other times of the day Specimen Anatomical Collection Method Collection Time Receive d Time (Source) Location / / Volume Laterality Blood specimen 07/11/2017 7:53 AM 017 7:53 (specimen) EST AM EST Yuan Webber MD POINT OF CARE TEST ORDERABLE S Performing Organization Address City/State/ZIP Code Phon e Number [address] POCT Glucose (07/11/2017 4:22 AM EST) athologist Signature POC Glucose 151 65 - 199 [place] mg/dL [facility] Comment: Supplemental ranges: <140 mg/dL before meals <180 mg/dL all other times of the day Specimen Anatomical Collection Method Collection Time Receive d Time (Source) Location / / Volume Laterality Blood specimen 07/11/2017 4:22 AM 017 4:22 (specimen) EST AM EST Yuan Webber MD POINT OF CARE TEST ORDERABLE S Performing Organization Address City/State/[place] [address] Potassium (07/11/2017 2:20 AM EST) athologist Signature Potassium 4.5 3.5 - 5.0 [facility] mmol/L [facility] Comment: Please note: ??Patients [...] Organization Address City/State/ZIP Code Phon e Number [address] POCT Glucose (07/11/2017 12:17 AM EST) athologist Signature POC Glucose 162 65 - 199 [facility] mg/dL [facility] Comment: Supplemental ranges: <140 mg/dL before meals <180 mg/dL all other times of the day Specimen Anatomical Collection Method Collection Time Receive d Time (Source) Location / / Volume Laterality Blood specimen 07/11/2017 12:17 7 (specimen) AM EST 12:17 AM EST Yuan Webber MD POINT OF CARE TEST ORDERABLE S Performing Organization Address City/[facility]/ZIP Code Phon e Number [address] POCT Glucose (07/10/2017 8:47 PM EST) athologist Signature POC Glucose 191 65 - 199 [place] mg/dL [facility] Comment: Supplemental ranges: <140 mg/dL before meals <180 mg/dL all other times of the day Specimen Anatomical Collection Method Collection Time Receive d Time (Source) Location / / Volume Laterality Blood specimen 07/10/2017 8:47 PM 017 8:47 (specimen) EST PM EST Yuan Webber MD POINT OF CARE TEST ORDERABLE S Performing Organization Address City/State/ZIP Code Phon e Number [address] POCT Glucose (07/10/2017 4:06 PM EST) athologist Signature POC Glucose 131 65 - 199 [place] mg/dL [facility] Comment: Supplemental ranges: <140 mg/dL before meals <180 mg/dL all other times of the day Specimen Anatomical Collection Method Collection Time Receive d Time (Source) Location / / Volume Laterality Blood specimen 07/10/2017 4:06 PM 017 4:06 (specimen) EST PM EST Yuan Webber MD POINT OF CARE TEST ORDERABLE S Performing Organization Address City/State/ZIP Code Phon e Number [address] POCT Glucose (07/10/2017 3:08 PM EST) athologist Signature POC Glucose 151 65 - 199 [place] mg/dL [facility] Comment: Supplemental ranges: <140 mg/dL before meals <180 mg/dL all other times of the day Specimen Anatomical Collection Method Collection Time Receive d Time (Source) Location / / Volume Laterality Blood specimen 07/10/2017 3:08 PM 017 3:08 (specimen) EST PM EST Yuan Webber MD POINT OF CARE TEST ORDERABLE S Performing Organization Address City/State/ZIP Code Phon e Number [address] POCT Glucose (07/10/2017 2:25 PM EST) athologist Signature POC Glucose 146 65 - 199 [place] mg/dL [facility] Comment: Supplemental ranges: <140 mg/dL before meals <180 mg/dL all other times of the day Specimen Anatomical Collection Method Collection Time Receive d Time (Source) Location / / Volume Laterality Blood specimen 07/10/2017 2:25 PM 017 2:25 (specimen) EST PM EST Yuan Webber MD POINT OF CARE TEST ORDERABLE S Performing Organization Address City/State/[place] [address] POCT Glucose (07/10/2017 1:23 PM EST) athologist Signature POC Glucose 166 65 - 199 [place] mg/dL [facility] Comment: Supplemental ranges: <140 mg/dL before meals <180 mg/dL all other times of the day Specimen Anatomical Collection Method Collection Time Receive d Time (Source) Location / / Volume Laterality Blood specimen 07/10/2017 1:23 PM 017 1:23 (specimen) EST PM EST Yuan Webber MD POINT OF CARE TEST ORDERABLE S Performing Organization Address City/State/[place] [address] POCT Glucose (07/10/2017 11:52 AM EST) athologist Signature POC Glucose 157 65 - 199 [place] mg/dL [facility] Comment: Supplemental ranges: <140 mg/dL before meals <180 mg/dL all other times of the day Specimen Anatomical Collection Method Collection Time Receive d Time (Source) Location / / Volume Laterality Blood specimen 07/10/2017 11:52 7 (specimen) AM EST 11:52 AM EST Yuan Webber MD POINT OF CARE TEST ORDERABLE S Performing Organization Address City/State/ZIP Code Phon e Number [address] POCT Glucose (07/10/2017 11:01 AM EST) athologist Signature POC Glucose 158 65 - 199 [place] mg/dL [facility] Comment: Supplemental ranges: <140 mg/dL before meals <180 mg/dL all other times of the day Specimen Anatomical Collection Method Collection Time Receive d Time (Source) Location / / Volume Laterality Blood specimen 07/10/2017 11:01 7 (specimen) AM EST 11:01 AM EST Yuan Webber MD POINT OF CARE TEST ORDERABLE S Performing Organization Address City/State/ZIP Code Phon e Number [address] POCT Glucose (07/10/2017 9:54 AM EST) athologist Signature POC Glucose 160 65 - 199 [place] mg/dL [facility] Comment: Supplemental ranges: <140 mg/dL before meals <180 mg/dL all other times of the day Specimen Anatomical Collection Method Collection Time Receive d Time (Source) Location / / Volume Laterality Blood specimen 07/10/2017 9:54 AM 017 9:54 (specimen) EST AM EST Yuan Webber MD POINT OF CARE TEST ORDERABLE S Performing Organization Address City/State/ZIP Code Phon e Number [address] POCT Glucose (07/10/2017 8:58 AM EST) athologist Signature POC Glucose 183 65 - 199 [place] mg/dL [facility] Comment: Supplemental ranges: <140 mg/dL before meals <180 mg/dL all other times of the day Specimen Anatomical Collection Method Collection Time Receive d Time (Source) Location / / Volume Laterality Blood specimen 07/10/2017 8:58 AM 017 8:58 (specimen) EST AM EST Yuan Webber MD POINT OF CARE TEST ORDERABLE S Performing Organization Address City/State/[place] [address] POCT Glucose (07/10/2017 8:01 AM EST) athologist Signature POC Glucose 173 65 - 199 [place] mg/dL [facility] Comment: Supplemental ranges: <140 mg/dL before meals <180 mg/dL all other times of the day Specimen Anatomical Collection Method Collection Time Receive d Time (Source) Location / / Volume Laterality Blood specimen 07/10/2017 8:01 AM 017 8:01 (specimen) EST AM EST Yuan Webber MD POINT OF CARE TEST ORDERABLE S Performing Organization Address City/[facility]/ZIP Code Phon e Number [address] POCT Glucose (07/10/2017 7:05 AM EST) P athologist Signature POC Glucose 166 65 - 199 [facility] mg/dL [facility] Comment: Supplemental ranges: <140 mg/dL before meals <180 mg/dL all other times of the day Specimen Anatomical Collection Method Collection Time Receive d Time (Source) Location / / Volume Laterality Blood specimen 07/10/2017 7:05 AM 017 7:05 (specimen) EST AM EST Yuan Webber MD POINT OF CARE TEST ORDERABLE S Performing Organization Address City/[facility]/ZIP Code Phon e Number [address] POCT Glucose (07/10/2017 6:00 AM EST) P athologist Signature POC Glucose 162 65 - 199 [facility] mg/dL [facility] Comment: Supplemental ranges: <140 mg/dL before meals <180 mg/dL all other times of the day Specimen Anatomical Collection Method Collection Time Receive d Time (Source) Location / / Volume Laterality Blood specimen 07/10/2017 6:00 AM 017 6:00 (specimen) EST AM EST Yuan Webber MD POINT OF CARE TEST ORDERABLE S Performing Organization Address City/State/ZIP Code Phon e Number [address] (ABNORMAL) Differential, Automated (07/10/2017 4:28 AM EST) [facility] gist Method Time Signature Neutrophils % 87.9 % [facility] Neutr Abs (ANC) 10.70 (H) 1.70 - [facility] 6.10 [facility] x10(3)/[facility] L LABORATORY Lymphocytes % 3.9 % [facility] Lymphocytes Abs 0.5 (L) 0.9 - 3.2 [facility] x10(3)/[facility] LABORATORY Monocytes % 7.0 % [facility] Monocyte Abs 0.8 0.3 - 0.9 [facility] x10(3)/[facility] LABORATORY Eosinophils % 0.3 % [facility] Eosinophils Abs 0.0 0.0 - 0.4 [facility] x10(3)/[facility] LABORATORY Basophils % 0.2 % [facility] Basophils Abs 0.0 0.0 - 0.1 [facility] x10(3)/[facility] LABORATORY Immature Gran % 0.70 % [place] [...] Abs 0.08 (H) 0.00 - 0.04 x10(3)/[facility] LABORATORY Specimen Anatomical Collection Method Collection Time Receive d Time (Source) Location / / Volume Laterality Blood specimen 07/10/2017 4:28 AM 017 4:36 (specimen) EST AM EST Resulting Agency Comment Spec In Lab Yuan Webber MD HEMATOLOGY ORDERABLES Performing Organization Address City/State/[place] [address] (ABNORMAL) Hemogram (07/10/2017 4:28 AM EST) Analysis Performed At Patho logist Time Signature WBC 12.2 (H) 4.0 - 9.5 [facility] x10(3)/[facility] LABORATORY RBC 3.31 (L) 4.58 - [facility] 5.54 [facility] x10(6)/[facility] LABORATORY Hemoglobin 9.8 (L) 13.7 - [facility] 16.5 gm/dL [facility] Hematocrit 30.0 (L) 40.5 - [place] 48.5 % [facility] MCV 90.6 82.9 - [place] 93.1 [facility] LABORATORY MCH 29.6 27.5 - [place] 32.1 pg [facility] MCHC 32.7 32.0 - [place] 35.7 gm/dL [facility] Platelets 135 (L) 145 - 357 [facility] x10(3)/[facility] LABORATORY RDWSD 50.8 (H) 36.0 - [place] 45.0 [facility] LABORATORY RDWCV 15.4 (H) 11.4 - [place] 13.8 % [facility] MPV 10.0 7.6 - 12.9 [facility] LABORATORY nRBC % Auto 0.0 % [facility] nRBC Abs Auto 0.000 0.000 - [place] 0.000 [facility] x10(3)/[facility] LABORATORY Specimen Anatomical Collection Method Collection Time Receive d Time (Source) Location / / Volume Laterality Blood specimen 07/10/2017 4:28 AM 017 4:36 (specimen) EST AM EST Resulting Agency Comment Spec In Lab Yuan Webber MD HEMATOLOGY ORDERABLES Performing Organization Address City/State/[place] [address] (ABNORMAL) Basic Metabolic Panel (non-fasting) (07/10/2017 4:28 AM EST) P athologist Signature Glucose Lvl 178 65 - 199 [facility] mg/dL [facility] Comment: Diabetes: >=200 mg/dL plus symp toms BUN 20 10 - 20 mg/dL [facility] Creatinine 1.19 0.80 - 1.50 mg/dL [place] [...] estions. Chloride 107 98 - 107 mmol/L [facility] CO2 21 (L) 22 - 31 mmol/L [facility] Anion Gap 15 5 - 15 mmol/L [facility] Calcium 7.4 (L) 8.5 - 10.5 mg/dL [facility] Estimated GFR 60 >=60 [facility] Comment: The reported eGFR should be multiplied b y 1.2 for patients. The MDRD is not an appropriate measure o f renal function for patients with body mass extremes or in patients with acute kidney failure. http://[employer]/DHnkdep http://[employer]/DHMCnkf Specimen Anatomical Collection Method Collection Time Receive d Time (Source) Location / / Volume Laterality Blood specimen 07/10/2017 4:28 AM 017 4:36 (specimen) EST AM EST Resulting Agency Comment Spec In Lab Yuan Webber MD CHEMISTRY ORDERABLES Performing Organization Address City/[facility]/ZIP Code Phon e Number [address] POCT Glucose (07/10/2017 4:26 AM EST) athologist Signature POC Glucose 176 65 - 199 [facility] mg/dL [facility] Comment: Supplemental ranges: <140 mg/dL before meals <180 mg/dL all other times of the day Specimen Anatomical Collection Method Collection Time Receive d Time (Source) Location / / Volume Laterality Blood specimen 07/10/2017 4:26 AM 017 4:26 (specimen) EST AM EST Yuan Webber MD POINT OF CARE TEST ORDERABLE S Performing Organization Address City/[facility]/[place] [address] (ABNORMAL) POCT Glucose (07/10/2017 3:06 AM EST) athologist Signature POC Glucose 204 (H) 65 - 199 [facility] Comment: Supplemental ranges: <140 mg/dL before meals <180 mg/dL all other times of the day Specimen Anatomical Collection Method Collection Time Receive d Time (Source) Location / / Volume Laterality Blood specimen 07/10/2017 3:06 AM 017 3:06 (specimen) EST AM EST Yuan Webber MD POINT OF CARE TEST ORDERABLE S Performing Organization Address City/State/[place] [address] (ABNORMAL) POCT Glucose (07/10/2017 2:10 AM EST) P athologist Signature POC Glucose 203 (H) 65 - 199 [place] mg/dL [facility] Comment: Supplemental ranges: <140 mg/dL before meals <180 mg/dL all other times of the day Specimen Anatomical Collection Method Collection Time Receive d Time (Source) Location / / Volume Laterality Blood specimen 07/10/2017 2:10 AM 017 2:10 (specimen) EST AM EST Yuan Webber MD POINT OF CARE TEST ORDERABLE S Performing Organization Address City/State/[place] [address] POCT Glucose (07/10/2017 1:09 AM EST) P athologist Signature POC Glucose 196 65 - 199 [place] mg/dL [facility] Comment: Supplemental ranges: <140 mg/dL before meals <180 mg/dL all other times of the day Specimen Anatomical Collection Method Collection Time Receive d Time (Source) Location / / Volume Laterality Blood specimen 07/10/2017 1:09 AM 017 1:09 (specimen) EST AM EST Yuan Webber MD POINT OF CARE TEST ORDERABLE S Performing Organization Address City/State/[place] [address] POCT Glucose (07/10/2017 12:10 AM EST) P athologist Signature POC Glucose 173 65 - 199 [place] mg/dL [facility] Comment: Supplemental ranges: <140 mg/dL before meals <180 mg/dL all other times of the day Specimen Anatomical Collection Method Collection Time Receive d Time (Source) Location / / Volume Laterality Blood specimen 07/10/2017 12:10 7 (specimen) AM EST 12:10 AM EST Yuan Webber MD POINT OF CARE TEST ORDERABLE S Performing Organization Address City/State/[place] [address] POCT Glucose (07/09/2017 11:01 PM EST) P athologist Signature POC Glucose 140 65 - 199 [place] mg/dL [facility] Comment: Supplemental ranges: <140 mg/dL before meals <180 mg/dL all other times of the day Specimen Anatomical Collection Method Collection Time Receive d Time (Source) Location / / Volume Laterality Blood specimen 07/09/2017 11:01 7 (specimen) PM EST 11:01 PM EST Yuan Webber MD POINT OF CARE TEST ORDERABLE S Performing Organization Address City/State/[place] [address] POCT Glucose (07/09/2017 10:05 PM EST) athologist Signature POC Glucose 144 65 - 199 [place] mg/dL [facility] Comment: Supplemental ranges: <140 mg/dL before meals <180 mg/dL all other times of the day Specimen Anatomical Collection Method Collection Time Receive d Time (Source) Location / / Volume Laterality Blood specimen 07/09/2017 10:05 7 (specimen) PM EST 10:05 PM EST Yuan Webber MD POINT OF CARE TEST ORDERABLE S Performing Organization Address City/State/ZIP Code Phon e Number [address] POCT Glucose (07/09/2017 9:31 PM EST) athologist Signature POC Glucose 121 65 - 199 [facility] SU mg/dL [facility] Comment: Supplemental ranges: <140 mg/dL before meals <180 mg/dL all other times of the day Specimen Anatomical Collection Method Collection Time Receive d Time (Source) Location / / Volume Laterality Blood specimen 07/09/2017 9:31 PM 017 9:31 (specimen) EST PM EST Yuan Webber MD POINT OF CARE TEST ORDERABLE S Performing Organization Address City/State/ZIP Code Phon e Number [address] POCT Glucose (07/09/2017 9:03 PM EST) athologist Signature POC Glucose 98 65 - 199 [place] mg/dL [facility] Comment: Supplemental ranges: <140 mg/dL before meals <180 mg/dL all other times of the day Specimen Anatomical Collection Method Collection Time Receive d Time (Source) Location / / Volume Laterality Blood specimen 07/09/2017 9:03 PM 017 9:03 (specimen) EST PM EST Yuan Webber MD POINT OF CARE TEST ORDERABLE S Performing Organization Address City/State/ZIP Code Phon e Number [address] POCT Glucose (07/09/2017 8:09 PM EST) athologist Signature POC Glucose 117 65 - 199 [place] mg/dL [facility] Comment: Supplemental ranges: <140 mg/dL before meals <180 mg/dL all other times of the day Specimen Anatomical Collection Method Collection Time Receive d Time (Source) Location / / Volume Laterality Blood specimen 07/09/2017 8:09 PM 017 8:09 (specimen) EST PM EST Yuan Webber MD POINT OF CARE TEST ORDERABLE S Performing Organization Address City/State/[place] [address] POCT Glucose (07/09/2017 5:40 PM EST) athologist Signature POC Glucose 155 65 - 199 [place] mg/dL [facility] Comment: Supplemental ranges: <140 mg/dL before meals <180 mg/dL all other times of the day Specimen Anatomical Collection Method Collection Time Receive d Time (Source) Location / / Volume Laterality Blood specimen 07/09/2017 5:40 PM 017 5:40 (specimen) EST PM EST Yuan Webber MD POINT OF CARE TEST ORDERABLE S Performing Organization Address City/[facility]/ZIP Code Phon e Number [address] POCT Glucose (07/09/2017 4:24 PM EST) athologist Signature POC Glucose 164 65 - 199 [place] mg/dL [facility] Comment: Supplemental ranges: <140 mg/dL before meals <180 mg/dL all other times of the day Specimen Anatomical Collection Method Collection Time Receive d Time (Source) Location / / Volume Laterality Blood specimen 07/09/2017 4:24 PM 017 4:24 (specimen) EST PM EST Yuan Webber MD POINT OF CARE TEST ORDERABLE S Performing Organization Address City/[facility]/ZIP Code Phon e Number [address] POCT Glucose (07/09/2017 3:19 PM EST) athologist Signature POC Glucose 166 65 - 199 [place] mg/dL [facility] Comment: Supplemental ranges: <140 mg/dL before meals <180 mg/dL all other times of the day Specimen Anatomical Collection Method Collection Time Receive d Time (Source) Location / / Volume Laterality Blood specimen 07/09/2017 3:19 PM 017 3:19 (specimen) EST PM EST Yuan Webber MD POINT OF CARE TEST ORDERABLE S Performing Organization Address City/State/ZIP Code Phon e Number [address] POCT Glucose (07/09/2017 2:26 PM EST) athologist Signature POC Glucose 179 65 - 199 [place] mg/dL [facility] Comment: Supplemental ranges: <140 mg/dL before meals <180 mg/dL all other times of the day Specimen Anatomical Collection Method Collection Time Receive d Time (Source) Location / / Volume Laterality Blood specimen 07/09/2017 2:26 PM 017 2:26 (specimen) EST PM EST Yuan Webber MD POINT OF CARE TEST ORDERABLE S Performing Organization Address City/[facility]/ZIP Code Phon e Number [address] (ABNORMAL) POCT Glucose (07/09/2017 1:29 PM EST) P athologist Signature POC Glucose 210 (H) 65 - 199 [place] mg/dL [facility] Comment: Supplemental ranges: <140 mg/dL before meals <180 mg/dL all other times of the day Specimen Anatomical Collection Method Collection Time Receive d Time (Source) Location / / Volume Laterality Blood specimen 07/09/2017 1:29 PM 017 1:29 (specimen) EST PM EST Yuan Webber MD POINT OF CARE TEST ORDERABLE S Performing Organization Address City/[facility]/[place] [address] POCT Glucose (07/09/2017 12:20 PM EST) P athologist Signature POC Glucose 172 65 - 199 [place] mg/dL [facility] Comment: Supplemental ranges: <140 mg/dL before meals <180 mg/dL all other times of the day Specimen Anatomical Collection Method Collection Time Receive d Time (Source) Location / / Volume Laterality Blood specimen 07/09/2017 12:20 7 (specimen) PM EST 12:20 PM EST Yuan Webber MD POINT OF CARE TEST ORDERABLE S Performing Organization Address City/State/[place] [address] POCT Glucose (07/09/2017 11:24 AM EST) P athologist Signature POC Glucose 156 65 - 199 [facility] mg/dL [facility] Comment: Supplemental ranges: <140 mg/dL before meals <180 mg/dL all other times of the day Specimen Anatomical Collection Method Collection Time Receive d Time (Source) Location / / Volume Laterality Blood specimen 07/09/2017 11:24 7 (specimen) AM EST 11:24 AM EST Yuan Webber MD POINT OF CARE TEST ORDERABLE S Performing Organization Address City/State/ZIP Code Phon e Number [address] POCT Glucose (07/09/2017 11:11 AM EST) P athologist Signature POC Glucose 172 65 - 199 [place] mg/dL [facility] Comment: Supplemental ranges: <140 mg/dL before meals <180 mg/dL all other times of the day Specimen Anatomical Collection Method Collection Time Receive d Time (Source) Location / / Volume Laterality Blood specimen 07/09/2017 11:11 7 (specimen) AM EST 11:11 AM EST Yuan Webber MD POINT OF CARE TEST ORDERABLE S Performing Organization Address City/[facility]/ZIP Code Phon e Number [address] POCT Glucose (07/09/2017 10:08 AM EST) P athologist Signature POC Glucose 176 65 - 199 [place] mg/dL [facility] Comment: Supplemental ranges: <140 mg/dL before meals <180 mg/dL all other times of the day Specimen Anatomical Collection Method Collection Time Receive d Time (Source) Location / / Volume Laterality Blood specimen 07/09/2017 10:08 7 (specimen) AM EST 10:08 AM EST Yuan Webber MD POINT OF CARE TEST ORDERABLE S Performing Organization Address City/State/ZIP Code Phon e Number [address] POCT Glucose (07/09/2017 8:02 AM EST) P athologist Signature POC Glucose 178 65 - 199 [place] mg/dL [facility] Comment: Supplemental ranges: <140 mg/dL before meals <180 mg/dL all other times of the day Specimen Anatomical Collection Method Collection Time Receive d Time (Source) Location / / Volume Laterality Blood specimen 07/09/2017 8:02 AM 017 8:02 (specimen) EST AM EST Yuan Webber MD POINT OF CARE TEST ORDERABLE S Performing Organization Address City/State/[place] [address] (ABNORMAL) BLOOD GAS 2 ARTERIAL (07/09/2017 5:37 AM EST) Analysis Performed At Patho logist Time Signature pH Art 7.36 7.35 - [facility] 7.45 [facility] pCO2 Art 38 35 - 45 [facility] mmHg [facility] pO2 Art 79 (L) 85 - 104 [facility] LABORATORY HCO3 Art 20.9 20.0 - [facility] 26.0 [facility] mmol/L [facility] BE Art -4.6 (L) -3.0 - 3.0 [facility] mmol/L [facility] Hgb Blood Gas 10.5 (L) 13.7 - [facility] 16.5 gm/dL [facility] O2HB Art 93.8 (L) 94.0 - [facility] 97.0 % [facility] COHB Art 0.3 % [facility] Comment: Nonsmokers: 0.5-1.5% COHB Smokers: Variable, but usually less than 10% Toxic: 20-30% COHB Lethal: Greater than 60% COHB METHB Art 0.6 <=1.5 % [facility] Na Whole Blood 141 135 - 145 mmol/L [facility] K Whole Blood 4.5 3.5 - 5.0 mmol/L [facility] Comment: Please note: Patients with WBC >100,000 may have falsely elevated Potassium levels. Contact the Clinical Chemistry L aboratory if there are any questions. ICa Whole Blood 1.01 (L) 1.15 - 1.33 mmol/L [facility] Comment: Note: ??Total bilirubin higher than 20 m g/dL may lead to falsely low ionized calcium. CL Whole Blood 113 (H) 98 - 107 mmol/L [facility] Gluc Whole Bld 175 65 - 199 mg/dL [facility] Comment: Diabetes: >=200 mg/dL plus symp toms. Lactate WB 1.0 0.5 - 2.2 mmol/L [facility] FIO2 Art 40 % [facility] PF Ratio Art 198 [facility] Specimen Anatomical Collection Method Collection Time Receive d Time (Source) Location / / Volume Laterality Blood specimen 07/09/2017 5:37 AM 017 5:37 (specimen) EST AM EST Yuan Webber MD CHEMISTRY ORDERABLES Performing Organization Address City/[facility]/ZIP Code Phon e Number [address] POCT Glucose (07/09/2017 3:27 AM EST) athologist Signature POC Glucose 192 65 - 199 [facility]dL [facility] Comment: Supplemental ranges: <140 mg/dL before meals <180 mg/dL all other times of the day Specimen Anatomical Collection Method Collection Time Receive d Time (Source) Location / / Volume Laterality Blood specimen 07/09/2017 3:27 AM 017 3:27 (specimen) EST AM EST Yuan Webber MD POINT OF CARE TEST ORDERABLE S Performing Organization Address City/[facility]/ZIP Code Phon e Number [address] (ABNORMAL) Basic Metabolic Panel (non-fasting) (07/09/2017 2:30 AM EST) athologist Signature Glucose Lvl 179 65 - 199 [facility] mg/dL [facility] Comment: Diabetes: >=200 mg/dL plus symp toms BUN 17 10 - 20 mg/dL [facility] Creatinine 1.34 0.80 - 1.50 mg/dL [facility] Sodium 144 135 - 145 mmol/L [facility] Potassium Not Perf 3.5 - 5.0 mmol/L [facility] Comment: Duplicate order Please note: ??Patients with WBC >100,00 0 may have falsely elevated Potassium levels. ??For accurate Potassium quantif ication in these patients send serum separator tube (gold top) for subsequent determinations. ??Contact the Clinical Chemistry Laboratory if there are any qu estions. Chloride 111 (H) 98 - 107 mmol/L [facility] CO2 21 (L) 22 - 31 mmol/L [facility] Anion Gap 12 5 - 15 mmol/L [facility] Calcium 7.1 (L) 8.5 - 10.5 mg/dL [facility] Comment: result rechecked-JLK Estimated GFR 53 (L) >=60 [facility] Comment: The reported eGFR should be multiplied b y 1.2 for patients. The MDRD is not an appropriate measure o f renal function for patients with body mass extremes or in patients with acute kidney failure. http://[employer]/DHnkdep http://[employer]/DHMCnkf Specimen Anatomical Collection Method Collection Time Receive d Time (Source) Location / / Volume Laterality Blood specimen Venous Draw / 07/09/2017 2:30 AM 2016 2:42 (specimen) Unknown EST AM EST Resulting Agency Comment Spec In Lab Yuan Webber MD CHEMISTRY ORDERABLES Performing Organization Address City/State/[place] [address] (ABNORMAL) Potassium (07/09/2017 2:30 AM EST) P athologist Signature Potassium 5.1 (H) 3.5 - 5.0 [facility] mmol/L [facility] Comment: Please note: ??Patients [...] Code [place] [address] (ABNORMAL) Hemogram (07/09/2017 2:30 AM EST) Analysis Performed At Patho logist Time Signature WBC 12.5 (H) 4.0 - 9.5 [place] [facility] x10(3)/[facility] LABORATORY RBC 3.38 (L) 4.58 - [place] 5.54 [facility] x10(6)/[facility] LABORATORY Hemoglobin 10.1 (L) 13.7 - [facility] 16.5 gm/dL [facility] Hematocrit 30.3 (L) 40.5 - [facility] 48.5 % [facility] MCV 89.6 82.9 - [facility] 93.1 [facility] LABORATORY MCH 29.9 27.5 - [facility] 32.1 pg [facility] MCHC 33.3 32.0 - [place] [facility] 35.7 gm/dL [facility] Platelets 127 (L) 145 - 357 [facility] x10(3)/[facility] LABORATORY RDWSD 49.3 (H) 36.0 - [facility] 45.0 [facility] LABORATORY RDWCV 15.2 (H) 11.4 - [facility] 13.8 % [facility] MPV 9.9 7.6 - 12.9 [facility] LABORATORY nRBC % Auto 0.0 % [facility] nRBC Abs Auto 0.000 0.000 - [facility] 0.000 [facility] x10(3)/[facility] LABORATORY Specimen Anatomical Collection Method Collection Time Receive d Time (Source) Location / / Volume Laterality Blood specimen 07/09/2017 2:30 AM 017 2:41 (specimen) EST AM EST Resulting Agency Comment Spec In Lab Yuan Webber MD HEMATOLOGY ORDERABLES Performing Organization Address City/State/[place] [address] [facility] [address] POCT Glucose (07/09/2017 2:10 AM EST) P athologist Signature POC Glucose 169 65 - 199 [facility] mg/dL [facility] Comment: Supplemental ranges: <140 mg/dL before meals <180 mg/dL all other times of the day Specimen Anatomical Collection Method Collection Time Receive d Time (Source) Location / / Volume Laterality Blood specimen 07/09/2017 2:10 AM 017 2:10 (specimen) EST AM EST Yuan Webber MD POINT OF CARE TEST ORDERABLE S Performing Organization Address City/[facility]/[place] [address] POCT Glucose (07/09/2017 1:01 AM EST) P athologist Signature POC Glucose 173 65 - 199 [facility] mg/dL [facility] Comment: Supplemental ranges: <140 mg/dL before meals <180 mg/dL all other times of the day Specimen Anatomical Collection Method Collection Time Receive d Time (Source) Location / / Volume Laterality Blood specimen 07/09/2017 1:01 AM 017 1:01 (specimen) EST AM EST Yuan Webber MD POINT OF CARE TEST ORDERABLE S Performing Organization Address City/State/[place] [address] Blood culture (07/09/2017 12:40 AM EST) Patholo gist Method Time Signature Blood Culture No growth [place] [facility] at 5 days. [facility] Specimen Anatomical Collection Method Collection Time Receive d Time (Source) Location / / Volume Laterality Blood specimen STRUCTURE OF RIGHT 07/09/2017 12:40 3:58 (specimen) UPPER LIMB / AM EST AM EST Unknown Resulting Agency Comment Spec In Lab Yuan Webber MD MICROBIOLOGY - BLOOD ORDERAB LES Performing Organization Address City/State/[place] [address] Blood culture (07/09/2017 12:30 AM EST) Patholo gist Method Time Signature Blood Culture No growth [place] DAVIS at 5 days. [facility] Specimen Anatomical Collection Method Collection Time Receive d Time (Source) Location / / Volume Laterality Blood specimen STRUCTURE OF LEFT 07/09/2017 12:30 06/25 3:59 (specimen) UPPER LIMB / AM EST AM EST Unknown Resulting Agency Comment Spec In Lab Yuan Webber MD MICROBIOLOGY - BLOOD ORDERAB LES Performing Organization Address City/[facility]/[place] [address] (ABNORMAL) Urinalysis Microscopic Exam (07/09/2017 12:05 AM EST) Analysis Performed At Patho logist Time Signature RBC UA 32 (H) 0 - 3 /HPF [facility] WBC UA 5 (H) 0 - 3 /HPF [facility] Squam Epith UA <1 <=4 /HPF [facility] Hyaline Cast 17 (H) 0 - 2 /LPF [facility] Gran Cast UA 1 (H) <=0 /LPF [facility] Uric Ac Bianca Rare (A) None /HPF [facility] Specimen (Source) Anatomical Collection Method Collection Time Re ceived Time Location / / Volume Laterality Urine specimen 07/09/2017 12:05 7 obtained via AM EST 12:39 AM EST indwelling urinary catheter (specimen) Resulting Agency Comment Spec In Lab Yuan Webber MD URINE ORDERABLES Performing Organization Address City/[facility]/[place] [address] (ABNORMAL) Urinalysis with reflex Culture (07/09/2017 12:05 AM EST) Patholo gist Method Time Signature Glucose UA Negative Negative [facility] Protein UA 30 (A) Negative [facility] mg/dL [facility] Bilirubin UA Negative Negative [facility] mg/dL [facility] Comment: Clinical correlation required for positi ve Urine Bilirubin results as false positive may occur with some drugs and d rug related products. If a false positive is suspected a serum total bili yeager should be considered if clinically indicated. Urobilinogen UA Normal Normal mg/dL [facility] pH UA 5.0 5.0 - 8.0 [facility] Blood UA Moderate (A) Negative mg/dL [facility] Ketones UA Negative Negative mg/dL [facility] Nitrite UA Negative Negative [facility] Leukocytes UA Negative Negative [facility] LABORATORY Appearance UA Hazy (A) Clear [facility] Spec [place] UA 1.025 1.002 - 1.030 [facility] Color UA Yellow Yellow [facility] Culture Reflexed No [facility] Specimen (Source) Anatomical Collection Method Collection Time Re ceived Time Location / / Volume Laterality Urine specimen 07/09/2017 12:05 7 obtained via AM EST 12:39 AM EST indwelling urinary catheter (specimen) Resulting Agency Comment Spec In Lab Yuan Webber MD URINE ORDERABLES Performing Organization Address City/[facility]/ZIP [facility] Phon e Number [address] POCT Glucose (07/08/2017 11:01 PM EST) athologist Signature POC Glucose 191 65 - 199 [facility] mg/dL [facility] Comment: Supplemental ranges: <140 mg/dL before meals <180 mg/dL all other times of the day Specimen Anatomical Collection Method Collection Time Receive d Time (Source) Location / / Volume Laterality Blood specimen 07/08/2017 11:01 7 (specimen) PM EST 11:01 PM EST Yuan Webber MD POINT OF CARE TEST ORDERABLE S Performing Organization Address City/State/ZIP Code Phon e Number [address] POCT Glucose (07/08/2017 10:04 PM EST) athologist Signature POC Glucose 198 65 - 199 [facility] mg/dL [facility] Comment: Supplemental ranges: <140 mg/dL before meals <180 mg/dL all other times of the day Specimen Anatomical Collection Method Collection Time Receive d Time (Source) Location / / Volume Laterality Blood specimen 07/08/2017 10:04 7 (specimen) PM EST 10:04 PM EST Yuan Webber MD POINT OF CARE TEST ORDERABLE S Performing Organization Address City/State/ZIP Code Phon e Number [address] Prepare Albumin 5% in 250 mL (07/08/2017 8:49 PM EST) athologist Signature Dispensed? Yes [facility] Specimen Anatomical Collection Method Collection Time Receive d Time (Source) Location / / Volume Laterality Blood specimen No Charge / 07/08/2017 8:49 PM 017 8:51 (specimen) Unknown EST PM EST Resulting Agency Comment Spec In Lab [facility] ORDERABLES Performing Organization Address City/[facility]/[place] [address] POCT Glucose (07/08/2017 8:28 PM EST) athologist Signature POC Glucose 195 65 - 199 [facility] mg/dL [facility] Comment: Supplemental ranges: <140 mg/dL before meals <180 mg/dL all other times of the day Specimen Anatomical Collection Method Collection Time Receive d Time (Source) Location / / Volume Laterality Blood specimen 07/08/2017 8:28 PM 017 8:28 (specimen) EST PM EST Yuan Webber MD POINT OF CARE TEST ORDERABLE S Performing Organization Address City/[facility]/[place] [address] (ABNORMAL) POCT Glucose (07/08/2017 7:13 PM EST) athologist Signature POC Glucose 220 (H) 65 - 199 [place] [facility] mg/dL [facility] Comment: Supplemental ranges: <140 mg/dL before meals <180 mg/dL all other times of the day Specimen Anatomical Collection Method Collection Time Receive d Time (Source) Location / / Volume Laterality Blood specimen 07/08/2017 7:13 PM 017 7:13 (specimen) EST PM EST Yuan Webber MD POINT OF CARE TEST ORDERABLE S Performing Organization Address City/State/[place] [address] POCT Glucose (07/08/2017 5:04 PM EST) P athologist Signature POC Glucose 147 65 - 199 [facility] mg/dL [facility] Comment: Supplemental ranges: <140 mg/dL before meals <180 mg/dL all other times of the day Specimen Anatomical Collection Method Collection Time Receive d Time (Source) Location / / Volume Laterality Blood specimen 07/08/2017 5:04 PM 017 5:04 (specimen) EST PM EST Yuan Webber MD POINT OF CARE TEST ORDERABLE S Performing Organization Address City/State/ZIP Code Phon e Number [place] [id number] (ABNORMAL) BLOOD GAS 2 ARTERIAL (07/08/2017 4:13 PM EST) Analysis Performed At Patho logist Time Signature pH Art 7.38 7.35 - [facility] 7.45 [facility] pCO2 Art 36 35 - 45 [facility] LABORATORY pO2 Art 91 85 - 104 [facility]ORY HCO3 Art 20.9 20.0 - [facility] 26.0 [facility] mmol/L [facility] BE Art -4.2 (L) -3.0 - 3.0 [facility] mmol/L [facility] Hgb Blood Gas 11.7 (L) 13.7 - [facility] 16.5 gm/dL [facility] O2HB Art 95.1 94.0 - [facility] 97.0 % [facility] COHB Art 0.6 % [facility] Comment: Nonsmokers: 0.5-1.5% COHB Smokers: Variable, but usually less than 10% Toxic: 20-30% COHB Lethal: Greater than 60% COHB METHB Art 0.6 <=1.5 % [facility] Na Whole Blood 139 135 - 145 mmol/L [facility] K Whole Blood 4.2 3.5 - 5.0 mmol/L [facility] Comment: Please note: Patients with WBC >100,000 may have falsely elevated Potassium levels. Contact the Clinical Chemistry L aboratory if there are any questions. ICa Whole Blood 1.05 (L) 1.15 - 1.33 mmol/L [facility] Comment: Note: ??Total bilirubin higher than 20 m g/dL may lead to falsely low ionized calcium. CL Whole Blood 110 (H) 98 - 107 mmol/L [facility] Gluc Whole Bld 155 65 - 199 mg/dL [facility] Comment: Diabetes: >=200 mg/dL plus symp toms. Lactate WB 1.4 0.5 - 2.2 mmol/L [facility] FIO2 Art 40 % [facility] PF Ratio Art 228 [facility] Specimen Anatomical Collection Method Collection Time Receive d Time (Source) Location / / Volume Laterality Blood specimen 07/08/2017 4:13 PM 017 4:13 (specimen) EST PM EST Yuan Webber MD CHEMISTRY ORDERABLES Performing Organization Address City/State/ZIP Code Phon e Number [address] POCT Glucose (07/08/2017 4:01 PM EST) athologist Signature POC Glucose 148 65 - 199 [facility] mg/dL [facility] Comment: Supplemental ranges: <140 mg/dL before meals <180 mg/dL all other times of the day Specimen Anatomical Collection Method Collection Time Receive d Time (Source) Location / / Volume Laterality Blood specimen 07/08/2017 4:01 PM 017 4:01 (specimen) EST PM EST Yuan Webber MD POINT OF CARE TEST ORDERABLE S Performing Organization Address City/State/[place] [address] POCT Glucose (07/08/2017 3:21 PM EST) P athologist Signature POC Glucose 118 65 - 199 [facility] mg/dL [facility] Comment: Supplemental ranges: <140 mg/dL before meals <180 mg/dL all other times of the day Specimen Anatomical Collection Method Collection Time Receive d Time (Source) Location / / Volume Laterality Blood specimen 07/08/2017 3:21 PM 017 3:21 (specimen) EST PM EST Yuan Webber MD POINT OF CARE TEST ORDERABLE S Performing Organization Address City/State/ZIP Code Phon e Number [address] POCT Glucose (07/08/2017 2:01 PM EST) athologist Signature POC Glucose 129 65 - 199 [place] [facility] mg/dL [facility] Comment: Supplemental ranges: <140 mg/dL before meals <180 mg/dL all other times of the day Specimen Anatomical Collection Method Collection Time Receive d Time (Source) Location / / Volume Laterality Blood specimen 07/08/2017 2:01 PM 017 2:01 (specimen) EST PM EST Yuan Webber MD POINT OF CARE TEST ORDERABLE S Performing Organization Address City/State/[place] [address] POCT Glucose (07/08/2017 11:53 AM EST) athologist Signature POC Glucose 156 65 - 199 [place] [facility] mg/dL [facility] Comment: Supplemental ranges: <140 mg/dL before meals <180 mg/dL all other times of the day Specimen Anatomical Collection Method Collection Time Receive d Time (Source) Location / / Volume Laterality Blood specimen 07/08/2017 11:53 7 (specimen) AM EST 11:53 AM EST Yuan Webber MD POINT OF CARE TEST ORDERABLE S Performing Organization Address City/State/ZIP Code Phon e Number [address] POCT Glucose (07/08/2017 11:04 AM EST) athologist Signature POC Glucose 181 65 - 199 [facility] mg/dL [facility] Comment: Supplemental ranges: <140 mg/dL before meals <180 mg/dL all other times of the day Specimen Anatomical Collection Method Collection Time Receive d Time (Source) Location / / Volume Laterality Blood specimen 07/08/2017 11:04 07/08/201 7 (specimen) AM EST 11:04 AM EST Yuan Webber MD POINT OF CARE TEST ORDERABLE S Performing Organization Address City/[facility]/[place] [address] (ABNORMAL) POCT Glucose (07/08/2017 9:24 AM EST) P athologist Signature POC Glucose 203 (H) 65 - 199 [facility] mg/dL [facility] Comment: Supplemental ranges: <140 mg/dL before meals <180 mg/dL all other times of the day Specimen Anatomical Collection Method Collection Time Receive d Time (Source) Location / / Volume Laterality Blood specimen 07/08/2017 9:24 AM 017 9:24 (specimen) EST AM EST Yuan Webber MD POINT OF CARE TEST ORDERABLE S Performing Organization Address [facility] [place] [address] APTT (07/08/2017 8:40 AM EST) P athologist Signature PTT 33 25 - 35 sec [facility] Comment: The recommended therapeutic range for fu ll dose, unfractionated heparin at [facility] is 80 ? [...] Webber MD HEMATOLOGY ORDERABLES Performing Organization Address City/[facility]/[place] [address] (ABNORMAL) Prothrombin Time (07/08/2017 8:40 AM EST) P athologist Signature PT 15.6 (H) 11.8 - 14.0 [employer] [...] Webber MD HEMATOLOGY ORDERABLES Performing Organization Address City/[facility]/[place] [address] (ABNORMAL) POCT Glucose (07/08/2017 7:38 AM EST) P athologist Signature POC Glucose 232 (H) 65 - 199 [facility] mg/dL [facility] Comment: Supplemental ranges: <140 mg/dL before meals <180 mg/dL all other times of the day Specimen Anatomical Collection Method Collection Time Receive d Time (Source) Location / / Volume Laterality Blood specimen 07/08/2017 7:38 AM 017 7:38 (specimen) EST AM EST Yuan Webber MD POINT OF CARE TEST ORDERABLE S Performing Organization Address City/State/[place] [address] (ABNORMAL) POCT Glucose (07/08/2017 7:07 AM EST) P athologist Signature POC Glucose 234 (H) 65 - 199 [facility] mg/dL [facility] Comment: Supplemental ranges: <140 mg/dL before meals <180 mg/dL all other times of the day Specimen Anatomical Collection Method Collection Time Receive d Time (Source) Location / / Volume Laterality Blood specimen 07/08/2017 7:07 AM 017 7:07 (specimen) EST AM EST Yuan Webber MD POINT OF CARE TEST ORDERABLE S Performing Organization Address City/State/[place] [address] (ABNORMAL) POCT Glucose (07/08/2017 6:04 AM EST) athologist Signature POC Glucose 225 (H) 65 - 199 [facility] mg/dL [facility] Comment: Supplemental ranges: <140 mg/dL before meals <180 mg/dL all other times of the day Specimen Anatomical Collection Method Collection Time Receive d Time (Source) Location / / Volume Laterality Blood specimen 07/08/2017 6:04 AM 017 6:04 (specimen) EST AM EST Yuan Webber MD POINT OF CARE TEST ORDERABLE S Performing Organization Address City/[facility]/[place] [address] (ABNORMAL) POCT Glucose (07/08/2017 5:31 AM EST) athologist Signature POC Glucose 216 (H) 65 - 199 [facility] mg/dL [facility] Comment: Supplemental ranges: <140 mg/dL before meals <180 mg/dL all other times of the day Specimen Anatomical Collection Method Collection Time Receive d Time (Source) Location / / Volume Laterality Blood specimen 07/08/2017 5:31 AM 017 5:31 (specimen) EST AM EST Yuan Webber MD POINT OF CARE TEST ORDERABLE S Performing Organization Address City/[facility]/[place] [address] (ABNORMAL) POCT Glucose (07/08/2017 4:52 AM EST) athologist Signature POC Glucose 257 (H) 65 - 199 [facility] mg/dL [facility] Comment: Supplemental ranges: <140 mg/dL before meals <180 mg/dL all other times of the day Specimen Anatomical Collection Method Collection Time Receive d Time (Source) Location / / Volume Laterality Blood specimen 07/08/2017 4:52 AM 017 4:52 (specimen) EST AM EST Daphne Shahid MD POINT OF CARE TEST ORDERABLE S Performing Organization Address City/State/[place] [address] (ABNORMAL) BLOOD GAS 2 ARTERIAL (07/08/2017 4:04 AM EST) Analysis Performed At Patho logist Time Signature pH Art 7.30 (L) 7.35 - [facility] 7.45 [facility] pCO2 Art 41 35 - 45 [facility] mmHg [facility] pO2 Art 83 (L) 85 - 104 [facility] LABORATORY HCO3 Art 19.6 (L) 20.0 - [facility] 26.0 [facility] mmol/[facility] BE Art -6.8 (L) -3.0 - 3.0 [facility] mmol/L [facility] Hgb Blood Gas 12.2 (L) 13.7 - [facility] 16.5 gm/dL [facility] O2HB Art 93.5 (L) 94.0 - [facility] 97.0 % [facility] COHB Art 0.4 % [facility] Comment: Nonsmokers: 0.5-1.5% COHB Smokers: Variable, but usually less than 10% Toxic: 20-30% COHB Lethal: Greater than 60% COHB METHB Art 0.8 <=1.5 % [facility] Na Whole Blood 138 135 - 145 mmol/L [facility] K Whole Blood 4.4 3.5 - 5.0 mmol/L [facility] Comment: Please note: Patients with WBC >100,000 may have falsely elevated Potassium levels. Contact the Clinical Chemistry L aboratory if there are any questions. ICa Whole Blood 1.05 (L) 1.15 - 1.33 mmol/L [facility] Comment: Note: ??Total bilirubin higher than 20 m g/dL may lead to falsely low ionized calcium. CL Whole Blood 107 98 - 107 mmol/L [facility] Gluc Whole Bld 274 (H) 65 - 199 mg/dL [facility] Comment: Diabetes: >=200 mg/dL plus symp toms. Lactate WB 4.4 (Critical) 0.5 - 2.2 mmol/L [facility] Comment: Noted by instrumentation designer. FIO2 Art 40 % [facility] PF Ratio Art 208 [facility] Specimen Anatomical Collection Method Collection Time Receive d Time (Source) Location / / Volume Laterality Blood specimen 07/08/2017 4:04 AM 017 4:04 (specimen) EST AM EST Daphne Shahid MD CHEMISTRY ORDERABLES Performing Organization Address City/[facility]/ZIP Code Phon e Number [address] Scan, Peripheral Blood (07/08/2017 4:00 AM EST) P athologist Signature Plat Estimate Normal [facility] RBC Morphology Normal [facility] Specimen Anatomical Collection Method Collection Time Receive d Time (Source) Location / / Volume Laterality Blood specimen 07/08/2017 4:00 AM 017 4:09 (specimen) EST AM EST Resulting Agency Comment Spec In Lab Yuan Webber MD HEMATOLOGY ORDERABLES Performing Organization Address City/[facility]/[place] [address] (ABNORMAL) Differential, Automated (07/08/2017 4:00 AM EST) Patholo gist Method Time Signature Neutrophils % 85.4 % [facility] Neutr Abs (ANC) 16.07 (H) 1.70 - [facility] 6.10 [facility] x10(3)/[facility] L LABORATORY Lymphocytes % 3.5 % [facility] Lymphocytes Abs 0.6 (L) 0.9 - 3.2 [facility] x10(3)/[facility] LABORATORY Monocytes % 10.4 % [facility] Monocyte Abs 2.0 (H) 0.3 - 0.9 [facility] x10(3)/[facility] LABORATORY Eosinophils % 0.0 % [facility] Eosinophils Abs 0.0 0.0 - 0.4 [facility] x10(3)/[facility] LABORATORY Basophils % 0.1 % [facility] Basophils Abs 0.0 0.0 - 0.1 [facility] x10(3)/[facility] LABORATORY Immature Gran % 0.60 % [place] [...] Abs 0.12 (H) 0.00 - 0.04 x10(3)/[facility] LABORATORY Specimen Anatomical Collection Method Collection Time Receive d Time (Source) Location / / Volume Laterality Blood specimen 07/08/2017 4:00 AM 017 4:09 (specimen) EST AM EST Resulting Agency Comment Spec In Lab Yuan Webber MD HEMATOLOGY ORDERABLES Performing Organization Address City/State/[place] [address] (ABNORMAL) Hemogram (07/08/2017 4:00 AM EST) Analysis Performed At Patho logist Time Signature WBC 18.8 (H) 4.0 - 9.5 [facility] x10(3)/[facility] LABORATORY RBC 4.00 (L) 4.58 - [facility] 5.54 [facility] x10(6)/[facility] LABORATORY Hemoglobin 11.9 (L) 13.7 - [facility] 16.5 gm/dL [facility] Hematocrit 35.9 (L) 40.5 - [facility] 48.5 % [facility] MCV 89.8 82.9 - [facility] 93.1 [facility] LABORATORY MCH 29.8 27.5 - [facility] 32.1 pg [facility] MCHC 33.1 32.0 - [facility] 35.7 gm/dL [facility] Platelets 232 145 - 357 [facility] x10(3)/[facility] LABORATORY RDWSD 47.6 (H) 36.0 - [facility] 45.0 [facility] LABORATORY RDWCV 14.5 (H) 11.4 - [facility] 13.8 % [facility] MPV 9.5 7.6 - 12.9 [facility] LABORATORY nRBC % Auto 0.0 % [facility]ORY nRBC Abs Auto 0.000 0.000 - [facility] 0.000 [facility] x10(3)/[facility] LABORATORY Specimen Anatomical Collection Method Collection Time Receive d Time (Source) Location / / Volume Laterality Blood specimen 07/08/2017 4:00 AM 017 4:09 (specimen) EST AM EST Resulting Agency Comment Spec In Lab Yuan Webber MD HEMATOLOGY ORDERABLES Performing Organization Address City/[facility] [[email or web address]] [place] [address] (ABNORMAL) Electrolytes panel (07/08/2017 4:00 AM EST) P athologist Signature Sodium 139 135 - 145 [facility] mmol/[facility] Potassium 4.7 3.5 - 5.0 [facility] mmol/[facility]ORY Comment: result rechecked-JLK Please [...] 5 - 15 mmol/L [facility] Specimen Anatomical Collection Method Collection Time Receive d Time (Source) Location / / Volume Laterality Blood specimen 07/08/2017 4:00 AM 017 4:10 (specimen) EST AM EST Resulting Agency Comment Spec In Lab Yuan Webber MD CHEMISTRY ORDERABLES Performing Organization Address City/[facility] [place] [address] (ABNORMAL) Cardiac Enzymes (LEB/CGP) (07/08/2017 4:00 AM EST) athologist Signature Troponin-T 1.88 (H) 0.00 - [facility] 0.00 ng/mL [facility] Comment: The 99th percentile [...] additional sample may be indicated. Reference: Third Starr Definition of Myocardial Infarction. Journal of the [place] [employer] 2012;60:1581-98 CK, Total 413 (H) 0 - 200 unit/L [facility] Comment: result rechecked-JLK Specimen Anatomical Collection Method Collection Time Receive d Time (Source) Location / / Volume Laterality Blood specimen 07/08/2017 4:00 AM 017 4:09 (specimen) EST AM EST Resulting Agency Comment Spec In Lab Yuan Webber MD CHEMISTRY ORDERABLES Performing Organization Address City/State/[place] [address] (ABNORMAL) Glucose, fasting (07/08/2017 4:00 AM EST) athologist Signature Glucose 287 (H) 65 - 99 [facility] Fasting mg/dL [facility] Comment: ?Fasting* Glucose Interpretive [...] of Diabetes Mellitus, Position Statement from the [place] [employer]. ??Diabete s Care, Volume 33, Supplement 1, Jul 2009 Specimen Anatomical Collection Method Collection Time Receive d Time (Source) Location / / Volume Laterality Blood specimen 07/08/2017 4:00 AM 017 4:09 (specimen) EST AM EST Resulting Agency Comment Spec In Lab Yuan Webber MD CHEMISTRY ORDERABLES Performing Organization Address City/[facility] [place] [address] (ABNORMAL) Creatinine (07/08/2017 4:00 AM EST) Analysis Performed At [facility] Time Signature Creatinine 1.55 (H) 0.80 - [facility] 1.50 mg/dL [facility] Estimated GFR 44 (L) >=60 [facility] Comment: The reported eGFR should be multiplied b y 1.2 for patients. The MDRD is not an appropriate measure o f renal function for patients with body mass extremes or in patients with acute kidney failure. [email or web address] [email or web address]/DHMCnkf Specimen Anatomical Collection Method Collection Time Receive d Time (Source) Location / / Volume Laterality Blood specimen 07/08/2017 4:00 AM 017 4:09 (specimen) EST AM EST Resulting Agency Comment Spec In Lab Yuan Webber MD CHEMISTRY ORDERABLES Performing Organization Address [facility]/ZIP [facility] Phon e Number [address] BUN (07/08/2017 4:00 AM EST) athologist Signature BUN 16 10 - 20 [place] [facility] mg/dL [facility] Specimen Anatomical Collection Method Collection Time Receive d Time (Source) Location / / Volume Laterality Blood specimen 07/08/2017 4:00 AM 017 4:09 (specimen) EST AM EST Resulting Agency Comment Spec In Lab Yuan Webber MD CHEMISTRY ORDERABLES Performing Organization Address City/State/ZIP Code Phon e Number [address] (ABNORMAL) POCT Glucose (07/08/2017 3:00 AM EST) athologist Signature POC Glucose 273 (H) 65 - 199 [place] [facility] mg/dL [facility] Comment: Supplemental ranges: <140 mg/dL before meals <180 mg/dL all other times of the day Specimen Anatomical Collection Method Collection Time Receive d Time (Source) Location / / Volume Laterality Blood specimen 07/08/2017 3:00 AM 017 3:00 (specimen) EST AM EST Daphne Shahid MD POINT OF CARE TEST ORDERABLE S Performing Organization Address City/State/[place] [address] (ABNORMAL) POCT Glucose (07/08/2017 1:57 AM EST) athologist Signature POC Glucose 288 (H) 65 - 199 [facility] mg/dL [facility] Comment: Supplemental ranges: <140 mg/dL before meals <180 mg/dL all other times of the day Specimen Anatomical Collection Method Collection Time Receive d Time (Source) Location / / Volume Laterality Blood specimen 07/08/2017 1:57 AM 017 1:57 (specimen) EST AM EST Daphne Shahid MD POINT OF CARE TEST ORDERABLE S Performing Organization Address City/State/[place] [address] (ABNORMAL) POCT Glucose (07/08/2017 1:01 AM EST) athologist Signature POC Glucose 315 (H) 65 - 199 [facility] mg/dL [facility] Comment: Supplemental ranges: <140 mg/dL before meals <180 mg/dL all other times of the day Specimen Anatomical Collection Method Collection Time Receive d Time (Source) Location / / Volume Laterality Blood specimen 07/08/2017 1:01 AM 017 1:01 (specimen) EST AM EST Daphne Shahid MD POINT OF CARE TEST ORDERABLE S Performing Organization Address City/State/[place] [address] (ABNORMAL) BLOOD GAS 2 ARTERIAL (07/08/2017 12:09 AM EST) athologist Signature pH Art 7.26 7.35 - [facility] (Critical) 7.45 [facility] Comment: Noted by instrumentation designer. pCO2 Art 41 35 - 45 mmHg [facility] pO2 Art 96 85 - 104 mmHg [facility] HCO3 Art 17.7 (L) 20.0 - 26.0 mmol/L [facility]OR[facility]ORY BE Art -9.4 (L) -3.0 - 3.0 mmol/L [facility] Hgb Blood Gas 12.4 (L) 13.7 - 16.5 gm/dL [facility] O2HB Art 94.7 94.0 - 97.0 % [facility] COHB Art 0.2 % [facility] Comment: Nonsmokers: 0.5-1.5% COHB Smokers: Variable, but usually less than 10% Toxic: 20-30% COHB Lethal: Greater than 60% COHB METHB Art 0.6 <=1.5 % [facility] Na Whole Blood 141 135 - 145 mmol/L [facility] K Whole Blood 3.5 3.5 - 5.0 mmol/L [facility] Comment: Please note: Patients with WBC >100,000 may have falsely elevated Potassium levels. Contact the Clinical Chemistry L aboratory if there are any questions. ICa Whole Blood 1.03 (L) 1.15 - 1.33 mmol/L [facility] Comment: Note: ??Total bilirubin higher than 20 m g/dL may lead to falsely low ionized calcium. CL Whole Blood 109 (H) 98 - 107 mmol/L [facility] Gluc Whole Bld 315 (H) 65 - 199 mg/dL [facility] Comment: Diabetes: >=200 mg/dL plus symp toms. Lactate WB 7.6 (Critical) 0.5 - 2.2 mmol/L [facility] Comment: Noted by instrumentation designer. FIO2 Art 40 % [facility] PF Ratio Art 240 [facility] Specimen Anatomical Collection Method Collection Time Receive d Time (Source) Location / / Volume Laterality Blood specimen Arterial Draw / 07/08/2017 12:09 2016 5:31 (specimen) Unknown AM EST AM EST Resulting Agency Comment Spec In Lab Samy Maldonado MD CHEMISTRY ORDERABLES Performing Organization Address City/[facility]/[place] [address] (ABNORMAL) POCT Glucose (07/07/2017 10:56 PM EST) P athologist Signature POC Glucose 292 (H) 65 - 199 [facility] mg/dL [facility] Comment: Supplemental ranges: <140 mg/dL before meals <180 mg/dL all other times of the day Specimen Anatomical Collection Method Collection Time Receive d Time (Source) Location / / Volume Laterality Blood specimen 07/07/2017 10:56 7 (specimen) PM EST 10:56 PM EST Daphne Shahid MD POINT OF CARE TEST ORDERABLE S Performing Organization Address City/State/[place] [address] (ABNORMAL) BLOOD GAS 2 ARTERIAL (07/07/2017 10:04 PM EST) P athologist Signature pH Art 7.22 7.35 - [facility] (Critical) 7.45 [facility] Comment: Noted by instrumentation designer. pCO2 Art 42 35 - 45 mmHg [facility] pO2 Art 94 85 - 104 mmHg [facility] HCO3 Art 16.9 (L) 20.0 - 26.0 mmol/L [facility]OR[facility] BE Art -10.7 (L) -3.0 - 3.0 mmol/L [facility] Hgb Blood Gas 13.0 (L) 13.7 - 16.5 gm/dL [facility] O2HB Art 93.8 (L) 94.0 - 97.0 % [facility] COHB Art 0.7 % [facility] Comment: Nonsmokers: 0.5-1.5% COHB Smokers: Variable, but usually less than 10% Toxic: 20-30% COHB Lethal: Greater than 60% COHB METHB Art 0.7 <=1.5 % [facility] Na Whole Blood 140 135 - 145 mmol/L [facility] K Whole Blood 3.3 (L) 3.5 - 5.0 mmol/L [facility] Comment: Please note: Patients with WBC >100,000 may have falsely elevated Potassium levels. Contact the Clinical Chemistry L aboratory if there are any questions. ICa Whole Blood 1.07 (L) 1.15 - 1.33 mmol/L [facility] Comment: Note: ??Total bilirubin higher than 20 m g/dL may lead to falsely low ionized calcium. CL Whole Blood 107 98 - 107 mmol/L [facility] Gluc Whole Bld 304 (H) 65 - 199 mg/dL [facility] Comment: Diabetes: >=200 mg/dL plus symp toms. Lactate WB 8.2 (Critical) 0.5 - 2.2 mmol/L [facility] Comment: Noted by instrumentation designer. FIO2 Art 40 % [facility] PF Ratio Art 235 [facility] Specimen Anatomical Collection Method Collection Time Receive d Time (Source) Location / / Volume Laterality Blood specimen 07/07/2017 10:04 7 (specimen) PM EST 10:04 PM EST Daphne Shahid MD CHEMISTRY ORDERABLES Performing Organization Address City/[facility]/[place] [address] (ABNORMAL) Hemoglobin (07/07/2017 10:00 PM EST) athologist [facility] Hemoglobin 12.8 (L) 13.7 - [place] [facility] 16.5 gm/dL [facility] Specimen Anatomical Collection Method Collection Time Receive d Time (Source) Location / / Volume Laterality Blood specimen 07/07/2017 10:00 7 (specimen) PM EST 10:13 PM EST Resulting Agency Comment Spec In Lab Yuan Webber MD HEMATOLOGY ORDERABLES Performing Organization Address City/[facility] [[email or web address]] [place] [address] (ABNORMAL) Potassium (07/07/2017 10:00 PM EST) athologist [facility] Potassium 3.4 (L) 3.5 - 5.0 [facility] mmol/L [facility] Comment: Please note: ??Patients [...] Webber MD CHEMISTRY ORDERABLES Performing Organization Address City/[facility]/[place] [address] (ABNORMAL) POCT Glucose (07/07/2017 8:49 PM EST) athologist [facility] POC Glucose 241 (H) 65 - 199 [facility] mg/dL [facility] Comment: Supplemental ranges: <140 mg/dL before meals <180 mg/dL all other times of the day Specimen Anatomical Collection Method Collection Time Receive d Time (Source) Location / / Volume Laterality Blood specimen 07/07/2017 8:49 PM 017 8:49 (specimen) EST PM EST Daphne Shahid MD POINT OF CARE TEST ORDERABLE S Performing Organization Address City/[facility]/[place] [address] Prepare Albumin 5% in 250 mL (07/07/2017 8:03 PM EST) P athologist Signature Dispensed? Yes [facility] Specimen Anatomical Collection Method Collection Time Receive d Time (Source) Location / / Volume Laterality Blood specimen No Charge / 07/07/2017 8:03 PM 017 8:04 (specimen) Unknown EST PM EST Resulting Agency Comment Spec In Lab Michael Drake PA BLOOD BANK ORDERABLES Performing Organization Address [facility] [place] [address] EKG 12 Lead (07/07/2017 7:17 PM EST) Component Value Ref Range Test Analysis Performed Pathologis t Method Time At Signature Ventricular rate 75 BPM MUSE SYSTEM Atrial Rate 75 BPM MUSE SYSTEM P-R Interval 168 ms MUSE SYSTEM QRS Duration 104 ms MUSE SYSTEM Q-T Interval 462 ms MUSE SYSTEM QTC Calculated 515 ms MUSE SYSTEM (Bezet) Calculated P [place] 52 degrees MUSE SYSTEM Calculated R [place] -40 degrees MUSE SYSTEM Calculated T [place] 39 degrees MUSE SYSTEM INTERPRETATION Normal sinus [...] Webber MD ECG ORDERABLES Performing Organization Address City/[facility]/ZIP Code Phon e Number MUSE SYSTEM XR [...] coronary artery bypass graft. Yuan Webber MD IMMarc DX ORDERABLES (ABNORMAL) BLOOD GAS 2 ARTERIAL (07/07/2017 6:57 PM EST) P athologist Signature pH Art 7.21 7.35 - [facility] (Critical) 7.45 [facility] Comment: Noted by instrumentation designer. pCO2 Art 50 (H) 35 - 45 mmHg [facility] pO2 Art 238 (H) 85 - 104 mmHg [facility] HCO3 Art 19.8 (L) 20.0 - 26.0 mmol/L [facility] BE Art -8.1 (L) -3.0 - 3.0 mmol/L [facility] Hgb Blood Gas 12.8 (L) 13.7 - 16.5 gm/dL [facility] O2HB Art 97.5 (H) 94.0 - 97.0 % [facility] COHB Art 0.5 % [facility] Comment: Nonsmokers: 0.5-1.5% COHB Smokers: Variable, but usually less than 10% Toxic: 20-30% COHB Lethal: Greater than 60% COHB METHB Art 0.7 <=1.5 % [facility] Na Whole Blood 140 135 - 145 mmol/L [facility] K Whole Blood 3.0 (Critical) 3.5 - 5.0 mmol/L [facility] Comment: Noted by instrumentation designer. Please note: Patients with WBC >100,000 may have falsely elevated Potassium levels. Contact the Clinical Chemistry L aboratory if there are any questions. ICa Whole Blood 1.07 (L) 1.15 - 1.33 mmol/L [facility] Comment: Note: ??Total bilirubin higher than 20 m g/dL may lead to falsely low ionized calcium. CL Whole Blood 107 98 - 107 mmol/L [facility] Gluc Whole Bld 270 (H) 65 - 199 mg/dL [facility] Comment: Diabetes: >=200 mg/dL plus symp toms. Lactate WB 4.9 (Critical) 0.5 - 2.2 mmol/L [facility] Comment: Noted by instrumentation designer. FIO2 Art 100 % [facility] PF Ratio Art 238 [facility] Specimen Anatomical Collection Method Collection Time Receive d Time (Source) Location / / Volume Laterality Blood specimen 07/07/2017 6:57 PM 017 6:57 (specimen) EST PM EST Daphne Shahid MD CHEMISTRY ORDERABLES Performing Organization Address City/State/[place] [address] (ABNORMAL) BLOOD GAS 2 ARTERIAL (07/07/2017 5:31 PM EST) P athologist Signature pH Art 7.29 7.35 - [facility] (Critical) 7.45 [facility] Comment: Noted by instrumentation designer. pCO2 Art 48 (H) 35 - 45 mmHg [facility] pO2 Art 137 (H) 85 - 104 mmHg [facility] HCO3 Art 22.4 20.0 - 26.0 mmol/L [facility] BE Art -4.3 (L) -3.0 - 3.0 mmol/L [facility] Hgb Blood Gas 10.0 (L) 13.7 - 16.5 gm/dL [facility] O2HB Art 97.3 (H) 94.0 - 97.0 % [facility] COHB Art 0.3 % [facility] Comment: Nonsmokers: 0.5-1.5% COHB Smokers: Variable, but usually less than 10% Toxic: 20-30% COHB Lethal: Greater than 60% COHB METHB Art 0.3 <=1.5 % [facility] Na Whole Blood 132 (L) 135 - 145 mmol/L [facility] K Whole Blood 4.0 3.5 - 5.0 mmol/L [facility] Comment: Please note: Patients with WBC >100,000 may have falsely elevated Potassium levels. Contact the Clinical Chemistry L aboratory if there are any questions. ICa Whole Blood 1.14 (L) 1.15 - 1.33 mmol/L [facility] Comment: Note: ??Total bilirubin higher than 20 m g/dL may lead to falsely low ionized calcium. CL Whole Blood 105 98 - 107 mmol/L [facility] Gluc Whole Bld 293 (H) 65 - 199 mg/dL [facility] Comment: Diabetes: >=200 mg/dL plus symp toms. Lactate WB 3.1 (H) 0.5 - 2.2 mmol/L [facility] Specimen Anatomical Collection Method Collection Time Receive d Time (Source) Location / / Volume Laterality Blood specimen 07/07/2017 5:31 PM 017 5:31 (specimen) EST PM EST Daphne Shahid MD CHEMISTRY ORDERABLES Performing Organization Address [facility] Phon e Number [address] Fibrinogen (07/07/2017 5:30 PM EST) athologist Signature Fibrinogen 224 180 - 510 [facility] mg/dL [facility] Comment: Called by: JEET, Read [...] MD HEMATOLOGY ORDERABLES Performing Organization Address [facility] Phon e Number [address] APTT (07/07/2017 5:30 PM EST) athologist Signature PTT 30 25 - 35 sec [facility] Comment: The recommended therapeutic range for fu ll dose, unfractionated heparin at [facility] [facility] [place] [facility] 81 ? [...] Perez MD HEMATOLOGY ORDERABLES Performing Organization Address City/[facility]/[place] [address] (ABNORMAL) Prothrombin Time (07/07/2017 5:30 PM EST) P athologist Signature PT 19.0 (H) 11.8 - 14.0 [employer] [...] Perez MD HEMATOLOGY ORDERABLES Performing Organization Address City/[facility]/[place] [address] (ABNORMAL) Hemogram (07/07/2017 5:30 PM EST) P athologist Signature WBC 19.6 (H) 4.0 - 9.5 [facility] x10(3)/[facility] LABORATORY RBC 3.08 (L) 4.58 - [facility] 5.54 [facility] x10(6)/[facility] LABORATORY Hemoglobin 9.2 (L) 13.7 - [facility] 16.5 gm/dL [facility] LABORATORY Hematocrit 28.0 (L) 40.5 - [facility] 48.5 % [facility] LABORATORY Comment: This result has been called to MONICAVeda MORAN by DONALD GROSSMAN on 07 07 2017 at 1759, and has been read back. MCV 90.9 82.9 - 93.1 fL [facility] LABORATORY MCH 29.9 27.5 - 32.1 pg [facility] LABORATORY MCHC 32.9 32.0 - 35.7 gm/dL [facility] LABORATORY Platelets 155 145 - 357 x10(3)/[facility] LABORATORY RDWSD 46.5 (H) 36.0 - 45.0 [facility] LABORATORY RDWCV 14.1 (H) 11.4 - 13.8 % [facility] LABORATORY MPV 9.5 7.6 - 12.9 fL [facility] LABORATORY nRBC % Auto 0.0 % [facility] LABORATORY nRBC Abs Auto 0.000 0.000 - 0.000 x10(3)/[facility] LABORATORY Specimen Anatomical Collection Method Collection Time Receive d Time (Source) Location / / Volume Laterality Blood specimen 07/07/2017 5:30 PM 017 5:34 (specimen) EST PM EST Resulting Agency Comment Spec In Lab Yifan Perez MD HEMATOLOGY ORDERABLES Performing Organization Address City/[facility]/ZIP Code Phon e Number [address] Prepare Platelets, Apheresis (07/07/2017 5:00 PM EST) athologist Signature Dispensed? Yes [facility] LABORATORY Specimen Anatomical Collection Method Collection Time Receive d Time (Source) Location / / Volume Laterality Blood specimen 07/07/2017 5:00 PM 017 4:58 (specimen) EST PM EST Daphne Shahid MD BLOOD BANK ORDERABLES Performing Organization Address City/[facility]/ZIP [facility] Phon e Number [address] Platelet count (07/07/2017 4:55 PM EST) P athologist Signature Platelets 177 145 - 357 [facility] x10(3)/[facility] LABORATORY Plat Immature 1.5 0.0 - 7.4 [facility] % [facility] LABORATORY Comment: Limitation of the Immature Platelet Frac tion (IPF)-May be less reliable when the platelet count is less than 22w658/u L due to statistical imprecision. The IPF [...] in a decreased state of production. References: [employer] The Clinical Value of the Immature Platelet Fraction (IPF) in Cell Recovery Document Number 10-1143 12/2010 [employer] The Role of the Imm ature [...] City/State/ZIP Code Phon e Number [place] [phone] HOSP[address] LABORATORY Drive (ABNORMAL) Hemoglobin and Hematocrit, blood (07/07/2017 4:55 PM EST) P athologist Signature Hemoglobin 9.1 (L) 13.7 - 16.5 [facility] gm/dL [facility] LABORATORY Comment: This result has been called to MALKA MORAN by DONALD GROSSMAN on 07 07 2017 at 1734, and has been read back. Hematocrit 26.6 (L) 40.5 - 48.5 % [facility] LABORATORY Comment: This result has [...] Organization Address City/State/[place] [address] (ABNORMAL) BLOOD GAS 2 ARTERIAL (07/07/2017 4:38 PM EST) Analysis Performed At Patho logist Time Signature pH Art 7.37 7.35 - [facility] 7.45 [facility] LABORATORY pCO2 Art 44 35 - 45 [facility] mmHg [facility] LABORATORY pO2 Art 322 (H) 85 - 104 [facility] LABORATORY HCO3 Art 24.9 20.0 - [facility] 26.0 [facility] mmol/[facility] LABORATORY BE Art -0.4 -3.0 - 3.0 [facility] mmol/L [facility] LABORATORY Hgb Blood Gas 10.1 (L) 13.7 - [facility] 16.5 gm/dL [facility] O2HB Art 98.7 (H) 94.0 - [facility] 97.0 % [facility] LABORATORY COHB Art 0.1 % [facility] LABORATORY Comment: Nonsmokers: 0.5-1.5% COHB Smokers: Variable, but usually less than 10% Toxic: 20-30% COHB Lethal: Greater than 60% COHB METHB Art 0.3 <=1.5 % [facility] LABORATORY Na Whole Blood 130 (L) 135 - 145 mmol/L [facility] LABORATORY K Whole Blood 5.7 (H) 3.5 - 5.0 mmol/L [facility] LABORATORY Comment: Please note: Patients with WBC >100,000 may have falsely elevated Potassium levels. Contact the Clinical Chemistry L aboratory if there are any questions. ICa Whole Blood 0.89 (Critical) 1.15 - 1.33 mmol/L [facility] LABORATORY Comment: Noted by instrumentation designer. Note: ??Total bilirubin higher than 20 m g/dL may lead to falsely low ionized calcium. CL Whole Blood 101 98 - 107 mmol/L [facility] LABORATORY Gluc Whole Bld 295 [...] Organization Address City/State/[place] [address] (ABNORMAL) BLOOD GAS 2 VENOUS (07/07/2017 4:06 PM EST) Analysis Performed At Patho logist Time Signature pH Cody 7.31 (L) 7.32 - [facility] 7.42 [facility] LABORATORY pCO2 Cody 47 41 - 51 [facility] LABORATORY pO2 Cody 53 (H) 25 - 40 [facility] LABORATORY HCO3 Cody 22.7 mmol/L [facility] LABORATORY BE Cody -3.7 mmol/L [facility] LABORATORY Hgb Blood Gas 10.2 (L) 13.7 - [facility] 16.5 gm/dL [facility] LABORATORY O2HB Cody 81.0 % [facility] LABORATORY COHB Cody 1.0 % [facility] LABORATORY Comment: Nonsmokers: 0.5-1.5% COHB Smokers: Variable, but usually less than 10% Toxic: 20-30% COHB Lethal: Greater than 60% COHB METHB Cody 0.3 <=1.5 % [facility] LABORATORY Na Whole Blood 132 (L) 135 - 145 mmol/L [facility] LABORATORY K Whole Blood 5.3 (H) 3.5 - 5.0 mmol/L [facility] LABORATORY Comment: Please note: Patients with WBC >100,000 may have falsely elevated Potassium levels. Contact the Clinical Chemistry L aboratory if there are any questions. ICa Whole Blood 0.90 (Critical) 1.15 - 1.33 mmol/L [facility] LABORATORY Comment: Noted by instrumentation designer. Note: ??Total bilirubin higher than 20 m g/dL may lead to falsely low ionized calcium. CL Whole Blood 100 98 - 107 mmol/L [facility] LABORATORY Gluc Whole Bld 231 (H) 65 - 199 mg/dL [facility] LABORATORY Comment: Diabetes: >=200 mg/dL plus symp toms Lactate WB 1.1 0.5 - 2.2 mmol/L [facility] LABORATORY BGas Source Venous [facility] LABORATORY Specimen Anatomical Collection Method Collection Time Receive d Time (Source) Location / / Volume Laterality Blood specimen 07/07/2017 4:06 PM 017 4:06 (specimen) EST PM EST Daphne Shahid MD CHEMISTRY ORDERABLES Performing Organization Address City/State/[place] [address] (ABNORMAL) BLOOD GAS 2 ARTERIAL (07/07/2017 4:05 PM EST) Analysis Performed At Patho logist Time Signature pH Art 7.36 7.35 - [facility] 7.45 [facility] LABORATORY pCO2 Art 40 35 - 45 [facility] LABORATORY pO2 Art 282 (H) 85 - 104 [facility] LABORATORY HCO3 Art 22.1 20.0 - [facility] 26.0 [facility] mmol/[facility] LABORATORY BE Art -3.4 (L) -3.0 - 3.0 [facility] mmol/L [facility] LABORATORY Hgb Blood Gas 10.2 (L) 13.7 - [facility] 16.5 gm/dL [facility] LABORATORY O2HB Art 98.4 (H) 94.0 - [facility] 97.0 % [facility] LABORATORY COHB Art 0.3 % [facility] LABORATORY Comment: Nonsmokers: 0.5-1.5% COHB Smokers: Variable, but usually less than 10% Toxic: 20-30% COHB Lethal: Greater than 60% COHB METHB Art 0.3 <=1.5 % [facility] LABORATORY Na Whole Blood 131 (L) 135 - 145 mmol/L [facility] LABORATORY K Whole Blood 5.4 (H) 3.5 - 5.0 mmol/L [facility] LABORATORY Comment: Please note: Patients with WBC >100,000 may have falsely elevated Potassium levels. Contact the Clinical Chemistry L aboratory if there are any questions. ICa Whole Blood 0.86 (Critical) 1.15 - 1.33 mmol/L [facility] LABORATORY Comment: Noted by instrumentation designer. Note: ??Total bilirubin higher than 20 m g/dL may lead to falsely low ionized calcium. CL Whole Blood 101 98 - 107 mmol/L [facility] LABORATORY Gluc Whole Bld 260 [...] Organization Address City/State/[place] [address] (ABNORMAL) BLOOD GAS 2 ARTERIAL (07/07/2017 2:29 PM EST) Analysis Performed At Patho logist Time Signature pH Art 7.43 7.35 - [facility] 7.45 [facility] LABORATORY pCO2 Art 36 35 - 45 [facility] mmHg [facility] LABORATORY pO2 Art 221 (H) 85 - 104 [facility] LABORATORY HCO3 Art 23.2 20.0 - [facility] 26.0 [facility] mmol/L [facility] LABORATORY BE Art -1.2 -3.0 - 3.0 [facility] mmol/L [facility] LABORATORY Hgb Blood Gas 13.9 13.7 - [facility] 16.5 gm/dL [facility] LABORATORY O2HB Art 97.8 (H) 94.0 - [facility] 97.0 % [facility] LABORATORY COHB Art 1.1 % [facility] LABORATORY Comment: Nonsmokers: 0.5-1.5% COHB Smokers: Variable, but usually less than 10% Toxic: 20-30% COHB Lethal: Greater than 60% COHB METHB Art 0.3 <=1.5 % [facility] LABORATORY Na Whole Blood 139 135 - 145 mmol/L [facility] LABORATORY K Whole Blood 4.0 3.5 - 5.0 mmol/L [facility] LABORATORY Comment: Please note: Patients with WBC >100,000 may have falsely elevated Potassium levels. Contact the Clinical Chemistry L aboratory if there are any questions. ICa Whole Blood 1.11 (L) 1.15 - 1.33 mmol/L [facility] LABORATORY Comment: Note: ??Total bilirubin higher than 20 m g/dL may lead to falsely low ionized calcium. CL Whole Blood 104 98 - 107 mmol/L [facility] LABORATORY Gluc Whole Bld 184 [...] Shahid MD CHEMISTRY ORDERABLES Performing Organization Address City/[facility]/[place] [address] Prepare Coag Factors (Non-Hemophilia) (07/07/2017 1:25 PM EST) P athologist Signature Dispensed? Yes [facility] LABORATORY Specimen Anatomical Collection Method Collection Time Receive d Time (Source) Location / / Volume Laterality Blood specimen 07/07/2017 1:25 PM 017 1:21 (specimen) EST PM EST Daphne Shahid MD BLOOD BANK ORDERABLES Performing Organization Address City/[facility]/[place] [address] Prepare RBC (07/07/2017 1:10 PM EST) P athologist Signature Dispensed? Yes [facility] LABORATORY Specimen Anatomical Collection Method Collection Time Receive d Time (Source) Location / / Volume Laterality Blood specimen 07/07/2017 1:10 PM 017 1:05 (specimen) EST PM EST Daphne Shahid MD BLOOD BANK ORDERABLES Performing Organization Address City/[facility]/ZIP Code Phon e Number [address] POCT Glucose (07/07/2017 11:56 AM EST) P athologist Signature POC Glucose 188 65 - 199 [place] mg/dL [facility] LABORATORY Comment: Supplemental ranges: <140 mg/dL before meals <180 mg/dL all other times of the day Specimen Anatomical Collection Method Collection Time Receive d Time (Source) Location / / Volume Laterality Blood specimen 07/07/2017 11:56 7 (specimen) AM EST 11:56 AM EST Daphne Shahid MD POINT OF CARE TEST ORDERABLE S Performing Organization Address City/[facility]/ZIP Code Phon e Number [address] POCT Glucose (07/07/2017 11:05 AM EST) P athologist Signature POC Glucose 168 65 - 199 [place] mg/dL [facility] LABORATORY Comment: Supplemental ranges: <140 mg/dL before meals <180 mg/dL all other times of the day Specimen Anatomical Collection Method Collection Time Receive d Time (Source) Location / / Volume Laterality Blood specimen 07/07/2017 11:05 7 (specimen) AM EST 11:05 AM EST Daphne Shahid MD POINT OF CARE TEST ORDERABLE S Performing Organization Address City/[facility]/ZIP Code Phon e Number [address] POCT Glucose (07/07/2017 10:02 AM EST) P athologist Signature POC Glucose 191 65 - 199 [place] mg/dL [facility] LABORATORY Comment: Supplemental ranges: <140 mg/dL before meals <180 mg/dL all other times of the day Specimen Anatomical Collection Method Collection Time Receive d Time (Source) Location / / Volume Laterality Blood specimen 07/07/2017 10:02 7 (specimen) AM EST 10:02 AM EST Daphne Shahid MD POINT OF CARE TEST ORDERABLE S Performing Organization Address City/State/ZIP Code Phon e Number [address] POCT Glucose (07/07/2017 7:53 AM EST) athologist Signature POC Glucose 178 65 - 199 [place] mg/dL [facility] LABORATORY Comment: Supplemental ranges: <140 mg/dL before meals <180 mg/dL all other times of the day Specimen Anatomical Collection Method Collection Time Receive d Time (Source) Location / / Volume Laterality Blood specimen 07/07/2017 7:53 AM 017 7:53 (specimen) EST AM EST Daphne Shahid MD POINT OF CARE TEST ORDERABLE S Performing Organization Address City/[facility]/ZIP Code Phon e Number [address] POCT Glucose (07/07/2017 7:03 AM EST) athologist Signature POC Glucose 188 65 - 199 [facility] SU mg/dL [facility] LABORATORY Comment: Supplemental ranges: <140 mg/dL before meals <180 mg/dL all other times of the day Specimen Anatomical Collection Method Collection Time Receive d Time (Source) Location / / Volume Laterality Blood specimen 07/07/2017 7:03 AM 017 7:03 (specimen) EST AM EST Daphne Shahid MD POINT OF CARE TEST ORDERABLE S Performing Organization Address City/State/ZIP Code Phon e Number [address] (ABNORMAL) POCT Glucose (07/07/2017 6:17 AM EST) athologist Signature POC Glucose 207 (H) 65 - 199 [facility] SU mg/dL [facility] LABORATORY Comment: Supplemental ranges: <140 mg/dL before meals <180 mg/dL all other times of the day Specimen Anatomical Collection Method Collection Time Receive d Time (Source) Location / / Volume Laterality Blood specimen 07/07/2017 6:17 AM 017 6:17 (specimen) EST AM EST Daphne Shahid MD POINT OF CARE TEST ORDERABLE S Performing Organization Address City/State/ZIP Code Phon e Number [place] [phone] HOSPITAL LABOR[address]ORY Drive Differential, Automated (07/07/2017 5:15 AM EST) P athologist Signature Neutrophils % 69.7 % [facility] LABORATORY Neutr Abs (ANC) 5.32 1.70 - [facility] 6.10 [facility] x10(3)/[facility] LABORATORY Lymphocytes % 16.3 % [facility] LABORATORY Lymphocytes Abs 1.2 0.9 - 3.2 [facility] x10(3)/[facility] LABORATORY Monocytes % 10.5 % [facility] LABORATORY Monocyte Abs 0.8 0.3 - 0.9 [facility] x10(3)/[facility] LABORATORY Eosinophils % 2.5 % [facility] LABORATORY Eosinophils Abs 0.2 0.0 - 0.4 [facility] x10(3)/[facility] LABORATORY Basophils % 0.7 % [facility] LABORATORY Basophils Abs 0.0 0.0 - 0.1 [facility] x10(3)/[facility] LABORATORY Immature Gran % 0.30 % [place] [...] 0.04 x10(3)/[facility] LABORATORY Specimen Anatomical Collection Method Collection Time Receive d Time (Source) Location / / Volume Laterality Blood specimen 07/07/2017 5:15 AM 017 5:34 (specimen) EST AM EST Resulting Agency Comment Spec In Lab Daphne Shahid MD HEMATOLOGY ORDERABLES Performing Organization Address City/State/[place] [address] (ABNORMAL) Hemogram (07/07/2017 5:15 AM EST) Analysis Performed At Patho logist Time Signature WBC 7.6 4.0 - 9.5 [facility] x10(3)/[facility] LABORATORY RBC 4.82 4.58 - [place] 5.54 [facility] x10(6)/[facility] LABORATORY Hemoglobin 14.4 13.7 - [facility] 16.5 gm/dL [facility] LABORATORY Hematocrit 42.1 40.5 - [facility] 48.5 % [facility] LABORATORY MCV 87.3 82.9 - [facility] 93.1 [facility] LABORATORY MCH 29.9 27.5 - [facility] 32.1 pg [facility] LABORATORY MCHC 34.2 32.0 - [facility] 35.7 gm/dL [facility] LABORATORY Platelets 188 145 - 357 [facility] x10(3)/[facility] LABORATORY RDWSD 45.1 (H) 36.0 - [facility] 45.0 [facility] LABORATORY RDWCV 14.3 (H) 11.4 - [facility] 13.8 % [facility] LABORATORY MPV 9.4 7.6 - 12.9 [facility] LABORATORY nRBC % Auto 0.0 % [facility] LABORATORY nRBC Abs Auto 0.000 0.000 - [facility] 0.000 [facility] x10(3)/[facility] LABORATORY Specimen Anatomical Collection Method Collection Time Receive d Time (Source) Location / / Volume Laterality Blood specimen 07/07/2017 5:15 AM 017 5:34 (specimen) EST AM EST Resulting Agency Comment Spec In Lab Daphne Shahid MD HEMATOLOGY ORDERABLES Performing Organization Address City/State/[place] [address] (ABNORMAL) APTT (07/07/2017 5:15 AM EST) P athologist Signature PTT 69 (H) 25 - 35 sec [facility] LABORATORY Comment: The recommended therapeutic range for fu ll dose, unfractionated heparin at [facility] is 80 ? [...] Shahid MD HEMATOLOGY ORDERABLES Performing Organization Address City/[facility]/ZIP Code Phon e Number [address] Magnesium (07/07/2017 5:15 AM EST) athologist Signature Magnesium 0.94 0.69 - 1.07 [facility] mmol/L [facility] LABORATORY Specimen Anatomical Collection Method Collection Time Receive d Time (Source) Location / / Volume Laterality Blood specimen 07/07/2017 5:15 AM 017 5:34 (specimen) EST AM EST Resulting Agency Comment Spec In Lab Daphne Shahid MD CHEMISTRY ORDERABLES Performing Organization Address City/[facility] [place] [address] (ABNORMAL) Basic Metabolic Panel (non-fasting) (07/07/2017 5:15 AM EST) athologist Signature Glucose Lvl 203 (H) 65 - 199 [facility] mg/dL [facility] LABORATORY Comment: Diabetes: >=200 mg/dL plus symp toms BUN 15 10 - 20 mg/dL [facility] LABORATORY Creatinine 1.09 0.80 - 1.50 mg/dL [facility] LABORATORY Sodium 142 135 - 145 mmol/L [facility] LABORATORY Potassium 4.4 3.5 - 5.0 mmol/L [facility] [...] or in patients with acute kidney failure. [email or web address] [email or web address] Specimen Anatomical Collection Method Collection Time Receive d Time (Source) Location / / Volume Laterality Blood specimen 07/07/2017 5:15 AM 017 5:34 (specimen) EST AM EST Resulting Agency Comment Spec In Lab Daphne Shahid MD CHEMISTRY ORDERABLES Performing Organization Address City/State/[place] [address] (ABNORMAL) Cardiac Enzymes (LEB/CGP) (07/07/2017 5:15 AM EST) P athologist Signature Troponin-T 2.07 (H) 0.00 - [facility] 0.00 ng/mL [facility] LABORATORY Comment: The 99th percentile [...] additional sample may be indicated. Reference: Third Starr Definition of Myocardial Infarction. Journal of the [place] [employer] 2012;60:1581-98 CK, Total 88 0 - 200 unit/L [facility] LABORATORY Specimen Anatomical Collection Method Collection Time Receive d Time (Source) Location / / Volume Laterality Blood specimen 07/07/2017 5:15 AM 017 5:34 (specimen) EST AM EST Resulting Agency Comment Spec In Lab Daphne Shahid MD CHEMISTRY ORDERABLES Performing Organization Address City/[facility]/ZIP [facility] Phon e Number [address] POCT Glucose (07/07/2017 5:01 AM EST) athologist Signature POC Glucose 182 65 - 199 [facility] mg/dL [facility] LABORATORY Comment: Supplemental ranges: <140 mg/dL before meals <180 mg/dL all other times of the day Specimen Anatomical Collection Method Collection Time Receive d Time (Source) Location / / Volume Laterality Blood specimen 07/07/2017 5:01 AM 017 5:01 (specimen) EST AM EST Daphne Shahid MD POINT OF CARE TEST ORDERABLE S Performing Organization Address City/[facility]/[place] [address] POCT Glucose (07/07/2017 4:08 AM EST) athologist Signature POC Glucose 199 65 - 199 [facility] LAB[facility] Comment: Supplemental ranges: <140 mg/dL before meals <180 mg/dL all other times of the day Specimen Anatomical Collection Method Collection Time Receive d Time (Source) Location / / Volume Laterality Blood specimen 07/07/2017 4:08 AM 017 4:08 (specimen) EST AM EST Daphne Shahid MD POINT OF CARE TEST ORDERABLE S Performing Organization Address City/[facility]/ZIP Code Phon e Number [address] POCT Glucose (07/07/2017 3:03 AM EST) athologist Signature POC Glucose 188 65 - 199 [facility] mg/dL [facility] LAB[facility]ORY Comment: Supplemental ranges: <140 mg/dL before meals <180 mg/dL all other times of the day Specimen Anatomical Collection Method Collection Time Receive d Time (Source) Location / / Volume Laterality Blood specimen 07/07/2017 3:03 AM 017 3:03 (specimen) EST AM EST Daphne Shahid MD POINT OF CARE TEST ORDERABLE S Performing Organization Address City/State/[place] [address] (ABNORMAL) POCT Glucose (07/07/2017 2:08 AM EST) athologist Signature POC Glucose 200 (H) 65 - 199 [facility] mg/dL [facility] LAB[facility]ORY Comment: Supplemental ranges: <140 mg/dL before meals <180 mg/dL all other times of the day Specimen Anatomical Collection Method Collection Time Receive d Time (Source) Location / / Volume Laterality Blood specimen 07/07/2017 2:08 AM 017 2:08 (specimen) EST AM EST Daphne Shahid MD POINT OF CARE TEST ORDERABLE S Performing Organization Address City/State/[place] [address] (ABNORMAL) POCT Glucose (07/07/2017 1:31 AM EST) athologist Signature POC Glucose 209 (H) 65 - 199 [facility]dL [facility] Comment: Supplemental ranges: <140 mg/dL before meals <180 mg/dL all other times of the day Specimen Anatomical Collection Method Collection Time Receive d Time (Source) Location / / Volume Laterality Blood specimen 07/07/2017 1:31 AM 017 1:31 (specimen) EST AM EST Daphne Shahid MD POINT OF CARE TEST ORDERABLE S Performing Organization Address City/State/[place] [address] XR Chest PA or [...] Signature POC Glucose 161 65 - 199 [facility] mg/dL [facility] Comment: Supplemental ranges: <140 mg/dL before meals <180 mg/dL all other times of the day Specimen Anatomical Collection Method Collection Time Receive d Time (Source) Location / / Volume Laterality Blood specimen 07/07/2017 12:07 7 (specimen) AM EST 12:07 AM EST Daphne Shahid MD POINT OF CARE TEST ORDERABLE S Performing Organization Address City/State/[place] [address] (ABNORMAL) APTT (07/07/2017 12:00 AM EST) P athologist Signature PTT 103 (H) 25 - 35 sec [facility] LABORATORY Comment: The recommended therapeutic range for fu ll dose, unfractionated heparin at [facility] is 80 ? [...] Shahid MD HEMATOLOGY ORDERABLES Performing Organization Address City/[facility]/ZIP Code Phon e Number [address] POCT Glucose (07/06/2017 9:55 PM EST) athologist Signature POC Glucose 109 65 - 199 [facility] mg/dL [facility] Comment: Supplemental ranges: <140 mg/dL before meals <180 mg/dL all other times of the day Specimen Anatomical Collection Method Collection Time Receive d Time (Source) Location / / Volume Laterality Blood specimen 07/06/2017 9:55 PM 017 9:55 (specimen) EST PM EST Daphne Shahid MD POINT OF CARE TEST ORDERABLE S Performing Organization Address City/[facility]/ZIP Code Phon e Number [address] POCT Glucose (07/06/2017 9:04 PM EST) athologist Signature POC Glucose 120 65 - 199 [facility] mg/dL [facility] Comment: Supplemental ranges: <140 mg/dL before meals <180 mg/dL all other times of the day Specimen Anatomical Collection Method Collection Time Receive d Time (Source) Location / / Volume Laterality Blood specimen 07/06/2017 9:04 PM 017 9:04 (specimen) EST PM EST Daphne Shahid MD POINT OF CARE TEST ORDERABLE S Performing Organization Address City/[facility]/ZIP Code Phon e Number [address] POCT Glucose (07/06/2017 7:45 PM EST) athologist Signature POC Glucose 158 65 - 199 [facility] mg/dL [facility] Comment: Supplemental ranges: <140 mg/dL before meals <180 mg/dL all other times of the day Specimen Anatomical Collection Method Collection Time Receive d Time (Source) Location / / Volume Laterality Blood specimen 07/06/2017 7:45 PM 017 7:45 (specimen) EST PM EST Daphne Shahid MD POINT OF CARE TEST ORDERABLE S Performing Organization Address City/[facility]/ZIP [facility] [place] [address] Potassium (07/06/2017 7:40 PM EST) athologist [facility] Potassium 3.9 3.5 - 5.0 [facility] mmol/L [facility] Comment: Please note: ??Patients [...] Shahid MD CHEMISTRY ORDERABLES Performing Organization Address City/[facility] [place] [address] (ABNORMAL) Cardiac Enzymes (LEB/CGP) (07/06/2017 7:40 PM EST) athologist [facility] Troponin-T 2.27 (H) 0.00 - [place] 0.00 ng/mL [facility] Comment: The 99th percentile [...] additional sample may be indicated. Reference: Third Starr Definition of Myocardial Infarction. Journal of the [place] [employer] 2012;60:1581-98 CK, Total 93 0 - 200 unit/L [facility] LABORATORY Specimen Anatomical Collection Method Collection Time Receive d Time (Source) Location / / Volume Laterality Blood specimen 07/06/2017 7:40 PM 017 7:52 (specimen) EST PM EST Resulting Agency Comment Spec In Lab Daphne Shahid MD CHEMISTRY ORDERABLES Performing Organization Address City/[facility]/[place] [address] (ABNORMAL) POCT Glucose (07/06/2017 7:13 PM EST) P athologist Signature POC Glucose 200 (H) 65 - 199 [facility] mg/dL [facility] Comment: Supplemental ranges: <140 mg/dL before meals <180 mg/dL all other times of the day Specimen Anatomical Collection Method Collection Time Receive d Time (Source) Location / / Volume Laterality Blood specimen 07/06/2017 7:13 PM 017 7:13 (specimen) EST PM EST Daphne Shahid MD POINT OF CARE TEST ORDERABLE S Performing Organization Address City/[facility]/[place] [address] (ABNORMAL) APTT (07/06/2017 6:15 PM EST) P athologist Signature PTT 94 (H) 25 - 35 sec [facility] LABORATORY Comment: The recommended therapeutic range for fu ll dose, unfractionated heparin at [facility] is 80 ? [...] Shahid MD HEMATOLOGY ORDERABLES Performing Organization Address City/[facility]/ZIP Code Phon e Number [address] (ABNORMAL) POCT Glucose (07/06/2017 6:03 PM EST) athologist Signature POC Glucose 236 (H) 65 - 199 [facility] mg/dL [facility] Comment: Supplemental ranges: <140 mg/dL before meals <180 mg/dL all other times of the day Specimen Anatomical Collection Method Collection Time Receive d Time (Source) Location / / Volume Laterality Blood specimen 07/06/2017 6:03 PM 017 6:03 (specimen) EST PM EST Daphne Shahid MD POINT OF CARE TEST ORDERABLE S Performing Organization Address City/[facility]/[place] [address] (ABNORMAL) POCT Glucose (07/06/2017 5:01 PM EST) P athologist Signature POC Glucose 235 (H) 65 - 199 [facility] mg/dL [facility] Comment: Supplemental ranges: <140 mg/dL before meals <180 mg/dL all other times of the day Specimen Anatomical Collection Method Collection Time Receive d Time (Source) Location / / Volume Laterality Blood specimen 07/06/2017 5:01 PM 017 5:01 (specimen) EST PM EST Daphne Shahid MD POINT OF CARE TEST ORDERABLE S Performing Organization Address City/State/[place] [address] (ABNORMAL) POCT Glucose (07/06/2017 4:06 PM EST) athologist Signature POC Glucose 202 (H) 65 - 199 [facility] mg/dL [facility] Comment: Supplemental ranges: <140 mg/dL before meals <180 mg/dL all other times of the day Specimen Anatomical Collection Method Collection Time Receive d Time (Source) Location / / Volume Laterality Blood specimen 07/06/2017 4:06 PM 017 4:06 (specimen) EST PM EST Daphne Shahid MD POINT OF CARE TEST ORDERABLE S Performing Organization Address City/[facility]/ZIP [facility] [place] [address] POCT Glucose (07/06/2017 2:59 PM EST) athologist Signature POC Glucose 178 65 - 199 [facility] mg/dL [facility] Comment: Supplemental ranges: <140 mg/dL before meals <180 mg/dL all other times of the day Specimen Anatomical Collection Method Collection Time Receive d Time (Source) Location / / Volume Laterality Blood specimen 07/06/2017 2:59 PM 017 2:59 (specimen) EST PM EST Daphne Shahid MD POINT OF CARE TEST ORDERABLE S Performing Organization Address City/[facility] [place] [address] (ABNORMAL) Cardiac Enzymes (LEB/CGP) (07/06/2017 2:10 PM EST) athologist Signature Troponin-T 2.34 (H) 0.00 - [facility] 0.[facility] ng/mL [facility] Comment: The 99th percentile [...] additional sample may be indicated. Reference: Third Starr Definition of Myocardial Infarction. Journal of the [place] [employer] 2012;60:1581-98 CK, Total 101 0 - 200 unit/L [facility] LABORATORY Specimen Anatomical Collection Method Collection Time Receive d Time (Source) Location / / Volume Laterality Blood specimen 07/06/2017 2:10 PM 017 2:26 (specimen) EST PM EST Resulting Agency Comment Spec In Lab Daphne Shahid MD CHEMISTRY ORDERABLES Performing Organization Address City/[facility]/ZIP Code Phon e Number [address] POCT Glucose (07/06/2017 2:08 PM EST) athologist Signature POC Glucose 192 65 - 199 [facility] mg/dL [facility] Comment: Supplemental ranges: <140 mg/dL before meals <180 mg/dL all other times of the day Specimen Anatomical Collection Method Collection Time Receive d Time (Source) Location / / Volume Laterality Blood specimen 07/06/2017 2:08 PM 017 2:08 (specimen) EST PM EST Daphne Shahid MD POINT OF CARE TEST ORDERABLE S Performing Organization Address City/[facility]/ZIP [facility] Phon e Number [address] POCT Glucose (07/06/2017 1:04 PM EST) athologist Signature POC Glucose 162 65 - 199 [facility] mg/dL [facility] Comment: Supplemental ranges: <140 mg/dL before meals <180 mg/dL all other times of the day Specimen Anatomical Collection Method Collection Time Receive d Time (Source) Location / / Volume Laterality Blood specimen 07/06/2017 1:04 PM 017 1:04 (specimen) EST PM EST Daphne Shahid MD POINT OF CARE TEST ORDERABLE S Performing Organization Address City/State/ZIP Code Phon e Number [address] POCT Glucose (07/06/2017 12:05 PM EST) P athologist Signature POC Glucose 196 65 - 199 [facility] mg/dL [facility] Comment: Supplemental ranges: <140 mg/dL before meals <180 mg/dL all other times of the day Specimen Anatomical Collection Method Collection Time Receive d Time (Source) Location / / Volume Laterality Blood specimen 07/06/2017 12:05 7 (specimen) PM EST 12:05 PM EST Daphne Shahid MD POINT OF CARE TEST ORDERABLE S Performing Organization Address City/[facility]/[place] [address] EKG 12 Lead (07/06/2017 12:00 PM EST) Component Value Ref Range Test Analysis Performed Pathologis t Method Time At Signature Ventricular rate 91 BPM MUSE SYSTEM Atrial Rate 91 BPM MUSE SYSTEM P-R Interval 140 ms MUSE SYSTEM QRS Duration 94 ms MUSE SYSTEM Q-T Interval 394 ms MUSE SYSTEM QTC Calculated 484 ms MUSE SYSTEM (Bezet) Calculated P [place] 36 degrees MUSE SYSTEM Calculated R [place] -19 degrees MUSE SYSTEM Calculated T [place] 104 degrees MUSE SYSTEM INTERPRETATION Normal sinus rhythm MUSE SYSTEM 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) ST & T wave abnormality, consider lateral ischemia Abnormal ECG When compared with ECG of 05-JUL-2017 20:39, No significant change was found Confirmed by MD Luci, Taurus Braun ([id number]) on 07/06/2017 5:07:33 PM Specimen Anatomical Collection Method Collection Time Receive d Time (Source) Location / / Volume Laterality 07/06/2017 12:00 07/06/2017 5:07 PM EST PM EST Authorizing Provider Result Mikaela Shahid MD ECG ORDERABLES Performing Organization Address City/State/ZIP Code Phon e Number MUSE SYSTEM ABORH Recheck Status (07/06/2017 12:00 PM EST) [facility] Method Time Signature ABORH Type Completed [facility] LABORATORY Specimen Anatomical Collection Method Collection Time Receive d Time (Source) Location / / Volume Laterality Blood specimen 07/06/2017 12:00 7 (specimen) PM EST 12:24 PM EST Resulting Agency Comment Spec In Lab Daphne Shahid MD BLOOD BANK ORDERABLES Performing Organization Address City/State/[place] [address] Antibody screen (07/06/2017 12:00 PM EST) [facility] Method Manuel Garcia Ii Signature Ab Screen Negative [facility] LABORATORY Expires at 07/09/2017 [facility] [id number] on: [facility] Specimen Anatomical Collection Method Collection Time Receive d Time (Source) Location / / Volume Laterality Blood specimen 07/06/2017 12:00 7 (specimen) PM EST 12:24 PM EST Resulting Agency Comment Spec In Lab Daphne Shahid MD BLOOD BANK ORDERABLES Performing Organization Address City/State/[place] [address] ABO/Rh Typing (07/06/2017 12:00 PM EST) P athologist Signature ABORh Type O Pos [facility] LABORATORY Specimen Anatomical Collection Method Collection Time Receive d Time (Source) Location / / Volume Laterality Blood specimen 07/06/2017 12:00 7 (specimen) PM EST 12:24 PM EST Resulting Agency Comment Spec In Lab Daphne Shahid MD BLOOD BANK ORDERABLES Performing Organization Address City/[facility]/[place] [address] Prothrombin Time (07/06/2017 11:24 AM EST) P athologist Signature PT 13.3 11.8 - 14.0 [facility] LABORATORY INR 1.0 0.9 - 1.1 [facility] [...] Shahid MD HEMATOLOGY ORDERABLES Performing Organization Address City/[facility]/[place] [address] (ABNORMAL) APTT (07/06/2017 11:24 AM EST) P athologist Signature PTT 52 (H) 25 - 35 sec [facility] LABORATORY Comment: The recommended therapeutic range for fu ll dose, unfractionated heparin at [facility] is 80 ? [...] Shahid MD HEMATOLOGY ORDERABLES Performing Organization Address City/[facility]/[place] [address] POCT Glucose (07/06/2017 11:02 AM EST) P athologist Signature POC Glucose 187 65 - 199 [facility] mg/dL [facility] Comment: Supplemental ranges: <140 mg/dL before meals <180 mg/dL all other times of the day Specimen Anatomical Collection Method Collection Time Receive d Time (Source) Location / / Volume Laterality Blood specimen 07/06/2017 11:02 7 (specimen) AM EST 11:02 AM EST Daphne Shahid MD POINT OF CARE TEST ORDERABLE S Performing Organization Address City/State/[place] [address] POCT Glucose (07/06/2017 10:18 AM EST) athologist Signature POC Glucose 193 65 - 199 [facility] mg/dL [facility] Comment: Supplemental ranges: <140 mg/dL before meals <180 mg/dL all other times of the day Specimen Anatomical Collection Method Collection Time Receive d Time (Source) Location / / Volume Laterality Blood specimen 07/06/2017 10:18 7 (specimen) AM EST 10:18 AM EST Daphne Shahid MD POINT OF CARE TEST ORDERABLE S Performing Organization Address City/State/ZIP Code Phon e Number [address] POCT Glucose (07/06/2017 9:25 AM EST) athologist Signature POC Glucose 182 65 - 199 [place] mg/dL [facility] Comment: Supplemental ranges: <140 mg/dL before meals <180 mg/dL all other times of the day Specimen Anatomical Collection Method Collection Time Receive d Time (Source) Location / / Volume Laterality Blood specimen 07/06/2017 9:25 AM 017 9:25 (specimen) EST AM EST Daphne Shahid MD POINT OF CARE TEST ORDERABLE S Performing Organization Address City/State/[place] [address] (ABNORMAL) Cardiac Enzymes (LEB/CGP) (07/06/2017 8:10 AM EST) athologist Signature Troponin-T 2.26 (H) 0.00 - [facility] 0.00 ng/mL [facility] Comment: The 99th percentile [...] additional sample may be indicated. Reference: Third Starr Definition of Myocardial Infarction. Journal of the [place] [employer] 2012;60:1581-98 CK, Total 124 0 - 200 unit/L [facility] LABORATORY Specimen Anatomical Collection Method Collection Time Receive d Time (Source) Location / / Volume Laterality Blood specimen 07/06/2017 8:10 AM 017 8:23 (specimen) EST AM EST Resulting Agency Comment Spec In Lab Daphne Shahid MD CHEMISTRY ORDERABLES Performing Organization Address City/[facility]/ZIP Code Phon e Number [address] Magnesium (07/06/2017 8:10 AM EST) P athologist Signature Magnesium 0.84 0.69 - 1.07 [facility] mmol/L [facility] LABOR[facility]ORY Specimen Anatomical Collection Method Collection Time Receive d Time (Source) Location / / Volume Laterality Blood specimen 07/06/2017 8:10 AM 017 8:21 (specimen) EST AM EST Resulting Agency Comment Spec In Lab Daphne Shahid MD CHEMISTRY ORDERABLES Performing Organization Address City/[facility]/[place] [address] (ABNORMAL) Basic Metabolic Panel (non-fasting) (07/06/2017 8:10 AM EST) athologist Signature Glucose Lvl 199 65 - 199 [facility] mg/dL [facility] Comment: Diabetes: >=200 mg/dL plus symp toms BUN 16 10 - 20 mg/dL [facility] LABORATORY Creatinine 1.04 0.80 - 1.50 mg/dL [facility] LABORATORY Sodium 141 135 - [...] or in patients with acute kidney failure. http://[employer]/DHnkdep http://[employer]/DHMCnkf Specimen Anatomical Collection Method Collection Time Receive d Time (Source) Location / / Volume Laterality Blood specimen 07/06/2017 8:10 AM 017 8:21 (specimen) EST AM EST Resulting Agency Comment Spec In Lab Daphne Shahid MD CHEMISTRY ORDERABLES Performing Organization Address City/State/[place] [address] POCT Glucose (07/06/2017 7:34 AM EST) P athologist Signature POC Glucose 198 65 - 199 [facility] mg/dL [facility] Comment: Supplemental ranges: <140 mg/dL before meals <180 mg/dL all other times of the day Specimen Anatomical Collection Method Collection Time Receive d Time (Source) Location / / Volume Laterality Blood specimen 07/06/2017 7:34 AM 017 7:34 (specimen) EST AM EST Daphne Shahid MD POINT OF CARE TEST ORDERABLE S Performing Organization Address City/State/ZIP Code Phon e Number [address] POCT Glucose (07/06/2017 7:03 AM EST) P athologist Signature POC Glucose 181 65 - 199 [facility] mg/dL [facility] Comment: Supplemental ranges: <140 mg/dL before meals <180 mg/dL all other times of the day Specimen Anatomical Collection Method Collection Time Receive d Time (Source) Location / / Volume Laterality Blood specimen 07/06/2017 7:03 AM 017 7:03 (specimen) EST AM EST Daphne Shahid MD POINT OF CARE TEST ORDERABLE S Performing Organization Address City/State/[place] [address] XR Chest PA or [...] Signature POC Glucose 172 65 - 199 [facility] mg/dL [facility] Comment: Supplemental ranges: <140 mg/dL before meals <180 mg/dL all other times of the day Specimen Anatomical Collection Method Collection Time Receive d Time (Source) Location / / Volume Laterality Blood specimen 07/06/2017 6:21 AM 017 6:21 (specimen) EST AM EST Daphne Shahid MD POINT OF CARE TEST ORDERABLE S Performing Organization Address City/[facility]/[place] [address] POCT Glucose (07/06/2017 5:08 AM EST) athologist Signature POC Glucose 154 65 - 199 [facility] Comment: Supplemental ranges: <140 mg/dL before meals <180 mg/dL all other times of the day Specimen Anatomical Collection Method Collection Time Receive d Time (Source) Location / / Volume Laterality Blood specimen 07/06/2017 5:08 AM 017 5:08 (specimen) EST AM EST Daphne Shahid MD POINT OF CARE TEST ORDERABLE S Performing Organization Address City/State/[place] [address] POCT Glucose (07/06/2017 4:05 AM EST) athologist Signature POC Glucose 142 65 - 199 [facility] mg/dL [facility] Comment: Supplemental ranges: <140 mg/dL before meals <180 mg/dL all other times of the day Specimen Anatomical Collection Method Collection Time Receive d Time (Source) Location / / Volume Laterality Blood specimen 07/06/2017 4:05 AM 017 4:05 (specimen) EST AM EST Daphne Shahid MD POINT OF CARE TEST ORDERABLE S Performing Organization Address City/[facility]/ZIP Code Phon e Number [address] POCT Glucose (07/06/2017 3:00 AM EST) athologist Signature POC Glucose 116 65 - 199 [facility] mg/dL [facility] Comment: Supplemental ranges: <140 mg/dL before meals <180 mg/dL all other times of the day Specimen Anatomical Collection Method Collection Time Receive d Time (Source) Location / / Volume Laterality Blood specimen 07/06/2017 3:00 AM 017 3:00 (specimen) EST AM EST Daphne Shahid MD POINT OF CARE TEST ORDERABLE S Performing Organization Address City/[facility]/[place] [address] Potassium (07/06/2017 2:20 AM EST) athologist Signature Potassium 3.9 3.5 - 5.0 [facility] mmol/L [facility] Comment: Please note: ??Patients [...] Shahid MD CHEMISTRY ORDERABLES Performing Organization Address City/[facility]/ZIP Code Phon e Number [place] [id number] Differential, Automated (07/06/2017 2:20 AM EST) P athologist Signature Neutrophils % 72.9 % [facility] LABORATORY Neutr Abs (ANC) 5.53 1.70 - [facility] 6.10 [facility] x10(3)/[facility] LABORATORY Lymphocytes % 16.4 % [facility] LABORATORY Lymphocytes Abs 1.2 0.9 - 3.2 [facility] x10(3)/[facility] LABORATORY Monocytes % 9.4 % [facility] Monocyte Abs 0.7 0.3 - 0.9 [facility] x10(3)/[facility] LABORATORY Eosinophils % 0.5 % [facility] LABORATORY Eosinophils Abs 0.0 0.0 - 0.4 [facility] x10(3)/[facility] LABORATORY Basophils % 0.4 % [facility] LABORATORY Basophils Abs 0.0 0.0 - 0.1 [facility] x10(3)/[facility] LABORATORY Immature Gran % 0.40 [...] 0.04 x10(3)/[facility] MAR Y KESSLER [facility] Specimen Anatomical Collection Method Collection Time Receive d Time (Source) Location / / Volume Laterality Blood specimen 07/06/2017 2:20 AM 017 2:33 (specimen) EST AM EST Resulting Agency Comment Spec In Lab Daphne Shahid MD HEMATOLOGY ORDERABLES Performing Organization Address City/State/ZIP Code Phon e Number [place] [phone]OSP[address] LABORATORY Drive (ABNORMAL) Hemogram (07/06/2017 2:20 AM EST) Analysis Performed At Patho logist Time Signature WBC 7.6 4.0 - 9.5 [facility] x10(3)/[facility] LABORATORY RBC 4.52 (L) 4.58 - [facility] 5.54 [facility] x10(6)/[facility] LABORATORY Hemoglobin 13.4 (L) 13.7 - [facility] 16.5 gm/dL [facility] LABORATORY Hematocrit 39.7 (L) 40.5 - [facility] 48.5 % [facility] LABORATORY MCV 87.8 82.9 - [facility] 93.1 [facility] LABORATORY MCH 29.6 27.5 - [facility] 32.1 pg [facility] LABORATORY MCHC 33.8 32.0 - [facility] 35.7 gm/dL [facility] LABORATORY Platelets 189 145 - 357 [facility] x10(3)/[facility] LABORATORY RDWSD 45.6 (H) 36.0 - [facility] 45.0 [facility] LABORATORY RDWCV 14.3 (H) 11.4 - [facility] 13.8 % [facility] LABORATORY MPV 9.1 7.6 - 12.9 [facility] LABORATORY nRBC % Auto 0.0 % [facility] LABORATORY nRBC Abs Auto 0.000 0.000 - [facility] 0.000 [facility] x10(3)/[facility] LABORATORY Specimen Anatomical Collection Method Collection Time Receive d Time (Source) Location / / Volume Laterality Blood specimen 07/06/2017 2:20 AM 017 2:33 (specimen) EST AM EST Resulting Agency Comment Spec In Lab Daphne Shahid MD HEMATOLOGY ORDERABLES Performing Organization Address City/State/[place] [address] (ABNORMAL) APTT (07/06/2017 2:20 AM EST) P athologist Signature PTT 52 (H) 25 - 35 sec [facility] LABORATORY Comment: The recommended therapeutic range for fu ll dose, unfractionated heparin at [facility] is 80 ? [...] Organization Address City/State/ZIP Code Phon e Number [address] POCT Glucose (07/06/2017 2:20 AM EST) athologist Signature POC Glucose 115 65 - 199 [facility] mg/dL [facility] LABORATORY Comment: Supplemental ranges: <140 mg/dL before meals <180 mg/dL all other times of the day Specimen Anatomical Collection Method Collection Time Receive d Time (Source) Location / / Volume Laterality Blood specimen 07/06/2017 2:20 AM 017 2:20 (specimen) EST AM EST Daphne Shahid MD POINT OF CARE TEST ORDERABLE S Performing Organization Address City/[facility]/[place] [address] (ABNORMAL) Cardiac Enzymes (LEB/CGP) (07/06/2017 2:20 AM EST) athologist [facility] Troponin-T 2.13 (H) 0.00 - [place] 0.00 ng/mL [facility] LABORATORY Comment: The 99th percentile [...] additional sample may be indicated. Reference: Third Starr Definition of Myocardial Infarction. Journal of the [place] College [employer] 2012;60:1581-98 CK, Total 129 0 - 200 unit/L [facility] LABORATORY Specimen Anatomical Collection Method Collection Time Receive d Time (Source) Location / / Volume Laterality Blood specimen 07/06/2017 2:20 AM 017 2:33 (specimen) EST AM EST Resulting Agency Comment Spec In Lab Daphne Shahid MD CHEMISTRY ORDERABLES Performing Organization Address City/State/ZIP Code Phon e Number [place] [phone]OSP[address] LAB[address]ORY Drive (ABNORMAL) Hemoglobin A1c (07/06/2017 [...] [id number] Est Avg Gluc See note mg/dL PORTER [...] into estimated average glucose values. ??Diabetes Care 2008:31(8):0194-8348. Specimen Anatomical Collection Method Collection Time Receive d Time (Source) Location / / Volume Laterality Blood specimen 07/06/2017 2:20 AM 017 2:34 (specimen) EST AM EST Resulting Agency Comment Spec In Lab Daphne Shahid MD CHEMISTRY ORDERABLES Performing Organization Address City/State/[place] [address] (ABNORMAL) Lipid Panel (07/06/2017 2:20 AM EST) [facility] Method Time Signature Chol, Total 150 <=239 [place] mg/dL [facility] LABORATORY Triglycerides 129 <=199 [place] mg/dL [facility] LABOR[facility] HDL 32 (L) >=40 [place] mg/dL [facility] LAB[facility] LDL Cholesterol 92 <=190 [place] mg/dL [facility] LABOR[facility]ORY Chol/HDL Ratio 4.7 ratio [facility] LABORATORY Lipid See Note [place] Interpretation [facility] LABOR[facility]ORY Comment: Lipid management should be guided by a p atient? s ASCVD risk, goals and preferences. ACC/AHA Guidelines recommend high intens ity statin if clinical ASCVD or LDL greater than or equal to 190 mg/dL. http://Algisysurl.com/TCT-SFV-Cwfvthdrl Adults aged 40-75 with LDL 70-189 mg/dL should have their 10 year ASCVD risk estimated with the ACC/AHA ASCVD risk es timator http://tools.acc.org/RWZCG-Ehxu-Cbcowhit r/ Statin should be discussed if risk [...] Shahid MD CHEMISTRY ORDERABLES Performing Organization Address City/[facility]/ZIP [facility] Phon e Number [address] POCT Glucose (07/06/2017 1:09 AM EST) athologist Signature POC Glucose 121 65 - 199 [facility] mg[facility]dL [facility]ORY Comment: Supplemental ranges: <140 mg/dL before meals <180 mg/dL all other times of the day Specimen Anatomical Collection Method Collection Time Receive d Time (Source) Location / / Volume Laterality Blood specimen 07/06/2017 1:09 AM 017 1:09 (specimen) EST AM EST Daphne Shahid MD POINT OF CARE TEST ORDERABLE S Performing Organization Address City/[facility]/ZIP [facility] Phon e Number [address] POCT Glucose (07/06/2017 12:06 AM EST) P athologist Signature POC Glucose 147 65 - 199 [facility] mg/dL [facility] Comment: Supplemental ranges: <140 mg/dL before meals <180 mg/dL all other times of the day Specimen Anatomical Collection Method Collection Time Receive d Time (Source) Location / / Volume Laterality Blood specimen 07/06/2017 12:06 7 (specimen) AM EST 12:06 AM EST Daphne Shahid MD POINT OF CARE TEST ORDERABLE S Performing Organization Address City/State/[place] [address] (ABNORMAL) POCT Glucose (07/05/2017 10:56 PM EST) athologist Signature POC Glucose 200 (H) 65 - 199 [place] mg/dL [facility] LABORATORY Comment: Supplemental ranges: <140 mg/dL before meals <180 mg/dL all other times of the day Specimen Anatomical Collection Method Collection Time Receive d Time (Source) Location / / Volume Laterality Blood specimen 07/05/2017 10:56 7 (specimen) PM EST 10:56 PM EST Daphne Shahid MD POINT OF CARE TEST ORDERABLE S Performing Organization Address City/State/[place] [address] (ABNORMAL) POCT Glucose (07/05/2017 10:05 PM EST) athologist Signature POC Glucose 225 (H) 65 - 199 [place] mg/dL [facility] LAB[facility]ORY Comment: Supplemental ranges: <140 mg/dL before meals <180 mg/dL all other times of the day Specimen Anatomical Collection Method Collection Time Receive d Time (Source) Location / / Volume Laterality Blood specimen 07/05/2017 10:05 7 (specimen) PM EST 10:05 PM EST Daphne Shahid MD POINT OF CARE TEST ORDERABLE S Performing Organization Address City/State/[place] [address] (ABNORMAL) POCT Glucose (07/05/2017 9:02 PM EST) athologist Signature POC Glucose 301 (H) 65 - 199 [place] mg/dL [facility] LAB[facility]ORY Comment: Supplemental ranges: <140 mg/dL before meals <180 mg/dL all other times of the day Specimen Anatomical Collection Method Collection Time Receive d Time (Source) Location / / Volume Laterality Blood specimen 07/05/2017 9:02 PM 017 9:02 (specimen) EST PM EST Daphne Shahid MD POINT OF CARE TEST ORDERABLE S Performing Organization Address City/State/ZIP Code Phon e Number [place] [phone] HOSPITAL LAB[address]ATORY Drive XR Chest PA or [...] 474 ms MUSE SYSTEM (Bezet) Calculated P [place] 50 degrees MUSE SYSTEM Calculated R [place] -28 degrees MUSE SYSTEM Calculated T [place] 90 degrees MUSE SYSTEM INTERPRETATION Sinus tachycardia [...] 8:20 PM EST) [facility] gist Method Time Signature Neutrophils % 88.4 % [facility] LABORATORY Neutr Abs (ANC) 9.08 (H) 1.70 - [facility] 6.10 [facility] x10(3)/[facility] L LABORATORY Lymphocytes % 7.0 % [facility] LABORATORY Lymphocytes Abs 0.7 (L) 0.9 - 3.2 [facility] x10(3)/[facility] LABORATORY Monocytes % 3.7 % [facility] LABORATORY Monocyte Abs 0.4 0.3 - 0.9 [facility] x10(3)/[facility] LABORATORY Eosinophils % 0.1 % [facility] LABORATORY Eosinophils Abs 0.0 0.0 - 0.4 [facility] x10(3)/[facility] LABORATORY Basophils % 0.2 % [facility] LABORATORY Basophils Abs 0.0 0.0 - 0.1 [facility] x10(3)/[facility] LABORATORY Immature Gran % 0.60 % [place] [...] Abs 0.06 (H) 0.00 - 0.04 x10(3)/[facility] LABORATORY Specimen Anatomical Collection Method Collection Time Receive d Time (Source) Location / / Volume Laterality Blood specimen 07/05/2017 8:20 PM 017 8:27 (specimen) EST PM EST Resulting Agency Comment Spec In Lab Daphne Shahid MD HEMATOLOGY ORDERABLES Performing Organization Address City/State/[place] [address] (ABNORMAL) Hemogram (07/05/2017 8:20 PM EST) Analysis Performed At Patho logist Time Signature WBC 10.3 (H) 4.0 - 9.5 [facility] x10(3)/[facility] LABORATORY RBC 4.64 4.58 - [facility] SU 5.54 [facility] x10(6)/[facility] LABORATORY Hemoglobin 14.1 13.7 - [facility] 16.5 gm/dL [facility] LABORATORY Hematocrit 40.8 40.5 - [facility] 48.5 % [facility] LABORATORY MCV 87.9 82.9 - [facility] 93.1 [facility] LABORATORY MCH 30.4 27.5 - [facility] SU 32.1 pg [facility] LABORATORY MCHC 34.6 32.0 - [facility] 35.7 gm/dL [facility] LABORATORY Platelets 204 145 - 357 [facility] x10(3)/[facility] LABORATORY RDWSD 46.1 (H) 36.0 - [facility] SU 45.0 [facility] LABORATORY RDWCV 14.5 (H) 11.4 - [facility] SU 13.8 % [facility] LABORATORY MPV 9.7 7.6 - 12.9 [facility] LABORATORY nRBC % Auto 0.0 % [facility] LABORATORY nRBC Abs Auto 0.000 0.000 - [place] 0.000 [facility] x10(3)/[facility] LABORATORY Specimen Anatomical Collection Method Collection Time Receive d Time (Source) Location / / Volume Laterality Blood specimen 07/05/2017 8:20 PM 017 8:27 (specimen) EST PM EST Resulting Agency Comment Spec In Lab Daphne Shahid MD HEMATOLOGY ORDERABLES Performing Organization Address City/[facility]/ZIP Code Phon e Number [address] APTT (07/05/2017 8:20 PM EST) athologist Signature PTT 32 25 - 35 sec [facility] LABORATORY Comment: The recommended therapeutic range for fu ll dose, unfractionated heparin at [facility] is 80 ? [...] MD HEMATOLOGY ORDERABLES Performing Organization Address [facility] [place] [address] (ABNORMAL) Cardiac Enzymes (LEB/CGP) (07/05/2017 8:20 PM EST) athologist Signature Troponin-T 2.11 (H) 0.00 - [facility] 0.00 ng/mL [facility] LABORATORY Comment: The 99th percentile [...] additional sample may be indicated. Reference: Third Starr Definition of Myocardial Infarction. Journal of the [place] College of Cardiology 2012;60:1581-98 CK, Total 149 0 - 200 unit/L [facility] LABORATORY Specimen Anatomical Collection Method Collection Time Receive d Time (Source) Location / / Volume Laterality Blood specimen 07/05/2017 8:20 PM 017 8:27 (specimen) EST PM EST Resulting Agency Comment Spec In Lab Daphne Shahid MD CHEMISTRY ORDERABLES Performing Organization Address City/[facility]/[place] [address] (ABNORMAL) Magnesium (07/05/2017 8:20 PM EST) P athologist Signature Magnesium 0.68 (L) 0.69 - 1.07 [facility] mmol/L [facility] LABORATORY Specimen Anatomical Collection Method Collection Time Receive d Time (Source) Location / / Volume Laterality Blood specimen 07/05/2017 8:20 PM 017 8:27 (specimen) EST PM EST Resulting Agency Comment Spec In Lab Daphne Shahid MD CHEMISTRY ORDERABLES Performing Organization Address City/State/ZIP [facility] [place] [address] (ABNORMAL) Basic Metabolic Panel (non-fasting) (07/05/2017 8:20 PM EST) P athologist Signature Glucose Lvl 321 (H) 65 - 199 [facility] mg/dL [facility] LABORATORY Comment: Diabetes: >=200 mg/dL plus symp toms BUN 20 10 - 20 mg/dL [facility] LABORATORY Creatinine 1.12 0.80 - 1.50 mg/dL [facility] LABORATORY Sodium 139 135 - 145 mmol/L [facility] LABORATORY Potassium 3.8 3.5 - 5.0 mmol/L [facility] [...] or in patients with acute kidney failure. http://[employer]/DHnkdep http://[employer]/DHMCnkf Specimen Anatomical Collection Method Collection Time Receive d Time (Source) Location / / Volume Laterality Blood specimen 07/05/2017 8:20 PM 017 8:27 (specimen) EST PM EST Resulting Agency Comment Spec In Lab Daphne Shahid MD CHEMISTRY ORDERABLES Performing Organization Address City/State/[place] [address] (ABNORMAL) POCT Glucose (07/05/2017 7:32 PM EST) P athologist Signature POC Glucose 296 (H) 65 - 199 [facility] mg/dL [facility] LABORATORY Comment: Supplemental ranges: <140 mg/dL before meals <180 mg/dL all other times of the day Specimen Anatomical Collection Method Collection Time Receive d Time (Source) Location / / Volume Laterality Blood specimen 07/05/2017 7:32 PM 017 7:32 (specimen) EST PM EST Daphne Shahid MD POINT OF CARE TEST ORDERABLE S Performing Organization Address City/State/[place] [address] CARDIAC CATHETERIZATION (07/05/2017 6:47 PM EST) Specimen (Source) Anatomical Location Collection Method / Collectio n Time Received Time / Laterality Volume Narrative CARDIOMAC SYSTEM - 07/05/2017 7:27 PM ES T ?[facility] ? Cardiac Cathete rization/Intervention Report ? Patient Name: Natalya, Gregory ? Procedure Date: 07/05/2017 ? A #: [id number] ? Primary Physician: Jet Mckenna ? Case #: [id number] ? File Name: [id number] ? Catheterization Order Number: [id number] ? [facility] ? Final Report [place], [place] ? Patient Name: ? Gregory Natalya ?ID#: ?[id number] ? : ?1945 ? Procedure Date: ? [...] presented with: non -STEMI (w/i 7 days). [place] ?[employer] angina c lass was IV. 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 ? Jet Mckenna M.D. ? Electronically Signed by: Jet bunch M.D. ? Report Finalized: 07/05/2017 ??19:23 ? Report Last Ammended: 10/26/2017 ??10:29 ? Procedure Note Jet Mckenna MD - 10/26/2017Formatt ing of this note might be different from the original. [facility] Cardiac Catheterization/Intervention Re port Patient Name: Natalya Gregory Procedure Date: 07/05/2017 A #: [id number] Primary Physician: Jet Mckenna Case #: [id number] File Name: [id number] Catheterization Order Number: [id number] [facility] Final Report [place], [place] Patient Name: Gregory Hoang ID#: [id number] : 1945 Procedure Date: July 05, [...] presented with: non-STEMI ( w/i 7 days). [place] [employer] angina class was IV. 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 Jet Mckenna M.D. Electronically Signed by: [...] E ? (Age): 1945(72y) Med Rec#: ? [id number] ?Sex: ?M ? Site Loc: ? [facility] ?Ht / Wt: ??173(cm)/86(kg) Pt. Loc: ?CCU ? BSA: ?2 Study Date: ?? 07/05/2017 ?Pt. Type: Inpatient Tape: ? Referring: Daphne Shahid ([id number]) Referring: MANDA ALCANTAR Reading: Blade Preston ([id number]) Still Cleaner Tube: Dayami Paula BA, [facility] Diagnosis: *ICD-10-PCS Non-ST elevation (NSTEMI) m [...] E-wave Vmax ?0.8 ?m/sec ? MV deceleration [id number] ?msec ? MV A-wave Vmax ?0.8 ?m/sec [...] ? Mid-Inferior ?Akinetic ? Mid-Inferoseptal ?Hypokinetic ? [place]-Septal ? Akinetic ? [place]-Anterior ? Hypokinetic ? [place]-Lateral ?Hypokinetic ? [place]-Inferior ? Akinetic ? [place]-Tip ?Akinetic ? This report has been electronically sign ed by: _ Blade Preston MD ? 07/06/2017 08 :53:15 Images reviewed and interpretation verif ied [facility] Cardiac Ultrasound Laboratory Procedure Note Blade Preston MD - 07/06/2017Formatt ing of this note might be different from the original. Procedure: Transthoracic Echocardiogram Patient: NATALYA MCBRIDE(Age): [birth year]72y) Med Rec#: [id number] Sex: M Site Loc: [facility] Ht / Wt: 173(cm)/86(kg) Pt. Loc: [facility] BSA: 2 Study Date: 07/05/2017 Pt. Type: Inpatie nt Tape: Referring: Daphne Shahid ([id number]) Referring: MANDA ALCANTAR Reading: Blade Preston ([id number]) Still Cleaner Tube: Dayami Paula BA, [facility] Diagnosis: *ICD-10-PCS Non-ST elevation (NSTEMI) m [...] MV E-wave Vmax 0.8 m/sec MV deceleration [id number] msec MV A-wave Vmax 0.8 m/sec MV [...] Hypokinetic Mid-Posterolateral Hypokinetic Mid-Inferior Akinetic Mid-Inferoseptal Hypokinetic [place]-Septal Akinetic [place]-Anterior Hypokinetic [place]-Lateral Hypokinetic [place]-Inferior Akinetic [place]-Tip Akinetic This report has been electronically sign ed by: _ Blade Preston MD 07/06/2017 08:53:15 Images reviewed and interpretation [facility] Cardiac Ultrasound Laboratory Daphne Shahid MD ECHO ORDERABLES Performing Organization Address City/State/ZIP Code Phon e Number [facility] Differential, Automated (07/05/2017 4:55 PM EST) P athologist Signature Neutrophils % 77.0 % [facility] LABORATORY Neutr Abs (ANC) 5.26 1.70 - [facility] 6.10 [facility] x10(3)/[facility] LABORATORY Lymphocytes % 13.3 % [facility] LABORATORY Lymphocytes Abs 0.9 0.9 - 3.2 [facility] x10(3)/[facility] LABORATORY Monocytes % 8.2 % [facility] LABORATORY Monocyte Abs 0.6 0.3 - 0.9 [facility] x10(3)/[facility] LABORATORY Eosinophils % 0.7 % [facility] LABORATORY Eosinophils Abs 0.0 0.0 - 0.4 [facility] x10(3)/[facility] LABORATORY Basophils % 0.4 % [facility] LABORATORY Basophils Abs 0.0 0.0 - 0.1 [facility] x10(3)/[facility] LABORATORY Immature Gran % 0.40 [...] Melisa Gran Abs 0.03 0.00 - 0.04 x10(3)/[facility] Y [facility] LABORATORY Specimen Anatomical Collection Method Collection Time Receive d Time (Source) Location / / Volume Laterality Blood specimen 07/05/2017 4:55 PM 017 5:24 (specimen) EST PM EST Resulting Agency Comment Spec In Lab Daphne Shahid MD HEMATOLOGY ORDERABLES Performing Organization Address City/State/[place] [address] (ABNORMAL) Hemogram (07/05/2017 4:55 PM EST) Analysis Performed At Patho logist Time Signature WBC 6.8 4.0 - 9.5 [facility] x10(3)/[facility] LABORATORY RBC 4.67 4.58 - [place] 5.54 [facility] x10(6)/[facility] LABORATORY Hemoglobin 14.0 13.7 - [facility] gm/dL [facility] LABORATORY Hematocrit 41.0 40.5 - [facility] 48.5 % [facility] LABORATORY MCV 87.8 82.9 - [facility] 93.1 [facility] LABORATORY MCH 30.0 27.5 - [place] 32.1 pg [facility] LABORATORY MCHC 34.1 32.0 - [facility] 35.7 gm/dL [facility] LABORATORY Platelets 197 145 - 357 [facility] x10(3)/[facility] LABORATORY RDWSD 46.4 (H) 36.0 - [facility] SU 45.0 [facility] LABORATORY RDWCV 14.5 (H) 11.4 - [facility] SU 13.8 % [facility] LABORATORY MPV 9.7 7.6 - 12.9 [facility] nRBC % Auto 0.0 % [facility] LABORATORY nRBC Abs Auto 0.000 0.000 - [place] SU 0.000 [facility] x10(3)/[facility] LABORATORY Specimen Anatomical Collection Method Collection Time Receive d Time (Source) Location / / Volume Laterality Blood specimen 07/05/2017 4:55 PM 017 5:24 (specimen) EST PM EST Resulting Agency Comment Spec In Lab Daphne Shahid MD HEMATOLOGY ORDERABLES Performing Organization Address City/State/[place] [address] (ABNORMAL) Cardiac Enzymes (LEB/CGP) (07/05/2017 4:55 PM EST) P athologist Signature Troponin-T 1.69 (H) 0.00 - [facility] 0.[facility] ng/mL [facility] LABORATORY Comment: The 99th percentile [...] additional sample may be indicated. Reference: Third Starr Definition of Myocardial Infarction. Journal of the [place] [employer] 2012;60:1581-98 CK, Total 191 0 - 200 unit/L [facility] LABORATORY Specimen Anatomical Collection Method Collection Time Receive d Time (Source) Location / / Volume Laterality Blood specimen 07/05/2017 4:55 PM 017 5:56 (specimen) EST PM EST Resulting Agency Comment Spec In Lab Daphne Shahid MD CHEMISTRY ORDERABLES Performing Organization Address City/[facility]/[place] [address] (ABNORMAL) pro-Brain Natriuretic Peptide (07/05/2017 4:55 PM EST) P athologist Signature ProBNP 1,598 (H) <=125 [facility] pg/mL [facility] LABORATORY Specimen Anatomical Collection Method Collection Time Receive d Time (Source) Location / / Volume Laterality Blood specimen 07/05/2017 4:55 PM 017 5:24 (specimen) EST PM EST Resulting Agency Comment Spec In Lab Daphne Shahid MD CHEMISTRY ORDERABLES Performing Organization Address City/[facility]/[place] [address] Magnesium (07/05/2017 4:55 PM EST) athologist Signature Magnesium 0.78 0.69 - 1.07 [facility] mmol/L [facility] Specimen Anatomical Collection Method Collection Time Receive d Time (Source) Location / / Volume Laterality Blood specimen 07/05/2017 4:55 PM 017 5:24 (specimen) EST PM EST Resulting Agency Comment Spec In Lab Daphne Shahid MD CHEMISTRY ORDERABLES Performing Organization Address City/State/[place] [address] (ABNORMAL) Basic Metabolic Panel (non-fasting) (07/05/2017 4:55 PM EST) athologist Signature Glucose Lvl 230 (H) 65 - 199 [facility] mg/dL [facility] Comment: Diabetes: >=200 mg/dL plus symp toms BUN 19 10 - 20 mg/dL [facility] Creatinine 1.04 0.80 - 1.50 mg/dL [place] [...] or in patients with acute kidney failure. [email or web address] [email or web address] Specimen Anatomical Collection Method Collection Time Receive d Time (Source) Location / / Volume Laterality Blood specimen 07/05/2017 4:55 PM 017 5:24 (specimen) EST PM EST Resulting Agency Comment Spec In Lab Daphne Shahid MD CHEMISTRY ORDERABLES Performing Organization Address City/[facility]/[place] [address] (ABNORMAL) APTT (07/05/2017 4:55 PM EST) P athologist Signature PTT 41 (H) 25 - 35 sec [facility] Comment: The recommended therapeutic range for fu ll dose, unfractionated heparin at [facility] is 80 ? [...] Shahid MD HEMATOLOGY ORDERABLES Performing Organization Address City/[facility]/[place] [address] (ABNORMAL) POCT Glucose (07/05/2017 4:53 PM EST) P athologist Signature POC Glucose 208 (H) 65 - 199 [facility] mg/dL [facility] Comment: Supplemental ranges: <140 mg/dL before meals <180 mg/dL all other times of the day Specimen Anatomical Collection Method Collection Time Receive d Time (Source) Location / / Volume Laterality Blood specimen 07/05/2017 4:53 PM 017 4:53 (specimen) EST PM EST Daphne Shahid MD POINT OF CARE TEST ORDERABLE S Performing Organization Address City/[facility]/[place] [address] EKG 12 Lead (07/05/2017 4:32 PM EST) Component Value Ref Range Test Analysis Performed Pathologis t Method Time At Signature Ventricular rate 97 BPM MUSE SYSTEM Atrial Rate 97 BPM MUSE SYSTEM P-R Interval 148 ms MUSE SYSTEM QRS Duration 96 ms MUSE SYSTEM Q-T Interval 364 ms MUSE SYSTEM QTC Calculated 462 ms MUSE SYSTEM (Bezet) Calculated P [place] 48 degrees MUSE SYSTEM Calculated R [place] -33 degrees MUSE SYSTEM Calculated T [place] 98 degrees MUSE SYSTEM INTERPRETATION Normal sinus [...] Coronary atherosclerosis of unspecified type of vessel, shoal[place] or graft Cardiomyopathy, ischemic Other specified forms [...] 25 g Intravenous, ONCE, 1 dose, On Wed07/08/17 at 2100, PRN as needed for volume [...] dose on Wed07/07/17 at 2100, Until Discontinued, [place] teeth, Routine Given 07/08/2017 10:06 PM EST [...] or norepinephrine is ineffective. Call pager # [phone] if initiated. Rate/Dose Change 07/08/2017 7:01 PM [...] 3:01 AM EST 8 Units Bolus from Bag 07/08/2017 2:04 AM EST 8 Units insulin regular human Bolus from Bag 07/08/2017 4:54 AM EST 8 Units (HumuLIN;NovoLIN) [...] S tarting on 07/11/17 at 1619, Until 07/14/17 at 1639, Elevated Heart Rate, for HR>120, ple ase hold for SBP<90 or MAP<60. meTOPROLOL (LOPRESSOR) injection 5 mg Given 07/05/2017 5:01 PM EST 5 mg 5 mg, Intravenous, ONCE, 1 dose, On 07/05/17 at 1715 meTOPROLOL (LOPRESSOR) injection 5 mg [...] if phenyleprine and/or vasopressin ineffective.Call pager # [phone] if initiated., Routine Rate/Dose Change 07/09/2017 1:24 [...] Intravenous, 2 TIMES DAILY, First dose on Wed07/05/17 at 2100, Until Discontinued, Routine Given 07/06/2017 [...] 2.0 L/min/M2. Maximum volume 2 L. Call hide house supervisor for additional fluid orders: pager #[phone]. Rate/Dose Verify 07/08/2017 4:00 AM EST 100 [...] 400 mg 0841 (Given - Provider: Em Jones, RN) 0922 (Given - Provider: Myrna triplett RN) 400 mg, Oral, DAILY, First dose on Wed09/13/16 at 0745, Until Discontinued, Routine aspirin chewable tablet 81 mg(Linked Group 1) 0821 (Gi cody - Provider: More Luther RN) 0841 (Given - Provider: Em Jones , VAMSI)0900 [...] Ale Rangel, VAMSI)0155 (Stopped - Provider: Ale Rangel, VAMSI)0901 (New Bag - Provider: Em Jones, VAMSI)0931 [...] mL (COMPLETED ) 0700 (Given - Provider: Portilol Jones RN - Comment: five ennly apaced [...] (COMPLETED ) 0755 (Given - Provider: Portillo Jones, VAMSI - Comment: 10 evenly spaced injections throughout [...] triplett RN)1200 (Not Given - Provider: Myrna Young, VAMSI - Reason: Patient/family refused) 0-10 Units, Subcutaneous, 3 TIMES DAILY WITH MEALS, First dose (after last modification) on Wed07/13/17 at 1700, Until Discontinued, MEAL ASSOCIATED Give 1 unit for every 8 grams carbohydrate. Hold if not eating or if BS <90, Routine insulin lispro (humaLOG) VIAL injection 0-12 Units(lAix ponce Group 2) 0000 (Not Given - [...] Luther RN)2201 (Given - Provider: Ale Rangel, RN) 0615 (Given - Provider: Ale Rangel [...] 20 mEq 1003 (Given - Provider: More Ltuher RN) 0841 (Given - Provider: Em Jones [...] RN)1200 (Rate/Dose Change - Provider: More Luther RN)195 (Rate/Dose Change - Provider: Elba Valverde RN [...] 2018 (New Bag - Provider: Ale Rangel, RN) rder maintenance dose 0.5 mg/min. Use [...]
Routine documented in this encounter Care Teams Superintendent Custodian Janitor Relationship Specialty Start Date End Date Lovely Vicente MD PCP - General 04/16/[address] [place] [address] documented as of this encounter
--- OUTSIDE RECORDS SUMMARY | 2022-03-11 11:33 | XMS_ITS | Encounter Summary ---
:1945 [place] [address] Care Team Providers Name Role Phone Lovely Vicente MD Primary Care Provider Reason for Visit Auth/Cert Specialty Diagnoses / Procedures Referred By Contact Refer red To Contact Diagnoses STEMI (ST elevation myocardial infarction) NSTEMI STEMI Procedures CARDIAC CATHETERIZATION NAYE IPI Referral ID Status Reason Start Date Expiration Date Visits Requ ested Visits Authorized [id number] 1 1 Encounter Details Date Type Department Care Team Description 07/07/2017 Anesthesia Event Main Operating Room Yifan Jaime MD [facility] [place] [address] [facility] Ginny Murray MD [facility] [place] [address] [facility] [place] [address] Anesthesia Record Procedure Summary Procedure Name [...] 2342 LDA Cath/EP Sheath 07/05/17; 0606; 8 Haitian 07/05/17 0606 by [id number] by (Fr); Right; Femoral [place], Yane Cook, RN PIV 07/05/17; 1720; median 07/05/17 1720 by 07/11/17 2355 by vein (underside of arm), Prior, Yanet Maza, VAMSI Crum, Angela Gomes, left; 18 gauge; 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; 07/11/17; 2355 Intra-Aortic Balloon 07/05/17; [...] 07/09/17 0556 by Adjunct (2) (OA); ETT Gniny Murray MD Miller, Carrie L, Type: Cuffed; ETT Size: PAINT TINTER 8 mm; Santiago Blade: 2; Notes: Asleep, [...] Murray MD - 07/08/2017 5:08 PM EST [facility] Department of Anesthesiology Post-procedure Note Patient: Don Fatima Procedure Summary Date Anesthesia Start Anesthesia Stop Room / Location 07/07/17 1335 1836 [facility] OR [facility] MAIN OR Procedure Diagnosis Surgeon Responsible Provider @CABG, USING ARTERIAL GRAFT;SINGLE ARTERIAL GRAFT (WRVU 33.75) (N/A Chest); @CABG, TWO VENOUS GRAFTS & ARTERIAL GRAFT (WRVU 7.93) (N/A Chest); ENDOSCOPIC HARVEST VEIN(S) FOR CABG (WRVU 0.31) (Right Leg) (CAD) Yuan Freitas MD Hartman, Gregg S, MD All Anesthesia Providers: Anesthesiologist: Yifan Perez MD Senior Web Architect: Ginny Murray MD Most Recent Vitals: 07/08/17 [...] at [facility] ENDOSCOPY ??? PRO THYROIDECTOMY 03/28/2013 THYROIDECTOMY, TOTAL OR COMPLETE performed by Manny Mcknight MD at [facility] MAIN OR Social History Substance Use [...] Nobles MD [facility] [address] [place], [place] [address] (Wo rk) 05/28/2022 Appointment Cardiology Zulma Dolan MD [facility] [place], [place] [address] (Wo rk) 05/28/2022 Laboratory Appointment Lab 05/28/2022 Office Visit Cardiology Zulma Dolan MD [facility] [place] [address] Liz Poole PA [facility] [place] [address] 06/10/2022 Office Visit Dermatology Laura Scherer MD [facility] DR TEJA GR-DERMAT OLOGY [place], [place] [address] (Wo rk) documented as of [...] mcg/kg/min 9.9 mL/hr CONTINUOUS PRN, Starting on Wed EST 07/07/17 at 1743, Until Wed07/07/17 at 1836, Anesthesia [...] mg documented in this encounter Care Teams Tie Loader Relationship Specialty Start Date End Date Lovely Vicente MD PCP - General 04/16/15 [facility] [address] [place] [address] documented as of this encounter
--- OUTSIDE RECORDS SUMMARY | 2022-03-11 11:33 | XMS_ITS | Encounter Summary ---
:1945 Author Organization [facility] Address [facility] [place] [address] Care Team Providers Name Role Phone Lovely Vicente MD Primary Care Provider Reason for Visit Auth/Cert Specialty Diagnoses / Procedures Referred By Contact Refer red To Contact Diagnoses STEMI (ST elevation myocardial infarction) NSTEMI STEMI Procedures CARDIAC CATHETERIZATION NAYE IPI Referral ID Status Reason Start Date Expiration Date Visits Requ ested Visits Authorized [id number] 1 1 Encounter Details Date Type Department Care Team Description 07/07/2017 Surgery Main Operating Room Yuan Webber, @ CABG, USING ARTERIAL Barbara Ocampo MD GRAFT;SINGLE ARTERIAL Hospital [facility] GRAFT (WRVU 33.75) [facility] [address] [place] [address] SURGERY [phone] [place], [place] [address] (Wo rk) Social History [...] in this encounter Discharge Summaries Martha Teague, PETROLEUM GEOLOGIST - 07/14/2017 9:38 AM EST Inpatient - Discharge Summary Patient Name: Gregory oHang Patient Age: 72 y.o. Birthdate: 1945 Language: Sri Lankan Race: White Ethnicity: Not nor Admit Date: [...] , @ 1:20p Patient to follow-up with Pet Caretaker/heart failure team in one week. An appointment will be made for you. You may call [phone] Patient to follow-up with Cardiac Surgery, Dr. Yuan Webber, in ~ 4 weeks with CXR, EKG. Inpatient Provider Contact Information: [facility] Section of Cardiac Surgery [facility] [address] FAX [phone] Discharge Diagnoses (Hospital Problems) Primary Diagnoses: CAD [...] SETUP performed by Manny Mcknight MD at [facility] OR ??? PRO CABG, ARTERIAL, SINGLE N/A 07/07/2017 @CABG, USING ARTERIAL GRAFT;SINGLE ARTERIAL GRAFT (WRVU 33.75) performed by Yuan Webber MD at [facility] OR ??? PRO CABG, ARTERY-VEIN, TWO N/A 07/07/2017 @CABG, TWO VENOUS GRAFTS & ARTERIAL GRAFT (WRVU 7.93) performed by Yuan Webber MD at [facility] OR ??? PRO COLONOSCOPY, REMV LESN, SNARE 01/16/2014 COLONOSCOPY, POLYPECTOMY, REMOVAL LESION BY SNARE performed by Nohemi Jaimes MD at [facility] ENDOSCOPY ??? PRO ENDOSCOPY W/VIDEO-ASST VEIN HARVEST, CABG Right 07/07/2017 ENDOSCOPIC HARVEST VEIN(S) FOR CABG (WRVU 0.31) performed by Yuan Webber MD at [facility] OR ??? PRO THYROIDECTOMY 03/28/2013 THYROIDECTOMY, TOTAL OR COMPLETE performed by Manny Mcknight MD at [facility] OR Prior To Admission Medications Prescriptions Prior to Admission Medication Sig Dispense Refill Last Dose ??? levothyroxine (SYNTHROID) 175 mcg Tablet Take 1 tablet by mouth daily. 90 tablet 3 07/05/2017 [id number] ??? ascorbic acid, vitamin C, (VITAMIN C) [...] Gregory Hoang was admitted to [facility] on 07/05/2017 via the Cardiology Service. During his hospital course, he was taken emergently to the optical laboratory manager for an ongoing STEMI. An [...] not take or discontinue any prescription or jfso-yvf-lpxkfnx medications without asking your doctor or pharmacist [...] Yuan Webber and/or the Cardiac Surgery Physician Sales And Service Specialist Team may be reached at . [...] Dr. Yuan Webber. You may use a [place] Track or treadmill but avoid any pulling [...] friends, go to a movie, go to islam, etc. Heavy activities: No hunting, skiing, jogging, snow shoveling, snowmobiling, lawn mowing, swimming, golf or tennis until after your return appointment with the surgeon. Do not ride motorcycles, Xuba's tractors or horses. Avoid the use of [...] should resume a low fat, low cholesterol, [place] Heart Association Diet/Diabetic diet. Driving: No driving [...] , @ 1:20p Patient to follow-up with Pet Caretaker/heart failure team in one week. Appointment will be made for you. You may call [phone] Patient to follow-up with Cardiac Surgery, Dr. Yuan Webber, in ~ 4 weeks with CXR, EKG. Cardiac Rehabilitation: Gregory Hoang was seen today regarding participation in the outpatient Phase 2 Cardiac Rehabilitation at [facility]. The patient agrees to a referral to this program. The referral will be sent at discharge and the patient should be contacted by the Program within 1- 2 weeks from discharge. ?? Future Appointments and Orders Future Appointments Provider Department Dept Phone 09/07/2017 3:00 PM LAB, THREE L Lab 3L [facility] [phone] 09/07/2017 4:00 PM Luz Prescott MD Endocrinology at [facility] [phone] Future Orders Complete By Expires EKG 12 Lead [EKG1 Custom] 08/14/2017 02/13/2018 Process Instructions: Scheduling Instructions: Questions: Which DH location will this be performed?: [place] Is a rhythm strip needed?: No If EKG Reason is Pre-op Evaluation, indicate diagnosis for surgery.: XR Chest PA & Lateral (Generic) [[id number] Custom] 08/14/2017 02/13/2018 Process Instructions: Scheduling Instructions: Questions: Where will study be performed?: [facility] Portable exam?: Reason for exam and clinical history: CABG x 3 Other pertinent information: Stat read required?: Date of injury if applicable: Requested Time: Referral to Cardiac Rehab [FZD114 Custom] As directed Process Instructions: If no progress note charted, please enter Clinical details in comments. Scheduling Instructions: Questions: My question or request is: s/p CABG. Cardiac rehab at [facility] Referral to Home Health - at DISCHARGE [EHE2469 CPT(R)] As directed Process Instructions: Scheduling Instructions: Comments: DOCUMENTATION FOR VNA SERVICES (INCLUDING THOSE PATIENTS WITH MEDICARE COVERAGE REQUIRING HOME VNA SERVICES AND/OR HOSPICE SERVICES) PATIENT'S LOCATION: Gregory Hoang [address] [place] [address] [place] [id number] (home) Telephone Information: Master Steam Yacht's Name: self In discussion with the attending physician, it is certified that this patient is under their care and that they, or a Nurse Practitioner, or Physician Sales And Service Specialist who is working directly with them, [...] [facility] ([facility] [place] [facility] in [place] PHONE: [phone] FAX: [phone] RN orders: Cardiopulmonary assessment, incisional assessment, assess vital signs, assessment of rehab progress, medication management and effectiveness, home safety evaluation. Please draw INR if indicated and send result to:Dr Vicente [phone] PT ORDERS: Continue rehab for endurance, gait stability and strength with mobility and transfers. Home safety evaluation. Home exercise program if appropriate. Start of Care Date:24-48 hours after discharge SPECIAL INSTRUCTIONS: For any follow up questions, needs, or issues please call the Cardiac Surgery Office at [phone] FOR MEDICARE ONLY: (please delete this section [...] Questions: Agency name and contact information: [facility] Patient location post discharge: home What services are requested: Registered Nurse Physical Therapy Start date: Responsible MD post discharge contact info: PCP Arrangements for VNA/home care: As above. VN RN OR PCP TO PLEASE REMOVE CHEST TUBE SUTURES ON OR AFTER 07/17/2017 Signed: Martha Teague APRN [facility] Section of Cardiac Surgery [facility] [address] FAX [phone] Date: 07/14/2017 CC: MD Ivania Cr Betsy, PA [address] [place] [phone] documented in this encounter Discharge Instructions Discharge [...] not take or discontinue any prescription or fphm-hfl-dsrxxyo medications without asking your doctor or pharmacist [...] Yuan Webber and/or the Cardiac Surgery Physician Sales And Service Specialist Team may be reached at . [...] Dr. Yuan Webber. You may use a [place]ph[place] Track or treadmill but avoid any pulling [...] friends, go to a movie, go to islam, etc. ?? Heavy activities: No hunting, skiing, jogging, snow shoveling, snowmobiling, lawn mowing, swimming, golf or tennis until after your return appointment with the surgeon. Do not ride motorcycles, Xuba's tractors or horses. Avoid the use of [...] should resume a low fat, low cholesterol, [place] Heart Association Diet/Diabetic diet. ?? Driving: No [...] @ 1:20p ?? Patient to follow-up with Pet Caretaker/heart failure team in one week. An appointment has been made for you, you can call [phone] ?? Patient to follow-up with Cardiac Surgery, Dr. Yuan Webber, in ~ 4 weeks with CXR, EKG. ? Cardiac Rehabilitation: Gregory Hoang??was seen today regarding participation in the outpatient Phase 2 Cardiac Rehabilitation at [facility]. ?? The patient agrees to a referral to this program.? The referral will be sent at discharge and the patient should be contacted by the Program within 1- 2 weeks from discharge. ? Future Appointments and Orders Future Appointments Provider Department Dept Phone ?? 09/07/2017 3:00 PM LAB, THREE L Lab 3L [facility] [phone] ?? 09/07/2017 4:00 PM Luz Prescott MD Endocrinology at [facility] [phone] Future Orders Complete By Expires ?? EKG 12 Lead [EKG1 Custom] 08/14/2017 02/13/2018 ?? Process Instructions: ? Scheduling Instructions: ? Questions: ? Which location will this be performed?: [facility] ?? Is a rhythm strip needed?: No ?? If EKG Reason is Pre-op Evaluation, indicate diagnosis for surgery.: ?? XR Chest PA & Lateral (Generic) [[id number] Custom] 08/14/2017 02/13/2018 ?? Process Instructions: ? Scheduling Instructions: ? Questions: ? Where will study be performed?: [facility] ?? Portable exam?: ?? Reason for exam and clinical history: CABG x 3 ?? Other pertinent information: ?? Stat read required?: ?? Date of injury if applicable: ?? Requested Time: ?? Referral to Cardiac Rehab [OVB120 Custom] As directed ? Process Instructions: ?? If no progress note charted, please enter Clinical details in comments. ?? Scheduling Instructions: ? Questions: ? My question or request is: s/p CABG. Cardiac rehab at [facility] ? Arrangements for VNA/home care: As above. [...] RN - 07/14/2017 2:34 PM EST The patient/major account representative has been provided a list of Home Health Agencies/DME vendors which serve their preferred geographic area. A letter describing our affiliations was reviewed with them and theywere educated about their right to choose where referrals are placed. Patient requests referral to [facility] [employer]. PHONE: [phone] FAX: [phone] Expected date of discharge: 07/14 Referral routed to the Inpatient Auditor for matching with agency/vendor and to provide [...] [facility] Endocr[facility] Diabetes Management Pager [phone] minutes of this 35 minute visit was spent with the patient in counseling on diabetes and treatment plan, reviewing all glucose and insulin data as well as relevant laboratory results with the patient, and coordination of care on the inpatient unit including nursing and primary team. Zulma Power RN - 07/14/2017 10:30 AM EST The patient/major account representative has been provided a list of Home Health Agencies/DME vendors which serve their preferred geographic area. A letter describing our affiliations was reviewed with them and theywere educated about their right to choose where referrals are placed. Patient requests referral to : Yasmani [facility] ([facility] [place] [facility]-is in [place] PHONE: [phone] FAX: [phone]. Expected date of discharge: 07/14/17 Referral routed to the Inpatient Auditor for matching with agency/vendor and to provide [...] [facility] Endocr[facility] Diabetes Management Pager [phone] 15 minutes of this 25 minute visit [...] infiltration/extravasation Discussed plan of care with MAINTENANCE EQUIPMENT OPERATOR and RN. Elevate exrtemity and apply intermittent Warm compresses. Name of MD contacted Dr. Shaw Brown 07/13/2017 @ 0603 Name of RN contacted Ale Rangel RN Name of Pharmacist if consulted NA Name of Plastics MD ( if consulted) NA (Mandatory photo for infiltrations/ extravasations scoring a stage 2 or greater, but recommended forstage 1)( include measuring tape and identifier in the photo) METAL FLOORING INSTALLER CARING FOR THIS PATIENT WILL CONTINUE TO [...] measuring tape and identifier in the photo) METAL FLOORING INSTALLER CARING FOR THIS PATIENT WILL CONTINUE TO [...] regard to both infiltrates addressed by this designer/writer.All of MrMadiha Hoang's responses were entirely appropriate. Images of infiltrates attached here. L Mratha Teague, PETROLEUM GEOLOGIST - 07/13/2017 8:01 AM EST Cardiac Surgery Progress Note: ID: [id number] 72 year old male POD#6 s/p CABGx3 [...] discharge. ?? I have met with the patient/major account representative to discuss discharge planning needs. I have provided the [facility], Office of Care Management letter from the Health Care Aide pertaining to rehab referrals. I have also provided a letter describing our affiliations within the [facility] and educated them about their right to choose where referrals are placed. ?? I reviewed the different levels of rehab including SNF, swing, acute and LTAC with the patient/major account representative. ?? The patient/major account representative has been provided a list of facilities within their preferred geographic area. ?? I have requested that the patient/major account representative provide at least three choices for referral. ?? The patient/major account representative have requested referrals to: ?? [facility]. [facility] ?? 2. [facility] ?? 3. More to be entered ?? Expected date of discharge: 07/14 Note routed to Inpatient Auditor who will communicate referrals to facilities and [...] hours. If BG remains greater than 240, fiowtp09 units (no more than three times) & [...] hours. If BG remains greater than 240, seniqq60 units (no more than three times) & call for new basal insulin orders. ??If less than 240 after two hours, give no insulin and resume prior schedule. Will continue to follow Katerin Azul APRN [facility] Endocrinology Diabetes Management Pager [phone] 20 minutes of this 35 minute visit was spent with the patient in counseling on diabetes and treatment plan, reviewing all glucose and insulin data as well as relevant laboratory results with the patient, and coordination of care on the inpatient unit including nursing and primary team. Makayla Stevenson APRN - 07/12/2017 9:52 AM EST Cardiac Surgery Progress Note: ID: [id number] 72 year old male POD#5 s/p CABGx3 [...] AM EST Cardiac Surgery Progress Note: ID: [id number] 72 year old male POD#4 s/p CABGx3 [...] AM EST Cardiac Surgery Progress Note: ID: [id number] 72 year old male POD#3 s/p CABGx3 [...] Gas) No results found for: PHART, PO2ART, PUH8RTM Assessment/Plan: 72 year old male POD#3 s/p [...] Mami Thao - 07/09/2017 6:29 PM EST Bracelet Maker Novelty Encounter Note Patient Name: Gregory Hoang : [id number] MR#: [id number] Admit Date: 07/05/2017 4:20 PM Hospital Day 4 days Narrative: Patient was sitting in chair, hugging heart pillow, opened his eyes, nodding to come into room Assessment: Patient was sleepy. Intervention and Outcome: Introduced spray painting machine operator services and patient reached his hand out in appreciation. Follow-up: Bracelet Maker Novelty remains available for support. Time in Direct [...] 07/09/2017 10:45 AM EST Report given to nurse staff industrial to cover care Maddison Cee PA - 07/09/2017 9:00 AM EST Cardiac Surgery Progress Note: ID: [id number] 72 year old male POD#2 s/p CABGx3 [...] completed shifts: In: 7977.4 [I.V.:7477.4; Other:500] Out: 9225 [Urine:3000; Other:615] I- 4 L O- 2.7 [...] on rounds. Signed: STEPHANIE Iqbal [facility] Section of Cardiac Surgery Date: [...] when IABP d/c'ed. Gretchen Carolina, PT Pager [phone] Maddison Cee PA - 07/08/2017 11:27 AM EST Cardiac Surgery Progress Note: ID: [id number] 72 year old male POD#1 s/p CABGx3 [...] on rounds. Signed: STEPHANIE Iqbal [facility] Section of Cardiac Surgery Date: [...] in place in R femoral. No hematoma. PETROLEUM GEOLOGIST- Intact Psych- Anxious Skin- Dry, no peripheral [...] intact. IABP in place in R femoral. PETROLEUM GEOLOGIST- Intact Psych- Anxious Skin- Dry, no peripheral [...] pending CABG - hold metformin - f/u [facility] ?? #Home Meds - continue [...] note for details. DAPHNE SHAHID MD Pager [phone] Jet Mckenna MD - 07/05/2017 6:48 PM EST Preliminary Cardiac Catheterization Procedure Note: Procedure(s) performed: Left heart cath, IABP insertion Access: Right RETAIL DEPARTMENT MANAGER-->8fr IABP A time-out was conducted prior [...] effect. Heparin gtt maintained. Pt transferred to optical laboratory manager. documented in this encounter H&P Notes Daphne Shahid MD - 07/05/2017 6:08 PM EST CARDIOLOGY HISTORY & PHYSICAL EXAM Date of Admission: 07/05/2017 ( Hospital Day 0 days ) Responsible Attending: Daphne Shahid MD PCP: Lovely Vicente MD PCP#: [phone] Patient Active Problem List Diagnosis Code ??? [...] No significant valvular disease. Taken to the optical laboratory manager urgently for ongoing STEMI. [facility] Labs: INR 1.0 WBC 5.88 Hgb 12.9 [...] monitor I/O - s/p lasix in the optical laboratory manager, redose to aim net neg [...] Medicine, PGY-2 Cardiology S1, Team Pager # [phone] CARDIOLOGY ATTENDING NOTE Patient: Gregory Hoang Date [...] amenable for PCI. DAPHNE SHAHID MD Pager [phone] documented in this encounter Miscellaneous Notes Consult Note - Daphne Shahid MD - 07/14/2017 11:46 AM EST Heart Failure Service Inpatient Consult Note Gregory Hoang Date of : 1945 Age: 72 y.o. Today's date: 07/14/17 PCP: Lovely Vicente MD TEXTILE DESIGNER: None Place of Service: C451-A Reason for [...] SETUP performed by Manny Mcknight MD at [facility] OR ??? PRO CABG, ARTERIAL, SINGLE N/A 07/07/2017 @CABG, USING ARTERIAL GRAFT;SINGLE ARTERIAL GRAFT (WRVU 33.75) performed by Yuan Webber MD at [facility] OR ??? PRO CABG, ARTERY-VEIN, TWO N/A 07/07/2017 @CABG, TWO VENOUS GRAFTS & ARTERIAL GRAFT (WRVU 7.93) performed by Yuan Webber MD at [facility] OR ??? PRO COLONOSCOPY, REMV LESN, SNARE 01/16/2014 COLONOSCOPY, POLYPECTOMY, REMOVAL LESION BY SNARE performed by Nohemi Jaimes MD at [facility] ENDOSCOPY ??? PRO ENDOSCOPY W/VIDEO-ASST VEIN HARVEST, CABG Right 07/07/2017 ENDOSCOPIC HARVEST VEIN(S) FOR CABG (WRVU 0.31) performed by Yuan Webber MD at [facility] OR ??? PRO THYROIDECTOMY 03/28/2013 THYROIDECTOMY, TOTAL OR COMPLETE performed by Manny Mcknight MD at [facility] MAIN OR Outpt Meds: Current [...] following studies: EKG 07/14/17: NSR 75 bpm, WELL HEAD PUMPER anterior infarct, LAD CXR 07/11/17: FINDINGS: Sternotomy wires. The patient has been extubated, left chest tube removed, and [place]-Suzi catheter removed since the 07/07/2017 study. Atelectasis [...] was discussed with Zehra. Jaden Kelley MD Tie Tape Machine Operator Pager [phone] CARDIOLOGY ATTENDING NOTE Patient: Gregory Hoang Date [...] heart failure clinic. DAPHNE SHAHID MD Pager [phone] Plan of Care - Alden Chavarria, OPERATIONS RESEARCH MANAGER - 07/14/2017 11:35 AM EST Problem: [...] Disposition: home with assist Alden Jorge Genikevin, OPERATIONS RESEARCH MANAGER Pager: [phone] Inpatient Physical Therapy Problem: Acute Rehab Services [...] sit/sit to supine -- Bed Mobility Goal, [place] Level supervision required -- Bed Mobility Goal, [...] - 3 days -- Gait Training Goal, [place] Level supervision required -- Gait Training Goal, [...] days -- Transfer Training Goal, Activity Type hus-ij-kkhqo/xzgis-ir-onc;wwy-yw-fwbiz/jlgoq-hw-ktk;toilet -- Transfer Train Goal, [place] Level supervision required -- Transfer Training Goal, [...] keeping present for 2 days per family. Food Inspector noted of frustrations, house keeping sent to room. Patient offered showered twice, refused. at bedside, frustrated that shower not complete, informed that patient had refused several times. requesting to see CLIENT SUPPORT CONSULTANT, paged sent to Martha, will come to bedside (middle of consult). not willing to wait, Martha notified that family had gone home. Encouraged to come for morning rounds a t 8am. Diabetes team at bedside - insulin adjustments made. Call cabello in reach. Continue to monitor. PLAN MOVING FORWARD: Ambulate, dressing changes BID, Please change drsg at 4am per Martha CLIENT SUPPORT CONSULTANT request. INDIVIDUALIZED FALL PREVENTION INTERVENTIONS: Patient-specific fall [...] levels on the lower side, 60ml of [place] juice given after a FS of 80. [...] Diabetes) hyperglycemia Plan of Care - Clarissa Seagl, PT - 07/12/2017 12:32 PM EST Problem: [...] Anticipated Discharge Disposition: home with assist Pager: [phone] CLARISSA SEGAL, PT 07/12/2017 Physical Therapy Rehabilitation [...] to sit/sit to supine Bed Mobility Goal, [place] Level supervision required Bed Mobility Goal, Additional Goal adheres to psternal precautions for transfer Goal: Gait Training Goal Stand Alone Therapy Goal Outcome: Ongoing (Interventions Implemented as Appropriate) 07/12/17 1225 Gait Training Goal Gait Training Goal, Date Established 07/12/17 Gait Training Goal, Time to Achieve 2 - 3 days Gait Training Goal, [place] Level supervision required Gait Training Goal, Assist [...] 3 days Transfer Training Goal, Activity Type ehr-nz-hbrnw/xfprw-ys-mmh;rcz-qr-whsrq/xxksz-we-pnh;toilet Transfer Train Goal, [place] Level supervision required Transfer Training Goal, Additional Goal adheres to sternal precautions during transfer Consult Note - Octavia Vaughn RN - 07/12/2017 10:50 AM EST [facility] CARDIAC REHABILITATION Gregory Hoang was seen today regarding participation in the outpatient Phase 2 Cardiac Rehabilitation at [facility]. The patient agrees to a referral to [...] IV site, amio to other piv and ADJUSTER ARBITRATOR at bedside to help assess, IV removed. [...] staff, he stood and marched in place. [place] weak, wanting to sit back down. Remained [...] Health/Prescription Coverage: Primary Insurance: MEDICARE Secondary Insurance: [id number] [place] Prescription Coverage: yes Preferred Pharmacy: [facility] [place] Other: none Primary Care Provider: Lovely Vicente MD [phone] Patient/Caregiver Goals of Treatment:live and get my breath back Potential Needs for Transition of Care: Rehab/SNF: [facility] Home Health: NA DME: TBD Dialysis: na Community Resources: available Transportation: yes Other: none Anticipated Barriers to Discharge/Special Considerations: none Plan: Likely SNF Rehab before home A member of the Care Management team will continue to monitor progress, follow for continuity of care and assist with transition of care planning. ERLIN Weiss Pager: [phone] Consult Note - Katerin Azul RN - [...] management and to provide a review of posting clerk diabetes care. Diabetes History: Gregory Hoang has [...] potential to d/c gtt and start CF. prison diabetes care: Medications - Outpatient treatment regimen recommendations pending based on the hospital course. Monitoring - continue BG tid ac & hs Diet - low fat/low carb diet Exercise - weight-bearing exercise 30 min/day, as tolerated Thank you for allowing us to provide care for your patient W/E coverage, Dr. Jeane Tatum, pager [phone] Katerin Azul APRN Endocrinology Diabetes Management Pager [phone] Plan of Care - Walt Stephanie Wyatt [...] Operative Note Patient Name: Gregory Hoang : [id number] MR#: [id number] Case Date: 07/07/2017 Surgeon: Surgeon(s) and Role: * Yuan Webber MD - Primary * Michael Drake PA - Physician Sales And Service Specialist * Linda Flores PA - Physician Sales And Service Specialist Preoperative diagnosis: 3VD Postoperative diagnosis: CAD, [...] Operative Note Patient Name: Gregory Hoang : [id number] MR#: [id number] Case Date: 07/07/2017 Surgeon: Surgeon(s) and Role: * Yuan Webber MD - Primary * Michael Drake PA - Physician Sales And Service Specialist * Linda Flores PA - Physician Sales And Service Specialist Preoperative diagnosis: 3VD Postoperative diagnosis: CAD, [...] code status: Full Code Katty Hahn, MS3 [facility] Cardiology S1 (Pager [phone]) Plan of Care - Emelia Ibarra RN [...] at [facility] ENDOSCOPY ??? PRO THYROIDECTOMY 03/28/2013 THYROIDECTOMY, TOTAL OR COMPLETE performed by Manny Mcknight MD at [facility] MAIN OR Social History: Social [...] with other involved physicians Yuan Webber MD [phone] Med Student Progress Note - Katty Hahn [...] or BiPAP - s/p lasix in the optical laboratory manager, was net -1.5L - s/p [...] [facility] Cardiology S1 (Pager [phone]) Plan of Care - Stephanie Godoy RN - 07/06/2017 5:00 AM EST Problem: Patient Care Overview Goal: Plan of Care Review 07/06/17 3326 Coping/Psychosocial Plan Of Care Reviewed With patient;family [...] in urinal without difficulty. 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 at this [...] Vitaliy Nobles MD [facility] [address] [place], [place] [address] (Wo rk) 05/28/2022 Appointment Cardiology Zulma Dolan MD [facility] [address] [place], [place] [address] (Wo rk) 05/28/2022 Laboratory Appointment Lab 05/28/2022 Office Visit Cardiology Zulma Dolan MD [facility] [place] [address] Liz Poole PA [facility] [place] [address] 06/10/2022 Office Visit Dermatology Laura Scherer MD [facility] DR TEJA [place], [place] [address] (Wo rk) Scheduled Orders Name [...] procedure are i n the results section. PICKET LABOR UNION SCAN 07/15/2017 12:00 Res ults for this [...] f or this ([facility] AM EST procedure are i n the [...] Yes 07/07/2017 1:35 CAD VEIN(S[facility] PM EST 0.31) @CABG, TWO VENOUS GRAFTS Yes 07/07/2017 1:35 CAD & ARTERIAL GRAFT ([facility] PM EST 7.93) @CABG, USING ARTERIAL Yes 07/07/2017 1:35 CAD GRAFT;SINGLE ARTERIAL PM EST GRAFT ([facility] 33.75) PREPARE COAG FACTORS STAT 07/07/2017 [...] f or this ([facility]/CG) PM EST procedure are i n the [...] Routine 07/06/2017 2:20 Results f or this ([facility]P) AM EST procedure are i n the [...] f or this ([facility]) PM EST procedure are i n the [...] [place] at 08/19/2017 10:30 AM Martha Teague PETROLEUM GEOLOGIST IMG DX ORDERABLES SCAN DOC: PICKET LABOR UNION (07/15/2017 12:00 AM EST) Narrative 07/15/2017 12:00 [...] POC Glucose 186 65 - 199 [facility] mg/dL [facility] Comment: Supplemental ranges: <140 mg/dL before meals <180 mg/dL all other times of the day Specimen Anatomical Collection Method Collection Time Receive d Time (Source) Location / / Volume Laterality Blood specimen 07/14/2017 11:56 7 (specimen) AM EST 11:56 AM EST Yuan Webber MD POINT OF CARE TEST ORDERABLE S Performing Organization Address City/State/[place] [address] POCT Glucose (07/14/2017 7:52 AM EST) athologist Signature POC Glucose 126 65 - 199 [facility] mg/dL [facility] Comment: Supplemental ranges: [...] [facility]/[place] [address] (ABNORMAL) Prothrombin Time (07/14/2017 [...] Address City/State/ZIP Code Phon e Number [address] Potassium (07/14/2017 4:46 AM EST) athologist Signature Potassium 4.3 3.5 - 5.0 [facility] mmol/L [facility] Comment: Please note: [...] Wilson APRN CHEMISTRY ORDERABLES Performing Organization Address City/[facility] Code Phon e Number [address] POCT Glucose (07/14/2017 4:34 AM EST) athologist Signature POC Glucose 115 65 - 199 [facility] mg/dL [facility] Comment: Supplemental ranges: [...] [facility]/[place] [address] POCT Glucose (07/13/2017 11:33 PM EST) athologist Signature POC Glucose 132 65 - 199 [place] mg/dL [facility] Comment: Supplemental ranges: [...] [facility]/[place] [address] POCT Glucose (07/13/2017 9:25 PM EST) athologist Signature POC Glucose 121 65 - 199 [facility] mg/dL [facility] Comment: Supplemental ranges: <140 mg/dL before meals <180 mg/dL all other times of the day Specimen Anatomical Collection Method Collection Time Receive d Time (Source) Location / / Volume Laterality Blood specimen 07/13/2017 9:25 PM 017 9:25 (specimen) EST PM EST Yuan Webber MD POINT OF CARE TEST ORDERABLE S Performing Organization Address City/State/ZIP Code Phon e Number [address] POCT Glucose (07/13/2017 4:55 PM EST) athologist Signature POC Glucose 79 65 - 199 [place] mg/dL [facility] Comment: Supplemental ranges: <140 mg/dL before meals <180 mg/dL all other times of the day Specimen Anatomical Collection Method Collection Time Receive d Time (Source) Location / / Volume Laterality Blood specimen 07/13/2017 4:55 PM 017 4:55 (specimen) EST PM EST Yuan Webber MD POINT OF CARE TEST ORDERABLE S Performing Organization Address City/State/ZIP Code Phon e Number [address] POCT Glucose (07/13/2017 11:16 AM EST) athologist Signature POC Glucose 163 65 - 199 [place] mg/dL [facility] Comment: Supplemental ranges: <140 mg/dL before meals <180 mg/dL all other times of the day Specimen Anatomical Collection Method Collection Time Receive d Time (Source) Location / / Volume Laterality Blood specimen 07/13/2017 11:16 7 (specimen) AM EST 11:16 AM EST Yuan Webber MD POINT OF CARE TEST ORDERABLE S Performing Organization Address City/State/[place] [address] POCT Glucose (07/13/2017 8:07 AM EST) athologist Signature POC Glucose 96 65 - 199 [facility] mg/dL [facility] Comment: Supplemental ranges: <140 mg/dL before meals <180 mg/dL all other times of the day Specimen Anatomical Collection Method Collection Time Receive d Time (Source) Location / / Volume Laterality Blood specimen 07/13/2017 8:07 AM 017 8:07 (specimen) EST AM EST Yuan Webber MD POINT OF CARE TEST ORDERABLE S Performing Organization Address City/State/[place] [address] (ABNORMAL) Prothrombin Time (07/13/2017 [...] Organization Address City/State/[place] [address] (ABNORMAL) Basic Metabolic Panel (non-fasting) (07/13/2017 4:26 AM EST) athologist Signature Glucose Lvl 95 65 - 199 [facility] mg/dL [facility] Comment: Diabetes: >=200 [...] [facility] Calcium 7.7 (L) 8.5 - 10.5 mg/dL [facility] Estimated GFR 60 >=60 [facility] Comment: The reported eGFR should be multiplied b y 1.2 for patients. The MDRD is not an appropriate measure o f renal function for patients with body mass extremes or in patients with acute kidney failure. http://[employer]/DHnkdep http://[employer]/DHMCnkf Specimen Anatomical Collection Method Collection Time Receive d Time (Source) Location / / Volume Laterality Blood specimen 07/13/2017 4:26 AM 017 4:46 (specimen) EST AM EST Resulting Agency Comment Spec In Lab Makayla Wilson APRN CHEMISTRY ORDERABLES Performing Organization Address City/State/ZIP [place] [address] POCT Glucose (07/13/2017 3:52 AM EST) P athologist Signature POC Glucose 93 65 - 199 [facility] mg/dL [facility] Comment: Supplemental ranges: <140 mg/dL before meals <180 mg/dL all other times of the day Specimen Anatomical Collection Method Collection Time Receive d Time (Source) Location / / Volume Laterality Blood specimen 07/13/2017 3:52 AM 017 3:52 (specimen) EST AM EST Yuan Webber MD POINT OF CARE TEST ORDERABLE S Performing Organization Address City/State/ZIP Code Phon e Number [address] POCT Glucose (07/13/2017 12:21 AM EST) athologist Signature POC Glucose 80 65 - 199 [place] mg/dL [facility] Comment: Supplemental ranges: [...] [facility]/ZIP Code Phon e Number [address] POCT Glucose (07/12/2017 8:22 PM EST) athologist Signature POC Glucose 119 65 - 199 [facility] mg/dL [facility] Comment: Supplemental ranges: <140 mg/dL before meals <180 mg/dL all other times of the day Specimen Anatomical Collection Method Collection Time Receive d Time (Source) Location / / Volume Laterality Blood specimen 07/12/2017 8:22 PM 017 8:22 (specimen) EST PM EST Yuan Webber MD POINT OF CARE TEST ORDERABLE S Performing Organization Address City/State/[place] [address] POCT Glucose (07/12/2017 4:02 PM EST) athologist Signature POC Glucose 114 65 - 199 [facility] mg/dL [facility] Comment: Supplemental ranges: <140 mg/dL before meals <180 mg/dL all other times of the day Specimen Anatomical Collection Method Collection Time Receive d Time (Source) Location / / Volume Laterality Blood specimen 07/12/2017 4:02 PM 017 4:02 (specimen) EST PM EST Yuan Webber MD POINT OF CARE TEST ORDERABLE S Performing Organization Address City/State/ZIP Code Phon e Number [address] POCT Glucose (07/12/2017 11:28 AM EST) athologist Signature POC Glucose 164 65 - 199 [facility] mg/dL [facility] Comment: Supplemental ranges: <140 mg/dL before meals <180 mg/dL all other times of the day Specimen Anatomical Collection Method Collection Time Receive d Time (Source) Location / / Volume Laterality Blood specimen 07/12/2017 11:28 7 (specimen) AM EST 11:28 AM EST Yuan Webber MD POINT OF CARE TEST ORDERABLE S Performing Organization Address City/State/ZIP Code Phon e Number [address] POCT Glucose (07/12/2017 7:34 AM EST) athologist Signature POC Glucose 109 65 - 199 [facility] Comment: Supplemental ranges: <140 mg/dL before meals <180 mg/dL all other times of the day Specimen Anatomical Collection Method Collection Time Receive d Time (Source) Location / / Volume Laterality Blood specimen 07/12/2017 7:34 AM 017 7:34 (specimen) EST AM EST Yuan Webber MD POINT OF CARE TEST ORDERABLE S Performing Organization Address City/State/[place] [address] (ABNORMAL) Basic Metabolic Panel (non-fasting) (07/12/2017 4:11 AM EST) athologist Signature Glucose Lvl 92 65 - 199 [facility] mg/dL [facility] Comment: Diabetes: >=200 mg/dL plus symp toms BUN 31 (H) 10 - 20 mg/dL [facility] Creatinine 1.23 0.80 [...] CENTER LABORATORY Estimated GFR 58 (L) >=60 [facility] Comment: The reported eGFR should be multiplied b y 1.2 for patients. The MDRD is not an appropriate measure o f renal function for patients with body mass extremes or in patients with acute kidney failure. http://[employer]/DHnkdep http://[employer]/DHMCnkf Specimen Anatomical Collection Method Collection Time Receive d Time (Source) Location / / Volume Laterality Blood specimen 07/12/2017 4:11 AM 017 8:57 (specimen) EST AM EST Resulting Agency Comment Spec In Lab Makayla Wilson STACIE CHEMISTRY ORDERABLES Performing Organization Address City/State/ZIP [place] [address] (ABNORMAL) Prothrombin Time (07/12/2017 [...] Wilson APRN HEMATOLOGY ORDERABLES Performing Organization Address City/[facility]/[place] [address] Potassium (07/12/2017 4:11 AM EST) P athologist Signature Potassium 3.8 3.5 - 5.0 [facility] mmol/L [facility] Comment: Please note: [...] Wilson STACIE CHEMISTRY ORDERABLES Performing Organization Address City/[facility]/[place] [address] POCT Glucose (07/12/2017 4:10 AM EST) athologist Signature POC Glucose 90 65 - 199 [facility] mg/dL [facility] Comment: Supplemental ranges: [...] [facility]/[place] [address] POCT Glucose (07/11/2017 11:57 PM EST) athologist Signature POC Glucose 98 65 - 199 [facility] mg/dL [facility] Comment: Supplemental ranges: <140 mg/dL before meals <180 mg/dL all other times of the day Specimen Anatomical Collection Method Collection Time Receive d Time (Source) Location / / Volume Laterality Blood specimen 07/11/2017 11:57 7 (specimen) PM EST 11:57 PM EST Yuan Webber MD POINT OF CARE TEST ORDERABLE S Performing Organization Address City/State/[place] [address] POCT Glucose (07/11/2017 8:32 PM EST) athologist Signature POC Glucose 146 65 - 199 [facility] mg/dL [facility] Comment: Supplemental ranges: <140 mg/dL before meals <180 mg/dL all other times of the day Specimen Anatomical Collection Method Collection Time Receive d Time (Source) Location / / Volume Laterality Blood specimen 07/11/2017 8:32 PM 017 8:32 (specimen) EST PM EST Yuan Webber MD POINT OF CARE TEST ORDERABLE S Performing Organization Address City/State/[place] [address] XR Chest PA & [...] e xtubated, left chest tube removed, and [place]-Suzi catheter removed since the study. Atelectasis at [...] e xtubated, left chest tube removed, and [place]ame-Suzi catheter removed since the study. Atelectasis at [...] POC Glucose 223 (H) 65 - 199 [facility] mg/dL [facility] Comment: Supplemental ranges: <140 mg/dL before meals <180 mg/dL all other times of the day Specimen Anatomical Collection Method Collection Time Receive d Time (Source) Location / / Volume Laterality Blood specimen 07/11/2017 4:05 PM 017 4:05 (specimen) EST PM EST Yuan Webber MD POINT OF CARE TEST ORDERABLE S Performing Organization Address City/State/ZIP [place] [address] POCT Glucose (07/11/2017 11:55 AM EST) athologist Signature POC Glucose 176 65 - 199 [facility] mg/dL [facility] Comment: Supplemental ranges: <140 mg/dL before meals <180 mg/dL all other times of the day Specimen Anatomical Collection Method Collection Time Receive d Time (Source) Location / / Volume Laterality Blood specimen 07/11/2017 11:55 12/17/201 7 (specimen) AM EST 11:55 AM EST Yuan Webber MD POINT OF CARE TEST ORDERABLE S Performing Organization Address City/State/ZIP Code Phon e Number [address] POCT Glucose (07/11/2017 7:53 AM EST) athologist Signature POC Glucose 189 65 - 199 [facility] mg/dL [facility] Comment: Supplemental ranges: [...] [facility]/[place] [address] POCT Glucose (07/11/2017 4:22 AM EST) athologist Signature POC Glucose 151 65 - 199 [facility] mg/dL [facility] Comment: Supplemental ranges: [...] [facility]/[place] [address] Potassium (07/11/2017 2:20 AM EST) athologist Signature Potassium 4.5 3.5 - 5.0 [facility] mmol/L [facility] Comment: Please note: [...] Address City/State/ZIP Code Phon e Number [address] POCT Glucose (07/11/2017 12:17 AM EST) athologist Signature POC Glucose 162 65 - 199 [facility] mg/dL [facility] Comment: Supplemental ranges: <140 mg/dL before meals <180 mg/dL all other times of the day Specimen Anatomical Collection Method Collection Time Receive d Time (Source) Location / / Volume Laterality Blood specimen 07/11/2017 12:17 7 (specimen) AM EST 12:17 AM EST Yuan Webber MD POINT OF CARE TEST ORDERABLE S Performing Organization Address City/State/ZIP Code Phon e Number [address] POCT Glucose (07/10/2017 8:47 PM EST) athologist Signature POC Glucose 191 65 - 199 [place] [place] mg/dL [facility] Comment: Supplemental ranges: <140 mg/dL before meals <180 mg/dL all other times of the day Specimen Anatomical Collection Method Collection Time Receive d Time (Source) Location / / Volume Laterality Blood specimen 07/10/2017 8:47 PM 017 8:47 (specimen) EST PM EST Yuan Webber MD POINT OF CARE TEST ORDERABLE S Performing Organization Address City/State/ZIP Code Phon e Number [address] POCT Glucose (07/10/2017 4:06 PM EST) athologist Signature POC Glucose 131 65 - 199 [facility] mg/dL [facility] Comment: Supplemental ranges: [...] [facility]/[place] [address] POCT Glucose (07/10/2017 3:08 PM EST) athologist Signature POC Glucose 151 65 - 199 [facility] mg/dL [facility] Comment: Supplemental ranges: [...] [facility]/[place] [address] POCT Glucose (07/10/2017 2:25 PM EST) athologist Signature POC Glucose 146 65 - 199 [facility] mg/dL [facility] Comment: Supplemental ranges: <140 mg/dL before meals <180 mg/dL all other times of the day Specimen Anatomical Collection Method Collection Time Receive d Time (Source) Location / / Volume Laterality Blood specimen 07/10/2017 2:25 PM 017 2:25 (specimen) EST PM EST Yuan Webber MD POINT OF CARE TEST ORDERABLE S Performing Organization Address City/State/[place] [address] POCT Glucose (07/10/2017 1:23 PM EST) athologist Signature POC Glucose 166 65 - 199 [facility] mg/dL [facility] Comment: Supplemental ranges: <140 mg/dL before meals <180 mg/dL all other times of the day Specimen Anatomical Collection Method Collection Time Receive d Time (Source) Location / / Volume Laterality Blood specimen 07/10/2017 1:23 PM 017 1:23 (specimen) EST PM EST Yuan Webber MD POINT OF CARE TEST ORDERABLE S Performing Organization Address City/State/ZIP Code Phon e Number [address] POCT Glucose (07/10/2017 11:52 AM EST) P athologist Signature POC Glucose 157 65 - 199 [facility] mg/dL [facility] Comment: Supplemental ranges: [...] [facility]/ZIP Code Phon e Number [address] POCT Glucose (07/10/2017 11:01 AM EST) athologist Signature POC Glucose 158 65 - 199 [facility] mg/dL [facility] Comment: Supplemental ranges: <140 mg/dL before meals <180 mg/dL all other times of the day Specimen Anatomical Collection Method Collection Time Receive d Time (Source) Location / / Volume Laterality Blood specimen 07/10/2017 11:01 7 (specimen) AM EST 11:01 AM EST Yuan Webber MD POINT OF CARE TEST ORDERABLE S Performing Organization Address City/State/[place] [address] POCT Glucose (07/10/2017 9:54 AM EST) athologist Signature POC Glucose 160 65 - 199 [facility] mg/dL [facility] Comment: Supplemental ranges: <140 mg/dL before meals <180 mg/dL all other times of the day Specimen Anatomical Collection Method Collection Time Receive d Time (Source) Location / / Volume Laterality Blood specimen 07/10/2017 9:54 AM 017 9:54 (specimen) EST AM EST Yuan Webber MD POINT OF CARE TEST ORDERABLE S Performing Organization Address City/State/ZIP Code Phon e Number [address] POCT Glucose (07/10/2017 8:58 AM EST) P athologist Signature POC Glucose 183 65 - 199 [facility] mg/dL [facility] Comment: Supplemental ranges: <140 mg/dL before meals <180 mg/dL all other times of the day Specimen Anatomical Collection Method Collection Time Receive d Time (Source) Location / / Volume Laterality Blood specimen 07/10/2017 8:58 AM 017 8:58 (specimen) EST AM EST Yuan Webber MD POINT OF CARE TEST ORDERABLE S Performing Organization Address City/State/ZIP Code Phon e Number [address] POCT Glucose (07/10/2017 8:01 AM EST) athologist Signature POC Glucose 173 65 - 199 [facility] mg/dL [facility] Comment: Supplemental ranges: <140 mg/dL before meals <180 mg/dL all other times of the day Specimen Anatomical Collection Method Collection Time Receive d Time (Source) Location / / Volume Laterality Blood specimen 07/10/2017 8:01 AM 017 8:01 (specimen) EST AM EST Yuan Webber MD POINT OF CARE TEST ORDERABLE S Performing Organization Address City/State/ZIP Code Phon e Number [address] POCT Glucose (07/10/2017 7:05 AM EST) athologist Signature POC Glucose 166 65 - 199 [facility] mg/dL [facility] Comment: Supplemental ranges: <140 mg/dL before meals <180 mg/dL all other times of the day Specimen Anatomical Collection Method Collection Time Receive d Time (Source) Location / / Volume Laterality Blood specimen 07/10/2017 7:05 AM 017 7:05 (specimen) EST AM EST Yuan Webber MD POINT OF CARE TEST ORDERABLE S Performing Organization Address City/State/ZIP Code Phon e Number [address] POCT Glucose (07/10/2017 6:00 AM EST) P athologist Signature POC Glucose 162 65 - 199 [facility] Comment: Supplemental [...] Address City/State/ZIP Code Phon e Number [address] (ABNORMAL) Differential, Automated (07/10/2017 4:28 AM EST) Patholo gist Method Time Signature Neutrophils % 87.9 % [facility] Neutr Abs (ANC) 10.70 (H) 1.70 - [facility] 6.10 [facility] x10(3)/[facility] L LABORATORY Lymphocytes % 3.9 % [facility] Lymphocytes Abs 0.5 (L) 0.9 - 3.2 [facility] x10(3)/[facility] LABORATORY Monocytes % 7.0 % [facility] Monocyte Abs 0.8 0.3 - 0.9 [facility] x10(3)/[facility] LABORATORY Eosinophils % 0.3 % [facility] Eosinophils Abs 0.0 0.0 - 0.4 [facility] x10(3)/[facility] LABORATORY Basophils % 0.2 % [facility] Basophils Abs 0.0 0.0 - 0.1 [facility] x10(3)/[facility] LABORATORY Immature Gran [...] Gran Abs 0.08 (H) 0.00 - 0.04 x10(3)/[facility] LABORATORY Specimen Anatomical Collection Method Collection Time Receive d Time (Source) Location / / Volume Laterality Blood specimen 07/10/2017 4:28 AM 017 4:36 (specimen) EST AM EST Resulting Agency Comment Spec In Lab Yuan Webber MD HEMATOLOGY ORDERABLES Performing Organization Address City/State/ZIP [place] [address] (ABNORMAL) Hemogram (07/10/2017 4:28 AM EST) Analysis Performed At Patho logist Time Signature WBC 12.2 (H) 4.0 - 9.5 [facility] x10(3)/[facility] LABORATORY RBC 3.31 (L) 4.58 - [facility] 5.54 [facility] x10(6)/[facility] LABORATORY Hemoglobin 9.8 (L) 13.7 - [facility] 16.5 gm/dL [facility] Hematocrit 30.0 (L) 40.5 - [facility] 48.5 % [facility] [facility]ORY MCV 90.6 82.9 - [facility] LAB[facility]ATORY MCH 29.6 27.5 - [facility] 32.1 pg [facility] MCHC 32.7 32.0 - [facility] 35.7 gm/dL [facility] Platelets 135 (L) 145 - 357 [facility] x10(3)/[facility] LABORATORY RDWSD 50.8 (H) 36.0 - [facility]0 [facility] LABORATORY RDWCV 15.4 (H) 11.4 - [facility] 13.8 % [facility] MPV 10.0 7.6 - 12.9 [facility] [place] [facility] LABORATORY nRBC % Auto 0.0 % [facility] LABORATORY nRBC Abs Auto 0.000 0.000 - [facility] 0.000 [facility] x10(3)/[facility] LABORATORY Specimen Anatomical Collection Method Collection Time Receive d Time (Source) Location / / Volume Laterality Blood specimen 07/10/2017 4:28 AM 017 4:36 (specimen) EST AM EST Resulting Agency Comment Spec In Lab Yuan Webber MD HEMATOLOGY ORDERABLES Performing Organization Address City/State/ZIP [place] [address] (ABNORMAL) Basic Metabolic Panel (non-fasting) (07/10/2017 4:28 AM EST) athologist Signature Glucose Lvl 178 65 - 199 [facility] mg/dL [facility] Comment: Diabetes: >=200 [...] [facility] LABORATORY Calcium 7.4 (L) 8.5 - 10.5 mg/dL [facility] LABORATORY Estimated GFR 60 >=60 [facility] LABORATORY Comment: The reported eGFR should be multiplied b y 1.2 for patients. The MDRD is not an appropriate measure o f renal function for patients with body mass extremes or in patients with acute kidney failure. http://[employer]/DHnkdep http://[employer]/DHMCnkf Specimen Anatomical Collection Method Collection Time Receive d Time (Source) Location / / Volume Laterality Blood specimen 07/10/2017 4:28 AM 017 4:36 (specimen) EST AM EST Resulting Agency Comment Spec In Lab Yuan Webber MD CHEMISTRY ORDERABLES Performing Organization Address City/State/[place] [address] POCT Glucose (07/10/2017 4:26 AM EST) athologist Signature POC Glucose 176 65 - 199 [facility] R[facility]AN mg/dL [facility] Comment: Supplemental ranges: <140 mg/dL before meals <180 mg/dL all other times of the day Specimen Anatomical Collection Method Collection Time Receive d Time (Source) Location / / Volume Laterality Blood specimen 07/10/2017 4:26 AM 017 4:26 (specimen) EST AM EST Yuan Webber MD POINT OF CARE TEST ORDERABLE S Performing Organization Address City/State/[place] [address] (ABNORMAL) POCT Glucose (07/10/2017 3:06 AM EST) athologist Signature POC Glucose 204 (H) 65 - 199 [facility] RYAN mg/dL [facility] Comment: Supplemental ranges: <140 mg/dL before meals <180 mg/dL all other times of the day Specimen Anatomical Collection Method Collection Time Receive d Time (Source) Location / / Volume Laterality Blood specimen 07/10/2017 3:06 AM 017 3:06 (specimen) EST AM EST Yuan Webber MD POINT OF CARE TEST ORDERABLE S Performing Organization Address City/State/[place] [address] (ABNORMAL) POCT Glucose (07/10/2017 2:10 AM EST) athologist Signature POC Glucose 203 (H) 65 - 199 [facility] mg/dL [facility] Comment: Supplemental ranges: <140 mg/dL before meals <180 mg/dL all other times of the day Specimen Anatomical Collection Method Collection Time Receive d Time (Source) Location / / Volume Laterality Blood specimen 07/10/2017 2:10 AM 017 2:10 (specimen) EST AM EST Yuan Webber MD POINT OF CARE TEST ORDERABLE S Performing Organization Address City/State/ZIP Code Phon e Number [address] POCT Glucose (07/10/2017 1:09 AM EST) P athologist Signature POC Glucose 196 65 - 199 [place] mg/dL [facility] Comment: Supplemental ranges: <140 mg/dL before meals <180 mg/dL all other times of the day Specimen Anatomical Collection Method Collection Time Receive d Time (Source) Location / / Volume Laterality Blood specimen 07/10/2017 1:09 AM 017 1:09 (specimen) EST AM EST Yuan Webber MD POINT OF CARE TEST ORDERABLE S Performing Organization Address City/State/[place] [address] POCT Glucose (07/10/2017 12:10 AM EST) athologist Signature POC Glucose 173 65 - 199 [facility] mg/dL [facility] Comment: Supplemental ranges: <140 mg/dL before meals <180 mg/dL all other times of the day Specimen Anatomical Collection Method Collection Time Receive d Time (Source) Location / / Volume Laterality Blood specimen 07/10/2017 12:10 7 (specimen) AM EST 12:10 AM EST Yuan Webber MD POINT OF CARE TEST ORDERABLE S Performing Organization Address City/State/ZIP Code Phon e Number [address] POCT Glucose (07/09/2017 11:01 PM EST) P athologist Signature POC Glucose 140 65 - 199 [facility] mg/dL [facility] Comment: Supplemental ranges: <140 mg/dL before meals <180 mg/dL all other times of the day Specimen Anatomical Collection Method Collection Time Receive d Time (Source) Location / / Volume Laterality Blood specimen 07/09/2017 11:01 7 (specimen) PM EST 11:01 PM EST Yuan Webber MD POINT OF CARE TEST ORDERABLE S Performing Organization Address City/State/ZIP Code Phon e Number [address] POCT Glucose (07/09/2017 10:05 PM EST) athologist Signature POC Glucose 144 65 - 199 [place] mg/dL [facility] Comment: Supplemental ranges: [...] [facility]/ZIP Code Phon e Number [address] POCT Glucose (07/09/2017 9:31 PM EST) athologist Signature POC Glucose 121 65 - 199 [place] mg/dL [facility] Comment: Supplemental ranges: <140 mg/dL before meals <180 mg/dL all other times of the day Specimen Anatomical Collection Method Collection Time Receive d Time (Source) Location / / Volume Laterality Blood specimen 07/09/2017 9:31 PM 017 9:31 (specimen) EST PM EST Yuan Webber MD POINT OF CARE TEST ORDERABLE S Performing Organization Address City/State/[place] [address] POCT Glucose (07/09/2017 9:03 PM EST) athologist Signature POC Glucose 98 65 - 199 [facility] mg/dL [facility] Comment: Supplemental ranges: <140 mg/dL before meals <180 mg/dL all other times of the day Specimen Anatomical Collection Method Collection Time Receive d Time (Source) Location / / Volume Laterality Blood specimen 07/09/2017 9:03 PM 017 9:03 (specimen) EST PM EST Yuan Webber MD POINT OF CARE TEST ORDERABLE S Performing Organization Address City/State/ZIP Code Phon e Number [address] POCT Glucose (07/09/2017 8:09 PM EST) athologist Signature POC Glucose 117 65 - 199 [facility] mg/dL [facility] Comment: Supplemental ranges: [...] [facility]/ZIP Code Phon e Number [address] POCT Glucose (07/09/2017 5:40 PM EST) athologist Signature POC Glucose 155 65 - 199 [facility] mg/dL [facility] Comment: Supplemental ranges: [...] [facility]/ZIP Code Phon e Number [address] POCT Glucose (07/09/2017 4:24 PM EST) athologist Signature POC Glucose 164 65 - 199 [facility] mg/dL [facility] Comment: Supplemental ranges: <140 mg/dL before meals <180 mg/dL all other times of the day Specimen Anatomical Collection Method Collection Time Receive d Time (Source) Location / / Volume Laterality Blood specimen 07/09/2017 4:24 PM 017 4:24 (specimen) EST PM EST Yuan Webber MD POINT OF CARE TEST ORDERABLE S Performing Organization Address City/State/[place] [address] POCT Glucose (07/09/2017 3:19 PM EST) athologist Signature POC Glucose 166 65 - 199 [facility] mg/dL [facility] Comment: Supplemental ranges: [...] [facility]/[place] [address] POCT Glucose (07/09/2017 2:26 PM EST) athologist Signature POC Glucose 179 65 - 199 [facility] mg/dL [facility] Comment: Supplemental ranges: [...] [facility] Center/ZIP Code [place] [address] (ABNORMAL) POCT Glucose (07/09/2017 1:29 PM EST) athologist Signature POC Glucose 210 (H) 65 - 199 [facility] mg/dL [facility] Comment: Supplemental ranges: <140 mg/dL before meals <180 mg/dL all other times of the day Specimen Anatomical Collection Method Collection Time Receive d Time (Source) Location / / Volume Laterality Blood specimen 07/09/2017 1:29 PM 017 1:29 (specimen) EST PM EST Yuan Webber MD POINT OF CARE TEST ORDERABLE S Performing Organization Address City/State/ZIP Code Phon e Number [address] POCT Glucose (07/09/2017 12:20 PM EST) P athologist Signature POC Glucose 172 65 - 199 [facility] Comment: Supplemental ranges: <140 mg/dL before meals <180 mg/dL all other times of the day Specimen Anatomical Collection Method Collection Time Receive d Time (Source) Location / / Volume Laterality Blood specimen 07/09/2017 12:20 7 (specimen) PM EST 12:20 PM EST Yuan Webber MD POINT OF CARE TEST ORDERABLE S Performing Organization Address City/State/ZIP Code Phon e Number [address] POCT Glucose (07/09/2017 11:24 AM EST) P athologist Signature POC Glucose 156 65 - 199 [facility] mg/dL [facility] Comment: Supplemental ranges: <140 mg/dL before meals <180 mg/dL all other times of the day Specimen Anatomical Collection Method Collection Time Receive d Time (Source) Location / / Volume Laterality Blood specimen 07/09/2017 11:24 7 (specimen) AM EST 11:24 AM EST Yuan Webber MD POINT OF CARE TEST ORDERABLE S Performing Organization Address City/State/ZIP Code Phon e Number [place] [id number] HOSPITAL LAB[address]ATORY Drive POCT Glucose (07/09/2017 11:11 AM EST) P athologist Signature POC Glucose 172 65 - 199 [facility] mg/dL [facility] Comment: Supplemental ranges: <140 mg/dL before meals <180 mg/dL all other times of the day Specimen Anatomical Collection Method Collection Time Receive d Time (Source) Location / / Volume Laterality Blood specimen 07/09/2017 11:11 7 (specimen) AM EST 11:11 AM EST Yuan Webber MD POINT OF CARE TEST ORDERABLE S Performing Organization Address City/State/ZIP [place] [address] POCT Glucose (07/09/2017 10:08 AM EST) P athologist Signature POC Glucose 176 65 - 199 [facility] mg/dL [facility] Comment: Supplemental ranges: <140 mg/dL before meals <180 mg/dL all other times of the day Specimen Anatomical Collection Method Collection Time Receive d Time (Source) Location / / Volume Laterality Blood specimen 07/09/2017 10:08 7 (specimen) AM EST 10:08 AM EST Yuan Webber MD POINT OF CARE TEST ORDERABLE S Performing Organization Address City/State/ZIP Code Phon e Number [address] POCT Glucose (07/09/2017 8:02 AM EST) athologist Signature POC Glucose 178 65 - 199 [facility] mg/dL [facility] Comment: Supplemental ranges: <140 mg/dL before meals <180 mg/dL all other times of the day Specimen Anatomical Collection Method Collection Time Receive d Time (Source) Location / / Volume Laterality Blood specimen 07/09/2017 8:02 AM 017 8:02 (specimen) EST AM EST Yuan Webber MD POINT OF CARE TEST ORDERABLE S Performing Organization Address City/State/ZIP Code Phon e Number [address] (ABNORMAL) BLOOD GAS 2 ARTERIAL (07/09/2017 5:37 AM EST) Analysis Performed At Patho logist Time Signature pH Art 7.36 7.35 - [facility] 7.45 [facility] pCO2 Art 38 35 - 45 [facility] mmHg [facility] pO2 Art 79 (L) 85 - 104 [facility] mmHg [facility] HCO3 Art 20.9 20.0 - [facility] 26.0 [facility] mmol/L [facility] LABORATORY BE Art -4.6 (L) -3.0 - 3.0 [facility] mmol/L [facility] Hgb Blood Gas 10.5 (L) 13.7 - [facility] 16.5 gm/dL [facility] O2HB Art 93.8 (L) 94.0 - [facility] 97.0 % [facility] COHB Art 0.3 % [facility] [...] Whole Bld 175 65 - 199 mg/dL [facility] [...] Organization Address City/State/ZIP [place] [address] POCT Glucose (07/09/2017 3:27 AM EST) P athologist Signature POC Glucose 192 65 - 199 [facility] mg/dL [facility] Comment: Supplemental ranges: <140 mg/dL before meals <180 mg/dL all other times of the day Specimen Anatomical Collection Method Collection Time Receive d Time (Source) Location / / Volume Laterality Blood specimen 07/09/2017 3:27 AM 017 3:27 (specimen) EST AM EST Yuan Webber MD POINT OF CARE TEST ORDERABLE S Performing Organization Address City/State/ZIP [place] [address] (ABNORMAL) Basic Metabolic Panel (non-fasting) (07/09/2017 2:30 AM EST) athologist Signature Glucose Lvl 179 65 - 199 [facility] mg/dL [facility] Comment: Diabetes: >=200 mg/dL plus symp toms BUN 17 10 - 20 mg/dL [facility] LABORATORY Creatinine 1.34 0.80 [...] [facility] LABORATORY Calcium 7.1 (L) 8.5 - 10.5 mg/dL [facility] LABORATORY Comment: result [id number]-[id number] Estimated GFR 53 (L) >=60 [facility] LABORATORY Comment: The reported eGFR should be multiplied b y 1.2 for patients. The MDRD is not an appropriate measure o f renal function for patients with body mass extremes or in patients with acute kidney failure. http://[employer]/DHnkdep http://[employer]/DHMCnkf Specimen Anatomical Collection Method Collection Time Receive d Time (Source) Location / / Volume Laterality Blood specimen Venous Draw / 07/09/2017 2:30 AM 2016 2:42 (specimen) Unknown EST AM EST Resulting Agency Comment Spec In Lab Yuan Webber MD CHEMISTRY ORDERABLES Performing Organization Address City/[facility]/[place] [address] (ABNORMAL) Potassium (07/09/2017 2:30 AM EST) P athologist Signature Potassium 5.1 (H) 3.5 - 5.0 [facility] mmol/L [facility] Comment: Please note: [...] Webber MD CHEMISTRY ORDERABLES Performing Organization Address City/[facility]/[place] [address] (ABNORMAL) Hemogram (07/09/2017 2:30 AM EST) Analysis Performed At Patho logist Time Signature WBC 12.5 (H) 4.0 - 9.5 [facility] x10(3)/[facility] LABORATORY RBC 3.38 (L) 4.58 - [facility] 5.54 [facility] x10(6)/[facility] LABORATORY Hemoglobin 10.1 (L) 13.7 - [facility] 16.5 gm/dL [facility] Hematocrit 30.3 (L) 40.5 - [facility] 48.5 % [facility] MCV 89.6 82.9 - [facility] 93.1 fL [facility] MCH 29.9 27.5 - [facility] 32.1 pg [facility] MCHC 33.3 32.0 - [facility] 35.7 gm/dL [facility] Platelets 127 (L) 145 - 357 [facility] x10(3)/[facility] LABORATORY RDWSD 49.3 (H) 36.0 - [facility] RYAN 45.0 [facility] LABORATORY RDWCV 15.2 (H) 11.4 - [facility] 13.8 % [facility] MPV 9.9 7.6 - 12.9 [facility] LABORATORY nRBC % Auto 0.0 % [facility] LABORATORY nRBC Abs Auto 0.000 0.000 - [place] 0.000 [facility] x10(3)/[facility] LABORATORY Specimen Anatomical Collection Method Collection Time Receive d Time (Source) Location / / Volume Laterality Blood specimen 07/09/2017 2:30 AM 017 2:41 (specimen) EST AM EST Resulting Agency Comment Spec In Lab Yuan Webber MD HEMATOLOGY ORDERABLES Performing Organization Address City/[facility]/ZIP Code Phon e Number [address] POCT Glucose (07/09/2017 2:10 AM EST) P athologist Signature POC Glucose 169 65 - 199 [facility]dL [facility] Comment: Supplemental [...] [facility]/ZIP Code Phon e Number [address] POCT Glucose (07/09/2017 1:01 AM EST) P athologist Signature POC Glucose 173 65 - 199 [facility] mg/dL [facility] Comment: Supplemental ranges: [...] [facility]/[place] [address] Blood culture (07/09/2017 12:40 AM EST) [facility] gist Method Time Signature Blood Culture No growth [facility] DAVIS at 5 days. [facility] Specimen Anatomical Collection Method Collection Time Receive d Time (Source) Location / / Volume Laterality Blood specimen STRUCTURE OF RIGHT 07/09/2017 12:40 3:58 (specimen) UPPER LIMB / AM EST AM EST Unknown Resulting Agency Comment Spec In Lab Yuan Webber MD MICROBIOLOGY - BLOOD ORDERAB LES Performing Organization Address City/[facility]/[place] [address] Blood culture (07/09/2017 12:30 AM EST) [facility] gist Method Time Signature Blood Culture No growth [facility] DAVIS at 5 days. [facility] Specimen Anatomical Collection Method Collection Time Receive d Time (Source) Location / / Volume Laterality Blood specimen STRUCTURE OF LEFT 07/09/2017 12:30 1211/2016 3:59 (specimen) UPPER LIMB / AM EST AM EST Unknown Resulting Agency Comment Spec In Lab Yuan Webber MD MICROBIOLOGY - BLOOD ORDERAB LES Performing Organization Address City/[facility]/[place] [address] (ABNORMAL) Urinalysis Microscopic Exam (07/09/2017 12:05 AM EST) Analysis Performed At Patho logist Time Signature RBC UA 32 (H) 0 - 3 /HPF [facility] WBC UA 5 (H) 0 - 3 /HPF [facility] Squam Epith UA <1 <=4 /HPF [facility] Hyaline Cast 17 (H) 0 - 2 /LPF [facility] LABORATORY Gran Cast UA 1 (H) <=0 /LPF [facility] Uric Ac Bianca Rare (A) None /HPF [facility] LABORATORY Specimen (Source) Anatomical Collection Method Collection Time Re ceived Time Location / / Volume Laterality Urine specimen 07/09/2017 12: 7 obtained via AM EST 12:39 AM EST indwelling urinary catheter (specimen) Resulting Agency Comment Spec In Lab Yuan Webber MD URINE ORDERABLES Performing Organization Address City/[facility]/ZIP [place] [address] (ABNORMAL) Urinalysis with reflex Culture (07/09/2017 12:05 AM EST) [facility] Method Time Signature Glucose UA Negative Negative [facility] mg/dL [facility] Protein UA 30 (A) Negative [facility] mg/dL [facility] Bilirubin UA Negative Negative [facility] mg/dL [facility] Comment: Clinical correlation required for [...] CENTER LABORATORY Ketones UA Negative Negative mg/dL [facility] Nitrite UA Negative Negative [facility] LABORATORY Leukocytes UA Negative Negative [facility] LABORATORY Appearance UA Hazy (A) Clear [facility] LABORATORY Spec [place] UA 1.025 1.002 - 1.030 [facility] LABORATORY Color UA Yellow Yellow [...] Webber MD URINE ORDERABLES Performing Organization Address City/[facility]/ZIP [place] [address] POCT Glucose (07/08/2017 11:01 PM EST) athologist Signature POC Glucose 191 65 - 199 [facility]dL [facility] Comment: Supplemental [...] Address City/State/ZIP Code Phon e Number [address] POCT Glucose (07/08/2017 10:04 PM EST) athologist Signature POC Glucose 198 65 - 199 [facility] mg/dL [facility] Comment: Supplemental ranges: <140 mg/dL before meals <180 mg/dL all other times of the day Specimen Anatomical Collection Method Collection Time Receive d Time (Source) Location / / Volume Laterality Blood specimen 07/08/2017 10:04 7 (specimen) PM EST 10:04 PM EST Yuan Webber MD POINT OF CARE TEST ORDERABLE S Performing Organization Address City/State/[place] [address] Prepare Albumin 5% in [...] Address City/State/ZIP Code Phon e Number [address] POCT Glucose (07/08/2017 8:28 PM EST) athologist Signature POC Glucose 195 65 - 199 [facility] mg/dL [facility] Comment: Supplemental ranges: <140 mg/dL before meals <180 mg/dL all other times of the day Specimen Anatomical Collection Method Collection Time Receive d Time (Source) Location / / Volume Laterality Blood specimen 07/08/2017 8:28 PM 017 8:28 (specimen) EST PM EST Yuan Webber MD POINT OF CARE TEST ORDERABLE S Performing Organization Address City/State/[place] [address] (ABNORMAL) POCT Glucose (07/08/2017 7:13 PM EST) athologist Signature POC Glucose 220 (H) 65 - 199 [facility] mg[facility]dL [facility] Comment: Supplemental ranges: <140 mg/dL before meals <180 mg/dL all other times of the day Specimen Anatomical Collection Method Collection Time Receive d Time (Source) Location / / Volume Laterality Blood specimen 07/08/2017 7:13 PM 017 7:13 (specimen) EST PM EST Yuan Webber MD POINT OF CARE TEST ORDERABLE S Performing Organization Address City/State/[place] [address] POCT Glucose (07/08/2017 5:04 PM EST) athologist Signature POC Glucose 147 65 - 199 [facility] mg/dL [facility] Comment: Supplemental ranges: <140 mg/dL before meals <180 mg/dL all other times of the day Specimen Anatomical Collection Method Collection Time Receive d Time (Source) Location / / Volume Laterality Blood specimen 07/08/2017 5:04 PM 017 5:04 (specimen) EST PM EST Yuan Webber MD POINT OF CARE TEST ORDERABLE S Performing Organization Address City/State/[place] [address] (ABNORMAL) BLOOD GAS 2 ARTERIAL (07/08/2017 4:13 PM EST) Analysis Performed At Patho logist Time Signature pH Art 7.38 7.35 - [facility] 7.45 [facility] pCO2 Art 36 35 - 45 [facility] LABORATORY pO2 Art 91 85 - 104 [facility] LABORATORY HCO3 Art 20.9 20.0 - [facility] 26.0 [facility] mmol/[facility] LABORATORY BE Art -4.2 (L) -3.0 - 3.0 [facility] mmol/L [facility] Hgb Blood Gas 11.7 (L) 13.7 - [facility] 16.5 gm/dL [facility] O2HB Art 95.1 94.0 - [facility] 97.0 % [facility] COHB Art 0.6 % [place] [...] Whole Bld 155 65 - 199 mg/dL [facility] [...] Address City/State/ZIP Code Phon e Number [address] POCT Glucose (07/08/2017 4:01 PM EST) athologist Signature POC Glucose 148 65 - 199 [facility] mg/dL [facility] Comment: Supplemental ranges: [...] [facility]/[place] [address] POCT Glucose (07/08/2017 3:21 PM EST) athologist Signature POC Glucose 118 65 - 199 BRABARA RYAN mg/dL [facility] Comment: Supplemental ranges: <140 mg/dL before meals <180 mg/dL all other times of the day Specimen Anatomical Collection Method Collection Time Receive d Time (Source) Location / / Volume Laterality Blood specimen 07/08/2017 3:21 PM 017 3:21 (specimen) EST PM EST Yuan Webber MD POINT OF CARE TEST ORDERABLE S Performing Organization Address City/State/[place] [address] POCT Glucose (07/08/2017 2:01 PM EST) athologist Signature POC Glucose 129 65 - 199 BARBARA ZHAORYAN mg/dL [facility] Comment: Supplemental ranges: <140 mg/dL before meals <180 mg/dL all other times of the day Specimen Anatomical Collection Method Collection Time Receive d Time (Source) Location / / Volume Laterality Blood specimen 07/08/2017 2:01 PM 017 2:01 (specimen) EST PM EST Yuan Webber MD POINT OF CARE TEST ORDERABLE S Performing Organization Address City/State/ZIP Code Phon e Number [address] POCT Glucose (07/08/2017 11:53 AM EST) athologist Signature POC Glucose 156 65 - 199 BARBARA RYAN mg/dL [facility] Comment: Supplemental ranges: [...] [facility]/ZIP Code Phon e Number [address] POCT Glucose (07/08/2017 11:04 AM EST) athologist Signature POC Glucose 181 65 - 199 BARBARA ZHAORYAN mg/dL [facility] Comment: Supplemental ranges: [...] [facility]/[place] [address] (ABNORMAL) POCT Glucose (07/08/2017 9:24 AM EST) athologist Signature POC Glucose 203 (H) 65 - 199 BARBARA RYAN mg/dL [facility] Comment: Supplemental ranges: <140 mg/dL before meals <180 mg/dL all other times of the day Specimen Anatomical Collection Method Collection Time Receive d Time (Source) Location / / Volume Laterality Blood specimen 07/08/2017 9:24 AM 017 9:24 (specimen) EST AM EST Yuan Webber MD POINT OF CARE TEST ORDERABLE S Performing Organization Address City/State/[facility] [place] [address] APTT (07/08/2017 8:40 AM [...] Webber MD HEMATOLOGY ORDERABLES Performing Organization Address [facility] [place] [address] (ABNORMAL) Prothrombin Time (07/08/2017 [...] Webber MD HEMATOLOGY ORDERABLES Performing Organization Address [facility] [place] [address] (ABNORMAL) POCT Glucose (07/08/2017 7:38 AM EST) athologist Signature POC Glucose 232 (H) 65 - 199 [facility] Comment: Supplemental ranges: <140 mg/dL before meals <180 mg/dL all other times of the day Specimen Anatomical Collection Method Collection Time Receive d Time (Source) Location / / Volume Laterality Blood specimen 07/08/2017 7:38 AM 017 7:38 (specimen) EST AM EST Yuan Webber MD POINT OF CARE TEST ORDERABLE S Performing Organization Address City/State/[place] [address] (ABNORMAL) POCT Glucose (07/08/2017 7:07 AM EST) athologist Signature POC Glucose 234 (H) 65 - 199 [facility]dL [facility] Comment: Supplemental ranges: <140 mg/dL before meals <180 mg/dL all other times of the day Specimen Anatomical Collection Method Collection Time Receive d Time (Source) Location / / Volume Laterality Blood specimen 07/08/2017 7:07 AM 017 7:07 (specimen) EST AM EST Yuan Webber MD POINT OF CARE TEST ORDERABLE S Performing Organization Address City/State/[place] [address] (ABNORMAL) POCT Glucose (07/08/2017 6:04 AM EST) athologist Signature POC Glucose 225 (H) 65 - 199 [facility] mg[facility]dL [facility] Comment: Supplemental ranges: <140 mg/dL before meals <180 mg/dL all other times of the day Specimen Anatomical Collection Method Collection Time Receive d Time (Source) Location / / Volume Laterality Blood specimen 07/08/2017 6:04 AM 017 6:04 (specimen) EST AM EST Yuan Webber MD POINT OF CARE TEST ORDERABLE S Performing Organization Address City/State/[place] [address] (ABNORMAL) POCT Glucose (07/08/2017 5:31 AM EST) athologist Signature POC Glucose 216 (H) 65 - 199 [facility] mg/dL [facility] Comment: Supplemental ranges: <140 mg/dL before meals <180 mg/dL all other times of the day Specimen Anatomical Collection Method Collection Time Receive d Time (Source) Location / / Volume Laterality Blood specimen 07/08/2017 5:31 AM 017 5:31 (specimen) EST AM EST Yuan Webber MD POINT OF CARE TEST ORDERABLE S Performing Organization Address City/State/[place] [address] (ABNORMAL) POCT Glucose (07/08/2017 4:52 AM EST) athologist Signature POC Glucose 257 (H) 65 - 199 [facility] Comment: Supplemental [...] [facility]/[place] [address] (ABNORMAL) BLOOD GAS 2 ARTERIAL (07/08/2017 4:04 AM EST) Analysis Performed At Patho logist Time Signature pH Art 7.30 (L) 7.35 - [facility] 7.45 [facility] pCO2 Art 41 35 - 45 [facility] mmHg [facility] pO2 Art 83 (L) 85 - 104 [facility] mmHg [facility] HCO3 Art 19.6 (L) 20.0 - [facility] 26.0 [facility] mmol/L [facility] LABORATORY BE Art -6.8 (L) -3.0 - 3.0 [facility] mmol/L [facility] Hgb Blood Gas 12.2 (L) 13.7 - [facility] 16.5 gm/dL [facility] O2HB Art 93.5 (L) 94.0 - [facility] 97.0 % [facility] COHB Art 0.4 % [facility] [...] Bld 274 (H) 65 - 199 mg/dL [facility] Comment: Diabetes: >=200 mg/dL plus symp toms. Lactate WB 4.4 (Critical) 0.5 - 2.2 mmol/L [facility] Comment: Noted by precision mechanical instrument maker. FIO2 Art 40 % [facility] PF Ratio Art 208 [facility]ORY Specimen Anatomical Collection Method Collection Time Receive d Time (Source) Location / / Volume Laterality Blood specimen 07/08/2017 4:04 AM 017 4:04 (specimen) EST AM EST Daphne Shahid MD CHEMISTRY ORDERABLES Performing Organization Address City/State/ZIP [place] [address] Scan, Peripheral Blood (07/08/2017 [...] Organization Address City/State/ZIP [place] [address] (ABNORMAL) Differential, Automated (07/08/2017 4:00 AM EST) [facility] Method Time Signature Neutrophils % 85.4 % [facility] Neutr Abs (ANC) 16.07 (H) 1.70 - [facility] 6.10 [facility] x10(3)/[facility] LABORATORY Lymphocytes % 3.5 % [facility] Lymphocytes Abs 0.6 (L) 0.9 - 3.2 [facility] x10(3)/[facility] LABORATORY Monocytes % 10.4 % [facility] Monocyte Abs 2.0 (H) 0.3 - 0.9 [facility] x10(3)/[facility] LABORATORY Eosinophils % 0.0 % [facility] Eosinophils Abs 0.0 0.0 - 0.4 [facility] x10(3)/[facility] LABORATORY Basophils % 0.1 % [facility] Basophils Abs 0.0 0.0 - 0.1 [facility] x10(3)/[facility] LABORATORY Immature Gran % 0.60 [...] Gran Abs 0.12 (H) 0.00 - 0.04 x10(3)/[facility] LABORATORY Specimen Anatomical Collection Method Collection Time Receive d Time (Source) Location / / Volume Laterality Blood specimen 07/08/2017 4:00 AM 017 4:09 (specimen) EST AM EST Resulting Agency Comment Spec In Lab Yuan Webber MD HEMATOLOGY ORDERABLES Performing Organization Address City/State/ZIP [place] [address] (ABNORMAL) Hemogram (07/08/2017 4:00 AM EST) Analysis Performed At Patho logist Time Signature WBC 18.8 (H) 4.0 - 9.5 [facility] x[facility](3[facility] LABORATORY RBC 4.00 (L) 4.58 - [place]A RYAN 5.54 [facility] x10(6)/[facility] LABORATORY Hemoglobin 11.9 (L) 13.7 - [facility] 16.5 gm/dL [facility] Hematocrit 35.9 (L) 40.5 - [facility] 48.5 % [facility] MCV 89.8 82.9 - [facility] 93.1 [facility] LABORATORY MCH 29.8 27.5 - [facility] 32.1 pg [facility] MCHC 33.1 32.0 - BARBARA RYAN 35.7 gm/dL [facility] Platelets 232 145 - 357 [facility] x10(3)/[facility] LABORATORY RDWSD 47.6 (H) 36.0 - BARBARA RYAN 45.0 [facility] LABORATORY RDWCV 14.5 (H) 11.4 - [facility] RYAN 13.8 % [facility] MPV 9.5 7.6 - 12.9 [facility] LABORATORY nRBC % Auto 0.0 % [facility] nRBC Abs Auto 0.000 0.000 - [place] RYAN 0.000 [facility] x10(3)/[facility] LABORATORY Specimen Anatomical Collection Method Collection Time Receive d Time (Source) Location / / Volume Laterality Blood specimen 07/08/2017 4:00 AM 017 4:09 (specimen) EST AM EST Resulting Agency Comment Spec In Lab Yuan Webber MD HEMATOLOGY ORDERABLES Performing Organization Address City/State/ZIP [place] [address] (ABNORMAL) Electrolytes panel (07/08/2017 4:00 AM EST) P athologist Signature Sodium 139 135 - 145 [facility] mmol/L [facility] Potassium 4.7 3.5 - 5.0 [facility] mmol/L [facility] Comment: result [id number] Please note: [...] Organization Address City/State/ZIP [place] [address] (ABNORMAL) Cardiac Enzymes (LEB/CGP) (07/08/2017 4:00 AM EST) athologist [facility] Troponin-T 1.88 (H) 0.00 - [facility] 0.00 ng/mL [facility] Comment: The [...] additional sample may be indicated. Reference: Third Silva Definition of Myocardial Infarction. Journal of the [place] [employer] 2012;60:1581-98 CK, Total 413 [...] Organization Address City/State/ZIP [place] [address] (ABNORMAL) Glucose, fasting (07/08/2017 4:00 AM EST) P athologist Signature Glucose 287 (H) 65 - 99 [facility] Fasting mg/dL [facility] Comment: ?Fasting* [...] of Diabetes Mellitus, Position Statement from the [place] [employer]. ??Diabete s Care, Volume 33, Supplement 1, Jul 2009 Specimen Anatomical Collection Method Collection Time Receive d Time (Source) Location / / Volume Laterality Blood specimen 07/08/2017 4:00 AM 017 4:09 (specimen) EST AM EST Resulting Agency Comment Spec In Lab Yuan Webber MD CHEMISTRY ORDERABLES Performing Organization Address City/[facility]/[place] [address] (ABNORMAL) Creatinine (07/08/2017 4:00 AM EST) Analysis Performed At Patho logist Time Signature Creatinine 1.55 (H) 0.80 - [facility] 1.[facility] mg/dL [facility] Estimated GFR 44 (L) >=60 [facility] Comment: The reported eGFR should be multiplied b y 1.2 for patients. The MDRD is not an appropriate measure o f renal function for patients with body mass extremes or in patients with acute kidney failure. http://OpenZine/DHnkdep http://OpenZine/DHMCnkf Specimen Anatomical Collection Method Collection Time Receive d Time (Source) Location / / Volume Laterality Blood specimen 07/08/2017 4:00 AM 017 4:09 (specimen) EST AM EST Resulting Agency Comment Spec In Lab Yuan Webber MD CHEMISTRY ORDERABLES Performing Organization Address City/[facility]/[place] [address] BUN (07/08/2017 4:00 AM EST) P athologist Signature BUN 16 10 - 20 [facility] mg/dL [facility] Specimen Anatomical Collection Method Collection Time Receive d Time (Source) Location / / Volume Laterality Blood specimen 07/08/2017 4:00 AM 017 4:09 (specimen) EST AM EST Resulting Agency Comment Spec In Lab Yuan Webber MD CHEMISTRY ORDERABLES Performing Organization Address City/[facility]/[place] [address] (ABNORMAL) POCT Glucose (07/08/2017 3:00 AM EST) P athologist Signature POC Glucose 273 (H) 65 - 199 [facility] mg/dL [facility] Comment: Supplemental ranges: [...] [facility]/[place] [address] (ABNORMAL) POCT Glucose (07/08/2017 1:57 AM EST) athologist Signature POC Glucose 288 (H) 65 - 199 [facility] mg/dL [facility] Comment: Supplemental ranges: [...] [facility]/[place] [address] (ABNORMAL) POCT Glucose (07/08/2017 1:01 AM EST) athologist Signature POC Glucose 315 (H) 65 - 199 [facility] mg/dL [facility] Comment: Supplemental ranges: <140 mg/dL before meals <180 mg/dL all other times of the day Specimen Anatomical Collection Method Collection Time Receive d Time (Source) Location / / Volume Laterality Blood specimen 07/08/2017 1:01 AM 017 1:01 (specimen) EST AM EST Daphne Shahid MD POINT OF CARE TEST ORDERABLE S Performing Organization Address City/State/[place] [address] (ABNORMAL) BLOOD GAS 2 ARTERIAL (07/08/2017 12:09 AM EST) athologist Signature pH Art 7.26 7.35 - [facility] (Critical) 7.45 [facility] Comment: Noted by precision mechanical instrument maker. pCO2 Art 41 35 - 45 mmHg [facility]ORY pO2 Art 96 85 - 104 mmHg [facility] HCO3 Art 17.7 (L) 20.0 - 26.0 mmol/L [facility] BE Art -9.4 (L) -3.0 - 3.0 mmol/L [facility] Hgb Blood Gas 12.4 (L) 13.7 - 16.5 gm/dL [facility] O2HB Art 94.7 94.0 - 97.0 % [facility] COHB Art 0.2 [...] Bld 315 (H) 65 - 199 mg/dL [facility] Comment: Diabetes: >=200 mg/dL plus symp toms. Lactate WB 7.6 (Critical) 0.5 - 2.2 mmol/L [facility] Comment: Noted by precision mechanical instrument maker. FIO2 Art 40 % [facility] Organization Address City/State/[place] [address] (ABNORMAL) POCT Glucose (07/07/2017 10:56 PM EST) athologist Signature POC Glucose 292 (H) 65 - 199 [facility] mg/dL [facility] Comment: Supplemental ranges: [...] [facility]/[place] [address] (ABNORMAL) BLOOD GAS 2 ARTERIAL (07/07/2017 10:04 PM EST) athologist Signature pH Art 7.22 7.35 - [facility] (Critical) 7.45 [facility] Comment: Noted by precision mechanical instrument maker. pCO2 Art 42 35 - 45 mmHg [facility] pO2 Art 94 85 - 104 mmHg [facility] HCO3 Art 16.9 (L) 20.0 - 26.0 mmol/L [facility] BE Art -10.7 (L) -3.0 - 3.0 mmol/L [facility] Hgb Blood Gas 13.0 (L) 13.7 - 16.5 gm/dL [facility] O2HB Art 93.8 (L) 94.0 - 97.0 % [facility] COHB Art 0.7 [...] Bld 304 (H) 65 - 199 mg/dL [facility] Comment: Diabetes: >=200 mg/dL plus symp toms. Lactate WB 8.2 (Critical) 0.5 - 2.2 mmol/L [facility] Comment: Noted by precision mechanical instrument maker. FIO2 Art 40 % [facility] PF Ratio Art 235 [facility] Specimen Anatomical Collection Method Collection Time Receive d Time (Source) Location / / Volume Laterality Blood specimen 07/07/2017 10:04 7 (specimen) PM EST 10:04 PM EST Daphne Shahid MD CHEMISTRY ORDERABLES Performing Organization Address City/[facility]/ZIP Code Phon e Number [address] (ABNORMAL) Hemoglobin (07/07/2017 10:00 PM EST) athologist Signature Hemoglobin 12.8 (L) 13.7 - [facility] 16.5 gm/dL [facility] Specimen Anatomical Collection Method Collection Time Receive d Time (Source) Location / / Volume Laterality Blood specimen 07/07/2017 10:00 7 (specimen) PM EST 10:13 PM EST Resulting Agency Comment Spec In Lab Yuan Webber MD HEMATOLOGY ORDERABLES Performing Organization Address City/State/ZIP Code Phon e Number [address] (ABNORMAL) Potassium (07/07/2017 10:00 PM EST) P athologist Signature Potassium 3.4 (L) 3.5 - 5.0 [facility] mmol/L [facility] Comment: Please note: [...] Webber MD CHEMISTRY ORDERABLES Performing Organization Address City/[facility]/ZIP Code Phon e Number [address] (ABNORMAL) POCT Glucose (07/07/2017 8:49 PM EST) athologist [facility] POC Glucose 241 (H) 65 - 199 [facility] mg/dL [facility] Comment: Supplemental ranges: [...] [facility]/[place] [address] Prepare Albumin 5% in 250 mL (07/07/2017 8:03 PM EST) athologist [facility] Dispensed? Yes [facility] Specimen Anatomical Collection Method Collection Time Receive d Time (Source) Location / / Volume Laterality Blood specimen No Charge / 07/07/2017 8:03 PM 017 8:04 (specimen) Unknown EST PM EST Resulting Agency Comment Spec In Lab Michael BROWN BLOOD BANK ORDERABLES Performing Organization Address City/[facility]/[place] [address] EKG 12 Lead (07/07/2017 7:17 PM EST) Component Value Ref Range Test Analysis Performed Pathologis t Method Time At Signature Ventricular rate 75 BPM MUSE SYSTEM Atrial Rate 75 BPM MUSE SYSTEM P-R Interval 168 ms MUSE SYSTEM QRS Duration 104 ms MUSE SYSTEM Q-T Interval 462 ms MUSE SYSTEM QTC Calculated 515 ms MUSE SYSTEM (Bezet) Calculated P [place] 52 degrees MUSE SYSTEM Calculated R [place] -40 degrees MUSE SYSTEM Calculated T [place] 39 degrees MUSE SYSTEM INTERPRETATION Normal sinus [...] Signature pH Art 7.21 7.35 - [facility] (Critical) 7.45 [facility] Comment: Noted by precision mechanical instrument maker. pCO2 Art 50 (H) 35 - 45 mmHg [facility] pO2 Art 238 (H) 85 - 104 mmHg [facility] HCO3 Art 19.8 (L) 20.0 - 26.0 mmol/L [facility] BE Art -8.1 (L) -3.0 - 3.0 mmol/L [facility] Hgb Blood Gas 12.8 (L) 13.7 - 16.5 gm/dL [facility] O2HB Art 97.5 (H) 94.0 - 97.0 % [facility] COHB Art 0.5 [...] Blood 3.0 (Critical) 3.5 - 5.0 mmol/L [facility] Comment: Noted by precision mechanical instrument [...] Bld 270 (H) 65 - 199 mg/dL [facility] Comment: Diabetes: >=200 mg/dL plus symp toms. Lactate WB 4.9 (Critical) 0.5 - 2.2 mmol/L [facility] Comment: Noted by precision mechanical instrument maker. FIO2 Art 100 % [facility] PF Ratio Art 238 [facility] Specimen Anatomical Collection Method Collection Time Receive d Time (Source) Location / / Volume Laterality Blood specimen 07/07/2017 6:57 PM 017 6:57 (specimen) EST PM EST Daphne Sahhid MD CHEMISTRY ORDERABLES Performing Organization Address City/State/ZIP [place] [address] (ABNORMAL) BLOOD GAS 2 ARTERIAL (07/07/2017 5:31 PM EST) P athologist Signature pH Art 7.29 7.35 - [facility] (Critical) 7.45 [facility] Comment: Noted by precision mechanical instrument maker. pCO2 Art 48 (H) 35 - 45 mmHg [facility]ORY pO2 Art 137 (H) 85 - 104 mmHg [facility] HCO3 Art 22.4 20.0 - 26.0 mmol/L [facility] BE Art -4.3 (L) -3.0 - 3.0 mmol/L [facility] Hgb Blood Gas 10.0 (L) 13.7 - 16.5 gm/dL [facility] O2HB Art 97.3 (H) 94.0 - 97.0 % [facility] COHB Art 0.3 [...] Bld 293 (H) 65 - 199 mg/dL [facility] [...] Organization Address City/State/ZIP [place] [address] Fibrinogen (07/07/2017 5:30 PM EST) P athologist Signature Fibrinogen 224 180 - 510 [facility] mg/dL [facility] Comment: Called by: JEET, Read [...] HEMATOLOGY ORDERABLES Performing Organization Address [facility] Phon e Number [address] APTT (07/07/2017 5:30 PM [...] HEMATOLOGY ORDERABLES Performing Organization Address [facility] [place] [address] (ABNORMAL) Prothrombin Time (07/07/2017 [...] Organization Address City/State/ZIP [place] [address] (ABNORMAL) Hemogram (07/07/2017 5:30 PM EST) P athologist Signature WBC 19.6 (H) 4.0 - 9.5 [facility] x10(3)/[facility] LABORATORY RBC 3.08 (L) 4.58 - [facility] 5.54 [facility] x10(6)/[facility] LABORATORY Hemoglobin 9.2 (L) 13.7 - [facility] 16.5 gm/dL [facility] Hematocrit 28.0 (L) 40.5 - [facility] 48.5 % [facility] Comment: This result has been called to MONICA MORAN by DONALD GROSSMAN on 07 07 2017 at 1759, and has been read back. MCV 90.9 82.9 - 93.1 [facility] LABORATORY MCH 29.9 27.5 - 32.1 pg [facility] MCHC 32.9 32.0 - 35.7 gm/dL [facility] Platelets 155 145 - 357 x10(3)/[facility] LABORATORY RDWSD 46.5 (H) 36.0 - 45.0 [facility] LABORATORY RDWCV 14.1 (H) 11.4 - 13.8 % [facility]ATORY MPV 9.5 7.6 - 12.9 [facility] LABORATORY nRBC % Auto 0.0 % [facility]ORY nRBC Abs Auto 0.000 0.000 - 0.000 x10(3)/[facility] LABORATORY Specimen Anatomical Collection Method Collection Time Receive d Time (Source) Location / / Volume Laterality Blood specimen 07/07/2017 5:30 PM 017 5:34 (specimen) EST PM EST Resulting Agency Comment Spec In Lab Yifan Perez MD HEMATOLOGY ORDERABLES Performing Organization Address City/[facility]/ZIP Code Phon e Number [address] Prepare Platelets, Apheresis (07/07/2017 5:00 PM EST) P athologist Signature Dispensed? Yes [facility] Specimen Anatomical Collection Method Collection Time Receive d Time (Source) Location / / Volume Laterality Blood specimen 07/07/2017 5:00 PM 017 4:58 (specimen) EST PM EST Daphne Shahid MD BLOOD BANK ORDERABLES Performing Organization Address City/[facility]/ZIP Code Phon e Number [address] Platelet count (07/07/2017 4:55 PM EST) athologist Signature Platelets 177 145 - 357 [facility] x10(3)/[facility] LABORATORY Plat Immature 1.5 0.0 - 7.4 [facility] % % [facility] Comment: Limitation of the Immature Platelet Frac tion (IPF)-May be less reliable when the platelet count is less than 66w183/u L due to statistical imprecision. The IPF [...] in a decreased state of production. References: [employer] The Clinical Value of the Immature Platelet Fraction (IPF) in Cell Recovery Document Number [id number] 12/2010 [employer] The Role of the Imm ature Platelet Fraction (IPF) in the Differential Diagnosis of Thrombocytopen ia, Document [id number] V012/04/13 P05/14 Specimen Anatomical Collection Method Collection Time Receive d Time (Source) Location / / Volume Laterality Blood specimen 07/07/2017 4:55 PM 017 5:13 (specimen) EST PM EST Resulting Agency Comment Spec In Lab Daphne Shahid MD HEMATOLOGY ORDERABLES Performing Organization Address City/State/ZIP Code Phon e Number [place] [id number]OS[address] LAB[address]ORY [address] (ABNORMAL) Hemoglobin and Hematocrit, blood (07/07/2017 4:55 PM EST) P athologist Signature Hemoglobin 9.1 (L) 13.7 - 16.5 [facility] gm/dL [facility] Comment: This result has been [...] Organization Address City/State/ZIP [place] [address] (ABNORMAL) BLOOD GAS 2 ARTERIAL (07/07/2017 4:38 PM EST) Analysis Performed At Patho logist Time Signature pH Art 7.37 7.35 - [facility] 7.45 [facility] pCO2 Art 44 35 - 45 [facility] mmHg [facility] pO2 Art 322 (H) 85 - 104 [facility] mmHg [facility] HCO3 Art 24.9 20.0 - [facility] 26.0 [facility] mmol/L [facility] LABORATORY BE Art -0.4 -3.0 - 3.0 [facility] mmol/L [facility] Hgb Blood Gas 10.1 (L) 13.7 - [facility] 16.5 gm/dL [facility] O2HB Art 98.7 (H) 94.0 - [facility] 97.0 % [facility] COHB Art 0.1 % [facility] Comment: Noted by precision mechanical instrument maker. Note: ??Total bilirubin higher than 20 m g/dL may lead to falsely low ionized calcium. CL Whole Blood 101 98 - 107 mmol/L [facility] LABORATORY Gluc Whole Bld 295 (H) 65 - 199 mg/dL [facility] [...] Organization Address City/State/ZIP [place] [address] (ABNORMAL) BLOOD GAS 2 VENOUS (07/07/2017 4:06 PM EST) Analysis Performed At Patho logist Time Signature pH Cody 7.31 (L) 7.32 - [facility] 7.42 [facility] pCO2 Cody 47 41 - 51 [facility] LABORATORY pO2 Cody 53 (H) 25 - 40 [facility] LABORATORY HCO3 Cody 22.7 mmol/L [facility] BE Cody -3.7 mmol/L [facility] Hgb Blood Gas 10.2 (L) 13.7 - [facility] 16.5 gm/dL [facility] O2HB Cody 81.0 % [facility] Comment: Noted by precision mechanical instrument maker. Note: ??Total bilirubin higher than 20 m g/dL may lead to falsely low ionized calcium. CL Whole Blood 100 98 - 107 mmol/L [facility] Gluc Whole Bld 231 (H) 65 - 199 mg/dL [facility] Comment: Diabetes: >=200 mg/dL plus symp toms Lactate WB 1.1 0.5 - 2.2 mmol/L [facility] LABORATORY BGas Source Venous [facility] LABORATORY Specimen Anatomical Collection Method Collection Time Receive d Time (Source) Location / / Volume Laterality Blood specimen 07/07/2017 4:06 PM 017 4:06 (specimen) EST PM EST Daphne Shahid MD CHEMISTRY ORDERABLES Performing Organization Address City/State/ZIP [place] [address] (ABNORMAL) BLOOD GAS 2 ARTERIAL (07/07/2017 4:05 PM EST) Analysis Performed At Patho logist Time Signature pH Art 7.36 7.35 - [facility] 7.45 [facility] pCO2 Art 40 35 - 45 [facility] LABORATORY pO2 Art 282 (H) 85 - 104 [facility] LABORATORY HCO3 Art 22.1 20.0 - [facility] 26.0 [facility] mmol/L [facility] LABORATORY BE Art -3.4 (L) -3.0 - 3.0 [facility] mmol/L [facility] Hgb Blood Gas 10.2 (L) 13.7 - [facility] 16.5 gm/dL [facility] O2HB Art 98.4 (H) 94.0 - [facility] 97.0 % [facility] COHB Art 0.3 % [facility] Comment: Noted by precision mechanical instrument maker. Note: ??Total bilirubin higher than 20 m g/dL may lead to falsely low ionized calcium. CL Whole Blood 101 98 - 107 mmol/L [facility] Gluc Whole Bld 260 (H) 65 - 199 mg/dL [facility] [...] Organization Address City/State/ZIP [place] [address] (ABNORMAL) BLOOD GAS 2 ARTERIAL (07/07/2017 2:29 PM EST) Analysis Performed At Patho logist Time Signature pH Art 7.43 7.35 - [facility] 7.45 [facility] pCO2 Art 36 35 - 45 [facility] mmHg [facility] pO2 Art 221 (H) 85 - 104 [facility] LABORATORY HCO3 Art 23.2 20.0 - [facility] 26.0 [facility] mmol/L [facility] LABORATORY BE Art -1.2 -3.0 - 3.0 [facility] mmol/L [facility] Hgb Blood Gas 13.9 13.7 - [facility] 16.5 gm/dL [facility] O2HB Art 97.8 (H) 94.0 - [facility] 97.0 % [facility] COHB Art 1.1 % [facility] [...] Whole Bld 184 65 - 199 mg/dL [facility] Comment: Diabetes: >=200 mg/dL plus symp toms. Lactate WB 1.5 0.5 - 2.2 mmol/L [facility] Specimen Anatomical Collection Method Collection Time Receive d Time (Source) Location / / Volume Laterality Blood specimen 07/07/2017 2:29 PM 017 2:29 (specimen) EST PM EST Daphne Shahid MD CHEMISTRY ORDERABLES Performing Organization Address City/[facility]/ZIP Code Phon e Number [address] Prepare Coag Factors (Non-Hemophilia) (07/07/2017 1:25 PM EST) P athologist Signature Dispensed? Yes [facility] Specimen Anatomical Collection Method Collection Time Receive d Time (Source) Location / / Volume Laterality Blood specimen 07/07/2017 1:25 PM 017 1:21 (specimen) EST PM EST Daphne Shahid MD BLOOD BANK ORDERABLES Performing Organization Address [facility]/ZIP Code Phon e Number [address] Prepare RBC (07/07/2017 1:10 PM EST) P athologist Signature Dispensed? Yes [facility] Specimen Anatomical Collection Method Collection Time Receive d Time (Source) Location / / Volume Laterality Blood specimen 07/07/2017 1:10 PM 017 1:05 (specimen) EST PM EST Daphne Shahid MD BLOOD BANK ORDERABLES Performing Organization Address City/[facility]/[place] [address] POCT Glucose (07/07/2017 11:56 AM EST) P athologist Signature POC Glucose 188 65 - 199 [facility] mg/dL [facility] Comment: Supplemental ranges: [...] [facility]/ZIP Code Phon e Number [address] POCT Glucose (07/07/2017 11:05 AM EST) athologist Signature POC Glucose 168 65 - 199 [facility] RYAN mg/dL [facility] Comment: Supplemental ranges: <140 mg/dL before meals <180 mg/dL all other times of the day Specimen Anatomical Collection Method Collection Time Receive d Time (Source) Location / / Volume Laterality Blood specimen 07/07/2017 11:05 7 (specimen) AM EST 11:05 AM EST Daphne Shahid MD POINT OF CARE TEST ORDERABLE S Performing Organization Address City/State/ZIP Code Phon e Number [address] POCT Glucose (07/07/2017 10:02 AM EST) athologist Signature POC Glucose 191 65 - 199 [facility] mg/dL [facility] Comment: Supplemental ranges: <140 mg/dL before meals <180 mg/dL all other times of the day Specimen Anatomical Collection Method Collection Time Receive d Time (Source) Location / / Volume Laterality Blood specimen 07/07/2017 10:02 7 (specimen) AM EST 10:02 AM EST Daphne Shahid MD POINT OF CARE TEST ORDERABLE S Performing Organization Address City/State/ZIP Code Phon e Number [address] POCT Glucose (07/07/2017 7:53 AM EST) athologist Signature POC Glucose 178 65 - 199 [facility] RYAN mg/dL [facility] Comment: Supplemental ranges: <140 mg/dL before meals <180 mg/dL all other times of the day Specimen Anatomical Collection Method Collection Time Receive d Time (Source) Location / / Volume Laterality Blood specimen 07/07/2017 7:53 AM 017 7:53 (specimen) EST AM EST Daphne Shahid MD POINT OF CARE TEST ORDERABLE S Performing Organization Address City/State/[place] [address] POCT Glucose (07/07/2017 7:03 AM EST) athologist Signature POC Glucose 188 65 - 199 [facility] mg/dL [facility] Comment: Supplemental ranges: <140 mg/dL before meals <180 mg/dL all other times of the day Specimen Anatomical Collection Method Collection Time Receive d Time (Source) Location / / Volume Laterality Blood specimen 07/07/2017 7:03 AM 017 7:03 (specimen) EST AM EST Daphne Shahid MD POINT OF CARE TEST ORDERABLE S Performing Organization Address City/State/ZIP Code Phon e Number [address] (ABNORMAL) POCT Glucose (07/07/2017 6:17 AM EST) athologist Signature POC Glucose 207 (H) 65 - 199 [facility] mg/dL [facility] Comment: Supplemental ranges: [...] [facility]/ZIP Code Phon e Number [address] Differential, Automated (07/07/2017 5:15 AM EST) athologist [facility] Neutrophils % 69.7 % [facility] Neutr Abs (ANC) 5.32 1.70 - [facility] 6.10 [facility] x10(3)/[facility] LABORATORY Lymphocytes % 16.3 % [facility] Lymphocytes Abs 1.2 0.9 - 3.2 [facility] x10(3)/[facility] LABORATORY Monocytes % 10.5 % [facility] Monocyte Abs 0.8 0.3 - 0.9 [facility] x10(3)/[facility] LABORATORY Eosinophils % 2.5 % [facility] Eosinophils Abs 0.2 0.0 - 0.4 [facility] x10(3)/[facility] LABORATORY Basophils % 0.7 % [facility] Basophils Abs 0.0 0.0 - 0.1 [facility] x10(3)/[facility] LABORATORY Immature Gran % 0.30 % [...] Melisa Gran Abs 0.02 0.00 - 0.04 x10(3)/[facility] LABORATORY Specimen Anatomical Collection Method Collection Time Receive d Time (Source) Location / / Volume Laterality Blood specimen 07/07/2017 5:15 AM 017 5:34 (specimen) EST AM EST Resulting Agency Comment Spec In Lab Daphne Shahid MD HEMATOLOGY ORDERABLES Performing Organization Address City/State/ZIP [place] [address] (ABNORMAL) Hemogram (07/07/2017 5:15 AM EST) Analysis Performed At Patho logist Time Signature WBC 7.6 4.0 - 9.5 [facility] x10(3)/[facility] LABORATORY RBC 4.82 4.58 [facility] 5.54 [facility] x10(6)/[facility] LABORATORY Hemoglobin 14.4 13.7 - [facility] 16.5 gm/dL [facility] Hematocrit 42.1 40.5 - [facility] 48.5 % [facility] MCV 87.3 82.9 - [facility] 93.1 [facility] LABORATORY MCH 29.9 27.5 - [facility] RYAN 32.1 pg [facility] MCHC 34.2 32.0 - [facility] 35.7 gm/dL [facility] Platelets 188 145 - 357 [facility] x10(3)/[facility] LABORATORY RDWSD 45.1 (H) 36.0 - [facility] RYAN 45.0 [facility] LABORATORY RDWCV 14.3 (H) 11.4 - [facility] 13.8 % [facility] MPV 9.4 7.6 - 12.9 [facility] LABORATORY nRBC % Auto 0.0 % [facility] nRBC Abs Auto 0.000 0.000 - [facility] 0.000 [facility] x10(3)/[facility] LABORATORY Specimen Anatomical Collection Method Collection Time Receive d Time (Source) Location / / Volume Laterality Blood specimen 07/07/2017 5:15 AM 017 5:34 (specimen) EST AM EST Resulting Agency Comment Spec In Lab Daphne Shahid MD HEMATOLOGY ORDERABLES Performing Organization Address City/State/ZIP Code Phon e Number [address] (ABNORMAL) APTT (07/07/2017 5:15 [...] Address City/State/ZIP Code Phon e Number [address] Magnesium (07/07/2017 5:15 AM EST) P athologist Signature Magnesium 0.94 0.69 - 1.07 [facility] mmol/L [facility] Specimen Anatomical Collection Method Collection Time Receive d Time (Source) Location / / Volume Laterality Blood specimen 07/07/2017 5:15 AM 017 5:34 (specimen) EST AM EST Resulting Agency Comment Spec In Lab Daphne Shahid MD CHEMISTRY ORDERABLES Performing Organization Address City/[facility]/ZIP [place] [address] (ABNORMAL) Basic Metabolic Panel (non-fasting) (07/07/2017 5:15 AM EST) P athologist Signature Glucose Lvl 203 (H) 65 - 199 [facility] mg/dL [facility] Comment: Diabetes: >=200 mg/dL plus symp toms BUN 15 10 - 20 mg/dL [facility] LABORATORY Creatinine 1.09 0.80 [...] [facility]ICAL [facility]ENTER LABORATORY Estimated GFR >60 >=60 [facility] Comment: The reported eGFR should be multiplied b y 1.2 for patients. The MDRD is not an appropriate measure o f renal function for patients with body mass extremes or in patients with acute kidney failure. http://[employer]DHnkdep http://[employer]/DHMCnkf Specimen Anatomical Collection Method Collection Time Receive d Time (Source) Location / / Volume Laterality Blood specimen 07/07/2017 5:15 AM 017 5:34 (specimen) EST AM EST Resulting Agency Comment Spec In Lab Daphne Shahid MD CHEMISTRY ORDERABLES Performing Organization Address City/[facility]/ZIP [place] [address] (ABNORMAL) Cardiac Enzymes (LEB/CGP) (07/07/2017 5:15 AM EST) athologist Signature Troponin-T 2.07 (H) 0.00 - [facility] 0.00 ng/mL [facility] Comment: The [...] additional sample may be indicated. Reference: Third Silva Definition of Myocardial Infarction. Journal of the [place] [employer] 2012;60:1581-98 CK, Total 88 0 - 200 unit/L [facility] Specimen Anatomical Collection Method Collection Time Receive d Time (Source) Location / / Volume Laterality Blood specimen 07/07/2017 5:15 AM 017 5:34 (specimen) EST AM EST Resulting Agency Comment Spec In Lab Daphne Shahid MD CHEMISTRY ORDERABLES Performing Organization Address City/State/ZIP Code Phon e Number [address] POCT Glucose (07/07/2017 5:01 AM EST) athologist Signature POC Glucose 182 65 - 199 [facility] mg/dL [facility] Comment: Supplemental ranges: <140 mg/dL before meals <180 mg/dL all other times of the day Specimen Anatomical Collection Method Collection Time Receive d Time (Source) Location / / Volume Laterality Blood specimen 07/07/2017 5:01 AM 017 5:01 (specimen) EST AM EST Daphne Shahid MD POINT OF CARE TEST ORDERABLE S Performing Organization Address City/State/[place] [address] POCT Glucose (07/07/2017 4:08 AM EST) athologist Signature POC Glucose 199 65 - 199 [facility] mg/dL [facility] Comment: Supplemental ranges: <140 mg/dL before meals <180 mg/dL all other times of the day Specimen Anatomical Collection Method Collection Time Receive d Time (Source) Location / / Volume Laterality Blood specimen 07/07/2017 4:08 AM 017 4:08 (specimen) EST AM EST Daphne Shahid MD POINT OF CARE TEST ORDERABLE S Performing Organization Address City/State/ZIP Code Phon e Number [address] POCT Glucose (07/07/2017 3:03 AM EST) athologist Signature POC Glucose 188 65 - 199 [facility] mg/dL [facility] Comment: Supplemental ranges: <140 mg/dL before meals <180 mg/dL all other times of the day Specimen Anatomical Collection Method Collection Time Receive d Time (Source) Location / / Volume Laterality Blood specimen 07/07/2017 3:03 AM 017 3:03 (specimen) EST AM EST Daphne Shahid MD POINT OF CARE TEST ORDERABLE S Performing Organization Address City/State/[place] [address] (ABNORMAL) POCT Glucose (07/07/2017 2:08 AM EST) P athologist Signature POC Glucose 200 (H) 65 - 199 [facility] mg/dL [facility] Comment: Supplemental ranges: <140 mg/dL before meals <180 mg/dL all other times of the day Specimen Anatomical Collection Method Collection Time Receive d Time (Source) Location / / Volume Laterality Blood specimen 07/07/2017 2:08 AM 017 2:08 (specimen) EST AM EST Daphne Shahid MD POINT OF CARE TEST ORDERABLE S Performing Organization Address City/State/[place] [address] (ABNORMAL) POCT Glucose (07/07/2017 1:31 AM EST) P athologist Signature POC Glucose 209 (H) 65 - 199 [facility] mg/dL [facility] Comment: Supplemental ranges: <140 mg/dL before meals <180 mg/dL all other times of the day Specimen Anatomical Collection Method Collection Time Receive d Time (Source) Location / / Volume Laterality Blood specimen 07/07/2017 1:31 AM 017 1:31 (specimen) EST AM EST Daphne Shahid MD POINT OF CARE TEST ORDERABLE S Performing Organization Address City/State/[place] [address] XR Chest PA or [...] POC Glucose 161 65 - 199 [facility] mg/dL [facility] Comment: Supplemental ranges: [...] [facility]/[place] [address] (ABNORMAL) APTT (07/07/2017 12:00 [...] Address City/State/ZIP Code Phon e Number [address] POCT Glucose (07/06/2017 9:55 PM EST) athologist Signature POC Glucose 109 65 - 199 [facility] mg/dL [facility] Comment: Supplemental ranges: [...] [facility]/[place] [address] POCT Glucose (07/06/2017 9:04 PM EST) athologist Signature POC Glucose 120 65 - 199 [facility] mg/dL [facility] Comment: Supplemental ranges: <140 mg/dL before meals <180 mg/dL all other times of the day Specimen Anatomical Collection Method Collection Time Receive d Time (Source) Location / / Volume Laterality Blood specimen 07/06/2017 9:04 PM 017 9:04 (specimen) EST PM EST Daphne Shahid MD POINT OF CARE TEST ORDERABLE S Performing Organization Address City/State/[place] [address] POCT Glucose (07/06/2017 7:45 PM EST) athologist Signature POC Glucose 158 65 - 199 [facility] mg/dL [facility] Comment: Supplemental ranges: <140 mg/dL before meals <180 mg/dL all other times of the day Specimen Anatomical Collection Method Collection Time Receive d Time (Source) Location / / Volume Laterality Blood specimen 07/06/2017 7:45 PM 017 7:45 (specimen) EST PM EST Daphne Shahid MD POINT OF CARE TEST ORDERABLE S Performing Organization Address City/State/ZIP Code Phon e Number [address] Potassium (07/06/2017 7:40 PM EST) athologist Signature Potassium 3.9 3.5 - 5.0 [facility] mmol/L [facility] Comment: Please note: [...] Organization Address City/State/ZIP [place] [address] (ABNORMAL) Cardiac Enzymes (LEB/CGP) (07/06/2017 7:40 PM EST) athologist Signature Troponin-T 2.27 (H) 0.00 - [facility] 0.00 ng/mL [facility] Comment: The [...] additional sample may be indicated. Reference: Third Silva Definition of Myocardial Infarction. Journal of the [place] [employer] 2012;60:1581-98 CK, Total 93 0 - 200 unit/L [facility] Specimen Anatomical Collection Method Collection Time Receive d Time (Source) Location / / Volume Laterality Blood specimen 07/06/2017 7:40 PM 017 7:52 (specimen) EST PM EST Resulting Agency Comment Spec In Lab Daphne Shahid MD CHEMISTRY ORDERABLES Performing Organization Address City/[facility]/[place] [address] (ABNORMAL) POCT Glucose (07/06/2017 7:13 PM EST) P athologist Signature POC Glucose 200 (H) 65 - 199 [facility] mg/dL [facility] Comment: Supplemental ranges: <140 mg/dL before meals <180 mg/dL all other times of the day Specimen Anatomical Collection Method Collection Time Receive d Time (Source) Location / / Volume Laterality Blood specimen 07/06/2017 7:13 PM 017 7:13 (specimen) EST PM EST Daphne Shahid MD POINT OF CARE TEST ORDERABLE S Performing Organization Address [facility] [place] [address] (ABNORMAL) APTT (07/06/2017 6:15 [...] Shahid MD HEMATOLOGY ORDERABLES Performing Organization Address City/[facility]/ZIP [facility] [place] [address] (ABNORMAL) POCT Glucose (07/06/2017 6:03 PM EST) P athologist Signature POC Glucose 236 (H) 65 - 199 [facility] mg/dL [facility] Comment: Supplemental ranges: <140 mg/dL before meals <180 mg/dL all other times of the day Specimen Anatomical Collection Method Collection Time Receive d Time (Source) Location / / Volume Laterality Blood specimen 07/06/2017 6:03 PM 017 6:03 (specimen) EST PM EST Daphne Shahid MD POINT OF CARE TEST ORDERABLE S Performing Organization Address City/State/[place] [address] (ABNORMAL) POCT Glucose (07/06/2017 5:01 PM EST) P athologist Signature POC Glucose 235 (H) 65 - 199 [facility] mg/dL [facility] Comment: Supplemental ranges: <140 mg/dL before meals <180 mg/dL all other times of the day Specimen Anatomical Collection Method Collection Time Receive d Time (Source) Location / / Volume Laterality Blood specimen 07/06/2017 5:01 PM 017 5:01 (specimen) EST PM EST Daphne Shahid MD POINT OF CARE TEST ORDERABLE S Performing Organization Address City/State/[place] [address] (ABNORMAL) POCT Glucose (07/06/2017 4:06 PM EST) P athologist Signature POC Glucose 202 (H) 65 - 199 [facility] mg/dL [facility] Comment: Supplemental ranges: <140 mg/dL before meals <180 mg/dL all other times of the day Specimen Anatomical Collection Method Collection Time Receive d Time (Source) Location / / Volume Laterality Blood specimen 07/06/2017 4:06 PM 017 4:06 (specimen) EST PM EST Daphne Shahid MD POINT OF CARE TEST ORDERABLE S Performing Organization Address City/State/[place] [address] POCT Glucose (07/06/2017 2:59 PM EST) P athologist Signature POC Glucose 178 65 - 199 [place] mg/dL [facility] Comment: Supplemental ranges: <140 mg/dL before meals <180 mg/dL all other times of the day Specimen Anatomical Collection Method Collection Time Receive d Time (Source) Location / / Volume Laterality Blood specimen 07/06/2017 2:59 PM 017 2:59 (specimen) EST PM EST Daphne Shahid MD POINT OF CARE TEST ORDERABLE S Performing Organization Address City/State/ZIP [place] [address] (ABNORMAL) Cardiac Enzymes (LEB/CGP) (07/06/2017 2:10 PM EST) athologist Signature Troponin-T 2.34 (H) 0.00 - [facility] 0.00 ng/mL [facility] Comment: The [...] additional sample may be indicated. Reference: Third Silva Definition of Myocardial Infarction. Journal of the [place] [employer] 2012;60:1581-98 CK, Total 101 0 - 200 unit/L [facility] Specimen Anatomical Collection Method Collection Time Receive d Time (Source) Location / / Volume Laterality Blood specimen 07/06/2017 2:10 PM 017 2:26 (specimen) EST PM EST Resulting Agency Comment Spec In Lab Daphne Shahid MD CHEMISTRY ORDERABLES Performing Organization Address City/State/ZIP Code Phon e Number [address] POCT Glucose (07/06/2017 2:08 PM EST) athologist Signature POC Glucose 192 65 - 199 [place] mg/dL [facility] Comment: Supplemental ranges: [...] [facility]/ZIP Code Phon e Number [address] POCT Glucose (07/06/2017 1:04 PM EST) athologist Signature POC Glucose 162 65 - 199 [place] mg/dL [facility] Comment: Supplemental ranges: [...] [facility]/ZIP [place] [address] POCT Glucose (07/06/2017 12:05 PM EST) athologist Signature POC Glucose 196 65 - 199 [place] mg/dL [facility] Comment: Supplemental ranges: <140 mg/dL before meals <180 mg/dL all other times of the day Specimen Anatomical Collection Method Collection Time Receive d Time (Source) Location / / Volume Laterality Blood specimen 07/06/2017 12:05 7 (specimen) PM EST 12:05 PM EST Daphne Shahid MD POINT OF CARE TEST ORDERABLE S Performing Organization Address City/State/ZIP [place] [address] EKG 12 Lead (07/06/2017 12:00 PM EST) Component Value Ref Range Test Analysis Performed Pathologis t Method Time At Signature Ventricular rate 91 BPM MUSE SYSTEM Atrial Rate 91 BPM MUSE SYSTEM P-R Interval 140 ms MUSE SYSTEM QRS Duration 94 ms MUSE SYSTEM Q-T Interval 394 ms MUSE SYSTEM QTC Calculated 484 ms MUSE SYSTEM (Bezet) Calculated P [place] 36 degrees MUSE SYSTEM Calculated R [place] -19 degrees MUSE SYSTEM Calculated T [place] 104 degrees MUSE SYSTEM INTERPRETATION Normal sinus rhythm MUSE SYSTEM 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) ST & T wave abnormality, consider lateral ischemia Abnormal ECG When compared with ECG of 05-JUL-2017 20:39, No significant change was found Confirmed by MD Luci, Taurus Braun ([id number]) on 07/06/2017 5:07:33 PM Specimen Anatomical Collection Method Collection Time Receive d Time (Source) Location / / Volume Laterality 07/06/2017 12:00 07/06/2017 5:07 PM EST PM EST Daphne Shahid MD ECG ORDERABLES Performing Organization Address City/State/ZIP Code Phon e Number MUSE SYSTEM ABORH Recheck Status (07/06/2017 12:00 PM EST) [facility] Method Time Signature ABORH Type Completed [facility] LABORATORY Specimen Anatomical Collection Method Collection Time Receive d Time (Source) Location / / Volume Laterality Blood specimen 07/06/2017 12:00 7 (specimen) PM EST 12:24 PM EST Resulting Agency Comment Spec In Lab Daphne Shahid MD BLOOD BANK ORDERABLES Performing Organization Address City/State/ZIP [place] [address] Antibody screen (07/06/2017 12:00 PM EST) [facility] Method Time Signature Ab Screen Negative [facility] LABORATORY Expires at 07/09/2017 [place] ZHAORYAN [id number] on: [facility] Specimen Anatomical Collection Method Collection Time Receive d Time (Source) Location / / Volume Laterality Blood specimen 07/06/2017 12:00 7 (specimen) PM EST 12:24 PM EST Resulting Agency Comment Spec In Lab Daphne Shahid MD BLOOD BANK ORDERABLES Performing Organization Address City/[facility]/ZIP Code Phon e Number [address] ABO/Rh Typing (07/06/2017 12:00 PM EST) P athologist Signature ABORh Type O Pos [facility] Specimen Anatomical Collection Method Collection Time Receive d Time (Source) Location / / Volume Laterality Blood specimen 07/06/2017 12:00 7 (specimen) PM EST 12:24 PM EST Resulting Agency Comment Spec In Lab Daphne Shahid MD BLOOD BANK ORDERABLES Performing Organization Address [facility] [place] [address] Prothrombin Time (07/06/2017 11:24 [...] Shahid MD HEMATOLOGY ORDERABLES Performing Organization Address City/[facility]/[place] [address] (ABNORMAL) APTT (07/06/2017 11:24 [...] Address City/State/ZIP Code Phon e Number [address] POCT Glucose (07/06/2017 11:02 AM EST) athologist Signature POC Glucose 187 65 - 199 [facility] Comment: Supplemental [...] [facility]/ZIP Code Phon e Number [address] POCT Glucose (07/06/2017 10:18 AM EST) P athologist Signature POC Glucose 193 65 - 199 [facility] Comment: Supplemental ranges: [...] [facility]/ZIP Code Phon e Number [address] POCT Glucose (07/06/2017 9:25 AM EST) P athologist Signature POC Glucose 182 65 - 199 [facility] Comment: Supplemental ranges: <140 mg/dL before meals <180 mg/dL all other times of the day Specimen Anatomical Collection Method Collection Time Receive d Time (Source) Location / / Volume Laterality Blood specimen 07/06/2017 9:25 AM 017 9:25 (specimen) EST AM EST Daphne Shahid MD POINT OF CARE TEST ORDERABLE S Performing Organization Address City/State/ZIP [place] [address] (ABNORMAL) Cardiac Enzymes (LEB/CGP) (07/06/2017 8:10 AM EST) athologist Signature Troponin-T 2.26 (H) 0.00 - [place] [facility] 0.00 ng/mL [...] additional sample may be indicated. Reference: Third Silva Definition of Myocardial Infarction. Journal of the [place] [employer] 2012;60:1581-98 CK, Total 124 0 - 200 unit/L [facility] Specimen Anatomical Collection Method Collection Time Receive d Time (Source) Location / / Volume Laterality Blood specimen 07/06/2017 8:10 AM 017 8:23 (specimen) EST AM EST Resulting Agency Comment Spec In Lab Daphne Shahid MD CHEMISTRY ORDERABLES Performing Organization Address City/State/ZIP Code Phon e Number [address] Magnesium (07/06/2017 8:10 AM EST) athologist Signature Magnesium 0.84 0.69 - 1.07 [facility] mmol/L [facility] Specimen Anatomical Collection Method Collection Time Receive d Time (Source) Location / / Volume Laterality Blood specimen 07/06/2017 8:10 AM 017 8:21 (specimen) EST AM EST Resulting Agency Comment Spec In Lab Daphne Shahid MD CHEMISTRY ORDERABLES Performing Organization Address City/[facility] Phon e Number [address] (ABNORMAL) Basic Metabolic Panel (non-fasting) (07/06/2017 8:10 AM EST) athologist Signature Glucose Lvl 199 65 - 199 [facility] mg/dL [facility] Comment: Diabetes: >=200 mg/dL plus symp toms BUN 16 10 - 20 mg/dL [facility] LABORATORY Creatinine 1.04 0.80 [...] [facility]ICAL [facility]ENTER LABORATORY Estimated GFR >60 >=60 [facility] Comment: The reported eGFR should be multiplied b y 1.2 for patients. The MDRD is not an appropriate measure o f renal function for patients with body mass extremes or in patients with acute kidney failure. http://OpenZine/DHnkdep http://[employer]Zine/DHMCnkf Specimen Anatomical Collection Method Collection Time Receive d Time (Source) Location / / Volume Laterality Blood specimen 07/06/2017 8:10 AM 017 8:21 (specimen) EST AM EST Resulting Agency Comment Spec In Lab Daphne Shahid MD CHEMISTRY ORDERABLES Performing Organization Address City/[facility]/ZIP Code Phon e Number [address] POCT Glucose (07/06/2017 7:34 AM EST) P athologist Signature POC Glucose 198 65 - 199 [facility] Comment: Supplemental [...] [facility]/ZIP Code Phon e Number [address] POCT Glucose (07/06/2017 7:03 AM EST) P athologist Signature POC Glucose 181 65 - 199 [facility] mg/dL [facility] Comment: Supplemental ranges: [...] [facility]/ZIP Code Phon e Number [address] XR Chest PA or [...] POC Glucose 172 65 - 199 [facility] mg/dL [facility] Comment: Supplemental ranges: <140 mg/dL before meals <180 mg/dL all other times of the day Specimen Anatomical Collection Method Collection Time Receive d Time (Source) Location / / Volume Laterality Blood specimen 07/06/2017 6:21 AM 017 6:21 (specimen) EST AM EST Daphne Shahid MD POINT OF CARE TEST ORDERABLE S Performing Organization Address City/State/ZIP Code Phon e Number [address] POCT Glucose (07/06/2017 5:08 AM EST) athologist Signature POC Glucose 154 65 - 199 [facility] mg/dL [facility] Comment: Supplemental ranges: <140 mg/dL before meals <180 mg/dL all other times of the day Specimen Anatomical Collection Method Collection Time Receive d Time (Source) Location / / Volume Laterality Blood specimen 07/06/2017 5:08 AM 017 5:08 (specimen) EST AM EST Daphne Shahid MD POINT OF CARE TEST ORDERABLE S Performing Organization Address City/State/ZIP Code Phon e Number [address] POCT Glucose (07/06/2017 4:05 AM EST) athologist Signature POC Glucose 142 65 - 199 [facility] mg/dL [facility] Comment: Supplemental ranges: <140 mg/dL before meals <180 mg/dL all other times of the day Specimen Anatomical Collection Method Collection Time Receive d Time (Source) Location / / Volume Laterality Blood specimen 07/06/2017 4:05 AM 017 4:05 (specimen) EST AM EST Daphne Shahid MD POINT OF CARE TEST ORDERABLE S Performing Organization Address City/State/ZIP Code Phon e Number [address] POCT Glucose (07/06/2017 3:00 AM EST) P athologist Signature POC Glucose 116 65 - 199 [facility] mg/dL [facility] Comment: Supplemental ranges: [...] [facility]/[place] [address] Potassium (07/06/2017 2:20 AM EST) athologist Signature Potassium 3.9 3.5 - 5.0 [facility] mmol/L [facility] Comment: Please note: [...] Shahid MD CHEMISTRY ORDERABLES Performing Organization Address City/[facility]/ZIP Code Phon e Number [address] Differential, Automated (07/06/2017 2:20 AM EST) athologist Signature Neutrophils % 72.9 % [facility] Neutr Abs (ANC) 5.53 1.70 - [facility] 6.10 [facility] x10(3)/[facility] LABORATORY Lymphocytes % 16.4 % [facility] Lymphocytes Abs 1.2 0.9 - 3.2 [facility] x10(3)/[facility] LABORATORY Monocytes % 9.4 % [facility] Monocyte Abs 0.7 0.3 - 0.9 [facility] x10(3)/[facility] LABORATORY Eosinophils % 0.5 % [facility] Eosinophils Abs 0.0 0.0 - 0.4 [facility] x10(3)/[facility] LABORATORY Basophils % 0.4 % [facility] Basophils Abs 0.0 0.0 - 0.1 [facility] x10(3)/[facility] LABORATORY Immature Gran % 0.40 % [...] Melisa Gran Abs 0.03 0.00 - 0.04 x10(3)/[facility] LABORATORY Specimen Anatomical Collection Method Collection Time Receive d Time (Source) Location / / Volume Laterality Blood specimen 07/06/2017 2:20 AM 017 2:33 (specimen) EST AM EST Resulting Agency Comment Spec In Lab Daphne Shahid MD HEMATOLOGY ORDERABLES Performing Organization Address City/State/ZIP [place] [address] (ABNORMAL) Hemogram (07/06/2017 2:20 AM EST) Analysis Performed At Patho logist Time Signature WBC 7.6 4.0 - 9.5 [facility] x10(3)/[facility] LABORATORY RBC 4.52 (L) 4.58 - [facility] 5.54 [facility] x10(6)/[facility] LABORATORY Hemoglobin 13.4 (L) 13.7 - [facility] 16.5 gm/dL [facility] Hematocrit 39.7 (L) 40.5 - [facility] RYAN 48.5 % [facility] MCV 87.8 82.9 - [facility] 93.1 [facility] LABORATORY MCH 29.6 27.5 - [facility] RYAN 32.1 pg [facility] MCHC 33.8 32.0 - [facility] 35.7 gm/dL [facility] Platelets 189 145 - 357 [facility] x10(3)/[facility] LABORATORY RDWSD 45.6 (H) 36.0 - [facility] 45.0 [facility] LABORATORY RDWCV 14.3 (H) 11.4 - [facility] 13.8 % [facility] MPV 9.1 7.6 - 12.9 [facility] fL [facility] nRBC % Auto 0.0 % [facility] nRBC Abs Auto 0.000 0.000 - [place] 0.000 [facility] x10(3)/[facility] LABORATORY Specimen Anatomical Collection Method Collection Time Receive d Time (Source) Location / / Volume Laterality Blood specimen 07/06/2017 2:20 AM 017 2:33 (specimen) EST AM EST Resulting Agency Comment Spec In Lab Daphne Shahid MD HEMATOLOGY ORDERABLES Performing Organization Address City/[facility]/ZIP Code Phon e Number [address] (ABNORMAL) APTT (07/06/2017 2:20 [...] Shahid MD HEMATOLOGY ORDERABLES Performing Organization Address City/[facility]/[place] [address] POCT Glucose (07/06/2017 2:20 AM EST) P athologist Signature POC Glucose 115 65 - 199 [facility] mg/dL [facility] Comment: Supplemental ranges: <140 mg/dL before meals <180 mg/dL all other times of the day Specimen Anatomical Collection Method Collection Time Receive d Time (Source) Location / / Volume Laterality Blood specimen 07/06/2017 2:20 AM 017 2:20 (specimen) EST AM EST Daphne Shahid MD POINT OF CARE TEST ORDERABLE S Performing Organization Address City/State/[place] [address] (ABNORMAL) Cardiac Enzymes (LEB/CGP) (07/06/2017 2:20 AM EST) P athologist Signature Troponin-T 2.13 (H) 0.00 - [facility] 0.[facility] ng/mL [facility] Comment: The [...] additional sample may be indicated. Reference: Third Silva Definition of Myocardial Infarction. Journal of the [place] [employer] 2012;60:1581-98 CK, Total 129 0 - 200 unit/L [facility] Specimen Anatomical Collection Method Collection Time Receive d Time (Source) Location / / Volume Laterality Blood specimen 07/06/2017 2:20 AM 017 2:33 (specimen) EST AM EST Resulting Agency Comment Spec In Lab Daphne Shahid MD CHEMISTRY ORDERABLES Performing Organization Address City/State/[place] [address] (ABNORMAL) Hemoglobin A1c (07/06/2017 2:20 AM EST) Analysis Performed At Patho logist Time Signature Hemoglobin A1C 6.8 (H) 4.3 - 5.6 [facility] Comment: Reference Range: 4.3 - [...] Est Avg Gluc See note mg/dL [place] [facility] [facility] LABORATORY Comment: Estimated Average Glucose not [...] with hemoglobinopathies. Additional resources are available on [facility] ADA website. Macario HAMMOND, Ruthann J, Deysi R, et al. ??Tr anslating the A1C assay into estimated average glucose values. ??Diabetes Care 2008:31(8):7449-2688. Specimen Anatomical Collection Method Collection Time Receive d Time (Source) Location / / Volume Laterality Blood specimen 07/06/2017 2:20 AM 017 2:34 (specimen) EST AM EST Resulting Agency Comment Spec In Lab Daphne Shahid MD CHEMISTRY ORDERABLES Performing Organization Address City/State/ZIP Code [place] [address] (ABNORMAL) Lipid Panel (07/06/2017 2:20 AM EST) [facility] Method Time Signature Chol, Total 150 <=239 [place] mg/dL [facility] LABORATORY Triglycerides 129 <=199 [place] mg/dL [facility] LABORATORY HDL 32 (L) >=40 [place] mg/dL [facility] LABORATORY LDL Cholesterol 92 <=190 [place] mg/dL [facility] LABORATORY Chol/HDL Ratio 4.7 ratio [facility] Lipid See Note [place] Interpretation [facility] LABORATORY Comment: Lipid management should be guided by a p atient? s ASCVD risk, goals and preferences. ACC/AHA Guidelines recommend high intens ity statin if clinical ASCVD or LDL greater than or equal to 190 mg/dL. http://[employer]/FXC-LDS-Mrzuxydvt Adults aged 40-75 with LDL 70-189 mg/dL should have their 10 year ASCVD risk estimated with the ACC/AHA ASCVD risk es timator http://tools.acc.org/KUCGG-Lhpd-Dgkeztzn r/ Statin should be discussed if risk [...] Address City/State/ZIP Code Ph[place] [address] POCT Glucose (07/06/2017 1:09 AM EST) athologist Signature POC Glucose 121 65 - 199 [facility] mg/dL [facility] Comment: Supplemental ranges: <140 mg/dL before meals <180 mg/dL all other times of the day Specimen Anatomical Collection Method Collection Time Receive d Time (Source) Location / / Volume Laterality Blood specimen 07/06/2017 1:09 AM 017 1:09 (specimen) EST AM EST Daphne Shahid MD POINT OF CARE TEST ORDERABLE S Performing Organization Address City/State/[place] [address] POCT Glucose (07/06/2017 12:06 AM EST) athologist Signature POC Glucose 147 65 - 199 [facility] mg/dL [facility] Comment: Supplemental ranges: <140 mg/dL before meals <180 mg/dL all other times of the day Specimen Anatomical Collection Method Collection Time Receive d Time (Source) Location / / Volume Laterality Blood specimen 07/06/2017 12:06 7 (specimen) AM EST 12:06 AM EST Daphne Shahid MD POINT OF CARE TEST ORDERABLE S Performing Organization Address City/State/[place] [address] (ABNORMAL) POCT Glucose (07/05/2017 10:56 PM EST) athologist Signature POC Glucose 200 (H) 65 - 199 [place] [facility] mg/dL [facility] Comment: Supplemental ranges: <140 mg/dL before meals <180 mg/dL all other times of the day Specimen Anatomical Collection Method Collection Time Receive d Time (Source) Location / / Volume Laterality Blood specimen 07/05/2017 10:56 7 (specimen) PM EST 10:56 PM EST Daphne Shahid MD POINT OF CARE TEST ORDERABLE S Performing Organization Address City/State/[place] [address] (ABNORMAL) POCT Glucose (07/05/2017 10:05 PM EST) athologist Signature POC Glucose 225 (H) 65 - 199 [facility]/dL [facility] Comment: Supplemental [...] [facility]/[place] [address] (ABNORMAL) POCT Glucose (07/05/2017 9:02 PM EST) athologist Signature POC Glucose 301 (H) 65 - 199 [facility] mg/dL [facility] Comment: Supplemental [...] [facility]/[place] [address] XR Chest PA or [...] 474 ms MUSE SYSTEM (Bezet) Calculated P [place] 50 degrees MUSE SYSTEM Calculated R [place] -28 degrees MUSE SYSTEM Calculated T [place] 90 degrees MUSE SYSTEM INTERPRETATION Sinus tachycardia [...] (ABNORMAL) Differential, Automated (07/05/2017 8:20 PM EST) [facility] Method Time Signature Neutrophils % 88.4 % [facility] Neutr Abs (ANC) 9.08 (H) 1.70 - [facility] 6.10 [facility] x10(3)/[facility] L LABORATORY Lymphocytes % 7.0 % [facility] Lymphocytes Abs 0.7 (L) 0.9 - 3.2 [facility] x10(3)/[facility] LABORATORY Monocytes % 3.7 % [facility] Monocyte Abs 0.4 0.3 - 0.9 [facility] x10(3)/[facility] LABORATORY Eosinophils % 0.1 % [facility] Eosinophils Abs 0.0 0.0 - 0.4 [facility] x10(3)/[facility] LABORATORY Basophils % 0.2 % [facility] Basophils Abs 0.0 0.0 - 0.1 [facility] x10(3)/[facility] LABORATORY Immature Gran % 0.60 [...] Gran Abs 0.06 (H) 0.00 - 0.04 x10(3)/[facility] LABORATORY Specimen Anatomical Collection Method Collection Time Receive d Time (Source) Location / / Volume Laterality Blood specimen 07/05/2017 8:20 PM 017 8:27 (specimen) EST PM EST Resulting Agency Comment Spec In Lab Daphne Shahid MD HEMATOLOGY ORDERABLES Performing Organization Address City/State/ZIP [place] [address] (ABNORMAL) Hemogram (07/05/2017 8:20 PM EST) Analysis Performed At Patho logist Time Signature WBC 10.3 (H) 4.0 - 9.5 [facility] x10(3)/[facility] LABORATORY RBC 4.64 4.58 - [facility] 5.54 [facility] x10(6)/[facility] LABORATORY Hemoglobin 14.1 13.7 - [facility] 16.5 gm/dL [facility] Hematocrit 40.8 40.5 - [facility] 48.5 % [facility] MCV 87.9 82.9 - [facility] 93.1 [facility] LABORATORY MCH 30.4 27.5 - [facility] 32.1 pg [facility] MCHC 34.6 32.0 - [facility] 35.7 gm/dL [facility] Platelets 204 145 - 357 [facility] x10(3)/[facility] LABORATORY RDWSD 46.1 (H) 36.0 - [facility] 45.0 [facility] LABORATORY RDWCV 14.5 (H) 11.4 - [facility] 13.8 % [facility] MPV 9.7 7.6 - 12.9 [facility] LABORATORY nRBC % Auto 0.0 % [facility] nRBC Abs Auto 0.000 0.000 - [facility] 0.000 [facility] x10(3)/[facility] LABORATORY Specimen Anatomical Collection Method Collection Time Receive d Time (Source) Location / / Volume Laterality Blood specimen 07/05/2017 8:20 PM 017 8:27 (specimen) EST PM EST Resulting Agency Comment Spec In Lab Daphne Shahid MD HEMATOLOGY ORDERABLES Performing Organization Address City/State/ZIP [place] [address] APTT (07/05/2017 8:20 PM [...] Shahid MD HEMATOLOGY ORDERABLES Performing Organization Address City/[facility]/ZIP Code Phon e Number [address] (ABNORMAL) Cardiac Enzymes (LEB/CGP) (07/05/2017 8:20 PM EST) P athologist Signature Troponin-T 2.11 (H) 0.00 - BARBARA RYAN 0.00 ng/mL [facility] Comment: The [...] additional sample may be indicated. Reference: Third Silva Definition of Myocardial Infarction. Journal of the [place] [employer] 2012;60:1581-98 CK, Total 149 0 - 200 unit/L [facility] Specimen Anatomical Collection Method Collection Time Receive d Time (Source) Location / / Volume Laterality Blood specimen 07/05/2017 8:20 PM 017 8:27 (specimen) EST PM EST Resulting Agency Comment Spec In Lab Daphne Shahid MD CHEMISTRY ORDERABLES Performing Organization Address City/[facility]/[place] [address] (ABNORMAL) Magnesium (07/05/2017 8:20 PM EST) athologist Signature Magnesium 0.68 (L) 0.69 - 1.07 [facility] mmol/L [facility] Specimen Anatomical Collection Method Collection Time Receive d Time (Source) Location / / Volume Laterality Blood specimen 07/05/2017 8:20 PM 017 8:27 (specimen) EST PM EST Resulting Agency Comment Spec In Lab Daphne Shahid MD CHEMISTRY ORDERABLES Performing Organization Address City/State/ZIP [place] [address] (ABNORMAL) Basic Metabolic Panel (non-fasting) (07/05/2017 8:20 PM EST) athologist Signature Glucose Lvl 321 (H) 65 - 199 [facility] mg/dL [facility] Comment: Diabetes: >=200 [...] [facility] LABORATORY Estimated GFR >60 >=60 [facility] Comment: The reported eGFR should be multiplied b y 1.2 for patients. The MDRD is not an appropriate measure o f renal function for patients with body mass extremes or in patients with acute kidney failure. http://[employer]/DHnkdep http://[employer]/DHMCnkf Specimen Anatomical Collection Method Collection Time Receive d Time (Source) Location / / Volume Laterality Blood specimen 07/05/2017 8:20 PM 017 8:27 (specimen) EST PM EST Resulting Agency Comment Spec In Lab Daphne Shahid MD CHEMISTRY ORDERABLES Performing Organization Address City/State/[place] [address] (ABNORMAL) POCT Glucose (07/05/2017 7:32 PM EST) P athologist Signature POC Glucose 296 (H) 65 - 199 [facility] mg/dL [facility] Comment: Supplemental ranges: <140 mg/dL before meals <180 mg/dL all other times of the day Specimen Anatomical Collection Method Collection Time Receive d Time (Source) Location / / Volume Laterality Blood specimen 07/05/2017 7:32 PM 017 7:32 (specimen) EST PM EST Daphne Shahid MD POINT OF CARE TEST ORDERABLE S Performing Organization Address City/State/[place] [address] CARDIAC CATHETERIZATION (07/05/2017 6:47 PM EST) Specimen (Source) Anatomical Location Collection Method / Collectio n Time Received Time / Laterality Volume Narrative CARDIOMAC SYSTEM - 07/05/2017 7:27 PM ES T ?[facility] ? Cardiac Cathete rization/Intervention Report ? Patient Name: Natalya, Gregory ? Procedure Date: 07/05/2017 ? A #: [id number] ? Primary Physician: Clarisa, Jet T ? Case #: [id number] ? File Name: [id number] ? Catheterization Order Number: [id number] ? [facility] ? Final Report [place], [place] ? Patient Name: ? Gregory Natalya ?ID#: [id number] ? : ?1945 ? Procedure Date: ? [...] presented with: non -STEMI (w/i 7 days). Hubbard ?[employer] angina c lass was IV. 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 ? Jet Mckenna M.D. ? Electronically Signed by: Jet bunch M.D. ? Report Finalized: 07/05/2017 ??19:23 ? Report Last Ammended: 10/26/2017 ??10:29 ? Procedure Note Jet Mckenna MD - 10/26/2017Formatt ing of this note might be different from the original. [facility] Cardiac Catheterization/Intervention Re port Patient Name: Gregory Hoang Procedure Date: 07/05/2017 A #: [id number] Primary Physician: Jet Mckenna Case #: [id number] File Name: [id number] Catheterization Order Number: [id number] [facility] Final Report [place], [place] Patient Name: Gregory Hoang ID#: [id number] : 1945 Procedure Date: July 05, [...] presented with: non-STEMI ( w/i 7 days). [employer] angina class was IV. No [...] site angiograph y and IABP insertion in optical laboratory manager. Jet Mckenna M.D. Electronically Signed [...] Mccollum ? (Age): 1945(72y) Med Rec#: ? [id number] ?Sex: ?M ? Site Loc: ? [facility] ?Ht / Wt: ??173(cm)/86(kg) Pt. Loc: ?[facility] ? BSA: ?2 Study Date: ?? 07/05/2017 ?Pt. Type: Inpatient Tape: ? Referring: Daphne Shahid ([id number]) Referring: MANDA ALCANTAR Reading: Blade Preston ([id number]) Liability Analyst: Dayami Paula BA, RUST Diagnosis: *ICD-10-PCS Non-ST [...] E-wave Vmax ?0.8 ?m/sec ? MV deceleration icrp095 ?msec ? MV A-wave Vmax ?0.8 ?m/sec [...] ? Mid-Inferior ?Akinetic ? Mid-Inferoseptal ?Hypokinetic ? [place]-Septal ? Akinetic ? [place]-Anterior ? Hypokinetic ? [place]-Lateral ?Hypokinetic ? [place]-Inferior ? Akinetic ? [place]-Tip ?Akinetic ? This report has been electronically sign ed by: _ Blade Preston MD ? 07/06/2017 08 :53:15 Images reviewed and interpretation [facility] Cardiac Ultrasound Laboratory Procedure Note Blade Preston MD - 07/06/2017Formatt ing of this note might be different from the original. Procedure: Transthoracic Echocardiogram Patient: NATALYA MCBRIDE(Age): [birth year]72y) Med Rec#: [id number] Sex: M Site Loc: [facility] Ht / Wt: 173(cm)/86(kg) Pt. Loc: [facility] BSA: 2 Study Date: 07/05/2017 Pt. Type: Inpatie nt Tape: Referring: Daphne Shahid ([id number]) Referring: MANDA ALCANTAR Reading: Blade Preston ([id number]) Liability Analyst: Dayami Paula BA, RUST Diagnosis: *ICD-10-PCS Non-ST [...] MV E-wave Vmax 0.8 m/sec MV deceleration [id number] msec MV A-wave Vmax 0.8 m/sec MV [...] Hypokinetic Mid-Posterolateral Hypokinetic Mid-Inferior Akinetic Mid-Inferoseptal Hypokinetic [place]-Septal Akinetic [place]-Anterior Hypokinetic [place]-Lateral Hypokinetic [place]-Inferior Akinetic [place]-Tip Akinetic This report has been electronically sign ed by: _ Blade Preston MD 07/06/2017 08:53:15 Images reviewed and interpretation verif ied [facility] Cardiac Ultrasound Laboratory Daphne Shahid MD ECHO ORDERABLES Performing Organization Address City/State/ZIP Code Phon e Number [facility] Differential, Automated (07/05/2017 4:55 PM EST) P athologist Signature Neutrophils % 77.0 % [facility] Neutr Abs (ANC) 5.26 1.70 - [facility] 6.10 [facility] x10(3)/[facility] LABORATORY Lymphocytes % 13.3 % [facility] Lymphocytes Abs 0.9 0.9 - 3.2 [facility] x10(3)/[facility] LABORATORY Monocytes % 8.2 % [facility] Monocyte Abs 0.6 0.3 - 0.9 [facility] x10(3)/[facility] LABORATORY Eosinophils % 0.7 % [facility] Eosinophils Abs 0.0 0.0 - 0.4 [facility] x10(3)/[facility] LABORATORY Basophils % 0.4 % [facility] Basophils Abs 0.0 0.0 - 0.1 [facility] x10(3)/[facility] LABORATORY Immature Gran % 0.40 % [...] Melisa Gran Abs 0.03 0.00 - 0.04 x10(3)/[facility] LABORATORY Specimen Anatomical Collection Method Collection Time Receive d Time (Source) Location / / Volume Laterality Blood specimen 07/05/2017 4:55 PM 017 5:24 (specimen) EST PM EST Resulting Agency Comment Spec In Lab Daphne Shahid MD HEMATOLOGY ORDERABLES Performing Organization Address City/State/ZIP Code Phon e Number [place] [phone] HOS[address] LAB[address]ORY Drive (ABNORMAL) Hemogram (07/05/2017 4:55 PM EST) Analysis Performed At Patho logist Time Signature WBC 6.8 4.0 - 9.5 [facility] x10(3)/[facility] LABORATORY RBC 4.67 4.58 - [facility] 5.54 [facility] x10(6)/[facility] LABORATORY Hemoglobin 14.0 13.7 - [facility] 16.5 gm/dL [facility] Hematocrit 41.0 40.5 - [facility] 48.5 % [facility] MCV 87.8 82.9 - [facility] 93.1 fL [facility] MCH 30.0 27.5 - [facility] 32.1 pg [facility] MCHC 34.1 32.0 - [facility] 35.7 gm/dL [facility] Platelets 197 145 - 357 [facility] x10(3)/[facility] LABORATORY RDWSD 46.4 (H) 36.0 - [facility] RYAN 45.0 [facility] LABORATORY RDWCV 14.5 (H) 11.4 - [facility] 13.8 % [facility] MPV 9.7 7.6 - 12.9 [facility] LABORATORY nRBC % Auto 0.0 % [facility] nRBC Abs Auto 0.000 0.000 - BARBARA ZHAORYAN 0.000 [facility] x10(3)/[facility] LABORATORY Specimen Anatomical Collection Method Collection Time Receive d Time (Source) Location / / Volume Laterality Blood specimen 07/05/2017 4:55 PM 017 5:24 (specimen) EST PM EST Resulting Agency Comment Spec In Lab Daphne Shahid MD HEMATOLOGY ORDERABLES Performing Organization Address City/State/ZIP Code Phon e Number [place] [phone]OS[address] LAB[address]ORY Drive (ABNORMAL) Cardiac Enzymes (LEB/CGP) [...] additional sample may be indicated. Reference: Third Silva Definition of Myocardial Infarction. Journal of the [place] College [employer]iology 2012;60:1581-98 CK, Total 191 0 - 200 unit/L [facility] Specimen Anatomical Collection Method Collection Time Receive d Time (Source) Location / / Volume Laterality Blood specimen 07/05/2017 4:55 PM 017 5:56 (specimen) EST PM EST Resulting Agency Comment Spec In Lab Daphne Shahid MD CHEMISTRY ORDERABLES Performing Organization Address City/[facility]/ZIP Code Phon e Number [address] (ABNORMAL) pro-Brain Natriuretic Peptide (07/05/2017 4:55 PM EST) athologist Signature ProBNP 1,598 (H) <=125 [facility] pg/mL [facility] Specimen Anatomical Collection Method Collection Time Receive d Time (Source) Location / / Volume Laterality Blood specimen 07/05/2017 4:55 PM 017 5:24 (specimen) EST PM EST Resulting Agency Comment Spec In Lab Daphne Shahid MD CHEMISTRY ORDERABLES Performing Organization Address City/[facility]/[place] [address] Magnesium (07/05/2017 4:55 PM EST) athologist Signature Magnesium 0.78 0.69 - 1.07 [facility] mmol/L [facility] Specimen Anatomical Collection Method Collection Time Receive d Time (Source) Location / / Volume Laterality Blood specimen 07/05/2017 4:55 PM 017 5:24 (specimen) EST PM EST Resulting Agency Comment Spec In Lab Daphne Shahid MD CHEMISTRY ORDERABLES Performing Organization Address City/[facility]/[place] [address] (ABNORMAL) Basic Metabolic Panel (non-fasting) (07/05/2017 4:55 PM EST) P athologist Signature Glucose Lvl 230 (H) 65 - 199 [facility] mg/dL [facility] Comment: Diabetes: >=200 mg/dL plus symp toms BUN 19 10 - 20 mg/dL [facility] LABORATORY Creatinine 1.04 0.80 [...] MEDICAL CENTER LABORATORY Estimated GFR >60 >=60 [facility] Comment: The reported eGFR should be multiplied b y 1.2 for patients. The MDRD is not an appropriate measure o f renal function for patients with body mass extremes or in patients with acute kidney failure. http://[employer]/DHnkdep http://[employer]/DHMCnkf Specimen Anatomical Collection Method Collection Time Receive d Time (Source) Location / / Volume Laterality Blood specimen 07/05/2017 4:55 PM 017 5:24 (specimen) EST PM EST Resulting Agency Comment Spec In Lab Dahpne Shahid MD CHEMISTRY ORDERABLES Performing Organization Address City/State/ZIP [place] [address] (ABNORMAL) APTT (07/05/2017 4:55 [...] Shahid MD HEMATOLOGY ORDERABLES Performing Organization Address City/[facility]/ZIP Code Phon e Number [address] (ABNORMAL) POCT Glucose (07/05/2017 4:53 PM EST) P athologist Signature POC Glucose 208 (H) 65 - 199 [facility] mg/dL [facility] Comment: Supplemental ranges: [...] [facility]/[place] [address] EKG 12 Lead (07/05/2017 4:32 PM EST) Component Value Ref Range Test Analysis Performed Pathologis t Method Time At Signature Ventricular rate 97 BPM MUSE SYSTEM Atrial Rate 97 BPM MUSE SYSTEM P-R Interval 148 ms MUSE SYSTEM QRS Duration 96 ms MUSE SYSTEM Q-T Interval 364 ms MUSE SYSTEM QTC Calculated 462 ms MUSE SYSTEM (Bezet) Calculated P [place] 48 degrees MUSE SYSTEM Calculated R [place] -33 degrees MUSE SYSTEM Calculated T [place] 98 degrees MUSE SYSTEM INTERPRETATION Normal sinus [...] ECG ORDERABLES Performing Organization Address City/State/ZIP Code [facility] e Number MUSE SYSTEM documented in this [...] post-op day 1 in the AM Give [place] if unable to take PO, Routine Given [...] 17 g, Oral, DAILY, First dose on 07/11/17 at 1800, Until Discontinued, Routine Given 07/11/2017 6:28 PM EST 17 g potassium chloride (K-DUR/KLOR-CON) extended Given 9:22 AM EST 20 mEq release tablet 20 mEq 20 mEq, Oral, DAILY, First dose on 07/12/17 at 1015, Until Discontinued, Routine Given 07/13/2017 [...] post-op day 1 in the AM Give [place] if unable to take PO, Routine atorvastatin [...] Rangel, VAMSI)0901 (New Bag - Provider: Em Jones RN)0931 (Stopped - Provider: Em Jones RN)1738 (New Bag - Provider: Em Jones RN) 0143 (New Bag - Provider: Denice Jacobson, RN)0213 (Stopped - Provider: Denice Jacobson RN)0932 [...] met) 0000 (Not Given - Provider: Denice contrears RN - Reason: Order parameters not met [...] parameters not met)1307 (Given - Provider: Em Jnoes, RN)1600 (Not Given - Provider: Em Jones [...] More Luther RN)1259 (Given - Provider: More Luther, VAMSI)1757 (Given [...] Rangel, VAMSI) 0615 (Given - Provider: Ale Ranegl , VAMSI)131 (Given - Provider: Em Jones RN) 12.5 [...] Reason: Contraindicated - Comment: IV meds running) 06 (Given - Provider: Ale Rangel RN)1330 (Not Given - Provider: Em Jones RN - Reason: Contraindicated)2003 (Given - Provider: Denice Jacobson, RN) 0532 (Given - Provider: Denice Jacobson, VAMSI)1330 (Not Given - Provider: Myran Young, VAMSI - Reason: Patient/family refused) 5 [...] RN) 1400 (Dose confirmed - Provider: Myrna Young, VAMSI - Comment: on DC) Oral, EVERY 24 [...] Luther, RN)1200 (Rate/Dose Change - Provider: More Luther RN)195 (Rate/Dose Change - Provider: Elba Valverde, RN - Comment: dose running at 0.5 at beginning of shift) 0721 (Stopped - Provider: Portillo Jones, VAMSI - Comment: iv ifiltrated =, see vasculkar [...] post-op day 1 in the AM Give [place] if unable to take PO
Routine Group [...]
Routine documented in this encounter Care Teams Litigation Docket Manager Relationship Specialty Start Date End Date Lovely Vicente MD PCP - General 04/16/[address] [place] [address] documented as of this encounter
--- OUTSIDE RECORDS SUMMARY | 2022-03-11 11:34 | XMS_ITS | Encounter Summary ---
:1945 [place] [address] Care Team Providers Name Role Phone Lovely Vicente MD Primary Care Provider Reason for Visit Reason Onset Date Comments Other 12/09/2016 RESULTS Encounter Details Date Type Department Care Team Description 12/09/2016 Telephone Dermatology at [facility] Halima Cadet MD Other (RESULTS) [address] [facility] [place] [address] 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 I advised her Don's pathology [...] back. She can be reached back at [phone] documented in this encounter Plan of Treatment Upcoming Encounters Date Type Specialty Care Team Description 03/26/2022 Office Visit Cardiology Vitaliy Nobles MD [facility] [address] [place], [place] [address] (Wo rk) 05/28/2022 Appointment Cardiology Zulma Dolan MD [facility] [place], [place] [address] (Wo rk) 05/28/2022 Laboratory Appointment Lab 05/28/2022 Office Visit Cardiology Zulma Dolan MD [facility] [place] [address] Liz Poole PA [facility] [place] [address] 06/10/2022 Office Visit Dermatology Laura Scherer MD [facility] [address] [place], [place] [address] (Wo rk) documented as of this encounter Visit Diagnoses Not on filedocumented in this encounter Care Teams Pr Specialist Relationship Specialty Start Date End Date Lovely Vicente MD PCP - General 04/16/[address] [place] [address] documented as of this encounter
--- OUTSIDE RECORDS SUMMARY | 2022-03-11 11:34 | XMS_ITS | Encounter Summary ---
:1945 [place] [address] Care Team Providers Name Role Phone Lovely Vicente MD Primary Care Provider Reason for Visit Auth/Cert Specialty Diagnoses / Procedures Referred By Contact Refer red To Contact Diagnoses STEMI (ST elevation myocardial infarction) NSTEMI STEMI Procedures CARDIAC CATHETERIZATION NAYE IPI Referral ID Status Reason Start Date Expiration Date Visits Requ ested Visits Authorized [id number] 1 1 Encounter Details Date Type Department Care Team Description 07/05/2017 Surgery Shoe Stamper Jet Guan, CARDIAC CATHETERIZATION [facility] [place] [address] CARDIOLOGY DEPT. [phone] [place], [place] [address] (Wo rk) Social History [...] this encounter Discharge Summaries Martha Teague S, HEALTH EDUCATOR - 07/14/2017 9:38 AM EST Inpatient - Discharge Summary Patient Name: Gregory Hoang Patient Age: 72 y.o. Birthdate: 1945 Language: Burundian Race: White Ethnicity: Not nor Admit Date: [...] , @ 1:20p Patient to follow-up with Photo Checker And Assembler/heart failure team in one week. An appointment will be made for you. You may call [phone] Patient to follow-up with Cardiac Surgery, Dr. Yuan Webber, in ~ 4 weeks with CXR, EKG. Inpatient Provider Contact Information: [facility] Section of Cardiac Surgery [facility] [address] FAX [phone] Discharge Diagnoses (Hospital Problems) Primary Diagnoses: CAD [...] SETUP performed by Manny Mcknight MD at [facility] OR ??? PRO CABG, ARTERIAL, SINGLE N/A 07/07/2017 @CABG, USING ARTERIAL GRAFT;SINGLE ARTERIAL GRAFT (WRVU 33.75) performed by Yuan Webber MD at [facility] OR ??? PRO CABG, ARTERY-VEIN, TWO N/A 07/07/2017 @CABG, TWO VENOUS GRAFTS & ARTERIAL GRAFT (WRVU 7.93) performed by Yuan Webber MD at [facility] OR ??? PRO COLONOSCOPY, REMV LESN, SNARE 01/16/2014 COLONOSCOPY, POLYPECTOMY, REMOVAL LESION BY SNARE performed by Nohemi Jaimes MD at [facility] ENDOSCOPY ??? PRO ENDOSCOPY W/VIDEO-ASST VEIN HARVEST, CABG Right 07/07/2017 ENDOSCOPIC HARVEST VEIN(S) FOR CABG (WRVU 0.31) performed by Yuan Webber MD at [facility] OR ??? PRO THYROIDECTOMY 03/28/2013 THYROIDECTOMY, TOTAL OR COMPLETE performed by Manny Mcknight MD at [facility] OR Prior To Admission Medications Prescriptions Prior to Admission Medication Sig Dispense Refill Last Dose ??? levothyroxine (SYNTHROID) 175 mcg Tablet Take 1 tablet by mouth daily. 90 tablet 3 07/05/2017 [id number] ??? ascorbic acid, vitamin C, (VITAMIN C) [...] hospital and ruled infor non-ST segment elevation AK. This almost certainly represents the residual of [...] course, he was taken emergently to the pathology lab technician for an ongoing STEMI. An [...] not take or discontinue any prescription or bndm-fjg-tjayqwa medications without asking your doctor or pharmacist [...] to have your insulin doses adjusted. [facility] Endocrine clinic office Discharge [...] Yuan Webber and/or the Cardiac Surgery Physician Meteorologist Liaison Team may be reached at . Weight: [...] Dr. Yuan Webber. You may use a Gholson Track or treadmill but avoid any pulling [...] with the surgeon. Do not ride motorcycles, [place] tractors or horses. Avoid the use of [...] should resume a low fat, low cholesterol, [place] Heart Association Diet/Diabetic diet. Driving: No driving [...] , @ 1:20p Patient to follow-up with Photo Checker And Assembler/heart failure team in one week. Appointment will be made for you. You may call [phone] Patient to follow-up with Cardiac Surgery, Dr. Yuan Webber, in ~ 4 weeks with CXR, EKG. Cardiac Rehabilitation: Gregory Hoang was seen today regarding participation in the outpatient Phase 2 Cardiac Rehabilitation at [facility]. The patient agrees to a referral to this program. The referral will be sent at discharge and the patient should be contacted by the Program within 1- 2 weeks from discharge. ?? Future Appointments and Orders Future Appointments Provider Department Dept Phone 09/07/2017 3:00 PM LAB, THREE L Lab 3L [facility] [phone] 09/07/2017 4:00 PM Luz Prescott MD Endocrinology at [place] [phone] Future Orders Complete By Expires EKG 12 Lead [EKG1 Custom] 08/14/2017 02/13/2018 Process Instructions: Scheduling Instructions: Questions: Which DH location will this be performed?: [place] Is a rhythm strip needed?: No If EKG Reason is Pre-op Evaluation, indicate diagnosis for surgery.: XR Chest PA & Lateral (Generic) [23248 [id number] Custom] 08/14/2017 02/13/2018 Process Instructions: Scheduling Instructions: Questions: Where will study be performed?: [facility] Portable exam?: Reason for exam and clinical history: CABG x 3 Other pertinent information: Stat read required?: Date of injury if applicable: Requested Time: Referral to Cardiac Rehab [MCJ809 Custom] As directed Process Instructions: If no progress note charted, please enter Clinical details in comments. Scheduling Instructions: Questions: My question or request is: s/p CABG. Cardiac rehab at [facility] Referral to Home Health - at DISCHARGE [WLH6234 CPT(R)] As directed Process Instructions: Scheduling Instructions: Comments: DOCUMENTATION FOR VNA SERVICES (INCLUDING THOSE PATIENTS WITH MEDICARE COVERAGE REQUIRING HOME VNA SERVICES AND/OR HOSPICE SERVICES) PATIENT'S LOCATION: Gregory Hoang [address] [place] [address] [place] [address] (home) Telephone Information: Branch Sales And Service Representative's Name: self In discussion with the attending physician, it is certified that this patient is under their care and that they, or a Nurse Practitioner, or Physician Meteorologist Liaison who is working directly with them, had [...] [facility] ([facility] [place] [facility]-is in [place], [place] PHONE: [phone] FAX: [phone] RN orders: Cardiopulmonary assessment, incisional assessment, assess vital signs, assessment of rehab progress, medication management and effectiveness, home safety evaluation. Please draw INR if indicated and send result to:Dr Vicente [phone] PT ORDERS: Continue rehab for endurance, gait stability and strength with mobility and transfers. Home safety evaluation. Home exercise program if appropriate. Start of Care Date:24-48 hours after discharge SPECIAL INSTRUCTIONS: For any follow up questions, needs, or issues please call the Cardiac Surgery Office at [phone] FOR MEDICARE ONLY: (please delete this section [...] OR AFTER 07/17/2017 Signed: Martha Teague APRN [facility] Section of Cardiac Surgery [facility] [address] FAX [phone] Date: 07/14/2017 CC: MD Ivania Cr Betsy, PA [address] [place] [phone] documented in this encounter Discharge Instructions Discharge [...] to have your insulin doses adjusted. [facility] Endocrine clinic office Patient [...] not take or discontinue any prescription or wnad-fis-xfdlwiz medications without asking your doctor or pharmacist [...] to have your insulin doses adjusted. [facility] Endocrine clinic office ? [...] Yuan Webber and/or the Cardiac Surgery Physician Meteorologist Liaison Team may be reached at . ?? [...] Dr. Yuan Webber. You may use a Gholson Track or treadmill but avoid any pulling [...] with the surgeon. Do not ride motorcycles, [employer] tractors or horses. Avoid the use of [...] should resume a low fat, low cholesterol, [place] Heart Association Diet/Diabetic diet. ?? Driving: No [...] @ 1:20p ?? Patient to follow-up with Photo Checker And Assembler/heart failure team in one week. An appointment has been made for you, you can call [phone] ?? Patient to follow-up with Cardiac Surgery, Dr. Yuan Webber, in ~ 4 weeks with CXR, EKG. ? Cardiac Rehabilitation: Gregory Hoang??was seen today regarding participation in the outpatient Phase 2 Cardiac Rehabilitation at [facility]. ?? The patient agrees to a referral to this program.? The referral will be sent at discharge and the patient should be contacted by the Program within 1- 2 weeks from discharge. ? Future Appointments and Orders Future Appointments Provider Department Dept Phone ?? 09/07/2017 3:00 PM LAB, THREE L Lab 3L [facility] [phone] ?? 09/07/2017 4:00 PM Luz Prescott MD Endocrinology at [place] [phone] Future Orders Complete By Expires ?? EKG 12 Lead [EKG1 Custom] 08/14/2017 02/13/2018 ?? Process Instructions: ? Scheduling Instructions: ? Questions: ? Which location will this be performed?: [place] ?? Is a rhythm strip needed?: No ?? If EKG Reason is Pre-op Evaluation, indicate diagnosis for surgery.: ?? XR Chest PA & Lateral (Generic) [[id number] Custom] 08/14/2017 02/13/2018 ?? Process Instructions: ? Scheduling Instructions: ? Questions: ? Where will study be performed?: [facility] ?? Portable exam?: ?? Reason for exam and clinical history: CABG x 3 ?? Other pertinent information: ?? Stat read required?: ?? Date of injury if applicable: ?? Requested Time: ?? Referral to Cardiac Rehab [EUH169 Custom] As directed ? Process Instructions: ?? If no progress note charted, please enter Clinical details in comments. ?? Scheduling Instructions: ? Questions: ? My question or request is: s/p CABG. Cardiac rehab at [facility] ? Arrangements for VNA/home care: As [...] RN - 07/14/2017 2:34 PM EST The patient/in home sales representative has been provided a list of Home Health Agencies/DME vendors which serve their preferred geographic area. A letter describing our affiliations was reviewed with them and theywere educated about their right to choose where referrals are placed. Patient requests referral to [facility]. PHONE: [phone] FAX: [phone] Expected date of discharge: 07/14 Referral routed to the Crushing Foreman for matching with agency/vendor and to [...] to have your insulin doses adjusted. [facility] Endocrine clinic office Kathie Carrera APRN [facility] Endocrinology Diabetes Management Pager [phone] minutes of this 35 minute visit was spent with the patient in counseling on diabetes and treatment plan, reviewing all glucose and insulin data as well as relevant laboratory results with the patient, and coordination of care on the inpatient unit including nursing and primary team. Zulma Andres RN - 07/14/2017 10:30 AM EST The patient/in home sales representative has been provided a list of Home Health Agencies/DME vendors which serve their preferred geographic area. A letter describing our affiliations was reviewed with them and theywere educated about their right to choose where referrals are placed. Patient requests referral to : [facility] ([facility] [place] [facility]-is in [place]) PHONE: [phone] FAX: [phone]. Expected date of discharge: 07/14/17 Referral routed to the Crushing Foreman for matching with agency/vendor and to [...] hours. If BG remains greater than 240, [id number] units (no more than three times) &??call [...] continue to follow Katerin Azul APRN [facility] Endocrinology Diabetes Management Pager [phone] minutes of this 25 minute visit [...] of infiltration/extravasation Discussed plan of care with SECURITY SHIFT MANAGER and RN. Elevate exrtemity and apply [...] measuring tape and identifier in the photo) BIG MACHINE CONSULTANT CARING FOR THIS PATIENT WILL CONTINUE TO [...] measuring tape and identifier in the photo) BIG MACHINE CONSULTANT CARING FOR THIS PATIENT WILL CONTINUE TO [...] regard to both infiltrates addressed by this press writer.All of Mr. Hoang's responses were entirely appropriate. Images of infiltrates attached here. Martha Sharp APRN - 07/13/2017 8:01 AM EST Cardiac Surgery Progress Note: ID: [id number] 72 year old male POD#6 s/p CABGx3 [...] discharge. ?? I have met with the patient/in home sales representative to discuss discharge planning needs. I have provided the [facility], Office of Care Management letter from the Residential Roofer Helper pertaining to rehab referrals. I have also provided a letter describing our affiliations within the [facility] and educated them about their right to choose where referrals are placed. ?? I reviewed the different levels of rehab including SNF, swing, acute and LTAC with the patient/in home sales representative. ?? The patient/in home sales representative has been provided a list of facilities within their preferred geographic area. ?? I have requested that the patient/in home sales representative provide at least three choices for referral. ?? The patient/in home sales representative have requested referrals to: ?? 1. . ?? 2. [facility] ?? 3. More to be entered ?? Expected date of discharge: 07/14 Note routed to Crushing Foreman who will communicate referrals to facilities and [...] hours. If BG remains greater than 240, [id number] units (no more than three times) & call for new basal insulin orders. ??If less than 240 after two hours, give no insulin and resume prior schedule. Will continue to follow Katerin Azul APRN [facility] Endocrinology Diabetes Management Pager [phone] 20 minutes of this 35 minute visit was spent with the patient in counseling on diabetes and treatment plan, reviewing all glucose and insulin data as well as relevant laboratory results with the patient, and coordination of care on the inpatient unit including nursing and primary team. Makayla Stevenson APRN - 07/12/2017 9:52 AM EST Cardiac Surgery Progress Note: ID: [id number] 72 year old male POD#5 s/p CABGx3 [...] 07/11/2017 7:18 PM EST Patient arrived from [facility]. VSS. MSI dressing pulled off with [...] hours. If BG remains greater than 240, [id number] units (no more than three times) & [...] AM EST Cardiac Surgery Progress Note: ID: [id number] 72 year old male POD#4 s/p CABGx3 [...] hours. If BG remains greater than 240, [id number] units (no more than three times) & [...] AM EST Cardiac Surgery Progress Note: ID: [id number] 72 year old male POD#3 s/p CABGx3 [...] Gas) No results found for: PHART, PO2ART, OBI5QLT Assessment/Plan: 72 year old male POD#3 s/p [...] Mami Thao - 07/09/2017 6:29 PM EST Broker Associate Encounter Note Patient Name: Gregory Hoang : [id number] MR#: [id number] Admit Date: 07/05/2017 4:20 PM Hospital Day 4 days Narrative: Patient was sitting in chair, hugging heart pillow, opened his eyes, nodding to come into room Assessment: Patient was sleepy. Intervention and Outcome: Introduced floor installer services and patient reached his hand out in appreciation. Follow-up: Broker Associate remains available for support. Time in Direct [...] AM EST Cardiac Surgery Progress Note: ID: [id number] 72 year old male POD#2 s/p CABGx3 [...] when IABP d/c'ed. Gretchen Carolina, PT Pager [phone] Maddison Cee PA - 07/08/2017 11:27 AM EST Cardiac Surgery Progress Note: ID: [id number] 72 year old male POD#1 s/p CABGx3 [...] in place in R femoral. No hematoma. PHYSICAL THERAPIST CENTER MANAGER- Intact Psych- Anxious Skin- Dry, no [...] interventions and documentation on the unit. DAPHNE SAHHID MD 07/07/2017 Dinorah Main MD - 07/07/2017 [...] intact. IABP in place in R femoral. PHYSICAL THERAPIST CENTER MANAGER- Intact Psych- Anxious Skin- Dry, no [...] note for details. DAPHNE SHAHID MD Pager [phone] Jet Mckenna MD - 07/05/2017 6:48 PM EST Preliminary Cardiac Catheterization Procedure Note: Procedure(s) performed: Left heart cath, IABP insertion Access: Right FEATHER STITCHER-->8fr IABP A time-out was conducted prior to [...] effect. Heparin gtt maintained. Pt transferred to pathology lab technician. documented in this encounter H&P Notes Daphne Shahid MD - 07/05/2017 6:08 PM EST CARDIOLOGY HISTORY & PHYSICAL EXAM Date of Admission: 07/05/2017 ( Hospital Day 0 days ) Responsible Attending: Daphne Shahid MD PCP: Lovely Vicente MD PCP#: [phone] Patient Active Problem List Diagnosis Code ??? [...] load with heparin drip and transferred to [facility]. While there, continued sob, question of chest pain. Stat TTE showing WMA diffusely and EF around 20%. No significant valvular disease. Taken to the pathology lab technician urgently for ongoing STEMI. [facility] Labs: INR 1.0 WBC 5.88 Hgb [...] monitor I/O - s/p lasix in the pathology lab technician, redose to aim net neg [...] Medicine, PGY-2 Cardiology S1, Team Pager # [phone] CARDIOLOGY ATTENDING NOTE Patient: Gregory Hoang Date [...] amenable for PCI. DAPHNE SHAHID MD Pager [phone] documented in this encounter Miscellaneous Notes Consult Note - Daphne Shahid MD - 07/14/2017 11:46 AM EST Heart Failure Service Inpatient Consult Note Gregory Hoang Date of : 1945 Age: 72 y.o. Today's date: 07/14/17 PCP: Lovely Vicente MD TERRITORY ACCOUNT EXECUTIVE: None Place of Service: [facility] Reason for Consult: Dr. Webber has requested [...] SETUP performed by Manny Mcknight MD at [facility] OR ??? PRO CABG, ARTERIAL, SINGLE N/A 07/07/2017 @CABG, USING ARTERIAL GRAFT;SINGLE ARTERIAL GRAFT (WRVU 33.75) performed by Yuan Webber MD at [facility] OR ??? PRO CABG, ARTERY-VEIN, TWO N/A 07/07/2017 @CABG, TWO VENOUS GRAFTS & ARTERIAL GRAFT (WRVU 7.93) performed by Yuan Webber MD at [facility] OR ??? PRO COLONOSCOPY, REMV LESN, SNARE 01/16/2014 COLONOSCOPY, POLYPECTOMY, REMOVAL LESION BY SNARE performed by Nohemi Jaimes MD at [facility] ENDOSCOPY ??? PRO ENDOSCOPY W/VIDEO-ASST VEIN HARVEST, CABG Right 07/07/2017 ENDOSCOPIC HARVEST VEIN(S) FOR CABG (WRVU 0.31) performed by Yuan Webber MD at [facility] OR ??? PRO THYROIDECTOMY 03/28/2013 THYROIDECTOMY, TOTAL OR COMPLETE performed by Manny Mcknight MD at [facility] OR Outpt Meds: Current Outpatient Prescriptions [...] following studies: EKG 07/14/17: NSR 75 bpm, MATERIAL LOADER anterior infarct, LAD CXR 07/11/17: FINDINGS: Sternotomy wires. The patient has been extubated, left chest tube removed, and [place]i catheter removed since the 07/07/2017 study. Atelectasis [...] was discussed with Zehra. Jaden Kelley MD Test Borer Helper Pager [phone] CARDIOLOGY ATTENDING NOTE Patient: Gregory Hoang Date [...] heart failure clinic. DAPHNE SHAHID MD Pager [phone] Plan of Care - Alden Chavarria PTA [...] home with assist Alden Chavarria PTA Pager: [phone] Inpatient Physical Therapy Problem: Acute Rehab Services [...] sit/sit to supine -- Bed Mobility Goal, Granite Level supervision required -- Bed Mobility Goal, [...] - 3 days -- Gait Training Goal, Granite Level supervision required -- Gait Training Goal, [...] days -- Transfer Training Goal, Activity Type sqo-sk-trdtk/gnoxu-dj-mfj;pss-jf-ulfnb/loque-vo-kva;toilet -- Transfer Train Goal, Granite Level supervision required -- Transfer Training Goal, [...] keeping present for 2 days per family. Manufacturing Controller noted of frustrations, house keeping sent to room. Patient offered showered twice, refused. at bedside, frustrated that shower not complete, informed that patient had refused several times. requesting to see DENITRATOR, paged sent to Martha, will come to bedside (middle of consult). not willing to wait, Martha notified that family had gone home. Encouraged to come for morning rounds a t 8am. Diabetes team at bedside - insulin adjustments made. Call cabello in reach. Continue to monitor. PLAN MOVING FORWARD: Ambulate, dressing changes BID, Please change drsg at 4am per Martha DENITRATOR request. INDIVIDUALIZED FALL PREVENTION INTERVENTIONS: Patient-specific fall [...] levels on the lower side, 60ml of [place] juice given after a FS of 80. [...] Conf 07/13/17 0502 Interdisciplinary Rounds/Family Conf Participants caser up;dietitian/nutrition services;nursing;occupational therapy;patient;pharmacy;physical therapy;physician Plan of Care - [...] monitoring required during toileting and ADLs]: RN SECURITY SHIFT MANAGER Surveillance [continuous indirect monitoring]: Barrett Monitor CPG [...] Anticipated Discharge Disposition: home with assist Pager: [phone] CLARISSA SEGAL, PT 07/12/2017 Physical Therapy Rehabilitation [...] to sit/sit to supine Bed Mobility Goal, Granite Level supervision required Bed Mobility Goal, Additional Goal adheres to psternal precautions for transfer Goal: Gait Training Goal Stand Alone Therapy Goal Outcome: Ongoing (Interventions Implemented as Appropriate) 07/12/17 1225 Gait Training Goal Gait Training Goal, Date Established 07/12/17 Gait Training Goal, Time to Achieve 2 - 3 days Gait Training Goal, Granite Level supervision required Gait Training Goal, Assist [...] 3 days Transfer Training Goal, Activity Type ndd-lm-xzpqf/uvnkm-ci-mvm;anc-vj-fmlim/eavjh-bs-ocl;toilet Transfer Train Goal, Granite Level supervision required Transfer Training Goal, Additional Goal adheres to sternal precautions during transfer Consult Note - Octavia Vaughn RN - 07/12/2017 10:50 AM EST [facility] CARDIAC REHABILITATION Gregory Hoang was seen today regarding participation in the outpatient Phase 2 Cardiac Rehabilitation at [facility]. The patient agrees to a referral [...] IV site, amio to other piv and ART PSYCHOTHERAPIST at bedside to help assess, IV removed. [...] staff, he stood and marched in place. Dawson weak, wanting to sit back down. Remained [...] Health/Prescription Coverage: Primary Insurance: MEDICARE Secondary Insurance: [employer] [place] Prescription Coverage: yes Preferred Pharmacy: [facility] Other: none Primary Care Provider: Lovely Vicente MD [phone] Patient/Caregiver Goals of Treatment:live and get my breath back Potential Needs for Transition of Care: Rehab/SNF: [facility] Home Health: NA DME: TBD Dialysis: na Community Resources: available Transportation: yes Other: none Anticipated Barriers to Discharge/Special Considerations: none Plan: Likely SNF Rehab before home A member of the Care Management team will continue to monitor progress, follow for continuity of care and assist with transition of care planning. ERLIN Weiss Pager: [phone] Consult Note - Katerin Azul RN - [...] patient W/E coverage, Dr. Jeane Tatum, pager [phone] Katerin Azul APRN Endocrinology Diabetes Management Pager [phone] Plan of Care - Stephanie Godoy, RN [...] MD - 07/07/2017 6:27 PM EST [facility] Operative Note Patient Name: Gregory Hoang : [id number] MR#: [id number] Case Date: 07/07/2017 Surgeon: Surgeon(s) and Role: * Yuan Webber MD - Primary * Michael Drake PA - Physician Meteorologist Liaison * Linda Flores PA - Physician Meteorologist Liaison Preoperative diagnosis: 3VD Postoperative diagnosis: CAD, severe [...] Operative Note Patient Name: Gregory Hoang : [id number] MR#: [id number] Case Date: 07/07/2017 Surgeon: Surgeon(s) and Role: * Yuan Webber MD - Primary * Michael Drake PA - Physician Meteorologist Liaison * Linda Flores PA - Physician Meteorologist Liaison Preoperative diagnosis: 3VD Postoperative diagnosis: CAD, severe [...] (reference Cardiac: ACS (Acute Coronary Syndrome) (Adult) [facility]). 07/07/17621 Cardiac: ACS (Acute Coronary Syndrome) Problems [...] major CV events such as , stroke, AK, repeat revascularization compared to PCI). In this [...] Medicine at [facility] Cardiology S1 (Pager [phone]) Plan of Care - Emelia Ibarra RN [...] hospital and ruled infor non-ST segment elevation AK. This almost certainly represents the residual of [...] at [facility] ??? PRO THYROIDECTOMY 03/28/2013 THYROIDECTOMY, TOTAL OR COMPLETE performed by Manny Mcknight MD at [facility] MAIN OR Social History: Social [...] with other involved physicians Yuan Webber MD [phone] Med Student Progress Note - Katty Hahn [...] major CV events such as , stroke, [place], repeat revascularization compared to PCI). In this [...] or BiPAP - s/p lasix in the pathology lab technician, was net -1.5L - s/p [...] insulin drip - hold metformin - f/u [facility] ?? #Home Meds - continue levothyroxine 175mcg - CPAP at night ?? # Routine - DVT PPx: heparin drip - Diet: Healthy heart diet, NPO at midnight for CABG tomorrow - Code Status: FULL - Dispo: CVCC Katty Hahn, M3 [facility] Cardiology S1 (Pager [phone]) Plan of Care - Stephanie Godoy RN - 07/06/2017 5:00 AM EST Problem: Patient Care Overview Goal: Plan of Care Review 07/06/17 4786 Coping/Psychosocial Plan Of Care Reviewed With patient;family [...] in urinal without difficulty. Lasix given in pathology lab technician, 1.4 L out at this [...] Nobles MD [facility] [address] [place], [place] [address] (Wo rk) 05/28/2022 Appointment Cardiology Zulma Dolan MD [facility] [address] [place], [place] [address] (Wo rk) 05/28/2022 Laboratory Appointment Lab 05/28/2022 Office Visit Cardiology Zulma Dolan MD [facility] [place] [address] Liz Poole PA [facility] [place] [address] 06/10/2022 Office Visit Dermatology Laura Scherer MD [facility] [address] [place], [place] [address] (Wo rk) Scheduled Orders Name [...] procedure are i n the results section. RIB PULLER SCAN 07/15/2017 12:00 Res ults for this [...] 07/08/2017 4:00 Results f or this ([facility] [place] AM EST procedure are [...] Routine 07/07/2017 5:15 Results f or this ([facility] [place]) AM EST procedure are [...] 07/06/2017 7:40 Results f or this ([facility] [place]) PM EST procedure are [...] 07/06/2017 2:10 Results f or this ([facility] [place]) PM EST procedure are [...] TYPE AND SCREEN Routine 07/06/2017 12:00 ([facility] [place]/SHANDA) PM EST APTT STAT [...] 07/06/2017 8:10 Results f or this ([facility] [place]) AM EST procedure are [...] Routine 07/06/2017 2:20 Results f or this ([facility] [place]) AM EST procedure are [...] 07/05/2017 8:20 Results f or this ([facility] [place] PM EST procedure are i n the [...] Timed 07/05/2017 4:55 Results f or this ([facility]) PM EST procedure are i n the [...] 2017 EXAMINATION: XR CHEST PA AND LATERAL (CartilixIC) CLINICAL HISTORY: CABG x 3 TECHNIQUE: PA [...] Teague APRN IMG DX ORDERABLES SCAN DOC: RIB PULLER (07/15/2017 12:00 AM EST) Narrative 07/15/2017 12:00 [...] Signature POC Glucose 186 65 - 199 [facility] mg/dL [facility] Comment: Supplemental ranges: <140 mg/dL before meals <180 mg/dL all other times of the day Specimen Anatomical Collection Method Collection Time Receive d Time (Source) Location / / Volume Laterality Blood specimen 07/14/2017 11:56 7 (specimen) AM EST 11:56 AM EST Yuan Webber MD POINT OF CARE TEST ORDERABLE S Performing Organization Address City/State/[place] [address] POCT Glucose (07/14/2017 7:52 AM EST) athologist Signature POC Glucose 126 65 - 199 [facility] mg/dL [facility] Comment: Supplemental ranges: [...] City/[facility]/[place] [address] (ABNORMAL) Prothrombin Time (07/14/2017 [...] City/[facility]/[place] [address] Potassium (07/14/2017 4:46 AM EST) athologist Signature Potassium 4.3 3.5 - 5.0 [facility] mmol/L [facility] Comment: Please note: [...] Address City/State/ZIP Code Phon e Number [address] POCT Glucose (07/14/2017 4:34 AM EST) athologist Signature POC Glucose 115 65 - 199 [place] mg/dL [facility] Comment: Supplemental ranges: <140 mg/dL before meals <180 mg/dL all other times of the day Specimen Anatomical Collection Method Collection Time Receive d Time (Source) Location / / Volume Laterality Blood specimen 07/14/2017 4:34 AM 017 4:34 (specimen) EST AM EST Yuan Webber MD POINT OF CARE TEST ORDERABLE S Performing Organization Address City/State/ZIP Code Phon e Number [address] POCT Glucose (07/13/2017 11:33 PM EST) athologist Signature POC Glucose 132 65 - 199 [facility] mg/dL [facility] Comment: Supplemental ranges: <140 mg/dL before meals <180 mg/dL all other times of the day Specimen Anatomical Collection Method Collection Time Receive d Time (Source) Location / / Volume Laterality Blood specimen 07/13/2017 11:33 7 (specimen) PM EST 11:33 PM EST Yuan Webber MD POINT OF CARE TEST ORDERABLE S Performing Organization Address City/State/ZIP Code Phon e Number [address] POCT Glucose (07/13/2017 9:25 PM EST) athologist Signature POC Glucose 121 65 - 199 [facility] mg/dL [facility] Comment: Supplemental ranges: <140 mg/dL before meals <180 mg/dL all other times of the day Specimen Anatomical Collection Method Collection Time Receive d Time (Source) Location / / Volume Laterality Blood specimen 07/13/2017 9:25 PM 017 9:25 (specimen) EST PM EST Yuan Webber MD POINT OF CARE TEST ORDERABLE S Performing Organization Address City/State/[place] [address] POCT Glucose (07/13/2017 4:55 PM EST) athologist Signature POC Glucose 79 65 - 199 [place] mg/dL [facility] Comment: Supplemental ranges: <140 mg/dL before meals <180 mg/dL all other times of the day Specimen Anatomical Collection Method Collection Time Receive d Time (Source) Location / / Volume Laterality Blood specimen 07/13/2017 4:55 PM 017 4:55 (specimen) EST PM EST Yuan Webber MD POINT OF CARE TEST ORDERABLE S Performing Organization Address City/State/[place] [address] POCT Glucose (07/13/2017 11:16 AM EST) athologist Signature POC Glucose 163 65 - 199 [place] mg/dL [facility] Comment: Supplemental ranges: <140 mg/dL before meals <180 mg/dL all other times of the day Specimen Anatomical Collection Method Collection Time Receive d Time (Source) Location / / Volume Laterality Blood specimen 07/13/2017 11:16 7 (specimen) AM EST 11:16 AM EST Yuan Webber MD POINT OF CARE TEST ORDERABLE S Performing Organization Address City/State/[place] [address] POCT Glucose (07/13/2017 8:07 AM EST) athologist Signature POC Glucose 96 65 - 199 [facility] mg/dL [facility] Comment: Supplemental ranges: <140 mg/dL before meals <180 mg/dL all other times of the day Specimen Anatomical Collection Method Collection Time Receive d Time (Source) Location / / Volume Laterality Blood specimen 07/13/2017 8:07 AM 017 8:07 (specimen) EST AM EST Yuan Webber MD POINT OF CARE TEST ORDERABLE S Performing Organization Address City/State/[place] [address] (ABNORMAL) Prothrombin Time (07/13/2017 [...] Address City/State/[place] [address] (ABNORMAL) Basic Metabolic Panel (non-fasting) (07/13/2017 4:26 AM EST) P athologist Signature Glucose Lvl 95 65 - 199 [facility] mg/dL [facility] Comment: Diabetes: >=200 [...] MEDICAL CENTER [facility]ORY Estimated GFR 60 >=60 [facility] Comment: The reported eGFR should be multiplied b y 1.2 for patients. The MDRD is not an appropriate measure o f renal function for patients with body mass extremes or in patients with acute kidney failure. [email or web address] [email or web address]/[email or web address] Specimen Anatomical Collection Method Collection Time Receive d Time (Source) Location / / Volume Laterality Blood specimen 07/13/2017 4:26 AM 017 4:46 (specimen) EST AM EST Resulting Agency Comment Spec In Lab Makayla Wilson APRN CHEMISTRY ORDERABLES Performing Organization Address City/[facility] Code Phon e Number [address] POCT Glucose (07/13/2017 3:52 AM EST) athologist Signature POC Glucose 93 65 - 199 [facility] mg/[facility] Comment: Supplemental [...] City/[facility]/ZIP Code Phon e Number [address] POCT Glucose (07/13/2017 12:21 AM EST) athologist Signature POC Glucose 80 65 - 199 [facility] mg/dL [facility] Comment: Supplemental [...] Address City/State/[place] [address] POCT Glucose (07/12/2017 8:22 PM EST) athologist Signature POC Glucose 119 65 - 199 [place] mg/dL [facility] Comment: Supplemental ranges: <140 mg/dL before meals <180 mg/dL all other times of the day Specimen Anatomical Collection Method Collection Time Receive d Time (Source) Location / / Volume Laterality Blood specimen 07/12/2017 8:22 PM 017 8:22 (specimen) EST PM EST Yuan Webber MD POINT OF CARE TEST ORDERABLE S Performing Organization Address City/State/ZIP Code Phon e Number [address] POCT Glucose (07/12/2017 4:02 PM EST) athologist Signature POC Glucose 114 65 - 199 [place] mg/dL [facility] Comment: Supplemental ranges: <140 mg/dL before meals <180 mg/dL all other times of the day Specimen Anatomical Collection Method Collection Time Receive d Time (Source) Location / / Volume Laterality Blood specimen 07/12/2017 4:02 PM 017 4:02 (specimen) EST PM EST Yuan Webber MD POINT OF CARE TEST ORDERABLE S Performing Organization Address City/State/ZIP Code Phon e Number [address] POCT Glucose (07/12/2017 11:28 AM EST) athologist Signature POC Glucose 164 65 - 199 [place] mg/dL [facility] Comment: Supplemental ranges: [...] City/[facility]/[place] [address] POCT Glucose (07/12/2017 7:34 AM EST) P athologist Signature POC Glucose 109 65 - 199 [facility] Comment: Supplemental ranges: <140 mg/dL before meals <180 mg/dL all other times of the day Specimen Anatomical Collection Method Collection Time Receive d Time (Source) Location / / Volume Laterality Blood specimen 07/12/2017 7:34 AM 017 7:34 (specimen) EST AM EST Yuan Webber MD POINT OF CARE TEST ORDERABLE S Performing Organization Address City/State/[place] [address] (ABNORMAL) Basic Metabolic Panel (non-fasting) (07/12/2017 4:11 AM EST) P athologist Signature Glucose Lvl 92 65 - 199 [facility] mg/dL [facility] Comment: Diabetes: [...] CENTER LABORATORY Estimated GFR 58 (L) >=60 [facility] Comment: The reported eGFR should be multiplied b y 1.2 for patients. The MDRD is not an appropriate measure o f renal function for patients with body mass extremes or in patients with acute kidney failure. http://[email or web address]/DHnkdep [email or web address]/[email or web address] Specimen Anatomical Collection Method Collection Time Receive d Time (Source) Location / / Volume Laterality Blood specimen 07/12/2017 4:11 AM 017 8:57 (specimen) EST AM EST Resulting Agency Comment Spec [facility] CHEMISTRY ORDERABLES Performing Organization Address [facility] [place] [address] (ABNORMAL) Prothrombin Time (07/12/2017 [...] [place] STACIE HEMATOLOGY ORDERABLES Performing Organization Address City/[facility]/ZIP Code Ph[place] [address] Potassium (07/12/2017 4:11 AM EST) athologist Signature Potassium 3.8 3.5 - 5.0 [facility] mmol/L [facility] Comment: Please note: [...] Address City/State/ZIP Code Phon e Number [address] POCT Glucose (07/12/2017 4:10 AM EST) athologist Signature POC Glucose 90 65 - 199 [facility] mg/dL [facility] Comment: Supplemental ranges: <140 mg/dL before meals <180 mg/dL all other times of the day Specimen Anatomical Collection Method Collection Time Receive d Time (Source) Location / / Volume Laterality Blood specimen 07/12/2017 4:10 AM 017 4:10 (specimen) EST AM EST Yuan Webber MD POINT OF CARE TEST ORDERABLE S Performing Organization Address City/State/[place] [address] POCT Glucose (07/11/2017 11:57 PM EST) athologist Signature POC Glucose 98 65 - 199 [facility] mg/dL [facility] Comment: Supplemental ranges: <140 mg/dL before meals <180 mg/dL all other times of the day Specimen Anatomical Collection Method Collection Time Receive d Time (Source) Location / / Volume Laterality Blood specimen 07/11/2017 11:57 7 (specimen) PM EST 11:57 PM EST Yuan Webber MD POINT OF CARE TEST ORDERABLE S Performing Organization Address City/State/ZIP Code Phon e Number [address] POCT Glucose (07/11/2017 8:32 PM EST) P athologist Signature POC Glucose 146 65 - 199 [place] mg/dL [facility] Comment: Supplemental ranges: <140 mg/dL before meals <180 mg/dL all other times of the day Specimen Anatomical Collection Method Collection Time Receive d Time (Source) Location / / Volume Laterality Blood specimen 07/11/2017 8:32 PM 017 8:32 (specimen) EST PM EST Yuan Webber MD POINT OF CARE TEST ORDERABLE S Performing Organization Address City/State/[place] [address] XR Chest PA & [...] e xtubated, left chest tube removed, and [place]Suzi catheter removed since the study. Atelectasis at [...] e xtubated, left chest tube removed, and [place]i catheter removed since the study. Atelectasis at [...] (H) 65 - 199 [place] mg/dL [facility] Comment: Supplemental ranges: [...] City/[facility]/ZIP Code Phon e Number [address] POCT Glucose (07/11/2017 11:55 AM EST) athologist Signature POC Glucose 176 65 - 199 [place] mg/dL [facility] Comment: Supplemental ranges: [...] City/[facility]/[place] [address] POCT Glucose (07/11/2017 7:53 AM EST) athologist Signature POC Glucose 189 65 - 199 [place] mg/dL [facility] Comment: Supplemental ranges: [...] City/[facility]/[place] [address] POCT Glucose (07/11/2017 4:22 AM EST) athologist Signature POC Glucose 151 65 - 199 [facility] mg/dL [facility] Comment: Supplemental ranges: [...] City/[facility]/[place] [address] Potassium (07/11/2017 2:20 AM EST) athologist Signature Potassium 4.5 3.5 - 5.0 [facility] mmol/L [facility] Comment: Please note: [...] City/[facility]/ZIP Code Phon e Number [address] POCT Glucose (07/11/2017 12:17 AM EST) athologist Signature POC Glucose 162 65 - 199 [place] mg/dL [facility] Comment: Supplemental ranges: <140 mg/dL before meals <180 mg/dL all other times of the day Specimen Anatomical Collection Method Collection Time Receive d Time (Source) Location / / Volume Laterality Blood specimen 07/11/2017 12:17 12 7 (specimen) AM EST 12:17 AM EST Yuan Webber MD POINT OF CARE TEST ORDERABLE S Performing Organization Address City/State/ZIP Code Phon e Number [address] POCT Glucose (07/10/2017 8:47 PM EST) athologist Signature POC Glucose 191 65 - 199 [place] mg/dL [facility] Comment: Supplemental ranges: <140 mg/dL before meals <180 mg/dL all other times of the day Specimen Anatomical Collection Method Collection Time Receive d Time (Source) Location / / Volume Laterality Blood specimen 07/10/2017 8:47 PM 017 8:47 (specimen) EST PM EST Yuan Webber MD POINT OF CARE TEST ORDERABLE S Performing Organization Address City/State/ZIP Code Phon e Number [address] POCT Glucose (07/10/2017 4:06 PM EST) athologist Signature POC Glucose 131 65 - 199 [place] mg/dL [facility] [...] Address City/State/ZIP Code Phon e Number [address] POCT Glucose (07/10/2017 3:08 PM EST) athologist Signature POC Glucose 151 65 - 199 [place] mg/dL [facility] Comment: Supplemental ranges: <140 mg/dL before meals <180 mg/dL all other times of the day Specimen Anatomical Collection Method Collection Time Receive d Time (Source) Location / / Volume Laterality Blood specimen 07/10/2017 3:08 PM 017 3:08 (specimen) EST PM EST Yuan Webber MD POINT OF CARE TEST ORDERABLE S Performing Organization Address City/State/ZIP Code Phon e Number [address] POCT Glucose (07/10/2017 2:25 PM EST) athologist Signature POC Glucose 146 65 - 199 [place] mg/dL [facility] Comment: Supplemental ranges: <140 mg/dL before meals <180 mg/dL all other times of the day Specimen Anatomical Collection Method Collection Time Receive d Time (Source) Location / / Volume Laterality Blood specimen 07/10/2017 2:25 PM 017 2:25 (specimen) EST PM EST Yuan Webber MD POINT OF CARE TEST ORDERABLE S Performing Organization Address City/State/ZIP Code Phon e Number [address] POCT Glucose (07/10/2017 1:23 PM EST) athologist Signature POC Glucose 166 65 - 199 [place] mg/dL [facility] Comment: Supplemental ranges: <140 mg/dL before meals <180 mg/dL all other times of the day Specimen Anatomical Collection Method Collection Time Receive d Time (Source) Location / / Volume Laterality Blood specimen 07/10/2017 1:23 PM 017 1:23 (specimen) EST PM EST Yuan Webber MD POINT OF CARE TEST ORDERABLE S Performing Organization Address City/State/ZIP Code Phon e Number [address] POCT Glucose (07/10/2017 11:52 AM EST) athologist Signature POC Glucose 157 65 - 199 [place] mg/dL [facility] Comment: Supplemental ranges: <140 mg/dL before meals <180 mg/dL all other times of the day Specimen Anatomical Collection Method Collection Time Receive d Time (Source) Location / / Volume Laterality Blood specimen 07/10/2017 11:52 7 (specimen) AM EST 11:52 AM EST Yuan Webber MD POINT OF CARE TEST ORDERABLE S Performing Organization Address City/State/[place] [address] POCT Glucose (07/10/2017 11:01 AM EST) P athologist Signature POC Glucose 158 65 - 199 [place] mg/dL [facility] Comment: Supplemental ranges: <140 mg/dL before meals <180 mg/dL all other times of the day Specimen Anatomical Collection Method Collection Time Receive d Time (Source) Location / / Volume Laterality Blood specimen 07/10/2017 11:01 7 (specimen) AM EST 11:01 AM EST Yuan Webber MD POINT OF CARE TEST ORDERABLE S Performing Organization Address City/State/ZIP Code Phon e Number [address] POCT Glucose (07/10/2017 9:54 AM EST) athologist Signature POC Glucose 160 65 - 199 [place] mg/dL [facility] Comment: Supplemental ranges: <140 mg/dL before meals <180 mg/dL all other times of the day Specimen Anatomical Collection Method Collection Time Receive d Time (Source) Location / / Volume Laterality Blood specimen 07/10/2017 9:54 AM 017 9:54 (specimen) EST AM EST Yuan Webber MD POINT OF CARE TEST ORDERABLE S Performing Organization Address City/State/ZIP Code Phon e Number [address] POCT Glucose (07/10/2017 8:58 AM EST) athologist Signature POC Glucose 183 65 - 199 [place] mg/dL [facility] Comment: Supplemental ranges: <140 mg/dL before meals <180 mg/dL all other times of the day Specimen Anatomical Collection Method Collection Time Receive d Time (Source) Location / / Volume Laterality Blood specimen 07/10/2017 8:58 AM 017 8:58 (specimen) EST AM EST Yuan Webber MD POINT OF CARE TEST ORDERABLE S Performing Organization Address City/State/ZIP Code Phon e Number [address] POCT Glucose (07/10/2017 8:01 AM EST) athologist Signature POC Glucose 173 65 - 199 [place] mg/dL [facility] Comment: Supplemental ranges: <140 mg/dL before meals <180 mg/dL all other times of the day Specimen Anatomical Collection Method Collection Time Receive d Time (Source) Location / / Volume Laterality Blood specimen 07/10/2017 8:01 AM 017 8:01 (specimen) EST AM EST Yuan Webber MD POINT OF CARE TEST ORDERABLE S Performing Organization Address City/State/ZIP Code Phon e Number [address] POCT Glucose (07/10/2017 7:05 AM EST) athologist Signature POC Glucose 166 65 - 199 [place] mg/dL [facility] Comment: Supplemental ranges: <140 mg/dL before meals <180 mg/dL all other times of the day Specimen Anatomical Collection Method Collection Time Receive d Time (Source) Location / / Volume Laterality Blood specimen 07/10/2017 7:05 AM 017 7:05 (specimen) EST AM EST Yuan Webber MD POINT OF CARE TEST ORDERABLE S Performing Organization Address City/State/[place] [address] POCT Glucose (07/10/2017 6:00 AM EST) athologist Signature POC Glucose 162 65 - 199 [place] mg/dL [facility] Comment: Supplemental ranges: [...] City/State/ZIP Code Phon e Number [facility] [place] [address] (ABNORMAL) Differential, Automated (07/10/2017 4:28 AM EST) [facility] gist Method Time Signature Neutrophils % 87.9 % [facility] Neutr Abs (ANC) 10.70 (H) 1.70 - [facility] 6.10 [facility] x10(3)/[facility] LABORATORY Lymphocytes % 3.9 % [facility] Lymphocytes Abs 0.5 (L) 0.9 - 3.2 [facility] x10(3)/[facility] LABORATORY Monocytes % 7.0 % [facility] Monocyte Abs 0.8 0.3 - 0.9 [facility] x10(3)/[facility] LABORATORY Eosinophils % 0.3 % [facility] Eosinophils Abs 0.0 0.0 - 0.4 [facility] x10(3)/[facility] LABORATORY Basophils % 0.2 % [facility] Basophils Abs 0.0 0.0 - 0.1 [facility] x10(3)/[facility] LABORATORY Immature Gran % 0.70 % [...] Gran Abs 0.08 (H) 0.00 - 0.04 x10(3)/[facility] LABORATORY Specimen Anatomical Collection Method Collection Time Receive d Time (Source) Location / / Volume Laterality Blood specimen 07/10/2017 4:28 AM 017 4:36 (specimen) EST AM EST Resulting Agency Comment Spec In Lab Yuan Webber MD HEMATOLOGY ORDERABLES Performing Organization Address City/State/ZIP Code Phon e Number [address] (ABNORMAL) Hemogram (07/10/2017 4:28 AM EST) Analysis Performed At Patho logist Time Signature WBC 12.2 (H) 4.0 - 9.5 [facility] x[facility](3[facility] LABORATORY RBC 3.31 (L) 4.58 - [place] 5.54 [facility] x10(6)/[facility] LABORATORY Hemoglobin 9.8 (L) 13.7 - [facility] 16.5 gm/dL [facility] Hematocrit 30.0 (L) 40.5 - [facility] 48.5 % [facility] MCV 90.6 82.9 - [facility] 93.1 [facility] LABORATORY MCH 29.6 27.5 - [place] 32.1 pg [facility] MCHC 32.7 32.0 - [place] 35.7 gm/dL [facility] Platelets 135 (L) 145 - 357 [facility] x10(3)/[facility] LABORATORY RDWSD 50.8 (H) 36.0 - [facility] 45.0 [facility] LABORATORY RDWCV 15.4 (H) 11.4 - [facility] 13.8 % [facility] MPV 10.0 7.6 - 12.9 [facility] LABORATORY nRBC % Auto 0.0 % [facility] LABORATORY nRBC Abs Auto 0.000 0.000 - [facility] SU 0.000 [facility] x10(3)/[facility] LABORATORY Specimen Anatomical Collection Method Collection Time Receive d Time (Source) Location / / Volume Laterality Blood specimen 07/10/2017 4:28 AM 017 4:36 (specimen) EST AM EST Resulting Agency Comment Spec In Lab Yuan Webber MD HEMATOLOGY ORDERABLES Performing Organization Address City/State/[place] [address] (ABNORMAL) Basic Metabolic Panel (non-fasting) (07/10/2017 4:28 AM EST) athologist Signature Glucose Lvl 178 65 - 199 [facility] mg/dL [facility] Comment: Diabetes: >=200 [...] [facility]ICAL CENTER LABORATORY Estimated GFR 60 >=60 [facility] LABOR[facility]ORY Comment: The reported eGFR should be multiplied b y 1.2 for patients. The MDRD is not an appropriate measure o f renal function for patients with body mass extremes or in patients with acute kidney failure. [email or web address] Specimen Anatomical Collection Method Collection Time Receive d Time (Source) Location / / Volume Laterality Blood specimen 07/10/2017 4:28 AM 017 4:36 (specimen) EST AM EST Resulting Agency Comment Spec In Lab Yuan Webber MD CHEMISTRY ORDERABLES Performing Organization Address City/State/[place] [address] POCT Glucose (07/10/2017 4:26 AM EST) athologist Signature POC Glucose 176 65 - 199 [place] mg/dL [facility] Comment: Supplemental ranges: <140 mg/dL before meals <180 mg/dL all other times of the day Specimen Anatomical Collection Method Collection Time Receive d Time (Source) Location / / Volume Laterality Blood specimen 07/10/2017 4:26 AM 017 4:26 (specimen) EST AM EST Yuan Webber MD POINT OF CARE TEST ORDERABLE S Performing Organization Address City/State/[place] [address] (ABNORMAL) POCT Glucose (07/10/2017 3:06 AM EST) athologist Signature POC Glucose 204 (H) 65 - 199 [place] mg/dL [facility] Comment: Supplemental ranges: <140 mg/dL before meals <180 mg/dL all other times of the day Specimen Anatomical Collection Method Collection Time Receive d Time (Source) Location / / Volume Laterality Blood specimen 07/10/2017 3:06 AM 017 3:06 (specimen) EST AM EST Yuan Webber MD POINT OF CARE TEST ORDERABLE S Performing Organization Address City/State/[place] [address] (ABNORMAL) POCT Glucose (07/10/2017 2:10 AM EST) athologist Signature POC Glucose 203 (H) 65 - 199 [place] mg/dL [facility] Comment: Supplemental ranges: <140 mg/dL before meals <180 mg/dL all other times of the day Specimen Anatomical Collection Method Collection Time Receive d Time (Source) Location / / Volume Laterality Blood specimen 07/10/2017 2:10 AM 017 2:10 (specimen) EST AM EST Yuan Webber MD POINT OF CARE TEST ORDERABLE S Performing Organization Address City/State/[place] [address] POCT Glucose (07/10/2017 1:09 AM EST) athologist Signature POC Glucose 196 65 - 199 [place] mg/dL [facility] Comment: Supplemental ranges: <140 mg/dL before meals <180 mg/dL all other times of the day Specimen Anatomical Collection Method Collection Time Receive d Time (Source) Location / / Volume Laterality Blood specimen 07/10/2017 1:09 AM 017 1:09 (specimen) EST AM EST Yuan Webber MD POINT OF CARE TEST ORDERABLE S Performing Organization Address City/State/ZIP Code Phon e Number [address] POCT Glucose (07/10/2017 12:10 AM EST) athologist Signature POC Glucose 173 65 - 199 [place] mg/dL [facility] Comment: Supplemental ranges: <140 mg/dL before meals <180 mg/dL all other times of the day Specimen Anatomical Collection Method Collection Time Receive d Time (Source) Location / / Volume Laterality Blood specimen 07/10/2017 12:10 7 (specimen) AM EST 12:10 AM EST Yuan Webber MD POINT OF CARE TEST ORDERABLE S Performing Organization Address City/State/ZIP Code Phon e Number [address] POCT Glucose (07/09/2017 11:01 PM EST) athologist Signature POC Glucose 140 65 - 199 [place] mg/dL [facility] Comment: Supplemental ranges: <140 mg/dL before meals <180 mg/dL all other times of the day Specimen Anatomical Collection Method Collection Time Receive d Time (Source) Location / / Volume Laterality Blood specimen 07/09/2017 11:01 7 (specimen) PM EST 11:01 PM EST Yuan Webber MD POINT OF CARE TEST ORDERABLE S Performing Organization Address City/State/ZIP Code Phon e Number [address] POCT Glucose (07/09/2017 10:05 PM EST) athologist Signature POC Glucose 144 65 - 199 [place] mg/dL [facility] Comment: Supplemental ranges: <140 mg/dL before meals <180 mg/dL all other times of the day Specimen Anatomical Collection Method Collection Time Receive d Time (Source) Location / / Volume Laterality Blood specimen 07/09/2017 10:05 7 (specimen) PM EST 10:05 PM EST Yuan Webber MD POINT OF CARE TEST ORDERABLE S Performing Organization Address City/State/[place] [address] POCT Glucose (07/09/2017 9:31 PM EST) athologist Signature POC Glucose 121 65 - 199 [place] mg/dL [facility] Comment: Supplemental ranges: <140 mg/dL before meals <180 mg/dL all other times of the day Specimen Anatomical Collection Method Collection Time Receive d Time (Source) Location / / Volume Laterality Blood specimen 07/09/2017 9:31 PM 017 9:31 (specimen) EST PM EST Yuan Webber MD POINT OF CARE TEST ORDERABLE S Performing Organization Address City/State/ZIP Code Phon e Number [address] POCT Glucose (07/09/2017 9:03 PM EST) athologist Signature POC Glucose 98 65 - 199 [place] mg/dL [facility] Comment: Supplemental ranges: <140 mg/dL before meals <180 mg/dL all other times of the day Specimen Anatomical Collection Method Collection Time Receive d Time (Source) Location / / Volume Laterality Blood specimen 07/09/2017 9:03 PM 017 9:03 (specimen) EST PM EST Yuan Webber MD POINT OF CARE TEST ORDERABLE S Performing Organization Address City/State/ZIP Code Phon e Number [address] POCT Glucose (07/09/2017 8:09 PM EST) athologist Signature POC Glucose 117 65 - 199 [place] mg/dL [facility] Comment: Supplemental ranges: <140 mg/dL before meals <180 mg/dL all other times of the day Specimen Anatomical Collection Method Collection Time Receive d Time (Source) Location / / Volume Laterality Blood specimen 07/09/2017 8:09 PM 017 8:09 (specimen) EST PM EST Yuan Webber MD POINT OF CARE TEST ORDERABLE S Performing Organization Address City/State/[place] [address] POCT Glucose (07/09/2017 5:40 PM EST) athologist Signature POC Glucose 155 65 - 199 [place] mg/dL [facility] Comment: Supplemental ranges: <140 mg/dL before meals <180 mg/dL all other times of the day Specimen Anatomical Collection Method Collection Time Receive d Time (Source) Location / / Volume Laterality Blood specimen 07/09/2017 5:40 PM 017 5:40 (specimen) EST PM EST Yuan Webber MD POINT OF CARE TEST ORDERABLE S Performing Organization Address City/State/[place] [address] POCT Glucose (07/09/2017 4:24 PM EST) athologist Signature POC Glucose 164 65 - 199 [facility] mg/dL [facility] Comment: Supplemental ranges: <140 mg/dL before meals <180 mg/dL all other times of the day Specimen Anatomical Collection Method Collection Time Receive d Time (Source) Location / / Volume Laterality Blood specimen 07/09/2017 4:24 PM 017 4:24 (specimen) EST PM EST Yuan Webber MD POINT OF CARE TEST ORDERABLE S Performing Organization Address City/State/[place] [address] POCT Glucose (07/09/2017 3:19 PM EST) athologist Signature POC Glucose 166 65 - 199 [place] mg/dL [facility] Comment: Supplemental ranges: <140 mg/dL before meals <180 mg/dL all other times of the day Specimen Anatomical Collection Method Collection Time Receive d Time (Source) Location / / Volume Laterality Blood specimen 07/09/2017 3:19 PM 017 3:19 (specimen) EST PM EST Yuan Webber MD POINT OF CARE TEST ORDERABLE S Performing Organization Address City/State/[place] [address] POCT Glucose (07/09/2017 2:26 PM EST) athologist Signature POC Glucose 179 65 - 199 [place] mg/dL [facility] Comment: Supplemental ranges: <140 mg/dL before meals <180 mg/dL all other times of the day Specimen Anatomical Collection Method Collection Time Receive d Time (Source) Location / / Volume Laterality Blood specimen 07/09/2017 2:26 PM 017 2:26 (specimen) EST PM EST Yuan Webber MD POINT OF CARE TEST ORDERABLE S Performing Organization Address City/State/[place] [address] (ABNORMAL) POCT Glucose (07/09/2017 1:29 PM EST) athologist Signature POC Glucose 210 (H) 65 - 199 [place] mg/dL [facility] Comment: Supplemental ranges: <140 mg/dL before meals <180 mg/dL all other times of the day Specimen Anatomical Collection Method Collection Time Receive d Time (Source) Location / / Volume Laterality Blood specimen 07/09/2017 1:29 PM 017 1:29 (specimen) EST PM EST Yuan Webber MD POINT OF CARE TEST ORDERABLE S Performing Organization Address City/State/ZIP Code Phon e Number [address] POCT Glucose (07/09/2017 12:20 PM EST) athologist Signature POC Glucose 172 65 - 199 [place] mg/dL [facility] Comment: Supplemental ranges: <140 mg/dL before meals <180 mg/dL all other times of the day Specimen Anatomical Collection Method Collection Time Receive d Time (Source) Location / / Volume Laterality Blood specimen 07/09/2017 12:20 7 (specimen) PM EST 12:20 PM EST Yuan Webber MD POINT OF CARE TEST ORDERABLE S Performing Organization Address City/State/ZIP Code Phon e Number [address] POCT Glucose (07/09/2017 11:24 AM EST) P athologist Signature POC Glucose 156 65 - 199 [place] mg/dL [facility] Comment: Supplemental ranges: <140 mg/dL before meals <180 mg/dL all other times of the day Specimen Anatomical Collection Method Collection Time Receive d Time (Source) Location / / Volume Laterality Blood specimen 07/09/2017 11:24 7 (specimen) AM EST 11:24 AM EST Yuan Webber MD POINT OF CARE TEST ORDERABLE S Performing Organization Address City/State/ZIP Code Phon e Number [address] POCT Glucose (07/09/2017 11:11 AM EST) P athologist Signature POC Glucose 172 65 - 199 [facility] mg/dL [facility] Comment: Supplemental ranges: <140 mg/dL before meals <180 mg/dL all other times of the day Specimen Anatomical Collection Method Collection Time Receive d Time (Source) Location / / Volume Laterality Blood specimen 07/09/2017 11:11 7 (specimen) AM EST 11:11 AM EST Yuan Webber MD POINT OF CARE TEST ORDERABLE S Performing Organization Address City/State/[place] [address] POCT Glucose (07/09/2017 10:08 AM EST) P athologist Signature POC Glucose 176 65 - 199 [facility] mg/dL [facility] Comment: Supplemental ranges: <140 mg/dL before meals <180 mg/dL all other times of the day Specimen Anatomical Collection Method Collection Time Receive d Time (Source) Location / / Volume Laterality Blood specimen 07/09/2017 10:08 7 (specimen) AM EST 10:08 AM EST Yuan Webber MD POINT OF CARE TEST ORDERABLE S Performing Organization Address City/State/[place] [address] POCT Glucose (07/09/2017 8:02 AM EST) P athologist Signature POC Glucose 178 65 - 199 [facility] mg/dL [facility] Comment: Supplemental ranges: <140 mg/dL before meals <180 mg/dL all other times of the day Specimen Anatomical Collection Method Collection Time Receive d Time (Source) Location / / Volume Laterality Blood specimen 07/09/2017 8:02 AM 017 8:02 (specimen) EST AM EST Yuan Webber MD POINT OF CARE TEST ORDERABLE S Performing Organization Address City/State/[place] [address] (ABNORMAL) BLOOD GAS 2 ARTERIAL (07/09/2017 5:37 AM EST) Analysis Performed At Patho logist Time Signature pH Art 7.36 7.35 - [facility] 7.45 [facility] pCO2 Art 38 35 - 45 [facility] LABORATORY pO2 Art 79 (L) 85 - 104 [facility] LABORATORY HCO3 Art 20.9 20.0 - [facility] 26.0 [facility] mmol/L [facility] LABORATORY BE Art -4.6 (L) -3.0 - 3.0 [facility] mmol/L [facility] Hgb Blood Gas 10.5 (L) 13.7 - [facility] 16.5 gm/dL [facility] O2HB Art 93.8 (L) 94.0 - [facility] 97.0 % [facility] COHB Art 0.3 % [facility] [...] Lactate WB 1.0 0.5 - 2.2 mmol/L [facility] FIO2 Art 40 % [facility] PF Ratio Art 198 [facility] LABOR[facility]ORY Specimen Anatomical Collection Method Collection Time Receive d Time (Source) Location / / Volume Laterality Blood specimen 07/09/2017 5:37 AM 017 5:37 (specimen) EST AM EST Yuan Webber MD CHEMISTRY ORDERABLES Performing Organization Address City/[facility]/[place] [address] POCT Glucose (07/09/2017 3:27 AM EST) P athologist Signature POC Glucose 192 65 - 199 [facility] mg/dL [facility] Comment: Supplemental ranges: [...] City/[facility]/[place] [address] (ABNORMAL) Basic Metabolic Panel (non-fasting) (07/09/2017 2:30 AM EST) athologist Signature Glucose Lvl 179 65 - 199 [facility] mg/dL [facility] Comment: Diabetes: >=200 [...] or in patients with acute kidney failure. [email or web address] Specimen Anatomical Collection Method Collection Time Receive d Time (Source) Location / / Volume Laterality Blood specimen Venous Draw / 07/09/2017 2:30 AM 2016 2:42 (specimen) Unknown EST AM EST Resulting Agency Comment Spec In Lab Yuan Webber MD CHEMISTRY ORDERABLES Performing Organization Address City/State/Z[place] [address] (ABNORMAL) Potassium (07/09/2017 2:30 AM EST) P athologist Signature Potassium 5.1 (H) 3.5 - 5.0 [place] mmol/L [facility] Comment: Please note: [...] Organization Address City/State/Z[place] [address] (ABNORMAL) Hemogram (07/09/2017 2:30 AM EST) Analysis Performed At Patho logist Time Signature WBC 12.5 (H) 4.0 - 9.5 [place] x10(3)/[facility] LABORATORY RBC 3.38 (L) 4.58 - [place] 5.54 [facility] x10(6)/[facility] LABORATORY Hemoglobin 10.1 (L) 13.7 - [place] 16.5 gm/dL [facility] Hematocrit 30.3 (L) 40.5 - [place] 48.5 % [facility] MCV 89.6 82.9 - [place] 93.1 [facility] LABORATORY MCH 29.9 27.5 - [place] 32.1 pg [facility] MCHC 33.3 32.0 - [place] 35.7 gm/dL [facility] Platelets 127 (L) 145 - 357 [place] x10(3)/[facility] LABORATORY RDWSD 49.3 (H) 36.0 - [place] 45.0 [facility] LABORATORY RDWCV 15.2 (H) 11.4 - [facility] 13.8 % [facility] MPV 9.9 7.6 - 12.9 [place] [facility] LABORATORY nRBC % Auto 0.0 % [facility]ATORY nRBC Abs Auto 0.000 0.000 - [place] 0.000 [facility] x10(3)/[facility] LABORATORY Specimen Anatomical Collection Method Collection Time Receive d Time (Source) Location / / Volume Laterality Blood specimen 07/09/2017 2:30 AM 017 2:41 (specimen) EST AM EST Resulting Agency Comment Spec In Lab Yuan Webber MD HEMATOLOGY ORDERABLES Performing Organization Address City/State/ZIP Code Phon e Number [address] POCT Glucose (07/09/2017 2:10 AM EST) P athologist Signature POC Glucose 169 65 - 199 [place] mg/dL [facility] Comment: Supplemental ranges: [...] City/[facility]/ZIP Code Phon e Number [address] POCT Glucose (07/09/2017 1:01 AM EST) P athologist Signature POC Glucose 173 65 - 199 [place] mg/dL [facility] Comment: Supplemental ranges: [...] City/[facility]/ZIP Code Phon e Number [address] Blood culture (07/09/2017 12:40 AM EST) [facility] Method Time Signature Blood Culture No growth [place] at 5 days. [facility] Specimen Anatomical Collection Method Collection Time Receive d Time (Source) Location / / Volume Laterality Blood specimen STRUCTURE OF RIGHT 07/09/2017 12:40 3:58 (specimen) UPPER LIMB / AM EST AM EST Unknown Resulting Agency Comment Spec In Lab Yuan Webber MD MICROBIOLOGY - BLOOD ORDERAB LES Performing Organization Address City/State/[place] [address] Blood culture (07/09/2017 12:30 AM EST) Patholo gist Method Time Signature Blood Culture No growth [place] at 5 days. [facility] Specimen Anatomical Collection Method Collection Time Receive d Time (Source) Location / / Volume Laterality Blood specimen STRUCTURE OF LEFT 07/09/2017 12:30 06/25 3:59 (specimen) UPPER LIMB / AM EST AM EST Unknown Resulting Agency Comment Spec In Lab Yuan Webber MD MICROBIOLOGY - BLOOD ORDERAB LES Performing Organization Address City/[facility]/[place] [address] (ABNORMAL) Urinalysis Microscopic Exam (07/09/2017 12:05 AM EST) Analysis Performed At Patho logist Time Signature RBC UA 32 (H) 0 - 3 /HPF [facility] WBC UA 5 (H) 0 - 3 /HPF [facility] Squam Epith UA <1 <=4 /HPF [facility] Hyaline Cast 17 (H) 0 - 2 /LPF [facility] LABORATORY Gran Cast UA 1 (H) <=0 /LPF [facility] Uric Ac Bianca Rare (A) None /HPF [facility] LABORATORY Specimen (Source) Anatomical Collection Method Collection Time Re ceived Time Location / / Volume Laterality Urine specimen 07/09/2017 12:05 7 obtained via AM EST 12:39 AM EST indwelling urinary catheter (specimen) Resulting Agency Comment Spec In Lab Yuan Webber MD URINE ORDERABLES Performing Organization Address City/State/[place] [address] (ABNORMAL) Urinalysis with reflex Culture (07/09/2017 12:05 AM EST) Patholo gist Method Time Signature Glucose UA Negative Negative [facility] mg/dL [facility] Protein UA 30 (A) Negative [facility] mg/dL [facility] Bilirubin UA Negative Negative [facility] mg/dL [facility] Comment: Clinical correlation [...] LABORATORY Blood UA Moderate (A) Negative mg/dL [facility] Ketones UA Negative Negative mg/dL [facility] Nitrite UA Negative Negative [facility] LABORATORY Leukocytes UA Negative Negative mcL [facility] LABORATORY Appearance UA Hazy (A) Clear [facility]OR[facility] Spec [place] UA 1.025 1.002 - 1.030 [facility] LABORATORY Color UA Yellow Yellow [facility]OR[facility] Culture Reflexed No [facility] LABORATORY Specimen (Source) Anatomical Collection Method Collection Time Re ceived Time Location / / Volume Laterality Urine specimen 07/09/2017 12:05 7 obtained via AM EST 12:39 AM EST indwelling urinary catheter (specimen) Resulting Agency Comment Spec In Lab Yuan Webber MD URINE ORDERABLES Performing Organization Address City/State/ZIP Code Phon e Number [place] [id number] POCT Glucose (07/08/2017 11:01 PM EST) P athologist Signature POC Glucose 191 65 - 199 [facility] mg/dL [facility] Comment: Supplemental ranges: <140 mg/dL before meals <180 mg/dL all other times of the day Specimen Anatomical Collection Method Collection Time Receive d Time (Source) Location / / Volume Laterality Blood specimen 07/08/2017 11:01 7 (specimen) PM EST 11:01 PM EST Yuan Webber MD POINT OF CARE TEST ORDERABLE S Performing Organization Address City/State/[place] [address] POCT Glucose (07/08/2017 10:04 PM EST) P athologist Signature POC Glucose 198 65 - 199 [facility] mg/dL [facility] Comment: Supplemental ranges: [...] City/[facility]/[place] [address] Prepare Albumin 5% in [...] Address City/State/[place] [address] POCT Glucose (07/08/2017 8:28 PM EST) P athologist Signature POC Glucose 195 65 - 199 [facility] Comment: Supplemental ranges: <140 mg/dL before meals <180 mg/dL all other times of the day Specimen Anatomical Collection Method Collection Time Receive d Time (Source) Location / / Volume Laterality Blood specimen 07/08/2017 8:28 PM 017 8:28 (specimen) EST PM EST Yuan Webber MD POINT OF CARE TEST ORDERABLE S Performing Organization Address City/State/[place] [address] (ABNORMAL) POCT Glucose (07/08/2017 7:13 PM EST) P athologist Signature POC Glucose 220 (H) 65 - 199 [facility] mg[facility]dL [facility] Comment: Supplemental ranges: <140 mg/dL before meals <180 mg/dL all other times of the day Specimen Anatomical Collection Method Collection Time Receive d Time (Source) Location / / Volume Laterality Blood specimen 07/08/2017 7:13 PM 017 7:13 (specimen) EST PM EST Yuan Webber MD POINT OF CARE TEST ORDERABLE S Performing Organization Address City/State/[place] [address] POCT Glucose (07/08/2017 5:04 PM EST) athologist Signature POC Glucose 147 65 - 199 [facility] Comment: Supplemental ranges: <140 mg/dL before meals <180 mg/dL all other times of the day Specimen Anatomical Collection Method Collection Time Receive d Time (Source) Location / / Volume Laterality Blood specimen 07/08/2017 5:04 PM 017 5:04 (specimen) EST PM EST Yuan Webber MD POINT OF CARE TEST ORDERABLE S Performing Organization Address City/State/[place] [address] (ABNORMAL) BLOOD GAS 2 ARTERIAL (07/08/2017 4:13 PM EST) Analysis Performed At Patho logist Time Signature pH Art 7.38 7.35 - [facility] 7.45 [facility] pCO2 Art 36 35 - 45 [facility] LABORATORY pO2 Art 91 85 - 104 [facility] LABORATORY HCO3 Art 20.9 20.0 - [facility] 26.0 [facility] mmol/L [facility] BE Art -4.2 (L) -3.0 - 3.0 [facility] mmol/L [facility] Hgb Blood Gas 11.7 (L) 13.7 - [facility] 16.5 gm/dL [facility] O2HB Art 95.1 94.0 - [facility] 97.0 % [facility] COHB Art 0.6 % [facility] [...] Lactate WB 1.4 0.5 - 2.2 mmol/L [facility] FIO2 Art 40 % [facility] PF Ratio Art [address] [facility] Specimen Anatomical Collection Method Collection Time Receive d Time (Source) Location / / Volume Laterality Blood specimen 07/08/2017 4:13 PM 017 4:13 (specimen) EST PM EST Yuan Webber MD CHEMISTRY ORDERABLES Performing Organization Address City/State/Z[place] [address] POCT Glucose (07/08/2017 4:01 PM EST) athologist Signature POC Glucose 148 65 - 199 [facility] mg/dL [facility] Comment: Supplemental ranges: <140 mg/dL before meals <180 mg/dL all other times of the day Specimen Anatomical Collection Method Collection Time Receive d Time (Source) Location / / Volume Laterality Blood specimen 07/08/2017 4:01 PM 017 4:01 (specimen) EST PM EST Yuan Webber MD POINT OF CARE TEST ORDERABLE S Performing Organization Address City/State/ZIP Code Phon e Number [address] POCT Glucose (07/08/2017 3:21 PM EST) athologist Signature POC Glucose 118 65 - 199 [place] mg/dL [facility] Comment: Supplemental ranges: <140 mg/dL before meals <180 mg/dL all other times of the day Specimen Anatomical Collection Method Collection Time Receive d Time (Source) Location / / Volume Laterality Blood specimen 07/08/2017 3:21 PM 017 3:21 (specimen) EST PM EST Yuan Webber MD POINT OF CARE TEST ORDERABLE S Performing Organization Address City/State/ZIP Code Phon e Number [address] POCT Glucose (07/08/2017 2:01 PM EST) athologist Signature POC Glucose 129 65 - 199 [place] mg/dL [facility] Comment: Supplemental ranges: <140 mg/dL before meals <180 mg/dL all other times of the day Specimen Anatomical Collection Method Collection Time Receive d Time (Source) Location / / Volume Laterality Blood specimen 07/08/2017 2:01 PM 017 2:01 (specimen) EST PM EST Yuan Webber MD POINT OF CARE TEST ORDERABLE S Performing Organization Address City/State/ZIP Code Phon e Number [address] POCT Glucose (07/08/2017 11:53 AM EST) athologist Signature POC Glucose 156 65 - 199 [facility] Comment: Supplemental ranges: <140 mg/dL before meals <180 mg/dL all other times of the day Specimen Anatomical Collection Method Collection Time Receive d Time (Source) Location / / Volume Laterality Blood specimen 07/08/2017 11:53 7 (specimen) AM EST 11:53 AM EST Yuan Webber MD POINT OF CARE TEST ORDERABLE S Performing Organization Address City/State/[place] [address] POCT Glucose (07/08/2017 11:04 AM EST) athologist Signature POC Glucose 181 65 - 199 [facility] mg/dL [facility] Comment: Supplemental ranges: [...] City/[facility]/[place] [address] (ABNORMAL) POCT Glucose (07/08/2017 9:24 AM EST) athologist Signature POC Glucose 203 (H) 65 - 199 [facility] mg/dL [facility] Comment: Supplemental ranges: <140 mg/dL before meals <180 mg/dL all other times of the day Specimen Anatomical Collection Method Collection Time Receive d Time (Source) Location / / Volume Laterality Blood specimen 07/08/2017 9:24 AM 017 9:24 (specimen) EST AM EST Yuan Webber MD POINT OF CARE TEST ORDERABLE S Performing Organization Address City/State/ZIP Code Phon e Number [address] APTT (07/08/2017 8:40 AM EST) athologist Signature PTT 33 25 - 35 sec [facility] Comment: The recommended therapeutic range for fu ll dose, unfractionated heparin at [facility] is 80 ? 114 [...] MD HEMATOLOGY ORDERABLES Performing Organization Address [facility] [place] [address] (ABNORMAL) Prothrombin Time (07/08/2017 8:40 AM EST) P athologist Signature PT 15.6 (H) 11.8 - 14.0 [facility] [...] ORDERABLES Performing Organization Address City/[facility] [place] [address] (ABNORMAL) POCT Glucose (07/08/2017 7:38 AM EST) P athologist Signature POC Glucose 232 (H) 65 - 199 [facility] mg/dL [facility] Comment: Supplemental ranges: <140 mg/dL before meals <180 mg/dL all other times of the day Specimen Anatomical Collection Method Collection Time Receive d Time (Source) Location / / Volume Laterality Blood specimen 07/08/2017 7:38 AM 017 7:38 (specimen) EST AM EST Yuan Webber MD POINT OF CARE TEST ORDERABLE S Performing Organization Address City/State/[place] [address] (ABNORMAL) POCT Glucose (07/08/2017 7:07 AM EST) athologist Signature POC Glucose 234 (H) 65 - 199 [place] mg/dL [facility] Comment: Supplemental ranges: [...] City/[facility]/[place] [address] (ABNORMAL) POCT Glucose (07/08/2017 6:04 AM EST) athologist Signature POC Glucose 225 (H) 65 - 199 [place] mg/dL [facility] Comment: Supplemental ranges: [...] City/[facility]/[place] [address] (ABNORMAL) POCT Glucose (07/08/2017 5:31 AM EST) athologist Signature POC Glucose 216 (H) 65 - 199 [facility] mg/dL [facility] Comment: Supplemental ranges: <140 mg/dL before meals <180 mg/dL all other times of the day Specimen Anatomical Collection Method Collection Time Receive d Time (Source) Location / / Volume Laterality Blood specimen 07/08/2017 5:31 AM 017 5:31 (specimen) EST AM EST Yuan Webber MD POINT OF CARE TEST ORDERABLE S Performing Organization Address City/State/[place] [address] (ABNORMAL) POCT Glucose (07/08/2017 4:52 AM EST) P athologist Signature POC Glucose 257 (H) 65 - 199 [facility] mg/dL [facility] Comment: Supplemental ranges: <140 mg/dL before meals <180 mg/dL all other times of the day Specimen Anatomical Collection Method Collection Time Receive d Time (Source) Location / / Volume Laterality Blood specimen 07/08/2017 4:52 AM 017 4:52 (specimen) EST AM EST Daphne Shahid MD POINT OF CARE TEST ORDERABLE S Performing Organization Address City/State/[place] [address] (ABNORMAL) BLOOD GAS 2 ARTERIAL (07/08/2017 4:04 AM EST) Analysis Performed At Patho logist Time Signature pH Art 7.30 (L) 7.35 - [facility] 7.45 [facility] pCO2 Art 41 35 - 45 [facility] mmHg [facility] pO2 Art 83 (L) 85 - 104 [facility] LABORATORY HCO3 Art 19.6 (L) 20.0 - [facility] 26.0 [facility] mmol/L [facility] BE Art -6.8 (L) -3.0 - 3.0 [facility] mmol/L [facility] Hgb Blood Gas 12.2 (L) 13.7 - [facility] 16.5 gm/dL [facility] O2HB Art 93.5 (L) 94.0 - [facility] 97.0 % [facility] COHB Art 0.4 % [facility] [...] [facility] Comment: Noted by panel instrument repairer. FIO2 Art 40 % [facility] PF Ratio Art 208 [facility] Specimen Anatomical Collection Method Collection Time Receive d Time (Source) Location / / Volume Laterality Blood specimen 07/08/2017 4:04 AM 017 4:04 (specimen) EST AM EST Daphne Shahid MD CHEMISTRY ORDERABLES Performing Organization Address City/[facility]/[place] [address] Scan, Peripheral Blood (07/08/2017 [...] City/[facility]/[place] [address] (ABNORMAL) Differential, Automated (07/08/2017 4:00 AM EST) Patholo gist Method Time Signature Neutrophils % 85.4 % [facility] LABORATORY Neutr Abs (ANC) 16.07 (H) 1.70 - [facility] 6.10 [facility] x10(3)/[facility] L LABORATORY Lymphocytes % 3.5 % [facility] LABORATORY Lymphocytes Abs 0.6 (L) 0.9 - 3.2 [facility] x10(3)/[facility] LABORATORY Monocytes % 10.4 % [facility] LABORATORY Monocyte Abs 2.0 (H) 0.3 - 0.9 [facility] x10(3)/[facility] LABORATORY Eosinophils % 0.0 % [facility] LAB[facility]ORY Eosinophils Abs 0.0 0.0 - 0.4 [facility] x10(3)/[facility] LABORATORY Basophils % 0.1 % [facility] LABORATORY Basophils Abs 0.0 0.0 - 0.1 [facility] x10(3)/[facility] LABORATORY Immature Gran % 0.60 % [...] Gran Abs 0.12 (H) 0.00 - 0.04 x10(3)/[facility] LABORATORY Specimen Anatomical Collection Method Collection Time Receive d Time (Source) Location / / Volume Laterality Blood specimen 07/08/2017 4:00 AM 017 4:09 (specimen) EST AM EST Resulting Agency Comment Spec In Lab Yuan Webber MD HEMATOLOGY ORDERABLES Performing Organization Address City/State/ZIP [place] [address] (ABNORMAL) Hemogram (07/08/2017 4:00 AM EST) Analysis Performed At Patho logist Time Signature WBC 18.8 (H) 4.0 - 9.5 [facility] x10(3)/[facility] LABORATORY RBC 4.00 (L) 4.58 - [place] 5.54 [facility] x10(6)/[facility] LABORATORY Hemoglobin 11.9 (L) 13.7 - [place] 16.5 gm/dL [facility] Hematocrit 35.9 (L) 40.5 - [place] 48.5 % [facility] MCV 89.8 82.9 - [facility] 93.1 [facility] LABORATORY MCH 29.8 27.5 - [place] 32.1 pg [facility] MCHC 33.1 32.0 - [place] 35.7 gm/dL [facility] Platelets 232 145 - 357 [facility] x10(3)/[facility] LABORATORY RDWSD 47.6 (H) 36.0 - [place] 45.0 [facility] LABORATORY RDWCV 14.5 (H) 11.4 - [facility] 13.8 % [facility] MPV 9.5 7.6 - 12.9 [place] [facility] LABORATORY nRBC % Auto 0.0 % [facility] nRBC Abs Auto 0.000 0.000 - [place] 0.000 [facility] x10(3)/[facility] LABORATORY Specimen Anatomical Collection Method Collection Time Receive d Time (Source) Location / / Volume Laterality Blood specimen 07/08/2017 4:00 AM 017 4:09 (specimen) EST AM EST Resulting Agency Comment Spec In Lab Yuan Webber MD HEMATOLOGY ORDERABLES Performing Organization Address City/State/ZIP [place] [address] (ABNORMAL) Electrolytes panel (07/08/2017 4:00 AM EST) P athologist Signature Sodium 139 135 - 145 [facility] mmol/L [facility] Potassium 4.7 3.5 - 5.0 [facility] mmol/L [facility] Comment: result rechecked-JLK Please note: [...] - 15 mmol/L [facility] LABORATORY Specimen Anatomical Collection Method Collection Time Receive d Time (Source) Location / / Volume Laterality Blood specimen 07/08/2017 4:00 AM 017 4:10 (specimen) EST AM EST Resulting Agency Comment Spec In Lab Yuan Webber MD CHEMISTRY ORDERABLES Performing Organization Address City/State/Z[place] [address] (ABNORMAL) Cardiac Enzymes (LEB/CGP) (07/08/2017 4:00 AM EST) P athologist Signature Troponin-T 1.88 (H) 0.00 - [facility] 0.00 ng/mL [facility] Comment: The [...] additional sample may be indicated. Reference: [employer] [place] Definition of Myocardial Infarction. Journal of the [employer] 2012;60:1581-98 CK, Total 413 (H) 0 - 200 unit/L [facility] Comment: result rechecked-JLK Specimen Anatomical Collection Method Collection Time Receive d Time (Source) Location / / Volume Laterality Blood specimen 07/08/2017 4:00 AM 017 4:09 (specimen) EST AM EST Resulting Agency Comment Spec In Lab Yuan Webber MD CHEMISTRY ORDERABLES Performing Organization Address City/[facility]/ZIP Code Phon e Number [address] (ABNORMAL) Glucose, fasting (07/08/2017 4:00 AM EST) P athologist Signature Glucose 287 (H) 65 - 99 [facility] Fasting mg/dL [facility] Comment: ?Fasting* [...] of Diabetes Mellitus, Position Statement from the [place]. ??Diabete s Care, Volume 33, Supplement 1, Jul 2009 Specimen Anatomical Collection Method Collection Time Receive d Time (Source) Location / / Volume Laterality Blood specimen 07/08/2017 4:00 AM 017 4:09 (specimen) EST AM EST Resulting Agency Comment Spec In Lab Yuan Webber MD CHEMISTRY ORDERABLES Performing Organization Address City/[facility]/ZIP Code Phon e Number [address] (ABNORMAL) Creatinine (07/08/2017 4:00 AM EST) Analysis Performed At Patho logist Time Signature Creatinine 1.55 (H) 0.80 - [facility] 1.50 mg/dL [facility] Estimated GFR 44 (L) >=60 [facility] Comment: The reported eGFR should be multiplied b y 1.2 for patients. The MDRD is not an appropriate measure o f renal function for patients with body mass extremes or in patients with acute kidney failure. http://Captora/DHnkdep http://Captora/DHMCnkf Specimen Anatomical Collection Method Collection Time Receive d Time (Source) Location / / Volume Laterality Blood specimen 07/08/2017 4:00 AM 017 4:09 (specimen) EST AM EST Resulting Agency Comment Spec In Lab Yuan Webber MD CHEMISTRY ORDERABLES Performing Organization Address City/[facility]/ZIP [facility] Phon e Number [address] BUN (07/08/2017 4:00 AM EST) athologist Signature BUN 16 10 - 20 [facility] Specimen Anatomical Collection Method Collection Time Receive d Time (Source) Location / / Volume Laterality Blood specimen 07/08/2017 4:00 AM 017 4:09 (specimen) EST AM EST Resulting Agency Comment Spec In Lab Yuan Webber MD CHEMISTRY ORDERABLES Performing Organization Address City/[facility] [place] [address] (ABNORMAL) POCT Glucose (07/08/2017 3:00 AM EST) athologist Signature POC Glucose 273 (H) 65 - 199 [facility] mg/dL [facility] Comment: Supplemental ranges: [...] City/[facility]/[place] [address] (ABNORMAL) POCT Glucose (07/08/2017 1:57 AM EST) athologist Signature POC Glucose 288 (H) 65 - 199 [facility] mg[facility]dL [facility] Comment: Supplemental ranges: [...] City/[facility]/[place] [address] (ABNORMAL) POCT Glucose (07/08/2017 1:01 AM EST) athologist Signature POC Glucose 315 (H) 65 - 199 [facility] mg/dL [facility] Comment: Supplemental ranges: [...] City/[facility]/[place] [address] (ABNORMAL) BLOOD GAS 2 ARTERIAL (07/08/2017 12:09 AM EST) athologist Signature pH Art 7.26 7.35 - [facility] (Critical) 7.45 [facility] Comment: Noted by panel instrument repairer. pCO2 Art 41 35 - [address] [facility] pO2 Art 96 85 - 104 mmHg [facility] LABORATORY HCO3 Art 17.7 (L) 20.0 - 26.0 mmol/L [facility] BE Art -9.4 (L) -3.0 - 3.0 mmol/L [facility] Hgb Blood Gas 12.4 (L) 13.7 - 16.5 gm/dL [facility] O2HB Art 94.7 94.0 - 97.0 % [facility] COHB Art 0.2 % [facility] Comment: Noted by panel instrument repairer. FIO2 Art 40 % [facility] PF Ratio Art 240 [facility] Specimen Anatomical Collection Method Collection Time Receive d Time (Source) Location / / Volume Laterality Blood specimen Arterial Draw / 07/08/2017 12:09 2016 5:31 (specimen) Unknown AM EST AM EST Resulting Agency Comment Spec In Lab Samy Maldonado MD CHEMISTRY ORDERABLES Performing Organization Address City/State/ZIP [place] [address] (ABNORMAL) POCT Glucose (07/07/2017 10:56 PM EST) P athologist Signature POC Glucose 292 (H) 65 - 199 [facility] mg/dL [facility] Comment: Supplemental ranges: <140 mg/dL before meals <180 mg/dL all other times of the day Specimen Anatomical Collection Method Collection Time Receive d Time (Source) Location / / Volume Laterality Blood specimen 07/07/2017 10:56 7 (specimen) PM EST 10:56 PM EST Daphne Shahid MD POINT OF CARE TEST ORDERABLE S Performing Organization Address City/State/ZIP [place] [address] (ABNORMAL) BLOOD GAS 2 ARTERIAL (07/07/2017 10:04 PM EST) athologist Signature pH Art 7.22 7.35 - [facility] (Critical) 7.45 [facility] Comment: Noted by panel instrument repairer. pCO2 Art 42 35 - [address] [facility] pO2 Art 94 85 - 104 mmHg [facility]ORY HCO3 Art 16.9 (L) 20.0 - 26.0 mmol/L [facility] BE Art -10.7 (L) -3.0 - 3.0 mmol/L [facility] Hgb Blood Gas 13.0 (L) 13.7 - 16.5 gm/dL [facility] O2HB Art 93.8 (L) 94.0 - 97.0 % [facility] COHB Art 0.7 % [facility] Comment: Noted by panel instrument repairer. FIO2 Art 40 % [facility] PF Ratio Art 235 [facility] Specimen Anatomical Collection Method Collection Time Receive d Time (Source) Location / / Volume Laterality Blood specimen 07/07/2017 10:04 7 (specimen) PM EST 10:04 PM EST Daphne Shahid MD CHEMISTRY ORDERABLES Performing Organization Address City/[facility]/[place] [address] (ABNORMAL) Hemoglobin (07/07/2017 10:00 PM EST) P athologist Signature Hemoglobin 12.8 (L) 13.7 - [facility] 16.5 gm/dL [facility] Specimen Anatomical Collection Method Collection Time Receive d Time (Source) Location / / Volume Laterality Blood specimen 07/07/2017 10:00 7 (specimen) PM EST 10:13 PM EST Resulting Agency Comment Spec In Lab Yuan Webber MD HEMATOLOGY ORDERABLES Performing Organization Address City/[facility]/[place] [address] (ABNORMAL) Potassium (07/07/2017 10:00 PM EST) P athologist Signature Potassium 3.4 (L) 3.5 - 5.0 [facility] mmol/L [facility] Comment: Please note: [...] City/[facility]/ZIP Code Phon e Number [address] (ABNORMAL) POCT Glucose (07/07/2017 8:49 PM EST) P athologist Signature POC Glucose 241 (H) 65 - 199 [facility] mg/dL [facility] Comment: Supplemental ranges: [...] City/[facility]/[place] [address] Prepare Albumin 5% in [...] [facility]LOOD [facility] ORDERABLES Performing Organization Address City/[facility]/ZIP [facility] [place] [address] EKG 12 Lead (07/07/2017 7:17 PM EST) Component Value Ref Range Test Analysis Performed Pathologis t Method Time At Signature Ventricular rate 75 BPM MUSE SYSTEM Atrial Rate 75 BPM MUSE SYSTEM P-R Interval 168 ms MUSE SYSTEM QRS Duration 104 ms MUSE SYSTEM Q-T Interval 462 ms MUSE SYSTEM QTC Calculated 515 ms MUSE SYSTEM (Bezet) Calculated P [place] 52 degrees MUSE SYSTEM Calculated R [place] -40 degrees MUSE SYSTEM Calculated T [place] 39 degrees MUSE SYSTEM INTERPRETATION Normal sinus [...] athologist Signature pH Art 7.21 7.35 - [facility] (Critical) 7.45 [facility] Comment: Noted by panel instrument repairer. pCO2 Art 50 (H) 35 - [address] [facility] pO2 Art 238 (H) 85 - 104 mmHg [facility] HCO3 Art 19.8 (L) 20.0 - 26.0 mmol/L [facility] BE Art -8.1 (L) -3.0 - 3.0 mmol/L [facility] Hgb Blood Gas 12.8 (L) 13.7 - 16.5 gm/dL [facility] O2HB Art 97.5 (H) 94.0 - 97.0 % [facility] COHB Art 0.5 % [facility] Comment: Noted by panel instrument repairer. Please note: Patients with WBC [...] [facility] Comment: Noted by panel instrument repairer. FIO2 Art 100 % [facility] PF Ratio Art 238 [facility] Specimen Anatomical Collection Method Collection Time Receive d Time (Source) Location / / Volume Laterality Blood specimen 07/07/2017 6:57 PM 017 6:57 (specimen) EST PM EST Daphne Shahid MD CHEMISTRY ORDERABLES Performing Organization Address City/State/Z[place] [address] (ABNORMAL) BLOOD GAS 2 ARTERIAL (07/07/2017 5:31 PM EST) P athologist Signature pH Art 7.29 7.35 - [facility] (Critical) 7.45 [facility] Comment: Noted by panel instrument repairer. pCO2 Art 48 (H) 35 - [address] [facility] pO2 Art 137 (H) 85 - 104 mmHg [facility] HCO3 Art 22.4 20.0 - 26.0 mmol/L [facility] BE Art -4.3 (L) -3.0 - 3.0 mmol/L [facility] Hgb Blood Gas 10.0 (L) 13.7 - 16.5 gm/dL [facility] O2HB Art 97.3 (H) 94.0 - 97.0 % [facility] COHB Art 0.3 % [facility] [...] City/[facility]/ZIP [place] [address] Fibrinogen (07/07/2017 5:30 PM EST) athologist Signature Fibrinogen 224 180 - 510 [facility] mg/dL [facility] HOSPITAL LABORATORY Comment: Called by: JEET, Read [...] City/[facility]/[place] [address] APTT (07/07/2017 5:30 PM EST) athologist Signature PTT 30 25 - 35 sec [facility] Comment: The recommended therapeutic range for fu ll dose, unfractionated heparin at [facility] is 80 ? 114 [...] Address City/State/[place] [address] (ABNORMAL) Prothrombin Time (07/07/2017 [...] Address City/State/[place] [address] (ABNORMAL) Hemogram (07/07/2017 5:30 PM EST) athologist Signature WBC 19.6 (H) 4.0 - 9.5 [facility] x10(3)/[facility] LABORATORY RBC 3.08 (L) 4.58 - [facility] 5.54 [facility] x10(6)/[facility] LABORATORY Hemoglobin 9.2 (L) 13.7 - [facility] 16.5 gm/dL [facility] Hematocrit 28.0 (L) 40.5 - [facility] 48.5 % [facility] Comment: This result has been called to MONICA MORAN by DONALD GROSSMAN on 07 07 2017 at 1759, and has been read back. MCV 90.9 82.9 - 93.1 fL [facility] MCH 29.9 27.5 - 32.1 pg [facility] MCHC 32.9 32.0 - 35.7 gm/dL [facility] LABORATORY Platelets 155 145 - 357 x10(3)/[facility] LABORATORY RDWSD 46.5 (H) 36.0 - 45.0 [facility] LABORATORY RDWCV 14.1 (H) 11.4 - 13.8 % [facility] LABORATORY MPV 9.5 7.6 - 12.9 [facility] LABORATORY nRBC % Auto 0.0 % [facility] LABORATORY nRBC Abs Auto 0.000 0.000 - 0.000 x10(3)/[facility] LABORATORY Specimen Anatomical Collection Method Collection Time Receive d Time (Source) Location / / Volume Laterality Blood specimen 07/07/2017 5:30 PM 017 5:34 (specimen) EST PM EST Resulting Agency Comment Spec In Lab Yifan Perez MD HEMATOLOGY ORDERABLES Performing Organization Address City/State/Z[place] [address] Prepare Platelets, Apheresis (07/07/2017 5:00 PM EST) P athologist Signature Dispensed? Yes [facility] Specimen Anatomical Collection Method Collection Time Receive d Time (Source) Location / / Volume Laterality Blood specimen 07/07/2017 5:00 PM 017 4:58 (specimen) EST PM EST Daphne Shahid MD BLOOD BANK ORDERABLES Performing Organization Address City/State/[place] [address] Platelet count (07/07/2017 4:55 PM EST) P athologist Signature Platelets 177 145 - 357 [facility] x10(3)/[facility] LABORATORY Plat Immature 1.5 0.0 - 7.4 [place] % % [facility] Comment: Limitation of the Immature Platelet Frac tion (IPF)-May be less reliable when the platelet count is less than 44p452/u L due to statistical imprecision. The IPF [...] in a decreased state of production. References: [employer] The Clinical Value of the Immature Platelet Fraction (IPF) in Cell Recovery Document Number [id number] 12/2010 [employer] The Role of the Imm ature Platelet Fraction (IPF) in the Differential Diagnosis of Thrombocytopen ia, Document [id number] V05/07/08 P0514 Specimen Anatomical Collection Method Collection Time Receive d Time (Source) Location / / Volume Laterality Blood specimen 07/07/2017 4:55 PM 017 5:13 (specimen) EST PM EST Resulting Agency Comment Spec In Lab Daphne Shahid MD HEMATOLOGY ORDERABLES Performing Organization Address City/State/[place] [address] (ABNORMAL) Hemoglobin and Hematocrit, blood (07/07/2017 4:55 PM EST) P athologist Signature Hemoglobin 9.1 (L) 13.7 - 16.5 [facility] gm/dL [facility] Comment: This result [...] Address City/State/[place] [address] (ABNORMAL) BLOOD GAS 2 ARTERIAL (07/07/2017 4:38 PM EST) Analysis Performed At Patho logist Time Signature pH Art 7.37 7.35 - [facility] 7.45 [facility] pCO2 Art 44 35 - 45 [facility] mmHg [facility] pO2 Art 322 (H) 85 - 104 [facility] LABORATORY HCO3 Art 24.9 20.0 - [facility] 26.0 [facility] mmol/L [facility] LABORATORY BE Art -0.4 -3.0 - 3.0 [facility] mmol/L [facility] Hgb Blood Gas 10.1 (L) 13.7 - [facility] 16.5 gm/dL [facility] O2HB Art 98.7 (H) 94.0 - [facility] 97.0 % [facility] COHB Art 0.1 % [facility] [...] [facility] Comment: Noted by panel instrument repairer. Note: ??Total bilirubin higher than 20 m g/dL may lead to falsely low ionized calcium. CL Whole Blood 101 98 - 107 mmol/L [facility]OR[facility]ORY Gluc Whole Bld 295 (H) 65 - 199 mg/dL [facility] Comment: Diabetes: >=200 mg/dL plus symp toms. Lactate WB 1.7 0.5 - 2.2 mmol/L [facility] LAB[facility] Specimen Anatomical Collection Method Collection Time Receive d Time (Source) Location / / Volume Laterality Blood specimen 07/07/2017 4:38 PM 017 4:38 (specimen) EST PM EST Daphne Shahid MD CHEMISTRY ORDERABLES Performing Organization Address City/State/ZIP Code Phon e Number [place] [id number] HOSP[address] LAB[address]ORY Drive (ABNORMAL) BLOOD GAS 2 VENOUS (07/07/2017 4:06 PM EST) Analysis Performed At Patho logist Time Signature pH Cody 7.31 (L) 7.32 - [facility] 7.42 [facility] pCO2 Cody 47 41 - 51 [facility] LABORATORY pO2 Cody 53 (H) 25 - 40 [facility] LABORATORY HCO3 Cody 22.7 mmol/L [facility] BE Cody -3.7 mmol/L [facility] Hgb Blood Gas 10.2 (L) 13.7 - [facility] 16.5 gm/dL [facility] O2HB Cody 81.0 % [facility] Comment: Noted by panel instrument repairer. Note: ??Total bilirubin higher than 20 m g/dL may lead to falsely low ionized calcium. CL Whole Blood 100 98 - 107 mmol/L [facility] Gluc Whole Bld 231 (H) 65 - 199 mg/dL [facility] Comment: Diabetes: >=200 mg/dL plus symp toms Lactate WB 1.1 0.5 - 2.2 mmol/L [facility] LABOR[facility] BGas Source Venous [facility] LABORATORY Specimen Anatomical Collection Method Collection Time Receive d Time (Source) Location / / Volume Laterality Blood specimen 07/07/2017 4:06 PM 017 4:06 (specimen) EST PM EST Daphne Shahid MD CHEMISTRY ORDERABLES Performing Organization Address City/State/Z[place] [address] (ABNORMAL) BLOOD GAS 2 ARTERIAL (07/07/2017 4:05 PM EST) Analysis Performed At Patho logist Time Signature pH Art 7.36 7.35 - [facility] 7.45 [facility] pCO2 Art 40 35 - 45 [facility] LABORATORY pO2 Art 282 (H) 85 - 104 [facility] LABORATORY HCO3 Art 22.1 20.0 - [facility] 26.0 [facility] LABORATORY BE Art -3.4 (L) -3.0 - 3.0 [facility] mmol/L [facility] Hgb Blood Gas 10.2 (L) 13.7 - [facility] 16.5 gm/dL [facility] O2HB Art 98.4 (H) 94.0 - [facility] 97.0 % [facility] COHB Art 0.3 % [facility] [...] [facility] Comment: Noted by panel instrument repairer. Note: ??Total bilirubin higher than 20 m g/dL may lead to falsely low ionized calcium. CL Whole Blood 101 98 - 107 mmol/L [facility] Gluc Whole Bld 260 (H) 65 - 199 mg/dL [facility] Comment: Diabetes: >=200 mg/dL plus symp toms. Lactate WB 1.4 0.5 - 2.2 mmol/L [facility] LABOR[facility]ORY Specimen Anatomical Collection Method Collection Time Receive d Time (Source) Location / / Volume Laterality Blood specimen 07/07/2017 4:05 PM 017 4:05 (specimen) EST PM EST Daphne Shahid MD CHEMISTRY ORDERABLES Performing Organization Address City/State/Z[place] [address] (ABNORMAL) BLOOD GAS 2 ARTERIAL (07/07/2017 2:29 PM EST) Analysis Performed At Patho logist Time Signature pH Art 7.43 7.35 - [facility] 7.45 [facility] pCO2 Art 36 35 - 45 [facility] LABORATORY pO2 Art 221 (H) 85 - 104 [facility] LABORATORY HCO3 Art 23.2 20.0 - [facility] 26.0 [facility] mmol/[facility] LABORATORY BE Art -1.2 -3.0 - 3.0 [facility] mmol/L [facility] Hgb Blood Gas 13.9 13.7 - [facility] 16.5 gm/dL [facility] O2HB Art 97.8 (H) 94.0 - [facility] 97.0 % [facility] COHB Art 1.1 % [facility] [...] Lactate WB 1.5 0.5 - 2.2 mmol/L [facility] Specimen Anatomical Collection Method Collection Time Receive d Time (Source) Location / / Volume Laterality Blood specimen 07/07/2017 2:29 PM 017 2:29 (specimen) EST PM EST Daphne Shahid MD CHEMISTRY ORDERABLES Performing Organization Address City/State/Z[place] [address] Prepare Coag Factors (Non-Hemophilia) (07/07/2017 1:25 PM EST) athologist Signature Dispensed? Yes [facility] Specimen Anatomical Collection Method Collection Time Receive d Time (Source) Location / / Volume Laterality Blood specimen 07/07/2017 1:25 PM 017 1:21 (specimen) EST PM EST Daphne Shahid MD BLOOD BANK ORDERABLES Performing Organization Address City/[facility]/ZIP Code Phon e Number [address] Prepare RBC (07/07/2017 1:10 PM EST) athologist Signature Dispensed? Yes [facility] Specimen Anatomical Collection Method Collection Time Receive d Time (Source) Location / / Volume Laterality Blood specimen 07/07/2017 1:10 PM 017 1:05 (specimen) EST PM EST Daphne Shahid MD BLOOD BANK ORDERABLES Performing Organization Address City/[facility]/ZIP Code Phon e Number [address] POCT Glucose (07/07/2017 11:56 AM EST) athologist Signature POC Glucose 188 65 - 199 [facility] mg[facility] Comment: Supplemental [...] City/[facility]/Z[place] [address] POCT Glucose (07/07/2017 11:05 AM EST) athologist Signature POC Glucose 168 65 - 199 [facility] mg/dL [facility] Comment: Supplemental [...] City/[facility]/ZIP Code Phon e Number [address] POCT Glucose (07/07/2017 10:02 AM EST) athologist Signature POC Glucose 191 65 - 199 [place] ZHA[place]U mg/dL [facility] Comment: Supplemental ranges: [...] City/[facility]/ZIP Code Phon e Number [address] POCT Glucose (07/07/2017 7:53 AM EST) athologist Signature POC Glucose 178 65 - 199 [place] mg/dL [facility] Comment: Supplemental ranges: [...] City/[facility]/ZIP Code Phon e Number [address] POCT Glucose (07/07/2017 7:03 AM EST) athologist Signature POC Glucose 188 65 - 199 [place] mg/dL [facility] Comment: Supplemental ranges: <140 mg/dL before meals <180 mg/dL all other times of the day Specimen Anatomical Collection Method Collection Time Receive d Time (Source) Location / / Volume Laterality Blood specimen 07/07/2017 7:03 AM 017 7:03 (specimen) EST AM EST Daphne Shahid MD POINT OF CARE TEST ORDERABLE S Performing Organization Address City/State/ZIP Code Phon e Number [address] (ABNORMAL) POCT Glucose (07/07/2017 6:17 AM EST) athologist Signature POC Glucose 207 (H) 65 - 199 [facility] mg/dL [facility] Comment: Supplemental [...] Address City/State/ZIP Code Phon e Number [address] Differential, Automated (07/07/2017 5:15 AM EST) athologist [facility] Neutrophils % 69.7 % [facility]ORY Neutr Abs (ANC) 5.32 1.70 - [facility] 6.10 [facility] x10(3)/[facility] LABORATORY Lymphocytes % 16.3 % [facility]ORY Lymphocytes Abs 1.2 0.9 - 3.2 [facility] x10(3)/[facility] LABORATORY Monocytes % 10.5 % [facility]ORY Monocyte Abs 0.8 0.3 - 0.9 [facility] x10(3)/[facility] LABORATORY Eosinophils % 2.5 % [facility] Eosinophils Abs 0.2 0.0 - 0.4 [facility] x10(3)/[facility] LABORATORY Basophils % 0.7 % [facility] Basophils Abs 0.0 0.0 - 0.1 [facility] x10(3)/[facility] LABORATORY Immature Gran % 0.30 % [...] Melisa Gran Abs 0.02 0.00 - 0.04 x10(3)/[facility] LABORATORY Specimen Anatomical Collection Method Collection Time Receive d Time (Source) Location / / Volume Laterality Blood specimen 07/07/2017 5:15 AM 017 5:34 (specimen) EST AM EST Resulting Agency Comment Spec In Lab Daphne Shahid MD HEMATOLOGY ORDERABLES Performing Organization Address City/State/Z[place] [address] (ABNORMAL) Hemogram (07/07/2017 5:15 AM EST) Analysis Performed At Patho logist Time Signature WBC 7.6 4.0 - 9.5 [facility] x10(3)/[facility] LABORATORY RBC 4.82 4.58 - [facility] 5.54 [facility] x10(6)/[facility] LABORATORY Hemoglobin 14.4 13.7 - [facility] 16.5 gm/dL [facility] Hematocrit 42.1 40.5 - [facility] 48.5 % [facility] MCV 87.3 82.9 - [facility] 93.1 [facility] LABORATORY MCH 29.9 27.5 - [facility] 32.1 pg [facility] MCHC 34.2 32.0 - [facility] 35.7 gm/dL [facility] Platelets 188 145 - 357 [facility] x10(3)/[facility] LABORATORY RDWSD 45.1 (H) 36.0 - [facility] 45.0 [facility] LABORATORY RDWCV 14.3 (H) 11.4 - [facility] 13.8 % [facility] MPV 9.4 7.6 - 12.9 [facility] LABORATORY nRBC % Auto 0.0 % [facility] LABORATORY nRBC Abs Auto 0.000 0.000 - [facility] 0.000 [facility] x10(3)/[facility] LABORATORY Specimen Anatomical Collection Method Collection Time Receive d Time (Source) Location / / Volume Laterality Blood specimen 07/07/2017 5:15 AM 017 5:34 (specimen) EST AM EST Resulting Agency Comment Spec In Lab Daphne Shahid MD HEMATOLOGY ORDERABLES Performing Organization Address City/[facility]/[place] [address] (ABNORMAL) APTT (07/07/2017 5:15 AM EST) athologist Signature PTT 69 (H) 25 - 35 sec [facility] Comment: The recommended therapeutic range for fu ll dose, unfractionated heparin at [facility] is 80 ? 114 [...] City/[facility]/[place] [address] Magnesium (07/07/2017 5:15 AM EST) athologist Signature Magnesium 0.94 0.69 - 1.07 [facility] mmol/L [facility] Specimen Anatomical Collection Method Collection Time Receive d Time (Source) Location / / Volume Laterality Blood specimen 07/07/2017 5:15 AM 017 5:34 (specimen) EST AM EST Resulting Agency Comment Spec In Lab Daphne Shahid MD CHEMISTRY ORDERABLES Performing Organization Address City/[facility]/[place] [address] (ABNORMAL) Basic Metabolic Panel (non-fasting) (07/07/2017 5:15 AM EST) P athologist Signature Glucose Lvl 203 (H) 65 - 199 [facility] mg/dL [facility] Comment: Diabetes: >=200 [...] or in patients with acute kidney failure. [email or web address] Specimen Anatomical Collection Method Collection Time Receive d Time (Source) Location / / Volume Laterality Blood specimen 07/07/2017 5:15 AM 017 5:34 (specimen) EST AM EST Resulting Agency Comment Spec In Lab Daphne Shahid MD CHEMISTRY ORDERABLES Performing Organization Address City/State/Z[place] [address] (ABNORMAL) Cardiac Enzymes (LEB/CGP) (07/07/2017 5:15 AM EST) P athologist Signature Troponin-T 2.07 (H) 0.00 - [facility] 0.00 ng/mL [facility] Comment: The [...] additional sample may be indicated. Reference: [employer] Definition of Myocardial Infarction. Journal of the [employer] 2012;60:1581-98 CK, Total 88 0 - 200 unit/L [facility]ORY Specimen Anatomical Collection Method Collection Time Receive d Time (Source) Location / / Volume Laterality Blood specimen 07/07/2017 5:15 AM 017 5:34 (specimen) EST AM EST Resulting Agency Comment Spec In Lab Daphne Shahid MD CHEMISTRY ORDERABLES Performing Organization Address City/[facility]/ZIP Code Phon e Number [address] POCT Glucose (07/07/2017 5:01 AM EST) P athologist Signature POC Glucose 182 65 - 199 [facility] mg/dL [facility] Comment: Supplemental ranges: [...] City/[facility]/[place] [address] POCT Glucose (07/07/2017 4:08 AM EST) athologist Signature POC Glucose 199 65 - 199 [facility] mg/dL [facility] Comment: Supplemental ranges: <140 mg/dL before meals <180 mg/dL all other times of the day Specimen Anatomical Collection Method Collection Time Receive d Time (Source) Location / / Volume Laterality Blood specimen 07/07/2017 4:08 AM 017 4:08 (specimen) EST AM EST Daphne Shahid MD POINT OF CARE TEST ORDERABLE S Performing Organization Address City/State/[place] [address] POCT Glucose (07/07/2017 3:03 AM EST) athologist Signature POC Glucose 188 65 - 199 [facility] mg/dL [facility] Comment: Supplemental ranges: [...] City/[facility]/[place] [address] (ABNORMAL) POCT Glucose (07/07/2017 2:08 AM EST) athologist Signature POC Glucose 200 (H) 65 - 199 [facility] mg/dL [facility] Comment: Supplemental ranges: <140 mg/dL before meals <180 mg/dL all other times of the day Specimen Anatomical Collection Method Collection Time Receive d Time (Source) Location / / Volume Laterality Blood specimen 07/07/2017 2:08 AM 017 2:08 (specimen) EST AM EST Daphne Shahid MD POINT OF CARE TEST ORDERABLE S Performing Organization Address City/State/[place] [address] (ABNORMAL) POCT Glucose (07/07/2017 1:31 AM EST) P athologist Signature POC Glucose 209 (H) 65 - 199 [place] mg/dL [facility] Comment: Supplemental ranges: <140 mg/dL before meals <180 mg/dL all other times of the day Specimen Anatomical Collection Method Collection Time Receive d Time (Source) Location / / Volume Laterality Blood specimen 07/07/2017 1:31 AM 017 1:31 (specimen) EST AM EST Daphne Shahid MD POINT OF CARE TEST ORDERABLE S Performing Organization Address City/State/Z[place] [address] XR Chest PA or [...] Glucose 161 65 - 199 [facility] mg/dL [facility] Comment: Supplemental ranges: <140 mg/dL before meals <180 mg/dL all other times of the day Specimen Anatomical Collection Method Collection Time Receive d Time (Source) Location / / Volume Laterality Blood specimen 07/07/2017 12:07 12 7 (specimen) AM EST 12:07 AM EST Daphne Shahid MD POINT OF CARE TEST ORDERABLE S Performing Organization Address City/[facility]/[place] [address] (ABNORMAL) APTT (07/07/2017 12:00 AM EST) athologist Signature PTT 103 (H) 25 - 35 sec [facility] Comment: The recommended therapeutic range for fu ll dose, unfractionated heparin at [facility] is 80 ? 114 [...] City/[facility]/[place] [address] POCT Glucose (07/06/2017 9:55 PM EST) athologist Signature POC Glucose 109 65 - 199 [facility] mg/dL [facility] Comment: Supplemental [...] Address City/State/[place] [address] POCT Glucose (07/06/2017 9:04 PM EST) athologist Signature POC Glucose 120 65 - 199 [facility] mg/dL [facility] Comment: Supplemental [...] Address City/State/ZIP Code Phon e Number [address] POCT Glucose (07/06/2017 7:45 PM EST) athologist Signature POC Glucose 158 65 - [address] [facility] mg[facility]dL [facility] Comment: Supplemental ranges: <140 mg/dL before meals <180 mg/dL all other times of the day Specimen Anatomical Collection Method Collection Time Receive d Time (Source) Location / / Volume Laterality Blood specimen 07/06/2017 7:45 PM 017 7:45 (specimen) EST PM EST Daphne Shahid MD POINT OF CARE TEST ORDERABLE S Performing Organization Address City/State/ZIP Code Phon e Number [address] Potassium (07/06/2017 7:40 PM EST) athologist Signature Potassium 3.9 3.5 - 5.0 [facility] mmol/L [facility] Comment: Please note: [...] City/[facility]/[place] [address] (ABNORMAL) Cardiac Enzymes (LEB/CGP) (07/06/2017 7:40 PM EST) athologist Signature Troponin-T 2.27 (H) 0.00 - [facility] 0.00 ng/mL [facility] Comment: The [...] additional sample may be indicated. Reference: [employer] Definition of Myocardial Infarction. Journal of the [employer] [employer] 2012;60:1581-98 CK, Total 93 0 - 200 unit/L [facility] Specimen Anatomical Collection Method Collection Time Receive d Time (Source) Location / / Volume Laterality Blood specimen 07/06/2017 7:40 PM 017 7:52 (specimen) EST PM EST Resulting Agency Comment Spec In Lab Daphne Shahid MD CHEMISTRY ORDERABLES Performing Organization Address City/[facility]/[place] [address] (ABNORMAL) POCT Glucose (07/06/2017 7:13 PM EST) athologist Signature POC Glucose 200 (H) 65 - 199 [facility] mg/dL [facility] Comment: Supplemental ranges: [...] City/[facility]/[place] [address] HOSPITAL [address] Drive (ABNORMAL) APTT (07/06/2017 6:15 PM EST) athologist Signature PTT 94 (H) 25 - 35 sec [facility] LABORATORY Comment: The recommended therapeutic range for fu ll dose, unfractionated heparin at [facility] is 80 ? 114 [...] City/[facility]/[place] [address] (ABNORMAL) POCT Glucose (07/06/2017 6:03 PM EST) athologist Signature POC Glucose 236 (H) 65 - 199 [facility]dL [facility] Comment: Supplemental [...] Address City/State/[place] [address] (ABNORMAL) POCT Glucose (07/06/2017 5:01 PM EST) athologist Signature POC Glucose 235 (H) 65 - 199 [facility] mg/dL [facility] Comment: Supplemental ranges: <140 mg/dL before meals <180 mg/dL all other times of the day Specimen Anatomical Collection Method Collection Time Receive d Time (Source) Location / / Volume Laterality Blood specimen 07/06/2017 5:01 PM 017 5:01 (specimen) EST PM EST Daphne Shahid MD POINT OF CARE TEST ORDERABLE S Performing Organization Address City/State/[place] [address] (ABNORMAL) POCT Glucose (07/06/2017 4:06 PM EST) athologist Signature POC Glucose 202 (H) 65 - 199 [facility] mg/dL [facility] Comment: Supplemental ranges: <140 mg/dL before meals <180 mg/dL all other times of the day Specimen Anatomical Collection Method Collection Time Receive d Time (Source) Location / / Volume Laterality Blood specimen 07/06/2017 4:06 PM 017 4:06 (specimen) EST PM EST Daphne Shahid MD POINT OF CARE TEST ORDERABLE S Performing Organization Address City/State/[place] [address] POCT Glucose (07/06/2017 2:59 PM EST) athologist Signature POC Glucose 178 65 - 199 [facility] mg/dL [facility] Comment: Supplemental ranges: <140 mg/dL before meals <180 mg/dL all other times of the day Specimen Anatomical Collection Method Collection Time Receive d Time (Source) Location / / Volume Laterality Blood specimen 07/06/2017 2:59 PM 017 2:59 (specimen) EST PM EST Daphne Shahid MD POINT OF CARE TEST ORDERABLE S Performing Organization Address City/State/[place] [address] (ABNORMAL) Cardiac Enzymes (LEB/CGP) (07/06/2017 2:10 PM EST) athologist Signature Troponin-T 2.34 (H) 0.00 - [place] [facility] 0.00 ng/mL [...] additional sample may be indicated. Reference: [place] Definition of Myocardial Infarction. Journal of the [place] [employer] 2012;60:1581-98 CK, Total 101 0 - 200 unit/L [facility] LABORATORY Specimen Anatomical Collection Method Collection Time Receive d Time (Source) Location / / Volume Laterality Blood specimen 07/06/2017 2:10 PM 017 2:26 (specimen) EST PM EST Resulting Agency Comment Spec In Lab Daphne Shahid MD CHEMISTRY ORDERABLES Performing Organization Address City/State/ZIP [place] [address] [facility] [address] POCT Glucose (07/06/2017 2:08 PM EST) athologist Signature POC Glucose 192 65 - 199 [facility] mg/dL [facility] Comment: Supplemental ranges: <140 mg/dL before meals <180 mg/dL all other times of the day Specimen Anatomical Collection Method Collection Time Receive d Time (Source) Location / / Volume Laterality Blood specimen 07/06/2017 2:08 PM 017 2:08 (specimen) EST PM EST Daphne Shahid MD POINT OF CARE TEST ORDERABLE S Performing Organization Address City/State/[place] [address] POCT Glucose (07/06/2017 1:04 PM EST) P athologist Signature POC Glucose 162 65 - 199 [place] [facility] mg/dL [facility] Comment: Supplemental ranges: [...] City/[facility]/[place] [address] POCT Glucose (07/06/2017 12:05 PM EST) P athologist Signature POC Glucose 196 65 - 199 [facility] mg/dL [facility] Comment: Supplemental ranges: <140 mg/dL before meals <180 mg/dL all other times of the day Specimen Anatomical Collection Method Collection Time Receive d Time (Source) Location / / Volume Laterality Blood specimen 07/06/2017 12:05 7 (specimen) PM EST 12:05 PM EST Daphne Shahid MD POINT OF CARE TEST ORDERABLE S Performing Organization Address City/State/[place] [address] EKG 12 Lead (07/06/2017 12:00 PM EST) Component Value Ref Range Test Analysis Performed Pathologis t Method Time At Signature Ventricular rate 91 BPM MUSE SYSTEM Atrial Rate 91 BPM MUSE SYSTEM P-R Interval 140 ms MUSE SYSTEM QRS Duration 94 ms MUSE SYSTEM Q-T Interval 394 ms MUSE SYSTEM QTC Calculated 484 ms MUSE SYSTEM (Bezet) Calculated P [place] 36 degrees MUSE SYSTEM Calculated R [place] -19 degrees MUSE SYSTEM Calculated T [place] 104 degrees MUSE SYSTEM INTERPRETATION Normal sinus rhythm MUSE SYSTEM 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) ST & T wave abnormality, consider lateral ischemia Abnormal ECG When compared with ECG of 05-JUL-2017 20:39, No significant change was found Confirmed by MD Luci, Taurus Braun ([id number]) on 07/06/2017 5:07:33 PM Specimen Anatomical Collection Method Collection Time Receive d Time (Source) Location / / Volume Laterality 07/06/2017 12:00 07/06/2017 5:07 PM EST PM EST Daphne Shahid MD ECG ORDERABLES Performing Organization Address City/State/ZIP Code Phon e Number MUSE SYSTEM ABORH Recheck Status (07/06/2017 12:00 PM EST) [facility] Method Time Signature ABORH Type Completed [facility] LABORATORY Specimen Anatomical Collection Method Collection Time Receive d Time (Source) Location / / Volume Laterality Blood specimen 07/06/2017 12:00 7 (specimen) PM EST 12:24 PM EST Resulting Agency Comment Spec In Lab Daphne Shahid MD BLOOD BANK ORDERABLES Performing Organization Address City/[facility]/[place] [address] Antibody screen (07/06/2017 12:00 PM EST) [facility] Method Time Signature Ab Screen Negative [facility] LABORATORY Expires at 07/09/2017 [facility] [id number] on: [facility] Specimen Anatomical Collection Method Collection Time Receive d Time (Source) Location / / Volume Laterality Blood specimen 07/06/2017 12:00 7 (specimen) PM EST 12:24 PM EST Resulting Agency Comment Spec In Lab Daphne Shahid MD BLOOD BANK ORDERABLES Performing Organization Address City/[facility]/[place] [address] ABO/Rh Typing (07/06/2017 12:00 [...] City/[facility]/[place] [address] Prothrombin Time (07/06/2017 11:24 AM EST) athologist Signature PT 13.3 11.8 - 14.0 [facility] LABORATORY INR 1.0 0.9 - 1.1 [facility] [...] City/[facility]/[place] [address] (ABNORMAL) APTT (07/06/2017 11:24 AM EST) athologist Signature PTT 52 (H) 25 - 35 sec [facility] LAB[facility]ATORY Comment: The recommended therapeutic range for fu ll dose, unfractionated heparin at [facility] is 80 ? 114 [...] Address City/State/ZIP Code Phon e Number [address] POCT Glucose (07/06/2017 11:02 AM EST) P athologist Signature POC Glucose 187 65 - 199 [place] mg/dL [facility] Comment: Supplemental ranges: [...] City/[facility]/ZIP Code Phon e Number [address] POCT Glucose (07/06/2017 10:18 AM EST) athologist Signature POC Glucose 193 65 - 199 [facility] mg[facility]dL [facility] Comment: Supplemental ranges: <140 mg/dL before meals <180 mg/dL all other times of the day Specimen Anatomical Collection Method Collection Time Receive d Time (Source) Location / / Volume Laterality Blood specimen 07/06/2017 10:18 7 (specimen) AM EST 10:18 AM EST Daphne Shahid MD POINT OF CARE TEST ORDERABLE S Performing Organization Address City/State/ZIP Code Phon e Number [address] POCT Glucose (07/06/2017 9:25 AM EST) P athologist Signature POC Glucose 182 65 - 199 [facility] mg/dL [facility] Comment: Supplemental ranges: <140 mg/dL before meals <180 mg/dL all other times of the day Specimen Anatomical Collection Method Collection Time Receive d Time (Source) Location / / Volume Laterality Blood specimen 07/06/2017 9:25 AM 017 9:25 (specimen) EST AM EST Daphne Shahid MD POINT OF CARE TEST ORDERABLE S Performing Organization Address City/State/ZIP Code Phon e Number [address] (ABNORMAL) Cardiac Enzymes (LEB/CGP) [...] additional sample may be indicated. Reference: [place] Definition of Myocardial Infarction. Journal of the [place] [employer] 2012;60:1581-98 CK, Total 124 0 - 200 unit/L [facility] LABORATORY Specimen Anatomical Collection Method Collection Time Receive d Time (Source) Location / / Volume Laterality Blood specimen 07/06/2017 8:10 AM 017 8:23 (specimen) EST AM EST Resulting Agency Comment Spec In Lab Daphne Shahid MD CHEMISTRY ORDERABLES Performing Organization Address City/[facility]/ZIP Code Phon e Number [address] Magnesium (07/06/2017 8:10 AM EST) athologist Signature Magnesium 0.84 0.69 - 1.07 [facility] mmol/L [facility] Specimen Anatomical Collection Method Collection Time Receive d Time (Source) Location / / Volume Laterality Blood specimen 07/06/2017 8:10 AM 017 8:21 (specimen) EST AM EST Resulting Agency Comment Spec In Lab Daphne Shahid MD CHEMISTRY ORDERABLES Performing Organization Address City/State/ZIP [place] [address] (ABNORMAL) Basic Metabolic Panel (non-fasting) (07/06/2017 8:10 AM EST) P athologist Signature Glucose Lvl 199 65 - 199 [facility] mg/dL [facility] Comment: Diabetes: >=200 [...] or in patients with acute kidney failure. [email or web address] Specimen Anatomical Collection Method Collection Time Receive d Time (Source) Location / / Volume Laterality Blood specimen 07/06/2017 8:10 AM 017 8:21 (specimen) EST AM EST Resulting Agency Comment Spec In Lab Daphne Shahid MD CHEMISTRY ORDERABLES Performing Organization Address City/[facility]/ZIP Code Phon e Number [address] POCT Glucose (07/06/2017 7:34 AM EST) P athologist Signature POC Glucose 198 65 - 199 [facility]dL [facility] Comment: Supplemental ranges: [...] City/[facility]/ZIP Code Phon e Number [address] POCT Glucose (07/06/2017 7:03 AM EST) athologist Signature POC Glucose 181 65 - 199 [facility] mg[facility]dL [facility] Comment: Supplemental ranges: [...] City/[facility]/[place] [address] XR Chest PA or [...] Signature POC Glucose 172 65 - 199 [facility] mg/dL [facility] Comment: Supplemental ranges: <140 mg/dL before meals <180 mg/dL all other times of the day Specimen Anatomical Collection Method Collection Time Receive d Time (Source) Location / / Volume Laterality Blood specimen 07/06/2017 6:21 AM 017 6:21 (specimen) EST AM EST Daphne Shahid MD POINT OF CARE TEST ORDERABLE S Performing Organization Address City/State/[place] [address] POCT Glucose (07/06/2017 5:08 AM EST) athologist Signature POC Glucose 154 65 - 199 [place] mg/dL [facility] Comment: Supplemental ranges: <140 mg/dL before meals <180 mg/dL all other times of the day Specimen Anatomical Collection Method Collection Time Receive d Time (Source) Location / / Volume Laterality Blood specimen 07/06/2017 5:08 AM 017 5:08 (specimen) EST AM EST Daphne Shahid MD POINT OF CARE TEST ORDERABLE S Performing Organization Address City/State/ZIP Code Phon e Number [address] POCT Glucose (07/06/2017 4:05 AM EST) athologist Signature POC Glucose 142 65 - 199 [facility]dL [facility] Comment: Supplemental ranges: <140 mg/dL before meals <180 mg/dL all other times of the day Specimen Anatomical Collection Method Collection Time Receive d Time (Source) Location / / Volume Laterality Blood specimen 07/06/2017 4:05 AM 017 4:05 (specimen) EST AM EST Daphne Shahid MD POINT OF CARE TEST ORDERABLE S Performing Organization Address City/State/ZIP Code Phon e Number [address] POCT Glucose (07/06/2017 3:00 AM EST) athologist Signature POC Glucose 116 65 - 199 [facility] mg/dL [facility] Comment: Supplemental ranges: <140 mg/dL before meals <180 mg/dL all other times of the day Specimen Anatomical Collection Method Collection Time Receive d Time (Source) Location / / Volume Laterality Blood specimen 07/06/2017 3:00 AM 017 3:00 (specimen) EST AM EST Daphne Shahid MD POINT OF CARE TEST ORDERABLE S Performing Organization Address City/State/[place] [address] Potassium (07/06/2017 2:20 AM EST) athologist Signature Potassium 3.9 3.5 - 5.0 [facility] mmol/L [facility] Comment: Please note: [...] Organization Address City/State/[place] [address] Differential, Automated (07/06/2017 2:20 AM EST) athologist Signature Neutrophils % 72.9 % [facility] LABORATORY Neutr Abs (ANC) 5.53 1.70 - [facility] 6.10 [facility] x10(3)/[facility] LABORATORY Lymphocytes % 16.4 % [facility] LABORATORY Lymphocytes Abs 1.2 0.9 - 3.2 [facility] x10(3)/[facility] LABORATORY Monocytes % 9.4 % [facility] LABORATORY Monocyte Abs 0.7 0.3 - 0.9 [facility] x10(3)/[facility] LABORATORY Eosinophils % 0.5 % [facility] LABORATORY Eosinophils Abs 0.0 0.0 - 0.4 [facility] x10(3)/[facility] LABORATORY Basophils % 0.4 % [facility] LABORATORY Basophils Abs 0.0 0.0 - 0.1 [facility] x10(3)/[facility] LABORATORY Immature Gran % 0.40 % [...] Melisa Gran Abs 0.03 0.00 - 0.04 x10(3)/[facility] MAR Y [facility] LABORATORY Specimen Anatomical Collection Method Collection Time Receive d Time (Source) Location / / Volume Laterality Blood specimen 07/06/2017 2:20 AM 017 2:33 (specimen) EST AM EST Resulting Agency Comment Spec In Lab Daphne Shahid MD HEMATOLOGY ORDERABLES Performing Organization Address City/State/[place] [address] (ABNORMAL) Hemogram (07/06/2017 2:20 AM EST) Analysis Performed At Patho logist Time Signature WBC 7.6 4.0 - 9.5 [facility] x10(3)/[facility] LABORATORY RBC 4.52 (L) 4.58 - [facility] 5.54 [facility] x10(6)/[facility] LABORATORY Hemoglobin 13.4 (L) 13.7 - [facility] 16.5 gm/dL [facility] Hematocrit 39.7 (L) 40.5 - [facility] 48.5 % [facility] MCV 87.8 82.9 - [facility] 93.1 [facility] LABORATORY MCH 29.6 27.5 - [facility] 32.1 pg [facility] MCHC 33.8 32.[address] [facility] 35.7 gm/dL [facility] Platelets 189 145 - 357 [facility] x10(3)/[facility] LABORATORY RDWSD 45.6 (H) 36.0 - [facility] 45.0 [facility] LABORATORY RDWCV 14.3 (H) 11.4 - [facility] 13.8 % [facility] MPV 9.1 7.6 - 12.9 [facility] LABORATORY nRBC % Auto 0.0 % [facility] nRBC Abs Auto 0.000 0.000 - [facility] 0.000 [facility] x10(3)/[facility] LABORATORY Specimen Anatomical Collection Method Collection Time Receive d Time (Source) Location / / Volume Laterality Blood specimen 07/06/2017 2:20 AM 017 2:33 (specimen) EST AM EST Resulting Agency Comment Spec In Lab Daphne Shahid MD HEMATOLOGY ORDERABLES Performing Organization Address City/[facility]/[place] [address] (ABNORMAL) APTT (07/06/2017 2:20 AM EST) athologist Signature PTT 52 (H) 25 - 35 sec [facility] Comment: The recommended therapeutic range for fu ll dose, unfractionated heparin at [facility] is 80 ? 114 [...] City/[facility]/[place] [address] POCT Glucose (07/06/2017 2:20 AM EST) athologist [facility] POC Glucose 115 65 - 199 [facility] mg/dL [facility] Comment: Supplemental ranges: [...] City/[facility]/[place] [address] (ABNORMAL) Cardiac Enzymes (LEB/CGP) (07/06/2017 2:20 AM EST) athologist [facility] Troponin-T 2.13 (H) 0.00 - [facility] 0.00 ng/mL [facility] Comment: The [...] additional sample may be indicated. Reference: [place] Definition of Myocardial Infarction. Journal of the [place] [employer] 2012;60:1581-98 CK, Total 129 0 - 200 unit/L [facility] LABORATORY Specimen Anatomical Collection Method Collection Time Receive d Time (Source) Location / / Volume Laterality Blood specimen 07/06/2017 2:20 AM 017 2:33 (specimen) EST AM EST Resulting Agency Comment Spec In Lab Daphne Shahid MD CHEMISTRY ORDERABLES Performing Organization Address City/State/Z[place] [address] (ABNORMAL) Hemoglobin A1c (07/06/2017 [...] [id number] Est Avg Gluc See note mg/dL [place] [facility] LABORATORY Comment: Estimated Average Glucose [...] hemoglobinopathies. Additional resources are available on [facility] ADA website. Macario HAMMOND, Ruthann J, Deysi R, et al. ??Tr anslating the A1C assay into estimated average glucose values. ??Diabetes Care 2008:31(8):9800-1611. Specimen Anatomical Collection Method Collection Time Receive d Time (Source) Location / / Volume Laterality Blood specimen 07/06/2017 2:20 AM 017 2:34 (specimen) EST AM EST Resulting Agency Comment Spec In Lab Daphne Shahid MD CHEMISTRY ORDERABLES Performing Organization Address City/State/Z[place] [address] (ABNORMAL) Lipid Panel (07/06/2017 2:20 AM EST) [facility] gist Method Time Signature Chol, Total 150 <=239 [facility] mg/dL [facility] LABORATORY Triglycerides 129 <=199 [place] mg/dL [facility] HDL 32 (L) >=40 [place] mg/dL [facility] LDL Cholesterol 92 <=190 [place] mg/dL [facility] Chol/HDL Ratio 4.7 ratio [facility] LABORATORY Lipid See Note [place] Interpretation [facility] LAB[facility] Comment: Lipid management should be guided by a p atient? s ASCVD risk, goals and preferences. ACC/AHA Guidelines recommend high intens ity statin if clinical ASCVD or LDL greater than or equal to 190 mg/dL. [email or web address] Adults aged 40-75 with LDL 70-189 mg/dL should have their 10 year ASCVD risk estimated with the ACC/AHA ASCVD risk es timator http://tools.acc.org/BUNVK-Kfhf-Mdexghum r/ Statin should be discussed if risk [...] Organization Address City/State/Z[place] [address] POCT Glucose (07/06/2017 1:09 AM EST) athologist Signature POC Glucose 121 65 - 199 [facility] mg/dL [facility] Comment: Supplemental ranges: <140 mg/dL before meals <180 mg/dL all other times of the day Specimen Anatomical Collection Method Collection Time Receive d Time (Source) Location / / Volume Laterality Blood specimen 07/06/2017 1:09 AM 017 1:09 (specimen) EST AM EST Daphne Shahid MD POINT OF CARE TEST ORDERABLE S Performing Organization Address City/State/ZIP Code Phon e Number [address] POCT Glucose (07/06/2017 12:06 AM EST) P athologist Signature POC Glucose 147 65 - 199 [place] [facility] mg/dL [facility] Comment: Supplemental ranges: [...] City/[facility]/[place] [address] (ABNORMAL) POCT Glucose (07/05/2017 10:56 PM EST) P athologist Signature POC Glucose 200 (H) 65 - 199 [facility] mg[facility]dL [facility] Comment: Supplemental ranges: <140 mg/dL before meals <180 mg/dL all other times of the day Specimen Anatomical Collection Method Collection Time Receive d Time (Source) Location / / Volume Laterality Blood specimen 07/05/2017 10:56 7 (specimen) PM EST 10:56 PM EST Daphne Shahid MD POINT OF CARE TEST ORDERABLE S Performing Organization Address City/State/[place] [address] (ABNORMAL) POCT Glucose (07/05/2017 10:05 PM EST) P athologist Signature POC Glucose 225 (H) 65 - 199 [facility] mg/dL [facility] Comment: Supplemental ranges: <140 mg/dL before meals <180 mg/dL all other times of the day Specimen Anatomical Collection Method Collection Time Receive d Time (Source) Location / / Volume Laterality Blood specimen 07/05/2017 10:05 7 (specimen) PM EST 10:05 PM EST Daphne Shahid MD POINT OF CARE TEST ORDERABLE S Performing Organization Address City/State/[place] [address] (ABNORMAL) POCT Glucose (07/05/2017 9:02 PM EST) P athologist Signature POC Glucose 301 (H) 65 - 199 [facility] mg/dL [facility] Comment: Supplemental ranges: <140 mg/dL before meals <180 mg/dL all other times of the day Specimen Anatomical Collection Method Collection Time Receive d Time (Source) Location / / Volume Laterality Blood specimen 07/05/2017 9:02 PM 017 9:02 (specimen) EST PM EST Daphne Shahid MD POINT OF CARE TEST ORDERABLE S Performing Organization Address City/State/[place] [address] XR Chest PA or [...] 474 ms MUSE SYSTEM (Bezet) Calculated P [place] 50 degrees MUSE SYSTEM Calculated R [place] -28 degrees MUSE SYSTEM Calculated T [place] 90 degrees MUSE SYSTEM INTERPRETATION Sinus tachycardia [...] Neutr Abs (ANC) 9.08 (H) 1.70 - [facility] 6.10 [facility] x10(3)/[facility] L LABORATORY Lymphocytes % 7.0 % [facility] LABORATORY Lymphocytes Abs 0.7 (L) 0.9 - 3.2 [facility] x10(3)/[facility] LABORATORY Monocytes % 3.7 % [facility] LABORATORY Monocyte Abs 0.4 0.3 - 0.9 [facility] x10(3)/[facility] LABORATORY Eosinophils % 0.1 % [facility] LABORATORY Eosinophils Abs 0.0 0.0 - 0.4 [facility] x10(3)/[facility] LABORATORY Basophils % 0.2 % [facility] LABORATORY Basophils Abs 0.0 0.0 - 0.1 [facility] x10(3)/[facility] LABORATORY Immature Gran % 0.60 % [...] Gran Abs 0.06 (H) 0.00 - 0.04 x10(3)/[facility] LABORATORY Specimen Anatomical Collection Method Collection Time Receive d Time (Source) Location / / Volume Laterality Blood specimen 07/05/2017 8:20 PM 017 8:27 (specimen) EST PM EST Resulting Agency Comment Spec In Lab Daphne Shahid MD HEMATOLOGY ORDERABLES Performing Organization Address City/State/[place] [address] (ABNORMAL) Hemogram (07/05/2017 8:20 PM EST) Analysis Performed At Patho logist Time Signature WBC 10.3 (H) 4.0 - 9.5 [facility] x10(3)/[facility] LABORATORY RBC 4.64 4.58 - [facility] 5.54 [facility] x10(6)/[facility] LABORATORY Hemoglobin 14.1 13.7 - [facility] 16.5 gm/dL [facility] LABORATORY Hematocrit 40.8 40.5 [facility] 48.5 % [facility] MCV 87.9 82.9 - [facility] 93.1 fL [facility]ORATORY MCH 30.4 27.5 - [facility] 32.1 pg [facility] MCHC 34.6 32.0 - [place] [facility] 35.7 gm/dL [facility] LABORATORY Platelets 204 145 - 357 [facility] x[facility](3[facility] LABORATORY RDWSD 46.1 (H) 36.0 - [place] 45.0 [facility] LABORATORY RDWCV 14.5 (H) 11.4 - [place] 13.8 % [facility] LABORATORY MPV 9.7 7.6 - 12.9 [place] [facility] LABORATORY nRBC % Auto 0.0 % [facility] LABORATORY nRBC Abs Auto 0.000 0.000 - [place] 0.000 [facility] x10(3)/[facility] LABORATORY Specimen Anatomical Collection Method Collection Time Receive d Time (Source) Location / / Volume Laterality Blood specimen 07/05/2017 8:20 PM 017 8:27 (specimen) EST PM EST Resulting Agency Comment Spec In Lab Daphne Shahid MD HEMATOLOGY ORDERABLES Performing Organization Address City/[facility]/[place] [address] APTT (07/05/2017 8:20 PM EST) P athologist Signature PTT 32 25 - 35 sec [facility] LABORATORY Comment: The recommended therapeutic range for fu ll dose, unfractionated heparin at [facility] is 80 ? 114 [...] Address City/State/[place] [address] (ABNORMAL) Cardiac Enzymes (LEB/CGP) (07/05/2017 8:20 PM EST) P athologist Signature Troponin-T 2.11 (H) 0.00 - [facility] 0.00 ng/mL [facility] LABORATORY Comment: The [...] additional sample may be indicated. Reference: Third Birch Tree Definition of Myocardial Infarction. Journal of the [place] College of Cardiology 2012;60:1581-98 CK, Total 149 0 - 200 unit/L [facility] LABORATORY Specimen Anatomical Collection Method Collection Time Receive d Time (Source) Location / / Volume Laterality Blood specimen 07/05/2017 8:20 PM 017 8:27 (specimen) EST PM EST Resulting Agency Comment Spec In Lab Daphne Shahid MD CHEMISTRY ORDERABLES Performing Organization Address City/[facility]/ZIP [place] [address] (ABNORMAL) Magnesium (07/05/2017 8:20 PM EST) P athologist Signature Magnesium 0.68 (L) 0.69 - 1.07 [facility] mmol/L [facility] LABORATORY Specimen Anatomical Collection Method Collection Time Receive d Time (Source) Location / / Volume Laterality Blood specimen 07/05/2017 8:20 PM 017 8:27 (specimen) EST PM EST Resulting Agency Comment Spec In Lab Daphne Shahid MD CHEMISTRY ORDERABLES Performing Organization Address City/State/[place] [address] (ABNORMAL) Basic Metabolic Panel (non-fasting) (07/05/2017 8:20 PM EST) P athologist Signature Glucose Lvl 321 (H) 65 - 199 [facility] mg/dL [facility] LABORATORY Comment: Diabetes: >=200 [...] or in patients with acute kidney failure. [email or web address]/DHnkdep [email or web address] Specimen Anatomical Collection Method Collection Time Receive d Time (Source) Location / / Volume Laterality Blood specimen 07/05/2017 8:20 PM 017 8:27 (specimen) EST PM EST Resulting Agency Comment Spec In Lab Daphne Shahid MD CHEMISTRY ORDERABLES Performing Organization Address City/State/ZIP Code Phon e Number [address] (ABNORMAL) POCT Glucose (07/05/2017 7:32 PM EST) P athologist Signature POC Glucose 296 (H) 65 - 199 [facility] mg/dL [facility] LABOR[facility]ORY Comment: Supplemental ranges: <140 mg/dL before meals <180 mg/dL all other times of the day Specimen Anatomical Collection Method Collection Time Receive d Time (Source) Location / / Volume Laterality Blood specimen 07/05/2017 7:32 PM 017 7:32 (specimen) EST PM EST Daphne Shahid MD POINT OF CARE TEST ORDERABLE S Performing Organization Address City/State/ZIP Code Phon e Number [address] CARDIAC CATHETERIZATION (07/05/2017 6:47 PM EST) Specimen (Source) Anatomical Location Collection Method / Collectio n Time Received Time / Laterality Volume Narrative CARDIOMAC SYSTEM - 07/05/2017 7:27 PM ES T ?[facility] ? Cardiac Cathete rization/Intervention Report ? Patient Name: Natalya, Gregory ? Procedure Date: 07/05/2017 ? A #: [id number] ? Primary Physician: Clarisa, Jet T ? Case #: [id number] ? File Name: [id number] ? Catheterization Order Number: [id number] ? [facility] ? Final Report [place], [place] ? Patient Name: ? Gregory Natalya ?ID#: ?[id number] ? : ?1945 ? Procedure Date: ? [...] presented with: non -STEMI (w/i 7 days). [place] ?Cardiovascular Society angina c lass was IV. [...] site angio graphy and IABP insertion in pathology lab technician. ? Jet Mckenna, M.D. ? Electronically Signed by: Jet Robbins s, M.D. ? Report Finalized: 07/05/2017 ??19:23 ? Report Last Ammended: 10/26/2017 ??10:29 ? Procedure Note Jet Mckenna MD - 10/26/2017Formatt ing of this note might be different from the original. [facility] Cardiac Catheterization/Intervention Re port Patient Name: Gregory Hoang Procedure Date: 07/05/2017 A #: [id number] Primary Physician: Jet Mckenna Case #: [id number] File Name: [id number] Catheterization Order Number: [id number] [facility] Final Report [place], [place] Patient Name: Gregory Hoang ID#: [id number] : 1945 Procedure Date: July 05, [...] presented with: non-STEMI ( w/i 7 days). [place] [employer] Society angina class was IV. No [...] site angiograph y and IABP insertion in pathology lab technician. Jet Mckenna M.D. Electronically Signed [...] Mccollum ? (Age): 1945(72y) Med Rec#: ? [id number] ?Sex: ?M ? Site Loc: ? [facility] ?Ht / Wt: ??173(cm)/86(kg) Pt. Loc: ?[facility] ? BSA: ?2 Study Date: ?? 07/05/2017 ?Pt. Type: Inpatient Tape: ? Referring: Daphne Shahid ([id number]) Referring: MANDA ALCANTAR Reading: Blade Preston ([id number]) Dedicated Driver: Dayami Paula BA, [facility] [...] E-wave Vmax ?0.8 ?m/sec ? MV deceleration [id number] ?msec ? MV A-wave Vmax ?0.8 ?m/sec [...] ? Mid-Inferior ?Akinetic ? Mid-Inferoseptal ?Hypokinetic ? [place]-Septal ? Akinetic ? [place]-Anterior ? Hypokinetic ? [place]-Lateral ?Hypokinetic ? [place]-Inferior ? Akinetic ? [place]-Tip ?Akinetic ? This report has been electronically sign ed by: _ Blade Preston MD ? 07/06/2017 08 :53:15 Images reviewed and interpretation verif ied [facility] Cardiac Ultrasound Laboratory Procedure Note Blade Preston MD - 07/06/2017Formatt ing of this note might be different from the original. Procedure: Transthoracic Echocardiogram Patient: NATALYA MCBRIDE(Age): [birth year]72y) Med Rec#: [id number] Sex: M Site Loc: [facility] Ht / Wt: 173(cm)/86(kg) Pt. Loc: [facility] BSA: 2 Study Date: 07/05/2017 Pt. Type: Inpatie nt Tape: Referring: Daphne Shahid ([id number]) Referring: MANDA ALCANTAR Reading: Blade Preston ([id number]) Dedicated Driver: Dayami Paula BA, [facility] [...] MV E-wave Vmax 0.8 m/sec MV deceleration [id number] msec MV A-wave Vmax 0.8 m/sec MV [...] Hypokinetic Mid-Posterolateral Hypokinetic Mid-Inferior Akinetic Mid-Inferoseptal Hypokinetic [place]-Septal Akinetic [place]-Anterior Hypokinetic [place]-Lateral Hypokinetic [place]-Inferior Akinetic [place]-Tip Akinetic This report has been electronically sign ed by: _ Blade Preston MD 07/06/2017 08:53:15 Images reviewed and interpretation verif ied [facility] Cardiac Ultrasound Laboratory Daphne Shahid MD ECHO ORDERABLES Performing Organization Address City/State/ZIP Code Phon e Number [facility] Differential, Automated (07/05/2017 4:55 PM EST) P athologist Signature Neutrophils % 77.0 % [facility] LABORATORY Neutr Abs (ANC) 5.26 1.70 - [facility] 6.10 [facility] x10(3)/[facility] LABORATORY Lymphocytes % 13.3 % [facility] LABORATORY Lymphocytes Abs 0.9 0.9 - 3.2 [facility] x10(3)/[facility] LABORATORY Monocytes % 8.2 % [facility] LABORATORY Monocyte Abs 0.6 0.3 - 0.9 [facility] x10(3)/[facility] LABORATORY Eosinophils % 0.7 % [facility] LABORATORY Eosinophils Abs 0.0 0.0 - 0.4 [facility] x10(3)/[facility] LABORATORY Basophils % 0.4 % [facility] LABORATORY Basophils Abs 0.0 0.0 - 0.1 [facility] x10(3)/[facility] LABORATORY Immature Gran % 0.40 % [...] Melisa Gran Abs 0.03 0.00 - 0.04 x10(3)/[facility] LABORATORY Specimen Anatomical Collection Method Collection Time Receive d Time (Source) Location / / Volume Laterality Blood specimen 07/05/2017 4:55 PM 017 5:24 (specimen) EST PM EST Resulting Agency Comment Spec In Lab Daphne Shahid MD HEMATOLOGY ORDERABLES Performing Organization Address City/State/Z[place] [address] (ABNORMAL) Hemogram (07/05/2017 4:55 PM EST) Analysis Performed At Patho logist Time Signature WBC 6.8 4.0 - 9.5 [facility] x10(3)/[facility] LABORATORY RBC 4.67 4.58 - [facility] 5.54 [facility] x10(6)/[facility] LABORATORY Hemoglobin 14.0 13.7 - [facility] 16.5 gm/dL [facility] LABORATORY Hematocrit 41.0 40.5 - [facility] 48.5 % [facility] LABORATORY MCV 87.8 82.[address] [facility] 93.1 [facility] LABORATORY MCH 30.0 27.5 - [facility] 32.1 pg [facility] LABORATORY MCHC 34.1 32.0 - [facility] 35.7 gm/dL [facility] LABORATORY Platelets 197 145 - 357 [facility] x10(3)/[facility] LABORATORY RDWSD 46.4 (H) 36.0 - [facility] 45.0 [facility] LABORATORY RDWCV 14.5 (H) 11.4 - [facility] 13.8 % [facility] LABORATORY MPV 9.7 7.6 - 12.9 [facility] LABORATORY nRBC % Auto 0.0 % [facility] LABORATORY nRBC Abs Auto 0.000 0.000 - [facility] 0.000 [facility] x10(3)/[facility] LABORATORY Specimen Anatomical Collection Method Collection Time Receive d Time (Source) Location / / Volume Laterality Blood specimen 07/05/2017 4:55 PM 017 5:24 (specimen) EST PM EST Resulting Agency Comment Spec In Lab Daphne Shahid MD HEMATOLOGY ORDERABLES Performing Organization Address City/[facility]/ZIP [place] [address] (ABNORMAL) Cardiac Enzymes (LEB/CGP) (07/05/2017 4:55 PM EST) athologist Signature Troponin-T 1.69 (H) 0.00 - [facility] 0.00 ng/mL [facility] LABORATORY Comment: The [...] additional sample may be indicated. Reference: Third [place]ch Tree Definition of Myocardial Infarction. Journal of the [place] [employer] Cardiology 2012;60:1581-98 CK, Total 191 0 - 200 unit/L [facility] LABORATORY Specimen Anatomical Collection Method Collection Time Receive d Time (Source) Location / / Volume Laterality Blood specimen 07/05/2017 4:55 PM 017 5:56 (specimen) EST PM EST Resulting Agency Comment Spec In Lab Daphne Shahid MD CHEMISTRY ORDERABLES Performing Organization Address City/State/[place] [address] (ABNORMAL) pro-Brain Natriuretic Peptide (07/05/2017 4:55 PM EST) athologist Signature ProBNP 1,598 (H) <=125 [facility] pg/mL [facility] LABORATORY Specimen Anatomical Collection Method Collection Time Receive d Time (Source) Location / / Volume Laterality Blood specimen 07/05/2017 4:55 PM 017 5:24 (specimen) EST PM EST Resulting Agency Comment Spec In Lab Daphne Shahid MD CHEMISTRY ORDERABLES Performing Organization Address City/State/ZIP Code Phon e Number [address] Magnesium (07/05/2017 4:55 PM EST) athologist Signature Magnesium 0.78 0.69 - 1.07 [facility] mmol/L [facility] LABORATORY Specimen Anatomical Collection Method Collection Time Receive d Time (Source) Location / / Volume Laterality Blood specimen 07/05/2017 4:55 PM 017 5:24 (specimen) EST PM EST Resulting Agency Comment Spec In Lab Daphne Shahid MD CHEMISTRY ORDERABLES Performing Organization Address City/[facility]/[place] [address] (ABNORMAL) Basic Metabolic Panel (non-fasting) (07/05/2017 4:55 PM EST) athologist Signature Glucose Lvl 230 (H) 65 - 199 [facility] mg/dL [facility]OR[facility]ORY Comment: Diabetes: >=200 [...] or in patients with acute kidney failure. http://[employer]/DHnkdep [email or web address]/DHMCnkf Specimen Anatomical Collection Method Collection Time Receive d Time (Source) Location / / Volume Laterality Blood specimen 07/05/2017 4:55 PM 017 5:24 (specimen) EST PM EST Resulting Agency Comment Spec In Lab Daphne Shahid MD CHEMISTRY ORDERABLES Performing Organization Address City/[facility]/[place] [address] (ABNORMAL) APTT (07/05/2017 4:55 PM EST) P athologist Signature PTT 41 (H) 25 - 35 sec [facility]ORATORY Comment: The recommended therapeutic range for fu ll dose, unfractionated heparin at [facility] is 80 ? 114 [...] City/[facility]/[place] [address] (ABNORMAL) POCT Glucose (07/05/2017 4:53 PM EST) P athologist Signature POC Glucose 208 (H) 65 - 199 [facility] mg/dL [facility] Comment: Supplemental ranges: <140 mg/dL before meals <180 mg/dL all other times of the day Specimen Anatomical Collection Method Collection Time Receive d Time (Source) Location / / Volume Laterality Blood specimen 07/05/2017 4:53 PM 017 4:53 (specimen) EST PM EST Daphne Shahid MD POINT OF CARE TEST ORDERABLE S Performing Organization Address City/State/ZIP Code Phon e Number [address] EKG 12 Lead (07/05/2017 4:32 PM EST) Component Value Ref Range Test Analysis Performed Pathologis t Method Time At Signature Ventricular rate 97 BPM MUSE SYSTEM Atrial Rate 97 BPM MUSE SYSTEM P-R Interval 148 ms MUSE SYSTEM QRS Duration 96 ms MUSE SYSTEM Q-T Interval 364 ms MUSE SYSTEM QTC Calculated 462 ms MUSE SYSTEM (Bezet) Calculated P [place] 48 degrees MUSE SYSTEM Calculated R [place] -33 degrees MUSE SYSTEM Calculated T [place] 98 degrees MUSE SYSTEM INTERPRETATION Normal sinus [...] Coronary atherosclerosis of unspecified type of vessel, [place] or graft Cardiomyopathy, ischemic Other specified forms [...] post-op day 1 in the AM Give MN if unable to take PO, Routine Given [...] dextrose 5% 250 mL EST infusion (SHOE SALESPERSON) CONTINUOUS PRN, Starting on Wed07/05/17 at 1837, [...] post-op day 1 in the AM Give MN if unable to take PO, Routine atorvastatin [...] RN) 0901 (Given - Provider: Em Jones, RN) 65 Units, Subcutaneous, EVERY 24 HOURS, [...] Group 2) 0000 (Not Given - Provider: Camren Berry RN - Reason: Order parameters not [...] Berry RN) 0615 (Given - Provider: Ale Rangel RN) [...] Jones RN) 0922 (Given - Provider: Myrna E [place], RN) 20 mEq, Oral, DAILY, First dose [...] post-op day 1 in the AM Give MN if unable to take PO
Routine Group [...]
Routine documented in this encounter Care Teams Owner Spa Director Relationship Specialty Start Date End Date Lovely Vicente MD PCP - General 04/16/[address] [place] [address] [address] [place] [address] documented as of this encounter
--- OUTSIDE RECORDS SUMMARY | 2022-03-11 11:34 | XMS_ITS | Encounter Summary ---
:1945 Author Organization [facility] [place] [address] Care Team Providers Name Role Phone Lovely Vicente MD Primary Care Provider Reason for Visit Reason Comments Follow-up Encounter Details Date Type Department Care Team Description 06/03/2017 Office Visit Dermatology at [facility] benign nevi; Abdelrahman HOOPER MD History of melanoma; [address] [facility] History of dysplastic nevus; [place] [address] Skin exam for malignant neoplasm [phone] [facility] [place], [place] [address] Social History Tobacco Use Types [...] Nobles MD [facility] [address] [place], [place] [address] (Wo rk) 05/28/2022 Appointment Cardiology Zulma Dolan MD [facility] [address] [place], [place] [address] (Wo rk) 05/28/2022 Laboratory Appointment Lab 05/28/2022 Office Visit Cardiology Zulma Dolan [place] [address] Liz Poole PA [facility] [place] [address] 06/10/2022 Office Visit Dermatology Laura Scherer MD [facility] [address] TE[address] [place], [place] [address] (Wo rk) documented as [...] skin documented in this encounter Care Teams Automatic Vulcanizing Operator Relationship Specialty Start Date End Date Lovely Vicente MD PCP - General 04/16/15 [facility] [address] [place] [address] documented as of this encounter
--- OUTSIDE RECORDS SUMMARY | 2022-03-11 11:34 | XMS_ITS | Encounter Summary ---
:1945 Author Organization [facility] [place] [address] Care Team Providers Name Role Phone Lovely Vicente MD Primary Care Provider Encounter Details Date Type Department Care Team Description 07/05/2017 Telephone Cardiology Kim Galindo MD [facility] [place] [address] CARDIOLOGY DEPT [phone] [place], [place] [address] (Wo rk) Social History Tobacco [...] 1:54pm Referring Provider: Ivania CROWELL) Patient Location: [facility] Presenting Symptoms per OSH: 72 [...] infarct and elevated troponin, transport patient to [facility] for cath this afternoon and arrhythmia monitoring. Kim Galindo MD [employer] E[employer] Teacher documented in this encounter Plan of Treatment Upcoming Encounters Date Type Specialty Care Team Description 03/26/2022 Office Visit Cardiology Vitaliy Nobles MD [facility] CARDIOLOGY [place], [place] [address] (Wo rk) 05/28/2022 Appointment Cardiology Zulma Dolan MD [facility] [place], [place] [address] (Wo rk) 05/28/2022 Laboratory Appointment Lab 05/28/2022 Office Visit Cardiology Zulma Dolan MD [facility] [place] [address] Liz Poole PA [facility] [place] [address] 06/10/2022 Office Visit Dermatology Laura Scherer MD [facility] [address], [place] [address] (Wo rk) documented as of this encounter Visit Diagnoses Not on filedocumented in this encounter Care Teams Theatrical Dresser Relationship Specialty Start Date End Date Lovely Vicente MD PCP - General 04/16/[address] [place] [address] documented as of this encounter
--- OUTSIDE RECORDS SUMMARY | 2022-03-11 11:34 | XMS_ITS | Encounter Summary ---
:1945 Author Organization [facility] [place] [address] Care Team Providers Name Role Phone Lovely Vicente MD Primary Care Provider Reason for Visit Reason Onset Date Comments Medication Refill 12/24/2016 Encounter Details Date Type Department Care Team Description 12/24/2016 Refill Endocrinology at [facility] Luz Stallings MD [facility] [place] [address] ENDOCRINOLOGY DEPT [phone] [place], [place] [address] (Wo lissa) Social History Tobacco Use Types Packs/Day Years [...] MD [facility] ER [address] [place] [address] (Wo rk) 05/28/2022 Appointment Cardiology Zulma Dolan MD [facility] er [address] [place] [address] (Wo rk) 05/28/2022 Laboratory Appointment Lab 05/28/2022 Office Visit Cardiology Zulma Dolan MD [facility] [place] [address] Liz Poole PA [facility] [place] [address] 06/10/2022 Office Visit Dermatology Laura Scherer MD [facility] ER [address] [place], [place] [address] (Wo rk) documented as of this encounter Visit Diagnoses Not on filedocumented in this encounter Care Teams Strategic Planning Analyst Relationship Specialty Start Date End Date Lovely Vicente MD PCP - General 04/16/[address] [place] [address] documented as of this encounter
--- OUTSIDE RECORDS SUMMARY | 2022-03-11 11:35 | XMS_ITS | Encounter Summary ---
:1945 Author Organization [facility] [place] [address] Care Team Providers Name Role Phone Miya Angela STACIE Primary Care Provider Encounter Details Date Type Department Care Team Description 04/24/2013 Telephone Urology [place] [facility] Zhen Bow[place] [id number] UROLOGY DEPT [phone] [place], [place] [address] (Wo rk) Social History Tobacco [...] Nobles MD [facility] [address] [place], [place] [address] (Wo rk) 05/28/2022 Appointment Cardiology Zulma Dolan MD [facility] [address] [place], [place] [address] (Wo rk) 05/28/2022 Laboratory Appointment Lab 05/28/2022 Office Visit Cardiology Zulma Dolan MD [facility] [place] [id number] Liz Poole PA [facility] [place] [address] 06/10/2022 Office Visit Dermatology Laura Scherer MD [facility] [address], [place] [address] (Wo rk) documented as of this encounter Visit Diagnoses Not on filedocumented in this encounter Care Teams Fishing Tool Operator Relationship Specialty Start Date End Date Angela Holliday APRN PCP - General 01/25/13 04/15/[address] [place] [address] documented as of this encounter
--- OUTSIDE RECORDS SUMMARY | 2022-03-11 11:35 | XMS_ITS | Encounter Summary ---
:1945 Author Organization [facility] Address [facility] [place] [address] Care Team Providers Name Role Phone Lovely Vicente MD Primary Care Provider Reason for Visit Reason Comments Skin Check Encounter Details Date Type Department Care Team Description 11/05/2015 Office Visit Dermatology at Rigoberto Forman benign nevi; Abdelrahman HOOPER MD Lentigines; [address] [facility] History of melanoma; [place] [address] Skin exam for malignant neoplasm [phone] [facility]-[place] [place], [place] [address] Social History Tobacco Use Types [...] Drum (ACCU-CHEK COMPACT TEST) Strip by [facility].(Non- Drug; Combo Route) route 2 times daily. [...] [facility] [address] TADEO [place], [place] [address] (Wo rk) 05/28/2022 Appointment Cardiology Zulma Dolan MD [facility] [place], [place] [address] (Wo rk) 05/28/2022 Laboratory Appointment Lab 05/28/2022 Office Visit Cardiology Zulma Dolan MD [facility] [place] [address] Liz Poole PA [facility] [place] [address] 06/10/2022 Office Visit Dermatology Laura Scherer MD [facility] DR TEJA GR-DERMAT [place], [place] 0[address] (Wo rk) documented as of this encounter Visit Diagnoses Diagnosis Multiple benign nevi Benign neoplasm of skin, site unspecifie d Lentigines Other dyschromia History of melanoma Personal history of malignant melanoma o f skin Skin exam for malignant neoplasm Screening for malignant neoplasm of the skin documented in this encounter Care Teams Stencil Cutter Machine Relationship Specialty Start Date End Date Lovely Vicente MD PCP - General 04/16/[address] [place] [address] documented as of this encounter
--- OUTSIDE RECORDS SUMMARY | 2022-03-11 11:35 | XMS_ITS | Encounter Summary ---
:1945 Author Organization [facility] [place] [address] Care Team Providers Name Role Phone Lovely Vicente MD Primary Care Provider Reason for Visit Reason Onset Date Comments Pre Procedure Call 12/02/2016 Encounter Details Date Type Department Care Team Description 12/02/2016 Telephone Dermatology at [facility] Mira James LPN Pre Procedure Call [address] [place] [address] Social History Tobacco Use Types Packs/Day [...] MD [facility] [address] THOMAS [place], [place] [address] (Wo lissa) 05/28/2022 Appointment Cardiology Zulma Dolna MD [facility] [address] [place] [address] (Wo rk) 05/28/2022 Laboratory Appointment Lab 05/28/2022 Office Visit Zulma Garrison MD [facility] [place] [address] Liz Poole PA [facility] [place] [address] 06/10/2022 Office Visit Dermatology Laura Scherer MD [facility] [address] TEJA GR[place]DERMAT [place], [place] [address] (Wo rk) documented as of this encounter Visit Diagnoses Not on filedocumented in this encounter Care Teams Outpatient Program Coordinator Relationship Specialty Start Date End Date Lovely Vicente MD PCP - General 04/16/15 [facility] [address] [place] [address] documented as of this encounter
--- OUTSIDE RECORDS SUMMARY | 2022-03-11 11:35 | XMS_ITS | Encounter Summary ---
:1945 Author Organization [facility] [place] [address] Care Team Providers Name Role Phone Lovely Vicente MD Primary Care Provider Reason for Visit Reason Comments Skin Lesion Encounter Details Date Type Department Care Team Description 11/24/2016 [facility] of uncertain behavior of skin; Road IIIMD Pigmented skin lesion of uncertain natur e; [address] [facility] [place] of [place] [address] [facility] SIMÓN-DERMATOLGY [place], [place] [address] Social History Tobacco Use Types [...] or concerns, please call the office at [phone]. If it is after 5PM, or a holiday or weekend, please call [phone] and ask for the Certified Legal Secretary Specialist on-call. documented in this encounter Progress Notes [...] 71 y.o. year old male.Established patient of [employer]. Last seen 06/05/16. Here today for new [...] encounter. Rigoberto Garcia MD Section of Dermatology [facility] documented in this encounter Plan of Treatment Upcoming Encounters Date Type Specialty Care Team Description 03/26/2022 Office Visit Cardiology Vitaliy Nobles MD [facility] [address] CARLY[address] [place], [place] [address] (Wo lissa) 05/28/2022 Appointment Cardiology Zulma Dolan MD [facility] [address] [place] [address] (Wo lissa) 05/28/2022 Laboratory Appointment Lab 05/28/2022 Office Visit Cardiology Zulma Dolan MD [facility] [place] [address] Liz Poole PA [facility] [place] [address] 06/10/2022 Office Visit Dermatology Laura Scherer MD [facility] ER [address]-DERMAT [place], [place] [address] (Wo rk) documented as of [...] Hospital gist Range Method Time Signature Surgical [id number] ?Location: [facility] Report The signing pathologist has [...] [facility]/[place] [address] Specimen to Pathology (NON-OR) (11/24/2016 8:28 AM EDT) Specimen Anatomical Collection Method Collection Time Receive d Time (Source) Location / / Volume Laterality AP Specimen 11/24/2016 8:28 AM 7 9:29 EDT AM EDT Narrative [facility] - 11/24/2016 9:29 AM EDT Specimen requisition ordered. ??Separate Pathology report to follow Resulting Agency Comment Spec In Lab Rigoberto Garcia III, MD PATHOLOGY/CYTOLOGY ORDERABLE S Performing Organization Address City/[facility] [place] [address] documented in this encounter Visit Diagnoses Diagnosis Neoplasm of uncertain behavior of skin Pigmented skin lesion of uncertain natur e History of melanoma Personal history of malignant melanoma o f skin documented in this encounter Care Teams Card Lacer Jacquard Relationship Specialty Start Date End Date Lovely Vicente MD PCP - General 04/16/[address] [place] [address] documented as of this encounter
--- OUTSIDE RECORDS SUMMARY | 2022-03-11 11:35 | XMS_ITS | Encounter Summary ---
:1945 Author Organization [facility] [place] [address] Care Team Providers Name Role Phone Lovley Vicente MD Primary Care Provider Reason for Visit Reason Comments Nevus excision dysplastic nevus mi d upper abdomen Encounter Details Date Type Department Care Team Description 12/03/2016 Procedure visit Dermatology at Halima Dubois Dysplastic nevus of Road MD Adrián trunk [address] [facility] [address] [facility] [phone] [address]-DERMATOLGY [place] [address] Social History Tobacco Use Types Packs/Day Years [...] Halima Cordero MD during the day at [phone] Nurse: Mira [phone] Amy After 5 PM and on weekends, please call the hospital number , and ask for the Global Marketing Specialist consulting services associate. documented in this encounter Progress Notes Halima Cordero MD - 12/10/2016 5:41 PM EDT Gwendolyn, Excision shows scar, there is no residual of the severely dysplastic nevus. Please notify patient and check on wound healing. Thank you, DTB Halima Cordero MD - 12/03/2016 3:00 PM EDT Images from the original note were not included. Dermatology Procedure note: Attending: Halima Cordero MD Tutor Coordinator: Mira James LPN Referring MD: Rigoberto Garcia [...] to call the clinic or the on-call testing director over the weekend. ??? Name of Procedure? [...] Vitaliy Nobles MD [facility] [address] TADE[address] [place], [place] [address] (Wo rk) 05/28/2022 Appointment Cardiology Zulma Dolan MD [facility] [place], [place] [address] (Wo rk) 05/28/2022 Laboratory Appointment Lab 05/28/2022 Office Visit Cardiology Zulma Dolan MD [facility] [place] [address] Liz Poole PA [facility] [place] [address] 06/10/2022 Office Visit Dermatology Laura Scherer MD [facility] DR ETJA GR-DERMAT [place], [place] [address] (Wo rk) documented as of [...] Patholo gist Range Method Time Signature Surgical [id number] ?Location: [facility] Report The signing pathologist has (i) examined [...] Clinical Diagnosis: Dysplastic nevus, see previous pathology [id number] SPECIMEN PROCESSING A - Labeled/Fixative: Mid-upper abdomen, [...] Organization Address City/State/[place] [address] Specimen to Pathology (NON-OR) (12/03/2016 3:31 PM EDT) Specimen Anatomical Collection Method Collection Time Receive d Time (Source) Location / / Volume Laterality AP Specimen 12/03/2016 3:31 PM 7 6:27 EDT PM EDT Narrative [facility] - 12/03/2016 6:27 PM EDT Specimen requisition ordered. ??Separate Pathology report to follow Resulting Agency Comment Spec In Lab Halima Cordero MD PATHOLOGY/CYTOLOGY ORDERABLE S Performing Organization Address City/State/[place] [address] documented in this encounter Visit Diagnoses Diagnosis Dysplastic nevus of trunk Benign neoplasm of skin of trunk, except scrotum documented in this encounter Care Teams Bowling Ball Engraver Relationship Specialty Start Date End Date Lovely Vicente MD PCP - General 04/16/[address] [place] [address] documented as of this encounter
--- OUTSIDE RECORDS SUMMARY | 2022-03-11 11:35 | XMS_ITS | Encounter Summary ---
:1945 Author Organization [facility] [place] [address] Care Team Providers Name Role Phone Lovely Vicente MD Primary Care Provider Encounter Details Date Type Department Care Team Description 11/28/2016 Telephone Dermatology at [facility] Rigoberto Garcia III, [address] [place] [address] [facility] [phone] [facility] SIM[facility]N-DERMAT [place], [place] [address] (Wo rk) Social History Tobacco [...] provider. Rigoberto Garcia MD Section of Dermatology [facility] documented in this encounter Plan of Treatment Upcoming Encounters Date Type Specialty Care Team Description 03/26/2022 Office Visit Cardiology Vitaliy Nobles MD [facility] [address] THOMAS [place], [place] [address] (Wo rk) 05/28/2022 Appointment Cardiology Zulma Dolan MD [facility] [address] [place] [address] (Wo rk) 05/28/2022 Laboratory Appointment Lab 05/28/2022 Office Visit Cardiology Zulma Dolan MD [facility] [place] [address] Liz Poole PA [facility] [place] [address] 06/10/2022 Office Visit Dermatology Laura Scherer MD [facility] DR TEJA MARIE-DERMAT [place], [place] [address] (Wo rk) documented as of this encounter Visit Diagnoses Not on filedocumented in this encounter Care Teams Soiled Linen Distributor Relationship Specialty Start Date End Date Lovely Vicente MD PCP - General 04/16/[address] [place] [address] documented as of this encounter
--- OUTSIDE RECORDS SUMMARY | 2022-03-11 11:35 | XMS_ITS | Encounter Summary ---
:1945 Author Organization [facility] [place] [address] Care Team Providers Name Role Phone Angela Holliday APRN Primary Care Provider Reason for Visit Reason Onset Date Comments Other 03/30/2013 blood in catheter ba g Encounter Details Date Type Department Care Team Description 03/30/2013 Telephone General Surgery at [facility] Janneth Sharma, Other (blood in [facility] RN catheter bag) [place] [address] Social History Tobacco Use Types Packs/Day [...] Nobles MD [facility] DR TADEO [place], [place] [address] (Wo rk) 05/28/2022 Appointment Cardiology Zulma Dolan MD [facility] [place], [place] [address] (Wo rk) 05/28/2022 Laboratory Appointment Lab 05/28/2022 Office Visit Cardiology Zulma Dolan MD [place] [address] Liz Poole PA [facility] [place] [address] 06/10/2022 Office Visit Dermatology Laura Scherer MD [facility] DR TE[address] GR-DERMAT [place], [place] [address] (Wo rk) documented as of this encounter Visit Diagnoses Not on filedocumented in this encounter Care Teams Circular Saw Filer Relationship Specialty Start Date End Date Angela Holliday APRN PCP - General 01/25/13 04/15/[address] [place] [address] documented as of this encounter
--- OUTSIDE RECORDS SUMMARY | 2022-03-11 11:35 | XMS_ITS | Encounter Summary ---
:1945 Author Organization [facility] [place] [address] Care Team Providers Name Role Phone Lovely Vicente MD Primary Care Provider Reason for Visit Reason Onset Date Comments Referral 10/30/2015 Urgent referral for mac on SIM[address] Encounter Details Date Type Department Care Team Description 10/30/2015 Telephone Ophthalmology at [facility] Jayson Ruiz Referral (Urgent [facility] MD Grabiel referral for mac on [facility] DR SIM[address] [place]) [place] [address] OPHTHALMOLOGY DEPT. [phone] [place], [place] [address] (Wo rk) Social History Tobacco [...] routine CEE and found mac on RD LE, patient asymptomatic. Paged Dr. Ruiz. Due to full surgical schedule unable to see until next week. If Dr. Harrison feelscan wait, patient can come Wed or Thurs AM - NPO for possible surgery. Dr. Harrison's office advised. documented in this encounter Plan of Treatment Upcoming Encounters Date Type Specialty Care Team Description 03/26/2022 Office Visit Cardiology Vitaliy Nobles MD [facility] CARDIOLOGY [place], [place] [address] (Wo rk) 05/28/2022 Appointment Cardiology Zulma Dolan MD [facility] [place], [place] [address] (Wo rk) 05/28/2022 Laboratory Appointment Lab 05/28/2022 Office Visit Cardiology Zulma Dolan MD [facility] [place] [address] [facility] [place] [address] 06/10/2022 Office Visit Dermatology Laura Scherer MD [facility] DR TEJA GR-DERMAT OGY [place], [place] [address] (Wo rk) documented as of this encounter Visit Diagnoses Not on filedocumented in this encounter Care Teams Food Science Professor Relationship Specialty Start Date End Date Lovely Vicente MD PCP - General 04/16/[address] [place] [address] documented as of this encounter
--- OUTSIDE RECORDS SUMMARY | 2022-03-11 11:35 | XMS_ITS | Encounter Summary ---
:1945 Author Organization [facility] [place] [address] Care Team Providers Name Role Phone Angela Holliday APRN Primary Care Provider Encounter Details Date Type Department Care Team Description 03/30/2013 Telephone General Surgery at [facility] Cliff Nevarez, [place] [address] Social History Tobacco Use Types Packs/Day [...] MD [facility] [address] TADE[address] [place], [place] [address] (Wo rk) 05/28/2022 Appointment Cardiology Zulma Dolan MD [facility] [address] [place], [place] [address] (Wo rk) 05/28/2022 Laboratory Appointment Lab 05/28/2022 Office Visit Cardiology Zulma Dolan MD [facility] [place] [address] Liz Poole PA [facility] [place] [address] 06/10/2022 Office Visit Dermatology Laura Scherer MD [facility] DR TEJA GR-DERMAT [place], [place] [address] (Wo rk) documented as of this encounter Visit Diagnoses Not on filedocumented in this encounter Care Teams Parking Lot Chauffeur Relationship Specialty Start Date End Date Angela Holliday APRN PCP - General 01/25/13 04/15/[address] [place] [address] documented as of this encounter
--- OUTSIDE RECORDS SUMMARY | 2022-03-11 11:35 | XMS_ITS | Encounter Summary ---
:1945 Author Organization [place] [address] Care Team Providers Name Role Phone Angela Sotelo APRN Primary Care Provider Encounter Details Date Type Department Care Team Description 01/16/2014 Surgery Gastroenterology at [facility] Nohemi Swann, COLONOSCOPY, [facility] Jorge mcnmaara MD [place], [place] [address] [facility] ([facility] [phone] DR Cintron) GASTROENTEROLOGY DEPT. [place], [place] [address] Social History Tobacco Use Types [...] you need to be checked. [facility] [phone] 8a-5p Same Day Endo [phone] 7a-8p Otherwise contact [phone] and ask to speak to the concrete pump operator helper compensation agent Follow up care is a [place] part [...] Operative Note Patient Name: Gregory Fatima : [id number] MR#: [id number] Case Date: 01/16/2014 Surgeon: Surgeon(s) and Role: * Nohemi Swann MD - Primary Preoperative diagnosis: 5 yr surv. Full procedure note is documented under the Procedure section of eDH. documented in this encounter Plan of Treatment Upcoming Encounters Date Type Specialty Care Team Description 03/26/2022 Office Visit Cardiology Vitaliy Nobles MD [facility] [address] CARLY[address] [place] [address] (Wo rk) 05/28/2022 Appointment Cardiology Zulma Dolan MD [facility] [place] [address] (Wo rk) 05/28/2022 Laboratory Appointment Lab 05/28/2022 Office Visit Cardiology Zulma Dolan MD [facility] [place] [address] Liz Poole PA [facility] [place] [address] 06/10/2022 Office Visit Dermatology Laura Scherer MD [facility] ER DR TEJA GR-DERMAT [place]LOG[place], [place] [address] (Wo rk) documented as of [...] Surgical Pathology Report (01/16/2014 9:53 AM EDT) [facility] gist Method Time Signature Surgical CERNER Pathology ? [facility] Report ? Provider: ?? NOHEMI SWANN ?Pt. Name: ?? MALICKA RT, GREGORY E ? Acc #: ?[id number] ?Pt. MRN: ?[id number] ? Col Date: ?? 4 ? /Sex: ?1945,(68 years),Male ? Rec Date: ?? 01/16/2014 ? LOC: ?4T ? SURGICAL PATHOLOGY ? ---Pathologic Diagnosis--- ? Endoscopic biopsies - ? A. Hyperplastic polyp and colonic mucosa within ada l limits. ? B. Tubular adenoma. ? CR-PX ? 01/17/14 ? AAS ? 01/17/14 Verified by: ? Benny STRANGE, Sona Gomes ? Pathologist ? (Electronic Si gnature) ? [...] Organization Address City/State/[place] [address] [facility] Specimen to Pathology (surgical or derm) (01/16/2014 [...] City/[facility]/[place] [address] CERNER MILLENNIUM Specimen to [...] ORDERABLE S Performing Organization Address City/[facility] Code Phon e Number [address] CERNER MILLENNIUM COLONOSCOPY (01/16/2014 7:25 AM EDT) [facility] Method Time Signature COLONOSCOPY [facility] PROVATION Endoscopy Patient Name: Gregory Fatima ? Procedure Date: 01/16/2014 7:25 AM ? Date of : 1945 ? Age: 68 ? Order #: [id number] ? Procedure: ? Colonoscopy Indications: ? High [...] Laterality 01/16/2014 7:25 AM EDT Angela Sotelo HOME HEALTH CARE PHYSICIAN GENERAL SURGICAL ORDERABLES Performing Organization Address City/State/ZIP [...] Samuel RN)0859 (Given - Provider: Blanca Samuel, VAMSI)0902 (Given - Provider: Blanca Samuel, VAMSI)0911 (Given - Provider: Blanca Samuel, VAMSI)0914 (Given - Provider: Blanca Samuel, RN) ONCE PRN, Starting Wed01/16/14 at 0856, Until Wed01/16/14 at 1036, Sleep, Intra- Operative (Intra-Procedure), Routine documented in this encounter Care Teams Yard Clerk Relationship Specialty Start Date End Date Angela Sotelo APRN PCP - General 01/25/13 04/15/[address] [place] [place] [address] documented as of this encounter
--- OUTSIDE RECORDS SUMMARY | 2022-03-11 11:35 | XMS_ITS | Encounter Summary ---
:1945 Author Organization [facility] [place] [address] Care Team Providers Name Role Phone Lovely Vicente MD Primary Care Provider Encounter Details Date Type Department Care Team Description 07/10/2016 Telephone Dermatology at [facility] Rigoberto White III, [address] [place] [address] [facility] [phone] [facility]DERMAT [place], [place] [address] (Wo rk) Social History Tobacco [...] MD [facility] [address] TADE[address] [place], [place] [address] (Wo rk) 05/28/2022 Appointment Cardiology Zulma Dolan MD [facility] [place], [place] [address] (Wo rk) 05/28/2022 Laboratory Appointment Lab 05/28/2022 Office Visit Cardiology Zulma Dolan MD [facility] [place] [address] Liz Poole PA [facility] [place] [address] 06/10/2022 Office Visit Dermatology Laura Scherer MD [facility] DR [address]-DERMAT [place], [place] [address] (Wo rk) documented as of this encounter Visit Diagnoses Not on filedocumented in this encounter Care Teams Senior Clerk Relationship Specialty Start Date End Date Lovely Vicente MD PCP - General 04/16/[address] [place] [address] documented as of this encounter
--- OUTSIDE RECORDS SUMMARY | 2022-03-11 11:35 | XMS_ITS | Encounter Summary ---
:1945 Author Organization [facility] [place] [address] Care Team Providers Name Role Phone Lovely Vicente MD Primary Care Provider Reason for Visit Reason Comments Skin Check Encounter Details Date Type Department Care Team Description 04/16/2015 Follow-Up Dermatology at Rigoberto Forman x of melanoma of skin; Abdelrahman HOOPER MD Multiple benign nevi [address] [place] [address] [facility] [place], [place] [address] (Wo rk) Social History Tobacco [...] MD [facility] [address] TADE[address] [place], [place] [address] (Wo rk) 05/28/2022 Appointment Cardiology Zulma Dolan MD [facility] [place], [place] [address] (Wo rk) 05/28/2022 Laboratory Appointment Lab 05/28/2022 Office Visit Cardiology Zulma Dolan MD [facility] [place] [address] Liz Poole PA [facility] [place] [address] 06/10/2022 Office Visit Dermatology Laura Scherer MD [facility] DR [address]-DERMAT [place], [place] [address] (Wo rk) documented as of this encounter Visit Diagnoses Diagnosis Hx of melanoma of skin Personal history of malignant melanoma o f skin Multiple benign nevi Benign neoplasm of skin, site unspecifie d documented in this encounter Care Teams Vice President For Philanthropy Relationship Specialty Start Date End Date Lovely Vicente MD PCP - General 04/16/[address] [place] [address] documented as of this encounter
--- OUTSIDE RECORDS SUMMARY | 2022-03-11 11:35 | XMS_ITS | Encounter Summary ---
:1945 Author Organization [facility] [place] [address] Care Team Providers Name Role Phone MiyaLokeshAngela STACIE Primary Care Provider Encounter Details Date Type Department Care Team Description 01/16/2014 Hospital Encounter Gastroenterology at [facility] Nohemi Swann, [facility] [place] [address] [facility] [phone] [facility] [place], [place] [address] Social History Tobacco Use Types [...] you need to be checked. Wednesday-[facility] Clinic [phone] 8a-5p Same Day Endo [phone]-8p Otherwise contact [phone] and ask to speak to the cdl b driver construction services technician Follow up care is a shelton [...] Swann MD - 01/16/2014 9:49 AM EDT [facility] Operative Note Patient Name: Gregory Fatima : [id number] MR#: [id number] Case Date: 01/16/2014 Surgeon: Surgeon(s) and Role: * Nohemi Swann MD - Primary Preoperative diagnosis: 5 yr surv. Full procedure note is documented under the Procedure section of eDH. documented in this encounter Plan of Treatment Upcoming Encounters Date Type Specialty Care Team Description 03/26/2022 Office Visit Cardiology Vitaliy Nobles MD [facility] [address] [place]LE [place], [place] [address] (Wo rk) 05/28/2022 Appointment Cardiology Zulma Dolan MD [facility] [address] [place] 0[address] (Wo rk) 05/28/2022 Laboratory Appointment Lab 05/28/2022 Office Visit Zulma Garrison MD [facility] [place] [address] Liz Poole PA [facility] [place] [address] 06/10/2022 Office Visit Dermatology Laura Scherer MD [facility] ER DR TEJA GR-DERMAT [place], [place] 0[address] (Wo rk) documented as of [...] Surgical Pathology Report (01/16/2014 9:53 AM EDT) [facility] gist Method Time Signature Surgical CERNER Pathology ? [facility] Report ? Provider: ?? NOHEMI SWANN ?Pt. Name: ?? MALICKEliseo RT, GREGORY E ? Acc #: ?[id number] ?Pt. MRN: ?[id number] ? Col Date: ?? 4 ? /Sex: [...] Organization Address City/State/[place] [address] [facility] Specimen to Pathology (surgical or [...] PATHOLOGY/CYTOLOGY ORDERABLE S Performing Organization Address [facility]/[place] [address] CERNER MILLENNIUM Specimen to [...] MD PATHOLOGY/CYTOLOGY ORDERABLE S Performing Organization Address City/[facility] [place] [address] CERNER MILLENNIUM COLONOSCOPY (01/16/2014 7:25 AM EDT) [facility] Method Time Signature COLONOSCOPY [facility] Endoscopy Patient Name: Gregory Fatima ? Procedure Date: 01/16/2014 7:25 AM ? Date of : 1945 ? Age: 68 ? Order #: [id number] ? Procedure: ? Colonoscopy Indications: ? High [...] Laterality 01/16/2014 7:25 AM EDT Angela Sotelo IN [facility] ORDERABLES Performing Organization Address City/State/ZIP [...] 01/16/14 at 0856, Until 01/16/14 at 1036, Pain, Intra- Operative (Intra-Procedure), Routine midazolam (PF) (VERSED) 1 mg/mL injection (CANCELED) 0856 (Given - Provider: Blanca Samuel, RN)0859 (Given - Provider: Blanca Samuel, RN)0902 (Given - Provider: Blanca Samuel, RN)0911 (Given - Provider: Blanca Samuel, RN)0914 (Given - Provider: Blanca Samuel, RN) ONCE PRN, Starting Wed01/16/14 at 0856, Until Wed01/16/14 at 1036, Sleep, Intra- Operative (Intra-Procedure), Routine documented in this encounter Care Teams Applications Scientist Relationship Specialty Start Date End Date Angela Sotelo APRN PCP - General 01/25/13 04/15/[address] [place] [address] documented as of this encounter
--- OUTSIDE RECORDS SUMMARY | 2022-03-11 11:35 | XMS_ITS | Encounter Summary ---
:1945 Author Organization [facility] [place] [address] Care Team Providers Name Role Phone Lovely Vicente MD Primary Care Provider Reason for Visit Reason Comments Thyroid Cancer Encounter Details Date Type Department Care Team Description 06/05/2015 Office Visit Endocrinology at [facility] Albertina Prescott, History of papillary [facility] MD Luz adenocarcinoma of [facility] thyroid (Primary Dx) [place] [address] CENTER [phone] [place] [address] Social History Tobacco Use Types Packs/Day Years [...] the thyroid gland were obtained using a Breezy ultrasound machine. All measurements are given as AP x Transverse x Longitudinal Right Lobe: Absent Left Lobe: Absent Isthmus: Absent Central/Lateral neck: no morphologically abnormal lymph nodes. Impression: No sonographic evidence of recurrence. LUZ PRESCOTT MD Activities Therapistcard painter Section of Endocrinology [facility] Luz Prescott MD - 06/05/2015 8:21 AM [...] Diagnostic, Drum (ACCU-CHEK COMPACT TEST) Strip by [facility]Non-Drug; Combo Route) route 2 times daily. Yes [...] --f/u in 1 year LUZ PRESCOTT MD Activities Therapistcard painter Section of Endocrinology [facility] documented in this encounter Miscellaneous Notes Addendum [...] Vitaliy Nobles MD [facility] [address] [place], [place] [address] (Wo rk) 05/28/2022 Appointment Cardiology Zulma Dolan MD [facility] Dr [place], [place] 0[address] (Wo rk) 05/28/2022 Laboratory Appointment Lab 05/28/2022 Office Visit Cardiology Zulma Dolan MD [facility] [place] [address] Liz Poole PA [facility] [place] [address] 06/10/2022 Office Visit Dermatology Laura Scherer MD [facility] DR [address]-DERMAT O[place], [place] 0[address] (Wo rk) documented as [...] athologist Signature Thyroglobulin 0.6 <=54.9 CERNER ng/mL [facility] Comment: Interpret with caution. Tg [...] than those obtained with T4 withdrawal protocol ([place] BR et al. J Clin Endo Metab 1999;84:3066-7706). 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
--- OUTSIDE RECORDS SUMMARY | 2022-03-11 11:35 | XMS_ITS | Encounter Summary ---
:1945 [place] [address] Care Team Providers Name Role Phone Holley Hollidayica STACIE Primary Care Provider Encounter Details Date Type Department Care Team Description 03/28/2013 - [facility]Primary 03/29/2013 Barbara Gomes MD Dx) [facility] [place] [address] [phone] Social History Tobacco Use Types Packs/Day Years [...] please call the General Surgery nurse at [phone], since this may mean that you need morecalcium. Follow-up Appointment: Will be scheduled with Dr. Mcknight in 6 weeks Date and time as well as any required labs will be mailed to you Please call [phone] to confirm date and time of your [...] by calcium supplementation. Phone number for questions: [phone] before 5 PM weekdays [phone] after 5 PM and on weekends/holidays Please follow up with Urology as per their recommendations for Bob removal AttachmentsThe following attachments cannot be sent through Care Everywhere. THYROIDECTOMY: WHAT TO EXPECT AT HOME ([place])URINARY CATHETER CARE: AFTER YOUR VISIT ([place])documented in this encounter Medications at Time of [...] MD - 03/28/2013 3:43 PM EDT [facility] Operative Note Patient Name: Gregory Fatima : [id number] MR#: [id number] Case Date: 03/28/2013 Surgeon: Surgeon(s) and Role: [...] Operative Note Patient Name: Gregory Fatima : [id number] MR#: [id number] Case Date: 03/28/2013 Surgeon: Surgeon(s) and Role: [...] MD [facility] DR [place]LE [place], [place] [address] (Wo rk) 05/28/2022 Appointment Cardiology Zulma Dolan MD [facility] [address] [place] [address] (Wo rk) 05/28/2022 Laboratory Appointment Lab 05/28/2022 Office Visit Cardiology Zulma Dolan MD [facility] [place] [address] Liz Poole PA [facility] [place] [address] 06/10/2022 Office Visit Dermatology Laura Scherer MD [facility] ER DR [address]-DERMAT [place]LOG[place], [place] [address] (Wo rk) documented as [...] 332 (H) 60 - 199 CERNER mg/dL [facility] Comment: Supplemental ranges: <110 mg/dL before meals <200 mg/dL all other times of the day Specimen Anatomical Collection Method Collection Time Receive d Time (Source) Location / / Volume Laterality Blood specimen 03/29/2013 8:08 AM 013 8:08 (specimen) EDT AM EDT Mesha Mcknight MD POINT OF CARE TEST ORDERABLE S Performing Organization Address City/State/[place] [address] CERNER MILLENNIUM (ABNORMAL) POCT Glucose (03/29/2013 4:04 AM EDT) athologist Signature POC Glucose 247 (H) 60 - 199 CERNER mg/dL [facility] Comment: Supplemental ranges: <110 mg/dL before meals <200 mg/dL all other times of the day Specimen Anatomical Collection Method Collection Time Receive d Time (Source) Location / / Volume Laterality Blood specimen 03/29/2013 4:04 AM 013 4:04 (specimen) EDT AM EDT Mesha Mcknight MD POINT OF CARE TEST ORDERABLE S Performing Organization Address City/State/ZIP Code Phon e Number [address] CERNER MILLENNIUM (ABNORMAL) POCT Glucose (03/29/2013 1:26 AM EDT) P athologist Signature POC Glucose 255 (H) 60 [...] TEST ORDERABLE S Performing Organization Address City/[facility]/ZIP Code Phon e Number [address] CERNER MILLENNIUM (ABNORMAL) POCT [...] TEST ORDERABLE S Performing Organization Address City/[facility]/ZIP Code Phon e Number [address] CERNER MILLENNIUM (ABNORMAL) POCT [...] Organization Address City/State/[place] [address] CERNER MILLENNIUM (ABNORMAL) POCT [...] TEST ORDERABLE S Performing Organization Address City/[facility]/ZIP Code Phon e Number [address] CERNER MILLENNIUM (ABNORMAL) POCT [...] TEST ORDERABLE S Performing Organization Address City/[facility]/ZIP Code Phon e Number [address] CERNER MILLENNIUM (ABNORMAL) POCT Glucose (03/28/2013 2:49 PM EDT) P athologist Signature POC Glucose 319 (H) 60 - 199 CERNER mg/dL [facility] Comment: Supplemental ranges: <110 mg/dL before meals <200 mg/dL all other times of the day Specimen Anatomical Collection Method Collection Time Receive d Time (Source) Location / / Volume Laterality Blood specimen 03/28/2013 2:49 PM 013 2:49 (specimen) EDT PM EDT Mesha Mcknight MD POINT OF CARE TEST ORDERABLE S Performing Organization Address City/[facility]/ZIP Code Phon e Number [address] [facility] Specimen to Pathology (surgical or derm) (03/28/2013 12:14 PM EDT) Specimen Anatomical Collection Method Collection Time Receive d Time (Source) Location / / Volume Laterality AP Specimen 03/28/2013 12:14 03/28/2013 PM EDT 12:14 PM EDT Narrative CERNER [facility] - 03/28/2013 12:14 PM EDT Specimen requisition ordered. ??Separate Pathology report to follow Mesha Mcknight MD PATHOLOGY/CYTOLOGY ORDERABLE S Performing Organization Address City/[facility]/ZIP Code Phon e Number [address] [facility] Pathology Addendum Report (03/28/2013 12:03 PM EDT) Component Value Ref Test Analysis Performed At Patholo gist Range Method Time Signature Addendum CERNER Report ? [facility] ? Provider: ?? MESHA MCKNIGHT Pt. Name: ?? GREGORY FATIMA ? Acc #: ?[id number] ?Pt. MRN: ?[id number] ? Col Date: ?? 03/28/2013 ?/Sex: ?1945,(68 years),Male ? Rec Date: ?? 03/28/2013 ?LOC: ?[facility] ? ADDENDUM REPORT ? ---Addendum Discussion--- ? This addendum documents the information c onveyed during intraoperative ? gross consultation. T he thyroid tissue received for Part A was sectioned, ? and no suspicious nodules were identified abdoulayein simón gross intraoperative ? consultation; therefore, no frozen section was ? performed. The original diagnoses are unchanged. ? 05/09/13 ? JRP ? 05/09/13 Verified by: ? Ruben Lindsey MD ? Pathologist ? (Electronic Si gnature) [...] Organization Address City/State/[place] [address] [facility] Surgical Pathology Report (03/28/2013 12:03 PM EDT) Component Value Ref Test Analysis Performed At [facility] Range Method Time Signature Surgical [facility] Pathology ? [facility] Report ? Provider: ?? MESHA MCKNIGHT Pt. Name: ?? GREGORY FATIMA ? Acc #: ?[id number] ?Pt. MRN: ?[id number] ? Col Date: ?? 03/28/2013 ?/Sex: ?1945,(68 [...] areas of hemorrhage and ? calcifications. ? [facility] ? Provider: ?? MESHA MCKNIGHT Pt. Name: ?? GREGORY FATIMA ? Acc #: ?[id number] ?Pt. MRN: ?[id number] ? Col Date: ?? 03/28/2013 ?/Sex: ?1945,(68 years),Male ? Rec Date: ?? 03/28/2013 ?LOC: ?[facility] ? SURGICAL PATHOLOGY ? SECTIONS/PROCESSING: Ios Developer sections are subm itted. (R6) ? B - Labeled/Fixative: Right lobe of thyroid, fresh. ? Qty./Size/Weight: Single, 7.7 x 4.3 and 3.3 cm, 39 g. ? SPECIMEN DESCRIPTION ? Resection Specimen: Right thyroid lobectomy. ? External Surface: Irregular and lobular. ? Parathyroids: Not identified. ? PARENCHYMA: The hilary chyma is diffusely nodular cordova yellow with [...] Organization Address City/State/[place] [address] CERNER MILLENNIUM Frozen Section Report (03/28/2013 12:03 PM EDT) Component Value Ref Test Analysis Performed At [facility] Range Method Time Signature Frozen CERNER Section ? [facility] Report ? Provider: ?? MESHA MCKNIGHT Pt. Name: ?? GREGORY FATIMA ? Acc #: ?[id number] ?Pt. MRN: ?[id number] ? Col Date: ?? 03/28/2013 ?/Sex: ?1945,(68 years),Male ? Rec Date: ?? 03/28/2013 ?LOC: ?[facility] ? FROZEN SECTION REPORT ? ---Frozen Section Report--- ? Part A - Intraoperati ve gross consultation was performed. ??The case was ? discussed by phone with Dr. Mcknight, and no frozen ? section was performed. ? 03/31/13 ??Verified by: ??César STRANGE, Ruben Yusuf, Jessica gist ? The attending jessica ying whose electronic signature appears on this report [...] PATHOLOGY/CYTOLOGY ORDERABLE S Performing Organization Address [facility] [place] [address] CERNER MILLENNIUM POCT Glucose (03/28/2013 12:00 PM EDT) P athologist Signature POC Glucose 134 60 - 199 CERNER mg/dL MILLENNIUM Comment: Supplemental ranges: <110 mg/dL before meals <200 mg/dL all other times of the day Specimen Anatomical Collection Method Collection Time Receive d Time (Source) Location / / Volume Laterality Blood specimen 03/28/2013 12:00 3 (specimen) PM EDT 12:00 PM EDT Mesha Mcknight MD POINT OF CARE TEST ORDERABLE S Performing Organization Address [facility]/ZIP [facility] [place] [address] CERNER MILLENNIUM Specimen to Pathology (surgical or derm) (03/28/2013 11:58 AM EDT) Specimen Anatomical Collection Method Collection Time Receive d Time (Source) Location / / Volume Laterality AP Specimen 03/28/2013 11:58 03/28/2013 AM EDT 11:58 AM EDT Narrative CERNER MILLENNIUM - 03/28/2013 11:58 AM EDT Specimen requisition ordered. ??Separate Pathology report to follow Mesha Mcknight MD PATHOLOGY/CYTOLOGY ORDERABLE S Performing Organization Address [facility]/State/ZIP Code Phon e Number [address] [facility] MILLENNIUM Antibody screen (03/28/2013 9:37 AM EDT) Analysis Performed At Patho logist Time Signature Ab Screen Negative CERKERI Inter GRISELDAENNIUM Expires at [id number] CERNER 2359 on: MILLENNIUM Specimen Anatomical Collection Method Collection Time Receive d Time (Source) Location / / Volume Laterality Blood specimen 03/28/2013 9:37 AM 013 9:37 (specimen) EDT AM EDT Resulting Agency Comment Spec In Lab Mesha Mcknight MD BLOOD BANK ORDERABLES Performing Organization Address City/[facility]/ZIP Code Phon e Number [address] [facility] ABO/Rh Typing (03/28/2013 9:37 AM EDT) P athologist Signature ABORh Type O Pos [facility] Specimen Anatomical Collection Method Collection Time Receive d Time (Source) Location / / Volume Laterality Blood specimen 03/28/2013 9:37 AM 013 9:37 (specimen) EDT AM EDT Resulting Agency Comment Spec In Lab Mesha Mcknight MD BLOOD BANK ORDERABLES Performing Organization Address City/[facility]/ZIP Code Phon e Number [address] [facility] Differential, Automated (03/28/2013 9:34 AM EDT) P [...] Organization Address City/State/[place] [address] CERNER MILLENNIUM (ABNORMAL) Basic [...] supplied above were not validated at [facility]. Results from pediatri c patients should be [...] Organization Address City/State/ZIP Code Phon e Number [place] [id number]OS[address]ITAL [address] CERNER MILLENNIUM (ABNORMAL) CBC [...] MCHC 33.7 32.0 - CERNER 36.5 gm/dL [facility] Platelets 161 145 - 370 CERNER x10(3)/mcL MILLENNIUM RDWSD 43.7 35.0 - CERNER 46.0 fL [facility] RDWCV 14.2 10.9 - CERNER 14.4 % [facility] MPV 9.3 9.0 - 12.0 CERNER fL [facility] Specimen Anatomical Collection Method Collection Time Receive d Time (Source) Location / / Volume Laterality Blood specimen 03/28/2013 9:34 AM 013 9:38 (specimen) EDT AM EDT Resulting Agency Comment Spec In Lab Mesha Mcknight MD HEMATOLOGY ORDERABLES Performing Organization Address City/State/ZIP Code Phon e Number [address] [facility] POCT Glucose (03/28/2013 9:17 AM EDT) athologist Signature POC Glucose 108 60 - 199 CERNER mg/dL [facility] Comment: Supplemental ranges: <110 mg/dL before meals <200 mg/dL all other times of the day Specimen Anatomical Collection Method Collection Time Receive d Time (Source) Location / / Volume Laterality Blood specimen 03/28/2013 9:17 AM 013 9:17 (specimen) EDT AM EDT Mesha Mcknight MD POINT OF CARE TEST ORDERABLE S Performing Organization Address City/[facility]/ZIP Code Phon e Number [address] [facility] Specimen to Pathology (surgical or derm) (03/28/2013 8:55 AM EDT) Specimen Anatomical Collection Method Collection Time Receive d Time (Source) Location / / Volume Laterality AP Specimen 03/28/2013 8:55 AM 3 8:54 EDT AM EDT Narrative [facility] - 03/28/2013 8:55 AM E DT Specimen requisition ordered. ??Separate Pathology report to follow Mesha Mcknight MD PATHOLOGY/CYTOLOGY ORDERABLE S Performing Organization Address City/[facility]/[place] [address] [facility] documented in this encounter Visit [...] RN) 0900 (Given - Provider: Radha Yao [facility], RN) 2.5 mg, Oral, DAILY, First dose [...] 2g in dextrose 5% 50 mL (COMPLETED) 2000 (Given - Provider: Kesha Gracia RN) 0400 [...] Routine glyBURIDE (DIABETA) tablet 5 mg (CANCELED) 09 (Given - Provider: Radha Chavira RN) 5 [...] 137 mcg 0529 (Given - Provider: Waldo Castaneda, VAMSI) 137 mcg, Oral, EVERY MORNING, First dose [...] 150 0 (New Bag - Provider: Cami Baxter, VAMSI) 0053 (New Bag - Provider: Waldo garcia [...] Cami Baxter RN)1341 (Given - Provider: Angela Breaux, RN)1420 (Given - Provider: Cami Baxter, VAMSI) 0.2-0.4 mg, Intravenous, EVERY 5 MIN PRN , Starting Wed03/28/13 at 1249, Until Tu03/28/13 at 1636, Pain, For moderate pain give: [...] override documented in this encounter Care Teams Library Technical Assistant Relationship Specialty Start Date End Date Angela Holliday APRN PCP - General 01/25/13 04/15/15 [address] [place] [address] documented as of this encounter
--- OUTSIDE RECORDS SUMMARY | 2022-03-11 11:35 | XMS_ITS | Encounter Summary ---
:1945 Author Organization [facility] [place] [address] Care Team Providers Name Role Phone Som Holliday APRN Primary Care Provider Encounter Details Date Type Department Care Team Description 04/11/2014 Procedure visit Gastroenterology at [facility] Esophageal reflux [facility] Luz Winchester RN (Primary Dx) [place] [address] Social History Tobacco Use Types Packs/Day Years Used Date Former Smoker Alcohol Use Standard Drinks/Week Comments No 0 (1 standard drink = 0.6 oz pure alcoho l) Sex Assigned at Date Recorded Not on file documented as of this encounter Progress Notes Adalid Can MD - 04/13/2014 3:43 PM EDT ESOPHAGEAL MANOMETRY Don Fatima Male, 69 yrs, 1945 PCP: SOM HOLLIDAY 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 METHODS Stationary esophageal manometry was performed with the [employer] esophageal motility system utilizing the Polygram software [...] of the esophagus. Adalid Can, PhD, MD tunnel elastic operator chainstitch, [facility] [employer] Section of Gastroenterology and Hepatology [facility] [place] [address] V: [phone] F: [phone] [facility]/gabriela CC/EC: PCP - staff msg copy 04/13/14 Henrique Taylor MD - fax copy 04/13/14 Luz Keller RN - 04/11/2014 8:14 AM EDT Esophageal manometry performed without difficulty and Was well tolerated. documented in this encounter Plan of Treatment Upcoming Encounters Date Type Specialty Care Team Description 03/26/2022 Office Visit Cardiology Vitaliy Nobles MD [facility] [address] [place] [place], [place] [address] (Wo rk) 05/28/2022 Appointment Cardiology Zulma Dolan MD [facility] [address] [place], [place] [address] (Wo rk) 05/28/2022 Laboratory Appointment Lab 05/28/2022 Office Visit Cardiology Zulma Dolan MD [facility] [place] [address] Liz Poole PA [facility] [place] [address] 06/10/2022 Office Visit Dermatology Laura Scherer MD [facility] DR TEJA GR-DERMAT [place], [place] [address] (Wo rk) documented as of this encounter Visit Diagnoses Diagnosis Esophageal reflux - Primary documented in this encounter Care Teams Sales Utility Representative Relationship Specialty Start Date End Date Som Holliday APRN PCP - General 01/25/13 04/15/[address] [place] [address] documented as of this encounter
--- OUTSIDE RECORDS SUMMARY | 2022-03-11 11:35 | XMS_ITS | Encounter Summary ---
:1945 Author Organization [facility] [place] [place] [address] Care Team Providers Name Role Phone MiyaAngela STACIE Primary Care Provider Reason for Visit Reason Onset Date Comments Advice Only 03/31/2013 Encounter Details Date Type Department Care Team Description 03/31/2013 Telephone Urology at [facility] Daniele Trejo III, MD Advice Only [facility] [place] [address] [place] [id number] [phone] (Wo rk) Social History Tobacco Use Types [...] Vitaliy Nobles MD [facility] CARDIOLOGY [place], [place] 0375 (Wo rk) 05/28/2022 Appointment Cardiology Zulma Dolan MD [facility] [place], [place] [address] (Wo rk) 05/28/2022 Laboratory Appointment Lab 05/28/2022 Office Visit Cardiology Zulma Dolan MD [facility] [place] [address] Liz Poole PA [facility] [place] [address] 06/10/2022 Office Visit Dermatology Laura Scherer MD [facility] DR TEJA GR-DERMAT [place], [place] 0[address] (Wo rk) documented as of this encounter Visit Diagnoses Not on filedocumented in this encounter Care Teams Assembler Product Relationship Specialty Start Date End Date Angela Holliday APRN PCP - General 01/25/13 04/15/[address] [place] [address] documented as of this encounter
--- OUTSIDE RECORDS SUMMARY | 2022-03-11 11:35 | XMS_ITS | Encounter Summary ---
:1945 Author Organization [facility] [place] [address] Care Team Providers Name Role Phone MiyaLokeshAngela STACIE Primary Care Provider Reason for Visit Reason Onset Date Comments Post-op Problem 04/05/2013 voiding trial Encounter Details Date Type Department Care Team Description 04/05/2013 Telephone Urology at [facility] Blade Smith, Post-op Problem [facility] (voiding trial) [place] [address] UROLOGY DEPT [place] [phone] (Wo rk) Social History Tobacco Use Types [...] Nobles MD [facility] [address] TADEO [place], [place] 0375 (Wo rk) 05/28/2022 Appointment Cardiology Zulma Dolan MD [facility] [address] [place], [place] [address] (Wo rk) 05/28/2022 Laboratory Appointment Lab 05/28/2022 Office Visit Cardiology Zulma Dolan MD [facility] [place] [address] Liz Poole PA [facility] [place] [address] 06/10/2022 Office Visit Dermatology Laura Scherer MD [facility] DR TEJA GR-DERMAT [place], [place] 0[address] (Wo rk) documented as of this encounter Visit Diagnoses Not on filedocumented in this encounter Care Teams Denture Contour Wire Specialist Relationship Specialty Start Date End Date Angela Holliday APRN PCP - General 01/25/13 04/15/[address] [place] [address] documented as of this encounter
--- OUTSIDE RECORDS SUMMARY | 2022-03-11 11:35 | XMS_ITS | Encounter Summary ---
:1945 Author Organization [facility] [place] [address] Care Team Providers Name Role Phone Angela Holliday APRN Primary Care Provider Reason for Visit Reason Comments Skin Check Encounter Details Date Type Department Care Team Description 07/31/2013 Follow-Up Dermatology at Rigoberto Forman eoplasm of unspecified nature of bone, soft tissue, and skin (Primary Dx); Abdelrahman HOOPER MD Seborrheic psoriasis- scalp and ingtergl uteal area; [address] [facility] Atypical ne[place] [address] [facility] [place], [place] 0375 (Wo rk) Social History Tobacco [...] CLINIC NOTE Date of service: 07/31/2013 Gregory Fatima : 1945 Provider: Rigoberto Garcia MD [...] you take antibiotics before procedures?no HPI Gregory Fatima is a 68 y.o. year old male. [...] Nobles MD [facility] DR [place]LE [place], [place] [address] (Wo rk) 05/28/2022 Appointment Cardiology Zulma Dolan MD [facility] [address] [place] 0[address] (Wo rk) 05/28/2022 Laboratory Appointment Lab 05/28/2022 Office Visit Cardiology Zulma Dolan MD [facility] [place] [address] Liz Poole PA [facility] [place] [address] 06/10/2022 Office Visit Dermatology Laura Scherer MD [facility] DR TEJA GR-DERMAT [place], [place] 0[address] (Wo rk) Scheduled Orders Name [...] Component Value Ref Test Analysis Performed At [facility] gist Range Method Time Signature Surgical CERNER Pathology ? [facility] Report ? Provider: ?? RIGOBERTO GARCIA III Pt. Name: ?? GREGORY FATIMA ?A ? Acc #: ?[id number] ? Pt. ? Col Date: ?? 07/31/2013 [...] ? infiltrate (see Comment). ? CR-0 ? 01/07/14 ? BJM ? 08/01/13 Verified by: ? [...] negative controls. ??These ? IHC studies provide [facility] pathologist with adjunctive diagnostic information. ? Antibody [...] 0.9 x 0.8 x 0.2 cm. ? [facility] ? Provider: ?? RIGOBERTO GARCIA III Pt. Name: ?? GREGORY FATIMA ?A ? Acc #: ?[id number] ? Pt. ? Col Date: ?? 07/31/2013 [...] Organization Address City/State/[place] [address] RAKESH VILLALOBOSENNIUM Specimen to Pathology (NON-OR) (07/31/2013 8:09 AM EST) Specimen Anatomical Collection Method Collection Time Receive d Time (Source) Location / / Volume Laterality AP Specimen 07/31/2013 8:09 AM 201 4 8:09 EST AM EST Narrative SAPPHIRENER MILLENNIUM - 07/31/2013 8:[address] Specimen requisition ordered. ??Separate Pathology report to follow Rigoberto Garcia III, MD PATHOLOGY/CYTOLOGY ORDERABLE S Performing Organization Address City/State/[place] [address] [facility] documented in this encounter Visit Diagnoses Diagnosis Neoplasm of unspecified nature of bone, soft tissue, and skin - Primary Seborrheic psoriasis- scalp and ingtergl uteal area Other psoriasis Atypical nevus of abdominal wall Benign neoplasm of skin of trunk, except scrotum documented in this encounter Care Teams In Store Marketer Relationship Specialty Start Date End Date Angela Holliday APRN PCP - General 01/25/13 04/15/[address] [place] [address] documented as of this encounter
--- OUTSIDE RECORDS SUMMARY | 2022-03-11 11:35 | XMS_ITS | Encounter Summary ---
:1945 Author Organization [place] [address] Care Team Providers Name Role Phone MiyaAngela STACIE Primary Care Provider Reason for Visit Reason Comments Post Op voiding trial Encounter Details Date Type Department Care Team Description 04/05/2013 Office Visit Urology at [facility] Darryl Egan, UTI ([facility] MD tract infection) [facility] (Primary Dx) [place] [address] UROLOGY DEPT [phone] [place], [place] 0375 Social History Tobacco Use Types [...] Nobles MD [facility] DR TADEO [place], [place] 0375 (Wo rk) 05/28/2022 Appointment Cardiology Zulma Dolan MD [facility] [place], [place] 0375 (Wo rk) 05/28/2022 Laboratory Appointment Lab 05/28/2022 Office Visit Cardiology Zulma Dolan MD [facility] [place] [address] Liz Poole PA [facility] [place] [address] 06/10/2022 Office Visit Dermatology Laura Scherer MD [facility] DR TEJA GR-DERMAT [place], [place] 0375 (Wo rk) documented as of this encounter Procedures Procedure Name Priority Date/Time Associated Diagnosis Comme nts URINE CULTURE Routine 04/05/2013 11:48 AM UTI (lower urinary R esults for this EDT tract infection) procedure a re in the results section . documented in this encounter Results Urine culture Clean Catch Urine (04/05/2013 11:48 AM EDT) Component Value Ref Test Analysis Performed At [facility] Range Method Time Signature Urine Culture CERNER ? Patient Name: GREGORY HOANG ? Or[facility]: [facility] ? MR#: [id number] ?LOC: ??5B ? /Sex: ??1945 (68 years), [...] S ? Patient: GREGORY HOANG ? MR#: [id number] ? FOOTNOTES ? (1) ? This organism [...] Address City/State/[place] [address] H[address] LABORATORY [facility] documented in this encounter Visit Diagnoses Diagnosis UTI (lower urinary tract infection) - Pr imary Urinary tract infection, site not specif ied documented in this encounter Care Teams Bread Wrapper Relationship Specialty Start Date End Date Angela Holliday APRN PCP - General 01/25/13 04/15/[address] [place] [address] documented as of this encounter
--- OUTSIDE RECORDS SUMMARY | 2022-03-11 11:35 | XMS_ITS | Encounter Summary ---
:1945 Author Organization [facility] [place] [address] Care Team Providers Name Role Phone MiyaAngela STACIE Primary Care Provider Reason for Visit Reason Comments Urinary Retention Encounter Details Date Type Department Care Team Description 05/16/2013 Follow-Up Urology at [facility] Blade Smith, Retention of urine [facility] (Primary Dx) [place] [address] UROLOGY DEPT [place] [id number] (Wo rk) Social History Tobacco Use Types [...] MD [facility] [address] TADEO [place], [place] 0[address] (Wo rk) 05/28/2022 Appointment Cardiology Zulma Dolan MD [facility] [place], [place] 0[address] (Wo rk) 05/28/2022 Laboratory Appointment Lab 05/28/2022 Office Visit Cardiology Zulma Dolan MD [facility] [place] [address] Liz Poole PA [facility] [place] [address] 06/10/2022 Office Visit Dermatology Laura Scherer MD [facility] [address] TEJA GR-DERMAT [place], [place] 0[address] (Wo rk) documented as of this encounter Visit Diagnoses Diagnosis Retention of urine - Primary Retention of urine, unspecified documented in this encounter Care Teams Quality Control Lab Tech Relationship Specialty Start Date End Date Angela Holliday APRN PCP - General 01/25/13 04/15/[address] [place] [address] documented as of this encounter
--- OUTSIDE RECORDS SUMMARY | 2022-03-11 11:35 | XMS_ITS | Encounter Summary ---
:1945 Author Organization [facility] [place] [address] Care Team Providers Name Role Phone MiyaAngela STACIE Primary Care Provider Encounter Details Date Type Department Care Team Description 11/27/2013 Orders Only Urology at [facility] Blade Smith, Urinary retention [facility] (Primary Dx) [place] [address] UROLOGY DEPT [place] [id number] Social History Tobacco Use Types Packs/Day Years [...] MD [facility] [address] TADEO [place], [place] 0[address] (Wo rk) 05/28/2022 Appointment Cardiology Zulma Dolan MD [facility] er [address] [place], [place] [address] (Wo rk) 05/28/2022 Laboratory Appointment Lab 05/28/2022 Office Visit Cardiology Zulma Dolan MD [facility] [place] [address] Liz Poole PA [facility] [place] [address] 06/10/2022 Office Visit Dermatology Laura Scherer MD [facility] ER DR TEJA RG-DERMAT [place], [place] 0375 (Wo rk) documented as of this encounter Results (ABNORMAL) PSA (11/28/2013 8:02 AM EDT) Analysis [facility] At [facility] Time Signature PSA Total 4.07 (H) 0.00 - CERNER (Ultrasensitiv 4.00 ng/mL MILLENNIUM e) Specimen Anatomical Collection Method Collection Time Receive d Time (Source) Location / / Volume Laterality Blood specimen 11/28/2013 8:02 AM 014 8:05 (specimen) EDT AM EDT Resulting Agency Comment Spec In Lab Blade Smith MD CHEMISTRY ORDERABLES Performing Organization Address City/State/[place] [address] [facility] documented in this encounter Visit Diagnoses Diagnosis Urinary retention - Primary Retention of urine, unspecified documented in this encounter Care Teams Fish Hatchery Manager Relationship Specialty Start Date End Date Angela Holliday APRN PCP - General 01/25/13 04/15/[address] [place] [address] documented as of this encounter
--- OUTSIDE RECORDS SUMMARY | 2022-03-11 11:35 | XMS_ITS | Encounter Summary ---
:1945 Author Organization [facility] [place] [address] Care Team Providers Name Role Phone Lovely Vicente MD Primary Care Provider Reason for Visit Reason Onset Date Comments Medication Refill 06/19/2016 Encounter Details Date Type Department Care Team Description 06/19/2016 Refill Endocrinology at [facility] Luz Stallings MD [facility] [place] [address] ENDOCRINOLOGY DEPT [phone] [place], [place] [address] (Wo lissa) Social History Tobacco [...] [facility] ER DR CARLYLE [place] 0[address] (Wo rk) 05/28/2022 Appointment Cardiology Zulma Dolan MD [facility] er Dr [place] 0375 (Wo rk) 05/28/2022 Laboratory Appointment Lab 05/28/2022 Office Visit Cardiology Zulma Dolan MD [facility] [place] [address] Liz Poole PA [facility] [place] [address] 06/10/2022 Office Visit Dermatology Laura Scherer MD [facility] ER DR TEJA GR-DERMAT [place], [place] 0375 (Wo rk) documented as of this encounter Visit Diagnoses Not on filedocumented in this encounter Care Teams Biology Tutor Relationship Specialty Start Date End Date Lovely Vicente MD PCP - General 04/16/[address] [place] [address] documented as of this encounter
--- OUTSIDE RECORDS SUMMARY | 2022-03-11 11:35 | XMS_ITS | Encounter Summary ---
:1945 Author Organization [facility] [place] [address] Care Team Providers Name Role Phone Angela Holliday APRN Primary Care Provider Reason for Visit Reason Comments Benign Prostatic Hypertrophy Encounter Details Date Type Department Care Team Description 11/28/2013 Follow-Up Urology at [facility] Blade Smith, Urinary retention (Primary D x); [facility] BPH (benign prostatic hyperplasia) [place] [address] UROLOGY DEPT [place], [place] 0[address] (Wo rk) Social History Tobacco [...] Vitaliy Nobles MD [facility] DR TADEO [place], [place] 0[address] (Wo rk) 05/28/2022 Appointment Cardiology Zulma Dolan MD [facility] [place], [place] 0[address] (Wo rk) 05/28/2022 Laboratory Appointment Lab 05/28/2022 Office Visit Cardiology Zulma Dolan MD [facility] [place] [address] Liz Poole PA [facility] [place] [address] 06/10/2022 Office Visit Dermatology Laura Scherer MD [facility] DR TEJA GR-DERMAT [place], [place] 0375 (Wo rk) documented as of [...] Address City/State/[place] [address] [facility] documented in this encounter Visit Diagnoses Diagnosis Urinary retention - Primary Retention of urine, unspecified BPH (benign prostatic hyperplasia) Unspecified hyperplasia of prostate with out urinary obstruction and other lower urinary tract symptoms (LUTS) documented in this encounter Care Teams Casing Material Weigher Relationship Specialty Start Date End Date Angela Holliday APRN PCP - General 01/25/13 04/15/[address] [place] [address] documented as of this encounter
--- OUTSIDE RECORDS SUMMARY | 2022-03-11 11:35 | XMS_ITS | Encounter Summary ---
:1945 Author Organization [facility] [place] [address] Care Team Providers Name Role Phone Angela Holliday APRN Primary Care Provider Encounter Details Date Type Department Care Team Description 04/30/2014 Orders Only Endocrinology at [facility] Albertina Palmer, Thyroid cancer [facility] Jorge Boyer MD (Primary Dx) [place] [address] [facility] [phone] CENTER ENDOCRINOLOGY DEPT [place], [place] 0[address] Social History Tobacco Use [...] Vitaliy Nobles MD [facility] ER CARDIOLOGY [place], [place] 0375 (Wo rk) 05/28/2022 Appointment Cardiology Zulma Dolan MD [facility] [place], [place] [address] (Wo rk) 05/28/2022 Laboratory Appointment Lab 05/28/2022 Office Visit Cardiology Zulma Dolan MD [facility] [place] [address] Liz Poole PA [facility] [place] [address] 06/10/2022 Office Visit Dermatology Laura Scherer MD [facility] DR TEJA GR-DERMAT [place], [place] 0375 (Wo rk) documented as of this encounter Visit Diagnoses Diagnosis Thyroid cancer - Primary Malignant neoplasm of thyroid gland documented in this encounter Care Teams Online Merchant Relationship Specialty Start Date End Date Angela Holliday APRN PCP - General 01/25/13 04/15/[address] [place] [address] documented as of this encounter
--- OUTSIDE RECORDS SUMMARY | 2022-03-11 11:35 | XMS_ITS | Encounter Summary ---
:1945 Author Organization [facility] [place] [address] Care Team Providers Name Role Phone MiyaAngela STACIE Primary Care Provider Encounter Details Date Type Department Care Team Description 04/26/2014 Office Visit Endocrinology at [facility] Albertina Palmer, Papillary thyroid [facility] [place] [address] CENTER [phone] ENDOCRINOLOGY DEPT [place] [address] Social History Tobacco Use Types Packs/Day Years [...] [place]. Rosalind Palmer Endocrine Staff Physician [facility] Rosalind Palmer [...] yr Rosalind Palmer Endocrine Staff Physician [facility] documented in this encounter Plan of Treatment Upcoming Encounters Date Type Specialty Care Team Description 03/26/2022 Office Visit Cardiology Vitaliy Nobles MD [facility] DR CARLYLE [place], [place] 0[address] (Wo rk) 05/28/2022 Appointment Cardiology Zulma Dolan MD [facility] Dr [place], [place] [address] (Wo rk) 05/28/2022 Laboratory Appointment Lab 05/28/2022 Office Visit Cardiology Zulma Dolan MD [facility] [place] [address] Liz Poole PA [facility] [place] [address] 06/10/2022 Office Visit Dermatology Laura Scherer MD [facility] DR TEJA GR-DERMAT [place], [place] 0[address] (Wo rk) documented as [...] athologist Signature Thyroglobulin <0.4 <=54.9 CERNER ng/mL [facility] Comment: Interpret with caution. Tg levels [...] than those obtained with T4 withdrawal protocol ([place] BR et al. J Clin Endo Metab 1999;84:1029-2809). Assay performed using the DPC Immulite T [...] Palmer MD CHEMISTRY ORDERABLES Performing Organization Address City/[facility]/[place] [address] CERNER MILLENNIUM (ABNORMAL) TSH (04/26/2014 9:07 AM EDT) P athologist Signature TSH 4.46 (H) 0.27 - 4.20 CERNER mcIU/mL MILLENNIUM Specimen Anatomical Collection Method Collection Time Receive d Time (Source) Location / / Volume Laterality Blood specimen 04/26/2014 9:07 AM 014 9:12 (specimen) EDT AM EDT Resulting Agency Comment Spec In Lab Rosalind Palmer MD CHEMISTRY ORDERABLES Performing Organization Address City/[facility]/[place] [address] CERNER MILLENNIUM documented in this encounter Visit Diagnoses Diagnosis Papillary thyroid carcinoma Malignant neoplasm of thyroid gland documented in this encounter Care Teams Steel Engraver Relationship Specialty Start Date End Date Angela Holliday APRN PCP - General 01/25/13 04/15/[address] [place] [address] documented as of this encounter
--- OUTSIDE RECORDS SUMMARY | 2022-03-11 11:35 | XMS_ITS | Encounter Summary ---
:1945 Author Organization [facility] [place] [address] Care Team Providers Name Role Phone Lovely Vicente MD Primary Care Provider Reason for Visit Reason Comments Medication Refill Encounter Details Date Type Department Care Team Description 05/10/2015 Refill [facility]ocrinology at [facility] Rosalind Covarrubias, [facility] Jorge [place] [address] [facility] [phone] ENDOCRINOLOGY [place], [place] 0[address] (Mikayla alcaraz) Social History Tobacco [...] [facility] ER DR CARLYLE [place], [place] [address] (Wo rk) 05/28/2022 Appointment Cardiology Zulma Dolan MD [facility] er Dr [place] 0[address] (Wo rk) 05/28/2022 Laboratory Appointment Lab 05/28/2022 Office Visit Cardiology Zulma Dolan MD [facility] [place] [address] Liz Poole PA [facility] Dr [place] [address] 06/10/2022 Office Visit Dermatology Laura Scherer MD [facility] ER DR LEZAMA RD-DERMAT [place], [place] 0[address] (Wo rk) documented as of this encounter Visit Diagnoses Not on filedocumented in this encounter Care Teams Extruding Machine Operator Relationship Specialty Start Date End Date Lovely Vicente MD PCP - General 04/16/[address] [place] [address] documented as of this encounter
--- OUTSIDE RECORDS SUMMARY | 2022-03-11 11:35 | XMS_ITS | Encounter Summary ---
:1945 Author Organization [facility] [place] [address] Care Team Providers Name Role Phone Lovely Vicente MD Primary Care Provider Encounter Details Date Type Department Care Team Description 09/03/2016 Laboratory Appointment Lab at [facility] Hx of [facility] [place] [address] Social History Tobacco Use Types Packs/Day Years [...] MD [facility] ER DR [place]LE [place], [place] [address] (Wo rk) 05/28/2022 Appointment Cardiology Zulma Dolan MD [facility] Dr [place] [address] (Wo rk) 05/28/2022 Laboratory Appointment Lab 05/28/2022 Office Visit Cardiology Zulma Dolan MD [facility] [place] [address] Liz Poole PA [facility] [place] [address] 06/10/2022 Office Visit Dermatology Laura Scherer MD [facility] ER DR TEJA GR-DERMAT [place], [place] 0[address] (Wo rk) documented [...] <0.4 <=54.9 [facility] ng/mL [facility] Comment: Interpret with caution. Tg levels [...] BR et al. J Clin Endo Metab 1999;84:3287-2877). Assay performed using the [employer] T g immunometric assay. (lowest detection limit [...] Address City/State/ZIP Code Phon e Number [address] TSH (09/03/2016 11:07 AM EST) P athologist Signature TSH 3.01 0.27 - 4.20 [facility] mcIU/mL [facility] Specimen Anatomical Collection Method Collection Time Receive d Time (Source) Location / / Volume Laterality Blood specimen 09/03/2016 11:07 7 (specimen) AM EST 11:22 AM EST Resulting Agency Comment Spec In Lab Luz Prescott MD CHEMISTRY ORDERABLES Performing Organization Address City/[facility]/[place] [address] documented in this encounter Visit Diagnoses Diagnosis Hx of papillary thyroid carcinoma Personal history of malignant neoplasm o f thyroid documented in this encounter Care Teams Institutional Custodian Relationship Specialty Start Date End Date Lovely Vicente MD PCP - General 04/16/[address] [place] [address] [address] [place] [address] documented as of this encounter
--- OUTSIDE RECORDS SUMMARY | 2022-03-11 11:35 | XMS_ITS | Encounter Summary ---
:1945 Author Organization [facility] [place] [address] Care Team Providers Name Role Phone Lovely Vicente MD Primary Care Provider Reason for Visit Reason Comments Skin Check Encounter Details Date Type Department Care Team Description 06/05/2016 Office Visit Dermatology at [facility] istory of melanoma; Abdelrahman HOOPER MD Seborrheic keratosis; [address] [facility] [place] (actinic keratosis); [place] [address] Multiple nevi; [phone] [facility] [address]-DERMATOLGY [place], [place] [address] Social History Tobacco Use Types [...] Diagnostic, Drum (ACCU-CHEK COMPACT TEST) Strip by [facility].(Non- Drug; Combo Route) route [...] encounter. Rigoberto Garcia MD Section of Dermatology [facility] documented in this encounter Plan of Treatment Upcoming Encounters Date Type Specialty Care Team Description 03/26/2022 Office Visit Cardiology Vitaliy Nboles MD [facility] CARDIOLOGY [place], [place] [address] (Wo rk) 05/28/2022 Appointment Cardiology Zulma Dolan MD [facility] [place], [place] [address] (Wo rk) 05/28/2022 Laboratory Appointment Lab 05/28/2022 Office Visit Cardiology Zulma Dolan MD [facility] [place] [address] Liz Poole PA [facility] [place] [address] 06/10/2022 Office Visit Dermatology Laura Scherer MD [facility] DR TEJA GR-DERMAT [place], [place] [address] (Wo rk) documented as of this encounter Visit Diagnoses Diagnosis History of melanoma Personal history of malignant melanoma o f skin Seborrheic keratosis Other seborrheic keratosis [place] (actinic keratosis) Actinic keratosis Multiple nevi Benign neoplasm of skin, site unspecifie d Scar Scar condition and fibrosis of skin documented in this encounter Care Teams Repertoire Manager Relationship Specialty Start Date End Date Lovely Vicente MD PCP - General 04/16/[address] [place] [address] documented as of this encounter
--- OUTSIDE RECORDS SUMMARY | 2022-03-11 11:35 | XMS_ITS | Encounter Summary ---
:1945 Author Organization [facility] [place] [address] Care Team Providers Name Role Phone Angela Holliday STACIE Primary Care Provider Encounter Details Date Type Department Care Team Description 04/04/2013 Telephone Urology at [facility] Parker Sanchez MD [facility] [place] [address] UROLOGY DEPT [phone] [place], [place] [address] (Wo rk) Social History Tobacco [...] [facility] DR CARLYLE [place] [address] (Wo rk) 05/28/2022 Appointment Cardiology Zulma Dolan MD [facility] [place], [place] [address] (Wo rk) 05/28/2022 Laboratory Appointment Lab 05/28/2022 Office Visit Cardiology Zulma Dolan MD [facility] [place] [address] Liz Poole PA [facility] [place] [address] 06/10/2022 Office Visit Dermatology Laura Scherer MD [facility] DR TEJA GR-DERMAT [place], [place] 0[address] (Wo rk) documented as of this encounter Visit Diagnoses Not on filedocumented in this encounter Care Teams Edging Machine Operator Relationship Specialty Start Date End Date Angela Holliday APRN PCP - General 01/25/13 04/15/[address] [place] [address] documented as of this encounter
--- OUTSIDE RECORDS SUMMARY | 2022-03-11 11:35 | XMS_ITS | Encounter Summary ---
:1945 Author Organization [facility] [place] [address] Care Team Providers Name Role Phone Angela Holliday APRN Primary Care Provider Encounter Details Date Type Department Care Team Description 03/30/2013 Telephone General Surgery at [facility] Cliff Nevarez, [place] [address] Social History Tobacco Use Types Packs/Day [...] Nobles MD [facility] CARDIOLOGY [place], [place] 0[address] (Wo rk) 05/28/2022 Appointment Cardiology Zulma Dolan MD [facility] [address] [place], [place] [address] (Wo rk) 05/28/2022 Laboratory Appointment Lab 05/28/2022 Office Visit Cardiology Zulma Dolan MD [facility] [place] [address] Liz Poole PA [facility] [place] [address] 06/10/2022 Office Visit Dermatology Laura Scherer MD [facility] DR TEJA GR-DERMAT [place], [place] [address] (Wo rk) documented as of this encounter Visit Diagnoses Not on filedocumented in this encounter Care Teams Neurosurgical Physician Assistant Relationship Specialty Start Date End Date Angela Holliday APRN PCP - General 01/25/13 04/15/[address] [place] [address] documented as of this encounter
--- OUTSIDE RECORDS SUMMARY | 2022-03-11 11:35 | XMS_ITS | Encounter Summary ---
:1945 Author Organization [facility] [place] [address] Care Team Providers Name Role Phone MiyaLokeshAngela STACIE Primary Care Provider Encounter Details Date Type Department Care Team Description 04/04/2013 Orders Only General Surgery at Manny Mcknight thyroid [facility] MD Eliseo carcinoma (Primary Dx) [facility] [place] [address] GENERAL SURGERY [phone] [place], [place] 0[address] Social History Tobacco Use [...] [facility] ER [address] [place]LE [place], [place] [address] (Wo rk) 05/28/2022 Appointment Cardiology Zulma Dolan MD [facility] [address] [place] [address] (Wo rk) 05/28/2022 Laboratory Appointment Lab 05/28/2022 Office Visit Cardiology Zulma Dolan MD [facility] [address] Liz Poole PA [facility] [place] [address] 06/10/2022 Office Visit Dermatology Laura Scherer MD [facility] ER DR TEJA GR-DERMAT [place], [place] [address] (Wo rk) documented as of this encounter Visit Diagnoses Diagnosis Papillary thyroid carcinoma - Primary Malignant neoplasm of thyroid gland documented in this encounter Care Teams Glass Toughening Operator Relationship Specialty Start Date End Date Angela Holliday APRN PCP - General 01/25/13 04/15/[address] [place] [address] documented as of this encounter
--- OUTSIDE RECORDS SUMMARY | 2022-03-11 11:35 | XMS_ITS | Encounter Summary ---
:1945 Author Organization [facility] [place] [address] Care Team Providers Name Role Phone Lovely Vicente MD Primary Care Provider Encounter Details Date Type Department Care Team Description 09/03/2016 Office Visit Endocrinology at [facility] Maria Ines Stall[facility] of [facility] [place] [address] [place] [address] ENDOCRINOLOGY DEPT [place], [place] 0[address] Social History Tobacco Use Types [...] to his magnesium pill. LUZ PRESCOTT MD Regulatory Specialistcase management rn Section of Endocrinology [facility] [...] sonographic evidence of recurrence. LUZ PRESCOTT MD Regulatory Specialistcase management rn Section of Endocrinology [facility] documented in this encounter Plan of Treatment Upcoming Encounters Date Type Specialty Care Team Description 03/26/2022 Office Visit Cardiology Vitaliy Nobles MD [facility] [address] TADEO [place], [place] 0[address] (Wo rk) 05/28/2022 Appointment Cardiology Zulma Dolan MD [facility] [place], [place] 0[address] (Wo rk) 05/28/2022 Laboratory Appointment Lab 05/28/2022 Office Visit Cardiology Zulma Dolan MD [facility] [place] [address] Liz Poole PA [facility] [place] [address] 06/10/2022 Office Visit Dermatology Laura Scherer MD [facility] DR TEJA GR-DERMAT [facility] [place], [place] [address] (Wo rk) documented as of this encounter Results Thyroglobulin (09/07/2017 2:41 PM EST) athologist Signature Thyroglobulin 1.4 <=54.9 KATALINA RYAN ng/mL [facility] Comment: Thyroglobulin levels may be unreliable [...] [facility]/ZIP Code Phon e Number [address] TSH (09/07/2017 2:41 PM EST) P athologist Signature TSH 3.93 0.27 - 4.20 [facility] mlU/ML [facility] Specimen Anatomical Collection Method Collection Time Receive d Time (Source) Location / / Volume Laterality Blood specimen 09/07/2017 2:41 PM 018 2:46 (specimen) EST PM EST Resulting Agency Comment Spec In Lab Luz Prescott MD CHEMISTRY ORDERABLES Performing Organization Address City/[facility] Phon e Number [address] Thyroglobulin (09/03/2016 11:07 AM EST) P athologist Signature Thyroglobulin <0.4 <=54.9 [facility] ng/mL [facility] Comment: Interpret with caution. Tg levels [...] than those obtained with T4 withdrawal protocol ([place] BR et al. J Clin Endo Metab 1999;84:2492-6244). Assay performed using the DPC Immulite T [...] [facility]/ZIP Code Phon e Number [address] TSH (09/03/2016 11:07 AM EST) P athologist Signature TSH 3.01 0.27 - 4.20 [facility] mcIU/mL [facility] Specimen Anatomical Collection Method Collection Time Receive d Time (Source) Location / / Volume Laterality Blood specimen 09/03/2016 11:07 7 (specimen) AM EST 11:22 AM EST Resulting Agency Comment Spec In Lab Luz Prescott MD CHEMISTRY ORDERABLES Performing Organization Address City/[facility]/[place]IP [place] [address] documented in this encounter Visit Diagnoses Diagnosis Hx of papillary thyroid carcinoma Personal history of malignant neoplasm o f thyroid documented in this encounter Care Teams Associate Professor Of Chemistry Relationship Specialty Start Date End Date Lovely Vicente MD PCP - General 04/16/[address] [place] [address] documented as of this encounter
--- OUTSIDE RECORDS SUMMARY | 2022-03-11 11:35 | XMS_ITS | Encounter Summary ---
:1945 Author Organization [facility] [place] [address] Care Team Providers Name Role Phone Angela Holliday APRN Primary Care Provider Reason for Visit Reason Comments Other Encounter Details Date Type Department Care Team Description 08/01/2013 Telephone Dermatology at [facility] Rigoberto Garcia III, [address] [place] [address] [facility] [phone] TEJA MARIE-DERMAT [place], [place] [address] (Wo rk) Social History Tobacco [...] Component Value Surgical Pathology Final Report [facility] Provider: RIGOBERTO GARCIA III Pt. Name: DON HOANG Acc #: [id number] Pt. Col Date: 07/31/2013 /Sex: 1945,(68 years),Male Rec Date: 07/31/2013 LOC: [facility] SURGICAL PATHOLOGY ---Pathologic Diagnosis--- Skin, right abdomen, shave biopsy: Lentiginous compound nevus with moderate atypia of the intraepidermal component, extending to the peripheral specimen edge, ulcerated, associated with spongiosis and superficial perivascular lymphoeosinophilic infiltrate (see Comment). CR-0 08/01/13 BJM 08/01/13 Verified by: Ian STRANGE, PhD, [facility] Dermatopathologist (Electronic Signature) The attending pathologist whose [...] Vitaliy Nobles MD [facility] DR THOMAS [place], [place] [address] (Wo rk) 05/28/2022 Appointment Cardiology Zulma Dolan MD [facility] [address] [place] [address] (Wo rk) 05/28/2022 Laboratory Appointment Lab 05/28/2022 Office Visit Zulma Garrison MD [facility] [place] [address] Liz Poole PA [facility] [place] [address] 06/10/2022 Office Visit Dermatology Laura Scherer MD [facility] ER DR TEJA MARIE-DERMAT [place], [place] [address] (Wo rk) documented as of this encounter Visit Diagnoses Not on filedocumented in this encounter Care Teams Railroad Carman Relationship Specialty Start Date End Date Angela Holliday APRN PCP - General 01/25/13 04/15/[address] [place] [address] documented as of this encounter
--- OUTSIDE RECORDS SUMMARY | 2022-03-11 11:35 | XMS_ITS | Encounter Summary ---
:1945 Author Organization [facility] [place] [address] Care Team Providers Name Role Phone Angela Holliday APRN Primary Care Provider Encounter Details Date Type Department Care Team Description 04/05/2013 Office Visit Urology at [facility] [place] [address] Social History Tobacco Use Types Packs/Day [...] MD [facility] ER DR CARLYLE [place] [address] (Wo rk) 05/28/2022 Appointment Cardiology Zulma Dolan MD [facility] er Dr [place] [address] (Wo rk) 05/28/2022 Laboratory Appointment Lab 05/28/2022 Office Visit Cardiology Zulma Dolan MD [facility] [place] [address] Liz Poole PA [facility] [place] [address] 06/10/2022 Office Visit Dermatology Laura Scherer MD [facility] DR TEJA GR-DERMAT [place], [place] [address] (Wo rk) documented as of this encounter Visit Diagnoses Not on filedocumented in this encounter Care Teams Lcac Operator Relationship Specialty Start Date End Date Angela Holliday APRN PCP - General 01/25/13 04/15/[address] [place] [address] documented as of this encounter
--- OUTSIDE RECORDS SUMMARY | 2022-03-11 11:36 | XMS_ITS | Encounter Summary ---
:1945 Author Organization [facility] [place] [address] Care Team Providers Name Role Phone NeilSom conner STACIE Primary Care Provider Reason for Visit Reason Comments Establish Care OBST GOITER Encounter Details Date Type Department Care Team Description 01/25/2013 Office Visit General Surgery at Manny Mcknight er colloid, toxic, [facility] MD Eliseo nodular (Primary Dx) [facility] [place], [place] GENERAL SURGERY [address] [place], [place] [address] [phone] Social History Tobacco Use Types Packs/Day Years [...] the thyroid gland were obtained using a [employer] MicroMaxx and an HFL38/13-6 broadband linear array [...] agrees to proceed. Will sign in through [facility]. Consent is signed. Send copy to Dr. SOM HOLLIDAY APRN and Elijah Elias MD. documented in this encounter Plan of Treatment Upcoming Encounters Date Type Specialty Care Team Description 03/26/2022 Office Visit Cardiology Vitaliy Nobles MD [facility] DR TADEO [place], [place] [address] (Wo rk) 05/28/2022 Appointment Cardiology Zulma Dolan MD [facility] [place], [place] 0[address] (Wo rk) 05/28/2022 Laboratory Appointment Lab 05/28/2022 Office Visit Cardiology Zulma Dolan MD [facility] [place] [address] Liz Poole PA [facility] [place] [address] 06/10/2022 Office Visit Dermatology Laura Scherer MD [facility] DR TEJA GR-DERMAT [place], [place] [address] (Wo rk) documented as [...] 406 ms MUSE SYSTEM (Bezet) Calculated P [place] 52 degrees MUSE SYSTEM Calculated R [place] 0 degrees MUSE SYSTEM Calculated T [place] 40 degrees MUSE SYSTEM INTERPRETATION Normal sinus [...] storm documented in this encounter Care Teams Associate Dentist Relationship Specialty Start Date End Date Som Holliday APRN PCP - General 01/25/13 04/15/[address] [place] [address] documented as of this encounter
--- OUTSIDE RECORDS SUMMARY | 2022-03-11 11:36 | XMS_ITS | Encounter Summary ---
:1945 Author Organization [facility] [place] [address] Care Team Providers Name Role Phone Angela Holliday APRN Primary Care Provider Reason for Referral Surgical (Routine) - Closed Specialty Diagnoses / Procedures Referred By Contact Refer red To Contact General Surgery Diagnoses Elijah Villagomez MD Colacchio, Thomas A, MD [address] [place] [address] [place] [address] [place] [address] Phone: Fax: Referral ID Status Reason Start Date Expiration Date Visits V isits Requested Authorized [id number] Closed Specialty 01/25/2013 07/24/2013 1 1 Service Requested Reason for Visit Reason Comments Thyroid Problem Encounter Details Date Type Department Care Team Description 01/25/2013 Office Visit Endocrinology at [facility] Elijah Fuentes Goiter (Primary Dx) [facility] [address] [place] [address] [place] [address] [phone] Social History Tobacco Use Types Packs/Day Years [...] documented in this encounter Progress Notes Elijah Enciso MD - 01/25/2013 10:06 AM EDT Patient [...] History 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 All [...] the thyroid gland were obtained using a [employer]x and an HFL38/13-6 broadband linear array transducer. [...] Modules accepted: Orders Addendum Note - Elijah Enciso MD - 01/25/2013 12:04 PM EDT Addended by: ELIJAH ENCISO on: 01/25/2013 12:04 PM Modules accepted: Orders documented in this encounter Plan of Treatment Upcoming Encounters Date Type Specialty Care Team Description 03/26/2022 Office Visit Cardiology Vitaliy Nobles MD [facility] DR CARLYLE [place], [place] [address] (Wo rk) 05/28/2022 Appointment Cardiology Zulma Dolan MD [facility] [address] [place] 0[address] (Wo rk) 05/28/2022 Laboratory Appointment Lab 05/28/2022 Office Visit Cardiology Zulma Dolan MD [facility] [place] [address] Liz Poole PA [facility] [place] [address] 06/10/2022 Office Visit Dermatology Laura Scherer MD [facility] DR TEJA GR-DERMAT [place] [address] (Wo rk) Scheduled Referrals Name Type Priority [...] Resulting Agency Comment Spec In Lab Elijah Enciso MD CHEMISTRY ORDERABLES Performing Organization Address City/State/[place] [address] CERNER MILLENNIUM documented in this encounter Visit Diagnoses Diagnosis Goiter - Primary Goiter, unspecified documented in this encounter Care Teams Metal Cans Supervisor Relationship Specialty Start Date End Date Angela Holliday APRN PCP - General 01/25/13 04/15/[address] [place] [address] documented as of this encounter
--- OUTSIDE RECORDS SUMMARY | 2022-03-11 11:36 | XMS_ITS | Encounter Summary ---
:1945 Author Organization [facility] [address] Care Team Providers Name Role Phone Angela Holliday APRN Primary Care Provider Encounter Details Date Type Department Care Team Description 01/25/2013 Clinical [place] [address] Social History Tobacco Use Types Packs/Day [...] MD [facility] DR TADEO [place], [place] [address] (Wo rk) 05/28/2022 Appointment Cardiology Zulma Dolan MD [facility] [place], [place] [address] (Wo rk) 05/28/2022 Laboratory Appointment Lab 05/28/2022 Office Visit Cardiology Zulma Dolan MD [facility] [place] [address] Liz Poole PA [facility] [place] [address] 06/10/2022 Office Visit Dermatology Laura Scherer MD [facility] DR TEJA GR-DERMAT [place], [place] [address] (Wo rk) documented as of this encounter Visit Diagnoses Not on filedocumented in this encounter Care Teams Pot Maker Relationship Specialty Start Date End Date Angela Holliday APRN PCP - General 01/25/13 04/15/[address] [place] [address] documented as of this encounter
--- OUTSIDE RECORDS SUMMARY | 2022-03-11 11:36 | XMS_ITS | Encounter Summary ---
:1945 Author Organization [facility] [place] [address] Care Team Providers Name Role Phone Unknown Primary Care Provider Unavailable Reason for Visit Reason Comments Other Encounter Details Date Type Department Care Team Description 10/05/2012 Telephone Dermatology at [facility] Rigoberto Garcia III, [address] [place] [address] [facility] [phone] TEJA MARIE-DERMAT [place] [address] (Wo rk) Social History Tobacco Use Types [...] Vitaliy Nobles MD [facility] DR TADEO [place], [place] 0[address] (Wo rk) 05/28/2022 Appointment Cardiology Zulma Dolan MD [facility] [address] [place], [place] [address] (Wo rk) 05/28/2022 Laboratory Appointment Lab 05/28/2022 Office Visit Cardiology Zulma Dolan MD [facility] [place] [address] Liz Poole PA [facility] [place] [address] 06/10/2022 Office Visit Dermatology Laura Scherer MD [facility] DR LE[address]-DERMAT [place], [place] [address] (Wo rk) documented as of this encounter Visit Diagnoses Not on filedocumented in this encounter Care Teams Leather Staker Relationship Specialty Start Date End Date Unknown PCP - General 10/04/12 01/24/13 None documented as of this encounter
--- OUTSIDE RECORDS SUMMARY | 2022-03-11 11:36 | XMS_ITS | Encounter Summary ---
:1945 Author Organization [facility] [place] [address] Care Team Providers Name Role Phone Brody Berrios MD Primary Care Provider Reason for Visit Reason Comments Annual Exam Encounter Details Date Type Department Care Team Description 09/22/2011 Follow-Up Dermatology Arik [place] Psoriasis (Primary Dx); [facility] MD Jorge Personal history of other malignant neop lasm of skin Drive [place] [phone] DERMATOLOGY DEPT . 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 His only complaints tail bone and [...] Nobles MD [facility] CARDIOLOGY [place], [place] 0[address] (Wo rk) 05/28/2022 Appointment Cardiology Zulma Dolan MD [facility] Dr [place], [place] [address] (Wo rk) 05/28/2022 Laboratory Appointment Lab 05/28/2022 Office Visit Cardiology Zulma Dolan MD [facility] [place] [address] Liz Poole PA [facility] [place] [address] 06/10/2022 Office Visit Dermatology Laura Scherer MD [facility] DR TEJA GR-DERMAT [place], [place] [address] (Wo rk) documented as of this encounter Visit Diagnoses Diagnosis Psoriasis - Primary Other psoriasis Personal history of other malignant neop lasm of skin documented in this encounter Care Teams Home Care Manager Relationship Specialty Start Date End Date Brody Berrios MD PCP - General 09/22/11 10/03/[address] [place] [address] documented as of this encounter
--- OUTSIDE RECORDS SUMMARY | 2022-03-11 11:36 | XMS_ITS | Encounter Summary ---
:1945 Author Organization [facility] Address [facility] [place] [address] Care Team Providers Name Role Phone Unknown Primary Care Provider Unavailable Reason for Visit Reason Comments Skin Check Encounter Details Date Type Department Care Team Description 10/04/2012 Follow-Up Dermatology at Rigoberto Forman soriasis (Primary Dx); Abdelrahman HOOPER MD Neoplasm of unspecified nature of bone, soft tissue, and skin; [address] [facility] Skin lesion of chest wall; [place] [address] Seborrheic psoriasis- scalp and ingtergl uteal area [phone] [facility][1]-DERMATOLGY [place], [place] [address] (Wo rk) Social History Tobacco [...] 10/04/2012 Don Hoang : 1945 Provider: Rigoberto Garcia MD PROBLEM: annual melanoma skin cancer screening [...] to physician for review and changes: Rigoberto Garcia MD Section of Dermatology [facility] documented in this encounter Plan of Treatment Upcoming Encounters Date Type Specialty Care Team Description 03/26/2022 Office Visit Cardiology Vitaliy Nobles MD [facility] [address] TADEO [place], [place] [address] (Wo rk) 05/28/2022 Appointment Cardiology Zulma Dolan MD [facility] [place], [place] [address] (Wo rk) 05/28/2022 Laboratory Appointment Lab 05/28/2022 Office Visit Cardiology Zulma Dolan MD [facility] [place] [address] Liz Poole PA [facility] [place] [address] 06/10/2022 Office Visit Dermatology Laura Scherer MD [facility] DR TEJA GR-DERMAT OLOGY [place], [place] [address] (Wo rk) documented as [...] [facility] Range Method Time Signature Surgical CERNER Pathology ? [facility] Report ? Provider: ?? DEION III, RIGOBERTO Pt. Name: ?? DON HOANG ?A ? Acc #: ?[id number] ? Pt. ? Col Date: ?? 3 [...] Volume Laterality 10/04/2012 12:43 PM EDT Rigoberto Garcia III, MD PATHOLOGY/CYTOLOGY ORDERABLE S Performing Organization Address City/[facility]/ZIP Code Phon e Number [address] [facility] Specimen to Pathology (NON-OR) (10/04/2012 9:55 AM EDT) Specimen Anatomical Collection Method Collection Time Receive d Time (Source) Location / / Volume Laterality AP Specimen 10/04/2012 9:55 AM 201 3 9:56 EDT AM EDT Narrative [facility] 10/04/2012 9:56 AM E DT Specimen requisition ordered. ??Separate Pathology report to follow Rigoberto Garcia III, MD PATHOLOGY/CYTOLOGY ORDERABLE S Performing Organization Address City/[facility]/ZIP [facility] [place] [address] [facility] documented in this encounter Visit Diagnoses Diagnosis Psoriasis - Primary Other psoriasis Neoplasm of unspecified nature of bone, soft tissue, and skin Skin lesion of chest wall Unspecified disorder of skin and subcuta neous tissue Seborrheic psoriasis- scalp and ingtergl uteal area Other psoriasis documented in this encounter Care Teams Director Independent Relationship Specialty Start Date End Date Unknown PCP - General 10/04/12 01/24/13 None documented as of this encounter
--- OUTSIDE RECORDS SUMMARY | 2022-03-11 11:36 | XMS_ITS | Encounter Summary ---
:1945 Author Organization [facility] [place] [address] Care Team Providers Name Role Phone Angela Holliday APRN Primary Care Provider Encounter Details Date Type Department Care Team Description 03/28/2013 Surgery Main Operating Room Mesha Mcknight, THYROIDECTOMY, TOTAL [facility]WRV[facility] 15.04[facility] [place] [address] [place] [address] [phone] (Wo rk) Social History Tobacco Use Types [...] please call the General Surgery nurse at [phone], since this may mean that you need morecalcium. Follow-up Appointment: Will be scheduled with Dr. Mcknight in 6 weeks Date and time as well as any required labs will be mailed to you Please call [phone] to confirm date and time of your [...] by calcium supplementation. Phone number for questions: [phone] before 5 PM weekdays [phone] after 5 PM and on weekends/holidays Please [...] is a 68 y.o. male presents to [facility] today for total thyroidectomy. See [...] Willams MD - 03/28/2013 3:43 PM EDT [facility] Operative Note Patient Name: Gregory Fatima : [id number] MR#: [id number] Case Date: 03/28/2013 Surgeon: Surgeon(s) and Role: [...] patient was extubated and taken to the [facility] in stable condition. At the [...] Operative Note Patient Name: Gregory Fatima : [id number] MR#: [id number] Case Date: 03/28/2013 Surgeon: Surgeon(s) and Role: [...] Vitaliy Nobles MD [facility] DR [place]LE [place], [place] [address] (Wo rk) 05/28/2022 Appointment Cardiology Zulma Dolan MD [facility] [address] [place] [address] (Wo rk) 05/28/2022 Laboratory Appointment Lab 05/28/2022 Office Visit Cardiology Zulma Dolan [place] [facility] [place] [address] Liz Poole PA [facility] [place] [address] 06/10/2022 Office Visit Dermatology Laura Scherer MD [facility] ER DR [address]-DERMAT OLOGY [place], [place] [address] (Wo rk) documented as of [...] 332 (H) 60 - 199 CERNER mg/dL [facility] Comment: Supplemental ranges: <110 mg/dL before meals <200 mg/dL all other times of the day Specimen Anatomical Collection Method Collection Time Receive d Time (Source) Location / / Volume Laterality Blood specimen 03/29/2013 8:08 AM 013 8:08 (specimen) EDT AM EDT Mesha Mcknight MD POINT OF CARE TEST ORDERABLE S Performing Organization Address City/State/[place] [address] CERNER MILLENNIUM (ABNORMAL) POCT Glucose (03/29/2013 4:04 AM EDT) athologist Signature POC Glucose 247 (H) 60 - 199 CERNER mg/dL [facility] Comment: Supplemental ranges: <110 mg/dL before meals <200 mg/dL all other times of the day Specimen Anatomical Collection Method Collection Time Receive d Time (Source) Location / / Volume Laterality Blood specimen 03/29/2013 4:04 AM 013 4:04 (specimen) EDT AM EDT Mesha Mcknight MD POINT OF CARE TEST ORDERABLE S Performing Organization Address City/State/ZIP Code Phon e Number [address] CERNER MILLENNIUM (ABNORMAL) POCT [...] City/[facility]/ZIP Code Phon e Number [address] CERNER MILLENNIUM (ABNORMAL) POCT [...] City/[facility]/ZIP Code Phon e Number [address] CERNER MILLENNIUM (ABNORMAL) POCT [...] Organization Address City/State/[place] [address] CERNER MILLENNIUM (ABNORMAL) POCT [...] City/[facility]/ZIP Code Phon e Number [address] CERNER MILLENNIUM (ABNORMAL) POCT [...] City/[facility]/ZIP Code Phon e Number [address] CERNER MILLENNIUM (ABNORMAL) POCT Glucose (03/28/2013 2:49 PM EDT) P athologist Signature POC Glucose 319 (H) 60 - 199 CERNER mg/dL [facility] Comment: Supplemental ranges: <110 mg/dL before meals <200 mg/dL all other times of the day Specimen Anatomical Collection Method Collection Time Receive d Time (Source) Location / / Volume Laterality Blood specimen 03/28/2013 2:49 PM 013 2:49 (specimen) EDT PM EDT Mesha Mcknight MD POINT OF CARE TEST ORDERABLE S Performing Organization Address City/[facility]/ZIP Code Phon e Number [address] [facility] Specimen to Pathology (surgical or derm) (03/28/2013 12:14 PM EDT) Specimen Anatomical Collection Method Collection Time Receive d Time (Source) Location / / Volume Laterality AP Specimen 03/28/2013 12:14 03/28/2013 PM EDT 12:14 PM EDT Narrative [facility] 03/28/2013 12:14 PM EDT Specimen requisition ordered. ??Separate Pathology report to follow Mesha Mcknight MD PATHOLOGY/CYTOLOGY ORDERABLE S Performing Organization Address City/[facility]/ZIP Code Phon e Number [address] [facility] Pathology Addendum Report (03/28/2013 12:03 PM EDT) Component Value Ref Test Analysis Performed At Patholo gist Range Method Time Signature Addendum CERNER Report ? [facility] ? Provider: ?? MESHA MCKNIGHT Pt. Name: ?? GREGORY FATIMA ? Acc #: ?[id number] ?Pt. MRN: ?[id number] ? Col Date: ?? 03/28/2013 ?/Sex: ?1945,(68 [...] Organization Address City/State/[place] [address] [facility] Surgical Pathology Report (03/28/2013 12:03 PM EDT) Component Value Ref Test Analysis Performed At [facility] Range Method Time Signature Surgical [facility] Pathology ? [facility] Report ? Provider: ?? MESHA MCKNIGHT Pt. Name: ?? GREGORY FATIMA ? Acc #: ?[id number] ?Pt. MRN: ?[id number] ? Col Date: ?? 03/28/2013 ?/Sex: ?1945,(68 [...] areas of hemorrhage and ? calcifications. ? [facility] ? Provider: ?? MESHA MCKNIGHT Pt. Name: ?? GREGORY FATIMA ? Acc #: ?[id number] ?Pt. MRN: ?[id number] ? Col Date: ?? 03/28/2013 ?/Sex: ?1945,(68 years),Male ? Rec Date: ?? 03/28/2013 ?LOC: ?[facility] ? SURGICAL PATHOLOGY ? SECTIONS/PROCESSING: Slot Floorperson sections are subm itted. (R6) ? B [...] Organization Address City/State/[place] [address] CERNER MILLENNIUM Frozen Section Report (03/28/2013 12:03 PM EDT) Component Value Ref Test Analysis Performed At [facility] Range Method Time Signature Frozen CERNER Section ? [facility] Report ? Provider: ?? MESHA MCKNIGHT Pt. Name: ?? GREGORY FATIMA ? Acc #: ?[id number] ?Pt. MRN: ?[id number] ? Col Date: ?? 03/28/2013 ?/Sex: ?1945,(68 [...] MD PATHOLOGY/CYTOLOGY ORDERABLE S Performing Organization Address [facility] [place] [address] CERNER MILLENNIUM POCT Glucose [...] TEST ORDERABLE S Performing Organization Address [facility]/ZIP [facility] [place] [address] CERNER MILLENNIUM Specimen to [...] MD PATHOLOGY/CYTOLOGY ORDERABLE S Performing Organization Address [facility]/State/ZIP Code Phon e Number [address] [facility] MILLENNIUM Antibody screen (03/28/2013 9:37 AM EDT) [...] City/[facility]/ZIP Code Phon e Number [address] [facility] ABO/Rh Typing (03/28/2013 9:37 AM EDT) P athologist Signature ABORh Type O Pos [facility] Specimen Anatomical Collection Method Collection Time Receive d Time (Source) Location / / Volume Laterality Blood specimen 03/28/2013 9:37 AM 013 9:37 (specimen) EDT AM EDT Resulting Agency Comment Spec In Lab Mesha Mcknight MD BLOOD BANK ORDERABLES Performing Organization Address City/[facility]/ZIP Code Phon e Number [address] [facility] Differential, Automated (03/28/2013 9:34 AM EDT) [...] Organization Address City/State/[place] [address] CERNER MILLENNIUM (ABNORMAL) Basic [...] intervals supplied above were not validated at [facility]. Results from pediatri c [...] City/State/ZIP Code Phon e Number [place] [id number]OSPITAL [address] CERNER MILLENNIUM (ABNORMAL) CBC [...] MCHC 33.7 32.0 - CERNER 36.5 gm/dL [facility] Platelets 161 145 - 370 CERNER x10(3)/mcL MILLENNIUM RDWSD 43.7 35.0 - CERNER 46.0 fL ENNIUM RDWCV 14.2 10.9 - CERNER 14.4 % [facility] MPV 9.3 9.0 - 12.0 [facility]ERNER fL [facility] Specimen Anatomical Collection Method Collection Time Receive d Time (Source) Location / / Volume Laterality Blood specimen 03/28/2013 9:34 AM 013 9:38 (specimen) EDT AM EDT Resulting Agency Comment Spec In Lab Mesha Mcknight MD HEMATOLOGY ORDERABLES Performing Organization Address City/State/ZIP Code Phon e Number [address] [facility] POCT Glucose (03/28/2013 9:17 AM EDT) athologist Signature POC Glucose 108 60 - 199 CERNER mg/dL [facility] Comment: Supplemental ranges: <110 mg/dL before meals <200 mg/dL all other times of the day Specimen Anatomical Collection Method Collection Time Receive d Time (Source) Location / / Volume Laterality Blood specimen 03/28/2013 9:17 AM 013 9:17 (specimen) EDT AM EDT Mesha Mcknight MD POINT OF CARE TEST ORDERABLE S Performing Organization Address City/[facility]/ZIP Code Phon e Number [address] [facility] Specimen to Pathology (surgical or derm) (03/28/2013 8:55 AM EDT) Specimen Anatomical Collection Method Collection Time Receive d Time (Source) Location / / Volume Laterality AP Specimen 03/28/2013 8:55 AM 3 8:54 EDT AM EDT Narrative [facility] - 03/28/2013 8:55 AM E DT Specimen requisition ordered. ??Separate Pathology report to follow Mesha Mcknight MD PATHOLOGY/CYTOLOGY ORDERABLE S Performing Organization Address City/[facility]/[place] [address] [facility] GRISELDAENNIUM documented in this encounter Visit Diagnoses [...] RN) 0900 (Given - Provider: Radha Yao [facility], RN) 2.5 mg, Oral, DAILY, First dose on Wed03/28/13 at 1530, Until Dis continued ceFAZolin (ANCEF) 2g in dextrose 5% 50 mL (CANCELED) 0900 (Not Given - Provider: Cami Baxter RN - Reason: See comment - Comment: scheduled for 18:00)1027 (Given - Provider: eTssa Rice)1200 (Not Given - Provider: Cami Baxter [...] RN) 0900 (Given - Provider: Radha Yao VAMSI oseguera) 25 mg, Oral, 2 TIMES DAILY, First dose o n Wed03/28/13 at 1545, Until Discontinued, Routine insulin aspart (NOVOLOG) PEN injection 1-4 Units (CANCELED) 1630 (Given - Provider: Cami Baxter RN - Comment: waiting for order)1827 (Given - Provider: Kesha Gracia RN)2100 (Given - Provider: Kesha Gracia RN)2322 (Given - Provider: Wlado Castaneda RN) 0730 (Given - Provider: Radha [...] 0900 (Given - Provider: Radha christine, VAMSI) 5 mL, Intravenous, EVERY 12 HOURS, First dose on Wed03/28/13 at 0900, Until Discontinued, Routine Continuous Medication Order 03/27/2013 03/28/2013 03/29/2013 lactated ringers infusion 1,000 mL (CANCELED) 0920 (New Bag - Provider: Elizabeth Ferrer, VAMSI)1003 (New Bag - Provider: Tessa Rice)1120 (Anesthesia [...] Cami Baxter, VAMSI)1341 (Given - Provider: Angela Breaux, RN)1420 (Given - Provider: Cami Baxter RN) [...] override documented in this encounter Care Teams Blast Furnace Operator Relationship Specialty Start Date End Date Angela Holliday APRN PCP - General 01/25/13 04/15/[address] [place] [address] documented as of this encounter
--- OUTSIDE RECORDS SUMMARY | 2022-03-11 11:36 | XMS_ITS | Encounter Summary ---
:1945 Author Organization [facility] [place] [address] Care Team Providers Name Role Phone Angela Holliday APRN Primary Care Provider Encounter Details Date Type Department Care Team Description 03/15/2013 Telephone General Surgery at [facility] Maddison Key, [place] [address] Social History Tobacco Use Types Packs/Day [...] [facility] DR TADEO [place], [place] [address] (Wo rk) 05/28/2022 Appointment Cardiology Zulma Dolan MD [facility] [address] [place], [place] [address] (Wo rk) 05/28/2022 Laboratory Appointment Lab 05/28/2022 Office Visit Cardiology Zulma Dolan MD [facility] [place] [address] Liz Poole PA [facility] [place] [address] 06/10/2022 Office Visit Dermatology Laura Scherer MD [facility] DR TEJA GR-DERMAT [place], [place] [address] (Wo rk) documented as of this encounter Visit Diagnoses Not on filedocumented in this encounter Care Teams Cartoon Animator Relationship Specialty Start Date End Date Angela Holliday APRN PCP - General 01/25/13 04/15/[address] [place] [address] documented as of this encounter
--- OUTSIDE RECORDS SUMMARY | 2022-03-11 11:36 | XMS_ITS | Encounter Summary ---
:1945 [place] [address] Care Team Providers Name Role Phone MiyaLokeshAngela STACIE Primary Care Provider Encounter Details Date Type Department Care Team Description 03/28/2013 Anesthesia Event Main Operating Room Meredith Calvert MD [facility] [place] [address] [facility] Nolvia Riojas PA [facility] [place] [address] [place] [address] Anesthesia Record Procedure Summary Procedure Name [...] MD [facility] [address] TADE[address] [place], [place] [address] (Wo rk) 05/28/2022 Appointment Cardiology Zulma Dolan MD [facility] [place], [place] [address] (Wo rk) 05/28/2022 Laboratory Appointment Lab 05/28/2022 Office Visit Cardiology Zulma Dolan MD [facility] [place] [address] Liz Poole PA [facility] [place] [address] 06/10/2022 Office Visit Dermatology Laura Scherer MD [facility] DR TEJA GR-DERMAT [place], [place] [address] (Wo rk) documented as of [...] documented in this encounter Care Teams Director Corporate Sales Relationship Specialty Start Date End Date Angela Holliday APRN PCP - General 01/25/13 04/15/[address] [place] [address] documented as of this encounter
--- OUTSIDE RECORDS SUMMARY | 2022-03-11 11:36 | XMS_ITS | Encounter Summary ---
:1945 Author Organization [facility] [place] [address] Care Team Providers Name Role Phone Adi Costello MD Primary Care Provider Reason for Visit Reason Comments Annual Exam ckeck his groin and melanoma follow-up Encounter Details Date Type Department Care Team Description 11/21/2010 Follow-Up Dermatology Arik Tipton Melanoma (Primary Dx) [facility] MD [place] [id number] DERMATOLOGY DEPT . [place] [id number] (Wo rk) Social History Tobacco Use Types [...] state [employer]. His only complaints are leg cramps, skin [...] Nobles MD [facility] [address] TADEO [place], [place] [address] (Wo rk) 05/28/2022 Appointment Cardiology Zulma Dolan MD [facility] [place], [place] [address] (Wo rk) 05/28/2022 Laboratory Appointment Lab 05/28/2022 Office Visit Cardiology Zulma Dolan MD [facility] [place] [address] Liz Poole PA [facility] [place] [address] 06/10/2022 Office Visit Dermatology Laura Scherer MD [facility] DR TEJA GR-DERMAT OLOGY [place], [place] [address] (Wo rk) documented as of this encounter Visit Diagnoses Diagnosis Melanoma - Primary Melanoma of skin, site unspecified documented in this encounter Care Teams Seed Cone Picker Relationship Specialty Start Date End Date Adi Costello MD PCP - General 06/17/10 09/21/11 [address] [place] [address] documented as of this encounter
--- OUTSIDE RECORDS SUMMARY | 2022-03-11 11:37 | XMS_ITS | Encounter Summary ---
:1945 Author Organization [facility] Address [address] [place] [address] Care Team Providers Name Role Phone Unknown, Provider Primary Care Provider Encounter Details Date Type Department Care Team Description 07/11/2014 Results Only [facility] Shruthi Horowitz MD Laboratory Services - [address] [place] [address] [place] [address] 0 [facility] [place] [address] [phone] Social History Tobacco Use Types Packs/Day Years Used Date Never Assessed Sex Assigned at Date Recorded Not on file documented as of this encounter Plan of Treatment Not on filedocumented as of this encounter Procedures Procedure Name Priority Date/Time Associated Diagnosis Comme [facility] SURGICAL PATHOLOGY Routine 07/11/2014 8:55 EST Re sults for this procedure are i n the results section. documented in this encounter Results SURGICAL PATHOLOGY (07/11/2014 8:55 EST) Pathology Report: SURGICAL PATHOLOGY REPORT [facility] Reports generated via electronic interface contain sorin ginal data; LABORATORY however they are lacking the format of the original re port. SERVICES Caution should be taken when reading/interpreting unfo rmatted reports. Name: ? DON HOANG ? Accession #: ? [id number] ? : ? 1945 (Age: 69) ??M [...] 6.5 x 3.0 cm in aggreg ate). Career Information Specialist sections are submitted in 1- 10 (approximately 40% of the specimen is submitted). Viry Nunez 07/12/2014 11:21 AM End of Report Specimen Performing Organization Address City/State/ZIP Code Phon e Number [facility] LABORATORY [address] [place] [address] SERVICES documented in this encounter Visit Diagnoses Not on filedocumented in this encounter Care Teams Book Publisher Relationship Specialty Start Date End Date Unknown, Provider, PCP - General 03/07/14 07/12/14 documented as of this encounter
--- OUTSIDE RECORDS SUMMARY | 2022-03-11 11:37 | XMS_ITS | Encounter Summary ---
:1945 Author Organization [facility] Address [address] [place] [address] Care Team Providers Name Role Phone Lovely Vicente MD Primary Care Provider Encounter Details Date Type Department Care Team Description 08/11/2019 Lab Requisition [facility] Unknown, Provider, Pathology & Laboratory [facility] [address] [place] [place] [address] Social History Tobacco Use Types Packs/Day Years [...] (08/11/2019 14:35 EST) Giardia and Cryptosporidium Cryptosporidium [facility] Cryptosporidium Antigen Neg and Antigen Neg [facility] CENTER Giardia Antigen Neg Giardia Antigen Neg LABORATORY SERVICES Specimen Feces - Specimen from rectum (specimen) Performing Organization Address City/State/ZIP Code Phon e Number [facility] LABORATORY [address] [place] [address] SERVICES documented in this encounter Visit Diagnoses Not on filedocumented in this encounter Care Teams Wares Sorter Relationship Specialty Start Date End Date Lovely Vicente MD PCP - General 07/13/14 documented as of this encounter
--- OUTSIDE RECORDS SUMMARY | 2022-03-11 11:37 | XMS_ITS | Encounter Summary ---
:1945 Author Organization [facility] Address [address] [place] [address] Care Team Providers Name Role Phone Lovely Vicente MD Primary Care Provider Encounter Details Date Type Department Care Team Description 01/28/2022 Lab Requisition [facility] Outr Resulting Lab, Pathology & Laboratory Provider [facility] [address] [place] [address] Social History Tobacco Use Types Packs/Day Years Used Date Never Assessed Sex Assigned at Date Recorded Not on file documented as of this encounter Plan of Treatment Not on filedocumented as of this encounter Procedures Procedure Name Priority Date/Time Associated Diagnosis Comme nts COVID-19 TEST [facility] Today 01/27/2022 14:30 LAB PCR EDT COVID-19 TESTING Routine 01/27/2022 14:30 Results for this EDT procedure are i n the results section. documented in this encounter Results COVID-19 TEST [facility] LAB PCR (01/27/2022 14:30 EDT) Specimen Swab Performing Organization Address City/State/ZIP Code Phon e Number [facility] [address] [place] [address] SERVICES COVID-19 TESTING (01/27/2022 14:30 EDT) COVID-19 rt-PCR Negative Negative [facility] Result Comment: CENTER LABORATORY This test [...] was performed using the meliton SARS-CoV-2 assay ([employer] on the Meliton 6800 System Performing Lab Meliton 6800 [facility] Lab [facility] SERVICES Specimen Swab Performing Organization Address City/State/ZIP Code Phon e Number [facility] [address] [place] [address] SERVICES documented in this encounter Visit Diagnoses Not on filedocumented in this encounter Care Teams Senior Android Software Engineer Relationship Specialty Start Date End Date Lovely Vicente MD PCP - General 07/13/14 documented as of this encounter
--- OUTSIDE RECORDS SUMMARY | 2022-03-11 11:37 | XMS_ITS | Clinical Summary ---
:1945 Author Organization [facility] Address [address] [place] [address] Care Team Providers Name Role Phone Lovely [...] i n the results section. COVID-19 TEST [facility] Today 01/27/2022 14:30 LAB PCR EDT COVID-19 TESTING Routine 01/27/2022 14:30 Results for this EDT procedure are i n the results section. from Last 3 Months Results PSA TOTAL, DIAGNOSTIC (02/20/2022 9:04 EDT) Pathologist Sig nature PSA 2.7 <=6.5 ng/mL [facility] Specimen Blood - Venous blood (substance) Narrative [facility] - 02/20/2022 18:17 EDT NOTE: Serum PSA concentration should not be in terpreted as absolute evidence for the presence or absence of malignant disease. Assayed on Siemens ADVIA Centaur XPT usi ng chemiluminescent technology.??Values obtained by using different assay methods cannot be used interchangeably. Performing Organization Address City/State/ZIP Code Phon e Number [facility] [address] [place] [address] SERVICES COVID-19 TEST [facility] LAB PCR (01/27/2022 14:30 EDT) Specimen Swab Performing Organization Address City/[facility]/ZIP Code Phon e Number [facility] [address] [place] [address] SERVICES COVID-19 TESTING (01/27/2022 14:30 EDT) COVID-19 rt-PCR Negative Negative [facility] Result Comment: CENTER LABORATORY This [...] performed using the meliton SARS-CoV-2 assay ([employer] on the Meliton 6800 System Performing Lab Meliton 6800 [facility] Lab [facility] SERVICES Specimen Swab Performing Organization Address City/[facility]/ZIP Code Phon e Number [facility] [address] [place] [address] SERVICES from Last 3 Months Care Teams Linoleum Mechanic Relationship Specialty Start Date End Date Lovely Vicente MD PCP - General 07/13/14
--- OUTSIDE RECORDS SUMMARY | 2022-03-11 11:37 | XMS_ITS | Encounter Summary ---
:1945 Author Organization [facility] Address [address] [place] [address] Care Team Providers Name Role Phone Unavailable Primary Care Provider Unavailable Encounter Details Date Type Department Care Team Description 03/05/2014 Hospital Encounter [facility] Heather Unknown, Provider, [facility] 0 [facility] [phone] [place] [address] (Work) [phone] Social History Tobacco Use Types Packs/Day Years [...]
--- OUTSIDE RECORDS SUMMARY | 2022-03-11 11:37 | XMS_ITS | Encounter Summary ---
:1945 Author Organization [facility] Address [address] [place] [address] Care Team Providers Name Role Phone Lovely Vicente MD Primary Care Provider Encounter Details Date Type Department Care Team Description 04/04/2021 Lab Requisition [facility] Outr Resulting Lab, Pathology & Laboratory Provider [facility] [address] [place] [address] Social History Tobacco Use Types Packs/Day Years [...] Pathologist Sig nature Salmonella PCR Negative Negative [facility] Shigella/Enteroinvasive Negative Negative [facility] HN LAB CAMPYLOBACTER PCR Negative Negative [facility] Shiga Toxin PCR Negative Negative [facility] Specimen Feces - Specimen from rectum (specimen) Performing Organization Address City/State/ZIP Code Phon e Number [facility] [address] [place] [address] SERVICES documented in this encounter Visit Diagnoses Not on filedocumented in this encounter Care Teams Radiographer Relationship Specialty Start Date End Date Lovely Vicente MD PCP - General 07/13/14 documented as of this encounter
--- OUTSIDE RECORDS SUMMARY | 2022-03-11 11:37 | XMS_ITS | Encounter Summary ---
:1945 Author Organization [facility] Address [address] [place] [address] Care Team Providers Name Role Phone Unknown, Provider Primary Care Provider Encounter Details Date Type Department Care Team Description 03/05/2014 Results Only [facility] Eris Taylor MD Laboratory Services - [address] [place] [address] [place] [address] [phone] Social History Tobacco Use Types Packs/Day Years [...] ? DON HOANG ? Accession #: ? [id number] ? : ? 1945 (Age: 68) ??M [...] Phon e Number [facility] [address] [place] [address] SERVICES [facility] [address] [place] [address] documented in this encounter Visit Diagnoses Not on filedocumented in this encounter Care Teams Ui Ux Developer Relationship Specialty Start Date End Date Unknown, Provider, PCP - General 03/07/14 07/12/14 documented as of this encounter
--- OUTSIDE RECORDS SUMMARY | 2022-03-11 11:37 | XMS_ITS | Encounter Summary ---
:1945 Author Organization [facility] Address [address] [place] [address] Care Team Providers Name Role Phone Lovely Vicente MD Primary Care Provider Encounter Details Date Type Department Care Team Description 02/20/2022 Lab Requisition [facility] Outr Resulting Lab, Pathology & Laboratory Provider [facility] [address] [place] [address] Social History Tobacco Use Types Packs/Day Years [...] Pathologist Sig nature PSA 2.7 <=6.5 ng/mL [facility] Specimen Blood - Venous blood (substance) Narrative [facility] - 02/20/2022 18:17 EDT NOTE: Serum PSA concentration should not be in terpreted as absolute evidence for the presence or absence of malignant disease. Assayed on Siemens [employer] Centaur XPT usi ng chemiluminescent technology.??Values obtained by using different assay methods cannot be used interchangeably. Performing Organization Address City/State/ZIP Code Phon e Number [facility] [address] [place] [address] SERVICES documented in this encounter Visit Diagnoses Not on filedocumented in this encounter Care Teams Animal Care Provider Relationship Specialty Start Date End Date Lovely Vicente MD PCP - General 07/13/14 documented as of this encounter
--- OUTSIDE RECORDS SUMMARY | 2022-03-11 11:37 | XMS_ITS | Encounter Summary ---
:[address] [facility] Address [address] [place] [address] Care Team Providers Name Role Phone Lovely Vicente MD Primary Care Provider Encounter Details Date Type Department Care Team Description 04/04/2021 Lab Requisition [facility] Outr Resulting Lab, Pathology & Laboratory Provider [facility] [address] [place] [address] Social History Tobacco Use Types Packs/Day Years [...] (04/03/2021 12:15 EDT) Giardia and Cryptosporidium Cryptosporidium [facility] Cryptosporidium Antigen Neg and Antigen Neg and CENTER Giardia Antigen Neg Giardia Antigen Neg LABORATORY SERVICES Specimen Feces - Specimen from rectum (specimen) Performing Organization Address City/State/ZIP Code Phon e Number [facility] [address] [place] [address] SERVICES documented in this encounter Visit Diagnoses Not on filedocumented in this encounter Care Teams Supervisor Cold Rolling Relationship Specialty Start Date End Date Lovely Vicente MD PCP - General 07/13/14 documented as of this encounter
--- OUTSIDE RECORDS SUMMARY | 2022-03-11 11:37 | XMS_ITS | Encounter Summary ---
:[address] [facility] Address [address] [place] [address] Care Team Providers Name Role Phone Lovely Vicente MD Primary Care Provider Encounter Details Date Type Department Care Team Description 01/01/2020 Lab Requisition [facility] Outr Resulting Lab, Pathology & Laboratory Provider [facility] [address] [place] [address] Social History Tobacco Use Types Packs/Day Years [...] nature PSA 2.1 0.0 - 6.5 ng/mL [facility] Specimen Blood - Venous blood (substance) Narrative [facility] - 01/02/2020 10:40 EDT NOTE: Serum PSA concentration should not be in terpreted as absolute evidence for the presence or absence of malignant disease. Assayed on Siemens ADV[employer] Centaur XPT usi ng chemiluminescent technology.??Values obtained by using different assay methods cannot be used interchangeably. Performing Organization Address City/State/ZIP Code Phon e Number [facility] [address] [place] [address] SERVICES documented in this encounter Visit Diagnoses Not on filedocumented in this encounter Care Teams Sewage Reticulation Drafting Officer Relationship Specialty Start Date End Date Lovely Vicente MD PCP - General 07/13/14 documented as of this encounter
--- OUTSIDE RECORDS SUMMARY | 2022-03-11 11:37 | XMS_ITS | Encounter Summary ---
:1945 Author Organization [facility] Address [address] [place] [address] Care Team Providers Name Role Phone Unknown, Provider Primary Care Provider Encounter Details Date Type Department Care Team Description 07/11/2014 Hospital Encounter [facility]- Heather Unknown, Provider, [facility] [address] [place] [address] [place] [address] (Work) [phone] Social History Tobacco Use Types Packs/Day Years Used Date Never Assessed Sex Assigned at Date Recorded Not on file documented as of this encounter Discharge Disposition Disposition Code Departure Means Destination Home or Self Prison documented in this encounter Plan of Treatment Not on filedocumented as of this encounter Visit Diagnoses Not on filedocumented in this encounter Care Teams Glaciologist Relationship Specialty Start Date End Date Unknown, Provider, PCP - General 03/07/14 07/12/14 documented as of this encounter
--- OUTSIDE RECORDS SUMMARY | 2022-03-13 10:52 | XMS_ITS | Encounter Summary ---
:1945 Author Organization [facility] [place] [address] Care Team Providers Name Role Phone Lovely Vicente MD Primary Care Provider Reason for Visit Auth/Cert Specialty Diagnoses / Procedures Referred By Contact Refer red To Contact Diagnoses ASCVD (arteriosclerotic cardiovascular disease) [I25.10] Vitaliy Nobles MD [facility] Procedures PRO PERC TRLUML CORONARY STENT W/ANGIO ONE ART/BRANCH CARDIAC CATHETERIZATION STENT PLACEMENT-SINGLE MAJOR CORONARY ARTERY OR BRANCH [facility] [place] [address] Referral ID Status Reason Start Date Expiration Date Visits Requ ested Visits Authorized [id number] 1 1 Encounter Details Date Type Department Care Team Description 01/30/2022 Laboratory Lab 3L Katalina ASCVD (arterios clerotic Appointment [facility] cardiovas cular disease) [place] [address] Social History Tobacco Use Types Packs/Day Years [...] Nobles MD [facility] CARDIOLOGY [place], [place] [address] (Wo rk) 05/28/2022 Appointment Cardiology Zulma Dolan MD [facility] [place], [place] [address] (Wo rk) 05/28/2022 Laboratory Appointment Lab 05/28/2022 Office Visit Cardiology Zulma Dolan MD [facility] [place] [address] Liz Poole PA [facility] [place] [address] 06/10/2022 Office Visit Dermatology Laura Scherer MD [facility] [address]DERMAT OLOGY [place], [place] [address] (Wo rk) documented as [...] (ABNORMAL) Differential, Automated (01/30/2022 7:19 AM EDT) [facility] Method Time Signature Neutrophils % 77.9 % [facility] Neutr Abs (ANC) 5.31 1.70 - [facility] 6.10 [facility] x10(3)/[facility] LABORATORY Lymphocytes % 12.0 % [facility] Lymphocytes Abs 0.8 (L) 0.9 - 3.2 [facility] x10(3)/[facility] LABORATORY Monocytes % 8.1 % [facility] Monocyte Abs 0.6 0.3 - 0.9 [facility] x10(3)/[facility] LABORATORY Eosinophils % 0.4 % [facility] Eosinophils Abs 0.0 0.0 - 0.4 [facility] x10(3)/[facility] LABORATORY Basophils % 0.6 % [facility] Basophils Abs 0.0 0.0 - 0.1 [facility] x10(3)/[facility] LABORATORY Immature Gran % 1.00 % [facility] [...] Gran Abs 0.07 (H) 0.00 - 0.04 x10(3)/[facility] LABORATORY Specimen Anatomical Collection Method Collection Time Receive d Time (Source) Location / / Volume Laterality Blood 01/30/2022 7:19 AM 7:21 EDT AM EDT Resulting Agency Comment Spec In Lab Zulma BROWN HEMATOLOGY ORDERABLES Performing Organization Address City/State/[place] [address] (ABNORMAL) Hemogram (01/30/2022 7:19 AM EDT) Analysis Performed At Patho logist Time Signature WBC 6.8 4.0 - 9.5 [facility] x10(3)/[facility] LABORATORY RBC 4.32 (L) 4.58 - [facility] 5.54 [facility] x10(6)/[facility] LABORATORY Hemoglobin 13.0 (L) 13.7 - [facility] 16.5 g/dL [facility] Hematocrit 39.8 (L) 40.5 - [place] 48.5 % [facility] MCV 92.1 82.9 - [facility]1 [facility] LABORATORY MCH 30.1 27.5 - [place] 32.1 pg [facility] MCHC 32.7 32.0 - [place] [facility] 35.7 g/dL [facility] Platelets 172 145 - 357 [facility] x10(3)/[facility] LABORATORY RDWSD 54.5 (H) 36.0 - [place] ZHAORYAN 45.0 [facility] LABORATORY RDWCV 16.2 (H) 11.4 - [place] RY[place] 13.8 % [facility] MPV 9.0 7.6 - 12.9 [facility] LABORATORY nRBC % Auto 0.0 % [facility] nRBC Abs Auto 0.000 0.000 - [facility] 0.000 [facility] x10(3)/[facility] LABORATORY Specimen Anatomical Collection Method Collection Time Receive d Time (Source) Location / / Volume Laterality Blood 01/30/2022 7:19 AM 7:21 EDT AM EDT Resulting Agency Comment Spec In Lab Zulma BROWN HEMATOLOGY ORDERABLES Performing Organization Address City/State/ZIP Code Phon e Number [place] [phone] LAB[address]ORY [address] (ABNORMAL) Basic Metabolic Panel (non-fasting) (01/30/2022 7:19 AM EDT) P athologist Signature Glucose Lvl 237 (H) 65 - 199 [facility] mg/dL [facility] Comment: [...] - 107 mmol/L [facility] CO2 30 22 - 31 mmol/L [facility] Anion Gap 11 5 - 15 mmol/L [facility] Calcium 9.5 8.5 - 10.5 mg/dL [facility] Estimated GFR 50 (L) >=60 mL/min/1.73 m?? [facility] [...] EDT Resulting Agency Comment Spec In Lab Vtialiy Nobles MD CHEMISTRY ORDERABLES Performing Organization Address City/State/[place] [address] documented in this encounter Visit Diagnoses Diagnosis ASCVD (arteriosclerotic cardiovascular d isease) Unspecified cardiovascular disease documented in this encounter Care Teams Public Address Systems Mechanic Relationship Specialty Start Date End Date Lovely Vicente MD PCP - General 04/16/[address] [place] [address] documented as of this encounter
--- OUTSIDE RECORDS SUMMARY | 2022-03-13 10:52 | XMS_ITS | Encounter Summary ---
:1945 [place] [address] Care Team Providers Name Role Phone Lovely Vicente MD Primary Care Provider Reason for Visit Reason Onset Date Comments Follow-up 03/06/2022 Dave Bueno Encounter Details Date Type Department Care Team Description 03/06/2022 Telephone Cardiology at [facility] Martha Comer, Follow-up ([facility] Start) [place] [phone] Social History Tobacco Use Types Packs/Day [...] pt had gotten his labs done at [facility] yesterday. Results received, scanned and [...] MD [facility] [address] [place], [place] [address] (Wo rk) 05/28/2022 Appointment Cardiology Zulma Dolan MD [facility] [place], [place] [address] (Wo rk) 05/28/2022 Laboratory Appointment Lab 05/28/2022 Office Visit Cardiology Zulma Dolan MD [facility] [place] [address] Liz Poole PA [facility] [place] [address] 06/10/2022 Office Visit Dermatology Laura Scherer MD [facility] DR [address]DERMAT [place], [place] [address] (Wo rk) documented as of [...] on filedocumented in this encounter Care Teams Label Cutter Relationship Specialty Start Date End Date Lovely Vicente MD PCP - General 04/16/[address] [place] [address] documented as of this encounter
--- OUTSIDE RECORDS SUMMARY | 2022-03-13 10:52 | XMS_ITS | Encounter Summary ---
:1945 [place] [address] Care Team Providers Name Role Phone Lovely Vicente MD Primary Care Provider Reason for Visit Reason Onset Date Comments Follow-up 02/26/2022 Entresto start Encounter Details Date Type Department Care Team Description 02/26/2022 Telephone Cardiology at [facility] Martha Comer, Follow-up ([facility] RN start) [place] [phone] Social History Tobacco Use Types Packs/Day [...] on 03/05/22 Getting labs done at : [facility] Order e-faxed by STEPHANIE Poole on 02/24/22. /pt to call on 03/05/22 letting us know to get the BMP results from [facility]. Nursing to get results and contact pt to see how he is tolerating the Entresto. They are to call sooner with any questions/concerns. documented in this encounter Plan of Treatment Upcoming Encounters Date Type Specialty Care Team Description 03/26/2022 Office Visit Cardiology Vitaliy Nobles MD [facility] [address] [place], [place] [address] (Wo rk) 05/28/2022 Appointment Cardiology Zulma Dolan MD [facility] [place], [place] [address] (Wo rk) 05/28/2022 Laboratory Appointment Lab 05/28/2022 Office Visit Cardiology Zulma Dolan MD [facility] [place] [address] Liz Poole PA [facility] [place] [address] 06/10/2022 Office Visit Dermatology Laura Scherer MD [facility] [address] [place]LOG[place], [place] [address] (Wo rk) documented as of this encounter Visit Diagnoses Not on filedocumented in this encounter Care Teams Aerial Installer Relationship Specialty Start Date End Date Lovely Vicente MD PCP - General 04/16/[address] [place] [address] documented as of this encounter
--- OUTSIDE RECORDS SUMMARY | 2022-03-13 10:52 | XMS_ITS | Encounter Summary ---
:1945 Author Organization [facility] [place] [address] Care Team Providers Name Role Phone Lovely Vicente MD Primary Care Provider Reason for Visit Reason Onset Date Comments Follow-up 02/23/2022 Medication adjustmen t and new med Encounter Details Date Type Department Care Team Description 02/23/2022 Telephone Cardiology [place] [facility] Martha Comer, [facility] adjust[facility]andon t and new [place]) [place] [address] Social History Tobacco Use Types Packs/Day [...] the order for BMP and sent to [facility]. will call [facility] to make an appointment for next Wednesday03/04/22. [...] tablet) daily. She will correct his pill technical planner to the new dose. Will need to check with STEPHANIE Poole about repeat BMP to recheck K+ level. If yes he will get the test done at [facility]. They are aware that he will need to make an appt at [facility] to get the test done. Entresto: states [...] if he qualifies for assistance from the [employer]. She is thankful for the assistance, as he is taking insulin that is very expensive too. Instructed to call this gag writer, if he does qualify for assistance from [employer] and that he has gotten the medication [...] Nobles MD [facility] [address] [place], [place] [address] (Wo rk) 05/28/2022 Appointment Cardiology Zulma Dolan MD [facility] [place], [place] [address] (Wo rk) 05/28/2022 Laboratory Appointment Lab 05/28/2022 Office Visit Cardiology Zulma Dolan MD [facility] [place] [address] Liz Poole PA [facility] [place] [address] 06/10/2022 Office Visit Dermatology Laura Scherer MD [facility] DR [address]DER[address] [place], [place] [address] (Wo rk) documented as of this encounter Visit Diagnoses Not on filedocumented in this encounter Care Teams Ballistician Relationship Specialty Start Date End Date Lovely Vicente MD PCP - General 04/16/[address] [place] [address] documented as of this encounter
--- OUTSIDE RECORDS SUMMARY | 2022-03-13 10:52 | XMS_ITS | Encounter Summary ---
:1945 Author Organization [place] [address] Care Team Providers Name Role Phone Lovely Vicente MD Primary Care Provider Reason for Visit Reason Onset Date Comments Medication Refill 03/11/2022 Encounter Details Date Type Department Care Team Description 03/06/2022 Refill Cardiology at [facility] Liz Poole PA Medication Refill [facility] naima [facility] [place] [address] Cardiology Dept [phone] [place], [place] 0[address] (Wo rk) Social History Tobacco [...] Nobles MD [facility] [address] CARLYLE [place] [address] (Wo rk) 05/28/2022 Appointment Cardiology Zulma Dolan MD [facility] [address] [place], [place] [address] (Wo rk) 05/28/2022 Laboratory Appointment Lab 05/28/2022 Office Visit Cardiology Zulma Dolan MD [facility] [place] [address] Liz Poole PA [facility] [place] [address] 06/10/2022 Office Visit Dermatology Laura Scherer MD [facility] DR TEJA [address]DERMAT [place], [place] [address] (Wo rk) documented as of this encounter Visit Diagnoses Not on filedocumented in this encounter Care Teams Flow Coordinator Relationship Specialty Start Date End Date Lovely Vicente MD PCP - General 04/16/15 [facility] [address] [place] [address] documented as of this encounter
--- OUTSIDE RECORDS SUMMARY | 2022-03-13 10:52 | XMS_ITS | Encounter Summary ---
:1945 [place] [address] Care Team Providers Name Role Phone Lovely Vicente MD Primary Care Provider Encounter Details Date Type Department Care Team Description 01/28/2022 Orders Only Group Product Manager Zulma Finch ASCVD (art eriosclerotic [facility] cardiovascular disease) [facility] [place] [address] [place], [place] [phone] (Work) [phone] Social History Tobacco Use Types Packs/Day Years [...] MD [facility] [address] CARLYLE [place] 0[address] (Wo rk) 05/28/2022 Appointment Cardiology Zulma Dolan MD [facility] [address] [place] [address] (Wo rk) 05/28/2022 Laboratory Appointment Lab 05/28/2022 Office Visit Cardiology Zulma Dolan MD [facility] [place] [address] Liz Poole PA [facility] [place] [address] 06/10/2022 Office Visit Dermatology Laura Scherer MD [facility] ER DR [address]-DERMAT [place], [place] [address] (Wo rk) documented as of this encounter Results (ABNORMAL) Basic Metabolic Panel (non-fasting) (01/30/2022 7:19 AM EDT) P athologist Signature Glucose Lvl 237 (H) 65 - 199 [facility] mg/dL [facility] Comment: Diabetes: >=200 mg/dL plus symp toms BUN 34 (H) 10 - 20 mg/dL [facility] Creatinine 1.45 0.80 - [...] [facility] CO2 30 22 - 31 mmol/L [facility]ORY Anion Gap 11 5 - 15 mmol/L [facility] Calcium 9.5 8.5 - 10.5 mg/dL [facility] Estimated GFR 50 (L) >=60 mL/min/1.73 m?? [place] [...] Organization Address City/State/[place] [address] documented in this encounter Visit Diagnoses Diagnosis ASCVD (arteriosclerotic cardiovascular d isease) Unspecified cardiovascular disease documented in this encounter Care Teams Baggagemaster Relationship Specialty Start Date End Date Lovely Vicente MD PCP - General 04/16/[address] [place] [address] documented as of this encounter
--- OUTSIDE RECORDS SUMMARY | 2022-03-13 10:52 | XMS_ITS | Encounter Summary ---
:1945 Author Organization [facility] Address [facility] [place] [address] Care Team Providers Name Role Phone Lovely Vicente MD Primary Care Provider Reason for Visit Auth/Cert Specialty Diagnoses / Procedures Referred By Contact Refer red To Contact Diagnoses ASCVD (arteriosclerotic cardiovascular disease) [I25.10] Vitaliy Nobles MD [facility] Procedures PRO PERC TRLUML CORONARY STENT W/ANGIO ONE ART/BRANCH CARDIAC CATHETERIZATION STENT PLACEMENT-SINGLE MAJOR CORONARY ARTERY OR BRANCH [facility] [place] [address] Referral ID Status Reason Start Date Expiration Date Visits Requ ested Visits Authorized [id number] 1 1 Encounter Details Date Type Department Care Team Description 01/30/2022 Surgery Clinical Researcher Asa Coulter MD CARDIAC CATHETERIZATION [facility] [place] [address] [place] [address] [phone] (Wo rk) Social History Tobacco Use Types [...] and Clopidogrel. Please follow up with your correspondent in the next 4-6 weeks. We have [...] Tablet Sustained 50 mg Release 24 hr aspirin 81 mg Capsule 1 capsule by Per 14 capsule 0 01/31/20 22 02/13/2022 PO/OG/NG route daily for 14 days. documented as of this encounter Progress Notes Carlos Alberto Murray RN - 01/30/2022 4:54 PM EDT [facility] Short Stay Unit Discharge Note All [...] recent PCI presenting for staged PCI to [facility]. The pt states he has been [...] recent PCI presenting for staged PCI to [facility]. The indications, expected benefits, and potential [...] SSU team Don has history of prior GA and CABG. I had referred him to cardiac rehab at [facility] last month per HF team. He was waiting until this intervention before starting the program. Reviewed managing angina /use of sl nitroglycerin. Given parameters for home exercise. 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 We discussed short walks several times per day. Will send [facility] his discharge summary from this admission. The patient should be contacted by the Program within 1- 2 weeks from discharge. Brief Op Note - Vitaliy Nobles MD - 01/30/2022 10:19 AM EDT Images from the original note were not included. [facility] [place] [address] CORONARY ANGIOGRAM AND PERCUTANEOUS CORONARY INTERVENTION REPORT Patient: Don Fatima : 1945 MR number: [id number] Date of Service: 01/30/2022 Steam Turbine Assembler: Vitaliy Nobles MD Fellow: KEYON Elizabeth INDICATION: [...] a long 2.0 x 26 mm HARDEEP Glascock TUCKER stent and positioned it at the [...] using a 2.0 x 26 mm HARDEEP Glascock TUCKER stent. This completes the revascularization ofall [...] [facility] [address] CARLYLE [place] [address] (Wo rk) 05/28/2022 Appointment Cardiology Zulma Dolan MD [facility] [place] 0375 (Wo rk) 05/28/2022 Laboratory Appointment Lab 05/28/2022 Office Visit Zulma Garrison MD [facility] [place] [address] Liz Poole PA [facility] [place] [address] 06/10/2022 Office Visit Dermatology Laura Scherer MD [facility] ER DR [address]-DERMAT [facility] [place], [place] [address] (Wo rk) Scheduled Orders [...] Abs (ANC) 3.96 1.70 - [facility] 6.10 [facility] x10(3)/[facility] LABORATORY Lymphocytes % 16.3 % [facility] LABORATORY Lymphocytes Abs 0.9 0.9 - 3.2 [facility] x10(3)/[facility] LABORATORY Monocytes % 10.0 % [facility]ORY Monocyte Abs 0.6 0.3 - 0.9 [facility] x10(3)/[facility] LABORATORY Eosinophils % 0.5 % [facility]ORY Eosinophils Abs 0.0 0.0 - 0.4 [facility] x10(3)/[facility] LABORATORY Basophils % 0.5 % [facility] LABORATORY Basophils Abs 0.0 0.0 - 0.1 [place] [address](3)/[facility] LABORATORY Immature Gran % 0.90 [...] City/State/[place] [address] (ABNORMAL) Hemogram (01/30/2022 2:12 PM EDT) Analysis Performed At Patho logist Time Signature WBC 5.5 4.0 - 9.5 [facility] x10(3)/[facility] LABORATORY RBC 4.30 (L) 4.58 - [place] 5.54 [facility] x10(6)/[facility] LABORATORY Hemoglobin 12.7 (L) 13.7 - [place] 16.5 g/dL [facility] Hematocrit 39.4 (L) 40.5 - [place] 48.5 % [facility] MCV 91.6 82.9 - [facility] 93.1 [facility] LABORATORY MCH 29.5 27.5 - [place] 32.1 pg [facility] MCHC 32.2 32.0 - [place] 35.7 g/dL [facility] Platelets 172 145 - 357 [facility] x10(3)/[facility] LABORATORY RDWSD 54.5 (H) 36.0 - [facility] 45.0 [facility] LABORATORY RDWCV 16.4 (H) 11.4 - [facility] 13.8 % [facility] MPV 9.2 7.6 - 12.9 [facility] LABORATORY nRBC % Auto 0.0 % [facility] LABORATORY nRBC Abs Auto 0.000 0.000 - [facility] 0.000 [facility] x10(3)/[facility] LABORATORY Specimen Anatomical Collection Method Collection Time Receive d Time (Source) Location / / Volume Laterality Blood 01/30/2022 2:12 PM 2 2:37 EDT PM EDT Resulting Agency Comment Spec In Lab Eddi Elizabeth Jr., MD HEMATOLOGY ORDERABLES Performing Organization Address City/State/[place] [address] (ABNORMAL) Basic Metabolic Panel (non-fasting) (01/30/2022 2:12 PM EDT) P athologist Signature Glucose Lvl 163 65 - 199 [facility] mg/dL [facility] Comment: Diabetes: [...] City/State/[place] [address] POCT Glucose (01/30/2022 1:41 PM EDT) athologist Signature POC Glucose 148 65 - 199 [facility] mg/dL [facility] Comment: Supplemental ranges: <140 mg/dL before meals <180 mg/dL all other times of the day Specimen Anatomical Collection Method Collection Time Receive d Time (Source) Location / / Volume Laterality Blood 01/30/2022 1:41 PM 1:41 EDT PM EDT Vitaliy Sandra Nobles MD POINT OF CARE TEST ORDERABLE S Performing Organization Address City/State/ZIP Code Phon e Number [address] POCT Glucose (01/30/2022 10:48 AM EDT) P athologist Signature POC Glucose 193 65 - 199 [facility] mg/dL [facility] Comment: Supplemental ranges: <140 mg/dL before meals <180 mg/dL all other times of the day Specimen Anatomical Collection Method Collection Time Receive d Time (Source) Location / / Volume Laterality Blood 01/30/2022 10:48 01/30/2022 AM EDT 10:48 AM EDT Vitaliy Sandra Nobles MD POINT OF CARE TEST ORDERABLE S Performing Organization Address City/[facility]/ZIP [place] [address] EKG 12 Lead (01/30/2022 10:33 AM EDT) Component Value Ref Range Test Analysis Performed Pathologis t Method Time At Signature Ventricular rate 64 BPM MUSE SYSTEM Atrial Rate 64 BPM MUSE SYSTEM P-R Interval 162 ms MUSE SYSTEM QRS Duration 94 ms MUSE SYSTEM Q-T Interval 422 ms MUSE SYSTEM QTC Calculated 435 ms MUSE SYSTEM (Bezet) Calculated P [place] 41 degrees MUSE SYSTEM Calculated R [place] -27 degrees MUSE SYSTEM Calculated T [place] 104 degrees MUSE SYSTEM INTERPRETATION Normal sinus rhythm MUSE SYSTEM Anterolateral infarct (cited on or before 09-DEC-2021) Abnormal ECG When compared with ECG of 10-DEC-2021 11:17, No significant change was found Confirmed by Gary Perez ([id number]) on 01/30/2022 5:57:5 2 PM Specimen Anatomical Collection Method Collection Time Receive d Time (Source) Location / / Volume Laterality 01/30/2022 10:33 01/30/2022 5:57 AM EDT PM EDT Vitaliy Nobles MD ECG ORDERABLES Performing Organization Address City/[facility]/ZIP Code Phon e Number MUSE SYSTEM CARDIAC CATHETERIZATION (01/30/2022 10:16 AM EDT) Specimen (Source) Anatomical Location Collection Method / Collectio n Time Received Time / Laterality Volume Narrative CARDIOMAC SYSTEM - 01/30/2022 2:09 PM ED T ?[facility] ? Cardiac Cathete rization/Intervention Report ? Patient Name: Don Fatima. ? Procedure Date: 01/30/2022 ? A #: [id number] ? Primary Physician: Vitaliy Nobles ? Case #: [id number] ? File Name: [id number] ? Catheterization Order Number: [id number] ? [facility] ? Final Report [place], [place] ? Patient Name: ? Don E. Stewa rt ? ID#: ?[id number] ? : ?1945 ? Procedure Date: ? [...] ?designated as ASA Class III. Th e [facility] clinical frailty scale is 5: Mildly ?Frail. [...] was Urgent. The indication for ?the label printer visit is stable kn own CAD. Chest pain symptom assessment ?was: Typical Angina. ? Technique: ?A 6 SLFr sheath was inserted in the right radial artery utilizing the ?Seldinger technique. The right coronary artery was injected utilizing a ?IR 2.0 catheter. Coronary stent insertion was performed and the equipment ?utilized will be described in [facility] intervention summary section. 9,000 ?units of heparin [...] guiding catheter an d a 3.[address] ??20 Mhz ?using Manual pullback. ??Imagin [...] A premounted 2.00 x 26 mm Hardeep Glascock (TUCKER) ? was deployed wi a maximum [...] Wedelivered along 2.0 x 26 mm HARDEEP Glascock ? TUCKER stent and p ositioned it at the ostium of the RPDA ? extending into the mid RPDA and deployed it at 12 darshan. We then ? usedthe jacob me to post-dilate the stent to 20atm ? [...] dose administered prior to arrival in the label printer. ?Recommended anti-platelet/anti- thrombotic regimen: ?Continue aspirin 81 [...] using a 2.0 x 26 mm HARDEEP Glascock TUCKER stent. ?This completes the revasculariz ation [...] Procedure Note Vitaliy Nobles MD - 03/06/2022 [facility] Cardiac Catheterization/Intervention Re port Patient Name: Don Fatima Procedure Date: 01/30/2022 A #: [id number] Primary Physician: Vitaliy Nobles Case #: [id number] File Name: [id number] Catheterization Order Number: [id number] [facility] Final Report [place], [place] Patient Name: Don Fatima ID#: [...] He has a prior history of coronary goergie ry disease. The patient is status post [...] was Urgent. The indication for the label printer visit is stable known CAD. Chest pain [...] 1.5 guiding catheter and a 3.[address] 20 Mhz using Manual pullback. Imaging [...] atmospheres. A premounted 2.00 x 26 mm [place] Glascock (TUCKER) was deployed with a maximum inflation [...] along 2. 0 x 26 mm HARDEEP Glascock TUCKER stent and positioned it at the [...] administered prior t o arrival in the label printer. Recommended anti-platelet/anti-thrombot ic regimen: Continue aspirin 81 [...] require modification of this regimen. Consult [facility] Interventional [...] using a 2.0 x 26 mm HARDEEP Glascock TUCKER stent. This completes the revascularization of [...] Glucose 212 (H) 65 - 199 [facility]/dL [facility] Comment: Supplemental ranges: <140 mg/dL before meals <180 mg/dL all other times of the day Specimen Anatomical Collection Method Collection Time Receive d Time (Source) Location / / Volume Laterality Blood 01/30/2022 9:04 AM 2 9:04 EDT AM EDT Vitaliy Nobles MD POINT OF CARE TEST ORDERABLE S Performing Organization Address City/State/ZIP [place] [address] (ABNORMAL) POCT Glucose (01/30/2022 8:10 AM EDT) athologist Signature POC Glucose 224 (H) 65 - 199 [facility] mg/dL [facility] Comment: Supplemental ranges: <140 mg/dL before meals <180 mg/dL all other times of the day Specimen Anatomical Collection Method Collection Time Receive d Time (Source) Location / / Volume Laterality Blood 01/30/2022 8:10 AM 2 8:10 EDT AM EDT Vitaliy Nobles MD POINT OF CARE TEST ORDERABLE S Performing Organization Address City/[facility]/ZIP [place] [address] documented in this encounter [...] Given 02/2022 10:11 AM EDT 100 mcg (SIEBEL CRM DEVELOPER) ONCE PRN, Starting on Wed01/30/22 at 0927, [...] Procedure), Routine niCARdipine (Cardene) (100 mcg/mL) dilution (SIEBEL CRM DEVELOPER) (CANCELED ) 0927 (Given - Provider: Vitaliy [...] (Intra-Procedure) documented in this encounter Care Teams Clinical Provider Trainer Relationship Specialty Start Date End Date Lovely Vicente MD PCP - General 04/16/[address] [place] [address] documented as of this encounter
--- OUTSIDE RECORDS SUMMARY | 2022-03-13 10:52 | XMS_ITS | Encounter Summary ---
:1945 [place] [address] Care Team Providers Name Role Phone Lovely Vicente MD Primary Care Provider Encounter Details Date Type Department Care Team Description 12/30/2021 Notes Only Cardiac Rehab [facility] Linnea Deluca, V[facility] [place] [address] Social History Tobacco Use Types Packs/Day [...] Failure team. DX: HFrEF. Referral placed to [facility] documented in this encounter Plan of Treatment Upcoming Encounters Date Type Specialty Care Team Description 03/26/2022 Office Visit Cardiology Vitaliy Nobles MD [facility] ER DR TADEO [place], [place] [address] (Wo rk) 05/28/2022 Appointment Cardiology Zulma Dolan MD [facility] [place], [place] [address] (Wo rk) 05/28/2022 Laboratory Appointment Lab 05/28/2022 Office Visit Cardiology Zulma Dolan MD [facility] [place] [address] Liz Poole PA [facility] [place] [address] 06/10/2022 Office Visit Dermatology Laura Scherer MD [facility] [address]MAT [place], [place] 0[address] (Wo rk) documented as of this encounter Visit Diagnoses Not on filedocumented in this encounter Care Teams Bakery Products Checker Relationship Specialty Start Date End Date Lovely Vicente MD PCP - General 04/16/[address] [place] [address] documented as of this encounter
--- OUTSIDE RECORDS SUMMARY | 2022-03-13 10:52 | XMS_ITS | Encounter Summary ---
:1945 [place] [address] Care Team Providers Name Role Phone Lovely Vicente MD Primary Care Provider Encounter Details Date Type Department Care Team Description 12/24/2021 Orders Only Longshore Equipment Operator Zulma Finch ASCVD (art eriosclerotic [facility] cardiovascular disease) [facility] [place] [address] [place], [place] [phone] (Work) [phone] Social History Tobacco Use Types Packs/Day Years [...] [facility] [address] [place]LY[address] [place] [address] (Wo rk) 05/28/2022 Appointment Cardiology Zulma Dolan MD [facility] [address] [place] [address] (Wo rk) 05/28/2022 Laboratory Appointment Lab 05/28/2022 Office Visit Cardiology Zulma Dolan MD [facility] [place] [address] Liz Poole PA [facility] [place] [address] 06/10/2022 Office Visit Dermatology Laura Scherer MD [facility] ER DR [address]-DERMAT [place], [place] [address] (Wo rk) documented as of this encounter Visit Diagnoses Diagnosis ASCVD (arteriosclerotic cardiovascular d isease) Unspecified cardiovascular disease documented in this encounter Care Teams Senior Project Architect Relationship Specialty Start Date End Date Lovely Vicente MD PCP - General 04/16/[address] [place] [address] documented as of this encounter
--- OUTSIDE RECORDS SUMMARY | 2022-03-13 10:52 | XMS_ITS | Encounter Summary ---
:1945 Author Organization [facility] [place] [address] Care Team Providers Name Role Phone Loevly Vicente MD Primary Care Provider Encounter Details Date Type Department Care Team Description 02/24/2022 Orders Only [facility] Liz Poole, Chronic systolic heart [facility] [place] [address] Cardiology Dept [place], [place] [address] Social History Tobacco Use Types [...] Nobles MD [facility] ER DR [place]LE [place], [place] [address] (Wo rk) 05/28/2022 Appointment Cardiology Zulma Dolan MD [facility] er [address] [place], [place] [address] (Wo rk) 05/28/2022 Laboratory Appointment Lab 05/28/2022 Office Visit Cardiology Zulma Dolan MD [facility] [place] [address] [facility] [place] [address] 06/10/2022 Office Visit Dermatology Laura Scherer MD [facility] ER DR [address]-DERMAT [place], [place] [address] (Wo rk) documented as of this encounter Visit Diagnoses Diagnosis Chronic systolic heart failure documented in this encounter Care Teams Drapery Maker Relationship Specialty Start Date End Date Lovely Vicente MD PCP - General 04/16/[address] [place] [address] documented as of this encounter
--- OUTSIDE RECORDS SUMMARY | 2022-03-13 10:52 | XMS_ITS | Encounter Summary ---
:1945 Author Organization [facility] [place] [address] Care Team Providers Name Role Phone Lovely Vicente MD Primary Care Provider Reason for Referral Diagnostic Test (Routine) - New Request Specialty Diagnoses / Procedures Referred By Contact Refer red To Contact Cardiology Diagnoses Chronic systolic heart failure Liz Carrera PA [facility] Non-Inv Card Lab Procedures Echocardiogram Transthoracic [facility] [place] [address] [place] [address] Fax: Referral ID Status Reason Start Expiration Visits Visits Date Date Requested Authorized [id number] New Request Specialty 02/19/2022 02/19/2023 1 1 Service Requested Encounter Details Date Type Department Care Team Description 02/19/2022 Office Visit Cardiology at [facility] [place] Liz Carrera, Chronic systolic heart [facility] [place] [address] Cardiology Dept [phone] [place], [place] [address] Social History Tobacco Use Types [...] [place] on 12/08/21, transferred from [facility], respiratory distress with [...] mg PO daily in place of Lasix. [place] is new for him and he will [...] his PCP. He started [facility] in [facility]. Monitored vitals/trends at home: Weight [...] Antiplatelet (DAPT) Recommendations above ? TTE from [facility] 12/08/21 ?? 07/28/2019 Echocardiogram: SUMMARY: [...] regurgitation present. 07/07/2019 - 07/21/2019 Zio Patch Statistical Typist The patient had a minimum heart rate [...] 12.5 mg daily 6. Post-op atrial fibrillation [id number] (CHF, HTN, DM, vascular disease, thromboembolism) Eliquis 7. PAD 08/06/2017: Right 1st, 2nd, 3rd toe amputation 08/11/2017: Left??femoral arterial access, RLE??angiogram, Balloon angioplasty of R PT 10/25/2017: right popliteal-pedal bypass at [facility] 8. Hypothyrodism S/p thyroidectomy for [...] Nobles MD [facility] [address] [place], [place] [address] (Wo rk) 05/28/2022 Appointment Cardiology Zulma Dolan MD [facility] [place], [place] [address] (Wo rk) 05/28/2022 Laboratory Appointment Lab 05/28/2022 Office Visit Cardiology Zulma Dolan MD [facility] [place] [address] Liz Carrera PA [facility] [place] [address] 06/10/2022 Office Visit Dermatology Laura Scherer MD [facility] DR [address] [place], [place] [address] (Wo rk) Scheduled Orders Name Type Priority Associated Order Schedule Diagnoses Echocardiogram Echocardiography Routine Chronic systolic Expec vlad: Transthoracic heart failure 05/22/2022 (Approximate), Expires: 11/21/2022 documented as of this encounter Results (ABNORMAL) Basic Metabolic Panel (non-fasting) (02/19/2022 8:06 AM EDT) athologist Signature Glucose Lvl 139 65 - 199 [facility] mg/dL [facility] Comment: Diabetes: >=200 mg/dL plus symp toms BUN 31 (H) 10 - 20 mg/dL [facility] Creatinine 1.53 (H) 0.80 - 1.50 mg/dL [facility] Sodium 142 135 - 145 mmol/L [facility] Potassium 5.4 (H) 3.5 - [...] Calcium 9.7 8.5 - 10.5 mg/dL [facility] Estimated GFR 47 (L) >=60 [...] Address City/State/Z[place] [address] (ABNORMAL) pro-Brain Natriuretic Peptide [...] Address City/State/Z[place] [address] documented in this encounter Visit Diagnoses Diagnosis Chronic systolic heart failure documented in this encounter Care Teams Animal Killer Relationship Specialty Start Date End Date Lovely Vicente MD PCP - General 04/16/[address] [place] [address] [address] [place] [address] documented as of this encounter
--- OUTSIDE RECORDS SUMMARY | 2022-03-13 10:52 | XMS_ITS | Encounter Summary ---
:1945 Author Organization [facility] [place] [address] Care Team Providers Name Role Phone Lovely Vicente MD Primary Care Provider Encounter Details Date Type Department Care Team Description 12/25/2021 Laboratory Appointment Lab 3L [facility] [place] [id number] Social History Tobacco Use Types Packs/Day Years [...] Nobles MD [facility] [address] [place], [place] [address] (Wo rk) 05/28/2022 Appointment Cardiology Zulma Dolan MD [facility] [address] [place] [address] (Wo rk) 05/28/2022 Laboratory Appointment Lab 05/28/2022 Office Visit Cardiology Zulma Dolan MD [facility] [place] [address] Liz Poole PA [facility] [place] [address] 06/10/2022 Office Visit Dermatology Laura Scherer MD [facility] ER DR [address] [place], [place] [address] (Wo rk) documented as of [...] (ABNORMAL) Differential, Automated (12/25/2021 7:46 AM EDT) [facility] Method Time Signature Neutrophils % 82.6 % [facility] Neutr Abs (ANC) 9.37 (H) 1.70 - [facility] 6.10 [facility] x10(3)/[facility] L LABORATORY Lymphocytes % 7.1 % [facility] Lymphocytes Abs 0.8 (L) 0.9 - 3.2 [facility] x10(3)/[facility] LABORATORY Monocytes % 8.8 % [facility] Monocyte Abs 1.0 (H) 0.3 - 0.9 [facility] x10(3)/[facility] LABORATORY Eosinophils % 0.4 % [facility] Eosinophils Abs 0.0 0.0 - 0.4 [facility] x10(3)/[facility] LABORATORY Basophils % 0.4 % [facility] Basophils Abs 0.0 0.0 - 0.1 [facility] x10(3)/[facility] LABORATORY Immature Gran % 0.70 % [facility] [...] Abs 0.08 (H) 0.00 - 0.04 x10(3)/[facility] LABORATORY Specimen Anatomical Collection Method Collection Time Receive d Time (Source) Location / / Volume Laterality Blood 12/25/2021 7:46 AM 8:01 EDT AM EDT Resulting Agency Comment Spec In Lab Liz BROWN HEMATOLOGY ORDERABLES Performing Organization Address City/State/Z[place] [address] (ABNORMAL) Hemogram (12/25/2021 7:46 AM EDT) Analysis Performed At Patho logist Time Signature WBC 11.4 (H) 4.0 - 9.5 [facility] x10(3)/[facility] LABORATORY RBC 4.23 (L) 4.58 - [facility] RYAN 5.54 [facility] x10(6)/[facility] LABORATORY Hemoglobin 12.3 (L) 13.7 - [facility] 16.5 g/dL [facility] Hematocrit 37.7 (L) 40.5 - [facility] RYAN 48.5 % [facility] MCV 89.1 82.9 - [facility] 93.1 fL [facility] MCH 29.1 27.5 - [place] RYAN 32.1 pg [facility] MCHC 32.6 32.0 - [facility] 35.7 g/dL [facility] Platelets 215 145 - 357 [facility] x10(3)/[facility] LABORATORY RDWSD 49.8 (H) 36.0 - [facility] 45.0 [facility] LABORATORY RDWCV 15.2 (H) 11.4 - [facility] 13.8 % [facility] MPV 9.2 7.6 - 12.9 [facility] LABORATORY nRBC % Auto 0.0 % [facility] nRBC Abs Auto 0.000 0.000 - [facility] 0.000 [facility] x10(3)/[facility] LABORATORY Specimen Anatomical Collection Method Collection Time Receive d Time (Source) Location / / Volume Laterality Blood 12/25/2021 7:46 AM 8:01 EDT AM EDT Resulting Agency Comment Spec In Lab Liz BROWN HEMATOLOGY ORDERABLES Performing Organization Address City/State/ZIP [place] [address] (ABNORMAL) Basic Metabolic Panel (non-fasting) (12/25/2021 7:46 AM EDT) athologist Signature Glucose Lvl 272 (H) 65 - 199 [facility] mg/dL [facility] Comment: Diabetes: >=200 mg/dL plus symp toms BUN 62 (H) 10 - 20 mg/dL [facility] Creatinine 1.81 (H) 0.80 - 1.50 mg/dL [facility] Sodium 134 (L) 135 [...] Chloride 95 (L) 98 - 107 mmol/L [facility] CO2 28 22 - 31 mmol/L [facility] Anion Gap 11 5 - 15 mmol/L [facility] Calcium 9.4 8.5 - 10.5 mg/dL [facility] Estimated GFR 36 (L) >=60 mL/min/1.73 m?? [facility] [...] Organization Address City/State/[place] [address] (ABNORMAL) pro-Brain Natriuretic Peptide (12/25/2021 7:46 AM EDT) P athologist Signature ProBNP 1,380 (H) <=124 [facility] Specimen Anatomical Collection Method Collection Time Receive d Time (Source) Location / / Volume Laterality Blood 12/25/2021 7:46 AM 2 8:01 EDT AM EDT Resulting Agency Comment Spec In Lab Zulma Plunkett MD CHEMISTRY ORDERABLES Performing Organization Address City/State/[place] [address] documented in this encounter Visit Diagnoses Diagnosis Chronic systolic heart failure documented in this encounter Care Teams Miller Head Assistant Wet Process Relationship Specialty Start Date End Date Lovely Vicente MD PCP - General 04/16/[address] [place] [address] documented as of this encounter
--- OUTSIDE RECORDS SUMMARY | 2022-03-13 10:52 | XMS_ITS | Encounter Summary ---
:1945 Author Organization [facility] [place] [address] Care Team Providers Name Role Phone Lovely Vicente MD Primary Care Provider Reason for Visit Reason Onset Date Comments Advice Only 01/28/2022 Encounter Details Date Type Department Care Team Description 01/28/2022 Telephone Cardiology at [facility] Chitra Angela, business [place] [address] Social History Tobacco Use Types Packs/Day [...] Fatima assists patient with medications. Number for dye lab technician scheduling given and she will call them to verify this information Meds reviewed. As per our form from dye lab technician Eliquis hold for 48 hours [...] MD [facility] [address] [place], [place] [address] (Wo rk) 05/28/2022 Appointment Cardiology Zulma Dolan MD [facility] [place], [place] [address] (Wo rk) 05/28/2022 Laboratory Appointment Lab 05/28/2022 Office Visit Cardiology Zulma Dolan MD [facility] [place] [address] Liz Poole PA [facility] [place] [address] 06/10/2022 Office Visit Dermatology Laura Scherer MD [facility] DR [address] [place], [place] [address] (Wo rk) documented as of this encounter Visit Diagnoses Not on filedocumented in this encounter Care Teams Butter Printer Relationship Specialty Start Date End Date Lovely Vicente MD PCP - General 04/16/[address] [place] [address] documented as of this encounter
--- OUTSIDE RECORDS SUMMARY | 2022-03-13 10:52 | XMS_ITS | Clinical Summary ---
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; ASHD (arteriosc lerotic heart disease) 01/28/2022 Orders Only Cardiology Teressa ASCVD (arterios clerotic STEPHANIE Maya cardiovascular disease) 01/28/2022 Telephone Cardiology Chitra Angela RN 12/30/2021 Notes Only Cardiology Rebeka Deluca RN 12/25/2021 Office Visit Cardiology Vendetti, Chronic systoli c heart Liz, PA failure 12/25/2021 Laboratory Lab Chronic systoli c heart Appointment failure 12/24/2021 Telephone [facility] Dayami Buckner 12/24/2021 Orders Only Cardiology Teressa ASCVD (arterios clerotic STEPHANIE Maya cardiovascular disease) 12/15/2021 Telephone Cardiology Barbara Mera RN 12/12/2021 Refill Cardiology Valerie, Medication Refi ll STEPHANIE Tellez (Torsemide) 12/12/2021 Telephone Cardiology Brabara Mera RN 12/08/2021 - Hospital Encounter Iker Cuevas Non-ST [...] Nobles MD [facility] CARDIOLOGY [place], [place] [address] (Wo rk) 05/28/2022 Appointment Cardiology Zulma Dolan MD [facility] [place], [place] [address] (Wo rk) 05/28/2022 Laboratory Appointment Lab 05/28/2022 Office Visit Cardiology Zulma Dolan MD [facility] [place] [address] Liz Poole PA [facility] [place] [address] 06/10/2022 Office Visit Dermatology Laura Scherer MD [facility] [address] OLOGY [place], [place] [address] (Wo rk) Health Maintenance Due Date Last Done Comments Covid-19 Vaccine (#1) 1950 Pneumoccocal Vaccine: 65+ (1 - PCV) 1952 Hepatitis C Screening 1964 Tdap adult 1965 Tetanus vaccine 1965 Zoster vaccine (1 of 2) 1996 Colonoscopy 01/16/2019 01/16/2014, 01/16/2014 Influenza (Flu) vaccine (1 of 1 - 03/26/2022 03/29/2013, Influenza standard series) Medical Devices Implanted Type Area Machine Set Up Operator Paper Goods Device Shelf Model / Identifier Expiration Serial / Date Lot Cable,Cut,Edg,Blnt,Ss,3tpr ([id number]) - [id number] IMPLANTS Midline: [employer] 04/01/2022 [id number] / Implanted: Qty: 4 on 07/07/2017 by Yuan Retana MD at [facility] [employer] - / [id number] Procedures Procedure Name Priority Date/Time Associated Diagnosis [...] (03/05/2022 7:04 AM EDT)Only the most recent of5 resultswithin [...] (02/19/2022 8:06 AM EDT)Only the most recent of6 results within the time period is included. Analysis Performed At Patho logist Time Signature WBC 7.2 4.0 - 9.5 [employer] x10(3)/[facility] LABORATORY RBC 4.41 (L) 4.58 - BARBARA SU 5.54 [facility] x10(6)/[facility] LABORATORY Hemoglobin 13.2 (L) 13.7 - BARBARA SU 16.5 g/dL [facility] LABORATORY Hematocrit 40.9 40.5 - BARBARA SU 48.5 % [facility] LABORATORY MCV 92.7 82.9 - VisiQuateSU 93.1 fL [facility] LABORATORY MCH 29.9 27.5 - BARBARA SU 32.1 pg [facility] LABORATORY MCHC 32.3 32.0 - BARBARA SU 35.7 g/dL [facility] LABORATORY Platelets 191 145 - 357 [employer] x10(3)/[facility] LABORATORY RDWSD 53.6 (H) 36.0 - BARBARA SU 45.0 [facility] LABORATORY RDWCV 15.6 (H) 11.4 - [facility] 13.8 % [facility] LABORATORY MPV 8.7 7.6 - 12.9 [facility] LABORATORY nRBC % Auto 0.0 % [facility] LABORATORY nRBC Abs Auto 0.000 0.000 - [facility] 0.000 [facility] x10(3)/[facility] LABORATORY Specimen Anatomical Collection Method Collection Time Receive d Time (Source) Location / / Volume Laterality Blood 02/19/2022 8:06 AM 8:09 EDT AM EDT Resulting Agency Comment Spec In Lab Liz BROWN HEMATOLOGY ORDERABLES Performing Organization Address City/State/[place] [address] (ABNORMAL) Differential, Automated (02/19/2022 8:06 AM EDT)Only the most recent of6 resultswithin the time period is included. [facility] gist Method Time Signature Neutrophils % 76.0 % [facility] LABORATORY Neutr Abs (ANC) 5.49 1.70 - [facility] 6.10 [facility] x10(3)/[facility] LABORATORY Lymphocytes % 10.8 % [facility] LABORATORY Lymphocytes Abs 0.8 (L) 0.9 - 3.2 [facility] x10(3)/[facility] LABORATORY Monocytes % 10.2 % [facility] LABORATORY Monocyte Abs 0.7 0.3 - 0.9 [facility] x10(3)/[facility] LABORATORY Eosinophils % 1.2 % [facility] LABORATORY Eosinophils Abs 0.1 0.0 - 0.4 [facility] x10(3)/[facility] LABORATORY Basophils % 0.8 % [facility] LABORATORY Basophils Abs 0.1 0.0 - 0.1 [facility] x10(3)/[facility] LABORATORY Immature Gran % 1.00 [...] Abs 0.07 (H) 0.00 - 0.04 x10(3)/mcL [facility] LABORATORY Specimen Anatomical Collection Method Collection Time Receive d Time (Source) Location / / Volume Laterality Blood 02/19/2022 8:06 AM 2 8:09 EDT AM EDT Resulting Agency Comment Spec In Lab Liz BROWN HEMATOLOGY ORDERABLES Performing Organization Address City/[facility] [place] [address] (ABNORMAL) pro-Brain Natriuretic Peptide [...] Plunkett MD CHEMISTRY ORDERABLES Performing Organization Address City/[facility]/[place] [address] POCT Glucose (01/30/2022 1:41 PM EDT)Only the most recent of14 resultswithin the time period is included. P athologist Signature POC Glucose 148 65 - 199 [facility] mg/dL [facility] LABORATORY Comment: Supplemental ranges: <140 mg/dL before meals <180 mg/dL all other times of the day Specimen Anatomical Collection Method Collection Time Receive d Time (Source) Location / / Volume Laterality Blood 01/30/2022 1:41 PM 2 1:41 EDT PM EDT Vitaliy Nobles MD POINT OF CARE TEST ORDERABLE S Performing Organization Address City/[facility]/[place] [address] EKG 12 Lead (01/30/2022 10:33 AM EDT) Component Value Ref Range Test Analysis Performed Pathologis t Method Time At Signature Ventricular rate 64 BPM MUSE SYSTEM Atrial Rate 64 BPM MUSE SYSTEM P-R Interval 162 ms MUSE SYSTEM QRS Duration 94 ms MUSE SYSTEM Q-T Interval 422 ms MUSE SYSTEM QTC Calculated 435 ms MUSE SYSTEM (Bezet) Calculated P Manor 41 degrees MUSE SYSTEM Calculated R Manor -27 degrees MUSE SYSTEM Calculated T Manor 104 degrees MUSE SYSTEM INTERPRETATION Normal sinus rhythm MUSE SYSTEM Anterolateral infarct (cited on or before 09-DEC-2021) Abnormal ECG When compared with ECG of 10-DEC-2021 11:17, No significant change was found Confirmed by Gary Perez ([id number]) on 01/30/2022 5:57:5 2 PM Specimen Anatomical [...] SYSTEM - 01/30/2022 2:09 PM ED T ?[facility] ? Cardiac Cathete rization/Intervention Report ? Patient Name: KushalDon ? Procedure Date: 01/30/2022 ? A #: [id number] ? Primary Physician: Vitaliy Nobles ? Case #: [id number] ? File Name: [id number] ? Catheterization Order Number: [id number] ? [facility] ? Final Report [place], [place] ? Patient Name: ? Don E. Stewa rt ? ID#: ?[id number] ? : ?1945 ? Procedure Date: ? January 30, 2022 ? Case #: ? [id number] ? Room: ? 1 ? Case Physician: ? Fabian Lopez ?Start: ?08:54 ?Fellow: ? Eddi Elizabeth Jr., MRafael ?Admission: ??01/30/2022 ? Discharge: ??01/30/2022 ? Procedures: ?* Coronary Angiography ?* Left Heart Catheterization ?* Bypass Graft Study ?* Coronary Ultrasound ?* Coronary Stent Insertion ?* Peripheral Intravascular Ultr asound ? History ?Don Fatima is a 76 year o ld man. He has hypertension. The patient's ?smoking status is Former. He elach s hypercholesterolemia managed with lipid ?therapy. The [...] patient was ?designated as ASA Class III. [facility] clinical frailty scale is 5: Mildly [...] procedure was Urgent. The indication for ?the solder making laborer visit is stable kn own CAD. [...] guiding catheter an d a 3.5 Fr [facility] [address] ??20 Mhz ?using Manual pullback. ??Imagin [...] insertion was accomplished through a 6 Fr. Hernandez Right ? 2.0 guide. ??Th e lesion was predilated with a 2.00mm NC EUPHORA ? 15 MM balloon w ith a maximum inflation pressure of 26 ? atmospheres. ?? A premounted 2.00 x 26 mm Hardeep Van (TUCKER) ? was deployed wi th a [...] Wedelivered along 2.0 x 26 mm HARDEEP Van ? TUCKER stent and p ositioned it [...] dose administered prior to arrival in the solder making laborer. ?Recommended anti-platelet/anti- thrombotic regimen: ?Continue aspirin [...] of this regimen. C onsult [facility] Interventional Cardiology for ?questions. ?The 1 year bleeding risk as nusrat culated by the PRECISE DAPT score is High ?risk. ?High Bleeding Risk - Anticoagul ation and DAPT: ?- ??Assess ischemic and bleedin g risks using validated risk predictors ?(e.g. CHADS2-VASC, HAS-BLED, [place] ECISE DAPT, DAPT Score) ?- ??Keep anticoagulant [...] using a 2.0 x 26 mm HARDEEP Van TUCKER stent. ?This completes the revasculariz ation [...] Procedure Note Vitaliy Nobles MD - 03/06/2022 [facility] Cardiac Catheterization/Intervention Re port Patient Name: Don FatimaMadiha Procedure Date: 01/30/2022 A #: [id number] Primary Physician: Vitaliy Nobles Case #: [id number] File Name: [id number] Catheterization Order Number: [id number] [facility] Final Report [place], [place] Patient Name: Don Fatima ID#: [id number] : 1945 Procedure Date: January 30, 2022 Case #: [id number] Room: 1 Case Physician: Vitaliy Nobles M.D. [...] was designated as ASA Class III. The [facility] c linical frailty scale is 5: Mildly [...] e was Urgent. The indication for the solder making laborer visit is stable known CAD. Chest pain symptom assessment was: Typical Angina. Technique: A 6 SLFr sheath was inserted in the [facility] radial artery utilizing the Seldinger technique. The [...] 1.5 guiding catheter and a 3.[address] [facility] 20 Mhz using Manual pullback. Imaging [...] A premounted 2.00 x 26 mm Hardeep Van (TUCKER) was deployed with a maximum inflation [...] along 2. 0 x 26 mm HARDEEP Van TUCKER stent and positioned it at the [...] administered prior t o arrival in the solder making laborer. Recommended anti-platelet/anti-thrombot ic regimen: Continue aspirin [...] require modification of this regimen. Consult D [facility] Interventional Cardiology for questions. The 1 year [...] using a 2.0 x 26 mm HARDEEP Van TUCKER stent. This completes the revascularization of [...] (12/12/2021 6:00 AM EDT)Only the most recent of3 resultswithin the time period is included. Narrative This result has an attachment that is no t available. Unknown MEDIA MGR SCAN EXT ORDR/RSLT (ABNORMAL) BMP w/fasting Glucose (12/12/2021 4:51 AM EDT)Only the most recent of 2 resultswithin the time period is included. athologist Signature Glucose 152 (H) 65 - 99 BARBARA DAVIS Fasting mg/dL [facility] LABORATORY Comment: ?Fasting* Glucose Interpretive C [...] of Diabetes Mellitus, Position Statement from the [place] Diabetes Association. ??Diabete s Care, Volume 33, Supplement 1, Jul 2009 BUN 52 (H) 10 - 20 mg/dL [facility] LABORATORY Creatinine 1.72 (H) 0.80 - [...] 17 (H) 5 - 15 mmol/L [facility] LABORATORY Calcium 8.9 8.5 - 10.5 [...] [facility]/[place] [address] (ABNORMAL) Prothrombin Time (12/12/2021 4:51 AM EDT)Only the most recent of2 resultswithin the time period is included. P athologist Signature PT 14.9 (H) 9.4 - 12.5 [facility] LABORATORY INR 1.3 [facility] [...] [facility]/[place] [address] Magnesium (12/12/2021 4:51 AM EDT)Only the most recent of2 resultswithin the time period is included. P athologist Signature Magnesium 1.02 0.69 - 1.07 [facility] mmol/L [facility] LABORATORY Specimen Anatomical Collection Method Collection Time Receive d Time (Source) Location / / Volume Laterality Blood 12/12/2021 4:51 AM 2 5:06 EDT AM EDT Resulting Agency Comment Spec In Lab Iker Cuevas MD CHEMISTRY ORDERABLES Performing Organization Address City/[facility]/[place] [address] COVID-19 PCR (12/11/2021 10:13 AM EDT) [facility] Method Time Signature SARS-CoV-2 Not Detected Not Detected BARBARA RNA [facility] LABORATORY Comment: This result should be interpreted [...] diagnosis of COVID-19 is performed using the [employer] S-CoV-2 Assay as authorized by the FDA Emergency Use Authorization (EUA). This EUA assay is intended for In-vitro Diagnostic (IVD) use with respiratory sp ecimens such as nasopharyngeal swabs collected from individuals during the ac terrence phase of infection. This assay is performed based on the instructions for use provided by [employer] and additional guidance provided by CDC [...] clinical management guidance information are available at [facility] CDC Coronavirus Disease 2019 (COVID-19) webpage under Information fo r Healthcare Professionals (https://www.cdc.gov/coronavirus/2019-nc ov/hcp/index.html) Additional information about this and ot her EUA tests can be found in provider and patient fact sheets at the following FDA website: https://www.fda.gov/medical-devices/yrixgwwwcmu-hjnrzzw-5533-qgppr-51-oukgouxyw- atj-meuyfnhbudnyja-jbvdhoi-devices/polgj-ifziwahjaby-zwlt SARS-Cov-2 RNA Source ACCOUNT LIAISON Swab [facility] LABORATORY Specimen (Source) Anatomical Collection Method Collection Time Re ceived Time Location / / Volume Laterality Nasopharyngeal Swab 12/11/2021 10:13 11/23 AM EDT 11:16 AM EDT Comment: Symptoms->Surveillance Resulting Agency Comment Spec In Lab Iker Cuevas MD MICROBIOLOGY - GENERAL ORDER [place] Performing Organization Address City/State/[place] [address] from Last 3 Months Insurance Payer Benefit Plan / Subscriber ID Effective Phone Address T ype Group Dates MEDICARE MEDICARE PART [id number] 2011-Prese [phone] [place] [id number] [employer] [place] [id number] 2018-Prese [phone] [address] [facility] [place] [address] [facility] [place] [address] Advance Directives Documents on File Type Date Recorded Patient Manager Travel Explanati on Advance Directives and Living 03/28/2013 [...] capacity to make decision: Yes Care Teams Medical Administrator Relationship Specialty Start Date End Date Lovely Vicente MD PCP - General 04/16/[address] [place] [address]
--- OUTSIDE RECORDS SUMMARY | 2022-03-13 10:52 | XMS_ITS | Encounter Summary ---
:1945 Author Organization [facility] [place] [address] Care Team Providers Name Role Phone Lovely Vicente MD Primary Care Provider Encounter Details Date Type Department Care Team Description 12/12/2021 Telephone Cardiology at [facility] [place] [phone] Social History Tobacco Use Types Packs/Day [...] - 12/12/2021 11:36 AM EDT RTC to [employer] regarding pharmacists questions as to whether the [...] [facility] ER [address] [place], [place] [address] (Wo rk) 05/28/2022 Appointment Cardiology Zulma Dolan MD [facility] [place], [place] [address] (Wo rk) 05/28/2022 Laboratory Appointment Lab 05/28/2022 Office Visit Cardiology Zulma Dolan MD [facility] [place] [address] Liz Poole PA [facility] [place] [address] 06/10/2022 Office Visit Dermatology Laura Scherer MD [facility] [address] [place], [place] [address] (Wo rk) documented as of this encounter Visit Diagnoses Not on filedocumented in this encounter Care Teams Can Capper Relationship Specialty Start Date End Date Lovely Vicente MD PCP - General 04/16/[address] [facility] [address] [place] [address] documented as of this encounter
--- OUTSIDE RECORDS SUMMARY | 2022-03-13 10:52 | XMS_ITS | Encounter Summary ---
:1945 Author Organization [facility] [place] [address] Care Team Providers Name Role Phone Lovely Vicente MD Primary Care Provider Encounter Details Date Type Department Care Team Description 12/15/2021 Telephone Cardiology at [facility] Barbara Mera, [place] [address] Social History Tobacco Use Types Packs/Day [...] MD [facility] [address] [place], [place] [address] (Wo rk) 05/28/2022 Appointment Cardiology Zulma Dolan MD [facility] [place], [place] [address] (Wo rk) 05/28/2022 Laboratory Appointment Lab 05/28/2022 Office Visit Cardiology Zulma Dolan MD [facility] [place] [address] Liz Poole PA [facility] [place] [address] 06/10/2022 Office Visit Dermatology Laura Scherer MD [facility] DR [address]DERMAT [place], [place] [address] (Wo rk) documented as of this encounter Visit Diagnoses Not on filedocumented in this encounter Care Teams Math Interventionist Relationship Specialty Start Date End Date Lovely Vicente MD PCP - General 04/16/[address] [place] [address] documented as of this encounter
--- OUTSIDE RECORDS SUMMARY | 2022-03-13 10:52 | XMS_ITS | Encounter Summary ---
:1945 [place] [address] Care Team Providers Name Role Phone Lovely Vicente MD Primary Care Provider Encounter Details Date Type Department Care Team Description 12/25/2021 Office Visit Cardiology at [facility] Liz Poole, Chronic systolic heart [facility] [place] [address] Cardiology Dept [phone] [place], [place] [address] Social History Tobacco Use Types [...] As per DC Summary - Admitted to [facility] on 12/08/21, transferred from [facility], respiratory distress with hypoxia [...] mg PO daily in place of Lasix. [place] is new for him and he will [...] Antiplatelet (DAPT) Recommendations above ? TTE from [facility] 12/08/21 ?? 07/28/2019 Echocardiogram: [...] regurgitation present. 07/07/2019 - 07/21/2019 Zio Patch Regrinder The patient had a minimum heart rate [...] hyperkalemia 4.9 today 6. Post-op atrial fibrillation [id number] (CHF, HTN, DM, vascular disease, thromboembolism) Eliquis 7. PAD 08/06/2017: Right 1st, 2nd, 3rd toe amputation 08/11/2017: Left??femoral arterial access, RLE??angiogram, Balloon angioplasty of R PT 10/25/2017: right popliteal-pedal bypass at [facility] 8. Hypothyrodism S/p thyroidectomy for goiter Levothyroxine ?? Plan: 1 month follow up with labs Liz Poole PA-C 12/25/2021 documented in this encounter Plan of Treatment Upcoming Encounters Date Type Specialty Care Team Description 03/26/2022 Office Visit Cardiology Vitaliy Nobles MD [facility] CARDIOLOGY [place], [place] [address] (Wo rk) 05/28/2022 Appointment Cardiology Zulma Dolan MD [facility] [place], [place] [address] (Wo rk) 05/28/2022 Laboratory Appointment Lab 05/28/2022 Office Visit Cardiology Zulma Dolan MD [facility] [place] [address] Liz Poole PA [facility] [place] [address] 06/10/2022 Office Visit Dermatology Laura Scherer MD [facility] DR [address] OLOGY [place], [place] [address] (Wo rk) documented as of this encounter Results (ABNORMAL) pro-Brain Natriuretic Peptide (12/25/2021 7:46 AM EDT) athologist Signature ProBNP 1,380 (H) <=124 [facility] pg/mL [facility] LABORATORY Specimen Anatomical Collection Method Collection Time Receive d Time (Source) Location / / Volume Laterality Blood 12/25/2021 7:46 AM 8:01 EDT AM EDT Resulting Agency Comment Spec In Lab Zulma Plunkett MD CHEMISTRY ORDERABLES Performing Organization Address City/State/[place] [address] (ABNORMAL) Basic Metabolic Panel (non-fasting) (12/25/2021 7:46 AM EDT) athologist Signature Glucose Lvl 272 (H) 65 - 199 [facility] mg/dL [facility] LABORATORY Comment: Diabetes: >=200 mg/dL plus symp toms BUN 62 (H) 10 - 20 mg/dL [facility] LABORATORY Creatinine 1.81 (H) 0.80 - [...] 15 mmol/L [facility] LABOR[facility] Calcium 9.4 8.5 - 10.5 [...] Organization Address City/State/[place] [address] documented in this encounter Visit Diagnoses Diagnosis Chronic systolic heart failure documented in this encounter Care Teams Beer Runner Relationship Specialty Start Date End Date Lovely Vicente MD PCP - General 04/16/[address] [place] [address] documented as of this encounter
--- OUTSIDE RECORDS SUMMARY | 2022-03-13 10:52 | XMS_ITS | Encounter Summary ---
:1945 Author Organization [facility] [place] [address] Care Team Providers Name Role Phone Lovely Vicente MD Primary Care Provider Encounter Details Date Type Department Care Team Description 12/24/2021 Telephone Public Health at [facility] [place] [address] Social History Tobacco Use Types Packs/Day [...] [facility] ER DR [address] [place], [place] [address] (Wo rk) 05/28/2022 Appointment Cardiology Zulma Dolan MD [facility] [place], [place] [address] (Wo rk) 05/28/2022 Laboratory Appointment Lab 05/28/2022 Office Visit Cardiology Zulma Dolan MD [facility] [place] [address] Liz Poole PA [facility] [place] [address] 06/10/2022 Office Visit Dermatology Laura Scherer MD [facility] [address] [place], [place] [address] (Wo rk) documented as of this encounter Visit Diagnoses Not on filedocumented in this encounter Care Teams Clarifying Plant Operator Relationship Specialty Start Date End Date Lovely Vicente MD PCP - General 04/16/[address] [place] [address] documented as of this encounter
--- OUTSIDE RECORDS SUMMARY | 2022-03-13 10:52 | XMS_ITS | Encounter Summary ---
:1945 Author Organization [facility] Address [facility] [place] [address] Care Team Providers Name Role Phone Lovely Vicente MD Primary Care Provider Reason for Visit Reason Comments Prior Authorization Entresto 24-26mg tablets Encounter Details Date Type Department Care Team Description 02/20/2022 Specialty Pharmacy Pharmacy at [facility] Lamberto Smith Prior Authorization [facility] J (Entresto 24-26mg Drive tablets) [place] [id number] Social History Tobacco Use Types Packs/Day Years [...] Fatima Patient : 1945 Patient Address: [address] [place] [address] [place] [address] (home) Medication Name: ENTRESTO 24 MG-26 MG TABLET Medication ID: [id number] Patient Location: [facility] CARDIOLOGY 4A Patient Location Comment: Medication Strength Frequency Requested: Entresto 24-26mg tablets / One tablet twice daily Qty/Day Supply: New Start: New to Therapy Diagnosis & ICD-10 Code: Chronic systolic heart failure, I50.22 Subscriber Insurance: [employer] [facility] Subscriber Insurance Comment: Fax: Physician: LIZ CARRERA Physician Comment : PA Status: NO PA REQUIRED Insurance mandated Pharmacy: Unknown Fillable at [facility]: Yes Insurance requirements/notes: None Copay: $119.01 (goes to coverage gap/odalys monteiro) Copay assistance: [employer] Copay assistance comment: If cost isn't affordable, then we'll suggest enrollment in the currently open [facility] Heart Failure zoila, which provides up to $1000 in copay assistance. If zoila closes, or doesn't work out, then the patient can attempt enrollment in the board certified orthodontist assistance program, the [employer] Patient Assistance [employer] (NPAF). At which point we'd refer to [facility] for assistance with enrollment. [...] MD [facility] DR [place], [place] [address] (Wo rk) 05/28/2022 Appointment Cardiology Zulma Dolan MD [facility] [address] [place] 136[address] (Wo rk) 05/28/2022 Laboratory Appointment Lab 05/28/2022 Office Visit Cardiology Zulma Dolan MD [facility] [place] [address] Liz Carrera PA [facility] [place] [address] 06/10/2022 Office Visit Dermatology Laura Scherer MD [facility] ER DR TEJA GR-DERMAT [place], [place] [address] (Wo rk) documented as of this encounter Visit Diagnoses Not on filedocumented in this encounter Care Teams Inspector And Sorter Relationship Specialty Start Date End Date Lovely Vicente MD PCP - General 04/16/[address] [place] [address] documented as of this encounter
--- OUTSIDE RECORDS SUMMARY | 2022-03-13 10:52 | XMS_ITS | Encounter Summary ---
:1945 Author Organization [facility] [place] [address] Care Team Providers Name Role Phone Lovely Vicente MD Primary Care Provider Encounter Details Date Type Department Care Team Description 02/24/2022 Notes Only [place] [address] Social History Tobacco Use Types Packs/Day [...] return to the Medication Assistance Program. The [facility] office will follow up with the patient in 5 business days to see if the patient has received the application and if they have any questions. documented in this encounter Plan of Treatment Upcoming Encounters Date Type Specialty Care Team Description 03/26/2022 Office Visit Cardiology Vitaliy Nobles MD [facility] [address] TADEO [place], [place] [address] (Wo rk) 05/28/2022 Appointment Cardiology Zulma Dolan MD [facility] [place], [place] [address] (Wo rk) 05/28/2022 Laboratory Appointment Lab 05/28/2022 Office Visit Cardiology Zulma Dolan MD [facility] [place] [address] Liz Poole PA [facility] [place] [address] 06/10/2022 Office Visit Dermatology Laura Scherer MD [facility] DR TEJA GR-DERMAT [place], [place] [address] (Wo rk) documented as of this encounter Visit Diagnoses Not on filedocumented in this encounter Care Teams Furniture Sales Associate Relationship Specialty Start Date End Date Lovely Vicente MD PCP - General 04/16/15 [facility] [address] [place] [address] documented as of this encounter
--- OUTSIDE RECORDS SUMMARY | 2022-03-13 10:52 | XMS_ITS | Encounter Summary ---
:1945 Author Organization [facility] Address [facility] [place] [address] Care Team Providers Name Role Phone Lovely Vicente MD Primary Care Provider Reason for Visit Auth/Cert Specialty Diagnoses / Procedures Referred By Contact Refer red To Contact Diagnoses ASCVD (arteriosclerotic cardiovascular disease) [I25.10] Viatliy Nobles MD [facility] Procedures PRO PERC TRLUML CORONARY STENT W/ANGIO ONE ART/BRANCH CARDIAC CATHETERIZATION STENT PLACEMENT-SINGLE MAJOR CORONARY ARTERY OR BRANCH [facility] [place] [address] Referral ID Status Reason Start Date Expiration Date Visits Requ ested Visits Authorized [id number] 1 1 Encounter Details Date Type Department Care Team Description 01/30/2022 Hospital Encounter Short Stay Unit at Vitaliy Nobles, CVD (arteriosclerotic cardiovascular disease); Barbara Blue MD 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 [place] [address] [phone] Social History Tobacco Use Types Packs/Day Years [...] and Clopidogrel. Please follow up with your canal superintendent in the next 4-6 weeks. We have [...] RN - 01/30/2022 4:54 PM EDT [facility] Short Stay Unit Discharge Note [...] PCI presenting for staged PCI to [facility]. The pt states he has been [...] PCI presenting for staged PCI to [facility]. 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 I had referred him to cardiac rehab at [facility] last month per HF team. He was waiting until this intervention before starting the program. Reviewed managing angina /use of sl nitroglycerin. Given parameters for home exercise. 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 We discussed short walks several times per day. Will send [facility] his discharge summary from this admission. The patient should be contacted by the Program within 1- 2 weeks from discharge. Brief Op Note - Vitaliy Nobles MD - 01/30/2022 10:19 AM EDT Images from the original note were not included. Former[facility] [place] [id number] CORONARY ANGIOGRAM AND PERCUTANEOUS CORONARY INTERVENTION REPORT Patient: Don Fatima : 1945 MR number: [id number] Date of Service: 01/30/2022 Spray Worker: Vitaliy Nobles MD Fellow: KEYON Elizabeth [...] a long 2.0 x 26 mm HARDEEP Licking TUCKER stent and positioned it at the [...] using a 2.0 x 26 mm HARDEEP Licking TUCKER stent. This completes the revascularization ofall [...] MD [facility] DR CARLYLE [place] 0375 (Wo rk) 05/28/2022 Appointment Cardiology Zulma Dolan MD [facility] INA [place] 0[address] (Wo rk) 05/28/2022 Laboratory Appointment Lab 05/28/2022 Office Visit Cardiology TrudiZulma Knowles MD [facility] [place] [address] Liz Poole PA [facility] [place] [address] 06/10/2022 Office Visit Dermatology Laura Scherer MD [facility] ER DR LEZ[address] RD-DERMAT [place], [place] [address] (Wo rk) Scheduled Orders Name [...] EDT) athologist Signature Neutrophils % 71.8 % [facility] Neutr Abs (ANC) 3.96 1.70 - [facility] 6.10 [facility] x10(3)/[facility] LABORATORY Lymphocytes % 16.3 % [facility] Lymphocytes Abs 0.9 0.9 - 3.2 [facility] x10(3)/[facility] LABORATORY Monocytes % 10.0 % [facility] Monocyte Abs 0.6 0.3 - 0.9 [facility] x10(3)/[facility] LABORATORY Eosinophils % 0.5 % [facility] Eosinophils Abs 0.0 0.0 - 0.4 [facility] x10(3)/[facility] LABORATORY Basophils % 0.5 % [facility] Basophils Abs 0.0 0.0 - 0.1 [facility] x10(3)/[facility] LABORATORY Immature Gran % 0.90 % [facility] Comment: Immature granulocytes(IG's)percentage an d absolute count will include metamyelocytes, myelocytes, and promyelo cytes. Blood smears from CBCs yielding IG's will be scanned manually for concor dance. If this scan disagrees with the automated IG or if promyelocytes are not ed, a manual differential will be performed. Melisa Gran Abs 0.05 (H) 0.00 - 0.04 x10(3)/[facility] LABORATORY Specimen Anatomical Collection Method Collection Time Receive d Time (Source) Location / / Volume Laterality Blood 01/30/2022 2:12 PM 2:37 EDT PM EDT Resulting Agency Comment Spec In Lab Eddi Elizabeth Jr., MD HEMATOLOGY ORDERABLES Performing Organization Address City/State/[place] [address] (ABNORMAL) Hemogram (01/30/2022 2:12 PM EDT) Analysis Performed At Patho logist Time Signature WBC 5.5 4.0 - 9.5 [facility] x10(3)/[facility] LABORATORY RBC 4.30 (L) 4.58 - [place] 5.54 [facility] x10(6)/[facility] LABORATORY Hemoglobin 12.7 (L) 13.7 - [facility] 16.5 g/dL [facility] Hematocrit 39.4 (L) 40.5 - [place] 48.5 % [facility] MCV 91.6 82.9 - [facility] 93.1 [facility] LABORATORY MCH 29.5 27.5 - [place] 32.[address] [facility] MCHC 32.2 32.0 - [place] 35.7 g/dL [facility] Platelets 172 145 - 357 [facility] x10(3)/[facility] LABORATORY RDWSD 54.5 (H) 36.0 - [facility] RYAN 45.0 [facility] LABORATORY RDWCV 16.4 (H) 11.4 - [facility] RYAN 13.8 % [facility] MPV 9.2 7.6 - 12.9 [facility] LABORATORY nRBC % Auto 0.0 % [facility] nRBC Abs Auto 0.000 0.000 - [facility] 0.000 [facility] x10(3)/[facility] LABORATORY Specimen Anatomical Collection Method Collection Time Receive d Time (Source) Location / / Volume Laterality Blood 01/30/2022 2:12 PM 2 2:37 EDT PM EDT Resulting Agency Comment Spec In Lab Eddi Elizabeth Jr., MD HEMATOLOGY ORDERABLES Performing Organization Address City/State/[place] [address] (ABNORMAL) Basic Metabolic Panel (non-fasting) (01/30/2022 2:12 PM EDT) P athologist Signature Glucose Lvl 163 65 - 199 [facility] mg/dL [facility] Comment: Diabetes: >=200 mg/dL plus symp toms BUN 30 (H) 10 - 20 mg/dL [facility] Creatinine 1.47 0.80 - 1.50 mg/dL [facility] LABOR[facility]ORY Sodium 140 135 - 145 mmol/L [facility] Potassium 4.2 3.5 - 5.0 mmol/L [facility] [...] LABORATORY Calcium 9.2 8.5 - 10.5 mg/dL [facility]OR[facility] Estimated GFR 49 (L) >=60 [...] Organization Address City/State/[place] [address] POCT Glucose (01/30/2022 1:41 PM EDT) athologist Signature POC Glucose 148 65 - 199 [facility] mg/dL [facility] Comment: Supplemental ranges: <140 mg/dL before meals <180 mg/dL all other times of the day Specimen Anatomical Collection Method Collection Time Receive d Time (Source) Location / / Volume Laterality Blood 01/30/2022 1:41 PM 1:41 EDT PM EDT Vitaliy Sandra Nobles MD POINT OF CARE TEST ORDERABLE S Performing Organization Address City/State/ZIP Code Phon e Number [address] POCT Glucose (01/30/2022 10:48 AM EDT) P athologist Signature POC Glucose 193 65 - 199 [facility] mg/dL [facility] Comment: Supplemental ranges: <140 mg/dL before meals <180 mg/dL all other times of the day Specimen Anatomical Collection Method Collection Time Receive d Time (Source) Location / / Volume Laterality Blood 01/30/2022 10:48 01/30/2022 AM EDT 10:48 AM EDT Vitaliy Sandra Nobles MD POINT OF CARE TEST ORDERABLE S Performing Organization Address City/State/[place] [address] EKG 12 Lead (01/30/2022 10:33 AM EDT) Component Value Ref Range Test Analysis Performed Pathologis t Method Time At Signature Ventricular rate 64 BPM MUSE SYSTEM Atrial Rate 64 BPM MUSE SYSTEM P-R Interval 162 ms MUSE SYSTEM QRS Duration 94 ms MUSE SYSTEM Q-T Interval 422 ms MUSE SYSTEM QTC Calculated 435 ms MUSE SYSTEM (Bezet) Calculated P [place] 41 degrees MUSE SYSTEM Calculated R [place] -27 degrees MUSE SYSTEM Calculated T [place] 104 degrees MUSE SYSTEM INTERPRETATION Normal sinus rhythm MUSE SYSTEM Anterolateral infarct (cited on or before 09-DEC-2021) Abnormal ECG When compared with ECG of 10-DEC-2021 11:17, No significant change was found Confirmed by Gary Perez ([id number]) on 01/30/2022 5:57:5 2 PM Specimen Anatomical [...] SYSTEM - 01/30/2022 2:09 PM ED T ?[facility] ? Cardiac Cathete rization/Intervention Report ? Patient Name: Don Fatima Veda. ? Procedure Date: 01/30/2022 ? A #: [id number] ? Primary Physician: Vitaliy Nobles ? Case #: [id number] ? File Name: [id number] ? Catheterization Order Number: [id number] ? [facility] ? Final Report [place], [place] ? Patient Name: ? Don E. Stewa rt ? ID#: ?[id number] ? : ?1945 ? Procedure Date: ? [...] patient was ?designated as ASA Class III. [facility] clinical frailty scale is 5: [...] procedure was Urgent. The indication for ?the mobile lab technician visit is stable kn own [...] guiding catheter an d a 3.[address] ??20 Mhz ?using Manual pullback. ??Imagin [...] A premounted 2.00 x 26 mm Hardeep Licking (TUCKER) ? was deployed wi a maximum [...] Wedelivered along 2.0 x 26 mm HARDEEP Licking ? TUCKER stent and p ositioned it [...] dose administered prior to arrival in the mobile lab technician. ?Recommended anti-platelet/anti- thrombotic regimen: ?Continue [...] ?modification of this regimen. C [facility] Interventional Cardiology for ?questions. ?The [...] using a 2.0 x 26 mm HARDEEP Licking TUCKER stent. ?This completes the revasculariz ation [...] Procedure Note Vitaliy Nobles MD - 03/06/2022 [facility] Cardiac Catheterization/Intervention Re port Patient Name: Don Fatima Procedure Date: 01/30/2022 A #: [id number] Primary Physician: Vitaliy Nobles Case #: [id number] File Name: [id number] Catheterization Order Number: [id number] [facility] Final Report [place], [place] Patient Name: Don Fatima ID#: [...] e was Urgent. The indication for the mobile lab technician visit is stable known CAD. [...] 1.5 guiding catheter and a 3.[address] 20 Mhz using Manual pullback. Imaging [...] A premounted 2.00 x 26 mm Hardeep Licking (TUCKER) was deployed with a maximum inflation [...] along 2. 0 x 26 mm HARDEEP Licking TUCKER stent and positioned it at the [...] administered prior t o arrival in the mobile lab technician. Recommended anti-platelet/anti-thrombot ic regimen: Continue [...] require modification of this regimen. Consult [facility] Interventional Cardiology for questions. [...] using a 2.0 x 26 mm HARDEEP Licking TUCKER stent. This completes the revascularization of [...] POC Glucose 212 (H) 65 - 199 [facility] Comment: Supplemental ranges: <140 mg/dL before meals <180 mg/dL all other times of the day Specimen Anatomical Collection Method Collection Time Receive d Time (Source) Location / / Volume Laterality Blood 01/30/2022 9:04 AM 2 9:04 EDT AM EDT Vitaliy Nobles MD POINT OF CARE TEST ORDERABLE S Performing Organization Address City/[facility]/[place] [address] (ABNORMAL) POCT Glucose (01/30/2022 8:10 AM EDT) athologist Signature POC Glucose 224 (H) 65 - 199 [facility] mg/dL 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 ASHD (arteriosclerotic heart disease) Coronary atherosclerosis of unspecified type of vessel, craig or graft ASCVD (arteriosclerotic cardiovascular d isease) Unspecified cardiovascular disease documented in this encounter Admitting Diagnoses Diagnosis CAD (coronary artery disease) Coronary atherosclerosis of unspecified type of vessel, craig or graft documented in this encounter Administered [...] Procedure), Routine niCARdipine (Cardene) (100 mcg/mL) dilution (TRANSPORTATION MUSEUM HELPER) (CANCELED ) 0927 (Given - Provider: Vitaliy [...] (Intra-Procedure) documented in this encounter Care Teams Fittings Finisher Relationship Specialty Start Date End Date Lovely Vicente MD PCP - General 04/16/[address] [place] [address] documented as of this encounter
--- OUTSIDE RECORDS SUMMARY | 2022-03-13 10:52 | XMS_ITS | Encounter Summary ---
:1945 Author Organization [facility] [place] [address] Care Team Providers Name Role Phone Lovely Vicente MD Primary Care Provider Reason for Visit Reason Onset Date Comments Medication Refill 12/12/2021 Torsemide Encounter Details Date Type Department Care Team Description 12/12/2021 Refill Cardiology at [facility] Janneth Padilla, Medication Refill [facility] STEPHANIE (Torsemide) [place] [address] CARDIOLOGY DEPT. [place], [place] [address] (Wo rk) Social History Tobacco [...] Care Team Description 03/26/2022 Office Visit Cardiology Vitaily Nobles MD [facility] DR CARLYLE [place], [place] [address] (Wo rk) 05/28/2022 Appointment Cardiology Zulma Dolan MD [facility] Dr [place], [place] [address] (Wo rk) 05/28/2022 Laboratory Appointment Lab 05/28/2022 Office Visit Cardiology Zulma Dolan MD [facility] [place] [address] Liz Poole PA [facility] [place] [address] 06/10/2022 Office Visit Dermatology Laura Scherer MD [facility] DR TEJA GR-DERMAT [place], [place] 0[address] (Wo rk) documented as of this encounter Visit Diagnoses Diagnosis Chronic systolic heart failure documented in this encounter Care Teams Head End Desizing Machine Operator Relationship Specialty Start Date End Date Lovely Vicente MD PCP - General 04/16/[address] [place] [address] documented as of this encounter
--- OUTSIDE RECORDS SUMMARY | 2022-03-13 10:52 | XMS_ITS | Encounter Summary ---
:1945 Author Organization [facility] Address [facility] [place] [address] Care Team Providers Name Role Phone Lovely Vicente MD Primary Care Provider Reason for Visit Reason Onset Date Comments Medication Refill 03/06/2022 Metoprolol Succinate Encounter Details Date Type Department Care Team Description 03/06/2022 Refill Cardiology at [facility] Liz Poole PA Medication Refill [facility] (Fl toprolol Succinate) [place] [address] Cardiology Dept [phone] [place], [place] [address] (Wo rk) Social History Tobacco [...] MD [facility] DR [place]LYLE [place], [place] [address] (Wo rk) 05/28/2022 Appointment Cardiology Zulma Dolan MD [facility] Dr [place] 0[address] (Wo rk) 05/28/2022 Laboratory Appointment Lab 05/28/2022 Office Visit Cardiology Zulma Dolan MD [facility] [place] [address] Liz Poole PA [facility] [place] [address] 06/10/2022 Office Visit Dermatology Laura Scherer MD [facility] ER DR TEJA GR-DERMAT [place], [place] [address] (Wo rk) documented as of this encounter Visit Diagnoses Diagnosis Chronic systolic heart failure Cardiomyopathy, ischemic Other specified forms of chronic ischemi c heart disease documented in this encounter Care Teams Minute Clerk Relationship Specialty Start Date End Date Lovely Vicente MD PCP - General 04/16/[address] [place] [address] documented as of this encounter
--- OUTSIDE RECORDS SUMMARY | 2022-03-13 10:52 | XMS_ITS | Encounter Summary ---
:1945 Author Organization [facility] [place] [address] Care Team Providers Name Role Phone Lovely Vicente MD Primary Care Provider Encounter Details Date Type Department Care Team Description 02/23/2022 Refill Cardiology at [facility] Liz Poole PA [facility] [place] [address] Cardiology Dept [phone] [place], [place] [address] (Wo rk) Social History Tobacco [...] Oneill RPH Transfer of Services Don Fatima [address] [place] [address] [place] [address] Telephone Information: Work Phone Not on file. The [facility] has received a prescription for Entresto for patient Mr. Don Fatima 76 y.o. (1945). The patient requests the prescription to be filled with [facility]. We spoke to patient to notify of this change and to provide number to reach the new filling pharmacy. A copyof patient's medication profile was offered to the accepting pharmacy. Additional instructions provided to patient about transfer: no The patient has been advised to call the [facility] at [phone] with any questionsor concerns on this referral. Thank you, Oxana Oneill RPH 02/23/22 4:26 PM Patient understands no changes to current drug regimen were made at this time. documented in this encounter Plan of Treatment Upcoming Encounters Date Type Specialty Care Team Description 03/26/2022 Office Visit Cardiology Vitaliy Nobles MD [facility] [address] [place], [place] [address] (Wo rk) 05/28/2022 Appointment Cardiology Zulma Dolan MD [facility] [place], [place] [address] (Wo rk) 05/28/2022 Laboratory Appointment Lab 05/28/2022 Office Visit Cardiology Zulma Dolan MD [facility] [place] [address] Liz Poole PA [facility] [place] [address] 06/10/2022 Office Visit Dermatology Laura Scherer MD [facility] [address] [place], [place] [address] (Wo rk) documented as of this encounter Visit Diagnoses Not on filedocumented in this encounter Care Teams Tin Pot Operator Relationship Specialty Start Date End Date Lovely Vicente MD PCP - General 04/16/15 [facility] [address] [place] [address] documented as of this encounter
--- OUTSIDE RECORDS SUMMARY | 2022-03-13 10:52 | XMS_ITS | Encounter Summary ---
:1945 Author Organization [facility] [place] [address] Care Team Providers Name Role Phone Lovely Vicente MD Primary Care Provider Encounter Details Date Type Department Care Team Description 02/19/2022 Laboratory Appointment Lab 3L [facility] [place] [id number] Social History Tobacco Use Types Packs/Day Years [...] Nobles MD [facility] [address] [place], [place] [address] (Wo rk) 05/28/2022 Appointment Cardiology Zulma Dolan MD [facility] Dr [place] [address] (Wo rk) 05/28/2022 Laboratory Appointment Lab 05/28/2022 Office Visit Cardiology Zulma Dolan MD [facility] [place] [address] Liz Poole PA [facility] [place] [address] 06/10/2022 Office Visit Dermatology Laura Scherer MD [facility] ER DR [address] [place], [place] [address] (Wo rk) documented as [...] (ABNORMAL) Differential, Automated (02/19/2022 8:06 AM EDT) [facility] Method Time Signature Neutrophils % 76.0 % [facility] LABORATORY Neutr Abs (ANC) 5.49 1.70 - [facility] 6.10 [facility] x10(3)/[facility] LABORATORY Lymphocytes % 10.8 % [facility] LABORATORY Lymphocytes Abs 0.8 (L) 0.9 - 3.2 [facility] x10(3)/[facility] LABORATORY Monocytes % 10.2 % [facility] LABORATORY Monocyte Abs 0.7 0.3 - 0.9 [facility] x10(3)/[facility] LABORATORY Eosinophils % 1.2 % [facility] LABORATORY Eosinophils Abs 0.1 0.0 - 0.4 [facility] x10(3)/[facility] LABORATORY Basophils % 0.8 % [facility] LABORATORY Basophils Abs 0.1 0.0 - 0.1 [facility] x10(3)/[facility] LABORATORY Immature Gran % 1.00 % [...] Organization Address City/State/ZIP Code Phon e Number [place] [id number] [facility] (ABNORMAL) Hemogram (02/19/2022 8:06 AM EDT) Analysis Performed At Patho logist Time Signature WBC 7.2 4.0 - 9.5 [facility] x10(3)/[facility] LABORATORY RBC 4.41 (L) 4.58 - [facility] 5.54 [facility] x10(6)/[facility] LABORATORY Hemoglobin 13.2 (L) 13.7 - [facility] 16.5 g/dL [facility] LABORATORY Hematocrit 40.9 40.5 - [facility] % [facility] LAB[facility] MCV 92.7 82.9 - [facility] 93[facility]1 [facility] LABORATORY MCH 29.9 27.5 - [facility] 32.1 pg [facility] LABORATORY MCHC 32.3 32.0 - [facility] 35.7 g/dL [facility] LABORATORY Platelets 191 145 - 357 [facility] x10(3)/[facility] LABORATORY RDWSD 53.6 (H) 36.0 - [facility] 45.0 [facility] LABORATORY RDWCV 15.6 (H) 11.4 - [facility] 13.8 % [facility] LABORATORY MPV 8.7 7.6 - 12.9 [facility] LABORATORY nRBC % Auto 0.0 % [facility] LABORATORY nRBC Abs Auto 0.000 0.000 - [facility] 0.000 [facility] x10(3)/[facility] LABORATORY Specimen Anatomical Collection Method Collection Time Receive d Time (Source) Location / / Volume Laterality Blood 02/19/2022 8:06 AM 2 8:09 EDT AM EDT Resulting Agency Comment Spec In Lab Liz BROWN HEMATOLOGY ORDERABLES Performing Organization Address City/[facility]/ZIP Code Phon e Number [address] (ABNORMAL) pro-Brain Natriuretic Peptide [...] Organization Address City/State/[place] [address] (ABNORMAL) Basic Metabolic Panel (non-fasting) (02/19/2022 8:06 AM EDT) P athologist Signature Glucose Lvl 139 65 - 199 [facility] mg/dL [facility] LABORATORY Comment: Diabetes: >=200 mg/dL plus symp toms BUN 31 (H) 10 - 20 mg/dL [facility] LABORATORY Creatinine 1.53 (H) 0.80 - 1.50 mg/dL [facility] LABORATORY Sodium 142 135 - 145 mmol/L [facility] LABORATORY Potassium 5.4 (H) 3.5 - 5.0 mmol/L [place] [...] 15 mmol/L [facility] LABORATORY Calcium 9.7 8.5 - 10.5 mg/dL [facility] [...] [place] [address] documented in this encounter Visit Diagnoses Diagnosis Chronic systolic heart failure documented in this encounter Care Teams Remote Sensing Specialist Relationship Specialty Start Date End Date Lovely Vicente MD PCP - General 04/16/[address] [place] [address] documented as of this encounter
--- OUTSIDE RECORDS SUMMARY | 2022-03-13 10:53 | XMS_ITS | Encounter Summary ---
:1945 Author Organization [facility] [place] [address] Care Team Providers Name Role Phone Lovely Vicente MD Primary Care Provider Encounter Details Date Type Department Care Team Description 12/07/2021 External Results Administration [facility] [place] [address] Social History Tobacco Use Types Packs/Day [...] Vitaliy Nobles MD [facility] DR [place], [place] [address] (Wo rk) 05/28/2022 Appointment Cardiology Zulma Dolan MD [facility] [address] [place] [address] (Wo rk) 05/28/2022 Laboratory Appointment Lab 05/28/2022 Office Visit Cardiology Zulma Dolan MD [facility] [place] [address] Liz Poole PA [facility] [place] [address] 06/10/2022 Office Visit Dermatology Laura Scherer MD [facility] ER [address] [place], [place] [address] (Wo rk) documented as of [...] on filedocumented in this encounter Care Teams Buffer Chrome Relationship Specialty Start Date End Date Lovely Vicente MD PCP - General 04/16/[address] [place] [address] documented as of this encounter
--- OUTSIDE RECORDS SUMMARY | 2022-03-13 10:53 | XMS_ITS | Encounter Summary ---
:1945 Author Organization [facility] [place] [address] Care Team Providers Name Role Phone Lovely Vicente MD Primary Care Provider Encounter Details Date Type Department Care Team Description 12/07/2021 Ancillary Procedure [facility] Lovely murillo MD [facility] [id number] [place] [address] (Mikayla alcaraz) [phone] Social History Tobacco Use Types Packs/Day Years [...] MD [facility] ER DR [address] [place] [address] (Wo rk) 05/28/2022 Appointment Cardiology Zulma Dolan MD [facility] er [place] [address] (Wo rk) 05/28/2022 Laboratory Appointment Lab 05/28/2022 Office Visit Cardiology Zulma Dolan MD [facility] [place] [address] Liz Poole PA [facility] [place] [address] 06/10/2022 Office Visit Dermatology Laura Scherer MD [facility] ER [address] [facility] [place] [place] [address] (Wo rk) documented as [...] Address City/State/ZIP Code Phon e Number RAD [place], [place] documented in this encounter Visit Diagnoses Not on filedocumented in this encounter Care Teams Customs Agent Relationship Specialty Start Date End Date Lovely Vicente MD PCP - General 04/16/[address] [place] [address] documented as of this encounter
--- OUTSIDE RECORDS SUMMARY | 2022-03-13 10:53 | XMS_ITS | Encounter Summary ---
:1945 Author Organization [facility] [place] [address] Care Team Providers Name Role Phone Lovely Vicente MD Primary Care Provider Encounter Details Date Type Department Care Team Description 12/08/2021 External Results Non-Invasive Cardiology Lab Mar y None [facility] [place] [address] Social History Tobacco Use Types Packs/Day [...] Vitaliy Nobles MD [facility] DR [place], [place] [address] (Wo rk) 05/28/2022 Appointment Cardiology Zulma Dolan MD [facility] [address] [place] [address] (Wo rk) 05/28/2022 Laboratory Appointment Lab 05/28/2022 Office Visit Cardiology Zulma Dolan MD [facility] [place] [address] Liz Poole PA [facility] [place] [address] 06/10/2022 Office Visit Dermatology Laura Scherer MD [facility] ER DR [address] [place], [place] [address] (Wo rk) documented as of [...] on filedocumented in this encounter Care Teams Stereotyper Apprentice Relationship Specialty Start Date End Date Lovely Vicente MD PCP - General 04/16/[address] [place] [address] documented as of this encounter
--- OUTSIDE RECORDS SUMMARY | 2022-03-13 10:53 | XMS_ITS | Encounter Summary ---
:1945 Author Organization [facility] [place] [address] Care Team Providers Name Role Phone Lovely Vicente MD Primary Care Provider Reason for Visit Auth/Cert Specialty Diagnoses / Procedures Referred By Contact Refer red To Contact Diagnoses NSTEMI Procedures emerg ipi Referral ID Status Reason Start Date Expiration Date Visits Requ ested Visits Authorized [id number] 1 1 Encounter Details Date Type Department Care Team Description 12/10/2021 Surgery Scrubber Operator Asa Coulter MD CARDIAC CATHETERIZATION [facility] [place] [address] [place] [address] [phone] (Wo rk) Social History Tobacco Use Types [...] Don Fatima Patient Age: 76 y.o. Language: Mozambican Race: White Ethnicity: Not nor Admit date: [...] Peter PA-C Kelly LaFlamme PA-C Cardiovascular Medicine [phone] Discharge Diagnoses (Hospital Problems) and Secondary Diagnoses [...] 3.75 guiding catheter and a 3.5 Fr [facility] [place] 20 Mhz using Manual pullback. Imaging was successful. Image quality was good. The ostial LCX showed moderate diffuse atherosclerotic plaque with scattered three quadrant calcification. Measurements were performed after pre-dilation. Post Intervention: The stent was well expanded and apposed. Intravascular Ultrasound was performed in the distal LM using a 7 Fr EBU 3.75 guiding catheter and a 3.5 Fr [facility] [place] 20 Mhz using Manual pullback. Imaging was successful. Image quality was good. The distal LM showed moderate diffuse atherosclerotic plaque. Post Intervention: The stent was well expanded and apposed. Indication for Intervention: Coronary intervention was indicated for primary therapy for an acute myocardial infarction. The priority for the procedure was Urgent. The [facility] indication for the procedure was [...] may require modification of this regimen. Consult [facility] Interventional [...] vascular congestion and cardiomegaly. ?? TTE from [facility] 12/08/21 ? Prior Cardiac Studies: TTE [...] prior thyroidectomy in 2012 who presented to [facility] with 1 week progressing breathlessness with [...] 03/2021 with Liz Poole PA-C. ?? At [facility], respiratory distress with hypoxia 86% [...] appointments: During 8am-5pm Wednesday through Wednesday call [phone] to speak with a nurse in the cardiology clinic All other times call [phone] and ask to speak to the debone supervisor station jailer. Return to work: One week Driving: No driving for 48 hours after catheterization. Follow up Appointments: PCP Lovely Vicente MD [phone] to see patient at the end of December for annual check up. Patient to see Dr. Lorenzana at 1120 am at December 19 for a post hospital check up. Physicist [place] Dr. De Oliveira to see you in [facility]. Left a message for office to set a date and time. Please call [phone] Nobles to see the patient for a same day cath in 2-3 weeks from now. Office to call with a date and time. For questions please call [phone] Home oxygen therapy: N/A Arrangements for VNA/home care: none Future Appointments and Orders Future Orders Complete By Expires Basic Metabolic Panel (non-fasting) [LAB15 Custom] 12/19/2021 (Approximate) 12/12/2022 Process Instructions: INCLUDES: Calcium, BUN, Creat, GFR, Glucose, Lytes Scheduling Instructions: Comments: Questions: Referral to Cardiac Rehab [[id number] Custom] As directed Process Instructions: If no [...] appointments: During 8am-5pm Wednesday through Wednesday call [phone] to speak with a nurse in the cardiology clinic All other times call [phone] and ask to speak to the debone supervisor station jailer. Return to work: One week Driving: No driving for 48 hours after catheterization. Follow up Appointments: PCP Lovely Vicente MD [phone] to see patient at the end of December for annual check up. Patient to see Dr. Lorenzana at 1120 am at December 19 for a post hospital check up. Physicist [place] Dr. De Oliveira to see you in [facility]. Left a message for office to set a date and time. Please call [phone] Nobles to see the patient for a same day cath in 2-3 weeks from now. Office to call with a date and time. For questions please call [phone] Home oxygen therapy: N/A Arrangements for VNA/home [...] Tablet Sustained 50 mg Release 24 hr acetaminophen Take 2 tablets by 0 11/02/2017 [...] Progress Note Patient Name: Don Fatima Service: CONTRACTS ADVISOR / PA Responsible Attending: Ifeanyi Truong MD [...] was given Lasix 80mg IV x1 in engineer geophysical laboratory. Tolerated procedure well. Home today at [...] pulmonary vascular congestion and cardiomegaly. TTE from [facility] 12/08/21 Prior Cardiac Studies: TTE 07/28/2019 [...] with MD Janneth Neville PA 12/12/2021 Pager [phone] Associated attestation - Ifeanyi Truong MD - [...] ratio for each meal) Desirae Jett APRN [facility] Endocrinology Diabetes Management Pager [phone] 20 minutes of this 35 minute visit [...] Progress Note Patient Name: Don Fatima Service: CONTRACTS ADVISOR / PA Responsible Attending: Iker Cuevas MD [...] was given Lasix 80mg IV x1 in engineer [facility] laboratory. Tolerated procedure well. Review of Systems: [...] Intake/Output Summary (Last 24 hours) at 12/11/2021 0902 Last data filed at 12/11/2021 0508 Gross [...] pulmonary vascular congestion and cardiomegaly. TTE from [facility] 12/08/21 Prior Cardiac Studies: TTE 07/28/2019 [...] and answered his questions. Iker Cuevas MD [facility] Total time spent on review of records prior to visit, face to face time with patient during visit, documentation, and coordination of care with other clinicians: 25 minutes. . Iker Cuevas MD - 12/10/2021 12:30 PM EDT Images from the original note were not included. Inpatient Cardiology Progress Note Patient Name: Don Fatima Service: CONTRACTS ADVISOR / PA Responsible Attending: Iker Cuevas MD [...] was given Lasix 80mg IV x1 in engineer ge[facility] laboratory. Tolerated procedure well. Review of Systems: [...] pulmonary vascular congestion and cardiomegaly. TTE from [facility] 12/08/21 Prior Cardiac Studies: TTE 07/28/2019 [...] Discussed with MD Migdalia Peter PA-C Pager #[phone] 12/10/2021 Cardiology Attending Note I have seen [...] updated and given pictures. Iker Cuevas MD [facility] Total time spent on review of records prior to visit, face to face time with patient during visit, documentation, and coordination of care with other clinicians: 35 minutes. Iker Cuevas MD - 12/09/2021 7:28 AM EDT Images from the original note were not included. Inpatient Cardiology Progress Note Patient Name: Don Fatima Service: CONTRACTS ADVISOR / PA Responsible Attending: Iker Cuevas MD [...] pulmonary vascular congestion and cardiomegaly. TTE from [facility] 12/08/21 Prior Cardiac Studies: TTE 07/28/2019 [...] by his PCP. Home dosing 5 Mg HYAS/T/// and 7.5 mg /. Daily INR Heparin [...] Discussed with MD Migdalia Peter PA-C Pager #[phone] 12/09/2021 Cardiology Attending Note I have seen and examined the patient. I agree with the findings above. Developed CHF early this am despite getting more iv lasix last evening. Feeling better now. INR > 2. Lungs still wet at base. Echo at [facility] showed EF 35% with mild mod MR slightly lower than last value here. -vit K 2.5 orally to facilitate correction of INR- this will take 12-24 hours to take effect -furosemide 80 mg iv now -postpone right and left heart cath until tomorrow given INR and ADHF -increase statin to achieve LDL < 70 -CPAP tonight Iker Cuevas MD [facility] Total time spent on review [...] prior thyroidectomy in 2012 who presented to [facility] with 1 week progressing breathlessness with [...] visit 03/2021 with Liz Poole PA-C. At [facility], respiratory distress with hypoxia 86% [...] performed by Manny Mcknight MD at [facility] MAIN OR ??? PRO AMPUTATION FOOT, TRANSMETATARSAL Right 08/09/2017 AMPUTATION, TRANSMETATARSAL (WRVU 12.71) performed by Yonathan Smith MD at [facility] MAIN OR ??? PRO CABG, ARTERIAL, SINGLE N/A 07/07/2017 @CABG, USING ARTERIAL GRAFT;SINGLE ARTERIAL GRAFT (WRVU 33.75) performed by Yuan Retana MD at [facility] MAIN OR ??? PRO CABG, ARTERY-VEIN, TWO N/A 07/07/2017 @CABG, TWO VENOUS GRAFTS & ARTERIAL GRAFT (WRVU 7.93) performed by Yuan Retana MD at [facility] MAIN OR ??? PRO COLONOSCOPY, REMV LESN, SNARE 01/16/2014 COLONOSCOPY, POLYPECTOMY, REMOVAL LESION BY SNARE performed by Nohemi Jaimes MD at [facility] ENDOSCOPY ??? PRO DRESSING CHANGE UNDER ANESTHESIA Right 08/11/2017 (MSURG) DRESSING CHANGE (FOR OTHER THAN IVAN) UNDER ANES. (WRVU 0.86) performed by Lamar Smith MD at [facility] MAIN OR ??? PRO ENDOSCOPY W/VIDEO-ASST VEIN HARVEST, CABG Right 07/07/2017 ENDOSCOPIC HARVEST VEIN(S) FOR CABG (WRVU 0.31) performed by Yuan Retana MD at [facility] MAIN OR ??? PRO THYROIDECTOMY 03/28/2013 THYROIDECTOMY, TOTAL OR COMPLETE performed by Manny Mcknight MD at [facility] MAIN OR Significant Family History: Family [...] (H) 65 - 199 mg/dL Labs at [facility] 12/08/2021-troponin I 8004 (UN L <60), [...] ADRs. Trend troponins. Admission EKG. [facility] 12/09; consented. TTE. Telemetry monitoring, daily weights, [...] control; n.p.o. after midnight for [facility] #DVT prophy- heparin infusion #GI prophy- PPI Discussed with MD Morgan Peter PA-C APP2 pager [phone] 12/08/2021 Cardiology Attending Note I have seen [...] is type 1 due to graft or [place] coronary stenosis vs acute injury from CHF. 3. PAF: currrently in NSR. Have replaced warfarin with heparin 4. PAD: stable 5. DM: stable 6. CKD: will monitor and minimize contrast. Pt very appreciative of Dr. Yuan Retana's care in 2018. Will let him know patient is here. Iker Cuevas MD [facility] documented in this encounter Miscellaneous [...] Type: *No Product type* / Secondary Insurance: [email or web address] [place] Prescription Coverage: Yes This plan was [...] cath without complications. Migdalia Parker PA-C Pager #[phone] 12/10/2021 Initial Assessments - Nick Georges RN [...] COVID test: Lab Results Component Value Date [id number] Not Detected 12/08/2021 Past medical History: Past [...] spouse would be surrogate decision maker per [place] surrogate decision making law. (Only good for 180 days) Any patient receiving care at [facility] must abide by [place] law. The hierarchy for surrogate decision making [...] (i) The agent with financial power of research attorney or a conservator appointed in accordance [...] - standard, cane - straight Home Address: [address] [place] [address] [place] [address] Social & Family Supports: All names listed below confirmed with patient as current and correct Extended Emergency Contact Information Primary Emergency Contact: Kisha Fatima Address: [address] [place] [address] [place] [address] [facility] Mobile Relation: Spouse Secondary Emergency Contact: Elba Swenson Address: [place], [place] [id number] [place] [address] Mobile Relation: Child Current Care Provided by: [...] Secondary Insurance: Prescription Coverage: Yes Preferred Pharmacy: [facility] [place] [id number] [facility] - [place], [place] - [address] [place] [id number] [place] Status: Patient is a : unable to assess Primary Care Provider: Lovely Vicente MD [phone] Patient/Caregiver Goals of Treatment: Get out of here Potential Needs for Transition of Care: none Agency Referrals: none patient has used [employer] in the past Transportation: no concerns Transportation Anticipated: family or friend will provide Concerns to be Addressed: patient refuses services, discharge planning Assessment: Patient is admitted to [facility] Service pager [phone] for 76 y.o.??male??with h/o??CAD s/p 3vCABG (THOMPSON-LAD, [...] status on current unit. Nick Georges RN network internship, Office of Care Management Pager: [phone] Brief Op Note - Vitaliy Nobles MD - 12/10/2021 8:31 AM EDT Images from the original note were not included. Ltac, Located [facility] [place] [address] CORONARY ANGIOGRAM AND PERCUTANEOUS CORONARY INTERVENTION REPORT Patient: Don Fatima : 1945 MR number: [id number] Date of Service: 12/10/2021 Crossbar Frame Wirer: Vitaliy Nobles MD Fellow: Rancho Woods MD [...] management and to provide a review of custodial diabetes care. Diabetes History: Don Fatima has had diabetes for 10 years. He has been on insulin for the last several years andis managed by his PCP. Lives in [place], [place] with his . States that he [...] your patient Desirae Jett APRN Endocrinology Pager [phone] 70 minutes of this 80 minute visit [...] to remain on Med/Surg floor, please page [phone] for any further questions or concerns. LANDON [...] for further details. STEPHANIE Rebolledo 12/08/2021 Pager [phone] documented in this encounter Plan of Treatment Upcoming Encounters Date Type Specialty Care Team Description 03/26/2022 Office Visit Cardiology Vitaliy Nobles MD [facility] [address] [place], [place] [address] (Wo rk) 05/28/2022 Appointment Cardiology Zulma Dolan MD [facility] [address] [place], [place] [address] (Wo rk) 05/28/2022 Laboratory Appointment Lab 05/28/2022 Office Visit Cardiology Zulma Dolan MD [facility] [place] [address] Liz Poole PA [facility] [place] [address] 06/10/2022 Office Visit Dermatology Laura Scherer MD [facility] [address] TEJA [place], [place] [address] (Wo rk) Scheduled Referrals Name [...] POC Glucose 215 (H) 65 - 199 [facility] mg/dL [facility] LABORATORY Comment: Supplemental ranges: <140 mg/dL before meals <180 mg/dL all other times of the day Specimen Anatomical Collection Method Collection Time Receive d Time (Source) Location / / Volume Laterality Blood 12/12/2021 7:42 AM 7:42 EDT AM EDT Ifeanyi Truong MD POINT OF CARE TEST ORDERABLE S Performing Organization Address City/State/[place] [address] (ABNORMAL) Differential, Automated (12/12/2021 4:51 AM EDT) athologist [facility] Neutrophils % 75.4 % [facility]OR[facility] Neutr Abs (ANC) 5.95 1.70 - [facility] 6.10 [facility] x10(3)/[facility] LABORATORY Lymphocytes % 12.2 % [facility] Lymphocytes Abs 1.0 0.9 - 3.2 [facility] x10(3)/[facility] LABORATORY Monocytes % 9.5 % [facility] Monocyte Abs 0.8 0.3 - 0.9 [facility] x10(3)/[facility] LABORATORY Eosinophils % 1.8 % [facility] Eosinophils Abs 0.1 0.0 - 0.4 [facility] x10(3)/[facility] LABORATORY Basophils % 0.5 % [facility] Basophils Abs 0.0 0.0 - 0.1 [facility] x10(3)/[facility] LABORATORY Immature Gran % 0.60 % [facility] [...] Organization Address City/State/[place] [address] (ABNORMAL) Hemogram (12/12/2021 4:51 AM EDT) Analysis Performed At Patho logist Time Signature WBC 7.9 4.0 - 9.5 [facility] x10(3)/[facility] LABORATORY RBC 4.19 (L) 4.58 - [facility] 5.54 [facility] x10(6)/[facility] LABORATORY Hemoglobin 12.1 (L) 13.7 - [facility] 16.5 g/dL [facility] LAB[facility]ORY Hematocrit 36.7 (L) 40.5 - [facility] 48.5 % [facility] LABORATORY MCV 87.6 82.9 - [facility] 93.1 [facility] LABORATORY MCH 28.9 27.5 - [facility] 32.1 pg [facility] LABORATORY MCHC 33.0 32.0 - [facility] 35.7 g/dL [facility] LABORATORY Platelets 231 145 - 357 [facility] x10(3)/[facility] LABORATORY RDWSD 47.2 (H) 36.0 - [facility] 45.0 [facility] LABORATORY RDWCV 14.6 (H) 11.4 - [facility] 13.8 % [facility] LABORATORY MPV 9.5 7.6 - 12.9 [facility] LABORATORY nRBC % Auto 0.0 % [facility] nRBC Abs Auto 0.000 0.000 - [facility] 0.000 [facility] x10(3)/[facility] LABORATORY Specimen Anatomical Collection Method Collection Time Receive d Time (Source) Location / / Volume Laterality Blood 12/12/2021 4:51 AM 2 5:06 EDT AM EDT Resulting Agency Comment Spec In Lab Bijan Sun MD HEMATOLOGY ORDERABLES Performing Organization Address City/State/[place] [address] (ABNORMAL) Prothrombin Time (12/12/2021 4:51 AM EDT) P athologist Signature PT 14.9 (H) 9.4 - 12.5 [facility] LABORATORY INR 1.3 [facility] [...] Cuevas MD HEMATOLOGY ORDERABLES Performing Organization Address City/[facility]/[place] [address] (ABNORMAL) BMP w/fasting Glucose (12/12/2021 4:51 AM EDT) P athologist Signature Glucose 152 (H) 65 - 99 [facility] Fasting mg/dL [facility] LABORATORY Comment: ?Fasting* Glucose [...] of Diabetes Mellitus, Position Statement from the [place] [employer]. ??Diabete s Care, Volume 33, [...] Organization Address City/State/ZIP Code Phon [place] [address] Magnesium (12/12/2021 4:51 AM EDT) athologist Signature Magnesium 1.02 0.69 - 1.07 [facility] mmol/L [facility] LABORATORY Specimen Anatomical Collection Method Collection Time Receive d Time (Source) Location / / Volume Laterality Blood 12/12/2021 4:51 AM 2 5:06 EDT AM EDT Resulting Agency Comment Spec In Lab Iker Cuevas MD CHEMISTRY ORDERABLES Performing Organization Address City/State/ZIP Code Phon e Number [address] POCT Glucose (12/12/2021 3:43 AM EDT) athologist Signature POC Glucose 138 65 - 199 [facility] mg/dL [facility] LABORATORY Comment: Supplemental ranges: <140 mg/dL before meals <180 mg/dL all other times of the day Specimen Anatomical Collection Method Collection Time Receive d Time (Source) Location / / Volume Laterality Blood 12/12/2021 3:43 AM 2 3:43 EDT AM EDT Iker Cuevas MD POINT OF CARE TEST ORDERABLE S Performing Organization Address City/State/ZIP Code Phon e Number [address] POCT Glucose (12/11/2021 11:44 PM EDT) athologist Signature POC Glucose 124 65 - 199 [facility] mg/dL [facility] LABORATORY Comment: Supplemental ranges: <140 mg/dL before meals <180 mg/dL all other times of the day Specimen Anatomical Collection Method Collection Time Receive d Time (Source) Location / / Volume Laterality Blood 12/11/2021 11:44 12/11/2021 PM EDT 11:44 PM EDT Iker Cuevas MD POINT OF CARE TEST ORDERABLE S Performing Organization Address City/State/ZIP [place] [address] (ABNORMAL) POCT Glucose (12/11/2021 8:12 PM EDT) athologist Signature POC Glucose 200 (H) 65 - 199 [facility] mg/dL [facility] LABORATORY Comment: Supplemental ranges: <140 mg/dL before meals <180 mg/dL all other times of the day Specimen Anatomical Collection Method Collection Time Receive d Time (Source) Location / / Volume Laterality Blood 12/11/2021 8:12 PM 2 8:12 EDT PM EDT Iker Cuevas MD POINT OF CARE TEST ORDERABLE S Performing Organization Address City/State/ZIP [place] [address] (ABNORMAL) POCT Glucose (12/11/2021 6:50 PM EDT) athologist Signature POC Glucose 245 (H) 65 - 199 [facility] mg/dL [facility] LAB[facility]ORY Comment: Supplemental ranges: <140 mg/dL before meals <180 mg/dL all other times of the day Specimen Anatomical Collection Method Collection Time Receive d Time (Source) Location / / Volume Laterality Blood 12/11/2021 6:50 PM 2 6:50 EDT PM EDT Iker Cuevas MD POINT OF CARE TEST ORDERABLE S Performing Organization Address City/State/ZIP [place] [address] (ABNORMAL) POCT Glucose (12/11/2021 4:00 PM EDT) athologist Signature POC Glucose 383 (H) 65 - 199 [place] [facility] mg/dL [facility] LABORATORY Comment: Supplemental ranges: <140 mg/dL before meals <180 mg/dL all other times of the day Specimen Anatomical Collection Method Collection Time Receive d Time (Source) Location / / Volume Laterality Blood 12/11/2021 4:00 PM 2 4:00 EDT PM EDT Iker Cuevas MD POINT OF CARE TEST ORDERABLE S Performing Organization Address City/State/ZIP [place] [address] (ABNORMAL) POCT Glucose (12/11/2021 12:01 PM EDT) P athologist Signature POC Glucose 342 (H) 65 - 199 [place] mg/dL [facility] LABORATORY Comment: Supplemental ranges: <140 mg/dL before meals <180 mg/dL all other times of the day Specimen Anatomical Collection Method Collection Time Receive d Time (Source) Location / / Volume Laterality Blood 12/11/2021 12:01 12/11/2021 PM EDT 12:01 PM EDT Iker Cuevas MD POINT OF CARE TEST ORDERABLE S Performing Organization Address City/State/[place] [address] COVID-19 PCR (12/11/2021 10:13 AM EDT) Patholo gist Method Time Signature SARS-CoV-2 Not Detected Not Detected [facility] RNA [facility] LABORATORY Comment: This result should be interpreted [...] diagnosis of COVID-19 is performed using the Thing5 Alinity m RONNA S-CoV-2 Assay as authorized by the FDA Emergency Use Authorization (EUA). This EUA assay is intended for In-vitro Diagnostic (IVD) use with respiratory sp ecimens such as nasopharyngeal swabs collected from individuals during the ac terrence phase of infection. This assay is performed based on the instructions for use provided by [facility] and additional guidance provided by CDC [...] is infected. As required or requested by [facility], positive specimens may be sent for additional [...] clinical management guidance information are available at [facility] CDC Coronavirus Disease 2019 (COVID-19) webpage under Information fo r Healthcare Professionals (https://www.cdc.gov/coronavirus/2019-nc ov/hcp/index.html) Additional information about this and ot her EUA tests can be found in provider and patient fact sheets at the following FDA website: https://www.fda.gov/medical-devices/yghhyvzmwlf-xjbkndg-5546-xqaqy-28-airronias- oal-byhjqzygsbpgwl-qrpuuqy-devices/tfjpu-nbonjznwfwi-hqse SARS-Cov-2 RNA Source CONTRACTS ADVISOR Swab [facility] LAB[facility]ORY Specimen (Source) Anatomical Collection Method Collection Time Re ceived Time Location / / Volume Laterality Nasopharyngeal Swab 12/11/2021 10:13 0503/2022 AM EDT 11:16 AM EDT Comment: Symptoms->Surveillance Resulting Agency Comment Spec In Lab Iker Cuevas MD MICROBIOLOGY - GENERAL ORDER [place] Performing Organization Address City/State/[place] [address] POCT Glucose (12/11/2021 7:34 AM EDT) P athologist Signature POC Glucose 198 65 - 199 [facility] mg/dL [facility] LABORATORY Comment: Supplemental ranges: <140 mg/dL before meals <180 mg/dL all other times of the day Specimen Anatomical Collection Method Collection Time Receive d Time (Source) Location / / Volume Laterality Blood 12/11/2021 7:34 AM 2 7:34 EDT AM EDT Iker Cuevas MD POINT OF CARE TEST ORDERABLE S Performing Organization Address City/State/ZIP [place] [address] (ABNORMAL) POCT Glucose (12/11/2021 5:07 AM EDT) athologist Signature POC Glucose 208 (H) 65 - 199 [facility] LABORATORY Comment: Supplemental ranges: <140 mg/dL before meals <180 mg/dL all other times of the day Specimen Anatomical Collection Method Collection Time Receive d Time (Source) Location / / Volume Laterality Blood 12/11/2021 5:07 AM 2 5:07 EDT AM EDT Iker Cuevas MD POINT OF CARE TEST ORDERABLE S Performing Organization Address City/[facility]/ZIP Code [place] [address] (ABNORMAL) Differential, Automated (12/11/2021 4:28 AM EDT) [facility] gist Method Time Signature Neutrophils % 79.6 % [facility] LABORATORY Neutr Abs (ANC) 7.01 (H) 1.70 - [facility] 6.10 [facility] x10(3)/[facility] L LABORATORY Lymphocytes % 9.1 % [facility] LABORATORY Lymphocytes Abs 0.8 (L) 0.9 - 3.2 [facility] x10(3)/[facility] LABORATORY Monocytes % 9.2 % [facility] LABORAT[facility] Monocyte Abs 0.8 0.3 - 0.9 [facility] x10(3)/[facility] LABORATORY Eosinophils % 1.3 % [facility] Eosinophils Abs 0.1 0.0 - 0.4 [facility] x10(3)/[facility] LABORATORY Basophils % 0.5 % [facility] LAB[facility] Basophils Abs 0.0 0.0 - 0.1 [facility] x10(3)/[facility] LABORATORY Immature Gran % 0.30 % [facility] LABORATORY Comment: Immature granulocytes(IG's)percentage an d absolute count will include metamyelocytes, myelocytes, and promyelo cytes. Blood smears from CBCs yielding IG's will be scanned manually for concor dance. If this scan disagrees with the automated IG or if promyelocytes are not ed, a manual differential will be performed. Melisa Gran Abs 0.03 0.00 - 0.04 x10(3)/[facility] LABORATORY Specimen Anatomical Collection Method Collection Time Receive d Time (Source) Location / / Volume Laterality Blood 12/11/2021 4:28 AM 4:37 EDT AM EDT Resulting Agency Comment Spec In Lab Bijan Sun MD HEMATOLOGY ORDERABLES Performing Organization Address City/State/[place] [address] (ABNORMAL) Hemogram (12/11/2021 4:28 AM EDT) Analysis Performed At Patho logist Time Signature WBC 8.8 4.0 - 9.5 [facility] x10(3)/[facility] LABORATORY RBC 4.15 (L) 4.58 - [facility] 5.54 [facility] x10(6)/[facility] LABORATORY Hemoglobin 11.9 (L) 13.7 - [facility] 16.5 g/dL [facility] LABORATORY Hematocrit 36.9 (L) 40.5 - [facility] 48.5 % [facility] LABORATORY MCV 88.9 82.9 - [facility] 93.1 fL [facility] LABORATORY MCH 28.7 27.5 - [facility] 32.1 pg [facility] LABORATORY MCHC 32.2 32.0 - [facility] 35.7 g/dL [facility] LABORATORY Platelets 211 145 - 357 [facility] x10(3)/[facility] LABORATORY RDWSD 48.3 (H) 36.0 - [facility] 45.0 [facility] LABORATORY RDWCV 14.8 (H) 11.4 - [facility] 13.8 % [facility] LABORATORY MPV 9.6 7.6 - 12.9 [facility] nRBC % Auto 0.0 % [facility] LABORATORY nRBC Abs Auto 0.000 0.000 - [place] [facility] 0.000 [facility] x10(3)/[facility] LABORATORY Specimen Anatomical Collection Method Collection Time Receive d Time (Source) Location / / Volume Laterality Blood 12/11/2021 4:28 AM 2 4:37 EDT AM EDT Resulting Agency Comment Spec In Lab Bijan Sun MD HEMATOLOGY ORDERABLES Performing Organization Address City/[facility]/ZIP Code Phon e Number [address] (ABNORMAL) Prothrombin Time (12/11/2021 4:28 AM EDT) P athologist Signature PT 17.7 (H) 9.4 - 12.5 [facility] LABORATORY INR 1.6 [facility] [...] Cuevas MD HEMATOLOGY ORDERABLES Performing Organization Address City/[facility]/ZIP Code Phon e Number [address] (ABNORMAL) BMP w/fasting Glucose (12/11/2021 4:28 AM EDT) P athologist Signature Glucose 207 (H) 65 - 99 [facility] Fasting mg/dL [facility] LABORATORY Comment: ?Fasting* Glucose [...] of Diabetes Mellitus, Position Statement from the [place] [employer]. ??Diabete s Care, Volume 33, Supplement 1, Jul 2009 BUN 49 (H) 10 - 20 mg/dL [facility] LABORATORY Creatinine 1.43 0.80 - 1.50 mg/dL [facility] LABORATORY [...] Address City/State/ZIP Code Phon e Number [address] Magnesium (12/11/2021 4:28 AM EDT) athologist Signature Magnesium 1.04 0.69 - 1.07 [facility] mmol/L [facility] LABORATORY Specimen Anatomical Collection Method Collection Time Receive d Time (Source) Location / / Volume Laterality Blood 12/11/2021 4:28 AM 2 4:37 EDT AM EDT Resulting Agency Comment Spec In Lab Iker Cuevas MD CHEMISTRY ORDERABLES Performing Organization Address City/[facility]/ZIP Code [place] [address] POCT Glucose (12/11/2021 3:58 AM EDT) athologist Signature POC Glucose 189 65 - 199 [facility] mg/dL [facility] LABORATORY Comment: Supplemental ranges: <140 mg/dL before meals <180 mg/dL all other times of the day Specimen Anatomical Collection Method Collection Time Receive d Time (Source) Location / / Volume Laterality Blood 12/11/2021 3:58 AM 2 3:58 EDT AM EDT Iker Cuevas MD POINT OF CARE TEST ORDERABLE S Performing Organization Address City/State/ZIP Code Phon e Number [address] (ABNORMAL) POCT Glucose (12/10/2021 11:45 PM EDT) athologist Signature POC Glucose 205 (H) 65 - 199 [facility] LABORATORY Comment: Supplemental ranges: <140 mg/dL before meals <180 mg/dL all other times of the day Specimen Anatomical Collection Method Collection Time Receive d Time (Source) Location / / Volume Laterality Blood 12/10/2021 11:45 12/10/2021 PM EDT 11:45 PM EDT Iker Cuevas MD POINT OF CARE TEST ORDERABLE S Performing Organization Address City/[facility]/ZIP [place] [address] (ABNORMAL) POCT Glucose (12/10/2021 7:54 PM EDT) athologist Signature POC Glucose 225 (H) 65 - 199 [facility]/dL [facility] LABORATORY Comment: Supplemental ranges: <140 mg/dL before meals <180 mg/dL all other times of the day Specimen Anatomical Collection Method Collection Time Receive d Time (Source) Location / / Volume Laterality Blood 12/10/2021 7:54 PM 2 7:54 EDT PM EDT Iker Cuevas MD POINT OF CARE TEST ORDERABLE S Performing Organization Address City/[facility]/ZIP Code [place] [address] Potassium (12/10/2021 7:46 PM EDT) athologist Signature Potassium 4.2 3.5 - 5.0 [facility] mmol/L [facility] LABORATORY Comment: Please note: [...] Cuevas MD CHEMISTRY ORDERABLES Performing Organization Address City/[facility]/ZIP [place] [address] (ABNORMAL) Basic Metabolic Panel (non-fasting) (12/10/2021 6:12 PM EDT) athologist Signature Glucose Lvl 246 (H) 65 - 199 [facility] mg/dL [facility] LABORATORY Comment: Diabetes: >=200 mg/dL plus symp toms BUN 50 (H) 10 - 20 mg/dL [facility] LABORATORY Creatinine 1.39 0.80 - 1.50 mg/dL [facility] LABORATORY [...] Address City/State/ZIP [place] [address] POCT Glucose (12/10/2021 4:59 PM EDT) P athologist Signature POC Glucose 158 65 - 199 [facility] mg/dL [facility] LABORATORY Comment: Supplemental ranges: <140 mg/dL before meals <180 mg/dL all other times of the day Specimen Anatomical Collection Method Collection Time Receive d Time (Source) Location / / Volume Laterality Blood 12/10/2021 4:59 PM 2 4:59 EDT PM EDT Iker Cuevas MD POINT OF CARE TEST ORDERABLE S Performing Organization Address City/[facility]/ZIP Code [place] [address] (ABNORMAL) POCT Glucose (12/10/2021 12:43 PM EDT) P athologist Signature POC Glucose 241 (H) 65 - 199 [facility] mg/dL [facility] LABORATORY Comment: Supplemental ranges: <140 mg/dL before meals <180 mg/dL all other times of the day Specimen Anatomical Collection Method Collection Time Receive d Time (Source) Location / / Volume Laterality Blood 12/10/2021 12:43 12/10/2021 PM EDT 12:43 PM EDT Iker Cuevas MD POINT OF CARE TEST ORDERABLE S Performing Organization Address City/[facility]/ZIP Code Phon e Number [address] EKG 12 Lead (12/10/2021 11:17 AM EDT) Component Value Ref Range Test Analysis Performed Pathologis t Method Time At Signature Ventricular rate 62 BPM MUSE SYSTEM Atrial Rate 62 BPM MUSE SYSTEM P-R Interval 142 ms MUSE SYSTEM QRS Duration 100 ms MUSE SYSTEM Q-T Interval 434 ms MUSE SYSTEM QTC Calculated 440 ms MUSE SYSTEM (Bezet) Calculated P Thayer 34 degrees MUSE SYSTEM Calculated R Thayer -39 degrees MUSE SYSTEM Calculated T Thayer 92 degrees MUSE SYSTEM INTERPRETATION Normal sinus [...] ? Procedure Date: 12/10/2021 ? A #: [id number] ? Primary Physician: Vitaliy Nobles ? Case #: [id number] ? File Name: [id number] ? Catheterization Order Number: [id number] ? [facility] ? Final Report [place], [place] ? Patient Name: ? Don E. Stewa rt ? ID#: ?[id number] ? : ?1945 ? Procedure Date: ? [...] ?designated as ASA Class III. Th e [facility] clinical frailty scale is 5: Mildly [...] procedure was Urgent. The indication for ?the engineer geophysical laboratory visit is ACS great er than [...] ?3.75 guiding catheter and a 3.5 Fr [facility] 20 Mhz using Manual ?pullback. ??Imaging was [...] ?3.75 guiding catheter and a 3.5 Fr [facility] 20 Mhz using Manual ?pullback. ??Imaging was [...] require ?modification of this regimen. C onsult [facility] Interventional [...] Don Fatima Procedure Date: 12/10/2021 A #: [id number] Primary Physician: Vitaliy Nobles Case #: [id number] File Name: [id number] Catheterization Order Number: [id number] [facility] Final Report [place], [place] Patient Name: Don Fatima ID#: [...] e was Urgent. The indication for the engineer geophysical laboratory visit is ACS greater than 24 [...] and a 3.5 Fr [facility] [place] 20 Mhz using Manual pullback. Imaging was [...] and a 3.5 Fr [facility] [place] 20 Mhz using Manual pullback. Imaging was [...] POC Glucose 262 (H) 65 - 199 [facility]/dL [facility] LABORATORY Comment: Supplemental ranges: <140 mg/dL before meals <180 mg/dL all other times of the day Specimen Anatomical Collection Method Collection Time Receive d Time (Source) Location / / Volume Laterality Blood 12/10/2021 10:30 12/10/2021 AM EDT 10:30 AM EDT Iker Cuevas MD POINT OF CARE TEST ORDERABLE S Performing Organization Address City/State/ZIP [place] [address] (ABNORMAL) POCT Glucose (12/10/2021 9:48 AM EDT) athologist Signature POC Glucose 279 (H) 65 - 199 [facility] mg/dL [facility] LABORATORY Comment: Supplemental ranges: <140 mg/dL before meals <180 mg/dL all other times of the day Specimen Anatomical Collection Method Collection Time Receive d Time (Source) Location / / Volume Laterality Blood 12/10/2021 9:48 AM 2 9:48 EDT AM EDT Iker Cuevas MD POINT OF CARE TEST ORDERABLE S Performing Organization Address City/[facility]/ZIP Code [place] [address] (ABNORMAL) POCT Glucose (12/10/2021 9:07 AM EDT) athologist Signature POC Glucose 268 (H) 65 - 199 [facility] mg/dL [facility] LABORATORY Comment: Supplemental ranges: <140 mg/dL before meals <180 mg/dL all other times of the day Specimen Anatomical Collection Method Collection Time Receive d Time (Source) Location / / Volume Laterality Blood 12/10/2021 9:07 AM 2 9:07 EDT AM EDT Iker Cuevas MD POINT OF CARE TEST ORDERABLE S Performing Organization Address City/State/ZIP [place] [address] (ABNORMAL) Point of Care Blood Gas Historical (12/10/2021 9:04 AM EDT) Patholo gist Method Time Signature POC pH 7.40 7.35 - [facility] 7.45 [facility] LABORATORY POC PCO2 40 35 - 45 [facility] mmHg [facility] LABORATORY POC PO2 63 (L) 85 - 104 [facility] LABORATORY POC Base Excess 0.0 -3.0 - 3.0 [facility] mmol/L [facility] LABORATORY POC HCO3 24.8 20.0 - [facility] 26.0 [facility] Sodium 143 135 - 145 [facility] mmol/L [facility] LABORATORY POC Potassium 3.7 3.5 - 5.0 [facility] mmol/L [facility] POC Ionized Ca 1.07 (L) 1.15 - [facility] 1.33 [facility] mmolL [facility] LABORATORY POC Hematocrit 30.0 (L) 40.0 - [facility] 51.0 % [facility] LABORATORY POC Calc Hgb 10.2 (L) 13.7 - [facility] 17.5 g/dL [facility] LABORATORY Comment: The calculation of hemoglobin f rom hematocrit assumes a normal MCHC. POC Bgas Loc CC LAB [facility] LABORATORY Specimen Anatomical Collection Method Collection Time Receive d Time (Source) Location / / Volume Laterality Blood 12/10/2021 9:04 AM 2 EDT 12:00 PM EDT Ifeanyi Truong MD CHEMISTRY ORDERABLES Performing Organization Address City/State/[place] [address] (ABNORMAL) POCT Glucose (12/10/2021 7:19 AM EDT) P athologist Signature POC Glucose 274 (H) 65 - 199 [facility] mg/dL [facility] LABORATORY Comment: Supplemental ranges: <140 mg/dL before meals <180 mg/dL all other times of the day Specimen Anatomical Collection Method Collection Time Receive d Time (Source) Location / / Volume Laterality Blood 12/10/2021 7:19 AM 2 7:19 EDT AM EDT Iker Cuevas MD POINT OF CARE TEST ORDERABLE S Performing Organization Address City/[facility]/[place] [address] Heparin (unfractionated) Level (12/10/2021 4:25 AM EDT) P athologist Signature Heparin UFH 0.69 IU/mL [facility] LABORATORY Comment: Heparin (anti-Xa) levels should [...] Cuevas MD HEMATOLOGY ORDERABLES Performing Organization Address City/[facility]/ZIP Code Phon e Number [address] (ABNORMAL) Differential, Automated (12/10/2021 4:25 AM EDT) Patholo gist Method Time Signature Neutrophils % 79.8 % [facility] LABORATORY Neutr Abs (ANC) 7.47 (H) 1.70 - [facility] 6.10 [facility] x10(3)/[facility] LABORATORY Lymphocytes % 10.6 % [facility] LABORATORY Lymphocytes Abs 1.0 0.9 - 3.2 [facility] x10(3)/[facility] LABORATORY Monocytes % 8.4 % [facility] LABORATORY Monocyte Abs 0.8 0.3 - 0.9 [facility] x10(3)/[facility] LABORATORY Eosinophils % 0.6 % [facility] LABORATORY Eosinophils Abs 0.1 0.0 - 0.4 [facility] x10(3)/[facility] LABORATORY Basophils % 0.2 % [facility] LABORATORY Basophils Abs 0.0 0.0 - 0.1 [facility] x10(3)/[facility] LABORATORY Immature Gran % 0.40 % [facility] LABORATORY Comment: Immature granulocytes(IG's)percentage an d absolute count will include metamyelocytes, myelocytes, and promyelo cytes. Blood smears from CBCs yielding IG's will be scanned manually for concor dance. If this scan disagrees with the automated IG or if promyelocytes are not ed, a manual differential will be performed. Melisa Gran Abs 0.04 0.00 - 0.04 x10(3)/[facility] LABORATORY Specimen Anatomical Collection Method Collection Time Receive d Time (Source) Location / / Volume Laterality Blood 12/10/2021 4:25 AM 4:34 EDT AM EDT Resulting Agency Comment Spec In Lab Morgan BROWN HEMATOLOGY ORDERABLES Performing Organization Address City/State/[place] [address] (ABNORMAL) Hemogram (12/10/2021 4:25 AM EDT) Analysis Performed At Patho logist Time Signature WBC 9.4 4.0 - 9.5 [facility] x10(3)/[facility] LABORATORY RBC 3.81 (L) 4.58 - [facility] 5.54 [facility] x10(6)/[facility] LABORATORY Hemoglobin 11.1 (L) 13.7 - [facility] 16.5 g/dL [facility] LABORATORY Hematocrit 34.0 (L) 40.5 - [facility] 48.5 % [facility] LABORATORY MCV 89.2 82.9 - [facility] 93.1 fL [facility] LABORATORY MCH 29.1 27.5 - [facility] 32.1 pg [facility] LABORATORY MCHC 32.6 32.0 - [facility] 35.7 g/dL [facility] LABORATORY Platelets 183 145 - 357 [facility] x10(3)/[facility] LABORATORY RDWSD 49.9 (H) 36.0 - [facility] 45.0 [facility] LABORATORY RDWCV 15.2 (H) 11.4 - [facility] 13.8 % [facility] LABORATORY MPV 9.8 7.6 - 12.9 [facility] LABORATORY nRBC % Auto 0.0 % [facility] LABORATORY nRBC Abs Auto 0.000 0.000 - [facility] 0.000 [facility] x10(3)/[facility] LABORATORY Specimen Anatomical Collection Method Collection Time Receive d Time (Source) Location / / Volume Laterality Blood 12/10/2021 4:25 AM 2 4:34 EDT AM EDT Resulting Agency Comment Spec In Lab Morgan BROWN HEMATOLOGY ORDERABLES Performing Organization Address City/[facility]/ZIP [place] [address] (ABNORMAL) Prothrombin Time (12/10/2021 4:25 AM EDT) P athologist Signature PT 20.0 (H) 9.4 - 12.5 [facility] LABORATORY INR 1.7 [facility] [...] Cuevas MD HEMATOLOGY ORDERABLES Performing Organization Address City/[facility]/ZIP [place] [address] (ABNORMAL) BMP w/fasting Glucose (12/10/2021 4:25 AM EDT) athologist Signature Glucose 210 (H) 65 - 99 [facility] Fasting mg/dL [facility] LABORATORY Comment: ?Fasting* Glucose [...] of Diabetes Mellitus, Position Statement from the [place] [employer]. ??Diabete s Care, Volume 33, Supplement 1, Jul 2009 BUN 54 (H) 10 - 20 mg/dL [facility] LABORATORY Creatinine 1.52 (H) 0.80 - 1.50 mg/dL [facility] [...] Cuevas MD CHEMISTRY ORDERABLES Performing Organization Address City/[facility]/ZIP [place] [address] Magnesium (12/10/2021 4:25 AM EDT) P athologist Signature Magnesium 0.95 0.69 - 1.07 [facility]/L [facility] LABORATORY Specimen Anatomical Collection Method Collection Time Receive d Time (Source) Location / / Volume Laterality Blood 12/10/2021 4:25 AM 2 4:34 EDT AM EDT Resulting Agency Comment Spec In Lab Iker Cuevas MD CHEMISTRY ORDERABLES Performing Organization Address City/[facility]/ZIP [place] [address] POCT Glucose (12/10/2021 1:58 AM EDT) P athologist Signature POC Glucose 164 65 - 199 [facility]/dL [facility] LABORATORY Comment: Supplemental ranges: <140 mg/dL before meals <180 mg/dL all other times of the day Specimen Anatomical Collection Method Collection Time Receive d Time (Source) Location / / Volume Laterality Blood 12/10/2021 1:58 AM 2 1:58 EDT AM EDT Iker Cuevas MD POINT OF CARE TEST ORDERABLE S Performing Organization Address City/[facility]/ZIP Code Phon [place] [address] (ABNORMAL) POCT Glucose (12/09/2021 9:02 PM EDT) athologist Signature POC Glucose 313 (H) 65 - 199 [facility] mg/dL [facility] LABORATORY Comment: Supplemental ranges: <140 mg/dL before meals <180 mg/dL all other times of the day Specimen Anatomical Collection Method Collection Time Receive d Time (Source) Location / / Volume Laterality Blood 12/09/2021 9:02 PM 2 9:02 EDT PM EDT Iker Cuevas MD POINT OF CARE TEST ORDERABLE S Performing Organization Address City/State/ZIP [place] [address] Heparin (unfractionated) Level (12/09/2021 7:30 PM EDT) athologist Signature Heparin UFH 0.48 IU/mL [facility] LABORATORY Comment: Heparin (anti-Xa) levels should [...] Address City/State/ZIP [place] [address] (ABNORMAL) Basic Metabolic Panel (non-fasting) (12/09/2021 7:30 PM EDT) P athologist Signature Glucose Lvl 372 (H) 65 - 199 [facility] mg/dL [facility] LABORATORY Comment: Diabetes: >=200 mg/dL plus symp toms BUN 56 (H) 10 - 20 mg/dL [facility] LABORATORY Creatinine 1.75 (H) 0.80 - 1.50 mg/dL [facility] [...] Cuevas MD CHEMISTRY ORDERABLES Performing Organization Address City/[facility]/ZIP [place] [address] [facility] (ABNORMAL) POCT Glucose (12/09/2021 6:34 PM EDT) athologist Signature POC Glucose 408 (H) 65 - 199 [place] mg/dL [facility] LABORATORY Comment: Supplemental ranges: <140 mg/dL before meals <180 mg/dL all other times of the day Specimen Anatomical Collection Method Collection Time Receive d Time (Source) Location / / Volume Laterality Blood 12/09/2021 6:34 PM 2 6:34 EDT PM EDT Iker Cuevas MD POINT OF CARE TEST ORDERABLE S Performing Organization Address City/[facility]/ZIP [place] [address] (ABNORMAL) POCT Glucose (12/09/2021 6:32 PM EDT) athologist Signature POC Glucose 356 (H) 65 - 199 [place] mg/dL [facility] LABORATORY Comment: Supplemental ranges: <140 mg/dL before meals <180 mg/dL all other times of the day Specimen Anatomical Collection Method Collection Time Receive d Time (Source) Location / / Volume Laterality Blood 12/09/2021 6:32 PM 2 6:32 EDT PM EDT Iker Cuevas MD POINT OF CARE TEST ORDERABLE S Performing Organization Address City/[facility]/ZIP [place] [address] (ABNORMAL) POCT Glucose (12/09/2021 4:19 PM EDT) athologist Signature POC Glucose 347 (H) 65 - 199 [place] mg/dL [facility] LABORATORY Comment: Supplemental ranges: <140 mg/dL before meals <180 mg/dL all other times of the day Specimen Anatomical Collection Method Collection Time Receive d Time (Source) Location / / Volume Laterality Blood 12/09/2021 4:19 PM 2 4:19 EDT PM EDT Iker Cuevas MD POINT OF CARE TEST ORDERABLE S Performing Organization Address City/State/[place] [address] Heparin (unfractionated) Level (12/09/2021 1:29 PM EDT) athologist Signature Heparin UFH 0.42 IU/mL [facility] LABORATORY Comment: Heparin (anti-Xa) levels should [...] Cuevas MD HEMATOLOGY ORDERABLES Performing Organization Address City/[facility]/[place] [address] (ABNORMAL) POCT Glucose (12/09/2021 12:02 PM EDT) athologist Signature POC Glucose 235 (H) 65 - 199 [facility] mg/dL [facility] LABORATORY Comment: Supplemental ranges: <140 mg/dL before meals <180 mg/dL all other times of the day Specimen Anatomical Collection Method Collection Time Receive d Time (Source) Location / / Volume Laterality Blood 12/09/2021 12:02 12/09/2021 PM EDT 12:02 PM EDT Iker Cuevas MD POINT OF CARE TEST ORDERABLE S Performing Organization Address City/State/[place] [address] (ABNORMAL) POCT Glucose (12/09/2021 9:44 AM EDT) P athologist Signature POC Glucose 214 (H) 65 - 199 [facility] LABORATORY Comment: [...] City/State/ZIP Code Phon e Number [place] [phone] [facility] [address] EKG 12 Lead (12/09/2021 7:57 AM EDT) Component Value Ref Range Test Analysis Performed Pathologis t Method Time At Signature Ventricular rate 101 BPM MUSE SYSTEM Atrial Rate 101 BPM MUSE SYSTEM P-R Interval 150 ms MUSE SYSTEM QRS Duration 112 ms MUSE SYSTEM Q-T Interval 364 ms MUSE SYSTEM QTC Calculated 471 ms MUSE SYSTEM (Bezet) Calculated P Thayer 59 degrees MUSE SYSTEM Calculated R Thayer -42 degrees MUSE SYSTEM Calculated T Thayer 102 degrees MUSE SYSTEM INTERPRETATION Sinus tachycardia Occasional Premature ventricular com plexes MUSE SYSTEM Left axis deviation 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) Abnormal ECG When compared with ECG of 08-DEC-2021 16:40, Premature ventricular complexes are now Present Confirmed by MD Fernandez Danette ([id number]) on 12/10/2021 4:55:06 PM Specimen Anatomical Collection Method Collection Time Receive d Time (Source) Location / / Volume Laterality 12/09/2021 7:57 AM 2 4:55 EDT PM EDT Iker Cuevas MD ECG ORDERABLES Performing Organization Address City/State/ZIP Code Phon e Number MUSE SYSTEM (ABNORMAL) POCT Glucose (12/09/2021 7:28 AM EDT) P athologist Signature POC Glucose 263 (H) 65 - 199 [facility] LABORATORY Comment: Supplemental ranges: <140 mg/dL before meals <180 mg/dL all other times of the day Specimen Anatomical Collection Method Collection Time Receive d Time (Source) Location / / Volume Laterality Blood 12/09/2021 7:28 AM 2 7:28 EDT AM EDT Iker Cuevas MD POINT OF CARE TEST ORDERABLE S Performing Organization Address City/State/ZIP [place] [address] (ABNORMAL) Hemoglobin A1c (12/09/2021 [...] Mellitus, Diabetes Care 2013; 36: Suppl. 1, S67-81 Est Avg Gluc See note mg/dL [facility] LABORATORY Comment: Estimated Average Glucose not [...] with hemoglobinopathies. Additional resources are available on [facility] website. Macario HAMMOND, Ruthann J, Deysi R, et al. ??Tr anslating the A1C assay into estimated average glucose values. ??Diabetes Care 2008:31(8):8672-4410. Specimen Anatomical Collection Method Collection Time Receive d Time (Source) Location / / Volume Laterality Blood Venous Draw / 12/09/2021 6:18 AM 12/10/19 22 Unknown EDT 12:24 PM EDT Resulting Agency Comment Spec In Lab Migdalia BROWN CHEMISTRY ORDERABLES Performing Organization Address [facility] [place] [address] (ABNORMAL) Prothrombin Time (12/09/2021 6:18 AM EDT) P athologist Signature PT 26.6 (H) 9.4 - 12.5 [facility] LABORATORY INR 2.3 [facility] [...] Migdalia BROWN HEMATOLOGY ORDERABLES Performing Organization Address [facility] [place] [address] Heparin (unfractionated) Level (12/09/2021 6:18 AM EDT) P athologist Signature Heparin UFH 0.24 IU/mL [facility] LABORATORY Comment: Heparin (anti-Xa) levels should [...] City/State/ZIP Code Phon e Number [place] [phone] (ABNORMAL) Differential, Automated (12/09/2021 6:18 AM EDT) [facility] gist Method Time Signature Neutrophils % 91.5 % [facility] LABORATORY Neutr Abs (ANC) 15.78 (H) 1.70 - [facility] 6.10 [facility] x10(3)/[facility] L LABORATORY Lymphocytes % 2.9 % [facility] LABORATORY Lymphocytes Abs 0.5 (L) 0.9 - 3.2 [facility] x10(3)/[facility] LABORATORY Monocytes % 4.9 % [facility] LABORATORY Monocyte Abs 0.8 0.3 - 0.9 [facility] x10(3)/[facility] LABORATORY Eosinophils % 0.0 % [facility] LABORATORY Eosinophils Abs 0.0 0.0 - 0.4 [facility] x10(3)/[facility] LABORATORY Basophils % 0.2 % [facility] LABORATORY Basophils Abs 0.0 0.0 - 0.1 [facility] x10(3)/[facility] LABORATORY Immature Gran % 0.50 % [facility] [...] Gran Abs 0.09 (H) 0.00 - 0.04 x10(3)/[facility] LABORATORY Specimen Anatomical Collection Method Collection Time Receive d Time (Source) Location / / Volume Laterality Blood 12/09/2021 6:18 AM 6:33 EDT AM EDT Resulting Agency Comment Spec In Lab Morgan BROWN HEMATOLOGY ORDERABLES Performing Organization Address City/State/ZIP Code Phon e Number [place] [phone] (ABNORMAL) Hemogram (12/09/2021 6:18 AM EDT) Analysis Performed At Patho logist Time Signature WBC 17.2 (H) 4.0 - 9.5 [facility] x10(3)/[facility] LABORATORY RBC 4.32 (L) 4.58 - [facility] 5.54 [facility] x10(6)/[facility] LABORATORY Hemoglobin 12.6 (L) 13.7 - [facility] 16.5 g/dL [facility] LABORATORY Hematocrit 38.9 (L) 40.5 - [facility] 48.5 % [facility] LABORATORY MCV 90.0 82.9 - [facility] 93.1 [facility] LABORATORY MCH 29.2 27.5 - [facility] 32.1 pg [facility] LABORATORY MCHC 32.4 32.0 - [facility] 35.7 g/dL [facility] LABORATORY Platelets 193 145 - 357 [facility] x10(3)/[facility] LABORATORY RDWSD 50.4 (H) 36.0 - [facility] 45.0 [facility] RDWCV 15.2 (H) 11.4 - [facility] 13.8 % [facility] LABORATORY MPV 9.5 7.6 - 12.9 [facility] LABORATORY nRBC % Auto 0.0 % [facility] LABORATORY nRBC Abs Auto 0.000 0.000 - [facility] 0.000 [facility] x10(3)/[facility] LABORATORY Specimen Anatomical Collection Method Collection Time Receive d Time (Source) Location / / Volume Laterality Blood 12/09/2021 6:18 AM 6:33 EDT AM EDT Resulting Agency Comment Spec In Lab Morgan BROWN HEMATOLOGY ORDERABLES Performing Organization Address City/State/[place] [address] Lipid Panel (Reflex Direct LDL) (12/09/2021 6:18 AM EDT) athologist Signature Chol, Total 105 mg/dL [facility] LABORATORY Comment: Lower Risk: <200 mg/dL Average Risk: 200-239 mg/dL Higher Risk: >dx=853 mg/dL Triglycerides 133 mg/dL [facility] LABORATORY Comment: Average Risk/Lower Risk: <150 mg/dL Borderline High Risk: 150-199 mg/dL High Risk: 200-499 mg/dL Very High Risk: >hz=686 mg/dL HDL 42 mg/dL [facility] LABORATORY Comment: Males: ?? Higher Risk: <40 mg/dL Females: ?? Higher Risk: <50 mg/dL LDL Cholesterol 36 mg/dL [facility] LABORATORY Comment: Lowest Risk: <100 mg/dL Lower Risk: 100-129 mg/dL Borderline High Risk: 130-159 mg/dL High Risk: 160-189 mg/dL Very High Risk: >ow=980 mg/dL Chol/HDL Ratio 2.5 ratio [facility] LABORATORY Lipid Interpretation See Note [facility] LABORATORY Comment: Lipid management should be guided by a p atient? s ASCVD risk, goals and preferences. ACC/AHA Guidelines recommend high intens ity statin if clinical ASCVD or LDL greater than or equal to 190 mg/dL. [email or web address] Adults aged 40-75 with LDL 70-189 mg/dL should have their 10 year ASCVD risk estimated with the ACC/AHA ASCVD risk es timator http://tools.acc.org/FNRLN-Ibra-Hrkwwoye r/ Statin should be discussed if risk [...] Cuevas MD CHEMISTRY ORDERABLES Performing Organization Address City/[facility]/ZIP [place] [address] TSH (12/09/2021 6:18 AM EDT) P athologist Signature TSH 1.60 0.27 - 4.20 [place] mcIU/mL [facility] LABORATORY Comment: Reference Interval (mcIU/mL): Females: ??First Trimester: 0.23-3.88 ??Second Trimester: 0.22-3.90 ??Third Trimester: 0.44-4.66 Specimen Anatomical Collection Method Collection Time Receive d Time (Source) Location / / Volume Laterality Blood 12/09/2021 6:18 AM 2 6:33 EDT AM EDT Resulting Agency Comment Spec In Lab Iker Cuevas MD CHEMISTRY ORDERABLES Performing Organization Address City/[facility]/ZIP [place] [address] Hepatic Function Panel (12/09/2021 6:18 AM EDT) P athologist Signature Total Protein 7.3 6.1 - 8.0 [place] g/dL [facility] LABORATORY Albumin 4.2 3.2 - 5.2 [place] g/dL [facility] LABORATORY AST 25 0 - 39 [facility] unit/L [facility] LABORATORY ALT 15 0 - 55 [facility] LABORATORY Alk Phos 75 40 - 130 [facility]/L [facility] LABORATORY Total 1.1 0.2 - 1.3 [place] Bilirubin mg/dL [facility] LABORATORY Bili, Direct 0.2 0.0 - 0.3 [facility] LABORATORY Specimen Anatomical Collection Method Collection Time Receive d Time (Source) Location / / Volume Laterality Blood 12/09/2021 6:18 AM 6:33 EDT AM EDT Resulting Agency Comment Spec In Lab Iker Cuevas MD CHEMISTRY ORDERABLES Performing Organization Address City/State/ZIP [place] [address] (ABNORMAL) BMP w/fasting Glucose (12/09/2021 6:18 AM EDT) athologist Signature Glucose 235 (H) 65 - 99 [facility] Fasting mg/dL [facility] LABORATORY Comment: ?Fasting* Glucose [...] of Diabetes Mellitus, Position Statement from the [place] [employer]. ??Diabete s Care, Volume 33, Supplement 1, Jul 2009 BUN 49 (H) 10 - 20 mg/dL [facility] LABORATORY Creatinine 1.33 0.80 - 1.50 mg/dL [facility] Sodium 139 135 - 145 mmol/L [facility] K [facility] LABORATORY Potassium 4.2 3.5 - [...] Organization Address City/State/[place] [address] Magnesium (12/09/2021 6:18 AM EDT) P athologist Signature Magnesium 0.81 0.69 - 1.07 [facility] mmol/L [facility] LABORATORY Specimen Anatomical Collection Method Collection Time Receive d Time (Source) Location / / Volume Laterality Blood 12/09/2021 6:18 AM 2 6:33 EDT AM EDT Resulting Agency Comment Spec In Lab Iker Cuevas MD CHEMISTRY ORDERABLES Performing Organization Address City/[facility]/ZIP [place] [address] (ABNORMAL) Troponin (12/09/2021 6:18 AM EDT) P athologist Signature Troponin-T 1.13 (H) 0.00 - BARBAR[facility] DAVIS 0.00 ng/mL [facility] LABORATORY Comment: The 99th [...] additional sample may be indicated. Reference: Third [place] Definition of Myocardial Infarction. Journal of the [place] [employer] 2012;60:1581-98 Specimen Anatomical Collection Method Collection Time Receive d Time (Source) Location / / Volume Laterality Blood 12/09/2021 6:18 AM 2 6:33 EDT AM EDT Resulting Agency Comment Spec In Lab Iker Cuevas MD CHEMISTRY ORDERABLES Performing Organization Address City/[facility]/ZIP [place] [address] XR Chest One View [...] who have questions please contact the health behavioral health care manager that requested your imaging first. ? [...] ho have questions please contact the health behavioral health care manager that requested your imaging first. Electronically signed by: Yoselin White, [facility] ([phone]), at 12/09/2021 5:35 AM Amber Sanches MD IMG DX ORDERABLES (ABNORMAL) BLOOD GAS 2 ARTERIAL (12/09/2021 5:14 AM EDT) Analysis Performed At Patho logist Time Signature pH Art 7.43 7.35 - [facility] 7.45 [facility] LABORATORY pCO2 Art 36 35 - 45 [facility] mmHg [facility] LABORATORY pO2 Art 67 (L) 85 - 104 [facility] LABORATORY HCO3 Art 23.4 20.0 - [facility] 26.0 [facility] mmol/L [facility] LABORATORY BE Art -0.9 -3.0 - 3.0 [facility] mmol/L [facility] LABORATORY Hgb Blood Gas 13.2 (L) 13.7 - [facility] 16.5 g/dL [facility] LABORATORY O2HB Art 91.3 (L) 94.0 - [facility] 97.0 % [facility] LABORATORY COHB Art 0.4 [...] WB 2.7 (H) 0.5 - 2.2 mmol/L [facility] LABORATORY FIO2 Art 35 % [facility] LABORATORY Flow Art 8.0 LPM [facility] LABORATORY PF Ratio Art 191 [facility] LABORATORY Specimen Anatomical Collection Method Collection Time Receive d Time (Source) Location / / Volume Laterality Blood 12/09/2021 5:14 AM 2 5:14 EDT AM EDT Iker Cuevas MD CHEMISTRY ORDERABLES Performing Organization Address City/[facility]/ZIP [place] [address] POCT Glucose (12/09/2021 4:46 AM EDT) athologist Signature POC Glucose 198 65 - 199 [facility] LABORATORY Comment: Supplemental ranges: <140 mg/dL before meals <180 mg/dL all other times of the day Specimen Anatomical Collection Method Collection Time Receive d Time (Source) Location / / Volume Laterality Blood 12/09/2021 4:46 AM 2 4:46 EDT AM EDT Iker Cuevas MD POINT OF CARE TEST ORDERABLE S Performing Organization Address City/[facility]/ZIP [place] [address] (ABNORMAL) POCT Glucose (12/09/2021 3:01 AM EDT) P athologist Signature POC Glucose 225 (H) 65 - 199 [facility] mg/dL [facility] LABORATORY Comment: Supplemental ranges: <140 mg/dL before meals <180 mg/dL all other times of the day Specimen Anatomical Collection Method Collection Time Receive d Time (Source) Location / / Volume Laterality Blood 12/09/2021 3:01 AM 2 3:01 EDT AM EDT Iker Cuevas MD POINT OF CARE TEST ORDERABLE S Performing Organization Address City/[facility]/ZIP [place] [address] (ABNORMAL) POCT Glucose (12/08/2021 10:55 PM EDT) athologist Signature POC Glucose 327 (H) 65 - 199 [facility] mg/dL [facility] LABORATORY Comment: Supplemental ranges: <140 mg/dL before meals <180 mg/dL all other times of the day Specimen Anatomical Collection Method Collection Time Receive d Time (Source) Location / / Volume Laterality Blood 12/08/2021 10:55 12/08/2021 PM EDT 10:55 PM EDT Iker Cuevas MD POINT OF CARE TEST ORDERABLE S Performing Organization Address City/[facility]/ZIP [place] [address] Heparin (unfractionated) Level (12/08/2021 10:03 PM EDT) athologist Signature Heparin UFH 0.18 IU/mL [facility] LABORATORY Comment: Heparin (anti-Xa) levels should [...] Address City/State/ZIP [place] [address] (ABNORMAL) Troponin (12/08/2021 10:03 PM EDT) athologist Signature Troponin-T 0.92 (H) 0.00 - BARBARA ZHAORYAN 0.00 ng/mL [facility] LABORATORY Comment: The 99th [...] additional sample may be indicated. Reference: Third [place] Definition of Myocardial Infarction. Journal of the [place] [employer] 2012;60:1581-98 Specimen Anatomical Collection Method Collection Time Receive d Time (Source) Location / / Volume Laterality Blood 12/08/2021 10:03 12/08/2021 PM EDT 10:31 PM EDT Resulting Agency Comment Spec In Lab Iker Cuevas MD CHEMISTRY ORDERABLES Performing Organization Address City/[facility]/ZIP [place] [address] (ABNORMAL) POCT Glucose (12/08/2021 8:22 PM EDT) athologist Signature POC Glucose 429 (H) 65 - 199 [place] mg/dL [facility] LABORATORY Comment: Supplemental ranges: <140 mg/dL before meals <180 mg/dL all other times of the day Specimen Anatomical Collection Method Collection Time Receive d Time (Source) Location / / Volume Laterality Blood 12/08/2021 8:22 PM 2 8:22 EDT PM EDT Iker Cuevas MD POINT OF CARE TEST ORDERABLE S Performing Organization Address City/State/ZIP [place] [address] (ABNORMAL) POCT Glucose (12/08/2021 7:06 PM EDT) athologist Signature POC Glucose 442 (H) 65 - 199 [facility] mg/dL [facility] LABORATORY Comment: Supplemental ranges: <140 mg/dL before meals <180 mg/dL all other times of the day Specimen Anatomical Collection Method Collection Time Receive d Time (Source) Location / / Volume Laterality Blood 12/08/2021 7:06 PM 2 7:06 EDT PM EDT Iker Cuevas MD POINT OF CARE TEST ORDERABLE S Performing Organization Address City/[facility]/ZIP [place] [address] Magnesium (12/08/2021 6:02 PM EDT) athologist Signature Magnesium 0.86 0.69 - 1.07 [facility] mmol/L [facility] LABORATORY Specimen Anatomical Collection Method Collection Time Receive d Time (Source) Location / / Volume Laterality Blood 12/08/2021 6:02 PM 2 6:36 EDT PM EDT Resulting Agency Comment Spec In Lab Iker Cuevas MD CHEMISTRY ORDERABLES Performing Organization Address City/State/ZIP [place] [address] (ABNORMAL) Basic Metabolic Panel (non-fasting) (12/08/2021 6:02 PM EDT) athologist Signature Glucose Lvl 392 (H) 65 - 199 [facility] mg/dL [facility] LABORATORY Comment: Diabetes: >=200 mg/dL plus symp toms BUN 41 (H) 10 - 20 mg/dL [facility] LABORATORY Creatinine 1.44 0.80 - 1.50 mg/dL [facility] LABORATORY [...] Code Phon e Number [facility] [place] [address] (ABNORMAL) Differential, Automated (12/08/2021 6:02 PM EDT) [facility] Method Time Signature Neutrophils % 89.5 % [facility] LABORATORY Neutr Abs (ANC) 13.97 (H) 1.70 - [facility] 6.10 [facility] x10(3)/[facility] L LABORATORY Lymphocytes % 3.7 % [facility] LABORATORY Lymphocytes Abs 0.6 (L) 0.9 - 3.2 [facility] x10(3)/[facility] LABORATORY Monocytes % 6.1 % [facility] LABORATORY Monocyte Abs 1.0 (H) 0.3 - 0.9 [facility] x10(3)/[facility] LABORATORY Eosinophils % 0.0 % [facility] LABORATORY Eosinophils Abs 0.0 0.0 - 0.4 [facility] x10(3)/[facility] LABORATORY Basophils % 0.2 % [facility] LABORATORY Basophils Abs 0.0 0.0 - 0.1 [facility] x10(3)/[facility] LABORATORY Immature Gran % 0.50 % [facility] [...] Gran Abs 0.08 (H) 0.00 - 0.04 x10(3)/[facility] LABORATORY Specimen Anatomical Collection Method Collection Time Receive d Time (Source) Location / / Volume Laterality Blood 12/08/2021 6:02 PM 6:36 EDT PM EDT Resulting Agency Comment Spec In Lab Morgan BROWN HEMATOLOGY ORDERABLES Performing Organization Address City/State/[place] [address] (ABNORMAL) Hemogram (12/08/2021 6:02 PM EDT) Analysis Performed At Patho logist Time Signature WBC 15.6 (H) 4.0 - 9.5 [facility] LABORATORY RBC 4.05 (L) 4.58 - [facility] RYAN 5.54 [facility] x10(6)/[facility] LABORATORY Hemoglobin 11.8 (L) 13.7 - [facility] 16.5 g/dL [facility] LABORATORY Hematocrit 35.8 (L) 40.5 - [facility] 48.5 % [facility] LABORATORY MCV 88.4 82.9 - [facility] 93.1 [facility] LABORATORY MCH 29.1 27.5 - [facility] 32.1 pg [facility] LABORATORY MCHC 33.0 32.0 - [facility] 35.7 g/dL [facility] LABORATORY Platelets 178 145 - 357 [facility] x10(3)/[facility] LABORATORY RDWSD 49.3 (H) 36.0 - BARBAAR RYAN 45.0 [facility] LABORATORY RDWCV 15.1 (H) 11.4 - [facility] % [facility] LABORATORY MPV 10.4 7.6 - 12.9 [facility] LAB[facility] nRBC % Auto 0.0 % [facility] LABORATORY nRBC Abs Auto 0.000 0.000 - [facility]000 [facility] x10(3)/[facility] LABORATORY Specimen Anatomical Collection Method Collection Time Receive d Time (Source) Location / / Volume Laterality Blood 12/08/2021 6:02 PM 2 6:36 EDT PM EDT Resulting Agency Comment Spec In Lab Morgan BROWN HEMATOLOGY ORDERABLES Performing Organization Address City/State/[place] [address] (ABNORMAL) Troponin (12/08/2021 6:02 PM EDT) P athologist Signature Troponin-T 0.89 (H) 0.00 - BARBARA RYAN 0.00 ng/mL [facility] LABORATORY Comment: The 99th [...] additional sample may be indicated. Reference: Third [place] Definition of Myocardial Infarction. Journal of the [place] [employer] 2012;60:1581-98 Specimen Anatomical Collection Method Collection Time Receive d Time (Source) Location / / Volume Laterality Blood 12/08/2021 6:02 PM 2 6:36 EDT PM EDT Resulting Agency Comment Spec In Lab Iker Cuevas MD CHEMISTRY ORDERABLES Performing Organization Address City/State/[place] [address] COVID-19 PCR (12/08/2021 5:00 PM EDT) [facility] Method Time Signature SARS-CoV-2 Not Detected Not Detected [facility] RNA PCR [facility] LABORATORY Comment: This result should be interpreted [...] using the Simplexa COVID-19 Direct Assay by [employer] as authorized by the FDA issued Emergency [...] clinical management guidance information are available at [facility] CDC Coronavirus Disease 2019 (COVID-19) webpage under Information fo r Healthcare Professionals (https://www.cdc.gov/coronavirus/2019-nc ov/hcp/index.html). Additional information about this and ot her EUA tests can be found in provider and patient fact sheets at the following FDA website: https://www.fda.gov/medical-devices/xplvflcczzo-orohihx-4796-scmji-24-zipgdnboa- mxn-pblipbygxhrmkk-bzstyfi-devices/grjkv-bfhngrughop-lwnr SARS-CoV-2 Source [employer]S ADVISOR Swab [facility] LABORATORY Specimen (Source) Anatomical Collection Method Collection Time Re ceived Time Location / / Volume Laterality Nasopharyngeal Swab 12/08/2021 5:00 12/08 PM EDT 6:03 PM EDT Comment: Symptoms->Surveillance Resulting Agency Comment Spec In Lab Iker Cuevas MD MICROBIOLOGY - GENERAL ORDER [place] Performing Organization Address City/State/[place] [address] EKG 12 Lead (12/08/2021 4:40 PM EDT) Component Value Ref Range Test Analysis Performed Pathologis t Method Time At Signature Ventricular rate 78 BPM MUSE SYSTEM Atrial Rate 78 BPM MUSE SYSTEM P-R Interval 152 ms MUSE SYSTEM QRS Duration 96 ms MUSE SYSTEM Q-T Interval 396 ms MUSE SYSTEM QTC Calculated 451 ms MUSE SYSTEM (Bezet) Calculated P Thayer 44 degrees MUSE SYSTEM Calculated R Thayer -31 degrees MUSE SYSTEM Calculated T Thayer 124 degrees MUSE SYSTEM INTERPRETATION Normal sinus [...] Cuevas MD ECG ORDERABLES Performing Organization Address City/[facility]/ZIP Code Phon e Number MUSE SYSTEM (ABNORMAL) POCT Glucose (12/08/2021 4:34 PM EDT) P athologist Signature POC Glucose 400 (H) 65 - 199 [facility] mg/dL [facility] LABORATORY Comment: Supplemental ranges: <140 mg/dL before meals <180 mg/dL all other times of the day Specimen Anatomical Collection Method Collection Time Receive d Time (Source) Location / / Volume Laterality Blood 12/08/2021 4:34 PM 2 4:34 EDT PM EDT Iker Cuevas MD POINT OF CARE TEST ORDERABLE S Performing Organization Address City/[facility]/ZIP Code Phon e Number [place] [id number] documented in this encounter [...] Given 11/23 10:30 AM EDT 300 mcg (OUTREACH LIAISON) ONCE PRN, Starting on Wed12/10/21 at 1030, [...] Provider: Barbara Boogie RN)2346 (Given - Provider: aBrbara Boogie RN) 0507 (Given - Provider: Barbara [...] 0735 (Given - Provider: Emma Garcia RN)0805 ([facility] Hold - Provider: [...] (Intra-Procedure), Routine niCARdipine (Cardene) (100 mcg/mL) dilution (OUTREACH LIAISON) (CANCELED) 1030 (Given - Provider: Vitaliy Nobles [...] episode. & nbsp; For persistent hypoglycemia, con fiber optics supervisor longer-acting treatment for the duration of [...]
Routine documented in this encounter Care Teams Carton Inspector Relationship Specialty Start Date End Date Lovely Vicente MD PCP - General 04/16/[address] [place] [address] documented as of this encounter
--- OUTSIDE RECORDS SUMMARY | 2022-03-13 10:53 | XMS_ITS | Encounter Summary ---
:1945 Author Organization [facility] [place] [address] Care Team Providers Name Role Phone Lovely Vicente MD Primary Care Provider Reason for Referral Consultation (Routine) - Closed Specialty Diagnoses / Referred By Contact Referred To Contact Procedures Cardiac Rehabilitation Diagnoses Acute HFrEF (heart failure with reduced ejection fraction) Janneth Padilla, Cardiac Rehab, [address] [place] CARDIOLOGY DEPT. [address] [place] [address] Referral ID Status Reason Start Date Expiration Date Visits V isits Requested Authorized [id number] Closed Consult, 12/12/2021 12/12/2022 36 36 Test & Treat Reason for Visit Auth/Cert Specialty Diagnoses / Procedures Referred By Contact Refer red To Contact Diagnoses NSTEMI Procedures emerg ipi Referral ID Status Reason Start Date Expiration Date Visits Requ ested Visits Authorized [id number] 1 1 Encounter Details Date Type Department Care Team Description 12/08/2021 - Hospital Encounter Intermediate Cardiac Iker Cuevas MD [facility] [place] [address] Non-ST elevation myocardial infarction ( NSTEMI); 12/12/2021 Care Unit Ifeanyi Rene MD [facility] [place] [address] ST elevation myocardial infarction (STEM I), unspecified artery; [facility] Acute HFr EF (heart failure with reduced ejection fraction) [place] [address] Social History Tobacco Use Types Packs/Day Years [...] Don Fatima Patient Age: 76 y.o. Language: Korean Race: White Ethnicity: Not nor Admit date: [...] Peter PA-C Kelly LaFlamme PA-C Cardiovascular Medicine [phone] Discharge Diagnoses (Hospital Problems) and Secondary Diagnoses [...] 3.75 guiding catheter and a 3.5 Fr [place] [facility] 20 Mhz using Manual pullback. Imaging was successful. Image quality was good. The ostial LCX showed moderate diffuse atherosclerotic plaque with scattered three quadrant calcification. Measurements were performed after pre-dilation. Post Intervention: The stent was well expanded and apposed. Intravascular Ultrasound was performed in the distal LM using a 7 Fr EBU 3.75 guiding catheter and a 3.5 Fr [place] [facility] 20 Mhz using Manual pullback. Imaging was [...] may require modification of this regimen. Consult [facility] Interventional Cardiology for questions. The 1 year [...] vascular congestion and cardiomegaly. ?? TTE from [facility] 12/08/21 ? Prior Cardiac Studies: [...] prior thyroidectomy in 2012 who presented to [facility] with 1 week progressing breathlessness [...] 03/2021 with Liz Poole PA-C. ?? At [facility], respiratory distress with hypoxia [...] mg PO daily in place of lasix. [place] is new for him and he will [...] to be ~$24/mo; affordable per patient. Post [facility] he was started on Eliquis. He continued [...] appointments: During 8am-5pm Wednesday through Wednesday call [phone] to speak with a nurse in the cardiology clinic All other times call [phone] and ask to speak to the fabric coating supervisor information security consultant. Return to work: One week Driving: No driving for 48 hours after catheterization. Follow up Appointments: PCP Lovely Vicente MD [phone] to see patient at the end of December for annual check up. Patient to see Dr. Lorenzana at 1120 am at December 19 for a post hospital check up. Lead Sustainability Specialist Dr. De Oliveira to see you in [facility]. Left a message for office to set a date and time. Please call [phone] Nobles to see the patient for a same day cath in 2-3 weeks from now. Office to call with a date and time. For questions please call [phone] Home oxygen therapy: N/A Arrangements for VNA/home care: none Future Appointments and Orders Future Orders Complete By Expires Basic Metabolic Panel (non-fasting) [LAB15 Custom] 12/19/2021 (Approximate) 12/12/2022 Process Instructions: INCLUDES: Calcium, BUN, Creat, GFR, Glucose, Lytes Scheduling Instructions: Comments: Questions: Referral to Cardiac Rehab [[id number] Custom] As directed Process Instructions: If no [...] appointments: During 8am-5pm Wednesday through Wednesday call [phone] to speak with a nurse in the cardiology clinic All other times call [phone] and ask to speak to the fabric coating supervisor information security consultant. Return to work: One week Driving: No driving for 48 hours after catheterization. Follow up Appointments: PCP Lovely Vicente MD [phone] to see patient at the end of December for annual check up. Patient to see Dr. Lorenzana at 1120 am at December 19 for a post hospital check up. Lead Sustainability Specialist Dr. De Oliveira to see you in [facility]. Left a message for office to set a date and time. Please call [phone] Nobles to see the patient for a same day cath in 2-3 weeks from now. Office to call with a date and time. For questions please call [phone] Home oxygen therapy: N/A Arrangements for VNA/home [...] Progress Note Patient Name: Don Fatima Service: IMPLEMENTATION DIRECTOR / PA Responsible Attending: Ifeanyi Truong MD [...] Lasix 80mg IV x1 in labor relations officer. Tolerated procedure well. Home today at 11 [...] TROPONINT 1.13* 0.92* 0.89* Pertinent Radiographic/Diagnostic Results: R/[facility] 12/10/21 Hemodynamics: Right Heart Pressures Resting: Syst [...] pulmonary vascular congestion and cardiomegaly. TTE from [facility] 12/08/21 Prior Cardiac Studies: TTE [...] with MD Janneth Neville PA 12/12/2021 Pager [phone] Associated attestation - Ifeanyi Truong MD - [...] ratio for each meal) Desirae Jett APRN [facility] Endocrinology Diabetes Management Pager [phone] 20 minutes of this 35 minute visit [...] Progress Note Patient Name: Don Fatima Service: IMPLEMENTATION DIRECTOR / PA Responsible Attending: Iker Cuevas MD [...] Lasix 80mg IV x1 in labor relations officer. Tolerated procedure well. Review of Systems: Review [...] TROPONINT 1.13* 0.92* 0.89* Pertinent Radiographic/Diagnostic Results: R/[facility] 12/10/21 Hemodynamics: Right Heart Pressures Resting: Syst [...] pulmonary vascular congestion and cardiomegaly. TTE from [facility] 12/08/21 Prior Cardiac Studies: TTE [...] Progress Note Patient Name: Don Fatima Service: IMPLEMENTATION DIRECTOR / PA Responsible Attending: Iker Cuevas MD [...] Lasix 80mg IV x1 in labor relations officer. Tolerated procedure well. Review of Systems: Review [...] ??? heparin (porcine) infusion 1,600 Units/hr (12/09/21 5567) PRN Meds:ipratropium-albuteroL, senna-docusate, bisacodyL, sodium chloride 0.9 [...] TROPONINT 1.13* 0.92* 0.89* Pertinent Radiographic/Diagnostic Results: /[facility] 12/10/21 Hemodynamics: Right Heart Pressures Resting: Syst [...] pulmonary vascular congestion and cardiomegaly. TTE from [facility] 12/08/21 Prior Cardiac Studies: TTE [...] Discussed with MD Migdalia Peter PA-C Pager #[phone] 12/10/2021 Cardiology Attending Note I have seen [...] Progress Note Patient Name: Don Fatima Service: IMPLEMENTATION DIRECTOR / PA Responsible Attending: Iker Cuevas MD [...] ??? heparin (porcine) infusion 1,600 Units/hr (12/09/21 6544) PRN Meds:ipratropium-albuteroL, sodium chloride 0.9 % (flush), [...] pulmonary vascular congestion and cardiomegaly. TTE from [facility] 12/08/21 Prior Cardiac Studies: TTE [...] Discussed with MD Migdalia Peter PA-C Pager #[phone] 12/09/2021 Cardiology Attending Note I have seen and examined the patient. I agree with the findings above. Developed CHF early this am despite getting more iv lasix last evening. Feeling better now. INR > 2. Lungs still wet at base. Echo at [facility] showed EF 35% with mild [...] prior thyroidectomy in 2012 who presented to [facility] with 1 week progressing breathlessness [...] visit 03/2021 with Liz Poole PA-C. At [facility], respiratory distress with hypoxia [...] SETUP performed by Manny Mcknight MD at [facility] OR ??? PRO AMPUTATION FOOT, TRANSMETATARSAL Right 08/09/2017 AMPUTATION, TRANSMETATARSAL (WRVU 12.71) performed by Yonathan Smith MD at [facility] OR ??? PRO CABG, ARTERIAL, SINGLE N/A 07/07/2017 @CABG, USING ARTERIAL GRAFT;SINGLE ARTERIAL GRAFT (WRVU 33.75) performed by Yuan Retana MD at [facility] OR ??? PRO CABG, ARTERY-VEIN, TWO N/A 07/07/2017 @CABG, TWO VENOUS GRAFTS & ARTERIAL GRAFT (WRVU 7.93) performed by Yuan Retana MD at [facility] OR ??? PRO COLONOSCOPY, REMV LESN, SNARE 01/16/2014 COLONOSCOPY, POLYPECTOMY, REMOVAL LESION BY SNARE performed by Nohemi Jaimes MD at [facility] ENDOSCOPY ??? PRO DRESSING CHANGE UNDER ANESTHESIA Right 08/11/2017 (MSURG) DRESSING CHANGE (FOR OTHER THAN IVAN) UNDER ANES. (WRVU 0.86) performed by Lamar Smith MD at [facility] OR ??? PRO ENDOSCOPY W/VIDEO-ASST VEIN HARVEST, CABG Right 07/07/2017 ENDOSCOPIC HARVEST VEIN(S) FOR CABG (WRVU 0.31) performed by Yuan Retana MD at [facility] OR ??? PRO THYROIDECTOMY 03/28/2013 THYROIDECTOMY, TOTAL OR COMPLETE performed by Manny Mcknight MD at [facility] MAIN OR Significant Family History: [...] (H) 65 - 199 mg/dL Labs at [facility] 12/08/2021-troponin I 8004 (UN L <60), 12/07- WBC 13.7, hemoglobin 12.6, hematocrit 38.5, platelet 197, absolute neutrophils 11.9, INR 1.7, D-dimer 4 3, potassium 4.2, BUN 25, creatinine 1.5, GFR 46, glucose 214, A1c 7.3, magnesium 1.9, total bilirubin 1.2, AST 41, ALT 25, alk phos 86, albumin 3.5, coronavirus 2019 PCR negative, NT proBNP 5419. ASSESSMENT: Dno Fatima is a 76 y.o. male [...] Monitor for ADRs. Trend troponins. Admission EKG. [facility] 12/09; consented. TTE. Telemetry monitoring, daily weights, [...] code #Diet-carb control; n.p.o. after midnight for [facility] #DVT prophy- heparin infusion #GI prophy- PPI Discussed with MD Morgan Peter PA-C APP2 pager [phone] 12/08/2021 Cardiology Attending Note I have seen [...] is type 1 due to graft or [place] coronary stenosis vs acute injury from CHF. [...] Type: *No Product type* / Secondary Insurance: [employer] [place] Prescription Coverage: Yes This plan was formulated [...] cath without complications. Migdalia Parker PA-C Pager #[phone] 12/10/2021 Initial Assessments - Nick Georges RN [...] COVID test: Lab Results Component Value Date [id number] Not Detected 12/08/2021 Past medical History: Past [...] spouse would be surrogate decision maker per [place] surrogate decision making law. (Only good for 180 days) Any patient receiving care at [facility] must abide by [place] law. The hierarchy for surrogate decision making [...] (i) The agent with financial power of circulation analyst or a conservator appointed in accordance with [...] - standard, cane - straight Home Address: [address] [place] [address] [place] [address] Social & Family Supports: All names listed below confirmed with patient as current and correct Extended Emergency Contact Information Primary Emergency Contact: Kisha Fatima Address: [address] [place] [address] [place] [address] [facility] Mobile Relation: Spouse Secondary Emergency Contact: Elba Swenson Address: [address] Mobile Relation: Child Current Care Provided [...] / Secondary Insurance: [employer] [place] Prescription Coverage: Yes Preferred Pharmacy: [facility] Home Delivery [facility] [address] [id number] - [place], [place] - [address] [place] [address] [place] Status: Patient is a : unable to assess Primary Care Provider: Lovely Vicente MD [phone] Patient/Caregiver Goals of Treatment: Get out of here Potential Needs for Transition of Care: none Agency Referrals: none patient has used [facility] in the past Transportation: no concerns Transportation Anticipated: family or friend will provide Concerns to be Addressed: patient refuses services, discharge planning Assessment: Patient is admitted to [facility] Service pager [phone] for 76 y.o.??male??with h/o??CAD s/p 3vCABG (THOMPSON-LAD, [...] status on current unit. Nick Georges RN quality assistant, Office of Care Management Pager: [phone] Brief Op Note - Vitaliy Nobles MD - 12/10/2021 8:31 AM EDT Images from the original note were not included. Former[facility] 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 Diabetes History: Don Fatima has had diabetes for 10 years. He has been on insulin for the last several years andis managed by his PCP. Lives in [place], [place] with his . 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 Monitoring - continue BG tid ac & hs Diet - low fat/low carb diet Exercise - weight-bearing exercise 30 min/day, as tolerated Thank you for allowing us to provide care for your patient Desirae Johnie QUINONES Endocrinology Pager [phone] minutes of this 80 minute visit [...] to remain on Med/Surg floor, please page [phone] for any further questions or concerns. LANDON [...] for further details. STEPHANIE Rebolledo 12/08/2021 Pager [phone] documented in this encounter Plan of Treatment Upcoming Encounters Date Type Specialty Care Team Description 03/26/2022 Office Visit Cardiology Vitaliy Nobles MD [facility] [address] [place], [place] [address] (Wo rk) 05/28/2022 Appointment Cardiology Zulma Dolan MD [facility] [place], [place] [address] (Wo rk) 05/28/2022 Laboratory Appointment Lab 05/28/2022 Office Visit Cardiology Zulma Dolan MD [place] [address] Liz Poole PA [facility] [place] [address] 06/10/2022 Office Visit Dermatology Laura Scherer MD [facility] [address] [place], [place] [address] (Wo rk) Scheduled Referrals Name [...] Glucose 215 (H) 65 - 199 [facility] mg/dL [facility] LABORATORY Comment: Supplemental ranges: <140 mg/dL before meals <180 mg/dL all other times of the day Specimen Anatomical Collection Method Collection Time Receive d Time (Source) Location / / Volume Laterality Blood 12/12/2021 7:42 AM 7:42 EDT AM EDT Ifeanyi Truong MD POINT OF CARE TEST ORDERABLE S Performing Organization Address City/State/[place] [address] (ABNORMAL) Differential, Automated (12/12/2021 4:51 AM EDT) athologist Signature Neutrophils % 75.4 % [facility] LABORATORY Neutr Abs (ANC) 5.95 1.70 - [facility] 6.10 [facility] x10(3)/[facility] LABORATORY Lymphocytes % 12.2 % [facility] LABORATORY Lymphocytes Abs 1.0 0.9 - [address].2 [facility] x10(3)/[facility] LABORATORY Monocytes % 9.5 % [facility] LABORATORY Monocyte Abs 0.8 0.3 - [address].9 [facility] x10(3)/[facility] LABORATORY Eosinophils % 1.8 % [facility] LABORATORY Eosinophils Abs 0.1 0.0 - [address].4 [facility] x10(3)/[facility] LABORATORY Basophils % 0.5 % [facility] LABORATORY Basophils Abs 0.0 0.0 - [address] [facility] x10(3)/[facility] [...] Gran Abs 0.05 (H) 0.00 - 0.04 x10(3)/[facility] LABORATORY Specimen Anatomical Collection Method Collection Time Receive d Time (Source) Location / / Volume Laterality Blood 12/12/2021 4:51 AM 5:06 EDT AM EDT Resulting Agency Comment Spec In Lab Bijan Sun MD HEMATOLOGY ORDERABLES Performing Organization Address City/State/[place] [address] (ABNORMAL) Hemogram (12/12/2021 4:51 AM EDT) Analysis Performed At Patho logist Time Signature WBC 7.9 4.0 - 9.5 [facility] x10(3)/[facility] LABORATORY RBC 4.19 (L) 4.58 - [facility] 5.54 [facility] x10(6)/[facility] LABORATORY Hemoglobin 12.1 (L) 13.7 - [facility] 16.5 g/dL [facility] LABORATORY Hematocrit 36.7 (L) 40.5 - [facility] 48.5 % [facility] LABORATORY MCV 87.6 82.9 - [place] [facility] 93.1 [facility] LABORATORY MCH 28.9 27.5 - [place] [facility] 32.1 pg [facility] LABORATORY MCHC 33.0 32.0 - [place] 35.7 g/dL [facility] LABORATORY Platelets 231 145 - 357 [facility] x10(3)/[facility] LABORATORY RDWSD 47.2 (H) 36.0 - [place] [facility] 45.0 [facility] LABORATORY RDWCV 14.6 (H) 11.4 - [facility] SU 13.8 % [facility] LABORATORY MPV 9.5 7.6 - 12.9 [facility] LABORATORY nRBC % Auto 0.0 % [facility] LABORATORY nRBC Abs Auto 0.000 0.000 - [place] [facility] 0.000 [facility] x10(3)/[facility] LABORATORY Specimen Anatomical Collection Method Collection Time Receive d Time (Source) Location / / Volume Laterality Blood 12/12/2021 4:51 AM 2 5:06 EDT AM EDT Resulting Agency Comment Spec In Lab Bijan Sun MD HEMATOLOGY ORDERABLES Performing Organization Address City/State/[place] [address] (ABNORMAL) Prothrombin Time (12/12/2021 4:51 AM EDT) P athologist Signature PT 14.9 (H) 9.4 - 12.5 [facility] LABORATORY INR 1.3 [place] [...] Organization Address City/State/[place] [address] (ABNORMAL) BMP w/fasting Glucose (12/12/2021 4:51 AM EDT) athologist Signature Glucose 152 (H) 65 - [address] [facility] Fasting mg/dL [facility] LABORATORY Comment: ?Fasting* Glucose Interpretive [...] - 145 mmol/L [facility] LABORATORY Potassium 3.9 3.5 - 5.0 mmol/L [facility] LABORATORY [...] LABORATORY Calcium 8.9 8.5 - 10.5 mg/dL [facility] LABORATORY Estimated GFR 38 (L) >=60 [...] Address City/State/[place] [address] Magnesium (12/12/2021 4:51 AM EDT) P athologist Signature Magnesium 1.02 0.69 - 1.07 [facility] mmol/L [facility] LABORATORY Specimen Anatomical Collection Method Collection Time Receive d Time (Source) Location / / Volume Laterality Blood 12/12/2021 4:51 AM 2 5:06 EDT AM EDT Resulting Agency Comment Spec In Lab Iker Cuevas MD CHEMISTRY ORDERABLES Performing Organization Address City/State/ZIP Code Phon e Number [address] POCT Glucose (12/12/2021 3:43 AM EDT) P athologist Signature POC Glucose 138 65 - [address] [facility] mg/dL [facility] [...] Address City/State/[place] [address] POCT Glucose (12/11/2021 11:44 PM EDT) P athologist Signature POC Glucose 124 65 - 199 [place] mg/dL [facility] LABORATORY [...] Address City/State/[place] [address] (ABNORMAL) POCT Glucose (12/11/2021 8:12 PM EDT) athologist Signature POC Glucose 200 (H) 65 - 199 [place] [facility] mg/dL [facility] LABORATORY [...] Address City/State/[place] [address] (ABNORMAL) POCT Glucose (12/11/2021 6:50 PM EDT) P athologist Signature POC Glucose 245 (H) 65 - 199 [place] [facility] mg/dL [facility] LABORATORY Comment: Supplemental ranges: <140 mg/dL before meals <180 mg/dL all other times of the day Specimen Anatomical Collection Method Collection Time Receive d Time (Source) Location / / Volume Laterality Blood 12/11/2021 6:50 PM 2 6:50 EDT PM EDT Iker Cuevas MD POINT OF CARE TEST ORDERABLE S Performing Organization Address City/[facility]/[place] [address] (ABNORMAL) POCT Glucose (12/11/2021 4:00 PM EDT) athologist Signature POC Glucose 383 (H) 65 - 199 [facility] mg/dL [facility] LABORATORY Comment: Supplemental ranges: <140 mg/dL before meals <180 mg/dL all other times of the day Specimen Anatomical Collection Method Collection Time Receive d Time (Source) Location / / Volume Laterality Blood 12/11/2021 4:00 PM 2 4:00 EDT PM EDT Iker Cuevas MD POINT OF CARE TEST ORDERABLE S Performing Organization Address City/[facility]/[place] [address] (ABNORMAL) POCT Glucose (12/11/2021 12:01 PM EDT) P athologist Signature POC Glucose 342 (H) 65 - 199 [facility] mg/dL [facility] LABORATORY Comment: Supplemental ranges: <140 mg/dL before meals <180 mg/dL all other times of the day Specimen Anatomical Collection Method Collection Time Receive d Time (Source) Location / / Volume Laterality Blood 12/11/2021 12:01 12/11/2021 PM EDT 12:01 PM EDT Iker Cuevas MD POINT OF CARE TEST ORDERABLE S Performing Organization Address City/[facility]/[place] [address] COVID-19 PCR (12/11/2021 10:13 AM EDT) [facility] gist Method Time Signature SARS-CoV-2 Not Detected Not Detected [facility] LABOR[facility]ORY Comment: This result should be [...] diagnosis of COVID-19 is performed using the [employer]ON[employer] S-CoV-2 Assay as authorized by the FDA Emergency Use Authorization (EUA). This EUA assay is intended for In-vitro Diagnostic (IVD) use with respiratory sp ecimens such as nasopharyngeal swabs collected from individuals during the ac rincon phase of infection. This assay is performed based on the instructions for use provided by [employer] and additional guidance provided by CDC [...] required or requested by public health [facility], positive specimens may be sent [...] fact sheets at the following FDA website: https://www.fda.gov/medical-devices/zuxesgdagyf-jbubsnk-6746-cfewr-10-pfawyebqs- toz-cvnzrpijszyvzo-wwdutpr-devices/qdddk-hplfplapcrp-ynxg SARS-Cov-2 RNA Source IMPLEMENTATION DIRECTOR Swab [facility] LABORATORY Specimen (Source) Anatomical Collection Method Collection Time Re ceived Time Location / / Volume Laterality Nasopharyngeal Swab 12/11/2021 10:13 0503/2022 AM EDT 11:16 AM EDT Comment: Symptoms->Surveillance Resulting Agency Comment Spec In Lab Iker Cuevas MD MICROBIOLOGY - GENERAL ORDER [place] Performing Organization Address City/[facility]/ZIP Code Phon e Number [address] POCT Glucose (12/11/2021 7:34 AM EDT) athologist Signature POC Glucose 198 65 - 199 [facility] mg/dL [facility] LABOR[facility]ORY Comment: Supplemental ranges: <140 mg/dL before meals <180 mg/dL all other times of the day Specimen Anatomical Collection Method Collection Time Receive d Time (Source) Location / / Volume Laterality Blood 12/11/2021 7:34 AM 7:34 EDT AM EDT Iker Cuevas MD POINT OF CARE TEST ORDERABLE S Performing Organization Address City/State/[place] [address] (ABNORMAL) POCT Glucose (12/11/2021 5:07 AM EDT) athologist Signature POC Glucose 208 (H) 65 - 199 [facility] LABORATORY Comment: Supplemental ranges: <140 mg/dL before meals <180 mg/dL all other times of the day Specimen Anatomical Collection Method Collection Time Receive d Time (Source) Location / / Volume Laterality Blood 12/11/2021 5:07 AM 2 5:07 EDT AM EDT Iker Cuevas MD POINT OF CARE TEST ORDERABLE S Performing Organization Address City/State/[place] [address] (ABNORMAL) Differential, Automated (12/11/2021 4:28 AM EDT) [facility] Method Time Signature Neutrophils % 79.6 % [facility] LABORATORY Neutr Abs (ANC) 7.01 (H) 1.70 - [facility] 6.10 [facility] x10(3)/[facility] L LABORATORY Lymphocytes % 9.1 % [facility] LABORATORY Lymphocytes Abs 0.8 (L) 0.9 - 3.2 [facility] x10(3)/[facility] LABORATORY Monocytes % 9.2 % [facility] LABORATORY Monocyte Abs 0.8 0.3 - 0.9 [facility] x10(3)/[facility] LABORATORY Eosinophils % 1.3 % [facility] LABORATORY Eosinophils Abs 0.1 0.0 - 0.4 [facility] x10(3)/[facility] LABORATORY Basophils % 0.5 % [facility] LABORATORY Basophils Abs 0.0 0.0 - 0.1 [facility] x10(3)/[facility] LABORATORY Immature Gran % 0.30 % [...] Gran Abs 0.03 0.00 - 0.04 x10(3)/[facility] LAB[facility] Specimen Anatomical Collection Method Collection Time Receive d Time (Source) Location / / Volume Laterality Blood 12/11/2021 4:28 AM 2 4:37 EDT AM EDT Resulting Agency Comment Spec In Lab Bijan Sun MD HEMATOLOGY ORDERABLES Performing Organization Address City/State/[place] [address] (ABNORMAL) Hemogram (12/11/2021 4:28 AM EDT) Analysis Performed At Patho logist Time Signature WBC 8.8 4.0 - 9.5 [facility](3[facility] LABORATORY RBC 4.15 (L) 4.58 - [facility] 5.54 [facility] x10(6)/[facility] LABORATORY Hemoglobin 11.9 (L) 13.7 - [facility] 16.5 g/dL [facility] LABORATORY Hematocrit 36.9 (L) 40.5 - [facility] 48.5 % [facility] LABORATORY MCV 88.9 82.9 - [facility] 93.1 [facility] LABORATORY MCH 28.7 27.5 - [facility] 32.1 pg [facility] LABORATORY MCHC 32.2 32.0 - [facility] 35.7 g/dL [facility] LABORATORY Platelets 211 145 - 357 [facility] x10(3)/[facility] LABORATORY RDWSD 48.3 (H) 36.0 - [facility] 45.0 [facility] LABORATORY RDWCV 14.8 (H) 11.4 - [facility] 13.8 % [facility] LABORATORY MPV 9.6 7.6 - 12.9 [facility] LABORATORY nRBC % Auto 0.0 % [facility] LABORATORY nRBC Abs Auto 0.000 0.000 - [facility] SU 0.000 [facility] x10(3)/[facility] LABORATORY Specimen Anatomical Collection Method Collection Time Receive d Time (Source) Location / / Volume Laterality Blood 12/11/2021 4:28 AM 4:37 EDT AM EDT Resulting Agency Comment Spec In Lab Bijan Sun MD HEMATOLOGY ORDERABLES Performing Organization Address City/State/[place] [address] (ABNORMAL) Prothrombin Time (12/11/2021 4:28 AM EDT) P athologist Signature PT 17.7 (H) 9.4 - 12.5 [facility] LABORATORY INR 1.6 [place] Address City/State/[place] [address] (ABNORMAL) BMP w/fasting Glucose (12/11/2021 4:28 AM EDT) athologist Signature Glucose 207 (H) 65 - 99 [facility] Fasting mg/dL [facility] LABORATORY Comment: ?Fasting* Glucose Interpretive [...] BUN 49 (H) 10 - 20 mg/dL [facility] LABORATORY Creatinine 1.43 0.80 - 1.50 mg/dL [facility] Sodium 142 135 - 145 mmol/L [...] 10.5 mg/dL [facility] LABORATORY Estimated GFR 48 (L) >=60 [...] Organization Address City/State/Z[place] [address] Magnesium (12/11/2021 4:28 AM EDT) P athologist Signature Magnesium 1.04 0.69 - 1.07 [facility] mmol/L [facility] LABORATORY Specimen Anatomical Collection Method Collection Time Receive d Time (Source) Location / / Volume Laterality Blood 12/11/2021 4:28 AM 2 4:37 EDT AM EDT Resulting Agency Comment Spec In Lab Iker Cuevas MD CHEMISTRY ORDERABLES Performing Organization Address City/State/[place] [address] POCT Glucose (12/11/2021 3:58 AM EDT) athologist Signature POC Glucose 189 65 - 199 [facility] mg/dL [facility] LABORATORY [...] Address City/State/[place] [address] (ABNORMAL) POCT Glucose (12/10/2021 11:45 PM EDT) athologist Signature POC Glucose 205 (H) 65 - 199 [facility] mg/dL [facility] LABORATORY [...] Address City/State/[place] [address] (ABNORMAL) POCT Glucose (12/10/2021 7:54 PM EDT) athologist Signature POC Glucose 225 (H) 65 - 199 [facility] mg/dL [facility] LABORATORY Comment: Supplemental ranges: <140 mg/dL before meals <180 mg/dL all other times of the day Specimen Anatomical Collection Method Collection Time Receive d Time (Source) Location / / Volume Laterality Blood 12/10/2021 7:54 PM 2 7:54 EDT PM EDT Iker Cuevas MD POINT OF CARE TEST ORDERABLE S Performing Organization Address City/[facility]/[place] [address] Potassium (12/10/2021 7:46 PM EDT) athologist Signature Potassium 4.2 3.5 - 5.0 [facility] mmol/L [facility] LABORATORY Comment: Please note: ??Patients [...] Cuevas MD CHEMISTRY ORDERABLES Performing Organization Address City/[facility]/[place] [address] (ABNORMAL) Basic Metabolic Panel (non-fasting) (12/10/2021 6:12 PM EDT) athologist Signature Glucose Lvl 246 (H) 65 - [address] [facility] mg/dL [facility] LABORATORY Comment: Diabetes: >=200 mg/dL plus symp toms BUN 50 (H) 10 - 20 mg/dL [facility] LABORATORY Creatinine 1.39 0.80 - 1.50 mg/dL [facility] OCK [facility] LABORATORY Sodium 138 135 - [...] Gap 16 (H) 5 - 15 mmol/L [facility] LABORATORY Calcium 8.3 (L) 8.5 - [...] Organization Address City/State/[place] [address] POCT Glucose (12/10/2021 4:59 PM EDT) P athologist Signature POC Glucose 158 65 - [address] [facility] mg/dL [facility] [...] Organization Address City/State/ZIP Code Phon e Number [address] (ABNORMAL) POCT Glucose (12/10/2021 12:43 PM EDT) P athologist Signature POC Glucose 241 (H) 65 - [address] [facility] mg/dL [facility] LABORATORY Comment: Supplemental ranges: <140 mg/dL before meals <180 mg/dL all other times of the day Specimen Anatomical Collection Method Collection Time Receive d Time (Source) Location / / Volume Laterality Blood 12/10/2021 12:43 12/10/2021 PM EDT 12:43 PM EDT Iker Cuevas MD POINT OF CARE TEST ORDERABLE S Performing Organization Address [facility]/[place] [address] EKG 12 Lead (12/10/2021 11:17 AM EDT) Component Value Ref Range Test Analysis Performed Pathologis t Method Time At Signature Ventricular rate 62 BPM MUSE SYSTEM Atrial Rate 62 BPM MUSE SYSTEM P-R Interval 142 ms MUSE SYSTEM QRS Duration 100 ms MUSE SYSTEM Q-T Interval 434 ms MUSE SYSTEM QTC Calculated 440 ms MUSE SYSTEM (Bezet) Calculated P Mildred 34 degrees MUSE SYSTEM Calculated R Mildred -39 degrees MUSE SYSTEM Calculated T Mildred 92 degrees MUSE SYSTEM INTERPRETATION Normal sinus [...] Cuevas MD ECG ORDERABLES Performing Organization Address City/[facility]/ZIP Code Phon e Number MUSE SYSTEM CARDIAC CATHETERIZATION (12/10/2021 10:54 AM EDT) Specimen (Source) Anatomical Location Collection Method / Collectio n Time Received Time / Laterality Volume Narrative CARDIOMAC SYSTEM - 12/10/2021 12:04 PM E DT ?[facility] ? Cardiac Cathete rization/Intervention Report ? Patient Name: Don Fatima. ? Procedure Date: 12/10/2021 ? A #: [id number] ? Primary Physician: Vitaliy Nobles ? Case #: [id number] ? File Name: [id number] ? Catheterization Order Number: [id number] ? [facility] ? Final Report [place], [place] ? Patient Name: ? Don E. Stewa rt ? ID#: ?[id number] ? : ?1945 ? Procedure Date: ? December 10, 2021 ? Case #: ? [id number] ? Room: ? 1 ? Case Physician: [...] ?designated as ASA Class III. Th e [facility] clinical frailty scale is 5: [...] Urgent. The indication for ?the labor relations officer visit is ACS great er than 24 [...] ?3.75 guiding catheter and a 3.5 Fr [place] [facility] 20 Mhz using Manual ?pullback. ??Imaging was [...] ?3.75 guiding catheter and a 3.5 Fr [facility] 20 Mhz using Manual ?pullback. ??Imaging was [...] Vitaliy Nobles MD - 01/14/2022 [facility] Cardiac Catheterization/Intervention Re port Patient Name: Kushal Don MccollumMadiha Procedure Date: 12/10/2021 A #: [id number] Primary Physician: Vitaliy Nobles Case #: [id number] File Name: [id number] Catheterization Order Number: [id number] [facility] Final Report [place], [place] Patient Name: Don Fatima ID#: [...] Urgent. The indication for the labor relations officer visit is ACS greater than 24 hrs [...] and a 3.5 Fr [place] [facility] 20 Mhz using Manual pullback. Imaging was [...] and a 3.5 Fr [facility] 20 Mhz using Manual pullback. Imaging was [...] require modification of this regimen. Consult [facility] Interventional Cardiology for questions. [...] Glucose 262 (H) 65 - [address] [facility] mg/dL [facility] [...] Organization Address City/State/[place] [address] (ABNORMAL) POCT Glucose (12/10/2021 9:48 AM EDT) athologist Signature POC Glucose 279 (H) 65 - 199 [facility] mg[facility]dL [facility] LABORATORY [...] Address City/State/[place] [address] (ABNORMAL) POCT Glucose (12/10/2021 9:07 AM EDT) P athologist Signature POC Glucose 268 (H) 65 - 199 [facility] mg/dL [facility] LABORATORY [...] Address City/State/[place] [address] (ABNORMAL) Point of Care Blood Gas Historical (12/10/2021 9:04 AM EDT) Patholo gist Method Time Signature POC pH 7.40 7.35 - [facility] 7.45 [facility] LABORATORY POC PCO2 40 35 - [address] [facility] mmHg [facility] LABORATORY POC PO2 63 (L) 85 - 104 [facility] LABORATORY POC Base Excess 0.0 -3.0 - 3.0 [facility] K mmol/L [facility] LABORATORY POC HCO3 24.8 20.0 - [facility] 26.0 [facility] mmol/L HOSPITAL LABORATORY POC Sodium 143 135 - 145 [facility]/L [facility] LABORATORY POC Potassium 3.7 3.5 - 5.0 [facility] mmol/L [facility] LABORATORY POC Ionized Ca 1.07 (L) 1.15 - [facility] 1.33 [facility] mmol/L HOSPITAL LABORATORY POC Hematocrit 30.0 (L) 40.0 - [facility] 51.0 % [facility] LABORATORY POC Calc Hgb 10.2 (L) 13.7 - [facility] 17.5 g/dL [facility] LABORATORY Comment: The calculation of hemoglobin f rom hematocrit assumes a normal MCHC. POC Bgas Loc CC LAB [facility] LABORATORY Specimen Anatomical Collection Method Collection Time Receive d Time (Source) Location / / Volume Laterality Blood 12/10/2021 9:04 AM 2 EDT 12:00 PM EDT Ifeanyi Truong MD CHEMISTRY ORDERABLES Performing Organization Address City/[facility]/[place] [address] (ABNORMAL) POCT Glucose (12/10/2021 7:19 AM EDT) athologist Signature POC Glucose 274 (H) 65 - [address] [facility] mg/dL [facility] LABORATORY Comment: Supplemental ranges: <140 mg/dL before meals <180 mg/dL all other times of the day Specimen Anatomical Collection Method Collection Time Receive d Time (Source) Location / / Volume Laterality Blood 12/10/2021 7:19 AM 2 7:19 EDT AM EDT Iker Cuevas MD POINT OF CARE TEST ORDERABLE S Performing Organization Address City/[facility] [place] [address] Heparin (unfractionated) Level (12/10/2021 4:25 AM EDT) athologist Signature Heparin UFH 0.69 IU/mL [facility] LABORATORY Comment: Heparin (anti-Xa) levels [...] Organization Address City/State/[place] [address] (ABNORMAL) Differential, Automated (12/10/2021 4:25 AM EDT) [facility] Method Time Signature Neutrophils % 79.8 % [facility] LABORATORY Neutr Abs (ANC) 7.47 (H) 1.70 - [facility] 6.10 [facility] x10(3)/[facility] LABORATORY Lymphocytes % 10.6 % [facility] LABORATORY Lymphocytes Abs 1.0 0.9 - 3.2 [facility] x10(3)/[facility] LABORATORY Monocytes % 8.4 % [facility] LABORATORY Monocyte Abs 0.8 0.3 - 0.9 [facility] x10(3)/[facility] LABORATORY Eosinophils % 0.6 % [facility] LABORATORY Eosinophils Abs 0.1 0.0 - 0.4 [facility] x10(3)/[facility] LABORATORY Basophils % 0.2 % [facility] LABORATORY Basophils Abs 0.0 0.0 - 0.1 [facility] x10(3)/[facility] LABORATORY Immature Gran % 0.40 % [...] 0.04 0.00 - 0.04 x10(3)/[facility] Specimen Anatomical Collection Method Collection Time Receive d Time (Source) Location / / Volume Laterality Blood 12/10/2021 4:25 AM 2 4:34 EDT AM EDT Resulting Agency Comment Spec In Lab Morgan BROWN HEMATOLOGY ORDERABLES Performing Organization Address City/State/[place] [address] (ABNORMAL) Hemogram (12/10/2021 4:25 AM EDT) Analysis Performed At Patho logist Time Signature WBC 9.4 4.0 - 9.5 [facility] x[facility](3[facility] LABORATORY RBC 3.81 (L) 4.58 - [facility] 5.54 [facility] x10(6)/[facility] LABORATORY Hemoglobin 11.1 (L) 13.7 - [facility] 16.5 g/dL [facility] LABORATORY Hematocrit 34.0 (L) 40.5 - [facility] 48.5 % [facility] LABORATORY MCV 89.2 82.9 - [facility] 93.1 [facility] LABORATORY MCH 29.1 27.5 - [facility] 32.1 pg [facility] LABORATORY MCHC 32.6 32.0 - [facility] 35.7 g/dL [facility] LABORATORY Platelets 183 145 - 357 [facility] x10(3)/[facility] LABORATORY RDWSD 49.9 (H) 36.0 - [facility] 45.0 [facility] LABORATORY RDWCV 15.2 (H) 11.4 - [facility] SU 13.8 % [facility] LABORATORY MPV 9.8 7.6 - 12.9 [facility] LABORATORY nRBC % Auto 0.0 % [facility] LABORATORY nRBC Abs Auto 0.000 0.000 - [facility] 0.000 [facility] x10(3)/[facility] LABORATORY Specimen Anatomical Collection Method Collection Time Receive d Time (Source) Location / / Volume Laterality Blood 12/10/2021 4:25 AM 2 4:34 EDT AM EDT Resulting Agency Comment Spec In Lab Morgan BROWN HEMATOLOGY ORDERABLES Performing Organization Address City/State/[place] [address] (ABNORMAL) Prothrombin Time (12/10/2021 4:25 AM EDT) athologist Signature PT 20.0 (H) 9.4 - 12.5 [facility] LABORATORY INR 1.7 [place] Organization Address City/State/[place] [address] (ABNORMAL) BMP w/fasting Glucose (12/10/2021 4:25 AM EDT) athologist Signature Glucose 210 (H) 65 - 99 [facility] Fasting mg/dL [facility] LABORATORY Comment: ?Fasting* Glucose Interpretive [...] BUN 54 (H) 10 - 20 mg/dL [facility] LABORATORY Creatinine 1.52 (H) 0.80 - 1.50 mg/dL [facility] LABORATORY Sodium 140 135 - 145 mmol/L [facility] LABORATORY Potassium 3.9 3.5 - 5.0 mmol/L [facility] LABORATORY [...] - 15 mmol/L [facility] LABORATORY Calcium 8.0 (L) 8.5 - 10.5 mg/dL [facility] [...] Organization Address City/State/Z[place] [address] Magnesium (12/10/2021 4:25 AM EDT) athologist Signature Magnesium 0.95 0.69 - 1.07 [facility] mmol/L [facility] LABORATORY Specimen Anatomical Collection Method Collection Time Receive d Time (Source) Location / / Volume Laterality Blood 12/10/2021 4:25 AM 2 4:34 EDT AM EDT Resulting Agency Comment Spec In Lab Iker Cuevas MD CHEMISTRY ORDERABLES Performing Organization Address City/State/[place] [address] POCT Glucose (12/10/2021 1:58 AM EDT) athologist Signature POC Glucose 164 65 - 199 [facility] mg/dL [facility] LABORATORY [...] Address City/State/[place] [address] (ABNORMAL) POCT Glucose (12/09/2021 9:02 PM EDT) athologist Signature POC Glucose 313 (H) 65 - 199 [facility] mg/dL [facility] LABORATORY [...] Address City/State/[place] [address] Heparin (unfractionated) Level (12/09/2021 7:30 PM EDT) athologist Signature Heparin UFH 0.48 IU/mL [facility] LABORATORY Comment: Heparin (anti-Xa) levels [...] Organization Address City/State/[place] [address] (ABNORMAL) Basic Metabolic Panel (non-fasting) (12/09/2021 7:30 PM EDT) P athologist Signature Glucose Lvl 372 (H) 65 - [address] [facility] mg/dL [facility] LABORATORY Comment: Diabetes: >=200 mg/dL plus symp toms BUN 56 (H) 10 - 20 mg/dL [facility] LABORATORY Creatinine 1.75 (H) 0.80 - [...] 10.5 mg/dL [facility] LABORATORY Estimated GFR 37 (L) >=60 [...] Address City/State/[place] [address] (ABNORMAL) POCT Glucose (12/09/2021 6:34 PM EDT) P athologist Signature POC Glucose 408 (H) 65 - [address] [facility] mg/dL [facility] [...] Address City/State/[place] [address] (ABNORMAL) POCT Glucose (12/09/2021 6:32 PM EDT) athologist Signature POC Glucose 356 (H) 65 - 199 [facility] mg/dL [facility] LABORATORY [...] Address City/State/[place] [address] (ABNORMAL) POCT Glucose (12/09/2021 4:19 PM EDT) athologist Signature POC Glucose 347 (H) 65 - 199 [facility]/dL [facility] LABORATORY Comment: Supplemental ranges: <140 mg/dL before meals <180 mg/dL all other times of the day Specimen Anatomical Collection Method Collection Time Receive d Time (Source) Location / / Volume Laterality Blood 12/09/2021 4:19 PM 2 4:19 EDT PM EDT Iker Cuevas MD POINT OF CARE TEST ORDERABLE S Performing Organization Address City/[facility]/[place] [address] Heparin (unfractionated) Level (12/09/2021 1:29 PM EDT) athologist Signature Heparin UFH 0.42 IU/mL [facility] LABORATORY Comment: Heparin (anti-Xa) levels [...] Cuevas MD HEMATOLOGY ORDERABLES Performing Organization Address City/[facility]/[place] [address] (ABNORMAL) POCT Glucose (12/09/2021 12:02 PM EDT) P athologist Signature POC Glucose 235 (H) 65 - 199 [facility] mg/dL [facility] LABORATORY Comment: Supplemental ranges: <140 mg/dL before meals <180 mg/dL all other times of the day Specimen Anatomical Collection Method Collection Time Receive d Time (Source) Location / / Volume Laterality Blood 12/09/2021 12:02 12/09/2021 PM EDT 12:02 PM EDT Iker Cuevas MD POINT OF CARE TEST ORDERABLE S Performing Organization Address City/[facility]/[place] [address] (ABNORMAL) POCT Glucose (12/09/2021 9:44 AM EDT) P athologist Signature POC Glucose 214 (H) 65 - 199 [facility] mg/dL [facility] LABORATORY Comment: Supplemental ranges: <140 mg/dL before meals <180 mg/dL all other times of the day Specimen Anatomical Collection Method Collection Time Receive d Time (Source) Location / / Volume Laterality Blood 12/09/2021 9:44 AM 2 9:44 EDT AM EDT Iker Cuevas MD POINT OF CARE TEST ORDERABLE S Performing Organization Address City/[facility]/[place] [address] EKG 12 Lead (12/09/2021 7:57 AM EDT) Component Value Ref Range Test Analysis Performed Pathologis t Method Time At Signature Ventricular rate 101 BPM MUSE SYSTEM Atrial Rate 101 BPM MUSE SYSTEM P-R Interval 150 ms MUSE SYSTEM QRS Duration 112 ms MUSE SYSTEM Q-T Interval 364 ms MUSE SYSTEM QTC Calculated 471 ms MUSE SYSTEM (Bezet) Calculated P Mildred 59 degrees MUSE SYSTEM Calculated R Mildred -42 degrees MUSE SYSTEM Calculated T Mildred 102 degrees MUSE SYSTEM INTERPRETATION Sinus tachycardia Occasional Premature ventricular com plexes MUSE SYSTEM Left axis deviation 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) Abnormal ECG When compared with ECG of 08-DEC-2021 16:40, Premature ventricular complexes are now Present Confirmed by MD Fernandez Danette ([id number]) on 12/10/2021 4:55:06 PM Specimen Anatomical Collection Method Collection Time Receive d Time (Source) Location / / Volume Laterality 12/09/2021 7:57 AM 2 4:55 EDT PM EDT Iker Cuevas MD ECG ORDERABLES Performing Organization Address City/State/ZIP Code Phon e Number MUSE SYSTEM (ABNORMAL) POCT Glucose (12/09/2021 7:28 AM EDT) athologist Signature POC Glucose 263 (H) 65 - [address] [facility] mg/dL [facility] [...] Address City/State/[place] [address] (ABNORMAL) Hemoglobin A1c (12/09/2021 6:18 AM EDT) Analysis Performed At Patho logist Time Signature Hemoglobin A1C 7.4 (H) 4.3 - 5.6 [facility] [...] Avg Gluc See note mg/dL [facility] Comment: Estimated Average Glucose [...] hemoglobinopathies. Additional resources are available on [facility] ADA website. Macario HAMMOND, Ruthann J, Deysi R, et al. ??Tr anslating the A1C assay into estimated average glucose values. ??Diabetes Care 2008:31(8):4468-9803. Specimen Anatomical Collection Method Collection Time Receive d Time (Source) Location / / Volume Laterality Blood Venous Draw / 12/09/2021 6:18 AM 12/10/19 22 Unknown EDT 12:24 PM EDT Resulting Agency Comment Spec In Lab Migdalia BROWN CHEMISTRY ORDERABLES Performing Organization Address City/State/ZIP Code [place] [address] (ABNORMAL) Prothrombin Time (12/09/2021 6:18 AM EDT) athologist Signature PT 26.6 (H) 9.4 - 12.5 [facility] LABORATORY INR 2.3 [place] Migdalia BROWN HEMATOLOGY ORDERABLES Performing Organization Address City/[facility]/[place] [address] Heparin (unfractionated) Level (12/09/2021 6:18 AM EDT) athologist Signature Heparin UFH 0.24 IU/mL [facility] LABORATORY Comment: Heparin (anti-Xa) levels [...] Comment Spec In Lab Ikre Cuevas MD HEMATOLOGY ORDERABLES Performing Organization Address City/[facility]/[place] [address] (ABNORMAL) Differential, Automated (12/09/2021 6:18 AM EDT) [facility] Method Time Signature Neutrophils % 91.5 % [facility] LABORATORY Neutr Abs (ANC) 15.78 (H) 1.70 - [facility] 6.10 [facility] x10(3)/[facility] LABORATORY Lymphocytes % 2.9 % [facility] LABORATORY Lymphocytes Abs 0.5 (L) 0.9 - 3.2 [facility] x10(3)/[facility] LABORATORY Monocytes % 4.9 % [facility] LABORATORY Monocyte Abs 0.8 0.3 - 0.9 [facility] x10(3)/[facility] LABORATORY Eosinophils % 0.0 % [facility] LABORATORY Eosinophils Abs 0.0 0.0 - 0.4 [facility] x10(3)/[facility] LABORATORY Basophils % 0.2 % [facility] LABORATORY Basophils Abs 0.0 0.0 - 0.1 [facility] x10(3)/[facility] LABORATORY Immature Gran % 0.50 % WHITE [...] Gran Abs 0.09 (H) 0.00 - 0.04 x10(3)/[facility] LABORATORY Specimen Anatomical Collection Method Collection Time Receive d Time (Source) Location / / Volume Laterality Blood 12/09/2021 6:18 AM 6:33 EDT AM EDT Resulting Agency Comment Spec In Lab Morgan BROWN HEMATOLOGY ORDERABLES Performing Organization Address City/State/ZIP Code Phon e Number [place] [phone]OS[address] LAB[address]ORY Drive (ABNORMAL) Hemogram (12/09/2021 6:18 AM EDT) Analysis Performed At Patho logist Time Signature WBC 17.2 (H) 4.0 - 9.5 [facility] x10(3)/[facility] LABORATORY RBC 4.32 (L) 4.58 - [facility] 5.54 [facility] x10(6)/[facility] LABORATORY Hemoglobin 12.6 (L) 13.7 - [facility] 16.[facility] g/dL [facility] LABORATORY Hematocrit 38.9 (L) 40.5 - [facility] 48.5 % [facility] LABORATORY MCV 90.0 82.9 - [facility] 93.1 [facility] LABORATORY MCH 29.2 27.5 - [facility] 32.1 pg [facility] LABORATORY MCHC 32.4 32.0 - [facility] 35.7 g/dL [facility] LABORATORY Platelets 193 145 - 357 [facility] x10(3)/[facility] LABORATORY RDWSD 50.4 (H) 36.0 - [facility] 45.0 [facility] LABORATORY RDWCV 15.2 (H) 11.4 - [facility] 13.8 % [facility] LABORATORY MPV 9.5 7.6 - 12.9 [facility] LABORATORY nRBC % Auto 0.0 % [facility] LABORATORY nRBC Abs Auto 0.000 0.000 - [facility] 0.000 [facility] x10(3)/[facility] LABORATORY Specimen Anatomical Collection Method Collection Time Receive d Time (Source) Location / / Volume Laterality Blood 12/09/2021 6:18 AM 6:33 EDT AM EDT Resulting Agency Comment Spec In Lab Morgan RBOWN HEMATOLOGY ORDERABLES Performing Organization Address City/State/[place] [address] Lipid Panel (Reflex Direct LDL) (12/09/2021 6:18 AM EDT) P athologist Signature Chol, Total 105 mg/dL [facility] LABORATORY Comment: Lower Risk: <200 mg/dL Average Risk: 200-239 mg/dL Higher Risk: >ry=246 mg/dL Triglycerides 133 mg/dL [facility] LABORATORY Comment: Average Risk/Lower Risk: <150 mg/dL Borderline High Risk: 150-199 mg/dL High Risk: 200-499 mg/dL Very High Risk: >yl=641 mg/dL HDL 42 mg/dL [facility] LABORATORY Comment: Males: ?? Higher Risk: <40 mg/dL Females: ?? Higher Risk: <50 mg/dL LDL Cholesterol 36 mg/dL [facility] LABORATORY Comment: Lowest Risk: <100 mg/dL Lower Risk: 100-129 mg/dL Borderline High Risk: 130-159 mg/dL High Risk: 160-189 mg/dL Very High Risk: >uo=016 mg/dL Chol/HDL Ratio 2.5 ratio [facility] LABORATORY Lipid Interpretation See Note [facility] LABOR[facility]ORY Comment: Lipid management should be guided by a p atient? s ASCVD risk, goals and preferences. ACC/AHA Guidelines recommend high intens ity statin if clinical ASCVD or LDL greater than or equal to 190 mg/dL. http://Copious/DOQ-GLV-Hnamuqple Adults aged 40-75 with LDL 70-189 mg/dL should have their 10 year ASCVD risk estimated with the ACC/AHA ASCVD risk es timator http://tools.acc.org/DMGKO-Jxvw-Uafbctmr r/ Statin should be discussed if risk [...] Organization Address City/State/[place] [address] TSH (12/09/2021 6:18 AM EDT) athologist Signature TSH 1.60 0.27 - 4.20 [facility] mcIU/mL [facility] LABORATORY Comment: Reference Interval (mcIU/mL): Females: ??First Trimester: 0.23-3.88 ??Second Trimester: 0.22-3.90 ??Third Trimester: 0.44-4.66 Specimen Anatomical Collection Method Collection Time Receive d Time (Source) Location / / Volume Laterality Blood 12/09/2021 6:18 AM 2 6:33 EDT AM EDT Resulting Agency Comment Spec In Lab Iker Cuevas MD CHEMISTRY ORDERABLES Performing Organization Address City/[facility]/ZIP Code Phon e Number [address] Hepatic Function Panel (12/09/2021 6:18 AM EDT) athologist [facility] Total Protein 7.3 6.1 - 8.0 [facility] g/dL [facility] LABORATORY Albumin 4.2 3.2 - 5.2 [facility] g/dL [facility] LABORATORY AST 25 0 - 39 [facility] unit/L [facility] LABORATORY ALT 15 0 - 55 [facility] unit/L [facility] LABORATORY Alk Phos 75 40 - 130 [facility] unit/L [facility] LABORATORY Total 1.1 0.2 - 1.3 [facility] Bilirubin mg/dL [facility] LABORATORY Bili, Direct 0.2 0.0 - 0.3 [facility] mg/dL [facility] LABORATORY Specimen Anatomical Collection Method Collection Time Receive d Time (Source) Location / / Volume Laterality Blood 12/09/2021 6:18 AM 2 6:33 EDT AM EDT Resulting Agency Comment Spec In Lab Iker Cuevas MD CHEMISTRY ORDERABLES Performing Organization Address City/[facility] Phon e Number [address] (ABNORMAL) BMP w/fasting Glucose (12/09/2021 6:18 AM EDT) athologist Signature Glucose 235 (H) 65 - [address] [facility] Fasting mg/dL [facility] LABORATORY Comment: ?Fasting* Glucose Interpretive [...] BUN 49 (H) 10 - 20 mg/dL [facility] LABORATORY Creatinine 1.33 0.80 - 1.50 [...] - 15 mmol/L [facility] LABOR[facility]ORY Calcium 8.8 8.5 - 10.5 [...] Cuevas MD CHEMISTRY ORDERABLES Performing Organization Address City/[facility]/ZIP Code Phon e Number [address] Magnesium (12/09/2021 6:18 AM EDT) athologist Signature Magnesium 0.81 0.69 - 1.07 [facility] mmol/L [facility] LABORATORY Specimen Anatomical Collection Method Collection Time Receive d Time (Source) Location / / Volume Laterality Blood 12/09/2021 6:18 AM 2 6:33 EDT AM EDT Resulting Agency Comment Spec In Lab Iker Cuevas MD CHEMISTRY ORDERABLES Performing Organization Address City/[facility] [place] [address] (ABNORMAL) Troponin (12/09/2021 6:18 AM EDT) athologist Signature Troponin-T 1.13 (H) 0.00 - [facility] 0.00 ng/mL [facility] LABORATORY Comment: The 99th percentile [...] additional sample may be indicated. Reference: [place] Definition of Myocardial Infarction. Journal of the [place] [employer] 2012;60:1581-98 Specimen Anatomical Collection Method Collection Time Receive d Time (Source) Location / / Volume Laterality Blood 12/09/2021 6:18 AM 6:33 EDT AM EDT Resulting Agency Comment Spec In Lab Iker Cuevas MD CHEMISTRY ORDERABLES Performing Organization Address City/State/ZIP Code Phon e Number [place] [phone] HOSPITAL LABORATORY Drive XR Chest One View [...] have questions please contact the health care support representative that requested your imaging first. ? [...] have questions please contact the health care support representative that requested your imaging first. Amber Sanches MD IMG DX ORDERABLES (ABNORMAL) BLOOD GAS 2 ARTERIAL (12/09/2021 5:14 AM EDT) Analysis Performed At Patho logis Time Signature pH Art 7.43 7.35 - [facility] 7.45 [facility] LABORATORY pCO2 Art 36 35 - 45 [facility] LABORATORY pO2 Art 67 (L) 85 - 104 [facility] LABORATORY HCO3 Art 23.4 20.0 - [facility] 26.0 [facility] mmol/L [facility] LABORATORY BE Art -0.9 -3.0 - 3.0 [facility] mmol/L [facility] LABORATORY Hgb Blood Gas 13.2 (L) 13.7 - [facility] 16.5 g/dL [facility] O2HB Art 91.3 (L) 94.0 - [facility] 97.0 % [facility] LABORATORY COHB Art 0.4 % [place] [...] WB 2.7 (H) 0.5 - 2.2 mmol/L [facility] LABORATORY FIO2 Art 35 % [facility] LABORATORY Flow Art 8.0 LPM [facility] LABORATORY PF Ratio Art 191 [facility] LABORATORY Specimen Anatomical Collection Method Collection Time Receive d Time (Source) Location / / Volume Laterality Blood 12/09/2021 5:14 AM 5:14 EDT AM EDT Iker Cuevas MD CHEMISTRY ORDERABLES Performing Organization Address City/State/Z[place] [address] POCT Glucose (12/09/2021 4:46 AM EDT) athologist Signature POC Glucose 198 65 - 199 [facility] SU mg/dL [facility] LABORATORY [...] Address City/State/[place] [address] (ABNORMAL) POCT Glucose (12/09/2021 3:01 AM EDT) athologist Signature POC Glucose 225 (H) 65 - 199 [facility] SU mg/dL [facility] LABORATORY Comment: Supplemental ranges: <140 mg/dL before meals <180 mg/dL all other times of the day Specimen Anatomical Collection Method Collection Time Receive d Time (Source) Location / / Volume Laterality Blood 12/09/2021 3:01 AM 2 3:01 EDT AM EDT Iker Cuevas MD POINT OF CARE TEST ORDERABLE S Performing Organization Address City/State/[place] [address] (ABNORMAL) POCT Glucose (12/08/2021 10:55 PM EDT) athologist Signature POC Glucose 327 (H) 65 - 199 [facility] mg/dL [facility] LABORATORY Comment: Supplemental ranges: <140 mg/dL before meals <180 mg/dL all other times of the day Specimen Anatomical Collection Method Collection Time Receive d Time (Source) Location / / Volume Laterality Blood 12/08/2021 10:55 12/08/2021 PM EDT 10:55 PM EDT Iker Cuevas MD POINT OF CARE TEST ORDERABLE S Performing Organization Address City/State/ZIP Code Phon e Number [place] [phone]OS[address] LAB[address] Drive Heparin (unfractionated) Level (12/08/2021 10:03 PM EDT) athologist [facility] Heparin UFH 0.18 IU/mL [facility] LABORATORY Comment: Heparin (anti-Xa) levels [...] Comment Spec In Lab Ikre Cuevas MD HEMATOLOGY ORDERABLES Performing Organization Address City/State/ZIP Code Phon e Number [address] (ABNORMAL) Troponin (12/08/2021 10:03 PM EDT) [facility]rop[facility]-T 0.92 (H) 0.[address] - [facility] 0.00 ng/mL [facility] LABORATORY Comment: The 99th percentile [...] additional sample may be indicated. Reference: [place] Definition of Myocardial Infarction. Journal of the [place] [employer] 2012;60:1581-98 Specimen Anatomical Collection Method Collection Time Receive d Time (Source) Location / / Volume Laterality Blood 12/08/2021 10:03 12/08/2021 PM EDT 10:31 PM EDT Resulting Agency Comment Spec In Lab Iker Cuevas MD CHEMISTRY ORDERABLES Performing Organization Address City/[facility]/[place] [address] (ABNORMAL) POCT Glucose (12/08/2021 8:22 PM EDT) athologist Signature POC Glucose 429 (H) 65 - 199 [facility] mg[facility]dL [facility] LABORATORY Comment: Supplemental ranges: <140 mg/dL before meals <180 mg/dL all other times of the day Specimen Anatomical Collection Method Collection Time Receive d Time (Source) Location / / Volume Laterality Blood 12/08/2021 8:22 PM 8:22 EDT PM EDT Iker Cuevas MD POINT OF CARE TEST ORDERABLE S Performing Organization Address City/State/[place] [address] (ABNORMAL) POCT Glucose (12/08/2021 7:06 PM EDT) P athologist Signature POC Glucose 442 (H) 65 - 199 [facility] mg/dL [facility] LABORATORY Comment: Supplemental ranges: <140 mg/dL before meals <180 mg/dL all other times of the day Specimen Anatomical Collection Method Collection Time Receive d Time (Source) Location / / Volume Laterality Blood 12/08/2021 7:06 PM 2 7:06 EDT PM EDT Iker Cuevas MD POINT OF CARE TEST ORDERABLE S Performing Organization Address City/State/ZIP Code Phon e Number [address] Magnesium (12/08/2021 6:02 PM EDT) athologist Signature Magnesium 0.86 0.69 - 1.07 [facility] mmol/L [facility] LABORATORY Specimen Anatomical Collection Method Collection Time Receive d Time (Source) Location / / Volume Laterality Blood 12/08/2021 6:02 PM 2 6:36 EDT PM EDT Resulting Agency Comment Spec In Lab Iker Cuevas MD CHEMISTRY ORDERABLES Performing Organization Address City/[facility]/[place] [address] (ABNORMAL) Basic Metabolic Panel (non-fasting) (12/08/2021 6:02 PM EDT) athologist Signature Glucose Lvl 392 (H) 65 - [address] [facility] mg/dL [facility] LABORATORY Comment: Diabetes: >=200 mg/dL plus symp toms BUN 41 (H) 10 - 20 mg/dL [facility] LABORATORY Creatinine 1.44 0.80 - 1.50 [...] Gap 16 (H) 5 - 15 mmol/L [facility] [...] Organization Address City/State/ZIP Code Phon e Number [place] [id number] HOSPITAL LAB[address]ORY Drive (ABNORMAL) Differential, Automated (12/08/2021 6:02 PM EDT) [facility] Method Time Signature Neutrophils % 89.5 % [facility] LABORATORY Neutr Abs (ANC) 13.97 (H) 1.70 - [facility] 6.10 [facility] x10(3)/[facility] L LABORATORY Lymphocytes % 3.7 % [facility] LABORATORY Lymphocytes Abs 0.6 (L) 0.9 - 3.2 [facility] x10(3)/[facility] LABORATORY Monocytes % 6.1 % [facility] LABORATORY Monocyte Abs 1.0 (H) 0.3 - 0.9 [facility] x10(3)/[facility] LABORATORY Eosinophils % 0.0 % [facility] LABORATORY Eosinophils Abs 0.0 0.0 - 0.4 [facility] x10(3)/[facility] LABORATORY Basophils % 0.2 % [facility] LABORATORY Basophils Abs 0.0 0.0 - 0.1 [facility] x10(3)/[facility] LABORATORY Immature Gran % 0.50 % WHITE [...] Gran Abs 0.08 (H) 0.00 - 0.04 x10(3)/[facility] LABORATORY Specimen Anatomical Collection Method Collection Time Receive d Time (Source) Location / / Volume Laterality Blood 12/08/2021 6:02 PM 6:36 EDT PM EDT Resulting Agency Comment Spec In Lab Morgan BROWN HEMATOLOGY ORDERABLES Performing Organization Address City/State/Z[place] [address] (ABNORMAL) Hemogram (12/08/2021 6:02 PM EDT) Analysis Performed At Patho logist Time Signature WBC 15.6 (H) 4.0 - 9.5 [facility] x10(3)/[facility] LABORATORY RBC 4.05 (L) 4.58 - [facility] 5.54 [facility] x10(6)/[facility] LABORATORY Hemoglobin 11.8 (L) 13.7 - [facility] 16.5 g/dL [facility] LABORATORY Hematocrit 35.8 (L) 40.5 - [facility] 48.5 % [facility] LABORATORY MCV 88.4 82.9 - [facility] 93.1 [facility] LABORATORY MCH 29.1 27.5 - [facility] 32.1 pg [facility] LABORATORY MCHC 33.0 32.0 - [facility] 35.7 g/dL [facility] LABORATORY Platelets 178 145 - 357 [facility] x10(3)/[facility] LABORATORY RDWSD 49.3 (H) 36.0 - [facility] 45.0 [facility] LABORATORY RDWCV 15.1 (H) 11.4 - [facility] 13.8 % [facility] LABORATORY MPV 10.4 7.6 - 12.9 [facility] fL [facility] LABORATORY nRBC % Auto 0.0 % [facility] LABORATORY nRBC Abs Auto 0.000 0.000 - [facility] 0.000 [facility] x10(3)/[facility] LABORATORY Specimen Anatomical Collection Method Collection Time Receive d Time (Source) Location / / Volume Laterality Blood 12/08/2021 6:02 PM 6:36 EDT PM EDT Resulting Agency Comment Spec In Lab Morgan BROWN HEMATOLOGY ORDERABLES Performing Organization Address City/State/Z[place] [address] (ABNORMAL) Troponin (12/08/2021 6:02 PM EDT) P athologist Signature Troponin-T 0.89 (H) 0.00 - [facility] 0.00 ng/mL [facility] LABORATORY Comment: The 99th percentile [...] additional sample may be indicated. Reference: [place] Definition of Myocardial Infarction. Journal of the [place] [employer] 2012;60:1581-98 Specimen Anatomical Collection Method Collection Time Receive d Time (Source) Location / / Volume Laterality Blood 12/08/2021 6:02 PM 2 6:36 EDT PM EDT Resulting Agency Comment Spec In Lab Iker Cuevas MD CHEMISTRY ORDERABLES Performing Organization Address City/State/ZIP Code [place] [address] COVID-19 PCR (12/08/2021 5:00 PM EDT) [facility] Method Time Signature SARS-CoV-2 Not Detected Not Detected [facility] RNA PCR [facility] Comment: This result should [...] using the Simplexa COVID-19 Direct Assay by [employer] as authorized by the FDA issued Emergency [...] of Pathology and Laboratory Medicine at [facility], certified under the Clinical Laboratory Improvement Amendmen [...] clinical management guidance information are available at [facility] CDC Coronavirus Disease 2019 (COVID-19) webpage under Information fo r Healthcare Professionals (https://www.cdc.gov/coronavirus/2019-nc ov/hcp/index.html). Additional information about this and ot her EUA tests can be found in provider and patient fact sheets at the following FDA website: https://www.fda.gov/medical-devices/lhvwrhorerz-hnpwqxg-0812-qzszh-83-hrxywhedx- ycb-aomcurcvnrqnzb-bpzwbbo-devices/gdznx-yqsbmfbyexg-aeol SARS-CoV-2 Source IMPLEMENTATION DIRECTOR Swab [facility] LABORATORY Specimen (Source) Anatomical Collection Method Collection Time Re ceived Time Location / / Volume Laterality Nasopharyngeal Swab 12/08/2021 5:00 12/08 PM EDT 6:03 PM EDT Comment: Symptoms->Surveillance Resulting Agency Comment Spec In Lab Iker Cuevas MD MICROBIOLOGY - GENERAL ORDER [place] Performing Organization Address City/State/Z[place] [address] EKG 12 Lead (12/08/2021 4:40 PM EDT) Component Value Ref Range Test Analysis Performed Pathologis t Method Time At Signature Ventricular rate 78 BPM MUSE SYSTEM Atrial Rate 78 BPM MUSE SYSTEM P-R Interval 152 ms MUSE SYSTEM QRS Duration 96 ms MUSE SYSTEM Q-T Interval 396 ms MUSE SYSTEM QTC Calculated 451 ms MUSE SYSTEM (Bezet) Calculated P Mildred 44 degrees MUSE SYSTEM Calculated R Mildred -31 degrees MUSE SYSTEM Calculated T Mildred 124 degrees MUSE SYSTEM INTERPRETATION Normal sinus [...] Glucose 400 (H) 65 - [address] [facility] mg/dL [facility] [...] Address City/State/[place] [address] documented in this encounter [...] Coronary atherosclerosis of unspecified type of vessel, [place] or graft Cardiomyopathy, ischemic Other specified forms [...] furosemide (Lasix) (10 mg/mL) injection 80 mg ([facility] ED) 174 (Given - Provider: Emma Garcia [...] 0735 (Given - Provider : Emma Garcia, VAMIS)0805 (SEP Hold - Provider: Admin Adt - [...] Emma Garcia RN) 0829 (Given - Provider: iLlliana friedman RN) 25 mg, Oral, DAILY, First [...] solution 1 mg( Linked Group 2) 804 ([facility] Hold - Provider: Admin Adt - [...] (Glutose) 40% oral geL(Linked Group 2) 804 ([facility] Hold - Provider: Admin Adt - Reason: Transfer to a Procedural area)1229 ([facility] Unhold - Provider: Admin Adt) 15-30 [...] (Intra-Procedure), Routine niCARdipine (Cardene) (100 mcg/mL) dilution (RAILROAD [employer]) (CANCELED) 1030 (Given - Provider: Vitaliy Nobles [...] episode. & nbsp; For persistent hypoglycemia, con blender longer-acting treatment for the duration of the [...] in this encounter Care Teams Corrosion Control Specialist Relationship Specialty Start Date End Date Lovely Vicente MD PCP - General 04/16/[address] [place] [address] documented as of this encounter
--- OUTSIDE RECORDS SUMMARY | 2022-03-13 10:54 | XMS_ITS | Encounter Summary ---
:1945 Author Organization [place] [address] Care Team Providers Name Role Phone Lovely Vicente MD Primary Care Provider Reason for Referral Diagnostic Test (Routine) - Closed Specialty Diagnoses / Procedures Referred By Contact Refer red To Contact Cardiology Diagnoses Chronic systolic heart failure Danette Maxwell APRN [facility] Non-Inv Card Lab Procedures Echocardiogram Transthoracic(Leb) [facility] [place] [address] [place] [address] Referral ID Status Reason Start Date Expiration Date Visits V isits Requested Authorized [id number] Closed Specialty 07/17/2019 09/14/2019 1 1 Service Requested Reason for Visit Diagnostic Test (Routine) - Closed Specialty Diagnoses / Procedures Referred By Contact Refer red To Contact Cardiology Diagnoses Chronic systolic heart failure Danette Maxwell APRN [facility] Non-Inv Card Lab Procedures Echocardiogram Transthoracic(Leb) [facility] [place] [address] [place] [address] Referral ID Status Reason Start Date Expiration Date Visits V isits Requested Authorized [id number] Closed Specialty 07/17/2019 09/14/2019 1 1 Service Requested Encounter Details Date Type Department Care Team Description 07/28/2019 Hospital Encounter Non-Invasive Chronic s ystolic heart [place] [address] Social History Tobacco Use Types Packs/Day [...] gauge x 4 times daily. 10/08 Needle meTOPROLOL succinate Take 25 mg by [...] Vitaliy Nobles MD [facility] CARDIOLOGY [place], [place] [address] (Wo rk) 05/28/2022 Appointment Cardiology Zulma Dolan MD [facility] [place], [place] [address] (Wo rk) 05/28/2022 Laboratory Appointment Lab 05/28/2022 Office Visit Cardiology Zulma Dolan MD [facility] [address] Liz Poole PA [facility] [place] [address] 06/10/2022 Office Visit Dermatology Laura Scherer MD [facility] DR TEJA GR-DERMAT [place], [place] [address] (Wo rk) documented as of this encounter Procedures Procedure Name Priority Date/Time Associated Comments Diagnosis ECHOCARDIOGRAM COMPLETE Routine 07/28/2019 8:19 AM Chronic sys tolic Results for this W CONTRAST EST heart failure procedure are in the results section. documented in this encounter Results ECHOCARDIOGRAM COMPLETE W CONTRAST (07/28/2019 8:19 AM EST) P athologist Signature EF 40 Coffee and Power SYSTEM Specimen (Source) Anatomical Location Collection Method / Collectio n Time Received Time / Laterality Volume 07/28/2019 Narrative [facility] - 07/28/2019 8:38 AM EST Procedure: ?Transthoracic Echocardiogram Patient: ?NATALYA Mccollum ? (Age): 1945(74y) Med Rec#: ? [id number] ?Sex: ?M ? Site Loc: ? [facility] ?Ht / Wt: ??172(cm)/81(kg) Pt. Loc: ?Echo Lab ?BSA: ?1.94 Study Date: ?? 07/28/2019 ?Pt. Type: Outpatient Tape: ? Referring: MARY ELLEN Reading: Ifeanyi Truong ([id number]) Machine Binder Stripper: Fadumo Flanagan RDCS, FASE Diagnosis: *Chronic systolic [...] E-wave Vmax ?1 ?m/sec ? MV deceleration kewc484.5 ? msec ? MV A-wave Vmax ?1 [...] ? Pulmonic Valve/Qp:Qs ?Value ?Units (Range) ? NV end-diastolic Vma1.1 ?m/sec ? Wall Motion: Segment Name ?Rest ? Base-Anteroseptal ?? Normal ? Base-Anterior ? Normal ? Base-Anterolateral ??Normal ? Base-Posterolateral Normal ? Base-Inferior ? Akinetic ? Base-Inferoseptal ?? Normal ? Mid-Anteroseptal ?Normal ? Mid-Anterior ?Hypokinetic ? Mid-Anterolateral ?? Normal ? Mid-Posterolateral ??Normal ? Mid-Inferior ?Hypokinetic ? Mid-Inferoseptal ?Normal ? [place]-Septal ? Normal ? [place]-Anterior ? Hypokinetic ? [place]-Lateral ?Normal ? [place]-Inferior ? Akinetic ? [place]-Tip ?Hypokinetic ? This report has been electronically sign ed by: _ Ifeanyi Truong M.D. ? 07/28/2019 0 8:38:01 Images reviewed and interpretation verif ied [facility] Cardiac Ultrasound Laboratory Procedure Note Ifeanyi Truong MD - 07/28/2019Formatt ing of this note might be different from the original. Procedure: Transthoracic Echocardiogram Patient: NATALYA MCBRIDE(Age): [birth year](74y) Med Rec#: [id number] Sex: M Site Loc: [facility] Ht / Wt: 172(cm)/81(kg) Pt. Loc: Echo Lab BSA: 1.94 Study Date: 07/28/2019 Pt. Type: Outpati ent Tape: Referring: MARY ELLEN Reading: Ifeanyi Truong ([id number]) Machine Binder Stripper: Fadumo Flanagan RDCS, FASE Diagnosis: *Chronic systolic [...] MV E-wave Vmax 1 m/sec MV deceleration nbyc993.5 msec MV A-wave Vmax 1 m/sec MV [...] 0.7 ratio Pulmonic Valve/Qp:Qs Value Units (Range) NV end-diastolic Vma1.1 m/sec Wall Motion: Segment Name Rest Base-Anteroseptal Normal Base-Anterior Normal Base-Anterolateral Normal Base-Posterolateral Normal Base-Inferior Akinetic Base-Inferoseptal Normal Mid-Anteroseptal Normal Mid-Anterior Hypokinetic Mid-Anterolateral Normal Mid-Posterolateral Normal Mid-Inferior Hypokinetic Mid-Inferoseptal Normal [place]-Septal Normal [place]-Anterior Hypokinetic [place]-Lateral Normal [place]-Inferior Akinetic [place]-Tip Hypokinetic This report has been electronically sign ed by: _ Ifeanyi Truong M.D. 07/28/2019 08:38:0 1 Images reviewed and interpretation elvie hwang [facility] Cardiac Ultrasound Laboratory Danette Maxwell APRN [...] Routine documented in this encounter Care Teams Meat Carrier Relationship Specialty Start Date End Date Lovely Vicente MD PCP - General 04/16/[address] [place] [address] documented as of this encounter
--- OUTSIDE RECORDS SUMMARY | 2022-03-13 10:54 | XMS_ITS | Encounter Summary ---
:1945 Author Organization [facility] [place] [address] Care Team Providers Name Role Phone Lovely Viecnte MD Primary Care Provider Encounter Details Date Type Department Care Team Description 03/20/2021 Ancillary Procedure Radiology Library [place] [address] [place] [address] [phone] Social History Tobacco Use Types Packs/Day Years [...] MD [facility] DR TADEO [place], [place] [address] (Wo rk) 05/28/2022 Appointment Cardiology Zulma Dolan MD [facility] [address] [place], [place] [address] (Wo rk) 05/28/2022 Laboratory Appointment Lab 05/28/2022 Office Visit Cardiology Zulma Dolan MD [facility] [place] [address] Liz Poole PA [facility] [place] [address] 06/10/2022 Office Visit Dermatology Laura Scherer MD [facility] ER [address]DERMAT [place], [place] [address] (Wo rk) documented as of [...] Address City/State/ZIP Code Phon e Number RAD [place], [place] documented in this encounter Visit Diagnoses Not on filedocumented in this encounter Care Teams Digital Content Producer Relationship Specialty Start Date End Date Lovely Vicente MD PCP - General 04/16/[address] [place] [address] documented as of this encounter
--- OUTSIDE RECORDS SUMMARY | 2022-03-13 10:54 | XMS_ITS | Encounter Summary ---
:1945 Author Organization [facility] [place] [address] Care Team Providers Name Role Phone Lovely Vicente MD Primary Care Provider Reason for Visit Reason Onset Date Comments Follow-up 07/13/2018 amiodarone discontin ued Encounter Details Date Type Department Care Team Description 07/13/2018 Telephone Cardiology at [facility] Martha Comer, Follow-up (amiodarone [facility] RN discontin ued) [place] [address] Social History Tobacco Use Types Packs/Day [...] RN - 07/13/2018 8:57 AM EST Per ROUTE DELIVERY SERVICE DRIVER Hans call placed to the home number for the pt. confirmed that the pt is still taking the amiodarone. Pt is to stop the amiodarone. Pt taking it for post op a-fib, therapy was supposed to be for 30 days. Message given to his . She will give him the message and will have him call with any questions. Call placed to the [facility] pharmacy in [place] to discontinue it there as well. Med list updated. documented in this encounter Plan of Treatment Upcoming Encounters Date Type Specialty Care Team Description 03/26/2022 Office Visit Cardiology Vitaliy Nobles MD [facility] [address] [place], [place] [address] (Wo rk) 05/28/2022 Appointment Cardiology Zulma Dolan MD [facility] [place], [place] [address] (Wo rk) 05/28/2022 Laboratory Appointment Lab 05/28/2022 Office Visit Cardiology Zulma Dolan MD [facility] [place] [address] Liz Poole PA [facility] [place] [address] 06/10/2022 Office Visit Dermatology Laura Scherer MD [facility] DR TE[address] GR[address]DERMAT [place], [place] [address] (Wo rk) documented as of this encounter Visit Diagnoses Not on filedocumented in this encounter Care Teams Vocational Rehabilitation Administrator Relationship Specialty Start Date End Date Lovely Vicente MD PCP - General 04/16/[address] [place] [address] documented as of this encounter
--- OUTSIDE RECORDS SUMMARY | 2022-03-13 10:54 | XMS_ITS | Encounter Summary ---
:1945 Author Organization [facility] [place] [address] Care Team Providers Name Role Phone Lovely Vicente MD Primary Care Provider Reason for Visit Reason Onset Date Comments Other 03/24/2019 cardiac clearance ne eded Encounter Details Date Type Department Care Team Description 03/24/2019 Telephone Cardiology at [facility] Danette Maxwell, Other (cardiac [facility] DIRECTOR OF SPECIAL SERVICES clearance needed) [place] [address] CARDIOLOGY [place], [place] [address] (Wo rk) Social History Tobacco [...] AM EDT Leonela from [facility] in [place] called requesting cardiac clearance for this patient who is to have a colonoscopy on 04/04/19. He is on anticoagulation and they will need to bridge him. Their phone # [phone], fax# [phone]. Thank you. documented in this encounter Plan of Treatment Upcoming Encounters Date Type Specialty Care Team Description 03/26/2022 Office Visit Cardiology Vitaliy Nobles MD [facility] [address] [place], [place] [address] (Wo rk) 05/28/2022 Appointment Cardiology Zulma Dolan MD [facility] [place], [place] [address] (Wo rk) 05/28/2022 Laboratory Appointment Lab 05/28/2022 Office Visit Cardiology Zulma Dolan MD [facility] [place] [address] Liz Poole PA [facility] [place] [address] 06/10/2022 Office Visit Dermatology Laura Scherer MD [facility] DR [address]-DERMAT [place], [place] [address] (Wo rk) documented as of this encounter Visit Diagnoses Not on filedocumented in this encounter Care Teams Public Relations Consultant Relationship Specialty Start Date End Date Lovely Vicente MD PCP - General 04/16/[address] [place] [address] documented as of this encounter
--- OUTSIDE RECORDS SUMMARY | 2022-03-13 10:54 | XMS_ITS | Encounter Summary ---
:1945 Author Organization [facility] [place] [address] Care Team Providers Name Role Phone Lovely Vicente MD Primary Care Provider Encounter Details Date Type Department Care Team Description 07/28/2019 Office Visit Cardiology at [facility] Danette Maxwell Chronic systolic heart failu re; [facility] A, STACIE ASHD (arteriosclerotic heart disease); Drive [facility] S/P CABG x 3; [place], [place] MARIA VICTORIA (obstructive sleep apnea) on CPAP; [phone] CARDIOLOGY Mixed hyperlipidemia [phone] [place], [place] [address] Social History Tobacco Use Types [...] in this encounter Progress Notes Danette Maxwell, PATTERN CLERK - 07/28/2019 9:40 AM EST Images from [...] regurgitation present. 07/07/2019 - 07/21/2019 Zio Patch Cotton Stripper The patient had a minimum heart rate [...] K+ 4.5 today 6. Post-op atrial fibrillation [id number] (CHF, HTN, DM, vascular disease, thromboembolism) Amiodarone discontinued Continue coumadin INR managed by PCP 7. PAD 08/06/2017: Right 1st, 2nd, 3rd toe amputation 08/11/2017: Left??femoral arterial access, RLE??angiogram, Balloon angioplasty of R PT with Eleazar 2.5 x 80 10/25/2017: right popliteal-pedal bypass at [facility] 8. Hypothyrodism S/p thyroidectomy for goiter Continue [...] advised: Refer to EP (Dr. Mcelroy in [place]) 5. Heart Failure Clinic follow up scheduled for: 3 months with proBNP and BMP Danette Maxwell APRN 07/28/2019 documented in this encounter Plan of Treatment Upcoming Encounters Date Type Specialty Care Team Description 03/26/2022 Office Visit Cardiology Vitaliy Nobles MD [facility] [address] [place], [place] [address] (Wo rk) 05/28/2022 Appointment Cardiology Zulma Dolan MD [facility] [address] [place], [place] [address] (Wo rk) 05/28/2022 Laboratory Appointment Lab 05/28/2022 Office Visit Cardiology Zulma Dolan MD [facility] [place] [address] Liz Poole PA [facility] [place] [address] 06/10/2022 Office Visit Dermatology Laura Scherer MD [facility] DR [address]-DERMAT [place], [place] 0[address] (Wo rk) documented as of this encounter Results (ABNORMAL) Basic Metabolic Panel (non-fasting) (07/28/2019 8:36 AM EST) P athologist Signature Glucose Lvl 153 65 - 199 [facility] mg/dL [facility] LABORATORY Comment: Diabetes: >=200 [...] of body mass or the acutely ill. http://[employer] eGFR 81 >=60 mL/min/1.73 m?? [facility] LABORAT[facility] Comment: The eGFR was calculated using the CKD-EP I equation. As with all creatinine based estimates of kidney function, eGFR values calculated with the CKD-EPI equation are not accurate in patients wi th acute kidney failure, extremes of body mass or the acutely ill. http://[employer]/DHnkf Specimen Anatomical Collection Method Collection Time Receive d Time (Source) Location / / Volume Laterality Blood specimen 07/28/2019 8:36 AM 020 8:46 (specimen) EST AM EST Resulting Agency Comment Spec In Lab Danette Maxwell APRN CHEMISTRY ORDERABLES Performing Organization Address City/[facility]/ZIP [place] [address] (ABNORMAL) pro-Brain Natriuretic Peptide [...] Organization Address City/State/[place] [address] documented in this encounter Visit Diagnoses Diagnosis Chronic systolic heart failure ASHD (arteriosclerotic heart disease) Coronary atherosclerosis of unspecified type of vessel, [place] or graft S/P CABG x 3 Postsurgical aortocoronary bypass status MARIA VICTORIA (obstructive sleep apnea) on CPAP Obstructive sleep apnea (adult) (pediatr ic) Mixed hyperlipidemia documented in this encounter Care Teams Gunstock Spray Unit Feeder Relationship Specialty Start Date End Date Lovely Vicente MD PCP - General 04/16/[address] [place] [address] documented as of this encounter
--- OUTSIDE RECORDS SUMMARY | 2022-03-13 10:54 | XMS_ITS | Encounter Summary ---
:1945 [place] [address] Care Team Providers Name Role Phone Lovely Vicente MD Primary Care Provider Encounter Details Date Type Department Care Team Description 08/15/2018 Laboratory Appointment Lab 3L [facility] [place] [address] Social History Tobacco Use Types Packs/Day [...] Nobles MD [facility] DR [place]LE [place], [place] [address] (Wo rk) 05/28/2022 Appointment Cardiology Zulma Dolan MD [facility] [address] [place] [address] (Wo rk) 05/28/2022 Laboratory Appointment Lab 05/28/2022 Office Visit Cardiology Zulma Dolan MD [facility] [place] [address] Liz Poole PA [facility] [place] [address] 06/10/2022 Office Visit Dermatology Laura Scherer MD [facility] ER DR [address]-DERMAT [place], [place] [address] (Wo rk) documented as of this encounter Procedures Procedure Name Priority Date/Time Associated Diagnosis Comme nts PROTHROMBIN TIME Routine 08/15/2018 8:04 AM Resul ts for this EST procedure are i n the results section. documented in this encounter Results (ABNORMAL) Prothrombin Time (08/15/2018 8:04 AM EST) P athologist Signature PT 24.0 (H) 9.4 - 12.5 [facility] LABORATORY INR 2.1 [facility] [...] Organization Address City/State/[place] [address] documented in this encounter Visit Diagnoses Not on filedocumented in this encounter Care Teams Wellness Consultant Relationship Specialty Start Date End Date Lovely Vicente MD PCP - General 04/16/[address] [place] [address] documented as of this encounter
--- OUTSIDE RECORDS SUMMARY | 2022-03-13 10:54 | XMS_ITS | Encounter Summary ---
:1945 Author Organization [facility] [place] [address] Care Team Providers Name Role Phone Lovely Vicente MD Primary Care Provider Reason for Referral Diagnostic Test (Routine) - Specialty Diagnoses / Procedures Referred By Contact Refer red To Contact Cardiology Diagnoses Chronic systolic heart failure Danette Maxwell APRN [facility] Non-Inv Card Lab Procedures Echocardiogram Transthoracic(Leb) [facility] [place] [phone] [place] [address] Referral ID Status Reason Start Date Expiration Visits Visits Date Requested Authorized [id number] Specialty 08/15/2018 08/15/2018 1 1 Service Requested Reason for Visit Diagnostic Test (Routine) - Specialty Diagnoses / Procedures Referred By Contact Nawaf owen To Contact Cardiology Diagnoses Chronic systolic heart failure Danette Maxwell APRN [facility] Non-Inv Card Lab Procedures Echocardiogram Transthoracic(Leb) [facility] [place] [address] [place] [address] Referral ID Status Reason Start Date Expiration Visits Visits Date Requested Authorized [id number] Specialty 08/15/2018 08/15/2018 1 1 Service Requested Encounter Details Date Type Department Care Team Description 08/15/2018 Hospital Encounter Non-Invasive Danette Maxwell Chron ic systolic Cardiology Lab Barbara Gomes APRN heart failure [facility] [place] [address] [place], [place] [phone] [address] (Work) [phone] Social History Tobacco Use Types Packs/Day Years [...] Nobles MD [facility] CARDIOLOGY [place], [place] 0[address] (Wo rk) 05/28/2022 Appointment Cardiology Zulma Dolan MD [facility] [place], [place] [address] (Wo rk) 05/28/2022 Laboratory Appointment Lab 05/28/2022 Office Visit Cardiology Zulma Dolan MD [facility] [place] [address] Liz Poole PA [facility] [place] [address] 06/10/2022 Office Visit Dermatology Laura Scherer MD [facility] DR [address]-DERMAT [place], [place] [address] (Wo rk) documented as of [...] Mccollum ? (Age): 1945(73y) Med Rec#: ? [id number] ?Sex: ?M ? Site Loc: ? [facility] ?Ht / Wt: ??172(cm)/81(kg) Pt. Loc: ?Echo Lab ?BSA: ?1.94 Study Date: ?? 08/15/2018 ?Pt. Type: Outpatient Tape: ? Referring: MARY ELLEN Reading: Scott Ortega ([id number]) Delineator: Laura Sargent Diagnosis: *Chronic systolic (congestive) heart [...] E-wave Vmax ?1.2 ?m/sec ? MV deceleration bgiv977.4 ? msec ? MV A-wave Vmax ?0.7 [...] ? Mid-Inferior ?Hypokinetic ? Mid-Inferoseptal ?Hypokinetic ? [place]-Septal ? Akinetic ? [place]-Anterior ? Hypokinetic ? [place]-Lateral ?Akinetic ? [place]-Inferior ? Hypokinetic ? [place]-Tip ?Akinetic ? This report has been electronically sign ed by: _ Scott Ortega M.D. ? 08/15/2018 08:17:26 Images reviewed and interpretation verif iewanda [facility] Cardiac Ultrasound Laboratory Procedure Note Scott Ortega MD - 08/15/2018Format ting of this note might be different from the original. Procedure: Transthoracic Echocardiogram Patient: NATALYA MCBRIDE(Age): [birth year]73y) Med Rec#: [id number] Sex: M Site Loc: [facility] Ht / Wt: 172(cm)/81(kg) Pt. Loc: Echo Lab BSA: 1.94 Study Date: 08/15/2018 Pt. Type: Outpati ent Tape: Referring: MARY ELLEN Reading: Scott Ortega ([id number]) Delineator: Laura Sargent Diagnosis: *Chronic systolic (congestive) heart [...] MV E-wave Vmax 1.2 m/sec MV deceleration ajxq424.4 msec MV A-wave Vmax 0.7 m/sec MV [...] Akinetic Mid-Posterolateral Akinetic Mid-Inferior Hypokinetic Mid-Inferoseptal Hypokinetic [place]-Septal Akinetic [place]-Anterior Hypokinetic [place]-Lateral Akinetic [place]-Inferior Hypokinetic [place]-Tip Akinetic This report has been electronically sign ed by: _ Scott Ortega M.D. 08/15/2018 08:17: 26 Images reviewed and interpretation [facility] Cardiac Ultrasound Laboratory Danette Maxwell STACIE ECHO [...] Routine documented in this encounter Care Teams Drapery Hand Relationship Specialty Start Date End Date Lovely Vicente MD PCP - General 04/16/[address] [place] [address] documented as of this encounter
--- OUTSIDE RECORDS SUMMARY | 2022-03-13 10:54 | XMS_ITS | Encounter Summary ---
:1945 [place] [address] Care Team Providers Name Role Phone Lovely Vicente MD Primary Care Provider Encounter Details Date Type Department Care Team Description 07/12/2019 Office Visit Dermatology at [facility], Rigoberto Yarbrough (actinic keratosis); MD SHAY Quick III (seborrheic keratosis); [address] [facility] Multiple benign nevi; [place] [address] History of melanoma [phone] [facility]DER[facility] [place], [place] [address] Social History Tobacco Use Types Packs/Day Years Used Date Former Smoker Cigarettes 3 5 Quit: 07/26/18 69 Smokeless Tobacco: Never Used Alcohol Use Standard Drinks/Week Comments No 0 (1 standard drink = 0.6 oz pure alcoho l) Sex Assigned at Date Recorded Not on file documented as of this encounter Progress Notes Sanam Koo - 07/12/2019 7:45 AM EST DERMATOLOGY ESTABLISHED [...] Nobles MD [facility] DR T[address] [place], [place] [address] (Wo rk) 05/28/2022 Appointment Cardiology Zulma Dolan MD [facility] [place], [place] [address] (Wo rk) 05/28/2022 Laboratory Appointment Lab 05/28/2022 Office Visit Cardiology Zulma Dolan MD [facility] [place] [address] Liz Poole PA [facility] [place] [address] 06/10/2022 Office Visit Dermatology Laura Scherer MD [facility] DR TEJA GR-DERMAT OLOG[place], [place] [address] (Wo rk) documented as of this encounter Visit Diagnoses Diagnosis AK (actinic keratosis) Actinic keratosis [place] (seborrheic keratosis) Other seborrheic keratosis Multiple benign nevi Benign neoplasm of skin, site unspecifie d History of melanoma Personal history of malignant melanoma o f skin documented in this encounter Care Teams Optical Goods Drilling Machine Operator Relationship Specialty Start Date End Date Lovely Vicente MD PCP - General 04/16/[address] [place] [address] [address] [facility] [place] [address] documented as of this encounter
--- OUTSIDE RECORDS SUMMARY | 2022-03-13 10:54 | XMS_ITS | Encounter Summary ---
:1945 Author Organization [place] [address] Care Team Providers Name Role Phone Lovely Vicente MD Primary Care Provider Encounter Details Date Type Department Care Team Description 11/29/2017 Hospital Encounter Vascular Lab at Janett Walter PAD (peripheral [facility], RVT artery [facility]) [place] [phone] Social History Tobacco Use Types Packs/Day Years [...] gauge x 4 times daily. 3/16 Needle meTOPROLOL succinate Take [...] MD [facility] [address] TADEO [place], [place] 0375 (Wo rk) 05/28/2022 Appointment Cardiology Zulma Dolan MD [facility] [place], [place] 0375 (Wo rk) 05/28/2022 Laboratory Appointment Lab 05/28/2022 Office Visit Cardiology Zulma Dolan MD [facility] [place] [address] Liz Poole PA [facility] [place] [address] 06/10/2022 Office Visit Dermatology Laura Scherer MD [facility] DR TEJA GR-DERMAT OLOGY [place], [place] 0375 (Wo rk) documented [...] At [facility] Range Method Time Signature VB Text Department: Vascular Surgery Lab VASCUBASE Report Patient: [id number] (GREGORY HOANG) CPT: 21617 ICD10: I72.4;I73.9 Referring Physician: ANNETTE MAXWELL ?? [...] Laterality 11/29/2017 10:32 AM EDT Annette Maxwell BRICK CHIMNEY SUPERVISOR VASCULAR ORDERABLES Performing Organization Address City/State/ZIP Code Phon e Number VASCUBASE documented in this encounter Visit Diagnoses Diagnosis PAD (peripheral artery disease) Peripheral vascular disease, unspecified documented in this encounter Care Teams Weblogic Administrator Relationship Specialty Start Date End Date Lovely Vicente MD PCP - General 04/16/[address] [place] [address] documented as of this encounter
--- OUTSIDE RECORDS SUMMARY | 2022-03-13 10:54 | XMS_ITS | Encounter Summary ---
:1945 Author Organization [facility] [place] [address] Care Team Providers Name Role Phone Lovely Vicente MD Primary Care Provider Encounter Details Date Type Department Care Team Description 07/28/2019 Laboratory Appointment Lab 3L [facility] [place] [phone] Social History Tobacco Use Types Packs/Day Years [...] Nobles MD [facility] DR CARLYLE [place], [place] 0375 (Wo rk) 05/28/2022 Appointment Cardiology Zulma Dolan MD [facility] [address] [place], [place] [address] (Wo rk) 05/28/2022 Laboratory Appointment Lab 05/28/2022 Office Visit Cardiology Zulma Dolan MD [facility] [place] [address] Liz Poole PA [facility] [place] [address] 06/10/2022 Office Visit Dermatology Laura Scherer MD [facility] ER DR LEZ[address] RD-DERMAT OLOGY [place], [place] 0375 (Wo rk) documented as of [...] athologist Signature ProBNP 647 (H) <=125 pg/mL [facility] Specimen Anatomical Collection Method Collection Time Receive d Time (Source) Location / / Volume Laterality Blood specimen 07/28/2019 8:36 AM 020 8:46 (specimen) EST AM EST Resulting Agency Comment Spec In Lab Danette Maxwell APRN CHEMISTRY ORDERABLES Performing Organization Address City/State/[place] [address] (ABNORMAL) Basic Metabolic Panel (non-fasting) (07/28/2019 8:36 AM EST) athologist Signature Glucose Lvl 153 65 - 199 [facility] mg/dL [facility] Comment: Diabetes: >=200 mg/dL [...] LABORATORY Estimated GFR 70 >=60 mL/min/1.73 m?? [facility] Comment: The eGFR was calculated using the CKD-EP I equation. As with all creatinine based estimates of kidney function, eGFR values calculated with the CKD-EPI equation are not accurate in patients wi th acute kidney failure, extremes of body mass or the acutely ill. http://Akeneo/[facility] CITY[facility]f eGFR 81 >=60 mL/min/1.73 m?? [facility] Comment: The eGFR was calculated using the CKD-EP I equation. As with all creatinine based estimates of kidney function, eGFR values calculated with the CKD-EPI equation are not accurate in patients wi th acute kidney failure, extremes of body mass or the acutely ill. http://Akeneo/DHMCnkf Specimen Anatomical Collection Method Collection Time Receive d Time (Source) Location / / Volume Laterality Blood specimen 07/28/2019 8:36 AM 020 8:46 (specimen) EST AM EST Resulting Agency Comment Spec In Lab Danette Maxwell APRN CHEMISTRY ORDERABLES Performing Organization Address City/State/[place] [address] documented in this encounter Visit Diagnoses Diagnosis Chronic systolic heart failure documented in this encounter Care Teams Credit Card Specialist Relationship Specialty Start Date End Date Lovely Vicente MD PCP - General 04/16/[address] [place] [address] documented as of this encounter
--- OUTSIDE RECORDS SUMMARY | 2022-03-13 10:54 | XMS_ITS | Encounter Summary ---
:1945 [place] [address] Care Team Providers Name Role Phone Lovely Vicente MD Primary Care Provider Encounter Details Date Type Department Care Team Description 11/29/2017 Hospital Encounter Radiology Library at Estefany Maxwell Pain [facility] GUARD RANGE [facility] [place] [address] CARDIOLOGY [phone] [place], [place] 0[address] (Wo rk) Social History Tobacco [...] Nobles MD [facility] CARDIOLOGY [place], [place] 0375 (Wo rk) 05/28/2022 Appointment Cardiology Zulma Dolan MD [facility] [place], [place] 0[address] (Wo rk) 05/28/2022 Laboratory Appointment Lab 05/28/2022 Office Visit Cardiology Zulma Dolan MD [facility] [place] [address] Liz Poole PA [facility] [place] [address] 06/10/2022 Office Visit Dermatology Laura Scherer MD [facility] DR TEJA GR-DERMAT OLOGY [place], [place] 0375 (Wo rk) documented as [...] Time Received Time / Laterality Volume Narrative [facility] - 12/28/2017 11:07 AM EDT This exam is for storage only and is aut o-finalizing. Danettebrock Maxwell GUARD RANGE IMG FILM LIBRARY ORDERABLES Performing Organization Address City/State/ZIP Code Phon e Number [place], [place] documented in this encounter Visit Diagnoses Diagnosis Pain Generalized pain documented in this encounter Care Teams Glazier Helper Relationship Specialty Start Date End Date Lovely Vicente MD PCP - General 04/16/[address] [place] [address] documented as of this encounter
--- OUTSIDE RECORDS SUMMARY | 2022-03-13 10:54 | XMS_ITS | Encounter Summary ---
:1945 [place] [address] Care Team Providers Name Role Phone Lovely Vicente MD Primary Care Provider Reason for Visit Reason Comments Skin Cancer Examination Encounter Details Date Type Department Care Team Description 03/20/2021 Office Visit Dermatology at 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 [facility] visit at [facility] Derm: 01/02/2020 Medications: Reviewed in [...] FSE; history of Melanoma []Note routed to corporation secretary [x]Recall has been placed in scheduling [...] Nobles MD [facility] CARDIOLOGY [place], [place] 0375 (Wo rk) 05/28/2022 Appointment Cardiology Zulma Dolan MD [facility] [place], [place] 0375 (Wo rk) 05/28/2022 Laboratory Appointment Lab 05/28/2022 Office Visit Cardiology Zulma Dolan MD [facility] [place] [address] Liz Poole PA [facility] [place] [address] 06/10/2022 Office Visit Dermatology Laura Rene MD [facility] DR TEJA GR-DERMAT [place], [place] 0375 (Wo rk) documented as of this encounter Visit Diagnoses Diagnosis History of melanoma Personal history of malignant melanoma o f skin History of dysplastic nevus Personal history of diseases of skin and subcutaneous tissue Multiple benign nevi Benign neoplasm of skin, site unspecifie d [place] (seborrheic keratosis) Other seborrheic keratosis [place] (actinic keratosis) Actinic keratosis documented in this encounter Care Teams Managing Partner Relationship Specialty Start Date End Date Lovely Vicente MD PCP - General 04/16/15 [facility] [address] [place] [address] documented as of this encounter
--- OUTSIDE RECORDS SUMMARY | 2022-03-13 10:54 | XMS_ITS | Encounter Summary ---
:1945 Author Organization [facility] Address [facility] [place] [address] Care Team Providers Name Role Phone Lovely Vicente MD Primary Care Provider Encounter Details Date Type Department Care Team Description 01/02/2020 Office Visit Dermatology at Rigoberto Forman ctinic keratoses; Abdelrahman HOOPER MD History of melanoma; [address] [facility] History of dysplastic nevus; [place] [address] Multiple benign nevi; [phone] [facility] Seborrheic yossi [place]; RD-DERMATOLGY Skin exam for malignant neoplasm [place], [place] 0[address] Social History Tobacco Use Types Packs/Day Years Used Date Former Smoker Cigarettes 3 5 Quit: 07/26/18 69 Smokeless Tobacco: Never Used Alcohol Use Standard Drinks/Week Comments No 0 (1 standard drink = 0.6 oz pure alcoho l) Sex Assigned at Date Recorded Not on file documented as of this encounter Progress Notes Sanam Koo - 01/02/2020 7:30 AM EDT DERMATOLOGY ESTABLISHED [...] encounter. Rigoberto Garcia MD Section of Dermatology [facility] documented in this encounter Plan of Treatment Upcoming Encounters Date Type Specialty Care Team Description 03/26/2022 Office Visit Cardiology Vitaliy Nobles MD [facility] DR CARLYLE [place], [place] 0[address] (Wo rk) 05/28/2022 Appointment Cardiology Zulma Dolan MD [facility] Dr [place], [place] 0[address] (Wo rk) 05/28/2022 Laboratory Appointment Lab 05/28/2022 Office Visit Cardiology Zulma Dolan MD [facility] [place] [address] [facility] [place] [address] 06/10/2022 Office Visit Dermatology Laura Scherer MD [facility] DR TEJA GR-DERMAT [place], [place] 0375 (Wo rk) documented as of [...] skin documented in this encounter Care Teams Black Belt Relationship Specialty Start Date End Date Lovely Vicente MD PCP - General 04/16/[address] [place] [address] [address] [place] [address] documented as of this encounter
--- OUTSIDE RECORDS SUMMARY | 2022-03-13 10:54 | XMS_ITS | Encounter Summary ---
:1945 Author Organization [facility] [address] Care Team Providers Name Role Phone Lovely Vicente MD Primary Care Provider Encounter Details Date Type Department Care Team Description 04/16/2021 Laboratory Appointment Lab 3L [facility] [place] [phone] Social History Tobacco Use Types Packs/Day Years [...] Nobles MD [facility] DR ATDEO [place], [place] 0375 (Wo rk) 05/28/2022 Appointment Cardiology Zulma Dolan MD [facility] Dr [place] 0[address] (Wo rk) 05/28/2022 Laboratory Appointment Lab 05/28/2022 Office Visit Cardiology Zulma Dolan MD [facility] [place] [address] Liz Poole PA [facility] [place] [address] 06/10/2022 Office Visit Dermatology Laura Scherer MD [facility] ER DR LEZAMA RD-DERMAT OLOGY [place], [place] 0375 (Wo rk) documented as of [...] Organization Address City/State/[place] [address] (ABNORMAL) Basic Metabolic Panel (non-fasting) (04/16/2021 9:58 AM EDT) athologist Signature Glucose Lvl 77 65 - 199 [facility] mg/dL [facility] Comment: Diabetes: >=200 [...] Organization Address City/State/[place] [address] documented in this encounter Visit Diagnoses Diagnosis Chronic systolic heart failure documented in this encounter Care Teams Clay Processing Labourer Relationship Specialty Start Date End Date Lovely Vicente MD PCP - General 04/16/[address] [place] [address] documented as of this encounter
--- OUTSIDE RECORDS SUMMARY | 2022-03-13 10:54 | XMS_ITS | Encounter Summary ---
:1945 Author Organization [facility] [place] [address] Care Team Providers Name Role Phone Lovely Vicente MD Primary Care Provider Reason for Visit Reason Comments Establish Care Atrial Fibrillation Congestive Heart Failure Cardiomyopathy Encounter Details Date Type Department Care Team Description 09/06/2019 Office Visit Cardiology at [place], Ischemic cardiomyopathy Osvaldo STRANGE [address] [facility] [address] [place], [place] CARDIOLOGY DEPT. [address] [place] [address] [phone] Social History Tobacco Use Types Packs/Day Years [...] today For any questions, call my office: [phone] To access your health care information, go to the web at: [email or web address] (you will need to register) For educational materials: [email or web address] [place] TRAMMELL.[facility], Clinical Cardiac Electrophysiology, [facility], [facility] A Healthy Heart: After Your Visit [...] least 2 servings of fish a week. Hinckley, mackerel, mcfadden, sardines, and chunk light tuna [...] irregular heartbeat. After you call 911, the needle punch operator may tell you to chew 1 [...] more? Visit our health information library at [email or web address]. You can also view health information on [employer]Enterprise, your personal patient account. Log in or sign up today. Enter F075 in the search box to learn more about A Healthy Heart: After Your Visit. ?? [phone] [employer] documented in this encounter Progress Notes [place] Gonzalez MD - 09/06/2019 2:20 PM EST Images from the original note were not included. Section of Cardiology/Cardiac Electrophysiology [facility] Clinical Cardiac Electrophysiology Consult Patient ID Don Fatima 1945 [id number] Don Fatima is referred to the EP clinic by Danette Maxwell APRN PhD Chief Complaint Dyspnea on exertion Ischemic cardiomyopathy History This is a 74 y.o. male following up/being seen in clinic for evaluation for ongoing anticoagulation. He has a Ykzst1Vvqm score of ~ 6-7. He has a [...] reviewed the ECG: sinus rhythm, 72 bpm, MO 140 ms, QRS 100 ms, QT 400 [...] EP clinic KAREL GONZALEZ MD Cardiac Electrophysiology [facility] T: [phone] F: [phone] 35 minutes of this 40 minute encounter were spent in counselling, as described above Cc: MD Danette Cr APRN PhD Janett Espino DPM documented in this encounter Plan of Treatment Upcoming Encounters Date Type Specialty Care Team Description 03/26/2022 Office Visit Cardiology Vitaliy Nobles MD [facility] [address] TADE[address] [place], [place] 0[address] (Wo rk) 05/28/2022 Appointment Cardiology Zulma Dolan MD [facility] [place], [place] 0375 (Wo rk) 05/28/2022 Laboratory Appointment Lab 05/28/2022 Office Visit Cardiology Zulma Dolan MD [facility] [place] [address] Liz Poole PA [facility] [place] [address] 06/10/2022 Office Visit Dermatology Laura Scherer MD [facility] DR LEZAMA RD-DERMAT OLOGY [place], [place] 0375 (Wo rk) documented as of [...] 446 ms MUSE SYSTEM (Bezet) Calculated P [place] 37 degrees MUSE SYSTEM Calculated R [place] -23 degrees MUSE SYSTEM Calculated T [place] 116 degrees MUSE SYSTEM INTERPRETATION Normal sinus rhythm MUSE SYSTEM Inferior infarct (cited on or before 25-JAN-2013) ST & T wave abnormality, consider anterolateral ischemia Abnormal ECG When compared with ECG of 19-AUG-2017 10:23, No significant change was found Confirmed by MD Castellon Daniel ([id number]) on 09/08/2019 10:22:4 7 AM Specimen Anatomical [...] disease documented in this encounter Care Teams Ceo And Co Founder Relationship Specialty Start Date End Date Lovely Vicente MD PCP - General 04/16/[address] [place] [address] documented as of this encounter
--- OUTSIDE RECORDS SUMMARY | 2022-03-13 10:54 | XMS_ITS | Encounter Summary ---
:1945 Author Organization [place] [address] Care Team Providers Name Role Phone Lovely Vicente MD Primary Care Provider Encounter Details Date Type Department Care Team Description 02/19/2020 Telephone Dermatology at [facility] Ariana Wilder LPN [address] [place] [address] Social History Tobacco Use Types Packs/Day [...] Vitaliy Nobles MD [facility] CARDIOLOGY [place], [place] 0375 (Wo rk) 05/28/2022 Appointment Cardiology Zulma Dolan MD [facility] [place], [place] 0[address] (Wo rk) 05/28/2022 Laboratory Appointment Lab 05/28/2022 Office Visit Cardiology Zulma Dolan MD [facility] [place] [address] Liz Poole PA [facility] [place] [address] 06/10/2022 Office Visit Dermatology Laura Scherer MD [facility] DR TEJA GR-DERMAT [place], [place] 0375 (Wo rk) documented as of this encounter Visit Diagnoses Not on filedocumented in this encounter Care Teams Wood Heel Finisher Relationship Specialty Start Date End Date Lovely Vicente MD PCP - General 04/16/[address] [place] [address] documented as of this encounter
--- OUTSIDE RECORDS SUMMARY | 2022-03-13 10:54 | XMS_ITS | Encounter Summary ---
:1945 Author Organization [facility] [place] [address] Care Team Providers Name Role Phone Lovely Vicente MD Primary Care Provider Encounter Details Date Type Department Care Team Description 08/26/2018 Transcribe Orders Laboratory Lovely Vicente, Deferred diagnosis [facility] on axis I [address] [address] [place], [place] [phone] [address] Social History Tobacco Use Types Packs/Day Years [...] Nobles MD [facility] DR CARLYLE [place] 0[address] (Wo rk) 05/28/2022 Appointment Cardiology Zulma Dolan MD [facility] Dr [place] 0[address] (Wo rk) 05/28/2022 Laboratory Appointment Lab 05/28/2022 Office Visit Cardiology Zulma Dolan MD [facility] [place] [address] Liz Poole PA [facility] [place] [address] 06/10/2022 Office Visit Dermatology Laura Scherer MD [facility] ER DR LEZAMA RD-DERMAT [place], [place] 0375 (Wo rk) documented as of this encounter Visit Diagnoses Diagnosis Deferred diagnosis on axis I Other unknown and unspecified cause of m orbidity or mortality documented in this encounter Care Teams Juice Packaging Machines Setter Relationship Specialty Start Date End Date Lovely Vicente MD PCP - General 04/16/[address] [place] [address] documented as of this encounter
--- OUTSIDE RECORDS SUMMARY | 2022-03-13 10:54 | XMS_ITS | Encounter Summary ---
:1945 Author Organization [facility] [place] [address] Care Team Providers Name Role Phone Lovely Vicente MD Primary Care Provider Encounter Details Date Type Department Care Team Description 11/29/2017 Office Visit Cardiology at [facility] Annette Viveros Chronic systolic congestive heart failure; [facility] A, PIPE FITTER MARINE ASCVD (arteriosclerotic cardiovascular d isease); [facility] Cardiomyopathy, ischemic; [place], [place] PAD (peripheral artery disease) [address] CARDIOLOGY [phone] [place], [place] 0[address] Social History Tobacco Use Types [...] in this encounter Progress Notes Annette Viveros, PIPE FITTER MARINE - 11/29/2017 9:20 AM EDT ID and [...] 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 [...] popliteal-pedal bypass at [facility] ? Plan: 1. A review of [...] MD [facility] DR CARLYLE [place], [place] 0[address] (Wo rk) 05/28/2022 Appointment Cardiology Zulma Dolan MD [facility] [address] [place] 0[address] (Wo rk) 05/28/2022 Laboratory Appointment Lab 05/28/2022 Office Visit Cardiology Zulma Dolan MD [facility] [place] [address] Liz Poole PA [facility] [place] [address] 06/10/2022 Office Visit Dermatology Laura Scherer MD [facility] ER DR TEJA GR-DERMAT [place], [place] 0375 (Wo rk) documented as of this encounter Results Arterial Duplex Leg, Unil (11/29/2017 10:32 AM EDT) Component Value Ref Test Analysis Performed At [facility] Range Method Time Signature VB Text Department: Vascular Surgery Lab VASCUBASE Report Patient: [id number] (GREGORY FATIMA) CPT: 16486 ICD10: I72.4;I73.9 Referring Physician: ANNETTE VIVEROS ?? [...] Glucose Lvl 217 (H) 65 - 199 [facility] mg/dL [facility] Comment: Diabetes: >=200 mg/dL plus symp toms BUN 26 (H) 10 - 20 mg/dL [facility] Creatinine 0.96 0.80 - 1.50 mg/dL [facility] Sodium 137 135 - 145 mmol/L [facility] Potassium 4.1 3.5 - 5.0 mmol/L [facility] [...] or in patients with acute kidney failure. [email or web address] [email or web address]/DHnkdep [email or web address].[email or web address]/DHMCnkf Specimen Anatomical Collection Method Collection Time Receive d Time (Source) Location / / Volume Laterality Blood specimen 11/29/2017 8:22 AM 018 8:29 (specimen) EDT AM EDT Resulting Agency Comment Spec In Lab Annette Viveros PIPE FITTER MARINE CHEMISTRY ORDERABLES Performing Organization Address City/State/[place] [address] (ABNORMAL) pro-Brain Natriuretic Peptide (11/29/2017 8:22 AM EDT) P athologist Signature ProBNP 1,769 (H) <=125 [facility] pg/mL [facility] Specimen Anatomical Collection Method Collection Time Receive d Time (Source) Location / / Volume Laterality Blood specimen 11/29/2017 8:22 AM 018 8:29 (specimen) EDT AM EDT Resulting Agency Comment Spec In Lab Annette Viveros PIPE FITTER MARINE CHEMISTRY ORDERABLES Performing Organization Address City/[facility]/[place] [address] documented in this encounter Visit Diagnoses Diagnosis Chronic systolic congestive heart failur e Chronic systolic heart failure ASCVD (arteriosclerotic cardiovascular d isease) Unspecified cardiovascular disease Cardiomyopathy, ischemic Other specified forms of chronic ischemi c heart disease PAD (peripheral artery disease) Peripheral vascular disease, unspecified documented in this encounter Care Teams Wood Lathe Operator Relationship Specialty Start Date End Date Lovely Vicente MD PCP - General 04/16/[address] [place] [address] documented as of this encounter
--- OUTSIDE RECORDS SUMMARY | 2022-03-13 10:54 | XMS_ITS | Encounter Summary ---
:1945 Author Organization [facility] [place] [address] Care Team Providers Name Role Phone Lovely Vicente MD Primary Care Provider Encounter Details Date Type Department Care Team Description 08/15/2018 Office Visit Cardiology at [facility] Danette Maxwell Chronic systolic heart failu re; [facility] A, LAST MODEL DEPARTMENT SUPERVISOR Cardiomyopathy, ischemic; [facility] ASCVD (arteriosclerotic card iovascular disease); [place], [place] Essential hypertension; [phone] CARDIOLOGY MARIA VICTORIA on CPAP [phone] [place], [place] [address] Social History Tobacco Use Types [...] in this encounter Progress Notes Danette Maxwell, LAST MODEL DEPARTMENT SUPERVISOR - 08/15/2018 9:00 AM EST [...] is always better at therapy Call to [facility] PT Denies lightheadedness or [...] K+ 4.6 today 6. Post-op atrial fibrillation [id number] (CHF, HTN, DM, vascular disease, thromboembolism) Amiodarone discontinued Continue coumadin INR managed by PCP. 2.1 today 7. PAD 08/06/2017: Right 1st, 2nd, 3rd toe amputation 08/11/2017: Left??femoral arterial access, RLE??angiogram, Balloon angioplasty of R PT with Eleazar 2.5 x 80 10/25/2017: right popliteal-pedal bypass at [facility] 8. Hypothyrodism S/p thyroidectomy for [...] MD [facility] [address] CARLYLE [place] 0[address] (Wo rk) 05/28/2022 Appointment Cardiology Zulma Dolan MD [facility] Dr [place] 0[address] (Wo rk) 05/28/2022 Laboratory Appointment Lab 05/28/2022 Office Visit Cardiology Zulma Dolan MD [facility] [place] [address] Liz Poole PA [facility] [place] [address] 06/10/2022 Office Visit Dermatology Laura Scherer MD [facility] ER DR [address] [place], [place] 0[address] (Wo rk) documented as of this encounter Results Lipid Panel (08/15/2018 8:04 AM EST) athologist Signature Chol, Total 75 mg/dL [facility] Comment: Lower Risk: <200 mg/dL Average Risk: 200-239 mg/dL Higher Risk: >cp=531 mg/dL Triglycerides 185 mg/dL [facility] Comment: Average Risk/Lower Risk: <150 mg/dL Borderline High Risk: 150-199 mg/dL High Risk: 200-499 mg/dL Very High Risk: >ga=916 mg/dL HDL 32 mg/dL [facility] Comment: Males: ?? Higher Risk: <40 mg/dL Females: ?? HIgher Risk: <50 mg/dL LDL Cholesterol 6 mg/dL [facility] Comment: Lowest Risk: <100 mg/dL Lower Risk: 100-129 mg/dL Borderline High Risk: 130-159 mg/dL High Risk: 160-189 mg/dL Very High Risk: >ws=425 mg/dL Chol/HDL Ratio 2.3 ratio [facility] Lipid Interpretation See Note [facility] Comment: Lipid management should be guided by a p atient? s ASCVD risk, goals and preferences. ACC/AHA Guidelines recommend high intens ity statin if clinical ASCVD or LDL greater than or equal to 190 mg/dL. http://tinyurl.com/ARO-UCJ-Lkqaphhrh Adults aged 40-75 with LDL 70-189 mg/dL should have their 10 year ASCVD risk estimated with the ACC/AHA ASCVD risk es timator http://tools.acc.org/IRJLR-Dvpo-Sjzidilz r/ Statin should be discussed if risk [...] Organization Address City/State/ZIP [place] [address] (ABNORMAL) Basic Metabolic Panel (non-fasting) (08/15/2018 8:04 AM EST) P athologist Signature Glucose Lvl 116 65 - 199 [facility] mg/dL [facility] Comment: Diabetes: >=200 mg/dL plus symp [...] of body mass or the acutely ill. http://[employer]/[facility]OREnk eGFR 79 >=60 mL/min/1.73 m?? [facility] Comment: The eGFR was calculated using the CKD-EP I equation. As with all creatinine based estimates of kidney function, eGFR values calculated with the CKD-EPI equation are not accurate in patients wi th acute kidney failure, extremes of body mass or the acutely ill. http://[employer]/[facility] CL[facility]OREnkf Specimen Anatomical Collection Method Collection Time Receive d Time (Source) Location / / Volume Laterality Blood specimen 08/15/2018 8:04 AM 019 8:20 (specimen) EST AM EST Resulting Agency Comment Spec In Lab Danette Maxwell APRN CHEMISTRY ORDERABLES Performing Organization Address City/[facility]/[place] [address] (ABNORMAL) pro-Brain Natriuretic Peptide (08/15/2018 8:04 AM EST) P athologist Signature ProBNP 1,797 (H) <=125 [facility] pg/mL [facility] Specimen Anatomical Collection Method Collection Time Receive d Time (Source) Location / / Volume Laterality Blood specimen 08/15/2018 8:04 AM 019 8:20 (specimen) EST AM EST Resulting Agency Comment Spec In Lab Danette Maxwell APRN CHEMISTRY ORDERABLES Performing Organization Address City/State/[place] [address] documented in this encounter Visit Diagnoses Diagnosis Chronic systolic heart failure Cardiomyopathy, ischemic Other specified forms of chronic ischemi c heart disease ASCVD (arteriosclerotic cardiovascular d isease) Unspecified cardiovascular disease Essential hypertension Unspecified essential hypertension MARIA VICTORIA on CPAP Obstructive sleep apnea (adult) (pediatr ic) documented in this encounter Care Teams Hse Advisor Relationship Specialty Start Date End Date Lovely Vicente MD PCP - General 04/16/[address] [place] [address] [address] [place] [address] documented as of this encounter
--- OUTSIDE RECORDS SUMMARY | 2022-03-13 10:54 | XMS_ITS | Encounter Summary ---
:1945 Author Organization [facility] [place] [address] Care Team Providers Name Role Phone Lovely Vicente MD Primary Care Provider Encounter Details Date Type Department Care Team Description 01/16/2019 Laboratory Appointment Lab 3L [facility] [place] [phone] Social History Tobacco Use Types Packs/Day Years [...] Nobles MD [facility] DR CARLYLE [place], [place] [address] (Wo rk) 05/28/2022 Appointment Cardiology Zulma Dolan MD [facility] Dr [place], [place] [address] (Wo rk) 05/28/2022 Laboratory Appointment Lab 05/28/2022 Office Visit Cardiology Zulma Dolan MD [facility] [place] [address] Liz Poole PA [facility] [place] [address] 06/10/2022 Office Visit Dermatology Laura Scherer MD [facility] ER DR [address]-DERMAT [place], [place] 0[address] (Wo rk) documented as of [...] Organization Address City/State/[place] [address] (ABNORMAL) Basic Metabolic Panel (non-fasting) (01/16/2019 7:49 AM EDT) athologist Signature Glucose Lvl 105 65 - 199 [facility] mg/dL [facility] [...] of body mass or the acutely ill. http://[employer]/[facility] CITYnkf eGFR 79 >=60 mL/min/1.73 m?? [facility] Comment: The eGFR was calculated using the CKD-EP I equation. As with all creatinine based estimates of kidney function, eGFR values calculated with the CKD-EPI equation are not accurate in patients wi th acute kidney failure, extremes of body mass or the acutely ill. http://[employer]/[facility] [place] CITYnkf Specimen Anatomical Collection Method Collection Time Receive d Time (Source) Location / / Volume Laterality Blood specimen 01/16/2019 7:49 AM 019 7:55 (specimen) EDT AM EDT Resulting Agency Comment Spec In Lab Danette Maxwell APRN CHEMISTRY ORDERABLES Performing Organization Address City/State/[place] [address] documented in this encounter Visit Diagnoses Diagnosis Chronic systolic heart failure documented in this encounter Care Teams Veneer Glue Jointer Feedback Relationship Specialty Start Date End Date Lovely Vicente MD PCP - General 04/16/[address] [place] [address] documented as of this encounter
--- OUTSIDE RECORDS SUMMARY | 2022-03-13 10:54 | XMS_ITS | Encounter Summary ---
:1945 Author Organization [facility] [address] Care Team Providers Name Role Phone Lovely Vicente MD Primary Care Provider Encounter Details Date Type Department Care Team Description 10/07/2017 Laboratory Appointment Lab 3L [facility] [place] [phone] Social History Tobacco Use Types Packs/Day Years [...] [facility] DR [place]LYLE [place], [place] [address] (Wo rk) 05/28/2022 Appointment Cardiology Zulma Dolan MD [facility] Dr [place], [place] [address] (Wo rk) 05/28/2022 Laboratory Appointment Lab 05/28/2022 Office Visit Cardiology Zulma Dolan MD [facility] [place] [address] Liz Poole PA [facility] [place] [address] 06/10/2022 Office Visit Dermatology Laura Scherer MD [facility] ER DR [address]MAT [place], [place] [address] (Wo rk) documented as of [...] Lvl 99 65 - 199 [facility] mg/dL [facility] Comment: Diabetes: >=200 mg/dL plus symp toms BUN 27 (H) 10 - 20 mg/dL [facility] Creatinine 1.07 0.80 - 1.50 mg/dL [facility] [...] Calcium 8.4 (L) 8.5 - 10.5 mg/dL [facility] Estimated GFR >60 >=60 KATALINA Wyatt [facility] Comment: The reported eGFR should be multiplied b y 1.2 for patients. The MDRD is not an appropriate measure o f renal function for patients with body mass extremes or in patients with acute kidney failure. http://Travefy/DHnkdep http://Travefy/DHMCnkf Specimen Anatomical Collection Method Collection Time Receive d Time (Source) Location / / Volume Laterality Blood specimen 10/07/2017 8:48 AM 018 8:50 (specimen) EDT AM EDT Resulting Agency Comment Spec In Lab Danette Maxwell STACIE CHEMISTRY ORDERABLES Performing Organization Address City/State/[place] [address] (ABNORMAL) pro-Brain Natriuretic Peptide (10/07/2017 8:48 AM EDT) P athologist Signature ProBNP 1,170 (H) <=125 [facility] pg/mL [facility] Specimen Anatomical Collection Method Collection Time Receive d Time (Source) Location / / Volume Laterality Blood specimen 10/07/2017 8:48 AM 018 8:50 (specimen) EDT AM EDT Resulting Agency Comment Spec In Lab Danette Maxwell STACIE CHEMISTRY ORDERABLES Performing Organization Address City/State/[place] [address] documented in this encounter Visit Diagnoses Diagnosis Chronic systolic heart failure documented in this encounter Care Teams Cylinder Worker Relationship Specialty Start Date End Date Lovely Vicente MD PCP - General 04/16/[address] [place] [address] documented as of this encounter
--- OUTSIDE RECORDS SUMMARY | 2022-03-13 10:54 | XMS_ITS | Encounter Summary ---
:1945 Author Organization [facility] [place] [address] Care Team Providers Name Role Phone Lovely Vicente MD Primary Care Provider Encounter Details Date Type Department Care Team Description 12/07/2021 Telephone Cardiology Eddi Briceño Jr., [facility] [place] [address] [facility] [phone] CARDIOLOGY DEPT [place], [place] [address] (Wo rk) Social History Tobacco [...] the OSH ED provider/staff member. Referring Location: [facility] Referring Provider: Marisela Dean, HVAC INSTRUCTOR [address] [place] [address] Don Veda Kushal 76 y.o. w / [...] bpm, LAFB, poor R wave progression, septal ME, and lateral STD, overall no significantchange from [...] Cardiology Vitaliy Nobles MD [facility] DR CARLYLE [place] [address] (Mikayla alcaraz) 05/28/2022 Appointment Cardiology Zulma Dolan MD [facility] Dr [place] 0[address] (Wo rk) 05/28/2022 Laboratory Appointment Lab 05/28/2022 Office Visit Cardiology Zulma Dolan MD [facility] [place] [address] Liz Poole PA [facility] [place] [address] 06/10/2022 Office Visit Dermatology Laura Scherer MD [facility] ER DR [address]MAT [place], [place] [address] (Wo rk) documented as of this encounter Visit Diagnoses Not on filedocumented in this encounter Care Teams Electrical Products Engineer Relationship Specialty Start Date End Date Lovely Vicente MD PCP - General 04/16/[address] [place], [place] [address] documented as of this encounter
--- OUTSIDE RECORDS SUMMARY | 2022-03-13 10:54 | XMS_ITS | Encounter Summary ---
:1945 Author Organization [facility] Address [facility] [place] [address] Care Team Providers Name Role Phone Lovely Vicente MD Primary Care Provider Reason for Referral Diagnostic Test (Routine) - Specialty Diagnoses / Procedures Referred By Contact Refer red To Contact Cardiology Diagnoses Chronic systolic heart failure Danette Maxwell APRN [facility] Non-Inv Card Lab Procedures Echocardiogram Transthoracic(Leb) [facility] [place] [address] [place] [address] Referral ID Status Reason Start Date Expiration Visits Visits Date Requested Authorized [id number] Specialty 08/15/2018 08/15/2018 1 1 Service Requested Encounter Details Date Type Department Care Team Description 04/18/2018 Office Visit Cardiology at [facility] Danette Maxwell Chronic systolic heart failu re; [facility] STACIE Gomes On amiodarone therapy; [facility] Ischemic cardiomyopathy; [place], [place] DR ONOFRE (arteriosclerotic cardiovascular d isease) [phone] CARDIOLOGY [phone] [place], [place] [address] Social History Tobacco Use Types Packs/Day Years [...] in this encounter Progress Notes Danette Maxwell, BOTTLE AND GLASS INSPECTOR - 04/18/2018 10:40 AM EDT ID and [...] right popliteal-pedal bypass at [facility] ? Plan: 1. A review of [...] Heart Failure Clinic follow up scheduled for: Sahnelle Maxwell APRN 04/18/2018 documented in this encounter Plan of Treatment Upcoming Encounters Date Type Specialty Care Team Description 03/26/2022 Office Visit Cardiology Vitaliy Nobles MD [facility] CARDIOLOGY [place], [place] 0[address] (Wo rk) 05/28/2022 Appointment Cardiology Zulma Dolan MD [facility] [place], [place] [address] (Wo rk) 05/28/2022 Laboratory Appointment Lab 05/28/2022 Office Visit Cardiology Zulma Dolan MD [facility] [place] [address] Liz Poole PA [facility] [place] [address] 06/10/2022 Office Visit Dermatology Laura Scherer MD [facility] DR [address]-DERMAT O[place], [place] [address] (Wo rk) documented as of this encounter Results ECHOCARDIOGRAM COMPLETE W CONTRAST (08/15/2018 7:55 AM EST) P athologist Signature EF 35 [facility] Specimen (Source) Anatomical Location Collection Method / Collectio n Time Received Time / Laterality Volume 08/15/2018 Narrative [facility] - 08/15/2018 8:18 AM EST Procedure: ?Transthoracic Echocardiogram Patient: ?NATALYA JENKINS E ? (Age): 1945(73y) Med Rec#: ? [id number] ?Sex: ?M ? Site Loc: ? [facility] ?Ht / Wt: ??172(cm)/81(kg) Pt. Loc: ?Echo Lab ?BSA: ?1.94 Study Date: ?? 08/15/2018 ?Pt. Type: Outpatient Tape: ? Referring: MARY ELLEN Reading: Scott Ortega ([id number]) Hatchery Employee: Laura Sargent Diagnosis: *Chronic systolic (congestive) heart [...] E-wave Vmax ?1.2 ?m/sec ? MV deceleration [id number] ? msec ? MV A-wave Vmax ?0.7 [...] ? Mid-Inferior ?Hypokinetic ? Mid-Inferoseptal ?Hypokinetic ? [place]-Septal ? Akinetic ? [place]-Anterior ? Hypokinetic ? [place]-Lateral ?Akinetic ? [place]-Inferior ? Hypokinetic ? [place]-Tip ?Akinetic ? This report has been electronically sign ed by: _ Scott Ortega M.D. ? 08/15/2018 08:17:26 Images reviewed and interpretation verif ied [facility] Cardiac Ultrasound Laboratory Procedure Note Scott Ortega MD - 08/15/2018Format ting of this note might be different from the original. Procedure: Transthoracic Echocardiogram Patient: NATALYA MCBRIDE(Age): [birth year]73y) Med Rec#: [id number] Sex: M Site Loc: [facility] Ht / Wt: 172(cm)/81(kg) Pt. Loc: Echo Lab BSA: 1.94 Study Date: 08/15/2018 Pt. Type: Outpati ent Tape: Referring: MARY ELLEN Reading: Scott Ortega ([id number]) Hatchery Employee: Laura Sargent Diagnosis: *Chronic systolic (congestive) heart [...] MV E-wave Vmax 1.2 m/sec MV deceleration [id number] msec MV A-wave Vmax 0.7 m/sec MV [...] Akinetic Mid-Posterolateral Akinetic Mid-Inferior Hypokinetic Mid-Inferoseptal Hypokinetic [place]-Septal Akinetic [place]-Anterior Hypokinetic [place]-Lateral Akinetic [place]-Inferior Hypokinetic [place]-Tip Akinetic This report has been electronically sign ed by: _ Scott Ortega M.D. 08/15/2018 08:17: 26 Images reviewed and interpretation elvie hwang [facility] Cardiac Ultrasound Laboratory Danette Maxwell APRN ECHO ORDERABLES Performing Organization Address City/State/ZIP Code Phon e Number [facility] (ABNORMAL) Basic Metabolic Panel (non-fasting) (04/18/2018 9:19 AM EDT) P athologist Signature Glucose Lvl 167 65 - 199 [facility] mg/dL [facility] Comment: Diabetes: >=200 mg/dL plus symp toms BUN 18 10 - 20 mg/dL [facility] Creatinine 1.19 0.80 - 1.50 mg/dL [facility] Sodium 147 (H) 135 [...] Gap 23 (H) 5 - 15 mmol/L [facility] [...] of body mass or the acutely ill. http://Flow[employer]/[facility] ARROWnkf eGFR 70 >=60 mL/min/1.73 m?? [facility] Comment: The eGFR was calculated using the CKD-EP I equation. As with all creatinine based estimates of kidney function, eGFR values calculated with the CKD-EPI equation are not accurate in patients wi th acute kidney failure, extremes of body mass or the acutely ill. http://Flowbox/[facility]ROW[facility]f Specimen Anatomical Collection Method Collection Time Receive d Time (Source) Location / / Volume Laterality Blood specimen 04/18/2018 9:19 AM 018 9:34 (specimen) EDT AM EDT Resulting Agency Comment Spec In Lab Danette Maxwell APRN CHEMISTRY ORDERABLES Performing Organization Address City/State/ZIP Code Phon e Number [address] (ABNORMAL) pro-Brain Natriuretic Peptide (04/18/2018 9:19 AM EDT) P athologist Signature ProBNP 2,199 (H) <=125 [facility] pg/mL [facility] Specimen Anatomical Collection Method Collection Time Receive d Time (Source) Location / / Volume Laterality Blood specimen 04/18/2018 9:19 AM 018 9:34 (specimen) EDT AM EDT Resulting Agency Comment Spec In Lab Danette Maxwell APRN CHEMISTRY ORDERABLES Performing Organization Address City/[facility]/ZIP [place] [address] documented in this encounter Visit Diagnoses Diagnosis Chronic systolic heart failure On amiodarone therapy Ischemic cardiomyopathy Other specified forms of chronic ischemi c heart disease ASCVD (arteriosclerotic cardiovascular d isease) Unspecified cardiovascular disease Chronic systolic heart failure documented in this encounter Care Teams Java Web User Interface Developer Relationship Specialty Start Date End Date Lovely Vicente MD PCP - General 04/16/[address] [place] [address] documented as of this encounter
--- OUTSIDE RECORDS SUMMARY | 2022-03-13 10:54 | XMS_ITS | Encounter Summary ---
:1945 Author Organization [facility] [place] [address] Care Team Providers Name Role Phone Lovely Vicente MD Primary Care Provider Reason for Visit Reason Onset Date Comments Other 11/11/2017 Please call [facility] Encounter Details Date Type Department Care Team Description 11/11/2017 Telephone [facility] [place] [facility] Danette Maxwell, Other (Please call [facility] LINER WORKER [facility] ) [place] [address] CARDIOLOGY [place], [place] 0[address] (Wo rk) [...] [facility] DR TADEO [place], [place] [address] (Wo rk) 05/28/2022 Appointment Cardiology Zulma Dolan MD [facility] [place], [place] [address] (Wo rk) 05/28/2022 Laboratory Appointment Lab 05/28/2022 Office Visit Cardiology Zulma Dolan MD [facility] [place] [address] Liz Poole PA [facility] [place] [address] 06/10/2022 Office Visit Dermatology Laura Scherer MD [facility] [address] [place], [place] 0[address] (Wo rk) documented as of this encounter Visit Diagnoses Not on filedocumented in this encounter Care Teams Flower Shop Manager Relationship Specialty Start Date End Date Lovely Vicente MD PCP - General 04/16/[address] [place] [address] documented as of this encounter
--- OUTSIDE RECORDS SUMMARY | 2022-03-13 10:54 | XMS_ITS | Encounter Summary ---
:1945 Author Organization [facility] [place] [address] Care Team Providers Name Role Phone Lovely Vicente MD Primary Care Provider Encounter Details Date Type Department Care Team Description 11/29/2017 Laboratory Lab 3L Barbara Wiseman systoli c congestive heart failure; Appointment [facility] ASCVD (ar teriosclerotic cardiovascular disease); Hospital Cardiomyopathy, [place] [address] Social History Tobacco Use Types [...] MD [facility] DR TADEO [place], [place] [address] (Wo rk) 05/28/2022 Appointment Cardiology Zulma Dolan MD [facility] [address] [place], [place] [address] (Wo rk) 05/28/2022 Laboratory Appointment Lab 05/28/2022 Office Visit Cardiology TrudiZulma Knowles MD [facility] [place] [address] Liz Poole PA [facility] [place] [address] 06/10/2022 Office Visit Dermatology Laura Scherer MD [facility] ER DR [address]-DERMAT OLOGY [place], [place] [address] (Wo rk) documented as of [...] Signature PT 23.0 (H) 9.4 - 12.5 [facility] LABORATORY INR 2.1 [facility] LABORATORY Comment: An [...] City/State/[place] [address] (ABNORMAL) Basic Metabolic Panel (non-fasting) (11/29/2017 8:22 AM EDT) P athologist Signature Glucose Lvl 217 (H) 65 - 199 [facility] mg/dL [facility] LABORATORY Comment: Diabetes: >=200 mg/dL plus symp toms BUN 26 (H) 10 - 20 mg/dL [facility] LABORATORY Creatinine 0.96 0.80 - 1.50 mg/dL [facility] LABORATORY Sodium 137 135 - 145 mmol/L [facility] LABORATORY Potassium 4.1 3.5 - 5.0 mmol/L [facility] LABORATORY [...] or in patients with acute kidney failure. [email or web address]/DHnkdep http://LineHop/DHMCnkf Specimen Anatomical Collection Method Collection Time Receive d Time (Source) Location / / Volume Laterality Blood specimen 11/29/2017 8:22 AM 018 8:29 (specimen) EDT AM EDT Resulting Agency Comment Spec In Lab Danette Maxwell INVESTIGATOR CASH SHORTAGE CHEMISTRY ORDERABLES Performing Organization Address City/State/[place] [address] (ABNORMAL) pro-Brain Natriuretic Peptide (11/29/2017 8:22 AM EDT) P athologist Signature ProBNP 1,769 (H) <=125 [facility] pg/mL [facility] LABORATORY Specimen Anatomical Collection Method Collection Time Receive d Time (Source) Location / / Volume Laterality Blood specimen 11/29/2017 8:22 AM 018 8:29 (specimen) EDT AM EDT Resulting Agency Comment Spec In Lab Danette Maxwell INVESTIGATOR CASH SHORTAGE CHEMISTRY ORDERABLES Performing Organization Address City/[facility]/[place]IP [place] [address] Lavender Tube HOLD (11/29/2017 8:14 AM EDT) Patholo gist Method Time Signature Lavender Hold Sample in [facility]. [facility] LABORATORY Specimen Anatomical Collection Method Collection Time Receive d Time (Source) Location / / Volume Laterality Blood specimen No Charge / 11/29/2017 8:14 AM 018 8:29 (specimen) Unknown EDT AM EDT Lovely Vicente MD HEMATOLOGY ORDERABLES Performing Organization Address City/State/[place] [address] documented in this encounter Visit Diagnoses Diagnosis Chronic systolic congestive heart failur e Chronic systolic heart failure ASCVD (arteriosclerotic cardiovascular d isease) Unspecified cardiovascular disease Cardiomyopathy, ischemic Other specified forms of chronic ischemi c heart disease documented in this encounter Care Teams Battery Mechanic Relationship Specialty Start Date End Date Lovely Vicente MD PCP - General 04/16/[address] [place] [address] documented as of this encounter
--- OUTSIDE RECORDS SUMMARY | 2022-03-13 10:54 | XMS_ITS | Encounter Summary ---
:1945 Author Organization [facility] [place] [address] Care Team Providers Name Role Phone Lovely Vicente MD Primary Care Provider Encounter Details Date Type Department Care Team Description 03/20/2021 Ancillary Procedure Radiology Library [place] [address] [place] [address] [phone] Social History Tobacco Use Types Packs/Day Years [...] MD [facility] DR TADEO [place], [place] [address] (Wo rk) 05/28/2022 Appointment Cardiology Zulma Dolan MD [facility] [address] [place], [place] [address] (Wo rk) 05/28/2022 Laboratory Appointment Lab 05/28/2022 Office Visit Cardiology Zulma Dolan MD [facility] [place] [address] Liz Poole PA [facility] [place] [address] 06/10/2022 Office Visit Dermatology Laura Scherer MD [facility] DR [address]-DERMAT [place], [place] 0[address] (Wo [...] Organization Address City/State/ZIP Code Phon e Number [place], [place] documented in this encounter Visit Diagnoses Not on filedocumented in this encounter Care Teams Partnership Marketing Manager Relationship Specialty Start Date End Date Lovely Vicente MD PCP - General 04/16/[address] [place] [address] documented as of this encounter
--- OUTSIDE RECORDS SUMMARY | 2022-03-13 10:54 | XMS_ITS | Encounter Summary ---
:1945 Author Organization [facility] [place] [address] Care Team Providers Name Role Phone Lovely Vicenet MD Primary Care Provider Reason for Visit Reason Comments Skin Check Encounter Details Date Type Department Care Team Description 07/06/2018 Office Visit Dermatology at [facility], Rigoberto Yarbrough (actinic keratosis); MD SHAY Quick III (seborrheic keratosis); [address] [facility] History of melanoma; [place] [address] Skin exam for malignant neoplasm [phone] [facility] [place], [place] [address] Social History Tobacco Use Types [...] leg - he had vascular surgery in [facility] while he lost several toes, they [...] MD [facility] DR TADE[address] [place], [place] [address] (Wo rk) 05/28/2022 Appointment Cardiology Zulma Dolan MD [facility] [address] [place], [place] [address] (Wo rk) 05/28/2022 Laboratory Appointment Lab 05/28/2022 Office Visit Cardiology Zulma Dolan MD [facility] [place] [address] Liz Poole PA [facility] [place] [address] 06/10/2022 Office Visit Dermatology Laura Scherer MD [facility] DR TE[address]DERMAT [place]LOG[place], [place] [address] (Wo rk) documented as of this encounter Visit Diagnoses Diagnosis AK (actinic keratosis) Actinic keratosis SK (seborrheic keratosis) Other seborrheic keratosis History of melanoma Personal history of malignant melanoma o f skin Skin exam for malignant neoplasm Screening for malignant neoplasm of the skin documented in this encounter Care Teams Screw Machine Adjuster Automatic Relationship Specialty Start Date End Date Lovely Vicente MD PCP - General 04/16/[address] [place] [address] documented as of this encounter
--- OUTSIDE RECORDS SUMMARY | 2022-03-13 10:54 | XMS_ITS | Encounter Summary ---
:1945 Author Organization [facility] [place] [address] Care Team Providers Name Role Phone Lovely Vicente MD Primary Care Provider Encounter Details Date Type Department Care Team Description 03/20/2021 Ancillary Procedure Radiology Library [place] [address] [place] [address] [phone] Social History Tobacco Use Types Packs/Day Years [...] MD [facility] DR TADEO [place], [place] [address] (Wo rk) 05/28/2022 Appointment Cardiology Zulma Dolan MD [facility] [place], [place] [address] (Wo rk) 05/28/2022 Laboratory Appointment Lab 05/28/2022 Office Visit Cardiology Zulma Dolan MD [facility] [place] [address] Liz Poole PA [facility] [place] [address] 06/10/2022 Office Visit Dermatology Laura Scherer MD [facility] ER DR [address]-DERMAT [place], [place] [address] (Wo rk) documented as of [...] Address City/State/ZIP Code Phon e Number [place], [place] documented in this encounter Visit Diagnoses Not on filedocumented in this encounter Care Teams Gl Accountant Relationship Specialty Start Date End Date Lovely Vicente MD PCP - General 04/16/[address] [place] [address] documented as of this encounter
--- OUTSIDE RECORDS SUMMARY | 2022-03-13 10:54 | XMS_ITS | Encounter Summary ---
:1945 [place] [address] Care Team Providers Name Role Phone Lovely Vicente MD Primary Care Provider Encounter Details Date Type Department Care Team Description 04/16/2021 Office Visit Cardiology at [facility] Liz Poole, Chronic systolic heart [facility] [place] [address] Cardiology Dept [phone] [place], [place] [address] Social History Tobacco Use Types [...] was feeling good. 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 07/07/2019 - 07/21/2019 [employer] The patient had a minimum heart rate [...] K+ 5.2 today 6. Post-op atrial fibrillation [id number] (CHF, HTN, DM, vascular disease, thromboembolism) On warfarin - recent labile INR Will discuss with PCP, option of [place] 7. PAD 08/06/2017: Right 1st, 2nd, 3rd toe amputation 08/11/2017: Left??femoral arterial access, RLE??angiogram, Balloon angioplasty of R PT 10/25/2017: right popliteal-pedal bypass at [facility] 8. Hypothyrodism S/p thyroidectomy for goiter [...] Nobles MD [facility] CARDIOLOGY [place], [place] [address] (Wo rk) 05/28/2022 Appointment Cardiology Zulma Dolan MD [facility] [place], [place] [address] (Wo rk) 05/28/2022 Laboratory Appointment Lab 05/28/2022 Office Visit Cardiology Zulma Dolan MD [facility] [place] [address] Liz Poole PA [facility] [place] [address] 06/10/2022 Office Visit Dermatology Laura Scherer MD [facility] DR TEJA GR-DERMAT [place]LOG[place], [place] [address] (Wo rk) documented as of this encounter Results (ABNORMAL) Basic Metabolic Panel (non-fasting) (04/16/2021 9:58 AM EDT) athologist Signature Glucose Lvl 77 65 - 199 [facility] mg/dL [facility] LABORATORY Comment: Diabetes: >=200 mg/dL plus symp toms BUN 23 (H) 10 - 20 mg/dL [facility] LABORATORY Creatinine 1.26 0.80 - 1.50 mg/dL [facility] LABORATORY Sodium 140 135 - 145 mmol/L [facility] LABORATORY Potassium 5.2 (H) 3.5 - 5.0 mmol/L [facility] Estimated GFR 55 [...] Address City/State/[place] [address] (ABNORMAL) pro-Brain Natriuretic Peptide (04/16/2021 9:58 AM EDT) P athologist Signature ProBNP 523 (H) <=124 pg/mL [facility] LABORATORY Specimen Anatomical Collection Method Collection Time Receive d Time (Source) Location / / Volume Laterality Blood 04/16/2021 9:58 AM EDT 10:02 AM EDT Resulting Agency Comment Spec In Lab Zulma Plunkett MD CHEMISTRY ORDERABLES Performing Organization Address City/[facility]/[place] [address] documented in this encounter Visit Diagnoses Diagnosis Chronic systolic heart failure documented in this encounter Care Teams Leather Drier Relationship Specialty Start Date End Date Lovely Vicente MD PCP - General 04/16/[address] [place] [address] documented as of this encounter
--- OUTSIDE RECORDS SUMMARY | 2022-03-13 10:54 | XMS_ITS | Encounter Summary ---
:1945 Author Organization [facility] [place] [address] Care Team Providers Name Role Phone Lovely Vicente MD Primary Care Provider Encounter Details Date Type Department Care Team Description 04/18/2018 Laboratory Appointment Lab 3L [facility] [place] [id number] Social History Tobacco Use Types Packs/Day Years [...] MD [facility] DR CAR[place]LE [place], [place] [address] (Wo rk) 05/28/2022 Appointment Cardiology Zulma Dolan MD [facility] [address] [place], [place] [address] (Wo rk) 05/28/2022 Laboratory Appointment Lab 05/28/2022 Office Visit Cardiology Zulma Dolan MD [facility] [place] [address] Liz Poole PA [facility] [place] [address] 06/10/2022 Office Visit Dermatology Laura Scherer MD [facility] ER DR [address]-DERMAT [place]LOG[place], [place] [address] (Wo rk) documented as of [...] 7.6 6.1 - 8.0 KAT[place]INA RYAN gm/dL [facility] LABORATORY Albumin 4.0 3.2 - 5.2 [place] RYAN gm/dL [facility] LABORATORY AST 36 0 - 39 K[place]ALINA RYAN unit/L [facility] LABORATORY ALT 27 0 - 55 [place] RYAN unit/L [facility] LABORATORY Alk Phos 96 40 - 120 [place]INA RYAN unit/L [facility] LABORATORY Total 0.7 0.2 - 1.3 [place] RYAN Bilirubin mg/dL [facility] LABORATORY Bili, Direct 0.1 0.0 - 0.3 [place] RYAN mg/dL [facility] LABORATORY Specimen Anatomical Collection Method Collection Time Receive d Time (Source) Location / / Volume Laterality Blood specimen Venous Draw / 04/18/2018 9:19 AM 2017 9:44 (specimen) Unknown EDT AM EDT Resulting Agency Comment Spec In Lab Danette Maxwell LINE PRODUCTION COOK CHEMISTRY ORDERABLES Performing Organization Address City/State/ZIP Code Phon e Number [address] TSH (04/18/2018 9:19 AM EDT) athologist Signature TSH 1.77 0.27 - 4.20 [place] mlU/ML [facility] LABORATORY Specimen Anatomical Collection Method Collection Time Receive d Time (Source) Location / / Volume Laterality Blood specimen Venous Draw / 04/18/2018 9:19 AM 2017 9:44 (specimen) Unknown EDT AM EDT Resulting Agency Comment Spec In Lab Danette Maxwell STACIE CHEMISTRY ORDERABLES Performing Organization Address City/State/ZIP Code Phon e Number [address] (ABNORMAL) Basic Metabolic Panel (non-fasting) (04/18/2018 9:19 AM EDT) [facility] Glucose Lvl 167 65 - 199 [place] mg/dL [facility] LABORATORY Comment: Diabetes: >=200 mg/dL [...] of body mass or the acutely ill. http://[email or web address]/[facility] OKLAHOMA CITYnkf eGFR 70 >=60 mL/min/1.73 m?? [facility] LABORATORY Comment: The eGFR was calculated using the CKD-EP I equation. As with all creatinine based estimates of kidney function, eGFR values calculated with the CKD-EPI equation are not accurate in patients wi th acute kidney failure, extremes of body mass or the acutely ill. http://[email or web address]/[facility] OKLAHOMA CITYnkf Specimen Anatomical Collection Method Collection Time Receive d Time (Source) Location / / Volume Laterality Blood specimen 04/18/2018 9:19 AM 018 9:34 (specimen) EDT AM EDT Resulting Agency Comment Spec In Lab Danette Maxwell APRN CHEMISTRY ORDERABLES Performing Organization Address City/State/[place] [address] (ABNORMAL) pro-Brain Natriuretic Peptide (04/18/2018 9:19 AM EDT) P athologist Signature ProBNP 2,199 (H) <=125 [facility] pg/mL [facility] LABORATORY Specimen Anatomical Collection Method Collection Time Receive d Time (Source) Location / / Volume Laterality Blood specimen 04/18/2018 9:19 AM 018 9:34 (specimen) EDT AM EDT Resulting Agency Comment Spec In Lab Danette Maxwell APRN CHEMISTRY ORDERABLES Performing Organization Address City/State/[place] [address] documented in this encounter Visit Diagnoses Diagnosis Chronic systolic heart failure documented in this encounter Care Teams Middleware Developer Relationship Specialty Start Date End Date Lovely Vicente MD PCP - General 04/16/[address] [place] [address] documented as of this encounter
--- OUTSIDE RECORDS SUMMARY | 2022-03-13 10:54 | XMS_ITS | Encounter Summary ---
:1945 [place] [address] Care Team Providers Name Role Phone Lovely Vicente MD Primary Care Provider Encounter Details Date Type Department Care Team Description 03/20/2021 Telephone Neurology at [facility] Hugo Gaston MD [facility] [place] [address] [place] [address] [phone] (Wo rk) Social History Tobacco Use Types [...] Gaston MD Department of Neurology Pager # [phone] documented in this encounter Plan of Treatment Upcoming Encounters Date Type Specialty Care Team Description 03/26/2022 Office Visit Cardiology Vitaliy Nobles MD [facility] DR TADEO [place], [place] [address] (Wo rk) 05/28/2022 Appointment Cardiology Zulma Dolan MD [facility] [place], [place] [address] (Wo rk) 05/28/2022 Laboratory Appointment Lab 05/28/2022 Office Visit Cardiology Zulma Dolan MD [facility] [place] [address] Liz Poole PA [facility] [place] [address] 06/10/2022 Office Visit Dermatology Laura Scherer MD [facility] DR TE[address] GR-DERMAT [place], [place] 0[address] (Wo rk) documented as of this encounter Visit Diagnoses Not on filedocumented in this encounter Care Teams Truck Loader And Unloader Relationship Specialty Start Date End Date Lovely Vicente MD PCP - General 04/16/[address] [place] [address] documented as of this encounter
--- OUTSIDE RECORDS SUMMARY | 2022-03-13 10:54 | XMS_ITS | Encounter Summary ---
:1945 Author Organization [facility] Address [address] [place] [address] Care Team Providers Name Role Phone Lovely Vicente MD Primary Care Provider Reason for Referral Diagnostic Test (Routine) - Closed Specialty Diagnoses / Procedures Referred By Contact Refer red To Contact Cardiology Diagnoses Chronic systolic heart failure Danette Maxwell APRN [facility] Non-Inv Card Lab Procedures Echocardiogram Transthoracic(Leb) [facility] [place] [address] [place] [address] Referral ID Status Reason Start Date Expiration Date Visits V isits Requested Authorized [id number] Closed Specialty 07/17/2019 09/14/2019 1 1 Service Requested Encounter Details Date Type Department Care Team Description 01/16/2019 Office Visit Cardiology at [facility] Danette Maxwell, Chronic systolic heart failu re; [facility] STACIE Cardiomyopathy, ischemic; Drive [facility] Hx of thyroid cancer; [place], [place] DR [address] (arteriosclerotic heart disease); [phone] CARDIOLOGY MARIA VICTORIA (obstructive sleep apnea) on CPAP [phone] [place], [place] [address] (Wo rk) Social History Tobacco Use Types [...] K+ 4.6 today 6. Post-op atrial fibrillation [id number] 7 (CHF, HTN, DM, vascular disease, thromboembolism) Amiodarone discontinued Continue coumadin INR managed by PCP. 2.1 today 7. PAD 08/06/2017: Right 1st, 2nd, 3rd toe amputation 08/11/2017: Left??femoral arterial access, RLE??angiogram, Balloon angioplasty of R PT with Eleazar 2.5 x 80 10/25/2017: right popliteal-pedal bypass at [facility] 8. Hypothyrodism S/p thyroidectomy for [...] Nobles MD [facility] CARDIOLOGY [place], [place] [address] (Wo rk) 05/28/2022 Appointment Cardiology Zulma Dolan MD [facility] [place], [place] [address] (Wo rk) 05/28/2022 Laboratory Appointment Lab 05/28/2022 Office Visit Cardiology Zulma Dolan [place] [facility] [place] [address] Liz Poole PA [facility] [place] [address] 06/10/2022 Office Visit Dermatology Laura Scherer MD [facility] DR [address]MAT OLOGY [place], [place] [address] (Wo rk) documented as of this encounter Results ECHOCARDIOGRAM COMPLETE W CONTRAST (07/28/2019 8:19 AM EST) athologist Signature EF 40 HEARTLAB SYSTEM Specimen (Source) Anatomical Location Collection Method / Collectio n Time Received Time / Laterality Volume 07/28/2019 Narrative HEARTLAB SYSTEM - 07/28/2019 8:38 AM EST Procedure: ?Transthoracic Echocardiogram Patient: ?NATALYA Mccollum ? (Age): 1945(74y) Med Rec#: ? [id number] ?Sex: ?M ? Site Loc: ? [facility] ?Ht / Wt: ??172(cm)/81(kg) Pt. Loc: ?Echo Lab ?BSA: ?1.94 Study Date: ?? 07/28/2019 ?Pt. Type: Outpatient Tape: ? Referring: MARY ELLEN Reading: Ifeanyi Truong ([id number]) Herbologist: Fadumo Flanagan RDCS, FASE Diagnosis: *Chronic systolic [...] E-wave Vmax ?1 ?m/sec ? MV deceleration srri889.5 ? msec ? MV A-wave Vmax ?1 [...] ? Pulmonic Valve/Qp:Qs ?Value ?Units (Range) ? [place] end-diastolic Vma1.1 ?m/sec ? Wall Motion: Segment Name ?Rest ? Base-Anteroseptal ?? Normal ? Base-Anterior ? Normal ? Base-Anterolateral ??Normal ? Base-Posterolateral Normal ? Base-Inferior ? Akinetic ? Base-Inferoseptal ?? Normal ? Mid-Anteroseptal ?Normal ? Mid-Anterior ?Hypokinetic ? Mid-Anterolateral ?? Normal ? Mid-Posterolateral ??Normal ? Mid-Inferior ?Hypokinetic ? Mid-Inferoseptal ?Normal ? [place]-Septal ? Normal ? [place]-Anterior ? Hypokinetic ? [place]-Lateral ?Normal ? [place]-Inferior ? Akinetic ? [place]-Tip ?Hypokinetic ? This report has been electronically sign ed by: _ Ifeanyi Truong M.D. ? 07/28/2019 0 8:38:01 Images reviewed and interpretation verif ied [facility] Cardiac Ultrasound Laboratory Procedure Note Ifeanyi Truong MD - 07/28/2019Formatt ing of this note might be different from the original. Procedure: Transthoracic Echocardiogram Patient: NATALYA MCBRIDE(Age): [birth year]74y) Med Rec#: [id number] Sex: M Site Loc: [facility] Ht / Wt: 172(cm)/81(kg) Pt. Loc: Echo Lab BSA: 1.94 Study Date: 07/28/2019 Pt. Type: Outpati ent Tape: Referring: MARY ELLEN Reading: Ifeanyi Truong ([id number]) Herbologist: Fadumo Flanagan RDCS, REGINA Diagnosis: *Chronic systolic [...] MV E-wave Vmax 1 m/sec MV deceleration hbqz261.5 msec MV A-wave Vmax 1 m/sec MV [...] 0.7 ratio Pulmonic Valve/Qp:Qs Value Units (Range) [place] end-diastolic Vma1.1 m/sec Wall Motion: Segment Name Rest Base-Anteroseptal Normal Base-Anterior Normal Base-Anterolateral Normal Base-Posterolateral Normal Base-Inferior Akinetic Base-Inferoseptal Normal Mid-Anteroseptal Normal Mid-Anterior Hypokinetic Mid-Anterolateral Normal Mid-Posterolateral Normal Mid-Inferior Hypokinetic Mid-Inferoseptal Normal [place]-Septal Normal [place]-Anterior Hypokinetic [place]-Lateral Normal [place]-Inferior Akinetic [place]-Tip Hypokinetic This report has been electronically sign ed by: _ Ifeanyi Truong M.D. 07/28/2019 08:38:0 1 Images reviewed and interpretation verif ied [facility] Cardiac Ultrasound Laboratory Danette Maxwell APRN ECHO ORDERABLES Performing Organization Address City/State/ZIP Code Phon e Number HEARTLAB SYSTEM (ABNORMAL) Basic Metabolic Panel (non-fasting) (01/16/2019 7:49 AM EDT) P athologist Signature Glucose Lvl 105 65 - 199 [facility] mg/[facility] LABORATORY Comment: Diabetes: >=200 mg/dL plus symp [...] of body mass or the acutely ill. http://[email or web address] eGFR 79 >=60 mL/min/1.73 m?? [facility] LABORATORY Comment: The eGFR was calculated using the CKD-EP I equation. As with all creatinine based estimates of kidney function, eGFR values calculated with the CKD-EPI equation are not accurate in patients wi th acute kidney failure, extremes of body mass or the acutely ill. [email or web address]/DHMCnkf Specimen Anatomical Collection Method Collection Time Receive d Time (Source) Location / / Volume Laterality Blood specimen 01/16/2019 7:49 AM 019 7:55 (specimen) EDT AM EDT Resulting Agency Comment Spec In Lab Danette Maxwell APRN CHEMISTRY ORDERABLES Performing Organization Address City/State/ZIP [place] [address] (ABNORMAL) pro-Brain Natriuretic Peptide [...] Organization Address City/State/ZIP [place] [address] documented in this encounter Visit Diagnoses Diagnosis Chronic systolic heart failure Cardiomyopathy, ischemic Other specified forms of chronic ischemi c heart disease Hx of thyroid cancer Personal history of malignant neoplasm o f thyroid ASHD (arteriosclerotic heart disease) Coronary atherosclerosis of unspecified type of vessel, [place] or graft MARIA VICTORIA (obstructive sleep apnea) on CPAP Obstructive sleep apnea (adult) (pediatr ic) Chronic systolic heart failure documented in this encounter Care Teams Continuous Improvement Intern Relationship Specialty Start Date End Date Lovely Vicente MD PCP - General 04/16/[address] [place] [address] [address] [place] [address] documented as of this encounter
--- OUTSIDE RECORDS SUMMARY | 2022-03-13 10:54 | XMS_ITS | Encounter Summary ---
:1945 Author Organization [facility] [place] [address] Care Team Providers Name Role Phone Lovely Vicente MD Primary Care Provider Encounter Details Date Type Department Care Team Description 11/07/2019 TH Visit Cardiology at [facility] Danette Maxwell (arteriosclerotic heart disease); (TeleHealth) [facility] STACIE Gomes Cardiomyopathy, ischemic; Drive [facility] S/P CABG x 3; [place], [place] MARIA VICTORIA (obstructive sleep apnea) on CPAP [phone] CARDIOLOGY [phone] [place], [place] [address] Social History Tobacco Use Types [...] regurgitation present. 07/07/2019 - 07/21/2019 Zio Patch Steel Erector The patient had a minimum heart rate [...] at last check 6. Post-op atrial fibrillation [id number] (CHF, HTN, DM, vascular disease, thromboembolism) Amiodarone discontinued Continue coumadin INR managed by PCP 7. PAD 08/06/2017: Right 1st, 2nd, 3rd toe amputation 08/11/2017: Left??femoral arterial access, RLE??angiogram, Balloon angioplasty of R PT with Eleazar 2.5 x 80 10/25/2017: right popliteal-pedal bypass at [facility] Continue Coumadin 8. Hypothyrodism S/p thyroidectomy [...] Vitaliy Nobles MD [facility] CARDIOLOGY [place], [place] [address] (Wo rk) 05/28/2022 Appointment Cardiology Zulma Dolan MD [facility] [place], [place] [address] (Wo rk) 05/28/2022 Laboratory Appointment Lab 05/28/2022 Office Visit Cardiology Zulma Dolan MD [facility] [place] [address] Liz Poole PA [facility] [place] [address] 06/10/2022 Office Visit Dermatology Laura Scherer MD [facility] DR [address] [place], [place] 0[address] (Wo rk) documented as of this encounter Visit Diagnoses Diagnosis ASHD (arteriosclerotic heart disease) Coronary atherosclerosis of unspecified type of vessel, [place] or graft Cardiomyopathy, ischemic Other specified forms of chronic ischemi c heart disease S/P CABG x 3 Postsurgical aortocoronary bypass status MARIA VICTORIA (obstructive sleep apnea) on CPAP Obstructive sleep apnea (adult) (pediatr ic) documented in this encounter Care Teams Harp Regulator Relationship Specialty Start Date End Date Lovely Vicente MD PCP - General 04/16/[address] [place] [address] documented as of this encounter
--- OUTSIDE RECORDS SUMMARY | 2022-03-13 10:54 | XMS_ITS | Encounter Summary ---
:1945 Author Organization [facility] [place] [address] Care Team Providers Name Role Phone Lovely Vicente MD Primary Care Provider Reason for Visit Reason Comments Follow-up Skin Check Encounter Details Date Type Department Care Team Description 01/06/2018 Office Visit Dermatology at [facility]; Abdelrahman HOOPER MD History of melanoma; [address] [facility] [place] [address] [facility] [place], [place] [address] Social History Tobacco Use Types [...] Vitaliy Nobles MD [facility] CARDIOLOGY [place], [place] [address] (Wo rk) 05/28/2022 Appointment Cardiology Zulma Dolan MD [facility] [place], [place] [address] (Wo rk) 05/28/2022 Laboratory Appointment Lab 05/28/2022 Office Visit Cardiology Zulma Dolan MD [facility] [place] [address] Liz Poole PA [facility] [place] [address] 06/10/2022 Office Visit Dermatology Laura Scherer MD [facility] DR [address]DERMAT [place]LOGY [place], [place] [address] (Wo rk) documented as of this encounter Visit Diagnoses Diagnosis Multiple nevi Benign neoplasm of skin, site unspecifie d History of melanoma Personal history of malignant melanoma o f skin Seborrheic keratosis Other seborrheic keratosis documented in this encounter Care Teams Insurance Sales Agent Relationship Specialty Start Date End Date Lovely Vicente MD PCP - General 04/16/15 [facility] [address] [place] [address] documented as of this encounter
--- OUTSIDE RECORDS SUMMARY | 2022-03-13 10:54 | XMS_ITS | Encounter Summary ---
:1945 Author Organization [facility] [place] [address] Care Team Providers Name Role Phone Lovely Vicente MD Primary Care Provider Encounter Details Date Type Department Care Team Description 08/15/2018 Laboratory Lab 3L Barbara Chronic systoli c heart failure; Appointment [facility] ASCVD (ar teriosclerotic cardiovascular disease) [place] [id number] Social History Tobacco Use Types Packs/Day Years [...] MD [facility] DR [place]LE [place], [place] [address] (Wo rk) 05/28/2022 Appointment Cardiology Zulma Dolan MD [facility] [address] [place], [place] [address] (Wo rk) 05/28/2022 Laboratory Appointment Lab 05/28/2022 Office Visit Cardiology Zulma Dolan MD [facility] [place] [address] Liz Poole PA [facility] [place] [address] 06/10/2022 Office Visit Dermatology Laura Scherer MD [facility] ER [address]-DERMAT [facility] [place] [place] [address] (Wo rk) documented as [...] Lvl 116 65 - 199 [facility] mg/dL [facility] LABORATORY Comment: Diabetes: >=200 [...] of body mass or the acutely ill. http://Zonder/[facility] PRAGUEnkf eGFR 79 >=60 mL/min/1.73 m?? [facility] LABORATORY Comment: The eGFR was calculated using the CKD-EP I equation. As with all creatinine based estimates of kidney function, eGFR values calculated with the CKD-EPI equation are not accurate in patients wi th acute kidney failure, extremes of body mass or the acutely ill. http://Zonder/[facility] PRAGUEnkf Specimen Anatomical Collection Method Collection Time Receive d Time (Source) Location / / Volume Laterality Blood specimen 08/15/2018 8:04 AM 019 8:20 (specimen) EST AM EST Resulting Agency Comment Spec In Lab Danette Maxwell APRN CHEMISTRY ORDERABLES Performing Organization Address City/State/[place] [address] Lipid Panel (08/15/2018 8:04 AM EST) athologist Signature Chol, Total 75 mg/dL [facility] LABORATORY Comment: Lower Risk: <200 mg/dL Average Risk: 200-239 mg/dL Higher Risk: >zx=826 mg/dL Triglycerides 185 mg/dL [facility] LABORATORY Comment: Average Risk/Lower Risk: <150 mg/dL Borderline High Risk: 150-199 mg/dL High Risk: 200-499 mg/dL Very High Risk: >pb=053 mg/dL HDL 32 mg/dL [facility] LABORATORY Comment: Males: ?? Higher Risk: <40 mg/dL Females: ?? HIgher Risk: <50 mg/dL LDL Cholesterol 6 mg/dL [facility] LABORATORY Comment: Lowest Risk: <100 mg/dL Lower Risk: 100-129 mg/dL Borderline High Risk: 130-159 mg/dL High Risk: 160-189 mg/dL Very High Risk: >oi=953 mg/dL Chol/HDL Ratio 2.3 ratio [facility] LABORATORY Lipid Interpretation See Note [facility] LABORATORY Comment: Lipid management should be guided by a p atient? s ASCVD risk, goals and preferences. ACC/AHA Guidelines recommend high intens ity statin if clinical ASCVD or LDL greater than or equal to 190 mg/dL. http://[employer].com/ZCJ-JJT-Rezmqqmgf Adults aged 40-75 with LDL 70-189 mg/dL should have their 10 year ASCVD risk estimated with the ACC/AHA ASCVD risk es timator http://tools.acc.org/RREBZ-Qtyz-Annwvqun r/ Statin should be discussed if risk [...] Organization Address City/State/[place] [address] (ABNORMAL) pro-Brain Natriuretic Peptide (08/15/2018 8:04 AM EST) athologist Signature ProBNP 1,797 (H) <=125 [facility] pg/mL [facility] LABORATORY Specimen Anatomical Collection Method Collection Time Receive d Time (Source) Location / / Volume Laterality Blood specimen 08/15/2018 8:04 AM 019 8:20 (specimen) EST AM EST Resulting Agency Comment Spec In Lab [place] Maxwell STACIE CHEMISTRY ORDERABLES Performing Organization Address City/State/ZIP Code Phon e Number [place] [phone] HOSP[address] LAB[address] documented in this encounter Visit Diagnoses Diagnosis Chronic systolic heart failure ASCVD (arteriosclerotic cardiovascular d isease) Unspecified cardiovascular disease documented in this encounter Care Teams Personal Lines Appraiser Relationship Specialty Start Date End Date Lovely Vicente MD PCP - General 04/16/[address] [place] [address] documented as of this encounter
--- OUTSIDE RECORDS SUMMARY | 2022-03-13 10:55 | XMS_ITS | Encounter Summary ---
:1945 Author Organization [facility] [address] Care Team Providers Name Role Phone Lovely Vicente MD Primary Care Provider Encounter Details Date Type Department Care Team Description 09/06/2017 Orders Only Vascular Surgery at [facility] Ninfa Clark, [facility] [place] [address] Social History Tobacco Use Types Packs/Day [...] [facility] DR TADE[address] [place], [place] [address] (Wo rk) 05/28/2022 Appointment Cardiology Zulma Dolan MD [facility] [address] [place] [address] (Wo rk) 05/28/2022 Laboratory Appointment Lab 05/28/2022 Office Visit Cardiology Zulma Dolan [place] [address] Liz Poole PA [facility] [place] [address] 06/10/2022 Office Visit Dermatology Laura Scherer MD [facility] DR [address]-DERMAT [place], [place] [address] (Wo rk) documented as of this encounter Visit Diagnoses Not on filedocumented in this encounter Care Teams Adult Basic Studies Teacher Relationship Specialty Start Date End Date Lovely Vicente MD PCP - General 04/16/[address] [place] [address] documented as of this encounter
--- OUTSIDE RECORDS SUMMARY | 2022-03-13 10:55 | XMS_ITS | Encounter Summary ---
:1945 Author Organization [facility] [place] [address] Care Team Providers Name Role Phone Lovely Vicente MD Primary Care Provider Reason for Referral Diagnostic Test (Routine) - Closed Specialty Diagnoses / Procedures Referred By Contact Refer red To Contact Cardiology Diagnoses Ischemic cardiomyopathy Acute on chronic systolic congestive heart failure Danette Maxwell APRN [facility] Non-Inv Card Lab Procedures Echocardiogram Transthoracic(Leb) [facility] [place] [address] [place] [address] Referral ID Status Reason Start Date Expiration Date Visits V isits Requested Authorized [id number] Closed Specialty 08/30/2017 08/30/2018 1 1 Service Requested Encounter Details Date Type Department Care Team Description 08/26/2017 Office Visit Cardiology at [facility] Danette Maxwell Ischemic cardiomyopathy; [facility] STACIE Gomes Acute on chronic systolic congestive hea rt failure ; Drive [facility] ASCVD (arteriosclerotic card iovascular disease); [place], [place] PAF (paroxysmal atrial fibrillation); [phone] CARDIOLOGY PAD (peripheral artery disease) [phone] [place], [place] [address] Social History Tobacco Use Types Packs/Day Years [...] painful and swollen right foot right d/t 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 pseudoaneurysm with embolization to the right [...] MD [facility] DR TADE[address] [place], [place] [address] (Wo rk) 05/28/2022 Appointment Cardiology Zulma Dolan MD [facility] [place] [address] (Wo rk) 05/28/2022 Laboratory Appointment Lab 05/28/2022 Office Visit Cardiology Zulma Dolan MD [facility] [place] [address] Liz Poole PA [facility] [place] [address] 06/10/2022 Office Visit Dermatology Laura Scherer MD [facility] DR TE[address] GR-DERMAT [place], [place] [address] (Wo rk) documented as of this encounter Results ECHOCARDIOGRAM COMPLETE W CONTRAST (10/07/2017 10:23 AM EDT) athologist Signature EF 45 HEARTLAB SYSTEM Specimen (Source) Anatomical Location Collection Method / Collectio n Time Received Time / Laterality Volume 10/07/2017 Narrative HEARTLAB SYSTEM - 10/07/2017 11:13 AM ED T Procedure: ?Transthoracic Echocardiogram Patient: ?NATALYA JENKINS E ? (Age): 1945(72y) Med Rec#: ? [id number] ?Sex: ?M ? Site Loc: ? [facility] ?Ht / Wt: ??173(cm)/82(kg) Pt. Loc: ?Echo Lab ?BSA: ?1.96 Study Date: ?? 10/07/2017 ?Pt. Type: Outpatient Tape: ? Referring: Danette Maxwell Reading: Iker Cuevas ([id number]) Customer Service Representative: Yonathan Bocanegra Diagnosis: *ICD-10-PCS Ischemic cardiomyopathy (I2 [...] E-wave Vmax ?1.2 ?m/sec ? MV deceleration [id number] ?msec ? MV A-wave Vmax ?1 ?m/sec [...] ? Mid-Inferior ?Hypokinetic ? Mid-Inferoseptal ?Hypokinetic ? [place]-Septal ? Akinetic ? [place]-Anterior ? Hypokinetic ? [place]-Lateral ?Hypokinetic ? [place]-Inferior ? Hypokinetic ? [place]-Tip ?Akinetic ? This report has been electronically sign ed by: _ Iker Cuevas M.D. ? 10/07/2017 11:12:34 Images reviewed and interpretation verif d [facility] Cardiac Ultrasound Laboratory Procedure Note Iker Cuevas MD - 10/07/2017Formatti ng of this note might be different from the original. Procedure: Transthoracic Echocardiogram Patient: NATALYA MCBRIDE(Age): [birth year]72y) Med Rec#: [id number] Sex: M Site Loc: [facility] Ht / Wt: 173(cm)/82(kg) Pt. Loc: Echo Lab BSA: 1.96 Study Date: 10/07/2017 Pt. Type: Outpati ent Tape: Referring: Danette Maxwell Reading: Iker Cuevas ([id number]) Customer Service Representative: Yonathan Bocanegra Diagnosis: *ICD-10-PCS Ischemic cardiomyopathy (I2 [...] MV E-wave Vmax 1.2 m/sec MV deceleration urux445 msec MV A-wave Vmax 1 m/sec MV [...] Akinetic Mid-Posterolateral Hypokinetic Mid-Inferior Hypokinetic Mid-Inferoseptal Hypokinetic [place]-Septal Akinetic [place]-Anterior Hypokinetic [place]-Lateral Hypokinetic [place]-Inferior Hypokinetic [place]-Tip Akinetic This report has been electronically sign ed by: _ Iker Cuevas M.D. 10/07/2017 11:12 :34 Images reviewed and interpretation verif ied [facility] Cardiac Ultrasound Laboratory Danette Maxwell APRN ECHO ORDERABLES Performing Organization Address City/State/ZIP Code Phon e Number HEARTLAB SYSTEM Basic Metabolic Panel (non-fasting) (08/26/2017 2:00 PM EST) P athologist Signature Glucose Lvl 98 65 - 199 [facility] mg/dL [facility] LABORATORY [...] or in patients with acute kidney failure. http://eCourier.co.uk/DHnkdep http://eCourier.co.uk/DHMCnkf Specimen Anatomical Collection Method Collection Time Receive d Time (Source) Location / / Volume Laterality Blood specimen 08/26/2017 2:00 PM 018 2:15 (specimen) EST PM EST Resulting Agency Comment Spec In Lab Danette Maxwell APRN CHEMISTRY ORDERABLES Performing Organization Address City/[facility]/[place] [address] (ABNORMAL) pro-Brain Natriuretic Peptide (08/26/2017 2:00 PM EST) P athologist Signature ProBNP 2,373 (H) <=125 [facility] pg/mL [facility] Specimen Anatomical Collection Method Collection Time Receive d Time (Source) Location / / Volume Laterality Blood specimen 08/26/2017 2:00 PM 018 2:15 (specimen) EST PM EST Resulting Agency Comment Spec In Lab Danette Maxwell APRN CHEMISTRY ORDERABLES Performing Organization Address City/State/[place] [address] documented in this encounter [...] documented in this encounter Care Teams Industrial Illuminating Engineer Relationship Specialty Start Date End Date Lovely Vicente MD PCP - General 04/16/15 [address] [facility] [address] [place] [address] documented as of this encounter
--- OUTSIDE RECORDS SUMMARY | 2022-03-13 10:55 | XMS_ITS | Encounter Summary ---
:1945 Author Organization [facility] [place] [address] Care Team Providers Name Role Phone Lovely Vicente MD Primary Care Provider Encounter Details Date Type Department Care Team Description 08/25/2017 Telephone Pain Management at [place], [place] [address] Social History Tobacco Use Types Packs/Day [...] Management Center Preauthorization Request Patient: Don Fatima [id number] Fax received from [employer] denying prior authorization for Lidocaine Patches prescribed by Barbra Soares APRN. RX insurance plan: [employer] RX insurance telephone: [phone] Patient Diagnosis: right foot pain secondary to PVD and ischemia ? Previous medications attempted: Tylenol, Tramadol, Dilaudid Authorization/Reference number: [id number] _x_ denied, provider and patient informed _x_ appeal initiated by provider, patient informed Angeles Rodrigez, RN documented in this encounter Plan of Treatment Upcoming Encounters Date Type Specialty Care Team Description 03/26/2022 Office Visit Cardiology Vitaliy Nobles MD [facility] CARDIOLOGY [place], [place] 0[address] (Wo rk) 05/28/2022 Appointment Cardiology Zulma Dolan MD [facility] [place], [place] [address] (Wo rk) 05/28/2022 Laboratory Appointment Lab 05/28/2022 Office Visit Cardiology Zulma Dolan MD [facility] [place] [address] Liz Poole PA [facility] [place] [address] 06/10/2022 Office Visit Dermatology Laura Scherer MD [facility] [address] [place], [place] [address] (Wo rk) documented as of this encounter Visit Diagnoses Not on filedocumented in this encounter Care Teams Consumer Loan Manager Relationship Specialty Start Date End Date Lovely Vicente MD PCP - General 04/16/[address] [place] [address] documented as of this encounter
--- OUTSIDE RECORDS SUMMARY | 2022-03-13 10:55 | XMS_ITS | Encounter Summary ---
:1945 Author Organization [facility] [place] [address] Care Team Providers Name Role Phone Lovely Vicente MD Primary Care Provider Reason for Referral Consultation (Routine) - Specialty Diagnoses / Procedures Referred By Contact Refer red To Contact Wound Healing Center Diagnoses Atheroembolism of foot, right Delayed surgical wound healing, subsequent encounter Aurelia Rivera PA [address] [facility] [place] [address] Referral ID Status Reason Start Date Expiration Date Visits V isits Requested Authorized [id number] Consult, 09/08/2017 03/07/2018 1 1 Test & Treat Reason for Visit Reason Comments Wound Check My foot hurts Encounter Details Date Type Department Care Team Description 09/07/2017 Office Visit Vascular Surgery at MiguelAurelia PA Atheroembolism of foot, right; [facility] [address] [facility] Delayed surgical wound healing, subseque nt encounter [facility] [place] [phone] Social History Tobacco Use Types Packs/Day Years [...] at home for VAC dressing changes from [facility]. Since his last visit his right forefoot wound [facility] [...] COMPLETE performed by Manny Mcknight MD at [facility] OR Social Hx: Social History Substance Use [...] MD [facility] [address] T[address] [place], [place] 0[address] (Wo rk) 05/28/2022 Appointment Cardiology Zulma Dolan MD [facility] [place], [place] [address] (Wo rk) 05/28/2022 Laboratory Appointment Lab 05/28/2022 Office Visit Cardiology Zulma Dolan MD [facility] [place] [address] Liz Poole PA [facility] [place] [address] 06/10/2022 Office Visit Dermatology Laura Scherer MD [facility] [address] [place], [place] 0375 (Wo rk) Scheduled Referrals Name Type Priority Associated Diagnoses Order S chedule Referral to Wound Outpatient Referral Routine Atheroembolism o f foot, Ordered: Clinic right 09/08/2017 Delayed surgical wound healing, subsequent encounter documented as of this encounter Visit Diagnoses Diagnosis Atheroembolism of foot, right Delayed surgical wound healing, subseque nt encounter documented in this encounter Care Teams Meat Selector Relationship Specialty Start Date End Date Lovely Vicente MD PCP - General 04/16/15 [address] [facility] [address] [place] [address] documented as of this encounter
--- OUTSIDE RECORDS SUMMARY | 2022-03-13 10:55 | XMS_ITS | Encounter Summary ---
:1945 Author Organization [facility] [place] [address] Care Team Providers Name Role Phone Lovely Vicente MD Primary Care Provider Encounter Details Date Type Department Care Team Description 08/19/2017 Office Visit Vascular Surgery at [place], PAD (peripheral artery [facility] disease) [facility] [address] [place], [place] VASCULAR SURGERY [address] [place] [address] [phone] Social History Tobacco Use Types Packs/Day Years [...] Nobles MD [facility] [address] [place], [place] 0375 (Wo rk) 05/28/2022 Appointment Cardiology Zulma Dolan MD [facility] [address] [place], [place] [address] (Wo rk) 05/28/2022 Laboratory Appointment Lab 05/28/2022 Office Visit Cardiology Zulma Dolan MD [facility] [place] [address] Liz Poole PA [facility] [place] [address] 06/10/2022 Office Visit Dermatology Laura Scherer MD [facility] [address] [place], [place] [address] (Wo rk) documented as of this encounter Visit Diagnoses Diagnosis PAD (peripheral artery disease) Peripheral vascular disease, unspecified documented in this encounter Care Teams Dairy Farmworker Relationship Specialty Start Date End Date Lovely Vicente MD PCP - General 04/16/[address] [place] [address] documented as of this encounter
--- OUTSIDE RECORDS SUMMARY | 2022-03-13 10:55 | XMS_ITS | Encounter Summary ---
:1945 Author Organization [facility] [place] [address] Care Team Providers Name Role Phone Lovely Vicente MD Primary Care Provider Encounter Details Date Type Department Care Team Description 10/05/2017 Telephone Cardiology at [facility] Tamiko Sin MD [facility] [place] [address] CARDIOLOGY DEPT [phone] [place], [place] 0[address] (Wo rk) Social History [...] Vitaliy Nobles MD [facility] [address] [place] [address] (Wo rk) 05/28/2022 Appointment Cardiology Zulma Dolan MD [facility] [address] [place] [address] (Wo rk) 05/28/2022 Laboratory Appointment Lab 05/28/2022 Office Visit Cardiology Zulma Dolan MD [facility] [place] [address] Liz Poole PA [facility] [place] [address] 06/10/2022 Office Visit Dermatology Laura Scherer MD [facility] [address] [place], [place] [address] (Wo rk) documented as of this encounter Visit Diagnoses Not on filedocumented in this encounter Care Teams Public Relations Counselor Relationship Specialty Start Date End Date Lovely Vicente MD PCP - General 04/16/[address] [place] [address] documented as of this encounter
--- OUTSIDE RECORDS SUMMARY | 2022-03-13 10:55 | XMS_ITS | Encounter Summary ---
:1945 Author Organization [facility] [place] [address] Care Team Providers Name Role Phone Lovely Vicente MD Primary Care Provider Reason for Visit Reason Comments Follow-up Encounter Details Date Type Department Care Team Description 08/19/2017 Office Visit Cardiac Surgery at [place], Jock S/P C ABG (coronary [facility], artery bypass graft) [facility] [place] CARD[place]ACIC [address] SURGERY [phone] [place], [place] [address] Social History Tobacco Use Types [...] office. Best personal regards, Yuan Retana MD [phone] documented in this encounter Plan of Treatment Upcoming Encounters Date Type Specialty Care Team Description 03/26/2022 Office Visit Cardiology Vitaliy Nobles MD [facility] [address] [place], [place] [address] (Wo rk) 05/28/2022 Appointment Cardiology Zulma Dolan MD [facility] [address] [place] [place] [address] (Wo rk) 05/28/2022 Laboratory Appointment Lab 05/28/2022 Office Visit Cardiology Zulma Dolan MD [facility] [place] [address] Liz Poole PA [facility] [place] [address] 06/10/2022 Office Visit Dermatology Laura Scherer MD [facility] DR [address] [place], [place] 0[address] (Wo rk) documented as [...] 454 ms MUSE SYSTEM (Bezet) Calculated P [place] 20 degrees MUSE SYSTEM Calculated R [place] -29 degrees MUSE SYSTEM Calculated T [place] 121 degrees MUSE SYSTEM INTERPRETATION Normal sinus rhythm MUSE SYSTEM Inferior infarct (cited on or before 25-JAN-2013) Anterior 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) T wave abnormality, consider lateral ischemia Abnormal ECG When compared with ECG of 06-AUG-2017 12:37, No signif icant change was found Confirmed by MD Luci, Taurus Braun ([id number]) on 08/19/2017 1 0:37:38 PM Specimen Anatomical [...] status documented in this encounter Care Teams Etiologist Relationship Specialty Start Date End Date Lovely Vicente MD PCP - General 04/16/15 [facility] [address] [place] [address] documented as of this encounter
--- OUTSIDE RECORDS SUMMARY | 2022-03-13 10:55 | XMS_ITS | Encounter Summary ---
:1945 Author Organization [facility] [place] [address] Care Team Providers Name Role Phone Lovely Vicente MD Primary Care Provider Encounter Details Date Type Department Care Team Description 09/07/2017 Office Visit Endocrinology at [facility] Maria Ines Stallings of [facility] MD [place] [address] CENTER [phone] ENDOCRINOLOGY DEPT [place], [place] [address] Social History Tobacco Use Types [...] [facility] ER DR TADEO [place], [place] [address] (Wo rk) 05/28/2022 Appointment Cardiology Zulma Dolan MD [facility] [place], [place] [address] (Wo rk) 05/28/2022 Laboratory Appointment Lab 05/28/2022 Office Visit Cardiology Zulma Dolan MD [facility] [place] [address] Liz Poole PA [facility] [place] [address] 06/10/2022 Office Visit Dermatology Laura Scherer MD [facility] [address] [place], [place] 0[address] (Wo rk) documented as of this encounter Visit Diagnoses Diagnosis Hx of papillary thyroid carcinoma Personal history of malignant neoplasm o f thyroid documented in this encounter Care Teams Crew Team Member Relationship Specialty Start Date End Date Lovely Vicente MD PCP - General 04/16/[address] [place] [address] documented as of this encounter
--- OUTSIDE RECORDS SUMMARY | 2022-03-13 10:55 | XMS_ITS | Encounter Summary ---
:1945 Author Organization [facility] [place] [address] Care Team Providers Name Role Phone Lovely Vicente MD Primary Care Provider Reason for Visit Reason Comments Follow-up I'm having trouble with the VAC Encounter Details Date Type Department Care Team Description 08/26/2017 Office Visit Vascular Surgery at [facility] STEPHANIE Mercado Atheroembolism of foot, right; [facility] [address] Delayed surgical wound healing, initial encounter; [facility] VASCULAR SURG [place] Acute on chronic systolic congestive hea rt failure ; [place], [place] [address] [phone] Social History Tobacco Use Types Packs/Day Years [...] home [facility]. However, since discharge from [facility] he has had some difficulty with continuation [...] [facility] MAIN OR ??? PRO AMPUTATION FOOT, TRANSMETATARSAL Right 08/09/2017 AMPUTATION, TRANSMETATARSAL (WRVU 12.71) performed by Yonathan Smith MD at [facility] MAIN [...] [facility] ENDOSCOPY ??? PRO DRESSING CHANGE UNDER ANESTHESIA Right 08/11/2017 (MSURG) DRESSING CHANGE (FOR OTHER THAN IVAN) UNDER ANES. (WRVU 0.86) performed by Lamar Smith MD at [facility] MAIN OR ??? PRO ENDOSCOPY W/VIDEO-ASST VEIN HARVEST, CABG Right 07/07/2017 ENDOSCOPIC HARVEST VEIN(S) FOR CABG (WRVU 0.31) performed by Yuan Retana MD at [facility] MAIN OR ??? PRO THYROIDECTOMY 03/28/2013 THYROIDECTOMY, TOTAL OR COMPLETE performed by Manny Mcknight MD at [facility] MAIN OR Social Hx: Social History [...] ankle only PT Dopplerable Psych: AAOx3 Labs/Studies: JUILAN/TcPO2: 08/26/17 Right ?Pressure (mmHg) ?? JULIAN ??Waveform [...] Nobles MD [facility] [address] [place], [place] [address] (Wo rk) 05/28/2022 Appointment Cardiology Zulma Dolan MD [facility] [address] [place], [place] [address] (Wo rk) 05/28/2022 Laboratory Appointment Lab 05/28/2022 Office Visit Cardiology Zulma Dolan MD [facility] [place] [address] Liz Poole PA [facility] [place] [address] 06/10/2022 Office Visit Dermatology Laura Scherer MD [facility] [address] [place], [place] 0[address] (Wo rk) documented as of [...] Test Analysis Performed At [facility] Range Method Time Signature VB Text Department: Vascular Surgery Lab VASCUBASE Report Patient: [id number] (GREGORY FATIMA) CPT: 15486 ICD10: T81.89XA;I75.021 Referring Physician: ARIK CLEMENT ?? [...] Signature Glucose Lvl 98 65 - 199 [facility] mg/dL [facility] Comment: [...] [facility] Estimated GFR >60 >=60 [facility]EN[facility]AL [...] Address City/State/[place] [address] (ABNORMAL) pro-Brain Natriuretic Peptide (08/26/2017 2:00 PM EST) P athologist Signature ProBNP 2,373 (H) <=125 [facility] Specimen Anatomical Collection Method Collection Time Receive d Time (Source) Location / / Volume Laterality Blood specimen 08/26/2017 2:00 PM 018 2:15 (specimen) EST PM EST Resulting Agency Comment Spec In Lab Danette A Hans QUINONES CHEMISTRY ORDERABLES Performing Organization Address City/State/[place] [address] documented in this encounter Visit Diagnoses Diagnosis Atheroembolism of foot, right Delayed surgical wound healing, initial encounter Acute on chronic systolic congestive hea rt failure Acute on chronic systolic heart failure Ischemic cardiomyopathy Other specified forms of chronic ischemi c heart disease documented in this encounter Care Teams Civil Cadd Technician Relationship Specialty Start Date End Date Lovely Vicente MD PCP - General 04/16/[address] [place] [address] documented as of this encounter
--- OUTSIDE RECORDS SUMMARY | 2022-03-13 10:55 | XMS_ITS | Encounter Summary ---
:1945 Author Organization [facility] [address] Care Team Providers Name Role Phone Lovely Vicente MD Primary Care Provider Encounter Details Date Type Department Care Team Description 10/05/2017 Unscheduled Cardiology at [facility] RONNIE Sin PATIENT NOT SEEN Encounter [facility] Tamiko Martinez MD [facility] [address] CARDIOLOGY DEPT [phone] [place] [address] Social History Tobacco Use Types Packs/Day Years [...] [facility] [address] [place], [place] [address] (Wo rk) 05/28/2022 Appointment Cardiology Zulma Dolan MD [facility] [place], [place] [address] (Wo rk) 05/28/2022 Laboratory Appointment Lab 05/28/2022 Office Visit Cardiology Zulma Dolan MD [facility] [place] [address] Liz Poole PA [facility] [place] [address] 06/10/2022 Office Visit Dermatology Laura Scherer MD [facility] [address] [place], [place] 0[address] (Wo rk) documented as of this encounter Visit Diagnoses Diagnosis DH PATIENT NOT SEEN documented in this encounter Care Teams Lockstitch Machine Operator Relationship Specialty Start Date End Date Lovely Vicente MD PCP - General 04/16/[address] [place] [address] documented as of this encounter
--- OUTSIDE RECORDS SUMMARY | 2022-03-13 10:55 | XMS_ITS | Encounter Summary ---
:1945 Author Organization [facility] Address [facility] [place] [address] Care Team Providers Name Role Phone Lovely Vicente MD Primary Care Provider Encounter Details Date Type Department Care Team Description 10/07/2017 Office Visit Cardiology at [facility] Danette Maxwell Chronic systolic heart failu re; [facility] A, CREDENTIALER S/P CABG x 3; Drive [facility] On amiodarone therapy; [place], [place] Atrial fibrillation, unspecified type; [phone] CARDIOLOGY ASCVD (arteriosclerotic cardiovascular d isease) [phone] [place], [place] [address] Social History Tobacco Use Types [...] - documented in this encounter Progress Notes [place] Danette A, CREDENTIALER - 10/07/2017 11:20 AM EDT ID and [...] painful and swollen 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 [...] by Dr. Espino On IV antibiotics at [facility] Today: Mr. Fatima is accompanied by [...] see Dr. Bains well at [facility] and follow his wound on his right lower extremity. And she will continue to direct antibiotic treatment. Ihave asked that the echocardiogram results be faxed to Dr. Zurita at [facility]. 1. ASCVD Continue ASA, BB and statin [...] [facility]. Currently receiving IV antibiotics at [facility] ? Plan: 1. A review of [...] Nobles MD [facility] [address] [place], [place] 0[address] (Wo rk) 05/28/2022 Appointment Cardiology Zulma Dolan MD [facility] [address] [place] 0[address] (Wo rk) 05/28/2022 Laboratory Appointment Lab 05/28/2022 Office Visit Cardiology Zulma Dolan MD [facility] [place] [address] Liz Poole PA [facility] [place] [address] 06/10/2022 Office Visit Dermatology Laura Scherer MD [facility] [address] [place], [place] 0[address] (Wo rk) documented as of this encounter Results (ABNORMAL) Basic Metabolic Panel (non-fasting) (10/07/2017 8:48 AM EDT) P athologist Signature Glucose Lvl 99 65 - 199 [facility] mg/dL [facility] Comment: Diabetes: >=200 mg/dL plus symp toms BUN 27 (H) 10 - 20 mg/dL [facility] Creatinine 1.07 0.80 - 1.50 [...] - 15 mmol/L [facility] Calcium 8.4 (L) 8.5 - 10.5 mg/dL [facility] Estimated GFR >60 >=60 [facility] Comment: The reported eGFR should be multiplied b y 1.2 for patients. The MDRD is not an appropriate measure o f renal function for patients with body mass extremes or in patients with acute kidney failure. http://ShowMe VIdeoke.[employer]/DHnkdep http://Secret/DHMCnkf Specimen Anatomical Collection Method Collection Time Receive d Time (Source) Location / / Volume Laterality Blood specimen 10/07/2017 8:48 AM 018 8:50 (specimen) EDT AM EDT Resulting Agency Comment Spec In Lab Danette Maxwell APRN CHEMISTRY ORDERABLES Performing Organization Address City/State/ZIP Code Phon e Number [place] [phone] (ABNORMAL) pro-Brain Natriuretic Peptide (10/07/2017 8:48 AM EDT) P athologist Signature ProBNP 1,170 (H) <=125 [facility] pg/mL [facility] Specimen Anatomical Collection Method Collection Time Receive d Time (Source) Location / / Volume Laterality Blood specimen 10/07/2017 8:48 AM 018 8:50 (specimen) EDT AM EDT Resulting Agency Comment Spec In Lab Danette Maxwell APRN CHEMISTRY ORDERABLES Performing Organization Address City/State/[place] [address] documented in this encounter Visit Diagnoses Diagnosis Chronic systolic heart failure S/P CABG x 3 Postsurgical aortocoronary bypass status On amiodarone therapy Atrial fibrillation, unspecified type ASCVD (arteriosclerotic cardiovascular d isease) Unspecified cardiovascular disease documented in this encounter Care Teams Basket Bottom Machine Operator Relationship Specialty Start Date End Date Lovely Vicente MD PCP - General 04/16/[address] [place] [address] documented as of this encounter
--- OUTSIDE RECORDS SUMMARY | 2022-03-13 10:55 | XMS_ITS | Encounter Summary ---
:1945 Author Organization [place] [address] Care Team Providers Name Role Phone Lovely Vicente MD Primary Care Provider Reason for Referral Diagnostic Test (Routine) - Closed Specialty Diagnoses / Procedures Referred By Contact Refer red To Contact Cardiology Diagnoses Ischemic cardiomyopathy Acute on chronic systolic congestive heart failure Danette Maxwell APRN [facility] Non-Inv Card Lab Procedures Echocardiogram Transthoracic(Leb) [facility] [place] [address] [place] [address] Referral ID Status Reason Start Date Expiration Date Visits V isits Requested Authorized [id number] Closed Specialty 08/30/2017 08/30/2018 1 1 Service Requested Reason for Visit Diagnostic Test (Routine) - Closed Specialty Diagnoses / Procedures Referred By Contact Refer red To Contact Cardiology Diagnoses Ischemic cardiomyopathy Acute on chronic systolic congestive heart failure Danette Maxwell APRN [facility] Non-Inv Card Lab Procedures Echocardiogram Transthoracic(Leb) [facility] [place] [address] [place] [address] Referral ID Status Reason Start Date Expiration Date Visits V isits Requested Authorized [id number] Closed Specialty 08/30/2017 08/30/2018 1 1 Service Requested Encounter Details Date Type Department Care Team Description 10/07/2017 Hospital Encounter Non-Invasive Ischemic cardiomyopathy; Cardiology Lab Barbara Craig on chronic systolic [place] [address] Social History Tobacco Use Types Packs/Day [...] Tablet Sustained 50 mg Release 24 hr AMIOdarone (CORDARONE; Take 1 tablet by mouth [...] [facility] CARDIOLOGY [place], [place] [address] (Wo rk) 05/28/2022 Appointment Cardiology Zulma Dolan MD [facility] [place], [place] [address] (Wo rk) 05/28/2022 Laboratory Appointment Lab 05/28/2022 Office Visit Cardiology Zulma Dolan MD [facility] [place] [address] Liz Poole PA [facility] Cardiology [place] [address] 06/10/2022 Office Visit Dermatology Laura Scherer MD [facility] [address]DERMAT [place], [place] [address] (Wo rk) documented as of [...] Mccollum ? (Age): 1945(72y) Med Rec#: ? [id number] ?Sex: ?M ? Site Loc: ? [facility] ?Ht / Wt: ??173(cm)/82(kg) Pt. Loc: ?Echo Lab ?BSA: ?1.96 Study Date: ?? 10/07/2017 ?Pt. Type: Outpatient Tape: ? Referring: Danette Maxwell Reading: Iker Cuevas ([id number]) Manager Appointment: Yonathan Bocanegra Diagnosis: *ICD-10-PCS Ischemic cardiomyopathy (I2 [...] E-wave Vmax ?1.2 ?m/sec ? MV deceleration [id number] ?msec ? MV A-wave Vmax ?1 ?m/sec [...] ? Mid-Inferior ?Hypokinetic ? Mid-Inferoseptal ?Hypokinetic ? [place]-Septal ? Akinetic ? [place]-Anterior ? Hypokinetic ? [place]-Lateral ?Hypokinetic ? [place]-Inferior ? Hypokinetic ? [place]-Tip ?Akinetic ? This report has been electronically sign ed by: _ Iker Cuevas M.D. ? 10/07/2017 11:12:34 Images reviewed and interpretation verif ied [facility] Cardiac Ultrasound Laboratory Procedure Note Iker Cuevas MD - 10/07/2017Formatti ng of this note might be different from the original. Procedure: Transthoracic Echocardiogram Patient: NATALYA MCBRIDE(Age): [birth year]72y) Med Rec#: [id number] Sex: M Site Loc: [facility] Ht / Wt: 173(cm)/82(kg) Pt. Loc: Echo Lab BSA: 1.96 Study Date: 10/07/2017 Pt. Type: Outpati ent Tape: Referring: Danette Maxwell Reading: Iker Cuevas ([id number]) Manager Appointment: Yonathan Bocanegra Diagnosis: *ICD-10-PCS Ischemic cardiomyopathy (I2 [...] MV E-wave Vmax 1.2 m/sec MV deceleration [id number] msec MV A-wave Vmax 1 m/sec MV [...] Akinetic Mid-Posterolateral Hypokinetic Mid-Inferior Hypokinetic Mid-Inferoseptal Hypokinetic [place]-Septal Akinetic [place]-Anterior Hypokinetic [place]-Lateral Hypokinetic [place]-Inferior Hypokinetic [place]-Tip Akinetic This report has been electronically sign ed by: _ Iker Cuevas M.D. 10/07/2017 11:12 :34 Images reviewed and interpretation verif ied [facility] Cardiac Ultrasound Laboratory Danette Maxwell APRN ECHO [...] Routine documented in this encounter Care Teams Hands And Dial Inspector Relationship Specialty Start Date End Date Lovely Vicente MD PCP - General 04/16/[address] [place] [address] [address] [place] [address] documented as of this encounter
--- OUTSIDE RECORDS SUMMARY | 2022-03-13 10:55 | XMS_ITS | Encounter Summary ---
:1945 Author Organization [place] [address] Care Team Providers Name Role Phone Lovely Vicente MD Primary Care Provider Encounter Details Date Type Department Care Team Description 09/16/2017 Hospital Encounter [place] [address] Social History Tobacco Use Types Packs/Day [...] Tablet Sustained 50 mg Release 24 hr lidocaine (XYLOCAINE) Infuse 1-2 mL into VAC [...] MD [facility] [address] TADE[address] [place], [place] [address] (Wo rk) 05/28/2022 Appointment Cardiology Zulma Dolan MD [facility] [place], [place] [address] (Wo rk) 05/28/2022 Laboratory Appointment Lab 05/28/2022 Office Visit Cardiology Zulma Dolan MD [facility] [place] [address] Liz Poole PA [facility] [place] [address] 06/10/2022 Office Visit Dermatology Laura Scherer MD [facility] DR TE[address]MAT [place], [place] 0[address] (Wo rk) documented as [...] Patholo gist Range Method Time Signature Surgical [id number] ? Location: [facility] Pathology RYAN Report The signing pathologist [...] [facility] Dept. of Pathology, [place], [place] CLINICAL INFORMATION Specimen Submitted: A - [...] Organization Address City/State/[place] [address] documented in this encounter Visit Diagnoses Not on filedocumented in this encounter Care Teams Industrial Controller Relationship Specialty Start Date End Date Lovely Vicente MD PCP - General 04/16/[address] [place] [address] documented as of this encounter
--- OUTSIDE RECORDS SUMMARY | 2022-03-13 10:55 | XMS_ITS | Encounter Summary ---
:1945 Author Organization [facility] [place] [address] Care Team Providers Name Role Phone Lovely Vicente MD Primary Care Provider Encounter Details Date Type Department Care Team Description 08/19/2017 Hospital Encounter XRay at [facility] Martha Teague, S/P CABG x 3 [address] [facility] [place] [address] [place] [address] RD [phone] [facility] [place], [place] [address] (Wo rk) Social History [...] Nobles MD [facility] CARDIOLOGY [place], [place] 0375 (Wo rk) 05/28/2022 Appointment Cardiology Zulma Dolan MD [facility] [address] [place], [place] [address] (Wo rk) 05/28/2022 Laboratory Appointment Lab 05/28/2022 Office Visit Cardiology Zulma Dolan MD [facility] [place] [address] Liz Poole PA [facility] [place] [address] 06/10/2022 Office Visit Dermatology Laura Scherer MD [facility] DR TE[address]DERMAT [place], [...] 2017 EXAMINATION: XR CHEST PA AND LATERAL ([employer]) CLINICAL HISTORY: CABG x 3 TECHNIQUE: PA [...] documented in this encounter Care Teams Manager Social Relationship Specialty Start Date End Date Lovely Vicente MD PCP - General 04/16/[address] [place] [address] documented as of this encounter
--- OUTSIDE RECORDS SUMMARY | 2022-03-13 10:55 | XMS_ITS | Encounter Summary ---
:1945 Author Organization [facility] [place] [address] Care Team Providers Name Role Phone Lovely Vicente MD Primary Care Provider Encounter Details Date Type Department Care Team Description 08/30/2017 [facility] ischemia [facility] [address] [place], [place] VASCULAR SURGERY [address] [place] [address] [phone] Social History Tobacco Use Types Packs/Day Years [...] MD - 08/30/2017 2:00 PM EST [facility] staff: Patient returns. He is doing [...] Nobles MD [facility] [address] TH[address] [place], [place] [address] (Wo rk) 05/28/2022 Appointment Cardiology Zulma Dolan MD [facility] Dr [place] [address] (Wo rk) 05/28/2022 Laboratory Appointment Lab 05/28/2022 Office Visit Cardiology Zulma Dolan MD [facility] [place] [address] Liz Poole PA [facility] [place] [address] 06/10/2022 Office Visit Dermatology Laura Scherer MD [facility] ER DR TEJA [address]MAT [place], [place] 0375 (Wo rk) documented as of this encounter Visit Diagnoses Diagnosis Critical lower limb ischemia Unspecified circulatory system disorder documented in this encounter Care Teams Dress Shoe Inspector Relationship Specialty Start Date End Date Lovely Vicente MD PCP - General 04/16/[address] [facility] [address] [place] [address] documented as of this encounter
--- OUTSIDE RECORDS SUMMARY | 2022-03-13 10:55 | XMS_ITS | Encounter Summary ---
:1945 [address] [facility] [place] [address] Care Team Providers Name Role Phone Lovely Vicente MD Primary Care Provider Encounter Details Date Type Department Care Team Description 09/06/2017 Telephone Vascular Surgery at [facility] Ninfa Clark, [place] [address] Social History Tobacco Use Types Packs/Day [...] MD [facility] DR TADE[address] [place], [place] 0[address] (Wo rk) 05/28/2022 Appointment Cardiology Zulma Dolan MD [facility] [address] [place], [place] [address] (Wo rk) 05/28/2022 Laboratory Appointment Lab 05/28/2022 Office Visit Cardiology Zulma Dolan MD [facility] [place] [address] Liz Poole PA [facility] [place] [address] 06/10/2022 Office Visit Dermatology Laura Scherer MD [facility] DR [address]MAT [place], [place] [address] (Wo rk) documented as of this encounter Visit Diagnoses Not on filedocumented in this encounter Care Teams Real Estate Analyst Relationship Specialty Start Date End Date Lovely Vicente MD PCP - General 04/16/[address] [place] [address] documented as of this encounter
--- OUTSIDE RECORDS SUMMARY | 2022-03-13 10:55 | XMS_ITS | Encounter Summary ---
:1945 Author Organization [facility] [place] [address] Care Team Providers Name Role Phone Lovely Vicente MD Primary Care Provider Encounter Details Date Type Department Care Team Description 09/07/2017 Laboratory Appointment Lab 3L [facility] Hx of [facility] [place] [address] Social History Tobacco Use Types Packs/Day Years [...] Nobles MD [facility] DR CARLYLE [place], [place] [address] (Wo rk) 05/28/2022 Appointment Cardiology Zulma Dolan MD [facility] [address] [place] [address] (Wo rk) 05/28/2022 Laboratory Appointment Lab 05/28/2022 Office Visit Cardiology Zulma Dolan MD [facility] [place] [address] Liz Poole PA [facility] [place] [address] 06/10/2022 Office Visit Dermatology Laura Scherer MD [facility] ER DR [address]DERMAT [place], [place] [address] (Wo rk) documented as of [...] EST) athologist Signature Thyroglobulin 1.4 <=54.9 [facility] ng/mL [facility] Comment: Thyroglobulin levels may be [...] Thyroglob Ab <20.0 0.0 - 40.0 IU/mL [facility] Comment: Assay performed is [...] Address City/State/ZIP Code Phon e Number [place] [id number] TSH (09/07/2017 2:41 PM EST) P athologist Signature TSH 3.93 0.27 - 4.20 [facility] mlU/ML [facility] Specimen Anatomical Collection Method Collection Time Receive d Time (Source) Location / / Volume Laterality Blood specimen 09/07/2017 2:41 PM 018 2:46 (specimen) EST PM EST Resulting Agency Comment Spec In Lab Luz Prescott MD CHEMISTRY ORDERABLES Performing Organization Address City/State/[place] [address] documented in this encounter Visit Diagnoses Diagnosis Hx of papillary thyroid carcinoma Personal history of malignant neoplasm o f thyroid documented in this encounter Care Teams Label Printer Relationship Specialty Start Date End Date Lovely Vicente MD PCP - General 04/16/[address] [place] [address] documented as of this encounter
--- OUTSIDE RECORDS SUMMARY | 2022-03-13 10:55 | XMS_ITS | Encounter Summary ---
:1945 Author Organization [facility] [place] [address] Care Team Providers Name Role Phone Lovely Vicente MD Primary Care Provider Encounter Details Date Type Department Care Team Description 09/03/2017 Telephone Vascular Surgery at [facility] Ninfa Clark, [place] [address] Social History Tobacco Use Types Packs/Day [...] help with the discomfort of the change. Computer Engineering Technologist told the V[facility] that I would ask [...] Cardiology Vitaliy Nobles MD [facility] [address] TADE[address] [place], [place] [address] (Wo rk) 05/28/2022 Appointment Cardiology Zulma Dolan MD [facility] [place], [place] [address] (Wo rk) 05/28/2022 Laboratory Appointment Lab 05/28/2022 Office Visit Cardiology Zulma Dolan MD [facility] [place] [address] Liz Poole PA [facility] [address] 06/10/2022 Office Visit Dermatology Laura Scherer MD [facility] DR [address]-DERMAT [place], [place] [address] (Wo rk) documented as of this encounter Visit Diagnoses Not on filedocumented in this encounter Care Teams Manager Student Services Relationship Specialty Start Date End Date Lovely Vicente MD PCP - General 04/16/[address] [place] [address] documented as of this encounter
--- OUTSIDE RECORDS SUMMARY | 2022-03-13 10:55 | XMS_ITS | Encounter Summary ---
:1945 Author Organization [place] [address] Care Team Providers Name Role Phone Lovely Vicente MD Primary Care Provider Encounter Details Date Type Department Care Team Description 08/26/2017 Hospital Encounter Vascular Lab at [facility], Athero embolism of foot, right; [place], [place] Delayed surgi nusrat wound healing, [place] [address] Social History Tobacco Use Types Packs/Day Years [...] 03/26/2022 Office Visit Cardiology Vtialiy Nobles MD [facility] [address] [place], [place] [address] (Wo rk) 05/28/2022 Appointment Cardiology Zulma Dolan MD [facility] [place], [place] [address] (Wo rk) 05/28/2022 Laboratory Appointment Lab 05/28/2022 Office Visit Cardiology Zulma Dolan MD [facility] [place] [address] Liz Poole PA [facility] [place] [address] 06/10/2022 Office Visit Dermatology Laura Scherer MD [facility] [address] [place], [place] 0[address] (Wo rk) documented as of [...] Value Ref Test Analysis Performed At [facility] Range Method Time Signature VB Text Department: Vascular Surgery Lab VASCUBASE Report Patient: [id number] (GREGORY HOANG) CPT: 29410 ICD10: T81.89XA;I75.021 Referring Physician: ARIK BLOOM ?? [...] encounter documented in this encounter Care Teams Chip Applying Machine Tender Relationship Specialty Start Date End Date Lovely Vicente MD PCP - General 04/16/[address] [place] [address] documented as of this encounter
--- OUTSIDE RECORDS SUMMARY | 2022-03-13 10:55 | XMS_ITS | Encounter Summary ---
:1945 Author Organization [facility] [place] [address] Care Team Providers Name Role Phone Lovely Vicente MD Primary Care Provider Reason for Visit Reason Onset Date Comments VNA Calls 08/30/2017 Encounter Details Date Type Department Care Team Description 08/30/2017 Telephone Vascular Surgery at [facility] Cora Reid RN [facility]NA Calls [facility] [place] [address] Social History Tobacco Use Types Packs/Day [...] 08/30/2017 11:16 AM EST Caller: Alfonso at [facility] [phone] Reason for call: Changing his wound vac on right foot; more slough, 100% yellow, now has a foul odor, STEPAHNIE Saab wanted her to know what is [...] had been in contact with [facility]'s Wound Care Nurse who advised [...] Nobles MD [facility] [address] TH[address] [place], [place] [address] (Wo rk) 05/28/2022 Appointment Cardiology Zulma Dolan MD [facility] [address] [place], [place] [address] (Wo rk) 05/28/2022 Laboratory Appointment Lab 05/28/2022 Office Visit Zulma Garrison MD [facility] [place] [address] Liz Poole PA [facility] [place] [address] 06/10/2022 Office Visit Dermatology Laura Scherer MD [facility] [address] [place], [place] [address] (Wo rk) documented as of this encounter Visit Diagnoses Not on filedocumented in this encounter Care Teams Executive Staff Assistant Relationship Specialty Start Date End Date Lovely Vicente MD PCP - General 04/16/[address] [place] [address] documented as of this encounter
--- OUTSIDE RECORDS SUMMARY | 2022-03-13 10:56 | XMS_ITS | Encounter Summary ---
:1945 [place] [address] Care Team Providers Name Role Phone Lovely Vicente MD Primary Care Provider Reason for Visit Auth/Cert Specialty Diagnoses / Procedures Referred By Contact Refer red To Contact Diagnoses Critical lower limb ischemia CELLULITIS RT FOOT Procedures EMERGENCY Referral ID Status Reason Start Date Expiration Date Visits Requ ested Visits Authorized [id number] 1 1 Encounter Details Date Type Department Care Team Description 08/06/2017 - Hospital Encounter 5 Yonathan Oneill lower limb ischemia; 08/16/2017 Su Flores MD Ischemic foot Hospital [facility] [address] [place] [id number] [phone] Social History Tobacco Use Types Packs/Day Years [...] 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 Patient [...] Dorsalis Pedis (Ankle) Artery ?132 ? 0.94 ??Harnett-Biphasic ? Posterior Tibial (Ankle) Artery ??154 ? 1.10 ??Harnett-Biphasic ? Fourth Toe ? 67 ?0.48 ?? [...] For any problems or questions please call [phone] ZELDA Smith, pleating supervisor Nurse Clinician For issues on weeknights after 5pm and weekends please call [phone] and ask for the Vascular Fellow main line station engineer. General Instructions None Future Appointments and Orders Future Appointments Provider Department Dept Phone 08/26/2017 4:00 PM Aurelia Rivera PA [facility] [phone] 09/07/2017 3:00 PM LAB, THREE L Lab 3L [facility] [phone] 09/07/2017 4:00 PM Luz Prescott MD [facility] [place] [phone] 09/09/2017 8:00 AM Barbra Soares APRN [facility] [place] [phone] Please bring a list of your current [...] For any problems or questions please call [phone] ZELDA Smith, pleating supervisor Nurse Clinician For issues on weeknights after 5pm and weekends please call [phone] and ask for the Vascular Fellow main line station engineer. documented in this encounter Medications at [...] Management Discharge Note Patient Destination: [facility] ([facility] [place]) [address] [place] [address] Transportation: with (at bedside) Time of Discharge: by 12 noon Level of Care: swing Patient Aware: yes Family Notified: yes Md to call report to: Yissel Quintero MACHINE STAKER already called RN to call report to: [phone] Shirin Wolf Office of Care Management Pager [phone] Shirin Wolf RN - 08/16/2017 10:50 AM EST [facility] has offered pt swing bed. Pt and accept bed. will transport via car. MACHINE STAKER Yissel Quintero aware; d/c paperwork will be completed by 12 noon. [facility] requests pt arrival by 1400 today; MACHINE STAKER, RN, and family aware. MACHINE STAKER called [facility] and was told that they prefer pt to arrive with wound vac dressing applied but clamped. MACHINE STAKER applied new wound vac dressing. RN has [facility] number to call report. PASSR completed; MACHINE STAKER paged to request provider signature in highlighted space. Indigo from [facility] notified via email that home wound vac now cancelled; STORES has picked up from room and order cancelled. Packet started and provided to refinery operator helper crude unit. Medicare important message explained to patient, patient signed. Copy provided to patient and signature page to OCM for inclusion in pt EMR. Radha Georges - 08/16/2017 10:34 AM EST Office of Care Management/Gear Hobber Operator Patient Name: Gregory Hoang : 1945 Patient has been offered a swing bed at [facility]. The patient will be transported by private transportation. No MD to MD report necessary Please call Nursing Report to [phone], ask for bootmaker hand. Info to accompany patient: Narcotic Prescriptions Copies of Medication Administration Records and IV sheets for past 10 days. Plan: Gear Hobber Operator will be available to the patient and Machine I Cutter-RN and/or Signals Intelligence Analyst for further assistance. Patient will be discharged to: [place] [phone] Radha Powers, Gear Hobber Operator Mira Black, VAMSI - 08/15/2017 10:05 PM EST [address] Flores to ask if he wanted to hold metoprolol dose. BP 95/58. OK to hold this dose Courtney Brito - 08/15/2017 3:26 PM EST Office of Care Management(OCM)/Gear Hobber Operator(RS)/ D/C Planning re : Patient is [...] status. 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 Await recommendations from PT. Covering pager #[phone]. 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 Receiving Inspector Kaitlin Saha, RN Pager #[phone] Payam Rosales - 08/13/2017 2:37 PM EST Occupational Therapist Rehab Manager Encounter Note Patient Name: Gregory Hoang : [id number] MR#: [id number] Admit Date: 08/06/2017 1:41 PM Hospital Day 7 days Narrative: Visited to introduce and assess acceptance of Occupational Therapist Rehab Manager services. Pt was awake, alert, oriented and in chair and family was there. Assessment:Patient coping positively with stresses of illness/hospitalization at this time. Pt says that he is hoping to get better and his family was there. Pt says that he has family care and supportand taking one day at time. Intervention and Outcome: Provided emotional support and encouraging presence. 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 A letter describing our affiliations was reviewed with them and theywere educated about their right to choose where referrals are placed. Patient requests referral to [facility] [employer]. PHONE: [phone] FAX: [phone]. And Home NPWT (Negative Pressure Wound Therapy) aka wound vac device made available to pt. Serial # confirmed. Reviewed [facility] Proof of Delivery/Assignment of Benefits Statement(POD/AOB) Form w patient or authorized agent signing on behalf of patient. Copy of POD/AOB provided to pt and other copy faxed to [employer] @ fax# [phone] Expected date of discharge: 08/12/2017. Referral routed to the Gear Hobber Operator for matching with agency/vendor and to provide any required information. Yonathan Starkey MD - 08/12/2017 8:05 AM EST vasc staff: Pain better. Needs ambulatory assessment. Try to use heel block shoe, if not flat shoe ok. 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 Address: [address] [place] [address] [place] [address] (home) Mobile: Telephone Information: Referring Provider: No [...] at [facility] ENDOSCOPY ??? PRO ENDOSCOPY W/VIDEO-ASST VEIN HARVEST, CABG Right 07/07/2017 ENDOSCOPIC HARVEST VEIN(S) FOR CABG (WRVU 0.31) performed by Yuan Retana MD at [facility] MAIN OR ??? PRO THYROIDECTOMY 03/28/2013 THYROIDECTOMY, TOTAL OR COMPLETE performed by Manny Mcknight MD at [facility] MAIN OR Date/Procedure Med's given/comments 08/10/17 RLE angio with multiple REMNANT SORTER to R posterior tibial artery Fentanyl 200 [...] Take 1 tablet by mouth daily. 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 Heparin gtt continues to run. Pt [...] of : 1945 AGE 72 y.o. Address: [address] [place] [address] [place] [address] (home) Mobile: Telephone Information: Referring Provider: No [...] at [facility] ENDOSCOPY ??? PRO ENDOSCOPY W/VIDEO-ASST VEIN HARVEST, CABG Right 07/07/2017 ENDOSCOPIC HARVEST VEIN(S) FOR CABG (WRVU 0.31) performed by Yuan Retana MD at [facility] MAIN OR ??? 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 Vascular resident main line station engineer and will forward result to the team prior to rounds. Melba Cruz RN - 08/08/2017 4:06 AM EST Fall Event Note Gregory Hoang [id number] 08/08/2017 Time of Fall: 0400 Was the [...] Starkey MD - 08/07/2017 4:32 PM EST [facility] staff: Patient was seen and examined [...] and foot dressed and wrapped by Dr. Mayorag. 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 Plan to try a small dose of [...] ready for the OR. 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 Patient [...] at [facility] ENDOSCOPY ??? PRO ENDOSCOPY W/VIDEO-ASST VEIN HARVEST, CABG Right 07/07/2017 ENDOSCOPIC HARVEST VEIN(S) FOR CABG (WRVU 0.31) performed by Yuan Retana MD at [facility] MAIN OR ??? PRO THYROIDECTOMY 03/28/2013 THYROIDECTOMY, TOTAL OR COMPLETE performed by Manny Mcknight MD at [facility] MAIN OR Functional Status/Social Hx: Quit [...] left blue toes with CTA showing R PECAN CLEANER pseudoaneurysm (now thrombosed) and occluded ATs bilaterally. [...] 2.5x80 5. Completion RLE angiogram 6. L PECAN CLEANER angiogram 7. 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 - L PECAN CLEANER angriogram demonstrated: High femoral bifurcation over the proximal half of the femoral head. L PECAN CLEANER access in the distal L PECAN CLEANER. - Closure device: Mynx Technical Procedure: The [...] for a 45cm 5F Destination. V18 and Idalia and QuickCross catheters were used to select [...] 5F. A stationed picture of the L PECAN CLEANER was performed as the patient was noted to have a very high bifurcation. Access appeared in the distal R PECAN CLEANER. Closure and sheath removal was performed with [...] PM EST 1440 report called to 5 [place] nurse Tessa AGUSTIN documented in this encounter [...] sit/sit to supine -- Bed Mobility Goal, Vernon Level independent -- Bed Mobility Goal, Date [...] days -- Transfer Training Goal, Activity Type cjy-ka-lqgpj/exali-hv-mbe -- Transfer Train Goal, [place] Level conditional independence -- Transfer Train Goal, [...] call cabello within reach, Hourly rounding by RN/REGIONAL ENGINEER. Bed alarm / Chair alarm. Patient-specific fall [...] MD - 08/15/2017 6:28 PM EST [facility] Operative Note Patient Name: Gregory Hoang : [id number] MR#: [id number] Case Date: 08/09/2017 Surgeon: Surgeon(s) and Role: [...] 2.5x80 5. Completion RLE angiogram 6. L PECAN CLEANER angiogram 7. Mynx closure Precautions/Restrictions: fall, sternal [...] feet/ bed -> bathroom). Anticipated Discharge Disposition: longterm facility, other (see comments) (or swing bed) Pager: [phone] BASSAM ELIAS, PT 08/14/2017 Inpatient Physical Therapy [...] to Achieve by discharge Gait Training Goal, Vernon Level conditional independence;set up required Gait Training [...] choices are: 1- [facility] PHONE: [phone] FAX: [phone] 2- [facility] ([facility] [place]) [address] [place] [address] 3- [facility]) [address] [place] [address] I have discussed Medicare/Private Insurance [...] RS/CM on Wednesday to follow-up. Covering pager #[phone] for today. Plan of Care - Henrique [...] with additional findings of pseudoaneurysm on R PECAN CLEANER and bilateral anterior tibial artery occlusions. Was [...] an outpatient once discharged. Have patient call [phone] to set up an appointment. Follow-up: Dermatology will sign-off for now. Please do not hesitate to contact us if you have any questions orconcerns. Impression and Recommendations discussed with primary team on 08/13/2017. Karo Henderson MD Resident in Dermatology Section of Dermatology, Department of Surgery [facility] Pager [phone] Patient seen and evaluated with staff Weatherization Administrator: Halima Cordero MD Section of Dermatology [facility] Level of Resident Supervision: Direct [...] 2.5x80 5. Completion RLE angiogram 6. L PECAN CLEANER angiogram 7. Mynx closure Active Non-Hospital Problems [...] home with home health ([facility] PT&OT) Pager: [phone] YASIR TELLO OT 08/12/2017 Occupational Therapy Rehabilitation [...] maintaining WBing status. Plan of Care - iNcholas Mora, PT - 08/12/2017 3:17 PM EST [...] 2.5x80 5. Completion RLE angiogram 6. L PECAN CLEANER angiogram 7. Mynx closure Past Medical History: [...] with 24/7 assistance and maximal services) Pager: [phone] NICHOLAS MORA, PT 08/12/2017 Physical Therapy Rehabilitation [...] sit/sit to supine -- Bed Mobility Goal, Vernon Level independent -- Bed Mobility Goal, Outcome Achieved -- goal ongoing Goal: Gait Training Goal Stand Alone Therapy Goal Outcome: Ongoing (Interventions Implemented as Appropriate) 08/11/17 1310 08/12/17 1510 Gait Training Goal Gait Training Goal, Date Established 08/11/17 -- Gait Training Goal, Time to Achieve 5 - 7 days -- Gait Training Goal, Vernon Level conditional independence -- Gait Training Goal, [...] days -- Transfer Training Goal, Activity Type pzj-rw-qzndj/ngtwp-rh-vjo -- Transfer Train Goal, [place] Level conditional independence -- Transfer Training Goal, [...] MD - 08/11/2017 2:52 PM EST [facility] Operative Note Patient Name: Gregory Hoang : [id number] MR#: [id number] Case Date: 08/11/2017 Surgeon: Surgeon(s) and Role: [...] 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 Completion RLE angiogram 6. L PECAN CLEANER angiogram 7. Mynx closure He is very [...] Anticipated Discharge Disposition: inpatient rehabilitation facility Pager: [phone] LAWRENCE GONZALEZ, PT 08/11/2017 Physical Therapy Rehabilitation [...] to sit/sit to supine Bed Mobility Goal, [place] Level independent Goal: Gait Training Goal Stand Alone Therapy Goal Outcome: Ongoing (Interventions Implemented as Appropriate) 08/11/17 1310 Gait Training Goal Gait Training Goal, Date Established 08/11/17 Gait Training Goal, Time to Achieve 5 - 7 days Gait Training Goal, Vernon Level conditional independence Gait Training Goal, Assist [...] 7 days Transfer Training Goal, Activity Type ssj-ac-xdqiw/djtsl-ak-tof Transfer Train Goal, Vernon Level conditional independence Plan of [facility] [...] call cabello within reach, Hourly rounding by RN/REGIONAL ENGINEER. Bed alarm / Chair alarm. ? Patient-specific [...] Hospitalizations Within the Past 30 Days: [facility] 07/20/2017 Anticipated Length Of Stay (If known): Expected Length of Hospitalization: 5-7 days2-3 days Current Decision-Making Capacity: Alert and oriented x 4 Advance Care Planning: on file Kisha Hoang [facility] [phone] Current Coping/Education/Information Needs: pt and spouse state [...] Health/Prescription Coverage: Primary Insurance: MEDICARE Secondary Insurance: [employer] REPLACED BY [facility] Prescription Coverage: See above Preferred Pharmacy: [facility] Other: N/A Primary Care Provider: Lovely Vicente MD [phone] Patient/Caregiver Goals of Treatment: Patient plans to return home when medically ready Potential Needs for Transition of Care: Rehab/SNF: N/A Home Health: [facility]. DME: pt has a cane and [...] of care planning. Kaitlin Saha RN Pager: [phone] Plan of Care - Melba Jaramillo RN [...] Overview Goal: Plan of Care Review 08/08/17 5234 Coping/Psychosocial Plan Of Care Reviewed With patient [...] call cabello within reach, Hourly rounding by RN/REGIONAL ENGINEER. Bed alarm / Chair alarm. Patient-specific fall [...] at bedside and MD TEAM Carrying pager [phone] contacted (via Radio page) and notified of [...] Nobles MD [facility] CARDIOLOGY [place], [place] [address] (Wo rk) 05/28/2022 Appointment Cardiology Zulma Dolan MD [facility] [place], [place] [address] (Wo rk) 05/28/2022 Laboratory Appointment Lab 05/28/2022 Office Visit Cardiology Zulma Dolan MD [facility] [place] [address] Liz Poole PA [facility] [place] [address] 06/10/2022 Office Visit Dermatology Laura Scherer MD [facility] DR TEJA [facility] OLOGY [place], [place] [address] (Wo rk) documented as [...] TYPE AND SCREEN Routine 08/09/2017 1:10 ([facility]/CGP/SHANDA) AM EST BASIC METABOLIC PANEL Routine 08/09/2017 [...] POC Glucose 160 65 - 199 [facility] mg/dL [facility] LABORATORY Comment: Supplemental ranges: <140 mg/dL before meals <180 mg/dL all other times of the day Specimen Anatomical Collection Method Collection Time Receive d Time (Source) Location / / Volume Laterality Blood specimen 08/16/2017 7:28 AM 018 7:28 (specimen) EST AM EST Yonathan Smith MD POINT OF CARE TEST ORDERABLE S Performing Organization Address City/State/[place] [address] (ABNORMAL) Differential, Automated (08/16/2017 5:08 AM EST) [facility] Method Time Signature Neutrophils % 73.9 % [facility] LABORATORY Neutr Abs (ANC) 5.37 1.70 - [facility] 6.10 [facility] x10(3)/[facility] LABORATORY Lymphocytes % 10.1 % [facility] LABORATORY Lymphocytes Abs 0.7 (L) 0.9 - 3.2 [facility] x10(3)/[facility] LABORATORY Monocytes % 10.1 % [facility] LABORATORY Monocyte Abs 0.7 0.3 - 0.9 [facility] x10(3)/[facility] LABORATORY Eosinophils % 5.1 % [facility] LABORATORY Eosinophils Abs 0.4 0.0 - 0.4 [facility] x10(3)/[facility] LABORATORY Basophils % 0.4 % [facility] LABORATORY Basophils Abs 0.0 0.0 - 0.1 [facility] x10(3)/[facility] LABORATORY Immature Gran % 0.40 % [facility] [...] Melisa Gran Abs 0.03 0.00 - 0.04 x10(3)/[facility] MAR Y [facility] LABORATORY Specimen Anatomical Collection Method Collection Time Receive d Time (Source) Location / / Volume Laterality Blood specimen 08/16/2017 5:08 AM 018 5:20 (specimen) EST AM EST Resulting Agency Comment Spec In Lab Yonathan Smith MD HEMATOLOGY ORDERABLES Performing Organization Address City/State/[place] [address] (ABNORMAL) Hemogram (08/16/2017 5:08 AM EST) Analysis Performed At Patho logist Time Signature WBC 7.3 4.0 - 9.5 [facility] x[facility] LABORATORY RBC 3.36 (L) 4.58 - [place] 5.54 [facility] x10(6)/[facility] LABORATORY Hemoglobin 9.7 (L) 13.7 - [place] 16.5 gm/dL [facility] LABORATORY Hematocrit 30.3 (L) 40.5 - [facility] 48.5 % [facility] LABORATORY MCV 90.2 82.9 - [facility] 93.1 [facility] LABORATORY MCH 28.9 27.5 - [place] 32.[address] [facility] LABORATORY MCHC 32.0 32.0 - [place] 35.7 gm/dL [facility] LABORATORY Platelets 282 145 - 357 [facility] LABORATORY RDWSD 53.9 (H) 36.0 - [facility] 45.0 [facility] LABORATORY RDWCV 16.5 (H) 11.4 - [facility] SU 13.8 % [facility] LABORATORY MPV 9.0 7.6 - 12.9 [facility] LABORATORY nRBC % Auto 0.0 % [facility] LABORATORY nRBC Abs Auto 0.000 0.000 - [place] 0.000 [facility] x10(3)/[facility] LABORATORY Specimen Anatomical Collection Method Collection Time Receive d Time (Source) Location / / Volume Laterality Blood specimen 08/16/2017 5:08 AM 018 5:20 (specimen) EST AM EST Resulting Agency Comment Spec In Lab Yonathan Smith MD HEMATOLOGY ORDERABLES Performing Organization Address City/State/[place] [address] (ABNORMAL) Basic Metabolic Panel (non-fasting) (08/16/2017 5:08 AM EST) athologist Signature Glucose Lvl 141 65 - 199 [facility] mg/dL [facility] LABORATORY Comment: Diabetes: >=200 mg/dL [...] or in patients with acute kidney failure. [email or web address].ActionRun/DHnkdep [email or web address])/DHMCnkf Specimen Anatomical Collection Method Collection Time Receive d Time (Source) Location / / Volume Laterality Blood specimen 08/16/2017 5:08 AM 018 5:20 (specimen) EST AM EST Resulting Agency Comment Spec In Lab Yonathan Smith MD CHEMISTRY ORDERABLES Performing Organization Address City/State/[place] [address] (ABNORMAL) Prothrombin Time (08/16/2017 [...] City/[facility]/ZIP Code Phon e Number [address] POCT Glucose (08/16/2017 4:09 AM EST) athologist Signature POC Glucose 147 65 - 199 [facility]/dL [facility] LABORATORY Comment: Supplemental ranges: <140 mg/dL before meals <180 mg/dL all other times of the day Specimen Anatomical Collection Method Collection Time Receive d Time (Source) Location / / Volume Laterality Blood specimen 08/16/2017 4:09 AM 018 4:09 (specimen) EST AM EST Yonathan Smith MD POINT OF CARE TEST ORDERABLE S Performing Organization Address City/State/ZIP Code Phon e Number [address] POCT Glucose (08/15/2017 11:56 PM EST) athologist Signature POC Glucose 176 65 - 199 [facility] mg/dL [facility] LABORATORY Comment: Supplemental ranges: <140 mg/dL before meals <180 mg/dL all other times of the day Specimen Anatomical Collection Method Collection Time Receive d Time (Source) Location / / Volume Laterality Blood specimen 08/15/2017 11:56 8 (specimen) PM EST 11:56 PM EST Yonathan Smith MD POINT OF CARE TEST ORDERABLE S Performing Organization Address City/State/[place] [address] POCT Glucose (08/15/2017 8:05 PM EST) athologist Signature POC Glucose 136 65 - 199 [place] mg/dL [facility] LABORATORY Comment: Supplemental ranges: <140 mg/dL before meals <180 mg/dL all other times of the day Specimen Anatomical Collection Method Collection Time Receive d Time (Source) Location / / Volume Laterality Blood specimen 08/15/2017 8:05 PM 018 8:05 (specimen) EST PM EST Yonathan Smith MD POINT OF CARE TEST ORDERABLE S Performing Organization Address City/[facility]/[place] [address] (ABNORMAL) POCT Glucose (08/15/2017 4:50 PM EST) athologist Signature POC Glucose 232 (H) 65 - 199 [facility] SU mg/dL [facility] LABORATORY Comment: Supplemental ranges: <140 mg/dL before meals <180 mg/dL all other times of the day Specimen Anatomical Collection Method Collection Time Receive d Time (Source) Location / / Volume Laterality Blood specimen 08/15/2017 4:50 PM 018 4:50 (specimen) EST PM EST Ynoathan Smith MD POINT OF CARE TEST ORDERABLE S Performing Organization Address City/State/[place] [address] POCT Glucose (08/15/2017 12:04 PM EST) athologist Signature POC Glucose 135 65 - 199 [place] mg/dL [facility] LABORATORY Comment: Supplemental ranges: <140 mg/dL before meals <180 mg/dL all other times of the day Specimen Anatomical Collection Method Collection Time Receive d Time (Source) Location / / Volume Laterality Blood specimen 08/15/2017 12:04 8 (specimen) PM EST 12:04 PM EST Yonathan Smith MD POINT OF CARE TEST ORDERABLE S Performing Organization Address City/State/ZIP Code Phon e Number [place] [id number] [facility] [address] POCT Glucose (08/15/2017 7:36 AM EST) P athologist Signature POC Glucose 124 65 - 199 [facility] LABORATORY Comment: Supplemental ranges: <140 mg/dL before meals <180 mg/dL all other times of the day Specimen Anatomical Collection Method Collection Time Receive d Time (Source) Location / / Volume Laterality Blood specimen 08/15/2017 7:36 AM 018 7:36 (specimen) EST AM EST Yonathan Smith MD POINT OF CARE TEST ORDERABLE S Performing Organization Address City/State/ZIP Code Phon e Number [address] (ABNORMAL) Differential, Automated (08/15/2017 6:22 AM EST) Patholo gist Method Time Signature Neutrophils % 76.1 % [facility] LABORATORY Neutr Abs (ANC) 6.62 (H) 1.70 - [facility] 6.10 [facility] x10(3)/[facility] L LABORATORY Lymphocytes % 9.3 % [facility] LABORATORY Lymphocytes Abs 0.8 (L) 0.9 - 3.2 [facility] x10(3)/[facility] LABORATORY Monocytes % 9.4 % [facility] LABORATORY Monocyte Abs 0.8 0.3 - 0.9 [facility] x10(3)/[facility] LABORATORY Eosinophils % 4.0 % [facility] LABORATORY Eosinophils Abs 0.4 0.0 - 0.4 [facility] x10(3)/[facility] LABORATORY Basophils % 0.6 % [facility] LABORATORY Basophils Abs 0.0 0.0 - 0.1 [facility] x10(3)/[facility] LABORATORY Immature Gran % 0.60 % [facility] [...] 0.05 (H) 0.00 - 0.04 x10(3)/[facility] LABORATORY Specimen Anatomical Collection Method Collection Time Receive d Time (Source) Location / / Volume Laterality Blood specimen 08/15/2017 6:22 AM 018 6:33 (specimen) EST AM EST Resulting Agency Comment Spec In Lab Yonathan Smith MD HEMATOLOGY ORDERABLES Performing Organization Address City/State/[place] [address] (ABNORMAL) Hemogram (08/15/2017 6:22 AM EST) Analysis Performed At Patho logist Time Signature WBC 8.7 4.0 - 9.5 [facility] x10(3)/[facility] LABORATORY RBC 3.21 (L) 4.58 - [facility] SU 5.54 [facility] x10(6)/[facility] LABORATORY Hemoglobin 9.1 (L) 13.7 - [facility] 16.5 gm/dL [facility] LABORATORY Hematocrit 29.0 (L) 40.5 - [facility] 48.5 % [facility] LABORATORY MCV 90.3 82.9 - [facility] 93.1 [facility] LABORATORY MCH 28.3 27.5 - [facility] SU 32.[address] [facility] LABORATORY MCHC 31.4 (L) 32.0 - [facility] 35.7 gm/dL [facility] LABORATORY Platelets 254 145 - 357 [facility] x10(3)/[facility] LABORATORY RDWSD 53.9 (H) 36.0 - [facility] SU 45.0 [facility] LABORATORY RDWCV 16.3 (H) 11.4 - [facility] SU 13.8 % [facility] LABORATORY MPV 8.8 7.6 - 12.9 [facility] LABORATORY nRBC % Auto 0.0 % [facility] LABORATORY nRBC Abs Auto 0.000 0.000 - [facility] SU 0.000 [facility] x10(3)/[facility] LABORATORY Specimen Anatomical Collection Method Collection Time Receive d Time (Source) Location / / Volume Laterality Blood specimen 08/15/2017 6:22 AM 018 6:33 (specimen) EST AM EST Resulting Agency Comment Spec In Lab Yonathan Smith MD HEMATOLOGY ORDERABLES Performing Organization Address City/State/[place] [address] (ABNORMAL) Basic Metabolic Panel (non-fasting) (08/15/2017 6:22 AM EST) athologist Signature Glucose Lvl 118 65 - 199 [facility] mg/dL [facility] LABORATORY Comment: Diabetes: >=200 mg/dL [...] or in patients with acute kidney failure. http://[employer])/DHnkdep http://[employer])/DHMCnkf Specimen Anatomical Collection Method Collection Time Receive d Time (Source) Location / / Volume Laterality Blood specimen 08/15/2017 6:22 AM 018 6:33 (specimen) EST AM EST Resulting Agency Comment Spec In Lab Yonathan Smith MD CHEMISTRY ORDERABLES Performing Organization Address City/[facility]/[place] [address] (ABNORMAL) Prothrombin Time (08/15/2017 [...] City/[facility]/[place] [address] POCT Glucose (08/15/2017 4:33 AM EST) athologist Signature POC Glucose 164 65 - 199 [facility] mg/dL [facility] LABORATORY Comment: Supplemental ranges: <140 mg/dL before meals <180 mg/dL all other times of the day Specimen Anatomical Collection Method Collection Time Receive d Time (Source) Location / / Volume Laterality Blood specimen 08/15/2017 4:33 AM 018 4:33 (specimen) EST AM EST Yonathan Smith MD POINT OF CARE TEST ORDERABLE S Performing Organization Address City/[facility]/[place] [address] POCT Glucose (08/15/2017 12:12 AM EST) athologist Signature POC Glucose 89 65 - 199 [place] mg/dL [facility] LABORATORY Comment: Supplemental ranges: <140 mg/dL before meals <180 mg/dL all other times of the day Specimen Anatomical Collection Method Collection Time Receive d Time (Source) Location / / Volume Laterality Blood specimen 08/15/2017 12:12 8 (specimen) AM EST 12:12 AM EST Yonathan Smith MD POINT OF CARE TEST ORDERABLE S Performing Organization Address City/State/[place] [address] (ABNORMAL) POCT Glucose (08/14/2017 8:07 PM EST) athologist Signature POC Glucose 204 (H) 65 - 199 [place] [facility] mg/dL [facility] LABORATORY Comment: Supplemental ranges: <140 mg/dL before meals <180 mg/dL all other times of the day Specimen Anatomical Collection Method Collection Time Receive d Time (Source) Location / / Volume Laterality Blood specimen 08/14/2017 8:07 PM 018 8:07 (specimen) EST PM EST Yonathan Smith MD POINT OF CARE TEST ORDERABLE S Performing Organization Address City/State/[place] [address] POCT Glucose (08/14/2017 5:11 PM EST) athologist Signature POC Glucose 174 65 - 199 [place] mg/dL [facility] LABORATORY Comment: Supplemental ranges: <140 mg/dL before meals <180 mg/dL all other times of the day Specimen Anatomical Collection Method Collection Time Receive d Time (Source) Location / / Volume Laterality Blood specimen 08/14/2017 5:11 PM 018 5:11 (specimen) EST PM EST Yonathan Smith MD POINT OF CARE TEST ORDERABLE S Performing Organization Address City/State/[place] [address] POCT Glucose (08/14/2017 12:10 PM EST) athologist Signature POC Glucose 141 65 - 199 [facility] LABORATORY Comment: Supplemental ranges: <140 mg/dL before meals <180 mg/dL all other times of the day Specimen Anatomical Collection Method Collection Time Receive d Time (Source) Location / / Volume Laterality Blood specimen 08/14/2017 12:10 8 (specimen) PM EST 12:10 PM EST Yonathan Smith MD POINT OF CARE TEST ORDERABLE S Performing Organization Address City/State/ZIP Code Phon e Number [address] POCT Glucose (08/14/2017 8:07 AM EST) athologist [facility] POC Glucose 158 65 - 199 [facility] LABORATORY Comment: Supplemental ranges: <140 mg/dL before meals <180 mg/dL all other times of the day Specimen Anatomical Collection Method Collection Time Receive d Time (Source) Location / / Volume Laterality Blood specimen 08/14/2017 8:07 AM 018 8:07 (specimen) EST AM EST Yonathan Smith MD POINT OF CARE TEST ORDERABLE S Performing Organization Address City/State/ZIP Code Phon e Number [address] (ABNORMAL) Differential, Automated (08/14/2017 4:52 AM EST) [facility] gist Method Time Signature Neutrophils % 78.6 % [facility] LABORATORY Neutr Abs (ANC) 7.70 (H) 1.70 - [facility] 6.10 [facility] x10(3)/[facility] L LABORATORY Lymphocytes % 7.8 % [facility] LABORATORY Lymphocytes Abs 0.8 (L) 0.9 - 3.2 [facility] x10(3)/[facility] LABORATORY Monocytes % 8.8 % [facility] LABORATORY Monocyte Abs 0.9 0.3 - 0.9 [facility] x10(3)/[facility] LABORATORY Eosinophils % 4.0 % [facility] LABORATORY Eosinophils Abs 0.4 0.0 - 0.4 [facility] x10(3)/[facility] LABORATORY Basophils % 0.5 % [facility] LABORATORY Basophils Abs 0.0 0.0 - 0.1 [facility] x10(3)/[facility] LABORATORY Immature Gran [...] Melisa Gran Abs 0.03 0.00 - 0.04 x10(3)/[facility] MAR Y [facility] LABORATORY Specimen Anatomical Collection Method Collection Time Receive d Time (Source) Location / / Volume Laterality Blood specimen 08/14/2017 4:52 AM 018 5:08 (specimen) EST AM EST Resulting Agency Comment Spec In Lab Yonathan Smith MD HEMATOLOGY ORDERABLES Performing Organization Address City/State/[place] [address] (ABNORMAL) Hemogram (08/14/2017 4:52 AM EST) Analysis Performed At Patho logist Time Signature WBC 9.8 (H) 4.0 - 9.5 [facility] x10(3)/[facility] LABORATORY RBC 3.32 (L) 4.58 - [facility] 5.54 [facility] x10(6)/[facility] LABORATORY Hemoglobin 9.5 (L) 13.7 - [facility] 16[facility]5 gm/dL [facility] LABORATORY Hematocrit 30.3 (L) 40.5 - [facility] 48.5 % [facility] LABORATORY MCV 91.3 82.9 - [facility] 93.[address] [facility] LABORATORY MCH 28.6 27.5 - [facility] 32.[address] [facility] LABORATORY MCHC 31.4 (L) 32.0 - [facility] 35.7 gm/dL [facility] LABORATORY Platelets 263 145 - 357 [facility] x10(3)/[facility] LABORATORY RDWSD 54.8 (H) 36.0 - [facility] SU 45.0 [facility] LABORATORY RDWCV 16.5 (H) 11.4 - [facility] 13.8 % [facility] LABORATORY MPV 9.1 7.6 - 12.9 [facility] LABORATORY nRBC % Auto 0.0 % [facility] LABORATORY nRBC Abs Auto 0.000 0.000 - [facility] 0.000 [facility] x10(3)/[facility] LABORATORY Specimen Anatomical Collection Method Collection Time Receive d Time (Source) Location / / Volume Laterality Blood specimen 08/14/2017 4:52 AM 018 5:08 (specimen) EST AM EST Resulting Agency Comment Spec In Lab Yonathan Smith MD HEMATOLOGY ORDERABLES Performing Organization Address City/State/ZIP Code Phon e Number [address] (ABNORMAL) Prothrombin Time (08/14/2017 [...] Organization Address City/State/[place] [address] (ABNORMAL) Basic Metabolic Panel (non-fasting) (08/14/2017 4:52 AM EST) P athologist Signature Glucose Lvl 135 65 - 199 [facility] mg/dL [facility] LABORATORY Comment: Diabetes: >=200 mg/dL [...] or in patients with acute kidney failure. http://[employer])/DHnkdep http://[employer])/DHMCnkf Specimen Anatomical Collection Method Collection Time Receive d Time (Source) Location / / Volume Laterality Blood specimen 08/14/2017 4:52 AM 018 5:08 (specimen) EST AM EST Resulting Agency Comment Spec In Lab Yonathan Smith MD CHEMISTRY ORDERABLES Performing Organization Address City/State/[place] [address] POCT Glucose (08/14/2017 3:56 AM EST) athologist Signature POC Glucose 135 65 - 199 [facility] mg/dL [facility] LABORATORY Comment: Supplemental ranges: <140 mg/dL before meals <180 mg/dL all other times of the day Specimen Anatomical Collection Method Collection Time Receive d Time (Source) Location / / Volume Laterality Blood specimen 08/14/2017 3:56 AM 018 3:56 (specimen) EST AM EST Yonathan Smith MD POINT OF CARE TEST ORDERABLE S Performing Organization Address City/State/[place] [address] POCT Glucose (08/13/2017 11:13 PM EST) athologist Signature POC Glucose 118 65 - 199 [place] mg/dL [facility] LABORATORY Comment: Supplemental ranges: <140 mg/dL before meals <180 mg/dL all other times of the day Specimen Anatomical Collection Method Collection Time Receive d Time (Source) Location / / Volume Laterality Blood specimen 08/13/2017 11:13 8 (specimen) PM EST 11:13 PM EST Yonathan Smith MD POINT OF CARE TEST ORDERABLE S Performing Organization Address City/State/[place] [address] (ABNORMAL) POCT Glucose (08/13/2017 8:08 PM EST) athologist Signature POC Glucose 204 (H) 65 - 199 [place] [facility] mg/dL [facility] LABORATORY Comment: Supplemental ranges: <140 mg/dL before meals <180 mg/dL all other times of the day Specimen Anatomical Collection Method Collection Time Receive d Time (Source) Location / / Volume Laterality Blood specimen 08/13/2017 8:08 PM 018 8:08 (specimen) EST PM EST Yonathan Smith MD POINT OF CARE TEST ORDERABLE S Performing Organization Address City/State/ZIP Code Phon e Number [address] POCT Glucose (08/13/2017 4:02 PM EST) athologist Signature POC Glucose 145 65 - 199 [facility] SU mg/dL [facility] LABORATORY Comment: Supplemental ranges: <140 mg/dL before meals <180 mg/dL all other times of the day Specimen Anatomical Collection Method Collection Time Receive d Time (Source) Location / / Volume Laterality Blood specimen 08/13/2017 4:02 PM 018 4:02 (specimen) EST PM EST Yonatahn Smith MD POINT OF CARE TEST ORDERABLE S Performing Organization Address City/[facility]/ZIP Code Phon e Number [address] POCT Glucose (08/13/2017 11:31 AM EST) athologist Signature POC Glucose 179 65 - 199 [place] mg/dL [facility] LABORATORY Comment: Supplemental ranges: <140 mg/dL before meals <180 mg/dL all other times of the day Specimen Anatomical Collection Method Collection Time Receive d Time (Source) Location / / Volume Laterality Blood specimen 08/13/2017 11:31 8 (specimen) AM EST 11:31 AM EST Yonathan Smith MD POINT OF CARE TEST ORDERABLE S Performing Organization Address City/[facility]/[place] [address] (ABNORMAL) POCT Glucose (08/13/2017 10:16 AM EST) athologist Signature POC Glucose 211 (H) 65 - 199 [place] [facility] mg/dL [facility] LABORATORY Comment: Supplemental ranges: <140 mg/dL before meals <180 mg/dL all other times of the day Specimen Anatomical Collection Method Collection Time Receive d Time (Source) Location / / Volume Laterality Blood specimen 08/13/2017 10:16 8 (specimen) AM EST 10:16 AM EST Yonathan Smith MD POINT OF CARE TEST ORDERABLE S Performing Organization Address City/State/[place] [address] JULIAN, legs, multiple levels (08/13/2017 7:42 AM EST) Component Value Ref Test [facility] Method Time Signature VB Text Department: Vascular Surgery Lab VASCUBASE Report Patient: [id number] (GREGORY HOANG) CPT: 86214 ICD10: I99.8 Referring Physician: YONATHAN SMITH ?? Indications: s/p R 1,2,3 toe amps with red left foot, need n ew baseline Diabetes mellitus: yes ICD10 Diagnosis Code: I99.8 Findings: Right ?Pressure (mm Hg) ?? JULIAN ??Waveform ?TBI ?? Brachial Artery ?138 ? Dorsalis Pedis (Ankle) Arter y ?132 ? 0.94 ??Harnett- Biphasic ? Posterior Tibial (Ankle) Art anila ??154 ? 1.10 ??Harnett-Biphasic ? Fourth Toe ? 67 ? 0.48 [...] POC Glucose 156 65 - 199 [facility] mg/dL [facility] LABORATORY Comment: Supplemental ranges: <140 mg/dL before meals <180 mg/dL all other times of the day Specimen Anatomical Collection Method Collection Time Receive d Time (Source) Location / / Volume Laterality Blood specimen 08/13/2017 7:33 AM 018 7:33 (specimen) EST AM EST Yonathan Smith MD POINT OF CARE TEST ORDERABLE S Performing Organization Address City/State/ZIP Code Phon e Number [place] [id number] (ABNORMAL) Differential, Automated (08/13/2017 5:33 AM EST) [facility] Method Time Signature Neutrophils % 77.8 % [facility] LABORATORY Neutr Abs (ANC) 7.83 (H) 1.70 - [facility] 6.10 [facility] x10(3)/[facility] L LABORATORY Lymphocytes % 8.4 % [facility] LABORATORY Lymphocytes Abs 0.8 (L) 0.9 - 3.2 [facility] x10(3)/[facility] LABORATORY Monocytes % 8.3 % [facility] LABORATORY Monocyte Abs 0.8 0.3 - 0.9 [facility] x10(3)/[facility] LABORATORY Eosinophils % 4.6 % [facility] LABORATORY Eosinophils Abs 0.5 (H) 0.0 - 0.4 [facility] x10(3)/[facility] LABORATORY Basophils % 0.5 % [facility] LABORATORY Basophils Abs 0.0 0.0 - 0.1 [facility] x10(3)/[facility] LABORATORY Immature Gran % 0.40 % [facility] [...] Melisa Gran Abs 0.04 0.00 - 0.04 x10(3)/[facility] MAR Y [facility] LABORATORY Specimen Anatomical Collection Method Collection Time Receive d Time (Source) Location / / Volume Laterality Blood specimen 08/13/2017 5:33 AM 018 6:04 (specimen) EST AM EST Resulting Agency Comment Spec In Lab Yonathan Smith MD HEMATOLOGY ORDERABLES Performing Organization Address City/State/[place] [address] (ABNORMAL) Hemogram (08/13/2017 5:33 AM EST) Analysis Performed At Patho logist Time Signature WBC 10.1 (H) 4.0 - 9.5 [facility] LABORATORY RBC 3.21 (L) 4.58 - [place] [facility] 5.54 [facility] x10(6)/[facility] LABORATORY Hemoglobin 9.2 (L) 13.7 - [place] [facility] 16.5 gm/dL [facility] LABORATORY Hematocrit 29.6 (L) 40.5 - [facility] 48.5 % [facility] LABORATORY MCV 92.2 82.9 - [facility] 93.1 [facility] LABORATORY MCH 28.7 27.5 - [place] [facility] 32.[address] [facility] LABORATORY MCHC 31.1 (L) 32.0 - [place] [facility] 35.7 gm/dL [facility] LABORATORY Platelets 263 145 - 357 [facility] x10(3)/[facility] LABORATORY RDWSD 54.8 (H) 36.0 - [place] [facility] 45.0 [facility] LABORATORY RDWCV 16.4 (H) 11.4 - [place] [facility] 13.8 % [facility] LABORATORY MPV 9.2 7.6 - 12.9 [place] [facility] LABORATORY nRBC % Auto 0.0 % [facility] LABORATORY nRBC Abs Auto 0.000 0.000 - [place] [facility] 0.000 [facility] x10(3)/[facility] LABORATORY Specimen Anatomical Collection Method Collection Time Receive d Time (Source) Location / / Volume Laterality Blood specimen 08/13/2017 5:33 AM 018 6:04 (specimen) EST AM EST Resulting Agency Comment Spec In Lab Yonathan Smith MD HEMATOLOGY ORDERABLES Performing Organization Address City/State/[place] [address] (ABNORMAL) Prothrombin Time (08/13/2017 [...] Address City/State/[place] [address] (ABNORMAL) Basic Metabolic Panel (non-fasting) (08/13/2017 5:33 AM EST) athologist Signature Glucose Lvl 126 65 - 199 [facility] mg/dL [facility] LABORATORY Comment: Diabetes: >=200 mg/dL [...] or in patients with acute kidney failure. http://[employer])/DHnkdep http://[employer])/DHMCnkf Specimen Anatomical Collection Method Collection Time Receive d Time (Source) Location / / Volume Laterality Blood specimen 08/13/2017 5:33 AM 018 6:04 (specimen) EST AM EST Resulting Agency Comment Spec In Lab Yonathan Smith MD CHEMISTRY ORDERABLES Performing Organization Address [facility] Phon e Number [address] POCT Glucose (08/13/2017 4:29 AM EST) athologist Signature POC Glucose 111 65 - 199 [facility] LABORATORY Comment: Supplemental ranges: <140 mg/dL before meals <180 mg/dL all other times of the day Specimen Anatomical Collection Method Collection Time Receive d Time (Source) Location / / Volume Laterality Blood specimen 08/13/2017 4:29 AM 018 4:29 (specimen) EST AM EST Yonathan Smith MD POINT OF CARE TEST ORDERABLE S Performing Organization Address City/[facility] Phon e Number [address] POCT Glucose (08/12/2017 11:28 PM EST) athologist Signature POC Glucose 164 65 - 199 [facility] [facility] Comment: Supplemental ranges: <140 mg/dL before meals <180 mg/dL all other times of the day Specimen Anatomical Collection Method Collection Time Receive d Time (Source) Location / / Volume Laterality Blood specimen 08/12/2017 11:28 8 (specimen) PM EST 11:28 PM EST Yonathan Smith MD POINT OF CARE TEST ORDERABLE S Performing Organization Address City/State/[place] [address] (ABNORMAL) POCT Glucose (08/12/2017 7:40 PM EST) athologist Signature POC Glucose 209 (H) 65 - 199 [place] mg/dL [facility] Comment: Supplemental ranges: <140 mg/dL before meals <180 mg/dL all other times of the day Specimen Anatomical Collection Method Collection Time Receive d Time (Source) Location / / Volume Laterality Blood specimen 08/12/2017 7:40 PM 018 7:40 (specimen) EST PM EST Yonathan Smith MD POINT OF CARE TEST ORDERABLE S Performing Organization Address City/State/[place] [address] POCT Glucose (08/12/2017 4:24 PM EST) athologist Signature POC Glucose 161 65 - 199 [place] mg/dL [facility] Comment: Supplemental ranges: <140 mg/dL before meals <180 mg/dL all other times of the day Specimen Anatomical Collection Method Collection Time Receive d Time (Source) Location / / Volume Laterality Blood specimen 08/12/2017 4:24 PM 018 4:24 (specimen) EST PM EST Yonathan Smith MD POINT OF CARE TEST ORDERABLE S Performing Organization Address City/State/[place] [address] POCT Glucose (08/12/2017 12:00 PM EST) athologist Signature POC Glucose 167 65 - 199 [place] mg/dL [facility] Comment: Supplemental ranges: <140 mg/dL before meals <180 mg/dL all other times of the day Specimen Anatomical Collection Method Collection Time Receive d Time (Source) Location / / Volume Laterality Blood specimen 08/12/2017 12:00 8 (specimen) PM EST 12:00 PM EST Yonathan Smith MD POINT OF CARE TEST ORDERABLE S Performing Organization Address City/State/[place] [address] [facility] [address] POCT Glucose (08/12/2017 7:25 AM EST) P athologist Signature POC Glucose 152 65 - 199 [facility] mg/dL [facility] Comment: Supplemental ranges: <140 mg/dL before meals <180 mg/dL all other times of the day Specimen Anatomical Collection Method Collection Time Receive d Time (Source) Location / / Volume Laterality Blood specimen 08/12/2017 7:25 AM 018 7:25 (specimen) EST AM EST Yonathan Smith MD POINT OF CARE TEST ORDERABLE S Performing Organization Address City/State/ZIP Code Phon e Number [address] (ABNORMAL) Differential, Automated (08/12/2017 6:29 AM EST) Patholo gist Method Time Signature Neutrophils % 78.7 % [facility] Neutr Abs (ANC) 7.94 (H) 1.70 - [facility] 6.10 [facility] x10(3)/[facility] LABORATORY Lymphocytes % 8.8 % [facility] Lymphocytes Abs 0.9 0.9 - 3.2 [facility] x10(3)/[facility] LABORATORY Monocytes % 7.8 % [facility] Monocyte Abs 0.8 0.3 - 0.9 [facility] x10(3)/[facility] LABORATORY Eosinophils % 3.9 % [facility] Eosinophils Abs 0.4 0.0 - 0.4 [facility] x10(3)/[facility] LABORATORY Basophils % 0.3 % [facility] Basophils Abs 0.0 0.0 - 0.1 [facility] x10(3)/[facility] LABORATORY Immature Gran % 0.50 % [facility] [...] 0.05 (H) 0.00 - 0.04 x10(3)/[facility] LABORATORY Specimen Anatomical Collection Method Collection Time Receive d Time (Source) Location / / Volume Laterality Blood specimen 08/12/2017 6:29 AM 018 6:38 (specimen) EST AM EST Resulting Agency Comment Spec In Lab Yonathan Smith MD HEMATOLOGY ORDERABLES Performing Organization Address City/State/[place] [address] (ABNORMAL) Hemogram (08/12/2017 6:29 AM EST) Analysis Performed At Patho logist Time Signature WBC 10.1 (H) 4.0 - 9.5 [facility] x10(3)/[facility] LABORATORY RBC 3.02 (L) 4.58 - [facility] SU 5.54 [facility] x10(6)/[facility] LABORATORY Hemoglobin 8.7 (L) 13.7 - [facility]dL [facility]ORY Hematocrit 28.1 (L) 40.5 - [facility] 48.[facility] % [facility] MCV 93.0 82.9 - [facility]1 [facility] LABORATORY MCH 28.8 27.5 - [facility] 32.[address] [facility]ORY MCHC 31.0 (L) 32.0 - [facility] 35.7 gm/dL [facility]ORY Platelets 223 145 - 357 [facility] x10(3)/[facility] LABORATORY RDWSD 56.1 (H) 36.0 - [facility] SU 45.0 [facility] LABORATORY RDWCV 16.4 (H) 11.4 - [facility] [employer] 13.8 % [facility] LABORATORY MPV 9.0 7.6 - 12.9 [facility] LABORATORY nRBC % Auto 0.0 % [facility] nRBC Abs Auto 0.000 0.000 - [facility] SU 0.000 [facility] x10(3)/[facility] LABORATORY Specimen Anatomical Collection Method Collection Time Receive d Time (Source) Location / / Volume Laterality Blood specimen 08/12/2017 6:29 AM 018 6:38 (specimen) EST AM EST Resulting Agency Comment Spec In Lab Yonathan Smith MD HEMATOLOGY ORDERABLES Performing Organization Address [facility] [place] [address] (ABNORMAL) Prothrombin Time (08/12/2017 [...] Smith MD HEMATOLOGY ORDERABLES Performing Organization Address [facility] [place] [address] (ABNORMAL) Basic Metabolic Panel (non-fasting) (08/12/2017 6:29 AM EST) athologist Signature Glucose Lvl 151 65 - 199 [facility] mg/dL [facility] Comment: Diabetes: >=200 mg/dL [...] or in patients with acute kidney failure. http://[employer])/DHnkdep http://[employer])/DHMCnkf Specimen Anatomical Collection Method Collection Time Receive d Time (Source) Location / / Volume Laterality Blood specimen 08/12/2017 6:29 AM 018 6:38 (specimen) EST AM EST Resulting Agency Comment Spec In Lab Yonathan Smith MD CHEMISTRY ORDERABLES Performing Organization Address City/[facility]/[place] [address] POCT Glucose (08/12/2017 4:08 AM EST) P athologist Signature POC Glucose 181 65 - 199 [facility] mg/dL [facility] Comment: Supplemental ranges: <140 mg/dL before meals <180 mg/dL all other times of the day Specimen Anatomical Collection Method Collection Time Receive d Time (Source) Location / / Volume Laterality Blood specimen 08/12/2017 4:08 AM 018 4:08 (specimen) EST AM EST Yonathan Smith MD POINT OF CARE TEST ORDERABLE S Performing Organization Address City/[facility]/[place] [address] (ABNORMAL) POCT Glucose (08/12/2017 12:17 AM EST) athologist Signature POC Glucose 221 (H) 65 - 199 [place] mg/dL [facility] Comment: Supplemental ranges: <140 mg/dL before meals <180 mg/dL all other times of the day Specimen Anatomical Collection Method Collection Time Receive d Time (Source) Location / / Volume Laterality Blood specimen 08/12/2017 12:17 8 (specimen) AM EST 12:17 AM EST Yonathan Smith MD POINT OF CARE TEST ORDERABLE S Performing Organization Address City/State/[place] [address] (ABNORMAL) POCT Glucose (08/11/2017 8:52 PM EST) athologist Signature POC Glucose 221 (H) 65 - 199 [facility] Comment: Supplemental ranges: <140 mg/dL before meals <180 mg/dL all other times of the day Specimen Anatomical Collection Method Collection Time Receive d Time (Source) Location / / Volume Laterality Blood specimen 08/11/2017 8:52 PM 018 8:52 (specimen) EST PM EST Yonathan Smith MD POINT OF CARE TEST ORDERABLE S Performing Organization Address City/State/[place] [address] POCT Glucose (08/11/2017 5:59 PM EST) athologist Signature POC Glucose 169 65 - 199 [place] mg/dL [facility] Comment: Supplemental ranges: <140 mg/dL before meals <180 mg/dL all other times of the day Specimen Anatomical Collection Method Collection Time Receive d Time (Source) Location / / Volume Laterality Blood specimen 08/11/2017 5:59 PM 018 5:59 (specimen) EST PM EST Yonathan Smith MD POINT OF CARE TEST ORDERABLE S Performing Organization Address City/State/[place] [address] (ABNORMAL) POCT Glucose (08/11/2017 4:08 PM EST) P athologist Signature POC Glucose 240 (H) 65 - 199 [place] mg/dL [facility] Comment: Supplemental ranges: <140 mg/dL before meals <180 mg/dL all other times of the day Specimen Anatomical Collection Method Collection Time Receive d Time (Source) Location / / Volume Laterality Blood specimen 08/11/2017 4:08 PM 018 4:08 (specimen) EST PM EST Yonathan Smith MD POINT OF CARE TEST ORDERABLE S Performing Organization Address City/State/[place] [address] POCT Glucose (08/11/2017 12:04 PM EST) athologist Signature POC Glucose 182 65 - 199 [facility] Comment: Supplemental ranges: <140 mg/dL before meals <180 mg/dL all other times of the day Specimen Anatomical Collection Method Collection Time Receive d Time (Source) Location / / Volume Laterality Blood specimen 08/11/2017 12:04 8 (specimen) PM EST 12:04 PM EST Yonathan Smith MD POINT OF CARE TEST ORDERABLE S Performing Organization Address City/State/ZIP Code Phon e Number [address] POCT Glucose (08/11/2017 7:31 AM EST) athologist Signature POC Glucose 156 65 - 199 [facility] Comment: Supplemental ranges: <140 mg/dL before meals <180 mg/dL all other times of the day Specimen Anatomical Collection Method Collection Time Receive d Time (Source) Location / / Volume Laterality Blood specimen 08/11/2017 7:31 AM 018 7:31 (specimen) EST AM EST Yonathan Smith MD POINT OF CARE TEST ORDERABLE S Performing Organization Address City/State/[place] [address] (ABNORMAL) Differential, Automated (08/11/2017 6:16 AM EST) [facility] gist Method Time Signature Neutrophils % 83.7 % [facility] Neutr Abs (ANC) 10.76 (H) 1.70 - [facility] 6.10 [facility] x10(3)/[facility] LABORATORY Lymphocytes % 6.0 % [facility] Lymphocytes Abs 0.8 (L) 0.9 - 3.2 [facility] x10(3)/[facility] LABORATORY Monocytes % 7.5 % [facility] Monocyte Abs 1.0 (H) 0.3 - 0.9 [facility] x10(3)/[facility] LABORATORY Eosinophils % 2.0 % [facility] Eosinophils Abs 0.3 0.0 - 0.4 [facility] x10(3)/[facility] LABORATORY Basophils % 0.3 % [facility] Basophils Abs 0.0 0.0 - 0.1 [place] 833550(3)/[facility] LABORATORY Immature Gran % 0.50 % [facility] [...] Gran Abs 0.06 (H) 0.00 - 0.04 x10(3)/[facility] LABORATORY Specimen Anatomical Collection Method Collection Time Receive d Time (Source) Location / / Volume Laterality Blood specimen 08/11/2017 6:16 AM 018 6:24 (specimen) EST AM EST Resulting Agency Comment Spec In Lab Yonathan Smith MD HEMATOLOGY ORDERABLES Performing Organization Address City/State/[place] [address] (ABNORMAL) Hemogram (08/11/2017 6:16 AM EST) Analysis Performed At [facility] Time Signature WBC 12.9 (H) 4.0 - 9.5 [facility] x10(3)/[facility] LABORATORY RBC 3.28 (L) 4.58 - [place] 5.54 [facility] x10(6)/[facility] LABORATORY Hemoglobin 9.5 (L) 13.7 - [place] 16.5 gm/dL [facility]ORATORY Hematocrit 29.8 (L) 40.5 - [place] 48.5 % [facility]ATORY MCV 90.9 82.9 - [facility] 93.1 [facility] LABORATORY MCH 29.0 27.5 - [place] 32.[address] [facility] LABORATORY MCHC 31.9 (L) 32.0 - [place] [facility] 35.7 gm/dL [facility] LABORATORY Platelets 236 145 - 357 [facility] x10(3)/[facility] LABORATORY RDWSD 53.5 (H) 36.0 - [facility] SU 45.0 [facility] LABORATORY RDWCV 16.3 (H) 11.4 - [facility] SU 13.8 % [facility] LABORATORY MPV 8.8 7.6 - 12.9 [facility] LABORATORY nRBC % Auto 0.0 % [facility]ORY nRBC Abs Auto 0.000 0.000 - [place] 0.000 [facility] x10(3)/[facility] LABORATORY Specimen Anatomical Collection Method Collection Time Receive d Time (Source) Location / / Volume Laterality Blood specimen 08/11/2017 6:16 AM 018 6:24 (specimen) EST AM EST Resulting Agency Comment Spec In Lab Yonathan Smith MD HEMATOLOGY ORDERABLES Performing Organization Address City/State/[place] [address] (ABNORMAL) Prothrombin Time (08/11/2017 [...] Address City/State/[place] [address] Basic Metabolic Panel (non-fasting) (08/11/2017 6:16 AM EST) athologist Signature Glucose Lvl 139 65 - 199 [facility] mg/dL [facility]ATORY Comment: Diabetes: >=200 mg/dL [...] or in patients with acute kidney failure. http://[employer])/DHnkdep http://[employer])/DHMCnkf Specimen Anatomical Collection Method Collection Time Receive d Time (Source) Location / / Volume Laterality Blood specimen 08/11/2017 6:16 AM 018 6:24 (specimen) EST AM EST Resulting Agency Comment Spec In Lab Yonathan Smith MD CHEMISTRY ORDERABLES Performing Organization Address City/State/ZIP Code Phon e Number [address] POCT Glucose (08/11/2017 4:07 AM EST) athologist Signature POC Glucose 162 65 - 199 [place] mg/dL [facility]ORY Comment: Supplemental ranges: <140 mg/dL before meals <180 mg/dL all other times of the day Specimen Anatomical Collection Method Collection Time Receive d Time (Source) Location / / Volume Laterality Blood specimen 08/11/2017 4:07 AM 018 4:07 (specimen) EST AM EST Yonathan Smith MD POINT OF CARE TEST ORDERABLE S Performing Organization Address City/State/ZIP Code Phon e Number [address] POCT Glucose (08/10/2017 11:59 PM EST) athologist Signature POC Glucose 166 65 - 199 [place] mg/dL [facility]ORY Comment: Supplemental ranges: <140 mg/dL before meals <180 mg/dL all other times of the day Specimen Anatomical Collection Method Collection Time Receive d Time (Source) Location / / Volume Laterality Blood specimen 08/10/2017 11:59 8 (specimen) PM EST 11:59 PM EST Yonathan Smith MD POINT OF CARE TEST ORDERABLE S Performing Organization Address City/State/ZIP Code Phon e Number [address] POCT Glucose (08/10/2017 8:12 PM EST) athologist Signature POC Glucose 156 65 - 199 [place] mg/dL [facility]ORY Comment: Supplemental ranges: <140 mg/dL before meals <180 mg/dL all other times of the day Specimen Anatomical Collection Method Collection Time Receive d Time (Source) Location / / Volume Laterality Blood specimen 08/10/2017 8:12 PM 018 8:12 (specimen) EST PM EST Yonathan Smith MD POINT OF CARE TEST ORDERABLE S Performing Organization Address City/State/[place] [address] (ABNORMAL) POCT Glucose (08/10/2017 4:42 PM EST) P athologist Signature POC Glucose 211 (H) 65 - 199 [facility]ORY Comment: Supplemental ranges: <140 mg/dL before meals <180 mg/dL all other times of the day Specimen Anatomical Collection Method Collection Time Receive d Time (Source) Location / / Volume Laterality Blood specimen 08/10/2017 4:42 PM 018 4:42 (specimen) EST PM EST Yonathan Smith MD POINT OF CARE TEST ORDERABLE S Performing Organization Address City/State/[place] [address] (ABNORMAL) Differential, Automated (08/10/2017 2:30 PM EST) Patholo gist Method Time Signature Neutrophils % 87.6 % [facility]ORATORY Neutr Abs (ANC) 9.90 (H) 1.70 - [facility] 6.10 [facility] x10(3)/[facility] L LABORATORY Lymphocytes % 4.3 % [facility]ATORY Lymphocytes Abs 0.5 (L) 0.9 - 3.2 [facility] x10(3)/[facility] LABORATORY Monocytes % 6.0 % [facility]ORATORY Monocyte Abs 0.7 0.3 - 0.9 [facility] x10(3)/[facility] LABORATORY Eosinophils % 1.1 % [facility]OR[facility]ORY Eosinophils Abs 0.1 0.0 - 0.4 [facility] x10(3)/[facility] LABORATORY Basophils % 0.4 % [facility]ORY Basophils Abs 0.0 0.0 - 0.1 [facility] x10(3)/[facility] LABORATORY Immature Gran % 0.60 % [facility] [...] 0.07 (H) 0.00 - 0.04 x10(3)/[facility] LABORATORY Specimen Anatomical Collection Method Collection Time Receive d Time (Source) Location / / Volume Laterality Blood specimen 08/10/2017 2:30 PM 018 2:48 (specimen) EST PM EST Resulting Agency Comment Spec In Lab Yonathan Smith MD HEMATOLOGY ORDERABLES Performing Organization Address City/State/[place] [address] (ABNORMAL) Hemogram (08/10/2017 2:30 PM EST) Analysis Performed At Patho logist Time Signature WBC 11.3 (H) 4.0 - 9.5 [facility] x10(3)/[facility] LABORATORY RBC 3.13 (L) 4.58 - [facility] SU 5.54 [facility] x10(6)/[facility] LABORATORY Hemoglobin 8.9 (L) 13.7 - [facility] gm/dL [facility] LABORATORY Hematocrit 28.4 (L) 40.5 - [facility] SU 48.5 % [facility] LABORATORY MCV 90.7 82.9 - [facility] SU 93.1 [facility] LABORATORY MCH 28.4 27.5 - [place] [facility] 32.[address] [facility] LABORATORY MCHC 31.3 (L) 32.0 - [facility] SU 35.7 gm/dL [facility] LABORATORY Platelets 213 145 - 357 [facility] x10(3)/[facility] LABORATORY RDWSD 53.7 (H) 36.0 - [facility] SU 45.0 [facility] RDWCV 16.4 (H) 11.4 - [facility] SU 13.8 % [facility] LABORATORY MPV 8.9 7.6 - 12.9 [facility] LABORATORY nRBC % Auto 0.0 % [facility] LABORATORY nRBC Abs Auto 0.000 0.000 - [facility] 0.000 [facility] x10(3)/[facility] LABORATORY Specimen Anatomical Collection Method Collection Time Receive d Time (Source) Location / / Volume Laterality Blood specimen 08/10/2017 2:30 PM 018 2:48 (specimen) EST PM EST Resulting Agency Comment Spec In Lab Yonathan Smith MD HEMATOLOGY ORDERABLES Performing Organization Address City/State/ZIP Code Phon e Number [address] (ABNORMAL) POCT Glucose (08/10/2017 1:50 PM EST) P athologist Signature POC Glucose 243 (H) 65 - 199 [facility] mg/dL [facility] LABORATORY Comment: Supplemental ranges: <140 mg/dL before meals <180 mg/dL all other times of the day Specimen Anatomical Collection Method Collection Time Receive d Time (Source) Location / / Volume Laterality Blood specimen 08/10/2017 1:50 PM 018 1:50 (specimen) EST PM EST Yonathan Smith MD POINT OF CARE TEST ORDERABLE S Performing Organization Address City/[facility]/[place] [address] POCT Glucose (08/10/2017 11:21 AM EST) P athologist Signature POC Glucose 156 65 - 199 [facility] LABORATORY Comment: Supplemental ranges: <140 mg/dL before meals <180 mg/dL all other times of the day Specimen Anatomical Collection Method Collection Time Receive d Time (Source) Location / / Volume Laterality Blood specimen 08/10/2017 11:21 8 (specimen) AM EST 11:21 AM EST Yonathan Smith MD POINT OF CARE TEST ORDERABLE S Performing Organization Address City/State/[place] [address] (ABNORMAL) Differential, Automated (08/10/2017 10:28 AM EST) Patholo gist Method Time Signature Neutrophils % 85.3 % [facility] LABORATORY Neutr Abs (ANC) 9.43 (H) 1.70 - [facility] 6.10 [facility] x10(3)/[facility] L LABORATORY Lymphocytes % 5.5 % [facility] LABORATORY Lymphocytes Abs 0.6 (L) 0.9 - 3.2 [facility] x10(3)/[facility] LABORATORY Monocytes % 5.9 % [facility] LABORATORY Monocyte Abs 0.6 0.3 - 0.9 [facility] x10(3)/[facility] LABORATORY Eosinophils % 2.1 % [facility] LABORATORY Eosinophils Abs 0.2 0.0 - 0.4 [facility] x10(3)/[facility] LABORATORY Basophils % 0.4 % [facility] LABORATORY Basophils Abs 0.0 0.0 - 0.1 [facility] x10(3)/[facility] LABORATORY Immature Gran % 0.80 % [facility] [...] 0.09 (H) 0.00 - 0.04 x10(3)/[facility] LABORATORY Specimen Anatomical Collection Method Collection Time Receive d Time (Source) Location / / Volume Laterality Blood specimen 08/10/2017 10:28 8 (specimen) AM EST 10:35 AM EST Resulting Agency Comment Spec In Lab Yonathan Smith MD HEMATOLOGY ORDERABLES Performing Organization Address City/State/[place] [address] (ABNORMAL) Hemogram (08/10/2017 10:28 AM EST) Analysis Performed At Patho logist Time Signature WBC 11.0 (H) 4.0 - 9.5 [facility] x10(3)/[facility] LABORATORY RBC 3.02 (L) 4.58 - [place] 5.54 [facility] x10(6)/[facility] LABORATORY Hemoglobin 8.8 (L) 13.7 - [place] [facility] 16.5 gm/dL [facility] LABORATORY Hematocrit 28.1 (L) 40.5 - [place] 48.5 % [facility] LABORATORY MCV 93.0 82.9 - [facility]1 [facility] [facility] LABORATORY MCH 29.1 27.5 - [place] 32.[address] [facility] LABORATORY MCHC 31.3 (L) 32.0 - [place] 35.7 gm/dL [facility] LABORATORY Platelets 207 145 - 357 [facility] x10(3)/[facility] LABORATORY RDWSD 55.3 (H) 36.0 - [facility] SU 45.0 [facility] LABORATORY RDWCV 16.4 (H) 11.4 - [facility] % [facility] LABORATORY MPV 9.0 7.6 - 12.9 [facility] LABORATORY nRBC % Auto 0.0 % [facility] LABORATORY nRBC Abs Auto 0.000 0.000 - [place] 0.000 [facility] x10(3)/[facility] LABORATORY Specimen Anatomical Collection Method Collection Time Receive d Time (Source) Location / / Volume Laterality Blood specimen 08/10/2017 10:28 8 (specimen) AM EST 10:35 AM EST Resulting Agency Comment Spec In Lab Yonathan Smith MD HEMATOLOGY ORDERABLES Performing Organization Address City/State/[place] [address] VS Angiogram/intervention (vascular) (08/10/2017 [...] 2.5x80 5. Completion RLE angiogram 6. L PECAN CLEANER angiogram 7. 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 L PECAN CLEANER access in the distal L PECAN CLEANER. - Closure device: Mynx Technical Procedure: ?The [...] for a 45cm 5F Destination. V18 and Idalia a nd QuickCross catheters were used to [...] bifurcation. Access appeared in the distal R PECAN CLEANER. Closure and sheath removal was performed with [...] 2.5x80 5. Completion RLE angiogram 6. L PECAN CLEANER angiogram 7. 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 L PECAN CLEANER access in the distal L PECAN CLEANER. - Closure device: Mynx Technical Procedure: The [...] for a 45cm 5F Destination. V18 and Idalia a nd QuickCross catheters were used to [...] bifurcation. Access appeared in the distal R PECAN CLEANER. Closure and sheath removal was performed with [...] (ABNORMAL) Differential, Automated (08/10/2017 5:50 AM EST) [facility] gist Method Time Signature Neutrophils % 80.1 % [facility] LABORATORY Neutr Abs (ANC) 9.01 (H) 1.70 - [facility] 6.10 [facility] x10(3)/[facility] L LABORATORY Lymphocytes % 8.8 % [facility] LABORATORY Lymphocytes Abs 1.0 0.9 - 3.2 [facility] x10(3)/[facility] LABORATORY Monocytes % 8.3 % [facility] LABORATORY Monocyte Abs 0.9 0.3 - 0.9 [facility] x10(3)/[facility] LABORATORY Eosinophils % 2.0 % [facility] LABORATORY Eosinophils Abs 0.2 0.0 - 0.4 [facility] x10(3)/[facility] LABORATORY Basophils % 0.4 % [facility] LABORATORY Basophils Abs 0.0 0.0 - 0.1 [facility] x10(3)/[facility] LABORATORY Immature Gran % 0.40 % [facility] [...] 0.05 (H) 0.00 - 0.04 x10(3)/[facility] LABORATORY Specimen Anatomical Collection Method Collection Time Receive d Time (Source) Location / / Volume Laterality Blood specimen 08/10/2017 5:50 AM 018 5:59 (specimen) EST AM EST Resulting Agency Comment Spec In Lab Yonathan Smith MD HEMATOLOGY ORDERABLES Performing Organization Address City/State/[place] [address] (ABNORMAL) Hemogram (08/10/2017 5:50 AM EST) Analysis Performed At Patho logist Time Signature WBC 11.3 (H) 4.0 - 9.5 [facility] x10(3)/[facility] LABORATORY RBC 3.15 (L) 4.58 - [facility] SU 5.54 [facility] x10(6)/[facility] LABORATORY Hemoglobin 8.9 (L) 13.7 - [facility] gm/dL [facility] LABORATORY Hematocrit 29.0 (L) 40.5 - [facility] SU 48.5 % [facility] LABORATORY MCV 92.1 82.9 - [facility] [facility] LABORATORY MCH 28.3 27.5 - [place] 32.[address] [facility] LABORATORY MCHC 30.7 (L) 32.0 - [facility] 35.7 gm/dL [facility] LABORATORY Platelets 231 145 - 357 [facility] x10(3)/[facility] LABORATORY RDWSD 53.9 (H) 36.0 - [facility] 45.0 [facility] LABORATORY RDWCV 16.2 (H) 11.4 - [facility] 13.8 % [facility] LABORATORY MPV 8.7 7.6 - 12.9 [facility] LABORATORY nRBC % Auto 0.0 % [facility] LABORATORY nRBC Abs Auto 0.000 0.000 - [facility] 0.000 [facility] x10(3)/[facility] LABORATORY Specimen Anatomical Collection Method Collection Time Receive d Time (Source) Location / / Volume Laterality Blood specimen 08/10/2017 5:50 AM 018 5:59 (specimen) EST AM EST Resulting Agency Comment Spec In Lab Yonathan Smith MD HEMATOLOGY ORDERABLES Performing Organization Address City/State/[place] [address] (ABNORMAL) Basic Metabolic Panel (non-fasting) (08/10/2017 5:50 AM EST) P athologist Signature Glucose Lvl 135 65 - 199 [facility] mg/dL [facility] LABORATORY Comment: Diabetes: >=200 mg/dL [...] [facility]ICAL CENTER LABORATORY Estimated GFR >60 >=60 [facility] LABORATORY Comment: The reported eGFR should be multiplied b y 1.2 for patients. The MDRD is not an appropriate measure o f renal function for patients with body mass extremes or in patients with acute kidney failure. http://[employer])/DHnkdep http://[employer])/DHMCnkf Specimen Anatomical Collection Method Collection Time Receive d Time (Source) Location / / Volume Laterality Blood specimen 08/10/2017 5:50 AM 018 5:59 (specimen) EST AM EST Resulting Agency Comment Spec In Lab Yonathan Smith MD CHEMISTRY ORDERABLES Performing Organization Address [facility] Code Phon e Number [address] (ABNORMAL) Prothrombin Time (08/10/2017 [...] HEMATOLOGY ORDERABLES Performing Organization Address City/[facility] [place] [address] (ABNORMAL) POCT Glucose (08/10/2017 4:01 AM EST) P athologist Signature POC Glucose 206 (H) 65 - 199 [facility] mg/dL [facility] LABORATORY Comment: Supplemental ranges: <140 mg/dL before meals <180 mg/dL all other times of the day Specimen Anatomical Collection Method Collection Time Receive d Time (Source) Location / / Volume Laterality Blood specimen 08/10/2017 4:01 AM 018 4:01 (specimen) EST AM EST Yonathan Smith MD POINT OF CARE TEST ORDERABLE S Performing Organization Address City/State/[place] [address] POCT Glucose (08/10/2017 2:01 AM EST) athologist Signature POC Glucose 188 65 - 199 [place] mg/dL [facility] LABORATORY Comment: Supplemental ranges: <140 mg/dL before meals <180 mg/dL all other times of the day Specimen Anatomical Collection Method Collection Time Receive d Time (Source) Location / / Volume Laterality Blood specimen 08/10/2017 2:01 AM 018 2:01 (specimen) EST AM EST Yonathan Smith MD POINT OF CARE TEST ORDERABLE S Performing Organization Address City/State/[place] [address] (ABNORMAL) POCT Glucose (08/09/2017 11:42 PM EST) athologist Signature POC Glucose 283 (H) 65 - 199 [place] mg/dL [facility] LABORATORY Comment: Supplemental ranges: <140 mg/dL before meals <180 mg/dL all other times of the day Specimen Anatomical Collection Method Collection Time Receive d Time (Source) Location / / Volume Laterality Blood specimen 08/09/2017 11:42 8 (specimen) PM EST 11:42 PM EST Yonathan Smith MD POINT OF CARE TEST ORDERABLE S Performing Organization Address City/State/ZIP Code Phon e Number [address] POCT Glucose (08/09/2017 8:55 PM EST) athologist Signature POC Glucose 182 65 - 199 [place] mg/dL [facility] LABORATORY Comment: Supplemental ranges: <140 mg/dL before meals <180 mg/dL all other times of the day Specimen Anatomical Collection Method Collection Time Receive d Time (Source) Location / / Volume Laterality Blood specimen 08/09/2017 8:55 PM 018 8:55 (specimen) EST PM EST Yonathan Smith MD POINT OF CARE TEST ORDERABLE S Performing Organization Address City/State/[place] [address] (ABNORMAL) APTT (08/09/2017 6:42 PM EST) athologist Signature PTT 90 (H) 25 - 35 sec [facility] LABORATORY Comment: The recommended therapeutic range for fu ll dose, unfractionated heparin at [facility] is 80 ? 114 seconds. The use [...] Organization Address City/State/[place] [address] POCT Glucose (08/09/2017 4:41 PM EST) athologist Signature POC Glucose 195 65 - 199 [facility] LABORATORY Comment: Supplemental ranges: <140 mg/dL before meals <180 mg/dL all other times of the day Specimen Anatomical Collection Method Collection Time Receive d Time (Source) Location / / Volume Laterality Blood specimen 08/09/2017 4:41 PM 018 4:41 (specimen) EST PM EST Yonathan Smith MD POINT OF CARE TEST ORDERABLE S Performing Organization Address City/[facility]/[place] [address] POCT Glucose (08/09/2017 12:29 PM EST) athologist Signature POC Glucose 140 65 - 199 [facility] SU mg/dL [facility] LABORATORY Comment: Supplemental ranges: <140 mg/dL before meals <180 mg/dL all other times of the day Specimen Anatomical Collection Method Collection Time Receive d Time (Source) Location / / Volume Laterality Blood specimen 08/09/2017 12:29 8 (specimen) PM EST 12:29 PM EST Yonathan Smith MD POINT OF CARE TEST ORDERABLE S Performing Organization Address City/[facility]/ZIP Code Phon e Number [address] POCT Glucose (08/09/2017 9:59 AM EST) P athologist Signature POC Glucose 135 65 - 199 [facility] mg/dL [facility] LABORATORY Comment: Supplemental ranges: <140 mg/dL before meals <180 mg/dL all other times of the day Specimen Anatomical Collection Method Collection Time Receive d Time (Source) Location / / Volume Laterality Blood specimen 08/09/2017 9:59 AM 018 9:59 (specimen) EST AM EST Yonathan Smith MD POINT OF CARE TEST ORDERABLE S Performing Organization Address City/[facility]/[place] [address] Specimen to Pathology (08/09/2017 [...] City/[facility]/[place] [address] Surgical Pathology Report (08/09/2017 8:40 AM EST) Component Value Ref Test Analysis Performed At Patholo gist Range Method Time Signature Surgical [id number] ? [facility]; [facility] Report The signing pathologist has (i) examined [...] Henrique Flower Verified: ??08/13/2017 ?Pathologist Performed at: ??-[facility] Dept. of Pathology, [place], [place] CLINICAL INFORMATION Specimen Submitted: A - [...] Organization Address City/State/ZIP Code Phon e Number [place] [id number] HOSPITAL LABORATORY Drive Anaerobic Culture (08/09/2017 8:30 AM EST) [facility] Method Time Signature Anaerobic No anaerobic [facility] Culture organisms [facility] LABORATORY Specimen Anatomical Collection Method Collection Time [...] City/[facility]/ZIP Code Phon e Number [place] [id number] HOSPITAL LABORATORY Drive (ABNORMAL) Abscess/Wound Aspirate Culture (08/09/2017 8:30 AM EST) [facility] Method Time Signature Abscess/Wound Moderate mixed [facility] Aspirate bacterial [place] Culture morphotypes [facility] normal LABORATORY cutaneous leroy (A) Gram Stain Rare White Blood Cells [place] Few Gram Positive Cocci in pairs [place] () [facility] LABORATORY Organism Gram Positive [place] Cocci in pairs [place] () [facility] LABORATORY Specimen Anatomical Collection Method [...] Address City/State/[place] [address] POCT Glucose (08/09/2017 4:28 AM EST) P athologist Signature POC Glucose 128 65 - 199 [facility] LABORATORY Comment: Supplemental ranges: <140 mg/dL before meals <180 mg/dL all other times of the day Specimen Anatomical Collection Method Collection Time Receive d Time (Source) Location / / Volume Laterality Blood specimen 08/09/2017 4:28 AM 018 4:28 (specimen) EST AM EST Yonathan Smith MD POINT OF CARE TEST ORDERABLE S Performing Organization Address City/State/[place] [address] ABORH Recheck Status (08/09/2017 1:10 AM EST) [facility] Method Time Signature ABORH Type Completed [facility] LABORATORY Specimen Anatomical Collection Method Collection Time Receive d Time (Source) Location / / Volume Laterality Blood specimen 08/09/2017 1:10 AM 018 1:35 (specimen) EST AM EST Resulting Agency Comment Spec In Lab Yonathan Smith MD BLOOD BANK ORDERABLES Performing Organization Address City/[facility]/[place] [address] Antibody screen (08/09/2017 1:10 AM EST) [facility] Method Time Signature Ab Screen Negative [facility] LABORATORY Expires at 08/12/2017 [facility] [id number] on: [facility] LABORATORY Specimen Anatomical Collection Method Collection Time Receive d Time (Source) Location / / Volume Laterality Blood specimen 08/09/2017 1:10 AM 018 1:35 (specimen) EST AM EST Resulting Agency Comment Spec In Lab Yonathan Smith MD BLOOD BANK ORDERABLES Performing Organization Address City/State/[place] [address] ABO/Rh Typing (08/09/2017 1:10 [...] Organization Address City/State/[place] [address] (ABNORMAL) APTT (08/09/2017 1:10 AM EST) P athologist Signature PTT 86 (H) 25 - 35 sec [facility] LABORATORY Comment: The recommended therapeutic range for fu ll dose, unfractionated heparin at [facility] is 80 ? 114 seconds. The use [...] Organization Address City/State/[place] [address] (ABNORMAL) Differential, Automated (08/09/2017 1:10 AM EST) Patholo gist Method Time Signature Neutrophils % 76.2 % [facility] LABORATORY Neutr Abs (ANC) 8.59 (H) 1.70 - [facility] 6.10 [facility] x10(3)/[facility] LABORATORY Lymphocytes % 11.0 % [facility] LABORATORY Lymphocytes Abs 1.2 0.9 - 3.2 [facility] x10(3)/[facility] LABORATORY Monocytes % 8.4 % [facility] LABORATORY Monocyte Abs 1.0 (H) 0.3 - 0.9 [facility] x10(3)/[facility] LABORATORY Eosinophils % 3.5 % [facility] LABORATORY Eosinophils Abs 0.4 0.0 - 0.4 [facility] x10(3)/[facility] LABORATORY Basophils % 0.5 % [facility] LABORATORY Basophils Abs 0.1 0.0 - 0.1 [facility] x10(3)/[facility] LABORATORY Immature Gran % 0.40 % [facility] [...] 0.05 (H) 0.00 - 0.04 x10(3)/[facility] LABORATORY Specimen Anatomical Collection Method Collection Time Receive d Time (Source) Location / / Volume Laterality Blood specimen 08/09/2017 1:10 AM 018 1:19 (specimen) EST AM EST Resulting Agency Comment Spec In Lab Yonathan Smith MD HEMATOLOGY ORDERABLES Performing Organization Address City/State/[place] [address] (ABNORMAL) Hemogram (08/09/2017 1:10 AM EST) Analysis Performed At Patho logist Time Signature WBC 11.3 (H) 4.0 - 9.5 [facility] x10(3)/[facility] LABORATORY RBC 3.47 (L) 4.58 - [facility] x10(6)/[facility] LABORATORY Hemoglobin 10.0 (L) 13.7 - [facility]dL [facility] LABORATORY Hematocrit 31.9 (L) 40.5 - [facility] 48.5 % [facility] LABORATORY MCV 91.9 82.9 - [facility] 93[facility]1 [facility] LABORATORY MCH 28.8 27.5 - [facility] SU 32.[address] [facility] LABORATORY MCHC 31.3 (L) 32.0 - [facility] 35.7 gm/dL [facility] LABORATORY Platelets 234 145 - 357 [facility] x10(3)/[facility] LABORATORY RDWSD 54.0 (H) 36.0 - [facility] SU 45.0 [facility] LABORATORY RDWCV 16.2 (H) 11.4 - [facility] SU 13.8 % [facility] LABORATORY MPV 8.7 7.6 - 12.9 [facility] LABORATORY nRBC % Auto 0.0 % [facility] LABORATORY nRBC Abs Auto 0.000 0.000 - [facility] 0.000 [facility] x10(3)/[facility] LABORATORY Specimen Anatomical Collection Method Collection Time Receive d Time (Source) Location / / Volume Laterality Blood specimen 08/09/2017 1:10 AM 018 1:19 (specimen) EST AM EST Resulting Agency Comment Spec In Lab Yonathan Smith MD HEMATOLOGY ORDERABLES Performing Organization Address City/[facility]/[place] [address] (ABNORMAL) Prothrombin Time (08/09/2017 [...] City/[facility]/[place] [address] (ABNORMAL) Basic Metabolic Panel (non-fasting) (08/09/2017 1:10 AM EST) athologist Signature Glucose Lvl 108 65 - 199 [facility] mg/dL [facility] LABORATORY Comment: Diabetes: >=200 mg/dL [...] or in patients with acute kidney failure. http://[employer]/DHnkdep http://[employer])/DHMCnkf Specimen Anatomical Collection Method Collection Time Receive d Time (Source) Location / / Volume Laterality Blood specimen 08/09/2017 1:10 AM 018 1:19 (specimen) EST AM EST Resulting Agency Comment Spec In Lab Yonathan Smith MD CHEMISTRY ORDERABLES Performing Organization Address City/[facility]/[place] [address] POCT Glucose (08/09/2017 12:05 AM EST) P athologist Signature POC Glucose 128 65 - 199 [facility] mg/dL [facility] LABORATORY Comment: Supplemental ranges: <140 mg/dL before meals <180 mg/dL all other times of the day Specimen Anatomical Collection Method Collection Time Receive d Time (Source) Location / / Volume Laterality Blood specimen 08/09/2017 12:05 8 (specimen) AM EST 12:05 AM EST Yonathan Smith MD POINT OF CARE TEST ORDERABLE S Performing Organization Address City/State/ZIP [place] [address] (ABNORMAL) POCT Glucose (08/08/2017 7:36 PM EST) athologist Signature POC Glucose 215 (H) 65 - 199 [facility] mg/dL [facility] LABORATORY Comment: Supplemental ranges: <140 mg/dL before meals <180 mg/dL all other times of the day Specimen Anatomical Collection Method Collection Time Receive d Time (Source) Location / / Volume Laterality Blood specimen 08/08/2017 7:36 PM 018 7:36 (specimen) EST PM EST Yonathan Smith MD POINT OF CARE TEST ORDERABLE S Performing Organization Address City/[facility]/ZIP Code Phon e Number [address] (ABNORMAL) POCT Glucose (08/08/2017 6:23 PM EST) athologist Signature POC Glucose 216 (H) 65 - 199 [facility] mg/dL [facility] LABORATORY Comment: Supplemental ranges: <140 mg/dL before meals <180 mg/dL all other times of the day Specimen Anatomical Collection Method Collection Time Receive d Time (Source) Location / / Volume Laterality Blood specimen 08/08/2017 6:23 PM 018 6:23 (specimen) EST PM EST Yonathan Smith MD POINT OF CARE TEST ORDERABLE S Performing Organization Address City/[facility]/[place] [address] (ABNORMAL) APTT (08/08/2017 6:00 PM EST) athologist Signature PTT 97 (H) 25 - 35 sec [facility] LABORATORY Comment: The recommended therapeutic range for fu ll dose, unfractionated heparin at [facility] is 80 ? 114 seconds. The use [...] Address City/State/ZIP Code Phon e Number [address] POCT Glucose (08/08/2017 4:42 PM EST) athologist Signature POC Glucose 78 65 - 199 [facility] LABORATORY Comment: Supplemental ranges: <140 mg/dL before meals <180 mg/dL all other times of the day Specimen Anatomical Collection Method Collection Time Receive d Time (Source) Location / / Volume Laterality Blood specimen 08/08/2017 4:42 PM 018 4:42 (specimen) EST PM EST Yonathan Smith MD POINT OF CARE TEST ORDERABLE S Performing Organization Address City/[facility]/[place] [address] (ABNORMAL) POCT Glucose (08/08/2017 4:01 PM EST) athologist Signature POC Glucose 58 (L) 65 - 199 [facility] mg/dL [facility] LABORATORY Comment: Supplemental ranges: <140 mg/dL before meals <180 mg/dL all other times of the day Specimen Anatomical Collection Method Collection Time Receive d Time (Source) Location / / Volume Laterality Blood specimen 08/08/2017 4:01 PM 018 4:01 (specimen) EST PM EST Yonathan Smith MD POINT OF CARE TEST ORDERABLE S Performing Organization Address City/State/[place] [address] POCT Glucose (08/08/2017 11:51 AM EST) athologist Signature POC Glucose 90 65 - 199 [facility] mg/dL [facility] LABORATORY Comment: Supplemental ranges: <140 mg/dL before meals <180 mg/dL all other times of the day Specimen Anatomical Collection Method Collection Time Receive d Time (Source) Location / / Volume Laterality Blood specimen 08/08/2017 11:51 8 (specimen) AM EST 11:51 AM EST Yonathan Smith MD POINT OF CARE TEST ORDERABLE S Performing Organization Address [facility]/ZIP Code Phon e Number [place], [place] [address] (ABNORMAL) APTT (08/08/2017 10:27 AM EST) athologist Signature PTT 64 (H) 25 - 35 sec [facility]OR[facility]ORY Comment: The recommended therapeutic range for fu ll dose, unfractionated heparin at [facility] is 80 ? 114 seconds. The use [...] City/[facility]/[place] [address] POCT Glucose (08/08/2017 8:02 AM EST) athologist Signature POC Glucose 178 65 - 199 [facility] mg/dL [facility] LABORATORY Comment: Supplemental ranges: <140 mg/dL before meals <180 mg/dL all other times of the day Specimen Anatomical Collection Method Collection Time Receive d Time (Source) Location / / Volume Laterality Blood specimen 08/08/2017 8:02 AM 018 8:02 (specimen) EST AM EST Yonathan Smith MD POINT OF CARE TEST ORDERABLE S Performing Organization Address City/[facility]/[place] [address] (ABNORMAL) APTT (08/08/2017 4:51 AM EST) athologist Signature PTT >160 25 - 35 [facility] (Critical) sec [facility] Comment: Called by: HOWARD, Read back by: Melba Jaramillo, Date/Time:08/08/17 05:43. The recommended therapeutic range for fu ll dose, unfractionated heparin at [facility] is 80 ? 114 seconds. The use [...] Address City/State/[place] [address] (ABNORMAL) Differential, Automated (08/08/2017 4:51 AM EST) [facility] Method Time Signature Neutrophils % 77.9 % [facility] Neutr Abs (ANC) 8.17 (H) 1.70 - [facility] 6.10 [facility] x10(3)/[facility] LABORATORY Lymphocytes % 10.3 % [facility] Lymphocytes Abs 1.1 0.9 - 3.2 [facility] x10(3)/[facility] LABORATORY Monocytes % 7.0 % [facility] Monocyte Abs 0.7 0.3 - 0.9 [facility] x10(3)/[facility] LABORATORY Eosinophils % 3.6 % [facility] Eosinophils Abs 0.4 0.0 - 0.4 [facility] x10(3)[facility] LABORATORY Basophils % 0.5 % [facility] Basophils Abs 0.0 0.0 - 0.1 [facility] x10(3)[facility] LABORATORY Immature Gran % [...] 0.07 (H) 0.00 - 0.04 x10(3)/[facility] LABORATORY Specimen Anatomical Collection Method Collection Time Receive d Time (Source) Location / / Volume Laterality Blood specimen 08/08/2017 4:51 AM 018 5:14 (specimen) EST AM EST Resulting Agency Comment Spec In Lab Yonathan Smith MD HEMATOLOGY ORDERABLES Performing Organization Address City/State/[place] [address] (ABNORMAL) Hemogram (08/08/2017 4:51 AM EST) Analysis Performed At Patho logist Time Signature WBC 10.5 (H) 4.0 - 9.5 [facility] x10(3)/[facility] LABORATORY RBC 3.27 (L) 4.58 - [facility] x10(6)/[facility] LABORATORY Hemoglobin 9.3 (L) 13.7 - [facility]5 [facility]/dL [facility]ATORY Hematocrit 30.3 (L) 40.5 - [facility] 48.5 % [facility] LABORATORY MCV 92.7 82.9 - [facility] 93.1 [facility] LABORATORY MCH 28.4 27.5 - [facility] 32.[address] [facility] LABORATORY MCHC 30.7 (L) 32.0 - [facility] 35.7 gm/dL [facility] LABORATORY Platelets 252 145 - 357 [facility] x10(3)/[facility] LABORATORY RDWSD 54.6 (H) 36.0 - [facility] 45.0 [facility] LABORATORY RDWCV 16.2 (H) 11.4 - [facility] 13.8 % [facility] LABORATORY MPV 9.1 7.6 - 12.9 [facility] LABORATORY nRBC % Auto 0.0 % [facility] nRBC Abs Auto 0.000 0.000 - [facility] x10(3)/[facility] LABORATORY Specimen Anatomical Collection Method Collection Time Receive d Time (Source) Location / / Volume Laterality Blood specimen 08/08/2017 4:51 AM 018 5:14 (specimen) EST AM EST Resulting Agency Comment Spec In Lab Yonathan Smith MD HEMATOLOGY ORDERABLES Performing Organization Address City/[facility]/[place] [address] (ABNORMAL) Prothrombin Time (08/08/2017 [...] Organization Address City/State/[place] [address] (ABNORMAL) Basic Metabolic Panel (non-fasting) (08/08/2017 4:51 AM EST) P athologist Signature Glucose Lvl 229 (H) 65 - 199 [facility] mg/dL [facility] LABORATORY Comment: Diabetes: >=200 mg/dL [...] or in patients with acute kidney failure. http://[employer])/DHnkdep http://[employer])/DHnkf Specimen Anatomical Collection Method Collection Time Receive d Time (Source) Location / / Volume Laterality Blood specimen 08/08/2017 4:51 AM 018 5:14 (specimen) EST AM EST Resulting Agency Comment Spec In Lab Yonathan Smith MD CHEMISTRY ORDERABLES Performing Organization Address City/[facility]/ZIP Code Phon e Number [address] POCT Glucose (08/08/2017 4:20 AM EST) athologist Signature POC Glucose 193 65 - 199 [facility]/dL [facility]ORY Comment: Supplemental ranges: <140 mg/dL before meals <180 mg/dL all other times of the day Specimen Anatomical Collection Method Collection Time Receive d Time (Source) Location / / Volume Laterality Blood specimen 08/08/2017 4:20 AM 018 4:20 (specimen) EST AM EST Yonathan Smith MD POINT OF CARE TEST ORDERABLE S Performing Organization Address City/[facility]/ZIP Code Phon e Number [address] POCT Glucose (08/07/2017 11:11 PM EST) athologist Signature POC Glucose 124 65 - 199 [facility] Comment: Supplemental ranges: <140 mg/dL before meals <180 mg/dL all other times of the day Specimen Anatomical Collection Method Collection Time Receive d Time (Source) Location / / Volume Laterality Blood specimen 08/07/2017 11:11 8 (specimen) PM EST 11:11 PM EST Yonathan Smith MD POINT OF CARE TEST ORDERABLE S Performing Organization Address City/[facility]/[place] [address] (ABNORMAL) APTT (08/07/2017 10:18 PM EST) athologist Signature PTT 114 (H) 25 - 35 sec [facility] Comment: The recommended therapeutic range for fu ll dose, unfractionated heparin at [facility] is 80 ? 114 seconds. The use [...] City/[facility]/[place] [address] POCT Glucose (08/07/2017 8:10 PM EST) athologist Signature POC Glucose 140 65 - 199 [facility] mg/dL [facility]ATORY Comment: Supplemental ranges: <140 mg/dL before meals <180 mg/dL all other times of the day Specimen Anatomical Collection Method Collection Time Receive d Time (Source) Location / / Volume Laterality Blood specimen 08/07/2017 8:10 PM 018 8:10 (specimen) EST PM EST Yonathan Smith MD POINT OF CARE TEST ORDERABLE S Performing Organization Address City/[facility]/[place] [address] POCT Glucose (08/07/2017 5:27 PM EST) athologist Signature POC Glucose 187 65 - 199 [facility]dL [facility]ATORY Comment: Supplemental ranges: <140 mg/dL before meals <180 mg/dL all other times of the day Specimen Anatomical Collection Method Collection Time Receive d Time (Source) Location / / Volume Laterality Blood specimen 08/07/2017 5:27 PM 018 5:27 (specimen) EST PM EST Yonathan Smith MD POINT OF CARE TEST ORDERABLE S Performing Organization Address City/[facility]/ZIP Code Phon e Number [address] POCT Glucose (08/07/2017 3:29 PM EST) athologist Signature POC Glucose 86 65 - 199 [facility]dL [facility] Comment: Supplemental ranges: <140 mg/dL before meals <180 mg/dL all other times of the day Specimen Anatomical Collection Method Collection Time Receive d Time (Source) Location / / Volume Laterality Blood specimen 08/07/2017 3:29 PM 018 3:29 (specimen) EST PM EST Yonathan Smith MD POINT OF CARE TEST ORDERABLE S Performing Organization Address [facility]/ZIP Code Phon e Number [address] (ABNORMAL) APTT (08/07/2017 2:50 PM EST) athologist Signature PTT 60 (H) 25 - 35 sec [facility] Comment: The recommended therapeutic range for fu ll dose, unfractionated heparin at [facility] is 80 ? 114 seconds. The use [...] City/[facility]/ZIP Code Phon e Number [address] (ABNORMAL) POCT Glucose (08/07/2017 2:23 PM EST) athologist Signature POC Glucose 55 (L) 65 - 199 [facility]ORY Comment: Supplemental ranges: <140 mg/dL before meals <180 mg/dL all other times of the day Specimen Anatomical Collection Method Collection Time Receive d Time (Source) Location / / Volume Laterality Blood specimen 08/07/2017 2:23 PM 018 2:23 (specimen) EST PM EST Yonathan Smith MD POINT OF CARE TEST ORDERABLE S Performing Organization Address City/State/ZIP Code Phon e Number [address] POCT Glucose (08/07/2017 12:08 PM EST) athologist Signature POC Glucose 77 65 - 199 [facility] Comment: Supplemental ranges: <140 mg/dL before meals <180 mg/dL all other times of the day Specimen Anatomical Collection Method Collection Time Receive d Time (Source) Location / / Volume Laterality Blood specimen 08/07/2017 12:08 8 (specimen) PM EST 12:08 PM EST Yonathan Smith MD POINT OF CARE TEST ORDERABLE S Performing Organization Address City/State/ZIP Code Phon e Number [address] (ABNORMAL) Differential, Automated (08/07/2017 7:30 AM EST) [facility] gist Method Time Signature Neutrophils % 73.8 % [facility] Neutr Abs (ANC) 7.17 (H) 1.70 - [facility] 6.10 [facility] x10(3)/[facility] LABORATORY Lymphocytes % 12.2 % [facility] Lymphocytes Abs 1.2 0.9 - 3.2 [facility] x10(3)/[facility] LABORATORY Monocytes % 9.0 % [facility]ORY Monocyte Abs 0.9 0.3 - 0.9 [facility] x10(3)/[facility] LABORATORY Eosinophils % 3.9 % [facility]ORY Eosinophils Abs 0.4 0.0 - 0.4 [facility] x10(3)/[facility] LABORATORY Basophils % 0.6 % [facility]ORY Basophils Abs 0.1 0.0 - 0.1 [facility] x10(3)/[facility] LABORATORY Immature Gran % 0.50 % [facility] [...] 0.05 (H) 0.00 - 0.04 x10(3)/[facility] LABORATORY Specimen Anatomical Collection Method Collection Time Receive d Time (Source) Location / / Volume Laterality Blood specimen 08/07/2017 7:30 AM 018 7:45 (specimen) EST AM EST Resulting Agency Comment Spec In Lab Yonathan Smith MD HEMATOLOGY ORDERABLES Performing Organization Address City/State/ZIP Code Phon e Number [place] [id number] (ABNORMAL) Hemogram (08/07/2017 7:30 AM EST) Analysis Performed At Patho logist Time Signature WBC 9.7 (H) 4.0 - 9.5 [facility] x10(3)/[facility] LABORATORY RBC 3.54 (L) 4.58 - [facility] 5.54 [facility] x10(6)/[facility] LABORATORY Hemoglobin 9.9 (L) 13.7 - [facility]m/dL [facility] LABORATORY Hematocrit 32.3 (L) 40.5 - [facility] 48.5 % [facility]ORATORY MCV 91.2 82.9 - [facility] 93.[address] [facility] LABORATORY MCH 28.0 27.5 - [facility] 32.[address] [facility] LABORATORY MCHC 30.7 (L) 32.0 - [facility] 35.7 gm/dL [facility] LABORATORY Platelets 312 145 - 357 [facility] x10(3)/[facility] LABORATORY RDWSD 53.2 (H) 36.0 - [facility]0 [facility] LABORATORY RDWCV 16.0 (H) 11.4 - [facility] 13.8 % [facility] LABORATORY MPV 8.9 7.6 - 12.9 [facility] LABORATORY nRBC % Auto 0.0 % [facility]ORATORY nRBC Abs Auto 0.000 0.000 - [facility] 0.000 [facility] x10(3)/[facility] LABORATORY Specimen Anatomical Collection Method Collection Time Receive d Time (Source) Location / / Volume Laterality Blood specimen 08/07/2017 7:30 AM 018 7:45 (specimen) EST AM EST Resulting Agency Comment Spec In Lab Yonathan Smith MD HEMATOLOGY ORDERABLES Performing Organization Address City/State/[place] [address] (ABNORMAL) Basic Metabolic Panel (non-fasting) (08/07/2017 7:30 AM EST) P athologist Signature Glucose Lvl 80 65 - 199 [facility] mg/dL [facility] LABORATORY Comment: Diabetes: >=200 mg/dL [...] LABORATORY Calcium 8.5 8.5 - 10.5 mg/dL [facility] Lin[facility] LABORATORY Estimated GFR 59 (L) >=60 [facility] LABORATORY Comment: The reported eGFR should be multiplied b y 1.2 for patients. The MDRD is not an appropriate measure o f renal function for patients with body mass extremes or in patients with acute kidney failure. http://[employer])/DHnkdep http://[employer])/DHMCnkf Specimen Anatomical Collection Method Collection Time Receive d Time (Source) Location / / Volume Laterality Blood specimen 08/07/2017 7:30 AM 018 7:45 (specimen) EST AM EST Resulting Agency Comment Spec In Lab Yonathan Smith MD CHEMISTRY ORDERABLES Performing Organization Address City/[facility] Phon e Number [address] POCT Glucose (08/07/2017 7:27 AM EST) athologist Signature POC Glucose 81 65 - 199 [facility] mg/dL [facility] LABORATORY Comment: Supplemental ranges: <140 mg/dL before meals <180 mg/dL all other times of the day Specimen Anatomical Collection Method Collection Time Receive d Time (Source) Location / / Volume Laterality Blood specimen 08/07/2017 7:27 AM 018 7:27 (specimen) EST AM EST Yonathan Smith MD POINT OF CARE TEST ORDERABLE S Performing Organization Address City/[facility]/ZIP Code Phon e Number [address] APTT (08/07/2017 7:04 AM EST) athologist Signature PTT 34 25 - 35 sec [facility] Comment: The recommended therapeutic range for fu ll dose, unfractionated heparin at [facility] is 80 ? 114 seconds. The use [...] City/[facility]/[place] [address] (ABNORMAL) Prothrombin Time (08/07/2017 [...] City/[facility]/[place] [address] POCT Glucose (08/07/2017 4:03 AM EST) athologist Signature POC Glucose 93 65 - 199 [facility] mg/dL [facility] LABORATORY Comment: Supplemental ranges: <140 mg/dL before meals <180 mg/dL all other times of the day Specimen Anatomical Collection Method Collection Time Receive d Time (Source) Location / / Volume Laterality Blood specimen 08/07/2017 4:03 AM 018 4:03 (specimen) EST AM EST Yonathan Smith MD POINT OF CARE TEST ORDERABLE S Performing Organization Address City/[facility]/[place] [address] POCT Glucose (08/07/2017 12:04 AM EST) P athologist Signature POC Glucose 107 65 - 199 [facility] LABORATORY Comment: Supplemental ranges: <140 mg/dL before meals <180 mg/dL all other times of the day Specimen Anatomical Collection Method Collection Time Receive d Time (Source) Location / / Volume Laterality Blood specimen 08/07/2017 12:04 8 (specimen) AM EST 12:04 AM EST Yonathan Smith MD POINT OF CARE TEST ORDERABLE S Performing Organization Address City/[facility]/ZIP Code Phon e Number [address] POCT Glucose (08/06/2017 7:56 PM EST) P athologist Signature POC Glucose 178 65 - 199 [facility] LABORATORY Comment: Supplemental ranges: <140 mg/dL before meals <180 mg/dL all other times of the day Specimen Anatomical Collection Method Collection Time Receive d Time (Source) Location / / Volume Laterality Blood specimen 08/06/2017 7:56 PM 018 7:56 (specimen) EST PM EST Yonathan Smith MD POINT OF CARE TEST ORDERABLE S Performing Organization Address City/[facility]/[place] [address] TcPO2 (08/06/2017 2:32 PM EST) Component Value Ref Test [facility] Method Time Signature VB Text Department: Vascular Surgery Lab VASCUBASE Report Patient: [id number] (GREGORY HOANG) CPT: 2694675 ICD10: I99.8 Referring Physician: YONATHAN SMITH ?? [...] mg 0823 (Marc smith - Provider: Chiquis Mcrgath RN) 0807 (Given - Provider: Chiquis Mcgrath [...] - Comment: BG 135)1707 (Given - Provider: hCiquis Mcgrath, RN)2024 (Not Given - Provider: Mira [...] Provider: Chiquis Mcgrath RN)1542 (Given - Provider: Kmi Borges RN)2144 (Given - Provider: Alyson Middleton, [...]
Routine documented in this encounter Care Teams Banquet Line Cook Relationship Specialty Start Date End Date Lovely Vicente MD PCP - General 04/16/[address] [place] [address] [address] [place] [address] documented as of this encounter
--- OUTSIDE RECORDS SUMMARY | 2022-03-13 10:57 | XMS_ITS | Encounter Summary ---
:1945 Author Organization [facility] [place] [address] Care Team Providers Name Role Phone Lovely Vicente MD Primary Care Provider Encounter Details Date Type Department Care Team Description 08/09/2017 Clinical Support Same Day at [facility] Canceled (D-SCHED ERROR [facility] / CORRECT [place] ) [place] [id number] Social History Tobacco Use Types Packs/Day [...] MD [facility] [address] [place], [place] [address] (Wo rk) 05/28/2022 Appointment Cardiology Zulma Dolan MD [facility] [address] [place] [address] (Wo rk) 05/28/2022 Laboratory Appointment Lab 05/28/2022 Office Visit Cardiology Zulma Dolan MD [facility] [place] [address] Liz Poole PA [facility] [place] [address] 06/10/2022 Office Visit Dermatology Laura Scherer MD [facility] [address] [place], [place] [address] (Wo rk) documented as of this encounter Procedures Procedure Name Priority Date/Time Associated Diagnosis Comme nts LICENSING DIRECTOR 08/09/2017 12:00 AM Resul ts for this SCAN EST procedure are i n the results section. documented in this encounter Results SCAN DOC: LICENSING DIRECTOR (08/09/2017 12:00 AM EST) Narrative 08/09/2017 12:00 AM EST This result has an attachment that is no t available. Ordered by an unspecified provider. Scanning Provider MEDIA MGR SCAN EXT ORDR/RSLT documented in this encounter Visit Diagnoses Not on filedocumented in this encounter Care Teams Bulk Receiver Relationship Specialty Start Date End Date Lovely Vicente MD PCP - General 04/16/[address] [place] [address] documented as of this encounter
--- OUTSIDE RECORDS SUMMARY | 2022-03-13 10:57 | XMS_ITS | Encounter Summary ---
:1945 Author Organization [facility] [place] [address] Care Team Providers Name Role Phone Lovely Vicente MD Primary Care Provider Reason for Visit Auth/Cert Specialty Diagnoses / Procedures Referred By Contact Refer red To Contact Diagnoses Critical lower limb ischemia CELLULITIS RT FOOT Procedures EMERGENCY Referral ID Status Reason Start Date Expiration Date Visits Requ ested Visits Authorized [id number] 1 1 Encounter Details Date Type Department Care Team Description 08/09/2017 Surgery Main Operating Room Yonathan Smith AM PUTATION, Mary Hitchcock MD TRANSMETATARSAL ([facility] 12.71) [facility] DR Siddiqui [place] [address] [place] [address] [phone] Social History Tobacco Use Types Packs/Day Years [...] addition to 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 Patient [...] Dorsalis Pedis (Ankle) Artery ?132 ? 0.94 ??Mobile-Biphasic ? Posterior Tibial (Ankle) Artery ??154 ? 1.10 ??Mobile-Biphasic ? Fourth Toe ? 67 ?0.48 ?? [...] Discharge Conditions/Prognosis: Good Discharge to: [facility] Rehab Discharge Medications: Your Medications [...] For any problems or questions please call [phone] ZELDA Smith, engagement engineer Nurse Clinician For issues on weeknights after 5pm and weekends please call [phone] and ask for the Vascular Fellow long filler cigar roller machine. General Instructions None Future Appointments and Orders Future Appointments Provider Department Dept Phone 08/26/2017 4:00 PM Aurelia Rivera PA V[facility] Surgery [facility] [place] [phone] 09/07/2017 3:00 PM LAB, THREE L Lab 3L [facility] [phone] 09/07/2017 4:00 PM Luz Prescott MD Endocrinology at [place] [phone] 09/09/2017 8:00 AM Barbra Soares APRN Pain Management [facility] [place] [phone] Please bring a list of your current [...] For any problems or questions please call [phone] ZELDA Smith, engagement engineer Nurse Clinician For issues on weeknights after 5pm and weekends please call [phone] and ask for the Vascular Fellow long filler cigar roller machine. documented in this encounter Medications at Time [...] Discharge Note Patient Destination: [facility] ([facility]) [address] [address] Transportation: with (at bedside) Time of Discharge: by 12 noon Level of Care: swing Patient Aware: yes Family Notified: yes Md to call report to: Yissel Quintero CHEMISTRY SPECIALIST already called RN to call report to: [phone] Shirin Wofl Office of Care Management Pager [phone] Shirin Wolf RN - 08/16/2017 10:50 AM EST [facility] has offered pt swing bed. Pt and accept bed. will transport via car. CHEMISTRY SPECIALIST Yissel Quintero aware; d/c paperwork will be completed by 12 noon. [facility] requests pt arrival by 1400 today; CHEMISTRY SPECIALIST, RN, and family aware. CHEMISTRY SPECIALIST called [facility] and was told that they prefer pt to arrive with wound vac dressing applied but clamped. CHEMISTRY SPECIALIST applied new wound vac dressing. RN has [facility] number to call report. PASSR completed; CHEMISTRY SPECIALIST paged to request provider signature in highlighted space. Indigo from [facility] notified via email that home wound vac now cancelled; [facility] has picked up from room and order cancelled. Packet started and provided to pulling unit floorhand. Medicare important message explained to patient, patient signed. Copy provided to patient and signature page to OCM for inclusion in pt EMR. L Radha Powers Yoselin - 08/16/2017 10:34 AM EST Office of Care Management/Welder Gun Patient Name: Gregory Hoang : 1945 Patient has been offered a swing bed at [facility]. The patient will be transported by private transportation. No MD to MD report necessary Please call Nursing Report to [phone], ask for transit planning director. Info to accompany patient: Narcotic Prescriptions Copies of Medication Administration Records and IV sheets for past 10 days. Plan: Welder Gun will be available to the patient and Dairy Department Manager-RN and/or Airline Manager for further assistance. Patient will be discharged to: [id number] Radha Powers, Welder Gun Mira Truong, VAMSI - 08/15/2017 10:05 PM EST [address] Flores to ask if he wanted to hold metoprolol dose. BP 95/58. OK to hold this dose Courtney Brito - 08/15/2017 3:26 PM EST Office of Care Management(OCM)/Welder Gun(RS)/ D/C Planning re : Patient is medically ready for d/c today. RS has been in contact with [facility] to see if they could offer a bed. [facility] is still reviewing the case and need their MD to review chart prior to accepting or declining. OCM team needs to check in with [facility] tomorrow to check on status. 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 staff: Looks well. Vac in place. Rehab referrals ongoing. Can ambulate in hallway. Change VAC at bedside today. Naty Colindres RN - 08/14/2017 1:33 PM EST Patient Name: Gregory Hoang Patient Age: 72 y.o. Birthdate: 1945 Admit date: 08/06/2017 Attending Physician: Yonathan Smith MD We want him to go to a place for intensive therapy and not at a snf where he will be just sitting there and not getting any therapy. . Contacted by direct care RN, who said that patient and would like information about patient's referral to: [facility] PHONE: [phone] FAX: [phone] CM spoke with RS who said that [...] rehab. Await recommendations from PT. Covering pager #[phone]. 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 Continuous Improvement Coordinator Kaitlin Saha, RN Pager #[phone] Payam Rosales - 08/13/2017 2:37 PM EST Transportation Services Representative Encounter Note Patient Name: Gregory Hoang : [id number] MR#: [id number] Admit Date: 08/06/2017 1:41 PM Hospital Day 7 days Narrative: Visited to introduce and assess acceptance of Transportation Services Representative services. Pt was awake, alert, oriented and in chair and family was there. Assessment:Patient coping positively with stresses of illness/hospitalization at this time. Pt says that he is hoping to get better and his family was there. Pt says that he has family care and supportand taking one day at time. Intervention and Outcome: Provided emotional support and encouraging presence. 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 A letter describing our affiliations was reviewed with them and theywere educated about their right to choose where referrals are placed. Patient requests referral to [facility]. PHONE: [phone] FAX: [phone]. And Home NPWT (Negative Pressure Wound Therapy) aka wound vac device made available to pt. Serial # confirmed. Reviewed [facility] Proof of Delivery/Assignment of Benefits Statement(POD/AOB) Form w patient or authorized agent signing on behalf of patient. Copy of POD/AOB provided to pt and other copy faxed to [employer] @ fax# [phone] Expected date of discharge: 08/12/2017. 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 Address: [address] [place] [address] [place] [address] (home) Mobile: Telephone Information: Referring Provider: No [...] SETUP performed by Manny Mcknight MD at [facility] MAIN OR ??? PRO CABG, ARTERIAL, SINGLE N/A 07/07/2017 @CABG, USING ARTERIAL GRAFT;SINGLE ARTERIAL GRAFT (WRVU 33.75) performed by Yuan Retana MD at [facility] MAIN OR ??? PRO CABG, ARTERY-VEIN, TWO N/A 07/07/2017 @CABG, TWO VENOUS GRAFTS & ARTERIAL GRAFT (WRVU 7.93) performed by Yuan Retana MD at [facility] MAIN OR ??? PRO COLONOSCOPY, REMV LESN, SNARE 01/16/2014 COLONOSCOPY, POLYPECTOMY, REMOVAL LESION BY SNARE performed by Nohemi Jaimes MD at [facility] ENDOSCOPY ??? PRO ENDOSCOPY W/VIDEO-ASST VEIN HARVEST, CABG Right 07/07/2017 ENDOSCOPIC HARVEST VEIN(S) FOR CABG (WRVU 0.31) performed by Yuan Retana MD at [facility] MAIN OR ??? 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 Heparin gtt continues to run. Pt a/ox4. [...] of : 1945 AGE 72 y.o. Address: [address] [place] [address] [place] [address] (home) Mobile: Telephone Information: Referring Provider: No [...] SETUP performed by Manny Mcknight MD at [facility] MAIN OR ??? PRO CABG, ARTERIAL, SINGLE N/A 07/07/2017 @CABG, USING ARTERIAL GRAFT;SINGLE ARTERIAL GRAFT (WRVU 33.75) performed by Yuan Retana MD at [facility] MAIN OR ??? PRO CABG, ARTERY-VEIN, TWO N/A 07/07/2017 @CABG, TWO VENOUS GRAFTS & ARTERIAL GRAFT (WRVU 7.93) performed by Yuan Retana MD at [facility] OR ??? PRO COLONOSCOPY, REMV LESN, SNARE 01/16/2014 COLONOSCOPY, POLYPECTOMY, REMOVAL LESION BY SNARE performed by Nohemi Jaimes MD at [facility] ENDOSCOPY ??? PRO ENDOSCOPY W/VIDEO-ASST VEIN HARVEST, CABG Right 07/07/2017 ENDOSCOPIC HARVEST VEIN(S) FOR CABG (WRVU 0.31) performed by Yuan Retana MD at [facility] MAIN OR ??? 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 Vascular resident long filler cigar roller machine and will forward result to the team prior to rounds. 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 Patient [...] SETUP performed by Manny Mcknight MD at [facility] MAIN OR ??? PRO CABG, ARTERIAL, SINGLE N/A 07/07/2017 @CABG, USING ARTERIAL GRAFT;SINGLE ARTERIAL GRAFT (WRVU 33.75) performed by Yuan Retana MD at [facility] MAIN OR ??? PRO CABG, ARTERY-VEIN, TWO N/A 07/07/2017 @CABG, TWO VENOUS GRAFTS & ARTERIAL GRAFT (WRVU 7.93) performed by Yuan Retana MD at [facility] MAIN OR ??? PRO COLONOSCOPY, REMV LESN, SNARE 01/16/2014 COLONOSCOPY, POLYPECTOMY, REMOVAL LESION BY SNARE performed by Nohemi Jaimes MD at [facility] ENDOSCOPY ??? PRO ENDOSCOPY W/VIDEO-ASST VEIN HARVEST, CABG Right 07/07/2017 ENDOSCOPIC HARVEST VEIN(S) FOR CABG (WRVU 0.31) performed by Yuan Retana MD at [facility] MAIN OR ??? PRO THYROIDECTOMY 03/28/2013 THYROIDECTOMY, TOTAL OR COMPLETE performed by Manny Mcknight MD at [facility] MAIN OR Functional Status/Social Hx: Quit smoking [...] of nonopacification; splenic infarcts not Excluded. Assessment: Greogry Hoang is a 72 y.o. 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 [...] 2.5x80 5. Completion RLE angiogram 6. L SALES REPRESENTATIVE PUBLIC UTILITIES angiogram 7. 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 - L SALES REPRESENTATIVE PUBLIC UTILITIES angriogram demonstrated: High femoral bifurcation over the proximal half of the femoral head. L SALES REPRESENTATIVE PUBLIC UTILITIES access in the distal L SALES REPRESENTATIVE PUBLIC UTILITIES. - Closure device: Mynx Technical Procedure: The [...] for a 45cm 5F Destination. V18 and [place] and QuickCross catheters were used to select [...] 5F. A stationed picture of the L SALES REPRESENTATIVE PUBLIC UTILITIES was performed as the patient was noted to have a very high bifurcation. Access appeared in the distal R SALES REPRESENTATIVE PUBLIC UTILITIES. Closure and sheath removal was performed with [...] PM EST 1440 report called to 5 baltic nurse Tessa RN documented in this encounter [...] and pt's spouse. Discharge to [facility]. Goal: Individualization & Mutuality Outcome: [...] sit/sit to supine -- Bed Mobility Goal, Marshall Level independent -- Bed Mobility Goal, Date [...] days -- Transfer Training Goal, Activity Type mzm-al-hqrse/anonv-rx-bvz -- Transfer Train Goal, Marshall Level conditional independence -- Transfer Train Goal, [...] call cabello within reach, Hourly rounding by RN/FUEL HOUSE ATTENDANT. Bed alarm / Chair alarm. Patient-specific fall [...] Operative Note Patient Name: Gregory Hoang : [id number] MR#: [id number] Case Date: 08/09/2017 Surgeon: Surgeon(s) and Role: [...] 2.5x80 5. Completion RLE angiogram 6. L SALES REPRESENTATIVE PUBLIC UTILITIES angiogram 7. Mynx closure Precautions/Restrictions: fall, sternal [...] other (see comments) (or swing bed) Pager: [phone] BASSAM ELIAS, PT 08/14/2017 Inpatient Physical Therapy [...] to Achieve by discharge Gait Training Goal, Marshall Level conditional independence;set up required Gait Training [...] over the weekend except for [facility]. CM spoke with [facility] CM Drea Sandhu, VAMSI who said that they do not anticipate any beds over the weekend. Reviewed with patient/ that they need to be aware that patient will need to take the first bed offered at the facilities that they make referrals to. Their choices are: 1- [facility] PHONE: [phone] FAX: [phone] 2- [facility] ([facility]) [address] [place] [address] 3- [facility] [address] [place] [address] I have discussed Medicare/Private Insurance [...] RS/CM on Wednesday to follow-up. Covering pager #[phone] for today. Plan of Care - Henrique [...] with additional findings of pseudoaneurysm on R SALES 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 Was [...] an outpatient once discharged. Have patient call [phone] to set up an appointment. Follow-up: Dermatology will sign-off for now. Please do not hesitate to contact us if you have any questions orconcerns. Impression and Recommendations discussed with primary team on 08/13/2017. Karo Henderson MD Resident in Dermatology Section of Dermatology, Department of Surgery [facility] Pager [phone] Patient seen and evaluated with staff Shroud Line Tier: Halima Cordero MD Section of Dermatology [facility] Level of Resident Supervision: Direct [...] Outcome: Ongoing (Interventions Implemented as Appropriate) 08/12/17 5396 Coping/Psychosocial Plan Of Care Reviewed With patient;spouse [...] 2.5x80 5. Completion RLE angiogram 6. L SALES REPRESENTATIVE PUBLIC UTILITIES angiogram 7. Mynx closure Active Non-Hospital Problems [...] home with home health ([facility] PT&OT) Pager: [phone] YASIR TELLO OT 08/12/2017 Occupational Therapy Rehabilitation [...] 2.5x80 5. Completion RLE angiogram 6. L SALES REPRESENTATIVE PUBLIC UTILITIES angiogram 7. Mynx closure Past Medical History: [...] with 24/7 assistance and maximal services) Pager: [phone] NICHOLAS MORA, PT 08/12/2017 Physical Therapy Rehabilitation [...] sit/sit to supine -- Bed Mobility Goal, Marshall Level independent -- Bed Mobility Goal, Outcome Achieved -- goal ongoing Goal: Gait Training Goal Stand Alone Therapy Goal Outcome: Ongoing (Interventions Implemented as Appropriate) 08/11/17 1310 08/12/17 1510 Gait Training Goal Gait Training Goal, Date Established 08/11/17 -- Gait Training Goal, Time to Achieve 5 - 7 days -- Gait Training Goal, Marshall Level conditional independence -- Gait Training Goal, [...] days -- Transfer Training Goal, Activity Type lzy-oi-ozkve/letkr-qi-xez -- Transfer Train Goal, Marshall Level conditional independence -- Transfer Training Goal, [...] Operative Note Patient Name: Gregory Hoang : [id number] MR#: [id number] Case Date: 08/11/2017 Surgeon: Surgeon(s) and Role: [...] blue toe syndrome (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 Completion RLE angiogram 6. L SALES REPRESENTATIVE PUBLIC UTILITIES angiogram 7. Mynx closure He is very [...] Anticipated Discharge Disposition: inpatient rehabilitation facility Pager: [phone] LAWRENCE GONZALEZ, PT 08/11/2017 Physical Therapy Rehabilitation [...] to sit/sit to supine Bed Mobility Goal, Marshall Level independent Goal: Gait Training Goal Stand Alone Therapy Goal Outcome: Ongoing (Interventions Implemented as Appropriate) 08/11/17 1310 Gait Training Goal Gait Training Goal, Date Established 08/11/17 Gait Training Goal, Time to Achieve 5 - 7 days Gait Training Goal, Marshall Level conditional independence Gait Training Goal, Assist [...] 7 days Transfer Training Goal, Activity Type hdx-ol-uuqls/xuedl-sh-acq Transfer Train Goal, Marshall Level conditional independence Plan of David DelloAnnetta [...] call cabello within reach, Hourly rounding by RN/FUEL HOUSE ATTENDANT. Bed alarm / Chair alarm. ? Patient-specific [...] Care Planning: on file Kisha Hoang [facility] [phone] Current Coping/Education/Information Needs: pt and spouse state [...] Health/Prescription Coverage: Primary Insurance: MEDICARE Secondary Insurance: [employer] [place] Prescription Coverage: See above Preferred Pharmacy: [facility] Other: N/A Primary Care Provider: Lovely Vicente MD [phone] Patient/Caregiver Goals of Treatment: Patient plans to return home when medically ready Potential Needs for Transition of Care: Rehab/SNF: N/A Home Health: [facility]. DME: pt has a cane [...] of care planning. Kaitlin Saha RN Pager: [phone] Plan of Care - Melba Jaramillo RN [...] Overview Goal: Plan of Care Review 08/08/17 7044 Coping/Psychosocial Plan Of Care Reviewed With patient [...] call cabello within reach, Hourly rounding by RN/FUEL HOUSE ATTENDANT. Bed alarm / Chair alarm. Patient-specific fall prevention interventions for sensory deficits provided, if applicable: [X] Yes [facility]PG GOAL OUTCOME EVALUATION: Goal: Fall Prevention-Safe Patient Handling Outcome: Ongoing (Interventions Implemented as Appropriate) 08/06/17 1700 08/06/17199908/07/17 2264 Positioning Body Position -- up in chair [...] at bedside and MD TEAM Carrying pager [phone] contacted (via Radio page) and notified of [...] [facility] [address] [place], [place] [address] (Wo rk) 05/28/2022 Appointment Cardiology Zulma Dolan MD [facility] [address] [place] [address] (Wo rk) 05/28/2022 Laboratory Appointment Lab 05/28/2022 Office Visit Cardiology Zulma Dolan MD [facility] [place] [address] Liz Poole PA [facility] [place] [address] 06/10/2022 Office Visit Dermatology Laura Scherer MD [facility] [address] [facility] [place], [place] [address] (Wo rk) documented as of [...] Signature POC Glucose 160 65 - 199 [facility] mg/dL [facility] Comment: Supplemental ranges: <140 mg/dL before meals <180 mg/dL all other times of the day Specimen Anatomical Collection Method Collection Time Receive d Time (Source) Location / / Volume Laterality Blood specimen 08/16/2017 7:28 AM 018 7:28 (specimen) EST AM EST Yonathan Smith MD POINT OF CARE TEST ORDERABLE S Performing Organization Address City/State/[place] [address] (ABNORMAL) Differential, Automated (08/16/2017 5:08 AM EST) [facility] Method Time Signature Neutrophils % 73.9 % [facility] Neutr Abs (ANC) 5.37 1.70 - [facility] 6.10 [facility] x10(3)/[facility] LABORATORY Lymphocytes % 10.1 % [facility] Lymphocytes Abs 0.7 (L) 0.9 - 3.2 [facility] x10(3)/[facility] LABORATORY Monocytes % 10.1 % [facility] Monocyte Abs 0.7 0.3 - 0.9 [facility] x10(3)/[facility] LABORATORY Eosinophils % 5.1 % [facility] Eosinophils Abs 0.4 0.0 - 0.4 [facility] x10(3)/[facility] LABORATORY Basophils % 0.4 % [facility] Basophils Abs 0.0 0.0 - 0.1 [facility] x10(3)/[facility] LABORATORY Immature Gran % 0.40 % [facility] [...] Gran Abs 0.03 0.00 - 0.04 x10(3)/[facility] LABORATORY Specimen Anatomical Collection Method Collection Time Receive d Time (Source) Location / / Volume Laterality Blood specimen 08/16/2017 5:08 AM 018 5:20 (specimen) EST AM EST Resulting Agency Comment Spec In Lab Yonathan Smith MD HEMATOLOGY ORDERABLES Performing Organization Address City/State/[place] [address] (ABNORMAL) Hemogram (08/16/2017 5:08 AM EST) Analysis Performed At Patho logist Time Signature WBC 7.3 4.0 - 9.5 [facility] LABORATORY RBC 3.36 (L) 4.58 - BARBARA RYAN 5.54 [facility] x10(6)/[facility] LABORATORY Hemoglobin 9.7 (L) 13.7 - [facility] 16.5 gm/dL [facility] Hematocrit 30.3 (L) 40.5 - [facility] 48.5 % [facility] MCV 90.2 82.9 - [facility] 93.1 [facility] LABORATORY MCH 28.9 27.5 - [place] 32.1 pg [facility] LABORATORY MCHC 32.0 32.0 - [place] 35.7 gm/dL [facility] LABORATORY Platelets 282 145 - 357 [facility] x10(3)/[facility] LABORATORY RDWSD 53.9 (H) 36.0 - [facility] 45.0 [facility] LABORATORY RDWCV 16.5 (H) 11.4 - [facility] 13.8 % [facility] LABORATORY MPV 9.0 7.6 - 12.9 [facility] LABORATORY nRBC % Auto 0.0 % [facility] LABORATORY nRBC Abs Auto 0.000 0.000 - [facility] 0.000 [facility] x10(3)/[facility] LABORATORY Specimen Anatomical Collection Method Collection Time Receive d Time (Source) Location / / Volume Laterality Blood specimen 08/16/2017 5:08 AM 018 5:20 (specimen) EST AM EST Resulting Agency Comment Spec In Lab Yonathan Smith MD HEMATOLOGY ORDERABLES Performing Organization Address City/State/[place] [address] (ABNORMAL) Basic Metabolic Panel (non-fasting) (08/16/2017 5:08 AM EST) P athologist Signature Glucose Lvl 141 65 - 199 [facility] mg/dL [facility] LABORATORY Comment: Diabetes: >=200 mg/dL plus symp toms BUN 29 (H) 10 - 20 mg/dL [facility] LABORATORY Creatinine 1.25 0.80 - [...] 15 mmol/L [facility] LABORATORY Calcium 8.7 8.5 - 10.5 mg/dL [facility] LABORATORY Estimated GFR 57 (L) >=60 [facility] LABORATORY Comment: The reported eGFR should be multiplied b y 1.2 for patients. The MDRD is not an appropriate measure o f renal function for patients with body mass extremes or in patients with acute kidney failure. http://[employer]/DHnkdep http://[employer]/DHMCnkf Specimen Anatomical Collection Method Collection Time Receive d Time (Source) Location / / Volume Laterality Blood specimen 08/16/2017 5:08 AM 018 5:20 (specimen) EST AM EST Resulting Agency Comment Spec In Lab Yonathan Smith MD CHEMISTRY ORDERABLES Performing Organization Address City/State/[place] [address] (ABNORMAL) Prothrombin Time (08/16/2017 [...] Address City/[facility]/ZIP Code Phon e Number [address] POCT Glucose (08/16/2017 4:09 AM EST) athologist Signature POC Glucose 147 65 - 199 [facility] mg/dL [facility] LABORATORY Comment: Supplemental [...] Address City/[facility]/ZIP Code Phon e Number [address] POCT Glucose (08/15/2017 11:56 PM EST) athologist Signature POC Glucose 176 65 - [address] [facility] mg/dL [facility] LABORATORY Comment: Supplemental [...] Address City/State/ZIP Code [place] [address] POCT Glucose (08/15/2017 8:05 PM EST) athologist Signature POC Glucose 136 65 - [address] [facility] mg/dL [facility] LABORATORY Comment: Supplemental ranges: <140 mg/dL before meals <180 mg/dL all other times of the day Specimen Anatomical Collection Method Collection Time Receive d Time (Source) Location / / Volume Laterality Blood specimen 08/15/2017 8:05 PM 018 8:05 (specimen) EST PM EST Yonathan Smith MD POINT OF CARE TEST ORDERABLE S Performing Organization Address City/State/[place] [address] (ABNORMAL) POCT Glucose (08/15/2017 4:50 PM EST) athologist Signature POC Glucose 232 (H) 65 - 199 [facility] mg/dL [facility] LABORATORY Comment: Supplemental ranges: <140 mg/dL before meals <180 mg/dL all other times of the day Specimen Anatomical Collection Method Collection Time Receive d Time (Source) Location / / Volume Laterality Blood specimen 08/15/2017 4:50 PM 018 4:50 (specimen) EST PM EST Yonathan Smith MD POINT OF CARE TEST ORDERABLE S Performing Organization Address City/State/[place] [address] POCT Glucose (08/15/2017 12:04 PM EST) athologist Signature POC Glucose 135 65 - 199 [place] mg/dL [facility] LABORATORY Comment: Supplemental ranges: <140 mg/dL before meals <180 mg/dL all other times of the day Specimen Anatomical Collection Method Collection Time Receive d Time (Source) Location / / Volume Laterality Blood specimen 08/15/2017 12:04 8 (specimen) PM EST 12:04 PM EST Yonathan Smith MD POINT OF CARE TEST ORDERABLE S Performing Organization Address City/State/[place] [address] POCT Glucose (08/15/2017 7:36 AM EST) P athologist Signature POC Glucose 124 65 - 199 [facility] mg/dL [facility] LABORATORY Comment: Supplemental ranges: <140 mg/dL before meals <180 mg/dL all other times of the day Specimen Anatomical Collection Method Collection Time Receive d Time (Source) Location / / Volume Laterality Blood specimen 08/15/2017 7:36 AM 018 7:36 (specimen) EST AM EST Yonathan Smith MD POINT OF CARE TEST ORDERABLE S Performing Organization Address City/State/ZIP Code Phon e Number [place] [id number] [facility] LABORATORY Drive (ABNORMAL) Differential, Automated (08/15/2017 6:22 AM EST) Patholo gist Method Time Signature Neutrophils % 76.1 % [facility] LABORATORY Neutr Abs (ANC) 6.62 (H) 1.70 - [facility] 6.10 [facility] x10(3)/[facility] L LABORATORY Lymphocytes % 9.3 % [facility] LABORATORY Lymphocytes Abs 0.8 (L) 0.9 - 3.2 [facility] x10(3)/[facility] LABORATORY Monocytes % 9.4 % [facility] LABORATORY Monocyte Abs 0.8 0.3 - 0.9 [facility] x10(3)/[facility] LABORATORY Eosinophils % 4.0 % [facility] LABORATORY Eosinophils Abs 0.4 0.0 - 0.4 [facility] x10(3)/[facility] LABORATORY Basophils % 0.6 % [facility] LABORATORY Basophils Abs 0.0 0.0 - 0.1 [facility] x10(3)/[facility] LABORATORY Immature Gran % 0.60 % [...] Organization Address City/State/[place] [address] (ABNORMAL) Hemogram (08/15/2017 6:22 AM EST) Analysis Performed At Patho logist Time Signature WBC 8.7 4.0 - 9.5 [facility] x10(3)/[facility] LABORATORY RBC 3.21 (L) 4.58 - [place] 5.54 [facility] x10(6)/[facility] LABORATORY Hemoglobin 9.1 (L) 13.7 - [facility] 16.5 gm/dL [facility] LABORATORY Hematocrit 29.0 (L) 40.5 - [facility] 48.5 % [facility] LABORATORY MCV 90.3 82.9 - [facility] 93.1 [facility] LABORATORY MCH 28.3 27.5 - [facility] 32.1 pg [facility] LABORATORY MCHC 31.4 (L) 32.0 - [facility] 35.7 gm/dL [facility] LABORATORY Platelets 254 145 - 357 [facility] x10(3)/[facility] LABORATORY RDWSD 53.9 (H) 36.0 - [facility] 45.0 [facility] LABORATORY RDWCV 16.3 (H) 11.4 - [facility] 13.8 % [facility] LABORATORY MPV 8.8 7.6 - 12.9 [facility] nRBC % Auto 0.0 % [facility] LABORATORY nRBC Abs Auto 0.000 0.000 - [place] 0.000 [facility] x10(3)/[facility] LABORATORY Specimen Anatomical Collection Method Collection Time Receive d Time (Source) Location / / Volume Laterality Blood specimen 08/15/2017 6:22 AM 018 6:33 (specimen) EST AM EST Resulting Agency Comment Spec In Lab Yonathan Smith MD HEMATOLOGY ORDERABLES Performing Organization Address City/State/[place] [address] (ABNORMAL) Basic Metabolic Panel (non-fasting) (08/15/2017 6:22 AM EST) athologist Signature Glucose Lvl 118 65 - 199 [facility] mg/dL [facility] LABORATORY Comment: Diabetes: >=200 mg/dL plus symp toms BUN 27 (H) 10 - 20 mg/dL [facility] Estimated GFR >60 >=60 [facility] LABORATORY Comment: The reported eGFR should be multiplied b y 1.2 for patients. The MDRD is not an appropriate measure o f renal function for patients with body mass extremes or in patients with acute kidney failure. http://[employer]/DHnkdep http://[employer]/DHMCnkf Specimen Anatomical Collection Method Collection Time Receive d Time (Source) Location / / Volume Laterality Blood specimen 08/15/2017 6:22 AM 018 6:33 (specimen) EST AM EST Resulting Agency Comment Spec In Lab Yonathan Smith MD CHEMISTRY ORDERABLES Performing Organization Address City/State/[place] [address] (ABNORMAL) Prothrombin Time (08/15/2017 [...] Address City/[facility]/[place] [address] POCT Glucose (08/15/2017 4:33 AM EST) athologist Signature POC Glucose 164 65 - 199 [facility] mg/dL [facility] LABORATORY Comment: Supplemental ranges: <140 mg/dL before meals <180 mg/dL all other times of the day Specimen Anatomical Collection Method Collection Time Receive d Time (Source) Location / / Volume Laterality Blood specimen 08/15/2017 4:33 AM 018 4:33 (specimen) EST AM EST Yonathan Smith MD POINT OF CARE TEST ORDERABLE S Performing Organization Address City/State/[place] [address] POCT Glucose (08/15/2017 12:12 AM EST) athologist Signature POC Glucose 89 65 - 199 [facility] mg/dL [facility] LABORATORY Comment: Supplemental ranges: <140 mg/dL before meals <180 mg/dL all other times of the day Specimen Anatomical Collection Method Collection Time Receive d Time (Source) Location / / Volume Laterality Blood specimen 08/15/2017 12:12 8 (specimen) AM EST 12:12 AM EST Yonathan Smith MD POINT OF CARE TEST ORDERABLE S Performing Organization Address City/State/[place] [address] (ABNORMAL) POCT Glucose (08/14/2017 8:07 PM EST) athologist Signature POC Glucose 204 (H) 65 - 199 [place] mg/dL [facility] LABORATORY Comment: Supplemental ranges: <140 mg/dL before meals <180 mg/dL all other times of the day Specimen Anatomical Collection Method Collection Time Receive d Time (Source) Location / / Volume Laterality Blood specimen 08/14/2017 8:07 PM 018 8:07 (specimen) EST PM EST Yonathan Smith MD POINT OF CARE TEST ORDERABLE S Performing Organization Address City/State/[place] [address] POCT Glucose (08/14/2017 5:11 PM EST) athologist Signature POC Glucose 174 65 - 199 [place] mg/dL [facility] LABORATORY Comment: Supplemental ranges: <140 mg/dL before meals <180 mg/dL all other times of the day Specimen Anatomical Collection Method Collection Time Receive d Time (Source) Location / / Volume Laterality Blood specimen 08/14/2017 5:11 PM 018 5:11 (specimen) EST PM EST Yonathan Smith MD POINT OF CARE TEST ORDERABLE S Performing Organization Address City/State/[place] [address] POCT Glucose (08/14/2017 12:10 PM EST) athologist Signature POC Glucose 141 65 - 199 [facility] mg/dL [facility] LABORATORY Comment: Supplemental [...] Address City/State/ZIP Code Phon e Number [address] POCT Glucose (08/14/2017 8:07 AM EST) P athologist Signature POC Glucose 158 65 - 199 [facility] mg/dL [facility] LABORATORY Comment: Supplemental ranges: <140 mg/dL before meals <180 mg/dL all other times of the day Specimen Anatomical Collection Method Collection Time Receive d Time (Source) Location / / Volume Laterality Blood specimen 08/14/2017 8:07 AM 018 8:07 (specimen) EST AM EST Yonathan Smith MD POINT OF CARE TEST ORDERABLE S Performing Organization Address City/State/[place] [address] (ABNORMAL) Differential, Automated (08/14/2017 4:52 AM EST) Patholo gist Method Time Signature Neutrophils % 78.6 % [facility] LABORATORY Neutr Abs (ANC) 7.70 (H) 1.70 - [facility] 6.10 [facility] x10(3)/[facility] L LABORATORY Lymphocytes % 7.8 % [facility] LABORATORY Lymphocytes Abs 0.8 (L) 0.9 - 3.2 [facility] x10(3)/[facility] LABORATORY Monocytes % 8.8 % [facility] LABORATORY Monocyte Abs 0.9 0.3 - 0.9 [facility] x10(3)/[facility] LABORATORY Eosinophils % 4.0 % [facility] LABORATORY Eosinophils Abs 0.4 0.0 - 0.4 [facility] x10(3)/[facility] LABORATORY Basophils % 0.5 % [facility] LABORATORY Basophils Abs 0.0 0.0 - 0.1 [facility] x10(3)/[facility] LABORATORY Immature Gran % [...] Melisa Gran Abs 0.03 0.00 - 0.04 x10(3)/[facility] LABORATORY Specimen Anatomical Collection Method Collection Time Receive d Time (Source) Location / / Volume Laterality Blood specimen 08/14/2017 4:52 AM 018 5:08 (specimen) EST AM EST Resulting Agency Comment Spec In Lab Yonathan Smith MD HEMATOLOGY ORDERABLES Performing Organization Address City/State/[place] [address] (ABNORMAL) Hemogram (08/14/2017 4:52 AM EST) Analysis Performed At Patho logist Time Signature WBC 9.8 (H) 4.0 - 9.5 [facility] x10(3)/[facility] LABORATORY RBC 3.32 (L) 4.58 - [facility] 5.54 [facility] x10(6)/[facility] LABORATORY Hemoglobin 9.5 (L) 13.7 - [facility] 16.5 gm/dL [facility] LABORATORY Hematocrit 30.3 (L) 40.5 - [facility] 48.5 % [facility] LABORATORY MCV 91.3 82.9 - [facility] 93.1 [facility] LABORATORY MCH 28.6 27.5 - [place] 32.1 pg [facility] LABORATORY MCHC 31.4 (L) 32.0 - [facility] 35.7 gm/dL [facility] LABORATORY Platelets 263 145 - 357 [facility] x10(3)/[facility] LABORATORY RDWSD 54.8 (H) 36.0 - [place] 45.0 [facility] RDWCV 16.5 (H) 11.4 - [facility] 13.8 % [facility] LABORATORY MPV 9.1 7.6 - 12.9 [facility] LABORATORY nRBC % Auto 0.0 % [facility] LABORATORY nRBC Abs Auto 0.000 0.000 - [facility] 0.000 [facility] x10(3)/[facility] LABORATORY Specimen Anatomical Collection Method Collection Time Receive d Time (Source) Location / / Volume Laterality Blood specimen 08/14/2017 4:52 AM 018 5:08 (specimen) EST AM EST Resulting Agency Comment Spec In Lab Yonathan Smith MD HEMATOLOGY ORDERABLES Performing Organization Address City/State/[place] [address] (ABNORMAL) Prothrombin Time (08/14/2017 [...] Organization Address City/State/[place] [address] (ABNORMAL) Basic Metabolic Panel (non-fasting) (08/14/2017 4:52 AM EST) P athologist Signature Glucose Lvl 135 65 - 199 [facility] mg/dL [facility] LABORATORY Comment: Diabetes: >=200 mg/dL plus symp toms BUN 25 (H) 10 - 20 mg/dL [facility] LABORATORY Creatinine 1.36 0.80 - [...] HOSPITAL LABORATORY Estimated GFR 52 (L) >=60 [facility] LABORATORY Comment: The reported eGFR should be multiplied b y 1.2 for patients. The MDRD is not an appropriate measure o f renal function for patients with body mass extremes or in patients with acute kidney failure. http://[employer]est[employer]/DHnkdep http://[employer]/DHnkf Specimen Anatomical Collection Method Collection Time Receive d Time (Source) Location / / Volume Laterality Blood specimen 08/14/2017 4:52 AM 018 5:08 (specimen) EST AM EST Resulting Agency Comment Spec In Lab Yonathan Smith MD CHEMISTRY ORDERABLES Performing Organization Address City/State/[place] [address] POCT Glucose (08/14/2017 3:56 AM EST) P athologist Signature POC Glucose 135 65 - 199 [facility] mg/dL [facility] LABORATORY Comment: Supplemental ranges: <140 mg/dL before meals <180 mg/dL all other times of the day Specimen Anatomical Collection Method Collection Time Receive d Time (Source) Location / / Volume Laterality Blood specimen 08/14/2017 3:56 AM 018 3:56 (specimen) EST AM EST Yonathan Smith MD POINT OF CARE TEST ORDERABLE S Performing Organization Address City/State/[place] [address] POCT Glucose (08/13/2017 11:13 PM EST) athologist Signature POC Glucose 118 65 - 199 [place] [facility] mg/dL [facility] LABORATORY Comment: Supplemental [...] Address City/[facility]/[place] [address] (ABNORMAL) POCT Glucose (08/13/2017 8:08 PM EST) athologist Signature POC Glucose 204 (H) 65 - 199 [facility] mg/dL [facility] LABORATORY Comment: Supplemental ranges: <140 mg/dL before meals <180 mg/dL all other times of the day Specimen Anatomical Collection Method Collection Time Receive d Time (Source) Location / / Volume Laterality Blood specimen 08/13/2017 8:08 PM 018 8:08 (specimen) EST PM EST Yonathan Smith MD POINT OF CARE TEST ORDERABLE S Performing Organization Address City/State/[place] [address] POCT Glucose (08/13/2017 4:02 PM EST) athologist Signature POC Glucose 145 65 - [address] [facility] mg/dL [facility] LABORATORY Comment: Supplemental ranges: <140 mg/dL before meals <180 mg/dL all other times of the day Specimen Anatomical Collection Method Collection Time Receive d Time (Source) Location / / Volume Laterality Blood specimen 08/13/2017 4:02 PM 018 4:02 (specimen) EST PM EST Yonathan Smith MD POINT OF CARE TEST ORDERABLE S Performing Organization Address City/State/[place] [address] POCT Glucose (08/13/2017 11:31 AM EST) athologist Signature POC Glucose 179 65 - 199 [facility] mg/dL [facility] LABORATORY Comment: Supplemental [...] Address City/[facility]/[place] [address] (ABNORMAL) POCT Glucose (08/13/2017 10:16 AM EST) athologist Signature POC Glucose 211 (H) 65 - 199 [facility] mg/dL [facility] LABORATORY Comment: Supplemental [...] Address City/[facility]/[place] [address] JULIAN, legs, multiple levels (08/13/2017 7:42 AM EST) Component Value Ref Test Analysis Performed At Patholo gist Range Method Time Signature VB Text Department: Vascular Surgery Lab VASCUBASE Report Patient: [id number] (GREGORY HOANG) CPT: 50760 ICD10: I99.8 Referring Physician: YONATHAN SMITH ?? Indications: s/p R 1,2,3 toe amps with red left foot, need n ew baseline Diabetes mellitus: yes ICD10 Diagnosis Code: I99.8 Findings: Right ?Pressure (mm Hg) ?? JULIAN ??Waveform ?TBI ?? Brachial Artery ?138 ? Dorsalis Pedis (Ankle) Arter y ?132 ? 0.94 ??Mobile- Biphasic ? Posterior Tibial (Ankle) Art anila ??154 ? 1.10 ??Mobile-Biphasic ? Fourth Toe ? 67 ? 0.48 [...] 156 65 - 199 [place] mg/dL [facility] LABORATORY Comment: Supplemental [...] City/State/ZIP Code [place] [address] (ABNORMAL) Differential, Automated (08/13/2017 5:33 AM EST) [facility] Method Time Signature Neutrophils % 77.8 % [facility] LABORATORY Neutr Abs (ANC) 7.83 (H) 1.70 - [facility] 6.10 [facility] x10(3)/[facility] L LABORATORY Lymphocytes % 8.4 % [facility] LABORATORY Lymphocytes Abs 0.8 (L) 0.9 - 3.2 [facility] x10(3)/[facility] LABORATORY Monocytes % 8.3 % [facility] LABORATORY Monocyte Abs 0.8 0.3 - 0.9 [facility] x10(3)/[facility] LABORATORY Eosinophils % 4.6 % [facility] LABORATORY Eosinophils Abs 0.5 (H) 0.0 - 0.4 [facility] x10(3)/[facility] LABORATORY Basophils % 0.5 % [facility] LABORATORY Basophils Abs 0.0 0.0 - 0.1 [facility] x10(3)/[facility] LABORATORY Immature Gran % [...] Melisa Gran Abs 0.04 0.00 - 0.04 x10(3)/[facility] LABORATORY Specimen Anatomical Collection Method Collection Time Receive d Time (Source) Location / / Volume Laterality Blood specimen 08/13/2017 5:33 AM 018 6:04 (specimen) EST AM EST Resulting Agency Comment Spec In Lab Yonathan Smith MD HEMATOLOGY ORDERABLES Performing Organization Address City/State/[place] [address] (ABNORMAL) Hemogram (08/13/2017 5:33 AM EST) Analysis Performed At Patho logist Time Signature WBC 10.1 (H) 4.0 - 9.5 [facility](3[facility] LABORATORY RBC 3.21 (L) 4.58 - [place] 5.54 [facility] x10(6)/[facility] LABORATORY Hemoglobin 9.2 (L) 13.7 - [facility] 16.5 gm/dL [facility] LABORATORY Hematocrit 29.6 (L) 40.5 - [facility] 48.5 % [facility] LABORATORY MCV 92.2 82.9 - [facility] 93.1 [facility] LABORATORY MCH 28.7 27.5 - [place] 32.1 pg [facility] LABORATORY MCHC 31.1 (L) 32.0 - [facility] 35.7 gm/dL [facility] LABORATORY Platelets 263 145 - 357 [facility] x10(3)/[facility] LABORATORY RDWSD 54.8 (H) 36.0 - [facility] 45.0 [facility] LABORATORY RDWCV 16.4 (H) 11.4 - [facility] 13.8 % [facility] LABORATORY MPV 9.2 7.6 - 12.9 [facility] LABORATORY nRBC % Auto 0.0 % [facility] LABORATORY nRBC Abs Auto 0.000 0.000 - [facility] 0.000 [facility] x10(3)/[facility] LABORATORY Specimen Anatomical Collection Method Collection Time Receive d Time (Source) Location / / Volume Laterality Blood specimen 08/13/2017 5:33 AM 018 6:04 (specimen) EST AM EST Resulting Agency Comment Spec In Lab Yonathan Smith MD HEMATOLOGY ORDERABLES Performing Organization Address City/State/ZIP Code Phon e Number [place] [id number]OS[address] LAB[address]ORY [address] (ABNORMAL) Prothrombin Time (08/13/2017 [...] Organization Address City/State/[place] [address] (ABNORMAL) Basic Metabolic Panel (non-fasting) (08/13/2017 5:33 AM EST) athologist Signature Glucose Lvl 126 65 - 199 [facility] mg/dL [facility] LABORATORY Comment: Diabetes: >=200 mg/dL plus symp toms BUN 18 10 - 20 mg/dL [facility] LABORATORY Creatinine 1.16 0.80 - [...] 15 mmol/L [facility] LABORATORY Calcium 7.9 (L) 8.5 - 10.5 mg/dL [facility] LABORATORY Estimated GFR >60 >=60 [place] [facility] [employer] [facility]ORY Comment: The reported eGFR should be multiplied b y 1.2 for patients. The MDRD is not an appropriate measure o f renal function for patients with body mass extremes or in patients with acute kidney failure. http://[employer]/DHnkdep http://Consc[employer]/DHMCnkf Specimen Anatomical Collection Method Collection Time Receive d Time (Source) Location / / Volume Laterality Blood specimen 08/13/2017 5:33 AM 018 6:04 (specimen) EST AM EST Resulting Agency Comment Spec In Lab Yonathan Smith MD CHEMISTRY ORDERABLES Performing Organization Address City/[facility] Phon e Number [address] POCT Glucose (08/13/2017 4:29 AM EST) athologist Signature POC Glucose 111 65 - 199 [facility] mg[facility]dL [facility]OR[facility] Comment: Supplemental [...] Address City/[facility]/ZIP Code Phon e Number [address] POCT Glucose (08/12/2017 11:28 PM EST) athologist Signature POC Glucose 164 65 - 199 [facility] mg/dL [facility] Comment: Supplemental [...] Address City/[facility]/[place] [address] (ABNORMAL) POCT Glucose (08/12/2017 7:40 PM EST) athologist Signature POC Glucose 209 (H) 65 - [address] [facility] mg/dL [facility] LABOR[facility] Comment: Supplemental [...] Address City/State/ZIP Code Phon e Number [address] POCT Glucose (08/12/2017 4:24 PM EST) athologist Signature POC Glucose 161 65 - [address] [facility] mg/dL [facility] Comment: Supplemental ranges: <140 mg/dL before meals <180 mg/dL all other times of the day Specimen Anatomical Collection Method Collection Time Receive d Time (Source) Location / / Volume Laterality Blood specimen 08/12/2017 4:24 PM 018 4:24 (specimen) EST PM EST Yonathan Smith MD POINT OF CARE TEST ORDERABLE S Performing Organization Address City/State/[place] [address] POCT Glucose (08/12/2017 12:00 PM EST) athologist Signature POC Glucose 167 65 - 199 [place] mg/dL [facility] Comment: Supplemental ranges: <140 mg/dL before meals <180 mg/dL all other times of the day Specimen Anatomical Collection Method Collection Time Receive d Time (Source) Location / / Volume Laterality Blood specimen 08/12/2017 12:00 8 (specimen) PM EST 12:00 PM EST Yonathan Smith MD POINT OF CARE TEST ORDERABLE S Performing Organization Address City/State/[place] [address] POCT Glucose (08/12/2017 7:25 AM EST) P athologist Signature POC Glucose 152 65 - 199 [facility] mg/dL [facility] Comment: Supplemental ranges: <140 mg/dL before meals <180 mg/dL all other times of the day Specimen Anatomical Collection Method Collection Time Receive d Time (Source) Location / / Volume Laterality Blood specimen 08/12/2017 7:25 AM 018 7:25 (specimen) EST AM EST Yonathan Smith MD POINT OF CARE TEST ORDERABLE S Performing Organization Address City/State/[place] [address] (ABNORMAL) Differential, Automated (08/12/2017 6:29 AM EST) Patholo gist Method Time Signature Neutrophils % 78.7 % [facility] LABORATORY Neutr Abs (ANC) 7.94 (H) 1.70 - [facility] 6.10 [facility] x10(3)/[facility] LABORATORY Lymphocytes % 8.8 % [facility] LABORATORY Lymphocytes Abs 0.9 0.9 - 3.2 [facility] x10(3)/[facility] LABORATORY Monocytes % 7.8 % [facility] Monocyte Abs 0.8 0.3 - 0.9 [facility] x10(3)/[facility] LABORATORY Eosinophils % 3.9 % [facility] Eosinophils Abs 0.4 0.0 - 0.4 [facility] x10(3)/[facility] LABORATORY Basophils % 0.3 % [facility] LABOR[facility] Basophils Abs 0.0 0.0 - 0.1 [facility] x10(3)/[facility] LABORATORY Immature Gran % 0.50 % [facility] [...] Organization Address City/State/[place] [address] (ABNORMAL) Hemogram (08/12/2017 6:29 AM EST) Analysis Performed At Patho logist Time Signature WBC 10.1 (H) 4.0 - 9.5 [facility] x[facility](3[facility] LABORATORY RBC 3.02 (L) 4.58 - [facility] 5.54 [facility] x10(6)/[facility] LABORATORY Hemoglobin 8.7 (L) 13.7 - [facility] 16.5 gm/dL [facility]ORY Hematocrit 28.1 (L) 40.5 - [facility] 48.5 % [facility]ORY MCV 93.0 82.9 - [facility] 93.1 [facility] LABORATORY MCH 28.8 27.5 - [facility] 32.1 pg [facility] MCHC 31.0 (L) 32.0 - [facility] 35.7 gm/dL [facility] Platelets 223 145 - 357 [facility] x10(3)/[facility] LABORATORY RDWSD 56.1 (H) 36.0 - [facility] 45.0 [facility] LABORATORY RDWCV 16.4 (H) 11.4 - [facility] 13.8 % [facility] LABORATORY MPV 9.0 7.6 - 12.9 [facility] LABORATORY nRBC % Auto 0.0 % [facility] LABORATORY nRBC Abs Auto 0.000 0.000 - [facility] 0.000 [facility] x10(3)/[facility] LABORATORY Specimen Anatomical Collection Method Collection Time Receive d Time (Source) Location / / Volume Laterality Blood specimen 08/12/2017 6:29 AM 018 6:38 (specimen) EST AM EST Resulting Agency Comment Spec In Lab Yonathan Smith MD HEMATOLOGY ORDERABLES Performing Organization Address City/[facility]/[place] [address] (ABNORMAL) Prothrombin Time (08/12/2017 [...] Organization Address City/State/[place] [address] (ABNORMAL) Basic Metabolic Panel (non-fasting) (08/12/2017 6:29 AM EST) athologist Signature Glucose Lvl 151 65 - 199 [facility] mg/dL [facility] Comment: Diabetes: >=200 mg/dL plus symp toms BUN 18 10 - 20 mg/dL [facility] LABORATORY Creatinine 1.11 0.80 - [...] 15 mmol/L [facility] LABORATORY Calcium 7.9 (L) 8.5 - 10.5 mg/dL [facility] LABORATORY Estimated GFR >60 >=60 [facility] LABORATORY Comment: The reported eGFR should be multiplied b y 1.2 for patients. The MDRD is not an appropriate measure o f renal function for patients with body mass extremes or in patients with acute kidney failure. http://Conscious Box/DHnkdep http://Conscious Box/DHMCnkf Specimen Anatomical Collection Method Collection Time Receive d Time (Source) Location / / Volume Laterality Blood specimen 08/12/2017 6:29 AM 018 6:38 (specimen) EST AM EST Resulting Agency Comment Spec In Lab Yonathan Smith MD CHEMISTRY ORDERABLES Performing Organization Address City/[facility]/ZIP Code Phon e Number [address] POCT Glucose (08/12/2017 4:08 AM EST) athologist Signature POC Glucose 181 65 - 199 [facility]dL [facility] Comment: Supplemental ranges: <140 mg/dL before meals <180 mg/dL all other times of the day Specimen Anatomical Collection Method Collection Time Receive d Time (Source) Location / / Volume Laterality Blood specimen 08/12/2017 4:08 AM 018 4:08 (specimen) EST AM EST Ynoathan Smith MD POINT OF CARE TEST ORDERABLE S Performing Organization Address City/[facility]/[place] [address] (ABNORMAL) POCT Glucose (08/12/2017 12:17 AM EST) athologist Signature POC Glucose 221 (H) 65 - 199 [facility] mg/dL [facility] Comment: Supplemental ranges: <140 mg/dL before meals <180 mg/dL all other times of the day Specimen Anatomical Collection Method Collection Time Receive d Time (Source) Location / / Volume Laterality Blood specimen 08/12/2017 12:17 8 (specimen) AM EST 12:17 AM EST Yonathan Smith MD POINT OF CARE TEST ORDERABLE S Performing Organization Address City/State/[place] [address] (ABNORMAL) POCT Glucose (08/11/2017 8:52 PM EST) athologist Signature POC Glucose 221 (H) 65 - 199 [place] mg/dL [facility] Comment: Supplemental [...] Address City/[facility]/[place] [address] POCT Glucose (08/11/2017 5:59 PM EST) athologist Signature POC Glucose 169 65 - 199 [facility] mg/dL [facility] Comment: Supplemental ranges: <140 mg/dL before meals <180 mg/dL all other times of the day Specimen Anatomical Collection Method Collection Time Receive d Time (Source) Location / / Volume Laterality Blood specimen 08/11/2017 5:59 PM 018 5:59 (specimen) EST PM EST Yonathan Smith MD POINT OF CARE TEST ORDERABLE S Performing Organization Address City/State/[place] [address] (ABNORMAL) POCT Glucose (08/11/2017 4:08 PM EST) athologist Signature POC Glucose 240 (H) 65 - 199 [facility] mg/dL [facility] Comment: Supplemental [...] Address City/[facility]/ZIP Code Phon e Number [address] POCT Glucose (08/11/2017 12:04 PM EST) athologist Signature POC Glucose 182 65 - 199 [facility]/dL [facility] Comment: Supplemental [...] Address City/[facility]/ZIP Code Phon e Number [address] POCT Glucose (08/11/2017 7:31 AM EST) athologist Signature POC Glucose 156 65 - 199 [facility] Comment: Supplemental [...] Address City/[facility]/ZIP Code Phon e Number [address] (ABNORMAL) Differential, Automated (08/11/2017 6:16 AM EST) [facility] Method Time Signature Neutrophils % 83.7 % [facility] LABORATORY Neutr Abs (ANC) 10.76 (H) 1.70 - [facility] 6.10 [facility] x10(3)/[facility] L LABORATORY Lymphocytes % 6.0 % [facility] LABORATORY Lymphocytes Abs 0.8 (L) 0.9 - 3.2 [facility] x10(3)/[facility] LABORATORY Monocytes % 7.5 % [facility] LABORATORY Monocyte Abs 1.0 (H) 0.3 - 0.9 [facility] x10(3)/[facility] LABORATORY Eosinophils % 2.0 % [facility] LABORATORY Eosinophils Abs 0.3 0.0 - 0.4 [facility] x10(3)/[facility] LABORATORY Basophils % 0.3 % [facility] LABORATORY Basophils Abs 0.0 0.0 - 0.1 [facility] x10(3)/[facility] LABORATORY Immature Gran % 0.50 % [facility] [...] Organization Address City/State/[place] [address] (ABNORMAL) Hemogram (08/11/2017 6:16 AM EST) Analysis Performed At Patho logist Time Signature WBC 12.9 (H) 4.0 - 9.5 [facility] x10(3)/[facility] LABORATORY RBC 3.28 (L) 4.58 - [facility] 5.54 [facility] x10(6)/[facility] LABORATORY Hemoglobin 9.5 (L) 13.7 - [facility] 16.5 gm/dL [facility] LABORATORY Hematocrit 29.8 (L) 40.5 - [facility] 48.5 % [facility] LABORATORY MCV 90.9 82.9 - [facility] 93.1 [facility] LABORATORY MCH 29.0 27.5 - [facility] 32.1 pg [facility] LABORATORY MCHC 31.9 (L) 32.0 - [facility] 35.7 gm/dL [facility] LABORATORY Platelets 236 145 - 357 [facility] x10(3)/[facility] LABORATORY RDWSD 53.5 (H) 36.0 - [facility] 45.0 [facility] LABORATORY RDWCV 16.3 (H) 11.4 - [facility] 13.8 % [facility] LABORATORY MPV 8.8 7.6 - 12.9 [facility] LABORATORY nRBC % Auto 0.0 % [facility] LABORATORY nRBC Abs Auto 0.000 0.000 - [place] 0.000 [facility] x10(3)/[facility] LABORATORY Specimen Anatomical Collection Method Collection Time Receive d Time (Source) Location / / Volume Laterality Blood specimen 08/11/2017 6:16 AM 018 6:24 (specimen) EST AM EST Resulting Agency Comment Spec In Lab Yonathan Smith MD HEMATOLOGY ORDERABLES Performing Organization Address City/State/[place] [address] (ABNORMAL) Prothrombin Time (08/11/2017 [...] Organization Address City/State/[place] [address] Basic Metabolic Panel (non-fasting) (08/11/2017 6:16 AM EST) athologist Signature Glucose Lvl 139 65 - 199 [facility] mg/dL [facility] Comment: Diabetes: >=200 mg/dL plus symp toms BUN 12 10 - 20 mg/dL [facility] LABORATORY Creatinine 0.91 0.80 - [...] [facility] Estimated GFR >60 >=60 [facility] LABORATORY Comment: The reported eGFR should be multiplied b y 1.2 for patients. The MDRD is not an appropriate measure o f renal function for patients with body mass extremes or in patients with acute kidney failure. http://[employer]/DHnkdep http://Conscious Box/DHMCnkf Specimen Anatomical Collection Method Collection Time Receive d Time (Source) Location / / Volume Laterality Blood specimen 08/11/2017 6:16 AM 018 6:24 (specimen) EST AM EST Resulting Agency Comment Spec In Lab Yonathan Smith MD CHEMISTRY ORDERABLES Performing Organization Address City/State/ZIP Code Phon e Number [address] POCT Glucose (08/11/2017 4:07 AM EST) athologist Signature POC Glucose 162 65 - 199 [facility] mg/dL [facility] LABORATORY Comment: Supplemental [...] Address City/[facility]/ZIP Code Phon e Number [address] POCT Glucose (08/10/2017 11:59 PM EST) athologist Signature POC Glucose 166 65 - 199 [place] mg/dL [facility] LABORATORY Comment: Supplemental [...] Address City/State/ZIP Code Phon e Number [address] POCT Glucose (08/10/2017 8:12 PM EST) athologist Signature POC Glucose 156 65 - 199 [place] mg/dL [facility]ORY Comment: Supplemental ranges: <140 mg/dL before meals <180 mg/dL all other times of the day Specimen Anatomical Collection Method Collection Time Receive d Time (Source) Location / / Volume Laterality Blood specimen 08/10/2017 8:12 PM 018 8:12 (specimen) EST PM EST Yonathan Smith MD POINT OF CARE TEST ORDERABLE S Performing Organization Address City/State/[place] [address] (ABNORMAL) POCT Glucose (08/10/2017 4:42 PM EST) P athologist Signature POC Glucose 211 (H) 65 - 199 [facility]/dL [facility] Comment: Supplemental [...] Address City/State/ZIP Code Phon e Number [address] (ABNORMAL) Differential, Automated (08/10/2017 2:30 PM EST) Patholo gist Method Time Signature Neutrophils % 87.6 % [facility] LABORATORY Neutr Abs (ANC) 9.90 (H) 1.70 - [facility] 6.10 [facility] x10(3)/[facility] L LABORATORY Lymphocytes % 4.3 % [facility] LABORATORY Lymphocytes Abs 0.5 (L) 0.9 - 3.2 [facility] x10(3)/[facility] LABORATORY Monocytes % 6.0 % [facility] LABORATORY Monocyte Abs 0.7 0.3 - 0.9 [facility] x10(3)/[facility] LABORATORY Eosinophils % 1.1 % [facility] LABORATORY Eosinophils Abs 0.1 0.0 - 0.4 [facility] x10(3)/[facility] LABORATORY Basophils % 0.4 % [facility] LABORATORY Basophils Abs 0.0 0.0 - 0.1 [facility] x10(3)/[facility] LABORATORY Immature Gran % 0.60 % [...] Organization Address City/State/[place] [address] (ABNORMAL) Hemogram (08/10/2017 2:30 PM EST) Analysis Performed At Patho logist Time Signature WBC 11.3 (H) 4.0 - 9.5 [facility] x10(3)/[facility] LABORATORY RBC 3.13 (L) 4.58 - [facility] 5.54 [facility] x10(6)/[facility] LABORATORY Hemoglobin 8.9 (L) 13.7 - [facility] 16.5 gm/dL [facility] LABORATORY Hematocrit 28.4 (L) 40.5 - [facility] 48.5 % [facility]ATORY MCV 90.7 82.9 - [facility] 93.1 [facility] LABORATORY MCH 28.4 27.5 - [facility] 32.1 pg [facility] LABORATORY MCHC 31.3 (L) 32.0 - [facility] 35.7 gm/dL [facility]ORATORY Platelets 213 145 - 357 [facility] x10(3)/[facility] LABORATORY RDWSD 53.7 (H) 36.0 - [facility] 45.0 [facility] LABORATORY RDWCV 16.4 (H) 11.4 - [facility] 13.8 % [facility] LABORATORY MPV 8.9 7.6 - 12.9 [facility] LABORATORY nRBC % Auto 0.0 % [facility] LABORATORY nRBC Abs Auto 0.000 0.000 - [facility] 0.000 [facility] x10(3)/[facility] LABORATORY Specimen Anatomical Collection Method Collection Time Receive d Time (Source) Location / / Volume Laterality Blood specimen 08/10/2017 2:30 PM 018 2:48 (specimen) EST PM EST Resulting Agency Comment Spec In Lab Yonathan Smith MD HEMATOLOGY ORDERABLES Performing Organization Address City/[facility]/[place] [address] (ABNORMAL) POCT Glucose (08/10/2017 1:50 PM EST) athologist Signature POC Glucose 243 (H) 65 - 199 [facility] mg/dL [facility] Comment: Supplemental [...] Address City/[facility]/[place] [address] POCT Glucose (08/10/2017 11:21 AM EST) athologist Signature POC Glucose 156 65 - 199 [facility] mg/dL [facility] Comment: Supplemental [...] Address City/[facility]/ZIP Code Phon e Number [address] (ABNORMAL) Differential, Automated (08/10/2017 10:28 AM EST) [facility] Method Time Signature Neutrophils % 85.3 % [facility] LABORATORY Neutr Abs (ANC) 9.43 (H) 1.70 - [facility] 6.10 [facility] x10(3)/[facility] L LABORATORY Lymphocytes % 5.5 % [facility] LABORATORY Lymphocytes Abs 0.6 (L) 0.9 - 3.2 [facility] x10(3)/[facility] LABORATORY Monocytes % 5.9 % [facility] LABORATORY Monocyte Abs 0.6 0.3 - 0.9 [facility] x10(3)/[facility] LABORATORY Eosinophils % 2.1 % [facility] LABORATORY Eosinophils Abs 0.2 0.0 - 0.4 [facility] x10(3)/[facility] LABORATORY Basophils % 0.4 % [facility] LABORATORY Basophils Abs 0.0 0.0 - 0.1 [facility] x10(3)/[facility] LABORATORY Immature Gran % 0.80 % BAR[facility] [...] Organization Address City/State/[place] [address] (ABNORMAL) Hemogram (08/10/2017 10:28 AM EST) Analysis Performed At Patho logist Time Signature WBC 11.0 (H) 4.0 - 9.5 [facility] x10(3)/[facility] LABORATORY RBC 3.02 (L) 4.58 - [facility] 5.54 [facility] x10(6)/[facility] LABORATORY Hemoglobin 8.8 (L) 13.7 - [facility] 16.5 gm/dL [facility] LABORATORY Hematocrit 28.1 (L) 40.5 - [facility] 48.5 % [facility] LABORATORY MCV 93.0 82.9 - [facility] 93.1 [facility] LABORATORY MCH 29.1 27.5 - [facility] 32.1 pg [facility] LABORATORY MCHC 31.3 (L) 32.0 - [facility] 35.7 gm/dL [facility] LABORATORY Platelets 207 145 - 357 [place] x10(3)/[facility] LABORATORY RDWSD 55.3 (H) 36.0 - [facility] 45.0 [facility] LABORATORY RDWCV 16.4 (H) 11.4 - [facility] 13.8 % [facility] LABORATORY MPV 9.0 7.6 - 12.9 [facility] LABORATORY nRBC % Auto 0.0 % [facility]OR[facility]ORY nRBC Abs Auto 0.000 0.000 - [facility] 0.000 [facility] x10(3)/[facility] LABORATORY Specimen Anatomical Collection Method Collection Time Receive d Time (Source) Location / / Volume Laterality Blood specimen 08/10/2017 10:28 8 (specimen) AM EST 10:35 AM EST Resulting Agency Comment Spec In Lab Yonathan Smith MD HEMATOLOGY ORDERABLES Performing Organization Address City/State/[place] [address] VS Angiogram/intervention (vascular) (08/10/2017 [...] 2.5x80 5. Completion RLE angiogram 6. L [employer] angiogram 7. 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 - L [employer] angriogram demonstrated: High fe moral bifurcation over the proximal half of the femoral head. L [employer] access in the distal L [employer]. - Closure device: Mynx Technical Procedure: ?The [...] for a 45cm 5F Destination. V18 and [place] a nd QuickCross catheters were used to [...] bifurcation. Access appeared in the distal R [employer]. Closure and sheath removal was performed with [...] 2.5x80 5. Completion RLE angiogram 6. L [employer] angiogram 7. 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 - L [employer] angriogram demonstrated: High fe moral bifurcation over the proximal half of the femoral head. L [employer] access in the distal L [employer]. - Closure device: Mynx Technical Procedure: The [...] for a 45cm 5F Destination. V18 and [place] a nd QuickCross catheters were used to [...] bifurcation. Access appeared in the distal R [employer]. Closure and sheath removal was performed with [...] (ABNORMAL) Differential, Automated (08/10/2017 5:50 AM EST) [facility] Method Time Signature Neutrophils % 80.1 % [facility] LABORATORY Neutr Abs (ANC) 9.01 (H) 1.70 - [facility] 6.10 [facility] x10(3)/[facility] L LABORATORY Lymphocytes % 8.8 % [facility] LABORATORY Lymphocytes Abs 1.0 0.9 - 3.2 [facility] x10(3)/[facility] LABORATORY Monocytes % 8.3 % [facility] Monocyte Abs 0.9 0.3 - 0.9 [facility] x10(3)/[facility] LABORATORY Eosinophils % 2.0 % [facility] Eosinophils Abs 0.2 0.0 - 0.4 [facility] x10(3)/[facility] LABORATORY Basophils % 0.4 % [facility] Basophils Abs 0.0 0.0 - 0.1 [facility] x10(3)/[facility] LABORATORY Immature Gran % [...] Organization Address City/State/[place] [address] (ABNORMAL) Hemogram (08/10/2017 5:50 AM EST) Analysis Performed At Patho logist Time Signature WBC 11.3 (H) 4.0 - 9.5 [facility] x10(3)/[facility] LABORATORY RBC 3.15 (L) 4.58 - [facility] 5.54 [facility] x10(6)/[facility] LABORATORY Hemoglobin 8.9 (L) 13.7 - [facility] 16.5 gm/dL [facility] Hematocrit 29.0 (L) 40.5 - [facility] 48.5 % [facility] MCV 92.1 82.9 - [facility] 93.1 [facility] LABORATORY MCH 28.3 27.5 - [facility] 32.1 pg [facility] MCHC 30.7 (L) 32.0 - [facility]AN 35.7 gm/dL [facility] Platelets 231 145 - 357 [facility] x10(3)/[facility] LABORATORY RDWSD 53.9 (H) 36.0 - [facility] 45.0 [facility] LABORATORY RDWCV 16.2 (H) 11.4 - [facility] 13.8 % [facility] MPV 8.7 7.6 - 12.9 [facility] LABORATORY nRBC % Auto 0.0 % [facility] nRBC Abs Auto 0.000 0.000 - [facility] 0.000 [facility] x10(3)/[facility] LABORATORY Specimen Anatomical Collection Method Collection Time Receive d Time (Source) Location / / Volume Laterality Blood specimen 08/10/2017 5:50 AM 018 5:59 (specimen) EST AM EST Resulting Agency Comment Spec In Lab Yonathan Smith MD HEMATOLOGY ORDERABLES Performing Organization Address City/State/[place] [address] (ABNORMAL) Basic Metabolic Panel (non-fasting) (08/10/2017 5:50 AM EST) P athologist Signature Glucose Lvl 135 65 - 199 [facility] mg/dL [facility] Comment: Diabetes: >=200 mg/dL plus symp toms BUN 17 10 - 20 mg/dL [facility] Creatinine 1.05 0.80 - [facility] Estimated GFR >60 >=60 [facility] Comment: The reported eGFR should be multiplied b y 1.2 for patients. The MDRD is not an appropriate measure o f renal function for patients with body mass extremes or in patients with acute kidney failure. http://[employer]/DHnkdep http://[employer]/DHMCnkf Specimen Anatomical Collection Method Collection Time Receive d Time (Source) Location / / Volume Laterality Blood specimen 08/10/2017 5:50 AM 018 5:59 (specimen) EST AM EST Resulting Agency Comment Spec In Lab Yonathan Smith MD CHEMISTRY ORDERABLES Performing Organization Address City/[facility] [place] [address] (ABNORMAL) Prothrombin Time (08/10/2017 [...] MD HEMATOLOGY ORDERABLES Performing Organization Address City/[facility] [place] [address] (ABNORMAL) POCT Glucose (08/10/2017 4:01 AM EST) athologist Signature POC Glucose 206 (H) 65 - 199 [facility] mg/dL [facility] Comment: Supplemental ranges: <140 mg/dL before meals <180 mg/dL all other times of the day Specimen Anatomical Collection Method Collection Time Receive d Time (Source) Location / / Volume Laterality Blood specimen 08/10/2017 4:01 AM 018 4:01 (specimen) EST AM EST Yonathan Smith MD POINT OF CARE TEST ORDERABLE S Performing Organization Address City/State/[place] [address] POCT Glucose (08/10/2017 2:01 AM EST) athologist Signature POC Glucose 188 65 - 199 [facility] mg/dL [facility] Comment: Supplemental [...] Address City/[facility]/[place] [address] (ABNORMAL) POCT Glucose (08/09/2017 11:42 PM EST) athologist Signature POC Glucose 283 (H) 65 - 199 [facility] mg/dL [facility] Comment: Supplemental ranges: <140 mg/dL before meals <180 mg/dL all other times of the day Specimen Anatomical Collection Method Collection Time Receive d Time (Source) Location / / Volume Laterality Blood specimen 08/09/2017 11:42 8 (specimen) PM EST 11:42 PM EST Yonathan Smith MD POINT OF CARE TEST ORDERABLE S Performing Organization Address City/State/[place] [address] POCT Glucose (08/09/2017 8:55 PM EST) athologist Signature POC Glucose 182 65 - 199 [facility] mg/dL [facility] Comment: Supplemental [...] Address City/[facility]/[place] [address] (ABNORMAL) APTT (08/09/2017 6:42 [...] Smiht MD HEMATOLOGY ORDERABLES Performing Organization Address City/[facility]/[place] [address] POCT Glucose (08/09/2017 4:41 PM EST) athologist Signature POC Glucose 195 65 - 199 [facility] mg/dL [facility] Comment: Supplemental [...] Address City/[facility]/[place] [address] POCT Glucose (08/09/2017 12:29 PM EST) athologist Signature POC Glucose 140 65 - 199 [facility] mg/dL [facility] Comment: Supplemental [...] Address City/[facility]/ZIP Code Phon e Number [address] POCT Glucose (08/09/2017 9:59 AM EST) P athologist Signature POC Glucose 135 65 - 199 [facility] mg/dL [facility] Comment: Supplemental [...] Address City/[facility]/ZIP Code Phon e Number [address] Specimen to Pathology (08/09/2017 [...] PATHOLOGY/CYTOLOGY ORDERABLE S Performing Organization Address City/[facility]/[place] [address] Surgical Pathology Report (08/09/2017 8:40 AM EST) Component Value Ref Test Analysis Performed At Patholo gist Range Method Time Signature Surgical [id number] ? Location: [facility]; [facility]; A [facility] Report The signing pathologist has (i) [...] Henrique Flower Verified: ??08/13/2017 ?Pathologist Performed at: ??-[facility] Dept. of Pathology, [place], [place] CLINICAL INFORMATION Specimen Submitted: A - [...] Organization Address City/State/[place] [address] [facility] [address] Anaerobic Culture (08/09/2017 8:30 AM EST) [facility] STEERads Method Time Signature Anaerobic No anaerobic [facility] Culture organisms [facility] LABORATORY Specimen Anatomical Collection Method [...] Organization Address City/State/[place] [address] (ABNORMAL) Abscess/Wound Aspirate Culture (08/09/2017 8:30 AM EST) [facility] Method Time Signature Abscess/Wound Moderate mixed [facility] Aspirate bacterial [place] Culture morphotypes [facility] normal LABORATORY cutaneous leroy (A) Gram Stain Rare White Blood Cells [facility] Few Gram Positive Cocci in pairs [place] () [facility] Organism Gram Positive [facility] Cocci in pairs [place] () [facility] Specimen Anatomical Collection [...] GENERAL ORDER ROBSON Performing Organization Address City/[facility]/ZIP Code Phon e Number [place] [id number]OS[address] POCT Glucose (08/09/2017 4:28 AM EST) P athologist Signature POC Glucose 128 65 - 199 [facility] Comment: Supplemental [...] Address City/State/ZIP Code Phon e Number [address] ABORH Recheck Status (08/09/2017 1:10 AM EST) [facility] Method Time Signature ABORH Type Completed [facility] LABORATORY Specimen Anatomical Collection Method Collection Time Receive d Time (Source) Location / / Volume Laterality Blood specimen 08/09/2017 1:10 AM 018 1:35 (specimen) EST AM EST Resulting Agency Comment Spec In Lab Yonathan Smith MD BLOOD BANK ORDERABLES Performing Organization Address City/[facility]/[place] [address] Antibody screen (08/09/2017 1:10 AM EST) [facility] Method Time Signature Ab Screen Negative [facility] LABORATORY Expires at 08/12/2017 [facility] 2359 on: [facility] Specimen Anatomical Collection Method Collection Time Receive d Time (Source) Location / / Volume Laterality Blood specimen 08/09/2017 1:10 AM 018 1:35 (specimen) EST AM EST Resulting Agency Comment Spec In Lab Yonathan Smith MD BLOOD BANK ORDERABLES Performing Organization Address City/[facility]/[place] [address] ABO/Rh Typing (08/09/2017 1:10 [...] Address City/[facility]/[place] [address] (ABNORMAL) APTT (08/09/2017 1:10 [...] Organization Address City/State/[place] [address] (ABNORMAL) Differential, Automated (08/09/2017 1:10 AM EST) [facility] gist Method Time Signature Neutrophils % 76.2 % [facility] Neutr Abs (ANC) 8.59 (H) 1.70 - [facility] 6.10 [facility] x10(3)/[facility] LABORATORY Lymphocytes % 11.0 % [facility] Lymphocytes Abs 1.2 0.9 - 3.2 [facility] x10(3)/[facility] LABORATORY Monocytes % 8.4 % [facility] Monocyte Abs 1.0 (H) 0.3 - 0.9 [facility] x10(3)/[facility] LABORATORY Eosinophils % 3.5 % [facility] Eosinophils Abs 0.4 0.0 - 0.4 [facility] x10(3)/[facility] LABORATORY Basophils % 0.5 % [facility] Basophils Abs 0.1 0.0 - 0.1 [facility] x10(3)/[facility] LABORATORY Immature Gran % [...] Organization Address City/State/[place] [address] (ABNORMAL) Hemogram (08/09/2017 1:10 AM EST) Analysis Performed At Patho logist Time Signature WBC 11.3 (H) 4.0 - 9.5 [facility] x10(3)/[facility] LABORATORY RBC 3.47 (L) 4.58 - [facility] 5.54 [facility] x10(6)/[facility] LABORATORY Hemoglobin 10.0 (L) 13.7 - [facility] 16.5 gm/dL [facility] Hematocrit 31.9 (L) 40.5 - [facility] 48.5 % [facility] MCV 91.9 82.9 - [facility] 93.1 [facility] LABORATORY MCH 28.8 27.5 - [facility] 32.1 pg [facility] MCHC 31.3 (L) 32.0 - [facility] 35.7 gm/dL [facility] Platelets 234 145 - 357 [facility] x10(3)/[facility] LABORATORY RDWSD 54.0 (H) 36.0 - [facility] 45.0 [facility] LABORATORY RDWCV 16.2 (H) 11.4 - [facility] 13.8 % [facility] MPV 8.7 7.6 - 12.9 [facility] LABORATORY nRBC % Auto 0.0 % [facility] nRBC Abs Auto 0.000 0.000 - [facility] Alfred 0.000 [facility] x10(3)/[facility] LABORATORY Specimen Anatomical Collection Method Collection Time Receive d Time (Source) Location / / Volume Laterality Blood specimen 08/09/2017 1:10 AM 018 1:19 (specimen) EST AM EST Resulting Agency Comment Spec In Lab Yonathan Smith MD HEMATOLOGY ORDERABLES Performing Organization Address [facility] [place] [address] (ABNORMAL) Prothrombin Time (08/09/2017 [...] Smith MD HEMATOLOGY ORDERABLES Performing Organization Address [facility] [place] [address] (ABNORMAL) Basic Metabolic Panel (non-fasting) (08/09/2017 1:10 AM EST) athologist Signature Glucose Lvl 108 65 - 199 [facility] mg/dL [facility] Comment: Diabetes: >=200 mg/dL plus symp toms BUN 34 (H) 10 - 20 mg/dL [facility] Creatinine 1.54 (H) 0.80 [...] HOSPITAL LABORATORY Estimated GFR 45 (L) >=60 [facility] Comment: The reported eGFR should be multiplied b y 1.2 for patients. The MDRD is not an appropriate measure o f renal function for patients with body mass extremes or in patients with acute kidney failure. http://[employer]/DHnkdep http://[employer]/DHMCnkf Specimen Anatomical Collection Method Collection Time Receive d Time (Source) Location / / Volume Laterality Blood specimen 08/09/2017 1:10 AM 018 1:19 (specimen) EST AM EST Resulting Agency Comment Spec In Lab Yonathan Smith MD CHEMISTRY ORDERABLES Performing Organization Address City/State/ZIP Code Phon e Number [address] POCT Glucose (08/09/2017 12:05 AM EST) athologist Signature POC Glucose 128 65 - 199 [facility] mg/dL [facility] Comment: Supplemental [...] Address City/[facility]/[place] [address] (ABNORMAL) POCT Glucose (08/08/2017 7:36 PM EST) athologist Signature POC Glucose 215 (H) 65 - 199 [facility]/dL [facility] Comment: Supplemental [...] Address City/[facility]/[place] [address] (ABNORMAL) POCT Glucose (08/08/2017 6:23 PM EST) athologist Signature POC Glucose 216 (H) 65 - 199 [facility] mg/dL [facility] Comment: Supplemental [...] Address City/[facility]/[place] [address] (ABNORMAL) APTT (08/08/2017 6:00 [...] Address City/[facility]/ZIP Code Phon e Number [address] POCT Glucose (08/08/2017 4:42 PM EST) athologist Signature POC Glucose 78 65 - 199 [facility] mg/dL [facility] Comment: Supplemental ranges: <140 mg/dL before meals <180 mg/dL all other times of the day Specimen Anatomical Collection Method Collection Time Receive d Time (Source) Location / / Volume Laterality Blood specimen 08/08/2017 4:42 PM 018 4:42 (specimen) EST PM EST Yonathan Smith MD POINT OF CARE TEST ORDERABLE S Performing Organization Address City/State/[place] [address] (ABNORMAL) POCT Glucose (08/08/2017 4:01 PM EST) athologist Signature POC Glucose 58 (L) 65 - 199 [facility] mg/dL [facility] Comment: Supplemental ranges: <140 mg/dL before meals <180 mg/dL all other times of the day Specimen Anatomical Collection Method Collection Time Receive d Time (Source) Location / / Volume Laterality Blood specimen 08/08/2017 4:01 PM 018 4:01 (specimen) EST PM EST Yonathan Smith MD POINT OF CARE TEST ORDERABLE S Performing Organization Address City/State/[place] [address] POCT Glucose (08/08/2017 11:51 AM EST) athologist Signature POC Glucose 90 65 - 199 [facility] mg/dL [facility] Comment: Supplemental ranges: <140 mg/dL before meals <180 mg/dL all other times of the day Specimen Anatomical Collection Method Collection Time Receive d Time (Source) Location / / Volume Laterality Blood specimen 08/08/2017 11:51 8 (specimen) AM EST 11:51 AM EST Yonathan Smith MD POINT OF CARE TEST ORDERABLE S Performing Organization Address City/State/[place] [address] (ABNORMAL) APTT (08/08/2017 10:27 [...] Address City/State/ZIP Code Phon e Number [address] POCT Glucose (08/08/2017 8:02 AM EST) athologist Signature POC Glucose 178 65 - 199 [facility] mg/dL [facility] Comment: Supplemental ranges: <140 mg/dL before meals <180 mg/dL all other times of the day Specimen Anatomical Collection Method Collection Time Receive d Time (Source) Location / / Volume Laterality Blood specimen 08/08/2017 8:02 AM 018 8:02 (specimen) EST AM EST Yonathan Smith MD POINT OF CARE TEST ORDERABLE S Performing Organization Address City/State/[place] [address] (ABNORMAL) APTT (08/08/2017 4:51 AM EST) athologist Signature PTT >160 25 - 35 [facility] (Critical) sec [facility] Comment: Called by: HOWARD, Read [...] Organization Address City/State/ZIP Code Phon e Number [place] [phone]OS[address] LAB[address]ORY Drive (ABNORMAL) Differential, Automated (08/08/2017 4:51 AM EST) [facility] gist Method Time Signature Neutrophils % 77.9 % [facility] Neutr Abs (ANC) 8.17 (H) 1.70 - [facility] 6.10 [facility] x10(3)/[facility] LABORATORY Lymphocytes % 10.3 % [facility] Lymphocytes Abs 1.1 0.9 - 3.2 [facility] x10(3)/[facility] LABORATORY Monocytes % 7.0 % [facility] Monocyte Abs 0.7 0.3 - 0.9 [facility] x10(3)/[facility] LABORATORY Eosinophils % 3.6 % [facility] Eosinophils Abs 0.4 0.0 - 0.4 [facility] x10(3)/[facility] LABORATORY Basophils % 0.5 % [facility] Basophils Abs 0.0 0.0 - 0.1 [facility] x10(3)/[facility] LABORATORY Immature Gran % 0.70 % [...] Organization Address City/State/[place] [address] (ABNORMAL) Hemogram (08/08/2017 4:51 AM EST) Analysis Performed At Patho logist Time Signature WBC 10.5 (H) 4.0 - 9.5 [facility] x10(3)/[facility] LABORATORY RBC 3.27 (L) 4.58 - [facility] 5.54 [facility] x10(6)/[facility] LABORATORY Hemoglobin 9.3 (L) 13.7 - [facility] 16.5 gm/dL [facility] Hematocrit 30.3 (L) 40.5 - [facility] 48.5 % [facility] MCV 92.7 82.9 - [facility] 93.1 [facility] LABORATORY MCH 28.4 27.5 - [facility] 32.1 pg [facility]ORATORY MCHC 30.7 (L) 32.0 - [facility] 35.7 gm/dL [facility]ORATORY Platelets 252 145 - 357 [facility] x10(3)/[facility] LABORATORY RDWSD 54.6 (H) 36.0 - [facility] RYAN 45.0 [facility] LABORATORY RDWCV 16.2 (H) 11.4 - [facility] RYAN 13.8 % [facility] LABORATORY MPV 9.1 7.6 - 12.9 [facility] nRBC % Auto 0.0 % [facility]ORATORY nRBC Abs Auto 0.000 0.000 - [facility] RYAN 0.000 [facility] x10(3)/[facility] LABORATORY Specimen Anatomical Collection Method Collection Time Receive d Time (Source) Location / / Volume Laterality Blood specimen 08/08/2017 4:51 AM 018 5:14 (specimen) EST AM EST Resulting Agency Comment Spec In Lab Yonathan Smith MD HEMATOLOGY ORDERABLES Performing Organization Address City/State/[place] [address] (ABNORMAL) Prothrombin Time (08/08/2017 [...] Organization Address City/State/[place] [address] (ABNORMAL) Basic Metabolic Panel (non-fasting) (08/08/2017 4:51 AM EST) athologist Signature Glucose Lvl 229 (H) 65 - 199 [facility] mg/dL [facility] Comment: Diabetes: >=200 mg/dL plus symp toms BUN 35 (H) 10 - 20 mg/dL [facility] LABOR[facility]ORY Creatinine 1.57 (H) 0.80 [...] 15 mmol/L [facility] Calcium 7.9 (L) 8.5 - 10.5 mg/dL [facility] LABORATORY Estimated GFR 44 (L) >=60 [facility] Comment: The reported eGFR should be multiplied b y 1.2 for patients. The MDRD is not an appropriate measure o f renal function for patients with body mass extremes or in patients with acute kidney failure. http://[employer]/DHnkdep http://[employer]/DHMCnkf Specimen Anatomical Collection Method Collection Time Receive d Time (Source) Location / / Volume Laterality Blood specimen 08/08/2017 4:51 AM 018 5:14 (specimen) EST AM EST Resulting Agency Comment Spec In Lab Yonathan Smith MD CHEMISTRY ORDERABLES Performing Organization Address City/[facility]/ZIP Code Phon e Number [address] POCT Glucose (08/08/2017 4:20 AM EST) athologist Signature POC Glucose 193 65 - 199 [facility]/dL [facility] Comment: Supplemental [...] Address City/[facility]/ZIP Code Phon e Number [address] POCT Glucose (08/07/2017 11:11 PM EST) athologist Signature POC Glucose 124 65 - 199 [facility] mg/dL [facility] Comment: Supplemental [...] Address City/[facility]/[place] [address] (ABNORMAL) APTT (08/07/2017 10:18 [...] Address City/[facility]/[place] [address] POCT Glucose (08/07/2017 8:10 PM EST) athologist Signature POC Glucose 140 65 - 199 [facility] mg/dL [facility] Comment: Supplemental [...] Address City/[facility]/[place] [address] POCT Glucose (08/07/2017 5:27 PM EST) athologist Signature POC Glucose 187 65 - 199 [facility] mg/dL [facility] Comment: Supplemental [...] Address City/[facility]/[place] [address] POCT Glucose (08/07/2017 3:29 PM EST) athologist Signature POC Glucose 86 65 - 199 [facility] mg/dL [facility] Comment: Supplemental ranges: <140 mg/dL before meals <180 mg/dL all other times of the day Specimen Anatomical Collection Method Collection Time Receive d Time (Source) Location / / Volume Laterality Blood specimen 08/07/2017 3:29 PM 018 3:29 (specimen) EST PM EST Yonathan Smith MD POINT OF CARE TEST ORDERABLE S Performing Organization Address [facility] [place] [address] (ABNORMAL) APTT (08/07/2017 2:50 [...] HEMATOLOGY ORDERABLES Performing Organization Address City/[facility]/ZIP [facility] Phon e Number [place] [address] (ABNORMAL) POCT Glucose (08/07/2017 2:23 PM EST) athologist Signature POC Glucose 55 (L) 65 - 199 [place] [facility] mg/dL [facility] LABORATORY Comment: Supplemental [...] Address City/State/ZIP Code Phon e Number [address] POCT Glucose (08/07/2017 12:08 PM EST) athologist Signature POC Glucose 77 65 - 199 [facility] Comment: Supplemental [...] Address City/State/ZIP Code Phon e Number [address] (ABNORMAL) Differential, Automated (08/07/2017 7:30 AM EST) [facility] gist Method Time Signature Neutrophils % 73.8 % [facility] LABORATORY Neutr Abs (ANC) 7.17 (H) 1.70 - [facility] 6.10 [facility] x10(3)/[facility] LABORATORY Lymphocytes % 12.2 % [facility] LABORATORY Lymphocytes Abs 1.2 0.9 - 3.2 [facility] x10(3)/[facility] LABORATORY Monocytes % 9.0 % [facility] LABORATORY Monocyte Abs 0.9 0.3 - 0.9 [facility] x10(3)/[facility] LABORATORY Eosinophils % 3.9 % [facility] LABORATORY Eosinophils Abs 0.4 0.0 - 0.4 [facility] x10(3)/[facility] LABORATORY Basophils % 0.6 % [facility] LABORATORY Basophils Abs 0.1 0.0 - 0.1 [facility] x10(3)/[facility] LABORATORY Immature Gran % 0.50 % [facility] [...] Organization Address City/State/[place] [address] (ABNORMAL) Hemogram (08/07/2017 7:30 AM EST) Analysis Performed At Patho logist Time Signature WBC 9.7 (H) 4.0 - 9.5 [facility] x10(3)/[facility] LABORATORY RBC 3.54 (L) 4.58 - [facility] 5.54 [facility] x10(6)/[facility] LABORATORY Hemoglobin 9.9 (L) 13.7 - [facility] 16.5 gm/dL [facility] LABORATORY Hematocrit 32.3 (L) 40.5 - [facility] 48.5 % [facility]OR[facility]ORY MCV 91.2 82.9 - [facility] 93.1 fL [facility]ORY MCH 28.0 27.5 - [facility] 32.1 pg [facility] LABORATORY MCHC 30.7 (L) 32.0 - [facility] 35.7 gm/dL [facility] LABORATORY Platelets 312 145 - 357 [facility] x10(3)/[facility] LABORATORY RDWSD 53.2 (H) 36.0 - [facility] 45.0 [facility] LABORATORY RDWCV 16.0 (H) 11.4 - [facility] 13.8 % [facility] LABORATORY MPV 8.9 7.6 - 12.9 [facility] LABORATORY nRBC % Auto 0.0 % [facility] LABORATORY nRBC Abs Auto 0.000 0.000 - [facility] 0.000 [facility] x10(3)/[facility] LABORATORY Specimen Anatomical Collection Method Collection Time Receive d Time (Source) Location / / Volume Laterality Blood specimen 08/07/2017 7:30 AM 018 7:45 (specimen) EST AM EST Resulting Agency Comment Spec In Lab Yonathan Smith MD HEMATOLOGY ORDERABLES Performing Organization Address City/State/ZIP Code Phon e Number [place] [id number] (ABNORMAL) Basic Metabolic Panel (non-fasting) (08/07/2017 7:30 AM EST) P athologist Signature Glucose Lvl 80 65 - 199 [facility] mg/dL [facility] LABORATORY Comment: Diabetes: >=200 mg/dL plus symp toms BUN 31 (H) 10 - 20 mg/dL [facility] LABORATORY Creatinine 1.22 0.80 - [...] HOSPITAL LABORATORY Estimated GFR 59 (L) >=60 [facility] LABORATORY Comment: The reported eGFR should be multiplied b y 1.2 for patients. The MDRD is not an appropriate measure o f renal function for patients with body mass extremes or in patients with acute kidney failure. http://[employer]/DHnkdep http://[employer]/DHMCnkf Specimen Anatomical Collection Method Collection Time Receive d Time (Source) Location / / Volume Laterality Blood specimen 08/07/2017 7:30 AM 018 7:45 (specimen) EST AM EST Resulting Agency Comment Spec In Lab Yonathan Smith MD CHEMISTRY ORDERABLES Performing Organization Address City/[facility]/ZIP Code Phon e Number [address] POCT Glucose (08/07/2017 7:27 AM EST) P athologist Signature POC Glucose 81 65 - 199 [facility] mg/dL [facility] LABORATORY Comment: Supplemental [...] Address City/[facility]/ZIP Code Phon e Number [address] APTT (08/07/2017 7:04 AM EST) athologist Signature PTT 34 25 - 35 sec [facility] [...] Organization Address City/State/[place] [address] (ABNORMAL) Prothrombin Time (08/07/2017 [...] Address City/[facility]/[place] [address] POCT Glucose (08/07/2017 4:03 AM EST) athologist Signature POC Glucose 93 65 - 199 [facility] Comment: Supplemental ranges: <140 mg/dL before meals <180 mg/dL all other times of the day Specimen Anatomical Collection Method Collection Time Receive d Time (Source) Location / / Volume Laterality Blood specimen 08/07/2017 4:03 AM 018 4:03 (specimen) EST AM EST Yonathan Smith MD POINT OF CARE TEST ORDERABLE S Performing Organization Address City/State/[place] [address] POCT Glucose (08/07/2017 12:04 AM EST) athologist Signature POC Glucose 107 65 - 199 [facility]dL [facility] Comment: Supplemental [...] Address City/[facility]/ZIP Code Phon e Number [address] POCT Glucose (08/06/2017 7:56 PM EST) P athologist Signature POC Glucose 178 65 - 199 [facility] mg/dL [facility] LABORATORY Comment: Supplemental [...] Address City/State/ZIP Code Phon e Number [address] TcPO2 (08/06/2017 2:32 PM EST) Component Value Ref Test Analysis Performed At Patholo gist Range Method Time Signature VB Text Department: Vascular Surgery Lab VASCUBASE Report Patient: [id number] (GREGORY HOANG) CPT: [id number] ICD10: I99.8 Referring Physician: YONATHAN SMITH ?? [...] Alyson Middleton RN) 0427 (Given - Provider: iMra Truong, VAMSI)0751 (Given - Provider: Dory Truong, VAMSI)1042 (Given [...]
Routine documented in this encounter Care Teams Pear Picker Relationship Specialty Start Date End Date Lovely Vicente MD PCP - General 04/16/[address] [place] [address] documented as of this encounter
--- OUTSIDE RECORDS SUMMARY | 2022-03-13 10:57 | XMS_ITS | Encounter Summary ---
:1945 Author Organization [facility] [place] [address] Care Team Providers Name Role Phone Lovely Vicente MD Primary Care Provider Reason for Visit Auth/Cert Specialty Diagnoses / Procedures Referred By Contact Refer red To Contact Diagnoses Critical lower limb ischemia CELLULITIS RT FOOT Procedures EMERGENCY Referral ID Status Reason Start Date Expiration Date Visits Requ ested Visits Authorized [id number] 1 1 Encounter Details Date Type Department Care Team Description 08/11/2017 Surgery Main Operating Room Yonathan Smith (M SURG) DRESSING CHANGE Barbara Ocampo MD (FOR OTHER THAN IVAN) [facility] UNDER ANES. 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 Patient [...] Dorsalis Pedis (Ankle) Artery ?132 ? 0.94 ??Iosco-Biphasic ? Posterior Tibial (Ankle) Artery ??154 ? 1.10 ??Iosco-Biphasic ? Fourth Toe ? 67 ?0.48 ?? [...] the foot. Discharge Conditions/Prognosis: Good Discharge to: [facility] Rehab Discharge Medications: Your Medications New [...] For any problems or questions please call [phone] ZELDA Smith, pairing machine operator Nurse Clinician For issues on weeknights after 5pm and weekends please call [phone] and ask for the Vascular Fellow mass communications professor. General Instructions None Future Appointments and Orders Future Appointments Provider Department Dept Phone 08/26/2017 4:00 PM Aurelia Rivera PA Vascular Surgery [facility] [place] [phone] 09/07/2017 3:00 PM LAB, THREE L Lab 3L [facility] [phone] 09/07/2017 4:00 PM Luz Prescott MD Endocrinology at [place] [phone] 09/09/2017 8:00 AM Barbra Soares APRN Pain Management at [place] [phone] Please bring a list of your current [...] For any problems or questions please call [phone] ZELDA Smith, pairing machine operator Nurse Clinician For issues on weeknights after 5pm and weekends please call [phone] and ask for the Vascular Fellow mass communications professor. documented in this encounter Medications at Time [...] Management Discharge Note Patient Destination: [facility] ([facility]) [address] [place] [id number] Transportation: with (at bedside) Time of Discharge: by 12 noon Level of Care: swing Patient Aware: yes Family Notified: yes Md to call report to: Yissel Quintero BENCH WORKER already called RN to call report to: [phone] Shirin Wolf Office of Care Management Pager [phone] Shirin Wagner RN - 08/16/2017 10:50 AM EST [facility] has offered pt swing bed. Pt and accept bed. will transport via car. BENCH WORKER Yissel Quintero aware; d/c paperwork will be completed by 12 noon. [facility] requests pt arrival by 1400 today; BENCH WORKER, RN, and family aware. BENCH WORKER called [facility] and was told that they prefer pt to arrive with wound vac dressing applied but clamped. BENCH WORKER applied new wound vac dressing. RN has [facility] number to call report. PASSR completed; BENCH WORKER paged to request provider signature in highlighted space. Indigo from [facility] notified via email that home wound vac now cancelled; [facility] has picked up from room and order cancelled. Packet started and provided to service unit operator. Medicare important message explained to patient, patient signed. Copy provided to patient and signature page to OCM for inclusion in pt EMR. Radha Georges - 08/16/2017 10:34 AM EST Office of Care Management/Sql Bi Developer Patient Name: Gregory Hoang : 1945 Patient has been offered a swing bed at [facility]. The patient will be transported by private transportation. No MD to MD report necessary Please call Nursing Report to [phone], ask for bone process operator. Info to accompany patient: Narcotic Prescriptions Copies of Medication Administration Records and IV sheets for past 10 days. Plan: Sql Bi Developer will be available to the patient and Circulation Assistant-RN and/or Lease Examiner for further assistance. Patient will be discharged to: [facility] [address] [place] [address] [id number] Radha Powers, Sql Bi Developer Mira Black, VAMSI - 08/15/2017 10:05 PM EST [address] Flores to ask if he wanted to hold metoprolol dose. BP 95/58. OK to hold this dose Courtney Brito - 08/15/2017 3:26 PM EST Office of Care Management(OCM)/Sql Bi Developer(RS)/ D/C Planning re : Patient is medically ready for d/c today. RS has been in contact with [facility] to see if they could offer a bed. [facility] is still reviewing the case and need their MD to review chart prior to accepting or declining. OCM team needs to check in with [place] tomorrow to check on status. 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 Vac in [...] patient's referral to: [facility] PHONE: [phone] FAX: [phone] CM spoke with RS who said that [...] rehab. Await recommendations from PT. Covering pager #[phone]. 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 Research Center Partner Kaitlin Saha, RN Pager #[phone] Payam Rosales - 08/13/2017 2:37 PM EST Ways Operator Encounter Note Patient Name: Gregory Hoang : [id number] MR#: [id number] Admit Date: 08/06/2017 1:41 PM Hospital Day 7 days Narrative: Visited to introduce and assess acceptance of Ways Operator services. Pt was awake, alert, oriented and in chair and family was there. Assessment:Patient coping positively with stresses of illness/hospitalization at this time. Pt says that he is hoping to get better and his family was there. Pt says that he has family care and supportand taking one day at time. Intervention and Outcome: Provided emotional support and encouraging presence. 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 A letter describing our affiliations was reviewed with them and theywere educated about their right to choose where referrals are placed. Patient requests referral to [facility] [employer]. PHONE: [phone] FAX: [phone]. And Home NPWT (Negative Pressure Wound Therapy) aka wound vac device made available to pt. Serial # confirmed. Reviewed [facility] Proof of Delivery/Assignment of Benefits Statement(POD/AOB) Form w patient or authorized agent signing on behalf of patient. Copy of POD/AOB provided to pt and other copy faxed to [employer] @ fax# [phone] Expected date of discharge: 08/12/2017. 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 Heparin gtt continues to run. [...] of : 1945 AGE 72 y.o. Address: [address] [place] [address] [place] [id number] (home) Mobile: Telephone Information: Referring Provider: No [...] FACIAL NERVE MONITORING, SETUP performed by Manny Mkcnight MD at [facility] MAIN OR ??? 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 Vascular resident mass communications professor and will forward result to the team prior to rounds. 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 Patient [...] left blue toes with CTA showing R YARN SPOOLER pseudoaneurysm (now thrombosed) and occluded ATs bilaterally. [...] status documented in this encounter Procedure Notes Stevne Zhang MD - 08/10/2017 10:03 AM EST Vascular Surgery Procedure Note Pre-procedure Dx: Blue toe syndrome Post-procedure Dx: Occluded R AT Procedure: 1. Left femoral arterial access 2. RLE angiogram 3. Selective catheterization of R plantar artery 4. Balloon angioplasty of R PT with Eleazar 2.5x80 5. Completion RLE angiogram 6. L YARN SPOOLER angiogram 7. 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 - L YARN SPOOLER angriogram demonstrated: High femoral bifurcation over the proximal half of the femoral head. L YARN SPOOLER access in the distal L YARN SPOOLER. - Closure device: Mynx Technical Procedure: The [...] for a 45cm 5F Destination. V18 and Knott and QuickCross catheters were used to select [...] 5F. A stationed picture of the L YARN SPOOLER was performed as the patient was noted to have a very high bifurcation. Access appeared in the distal R YARN SPOOLER. Closure and sheath removal was performed with [...] PM EST 1440 report called to [place] nurse Tessa AGUSTIN documented in this encounter Miscellaneous Notes Plan of Care - Dory Truong RN - 08/16/2017 10:51 AM EST Problem: Patient Care Overview Goal: Plan of Care Review Outcome: Outcome (s) achieved Date Met: 08/16/17 08/14/17 1939 08/16/17 2781 Coping/Psychosocial Plan Of Care Reviewed With -- patient Plan of Care Review Progress improving -- Discussed discharge instructions with pt and pt's spouse. Discharge to [facility]. Goal: Individualization & Mutuality Outcome: Outcome [...] sit/sit to supine -- Bed Mobility Goal, Strafford Level independent -- Bed Mobility Goal, Date [...] days -- Transfer Training Goal, Activity Type rqs-dt-husmj/qedbz-od-xir -- Transfer Train Goal, Strafford Level conditional independence -- Transfer Train Goal, [...] call cabello within reach, Hourly rounding by RN/MATCHBOOK ASSEMBLER. Bed alarm / Chair alarm. Patient-specific fall [...] Smith MD - 08/15/2017 6:28 PM EST [facility] Operative Note Patient Name: Gregory Hoang : [id number] MR#: [id number] Case Date: 08/09/2017 Surgeon: Surgeon(s) and Role: [...] 2.5x80 5. Completion RLE angiogram 6. L YARN SPOOLER angiogram 7. Mynx closure Precautions/Restrictions: fall, sternal [...] other (see comments) (or swing bed) Pager: [phone] BASSAM ELIAS, PT 08/14/2017 Inpatient Physical Therapy [...] to Achieve by discharge Gait Training Goal, Strafford Level conditional independence;set up required Gait Training [...] these facilities over the weekend except for [facility]. CM spoke with [facility] KANWAL Sandhu RN who said that they do not anticipate any beds over the weekend. Reviewed with patient/ that they need to be aware that patient will need to take the first bed offered at the facilities that they make referrals to. Their choices are: 1- [facility] PHONE: [phone] FAX: [phone] 2- [facility] ([facility]) [address] [place] [address] 3- [facility])([facility]) [address] [place] [address] I have discussed Medicare/Private Insurance [...] RS/CM on Wednesday to follow-up. Covering pager #[phone] for today. Plan of Care - Henrique [...] for Consult: We are seeing Mr. Gregory oHang at the request of Yonathan Smith MD [...] with additional findings of pseudoaneurysm on R YARN SPOOLER and bilateral anterior tibial artery occlusions. Was [...] an outpatient once discharged. Have patient call [phone] to set up an appointment. Follow-up: Dermatology will sign-off for now. Please do not hesitate to contact us if you have any questions orconcerns. Impression and Recommendations discussed with primary team on 08/13/2017. Karo Henderson MD Resident in Dermatology Section of Dermatology, Department of Surgery [facility] Pager [phone] Patient seen and evaluated with staff Manager Studio: Halima Cordero MD Section of Dermatology [facility] [...] 2.5x80 5. Completion RLE angiogram 6. L YARN SPOOLER angiogram 7. Mynx closure Active Non-Hospital Problems [...] home with home health ([facility]NA PT&OT) Pager: [phone] YASIR TELLO OT 08/12/2017 Occupational Therapy Rehabilitation [...] 2.5x80 5. Completion RLE angiogram 6. L YARN SPOOLER angiogram 7. Mynx closure Past Medical History: [...] with 24/7 assistance and maximal services) Pager: [phone] NICHOLAS MORA, JESSIE 08/12/2017 Physical Therapy Rehabilitation [...] sit/sit to supine -- Bed Mobility Goal, Strafford Level independent -- Bed Mobility Goal, Outcome Achieved -- goal ongoing Goal: Gait Training Goal Stand Alone Therapy Goal Outcome: Ongoing (Interventions Implemented as Appropriate) 08/11/17 1310 08/12/17 1510 Gait Training Goal Gait Training Goal, Date Established 08/11/17 -- Gait Training Goal, Time to Achieve 5 - 7 days -- Gait Training Goal, Strafford Level conditional independence -- Gait Training Goal, [...] days -- Transfer Training Goal, Activity Type ewd-qn-tucrd/wutyc-np-vkw -- Transfer Train Goal, Strafford Level conditional independence -- Transfer Training Goal, [...] Smith MD - 08/11/2017 2:52 PM EST [facility] Operative Note Patient Name: Gregory Hoang : [id number] MR#: [id number] Case Date: 08/11/2017 Surgeon: Surgeon(s) and Role: [...] 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 Completion RLE angiogram 6. L YARN SPOOLER angiogram 7. Mynx closure He is very [...] Anticipated Discharge Disposition: inpatient rehabilitation facility Pager: [phone] LAWRENCE GONZALEZ, PT 08/11/2017 Physical Therapy Rehabilitation [...] to sit/sit to supine Bed Mobility Goal, Strafford Level independent Goal: Gait Training Goal Stand Alone Therapy Goal Outcome: Ongoing (Interventions Implemented as Appropriate) 08/11/17 1310 Gait Training Goal Gait Training Goal, Date Established 08/11/17 Gait Training Goal, Time to Achieve 5 - 7 days Gait Training Goal, Strafford Level conditional independence Gait Training Goal, Assist [...] 7 days Transfer Training Goal, Activity Type rqv-mu-buuxs/xdjkn-pd-jkb Transfer Train Goal, Strafford Level conditional independence Plan of Care - [...] call cabello within reach, Hourly rounding by RN/MATCHBOOK ASSEMBLER. Bed alarm / Chair alarm. ? Patient-specific fall prevention interventions for sensory deficits provided, if applicable: [X] Yes CPG GOAL OUTCOME EVALUATION: Initial Assessments - Kaitlin Saha RN - 08/09/2017 11:43 AM EST Office of Care Management Initial Assessment Kaitlin Saah RN reviewed record and discussed patient with [...] 04/05/2013 Hospitalizations Within the Past 30 Days: [facility] 07/20/2017 Anticipated Length Of Stay (If known): Expected Length of Hospitalization: 5-7 days2-3 days Current Decision-Making Capacity: Alert and oriented x 4 Advance Care Planning: on file Kisha Hoang [facility] [phone] Current Coping/Education/Information Needs: pt and spouse state [...] Health/Prescription Coverage: Primary Insurance: MEDICARE Secondary Insurance: Signal ID Prescription Coverage: See above Preferred Pharmacy: [id number] Other: N/A Primary Care Provider: Lovely Vicente MD [phone] Patient/Caregiver Goals of Treatment: Patient plans to [...] of care planning. Kaitlin Saha RN Pager: [phone] Plan of Care - Melba Jaramillo RN [...] Overview Goal: Plan of Care Review 08/08/17 7904 Coping/Psychosocial Plan Of Care Reviewed With patient [...] call cabello within reach, Hourly rounding by RN/MATCHBOOK ASSEMBLER. Bed alarm / Chair alarm. Patient-specific fall [...] at bedside and MD TEAM Carrying pager [phone] contacted (via Radio page) and notified of [...] MD [facility] [address] T[address] [place], [place] [address] (Wo rk) 05/28/2022 Appointment Cardiology Zulma Dolan MD [facility] [address] [place], [place] [address] (Wo rk) 05/28/2022 Laboratory Appointment Lab 05/28/2022 Office Visit Cardiology Zulma Dolan MD [facility] [place] [address] Liz Poole PA [facility] [place] [address] 06/10/2022 Office Visit Dermatology Laura Scherer MD [facility] DR TEJA GR-DERMAT [place], [place] [address] (Wo rk) documented as of [...] TYPE AND SCREEN Routine 08/09/2017 1:10 AM ([facility]/SHANDA) EST BASIC METABOLIC PANEL Routine 08/09/2017 1:10 [...] Signature POC Glucose 160 65 - 199 [facility] mg/dL [facility] LABORATORY [...] Organization Address City/State/ZIP [place] [address] (ABNORMAL) Differential, Automated (08/16/2017 5:08 AM EST) [facility] gist Method Time Signature Neutrophils % 73.9 % [facility] LABORATORY Neutr Abs (ANC) 5.37 1.70 - [facility] 6.10 [facility] x10(3)/[facility] LABORATORY Lymphocytes % 10.1 % [facility] Lymphocytes Abs 0.7 (L) 0.9 - 3.2 [facility] x10(3)/[facility] LABORATORY Monocytes % 10.1 % [facility] LABORATORY Monocyte Abs 0.7 0.3 - 0.9 [facility] x10(3)/[facility] LABORATORY Eosinophils % 5.1 % [facility] LABORATORY Eosinophils Abs 0.4 0.0 - 0.4 [facility] x10(3)/[facility] LABORATORY Basophils % 0.4 % [facility] LABORATORY Basophils Abs 0.0 0.0 - 0.1 [facility] x10(3)/[facility] LABORATORY Immature Gran % 0.40 [...] Melisa Gran Abs 0.03 0.00 - 0.04 x10(3)/[facility] LABORATORY Specimen Anatomical Collection Method Collection Time Receive d Time (Source) Location / / Volume Laterality Blood specimen 08/16/2017 5:08 AM 018 5:20 (specimen) EST AM EST Resulting Agency Comment Spec In Lab Yonathan Smith MD HEMATOLOGY ORDERABLES Performing Organization Address City/State/ZIP Code Phon e Number [address] (ABNORMAL) Hemogram (08/16/2017 5:08 AM EST) Analysis Performed At Patho logist Time Signature WBC 7.3 4.0 - 9.5 [facility] x10(3)/[facility] LABORATORY RBC 3.36 (L) 4.58 - [facility] 5.54 [facility] x10(6)/[facility] LABORATORY Hemoglobin 9.7 (L) 13.7 - [facility] 16.5 gm/dL [facility] LABORATORY Hematocrit 30.3 (L) 40.5 - [facility] 48.5 % [facility] LABORATORY MCV 90.2 82.9 - [facility] 93.1 [facility] LABORATORY MCH 28.9 27.5 - [place] 32.1 pg [facility] LABORATORY MCHC 32.0 32.0 - [place] 35.7 gm/dL [facility] LABORATORY Platelets 282 145 - 357 [facility] x10(3)/[facility] LABORATORY RDWSD 53.9 (H) 36.0 - [facility] RYAN 45.0 [facility] LABORATORY RDWCV 16.5 (H) 11.4 - [facility] RYAN 13.8 % [facility] LABORATORY MPV 9.0 7.6 - 12.9 [facility] LABORATORY nRBC % Auto 0.0 % [facility] LABORATORY nRBC Abs Auto 0.000 0.000 - [place] 0.000 [facility] x10(3)/[facility] LABORATORY Specimen Anatomical Collection Method Collection Time Receive d Time (Source) Location / / Volume Laterality Blood specimen 08/16/2017 5:08 AM 018 5:20 (specimen) EST AM EST Resulting Agency Comment Spec In Lab Yonathan Smith MD HEMATOLOGY ORDERABLES Performing Organization Address City/State/ZIP Code Phon e Number [facility] [place] [address] (ABNORMAL) Basic Metabolic Panel (non-fasting) (08/16/2017 5:08 AM EST) P athologist Signature Glucose Lvl 141 65 - 199 [facility] mg/dL [facility] LABORATORY [...] or in patients with acute kidney failure. [email or web address] Specimen Anatomical Collection Method Collection Time Receive d Time (Source) Location / / Volume Laterality Blood specimen 08/16/2017 5:08 AM 018 5:20 (specimen) EST AM EST Resulting Agency Comment Spec In Lab Yonathan Smith MD CHEMISTRY ORDERABLES Performing Organization Address City/State/ZIP Code Phon e Number [address] (ABNORMAL) Prothrombin Time [...] Organization Address City/State/ZIP Code Phon e Number [address] POCT Glucose (08/16/2017 4:09 AM EST) athologist Signature POC Glucose 147 65 - 199 [facility] mg/dL [facility] LABORATORY Comment: [...] Organization Address City/State/ZIP Code Phon e Number [address] POCT Glucose (08/15/2017 11:56 PM EST) athologist Signature POC Glucose 176 65 - 199 [facility] mg/dL [facility] LABORATORY Comment: [...] Organization Address City/State/[place] [address] POCT Glucose (08/15/2017 8:05 PM EST) athologist Signature POC Glucose 136 65 - 199 [place] [facility] mg/dL [facility] LABORATORY Comment: [...] City/[facility]/[place] [address] (ABNORMAL) POCT Glucose (08/15/2017 4:50 PM EST) athologist Signature POC Glucose 232 (H) 65 - 199 [place] mg/dL [facility] LABORATORY Comment: [...] Organization Address City/State/[place] [address] POCT Glucose (08/15/2017 12:04 PM EST) athologist Signature POC Glucose 135 65 - 199 [place] mg/dL [facility] LABORATORY Comment: [...] Organization Address City/State/ZIP Code Phon e Number [address] POCT Glucose (08/15/2017 7:36 AM EST) P athologist Signature POC Glucose 124 65 - 199 [facility] mg/dL [facility] LABORATORY [...] Organization Address City/State/ZIP Code Phon e Number [address] (ABNORMAL) Differential, Automated (08/15/2017 6:22 AM EST) Patholo gist Method Time Signature Neutrophils % 76.1 % [facility] LABORATORY Neutr Abs (ANC) 6.62 (H) 1.70 - [facility] 6.10 [facility] x10(3)/[facility] LABORATORY Lymphocytes % 9.3 % [facility] LABORATORY Lymphocytes Abs 0.8 (L) 0.9 - 3.2 [facility] x10(3)/[facility] LABORATORY Monocytes % 9.4 % [facility] LABORATORY Monocyte Abs 0.8 0.3 - 0.9 [facility] x10(3)/[facility] LABORATORY Eosinophils % 4.0 % [facility] LABORATORY Eosinophils Abs 0.4 0.0 - 0.4 [facility] x10(3)/[facility] LABORATORY Basophils % 0.6 % [facility] LABORATORY Basophils Abs 0.0 0.0 - 0.1 [facility] x10(3)/[facility] LABORATORY Immature Gran % 0.60 % [...] 0.05 (H) 0.00 - 0.04 x10(3)/[facility] LABORATORY Specimen Anatomical Collection Method Collection Time Receive d Time (Source) Location / / Volume Laterality Blood specimen 08/15/2017 6:22 AM 018 6:33 (specimen) EST AM EST Resulting Agency Comment Spec In Lab Yonathan Smith MD HEMATOLOGY ORDERABLES Performing Organization Address City/State/[place] [address] (ABNORMAL) Hemogram (08/15/2017 6:22 AM EST) Analysis Performed At Patho logist Time Signature WBC 8.7 4.0 - 9.5 [facility] x10(3)/[facility] LABORATORY RBC 3.21 (L) 4.58 - [facility] 5.54 [facility] x10(6)/[facility] LABORATORY Hemoglobin 9.1 (L) 13.7 - [facility] gm/dL [facility] LABORATORY Hematocrit 29.0 (L) 40.5 - [facility] 48.5 % [facility] LABORATORY MCV 90.3 82.9 - [facility] 93.1 [facility] LABORATORY MCH 28.3 27.5 - [facility] 32.1 pg [facility] LABORATORY MCHC 31.4 (L) 32.0 - [facility] 35.7 gm/dL [facility] LABORATORY Platelets 254 145 - 357 [facility] x10(3)/[facility] LABORATORY RDWSD 53.9 (H) 36.0 - [facility] 45.0 [facility] LABORATORY RDWCV 16.3 (H) 11.4 - [facility] 13.8 % [facility] LABORATORY MPV 8.8 7.6 - 12.9 [facility] LABORATORY nRBC % Auto 0.0 % [facility] LABORATORY nRBC Abs Auto 0.000 0.000 - [facility] 0.000 [facility] x10(3)/[facility] LABORATORY Specimen Anatomical Collection Method Collection Time Receive d Time (Source) Location / / Volume Laterality Blood specimen 08/15/2017 6:22 AM 018 6:33 (specimen) EST AM EST Resulting Agency Comment Spec In Lab Yonathan Smith MD HEMATOLOGY ORDERABLES Performing Organization Address City/State/ZIP [place] [address] (ABNORMAL) Basic Metabolic Panel (non-fasting) (08/15/2017 6:22 AM EST) athologist Signature Glucose Lvl 118 65 - 199 [facility] mg/dL [facility] LABORATORY [...] [facility] LABORATORY Estimated GFR >60 >=60 [facility] LABORATORY Comment: The reported eGFR should be multiplied b y 1.2 for patients. The MDRD is not an appropriate measure o f renal function for patients with body mass extremes or in patients with acute kidney failure. [email or web address] Specimen Anatomical Collection Method Collection Time Receive d Time (Source) Location / / Volume Laterality Blood specimen 08/15/2017 6:22 AM 018 6:33 (specimen) EST AM EST Resulting Agency Comment Spec In Lab Yonathan Smith MD CHEMISTRY ORDERABLES Performing Organization Address City/[facility]/[place] [address] (ABNORMAL) Prothrombin Time (08/15/2017 [...] Smith MD HEMATOLOGY ORDERABLES Performing Organization Address City/[facility]/[place] [address] POCT Glucose (08/15/2017 4:33 AM EST) P athologist Signature POC Glucose 164 65 - 199 [facility] mg/dL [facility] LABORATORY [...] City/[facility]/[place] [address] POCT Glucose (08/15/2017 12:12 AM EST) athologist Signature POC Glucose 89 65 - 199 [facility] mg/dL [facility] LABORATORY Comment: [...] Organization Address City/State/[place] [address] (ABNORMAL) POCT Glucose (08/14/2017 8:07 PM EST) athologist Signature POC Glucose 204 (H) 65 - 199 [facility] LABORATORY Comment: [...] Organization Address City/State/[place] [address] POCT Glucose (08/14/2017 5:11 PM EST) athologist Signature POC Glucose 174 65 - 199 [facility] mg/dL [facility] LABORATORY Comment: [...] Organization Address City/State/[place] [address] POCT Glucose (08/14/2017 12:10 PM EST) athologist Signature POC Glucose 141 65 - 199 [facility] mg/dL [facility] LABORATORY Comment: [...] Organization Address City/State/ZIP Code Phon e Number [address] POCT Glucose (08/14/2017 8:07 AM EST) athologist Signature POC Glucose 158 65 - 199 [facility] mg/dL [facility] LABORATORY Comment: [...] Organization Address City/State/ZIP Code Phon e Number [address] (ABNORMAL) Differential, Automated (08/14/2017 4:52 AM EST) [facility] gist Method Time Signature Neutrophils % 78.6 % [facility] LABORATORY Neutr Abs (ANC) 7.70 (H) 1.70 - [facility] 6.10 [facility] x10(3)/[facility] L LABORATORY Lymphocytes % 7.8 % [facility] LABORATORY Lymphocytes Abs 0.8 (L) 0.9 - 3.2 [facility] x10(3)/[facility] LABORATORY Monocytes % 8.8 % [facility] LABORATORY Monocyte Abs 0.9 0.3 - 0.9 [facility] x10(3)/[facility] LABORATORY Eosinophils % 4.0 % [facility] LABORATORY Eosinophils Abs 0.4 0.0 - 0.4 [facility] x10(3)/[facility] LABORATORY Basophils % 0.5 % [facility] LABORATORY Basophils Abs 0.0 0.0 - 0.1 [facility] x10(3)/[facility] LABORATORY Immature Gran % 0.30 % [...] Melisa Gran Abs 0.03 0.00 - 0.04 x10(3)/[facility] LABORATORY Specimen Anatomical Collection Method Collection Time Receive d Time (Source) Location / / Volume Laterality Blood specimen 08/14/2017 4:52 AM 018 5:08 (specimen) EST AM EST Resulting Agency Comment Spec In Lab Yonathan Smith MD HEMATOLOGY ORDERABLES Performing Organization Address City/State/Z[place] [address] (ABNORMAL) Hemogram (08/14/2017 4:52 AM EST) Analysis Performed At Patho logist Time Signature WBC 9.8 (H) 4.0 - 9.5 [facility] x10(3)/[facility] LABORATORY RBC 3.32 (L) 4.58 - [facility] 5.54 [facility] x10(6)/[facility] LABORATORY Hemoglobin 9.5 (L) 13.7 - [facility] 16.5 gm/dL [facility] LABORATORY Hematocrit 30.3 (L) 40.5 - [facility] 48.5 % [facility] LABORATORY MCV 91.3 82.9 - [facility] 93.1 fL [facility] LABORATORY MCH 28.6 27.5 - [place] [facility] 32.1 pg [facility] LABORATORY MCHC 31.4 (L) 32.0 - [facility] 35.7 gm/dL [facility] LABORATORY Platelets 263 145 - 357 [facility] x10(3)/[facility] LABORATORY RDWSD 54.8 (H) 36.0 - [facility] 45.0 [facility] LABORATORY RDWCV 16.5 (H) 11.4 - [facility] 13.8 % [facility] LABORATORY MPV 9.1 7.6 - 12.9 [facility] LABORATORY nRBC % Auto 0.0 % [facility] LABORATORY nRBC Abs Auto 0.000 0.000 - [facility] 0.000 [facility] x10(3)/[facility] LABORATORY Specimen Anatomical Collection Method Collection Time Receive d Time (Source) Location / / Volume Laterality Blood specimen 08/14/2017 4:52 AM 018 5:08 (specimen) EST AM EST Resulting Agency Comment Spec In Lab Yonathan Smith MD HEMATOLOGY ORDERABLES Performing Organization Address City/[facility] [place] [address] (ABNORMAL) Prothrombin Time (08/14/2017 [...] Smith MD HEMATOLOGY ORDERABLES Performing Organization Address City/[facility] [place] [address] (ABNORMAL) Basic Metabolic Panel (non-fasting) (08/14/2017 4:52 AM EST) P athologist Signature Glucose Lvl 135 65 - 199 [facility] mg/dL [facility] LABORATORY [...] or in patients with acute kidney failure. [email or web address] Specimen Anatomical Collection Method Collection Time Receive d Time (Source) Location / / Volume Laterality Blood specimen 08/14/2017 4:52 AM 018 5:08 (specimen) EST AM EST Resulting Agency Comment Spec In Lab Yonathan Smith MD CHEMISTRY ORDERABLES Performing Organization Address City/State/ZIP [place] [address] POCT Glucose (08/14/2017 3:56 AM EST) P athologist Signature POC Glucose 135 65 - 199 [facility] mg/dL [facility] LABORATORY [...] Organization Address City/State/[place] [address] POCT Glucose (08/13/2017 11:13 PM EST) athologist Signature POC Glucose 118 65 - 199 [facility] mg/dL [facility] LABORATORY Comment: [...] City/[facility]/[place] [address] (ABNORMAL) POCT Glucose (08/13/2017 8:08 PM EST) athologist Signature POC Glucose 204 (H) 65 - 199 [facility] mg/dL [facility] LABORATORY Comment: [...] Organization Address City/State/[place] [address] POCT Glucose (08/13/2017 4:02 PM EST) athologist Signature POC Glucose 145 65 - 199 [facility] mg/dL [facility] LABORATORY Comment: [...] Organization Address City/State/ZIP Code Phon e Number [address] POCT Glucose (08/13/2017 11:31 AM EST) athologist Signature POC Glucose 179 65 - 199 [facility] mg/dL [facility] LABORATORY Comment: [...] City/[facility]/[place] [address] (ABNORMAL) POCT Glucose (08/13/2017 10:16 AM EST) athologist Signature POC Glucose 211 (H) 65 - 199 [facility] mg/dL [facility] LABORATORY Comment: [...] Organization Address City/State/ZIP Code Phon e Number [address] JULIAN, legs, multiple levels (08/13/2017 7:42 AM EST) Component Value Ref Test Analysis Performed At [facility] gist Range Method Time Signature VB Text Department: Vascular Surgery Lab VASCUBASE Report Patient: [id number] (GREGORY HOANG) CPT: 92036 ICD10: I99.8 Referring Physician: YONATHAN SMITH ?? Indications: s/p R 1,2,3 toe amps with red left foot, need n ew baseline Diabetes mellitus: yes ICD10 Diagnosis Code: I99.8 Findings: Right ?Pressure (mm Hg) ?? JULIAN ??Waveform ?TBI ?? Brachial Artery ?138 ? Dorsalis Pedis (Ankle) Arter y ?132 ? 0.94 ??[place]osco- Biphasic ? Posterior Tibial (Ankle) Art anila ??154 ? 1.10 ??[place]osco-Biphasic ? Fourth Toe ? 67 ? 0.48 [...] 156 65 - 199 [facility] mg/dL [facility] LABORATORY Comment: [...] Organization Address City/State/Z[place] [address] (ABNORMAL) Differential, Automated (08/13/2017 5:33 AM EST) [facility] Method Time Signature Neutrophils % 77.8 % [facility] LABORATORY Neutr Abs (ANC) 7.83 (H) 1.70 - [facility] 6.10 [facility] x10(3)/[facility] LABORATORY Lymphocytes % 8.4 % [facility] LABORATORY Lymphocytes Abs 0.8 (L) 0.9 - 3.2 [facility] x10(3)/[facility] LABORATORY Monocytes % 8.3 % [facility] LABORATORY Monocyte Abs 0.8 0.3 - 0.9 [facility] x10(3)/[facility] LABORATORY Eosinophils % 4.6 % [facility] LABORATORY Eosinophils Abs 0.5 (H) 0.0 - 0.4 [facility] x10(3)/[facility] LABORATORY Basophils % 0.5 % [facility] LABORATORY Basophils Abs 0.0 0.0 - 0.1 [facility] x10(3)/[facility] LABORATORY Immature Gran % 0.40 % [...] 0.04 0.00 - 0.04 x10(3)/[facility] LABORATORY Specimen Anatomical Collection Method Collection Time Receive d Time (Source) Location / / Volume Laterality Blood specimen 08/13/2017 5:33 AM 01/19/2 018 6:04 (specimen) EST AM EST Resulting Agency Comment Spec In Lab Yonathan Smith MD HEMATOLOGY ORDERABLES Performing Organization Address City/State/ZIP Code Phon e Number [address] (ABNORMAL) Hemogram (08/13/2017 5:33 AM EST) Analysis Performed At Patho logist Time Signature WBC 10.1 (H) 4.0 - 9.5 [facility] x[facility](3)/[facility] LABORATORY RBC 3.21 (L) 4.58 - [place] [facility] 5.54 [facility] x10(6)/[facility] LABORATORY Hemoglobin 9.2 (L) 13.7 - [facility] 16.5 gm/dL [facility] LABORATORY Hematocrit 29.6 (L) 40.5 - [facility] 48.5 % [facility] LABORATORY MCV 92.2 82.9 - [facility] 93.1 [facility] LABORATORY MCH 28.7 27.5 - [place] [facility] 32.1 pg [facility] LABORATORY MCHC 31.1 (L) 32.0 - [facility] 35.7 gm/dL [facility] LABORATORY Platelets 263 145 - 357 [facility] x10(3)/[facility] LABORATORY RDWSD 54.8 (H) 36.0 - [place] [facility] 45.0 [facility] LABORATORY RDWCV 16.4 (H) 11.4 - [facility] 13.8 % [facility] LABORATORY MPV 9.2 7.6 - 12.9 [facility] LABORATORY nRBC % Auto 0.0 % [facility] LABORATORY nRBC Abs Auto 0.000 0.000 - [place] [facility] 0.000 [facility] x10(3)/[facility] LABORATORY Specimen Anatomical Collection Method Collection Time Receive d Time (Source) Location / / Volume Laterality Blood specimen 08/13/2017 5:33 AM 018 6:04 (specimen) EST AM EST Resulting Agency Comment Spec In Lab Yonathan Smith MD HEMATOLOGY ORDERABLES Performing Organization Address City/State/[place] [address] (ABNORMAL) Prothrombin Time (08/13/2017 [...] Organization Address City/State/[place] [address] (ABNORMAL) Basic Metabolic Panel (non-fasting) (08/13/2017 5:33 AM EST) athologist Signature Glucose Lvl 126 65 - 199 [facility] mg/dL [facility] LABORATORY [...] [facility] LABORATORY Estimated GFR >60 >=60 [facility] LABORATORY Comment: The reported eGFR should be multiplied b y 1.2 for patients. The MDRD is not an appropriate measure o f renal function for patients with body mass extremes or in patients with acute kidney failure. [email or web address] Specimen Anatomical Collection Method Collection Time Receive d Time (Source) Location / / Volume Laterality Blood specimen 08/13/2017 5:33 AM 018 6:04 (specimen) EST AM EST Resulting Agency Comment Spec In Lab Yonathan Smith MD CHEMISTRY ORDERABLES Performing Organization Address City/[facility]/ZIP Code Phon e Number [address] POCT Glucose (08/13/2017 4:29 AM EST) athologist Signature POC Glucose 111 65 - 199 [facility] mg/dL [facility] LABORATORY Comment: [...] Organization Address City/State/ZIP Code Phon e Number [address] POCT Glucose (08/12/2017 11:28 PM EST) athologist Signature POC Glucose 164 65 - 199 [facility] mg/dL [facility] LABORATORY Comment: [...] Organization Address City/State/ZIP Code Phon e Number [address] (ABNORMAL) POCT Glucose (08/12/2017 7:40 PM EST) athologist Signature POC Glucose 209 (H) 65 - 199 [facility] mg/dL [facility] LABORATORY Comment: [...] City/[facility]/[place] [address] POCT Glucose (08/12/2017 4:24 PM EST) athologist Signature POC Glucose 161 65 - 199 [facility] mg/dL [facility] LABORATORY Comment: [...] City/[facility]/[place] [address] POCT Glucose (08/12/2017 12:00 PM EST) athologist Signature POC Glucose 167 65 - 199 [facility] mg/dL [facility] LABORATORY Comment: [...] Organization Address City/State/ZIP Code Phon e Number [address] POCT Glucose (08/12/2017 7:25 AM EST) P athologist Signature POC Glucose 152 65 - 199 [facility] mg/dL [facility] LABORATORY Comment: [...] City/[facility]/ZIP Code Phon e Number [address] (ABNORMAL) Differential, Automated (08/12/2017 6:29 AM EST) Patholo gist Method Time Signature Neutrophils % 78.7 % [facility] LABORATORY Neutr Abs (ANC) 7.94 (H) 1.70 - [facility] 6.10 [facility] x10(3)/[facility] LABORATORY Lymphocytes % 8.8 % [facility] LABORATORY Lymphocytes Abs 0.9 0.9 - 3.2 [facility] x10(3)/[facility] LABORATORY Monocytes % 7.8 % [facility] LABORATORY Monocyte Abs 0.8 0.3 - 0.9 [facility] x10(3)/[facility] LABORATORY Eosinophils % 3.9 % [facility] LABORATORY Eosinophils Abs 0.4 0.0 - 0.4 [facility] x10(3)/[facility] LABORATORY Basophils % 0.3 % [facility] LABORATORY Basophils Abs 0.0 0.0 - 0.1 [facility] x10(3)/[facility] LABORATORY Immature Gran % 0.50 % [...] 0.05 (H) 0.00 - 0.04 x10(3)/[facility] LABORATORY Specimen Anatomical Collection Method Collection Time Receive d Time (Source) Location / / Volume Laterality Blood specimen 08/12/2017 6:29 AM 018 6:38 (specimen) EST AM EST Resulting Agency Comment Spec In Lab Yonathan Smith MD HEMATOLOGY ORDERABLES Performing Organization Address City/State/Z[place] [address] (ABNORMAL) Hemogram (08/12/2017 6:29 AM EST) Analysis Performed At Patho logist Time Signature WBC 10.1 (H) 4.0 - 9.5 [facility] x10(3)/[facility] LABORATORY RBC 3.02 (L) 4.58 - [facility] 5.54 [facility] x10(6)/[facility] LABORATORY Hemoglobin 8.7 (L) 13.7 - [facility] 16.5 gm/dL [facility] LABORATORY Hematocrit 28.1 (L) 40.5 - [facility] 48.5 % [facility] LABORATORY MCV 93.0 82.9 - [facility] 93.1 [facility] LABORATORY MCH 28.8 27.5 - [facility] 32.1 pg [facility] LABORATORY MCHC 31.0 (L) 32.0 - [facility] 35.7 gm/dL [facility] LABORATORY Platelets 223 145 - 357 [facility] x10(3)/[facility] LABORATORY RDWSD 56.1 (H) 36.0 - [facility] 45.0 [facility] LABORATORY RDWCV 16.4 (H) 11.4 - [facility] 13.8 % [facility] LABORATORY MPV 9.0 7.6 - 12.9 [facility] LABORATORY nRBC % Auto 0.0 % [facility] LABORATORY nRBC Abs Auto 0.000 0.000 - [facility] 0.000 [facility] x10(3)/[facility] LABORATORY Specimen Anatomical Collection Method Collection Time Receive d Time (Source) Location / / Volume Laterality Blood specimen 08/12/2017 6:29 AM 018 6:38 (specimen) EST AM EST Resulting Agency Comment Spec In Lab Yonathan Smith MD HEMATOLOGY ORDERABLES Performing Organization Address City/[facility]/[place] [address] (ABNORMAL) Prothrombin Time (08/12/2017 [...] Smith MD HEMATOLOGY ORDERABLES Performing Organization Address City/[facility]/ZIP [facility] [place] [address] (ABNORMAL) Basic Metabolic Panel (non-fasting) (08/12/2017 6:29 AM EST) athologist Signature Glucose Lvl 151 65 - 199 [facility] mg/dL [facility] LABORATORY [...] [facility] LABORATORY Estimated GFR >60 >=60 [facility] LABORATORY Comment: The reported eGFR should be multiplied b y 1.2 for patients. The MDRD is not an appropriate measure o f renal function for patients with body mass extremes or in patients with acute kidney failure. [email or web address] Specimen Anatomical Collection Method Collection Time Receive d Time (Source) Location / / Volume Laterality Blood specimen 08/12/2017 6:29 AM 018 6:38 (specimen) EST AM EST Resulting Agency Comment Spec In Lab Yonathan Smith MD CHEMISTRY ORDERABLES Performing Organization Address City/[facility]/ZIP Code Phon e Number [address] POCT Glucose (08/12/2017 4:08 AM EST) P athologist Signature POC Glucose 181 65 - 199 [facility] mg/dL [facility] LABORATORY [...] City/[facility]/[place] [address] (ABNORMAL) POCT Glucose (08/12/2017 12:17 AM EST) athologist Signature POC Glucose 221 (H) 65 - 199 [facility] mg/dL [facility] LABORATORY Comment: [...] Organization Address City/State/[place] [address] (ABNORMAL) POCT Glucose (08/11/2017 8:52 PM EST) athologist Signature POC Glucose 221 (H) 65 - 199 [facility] Comment: [...] Organization Address City/State/[place] [address] POCT Glucose (08/11/2017 5:59 PM EST) athologist Signature POC Glucose 169 65 - 199 [facility] mg/dL [facility] Comment: [...] Organization Address City/State/[place] [address] (ABNORMAL) POCT Glucose (08/11/2017 4:08 PM EST) athologist Signature POC Glucose 240 (H) 65 - 199 BARBAR[place] ZHAORYAN mg/dL [facility] Comment: [...] Organization Address City/State/[place] [address] POCT Glucose (08/11/2017 12:04 PM EST) athologist Signature POC Glucose 182 65 - 199 [facility] RYAN mg/dL [facility] Comment: [...] Organization Address City/State/[place] [address] POCT Glucose (08/11/2017 7:31 AM EST) athologist Signature POC Glucose 156 65 - 199 [place] RYAN mg/dL [facility] Comment: [...] Organization Address City/State/[place] [address] (ABNORMAL) Differential, Automated (08/11/2017 6:16 AM EST) Patholo gist Method Time Signature Neutrophils % 83.7 % [facility] LABORATORY Neutr Abs (ANC) 10.76 (H) 1.70 - [facility] 6.10 [facility] x10(3)/[facility] L LABORATORY Lymphocytes % 6.0 % [facility] LABORATORY Lymphocytes Abs 0.8 (L) 0.9 - 3.2 [facility] x10(3)/[facility] LABORATORY Monocytes % 7.5 % [facility] LABORATORY Monocyte Abs 1.0 (H) 0.3 - 0.9 [facility] x10(3)/[facility] LABORATORY Eosinophils % 2.0 % [facility] LABORATORY Eosinophils Abs 0.3 0.0 - 0.4 [facility] x10(3)/[facility] LABORATORY Basophils % 0.3 % [facility] LABORATORY Basophils Abs 0.0 0.0 - 0.1 [place] 367650(3)/[facility] LABORATORY Immature Gran % 0.50 % [...] Organization Address City/State/[place] [address] (ABNORMAL) Hemogram (08/11/2017 6:16 AM EST) [facility] Signature WBC 12.9 (H) 4.0 - 9.5 [facility] x10(3)/[facility] LABORATORY RBC 3.28 (L) 4.58 - [facility] 5.54 [facility] x10(6)/[facility] LABORATORY Hemoglobin 9.5 (L) 13.7 - [facility] 16.5 gm/dL [facility] LAB[facility]ORY Hematocrit 29.8 (L) 40.5 - [facility] 48.5 % [facility] LABORATORY MCV 90.9 82.9 - [facility] 93.1 [facility] LABORATORY MCH 29.0 27.5 - [facility] 32.1 pg [facility] LABORATORY MCHC 31.9 (L) 32.0 - [facility] 35.7 gm/dL [facility] LABORATORY Platelets 236 145 - 357 [facility] x10(3)/[facility] LABORATORY RDWSD 53.5 (H) 36.0 - [facility] 45.0 [facility] LABORATORY RDWCV 16.3 (H) 11.4 - [facility] 13.8 % [facility] LABORATORY MPV 8.8 7.6 - 12.9 [facility] LABORATORY nRBC % Auto 0.0 % [facility] LABORATORY nRBC Abs Auto 0.000 0.000 - [facility] 0.000 [facility] x10(3)/[facility] LABORATORY Specimen Anatomical Collection Method Collection Time Receive d Time (Source) Location / / Volume Laterality Blood specimen 08/11/2017 6:16 AM 018 6:24 (specimen) EST AM EST Resulting Agency Comment Spec In Lab Yonathan Smith MD HEMATOLOGY ORDERABLES Performing Organization Address City/State/[place] [address] (ABNORMAL) Prothrombin Time (08/11/2017 [...] Organization Address City/State/[place] [address] Basic Metabolic Panel (non-fasting) (08/11/2017 6:16 AM EST) athologist Signature Glucose Lvl 139 65 - 199 [facility] mg/dL [facility] LABORATORY [...] [facility] LABORATORY Estimated GFR >60 >=60 [facility] LABORATORY Comment: The reported eGFR should be multiplied b y 1.2 for patients. The MDRD is not an appropriate measure o f renal function for patients with body mass extremes or in patients with acute kidney failure. [email or web address]/nkdep [email or web address] Specimen Anatomical Collection Method Collection Time Receive d Time (Source) Location / / Volume Laterality Blood specimen 08/11/2017 6:16 AM 018 6:24 (specimen) EST AM EST Resulting Agency Comment Spec In Lab Yonathan Smith MD CHEMISTRY ORDERABLES Performing Organization Address City/[facility]/ZIP Code Phon e Number [address] POCT Glucose (08/11/2017 4:07 AM EST) athologist Signature POC Glucose 162 65 - 199 [place] RYAN mg/dL [facility] LABORATORY Comment: [...] City/[facility]/ZIP Code Phon e Number [address] POCT Glucose (08/10/2017 11:59 PM EST) athologist Signature POC Glucose 166 65 - 199 [place] RYAN mg/dL [facility] LABORATORY Comment: [...] City/[facility]/ZIP Code Phon e Number [address] POCT Glucose (08/10/2017 8:12 PM EST) athologist Signature POC Glucose 156 65 - 199 [place] RYAN mg/dL [facility] LAB[facility] Comment: [...] City/[facility]/[place] [address] (ABNORMAL) POCT Glucose (08/10/2017 4:42 PM EST) P athologist Signature POC Glucose 211 (H) 65 - 199 [facility] mg/dL [facility] Comment: [...] City/[facility]/[place] [address] (ABNORMAL) Differential, Automated (08/10/2017 2:30 PM EST) Patholo gist Method Time Signature Neutrophils % 87.6 % [facility] LABORATORY Neutr Abs (ANC) 9.90 (H) 1.70 - [facility] 6.10 [facility] x10(3)/[facility] L LABORATORY Lymphocytes % 4.3 % [facility] LABORATORY Lymphocytes Abs 0.5 (L) 0.9 - 3.2 [facility] x10(3)/[facility] LABORATORY Monocytes % 6.0 % [facility] LABORATORY Monocyte Abs 0.7 0.3 - 0.9 [facility] x10(3)/[facility] LABORATORY Eosinophils % 1.1 % [facility] LABORATORY Eosinophils Abs 0.1 0.0 - 0.4 [facility] x10(3)/[facility] LABORATORY Basophils % 0.4 % [facility] LABORATORY Basophils Abs 0.0 0.0 - 0.1 [facility] x10(3)/[facility] LABORATORY Immature Gran % 0.60 % [...] 0.07 (H) 0.00 - 0.04 x10(3)/[facility] LABORATORY Specimen Anatomical Collection Method Collection Time Receive d Time (Source) Location / / Volume Laterality Blood specimen 08/10/2017 2:30 PM 018 2:48 (specimen) EST PM EST Resulting Agency Comment Spec In Lab Yonathan Smith MD HEMATOLOGY ORDERABLES Performing Organization Address City/State/[place] [address] (ABNORMAL) Hemogram (08/10/2017 2:30 PM EST) Analysis Performed At Patho logist Time Signature WBC 11.3 (H) 4.0 - 9.5 [facility] x10(3)/[facility] LABORATORY RBC 3.13 (L) 4.58 - [facility] 5.54 [facility] x10(6)/[facility] LABORATORY Hemoglobin 8.9 (L) 13.7 - [facility] 16.5 gm/dL [facility] LABORATORY Hematocrit 28.4 (L) 40.5 - [facility] 48.5 % [facility] LABORATORY MCV 90.7 82.9 - [facility] 93.1 [facility] LABORATORY MCH 28.4 27.5 - [facility] 32.1 pg [facility] LABORATORY MCHC 31.3 (L) 32.0 - [facility] 35.7 gm/dL [facility] LABORATORY Platelets 213 145 - 357 [facility] x10(3)/[facility] RDWSD 53.7 (H) 36.0 - [facility] 45.0 [facility] RDWCV 16.4 (H) 11.4 - [facility] 13.8 % [facility] LABORATORY MPV 8.9 7.6 - 12.9 [facility] LABORATORY nRBC % Auto 0.0 % [facility] LABORATORY nRBC Abs Auto 0.000 0.000 - [facility] 0.000 [facility] x10(3)/[facility] LABORATORY Specimen Anatomical Collection Method Collection Time Receive d Time (Source) Location / / Volume Laterality Blood specimen 08/10/2017 2:30 PM 018 2:48 (specimen) EST PM EST Resulting Agency Comment Spec In Lab Yonathan Smith MD HEMATOLOGY ORDERABLES Performing Organization Address City/State/[place] [address] (ABNORMAL) POCT Glucose (08/10/2017 1:50 PM EST) athologist Signature POC Glucose 243 (H) 65 - 199 [facility] mg/dL [facility] Comment: [...] Organization Address City/State/[place] [address] POCT Glucose (08/10/2017 11:21 AM EST) athologist Signature POC Glucose 156 65 - 199 [facility] mg/dL [facility] Comment: [...] Organization Address City/State/[place] [address] (ABNORMAL) Differential, Automated (08/10/2017 10:28 AM EST) Patholo gist Method Time Signature Neutrophils % 85.3 % [facility] LABORATORY Neutr Abs (ANC) 9.43 (H) 1.70 - [facility] 6.10 [facility] x10(3)/[facility] L LABORATORY Lymphocytes % 5.5 % [facility] LABORATORY Lymphocytes Abs 0.6 (L) 0.9 - 3.2 [facility] x10(3)/[facility] LABORATORY Monocytes % 5.9 % [facility] LABORATORY Monocyte Abs 0.6 0.3 - 0.9 [facility] x10(3)/[facility] LABORATORY Eosinophils % 2.1 % [facility] LABORATORY Eosinophils Abs 0.2 0.0 - 0.4 [facility] x10(3)/[facility] LABORATORY Basophils % 0.4 % [facility] LABORATORY Basophils Abs 0.0 0.0 - 0.1 [facility] x10(3)/[facility] LABORATORY Immature Gran % 0.80 % [...] 0.09 (H) 0.00 - 0.04 x10(3)/[facility] LABORATORY Specimen Anatomical Collection Method Collection Time Receive d Time (Source) Location / / Volume Laterality Blood specimen 08/10/2017 10:28 8 (specimen) AM EST 10:35 AM EST Resulting Agency Comment Spec In Lab Yonathan Smith MD HEMATOLOGY ORDERABLES Performing Organization Address City/State/Z[place] [address] (ABNORMAL) Hemogram (08/10/2017 10:28 AM EST) Analysis [facility] Time Signature WBC 11.0 (H) 4.0 - 9.5 [facility] x10(3)/[facility] LABORATORY RBC 3.02 (L) 4.58 - [place] ZHA[place] 5.54 [facility] x10(6)/[facility] LABORATORY Hemoglobin 8.8 (L) 13.7 - [place] ZHAORYAN 16.5 gm/dL [facility] LABORATORY Hematocrit 28.1 (L) 40.5 - [place] 48.5 % [facility] LABORATORY MCV 93.0 82.9 - [facility] 93.1 [facility] LABORATORY MCH 29.1 27.5 - [place] ZHAORYAN 32.1 pg [facility] LABORATORY MCHC 31.3 (L) 32.0 - [place] ZHAORY[place] 35.7 gm/dL [facility] LABORATORY Platelets 207 145 - 357 [facility] x10(3)/[facility] LABORATORY RDWSD 55.3 (H) 36.0 - [place] ZHAORYAN 45.0 [facility] LABORATORY RDWCV 16.4 (H) 11.4 - [facility] 13.8 % [facility] LABORATORY MPV 9.0 7.6 - 12.9 [facility] LABORATORY nRBC % Auto 0.0 % [facility] LABORATORY nRBC Abs Auto 0.000 0.000 - [facility] 0.000 [facility] x10(3)/[facility] LABORATORY Specimen Anatomical Collection Method Collection Time Receive d Time (Source) Location / / Volume Laterality Blood specimen 08/10/2017 10:28 8 (specimen) AM EST 10:35 AM EST Resulting Agency Comment Spec In Lab Yonathan Smith MD HEMATOLOGY ORDERABLES Performing Organization Address City/State/Z[place] [address] VS Angiogram/intervention (vascular) (08/10/2017 [...] 2.5x80 5. Completion RLE angiogram 6. L YARN SPOOLER angiogram 7. 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 L YARN SPOOLER access in the distal L YARN SPOOLER. - Closure device: Mynx Technical Procedure: ?The [...] for a 45cm 5F Destination. V18 and Knott a nd QuickCross catheters were used to [...] bifurcation. Access appeared in the distal R YARN SPOOLER. Closure and sheath removal was performed with [...] 2.5x80 5. Completion RLE angiogram 6. L YARN SPOOLER angiogram 7. 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 L YARN SPOOLER access in the distal L YARN SPOOLER. - Closure device: Mynx Technical Procedure: The [...] for a 45cm 5F Destination. V18 and Knott a nd QuickCross catheters were used to [...] bifurcation. Access appeared in the distal R YARN SPOOLER. Closure and sheath removal was performed with [...] (ABNORMAL) Differential, Automated (08/10/2017 5:50 AM EST) [facility] Method Time Signature Neutrophils % 80.1 % [facility] LABORATORY Neutr Abs (ANC) 9.01 (H) 1.70 - [facility] 6.10 [facility] x10(3)/[facility] L LABORATORY Lymphocytes % 8.8 % [facility] LABORATORY Lymphocytes Abs 1.0 0.9 - 3.2 [facility] x10(3)/[facility] LABORATORY Monocytes % 8.3 % [facility] LABORATORY Monocyte Abs 0.9 0.3 - 0.9 [facility] x10(3)/[facility] LABORATORY Eosinophils % 2.0 % [facility] LABORATORY Eosinophils Abs 0.2 0.0 - 0.4 [facility] x10(3)/[facility] LABORATORY Basophils % 0.4 % [facility] LABORATORY Basophils Abs 0.0 0.0 - 0.1 [facility] x10(3)/[facility] LABORATORY Immature Gran % 0.40 % [...] 0.05 (H) 0.00 - 0.04 x10(3)/[facility] LABORATORY Specimen Anatomical Collection Method Collection Time Receive d Time (Source) Location / / Volume Laterality Blood specimen 08/10/2017 5:50 AM 018 5:59 (specimen) EST AM EST Resulting Agency Comment Spec In Lab Yonathan Smith MD HEMATOLOGY ORDERABLES Performing Organization Address City/State/Z[place] [address] (ABNORMAL) Hemogram (08/10/2017 5:50 AM EST) Analysis Performed At Patho logist Time Signature WBC 11.3 (H) 4.0 - 9.5 [facility] x10(3)/[facility] LABORATORY RBC 3.15 (L) 4.58 - [facility] 5.54 [facility] x10(6)/[facility] LABORATORY Hemoglobin 8.9 (L) 13.7 - [facility] 16.5 gm/dL [facility] LABORATORY Hematocrit 29.0 (L) 40.5 - [facility] 48.5 % [facility] LABORATORY MCV 92.1 82.9 - [facility] 93.1 fL [facility] LABORATORY MCH 28.3 27.5 - [facility] 32.1 pg [facility] LABORATORY MCHC 30.7 (L) 32.0 - [facility] 35.7 gm/dL [facility] LABORATORY Platelets 231 145 - 357 [facility] x10(3)/[facility] LABORATORY RDWSD 53.9 (H) 36.0 - [facility] 45.0 [facility] LABORATORY RDWCV 16.2 (H) 11.4 - [facility] 13.8 % [facility] LABORATORY MPV 8.7 7.6 - 12.9 [facility] LABORATORY nRBC % Auto 0.0 % [facility] LABORATORY nRBC Abs Auto 0.000 0.000 - [facility] 0.000 [facility] x10(3)/[facility] LABORATORY Specimen Anatomical Collection Method Collection Time Receive d Time (Source) Location / / Volume Laterality Blood specimen 08/10/2017 5:50 AM 018 5:59 (specimen) EST AM EST Resulting Agency Comment Spec In Lab Yonathan Smith MD HEMATOLOGY ORDERABLES Performing Organization Address City/State/[place] [address] (ABNORMAL) Basic Metabolic Panel (non-fasting) (08/10/2017 5:50 AM EST) athologist Signature Glucose Lvl 135 65 - 199 [facility] mg/dL [facility] LABORATORY [...] [facility] LABORATORY Estimated GFR >60 >=60 [facility] LABORATORY Comment: The reported eGFR should be multiplied b y 1.2 for patients. The MDRD is not an appropriate measure o f renal function for patients with body mass extremes or in patients with acute kidney failure. [email or web address]/DHnkdep [email or web address] Specimen Anatomical Collection Method Collection Time Receive d Time (Source) Location / / Volume Laterality Blood specimen 08/10/2017 5:50 AM 018 5:59 (specimen) EST AM EST Resulting Agency Comment Spec In Lab Yonathan Smith MD CHEMISTRY ORDERABLES Performing Organization Address City/[facility] [place] [address] (ABNORMAL) Prothrombin Time (08/10/2017 [...] Smith MD HEMATOLOGY ORDERABLES Performing Organization Address City/[facility] [place] [address] (ABNORMAL) POCT Glucose (08/10/2017 4:01 AM EST) P athologist Signature POC Glucose 206 (H) 65 - 199 [facility] mg/dL [facility] LABORATORY [...] Organization Address City/State/[place] [address] POCT Glucose (08/10/2017 2:01 AM EST) athologist Signature POC Glucose 188 65 - 199 [place]HAORY[place] mg/dL [facility] LABORATORY Comment: [...] Organization Address City/State/[place] [address] (ABNORMAL) POCT Glucose (08/09/2017 11:42 PM EST) athologist Signature POC Glucose 283 (H) 65 - 199 [place] mg/dL [facility] LABORATORY Comment: [...] Organization Address City/State/ZIP Code Phon e Number [address] POCT Glucose (08/09/2017 8:55 PM EST) athologist Signature POC Glucose 182 65 - 199 [place] mg/dL [facility] LABORATORY Comment: [...] City/[facility]/[place] [address] (ABNORMAL) APTT (08/09/2017 6:42 [...] Smith MD HEMATOLOGY ORDERABLES Performing Organization Address City/[facility]/[place] [address] POCT Glucose (08/09/2017 4:41 PM EST) athologist Signature POC Glucose 195 65 - 199 [facility] LABORATORY Comment: [...] City/[facility]/ZIP Code Phon e Number [address] POCT Glucose (08/09/2017 12:29 PM EST) athologist Signature POC Glucose 140 65 - 199 [facility] mg/dL [facility] LABORATORY Comment: [...] City/[facility]/ZIP Code Phon e Number [address] POCT Glucose (08/09/2017 9:59 AM EST) P athologist Signature POC Glucose 135 65 - 199 [facility] mg/dL [facility] LABORATORY [...] City/[facility]/[place] [address] Specimen to Pathology (08/09/2017 [...] City/[facility]/[place] [address] Surgical Pathology Report (08/09/2017 8:40 AM EST) Component Value Ref Test Analysis Performed At Patholo gist Range Method Time Signature Surgical [id number] ? Location: [facility]; [facility]; A [facility] Pathology FLANAGAN Report The signing pathologist has (i) examined [...] Henrique Flower Verified: ??08/13/2017 ?Pathologist Performed at: ??-[facility] Dept. of Pathology, [place], [place] CLINICAL INFORMATION Specimen Submitted: A - [...] City/[facility]/[place] [address] Anaerobic Culture (08/09/2017 8:30 AM EST) [facility] Method Time Signature Anaerobic No anaerobic [facility] Culture organisms [facility] LABORATORY Specimen Anatomical Collection Method Collection Time Receive d Time (Source) Location / / Volume Laterality Specimen from STRUCTURE OF RIGHT 08/09/2017 8:30 AM 9:10 abscess FOOT / Unknown EST AM EST (specimen) Comment: SWAB RIGHT GREAT TOE ABSCESS FO R AEROBIC AND ANAEROBIC CULTURES. Resulting Agency Comment Spec In Lab Yonathan Smith MD MICROBIOLOGY - GENERAL ORDER [place] Performing Organization Address City/[facility]/[place] [address] (ABNORMAL) Abscess/Wound Aspirate Culture (08/09/2017 8:30 AM EST) [facility] Method Time Signature Abscess/Wound Moderate mixed [facility] Aspirate bacterial FLANAGAN Culture morphotypes [facility] normal LABORATORY cutaneous leroy (A) Gram Stain Rare White Blood Cells BARBARA Few Gram Positive Cocci in pairs FLANAGAN () [facility] LABORATORY Organism Gram Positive BARBARA Cocci in pairs FLANAGAN () [facility] LABORATORY Specimen Anatomical Collection Method Collection Time Receive d Time (Source) Location / / Volume Laterality Specimen from STRUCTURE OF RIGHT 08/09/2017 8:30 AM 9:10 abscess FOOT / Unknown EST AM EST (specimen) Comment: SWAB RIGHT GREAT TOE ABSCESS FO R AEROBIC AND ANAEROBIC CULTURES. Resulting Agency Comment Spec In Lab Yonathan Smith MD MICROBIOLOGY - GENERAL ORDER ROBSON Performing Organization Address City/[facility]/ZIP Code Phon e Number [address] POCT Glucose (08/09/2017 4:28 AM EST) P athologist Signature POC Glucose 128 65 - 199 [facility] mg/dL [facility] LABORATORY [...] Organization Address City/State/ZIP Code Phon e Number [address] ABORH Recheck Status (08/09/2017 1:10 AM EST) [facility] Method Time Signature ABORH Type Completed [facility] LABORATORY Specimen Anatomical Collection Method Collection Time Receive d Time (Source) Location / / Volume Laterality Blood specimen 08/09/2017 1:10 AM 018 1:35 (specimen) EST AM EST Resulting Agency Comment Spec In Lab Yonathan Smith MD BLOOD BANK ORDERABLES Performing Organization Address City/[facility]/[place] [address] Antibody screen (08/09/2017 1:10 AM EST) [facility] Method Time Signature Ab Screen Negative [facility] LABORATORY Expires at 08/12/2017 [facility] [id number] on: [facility] LABORATORY Specimen Anatomical Collection Method Collection Time Receive d Time (Source) Location / / Volume Laterality Blood specimen 08/09/2017 1:10 AM 018 1:35 (specimen) EST AM EST Resulting Agency Comment Spec In Lab Yonathan Smith MD BLOOD BANK ORDERABLES Performing Organization Address City/State/[place] [address] ABO/Rh Typing (08/09/2017 1:10 [...] Organization Address City/State/[place] [address] (ABNORMAL) APTT (08/09/2017 1:10 [...] Organization Address City/State/[place] [address] (ABNORMAL) Differential, Automated (08/09/2017 1:10 AM EST) Patholo gist Method Time Signature Neutrophils % 76.2 % [facility] LABORATORY Neutr Abs (ANC) 8.59 (H) 1.70 - [facility] 6.10 [facility] x10(3)/[facility] LABORATORY Lymphocytes % 11.0 % [facility] LABORATORY Lymphocytes Abs 1.2 0.9 - 3.2 [facility] x10(3)/[facility] LABORATORY Monocytes % 8.4 % [facility] LABORATORY Monocyte Abs 1.0 (H) 0.3 - 0.9 [facility] x10(3)/[facility] LABORATORY Eosinophils % 3.5 % [facility] LABORATORY Eosinophils Abs 0.4 0.0 - 0.4 [facility] x10(3)/[facility] LABORATORY Basophils % 0.5 % [facility] LABORATORY Basophils Abs 0.1 0.0 - 0.1 [facility] x10(3)/[facility] LABORATORY Immature Gran % 0.40 % [...] 0.05 (H) 0.00 - 0.04 x10(3)/[facility] LABORATORY Specimen Anatomical Collection Method Collection Time Receive d Time (Source) Location / / Volume Laterality Blood specimen 08/09/2017 1:10 AM 018 1:19 (specimen) EST AM EST Resulting Agency Comment Spec In Lab Yonathan Smith MD HEMATOLOGY ORDERABLES Performing Organization Address City/State/[place] [address] (ABNORMAL) Hemogram (08/09/2017 1:10 AM EST) Analysis Performed At Patho logist Time Signature WBC 11.3 (H) 4.0 - 9.5 [facility] LABORATORY RBC 3.47 (L) 4.58 - [facility] 5.54 [facility] x10(6)/[facility] LABORATORY Hemoglobin 10.0 (L) 13.7 - [facility] 16.5 gm/dL [facility] LABORATORY Hematocrit 31.9 (L) 40.5 - [facility] 48.5 % [facility] LABORATORY MCV 91.9 82.9 - [facility] 93.1 [facility] LABORATORY MCH 28.8 27.5 - [facility] 32.1 pg [facility] LABORATORY MCHC 31.3 (L) 32.0 - [facility] 35.7 gm/dL [facility] LABORATORY Platelets 234 145 - 357 [facility] x10(3[facility] LABORATORY RDWSD 54.0 (H) 36.0 - [facility] 45.0 [facility] LABORATORY RDWCV 16.2 (H) 11.4 - [facility] 13.8 % [facility] LABORATORY MPV 8.7 7.6 - 12.9 [facility] LABORATORY nRBC % Auto 0.0 % [facility] LABORATORY nRBC Abs Auto 0.000 0.000 - [facility] 0.000 [facility] x10(3)/[facility] LABORATORY Specimen Anatomical Collection Method Collection Time Receive d Time (Source) Location / / Volume Laterality Blood specimen 08/09/2017 1:10 AM 018 1:19 (specimen) EST AM EST Resulting Agency Comment Spec In Lab Yonathan Smith MD HEMATOLOGY ORDERABLES Performing Organization Address City/State/[place] [address] (ABNORMAL) Prothrombin Time (08/09/2017 [...] Organization Address City/State/[place] [address] (ABNORMAL) Basic Metabolic Panel (non-fasting) (08/09/2017 1:10 AM EST) athologist Signature Glucose Lvl 108 65 - 199 [facility] mg/dL [facility] LABORATORY [...] or in patients with acute kidney failure. [email or web address] Specimen Anatomical Collection Method Collection Time Receive d Time (Source) Location / / Volume Laterality Blood specimen 08/09/2017 1:10 AM 018 1:19 (specimen) EST AM EST Resulting Agency Comment Spec In Lab Yonathan Smith MD CHEMISTRY ORDERABLES Performing Organization Address City/State/[place] [address] POCT Glucose (08/09/2017 12:05 AM EST) P athologist Signature POC Glucose 128 65 - 199 [facility] mg/dL [facility] LABORATORY [...] Organization Address City/State/[place] [address] (ABNORMAL) POCT Glucose (08/08/2017 7:36 PM EST) athologist Signature POC Glucose 215 (H) 65 - 199 [facility] mg/dL [facility] LABORATORY Comment: [...] Organization Address City/State/[place] [address] (ABNORMAL) POCT Glucose (08/08/2017 6:23 PM EST) athologist Signature POC Glucose 216 (H) 65 - 199 [facility] mg/dL [facility] LABORATORY Comment: [...] Organization Address City/State/[place] [address] (ABNORMAL) APTT (08/08/2017 6:00 [...] Organization Address City/State/ZIP Code Phon e Number [address] POCT Glucose (08/08/2017 4:42 PM EST) athologist Signature POC Glucose 78 65 - 199 [facility] mg/dL [facility] LABORATORY Comment: [...] City/[facility]/[place] [address] (ABNORMAL) POCT Glucose (08/08/2017 4:01 PM EST) athologist Signature POC Glucose 58 (L) 65 - 199 [facility] mg/dL [facility] LABORATORY Comment: [...] City/[facility]/[place] [address] POCT Glucose (08/08/2017 11:51 AM EST) athologist Signature POC Glucose 90 65 - 199 [facility] mg/dL [facility] LABORATORY Comment: [...] City/[facility]/[place] [address] (ABNORMAL) APTT (08/08/2017 10:27 [...] Smith MD HEMATOLOGY ORDERABLES Performing Organization Address City/[facility]/[place] [address] POCT Glucose (08/08/2017 8:02 AM EST) athologist Signature POC Glucose 178 65 - 199 [facility] mg/dL [facility] LABORATORY [...] City/[facility]/[place] [address] (ABNORMAL) APTT (08/08/2017 4:51 AM EST) athologist Signature PTT >160 25 - 35 [facility] (Critical) sec [facility] LABORATORY Comment: Called by: HOWARD, Read back [...] Organization Address City/State/Z[place] [address] (ABNORMAL) Differential, Automated (08/08/2017 4:51 AM EST) [facility] Method Time Signature Neutrophils % 77.9 % [facility] LABORATORY Neutr Abs (ANC) 8.17 (H) 1.70 - [facility] 6.10 [facility] x10(3)/[facility] LABORATORY Lymphocytes % 10.3 % [facility] LABORATORY Lymphocytes Abs 1.1 0.9 - 3.2 [facility] x10(3)/[facility] LABORATORY Monocytes % 7.0 % [facility] LABORATORY Monocyte Abs 0.7 0.3 - 0.9 [facility] x10(3)/[facility] LABORATORY Eosinophils % 3.6 % [facility] LABORATORY Eosinophils Abs 0.4 0.0 - 0.4 [facility] x10(3)/[facility] LABORATORY Basophils % 0.5 % [facility] LABORATORY Basophils Abs 0.0 0.0 - 0.1 [facility] x10(3)/[facility] [...] 0.07 (H) 0.00 - 0.04 x10(3)/[facility] LABORATORY Specimen Anatomical Collection Method Collection Time Receive d Time (Source) Location / / Volume Laterality Blood specimen 08/08/2017 4:51 AM 018 5:14 (specimen) EST AM EST Resulting Agency Comment Spec In Lab Yonathan Smith MD HEMATOLOGY ORDERABLES Performing Organization Address City/State/Z[place] [address] (ABNORMAL) Hemogram (08/08/2017 4:51 AM EST) Analysis Performed At Patho logist Time Signature WBC 10.5 (H) 4.0 - 9.5 [facility] x10(3)/[facility] LABORATORY RBC 3.27 (L) 4.58 - [facility] 5.54 [facility] x10(6)/[facility] LABORATORY Hemoglobin 9.3 (L) 13.7 - [facility] 16.5 gm/dL [facility] LABORATORY Hematocrit 30.3 (L) 40.5 - [facility] 48.5 % [facility] LABORATORY MCV 92.7 82.9 - [facility] 93.1 [facility] LABORATORY MCH 28.4 27.5 - [facility] 32.1 pg [facility] LABORATORY MCHC 30.7 (L) 32.0 - [facility] 35.7 gm/dL [facility] LABORATORY Platelets 252 145 - 357 [facility] x10(3)/[facility] LABORATORY RDWSD 54.6 (H) 36.0 - [facility] 45.0 [facility] LABORATORY RDWCV 16.2 (H) 11.4 - [facility] 13.8 % [facility] LABORATORY MPV 9.1 7.6 - 12.9 [facility] LABORATORY nRBC % Auto 0.0 % [facility] LABORATORY nRBC Abs Auto 0.000 0.000 - [place] [facility] 0.000 [facility] x10(3)/[facility] LABORATORY Specimen Anatomical Collection Method Collection Time Receive d Time (Source) Location / / Volume Laterality Blood specimen 08/08/2017 4:51 AM 018 5:14 (specimen) EST AM EST Resulting Agency Comment Spec In Lab Yonathan Smith MD HEMATOLOGY ORDERABLES Performing Organization Address City/[facility]/[place] [address] (ABNORMAL) Prothrombin Time (08/08/2017 [...] Organization Address City/State/[place] [address] (ABNORMAL) Basic Metabolic Panel (non-fasting) (08/08/2017 4:51 AM EST) athologist Signature Glucose Lvl 229 (H) 65 - 199 [facility] mg/dL [facility] LABORATORY [...] or in patients with acute kidney failure. [email or web address] Specimen Anatomical Collection Method Collection Time Receive d Time (Source) Location / / Volume Laterality Blood specimen 08/08/2017 4:51 AM 018 5:14 (specimen) EST AM EST Resulting Agency Comment Spec In Lab Yonathan Smith MD CHEMISTRY ORDERABLES Performing Organization Address City/State/ZIP Code Phon e Number [address] POCT Glucose (08/08/2017 4:20 AM EST) athologist Signature POC Glucose 193 65 - 199 [facility] mg/dL [facility] LABORATORY Comment: [...] City/[facility]/ZIP Code Phon e Number [address] POCT Glucose (08/07/2017 11:11 PM EST) athologist Signature POC Glucose 124 65 - 199 [place] [facility] mg/dL [facility] LABORATORY Comment: [...] City/[facility]/[place] [address] (ABNORMAL) APTT (08/07/2017 10:18 [...] Smith MD HEMATOLOGY ORDERABLES Performing Organization Address City/[facility] Code Phon e Number [address] POCT Glucose (08/07/2017 8:10 PM EST) P athologist Signature POC Glucose 140 65 - 199 [facility] mg/dL [facility] LABORATORY [...] City/[facility]/[place] [address] POCT Glucose (08/07/2017 5:27 PM EST) athologist Signature POC Glucose 187 65 - 199 [facility] mg/dL [facility] LABORATORY Comment: [...] City/[facility]/ZIP Code Phon e Number [address] POCT Glucose (08/07/2017 3:29 PM EST) athologist Signature POC Glucose 86 65 - 199 [facility] mg/dL [facility] LABORATORY Comment: Supplemental ranges: <140 mg/dL before meals <180 mg/dL all other times of the day Specimen Anatomical Collection Method Collection Time Receive d Time (Source) Location / / Volume Laterality Blood specimen 08/07/2017 3:29 PM 018 3:29 (specimen) EST PM EST Yonathan Smith MD POINT OF CARE TEST ORDERABLE S Performing Organization Address City/[facility]/ZIP [facility] [place] [address] (ABNORMAL) APTT (08/07/2017 2:50 [...] Smith MD HEMATOLOGY ORDERABLES Performing Organization Address City/[facility]/[place] [address] (ABNORMAL) POCT Glucose (08/07/2017 2:23 PM EST) athologist Signature POC Glucose 55 (L) 65 - 199 [facility] mg/dL [facility] LABORATORY Comment: [...] Organization Address City/State/ZIP Code Phon e Number [address] POCT Glucose (08/07/2017 12:08 PM EST) athologist [facility] POC Glucose 77 65 - 199 [facility] mg/dL [facility] LABORATORY Comment: [...] Organization Address City/State/ZIP Code Phon e Number [address] (ABNORMAL) Differential, Automated (08/07/2017 7:30 AM EST) [facility] gist Method Time Signature Neutrophils % 73.8 % [facility] LABORATORY Neutr Abs (ANC) 7.17 (H) 1.70 - [facility] 6.10 [facility] x10(3)/[facility] LABORATORY Lymphocytes % 12.2 % [facility] LABORATORY Lymphocytes Abs 1.2 0.9 - 3.2 [facility] x10(3)/[facility] LABORATORY Monocytes % 9.0 % [facility] LABORATORY Monocyte Abs 0.9 0.3 - 0.9 [facility] x10(3)/[facility] LABORATORY Eosinophils % 3.9 % [facility] LABORATORY Eosinophils Abs 0.4 0.0 - 0.4 [facility] x10(3)/[facility] LABORATORY Basophils % 0.6 % [facility] LABORATORY Basophils Abs 0.1 0.0 - 0.1 [facility] x10(3)/[facility] LABORATORY Immature Gran % 0.50 % [...] 0.05 (H) 0.00 - 0.04 x10(3)/[facility] LABORATORY Specimen Anatomical Collection Method Collection Time Receive d Time (Source) Location / / Volume Laterality Blood specimen 08/07/2017 7:30 AM 018 7:45 (specimen) EST AM EST Resulting Agency Comment Spec In Lab Yonathan Smith MD HEMATOLOGY ORDERABLES Performing Organization Address City/State/Z[place] [address] (ABNORMAL) Hemogram (08/07/2017 7:30 AM EST) Analysis Performed At Patho logist Time Signature WBC 9.7 (H) 4.0 - 9.5 [facility] x10(3)/[facility] LABORATORY RBC 3.54 (L) 4.58 - [facility] 5.54 [facility] x10(6)/[facility] LABORATORY Hemoglobin 9.9 (L) 13.7 - [facility] 16.5 gm/dL [facility] LABORATORY Hematocrit 32.3 (L) 40.5 - [facility] 48.5 % [facility] LABORATORY MCV 91.2 82.9 - [facility] 93.1 fL [facility] LABORATORY MCH 28.0 27.5 - [facility] 32.1 pg [facility] LABORATORY MCHC 30.7 (L) 32.0 - [facility] 35.7 gm/dL [facility] LABORATORY Platelets 312 145 - 357 [facility] x10(3)/[facility] LABORATORY RDWSD 53.2 (H) 36.0 - [facility] 45.0 [facility] LABORATORY RDWCV 16.0 (H) 11.4 - [facility] 13.8 % [facility] LABORATORY MPV 8.9 7.6 - 12.9 [facility] LABORATORY nRBC % Auto 0.0 % [facility] LABORATORY nRBC Abs Auto 0.000 0.000 - [facility] 0.000 [facility] x10(3)/[facility] LABORATORY Specimen Anatomical Collection Method Collection Time Receive d Time (Source) Location / / Volume Laterality Blood specimen 08/07/2017 7:30 AM 018 7:45 (specimen) EST AM EST Resulting Agency Comment Spec In Lab Yonathan Smith MD HEMATOLOGY ORDERABLES Performing Organization Address City/State/ZIP [place] [address] (ABNORMAL) Basic Metabolic Panel (non-fasting) (08/07/2017 7:30 AM EST) athologist Signature Glucose Lvl 80 65 - 199 [facility] mg/dL [facility] LABORATORY [...] or in patients with acute kidney failure. [email or web address] Specimen Anatomical Collection Method Collection Time Receive d Time (Source) Location / / Volume Laterality Blood specimen 08/07/2017 7:30 AM 018 7:45 (specimen) EST AM EST Resulting Agency Comment Spec In Lab Yonathan Smith MD CHEMISTRY ORDERABLES Performing Organization Address City/[facility]/ZIP [facility] Phon e Number [address] POCT Glucose (08/07/2017 7:27 AM EST) P athologist Signature POC Glucose 81 65 - 199 [facility] mg/dL [facility] LABORATORY Comment: Supplemental ranges: <140 mg/dL before meals <180 mg/dL all other times of the day Specimen Anatomical Collection Method Collection Time Receive d Time (Source) Location / / Volume Laterality Blood specimen 08/07/2017 7:27 AM 018 7:27 (specimen) EST AM EST Yonathan Smith MD POINT OF CARE TEST ORDERABLE S Performing Organization Address City/[facility]/ZIP [facility] [address] APTT (08/07/2017 7:04 AM [...] Smith MD HEMATOLOGY ORDERABLES Performing Organization Address City/[facility]/[place] [address] (ABNORMAL) Prothrombin Time (08/07/2017 [...] Smith MD HEMATOLOGY ORDERABLES Performing Organization Address City/[facility]/[place] [address] POCT Glucose (08/07/2017 4:03 AM EST) athologist Signature POC Glucose 93 65 - 199 [facility] mg/dL [facility] LABORATORY [...] Organization Address City/State/[place] [address] POCT Glucose (08/07/2017 12:04 AM EST) athologist Signature POC Glucose 107 65 - 199 [facility] mg/dL [facility] LABORATORY Comment: [...] Organization Address City/State/ZIP Code Phon e Number [address] POCT Glucose (08/06/2017 7:56 PM EST) athologist Signature POC Glucose 178 65 - 199 [facility] mg/dL [facility] LABORATORY Comment: [...] City/[facility]/ZIP Code Phon e Number [address] TcPO2 (08/06/2017 2:32 PM EST) Component Value Ref Test Analysis Performed At [facility] gist Range Method Time Signature VB Text Department: Vascular Surgery Lab VASCUBASE Report Patient: [id number] (GREGORY HOANG) CPT: 2232840 ICD10: I99.8 Referring Physician: YONATHAN SMITH ?? [...] than 240, repeat 8 units (no mo 448 ( Given - Provider: Mira Truong RN) [...] Chiquis Mcgrath RN) 0806 (Given - Provider: Cihquis Mcgrath RN) 0800 (G iven - Provider: [...] Dory Truong, VAMSI)1042 (Given - Provider: Dory rTuong, VAMSI) 2-4 mg, Oral, EVERY 3 HOURS [...]
Routine documented in this encounter Care Teams Dye Range Operator Cloth Relationship Specialty Start Date End Date Lovely Vicente MD PCP - General 04/16/[address] [place] [address] [address] [facility] [address] [place] [address] documented as of this encounter
--- OUTSIDE RECORDS SUMMARY | 2022-03-13 10:58 | XMS_ITS | Encounter Summary ---
:1945 Author Organization [facility] [place] [address] Care Team Providers Name Role Phone Lovely Vicente MD Primary Care Provider Reason for Visit Auth/Cert Specialty Diagnoses / Procedures Referred By Contact Refer red To Contact Diagnoses Critical lower limb ischemia CELLULITIS RT FOOT Procedures EMERGENCY Referral ID Status Reason Start Date Expiration Date Visits Requ ested Visits Authorized [id number] 1 1 Encounter Details Date Type Department Care Team Description 08/04/2017 Laboratory Appointment Lab 3L [facility] [place] [address] Social History Tobacco Use Types Packs/Day [...] MD [facility] ER DR [place], [place] [address] (Wo rk) 05/28/2022 Appointment Cardiology Zulma Dolan MD [facility] er [place], [place] [address] (Wo rk) 05/28/2022 Laboratory Appointment Lab 05/28/2022 Office Visit Cardiology Zulma Dolan MD [facility] [place] [address] Liz Poole PA [facility] [place] [address] 06/10/2022 Office Visit Dermatology Laura Scherer MD [facility] ER DR TEJA GR-DERMAT [place], [place] [address] (Wo rk) documented as of this encounter Visit Diagnoses Not on filedocumented in this encounter Care Teams Fashion Show Director Relationship Specialty Start Date End Date Lovely Vicente MD PCP - General 04/16/[address] [place] [address] documented as of this encounter
--- OUTSIDE RECORDS SUMMARY | 2022-03-13 10:58 | XMS_ITS | Encounter Summary ---
:1945 Author Organization [facility] [place] [address] Care Team Providers Name Role Phone Lovely Vicente MD Primary Care Provider Encounter Details Date Type Department Care Team Description 07/29/2017 Transcribe Orders Laboratory Lovely Vicente MD [address] [address] [place], [place] [address] (Mikayla alcaraz) Social History Tobacco Use Types [...] [facility] DR CAR[place]LE [place], [place] [address] (Wo rk) 05/28/2022 Appointment Cardiology Zulma Dolan MD [facility] Dr [place] [address] (Wo rk) 05/28/2022 Laboratory Appointment Lab 05/28/2022 Office Visit Cardiology Zulma Dolan MD [facility] [place] [address] Liz Poole PA [facility] [place] [address] 06/10/2022 Office Visit Dermatology Laura Scherer MD [facility] ER DR TEJA GR-DERMAT [place], [place] 0[address] (Wo rk) documented as of this encounter Visit Diagnoses Not on filedocumented in this encounter Care Teams Data Management Associate Relationship Specialty Start Date End Date Lovely Vicente MD PCP - General 04/16/[address] [place] [address] documented as of this encounter
--- OUTSIDE RECORDS SUMMARY | 2022-03-13 10:58 | XMS_ITS | Encounter Summary ---
:1945 Author Organization [facility] Address [facility] [place] [address] Care Team Providers Name Role Phone Lovely Vicente MD Primary Care Provider Encounter Details Date Type Department Care Team Description 07/29/2017 Transcribe Orders Laboratory Lovely Vicente, Coronary artery rupture; [facility] Ischemic cardiomyopathy; [facility] [address] Atherosclerosis of tlingit & haida co ronary artery, angina presence unspecified, unspecified whether tlingit & haida or transplanted heart; [place], [place] [address] Essential hypertension, malignant; [address] [place], [place] 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, unspecified halfway insulin use status [phone] [id number] Social History Tobacco Use Types Packs/Day Years [...] [facility] ER DR TADEO [place], [place] [address] (Wo rk) 05/28/2022 Appointment Cardiology Zulma Dolan MD [facility] [place], [place] [address] (Wo rk) 05/28/2022 Laboratory Appointment Lab 05/28/2022 Office Visit Cardiology Zulma Dolan MD [facility] [place] [address] Liz Poole PA [facility] [place] [address] 06/10/2022 Office Visit Dermatology Laura Scherer MD [facility] DR [address]-DERMAT [place]LOGY [place], [place] 0[address] (Wo rk) Scheduled Orders Name Type Priority Associated Diagnoses Order S chedule Lab Use Only, Fax Lab Routine Coronary arter y rupture Expected: 07/29/2017 Request Ischemic cardiom yopathy (Approximate), Atherosclerosis of tlingit & haida Ex jose: 07/29/2018 coronary artery, angina presence unspecified, unspecified whether tlingit & haida or transplanted heart Essential hypertension, malignant documented as of this encounter Results Uric acid (08/04/2017 12:55 PM EST) P athologist Signature Uric Acid 7.1 3.5 - 8.5 [facility] mg/dL [facility] LABORATORY Specimen Anatomical Collection Method Collection Time Receive d Time (Source) Location / / Volume Laterality Blood specimen 08/04/2017 12:55 8 1:01 (specimen) PM EST PM EST Resulting Agency Comment Spec In Lab Lovely Vicente MD CHEMISTRY ORDERABLES Performing Organization Address City/State/[place] [address] (ABNORMAL) Hemogram (08/04/2017 12:55 PM EST) Analysis Performed At Patho logist Time Signature WBC 15.8 (H) 4.0 - 9.5 [facility] RYAN x10(3)/[facility] LABORATORY RBC 3.48 (L) 4.58 - [place] RYAN 5.54 [facility] x10(6)/[facility] LABORATORY Hemoglobin 9.9 (L) 13.7 - [facility] 16.5 gm/dL [facility] LABORATORY Hematocrit 31.4 (L) 40.5 - [place] ZHAORYAN 48.5 % [facility] LABORATORY MCV 90.2 82.9 - [facility] 93.[address] [facility] LABORATORY MCH 28.4 27.5 - [place] RYAN 32.1 pg [facility] LABORATORY MCHC 31.5 (L) 32.0 - [place] RYAN 35.7 gm/dL [facility] LABORATORY Platelets 310 145 - 357 [facility] x10(3)/[facility] LABORATORY RDWSD 51.8 (H) 36.0 - [facility] [address] [facility] LABORATORY RDWCV 15.8 (H) 11.4 - [facility] 13.8 % [facility] LABORATORY MPV 8.9 7.6 - 12.9 [facility] LABORATORY nRBC % Auto 0.0 % [facility] LABORATORY nRBC Abs Auto 0.000 0.000 - [facility] 0.000 [facility] x10(3)/[facility] LABORATORY Specimen Anatomical Collection Method Collection Time Receive d Time (Source) Location / / Volume Laterality Blood specimen 08/04/2017 12:55 8 1:01 (specimen) PM EST PM EST Resulting Agency Comment Spec In Lab Lovely Vicente MD HEMATOLOGY ORDERABLES Performing Organization Address City/State/[place] [address] (ABNORMAL) Comprehensive metabolic panel (non-fasting) (08/04/2017 12:55 PM EST) P athologist Signature Glucose Lvl 208 (H) 65 - 199 [facility] mg/dL [facility] LABORATORY Comment: Diabetes: >=200 mg/dL plus symp toms BUN 32 (H) 10 - 20 mg/dL [facility] LAB[facility] Creatinine 1.58 (H) 0.80 - 1.50 mg/dL [facility] [...] Total Protein 6.9 6.1 - 8.0 gm/dL [facility] LABORATORY Albumin 3.4 3.2 - 5.2 [...] or in patients with acute kidney failure. [email or web address] [email or web address] Specimen Anatomical Collection Method Collection Time Receive d Time (Source) Location / / Volume Laterality Blood specimen 08/04/2017 12:55 8 1:01 (specimen) PM EST PM EST Resulting Agency Comment Spec In Lab Lovely Vicente MD CHEMISTRY ORDERABLES Performing Organization Address City/State/[place] [address] (ABNORMAL) Hemoglobin A1c (08/04/2017 12:55 PM EST) Analysis Performed At Patho logist Time Signature Hemoglobin A1C 6.2 (H) 4.3 - 5.6 [facility] LABORATORY Comment: Reference Range: 4.3 - [...] S67-63 Est Avg Gluc See note mg/dL [facility] LABORATORY Comment: Estimated Average Glucose [...] into estimated average glucose values. ??Diabetes Care 2008:31(8):1859-4899. Specimen Anatomical Collection Method Collection Time Receive d Time (Source) Location / / Volume Laterality Blood specimen 08/04/2017 12:55 8 1:01 (specimen) PM EST PM EST Resulting Agency Comment Spec In Lab Lovely Vicente MD CHEMISTRY ORDERABLES Performing Organization Address City/[facility]/[place] [address] (ABNORMAL) Prothrombin Time (08/04/2017 [...] Organization Address City/[facility] [place] [place] [address] documented in this encounter Visit Diagnoses Diagnosis Coronary artery rupture Acute myocardial infarction, unspecified site, episode of care unspecified Ischemic cardiomyopathy Other specified forms of chronic ischemi c heart disease Atherosclerosis of tlingit & ha[place] coronary arter y, angina presence unspecified, unspecified whether tlingit & haida or transplanted heart Essential hypertension, malignant Diabetes mellitus due to underlying cond ition with diabetic nephropathy, unspecified intermediate designer insulin use status documented in this encounter Care Teams Sensitometrist Relationship Specialty Start Date End Date Lovely Vicente MD PCP - General 04/16/[address] [place] [address] documented as of this encounter
--- OUTSIDE RECORDS SUMMARY | 2022-03-13 10:58 | XMS_ITS | Encounter Summary ---
:1945 Author Organization [place] [address] Care Team Providers Name Role Phone Lovely Vicente MD Primary Care Provider Reason for Visit Auth/Cert Specialty Diagnoses / Procedures Referred By Contact Refer red To Contact Diagnoses Critical lower limb ischemia CELLULITIS RT FOOT Procedures EMERGENCY Referral ID Status Reason Start Date Expiration Date Visits Requ ested Visits Authorized [id number] 1 1 Encounter Details Date Type Department Care Team Description 08/06/2017 Clinical Support [facility] Day at [facility] Ischemia of foot [facility] [place] [address] Social History Tobacco Use Types Packs/Day [...] noother symptoms except severe right foot pain. [facility] clinic called as pt on route [...] MD [facility] CARDIOLOGY [place], [place] 0[address] (Wo rk) 05/28/2022 Appointment Cardiology Zulma Dolan MD [facility] [place], [place] [address] (Wo rk) 05/28/2022 Laboratory Appointment Lab 05/28/2022 Office Visit Cardiology Zulma [place]olan [place] [address] Liz Poole PA [facility] [place] [address] 06/10/2022 Office Visit Dermatology Laura Scherer MD [facility] DR TE[address] GR[address]DERMAT [place]LOGY [place], [place] 0[address] (Wo rk) documented as of [...] 444 ms MUSE SYSTEM (Bezet) Calculated P [place] 44 degrees MUSE SYSTEM Calculated R [place] -31 degrees MUSE SYSTEM Calculated T [place] 106 degrees MUSE SYSTEM INTERPRETATION Normal sinus [...] disorder documented in this encounter Care Teams Mission Assessment Specialist Relationship Specialty Start Date End Date Lovely Vicente MD PCP - General 04/16/[address] [place] [address] documented as of this encounter
--- OUTSIDE RECORDS SUMMARY | 2022-03-13 10:58 | XMS_ITS | Encounter Summary ---
:1945 [place] [address] Care Team Providers Name Role Phone Lovely Vicente MD Primary Care Provider Reason for Visit Auth/Cert Specialty Diagnoses / Procedures Referred By Contact Refer red To Contact Diagnoses Critical lower limb ischemia CELLULITIS RT FOOT Procedures EMERGENCY Referral ID Status Reason Start Date Expiration Date Visits Requ ested Visits Authorized [id number] 1 1 Encounter Details Date Type Department Care Team Description 08/09/2017 Anesthesia Event Main Operating Room Daniele Lizama MD [facility] [place]ESI[place] [address] [facility] Rob Jones MD [facility] [place] [address] [place] [address] Anesthesia Record Procedure Summary Procedure Name [...] Knowles, Dory arm), right; VAMSI Rios, RN vyjc-sal-xcknoe catheter system; 20 gauge; 08/16/17; 1047 PIV 07/29/17; 1413; median 07/29/17 1413 by 08/16/17 1047 by cubital vein (antecubital Magdalene Hickey Williams, Dory fossa), left; VAMSI Wyatt, RN gwqe-knu-snvhfr catheter system; 20 gauge; 08/16/17; 1047 PIV 08/06/17; 1742; cephalic 08/06/17 1742 by 0920 by vein (lateral side of Taylor Laureano Danah y, Caitlyn C, arm), right; VAMSI BONNER ofzn-pie-amlvnp catheter system; 22 gauge, 1 in length; Eliseo LAUREANO RN VAS; distraction, intradermal injection, tolerated well, appears comfortable; 0; 08/16/17; 0920 Wound 08/07/17; 1335; knee; 08/07/17 1335 by 08/16/17 1047 by laceration; wound occured Barbara Albert iams, Dory ACCOUNTS RECEIVABLE EXECUTIVE; 08/16/17; 1047 VAMSI Alonzo, RN PIV 08/07/17; 1734; cephalic 08/07/17 1734 by 1047 by vein (lateral side of Kendrick, Carlos W, Willia ms, Dory arm), left; MARCIE Wyatt RN gkhf-zit-ptzgmz catheter system; 22 gauge; distraction, intradermal injection, [...] Stop Room / Location 08/09/[address] [facility] OR 14 / 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 Nerve [...] by Manny Mcknight MD at [facility] OR ??? PRO CABG, ARTERIAL, SINGLE N/A 07/07/2017 @CABG, USING ARTERIAL GRAFT;SINGLE ARTERIAL GRAFT (WRVU 33.75) performed by Yuan Retana MD at [facility] MAIN OR ??? PRO CABG, ARTERY-VEIN, TWO N/A 07/07/2017 @CABG, TWO VENOUS GRAFTS & ARTERIAL GRAFT (WRVU 7.93) performed by Yuan Retana MD at [facility] OR ??? PRO COLONOSCOPY, REMV LESN, SNARE 01/16/2014 COLONOSCOPY, POLYPECTOMY, REMOVAL LESION BY SNARE performed by Nohemi Jaimes MD at [facility] ENDOSCOPY ??? PRO ENDOSCOPY W/VIDEO-ASST VEIN HARVEST, CABG Right 07/07/2017 ENDOSCOPIC HARVEST VEIN(S) FOR CABG (WRVU 0.31) performed by Yuan Retana MD at [facility] OR ??? PRO THYROIDECTOMY 03/28/2013 THYROIDECTOMY, TOTAL OR COMPLETE performed by Manny Mcknight MD at [facility] MAIN OR Social History Substance Use Topics [...] adequate IV access. Brody Santillan MD PGY-2, [employer] Mixer Operator Pager #[phone] Anesthesiology Staff (Dewhirst): Pre-op summary note as [...] MD [facility] DR TADEO [place], [place] 0[address] (Wo rk) 05/28/2022 Appointment Cardiology Zulma Dolan MD [facility] [place], [place] 0[address] (Wo rk) 05/28/2022 Laboratory Appointment Lab 05/28/2022 Office Visit Cardiology Zulma Dolan MD [facility] [place] [address] Liz Poole PA [facility] [place] [address] 06/10/2022 Office Visit Dermatology Laura Scherer MD [facility] DR TE[address] GR-DERMAT [place], [place] 0[address] (Wo rk) documented as [...] Length: 10 cm Gauge: 21 Needle Type: U-keunw-xgswf Medication injection made in crementally with aspirations. [...] Procedure) documented in this encounter Care Teams Desizing Machine Offbearer Relationship Specialty Start Date End Date Lovely Vicente MD PCP - General 04/16/[address] [place] [address] [address] [place] [address] documented as of this encounter
--- OUTSIDE RECORDS SUMMARY | 2022-03-13 10:58 | XMS_ITS | Encounter Summary ---
:1945 Author Organization [facility] [place] [address] Care Team Providers Name Role Phone Lovely Vicente MD Primary Care Provider Encounter Details Date Type Department Care Team Description 08/06/2017 Orders Only Vascular Surgery at [facility] [place] APRN Ischemia of foot [facility] Jorge [facility] [place] [address] VASCULAR SURGERY [phone] [place], [place] 0[address] (Wo rk) Social History Tobacco [...] MD [facility] ER DR CARLYLE [place] [address] (Wo rk) 05/28/2022 Appointment Cardiology Zulma Dolan MD [facility] Dr [place] [address] (Wo rk) 05/28/2022 Laboratory Appointment Lab 05/28/2022 Office Visit Cardiology Zulma Dolan MD [facility] [place] [address] Liz Poole PA [facility] [place] [address] 06/10/2022 Office Visit Dermatology Laura Scherer MD [facility] ER DR [address]-DERMAT [place], [place] 0375 (Wo rk) documented [...] 444 ms MUSE SYSTEM (Bezet) Calculated P [place] 44 degrees MUSE SYSTEM Calculated R [place] -31 degrees MUSE SYSTEM Calculated T [place] 106 degrees MUSE SYSTEM INTERPRETATION Normal sinus [...] 19 (L) 20 - 40 [facility] mg/dL [facility] LABORATORY Comment: Prealbumin levels are [...] City/State/ZIP Code Phon e Number [place] [phone] (ABNORMAL) Basic Metabolic Panel (non-fasting) (08/06/2017 12:32 PM EST) athologist Signature Glucose Lvl 92 65 - 199 [facility] mg/dL [facility] [...] Chloride 97 (L) 98 - 107 mmol/L [facility] LABORATORY CO2 25 22 - 31 mmol/L [facility] LABORATORY Anion Gap 16 (H) 5 - 15 mmol/L [facility] LABORATORY Calcium 8.5 8.5 - 10.5 mg/dL [facility] LABORATORY Estimated GFR 53 (L) >=60 [facility] LABORATORY Comment: The reported eGFR should be multiplied b y 1.2 for patients. The MDRD is not an appropriate measure o f renal function for patients with body mass extremes or in patients with acute kidney failure. [email or web address] [email or web address] Specimen Anatomical Collection Method Collection Time Receive d Time (Source) Location / / Volume Laterality Blood specimen 08/06/2017 12:32 8 1:15 (specimen) PM EST PM EST Resulting Agency Comment Spec In Lab Arik Clement MD CHEMISTRY ORDERABLES Performing Organization Address City/State/[place] [address] (ABNORMAL) Hemogram (08/06/2017 12:32 PM EST) Analysis Performed At Patho logist Time Signature WBC 11.8 (H) 4.0 - 9.5 [facility] x10(3)/[facility] LABORATORY RBC 3.49 (L) 4.58 - [facility] 5.54 [facility] x10(6)/[facility] LABORATORY Hemoglobin 9.9 (L) 13.7 - [facility] 16.5 gm/dL [facility] LABORATORY Hematocrit 32.0 (L) 40.5 - [facility] 48.5 % [facility] LABORATORY MCV 91.7 82.9 - [facility] 93.1 [facility] LABORATORY MCH 28.4 27.5 - [place] RYAN 32.1 pg [facility] LABORATORY MCHC 30.9 (L) 32.0 - [facility] 35.7 gm/dL [facility] LABORATORY Platelets 326 145 - 357 [facility] x10(3)/[facility] LABORATORY RDWSD 53.4 (H) 36.0 - [place]INA RYAN 45.0 [facility] LABORATORY RDWCV 16.0 (H) 11.4 - [facility] RYAN 13.8 % [facility] LABORATORY MPV 9.1 7.6 - 12.9 [facility] LABORATORY nRBC % Auto 0.0 % [facility] LABORATORY nRBC Abs Auto 0.000 0.000 - [place] RYAN 0.000 [facility] x10(3)/[facility] LABORATORY Specimen Anatomical Collection Method Collection Time Receive d Time (Source) Location / / Volume Laterality Blood specimen 08/06/2017 12:32 8 1:15 (specimen) PM EST PM EST Resulting Agency Comment Spec In Lab Arik Clement MD HEMATOLOGY ORDERABLES Performing Organization Address City/State/[place] [address] documented in this encounter Visit Diagnoses Diagnosis Ischemia of foot Unspecified circulatory system disorder documented in this encounter Care Teams Associate Of Science In Nursing Relationship Specialty Start Date End Date Lovely Vicente MD PCP - General 04/16/[address] [place] [address] documented as of this encounter
--- OUTSIDE RECORDS SUMMARY | 2022-03-13 10:58 | XMS_ITS | Encounter Summary ---
:1945 [place] [address] Care Team Providers Name Role Phone Lovely Vicente MD Primary Care Provider Encounter Details Date Type Department Care Team Description 08/05/2017 Notes Only Vascular Surgery at [facility] [place], [place] [address] VASCULAR SURGERY [phone] [place], [place] 0[address] (Wo rk) Social History Tobacco [...] MD [facility] [address] T[address] [place], [place] 0375 (Wo rk) 05/28/2022 Appointment Cardiology Zulma Dolan MD [facility] [place], [place] 0375 (Wo rk) 05/28/2022 Laboratory Appointment Lab 05/28/2022 Office Visit Cardiology Zulma Dolan MD [facility] [place] [address] Liz Poole PA [facility] [place] [address] 06/10/2022 Office Visit Dermatology Laura Scherer MD [facility] DR [address]-DERMAT [place], [place] 0375 (Wo rk) documented as of this encounter Visit Diagnoses Not on filedocumented in this encounter Care Teams Hand Rug Braider Relationship Specialty Start Date End Date Lovely Vicente MD PCP - General 04/16/[address] [place] [address] documented as of this encounter
--- OUTSIDE RECORDS SUMMARY | 2022-03-13 10:58 | XMS_ITS | Encounter Summary ---
:1945 Author Organization [facility] [place] [address] Care Team Providers Name Role Phone Lovely Vicente MD Primary Care Provider Reason for Visit Auth/Cert Specialty Diagnoses / Procedures Referred By Contact Refer red To Contact Diagnoses Critical lower limb ischemia CELLULITIS RT FOOT Procedures EMERGENCY Referral ID Status Reason Start Date Expiration Date Visits Requ ested Visits Authorized [id number] 1 1 Encounter Details Date Type Department Care Team Description 08/04/2017 Office Visit Cardiology at [facility] Danette Maxwell Incisional pain; [facility] A, MERCURY CELL CLEANER Ischemic cardiomyopathy; [facility] ASCVD (arteriosclerotic card iovascular disease); [place], [place] Systolic heart failure, unspecified hear t failure chronicity [phone] CARDIOLOGY [phone] [place], [place] [address] Social History Tobacco Use Types [...] in this encounter Progress Notes Danette Maxwell, MERCURY CELL CLEANER - 08/04/2017 3:00 PM EST ID and [...] 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 [...] MD [facility] DR TADEO [place], [place] [address] (Wo rk) 05/28/2022 Appointment Cardiology Zulma Dolan MD [facility] [place], [place] [address] (Wo rk) 05/28/2022 Laboratory Appointment Lab 05/28/2022 Office Visit Cardiology Zulma Dolan MD [facility] [place] [address] Liz Poole PA [facility] [place] [address] 06/10/2022 Office Visit Dermatology Laura Scherer MD [facility] DR TEJA GR-DERMAT [place]LOGY [place], [place] [address] (Wo rk) documented as of [...] Daniele gutiérrez 08/04/2017 4:13 PM Danette Maxwell MERCURY CELL CLEANER IMG DX ORDERABLES documented in this encounter Visit Diagnoses Diagnosis Incisional pain Disturbance of skin sensation Ischemic cardiomyopathy Other specified forms of chronic ischemi c heart disease ASCVD (arteriosclerotic cardiovascular d isease) Unspecified cardiovascular disease Systolic heart failure, unspecified hear t failure chronicity Incisional pain Disturbance of skin sensation documented in this encounter Care Teams Market Manager Relationship Specialty Start Date End Date Lovely Vicente MD PCP - General 04/16/[address] [place] [address] documented as of this encounter
--- OUTSIDE RECORDS SUMMARY | 2022-03-13 10:58 | XMS_ITS | Encounter Summary ---
:1945 Author Organization [facility] [place] [address] Care Team Providers Name Role Phone Lovely Vicente MD Primary Care Provider Encounter Details Date Type Department Care Team Description 08/02/2017 Telephone Pain Management at [facility] [place], [place] [address] Social History Tobacco Use Types Packs/Day [...] Management Center Preauthorization Request Patient: Don Fatima [id number] Fax received from [facility] requesting we obtain prior authorization for Lidocaine patches prescribed by Barbra Soares APRN. RX insurance plan: [employer] insurance telephone: [phone] Patient Diagnosis: right foot pain secondary to PVD and ischemia Previous medications attempted: Tylenol, Tramadol, Dilaudid The following action was taken after discussion with the business services sales agent: _x_ pharmacy informed Authorized dosage or amount: 5% on patch on for 12 hours, then remove for 12 hours. Angeles Rodrigez, RN documented in this encounter Plan of Treatment Upcoming Encounters Date Type Specialty Care Team Description 03/26/2022 Office Visit Cardiology Vitaliy Nobles MD [facility] [address] TADE[address] [place], [place] [address] (Wo rk) 05/28/2022 Appointment Cardiology Zulma Dolan MD [facility] [place], [place] [address] (Wo rk) 05/28/2022 Laboratory Appointment Lab 05/28/2022 Office Visit Cardiology Zulma Dolan MD [facility] [place] [address] Liz Poole PA [facility] [place] [address] 06/10/2022 Office Visit Dermatology Laura Scherer MD [facility] DR TEJA GR-DERMAT [place], [place] [address] (Wo rk) documented as of this encounter Visit Diagnoses Not on filedocumented in this encounter Care Teams Moisture Conditioner Operator Relationship Specialty Start Date End Date Lovely Vicente MD PCP - General 04/16/[address] [place] [address] documented as of this encounter
--- OUTSIDE RECORDS SUMMARY | 2022-03-13 10:58 | XMS_ITS | Encounter Summary ---
:1945 Author Organization [facility] [place] [address] Care Team Providers Name Role Phone Lovely Vicente MD Primary Care Provider Encounter Details Date Type Department Care Team Description 08/03/2017 Telephone Pain Management at [facility], [place] [address] Social History Tobacco Use Types Packs/Day [...] Management Center Preauthorization Request Patient: Don Fatima [id number] Fax received from [facility] requesting we obtain prior authorization for Lidocaine Patches prescribed by Barbra Soares APRN. RX insurance plan: [facility] [employer] insurance telephone: [phone] Patient ?? Diagnosis: right foot pain secondary to PVD and ischemia ?? Previous medications attempted: Tylenol, Tramadol, Dilaudid Authorization/Reference number: [id number], PBP Code 801 _x_ denied, provider and patient informed _x_ appeal initiated by provider, patient informed Angeles Rodrigez, RN documented in this encounter Plan of Treatment Upcoming Encounters Date Type Specialty Care Team Description 03/26/2022 Office Visit Cardiology Vitaliy Nobles MD [facility] CARDIOLOGY [place], [place] [address] (Wo rk) 05/28/2022 Appointment Cardiology Zulma Dolan MD [facility] [place], [place] [address] (Wo rk) 05/28/2022 Laboratory Appointment Lab 05/28/2022 Office Visit Cardiology Zulma Dolan MD [facility] [place] [address] Liz Poole PA [facility] [place] [address] 06/10/2022 Office Visit Dermatology Laura Scherer MD [facility] DR TEJA GR-DERMAT [place], [place] [address] (Wo rk) documented as of this encounter Visit Diagnoses Not on filedocumented in this encounter Care Teams Shift Stacker Relationship Specialty Start Date End Date Lovely Vicente MD PCP - General 04/16/[address] [place] [address] documented as of this encounter
--- OUTSIDE RECORDS SUMMARY | 2022-03-13 10:58 | XMS_ITS | Encounter Summary ---
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 [...] SETUP performed by Manny Mcknight MD at [facility] MAIN OR ??? PRO CABG, ARTERIAL, SINGLE N/A 07/07/2017 @CABG, USING ARTERIAL GRAFT;SINGLE ARTERIAL GRAFT (WRVU 33.75) performed by Yuan Retana MD at [facility] MAIN OR ??? PRO CABG, ARTERY-VEIN, TWO N/A 07/07/2017 @CABG, TWO VENOUS GRAFTS & ARTERIAL GRAFT (WRVU 7.93) performed by Yuan Retana MD at [facility] MAIN OR ??? PRO COLONOSCOPY, REMFlash MOCK, SNARE 01/16/2014 COLONOSCOPY, POLYPECTOMY, REMOVAL LESION BY SNARE performed by Nohemi Jaimes MD at [facility] ENDOSCOPY ??? PRO ENDOSCOPY W/VIDEO-ASST VEIN HARVEST, CABG Right 07/07/2017 ENDOSCOPIC HARVEST VEIN(S) FOR CABG (WRVU 0.31) performed by Yuan Retana MD at [facility] MAIN OR ??? 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 Hank Zhang Vascular Surgery, PGY2 Pager #[phone] Associated attestation - Arik Clement MD - [...] Vitaliy Nobles MD [facility] [address] TADE[address] [place], [place] [address] (Wo rk) 05/28/2022 Appointment Cardiology Zulma Dolan MD [facility] [place], [place] [address] (Wo rk) 05/28/2022 Laboratory Appointment Lab 05/28/2022 Office Visit Cardiology Zulma Dolan MD [facility] [place] [address] Liz Poole PA [facility] [place] [address] 06/10/2022 Office Visit Dermatology Laura Scherer MD [facility] DR TEJA GR-DERMAT OLOGY [place], [place] [address] (Wo rk) documented as [...] Test Analysis Performed At [facility] Range Method Time Signature VB Text Department: Vascular Surgery Lab VASCUBASE Report Patient: [id number] (GREGORY FATIMA) CPT: 32037 ICD10: I82.541 Referring Physician: TAMIKO JIMÉNEZ ?? [...] Jiménez MD VASCULAR ORDERABLES Performing Organization Address City/[facility]/ZIP Code Phon e Number VASCUBASE POCT Glucose (07/29/2017 2:28 PM EST) P athologist Signature POC Glucose 128 65 - 199 [facility] mg/dL [facility] Comment: Supplemental ranges: <140 mg/dL before meals <180 mg/dL all other times of the day Specimen Anatomical Collection Method Collection Time Receive d Time (Source) Location / / Volume Laterality Blood specimen 07/29/2017 2:28 PM 018 2:28 (specimen) EST PM EST Tamiko Jiménez MD POINT OF CARE TEST ORDERABLE S Performing Organization Address [facility] [place] [address] (ABNORMAL) D-Dimer, Quantitative (07/29/2017 2:15 PM EST) [facility] Method Time Signature D-Dimer, Quant 1,699 (H) 0 - 500 [facility] FEU ng/ml [facility] Comment: The D-Dimer assay is [...] Jiménez MD HEMATOLOGY ORDERABLES Performing Organization Address City/[facility] Phon e Number [address] (ABNORMAL) Differential, Automated (07/29/2017 2:15 PM EST) [facility] Method Time Signature Neutrophils % 82.5 % [facility] LABORATORY Neutr Abs (ANC) 10.21 (H) 1.70 - [facility] 6.10 [facility] x10(3)/[facility] LABORATORY Lymphocytes % 7.1 % [facility] LABOR[facility]ORY Lymphocytes Abs 0.9 0.9 - 3.2 [facility] x10(3)/[facility] LABORATORY Monocytes % 6.5 % [facility] LABORATORY Monocyte Abs 0.8 0.3 - 0.9 [facility] x10(3)/[facility] LABORATORY Eosinophils % 2.7 % [facility] LABORATORY Eosinophils Abs 0.3 0.0 - 0.4 [facility] x10(3)/[facility] LABORATORY Basophils % 0.6 % [facility] LABORATORY Basophils Abs 0.1 0.0 - 0.1 [facility] x10(3)/[facility] LABORATORY Immature Gran % 0.60 [...] Organization Address City/State/[place]IP [place] [address] (ABNORMAL) Hemogram (07/29/2017 2:15 PM EST) Analysis Performed At Patho logist Time Signature WBC 12.4 (H) 4.0 - 9.5 [facility] x10(3)/[facility] LABORATORY RBC 4.17 (L) 4.58 - [facility] 5.54 [facility] x10(6)/[facility] LABORATORY Hemoglobin 12.1 (L) 13.7 - KATALINA DAVIS 16.5 gm/dL [facility] LABOR[facility]ORY Hematocrit 38.1 (L) 40.5 - [place] DAV[place] 48.5 % [facility] LABORATORY MCV 91.4 82.9 - [facility] RYAN 93.1 [facility] LABORATORY MCH 29.0 27.5 - [place] OLIVASCK 32.1 pg [facility] LABORATORY MCHC 31.8 (L) 32.0 - [place] DAVIS 35.7 gm/dL [facility] LABOR[facility]ORY Platelets 204 145 - 357 [facility] x10(3)/[facility] LABORATORY RDWSD 50.5 (H) 36.0 - [facility] RYAN 45.0 [facility] LABORATORY RDWCV 15.3 (H) 11.4 - [facility] RYAN 13.8 % [facility] LABORATORY MPV 9.4 7.6 - 12.9 [facility] nRBC % Auto 0.0 % [facility] LABORATORY nRBC Abs Auto 0.000 0.000 - [place] RYAN 0.000 [facility] x10(3)/[facility] LABORATORY Specimen Anatomical Collection Method Collection Time Receive d Time (Source) Location / / Volume Laterality Blood specimen 07/29/2017 2:15 PM 018 2:36 (specimen) EST PM EST Resulting Agency Comment Spec In Lab Tamiko Jiménez MD HEMATOLOGY ORDERABLES Performing Organization Address City/State/[place] [address] (ABNORMAL) Prothrombin Time (07/29/2017 2:15 PM EST) P athologist Signature PT 24.4 (H) 11.8 - 14.0 [facility] LABORATORY INR 2.2 (H) 0.9 [...] Organization Address City/State/Z[place] [address] Arterial Duplex Leg, Unil (07/29/2017 11:50 AM EST) Component Value Ref Test Analysis Performed At [facility] Range Method Time Signature VB Text Department: Vascular Surgery Lab VASCUBASE Report Patient: [id number] (GREGORY FATIMA) CPT: 83912 ICD10: Z09;I97.610 Referring Physician: TAMIKO JIMÉNEZ ?? [...] Test Analysis Performed At [facility] Range Method Time Signature VB Text Department: Vascular Surgery Lab VASCUBASE Report Patient: [id number] (GREGORY FATIMA) CPT: 69145 ICD10: I82.441 Referring Physician: TAMIKO JIMÉNEZ ?? [...] he calf. Notification: Marquis Pathak MD (pager #[phone]) was notif ied of the preliminary findings. [...] STAT documented in this encounter Care Teams Betting Agency Counter Clerk Relationship Specialty Start Date End Date Lovely Vicente MD PCP - General 04/16/[address] [place] [address] documented as of this encounter
--- OUTSIDE RECORDS SUMMARY | 2022-03-13 10:58 | XMS_ITS | Encounter Summary ---
:1945 Author Organization [facility] [place] [address] Care Team Providers Name Role Phone Lovely Vicente MD Primary Care Provider Encounter Details Date Type Department Care Team Description 07/29/2017 Transcribe Orders Laboratory Lovely Vicente MD [address] [address] [place], [place] [address] (Mikayla alcaraz) Social History Tobacco Use Types [...] MD [facility] DR CARLYLE [place], [place] [address] (Wo rk) 05/28/2022 Appointment Cardiology Zulma Dolan MD [facility] [address] [place] [address] (Wo rk) 05/28/2022 Laboratory Appointment Lab 05/28/2022 Office Visit Cardiology Zulma Dolan MD [facility] [place] [address] Liz Poole PA [facility] [place] [address] 06/10/2022 Office Visit Dermatology Laura Scherer MD [facility] ER DR TEJA GR-DERMAT [place], [place] [address] (Wo rk) documented as of this encounter Visit Diagnoses Not on filedocumented in this encounter Care Teams Sonography Technician Relationship Specialty Start Date End Date Lovely Vicente MD PCP - General 04/16/[address] [place] [address] documented as of this encounter
--- OUTSIDE RECORDS SUMMARY | 2022-03-13 10:58 | XMS_ITS | Encounter Summary ---
:1945 [place] [address] Care Team Providers Name Role Phone Lovely Vicente MD Primary Care Provider Encounter Details Date Type Department Care Team Description 08/03/2017 Hospital Encounter Radiology Library at [place], Tommy Mijares [facility] [place] [address] VASCULAR SURGERY [phone] [place], [place] [address] (Wo rk) Social History [...] Nobles MD [facility] [address] TADE[address] [place], [place] [address] (Wo rk) 05/28/2022 Appointment Cardiology Zulma Dolan MD [facility] [address] [place], [place] [address] (Wo rk) 05/28/2022 Laboratory Appointment Lab 05/28/2022 Office Visit Cardiology Zulma Dolan MD [facility] [place] [place] [address] Liz Poole PA [facility] [place] [address] 06/10/2022 Office Visit Dermatology Laura Scherer MD [facility] DR TEJA GR-DERMAT [place], [place] [address] (Wo rk) documented as of [...] Time Received Time / Laterality Volume Narrative [facility] - 08/03/2017 6:01 PM EST This exam is for storage only and is aut o-finalizing. Arik Clement MD IMG FILM LIBRARY ORDERABLES Performing Organization Address City/State/ZIP Code Phon e Number [place], [place] documented in this encounter Visit Diagnoses Diagnosis Pain Generalized pain documented in this encounter Care Teams Pesticide Chemist Relationship Specialty Start Date End Date Lovely Vicente MD PCP - General 04/16/[address] [place] [address] documented as of this encounter
--- OUTSIDE RECORDS SUMMARY | 2022-03-13 10:58 | XMS_ITS | Encounter Summary ---
:1945 Author Organization [facility] [place] [address] Care Team Providers Name Role Phone Lovely Vicente MD Primary Care Provider Reason for Visit Auth/Cert Specialty Diagnoses / Procedures Referred By Contact Refer red To Contact Diagnoses Critical lower limb ischemia CELLULITIS RT FOOT Procedures EMERGENCY Referral ID Status Reason Start Date Expiration Date Visits Requ ested Visits Authorized [id number] 1 1 Encounter Details Date Type Department Care Team Description 08/04/2017 [facility] [place] thrombosis of [facility] [place] [phone] Social History Tobacco Use Types Packs/Day Years [...] Nobles MD [facility] DR TADE[address] [place], [place] [address] (Wo rk) 05/28/2022 Appointment Cardiology Zulma Dolan MD [facility] Dr [place], [place] [address] (Wo rk) 05/28/2022 Laboratory Appointment Lab 05/28/2022 Office Visit Cardiology Zulma Dolan MD [facility] [place] [address] Liz Poole PA [facility] [place] [address] 06/10/2022 Office Visit Dermatology Laura Scherer MD [facility] DR TEJA GR-DERMAT [place]LOG[place], [place] [address] (Wo rk) documented [...] Test Analysis Performed At [facility] Range Method Time Signature VB Text Department: Vascular Surgery Lab VASCUBASE Report Patient: [id number] (GREGORY HOANG) CPT: 33108 ICD10: I82.541 Referring Physician: TAMIKO HUTSON ?? [...] extremity documented in this encounter Care Teams Administration Dean Relationship Specialty Start Date End Date Lovely Vicente MD PCP - General 04/16/[address] [place] [id number] documented as of this encounter
--- OUTSIDE RECORDS SUMMARY | 2022-03-13 10:58 | XMS_ITS | Encounter Summary ---
:1945 [place] [address] Care Team Providers Name Role Phone Lovely Vicente MD Primary Care Provider Encounter Details Date Type Department Care Team Description 08/04/2017 Orders Only Cardiac Surgery Makayla Wilson SUPERVISOR INCISING [facility] [place] [address] CARDIAC SURGERY [phone] [place], [place] [address] (Wo rk) Social History [...] MD [facility] ER [address] CARLYLE [place] [address] (Wo rk) 05/28/2022 Appointment Cardiology Zulma Dolan MD [facility] Dr [place], [place] [address] (Wo rk) 05/28/2022 Laboratory Appointment Lab 05/28/2022 Office Visit Cardiology Zulma Dolan MD [facility] [place] [address] Liz Poole PA [facility] [place] [address] 06/10/2022 Office Visit Dermatology Laura Scherer MD [facility] ER DR [address]DERMAT [place], [place] [address] (Wo rk) documented as of this encounter Visit Diagnoses Not on filedocumented in this encounter Care Teams Web Editor Relationship Specialty Start Date End Date Lovely Vicente MD PCP - General 04/16/[address] [place] [address] documented as of this encounter
--- OUTSIDE RECORDS SUMMARY | 2022-03-13 10:58 | XMS_ITS | Encounter Summary ---
:1945 Author Organization [facility] [place] [address] Care Team Providers Name Role Phone Lovely Vicente MD Primary Care Provider Reason for Visit Auth/Cert Specialty Diagnoses / Procedures Referred By Contact Refer red To Contact Diagnoses Critical lower limb ischemia CELLULITIS RT FOOT Procedures EMERGENCY Referral ID Status Reason Start Date Expiration Date Visits Requ ested Visits Authorized [id number] 1 1 Encounter Details Date Type Department Care Team Description 08/06/2017 Laboratory Appointment Lab at [facility] Ischemia of foot [facility] [place] [address] Social History Tobacco Use Types Packs/Day [...] MD [facility] ER DR CARLYLE [place] 0375 (Wo rk) 05/28/2022 Appointment Cardiology Zulma Dolan MD [facility] er Dr Sarab[place] 0375 (Wo rk) 05/28/2022 Laboratory Appointment Lab 05/28/2022 Office Visit Cardiology Zulma Dolan MD [facility] [place] [address] Liz Poole PA [facility] [place] [address] 06/10/2022 Office Visit Dermatology Laura Scherer MD [facility] ER DR LEZAMA RD-DERMAT [place], [place] 0375 (Wo rk) documented as of [...] Signature Prealbumin 19 (L) 20 - 40 [facility] Comment: Prealbumin levels are [...] Organization Address City/State/[place] [address] (ABNORMAL) Basic Metabolic Panel (non-fasting) (08/06/2017 12:32 PM EST) athologist Signature Glucose Lvl 92 65 - 199 [facility] RYAN mg/dL [facility] Comment: Diabetes: >=200 mg/dL [...] or in patients with acute kidney failure. [email or web address] Specimen Anatomical Collection Method Collection Time Receive d Time (Source) Location / / Volume Laterality Blood specimen 08/06/2017 12:32 8 1:15 (specimen) PM EST PM EST Resulting Agency Comment Spec In Lab Arik Clement MD CHEMISTRY ORDERABLES Performing Organization Address City/State/[place] [address] (ABNORMAL) Hemogram (08/06/2017 12:32 PM EST) Analysis Performed At Patho logist Time Signature WBC 11.8 (H) 4.0 - 9.5 [facility] x10(3)/[facility] LABORATORY RBC 3.49 (L) 4.58 - [facility] 5.54 [facility] x10(6)/[facility] LABORATORY Hemoglobin 9.9 (L) 13.7 - [facility] 16.5 gm/dL [facility] Hematocrit 32.0 (L) 40.5 - [facility] 48.5 % [facility] MCV 91.7 82.9 - [facility] 93.1 [facility] LABORATORY MCH 28.4 27.5 - [place] RYAN 32.1 pg [facility] MCHC 30.9 (L) 32.0 - [facility] 35.7 gm/dL [facility] Platelets 326 145 - 357 [facility] x10(3)/[facility] LABORATORY RDWSD 53.4 (H) 36.0 - [facility] 45.0 [facility] LABORATORY RDWCV 16.0 (H) 11.4 - [facility] 13.8 % [facility] MPV 9.1 7.6 - 12.9 [facility] LABORATORY nRBC % Auto 0.0 % [facility] nRBC Abs Auto 0.000 0.000 - [facility] 0.000 [facility] x10(3)/[facility] LABORATORY Specimen Anatomical Collection Method Collection Time Receive d Time (Source) Location / / Volume Laterality Blood specimen 08/06/2017 12:32 8 1:15 (specimen) PM EST PM EST Resulting Agency Comment Spec In Lab Arik Clement MD HEMATOLOGY ORDERABLES Performing Organization Address City/State/[place] [address] documented in this encounter Visit Diagnoses Diagnosis Ischemia of foot Unspecified circulatory system disorder documented in this encounter Care Teams Industrial Gas Servicer Supervisor Relationship Specialty Start Date End Date Lovely Vicente MD PCP - General 04/16/[address] [place] [address] documented as of this encounter
--- OUTSIDE RECORDS SUMMARY | 2022-03-13 10:58 | XMS_ITS | Encounter Summary ---
:1945 [place] [address] Care Team Providers Name Role Phone Lovely Vicente MD Primary Care Provider Encounter Details Date Type Department Care Team Description 07/29/2017 Hospital Encounter Vascular Lab at Critic monica Huber lower limb [facility] ROHIT [place] [phone] Social History Tobacco Use Types Packs/Day Years [...] Nobles MD [facility] CARDIOLOGY [place], [place] 0375 (Wo rk) 05/28/2022 Appointment Cardiology Zulma Dolan MD [facility] [place], [place] 0375 (Wo rk) 05/28/2022 Laboratory Appointment Lab 05/28/2022 Office Visit Cardiology Zulma Dolan MD [facility] [place] [address] Liz Poole PA [facility] [place] [address] 06/10/2022 Office Visit Dermatology Laura Scherer MD [facility] DR TEJA GR-DERMAT [place]LOGY [place], [place] 0375 (Wo rk) documented as of this encounter Visit Diagnoses Diagnosis Critical lower limb ischemia Unspecified circulatory system disorder documented in this encounter Care Teams Digital Account Coordinator Relationship Specialty Start Date End Date Lovely Vicente MD PCP - General 04/16/[address] [place] [address] documented as of this encounter
--- OUTSIDE RECORDS SUMMARY | 2022-03-13 10:58 | XMS_ITS | Encounter Summary ---
:1945 [place] [address] Care Team Providers Name Role Phone Lovely Vicente MD Primary Care Provider Encounter Details Date Type Department Care Team Description 08/04/2017 Orders Only Cardiac Surgery Makayla Wilson MOLD YARD CRANE OPERATOR [facility] Jorge [facility] [place] [address] CARDIAC SURGERY [phone] [place], [place] 0375 (Wo rk) Social History Tobacco [...] [facility] ER DR CARLYLE SARABIA [place] 0375 (Wo rk) 05/28/2022 Appointment Cardiology Zulma Dolan MD [facility] Dr [place], [place] 0375 (Wo rk) 05/28/2022 Laboratory Appointment Lab 05/28/2022 Office Visit Cardiology Zulma Dolan MD [facility] [place] [address] Liz Poole PA [facility] [place] [address] 06/10/2022 Office Visit Dermatology Laura Scherer MD [facility] ER DR LEZAMA [address]-DERMAT [place], [place] 0375 (Wo rk) documented as of this encounter Visit Diagnoses Not on filedocumented in this encounter Care Teams Government Documents Librarian Relationship Specialty Start Date End Date Lovely Vicente MD PCP - General 04/16/[address] [place] [address] documented as of this encounter
--- OUTSIDE RECORDS SUMMARY | 2022-03-13 10:58 | XMS_ITS | Encounter Summary ---
:1945 [place] [address] Care Team Providers Name Role Phone Lovely Vicente MD Primary Care Provider Encounter Details Date Type Department Care Team Description 07/29/2017 Telephone Pain Aurelia Crawford MD [facility] [place] [address] PAIN CLINIC [phone] [place], [place] 0375 (Wo rk) Social History Tobacco [...] [facility] DR TADEO [place], [place] 0375 (Wo rk) 05/28/2022 Appointment Cardiology Zulma Dolan MD [facility] [place], [place] 0375 (Wo rk) 05/28/2022 Laboratory Appointment Lab 05/28/2022 Office Visit Cardiology Zulma Dolan MD [facility] [place] [address] [facility] [place] [address] 06/10/2022 Office Visit Dermatology Laura Scherer MD [facility] DR LEZAMA RD-DERMAT [facility] [place], [place] 0375 (Wo rk) documented as of this encounter Visit Diagnoses Not on filedocumented in this encounter Care Teams Shirt Operator Relationship Specialty Start Date End Date Lovely Vicente MD PCP - General 04/16/[address] [place] [address] documented as of this encounter
--- OUTSIDE RECORDS SUMMARY | 2022-03-13 10:58 | XMS_ITS | Encounter Summary ---
:1945 Author Organization [facility] [address] Care Team Providers Name Role Phone Lovely Vicente MD Primary Care Provider Reason for Visit Auth/Cert Specialty Diagnoses / Procedures Referred By Contact Refer red To Contact Diagnoses Critical lower limb ischemia CELLULITIS RT FOOT Procedures EMERGENCY Referral ID Status Reason Start Date Expiration Date Visits Requ ested Visits Authorized [id number] 1 1 Encounter Details Date Type Department Care Team Description 08/04/2017 Hospital Encounter XRay at [facility] Danette Maxwell Incisional pain [address] [place] [address] Dr Gomes, MEDICAL ASSOCIATE [facility] [place] [address] CARDIOLOGY [place], [place] [address] Social History Tobacco Use Types [...] MD [facility] DR TADEO [place], [place] 0375 (Wo rk) 05/28/2022 Appointment Cardiology Zulma Dolan MD [facility] Dr [place], [place] 0375 (Wo rk) 05/28/2022 Laboratory Appointment Lab 05/28/2022 Office Visit Cardiology Zulma Dolan MD [facility] [place] [address] Liz Poole PA [facility] [place] [address] 06/10/2022 Office Visit Dermatology Laura Scherer MD [facility] ER DR TEJA GR-DERMAT [place], [place] 0375 (Wo rk) documented as [...] Daniele gutiérrez 08/04/2017 4:13 PM Danette Maxwell MEDICAL ASSOCIATE IMG DX ORDERABLES documented in this encounter Visit Diagnoses Diagnosis Incisional pain Disturbance of skin sensation documented in this encounter Care Teams Proposal Director Relationship Specialty Start Date End Date Lovely Vicente MD PCP - General 04/16/[address] [place] [address] documented as of this encounter
--- OUTSIDE RECORDS SUMMARY | 2022-03-13 10:58 | XMS_ITS | Encounter Summary ---
:1945 Author Organization [facility] [place] [address] Care Team Providers Name Role Phone Lovely Vicente MD Primary Care Provider Encounter Details Date Type Department Care Team Description 08/04/2017 Notes Only Cardiac Surgery Makayla Wilson APRN [facility] [place] [address] CARDIAC SURGERY [phone] [place] [address] (Wo rk) Social History Tobacco Use Types [...] 03/26/2022 Office Visit Cardiology Vitaily Nobles MD [facility] CARDIOLOGY [place], [place] 0375 (Wo rk) 05/28/2022 Appointment Cardiology Zulma Dolan MD [facility] [place], [place] 0375 (Wo rk) 05/28/2022 Laboratory Appointment Lab 05/28/2022 Office Visit Cardiology Zulma Dolan MD [facility] [place] [address] Liz Poole PA [facility] [place] [address] 06/10/2022 Office Visit Dermatology Laura Scherer MD [facility] DR LEZAMA [address]-DERMAT [place], [place] 0375 (Wo rk) documented as of this encounter Visit Diagnoses Not on filedocumented in this encounter Care Teams Variety Lathe Operator Relationship Specialty Start Date End Date Lovely Vicente MD PCP - General 04/16/15 [facility] [address] [place] [address] documented as of this encounter
--- OUTSIDE RECORDS SUMMARY | 2022-03-13 10:58 | XMS_ITS | Encounter Summary ---
:1945 Author Organization [facility] [place] [address] Care Team Providers Name Role Phone Lovely Vicente MD Primary Care Provider Reason for Visit Reason Comments Foot Ulcer WOUND CHECK Auth/Cert Specialty Diagnoses / Procedures Referred By Contact Refer red To Contact Diagnoses Critical lower limb ischemia CELLULITIS RT FOOT Procedures EMERGENCY Referral ID Status Reason Start Date Expiration Date Visits Requ ested Visits Authorized [id number] 1 1 Encounter Details Date Type Department Care Team Description 08/06/2017 [facility] ischemia [facility] [address] [place], [place] VASCULAR SURGERY [address] [place] [address] [phone] Social History Tobacco Use Types Packs/Day Years [...] MD - 08/06/2017 1:00 PM EST [facility] staff: 1. RIGHT leg CLI Interval Hx: [...] Nobles MD [facility] CARDIOLOGY [place], [place] 0[address] (Wo rk) 05/28/2022 Appointment Cardiology Zulma Dolan MD [facility] [place], [place] 0375 (Wo rk) 05/28/2022 Laboratory Appointment Lab 05/28/2022 Office Visit Cardiology Zulma Dolan MD [facility] [place] [address] Liz Poole PA [facility] [place] [address] 06/10/2022 Office Visit Dermatology Laura Scherer MD [facility] DR LEZAMA [address]-DERMAT [place], [place] 0375 (Wo rk) documented as of this encounter Visit Diagnoses Diagnosis Critical lower limb ischemia Unspecified circulatory system disorder documented in this encounter Care Teams Wing Scorer Relationship Specialty Start Date End Date Lovely Vicente MD PCP - General 04/16/15 [facility] [address] [place] [address] documented as of this encounter
--- OUTSIDE RECORDS SUMMARY | 2022-03-13 10:58 | XMS_ITS | Encounter Summary ---
:1945 Author Organization [facility] [place] [address] Care Team Providers Name Role Phone Lovely Vicente MD Primary Care Provider Reason for Visit Reason Comments Pain Management Ankle Pain Toe Pain Encounter Details Date Type Department Care Team Description 07/30/2017 Office Visit Pain Management at Barbra Soares, Per ipheral neuropathy [place] CALL CENTER SUPERVISOR due to ischemia [facility] [address], [place], [place] [phone] Social History Tobacco Use Types Packs/Day Years [...] Soares APRN - 07/30/2017 1:45 PM EST [facility] [place] [address] Phone: PAIN MANAGEMENT NEW PATIENT / CONSULTATION NOTE DATE OF VISIT 07/30/2017 Patient Don Fatima 1945 REFERRING PROVIDER Lovely Vicente MD [address] [place] [address] PRIMARY CARE PROVIDER Lovely Vicente MD CHIEF [...] PAST THERAPIES: Nothing MEDICATIONS The [place] Prescription Monitoring Program was checked and no [...] performed by Manny Mcknight MD at [facility] OR ??? PRO CABG, ARTERIAL, SINGLE N/A 07/07/2017 @CABG, USING ARTERIAL GRAFT;SINGLE ARTERIAL GRAFT (WRVU 33.75) performed by Yuan Retana MD at [facility] OR ??? PRO CABG, ARTERY-VEIN, TWO N/A 07/07/2017 @CABG, TWO VENOUS GRAFTS & ARTERIAL GRAFT (WRVU 7.93) performed by Yuan Retana MD at [facility] OR ??? PRO COLONOSCOPY, REMV LESN, SNARE 01/16/2014 COLONOSCOPY, POLYPECTOMY, REMOVAL LESION BY SNARE performed by Nohemi Jaimes MD at [facility] ENDOSCOPY ??? PRO ENDOSCOPY W/VIDEO-ASST VEIN HARVEST, CABG Right 07/07/2017 ENDOSCOPIC HARVEST VEIN(S) FOR CABG (WRVU 0.31) performed by Yuan Retana MD at [facility] OR ??? PRO THYROIDECTOMY 03/28/2013 THYROIDECTOMY, [...] referral, Lovely Vicente MD [address] [place] [address]. Barbra Soares, MSN, ENGINEERING COORDINATOR-BC, CALL CENTER SUPERVISOR Nurse Practitioner Pain Management Center documented in this encounter Plan of Treatment Upcoming Encounters Date Type Specialty Care Team Description 03/26/2022 Office Visit Cardiology Vitaliy Nobles MD [facility] CARDIOLOGY [place], [place] 0375 (Wo rk) 05/28/2022 Appointment Cardiology Zulma Dolan MD [facility] [place], [place] 0375 (Wo rk) 05/28/2022 Laboratory Appointment Lab 05/28/2022 Office Visit Cardiology Zulma Dolan MD [facility] [place] [address] Liz Poole PA [facility] [place] [address] 06/10/2022 Office Visit Dermatology Laura Scherer MD [facility] DR LEZAMA RD-DERMAT [place], [place] 0375 (Wo rk) documented as of this encounter Visit Diagnoses Diagnosis 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
--- OUTSIDE RECORDS SUMMARY | 2022-03-13 10:58 | XMS_ITS | Encounter Summary ---
:1945 Author Organization [facility] [place] [address] Care Team Providers Name Role Phone Lovely Vicente MD Primary Care Provider Reason for Visit Reason Comments Follow-up Encounter Details Date Type Department Care Team Description 07/29/2017 Office Visit Cardiac Surgery at [facility] Yuan Retana MD S/P CABG x [address] [facility] [place] [address] CARDIOTHORACIC SURGERY [phone] [place], [place] [address] (Wo rk) Social History Tobacco [...] evaluation by vascular surgery. Yuan Retana MD [phone] documented in this encounter Plan of Treatment Upcoming Encounters Date Type Specialty Care Team Description 03/26/2022 Office Visit Cardiology Vitaliy Nobles MD [facility] DR CARLYLE [place], [place] 0375 (Wo rk) 05/28/2022 Appointment Cardiology Zulma Dolan MD [facility] [address] [place] 0[address] (Wo rk) 05/28/2022 Laboratory Appointment Lab 05/28/2022 Office Visit Zulma Garrison MD [facility] [place] [address] Liz Poole PA [facility] [place] [address] 06/10/2022 Office Visit Dermatology Laura Scherer MD [facility] ER DR TEJA GR-DERMAT [place], [place] 0375 (Wo rk) documented as of this encounter Visit Diagnoses Diagnosis S/P CABG x 3 Postsurgical aortocoronary bypass status documented in this encounter Care Teams Manager Home Relationship Specialty Start Date End Date Lovely Vicente MD PCP - General 04/16/15 [facility] [address] [place] [address] documented as of this encounter
--- OUTSIDE RECORDS SUMMARY | 2022-03-13 10:58 | XMS_ITS | Encounter Summary ---
:1945 [place] [address] Care Team Providers Name Role Phone Lovely Vicente MD Primary Care Provider Encounter Details Date Type Department Care Team Description 08/03/2017 Hospital Encounter Radiology Library at [place], Tommy Mijares [facility] [place] [address] VASCULAR SURGERY [phone] [place], [place] 0375 (Wo rk) Social History Tobacco [...] MD [facility] DR TADEO [place], [place] 0375 (Wo rk) 05/28/2022 Appointment Cardiology Zulma Dolan MD [facility] Dr [place], [place] 0[address] (Wo rk) 05/28/2022 Laboratory Appointment Lab 05/28/2022 Office Visit Cardiology Zulma Dolan MD [facility] [place] [address] Liz Poole PA [facility] [place] [address] 06/10/2022 Office Visit Dermatology Laura Scherer MD [facility] DR TEJA GR-DERMAT [place], [place] 0375 (Wo rk) documented as of [...] Time Received Time / Laterality Volume Narrative [facility] - 08/03/2017 6:03 PM EST This exam is for storage only and is aut o-finalizing. Arik Clement MD IMG FILM LIBRARY ORDERABLES Performing Organization Address City/State/ZIP Code Phon e Number [place], [place] documented in this encounter Visit Diagnoses Diagnosis Pain Generalized pain documented in this encounter Care Teams Community Liaison Relationship Specialty Start Date End Date Lovely Vicente MD PCP - General 04/16/[address] [place] [address] documented as of this encounter
--- OUTSIDE RECORDS SUMMARY | 2022-03-13 10:58 | XMS_ITS | Encounter Summary ---
:1945 Author Organization [facility] [place] [address] Care Team Providers Name Role Phone Lovely Vicente MD Primary Care Provider Reason for Visit Auth/Cert Specialty Diagnoses / Procedures Referred By Contact Refer red To Contact Diagnoses Critical lower limb ischemia CELLULITIS RT FOOT Procedures EMERGENCY Referral ID Status Reason Start Date Expiration Date Visits Requ ested Visits Authorized [id number] 1 1 Encounter Details Date Type Department Care Team Description 08/06/2017 Hospital Encounter [facility] [place] [address] Social History Tobacco Use Types Packs/Day [...] MD [facility] CARDIOLOGY [place], [place] 0[address] (Wo rk) 05/28/2022 Appointment Cardiology Zulma Dolan MD [facility] Dr [place], [place] [address] (Wo rk) 05/28/2022 Laboratory Appointment Lab 05/28/2022 Office Visit Cardiology Zulma Dolan MD [facility] [place] [address] Liz Poole PA [facility] [place] [address] 06/10/2022 Office Visit Dermatology Laura Scherer MD [facility] DR TEJA GR-DERMAT [facility] [place], [place] [address] (Wo rk) documented as of this encounter Visit Diagnoses Not on filedocumented in this encounter Care Teams Meat Inspector Relationship Specialty Start Date End Date Lovely Vicente MD PCP - General 04/16/[address] [place] [address] documented as of this encounter
--- OUTSIDE RECORDS SUMMARY | 2022-03-13 10:58 | XMS_ITS | Encounter Summary ---
:1945 Author Organization [facility] [place] [address] Care Team Providers Name Role Phone Lovely Vicente MD Primary Care Provider Reason for Visit Reason Comments Deep Vein Thrombosis Auth/Cert Specialty Diagnoses / Procedures Referred By Contact Refer red To Contact Diagnoses Critical lower limb ischemia CELLULITIS RT FOOT Procedures EMERGENCY Referral ID Status Reason Start Date Expiration Date Visits Requ ested Visits Authorized [id number] 1 1 Encounter Details Date Type Department Care Team Description 08/04/2017 Office Visit Vascular Surgery at Arik Clement Cr itical lower limb [facility] ischemia [facility] [address] [place], [place] VASCULAR SURGERY [address] [place] [address] [phone] Social History Tobacco Use Types Packs/Day Years [...] was discharged on Coumadin. ??He presented to [facility] on 07/20 with mottled toes on the [...] Vitaliy Nobles MD [facility] ER INA BROO[place] 0375 (Mikayla alcaraz) 05/28/2022 Appointment Cardiology Zulma Dolan MD [facility] er INA [place] 0375 (Mikayla alcaraz) 05/28/2022 Laboratory Appointment Lab 05/28/2022 Office Visit Cardiology Zulma Dolan MD [facility] [address] Liz Poole PA [facility] [place] [address] 06/10/2022 Office Visit Dermatology Laura Scherer MD [facility] ER DR LEZAMA RD-DERMAT [place], [place] 0375 (Wo rk) documented as of this encounter Visit Diagnoses Diagnosis Critical lower limb ischemia Unspecified circulatory system disorder documented in this encounter Care Teams Commercial Instructor Supervisor Relationship Specialty Start Date End Date Lovely Vicente MD PCP - General 04/16/[address] [place] [address] documented as of this encounter
--- OUTSIDE RECORDS SUMMARY | 2022-03-13 10:58 | XMS_ITS | Encounter Summary ---
:1945 Author Organization [facility] Address [address] [place] [address] Care Team Providers Name Role Phone Lovely Vicente MD Primary Care Provider Reason for Visit Auth/Cert Specialty Diagnoses / Procedures Referred By Contact Refer red To Contact Diagnoses Critical lower limb ischemia CELLULITIS RT FOOT Procedures EMERGENCY Referral ID Status Reason Start Date Expiration Date Visits Requ ested Visits Authorized [id number] 1 1 Encounter Details Date Type Department Care Team Description 08/04/2017 Laboratory Lab 3L [place] Cardiomyopathy, unspecified type; Appointment 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 status [phone] Social History Tobacco Use Types Packs/Day Years [...] Nobles MD [facility] CARDIOLOGY [place], [place] [address] (Wo rk) 05/28/2022 Appointment Cardiology Zulma Dolan MD [facility] [place], [place] [address] (Wo rk) 05/28/2022 Laboratory Appointment Lab 05/28/2022 Office Visit Cardiology Zulma Dolan MD [facility] [place] [address] Liz Poole PA [facility] [place] [address] 06/10/2022 Office Visit Dermatology Laura Scherer MD [facility] [address] [place], [place] [address] ( rk) documented as of this encounter Procedures Procedure Name Priority Date/Time Associated Diagnosis Comme nts HEMOGRAM Routine 08/04/2017 12:55 Essential Results for this PM EST hypertension, procedure are in malignant the results section. PROTHROMBIN TIME Routine 08/04/2017 12:55 Coronary artery Resu lts for this PM EST rupture procedure are in Ischemic the results cardiomyopathy section. Atherosclerosis of [place] coronary artery, angina presence unspecified, unspecified whether [place] or transplanted heart URIC ACID Routine 08/04/2017 [...] with the results diabetic section. 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 documented in this encounter Results Uric acid (08/04/2017 12:55 PM EST) P athologist Signature Uric Acid 7.1 3.5 - 8.5 [facility] mg/dL [facility] Specimen Anatomical Collection Method Collection Time Receive d Time (Source) Location / / Volume Laterality Blood specimen 08/04/2017 12:55 8 1:01 (specimen) PM EST PM EST Resulting Agency Comment Spec In Lab Lovely Vicente MD CHEMISTRY ORDERABLES Performing Organization Address City/State/[place] [address] (ABNORMAL) Hemogram (08/04/2017 12:55 PM EST) Analysis Performed At Patho logist Time Signature WBC 15.8 (H) 4.0 - 9.5 [place] R[facility] x10(3)/[facility] LABORATORY RBC 3.48 (L) 4.58 - [facility] 5.54 [facility] x10(6)/[facility] LABORATORY Hemoglobin 9.9 (L) 13.7 - [place] [facility] 16.5 gm/dL [facility] Hematocrit 31.4 (L) 40.5 - [place] R[facility]AN 48.5 % [facility] MCV 90.2 82.9 - [facility] 93.1 [facility] LABORATORY MCH 28.4 27.5 - [place] 32.1 pg [facility] MCHC 31.5 (L) 32.0 - [place] 35.7 gm/dL [facility] Platelets 310 145 - 357 [facility] x10(3)/[facility] LABORATORY RDWSD 51.8 (H) 36.0 - [facility] 45.0 [facility] LABORATORY RDWCV 15.8 (H) 11.4 - [place] RY[place] 13.8 % [facility] MPV 8.9 7.6 - 12.9 [facility] LABORATORY nRBC % Auto 0.0 % [facility] nRBC Abs Auto 0.000 0.000 - [facility]AN 0.000 [facility] x10(3)/[facility] LABORATORY Specimen Anatomical Collection Method Collection Time Receive d Time (Source) Location / / Volume Laterality Blood specimen 08/04/2017 12:55 8 1:01 (specimen) PM EST PM EST Resulting Agency Comment Spec In Lab Lovely Vicente MD HEMATOLOGY ORDERABLES Performing Organization Address City/State/[place] [address] (ABNORMAL) Comprehensive metabolic panel (non-fasting) (08/04/2017 12:55 PM EST) P athologist Signature Glucose Lvl 208 (H) 65 - [address] [facility] [facility] mg/dL [facility] Comment: Diabetes: >=200 mg/dL plus symp toms BUN 32 (H) 10 - 20 mg/dL [facility] Creatinine 1.58 (H) 0.80 - 1.50 mg/dL [facility] Sodium 136 135 - 145 mmol/L [facility] Potassium 5.5 (H) 3.5 - 5.0 mmol/L [facility] [...] - 10.5 mg/dL [facility] Total Protein 6.9 6.1 - 8.0 gm/dL [facility] Albumin 3.4 3.2 - 5.2 gm/dL [facility] AST 20 0 - 39 unit/L [facility] ALT 21 0 - 55 unit/L [facility] Alk Phos 93 40 - 120 unit/L [facility] Total Bilirubin 0.4 0.2 - 1.3 mg/dL [facility] Estimated GFR 43 (L) >=60 [place] R[facility] Comment: The reported eGFR should be multiplied b y 1.2 for patients. The MDRD is not an appropriate measure o f renal function for patients with body mass extremes or in patients with acute kidney failure. http://Talentology/DHnkdep http://Talentology/DHMCnkf Specimen Anatomical Collection Method Collection Time Receive d Time (Source) Location / / Volume Laterality Blood specimen 08/04/2017 12:55 8 1:01 (specimen) PM EST PM EST Resulting Agency Comment Spec In Lab Lovely Vicente MD CHEMISTRY ORDERABLES Performing Organization Address City/State/ZIP Code Phon e Number [place] [phone]OS[address] LAB[address]ORY [address] (ABNORMAL) Hemoglobin A1c (08/04/2017 [...] [id number] Est Avg Gluc See note mg/dL [facility] Comment: Estimated Average Glucose not [...] with hemoglobinopathies. Additional resources are available on [facility] ADA website. Macario HAMMOND, Ruthann J, Deysi R, et al. ??Tr anslating the A1C assay into estimated average glucose values. ??Diabetes Care 2008:31(8):3656-0329. Specimen Anatomical Collection Method Collection Time Receive d Time (Source) Location / / Volume Laterality Blood specimen 08/04/2017 12:55 8 1:01 (specimen) PM EST PM EST Resulting Agency Comment Spec In Lab Lovely Vicente MD CHEMISTRY ORDERABLES Performing Organization Address City/State/[place] [address] (ABNORMAL) Prothrombin Time (08/04/2017 12:55 PM EST) P athologist Signature PT 35.4 (H) 11.8 - 14.0 [facility] LABORATORY INR 3.5 (H) 0.9 - 1.1 [facility] [...] Organization Address City/State/[place] [address] (ABNORMAL) pro-Brain Natriuretic Peptide (08/04/2017 12:55 PM EST) P athologist Signature ProBNP 3,133 (H) <=125 [facility] pg[facility]mL [facility] Specimen Anatomical Collection Method Collection Time Receive d Time (Source) Location / / Volume Laterality Blood specimen 08/04/2017 12:55 8 1:01 (specimen) PM EST PM EST Resulting Agency Comment Spec In Lab Danette Maxwell APRN CHEMISTRY ORDERABLES Performing Organization Address City/State/[place] [address] documented in this encounter Visit Diagnoses Diagnosis Cardiomyopathy, unspecified type Systolic congestive heart failure, unspe cified congestive heart failure chronicity Coronary artery rupture Acute myocardial infarction, unspecified site, episode of care unspecified Ischemic cardiomyopathy Other specified forms of chronic ischemi c heart disease Atherosclerosis of [place] coronary arter y, angina presence unspecified, unspecified whether [place] or transplanted heart Essential hypertension, malignant Diabetes mellitus due to underlying cond ition with diabetic nephropathy, unspecified 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
--- OUTSIDE RECORDS SUMMARY | 2022-03-13 10:58 | XMS_ITS | Encounter Summary ---
:1945 [place] [address] Care Team Providers Name Role Phone Lovely Vicente MD Primary Care Provider Encounter Details Date Type Department Care Team Description 08/04/2017 Notes Only Pain Management at Barbra Bruno, STACIE [facility] [place] [address] [place] [address] [phone] (Wo rk) Social History Tobacco Use Types [...] bid) at this time. Barbra Soares, MSN, SOCIAL MEDIA MANAGER-BC, [facility] documented in this encounter Plan of Treatment Upcoming Encounters Date Type Specialty Care Team Description 03/26/2022 Office Visit Cardiology Vitaliy Nobles MD [facility] [address] [place], [place] [address] (Wo rk) 05/28/2022 Appointment Cardiology Zulma Dolan MD [facility] [place], [place] [address] (Wo rk) 05/28/2022 Laboratory Appointment Lab 05/28/2022 Office Visit Cardiology Zulma Dolan MD [facility] [place] [address] Liz Poole PA [facility] [place] [address] 06/10/2022 Office Visit Dermatology Laura Scherer MD [facility] [address] [place], [place] [address] (Wo rk) documented as of this encounter Visit Diagnoses Not on filedocumented in this encounter Care Teams Ict Account Manager Relationship Specialty Start Date End Date Lovely Vicente MD PCP - General 04/16/[address] [place] [address] documented as of this encounter
--- OUTSIDE RECORDS SUMMARY | 2022-03-13 10:58 | XMS_ITS | Encounter Summary ---
:1945 [place] [address] Care Team Providers Name Role Phone Lovely Vicente MD Primary Care Provider Encounter Details Date Type Department Care Team Description 08/04/2017 Notes Only Cardiac Surgery Makayla Wilson NEEDLEWORKER [facility] [place] [address] CARDIAC SURGERY [phone] [place], [place] [address] (Wo rk) Social History Tobacco [...] MD [facility] [address] [place], [place] [address] (Wo rk) 05/28/2022 Appointment Cardiology Zulma Dolan MD [facility] [place], [place] [address] (Wo rk) 05/28/2022 Laboratory Appointment Lab 05/28/2022 Office Visit Cardiology Zulma Dolan MD [facility] [place] [address] Liz Poole PA [facility] [place] [address] 06/10/2022 Office Visit Dermatology Laura Scherer MD [facility] DR [address] [place], [place] [address] (Wo rk) documented as of this encounter Visit Diagnoses Not on filedocumented in this encounter Care Teams Solid Fiber Paster Operator Relationship Specialty Start Date End Date Lovely Vicente MD PCP - General 04/16/[address] [place] [address] documented as of this encounter
--- OUTSIDE RECORDS SUMMARY | 2022-03-13 10:59 | XMS_ITS | Encounter Summary ---
:1945 Author Organization [facility] [address] Care Team Providers Name Role Phone Lovely Vicente MD Primary Care Provider Reason for Visit Reason Comments Foot Pain Auth/Cert Specialty Diagnoses / Procedures Referred By Contact Refer red To Contact Diagnoses Ischemic foot Procedures NAYE OBSVO Referral ID Status Reason Start Date Expiration Date Visits Requ ested Visits Authorized [id number] 1 1 Encounter Details Date Type Department Care Team Description 07/27/2017 Emergency 1 [facility] Lokesh Swenson MD [facility] [address] EMERG[place]Y [place] [address] Femoral artery pseudo-aneurysm, right; [facility] Tam Bauman MD [facility] [address] [place] [address] [place] [address] Social History Tobacco Use Types Packs/Day [...] Gregory Fatima Patient Age: 72 y.o. Language: Azerbaijani Race: White Ethnicity: Not nor Admit date: [...] please contact your inpatient physician through the [facility] Production Manager . Issues after hours and on weekends [...] RLE critical limb ischemia, who presented [place] [facility] with worsening RLE pain. Pt post-op course after CABG was significant for paroxysmal Afib, and he was started on Coumadin given elevated [id number] score. He presented 2 weeks following that, on 07/20, with RLE pain/pallor andwas found to have critical limb ischemia in setting of subtherapeutic INR, pseudoaneurysm Rt [employer] and occlusion b/l ant tibial arteries. He [...] in the last 7068 hours. Invalid input(s): [id number] Recent Labs 07/08/17 0400 07/07/17 0515 07/06/17 [...] (it was low at 1.6 here at [facility]) 7. Use the tramadol if dilaudid or tylenol is not working 8. Stop taking the potassium supplement - your blood potassium level was elevated. Ask your doctors at future visits if this should be restarted. 9. Antibiotic for 5 days recommended by cardiothoracic surgery for chest wound drainage Follow-Up Appointments Vascular surgery as previously schedule Your Inpatient Doctor(s) at [facility]: CARLOS ALBERTO ROSALES MD General Instructions None Future Appointments and Orders Future Appointments Provider Department Dept Phone 07/30/2017 8:30 AM OSWALDO, THREE L Lab 3L [facility] [phone] 07/30/2017 9:40 AM Danette Maxwell APRN [facility] [place] [phone] 08/04/2017 1:00 PM Daniele Mooney [place] [facility] [place] [phone] 08/04/2017 2:15 PM Arik Clement MD [facility] Surgery [facility] [place] [phone] 08/11/2017 10:00 AM [facility] ROOM 2 [facility] [place] [phone] Please go to Biological Lab Technician Area 3T ([place] Location). 08/11/2017 11:00 AM Yuan Retana MD Cardiac Surgery [facility] [place] [phone] 09/07/2017 3:00 PM LAB, THREE L Lab 3L [facility] [phone] 09/07/2017 4:00 PM Luz Prescott MD [facility]ocrinology [facility] [place] [phone] Discharge References/Attachments None documented in this encounter [...] (it was low at 1.6 here at [facility]) 3. Use the tramadol if dilaudid or tylenol is not working 4. Stop taking the potassium supplement - your blood potassium level was elevated. Ask your doctors at future visits if this should be restarted. 5. Antibiotic for 5 days recommended by cardiothoracic surgery for chest wound drainage Follow-Up Appointments Vascular surgery as previously schedule Your Inpatient Doctor(s) at [facility]: CARLOS ALBERTO ROSALES MD documented in [...] Gas) No results found for: PHART, PO2ART, QHT6CLI Assessment/Plan: 72 y.o. male s/p CABG in [...] intervention: Education Nutrition Recommendations: Recommend continuation of [facility], CHO2 diet order Patient and denied [...] Orders Diet Daily Healthy Menu Choices/Cardiac diet ([facility]-Diet) 60/ CHO counting level 2 Frequency: Effective Now Number of Occurrences: Until Specified Admit Weight: 83.92 kg Estimated body mass index is 28.13 kg/(m^2) as calculated from the following: Height as of this encounter: 172.7 cm (5' 8). Weight as of this encounter: 83.9 kg (185 lb). [place] body weight: 68.4 kg (150 lb 12.7 [...] RLE critical limb ischemia, who presented [place] [facility] with worsening RLE pain. Visited with [...] patch for long acting pain management. Mr Fatiam has an appt w us in 8 [...] spent >30 minutes (Day of Discharge Code 57380) involved in the final examination of the [...] Melanoma ID: 72 y.o. Male presents to [facility] with persistent pain b/l lower extremities History of Present Illness: HPI 72 y.o. male with PMH ASCVD s/p CABG (07/07/17), MARIA VICTORIA on CPAP QHS, HTN, HLD, DM2, with recent hospitalization for RLE critical limb ischemia, who presented [place] [facility] with worsening RLE pain. Pt post-op course after CABG was significant for paroxysmal Afib, and he was started on Coumadin given elevated [id number] score. He presented 2 weeks following that, on 07/20, with RLE pain/pallor andwas found to have critical limb ischemia in setting of subtherapeutic INR, pseudoaneurysm Rt [employer] and occlusion b/l ant tibial arteries. He [...] SETUP performed by Manny Mcknight MD at [facility] MAIN OR ??? PRO CABG, ARTERIAL, SINGLE N/A 07/07/2017 @CABG, USING ARTERIAL GRAFT;SINGLE ARTERIAL GRAFT (WRVU 33.75) performed by Yuan Retana MD at [facility] MAIN OR ??? PRO CABG, ARTERY-VEIN, TWO N/A 07/07/2017 @CABG, TWO VENOUS GRAFTS & ARTERIAL GRAFT (WRVU 7.93) performed by Yuan Retana MD at [facility] MAIN OR ??? PRO COLONOSCOPY, REMV LESN, SNARE 01/16/2014 COLONOSCOPY, POLYPECTOMY, REMOVAL LESION BY SNARE performed by Nohemi Jaimes MD at [facility] ENDOSCOPY ??? PRO ENDOSCOPY W/VIDEO-ASST VEIN HARVEST, CABG Right 07/07/2017 ENDOSCOPIC HARVEST VEIN(S) FOR CABG (WRVU 0.31) performed by Yuan Retana MD at [facility] MAIN OR ??? PRO THYROIDECTOMY 03/28/2013 THYROIDECTOMY, TOTAL OR COMPLETE performed by Manny Mcknight MD at [facility] MAIN OR Prior To Admission [...] Procedure Component Value Units Date/Time Blood culture [[id number]] Collected: 07/09/1739 Lab Status: Final result Specimen: Blood from Arm, Right Updated: 07/14/17701 Blood Culture No growth at 5 days. Blood culture [[id number]] Collected: 07/09/170 Lab Status: Final result Specimen: [...] limb ischemia following CABG, who presented to [facility] from home with persistent B/L [...] continued Diet Daily Healthy Menu Choices/Cardiac diet ([facility]) 60/60/75 CHO counting level 2Cardiac, low salt, CHO 2 Discharge planning Pending improvement in pain control PT/OT/Speech PT ordered Lines/Access PIV Ocasio catheter No DVT/GI Prophylaxis Lovenox bridge to Coumadin, SCD. Code status Full Code Family PCP Lovely Vicente MD [phone] Attestation Please see my note for details [...] encounter Miscellaneous Notes Plan of Care - [place]-Joyce Damian, PT - 07/27/2017 3:26 PM EST [...] Anticipated Discharge Disposition: home with assist Pager: [phone] JOYCE KING, PT Inpatient Physical Therapy 2017 [...] patient's evaluation including the following functional test(s) [facility]. Current ability measures, co-morbidities and clinical [...] a lovenox bridge. Mr. Fatima returns to [facility] tonight because of ongoing pain [...] SETUP performed by Manny Mcknight MD at [facility] MAIN OR ??? PRO CABG, ARTERIAL, SINGLE N/A 07/07/2017 @CABG, USING ARTERIAL GRAFT;SINGLE ARTERIAL GRAFT (WRVU 33.75) performed by Yuan Retana MD at [facility] MAIN OR ??? PRO CABG, ARTERY-VEIN, TWO N/A 07/07/2017 @CABG, TWO VENOUS GRAFTS & ARTERIAL GRAFT (WRVU 7.93) performed by Yuan Retana MD at [facility] MAIN OR ??? PRO COLONOSCOPY, REMV LESN, SNARE 01/16/2014 COLONOSCOPY, POLYPECTOMY, REMOVAL LESION BY SNARE performed by Nohemi Jaimes MD at [facility] ENDOSCOPY ??? PRO ENDOSCOPY W/VIDEO-ASST VEIN HARVEST, CABG Right 07/07/2017 ENDOSCOPIC HARVEST VEIN(S) FOR CABG (WRVU 0.31) performed by Yuan Retana MD at [facility] MAIN OR ??? PRO THYROIDECTOMY 03/28/2013 THYROIDECTOMY, TOTAL OR COMPLETE performed by Manny Mcknight MD at [facility] MAIN OR MEDICATIONS: No current [...] up in clinic 1-2 weeks after discharge. [facility] Vascular Surgery Plan of Care [...] MD [facility] [address] [place], [place] [address] (Wo rk) 05/28/2022 Appointment Cardiology Zulma Dolan MD [facility] [address] [place], [place] [address] (Wo rk) 05/28/2022 Laboratory Appointment Lab 05/28/2022 Office Visit Cardiology Zulma Dolan MD [facility] [place] [address] Liz Poole PA [facility] Cardiology [place] [address] 06/10/2022 Office Visit Dermatology Laura Scherer MD [facility] [address] [place], [place] [address] (Wo rk) documented as of [...] section. TYPE AND SCREEN STAT 07/27/2017 12:53 ([facility]SHANDA) AM EST BASIC METABOLIC PANEL STAT 07/27/2017 12:53 Re sults for this (NON-FASTING) AM EST procedure are in the results section. documented in this encounter Results POCT Glucose (07/27/2017 11:53 AM EST) P athologist Signature POC Glucose 175 65 - 199 [facility] mg/dL [facility] Comment: Supplemental ranges: <140 mg/dL before meals <180 mg/dL all other times of the day Specimen Anatomical Collection Method Collection Time Receive d Time (Source) Location / / Volume Laterality Blood specimen 07/27/2017 11:53 8 (specimen) AM EST 11:53 AM EST Tam Bauman MD POINT OF CARE TEST ORDERABLE S Performing Organization Address City/State/[place] [address] Arterial Duplex Leg, Unil (07/27/2017 7:40 AM EST) Component Value Ref Test Analysis Performed At Patholo gist Range Method Time Signature VB Text Department: Vascular Surgery Lab VASCUBASE Report Patient: [id number] (GREGORY FATIMA) CPT: 90526 ICD10: I97.610;I72.4;Z09 Referring Physician: TAM BAUMAN ?? [...] Glucose 96 65 - 199 [facility] mg/dL [facility] Comment: Supplemental ranges: <140 mg/dL before meals <180 mg/dL all other times of the day Specimen Anatomical Collection Method Collection Time Receive d Time (Source) Location / / Volume Laterality Blood specimen 07/27/2017 6:51 AM 018 6:51 (specimen) EST AM EST Tam Bauman MD POINT OF CARE TEST ORDERABLE S Performing Organization Address City/State/ZIP [place] [address] ABORH Recheck Status (07/27/2017 [...] Organization Address City/State/ZIP Code Phon e Number [address] Gold Tube HOLD (07/27/2017 12:53 AM EST) P athologist Signature Gold Hold Sample in [facility]. [facility] Specimen Anatomical Collection Method Collection Time Receive d Time (Source) Location / / Volume Laterality Blood specimen Venous Draw / 07/27/2017 12:53 07/27/19 18 1:01 (specimen) Unknown AM EST AM EST Angela Swenson MD CHEMISTRY ORDERABLES Performing Organization Address City/[facility]/ZIP Code Phon e Number [address] (ABNORMAL) Differential, Automated (07/27/2017 12:53 AM EST) Patholo gist Method Time Signature Neutrophils % 75.0 % [facility] LABORATORY Neutr Abs (ANC) 11.30 (H) 1.70 - [facility] 6.10 [facility] x10(3)/[facility] LABORATORY Lymphocytes % 9.9 % [facility] LABORATORY Lymphocytes Abs 1.5 0.9 - 3.2 [facility] x10(3)/[facility] LABORATORY Monocytes % 8.6 % [facility] LABORATORY Monocyte Abs 1.3 (H) 0.3 - 0.9 [facility] x10(3)/[facility] LABORATORY Eosinophils % 4.8 % [facility] LABORATORY Eosinophils Abs 0.7 (H) 0.0 - 0.4 [facility] x10(3)/[facility] LABORATORY Basophils % 0.8 % [facility] LABORATORY Basophils Abs 0.1 0.0 - 0.1 [facility] x10(3)/[facility] LABORATORY Immature Gran % 0.90 % [facility] Comment: Immature granulocytes(IG's)percentage an d absolute count will include metamyelocytes, myelocytes, and promyelo cytes. Blood smears from CBCs yielding IG's will be scanned manually for concor dance. If this scan disagrees with the automated IG or if promyelocytes are not ed, a manual differential will be performed. Melisa Gran Abs 0.13 (H) 0.00 - 0.04 x10(3)/[facility] LABORATORY Specimen Anatomical Collection Method Collection Time Receive d Time (Source) Location / / Volume Laterality Blood specimen 07/27/2017 12:53 8 1:00 (specimen) AM EST AM EST Resulting Agency Comment Spec In Lab Angela Swenson MD HEMATOLOGY ORDERABLES Performing Organization Address City/State/ZIP [place] [address] (ABNORMAL) Hemogram (07/27/2017 12:53 AM EST) Analysis Performed At Patho logist Time Signature WBC 15.0 (H) 4.0 - 9.5 [facility] x10(3)/[facility] LABORATORY RBC 3.59 (L) 4.58 - [facility] 5.54 [facility] x10(6)/[facility] LABORATORY Hemoglobin 10.3 (L) 13.7 - [facility] 16.5 gm/dL [facility] Hematocrit 32.6 (L) 40.5 - [facility] 48.5 % [facility] MCV 90.8 82.9 - [facility] 93.1 [facility] LABORATORY MCH 28.7 27.5 - [facility] 32.1 pg [facility] MCHC 31.6 (L) 32.0 - [facility] 35.[facility] gm/dL [facility] Platelets 322 145 - 357 [facility] x10(3)/[facility] LABORATORY RDWSD 48.7 (H) 36.0 - [facility] 45.0 [facility] LABORATORY RDWCV 14.7 (H) 11.4 - [facility] 13.8 % [facility] MPV 8.9 7.6 - 12.9 [facility] LABORATORY nRBC % Auto 0.0 % [facility] LABORATORY nRBC Abs Auto 0.000 0.000 - [facility] 0.000 [facility] x10(3)/[facility] LABORATORY Specimen Anatomical Collection Method Collection Time Receive d Time (Source) Location / / Volume Laterality Blood specimen 07/27/2017 12:53 8 1:00 (specimen) AM EST AM EST Resulting Agency Comment Spec In Lab Angela Swenson MD HEMATOLOGY ORDERABLES Performing Organization Address City/[facility]/[place] [address] Antibody screen (07/27/2017 12:53 AM EST) Patholo gist Method Time Signature Ab Screen Negative [facility] LABORATORY Expires at 07/30/2017 [facility] 2359 on: [facility] Specimen Anatomical Collection Method Collection Time Receive d Time (Source) Location / / Volume Laterality Blood specimen 07/27/2017 12:53 8 (specimen) AM EST 12:58 AM EST Resulting Agency Comment Spec In Lab Angela Swenson MD BLOOD BANK ORDERABLES Performing Organization Address City/[facility]/[place] [address] ABO/Rh Typing (07/27/2017 12:53 [...] MD BLOOD BANK ORDERABLES Performing Organization Address City/[facility] [place] [address] (ABNORMAL) Prothrombin Time (07/27/2017 [...] Organization Address City/State/ZIP [place] [address] (ABNORMAL) Basic Metabolic Panel (non-fasting) (07/27/2017 12:53 AM EST) athologist Signature Glucose Lvl 95 65 - 199 [facility] mg/dL [facility] Comment: Diabetes: >=200 mg/dL plus symp toms BUN 37 (H) 10 - 20 mg/dL [facility] LABORATORY Creatinine 1.49 0.80 - 1.50 [...] HOSPITAL LABORATORY Estimated GFR 46 (L) >=60 [facility] Comment: The reported eGFR should be multiplied b y 1.2 for patients. The MDRD is not an appropriate measure o f renal function for patients with body mass extremes or in patients with acute kidney failure. 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
--- OUTSIDE RECORDS SUMMARY | 2022-03-13 10:59 | XMS_ITS | Encounter Summary ---
:1945 [place] [address] Care Team Providers Name Role Phone Lovely Vicente MD Primary Care Provider Reason for Visit Reason Comments Hospital Transfer cold foot post CABG Auth/Cert Specialty Diagnoses / Procedures Referred By Contact Refer red To Contact Diagnoses Critical lower limb ischemia Procedures NAYE IPI Referral ID Status Reason Start Date Expiration Date Visits Requ ested Visits Authorized [id number] 1 1 Encounter Details Date Type Department Care Team Description 07/20/2017 Hospital Encounter 4 Herminia Ibarra MD [facility] [address] Critical lower limb [facility] Arik Clement MD [facility] [place] [address] [place] [address] Social History Tobacco Use Types Packs/Day Years [...] home. Important Studies and Lab Data: Labs: [email or web address] Lab Results Component Value Date INR 1.5 [...] For any problems or questions please call [phone] ZELDA Smith, consumer relations specialist Nurse Clinician For issues on weeknights after 5pm and weekends please call [phone] and ask for the Vascular Fellow nutrition partner. General Instructions None Future Appointments and Orders Future Appointments Provider Department Dept Phone 08/04/2017 1:00 PM Daniele Mooney [place] [facility] at [place] [phone] 08/04/2017 2:15 PM Arik Clement MD Vascular Surgery at [place] [phone] 09/07/2017 3:00 PM MAYRA CHACON Lab [facility] [phone] 09/07/2017 4:00 PM Luz Prescott MD Endocrinology at [place] [phone] Future Orders Complete By Expires Arterial Duplex Leg, Unil [VAS32 Custom] 07/27/2017 (Approximate) 01/26/2018 Process Instructions: There is no in-house vascular greens laborer available on weeknights (5pm-8am), weekends, or holidays. IF THIS IS A REQUEST FOR AN EMERGENT STUDY DURING THOSE HOURS, please have the senior provider responsible for the patient page the Vascular Surgery Fellow/Senior Resident nutrition partner to discuss options. Scheduling Instructions: Questions: Indication for study/signs & symptoms: Right femoral PSA s/p cardiac cath Question to be answered: bloodflow to PSA Laterality: Right Is there a RIGHT LOWER EXTREMITY graft?: No Lower limb right segments: Common Femoral Is there a stent?: No At which location will this be performed?: [place] Referral to Home Health - at DISCHARGE [[id number] CPT(R)] As directed Process Instructions: Scheduling Instructions: Comments: DOCUMENTATION FOR VNA SERVICES (INCLUDING THOSE PATIENTS WITH MEDICARE COVERAGE REQUIRING HOME VNA SERVICES AND/OR HOSPICE SERVICES) PATIENT'S LOCATION: Gregory Fatima [address] [place] [address] [place] [phone] (home) Cell: Telephone Information: Print Support Specialist's Name: self In discussion with the attending physician, it is certified that this patient is under their care and that they, or a Nurse Practitioner,Clinical Nurse specialist or Physician General Engineering Teacher who is working directly with them, [...] [facility] ([facility] [place] [facility]-is in [place] PHONE: [phone] FAX: [phone] Start of care: 24- 48 hours FOR [...] patient'sPCP: Lovely Vicente MD [address] [facility] [place] / [place] [address] All VNA agencies which cover the area [...] For any problems or questions please call [phone] ZELDA Smith, consumer relations specialist Nurse Clinician For issues on weeknights after 5pm and weekends please call [phone] and ask for the Vascular Fellow nutrition partner. documented in this encounter Medications at Time [...] RN - 07/20/2017 2:53 PM EST The patient/telephone service representative has been provided a list of Home Health Agencies/DME vendors which serve their preferred geographic area. A letter describing our affiliations was reviewed with them and theywere educated about their right to choose where referrals are placed. Patient requests referral to [facility] [employer] PHONE: [phone] FAX: [phone]. Expected date of discharge: 07/20/2017 . Referral routed to the Travel Writer for matching with agency/vendor and to provide any required information. Naty Pulliam RN - 07/20/2017 11:37 AM EST The patient/telephone service representative has been provided a list of Home Health Agencies/DME vendors which serve their preferred geographic area. A letter describing our affiliations was reviewed with them and theywere educated about their right to choose where referrals are placed. Patient requests referral to [facility] ([facility] [place] [facility]- is in [facility] PHONE: [phone] FAX: [phone]. Expected date of discharge: 07/20/2017 . Referral routed to the Travel Writer for matching with agency/vendor and to provide any required information. Katina Pulliam RNfamily preservation officer Janneth Lee MD - 07/20/2017 7:29 AM [...] SETUP performed by Manny Mckinght MD at [facility] MAIN OR ??? PRO CABG, ARTERIAL, SINGLE N/A 07/07/2017 @CABG, USING ARTERIAL GRAFT;SINGLE ARTERIAL GRAFT (WRVU 33.75) performed by Yuan Retana MD at [facility] MAIN OR ??? PRO CABG, ARTERY-VEIN, TWO N/A 07/07/2017 @CABG, TWO VENOUS GRAFTS & ARTERIAL GRAFT (WRVU 7.93) performed by Yuan Retana MD at [facility] MAIN OR ??? PRO COLONOSCOPY, REMV LESN, SNARE 01/16/2014 COLONOSCOPY, POLYPECTOMY, REMOVAL LESION BY SNARE performed by Nohemi Jaimes MD at [facility] ENDOSCOPY ??? PRO ENDOSCOPY W/VIDEO-ASST VEIN HARVEST, CABG Right 07/07/2017 ENDOSCOPIC HARVEST VEIN(S) FOR CABG (WRVU 0.31) performed by Yuan Retana MD at [facility] MAIN OR ??? PRO THYROIDECTOMY 03/28/2013 THYROIDECTOMY, TOTAL OR COMPLETE performed by Manny Mcknight MD at [facility] MAIN OR Functional Status/Social Hx: Social History [...] -ISS -pain control Discussed with Vascular Fellow nutrition partner. Chris Valadez MD PGY2 Pager [phone] documented in this encounter ED Notes Annita Reaves MD - 07/20/2017 3:15 PM EST Emergency Department Gregory Fatima is a 72 y.o. male who presents to [facility] with arterial thrombosis. History of Present Illness [...] 04/05/2013 Hospitalizations Within the Past 30 Days: [facility] 07/05/17 Anticipated Length Of Stay (If known): [...] Health/Prescription Coverage: Primary Insurance: MEDICARE Secondary Insurance: [employer] [facility] Prescription Coverage: See above Preferred Pharmacy: [facility] Other: N/A Primary Care Provider: Lovely Vicente MD [phone] Patient/Caregiver Goals of Treatment: Patient plans to return home when medically ready Potential Needs for Transition of Care: Rehab/SNF: N/A Home Health: Yasmani [facility] ([facility] [place] [facility]-is in [place]) PHONE: [phone] FAX: [phone] DME: N/A Dialysis: N/A Community Resources: N/A Transportation: Patient family will transport Other: N/A Anticipated Barriers to Discharge/Special Considerations: None Plan: Patient plans to return home with home health services when medically ready A member of the Care Management team will continue to monitor progress, follow for continuity of care and assist with transition of care planning. Naty Pulliam, RN Pager: [phone] ED Triage - Rayna Weir RN - 07/20/2017 12:28 AM EST Pt transferred from [place] for blue right foot and painful toes. [...] Nobles MD [facility] [address] [place] [place], [place] [address] (Wo rk) 05/28/2022 Appointment Cardiology Zulma Dolan MD [facility] [address] [place] [address] (Wo rk) 05/28/2022 Laboratory Appointment Lab 05/28/2022 Office Visit Cardiology Zulma Dolan MD [facility] [place] [address] [facility] [place] [address] 06/10/2022 Office Visit Dermatology Laura Scherer MD [facility] DR [address] [facility] [place] [address] (Wo rk) documented as of this encounter Procedures Procedure Name Priority Date/Time Associated Comments Diagnosis RELEASE ENGINEER SCAN 09/02/2017 12:00 Res ults for this [...] TO LAB EST procedure are i n ([facility]P) the results section. APTT STAT 07/20/2017 2:25 AM Results f or this EST procedure are i n the results section. PROTHROMBIN TIME STAT 07/20/2017 2:25 AM Resul ts for this EST procedure are i n the results section. BASIC METABOLIC PANEL STAT 07/20/2017 2:25 AM Results for this (NON-FASTING) EST procedure are in the results section. documented in this encounter Results SCAN DOC: RELEASE ENGINEER (09/02/2017 12:00 AM EST) Narrative 09/02/2017 12:00 AM EST This result has an attachment that is no t available. Ordered by an unspecified provider. Scanning Provider MEDIA MGR SCAN EXT ORDR/RSLT POCT Glucose (07/20/2017 12:04 PM EST) P athologist Signature POC Glucose 189 65 - 199 [facility] mg/dL [facility] Comment: Supplemental ranges: <140 mg/dL before meals <180 mg/dL all other times of the day Specimen Anatomical Collection Method Collection Time Receive d Time (Source) Location / / Volume Laterality Blood specimen 07/20/2017 12:04 7 (specimen) PM EST 12:04 PM EST Arik Clement MD POINT OF CARE TEST ORDERABLE S Performing Organization Address City/State/[place] [address] (ABNORMAL) Differential, Automated (07/20/2017 10:34 AM EST) Patholo gist Method Time Signature Neutrophils % 84.3 % [facility]ORY Neutr Abs (ANC) 14.27 (H) 1.70 - [facility] 6.10 [facility] x10(3)/[facility] LABORATORY Lymphocytes % 5.6 % [facility] Lymphocytes Abs 1.0 0.9 - 3.2 [facility] x10(3)/[facility] LABORATORY Monocytes % 6.1 % [facility] Monocyte Abs 1.0 (H) 0.3 - 0.9 [facility] x10(3)/[facility] LABORATORY Eosinophils % 2.4 % [facility]ORY Eosinophils Abs 0.4 0.0 - 0.4 [facility] x10(3)/[facility] LABORATORY Basophils % 0.5 % [facility]ORY Basophils Abs 0.1 0.0 - 0.1 [facility] x10(3)/[facility] LABORATORY Immature Gran % 1.10 % [facility] Comment: Immature granulocytes(IG's)percentage an d absolute count will include metamyelocytes, myelocytes, and promyelo cytes. Blood smears from CBCs yielding IG's will be scanned manually for concor danhaley. If this scan disagrees with the automated IG or if promyelocytes are not ed, a manual differential will be performed. Melisa Gran Abs 0.19 (H) 0.00 - 0.04 x10(3)/[facility] LABORATORY Specimen Anatomical Collection Method Collection Time Receive d Time (Source) Location / / Volume Laterality Blood specimen 07/20/2017 10:34 7 (specimen) AM EST 10:39 AM EST Resulting Agency Comment Spec In Lab Arik Clement MD HEMATOLOGY ORDERABLES Performing Organization Address City/State/[place] [address] (ABNORMAL) Hemogram (07/20/2017 10:34 AM EST) Analysis Performed At Patho logist Time Signature WBC 17.0 (H) 4.0 - 9.5 [facility] x10(3)/[facility] LABORATORY RBC 3.70 (L) 4.58 - [facility] 5.54 [facility] x10(6)/[facility] LABORATORY Hemoglobin 10.8 (L) 13.7 - [facility] 16.5 gm/dL [facility] Hematocrit 33.4 (L) 40.5 - [facility] 48.5 % [facility] MCV 90.3 82.9 - [facility] 93.1 [facility] LABORATORY MCH 29.2 27.5 - [facility] 32.1 pg [facility] MCHC 32.3 32.0 - [facility] 35.7 gm/dL [facility] Platelets 211 145 - 357 [facility] x10(3)/[facility] LABORATORY RDWSD 49.1 (H) 36.0 - [facility] 45.0 [facility] LABORATORY RDWCV 14.7 (H) 11.4 - [facility] 13.8 % [facility] MPV 9.2 7.6 - 12.9 [facility] LABORATORY nRBC % Auto 0.0 % [facility]ORY nRBC Abs Auto 0.000 0.000 - [facility] 0.000 [facility] x10(3)/[facility] LABORATORY Specimen Anatomical Collection Method Collection Time Receive d Time (Source) Location / / Volume Laterality Blood specimen 07/20/2017 10:34 7 (specimen) AM EST 10:39 AM EST Resulting Agency Comment Spec In Lab Arik Clement MD HEMATOLOGY ORDERABLES Performing Organization Address City/[facility]/[place] [address] (ABNORMAL) APTT (07/20/2017 10:34 AM EST) P athologist Signature PTT 79 (H) 25 - 35 sec [facility] Comment: The recommended therapeutic range for fu ll dose, unfractionated heparin at [facility] is 80 ? 114 seconds. The use [...] Address City/[facility]/ZIP Code Phon e Number [address] POCT Glucose (07/20/2017 7:41 AM EST) P athologist Signature POC Glucose 174 65 - 199 [facility] mg/dL [facility] Comment: Supplemental ranges: <140 mg/dL before meals <180 mg/dL all other times of the day Specimen Anatomical Collection Method Collection Time Receive d Time (Source) Location / / Volume Laterality Blood specimen 07/20/2017 7:41 AM 017 7:41 (specimen) EST AM EST Arik Clement MD POINT OF CARE TEST ORDERABLE S Performing Organization Address City/[facility]/ZIP Code Phon e Number [address] JULIAN, legs, multiple levels (07/20/2017 7:33 AM EST) Component Value Ref Test Analysis Performed At Patholo gist Range Method Time Signature VB Text Department: Vascular Surgery Lab VASCUBASE Report Patient: [id number] (GREGORY FATIMA) CPT: 14581 ICD10: I75.021;I99.8 Referring Physician: ARIK CLEMENT ?? [...] Department: Vascular Surgery Lab VASCUBASE Report Patient: [id number] (GREGORY FATIMA) CPT: 74377 ICD10: I97.610;I99.8 Referring Physician: ARIK CLEMENT ?? [...] Signature POC Glucose 199 65 - 199 [facility] mg/dL [facility] Comment: Supplemental ranges: <140 mg/dL before meals <180 mg/dL all other times of the day Specimen Anatomical Collection Method Collection Time Receive d Time (Source) Location / / Volume Laterality Blood specimen 07/20/2017 3:41 AM 017 3:41 (specimen) EST AM EST Arik Clement MD POINT OF CARE TEST ORDERABLE S Performing Organization Address City/[facility]/[place] [address] Lactate, whole blood, send to lab ([facility]/CGP) (07/20/2017 2:25 AM EST) P athologist Signature Lactate WB 2.0 0.5 - 2.2 [facility] mmol/L [facility] Specimen Anatomical Collection Method Collection Time Receive d Time (Source) Location / / Volume Laterality Blood specimen Venous Draw / 07/20/2017 2:25 AM 2016 2:37 (specimen) Unknown EST AM EST Resulting Agency Comment Spec In Lab Zulma Samuel MD CHEMISTRY ORDERABLES Performing Organization Address [facility]/[place] [address] (ABNORMAL) APTT (07/20/2017 2:25 AM EST) P athologist Signature PTT 36 (H) 25 - 35 sec [facility] Comment: The recommended therapeutic range for fu ll dose, unfractionated heparin at [facility] is 80 ? 114 seconds. The use [...] Reaves MD HEMATOLOGY ORDERABLES Performing Organization Address City/[facility]/[place] [address] (ABNORMAL) Prothrombin Time (07/20/2017 [...] Address City/State/[place] [address] (ABNORMAL) Basic Metabolic Panel (non-fasting) (07/20/2017 2:25 AM EST) athologist Signature Glucose Lvl 187 65 - 199 [facility] mg/dL [facility] Comment: Diabetes: >=200 mg/dL plus symp toms BUN 35 (H) 10 - 20 mg/dL [facility] Creatinine 1.51 (H) 0.80 - 1.50 mg/dL [facility] LABORATORY Sodium 134 (L) 135 - 145 mmol/L [facility] Potassium Not Perf 3.5 - 5.0 mmol/L [facility] Comment: Specimen hemolyzed. Called by: [facility], Read back by: Chitra Orantes, Date/Time:07/20/17 03:05. Please note: ??Patients with WBC >100,00 0 may have falsely elevated Potassium levels. ??For accurate Potassium quantif ication in these patients send serum separator tube (gold top) for subsequent determinations. ??Contact the Clinical Chemistry Laboratory if there are any qu estions. Chloride 92 (L) 98 - 107 mmol/L [facility] CO2 29 22 - 31 mmol/L [facility] Anion Gap 13 5 - 15 mmol/L [facility] Calcium 8.6 8.5 - 10.5 mg/dL [facility] Estimated GFR 46 (L) >=60 [facility] Comment: The reported eGFR should be multiplied b y 1.2 for patients. The MDRD is not an appropriate measure o f renal function for patients with body mass extremes or in patients with acute kidney failure. http://[employer]/DHnkdep http://[employer]/DHMCnkf Specimen Anatomical Collection Method Collection Time Receive d Time (Source) Location / / Volume Laterality Blood specimen 07/20/2017 2:25 AM 017 2:33 (specimen) EST AM EST Resulting Agency Comment Spec In Lab Annita Reaves MD CHEMISTRY ORDERABLES Performing Organization Address City/State/[place] [address] documented in this encounter [...] to med 0-8,000 Units, Intravenous, BOLUS PER [facility] PROTOCOL, Starting Wed07/20/17 at 0424, [...]
Routine documented in this encounter Care Teams Employee Communications Manager Relationship Specialty Start Date End Date Lovely Vicente MD PCP - General 04/16/[address] [place] [address] [address] [place] [address] documented as of this encounter
--- OUTSIDE RECORDS SUMMARY | 2022-03-13 10:59 | XMS_ITS | Encounter Summary ---
:1945 Author Organization [facility] [place] [address] Care Team Providers Name Role Phone Lovely Vicente MD Primary Care Provider Encounter Details Date Type Department Care Team Description 07/24/2017 Telephone Vascular Surgery Melba Bob [facility] [place] [address] [facility] [phone] VASCULAR SURGERY [place], [place] [address] (Wo rk) Social History Tobacco [...] was discharged on Coumadin. ??He presented to [facility] [place] [place] on 07/20 with mottled toes on the [...] MD [facility] [address] [place] [address] (Wo rk) 05/28/2022 Appointment Cardiology Zulma Dolan MD [facility] [address] [place] [address] (Wo rk) 05/28/2022 Laboratory Appointment Lab 05/28/2022 Office Visit Zulma Garrison MD [facility] [place] [address] Liz Poole PA [facility] [place] [address] 06/10/2022 Office Visit Dermatology Laura Scherer MD [facility] ER DR [address] [place], [place] [address] (Wo rk) documented as of this encounter Visit Diagnoses Not on filedocumented in this encounter Care Teams Fell Cutter Relationship Specialty Start Date End Date Lovely Vicente MD PCP - General 04/16/[address] [place] [address] documented as of this encounter
--- OUTSIDE RECORDS SUMMARY | 2022-03-13 10:59 | XMS_ITS | Encounter Summary ---
:1945 [place] [address] Care Team Providers Name Role Phone Lovely Vicente MD Primary Care Provider Reason for Visit Reason Onset Date Comments Questions 07/16/2017 fluid retention Encounter Details Date Type Department Care Team Description 07/16/2017 Telephone Cardiology at [facility] Martha Comer, Questions ([facility] RN retention ) [place] [address] Social History Tobacco Use Types Packs/Day [...] the direct number to the HF team ([phone]). She is aware of his appt with YOUTH OFFICER Hans on 07/21/17 and the need for labs prior to that visit. verbalized good understanding of the current POC. documented in this encounter Plan of Treatment Upcoming Encounters Date Type Specialty Care Team Description 03/26/2022 Office Visit Cardiology Vitaliy Nobles MD [facility] DR [address] [place], [place] [address] (Wo rk) 05/28/2022 Appointment Cardiology Zulma Dolan MD [facility] [place], [place] [address] (Wo rk) 05/28/2022 Laboratory Appointment Lab 05/28/2022 Office Visit Cardiology Zulma Dolan MD [facility] [place] [address] Liz Poole PA [facility] [place] [address] 06/10/2022 Office Visit Dermatology Laura Scherer MD [facility] DR [address] [place], [place] [address] (Wo rk) documented as of this encounter Visit Diagnoses Not on filedocumented in this encounter Care Teams Stage Technician Relationship Specialty Start Date End Date Lovely Vicente MD PCP - General 04/16/[address] [place] [address] documented as of this encounter
--- OUTSIDE RECORDS SUMMARY | 2022-03-13 10:59 | XMS_ITS | Encounter Summary ---
:1945 [place] [address] Care Team Providers Name Role Phone Lovely Vicetne MD Primary Care Provider Encounter Details Date Type Department Care Team Description 07/16/2017 Telephone Endocrinology at [facility] C Manuela Hollidya, [facility] [place] [address] ENDOCRINOLOGY DEPT [phone] [place], [place] [address] (Wo rk) Social History Tobacco [...] Nobles MD [facility] DR [address] [place], [place] [address] (Wo lissa) 05/28/2022 Appointment Cardiology Zulma Dolan MD [facility] [address] [address] (Wo rk) 05/28/2022 Laboratory Appointment Lab 05/28/2022 Office Visit Cardiology Zulma Dolan MD [facility] [place] [address] Liz Poole PA [facility] [place] [address] 06/10/2022 Office Visit Dermatology Laura Scherer MD [facility] DR TE[address] [place], [place] [address] (Wo rk) documented as of this encounter Visit Diagnoses Not on filedocumented in this encounter Care Teams Crm Marketing Manager Relationship Specialty Start Date End Date Lovely Vicente MD PCP - General 04/16/[address] [place] [address] documented as of this encounter
--- OUTSIDE RECORDS SUMMARY | 2022-03-13 10:59 | XMS_ITS | Encounter Summary ---
:1945 Author Organization [facility] [place] [address] Care Team Providers Name Role Phone Lovely Vicente MD Primary Care Provider Reason for Visit Reason Onset Date Comments Other 07/22/2017 lovenox bridge Encounter Details Date Type Department Care Team Description 07/22/2017 Telephone Cardiology at [facility] Court Cadena RN Other (lovenox bridge) [place] [address] Social History Tobacco Use Types Packs/Day [...] 4:49 PM EST VAMSI Del Castillo, at [facility], called earlier today with a question re: lovenox bridge for this patient who was recently discharged from [facility] r/t a blood clot. Discharge note faxed to [facility] (fax# [phone], Ph#: [phone]) which contains instructions r/t lovenox bridge as [...] [facility] [address] [place], [place] [address] (Wo rk) 05/28/2022 Appointment Cardiology Zulma Dolan MD [facility] [address] [place], [place] [address] (Wo rk) 05/28/2022 Laboratory Appointment Lab 05/28/2022 Office Visit Cardiology Zulma Dolan MD [facility] [place] [address] Liz Poole PA [facility] [place] [address] 06/10/2022 Office Visit Dermatology Laura Scherer MD [facility] [address] [place], [place] [address] (Wo rk) documented as of this encounter Visit Diagnoses Not on filedocumented in this encounter Care Teams Non Destructive Testing Scientist Relationship Specialty Start Date End Date Lovely Vicente MD PCP - General 04/16/[address] [place] [address] documented as of this encounter
--- OUTSIDE RECORDS SUMMARY | 2022-03-13 11:00 | XMS_ITS | Encounter Summary ---
:1945 Author Organization [facility] [place] [address] Care Team Providers Name Role Phone Lovely Vicente MD Primary Care Provider Reason for Referral Consultation (Routine) - Closed Specialty Diagnoses / Referred By Contact Referred To Contact Procedures Cardiac Rehabilitation Diagnoses S/P CABG x 3 Yuan Webber, Cardiac Rehab, [address] [place] CARDIOTHORACIC [address] [place] [address] Referral ID Status Reason Start Date Expiration Date Visits V isits Requested Authorized [id number] Closed Consult, 07/14/2017 01/10/2018 36 36 Test & Treat Reason for Visit Auth/Cert Specialty Diagnoses / Procedures Referred By Contact Refer red To Contact Diagnoses STEMI (ST elevation myocardial infarction) NSTEMI STEMI Procedures CARDIAC CATHETERIZATION NAYE IPI Referral ID Status Reason Start Date Expiration Date Visits Requ ested Visits Authorized [id number] 1 1 Encounter Details Date Type Department Care Team Description 07/05/2017 - Hospital Encounter Cardiac Special Daphne Shahid MD [facility] [place] [address] Non-ST elevation myocardial infarction ( NSTEMI); 07/14/2017 Care Unit Yuan Preciado MD [facility] DR [place] [address] S/P CABG x 3 [place] [id number] Social History Tobacco Use Types Packs/Day Years [...] Patient Age: 72 y.o. Birthdate: 1945 Language: Cook Islander Race: White Ethnicity: Not nor Admit [...] , @ 1:20p Patient to follow-up with Reeling Machine Setup Operator/heart failure team in one week. An appointment will be made for you. You may call [phone] Patient to follow-up with Cardiac Surgery, Dr. Yuan Webber, in ~ 4 weeks with CXR, EKG. Inpatient Provider Contact Information: [facility] Section of Cardiac Surgery [facility] [place] [facility] [address] FAX [phone] Discharge Diagnoses (Hospital Problems) Primary Diagnoses: CAD [...] 33.75) performed by Yuan Webber MD at [facility] MAIN OR ??? PRO CABG, ARTERY-VEIN, TWO N/A 07/07/2017 @CABG, TWO VENOUS GRAFTS & ARTERIAL GRAFT (WRVU 7.93) performed by Yuan Webber MD at [facility] MAIN OR ??? PRO COLONOSCOPY, REMV LESN, SNARE 01/16/2014 COLONOSCOPY, POLYPECTOMY, REMOVAL LESION BY SNARE performed by Nohemi Jaimes MD at [facility] ENDOSCOPY ??? PRO ENDOSCOPY W/VIDEO-ASST VEIN HARVEST, CABG Right 07/07/2017 ENDOSCOPIC HARVEST VEIN(S) FOR CABG (WRVU 0.31) performed by Yuan Webber MD at [facility] MAIN OR ??? PRO THYROIDECTOMY 03/28/2013 THYROIDECTOMY, TOTAL OR COMPLETE performed by Manny Mcknight MD at [facility] MAIN OR Prior To Admission Medications Prescriptions Prior to Admission Medication Sig Dispense Refill Last Dose ??? levothyroxine (SYNTHROID) 175 mcg Tablet Take 1 tablet by mouth daily. 90 tablet 3 07/05/2017 [id number] ??? ascorbic acid, vitamin C, (VITAMIN C) [...] hospital and ruled infor non-ST segment elevation NE. This almost certainly represents the residual of [...] Hospital Course: Gregory [facility] via the Cardiology Service. During his hospital course, he was taken emergently to the engineering lab technician for an ongoing STEMI. An [...] not take or discontinue any prescription or pjvc-mfa-nklchzu medications without asking your doctor or pharmacist [...] day to have your insulin doses adjusted. [facility] Endocrine clinic office Discharge [...] Yuan Webber and/or the Cardiac Surgery Physician Substance Abuse Rn Team may be reached at . [...] Dr. Yuan Webber. You may use a [place] Track or treadmill but avoid any pulling [...] friends, go to a movie, go to spiritism, etc. Heavy activities: No hunting, skiing, jogging, snow shoveling, snowmobiling, lawn mowing, swimming, golf or tennis until after your return appointment with the surgeon. Do not ride motorcycles, Nu3's tractors or horses. Avoid the use of [...] should resume a low fat, low cholesterol, [place] Heart [employer] Diet/Diabetic diet. Driving: No driving [...] , @ 1:20p Patient to follow-up with Reeling Machine Setup Operator/heart failure team in one week. Appointment will be made for you. You may call [phone] Patient to follow-up with Cardiac Surgery, Dr. Yuan Webber, in ~ 4 weeks with CXR, EKG. Cardiac Rehabilitation: Gregory Hoang was seen today regarding participation in the outpatient Phase 2 Cardiac Rehabilitation at [facility]. The patient agrees to a referral to this program. The referral will be sent at discharge and the patient should be contacted by the Program within 1- 2 weeks from discharge. ?? Future Appointments and Orders Future Appointments Provider Department Dept Phone 09/07/2017 3:00 PM LAB, [facility] L Lab 3L [facility] [phone] 09/07/2017 4:00 PM Luz Prescott MD Endocrinology at [facility] [phone] Future Orders Complete By Expires EKG 12 Lead [EKG1 Custom] 08/14/2017 02/13/2018 Process Instructions: Scheduling Instructions: Questions: Which location will this be performed?: [facility] Is a rhythm strip needed?: No If EKG Reason is Pre-op Evaluation, indicate diagnosis for surgery.: XR Chest PA & Lateral (Generic) [[id number] Custom] 08/14/2017 02/13/2018 Process Instructions: Scheduling Instructions: Questions: Where will study be performed?: [facility] Portable exam?: Reason for exam and clinical history: CABG x 3 Other pertinent information: Stat read required?: Date of injury if applicable: Requested Time: Referral to Cardiac Rehab [ICC326 Custom] As directed Process Instructions: If no progress note charted, please enter Clinical details in comments. Scheduling Instructions: Questions: My question or request is: s/p CABG. Cardiac rehab at [facility] Referral to Home Health - at DISCHARGE [YCU1600 CPT(R)] As directed Process Instructions: Scheduling Instructions: Comments: DOCUMENTATION FOR VNA SERVICES (INCLUDING THOSE PATIENTS WITH MEDICARE COVERAGE REQUIRING HOME VNA SERVICES AND/OR HOSPICE SERVICES) PATIENT'S LOCATION: Gregory Hoang [address] [place] [address] [place] [id number] (home) Telephone Information: Reformatory Attendant's Name: self In discussion with the attending physician, it is certified that this patient is under their care and that they, or a Nurse Practitioner, or Physician Substance Abuse Rn who is working directly with them, [...] [facility] ([facility] [place] [facility]-[place] in [place] PHONE: [phone] FAX: [phone] RN orders: Cardiopulmonary assessment, incisional assessment, assess vital signs, assessment of rehab progress, medication management and effectiveness, home safety evaluation. Please draw INR if indicated and send result to:Dr Vicente [phone] PT ORDERS: Continue rehab for endurance, gait stability and strength with mobility and transfers. Home safety evaluation. Home exercise program if appropriate. Start of Care Date:24-48 hours after discharge SPECIAL INSTRUCTIONS: For any follow up questions, needs, or issues please call the Cardiac Surgery Office at [phone] FOR MEDICARE ONLY: (please delete this section [...] 07/17/2017 Signed: Martha Teague APRN [facility] Section of Cardiac Surgery [facility] [place] [address] FAX [phone] Date: 07/14/2017 CC: MD Ivania Cr Betsy, PA [address] [place] [phone] documented in this encounter Discharge Instructions Discharge [...] day to have your insulin doses adjusted. [facility] Endocrine clinic office Patient [...] not take or discontinue any prescription or wwsa-tgg-vqmpxuh medications without asking your doctor or pharmacist [...] juice or regular (not diet) soda 6 [employer] [place] [employer] small box of raisins 4 glucose tablets [...] day to have your insulin doses adjusted. [facility] Endocrine clinic office ? [...] Yuan Webber and/or the Cardiac Surgery Physician Substance Abuse Rn Team may be reached at . [...] Dr. Yuan Webber. You may use a [place] Track or treadmill but avoid any pulling [...] friends, go to a movie, go to spiritism, etc. ?? Heavy activities: No hunting, skiing, jogging, snow shoveling, snowmobiling, lawn mowing, swimming, golf or tennis until after your return appointment with the surgeon. Do not ride motorcycles, Nu3'[employer] Insider tractors or horses. Avoid the use of [...] should resume a low fat, low cholesterol, [place] Heart [employer] Diet/Diabetic diet. ?? Driving: No [...] @ 1:20p ?? Patient to follow-up with Reeling Machine Setup Operator/heart failure team in one week. An appointment has been made for you, you can call [phone] ?? Patient to follow-up with Cardiac Surgery, Dr. Yuan Webber, in ~ 4 weeks with CXR, EKG. ? Cardiac Rehabilitation: Gregory Hoang??was seen today regarding participation in the outpatient Phase 2 Cardiac Rehabilitation at [facility]. ?? The patient agrees to a referral to this program.? The referral will be sent at discharge and the patient should be contacted by the Program within 1- 2 weeks from discharge. ? Future Appointments and Orders Future Appointments Provider Department Dept Phone ?? 09/07/2017 3:00 PM LAB, THREE L Lab 3L [facility] [phone] ?? 09/07/2017 4:00 PM Luz Prescott MD Endocrinology at [facility] [phone] Future Orders Complete By Expires ?? EKG 12 Lead [EKG1 Custom] 08/14/2017 02/13/2018 ?? Process Instructions: ? Scheduling Instructions: ? Questions: ? Which location will this be performed?: [facility] ?? Is a rhythm strip needed?: No ?? If EKG Reason is Pre-op Evaluation, indicate diagnosis for surgery.: ?? XR Chest PA & Lateral (Generic) [[id number] Custom] 08/14/2017 02/13/2018 ?? Process Instructions: ? Scheduling Instructions: ? Questions: ? Where will study be performed?: [facility] ?? Portable exam?: ?? Reason for exam and clinical history: CABG x 3 ?? Other pertinent information: ?? Stat read required?: ?? Date of injury if applicable: ?? Requested Time: ?? Referral to Cardiac Rehab [HDT047 Custom] As directed ? Process Instructions: ?? If no progress note charted, please enter Clinical details in comments. ?? Scheduling Instructions: ? Questions: ? My question or request is: s/p CABG. Cardiac rehab at [facility] ? Arrangements for VNA/home care: As above. [...] RN - 07/14/2017 2:34 PM EST The patient/pharmacy services representative has been provided a list of Home Health Agencies/DME vendors which serve their preferred geographic area. A letter describing our affiliations was reviewed with them and theywere educated about their right to choose where referrals are placed. Patient requests referral to [facility] PHONE: [phone] FAX: [phone] Expected date of discharge: 07/14 Referral routed to the Kier Operator for matching with agency/vendor and to [...] day to have your insulin doses adjusted. [facility] Endocrine clinic office Kathie Carrera APRN [facility] Endocrinology Diabetes Management Pager [phone] 20 minutes of this 35 minute visit was spent with the patient in counseling on diabetes and treatment plan, reviewing all glucose and insulin data as well as relevant laboratory results with the patient, and coordination of care on the inpatient unit including nursing and primary team. Zulma Andres, RN - 07/14/2017 10:30 AM EST The patient/pharmacy services representative has been provided a list of Home Health Agencies/DME vendors which serve their preferred geographic area. A letter describing our affiliations was reviewed with them and theywere educated about their right to choose where referrals are placed. Patient requests referral to : Yasmani Munguia ([facility] [place] [facility]-is in [place]) PHONE: [phone] FAX: [phone]. Expected date of discharge: 07/14/17 Referral routed to the Kier Operator for matching with agency/vendor and to [...] hours. If BG remains greater than 240, clgved55 units (no more than three times) &??call [...] #6 s/p CABG X3. FSBG 80 at [place], reports no symptoms but did drink some [...] Will continue to follow Katerin Azul APRN [facility] Endocrinology Diabetes Management Pager [phone] minutes of this 25 minute visit [...] of infiltration/extravasation Discussed plan of care with ACCOUNT SERVICES COORDINATOR and RN. Elevate exrtemity and apply intermittent Warm compresses. Name of MD contacted Dr. Shaw Brown 07/13/2017 @ 0625 Name of RN contacted Ale Rangel RN Name of Pharmacist if consulted NA Name of Plastics MD ( if consulted) NA (Mandatory photo for infiltrations/ extravasations scoring a stage 2 or greater, but recommended forstage 1)( include measuring tape and identifier in the photo) EMERGENCY SERVICES PROFESSIONAL CARING FOR THIS PATIENT WILL CONTINUE TO [...] measuring tape and identifier in the photo) EMERGENCY SERVICES PROFESSIONAL CARING FOR THIS PATIENT WILL CONTINUE TO [...] regard to both infiltrates addressed by this lead technical writer.All of Mr. Hoang's responses were entirely appropriate. Images of infiltrates attached here. Martha Sharp APRN - 07/13/2017 8:01 AM EST Cardiac Surgery Progress Note: ID: [id number] 72 year old male POD#6 s/p CABGx3 [...] discharge. ?? I have met with the patient/pharmacy services representative to discuss discharge planning needs. I have provided the [facility], Office of Care Management letter from the Circle Beveler pertaining to rehab referrals. I have also provided a letter describing our affiliations within the [facility] and educated them about their right to choose where referrals are placed. ?? I reviewed the different levels of rehab including SNF, swing, acute and LTAC with the patient/pharmacy services representative. ?? The patient/pharmacy services representative has been provided a list of facilities within their preferred geographic area. ?? I have requested that the patient/pharmacy services representative provide at least three choices for referral. ?? The patient/pharmacy services representative have requested referrals to: ?? 1. . ?? 2. [facility] ?? 3. More to be entered ?? Expected date of discharge: 07/14 Note routed to Kier Operator who will communicate referrals to facilities [...] hours. If BG remains greater than 240, reoufe55 units (no more than three times) & [...] continue to follow Katerin Patel. STACIE Azul [facility] Endocrinology Diabetes Management Pager [phone] 20 minutes of this 35 minute visit was spent with the patient in counseling on diabetes and treatment plan, reviewing all glucose and insulin data as well as relevant laboratory results with the patient, and coordination of care on the inpatient unit including nursing and primary team. Makayla Stevenson APRN - 07/12/2017 9:52 AM EST Cardiac Surgery Progress Note: ID: [id number] 72 year old male POD#5 s/p CABGx3 [...] 07/11/2017 7:18 PM EST Patient arrived from [facility]. VSS. MSI dressing pulled off with fresh [...] hours. If BG remains greater than 240, samtul67 units (no more than three times) & [...] AM EST Cardiac Surgery Progress Note: ID: [id number] 72 year old male POD#4 s/p CABGx3 [...] AM EST Cardiac Surgery Progress Note: ID: [id number] 72 year old male POD#3 s/p CABGx3 [...] Gas) No results found for: PHART, PO2ART, UFK5GKR Assessment/Plan: 72 year old male POD#3 s/p [...] Encounter Note Patient Name: Gregory Hoang : [id number] MR#: [id number] Admit Date: 07/05/2017 4:20 PM Hospital Day 4 days Narrative: Patient was sitting in chair, hugging heart pillow, opened his eyes, nodding to come into room Assessment: Patient was sleepy. Intervention and Outcome: Introduced shellac polisher services and patient reached his hand out in appreciation. Follow-up: [employer] remains available for support. Time in Direct [...] 10:45 AM EST Report given to staff radiologist to cover care Maddison Cee PA - 07/09/2017 9:00 AM EST Cardiac Surgery Progress Note: ID: [id number] 72 year old male POD#2 s/p CABGx3 [...] Attending Surgeon on rounds. Signed: STEPHANIE [facility] Section of Cardiac Surgery Date: 07/09/2017 Magnolia Santiago [facility] - 07/09/2017 1:[address] [...] when IABP d/c'ed. Gretchen Carolina, PT Pager [phone] Maddison Cee PA - 07/08/2017 11:27 AM EST Cardiac Surgery Progress Note: ID: [id number] 72 year old male POD#1 s/p CABGx3 [...] Attending Surgeon on rounds. Signed: STEPHANIE [facility] Section of Cardiac Surgery Date: [...] unit. NICK SEGAL MD 07/08/2017 Jay Munoz [facility] - 07/08/2017 4:[address] [...] in place in R femoral. No hematoma. LUBE WORKER- Intact Psych- Anxious Skin- Dry, no [...] intact. IABP in place in R femoral. LUBE WORKER- Intact Psych- Anxious Skin- Dry, no [...] Ramírez MD, PGY-1 Cardiology S1 (pgr. [phone]) . CARDIOLOGY ATTENDING NOTE Patient: Gregory Hoang [...] note for details. DAPHNE SHAHID MD Pager [phone] Jet Mckenna MD - 07/05/2017 6:48 PM EST Preliminary Cardiac Catheterization Procedure Note: Procedure(s) performed: Left heart cath, IABP insertion Access: Right DEPARTMENT ADMINISTRATOR-->8fr IABP A time-out was conducted prior to [...] effect. Heparin gtt maintained. Pt transferred to engineering lab technician. documented in this encounter H&P Notes Daphne Shahid MD - 07/05/2017 6:08 PM EST CARDIOLOGY HISTORY & PHYSICAL EXAM Date of Admission: 07/05/2017 ( Hospital Day 0 days ) Responsible Attending: Daphne Shahid MD PCP: Lovely Vicente MD PCP#: [phone] Patient Active Problem List Diagnosis Code ??? [...] No significant valvular disease. Taken to the engineering lab technician urgently for ongoing STEMI. [facility] Labs: INR 1.0 WBC 5.88 Hgb 12.9 [...] monitor I/O - s/p lasix in the engineering lab technician, redose to aim net neg [...] - ISS - hold metformin - f/u [facility] #Home Meds - continue levothyroxine 175mcg - CPAP at night # Routine - DVT PPx: heparin drip - Diet: NPO - Code Status: FULL - Dispo: [facility] Cedric Bey MD Internal Medicine, PGY-2 Cardiology S1, Team Pager # [phone] CARDIOLOGY ATTENDING NOTE Patient: Gregory Hoang Date [...] amenable for PCI. DAPHNE SHAHID MD Pager [phone] documented in this encounter Miscellaneous Notes Consult Note - Daphne Shahid MD - 07/14/2017 11:46 AM EST Heart Failure Service Inpatient Consult Note Gregory Hoang Date of : 1945 Age: 72 y.o. Today's date: 07/14/17 PCP: Lovely Vicente MD SHRIMP BOAT CAPTAIN: None Place of Service: [facility] Reason for Consult: Dr. Webber has requested [...] 33.75) performed by Yuan Webber MD at [facility] MAIN OR ??? PRO CABG, ARTERY-VEIN, TWO N/A 07/07/2017 @CABG, TWO VENOUS GRAFTS & ARTERIAL GRAFT (WRVU 7.93) performed by Yuan Webber MD at [facility] MAIN OR ??? PRO COLONOSCOPY, REMV LESN, SNARE 01/16/2014 COLONOSCOPY, POLYPECTOMY, REMOVAL LESION BY SNARE performed by Nohemi Jaimes MD at [facility] ENDOSCOPY ??? PRO ENDOSCOPY W/VIDEO-ASST VEIN HARVEST, CABG Right 07/07/2017 ENDOSCOPIC HARVEST VEIN(S) FOR CABG (WRVU 0.31) performed by Yuan Webber MD at [facility] MAIN OR ??? PRO THYROIDECTOMY 03/28/2013 THYROIDECTOMY, TOTAL OR COMPLETE performed by Manny Mcknight MD at [facility] MAIN OR Outpt Meds: Current [...] following studies: EKG 07/14/17: NSR 75 bpm, OPTICAL GLASS WET INSPECTOR anterior infarct, LAD CXR 07/11/17: FINDINGS: Sternotomy wires. The patient has been extubated, left chest tube removed, and Volin-Suzi catheter removed since the 07/07/2017 study. Atelectasis [...] was discussed with Zehra. Jaden Kelley MD Wastewater Operator Pager [phone] CARDIOLOGY ATTENDING NOTE Patient: Gregory Hoang Date [...] heart failure clinic. DAPHNE SHAHID MD Pager [phone] Plan of Care - Alden Chavarria, HUMAN SERVICE TECHNICIAN - 07/14/2017 11:35 AM EST Problem: Patient [...] Discharge Disposition: home with assist Alden Chavarria, HUMAN SERVICE TECHNICIAN Pager: [phone] Inpatient Physical Therapy Problem: Acute Rehab Services [...] sit/sit to supine -- Bed Mobility Goal, Attala Level supervision required -- Bed Mobility Goal, [...] - 3 days -- Gait Training Goal, Attala Level supervision required -- Gait Training Goal, [...] days -- Transfer Training Goal, Activity Type rqt-pq-ncbrl/aebrd-jo-gam;zjh-bo-hnfiw/ythcj-to-scb;toilet -- Transfer Train Goal, Attala Level supervision required -- Transfer Training Goal, [...] keeping present for 2 days per family. It Network Administrator noted of frustrations, house keeping sent to room. Patient offered showered twice, refused. at bedside, frustrated that shower not complete, informed that patient had refused several times. requesting to see MANAGER OF CHANGE, paged sent to Martha, will come to bedside (middle of consult). not willing to wait, Martha notified that family had gone home. Encouraged to come for morning rounds a t 8am. Diabetes team at bedside - insulin adjustments made. Call cabello in reach. Continue to monitor. PLAN MOVING FORWARD: Ambulate, dressing changes BID, Please change drsg at 4am per Martha MANAGER OF CHANGE request. INDIVIDUALIZED FALL PREVENTION INTERVENTIONS: Patient-specific fall [...] levels on the lower side, 60ml of [place] juice given after a FS of 80. [...] 07/13/17 0502 Interdisciplinary Rounds/Family Conf Participants case fitter;dietitian/nutrition services;nursing;occupational therapy;patient;pharmacy;physical therapy;physician Plan of Care - [...] Anticipated Discharge Disposition: home with assist Pager: [phone] CLARISSA SEGAL, PT 07/12/2017 Physical Therapy Rehabilitation [...] to sit/sit to supine Bed Mobility Goal, Attala Level supervision required Bed Mobility Goal, Additional Goal adheres to psternal precautions for transfer Goal: Gait Training Goal Stand Alone Therapy Goal Outcome: Ongoing (Interventions Implemented as Appropriate) 07/12/17 1225 Gait Training Goal Gait Training Goal, Date Established 07/12/17 Gait Training Goal, Time to Achieve 2 - 3 days Gait Training Goal, Attala Level supervision required Gait Training Goal, Assist [...] 3 days Transfer Training Goal, Activity Type yfi-om-mqubt/rolmj-wm-mev;nra-jg-wzdvp/mvind-ru-fpi;toilet Transfer Train Goal, Attala Level supervision required Transfer Training Goal, Additional Goal adheres to sternal precautions during transfer Consult Note - Octavia Vaughn RN - 07/12/2017 10:50 AM EST [facility] CARDIAC REHABILITATION Gregory Hoang was seen today regarding participation in the outpatient Phase 2 Cardiac Rehabilitation at [facility]. The patient agrees to a referral to [...] IV site, amio to other piv and VENEER DEPARTMENT MANAGER at bedside to help assess, IV [...] Appropriate) 07/11/17199907/11/17200907/12/[address] [facility] Daily Care Interventions Self-Care Promotion -- [...] staff, he stood and marched in place. [place] weak, wanting to sit back down. Remained [...] Outcome: Ongoing (Interventions Implemented as Appropriate) 07/05/17 6104 Mutuality/Individual Preferences What Anxieties, Fears or Concerns [...] Health/Prescription Coverage: Primary Insurance: MEDICARE Secondary Insurance: [place] Prescription Coverage: yes Preferred Pharmacy: [facility] [place] Other: none Primary Care Provider: Lovely Vicente MD [phone] Patient/Caregiver Goals of Treatment:live and get my [...] assist with transition of care planning. ERLIN Wesis Pager: [phone] Consult Note - Katerin Azul RN - [...] patient W/E coverage, Dr. Jeane Tatum, pager [phone] Katerin Patel. STACIE Azul Endocrinology Diabetes Management Pager [phone] Plan of Care - Stephanie Godoy RN [...] Webber MD - 07/07/2017 6:27 PM EST [facility] Operative Note Patient Name: Gregory Hoang : [id number] MR#: [id number] Case Date: 07/07/2017 Surgeon: Surgeon(s) and Role: * Yuan Webber MD - Primary * Michael Drake PA - Physician Substance Abuse Rn * Linda Flores PA - Physician Substance Abuse Rn Preoperative diagnosis: 3VD Postoperative diagnosis: CAD, [...] Operative Note Patient Name: Gregory Hoang : [id number] MR#: [id number] Case Date: 07/07/2017 Surgeon: Surgeon(s) and Role: * Yuan Webber MD - Primary * Michael Drake PA - Physician Substance Abuse Rn * Linda Flores PA - Physician Substance Abuse Rn Preoperative diagnosis: 3VD Postoperative diagnosis: CAD, [...] major CV events such as , stroke, NE, repeat revascularization compared to PCI). In this [...] code status: Full Code Katty Jovani, MS3 [facility] Cardiology S1 (Pager [phone]) Plan of Care - Emelia Ibarra RN [...] hospital and ruled infor non-ST segment elevation NE. This almost certainly represents the residual of [...] [facility] ENDOSCOPY ??? PRO THYROIDECTOMY 03/28/2013 THYROIDECTOMY, TOTAL OR COMPLETE performed by Manny Mcknight MD at [facility] MAIN OR Social History: Social [...] with other involved physicians Yuan Webber MD [phone] Med Student Progress Note - Jovani Katty [...] ??? insulin lispro 2-8 Units Subcutaneous Q4H ULZ ??? aspirin 81 mg Oral Daily ??? [...] major CV events such as , stroke, NE, repeat revascularization compared to PCI). 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 Cardiology S1 (Pager [phone]) Plan of Care - Stephanie Godoy RN [...] in urinal without difficulty. Lasix given in engineering lab technician, 1.4 L out at this [...] MD [facility] [address] [place], [place] [address] (Wo rk) 05/28/2022 Appointment Cardiology Zulma Dolan MD [facility] [address] [place], [place] [address] (Wo rk) 05/28/2022 Laboratory Appointment Lab 05/28/2022 Office Visit Cardiology Zulma Dolan [place] [address] Liz Poole PA [facility] [place] [address] 06/10/2022 Office Visit Dermatology Laura Scherer MD [facility] DR TEJA GR-DERMAT [place], [place] [address] ( rk) Scheduled Orders Name [...] procedure are i n the results section. PASTE MAKER SCAN 07/15/2017 12:00 Res ults for this [...] Routine 07/07/2017 5:15 Results f or this ([facility]) AM EST procedure are [...] Routine 07/06/2017 7:40 Results f or this ([facility]) PM EST procedure are [...] Timed 07/06/2017 2:10 Results f or this ([facility]) PM EST procedure are [...] section. TYPE AND SCREEN Routine 07/06/2017 12:00 ([facility]/SHANDA) PM EST APTT STAT [...] Routine 07/06/2017 8:10 Results f or this ([facility]) AM EST procedure are [...] Routine 07/06/2017 2:20 Results f or this ([facility]) AM EST procedure are [...] Routine 07/05/2017 8:20 Results f or this ([facility]) PM EST procedure are [...] Timed 07/05/2017 4:55 Results f or this ([facility]) PM EST procedure are [...] EXAMINATION: XR CHEST PA AND LATERAL ([facility]) CLINICAL HISTORY: CABG x 3 TECHNIQUE: PA [...] Teague APRN IMG DX ORDERABLES SCAN DOC: PASTE MAKER (07/15/2017 12:00 AM EST) Narrative 07/15/2017 12:00 [...] Signature POC Glucose 186 65 - 199 [facility] mg/dL [facility] LABORATORY Comment: Supplemental ranges: <140 mg/dL before meals <180 mg/dL all other times of the day Specimen Anatomical Collection Method Collection Time Receive d Time (Source) Location / / Volume Laterality Blood specimen 07/14/2017 11:56 7 (specimen) AM EST 11:56 AM EST Yuan Webber MD POINT OF CARE TEST ORDERABLE S Performing Organization Address City/[facility] Code Phon e Number [address] POCT Glucose (07/14/2017 7:52 AM EST) athologist Signature POC Glucose 126 65 - 199 [facility] mg[facility]dL [facility] Comment: Supplemental ranges: <140 mg/dL before meals <180 mg/dL all other times of the day Specimen Anatomical Collection Method Collection Time Receive d Time (Source) Location / / Volume Laterality Blood specimen 07/14/2017 7:52 AM 017 7:52 (specimen) EST AM EST Yuan Webber MD POINT OF CARE TEST ORDERABLE S Performing Organization Address City/[facility] [place] [address] (ABNORMAL) Prothrombin Time (07/14/2017 [...] [place] STACIE HEMATOLOGY ORDERABLES Performing Organization Address City/[facility] Code Phon e Number [address] Potassium (07/14/2017 4:46 AM EST) athologist Signature Potassium 4.3 3.5 - 5.0 [facility] mmol/L [facility] LABOR[facility]ORY Comment: Please note: ??Patients [...] Resulting Agency Comment Spec In Lab Makayla Delta STACIE CHEMISTRY ORDERABLES Performing Organization Address City/[facility] Phon e Number [address] POCT Glucose (07/14/2017 4:34 AM EST) athologist Signature POC Glucose 115 65 - 199 [facility] mg/dL [facility]ORY Comment: Supplemental ranges: <140 mg/dL before meals <180 mg/dL all other times of the day Specimen Anatomical Collection Method Collection Time Receive d Time (Source) Location / / Volume Laterality Blood specimen 07/14/2017 4:34 AM 017 4:34 (specimen) EST AM EST Yuan Webber MD POINT OF CARE TEST ORDERABLE S Performing Organization Address City/State/ZIP [place] [address] POCT Glucose (07/13/2017 11:33 PM EST) athologist Signature POC Glucose 132 65 - 199 [place] mg/dL [facility] Comment: Supplemental ranges: <140 mg/dL before meals <180 mg/dL all other times of the day Specimen Anatomical Collection Method Collection Time Receive d Time (Source) Location / / Volume Laterality Blood specimen 07/13/2017 11:33 7 (specimen) PM EST 11:33 PM EST Yuan Webber MD POINT OF CARE TEST ORDERABLE S Performing Organization Address City/[facility]/ZIP [place] [address] POCT Glucose (07/13/2017 9:25 PM EST) athologist Signature POC Glucose 121 65 - 199 [place] mg/dL [facility]ORY Comment: Supplemental ranges: <140 mg/dL before meals <180 mg/dL all other times of the day Specimen Anatomical Collection Method Collection Time Receive d Time (Source) Location / / Volume Laterality Blood specimen 07/13/2017 9:25 PM 017 9:25 (specimen) EST PM EST Yuan Webber MD POINT OF CARE TEST ORDERABLE S Performing Organization Address City/State/ZIP [place] [address] POCT Glucose (07/13/2017 4:55 PM EST) athologist Signature POC Glucose 79 65 - 199 [facility] mg/dL [facility]ORY Comment: Supplemental ranges: <140 mg/dL before meals <180 mg/dL all other times of the day Specimen Anatomical Collection Method Collection Time Receive d Time (Source) Location / / Volume Laterality Blood specimen 07/13/2017 4:55 PM 017 4:55 (specimen) EST PM EST Yuan Webber MD POINT OF CARE TEST ORDERABLE S Performing Organization Address City/State/ZIP Code Phon e Number [address] POCT Glucose (07/13/2017 11:16 AM EST) athologist Signature POC Glucose 163 65 - 199 [facility] mg/dL [facility] Comment: Supplemental ranges: <140 mg/dL before meals <180 mg/dL all other times of the day Specimen Anatomical Collection Method Collection Time Receive d Time (Source) Location / / Volume Laterality Blood specimen 07/13/2017 11:16 7 (specimen) AM EST 11:16 AM EST Yuan Webber MD POINT OF CARE TEST ORDERABLE S Performing Organization Address City/[facility]/ZIP [place] [address] POCT Glucose (07/13/2017 8:07 AM EST) athologist Signature POC Glucose 96 65 - 199 [facility] Comment: Supplemental ranges: <140 mg/dL before meals <180 mg/dL all other times of the day Specimen Anatomical Collection Method Collection Time Receive d Time (Source) Location / / Volume Laterality Blood specimen 07/13/2017 8:07 AM 017 8:07 (specimen) EST AM EST Yuan Webber MD POINT OF CARE TEST ORDERABLE S Performing Organization Address City/State/ZIP [place] [address] (ABNORMAL) Prothrombin Time (07/13/2017 [...] Agency Comment Spec In Lab Makayla Wilson [employer] SERVICES ARCHITECT HEMATOLOGY ORDERABLES Performing Organization Address City/State/[place] [address] (ABNORMAL) Basic Metabolic Panel (non-fasting) (07/13/2017 4:26 AM EST) athologist Signature Glucose Lvl 95 65 - 199 [facility] mg/dL [facility]ORY Comment: Diabetes: >=200 mg/dL plus symp toms BUN 25 (H) 10 - 20 mg/dL [facility] Creatinine 1.19 0.80 - 1.50 mg/dL [facility] [...] [facility] LAB[facility] Estimated GFR 60 >=60 [facility] Comment: The reported eGFR should be multiplied b y 1.2 for patients. The MDRD is not an appropriate measure o f renal function for patients with body mass extremes or in patients with acute kidney failure. http://IntelligenceBank.com/DHnkdep http://IntelligenceBank.com/DHMCnkf Specimen Anatomical Collection Method Collection Time Receive d Time (Source) Location / / Volume Laterality Blood specimen 07/13/2017 4:26 AM 017 4:46 (specimen) EST AM EST Resulting Agency Comment Spec In Lab Makayla Katie QUINONES CHEMISTRY ORDERABLES Performing Organization Address City/State/ZIP [place] [address] POCT Glucose (07/13/2017 3:52 AM EST) athologist Signature POC Glucose 93 65 - 199 [place] mg/dL [facility] Comment: Supplemental ranges: <140 mg/dL before meals <180 mg/dL all other times of the day Specimen Anatomical Collection Method Collection Time Receive d Time (Source) Location / / Volume Laterality Blood specimen 07/13/2017 3:52 AM 017 3:52 (specimen) EST AM EST Yuan Webber MD POINT OF CARE TEST ORDERABLE S Performing Organization Address City/State/ZIP [place] [address] POCT Glucose (07/13/2017 12:21 AM EST) athologist Signature POC Glucose 80 65 - 199 [place] mg/dL [facility] Comment: Supplemental ranges: <140 mg/dL before meals <180 mg/dL all other times of the day Specimen Anatomical Collection Method Collection Time Receive d Time (Source) Location / / Volume Laterality Blood specimen 07/13/2017 12:21 7 (specimen) AM EST 12:21 AM EST Yuan Webber MD POINT OF CARE TEST ORDERABLE S Performing Organization Address City/State/ZIP Code Phon e Number [address] POCT Glucose (07/12/2017 8:22 PM EST) athologist Signature POC Glucose 119 65 - 199 [place] mg/dL [facility] Comment: Supplemental ranges: <140 mg/dL before meals <180 mg/dL all other times of the day Specimen Anatomical Collection Method Collection Time Receive d Time (Source) Location / / Volume Laterality Blood specimen 07/12/2017 8:22 PM 017 8:22 (specimen) EST PM EST Yuan Webber MD POINT OF CARE TEST ORDERABLE S Performing Organization Address City/State/ZIP Code Phon e Number [address] POCT Glucose (07/12/2017 4:02 PM EST) athologist Signature POC Glucose 114 65 - 199 [place] mg/dL [facility] Comment: Supplemental ranges: <140 mg/dL before meals <180 mg/dL all other times of the day Specimen Anatomical Collection Method Collection Time Receive d Time (Source) Location / / Volume Laterality Blood specimen 07/12/2017 4:02 PM 017 4:02 (specimen) EST PM EST Yuan Webber MD POINT OF CARE TEST ORDERABLE S Performing Organization Address City/State/ZIP Code Phon e Number [address] POCT Glucose (07/12/2017 11:28 AM EST) athologist Signature POC Glucose 164 65 - 199 [place] mg/dL [facility] Comment: Supplemental ranges: <140 mg/dL before meals <180 mg/dL all other times of the day Specimen Anatomical Collection Method Collection Time Receive d Time (Source) Location / / Volume Laterality Blood specimen 07/12/2017 11:28 7 (specimen) AM EST 11:28 AM EST Yuan Webber MD POINT OF CARE TEST ORDERABLE S Performing Organization Address City/State/ZIP Code Phon e Number [address] POCT Glucose (07/12/2017 7:34 AM EST) athologist Signature POC Glucose 109 65 - 199 [place] mg/dL [facility] Comment: Supplemental ranges: <140 mg/dL before meals <180 mg/dL all other times of the day Specimen Anatomical Collection Method Collection Time Receive d Time (Source) Location / / Volume Laterality Blood specimen 07/12/2017 7:34 AM 017 7:34 (specimen) EST AM EST Yuan Webber MD POINT OF CARE TEST ORDERABLE S Performing Organization Address City/State/[place] [address] (ABNORMAL) Basic Metabolic Panel (non-fasting) (07/12/2017 4:11 AM EST) athologist Signature Glucose Lvl 92 65 - 199 [facility] mg/dL [facility] Comment: Diabetes: >=200 mg/dL plus symp toms BUN 31 (H) 10 - 20 mg/dL [facility] Creatinine 1.23 0.80 - 1.50 mg/dL [facility] [...] Gap Not Calculated 5 - 15 mmol/L [facility] Calcium 8.1 (L) 8.5 - 10.5 mg/dL [facility] Estimated GFR 58 (L) >=60 [facility] Comment: The reported eGFR should be multiplied b y 1.2 for patients. The MDRD is not an appropriate measure o f renal function for patients with body mass extremes or in patients with acute kidney failure. http://NewHive/DHnkdep http://NewHive/DHMCnkf Specimen Anatomical Collection Method Collection Time Receive d Time (Source) Location / / Volume Laterality Blood specimen 07/12/2017 4:11 AM 017 8:57 (specimen) EST AM EST Resulting Agency Comment Spec In Lab Makayla Wilson APRN CHEMISTRY ORDERABLES Performing Organization Address [facility]/ZIP [place] [address] (ABNORMAL) Prothrombin Time (07/12/2017 [...] APRN HEMATOLOGY ORDERABLES Performing Organization Address [facility] [place] [address] Potassium (07/12/2017 4:11 AM EST) athologist Signature Potassium 3.8 3.5 - 5.0 [facility] mmol/L [facility] Comment: Please note: ??Patients [...] Organization Address City/State/ZIP Code Phon e Number [address] POCT Glucose (07/12/2017 4:10 AM EST) athologist Signature POC Glucose 90 65 - 199 [place] mg/dL [facility] Comment: Supplemental ranges: <140 mg/dL before meals <180 mg/dL all other times of the day Specimen Anatomical Collection Method Collection Time Receive d Time (Source) Location / / Volume Laterality Blood specimen 07/12/2017 4:10 AM 017 4:10 (specimen) EST AM EST Yuan Webber MD POINT OF CARE TEST ORDERABLE S Performing Organization Address City/[facility]/ZIP Code Phon e Number [address] POCT Glucose (07/11/2017 11:57 PM EST) athologist Signature POC Glucose 98 65 - 199 [place] mg/dL [facility] Comment: Supplemental ranges: <140 mg/dL before meals <180 mg/dL all other times of the day Specimen Anatomical Collection Method Collection Time Receive d Time (Source) Location / / Volume Laterality Blood specimen 07/11/2017 11:57 7 (specimen) PM EST 11:57 PM EST Yuan Webber MD POINT OF CARE TEST ORDERABLE S Performing Organization Address City/[facility]/ZIP [place] [address] POCT Glucose (07/11/2017 8:32 PM EST) athologist Signature POC Glucose 146 65 - 199 [place] mg/dL [facility] Comment: Supplemental ranges: <140 [...] Phon e Number [facility] [place] [address] XR Chest PA & [...] e xtubated, left chest tube removed, and Volin-Suzi catheter removed since the study. Atelectasis at [...] e xtubated, left chest tube removed, and Volin-Suzi catheter removed since the study. Atelectasis at [...] (H) 65 - 199 [place] mg/dL [facility] Comment: Supplemental ranges: <140 mg/dL before meals <180 mg/dL all other times of the day Specimen Anatomical Collection Method Collection Time Receive d Time (Source) Location / / Volume Laterality Blood specimen 07/11/2017 4:05 PM 017 4:05 (specimen) EST PM EST Yuan Webber MD POINT OF CARE TEST ORDERABLE S Performing Organization Address City/State/ZIP [place] [address] POCT Glucose (07/11/2017 11:55 AM EST) athologist Signature POC Glucose 176 65 - 199 [place] mg/dL [facility] Comment: Supplemental ranges: <140 mg/dL before meals <180 mg/dL all other times of the day Specimen Anatomical Collection Method Collection Time Receive d Time (Source) Location / / Volume Laterality Blood specimen 07/11/2017 11:55 7 (specimen) AM EST 11:55 AM EST Yuan Webber MD POINT OF CARE TEST ORDERABLE S Performing Organization Address City/State/ZIP [place] [address] POCT Glucose (07/11/2017 7:53 AM EST) athologist Signature POC Glucose 189 65 - 199 [place] mg/dL [facility] Comment: Supplemental ranges: <140 mg/dL before meals <180 mg/dL all other times of the day Specimen Anatomical Collection Method Collection Time Receive d Time (Source) Location / / Volume Laterality Blood specimen 07/11/2017 7:53 AM 017 7:53 (specimen) EST AM EST Yuan Webber MD POINT OF CARE TEST ORDERABLE S Performing Organization Address City/State/ZIP Code Phon e Number [address] POCT Glucose (07/11/2017 4:22 AM EST) athologist Signature POC Glucose 151 65 - 199 [place] mg/dL [facility] Comment: Supplemental ranges: <140 mg/dL before meals <180 mg/dL all other times of the day Specimen Anatomical Collection Method Collection Time Receive d Time (Source) Location / / Volume Laterality Blood specimen 07/11/2017 4:22 AM 017 4:22 (specimen) EST AM EST Yuan Webber MD POINT OF CARE TEST ORDERABLE S Performing Organization Address City/State/ZIP [place] [address] Potassium (07/11/2017 2:20 AM EST) athologist Signature Potassium 4.5 3.5 - 5.0 [facility] mmol/L [facility] Comment: Please note: ??Patients [...] Organization Address City/State/ZIP Code Phon e Number [address] POCT Glucose (07/11/2017 12:17 AM EST) athologist Signature POC Glucose 162 65 - 199 [facility] Comment: Supplemental ranges: <140 mg/dL before meals <180 mg/dL all other times of the day Specimen Anatomical Collection Method Collection Time Receive d Time (Source) Location / / Volume Laterality Blood specimen 07/11/2017 12:17 7 (specimen) AM EST 12:17 AM EST Yuan Webber MD POINT OF CARE TEST ORDERABLE S Performing Organization Address City/[facility]/ZIP Code Phon e Number [address] POCT Glucose (07/10/2017 8:47 PM EST) athologist Signature POC Glucose 191 65 - 199 [place] mg/dL [facility] Comment: Supplemental ranges: <140 mg/dL before meals <180 mg/dL all other times of the day Specimen Anatomical Collection Method Collection Time Receive d Time (Source) Location / / Volume Laterality Blood specimen 07/10/2017 8:47 PM 017 8:47 (specimen) EST PM EST Yuan Webber MD POINT OF CARE TEST ORDERABLE S Performing Organization Address City/State/ZIP Code Phon e Number [address] POCT Glucose (07/10/2017 4:06 PM EST) athologist Signature POC Glucose 131 65 - 199 [place] mg/dL [facility] Comment: Supplemental ranges: <140 mg/dL before meals <180 mg/dL all other times of the day Specimen Anatomical Collection Method Collection Time Receive d Time (Source) Location / / Volume Laterality Blood specimen 07/10/2017 4:06 PM 017 4:06 (specimen) EST PM EST Yuan Webber MD POINT OF CARE TEST ORDERABLE S Performing Organization Address City/State/ZIP Code Phon e Number [address] POCT Glucose (07/10/2017 3:08 PM EST) athologist Signature POC Glucose 151 65 - 199 [place] mg/dL [facility] Comment: Supplemental ranges: <140 mg/dL before meals <180 mg/dL all other times of the day Specimen Anatomical Collection Method Collection Time Receive d Time (Source) Location / / Volume Laterality Blood specimen 07/10/2017 3:08 PM 017 3:08 (specimen) EST PM EST Yuan Webber MD POINT OF CARE TEST ORDERABLE S Performing Organization Address City/State/ZIP Code Phon e Number [address] POCT Glucose (07/10/2017 2:25 PM EST) athologist Signature POC Glucose 146 65 - 199 [place] mg/dL [facility] Comment: Supplemental ranges: <140 mg/dL before meals <180 mg/dL all other times of the day Specimen Anatomical Collection Method Collection Time Receive d Time (Source) Location / / Volume Laterality Blood specimen 07/10/2017 2:25 PM 017 2:25 (specimen) EST PM EST Yuan Webber MD POINT OF CARE TEST ORDERABLE S Performing Organization Address City/State/ZIP [place] [address] POCT Glucose (07/10/2017 1:23 PM EST) athologist Signature POC Glucose 166 65 - 199 [place] mg/dL [facility] Comment: Supplemental ranges: <140 mg/dL before meals <180 mg/dL all other times of the day Specimen Anatomical Collection Method Collection Time Receive d Time (Source) Location / / Volume Laterality Blood specimen 07/10/2017 1:23 PM 017 1:23 (specimen) EST PM EST Yuan Webber MD POINT OF CARE TEST ORDERABLE S Performing Organization Address City/State/ZIP [place] [address] POCT Glucose (07/10/2017 11:52 AM EST) athologist Signature POC Glucose 157 65 - 199 [place] mg/dL [facility] Comment: Supplemental ranges: <140 mg/dL before meals <180 mg/dL all other times of the day Specimen Anatomical Collection Method Collection Time Receive d Time (Source) Location / / Volume Laterality Blood specimen 07/10/2017 11:52 7 (specimen) AM EST 11:52 AM EST Yuan Webber MD POINT OF CARE TEST ORDERABLE S Performing Organization Address City/State/ZIP Code Phon e Number [address] POCT Glucose (07/10/2017 11:01 AM EST) athologist Signature POC Glucose 158 65 - 199 [place] mg/dL [facility] Comment: Supplemental ranges: <140 mg/dL before meals <180 mg/dL all other times of the day Specimen Anatomical Collection Method Collection Time Receive d Time (Source) Location / / Volume Laterality Blood specimen 07/10/2017 11:01 7 (specimen) AM EST 11:01 AM EST Yuan Webber MD POINT OF CARE TEST ORDERABLE S Performing Organization Address City/State/ZIP Code Phon e Number [address] POCT Glucose (07/10/2017 9:54 AM EST) athologist Signature POC Glucose 160 65 - 199 [place] mg/dL [facility] LABORATORY Comment: Supplemental ranges: <140 mg/dL before meals <180 mg/dL all other times of the day Specimen Anatomical Collection Method Collection Time Receive d Time (Source) Location / / Volume Laterality Blood specimen 07/10/2017 9:54 AM 017 9:54 (specimen) EST AM EST Yuan Webber MD POINT OF CARE TEST ORDERABLE S Performing Organization Address City/State/ZIP Code Phon e Number [address] POCT Glucose (07/10/2017 8:58 AM EST) athologist Signature POC Glucose 183 65 - 199 [place] mg/dL [facility] LABORATORY Comment: Supplemental ranges: <140 mg/dL before meals <180 mg/dL all other times of the day Specimen Anatomical Collection Method Collection Time Receive d Time (Source) Location / / Volume Laterality Blood specimen 07/10/2017 8:58 AM 017 8:58 (specimen) EST AM EST Yuan Webber MD POINT OF CARE TEST ORDERABLE S Performing Organization Address City/State/ZIP [place] [address] POCT Glucose (07/10/2017 8:01 AM EST) athologist Signature POC Glucose 173 65 - 199 [place] mg/dL [facility] LABORATORY Comment: Supplemental ranges: <140 mg/dL before meals <180 mg/dL all other times of the day Specimen Anatomical Collection Method Collection Time Receive d Time (Source) Location / / Volume Laterality Blood specimen 07/10/2017 8:01 AM 017 8:01 (specimen) EST AM EST Yuan Webber MD POINT OF CARE TEST ORDERABLE S Performing Organization Address City/[facility]/ZIP Code Phon e Number [address] POCT Glucose (07/10/2017 7:05 AM EST) P athologist Signature POC Glucose 166 65 - 199 [facility] LABORATORY Comment: Supplemental ranges: <140 mg/dL before meals <180 mg/dL all other times of the day Specimen Anatomical Collection Method Collection Time Receive d Time (Source) Location / / Volume Laterality Blood specimen 07/10/2017 7:05 AM 017 7:05 (specimen) EST AM EST Yuan Webber MD POINT OF CARE TEST ORDERABLE S Performing Organization Address City/[facility]/ZIP Code Phon e Number [address] POCT Glucose (07/10/2017 6:00 AM EST) P athologist Signature POC Glucose 162 65 - 199 [facility]dL [facility] LABORATORY Comment: Supplemental ranges: <140 mg/dL before meals <180 mg/dL all other times of the day Specimen Anatomical Collection Method Collection Time Receive d Time (Source) Location / / Volume Laterality Blood specimen 07/10/2017 6:00 AM 017 6:00 (specimen) EST AM EST Yuan Webber MD POINT OF CARE TEST ORDERABLE S Performing Organization Address City/State/ZIP Code Phon e Number [address] (ABNORMAL) Differential, Automated (07/10/2017 4:28 AM EST) [facility] gist Method Time Signature Neutrophils % 87.9 % [facility] LABORATORY Neutr Abs (ANC) 10.70 (H) 1.70 - [facility] 6.10 [facility] x10(3)/[facility] L LABORATORY Lymphocytes % 3.9 % [facility] LABORATORY Lymphocytes Abs 0.5 (L) 0.9 - 3.2 [facility] x10(3)/[facility] LABORATORY Monocytes % 7.0 % [facility] LABORATORY Monocyte Abs 0.8 0.3 - 0.9 [facility] x10(3)/[facility] LABORATORY Eosinophils % 0.3 % [facility] LABORATORY Eosinophils Abs 0.0 0.0 - 0.4 [facility] x10(3)/[facility] LABORATORY Basophils % 0.2 % [facility] LABORATORY Basophils Abs 0.0 0.0 - 0.1 [facility] x10(3)/[facility] LABORATORY Immature Gran % 0.70 [...] Organization Address City/State/[place] [address] (ABNORMAL) Hemogram (07/10/2017 4:28 AM EST) Analysis Performed At Patho logist Time Signature WBC 12.2 (H) 4.0 - 9.5 [facility] x10(3)/[facility] LABORATORY RBC 3.31 (L) 4.58 - [facility] 5.54 [facility] x10(6)/[facility] LABORATORY Hemoglobin 9.8 (L) 13.7 - [facility] 16.5 gm/dL [facility] LABORATORY Hematocrit 30.0 (L) 40.5 - [place] 48.5 % [facility] LABORATORY MCV 90.6 82.9 - [place] 93.1 [facility] LABORATORY MCH 29.6 27.5 - [place] 32.1 pg [facility] LABORATORY MCHC 32.7 32.0 - [place] 35.7 gm/dL [facility] LABORATORY Platelets 135 (L) 145 - 357 [facility] x10(3)/[facility] LABORATORY RDWSD 50.8 (H) 36.0 - [place] 45.0 [facility] LABORATORY RDWCV 15.4 (H) 11.4 - [place] 13.8 % [facility] LABORATORY MPV 10.0 7.6 - 12.9 [facility] LABORATORY nRBC % Auto 0.0 % [facility] LABORATORY nRBC Abs Auto 0.000 0.000 - [place] 0.000 [facility] x10(3)/[facility] LABORATORY Specimen Anatomical Collection Method Collection Time Receive d Time (Source) Location / / Volume Laterality Blood specimen 07/10/2017 4:28 AM 017 4:36 (specimen) EST AM EST Resulting Agency Comment Spec In Lab Yuan Webber MD HEMATOLOGY ORDERABLES Performing Organization Address City/State/[place] [address] (ABNORMAL) Basic Metabolic Panel (non-fasting) (07/10/2017 4:28 AM EST) P athologist Signature Glucose Lvl 178 65 - 199 [facility] mg/dL [facility] LABORATORY Comment: Diabetes: >=200 mg/dL plus symp toms BUN 20 10 - 20 mg/dL [facility] LABORATORY Creatinine 1.19 0.80 - 1.50 mg/dL [facility] LABORATORY Estimated GFR 60 >=60 [facility] LABORATORY Comment: The reported eGFR should be multiplied b y 1.2 for patients. The MDRD is not an appropriate measure o f renal function for patients with body mass extremes or in patients with acute kidney failure. http://NewHive/DHnkdep http://NewHive/DHMCnkf Specimen Anatomical Collection Method Collection Time Receive d Time (Source) Location / / Volume Laterality Blood specimen 07/10/2017 4:28 AM 017 4:36 (specimen) EST AM EST Resulting Agency Comment Spec In Lab Yuan Webber MD CHEMISTRY ORDERABLES Performing Organization Address City/[facility]/ZIP Code Phon e Number [address] POCT Glucose (07/10/2017 4:26 AM EST) athologist Signature POC Glucose 176 65 - 199 [facility]dL [facility] LABORATORY Comment: Supplemental ranges: <140 mg/dL before meals <180 mg/dL all other times of the day Specimen Anatomical Collection Method Collection Time Receive d Time (Source) Location / / Volume Laterality Blood specimen 07/10/2017 4:26 AM 017 4:26 (specimen) EST AM EST Yuan Webber MD POINT OF CARE TEST ORDERABLE S Performing Organization Address City/[facility]/ZIP [place] [address] (ABNORMAL) POCT Glucose (07/10/2017 3:06 AM EST) athologist Signature POC Glucose 204 (H) 65 - 199 [facility] LAB[facility]ORY Comment: Supplemental ranges: <140 mg/dL before meals <180 mg/dL all other times of the day Specimen Anatomical Collection Method Collection Time Receive d Time (Source) Location / / Volume Laterality Blood specimen 07/10/2017 3:06 AM 017 3:06 (specimen) EST AM EST Yuan Webber MD POINT OF CARE TEST ORDERABLE S Performing Organization Address City/State/ZIP [place] [address] (ABNORMAL) POCT Glucose (07/10/2017 2:10 AM EST) P athologist Signature POC Glucose 203 (H) 65 - 199 [place] mg/dL [facility] LABORATORY Comment: Supplemental ranges: <140 mg/dL before meals <180 mg/dL all other times of the day Specimen Anatomical Collection Method Collection Time Receive d Time (Source) Location / / Volume Laterality Blood specimen 07/10/2017 2:10 AM 017 2:10 (specimen) EST AM EST Yuan Webber MD POINT OF CARE TEST ORDERABLE S Performing Organization Address City/State/ZIP [place] [address] POCT Glucose (07/10/2017 1:09 AM EST) P athologist Signature POC Glucose 196 65 - 199 [place] mg/dL [facility] LABORATORY Comment: Supplemental ranges: <140 mg/dL before meals <180 mg/dL all other times of the day Specimen Anatomical Collection Method Collection Time Receive d Time (Source) Location / / Volume Laterality Blood specimen 07/10/2017 1:09 AM 017 1:09 (specimen) EST AM EST Yuan Webber MD POINT OF CARE TEST ORDERABLE S Performing Organization Address City/State/ZIP [place] [address] POCT Glucose (07/10/2017 12:10 AM EST) P athologist Signature POC Glucose 173 65 - 199 [place] mg/dL [facility] LABORATORY Comment: Supplemental ranges: <140 mg/dL before meals <180 mg/dL all other times of the day Specimen Anatomical Collection Method Collection Time Receive d Time (Source) Location / / Volume Laterality Blood specimen 07/10/2017 12:10 7 (specimen) AM EST 12:10 AM EST Yuan Webber MD POINT OF CARE TEST ORDERABLE S Performing Organization Address City/State/ZIP [place] [address] POCT Glucose (07/09/2017 11:01 PM EST) P athologist Signature POC Glucose 140 65 - 199 [place] mg/dL [facility] LABORATORY Comment: Supplemental ranges: <140 mg/dL before meals <180 mg/dL all other times of the day Specimen Anatomical Collection Method Collection Time Receive d Time (Source) Location / / Volume Laterality Blood specimen 07/09/2017 11:01 7 (specimen) PM EST 11:01 PM EST Yuan Webber MD POINT OF CARE TEST ORDERABLE S Performing Organization Address City/State/ZIP [place] [address] POCT Glucose (07/09/2017 10:05 PM EST) athologist Signature POC Glucose 144 65 - 199 [place] mg/dL [facility] LABORATORY Comment: Supplemental ranges: <140 mg/dL before meals <180 mg/dL all other times of the day Specimen Anatomical Collection Method Collection Time Receive d Time (Source) Location / / Volume Laterality Blood specimen 07/09/2017 10:05 7 (specimen) PM EST 10:05 PM EST Yuan Webber MD POINT OF CARE TEST ORDERABLE S Performing Organization Address City/State/ZIP Code Phon e Number [address] POCT Glucose (07/09/2017 9:31 PM EST) athologist Signature POC Glucose 121 65 - 199 [facility] SU mg/dL [facility] LABORATORY Comment: Supplemental ranges: <140 mg/dL before meals <180 mg/dL all other times of the day Specimen Anatomical Collection Method Collection Time Receive d Time (Source) Location / / Volume Laterality Blood specimen 07/09/2017 9:31 PM 017 9:31 (specimen) EST PM EST Yuan Webber MD POINT OF CARE TEST ORDERABLE S Performing Organization Address City/State/ZIP Code Phon e Number [address] POCT Glucose (07/09/2017 9:03 PM EST) athologist Signature POC Glucose 98 65 - 199 [place] mg/dL [facility] LABORATORY Comment: Supplemental ranges: <140 mg/dL before meals <180 mg/dL all other times of the day Specimen Anatomical Collection Method Collection Time Receive d Time (Source) Location / / Volume Laterality Blood specimen 07/09/2017 9:03 PM 017 9:03 (specimen) EST PM EST Yuan Webber MD POINT OF CARE TEST ORDERABLE S Performing Organization Address City/State/ZIP Code Phon e Number [address] POCT Glucose (07/09/2017 8:09 PM EST) athologist Signature POC Glucose 117 65 - 199 [place] mg/dL [facility] LABORATORY Comment: Supplemental ranges: <140 mg/dL before meals <180 mg/dL all other times of the day Specimen Anatomical Collection Method Collection Time Receive d Time (Source) Location / / Volume Laterality Blood specimen 07/09/2017 8:09 PM 017 8:09 (specimen) EST PM EST Yuan Webber MD POINT OF CARE TEST ORDERABLE S Performing Organization Address City/State/ZIP [place] [address] POCT Glucose (07/09/2017 5:40 PM EST) athologist Signature POC Glucose 155 65 - 199 [place] mg/dL [facility] LABORATORY Comment: Supplemental ranges: <140 mg/dL before meals <180 mg/dL all other times of the day Specimen Anatomical Collection Method Collection Time Receive d Time (Source) Location / / Volume Laterality Blood specimen 07/09/2017 5:40 PM 017 5:40 (specimen) EST PM EST Yuan Webber MD POINT OF CARE TEST ORDERABLE S Performing Organization Address City/[facility]/ZIP Code Phon e Number [address] POCT Glucose (07/09/2017 4:24 PM EST) athologist Signature POC Glucose 164 65 - 199 [place] mg/dL [facility] LABORATORY Comment: Supplemental ranges: <140 mg/dL before meals <180 mg/dL all other times of the day Specimen Anatomical Collection Method Collection Time Receive d Time (Source) Location / / Volume Laterality Blood specimen 07/09/2017 4:24 PM 017 4:24 (specimen) EST PM EST Yuan Webber MD POINT OF CARE TEST ORDERABLE S Performing Organization Address City/[facility]/ZIP Code Phon e Number [address] POCT Glucose (07/09/2017 3:19 PM EST) athologist Signature POC Glucose 166 65 - 199 [place] mg/dL [facility] LABORATORY Comment: Supplemental ranges: <140 mg/dL before meals <180 mg/dL all other times of the day Specimen Anatomical Collection Method Collection Time Receive d Time (Source) Location / / Volume Laterality Blood specimen 07/09/2017 3:19 PM 017 3:19 (specimen) EST PM EST Yuan Webber MD POINT OF CARE TEST ORDERABLE S Performing Organization Address City/State/ZIP Code Phon e Number [address] POCT Glucose (07/09/2017 2:26 PM EST) athologist Signature POC Glucose 179 65 - 199 [place] mg/dL [facility] LABORATORY Comment: Supplemental ranges: <140 mg/dL before meals <180 mg/dL all other times of the day Specimen Anatomical Collection Method Collection Time Receive d Time (Source) Location / / Volume Laterality Blood specimen 07/09/2017 2:26 PM 017 2:26 (specimen) EST PM EST Yuan Webber MD POINT OF CARE TEST ORDERABLE S Performing Organization Address City/[facility]/ZIP Code Phon e Number [address] (ABNORMAL) POCT Glucose (07/09/2017 1:29 PM EST) P athologist Signature POC Glucose 210 (H) 65 - 199 [place] mg/dL [facility] LABORATORY Comment: Supplemental ranges: <140 mg/dL before meals <180 mg/dL all other times of the day Specimen Anatomical Collection Method Collection Time Receive d Time (Source) Location / / Volume Laterality Blood specimen 07/09/2017 1:29 PM 017 1:29 (specimen) EST PM EST Yuan Webber MD POINT OF CARE TEST ORDERABLE S Performing Organization Address City/[facility]/ZIP [place] [address] POCT Glucose (07/09/2017 12:20 PM EST) P athologist Signature POC Glucose 172 65 - 199 [place] mg/dL [facility] LABORATORY Comment: Supplemental ranges: <140 mg/dL before meals <180 mg/dL all other times of the day Specimen Anatomical Collection Method Collection Time Receive d Time (Source) Location / / Volume Laterality Blood specimen 07/09/2017 12:20 7 (specimen) PM EST 12:20 PM EST Yuan Webber MD POINT OF CARE TEST ORDERABLE S Performing Organization Address City/State/ZIP [place] [address] POCT Glucose (07/09/2017 11:24 AM EST) P athologist Signature POC Glucose 156 65 - 199 [facility] SU mg/dL [facility] LABORATORY Comment: Supplemental ranges: <140 mg/dL before meals <180 mg/dL all other times of the day Specimen Anatomical Collection Method Collection Time Receive d Time (Source) Location / / Volume Laterality Blood specimen 07/09/2017 11:24 7 (specimen) AM EST 11:24 AM EST Yuan Webber MD POINT OF CARE TEST ORDERABLE S Performing Organization Address City/State/ZIP Code Phon e Number [address] POCT Glucose (07/09/2017 11:11 AM EST) P athologist Signature POC Glucose 172 65 - 199 [place] mg/dL [facility] LABORATORY Comment: Supplemental ranges: <140 mg/dL before meals <180 mg/dL all other times of the day Specimen Anatomical Collection Method Collection Time Receive d Time (Source) Location / / Volume Laterality Blood specimen 07/09/2017 11:11 7 (specimen) AM EST 11:11 AM EST Yuan Webber MD POINT OF CARE TEST ORDERABLE S Performing Organization Address City/[facility]/ZIP Code Phon e Number [address] POCT Glucose (07/09/2017 10:08 AM EST) P athologist Signature POC Glucose 176 65 - 199 [place] mg/dL [facility] LABORATORY Comment: Supplemental ranges: <140 mg/dL before meals <180 mg/dL all other times of the day Specimen Anatomical Collection Method Collection Time Receive d Time (Source) Location / / Volume Laterality Blood specimen 07/09/2017 10:08 7 (specimen) AM EST 10:08 AM EST Yuan Webber MD POINT OF CARE TEST ORDERABLE S Performing Organization Address City/State/ZIP Code Phon e Number [address] POCT Glucose (07/09/2017 8:02 AM EST) P athologist Signature POC Glucose 178 65 - 199 [place] mg/dL [facility] LABORATORY Comment: Supplemental ranges: <140 mg/dL before meals <180 mg/dL all other times of the day Specimen Anatomical Collection Method Collection Time Receive d Time (Source) Location / / Volume Laterality Blood specimen 07/09/2017 8:02 AM 017 8:02 (specimen) EST AM EST Yuan Webber MD POINT OF CARE TEST ORDERABLE S Performing Organization Address City/State/[place] [address] (ABNORMAL) BLOOD GAS 2 ARTERIAL (07/09/2017 5:37 AM EST) Analysis Performed At Patho logist Time Signature pH Art 7.36 7.35 - [facility] 7.45 [facility] LABORATORY pCO2 Art 38 35 - 45 [facility] mmHg [facility] LABORATORY pO2 Art 79 (L) 85 - 104 [facility] LABORATORY HCO3 Art 20.9 20.0 - [facility] 26.0 [facility] mmol/L [facility] LABORATORY BE Art -4.6 (L) -3.0 - 3.0 [facility] mmol/L [facility] LABORATORY Hgb Blood Gas 10.5 (L) 13.7 - [facility] 16.5 gm/dL [facility] O2HB Art 93.8 (L) 94.0 - [facility] 97.0 % [facility] LABORATORY COHB Art 0.3 % [facility] [...] Lactate WB 1.0 0.5 - 2.2 mmol/L [facility] LABORATORY FIO2 Art 40 % [facility] LABORATORY PF Ratio Art 198 [facility] LABORATORY Specimen Anatomical Collection Method Collection Time Receive d Time (Source) Location / / Volume Laterality Blood specimen 07/09/2017 5:37 AM 017 5:37 (specimen) EST AM EST Yuan Webber MD CHEMISTRY ORDERABLES Performing Organization Address City/[facility]/ZIP Code Phon e Number [address] POCT Glucose (07/09/2017 3:27 AM EST) athologist Signature POC Glucose 192 65 - 199 [facility] LABORATORY Comment: Supplemental ranges: <140 mg/dL before meals <180 mg/dL all other times of the day Specimen Anatomical Collection Method Collection Time Receive d Time (Source) Location / / Volume Laterality Blood specimen 07/09/2017 3:27 AM 017 3:27 (specimen) EST AM EST Yaun Webber MD POINT OF CARE TEST ORDERABLE S Performing Organization Address City/[facility]/ZIP Code Phon e Number [address] (ABNORMAL) Basic Metabolic Panel (non-fasting) (07/09/2017 2:30 AM EST) athologist Signature Glucose Lvl 179 65 - 199 [facility]dL [facility] LABORATORY Comment: Diabetes: >=200 mg/dL plus symp toms BUN 17 10 - 20 mg/dL [facility] LABORATORY Creatinine 1.34 0.80 - 1.50 mg/dL [facility] [...] or in patients with acute kidney failure. http://NewHive/DHnkdep http://NewHive/DHMCnkf Specimen Anatomical Collection Method Collection Time Receive d Time (Source) Location / / Volume Laterality Blood specimen Venous Draw / 07/09/2017 2:30 AM 2016 2:42 (specimen) Unknown EST AM EST Resulting Agency Comment Spec In Lab Yuan Webber MD CHEMISTRY ORDERABLES Performing Organization Address City/State/[place] [address] (ABNORMAL) Potassium (07/09/2017 2:30 AM EST) P athologist Signature Potassium 5.1 (H) 3.5 - 5.0 [facility] mmol/L [facility] LABORATORY Comment: Please note: ??Patients [...] Number [facility] [place] [address] (ABNORMAL) Hemogram (07/09/2017 2:30 AM EST) Analysis Performed At Patho logist Time Signature WBC 12.5 (H) 4.0 - 9.5 [place] x10(3)/[facility] LABORATORY RBC 3.38 (L) 4.58 - [place] 5.54 [facility] x10(6)/[facility] LABORATORY Hemoglobin 10.1 (L) 13.7 - [facility] 16.5 gm/dL [facility] LABORATORY Hematocrit 30.3 (L) 40.5 - [facility] 48.5 % [facility] LABORATORY MCV 89.6 82.9 - [facility] 93.1 [facility] LABORATORY MCH 29.9 27.5 - [facility] 32.1 pg [facility] LABORATORY MCHC 33.3 32.0 - [place] 35.7 gm/dL [facility] LABORATORY Platelets 127 (L) 145 - 357 [facility] x10(3)/[facility] LABORATORY RDWSD 49.3 (H) 36.0 - [facility] 45.0 [facility] LABORATORY RDWCV 15.2 (H) 11.4 - [facility] 13.8 % [facility] LABORATORY MPV 9.9 7.6 - 12.9 [facility] LABORATORY nRBC % Auto 0.0 % [facility] LABORATORY nRBC Abs Auto 0.000 0.000 - [facility] 0.000 [facility] x10(3)/[facility] LABORATORY Specimen Anatomical Collection Method Collection Time Receive d Time (Source) Location / / Volume Laterality Blood specimen 07/09/2017 2:30 AM 017 2:41 (specimen) EST AM EST Resulting Agency Comment Spec In Lab Yuan Webber MD HEMATOLOGY ORDERABLES Performing Organization Address City/State/[place] [address] [facility] [address] POCT Glucose (07/09/2017 2:10 AM EST) P athologist Signature POC Glucose 169 65 - 199 [facility] mg/dL [facility] LABORATORY Comment: Supplemental ranges: <140 mg/dL before meals <180 mg/dL all other times of the day Specimen Anatomical Collection Method Collection Time Receive d Time (Source) Location / / Volume Laterality Blood specimen 07/09/2017 2:10 AM 017 2:10 (specimen) EST AM EST Yuan Webber MD POINT OF CARE TEST ORDERABLE S Performing Organization Address City/[facility]/ZIP [place] [address] POCT Glucose (07/09/2017 1:01 AM EST) P athologist Signature POC Glucose 173 65 - 199 [facility] Comment: Supplemental ranges: <140 mg/dL before meals <180 mg/dL all other times of the day Specimen Anatomical Collection Method Collection Time Receive d Time (Source) Location / / Volume Laterality Blood specimen 07/09/2017 1:01 AM 017 1:01 (specimen) EST AM EST Yuan Webber MD POINT OF CARE TEST ORDERABLE S Performing Organization Address City/State/Z[place] [address] Blood culture (07/09/2017 12:40 AM EST) Patholo gist Method Time Signature Blood Culture No growth KATALINA DAVIS at 5 days. [facility] Specimen Anatomical Collection Method Collection Time Receive d Time (Source) Location / / Volume Laterality Blood specimen STRUCTURE OF RIGHT 07/09/2017 12:40 3:58 (specimen) UPPER LIMB / AM EST AM EST Unknown Resulting Agency Comment Spec In Lab Yuan Webber MD MICROBIOLOGY - BLOOD ORDERAB LES Performing Organization Address City/State/ZIP [place] [address] Blood culture (07/09/2017 12:30 AM EST) Patholo gist Method Time Signature Blood Culture No growth KATALINA DAVIS at 5 days. [facility] Specimen Anatomical Collection Method Collection Time Receive d Time (Source) Location / / Volume Laterality Blood specimen STRUCTURE OF LEFT 07/09/2017 12:30 06/25 3:59 (specimen) UPPER LIMB / AM EST AM EST Unknown Resulting Agency Comment Spec In Lab Yuan Webber MD MICROBIOLOGY - BLOOD ORDERAB LES Performing Organization Address City/[facility]/ZIP [place] [address] (ABNORMAL) Urinalysis Microscopic Exam (07/09/2017 12:05 AM EST) Analysis Performed At Patho logist Time Signature RBC UA 32 (H) 0 - 3 /HPF [facility] WBC UA 5 (H) 0 - 3 /HPF [facility] Squam Epith UA <1 <=4 /HPF [facility] Hyaline Cast 17 (H) 0 - 2 /LPF [facility] Gran Cast UA 1 (H) <=0 /LPF [facility] Uric Ac Bianca Rare (A) None /HPF [facility] Specimen (Source) Anatomical Collection Method Collection Time Re ceived Time Location / / Volume Laterality Urine specimen 07/09/2017 12:05 7 obtained via AM EST 12:39 AM EST indwelling urinary catheter (specimen) Resulting Agency Comment Spec In Lab Yuan Webber MD URINE ORDERABLES Performing Organization Address City/[facility]/ZIP [place] [address] (ABNORMAL) Urinalysis with reflex Culture (07/09/2017 12:05 AM EST) Patholo gist Method Time Signature Glucose UA Negative Negative [facility] Protein UA 30 (A) Negative [facility] mg/dL [facility] Bilirubin UA Negative Negative [facility] mg/dL [facility] Comment: Clinical correlation required for positi ve Urine Bilirubin results as false positive may occur with some drugs and d rug related products. If a false positive is suspected a serum total bili yeager should be considered if clinically indicated. Urobilinogen UA Normal Normal mg/dL [facility] pH UA 5.0 5.0 - 8.0 [facility] Blood UA Moderate (A) Negative mg/dL [facility] Ketones UA Negative Negative mg/dL [facility] Nitrite UA Negative Negative [facility] Leukocytes UA Negative Negative [facility] Appearance UA Hazy (A) Clear [facility] Spec [place] UA 1.025 1.002 - 1.030 [facility] Color UA Yellow Yellow [facility] Culture Reflexed No [facility] Specimen (Source) Anatomical Collection Method Collection Time Re ceived Time Location / / Volume Laterality Urine specimen 07/09/2017 12:05 7 obtained via AM EST 12:39 AM EST indwelling urinary catheter (specimen) Resulting Agency Comment Spec In Lab Yuan Webber MD URINE ORDERABLES Performing Organization Address City/[facility]/ZIP [facility] Phon e Number [address] POCT Glucose (07/08/2017 11:01 PM EST) athologist Signature POC Glucose 191 65 - 199 [facility]dL [facility] Comment: Supplemental ranges: <140 mg/dL before meals <180 mg/dL all other times of the day Specimen Anatomical Collection Method Collection Time Receive d Time (Source) Location / / Volume Laterality Blood specimen 07/08/2017 11:01 7 (specimen) PM EST 11:01 PM EST Yuan Webber MD POINT OF CARE TEST ORDERABLE S Performing Organization Address City/State/ZIP Code Phon e Number [address] POCT Glucose (07/08/2017 10:04 PM EST) athologist Signature POC Glucose 198 65 - 199 [facility]dL [facility] Comment: Supplemental ranges: <140 mg/dL before meals <180 mg/dL all other times of the day Specimen Anatomical Collection Method Collection Time Receive d Time (Source) Location / / Volume Laterality Blood specimen 07/08/2017 10:04 7 (specimen) PM EST 10:04 PM EST Yuan Webber MD POINT OF CARE TEST ORDERABLE S Performing Organization Address City/State/ZIP Code Phon e Number [address] Prepare Albumin 5% [...] [facility]OWN BLOOD BANK ORDERABLES Performing Organization Address City/[facility]/ZIP [place] [address] POCT Glucose (07/08/2017 8:28 PM EST) athologist Signature POC Glucose 195 65 - 199 [facility]/dL [facility] Comment: Supplemental ranges: <140 mg/dL before meals <180 mg/dL all other times of the day Specimen Anatomical Collection Method Collection Time Receive d Time (Source) Location / / Volume Laterality Blood specimen 07/08/2017 8:28 PM 017 8:28 (specimen) EST PM EST Yuan Webber MD POINT OF CARE TEST ORDERABLE S Performing Organization Address City/[facility]/ZIP [place] [address] (ABNORMAL) POCT Glucose (07/08/2017 7:13 PM EST) athologist Signature POC Glucose 220 (H) 65 - 199 [facility] mg/dL [facility] Comment: Supplemental ranges: <140 mg/dL before meals <180 mg/dL all other times of the day Specimen Anatomical Collection Method Collection Time Receive d Time (Source) Location / / Volume Laterality Blood specimen 07/08/2017 7:13 PM 017 7:13 (specimen) EST PM EST Yuan Webber MD POINT OF CARE TEST ORDERABLE S Performing Organization Address City/State/[place] [address] POCT Glucose (07/08/2017 5:04 PM EST) P athologist Signature POC Glucose 147 65 - 199 [facility] mg/dL [facility] Comment: Supplemental ranges: <140 mg/dL before meals <180 mg/dL all other times of the day Specimen Anatomical Collection Method Collection Time Receive d Time (Source) Location / / Volume Laterality Blood specimen 07/08/2017 5:04 PM 017 5:04 (specimen) EST PM EST Yuan Webber MD POINT OF CARE TEST ORDERABLE S Performing Organization Address City/State/ZIP Code Phon e Number [place] [id number] (ABNORMAL) BLOOD GAS 2 ARTERIAL (07/08/2017 4:13 PM EST) Analysis Performed At Patho logist Time Signature pH Art 7.38 7.35 - [facility] 7.45 [facility] pCO2 Art 36 35 - 45 [facility] LABORATORY pO2 Art 91 85 - 104 [facility]ORY HCO3 Art 20.9 20.0 - [facility] 26.0 [facility] mmol/L [facility] BE Art -4.2 (L) -3.0 - 3.0 [facility] mmol/L [facility] Hgb Blood Gas 11.7 (L) 13.7 - [facility] 16.5 gm/dL [facility] O2HB Art 95.1 94.0 - [facility] 97.0 % [facility] COHB Art 0.6 % [facility] [...] Lactate WB 1.4 0.5 - 2.2 mmol/L [facility] FIO2 Art 40 % [facility] PF Ratio Art 228 [facility] Specimen Anatomical Collection Method Collection Time Receive d Time (Source) Location / / Volume Laterality Blood specimen 07/08/2017 4:13 PM 017 4:13 (specimen) EST PM EST Yuan Webber MD CHEMISTRY ORDERABLES Performing Organization Address City/State/ZIP Code Phon e Number [address] POCT Glucose (07/08/2017 4:01 PM EST) athologist Signature POC Glucose 148 65 - 199 [facility] mg/dL [facility] Comment: Supplemental ranges: <140 mg/dL before meals <180 mg/dL all other times of the day Specimen Anatomical Collection Method Collection Time Receive d Time (Source) Location / / Volume Laterality Blood specimen 07/08/2017 4:01 PM 017 4:01 (specimen) EST PM EST Yuan Webber MD POINT OF CARE TEST ORDERABLE S Performing Organization Address City/State/ZIP [place] [address] POCT Glucose (07/08/2017 3:21 PM EST) P athologist Signature POC Glucose 118 65 - 199 [facility] mg/dL [facility] Comment: Supplemental ranges: <140 mg/dL before meals <180 mg/dL all other times of the day Specimen Anatomical Collection Method Collection Time Receive d Time (Source) Location / / Volume Laterality Blood specimen 07/08/2017 3:21 PM 017 3:21 (specimen) EST PM EST Yuan Webber MD POINT OF CARE TEST ORDERABLE S Performing Organization Address City/State/ZIP Code Phon e Number [address] POCT Glucose (07/08/2017 2:01 PM EST) athologist Signature POC Glucose 129 65 - 199 [place] SU mg/dL [facility] Comment: Supplemental ranges: <140 mg/dL before meals <180 mg/dL all other times of the day Specimen Anatomical Collection Method Collection Time Receive d Time (Source) Location / / Volume Laterality Blood specimen 07/08/2017 2:01 PM 017 2:01 (specimen) EST PM EST Yuan Webber MD POINT OF CARE TEST ORDERABLE S Performing Organization Address City/State/ZIP [place] [address] POCT Glucose (07/08/2017 11:53 AM EST) athologist Signature POC Glucose 156 65 - 199 K[place] SU mg/dL [facility] Comment: Supplemental ranges: <140 mg/dL before meals <180 mg/dL all other times of the day Specimen Anatomical Collection Method Collection Time Receive d Time (Source) Location / / Volume Laterality Blood specimen 07/08/2017 11:53 7 (specimen) AM EST 11:53 AM EST Yuan Webber MD POINT OF CARE TEST ORDERABLE S Performing Organization Address City/State/ZIP Code Phon e Number [address] POCT Glucose (07/08/2017 11:04 AM EST) athologist Signature POC Glucose 181 65 - 199 [facility] mg/dL [facility] Comment: Supplemental ranges: <140 mg/dL before meals <180 mg/dL all other times of the day Specimen Anatomical Collection Method Collection Time Receive d Time (Source) Location / / Volume Laterality Blood specimen 07/08/2017 11:04 07/08/201 7 (specimen) AM EST 11:04 AM EST Yuan Webber MD POINT OF CARE TEST ORDERABLE S Performing Organization Address City/[facility]/ZIP [place] [address] (ABNORMAL) POCT Glucose (07/08/2017 9:24 AM EST) P athologist Signature POC Glucose 203 (H) 65 - 199 [facility] mg/dL [facility] Comment: Supplemental ranges: <140 mg/dL before meals <180 mg/dL all other times of the day Specimen Anatomical Collection Method Collection Time Receive d Time (Source) Location / / Volume Laterality Blood specimen 07/08/2017 9:24 AM 017 9:24 (specimen) EST AM EST Yuan Wbeber MD POINT OF CARE TEST ORDERABLE S Performing Organization Address [facility] [place] [address] APTT (07/08/2017 8:40 AM EST) P athologist Signature PTT 33 25 - 35 sec [facility] Comment: The recommended therapeutic range for fu ll dose, unfractionated heparin at [facility] is 80 ? 114 [...] Webber MD HEMATOLOGY ORDERABLES Performing Organization Address City/[facility]/ZIP [place] [address] (ABNORMAL) Prothrombin Time (07/08/2017 [...] Webber MD HEMATOLOGY ORDERABLES Performing Organization Address City/[facility]/ZIP [place] [address] (ABNORMAL) POCT Glucose (07/08/2017 7:38 AM EST) P athologist Signature POC Glucose 232 (H) 65 - 199 [facility] mg/dL [facility] Comment: Supplemental ranges: <140 mg/dL before meals <180 mg/dL all other times of the day Specimen Anatomical Collection Method Collection Time Receive d Time (Source) Location / / Volume Laterality Blood specimen 07/08/2017 7:38 AM 017 7:38 (specimen) EST AM EST Yuan Webber MD POINT OF CARE TEST ORDERABLE S Performing Organization Address City/State/ZIP [place] [address] (ABNORMAL) POCT Glucose (07/08/2017 7:07 AM EST) P athologist Signature POC Glucose 234 (H) 65 - 199 [facility] mg/dL [facility] Comment: Supplemental ranges: <140 mg/dL before meals <180 mg/dL all other times of the day Specimen Anatomical Collection Method Collection Time Receive d Time (Source) Location / / Volume Laterality Blood specimen 07/08/2017 7:07 AM 017 7:07 (specimen) EST AM EST Yuan Webber MD POINT OF CARE TEST ORDERABLE S Performing Organization Address City/State/ZIP [place] [address] (ABNORMAL) POCT Glucose (07/08/2017 6:04 AM EST) athologist Signature POC Glucose 225 (H) 65 - 199 [facility]/dL [facility] Comment: Supplemental ranges: <140 mg/dL before meals <180 mg/dL all other times of the day Specimen Anatomical Collection Method Collection Time Receive d Time (Source) Location / / Volume Laterality Blood specimen 07/08/2017 6:04 AM 017 6:04 (specimen) EST AM EST Yuan Webber MD POINT OF CARE TEST ORDERABLE S Performing Organization Address City/[facility]/ZIP [place] [address] (ABNORMAL) POCT Glucose (07/08/2017 5:31 AM EST) athologist Signature POC Glucose 216 (H) 65 - 199 [facility] mg/dL [facility] Comment: Supplemental ranges: <140 mg/dL before meals <180 mg/dL all other times of the day Specimen Anatomical Collection Method Collection Time Receive d Time (Source) Location / / Volume Laterality Blood specimen 07/08/2017 5:31 AM 017 5:31 (specimen) EST AM EST Yuan Webber MD POINT OF CARE TEST ORDERABLE S Performing Organization Address City/[facility]/ZIP [place] [address] (ABNORMAL) POCT Glucose (07/08/2017 4:52 AM EST) athologist Signature POC Glucose 257 (H) 65 - 199 [facility] mg/dL [facility] Comment: Supplemental ranges: <140 mg/dL before meals <180 mg/dL all other times of the day Specimen Anatomical Collection Method Collection Time Receive d Time (Source) Location / / Volume Laterality Blood specimen 07/08/2017 4:52 AM 017 4:52 (specimen) EST AM EST Daphne Shahid MD POINT OF CARE TEST ORDERABLE S Performing Organization Address City/State/[place] [address] (ABNORMAL) BLOOD GAS 2 ARTERIAL (07/08/2017 4:04 AM EST) Analysis Performed At Patho logist Time Signature pH Art 7.30 (L) 7.35 - [facility] 7.45 [facility] pCO2 Art 41 35 - 45 [facility] mmHg [facility] pO2 Art 83 (L) 85 - 104 [facility] LABORATORY HCO3 Art 19.6 (L) 20.0 - [facility] 26.0 [facility] mmol/[facility] LAB[facility] BE Art -6.8 (L) -3.0 - 3.0 [facility] mmol/L [facility] Hgb Blood Gas 12.2 (L) 13.7 - [facility] 16.5 gm/dL [facility] O2HB Art 93.5 (L) 94.0 - [facility] 97.0 % [facility] COHB Art 0.4 % [facility] Comment: Noted by instrumental musician. FIO2 Art 40 % [facility] PF Ratio Art 208 [facility] Specimen Anatomical Collection Method Collection Time Receive d Time (Source) Location / / Volume Laterality Blood specimen 07/08/2017 4:04 AM 017 4:04 (specimen) EST AM EST Daphne Shahid MD CHEMISTRY ORDERABLES Performing Organization Address City/[facility]/ZIP Code Phon e Number [address] Scan, Peripheral Blood [...] Webber MD HEMATOLOGY ORDERABLES Performing Organization Address City/[facility]/ZIP [place] [address] (ABNORMAL) Differential, Automated (07/08/2017 4:00 AM EST) Patholo gist Method Time Signature Neutrophils % 85.4 % [facility] Neutr Abs (ANC) 16.07 (H) 1.70 - [facility] 6.10 [facility] x10(3)/[facility] L LABORATORY Lymphocytes % 3.5 % [facility] Lymphocytes Abs 0.6 (L) 0.9 - 3.2 [facility] x10(3)/[facility] LABORATORY Monocytes % 10.4 % [facility] Monocyte Abs 2.0 (H) 0.3 - 0.9 [facility] x10(3)/[facility] LABORATORY Eosinophils % 0.0 % [facility] Eosinophils Abs 0.0 0.0 - 0.4 [facility] x10(3)/[facility] LABORATORY Basophils % 0.1 % [facility] Basophils Abs 0.0 0.0 - 0.1 [facility] x10(3)/[facility] LABORATORY Immature Gran % 0.60 % [facility] Comment: Immature granulocytes(IG's)percentage an d absolute count will include metamyelocytes, myelocytes, and promyelo cytes. Blood smears from CBCs yielding IG's will be scanned manually for concor dance. If this scan disagrees with the automated IG or if promyelocytes are not ed, a manual differential will be performed. Mleisa Gran Abs 0.12 (H) 0.00 - 0.04 x10(3)/[facility] LABORATORY Specimen Anatomical Collection Method Collection Time Receive d Time (Source) Location / / Volume Laterality Blood specimen 07/08/2017 4:00 AM 017 4:09 (specimen) EST AM EST Resulting Agency Comment Spec In Lab Yuan Webber MD HEMATOLOGY ORDERABLES Performing Organization Address City/State/[place] [address] (ABNORMAL) Hemogram (07/08/2017 4:00 AM EST) Analysis Performed At Patho logist Time Signature WBC 18.8 (H) 4.0 - 9.5 [facility] x10(3)/[facility] LABORATORY RBC 4.00 (L) 4.58 - [facility] 5.54 [facility] x10(6)/[facility] LABORATORY Hemoglobin 11.9 (L) 13.7 - [facility] 16.5 gm/dL [facility] Hematocrit 35.9 (L) 40.5 - [facility] 48.5 % [facility] MCV 89.8 82.9 - [facility] 93.1 [facility] LABORATORY MCH 29.8 27.5 - [facility] 32.1 pg [facility] MCHC 33.1 32.0 - [facility] 35.7 gm/dL [facility] Platelets 232 145 - 357 [facility] x10(3)/[facility] LABORATORY RDWSD 47.6 (H) 36.0 - [facility] 45.0 [facility] LABORATORY RDWCV 14.5 (H) 11.4 - [facility] 13.8 % [facility]ATORY MPV 9.5 7.6 - 12.9 [facility] LABORATORY nRBC % Auto 0.0 % [facility] nRBC Abs Auto 0.000 0.000 - [facility] 0.000 [facility] x10(3)/[facility] LABORATORY Specimen Anatomical Collection Method Collection Time Receive d Time (Source) Location / / Volume Laterality Blood specimen 07/08/2017 4:00 AM 017 4:09 (specimen) EST AM EST Resulting Agency Comment Spec In Lab Yuan Webber MD HEMATOLOGY ORDERABLES Performing Organization Address City/[facility] [place] [address] (ABNORMAL) Electrolytes panel (07/08/2017 4:00 AM EST) P athologist Signature Sodium 139 135 - 145 [facility] mmol/[facility] LAB[facility]ORY Potassium 4.7 3.5 - 5.0 [facility] mmol/[facility] Comment: result rechecked-JLK Please note: [...] Webber MD CHEMISTRY ORDERABLES Performing Organization Address City/[facility] [place] [address] (ABNORMAL) Cardiac Enzymes (LEB/CGP) (07/08/2017 4:00 AM EST) athologist Signature Troponin-T 1.88 (H) 0.00 - [facility] 0.00 ng/mL [facility] Comment: The 99th percentile [...] additional sample may be indicated. Reference: Third Weldon Definition of Myocardial Infarction. Journal of the [place] [employer] 2012;60:1581-98 CK, Total 413 (H) 0 - 200 unit/L [facility] Comment: result rechecked-JLK Specimen Anatomical Collection Method Collection Time Receive d Time (Source) Location / / Volume Laterality Blood specimen 07/08/2017 4:00 AM 017 4:09 (specimen) EST AM EST Resulting Agency Comment Spec In Lab Yuan Webber MD CHEMISTRY ORDERABLES Performing Organization Address City/State/[place] [address] (ABNORMAL) Glucose, fasting (07/08/2017 4:00 AM EST) athologist Signature Glucose 287 (H) 65 - 99 [facility] Fasting mg/dL [facility] Comment: ?Fasting* Glucose Interpretive [...] of Diabetes Mellitus, Position Statement from the [place] [employer]. ??Diabete s Care, Volume 33, Supplement 1, Jul 2009 Specimen Anatomical Collection Method Collection Time Receive d Time (Source) Location / / Volume Laterality Blood specimen 07/08/2017 4:00 AM 017 4:09 (specimen) EST AM EST Resulting Agency Comment Spec In Lab Yuan Webber MD CHEMISTRY ORDERABLES Performing Organization Address City/[facility] [place] [address] (ABNORMAL) Creatinine (07/08/2017 4:00 AM EST) Analysis Performed At [facility] Time Signature Creatinine 1.55 (H) 0.80 [facility] 1[facility] mg/dL [facility] Estimated GFR 44 (L) >=60 [facility] Comment: The reported eGFR should be multiplied b y 1.2 for patients. The MDRD is not an appropriate measure o f renal function for patients with body mass extremes or in patients with acute kidney failure. [email or web address] Specimen Anatomical Collection Method Collection Time Receive d Time (Source) Location / / Volume Laterality Blood specimen 07/08/2017 4:00 AM 017 4:09 (specimen) EST AM EST Resulting Agency Comment Spec In Lab Yuan Webber MD CHEMISTRY ORDERABLES Performing Organization Address [facility]/ZIP [facility] Phon e Number [address] BUN (07/08/2017 4:00 AM EST) athologist Signature BUN 16 10 - 20 [place] SU mg/dL [facility] LABORATORY Specimen Anatomical Collection Method Collection Time Receive d Time (Source) Location / / Volume Laterality Blood specimen 07/08/2017 4:00 AM 017 4:09 (specimen) EST AM EST Resulting Agency Comment Spec In Lab Yuan Webber MD CHEMISTRY ORDERABLES Performing Organization Address City/State/ZIP Code Phon e Number [address] (ABNORMAL) POCT Glucose (07/08/2017 3:00 AM EST) athologist Signature POC Glucose 273 (H) 65 - 199 K[place]ALINA ZHAOSU mg/dL [facility] LABORATORY Comment: Supplemental ranges: <140 mg/dL before meals <180 mg/dL all other times of the day Specimen Anatomical Collection Method Collection Time Receive d Time (Source) Location / / Volume Laterality Blood specimen 07/08/2017 3:00 AM 017 3:00 (specimen) EST AM EST Daphne Shahid MD POINT OF CARE TEST ORDERABLE S Performing Organization Address City/State/ZIP [place] [address] (ABNORMAL) POCT Glucose (07/08/2017 1:57 AM EST) athologist Signature POC Glucose 288 (H) 65 - 199 [facility] LABORATORY Comment: Supplemental ranges: <140 mg/dL before meals <180 mg/dL all other times of the day Specimen Anatomical Collection Method Collection Time Receive d Time (Source) Location / / Volume Laterality Blood specimen 07/08/2017 1:57 AM 017 1:57 (specimen) EST AM EST Daphne Shahid MD POINT OF CARE TEST ORDERABLE S Performing Organization Address City/State/ZIP [place] [address] (ABNORMAL) POCT Glucose (07/08/2017 1:01 AM EST) athologist Signature POC Glucose 315 (H) 65 - 199 [facility] mg/dL [facility] LABORATORY Comment: Supplemental ranges: <140 mg/dL before meals <180 mg/dL all other times of the day Specimen Anatomical Collection Method Collection Time Receive d Time (Source) Location / / Volume Laterality Blood specimen 07/08/2017 1:01 AM 017 1:01 (specimen) EST AM EST Daphne Shahid MD POINT OF CARE TEST ORDERABLE S Performing Organization Address City/State/[place] [address] (ABNORMAL) BLOOD GAS 2 ARTERIAL (07/08/2017 12:09 AM EST) athologist Signature pH Art 7.26 7.35 - [facility] (Critical) 7.45 [facility] LABORATORY Comment: Noted by instrumental musician. pCO2 Art 41 35 - 45 mmHg [facility] LABORATORY pO2 Art 96 85 - 104 mmHg [facility] LABORATORY HCO3 Art 17.7 (L) 20.0 - 26.0 mmol/L [facility] LABORATORY BE Art -9.4 (L) -3.0 - 3.0 mmol/L [facility] LABORATORY Hgb Blood Gas 12.4 (L) 13.7 - 16.5 gm/dL [facility] LABORATORY O2HB Art 94.7 94.0 - 97.0 % [facility] LABORATORY COHB Art 0.2 % [place] [facility] LAB[facility] Comment: Noted by instrumental musician. FIO2 Art 40 % [facility] LABORATORY PF Ratio Art 240 [facility] LABORATORY Specimen Anatomical Collection Method Collection Time Receive d Time (Source) Location / / Volume Laterality Blood specimen Arterial Draw / 07/08/2017 12:09 2016 5:31 (specimen) Unknown AM EST AM EST Resulting Agency Comment Spec In Lab Samy Maldonado MD CHEMISTRY ORDERABLES Performing Organization Address City/[facility]/ZIP [place] [address] (ABNORMAL) POCT Glucose (07/07/2017 10:56 PM EST) P athologist Signature POC Glucose 292 (H) 65 - 199 [facility] mg/dL [facility] LABORATORY Comment: Supplemental ranges: <140 mg/dL before meals <180 mg/dL all other times of the day Specimen Anatomical Collection Method Collection Time Receive d Time (Source) Location / / Volume Laterality Blood specimen 07/07/2017 10:56 7 (specimen) PM EST 10:56 PM EST Daphne Shahid MD POINT OF CARE TEST ORDERABLE S Performing Organization Address City/State/ZIP [place] [address] (ABNORMAL) BLOOD GAS 2 ARTERIAL (07/07/2017 10:04 PM EST) P athologist Signature pH Art 7.22 7.35 - [facility] (Critical) 7.45 [facility] LABORATORY Comment: Noted by instrumental musician. pCO2 Art 42 35 - 45 mmHg [facility] LABORATORY pO2 Art 94 85 - 104 mmHg [facility] LABORATORY HCO3 Art 16.9 (L) 20.0 - 26.0 mmol/L [facility] LABORAT[facility] BE Art -10.7 (L) -3.0 - 3.0 mmol/L [facility] LABORATORY Hgb Blood Gas 13.0 (L) 13.7 - 16.5 gm/dL [facility] LABORATORY O2HB Art 93.8 (L) 94.0 - 97.0 % [facility] LABORATORY COHB Art 0.7 % [facility] LABORATORY Comment: Nonsmokers: 0.5-1.5% COHB Smokers: Variable, but usually less than 10% Toxic: 20-30% COHB Lethal: Greater than 60% COHB METHB Art 0.7 <=1.5 % [facility] LABORATORY Na Whole Blood 140 135 - 145 mmol/L [facility] LABORATORY K Whole Blood 3.3 (L) [...] [facility] Comment: Noted by instrumental musician. FIO2 Art 40 % [facility] LABORATORY PF Ratio Art 235 [facility] LABORATORY Specimen Anatomical Collection Method Collection Time Receive d Time (Source) Location / / Volume Laterality Blood specimen 07/07/2017 10:04 7 (specimen) PM EST 10:04 PM EST Daphne Shahid MD CHEMISTRY ORDERABLES Performing Organization Address City/[facility]/ZIP [place] [address] (ABNORMAL) Hemoglobin (07/07/2017 10:00 PM EST) athologist [facility] Hemoglobin 12.8 (L) 13.7 - [place] SU 16.5 gm/dL [facility] LABORATORY Specimen Anatomical Collection Method Collection Time Receive d Time (Source) Location / / Volume Laterality Blood specimen 07/07/2017 10:00 7 (specimen) PM EST 10:13 PM EST Resulting Agency Comment Spec In Lab Yuan Webber MD HEMATOLOGY ORDERABLES Performing Organization Address City/[facility] [place] [address] (ABNORMAL) Potassium (07/07/2017 10:00 PM EST) athologist [facility] Potassium 3.4 (L) 3.5 - 5.0 [facility] mmol/L [facility] LABORATORY Comment: Please note: ??Patients [...] Webber MD CHEMISTRY ORDERABLES Performing Organization Address City/[facility]/ZIP [place] [address] (ABNORMAL) POCT Glucose (07/07/2017 8:49 PM EST) athologist [facility] POC Glucose 241 (H) 65 - 199 [facility] mg/dL [facility] LABORATORY Comment: Supplemental ranges: <140 mg/dL before meals <180 mg/dL all other times of the day Specimen Anatomical Collection Method Collection Time Receive d Time (Source) Location / / Volume Laterality Blood specimen 07/07/2017 8:49 PM 017 8:49 (specimen) EST PM EST Daphne Shahid MD POINT OF CARE TEST ORDERABLE S Performing Organization Address City/[facility]/ZIP [place] [address] Prepare Albumin 5% in [...] BLOOD BANK ORDERABLES Performing Organization Address [facility] [place] [address] EKG 12 Lead (07/07/2017 7:17 PM EST) Component Value Ref Range Test Analysis Performed Pathologis t Method Time At Signature Ventricular rate 75 BPM MUSE SYSTEM Atrial Rate 75 BPM MUSE SYSTEM P-R Interval 168 ms MUSE SYSTEM QRS Duration 104 ms MUSE SYSTEM Q-T Interval 462 ms MUSE SYSTEM QTC Calculated 515 ms MUSE SYSTEM (Bezet) Calculated P Mclaughlin 52 degrees MUSE SYSTEM Calculated R Mclaughlin -40 degrees MUSE SYSTEM Calculated T Mclaughlin 39 degrees MUSE SYSTEM INTERPRETATION Normal sinus [...] Webber MD ECG ORDERABLES Performing Organization Address City/[facility]/ZIP Code Phon e Number MUSE SYSTEM [...] 7.21 7.35 - [place] DAVIS (Critical) 7.45 [facility] LABORATORY Comment: Noted by instrumental musician. pCO2 Art 50 (H) 35 - 45 mmHg [facility] LABORATORY pO2 Art 238 (H) 85 - 104 mmHg [facility] LABORATORY HCO3 Art 19.8 (L) 20.0 - 26.0 mmol/L [facility] LABORATORY BE Art -8.1 (L) -3.0 - 3.0 mmol/L [facility] LABORATORY Hgb Blood Gas 12.8 (L) 13.7 - 16.5 gm/dL [facility] LABORATORY O2HB Art 97.5 (H) 94.0 - 97.0 % [facility] LABORATORY COHB Art 0.5 % [facility] LABORATORY Comment: Nonsmokers: 0.5-1.5% COHB Smokers: Variable, but usually less than 10% Toxic: 20-30% COHB Lethal: Greater than 60% COHB METHB Art 0.7 <=1.5 % [facility] LABORATORY Na Whole Blood 140 135 - 145 mmol/L [facility] LABORAT[facility] K Whole Blood 3.0 (Critical) 3.5 - 5.0 mmol/L [facility] LABORATORY Comment: Noted by instrumental musician. Please note: Patients with WBC >100,000 may [...] [facility] Comment: Noted by instrumental musician. FIO2 Art 100 % [facility] LABORATORY PF Ratio Art 238 [facility] LABORATORY Specimen Anatomical Collection Method Collection Time Receive d Time (Source) Location / / Volume Laterality Blood specimen 07/07/2017 6:57 PM 017 6:57 (specimen) EST PM EST Daphne Shahid MD CHEMISTRY ORDERABLES Performing Organization Address City/State/[place] [address] (ABNORMAL) BLOOD GAS 2 ARTERIAL (07/07/2017 5:31 PM EST) P athologist Signature pH Art 7.29 7.35 - [facility] (Critical) 7.45 [facility] LABORATORY Comment: Noted by instrumental musician. pCO2 Art 48 (H) 35 - 45 mmHg [facility] LABORATORY pO2 Art 137 (H) 85 - 104 mmHg [facility] LABORATORY HCO3 Art 22.4 20.0 - 26.0 mmol/L [facility] LABOR[facility] BE Art -4.3 (L) -3.0 - 3.0 mmol/L [facility] LABORATORY Hgb Blood Gas 10.0 (L) 13.7 - 16.5 gm/dL [facility] LABORATORY O2HB Art 97.3 (H) 94.0 - 97.0 % [facility] LABORATORY COHB Art 0.3 % [facility] LABORATORY Comment: Nonsmokers: 0.5-1.5% COHB Smokers: Variable, but usually less than 10% Toxic: 20-30% COHB Lethal: Greater than 60% COHB METHB Art 0.3 <=1.5 % [facility] LABORATORY Na Whole Blood 132 (L) 135 - 145 mmol/L [facility] LABOR[facility] K Whole Blood 4.0 3.5 [...] WB 3.1 (H) 0.5 - 2.2 mmol/L [facility] LABORATORY Specimen Anatomical Collection Method Collection Time Receive d Time (Source) Location / / Volume Laterality Blood specimen 07/07/2017 5:31 PM 017 5:31 (specimen) EST PM EST Daphne Shahid MD CHEMISTRY ORDERABLES Performing Organization Address [facility] Phon e Number [address] Fibrinogen (07/07/2017 5:30 PM EST) athologist Signature Fibrinogen 224 180 - 510 [facility] mg/dL [facility] LABORATORY Comment: Called by: JEET, [...] MD HEMATOLOGY ORDERABLES Performing Organization Address [facility] Phon e Number [address] APTT (07/07/2017 5:30 PM EST) athologist Signature PTT 30 25 - 35 sec [facility] LABORATORY Comment: The recommended therapeutic range for fu ll dose, unfractionated heparin at [facility] is 80 ? 114 [...] Perez MD HEMATOLOGY ORDERABLES Performing Organization Address City/[facility]/ZIP [place] [address] (ABNORMAL) Prothrombin Time (07/07/2017 [...] Perez MD HEMATOLOGY ORDERABLES Performing Organization Address City/[facility]/[place] [address] (ABNORMAL) Hemogram (07/07/2017 5:30 PM EST) P athologist Signature WBC 19.6 (H) 4.0 - 9.5 [facility] x10(3)/[facility] LABORATORY RBC 3.08 (L) 4.58 - [facility] 5.54 [facility] x10(6)/[facility] LABORATORY Hemoglobin 9.2 (L) 13.7 - [facility] 16.5 gm/dL [facility] LABORATORY Hematocrit 28.0 (L) 40.5 - [facility] 48.5 % [facility] LABORATORY Comment: This result has been called to MONICAVeda MORAN by DONALD GROSSMAN on 07 07 2017 at 1759, and has been read back. MCV 90.9 82.9 - 93.1 fL [facility] LABORATORY MCH 29.9 27.5 - 32.1 pg [facility] LABORATORY MCHC 32.9 32.0 - 35.7 gm/dL [facility] LABORATORY Platelets 155 145 - 357 x10(3)/[facility] LABORATORY RDWSD 46.5 (H) 36.0 - 45.0 [facility] LABORATORY RDWCV 14.1 (H) 11.4 - 13.8 % [facility] LABORATORY MPV 9.5 7.6 - 12.9 fL [facility] LABORATORY nRBC % Auto 0.0 % [facility] LABORATORY nRBC Abs Auto 0.000 0.000 - 0.000 x10(3)/[facility] LABORATORY Specimen Anatomical Collection Method Collection Time Receive d Time (Source) Location / / Volume Laterality Blood specimen 07/07/2017 5:30 PM 017 5:34 (specimen) EST PM EST Resulting Agency Comment Spec In Lab Yifan Perez MD HEMATOLOGY ORDERABLES Performing Organization Address City/[facility]/ZIP Code Phon e Number [address] Prepare Platelets, Apheresis (07/07/2017 5:00 PM EST) athologist Signature Dispensed? Yes [facility] LABORATORY Specimen Anatomical Collection Method Collection Time Receive d Time (Source) Location / / Volume Laterality Blood specimen 07/07/2017 5:00 PM 017 4:58 (specimen) EST PM EST Daphne Shahid MD BLOOD BANK ORDERABLES Performing Organization Address City/[facility]/ZIP [facility] Phon e Number [address] Platelet count (07/07/2017 4:55 PM EST) P athologist Signature Platelets 177 145 - 357 [facility] x10(3)/[facility] LABORATORY Plat Immature 1.5 0.0 - 7.4 [facility] % [facility] LABORATORY Comment: Limitation of the Immature Platelet Frac tion (IPF)-May be less reliable when the platelet count is less than 25v366/u L due to statistical imprecision. The IPF [...] in a decreased state of production. References: [employer] The Clinical Value of the Immature Platelet Fraction (IPF) in Cell Recovery Document Number 10-1143 12/2010 [employer] The Role of the Imm ature [...] City/State/ZIP Code Phon e Number [place] [id number] HOS[address] LAB[address]ORY Drive (ABNORMAL) Hemoglobin and Hematocrit, blood (07/07/2017 4:55 PM EST) P athologist Signature Hemoglobin 9.1 (L) 13.7 - 16.5 [facility] gm/dL [facility] LABORATORY Comment: This result has [...] Organization Address City/State/[place] [address] (ABNORMAL) BLOOD GAS 2 ARTERIAL (07/07/2017 4:38 PM EST) Analysis Performed At Patho logist Time Signature pH Art 7.37 7.35 - [facility] 7.45 [facility] LABORATORY pCO2 Art 44 35 - 45 [facility] mmHg [facility] LABORATORY pO2 Art 322 (H) 85 - 104 [facility] LABORATORY HCO3 Art 24.9 20.0 - [facility] 26.0 [facility] mmol/[facility] LABORATORY BE Art -0.4 -3.0 - 3.0 [facility] mmol/L [facility] LABORATORY Hgb Blood Gas 10.1 (L) 13.7 - [facility] 16.5 gm/dL [facility] O2HB Art 98.7 (H) 94.0 - [facility] 97.0 % [facility] LABORATORY COHB Art 0.1 % [facility] LABORATORY Comment: Nonsmokers: 0.5-1.5% COHB Smokers: Variable, but usually less than 10% Toxic: 20-30% COHB Lethal: Greater than 60% COHB METHB Art 0.3 <=1.5 % [facility] LABORATORY Na Whole Blood 130 (L) 135 - 145 mmol/L [facility] LABORATORY K Whole Blood 5.7 (H) 3.5 - 5.0 mmol/L [facility] LABORATORY Comment: Please note: Patients with WBC >100,000 may have falsely elevated Potassium levels. Contact the Clinical Chemistry L aboratory if there are any questions. ICa Whole Blood 0.89 (Critical) 1.15 - 1.33 mmol/L [facility] LABORATORY Comment: Noted by instrumental musician. Note: ??Total bilirubin higher than 20 m g/dL may lead to falsely low ionized calcium. CL Whole Blood 101 98 - 107 mmol/L [facility] LABORATORY Gluc Whole Bld 295 (H) 65 - 199 mg/dL [facility] LABORATORY Comment: Diabetes: >=200 mg/dL plus symp toms. Lactate WB 1.7 0.5 - 2.2 mmol/L [facility] LABORATORY Specimen Anatomical Collection Method Collection Time Receive d Time (Source) Location / / Volume Laterality Blood specimen 07/07/2017 4:38 PM 017 4:38 (specimen) EST PM EST Daphne Shahid MD CHEMISTRY ORDERABLES Performing Organization Address City/State/[place] [address] (ABNORMAL) BLOOD GAS 2 VENOUS (07/07/2017 4:06 PM EST) Analysis Performed At Patho logist Time Signature pH Cody 7.31 (L) 7.32 - [facility] 7.42 [facility] LABORATORY pCO2 Cody 47 41 - 51 [facility] LABORATORY pO2 Cody 53 (H) 25 - 40 [facility] LABORATORY HCO3 Cody 22.7 mmol/L [facility] LABORATORY BE Cody -3.7 mmol/L [facility] LABORATORY Hgb Blood Gas 10.2 (L) 13.7 - [facility] 16.5 gm/dL [facility] LABORATORY O2HB Cody 81.0 % [facility] LABORATORY COHB Cody 1.0 % [facility] LABORATORY Comment: Nonsmokers: 0.5-1.5% COHB Smokers: Variable, but usually less than 10% Toxic: 20-30% COHB Lethal: Greater than 60% COHB METHB Cody 0.3 <=1.5 % [facility] LABORATORY Na Whole Blood 132 (L) 135 - 145 mmol/L [facility] LABORAT[facility] K Whole Blood 5.3 (H) 3.5 - 5.0 mmol/L [facility] LABORATORY Comment: Please note: Patients with WBC >100,000 may have falsely elevated Potassium levels. Contact the Clinical Chemistry L aboratory if there are any questions. ICa Whole Blood 0.90 (Critical) 1.15 - 1.33 mmol/L [facility] LABORATORY Comment: Noted by instrumental musician. Note: ??Total bilirubin higher than 20 m g/dL may lead to falsely low ionized calcium. CL Whole Blood 100 98 - 107 mmol/L [facility] LABORATORY Gluc Whole Bld 231 (H) 65 - 199 mg/dL [facility] LABORATORY Comment: Diabetes: >=200 mg/dL plus symp toms Lactate WB 1.1 0.5 - 2.2 mmol/L [facility] LABORATORY BGas Source Venous [facility] LABORATORY Specimen Anatomical Collection Method Collection Time Receive d Time (Source) Location / / Volume Laterality Blood specimen 07/07/2017 4:06 PM 017 4:06 (specimen) EST PM EST Daphne Shahid MD CHEMISTRY ORDERABLES Performing Organization Address City/State/[place] [address] (ABNORMAL) BLOOD GAS 2 ARTERIAL (07/07/2017 4:05 PM EST) Analysis Performed At Patho logist Time Signature pH Art 7.36 7.35 - [facility] 7.45 [facility] LABORATORY pCO2 Art 40 35 - 45 [facility] LABORATORY pO2 Art 282 (H) 85 - 104 [facility] LABORATORY HCO3 Art 22.1 20.0 - [facility] 26.0 [facility] mmol/[facility] LABORATORY BE Art -3.4 (L) -3.0 - 3.0 [facility] mmol/L [facility] LABORATORY Hgb Blood Gas 10.2 (L) 13.7 - [facility] 16.5 gm/dL [facility] LABORATORY O2HB Art 98.4 (H) 94.0 - [facility] 97.0 % [facility] LABORATORY COHB Art 0.3 % [facility] LABORATORY Comment: Nonsmokers: 0.5-1.5% COHB Smokers: Variable, but usually less than 10% Toxic: 20-30% COHB Lethal: Greater than 60% COHB METHB Art 0.3 <=1.5 % [facility] LABORATORY Na Whole Blood 131 (L) 135 - 145 mmol/L [facility] LABOR[facility] K Whole Blood 5.4 (H) 3.5 - 5.0 mmol/L [facility] LABOR[facility] Comment: Please note: Patients with WBC >100,000 may have falsely elevated Potassium levels. Contact the Clinical Chemistry L aboratory if there are any questions. ICa Whole Blood 0.86 (Critical) 1.15 - 1.33 mmol/L [facility] LABORATORY Comment: Noted by instrumental musician. Note: ??Total bilirubin higher than 20 m g/dL may lead to falsely low ionized calcium. CL Whole Blood 101 98 - 107 mmol/L [facility] Gluc Whole Bld 260 (H) 65 - 199 mg/dL [facility] LABORATORY Comment: Diabetes: >=200 mg/dL plus symp toms. Lactate WB 1.4 0.5 - 2.2 mmol/L [facility] LABORATORY Specimen Anatomical Collection Method Collection Time Receive d Time (Source) Location / / Volume Laterality Blood specimen 07/07/2017 4:05 PM 017 4:05 (specimen) EST PM EST Daphne Shahid MD CHEMISTRY ORDERABLES Performing Organization Address City/State/[place] [address] (ABNORMAL) BLOOD GAS 2 ARTERIAL (07/07/2017 2:29 PM EST) Analysis Performed At Patho logist Time Signature pH Art 7.43 7.35 - [facility] 7.45 [facility] LABORATORY pCO2 Art 36 35 - 45 [facility] mmHg [facility] LABORATORY pO2 Art 221 (H) 85 - 104 [facility] LABORATORY HCO3 Art 23.2 20.0 - [facility] 26.0 [facility] mmol/L [facility] LABORATORY BE Art -1.2 -3.0 - 3.0 [facility] mmol/L [facility] LABORATORY Hgb Blood Gas 13.9 13.7 - [facility] 16.5 gm/dL [facility] LABORATORY O2HB Art 97.8 (H) 94.0 - [facility] 97.0 % [facility] LABORATORY COHB Art 1.1 % [facility] [...] Lactate WB 1.5 0.5 - 2.2 mmol/L [facility] LABORATORY Specimen Anatomical Collection Method Collection Time Receive d Time (Source) Location / / Volume Laterality Blood specimen 07/07/2017 2:29 PM 017 2:29 (specimen) EST PM EST Daphne Shahid MD CHEMISTRY ORDERABLES Performing Organization Address City/[facility]/ZIP [place] [address] Prepare Coag Factors (Non-Hemophilia) (07/07/2017 1:25 PM EST) P athologist Signature Dispensed? Yes [facility] LABORATORY Specimen Anatomical Collection Method Collection Time Receive d Time (Source) Location / / Volume Laterality Blood specimen 07/07/2017 1:25 PM 017 1:21 (specimen) EST PM EST Daphne Shahid MD BLOOD BANK ORDERABLES Performing Organization Address City/[facility]/ZIP [place] [address] [address] Prepare RBC (07/07/2017 1:10 PM EST) P athologist Signature Dispensed? Yes [facility] LABORATORY Specimen Anatomical Collection Method Collection Time Receive d Time (Source) Location / / Volume Laterality Blood specimen 07/07/2017 1:10 PM 017 1:05 (specimen) EST PM EST Daphne Shahid MD BLOOD BANK ORDERABLES Performing Organization Address City/[facility]/ZIP Code Phon e Number [address] POCT Glucose (07/07/2017 11:56 AM EST) P athologist Signature POC Glucose 188 65 - 199 [place] mg/dL [facility] LABORATORY Comment: Supplemental ranges: <140 mg/dL before meals <180 mg/dL all other times of the day Specimen Anatomical Collection Method Collection Time Receive d Time (Source) Location / / Volume Laterality Blood specimen 07/07/2017 11:56 7 (specimen) AM EST 11:56 AM EST Daphne Shahid MD POINT OF CARE TEST ORDERABLE S Performing Organization Address City/[facility]/ZIP Code Phon e Number [address] POCT Glucose (07/07/2017 11:05 AM EST) P athologist Signature POC Glucose 168 65 - 199 [place] mg/dL [facility] LABORATORY Comment: Supplemental ranges: <140 mg/dL before meals <180 mg/dL all other times of the day Specimen Anatomical Collection Method Collection Time Receive d Time (Source) Location / / Volume Laterality Blood specimen 07/07/2017 11:05 7 (specimen) AM EST 11:05 AM EST Daphne Shahid MD POINT OF CARE TEST ORDERABLE S Performing Organization Address City/[facility]/ZIP Code Phon e Number [address] POCT Glucose (07/07/2017 10:02 AM EST) P athologist Signature POC Glucose 191 65 - 199 [place] mg/dL [facility] LABORATORY Comment: Supplemental ranges: <140 mg/dL before meals <180 mg/dL all other times of the day Specimen Anatomical Collection Method Collection Time Receive d Time (Source) Location / / Volume Laterality Blood specimen 07/07/2017 10:02 7 (specimen) AM EST 10:02 AM EST Daphne Shahid MD POINT OF CARE TEST ORDERABLE S Performing Organization Address City/State/ZIP Code Phon e Number [address] POCT Glucose (07/07/2017 7:53 AM EST) athologist Signature POC Glucose 178 65 - 199 [place] mg/dL [facility] LABORATORY Comment: Supplemental ranges: <140 mg/dL before meals <180 mg/dL all other times of the day Specimen Anatomical Collection Method Collection Time Receive d Time (Source) Location / / Volume Laterality Blood specimen 07/07/2017 7:53 AM 017 7:53 (specimen) EST AM EST Daphne Shahid MD POINT OF CARE TEST ORDERABLE S Performing Organization Address City/[facility]/ZIP Code Phon e Number [address] POCT Glucose (07/07/2017 7:03 AM EST) athologist Signature POC Glucose 188 65 - 199 [facility] SU mg/dL [facility] LABORATORY Comment: Supplemental ranges: <140 mg/dL before meals <180 mg/dL all other times of the day Specimen Anatomical Collection Method Collection Time Receive d Time (Source) Location / / Volume Laterality Blood specimen 07/07/2017 7:03 AM 017 7:03 (specimen) EST AM EST Daphne Shahid MD POINT OF CARE TEST ORDERABLE S Performing Organization Address City/State/ZIP Code Phon e Number [address] (ABNORMAL) POCT Glucose (07/07/2017 6:17 AM EST) athologist Signature POC Glucose 207 (H) 65 - 199 [facility] SU mg/dL [facility] LABORATORY Comment: Supplemental ranges: <140 mg/dL before meals <180 mg/dL all other times of the day Specimen Anatomical Collection Method Collection Time Receive d Time (Source) Location / / Volume Laterality Blood specimen 07/07/2017 6:17 AM 017 6:17 (specimen) EST AM EST Daphne Shahid MD POINT OF CARE TEST ORDERABLE S Performing Organization Address City/State/ZIP Code Phon e Number [place] [id number] Differential, Automated (07/07/2017 5:15 AM EST) P athologist Signature Neutrophils % 69.7 % [facility] LABORATORY Neutr Abs (ANC) 5.32 1.70 - [facility] 6.10 [facility] x10(3)/[facility] LABORATORY Lymphocytes % 16.3 % [facility] LABORATORY Lymphocytes Abs 1.2 0.9 - 3.2 [facility] x10(3)/[facility] LABORATORY Monocytes % 10.5 % [facility] LABORATORY Monocyte Abs 0.8 0.3 - 0.9 [facility] x10(3)/[facility] LABORATORY Eosinophils % 2.5 % [facility] LABORATORY Eosinophils Abs 0.2 0.0 - 0.4 [facility] x10(3)/[facility] LABORATORY Basophils % 0.7 % [facility] LABORATORY Basophils Abs 0.0 0.0 - 0.1 [facility] x10(3)/[facility] LABORATORY Immature Gran % 0.30 % [...] Melisa Gran Abs 0.02 0.00 - 0.04 x10(3)/[facility] MAR Y [facility] LABORATORY Specimen Anatomical Collection Method Collection Time Receive d Time (Source) Location / / Volume Laterality Blood specimen 07/07/2017 5:15 AM 017 5:34 (specimen) EST AM EST Resulting Agency Comment Spec In Lab Daphne Shahid MD HEMATOLOGY ORDERABLES Performing Organization Address City/State/[place] [address] (ABNORMAL) Hemogram (07/07/2017 5:15 AM EST) Analysis Performed At Patho logist Time Signature WBC 7.6 4.0 - 9.5 [facility] x10(3)/[facility] LABORATORY RBC 4.82 4.58 - [place] 5.54 [facility] x10(6)/[facility] LABORATORY Hemoglobin 14.4 13.7 - [facility] 16.[facility] gm/dL [facility] LABORATORY Hematocrit 42.1 40.5 - [facility] 48.5 % [facility] LABORATORY MCV 87.3 82.9 - [facility] 93.1 [facility] LABORATORY MCH 29.9 27.5 - [facility] 32.1 pg [facility] LABORATORY MCHC 34.2 32.0 - [facility] 35.7 gm/dL [facility] LABORATORY Platelets 188 145 - 357 [facility] x10(3)/[facility] LABORATORY RDWSD 45.1 (H) 36.0 - [facility] 45.0 [facility] LABORATORY RDWCV 14.3 (H) 11.4 - [facility] 13.8 % [facility] LABORATORY MPV 9.4 7.6 - 12.9 [facility] LABORATORY nRBC % Auto 0.0 % [facility] LABORATORY nRBC Abs Auto 0.000 0.000 - [facility] 0.000 [facility] x10(3)/[facility] LABORATORY Specimen Anatomical Collection Method Collection Time Receive d Time (Source) Location / / Volume Laterality Blood specimen 07/07/2017 5:15 AM 017 5:34 (specimen) EST AM EST Resulting Agency Comment Spec In Lab Daphne Shahid MD HEMATOLOGY ORDERABLES Performing Organization Address City/State/[place] [address] (ABNORMAL) APTT (07/07/2017 5:15 AM EST) P athologist Signature PTT 69 (H) 25 - 35 sec [facility] LABORATORY Comment: The recommended therapeutic range for fu ll dose, unfractionated heparin at [facility] is 80 ? 114 [...] Shahid MD HEMATOLOGY ORDERABLES Performing Organization Address City/[facility]/ZIP Code Phon e Number [address] Magnesium (07/07/2017 5:15 AM EST) athologist Signature Magnesium 0.94 0.69 - 1.07 [facility] mmol/L [facility] LABORATORY Specimen Anatomical Collection Method Collection Time Receive d Time (Source) Location / / Volume Laterality Blood specimen 07/07/2017 5:15 AM 017 5:34 (specimen) EST AM EST Resulting Agency Comment Spec In Lab Daphne Shahid MD CHEMISTRY ORDERABLES Performing Organization Address City/[facility] [place] [address] (ABNORMAL) Basic Metabolic Panel (non-fasting) (07/07/2017 5:15 AM EST) athologist Signature Glucose Lvl 203 (H) 65 - 199 [facility] mg/dL [facility] LABORATORY Comment: Diabetes: >=200 mg/dL plus symp toms BUN 15 10 - 20 mg/dL [facility] LABORATORY Creatinine 1.09 0.80 - 1.50 mg/dL [facility] [...] or in patients with acute kidney failure. [email or web address] [email or web address]/DHMCnkf Specimen Anatomical Collection Method Collection Time Receive d Time (Source) Location / / Volume Laterality Blood specimen 07/07/2017 5:15 AM 017 5:34 (specimen) EST AM EST Resulting Agency Comment Spec In Lab Daphne Shahid MD CHEMISTRY ORDERABLES Performing Organization Address City/State/ZIP [place] [address] (ABNORMAL) Cardiac Enzymes (LEB/CGP) (07/07/2017 5:15 AM EST) P athologist Signature Troponin-T 2.07 (H) 0.00 - [facility] 0.00 ng/mL [facility] LABORATORY Comment: The 99th percentile [...] additional sample may be indicated. Reference: Third Weldon Definition of Myocardial Infarction. Journal of the [place] [employer] 2012;60:1581-98 CK, Total 88 0 - 200 unit/L [facility] LABORATORY Specimen Anatomical Collection Method Collection Time Receive d Time (Source) Location / / Volume Laterality Blood specimen 07/07/2017 5:15 AM 017 5:34 (specimen) EST AM EST Resulting Agency Comment Spec In Lab Daphne Shahid MD CHEMISTRY ORDERABLES Performing Organization Address City/[facility]/ZIP [facility] Phon e Number [address] POCT Glucose (07/07/2017 5:01 AM EST) athologist Signature POC Glucose 182 65 - 199 [facility]/dL [facility] LAB[facility]ORY Comment: Supplemental ranges: <140 mg/dL before meals <180 mg/dL all other times of the day Specimen Anatomical Collection Method Collection Time Receive d Time (Source) Location / / Volume Laterality Blood specimen 07/07/2017 5:01 AM 017 5:01 (specimen) EST AM EST Daphne Shahid MD POINT OF CARE TEST ORDERABLE S Performing Organization Address City/[facility]/ZIP [place] [address] POCT Glucose (07/07/2017 4:08 AM EST) athologist Signature POC Glucose 199 65 - 199 [facility] Comment: Supplemental ranges: <140 mg/dL before meals <180 mg/dL all other times of the day Specimen Anatomical Collection Method Collection Time Receive d Time (Source) Location / / Volume Laterality Blood specimen 07/07/2017 4:08 AM 017 4:08 (specimen) EST AM EST Daphne Shahid MD POINT OF CARE TEST ORDERABLE S Performing Organization Address City/[facility]/ZIP Code Phon e Number [address] POCT Glucose (07/07/2017 3:03 AM EST) athologist Signature POC Glucose 188 65 - 199 [facility]/dL [facility] LAB[facility]ORY Comment: Supplemental ranges: <140 mg/dL before meals <180 mg/dL all other times of the day Specimen Anatomical Collection Method Collection Time Receive d Time (Source) Location / / Volume Laterality Blood specimen 07/07/2017 3:03 AM 017 3:03 (specimen) EST AM EST Daphne Shahid MD POINT OF CARE TEST ORDERABLE S Performing Organization Address City/State/Z[place] [address] (ABNORMAL) POCT Glucose (07/07/2017 2:08 AM EST) athologist Signature POC Glucose 200 (H) 65 - 199 [facility]/dL [facility] Comment: Supplemental ranges: <140 mg/dL before meals <180 mg/dL all other times of the day Specimen Anatomical Collection Method Collection Time Receive d Time (Source) Location / / Volume Laterality Blood specimen 07/07/2017 2:08 AM 017 2:08 (specimen) EST AM EST Daphne Shahid MD POINT OF CARE TEST ORDERABLE S Performing Organization Address City/State/ZIP [place] [address] (ABNORMAL) POCT Glucose (07/07/2017 1:31 AM EST) athologist Signature POC Glucose 209 (H) 65 - 199 [facility]/dL [facility] Comment: Supplemental ranges: <140 mg/dL before meals <180 mg/dL all other times of the day Specimen Anatomical Collection Method Collection Time Receive d Time (Source) Location / / Volume Laterality Blood specimen 07/07/2017 1:31 AM 017 1:31 (specimen) EST AM EST Daphne Shahid MD POINT OF CARE TEST ORDERABLE S Performing Organization Address City/State/[place] [address] XR Chest PA or [...] Signature POC Glucose 161 65 - 199 [facility] mg/dL [facility] LABORATORY Comment: Supplemental ranges: <140 mg/dL before meals <180 mg/dL all other times of the day Specimen Anatomical Collection Method Collection Time Receive d Time (Source) Location / / Volume Laterality Blood specimen 07/07/2017 12:07 7 (specimen) AM EST 12:07 AM EST Daphne Shahid MD POINT OF CARE TEST ORDERABLE S Performing Organization Address City/State/[place] [address] (ABNORMAL) APTT (07/07/2017 12:00 AM EST) P athologist Signature PTT 103 (H) 25 - 35 sec [facility] LAB[facility] Comment: The recommended therapeutic range for fu ll dose, unfractionated heparin at [facility] is 80 ? 114 [...] Shahid MD HEMATOLOGY ORDERABLES Performing Organization Address City/[facility]/ZIP Code Phon e Number [address] POCT Glucose (07/06/2017 9:55 PM EST) athologist Signature POC Glucose 109 65 - 199 [facility] mg/dL [facility]ORY Comment: Supplemental ranges: <140 mg/dL before meals <180 mg/dL all other times of the day Specimen Anatomical Collection Method Collection Time Receive d Time (Source) Location / / Volume Laterality Blood specimen 07/06/2017 9:55 PM 017 9:55 (specimen) EST PM EST Daphne Shahid MD POINT OF CARE TEST ORDERABLE S Performing Organization Address City/[facility]/ZIP Code Phon e Number [address] POCT Glucose (07/06/2017 9:04 PM EST) athologist Signature POC Glucose 120 65 - 199 [facility]/dL [facility] Comment: Supplemental ranges: <140 mg/dL before meals <180 mg/dL all other times of the day Specimen Anatomical Collection Method Collection Time Receive d Time (Source) Location / / Volume Laterality Blood specimen 07/06/2017 9:04 PM 017 9:04 (specimen) EST PM EST Daphne Shahid MD POINT OF CARE TEST ORDERABLE S Performing Organization Address City/[facility]/ZIP Code Phon e Number [address] POCT Glucose (07/06/2017 7:45 PM EST) athologist Signature POC Glucose 158 65 - 199 [facility] mg/dL [facility]ORY Comment: Supplemental ranges: <140 mg/dL before meals <180 mg/dL all other times of the day Specimen Anatomical Collection Method Collection Time Receive d Time (Source) Location / / Volume Laterality Blood specimen 07/06/2017 7:45 PM 017 7:45 (specimen) EST PM EST Daphne Shahid MD POINT OF CARE TEST ORDERABLE S Performing Organization Address City/[facility]/ZIP [facility] [place] [address] Potassium (07/06/2017 7:40 PM EST) athologist [facility] Potassium 3.9 3.5 - 5.0 [facility] mmol/L [facility] LABORATORY Comment: Please note: ??Patients [...] Shahid MD CHEMISTRY ORDERABLES Performing Organization Address City/[facility] [place] [address] (ABNORMAL) Cardiac Enzymes (LEB/CGP) (07/06/2017 7:40 PM EST) athologist [facility] Troponin-T 2.27 (H) 0.00 - [place] 0.00 ng/mL [facility] LABORATORY Comment: The 99th percentile [...] additional sample may be indicated. Reference: Third Weldon Definition of Myocardial Infarction. Journal of the [place] [employer] 2012;60:1581-98 CK, Total 93 0 - 200 unit/L [facility] LABORATORY Specimen Anatomical Collection Method Collection Time Receive d Time (Source) Location / / Volume Laterality Blood specimen 07/06/2017 7:40 PM 017 7:52 (specimen) EST PM EST Resulting Agency Comment Spec In Lab Daphne Shahid MD CHEMISTRY ORDERABLES Performing Organization Address City/[facility]/ZIP [place] [address] (ABNORMAL) POCT Glucose (07/06/2017 7:13 PM EST) P athologist Signature POC Glucose 200 (H) 65 - 199 [facility] mg/dL [facility] LABORATORY Comment: Supplemental ranges: <140 mg/dL before meals <180 mg/dL all other times of the day Specimen Anatomical Collection Method Collection Time Receive d Time (Source) Location / / Volume Laterality Blood specimen 07/06/2017 7:13 PM 017 7:13 (specimen) EST PM EST Daphne Shahid MD POINT OF CARE TEST ORDERABLE S Performing Organization Address City/[facility]/ZIP [place] [address] (ABNORMAL) APTT (07/06/2017 6:15 PM EST) P athologist Signature PTT 94 (H) 25 - 35 sec [facility] LAB[facility] Comment: The recommended therapeutic range for fu ll dose, unfractionated heparin at [facility] is 80 ? 114 [...] Shahid MD HEMATOLOGY ORDERABLES Performing Organization Address City/[facility]/ZIP Code Phon e Number [address] (ABNORMAL) POCT Glucose (07/06/2017 6:03 PM EST) athologist Signature POC Glucose 236 (H) 65 - 199 [facility] mg/dL [facility] Comment: Supplemental ranges: <140 mg/dL before meals <180 mg/dL all other times of the day Specimen Anatomical Collection Method Collection Time Receive d Time (Source) Location / / Volume Laterality Blood specimen 07/06/2017 6:03 PM 017 6:03 (specimen) EST PM EST Daphne Shahid MD POINT OF CARE TEST ORDERABLE S Performing Organization Address City/[facility]/ZIP [place] [address] (ABNORMAL) POCT Glucose (07/06/2017 5:01 PM EST) P athologist Signature POC Glucose 235 (H) 65 - 199 [facility]/dL [facility] Comment: Supplemental ranges: <140 mg/dL before meals <180 mg/dL all other times of the day Specimen Anatomical Collection Method Collection Time Receive d Time (Source) Location / / Volume Laterality Blood specimen 07/06/2017 5:01 PM 017 5:01 (specimen) EST PM EST Daphne Shahid MD POINT OF CARE TEST ORDERABLE S Performing Organization Address City/State/ZIP [place] [address] (ABNORMAL) POCT Glucose (07/06/2017 4:06 PM EST) athologist Signature POC Glucose 202 (H) 65 - 199 [facility] mg/dL [facility] Comment: Supplemental ranges: <140 mg/dL before meals <180 mg/dL all other times of the day Specimen Anatomical Collection Method Collection Time Receive d Time (Source) Location / / Volume Laterality Blood specimen 07/06/2017 4:06 PM 017 4:06 (specimen) EST PM EST Daphne Shahid MD POINT OF CARE TEST ORDERABLE S Performing Organization Address City/[facility]/ZIP [facility] [place] [address] POCT Glucose (07/06/2017 2:59 PM EST) athologist Signature POC Glucose 178 65 - 199 [facility] mg/dL [facility]ORY Comment: Supplemental ranges: <140 mg/dL before meals <180 mg/dL all other times of the day Specimen Anatomical Collection Method Collection Time Receive d Time (Source) Location / / Volume Laterality Blood specimen 07/06/2017 2:59 PM 017 2:59 (specimen) EST PM EST Daphne Shahid MD POINT OF CARE TEST ORDERABLE S Performing Organization Address City/[facility] [place] [address] (ABNORMAL) Cardiac Enzymes (LEB/CGP) (07/06/2017 2:10 PM EST) athologist Signature Troponin-T 2.34 (H) 0.00 - [facility] ng/mL [facility]ORY Comment: The 99th percentile [...] additional sample may be indicated. Reference: Third Weldon Definition of Myocardial Infarction. Journal of the [place] [employer] 2012;60:1581-98 CK, Total 101 0 - 200 unit/L [facility] LABORATORY Specimen Anatomical Collection Method Collection Time Receive d Time (Source) Location / / Volume Laterality Blood specimen 07/06/2017 2:10 PM 017 2:26 (specimen) EST PM EST Resulting Agency Comment Spec In Lab Daphne Shahid MD CHEMISTRY ORDERABLES Performing Organization Address City/[facility]/ZIP Code Phon e Number [address] POCT Glucose (07/06/2017 2:08 PM EST) athologist Signature POC Glucose 192 65 - 199 [facility] mg/dL [facility] Comment: Supplemental ranges: <140 mg/dL before meals <180 mg/dL all other times of the day Specimen Anatomical Collection Method Collection Time Receive d Time (Source) Location / / Volume Laterality Blood specimen 07/06/2017 2:08 PM 017 2:08 (specimen) EST PM EST Daphne Shahid MD POINT OF CARE TEST ORDERABLE S Performing Organization Address City/[facility]/ZIP [facility] Phon e Number [address] POCT Glucose (07/06/2017 1:04 PM EST) athologist Signature POC Glucose 162 65 - 199 [facility] mg/dL [facility] Comment: Supplemental ranges: <140 mg/dL before meals <180 mg/dL all other times of the day Specimen Anatomical Collection Method Collection Time Receive d Time (Source) Location / / Volume Laterality Blood specimen 07/06/2017 1:04 PM 017 1:04 (specimen) EST PM EST Daphne Shahid MD POINT OF CARE TEST ORDERABLE S Performing Organization Address City/State/ZIP Code Phon e Number [address] POCT Glucose (07/06/2017 12:05 PM EST) P athologist Signature POC Glucose 196 65 - 199 [facility] mg/dL [facility] LABORATORY Comment: Supplemental ranges: <140 mg/dL before meals <180 mg/dL all other times of the day Specimen Anatomical Collection Method Collection Time Receive d Time (Source) Location / / Volume Laterality Blood specimen 07/06/2017 12:05 7 (specimen) PM EST 12:05 PM EST Daphne Shahid MD POINT OF CARE TEST ORDERABLE S Performing Organization Address City/[facility]/ZIP [place] [address] EKG 12 Lead (07/06/2017 12:00 PM EST) Component Value Ref Range Test Analysis Performed Pathologis t Method Time At Signature Ventricular rate 91 BPM MUSE SYSTEM Atrial Rate 91 BPM MUSE SYSTEM P-R Interval 140 ms MUSE SYSTEM QRS Duration 94 ms MUSE SYSTEM Q-T Interval 394 ms MUSE SYSTEM QTC Calculated 484 ms MUSE SYSTEM (Bezet) Calculated P Mclaughlin 36 degrees MUSE SYSTEM Calculated R Mclaughlin -19 degrees MUSE SYSTEM Calculated T Mclaughlin 104 degrees MUSE SYSTEM INTERPRETATION Normal sinus rhythm MUSE SYSTEM 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) ST & T wave abnormality, consider lateral ischemia Abnormal ECG When compared with ECG of 05-JUL-2017 20:39, No significant change was found Confirmed by MD Luci, Taurus Braun ([id number]) on 07/06/2017 5:07:33 PM Specimen Anatomical Collection Method Collection Time Receive d Time (Source) Location / / Volume Laterality 07/06/2017 12:00 07/06/2017 5:07 PM EST PM EST Authorizing Provider Result Mikaela Shahid MD ECG ORDERABLES Performing Organization Address City/State/ZIP Code Phon e Number MUSE SYSTEM ABORH Recheck Status (07/06/2017 12:00 PM EST) [facility] Method Time Signature ABORH Type Completed [facility] LABORATORY Specimen Anatomical Collection Method Collection Time Receive d Time (Source) Location / / Volume Laterality Blood specimen 07/06/2017 12:00 7 (specimen) PM EST 12:24 PM EST Resulting Agency Comment Spec In Lab Daphne Shahid MD BLOOD BANK ORDERABLES Performing Organization Address City/State/[place] [address] Antibody screen (07/06/2017 12:00 PM EST) [facility] Method Alverda Signature Ab Screen Negative [facility] LABORATORY Expires at 07/09/2017 [facility] [id number] on: [facility] LABORATORY Specimen Anatomical Collection Method Collection Time Receive d Time (Source) Location / / Volume Laterality Blood specimen 07/06/2017 12:00 7 (specimen) PM EST 12:24 PM EST Resulting Agency Comment Spec In Lab Daphne Shahid MD BLOOD BANK ORDERABLES Performing Organization Address City/State/ZIP [place] [address] ABO/Rh Typing (07/06/2017 12:00 PM EST) P athologist Signature ABORh Type O Pos [facility] LABORATORY Specimen Anatomical Collection Method Collection Time Receive d Time (Source) Location / / Volume Laterality Blood specimen 07/06/2017 12:00 7 (specimen) PM EST 12:24 PM EST Resulting Agency Comment Spec In Lab Daphne Shahid MD BLOOD BANK ORDERABLES Performing Organization Address City/[facility]/ZIP [place] [address] Prothrombin Time (07/06/2017 11:24 AM EST) P athologist Signature PT 13.3 11.8 - 14.0 [facility] LABORATORY INR 1.0 0.9 - 1.1 [facility] [...] Shahid MD HEMATOLOGY ORDERABLES Performing Organization Address City/[facility]/ZIP [place] [address] (ABNORMAL) APTT (07/06/2017 11:24 AM EST) P athologist Signature PTT 52 (H) 25 - 35 sec [facility] LABORATORY Comment: The recommended therapeutic range for fu ll dose, unfractionated heparin at [facility] is 80 ? 114 [...] Shahid MD HEMATOLOGY ORDERABLES Performing Organization Address City/[facility]/ZIP [place] [address] POCT Glucose (07/06/2017 11:02 AM EST) P athologist Signature POC Glucose 187 65 - 199 [facility] mg/dL [facility] LABORATORY Comment: Supplemental ranges: <140 mg/dL before meals <180 mg/dL all other times of the day Specimen Anatomical Collection Method Collection Time Receive d Time (Source) Location / / Volume Laterality Blood specimen 07/06/2017 11:02 7 (specimen) AM EST 11:02 AM EST Daphne Shahid MD POINT OF CARE TEST ORDERABLE S Performing Organization Address City/State/ZIP [place] [address] POCT Glucose (07/06/2017 10:18 AM EST) athologist Signature POC Glucose 193 65 - 199 [place] mg/dL [facility] LABORATORY Comment: Supplemental ranges: <140 mg/dL before meals <180 mg/dL all other times of the day Specimen Anatomical Collection Method Collection Time Receive d Time (Source) Location / / Volume Laterality Blood specimen 07/06/2017 10:18 7 (specimen) AM EST 10:18 AM EST Daphne Shahid MD POINT OF CARE TEST ORDERABLE S Performing Organization Address City/State/ZIP Code Phon e Number [address] POCT Glucose (07/06/2017 9:25 AM EST) athologist Signature POC Glucose 182 65 - 199 [place] mg/dL [facility] LABORATORY Comment: Supplemental ranges: <140 mg/dL before meals <180 mg/dL all other times of the day Specimen Anatomical Collection Method Collection Time Receive d Time (Source) Location / / Volume Laterality Blood specimen 07/06/2017 9:25 AM 017 9:25 (specimen) EST AM EST Daphne Shahid MD POINT OF CARE TEST ORDERABLE S Performing Organization Address City/State/ZIP [place] [address] (ABNORMAL) Cardiac Enzymes (LEB/CGP) (07/06/2017 8:10 AM EST) athologist Signature Troponin-T 2.26 (H) 0.00 - [place] 0.00 ng/mL [facility] LABORATORY Comment: The 99th percentile [...] additional sample may be indicated. Reference: Third Weldon Definition of Myocardial Infarction. Journal of the [place] [employer] 2012;60:1581-98 CK, Total 124 0 - 200 unit/L [facility] LABORATORY Specimen Anatomical Collection Method Collection Time Receive d Time (Source) Location / / Volume Laterality Blood specimen 07/06/2017 8:10 AM 017 8:23 (specimen) EST AM EST Resulting Agency Comment Spec In Lab Daphne Shahid MD CHEMISTRY ORDERABLES Performing Organization Address City/[facility]/ZIP Code Phon e Number [address] Magnesium (07/06/2017 8:10 AM EST) P athologist Signature Magnesium 0.84 0.69 - 1.07 [facility] mmol/L [facility] LABORATORY Specimen Anatomical Collection Method Collection Time Receive d Time (Source) Location / / Volume Laterality Blood specimen 07/06/2017 8:10 AM 017 8:21 (specimen) EST AM EST Resulting Agency Comment Spec In Lab Daphne Shahid MD CHEMISTRY ORDERABLES Performing Organization Address City/[facility]/ZIP [place] [address] (ABNORMAL) Basic Metabolic Panel (non-fasting) (07/06/2017 8:10 AM EST) athologist Signature Glucose Lvl 199 65 - 199 [facility] mg/dL [facility] LABORATORY Comment: Diabetes: >=200 mg/dL plus symp toms BUN 16 10 - 20 mg/dL [facility] LABORATORY Creatinine 1.04 0.80 - 1.50 mg/dL [facility] [...] or in patients with acute kidney failure. [email or web address] [email or web address] Specimen Anatomical Collection Method Collection Time Receive d Time (Source) Location / / Volume Laterality Blood specimen 07/06/2017 8:10 AM 017 8:21 (specimen) EST AM EST Resulting Agency Comment Spec In Lab Daphne Shahid MD CHEMISTRY ORDERABLES Performing Organization Address City/State/[place] [address] POCT Glucose (07/06/2017 7:34 AM EST) P athologist Signature POC Glucose 198 65 - 199 [facility] mg/dL [facility] LABORATORY Comment: Supplemental ranges: <140 mg/dL before meals <180 mg/dL all other times of the day Specimen Anatomical Collection Method Collection Time Receive d Time (Source) Location / / Volume Laterality Blood specimen 07/06/2017 7:34 AM 017 7:34 (specimen) EST AM EST Daphne Shahid MD POINT OF CARE TEST ORDERABLE S Performing Organization Address City/State/ZIP Code Phon e Number [address] POCT Glucose (07/06/2017 7:03 AM EST) P athologist Signature POC Glucose 181 65 - 199 [facility] mg/dL [facility] LABORATORY Comment: Supplemental ranges: <140 mg/dL before meals <180 mg/dL all other times of the day Specimen Anatomical Collection Method Collection Time Receive d Time (Source) Location / / Volume Laterality Blood specimen 07/06/2017 7:03 AM 017 7:03 (specimen) EST AM EST Daphne Shahid MD POINT OF CARE TEST ORDERABLE S Performing Organization Address City/State/ZIP [place] [address] XR Chest PA or [...] Signature POC Glucose 172 65 - 199 [facility]/dL [facility] LABORATORY Comment: Supplemental ranges: <140 mg/dL before meals <180 mg/dL all other times of the day Specimen Anatomical Collection Method Collection Time Receive d Time (Source) Location / / Volume Laterality Blood specimen 07/06/2017 6:21 AM 017 6:21 (specimen) EST AM EST Daphne Shahid MD POINT OF CARE TEST ORDERABLE S Performing Organization Address City/[facility]/ZIP [place] [address] POCT Glucose (07/06/2017 5:08 AM EST) athologist Signature POC Glucose 154 65 - 199 [facility] LABORATORY Comment: Supplemental ranges: <140 mg/dL before meals <180 mg/dL all other times of the day Specimen Anatomical Collection Method Collection Time Receive d Time (Source) Location / / Volume Laterality Blood specimen 07/06/2017 5:08 AM 017 5:08 (specimen) EST AM EST Daphne Shahid MD POINT OF CARE TEST ORDERABLE S Performing Organization Address City/State/ZIP [place] [address] POCT Glucose (07/06/2017 4:05 AM EST) athologist Signature POC Glucose 142 65 - 199 [facility]/dL [facility] LABORATORY Comment: Supplemental ranges: <140 mg/dL before meals <180 mg/dL all other times of the day Specimen Anatomical Collection Method Collection Time Receive d Time (Source) Location / / Volume Laterality Blood specimen 07/06/2017 4:05 AM 017 4:05 (specimen) EST AM EST Daphne Shahid MD POINT OF CARE TEST ORDERABLE S Performing Organization Address City/[facility]/ZIP Code Phon e Number [address] POCT Glucose (07/06/2017 3:00 AM EST) athologist Signature POC Glucose 116 65 - 199 [facility] LABORATORY Comment: Supplemental ranges: <140 mg/dL before meals <180 mg/dL all other times of the day Specimen Anatomical Collection Method Collection Time Receive d Time (Source) Location / / Volume Laterality Blood specimen 07/06/2017 3:00 AM 017 3:00 (specimen) EST AM EST Daphne Shahid MD POINT OF CARE TEST ORDERABLE S Performing Organization Address City/[facility]/ZIP [place] [address] Potassium (07/06/2017 2:20 AM EST) athologist Signature Potassium 3.9 3.5 - 5.0 [facility] mmol/L [facility] LABORATORY Comment: Please note: ??Patients [...] Shahid MD CHEMISTRY ORDERABLES Performing Organization Address City/[facility]/ZIP Code Phon e Number [place] [id number]OS[address] Differential, Automated (07/06/2017 2:20 AM EST) P athologist Signature Neutrophils % 72.9 % [facility] LABORATORY Neutr Abs (ANC) 5.53 1.70 - [facility] 6.10 [facility] x10(3)/[facility] LABORATORY Lymphocytes % 16.4 % [facility] LABORATORY Lymphocytes Abs 1.2 0.9 - 3.2 [facility] x10(3)/[facility] LABORATORY Monocytes % 9.4 % [facility] Monocyte Abs 0.7 0.3 - 0.9 [facility] x10(3)/[facility] LABORATORY Eosinophils % 0.5 % [facility] LABORATORY Eosinophils Abs 0.0 0.0 - 0.4 [facility] x10(3)/[facility] LABORATORY Basophils % 0.4 % [facility] LABORATORY Basophils Abs 0.0 0.0 - 0.1 [facility] x10(3)/[facility] LABORATORY Immature Gran % 0.40 % [...] Melisa Gran Abs 0.03 0.00 - 0.04 x10(3)/[facility] MAR Y [facility] LABORATORY Specimen Anatomical Collection Method Collection Time Receive d Time (Source) Location / / Volume Laterality Blood specimen 07/06/2017 2:20 AM 017 2:33 (specimen) EST AM EST Resulting Agency Comment Spec In Lab Daphne Shahid MD HEMATOLOGY ORDERABLES Performing Organization Address City/State/ZIP Code Phon e Number [place] [phone]OS[address] LAB[address]ORY Drive (ABNORMAL) Hemogram (07/06/2017 2:20 AM EST) Analysis Performed At Patho logist Time Signature WBC 7.6 4.0 - 9.5 [facility] x10(3)/[facility] LABORATORY RBC 4.52 (L) 4.58 - [facility] 5.54 [facility] x10(6)/[facility] LABORATORY Hemoglobin 13.4 (L) 13.7 - [facility] 16.5 gm/dL [facility] LABORATORY Hematocrit 39.7 (L) 40.5 - [facility] 48.5 % [facility] LABORATORY MCV 87.8 82.9 - [facility] 93.1 [facility] LABORATORY MCH 29.6 27.5 - [facility] 32.1 pg [facility] LABORATORY MCHC 33.8 32.0 - [facility] 35.7 gm/dL [facility] LABORATORY Platelets 189 145 - 357 [facility] x10(3)/[facility] LABORATORY RDWSD 45.6 (H) 36.0 - [facility] 45.0 [facility] LABORATORY RDWCV 14.3 (H) 11.4 - [facility] 13.8 % [facility] LABORATORY MPV 9.1 7.6 - 12.9 [facility] LABORATORY nRBC % Auto 0.0 % [facility] LABORATORY nRBC Abs Auto 0.000 0.000 - [facility] 0.000 [facility] x10(3)/[facility] LABORATORY Specimen Anatomical Collection Method Collection Time Receive d Time (Source) Location / / Volume Laterality Blood specimen 07/06/2017 2:20 AM 017 2:33 (specimen) EST AM EST Resulting Agency Comment Spec In Lab Daphne Shahid MD HEMATOLOGY ORDERABLES Performing Organization Address City/State/[place] [address] (ABNORMAL) APTT (07/06/2017 2:20 AM EST) P athologist Signature PTT 52 (H) 25 - 35 sec [facility] LABORATORY Comment: The recommended therapeutic range for fu ll dose, unfractionated heparin at [facility] is 80 ? 114 [...] Organization Address City/State/ZIP Code Phon e Number [address] POCT Glucose (07/06/2017 2:20 AM EST) athologist Signature POC Glucose 115 65 - 199 [facility] mg/dL [facility] LABORATORY Comment: Supplemental ranges: <140 mg/dL before meals <180 mg/dL all other times of the day Specimen Anatomical Collection Method Collection Time Receive d Time (Source) Location / / Volume Laterality Blood specimen 07/06/2017 2:20 AM 017 2:20 (specimen) EST AM EST Daphne Shahid MD POINT OF CARE TEST ORDERABLE S Performing Organization Address City/[facility]/ZIP [place] [address] (ABNORMAL) Cardiac Enzymes (LEB/CGP) (07/06/2017 2:20 AM EST) athologist [facility] Troponin-T 2.13 (H) 0.00 - [place] 0.00 ng/mL [facility] LABORATORY Comment: The 99th percentile [...] additional sample may be indicated. Reference: Third Weldon Definition of Myocardial Infarction. Journal of the [place] [employer] 2012;60:1581-98 CK, Total 129 0 - 200 unit/L [facility] LABORATORY Specimen Anatomical Collection Method Collection Time Receive d Time (Source) Location / / Volume Laterality Blood specimen 07/06/2017 2:20 AM 017 2:33 (specimen) EST AM EST Resulting Agency Comment Spec In Lab Daphne Shahid MD CHEMISTRY ORDERABLES Performing Organization Address City/State/ZIP Code Phon e Number [place] [phone]OS[address] LAB[address]ORY Drive (ABNORMAL) Hemoglobin A1c (07/06/2017 [...] Mellitus, Diabetes Care 2013; 36: Suppl. 1, S67-34 Est Avg Gluc See note mg/dL [place] [...] Additional resources are available on [facility] ADA website. Macario HAMMOND, Ruthann J, Deysi R, et al. ??Tr anslating the A1C assay into estimated average glucose values. ??Diabetes Care 2008:31(8):5664-8390. Specimen Anatomical Collection Method Collection Time Receive d Time (Source) Location / / Volume Laterality Blood specimen 07/06/2017 2:20 AM 017 2:34 (specimen) EST AM EST Resulting Agency Comment Spec In Lab Daphne Shahid MD CHEMISTRY ORDERABLES Performing Organization Address City/State/ZIP [place] [address] (ABNORMAL) Lipid Panel (07/06/2017 2:20 AM EST) [facility] Method Time Signature Chol, Total 150 <=239 [place] mg/dL [facility] LABORATORY Triglycerides 129 <=199 [place] mg/dL [facility] LABORATORY HDL 32 (L) >=40 [place] mg/dL [facility] LABORATORY LDL Cholesterol 92 <=190 [place] mg/dL [facility] LABORATORY Chol/HDL Ratio 4.7 ratio [facility] LABORATORY Lipid See Note [place] Interpretation [facility] LABORATORY Comment: Lipid management should be guided by a p atient? s ASCVD risk, goals and preferences. ACC/AHA Guidelines recommend high intens ity statin if clinical ASCVD or LDL greater than or equal to 190 mg/dL. [email or web address] Adults aged 40-75 with LDL 70-189 mg/dL should have their 10 year ASCVD risk estimated with the ACC/AHA ASCVD risk es timator http://tools.acc.org/UVTLR-Cuny-Wauxvqig r/ Statin should be discussed if risk [...] Shahid MD CHEMISTRY ORDERABLES Performing Organization Address City/[facility]/ZIP [facility] Phon e Number [address] POCT Glucose (07/06/2017 1:09 AM EST) athologist Signature POC Glucose 121 65 - 199 [facility]/dL [facility] LABORATORY Comment: Supplemental ranges: <140 mg/dL before meals <180 mg/dL all other times of the day Specimen Anatomical Collection Method Collection Time Receive d Time (Source) Location / / Volume Laterality Blood specimen 07/06/2017 1:09 AM 017 1:09 (specimen) EST AM EST Daphne Shahid MD POINT OF CARE TEST ORDERABLE S Performing Organization Address City/[facility]/ZIP [facility] Phon e Number [address] POCT Glucose (07/06/2017 12:06 AM EST) P athologist Signature POC Glucose 147 65 - 199 [facility] mg/dL [facility] LABORATORY Comment: Supplemental ranges: <140 mg/dL before meals <180 mg/dL all other times of the day Specimen Anatomical Collection Method Collection Time Receive d Time (Source) Location / / Volume Laterality Blood specimen 07/06/2017 12:06 7 (specimen) AM EST 12:06 AM EST Daphne Shahid MD POINT OF CARE TEST ORDERABLE S Performing Organization Address City/State/ZIP [place] [address] (ABNORMAL) POCT Glucose (07/05/2017 10:56 PM EST) athologist Signature POC Glucose 200 (H) 65 - 199 [place] mg/dL [facility] LABORATORY Comment: Supplemental ranges: <140 mg/dL before meals <180 mg/dL all other times of the day Specimen Anatomical Collection Method Collection Time Receive d Time (Source) Location / / Volume Laterality Blood specimen 07/05/2017 10:56 7 (specimen) PM EST 10:56 PM EST Daphne Shahid MD POINT OF CARE TEST ORDERABLE S Performing Organization Address City/State/ZIP [place] [address] (ABNORMAL) POCT Glucose (07/05/2017 10:05 PM EST) athologist Signature POC Glucose 225 (H) 65 - 199 [place] mg/dL [facility] LABORATORY Comment: Supplemental ranges: <140 mg/dL before meals <180 mg/dL all other times of the day Specimen Anatomical Collection Method Collection Time Receive d Time (Source) Location / / Volume Laterality Blood specimen 07/05/2017 10:05 7 (specimen) PM EST 10:05 PM EST Daphne Shahid MD POINT OF CARE TEST ORDERABLE S Performing Organization Address City/State/ZIP [place] [address] (ABNORMAL) POCT Glucose (07/05/2017 9:02 PM EST) athologist Signature POC Glucose 301 (H) 65 - 199 [place] mg/dL [facility] LABORATORY Comment: Supplemental ranges: <140 mg/dL before meals <180 mg/dL all other times of the day Specimen Anatomical Collection Method Collection Time Receive d Time (Source) Location / / Volume Laterality Blood specimen 07/05/2017 9:02 PM 017 9:02 (specimen) EST PM EST Daphne Shahid MD POINT OF CARE TEST ORDERABLE S Performing Organization Address City/State/ZIP Code Phon e Number [place] [phone]OS[address] LAB[address] XR Chest PA or [...] 474 ms MUSE SYSTEM (Bezet) Calculated P Mclaughlin 50 degrees MUSE SYSTEM Calculated R Mclaughlin -28 degrees MUSE SYSTEM Calculated T Mclaughlin 90 degrees MUSE SYSTEM INTERPRETATION Sinus tachycardia [...] (ABNORMAL) Differential, Automated (07/05/2017 8:20 PM EST) [facility] gist Method Time Signature Neutrophils % 88.4 % [facility] LABORATORY Neutr Abs (ANC) 9.08 (H) 1.70 - [facility] 6.10 [facility] x10(3)/[facility] L LABORATORY Lymphocytes % 7.0 % [facility] LABORATORY Lymphocytes Abs 0.7 (L) 0.9 - 3.2 [facility] x10(3)/[facility] LABORATORY Monocytes % 3.7 % [facility] LABORATORY Monocyte Abs 0.4 0.3 - 0.9 [facility] x10(3)/[facility] LABORATORY Eosinophils % 0.1 % [facility] LABORATORY Eosinophils Abs 0.0 0.0 - 0.4 [facility] x10(3)/[facility] LABORATORY Basophils % 0.2 % [facility] LABORATORY Basophils Abs 0.0 0.0 - 0.1 [facility] x10(3)/[facility] LABORATORY Immature Gran % 0.60 [...] Organization Address City/State/[place] [address] (ABNORMAL) Hemogram (07/05/2017 8:20 PM EST) Analysis Performed At Patho logist Time Signature WBC 10.3 (H) 4.0 - 9.5 [facility] x10(3)/[facility] LABORATORY RBC 4.64 4.58 - [facility] SU 5.54 [facility] x10(6)/[facility] LABORATORY Hemoglobin 14.1 13.7 - [facility] 16.5 gm/dL [facility] LABORATORY Hematocrit 40.8 40.5 - [facility] 48.5 % [facility] LABORATORY MCV 87.9 82.9 - [facility] 93.1 [facility] LABORATORY MCH 30.4 27.5 - [facility] SU 32.1 pg [facility] LABORATORY MCHC 34.6 32.0 - [facility] 35.7 gm/dL [facility] LABORATORY Platelets 204 145 - 357 [facility] x10(3)/[facility] LABORATORY RDWSD 46.1 (H) 36.0 - [facility] SU 45.0 [facility] LABORATORY RDWCV 14.5 (H) 11.4 - [facility] SU 13.8 % [facility] LABORATORY MPV 9.7 7.6 - 12.9 [facility] LABORATORY nRBC % Auto 0.0 % [facility] LABORATORY nRBC Abs Auto 0.000 0.000 - [place] 0.000 [facility] x10(3)/[facility] LABORATORY Specimen Anatomical Collection Method Collection Time Receive d Time (Source) Location / / Volume Laterality Blood specimen 07/05/2017 8:20 PM 017 8:27 (specimen) EST PM EST Resulting Agency Comment Spec In Lab Daphne Shahid MD HEMATOLOGY ORDERABLES Performing Organization Address City/[facility]/ZIP Code Phon e Number [address] APTT (07/05/2017 8:20 PM EST) athologist Signature PTT 32 25 - 35 sec [facility] LABORATORY Comment: The recommended therapeutic range for fu ll dose, unfractionated heparin at [facility] is 80 ? 114 [...] MD HEMATOLOGY ORDERABLES Performing Organization Address [facility] [place] [address] (ABNORMAL) Cardiac Enzymes (LEB/CGP) (07/05/2017 8:20 PM EST) athologist Signature Troponin-T 2.11 (H) 0.00 - [facility] 0.00 ng/mL [facility] [facility] Comment: The 99th percentile [...] additional sample may be indicated. Reference: Third Weldon Definition of Myocardial Infarction. Journal of the [place] [employer] 2012;60:1581-98 CK, Total 149 0 - 200 unit/L [facility] Specimen Anatomical Collection Method Collection Time Receive d Time (Source) Location / / Volume Laterality Blood specimen 07/05/2017 8:20 PM 017 8:27 (specimen) EST PM EST Resulting Agency Comment Spec In Lab Daphne Shahid MD CHEMISTRY ORDERABLES Performing Organization Address City/[facility]/ZIP [place] [address] (ABNORMAL) Magnesium (07/05/2017 8:20 PM EST) P athologist Signature Magnesium 0.68 (L) 0.69 - 1.07 [facility] mmol/L [facility] Specimen Anatomical Collection Method Collection Time Receive d Time (Source) Location / / Volume Laterality Blood specimen 07/05/2017 8:20 PM 017 8:27 (specimen) EST PM EST Resulting Agency Comment Spec In Lab Daphne Shahid MD CHEMISTRY ORDERABLES Performing Organization Address City/State/ZIP [facility] [place] [address] (ABNORMAL) Basic Metabolic Panel (non-fasting) (07/05/2017 8:20 PM EST) P athologist Signature Glucose Lvl 321 (H) 65 - 199 [facility] mg/dL [facility] Comment: Diabetes: >=200 mg/dL plus symp toms BUN 20 10 - 20 mg/dL [facility] Creatinine 1.12 0.80 - 1.50 mg/dL [facility] [...] or in patients with acute kidney failure. http://NewHive/DHnkdep http://NewHive/DHMCnkf Specimen Anatomical Collection Method Collection Time Receive d Time (Source) Location / / Volume Laterality Blood specimen 07/05/2017 8:20 PM 017 8:27 (specimen) EST PM EST Resulting Agency Comment Spec In Lab Daphne Shahid MD CHEMISTRY ORDERABLES Performing Organization Address City/State/ZIP [place] [address] (ABNORMAL) POCT Glucose (07/05/2017 7:32 PM EST) P athologist Signature POC Glucose 296 (H) 65 - 199 [facility] mg/dL [facility] Comment: Supplemental ranges: <140 mg/dL before meals <180 mg/dL all other times of the day Specimen Anatomical Collection Method Collection Time Receive d Time (Source) Location / / Volume Laterality Blood specimen 07/05/2017 7:32 PM 017 7:32 (specimen) EST PM EST Daphne Shahid MD POINT OF CARE TEST ORDERABLE S Performing Organization Address City/State/ZIP [place] [address] CARDIAC CATHETERIZATION (07/05/2017 6:47 PM EST) Specimen (Source) Anatomical Location Collection Method / Collectio n Time Received Time / Laterality Volume Narrative CARDIOMAC SYSTEM - 07/05/2017 7:27 PM ES T [facility] ? Cardiac Cathete rization/Intervention Report ? Patient Name: Natalya, Gregory ? Procedure Date: 07/05/2017 ? A #: [id number] ? Primary Physician: Jet Mckenna ? Case #: [id number] ? File Name: [id number] ? Catheterization Order Number: [id number] ? [facility] ? Final Report [place], [place] ? Patient Name: ? Gregory Natalya ?ID#: ?[id number] ? : ?1945 ? Procedure Date: ? [...] presented with: non -STEMI (w/i 7 days). Welsh ?Cardiovascular Society angina c lass was IV. 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 ? Jet Mckenna M.D. ? Electronically Signed by: Jet bunch M.D. ? Report Finalized: 07/05/2017 ??19:23 ? Report Last Ammended: 10/26/2017 ??10:29 ? Procedure Note Jet Mckenna MD - 10/26/2017Formatt ing of this note might be different from the original. [facility] Cardiac Catheterization/Intervention Re port Patient Name: Natalya Gregory Procedure Date: 07/05/2017 A #: [id number] Primary Physician: Jet Mckenna Case #: [id number] File Name: [id number] Catheterization Order Number: [id number] [facility] Final Report [place], [place] Patient Name: Gregory Hoang ID#: [id number] : 1945 Procedure Date: July 05, [...] presented with: non-STEMI ( w/i 7 days). [place] [employer] angina class was IV. No [...] site angiograph y and IABP insertion in engineering lab technician. Jet Mckenna M.D. Electronically Signed [...] E ? (Age): 1945(72y) Med Rec#: ? [id number] ?Sex: ?M ? Site Loc: ? [facility] ?Ht / Wt: ??173(cm)/86(kg) Pt. Loc: ?CCU ? BSA: ?2 Study Date: ?? 07/05/2017 ?Pt. Type: Inpatient Tape: ? Referring: Daphne Shahid ([id number]) Referring: MANDA ALCANTAR Reading: Blade Preston ([id number]) Ticket Taker: Dayami Paula BA, [facility] Diagnosis: [...] E-wave Vmax ?0.8 ?m/sec ? MV deceleration tuac100 ?msec ? MV A-wave Vmax ?0.8 ?m/sec [...] ? Mid-Inferior ?Akinetic ? Mid-Inferoseptal ?Hypokinetic ? [place]-Septal ? Akinetic ? [place]-Anterior ? Hypokinetic ? [place]-Lateral ?Hypokinetic ? [place]-Inferior ? Akinetic ? [place]-Tip ?Akinetic ? This report has been electronically sign ed by: _ Blade Preston MD ? 07/06/2017 08 :53:15 Images reviewed and interpretation verif ied [facility] Cardiac Ultrasound Laboratory Procedure Note Blade Preston MD - 07/06/2017Formatt ing of this note might be different from the original. Procedure: Transthoracic Echocardiogram Patient: NATALYA MCBRIDE(Age): [birth year]72y) Med Rec#: [id number] Sex: M Site Loc: [facility] Ht / Wt: 173(cm)/86(kg) Pt. Loc: [facility] BSA: 2 Study Date: 07/05/2017 Pt. Type: Inpatie nt Tape: Referring: Daphne Shahid ([id number]) Referring: MANDA ALCANTAR Reading: Blade Preston ([id number]) Ticket Taker: Dayami Paula BA, [facility] Diagnosis: [...] MV E-wave Vmax 0.8 m/sec MV deceleration qtew020 msec MV A-wave Vmax 0.8 m/sec MV [...] Hypokinetic Mid-Posterolateral Hypokinetic Mid-Inferior Akinetic Mid-Inferoseptal Hypokinetic [place]-Septal Akinetic [place]-Anterior Hypokinetic [place]-Lateral Hypokinetic [place]-Inferior Akinetic [place]-Tip Akinetic This report has been electronically sign ed by: _ Blade Preston MD 07/06/2017 08:53:15 Images reviewed and interpretation [facility] Cardiac Ultrasound Laboratory Daphne Shahid MD ECHO ORDERABLES Performing Organization Address City/State/ZIP Code Phon e Number [facility] Differential, Automated (07/05/2017 4:55 PM EST) P athologist Signature Neutrophils % 77.0 % [facility]ORY Neutr Abs (ANC) 5.26 1.70 - [facility] 6.10 [facility] x10(3)/[facility] LABORATORY Lymphocytes % 13.3 % [facility] LABORATORY Lymphocytes Abs 0.9 0.9 - 3.2 [facility] x10(3)/[facility] LABORATORY Monocytes % 8.2 % [facility] LABORATORY Monocyte Abs 0.6 0.3 - 0.9 [facility] x10(3)/[facility] LABORATORY Eosinophils % 0.7 % [facility] LABORATORY Eosinophils Abs 0.0 0.0 - 0.4 [facility] x10(3)/[facility] LABORATORY Basophils % 0.4 % [facility] LABORATORY Basophils Abs 0.0 0.0 - 0.1 [facility] x10(3)/[facility] LABORATORY Immature Gran % 0.40 % [facility] Comment: Immature granulocytes(IG's)percentage an d absolute count will include metamyelocytes, myelocytes, and promyelo cytes. Blood smears from CBCs yielding IG's will be scanned manually for concor dance. If this scan disagrees with the automated IG or if promyelocytes are not ed, a manual differential will be performed. Emlisa Gran Abs 0.03 0.00 - 0.04 x10(3)/[facility] Y [facility] LABORATORY Specimen Anatomical Collection Method Collection Time Receive d Time (Source) Location / / Volume Laterality Blood specimen 07/05/2017 4:55 PM 017 5:24 (specimen) EST PM EST Resulting Agency Comment Spec In Lab Daphne Shahid MD HEMATOLOGY ORDERABLES Performing Organization Address City/State/ZIP [place] [address] (ABNORMAL) Hemogram (07/05/2017 4:55 PM EST) Analysis Performed At Patho logist Time Signature WBC 6.8 4.0 - 9.5 [facility] x[facility](3[facility] LABORATORY RBC 4.67 4.58 - [place] 5.54 [facility] x10(6)/[facility] LABORATORY Hemoglobin 14.0 13.7 - [facility] 16.[facility] gm/dL [facility] Hematocrit 41.0 40.5 - [facility] 48.5 % [facility] MCV 87.8 82.9 - [facility] 93.1 [facility] LABORATORY MCH 30.0 27.5 - [place] 32.1 pg [facility] LABORATORY MCHC 34.1 32.0 - [facility] 35.7 gm/dL [facility] LAB[facility] Platelets 197 145 - 357 [facility] x10(3)/[facility] LABORATORY RDWSD 46.4 (H) 36.0 - [facility] SU 45.0 [facility] LABORATORY RDWCV 14.5 (H) 11.4 - [facility] SU 13.8 % [facility] LABORATORY MPV 9.7 7.6 - 12.9 [facility] nRBC % Auto 0.0 % [facility] LABORATORY nRBC Abs Auto 0.000 0.000 - [place] 0.000 [facility] x10(3)/[facility] LABORATORY Specimen Anatomical Collection Method Collection Time Receive d Time (Source) Location / / Volume Laterality Blood specimen 07/05/2017 4:55 PM 017 5:24 (specimen) EST PM EST Resulting Agency Comment Spec In Lab Daphne Shahid MD HEMATOLOGY ORDERABLES Performing Organization Address City/State/[place] [address] (ABNORMAL) Cardiac Enzymes (LEB/CGP) (07/05/2017 4:55 PM EST) P athologist Signature Troponin-T 1.69 (H) 0.00 - [facility] 0.[facility] ng/mL [facility] Comment: The 99th percentile [...] additional sample may be indicated. Reference: Third Weldon Definition of Myocardial Infarction. Journal of the [place] [employer] 2012;60:1581-98 CK, Total 191 0 - 200 unit/L [facility] LAB[facility]ORY Specimen Anatomical Collection Method Collection Time Receive d Time (Source) Location / / Volume Laterality Blood specimen 07/05/2017 4:55 PM 017 5:56 (specimen) EST PM EST Resulting Agency Comment Spec In Lab Daphne Shahid MD CHEMISTRY ORDERABLES Performing Organization Address City/[facility]/ZIP [place] [address] (ABNORMAL) pro-Brain Natriuretic Peptide (07/05/2017 4:55 PM EST) P athologist Signature ProBNP 1,598 (H) <=125 [facility] pg/mL [facility] LABORATORY Specimen Anatomical Collection Method Collection Time Receive d Time (Source) Location / / Volume Laterality Blood specimen 07/05/2017 4:55 PM 017 5:24 (specimen) EST PM EST Resulting Agency Comment Spec In Lab Daphne Shahid MD CHEMISTRY ORDERABLES Performing Organization Address City/[facility]/ZIP [place] [address] Magnesium (07/05/2017 4:55 PM EST) athologist Signature Magnesium 0.78 0.69 - 1.07 [facility] mmol/L [facility] LABORATORY Specimen Anatomical Collection Method Collection Time Receive d Time (Source) Location / / Volume Laterality Blood specimen 07/05/2017 4:55 PM 017 5:24 (specimen) EST PM EST Resulting Agency Comment Spec In Lab Daphne Shahid MD CHEMISTRY ORDERABLES Performing Organization Address City/State/[place] [address] (ABNORMAL) Basic Metabolic Panel (non-fasting) (07/05/2017 4:55 PM EST) athologist Signature Glucose Lvl 230 (H) 65 - 199 [facility] mg/dL [facility]ORY Comment: Diabetes: >=200 mg/dL plus symp toms BUN 19 10 - 20 mg/dL [facility] Creatinine 1.04 0.80 - 1.50 mg/dL [facility] [...] or in patients with acute kidney failure. http://NewHive/DHnkdep http://IntelligenceBank.com/DHMCnkf Specimen Anatomical Collection Method Collection Time Receive d Time (Source) Location / / Volume Laterality Blood specimen 07/05/2017 4:55 PM 017 5:24 (specimen) EST PM EST Resulting Agency Comment Spec In Lab Daphne Shahid MD CHEMISTRY ORDERABLES Performing Organization Address City/[facility]/ZIP [place] [address] (ABNORMAL) APTT (07/05/2017 4:55 PM EST) P athologist Signature PTT 41 (H) 25 - 35 sec [facility] LAB[facility]ORY Comment: The recommended therapeutic range for fu ll dose, unfractionated heparin at [facility] is 80 ? 114 [...] Shahid MD HEMATOLOGY ORDERABLES Performing Organization Address City/[facility]/ZIP [place] [address] (ABNORMAL) POCT Glucose (07/05/2017 4:53 PM EST) P athologist Signature POC Glucose 208 (H) 65 - 199 [facility] mg/dL [facility] LAB[facility]ORY Comment: Supplemental ranges: <140 mg/dL before meals <180 mg/dL all other times of the day Specimen Anatomical Collection Method Collection Time Receive d Time (Source) Location / / Volume Laterality Blood specimen 07/05/2017 4:53 PM 017 4:53 (specimen) EST PM EST Daphne Shahid MD POINT OF CARE TEST ORDERABLE S Performing Organization Address City/[facility]/ZIP [place] [address] EKG 12 Lead (07/05/2017 4:32 PM EST) Component Value Ref Range Test Analysis Performed Pathologis t Method Time At Signature Ventricular rate 97 BPM MUSE SYSTEM Atrial Rate 97 BPM MUSE SYSTEM P-R Interval 148 ms MUSE SYSTEM QRS Duration 96 ms MUSE SYSTEM Q-T Interval 364 ms MUSE SYSTEM QTC Calculated 462 ms MUSE SYSTEM (Bezet) Calculated P Mcl[place] 48 degrees MUSE SYSTEM Calculated R [place]cl[place] -33 degrees MUSE SYSTEM Calculated T Mclaughlin 98 degrees MUSE SYSTEM INTERPRETATION Normal sinus [...] Coronary atherosclerosis of unspecified type of vessel, pilot station or graft Cardiomyopathy, ischemic Other specified forms [...] dose on Wed07/07/17 at 2100, Until Discontinued, [place] teeth, Routine Given 07/08/2017 10:06 PM EST [...] or norepinephrine is ineffective. Call pager # [phone] if initiated. Rate/Dose Change 07/08/2017 7:01 PM [...] if phenyleprine and/or vasopressin ineffective.Call pager # [phone] if initiated., Routine Rate/Dose Change 07/09/2017 1:24 [...] L/min/M2. Maximum volume 2 L. Call warehouse processor for additional fluid orders: pager #[phone]. Rate/Dose Verify 07/08/2017 4:00 AM EST 100 [...] Jones, VAMSI)0900 (Not Given - Provider: Em Joens RN [...] Contraindicated) 0000 (Not Given - Provider: Ale mroris RN - Reason: Order parameters not met)0400 [...] Reason: Contraindicated) 0922 (See Alternative - Provider: Zca Young RN) 40 mg, Intravenous, DAILY, First [...]
Routine documented in this encounter Care Teams Dishcloth Folder Relationship Specialty Start Date End Date Lovely Vicente MD PCP - General 04/16/[address] [place] [address] documented as of this encounter
--- OUTSIDE RECORDS SUMMARY | 2022-03-13 11:00 | XMS_ITS | Encounter Summary ---
:1945 Author Organization [facility] [place] [address] Care Team Providers Name Role Phone Lovely Vicente MD Primary Care Provider Encounter Details Date Type Department Care Team Description 07/08/2017 Orders Only Cardiology [facility] [place] [address] Social History Tobacco Use Types Packs/Day [...] Nobles MD [facility] [address] [place], [place] [address] (Wo rk) 05/28/2022 Appointment Cardiology Zulma Dolan MD [facility] [address] [place] [address] (Wo rk) 05/28/2022 Laboratory Appointment Lab 05/28/2022 Office Visit Cardiology Zulma Dolan MD [facility] [place] [address] Liz Poole PA [facility] [place] [address] 06/10/2022 Office Visit Dermatology Laura Scherer MD [facility] [address] [place], [place] [address] (Wo rk) documented as of this encounter Procedures Procedure Name Priority Date/Time Associated Diagnosis Comme nts TRANSESOPHAGEAL Routine 07/08/2017 Results for this ECHOCARDIOGRAM (AVELINO) procedu re are in the results section. documented in this encounter Results Transesophageal Echocardiogram (AVELINO) (07/08/2017) Specimen (Source) Anatomical Location Collection Method / Collectio n Time Received Time / Laterality Volume 07/08/2017 Narrative [facility] - 07/08/2017 12:25 PM ES T Procedure: ?Transesophageal Echocardiogram Patient: ?NATALYA Mccollum ? (Age): 1945(72y) Med Rec#: ? [id number] ?Sex: ?M ? Site Loc: ? Ht / Wt: ??(cm)/ (kg) ? Pt. Loc: ? Study Date: ?? 07/07/2017 ?Pt. Type: Tape: ? Referring: Yuan Retana Reading: Yifan Perez MD ([id number]) Performing: Yifan Perez MD ([id number]) Diagnosis: SUMMARY: 1. Intraoperative AVELINO performed at [facility] of Dr. Mike for the diagnosis and [...] Mid-Inferior ?Hypokinetic ? Mid-Inferoseptal ?Hypokinetic ? [place]-Septal ? Hypokinetic ? [place]-Anterior ? Hypokinetic ? [place]-Lateral ?Hypokinetic ? [place]-Inferior ? Hypokinetic ? [place]-Tip ?Not Seen ? This report has been electronically sign ed by: _ Yifan Perez MD ? 07/08/2017 12 :25:18 Images reviewed and interpretation verif ied [facility] Cardiac Ultrasound Laboratory Procedure Note Yifan Perez MD - 07/08/2017Formatt ing of this note might be different from the original. Procedure: Transesophageal Echocardiogra m Patient: NATALYA MCBRIDE(Age): [birth year]72y) Med Rec#: [id number] Sex: M Site Loc: Ht / Wt: (cm)/ (kg) Pt. Loc: Study Date: 07/07/2017 Pt. Type: Tape: Referring: Yuan Retana Reading: Yifan Perez MD ([id number]) Performing: Yifan Perez MD ([id number]) Diagnosis: SUMMARY: 1. Intraoperative AVELINO performed at [...] Hypokinetic Mid-Posterolateral Hypokinetic Mid-Inferior Hypokinetic Mid-Inferoseptal Hypokinetic [place]-Septal Hypokinetic [place]-Anterior Hypokinetic [place]-Lateral Hypokinetic [place]-Inferior Hypokinetic [place]-Tip Not Seen This report has been electronically sign ed by: _ Yifan Perez MD 07/08/2017 12:25:18 Images reviewed and interpretation elvie hwang [facility] Cardiac Ultrasound Laboratory Unknown ECHO ORDERABLES Performing Organization Address City/State/ZIP Code Phon e Number [facility] documented in this encounter Visit Diagnoses Not on filedocumented in this encounter Care Teams Component Lab Tech Relationship Specialty Start Date End Date Lovely Vicente MD PCP - General 04/16/[address] [place] [address] documented as of this encounter
--- OUTSIDE RECORDS SUMMARY | 2022-03-13 11:01 | XMS_ITS | Encounter Summary ---
:1945 Author Organization [facility] Address [facility] [place] [address] Care Team Providers Name Role Phone Lovely Vicente MD Primary Care Provider Reason for Visit Auth/Cert Specialty Diagnoses / Procedures Referred By Contact Refer red To Contact Diagnoses STEMI (ST elevation myocardial infarction) NSTEMI STEMI Procedures CARDIAC CATHETERIZATION NAYE IPI Referral ID Status Reason Start Date Expiration Date Visits Requ ested Visits Authorized [id number] 1 1 Encounter Details Date Type Department Care Team Description 07/07/2017 Surgery Main Operating Room Yuan Webber, @ CABG, USING ARTERIAL Barbara Ocampo MD GRAFT;SINGLE ARTERIAL Hospital [facility] GRAFT (WRVU 33.75) [facility] DR Siddiqui [place] [address] SURGERY [phone] [place], [place] [address] (Wo rk) Social History Tobacco [...] in this encounter Discharge Summaries Martha Teague, PILOT BOAT CAPTAIN - 07/14/2017 9:38 AM EST Inpatient - Discharge Summary Patient Name: Gregory Hoang Patient Age: 72 y.o. Birthdate: 1945 Language: Montenegrin Race: White Ethnicity: Not nor Admit Date: [...] , @ 1:20p Patient to follow-up with Irrigation Tax Assessor Collector/heart failure team in one week. An appointment will be made for you. You may call [phone] Patient to follow-up with Cardiac Surgery, Dr. Yuan Webber, in ~ 4 weeks with CXR, EKG. Inpatient Provider Contact Information: [facility] Section of Cardiac Surgery [facility] [phone] FAX [phone] Discharge Diagnoses (Hospital Problems) Primary Diagnoses: CAD [...] SETUP performed by Manny Mcknight MD at [facility] OR ??? PRO CABG, ARTERIAL, SINGLE N/A 07/07/2017 @CABG, USING ARTERIAL GRAFT;SINGLE ARTERIAL GRAFT (WRVU 33.75) performed by Yuan Webber MD at [facility] OR ??? PRO CABG, ARTERY-VEIN, TWO N/A 07/07/2017 @CABG, TWO VENOUS GRAFTS & ARTERIAL GRAFT (WRVU 7.93) performed by Yuan Webber MD at [facility] OR ??? PRO COLONOSCOPY, REMV LESN, SNARE 01/16/2014 COLONOSCOPY, POLYPECTOMY, REMOVAL LESION BY SNARE performed by Nohemi Jaimes MD at [facility] ENDOSCOPY ??? PRO ENDOSCOPY W/VIDEO-ASST VEIN HARVEST, CABG Right 07/07/2017 ENDOSCOPIC HARVEST VEIN(S) FOR CABG (WRVU 0.31) performed by Yuan Webber MD at [facility] OR ??? PRO THYROIDECTOMY 03/28/2013 THYROIDECTOMY, TOTAL OR COMPLETE performed by Manny Mcknight MD at [facility] OR Prior To Admission Medications Prescriptions Prior to Admission Medication Sig Dispense Refill Last Dose ??? levothyroxine (SYNTHROID) 175 mcg Tablet Take 1 tablet by mouth daily. 90 tablet 3 07/05/2017 [id number] ??? ascorbic acid, vitamin C, (VITAMIN C) [...] Hospital Course: Gregory Hoang was admitted to [facility] on 07/05/2017 via the Cardiology Service. During his hospital course, he was taken emergently to the general production laborer for an ongoing STEMI. An IABP [...] not take or discontinue any prescription or sekg-dbt-zhedyze medications without asking your doctor or pharmacist [...] day to have your insulin doses adjusted. [facility] Endocrine clinic office Discharge Instructions: Call your doctor if: You have a fever of greater than 101 degrees, shaking chills, if you develop redness or drainage from your incision sites, or if you have questions. Please call your surgeon's office if you have any discharge or drainage from your chest incision. Your surgeon, Dr. Yuan Webber and/or the Cardiac Surgery Physician Mini Lab Operator Team may be reached at . [...] Dr. Yuan Webber. You may use a [place] Track or treadmill but avoid any pulling [...] with the surgeon. Do not ride motorcycles, [employer]'s tractors or horses. Avoid the use of [...] should resume a low fat, low cholesterol, Greek Heart Association Diet/Diabetic diet. Driving: No driving [...] , @ 1:20p Patient to follow-up with Irrigation Tax Assessor Collector/heart failure team in one week. Appointment will be made for you. You may call [phone] Patient to follow-up with Cardiac Surgery, Dr. Yuan Webber, in ~ 4 weeks with CXR, EKG. Cardiac Rehabilitation: Gregory Hoang was seen today regarding participation in the outpatient Phase 2 Cardiac Rehabilitation at [facility]. The patient agrees to a referral to this program. The referral will be sent at discharge and the patient should be contacted by the Program within 1- 2 weeks from discharge. ?? Future Appointments and Orders Future Appointments Provider Department Dept Phone 09/07/2017 3:00 PM LAB, THREE L Lab 3L [facility] [phone] 09/07/2017 4:00 PM Luz Prescott MD Endocrinology at [place] [phone] Future Orders Complete By Expires EKG 12 Lead [EKG1 Custom] 08/14/2017 02/13/2018 Process Instructions: Scheduling Instructions: Questions: Which DH location will this be performed?: [place] Is a rhythm strip needed?: No If EKG Reason is Pre-op Evaluation, indicate diagnosis for surgery.: XR Chest PA & Lateral (Generic) [[id number] Custom] 08/14/2017 02/13/2018 Process Instructions: Scheduling Instructions: Questions: Where will study be performed?: [place] Portable exam?: Reason for exam and clinical history: CABG x 3 Other pertinent information: Stat read required?: Date of injury if applicable: Requested Time: Referral to Cardiac Rehab [CAH542 Custom] As directed Process Instructions: If no progress note charted, please enter Clinical details in comments. Scheduling Instructions: Questions: My question or request is: s/p CABG. Cardiac rehab at [facility] Referral to Home Health - at DISCHARGE [CPI8810 CPT(R)] As directed Process Instructions: Scheduling Instructions: Comments: DOCUMENTATION FOR VNA SERVICES (INCLUDING THOSE PATIENTS WITH MEDICARE COVERAGE REQUIRING HOME VNA SERVICES AND/OR HOSPICE SERVICES) PATIENT'S LOCATION: Gregory Hoang [address] [place] [address] [place] [id number] (home) Telephone Information: Young Adult Librarian's Name: self In discussion with the attending physician, it is certified that this patient is under their care and that they, or a Nurse Practitioner, or Physician Mini Lab Operator who is working directly with them, [...] ([facility] [place] [employer]-is in [place] PHONE: [phone] FAX: [phone] RN orders: Cardiopulmonary assessment, incisional assessment, assess vital signs, assessment of rehab progress, medication management and effectiveness, home safety evaluation. Please draw INR if indicated and send result to:Dr Vicente [phone] PT ORDERS: Continue rehab for endurance, gait stability and strength with mobility and transfers. Home safety evaluation. Home exercise program if appropriate. Start of Care Date:24-48 hours after discharge SPECIAL INSTRUCTIONS: For any follow up questions, needs, or issues please call the Cardiac Surgery Office at [phone] FOR MEDICARE ONLY: (please delete this section [...] OR AFTER 07/17/2017 Signed: Martha Teague APRN [facility] Section of Cardiac Surgery [facility] [id number] FAX [phone] Date: 07/14/2017 CC: MD Ivania Cr Betsy, PA [address] [place] [phone] documented in this encounter Discharge Instructions Discharge [...] day to have your insulin doses adjusted. [facility] Endocrine clinic office Patient InstructionsStMartha mcdonald APRN [...] not take or discontinue any prescription or lidg-hfl-nclddpa medications without asking your doctor or pharmacist [...] day to have your insulin doses adjusted. [facility] Endocrine clinic office ? Discharge Instructions: ?? Call your doctor if: You have a fever of greater than 101 degrees, shaking chills, if you develop redness or drainage from your incision sites, or if you have questions. Please call your surgeon's office if you have any discharge or drainage from your chest incision. Your surgeon, Dr. Yuan Webber and/or the Cardiac Surgery Physician Mini Lab Operator Team may be reached at . [...] Dr. Yuan Webber. You may use a [place] Track or treadmill but avoid any pulling [...] with the surgeon. Do not ride motorcycles, [employer]'s tractors or horses. Avoid the use of [...] should resume a low fat, low cholesterol, Greek Heart Association Diet/Diabetic diet. ?? Driving: No [...] @ 1:20p ?? Patient to follow-up with Irrigation Tax Assessor Collector/heart failure team in one week. An appointment has been made for you, you can call [phone] ?? Patient to follow-up with Cardiac Surgery, Dr. Yuan Webber, in ~ 4 weeks with CXR, EKG. ? Cardiac Rehabilitation: Gregory Hoang??was seen today regarding participation in the outpatient Phase 2 Cardiac Rehabilitation at [facility]. ?? The patient agrees to a referral to this program.? The referral will be sent at discharge and the patient should be contacted by the Program within 1- 2 weeks from discharge. ? Future Appointments and Orders Future Appointments Provider Department Dept Phone ?? 09/07/2017 3:00 PM LAB, THREE L Lab 3L [facility] [phone] ?? 09/07/2017 4:00 PM Luz Prescott MD Endocrinology at [place] [phone] Future Orders Complete By Expires ?? EKG 12 Lead [EKG1 Custom] 08/14/2017 02/13/2018 ?? Process Instructions: ? Scheduling Instructions: ? Questions: ? Which location will this be performed?: [place] ?? Is a rhythm strip needed?: No ?? If EKG Reason is Pre-op Evaluation, indicate diagnosis for surgery.: ?? XR Chest PA & Lateral (Generic) [[id number] Custom] 08/14/2017 02/13/2018 ?? Process Instructions: ? Scheduling Instructions: ? Questions: ? Where will study be performed?: [facility] ?? Portable exam?: ?? Reason for exam and clinical history: CABG x 3 ?? Other pertinent information: ?? Stat read required?: ?? Date of injury if applicable: ?? Requested Time: ?? Referral to Cardiac Rehab [JQS561 Custom] As directed ? Process Instructions: ?? If no progress note charted, please enter Clinical details in comments. ?? Scheduling Instructions: ? Questions: ? My question or request is: s/p CABG. Cardiac rehab at [facility] ? Arrangements for VNA/home care: As above. 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 A letter describing our affiliations was reviewed with them and theywere educated about their right to choose where referrals are placed. Patient requests referral to [facility]. PHONE: [phone] FAX: [phone] Expected date of discharge: 07/14 Referral routed to the Executive Director for matching with agency/vendor and to provide [...] day to have your insulin doses adjusted. [facility] Endocrine clinic office Kathie Carrera APRN [facility] Endocrinology Diabetes Management Pager [phone] minutes of this 35 minute visit was spent with the patient in counseling on diabetes and treatment plan, reviewing all glucose and insulin data as well as relevant laboratory results with the patient, and coordination of care on the inpatient unit including nursing and primary team. 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 A letter describing our affiliations was reviewed with them and theywere educated about their right to choose where referrals are placed. Patient requests referral to : Yasmani Munguia ([facility] [place] [employer]-is in [place]) PHONE: [phone] FAX: [phone]. Expected date of discharge: 07/14/17 Referral routed to the Executive Director for matching with agency/vendor and to provide [...] hours. If BG remains greater than 240, kynjyw66 units (no more than three times) &??call [...] Will continue to follow Katerin Azul APRN [facility] Endocrinology Diabetes Management Pager [phone] minutes of this 25 minute visit [...] of infiltration/extravasation Discussed plan of care with PRESS TENDER INCENDIARY GRENADE and RN. Elevate exrtemity and apply intermittent Warm compresses. Name of MD contacted Dr. Shaw Brown 07/13/2017 @ 0663 Name of RN contacted Ale Rangel RN Name of Pharmacist if consulted NA Name of Plastics MD ( if consulted) NA (Mandatory photo for infiltrations/ extravasations scoring a stage 2 or greater, but recommended forstage 1)( include measuring tape and identifier in the photo) E/M ENGINEER CARING FOR THIS PATIENT WILL CONTINUE [...] measuring tape and identifier in the photo) E/M ENGINEER CARING FOR THIS PATIENT WILL CONTINUE [...] regard to both infiltrates addressed by this technical writer and editor.All of MrMadiha oHang's responses were entirely appropriate. Images of infiltrates attached here. 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 I have provided the [facility], Office of Care Management letter from the Sales Promotion Coordinator pertaining to rehab referrals. I have also provided a letter describing our affiliations within the [facility] and educated them about their right to choose where referrals are placed. ?? I reviewed the different levels of rehab including SNF, swing, acute and LTAC with the patient/sales representative malt liquors. ?? 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 ?? I have requested that the patient/sales representative malt liquors provide at least three choices for referral. ?? The patient/sales representative malt liquors have requested referrals to: ?? [facility]. [facility] ?? 2. [facility] ?? 3. More to be entered ?? Expected date of discharge: 07/14 Note routed to Executive Director who will communicate referrals to facilities and [...] hours. If BG remains greater than 240, xguinw56 units (no more than three times) & [...] hours. If BG remains greater than 240, ybbvet90 units (no more than three times) & call for new basal insulin orders. ??If less than 240 after two hours, give no insulin and resume prior schedule. Will continue to follow Katerin Azul APRN [facility] Endocrinology Diabetes Management Pager [phone] minutes of this 35 minute visit was spent with the patient in counseling on diabetes and treatment plan, reviewing all glucose and insulin data as well as relevant laboratory results with the patient, and coordination of care on the inpatient unit including nursing and primary team. Makayla Stevenson APRN - 07/12/2017 9:52 AM EST Cardiac Surgery Progress Note: ID: [id number] 72 year old male POD#5 s/p CABGx3 [...] 07/11/2017 7:18 PM EST Patient arrived from [facility]. VSS. MSI dressing pulled off with fresh [...] hours. If BG remains greater than 240, bziipt38 units (no more than three times) & [...] AM EST Cardiac Surgery Progress Note: ID: [id number] 72 year old male POD#4 s/p CABGx3 [...] AM EST Cardiac Surgery Progress Note: ID: [id number] 72 year old male POD#3 s/p CABGx3 [...] Gas) No results found for: PHART, PO2ART, QKA5OIN Assessment/Plan: 72 year old male POD#3 s/p [...] Mami Thao - 07/09/2017 6:29 PM EST Kindergarten Prep Teacher Encounter Note Patient Name: Gregory Hoang : [id number] MR#: [id number] Admit Date: 07/05/2017 4:20 PM Hospital Day 4 days Narrative: Patient was sitting in chair, hugging heart pillow, opened his eyes, nodding to come into room Assessment: Patient was sleepy. Intervention and Outcome: Introduced financial center manager services and patient reached his hand out in appreciation. Follow-up: Kindergarten Prep Teacher remains available for support. Time in Direct [...] AM EST Cardiac Surgery Progress Note: ID: [id number] 72 year old male POD#2 s/p CABGx3 [...] completed shifts: In: 7977.4 [I.V.:7477.4; Other:500] Out: 3345 [Urine:3000; Other:615] I- 4 L O- 2.7 [...] Attending Surgeon on rounds. Signed: STEPHANIE Iqbal [facility] Section of Cardiac Surgery Date: [...] when IABP d/c'ed. Gretchen Carolina, PT Pager [phone] Maddison Cee PA - 07/08/2017 11:27 AM EST Cardiac Surgery Progress Note: ID: [id number] 72 year old male POD#1 s/p CABGx3 [...] Attending Surgeon on rounds. Signed: STEPHANIE Iqbal [facility] Section of Cardiac Surgery Date: [...] in place in R femoral. No hematoma. GRADES 1 THROUGH 6 TEACHER- Intact Psych- Anxious Skin- Dry, no peripheral [...] intact. IABP in place in R femoral. GRADES 1 THROUGH 6 TEACHER- Intact Psych- Anxious Skin- Dry, no peripheral [...] pending CABG - hold metformin - f/u [facility] ?? #Home Meds - continue [...] note for details. DAPHNE SHAHID MD Pager [phone] Jet Mckenna MD - 07/05/2017 6:48 PM EST Preliminary Cardiac Catheterization Procedure Note: Procedure(s) performed: Left heart cath, IABP insertion Access: Right DRUM DRIER-->8fr IABP A time-out was conducted prior to [...] effect. Heparin gtt maintained. Pt transferred to general production laborer. documented in this encounter H&P Notes Daphne Shahid MD - 07/05/2017 6:08 PM EST CARDIOLOGY HISTORY & PHYSICAL EXAM Date of Admission: 07/05/2017 ( Hospital Day 0 days ) Responsible Attending: Daphne Shahid MD PCP: Lovely Vicente MD PCP#: [phone] Patient Active Problem List Diagnosis Code ??? [...] load with heparin drip and transferred to [facility]. While there, continued sob, question of chest pain. Stat TTE showing WMA diffusely and EF around 20%. No significant valvular disease. Taken to the general production laborer urgently for ongoing STEMI. [facility] Labs: INR 1.0 WBC 5.88 Hgb 12.9 [...] monitor I/O - s/p lasix in the general production laborer, redose to aim net neg 1L [...] Medicine, PGY-2 Cardiology S1, Team Pager # [phone] CARDIOLOGY ATTENDING NOTE Patient: Gregory Hoang Date [...] amenable for PCI. DAPHNE SHAHID MD Pager [phone] documented in this encounter Miscellaneous Notes Consult Note - Daphne Shahid MD - 07/14/2017 11:46 AM EST Heart Failure Service Inpatient Consult Note Gregory Hoang Date of : 1945 Age: 72 y.o. Today's date: 07/14/17 PCP: Lovely Vicente MD LEGAL ASSOCIATE: None Place of Service: C451-A Reason for [...] SETUP performed by Manny Mcknight MD at [facility] OR ??? PRO CABG, ARTERIAL, SINGLE N/A 07/07/2017 @CABG, USING ARTERIAL GRAFT;SINGLE ARTERIAL GRAFT (WRVU 33.75) performed by Yuan Webber MD at [facility] OR ??? PRO CABG, ARTERY-VEIN, TWO N/A 07/07/2017 @CABG, TWO VENOUS GRAFTS & ARTERIAL GRAFT (WRVU 7.93) performed by Yuan Webber MD at [facility] OR ??? PRO COLONOSCOPY, REMV LESN, SNARE 01/16/2014 COLONOSCOPY, POLYPECTOMY, REMOVAL LESION BY SNARE performed by Nohemi Jaimes MD at [facility] ENDOSCOPY ??? PRO ENDOSCOPY W/VIDEO-ASST VEIN HARVEST, CABG Right 07/07/2017 ENDOSCOPIC HARVEST VEIN(S) FOR CABG (WRVU 0.31) performed by Yuan Webber MD at [facility] OR ??? PRO THYROIDECTOMY 03/28/2013 THYROIDECTOMY, [...] following studies: EKG 07/14/17: NSR 75 bpm, PATIENT RELATIONS DIRECTOR anterior infarct, LAD CXR 07/11/17: FINDINGS: Sternotomy wires. The patient has been extubated, left chest tube removed, and Longs-Suzi catheter removed since the 07/07/2017 study. Atelectasis [...] was discussed with Zehra. Jaden Kelley MD National Van Owner Operator Pager [phone] CARDIOLOGY ATTENDING NOTE Patient: Gregory Hoang Date [...] heart failure clinic. DAPHNE SHAHID MD Pager [phone] Plan of Care - Alden Chavarria, COMMUNICATION EQUIPMENT MECHANIC - 07/14/2017 11:35 AM EST Problem: Patient [...] Disposition: home with assist Alden Jorge Genikevin, COMMUNICATION EQUIPMENT MECHANIC Pager: [phone] Inpatient Physical Therapy Problem: Acute Rehab Services [...] sit/sit to supine -- Bed Mobility Goal, Cherry Level supervision required -- Bed Mobility Goal, [...] - 3 days -- Gait Training Goal, Cherry Level supervision required -- Gait Training Goal, [...] days -- Transfer Training Goal, Activity Type gye-og-wtxfa/vawbl-jj-jwu;mjk-lv-dqnxf/gojoj-xg-agz;toilet -- Transfer Train Goal, Cherry Level supervision required -- Transfer Training Goal, [...] keeping present for 2 days per family. Laborer Driver noted of frustrations, house keeping sent to room. Patient offered showered twice, refused. at bedside, frustrated that shower not complete, informed that patient had refused several times. requesting to see DIRECTOR OF PRODUCT MARKETING, paged sent to Martha, will come to bedside (middle of consult). not willing to wait, Martha notified that family had gone home. Encouraged to come for morning rounds a t 8am. Diabetes team at bedside - insulin adjustments made. Call cabello in reach. Continue to monitor. PLAN MOVING FORWARD: Ambulate, dressing changes BID, Please change drsg at 4am per Martha DIRECTOR OF PRODUCT MARKETING request. INDIVIDUALIZED FALL PREVENTION INTERVENTIONS: Patient-specific fall [...] levels on the lower side, 60ml of Big Tim[place] juice given after a FS of 80. [...] Conf 07/13/17 0502 Interdisciplinary Rounds/Family Conf Participants test case developer;dietitian/nutrition services;nursing;occupational therapy;patient;pharmacy;physical therapy;physician Plan of Care - [...] Anticipated Discharge Disposition: home with assist Pager: [phone] CLARISSA SEGAL, PT 07/12/2017 Physical Therapy Rehabilitation [...] to sit/sit to supine Bed Mobility Goal, Cherry Level supervision required Bed Mobility Goal, Additional Goal adheres to psternal precautions for transfer Goal: Gait Training Goal Stand Alone Therapy Goal Outcome: Ongoing (Interventions Implemented as Appropriate) 07/12/17 1225 Gait Training Goal Gait Training Goal, Date Established 07/12/17 Gait Training Goal, Time to Achieve 2 - 3 days Gait Training Goal, Cherry Level supervision required Gait Training Goal, Assist [...] 3 days Transfer Training Goal, Activity Type jbo-av-gwlyr/seffk-xt-uhj;nbf-vm-lyujm/syiab-ai-zbo;toilet Transfer Train Goal, Cherry Level supervision required Transfer Training Goal, Additional Goal adheres to sternal precautions during transfer Consult Note - Octavia Vaughn RN - 07/12/2017 10:50 AM EST [facility] CARDIAC REHABILITATION Gregory Hoang was seen today regarding participation in the outpatient Phase 2 Cardiac Rehabilitation at [facility]. The patient agrees to a referral to [...] IV site, amio to other piv and PROP DRAWER at bedside to help assess, IV removed. [...] staff, he stood and marched in place. [place] weak, wanting to sit back down. Remained [...] Health/Prescription Coverage: Primary Insurance: MEDICARE Secondary Insurance: [employer] [place] Prescription Coverage: yes Preferred Pharmacy: [facility] [place] [place] Other: none Primary Care Provider: Lovely Vicente MD [phone] Patient/Caregiver Goals of Treatment:live and get my breath back Potential Needs for Transition of Care: Rehab/SNF: [facility]: NA DME: TBD Dialysis: na Community Resources: available Transportation: yes Other: none Anticipated Barriers to Discharge/Special Considerations: none Plan: Likely SNF Rehab before home A member of the Care Management team will continue to monitor progress, follow for continuity of care and assist with transition of care planning. ERLIN Weiss Pager: [phone] Consult Note - Katerin Azul RN - [...] of moth exterminator diabetes care. Diabetes History: Gregory Hoang [...] patient W/E coverage, Dr. Jeane Tatum, pager [phone] Katerin Azul APRN Endocrinology Diabetes Management Pager [phone] Plan of Care - Walt Stephanie Wyatt [...] Webber MD - 07/07/2017 6:27 PM EST [facility] Operative Note Patient Name: Gregory Hoang : [id number] MR#: [id number] Case Date: 07/07/2017 Surgeon: Surgeon(s) and Role: * Yuan Webber MD - Primary * Michael Drake PA - Physician Mini Lab Operator * Linda Flores PA - Physician Mini Lab Operator Preoperative diagnosis: 3VD Postoperative diagnosis: CAD, [...] Operative Note Patient Name: Gregory Hoang : [id number] MR#: [id number] Case Date: 07/07/2017 Surgeon: Surgeon(s) and Role: * Yuan Webber MD - Primary * Michael Drake PA - Physician Mini Lab Operator * Linda Flores PA - Physician Mini Lab Operator Preoperative diagnosis: 3VD Postoperative diagnosis: CAD, [...] code status: Full Code Katty Hahn, MS3 [facility] Cardiology S1 (Pager [phone]) Plan of Care - Emelia Ibarra RN [...] with other involved physicians Yuan Webber MD [phone] Med Student Progress Note - Katty Hahn - 07/06/2017 6:10 AM EST Inpatient Cardiology Progress Note Patient Name: Gregroy Hoang Date of Admission: 07/05/2017 ( Hospital [...] or BiPAP - 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 [...] MD [facility] [address] [place], [place] [address] (Wo rk) 05/28/2022 Appointment Cardiology Zulma Dolan MD [facility] [address] [place], [place] [address] (Wo rk) 05/28/2022 Laboratory Appointment Lab 05/28/2022 Office Visit Cardiology Zulma Dolan MD [facility] [place] [address] Liz Poole PA [facility] [place] [address] 06/10/2022 Office Visit Dermatology Laura Scherer MD [facility] DR TEJA GR-DERMAT [place], [place] [address] (Wo rk) Scheduled Orders Name [...] procedure are i n the results section. BEER MAKER SCAN 07/15/2017 12:00 Res ults for [...] Routine 07/08/2017 4:00 Results f or this ([facility] AM EST procedure are i n the [...] Yes 07/07/2017 1:35 CAD VEIN[facility] 0.31) @CABG, TWO VENOUS GRAFTS Yes 07/07/2017 1:35 CAD & ARTERIAL GRAFT ([facility] PM EST 7.93) @CABG, USING ARTERIAL Yes 07/07/2017 1:35 CAD GRAFT;SINGLE ARTERIAL PM EST GRAFT ([facility] 33.75) PREPARE COAG FACTORS STAT 07/07/2017 [...] Routine 07/06/2017 7:40 Results f or this ([facility]) PM EST procedure are i n the [...] Timed 07/06/2017 2:10 Results f or this ([facility]) PM EST procedure are i n the [...] section. 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 IMG DX ORDERABLES SCAN DOC: BEER MAKER (07/15/2017 12:00 AM EST) Narrative 07/15/2017 [...] 186 65 - 199 [facility] mg/dL [facility] Comment: Supplemental ranges: <140 mg/dL before meals <180 mg/dL all other times of the day Specimen Anatomical Collection Method Collection Time Receive d Time (Source) Location / / Volume Laterality Blood specimen 07/14/2017 11:56 7 (specimen) AM EST 11:56 AM EST Yuan Webber MD POINT OF CARE TEST ORDERABLE S Performing Organization Address City/State/[place] [address] POCT Glucose (07/14/2017 7:52 AM EST) athologist Signature POC Glucose 126 65 - 199 [facility] mg/dL [facility] Comment: Supplemental ranges: <140 mg/dL before meals <180 mg/dL all other times of the day Specimen Anatomical Collection Method Collection Time Receive d Time (Source) Location / / Volume Laterality Blood specimen 07/14/2017 7:52 AM 017 7:52 (specimen) EST AM EST Yuan Webber MD POINT OF CARE TEST ORDERABLE S Performing Organization Address City/[facility]/[place] [address] (ABNORMAL) Prothrombin Time (07/14/2017 4:46 AM EST) P athologist Signature PT 26.4 (H) 11.8 - 14.0 [facility] LABORATORY INR 2.4 (H) 0.9 - [...] Address City/State/ZIP Code Phon e Number [address] Potassium (07/14/2017 4:46 AM EST) athologist Signature Potassium 4.3 3.5 - 5.0 [facility] mmol/L [facility] Comment: Please note: ??Patients with [...] Wilson APRN CHEMISTRY ORDERABLES Performing Organization Address City/[facility] Code Phon e Number [address] POCT Glucose (07/14/2017 4:34 AM EST) athologist Signature POC Glucose 115 65 - 199 [facility] mg/dL [facility] Comment: Supplemental ranges: <140 mg/dL before meals <180 mg/dL all other times of the day Specimen Anatomical Collection Method Collection Time Receive d Time (Source) Location / / Volume Laterality Blood specimen 07/14/2017 4:34 AM 017 4:34 (specimen) EST AM EST Yuan Webber MD POINT OF CARE TEST ORDERABLE S Performing Organization Address City/[facility]/[place] [address] POCT Glucose (07/13/2017 11:33 PM EST) athologist Signature POC Glucose 132 65 - 199 [place] [place] mg/dL [facility] Comment: Supplemental ranges: <140 mg/dL before meals <180 mg/dL all other times of the day Specimen Anatomical Collection Method Collection Time Receive d Time (Source) Location / / Volume Laterality Blood specimen 07/13/2017 11:33 7 (specimen) PM EST 11:33 PM EST Yuan Webber MD POINT OF CARE TEST ORDERABLE S Performing Organization Address City/[facility]/[place] [address] POCT Glucose (07/13/2017 9:25 PM EST) athologist Signature POC Glucose 121 65 - 199 [place] mg/dL [facility] Comment: Supplemental ranges: <140 mg/dL before meals <180 mg/dL all other times of the day Specimen Anatomical Collection Method Collection Time Receive d Time (Source) Location / / Volume Laterality Blood specimen 07/13/2017 9:25 PM 017 9:25 (specimen) EST PM EST Yuan Webber MD POINT OF CARE TEST ORDERABLE S Performing Organization Address City/State/ZIP Code Phon e Number [address] POCT Glucose (07/13/2017 4:55 PM EST) athologist Signature POC Glucose 79 65 - 199 [place] mg/dL [facility] Comment: Supplemental ranges: <140 mg/dL before meals <180 mg/dL all other times of the day Specimen Anatomical Collection Method Collection Time Receive d Time (Source) Location / / Volume Laterality Blood specimen 07/13/2017 4:55 PM 017 4:55 (specimen) EST PM EST Yuan Webber MD POINT OF CARE TEST ORDERABLE S Performing Organization Address City/State/ZIP Code Phon e Number [address] POCT Glucose (07/13/2017 11:16 AM EST) athologist Signature POC Glucose 163 65 - 199 [place] mg/dL [facility] Comment: Supplemental ranges: <140 mg/dL before meals <180 mg/dL all other times of the day Specimen Anatomical Collection Method Collection Time Receive d Time (Source) Location / / Volume Laterality Blood specimen 07/13/2017 11:16 7 (specimen) AM EST 11:16 AM EST Yuan Webber MD POINT OF CARE TEST ORDERABLE S Performing Organization Address City/State/[place] [address] POCT Glucose (07/13/2017 8:07 AM EST) athologist Signature POC Glucose 96 65 - 199 [facility] mg/dL [facility] Comment: Supplemental ranges: <140 mg/dL before meals <180 mg/dL all other times of the day Specimen Anatomical Collection Method Collection Time Receive d Time (Source) Location / / Volume Laterality Blood specimen 07/13/2017 8:07 AM 017 8:07 (specimen) EST AM EST Yuan Webber MD POINT OF CARE TEST ORDERABLE S Performing Organization Address City/State/[place] [address] (ABNORMAL) Prothrombin Time (07/13/2017 4:26 AM EST) athologist Signature PT 20.8 (H) 11.8 - 14.0 [facility] LABORATORY INR 1.8 (H) 0.9 - [...] Address City/State/[place] [address] (ABNORMAL) Basic Metabolic Panel (non-fasting) (07/13/2017 4:26 AM EST) athologist Signature Glucose Lvl 95 65 - 199 [facility] mg/dL [facility] Comment: Diabetes: >=200 mg/dL plus [...] [facility] Estimated GFR 60 >=60 [facility] Comment: The reported eGFR should be multiplied b y 1.2 for patients. The MDRD is not an appropriate measure o f renal function for patients with body mass extremes or in patients with acute kidney failure. http://[employer]FriendCode/DHnkdep http://[employer]/DHMCnkf Specimen Anatomical Collection Method Collection Time Receive d Time (Source) Location / / Volume Laterality Blood specimen 07/13/2017 4:26 AM 017 4:46 (specimen) EST AM EST Resulting Agency Comment Spec In Lab Makayla Wilson APRN CHEMISTRY ORDERABLES Performing Organization Address City/State/[place] [address] POCT Glucose (07/13/2017 3:52 AM EST) P athologist Signature POC Glucose 93 65 - 199 [facility] mg/dL [facility] Comment: Supplemental ranges: <140 mg/dL before meals <180 mg/dL all other times of the day Specimen Anatomical Collection Method Collection Time Receive d Time (Source) Location / / Volume Laterality Blood specimen 07/13/2017 3:52 AM 017 3:52 (specimen) EST AM EST Yuan Webber MD POINT OF CARE TEST ORDERABLE S Performing Organization Address City/State/ZIP Code Phon e Number [address] POCT Glucose (07/13/2017 12:21 AM EST) athologist Signature POC Glucose 80 65 - 199 [place] mg/dL [facility] Comment: Supplemental ranges: <140 mg/dL before meals <180 mg/dL all other times of the day Specimen Anatomical Collection Method Collection Time Receive d Time (Source) Location / / Volume Laterality Blood specimen 07/13/2017 12:21 7 (specimen) AM EST 12:21 AM EST Yuan Webber MD POINT OF CARE TEST ORDERABLE S Performing Organization Address City/[facility]/ZIP Code Phon e Number [address] POCT Glucose (07/12/2017 8:22 PM EST) athologist Signature POC Glucose 119 65 - 199 [place] mg/dL [facility] Comment: Supplemental ranges: <140 mg/dL before meals <180 mg/dL all other times of the day Specimen Anatomical Collection Method Collection Time Receive d Time (Source) Location / / Volume Laterality Blood specimen 07/12/2017 8:22 PM 017 8:22 (specimen) EST PM EST Yuan Webber MD POINT OF CARE TEST ORDERABLE S Performing Organization Address City/State/[place] [address] POCT Glucose (07/12/2017 4:02 PM EST) athologist Signature POC Glucose 114 65 - 199 [place] mg/dL [facility] Comment: Supplemental ranges: <140 mg/dL before meals <180 mg/dL all other times of the day Specimen Anatomical Collection Method Collection Time Receive d Time (Source) Location / / Volume Laterality Blood specimen 07/12/2017 4:02 PM 017 4:02 (specimen) EST PM EST Yuan Webber MD POINT OF CARE TEST ORDERABLE S Performing Organization Address City/State/ZIP Code Phon e Number [address] POCT Glucose (07/12/2017 11:28 AM EST) athologist Signature POC Glucose 164 65 - 199 [facility] mg/dL [facility] Comment: Supplemental ranges: <140 mg/dL before meals <180 mg/dL all other times of the day Specimen Anatomical Collection Method Collection Time Receive d Time (Source) Location / / Volume Laterality Blood specimen 07/12/2017 11:28 7 (specimen) AM EST 11:28 AM EST Yuan Webber MD POINT OF CARE TEST ORDERABLE S Performing Organization Address City/State/ZIP Code Phon e Number [address] POCT Glucose (07/12/2017 7:34 AM EST) athologist Signature POC Glucose 109 65 - 199 [facility] mg/dL [facility] Comment: Supplemental ranges: <140 mg/dL before meals <180 mg/dL all other times of the day Specimen Anatomical Collection Method Collection Time Receive d Time (Source) Location / / Volume Laterality Blood specimen 07/12/2017 7:34 AM 017 7:34 (specimen) EST AM EST Yuan Webber MD POINT OF CARE TEST ORDERABLE S Performing Organization Address City/State/[place] [address] (ABNORMAL) Basic Metabolic Panel (non-fasting) (07/12/2017 4:11 AM EST) athologist Signature Glucose Lvl 92 65 - 199 [facility] mg/dL [facility] Comment: Diabetes: >=200 mg/dL plus [...] HOSPITAL LABORATORY Estimated GFR 58 (L) >=60 [facility] Comment: The reported eGFR should be multiplied b y 1.2 for patients. The MDRD is not an appropriate measure o f renal function for patients with body mass extremes or in patients with acute kidney failure. http://[employer]/DHnkdep http://[employer]/DHMCnkf Specimen Anatomical Collection Method Collection Time Receive d Time (Source) Location / / Volume Laterality Blood specimen 07/12/2017 4:11 AM 017 8:57 (specimen) EST AM EST Resulting Agency Comment Spec In Lab Makayla Wilson STACIE CHEMISTRY ORDERABLES Performing Organization Address City/State/[place] [address] (ABNORMAL) Prothrombin Time (07/12/2017 4:11 AM EST) P athologist Signature PT 15.4 (H) 11.8 - 14.0 [facility] LABORATORY INR 1.2 (H) 0.9 - [...] Wilson APRN HEMATOLOGY ORDERABLES Performing Organization Address City/[facility]/[place] [address] Potassium (07/12/2017 4:11 AM EST) P athologist Signature Potassium 3.8 3.5 - 5.0 [facility] mmol/L [facility] Comment: Please note: ??Patients with [...] Wilson STACIE CHEMISTRY ORDERABLES Performing Organization Address City/[facility]/[place] [address] POCT Glucose (07/12/2017 4:10 AM EST) athologist Signature POC Glucose 90 65 - 199 [facility] mg/dL [facility] Comment: Supplemental ranges: <140 mg/dL before meals <180 mg/dL all other times of the day Specimen Anatomical Collection Method Collection Time Receive d Time (Source) Location / / Volume Laterality Blood specimen 07/12/2017 4:10 AM 017 4:10 (specimen) EST AM EST Yuan Webber MD POINT OF CARE TEST ORDERABLE S Performing Organization Address City/[facility]/[place] [address] POCT Glucose (07/11/2017 11:57 PM EST) athologist Signature POC Glucose 98 65 - 199 [facility] Comment: Supplemental ranges: <140 mg/dL before meals <180 mg/dL all other times of the day Specimen Anatomical Collection Method Collection Time Receive d Time (Source) Location / / Volume Laterality Blood specimen 07/11/2017 11:57 7 (specimen) PM EST 11:57 PM EST Yuan Webber MD POINT OF CARE TEST ORDERABLE S Performing Organization Address City/State/[place] [address] POCT Glucose (07/11/2017 8:32 PM EST) athologist Signature POC Glucose 146 65 - 199 [facility] mg[facility]dL [facility] Comment: Supplemental ranges: <140 mg/dL before meals <180 mg/dL all other times of the day Specimen Anatomical Collection Method Collection Time Receive d Time (Source) Location / / Volume Laterality Blood specimen 07/11/2017 8:32 PM 017 8:32 (specimen) EST PM EST Yuan Webber MD POINT OF CARE TEST ORDERABLE S Performing Organization Address City/State/[place] [address] XR Chest PA & [...] e xtubated, left chest tube removed, and Longs-Suzi catheter removed since the study. Atelectasis at [...] e xtubated, left chest tube removed, and Longs-Suzi catheter removed since the study. Atelectasis at [...] (H) 65 - 199 [facility] mg/dL [facility] Comment: Supplemental ranges: <140 mg/dL before meals <180 mg/dL all other times of the day Specimen Anatomical Collection Method Collection Time Receive d Time (Source) Location / / Volume Laterality Blood specimen 07/11/2017 4:05 PM 017 4:05 (specimen) EST PM EST Yuan Webber MD POINT OF CARE TEST ORDERABLE S Performing Organization Address City/State/[place] [address] POCT Glucose (07/11/2017 11:55 AM EST) athologist Signature POC Glucose 176 65 - 199 [facility] mg/dL [facility] Comment: Supplemental ranges: <140 mg/dL before meals <180 mg/dL all other times of the day Specimen Anatomical Collection Method Collection Time Receive d Time (Source) Location / / Volume Laterality Blood specimen 07/11/2017 11:55 12/17/201 7 (specimen) AM EST 11:55 AM EST Yuan Webber MD POINT OF CARE TEST ORDERABLE S Performing Organization Address City/State/ZIP Code Phon e Number [address] POCT Glucose (07/11/2017 7:53 AM EST) athologist Signature POC Glucose 189 65 - 199 [place] mg/dL [facility] Comment: Supplemental ranges: <140 mg/dL before meals <180 mg/dL all other times of the day Specimen Anatomical Collection Method Collection Time Receive d Time (Source) Location / / Volume Laterality Blood specimen 07/11/2017 7:53 AM 017 7:53 (specimen) EST AM EST Yuan Webber MD POINT OF CARE TEST ORDERABLE S Performing Organization Address City/[facility]/[place] [address] POCT Glucose (07/11/2017 4:22 AM EST) athologist Signature POC Glucose 151 65 - 199 [place] mg/dL [facility] Comment: Supplemental ranges: <140 mg/dL before meals <180 mg/dL all other times of the day Specimen Anatomical Collection Method Collection Time Receive d Time (Source) Location / / Volume Laterality Blood specimen 07/11/2017 4:22 AM 017 4:22 (specimen) EST AM EST Yuan Webber MD POINT OF CARE TEST ORDERABLE S Performing Organization Address City/[facility]/[place] [address] Potassium (07/11/2017 2:20 AM EST) athologist Signature Potassium 4.5 3.5 - 5.0 [facility] mmol/L [facility] Comment: Please note: ??Patients with [...] Address City/State/ZIP Code Phon e Number [address] POCT Glucose (07/11/2017 12:17 AM EST) athologist Signature POC Glucose 162 65 - 199 [place] mg/dL [facility] Comment: Supplemental ranges: <140 mg/dL before meals <180 mg/dL all other times of the day Specimen Anatomical Collection Method Collection Time Receive d Time (Source) Location / / Volume Laterality Blood specimen 07/11/2017 12:17 7 (specimen) AM EST 12:17 AM EST Yuan Webber MD POINT OF CARE TEST ORDERABLE S Performing Organization Address City/State/ZIP Code Phon e Number [address] POCT Glucose (07/10/2017 8:47 PM EST) athologist Signature POC Glucose 191 65 - 199 [place] mg/dL [facility] Comment: Supplemental ranges: <140 mg/dL before meals <180 mg/dL all other times of the day Specimen Anatomical Collection Method Collection Time Receive d Time (Source) Location / / Volume Laterality Blood specimen 07/10/2017 8:47 PM 017 8:47 (specimen) EST PM EST Yuan Webber MD POINT OF CARE TEST ORDERABLE S Performing Organization Address City/State/ZIP Code Phon e Number [address] POCT Glucose (07/10/2017 4:06 PM EST) athologist Signature POC Glucose 131 65 - 199 [facility] mg/dL [facility] Comment: Supplemental ranges: <140 mg/dL before meals <180 mg/dL all other times of the day Specimen Anatomical Collection Method Collection Time Receive d Time (Source) Location / / Volume Laterality Blood specimen 07/10/2017 4:06 PM 017 4:06 (specimen) EST PM EST Yuan Webber MD POINT OF CARE TEST ORDERABLE S Performing Organization Address City/[facility]/[place] [address] POCT Glucose (07/10/2017 3:08 PM EST) athologist Signature POC Glucose 151 65 - 199 [place] mg/dL [facility] Comment: Supplemental ranges: <140 mg/dL before meals <180 mg/dL all other times of the day Specimen Anatomical Collection Method Collection Time Receive d Time (Source) Location / / Volume Laterality Blood specimen 07/10/2017 3:08 PM 017 3:08 (specimen) EST PM EST Yuan Webber MD POINT OF CARE TEST ORDERABLE S Performing Organization Address City/[facility]/[place] [address] POCT Glucose (07/10/2017 2:25 PM EST) athologist Signature POC Glucose 146 65 - 199 [facility] mg/dL [facility] Comment: Supplemental ranges: <140 mg/dL before meals <180 mg/dL all other times of the day Specimen Anatomical Collection Method Collection Time Receive d Time (Source) Location / / Volume Laterality Blood specimen 07/10/2017 2:25 PM 017 2:25 (specimen) EST PM EST Yuan Webber MD POINT OF CARE TEST ORDERABLE S Performing Organization Address City/State/[place] [address] POCT Glucose (07/10/2017 1:23 PM EST) athologist Signature POC Glucose 166 65 - 199 [facility] mg/dL [facility] Comment: Supplemental ranges: <140 mg/dL before meals <180 mg/dL all other times of the day Specimen Anatomical Collection Method Collection Time Receive d Time (Source) Location / / Volume Laterality Blood specimen 07/10/2017 1:23 PM 017 1:23 (specimen) EST PM EST Yuan Webber MD POINT OF CARE TEST ORDERABLE S Performing Organization Address City/State/ZIP Code Phon e Number [address] POCT Glucose (07/10/2017 11:52 AM EST) P athologist Signature POC Glucose 157 65 - 199 [facility] mg/dL [facility] Comment: Supplemental ranges: <140 mg/dL before meals <180 mg/dL all other times of the day Specimen Anatomical Collection Method Collection Time Receive d Time (Source) Location / / Volume Laterality Blood specimen 07/10/2017 11:52 7 (specimen) AM EST 11:52 AM EST Yuan Webber MD POINT OF CARE TEST ORDERABLE S Performing Organization Address City/[facility]/ZIP Code Phon e Number [address] POCT Glucose (07/10/2017 11:01 AM EST) athologist Signature POC Glucose 158 65 - 199 [facility] mg/dL [facility] Comment: Supplemental ranges: <140 mg/dL before meals <180 mg/dL all other times of the day Specimen Anatomical Collection Method Collection Time Receive d Time (Source) Location / / Volume Laterality Blood specimen 07/10/2017 11:01 7 (specimen) AM EST 11:01 AM EST Yuan Webber MD POINT OF CARE TEST ORDERABLE S Performing Organization Address City/State/[place] [address] POCT Glucose (07/10/2017 9:54 AM EST) athologist Signature POC Glucose 160 65 - 199 [place] mg/dL [facility] Comment: Supplemental ranges: <140 mg/dL before meals <180 mg/dL all other times of the day Specimen Anatomical Collection Method Collection Time Receive d Time (Source) Location / / Volume Laterality Blood specimen 07/10/2017 9:54 AM 017 9:54 (specimen) EST AM EST Yuan Webber MD POINT OF CARE TEST ORDERABLE S Performing Organization Address City/State/ZIP Code Phon e Number [address] POCT Glucose (07/10/2017 8:58 AM EST) P athologist Signature POC Glucose 183 65 - 199 [place] mg/dL [facility] Comment: Supplemental ranges: <140 mg/dL before meals <180 mg/dL all other times of the day Specimen Anatomical Collection Method Collection Time Receive d Time (Source) Location / / Volume Laterality Blood specimen 07/10/2017 8:58 AM 017 8:58 (specimen) EST AM EST Yuan Webber MD POINT OF CARE TEST ORDERABLE S Performing Organization Address City/State/ZIP Code Phon e Number [address] POCT Glucose (07/10/2017 8:01 AM EST) athologist Signature POC Glucose 173 65 - 199 [place] mg/dL [facility] Comment: Supplemental ranges: <140 mg/dL before meals <180 mg/dL all other times of the day Specimen Anatomical Collection Method Collection Time Receive d Time (Source) Location / / Volume Laterality Blood specimen 07/10/2017 8:01 AM 017 8:01 (specimen) EST AM EST Yuan Webber MD POINT OF CARE TEST ORDERABLE S Performing Organization Address City/State/ZIP Code Phon e Number [address] POCT Glucose (07/10/2017 7:05 AM EST) athologist Signature POC Glucose 166 65 - 199 [place] mg/dL [facility] Comment: Supplemental ranges: <140 mg/dL before meals <180 mg/dL all other times of the day Specimen Anatomical Collection Method Collection Time Receive d Time (Source) Location / / Volume Laterality Blood specimen 07/10/2017 7:05 AM 017 7:05 (specimen) EST AM EST Yuan Webber MD POINT OF CARE TEST ORDERABLE S Performing Organization Address City/State/ZIP Code Phon e Number [address] POCT Glucose (07/10/2017 6:00 AM EST) P athologist Signature POC Glucose 162 65 - 199 [facility] Comment: Supplemental ranges: <140 mg/dL before meals <180 mg/dL all other times of the day Specimen Anatomical Collection Method Collection Time Receive d Time (Source) Location / / Volume Laterality Blood specimen 07/10/2017 6:00 AM 017 6:00 (specimen) EST AM EST Yuan Webber MD POINT OF CARE TEST ORDERABLE S Performing Organization Address City/State/ZIP Code Phon e Number [address] (ABNORMAL) Differential, Automated (07/10/2017 4:28 AM EST) Patholo gist Method Time Signature Neutrophils % 87.9 % [facility] Neutr Abs (ANC) 10.70 (H) 1.70 - [facility] 6.10 [facility] x10(3)/[facility] LABORATORY Lymphocytes % 3.9 % [facility] Lymphocytes Abs 0.5 (L) 0.9 - 3.2 [facility] x10(3)/[facility] LABORATORY Monocytes % 7.0 % [facility] Monocyte Abs 0.8 0.3 - 0.9 [facility] x10(3)/[facility] LABORATORY Eosinophils % 0.3 % [facility] Eosinophils Abs 0.0 0.0 - 0.4 [facility] x10(3)/[facility] LABORATORY Basophils % 0.2 % [facility] Basophils Abs 0.0 0.0 - 0.1 [facility] x10(3)/[facility] LABORATORY Immature Gran % 0.70 % [...] Organization Address City/State/[place] [address] (ABNORMAL) Hemogram (07/10/2017 4:28 AM EST) Analysis Performed At Patho logist Time Signature WBC 12.2 (H) 4.0 - 9.5 [facility] x10(3)/[facility] LABORATORY RBC 3.31 (L) 4.58 - [facility] 5.54 [facility] x10(6)/[facility] LABORATORY Hemoglobin 9.8 (L) 13.7 - [facility] 16.5 gm/dL [facility] Hematocrit 30.0 (L) 40.5 - [facility] 48.5 % [facility] MCV 90.6 82.9 - [facility] 93.1 [facility] LABORATORY MCH 29.6 27.5 - [facility] 32.1 pg [facility] MCHC 32.7 32.0 - [facility] 35.7 gm/dL [facility] Platelets 135 (L) 145 - 357 [facility] x10(3)/[facility] LABORATORY RDWSD 50.8 (H) 36.0 - [facility] 45.0 [facility] LABORATORY RDWCV 15.4 (H) 11.4 - [facility] 13.8 % [facility] MPV 10.0 7.6 - 12.9 [facility] LABORATORY nRBC % Auto 0.0 % [facility] nRBC Abs Auto 0.000 0.000 - [facility] 0.000 [facility] x10(3)/[facility] LABORATORY Specimen Anatomical Collection Method Collection Time Receive d Time (Source) Location / / Volume Laterality Blood specimen 07/10/2017 4:28 AM 017 4:36 (specimen) EST AM EST Resulting Agency Comment Spec In Lab Yuan Webber MD HEMATOLOGY ORDERABLES Performing Organization Address City/State/[place] [address] (ABNORMAL) Basic Metabolic Panel (non-fasting) (07/10/2017 4:28 AM EST) athologist Signature Glucose Lvl 178 65 - 199 [facility] mg/dL [facility] Comment: Diabetes: >=200 mg/dL plus [...] [facility] Estimated GFR 60 >=60 [facility] Comment: The reported eGFR should be multiplied b y 1.2 for patients. The MDRD is not an appropriate measure o f renal function for patients with body mass extremes or in patients with acute kidney failure. http://[employer]FriendCode/DHnkdep http://[employer]/DHMCnkf Specimen Anatomical Collection Method Collection Time Receive d Time (Source) Location / / Volume Laterality Blood specimen 07/10/2017 4:28 AM 017 4:36 (specimen) EST AM EST Resulting Agency Comment Spec In Lab Yuan Webber MD CHEMISTRY ORDERABLES Performing Organization Address City/State/[place] [address] POCT Glucose (07/10/2017 4:26 AM EST) athologist Signature POC Glucose 176 65 - 199 [facility] mg/dL [facility] Comment: Supplemental ranges: <140 mg/dL before meals <180 mg/dL all other times of the day Specimen Anatomical Collection Method Collection Time Receive d Time (Source) Location / / Volume Laterality Blood specimen 07/10/2017 4:26 AM 017 4:26 (specimen) EST AM EST Yuan Webber MD POINT OF CARE TEST ORDERABLE S Performing Organization Address City/State/[place] [address] (ABNORMAL) POCT Glucose (07/10/2017 3:06 AM EST) athologist Signature POC Glucose 204 (H) 65 - 199 [facility] mg/dL [facility] Comment: Supplemental ranges: <140 mg/dL before meals <180 mg/dL all other times of the day Specimen Anatomical Collection Method Collection Time Receive d Time (Source) Location / / Volume Laterality Blood specimen 07/10/2017 3:06 AM 017 3:06 (specimen) EST AM EST Yuan Webber MD POINT OF CARE TEST ORDERABLE S Performing Organization Address City/State/[place] [address] (ABNORMAL) POCT Glucose (07/10/2017 2:10 AM EST) athologist Signature POC Glucose 203 (H) 65 - 199 [place] mg/dL [facility] Comment: Supplemental ranges: <140 mg/dL before meals <180 mg/dL all other times of the day Specimen Anatomical Collection Method Collection Time Receive d Time (Source) Location / / Volume Laterality Blood specimen 07/10/2017 2:10 AM 017 2:10 (specimen) EST AM EST Yuan Webber MD POINT OF CARE TEST ORDERABLE S Performing Organization Address City/State/ZIP Code Phon e Number [address] POCT Glucose (07/10/2017 1:09 AM EST) P athologist Signature POC Glucose 196 65 - 199 [place] mg/dL [facility] Comment: Supplemental ranges: <140 mg/dL before meals <180 mg/dL all other times of the day Specimen Anatomical Collection Method Collection Time Receive d Time (Source) Location / / Volume Laterality Blood specimen 07/10/2017 1:09 AM 017 1:09 (specimen) EST AM EST Yuan Webber MD POINT OF CARE TEST ORDERABLE S Performing Organization Address City/State/[place] [address] POCT Glucose (07/10/2017 12:10 AM EST) athologist Signature POC Glucose 173 65 - 199 [place] mg/dL [facility] Comment: Supplemental ranges: <140 mg/dL before meals <180 mg/dL all other times of the day Specimen Anatomical Collection Method Collection Time Receive d Time (Source) Location / / Volume Laterality Blood specimen 07/10/2017 12:10 7 (specimen) AM EST 12:10 AM EST Yuan Webber MD POINT OF CARE TEST ORDERABLE S Performing Organization Address City/State/ZIP Code Phon e Number [address] POCT Glucose (07/09/2017 11:01 PM EST) P athologist Signature POC Glucose 140 65 - 199 [facility] mg/dL [facility] Comment: Supplemental ranges: <140 mg/dL before meals <180 mg/dL all other times of the day Specimen Anatomical Collection Method Collection Time Receive d Time (Source) Location / / Volume Laterality Blood specimen 07/09/2017 11:01 7 (specimen) PM EST 11:01 PM EST Yuan Webber MD POINT OF CARE TEST ORDERABLE S Performing Organization Address City/State/ZIP Code Phon e Number [address] POCT Glucose (07/09/2017 10:05 PM EST) athologist Signature POC Glucose 144 65 - 199 [place] mg/dL [facility] Comment: Supplemental ranges: <140 mg/dL before meals <180 mg/dL all other times of the day Specimen Anatomical Collection Method Collection Time Receive d Time (Source) Location / / Volume Laterality Blood specimen 07/09/2017 10:05 7 (specimen) PM EST 10:05 PM EST Yuan Webber MD POINT OF CARE TEST ORDERABLE S Performing Organization Address City/[facility]/ZIP Code Phon e Number [address] POCT Glucose (07/09/2017 9:31 PM EST) athologist Signature POC Glucose 121 65 - 199 [place] mg/dL [facility] Comment: Supplemental ranges: <140 mg/dL before meals <180 mg/dL all other times of the day Specimen Anatomical Collection Method Collection Time Receive d Time (Source) Location / / Volume Laterality Blood specimen 07/09/2017 9:31 PM 017 9:31 (specimen) EST PM EST Yuan Webber MD POINT OF CARE TEST ORDERABLE S Performing Organization Address City/State/[place] [address] POCT Glucose (07/09/2017 9:03 PM EST) athologist Signature POC Glucose 98 65 - 199 [place] mg/dL [facility] Comment: Supplemental ranges: <140 mg/dL before meals <180 mg/dL all other times of the day Specimen Anatomical Collection Method Collection Time Receive d Time (Source) Location / / Volume Laterality Blood specimen 07/09/2017 9:03 PM 017 9:03 (specimen) EST PM EST Yuan Webber MD POINT OF CARE TEST ORDERABLE S Performing Organization Address City/State/ZIP Code Phon e Number [address] POCT Glucose (07/09/2017 8:09 PM EST) athologist Signature POC Glucose 117 65 - 199 [place] mg/dL [facility] Comment: Supplemental ranges: <140 mg/dL before meals <180 mg/dL all other times of the day Specimen Anatomical Collection Method Collection Time Receive d Time (Source) Location / / Volume Laterality Blood specimen 07/09/2017 8:09 PM 017 8:09 (specimen) EST PM EST Yuan Webber MD POINT OF CARE TEST ORDERABLE S Performing Organization Address City/[facility]/ZIP Code Phon e Number [address] POCT Glucose (07/09/2017 5:40 PM EST) athologist Signature POC Glucose 155 65 - 199 [place] mg/dL [facility] Comment: Supplemental ranges: <140 mg/dL before meals <180 mg/dL all other times of the day Specimen Anatomical Collection Method Collection Time Receive d Time (Source) Location / / Volume Laterality Blood specimen 07/09/2017 5:40 PM 017 5:40 (specimen) EST PM EST Yuan Webber MD POINT OF CARE TEST ORDERABLE S Performing Organization Address City/[facility]/ZIP Code Phon e Number [address] POCT Glucose (07/09/2017 4:24 PM EST) athologist Signature POC Glucose 164 65 - 199 [place] mg/dL [facility] Comment: Supplemental ranges: <140 mg/dL before meals <180 mg/dL all other times of the day Specimen Anatomical Collection Method Collection Time Receive d Time (Source) Location / / Volume Laterality Blood specimen 07/09/2017 4:24 PM 017 4:24 (specimen) EST PM EST Yuan Webber MD POINT OF CARE TEST ORDERABLE S Performing Organization Address City/State/[place] [address] POCT Glucose (07/09/2017 3:19 PM EST) athologist Signature POC Glucose 166 65 - 199 [place] mg/dL [facility] Comment: Supplemental ranges: <140 mg/dL before meals <180 mg/dL all other times of the day Specimen Anatomical Collection Method Collection Time Receive d Time (Source) Location / / Volume Laterality Blood specimen 07/09/2017 3:19 PM 017 3:19 (specimen) EST PM EST Yuan Webber MD POINT OF CARE TEST ORDERABLE S Performing Organization Address City/[facility]/[place] [address] POCT Glucose (07/09/2017 2:26 PM EST) athologist Signature POC Glucose 179 65 - 199 [facility] mg/dL [facility] Comment: Supplemental ranges: <140 mg/dL before meals <180 mg/dL all other times of the day Specimen Anatomical Collection Method Collection Time Receive d Time (Source) Location / / Volume Laterality Blood specimen 07/09/2017 2:26 PM 017 2:26 (specimen) EST PM EST Yuan Webber MD POINT OF CARE TEST ORDERABLE S Performing Organization Address City/[facility]/ZIP Code [place] [address] (ABNORMAL) POCT Glucose (07/09/2017 1:29 PM EST) athologist Signature POC Glucose 210 (H) 65 - 199 [place]HAORY[place] mg/dL [facility] Comment: Supplemental ranges: <140 mg/dL before meals <180 mg/dL all other times of the day Specimen Anatomical Collection Method Collection Time Receive d Time (Source) Location / / Volume Laterality Blood specimen 07/09/2017 1:29 PM 017 1:29 (specimen) EST PM EST Yuan Webber MD POINT OF CARE TEST ORDERABLE S Performing Organization Address City/State/ZIP Code Phon e Number [address] POCT Glucose (07/09/2017 12:20 PM EST) P athologist Signature POC Glucose 172 65 - 199 [facility] mg/dL [facility] Comment: Supplemental ranges: <140 mg/dL before meals <180 mg/dL all other times of the day Specimen Anatomical Collection Method Collection Time Receive d Time (Source) Location / / Volume Laterality Blood specimen 07/09/2017 12:20 7 (specimen) PM EST 12:20 PM EST Yuan Webber MD POINT OF CARE TEST ORDERABLE S Performing Organization Address City/State/ZIP Code Phon e Number [address] POCT Glucose (07/09/2017 11:24 AM EST) P athologist Signature POC Glucose 156 65 - 199 [facility] mg/dL [facility] Comment: Supplemental ranges: <140 mg/dL before meals <180 mg/dL all other times of the day Specimen Anatomical Collection Method Collection Time Receive d Time (Source) Location / / Volume Laterality Blood specimen 07/09/2017 11:24 7 (specimen) AM EST 11:24 AM EST Yuan Webber MD POINT OF CARE TEST ORDERABLE S Performing Organization Address City/State/ZIP Code Phon e Number [place] [id number] POCT Glucose (07/09/2017 11:11 AM EST) P athologist Signature POC Glucose 172 65 - 199 [facility] mg/dL [facility] Comment: Supplemental ranges: <140 mg/dL before meals <180 mg/dL all other times of the day Specimen Anatomical Collection Method Collection Time Receive d Time (Source) Location / / Volume Laterality Blood specimen 07/09/2017 11:11 7 (specimen) AM EST 11:11 AM EST Yuan Webber MD POINT OF CARE TEST ORDERABLE S Performing Organization Address City/State/[place] [address] POCT Glucose (07/09/2017 10:08 AM EST) P athologist Signature POC Glucose 176 65 - 199 [place] mg/dL [facility] Comment: Supplemental ranges: <140 mg/dL before meals <180 mg/dL all other times of the day Specimen Anatomical Collection Method Collection Time Receive d Time (Source) Location / / Volume Laterality Blood specimen 07/09/2017 10:08 7 (specimen) AM EST 10:08 AM EST Yuan Webber MD POINT OF CARE TEST ORDERABLE S Performing Organization Address City/State/ZIP Code Phon e Number [address] POCT Glucose (07/09/2017 8:02 AM EST) athologist Signature POC Glucose 178 65 - 199 [facility] mg/dL [facility] Comment: Supplemental ranges: <140 mg/dL before meals <180 mg/dL all other times of the day Specimen Anatomical Collection Method Collection Time Receive d Time (Source) Location / / Volume Laterality Blood specimen 07/09/2017 8:02 AM 017 8:02 (specimen) EST AM EST Yuan Webber MD POINT OF CARE TEST ORDERABLE S Performing Organization Address City/State/ZIP Code Phon e Number [address] (ABNORMAL) BLOOD GAS 2 ARTERIAL (07/09/2017 5:37 AM EST) Analysis Performed At Patho logist Time Signature pH Art 7.36 7.35 - [facility] 7.45 [facility] pCO2 Art 38 35 - 45 [facility] mmHg [facility] pO2 Art 79 (L) 85 - 104 [facility] mmHg [facility] HCO3 Art 20.9 20.0 - [facility] 26.0 [facility] mmol/L [facility] BE Art -4.6 (L) -3.0 - 3.0 [facility] mmol/L [facility] Hgb Blood Gas 10.5 (L) 13.7 - [facility] 16.5 gm/dL [facility] O2HB Art 93.8 (L) 94.0 - [facility] 97.0 % [facility] COHB Art 0.3 % [facility] FIO2 Art 40 % [facility] PF Ratio Art 198 [facility] Specimen Anatomical Collection Method Collection Time Receive d Time (Source) Location / / Volume Laterality Blood specimen 07/09/2017 5:37 AM 017 5:37 (specimen) EST AM EST Yuan Webber MD CHEMISTRY ORDERABLES Performing Organization Address City/State/[place] [address] POCT Glucose (07/09/2017 3:27 AM EST) P athologist Signature POC Glucose 192 65 - 199 [facility] mg/dL [facility] Comment: Supplemental ranges: <140 mg/dL before meals <180 mg/dL all other times of the day Specimen Anatomical Collection Method Collection Time Receive d Time (Source) Location / / Volume Laterality Blood specimen 07/09/2017 3:27 AM 017 3:27 (specimen) EST AM EST Yuan Webber MD POINT OF CARE TEST ORDERABLE S Performing Organization Address City/State/[place] [address] (ABNORMAL) Basic Metabolic Panel (non-fasting) (07/09/2017 2:30 AM EST) athologist Signature Glucose Lvl 179 65 - 199 [facility] mg/dL [facility] Comment: Diabetes: >=200 mg/dL plus [...] or in patients with acute kidney failure. http://[employer]/DHnkdep http://[employer]/DHMCnkf Specimen Anatomical Collection Method Collection Time Receive d Time (Source) Location / / Volume Laterality Blood specimen Venous Draw / 07/09/2017 2:30 AM 2016 2:42 (specimen) Unknown EST AM EST Resulting Agency Comment Spec In Lab Yuan Webber MD CHEMISTRY ORDERABLES Performing Organization Address City/[facility]/[place] [address] (ABNORMAL) Potassium (07/09/2017 2:30 AM EST) P athologist Signature Potassium 5.1 (H) 3.5 - 5.0 [place] mmol/L [facility] Comment: Please note: ??Patients with [...] Webber MD CHEMISTRY ORDERABLES Performing Organization Address City/[facility]/[place] [address] (ABNORMAL) Hemogram (07/09/2017 2:30 AM EST) Analysis Performed At Patho logist Time Signature WBC 12.5 (H) 4.0 - 9.5 [place] x10(3)/[facility] LABORATORY RBC 3.38 (L) 4.58 - [place] 5.54 [facility] x10(6)/[facility] LABORATORY Hemoglobin 10.1 (L) 13.7 - [place] 16.5 gm/dL [facility] Hematocrit 30.3 (L) 40.5 - [place] [facility] 48.5 % [facility] MCV 89.6 82.9 - [place] 93.1 fL [facility] MCH 29.9 27.5 - [place] 32.1 pg [facility] MCHC 33.3 32.0 - [place] 35.7 gm/dL [facility] Platelets 127 (L) 145 - 357 [place] [facility] x10(3)/[facility] LABORATORY RDWSD 49.3 (H) 36.0 - [facility] 45.0 [facility] LABORATORY RDWCV 15.2 (H) 11.4 - [facility] 13.8 % [facility] MPV 9.9 7.6 - 12.9 [facility] LABORATORY nRBC % Auto 0.0 % [facility] nRBC Abs Auto 0.000 0.000 - [place] 0.000 [facility] x10(3)/[facility] LABORATORY Specimen Anatomical Collection Method Collection Time Receive d Time (Source) Location / / Volume Laterality Blood specimen 07/09/2017 2:30 AM 017 2:41 (specimen) EST AM EST Resulting Agency Comment Spec In Lab Yuan Webber MD HEMATOLOGY ORDERABLES Performing Organization Address City/[facility]/ZIP Code Phon e Number [address] POCT Glucose (07/09/2017 2:10 AM EST) P athologist Signature POC Glucose 169 65 - 199 [facility]dL [facility] Comment: Supplemental ranges: <140 mg/dL before meals <180 mg/dL all other times of the day Specimen Anatomical Collection Method Collection Time Receive d Time (Source) Location / / Volume Laterality Blood specimen 07/09/2017 2:10 AM 017 2:10 (specimen) EST AM EST Yuan Webber MD POINT OF CARE TEST ORDERABLE S Performing Organization Address City/[facility]/ZIP Code Phon e Number [address] POCT Glucose (07/09/2017 1:01 AM EST) P athologist Signature POC Glucose 173 65 - 199 [facility] mg/dL [facility] LABORATORY Comment: Supplemental ranges: <140 mg/dL before meals <180 mg/dL all other times of the day Specimen Anatomical Collection Method Collection Time Receive d Time (Source) Location / / Volume Laterality Blood specimen 07/09/2017 1:01 AM 017 1:01 (specimen) EST AM EST Yuan Webber MD POINT OF CARE TEST ORDERABLE S Performing Organization Address City/[facility]/[place] [address] Blood culture (07/09/2017 12:40 AM EST) [facility] gist Method Time Signature Blood Culture No growth BARBARA DAVIS at 5 days. [facility] LABORATORY Specimen Anatomical Collection Method Collection Time Receive d Time (Source) Location / / Volume Laterality Blood specimen STRUCTURE OF RIGHT 07/09/2017 12:40 3:58 (specimen) UPPER LIMB / AM EST AM EST Unknown Resulting Agency Comment Spec In Lab Yuan Webber MD MICROBIOLOGY - BLOOD ORDERAB LES Performing Organization Address City/[facility]/[place] [address] Blood culture (07/09/2017 12:30 AM EST) [facility] gist Method Time Signature Blood Culture No growth BARBARA DAVIS at 5 days. [facility] LABORATORY Specimen Anatomical Collection Method Collection Time Receive d Time (Source) Location / / Volume Laterality Blood specimen STRUCTURE OF LEFT 07/09/2017 12:30 1211/2016 3:59 (specimen) UPPER LIMB / AM EST AM EST Unknown Resulting Agency Comment Spec In Lab Yuan Webber MD MICROBIOLOGY - BLOOD ORDERAB LES Performing Organization Address City/[facility]/[place] [address] (ABNORMAL) Urinalysis Microscopic Exam [...] 2 /LPF [facility] LABORATORY Gran Cast UA 1 (H) <=0 /LPF [facility] LABORATORY Uric Ac Bianca Rare (A) None /HPF [facility] LABORATORY Specimen (Source) Anatomical Collection Method Collection Time Re ceived Time Location / / Volume Laterality Urine specimen 07/09/2017 12: 7 obtained via AM EST 12:39 AM EST indwelling urinary catheter (specimen) Resulting Agency Comment Spec In Lab Yuan Webber MD URINE ORDERABLES Performing Organization Address City/[facility]/[place] [address] (ABNORMAL) Urinalysis with reflex Culture (07/09/2017 12:05 AM EST) [employer] Method Time Signature Glucose UA Negative Negative [facility] mg/dL [facility] LABORATORY Protein UA 30 (A) Negative [facility] mg/dL [facility] LABOR[facility]ORY Bilirubin UA Negative Negative [facility] mg/dL [facility] LABORATORY Comment: Clinical correlation required for [...] [facility] LABORATORY Nitrite UA Negative Negative [facility] LABORATORY Leukocytes UA Negative Negative [facility] LABORATORY Appearance UA Hazy (A) Clear [facility] LABORATORY Spec [place] UA 1.025 1.002 - 1.030 [facility] LABORATORY Color UA Yellow Yellow [facility] LABORATORY Culture Reflexed No [facility] LABORATORY Specimen (Source) Anatomical Collection Method Collection Time Re ceived Time Location / / Volume Laterality Urine specimen 07/09/2017 12:05 7 obtained via AM EST 12:39 AM EST indwelling urinary catheter (specimen) Resulting Agency Comment Spec In Lab Yuan Webber MD URINE ORDERABLES Performing Organization Address City/[facility]/[place] [address] POCT Glucose (07/08/2017 11:01 PM EST) athologist Signature POC Glucose 191 65 - 199 [facility] mg/dL [facility] Comment: Supplemental ranges: <140 mg/dL before meals <180 mg/dL all other times of the day Specimen Anatomical Collection Method Collection Time Receive d Time (Source) Location / / Volume Laterality Blood specimen 07/08/2017 11:01 7 (specimen) PM EST 11:01 PM EST Yuan Webber MD POINT OF CARE TEST ORDERABLE S Performing Organization Address City/State/ZIP Code Phon e Number [address] POCT Glucose (07/08/2017 10:04 PM EST) athologist Signature POC Glucose 198 65 - 199 [facility]/dL [facility] LAB[facility] Comment: Supplemental ranges: <140 mg/dL before meals <180 mg/dL all other times of the day Specimen Anatomical Collection Method Collection Time Receive d Time (Source) Location / / Volume Laterality Blood specimen 07/08/2017 10:04 7 (specimen) PM EST 10:04 PM EST Yuan Webber MD POINT OF CARE TEST ORDERABLE S Performing Organization Address City/State/[place] [address] Prepare Albumin 5% in [...] Address City/State/ZIP Code Phon e Number [address] POCT Glucose (07/08/2017 8:28 PM EST) athologist Signature POC Glucose 195 65 - 199 [place]BARA [place] mg/dL [facility] LABOR[facility]ORY Comment: Supplemental ranges: <140 mg/dL before meals <180 mg/dL all other times of the day Specimen Anatomical Collection Method Collection Time Receive d Time (Source) Location / / Volume Laterality Blood specimen 07/08/2017 8:28 PM 017 8:28 (specimen) EST PM EST Yuan Webber MD POINT OF CARE TEST ORDERABLE S Performing Organization Address City/State/[place] [address] (ABNORMAL) POCT Glucose (07/08/2017 7:13 PM EST) athologist Signature POC Glucose 220 (H) 65 - 199 [facility] mg/dL [facility] LABOR[facility]ORY Comment: Supplemental ranges: <140 mg/dL before meals <180 mg/dL all other times of the day Specimen Anatomical Collection Method Collection Time Receive d Time (Source) Location / / Volume Laterality Blood specimen 07/08/2017 7:13 PM 017 7:13 (specimen) EST PM EST Yuan Webber MD POINT OF CARE TEST ORDERABLE S Performing Organization Address City/State/[place] [address] POCT Glucose (07/08/2017 5:04 PM EST) athologist Signature POC Glucose 147 65 - 199 [facility] mg/dL [facility] LABOR[facility] Comment: Supplemental ranges: <140 mg/dL before meals <180 mg/dL all other times of the day Specimen Anatomical Collection Method Collection Time Receive d Time (Source) Location / / Volume Laterality Blood specimen 07/08/2017 5:04 PM 017 5:04 (specimen) EST PM EST Yuan Webber MD POINT OF CARE TEST ORDERABLE S Performing Organization Address City/State/[place] [address] (ABNORMAL) BLOOD GAS 2 ARTERIAL (07/08/2017 4:13 PM EST) Analysis Performed At Patho logist Time Signature pH Art 7.38 7.35 - [facility] 7.45 [facility] LABORATORY pCO2 Art 36 35 - 45 [facility] LABORATORY pO2 Art 91 85 - 104 [facility] LABORATORY HCO3 Art 20.9 20.0 - [facility] 26.0 [facility] mmol/LDS HOSPITAL LABORATORY BE Art -4.2 (L) -3.0 - 3.0 [facility] mmol/L [facility] LABORATORY Hgb Blood Gas 11.7 (L) 13.7 - [facility] 16.5 gm/dL [facility] LABORATORY O2HB Art 95.1 94.0 - [facility] 97.0 % [facility] LABORATORY COHB Art 0.6 % [facility] FIO2 Art 40 % [facility] LABORATORY PF Ratio Art 228 [facility] LABORATORY Specimen Anatomical Collection Method Collection Time Receive d Time (Source) Location / / Volume Laterality Blood specimen 07/08/2017 4:13 PM 017 4:13 (specimen) EST PM EST Yuan Webber MD CHEMISTRY ORDERABLES Performing Organization Address City/State/ZIP Code Phon e Number [address] POCT Glucose (07/08/2017 4:01 PM EST) athologist Signature POC Glucose 148 65 - 199 BARBARA [place]HAORYAN mg/dL [facility] LABORATORY Comment: Supplemental ranges: <140 mg/dL before meals <180 mg/dL all other times of the day Specimen Anatomical Collection Method Collection Time Receive d Time (Source) Location / / Volume Laterality Blood specimen 07/08/2017 4:01 PM 017 4:01 (specimen) EST PM EST Yuan Webber MD POINT OF CARE TEST ORDERABLE S Performing Organization Address City/[facility]/[place] [address] POCT Glucose (07/08/2017 3:21 PM EST) athologist Signature POC Glucose 118 65 - 199 BARBARA RYAN mg/dL [facility] LABOR[facility]ORY Comment: Supplemental ranges: <140 mg/dL before meals <180 mg/dL all other times of the day Specimen Anatomical Collection Method Collection Time Receive d Time (Source) Location / / Volume Laterality Blood specimen 07/08/2017 3:21 PM 017 3:21 (specimen) EST PM EST Yuan Webber MD POINT OF CARE TEST ORDERABLE S Performing Organization Address City/State/[place] [address] POCT Glucose (07/08/2017 2:01 PM EST) athologist Signature POC Glucose 129 65 - 199 BARBARA ZHAORYAN mg/dL [facility] LABOR[facility] Comment: Supplemental ranges: <140 mg/dL before meals <180 mg/dL all other times of the day Specimen Anatomical Collection Method Collection Time Receive d Time (Source) Location / / Volume Laterality Blood specimen 07/08/2017 2:01 PM 017 2:01 (specimen) EST PM EST Yuan Webber MD POINT OF CARE TEST ORDERABLE S Performing Organization Address City/State/ZIP Code Phon e Number [address] POCT Glucose (07/08/2017 11:53 AM EST) athologist Signature POC Glucose 156 65 - 199 BARBARA RYAN mg/dL [facility] LABOR[facility]ORY Comment: Supplemental ranges: <140 mg/dL before meals <180 mg/dL all other times of the day Specimen Anatomical Collection Method Collection Time Receive d Time (Source) Location / / Volume Laterality Blood specimen 07/08/2017 11:53 7 (specimen) AM EST 11:53 AM EST Yuan Webber MD POINT OF CARE TEST ORDERABLE S Performing Organization Address City/[facility]/ZIP Code Phon e Number [address] POCT Glucose (07/08/2017 11:04 AM EST) athologist Signature POC Glucose 181 65 - 199 BARBARA ZHAORYAN mg/dL [facility] LABOR[facility]ORY Comment: Supplemental ranges: <140 mg/dL before meals <180 mg/dL all other times of the day Specimen Anatomical Collection Method Collection Time Receive d Time (Source) Location / / Volume Laterality Blood specimen 07/08/2017 11:04 7 (specimen) AM EST 11:04 AM EST Yuan Webber MD POINT OF CARE TEST ORDERABLE S Performing Organization Address City/[facility]/[place] [address] (ABNORMAL) POCT Glucose (07/08/2017 9:24 AM EST) athologist Signature POC Glucose 203 (H) 65 - 199 BARBARA RYAN mg/dL [facility] LAB[facility] Comment: Supplemental ranges: <140 mg/dL before meals <180 mg/dL all other times of the day Specimen Anatomical Collection Method Collection Time Receive d Time (Source) Location / / Volume Laterality Blood specimen 07/08/2017 9:24 AM 017 9:24 (specimen) EST AM EST Yuan Webber MD POINT OF CARE TEST ORDERABLE S Performing Organization Address City/State/[facility] [address] APTT (07/08/2017 8:40 AM [...] Webber MD HEMATOLOGY ORDERABLES Performing Organization Address [facility] [address] (ABNORMAL) Prothrombin Time (07/08/2017 8:40 AM EST) athologist Signature PT 15.6 (H) 11.8 - 14.0 [facility] [...] Webber MD HEMATOLOGY ORDERABLES Performing Organization Address [facility] [address] (ABNORMAL) POCT Glucose (07/08/2017 7:38 AM EST) athologist Signature POC Glucose 232 (H) 65 - 199 [facility] mg/dL [facility] LAB[facility] Comment: Supplemental ranges: <140 mg/dL before meals <180 mg/dL all other times of the day Specimen Anatomical Collection Method Collection Time Receive d Time (Source) Location / / Volume Laterality Blood specimen 07/08/2017 7:38 AM 017 7:38 (specimen) EST AM EST Yuan Webber MD POINT OF CARE TEST ORDERABLE S Performing Organization Address City/State/[place] [address] (ABNORMAL) POCT Glucose (07/08/2017 7:07 AM EST) athologist Signature POC Glucose 234 (H) 65 - 199 [facility] mg/dL [facility] Comment: Supplemental ranges: <140 mg/dL before meals <180 mg/dL all other times of the day Specimen Anatomical Collection Method Collection Time Receive d Time (Source) Location / / Volume Laterality Blood specimen 07/08/2017 7:07 AM 017 7:07 (specimen) EST AM EST Yuan Webber MD POINT OF CARE TEST ORDERABLE S Performing Organization Address City/State/[place] [address] (ABNORMAL) POCT Glucose (07/08/2017 6:04 AM EST) athologist Signature POC Glucose 225 (H) 65 - 199 [facility] mg/dL [facility] Comment: Supplemental ranges: <140 mg/dL before meals <180 mg/dL all other times of the day Specimen Anatomical Collection Method Collection Time Receive d Time (Source) Location / / Volume Laterality Blood specimen 07/08/2017 6:04 AM 017 6:04 (specimen) EST AM EST Yuan Webber MD POINT OF CARE TEST ORDERABLE S Performing Organization Address City/State/[place] [address] (ABNORMAL) POCT Glucose (07/08/2017 5:31 AM EST) athologist Signature POC Glucose 216 (H) 65 - 199 [facility] mg/dL [facility] Comment: Supplemental ranges: <140 mg/dL before meals <180 mg/dL all other times of the day Specimen Anatomical Collection Method Collection Time Receive d Time (Source) Location / / Volume Laterality Blood specimen 07/08/2017 5:31 AM 017 5:31 (specimen) EST AM EST Yuan Webber MD POINT OF CARE TEST ORDERABLE S Performing Organization Address City/State/[place] [address] (ABNORMAL) POCT Glucose (07/08/2017 4:52 AM EST) athologist Signature POC Glucose 257 (H) 65 - 199 [facility] mg/dL [facility] Comment: Supplemental ranges: <140 mg/dL before meals <180 mg/dL all other times of the day Specimen Anatomical Collection Method Collection Time Receive d Time (Source) Location / / Volume Laterality Blood specimen 07/08/2017 4:52 AM 017 4:52 (specimen) EST AM EST Daphne Shahid MD POINT OF CARE TEST ORDERABLE S Performing Organization Address City/[facility]/[place] [address] (ABNORMAL) BLOOD GAS 2 ARTERIAL (07/08/2017 4:04 AM EST) Analysis Performed At Patho logist Time Signature pH Art 7.30 (L) 7.35 - [facility] 7.45 [facility] LABORATORY pCO2 Art 41 35 - 45 [facility] mmHg [facility] LABORATORY pO2 Art 83 (L) 85 - 104 [facility] mmHg [facility] LABORATORY HCO3 Art 19.6 (L) 20.0 - [facility] 26.0 [facility] mmol/L [facility] LABORATORY BE Art -6.8 (L) -3.0 - 3.0 [facility] mmol/L [facility] LABORATORY Hgb Blood Gas 12.2 (L) 13.7 - [facility] 16.5 gm/dL [facility] LABORATORY O2HB Art 93.5 (L) 94.0 - [facility] 97.0 % [facility] LABORATORY COHB Art 0.4 % [facility] [...] WB 4.4 (Critical) 0.5 - 2.2 mmol/L [facility] LABORATORY Comment: Noted by surgical instrument technician. FIO2 Art 40 % [facility] LABORAT[facility] PF Ratio Art 208 [facility] LABOR[facility]ORY Specimen Anatomical Collection Method Collection Time Receive d Time (Source) Location / / Volume Laterality Blood specimen 07/08/2017 4:04 AM 017 4:04 (specimen) EST AM EST Daphne Shahid MD CHEMISTRY ORDERABLES Performing Organization Address City/State/[place] [address] Scan, Peripheral Blood (07/08/2017 [...] Organization Address City/State/[place] [address] (ABNORMAL) Differential, Automated (07/08/2017 4:00 AM EST) [employer] Method Time Signature Neutrophils % 85.4 % [facility] LABORATORY Neutr Abs (ANC) 16.07 (H) 1.70 - [facility] 6.10 [facility] x10(3)/[facility] LABORATORY Lymphocytes % 3.5 % [facility] LABORATORY Lymphocytes Abs 0.6 (L) 0.9 - 3.2 [facility] x10(3)/[facility] LABORATORY Monocytes % 10.4 % [facility] LABORATORY Monocyte Abs 2.0 (H) 0.3 - 0.9 [facility] x10(3)/[facility] LABORATORY Eosinophils % 0.0 % [facility] LABORATORY Eosinophils Abs 0.0 0.0 - 0.4 [facility] x10(3)/[facility] LABORATORY Basophils % 0.1 % [facility] LABORATORY Basophils Abs 0.0 0.0 - 0.1 [facility] x10(3)/[facility] LABORATORY Immature Gran % 0.60 % [...] Organization Address City/State/[place] [address] (ABNORMAL) Hemogram (07/08/2017 4:00 AM EST) Analysis Performed At Patho logist Time Signature WBC 18.8 (H) 4.0 - 9.5 [facility] x10(3)/[facility] LABORATORY RBC 4.00 (L) 4.58 - [facility] RYAN 5.54 MEMORIAL x10(6)/[facility] LABORATORY Hemoglobin 11.9 (L) 13.7 - [facility] 16.5 gm/dL [facility] LABORATORY Hematocrit 35.9 (L) 40.5 - [facility] 48.5 % [facility] LABORATORY MCV 89.8 82.9 - [facility] 93.1 [facility] LABORATORY MCH 29.8 27.5 - [facility] 32.1 pg [facility] LABORATORY MCHC 33.1 32.0 - [place] RY[facility] 35.7 gm/dL [facility] LABORATORY Platelets 232 145 - 357 [facility] x10(3)/[facility] LABORATORY RDWSD 47.6 (H) 36.0 - [place] RYAN 45.0 [facility] LABORATORY RDWCV 14.5 (H) 11.4 - [facility] 13.8 % [facility] LABORATORY MPV 9.5 7.6 - 12.9 [facility] LABORATORY nRBC % Auto 0.0 % [facility] LABORATORY nRBC Abs Auto 0.000 0.000 - [place] RYAN 0.000 [facility] x10(3)/[facility] LABORATORY Specimen Anatomical Collection Method Collection Time Receive d Time (Source) Location / / Volume Laterality Blood specimen 07/08/2017 4:00 AM 017 4:09 (specimen) EST AM EST Resulting Agency Comment Spec In Lab Yuan Webber MD HEMATOLOGY ORDERABLES Performing Organization Address City/State/[place] [address] (ABNORMAL) Electrolytes panel (07/08/2017 4:00 AM EST) P athologist Signature Sodium 139 135 - 145 [facility] mmol/L [facility] LABORATORY Potassium 4.7 3.5 - 5.0 [facility] mmol/L [facility] LABORATORY Comment: result [id number] Please note: [...] - 15 mmol/L [facility] LABORATORY Specimen Anatomical Collection Method Collection Time Receive d Time (Source) Location / / Volume Laterality Blood specimen 07/08/2017 4:00 AM 017 4:10 (specimen) EST AM EST Resulting Agency Comment Spec In Lab Yuan Webber MD CHEMISTRY ORDERABLES Performing Organization Address City/State/[place] [address] (ABNORMAL) Cardiac Enzymes (LEB/CGP) (07/08/2017 4:00 AM EST) athologist [facility] Troponin-T 1.88 (H) 0.00 - [facility] 0.00 ng/mL [facility] LABORATORY Comment: The 99th percentile for [...] additional sample may be indicated. Reference: Third [place] Definition of Myocardial Infarction. Journal of the [place] [employer] 2012;60:1581-98 CK, Total 413 [...] Organization Address City/State/[place] [address] (ABNORMAL) Glucose, fasting (07/08/2017 4:00 AM EST) P athologist Signature Glucose 287 (H) 65 - 99 [facility] Fasting mg/dL [facility] LABORATORY Comment: ?Fasting* Glucose Interpretive C [...] of Diabetes Mellitus, Position Statement from the [place] [employer]. ??Diabete s Care, Volume 33, Supplement 1, Jul 2009 Specimen Anatomical Collection Method Collection Time Receive d Time (Source) Location / / Volume Laterality Blood specimen 07/08/2017 4:00 AM 017 4:09 (specimen) EST AM EST Resulting Agency Comment Spec In Lab Yuan Webber MD CHEMISTRY ORDERABLES Performing Organization Address City/[facility]/[place] [address] (ABNORMAL) Creatinine (07/08/2017 4:00 AM EST) Analysis Performed At Patho logist Time Signature Creatinine 1.55 (H) 0.80 - [facility] 1.[facility] mg/dL [facility] LABORATORY Estimated GFR 44 (L) >=60 [facility] LABORATORY Comment: The reported eGFR should be multiplied b y 1.2 for patients. The MDRD is not an appropriate measure o f renal function for patients with body mass extremes or in patients with acute kidney failure. http://[employer]/DHnkdep http://[employer]/DHMCnkf Specimen Anatomical Collection Method Collection Time Receive d Time (Source) Location / / Volume Laterality Blood specimen 07/08/2017 4:00 AM 017 4:09 (specimen) EST AM EST Resulting Agency Comment Spec In Lab Yuan Webber MD CHEMISTRY ORDERABLES Performing Organization Address City/[facility]/[place] [address] BUN (07/08/2017 4:00 AM EST) P athologist Signature BUN 16 10 - 20 [facility] mg/dL [facility] LABORATORY Specimen Anatomical Collection Method Collection Time Receive d Time (Source) Location / / Volume Laterality Blood specimen 07/08/2017 4:00 AM 017 4:09 (specimen) EST AM EST Resulting Agency Comment Spec In Lab Yuan Webber MD CHEMISTRY ORDERABLES Performing Organization Address City/[facility]/[place] [address] (ABNORMAL) POCT Glucose (07/08/2017 3:00 AM EST) P athologist Signature POC Glucose 273 (H) 65 - 199 [facility] mg/dL [facility] Comment: Supplemental ranges: <140 mg/dL before meals <180 mg/dL all other times of the day Specimen Anatomical Collection Method Collection Time Receive d Time (Source) Location / / Volume Laterality Blood specimen 07/08/2017 3:00 AM 017 3:00 (specimen) EST AM EST Daphne Shahid MD POINT OF CARE TEST ORDERABLE S Performing Organization Address City/[facility]/[place] [address] (ABNORMAL) POCT Glucose (07/08/2017 1:57 AM EST) athologist Signature POC Glucose 288 (H) 65 - 199 [facility] mg/dL [facility] Comment: Supplemental ranges: <140 mg/dL before meals <180 mg/dL all other times of the day Specimen Anatomical Collection Method Collection Time Receive d Time (Source) Location / / Volume Laterality Blood specimen 07/08/2017 1:57 AM 017 1:57 (specimen) EST AM EST Daphne Shahid MD POINT OF CARE TEST ORDERABLE S Performing Organization Address City/[facility]/[place] [address] (ABNORMAL) POCT Glucose (07/08/2017 1:01 AM EST) athologist Signature POC Glucose 315 (H) 65 - 199 [facility] mg/dL [facility] Comment: Supplemental ranges: <140 mg/dL before meals <180 mg/dL all other times of the day Specimen Anatomical Collection Method Collection Time Receive d Time (Source) Location / / Volume Laterality Blood specimen 07/08/2017 1:01 AM 017 1:01 (specimen) EST AM EST Daphne Shahid MD POINT OF CARE TEST ORDERABLE S Performing Organization Address City/State/[place] [address] (ABNORMAL) BLOOD GAS 2 ARTERIAL (07/08/2017 12:09 AM EST) athologist Signature pH Art 7.26 7.35 - [facility] (Critical) 7.45 [facility] Comment: Noted by surgical instrument technician. pCO2 Art 41 35 - 45 mmHg [facility] pO2 Art 96 85 - 104 mmHg [facility] HCO3 Art 17.7 (L) 20.0 - 26.0 mmol/L [facility] BE Art -9.4 (L) -3.0 - 3.0 mmol/L [facility] Hgb Blood Gas 12.4 (L) 13.7 - 16.5 gm/dL [facility] O2HB Art 94.7 94.0 - 97.0 % [facility] COHB Art 0.2 % [facility] [...] WB 7.6 (Critical) 0.5 - 2.2 mmol/L [facility] Comment: Noted by surgical instrument technician. FIO2 Art 40 % [facility] [...] Address City/State/[place] [address] (ABNORMAL) POCT Glucose (07/07/2017 10:56 PM EST) athologist Signature POC Glucose 292 (H) 65 - 199 [facility] mg/dL [facility] Comment: Supplemental ranges: <140 mg/dL before meals <180 mg/dL all other times of the day Specimen Anatomical Collection Method Collection Time Receive d Time (Source) Location / / Volume Laterality Blood specimen 07/07/2017 10:56 7 (specimen) PM EST 10:56 PM EST Daphne Shahid MD POINT OF CARE TEST ORDERABLE S Performing Organization Address City/[facility]/[place] [address] (ABNORMAL) BLOOD GAS 2 ARTERIAL (07/07/2017 10:04 PM EST) athologist Signature pH Art 7.22 7.35 - [facility] (Critical) 7.45 [facility] Comment: Noted by surgical instrument technician. pCO2 Art 42 35 - 45 mmHg [facility] pO2 Art 94 85 - 104 mmHg [facility] HCO3 Art 16.9 (L) 20.0 - 26.0 mmol/L [facility] BE Art -10.7 (L) -3.0 - 3.0 mmol/L [facility] Hgb Blood Gas 13.0 (L) 13.7 - 16.5 gm/dL [facility] O2HB Art 93.8 (L) 94.0 - 97.0 % [facility] COHB Art 0.7 % [facility] Comment: Nonsmokers: 0.5-1.5% COHB Smokers: Variable, but usually less than 10% Toxic: 20-30% COHB Lethal: Greater than 60% COHB METHB Art 0.7 <=1.5 % [facility] Na Whole Blood 140 135 - 145 mmol/L [facility] K Whole Blood 3.3 (L) [...] WB 8.2 (Critical) 0.5 - 2.2 mmol/L [facility] Comment: Noted by surgical instrument technician. FIO2 Art 40 % [facility] PF Ratio Art 235 [facility] Specimen Anatomical Collection Method Collection Time Receive d Time (Source) Location / / Volume Laterality Blood specimen 07/07/2017 10:04 7 (specimen) PM EST 10:04 PM EST Daphne Shahid MD CHEMISTRY ORDERABLES Performing Organization Address City/[facility]/ZIP Code Phon e Number [address] (ABNORMAL) Hemoglobin (07/07/2017 10:00 PM EST) athologist Signature Hemoglobin 12.8 (L) 13.7 - [facility] 16.5 gm/dL [facility] Specimen Anatomical Collection Method Collection Time Receive d Time (Source) Location / / Volume Laterality Blood specimen 07/07/2017 10:00 7 (specimen) PM EST 10:13 PM EST Resulting Agency Comment Spec In Lab Yuan Webber MD HEMATOLOGY ORDERABLES Performing Organization Address City/State/ZIP Code Phon e Number [address] (ABNORMAL) Potassium (07/07/2017 10:00 PM EST) P athologist Signature Potassium 3.4 (L) 3.5 - 5.0 [facility]/L [facility] Comment: Please note: ??Patients with [...] Webber MD CHEMISTRY ORDERABLES Performing Organization Address City/[facility]/ZIP Code Phon e Number [address] (ABNORMAL) POCT Glucose (07/07/2017 8:49 PM EST) athologist [facility] POC Glucose 241 (H) 65 - 199 [facility] mg/dL [facility] Comment: Supplemental ranges: <140 mg/dL before meals <180 mg/dL all other times of the day Specimen Anatomical Collection Method Collection Time Receive d Time (Source) Location / / Volume Laterality Blood specimen 07/07/2017 8:49 PM 017 8:49 (specimen) EST PM EST Daphne Shahid MD POINT OF CARE TEST ORDERABLE S Performing Organization Address City/[facility]/[place] [address] Prepare Albumin 5% in 250 mL (07/07/2017 8:03 PM EST) athologist [facility] Dispensed? Yes [facility] Specimen Anatomical Collection Method Collection Time Receive d Time (Source) Location / / Volume Laterality Blood specimen No Charge / 07/07/2017 8:03 PM 017 8:04 (specimen) Unknown EST PM EST Resulting Agency Comment Spec In Lab Michael BROWN BLOOD BANK ORDERABLES Performing Organization Address City/[facility]/[place] [address] EKG 12 Lead (07/07/2017 7:17 PM EST) Component Value Ref Range Test Analysis Performed Pathologis t Method Time At Signature Ventricular rate 75 BPM MUSE SYSTEM Atrial Rate 75 BPM MUSE SYSTEM P-R Interval 168 ms MUSE SYSTEM QRS Duration 104 ms MUSE SYSTEM Q-T Interval 462 ms MUSE SYSTEM QTC Calculated 515 ms MUSE SYSTEM (Bezet) Calculated P [place] 52 degrees MUSE SYSTEM Calculated R [place] -40 degrees MUSE SYSTEM Calculated T [place] 39 degrees MUSE SYSTEM INTERPRETATION Normal sinus [...] 7.21 7.35 - [facility] (Critical) 7.45 [facility] Comment: Noted by surgical instrument technician. pCO2 Art 50 (H) 35 - 45 mmHg [facility] pO2 Art 238 (H) 85 - 104 mmHg [facility] HCO3 Art 19.8 (L) 20.0 - 26.0 mmol/L [facility] BE Art -8.1 (L) -3.0 - 3.0 mmol/L [facility] Hgb Blood Gas 12.8 (L) 13.7 - 16.5 gm/dL [facility] O2HB Art 97.5 (H) 94.0 - 97.0 % [facility] COHB Art 0.5 % [facility] Comment: Nonsmokers: 0.5-1.5% COHB Smokers: Variable, but usually less than 10% Toxic: 20-30% COHB Lethal: Greater than 60% COHB METHB Art 0.7 <=1.5 % [facility] Na Whole Blood 140 135 - 145 mmol/L [facility] K Whole Blood 3.0 (Critical) 3.5 - 5.0 mmol/L [facility] Comment: Noted by surgical instrument technician. Please note: Patients with WBC [...] WB 4.9 (Critical) 0.5 - 2.2 mmol/L [facility] Comment: Noted by surgical instrument technician. FIO2 Art 100 % [facility] PF Ratio Art 238 [facility] Specimen Anatomical Collection Method Collection Time Receive d Time (Source) Location / / Volume Laterality Blood specimen 07/07/2017 6:57 PM 017 6:57 (specimen) EST PM EST Daphne Shahid MD CHEMISTRY ORDERABLES Performing Organization Address City/State/[place] [address] (ABNORMAL) BLOOD GAS 2 ARTERIAL (07/07/2017 5:31 PM EST) P athologist Signature pH Art 7.29 7.35 - [facility] (Critical) 7.45 [facility] Comment: Noted by surgical instrument technician. pCO2 Art 48 (H) 35 - 45 mmHg [facility] pO2 Art 137 (H) 85 - 104 mmHg [facility] HCO3 Art 22.4 20.0 - 26.0 mmol/L [facility] BE Art -4.3 (L) -3.0 - 3.0 mmol/L [facility] Hgb Blood Gas 10.0 (L) 13.7 - 16.5 gm/dL [facility] O2HB Art 97.3 (H) 94.0 - 97.0 % [facility] COHB Art 0.3 % [facility] Comment: Nonsmokers: 0.5-1.5% COHB Smokers: Variable, but usually less than 10% Toxic: 20-30% COHB Lethal: Greater than 60% COHB METHB Art 0.3 <=1.5 % [facility] Na Whole Blood 132 (L) 135 - 145 mmol/L [facility] [...] WB 3.1 (H) 0.5 - 2.2 mmol/L [facility] Specimen Anatomical Collection Method Collection Time Receive d Time (Source) Location / / Volume Laterality Blood specimen 07/07/2017 5:31 PM 017 5:31 (specimen) EST PM EST Daphne Shahid MD CHEMISTRY ORDERABLES Performing Organization Address City/State/[place] [address] Fibrinogen (07/07/2017 5:30 PM EST) P athologist Signature Fibrinogen 224 180 - 510 [facility] mg/dL [facility] Comment: Called by: JEET, Read [...] Perez MD HEMATOLOGY ORDERABLES Performing Organization Address [facility] Phon e Number [address] APTT (07/07/2017 5:30 PM [...] Perez MD HEMATOLOGY ORDERABLES Performing Organization Address [facility] [address] (ABNORMAL) Prothrombin Time (07/07/2017 5:30 PM EST) P athologist Signature PT 19.0 (H) 11.8 - 14.0 [facility] [...] Organization Address City/State/[place] [address] (ABNORMAL) Hemogram (07/07/2017 5:30 PM EST) P athologist Signature WBC 19.6 (H) 4.0 - 9.5 [facility] x10(3)/[facility] LABORATORY RBC 3.08 (L) 4.58 - [facility] 5.54 [facility] x10(6)/[facility] LABORATORY Hemoglobin 9.2 (L) 13.7 - [facility] 16.5 gm/dL [facility] Hematocrit 28.0 (L) 40.5 - [facility] 48.5 % [facility] Comment: This result has been called to MONICA MORAN by DONALD GROSSMAN on 07 07 2017 at 1759, and has been read back. MCV 90.9 82.9 - 93.1 [facility] LABORATORY MCH 29.9 27.5 - 32.1 pg [facility] MCHC 32.9 32.0 - 35.7 gm/dL [facility] Platelets 155 145 - 357 x10(3)/[facility] LABORATORY RDWSD 46.5 (H) 36.0 - 45.0 [facility] LABORATORY RDWCV 14.1 (H) 11.4 - 13.8 % [facility] MPV 9.5 7.6 - 12.9 [facility] LABORATORY nRBC % Auto 0.0 % [facility] nRBC Abs Auto 0.000 0.000 - 0.000 x10(3)/[facility] LABORATORY Specimen Anatomical Collection Method Collection Time Receive d Time (Source) Location / / Volume Laterality Blood specimen 07/07/2017 5:30 PM 017 5:34 (specimen) EST PM EST Resulting Agency Comment Spec In Lab Yifan Perez MD HEMATOLOGY ORDERABLES Performing Organization Address City/[facility]/ZIP Code Phon e Number [address] Prepare Platelets, Apheresis (07/07/2017 5:00 PM EST) P athologist Signature Dispensed? Yes [facility] Specimen Anatomical Collection Method Collection Time Receive d Time (Source) Location / / Volume Laterality Blood specimen 07/07/2017 5:00 PM 017 4:58 (specimen) EST PM EST Daphne Shahid MD BLOOD BANK ORDERABLES Performing Organization Address City/[facility]/ZIP Code Phon e Number [address] Platelet count (07/07/2017 4:55 PM EST) athologist Signature Platelets 177 145 - 357 [facility] x10(3)/[facility] LABORATORY Plat Immature 1.5 0.0 - 7.4 [facility] % % [facility] Comment: Limitation of the Immature Platelet Frac tion (IPF)-May be less reliable when the platelet count is less than 06y242/u L due to statistical imprecision. The IPF [...] in a decreased state of production. References: [employer] The Clinical Value of the Immature Platelet Fraction (IPF) in Cell Recovery Document Number 10-1143 12/2010 [employer] The Role of the Imm ature [...] City/State/ZIP Code Phon e Number [place] [id number] (ABNORMAL) Hemoglobin and Hematocrit, blood (07/07/2017 4:55 PM EST) P athologist Signature Hemoglobin 9.1 (L) 13.7 - 16.5 [facility] gm/dL [facility] Comment: This result has been [...] Organization Address City/State/[place] [address] (ABNORMAL) BLOOD GAS 2 ARTERIAL (07/07/2017 4:38 PM EST) Analysis Performed At Patho logist Time Signature pH Art 7.37 7.35 - [facility] 7.45 [facility] pCO2 Art 44 35 - 45 [facility] mmHg [facility] pO2 Art 322 (H) 85 - 104 [facility] mmHg [facility] HCO3 Art 24.9 20.0 - [facility] 26.0 [facility] mmol/L [facility]ORY BE Art -0.4 -3.0 - 3.0 [facility] mmol/L [facility] Hgb Blood Gas 10.1 (L) 13.7 - [facility] 16.5 gm/dL [facility] O2HB Art 98.7 (H) 94.0 - [facility] 97.0 % [facility] COHB Art 0.1 % [facility] Comment: Nonsmokers: 0.5-1.5% COHB Smokers: Variable, but usually less than 10% Toxic: 20-30% COHB Lethal: Greater than 60% COHB METHB Art 0.3 <=1.5 % [facility] Na Whole Blood 130 (L) 135 - 145 mmol/L [facility] K Whole Blood 5.7 (H) 3.5 - 5.0 mmol/L [facility] Comment: Please note: Patients with WBC >100,000 may have falsely elevated Potassium levels. Contact the Clinical Chemistry L aboratory if there are any questions. ICa Whole Blood 0.89 (Critical) 1.15 - 1.33 mmol/L [facility] Comment: Noted by surgical instrument technician. Note: ??Total bilirubin higher than [...] Organization Address City/State/[place] [address] (ABNORMAL) BLOOD GAS 2 VENOUS (07/07/2017 4:06 PM EST) Analysis Performed At Patho logist Time Signature pH Cody 7.31 (L) 7.32 - [facility] 7.42 [facility] pCO2 Cody 47 41 - 51 [facility]ATORY pO2 Cody 53 (H) 25 - 40 [facility]ORY HCO3 Cody 22.7 mmol/L [facility] BE Cody -3.7 mmol/L [facility] Hgb Blood Gas 10.2 (L) 13.7 - [facility] 16.5 gm/dL [facility] O2HB Cody 81.0 % [facility] COHB Cody 1.0 % [facility] Comment: Nonsmokers: 0.5-1.5% COHB Smokers: Variable, but usually less than 10% Toxic: 20-30% COHB Lethal: Greater than 60% COHB METHB Cody 0.3 <=1.5 % [facility] Na Whole Blood 132 (L) 135 - 145 mmol/L [facility] K Whole Blood 5.3 (H) 3.5 - 5.0 mmol/L [facility] Comment: Please note: Patients with WBC >100,000 may have falsely elevated Potassium levels. Contact the Clinical Chemistry L aboratory if there are any questions. ICa Whole Blood 0.90 (Critical) 1.15 - 1.33 mmol/L [facility] Comment: Noted by surgical instrument technician. Note: ??Total bilirubin higher than [...] [facility] BGas Source Venous [facility] Specimen Anatomical Collection Method Collection Time Receive d Time (Source) Location / / Volume Laterality Blood specimen 07/07/2017 4:06 PM 017 4:06 (specimen) EST PM EST Daphne Shahid MD CHEMISTRY ORDERABLES Performing Organization Address City/State/[place] [address] (ABNORMAL) BLOOD GAS 2 ARTERIAL (07/07/2017 4:05 PM EST) Analysis Performed At Patho logist Time Signature pH Art 7.36 7.35 - [facility] 7.45 [facility] pCO2 Art 40 35 - 45 [facility]ORY pO2 Art 282 (H) 85 - 104 [facility]ORY HCO3 Art 22.1 20.0 - [facility] 26.0 [facility] mmol/L [facility] BE Art -3.4 (L) -3.0 - 3.0 [facility] mmol/L [facility] Hgb Blood Gas 10.2 (L) 13.7 - [facility] 16.5 gm/dL [facility] O2HB Art 98.4 (H) 94.0 - [facility] 97.0 % [facility] COHB Art 0.3 % [facility] Comment: Nonsmokers: 0.5-1.5% COHB Smokers: Variable, but usually less than 10% Toxic: 20-30% COHB Lethal: Greater than 60% COHB METHB Art 0.3 <=1.5 % [facility] Na Whole Blood 131 (L) 135 - 145 mmol/L [facility] K Whole Blood 5.4 (H) 3.5 - 5.0 mmol/L [facility] Comment: Please note: Patients with WBC >100,000 may have falsely elevated Potassium levels. Contact the Clinical Chemistry L aboratory if there are any questions. ICa Whole Blood 0.86 (Critical) 1.15 - 1.33 mmol/L [facility] Comment: Noted by surgical instrument technician. Note: ??Total bilirubin higher than [...] Organization Address City/State/[place] [address] (ABNORMAL) BLOOD GAS 2 ARTERIAL (07/07/2017 2:29 PM EST) Analysis Performed At Patho logist Time Signature pH Art 7.43 7.35 - [facility] 7.45 [facility] pCO2 Art 36 35 - 45 [facility] mmHg [facility] pO2 Art 221 (H) 85 - 104 [facility] LABORATORY HCO3 Art 23.2 20.0 - [facility] 26.0 [facility] mmol/L [facility] LABORATORY BE Art -1.2 -3.0 - 3.0 [facility] mmol/L [facility] Hgb Blood Gas 13.9 13.7 - [facility] 16.5 gm/dL [facility] O2HB Art 97.8 (H) 94.0 - [facility] 97.0 % [facility] COHB Art 1.1 % [facility] [...] Shahid MD CHEMISTRY ORDERABLES Performing Organization Address City/[facility]/ZIP Code Phon e Number [address] Prepare Coag Factors (Non-Hemophilia) (07/07/2017 1:25 PM EST) P athologist Signature Dispensed? Yes [facility] Specimen Anatomical Collection Method Collection Time Receive d Time (Source) Location / / Volume Laterality Blood specimen 07/07/2017 1:25 PM 017 1:21 (specimen) EST PM EST Daphne Shahid MD BLOOD BANK ORDERABLES Performing Organization Address [facility]/ZIP Code Phon e Number [address] Prepare RBC (07/07/2017 1:10 PM EST) P athologist Signature Dispensed? Yes [facility] Specimen Anatomical Collection Method Collection Time Receive d Time (Source) Location / / Volume Laterality Blood specimen 07/07/2017 1:10 PM 017 1:05 (specimen) EST PM EST Daphne Shahid MD BLOOD BANK ORDERABLES Performing Organization Address City/[facility]/[place] [address] POCT Glucose (07/07/2017 11:56 AM EST) P athologist Signature POC Glucose 188 65 - 199 [facility] mg/dL [facility] Comment: Supplemental ranges: <140 mg/dL before meals <180 mg/dL all other times of the day Specimen Anatomical Collection Method Collection Time Receive d Time (Source) Location / / Volume Laterality Blood specimen 07/07/2017 11:56 7 (specimen) AM EST 11:56 AM EST Daphne Shahid MD POINT OF CARE TEST ORDERABLE S Performing Organization Address City/[facility]/ZIP Code Phon e Number [address] POCT Glucose (07/07/2017 11:05 AM EST) athologist Signature POC Glucose 168 65 - 199 [facility] mg/dL [facility] Comment: Supplemental ranges: <140 mg/dL before meals <180 mg/dL all other times of the day Specimen Anatomical Collection Method Collection Time Receive d Time (Source) Location / / Volume Laterality Blood specimen 07/07/2017 11:05 7 (specimen) AM EST 11:05 AM EST Daphne Shahid MD POINT OF CARE TEST ORDERABLE S Performing Organization Address City/State/ZIP Code Phon e Number [address] POCT Glucose (07/07/2017 10:02 AM EST) athologist Signature POC Glucose 191 65 - 199 [facility] mg/dL [facility] Comment: Supplemental ranges: <140 mg/dL before meals <180 mg/dL all other times of the day Specimen Anatomical Collection Method Collection Time Receive d Time (Source) Location / / Volume Laterality Blood specimen 07/07/2017 10:02 7 (specimen) AM EST 10:02 AM EST Daphne Shahid MD POINT OF CARE TEST ORDERABLE S Performing Organization Address City/State/ZIP Code Phon e Number [address] POCT Glucose (07/07/2017 7:53 AM EST) athologist Signature POC Glucose 178 65 - 199 [facility] mg/dL [facility] Comment: Supplemental ranges: <140 mg/dL before meals <180 mg/dL all other times of the day Specimen Anatomical Collection Method Collection Time Receive d Time (Source) Location / / Volume Laterality Blood specimen 07/07/2017 7:53 AM 017 7:53 (specimen) EST AM EST Daphne Shahid MD POINT OF CARE TEST ORDERABLE S Performing Organization Address City/State/[place] [address] POCT Glucose (07/07/2017 7:03 AM EST) athologist Signature POC Glucose 188 65 - 199 [facility] mg/dL [facility] Comment: Supplemental ranges: <140 mg/dL before meals <180 mg/dL all other times of the day Specimen Anatomical Collection Method Collection Time Receive d Time (Source) Location / / Volume Laterality Blood specimen 07/07/2017 7:03 AM 017 7:03 (specimen) EST AM EST Daphne Shahid MD POINT OF CARE TEST ORDERABLE S Performing Organization Address City/State/ZIP Code Phon e Number [address] (ABNORMAL) POCT Glucose (07/07/2017 6:17 AM EST) athologist Signature POC Glucose 207 (H) 65 - 199 [facility] [place] mg/dL [facility] Comment: Supplemental ranges: <140 mg/dL before meals <180 mg/dL all other times of the day Specimen Anatomical Collection Method Collection Time Receive d Time (Source) Location / / Volume Laterality Blood specimen 07/07/2017 6:17 AM 017 6:17 (specimen) EST AM EST Daphne Shahid MD POINT OF CARE TEST ORDERABLE S Performing Organization Address City/[facility]/ZIP Code Phon e Number [address] Differential, Automated (07/07/2017 5:15 AM EST) athologist [facility] Neutrophils % 69.7 % [facility] Neutr Abs (ANC) 5.32 1.70 - [facility] 6.10 [facility] x10(3)/[facility] LABORATORY Lymphocytes % 16.3 % [facility] Lymphocytes Abs 1.2 0.9 - 3.2 [facility] x10(3)/[facility] LABORATORY Monocytes % 10.5 % [facility] Monocyte Abs 0.8 0.3 - 0.9 [facility] x10(3)/[facility] LABORATORY Eosinophils % 2.5 % [facility] Eosinophils Abs 0.2 0.0 - 0.4 [facility] x10(3)/[facility] LABORATORY Basophils % 0.7 % [facility] Basophils Abs 0.0 0.0 - 0.1 [facility] x10(3)/[facility] LABORATORY Immature Gran % 0.30 % [place] [...] Melisa Gran Abs 0.02 0.00 - 0.04 x10(3)/[facility] LABORATORY Specimen Anatomical Collection Method Collection Time Receive d Time (Source) Location / / Volume Laterality Blood specimen 07/07/2017 5:15 AM 017 5:34 (specimen) EST AM EST Resulting Agency Comment Spec In Lab Daphne Shahid MD HEMATOLOGY ORDERABLES Performing Organization Address City/State/[place] [address] (ABNORMAL) Hemogram (07/07/2017 5:15 AM EST) Analysis Performed At Patho logist Time Signature WBC 7.6 4.0 - 9.5 [facility] x10(3)/[facility] LABORATORY RBC 4.82 4.58 - [facility] 5.54 [facility] x10(6)/[facility] LABORATORY Hemoglobin 14.4 13.7 - [facility] 16.5 gm/dL [facility] Hematocrit 42.1 40.5 - [facility] 48.5 % [facility] MCV 87.3 82.9 - [facility] 93.1 [facility] LABORATORY MCH 29.9 27.5 - [facility] 32.1 pg [facility] MCHC 34.2 32.0 - [facility] 35.7 gm/dL [facility] Platelets 188 145 - 357 [facility] x10(3)/[facility] LABORATORY RDWSD 45.1 (H) 36.0 - [facility] 45.0 [facility] LABORATORY RDWCV 14.3 (H) 11.4 - [facility] [place] 13.8 % [facility] MPV 9.4 7.6 - 12.9 [facility] LABORATORY nRBC % Auto 0.0 % [facility]ORY nRBC Abs Auto 0.000 0.000 - [place] 0.000 [facility] x10(3)/[facility] LABORATORY Specimen Anatomical Collection Method Collection Time Receive d Time (Source) Location / / Volume Laterality Blood specimen 07/07/2017 5:15 AM 017 5:34 (specimen) EST AM EST Resulting Agency Comment Spec In Lab Daphne Shahid MD HEMATOLOGY ORDERABLES Performing Organization Address City/State/ZIP Code Phon e Number [address] (ABNORMAL) APTT (07/07/2017 5:15 [...] Address City/State/ZIP Code Phon e Number [address] Magnesium (07/07/2017 5:15 AM EST) P athologist Signature Magnesium 0.94 0.69 - 1.07 [facility] mmol/L [facility] Specimen Anatomical Collection Method Collection Time Receive d Time (Source) Location / / Volume Laterality Blood specimen 07/07/2017 5:15 AM 017 5:34 (specimen) EST AM EST Resulting Agency Comment Spec In Lab Daphne Shahid MD CHEMISTRY ORDERABLES Performing Organization Address City/[facility]/[place] [address] (ABNORMAL) Basic Metabolic Panel (non-fasting) (07/07/2017 5:15 AM EST) P athologist Signature Glucose Lvl 203 (H) 65 - 199 [facility] mg/dL [facility] Comment: Diabetes: >=200 mg/dL plus [...] or in patients with acute kidney failure. [email or web address]/DHnkdep [email or web address]/DHMCnkf Specimen Anatomical Collection Method Collection Time Receive d Time (Source) Location / / Volume Laterality Blood specimen 07/07/2017 5:15 AM 017 5:34 (specimen) EST AM EST Resulting Agency Comment Spec In Lab Daphne Shahid MD CHEMISTRY ORDERABLES Performing Organization Address City/[facility]/[place] [address] (ABNORMAL) Cardiac Enzymes (LEB/CGP) (07/07/2017 5:15 AM EST) athologist Signature Troponin-T 2.07 (H) 0.00 - [place] [place] 0.00 ng/mL [facility] Comment: The 99th percentile for [...] additional sample may be indicated. Reference: Third [place] Definition of Myocardial Infarction. Journal of the [employer] 2012;60:1581-98 CK, Total 88 0 - 200 unit/L [facility] Specimen Anatomical Collection Method Collection Time Receive d Time (Source) Location / / Volume Laterality Blood specimen 07/07/2017 5:15 AM 017 5:34 (specimen) EST AM EST Resulting Agency Comment Spec In Lab Daphne Shahid MD CHEMISTRY ORDERABLES Performing Organization Address City/State/ZIP Code Phon e Number [address] POCT Glucose (07/07/2017 5:01 AM EST) athologist Signature POC Glucose 182 65 - 199 [facility]dL [facility] Comment: Supplemental ranges: <140 mg/dL before meals <180 mg/dL all other times of the day Specimen Anatomical Collection Method Collection Time Receive d Time (Source) Location / / Volume Laterality Blood specimen 07/07/2017 5:01 AM 017 5:01 (specimen) EST AM EST Daphne Shahid MD POINT OF CARE TEST ORDERABLE S Performing Organization Address City/State/[place] [address] POCT Glucose (07/07/2017 4:08 AM EST) athologist Signature POC Glucose 199 65 - 199 [place] mg/dL [facility] Comment: Supplemental ranges: <140 mg/dL before meals <180 mg/dL all other times of the day Specimen Anatomical Collection Method Collection Time Receive d Time (Source) Location / / Volume Laterality Blood specimen 07/07/2017 4:08 AM 017 4:08 (specimen) EST AM EST Daphne Shahid MD POINT OF CARE TEST ORDERABLE S Performing Organization Address City/State/ZIP Code Phon e Number [address] POCT Glucose (07/07/2017 3:03 AM EST) athologist Signature POC Glucose 188 65 - 199 [facility] [place] mg/dL [facility] Comment: Supplemental ranges: <140 mg/dL before meals <180 mg/dL all other times of the day Specimen Anatomical Collection Method Collection Time Receive d Time (Source) Location / / Volume Laterality Blood specimen 07/07/2017 3:03 AM 017 3:03 (specimen) EST AM EST Daphne Shahid MD POINT OF CARE TEST ORDERABLE S Performing Organization Address City/State/[place] [address] (ABNORMAL) POCT Glucose (07/07/2017 2:08 AM EST) P athologist Signature POC Glucose 200 (H) 65 - 199 [place] mg/dL [facility] Comment: Supplemental ranges: <140 mg/dL before meals <180 mg/dL all other times of the day Specimen Anatomical Collection Method Collection Time Receive d Time (Source) Location / / Volume Laterality Blood specimen 07/07/2017 2:08 AM 017 2:08 (specimen) EST AM EST Daphne Shahid MD POINT OF CARE TEST ORDERABLE S Performing Organization Address City/State/[place] [address] (ABNORMAL) POCT Glucose (07/07/2017 1:31 AM EST) P athologist Signature POC Glucose 209 (H) 65 - 199 [facility] mg/dL [facility] Comment: Supplemental ranges: <140 mg/dL before meals <180 mg/dL all other times of the day Specimen Anatomical Collection Method Collection Time Receive d Time (Source) Location / / Volume Laterality Blood specimen 07/07/2017 1:31 AM 017 1:31 (specimen) EST AM EST Daphne Shahid MD POINT OF CARE TEST ORDERABLE S Performing Organization Address City/State/[place] [address] XR Chest PA or [...] 161 65 - 199 [facility] mg/dL [facility] Comment: Supplemental ranges: <140 mg/dL before meals <180 mg/dL all other times of the day Specimen Anatomical Collection Method Collection Time Receive d Time (Source) Location / / Volume Laterality Blood specimen 07/07/2017 12:07 7 (specimen) AM EST 12:07 AM EST Daphne Shahid MD POINT OF CARE TEST ORDERABLE S Performing Organization Address City/[facility]/[place] [address] (ABNORMAL) APTT (07/07/2017 12:00 [...] Address City/State/ZIP Code Phon e Number [address] POCT Glucose (07/06/2017 9:55 PM EST) athologist Signature POC Glucose 109 65 - 199 [facility] mg/dL [facility] Comment: Supplemental ranges: <140 mg/dL before meals <180 mg/dL all other times of the day Specimen Anatomical Collection Method Collection Time Receive d Time (Source) Location / / Volume Laterality Blood specimen 07/06/2017 9:55 PM 017 9:55 (specimen) EST PM EST Daphne Shahid MD POINT OF CARE TEST ORDERABLE S Performing Organization Address City/[facility]/[place] [address] POCT Glucose (07/06/2017 9:04 PM EST) athologist Signature POC Glucose 120 65 - 199 [facility] mg/dL [facility] Comment: Supplemental ranges: <140 mg/dL before meals <180 mg/dL all other times of the day Specimen Anatomical Collection Method Collection Time Receive d Time (Source) Location / / Volume Laterality Blood specimen 07/06/2017 9:04 PM 017 9:04 (specimen) EST PM EST Daphne Shahid MD POINT OF CARE TEST ORDERABLE S Performing Organization Address City/State/[place] [address] POCT Glucose (07/06/2017 7:45 PM EST) athologist Signature POC Glucose 158 65 - 199 [facility] [place] mg/dL [facility] Comment: Supplemental ranges: <140 mg/dL before meals <180 mg/dL all other times of the day Specimen Anatomical Collection Method Collection Time Receive d Time (Source) Location / / Volume Laterality Blood specimen 07/06/2017 7:45 PM 017 7:45 (specimen) EST PM EST Daphne Shahid MD POINT OF CARE TEST ORDERABLE S Performing Organization Address City/State/ZIP Code Phon e Number [address] Potassium (07/06/2017 7:40 PM EST) athologist Signature Potassium 3.9 3.5 - 5.0 [facility] mmol/L [facility] Comment: Please note: ??Patients with [...] Organization Address City/State/[place] [address] (ABNORMAL) Cardiac Enzymes (LEB/CGP) (07/06/2017 7:40 PM EST) athologist Signature Troponin-T 2.27 (H) 0.00 - [facility] 0.00 ng/mL [facility] Comment: The 99th percentile for [...] additional sample may be indicated. Reference: Third [place] Definition of Myocardial Infarction. Journal of the [place] [employer] 2012;60:1581-98 CK, Total 93 0 - 200 unit/L [facility]ORY Specimen Anatomical Collection Method Collection Time Receive d Time (Source) Location / / Volume Laterality Blood specimen 07/06/2017 7:40 PM 017 7:52 (specimen) EST PM EST Resulting Agency Comment Spec In Lab Daphne Shahid MD CHEMISTRY ORDERABLES Performing Organization Address City/[facility]/[place] [address] (ABNORMAL) POCT Glucose (07/06/2017 7:13 PM EST) P athologist Signature POC Glucose 200 (H) 65 - 199 [facility] [place] mg/dL [facility] Comment: Supplemental ranges: <140 mg/dL before meals <180 mg/dL all other times of the day Specimen Anatomical Collection Method Collection Time Receive d Time (Source) Location / / Volume Laterality Blood specimen 07/06/2017 7:13 PM 017 7:13 (specimen) EST PM EST Daphne Shahid MD POINT OF CARE TEST ORDERABLE S Performing Organization Address [facility] [place] [address] (ABNORMAL) APTT (07/06/2017 6:15 [...] Shahid MD HEMATOLOGY ORDERABLES Performing Organization Address City/[facility]/ZIP [facility] [place] [place] [address] (ABNORMAL) POCT Glucose (07/06/2017 6:03 PM EST) P athologist Signature POC Glucose 236 (H) 65 - 199 [facility] mg/dL [facility] Comment: Supplemental ranges: <140 mg/dL before meals <180 mg/dL all other times of the day Specimen Anatomical Collection Method Collection Time Receive d Time (Source) Location / / Volume Laterality Blood specimen 07/06/2017 6:03 PM 017 6:03 (specimen) EST PM EST Daphne Shahid MD POINT OF CARE TEST ORDERABLE S Performing Organization Address City/State/[place] [address] (ABNORMAL) POCT Glucose (07/06/2017 5:01 PM EST) P athologist Signature POC Glucose 235 (H) 65 - 199 [place] mg/dL [facility] Comment: Supplemental ranges: <140 mg/dL before meals <180 mg/dL all other times of the day Specimen Anatomical Collection Method Collection Time Receive d Time (Source) Location / / Volume Laterality Blood specimen 07/06/2017 5:01 PM 017 5:01 (specimen) EST PM EST Daphne Shahid MD POINT OF CARE TEST ORDERABLE S Performing Organization Address City/State/[place] [address] (ABNORMAL) POCT Glucose (07/06/2017 4:06 PM EST) P athologist Signature POC Glucose 202 (H) 65 - 199 [place] mg/dL [facility] Comment: Supplemental ranges: <140 mg/dL before meals <180 mg/dL all other times of the day Specimen Anatomical Collection Method Collection Time Receive d Time (Source) Location / / Volume Laterality Blood specimen 07/06/2017 4:06 PM 017 4:06 (specimen) EST PM EST Daphne Shahid MD POINT OF CARE TEST ORDERABLE S Performing Organization Address City/State/[place] [address] POCT Glucose (07/06/2017 2:59 PM EST) P athologist Signature POC Glucose 178 65 - 199 [place] [facility] mg/dL [facility] Comment: Supplemental ranges: <140 mg/dL before meals <180 mg/dL all other times of the day Specimen Anatomical Collection Method Collection Time Receive d Time (Source) Location / / Volume Laterality Blood specimen 07/06/2017 2:59 PM 017 2:59 (specimen) EST PM EST Daphne Shahid MD POINT OF CARE TEST ORDERABLE S Performing Organization Address City/State/[place] [address] (ABNORMAL) Cardiac Enzymes (LEB/CGP) (07/06/2017 2:10 PM EST) athologist Signature Troponin-T 2.34 (H) 0.00 - [facility] 0.00 ng/mL [facility] Comment: The 99th percentile for [...] additional sample may be indicated. Reference: Third [place] Definition of Myocardial Infarction. Journal of the [employer] 2012;60:1581-98 CK, Total 101 0 - 200 unit/L [facility] Specimen Anatomical Collection Method Collection Time Receive d Time (Source) Location / / Volume Laterality Blood specimen 07/06/2017 2:10 PM 017 2:26 (specimen) EST PM EST Resulting Agency Comment Spec In Lab Daphne Shahid MD CHEMISTRY ORDERABLES Performing Organization Address City/State/ZIP Code Phon e Number [address] POCT Glucose (07/06/2017 2:08 PM EST) athologist Signature POC Glucose 192 65 - 199 [place] [facility] mg/dL [facility] Comment: Supplemental ranges: <140 mg/dL before meals <180 mg/dL all other times of the day Specimen Anatomical Collection Method Collection Time Receive d Time (Source) Location / / Volume Laterality Blood specimen 07/06/2017 2:08 PM 017 2:08 (specimen) EST PM EST Daphne Shahid MD POINT OF CARE TEST ORDERABLE S Performing Organization Address City/[facility]/ZIP Code Phon e Number [address] POCT Glucose (07/06/2017 1:04 PM EST) athologist Signature POC Glucose 162 65 - 199 [place] [facility] mg/dL [facility] Comment: Supplemental ranges: <140 mg/dL before meals <180 mg/dL all other times of the day Specimen Anatomical Collection Method Collection Time Receive d Time (Source) Location / / Volume Laterality Blood specimen 07/06/2017 1:04 PM 017 1:04 (specimen) EST PM EST Daphne Shahid MD POINT OF CARE TEST ORDERABLE S Performing Organization Address City/[facility]/ZIP Code [place] [address] POCT Glucose (07/06/2017 12:05 PM EST) athologist Signature POC Glucose 196 65 - 199 [place] [facility] mg/dL [facility] Comment: Supplemental ranges: <140 mg/dL before meals <180 mg/dL all other times of the day Specimen Anatomical Collection Method Collection Time Receive d Time (Source) Location / / Volume Laterality Blood specimen 07/06/2017 12:05 7 (specimen) PM EST 12:05 PM EST Daphne Shahid MD POINT OF CARE TEST ORDERABLE S Performing Organization Address City/State/[place] [address] EKG 12 Lead (07/06/2017 12:00 PM EST) Component Value Ref Range Test Analysis Performed Pathologis t Method Time At Signature Ventricular rate 91 BPM MUSE SYSTEM Atrial Rate 91 BPM MUSE SYSTEM P-R Interval 140 ms MUSE SYSTEM QRS Duration 94 ms MUSE SYSTEM Q-T Interval 394 ms MUSE SYSTEM QTC Calculated 484 ms MUSE SYSTEM (Bezet) Calculated P [place] 36 degrees MUSE SYSTEM Calculated R [place] -19 degrees MUSE SYSTEM Calculated T [place] 104 degrees MUSE SYSTEM INTERPRETATION Normal sinus rhythm MUSE SYSTEM 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) ST & T wave abnormality, consider lateral ischemia Abnormal ECG When compared with ECG of 05-JUL-2017 20:39, No significant change was found Confirmed by MD Luci, Taurus Braun ([id number]) on 07/06/2017 5:07:33 PM Specimen Anatomical Collection Method Collection Time Receive d Time (Source) Location / / Volume Laterality 07/06/2017 12:00 07/06/2017 5:07 PM EST PM EST Daphne Shahid MD ECG ORDERABLES Performing Organization Address City/State/ZIP Code Phon e Number MUSE SYSTEM ABORH Recheck Status (07/06/2017 12:00 PM EST) [employer] Method Time Signature ABORH Type Completed [facility] LABORATORY Specimen Anatomical Collection Method Collection Time Receive d Time (Source) Location / / Volume Laterality Blood specimen 07/06/2017 12:00 7 (specimen) PM EST 12:24 PM EST Resulting Agency Comment Spec In Lab Daphne Shahid MD BLOOD BANK ORDERABLES Performing Organization Address City/State/[place] [address] Antibody screen (07/06/2017 12:00 PM EST) [employer] Method Time Signature Ab Screen Negative [facility] LABORATORY Expires at 07/09/2017 [place] Z[place]ORYAN [id number] on: [facility] Specimen Anatomical Collection Method Collection Time Receive d Time (Source) Location / / Volume Laterality Blood specimen 07/06/2017 12:00 7 (specimen) PM EST 12:24 PM EST Resulting Agency Comment Spec In Lab Daphne Shahid MD BLOOD BANK ORDERABLES Performing Organization Address City/[facility]/ZIP Code Phon e Number [address] ABO/Rh Typing (07/06/2017 12:00 PM EST) P athologist Signature ABORh Type O Pos [facility] LABORATORY Specimen Anatomical Collection Method Collection Time Receive d Time (Source) Location / / Volume Laterality Blood specimen 07/06/2017 12:00 7 (specimen) PM EST 12:24 PM EST Resulting Agency Comment Spec In Lab Daphne Shahid MD BLOOD BANK ORDERABLES Performing Organization Address [facility] [address] Prothrombin Time (07/06/2017 11:24 AM EST) P athologist Signature PT 13.3 11.8 - 14.0 [facility] LABORATORY INR 1.0 0.9 - 1.1 [place] [...] Shahid MD HEMATOLOGY ORDERABLES Performing Organization Address City/[facility]/[place] [address] (ABNORMAL) APTT (07/06/2017 11:24 [...] Address City/State/ZIP Code Phon e Number [address] POCT Glucose (07/06/2017 11:02 AM EST) athologist Signature POC Glucose 187 65 - 199 [facility] Comment: Supplemental ranges: <140 mg/dL before meals <180 mg/dL all other times of the day Specimen Anatomical Collection Method Collection Time Receive d Time (Source) Location / / Volume Laterality Blood specimen 07/06/2017 11:02 7 (specimen) AM EST 11:02 AM EST Daphne Shahid MD POINT OF CARE TEST ORDERABLE S Performing Organization Address City/[facility]/ZIP Code Phon e Number [address] POCT Glucose (07/06/2017 10:18 AM EST) P athologist Signature POC Glucose 193 65 - 199 [facility] mg/dL [facility] Comment: Supplemental ranges: <140 mg/dL before meals <180 mg/dL all other times of the day Specimen Anatomical Collection Method Collection Time Receive d Time (Source) Location / / Volume Laterality Blood specimen 07/06/2017 10:18 7 (specimen) AM EST 10:18 AM EST Daphne Shahid MD POINT OF CARE TEST ORDERABLE S Performing Organization Address City/[facility]/ZIP Code Phon e Number [address] POCT Glucose (07/06/2017 9:25 AM EST) P athologist Signature POC Glucose 182 65 - 199 [facility] Comment: Supplemental ranges: <140 mg/dL before meals <180 mg/dL all other times of the day Specimen Anatomical Collection Method Collection Time Receive d Time (Source) Location / / Volume Laterality Blood specimen 07/06/2017 9:25 AM 017 9:25 (specimen) EST AM EST Daphne Shahid MD POINT OF CARE TEST ORDERABLE S Performing Organization Address City/State/[place] [address] (ABNORMAL) Cardiac Enzymes (LEB/CGP) (07/06/2017 8:10 AM EST) athologist Signature Troponin-T 2.26 (H) 0.00 - BARBARA DAVIS 0.00 ng/mL [facility] LABORATORY Comment: The 99th percentile for [...] additional sample may be indicated. Reference: Third [place] Definition of Myocardial Infarction. Journal of the [employer] College [employer]iology 2012;60:1581-98 CK, Total 124 0 - 200 unit/L [facility] LABORATORY Specimen Anatomical Collection Method Collection Time Receive d Time (Source) Location / / Volume Laterality Blood specimen 07/06/2017 8:10 AM 017 8:23 (specimen) EST AM EST Resulting Agency Comment Spec In Lab Daphne Shahid MD CHEMISTRY ORDERABLES Performing Organization Address City/State/ZIP Code Phon e Number [address] Magnesium (07/06/2017 8:10 AM EST) athologist Signature Magnesium 0.84 0.69 - 1.07 [facility] mmol/L [facility] LABORATORY Specimen Anatomical Collection Method Collection Time Receive d Time (Source) Location / / Volume Laterality Blood specimen 07/06/2017 8:10 AM 017 8:21 (specimen) EST AM EST Resulting Agency Comment Spec In Lab Daphne Shahid MD CHEMISTRY ORDERABLES Performing Organization Address City/[facility] Phon e Number [address] (ABNORMAL) Basic Metabolic Panel (non-fasting) (07/06/2017 8:10 AM EST) athologist Signature Glucose Lvl 199 65 - 199 [facility] mg/dL [facility] LABORATORY Comment: Diabetes: >=200 mg/dL plus [...] or in patients with acute kidney failure. http://[employer]/DHnkdep http://[employer]/DHMCnkf Specimen Anatomical Collection Method Collection Time Receive d Time (Source) Location / / Volume Laterality Blood specimen 07/06/2017 8:10 AM 017 8:21 (specimen) EST AM EST Resulting Agency Comment Spec In Lab Daphne Shahid MD CHEMISTRY ORDERABLES Performing Organization Address City/[facility]/ZIP Code Phon e Number [address] POCT Glucose (07/06/2017 7:34 AM EST) P athologist Signature POC Glucose 198 65 - 199 [facility]dL [facility] LABORATORY Comment: Supplemental ranges: <140 mg/dL before meals <180 mg/dL all other times of the day Specimen Anatomical Collection Method Collection Time Receive d Time (Source) Location / / Volume Laterality Blood specimen 07/06/2017 7:34 AM 017 7:34 (specimen) EST AM EST Daphne Shahid MD POINT OF CARE TEST ORDERABLE S Performing Organization Address City/[facility]/ZIP Code Phon e Number [address] POCT Glucose (07/06/2017 7:03 AM EST) P athologist Signature POC Glucose 181 65 - 199 [facility] mg/dL [facility] LABORATORY Comment: Supplemental ranges: <140 mg/dL before meals <180 mg/dL all other times of the day Specimen Anatomical Collection Method Collection Time Receive d Time (Source) Location / / Volume Laterality Blood specimen 07/06/2017 7:03 AM 017 7:03 (specimen) EST AM EST Daphne Shahid MD POINT OF CARE TEST ORDERABLE S Performing Organization Address City/[facility]/ZIP Code Phon e Number [address] XR Chest PA or [...] 172 65 - 199 [facility] mg/dL [facility] LABOR[facility]ORY Comment: Supplemental ranges: <140 mg/dL before meals <180 mg/dL all other times of the day Specimen Anatomical Collection Method Collection Time Receive d Time (Source) Location / / Volume Laterality Blood specimen 07/06/2017 6:21 AM 017 6:21 (specimen) EST AM EST Daphne Shahid MD POINT OF CARE TEST ORDERABLE S Performing Organization Address City/State/ZIP Code Phon e Number [address] POCT Glucose (07/06/2017 5:08 AM EST) athologist Signature POC Glucose 154 65 - 199 [facility] mg/dL [facility] LABORATORY Comment: Supplemental ranges: <140 mg/dL before meals <180 mg/dL all other times of the day Specimen Anatomical Collection Method Collection Time Receive d Time (Source) Location / / Volume Laterality Blood specimen 07/06/2017 5:08 AM 017 5:08 (specimen) EST AM EST Daphne Shahid MD POINT OF CARE TEST ORDERABLE S Performing Organization Address City/State/ZIP Code Phon e Number [address] POCT Glucose (07/06/2017 4:05 AM EST) athologist Signature POC Glucose 142 65 - 199 [facility] mg/dL [facility] LABORATORY Comment: Supplemental ranges: <140 mg/dL before meals <180 mg/dL all other times of the day Specimen Anatomical Collection Method Collection Time Receive d Time (Source) Location / / Volume Laterality Blood specimen 07/06/2017 4:05 AM 017 4:05 (specimen) EST AM EST Daphne Shahid MD POINT OF CARE TEST ORDERABLE S Performing Organization Address City/State/ZIP Code Phon e Number [address] POCT Glucose (07/06/2017 3:00 AM EST) P athologist Signature POC Glucose 116 65 - 199 [facility] mg/dL [facility] LABORATORY Comment: Supplemental ranges: <140 mg/dL before meals <180 mg/dL all other times of the day Specimen Anatomical Collection Method Collection Time Receive d Time (Source) Location / / Volume Laterality Blood specimen 07/06/2017 3:00 AM 017 3:00 (specimen) EST AM EST Daphne Shahid MD POINT OF CARE TEST ORDERABLE S Performing Organization Address City/[facility]/[place] [address] Potassium (07/06/2017 2:20 AM EST) athologist Signature Potassium 3.9 3.5 - 5.0 [facility] mmol/L [facility] LABORATORY Comment: Please note: ??Patients with [...] Shahid MD CHEMISTRY ORDERABLES Performing Organization Address City/[facility]/ZIP Code Phon e Number [address] Differential, Automated (07/06/2017 2:20 AM EST) athologist Signature Neutrophils % 72.9 % [facility] LABORATORY Neutr Abs (ANC) 5.53 1.70 - [facility] 6.10 [facility] x10(3)/[facility] LABORATORY Lymphocytes % 16.4 % [facility] LABORATORY Lymphocytes Abs 1.2 0.9 - 3.2 [facility] x10(3)/[facility] LABORATORY Monocytes % 9.4 % [facility] LABORATORY Monocyte Abs 0.7 0.3 - 0.9 [facility] x10(3)/[facility] LABORATORY Eosinophils % 0.5 % [facility] LABORATORY Eosinophils Abs 0.0 0.0 - 0.4 [facility] x10(3)/[facility] LABORATORY Basophils % 0.4 % [facility] LABORATORY Basophils Abs 0.0 0.0 - 0.1 [facility] x10(3)/[facility] LABORATORY Immature Gran % 0.40 % [facility] [...] Melisa Gran Abs 0.03 0.00 - 0.04 x10(3)/[facility] LABORATORY Specimen Anatomical Collection Method Collection Time Receive d Time (Source) Location / / Volume Laterality Blood specimen 07/06/2017 2:20 AM 017 2:33 (specimen) EST AM EST Resulting Agency Comment Spec In Lab Daphne Shahid MD HEMATOLOGY ORDERABLES Performing Organization Address City/State/[place] [address] (ABNORMAL) Hemogram (07/06/2017 2:20 AM EST) Analysis Performed At Patho logist Time Signature WBC 7.6 4.0 - 9.5 [facility] x10(3)/[facility] LABORATORY RBC 4.52 (L) 4.58 - [facility] 5.54 [facility] x10(6)/[facility] LABORATORY Hemoglobin 13.4 (L) 13.7 - [facility] 16.5 gm/dL [facility] LABORATORY Hematocrit 39.7 (L) 40.5 - [facility] 48.5 % [facility] LABORATORY MCV 87.8 82.9 - [facility] 93.1 [facility] LABORATORY MCH 29.6 27.5 - [facility] 32.1 pg [facility] LABORATORY MCHC 33.8 32.0 - [facility] 35.7 gm/dL [facility] LABORATORY Platelets 189 145 - 357 [facility] x10(3)/[facility] LABORATORY RDWSD 45.6 (H) 36.0 - [facility] 45.0 [facility] LABORATORY RDWCV 14.3 (H) 11.4 - [facility] 13.8 % [facility] LABORATORY MPV 9.1 7.6 - 12.9 [facility] fL [facility] LABORATORY nRBC % Auto 0.0 % [facility] LABORATORY nRBC Abs Auto 0.000 0.000 - [facility]ORYAN 0.000 [facility] x10(3)/[facility] LABORATORY Specimen Anatomical Collection Method Collection Time Receive d Time (Source) Location / / Volume Laterality Blood specimen 07/06/2017 2:20 AM 017 2:33 (specimen) EST AM EST Resulting Agency Comment Spec In Lab Daphne Shahid MD HEMATOLOGY ORDERABLES Performing Organization Address City/[facility]/ZIP Code Phon e Number [address] (ABNORMAL) APTT (07/06/2017 2:20 [...] Shahid MD HEMATOLOGY ORDERABLES Performing Organization Address City/[facility]/[place] [address] POCT Glucose (07/06/2017 2:20 AM EST) P athologist Signature POC Glucose 115 65 - 199 [facility] mg/dL [facility] LABORATORY Comment: Supplemental ranges: <140 mg/dL before meals <180 mg/dL all other times of the day Specimen Anatomical Collection Method Collection Time Receive d Time (Source) Location / / Volume Laterality Blood specimen 07/06/2017 2:20 AM 017 2:20 (specimen) EST AM EST Daphne Shahid MD POINT OF CARE TEST ORDERABLE S Performing Organization Address City/State/[place] [address] (ABNORMAL) Cardiac Enzymes (LEB/CGP) (07/06/2017 2:20 AM EST) P athologist Signature Troponin-T 2.13 (H) 0.00 [facility] ng/mL [facility] LABORATORY Comment: The 99th percentile for [...] additional sample may be indicated. Reference: Third [place] Definition of Myocardial Infarction. Journal of the [place] College of Cardiology 2012;60:1581-98 CK, Total 129 0 - 200 unit/L [facility] LABORATORY Specimen Anatomical Collection Method Collection Time Receive d Time (Source) Location / / Volume Laterality Blood specimen 07/06/2017 2:20 AM 017 2:33 (specimen) EST AM EST Resulting Agency Comment Spec In Lab Daphne Shahid MD CHEMISTRY ORDERABLES Performing Organization Address City/State/[place] [address] (ABNORMAL) Hemoglobin A1c (07/06/2017 2:20 AM EST) Analysis Performed At Patho logist Time Signature Hemoglobin A1C 6.8 (H) 4.3 - 5.6 [facility] LABORATORY Comment: Reference Range: 4.3 - 5.6% [...] Avg Gluc See note mg/dL [facility] RY[facility] LABORATORY Comment: Estimated Average Glucose not [...] with hemoglobinopathies. Additional resources are available on [facility] ADA website. Macario HAMMOND, Ruthann J, Deysi R, et al. ??Tr anslating the A1C assay into estimated average glucose values. ??Diabetes Care 2008:31(8):9509-5906. Specimen Anatomical Collection Method Collection Time Receive d Time (Source) Location / / Volume Laterality Blood specimen 07/06/2017 2:20 AM 017 2:34 (specimen) EST AM EST Resulting Agency Comment Spec In Lab Daphne Shahid MD CHEMISTRY ORDERABLES Performing Organization Address City/State/ZIP [place] [address] (ABNORMAL) Lipid Panel (07/06/2017 2:20 AM EST) [employer] Method Time Signature Chol, Total 150 <=239 [place] mg/dL [facility] LABORATORY Triglycerides 129 <=199 [place] mg/dL [facility] LABORATORY HDL 32 (L) >=40 [place] mg/dL [facility] LABORATORY LDL Cholesterol 92 <=190 [place] mg/dL [facility] LABORATORY Chol/HDL Ratio 4.7 ratio [facility] LABORATORY Lipid See Note [facility] Interpretation [facility] LABORATORY Comment: Lipid management should be guided by a p atient? s ASCVD risk, goals and preferences. ACC/AHA Guidelines recommend high intens ity statin if clinical ASCVD or LDL greater than or equal to 190 mg/dL. http://[employer].FriendCode/FDZ-NEV-Qbqtrusbf Adults aged 40-75 with LDL 70-189 mg/dL should have their 10 year ASCVD risk estimated with the ACC/AHA ASCVD risk es timator http://tools.acc.org/UIUHU-Qujc-Disrrsav r/ Statin should be discussed if risk [...] Address City/State/ZIP [place] [address] POCT Glucose (07/06/2017 1:09 AM EST) athologist Signature POC Glucose 121 65 - 199 [facility] mg/dL [facility] LABORATORY Comment: Supplemental ranges: <140 mg/dL before meals <180 mg/dL all other times of the day Specimen Anatomical Collection Method Collection Time Receive d Time (Source) Location / / Volume Laterality Blood specimen 07/06/2017 1:09 AM 017 1:09 (specimen) EST AM EST Daphne Shahid MD POINT OF CARE TEST ORDERABLE S Performing Organization Address City/State/[place] [address] POCT Glucose (07/06/2017 12:06 AM EST) athologist Signature POC Glucose 147 65 - 199 [facility] mg/dL [facility] LABORATORY Comment: Supplemental ranges: <140 mg/dL before meals <180 mg/dL all other times of the day Specimen Anatomical Collection Method Collection Time Receive d Time (Source) Location / / Volume Laterality Blood specimen 07/06/2017 12:06 7 (specimen) AM EST 12:06 AM EST Daphne Shahid MD POINT OF CARE TEST ORDERABLE S Performing Organization Address City/State/[place] [address] (ABNORMAL) POCT Glucose (07/05/2017 10:56 PM EST) athologist Signature POC Glucose 200 (H) 65 - 199 [facility] RYAN mg/dL [facility] LABORATORY Comment: Supplemental ranges: <140 mg/dL before meals <180 mg/dL all other times of the day Specimen Anatomical Collection Method Collection Time Receive d Time (Source) Location / / Volume Laterality Blood specimen 07/05/2017 10:56 7 (specimen) PM EST 10:56 PM EST Daphne Shahid MD POINT OF CARE TEST ORDERABLE S Performing Organization Address City/State/[place] [address] (ABNORMAL) POCT Glucose (07/05/2017 10:05 PM EST) athologist Signature POC Glucose 225 (H) 65 - 199 [facility] mg/dL [facility] LABORATORY Comment: Supplemental ranges: <140 mg/dL before meals <180 mg/dL all other times of the day Specimen Anatomical Collection Method Collection Time Receive d Time (Source) Location / / Volume Laterality Blood specimen 07/05/2017 10:05 7 (specimen) PM EST 10:05 PM EST Daphne Shahid MD POINT OF CARE TEST ORDERABLE S Performing Organization Address City/[facility]/[place] [address] (ABNORMAL) POCT Glucose (07/05/2017 9:02 PM EST) athologist Signature POC Glucose 301 (H) 65 - 199 [facility] mg/dL [facility] LABORATORY Comment: Supplemental ranges: <140 mg/dL before meals <180 mg/dL all other times of the day Specimen Anatomical Collection Method Collection Time Receive d Time (Source) Location / / Volume Laterality Blood specimen 07/05/2017 9:02 PM 017 9:02 (specimen) EST PM EST Daphne Shahid MD POINT OF CARE TEST ORDERABLE S Performing Organization Address City/[facility]/[place] [address] XR Chest PA or [...] 474 ms MUSE SYSTEM (Bezet) Calculated P [place] 50 degrees MUSE SYSTEM Calculated R [place] -28 degrees MUSE SYSTEM Calculated T [place] 90 degrees MUSE SYSTEM INTERPRETATION Sinus tachycardia [...] (ABNORMAL) Differential, Automated (07/05/2017 8:20 PM EST) [employer] Method Time Signature Neutrophils % 88.4 % [facility] LABORATORY Neutr Abs (ANC) 9.08 (H) 1.70 - [facility] 6.10 [facility] x10(3)/[facility] LABORATORY Lymphocytes % 7.0 % [facility] LABORATORY Lymphocytes Abs 0.7 (L) 0.9 - 3.2 [facility] x10(3)/[facility] LABORATORY Monocytes % 3.7 % [facility] LABORATORY Monocyte Abs 0.4 0.3 - 0.9 [facility] x10(3)/[facility] LABORATORY Eosinophils % 0.1 % [facility] LABORATORY Eosinophils Abs 0.0 0.0 - 0.4 [facility] x10(3)/[facility] LABORATORY Basophils % 0.2 % [facility] LABORATORY Basophils Abs 0.0 0.0 - 0.1 [facility] x10(3)/[facility] LABORATORY Immature Gran % 0.60 % [...] Organization Address City/State/[place] [address] (ABNORMAL) Hemogram (07/05/2017 8:20 PM EST) Analysis Performed At Patho logist Time Signature WBC 10.3 (H) 4.0 - 9.5 [facility] x10(3)/[facility] LABORATORY RBC 4.64 4.58 - [facility] 5.54 [facility] x10(6)/[facility] LABORATORY Hemoglobin 14.1 13.7 - [facility] 16.5 gm/dL [facility] LABORATORY Hematocrit 40.8 40.5 - [facility] 48.5 % [facility] LABORATORY MCV 87.9 82.9 - [facility] 93.1 [facility] LABORATORY MCH 30.4 27.5 - [facility] 32.1 pg [facility] LABORATORY MCHC 34.6 32.0 - [facility] 35.7 gm/dL [facility] LABORATORY Platelets 204 145 - 357 [facility] x10(3)/[facility] LABORATORY RDWSD 46.1 (H) 36.0 - [facility] 45.0 [facility] LABORATORY RDWCV 14.5 (H) 11.4 - [facility] 13.8 % [facility] LABORATORY MPV 9.7 7.6 - 12.9 [facility] LABORATORY nRBC % Auto 0.0 % [facility] LAB[facility]ATORY nRBC Abs Auto 0.000 0.000 - [facility] 0.000 [facility] x10(3)/[facility] LABORATORY Specimen Anatomical Collection Method Collection Time Receive d Time (Source) Location / / Volume Laterality Blood specimen 07/05/2017 8:20 PM 017 8:27 (specimen) EST PM EST Resulting Agency Comment Spec In Lab Daphne Shahid MD HEMATOLOGY ORDERABLES Performing Organization Address City/State/[place] [address] APTT (07/05/2017 8:20 PM [...] Shahid MD HEMATOLOGY ORDERABLES Performing Organization Address City/[facility]/ZIP Code Phon e Number [address] (ABNORMAL) Cardiac Enzymes (LEB/CGP) (07/05/2017 8:20 PM EST) P athologist Signature Troponin-T 2.11 (H) 0.00 - [facility] RYAN 0.00 ng/mL [facility] LABORATORY Comment: The 99th percentile for [...] additional sample may be indicated. Reference: Third [place] Definition of Myocardial Infarction. Journal of the [employer] College of Cardiology 2012;60:1581-98 CK, Total 149 0 - 200 unit/L [facility] LABORATORY Specimen Anatomical Collection Method Collection Time Receive d Time (Source) Location / / Volume Laterality Blood specimen 07/05/2017 8:20 PM 017 8:27 (specimen) EST PM EST Resulting Agency Comment Spec In Lab Daphne Shahid MD CHEMISTRY ORDERABLES Performing Organization Address City/[facility]/[place] [address] (ABNORMAL) Magnesium (07/05/2017 8:20 PM EST) athologist Signature Magnesium 0.68 (L) 0.69 - 1.07 [facility] mmol/L [facility] LABORATORY Specimen Anatomical Collection Method Collection Time Receive d Time (Source) Location / / Volume Laterality Blood specimen 07/05/2017 8:20 PM 017 8:27 (specimen) EST PM EST Resulting Agency Comment Spec In Lab Daphne Shahid MD CHEMISTRY ORDERABLES Performing Organization Address City/State/[place] [address] (ABNORMAL) Basic Metabolic Panel (non-fasting) (07/05/2017 8:20 PM EST) athologist Signature Glucose Lvl 321 (H) 65 - 199 [facility] mg/dL [facility] LABORATORY Comment: Diabetes: >=200 mg/dL plus [...] or in patients with acute kidney failure. http://[employer].FriendCode/DHnkdep http://[employer].FriendCode/DHMCnkf Specimen Anatomical Collection Method Collection Time Receive d Time (Source) Location / / Volume Laterality Blood specimen 07/05/2017 8:20 PM 017 8:27 (specimen) EST PM EST Resulting Agency Comment Spec In Lab Daphne Shahid MD CHEMISTRY ORDERABLES Performing Organization Address City/State/[place] [address] (ABNORMAL) POCT Glucose (07/05/2017 7:32 PM EST) P athologist Signature POC Glucose 296 (H) 65 - 199 [facility] mg/dL [facility] LABORATORY Comment: Supplemental ranges: <140 mg/dL before meals <180 mg/dL all other times of the day Specimen Anatomical Collection Method Collection Time Receive d Time (Source) Location / / Volume Laterality Blood specimen 07/05/2017 7:32 PM 017 7:32 (specimen) EST PM EST Daphne Shahid MD POINT OF CARE TEST ORDERABLE S Performing Organization Address City/State/[place] [address] CARDIAC CATHETERIZATION (07/05/2017 6:47 PM EST) Specimen (Source) Anatomical Location Collection Method / Collectio n Time Received Time / Laterality Volume Narrative CARDIOMAC SYSTEM - 07/05/2017 7:27 PM ES T ?[facility] ? Cardiac Cathete rization/Intervention Report ? Patient Name: Natalya, Gregory ? Procedure Date: 07/05/2017 ? A #: [id number] ? Primary Physician: Clarisa, Jet T ? Case #: [id number] ? File Name: [id number] ? Catheterization Order Number: [id number] ? [facility] ? Final Report [place], [place] ? Patient Name: ? Gregory Natalya ?ID#: ?[id number] ? : ?1945 ? Procedure Date: ? Jonhny 11, 20 17 ?Case #: ? [id number] presented with: non -STEMI (w/i 7 days). [place] ?[employer] angina c lass was IV. 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 ? Jet Mcknena M.D. ? Electronically Signed by: Jet bunch M.D. ? Report Finalized: 07/05/2017 ??19:23 ? Report Last Ammended: 10/26/2017 ??10:29 ? Procedure Note Jet Mckenna MD - 10/26/2017Formatt ing of this note might be different from the original. [facility] Cardiac Catheterization/Intervention Re port Patient Name: Gregory Hoang Procedure Date: 07/05/2017 A #: [id number] Primary Physician: Jet Mckenna Case #: [id number] File Name: [id number] Catheterization Order Number: [id number] [facility] Final Report [place], [place] Patient Name: Gregory Hoang ID#: [id number] : 1945 Procedure Date: July 05, [...] presented with: non-STEMI ( w/i 7 days). [place] [employer] angina class was IV. 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 Jet Mckenna M.D. Electronically Signed by: [...] Mccollum ? (Age): 1945(72y) Med Rec#: ? [id number] ?Sex: ?M ? Site Loc: ? [facility] ?Ht / Wt: ??173(cm)/86(kg) Pt. Loc: ?[facility] ? BSA: ?2 Study Date: ?? 07/05/2017 ?Pt. Type: Inpatient Tape: ? Referring: Daphne Shahid ([id number]) Referring: MANDA ALCANTAR Reading: Blade Preston ([id number]) Credit Checker: Dayami Paula BA, [facility] Diagnosis: *ICD-10-PCS Non-ST elevation (NSTEMI) [...] E-wave Vmax ?0.8 ?m/sec ? MV deceleration cykc650 ?msec ? MV A-wave Vmax ?0.8 ?m/sec [...] ? Mid-Inferior ?Akinetic ? Mid-Inferoseptal ?Hypokinetic ? Troy-Septal ? Akinetic ? Troy-Anterior ? Hypokinetic ? Troy-Lateral ?Hypokinetic ? Troy-Inferior ? Akinetic ? Troy-Tip ?Akinetic ? This report has been electronically sign ed by: _ Blade Preston MD ? 07/06/2017 08 :53:15 Images reviewed and interpretation [facility] Cardiac Ultrasound Laboratory Procedure Note Blade Preston MD - 07/06/2017Formatt ing of this note might be different from the original. Procedure: Transthoracic Echocardiogram Patient: NATALYA MCBRIDE(Age): [birth year]72y) Med Rec#: [id number] Sex: M Site Loc: [facility] Ht / Wt: 173(cm)/86(kg) Pt. Loc: [facility] BSA: 2 Study Date: 07/05/2017 Pt. Type: Inpatie nt Tape: Referring: Daphne Shahid ([id number]) Referring: MANDA ALCANTAR Reading: Blade Preston ([id number]) Credit Checker: Dayami Paula BA, [facility] Diagnosis: *ICD-10-PCS Non-ST elevation (NSTEMI) [...] MV E-wave Vmax 0.8 m/sec MV deceleration ihyn410 msec MV A-wave Vmax 0.8 m/sec MV [...] Hypokinetic Mid-Posterolateral Hypokinetic Mid-Inferior Akinetic Mid-Inferoseptal Hypokinetic Troy-Septal Akinetic Troy-Anterior Hypokinetic Troy-Lateral Hypokinetic Troy-Inferior Akinetic Troy-Tip Akinetic This report has been electronically sign ed by: _ Blade Preston MD 07/06/2017 08:53:15 Images reviewed and interpretation verif ied [facility] Cardiac Ultrasound Laboratory Daphne Shahid MD ECHO ORDERABLES Performing Organization Address City/State/ZIP Code Phon e Number [facility] Differential, Automated (07/05/2017 4:55 PM EST) P athologist Signature Neutrophils % 77.0 % [facility] LABORATORY Neutr Abs (ANC) 5.26 1.70 - [facility] 6.10 [facility] x10(3)/[facility] LABORATORY Lymphocytes % 13.3 % [facility] LABORATORY Lymphocytes Abs 0.9 0.9 - 3.2 [facility] x10(3)/[facility] LABORATORY Monocytes % 8.2 % [facility] LABORATORY Monocyte Abs 0.6 0.3 - 0.9 [facility] x10(3)/[facility] LABORATORY Eosinophils % 0.7 % [facility] LABORATORY Eosinophils Abs 0.0 0.0 - 0.4 [facility] x10(3)/[facility] LABORATORY Basophils % 0.4 % [facility] LABORATORY Basophils Abs 0.0 0.0 - 0.1 [facility] x10(3)/[facility] LABORATORY Immature Gran % 0.40 % [facility] [...] Melisa Gran Abs 0.03 0.00 - 0.04 x10(3)/[facility] LABORATORY Specimen Anatomical Collection Method Collection Time Receive d Time (Source) Location / / Volume Laterality Blood specimen 07/05/2017 4:55 PM 017 5:24 (specimen) EST PM EST Resulting Agency Comment Spec In Lab Daphne Shahid MD HEMATOLOGY ORDERABLES Performing Organization Address City/State/ZIP Code Phon e Number [place] [phone] LAB[address]ORY [address] (ABNORMAL) Hemogram (07/05/2017 4:55 PM EST) Analysis Performed At Patho logist Time Signature WBC 6.8 4.0 - 9.5 [facility] x10(3)/[facility] LABORATORY RBC 4.67 4.58 - [facility] 5.54 [facility] x10(6)/[facility] LABORATORY Hemoglobin 14.0 13.7 - [facility] 16.5 gm/dL [facility] LABORATORY Hematocrit 41.0 40.5 - [facility] 48.5 % [facility] LABORATORY MCV 87.8 82.9 - [facility] 93.1 fL [facility] LABORATORY MCH 30.0 27.5 - [facility] 32.1 pg [facility] LABORATORY MCHC 34.1 32.0 - [facility] 35.7 gm/dL [facility] LABORATORY Platelets 197 145 - 357 [facility] x10(3)/[facility] LABORATORY RDWSD 46.4 (H) 36.0 - [facility] 45.0 [facility] LABORATORY RDWCV 14.5 (H) 11.4 - [facility] 13.8 % [facility] LABORATORY MPV 9.7 7.6 - 12.9 [facility] LABORATORY nRBC % Auto 0.0 % [facility] LABORATORY nRBC Abs Auto 0.000 0.000 - [facility] 0.000 [facility] x10(3)/[facility] LABORATORY Specimen Anatomical Collection Method Collection Time Receive d Time (Source) Location / / Volume Laterality Blood specimen 07/05/2017 4:55 PM 017 5:24 (specimen) EST PM EST Resulting Agency Comment Spec In Lab Daphne Shahid MD HEMATOLOGY ORDERABLES Performing Organization Address City/State/ZIP Code Phon e Number [place] [phone]OSPITAL LAB[address]ATORY Drive (ABNORMAL) Cardiac Enzymes (LEB/CGP) (07/05/2017 4:55 PM EST) athologist Signature Troponin-T 1.69 (H) 0.00 - [facility] DAVIS 0.00 ng/mL [facility] LABORATORY Comment: The 99th percentile for [...] additional sample may be indicated. Reference: Third [place] Definition of Myocardial Infarction. Journal of the [place] College of Cardiology 2012;60:1581-98 CK, Total 191 0 - 200 unit/L [facility] LABORATORY Specimen Anatomical Collection Method Collection Time Receive d Time (Source) Location / / Volume Laterality Blood specimen 07/05/2017 4:55 PM 017 5:56 (specimen) EST PM EST Resulting Agency Comment Spec In Lab Daphne Shahid MD CHEMISTRY ORDERABLES Performing Organization Address City/[facility]/ZIP Code Phon e Number [address] (ABNORMAL) pro-Brain Natriuretic Peptide (07/05/2017 4:55 PM EST) athologist Signature ProBNP 1,598 (H) <=125 [facility] pg/mL [facility] LABORATORY Specimen Anatomical Collection Method Collection Time Receive d Time (Source) Location / / Volume Laterality Blood specimen 07/05/2017 4:55 PM 017 5:24 (specimen) EST PM EST Resulting Agency Comment Spec In Lab Daphne Shahid MD CHEMISTRY ORDERABLES Performing Organization Address City/[facility]/[place] [address] Magnesium (07/05/2017 4:55 PM EST) athologist Signature Magnesium 0.78 0.69 - 1.07 [facility] mmol/L [facility] LABORATORY Specimen Anatomical Collection Method Collection Time Receive d Time (Source) Location / / Volume Laterality Blood specimen 07/05/2017 4:55 PM 017 5:24 (specimen) EST PM EST Resulting Agency Comment Spec In Lab Daphne Shahid MD CHEMISTRY ORDERABLES Performing Organization Address City/[facility]/[place] [address] (ABNORMAL) Basic Metabolic Panel (non-fasting) (07/05/2017 4:55 PM EST) P athologist Signature Glucose Lvl 230 (H) 65 - 199 [facility] mg/dL [facility] LABORATORY Comment: Diabetes: >=200 mg/dL plus [...] or in patients with acute kidney failure. http://[employer]/DHnkdep http://[employer]/DHMCnkf Specimen Anatomical Collection Method Collection Time Receive d Time (Source) Location / / Volume Laterality Blood specimen 07/05/2017 4:55 PM 017 5:24 (specimen) EST PM EST Resulting Agency Comment Spec In Lab Daphne Shahid MD CHEMISTRY ORDERABLES Performing Organization Address City/State/[place] [address] (ABNORMAL) APTT (07/05/2017 4:55 [...] Shahid MD HEMATOLOGY ORDERABLES Performing Organization Address City/[facility]/ZIP Code Phon e Number [address] (ABNORMAL) POCT Glucose (07/05/2017 4:53 PM EST) P athologist Signature POC Glucose 208 (H) 65 - 199 [facility] mg/dL [facility] LABORATORY Comment: Supplemental ranges: <140 mg/dL before meals <180 mg/dL all other times of the day Specimen Anatomical Collection Method Collection Time Receive d Time (Source) Location / / Volume Laterality Blood specimen 07/05/2017 4:53 PM 017 4:53 (specimen) EST PM EST Daphne Shahid MD POINT OF CARE TEST ORDERABLE S Performing Organization Address City/[facility]/[place] [address] EKG 12 Lead (07/05/2017 4:32 PM EST) Component Value Ref Range Test Analysis Performed Pathologis t Method Time At Signature Ventricular rate 97 BPM MUSE SYSTEM Atrial Rate 97 BPM MUSE SYSTEM P-R Interval 148 ms MUSE SYSTEM QRS Duration 96 ms MUSE SYSTEM Q-T Interval 364 ms MUSE SYSTEM QTC Calculated 462 ms MUSE SYSTEM (Bezet) Calculated P [place] 48 degrees MUSE SYSTEM Calculated R [place] -33 degrees MUSE SYSTEM Calculated T [place] 98 degrees MUSE SYSTEM INTERPRETATION Normal sinus [...] ECG ORDERABLES Performing Organization Address City/State/ZIP Code [facility] e Number MUSE SYSTEM documented in this [...] post-op day 1 in the AM Give HI if unable to take PO, Routine Given [...] Jones RN) 0922 (Given - Provider: Myrna trilpett RN) 81 mg, Oral, DAILY, First dose [...] post-op day 1 in the AM Give HI if unable to take PO, Routine atorvastatin [...] 0530 (Gi cody - Provider: Denice Jacobson, VASMI) 175 mcg, Oral, EVERY MORNING, First dose [...] 0615 (Given - Provider: Ale Rangel , VAMSI)131 (Given - Provider: Em Jones [...] More Luther RN) 0841 (Given - Provider: mE Jones RN) 0922 (Given - Provider: Myrna [...] post-op day 1 in the AM Give HI if unable to take PO
Routine Group [...]
Routine documented in this encounter Care Teams Digital Developer Relationship Specialty Start Date End Date Lovely Vicente MD PCP - General 04/16/[address] [place] [address] documented as of this encounter
--- OUTSIDE RECORDS SUMMARY | 2022-03-13 11:01 | XMS_ITS | Encounter Summary ---
:1945 [place] [address] Care Team Providers Name Role Phone Lovely Vicente MD Primary Care Provider Reason for Visit Auth/Cert Specialty Diagnoses / Procedures Referred By Contact Refer red To Contact Diagnoses STEMI (ST elevation myocardial infarction) NSTEMI STEMI Procedures CARDIAC CATHETERIZATION NAYE IPI Referral ID Status Reason Start Date Expiration Date Visits Requ ested Visits Authorized [id number] 1 1 Encounter Details Date Type Department Care Team Description 07/07/2017 Anesthesia Event Main Operating Room Yifan Jaime MD [facility] [place] [address] [facility] Ginny Murray MD [facility] [place] [address] [facility] [place] [address] Anesthesia Record Procedure Summary Procedure Name [...] Crum, Angela Gomes, left; 18 gauge; removed CUSTOMER SERVICE MANAGER per policy/procedure; 07/11/17; 2355 Intra-Aortic Balloon [...] Miller, Carrie L, Type: Cuffed; ETT Size: SERVICE GIRL 8 mm; Santiago Blade: 2; Notes: Asleep, [...] Stop Room / Location 07/07/17 1335 1836 [facility] OR [facility] MAIN OR Procedure Diagnosis Surgeon Responsible Provider @CABG, USING ARTERIAL GRAFT;SINGLE ARTERIAL GRAFT (WRVU 33.75) (N/A Chest); @CABG, TWO VENOUS GRAFTS & ARTERIAL GRAFT (WRVU 7.93) (N/A Chest); ENDOSCOPIC HARVEST VEIN(S) FOR CABG (WRVU 0.31) (Right Leg) (CAD) Yuan Freitas MD Hartman, Gregg S, MD All Anesthesia Providers: Anesthesiologist: Yifan Perez MD Weigher Bulker: Ginny Murray MD Most Recent Vitals: 07/08/17 [...] SETUP performed by Manny Mcknight MD at [facility] MAIN OR ??? PRO COLONOSCOPY, REMV LESN, SNARE 01/16/2014 COLONOSCOPY, POLYPECTOMY, REMOVAL LESION BY SNARE performed by Nohemi Jaimes MD at [facility] ENDOSCOPY ??? PRO THYROIDECTOMY 03/28/2013 THYROIDECTOMY, TOTAL OR COMPLETE performed by Manny Mcknight MD at [facility] MAIN OR Social History Substance [...] MD [facility] [address] TADE[address] [place], [place] [address] (Wo rk) 05/28/2022 Appointment Cardiology Zulma Dolan MD [facility] [place], [place] [address] (Wo rk) 05/28/2022 Laboratory Appointment Lab 05/28/2022 Office Visit Cardiology Zulma Dolan MD [facility] [place] [address] Liz Poole PA [facility] [place] [address] 06/10/2022 Office Visit Dermatology Laura Scherer MD [facility] [address] TEJA GR-DERMAT OLOGY [place], [place] [address] (Wo rk) documented as of [...] mg documented in this encounter Care Teams Automatic Bandsaw Tender Relationship Specialty Start Date End Date Lovely Vicente MD PCP - General 04/16/15 [facility] [address] [place] [address] documented as of this encounter
--- OUTSIDE RECORDS SUMMARY | 2022-03-13 11:03 | XMS_ITS | Encounter Summary ---
:1945 Author Organization [facility] [address] Care Team Providers Name Role Phone Lovely Vicente MD Primary Care Provider Reason for Visit Reason Onset Date Comments Medication Refill 12/24/2016 Encounter Details Date Type Department Care Team Description 12/24/2016 Refill Endocrinology at [facility] Luz Stallings MD [facility] [place] [address] ENDOCRINOLOGY DEPT [phone] [place], [place] [address] (Wo lissa) Social History Tobacco [...] Vitaliy Nobles MD [facility] ER [address] CARLYLE SARAB[place] [id number] (Wo rk) 05/28/2022 Appointment Cardiology Zulma Dolan MD [facility] er Dr [place] [id number] (Wo rk) 05/28/2022 Laboratory Appointment Lab 05/28/2022 Office Visit Cardiology Zulma Dolan MD [facility] [place] [address] Liz Poole PA [facility] [place] [address] 06/10/2022 Office Visit Dermatology Laura Scherer MD [facility] ER DR TEJA GR-DERMAT [place], [place] [address] (Wo rk) documented as of this encounter Visit Diagnoses Not on filedocumented in this encounter Care Teams Molder Relationship Specialty Start Date End Date Lovely Vicente MD PCP - General 04/16/[address] [place] [address] documented as of this encounter
--- OUTSIDE RECORDS SUMMARY | 2022-03-13 11:03 | XMS_ITS | Encounter Summary ---
:1945 Author Organization [facility] [place] [address] Care Team Providers Name Role Phone Lovely Vicente MD Primary Care Provider Encounter Details Date Type Department Care Team Description 11/28/2016 Telephone Dermatology at [facility] Rigoberto Garcia III, [address] [place] [address] [facility] [phone] [facility] SIMÓN-DERMAT [place], [place] [address] (Wo rk) Social History Tobacco [...] provider. Rigoberto Garcia MD Section of Dermatology [facility] documented in this encounter Plan of Treatment Upcoming Encounters Date Type Specialty Care Team Description 03/26/2022 Office Visit Cardiology Vitaliy Nobles MD [facility] [address] THOMAS [place], [place] [address] (Wo rk) 05/28/2022 Appointment Cardiology Zulma Dolan MD [facility] [address] [place] [address] (Wo rk) 05/28/2022 Laboratory Appointment Lab 05/28/2022 Office Visit Cardiology Zulma Dolan MD [facility] [place] [address] Liz Poole PA [facility] [place] [address] 06/10/2022 Office Visit Dermatology Laura Scherer MD [facility] DR TEJA MARIE-DERMAT [place], [place] [address] (Wo rk) documented as of this encounter Visit Diagnoses Not on filedocumented in this encounter Care Teams Publications Manager Relationship Specialty Start Date End Date Lovely Vicente MD PCP - General 04/16/[address] [place] [address] documented as of this encounter
--- OUTSIDE RECORDS SUMMARY | 2022-03-13 11:03 | XMS_ITS | Encounter Summary ---
:1945 [place] [address] Care Team Providers Name Role Phone Lovely Vicente MD Primary Care Provider Reason for Visit Reason Onset Date Comments Other 12/09/2016 RESULTS Encounter Details Date Type Department Care Team Description 12/09/2016 Telephone Dermatology at [facility] Halima Cadet MD Other (RESULTS) [address] [facility] [place] [address] [facility] [phone] [place], [place] [address] (Wo rk) Social History Tobacco [...] EDT Spoke with patient's , Kisha (personal office services representative). I advised her Don's pathology results [...] back. She can be reached back at [phone] documented in this encounter Plan of Treatment Upcoming Encounters Date Type Specialty Care Team Description 03/26/2022 Office Visit Cardiology Vitaliy Nobles MD [facility] DR TADE[address] [place], [place] [address] (Wo rk) 05/28/2022 Appointment Cardiology Zulma Dolan MD [facility] [place], [place] [address] (Wo rk) 05/28/2022 Laboratory Appointment Lab 05/28/2022 Office Visit Cardiology Zulma Dolan MD [facility] [place] [address] Liz Poole PA [facility] [place] [address] 06/10/2022 Office Visit Dermatology Laura Scherer MD [facility] [address]-DERMAT [place], [place] [address] (Wo rk) documented as of this encounter Visit Diagnoses Not on filedocumented in this encounter Care Teams Supervisor Inspection Department Relationship Specialty Start Date End Date Lovely Vicente MD PCP - General 04/16/[address] [place] [address] documented as of this encounter
--- OUTSIDE RECORDS SUMMARY | 2022-03-13 11:03 | XMS_ITS | Encounter Summary ---
:1945 Author Organization [facility] [place] [address] Care Team Providers Name Role Phone Lovely Vicente MD Primary Care Provider Reason for Visit Reason Comments Thyroid Cancer Encounter Details Date Type Department Care Team Description 06/05/2015 Office Visit Endocrinology at [facility] Albertina Prescott, History of papillary [facility] MD Luz adenocarcinoma of [facility] thyroid (Primary Dx) [place] [address] CENTER [phone] [place] [address] Social History Tobacco Use Types Packs/Day Years [...] the thyroid gland were obtained using a Zeenshare ultrasound machine. All measurements are given as AP x Transverse x Longitudinal Right Lobe: Absent Left Lobe: Absent Isthmus: Absent Central/Lateral neck: no morphologically abnormal lymph nodes. Impression: No sonographic evidence of recurrence. LUZ PRESCOTT MD Screen Operatoroutbound sales advisor Section of Endocrinology [facility] Luz Prescott MD - 06/05/2015 8:21 AM [...] Drum (ACCU-CHEK COMPACT TEST) Strip by [facility]Non-Drug; Combo Route) route 2 times daily. Yes [...] --f/u in 1 year LUZ PRESCOTT MD Screen Operatoroutbound sales advisor Section of Endocrinology [facility] documented in this encounter Miscellaneous Notes Addendum [...] Nobles MD [facility] DR CARLYLE [place], [place] [address] (Wo rk) 05/28/2022 Appointment Cardiology Zulma Dolan MD [facility] Dr [place], [place] [address] (Wo rk) 05/28/2022 Laboratory Appointment Lab 05/28/2022 Office Visit Cardiology Zulma Dolan MD [facility] [place] [address] Liz Poole PA [facility] [place] [address] 06/10/2022 Office Visit Dermatology Laura Scherer MD [facility] DR [address]-DERMAT OGY [place], [place] [address] (Wo rk) documented as [...] than those obtained with T4 withdrawal protocol (Grant BR et al. J Clin Endo Metab 1999;84:7332-6692). 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
--- OUTSIDE RECORDS SUMMARY | 2022-03-13 11:03 | XMS_ITS | Encounter Summary ---
:1945 Author Organization [facility] [place] [address] Care Team Providers Name Role Phone Lovely Vicente MD Primary Care Provider Encounter Details Date Type Department Care Team Description 09/03/2016 Laboratory Appointment Lab at [facility] [place] [address] Social History Tobacco Use Types Packs/Day Years [...] Nobles MD [facility] ER [address] [place]LE [place], [place] [address] (Wo rk) 05/28/2022 Appointment Cardiology Zulma Dolan MD [facility] Dr [place] [address] (Wo rk) 05/28/2022 Laboratory Appointment Lab 05/28/2022 Office Visit Cardiology Zulma Dolan MD [facility] [place] [address] Liz Poole PA [facility] [place] [address] 06/10/2022 Office Visit Dermatology Laura Scherer MD [facility] ER DR TEJA GR-DERMAT O[place], [place] [address] (Wo rk) documented as of [...] EST) P athologist Signature Thyroglobulin <0.4 <=54.9 [facility] ng/mL [facility] LABORATORY Comment: Interpret with caution. Tg [...] BR et al. J Clin Endo Metab 1999;84:2008-1725). Assay performed using the Versaworkste T g immunometric assay. (lowest detection limit is <0.4 ng/ml). Thyroglob Ab <20.0 0.0 - 40.0 IU/mL [facility] LABORATORY Comment: Assay performed is the [...] Address City/State/ZIP Code Phon e Number [address] TSH (09/03/2016 11:07 AM EST) P athologist Signature TSH 3.01 0.27 - 4.20 [facility] mcIU/mL [facility] LABORATORY Specimen Anatomical Collection Method Collection Time Receive d Time (Source) Location / / Volume Laterality Blood specimen 09/03/2016 11:07 7 (specimen) AM EST 11:22 AM EST Resulting Agency Comment Spec In Lab Luz Prescott MD CHEMISTRY ORDERABLES Performing Organization Address City/[facility]/[place] [address] documented in this encounter Visit Diagnoses Diagnosis Hx of papillary thyroid carcinoma Personal history of malignant neoplasm o f thyroid documented in this encounter Care Teams Gunner'S Mate Relationship Specialty Start Date End Date Lovely Vicente MD PCP - General 04/16/[address] [place] [address] [address] [place] [address] documented as of this encounter
--- OUTSIDE RECORDS SUMMARY | 2022-03-13 11:03 | XMS_ITS | Encounter Summary ---
:1945 Author Organization [facility] [address] Care Team Providers Name Role Phone MiyaLokeshAngela STACIE Primary Care Provider Reason for Visit Reason Onset Date Comments Post-op Problem 04/05/2013 voiding trial Encounter Details Date Type Department Care Team Description 04/05/2013 Telephone Urology at [facility] Blade Smith, Post-op Problem [facility] (voiding [place]) [place] [address] UROLOGY DEPT [place] [id number] (Wo rk) Social History Tobacco Use Types [...] [facility] [address] TADE[address] [place], [place] [address] (Wo rk) 05/28/2022 Appointment Cardiology Zulma Dolan MD [facility] [address] [place], [place] [address] (Wo rk) 05/28/2022 Laboratory Appointment Lab 05/28/2022 Office Visit Cardiology Zulma Dolan MD [facility] [place] [address] Liz Poole PA [facility] [place] [address] 06/10/2022 Office Visit Dermatology Laura Scherer MD [facility] DR TEJA [address]MAT [place], [place] [address] (Wo rk) documented as of this encounter Visit Diagnoses Not on filedocumented in this encounter Care Teams Geophysics Teacher Relationship Specialty Start Date End Date Angela Holliday APRN PCP - General 01/25/13 04/15/[address] [place] [address] documented as of this encounter
--- OUTSIDE RECORDS SUMMARY | 2022-03-13 11:03 | XMS_ITS | Encounter Summary ---
:1945 Author Organization [facility] [place] [address] Care Team Providers Name Role Phone Lovely Vicente MD Primary Care Provider Reason for Visit Reason Comments Nevus excision dysplastic nevus mi d upper abdomen Encounter Details Date Type Department Care Team Description 12/03/2016 Procedure visit Dermatology at [facility] Dysplastic nevus of Road MD Adrián trunk [address] [facility] [address] [facility] [phone] RD-DERMATOLGY [place] [address] Social History Tobacco Use Types Packs/Day Years [...] Halima Cordero MD during the day at [phone] Nurse: Mira [phone] Amy After 5 PM and on weekends, please call the hospital number , and ask for the Checking Department Supervisor retail client solutions consultant. documented in this encounter Progress Notes Halima Cordero MD - 12/10/2016 5:41 PM EDT Gwendolyn, Excision shows scar, there is no residual of the severely dysplastic nevus. Please notify patient and check on wound healing. Thank you, DTB Halima Cordero MD - 12/03/2016 3:00 PM EDT Images from the original note were not included. Dermatology Procedure note: Attending: Halima Cordero MD Blister Pack Operator: Mira James LPN Referring MD: Rigoberto [...] to call the clinic or the on-call train conductor over the weekend. ??? Name of Procedure? [...] MD [facility] [address] T[address] [place], [place] [address] (Wo rk) 05/28/2022 Appointment Cardiology Zulma Dolan MD [facility] [place], [place] [address] (Wo rk) 05/28/2022 Laboratory Appointment Lab 05/28/2022 Office Visit Cardiology Zulma Dolan MD [facility] [place] [address] Liz Poole PA [facility] [place] [address] 06/10/2022 Office Visit Dermatology Laura Scherer MD [facility] DR TEJA [address] [place], [place] [address] (Wo rk) documented as of [...] Patholo gist Range Method Time Signature Surgical [id number] ?Location: [facility] Report The signing pathologist [...] Clinical Diagnosis: Dysplastic nevus, see previous pathology [id number] SPECIMEN PROCESSING A - Labeled/Fixative: Mid-upper abdomen, [...] [place] [address] documented in this encounter Visit Diagnoses Diagnosis Dysplastic nevus of trunk Benign neoplasm of skin of trunk, except scrotum documented in this encounter Care Teams Airconditioning Plant Operator Relationship Specialty Start Date End Date Lovely Vicente MD PCP - General 04/16/[address] [place] [address] documented as of this encounter
--- OUTSIDE RECORDS SUMMARY | 2022-03-13 11:03 | XMS_ITS | Encounter Summary ---
:1945 Author Organization [facility] [place] [address] Care Team Providers Name Role Phone Angela Holliday STACIE Primary Care Provider Encounter Details Date Type Department Care Team Description 04/04/2013 Telephone Urology at [facility] Parker Sanchez MD [facility] [place] [address] UROLOGY DEPT [phone] [place], [place] 0[address] (Wo rk) Social History Tobacco [...] [facility] [address] [place] [address] (Wo rk) 05/28/2022 Appointment Cardiology Zulma Dolan MD [facility] [place], [place] [address] (Wo rk) 05/28/2022 Laboratory Appointment Lab 05/28/2022 Office Visit Cardiology Zulma Dolan MD [facility] [place] [address] Liz Poole PA [facility] [place] [address] 06/10/2022 Office Visit Dermatology Laura Scherer MD [facility] [address] TEJA [address] [place], [place] 0[address] (Wo rk) documented as of this encounter Visit Diagnoses Not on filedocumented in this encounter Care Teams Cardio Tech Relationship Specialty Start Date End Date Angela Holliday APRN PCP - General 01/25/13 04/15/[address] [place] [address] documented as of this encounter
--- OUTSIDE RECORDS SUMMARY | 2022-03-13 11:03 | XMS_ITS | Encounter Summary ---
:1945 Author Organization [facility] [place] [address] Care Team Providers Name Role Phone Angela Holliday APRN Primary Care Provider Reason for Visit Reason Comments Benign Prostatic Hypertrophy Encounter Details Date Type Department Care Team Description 11/28/2013 [place] [facility] Blade Smith, Urinary retention (Primary D x); [facility] BPH (benign prostatic hyperplasia) [place] [address] UROLOGY DEPT [place], [place] 0[address] (Wo rk) Social History Tobacco [...] Nobles MD [facility] [address] TADE[address] [place], [place] [address] (Wo rk) 05/28/2022 Appointment Cardiology Zulma Dolan MD [facility] [place], [place] [address] (Wo rk) 05/28/2022 Laboratory Appointment Lab 05/28/2022 Office Visit Cardiology Zulma Dolan MD [facility] [place] [address] Liz Poole PA [facility] [place] [address] 06/10/2022 Office Visit Dermatology Laura Scherer MD [facility] DR TEJA [address] [place], [place] [address] (Wo rk) documented as of [...] Organization Address City/State/[place] [address] [facility] documented in this encounter Visit Diagnoses Diagnosis Urinary retention - Primary Retention of urine, unspecified BPH (benign prostatic hyperplasia) Unspecified hyperplasia of prostate with out urinary obstruction and other lower urinary tract symptoms (LUTS) documented in this encounter Care Teams Configuration Analyst Relationship Specialty Start Date End Date Angela Holliday APRN PCP - General 01/25/13 04/15/[address] [place] [address] documented as of this encounter
--- OUTSIDE RECORDS SUMMARY | 2022-03-13 11:03 | XMS_ITS | Encounter Summary ---
:1945 Author Organization [facility] [place] [address] Care Team Providers Name Role Phone Angela Holliday APRN Primary Care Provider Reason for Visit Reason Comments Other Encounter Details Date Type Department Care Team Description 08/01/2013 Telephone Dermatology at [facility] Rigoberto Garcia III, [address] [place] [address] [facility] [phone] TEJA MARIE-DERMAT [place], [place] [address] (Wo rk) Social History [...] them. Component Value Surgical Pathology Final Report [facility] Provider: RIGOBERTO GARCIA III Pt. Name: DON HOANG Acc #: [id number] Pt. Col Date: 07/31/2013 /Sex: 1945,(68 years),Male Rec Date: 07/31/2013 LOC: [facility] SURGICAL PATHOLOGY ---Pathologic Diagnosis--- Skin, [...] MD [facility] [address] [place] [place], [place] 0[address] (Wo rk) 05/28/2022 Appointment Cardiology Zulma Dolan MD [facility] [address] [place] [address] (Wo rk) 05/28/2022 Laboratory Appointment Lab 05/28/2022 Office Visit Zulma Garrison MD [place] [address] Liz Poole PA [facility] [place] [address] 06/10/2022 Office Visit Dermatology Laura Scherer MD [facility] ER DR TEJA MARIE-DERMAT [place], [place] [address] (Wo rk) documented as of this encounter Visit Diagnoses Not on filedocumented in this encounter Care Teams Bag Liner Relationship Specialty Start Date End Date Angela Holliday APRN PCP - General 01/25/13 04/15/[address] [place] [address] documented as of this encounter
--- OUTSIDE RECORDS SUMMARY | 2022-03-13 11:03 | XMS_ITS | Encounter Summary ---
:1945 Author Organization [facility] [place] [address] Care Team Providers Name Role Phone Som Holliday APRN Primary Care Provider Encounter Details Date Type Department Care Team Description 04/11/2014 Procedure visit Gastroenterology at [facility], [facility] Esophageal reflux [facility] Luz Winchester RN (Primary Dx) [place] [address] Social History Tobacco Use Types Packs/Day Years Used Date Former Smoker Alcohol Use Standard Drinks/Week Comments No 0 (1 standard drink = 0.6 oz pure alcoho l) Sex Assigned at Date Recorded Not on file documented as of this encounter Progress Notes Adalid Can MD - 04/13/2014 3:43 PM EDT ESOPHAGEAL MANOMETRY Don Fatima Male, 69 yrs, 1945 PCP: SOM HOLLIDAY EVENT SET UP SPECIALIST: NONE STUDY DATE: 04/11/14 PROVIDER: Adal[place] ([id number]) INDICATION Reflux; preoperative evaluation. METHODS Stationary esophageal manometry was performed with the Neterion esophageal motility system utilizing the Polygram software [...] of the esophagus. Adalid Can, PhD, MD camp housekeeper, [facility], [employer] Section of Gastroenterology and Hepatology [facility] [place] [address] V: [phone] F: [phone] [employer] [facility] [employer] [facility]/gabriela CC/EC: PCP - staff msg copy 04/13/14 Henrique Taylor MD - fax copy 04/13/14 Luz Keller RN - 04/11/2014 8:14 AM EDT Esophageal manometry performed without difficulty and Was well tolerated. documented in this encounter Plan of Treatment Upcoming Encounters Date Type Specialty Care Team Description 03/26/2022 Office Visit Cardiology Vitaliy Nobles MD [facility] [address] TADE[address] [place], [place] [address] (Wo rk) 05/28/2022 Appointment Cardiology Zulma Dolan MD [facility] [address] [place], [place] [address] (Wo rk) 05/28/2022 Laboratory Appointment Lab 05/28/2022 Office Visit Cardiology Zulma Dolan MD [facility] [place] [address] Liz Poole PA [facility] [place] [address] 06/10/2022 Office Visit Dermatology Laura Scherer MD [facility] DR TEJA [address] [place], [place] [address] (Wo rk) documented as of this encounter Visit Diagnoses Diagnosis Esophageal reflux - Primary documented in this encounter Care Teams Ssis Architect Relationship Specialty Start Date End Date Som Holliday APRN PCP - General 01/25/13 04/15/[address] [place] [address] documented as of this encounter
--- OUTSIDE RECORDS SUMMARY | 2022-03-13 11:03 | XMS_ITS | Encounter Summary ---
:1945 Author Organization [facility] [place] [address] Care Team Providers Name Role Phone Lovely Vicente MD Primary Care Provider Encounter Details Date Type Department Care Team Description 09/03/2016 Office Visit Endocrinology at [facility] Maria Ines Stallings of [facility] MD Lu[place] [address] [place] [address] ENDOCRINOLOGY DEPT [place], [place] [address] Social History Tobacco Use Types [...] 3 year HISTORY OF PRESENT ILLNESS: Mr. Dno Fatima is a 71 y.o. year [...] to his magnesium pill. LUZ PRESCOTT MD Boiler Tube Reamersafety coordinator Section of Endocrinology [facility] uLz Prescott MD - 09/03/2016 11:30 AM EST [...] sonographic evidence of recurrence. LUZ PRESCOTT MD Boiler Tube Reamersafety coordinator Section of Endocrinology [facility] documented in this encounter Plan of Treatment Upcoming Encounters Date Type Specialty Care Team Description 03/26/2022 Office Visit Cardiology Vitaliy Nobles MD [facility] DR T[address] [place], [place] [address] (Wo rk) 05/28/2022 Appointment Cardiology Zulma Dolan MD [facility] [place], [place] 0[address] (Wo rk) 05/28/2022 Laboratory Appointment Lab 05/28/2022 Office Visit Cardiology Zulma Dolan MD [place] [address] Liz Poole PA [facility] [place] [address] 06/10/2022 Office Visit Dermatology Laura Scherer MD [facility] DR TEJA [place] [facility] [place], [place] [address] (Wo rk) documented as of this encounter Results Thyroglobulin (09/07/2017 2:41 PM EST) athologist Signature Thyroglobulin 1.4 <=54.9 KATALINA RYAN ng/mL [facility] Comment: Thyroglobulin levels may be [...] [facility]/ZIP Code Phon e Number [address] TSH (09/07/2017 2:41 PM EST) P athologist Signature TSH 3.93 0.27 - 4.20 [facility] mlU/ML [facility] Specimen Anatomical Collection Method Collection Time Receive d Time (Source) Location / / Volume Laterality Blood specimen 09/07/2017 2:41 PM 018 2:46 (specimen) EST PM EST Resulting Agency Comment Spec In Lab Luz Prescott MD CHEMISTRY ORDERABLES Performing Organization Address City/[facility] Phon e Number [address] Thyroglobulin (09/03/2016 11:07 AM EST) P athologist Signature Thyroglobulin <0.4 <=54.9 [facility] ng/mL [facility] Comment: Interpret with caution. Tg [...] than those obtained with T4 withdrawal protocol ([place] BR et al. J Clin Endo Metab 1999;84:2582-6570). Assay performed using the DPC Immulite T [...] [facility]/ZIP Code Phon e Number [address] TSH (09/03/2016 11:07 AM EST) P athologist Signature TSH 3.01 0.27 - 4.20 [facility] mcIU/mL [facility] Specimen Anatomical Collection Method Collection Time Receive d Time (Source) Location / / Volume Laterality Blood specimen 09/03/2016 11:07 7 (specimen) AM EST 11:22 AM EST Resulting Agency Comment Spec In Lab Luz Prescott MD CHEMISTRY ORDERABLES Performing Organization Address City/[facility]/ZIP [place] [address] documented in this encounter Visit Diagnoses Diagnosis Hx of papillary thyroid carcinoma Personal history of malignant neoplasm o f thyroid documented in this encounter Care Teams Senior Label Specialist Relationship Specialty Start Date End Date Lovely Vicente MD PCP - General 04/16/[address] [place] [address] documented as of this encounter
--- OUTSIDE RECORDS SUMMARY | 2022-03-13 11:03 | XMS_ITS | Encounter Summary ---
:1945 [place] [address] Care Team Providers Name Role Phone Lovely Vicente MD Primary Care Provider Reason for Visit Auth/Cert Specialty Diagnoses / Procedures Referred By Contact Refer red To Contact Diagnoses STEMI (ST elevation myocardial infarction) NSTEMI STEMI Procedures CARDIAC CATHETERIZATION NAYE IPI Referral ID Status Reason Start Date Expiration Date Visits Requ ested Visits Authorized [id number] 1 1 Encounter Details Date Type Department Care Team Description 07/05/2017 Surgery [place] Planner Jet Guan, CARDIAC CATHETERIZATION [facility] [place] [address] CARDIOLOGY DEPT. [phone] [place], [place] [address] (Wo rk) Social History Tobacco [...] this encounter Discharge Summaries Martha Teague S, SENIOR GRAPHIC DESIGNER - 07/14/2017 9:38 AM EST Inpatient - Discharge Summary Patient Name: Gregory Hoang Patient Age: 72 y.o. Birthdate: 1945 Language: German Race: White Ethnicity: Not nor Admit Date: [...] , @ 1:20p Patient to follow-up with Director Of Guidance/heart failure team in one week. An appointment will be made for you. You may call [phone] Patient to follow-up with Cardiac Surgery, Dr. Yuan Webber, in ~ 4 weeks with CXR, EKG. Inpatient Provider Contact Information: [facility] Section of Cardiac Surgery [facility] [address] FAX [phone] Discharge Diagnoses (Hospital Problems) Primary Diagnoses: CAD [...] SETUP performed by Manny Mcknight MD at [facility] OR ??? PRO CABG, ARTERIAL, SINGLE N/A 07/07/2017 @CABG, USING ARTERIAL GRAFT;SINGLE ARTERIAL GRAFT (WRVU 33.75) performed by Yuan Webber MD at [facility] OR ??? PRO CABG, ARTERY-VEIN, TWO N/A 07/07/2017 @CABG, TWO VENOUS GRAFTS & ARTERIAL GRAFT (WRVU 7.93) performed by Yuan Webber MD at [facility] OR ??? PRO COLONOSCOPY, REMV LESN, SNARE 01/16/2014 COLONOSCOPY, POLYPECTOMY, REMOVAL LESION BY SNARE performed by Nohemi Jaimes MD at [facility] ENDOSCOPY ??? PRO ENDOSCOPY W/VIDEO-ASST VEIN HARVEST, CABG Right 07/07/2017 ENDOSCOPIC HARVEST VEIN(S) FOR CABG (WRVU 0.31) performed by Yuan Webber MD at [facility] OR ??? PRO THYROIDECTOMY 03/28/2013 THYROIDECTOMY, TOTAL OR COMPLETE performed by Manny Mcknight MD at [facility] OR Prior To Admission Medications Prescriptions Prior to Admission Medication Sig Dispense Refill Last Dose ??? levothyroxine (SYNTHROID) 175 mcg Tablet Take 1 tablet by mouth daily. 90 tablet 3 07/05/2017 [id number] ??? ascorbic acid, vitamin C, (VITAMIN C) [...] Gregory Hoang was admitted to [facility] on 07/05/2017 via the Cardiology Service. During his hospital course, he was taken emergently to the label maker for an ongoing STEMI. An IABP was [...] not take or discontinue any prescription or txnz-xxt-aplgskz medications without asking your doctor or pharmacist [...] day to have your insulin doses adjusted. [facility] Endocrine clinic office [...] Yuan Webber and/or the Cardiac Surgery Physician Consultant Dietitian Team may be reached at . Weight: [...] Dr. Yuan Webber. You may use a [place] Track or treadmill but avoid any pulling [...] friends, go to a movie, go to confucianism, etc. Heavy activities: No hunting, skiing, jogging, snow shoveling, snowmobiling, lawn mowing, swimming, golf or tennis until after your return appointment with the surgeon. Do not ride motorcycles, Dwellable tractors or horses. Avoid the use of [...] should resume a low fat, low cholesterol, [place] Heart [employer] Diet/Diabetic diet. Driving: No driving [...] , @ 1:20p Patient to follow-up with Director Of Guidance/heart failure team in one week. Appointment will be made for you. You may call [phone] Patient to follow-up with Cardiac Surgery, Dr. Yuan Webber, in ~ 4 weeks with CXR, EKG. Cardiac Rehabilitation: Gregory Hoang was seen today regarding participation in the outpatient Phase 2 Cardiac Rehabilitation at [facility]. The patient agrees to a referral to this program. The referral will be sent at discharge and the patient should be contacted by the Program within 1- 2 weeks from discharge. ?? Future Appointments and Orders Future Appointments Provider Department Dept Phone 09/07/2017 3:00 PM LAB, THREE L Lab 3L [facility] [phone] 09/07/2017 4:00 PM Luz Prescott MD Endocrinology at [facility] [phone] Future Orders Complete By Expires EKG 12 Lead [EKG1 Custom] 08/14/2017 02/13/2018 Process Instructions: Scheduling Instructions: Questions: Which DH location will this be performed?: [facility] Is a rhythm strip needed?: No If EKG Reason is Pre-op Evaluation, indicate diagnosis for surgery.: XR Chest PA & Lateral (Generic) [[id number] Custom] 08/14/2017 02/13/2018 Process Instructions: Scheduling Instructions: Questions: Where will study be performed?: [facility] Portable exam?: Reason for exam and clinical history: CABG x 3 Other pertinent information: Stat read required?: Date of injury if applicable: Requested Time: Referral to Cardiac Rehab [IKT450 Custom] As directed Process Instructions: If no progress note charted, please enter Clinical details in comments. Scheduling Instructions: Questions: My question or request is: s/p CABG. Cardiac rehab at [facility] Referral to Home Health - at DISCHARGE [NOI2093 CPT(R)] As directed Process Instructions: Scheduling Instructions: Comments: DOCUMENTATION FOR VNA SERVICES (INCLUDING THOSE PATIENTS WITH MEDICARE COVERAGE REQUIRING HOME VNA SERVICES AND/OR HOSPICE SERVICES) PATIENT'S LOCATION: Gregory Hoang [address] [place] [address] [place] [address] (home) Telephone Information: Environment Friendly Landscape Designer's Name: self In discussion with the attending physician, it is certified that this patient is under their care and that they, or a Nurse Practitioner, or Physician Consultant Dietitian who is working directly with them, had [...] HEALTH AGENCY: [facility] ([facility] [place] [facility]-is in [place], [place]) PHONE: [phone] FAX: [phone] RN orders: Cardiopulmonary assessment, incisional assessment, assess vital signs, assessment of rehab progress, medication management and effectiveness, home safety evaluation. Please draw INR if indicated and send result to:Dr Vicente [phone] PT ORDERS: Continue rehab for endurance, gait stability and strength with mobility and transfers. Home safety evaluation. Home exercise program if appropriate. Start of Care Date:24-48 hours after discharge SPECIAL INSTRUCTIONS: For any follow up questions, needs, or issues please call the Cardiac Surgery Office at [phone] FOR MEDICARE ONLY: (please delete this section [...] OR AFTER 07/17/2017 Signed: Martha Teague APRN [facility] Section of Cardiac Surgery [facility] [phone] FAX [phone] Date: 07/14/2017 CC: MD Ivania Cr Betsy, PA [address] [place] [phone] documented in this encounter Discharge Instructions Discharge [...] day to have your insulin doses adjusted. [facility] Endocrine clinic office [...] not take or discontinue any prescription or uymy-fiv-druvyqw medications without asking your doctor or pharmacist [...] day to have your insulin doses adjusted. [facility] Endocrine clinic office [...] Yuan Webber and/or the Cardiac Surgery Physician Consultant Dietitian Team may be reached at . ?? [...] Dr. Yuan Webber. You may use a [place] Track or treadmill but avoid any pulling [...] friends, go to a movie, go to confucianism, etc. ?? Heavy activities: No hunting, skiing, jogging, snow shoveling, snowmobiling, lawn mowing, swimming, golf or tennis until after your return appointment with the surgeon. Do not ride motorcycles, Spokeable's tractors or horses. Avoid the use of [...] should resume a low fat, low cholesterol, [place] Heart Association Diet/Diabetic diet. ?? Driving: No [...] @ 1:20p ?? Patient to follow-up with Director Of Guidance/heart failure team in one week. An appointment has been made for you, you can call [phone] ?? Patient to follow-up with Cardiac Surgery, Dr. Yuan Webber, in ~ 4 weeks with CXR, EKG. ? Cardiac Rehabilitation: Gregory Hoang??was seen today regarding participation in the outpatient Phase 2 Cardiac Rehabilitation at [facility]. ?? The patient agrees to a referral to this program.? The referral will be sent at discharge and the patient should be contacted by the Program within 1- 2 weeks from discharge. ? Future Appointments and Orders Future Appointments Provider Department Dept Phone ?? 09/07/2017 3:00 PM LAB, THREE L Lab 3L [facility] [phone] ?? 09/07/2017 4:00 PM Luz Prescott MD Endocrinology at [facility] [phone] Future Orders Complete By Expires ?? EKG 12 Lead [EKG1 Custom] 08/14/2017 02/13/2018 ?? Process Instructions: ? Scheduling Instructions: ? Questions: ? Which location will this be performed?: [facility] ?? Is a rhythm strip needed?: No ?? If EKG Reason is Pre-op Evaluation, indicate diagnosis for surgery.: ?? XR Chest PA & Lateral (Generic) [[id number] Custom] 08/14/2017 02/13/2018 ?? Process Instructions: ? Scheduling Instructions: ? Questions: ? Where will study be performed?: [facility] ?? Portable exam?: ?? Reason for exam and clinical history: CABG x 3 ?? Other pertinent information: ?? Stat read required?: ?? Date of injury if applicable: ?? Requested Time: ?? Referral to Cardiac Rehab [[id number] Custom] As directed ? Process Instructions: ?? If no progress note charted, please enter Clinical details in comments. ?? Scheduling Instructions: ? Questions: ? My question or request is: s/p CABG. Cardiac rehab at [facility] ? Arrangements for VNA/home care: As [...] RN - 07/14/2017 2:34 PM EST The patient/open claims representative has been provided a list of Home Health Agencies/DME vendors which serve their preferred geographic area. A letter describing our affiliations was reviewed with them and theywere educated about their right to choose where referrals are placed. Patient requests referral to [facility]. PHONE: [phone] FAX: [phone] Expected date of discharge: 07/14 Referral routed to the Sap Functional Analyst for matching with agency/vendor and to [...] day to have your insulin doses adjusted. [facility] Endocrine clinic office Kathie Carrera APRN [facility] Endocrinology Diabetes Management Pager [phone] 20 minutes of this 35 minute visit was spent with the patient in counseling on diabetes and treatment plan, reviewing all glucose and insulin data as well as relevant laboratory results with the patient, and coordination of care on the inpatient unit including nursing and primary team. Zulma Andres RN - 07/14/2017 10:30 AM EST The patient/open claims representative has been provided a list of Home Health Agencies/DME vendors which serve their preferred geographic area. A letter describing our affiliations was reviewed with them and theywere educated about their right to choose where referrals are placed. Patient requests referral to : [facility] ([facility] [place] [facility]-is in [place]) PHONE: [phone] FAX: [phone]. Expected date of discharge: 07/14/17 Referral routed to the Sap Functional Analyst for matching with agency/vendor and to [...] #6 s/p CABG X3. [facility]SB[facility] [address] at [place], reports no symptoms but did drink some [...] Will continue to follow Katerin Azul APRN [facility] Endocrinology Diabetes Management Pager [phone] minutes of this 25 minute visit [...] of infiltration/extravasation Discussed plan of care with BUSINESS INTEGRATION ANALYST and RN. Elevate exrtemity and apply [...] measuring tape and identifier in the photo) BAT LATHE OPERATOR CARING FOR THIS PATIENT WILL CONTINUE [...] measuring tape and identifier in the photo) BAT LATHE OPERATOR CARING FOR THIS PATIENT WILL CONTINUE [...] regard to both infiltrates addressed by this automatic typewriter inspector.All of Mr. Hoang's responses were entirely appropriate. Images of infiltrates attached here. Martha Sharp APRN - 07/13/2017 8:01 AM EST Cardiac Surgery Progress Note: ID: [id number] 72 year old male POD#6 s/p CABGx3 [...] discharge. ?? I have met with the patient/open claims representative to discuss discharge planning needs. I have provided the [facility], Office of Care Management letter from the Director Of [facility] pertaining to rehab referrals. I have also provided a letter describing our affiliations within the [facility] and educated them about their right to choose where referrals are placed. ?? I reviewed the different levels of rehab including SNF, swing, acute and LTAC with the patient/open claims representative. ?? The patient/open claims representative has been provided a list of facilities within their preferred geographic area. ?? I have requested that the patient/open claims representative provide at least three choices for referral. ?? The patient/open claims representative have requested referrals to: ?? 1. . ?? 2. [facility] ?? 3. More to be entered ?? Expected date of discharge: 07/14 Note routed to Sap Functional Analyst who will communicate referrals to facilities and [...] hours. If BG remains greater than 240, [id number] units (no more than three times) & [...] Will continue to follow Katerin Azul APRN [facility] Endocrinology Diabetes Management Pager [phone] 20 minutes of this 35 minute visit was spent with the patient in counseling on diabetes and treatment plan, reviewing all glucose and insulin data as well as relevant laboratory results with the patient, and coordination of care on the inpatient unit including nursing and primary team. Makayla Stevenson APRN - 07/12/2017 9:52 AM EST Cardiac Surgery Progress Note: ID: [id number] 72 year old male POD#5 s/p CABGx3 with pre-operative placed IABP for severe LV dysfunction. pmhx pertinent for HTN, CHF, CAD, nSTEMI, IDDM, MARIA V[place]OR[place], BPH, thyroid carcinoma s/p thyroidectomy melanoma EF- [...] 07/11/2017 7:18 PM EST Patient arrived from [facility]. VSS. MSI dressing pulled off [...] hours. If BG remains greater than 240, [id number] units (no more than three times) & [...] AM EST Cardiac Surgery Progress Note: ID: [id number] 72 year old male POD#4 s/p CABGx3 [...] hours. If BG remains greater than 240, [id number] units (no more than three times) & [...] AM EST Cardiac Surgery Progress Note: ID: [id number] 72 year old male POD#3 s/p CABGx3 [...] Gas) No results found for: PHART, PO2ART, FFB5OVO Assessment/Plan: 72 year old male POD#3 s/p [...] will add addition HF meds. Signed: Samy Mladonado MD Mami Thao - 07/09/2017 6:29 PM EST Corsage Maker Encounter Note Patient Name: Gregory Hoang : [id number] MR#: [id number] Admit Date: 07/05/2017 4:20 PM Hospital Day 4 days Narrative: Patient was sitting in chair, hugging heart pillow, opened his eyes, nodding to come into room Assessment: Patient was sleepy. Intervention and Outcome: Introduced open winder services and patient reached his hand out in appreciation. Follow-up: Corsage Maker remains available for support. Time in Direct [...] AM EST Report given to technical staff engineer to cover care Maddison Cee PA - 07/09/2017 9:00 AM EST Cardiac Surgery Progress Note: ID: [id number] 72 year old male POD#2 s/p CABGx3 [...] on rounds. Signed: STEPHANIE Iqbal [facility] Section of Cardiac Surgery Date: 07/09/2017 [place] [...] when IABP d/c'ed. Gretchen Carolina, PT Pager [phone] Maddison Cee PA - 07/08/2017 11:27 AM EST Cardiac Surgery Progress Note: ID: [id number] 72 year old male POD#1 s/p CABGx3 [...] on rounds. Signed: STEPHANIE Iqbal [facility] Section of Cardiac Surgery Date: 07/08/2017 Nick [...] in place in R femoral. No hematoma. COMPUTER SUPPORT ANALYST- Intact Psych- Anxious Skin- Dry, no peripheral [...] intact. IABP in place in R femoral. COMPUTER SUPPORT ANALYST- Intact Psych- Anxious Skin- Dry, no peripheral [...] note for details. DAPHNE SHAHID MD Pager [phone] Jet Mckenna MD - 07/05/2017 6:48 PM EST Preliminary Cardiac Catheterization Procedure Note: Procedure(s) performed: Left heart cath, IABP insertion Access: Right TREE WORKER-->8fr IABP A time-out was conducted prior [...] Heparin gtt maintained. Pt transferred to label maker. documented in this encounter H&P Notes Daphne Shahid MD - 07/05/2017 6:08 PM EST CARDIOLOGY HISTORY & PHYSICAL EXAM Date of Admission: 07/05/2017 ( Hospital Day 0 days ) Responsible Attending: Daphne Shahid MD PCP: Lovely Vicente MD PCP#: [phone] Patient Active Problem List Diagnosis Code ??? [...] load with heparin drip and transferred to [facility]. While there, continued sob, question of chest pain. Stat TTE showing WMA diffusely and EF around 20%. No significant valvular disease. Taken to the label maker urgently for ongoing STEMI. [facility] Labs: INR 1.0 WBC 5.88 Hgb [...] I/O - s/p lasix in the label maker, redose to aim net neg 1L by [...] Medicine, PGY-2 Cardiology S1, Team Pager # [phone] CARDIOLOGY ATTENDING NOTE Patient: Gregory Hoang Date [...] amenable for PCI. DAPHNE SHAHID MD Pager [phone] documented in this encounter Miscellaneous Notes Consult Note - Daphne Shahid MD - 07/14/2017 11:46 AM EST Heart Failure Service Inpatient Consult Note Gregory Hoang Date of : 1945 Age: 72 y.o. Today's date: 07/14/17 PCP: Lovely Vicente MD INDUSTRIAL NURSE: None Place of Service: [facility] Reason for Consult: [...] SETUP performed by Manny Mcknight MD at [facility] OR ??? PRO CABG, ARTERIAL, SINGLE N/A 07/07/2017 @CABG, USING ARTERIAL GRAFT;SINGLE ARTERIAL GRAFT (WRVU 33.75) performed by Yuan Webber MD at [facility] OR ??? PRO CABG, ARTERY-VEIN, TWO N/A 07/07/2017 @CABG, TWO VENOUS GRAFTS & ARTERIAL GRAFT (WRVU 7.93) performed by Yuan Webber MD at [facility] OR ??? PRO COLONOSCOPY, REMV LESN, SNARE 01/16/2014 COLONOSCOPY, POLYPECTOMY, REMOVAL LESION BY SNARE performed by Nohemi Jaimes MD at [facility] ENDOSCOPY ??? PRO ENDOSCOPY W/VIDEO-ASST VEIN HARVEST, CABG Right 07/07/2017 ENDOSCOPIC HARVEST VEIN(S) FOR CABG (WRVU 0.31) performed by Yuan Webber MD at [facility] OR ??? PRO THYROIDECTOMY 03/28/2013 THYROIDECTOMY, TOTAL OR COMPLETE performed by Manny Mcknight MD at [facility] OR Outpt Meds: Current Outpatient [...] following studies: EKG 07/14/17: NSR 75 bpm, ASSEMBLER DC FIELD RING anterior infarct, LAD CXR 07/11/17: FINDINGS: Sternotomy wires. The patient has been extubated, left chest tube removed, and Waverly-Suzi catheter removed since the 07/07/2017 study. Atelectasis [...] was discussed with Zehra. Jaden Kelley MD Security Nurse Pager [phone] CARDIOLOGY ATTENDING NOTE Patient: Gregory Hoang Date [...] heart failure clinic. DAPHNE SHAHID MD Pager [phone] Plan of Care - Alden Chavarria PTA [...] home with assist Alden Chavarria PTA Pager: [phone] Inpatient Physical Therapy Problem: Acute Rehab Services [...] sit/sit to supine -- Bed Mobility Goal, [place] Level supervision required -- Bed Mobility Goal, [...] - 3 days -- Gait Training Goal, [place] Level supervision required -- Gait Training Goal, [...] days -- Transfer Training Goal, Activity Type jep-vs-lhvfy/siesj-kv-qhq;tqt-rs-fucsv/fiwpz-ra-ocm;toilet -- Transfer Train Goal, [place] Level supervision required -- Transfer Training Goal, [...] keeping present for 2 days per family. Fire Control Mechanic noted of frustrations, house keeping sent to room. Patient offered showered twice, refused. at bedside, frustrated that shower not complete, informed that patient had refused several times. requesting to see DESIGN DRAFTSMAN, paged sent to Martha, will come to bedside (middle of consult). not willing to wait, Martha notified that family had gone home. Encouraged to come for morning rounds a t 8am. Diabetes team at bedside - insulin adjustments made. Call cabello in reach. Continue to monitor. PLAN MOVING FORWARD: Ambulate, dressing changes BID, Please change drsg at 4am per Martha DESIGN DRAFTSMAN request. INDIVIDUALIZED FALL PREVENTION INTERVENTIONS: Patient-specific fall [...] levels on the lower side, 60ml of [place] juice given after a FS of 80. [...] Conf 07/13/17 0502 Interdisciplinary Rounds/Family Conf Participants outpatient case manager;dietitian/nutrition services;nursing;occupational therapy;patient;pharmacy;physical therapy;physician Plan of [...] monitoring required during toileting and ADLs]: RN BUSINESS INTEGRATION ANALYST Surveillance [continuous indirect monitoring]: Barrett Monitor CPG [...] Anticipated Discharge Disposition: home with assist Pager: [phone] CLARISSA SEGAL, PT 07/12/2017 Physical Therapy Rehabilitation [...] to sit/sit to supine Bed Mobility Goal, [place] Level supervision required Bed Mobility Goal, Additional Goal adheres to psternal precautions for transfer Goal: Gait Training Goal Stand Alone Therapy Goal Outcome: Ongoing (Interventions Implemented as Appropriate) 07/12/17 1225 Gait Training Goal Gait Training Goal, Date Established 07/12/17 Gait Training Goal, Time to Achieve 2 - 3 days Gait Training Goal, [place] Level supervision required Gait Training Goal, Assist [...] 3 days Transfer Training Goal, Activity Type xum-rt-srwof/nwexq-cj-idl;pav-bh-rjsxd/gkumn-ee-owc;toilet Transfer Train Goal, [place] Level supervision required Transfer Training Goal, Additional Goal adheres to sternal precautions during transfer Consult Note - Octavia Vaughn RN - 07/12/2017 10:50 AM EST [facility] CARDIAC REHABILITATION Gregory Hoang was seen today regarding participation in the outpatient Phase 2 Cardiac Rehabilitation at [facility]. The patient agrees to a referral [...] IV site, amio to other piv and MANAGER ORACLE RETAIL at bedside to help assess, IV removed. [...] staff, he stood and marched in place. Ecru weak, wanting to sit back down. Remained [...] Health/Prescription Coverage: Primary Insurance: MEDICARE Secondary Insurance: [email or web address] [place] Prescription Coverage: yes Preferred Pharmacy: [facility] Other: none Primary Care Provider: Lovely Vicente MD [phone] Patient/Caregiver Goals of Treatment:live and get my breath back Potential Needs for Transition of Care: Rehab/SNF: [facility] Home Health: NA DME: TBD Dialysis: na Community Resources: available Transportation: yes Other: none Anticipated Barriers to Discharge/Special Considerations: none Plan: Likely SNF Rehab before home A member of the Care Management team will continue to monitor progress, follow for continuity of care and assist with transition of care planning. ERLIN Weiss Pager: [phone] Consult Note - Kaetrin Azul RN - 07/09/2017 10:05 AM EST [...] potential to d/c gtt and start CF. buttermaker helper diabetes care: Medications - Outpatient treatment regimen recommendations pending based on the hospital course. Monitoring - continue BG tid ac & hs Diet - low fat/low carb diet Exercise - weight-bearing exercise 30 min/day, as tolerated Thank you for allowing us to provide care for your patient W/E coverage, Dr. Jeane Tatum, pager [phone] Katerin Azul APRN Endocrinology Diabetes Management Pager [phone] Plan of Care - Stephanie Godoy, RN [...] Webber MD - 07/07/2017 6:27 PM EST [facility] Operative Note Patient Name: Gregory Hoang : [id number] MR#: [id number] Case Date: 07/07/2017 Surgeon: Surgeon(s) and Role: * Yuan Webber MD - Primary * Michael Drake PA - Physician Consultant Dietitian * Linda Flores PA - Physician Consultant Dietitian Preoperative diagnosis: 3VD Postoperative diagnosis: CAD, severe [...] Operative Note Patient Name: Gregory Hoang : [id number] MR#: [id number] Case Date: 07/07/2017 Surgeon: Surgeon(s) and Role: * Yuan Webber MD - Primary * Michael Drake PA - Physician Consultant Dietitian * Linda Flores PA - Physician Consultant Dietitian Preoperative diagnosis: 3VD Postoperative diagnosis: CAD, severe [...] Hahn, MS3 [employer] [facility] Cardiology S1 (Pager [phone]) Plan of Care - Emelia Ibarra RN [...] at [facility] ENDOSCOPY ??? PRO THYROIDECTOMY 03/28/2013 THYROIDECTOMY, TOTAL OR COMPLETE performed by Manny Mcknight MD at [facility] MAIN OR Social History: Social History [...] with other involved physicians Yuan Webber MD [phone] Med Student Progress Note - Katty Hahn [...] BiPAP - s/p lasix in the label maker, was net -1.5L - s/p plavix load, [...] insulin drip - hold metformin - f/u [facility] ?? #Home Meds - continue levothyroxine 175mcg - CPAP at night ?? # Routine - DVT PPx: heparin drip - Diet: Healthy heart diet, NPO at midnight for CABG tomorrow - Code Status: FULL - Dispo: CVCC Katty Hahn, M3 [facility] Cardiology S1 (Pager [phone]) Plan of Care - Stephanie Godoy RN - 07/06/2017 5:00 AM EST Problem: Patient Care Overview Goal: Plan of Care Review 07/06/17 0846 Coping/Psychosocial Plan Of Care Reviewed With patient;family [...] urinal without difficulty. Lasix given in label maker, 1.4 L out at this time. Pt [...] Outcome: Ongoing (Interventions Implemented as Appropriate) 07/06/17 2946 Cardiac: ACS (Acute Coronary Syndrome) Problems Assessed [...] Nobles MD [facility] [address] [place], [place] [address] (Wo rk) 05/28/2022 Appointment Cardiology Zulma Dolan MD [facility] [address] [place], [place] [address] (Wo rk) 05/28/2022 Laboratory Appointment Lab 05/28/2022 Office Visit Cardiology Zulma Dolan MD [facility] [place] [address] Liz Poole PA [facility] [place] [address] 06/10/2022 Office Visit Dermatology Laura Scherer MD [facility] [address] [place], [place] [address] (Wo rk) Scheduled Orders Name [...] procedure are i n the results section. TOBACCO SORTER SCAN 07/15/2017 12:00 Res ults for this [...] Routine 07/08/2017 4:00 Results f or this ([facility]) AM EST procedure [...] Routine 07/07/2017 5:15 Results f or this ([facility]) AM EST procedure [...] Routine 07/06/2017 7:40 Results f or this ([facility]) PM EST procedure [...] Timed 07/06/2017 2:10 Results f or this ([facility]) PM EST procedure [...] section. TYPE AND SCREEN Routine 07/06/2017 12:00 ([facility]/SHANDA) PM EST APTT [...] Routine 07/06/2017 8:10 Results f or this ([facility]) AM EST procedure [...] Routine 07/06/2017 2:20 Results f or this ([facility]) AM EST procedure [...] Routine 07/05/2017 8:20 Results f or this ([facility]) PM EST procedure are i n the [...] 2017 EXAMINATION: XR CHEST PA AND LATERAL ([employer]Sw[employer]IC) CLINICAL HISTORY: CABG x 3 TECHNIQUE: PA [...] Teague APRN IMG DX ORDERABLES SCAN DOC: TOBACCO SORTER (07/15/2017 12:00 AM EST) Narrative 07/15/2017 12:00 [...] Signature POC Glucose 186 65 - 199 [facility] mg/dL [facility] Comment: [...] Organization Address City/State/[place] [address] POCT Glucose (07/14/2017 7:52 AM EST) athologist Signature POC Glucose 126 65 - 199 [facility] mg/dL [facility] Comment: [...] City/[facility]/ZIP [place] [address] (ABNORMAL) Prothrombin Time (07/14/2017 4:46 AM EST) athologist Signature PT 26.4 (H) 11.8 - 14.0 [facility] LABORATORY INR 2.4 (H) 0.9 - 1.1 [facility] [...] Wilson APRN HEMATOLOGY ORDERABLES Performing Organization Address City/[facility]/ZIP [place] [address] Potassium (07/14/2017 4:46 AM EST) athologist Signature Potassium 4.3 3.5 - 5.0 [facility] mmol/L [facility] Comment: Please note: ??Patients with [...] Address City/State/ZIP Code Phon e Number [address] POCT Glucose (07/14/2017 4:34 AM EST) athologist Signature POC Glucose 115 65 - 199 [place] mg/dL [facility] Comment: [...] Address City/State/ZIP Code Phon e Number [address] POCT Glucose (07/13/2017 11:33 PM EST) athologist Signature POC Glucose 132 65 - 199 [facility] SU mg/dL [facility] Comment: [...] Address City/State/ZIP Code Phon e Number [address] POCT Glucose (07/13/2017 9:25 PM EST) athologist Signature POC Glucose 121 65 - 199 [facility] SU mg/dL [facility] Comment: [...] Organization Address City/State/ZIP [place] [address] POCT Glucose (07/13/2017 4:55 PM EST) athologist Signature POC Glucose 79 65 - 199 [place] mg/dL [facility] Comment: [...] Organization Address City/State/ZIP [place] [address] POCT Glucose (07/13/2017 11:16 AM EST) athologist Signature POC Glucose 163 65 - 199 [place] mg/dL [facility] Comment: [...] Organization Address City/State/ZIP [place] [address] POCT Glucose (07/13/2017 8:07 AM EST) athologist Signature POC Glucose 96 65 - 199 [facility] SU mg/dL [facility] Comment: [...] Organization Address City/State/ZIP [place] [address] (ABNORMAL) Prothrombin Time (07/13/2017 4:26 AM EST) P athologist Signature PT 20.8 (H) 11.8 - 14.0 [facility] LABORATORY INR 1.8 (H) 0.9 - 1.1 [facility] [...] Organization Address City/State/ZIP [place] [address] (ABNORMAL) Basic Metabolic Panel (non-fasting) (07/13/2017 4:26 AM EST) P athologist Signature Glucose Lvl 95 65 - 199 [facility] mg/dL [facility] Comment: [...] [facility] LABORATORY Estimated GFR 60 >=60 [facility] Comment: The reported eGFR should be multiplied b y 1.2 for patients. The MDRD is not an appropriate measure o f renal function for patients with body mass extremes or in patients with acute kidney failure. http://[employer]DHnkdep http://[employer]DHMCnkf Specimen Anatomical Collection Method Collection Time Receive d Time (Source) Location / / Volume Laterality Blood specimen 07/13/2017 4:26 AM 017 4:46 (specimen) EST AM EST Resulting Agency Comment Spec In Lab Makayla Wilson APRN CHEMISTRY ORDERABLES Performing Organization Address City/[facility] Code Phon e Number [address] POCT Glucose (07/13/2017 3:52 AM EST) athologist Signature POC Glucose 93 65 - 199 [facility] Comment: [...] City/[facility]/ZIP Code Phon e Number [address] POCT Glucose (07/13/2017 12:21 AM EST) athologist Signature POC Glucose 80 65 - 199 [facility] mg/dL [facility] Comment: [...] Organization Address City/State/ZIP [place] [address] POCT Glucose (07/12/2017 8:22 PM EST) athologist Signature POC Glucose 119 65 - 199 [place] mg/dL [facility] Comment: [...] Address City/State/ZIP Code Phon e Number [address] POCT Glucose (07/12/2017 4:02 PM EST) athologist Signature POC Glucose 114 65 - 199 [place] mg/dL [facility] Comment: [...] Address City/State/ZIP Code Phon e Number [address] POCT Glucose (07/12/2017 11:28 AM EST) athologist Signature POC Glucose 164 65 - 199 [place] mg/dL [facility] Comment: [...] City/[facility]/ZIP [place] [address] POCT Glucose (07/12/2017 7:34 AM EST) P athologist Signature POC Glucose 109 65 - 199 [facility] Comment: [...] Organization Address City/State/ZIP [place] [address] (ABNORMAL) Basic Metabolic Panel (non-fasting) (07/12/2017 4:11 AM EST) P athologist Signature Glucose Lvl 92 65 - 199 [facility] mg/dL [facility] Comment: [...] 107 mmol/L [facility] CO2 Not Perf 22 - 31 mmol/L [facility] Comment: Add-on request. Sample too old to perform test. Anion Gap Not Calculated 5 - 15 mmol/L [facility] Calcium 8.1 (L) 8.5 - 10.5 mg/dL [facility] LABORATORY Estimated GFR 58 (L) >=60 [facility] Comment: The reported eGFR should be multiplied b y 1.2 for patients. The MDRD is not an appropriate measure o f renal function for patients with body mass extremes or in patients with acute kidney failure. http://[employer]DHnkdep http://[employer]DHMCnkf Specimen Anatomical Collection Method Collection Time Receive d Time (Source) Location / / Volume Laterality Blood specimen 07/12/2017 4:11 AM 017 8:57 (specimen) EST AM EST Resulting Agency Comment Spec [facility]IE CHEMISTRY ORDERABLES Performing Organization Address [facility] [place] [address] (ABNORMAL) Prothrombin Time (07/12/2017 4:11 AM EST) P athologist Signature PT 15.4 (H) 11.8 - 14.0 [facility] LABORATORY INR 1.2 (H) 0.9 - 1.1 [facility] [...] [place] STACIE HEMATOLOGY ORDERABLES Performing Organization Address City/[facility]/ZIP Code [place] [address] Potassium (07/12/2017 4:11 AM EST) athologist Signature Potassium 3.8 3.5 - 5.0 [facility] mmol/L [facility] Comment: Please note: ??Patients with [...] EST Resulting Agency Comment Spec In Lab Makalya Wilson APRN CHEMISTRY ORDERABLES Performing Organization Address City/State/ZIP Code Phon e Number [address] POCT Glucose (07/12/2017 4:10 AM EST) athologist Signature POC Glucose 90 65 - 199 [facility]dL [facility] Comment: [...] Organization Address City/State/ZIP [place] [address] POCT Glucose (07/11/2017 11:57 PM EST) athologist Signature POC Glucose 98 65 - 199 [facility] mg/dL [facility] Comment: [...] Address City/State/ZIP Code Phon e Number [address] POCT Glucose (07/11/2017 8:32 PM EST) P athologist Signature POC Glucose 146 65 - 199 [place] mg/dL [facility] [...] Organization Address City/State/ZIP [place] [address] XR Chest PA & [...] e xtubated, left chest tube removed, and Waverly-Suzi catheter removed since the study. Atelectasis at [...] e xtubated, left chest tube removed, and Waverly-Suzi catheter removed since the study. Atelectasis at [...] (H) 65 - 199 [place] mg/dL [facility] Comment: [...] City/[facility]/ZIP Code Phon e Number [address] POCT Glucose (07/11/2017 11:55 AM EST) athologist Signature POC Glucose 176 65 - 199 [place] mg/dL [facility] Comment: [...] City/[facility]/ZIP [place] [address] POCT Glucose (07/11/2017 7:53 AM EST) athologist Signature POC Glucose 189 65 - 199 [place] mg/dL [facility] Comment: [...] City/[facility]/ZIP [place] [address] POCT Glucose (07/11/2017 4:22 AM EST) athologist Signature POC Glucose 151 65 - 199 [facility] mg/dL [facility] Comment: [...] City/[facility]/ZIP [place] [address] Potassium (07/11/2017 2:20 AM EST) athologist Signature Potassium 4.5 3.5 - 5.0 [facility] mmol/L [facility] Comment: Please note: ??Patients with [...] City/[facility]/ZIP Code Phon e Number [address] POCT Glucose (07/11/2017 12:17 AM EST) athologist Signature POC Glucose 162 65 - 199 [place] mg/dL [facility] LABORATORY [...] Address City/State/ZIP Code Phon e Number [address] POCT Glucose (07/10/2017 8:47 PM EST) athologist Signature POC Glucose 191 65 - 199 [place] mg/dL [facility] Comment: [...] Address City/State/ZIP Code Phon e Number [address] POCT Glucose (07/10/2017 4:06 PM EST) athologist Signature POC Glucose 131 65 - 199 [place] mg/dL [facility]OR[facility]ORY [...] Address City/State/ZIP Code Phon e Number [address] POCT Glucose (07/10/2017 3:08 PM EST) athologist Signature POC Glucose 151 65 - 199 [place] mg/dL [facility] Comment: [...] Address City/State/ZIP Code Phon e Number [address] POCT Glucose (07/10/2017 2:25 PM EST) athologist Signature POC Glucose 146 65 - 199 [place] mg/dL [facility] Comment: [...] Address City/State/ZIP Code Phon e Number [address] POCT Glucose (07/10/2017 1:23 PM EST) athologist Signature POC Glucose 166 65 - 199 [place] mg/dL [facility] Comment: [...] Address City/State/ZIP Code Phon e Number [address] POCT Glucose (07/10/2017 11:52 AM EST) athologist Signature POC Glucose 157 65 - 199 [place] mg/dL [facility] Comment: [...] Organization Address City/State/ZIP [place] [address] POCT Glucose (07/10/2017 11:01 AM EST) P athologist Signature POC Glucose 158 65 - 199 [place] mg/dL [facility] Comment: [...] Address City/State/ZIP Code Phon e Number [address] POCT Glucose (07/10/2017 9:54 AM EST) athologist Signature POC Glucose 160 65 - 199 [place] mg/dL [facility] Comment: [...] Address City/State/ZIP Code Phon e Number [address] POCT Glucose (07/10/2017 8:58 AM EST) athologist Signature POC Glucose 183 65 - 199 [place] mg/dL [facility] Comment: [...] Address City/State/ZIP Code Phon e Number [address] POCT Glucose (07/10/2017 8:01 AM EST) athologist Signature POC Glucose 173 65 - 199 [place] mg/dL [facility] Comment: [...] Address City/State/ZIP Code Phon e Number [address] POCT Glucose (07/10/2017 7:05 AM EST) athologist Signature POC Glucose 166 65 - 199 [place] mg/dL [facility] Comment: [...] Organization Address City/State/ZIP [place] [address] POCT Glucose (07/10/2017 6:00 AM EST) athologist Signature POC Glucose 162 65 - 199 [place] mg/dL [facility] Comment: [...] Organization Address City/State/ZIP Code Phon e Number [facility] [place] [address] (ABNORMAL) Differential, Automated (07/10/2017 4:28 AM EST) [facility] gist Method Time Signature Neutrophils % 87.9 % [facility]ORY Neutr Abs (ANC) 10.70 (H) 1.70 - [facility] 6.10 [facility] x10(3)/[facility] LABORATORY Lymphocytes % 3.9 % [facility] Lymphocytes Abs 0.5 (L) 0.9 - 3.2 [facility] x10(3)/[facility] LABORATORY Monocytes % 7.0 % [facility] Monocyte Abs 0.8 0.3 - 0.9 [facility] x10(3)/[facility] LABORATORY Eosinophils % 0.3 % [facility] Eosinophils Abs 0.0 0.0 - 0.4 [facility] x10(3)/[facility] LABORATORY Basophils % 0.2 % [facility] Basophils Abs 0.0 0.0 - 0.1 [facility] x10(3)/[facility] LABORATORY Immature Gran % 0.70 % [facility] [...] 0.08 (H) 0.00 - 0.04 x10(3)/[facility] LABORATORY Specimen Anatomical Collection Method Collection Time Receive d Time (Source) Location / / Volume Laterality Blood specimen 07/10/2017 4:28 AM 017 4:36 (specimen) EST AM EST Resulting Agency Comment Spec In Lab Yuan Webber MD HEMATOLOGY ORDERABLES Performing Organization Address City/State/ZIP Code Phon e Number [address] (ABNORMAL) Hemogram (07/10/2017 4:28 AM EST) Analysis Performed At Patho logist Time Signature WBC 12.2 (H) 4.0 - 9.5 [facility] LABORATORY RBC 3.31 (L) 4.58 - [place] 5.54 [facility] x10(6)/[facility] LABORATORY Hemoglobin 9.8 (L) 13.7 - [facility] 16.5 gm/dL [facility] Hematocrit 30.0 (L) 40.5 - [facility] 48.5 % [facility] MCV 90.6 82.9 - [facility] 93.1 [facility] LABORATORY MCH 29.6 27.5 - [place] 32.1 pg [facility] LABORATORY MCHC 32.7 32.0 - [place] 35.7 gm/dL [facility] Platelets 135 (L) 145 - 357 [facility] x10(3)/[facility] LABORATORY RDWSD 50.8 (H) 36.0 - [facility] 45.0 [facility] LABORATORY RDWCV 15.4 (H) 11.4 - [facility] 13.8 % [facility]ORATORY MPV 10.0 7.6 - 12.9 [facility] LABORATORY nRBC % Auto 0.0 % [facility] LABORATORY nRBC Abs Auto 0.000 0.000 - [facility] SU 0.000 [facility] x10(3)/[facility] LABORATORY Specimen Anatomical Collection Method Collection Time Receive d Time (Source) Location / / Volume Laterality Blood specimen 07/10/2017 4:28 AM 017 4:36 (specimen) EST AM EST Resulting Agency Comment Spec In Lab Yuan Webber MD HEMATOLOGY ORDERABLES Performing Organization Address City/State/ZIP [place] [address] (ABNORMAL) Basic Metabolic Panel (non-fasting) (07/10/2017 4:28 AM EST) athologist Signature Glucose Lvl 178 65 - 199 [facility] mg/dL [facility] Comment: [...] estions. Chloride 107 98 - 107 mmol/L [facility] CO2 21 (L) 22 - 31 mmol/L [facility] Anion Gap 15 5 - 15 mmol/L [facility] LABORATORY Calcium 7.4 (L) 8.5 - 10.5 mg/dL [facility] LABORATORY Estimated GFR 60 >=60 [facility] LAB[facility]ORY Comment: The reported eGFR should be multiplied b y 1.2 for patients. The MDRD is not an appropriate measure o f renal function for patients with body mass extremes or in patients with acute kidney failure. http://[employer]/DHnkdep http://[employer]DHMCnkf Specimen Anatomical Collection Method Collection Time Receive d Time (Source) Location / / Volume Laterality Blood specimen 07/10/2017 4:28 AM 017 4:36 (specimen) EST AM EST Resulting Agency Comment Spec In Lab Yuan Webber MD CHEMISTRY ORDERABLES Performing Organization Address City/State/[place] [address] POCT Glucose (07/10/2017 4:26 AM EST) athologist Signature POC Glucose 176 65 - 199 [place] mg/dL [facility] Comment: [...] Organization Address City/State/ZIP [place] [address] (ABNORMAL) POCT Glucose (07/10/2017 3:06 AM EST) athologist Signature POC Glucose 204 (H) 65 - 199 [place] mg/dL [facility] Comment: [...] Organization Address City/State/ZIP [place] [address] (ABNORMAL) POCT Glucose (07/10/2017 2:10 AM EST) athologist Signature POC Glucose 203 (H) 65 - 199 [place] mg/dL [facility] Comment: [...] Organization Address City/State/ZIP [place] [address] POCT Glucose (07/10/2017 1:09 AM EST) athologist Signature POC Glucose 196 65 - 199 [place] mg/dL [facility] Comment: [...] Address City/State/ZIP Code Phon e Number [address] POCT Glucose (07/10/2017 12:10 AM EST) athologist Signature POC Glucose 173 65 - 199 [place] mg/dL [facility] Comment: [...] Address City/State/ZIP Code Phon e Number [address] POCT Glucose (07/09/2017 11:01 PM EST) athologist Signature POC Glucose 140 65 - 199 [place] mg/dL [facility] Comment: [...] Address City/State/ZIP Code Phon e Number [address] POCT Glucose (07/09/2017 10:05 PM EST) athologist Signature POC Glucose 144 65 - 199 [place] mg/dL [facility] Comment: [...] Organization Address City/State/ZIP [place] [address] POCT Glucose (07/09/2017 9:31 PM EST) athologist Signature POC Glucose 121 65 - 199 [place] mg/dL [facility] Comment: [...] Address City/State/ZIP Code Phon e Number [address] POCT Glucose (07/09/2017 9:03 PM EST) athologist Signature POC Glucose 98 65 - 199 [place] mg/dL [facility] Comment: [...] Address City/State/ZIP Code Phon e Number [address] POCT Glucose (07/09/2017 8:09 PM EST) athologist Signature POC Glucose 117 65 - 199 [place] mg/dL [facility] Comment: [...] Organization Address City/State/ZIP [place] [address] POCT Glucose (07/09/2017 5:40 PM EST) athologist Signature POC Glucose 155 65 - 199 [place] mg/dL [facility] Comment: [...] Organization Address City/State/ZIP [place] [address] [address] POCT Glucose (07/09/2017 4:24 PM EST) athologist Signature POC Glucose 164 65 - 199 [facility] SU mg/dL [facility] Comment: [...] Organization Address City/State/ZIP [place] [address] POCT Glucose (07/09/2017 3:19 PM EST) athologist Signature POC Glucose 166 65 - 199 [place] [facility] mg/dL [facility] Comment: [...] Organization Address City/State/ZIP [place] [address] POCT Glucose (07/09/2017 2:26 PM EST) athologist Signature POC Glucose 179 65 - 199 [place] [facility] mg/dL [facility] Comment: [...] Organization Address City/State/ZIP [place] [address] (ABNORMAL) POCT Glucose (07/09/2017 1:29 PM EST) athologist Signature POC Glucose 210 (H) 65 - 199 [place] [facility] mg/dL [facility] Comment: [...] Address City/State/ZIP Code Phon e Number [address] POCT Glucose (07/09/2017 12:20 PM EST) athologist Signature POC Glucose 172 65 - 199 [place] mg/dL [facility] Comment: [...] Address City/State/ZIP Code Phon e Number [address] POCT Glucose (07/09/2017 11:24 AM EST) P athologist Signature POC Glucose 156 65 - 199 [place] mg/dL [facility] Comment: [...] Address City/State/ZIP Code Phon e Number [address] POCT Glucose (07/09/2017 11:11 AM EST) P athologist Signature POC Glucose 172 65 - 199 [facility] SU mg/dL [facility] Comment: [...] Organization Address City/State/ZIP [place] [address] POCT Glucose (07/09/2017 10:08 AM EST) P athologist Signature POC Glucose 176 65 - 199 [facility] SU mg/dL [facility] Comment: [...] Organization Address City/State/ZIP [place] [address] POCT Glucose (07/09/2017 8:02 AM EST) P athologist Signature POC Glucose 178 65 - 199 [facility] mg/dL [facility] Comment: [...] Organization Address City/State/ZIP [place] [address] (ABNORMAL) BLOOD GAS 2 ARTERIAL (07/09/2017 5:37 AM EST) Analysis Performed At Patho logist Time Signature pH Art 7.36 7.35 - [facility] 7.45 [facility] pCO2 Art 38 35 - 45 [facility] LABORATORY pO2 Art 79 (L) 85 - 104 [facility] LABORATORY HCO3 Art 20.9 20.0 - [facility] 26.0 [facility] mmol/L [facility] LABORATORY BE Art -4.6 (L) -3.0 - 3.0 [facility] mmol/L [facility] Hgb Blood Gas 10.5 (L) 13.7 - [facility] 16.5 gm/dL [facility] O2HB Art 93.8 (L) 94.0 - [facility] 97.0 % [facility] COHB Art 0.3 % [facility] LABORATORY Comment: Nonsmokers: 0.5-1.5% COHB Smokers: Variable, but usually less than 10% Toxic: 20-30% COHB Lethal: Greater than 60% COHB METHB Art 0.6 <=1.5 % [facility] LABORATORY Na Whole Blood 141 135 - 145 mmol/L [facility] LABORATORY K Whole Blood 4.5 3.5 - 5.0 mmol/L [facility] LABORATORY Comment: Please note: Patients with WBC >100,000 may have falsely elevated Potassium levels. Contact the Clinical Chemistry L aboratory if there are any questions. ICa Whole Blood 1.01 (L) 1.15 - 1.33 mmol/L [facility] LABORATORY Comment: Note: ??Total bilirubin [...] [facility] FIO2 Art 40 % [facility] LABORATORY PF Ratio Art 198 [facility] LABORATORY Specimen Anatomical Collection Method Collection Time Receive d Time (Source) Location / / Volume Laterality Blood specimen 07/09/2017 5:37 AM 017 5:37 (specimen) EST AM EST Yuan Webber MD CHEMISTRY ORDERABLES Performing Organization Address City/[facility]/ZIP [place] [address] POCT Glucose (07/09/2017 3:27 AM EST) P athologist Signature POC Glucose 192 65 - 199 [facility] mg/dL [facility] Comment: [...] City/[facility]/ZIP [place] [address] (ABNORMAL) Basic Metabolic Panel (non-fasting) (07/09/2017 2:30 AM EST) athologist Signature Glucose Lvl 179 65 - 199 [facility] mg/dL [facility] Comment: [...] Chloride 111 (H) 98 - 107 mmol/L [facility]ORY CO2 21 (L) 22 - 31 mmol/L [facility] [...] or in patients with acute kidney failure. [email or web address] Specimen Anatomical Collection Method Collection Time Receive d Time (Source) Location / / Volume Laterality Blood specimen Venous Draw / 07/09/2017 2:30 AM 2016 2:42 (specimen) Unknown EST AM EST Resulting Agency Comment Spec In Lab Yuan Webber MD CHEMISTRY ORDERABLES Performing Organization Address City/State/[place] [address] (ABNORMAL) Potassium (07/09/2017 2:30 AM EST) P athologist Signature Potassium 5.1 (H) 3.5 - 5.0 [place] [facility] mmol/L [facility] Comment: Please note: ??Patients with [...] Organization Address City/State/[place] [address] (ABNORMAL) Hemogram (07/09/2017 2:30 AM EST) Analysis Performed At Patho logist Time Signature WBC 12.5 (H) 4.0 - 9.5 [place] [facility] x10(3)/[facility] LABORATORY RBC 3.38 (L) 4.58 - [place] [facility] 5.54 [facility] x10(6)/[facility] LABORATORY Hemoglobin 10.1 (L) 13.7 - [place] [facility] 16.5 gm/dL [facility] Hematocrit 30.3 (L) 40.5 - [place] [facility] 48.5 % [facility] MCV 89.6 82.9 - [place] [facility] 93.1 [facility] LABORATORY MCH 29.9 27.5 - [place] [facility] 32.1 pg [facility] MCHC 33.3 32.0 - [place] [facility] 35.7 gm/dL [facility] Platelets 127 (L) 145 - 357 [place] [facility] x10(3)/[facility] LABORATORY RDWSD 49.3 (H) 36.0 - [place] [facility] 45.0 [facility] LABORATORY RDWCV 15.2 (H) 11.4 - [facility] 13.8 % [facility] MPV 9.9 7.6 - 12.9 [place] [facility] LABORATORY nRBC % Auto 0.0 % [facility] LABORATORY nRBC Abs Auto 0.000 0.000 - [place] DAVIS 0.000 [facility] x10(3)/[facility] LABORATORY Specimen Anatomical Collection Method Collection Time Receive d Time (Source) Location / / Volume Laterality Blood specimen 07/09/2017 2:30 AM 017 2:41 (specimen) EST AM EST Resulting Agency Comment Spec In Lab Yuan Webber MD HEMATOLOGY ORDERABLES Performing Organization Address City/State/ZIP Code Phon e Number [address] POCT Glucose (07/09/2017 2:10 AM EST) P athologist Signature POC Glucose 169 65 - 199 [place] [facility] mg/dL [facility] Comment: [...] City/[facility]/ZIP Code Phon e Number [address] POCT Glucose (07/09/2017 1:01 AM EST) P athologist Signature POC Glucose 173 65 - 199 [place] [facility] mg/dL [facility] Comment: [...] City/[facility]/ZIP Code Phon e Number [address] Blood culture (07/09/2017 12:40 AM EST) [facility] Method Time Signature Blood Culture No growth [place] DAVIS at 5 days. [facility] Specimen Anatomical Collection Method Collection Time Receive d Time (Source) Location / / Volume Laterality Blood specimen STRUCTURE OF RIGHT 07/09/2017 12:40 3:58 (specimen) UPPER LIMB / AM EST AM EST Unknown Resulting Agency Comment Spec In Lab Yuan Webber MD MICROBIOLOGY - BLOOD ORDERAB LES Performing Organization Address City/State/ZIP [place] [address] Blood culture (07/09/2017 12:30 AM EST) Patholo gist Method Time Signature Blood Culture No growth [place] DAVIS at 5 days. [facility] Specimen Anatomical Collection Method Collection Time Receive d Time (Source) Location / / Volume Laterality Blood specimen STRUCTURE OF LEFT 07/09/2017 12:30 06/25 3:59 (specimen) UPPER LIMB / AM EST AM EST Unknown Resulting Agency Comment Spec In Lab Yuan Webber MD MICROBIOLOGY - BLOOD ORDERAB LES Performing Organization Address City/[facility]/ZIP [place] [address] (ABNORMAL) Urinalysis Microscopic Exam (07/09/2017 12:05 AM EST) Analysis Performed At Patho logist Time Signature RBC UA 32 (H) 0 - 3 /HPF [facility] LABORATORY WBC UA 5 (H) 0 - 3 /HPF [facility] LABORATORY Squam Epith UA <1 <=4 /HPF [facility] Hyaline Cast 17 (H) 0 - 2 /LPF [facility] LABORATORY Gran Cast UA 1 (H) <=0 /LPF [facility] LABORATORY Uric Ac Bianca Rare (A) None /HPF [facility] LABORATORY Specimen (Source) Anatomical Collection Method Collection Time Re ceived Time Location / / Volume Laterality Urine specimen 07/09/2017 12:05 7 obtained via AM EST 12:39 AM EST indwelling urinary catheter (specimen) Resulting Agency Comment Spec In Lab Yuan Webber MD URINE ORDERABLES Performing Organization Address City/State/ZIP [place] [address] (ABNORMAL) Urinalysis with reflex Culture (07/09/2017 12:05 AM EST) Patholo gist Method Time Signature Glucose UA Negative Negative [facility] mg/dL [facility] Protein UA 30 (A) Negative [facility] mg/dL [facility] Bilirubin UA Negative Negative [facility] mg/dL [facility] Comment: Clinical correlation required for [...] HOSPITAL LABORATORY Ketones UA Negative Negative mg/dL [facility] Nitrite UA Negative Negative [facility] LABORATORY Leukocytes UA Negative Negative mcL [facility] LABORATORY Appearance UA Hazy (A) Clear [facility] LABORATORY Spec [place] UA 1.025 1.002 - 1.030 [facility] LABORATORY Color UA Yellow Yellow [facility] LABORATORY Culture Reflexed No [facility] LABORATORY Specimen (Source) Anatomical Collection Method Collection Time Re ceived Time Location / / Volume Laterality Urine specimen 07/09/2017 12:05 7 obtained via AM EST 12:39 AM EST indwelling urinary catheter (specimen) Resulting Agency Comment Spec In Lab Yuan Webber MD URINE ORDERABLES Performing Organization Address City/State/ZIP Code Phon e Number [place] [id number] POCT Glucose (07/08/2017 11:01 PM EST) P athologist Signature POC Glucose 191 65 - 199 [facility] mg/dL [facility] Comment: [...] Organization Address City/State/ZIP [place] [address] POCT Glucose (07/08/2017 10:04 PM EST) P athologist Signature POC Glucose 198 65 - 199 [facility] SU mg/dL [facility] Comment: [...] City/[facility]/ZIP [place] [address] Prepare Albumin 5% in 250 mL (07/08/2017 8:49 PM EST) P athologist Signature Dispensed? Yes [facility] LABORATORY Specimen Anatomical Collection Method Collection Time Receive d Time (Source) Location / / Volume Laterality Blood specimen No Charge / 07/08/2017 8:49 PM 017 8:51 (specimen) Unknown EST PM EST Resulting Agency Comment Spec In Lab [facility] ORDERABLES Performing Organization Address City/State/ZIP [place] [address] POCT Glucose (07/08/2017 8:28 PM EST) P athologist Signature POC Glucose 195 65 - 199 [facility] Comment: [...] Organization Address City/State/ZIP [place] [address] (ABNORMAL) POCT Glucose (07/08/2017 7:13 PM EST) P athologist Signature POC Glucose 220 (H) 65 - 199 [facility] Comment: [...] Organization Address City/State/ZIP [place] [address] POCT Glucose (07/08/2017 5:04 PM EST) athologist Signature POC Glucose 147 65 - 199 [facility] Comment: [...] Organization Address City/State/ZIP [place] [address] (ABNORMAL) BLOOD GAS 2 ARTERIAL (07/08/2017 4:13 PM EST) Analysis Performed At Patho logist Time Signature pH Art 7.38 7.35 - [facility] 7.45 [facility] pCO2 Art 36 35 - 45 [facility] LABORATORY pO2 Art 91 85 - 104 [facility] LABORATORY HCO3 Art 20.9 20.0 - [facility] 26.0 [facility] mmol/L [facility] LABORATORY BE Art -4.2 (L) -3.0 - 3.0 [facility] mmol/L [facility] Hgb Blood Gas 11.7 (L) 13.7 - [facility] 16.5 gm/dL [facility] O2HB Art 95.1 94.0 - [facility] 97.0 % [facility] COHB Art 0.6 % [facility] LABORATORY Comment: Nonsmokers: 0.5-1.5% COHB Smokers: Variable, but usually less than 10% Toxic: 20-30% COHB Lethal: Greater than 60% COHB METHB Art 0.6 <=1.5 % [facility] LABORATORY Na Whole Blood 139 135 - 145 mmol/L [facility]ORATORY K Whole Blood 4.2 3.5 - 5.0 mmol/L [facility] Comment: Please note: Patients with WBC >100,000 may have falsely elevated Potassium levels. Contact the Clinical Chemistry L aboratory if there are any questions. ICa Whole Blood 1.05 (L) 1.15 - 1.33 mmol/L [facility] LABORATORY Comment: Note: ??Total bilirubin [...] [facility] LAB[facility] FIO2 Art 40 % [facility] LABORATORY PF Ratio Art 228 [facility] LABORATORY Specimen Anatomical Collection Method Collection Time Receive d Time (Source) Location / / Volume Laterality Blood specimen 07/08/2017 4:13 PM 017 4:13 (specimen) EST PM EST Yuan Webber MD CHEMISTRY ORDERABLES Performing Organization Address City/State/[place] [address] POCT Glucose (07/08/2017 4:01 PM EST) athologist Signature POC Glucose 148 65 - 199 [facility] mg/dL [facility] Comment: [...] Address City/State/ZIP Code Phon e Number [address] POCT Glucose (07/08/2017 3:21 PM EST) athologist Signature POC Glucose 118 65 - 199 [place] [facility] mg/dL [facility] Comment: [...] Address City/State/ZIP Code Phon e Number [address] POCT Glucose (07/08/2017 2:01 PM EST) athologist Signature POC Glucose 129 65 - 199 [place] [facility] mg/dL [facility] Comment: [...] Address City/State/ZIP Code Phon e Number [address] POCT Glucose (07/08/2017 11:53 AM EST) athologist Signature POC Glucose 156 65 - 199 [facility] Comment: [...] Organization Address City/State/ZIP [place] [address] POCT Glucose (07/08/2017 11:04 AM EST) athologist Signature POC Glucose 181 65 - 199 [facility] Comment: [...] City/[facility]/ZIP [place] [address] (ABNORMAL) POCT Glucose (07/08/2017 9:24 AM EST) athologist Signature POC Glucose 203 (H) 65 - 199 [facility] Comment: [...] Address City/State/ZIP Code Phon e Number [address] APTT (07/08/2017 8:40 AM EST) athologist Signature PTT 33 25 - 35 sec [facility]ORATORY Comment: The recommended therapeutic range for fu ll dose, unfractionated heparin at [facility] is 80 ? [...] Webber MD HEMATOLOGY ORDERABLES Performing Organization Address [facility] [place] [address] (ABNORMAL) Prothrombin Time (07/08/2017 [...] HEMATOLOGY ORDERABLES Performing Organization Address City/[facility] [place] [address] (ABNORMAL) POCT Glucose (07/08/2017 7:38 AM EST) P athologist Signature POC Glucose 232 (H) 65 - 199 [facility] mg/dL [facility] Comment: [...] Organization Address City/State/ZIP [place] [address] (ABNORMAL) POCT Glucose (07/08/2017 7:07 AM EST) athologist Signature POC Glucose 234 (H) 65 - 199 [place] [facility] mg/dL [facility] Comment: [...] City/[facility]/ZIP [place] [address] (ABNORMAL) POCT Glucose (07/08/2017 6:04 AM EST) athologist Signature POC Glucose 225 (H) 65 - 199 [place] mg/dL [facility] Comment: [...] City/[facility]/ZIP [place] [address] (ABNORMAL) POCT Glucose (07/08/2017 5:31 AM EST) athologist Signature POC Glucose 216 (H) 65 - 199 [facility] mg/dL [facility] Comment: [...] Organization Address City/State/ZIP [place] [address] (ABNORMAL) POCT Glucose (07/08/2017 4:52 AM EST) P athologist Signature POC Glucose 257 (H) 65 - 199 [facility] mg/dL [facility] Comment: [...] Organization Address City/State/ZIP [place] [address] (ABNORMAL) BLOOD GAS 2 ARTERIAL (07/08/2017 4:04 AM EST) Analysis Performed At Patho logist Time Signature pH Art 7.30 (L) 7.35 - [facility] 7.45 [facility] pCO2 Art 41 35 - 45 [facility] mmHg [facility]ORATORY pO2 Art 83 (L) 85 - 104 [facility] LABORATORY HCO3 Art 19.6 (L) 20.0 - [facility] 26.0 [facility] mmol/L [facility] LABORATORY BE Art -6.8 (L) -3.0 - 3.0 [facility] mmol/L [facility]OR[facility] Hgb Blood Gas 12.2 (L) 13.7 - [facility] 16.5 gm/dL [facility] O2HB Art 93.5 (L) 94.0 - [facility] 97.0 % [facility] COHB Art 0.4 % [facility]ORY Comment: Nonsmokers: 0.5-1.5% COHB Smokers: Variable, but usually less than 10% Toxic: 20-30% COHB Lethal: Greater than 60% COHB METHB Art 0.8 <=1.5 % [facility] LABORATORY Na Whole Blood 138 135 - 145 mmol/L [facility] K Whole Blood 4.4 3.5 - 5.0 mmol/L [facility] Comment: Please note: Patients with WBC >100,000 may have falsely elevated Potassium levels. Contact the Clinical Chemistry L aboratory if there are any questions. ICa Whole Blood 1.05 (L) 1.15 - 1.33 mmol/L [facility] Comment: Note: ??Total bilirubin [...] [facility] Comment: Noted by optical instrument inspector. FIO2 Art 40 % [facility]ORATORY PF Ratio Art 208 [facility] LABORATORY Specimen Anatomical Collection Method Collection Time Receive d Time (Source) Location / / Volume Laterality Blood specimen 07/08/2017 4:04 AM 017 4:04 (specimen) EST AM EST Daphne Shahid MD CHEMISTRY ORDERABLES Performing Organization Address City/[facility]/ZIP [place] [address] Scan, Peripheral Blood (07/08/2017 4:00 AM EST) P athologist Signature Plat Estimate Normal [facility] RBC Morphology Normal [facility] Specimen Anatomical Collection Method Collection Time Receive d Time (Source) Location / / Volume Laterality Blood specimen 07/08/2017 4:00 AM 017 4:09 (specimen) EST AM EST Resulting Agency Comment Spec In Lab Yuan Webber MD HEMATOLOGY ORDERABLES Performing Organization Address City/[facility]/ZIP [place] [address] (ABNORMAL) Differential, Automated (07/08/2017 4:00 AM EST) Patholo gist Method Time Signature Neutrophils % 85.4 % [facility]ATORY Neutr Abs (ANC) 16.07 (H) 1.70 - [facility] 6.10 [facility] x10(3)/[facility] L LABORATORY Lymphocytes % 3.5 % [facility]ORATORY Lymphocytes Abs 0.6 (L) 0.9 - 3.2 [facility] x10(3)/[facility] LABORATORY Monocytes % 10.4 % [facility] LABORATORY Monocyte Abs 2.0 (H) 0.3 - 0.9 [facility] x10(3)/[facility] LABORATORY Eosinophils % 0.0 % [facility] LABORATORY Eosinophils Abs 0.0 0.0 - 0.4 [facility] x10(3)/[facility] LABORATORY Basophils % 0.1 % [facility]ORATORY Basophils Abs 0.0 0.0 - 0.1 [facility] x10(3)/[facility] LABORATORY Immature Gran % 0.60 % [...] Abs 0.12 (H) 0.00 - 0.04 x10(3)/[facility] LABORATORY Specimen Anatomical Collection Method Collection Time Receive d Time (Source) Location / / Volume Laterality Blood specimen 07/08/2017 4:00 AM 017 4:09 (specimen) EST AM EST Resulting Agency Comment Spec In Lab Yuan Webber MD HEMATOLOGY ORDERABLES Performing Organization Address City/State/[place] [address] (ABNORMAL) Hemogram (07/08/2017 4:00 AM EST) Analysis Performed At Patho logist Time Signature WBC 18.8 (H) 4.0 - 9.5 [facility] x10(3)/[facility] LABORATORY RBC 4.00 (L) 4.58 - [place] [facility]HA[facility] 5.54 [facility] x10(6)/[facility] LABORATORY Hemoglobin 11.9 (L) 13.7 - [place] [facility] 16.5 gm/dL [facility]OR[facility]ORY Hematocrit 35.9 (L) 40.5 - [place] 48.5 % [facility]ORATORY MCV 89.8 82.9 - [facility] 93.1 [facility] LABORATORY MCH 29.8 27.5 - [place] ZHAOSU 32.1 pg [facility] LABORATORY MCHC 33.1 32.0 - [place] ZHA[facility]U 35.7 gm/dL [facility] Platelets 232 145 - 357 [facility] x10(3)/[facility] LABORATORY RDWSD 47.6 (H) 36.0 - [place] 45.0 [facility] LABORATORY RDWCV 14.5 (H) 11.4 - [facility] 13.8 % [facility] [facility] MPV 9.5 7.6 - 12.9 [place] SU [facility] LABORATORY nRBC % Auto 0.0 % [facility] nRBC Abs Auto 0.000 0.000 - [place] ZHAOSU 0.000 [facility] x10(3)/[facility] LABORATORY Specimen Anatomical Collection Method Collection Time Receive d Time (Source) Location / / Volume Laterality Blood specimen 07/08/2017 4:00 AM 017 4:09 (specimen) EST AM EST Resulting Agency Comment Spec In Lab Yuan Webber MD HEMATOLOGY ORDERABLES Performing Organization Address City/State/[place] [address] (ABNORMAL) Electrolytes panel (07/08/2017 4:00 AM EST) P athologist Signature Sodium 139 135 - 145 [facility] mmol/L [facility] Potassium 4.7 3.5 - 5.0 [facility] mmol/L [facility] Comment: result rechecked-JLK Please note: ??Patients with WBC >100,00 0 may have falsely elevated Potassium levels. ??For accurate Potassium quantif ication in these patients send serum separator tube (gold top) for subsequent determinations. ??Contact the Clinical Chemistry Laboratory if there are any qu estions. Chloride 104 98 - 107 mmol/L [facility] CO2 21 (L) 22 - 31 mmol/L [facility] Anion Gap 14 5 - 15 mmol/L [facility] Specimen Anatomical Collection Method Collection Time Receive d Time (Source) Location / / Volume Laterality Blood specimen 07/08/2017 4:00 AM 017 4:10 (specimen) EST AM EST Resulting Agency Comment Spec In Lab Yuan Webber MD CHEMISTRY ORDERABLES Performing Organization Address City/State/[place] [address] (ABNORMAL) Cardiac Enzymes (LEB/CGP) (07/08/2017 4:00 AM EST) P athologist Signature Troponin-T 1.88 (H) 0.00 - [facility] 0.00 ng/mL [facility] Comment: The 99th percentile for [...] additional sample may be indicated. Reference: Third [place] Definition of Myocardial Infarction. Journal of the [place] [employer] 2012;60:1581-98 CK, Total 413 (H) 0 - 200 unit/L [facility] Comment: result rechecked-JLK Specimen Anatomical Collection Method Collection Time Receive d Time (Source) Location / / Volume Laterality Blood specimen 07/08/2017 4:00 AM 017 4:09 (specimen) EST AM EST Resulting Agency Comment Spec In Lab Yuan Webber MD CHEMISTRY ORDERABLES Performing Organization Address City/[facility]/ZIP Code Phon e Number [address] (ABNORMAL) Glucose, fasting (07/08/2017 4:00 AM EST) P athologist Signature Glucose 287 (H) 65 - 99 [facility] Fasting mg/dL [facility] Comment: ?Fasting* Glucose Interpretive C [...] of Diabetes Mellitus, Position Statement from the [place] [employer]. ??Diabete s Care, Volume 33, Supplement 1, Jul 2009 Specimen Anatomical Collection Method Collection Time Receive d Time (Source) Location / / Volume Laterality Blood specimen 07/08/2017 4:00 AM 017 4:09 (specimen) EST AM EST Resulting Agency Comment Spec In Lab Yuan Webber MD CHEMISTRY ORDERABLES Performing Organization Address City/[facility]/ZIP Code Phon e Number [address] (ABNORMAL) Creatinine (07/08/2017 4:00 AM EST) Analysis Performed At Patho logist Time Signature Creatinine 1.55 (H) 0.80 - [facility] 1.50 mg/dL [facility] Estimated GFR 44 (L) >=60 [facility] Comment: The reported eGFR should be multiplied b y 1.2 for patients. The MDRD is not an appropriate measure o f renal function for patients with body mass extremes or in patients with acute kidney failure. http://[employer]DHnkdep http://[employer]DHMCnkf Specimen Anatomical Collection Method Collection Time Receive d Time (Source) Location / / Volume Laterality Blood specimen 07/08/2017 4:00 AM 017 4:09 (specimen) EST AM EST Resulting Agency Comment Spec In Lab Yuan Webber MD CHEMISTRY ORDERABLES Performing Organization Address City/[facility]/ZIP [facility] Phon e Number [address] BUN (07/08/2017 4:00 AM EST) athologist Signature BUN 16 10 - 20 [facility] mg[facility]dL [facility] Specimen Anatomical Collection Method Collection Time Receive d Time (Source) Location / / Volume Laterality Blood specimen 07/08/2017 4:00 AM 017 4:09 (specimen) EST AM EST Resulting Agency Comment Spec In Lab Yuan Webber MD CHEMISTRY ORDERABLES Performing Organization Address City/[facility] [place] [address] (ABNORMAL) POCT Glucose (07/08/2017 3:00 AM EST) athologist Signature POC Glucose 273 (H) 65 - 199 [facility] mg/dL [facility] Comment: [...] City/[facility]/ZIP [place] [address] (ABNORMAL) POCT Glucose (07/08/2017 1:57 AM EST) athologist Signature POC Glucose 288 (H) 65 - 199 [facility] mg/dL [facility] [...] City/[facility]/ZIP [place] [address] (ABNORMAL) POCT Glucose (07/08/2017 1:01 AM EST) athologist Signature POC Glucose 315 (H) 65 - 199 [facility] mg/dL [facility] Comment: [...] City/[facility]/ZIP [place] [address] (ABNORMAL) BLOOD GAS 2 ARTERIAL (07/08/2017 12:09 AM EST) athologist Signature pH Art 7.26 7.35 - [facility] (Critical) 7.45 [facility] Comment: Noted by optical instrument inspector. pCO2 Art 41 35 - 45 [...] Whole Blood 141 135 - 145 mmol/L [facility] K Whole Blood 3.5 3.5 - 5.0 mmol/L [facility] Comment: Please note: Patients with WBC >100,000 may have falsely elevated Potassium levels. Contact the Clinical Chemistry L aboratory if there are any questions. ICa Whole Blood 1.03 (L) 1.15 - 1.33 mmol/L [facility] Comment: Note: ??Total bilirubin [...] [facility] Comment: Noted by optical instrument inspector. FIO2 Art 40 % [facility] PF Ratio Art 240 [facility] Specimen Anatomical Collection Method Collection Time Receive d Time (Source) Location / / Volume Laterality Blood specimen Arterial Draw / 07/08/2017 12:09 2016 5:31 (specimen) Unknown AM EST AM EST Resulting Agency Comment Spec In Lab Samy Maldonado MD CHEMISTRY ORDERABLES Performing Organization Address City/State/[place] [address] (ABNORMAL) POCT Glucose (07/07/2017 10:56 PM EST) P athologist Signature POC Glucose 292 (H) 65 - 199 [facility] mg/dL [facility] Comment: [...] Organization Address City/State/[place] [address] (ABNORMAL) BLOOD GAS 2 ARTERIAL (07/07/2017 10:04 PM EST) athologist Signature pH Art 7.22 7.35 - [facility] (Critical) 7.45 [facility] Comment: Noted by optical instrument inspector. pCO2 Art 42 35 - 45 [...] Blood 1.07 (L) 1.15 - 1.33 mmol/L [facility] Comment: Note: ??Total bilirubin [...] [facility] Comment: Noted by optical instrument inspector. FIO2 Art 40 % [facility] PF Ratio Art 235 [facility] Specimen Anatomical Collection Method Collection Time Receive d Time (Source) Location / / Volume Laterality Blood specimen 07/07/2017 10:04 7 (specimen) PM EST 10:04 PM EST Daphne Shahid MD CHEMISTRY ORDERABLES Performing Organization Address City/[facility]/ZIP [place] [address] (ABNORMAL) Hemoglobin (07/07/2017 10:00 PM EST) P athologist Signature Hemoglobin 12.8 (L) 13.7 - [facility] 16.5 gm/dL [facility] Specimen Anatomical Collection Method Collection Time Receive d Time (Source) Location / / Volume Laterality Blood specimen 07/07/2017 10:00 7 (specimen) PM EST 10:13 PM EST Resulting Agency Comment Spec In Lab Yuan Webber MD HEMATOLOGY ORDERABLES Performing Organization Address City/[facility]/ZIP [place] [address] (ABNORMAL) Potassium (07/07/2017 10:00 PM EST) P athologist Signature Potassium 3.4 (L) 3.5 - 5.0 [facility] mmol/L [facility] Comment: Please note: ??Patients with [...] City/[facility]/ZIP Code Phon e Number [address] (ABNORMAL) POCT Glucose (07/07/2017 8:49 PM EST) P athologist Signature POC Glucose 241 (H) 65 - 199 [facility] mg/dL [facility] Comment: [...] City/[facility]/ZIP [place] [address] Prepare Albumin 5% in 250 mL (07/07/2017 8:03 PM EST) athologist Signature Dispensed? Yes [facility] Specimen Anatomical Collection Method Collection Time Receive d Time (Source) Location / / Volume Laterality Blood specimen No Charge / 07/07/2017 8:03 PM 017 8:04 (specimen) Unknown EST PM EST Resulting Agency Comment Spec In Lab Michael BROWN BLOOD BANK ORDERABLES Performing Organization Address City/[facility]/ZIP [facility] [place] [address] EKG 12 Lead (07/07/2017 7:17 PM EST) Component Value Ref Range Test Analysis Performed Pathologis t Method Time At Signature Ventricular rate 75 BPM MUSE SYSTEM Atrial Rate 75 BPM MUSE SYSTEM P-R Interval 168 ms MUSE SYSTEM QRS Duration 104 ms MUSE SYSTEM Q-T Interval 462 ms MUSE SYSTEM QTC Calculated 515 ms MUSE SYSTEM (Bezet) Calculated P Stover 52 degrees MUSE SYSTEM Calculated R Stover -40 degrees MUSE SYSTEM Calculated T Stover 39 degrees MUSE SYSTEM INTERPRETATION Normal sinus [...] athologist Signature pH Art 7.21 7.35 - [facility] (Critical) 7.45 [facility] Comment: Noted by optical instrument inspector. pCO2 Art 50 (H) 35 - [...] Blood 3.0 (Critical) 3.5 - 5.0 mmol/L [facility] Comment: Noted by optical instrument inspector. Please note: Patients with WBC >100,000 may have falsely elevated Potassium levels. Contact the Clinical Chemistry L aboratory if there are any questions. ICa Whole Blood 1.07 (L) 1.15 - 1.33 mmol/L [facility] Comment: Note: ??Total bilirubin [...] [facility] Comment: Noted by optical instrument inspector. FIO2 Art 100 % [facility] PF Ratio Art 238 [facility] Specimen Anatomical Collection Method Collection Time Receive d Time (Source) Location / / Volume Laterality Blood specimen 07/07/2017 6:57 PM 017 6:57 (specimen) EST PM EST Daphne Shahid MD CHEMISTRY ORDERABLES Performing Organization Address City/State/[place] [address] (ABNORMAL) BLOOD GAS 2 ARTERIAL (07/07/2017 5:31 PM EST) P athologist Signature pH Art 7.29 7.35 - [facility] (Critical) 7.45 [facility] Comment: Noted by optical instrument inspector. pCO2 Art 48 (H) 35 - [...] Blood 1.14 (L) 1.15 - 1.33 mmol/L [facility] Comment: Note: ??Total bilirubin [...] City/[facility]/[place] [address] Fibrinogen (07/07/2017 5:30 PM EST) athologist Signature Fibrinogen 224 180 - 510 [facility] mg/dL [facility] Comment: Called by: JEET, Read [...] City/[facility]/ZIP [place] [address] APTT (07/07/2017 5:30 PM EST) athologist Signature PTT 30 25 - 35 sec [facility] Comment: The recommended therapeutic range for fu ll dose, unfractionated heparin at [facility] is 80 ? [...] Organization Address City/State/ZIP [place] [address] (ABNORMAL) Prothrombin Time (07/07/2017 [...] Organization Address City/State/ZIP [place] [address] (ABNORMAL) Hemogram (07/07/2017 5:30 PM EST) athologist Signature WBC 19.6 (H) 4.0 - 9.5 [facility] x10(3)/[facility] LABORATORY RBC 3.08 (L) 4.58 - [facility] 5.54 [facility] x10(6)/[facility] LABORATORY Hemoglobin 9.2 (L) 13.7 - [facility] 16.5 gm/dL [facility] Hematocrit 28.0 (L) 40.5 - [facility] 48.5 % [facility] Comment: This result has been called to MONICA MORAN by DONALD GROSSMAN on 07 07 2017 at 1759, and has been read back. MCV 90.9 82.9 - 93.1 fL [facility] MCH 29.9 27.5 - 32.1 pg [facility] MCHC 32.9 32.0 - 35.7 gm/dL [facility] Platelets 155 145 - 357 x10(3)/[facility] LABORATORY RDWSD 46.5 (H) 36.0 - 45.0 [facility] LABORATORY RDWCV 14.1 (H) 11.4 - 13.8 % [facility] MPV 9.5 7.6 - 12.9 [facility] LABORATORY nRBC % Auto 0.0 % [facility] nRBC Abs Auto 0.000 0.000 - 0.000 x10(3)/[facility] LABORATORY Specimen Anatomical Collection Method Collection Time Receive d Time (Source) Location / / Volume Laterality Blood specimen 07/07/2017 5:30 PM 017 5:34 (specimen) EST PM EST Resulting Agency Comment Spec In Lab Yifan Perez MD HEMATOLOGY ORDERABLES Performing Organization Address City/State/[place] [address] Prepare Platelets, Apheresis (07/07/2017 5:00 PM EST) P athologist Signature Dispensed? Yes [facility] Specimen Anatomical Collection Method Collection Time Receive d Time (Source) Location / / Volume Laterality Blood specimen 07/07/2017 5:00 PM 017 4:58 (specimen) EST PM EST Daphne Shahid MD BLOOD BANK ORDERABLES Performing Organization Address City/State/ZIP [place] [address] Platelet count (07/07/2017 4:55 PM EST) P athologist Signature Platelets 177 145 - 357 [facility] x10(3)/[facility] LABORATORY Plat Immature 1.5 0.0 - 7.4 [place] % % [facility] Comment: Limitation of the Immature Platelet Frac tion (IPF)-May be less reliable when the platelet count is less than 37v320/u L due to statistical imprecision. The IPF [...] in a decreased state of production. References: [employer] The Clinical Value of the Immature Platelet Fraction (IPF) in Cell Recovery Document Number 10-1143 12/2010 [employer] The Role of the Imm ature [...] Organization Address City/State/ZIP [place] [address] (ABNORMAL) Hemoglobin and Hematocrit, blood (07/07/2017 4:55 PM EST) P athologist Signature Hemoglobin 9.1 (L) 13.7 - 16.5 [facility] gm/dL [facility] Comment: This result has been called to MALKA MORAN by DONALD GROSSMAN on 07 07 2017 at 1734, and has been read back. Hematocrit 26.6 (L) 40.5 - 48.5 % [facility] Comment: This result has [...] Organization Address City/State/ZIP [place] [address] (ABNORMAL) BLOOD GAS 2 ARTERIAL (07/07/2017 4:38 PM EST) Analysis Performed At Patho logist Time Signature pH Art 7.37 7.35 - [facility] 7.45 [facility] pCO2 Art 44 35 - 45 [facility] mmHg [facility] pO2 Art 322 (H) 85 - 104 [facility] LABORATORY HCO3 Art 24.9 20.0 - [facility] 26.0 [facility] mmol/L [facility] BE Art -0.4 -3.0 - 3.0 [facility] mmol/L [facility] Hgb Blood Gas 10.1 (L) 13.7 - [facility] 16.5 gm/dL [facility] O2HB Art 98.7 (H) 94.0 - [facility] 97.0 % [facility] COHB Art 0.1 % [facility] Comment: Nonsmokers: [...] Blood 0.89 (Critical) 1.15 - 1.33 mmol/L [facility] Comment: Noted by optical instrument inspector. Note: ??Total bilirubin higher than 20 [...] Organization Address City/State/ZIP Code Phon e Number [place] [id number] (ABNORMAL) BLOOD GAS 2 VENOUS (07/07/2017 4:06 PM EST) Analysis Performed At Patho logist Time Signature pH Cody 7.31 (L) 7.32 - [facility] 7.42 [facility] pCO2 Cody 47 41 - 51 [facility] LABORATORY pO2 Cody 53 (H) 25 - 40 [facility] LABORATORY HCO3 Cody 22.7 mmol/L [facility] BE Cody -3.7 mmol/L [facility] Hgb Blood Gas 10.2 (L) 13.7 - [facility] 16.5 gm/dL [facility] O2HB Cody 81.0 % [facility] COHB Cody 1.0 % [facility] Comment: Nonsmokers: [...] Blood 0.90 (Critical) 1.15 - 1.33 mmol/L [facility] Comment: Noted by optical instrument inspector. Note: ??Total bilirubin higher than 20 m g/dL may lead to falsely low ionized calcium. CL Whole Blood 100 98 - 107 mmol/L [facility] Gluc Whole Bld 231 (H) 65 - 199 mg/dL [facility] Comment: Diabetes: >=200 mg/dL plus symp toms Lactate WB 1.1 0.5 - 2.2 mmol/L [facility] BGas Source Venous [facility] Specimen Anatomical Collection Method Collection Time Receive d Time (Source) Location / / Volume Laterality Blood specimen 07/07/2017 4:06 PM 017 4:06 (specimen) EST PM EST Daphne Shahid MD CHEMISTRY ORDERABLES Performing Organization Address City/State/[place] [address] (ABNORMAL) BLOOD GAS 2 ARTERIAL (07/07/2017 4:05 PM EST) Analysis Performed At Patho logist Time Signature pH Art 7.36 7.35 - [facility] 7.45 [facility] pCO2 Art 40 35 - 45 [facility] LABORATORY pO2 Art 282 (H) 85 - 104 [facility] LABORATORY HCO3 Art 22.1 20.0 - [facility] 26.0 [facility] LABORATORY BE Art -3.4 (L) -3.0 - 3.0 [facility] mmol/L [facility] Hgb Blood Gas 10.2 (L) 13.7 - [facility] 16.5 gm/dL [facility] O2HB Art 98.4 (H) 94.0 - [facility] 97.0 % [facility] COHB Art 0.3 % [facility] [...] Blood 0.86 (Critical) 1.15 - 1.33 mmol/L [facility] Comment: Noted by optical instrument inspector. Note: ??Total bilirubin higher than 20 [...] Organization Address City/State/[place] [address] (ABNORMAL) BLOOD GAS 2 ARTERIAL (07/07/2017 2:29 PM EST) Analysis Performed At Patho logist Time Signature pH Art 7.43 7.35 - [facility] 7.45 [facility] pCO2 Art 36 35 - 45 [facility] LABORATORY pO2 Art 221 (H) 85 - 104 [facility] LABORATORY HCO3 Art 23.2 20.0 - [facility] 26.0 [facility] mmol/[facility] LABORATORY BE Art -1.2 -3.0 - 3.0 [facility] mmol/L [facility] Hgb Blood Gas 13.9 13.7 - [facility] 16.5 gm/dL [facility] O2HB Art 97.8 (H) 94.0 - [facility] 97.0 % [facility] COHB Art 1.1 % [facility] Comment: Nonsmokers: 0.5-1.5% COHB Smokers: Variable, but usually less than 10% Toxic: 20-30% COHB Lethal: Greater than 60% COHB METHB Art 0.3 <=1.5 % [facility] Na Whole Blood 139 135 - 145 mmol/L [facility] K Whole Blood 4.0 3.5 - 5.0 mmol/L [facility] Comment: Please note: Patients with WBC >100,000 may have falsely elevated Potassium levels. Contact the Clinical Chemistry L aboratory if there are any questions. ICa Whole Blood 1.11 (L) 1.15 - 1.33 mmol/L [facility] Comment: Note: ??Total bilirubin higher than 20 m g/dL may lead to falsely low ionized calcium. CL Whole Blood 104 98 - 107 mmol/L [facility] Gluc Whole Bld 184 [...] Organization Address City/State/[place] [address] Prepare Coag Factors (Non-Hemophilia) (07/07/2017 1:25 PM EST) athologist Signature Dispensed? Yes [facility] Specimen Anatomical Collection Method Collection Time Receive d Time (Source) Location / / Volume Laterality Blood specimen 07/07/2017 1:25 PM 017 1:21 (specimen) EST PM EST Daphne Shahid MD BLOOD BANK ORDERABLES Performing Organization Address City/[facility]/ZIP Code Phon e Number [address] Prepare RBC (07/07/2017 1:10 PM EST) athologist Signature Dispensed? Yes [facility] Specimen Anatomical Collection Method Collection Time Receive d Time (Source) Location / / Volume Laterality Blood specimen 07/07/2017 1:10 PM 017 1:05 (specimen) EST PM EST Daphne Shahid MD BLOOD BANK ORDERABLES Performing Organization Address City/[facility]/ZIP Code Phon e Number [address] POCT Glucose (07/07/2017 11:56 AM EST) athologist Signature POC Glucose 188 65 - 199 [facility] Comment: [...] City/[facility]/ZIP [place] [address] POCT Glucose (07/07/2017 11:05 AM EST) athologist Signature POC Glucose 168 65 - 199 [facility] mg/dL [facility] Comment: [...] City/[facility]/ZIP Code Phon e Number [address] POCT Glucose (07/07/2017 10:02 AM EST) athologist Signature POC Glucose 191 65 - 199 [place] [facility] mg/dL [facility] Comment: [...] City/[facility]/ZIP Code Phon e Number [address] POCT Glucose (07/07/2017 7:53 AM EST) athologist Signature POC Glucose 178 65 - 199 [place] [facility] mg/dL [facility] Comment: [...] City/[facility]/ZIP Code Phon e Number [address] POCT Glucose (07/07/2017 7:03 AM EST) athologist Signature POC Glucose 188 65 - 199 [place] [facility] mg/dL [facility] Comment: [...] Address City/State/ZIP Code Phon e Number [address] (ABNORMAL) POCT Glucose (07/07/2017 6:17 AM EST) athologist Signature POC Glucose 207 (H) 65 - 199 [facility]/dL [facility] [facility] Comment: [...] Address City/State/ZIP Code Phon e Number [address] Differential, Automated (07/07/2017 5:15 AM EST) athologist [facility] Neutrophils % 69.7 % [facility] Neutr Abs (ANC) 5.32 1.70 - [facility] 6.10 [facility] x10(3)/[facility] LABORATORY Lymphocytes % 16.3 % [facility] Lymphocytes Abs 1.2 0.9 - 3.2 [facility] x10(3)/[facility] LABORATORY Monocytes % 10.5 % [facility] Monocyte Abs 0.8 0.3 - 0.9 [facility] x10(3)/[facility] LABORATORY Eosinophils % 2.5 % [facility] Eosinophils Abs 0.2 0.0 - 0.4 [facility] x10(3)/[facility] LABORATORY Basophils % 0.7 % [facility] Basophils Abs 0.0 0.0 - 0.1 [facility] x10(3)/[facility] LABORATORY Immature Gran % 0.30 % [facility] [...] Gran Abs 0.02 0.00 - 0.04 x10(3)/[facility] MAR Y [facility] Specimen Anatomical Collection Method Collection Time Receive d Time (Source) Location / / Volume Laterality Blood specimen 07/07/2017 5:15 AM 017 5:34 (specimen) EST AM EST Resulting Agency Comment Spec In Lab Daphne Shahid MD HEMATOLOGY ORDERABLES Performing Organization Address City/State/[place] [address] (ABNORMAL) Hemogram (07/07/2017 5:15 AM EST) Analysis Performed At Patho logist Time Signature WBC 7.6 4.0 - 9.5 [facility] x10(3)/[facility] LABORATORY RBC 4.82 4.58 - [facility] 5[facility]54 [facility] x10(6)/[facility] LABORATORY Hemoglobin 14.4 13.7 - [facility] 16.5 gm/dL [facility] Hematocrit 42.1 40.5 - [facility] 48.5 % [facility] MCV 87.3 82.9 - [facility] 93.1 [facility] LABORATORY MCH 29.9 27.5 - [facility] 32.1 pg [facility] MCHC 34.2 32.0 - [facility] 35.7 gm/dL [facility] Platelets 188 145 - 357 [facility] x10(3)/[facility] LABORATORY RDWSD 45.1 (H) 36.0 - [facility] 45.0 [facility] LABORATORY RDWCV 14.3 (H) 11.4 - [facility] 13.8 % [facility] MPV 9.4 7.6 - 12.9 [facility] LABORATORY nRBC % Auto 0.0 % [facility] nRBC Abs Auto 0.000 0.000 - [facility] 0.000 [facility] x10(3)/[facility] LABORATORY Specimen Anatomical Collection Method Collection Time Receive d Time (Source) Location / / Volume Laterality Blood specimen 07/07/2017 5:15 AM 017 5:34 (specimen) EST AM EST Resulting Agency Comment Spec In Lab Daphne Shahid MD HEMATOLOGY ORDERABLES Performing Organization Address City/[facility]/ZIP [place] [address] (ABNORMAL) APTT (07/07/2017 5:15 AM EST) athologist Signature PTT 69 (H) 25 - 35 sec [facility] Comment: The recommended therapeutic range for fu ll dose, unfractionated heparin at [facility] is 80 ? [...] City/[facility]/ZIP [place] [address] Magnesium (07/07/2017 5:15 AM EST) athologist Signature Magnesium 0.94 0.69 - 1.07 [facility] mmol/L [facility] Specimen Anatomical Collection Method Collection Time Receive d Time (Source) Location / / Volume Laterality Blood specimen 07/07/2017 5:15 AM 017 5:34 (specimen) EST AM EST Resulting Agency Comment Spec In Lab Daphne Shahid MD CHEMISTRY ORDERABLES Performing Organization Address City/[facility]/ZIP [place] [address] (ABNORMAL) Basic Metabolic Panel (non-fasting) (07/07/2017 5:15 AM EST) P athologist Signature Glucose Lvl 203 (H) 65 - 199 [facility] mg/dL [facility] Comment: [...] mmol/L [facility] Anion Gap 14 5 [...] or in patients with acute kidney failure. [email or web address] [email or web address] Specimen Anatomical Collection Method Collection Time Receive d Time (Source) Location / / Volume Laterality Blood specimen 07/07/2017 5:15 AM 017 5:34 (specimen) EST AM EST Resulting Agency Comment Spec In Lab Daphne Shahid MD CHEMISTRY ORDERABLES Performing Organization Address City/State/[place] [address] (ABNORMAL) Cardiac Enzymes (LEB/CGP) (07/07/2017 5:15 AM EST) P athologist Signature Troponin-T 2.07 (H) 0.00 - [facility] 0.00 ng/mL [facility] Comment: The 99th percentile for [...] additional sample may be indicated. Reference: Third [place] Definition of Myocardial Infarction. Journal of the [place] [employer] 2012;60:1581-98 CK, Total 88 0 - 200 unit/L [facility] Specimen Anatomical Collection Method Collection Time Receive d Time (Source) Location / / Volume Laterality Blood specimen 07/07/2017 5:15 AM 017 5:34 (specimen) EST AM EST Resulting Agency Comment Spec In Lab Daphne Shahid MD CHEMISTRY ORDERABLES Performing Organization Address City/[facility]/ZIP Code Phon e Number [address] POCT Glucose (07/07/2017 5:01 AM EST) P athologist Signature POC Glucose 182 65 - 199 [facility] mg/dL [facility] Comment: [...] City/[facility]/ZIP [place] [address] POCT Glucose (07/07/2017 4:08 AM EST) athologist Signature POC Glucose 199 65 - 199 [facility] mg/dL [facility] Comment: [...] Organization Address City/State/ZIP [place] [address] POCT Glucose (07/07/2017 3:03 AM EST) athologist Signature POC Glucose 188 65 - 199 [facility] mg/dL [facility] Comment: [...] City/[facility]/ZIP [place] [address] (ABNORMAL) POCT Glucose (07/07/2017 2:08 AM EST) athologist Signature POC Glucose 200 (H) 65 - 199 [facility] mg/dL [facility] Comment: [...] Organization Address City/State/ZIP [place] [address] (ABNORMAL) POCT Glucose (07/07/2017 1:31 AM EST) P athologist Signature POC Glucose 209 (H) 65 - 199 [facility] mg/dL [facility] [...] Organization Address City/State/[place] [address] XR Chest PA or [...] Glucose 161 65 - 199 [facility] mg/dL [facility] Comment: [...] City/[facility]/ZIP [place] [address] (ABNORMAL) APTT (07/07/2017 12:00 AM EST) athologist Signature PTT 103 (H) 25 - 35 sec [facility] Comment: The recommended therapeutic range for fu ll dose, unfractionated heparin at [facility] is 80 ? [...] City/[facility]/ZIP [place] [address] POCT Glucose (07/06/2017 9:55 PM EST) athologist Signature POC Glucose 109 65 - 199 [facility] mg/dL [facility] Comment: [...] Organization Address City/State/ZIP [place] [address] POCT Glucose (07/06/2017 9:04 PM EST) athologist Signature POC Glucose 120 65 - 199 [facility] mg/dL [facility] Comment: [...] Address City/State/ZIP Code Phon e Number [address] POCT Glucose (07/06/2017 7:45 PM EST) athologist Signature POC Glucose 158 65 - 199 [facility] mg/dL [facility] [...] Address City/State/ZIP Code Phon e Number [address] Potassium (07/06/2017 7:40 PM EST) athologist Signature Potassium 3.9 3.5 - 5.0 [facility] mmol/L [facility] Comment: Please note: ??Patients with [...] City/[facility]/ZIP [place] [address] (ABNORMAL) Cardiac Enzymes (LEB/CGP) (07/06/2017 7:40 PM EST) athologist Signature Troponin-T 2.27 (H) 0.00 - [facility] 0.00 ng/mL [facility] Comment: The 99th percentile for [...] additional sample may be indicated. Reference: Third [place] Definition of Myocardial Infarction. Journal of the [place] [employer] 2012;60:1581-98 CK, Total 93 0 - 200 unit/L [facility] Specimen Anatomical Collection Method Collection Time Receive d Time (Source) Location / / Volume Laterality Blood specimen 07/06/2017 7:40 PM 017 7:52 (specimen) EST PM EST Resulting Agency Comment Spec In Lab Daphne Shahid MD CHEMISTRY ORDERABLES Performing Organization Address City/[facility]/ZIP [place] [address] (ABNORMAL) POCT Glucose (07/06/2017 7:13 PM EST) athologist Signature POC Glucose 200 (H) 65 - 199 [facility] mg/dL [facility] Comment: [...] City/[facility]/ZIP [place] [address] (ABNORMAL) APTT (07/06/2017 6:15 PM EST) athologist Signature PTT 94 (H) 25 - 35 sec [facility] Comment: The recommended therapeutic range for fu ll dose, unfractionated heparin at [facility] is 80 ? [...] City/[facility]/ZIP [place] [address] (ABNORMAL) POCT Glucose (07/06/2017 6:03 PM EST) athologist Signature POC Glucose 236 (H) 65 - 199 [facility] mg/dL [facility] Comment: [...] Organization Address City/State/ZIP [place] [address] (ABNORMAL) POCT Glucose (07/06/2017 5:01 PM EST) athologist Signature POC Glucose 235 (H) 65 - 199 [facility] mg/dL [facility] Comment: [...] Organization Address City/State/ZIP [place] [address] (ABNORMAL) POCT Glucose (07/06/2017 4:06 PM EST) athologist Signature POC Glucose 202 (H) 65 - 199 [facility] mg/dL [facility] Comment: [...] Organization Address City/State/ZIP [place] [address] POCT Glucose (07/06/2017 2:59 PM EST) athologist Signature POC Glucose 178 65 - 199 [facility] mg/dL [facility] Comment: [...] Organization Address City/State/ZIP [place] [address] (ABNORMAL) Cardiac Enzymes (LEB/CGP) (07/06/2017 2:10 PM EST) athologist Signature Troponin-T 2.34 (H) 0.00 - [facility] ng/mL [facility] Comment: The 99th percentile for [...] additional sample may be indicated. Reference: Third [place] Definition of Myocardial Infarction. Journal of the [place] [employer] 2012;60:1581-98 CK, Total 101 0 - 200 unit/L [facility] Specimen Anatomical Collection Method Collection Time Receive d Time (Source) Location / / Volume Laterality Blood specimen 07/06/2017 2:10 PM 017 2:26 (specimen) EST PM EST Resulting Agency Comment Spec In Lab Daphne Shahid MD CHEMISTRY ORDERABLES Performing Organization Address City/State/[place] [address] [facility] [address] POCT Glucose (07/06/2017 2:08 PM EST) athologist Signature POC Glucose 192 65 - 199 [facility] mg/dL [facility] Comment: [...] Organization Address City/State/ZIP [place] [address] POCT Glucose (07/06/2017 1:04 PM EST) P athologist Signature POC Glucose 162 65 - 199 [facility] mg/dL [facility] Comment: [...] City/[facility]/ZIP [place] [address] POCT Glucose (07/06/2017 12:05 PM EST) P athologist Signature POC Glucose 196 65 - 199 [facility] mg/dL [facility] Comment: [...] Organization Address City/State/ZIP [place] [address] EKG 12 Lead (07/06/2017 12:00 PM EST) Component Value Ref Range Test Analysis Performed Pathologis t Method Time At Signature Ventricular rate 91 BPM MUSE SYSTEM Atrial Rate 91 BPM MUSE SYSTEM P-R Interval 140 ms MUSE SYSTEM QRS Duration 94 ms MUSE SYSTEM Q-T Interval 394 ms MUSE SYSTEM QTC Calculated 484 ms MUSE SYSTEM (Bezet) Calculated P Stover 36 degrees MUSE SYSTEM Calculated R Stover -19 degrees MUSE SYSTEM Calculated T Stover 104 degrees MUSE SYSTEM INTERPRETATION Normal sinus rhythm MUSE SYSTEM 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) ST & T wave abnormality, consider lateral ischemia Abnormal ECG When compared with ECG of 05-JUL-2017 20:39, No significant change was found Confirmed by MD Luci, Taurus Braun ([id number]) on 07/06/2017 5:07:33 PM Specimen Anatomical Collection Method Collection Time Receive d Time (Source) Location / / Volume Laterality 07/06/2017 12:00 07/06/2017 5:07 PM EST PM EST Daphne Shahid MD ECG ORDERABLES Performing Organization Address City/State/ZIP Code Phon e Number MUSE SYSTEM ABORH Recheck Status (07/06/2017 12:00 PM EST) [facility] Method Time Signature ABORH Type Completed [facility] LABORATORY Specimen Anatomical Collection Method Collection Time Receive d Time (Source) Location / / Volume Laterality Blood specimen 07/06/2017 12:00 7 (specimen) PM EST 12:24 PM EST Resulting Agency Comment Spec In Lab Daphne Shahid MD BLOOD BANK ORDERABLES Performing Organization Address City/[facility]/ZIP [place] [address] Antibody screen (07/06/2017 12:00 PM EST) [facility] Method Time Signature Ab Screen Negative [facility] LABORATORY Expires at 07/09/2017 [facility] [id number] on: [facility] Specimen Anatomical Collection Method Collection Time Receive d Time (Source) Location / / Volume Laterality Blood specimen 07/06/2017 12:00 7 (specimen) PM EST 12:24 PM EST Resulting Agency Comment Spec In Lab Daphne Shahid MD BLOOD BANK ORDERABLES Performing Organization Address City/[facility]/ZIP [place] [address] ABO/Rh Typing (07/06/2017 12:00 [...] City/[facility]/ZIP [place] [address] Prothrombin Time (07/06/2017 11:24 AM EST) athologist Signature PT 13.3 11.8 - 14.0 [facility] LABORATORY INR 1.0 0.9 - 1.1 [facility] LABORATORY [...] City/[facility]/ZIP [place] [address] (ABNORMAL) APTT (07/06/2017 11:24 AM EST) athologist Signature PTT 52 (H) 25 - 35 sec [facility] Comment: The recommended therapeutic range for fu ll dose, unfractionated heparin at [facility] is 80 ? [...] Address City/State/ZIP Code Phon e Number [address] POCT Glucose (07/06/2017 11:02 AM EST) P athologist Signature POC Glucose 187 65 - 199 [facility] mg/dL [facility] Comment: [...] City/[facility]/ZIP Code Phon e Number [address] POCT Glucose (07/06/2017 10:18 AM EST) athologist Signature POC Glucose 193 65 - 199 [facility] mg/dL [facility] Comment: [...] Address City/State/ZIP Code Phon e Number [address] POCT Glucose (07/06/2017 9:25 AM EST) P athologist Signature POC Glucose 182 65 - 199 [facility] mg/dL [facility] Comment: [...] Address City/State/ZIP Code Phon e Number [address] (ABNORMAL) Cardiac Enzymes (LEB/CGP) (07/06/2017 8:10 AM EST) athologist Signature Troponin-T 2.26 (H) 0.00 - [facility] 0.00 ng/mL [facility] Comment: The 99th percentile for [...] additional sample may be indicated. Reference: [place] Definition of Myocardial Infarction. Journal of the [place] [employer] 2012;60:1581-98 CK, Total 124 0 - 200 unit/L [facility] Specimen Anatomical Collection Method Collection Time Receive d Time (Source) Location / / Volume Laterality Blood specimen 07/06/2017 8:10 AM 017 8:23 (specimen) EST AM EST Resulting Agency Comment Spec In Lab Daphne Shahid MD CHEMISTRY ORDERABLES Performing Organization Address City/[facility]/ZIP Code Phon e Number [address] Magnesium (07/06/2017 8:10 AM EST) athologist Signature Magnesium 0.84 0.69 - 1.07 [facility] mmol/L [facility] Specimen Anatomical Collection Method Collection Time Receive d Time (Source) Location / / Volume Laterality Blood specimen 07/06/2017 8:10 AM 017 8:21 (specimen) EST AM EST Resulting Agency Comment Spec In Lab Daphne Shahid MD CHEMISTRY ORDERABLES Performing Organization Address City/State/[place] [address] (ABNORMAL) Basic Metabolic Panel (non-fasting) (07/06/2017 8:10 AM EST) P athologist Signature Glucose Lvl 199 65 - 199 [facility] mg/dL [facility] Comment: [...] or in patients with acute kidney failure. [email or web address] [email or web address] Specimen Anatomical Collection Method Collection Time Receive d Time (Source) Location / / Volume Laterality Blood specimen 07/06/2017 8:10 AM 017 8:21 (specimen) EST AM EST Resulting Agency Comment Spec In Lab Daphne Shahid MD CHEMISTRY ORDERABLES Performing Organization Address City/[facility]/ZIP Code Phon e Number [address] POCT Glucose (07/06/2017 7:34 AM EST) P athologist Signature POC Glucose 198 65 - 199 [facility] mg/dL [facility] Comment: [...] City/[facility]/ZIP Code Phon e Number [address] POCT Glucose (07/06/2017 7:03 AM EST) athologist Signature POC Glucose 181 65 - 199 [facility] mg/dL [facility] Comment: [...] City/[facility]/ZIP [place] [address] XR Chest PA or [...] Signature POC Glucose 172 65 - 199 [facility] mg/dL [facility] Comment: [...] Organization Address City/State/[place] [address] POCT Glucose (07/06/2017 5:08 AM EST) athologist Signature POC Glucose 154 65 - 199 [place] mg/dL [facility] Comment: [...] Address City/State/ZIP Code Phon e Number [address] POCT Glucose (07/06/2017 4:05 AM EST) athologist Signature POC Glucose 142 65 - 199 [facility] mg/dL [facility] Comment: [...] Address City/State/ZIP Code Phon e Number [address] POCT Glucose (07/06/2017 3:00 AM EST) athologist Signature POC Glucose 116 65 - 199 [facility] mg/dL [facility] Comment: [...] Organization Address City/State/ZIP [place] [address] Potassium (07/06/2017 2:20 AM EST) athologist Signature Potassium 3.9 3.5 - 5.0 [facility] mmol/L [facility] Comment: Please note: ??Patients with [...] Organization Address City/State/[place] [address] Differential, Automated (07/06/2017 2:20 AM EST) athologist Signature Neutrophils % 72.9 % [facility] Neutr Abs (ANC) 5.53 1.70 - [facility] 6.10 [facility] x10(3)/[facility] LABORATORY Lymphocytes % 16.4 % [facility] Lymphocytes Abs 1.2 0.9 - 3.2 [facility] x10(3)/[facility] LABORATORY Monocytes % 9.4 % [facility] Monocyte Abs 0.7 0.3 - 0.9 [facility] x10(3)/[facility] LABORATORY Eosinophils % 0.5 % [facility] Eosinophils Abs 0.0 0.0 - 0.4 [facility] x10(3)/[facility] LABORATORY Basophils % 0.4 % [facility] Basophils Abs 0.0 0.0 - 0.1 [facility] x10(3)/[facility] LABORATORY Immature Gran % 0.40 % [facility] [...] Gran Abs 0.03 0.00 - 0.04 x10(3)/[facility] MAR Y [facility] LABORATORY Specimen Anatomical Collection Method Collection Time Receive d Time (Source) Location / / Volume Laterality Blood specimen 07/06/2017 2:20 AM 017 2:33 (specimen) EST AM EST Resulting Agency Comment Spec In Lab Daphne Shahid MD HEMATOLOGY ORDERABLES Performing Organization Address City/State/[place] [address] (ABNORMAL) Hemogram (07/06/2017 2:20 AM EST) Analysis Performed At Patho logist Time Signature WBC 7.6 4.0 - 9.5 [facility] x10(3)/[facility] LABORATORY RBC 4.52 (L) 4.58 - [facility] 5.54 [facility] x10(6)/[facility] LABORATORY Hemoglobin 13.4 (L) 13.7 - [facility] 16.[facility] gm/dL [facility] Hematocrit 39.7 (L) 40.5 - [facility] 48.5 % [facility] MCV 87.8 82.9 - [facility] 93.1 [facility] LABORATORY MCH 29.6 27.5 - [facility] 32.1 pg [facility] MCHC 33.8 32.0 - [facility] 35.7 gm/dL [facility] Platelets 189 145 - 357 [facility] x10(3)/[facility] LABORATORY RDWSD 45.6 (H) 36.0 - [facility] 45.0 [facility] LABORATORY RDWCV 14.3 (H) 11.4 - [facility] 13.8 % [facility] MPV 9.1 7.6 - 12.9 [facility] LABORATORY nRBC % Auto 0.0 % [facility] nRBC Abs Auto 0.000 0.000 - [facility] 0.000 [facility] x10(3)/[facility] LABORATORY Specimen Anatomical Collection Method Collection Time Receive d Time (Source) Location / / Volume Laterality Blood specimen 07/06/2017 2:20 AM 017 2:33 (specimen) EST AM EST Resulting Agency Comment Spec In Lab Daphne Shahid MD HEMATOLOGY ORDERABLES Performing Organization Address City/[facility]/ZIP [place] [address] (ABNORMAL) APTT (07/06/2017 2:20 AM EST) athologist Signature PTT 52 (H) 25 - 35 sec [facility] Comment: The recommended therapeutic range for fu ll dose, unfractionated heparin at [facility] is 80 ? [...] City/[facility]/ZIP [place] [address] POCT Glucose (07/06/2017 2:20 AM EST) athologist [facility] POC Glucose 115 65 - 199 [facility] mg/dL [facility] Comment: [...] City/[facility]/ZIP [place] [address] (ABNORMAL) Cardiac Enzymes (LEB/CGP) (07/06/2017 2:20 AM EST) athologist [facility] Troponin-T 2.13 (H) 0.00 - [facility] 0.00 ng/mL [facility] Comment: The 99th percentile for [...] additional sample may be indicated. Reference: Third [place] Definition of Myocardial Infarction. Journal of the [place] College of Cardiology 2012;60:1581-98 CK, Total 129 0 - 200 unit/L [facility] Specimen Anatomical Collection Method Collection Time Receive d Time (Source) Location / / Volume Laterality Blood specimen 07/06/2017 2:20 AM 017 2:33 (specimen) EST AM EST Resulting Agency Comment Spec In Lab Daphne Shahid MD CHEMISTRY ORDERABLES Performing Organization Address City/State/[place] [address] (ABNORMAL) Hemoglobin A1c (07/06/2017 [...] Est Avg Gluc See note mg/dL [place] [facility] Comment: Estimated Average Glucose not [...] into estimated average glucose values. ??Diabetes Care 2008:31(8):4906-8022. Specimen Anatomical Collection Method Collection Time Receive d Time (Source) Location / / Volume Laterality Blood specimen 07/06/2017 2:20 AM 017 2:34 (specimen) EST AM EST Resulting Agency Comment Spec In Lab Daphne Shahid MD CHEMISTRY ORDERABLES Performing Organization Address City/State/[place] [address] (ABNORMAL) Lipid Panel (07/06/2017 2:20 AM EST) [facility] gist Method Time Signature Chol, Total 150 <=239 [facility] mg/dL [facility] Triglycerides 129 <=199 [place] mg/dL [facility] HDL 32 (L) >=40 [place] mg/dL [facility] LDL Cholesterol 92 <=190 [place] mg/dL [facility] Chol/HDL Ratio 4.7 ratio [facility] Lipid See Note [place] Interpretation [facility] Comment: Lipid management should be guided by a p atient? s ASCVD risk, goals and preferences. ACC/AHA Guidelines recommend high intens ity statin if clinical ASCVD or LDL greater than or equal to 190 mg/dL. http://[employer].com/BBX-NLH-Hjkqwzzsc Adults aged 40-75 with LDL 70-189 mg/dL should have their 10 year ASCVD risk estimated with the ACC/AHA ASCVD risk es timator http://tools.acc.org/ZLHAU-Wsxl-Lqnhpmtm r/ Statin should be discussed if risk [...] Organization Address City/State/[place] [address] POCT Glucose (07/06/2017 1:09 AM EST) athologist Signature POC Glucose 121 65 - 199 [facility] mg/dL [facility] Comment: [...] Address City/State/ZIP Code Phon e Number [address] POCT Glucose (07/06/2017 12:06 AM EST) P athologist Signature POC Glucose 147 65 - 199 [place] mg/dL [facility] Comment: [...] City/[facility]/ZIP [place] [address] (ABNORMAL) POCT Glucose (07/05/2017 10:56 PM EST) P athologist Signature POC Glucose 200 (H) 65 - 199 [facility]dL [facility] Comment: [...] Organization Address City/State/ZIP [place] [address] (ABNORMAL) POCT Glucose (07/05/2017 10:05 PM EST) P athologist Signature POC Glucose 225 (H) 65 - 199 [facility] mg/dL [facility] Comment: [...] Organization Address City/State/ZIP [place] [address] (ABNORMAL) POCT Glucose (07/05/2017 9:02 PM EST) P athologist Signature POC Glucose 301 (H) 65 - 199 [facility] mg/dL [facility] Comment: [...] Organization Address City/State/ZIP [place] [address] XR Chest PA or [...] 474 ms MUSE SYSTEM (Bezet) Calculated P Stover 50 degrees MUSE SYSTEM Calculated R Stover -28 degrees MUSE SYSTEM Calculated T Stover 90 degrees MUSE SYSTEM INTERPRETATION Sinus tachycardia [...] Method Time Signature Neutrophils % 88.4 % [facility] Neutr Abs (ANC) 9.08 (H) 1.70 - [facility] 6.10 [facility] x10(3)/[facility] L LABORATORY Lymphocytes % 7.0 % [facility] Lymphocytes Abs 0.7 (L) 0.9 - 3.2 [facility] x10(3)/[facility] LABORATORY Monocytes % 3.7 % [facility] Monocyte Abs 0.4 0.3 - 0.9 [facility] x10(3)/[facility] LABORATORY Eosinophils % 0.1 % [facility] Eosinophils Abs 0.0 0.0 - 0.4 [facility] x10(3)/[facility] LABORATORY Basophils % 0.2 % [facility] Basophils Abs 0.0 0.0 - 0.1 [facility] x10(3)/[facility] LABORATORY Immature Gran % 0.60 % [...] Organization Address City/State/[place] [address] (ABNORMAL) Hemogram (07/05/2017 8:20 PM EST) Analysis Performed At Patho logist Time Signature WBC 10.3 (H) 4.0 - 9.5 [facility] x10(3)/[facility] LABORATORY RBC 4.64 4.58 - [facility] 5.54 [facility] x10(6)/[facility] LABORATORY Hemoglobin 14.1 13.7 - [facility] 16.5 gm/dL [facility] Hematocrit 40.8 40.5 - [facility] 48.5 % [facility] MCV 87.9 82.9 - [facility] 93.1 fL [facility] MCH 30.4 27.5 - [facility] 32.1 pg [facility] MCHC 34.6 32.0 - [place] [facility] 35.7 gm/dL [facility] Platelets 204 145 - 357 [facility] LABORATORY RDWSD 46.1 (H) 36.0 - [place] 45.0 [facility] LABORATORY RDWCV 14.5 (H) 11.4 - [place] [facility] 13.8 % [facility] MPV 9.7 7.6 - 12.9 [place] [facility] LABORATORY nRBC % Auto 0.0 % [facility] nRBC Abs Auto 0.000 0.000 - [place] [facility] 0.000 [facility] x10(3)/[facility] LABORATORY Specimen Anatomical Collection Method Collection Time Receive d Time (Source) Location / / Volume Laterality Blood specimen 07/05/2017 8:20 PM 017 8:27 (specimen) EST PM EST Resulting Agency Comment Spec In Lab Daphne Shahid MD HEMATOLOGY ORDERABLES Performing Organization Address City/[facility]/ZIP [place] [address] APTT (07/05/2017 8:20 PM EST) P athologist Signature PTT 32 25 - 35 sec [facility] Comment: The recommended therapeutic range for fu ll dose, unfractionated heparin at [facility] is 80 ? [...] Organization Address City/State/ZIP [place] [address] (ABNORMAL) Cardiac Enzymes (LEB/CGP) (07/05/2017 8:20 PM EST) P athologist Signature Troponin-T 2.11 (H) 0.00 - [facility] 0.00 ng/mL [facility] Comment: The 99th percentile for [...] additional sample may be indicated. Reference: Third [place] Definition of Myocardial Infarction. Journal of the [place] College of Cardiology 2012;60:1581-98 CK, Total 149 0 - 200 unit/L [facility] Specimen Anatomical Collection Method Collection Time Receive d Time (Source) Location / / Volume Laterality Blood specimen 07/05/2017 8:20 PM 017 8:27 (specimen) EST PM EST Resulting Agency Comment Spec In Lab Daphne Shahid MD CHEMISTRY ORDERABLES Performing Organization Address City/[facility]/[place] [address] (ABNORMAL) Magnesium (07/05/2017 8:20 PM EST) P athologist Signature Magnesium 0.68 (L) 0.69 - 1.07 [facility] mmol/L [facility] Specimen Anatomical Collection Method Collection Time Receive d Time (Source) Location / / Volume Laterality Blood specimen 07/05/2017 8:20 PM 017 8:27 (specimen) EST PM EST Resulting Agency Comment Spec In Lab Daphne Shahid MD CHEMISTRY ORDERABLES Performing Organization Address City/State/ZIP [place] [address] (ABNORMAL) Basic Metabolic Panel (non-fasting) (07/05/2017 8:20 PM EST) P athologist Signature Glucose Lvl 321 (H) 65 - 199 [facility] mg/dL [facility] Comment: [...] mmol/L [facility] Anion Gap 14 5 [...] or in patients with acute kidney failure. http://[employer]/DHnkdep http://[employer]/DHMCnkf Specimen Anatomical Collection Method Collection Time Receive d Time (Source) Location / / Volume Laterality Blood specimen 07/05/2017 8:20 PM 017 8:27 (specimen) EST PM EST Resulting Agency Comment Spec In Lab Daphne Shahid MD CHEMISTRY ORDERABLES Performing Organization Address City/State/ZIP Code Phon e Number [address] (ABNORMAL) POCT Glucose (07/05/2017 7:32 PM EST) P athologist Signature POC Glucose 296 (H) 65 - 199 [facility] mg/dL [facility] Comment: [...] Address City/State/ZIP Code Phon e Number [address] CARDIAC CATHETERIZATION (07/05/2017 6:47 PM EST) Specimen (Source) Anatomical Location Collection Method / Collectio n Time Received Time / Laterality Volume Narrative CARDIOMAC SYSTEM - 07/05/2017 7:27 PM ES T ?[facility] ? Cardiac Cathete rization/Intervention Report ? Patient Name: Natalya, Gregory ? Procedure Date: 07/05/2017 ? A #: [id number] ? Primary Physician: Clarisa, Jet T ? Case #: [id number] ? File Name: [id number] ? Catheterization Order Number: [id number] ? [facility] ? Final Report [place], [place] ? Patient Name: ? Gregory Natalya ?ID#: ?[id number] ? : ?1945 ? Procedure Date: ? [...] presented with: non -STEMI (w/i 7 days). [place] ?Cardiovascular [employer] angina c lass was IV. [...] angio graphy and IABP insertion in label maker. ? Jet Mckenna, M.D. ? Electronically Signed by: Jet Robbins s, M.D. ? Report Finalized: 07/05/2017 ??19:23 ? Report Last Ammended: 10/26/2017 ??10:29 ? Procedure Note Jet Mckenna MD - 10/26/2017Formatt ing of this note might be different from the original. [facility] Cardiac Catheterization/Intervention Re port Patient Name: Gregory Hoang Procedure Date: 07/05/2017 A #: [id number] Primary Physician: Jet Mckenna Case #: [id number] File Name: [id number] Catheterization Order Number: [id number] [facility] Final Report [place], [place] Patient Name: Gregory Hoang ID#: [id number] : 1945 Procedure Date: July 05, [...] presented with: non-STEMI ( w/i 7 days). [place] [employer] angina class was IV. No [...] angiograph y and IABP insertion in label maker. Jet Mckenna M.D. Electronically Signed by: Jet [...] Mccollum ? (Age): 1945(72y) Med Rec#: ? [id number] ?Sex: ?M ? Site Loc: ? [facility] ?Ht / Wt: ??173(cm)/86(kg) Pt. Loc: ?[facility] ? BSA: ?2 Study Date: ?? 07/05/2017 ?Pt. Type: Inpatient Tape: ? Referring: Daphne Shahid ([id number]) Referring: MANDA ALCANTAR Reading: Blade Preston ([id number]) Early Intervention Specialist: Dayami Paula BA, [facility] Diagnosis: *ICD-10-PCS Non-ST elevation [...] E-wave Vmax ?0.8 ?m/sec ? MV deceleration [id number] ?msec ? MV A-wave Vmax ?0.8 ?m/sec [...] ? Mid-Inferior ?Akinetic ? Mid-Inferoseptal ?Hypokinetic ? Timbo-Septal ? Akinetic ? Timbo-Anterior ? Hypokinetic ? Timbo-Lateral ?Hypokinetic ? Timbo-Inferior ? Akinetic ? Timbo-Tip ?Akinetic ? This report has been electronically sign ed by: _ Blade Preston MD ? 07/06/2017 08 :53:15 Images reviewed and interpretation verif ied [facility] Cardiac Ultrasound Laboratory Procedure Note Blade Preston MD - 07/06/2017Formatt ing of this note might be different from the original. Procedure: Transthoracic Echocardiogram Patient: NATALYA MCBRIDE(Age): [birth year]72y) Med Rec#: [id number] Sex: M Site Loc: [facility] Ht / Wt: 173(cm)/86(kg) Pt. Loc: [facility] BSA: 2 Study Date: 07/05/2017 Pt. Type: Inpatie nt Tape: Referring: Daphne Shahid ([id number]) Referring: MANDA ALCANTAR Reading: Blade Preston ([id number]) Early Intervention Specialist: Dayami Paula BA, [facility] Diagnosis: *ICD-10-PCS Non-ST elevation [...] MV E-wave Vmax 0.8 m/sec MV deceleration [id number] msec MV A-wave Vmax 0.8 m/sec MV [...] Hypokinetic Mid-Posterolateral Hypokinetic Mid-Inferior Akinetic Mid-Inferoseptal Hypokinetic Timbo-Septal Akinetic Timbo-Anterior Hypokinetic Timbo-Lateral Hypokinetic Timbo-Inferior Akinetic Timbo-Tip Akinetic This report has been electronically sign ed by: _ Blade Preston MD 07/06/2017 08:53:15 Images reviewed and interpretation verif ied [facility] Cardiac Ultrasound Laboratory Daphne Shahid MD ECHO ORDERABLES Performing Organization Address City/State/ZIP Code Phon e Number [facility] Differential, Automated (07/05/2017 4:55 PM EST) P athologist Signature Neutrophils % 77.0 % [facility] Neutr Abs (ANC) 5.26 1.70 - [facility] 6.10 [facility] x10(3)/[facility] LABORATORY Lymphocytes % 13.3 % [facility] Lymphocytes Abs 0.9 0.9 - 3.2 [facility] x10(3)/[facility] LABORATORY Monocytes % 8.2 % [facility] Monocyte Abs 0.6 0.3 - 0.9 [facility] x10(3)/[facility] LABORATORY Eosinophils % 0.7 % [facility] Eosinophils Abs 0.0 0.0 - 0.4 [facility] x10(3)/[facility] LABORATORY Basophils % 0.4 % [facility] Basophils Abs 0.0 0.0 - 0.1 [facility] x10(3)/[facility] LABORATORY Immature Gran % 0.40 % [facility] [...] Gran Abs 0.03 0.00 - 0.04 x10(3)/[facility] MAR Y [facility] LABORATORY Specimen Anatomical Collection Method Collection Time Receive d Time (Source) Location / / Volume Laterality Blood specimen 07/05/2017 4:55 PM 017 5:24 (specimen) EST PM EST Resulting Agency Comment Spec In Lab Daphne Shahid MD HEMATOLOGY ORDERABLES Performing Organization Address City/State/[place] [address] (ABNORMAL) Hemogram (07/05/2017 4:55 PM EST) Analysis Performed At Patho logist Time Signature WBC 6.8 4.0 - 9.5 [facility] x10(3)/[facility] LABORATORY RBC 4.67 4.58 - [facility] 5.54 [facility] x10(6)/[facility] LABORATORY Hemoglobin 14.0 13.7 - [facility] 16.5 gm/dL [facility]OR[facility] Hematocrit 41.0 40.5 - [facility] 48.5 % [facility] LABOR[facility] MCV 87.8 82.9 - [facility] 93.1 [facility] LABORATORY MCH 30.0 27.5 - [facility] 32.1 pg [facility]ORAT[facility] MCHC 34.1 32.0 - [facility] 35.7 gm/dL [facility] Platelets 197 145 - 357 [facility] x10(3)/[facility] LABORATORY RDWSD 46.4 (H) 36.0 - [facility] 45.0 [facility] LABORATORY RDWCV 14.5 (H) 11.4 - [facility] 13.8 % [facility] LABORATORY MPV 9.7 7.6 - 12.9 [facility] LABORATORY nRBC % Auto 0.0 % [facility] LABORATORY nRBC Abs Auto 0.000 0.000 - [facility] SU 0.000 [facility] x10(3)/[facility] LABORATORY Specimen Anatomical Collection Method Collection Time Receive d Time (Source) Location / / Volume Laterality Blood specimen 07/05/2017 4:55 PM 017 5:24 (specimen) EST PM EST Resulting Agency Comment Spec In Lab Daphne Shahid MD HEMATOLOGY ORDERABLES Performing Organization Address City/[facility]/[place] [address] (ABNORMAL) Cardiac Enzymes (LEB/CGP) (07/05/2017 4:55 PM EST) athologist Signature Troponin-T 1.69 (H) 0.00 - [facility] 0.00 ng/mL [facility] Comment: The 99th percentile for [...] additional sample may be indicated. Reference: Third [place] Definition of Myocardial Infarction. Journal of the [place] College of Cardiology 2012;60:1581-98 CK, Total 191 0 - 200 unit/L [facility] LABOR[facility]ORY Specimen Anatomical Collection Method Collection Time Receive d Time (Source) Location / / Volume Laterality Blood specimen 07/05/2017 4:55 PM 017 5:56 (specimen) EST PM EST Resulting Agency Comment Spec In Lab Daphne Shahid MD CHEMISTRY ORDERABLES Performing Organization Address City/State/ZIP [place] [address] (ABNORMAL) pro-Brain Natriuretic Peptide (07/05/2017 4:55 PM EST) athologist Signature ProBNP 1,598 (H) <=125 [facility] pg/mL [facility]OR[facility]ORY Specimen Anatomical Collection Method Collection Time Receive d Time (Source) Location / / Volume Laterality Blood specimen 07/05/2017 4:55 PM 017 5:24 (specimen) EST PM EST Resulting Agency Comment Spec In Lab Daphne Shahid MD CHEMISTRY ORDERABLES Performing Organization Address City/State/ZIP Code Phon e Number [address] Magnesium (07/05/2017 4:55 PM EST) athologist Signature Magnesium 0.78 0.69 - 1.07 [facility] mmol/L [facility] LABOR[facility]ORY Specimen Anatomical Collection Method Collection Time Receive d Time (Source) Location / / Volume Laterality Blood specimen 07/05/2017 4:55 PM 017 5:24 (specimen) EST PM EST Resulting Agency Comment Spec In Lab Daphne Shahid MD CHEMISTRY ORDERABLES Performing Organization Address City/[facility]/ZIP [place] [address] (ABNORMAL) Basic Metabolic Panel (non-fasting) (07/05/2017 4:55 PM EST) athologist Signature Glucose Lvl 230 (H) 65 - 199 [facility] mg/dL [facility] Comment: [...] mmol/L [facility] Anion Gap 14 5 [...] or in patients with acute kidney failure. http://[employer]DHnkdep http://[employer]DHMCnkf Specimen Anatomical Collection Method Collection Time Receive d Time (Source) Location / / Volume Laterality Blood specimen 07/05/2017 4:55 PM 017 5:24 (specimen) EST PM EST Resulting Agency Comment Spec In Lab Daphne Shahid MD CHEMISTRY ORDERABLES Performing Organization Address City/[facility]/ZIP [place] [address] (ABNORMAL) APTT (07/05/2017 4:55 PM EST) P athologist Signature PTT 41 (H) 25 - 35 sec [facility] Comment: The recommended therapeutic range for fu ll dose, unfractionated heparin at [facility] is 80 ? [...] City/[facility]/ZIP [place] [address] (ABNORMAL) POCT Glucose (07/05/2017 4:53 PM EST) P athologist Signature POC Glucose 208 (H) 65 - 199 [facility] mg/dL [facility] Comment: [...] Address City/State/ZIP Code Phon e Number [address] EKG 12 Lead (07/05/2017 4:32 PM EST) Component Value Ref Range Test Analysis Performed Pathologis t Method Time At Signature Ventricular rate 97 BPM MUSE SYSTEM Atrial Rate 97 BPM MUSE SYSTEM P-R Interval 148 ms MUSE SYSTEM QRS Duration 96 ms MUSE SYSTEM Q-T Interval 364 ms MUSE SYSTEM QTC Calculated 462 ms MUSE SYSTEM (Bezet) Calculated P Stover 48 degrees MUSE SYSTEM Calculated R Stover -33 degrees MUSE SYSTEM Calculated T Stover 98 degrees MUSE SYSTEM INTERPRETATION Normal sinus [...] Coronary atherosclerosis of unspecified type of vessel, chipewwa or graft Cardiomyopathy, ischemic Other specified forms [...] post-op day 1 in the AM Give PA if unable to take PO, Routine Given [...] in dextrose 5% 250 mL EST infusion (ANTIQUE FINISHER) CONTINUOUS PRN, Starting on Wed07/05/17 at 1837, [...] post-op day 1 in the AM Give PA if unable to take PO, Routine atorvastatin [...] Em Jones RN)1600 (Not Given - Provider: mE Jones RN [...] RN) 0922 (Given - Provider: Myrna E Almond, RN) 20 mEq, Oral, DAILY, First dose [...] post-op day 1 in the AM Give PA if unable to take PO
Routine Group [...]
Routine documented in this encounter Care Teams Sr. Vendor Management Associate Relationship Specialty Start Date End Date Lovely Vicente MD PCP - General 04/16/[address] [place] [address] [address] [place] [address] documented as of this encounter
--- OUTSIDE RECORDS SUMMARY | 2022-03-13 11:03 | XMS_ITS | Encounter Summary ---
:1945 Author Organization [facility] [place] [address] Care Team Providers Name Role Phone MiyaAngela STACIE Primary Care Provider Encounter Details Date Type Department Care Team Description 11/27/2013 Orders Only Urology at [facility] Blade Smith, Urinary retention [facility] (Primary Dx) [place] [address] UROLOGY DEPT [place] [id number] Social History Tobacco Use Types Packs/Day Years [...] MD [facility] DR TADEO [place], [place] [address] (Wo rk) 05/28/2022 Appointment Cardiology Zulma Dolan MD [facility] [place], [place] [address] (Wo rk) 05/28/2022 Laboratory Appointment Lab 05/28/2022 Office Visit Cardiology Zulma Dolan [place] [address] Liz Poole PA [facility] [place] [address] 06/10/2022 Office Visit Dermatology Laura Scherer MD [facility] ER DR TEJA GR-DERMAT [place], [place] 0375 (Wo rk) documented as of this encounter Results (ABNORMAL) PSA (11/28/2013 8:02 AM EDT) Analysis Performed At [facility] Time Signature PSA Total 4.07 (H) 0.00 - CERNER (Ultrasensitiv 4.00 ng/mL MILLENNIUM e) Specimen Anatomical Collection Method Collection Time Receive d Time (Source) Location / / Volume Laterality Blood specimen 11/28/2013 8:02 AM 014 8:05 (specimen) EDT AM EDT Resulting Agency Comment Spec In Lab Blade Smith MD CHEMISTRY ORDERABLES Performing Organization Address City/State/Z[place] [address] [facility] documented in this encounter Visit Diagnoses Diagnosis Urinary retention - Primary Retention of urine, unspecified documented in this encounter Care Teams Administration Dean Relationship Specialty Start Date End Date Angela Holliday APRN PCP - General 01/25/13 04/15/[address] [place] [address] documented as of this encounter
--- OUTSIDE RECORDS SUMMARY | 2022-03-13 11:03 | XMS_ITS | Encounter Summary ---
:1945 Author Organization [facility] [place] [address] Care Team Providers Name Role Phone Lovely Vicente MD Primary Care Provider Reason for Visit Reason Onset Date Comments Referral 10/30/2015 Urgent referral for mac on [place]N [place] Encounter Details Date Type Department Care Team Description 10/30/2015 Telephone Ophthalmology at [facility] C Jayson uRiz Referral (Urgent [facility] MD Grabiel referral for mac on [facility] [address] SIM[address]N [place]) [place] [address] OPHTHALMOLOGY DEPT. [phone] [place], [place] 0[address] (Wo rk) Social History Tobacco [...] Nobles MD [facility] CARDIOLOGY [place], [place] 0375 (Wo rk) 05/28/2022 Appointment Cardiology Zulma Dolan MD [facility] [place], [place] 0375 (Wo rk) 05/28/2022 Laboratory Appointment Lab 05/28/2022 Office Visit Cardiology Zulma Dolan [place] [address] Liz Poole PA [facility] [place] [address] 06/10/2022 Office Visit Dermatology Laura Scherer MD [facility] DR TEJA GR-DERMAT OGY [place], [place] 0[address] (Wo rk) documented as of this encounter Visit Diagnoses Not on filedocumented in this encounter Care Teams Brass Pourer Relationship Specialty Start Date End Date Lovely Vicente MD PCP - General 04/16/[address] [place] [address] documented as of this encounter
--- OUTSIDE RECORDS SUMMARY | 2022-03-13 11:03 | XMS_ITS | Encounter Summary ---
:1945 Author Organization [place] [address] Care Team Providers Name Role Phone Lovely Vicente MD Primary Care Provider Reason for Visit Reason Onset Date Comments Pre Procedure Call 12/02/2016 Encounter Details Date Type Department Care Team Description 12/02/2016 Telephone Dermatology at [facility] Mira James LPN Pre Procedure Call [address] [place] [address] Social History Tobacco Use Types Packs/Day [...] MD [facility] DR THOMAS [place], [place] 0[address] (Wo lissa) 05/28/2022 Appointment Cardiology Zulma Dolan MD [facility] [address] [place] [address] (Wo rk) 05/28/2022 Laboratory Appointment Lab 05/28/2022 Office Visit Zulma Garrison MD [facility] [place] [address] Liz Poole PA [facility] [place] [address] 06/10/2022 Office Visit Dermatology Laura Scherer MD [facility] DR TEJA GR-DERMAT [place], [place] 0[address] (Wo rk) documented as of this encounter Visit Diagnoses Not on filedocumented in this encounter Care Teams Environmental Compliance Engineer Relationship Specialty Start Date End Date Lovely Vicente MD PCP - General 04/16/15 [facility] [address] [place] [address] documented as of this encounter
--- OUTSIDE RECORDS SUMMARY | 2022-03-13 11:03 | XMS_ITS | Encounter Summary ---
:1945 Author Organization [facility] Address [facility] [place] [address] Care Team Providers Name Role Phone Lovely Vicente MD Primary Care Provider Reason for Visit Reason Comments Skin Check Encounter Details Date Type Department Care Team Description 11/05/2015 Office Visit Dermatology at [facility] benign nevi; Abdelrahman HOOPER MD Lentigines; [address] [facility] History of melanoma; [place] [address] Skin exam for malignant neoplasm [phone] [facility] [place], [place] [address] Social History Tobacco Use Types [...] MD [facility] [address] TADEO [place], [place] 0375 (Wo rk) 05/28/2022 Appointment Cardiology Zulma Dolan MD [facility] [place], [place] 0[address] (Wo rk) 05/28/2022 Laboratory Appointment Lab 05/28/2022 Office Visit Cardiology Zulma Dolan MD [facility] [place] [address] Liz Poole PA [facility] [place] [address] 06/10/2022 Office Visit Dermatology Laura Scherer MD [facility] DR TEJA GR-DERMAT [place], [place] 0375 (Wo rk) documented as of this encounter Visit Diagnoses Diagnosis Multiple benign nevi Benign neoplasm of skin, site unspecifie d Lentigines Other dyschromia History of melanoma Personal history of malignant melanoma o f skin Skin exam for malignant neoplasm Screening for malignant neoplasm of the skin documented in this encounter Care Teams Salt Washer Harvesting Station Relationship Specialty Start Date End Date Lovely Vicente MD PCP - General 04/16/[address] [place] [address] documented as of this encounter
--- OUTSIDE RECORDS SUMMARY | 2022-03-13 11:03 | XMS_ITS | Encounter Summary ---
:1945 Author Organization [facility] [place] [address] Care Team Providers Name Role Phone Lovely Vicente MD Primary Care Provider Reason for Visit Reason Onset Date Comments Medication Refill 06/19/2016 Encounter Details Date Type Department Care Team Description 06/19/2016 Refill Endocrinology at [facility] Luz Stallings MD [facility] [place] [address] ENDOCRINOLOGY DEPT [phone] [place], [place] [address] (Wo lissa) Social History Tobacco [...] [facility] ER [address] CARLYLE [place] [address] (Wo rk) 05/28/2022 Appointment Cardiology Zulma Dolan MD [facility] [place] [address] [place] 0[address] (Wo rk) 05/28/2022 Laboratory Appointment Lab 05/28/2022 Office Visit Cardiology Zulma Dolan MD [facility] [place] [address] Liz Poole PA [facility] [place] [address] 06/10/2022 Office Visit Dermatology Laura Scherer MD [facility] ER DR TEJA GR-DERMAT [place], [place] [address] (Wo rk) documented as of this encounter Visit Diagnoses Not on filedocumented in this encounter Care Teams Taxi Dancer Relationship Specialty Start Date End Date Lovely Vicente MD PCP - General 04/16/[address] [place] [address] documented as of this encounter
--- OUTSIDE RECORDS SUMMARY | 2022-03-13 11:03 | XMS_ITS | Encounter Summary ---
:1945 Author Organization [place] [place] [address] Care Team Providers Name Role Phone Lovely Vicente MD Primary Care Provider Reason for Visit Reason Comments Medication Refill Encounter Details Date Type Department Care Team Description 05/10/2015 Refill Endocrinology at [facility] Rosalind Covarrubias, [facility] [place] [address] [facility] [phone] ENDOCRINOLOGY [place], [place] 0[address] (Mikayla alcaraz) Social History Tobacco [...] MD [facility] ER DR [place]LYLE [place], [place] [address] (Wo rk) 05/28/2022 Appointment Cardiology Zulma Dolan MD [facility] [place] [address] (Wo rk) 05/28/2022 Laboratory Appointment Lab 05/28/2022 Office Visit Cardiology Zulma Dolan MD [facility] [place] [address] Liz Poole PA [facility] [place] [address] 06/10/2022 Office Visit Dermatology Laura Scherer MD [facility] ER DR LEZAMA RD-DERMAT [place], [place] [address] (Wo rk) documented as of this encounter Visit Diagnoses Not on filedocumented in this encounter Care Teams Circulation Man Relationship Specialty Start Date End Date Lovely Vicente MD PCP - General 04/16/[address] [place] [address] documented as of this encounter
--- OUTSIDE RECORDS SUMMARY | 2022-03-13 11:03 | XMS_ITS | Encounter Summary ---
:1945 Author Organization [facility] [place] [address] Care Team Providers Name Role Phone Angela Holliday APRN Primary Care Provider Encounter Details Date Type Department Care Team Description 04/05/2013 Office Visit Urology at [facility] [place] [address] Social History Tobacco Use Types Packs/Day [...] Nobles MD [facility] ER DR CARLYLE [place] 0[address] (Wo rk) 05/28/2022 Appointment Cardiology Zulma Dolan MD [facility] er [place] 0[address] (Wo rk) 05/28/2022 Laboratory Appointment Lab 05/28/2022 Office Visit Cardiology Zulma Dolan MD [facility] [place] [address] Liz Poole PA [facility] [place] [address] 06/10/2022 Office Visit Dermatology Laura Scherer MD [facility] DR TEJA GR-DERMAT [place], [place] [address] (Wo rk) documented as of this encounter Visit Diagnoses Not on filedocumented in this encounter Care Teams Fabric Worker Relationship Specialty Start Date End Date Angela Holliday APRN PCP - General 01/25/13 04/15/[address] [place] [address] documented as of this encounter
--- OUTSIDE RECORDS SUMMARY | 2022-03-13 11:03 | XMS_ITS | Encounter Summary ---
:1945 Author Organization [facility] [place] [address] Care Team Providers Name Role Phone Angela Sotelo APRN Primary Care Provider Encounter Details Date Type Department Care Team Description 01/16/2014 Surgery Gastroenterology at [facility] Nohemi Swann, COLONOSCOPY, [facility] Jorge mcnamara MD POLYPECTOMY, [place] [address] [facility] L[facility] SNARE ([facility] [phone] DR Cintron) GASTROENTEROLOGY DEPT. [place], [place] [address] Social History Tobacco Use Types [...] you need to be checked. [facility] [phone] 8a-5p Same Day Endo [phone]-8p Otherwise contact [phone] and ask to speak to the force adjustment supervisor electronic gluing machine operator Follow up care is a shelton [...] Swann MD - 01/16/2014 9:49 AM EDT [facility] Operative Note Patient Name: Gregory Fatima : [id number] MR#: [id number] Case Date: 01/16/2014 Surgeon: Surgeon(s) and Role: * Nohemi Swann MD - Primary Preoperative diagnosis: 5 yr surv. Full procedure note is documented under the Procedure section of eDH. documented in this encounter Plan of Treatment Upcoming Encounters Date Type Specialty Care Team Description 03/26/2022 Office Visit Cardiology Vitaliy Nobles MD [facility] [address] CARLYLE [place] [address] (Wo rk) 05/28/2022 Appointment Cardiology Zulma Dolan MD [facility] [place] 0[address] (Wo rk) 05/28/2022 Laboratory Appointment Lab 05/28/2022 Office Visit Cardiology Zulma Dolan MD [facility] [place] [address] Liz Poole PA [facility] [place] [address] 06/10/2022 Office Visit Dermatology Laura Scherer MD [facility] ER DR TEJA GR-DERMAT [place], [place] 0[address] (Wo rk) documented as of [...] Surgical Pathology Report (01/16/2014 9:53 AM EDT) [facility] gist Method Time Signature Surgical CERNER Pathology ? [facility] Report ? Provider: ?? NOHEMI SWANN ?Pt. Name: ?? MALICKA RT, GREGORY E ? Acc #: ?[id number] ?Pt. MRN: ?[id number] ? Col Date: ?? 4 ? /Sex: [...] Organization Address City/State/[place] [address] [facility] Specimen to Pathology (surgical or derm) (01/16/2014 9:53 AM EDT) Specimen Anatomical Collection Method Collection Time Receive d Time (Source) Location / / Volume Laterality AP Specimen 01/16/2014 9:53 AM 4 9:53 EDT AM EDT Narrative CERNER MILLENNIUM - 01/16/2014 9:53 AM E DT Specimen requisition ordered. ??Separate Pathology report to follow Nohemi Swann MD PATHOLOGY/CYTOLOGY ORDERABLE S Performing Organization Address City/[facility]/[place] [address] CERNER MILLENNIUM Specimen to [...] MD PATHOLOGY/CYTOLOGY ORDERABLE S Performing Organization Address City/[facility] Code Phon e Number [address] CERNER MILLENNIUM COLONOSCOPY (01/16/2014 7:25 AM EDT) [facility] Method Time Signature COLONOSCOPY [facility] Endoscopy Patient Name: Gregory Fatima ? Procedure Date: 01/16/2014 7:25 AM ? Date of : 1945 ? Age: 68 ? Order #: [id number] ? Procedure: ? Colonoscopy Indications: ? High [...] Laterality 01/16/2014 7:25 AM EDT Angela Sotelo DISTRIBUTION CENTER SUPERVISOR GENERAL SURGICAL ORDERABLES Performing Organization Address City/State/ZIP [...] Routine documented in this encounter Care Teams Fell Cutter Relationship Specialty Start Date End Date Angela Sotelo APRN PCP - General 01/25/13 04/15/[address] [place] [place] [address] documented as of this encounter
--- OUTSIDE RECORDS SUMMARY | 2022-03-13 11:03 | XMS_ITS | Encounter Summary ---
:1945 Author Organization [facility] [place] [address] Care Team Providers Name Role Phone MiyaAngela STACIE Primary Care Provider Reason for Visit Reason Comments Post Op voiding trial Encounter Details Date Type Department Care Team Description 04/05/2013 Office Visit Urology at [facility] Darryl Egan, UTI ([facility] MD tract infection) [facility] (Primary Dx) [place] [address] UROLOGY DEPT [phone] [place], [place] [address] Social History Tobacco Use Types [...] MD [facility] DR TADEO [place], [place] [address] (Wo rk) 05/28/2022 Appointment Cardiology Zulma Dolan MD [facility] [place], [place] 0[address] (Wo rk) 05/28/2022 Laboratory Appointment Lab 05/28/2022 Office Visit Cardiology Zulma Dolan MD [place] [address] Liz Poole PA [facility] [place] [address] 06/10/2022 Office Visit Dermatology Laura Scherer MD [facility] DR TEJA GR-DERMAT OLOGY [place], [place] [address] (Wo rk) documented as of [...] [facility] Range Method Time Signature Urine Culture CERNER ? Patient Name: GREGORY HOANG ? Or[facility]: [facility] ? MR#: [id number] ?LOC: ??5B ? /Sex: ??1945 (68 years), ? Male ? PROCEDURE: Urine Culture ?SOURCE: U CC ? COLLECTED: 04/05/2013 11:48 ? STARTED: 04/05/2013 13:54 ? FINAL REPORT ? Final Report ? Verified:04/07/2013 11:39 ? Greater than 100,000 cfu/ml Citrobacter freundii comp nnacie ? PRELIMINARY REPORT ? Preliminary Report ? [...] S ? Patient: GREGORY HOANG ? MR#: [id number] ? FOOTNOTES ? (1) ? This organism [...] Organization Address City/State/[place] [address] HOSPITAL LABORATORY [facility] documented in this encounter Visit Diagnoses Diagnosis UTI (lower urinary tract infection) - Pr imary Urinary tract infection, site not specif ied documented in this encounter Care Teams Hooker Up Relationship Specialty Start Date End Date Angela Holliday APRN PCP - General 01/25/13 04/15/[address] [place] [address] documented as of this encounter
--- OUTSIDE RECORDS SUMMARY | 2022-03-13 11:03 | XMS_ITS | Encounter Summary ---
:1945 Author Organization [facility] [place] [address] Care Team Providers Name Role Phone Angela Holliday APRN Primary Care Provider Reason for Visit Reason Comments Skin Check Encounter Details Date Type Department Care Team Description 07/31/2013 Follow-Up Dermatology at [facility] eoplasm of unspecified nature of bone, soft tissue, and skin (Primary Dx); Abdelrahman HOOPER MD Seborrheic psoriasis- scalp and ingtergl uteal area; [address] [facility] Atypical nevus [place] [address] [facility] [place], [place] [address] (Wo rk) Social History Tobacco [...] MD [facility] DR CARLYLE [place], [place] [address] (Wo rk) 05/28/2022 Appointment Cardiology Zulma Dolan MD [facility] [address] [place] [address] (Wo rk) 05/28/2022 Laboratory Appointment Lab 05/28/2022 Office Visit Cardiology Zulma Dolan MD [facility] [place] [address] Liz Poole PA [facility] [place] [address] 06/10/2022 Office Visit Dermatology Laura Scherer MD [facility] DR TEJA GR-DERMAT [place], [place] 0[address] (Wo rk) Scheduled Orders Name [...] Component Value Ref Test Analysis Performed At [facility] gist Range Method Time Signature Surgical CERNER Pathology ? [facility] Report ? Provider: ?? RIGOBERTO GARCIA III Pt. Name: ?? GREGORY FATIMA ?A ? Acc #: ?[id number] ? Pt. ? Col Date: ?? 07/31/2013 [...] negative controls. ??These ? IHC studies provide [facility] pathologist with adjunctive diagnostic information. ? Antibody [...] 0.9 x 0.8 x 0.[address] ? [facility] ? Provider: ?? RIGOBERTO GARCIA III Pt. Name: ?? GREGORY FATIMA ?A ? Acc #: ?[id number] ? Pt. ? Col Date: ?? 07/31/2013 [...] Organization Address City/State/[place] [address] RAKESH VILLALOBOSENNIUM Specimen to [...] Organization Address City/State/[place] [address] [facility] documented in this encounter Visit Diagnoses Diagnosis Neoplasm of unspecified nature of bone, soft tissue, and skin - Primary Seborrheic psoriasis- scalp and ingtergl uteal area Other psoriasis Atypical nevus of abdominal wall Benign neoplasm of skin of trunk, except scrotum documented in this encounter Care Teams Tank Car Inspector Relationship Specialty Start Date End Date Angela Holliday APRN PCP - General 01/25/13 04/15/[address] [place] [address] documented as of this encounter
--- OUTSIDE RECORDS SUMMARY | 2022-03-13 11:03 | XMS_ITS | Encounter Summary ---
:1945 Author Organization [facility] [place] [address] Care Team Providers Name Role Phone MiyaAngela STACIE Primary Care Provider Reason for Visit Reason Comments Urinary Retention Encounter Details Date Type Department Care Team Description 05/16/2013 Follow-Up Urology at [facility] Blade Smith, Retention of urine [facility] (Primary Dx) [place] [address] UROLOGY DEPT [place] [id number] (Wo rk) Social History Tobacco Use Types [...] MD [facility] DR TADEO [place], [place] [address] (Wo rk) 05/28/2022 Appointment Cardiology Zulma Dolan MD [facility] [place], [place] 0[address] (Wo rk) 05/28/2022 Laboratory Appointment Lab 05/28/2022 Office Visit Cardiology Zulma Dolan MD [facility] [address] Liz Poole PA [facility] [place] [address] 06/10/2022 Office Visit Dermatology Laura Scherer MD [facility] DR TEJA GR-DERMAT [place], [place] 0[address] (Wo rk) documented as of this encounter Visit Diagnoses Diagnosis Retention of urine - Primary Retention of urine, unspecified documented in this encounter Care Teams Advertising Project Manager Relationship Specialty Start Date End Date Angela Holliday APRN PCP - General 01/25/13 04/15/[address] [place] [address] documented as of this encounter
--- OUTSIDE RECORDS SUMMARY | 2022-03-13 11:03 | XMS_ITS | Encounter Summary ---
:1945 Author Organization [place] [address] Care Team Providers Name Role Phone Angela Holliday APRN Primary Care Provider Encounter Details Date Type Department Care Team Description 04/30/2014 Orders Only Endocrinology at [facility] Albertina Palmer, Thyroid cancer [facility] Jorge Boyer MD (Primary Dx) [place] [address] [facility] [phone] CENTER ENDOCRINOLOGY DEPT [place], [place] [address] Social History Tobacco Use Types [...] MD [facility] CARDIOLOGY [place], [place] [address] (Wo rk) 05/28/2022 Appointment Cardiology Zulma Dolan MD [facility] [place], [place] [address] (Wo rk) 05/28/2022 Laboratory Appointment Lab 05/28/2022 Office Visit Cardiology Zulma Dolan [place] [facility] [place] [address] Liz Poole PA [facility] [place] [address] 06/10/2022 Office Visit Dermatology Laura Scherer MD [facility] DR TEJA GR-DERMAT [place], [place] [address] (Wo rk) documented as of this encounter Visit Diagnoses Diagnosis Thyroid cancer - Primary Malignant neoplasm of thyroid gland documented in this encounter Care Teams Window Trimmer Relationship Specialty Start Date End Date Angela Holliday APRN PCP - General 01/25/13 04/15/[address] [place] [place] [address] documented as of this encounter
--- OUTSIDE RECORDS SUMMARY | 2022-03-13 11:03 | XMS_ITS | Encounter Summary ---
:1945 Author Organization [facility] [place] [address] Care Team Providers Name Role Phone Lovely Vicente MD Primary Care Provider Reason for Visit Reason Comments Follow-up Encounter Details Date Type Department Care Team Description 06/03/2017 Office Visit Dermatology at Rig[facility]to Forman benign nevi; Abdelrahman HOOPER MD History of melanoma; [address] [facility] History of dysplastic nevus; [place] [address] Skin exam for malignant neoplasm [phone] [facility] [place], [place] [address] Social History Tobacco Use Types [...] Nobles MD [facility] DR TADEO [place], [place] [address] (Wo rk) 05/28/2022 Appointment Cardiology Zulma Dolan MD [facility] Dr [place], [place] [address] (Wo rk) 05/28/2022 Laboratory Appointment Lab 05/28/2022 Office Visit Cardiology Zulma Dolan MD [facility] [place] [address] Liz Poole PA [facility] [place] [address] 06/10/2022 Office Visit Dermatology Laura Scherer MD [facility] DR TEJA GR-DERMAT [place], [place] 0[address] (Wo rk) documented as [...] skin documented in this encounter Care Teams School Plant Consultant Relationship Specialty Start Date End Date Lovely Vicente MD PCP - General 04/16/[address] [facility] [address] [place] [address] documented as of this encounter
--- OUTSIDE RECORDS SUMMARY | 2022-03-13 11:03 | XMS_ITS | Encounter Summary ---
:1945 Author Organization [facility] [place] [address] Care Team Providers Name Role Phone MiyaLokeshAngela STACIE Primary Care Provider Encounter Details Date Type Department Care Team Description 04/04/2013 Orders Only General Surgery at [facility] thyroid [facility] MD Eliseo carcinoma (Primary Dx) [place] [address] GENERAL SURGERY [phone] [place], [place] [address] Social History Tobacco Use Types [...] [facility] ER DR CARLYLE [place], [place] [address] (Wo rk) 05/28/2022 Appointment Cardiology Zulma Dolan MD [facility] Dr [place] 0375 (Wo rk) 05/28/2022 Laboratory Appointment Lab 05/28/2022 Office Visit Cardiology Zulma Dolan MD [facility] [place] [address] Liz Poole PA [facility] [place] [address] 06/10/2022 Office Visit Dermatology Laura Scherer MD [facility] ER DR TEJA GR-DERMAT [place], [place] 0[address] (Wo rk) documented as of this encounter Visit Diagnoses Diagnosis Papillary thyroid carcinoma - Primary Malignant neoplasm of thyroid gland documented in this encounter Care Teams Spiral Weaver Relationship Specialty Start Date End Date Angela Holliday APRN PCP - General 01/25/13 04/15/[address] [place] [address] documented as of this encounter
--- OUTSIDE RECORDS SUMMARY | 2022-03-13 11:03 | XMS_ITS | Encounter Summary ---
:1945 Author Organization [facility] [address] Care Team Providers Name Role Phone Lovely Vicente MD Primary Care Provider Encounter Details Date Type Department Care Team Description 07/05/2017 Telephone Cardiology Kim Galindo MD [facility] [place] [address] CARDIOLOGY DEPT [phone] [place], [place] 0[address] (Wo rk) Social [...] 1:54pm Referring Provider: Ivania CROWELL) Patient Location: [facility] Presenting Symptoms per OSH: 72 [...] infarct and elevated troponin, transport patient to [facility] for cath this afternoon and arrhythmia monitoring. Kim Galnido MD Financial Services Agent documented in this encounter Plan of Treatment Upcoming Encounters Date Type Specialty Care Team Description 03/26/2022 Office Visit Cardiology Vitaliy Nobles MD [facility] CARDIOLOGY [place], [place] 0[address] (Wo rk) 05/28/2022 Appointment Cardiology Zulma Dolan MD [facility] [place], [place] [address] (Wo rk) 05/28/2022 Laboratory Appointment Lab 05/28/2022 Office Visit Cardiology Zulma Dolan MD [facility] [place] [address] Liz Poole PA [facility] [place] [address] 06/10/2022 Office Visit Dermatology Laura Scherer MD [facility] DR TEJA GR-DERMAT [place], [place] [address] (Wo rk) documented as of this encounter Visit Diagnoses Not on filedocumented in this encounter Care Teams Production Control Specialist Relationship Specialty Start Date End Date Lovely Vicente MD PCP - General 04/16/[address] [place] [address] documented as of this encounter
--- OUTSIDE RECORDS SUMMARY | 2022-03-13 11:03 | XMS_ITS | Encounter Summary ---
:1945 Author Organization [facility] [place] [address] Care Team Providers Name Role Phone MiyaLokeshAngela STACIE Primary Care Provider Encounter Details Date Type Department Care Team Description 01/16/2014 Hospital Encounter Gastroenterology at [facility] Nohemi Swann, [facility] [place] [address] [facility] [phone] [facility] [place], [place] [address] Social History Tobacco Use Types [...] you need to be checked. [facility] [phone] 8a-5p Same Day Endo [phone] 7a-8p Otherwise contact [phone] and ask to speak to the pipe fitter welding auto adjudication specialist Follow up care is a shelton part [...] Swann MD - 01/16/2014 9:49 AM EDT [facility] Operative Note Patient Name: Gregory Fatima : [id number] MR#: [id number] Case Date: 01/16/2014 Surgeon: Surgeon(s) and Role: * Nohemi Swann MD - Primary Preoperative diagnosis: 5 yr surv. Full procedure note is documented under the Procedure section of eDH. documented in this encounter Plan of Treatment Upcoming Encounters Date Type Specialty Care Team Description 03/26/2022 Office Visit Cardiology Viatliy Nobles MD [facility] DR CARLYLE [place], [place] 0[address] (Wo rk) 05/28/2022 Appointment Cardiology Zulma Dolan MD [facility] [address] [place] [address] (Wo rk) 05/28/2022 Laboratory Appointment Lab 05/28/2022 Office Visit Zulma Garrison MD [facility] [place] [address] Liz Poole PA [facility] [place] [address] 06/10/2022 Office Visit Dermatology Laura Scherer MD [facility] ER DR TEJA GR-DERMAT [place], [place] [address] (Wo rk) documented as [...] Surgical Pathology Report (01/16/2014 9:53 AM EDT) [facility] gist Method Time Signature Surgical CERNER Pathology ? [facility] Report ? Provider: ?? NOHEMI SWANN ?Pt. Name: ?? MALICKEliseo RT, GREGORY E ? Acc #: ?[id number] ?Pt. MRN: ?[id number] ? Col Date: ?? 4 ? /Sex: [...] Organization Address City/State/[place] [address] [facility] Specimen to Pathology (surgical or derm) (01/16/2014 9:53 AM EDT) Specimen Anatomical Collection Method Collection Time Receive d Time (Source) Location / / Volume Laterality AP Specimen 01/16/2014 9:53 AM 4 9:53 EDT AM EDT Narrative CERNER MILLENNIUM - 01/16/2014 9:53 AM E DT Specimen requisition ordered. ??Separate Pathology report to follow Nohemi Swann MD PATHOLOGY/CYTOLOGY ORDERABLE S Performing Organization Address [facility]/[place] [address] CERNER MILLENNIUM Specimen to [...] PATHOLOGY/CYTOLOGY ORDERABLE S Performing Organization Address City/[facility] [place] [address] CERNER MILLENNIUM COLONOSCOPY (01/16/2014 7:25 AM EDT) [facility] Method Time Signature COLONOSCOPY [facility] Endoscopy Patient Name: Gregory Fatima ? Procedure Date: 01/16/2014 7:25 AM ? Date of : 1945 ? Age: 68 ? Order #: [id number] ? Procedure: ? Colonoscopy Indications: ? High [...] Return to primary care phys ician. ? Nohmei Swann MD 01/16/2014 10:04 AM This report has been signed electronically. Number of Addenda: 0 Note Initiated On: 01/16/2014 7:25 AM Specimen (Source) Anatomical Collection Method Collection Time Re ceived Time Location / / Volume Laterality 01/16/2014 7:25 AM EDT Angela Sotelo TERRITORY SERVICE REPRESENTATIVE GENERAL SURGICAL ORDERABLES Performing Organization Address City/State/ZIP [...] Routine documented in this encounter Care Teams Window Cutter Relationship Specialty Start Date End Date Angela Sotelo APRN PCP - General 01/25/13 04/15/[address] [place] [address] documented as of this encounter
--- OUTSIDE RECORDS SUMMARY | 2022-03-13 11:03 | XMS_ITS | Encounter Summary ---
:1945 Author Organization [facility] [place] [address] Care Team Providers Name Role Phone Lovely Vicente MD Primary Care Provider Reason for Visit Reason Comments Skin Check Encounter Details Date Type Department Care Team Description 06/05/2016 Office Visit Dermatology at [facility] istory of melanoma; Abdelrahman HOOPER MD Seborrheic keratosis; [address] [facility] [place] (actinic keratosis); [place] [address] Multiple nevi; [phone] [facility] Scar [address]-DERMATOLGY [place], [place] [address] Social History Tobacco Use Types [...] Diagnostic, Drum (ACCU-CHEK COMPACT TEST) Strip by [facility].(Non- Drug; Combo Route) route 2 times daily. [...] Nobles MD [facility] CARDIOLOGY [place], [place] [address] (Wo rk) 05/28/2022 Appointment Cardiology Zulma Dolan MD [facility] [place], [place] [address] (Wo rk) 05/28/2022 Laboratory Appointment Lab 05/28/2022 Office Visit Cardiology Zulma Dolan MD [facility] [place] [address] [facility] [place] [address] 06/10/2022 Office Visit Dermatology Laura Scherer MD [facility] DR TEJA GR-DERMAT [place], [place] [address] (Wo rk) documented as of this encounter Visit Diagnoses Diagnosis History of melanoma Personal history of malignant melanoma o f skin Seborrheic keratosis Other seborrheic keratosis [place] (actinic keratosis) Actinic keratosis Multiple nevi Benign neoplasm of skin, site unspecifie d Scar Scar condition and fibrosis of skin documented in this encounter Care Teams Manager Of Enterprise Relationship Specialty Start Date End Date Lovely Vicente MD PCP - General 04/16/[address] [place] [address] documented as of this encounter
--- OUTSIDE RECORDS SUMMARY | 2022-03-13 11:03 | XMS_ITS | Encounter Summary ---
:1945 Author Organization [facility] [place] [address] Care Team Providers Name Role Phone Miya Angela STACIE Primary Care Provider Encounter Details Date Type Department Care Team Description 04/24/2013 Telephone Urology at [facility] Zhen Bowamn MD [facility] [place] [address] UROLOGY DEPT [phone] [place], [place] [address] (Wo rk) Social History Tobacco [...] [facility] DR TADEO [place], [place] [address] (Wo rk) 05/28/2022 Appointment Cardiology Zulma Dolan MD [facility] Dr [place], [place] [address] (Wo rk) 05/28/2022 Laboratory Appointment Lab 05/28/2022 Office Visit Cardiology Zulma Dolan MD [facility] [place] [address] Liz Poole PA [facility] [place] [address] 06/10/2022 Office Visit Dermatology Laura Scherer MD [facility] DR TEJA GR-DERMAT [place], [place] [address] (Wo rk) documented as of this encounter Visit Diagnoses Not on filedocumented in this encounter Care Teams Iron Launder Operator Relationship Specialty Start Date End Date Angela Holliday APRN PCP - General 01/25/13 04/15/[address] [place] [address] documented as of this encounter
--- OUTSIDE RECORDS SUMMARY | 2022-03-13 11:03 | XMS_ITS | Encounter Summary ---
:1945 Author Organization [facility] [place] [address] Care Team Providers Name Role Phone Lovely Vicente MD Primary Care Provider Reason for Visit Reason Comments Skin Lesion Encounter Details Date Type Department Care Team Description 11/24/2016 [facility] uncertain behavior of skin; Road IIIMD Pigmented skin lesion of uncertain natur e; [address] [facility] [place] of [place] [address] [facility] SIMÓN-DERMATOLGY [place], [place] [address] Social History Tobacco Use Types [...] or concerns, please call the office at [phone]. If it is after 5PM, or a holiday or weekend, please call [phone] and ask for the Care Associate on-call. documented in this encounter Progress [...] 71 y.o. year old male.Established patient of [employer]. Last seen 06/05/16. Here today for new [...] Nobles MD [facility] DR CARLYLE [place], [place] [address] (Wo lissa) 05/28/2022 Appointment Cardiology Zulma Dolan MD [facility] [address] [place] [address] (Wo lissa) 05/28/2022 Laboratory Appointment Lab 05/28/2022 Office Visit Cardiology Zulma Dolan [place] [address] Liz Poole PA [facility] [place] [address] 06/10/2022 Office Visit Dermatology Laura Scherer MD [facility] ER DR LEZ[address] RD-DERMAT [place], [place] 0[address] (Wo rk) documented [...] Test Analysis Performed At [facility] gist Range Method Time Signature Surgical [id number] ?Location: [facility] Report The signing pathologist has (i) examined [...] MD PATHOLOGY/CYTOLOGY ORDERABLE S Performing Organization Address City/[facility]/[place] [address] Specimen to Pathology (NON-OR) (11/24/2016 8:28 AM EDT) Specimen Anatomical Collection Method Collection Time Receive d Time (Source) Location / / Volume Laterality AP Specimen 11/24/2016 8:28 AM 7 9:29 EDT AM EDT Narrative [facility] - 11/24/2016 9:29 AM EDT Specimen requisition ordered. ??Separate Pathology report to follow Resulting Agency Comment Spec In Lab Rigoberto Garcia III, MD PATHOLOGY/CYTOLOGY ORDERABLE S Performing Organization Address City/[facility] [place] [address] documented in this encounter Visit Diagnoses Diagnosis Neoplasm of uncertain behavior of skin Pigmented skin lesion of uncertain natur e History of melanoma Personal history of malignant melanoma o f skin documented in this encounter Care Teams Irrigating Pump Operator Relationship Specialty Start Date End Date Lovely Vicente MD PCP - General 04/16/[address] [place] [address] documented as of this encounter
--- OUTSIDE RECORDS SUMMARY | 2022-03-13 11:03 | XMS_ITS | Encounter Summary ---
:1945 Author Organization [facility] [place] [address] Care Team Providers Name Role Phone Lovely Vicente MD Primary Care Provider Reason for Visit Reason Comments Skin Check Encounter Details Date Type Department Care Team Description 04/16/2015 Follow-Up Dermatology at [facility] x of melanoma of skin; Abdelrahman HOOPER MD Multiple benign nevi [address] [place] [address] [facility] RANDALLIA-DERMATOLGY [place], [place] 0[address] (Wo rk) Social [...] Diagnostic, Drum (ACCU-CHEK COMPACT TEST) Strip by [place].(Non- Drug; Combo Route) route 2 times daily. [...] encounter. Rigoberto Garcia MD Section of Dermatology [facility] documented in this encounter Plan of Treatment Upcoming Encounters Date Type Specialty Care Team Description 03/26/2022 Office Visit Cardiology Vitaliy Nobles MD [facility] DR TADEO [place], [place] [address] (Wo rk) 05/28/2022 Appointment Cardiology Zulma Dolan MD [facility] [place], [place] [address] (Wo rk) 05/28/2022 Laboratory Appointment Lab 05/28/2022 Office Visit Cardiology Zulma Dolan MD [facility] [place] [address] Liz Poole PA [facility] [place] [address] 06/10/2022 Office Visit Dermatology Laura Scherer MD [facility] DR LEZ[address] RD-DERMAT [place], [place] [address] (Wo rk) documented as of this encounter Visit Diagnoses Diagnosis Hx of melanoma of skin Personal history of malignant melanoma o f skin Multiple benign nevi Benign neoplasm of skin, site unspecifie d documented in this encounter Care Teams Test Puller Relationship Specialty Start Date End Date Lovely Vicente MD PCP - General 04/16/[address] [place] [address] documented as of this encounter
--- OUTSIDE RECORDS SUMMARY | 2022-03-13 11:03 | XMS_ITS | Encounter Summary ---
:1945 Author Organization [facility] [place] [address] Care Team Providers Name Role Phone Lovely Vicente MD Primary Care Provider Encounter Details Date Type Department Care Team Description 07/10/2016 Telephone Dermatology at [facility] Rigoberto White III, [address] [place] [address] [facility] [phone] [facility] MARIE-DERMAT [place], [place] [address] (Wo rk) Social History Tobacco [...] MD [facility] DR TADEO [place], [place] [address] (Wo rk) 05/28/2022 Appointment Cardiology Zulma Dolan MD [facility] [place], [place] 0[address] (Wo rk) 05/28/2022 Laboratory Appointment Lab 05/28/2022 Office Visit Cardiology Zulma Dolan MD [facility] [place] [address] Liz Poole PA [facility] [place] [address] 06/10/2022 Office Visit Dermatology Laura Scherer MD [facility] DR [address] RD-DERMAT [place], [place] [address] (Wo rk) documented as of this encounter Visit Diagnoses Not on filedocumented in this encounter Care Teams Circulation Representative Relationship Specialty Start Date End Date Lovely Vicente MD PCP - General 04/16/[address] [place] [address] documented as of this encounter
--- OUTSIDE RECORDS SUMMARY | 2022-03-13 11:03 | XMS_ITS | Encounter Summary ---
:1945 Author Organization [facility] [place] [address] Care Team Providers Name Role Phone MiyaAngela STACIE Primary Care Provider Encounter Details Date Type Department Care Team Description 04/26/2014 Office Visit Endocrinology at [facility] Albertina Palmer, Papillary thyroid [facility] MD [place] [address] CENTER [phone] ENDOCRINOLOGY DEPT [place] [address] Social History Tobacco Use Types Packs/Day Years [...] on US. Rosalind Palmer Endocrine Staff Physician [facility] Rosalind Palmer MD [...] one yr Rosalind Palmer Endocrine Staff Physician [facility] documented in this encounter Plan of Treatment Upcoming Encounters Date Type Specialty Care Team Description 03/26/2022 Office Visit Cardiology Vitaliy Nobles MD [facility] DR CAR[place]LE [place], [place] [address] (Wo rk) 05/28/2022 Appointment Cardiology Zulma Dolan MD [facility] Dr [place], [place] [address] (Wo rk) 05/28/2022 Laboratory Appointment Lab 05/28/2022 Office Visit Cardiology Zulma Dolan MD [facility] [place] [address] Liz Poole PA [facility] Dr Thomas [place] [address] 06/10/2022 Office Visit Dermatology Laura Scherer MD [facility] DR TEJA GR-DERMAT [place], [place] [address] (Wo rk) documented as of [...] athologist Signature Thyroglobulin <0.4 <=54.9 CERNER ng/mL [facility] Comment: Interpret with caution. Tg levels [...] than those obtained with T4 withdrawal protocol (Wilkinson BR et al. J Clin Endo Metab 1999;84:2982-8893). Assay performed using the DPC Immulite T [...] Palmer MD CHEMISTRY ORDERABLES Performing Organization Address City/[facility]/[place] [address] CERNER MILLENNIUM (ABNORMAL) TSH (04/26/2014 9:07 AM EDT) P athologist Signature TSH 4.46 (H) 0.27 - 4.20 CERNER mcIU/mL MILLENNIUM Specimen Anatomical Collection Method Collection Time Receive d Time (Source) Location / / Volume Laterality Blood specimen 04/26/2014 9:07 AM 014 9:12 (specimen) EDT AM EDT Resulting Agency Comment Spec In Lab Rosalind Palmer MD CHEMISTRY ORDERABLES Performing Organization Address City/[facility]/[place] [address] CERNER MILLENNIUM documented in this encounter Visit Diagnoses Diagnosis Papillary thyroid carcinoma Malignant neoplasm of thyroid gland documented in this encounter Care Teams Mushroom Sorter Grader Relationship Specialty Start Date End Date Angela Holliday APRN PCP - General 01/25/13 04/15/[address] [place] [address] documented as of this encounter
--- OUTSIDE RECORDS SUMMARY | 2022-03-13 11:04 | XMS_ITS | Encounter Summary ---
:1945 Author Organization [facility] [place] [address] Care Team Providers Name Role Phone NeilSom conner STACIE Primary Care Provider Reason for Visit Reason Comments Establish Care OBST GOITER Encounter Details Date Type Department Care Team Description 01/25/2013 Office Visit General Surgery at [facility]anny [facility]cknight er colloid, toxic, [facility] MD Eliseo nodular (Primary Dx) [facility] [place], [place] GENERAL SURGERY [id number] [place], [place] [id number] [phone] Social History Tobacco Use Types Packs/Day Years [...] the thyroid gland were obtained using a SonoSiTouchOfModern MicroMaxx and an HFL38/13-6 broadband linear array [...] on physical exam. ROS: No H/O asthma, AR, stroke, pulmonary embolus or phlebitis. Comprehensive review [...] agrees to proceed. Will sign in through [facility]. Consent is signed. Send copy to Dr. SOM HOLLIDAY APRN and Elijah Elias MD. documented in this encounter Plan of Treatment Upcoming Encounters Date Type Specialty Care Team Description 03/26/2022 Office Visit Cardiology Vitaliy Nobles MD [facility] DR TADEO [place], [place] [address] (Wo rk) 05/28/2022 Appointment Cardiology Zulma Dolan MD [facility] [place], [place] [address] (Wo rk) 05/28/2022 Laboratory Appointment Lab 05/28/2022 Office Visit Cardiology Zulma Dolan MD [facility] [place] [address] Liz Poole PA [facility] [place] [address] 06/10/2022 Office Visit Dermatology Laura Scherer MD [facility] DR TEJA GR-DERMAT [place], [place] [...] 406 ms MUSE SYSTEM (Bezet) Calculated P [place] 52 degrees MUSE SYSTEM Calculated R [place] 0 degrees MUSE SYSTEM Calculated T [place] 40 degrees MUSE SYSTEM INTERPRETATION Normal sinus [...] storm documented in this encounter Care Teams Rate Analyst Relationship Specialty Start Date End Date Som Holliday APRN PCP - General 01/25/13 04/15/[address] [place] [address] documented as of this encounter
--- OUTSIDE RECORDS SUMMARY | 2022-03-13 11:04 | XMS_ITS | Encounter Summary ---
:1945 Author Organization [facility] [place] [address] Care Team Providers Name Role Phone Unknown Primary Care Provider Unavailable Reason for Visit Reason Comments Other Encounter Details Date Type Department Care Team Description 10/05/2012 Telephone Dermatology at [facility] Rigoberto Garcia III, [address] [place] [address] [facility] [phone] TEJA MARIE-DERMAT [place] [phone] (Wo rk) Social History Tobacco Use Types [...] MD [facility] DR TADEO [place], [place] [address] (Wo rk) 05/28/2022 Appointment Cardiology Zulma Dolan MD [facility] [address] [place], [place] [address] (Wo rk) 05/28/2022 Laboratory Appointment Lab 05/28/2022 Office Visit Cardiology Zulma Dolan MD [facility] [place] [address] Liz Poole PA [facility] [place] [address] 06/10/2022 Office Visit Dermatology Laura Scherer MD [facility] DR [address]-DERMAT [place], [place] [address] (Wo rk) documented as of this encounter Visit Diagnoses Not on filedocumented in this encounter Care Teams Crt Relationship Specialty Start Date End Date Unknown PCP - General 10/04/12 01/24/13 None documented as of this encounter
--- OUTSIDE RECORDS SUMMARY | 2022-03-13 11:04 | XMS_ITS | Encounter Summary ---
:1945 Author Organization [facility] [place] [address] Care Team Providers Name Role Phone Adi Costello MD Primary Care Provider Reason for Visit Reason Comments Annual Exam ckeck his groin and melanoma follow-up Encounter Details Date Type Department Care Team Description 11/21/2010 Follow-Up Dermatology Arik Tipton Melanoma (Primary Dx) [facility] MD [place] [phone] DERMATOLOGY DEPT . 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 His only complaints are leg cramps, [...] changes: Arik Tipton MD Section of Dermatology [facility] documented in this encounter Plan of Treatment Upcoming Encounters Date Type Specialty Care Team Description 03/26/2022 Office Visit Cardiology Vitaliy Nobles MD [facility] [address] TADE[address] [place], [place] [address] (Wo rk) 05/28/2022 Appointment Cardiology Zulma Dolan MD [facility] [place], [place] [address] (Wo rk) 05/28/2022 Laboratory Appointment Lab 05/28/2022 Office Visit Cardiology Zulma Dolan MD [facility] [place] [address] [facility] [place] [address] 06/10/2022 Office Visit Dermatology Laura Scherer MD [facility] DR TEJA GR-DERMAT [place], [place] [address] (Wo rk) documented as of this encounter Visit Diagnoses Diagnosis Melanoma - Primary Melanoma of skin, site unspecified documented in this encounter Care Teams Engineering Scientist Relationship Specialty Start Date End Date Adi Costello MD PCP - General 06/17/10 09/21/11 [address] [place] [address] documented as of this encounter
--- OUTSIDE RECORDS SUMMARY | 2022-03-13 11:04 | XMS_ITS | Encounter Summary ---
:1945 Author Organization [place] [address] Care Team Providers Name Role Phone Angela Holliday APRN Primary Care Provider Reason for Visit Reason Onset Date Comments Other 03/30/2013 blood in catheter ba g Encounter Details Date Type Department Care Team Description 03/30/2013 Telephone General Surgery at [facility] Janneth Sharma, Other (blood in [facility] RN catheter bag) [place] [address] Social History Tobacco Use Types Packs/Day [...] Nobles MD [facility] DR TADEO [place], [place] [address] (Wo rk) 05/28/2022 Appointment Cardiology Zulma Dolan MD [facility] [place], [place] [address] (Wo rk) 05/28/2022 Laboratory Appointment Lab 05/28/2022 Office Visit Cardiology Zulma Dolan MD [facility] [place] [address] Liz Poole PA [facility] [place] [address] 06/10/2022 Office Visit Dermatology Laura Scherer MD [facility] DR TEJA GR-DERMAT [place], [place] 0[address] (Wo rk) documented as of this encounter Visit Diagnoses Not on filedocumented in this encounter Care Teams Professor Of Physics Relationship Specialty Start Date End Date Angela Holliday APRN PCP - General 01/25/13 04/15/[address] [place] [address] documented as of this encounter
--- OUTSIDE RECORDS SUMMARY | 2022-03-13 11:04 | XMS_ITS | Encounter Summary ---
:1945 Author Organization [facility] [address] Care Team Providers Name Role Phone Angela Holliday APRN Primary Care Provider Encounter Details Date Type Department Care Team Description 01/25/2013 Clinical [place] [address] Social History Tobacco Use Types Packs/Day [...] MD [facility] [address] TADE[address] [place], [place] [address] (Wo rk) 05/28/2022 Appointment Cardiology Zulma Dolan MD [facility] [place], [place] [address] (Wo rk) 05/28/2022 Laboratory Appointment Lab 05/28/2022 Office Visit Cardiology Zulma Dolan MD [facility] [place] [address] Liz Poole PA [facility] [place] [address] 06/10/2022 Office Visit Dermatology Laura Scherer MD [facility] DR TEJA GR[address]DERMAT [place], [place] [address] (Wo rk) documented as of this encounter Visit Diagnoses Not on filedocumented in this encounter Care Teams Manager Sterile Relationship Specialty Start Date End Date Angela Holliday APRN PCP - General 01/25/13 04/15/[address] [place] [address] documented as of this encounter
--- OUTSIDE RECORDS SUMMARY | 2022-03-13 11:04 | XMS_ITS | Encounter Summary ---
:1945 Author Organization [facility] [address] Care Team Providers Name Role Phone Angela Holliday APRN Primary Care Provider Encounter Details Date Type Department Care Team Description 03/30/2013 Telephone General Surgery at [facility] Cliff Nevarez, [place] [address] Social History Tobacco Use Types Packs/Day [...] Nobles MD [facility] [address] TADE[address] [place], [place] [address] (Wo rk) 05/28/2022 Appointment Cardiology Zulma Dolan MD [facility] [address] [place], [place] [address] (Wo rk) 05/28/2022 Laboratory Appointment Lab 05/28/2022 Office Visit Cardiology Zulma Dolan MD [facility] [place] [address] Liz Poole PA [facility] [place] [address] 06/10/2022 Office Visit Dermatology Laura Scherer MD [facility] [address] TEJA GR[address]DERMAT [place], [place] [address] (Wo rk) documented as of this encounter Visit Diagnoses Not on filedocumented in this encounter Care Teams Clinical Care Manager Relationship Specialty Start Date End Date Angela Holliday APRN PCP - General 01/25/13 04/15/[address] [place] [address] documented as of this encounter
--- OUTSIDE RECORDS SUMMARY | 2022-03-13 11:04 | XMS_ITS | Encounter Summary ---
:1945 Author Organization [facility] Address [facility] [place] [address] Care Team Providers Name Role Phone Unknown Primary Care Provider Unavailable Reason for Visit Reason Comments Skin Check Encounter Details Date Type Department Care Team Description 10/04/2012 Follow-Up Dermatology at Rigoberto Forman soriasis (Primary Dx); Abdelrahman HOOPER MD Neoplasm of unspecified nature of bone, soft tissue, and skin; [address] [facility] Skin lesion of chest wall; [place] [address] Seborrheic psoriasis- scalp and ingtergl uteal area [phone] [facility] [place], [place] [address] (Wo rk) Social History [...] changes: Rigoberto Garcia MD Section of Dermatology [facility] documented in this encounter Plan of Treatment Upcoming Encounters Date Type Specialty Care Team Description 03/26/2022 Office Visit Cardiology Vitaliy Nobles MD [facility] [address] TADE[address] [place], [place] [address] (Wo rk) 05/28/2022 Appointment Cardiology Zulma Dolan MD [facility] [place], [place] [address] (Wo rk) 05/28/2022 Laboratory Appointment Lab 05/28/2022 Office Visit Cardiology Zulma Dolan MD [facility] [place] [address] Liz Poole PA [facility] [place] [address] 06/10/2022 Office Visit Dermatology Laura Scherer MD [facility] DR TEJA GR-DERMAT [place], [place] [address] (Wo rk) documented as [...] Ref Test Analysis Performed At [facility] Range Method Time Signature Surgical CERNER Pathology ? [facility] Report ? Provider: ?? DEION III, RIGOBERTO Pt. Name: ?? DON HOANG ?A ? Acc #: ?[id number] ? Pt. ? Col Date: ?? 3 [...] Address City/Va Hospital/ZIP Code Phon e Number [address] [facility] Specimen to Pathology (NON-OR) (10/04/2012 9:55 AM EDT) Specimen Anatomical Collection Method Collection Time Receive d Time (Source) Location / / Volume Laterality AP Specimen 10/04/2012 9:55 AM 201 3 9:56 EDT AM EDT N[facility]ative [facility] - 10/04/2012 9:56 AM E DT Specimen requisition ordered. ??Separate Pathology report to follow Rigoberto Garcia III, MD PATHOLOGY/CYTOLOGY ORDERABLE S Performing Organization Address City/Va Hospital/ZIP [facility] [place] [address] [facility] documented in this encounter Visit Diagnoses Diagnosis Psoriasis - Primary Other psoriasis Neoplasm of unspecified nature of bone, soft tissue, and skin Skin lesion of chest wall Unspecified disorder of skin and subcuta neous tissue Seborrheic psoriasis- scalp and ingtergl uteal area Other psoriasis documented in this encounter Care Teams Data Management Specialist Relationship Specialty Start Date End Date Unknown PCP - General 10/04/12 01/24/13 None documented as of this encounter
--- OUTSIDE RECORDS SUMMARY | 2022-03-13 11:04 | XMS_ITS | Encounter Summary ---
:1945 Author Organization [facility] [place] [address] Care Team Providers Name Role Phone MiyaAngela STACIE Primary Care Provider Reason for Visit Reason Onset Date Comments Advice Only 03/31/2013 Encounter Details Date Type Department Care Team Description 03/31/2013 Telephone Urology at [facility] Daniele Trejo III, MD Advice Only One [facility] [address] [place] [phone] (Wo rk) Social History Tobacco Use Types [...] called pt at the request of Dr. Mckngiht. Pt instructed to increase fluid intale and contact us should the catheter become plugged with clot. He is being scheduled to see urology. Next week. documented in this encounter Plan of Treatment Upcoming Encounters Date Type Specialty Care Team Description 03/26/2022 Office Visit Cardiology Vitaliy Nobles MD [facility] CARDIOLOGY [place], [place] [address] (Wo rk) 05/28/2022 Appointment Cardiology Zulma Dolan MD [facility] [place], [place] [address] (Wo rk) 05/28/2022 Laboratory Appointment Lab 05/28/2022 Office Visit Cardiology Zulma Dolan MD [facility] [place] [address] [facility] [place] [address] 06/10/2022 Office Visit Dermatology Laura Scherer MD [facility] DR TEJA GR-DERMAT [place], [place] [address] (Wo rk) documented as of this encounter Visit Diagnoses Not on filedocumented in this encounter Care Teams Distance Education Faculty Liaison Relationship Specialty Start Date End Date Angela Holliday APRN PCP - General 01/25/13 04/15/[address] [place] [address] documented as of this encounter
--- OUTSIDE RECORDS SUMMARY | 2022-03-13 11:04 | XMS_ITS | Encounter Summary ---
:1945 Author Organization [facility] [place] [address] Care Team Providers Name Role Phone Brody Berrios MD Primary Care Provider Reason for Visit Reason Comments Annual Exam Encounter Details Date Type Department Care Team Description 09/22/2011 Follow-Up Dermatology Arik Tipton Psoriasis (Primary Dx); [facility] MD Jorge Personal history of other malignant neop lasm of skin Drive [place] [phone] DERMATOLOGY DEPT . 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 His only complaints tail bone and scalp [...] changes: Arik Tipton MD Section of Dermatology [facility] documented in this encounter Plan of Treatment Upcoming Encounters Date Type Specialty Care Team Description 03/26/2022 Office Visit Cardiology Vitaliy Nobles MD [facility] CARDIOLOGY [place], [place] [address] (Wo rk) 05/28/2022 Appointment Cardiology Zulma Dolan MD [facility] [address] [place], [place] [address] (Wo rk) 05/28/2022 Laboratory Appointment Lab 05/28/2022 Office Visit Cardiology Zulma Dolan MD [facility] [place] [address] Liz Poole PA [facility] [place] [address] 06/10/2022 Office Visit Dermatology Laura Scherer MD [facility] DR TEJA GR-DERMAT [place], [place] [address] (Wo rk) documented as of this encounter Visit Diagnoses Diagnosis Psoriasis - Primary Other psoriasis Personal history of other malignant neop lasm of skin documented in this encounter Care Teams Managed Care Liaison Relationship Specialty Start Date End Date Brody Berrios MD PCP - General 09/22/11 10/03/[address] [place] [address] documented as of this encounter
--- OUTSIDE RECORDS SUMMARY | 2022-03-13 11:04 | XMS_ITS | Encounter Summary ---
:1945 [place] [address] Care Team Providers Name Role Phone Holley Hollidayica STACIE Primary Care Provider Encounter Details Date Type Department Care Team Description 03/28/2013 - [facility] ([facility] 03/29/2013 Barbara Gomes MD Dx) [facility] [address] [phone] Social History Tobacco Use Types Packs/Day Years [...] please call the General Surgery nurse at [phone], since this may mean that you need morecalcium. Follow-up Appointment: Will be scheduled with Dr. Mcknight in 6 weeks Date and time as well as any required labs will be mailed to you Please call [phone] to confirm date and time of your [...] by calcium supplementation. Phone number for questions: [phone] before 5 PM weekdays [phone] after 5 PM and on weekends/holidays Please follow up with Urology as per their recommendations for Bob removal AttachmentsThe following attachments cannot be sent through Care Everywhere. THYROIDECTOMY: WHAT TO EXPECT AT HOME (SLOVENIAN)URINARY CATHETER CARE: AFTER YOUR VISIT (SLOVENIAN)documented in this encounter Medications at Time of [...] is a 68 y.o. male presents to [facility] today for total thyroidectomy. See [...] Operative Note Patient Name: Gregory Fatima : [id number] MR#: [id number] Case Date: 03/28/2013 Surgeon: Surgeon(s) and Role: [...] patient was extubated and taken to the [facility] in stable condition. At the [...] Operative Note Patient Name: Gregory Fatima : [id number] MR#: [id number] Case Date: 03/28/2013 Surgeon: Surgeon(s) and Role: [...] Nobles MD [facility] [address] [place], [place] [address] (Wo rk) 05/28/2022 Appointment Cardiology Zulma Dolan MD [facility] [address] [place] [address] (Wo rk) 05/28/2022 Laboratory Appointment Lab 05/28/2022 Office Visit Cardiology Zulma Dolan MD [facility] [place] [address] Liz Poole PA [facility] [place] [address] 06/10/2022 Office Visit Dermatology Laura Scherer MD [facility] ER DR [address] [place], [place] [address] (Wo rk) documented [...] 332 (H) 60 - 199 CERNER mg/dL [facility] Comment: Supplemental ranges: <110 mg/dL before meals <200 mg/dL all other times of the day Specimen Anatomical Collection Method Collection Time Receive d Time (Source) Location / / Volume Laterality Blood specimen 03/29/2013 8:08 AM 013 8:08 (specimen) EDT AM EDT Mesha Mcknight MD POINT OF CARE TEST ORDERABLE S Performing Organization Address City/State/[place] [address] CERNER MILLENNIUM (ABNORMAL) POCT Glucose (03/29/2013 4:04 AM EDT) athologist Signature POC Glucose 247 (H) 60 - 199 CERNER mg/dL [facility] Comment: Supplemental ranges: <110 mg/dL before meals <200 mg/dL all other times of the day Specimen Anatomical Collection Method Collection Time Receive d Time (Source) Location / / Volume Laterality Blood specimen 03/29/2013 4:04 AM 013 4:04 (specimen) EDT AM EDT Mesha Mcknight MD POINT OF CARE TEST ORDERABLE S Performing Organization Address City/State/ZIP Code Phon e Number [address] CERNER MILLENNIUM (ABNORMAL) POCT [...] ORDERABLE S Performing Organization Address City/[facility]/ZIP Code Phon e Number [address] CERNER MILLENNIUM (ABNORMAL) POCT [...] ORDERABLE S Performing Organization Address City/[facility]/ZIP Code Phon e Number [address] CERNER MILLENNIUM (ABNORMAL) POCT [...] Organization Address City/State/Z[place] [address] CERNER MILLENNIUM (ABNORMAL) POCT [...] ORDERABLE S Performing Organization Address City/[facility]/ZIP Code Phon e Number [address] CERNER MILLENNIUM (ABNORMAL) POCT [...] ORDERABLE S Performing Organization Address City/[facility]/ZIP Code Phon e Number [address] CERNER MILLENNIUM (ABNORMAL) POCT Glucose (03/28/2013 2:49 PM EDT) P athologist Signature POC Glucose 319 (H) 60 - 199 CERNER mg/dL [facility] Comment: Supplemental ranges: <110 mg/dL before meals <200 mg/dL all other times of the day Specimen Anatomical Collection Method Collection Time Receive d Time (Source) Location / / Volume Laterality Blood specimen 03/28/2013 2:49 PM 013 2:49 (specimen) EDT PM EDT Mesha Mcknight MD POINT OF CARE TEST ORDERABLE S Performing Organization Address City/[facility]/ZIP Code Phon e Number [address] [facility] Specimen to Pathology (surgical or derm) (03/28/2013 12:14 PM EDT) Specimen Anatomical Collection Method Collection Time Receive d Time (Source) Location / / Volume Laterality AP Specimen 03/28/2013 12:14 03/28/2013 PM EDT 12:14 PM EDT Narrative C[facility]ER [facility] - 03/28/2013 12:14 PM EDT Specimen requisition ordered. ??Separate Pathology report to follow Mesha Mcknight MD PATHOLOGY/CYTOLOGY ORDERABLE S Performing Organization Address City/[facility]/ZIP Code Phon e Number [address] [facility] Pathology Addendum Report (03/28/2013 12:03 PM EDT) Component Value Ref Test Analysis Performed At Patholo gist Range Method Time Signature Addendum CERNER Report ? [facility] [place] ? Provider: ?? MESHA MCKNIGHT Pt. Name: ?? GREGORY FATIMA ? Acc #: ?[id number] ?Pt. MRN: ?[id number] ? Col Date: ?? 03/28/2013 ?/Sex: ?1945,(68 [...] Organization Address City/State/ZIP [place] [address] [facility] Surgical Pathology Report (03/28/2013 12:03 PM EDT) Component Value Ref Test Analysis Performed At [facility] Range Method Time Signature Surgical [facility] Pathology ? [facility] [place] Report ? Provider: ?? MESHA MCKNIGHT Pt. Name: ?? GREGORY FATIMA ? Acc #: ?[id number] ?Pt. MRN: ?[id number] ? Col Date: ?? 03/28/2013 ?/Sex: ?1945,(68 [...] areas of hemorrhage and ? calcifications. ? [facility] ? Provider: ?? MESHA MCKNIGHT Pt. Name: ?? GREGORY FATIMA ? Acc #: ?[id number] ?Pt. MRN: ?[id number] ? Col Date: ?? 03/28/2013 ?/Sex: ?1945,(68 years),Male ? Rec Date: ?? 03/28/2013 ?LOC: ?[facility] ? SURGICAL PATHOLOGY ? SECTIONS/PROCESSING: Head Of Drama sections are subm itted. (R6) ? B [...] Organization Address City/State/[place] [address] CERNER MILLENNIUM Frozen Section Report (03/28/2013 12:03 PM EDT) Component Value Ref Test Analysis Performed At [facility] Range Method Time Signature Frozen CERNER Section ? [facility] Report ? Provider: ?? MESHA MCKNIGHT Pt. Name: ?? GREGORY FATIMA ? Acc #: ?[id number] ?Pt. MRN: ?[id number] ? Col Date: ?? 03/28/2013 ?/Sex: ?1945,(68 [...] MD PATHOLOGY/CYTOLOGY ORDERABLE S Performing Organization Address [facility] [place] [address] CERNER MILLENNIUM POCT Glucose [...] S Performing Organization Address [facility]/ZIP [facility] [place] [address] CERNER MILLENNIUM Specimen to [...] MD PATHOLOGY/CYTOLOGY ORDERABLE S Performing Organization Address [facility]/State/ZIP Code Phon e Number [address] [facility] MILLENNIUM Antibody screen (03/28/2013 9:37 AM [...] MD BLOOD BANK ORDERABLES Performing Organization Address City/[facility]/ZIP Code Phon e Number [address] [facility] ABO/Rh Typing (03/28/2013 9:37 AM EDT) P athologist Signature ABORh Type O Pos [facility] Specimen Anatomical Collection Method Collection Time Receive d Time (Source) Location / / Volume Laterality Blood specimen 03/28/2013 9:37 AM 013 9:37 (specimen) EDT AM EDT Resulting Agency Comment Spec In Lab Mesha Mcknight MD BLOOD BANK ORDERABLES Performing Organization Address City/[facility]/ZIP Code Phon e Number [address] [facility] Differential, Automated (03/28/2013 9:34 AM EDT) [...] Organization Address City/State/[place] [address] CERNER MILLENNIUM (ABNORMAL) Basic [...] Organization Address City/State/ZIP Code Phon e Number [place] [id number] CERNER MILLENNIUM (ABNORMAL) CBC [...] MCHC 33.7 32.0 - CERNER 36.5 gm/dL [facility] Platelets 161 145 - 370 CERNER x10(3)/mcL MILLENNIUM RDWSD 43.7 35.0 - CERNER 46.0 fL BANNERIUM RDWCV 14.2 10.9 - CERNER 14.4 % [facility] MPV 9.3 9.0 - 12.0 CERNER fL [facility] Specimen Anatomical Collection Method Collection Time Receive d Time (Source) Location / / Volume Laterality Blood specimen 03/28/2013 9:34 AM 013 9:38 (specimen) EDT AM EDT Resulting Agency Comment Spec In Lab Mesha Mcknight MD HEMATOLOGY ORDERABLES Performing Organization Address City/State/ZIP Code Phon e Number [address] [facility] POCT Glucose (03/28/2013 9:17 AM EDT) athologist Signature POC Glucose 108 60 - 199 CERNER mg/dL [facility] Comment: Supplemental ranges: <110 mg/dL before meals <200 mg/dL all other times of the day Specimen Anatomical Collection Method Collection Time Receive d Time (Source) Location / / Volume Laterality Blood specimen 03/28/2013 9:17 AM 013 9:17 (specimen) EDT AM EDT Mesha Mcknight MD POINT OF CARE TEST ORDERABLE S Performing Organization Address City/[facility]/ZIP Code Phon e Number [address] [facility] Specimen to Pathology (surgical or derm) (03/28/2013 8:55 AM EDT) Specimen Anatomical Collection Method Collection Time Receive d Time (Source) Location / / Volume Laterality AP Specimen 03/28/2013 8:55 AM 3 8:54 EDT AM EDT Narrative [facility] - 03/28/2013 8:55 AM E DT Specimen requisition ordered. ??Separate Pathology report to follow Mesha Mcknight MD PATHOLOGY/CYTOLOGY ORDERABLE S Performing Organization Address City/[facility]/ZIP [place] [address] [facility] documented in this encounter Visit Diagnoses [...] RN) 0900 (Given - Provider: Radha Yao rust, RN) 2.5 mg, Oral, DAILY, First dose [...] override documented in this encounter Care Teams Supercalender Operator Relationship Specialty Start Date End Date Angela Holliday APRN PCP - General 01/25/13 04/15/15 [address] [place] [address] documented as of this encounter
--- OUTSIDE RECORDS SUMMARY | 2022-03-13 11:04 | XMS_ITS | Encounter Summary ---
:1945 [place] [address] Care Team Providers Name Role Phone MiyaLokeshAngela STACIE Primary Care Provider Encounter Details Date Type Department Care Team Description 03/28/2013 Anesthesia Event Main Operating Room Meredith Calvert MD [facility] [place] [address] [facility] Nolvia Riojas PA [facility] [place] [address] [place] [address] Anesthesia Record Procedure Summary Procedure Name [...] Vitaliy Nobles MD [facility] [address] [place], [place] [address] (Wo rk) 05/28/2022 Appointment Cardiology Zulma Dolan MD [facility] [place], [place] [address] (Wo rk) 05/28/2022 Laboratory Appointment Lab 05/28/2022 Office Visit Cardiology Zulma Dolan MD [facility] [place] [address] Liz Poole PA [facility] [place] [address] 06/10/2022 Office Visit Dermatology Laura Scherer MD [facility] DR [address] [place], [place] [address] (Wo rk) documented as [...] Routine documented in this encounter Care Teams Merchandise Collector Relationship Specialty Start Date End Date Angela Holliday APRN PCP - General 01/25/13 04/15/[address] [place] [address] documented as of this encounter
--- OUTSIDE RECORDS SUMMARY | 2022-03-13 11:04 | XMS_ITS | Encounter Summary ---
:1945 Author Organization [place] [address] Care Team Providers Name Role Phone Angela Holliday APRN Primary Care Provider Encounter Details Date Type Department Care Team Description 03/15/2013 Telephone General Surgery at [facility] [place], [place] [address] Social History Tobacco Use Types Packs/Day [...] Nobles MD [facility] DR [address] [place], [place] [address] (Wo rk) 05/28/2022 Appointment Cardiology Zulma Dolan MD [facility] [address] [place], [place] [address] (Wo rk) 05/28/2022 Laboratory Appointment Lab 05/28/2022 Office Visit Cardiology Zulma Dolan MD [facility] [place] [address] Liz Poole PA [facility] [place] [address] 06/10/2022 Office Visit Dermatology Laura Scherer MD [facility] DR [address] [place], [place] [address] (Wo rk) documented as of this encounter Visit Diagnoses Not on filedocumented in this encounter Care Teams Android Architect Relationship Specialty Start Date End Date Angela Holliday APRN PCP - General 01/25/13 04/15/[address] [place] [address] documented as of this encounter
--- OUTSIDE RECORDS SUMMARY | 2022-03-13 11:04 | XMS_ITS | Encounter Summary ---
:1945 Author Organization [facility] [place] [address] Care Team Providers Name Role Phone Angela Holliday APRN Primary Care Provider Encounter Details Date Type Department Care Team Description 03/28/2013 Surgery Main Operating Room Mesha Mcknight, THYROIDECTOMY, TOTAL OR [facility] COMPLETE (WRVU 15.04) [facility] DR Siddiqui [place] [address] [place] [address] [phone] (Wo rk) Social History Tobacco Use Types [...] please call the General Surgery nurse at [phone], since this may mean that you need morecalcium. Follow-up Appointment: Will be scheduled with Dr. Mcknight in 6 weeks Date and time as well as any required labs will be mailed to you Please call [phone] to confirm date and time of your [...] by calcium supplementation. Phone number for questions: [phone] before 5 PM weekdays [phone] after 5 PM and on weekends/holidays Please follow up with Urology as per their recommendations for Bob removal AttachmentsThe following attachments cannot be sent through Care Everywhere. THYROIDECTOMY: WHAT TO EXPECT AT HOME (GREEK)URINARY CATHETER CARE: AFTER YOUR VISIT (GREEK)documented in this encounter Medications at Time of [...] is a 68 y.o. male presents to [facility] today for total thyroidectomy. See full [...] MD - 03/28/2013 3:43 PM EDT [facility] Operative Note Patient Name: Gregory Fatima : [id number] MR#: [id number] Case Date: 03/28/2013 Surgeon: Surgeon(s) and Role: [...] patient was extubated and taken to the [facility] in stable condition. At the end [...] Operative Note Patient Name: Gregory Fatima : [id number] MR#: [id number] Case Date: 03/28/2013 Surgeon: Surgeon(s) and Role: [...] Vitaliy Nobles MD [facility] [address] [place], [place] [address] (Wo rk) 05/28/2022 Appointment Cardiology Zulma Dolan MD [facility] [address] [place] [address] (Wo rk) 05/28/2022 Laboratory Appointment Lab 05/28/2022 Office Visit Cardiology Zulma Dolan [place] [address] Liz Poole PA [facility] [place] [address] 06/10/2022 Office Visit Dermatology Laura Scherer MD [facility] ER DR [address]-DERMAT [place], [place] [address] (Wo rk) documented as [...] 332 (H) 60 - 199 CERNER mg/dL [facility] Comment: Supplemental ranges: <110 mg/dL before meals <200 mg/dL all other times of the day Specimen Anatomical Collection Method Collection Time Receive d Time (Source) Location / / Volume Laterality Blood specimen 03/29/2013 8:08 AM 013 8:08 (specimen) EDT AM EDT Mesha Mcknight MD POINT OF CARE TEST ORDERABLE S Performing Organization Address City/State/[place] [address] CERNER MILLENNIUM (ABNORMAL) POCT Glucose (03/29/2013 4:04 AM EDT) athologist Signature POC Glucose 247 (H) 60 - 199 CERNER mg/dL [facility] Comment: Supplemental ranges: <110 mg/dL before meals <200 mg/dL all other times of the day Specimen Anatomical Collection Method Collection Time Receive d Time (Source) Location / / Volume Laterality Blood specimen 03/29/2013 4:04 AM 013 4:04 (specimen) EDT AM EDT Mesha Mcknight MD POINT OF CARE TEST ORDERABLE S Performing Organization Address City/State/ZIP Code Phon e Number [address] CERNER MILLENNIUM (ABNORMAL) POCT [...] ORDERABLE S Performing Organization Address City/[facility]/ZIP Code Phon e Number [address] CERNER MILLENNIUM (ABNORMAL) POCT [...] ORDERABLE S Performing Organization Address City/[facility]/ZIP Code Phon e Number [address] CERNER MILLENNIUM (ABNORMAL) POCT [...] Organization Address City/State/[place] [address] CERNER MILLENNIUM (ABNORMAL) POCT [...] ORDERABLE S Performing Organization Address City/[facility]/ZIP Code Phon e Number [address] CERNER MILLENNIUM (ABNORMAL) POCT [...] ORDERABLE S Performing Organization Address City/[facility]/ZIP Code Phon e Number [address] CERNER MILLENNIUM (ABNORMAL) POCT Glucose (03/28/2013 2:49 PM EDT) P athologist Signature POC Glucose 319 (H) 60 - 199 CERNER mg/dL [facility] Comment: Supplemental ranges: <110 mg/dL before meals <200 mg/dL all other times of the day Specimen Anatomical Collection Method Collection Time Receive d Time (Source) Location / / Volume Laterality Blood specimen 03/28/2013 2:49 PM 013 2:49 (specimen) EDT PM EDT Mesha Mcknight MD POINT OF CARE TEST ORDERABLE S Performing Organization Address City/[facility]/ZIP Code Phon e Number [address] [facility] Specimen to Pathology (surgical or derm) (03/28/2013 12:14 PM EDT) Specimen Anatomical Collection Method Collection Time Receive d Time (Source) Location / / Volume Laterality AP Specimen 03/28/2013 12:14 03/28/2013 PM EDT 12:14 PM EDT Narrative [facility]ER [facility] - 03/28/2013 12:14 PM EDT Specimen requisition ordered. ??Separate Pathology report to follow Mesha Mcknight MD PATHOLOGY/CYTOLOGY ORDERABLE S Performing Organization Address City/[facility]/ZIP Code Phon e Number [address] [facility] Pathology Addendum Report (03/28/2013 12:03 PM EDT) Component Value Ref Test Analysis Performed At Patholo gist Range Method Time Signature Addendum CERNER Report ? [facility] ? Provider: ?? MESHA MCKNIGHT Pt. Name: ?? GREGORY FATIMA ? Acc #: ?[id number] ?Pt. MRN: ?[id number] ? Col Date: ?? 03/28/2013 ?/Sex: ?1945,(68 [...] Organization Address City/State/[place] [address] [facility] Surgical Pathology Report (03/28/2013 12:03 PM EDT) Component Value Ref Test Analysis Performed At [facility] Range Method Time Signature Surgical [facility] Pathology ? [facility] Report ? Provider: ?? MESAH MCKNIGHT Pt. Name: ?? GREGORY FATIMA ? Acc #: ?[id number] ?Pt. MRN: ?[id number] ? Col Date: ?? 03/28/2013 ?/Sex: ?1945,(68 [...] areas of hemorrhage and ? calcifications. ? [facility] ? Provider: ?? MESHA MCKNIGHT Pt. Name: ?? GREGORY FATIMA ? Acc #: ?[id number] ?Pt. MRN: ?[id number] ? Col Date: ?? 03/28/2013 ?/Sex: ?1945,(68 years),Male ? Rec Date: ?? 03/28/2013 ?LOC: ?[facility] ? SURGICAL PATHOLOGY ? SECTIONS/PROCESSING: Hand Printed Circuit Board Assembler sections are subm itted. (R6) ? B [...] Organization Address City/State/[place] [address] CERNER MILLENNIUM Frozen Section Report (03/28/2013 12:03 PM EDT) Component Value Ref Test Analysis Performed At [facility] Range Method Time Signature Frozen CERNER Section ? [facility] Report ? Provider: ?? MESHA MCKNIGHT Pt. Name: ?? GREGORY FATIMA ? Acc #: ?[id number] ?Pt. MRN: ?[id number] ? Col Date: ?? 03/28/2013 ?/Sex: ?1945,(68 [...] MD PATHOLOGY/CYTOLOGY ORDERABLE S Performing Organization Address [facility] [place] [address] CERNER MILLENNIUM POCT Glucose [...] CARE TEST ORDERABLE S Performing Organization Address [facility]/ZIP [facility] [place] [address] CERNER MILLENNIUM Specimen to [...] MD PATHOLOGY/CYTOLOGY ORDERABLE S Performing Organization Address [facility]/State/ZIP Code Phon e Number [address] [facility] MILLENNIUM Antibody screen (03/28/2013 9:37 AM [...] BANK ORDERABLES Performing Organization Address City/[facility]/ZIP Code Phon e Number [address] [facility] ABO/Rh Typing (03/28/2013 9:37 AM EDT) P athologist Signature ABORh Type O Pos [facility] Specimen Anatomical Collection Method Collection Time Receive d Time (Source) Location / / Volume Laterality Blood specimen 03/28/2013 9:37 AM 013 9:37 (specimen) EDT AM EDT Resulting Agency Comment Spec In Lab Mesha Mcknight MD BLOOD BANK ORDERABLES Performing Organization Address City/[facility]/ZIP Code Phon e Number [address] [facility] Differential, Automated (03/28/2013 9:34 AM EDT) P [...] Organization Address City/State/[place] [address] CERNER MILLENNIUM (ABNORMAL) Basic [...] supplied above were not validated at [facility]. Results from pediatri c [...] City/State/ZIP Code Phon e Number [place] [id number] CERNER MILLENNIUM (ABNORMAL) CBC [...] MCHC 33.7 32.0 - CERNER 36.5 gm/dL [facility] Platelets 161 145 - 370 CERNER x10(3)/mcL MILLENNIUM RDWSD 43.7 35.0 - CERNER 46.0 fL ENNIUM RDWCV 14.2 10.9 - CERNER 14.4 % [facility] MPV 9.3 9.0 - 12.0 CERNER fL [facility] Specimen Anatomical Collection Method Collection Time Receive d Time (Source) Location / / Volume Laterality Blood specimen 03/28/2013 9:34 AM 013 9:38 (specimen) EDT AM EDT Resulting Agency Comment Spec In Lab Mesha Mcknight MD HEMATOLOGY ORDERABLES Performing Organization Address City/State/ZIP Code Phon e Number [address] [facility] POCT Glucose (03/28/2013 9:17 AM EDT) athologist Signature POC Glucose 108 60 - 199 CERNER mg/dL [facility] Comment: Supplemental ranges: <110 mg/dL before meals <200 mg/dL all other times of the day Specimen Anatomical Collection Method Collection Time Receive d Time (Source) Location / / Volume Laterality Blood specimen 03/28/2013 9:17 AM 013 9:17 (specimen) EDT AM EDT Mesha Mcknight MD POINT OF CARE TEST ORDERABLE S Performing Organization Address City/[facility]/ZIP Code Phon e Number [address] [facility] Specimen to Pathology (surgical or derm) (03/28/2013 8:55 AM EDT) Specimen Anatomical Collection Method Collection Time Receive d Time (Source) Location / / Volume Laterality AP Specimen 03/28/2013 8:55 AM 3 8:54 EDT AM EDT Narrative [facility] - 03/28/2013 8:55 AM E DT Specimen requisition ordered. ??Separate Pathology report to follow Mesha Mcknight MD PATHOLOGY/CYTOLOGY ORDERABLE S Performing Organization Address City/[facility]/[place] [address] [facility] documented in this encounter Visit Diagnoses [...] override documented in this encounter Care Teams Route Sales Delivery Drivers Supervisor Relationship Specialty Start Date End Date Angela Holliday APRN PCP - General 01/25/13 04/15/[address] [place] [address] documented as of this encounter
--- OUTSIDE RECORDS SUMMARY | 2022-03-13 11:04 | XMS_ITS | Encounter Summary ---
:1945 Author Organization [facility] [place] [place] [address] Care Team Providers Name Role Phone Angela Holliday APRN Primary Care Provider Encounter Details Date Type Department Care Team Description 03/30/2013 Telephone General Surgery at [facility] Cliff Nevarez, [place] [address] Social History Tobacco Use Types Packs/Day [...] [facility] CARDIOLOGY [place], [place] [address] (Wo rk) 05/28/2022 Appointment Cardiology Zulma Dolan MD [facility] [address] [place], [place] [address] (Wo rk) 05/28/2022 Laboratory Appointment Lab 05/28/2022 Office Visit Cardiology Zulma Dolan MD [facility] [place] [address] Liz Poole PA [facility] [place] [address] 06/10/2022 Office Visit Dermatology Laura Scherer MD [facility] DR TEJA GR-DERMAT [place], [place] [address] (Wo rk) documented as of this encounter Visit Diagnoses Not on filedocumented in this encounter Care Teams Center Mgr Relationship Specialty Start Date End Date Angela Holliday APRN PCP - General 01/25/13 04/15/[address] [place] [address] documented as of this encounter
--- OUTSIDE RECORDS SUMMARY | 2022-03-13 11:05 | XMS_ITS | Encounter Summary ---
:1945 Author Organization [facility] Address [address] [place] [address] Care Team Providers Name Role Phone Lovely Vicente MD Primary Care Provider Encounter Details Date Type Department Care Team Description 02/20/2022 Lab Requisition [place] Outr Resulting Lab, Pathology & Laboratory Provider [facility] [address] [place] [address] Social History Tobacco Use Types Packs/Day Years [...] Pathologist Sig nature PSA 2.7 <=6.5 ng/mL [facility] LABORATOR Y SERVICES Specimen Blood - Venous blood (substance) Narrative [facility] LABORATORY SERVICES - 02/20/2022 18:17 EDT NOTE: Serum PSA concentration should not be in terpreted as absolute evidence for the presence or absence of malignant disease. Assayed on Siemens ADVIA Centaur XPT usi ng chemiluminescent technology.??Values obtained by using different assay methods cannot be used interchangeably. Performing Organization Address City/State/ZIP Code Phon e Number [facility] LABORATORY [address] [place] [address] SERVICES documented in this encounter Visit Diagnoses Not on filedocumented in this encounter Care Teams Funeral Director/Embalmer/Owner Relationship Specialty Start Date End Date Lovely Vicente MD PCP - General 07/13/14 documented as of this encounter
--- OUTSIDE RECORDS SUMMARY | 2022-03-13 11:05 | XMS_ITS ---
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 Problem Critical ischemia I99.8 Active of lower extremity Problem Atherosclerosis I70.90 Active 3871 6007 Problem Type 2 diabetes E11.628 Active mellitus with other skin complications Problem 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 40 ; Acquired deformi ty of right foot M21.961 ; L luis term current use of i nsulin Z79.4 ; History of art erial bypass of lower extremi ty Z95.828 ; Atherosclerosis I70.90 and History of Lisfr anc amputation of fo ot Z89.439 [facility] Feb, Type 2 diabet es mellitus [address] [place], [place]ic [place], [address] unspecified E11. 40 ; Acquired deformi ty of right foot M21.961 ; L luis term current use of i nsulin Z79.4 ; History of art erial bypass of lower extremi ty Z95.828 ; Atherosclerosis I70.90 and History of Lisfr anc amputation of fo ot Z89.439 [facility] November, [place] [address] [facility] [address] [facility] November, Type 2 [place] [address] with diabeti c neuropathy, unspecified E11. 40 ; Acquired deformi ty of right foot M21.961 ; L luis term current use of i nsulin Z79.4 ; History of art erial bypass of lower extremi ty Z95.828 ; Atherosclerosis I70.90 and History of Lisfr anc amputation of fo ot Z89.439 [facility] 10 Aug, 2019 Type 2 [place] [address] with other skin complications E1 1.628 ; Tinea pedis of l eft foot B35.3 ; Type 2 d iabetes mellitus with di abetic neuropathy, unsp ecified E11.40 ; Acquire d deformity of right foot M2 1.961 ; intermediate current use of insulin Z79.4 ; History of arterial bypass of lower extremity Z95.828 and Athe rosclerosis I70.90 [facility] Jun, [place] [address] [address] Jun, [place] [address] [address] Jun, Type 2 diabet es mellitus [place] with other skin [address] complications E1 1.628 ; Acquired deformi ty of right foot M21.961 ; T ype 2 diabetes mellitu s with diabetic neuropa thy, unspecified E11. 40 ; rn long term care current use of insulin Z79.4 and Histor y of arterial bypass of lower extremity Z95.82 8 [facility] [address] [facility] Feb, Type 2 [place] [address] with other s kin complications E1 1.628 ; Acquired deformi ty of right foot M21.961 ; T ype 2 diabetes mellitu s with diabetic neuropa thy, unspecified E11. 40 ; intermediate current use of insulin Z79.4 and Histor y of arterial bypass of lower extremity Z95.82 [address] November, Tinea pedis o f left foot [place], [place] B35.3 ; Ty pe 2 diabetes [address] mellitus with ot her skin complications E1 1.628 ; Acquired deformi ty of right foot M21.961 ; T ype 2 diabetes mellitu s with diabetic neuropa thy, unspecified E11. 40 ; rn long term care current use of insulin Z79.4 and Histor y of arterial bypass of lower extremity Z95.82 8 [facility] November, [place] [address] [address] Aug, Type 2 diabet es mellitus [place] with diabe tic neuropathy, [address] unspecified E11. 40 ; Acquired deformi ty of right foot M21.961 ; P eripheral arterial disease I73.9 ; History of arter ial bypass of lower extremi ty Z95.828 ; intermediate curren t use of insulin Z79.4 an d History of Lisfranc amputat ion of foot Z89.439 UNKNOWN Jul, [facility] 11 Jun, 2018 Type 2 [place] [address] with diabeti c neuropathy, unspecified E11. [address] Apr, Edema of both legs R60.0 ; [place] Acquired d eformity of right [address] foot M21.961 ; P eripheral arterial disease I73.9 ; History of arter ial bypass of lower extremi ty Z95.828 ; rn long term care curren t use of insulin Z79.4 an d Type 2 diabetes mellitu s with diabetic neuropa thy, unspecified E11. [address] [facility] Mar, [place] [address] [address] Mar, Edema of both legs R60.0 ; [place] Acquired d eformity of right [address] foot M21.961 ; P eripheral arterial disease I73.9 ; History of arter ial bypass of lower extremi ty Z95.828 ; rn long term care curren t use of insulin Z79.4 an d Type 2 diabetes mellitu s with diabetic neuropa thy, unspecified E11. 40 [facility] Feb, Edema of both legs R60.0 ; [place] [address] Ulcer of lef t calf, limited to breakdown of skin L97.221 ; Acquired defor mity of right foot M21.9 61 ; Peripheral arter ial disease I73.9 ; History of arterial bypass of lower extremity Z95.828 ; Long t erm current use of insulin Z 79.4 and Type 2 diabetes mellitus with diabetic ne uropathy, unspecified E11. 40 [facility] 1 Feb, [place] [address] [facility] Feb, Edema of both legs R60.0 ; [place] [address] Ulcer of rig ht calf, limited to [...] [facility] [address] [facility] Feb, [place] [address] [facility] [address] [facility] [address] Feb, [place] [address] [facility] [address] [facility] [address] Jan, [place] [address] [facility] [address] [facility] [facility] [address] Jan, [place] [address] [facility] [address] [address] Jan, [place] [address] [facility] [address] [facility] [address] Jan, [place] [address] [facility] [address] [facility] [address] Jan, [place] [address] [facility] [address] [facility] [facility] [address] Dec, [place] [address] [facility] [address] [address] Dec, [place] [address] [facility] [address] [facility] [facility] [address] Dec, [place] [address] [facility] [address] [facility] [facility] [facility] [address] Dec, [place] [address] [facility] Dec, [place] [address] [facility] [address] [facility] [facility] [facility] [address] Dec, [place] [address] [facility] November, [place] [address] [facility] November, [place] [address] [facility] November, [place] [address] [facility] November, [place] [address] [facility] November, [place] [address] [facility] November, [place] [address] UNKNOWN November, [facility] [address] November, OFFICE [place] [address] [facility] November, [place], [place] [address] [facility] Oct, [place] [address] [facility] Oct, [place] [address] [facility] Oct, [place] [address] [facility] [address] 18 Oct, 2017 [place] [address] [facility] 16 Oct, 2017 [place] [address] [facility] [facility] [address] 16 Oct, 2017 [facility] [address] [facility] [address] [facility] Oct, [place] [address] [facility] [address] [facility] Oct, [place] [address] [facility] Oct, [place] [address] [facility] [address] Sep, [facility] [address] [facility] Sep, [place] [address] [facility] [address] Sep, [place] [address] [facility] [address] Sep, [place] [address] [facility] [address] Sep, [place] [address] [facility] [facility] [address] Sep, Critical ischemi a of lower [place] [address] extremity I 99.8 ; Local infection of the skin and subcutaneous tis lindsey, unspecified L08. 9 and Type 2 diabetes mellitu s with other skin complicatio ns E11.628 [facility] [address] [facility] Sep, [place] [address] [facility] [address] [facility] [address] Sep, [place] [address] [facility] [address] [facility] [address] Sep, [place] [address] [facility] [address] [facility] 14 Sep, [address] [place] [address] [facility] Sep, [place] [address] [facility] [address] [facility] Sep, [place] [address] [facility] [address] [facility] Sep, [place] [address] [facility] Sep, [place] [address] [facility] [address] [facility] [address] Aug, [place] [address] [facility] [address] Aug, [facility] [address] [facility] [address] Aug, [place] [address] SURG[facility] [address] [facility] Aug, [place] [address] SURG[facility] [address] [facility] Aug, [place] [address] [facility] [address] [facility] Aug, [place] [address] ORTHOPEDIC OFFICE [address] [facility] Aug, Pre-op exam Z01.818 [place] [address] [facility] Aug, [place] [address] [facility] Aug, [place] [address] [facility] Aug, [place] [address] IMMUNIZATIONS No Known Immunizations SOCIAL HISTORY Qualifiers [...] subcutaneously 22 24h Active units/mL daily Pen Hollister Active Ciclopirox Externally Twice 1 application 12h [...] PT/INR 2017-12-16 PT 15.0 9.3-11.4 INR 1.5 CRP-INFLAM 2017-12-14 CRP <0.2 0.0-0.9 SED RATE 2017-12-14 ESR 16 0-20 X Foot R 3V 2017-12-14 See Below For Report CBC WITH AUTO DIFF 2017-12-14 WBC 7.0 [...] 46-116 AST 26 15-37 ALT 36 13-78 MULTIPLE LABS 2017-11-22 X Chest 1V 2017-11-23 [...] For Report MR Lower Ext R w/o ([id number]) 2017-09-16 See Below For Report CR C-ARM [...] A1c 03/04/18 - 6.7, [facility],MD annually, f/u - bilateral leg edema, Pt [...] at wound center,lab work done 03/07/2018 @ [facility], Patient came in with tubigrip bilateral , wound clin est, wound clinest, Wound CTR-follow up, Wound CTR-follow up, Wound CTR-follow up, Peer to Peer w/ Dr. Espino, Wound CTR-follow up, Wound CTR-follow up, Quality Management Nurse Documentation, LAB, Wound CTR-follow up, Wound CTR-follow up, Wound CTR-follow up, Wound CTR-follow up, LAB, LAB, Wound CTR- follow up, Wound CTR-follow up, Wound CTR-follow up, Quality Management Nurse Documentation, [facility], Wound CTR-follow up, Wound CTR-follow up, Pull PICC Line, Wound CTR-follow up, Wound CTR-follow up, LAB, Still taking doxycycline 100mg? , Wound CTR-follow up, Wound CTR-follow up, Wound CTR-follow up, Quality Management Nurse Documentation, Wound CTR-follow up, Wound CTR-follow up, Call back, Quality Management Nurse Documentation, Quality Management Nurse Documentation, Quality Management Nurse Documentation, Wound CTR-follow up, WCC, Wound CTR-follow up, Wound CTR-follow up, labs, D/C planning, bailey smetatarsal amputation of right foot, LAB, LAB, Wound CTR-NEW Insurance Providers [facility] Health Member Patient Patient Patient Patient Patient Subscriber Subscriber Subscriber Group Insurance Plan Plan Plan Plan ID Relationship Address Phone Name Date of ID Name Date of No Type Insurance Insurance Insurance Coverage to Subscriber Address Phone Name Dates MEDICARE [address] MEDICARE self [place] [id number] 1 [id number] [facility] [id number] S-BLUE [phone] S-BLUE [place] [id number] [place] [address] [place] [address] SELF PAY self [place] [id number] AFTER BLUE [place] AFTER BLUE [facility] [id number] [address] OTHER [address] [place] [phone] OTHER [place] [id number] GRANT 1^MAIN DEMOCRAT [facility] PAYOR [id number]
--- OUTSIDE RECORDS SUMMARY | 2022-03-13 11:05 | XMS_ITS | Encounter Summary ---
:[address] [facility] Address [address] [place] [address] Care Team Providers Name Role Phone Lovely Vicente MD Primary Care Provider Encounter Details Date Type Department Care Team Description 08/11/2019 Lab Requisition [facility] Unknown, Provider, Pathology & Laboratory [facility] [address] [facility] [place] [address] Social History Tobacco Use Types Packs/Day Years [...] Pathologist Sig nature Salmonella PCR Negative Negative [facility] Shigella/Enteroinvasive Negative Negative [facility] R E. coli LABORATORY SERVICES HN LAB CAMPYLOBACTER PCR Negative Negative [facility] ER LABORATORY SERVICES Shiga Toxin PCR Negative Negative [facility] Specimen Feces - Specimen from rectum (specimen) Performing Organization Address City/State/ZIP Code Phon e Number [facility] [address] [place] [address] SERVICES documented in this encounter Visit Diagnoses Not on filedocumented in this encounter Care Teams African History Professor Relationship Specialty Start Date End Date Lovely Vicente MD PCP - General 07/13/14 documented as of this encounter
--- OUTSIDE RECORDS SUMMARY | 2022-03-13 11:05 | XMS_ITS | Encounter Summary ---
:1945 Author Organization [facility] Address [address] [place] [address] Care Team Providers Name Role Phone Lovely Vicente MD Primary Care Provider Encounter Details Date Type Department Care Team Description 04/04/2021 Lab Requisition [facility] Outr Resulting Lab, Pathology & Laboratory Provider [facility] [address] [place] [address] Social History Tobacco Use Types Packs/Day Years [...] (04/03/2021 12:15 EDT) Giardia and Cryptosporidium Cryptosporidium [facility] Cryptosporidium Antigen Neg and Antigen Neg and CENTER Giardia Antigen Neg Giardia Antigen Neg LABORATORY SERVICES Specimen Feces - Specimen from rectum (specimen) Performing Organization Address City/State/ZIP Code Phon e Number [facility] [address] [place] [address] SERVICES documented in this encounter Visit Diagnoses Not on filedocumented in this encounter Care Teams Flat Surfacer Relationship Specialty Start Date End Date Lovely Vicente MD PCP - General 07/13/14 documented as of this encounter
--- OUTSIDE RECORDS SUMMARY | 2022-03-13 11:05 | XMS_ITS | Clinical Summary ---
:1945 Author Organization [facility] Address [address] [place] [address] Care Team Providers Name Role Phone Lovely [...] i n the results section. COVID-19 TEST [facility] Today 01/27/2022 14:30 LAB PCR EDT COVID-19 TESTING Routine 01/27/2022 14:30 Results for this EDT procedure are i n the results section. from Last 3 Months Results PSA TOTAL, DIAGNOSTIC (02/20/2022 9:04 EDT) Pathologist Sig nature PSA 2.7 <=6.5 ng/mL [facility] LABORATOR Y SERVICES Specimen Blood - Venous blood (substance) Narrative [facility] SERVICES - 02/20/2022 18:17 EDT NOTE: Serum PSA concentration should not be in terpreted as absolute evidence for the presence or absence of malignant disease. Assayed on Siemens [employer]IA Centaur XPT usi ng chemiluminescent technology.??Values obtained by using different assay methods cannot be used interchangeably. Performing Organization Address City/State/ZIP Code Phon e Number [facility] [address] [place] [address] SERVICES COVID-19 TEST [facility] LAB PCR (01/27/2022 14:30 EDT) Specimen Swab Performing Organization Address City/[facility]/ZIP Code Phon e Number [facility] [address] [place] [address] SERVICES COVID-19 TESTING (01/27/2022 14:30 EDT) COVID-19 rt-PCR Negative Negative [facility] Result Comment: CENTER LABORATORY This [...] performed using the meliton SARS-CoV-2 assay ([employer] on the Meliton 6800 System Performing Lab Meliton 6800 [facility] Lab [facility] SERVICES Specimen Swab Performing Organization Address City/[facility]/ZIP Code Phon e Number [facility] [address] [place] [address] SERVICES from Last 3 Months Care Teams Jacquard Loom Carpet Weaver Relationship Specialty Start Date End Date Lovely Vicente MD PCP - General 07/13/14
--- OUTSIDE RECORDS SUMMARY | 2022-03-13 11:05 | XMS_ITS | Encounter Summary ---
:1945 Author Organization [facility] Address [address] [place] [address] Care Team Providers Name Role Phone Lovely Vicente MD Primary Care Provider Encounter Details Date Type Department Care Team Description 01/01/2020 Lab Requisition [facility] Outr Resulting Lab, Pathology & Laboratory Provider [facility] [address] [place] [address] Social History Tobacco Use Types Packs/Day Years [...] nature PSA 2.1 0.0 - 6.5 ng/mL [facility] LABORA TORY SERVICES Specimen Blood - Venous blood (substance) Narrative [facility] SERVICES - 01/02/2020 10:40 EDT NOTE: Serum PSA concentration should not be in terpreted as absolute evidence for the presence or absence of malignant disease. Assayed on Siem[employer] Centaur XPT usi ng chemiluminescent technology.??Values obtained by using different assay methods cannot be used interchangeably. Performing Organization Address City/State/ZIP Code Phon e Number [facility] [address] [place] [address] SERVICES documented in this encounter Visit Diagnoses Not on filedocumented in this encounter Care Teams Career Services Assistant Relationship Specialty Start Date End Date Lovely Vicente MD PCP - General 07/13/14 documented as of this encounter
--- OUTSIDE RECORDS SUMMARY | 2022-03-13 11:05 | XMS_ITS | Encounter Summary ---
:1945 Author Organization [facility] Address [address] [place] [address] Care Team Providers Name Role Phone Unknown, Provider Primary Care Provider Encounter Details Date Type Department Care Team Description 03/05/2014 Results Only [facility] Eris Taylor MD Laboratory Services - [address] [place] [address] [place] [address] [phone] Social History Tobacco Use Types Packs/Day Years [...] ? DON HOANG ? Accession #: ? [id number] ? : ? 1945 (Age: 68) ??M [...] Organization Address City/State/ZIP Code Phon e Number [facility] [address] [place] [address] SERVICES [facility] [address] [place] [address] documented in this encounter Visit Diagnoses Not on filedocumented in this encounter Care Teams Health Insurance Sales Agent Relationship Specialty Start Date End Date Unknown, Provider, PCP - General 03/07/14 07/12/14 documented as of this encounter
--- OUTSIDE RECORDS SUMMARY | 2022-03-13 11:05 | XMS_ITS | Encounter Summary ---
:1945 Author Organization [facility] Address [address] [place] [address] Care Team Providers Name Role Phone Unknown, Provider Primary Care Provider Encounter Details Date Type Department Care Team Description 07/11/2014 Hospital Encounter [facility] Unknown, Provider, [facility] [address] [place] [address] [place] [address] (Work) [phone] Social History Tobacco Use Types Packs/Day Years Used Date Never Assessed Sex Assigned at Date Recorded Not on file documented as of this encounter Discharge Disposition Disposition Code Departure Means Destination Home or Self [facility] documented in this encounter Plan of Treatment Not on filedocumented as of this encounter Visit Diagnoses Not on filedocumented in this encounter Care Teams Cake Tester Relationship Specialty Start Date End Date Unknown, Provider, PCP - General 03/07/14 07/12/14 documented as of this encounter
--- OUTSIDE RECORDS SUMMARY | 2022-03-13 11:05 | XMS_ITS | Encounter Summary ---
:1945 Author Organization [facility] Address [address] [place] [address] Care Team Providers Name Role Phone Lovely Vicente MD Primary Care Provider Encounter Details Date Type Department Care Team Description 04/04/2021 Lab Requisition [facility] Outr Resulting Lab, Pathology & Laboratory Provider [facility] [address] [place] [address] Social History Tobacco Use Types Packs/Day Years [...] Pathologist Sig nature Salmonella PCR Negative Negative [facility]ORY SERVICES Shigella/Enteroinvasive Negative Negative [facility] R E. coli LABORATORY SERVICES HN LAB CAMPYLOBACTER PCR Negative Negative [facility] LABORATORY SERVICES Shiga Toxin PCR Negative Negative [facility] SERVICES Specimen Feces - Specimen from rectum (specimen) Performing Organization Address City/State/ZIP Code Phon e Number [facility] [address] [place] [address] SERVICES documented in this encounter Visit Diagnoses Not on filedocumented in this encounter Care Teams Rack Loader Relationship Specialty Start Date End Date Lovely Vicente MD PCP - General 07/13/14 documented as of this encounter
--- OUTSIDE RECORDS SUMMARY | 2022-03-13 11:05 | XMS_ITS | Encounter Summary ---
:[address] [facility] Address [address] [place] [address] Care Team Providers Name Role Phone Lovely Vicente MD Primary Care Provider Encounter Details Date Type Department Care Team Description 01/17/2021 Lab Requisition [facility] Outr Resulting Lab, Pathology & Laboratory Provider [facility] [address] [place] [address] Social History Tobacco Use Types Packs/Day Years [...] 2.9 0.0 - 6.5 ng/mL [facility] SERVICES Specimen Blood - Venous blood (substance) Narrative [facility] - 01/17/2021 17:46 EDT NOTE: Serum PSA concentration should not be in terpreted as absolute evidence for the presence or absence of malignant disease. Assayed on [employer] Centaur XPT usi ng chemiluminescent technology.??Values obtained by using different assay methods cannot be used interchangeably. Performing Organization Address City/State/ZIP Code Phon e Number [facility] [address] [place] [address] SERVICES documented in this encounter Visit Diagnoses Not on filedocumented in this encounter Care Teams Plate Setter Relationship Specialty Start Date End Date Lovely Vicente MD PCP - General 07/13/14 documented as of this encounter
--- OUTSIDE RECORDS SUMMARY | 2022-03-13 11:05 | XMS_ITS | Encounter Summary ---
:1945 Author Organization [facility] Address [address] [place] [address] Care Team Providers Name Role Phone Unavailable Primary Care Provider Unavailable Encounter Details Date Type Department Care Team Description 03/05/2014 Hospital Encounter [facility] Heather Unknown, Provider, [facility] 0 [facility] [phone] [place] [address] (Work) [phone] Social History Tobacco Use Types Packs/Day Years Used Date Never Assessed Sex Assigned at Date Recorded Not on file documented as of this encounter Discharge Disposition Disposition Code Departure Means Destination Home or Self Group Home documented in this encounter Plan of Treatment Not on filedocumented as of this encounter Visit Diagnoses Not on filedocumented in this encounter
--- OUTSIDE RECORDS SUMMARY | 2022-03-16 08:12 | XMS_ITS | Clinical Summary ---
:1945 Author Organization [facility] [place] [address] Care Team Providers Name Role Phone Lovely [...] PA 02/20/2022 Specialty Pharmacy Pharmacy Lamberto Smith uthojuliana Martinez (Entresto 24-26 mg tablets) 02/19/2022 Office Visit Cardiology Virgilio Chronic systoli c heart Liz, PA failure 02/19/2022 Laboratory Lab Chronic systoli c heart Appointment failure 01/30/2022 Surgery Cardiology Vitaliy Nobles, CARDIAC CATHET ERIZATION 01/30/2022 Laboratory Lab ASCVD (arterios clerotic Appointment cardiovascular disease) 01/30/2022 Hospital Encounter Vitaliy Nobles, ASCVD (a rteriosclerotic cardiovascular disease); 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; ASHD (arteriosc lerotic heart disease) 01/28/2022 Orders Only Cardiology GERARD GannonVD (arterios clerotic STEPHANIE Maya cardiovascular disease) 01/28/2022 Telephone Cardiology Chitra Angela RN 12/30/2021 Notes Only Cardiology Rebeka Deluca RN 12/25/2021 Office Visit Cardiology Vendetti, Chronic systoli c heart Liz, PA failure 12/25/2021 Laboratory Lab Chronic systoli c heart Appointment failure 12/24/2021 Telephone [facility] Dayami Buckner Ching 12/24/2021 Orders Only Cardiology Teressa ASCVD (arterios clerotic STEPHANIE Maya cardiovascular disease) 12/15/2021 Telephone Cardiology Barbara Mera RN from Last 3 Months Immunizations Name Administration [...] Nobles MD [facility] ER [address] [place] [address] (Wo rk) 05/28/2022 Appointment Cardiology Zulma Dolan MD [facility] er [address] [place] [address] (Wo rk) 05/28/2022 Laboratory Appointment Lab 05/28/2022 Office Visit Cardiology Zulma Dolan [place] [address] Liz Poole PA [facility] [place] [address] 06/10/2022 Office Visit Dermatology Laura Scherer MD [facility] ER [address] [place], [place] [address] (Wo rk) Health Maintenance Due Date Last Done Comments Covid-19 Vaccine (#1) 1950 Pneumoccocal Vaccine: 65+ (1 - PCV) 1952 Hepatitis C Screening 1964 Tdap adult 1965 Tetanus vaccine 1965 Zoster vaccine (1 of 2) 1996 Colonoscopy 01/16/2019 01/16/2014, 01/16/2014 Influenza (Flu) vaccine (1 of 1 - 03/26/2022 03/29/2013, Influenza standard series) Medical Devices Implanted Type Area Tire Service Supervisor Device Shelf Model / Identifier Expiration Serial / Date Lot Cable,Cut,Edg,Blnt,Ss,3tpr ([id number]) - [id number] IMPLANTS Midline: [employer] 04/01/2022 [id number] / Implanted: Qty: 4 on 07/07/2017 by Yuan Retana MD at [facility] [employer] TECHNOLOGY - / [id number] Procedures Procedure Name Priority Date/Time Associated Diagnosis [...] failure procedure are in the results section. from Last 3 Months [...] (02/19/2022 8:06 AM EDT)Only the most recent of4 results within the time period is included. Analysis Performed At [facility] logist Time Signature WBC 7.2 4.0 - 9.5 [facility] x10(3)/[facility] LABORATORY RBC 4.41 (L) 4.58 - [facility] 5.54 [facility] x10(6)/[facility] LABORATORY Hemoglobin 13.2 (L) 13.7 - [facility] 16.5 g/dL [facility] LABORATORY Hematocrit 40.9 40.5 - [facility] 48.5 % [facility] LABORATORY MCV 92.7 82.9 - [facility] 93.1 [facility] LABORATORY MCH 29.9 27.5 - [facility] 32.1 pg [facility] LABORATORY MCHC 32.3 32.0 - [facility] 35.7 g/dL [facility] LABORATORY Platelets 191 145 - 357 [facility] x10(3)/[facility] LABORATORY RDWSD 53.6 (H) 36.0 - [facility] 45.0 [facility] LABORATORY RDWCV 15.6 (H) 11.4 - [facility] 13.8 % [facility] LABORATORY MPV 8.7 7.6 - 12.9 [facility] LABORATORY nRBC % Auto 0.0 % [facility] LABORATORY nRBC Abs Auto 0.000 0.000 - [facility] 0.000 [facility] x10(3)/[facility] LABORATORY Specimen Anatomical Collection Method Collection Time Receive d Time (Source) Location / / Volume Laterality Blood 02/19/2022 8:06 AM 8:09 EDT AM EDT Resulting Agency Comment Spec In Lab Liz BROWN HEMATOLOGY ORDERABLES Performing Organization Address City/State/ZIP [place] [address] (ABNORMAL) Differential, Automated (02/19/2022 8:06 AM EDT)Only the most recent of4 resultswithin the time period is included. [facility] gist Method Time Signature Neutrophils % 76.0 % [facility] LABORATORY Neutr Abs (ANC) 5.49 1.70 - [facility] 6.10 [facility] x10(3)/[facility] LABORATORY Lymphocytes % 10.8 % [facility] LABORATORY Lymphocytes Abs 0.8 (L) 0.9 - 3.2 [facility] x10(3)/[facility] LABORATORY Monocytes % 10.2 % [facility] LABORATORY Monocyte Abs 0.7 0.3 - 0.9 [facility] x10(3)/[facility] LABORATORY Eosinophils % 1.2 % [facility] LABORATORY Eosinophils Abs 0.1 0.0 - 0.4 [facility] x10(3)/[facility] LABORATORY Basophils % 0.8 % [facility] LABORATORY Basophils Abs 0.1 0.0 - 0.1 [facility] x10(3)/[facility] LABORATORY Immature Gran % 1.00 [...] Gran Abs 0.07 (H) 0.00 - 0.04 x10(3)/[facility] LABORATORY Specimen Anatomical Collection Method Collection Time Receive d Time (Source) Location / / Volume Laterality Blood 02/19/2022 8:06 AM 2 8:09 EDT AM EDT Resulting Agency Comment Spec In Lab Liz BROWN HEMATOLOGY ORDERABLES Performing Organization Address City/State/ZIP [place] [address] (ABNORMAL) pro-Brain Natriuretic Peptide [...] Plunkett MD CHEMISTRY ORDERABLES Performing Organization Address City/[facility]/ZIP Code Phon e Number [address] POCT Glucose (01/30/2022 1:41 PM EDT)Only the most recent of4 resultswithin the time period is included. P athologist Signature POC Glucose 148 65 - 199 [facility] mg/dL [facility] LABORATORY Comment: Supplemental ranges: <140 mg/dL before meals <180 mg/dL all other times of the day Specimen Anatomical Collection Method Collection Time Receive d Time (Source) Location / / Volume Laterality Blood 01/30/2022 1:41 PM 2 1:41 EDT PM EDT Vitaliybrock Nobles MD POINT OF CARE TEST ORDERABLE S Performing Organization Address [facility] Phon e Number [address] EKG 12 Lead (01/30/2022 10:33 AM EDT) Component Value Ref Range Test Analysis Performed Pathologis t Method Time At Signature Ventricular rate 64 BPM MUSE SYSTEM Atrial Rate 64 BPM MUSE SYSTEM P-R Interval 162 ms MUSE SYSTEM QRS Duration 94 ms MUSE SYSTEM Q-T Interval 422 ms MUSE SYSTEM QTC Calculated 435 ms MUSE SYSTEM (Bezet) Calculated P [place] 41 degrees MUSE SYSTEM Calculated R [place] -27 degrees MUSE SYSTEM Calculated T [place] 104 degrees MUSE SYSTEM INTERPRETATION Normal sinus rhythm MUSE SYSTEM Anterolateral infarct (cited on or before 09-DEC-2021) Abnormal ECG When compared with ECG of 10-DEC-2021 11:17, No significant change was found Confirmed by Gary Perez ([id number]) on 01/30/2022 5:57:5 2 PM Specimen Anatomical Collection Method Collection Time Receive d Time (Source) Location / / Volume Laterality 01/30/2022 10:33 01/30/2022 5:57 AM EDT PM EDT Vitaliy Nobles MD ECG ORDERABLES Performing Organization Address [facility]/ZIP [facility] Phon e Number MUSE SYSTEM CARDIAC CATHETERIZATION (01/30/2022 10:16 AM EDT) Specimen (Source) Anatomical Location Collection Method / Collectio n Time Received Time / Laterality Volume Narrative CARDIOMAC SYSTEM - 01/30/2022 2:09 PM ED T ?[facility] ? Cardiac Cathete rization/Intervention Report ? Patient Name: Kushal, Don E. ? Procedure Date: 01/30/2022 ? A #: [id number] ? Primary Physician: Nobles, Vitaliy P ? Case #: [id number] ? File Name: [id number] ? Catheterization Order Number: [id number] ? [facility] ? Final Report [place], [place] ? Patient Name: ? Don E. Stewa rt ? ID#: ?[id number] ? : ?1945 ? Procedure Date: ? [...] ASA Class III. Th e [facility] clinical frailty scale is 5: Mildly [...] procedure was Urgent. The indication for ?the mechanical shop laborer visit is stable kn own CAD. Chest pain symptom assessment ?was: Typical Angina. ? Technique: ?A 6 SLFr sheath was inserted in the right radial artery utilizing the ?Seldinger technique. The right coronary artery was injected utilizing a ?IR 2.0 catheter. Coronary stent insertion was performed and the equipment ?utilized will be described in [facility] intervention summary section. 9,000 ?units [...] guiding catheter an d a 3.5 Fr [facility] [address] ??20 Mhz ?using Manual pullback. ??Imagin [...] A premounted 2.00 x 26 mm Hardeep Juab (TUCKER) ? was deployed wi a maximum [...] Wedelivered along 2.0 x 26 mm HARDEEP Juab ? TUCKER stent and p ositioned it [...] dose administered prior to arrival in the mechanical shop laborer. ?Recommended anti-platelet/anti- thrombotic regimen: ?Continue aspirin [...] may require ?modification of this regimen. C [facility] Interventional Cardiology for ?questions. ?The 1 [...] using a 2.0 x 26 mm HARDEEP Juab TUCKER stent. ?This completes the revasculariz ation [...] Procedure Note Vitaliy Nobles MD - 03/06/2022 [facility] Cardiac Catheterization/Intervention Re port Patient Name: Don Fatima Procedure Date: 01/30/2022 A #: [id number] Primary Physician: Vitaliy Nobles Case #: [id number] File Name: [id number] Catheterization Order Number: [id number] [facility] Final Report [place], [place] Patient Name: Don Fatima ID#: [...] e was Urgent. The indication for the mechanical shop laborer visit is stable known CAD. Chest [...] 1.5 guiding catheter and a 3.5 Fr [facility] [address] 20 Mhz using Manual pullback. Imaging [...] A premounted 2.00 x 26 mm Hardeep Juab (TUCKER) was deployed with a maximum inflation [...] along 2. 0 x 26 mm HARDEEP Juab TUCKER stent and positioned it at the [...] administered prior t o arrival in the mechanical shop laborer. Recommended anti-platelet/anti-thrombot ic regimen: Continue aspirin [...] using a 2.0 x 26 mm HARDEEP Juab TUCKER stent. This completes the revascularization of [...] Organization Address City/State/ZIP Code Phon e Number [employer] from Last 3 Months Insurance Payer Benefit Plan / Subscriber ID Effective Phone Address T ype Group Dates MEDICARE MEDICARE PART [id number] 2011-Prese [phone] [place] [address] [employer] [place] [place] V[place] [id number] 2018-Prese [phone] [address] [place] [address] [place] [address] Advance Directives Documents on File Type Date Recorded Patient Hvac Residential Service Technician Explanati on Advance Directives and Living 03/28/2013 [...] capacity to make decision: Yes Care Teams Supervisor Typesetting Relationship Specialty Start Date End Date Lovely Vicente MD PCP - General 04/16/[address] [place] [address]
--- OUTSIDE RECORDS SUMMARY | 2022-03-16 08:13 | XMS_ITS | Encounter Summary ---
:1945 Author Organization [facility] [place] [address] Care Team Providers Name Role Phone Lovely Vicente MD Primary Care Provider Reason for Referral Diagnostic Test (Routine) - New Request Specialty Diagnoses / Procedures Referred By Contact Refer red To Contact Cardiology Diagnoses Chronic systolic heart failure Liz Carrera PA [facility] Non-Inv Card Lab Procedures Echocardiogram Transthoracic [facility] [place] [address] [place] [address] Fax: Referral ID Status Reason Start Expiration Visits Visits Date Date Requested Authorized [id number] New Request Specialty 02/19/2022 02/19/2023 1 1 Service Requested Encounter Details Date Type Department Care Team Description 02/19/2022 Office Visit Cardiology at [facility] Liz Carrera, Chronic systolic heart [facility] [place] [address] Cardiology Dept [phone] [place], [place] [address] Social History Tobacco Use Types [...] per DC Summary - Admitted to [facility] on 12/08/21, transferred from [facility] [...] mg PO daily in place of Lasix. [place] is new for him and he will [...] regurgitation present. 07/07/2019 - 07/21/2019 Zio Patch Communicable Disease Specialist The patient had a minimum heart [...] 12.5 mg daily 6. Post-op atrial fibrillation [id number] (CHF, HTN, DM, vascular disease, thromboembolism) Eliquis 7. PAD 08/06/2017: Right 1st, 2nd, 3rd toe amputation 08/11/2017: Left??femoral arterial access, RLE??angiogram, Balloon angioplasty of R PT 10/25/2017: right [facility]liteal[facility]ped[facility] bypass at [facility] [...] Nobles MD [facility] [address] [place], [place] [address] (Wo rk) 05/28/2022 Appointment Cardiology Zulma Dolan MD [facility] [place], [place] [address] (Wo rk) 05/28/2022 Laboratory Appointment Lab 05/28/2022 Office Visit Cardiology Zulma Dolan MD [facility] [address] Liz Carrera PA [facility] [place] [address] 06/10/2022 Office Visit Dermatology Laura Scherer MD [facility] DR [address] [place], [place] [address] (Wo rk) Scheduled Orders Name Type Priority Associated Order Schedule Diagnoses Echocardiogram Echocardiography Routine Chronic systolic Expec vlad: Transthoracic heart failure 05/22/2022 (Approximate), Expires: 11/21/2022 documented as of this encounter Results (ABNORMAL) Basic Metabolic Panel (non-fasting) (02/19/2022 8:06 AM EDT) athologist Signature Glucose Lvl 139 65 - 199 [facility] mg/dL [facility] LABORATORY Comment: Diabetes: >=200 mg/dL plus symp toms BUN 31 (H) 10 - 20 mg/dL [facility] LABORATORY Creatinine 1.53 (H) 0.80 [...] 15 mmol/L [facility] LABORATORY Calcium 9.7 8.5 - [...] Organization Address City/State/[place] [address] (ABNORMAL) pro-Brain Natriuretic Peptide [...] Organization Address City/State/[place] [address] documented in this encounter Visit Diagnoses Diagnosis Chronic systolic heart failure documented in this encounter Care Teams Irb Compliance Coordinator Relationship Specialty Start Date End Date Lovely Vicente MD PCP - General 04/16/[address] [place] [address] [address] [place] [address] documented as of this encounter
--- OUTSIDE RECORDS SUMMARY | 2022-03-16 08:13 | XMS_ITS | Encounter Summary ---
:1945 [place] [address] Care Team Providers Name Role Phone Lovely Vicente MD Primary Care Provider Reason for Visit Reason Onset Date Comments Follow-up 03/06/2022 Dave Bueno Encounter Details Date Type Department Care Team Description 03/06/2022 Telephone Cardiology at [facility] Martha Comer, Follow-up ([facility] VAMSI Start) [place] [address] Social History Tobacco Use Types Packs/Day [...] pt had gotten his labs done at [facility] yesterday. Results received, scanned and entered into [...] MD [facility] [address] [place], [place] [address] (Wo rk) 05/28/2022 Appointment Cardiology Zulma Dolan MD [facility] [address] [place], [place] [address] (Wo rk) 05/28/2022 Laboratory Appointment Lab 05/28/2022 Office Visit Cardiology Zulma Dolan MD [facility] [place] [address] Liz Poole PA [facility] [place] [address] 06/10/2022 Office Visit Dermatology Laura Scherer MD [facility] [address] [place], [place] [address] (Wo rk) documented as of [...] on filedocumented in this encounter Care Teams Aircraft Electronics Technical Officer Relationship Specialty Start Date End Date Lovely Vicente MD PCP - General 04/16/[address] [place] [address] documented as of this encounter
--- OUTSIDE RECORDS SUMMARY | 2022-03-16 08:13 | XMS_ITS | Encounter Summary ---
:1945 Author Organization [facility] [address] Care Team Providers Name Role Phone Lovely Vicente MD Primary Care Provider Reason for Visit Reason Onset Date Comments Advice Only 01/28/2022 Encounter Details Date Type Department Care Team Description 01/28/2022 Telephone Cardiology at [facility] Chitra Angela, knurling machine [place] [address] Social History Tobacco Use Types Packs/Day [...] Fatima assists patient with medications. Number for phlebotomist medical lab assistant scheduling given and she will call them to verify this information Meds reviewed. As per our form from phlebotomist medical lab assistant Eliquis hold for 48 hours prior. Pt [...] Vitaliy Nobles MD [facility] [address] [place], [place] [address] (Wo rk) 05/28/2022 Appointment Cardiology Zulma Dolan MD [facility] [place], [place] [address] (Wo rk) 05/28/2022 Laboratory Appointment Lab 05/28/2022 Office Visit Cardiology Zulma Dolan MD [facility] [place] [address] Liz Poole PA [facility] [place] [address] 06/10/2022 Office Visit Dermatology Laura Scherer MD [facility] DR [address] [place], [place] [address] (Wo rk) documented as of this encounter Visit Diagnoses Not on filedocumented in this encounter Care Teams Head And Neck Surgeon Relationship Specialty Start Date End Date Lovely Vicente MD PCP - General 04/16/[address] [place] [address] documented as of this encounter
--- OUTSIDE RECORDS SUMMARY | 2022-03-16 08:13 | XMS_ITS | Encounter Summary ---
:1945 Author Organization [facility] Address [facility] [place] [address] Care Team Providers Name Role Phone Lovely Vicente MD Primary Care Provider Reason for Visit Auth/Cert Specialty Diagnoses / Procedures Referred By Contact Refer red To Contact Diagnoses ASCVD (arteriosclerotic cardiovascular disease) [I25.10] Vitaliy Nobles MD [facility] Procedures PRO PERC TRLUML CORONARY STENT W/ANGIO ONE ART/BRANCH CARDIAC CATHETERIZATION STENT PLACEMENT-SINGLE MAJOR CORONARY ARTERY OR BRANCH [facility] [place] [address] Referral ID Status Reason Start Date Expiration Date Visits Requ ested Visits Authorized [id number] 1 1 Encounter Details Date Type Department Care Team Description 01/30/2022 Hospital Encounter Short Stay Unit at Vitaliy Nobles, CVD (arteriosclerotic cardiovascular disease); Barbara Blue MD 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 Please follow up with your community liaison in the next 4-6 weeks. We have made a referral to cardiac rehab. Please see the attached instructions regarding care to your right wrist access site. AttachmentsThe following attachments cannot be sent through Care Everywhere. Coronary Angiogram: Post-op (Bengali)documented in this encounter Medications at Time of [...] Murray RN - 01/30/2022 4:54 PM EDT [facility] Short Stay Unit Discharge Note [...] recent PCI presenting for staged PCI to [facility]. The pt states he has [...] recent PCI presenting for staged PCI to [facility]. The indications, expected benefits, and [...] had referred him to cardiac rehab at [facility] last month per HF team. He was waiting until this intervention before starting the program. Reviewed managing angina /use of sl nitroglycerin. Given parameters for home exercise. 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 We discussed short walks several times per day. Will send [facility] his discharge summary from this admission. The patient should be contacted by the Program within 1- 2 weeks from discharge. Brief Op Note - Vitaliy Nobles MD - 01/30/2022 10:19 AM EDT Images from the original note were not included. [facility] [place] [address] CORONARY ANGIOGRAM AND PERCUTANEOUS CORONARY INTERVENTION REPORT Patient: Don Fatima : 1945 MR number: [id number] Date of Service: 01/30/2022 Warranty Administrator: Vitaliy Nobles MD Fellow: KEYON Elizabeth INDICATION: [...] a long 2.0 x 26 mm HARDEEP De Witt TUCKER stent and positioned it at the [...] using a 2.0 x 26 mm HARDEEP De Witt TUCKER stent. This completes the revascularization ofall [...] Nobles MD [facility] [address] [place] [address] (Wo rk) 05/28/2022 Appointment Cardiology Zulma Dolan MD [facility] INA [place] 0375 (Wo rk) 05/28/2022 Laboratory Appointment Lab 05/28/2022 Office Visit Cardiology TrudiZulma Knowles MD [facility] [place] [address] Liz Poole PA [facility] [place] [address] 06/10/2022 Office Visit Dermatology Laura Scherer MD [facility] ER DR [address]-DERMAT [place], [place] [address] (Wo rk) Scheduled Orders Name [...] EDT) athologist Signature Neutrophils % 71.8 % [facility] LABORATORY Neutr Abs (ANC) 3.96 1.70 - [facility] 6.10 [facility] x10(3)/[facility] LABORATORY Lymphocytes % 16.3 % [facility] LABORATORY Lymphocytes Abs 0.9 0.9 - 3.2 [facility] x10(3)/[facility] LABORATORY Monocytes % 10.0 % [facility] LABORATORY Monocyte Abs 0.6 0.3 - 0.9 [facility] x10(3)/[facility] LABORATORY Eosinophils % 0.5 % [facility] LABORATORY Eosinophils Abs 0.0 0.0 - 0.4 [facility] x10(3)/[facility] LABORATORY Basophils % 0.5 % [facility] LABORATORY Basophils Abs 0.0 0.0 - 0.1 [facility] x10(3)/[facility] LABORATORY Immature Gran % 0.90 [...] Organization Address City/State/[place] [address] (ABNORMAL) Hemogram (01/30/2022 2:12 PM EDT) Analysis Performed At Patho logist Time Signature WBC 5.5 4.0 - 9.5 [facility] x10(3)/[facility] LABORATORY RBC 4.30 (L) 4.58 - [place] 5.54 [facility] x10(6)/[facility] LABORATORY Hemoglobin 12.7 (L) 13.7 - [facility] 16.5 g/dL [facility] LABORATORY Hematocrit 39.4 (L) 40.5 - [place] 48.5 % [facility] LABORATORY MCV 91.6 82.9 - [facility] 93.1 [facility] LABORATORY MCH 29.5 27.5 - [place] 32.1 pg [facility] LABORATORY MCHC 32.2 32.0 - [place] 35.7 g/dL [facility] LABORATORY Platelets 172 145 - 357 [facility] x10(3)/[facility] LABORATORY RDWSD 54.5 (H) 36.0 - [facility] RYAN 45.0 [facility] LABORATORY RDWCV 16.4 (H) 11.4 - [facility] RYAN 13.8 % [facility] LABORATORY MPV 9.2 7.6 - 12.9 [facility] LABORATORY nRBC % Auto 0.0 % [facility] LABORATORY nRBC Abs Auto 0.000 0.000 - [facility] 0.000 [facility] x10(3)/[facility] LABORATORY Specimen Anatomical Collection Method Collection Time Receive d Time (Source) Location / / Volume Laterality Blood 01/30/2022 2:12 PM 2 2:37 EDT PM EDT Resulting Agency Comment Spec In Lab Eddi Elizabeth Jr., MD HEMATOLOGY ORDERABLES Performing Organization Address City/State/[place] [address] (ABNORMAL) Basic Metabolic Panel (non-fasting) (01/30/2022 2:12 PM EDT) P athologist Signature Glucose Lvl 163 65 - 199 [facility] mg/dL [facility] LABORATORY Comment: Diabetes: >=200 mg/dL plus symp toms BUN 30 (H) 10 - 20 mg/dL [facility] LABORATORY Creatinine 1.47 0.80 - 1.50 mg/dL [facility] LABORATORY Sodium 140 135 - 145 mmol/L [facility] LABORATORY Potassium 4.2 3.5 - 5.0 mmol/L [facility] [...] 15 mmol/L [facility] LABORATORY Calcium 9.2 8.5 - 10.5 mg/dL [facility] LABORATORY Estimated GFR 49 (L) >=60 [...] Organization Address City/State/[place] [address] POCT Glucose (01/30/2022 1:41 PM EDT) athologist Signature POC Glucose 148 65 - 199 [facility] mg/dL [facility] LABORATORY Comment: Supplemental ranges: <140 mg/dL before meals <180 mg/dL all other times of the day Specimen Anatomical Collection Method Collection Time Receive d Time (Source) Location / / Volume Laterality Blood 01/30/2022 1:41 PM 1:41 EDT PM EDT Vitaliy Sandra Nobles MD POINT OF CARE TEST ORDERABLE S Performing Organization Address City/State/ZIP Code Phon e Number [address] POCT Glucose (01/30/2022 10:48 AM EDT) P athologist Signature POC Glucose 193 65 - 199 [facility] mg/dL [facility] LABORATORY Comment: Supplemental ranges: <140 mg/dL before meals <180 mg/dL all other times of the day Specimen Anatomical Collection Method Collection Time Receive d Time (Source) Location / / Volume Laterality Blood 01/30/2022 10:48 01/30/2022 AM EDT 10:48 AM EDT Vitaliy Sandra Nobles MD POINT OF CARE TEST ORDERABLE S Performing Organization Address City/State/ZIP [place] [address] EKG 12 Lead (01/30/2022 10:33 AM EDT) Component Value Ref Range Test Analysis Performed Pathologis t Method Time At Signature Ventricular rate 64 BPM MUSE SYSTEM Atrial Rate 64 BPM MUSE SYSTEM P-R Interval 162 ms MUSE SYSTEM QRS Duration 94 ms MUSE SYSTEM Q-T Interval 422 ms MUSE SYSTEM QTC Calculated 435 ms MUSE SYSTEM (Bezet) Calculated P [place] 41 degrees MUSE SYSTEM Calculated R [place] -27 degrees MUSE SYSTEM Calculated T [place] 104 degrees MUSE SYSTEM INTERPRETATION Normal sinus rhythm MUSE SYSTEM Anterolateral infarct (cited on or before 09-DEC-2021) Abnormal ECG When compared with ECG of 10-DEC-2021 11:17, No significant change was found Confirmed by Gary Perez ([id number]) on 01/30/2022 5:57:5 2 PM Specimen Anatomical [...] ? Procedure Date: 01/30/2022 ? A #: [id number] ? Primary Physician: Vitaliy Nobles ? Case #: [id number] ? File Name: [id number] ? Catheterization Order Number: [id number] ? [facility] ? Final Report [place], [place] ? Patient Name: ? Don E. Stewa rt ? ID#: ?[id number] ? : ?1945 ? Procedure Date: ? [...] patient was ?designated as ASA Class III. [facility] clinical frailty scale is 5: [...] procedure was Urgent. 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 [...] guiding catheter an d a 3.5 Fr [place] [facility] [address] ??20 Mhz ?using Manual pullback. ??Imagin [...] A premounted 2.00 x 26 mm Hardeep De Witt (TUCKER) ? was deployed wi a maximum [...] Wedelivered along 2.0 x 26 mm HARDEEP De Witt ? TUCKER stent and p ositioned it [...] dose administered prior to arrival in the cook house laborer. ?Recommended anti-platelet/anti- thrombotic regimen: ?Continue aspirin [...] ?modification of this regimen. C [facility] Interventional Cardiology for ?questions. ?The 1 year [...] using a 2.0 x 26 mm HARDEEP De Witt TUCKER stent. ?This completes the revasculariz ation [...] Procedure Note Vitaliy Nobles MD - 03/06/2022 [facility] Cardiac Catheterization/Intervention Re port Patient Name: Don Fatima Procedure Date: 01/30/2022 A #: [id number] Primary Physician: Vitaliy Nobles Case #: [id number] File Name: [id number] Catheterization Order Number: [id number] [facility] [employer] [facility] Final Report [place], [place] Patient Name: Don Fatima ID#: [...] e was Urgent. The indication for the cook house laborer visit is stable known CAD. Chest [...] 150cc of Iso-Rudy were opened, 124cc of Iso-Ruyd were administe red and 26cc of Iso-Rudy [...] 1.5 guiding catheter and a 3.5 Fr [place] [facility] [address] 20 Mhz using Manual pullback. Imaging [...] A premounted 2.00 x 26 mm Hardeep De Witt (TUCKER) was deployed with a maximum inflation [...] along 2. 0 x 26 mm HARDEEP De Witt TUCKER stent and positioned it at the [...] administered prior t o arrival in the cook house laborer. Recommended anti-platelet/anti-thrombot ic regimen: Continue aspirin [...] using a 2.0 x 26 mm HARDEEP De Witt TUCKER stent. This completes the revascularization of [...] 199 [facility] mg/dL [facility] LABORATORY Comment: Supplemental ranges: <140 [...] [facility]/ZIP [place] [address] (ABNORMAL) POCT Glucose (01/30/2022 8:10 AM EDT) athologist Signature POC Glucose 224 (H) 65 - 199 [facility]dL [facility] LABOR[facility]ORY Comment: Supplemental ranges: <140 [...] [facility]/ZIP [place] [address] documented in this encounter Visit Diagnoses Diagnosis ASCVD (arteriosclerotic cardiovascular d isease) Unspecified cardiovascular disease 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 ASHD (arteriosclerotic heart disease) Coronary atherosclerosis of unspecified type of vessel, [place] or graft ASCVD (arteriosclerotic cardiovascular d isease) Unspecified cardiovascular disease documented in this encounter Admitting Diagnoses Diagnosis CAD (coronary artery disease) Coronary atherosclerosis of unspecified type of vessel, [place] or graft documented in this encounter Administered [...] Procedure), Routine niCARdipine (Cardene) (100 mcg/mL) dilution (MACHINE LOAD CLERK) (CANCELED ) 0927 (Given - Provider: [...] (Intra-Procedure) documented in this encounter Care Teams Food And Beverage Order Clerk Relationship Specialty Start Date End Date Lovely Vicente MD PCP - General 04/16/[address] [place] [address] documented as of this encounter
--- OUTSIDE RECORDS SUMMARY | 2022-03-16 08:13 | XMS_ITS | Encounter Summary ---
:1945 Author Organization [facility] [place] [address] Care Team Providers Name Role Phone Lovely Vicente MD Primary Care Provider Encounter Details Date Type Department Care Team Description 12/15/2021 Telephone Cardiology at [facility] Barbara Mera, [place] [address] Social History Tobacco Use Types Packs/Day [...] MD [facility] DR TADE[address] [place], [place] 0375 (Wo rk) 05/28/2022 Appointment Cardiology Zulma Dolan MD [facility] [place], [place] 0375 (Wo rk) 05/28/2022 Laboratory Appointment Lab 05/28/2022 Office Visit Cardiology Zulma Dolan MD [facility] [place] [address] Liz Poole PA [facility] [place] [address] 06/10/2022 Office Visit Dermatology Laura Scherer MD [facility] DR [address] [place], [place] 0375 (Wo rk) documented as of this encounter Visit Diagnoses Not on filedocumented in this encounter Care Teams Airline Operations Agent Relationship Specialty Start Date End Date Lovely Vicente MD PCP - General 04/16/[address] [place] [address] documented as of this encounter
--- OUTSIDE RECORDS SUMMARY | 2022-03-16 08:13 | XMS_ITS | Encounter Summary ---
:1945 Author Organization [facility] [place] [address] Care Team Providers Name Role Phone Lovely Vicente MD Primary Care Provider Encounter Details Date Type Department Care Team Description 02/23/2022 Refill Cardiology at [facility] Liz Poole PA [facility] [place] [address] Cardiology Dept [phone] [place], [place] 0375 (Wo rk) Social History Tobacco [...] Oneill RPH Transfer of Services Don Fatima [address] [place] [address] [place] [address] Telephone Information: Work Phone Not on file. The [facility] has received a prescription for Entresto for patient Mr. Don Fatima 76 y.o. (1945). The patient requests the prescription to be filled with [facility]. We spoke to patient to notify of this change and to provide number to reach the new filling pharmacy. A copyof patient's medication profile was offered to the accepting pharmacy. Additional instructions provided to patient about transfer: no The patient has been advised to call the [facility] at [phone] with any questionsor concerns on this referral. Thank you, Oxana Oneill RPH 02/23/22 4:26 PM Patient understands no changes to current drug regimen were made at this time. documented in this encounter Plan of Treatment Upcoming Encounters Date Type Specialty Care Team Description 03/26/2022 Office Visit Cardiology Vitaliy Nobles MD [facility] [address] [place], [place] 0375 (Wo rk) 05/28/2022 Appointment Cardiology Zulma Dolan MD [facility] [place], [place] 0375 (Wo rk) 05/28/2022 Laboratory Appointment Lab 05/28/2022 Office Visit Cardiology Zulma Dolan MD [facility] [place] [address] Liz Poole PA [facility] [place] [address] 06/10/2022 Office Visit Dermatology Laura Scherer MD [facility] DR TE[address]MAT [place], [place] 0375 (Wo rk) documented as of this encounter Visit Diagnoses Not on filedocumented in this encounter Care Teams Senior Corporate Strategy Manager Relationship Specialty Start Date End Date Lovely Vicente MD PCP - General 04/16/15 [facility] [address] [place] [address] documented as of this encounter
--- OUTSIDE RECORDS SUMMARY | 2022-03-16 08:13 | XMS_ITS | Encounter Summary ---
:1945 [place] [address] Care Team Providers Name Role Phone Lovely Vicente MD Primary Care Provider Reason for Visit Reason Onset Date Comments Follow-up 02/26/2022 Entresto start Encounter Details Date Type Department Care Team Description 02/26/2022 Telephone Cardiology at [facility] Martha Comer, Follow-up ([facility] RN start) [place] [address] Social History Tobacco Use Types Packs/Day [...] on 03/05/22 Getting labs done at : [facility] Order e-faxed by STEPHANIE Poole on 02/24/22. /pt to call on 03/05/22 letting us know to get the BMP results from [facility]. Nursing to get results and contact pt to see how he is tolerating the Entresto. They are to call sooner with any questions/concerns. documented in this encounter Plan of Treatment Upcoming Encounters Date Type Specialty Care Team Description 03/26/2022 Office Visit Cardiology Vitaliy Nobles MD [facility] DR T[address] [place], [place] 0375 (Wo rk) 05/28/2022 Appointment Cardiology Zulma Dolan MD [facility] [place], [place] 0375 (Wo rk) 05/28/2022 Laboratory Appointment Lab 05/28/2022 Office Visit Cardiology Zulma Dolan MD [facility] [place] [address] Liz Poole PA [facility] [place] [address] 06/10/2022 Office Visit Dermatology Laura Scherer MD [facility] DR TE[address] GR-DERMAT [place], [place] 0375 (Wo rk) documented as of this encounter Visit Diagnoses Not on filedocumented in this encounter Care Teams Melting Supervisor Relationship Specialty Start Date End Date Lovely Vicente MD PCP - General 04/16/[address] [place] [address] documented as of this encounter
--- OUTSIDE RECORDS SUMMARY | 2022-03-16 08:13 | XMS_ITS | Encounter Summary ---
:1945 Author Organization [place] [address] Care Team Providers Name Role Phone Lovely Vicente MD Primary Care Provider Reason for Visit Reason Onset Date Comments Medication Refill 12/12/2021 Torsemide Encounter Details Date Type Department Care Team Description 12/12/2021 Refill Cardiology at [facility] Janneth Padilla, Medication Refill [facility] STEPHANIE (Torsemide) [place] [address] CARDIOLOGY DEPT. [place], [place] 0375 (Wo rk) Social History Tobacco [...] MD [facility] DR [place]LE [place], [place] 0375 (Wo rk) 05/28/2022 Appointment Cardiology Zulma Dolan MD [facility] [address] [place], [place] 0375 (Wo rk) 05/28/2022 Laboratory Appointment Lab 05/28/2022 Office Visit Cardiology Zulma Dolan MD [facility] [place] [address] Liz Poole PA [facility] [place] [address] 06/10/2022 Office Visit Dermatology Laura Scherer MD [facility] DR TEJA GR-DERMAT [place], [place] 0375 (Wo rk) documented as of this encounter Visit Diagnoses Diagnosis Chronic systolic heart failure documented in this encounter Care Teams Tubular Riveter Relationship Specialty Start Date End Date Lovely Vicente MD PCP - General 04/16/[address] [place] [address] documented as of this encounter
--- OUTSIDE RECORDS SUMMARY | 2022-03-16 08:13 | XMS_ITS | Encounter Summary ---
:1945 Author Organization [facility] Address [facility] [place] [address] Care Team Providers Name Role Phone Lovely Vicente MD Primary Care Provider Reason for Visit Reason Onset Date Comments Medication Refill 03/06/2022 Metoprolol Succinate Encounter Details Date Type Department Care Team Description 03/06/2022 Refill Cardiology at [facility] Liz Poole PA Medication Refill [facility] ([place] toprolol Succinate) [place] [address] Cardiology Dept [phone] [place], [place] [address] (Wo rk) Social History Tobacco [...] Nobles MD [facility] DR CARLYLE [place], [place] [address] (Wo rk) 05/28/2022 Appointment Cardiology Zulma Dolan MD [facility] [address] [place] 0[address] (Wo rk) 05/28/2022 Laboratory Appointment Lab 05/28/2022 Office Visit Cardiology Zulma Dolan MD [facility] [place] [address] Liz Poole PA [facility] [place] [address] 06/10/2022 Office Visit Dermatology Laura Scherer MD [facility] ER DR TEJA GR-DERMAT [place], [place] 0375 (Wo rk) documented as of this encounter Visit Diagnoses Diagnosis Chronic systolic heart failure Cardiomyopathy, ischemic Other specified forms of chronic ischemi c heart disease documented in this encounter Care Teams Third Rail Installer Relationship Specialty Start Date End Date Lovely Vicente MD PCP - General 04/16/[address] [place] [address] documented as of this encounter
--- OUTSIDE RECORDS SUMMARY | 2022-03-16 08:13 | XMS_ITS | Encounter Summary ---
:1945 [place] [address] Care Team Providers Name Role Phone Lovely Vicente MD Primary Care Provider Encounter Details Date Type Department Care Team Description 12/30/2021 Notes Only Cardiac Rehab [facility] Linnea Deluca, [facility] [place] [address] Social History Tobacco Use Types Packs/Day [...] Failure team. DX: HFrEF. Referral placed to [facility] documented in this encounter Plan of Treatment Upcoming Encounters Date Type Specialty Care Team Description 03/26/2022 Office Visit Cardiology Vitaliy Nobles MD [facility] ER DR [place], [place] [address] (Wo rk) 05/28/2022 Appointment Cardiology Zulma Dolan MD [facility] [place], [place] 0375 (Wo rk) 05/28/2022 Laboratory Appointment Lab 05/28/2022 Office Visit Cardiology Zulma Dolan MD [facility] [place] [address] Liz Poole PA [facility] [place] [address] 06/10/2022 Office Visit Dermatology Laura Scherer MD [facility] [address]DERMAT [place], [place] 0[address] (Wo rk) documented as of this encounter Visit Diagnoses Not on filedocumented in this encounter Care Teams Production Line Welder Relationship Specialty Start Date End Date Lovely Vicente MD PCP - General 04/16/[address] [place] [address] documented as of this encounter
--- OUTSIDE RECORDS SUMMARY | 2022-03-16 08:13 | XMS_ITS | Encounter Summary ---
:1945 Author Organization [facility] Address [facility] [place] [address] Care Team Providers Name Role Phone Lovely Vicente MD Primary Care Provider Reason for Visit Reason Comments Prior Authorization Entresto 24-26mg tablets Encounter Details Date Type Department Care Team Description 02/20/2022 Specialty Pharm[place] [facility] [place]amberto Smith Prior Authorization [facility] J (Entresto 24-26mg Drive tablets) [place] [id number] Social History Tobacco Use Types Packs/Day Years [...] Don Fatima Patient : 1945 Patient Address: [address] [place] [address] [place] [address] (home) Medication Name: ENTRESTO 24 MG-26 MG TABLET Medication ID: [id number] [place] [facility] [place] 4A Patient Location Comment: Medication Strength Frequency Requested: Entresto 24-26mg tablets / One tablet twice daily Qty/Day Supply: New Start: New to Therapy Diagnosis & ICD-10 Code: Chronic systolic heart failure, I50.22 Subscriber Insurance: [employer] [facility] Subscriber Insurance Comment: Fax: Physician: LZI CARRERA Physician Comment : PA Status: NO PA REQUIRED Insurance mandated Pharmacy: Unknown [facility]able at [facility]: Yes Insurance requirements/notes: None Copay: $119.01 (goes to coverage gap/odalys monteiro) Copay assistance: [employer] Copay assistance comment: If cost isn't affordable, then we'll suggest enrollment in the currently open [facility] Heart Failure zoila, which provides up to $1000 in copay assistance. If zoila closes, or doesn't work out, then the patient can attempt enrollment in the gastroenterology nurse assistance program, the [employer] Patient [employer] (NPAF). At which point we'd refer to [facility] for assistance with enrollment. [...] Vitaliy Nobles MD [facility] [address] [place], [place] [address] (Wo rk) 05/28/2022 Appointment Cardiology Zulma Dolan MD [facility] [address] [place] [address] (Wo rk) 05/28/2022 Laboratory Appointment Lab 05/28/2022 Office Visit Cardiology Zulma Dolan MD [facility] [place] [address] Liz Carrera PA [facility] [place] [address] 06/10/2022 Office Visit Dermatology Laura Scherer MD [facility] ER DR TEJA [address]MAT [place], [place] [address] (Wo rk) documented as of this encounter Visit Diagnoses Not on filedocumented in this encounter Care Teams Branch Director Relationship Specialty Start Date End Date Lovely Vicente MD PCP - General 04/16/[address] [place] [address] documented as of this encounter
--- OUTSIDE RECORDS SUMMARY | 2022-03-16 08:13 | XMS_ITS | Encounter Summary ---
:1945 Author Organization [facility] [place] [address] Care Team Providers Name Role Phone Lovely Vicente MD Primary Care Provider Encounter Details Date Type Department Care Team Description 12/25/2021 Laboratory Appointment Lab 3L [facility] [place] [id number] Social History Tobacco Use Types Packs/Day Years [...] MD [facility] [address] T[address] [place], [place] [address] (Wo rk) 05/28/2022 Appointment Cardiology Zulma Dolan MD [facility] [address] [place] 0[address] (Wo rk) 05/28/2022 Laboratory Appointment Lab 05/28/2022 Office Visit Cardiology Zulma Dolan MD [facility] [place] [address] Liz Poole PA [facility] [place] [address] 06/10/2022 Office Visit Dermatology Laura Scherer MD [facility] ER DR [address] [place]LOGY [place], [place] [address] (Wo rk) documented as of [...] (ABNORMAL) Differential, Automated (12/25/2021 7:46 AM EDT) [facility] Method Time Signature Neutrophils % 82.6 % [facility] LABORATORY Neutr Abs (ANC) 9.37 (H) 1.70 - [facility] 6.10 [facility] x10(3)/[facility] L LABORATORY Lymphocytes % 7.1 % [facility] Lymphocytes Abs 0.8 (L) 0.9 - 3.2 [facility] x10(3)/[facility] LABORATORY Monocytes % 8.8 % [facility] Monocyte Abs 1.0 (H) 0.3 - 0.9 [facility] x10(3)/[facility] LABORATORY Eosinophils % 0.4 % [facility] Eosinophils Abs 0.0 0.0 - 0.4 [facility] x10(3)/[facility] LABORATORY Basophils % 0.4 % [facility]OR[facility] Basophils Abs 0.0 0.0 - 0.1 [facility] x10(3)/[facility] LABORATORY Immature Gran % 0.70 % [facility] [...] Organization Address City/State/[place] [address] (ABNORMAL) Hemogram (12/25/2021 7:46 AM EDT) Analysis Performed At Patho logist Time Signature WBC 11.4 (H) 4.0 - 9.5 [facility] x10(3)/[facility] LABORATORY RBC 4.23 (L) 4.58 - [facility] RYAN 5.54 [facility] x10(6)/[facility] LABORATORY Hemoglobin 12.3 (L) 13.7 - [facility] 16.5 g/dL [facility] LABORATORY Hematocrit 37.7 (L) 40.5 - [facility] RYAN 48.5 % [facility] MCV 89.1 82.9 - [facility] 93.1 fL [facility] LABORATORY MCH 29.1 27.5 - [place] RYAN 32.1 pg [facility] LABORATORY MCHC 32.6 32.0 - [facility] 35.7 g/dL [facility] LABORATORY Platelets 215 145 - 357 [facility] x10(3)/[facility] LABORATORY RDWSD 49.8 (H) 36.0 - [facility] 45.0 [facility] LABORATORY RDWCV 15.2 (H) 11.4 - [facility] 13.8 % [facility] LABORATORY MPV 9.2 7.6 - 12.9 [facility] LABORATORY nRBC % Auto 0.0 % [facility] LABORATORY nRBC Abs Auto 0.000 0.000 - [facility] 0.000 [facility] x10(3)/[facility] LABORATORY Specimen Anatomical Collection Method Collection Time Receive d Time (Source) Location / / Volume Laterality Blood 12/25/2021 7:46 AM 8:01 EDT AM EDT Resulting Agency Comment Spec In Lab Liz BROWN HEMATOLOGY ORDERABLES Performing Organization Address City/State/[place] [address] (ABNORMAL) Basic Metabolic Panel (non-fasting) (12/25/2021 7:46 AM EDT) athologist Signature Glucose Lvl 272 (H) 65 - 199 [facility] mg/dL [facility] LABORATORY Comment: Diabetes: >=200 mg/dL plus symp toms BUN 62 (H) 10 - 20 mg/dL [facility] LABORATORY Creatinine 1.81 (H) 0.80 - 1.50 mg/dL [facility] LABORATORY Sodium 134 (L) [...] Organization Address City/State/[place] [address] (ABNORMAL) pro-Brain Natriuretic Peptide (12/25/2021 7:46 AM EDT) P athologist Signature ProBNP 1,380 (H) <=124 [facility]mL [facility] LABOR[facility]ORY Specimen Anatomical Collection Method Collection Time Receive d Time (Source) Location / / Volume Laterality Blood 12/25/2021 7:46 AM 2 8:01 EDT AM EDT Resulting Agency Comment Spec In Lab Zulma Plunkett MD CHEMISTRY ORDERABLES Performing Organization Address City/State/[place] [address] documented in this encounter Visit Diagnoses Diagnosis Chronic systolic heart failure documented in this encounter Care Teams Adhesive Bandage Making Operator Relationship Specialty Start Date End Date Lovely Vicente MD PCP - General 04/16/[address] [place] [address] documented as of this encounter
--- OUTSIDE RECORDS SUMMARY | 2022-03-16 08:13 | XMS_ITS | Encounter Summary ---
:1945 Author Organization [facility] [place] [address] Care Team Providers Name Role Phone Lovely Vicente MD Primary Care Provider Reason for Visit Reason Onset Date Comments Follow-up 02/23/2022 Medication adjustmen t and new med Encounter Details Date Type Department Care Team Description 02/23/2022 Telephone Cardiology at [facility] Martha Comer, Follow-up ([facility] RN adjustbrandon t and new med) [place] [address] Social History Tobacco Use Types Packs/Day [...] the order for BMP and sent to [facility]. will call [facility] to make an appointment for next [...] tablet) daily. She will correct his pill demand planner to the new dose. Will need to check with STEPHANIE Poole about repeat BMP to recheck K+ level. If yes he will get the test done at [facility]. They are aware that he will need to make an appt at [facility] to get the test done. Entresto: [...] if he qualifies for assistance from the [employer]. She is thankful for the assistance, as he is taking insulin that is very expensive too. Instructed to call this typewriter operator automatic, if he does qualify for assistance from [employer] and that he has gotten the medication [...] MD [facility] [address] [place], [place] [address] (Wo rk) 05/28/2022 Appointment Cardiology Zulma Dolan MD [facility] [place], [place] [address] (Wo rk) 05/28/2022 Laboratory Appointment Lab 05/28/2022 Office Visit Cardiology Zulma Dolan MD [facility] [place] [address] Liz Poole PA [facility] [place] [address] 06/10/2022 Office Visit Dermatology Laura Scherer MD [facility] DR [address] [place], [place] [address] (Wo rk) documented as of this encounter Visit Diagnoses Not on filedocumented in this encounter Care Teams Perinatal Director Relationship Specialty Start Date End Date Lovely Vicente MD PCP - General 04/16/[address] [place] [address] documented as of this encounter
--- OUTSIDE RECORDS SUMMARY | 2022-03-16 08:13 | XMS_ITS | Encounter Summary ---
:1945 [place] [address] Care Team Providers Name Role Phone Lovely Vicente MD Primary Care Provider Encounter Details Date Type Department Care Team Description 12/25/2021 Office Visit Cardiology at [facility] Liz Poole, Chronic systolic heart [facility] [place] [address] Cardiology Dept [phone] [place], [place] [address] Social History Tobacco Use Types [...] As per DC Summary - Admitted to [facility] on 12/08/21, transferred from [facility], respiratory distress with hypoxia 86% on [...] mg PO daily in place of Lasix. [place] is new for him and he will [...] Antiplatelet (DAPT) Recommendations above ? TTE from [facility] 12/08/21 ?? 07/28/2019 Echocardiogram: SUMMARY: 1. [...] regurgitation present. 07/07/2019 - 07/21/2019 Zio Patch Bottom Sprayer The patient had a minimum heart rate [...] hyperkalemia 4.9 today 6. Post-op atrial fibrillation [id number] (CHF, HTN, DM, vascular disease, thromboembolism) [...] Nobles MD [facility] CARDIOLOGY [place], [place] [address] (Wo rk) 05/28/2022 Appointment Cardiology Zulma Dolan MD [facility] [place], [place] [address] (Wo rk) 05/28/2022 Laboratory Appointment Lab 05/28/2022 Office Visit Cardiology Zulma Dolan MD [facility] [place] [address] Liz Poole PA [facility] [place] [address] 06/10/2022 Office Visit Dermatology Laura Scherer MD [facility] DR [address] [place], [place] [address] (Wo rk) documented as of this encounter Results (ABNORMAL) pro-Brain Natriuretic Peptide (12/25/2021 7:46 AM EDT) athologist Signature ProBNP 1,380 (H) <=124 [facility] LABORATORY Specimen Anatomical Collection Method Collection Time Receive d Time (Source) Location / / Volume Laterality Blood 12/25/2021 7:46 AM 8:01 EDT AM EDT Resulting Agency Comment Spec In Lab Zulma Plunkett MD CHEMISTRY ORDERABLES Performing Organization Address City/State/[place] [address] (ABNORMAL) Basic Metabolic Panel (non-fasting) (12/25/2021 7:46 AM EDT) athologist Signature Glucose Lvl 272 (H) 65 - 199 [facility] mg/dL [facility] LABORATORY Comment: Diabetes: >=200 mg/dL plus symp toms BUN 62 (H) 10 - 20 mg/dL [facility] LABORATORY Creatinine 1.81 (H) 0.80 - 1.50 mg/dL [facility] [...] Chloride 95 (L) 98 - 107 mmol/L [facility] LABORATORY CO2 28 22 - 31 mmol/L [facility] LABORATORY Anion Gap 11 5 - 15 mmol/L [facility] LABORATORY Calcium 9.4 8.5 - 10.5 mg/dL [facility] LABORATORY Estimated GFR 36 (L) >=60 mL/min/1.73 m?? [facility] LABORATORY Comment: This patient? [...] Address City/State/[place] [address] documented in this encounter Visit Diagnoses Diagnosis Chronic systolic heart failure documented in this encounter Care Teams Hotbed Transfer Operator Relationship Specialty Start Date End Date Lovely Vicente MD PCP - General 04/16/[address] [place] [address] documented as of this encounter
--- OUTSIDE RECORDS SUMMARY | 2022-03-16 08:13 | XMS_ITS | Encounter Summary ---
:1945 Author Organization [place] [address] Care Team Providers Name Role Phone Lovely Vicente MD Primary Care Provider Reason for Visit Reason Onset Date Comments Medication Refill 03/11/2022 Encounter Details Date Type Department Care Team Description 03/06/2022 Refill Cardiology at [facility] [place] Liz Poole PA Medication Refill [facility] naima [facility] [place] [address] Cardiology Dept [phone] [place], [place] [address] (Wo rk) Social History Tobacco [...] Nobles MD [facility] [address] [place] [address] (Wo rk) 05/28/2022 Appointment Cardiology Zulma Dolan MD [facility] Dr [place], [place] [address] (Wo rk) 05/28/2022 Laboratory Appointment Lab 05/28/2022 Office Visit Cardiology Zulma Dolan MD [facility] [place] [address] Liz Poole PA [facility] [place] [address] 06/10/2022 Office Visit Dermatology Laura Scherer MD [facility] DR [address] [place], [place] [address] (Wo rk) documented as of this encounter Visit Diagnoses Not on filedocumented in this encounter Care Teams Senior Budget Analyst Relationship Specialty Start Date End Date Lovely Vicente MD PCP - General 04/16/15 [facility] [address] [place] [address] documented as of this encounter
--- OUTSIDE RECORDS SUMMARY | 2022-03-16 08:13 | XMS_ITS | Encounter Summary ---
:1945 Author Organization [facility] Address [facility] [place] [address] Care Team Providers Name Role Phone Lovely Vicente MD Primary Care Provider Reason for Visit Auth/Cert Specialty Diagnoses / Procedures Referred By Contact Refer red To Contact Diagnoses ASCVD (arteriosclerotic cardiovascular disease) [I25.10] Vitaliy Nobles MD [facility] Procedures PRO PERC TRLUML CORONARY STENT W/ANGIO ONE ART/BRANCH CARDIAC CATHETERIZATION STENT PLACEMENT-SINGLE MAJOR CORONARY ARTERY OR BRANCH [facility] [place] [address] Referral ID Status Reason Start Date Expiration Date Visits Requ ested Visits Authorized [id number] 1 1 Encounter Details Date Type Department Care Team Description 01/30/2022 Surgery Household Appliance Installer Asa Coulter MD CARDIAC CATHETERIZATION [facility] [place] [address] [place] [address] [phone] (Wo rk) Social History Tobacco Use Types [...] and Clopidogrel. Please follow up with your director center in the next 4-6 weeks. We have made a referral to cardiac rehab. Please see the attached instructions regarding care to your right wrist access site. AttachmentsThe following attachments cannot be sent through Care Everywhere. Coronary Angiogram: Post-op (Kyrgyz)documented in this encounter Medications at Time of [...] RN - 01/30/2022 4:54 PM EDT [facility] Short Stay Unit Discharge Note All [...] for staged PCI to [facility]. The pt states he has been ok. [...] for staged PCI to [facility]. The indications, expected benefits, and potential risks [...] original note were not included. [facility] [place] [address] CORONARY ANGIOGRAM AND PERCUTANEOUS CORONARY INTERVENTION REPORT Patient: Don Fatima : 1945 MR number: [id number] Date of Service: 01/30/2022 Label Pinker: Vitaliy Nobles MD Fellow: KEYON Elizabeth INDICATION: [...] a long 2.0 x 26 mm [place] TUCKER stent and positioned it at the [...] using a 2.0 x 26 mm [place] TUCKER stent. This completes the revascularization ofall [...] MD [facility] [address] CARLYLE [place] [address] (Wo rk) 05/28/2022 Appointment Cardiology Zulma Dolan MD [facility] I[place] 0[address] (Wo rk) 05/28/2022 Laboratory Appointment Lab 05/28/2022 Office Visit Zulma Garrison [place] [address] Liz Poole PA [facility] [place] [address] 06/10/2022 Office Visit Dermatology Laura Scherer MD [facility] ER DR LEZAMA RD-DERMAT [facility] [place], [place] [address] (Wo rk) Scheduled Orders Name [...] P athologist Signature Neutrophils % 71.8 % [facility] LABORATORY Neutr Abs (ANC) 3.96 1.70 - [facility] 6.10 [facility] x10(3)/[facility] LABORATORY Lymphocytes % 16.3 % [facility] Lymphocytes Abs 0.9 0.9 - 3.2 [facility] x10(3)/[facility] LABORATORY Monocytes % 10.0 % [facility] Monocyte Abs 0.6 0.3 - 0.9 [facility] x10(3)/[facility] LABORATORY Eosinophils % 0.5 % [facility] Eosinophils Abs 0.0 0.0 - 0.4 [facility] x10(3)/[facility] LABORATORY Basophils % 0.5 % [facility] LABOR[facility] Basophils Abs 0.0 0.0 - 0.1 [place] 749440(3)/[facility] LABORATORY Immature Gran % 0.90 % [...] Organization Address City/State/[place] [address] (ABNORMAL) Hemogram (01/30/2022 2:12 PM EDT) Analysis Performed At Patho logist Time Signature WBC 5.5 4.0 - 9.5 [facility] x10(3)/[facility] LABORATORY RBC 4.30 (L) 4.58 - [place] 5.54 [facility] x10(6)/[facility] LABORATORY Hemoglobin 12.7 (L) 13.7 - [place] 16.5 g/dL [facility] LABORATORY Hematocrit 39.4 (L) 40.5 - [place] 48.5 % [facility] LABORATORY MCV 91.6 82.9 - [facility] 93.1 [facility] LABORATORY MCH 29.5 27.5 - [place] 32.1 pg [facility] MCHC 32.2 32.0 - [place] ZHA[place] 35.7 g/dL [facility] Platelets 172 145 - 357 [facility] x10(3)/[facility] LABORATORY RDWSD 54.5 (H) 36.0 - [facility] 45.0 [facility] LABORATORY RDWCV 16.4 (H) 11.4 - [facility] 13.8 % [facility] LABORATORY MPV 9.2 7.6 - 12.9 [facility] LABORATORY nRBC % Auto 0.0 % [facility]OR[facility] nRBC Abs Auto 0.000 0.000 - [facility] 0.000 [facility] x10(3)/[facility] LABORATORY Specimen Anatomical Collection Method Collection Time Receive d Time (Source) Location / / Volume Laterality Blood 01/30/2022 2:12 PM 2 2:37 EDT PM EDT Resulting Agency Comment Spec In Lab Eddi Elizabeth Jr., MD HEMATOLOGY ORDERABLES Performing Organization Address City/State/[place] [address] (ABNORMAL) Basic Metabolic Panel (non-fasting) (01/30/2022 2:12 PM EDT) P athologist Signature Glucose Lvl 163 65 - 199 [facility] mg/dL [facility] Comment: Diabetes: >=200 mg/dL plus symp toms BUN 30 (H) 10 - 20 mg/dL [facility] LABORATORY Creatinine 1.47 0.80 - 1.50 mg/dL [facility] LABORATORY [...] 15 mmol/L [facility] LABORATORY Calcium 9.2 8.5 - 10.5 [...] Organization Address City/State/[place] [address] POCT Glucose (01/30/2022 1:41 PM EDT) athologist Signature POC Glucose 148 65 - 199 [facility] mg/dL [facility]ORY Comment: Supplemental ranges: <140 mg/dL before meals <180 mg/dL all other times of the day Specimen Anatomical Collection Method Collection Time Receive d Time (Source) Location / / Volume Laterality Blood 01/30/2022 1:41 PM 1:41 EDT PM EDT Vitaliy Sandra Nobles MD POINT OF CARE TEST ORDERABLE S Performing Organization Address City/State/ZIP Code Phon e Number [address] POCT Glucose (01/30/2022 10:48 AM EDT) P athologist Signature POC Glucose 193 65 - 199 [facility] mg/dL [facility] LAB[facility] Comment: Supplemental ranges: <140 [...] [facility]/[place] [address] EKG 12 Lead (01/30/2022 10:33 AM EDT) Component Value Ref Range Test Analysis Performed Pathologis t Method Time At Signature Ventricular rate 64 BPM MUSE SYSTEM Atrial Rate 64 BPM MUSE SYSTEM P-R Interval 162 ms MUSE SYSTEM QRS Duration 94 ms MUSE SYSTEM Q-T Interval 422 ms MUSE SYSTEM QTC Calculated 435 ms MUSE SYSTEM (Bezet) Calculated P [place] 41 degrees MUSE SYSTEM Calculated R [place] -27 degrees MUSE SYSTEM Calculated T [place] 104 degrees MUSE SYSTEM INTERPRETATION Normal sinus rhythm MUSE SYSTEM Anterolateral infarct (cited on or before 09-DEC-2021) Abnormal ECG When compared with ECG of 10-DEC-2021 11:17, No significant change was found Confirmed by Gary Perez ([id number]) on 01/30/2022 5:57:5 2 PM Specimen Anatomical Collection Method Collection Time Receive d Time (Source) Location / / Volume Laterality 01/30/2022 10:33 01/30/2022 5:57 AM EDT PM EDT Vitaliy Nobles MD ECG ORDERABLES Performing Organization Address City/[facility]/ZIP Code Phon e Number MUSE SYSTEM CARDIAC CATHETERIZATION (01/30/2022 10:16 AM EDT) Specimen (Source) Anatomical Location Collection Method / Collectio n Time Received Time / Laterality Volume Narrative CARDIOMAC SYSTEM - 01/30/2022 2:09 PM ED T ?[facility] ? Cardiac Cathete rization/Intervention Report ? Patient Name: Don Fatima. ? Procedure Date: 01/30/2022 ? A #: [id number] ? Primary Physician: Vitaliy Nobles ? Case #: [id number] ? File Name: [id number] ? Catheterization Order Number: [id number] ? [facility] ? Final Report [place], [place] ? Patient Name: ? Don E. Stewa rt ? ID#: ?[id number] ? : ?1945 ? Procedure Date: ? [...] Class III. Th e [facility] clinical frailty scale is 5: Mildly [...] procedure was Urgent. The indication for ?the asset availability leader visit is stable kn own CAD. Chest pain symptom assessment ?was: Typical Angina. ? Technique: ?A 6 SLFr sheath was inserted in the right radial artery utilizing the ?Seldinger technique. The right coronary artery was injected utilizing a ?IR 2.0 catheter. Coronary stent insertion was performed and the equipment ?utilized will be described in [facility] intervention summary section. 9,000 ?units of [...] guiding catheter an d a 3.5 Fr [place] [address] ??20 Mhz ?using Manual pullback. ??Imagin [...] A premounted 2.00 x 26 mm [place] (TUCKER) ? was deployed wi a maximum [...] Wedelivered along 2.0 x 26 mm [place] ? TUCKER stent and p ositioned it [...] dose administered prior to arrival in the asset availability leader. ?Recommended anti-platelet/anti- thrombotic regimen: ?Continue aspirin 81 [...] using a 2.0 x 26 mm [place] TUCKER stent. ?This completes the revasculariz ation [...] Procedure Note Vitaliy Nobles MD - 03/06/2022 [facility] Cardiac Catheterization/Intervention Re port Patient Name: Don Fatima Procedure Date: 01/30/2022 A #: [id number] Primary Physician: Vitaliy Nobles Case #: [id number] File Name: [id number] Catheterization Order Number: [id number] [facility] Final Report [place], [place] Patient Name: Don Fatima ID#: [...] e was Urgent. The indication for the asset availability leader visit is stable known CAD. Chest pain [...] 1.5 guiding catheter and a 3.5 Fr [place] [facility] [place] [address] 20 Mhz using Manual pullback. Imaging [...] atmospheres. A premounted 2.00 x 26 mm [place] (TUCKER) was deployed with a maximum inflation [...] along 2. 0 x 26 mm HAR[place] TUCKER stent and positioned it at the [...] administered prior t o arrival in the asset availability leader. Recommended anti-platelet/anti-thrombot ic regimen: Continue aspirin 81 [...] require modification of this regimen. Consult D [facility] Interventional Cardiology for questions. The 1 year [...] using a 2.0 x 26 mm [place] TUCKER stent. This completes the revascularization of [...] POC Glucose 212 (H) 65 - 199 [facility] mg/dL [facility] Comment: Supplemental ranges: <140 mg/dL before meals <180 mg/dL all other times of the day Specimen Anatomical Collection Method Collection Time Receive d Time (Source) Location / / Volume Laterality Blood 01/30/2022 9:04 AM 2 9:04 EDT AM EDT Vitaliy Nobles MD POINT OF CARE TEST ORDERABLE S Performing Organization Address City/State/[place] [address] (ABNORMAL) POCT Glucose (01/30/2022 8:10 AM EDT) athologist Signature POC Glucose 224 (H) 65 - 199 [facility] mg/dL [facility] Comment: Supplemental ranges: <140 mg/dL before meals <180 mg/dL all other times of the day Specimen Anatomical Collection Method Collection Time Receive d Time (Source) Location / / Volume Laterality Blood 01/30/2022 8:10 AM 2 8:10 EDT AM EDT Vitaliy Nobles MD POINT OF CARE TEST ORDERABLE S Performing Organization Address City/[facility]/[place] [address] documented in this encounter Visit Diagnoses Diagnosis ASCVD (arteriosclerotic cardiovascular d isease) Unspecified cardiovascular disease 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 ASHD (arteriosclerotic heart disease) Coronary atherosclerosis of unspecified type of vessel, elim ira or graft ASCVD (arteriosclerotic cardiovascular d isease) Unspecified cardiovascular disease documented in this encounter Admitting Diagnoses Diagnosis CAD (coronary artery disease) Coronary atherosclerosis of unspecified type of vessel, elim ira or graft documented in this encounter Administered [...] Given 02/2022 10:11 AM EDT 100 mcg (CORE SHAPER TOP) ONCE PRN, Starting on Wed01/30/22 at 0927, [...] Procedure), Routine niCARdipine (Cardene) (100 mcg/mL) dilution (CORE SHAPER TOP) (CANCELED ) 0927 (Given - Provider: Vitaliy [...] (Intra-Procedure) documented in this encounter Care Teams Lineman Apprentice Relationship Specialty Start Date End Date Lovely Vicente MD PCP - General 04/16/[address] [place] [address] documented as of this encounter
--- OUTSIDE RECORDS SUMMARY | 2022-03-16 08:13 | XMS_ITS | Encounter Summary ---
:1945 Author Organization [facility] [address] Care Team Providers Name Role Phone Lovely Vicente MD Primary Care Provider Encounter Details Date Type Department Care Team Description 12/12/2021 Telephone Cardiology at [facility] [place] [address] Social History Tobacco Use Types Packs/Day [...] - 12/12/2021 11:36 AM EDT RTC to fishfishme regarding pharmacists questions as to whether the [...] [facility] ER DR TADEO [place], [place] [address] (Wo rk) 05/28/2022 Appointment Cardiology Zulma Dolan MD [facility] [place], [place] [address] (Wo rk) 05/28/2022 Laboratory Appointment Lab 05/28/2022 Office Visit Cardiology Zulma Dolan MD [facility] [place] [address] Liz Poole PA [facility] [place] [address] 06/10/2022 Office Visit Dermatology Laura Scherer MD [facility] DR [address]-DERMAT [place], [place] [address] (Wo rk) documented as of this encounter Visit Diagnoses Not on filedocumented in this encounter Care Teams Derrick Boat Runner Relationship Specialty Start Date End Date Lovely Vicente MD PCP - General 04/16/15 [facility] [address] [place] [address] documented as of this encounter
--- OUTSIDE RECORDS SUMMARY | 2022-03-16 08:13 | XMS_ITS | Encounter Summary ---
:1945 Author Organization [facility] [place] [address] Care Team Providers Name Role Phone Lovely Vicente MD Primary Care Provider Encounter Details Date Type Department Care Team Description 12/24/2021 Telephone Public Health at [facility] [place] [address] Social History Tobacco Use Types Packs/Day [...] [facility] ER DR TADEO [place], [place] [address] (Wo rk) 05/28/2022 Appointment Cardiology Zulma Dolan MD [facility] [place], [place] [address] (Wo rk) 05/28/2022 Laboratory Appointment Lab 05/28/2022 Office Visit Cardiology Zulma Dolan MD [facility] [place] [address] Liz Poole PA [facility] [place] [address] 06/10/2022 Office Visit Dermatology Laura Scherer MD [facility] DR [address]-DERMAT [place], [place] 0[address] (Wo rk) documented as of this encounter Visit Diagnoses Not on filedocumented in this encounter Care Teams Hot Shot Relationship Specialty Start Date End Date Lovely Vicente MD PCP - General 04/16/[address] [place] [address] documented as of this encounter
--- OUTSIDE RECORDS SUMMARY | 2022-03-16 08:13 | XMS_ITS | Encounter Summary ---
:1945 Author Organization [facility] [place] [address] Care Team Providers Name Role Phone Lovely Vicente MD Primary Care Provider Encounter Details Date Type Department Care Team Description 02/24/2022 Orders Only Cardiology at [facility] Liz Poole, Chronic systolic heart [facility] [place] [address] Cardiology Dept [place], [place] [address] Social History Tobacco Use Types [...] [facility] ER DR [place]LE [place], [place] [address] (Wo rk) 05/28/2022 Appointment Cardiology Zulma Dolan MD [facility] er Dr [place], [place] [address] (Wo rk) 05/28/2022 Laboratory Appointment Lab 05/28/2022 Office Visit Cardiology Zulma Dolan MD [facility] [place] [address] Liz Poole PA [facility] [place] [address] 06/10/2022 Office Visit Dermatology Laura Scherer MD [facility] ER DR [address]-DERMAT [place], [place] [address] (Wo rk) documented as of this encounter Visit Diagnoses Diagnosis Chronic systolic heart failure documented in this encounter Care Teams Hot Roll Inspector Relationship Specialty Start Date End Date Lovely Vicente MD PCP - General 04/16/[address] [place] [address] documented as of this encounter
--- OUTSIDE RECORDS SUMMARY | 2022-03-16 08:13 | XMS_ITS | Encounter Summary ---
:1945 [place] [address] Care Team Providers Name Role Phone Lovely Vicente MD Primary Care Provider Encounter Details Date Type Department Care Team Description 01/28/2022 Orders Only Auto Parts Clerk Zulma Finch ASCVD (art eriosclerotic [facility] cardiovascular disease) [facility] [place] [address] [place], [place] [phone] [phone] (Work) [phone] Social History Tobacco Use Types Packs/Day Years [...] Vitaliy Nobles MD [facility] DR CARLYLE [place] 0375 (Wo rk) 05/28/2022 Appointment Cardiology Zulma Dolan MD [facility] [address] [place] 0[address] (Wo rk) 05/28/2022 Laboratory Appointment Lab 05/28/2022 Office Visit Cardiology Zulma Dolan MD [facility] [place] [address] Liz Poole PA [facility] [place] [address] 06/10/2022 Office Visit Dermatology Laura Scherer MD [facility] ER DR [address]-DERMAT [place], [place] 0[address] (Wo rk) documented as of this encounter Results (ABNORMAL) Basic Metabolic Panel (non-fasting) (01/30/2022 7:19 AM EDT) P athologist Signature Glucose Lvl 237 (H) 65 - 199 [facility] mg/dL [facility] Comment: Diabetes: [...] 107 mmol/L [facility] CO2 30 22 - 31 mmol/L [facility] Anion Gap 11 5 - 15 mmol/L [facility]OR[facility]ORY Calcium 9.5 8.5 - 10.5 mg/dL [facility] LABOR[facility] Estimated GFR 50 (L) >=60 mL/min/1.73 m?? [facility] [...] Address City/State/[place] [address] documented in this encounter Visit Diagnoses Diagnosis ASCVD (arteriosclerotic cardiovascular d isease) Unspecified cardiovascular disease documented in this encounter Care Teams Section Supervisor Relationship Specialty Start Date End Date Lovely Vicente MD PCP - General 04/16/[address] [place] [address] documented as of this encounter
--- OUTSIDE RECORDS SUMMARY | 2022-03-16 08:13 | XMS_ITS | Encounter Summary ---
:1945 Author Organization [facility] [place] [address] Care Team Providers Name Role Phone Lovely Viecnte MD Primary Care Provider Encounter Details Date Type Department Care Team Description 02/24/2022 Notes Only Care Management [place] [address] Social History Tobacco Use Types Packs/Day [...] return to the Medication Assistance Program. The [facility] office will follow up with the patient in 5 business days to see if the patient has received the application and if they have any questions. documented in this encounter Plan of Treatment Upcoming Encounters Date Type Specialty Care Team Description 03/26/2022 Office Visit Cardiology Vitaliy Nobles MD [facility] DR T[address] [place], [place] [address] (Wo rk) 05/28/2022 Appointment Cardiology Zulma Dolan MD [facility] [place], [place] [address] (Wo rk) 05/28/2022 Laboratory Appointment Lab 05/28/2022 Office Visit Cardiology Zulma Dolan MD [facility] [place] [address] Liz Poole PA [facility] [place] [address] 06/10/2022 Office Visit Dermatology Laura Scherer MD [facility] DR [address]-DERMAT [place], [place] [address] (Wo rk) documented as of this encounter Visit Diagnoses Not on filedocumented in this encounter Care Teams Script Writer Relationship Specialty Start Date End Date Lovely Vicente MD PCP - General 04/16/15 [facility] [address] [place] [address] documented as of this encounter
--- OUTSIDE RECORDS SUMMARY | 2022-03-16 08:13 | XMS_ITS | Encounter Summary ---
:1945 Author Organization [facility] [place] [address] Care Team Providers Name Role Phone Lovely Vicente MD Primary Care Provider Encounter Details Date Type Department Care Team Description 02/19/2022 Laboratory Appointment Lab 3L [facility] [place] [id number] Social History Tobacco Use Types Packs/Day Years [...] Vitaliy Nobles MD [facility] DR T[place] [place], [place] 0375 (Wo rk) 05/28/2022 Appointment Cardiology Zulma Dolan MD [facility] Dr [place] 0[address] (Wo rk) 05/28/2022 Laboratory Appointment Lab 05/28/2022 Office Visit Cardiology Zulma Dolan MD [facility] [place] [address] Liz Poole PA [facility] [place] [address] 06/10/2022 Office Visit Dermatology Laura Scherer MD [facility] ER DR [address]-DERMAT OLOGY [place], [place] 0375 (Wo rk) documented as [...] (ABNORMAL) Differential, Automated (02/19/2022 8:06 AM EDT) [facility] Method Time Signature Neutrophils % 76.0 % [facility] LABORATORY Neutr Abs (ANC) 5.49 1.70 - [facility] [address] [facility] x10(3)/[facility] LABORATORY Lymphocytes % 10.8 % [facility] LABORATORY Lymphocytes Abs 0.8 (L) 0.9 - 3.2 [facility] x10(3)/[facility] LABORATORY Monocytes % 10.2 % [facility] LABORATORY Monocyte Abs 0.7 0.3 - 0.9 [facility] x10(3)/[facility] LABORATORY Eosinophils % 1.2 % [facility] LABORATORY Eosinophils Abs 0.1 0.0 - 0.4 [facility] x10(3)/[facility] LABORATORY Basophils % 0.8 % [facility] LABORATORY Basophils Abs 0.1 0.0 - 0.1 [facility] x10(3)/[facility] LABORATORY Immature Gran % 1.00 % [...] City/State/ZIP Code Phon e Number [place] [phone] HOSPITAL LAB[address]ATORY [address] (ABNORMAL) Hemogram (02/19/2022 8:06 AM EDT) Analysis Performed At Patho logist Time Signature WBC 7.2 4.0 - 9.5 [facility] x10(3)/[facility] LABORATORY RBC 4.41 (L) 4.58 - [facility] [address] [facility] x10(6)/[facility] LABORATORY Hemoglobin 13.2 (L) 13.7 - [facility] 16.5 g/dL [facility] LABORATORY Hematocrit 40.9 40.5 - [facility] 48.5 % [facility] LABORATORY MCV 92.7 82.9 - [facility] 93.1 [facility] LABORATORY MCH 29.9 27.5 - [facility] 32.1 pg [facility] LABORATORY MCHC 32.3 32.0 - [facility] 35.7 g/dL [facility] LABORATORY Platelets 191 145 - 357 [facility] x10(3)/[facility] LABORATORY RDWSD 53.6 (H) 36.0 - [facility] 45.0 [facility] LABORATORY RDWCV 15.6 (H) 11.4 - [facility] 13.8 % [facility] LABORATORY MPV 8.7 7.6 - 12.9 [facility] LABORATORY nRBC % Auto 0.0 % [facility] LABORATORY nRBC Abs Auto 0.000 0.000 - [facility] [address] [facility] x10(3)/[facility] LABORATORY Specimen Anatomical Collection Method Collection Time Receive d Time (Source) Location / / Volume Laterality Blood 02/19/2022 8:06 AM 2 8:09 EDT AM EDT Resulting Agency Comment Spec In Lab Liz BROWN HEMATOLOGY ORDERABLES Performing Organization Address City/[facility]/ZIP Code Phon e Number [address] (ABNORMAL) pro-Brain Natriuretic Peptide [...] Organization Address City/State/[place] [address] (ABNORMAL) Basic Metabolic Panel (non-fasting) (02/19/2022 8:06 AM EDT) P athologist Signature Glucose Lvl 139 65 - 199 [facility] mg/dL [facility] LABORATORY Comment: Diabetes: >=200 mg/dL plus symp toms BUN 31 (H) 10 - 20 mg/dL [facility] LABORATORY Creatinine 1.53 (H) 0.80 - 1.50 mg/dL [facility] LABORATORY Sodium 142 135 - 145 mmol/L [facility] LABORATORY Potassium 5.4 (H) 3.5 - 5.0 mmol/L [facility] [...] LABORATORY Calcium 9.7 8.5 - 10.5 mg/dL [facility] [...] Address City/State/ZIP [place] [address] documented in this encounter Visit Diagnoses Diagnosis Chronic systolic heart failure documented in this encounter Care Teams Installation Drafter Relationship Specialty Start Date End Date Lovely Vicente MD PCP - General 04/16/[address] [place] [address] documented as of this encounter
--- OUTSIDE RECORDS SUMMARY | 2022-03-16 08:13 | XMS_ITS | Encounter Summary ---
:1945 [place] [address] Care Team Providers Name Role Phone Lovely Vicente MD Primary Care Provider Encounter Details Date Type Department Care Team Description 12/24/2021 Orders Only Uniform Attendant Zulma Finch ASCVD (art eriosclerotic [facility] cardiovascular disease) [facility] [place] [address] [place], [place] [phone] (Work) [phone] Social History Tobacco Use Types Packs/Day Years [...] [facility] DR CARLYLE [place] 0375 (Wo rk) 05/28/2022 Appointment Cardiology Zulma Dolan MD [facility] Dr [place] 0375 (Wo rk) 05/28/2022 Laboratory Appointment Lab 05/28/2022 Office Visit Cardiology Zulma Dolan MD [facility] [place] [address] Liz Poole PA [facility] [place] [address] 06/10/2022 Office Visit Dermatology Laura Scherer MD [facility] ER DR [address]DERMAT [place], [place] 0[address] (Wo rk) documented as of this encounter Visit Diagnoses Diagnosis ASCVD (arteriosclerotic cardiovascular d isease) Unspecified cardiovascular disease documented in this encounter Care Teams Manager Field Investigations Relationship Specialty Start Date End Date Lovely Vicente MD PCP - General 04/16/[address] [place] [address] documented as of this encounter
--- OUTSIDE RECORDS SUMMARY | 2022-03-16 08:13 | XMS_ITS | Encounter Summary ---
:1945 Author Organization [facility] [place] [address] Care Team Providers Name Role Phone Lovely Vicente MD Primary Care Provider Reason for Visit Auth/Cert Specialty Diagnoses / Procedures Referred By Contact Refer red To Contact Diagnoses ASCVD (arteriosclerotic cardiovascular disease) [I25.10] Vitaliy Nobles MD [facility] Procedures PRO PERC TRLUML CORONARY STENT W/ANGIO ONE ART/BRANCH CARDIAC CATHETERIZATION STENT PLACEMENT-SINGLE MAJOR CORONARY ARTERY OR BRANCH [facility] [place] [address] Referral ID Status Reason Start Date Expiration Date Visits Requ ested Visits Authorized [id number] 1 1 Encounter Details Date Type Department Care Team Description 01/30/2022 Laboratory Lab 3L Katalina ASCVD (arterios clerotic Appointment [facility] cardiovas [place]ular disease) [place] [address] Social History Tobacco Use Types Packs/Day Years [...] Vitaliy Nobles MD [facility] CARDIOLOGY [place], [place] 0375 (Wo rk) 05/28/2022 Appointment Cardiology Zulma Dolan MD [facility] [place], [place] 0[address] (Wo rk) 05/28/2022 Laboratory Appointment Lab 05/28/2022 Office Visit Cardiology Zulma Dolan MD [facility] [place] [address] Liz Poole PA [facility] [place] [address] 06/10/2022 Office Visit Dermatology Laura Scherer MD [facility] DR [address]-DERMAT [place]LOGY [place], [place] 0375 (Wo rk) documented as of [...] (ABNORMAL) Differential, Automated (01/30/2022 7:19 AM EDT) [facility] Method Time Signature Neutrophils % 77.9 % [facility] LABORATORY Neutr Abs (ANC) 5.31 1.70 - [facility] 6.10 [facility] x10(3)/[facility] LABORATORY Lymphocytes % 12.0 % [facility] LABORATORY Lymphocytes Abs 0.8 (L) 0.9 - 3.2 [facility] x10(3)/[facility] LABORATORY Monocytes % 8.1 % [facility] LABORATORY Monocyte Abs 0.6 0.3 - 0.9 [facility] x10(3)/[facility] LABORATORY Eosinophils % 0.4 % [facility] LABORATORY Eosinophils Abs 0.0 0.0 - 0.4 [facility] x10(3)/[facility] LABORATORY Basophils % 0.6 % [facility] LABORATORY Basophils Abs 0.0 0.0 - 0.1 [facility] x10(3)/[facility] LABORATORY Immature Gran [...] Organization Address City/State/[place] [address] (ABNORMAL) Hemogram (01/30/2022 7:19 AM EDT) Analysis Performed At Patho logist Time Signature WBC 6.8 4.0 - 9.5 [facility] x10(3)/[facility] LABORATORY RBC 4.32 (L) 4.58 - [facility] 5.54 [facility] x10(6)/[facility] LABORATORY Hemoglobin 13.0 (L) 13.7 - [facility] 16.5 g/dL [facility] LABORATORY Hematocrit 39.8 (L) 40.5 - [place] [facility] 48.5 % [facility] LABORATORY MCV 92.1 82.9 - [facility] 93.1 [facility] LABORATORY MCH 30.1 27.5 - [facility] 32.[address] [facility] LABORATORY MCHC 32.7 32.0 - [facility] 35.7 g/dL [facility] LABORATORY Platelets 172 145 - 357 [facility] x10(3)/[facility] LABORATORY RDWSD 54.5 (H) 36.0 - [place] [facility] 45.0 [facility] LABORATORY RDWCV 16.2 (H) 11.4 - [place] 13.8 % [facility] LABORATORY MPV 9.0 7.6 - 12.9 [facility] LABORATORY nRBC % Auto 0.0 % [facility]ATORY nRBC Abs Auto 0.000 0.000 - [facility] 0.000 [facility] x10(3)/[facility] LABORATORY Specimen Anatomical Collection Method Collection Time Receive d Time (Source) Location / / Volume Laterality Blood 01/30/2022 7:19 AM 7:21 EDT AM EDT Resulting Agency Comment Spec In Lab Zulma BROWN HEMATOLOGY ORDERABLES Performing Organization Address City/State/ZIP Code Phon e Number [place] [phone] HOSPITAL LABORATORY Drive (ABNORMAL) Basic Metabolic Panel (non-fasting) (01/30/2022 7:19 AM EDT) P athologist Signature Glucose Lvl 237 (H) 65 - 199 [facility] mg/dL [facility] LABORATORY Comment: Diabetes: >=200 mg/dL plus symp toms BUN 34 (H) 10 - 20 mg/dL [facility] LABORATORY Creatinine 1.45 0.80 - 1.50 mg/dL [facility] [...] 15 mmol/L [facility] LABORATORY Calcium 9.5 8.5 - 10.5 [...] Organization Address City/State/[place] [address] documented in this encounter Visit Diagnoses Diagnosis ASCVD (arteriosclerotic cardiovascular d isease) Unspecified cardiovascular disease documented in this encounter Care Teams Research Specialist Relationship Specialty Start Date End Date Lovely Vicente MD PCP - General 04/16/[address] [place] [address] documented as of this encounter
--- OUTSIDE RECORDS SUMMARY | 2022-03-16 08:14 | XMS_ITS | Encounter Summary ---
:1945 Author Organization [place] [address] Care Team Providers Name Role Phone Lovely Vicente MD Primary Care Provider Encounter Details Date Type Department Care Team Description 12/08/2021 External Results Non-Invasive Cardiology Lab Mar y None [facility] [place] [address] Social History Tobacco Use Types Packs/Day [...] [facility] DR [place]LE [place], [place] [address] (Wo rk) 05/28/2022 Appointment Cardiology Zulma Dolan MD [facility] [address] [place] 0[address] (Wo rk) 05/28/2022 Laboratory Appointment Lab 05/28/2022 Office Visit Cardiology Zulma Dolan [facility] [place] [address] Liz Poole PA [facility] [place] [address] 06/10/2022 Office Visit Dermatology Laura Scherer MD [facility] ER DR [address]-DERMAT [place], [place] 0[address] (Wo rk) documented as of [...] filedocumented in this encounter Care Teams Alteration Manager Relationship Specialty Start Date End Date Lovely Vicente MD PCP - General 04/16/[address] [place] [address] documented as of this encounter
--- OUTSIDE RECORDS SUMMARY | 2022-03-16 08:14 | XMS_ITS | Encounter Summary ---
:1945 Author Organization [facility] [address] Care Team Providers Name Role Phone Lovely Vicente MD Primary Care Provider Encounter Details Date Type Department Care Team Description 12/07/2021 Telephone Cardiology Eddi Briceño Jr., [facility] [place] [address] [facility] [phone] CARDIOLOGY DEPT [place], [place] 0375 (Wo rk) Social History Tobacco [...] the OSH ED provider/staff member. Referring Location: [facility] Referring Provider: Marisela Dean, CLINICAL SYSTEMS ANALYST [address] [place] [address] Don Veda Kushal 76 y.o. w / [...] bpm, LAFB, poor R wave progression, septal MN, and lateral STD, overall no significantchange from [...] [facility] DR CARLYLE [place] [address] (Mikayla alcaraz) 05/28/2022 Appointment Cardiology Zulma Dolan MD [facility] Dr [place] 0[address] (Wo rk) 05/28/2022 Laboratory Appointment Lab 05/28/2022 Office Visit Cardiology Zulma Dolan MD [facility] [place] [address] Liz Poole PA [facility] [place] [address] 06/10/2022 Office Visit Dermatology Laura Scherer MD [facility] ER DR TEJA GR-DERMAT [place], [place] 0375 (Wo rk) documented as of this encounter Visit Diagnoses Not on filedocumented in this encounter Care Teams Tube Dispatcher Relationship Specialty Start Date End Date Lovely Vicente MD PCP - General 04/16/[address] [place], [place] [address] documented as of this encounter
--- OUTSIDE RECORDS SUMMARY | 2022-03-16 08:14 | XMS_ITS | Encounter Summary ---
:1945 Author Organization [facility] [place] [address] Care Team Providers Name Role Phone Lovely Vicente MD Primary Care Provider Encounter Details Date Type Department Care Team Description 12/07/2021 External Results Administration [facility] [place] [place] [address] Social History Tobacco Use Types Packs/Day [...] Cardiology Vitaliy Nobles MD [facility] DR [place], [place] [address] (Wo rk) 05/28/2022 Appointment Cardiology Zulma Dolan MD [facility] Dr [place] 0[address] (Wo rk) 05/28/2022 Laboratory Appointment Lab 05/28/2022 Office Visit Cardiology Zulma Dolan MD [facility] [place] [address] Liz Poole PA [facility] [place] [address] 06/10/2022 Office Visit Dermatology Laura Scherer MD [facility] ER DR [address]-DERMAT [place], [place] 0[address] (Wo rk) documented as [...] on filedocumented in this encounter Care Teams Storyboard Artist Relationship Specialty Start Date End Date Lovely Vicente MD PCP - General 04/16/[address] [place] [address] documented as of this encounter
--- OUTSIDE RECORDS SUMMARY | 2022-03-16 08:14 | XMS_ITS | Encounter Summary ---
:1945 Author Organization [facility] [place] [address] Care Team Providers Name Role Phone Lovely Vicente MD Primary Care Provider Reason for Visit Auth/Cert Specialty Diagnoses / Procedures Referred By Contact Refer red To Contact Diagnoses NSTEMI Procedures emerg ipi Referral ID Status Reason Start Date Expiration Date Visits Requ ested Visits Authorized [id number] 1 1 Encounter Details Date Type Department Care Team Description 12/10/2021 Surgery Electronic Warfare Technician Asa Coulter MD CARDIAC CATHETERIZATION [facility] [place] [address] [place] [address] [phone] (Wo rk) Social History Tobacco Use Types [...] Don Fatima Patient Age: 76 y.o. Language: Syrian Race: White Ethnicity: Not nor Admit date: [...] Peter PA-C Kelly LaFlamme PA-C Cardiovascular Medicine [phone] Discharge Diagnoses (Hospital Problems) and Secondary Diagnoses [...] 3.75 guiding catheter and a 3.5 Fr [facility] [place] 20 Mhz using Manual pullback. Imaging was successful. Image quality was good. The ostial LCX showed moderate diffuse atherosclerotic plaque with scattered three quadrant calcification. Measurements were performed after pre-dilation. Post Intervention: The stent was well expanded and apposed. Intravascular Ultrasound was performed in the distal LM using a 7 Fr EBU 3.75 guiding catheter and a 3.5 Fr [facility] [place] 20 Mhz using Manual pullback. Imaging was [...] may require modification of this regimen. Consult [facility] Interventional Cardiology for questions. [...] vascular congestion and cardiomegaly. ?? TTE from [facility] 12/08/21 ? Prior Cardiac Studies: [...] prior thyroidectomy in 2012 who presented to [facility] with 1 week progressing breathlessness [...] 03/2021 with Liz Poole PA-C. ?? At [facility], respiratory distress with hypoxia 86% [...] and diet drinks did not cause his LA. This is what his thought was the [...] appointments: During 8am-5pm Wednesday through Wednesday call [phone] to speak with a nurse in the cardiology clinic All other times call [phone] and ask to speak to the land use planner insurance verification clerk. Return to work: One week Driving: No driving for 48 hours after catheterization. Follow up Appointments: PCP Lovely Vicente MD [phone] to see patient at the end of December for annual check up. Patient to see Dr. Lorenzana at 1120 am at December 19 for a post hospital check up. Manager Photo Dr. De Oliveira to see you in [facility]. Left a message for office to set a date and time. Please call [phone] Nobles to see the patient for a same day cath in 2-3 weeks from now. Office to call with a date and time. For questions please call [phone] Home oxygen therapy: N/A Arrangements for VNA/home care: none Future Appointments and Orders Future Orders Complete By Expires Basic Metabolic Panel (non-fasting) [LAB15 Custom] 12/19/2021 (Approximate) 12/12/2022 Process Instructions: INCLUDES: Calcium, BUN, Creat, GFR, Glucose, Lytes Scheduling Instructions: Comments: Questions: Referral to Cardiac Rehab [[id number] Custom] As directed Process Instructions: If no [...] appointments: During 8am-5pm Wednesday through Wednesday call [phone] to speak with a nurse in the cardiology clinic All other times call [phone] and ask to speak to the land use planner insurance verification clerk. Return to work: One week Driving: No driving for 48 hours after catheterization. Follow up Appointments: PCP Lovely Vicente MD [phone] to see patient at the end of December for annual check up. Patient to see Dr. Lorenzana at 1120 am at December 19 for a post hospital check up. Manager Photo Dr. De Oliveira to see you in [facility]. Left a message for office to set a date and time. Please call [phone] Nobles to see the patient for a same day cath in 2-3 weeks from now. Office to call with a date and time. For questions please call [phone] Home oxygen therapy: N/A Arrangements for VNA/home [...] Progress Note Patient Name: Don Fatima Service: NEWSPAPER MANAGER / PA Responsible Attending: Ifeanyi Truong MD [...] was given Lasix 80mg IV x1 in operations label clerk. Tolerated procedure well. Home today at 11 [...] pulmonary vascular congestion and cardiomegaly. TTE from [facility] 12/08/21 Prior Cardiac Studies: TTE [...] further IV methylprednisolone at this time. #MARIA VICTORAI On CPAP at home but does not know settings. Will order CPAP w/ auto titrate. ?? #Hypothyroidism status post thyroidectomy TSH WNL Continue levothyroxine. ?? Routine: #Code status: FULL #DVT prophylaxis: heparin infusion #GI prophylaxis: PPI Discussed with MD Janneth Neville PA 12/12/2021 Pager [phone] Associated attestation - Ifeanyi Truong MD - [...] ratio for each meal) Desirae Jett APRN [facility] Endocrinology Diabetes Management Pager [phone] 20 minutes of this 35 minute visit [...] Progress Note Patient Name: Don Fatima Service: NEWSPAPER MANAGER / PA Responsible Attending: Iker Cuevas MD [...] + trop. Known CAD with hx of LA and CABG. DM. MARIA VICTORIA.ICM. ??? ASHD [...] was given Lasix 80mg IV x1 in operations label clerk. Tolerated procedure well. Review of Systems: Review [...] Intake/Output Summary (Last 24 hours) at 12/11/2021 0910 Last data filed at 12/11/2021 0508 Gross [...] pulmonary vascular congestion and cardiomegaly. TTE from [facility] 12/08/21 Prior Cardiac Studies: TTE [...] A1c 6.2% S/p R/LHC as noted above, TUCKRE to ostial LCX ?? # Acute hypoxic [...] and answered his questions. Iker Cuevas MD [facility] Total time spent on review of records prior to visit, face to face time with patient during visit, documentation, and coordination of care with other clinicians: 25 minutes. . Iker Cuevas MD - 12/10/2021 12:30 PM EDT Images from the original note were not included. Inpatient Cardiology Progress Note Patient Name: Don Fatima Service: NEWSPAPER MANAGER / PA Responsible Attending: Iker Cuevas MD Reason for continued hospitalization: NSTEMI- s/p R/LHC- PCW 27, occluded SVGs s/p PCI to ostial LCX ADHF and hypoxia- IV diuresis Active Problems: Active Hospital Problems Diagnosis ??? Admitted with 2 days of sob, hypoxemia, and + trop. Known CAD with hx of LA and CABG. DM. MARIA VICTORIA.ICM. ??? ASHD [...] was given Lasix 80mg IV x1 in operations label clerk. Tolerated procedure well. Review of Systems: Review [...] pulmonary vascular congestion and cardiomegaly. TTE from [facility] 12/08/21 Prior Cardiac Studies: TTE [...] Discussed with MD Migdalia Peter PA-C Pager #[phone] 12/10/2021 Cardiology Attending Note I have seen [...] and given pictures. Iker Cuevas MD [facility] Total time spent on review of records prior to visit, face to face time with patient during visit, documentation, and coordination of care with other clinicians: 35 minutes. Iker Cuevas MD - 12/09/2021 7:28 AM EDT Images from the original note were not included. Inpatient Cardiology Progress Note Patient Name: Don Ftaima Service: NEWSPAPER MANAGER / PA Responsible Attending: Iker Cuevas MD Reason for continued hospitalization: NSTEMI- awaiting R/LHC ADHF and hypoxia- IV diuresis, R/LHC Active Problems: Active Hospital Problems Diagnosis ??? Admitted with 2 days of sob, hypoxemia, and + trop. Known CAD with hx of LA and CABG. DM. MARIA VICTORIA.ICM. ??? ASHD [...] pulmonary vascular congestion and cardiomegaly. TTE from [facility] 12/08/21 Prior Cardiac Studies: TTE [...] Discussed with MD Migdalia Peter PA-C Pager #[phone] 12/09/2021 Cardiology Attending Note I have seen and examined the patient. I agree with the findings above. Developed CHF early this am despite getting more iv lasix last evening. Feeling better now. INR > 2. Lungs still wet at base. Echo at [facility] showed EF 35% with mild mod MR slightly lower than last value here. -vit K 2.5 orally to facilitate correction of INR- this will take 12-24 hours to take effect -furosemide 80 mg iv now -postpone right and left heart cath until tomorrow given INR and ADHF -increase statin to achieve LDL < 70 -CPAP tonight Iker Cuevas MD [facility] Total time spent on review of [...] + trop. Known CAD with hx of LA and CABG. DM. MARIA VICTORIA.ICM. ??? ASHD [...] prior thyroidectomy in 2012 who presented to [facility] with 1 week progressing breathlessness [...] visit 03/2021 with Liz Poole PA-C. At [facility], respiratory distress with hypoxia 86% [...] [facility] ??? PRO AMPUTATION FOOT, TRANSMETATARSAL Right 08/09/2017 AMPUTATION, TRANSMETATARSAL (WRVU 12.71) performed by [facility]athan Smith [facility] ??? PRO DRESSING CHANGE UNDER ANESTHESIA Right 08/11/2017 (MSURG) DRESSING CHANGE (FOR OTHER THAN IVAN) UNDER ANES. (WRVU 0.86) performed by Lamar Smith MD at [facility] MAIN OR ??? PRO ENDOSCOPY W/VIDEO-ASST VEIN HARVEST, CABG Right 07/07/2017 ENDOSCOPIC HARVEST VEIN(S) FOR CABG (WRVU 0.31) performed by Yuan Retana MD at [facility] MAIN OR ??? PRO THYROIDECTOMY 03/28/2013 THYROIDECTOMY, TOTAL OR COMPLETE performed by Manny Mcknight MD at [facility] MAIN OR Significant Family History: Family [...] (H) 65 - 199 mg/dL Labs at [facility] 12/08/2021-troponin I 8004 (UN L [...] ADRs. Trend troponins. Admission EKG. [facility] 12/09; consented. TTE. Telemetry monitoring, [...] control; n.p.o. after midnight for [facility] #DVT prophy- heparin infusion #GI prophy- PPI Discussed with MD Morgan Peter PA-C APP2 pager [phone] 12/08/2021 Cardiology Attending Note I have seen [...] is type 1 due to graft or galena coronary stenosis vs acute injury from CHF. 3. PAF: currrently in NSR. Have replaced warfarin with heparin 4. PAD: stable 5. DM: stable 6. CKD: will monitor and minimize contrast. Pt very appreciative of Dr. Yuan Retana's care in 2018. Will let him know patient is here. Iker Cuevas MD [facility] documented in this encounter Miscellaneous Notes [...] Type: *No Product type* / Secondary Insurance: Poll Everywhere [place] Prescription Coverage: Yes This plan was [...] cath without complications. Migdalia Parker PA-C Pager #[phone] 12/10/2021 Initial Assessments - Nick Georges RN [...] COVID test: Lab Results Component Value Date [id number] Not Detected 12/08/2021 Past medical History: Past [...] spouse would be surrogate decision maker per [place] surrogate decision making law. (Only good for 180 days) Any patient receiving care at [facility] must abide by [place] law. The hierarchy for surrogate decision making [...] The agent with financial power of tax attorney or a conservator appointed in accordance [...] - standard, cane - straight Home Address: [address] [place] [address] [place] [address] Social & Family Supports: All names listed below confirmed with patient as current and correct Extended Emergency Contact Information Primary Emergency Contact: Kisha Fatima Address: [address] [place] [address] [place] [address] [facility] Mobile Relation: Spouse Secondary Emergency Contact: Elba Swenson Address: [place], [place] [id number] [place] [address] Mobile Relation: Child Current Care Provided by: [...] Type: *No Product type* / Secondary Insurance: [facility] Prescription Coverage: Yes Preferred Pharmacy: [facility] [place] [phone] [id number] - [place], [place] - [address] [place] [id number] [place] Status: Patient is a : unable to assess Primary Care Provider: Lovely Vicente MD [phone] Patient/Caregiver Goals of Treatment: Get out of here Potential Needs for Transition of Care: none Agency Referrals: none patient has used [facility] in the past Transportation: no concerns Transportation Anticipated: family or friend will provide Concerns to be Addressed: patient refuses services, discharge planning Assessment: Patient is admitted to [facility] Service pager [phone] for 76 y.o.??male??with h/o??CAD s/p 3vCABG (THOMPSON-LAD, [...] status on current unit. Nick Georges RN accountant budget, Office of Care Management Pager: [phone] Brief Op Note - Vitaliy Nobles MD - 12/10/2021 8:31 AM EDT Images from the original note were not included. [facility] [place] [place] [address] CORONARY ANGIOGRAM AND PERCUTANEOUS CORONARY INTERVENTION REPORT Patient: Don Fatima : 1945 MR number: [id number] Date of Service: 12/10/2021 Financial Sales Associate: Vitaliy Nobles MD Fellow: Rancho Woods MD [...] management and to provide a review of senior living diabetes care. Diabetes History: Don Fatima has had diabetes for 10 years. He has been on insulin for the last several years andis managed by his PCP. Lives in [place], [place] with his . States that he [...] 5 gm carb ratio for each meal) custodial diabetes care: Medications - Outpatient treatment regimen recommendations pending based on the hospital course. Monitoring - continue BG tid ac & hs Diet - low fat/low carb diet Exercise - weight-bearing exercise 30 min/day, as tolerated Thank you for allowing us to provide care for your patient Desirae Jett APRN Endocrinology Pager [phone] 70 minutes of this 80 minute visit [...] + trop. Known CAD with hx of LA and CABG. DM. MARIA VICTORIA.ICM. ??? ASHD [...] to remain on Med/Surg floor, please page [phone] for any further questions or concerns. LANDON [...] for further details. STEPHANIE Rebolledo 12/08/2021 Pager [phone] documented in this encounter Plan of Treatment Upcoming Encounters Date Type Specialty Care Team Description 03/26/2022 Office Visit Cardiology Vitaliy Nobles MD [facility] [address] [place], [place] [address] (Wo rk) 05/28/2022 Appointment Cardiology Zulma Dolan MD [facility] [address] [place], [place] [address] (Wo rk) 05/28/2022 Laboratory Appointment Lab 05/28/2022 Office Visit Cardiology Zulma Dolan MD [facility] [place] [address] Liz Poole PA [facility] [place] [address] 06/10/2022 Office Visit Dermatology Laura Scherer MD [facility] DR TEJA GR[place]MAT [place], [place] [address] (Wo rk) Scheduled Referrals Name [...] 215 (H) 65 - 199 [facility] mg/dL [facility] Comment: Supplemental ranges: <140 mg/dL before meals <180 mg/dL all other times of the day Specimen Anatomical Collection Method Collection Time Receive d Time (Source) Location / / Volume Laterality Blood 12/12/2021 7:42 AM 7:42 EDT AM EDT Ifeanyi Truong MD POINT OF CARE TEST ORDERABLE S Performing Organization Address City/State/[place] [address] (ABNORMAL) Differential, Automated (12/12/2021 4:51 AM EDT) athologist [facility] Neutrophils % 75.4 % [facility] Neutr Abs (ANC) 5.95 1.70 - [facility] 6.10 [facility] x10(3)/[facility] LABORATORY Lymphocytes % 12.2 % [facility] Lymphocytes Abs 1.0 0.9 - 3.2 [facility] x10(3)/[facility] LABORATORY Monocytes % 9.5 % [facility] Monocyte Abs 0.8 0.3 - 0.9 [facility] x10(3)/[facility] LABORATORY Eosinophils % 1.8 % [facility] Eosinophils Abs 0.1 0.0 - 0.4 [facility] x10(3)/[facility] LABORATORY Basophils % 0.5 % [facility] Basophils Abs 0.0 0.0 - 0.1 [facility] x10(3)/[facility] LABORATORY Immature Gran % 0.60 % [...] Organization Address City/State/[place] [address] (ABNORMAL) Hemogram (12/12/2021 4:51 AM EDT) Analysis Performed At Patho logist Time Signature WBC 7.9 4.0 - 9.5 [facility] x10(3)/[facility] LABORATORY RBC 4.19 (L) 4.58 - [facility] 5.54 [facility] x[facility](6[facility] LABORATORY Hemoglobin 12.1 (L) 13.7 - [facility] 16.5 g/dL [facility] Hematocrit 36.7 (L) 40.5 - [facility] 48.5 % [facility] MCV 87.6 82.9 - [facility] 93.1 [facility] LABORATORY MCH 28.9 27.5 - [facility] 32.1 pg [facility] MCHC 33.0 32.0 - [facility] 35.7 g/dL [facility] Platelets 231 145 - 357 [facility] x10(3)/[facility] LABORATORY RDWSD 47.2 (H) 36.0 - [facility] 45.0 [facility] LABORATORY RDWCV 14.6 (H) 11.4 - [facility] R[facility]AN 13.8 % [facility] MPV 9.5 7.6 - 12.9 [facility] LABORATORY nRBC % Auto 0.0 % [facility] nRBC Abs Auto 0.000 0.000 - [facility]AN 0.000 [facility] x10(3)/[facility] LABORATORY Specimen Anatomical Collection Method Collection Time Receive d Time (Source) Location / / Volume Laterality Blood 12/12/2021 4:51 AM 2 5:06 EDT AM EDT Resulting Agency Comment Spec In Lab Bijan Sun MD HEMATOLOGY ORDERABLES Performing Organization Address City/State/[place] [address] (ABNORMAL) Prothrombin Time (12/12/2021 4:51 AM EDT) P athologist Signature PT 14.9 (H) 9.4 - 12.5 [facility] LABORATORY INR 1.3 [facility] [...] HEMATOLOGY ORDERABLES Performing Organization Address City/[facility]/[place]IP [place] [address] (ABNORMAL) BMP w/fasting Glucose (12/12/2021 4:51 AM EDT) P athologist Signature Glucose 152 (H) 65 - 99 [facility] Fasting mg/dL [facility] Comment: ?Fasting* Glucose Interpretive C [...] BUN 52 (H) 10 - 20 mg/dL [facility] Creatinine 1.72 (H) 0.80 - 1.50 mg/dL [place] [...] 15 mmol/L [facility] Calcium 8.9 8.5 - [...] Organization Address City/State/ZIP Code Phon [place] [address] Magnesium (12/12/2021 4:51 AM EDT) athologist Signature Magnesium 1.02 0.69 - 1.07 [facility] mmol/L [facility] Specimen Anatomical Collection Method Collection Time Receive d Time (Source) Location / / Volume Laterality Blood 12/12/2021 4:51 AM 2 5:06 EDT AM EDT Resulting Agency Comment Spec In Lab Iker Cuevas MD CHEMISTRY ORDERABLES Performing Organization Address City/State/ZIP Code Phon e Number [address] POCT Glucose (12/12/2021 3:43 AM EDT) athologist Signature POC Glucose 138 65 - 199 [facility] mg/dL [facility] Comment: Supplemental ranges: <140 mg/dL before meals <180 mg/dL all other times of the day Specimen Anatomical Collection Method Collection Time Receive d Time (Source) Location / / Volume Laterality Blood 12/12/2021 3:43 AM 2 3:43 EDT AM EDT Iker Cuevas MD POINT OF CARE TEST ORDERABLE S Performing Organization Address City/State/ZIP Code Phon e Number [address] POCT Glucose (12/11/2021 11:44 PM EDT) athologist Signature POC Glucose 124 65 - 199 [facility] mg/dL [facility] Comment: Supplemental ranges: <140 mg/dL before meals <180 mg/dL all other times of the day Specimen Anatomical Collection Method Collection Time Receive d Time (Source) Location / / Volume Laterality Blood 12/11/2021 11:44 12/11/2021 PM EDT 11:44 PM EDT Iker Cuevas MD POINT OF CARE TEST ORDERABLE S Performing Organization Address City/State/[place] [address] (ABNORMAL) POCT Glucose (12/11/2021 8:12 PM EDT) athologist Signature POC Glucose 200 (H) 65 - 199 [place] mg/dL [facility] Comment: Supplemental ranges: <140 mg/dL before meals <180 mg/dL all other times of the day Specimen Anatomical Collection Method Collection Time Receive d Time (Source) Location / / Volume Laterality Blood 12/11/2021 8:12 PM 2 8:12 EDT PM EDT Iker Cuevas MD POINT OF CARE TEST ORDERABLE S Performing Organization Address City/State/[place] [address] (ABNORMAL) POCT Glucose (12/11/2021 6:50 PM EDT) athologist Signature POC Glucose 245 (H) 65 - 199 [facility] mg/dL [facility] Comment: Supplemental ranges: <140 mg/dL before meals <180 mg/dL all other times of the day Specimen Anatomical Collection Method Collection Time Receive d Time (Source) Location / / Volume Laterality Blood 12/11/2021 6:50 PM 2 6:50 EDT PM EDT Iker Cuevas MD POINT OF CARE TEST ORDERABLE S Performing Organization Address City/State/ZIP [place] [address] (ABNORMAL) POCT Glucose (12/11/2021 4:00 PM EDT) athologist Signature POC Glucose 383 (H) 65 - 199 [place] mg/dL [facility] Comment: Supplemental ranges: <140 mg/dL before meals <180 mg/dL all other times of the day Specimen Anatomical Collection Method Collection Time Receive d Time (Source) Location / / Volume Laterality Blood 12/11/2021 4:00 PM 2 4:00 EDT PM EDT Iker Cuevas MD POINT OF CARE TEST ORDERABLE S Performing Organization Address City/State/ZIP [place] [address] (ABNORMAL) POCT Glucose (12/11/2021 12:01 PM EDT) P athologist Signature POC Glucose 342 (H) 65 - 199 [facility] mg/dL [facility] Comment: Supplemental ranges: <140 mg/dL before meals <180 mg/dL all other times of the day Specimen Anatomical Collection Method Collection Time Receive d Time (Source) Location / / Volume Laterality Blood 12/11/2021 12:01 12/11/2021 PM EDT 12:01 PM EDT Iker Cuevas MD POINT OF CARE TEST ORDERABLE S Performing Organization Address City/State/Z[place] [address] COVID-19 PCR (12/11/2021 10:13 AM EDT) Patholo gist Method Time Signature SARS-CoV-2 Not Detected Not Detected BARBARA RNA [facility] Comment: This result should [...] diagnosis of COVID-19 is performed using the [employer] m RONNA S-CoV-2 Assay as authorized by the FDA Emergency Use Authorization (EUA). This EUA assay is intended for In-vitro Diagnostic (IVD) use with respiratory sp ecimens such as nasopharyngeal swabs collected from individuals during the ac terrence phase of infection. This assay is performed based on the instructions for use provided by [employer] and additional guidance provided by CDC and FDA. Testing is performed in the Clinical Genomics and Advanced Technolog y Laboratory within the Department of Pathology and Laboratory Medicine at [facility], certified under the Clinical Laboratory Improvement Amendments [...] is infected. As required or requested by [facility], positive specimens may be sent for [...] clinical management guidance information are available at [facility] CDC Coronavirus Disease 2019 (COVID-19) webpage under Information fo r Healthcare Professionals (https://www.cdc.gov/coronavirus/2019-nc ov/hcp/index.html) Additional information about this and ot her EUA tests can be found in provider and patient fact sheets at the following FDA website: https://www.fda.gov/medical-devices/kdbybpegsfc-sobbsht-4577-qhoug-17-gskmyoawj- agi-qqbfqyjwnreoqw-mgugljb-devices/xkaza-qopqiqoomsv-gxip SARS-Cov-2 RNA Source NEWSPAPER MANAGER Swab [facility] Specimen (Source) Anatomical Collection Method Collection Time Re ceived Time Location / / Volume Laterality Nasopharyngeal Swab 12/11/2021 10:13 0503/2022 AM EDT 11:16 AM EDT Comment: Symptoms->Surveillance Resulting Agency Comment Spec In Lab Iker Cuevas MD MICROBIOLOGY - GENERAL ORDER [place] Performing Organization Address City/State/[place] [address] POCT Glucose (12/11/2021 7:34 AM EDT) P athologist Signature POC Glucose 198 65 - 199 [facility] mg/dL [facility] Comment: Supplemental ranges: <140 mg/dL before meals <180 mg/dL all other times of the day Specimen Anatomical Collection Method Collection Time Receive d Time (Source) Location / / Volume Laterality Blood 12/11/2021 7:34 AM 2 7:34 EDT AM EDT Iker Cuevas MD POINT OF CARE TEST ORDERABLE S Performing Organization Address City/State/[place] [address] (ABNORMAL) POCT Glucose (12/11/2021 5:07 AM EDT) athologist Signature POC Glucose 208 (H) 65 - 199 [facility]dL [facility] Comment: Supplemental ranges: <140 mg/dL before meals <180 mg/dL all other times of the day Specimen Anatomical Collection Method Collection Time Receive d Time (Source) Location / / Volume Laterality Blood 12/11/2021 5:07 AM 2 5:07 EDT AM EDT Iker Cuevas MD POINT OF CARE TEST ORDERABLE S Performing Organization Address City/[facility]/ZIP [place] [address] (ABNORMAL) Differential, Automated (12/11/2021 4:28 AM EDT) [facility] gist Method Time Signature Neutrophils % 79.6 % [facility] LABORATORY Neutr Abs (ANC) 7.01 (H) 1.70 - [facility] 6.10 [facility] x10(3)/[facility] L LABORATORY Lymphocytes % 9.1 % [facility]ORY Lymphocytes Abs 0.8 (L) 0.9 - 3.2 [facility] x10(3)/[facility] LABORATORY Monocytes % 9.2 % [facility] Monocyte Abs 0.8 0.3 - 0.9 [facility] x10(3)/[facility] LABORATORY Eosinophils % 1.3 % [facility] LABORATORY Eosinophils Abs 0.1 0.0 - 0.4 [facility] x10(3)/[facility] LABORATORY Basophils % 0.5 % [facility] LABORATORY Basophils Abs 0.0 0.0 - 0.1 [facility] x10(3)/[facility] LABORATORY Immature Gran % 0.30 [...] 0.04 x10(3)/[facility] LABORATORY Specimen Anatomical Collection Method Collection Time Receive d Time (Source) Location / / Volume Laterality Blood 12/11/2021 4:28 AM 4:37 EDT AM EDT Resulting Agency Comment Spec In Lab Bijan Sun MD HEMATOLOGY ORDERABLES Performing Organization Address City/State/ZIP [place] [address] (ABNORMAL) Hemogram (12/11/2021 4:28 AM EDT) Analysis Performed At Patho logist Time Signature WBC 8.8 4.0 - 9.5 [facility] x10(3)/[facility] LABORATORY RBC 4.15 (L) 4.58 - [facility] 5.54 [facility] x[facility](6[facility] LABORATORY Hemoglobin 11.9 (L) 13.7 - [facility] 16.5 g/dL [facility] Hematocrit 36.9 (L) 40.5 - [facility] 48.5 % [facility] MCV 88.9 82.9 - [facility] 93.1 fL [facility] MCH 28.7 27.5 - [facility] 32.1 pg [facility] MCHC 32.2 32.0 - [facility] 35.7 g/dL [facility] Platelets 211 145 - 357 [facility] x10(3)/[facility] LABORATORY RDWSD 48.3 (H) 36.0 - [facility] 45.0 [facility] LABORATORY RDWCV 14.8 (H) 11.4 - [facility] 13.8 % [facility] LABORATORY MPV 9.6 7.6 - 12.9 [facility] nRBC % Auto 0.0 % [facility] LABORATORY nRBC Abs Auto 0.000 0.000 - [place] [facility] 0.000 [facility] x10(3)/[facility] LABORATORY Specimen Anatomical Collection Method Collection Time Receive d Time (Source) Location / / Volume Laterality Blood 12/11/2021 4:28 AM 2 4:37 EDT AM EDT Resulting Agency Comment Spec In Lab Bijan Sun MD HEMATOLOGY ORDERABLES Performing Organization Address City/[facility]/ZIP Code Phon e Number [address] (ABNORMAL) Prothrombin Time (12/11/2021 4:28 AM EDT) P athologist Signature PT 17.7 (H) 9.4 - 12.5 [facility] LABORATORY INR 1.6 [facility] LABORATORY Comment: An INR [...] HEMATOLOGY ORDERABLES Performing Organization Address City/[facility]/ZIP Code Phon e Number [address] (ABNORMAL) BMP w/fasting Glucose (12/11/2021 4:28 AM EDT) P athologist Signature Glucose 207 (H) 65 - 99 [facility] Fasting mg/dL [facility] LABOR[facility]ORY Comment: ?Fasting* Glucose Interpretive C [...] BUN 49 (H) 10 - 20 mg/dL [facility] LABORATORY Creatinine 1.43 0.80 - 1.50 mg/dL [place] [...] Estimated GFR 48 (L) >=60 mL/min/1.73 m?? [facility] [...] Address City/State/ZIP Code Phon e Number [address] Magnesium (12/11/2021 4:28 AM EDT) athologist Signature Magnesium 1.04 0.69 - 1.07 [facility] mmol/L [facility] LABORATORY Specimen Anatomical Collection Method Collection Time Receive d Time (Source) Location / / Volume Laterality Blood 12/11/2021 4:28 AM 2 4:37 EDT AM EDT Resulting Agency Comment Spec In Lab Iker Cuevas MD CHEMISTRY ORDERABLES Performing Organization Address City/[facility]/ZIP [place] [address] POCT Glucose (12/11/2021 3:58 AM EDT) athologist Signature POC Glucose 189 65 - 199 [facility] mg/dL [facility] Comment: Supplemental ranges: <140 mg/dL before meals <180 mg/dL all other times of the day Specimen Anatomical Collection Method Collection Time Receive d Time (Source) Location / / Volume Laterality Blood 12/11/2021 3:58 AM 2 3:58 EDT AM EDT Iker Cuevas MD POINT OF CARE TEST ORDERABLE S Performing Organization Address City/State/ZIP Code Phon e Number [address] (ABNORMAL) POCT Glucose (12/10/2021 11:45 PM EDT) athologist Signature POC Glucose 205 (H) 65 - 199 [facility] mg/dL [facility] LAB[facility] Comment: Supplemental ranges: <140 mg/dL before meals <180 mg/dL all other times of the day Specimen Anatomical Collection Method Collection Time Receive d Time (Source) Location / / Volume Laterality Blood 12/10/2021 11:45 12/10/2021 PM EDT 11:45 PM EDT Iker Cuevas MD POINT OF CARE TEST ORDERABLE S Performing Organization Address City/[facility]/ZIP [place] [address] (ABNORMAL) POCT Glucose (12/10/2021 7:54 PM EDT) athologist Signature POC Glucose 225 (H) 65 - 199 [facility] mg/dL [facility] Comment: Supplemental ranges: <140 mg/dL before meals <180 mg/dL all other times of the day Specimen Anatomical Collection Method Collection Time Receive d Time (Source) Location / / Volume Laterality Blood 12/10/2021 7:54 PM 2 7:54 EDT PM EDT Iker Cuevas MD POINT OF CARE TEST ORDERABLE S Performing Organization Address City/[facility]/ZIP [place] [address] Potassium (12/10/2021 7:46 PM EDT) athologist Signature Potassium 4.2 3.5 - 5.0 [facility] mmol/L [facility] LAB[facility] Comment: Please note: ??Patients with [...] - [place]/ZIP [place] [address] (ABNORMAL) Basic Metabolic Panel (non-fasting) (12/10/2021 6:12 PM EDT) athologist Signature Glucose Lvl 246 (H) 65 - 199 [facility] mg/dL [facility] Comment: Diabetes: >=200 mg/dL plus symp toms BUN 50 (H) 10 - 20 mg/dL [facility] LABORATORY Creatinine 1.39 0.80 - 1.50 mg/dL [facility] LABORATORY Sodium 138 135 - [...] 107 mmol/L [facility] LABORATORY CO2 22 22 - 31 mmol/L [facility] LABOR[facility]ORY Anion Gap 16 (H) 5 - 15 mmol/L [facility] LABORATORY Calcium 8.3 (L) 8.5 - 10.5 mg/dL [facility] LABORATORY Estimated GFR 49 (L) >=60 mL/min/1.73 m?? [facility] [...] Address City/State/ZIP [place] [address] POCT Glucose (12/10/2021 4:59 PM EDT) P athologist Signature POC Glucose 158 65 - 199 [facility] mg/dL [facility] LAB[facility] Comment: Supplemental ranges: <140 mg/dL before meals <180 mg/dL all other times of the day Specimen Anatomical Collection Method Collection Time Receive d Time (Source) Location / / Volume Laterality Blood 12/10/2021 4:59 PM 2 4:59 EDT PM EDT Iker Cuevas MD POINT OF CARE TEST ORDERABLE S Performing Organization Address City/[facility]/ZIP [place] [address] (ABNORMAL) POCT Glucose (12/10/2021 12:43 PM EDT) P athologist Signature POC Glucose 241 (H) 65 - 199 [facility] mg/dL [facility] LAB[facility] Comment: Supplemental ranges: <140 mg/dL before meals <180 mg/dL all other times of the day Specimen Anatomical Collection Method Collection Time Receive d Time (Source) Location / / Volume Laterality Blood 12/10/2021 12:43 12/10/2021 PM EDT 12:43 PM EDT Iker Cuevas MD POINT OF CARE TEST ORDERABLE S Performing Organization Address City/[facility]/ZIP Code Phon e Number [address] EKG 12 Lead (12/10/2021 11:17 AM EDT) Component Value Ref Range Test Analysis Performed Pathologis t Method Time At Signature Ventricular rate 62 BPM MUSE SYSTEM Atrial Rate 62 BPM MUSE SYSTEM P-R Interval 142 ms MUSE SYSTEM QRS Duration 100 ms MUSE SYSTEM Q-T Interval 434 ms MUSE SYSTEM QTC Calculated 440 ms MUSE SYSTEM (Bezet) Calculated P [place] 34 degrees MUSE SYSTEM Calculated R Hemet -39 degrees MUSE SYSTEM Calculated T [place] 92 degrees MUSE SYSTEM INTERPRETATION Normal sinus [...] SYSTEM - 12/10/2021 12:04 PM E DT ?[facility] ? Cardiac Cathete rization/Intervention Report ? Patient Name: Don Fatima ? Procedure Date: 12/10/2021 ? A #: [id number] ? Primary Physician: Vitaliy Nobles ? Case #: [id number] ? File Name: [id number] ? Catheterization Order Number: [id number] ? [facility] ? Final Report [place], [place] ? Patient Name: ? Don E. Stewa rt ? ID#: ?[id number] ? : ?1945 ? Procedure Date: ? [...] ?designated as ASA Class III. Th e [facility] clinical frailty scale is 5: Mildly [...] procedure was Urgent. The indication for ?the operations label clerk visit is ACS great er than 24 [...] ?3.75 guiding catheter and a 3.5 Fr [facility] [place] 20 Mhz using Manual ?pullback. ??Imaging was [...] ?3.75 guiding catheter and a 3.5 Fr [facility] [place] 20 Mhz using Manual ?pullback. ??Imaging was [...] require ?modification of this regimen. C onsult [facility] Interventional Cardiology for ?questions. [...] Procedure Note Vitaliy Nobles MD - 01/14/2022 [facility] Cardiac Catheterization/Intervention Re port Patient Name: Don Fatima Procedure Date: 12/10/2021 A #: [id number] Primary Physician: Vitaliy Nobles Case #: [id number] File Name: [id number] Catheterization Order Number: [id number] [facility] Electronic [employer] Technician [facility] Final Report [place], [place] Patient Name: Don Fatima ID#: [...] e was Urgent. The indication for the operations label clerk visit is ACS greater than 24 hrs [...] and a 3.5 Fr [facility] [place] 20 Mhz using Manual pullback. Imaging was [...] and a 3.5 Fr [facility] [place] 20 Mhz using Manual pullback. Imaging was [...] require modification of this regimen. Consult D [facility] Interventional Cardiology for questions. The 1 year [...] POC Glucose 262 (H) 65 - 199 [facility] mg/dL [facility] Comment: Supplemental ranges: <140 mg/dL before meals <180 mg/dL all other times of the day Specimen Anatomical Collection Method Collection Time Receive d Time (Source) Location / / Volume Laterality Blood 12/10/2021 10:30 12/10/2021 AM EDT 10:30 AM EDT Iker Cuevas MD POINT OF CARE TEST ORDERABLE S Performing Organization Address City/State/Z[place] [address] (ABNORMAL) POCT Glucose (12/10/2021 9:48 AM EDT) athologist Signature POC Glucose 279 (H) 65 - 199 [facility] mg/dL [facility] Comment: Supplemental ranges: <140 mg/dL before meals <180 mg/dL all other times of the day Specimen Anatomical Collection Method Collection Time Receive d Time (Source) Location / / Volume Laterality Blood 12/10/2021 9:48 AM 2 9:48 EDT AM EDT Iker Cuevas MD POINT OF CARE TEST ORDERABLE S Performing Organization Address City/[facility]/ZIP [place] [address] (ABNORMAL) POCT Glucose (12/10/2021 9:07 AM EDT) athologist Signature POC Glucose 268 (H) 65 - 199 [facility] mg/dL [facility] Comment: Supplemental ranges: <140 mg/dL before meals <180 mg/dL all other times of the day Specimen Anatomical Collection Method Collection Time Receive d Time (Source) Location / / Volume Laterality Blood 12/10/2021 9:07 AM 2 9:07 EDT AM EDT Iker Cuevas MD POINT OF CARE TEST ORDERABLE S Performing Organization Address City/State/Z[place] [address] (ABNORMAL) Point of Care Blood Gas Historical (12/10/2021 9:04 AM EDT) Patholo gist Method Time Signature POC pH 7.40 7.35 - [facility] 7.45 [facility] LABORATORY POC PCO2 40 35 - 45 [facility] mmHg [facility] LABORATORY POC PO2 63 (L) 85 - 104 [facility] LABORATORY POC Base Excess 0.0 -3.0 - 3.0 [facility] K mmol/L [facility] LABORATORY POC HCO3 24.8 20.0 - [facility] 26.0 [facility] POC Sodium 143 135 - 145 [facility] mmol/L [facility] LABORATORY POC Potassium 3.7 3.5 - 5.0 [facility] mmol/L [facility] POC Ionized Ca 1.07 (L) 1.15 - [facility] 1.[address] [facility] mmol[address] [facility] LABORATORY POC Hematocrit 30.0 (L) 40.0 - [facility] 51.0 % [facility] LABORATORY POC Calc Hgb 10.2 (L) 13.7 - [facility] 17.5 g/dL [facility] LABORATORY Comment: The calculation of hemoglobin f rom hematocrit assumes a normal MCHC. POC Bgas Loc CC LAB [facility] LABORATORY Specimen Anatomical Collection Method Collection Time Receive d Time (Source) Location / / Volume Laterality Blood 12/10/2021 9:04 AM 2 EDT 12:00 PM EDT Ifeanyi Truong MD CHEMISTRY ORDERABLES Performing Organization Address City/State/Z[place] [address] (ABNORMAL) POCT Glucose (12/10/2021 7:19 AM EDT) P athologist Signature POC Glucose 274 (H) 65 - 199 [facility] mg/dL [facility] LABOR[facility]ORY Comment: Supplemental ranges: <140 mg/dL before meals <180 mg/dL all other times of the day Specimen Anatomical Collection Method Collection Time Receive d Time (Source) Location / / Volume Laterality Blood 12/10/2021 7:19 AM 2 7:19 EDT AM EDT Iker Cuevas MD POINT OF CARE TEST ORDERABLE S Performing Organization Address City/[facility]/ZIP [place] [address] Heparin (unfractionated) Level (12/10/2021 4:25 AM EDT) P athologist Signature Heparin UFH 0.69 IU/mL [facility] LABORATORY Comment: Heparin (anti-Xa) levels should [...] HEMATOLOGY ORDERABLES Performing Organization Address City/[facility]/ZIP Code Phon e Number [address] (ABNORMAL) Differential, Automated (12/10/2021 4:25 AM EDT) Patholo gist Method Time Signature Neutrophils % 79.8 % [facility] LABORATORY Neutr Abs (ANC) 7.47 (H) 1.70 - [facility] 6.10 [facility] x10(3)/[facility] LABORATORY Lymphocytes % 10.6 % [facility] LABORATORY Lymphocytes Abs 1.0 0.9 - 3.2 [facility] x10(3)/[facility] LABORATORY Monocytes % 8.4 % [facility] LABORATORY Monocyte Abs 0.8 0.3 - 0.9 [facility] x10(3)/[facility] LABORATORY Eosinophils % 0.6 % [facility] LABORATORY Eosinophils Abs 0.1 0.0 - 0.4 [facility] x10(3)/[facility] LABORATORY Basophils % 0.2 % [facility] LABORATORY Basophils Abs 0.0 0.0 - 0.1 [facility] x10(3)/[facility] LABORATORY Immature Gran [...] Melisa Gran Abs 0.04 0.00 - 0.04 x10(3)/[facility] LABORATORY Specimen Anatomical Collection Method Collection Time Receive d Time (Source) Location / / Volume Laterality Blood 12/10/2021 4:25 AM 4:34 EDT AM EDT Resulting Agency Comment Spec In Lab Morgan BROWN HEMATOLOGY ORDERABLES Performing Organization Address City/State/Z[place] [address] (ABNORMAL) Hemogram (12/10/2021 4:25 AM EDT) Analysis Performed At Patho logist Time Signature WBC 9.4 4.0 - 9.5 [facility] x10(3)/[facility] LABORATORY RBC 3.81 (L) 4.58 - [facility] 5.54 [facility] x10(6)/[facility] LABORATORY Hemoglobin 11.1 (L) 13.7 - [facility] 16.5 g/dL [facility] LABORATORY Hematocrit 34.0 (L) 40.5 - [facility] 48.5 % [facility] LABORATORY MCV 89.2 82.9 - [facility] 93.1 fL [facility] LABORATORY MCH 29.1 27.5 - [facility] 32.1 pg [facility] LABORATORY MCHC 32.6 32.0 - [facility] 35.7 g/dL [facility] LABORATORY Platelets 183 145 - 357 [facility] x10(3)/[facility] LABORATORY RDWSD 49.9 (H) 36.0 - [facility] 45.0 [facility] LABORATORY RDWCV 15.2 (H) 11.4 - [facility] 13.8 % [facility] LABORATORY MPV 9.8 7.6 - 12.9 [facility] LABORATORY nRBC % Auto 0.0 % [facility] LABORATORY nRBC Abs Auto 0.000 0.000 - [facility] 0.000 [facility] x10(3)/[facility] LABORATORY Specimen Anatomical Collection Method Collection Time Receive d Time (Source) Location / / Volume Laterality Blood 12/10/2021 4:25 AM 2 4:34 EDT AM EDT Resulting Agency Comment Spec In Lab Morgan BROWN HEMATOLOGY ORDERABLES Performing Organization Address City/[facility]/ZIP [place] [address] (ABNORMAL) Prothrombin Time (12/10/2021 4:25 AM EDT) P athologist Signature PT 20.0 (H) 9.4 - 12.5 [facility] LABORATORY INR 1.7 [facility] LABORATORY Comment: An INR [...] HEMATOLOGY ORDERABLES Performing Organization Address City/[facility]/Z[place] [address] (ABNORMAL) BMP w/fasting Glucose (12/10/2021 4:25 AM EDT) athologist Signature Glucose 210 (H) 65 - 99 [facility] Fasting mg/dL [facility] LABORATORY Comment: ?Fasting* Glucose Interpretive C [...] BUN 54 (H) 10 - 20 mg/dL [facility] LABORATORY Creatinine 1.52 (H) 0.80 - 1.50 mg/dL [place] 15 mmol/L [facility] LABORATORY Calcium 8.0 (L) 8.5 - 10.5 mg/dL [facility] LABORATORY Estimated GFR 44 (L) >=60 mL/min/1.73 m?? [facility] [...] [place] [address] Magnesium (12/10/2021 4:25 AM EDT) P athologist Signature Magnesium 0.95 0.69 - 1.07 [facility] mmol/L [facility] LABORATORY Specimen Anatomical Collection Method Collection Time Receive d Time (Source) Location / / Volume Laterality Blood 12/10/2021 4:25 AM 2 4:34 EDT AM EDT Resulting Agency Comment Spec In Lab Iker Cuevas MD CHEMISTRY ORDERABLES Performing Organization Address City/[facility]/ZIP [place] [address] POCT Glucose (12/10/2021 1:58 AM EDT) P athologist Signature POC Glucose 164 65 - 199 [facility] mg/dL [facility] LABORATORY Comment: Supplemental ranges: <140 mg/dL before meals <180 mg/dL all other times of the day Specimen Anatomical Collection Method Collection Time Receive d Time (Source) Location / / Volume Laterality Blood 12/10/2021 1:58 AM 2 1:58 EDT AM EDT Iker Cuevas MD POINT OF CARE TEST ORDERABLE S Performing Organization Address City/[facility]/ZIP Code Phon [place] [address] (ABNORMAL) POCT Glucose (12/09/2021 9:02 PM EDT) athologist Signature POC Glucose 313 (H) 65 - 199 [facility] mg/dL [facility] LABORATORY Comment: Supplemental ranges: <140 mg/dL before meals <180 mg/dL all other times of the day Specimen Anatomical Collection Method Collection Time Receive d Time (Source) Location / / Volume Laterality Blood 12/09/2021 9:02 PM 2 9:02 EDT PM EDT Iker Cuevas MD POINT OF CARE TEST ORDERABLE S Performing Organization Address City/State/Z[place] [address] Heparin (unfractionated) Level (12/09/2021 7:30 PM EDT) athologist Signature Heparin UFH 0.48 IU/mL [facility] LABORATORY Comment: Heparin (anti-Xa) levels should [...] Address City/State/Z[place] [address] (ABNORMAL) Basic Metabolic Panel (non-fasting) (12/09/2021 7:30 PM EDT) P athologist Signature Glucose Lvl 372 (H) 65 - 199 [facility] mg/dL [facility] LABORATORY Comment: Diabetes: >=200 mg/dL plus symp toms BUN 56 (H) 10 - 20 mg/dL [facility] LABORATORY Creatinine 1.75 (H) 0.80 - 1.50 mg/dL [facility] LABORATORY Sodium 138 135 - [...] 107 mmol/L [facility] LABORATORY CO2 22 22 - 31 mmol/L [facility] LABORATORY Anion Gap 14 5 - 15 mmol/L [facility] Calcium 8.1 (L) 8.5 - 10.5 mg/dL [facility] Estimated GFR 37 (L) >=60 mL/min/1.73 m?? [facility] [...] [place] [address] (ABNORMAL) POCT Glucose (12/09/2021 6:34 PM EDT) athologist Signature POC Glucose 408 (H) 65 - 199 BARBARA RYAN mg/dL [facility] Comment: Supplemental ranges: <140 mg/dL before meals <180 mg/dL all other times of the day Specimen Anatomical Collection Method Collection Time Receive d Time (Source) Location / / Volume Laterality Blood 12/09/2021 6:34 PM 2 6:34 EDT PM EDT Iker Cuevas MD POINT OF CARE TEST ORDERABLE S Performing Organization Address City/[facility] [place] [facility] [place] [address] (ABNORMAL) POCT Glucose (12/09/2021 6:32 PM EDT) athologist Signature POC Glucose 356 (H) 65 - 199 [place] RYAN mg/dL [facility] Comment: Supplemental ranges: <140 mg/dL before meals <180 mg/dL all other times of the day Specimen Anatomical Collection Method Collection Time Receive d Time (Source) Location / / Volume Laterality Blood 12/09/2021 6:32 PM 2 6:32 EDT PM EDT Iker Cuevas MD POINT OF CARE TEST ORDERABLE S Performing Organization Address City/[facility] [place] [facility] [place] [address] (ABNORMAL) POCT Glucose (12/09/2021 4:19 PM EDT) athologist Signature POC Glucose 347 (H) 65 - 199 [place] RYAN mg/dL [facility] Comment: Supplemental ranges: <140 mg/dL before meals <180 mg/dL all other times of the day Specimen Anatomical Collection Method Collection Time Receive d Time (Source) Location / / Volume Laterality Blood 12/09/2021 4:19 PM 2 4:19 EDT PM EDT Iker Cuevas MD POINT OF CARE TEST ORDERABLE S Performing Organization Address City/State/[place] [address] Heparin (unfractionated) Level (12/09/2021 1:29 PM EDT) athologist Signature Heparin UFH 0.42 IU/mL [facility] Comment: Heparin (anti-Xa) levels should [...] HEMATOLOGY ORDERABLES Performing Organization Address City/[facility] [place] [facility] [place] [address] (ABNORMAL) POCT Glucose (12/09/2021 12:02 PM EDT) athologist Signature POC Glucose 235 (H) 65 - 199 [facility] mg/dL [facility] Comment: Supplemental ranges: <140 mg/dL before meals <180 mg/dL all other times of the day Specimen Anatomical Collection Method Collection Time Receive d Time (Source) Location / / Volume Laterality Blood 12/09/2021 12:02 12/09/2021 PM EDT 12:02 PM EDT Iker Cuevas MD POINT OF CARE TEST ORDERABLE S Performing Organization Address City/State/[place] [address] (ABNORMAL) POCT Glucose (12/09/2021 9:44 AM EDT) P athologist Signature POC Glucose 214 (H) 65 - 199 [facility] Comment: Supplemental ranges: <140 mg/dL before meals <180 mg/dL all other times of the day Specimen Anatomical Collection Method Collection Time Receive d Time (Source) Location / / Volume Laterality Blood 12/09/2021 9:44 AM 2 9:44 EDT AM EDT Iker Cuevas MD POINT OF CARE TEST ORDERABLE S Performing Organization Address City/State/ZIP Code Phon e Number [place] [phone] [facility] Drive EKG 12 Lead (12/09/2021 7:57 AM EDT) Component Value Ref Range Test Analysis Performed Pathologis t Method Time At Signature Ventricular rate 101 BPM MUSE SYSTEM Atrial Rate 101 BPM MUSE SYSTEM P-R Interval 150 ms MUSE SYSTEM QRS Duration 112 ms MUSE SYSTEM Q-T Interval 364 ms MUSE SYSTEM QTC Calculated 471 ms MUSE SYSTEM (Bezet) Calculated P Hemet 59 degrees MUSE SYSTEM Calculated R Hemet -42 degrees MUSE SYSTEM Calculated T Hemet 102 degrees MUSE SYSTEM INTERPRETATION Sinus tachycardia Occasional Premature ventricular com plexes MUSE SYSTEM Left axis deviation 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) Abnormal ECG When compared with ECG of 08-DEC-2021 16:40, Premature ventricular complexes are now Present Confirmed by MD Fernandez Danette ([id number]) on 12/10/2021 4:55:06 PM Specimen Anatomical Collection Method Collection Time Receive d Time (Source) Location / / Volume Laterality 12/09/2021 7:57 AM 2 4:55 EDT PM EDT Iker Cuevas MD ECG ORDERABLES Performing Organization Address City/State/ZIP Code Phon e Number MUSE SYSTEM (ABNORMAL) POCT Glucose (12/09/2021 7:28 AM EDT) P athologist Signature POC Glucose 263 (H) 65 - 199 [facility] mg/dL [facility] Comment: Supplemental ranges: <140 mg/dL before meals <180 mg/dL all other times of the day Specimen Anatomical Collection Method Collection Time Receive d Time (Source) Location / / Volume Laterality Blood 12/09/2021 7:28 AM 2 7:28 EDT AM EDT Iker Cuevas MD POINT OF CARE TEST ORDERABLE S Performing Organization Address City/State/[place] [address] (ABNORMAL) Hemoglobin A1c (12/09/2021 [...] Mellitus, Diabetes Care 2013; 36: Suppl. 1, S67-84 Est Avg Gluc See note mg/dL [place] [...] with hemoglobinopathies. Additional resources are available on [facility] website. Macario HAMMOND, Ruthann J, Deysi R, et al. ??Tr anslating the A1C assay into estimated average glucose values. ??Diabetes Care 2008:31(8):1975-5235. Specimen Anatomical Collection Method Collection Time Receive d Time (Source) Location / / Volume Laterality Blood Venous Draw / 12/09/2021 6:18 AM 12/10/19 22 Unknown EDT 12:24 PM EDT Resulting Agency Comment Spec In Lab Migdalia BROWN CHEMISTRY ORDERABLES Performing Organization Address [facility] [place] [facility] [place]/[facility] [place] [address] (ABNORMAL) Prothrombin Time (12/09/2021 6:18 AM EDT) P athologist Signature PT 26.6 (H) 9.4 - 12.5 [facility] LABORATORY INR 2.3 [facility] Comment: An INR [...] Migdalia BROWN HEMATOLOGY ORDERABLES Performing Organization Address [facility] [place] [facility] [place]/[facility] [place] [address] Heparin (unfractionated) Level (12/09/2021 6:18 AM EDT) P athologist Signature Heparin UFH 0.24 IU/mL [facility] Comment: Heparin (anti-Xa) levels should [...] City/State/ZIP Code Phon e Number [place] [phone] (ABNORMAL) Differential, Automated (12/09/2021 6:18 AM EDT) [facility] gist Method Time Signature Neutrophils % 91.5 % [facility] Neutr Abs (ANC) 15.78 (H) 1.70 - [facility] 6.10 [facility] x10(3)/[facility] L LABORATORY Lymphocytes % 2.9 % [facility] Lymphocytes Abs 0.5 (L) 0.9 - 3.2 [facility] x10(3)/[facility] LABORATORY Monocytes % 4.9 % [facility] Monocyte Abs 0.8 0.3 - 0.9 [facility] x10(3)/[facility] LABORATORY Eosinophils % 0.0 % [facility] Eosinophils Abs 0.0 0.0 - 0.4 [facility] x10(3)/[facility] LABORATORY Basophils % 0.2 % [facility] Basophils Abs 0.0 0.0 - 0.1 [facility] x10(3)/[facility] LABORATORY Immature Gran % 0.50 [...] City/State/ZIP Code Phon e Number [place] [phone] LAB[address] Drive (ABNORMAL) Hemogram (12/09/2021 6:18 AM EDT) Analysis Performed At Patho logist Time Signature WBC 17.2 (H) 4.0 - 9.5 [facility] x10(3)/[facility] LABORATORY RBC 4.32 (L) 4.58 - [facility] RYAN 5.54 [facility] x10(6)/[facility] LABORATORY Hemoglobin 12.6 (L) 13.7 - [facility] 16.5 g/dL [facility] Hematocrit 38.9 (L) 40.5 - [facility] RYAN 48.5 % [facility] MCV 90.0 82.9 - [facility] R[facility] 93.1 [facility] LABORATORY MCH 29.2 27.5 - [facility] 32.1 pg [facility] MCHC 32.4 32.0 - [facility] R[facility] 35.7 g/dL [facility] Platelets 193 145 - 357 [facility] x10(3)/[facility] LABORATORY RDWSD 50.4 (H) 36.0 - [facility] R[facility]AN 45.0 [facility] RDWCV 15.2 (H) 11.4 - [facility] R[facility] 13.8 % [facility] MPV 9.5 7.6 - 12.9 [facility] LABORATORY nRBC % Auto 0.0 % [facility] nRBC Abs Auto 0.000 0.000 - [facility] 0.000 [facility] x10(3)/[facility] LABORATORY Specimen Anatomical Collection Method Collection Time Receive d Time (Source) Location / / Volume Laterality Blood 12/09/2021 6:18 AM 6:33 EDT AM EDT Resulting Agency Comment Spec In Lab Morgan BROWN HEMATOLOGY ORDERABLES Performing Organization Address City/State/ZIP [place] [address] Lipid Panel (Reflex Direct LDL) (12/09/2021 6:18 AM EDT) athologist Signature Chol, Total 105 mg/dL [facility] Comment: Lower Risk: <200 mg/dL Average Risk: 200-239 mg/dL Higher Risk: >bi=625 mg/dL Triglycerides 133 mg/dL [facility] Comment: Average Risk/Lower Risk: <150 mg/dL Borderline High Risk: 150-199 mg/dL High Risk: 200-499 mg/dL Very High Risk: >kv=892 mg/dL HDL 42 mg/dL [facility] Comment: Males: ?? Higher Risk: <40 mg/dL Females: ?? Higher Risk: <50 mg/dL LDL Cholesterol 36 mg/dL [facility] Comment: Lowest Risk: <100 mg/dL Lower Risk: 100-129 mg/dL Borderline High Risk: 130-159 mg/dL High Risk: 160-189 mg/dL Very High Risk: >hs=585 mg/dL Chol/HDL Ratio 2.5 ratio [facility] Lipid Interpretation See Note [facility] Comment: Lipid management should be guided by a p atient? s ASCVD risk, goals and preferences. ACC/AHA Guidelines recommend high intens ity statin if clinical ASCVD or LDL greater than or equal to 190 mg/dL. [email or web address] Adults aged 40-75 with LDL 70-189 mg/dL should have their 10 year ASCVD risk estimated with the ACC/AHA ASCVD risk es timator http://tools.acc.org/SXVOU-Wvcc-Xoxuoxfz r/ Statin should be discussed if risk [...] [place] [address] TSH (12/09/2021 6:18 AM EDT) P athologist Signature TSH 1.60 0.27 - 4.20 BARBAR[facility] DAVIS mcIU/mL [facility] Comment: Reference Interval (mcIU/mL): Females: ??First Trimester: 0.23-3.88 ??Second Trimester: 0.22-3.90 ??Third Trimester: 0.44-4.66 Specimen Anatomical Collection Method Collection Time Receive d Time (Source) Location / / Volume Laterality Blood 12/09/2021 6:18 AM 2 6:33 EDT AM EDT Resulting Agency Comment Spec In Lab Iker Cuevas MD CHEMISTRY ORDERABLES Performing Organization Address City/[facility] [place] [facility] [place] [address] Hepatic Function Panel (12/09/2021 6:18 AM EDT) P athologist Signature Total Protein 7.3 6.1 - 8.0 [place] RYAN g/dL [facility] Albumin 4.2 3.2 - 5.2 [place] RYAN g/dL [facility] AST 25 0 - 39 [facility] unit/L [facility] ALT 15 0 - 55 [facility]L [facility] Alk Phos 75 40 - 130 [facility] unit/L [facility] Total 1.1 0.2 - 1.3 [place] [place] Bilirubin mg/dL [facility] Bili, Direct 0.2 0.0 - 0.3 [facility] mg/dL [facility] Specimen Anatomical Collection Method Collection Time Receive d Time (Source) Location / / Volume Laterality Blood 12/09/2021 6:18 AM 6:33 EDT AM EDT Resulting Agency Comment Spec In Lab Iker Cuevas MD CHEMISTRY ORDERABLES Performing Organization Address City/State/[place] [address] (ABNORMAL) BMP w/fasting Glucose (12/09/2021 6:18 AM EDT) athologist Signature Glucose 235 (H) 65 - 99 [facility] Fasting mg/dL [facility] Comment: ?Fasting* Glucose Interpretive C [...] BUN 49 (H) 10 - 20 mg/dL [facility] R[facility] Creatinine 1.33 0.80 - 1.50 mg/dL [facility] Sodium 139 135 - 145 mmol/L [facility] K [facility] Potassium 4.2 3.5 - 5.0 [...] Estimated GFR 52 (L) >=60 mL/min/1.73 m?? [facility] [...] Organization Address City/State/[place] [address] Magnesium (12/09/2021 6:18 AM EDT) P athologist Signature Magnesium 0.81 0.69 - 1.07 [facility] mmol/L [facility] Specimen Anatomical Collection Method Collection Time Receive d Time (Source) Location / / Volume Laterality Blood 12/09/2021 6:18 AM 2 6:33 EDT AM EDT Resulting Agency Comment Spec In Lab Iker Cuevas MD CHEMISTRY ORDERABLES Performing Organization Address City/[facility] [place] [facility] [place] [address] (ABNORMAL) Troponin (12/09/2021 6:18 AM EDT) P athologist Signature Troponin-T 1.13 (H) 0.00 - BARBARA DAVIS 0.00 ng/mL [facility] Comment: The 99th percentile for Troponin T is le ss than 0.01 ng/mL, any detectable cTnT concentration using this assay should be considered elevated. According to the third universal definit ion of myocardial infarction the following criteria with a clinical prese ntation consistent with acute myocardial ischemia meets the diagnosis for a myocardial infarction (LA). Detection of a rise and/or fall of [...] additional sample may be indicated. Reference: Third [place] Definition of Myocardial Infarction. Journal of the [place] College [employer] 2012;60:1581-98 Specimen Anatomical Collection Method Collection Time Receive d Time (Source) Location / / Volume Laterality Blood 12/09/2021 6:18 AM 2 6:33 EDT AM EDT Resulting Agency Comment Spec In Lab Iker Cuevas MD CHEMISTRY ORDERABLES Performing Organization Address City/[facility] [place] [facility] [place] [address] XR Chest One View [...] questions please contact the health career development counselor that requested your imaging first. ? [...] questions please contact the health career development counselor that requested your imaging first. Amber Sanches MD IMG DX ORDERABLES (ABNORMAL) BLOOD GAS 2 ARTERIAL (12/09/2021 5:14 AM EDT) Analysis Performed At Patho logist Time Signature pH Art 7.43 7.35 - [facility] 7.45 [facility] pCO2 Art 36 35 - 45 [facility] mmHg [facility] pO2 Art 67 (L) 85 - 104 [facility] LABORATORY HCO3 Art 23.4 20.0 - [facility] 26.0 [facility] mmol/L [facility] BE Art -0.9 -3.0 - 3.0 [facility] mmol/L [facility] Hgb Blood Gas 13.2 (L) 13.7 - [facility] 16.5 g/dL [facility] O2HB Art 91.3 (L) 94.0 - [facility] 97.0 % [facility] COHB Art 0.4 % [facility] [...] WB 2.7 (H) 0.5 - 2.2 mmol/L [facility] FIO2 Art 35 % [facility] Flow Art 8.0 LPM [facility] PF Ratio Art 191 [facility] Specimen Anatomical Collection Method Collection Time Receive d Time (Source) Location / / Volume Laterality Blood 12/09/2021 5:14 AM 2 5:14 EDT AM EDT Iker Cuevas MD CHEMISTRY ORDERABLES Performing Organization Address City/[facility] [place] [facility] [place]/Z[place] [address] POCT Glucose (12/09/2021 4:46 AM EDT) athologist Signature POC Glucose 198 65 - 199 [facility] mg/dL [facility] Comment: Supplemental ranges: <140 mg/dL before meals <180 mg/dL all other times of the day Specimen Anatomical Collection Method Collection Time Receive d Time (Source) Location / / Volume Laterality Blood 12/09/2021 4:46 AM 2 4:46 EDT AM EDT Iker Cuevas MD POINT OF CARE TEST ORDERABLE S Performing Organization Address City/[facility] [place] [facility] [place]/Z[place] [address] (ABNORMAL) POCT Glucose (12/09/2021 3:01 AM EDT) P athologist Signature POC Glucose 225 (H) 65 - 199 [facility] mg/dL [facility] Comment: Supplemental ranges: <140 mg/dL before meals <180 mg/dL all other times of the day Specimen Anatomical Collection Method Collection Time Receive d Time (Source) Location / / Volume Laterality Blood 12/09/2021 3:01 AM 2 3:01 EDT AM EDT Iker Cuevas MD POINT OF CARE TEST ORDERABLE S Performing Organization Address City/[facility] [place] [facility] [place]/ZIP [place] [address] (ABNORMAL) POCT Glucose (12/08/2021 10:55 PM EDT) athologist Signature POC Glucose 327 (H) 65 - 199 [facility] mg/dL [facility] Comment: Supplemental ranges: <140 mg/dL before meals <180 mg/dL all other times of the day Specimen Anatomical Collection Method Collection Time Receive d Time (Source) Location / / Volume Laterality Blood 12/08/2021 10:55 12/08/2021 PM EDT 10:55 PM EDT Iker Cuevas MD POINT OF CARE TEST ORDERABLE S Performing Organization Address City/[facility] [place] [facility] [place]/Z[place] [address] Heparin (unfractionated) Level (12/08/2021 10:03 PM EDT) athologist Signature Heparin UFH 0.18 IU/mL [facility]ORY Comment: Heparin (anti-Xa) levels should [...] Address City/State/Z[place] [address] (ABNORMAL) Troponin (12/08/2021 10:03 PM EDT) athologist Signature Troponin-T 0.92 (H) 0.00 - BARBARA ZHAORYAN 0.00 ng/mL [facility] Comment: The 99th percentile for Troponin T is le ss than 0.01 ng/mL, any detectable cTnT concentration using this assay should be considered elevated. According to the third universal definit ion of myocardial infarction the following criteria with a clinical prese ntation consistent with acute myocardial ischemia meets the diagnosis for a myocardial infarction (LA). Detection of a rise and/or fall of [...] additional sample may be indicated. Reference: Third [place] Definition of Myocardial Infarction. Journal of the [place] College [employer] 2012;60:1581-98 Specimen Anatomical Collection Method Collection Time Receive d Time (Source) Location / / Volume Laterality Blood 12/08/2021 10:03 12/08/2021 PM EDT 10:31 PM EDT Resulting Agency Comment Spec In Lab Iker Cuevas MD CHEMISTRY ORDERABLES Performing Organization Address City/[facility] [place] [facility] [place]/Z[place] [address] (ABNORMAL) POCT Glucose (12/08/2021 8:22 PM EDT) athologist Signature POC Glucose 429 (H) 65 - 199 [facility] RYAN mg/dL [facility] Comment: Supplemental ranges: <140 mg/dL before meals <180 mg/dL all other times of the day Specimen Anatomical Collection Method Collection Time Receive d Time (Source) Location / / Volume Laterality Blood 12/08/2021 8:22 PM 2 8:22 EDT PM EDT Iker Cuevas MD POINT OF CARE TEST ORDERABLE S Performing Organization Address City/State/Z[place] [address] (ABNORMAL) POCT Glucose (12/08/2021 7:06 PM EDT) athologist Signature POC Glucose 442 (H) 65 - 199 [facility] mg/dL [facility] Comment: Supplemental ranges: <140 mg/dL before meals <180 mg/dL all other times of the day Specimen Anatomical Collection Method Collection Time Receive d Time (Source) Location / / Volume Laterality Blood 12/08/2021 7:06 PM 2 7:06 EDT PM EDT Iker Cuevas MD POINT OF CARE TEST ORDERABLE S Performing Organization Address City/[facility] [place] [facility] [place]/ZIP [place] [address] Magnesium (12/08/2021 6:02 PM EDT) athologist Signature Magnesium 0.86 0.69 - 1.07 [facility] mmol/L [facility] Specimen Anatomical Collection Method Collection Time Receive d Time (Source) Location / / Volume Laterality Blood 12/08/2021 6:02 PM 2 6:36 EDT PM EDT Resulting Agency Comment Spec In Lab Iker Cuevas MD CHEMISTRY ORDERABLES Performing Organization Address City/State/Z[place] [address] (ABNORMAL) Basic Metabolic Panel (non-fasting) (12/08/2021 6:02 PM EDT) athologist Signature Glucose Lvl 392 (H) 65 - 199 [facility] RYAN mg/dL [facility] Comment: Diabetes: >=200 mg/dL plus symp toms BUN 41 (H) 10 - 20 mg/dL [facility] Creatinine 1.44 0.80 - 1.50 mg/dL [facility] Sodium 138 135 - [...] 107 mmol/L [facility] CO2 20 (L) 22 - 31 mmol/L [facility] Anion Gap 16 (H) 5 - 15 mmol/L [facility] Calcium 8.6 8.5 - 10.5 mg/dL [facility] Estimated GFR 47 (L) >=60 mL/min/1.73 m?? [facility] [...] Organization Address City/State/ZIP Code Phon e Number [facility] [place] [address] (ABNORMAL) Differential, Automated (12/08/2021 6:02 PM EDT) [facility] Method Time Signature Neutrophils % 89.5 % [facility] Neutr Abs (ANC) 13.97 (H) 1.70 - [facility] 6.10 [facility] x10(3)/[facility] L LABORATORY Lymphocytes % 3.7 % [facility] Lymphocytes Abs 0.6 (L) 0.9 - 3.2 [facility] x10(3)/[facility] LABORATORY Monocytes % 6.1 % [facility] Monocyte Abs 1.0 (H) 0.3 - 0.9 [facility] x10(3)/[facility] LABORATORY Eosinophils % 0.0 % [facility] Eosinophils Abs 0.0 0.0 - 0.4 [facility] x10(3)/[facility] LABORATORY Basophils % 0.2 % [facility] Basophils Abs 0.0 0.0 - 0.1 [facility] x10(3)/[facility] LABORATORY Immature Gran % 0.50 [...] Organization Address City/State/Z[place] [address] (ABNORMAL) Hemogram (12/08/2021 6:02 PM EDT) Analysis Performed At Patho logist Time Signature WBC 15.6 (H) 4.0 - 9.5 [facility] LABORATORY RBC 4.05 (L) 4.58 - [facility] RYAN 5.54 [facility] x10(6)/[facility] LABORATORY Hemoglobin 11.8 (L) 13.7 - [facility] 16.5 g/dL [facility] Hematocrit 35.8 (L) 40.5 - [facility] 48.5 % [facility] MCV 88.4 82.9 - [facility] 93.1 [facility] MCH 29.1 27.5 - [facility] 32.1 pg [facility] MCHC 33.0 32.0 - [facility] 35.7 g/dL [facility] Platelets 178 145 - 357 [facility] x10(3)/[facility] LABORATORY RDWSD 49.3 (H) 36.0 - BARBARA RYAN 45.0 [facility] LABORATORY RDWCV 15.1 (H) 11.4 - [facility] 13.8 % [facility] MPV 10.4 7.6 - 12.9 [facility] nRBC % Auto 0.0 % [facility] nRBC Abs Auto 0.000 0.000 - [facility] x[facility](3[facility] LABORATORY Specimen Anatomical Collection Method Collection Time Receive d Time (Source) Location / / Volume Laterality Blood 12/08/2021 6:02 PM 2 6:36 EDT PM EDT Resulting Agency Comment Spec In Lab Morgan BROWN HEMATOLOGY ORDERABLES Performing Organization Address City/State/[place] [address] (ABNORMAL) Troponin (12/08/2021 6:02 PM EDT) P athologist Signature Troponin-T 0.89 (H) 0.00 - BARBARA RYAN 0.00 ng/mL [facility] Comment: The 99th percentile for Troponin T is le ss than 0.01 ng/mL, any detectable cTnT concentration using this assay should be considered elevated. According to the third universal definit ion of myocardial infarction the following criteria with a clinical prese ntation consistent with acute myocardial ischemia meets the diagnosis for a myocardial infarction (LA). Detection of a rise and/or fall of [...] additional sample may be indicated. Reference: Third [place] Definition of Myocardial Infarction. Journal of the [place] [employer] 2012;60:1581-98 Specimen Anatomical Collection Method Collection Time Receive d Time (Source) Location / / Volume Laterality Blood 12/08/2021 6:02 PM 2 6:36 EDT PM EDT Resulting Agency Comment Spec In Lab Iker Cuevas MD CHEMISTRY ORDERABLES Performing Organization Address City/State/[place] [address] COVID-19 PCR (12/08/2021 5:00 PM EDT) [facility] Method Time Signature SARS-CoV-2 Not Detected Not Detected [facility] RNA PCR [facility] Comment: This result should [...] using the Simplexa COVID-19 Direct Assay by [employer] as authorized by the FDA issued Emergency [...] clinical management guidance information are available at [facility] CDC Coronavirus Disease 2019 (COVID-19) webpage under Information fo r Healthcare Professionals (https://www.cdc.gov/coronavirus/2019-nc ov/hcp/index.html). Additional information about this and ot her EUA tests can be found in provider and patient fact sheets at the following FDA website: https://www.fda.gov/medical-devices/yxwtipetzox-jfpkkcy-6844-ypukb-57-ytbyjdgbq- cgt-hsxynpowyoqbal-pmrffru-devices/wwdbk-miupqwuavhv-emzr SARS-CoV-2 Source NEWSP[employer]ER MANAGER Swab [facility] Specimen (Source) Anatomical Collection Method Collection Time Re ceived Time Location / / Volume Laterality Nasopharyngeal Swab 12/08/2021 5:00 12/08 PM EDT 6:03 PM EDT Comment: Symptoms->Surveillance Resulting Agency Comment Spec In Lab Iker Cuevas MD MICROBIOLOGY - GENERAL ORDER [place] Performing Organization Address City/State/[place] [address] EKG 12 Lead (12/08/2021 4:40 PM EDT) Component Value Ref Range Test Analysis Performed Pathologis t Method Time At Signature Ventricular rate 78 BPM MUSE SYSTEM Atrial Rate 78 BPM MUSE SYSTEM P-R Interval 152 ms MUSE SYSTEM QRS Duration 96 ms MUSE SYSTEM Q-T Interval 396 ms MUSE SYSTEM QTC Calculated 451 ms MUSE SYSTEM (Bezet) Calculated P [place] 44 degrees MUSE SYSTEM Calculated R [place] -31 degrees MUSE SYSTEM Calculated T [place] 124 degrees MUSE SYSTEM INTERPRETATION Normal sinus [...] Cuevas MD ECG ORDERABLES Performing Organization Address City/[facility]/ZIP Code Phon e Number MUSE SYSTEM (ABNORMAL) POCT Glucose (12/08/2021 4:34 PM EDT) P athologist Signature POC Glucose 400 (H) 65 - 199 [facility] mg/dL [facility] Comment: Supplemental ranges: <140 mg/dL before meals <180 mg/dL all other times of the day Specimen Anatomical Collection Method Collection Time Receive d Time (Source) Location / / Volume Laterality Blood 12/08/2021 4:34 PM 2 4:34 EDT PM EDT Iker Cuevas MD POINT OF CARE TEST ORDERABLE S Performing Organization Address City/[facility]/ZIP Code Phon e Number [place] [phone] documented in this encounter [...] Given 11/23 10:30 AM EDT 300 mcg ([employer]) ONCE PRN, Starting on Wed12/10/21 at 1030, [...] 0735 (Given - Provider: Emma Garcia RN)0805 ([facility] Hold - Provider: Admin Adt - Reason: Transfer to a Procedural area)0900 (Not Given - Provider: Emma Garcia RN - Reason: See comment - Comment: given before cath) 0835 (Given - Provider: Emma Garcia RN) 0829 (Given - Provider: Lilliana Esteban, VAMSI) 40 mg, Oral, DAILY, First dose on Wed at 1830, Until Discontinued, DO NOT CRUSH OR OPEN, Routine 1230 ([facility] Unhold - Provider: Admin Adt) [...] (Intra-Procedure), Routine niCARdipine (Cardene) (100 mcg/mL) dilution ([employer]) (CANCELED) 1030 (Given - Provider: Vitaliy Nobles [...] (Effient) tablet (CANCELED) 1013 (Given - Provider: Wellingtno Schaffer) ONCE PRN, Starting on Wed12/10/21 at [...] episode. & nbsp; For persistent hypoglycemia, con biochemistry professor longer-acting treatment for the duration of the [...]
Routine documented in this encounter Care Teams Profiler Relationship Specialty Start Date End Date Lovely Vicente MD PCP - General 04/16/[address] [place] [address] documented as of this encounter"
--- OUTSIDE RECORDS SUMMARY | 2022-03-16 08:14 | XMS_ITS | Encounter Summary ---
:1945 Author Organization [facility] [place] [address] Care Team Providers Name Role Phone Lovely Vicente MD Primary Care Provider Reason for Referral Consultation (Routine) - Closed Specialty Diagnoses / Referred By Contact Referred To Contact Procedures Cardiac Rehabilitation Diagnoses Acute HFrEF (heart failure with reduced ejection fraction) Janneth Padilla, Cardiac Rehab, [address] [place] CARDIOLOGY DEPT. [address] [place] [address] Referral ID Status Reason Start Date Expiration Date Visits V isits Requested Authorized [id number] Closed Consult, 12/12/2021 12/12/2022 36 36 Test & Treat Reason for Visit Auth/Cert Specialty Diagnoses / Procedures Referred By Contact Refer red To Contact Diagnoses NSTEMI Procedures emerg ipi Referral ID Status Reason Start Date Expiration Date Visits Requ ested Visits Authorized [id number] 1 1 Encounter Details Date Type Department Care Team Description 12/08/2021 - Hospital Encounter Intermediate Cardiac Iker Cuevas MD [facility] [place] [address] Non-ST elevation myocardial infarction ( NSTEMI); 12/12/2021 Care Unit Ifeanyi Rene MD [facility] [place] [address] ST elevation myocardial infarction (STEM I), unspecified artery; [facility] Acute HFr EF (heart failure with reduced ejection fraction) [place] [address] Social History Tobacco Use Types Packs/Day Years [...] Don Fatima Patient Age: 76 y.o. Language: Azeri Race: White Ethnicity: Not nor Admit date: [...] Peter PA-C Kelly LaFlamme PA-C Cardiovascular Medicine [phone] Discharge Diagnoses (Hospital Problems) and Secondary Diagnoses [...] 3.75 guiding catheter and a 3.5 Fr [facility] [place] 20 Mhz using Manual pullback. Imaging was successful. Image quality was good. The ostial LCX showed moderate diffuse atherosclerotic plaque with scattered three quadrant calcification. Measurements were performed after pre-dilation. Post Intervention: The stent was well expanded and apposed. Intravascular Ultrasound was performed in the distal LM using a 7 Fr EBU 3.75 guiding catheter and a 3.5 Fr [facility] [place] 20 Mhz using Manual pullback. Imaging was [...] require modification of this regimen. Consult [facility] [...] vascular congestion and cardiomegaly. ?? TTE from [facility] 12/08/21 ? Prior Cardiac Studies: TTE [...] prior thyroidectomy in [address] [facility] with 1 week progressing breathlessness with [...] 03/2021 with Liz Poole PA-C. ?? At [facility], respiratory distress with hypoxia 86% on [...] mg PO daily in place of lasix. Stone is new for him and he will [...] to be ~$24/mo; affordable per patient. Post [facility] he was started on Eliquis. [...] appointments: During 8am-5pm Wednesday through Wednesday call [phone] to speak with a nurse in the cardiology clinic All other times call [phone] and ask to speak to the hotel general manager press operator carbon blocks. Return to work: One week Driving: No driving for 48 hours after catheterization. Follow up Appointments: PCP Lovely Vicente MD [phone] to see patient at the end of December for annual check up. Patient to see Dr. Lorenzana at 1120 am at December 19 for a post hospital check up. Health Officer Dr. De Oliveira to see you in [facility]. Left a message for office to set a date and time. Please call [phone] Nobles to see the patient for a same day cath in 2-3 weeks from now. Office to call with a date and time. For questions please call [phone] Home oxygen therapy: N/A Arrangements for VNA/home care: none Future Appointments and Orders Future Orders Complete By Expires Basic Metabolic Panel (non-fasting) [LAB15 Custom] 12/19/2021 (Approximate) 12/12/2022 Process Instructions: INCLUDES: Calcium, BUN, Creat, GFR, Glucose, Lytes Scheduling Instructions: Comments: Questions: Referral to Cardiac Rehab [[id number] Custom] As directed Process Instructions: If no [...] appointments: During 8am-5pm Wednesday through Wednesday call [phone] to speak with a nurse in the cardiology clinic All other times call [phone] and ask to speak to the hotel general manager press operator carbon blocks. Return to work: One week Driving: No driving for 48 hours after catheterization. Follow up Appointments: PCP Lovely Vicente MD [phone] to see patient at the end of December for annual check up. Patient to see Dr. Lorenzana at 1120 am at December 19 for a post hospital check up. Health Officer Dr. De Oliveira to see you in [facility]. Left a message for office to set a date and time. Please call [phone] Nobles to see the patient for a same day cath in 2-3 weeks from now. Office to call with a date and time. For questions please call [phone] Home oxygen therapy: N/A Arrangements for VNA/home [...] Progress Note Patient Name: Don Fatima Service: ICER MACHINE / PA Responsible Attending: Ifeanyi Truong [...] Lasix 80mg IV x1 in director of cath lab. Tolerated procedure well. Home today [...] TROPONINT 1.13* 0.92* 0.89* Pertinent Radiographic/Diagnostic Results: R/[facility] 12/10/21 Hemodynamics: Right Heart Pressures [...] pulmonary vascular congestion and cardiomegaly. TTE from [facility] 12/08/21 Prior Cardiac Studies: TTE 07/28/2019 [...] with MD Janneth Neville PA 12/12/2021 Pager [phone] Associated attestation - Ifeanyi Truong MD - [...] for each meal) Desirae Jett APRN [facility] Endocrinology Diabetes Management Pager [phone] minutes of this 35 minute visit [...] Progress Note Patient Name: Don Fatima Service: ICER MACHINE / PA Responsible Attending: Iker Cuevas [...] Lasix 80mg IV x1 in director of cath lab. Tolerated procedure well. Review of [...] TROPONINT 1.13* 0.92* 0.89* Pertinent Radiographic/Diagnostic Results: R/[facility] 12/10/21 Hemodynamics: Right Heart Pressures [...] pulmonary vascular congestion and cardiomegaly. TTE from [facility] 12/08/21 Prior Cardiac Studies: TTE 07/28/2019 [...] and answered his questions. Iker Cuevas MD [facility] Total time spent on review of records prior to visit, face to face time with patient during visit, documentation, and coordination of care with other clinicians: 25 minutes. . Iker Cuevas MD - 12/10/2021 12:30 PM EDT Images from the original note were not included. Inpatient Cardiology Progress Note Patient Name: Don Fatima Service: ICER MACHINE / PA Responsible Attending: Iker Cuevas [...] Lasix 80mg IV x1 in director of cath lab. Tolerated procedure well. Review of [...] ??? heparin (porcine) infusion 1,600 Units/hr (12/09/21 4377) PRN Meds:ipratropium-albuteroL, senna-docusate, bisacodyL, sodium chloride 0.9 [...] TROPONINT 1.13* 0.92* 0.89* Pertinent Radiographic/Diagnostic Results: /[facility] 12/10/21 Hemodynamics: Right Heart Pressures [...] pulmonary vascular congestion and cardiomegaly. TTE from [facility] 12/08/21 Prior Cardiac Studies: TTE 07/28/2019 [...] Discussed with MD Migdalia Peter PA-C Pager #[phone] 12/10/2021 Cardiology Attending Note I have seen [...] updated and given pictures. Iker Cuevas MD [facility] Total time spent on review of records prior to visit, face to face time with patient during visit, documentation, and coordination of care with other clinicians: 35 minutes. Iker Cuevas MD - 12/09/2021 7:28 AM EDT Images from the original note were not included. Inpatient Cardiology Progress Note Patient Name: Don Fatima Service: ICER MACHINE / PA Responsible Attending: Iker Cuevas [...] ??? heparin (porcine) infusion 1,600 Units/hr (12/09/21 8387) PRN Meds:ipratropium-albuteroL, sodium chloride 0.9 % (flush), [...] pulmonary vascular congestion and cardiomegaly. TTE from [facility] 12/08/21 Prior Cardiac Studies: TTE 07/28/2019 [...] Discussed with MD Migdalia Peter PA-C Pager #[phone] 12/09/2021 Cardiology Attending Note I have seen and examined the patient. I agree with the findings above. Developed CHF early this am despite getting more iv lasix last evening. Feeling better now. INR > 2. Lungs still wet at base. Echo at [facility] showed EF 35% with mild mod MR slightly lower than last value here. -vit K 2.5 orally to facilitate correction of INR- this will take 12-24 hours to take effect -furosemide 80 mg iv now -postpone right and left heart cath until tomorrow given INR and ADHF -increase statin to achieve LDL < 70 -CPAP tonight Iker Cuevas MD [facility] Total time spent on review of [...] prior thyroidectomy in [address] [facility] with 1 week progressing breathlessness with [...] visit 03/2021 with Liz Poole PA-C. At [facility], respiratory distress with hypoxia 86% on [...] at [facility] OR ??? PRO AMPUTATION FOOT, TRANSMETATARSAL Right 08/09/2017 AMPUTATION, TRANSMETATARSAL (WRVU 12.71) performed by Yonathan Smith MD at [facility] OR ??? PRO CABG, ARTERIAL, SINGLE N/A 07/07/2017 @CABG, USING ARTERIAL GRAFT;SINGLE ARTERIAL GRAFT (WRVU 33.75) performed by Yuan Retana MD at [facility] OR ??? PRO CABG, ARTERY-VEIN, TWO N/A 07/07/2017 @CABG, TWO VENOUS GRAFTS & ARTERIAL GRAFT (WRVU 7.93) performed by Yuan Retana MD at [facility] OR ??? PRO COLONOSCOPY, REMV LESN, SNARE 01/16/2014 COLONOSCOPY, POLYPECTOMY, REMOVAL LESION BY SNARE performed by Nohemi Jaimes MD at [facility] ENDOSCOPY ??? PRO DRESSING CHANGE UNDER ANESTHESIA Right 08/11/2017 (MSURG) DRESSING CHANGE (FOR OTHER THAN IVAN) UNDER ANES. (WRVU 0.86) performed by Lamar Smith MD at [facility] OR ??? PRO ENDOSCOPY W/VIDEO-ASST VEIN HARVEST, CABG Right 07/07/2017 ENDOSCOPIC HARVEST VEIN(S) FOR CABG (WRVU 0.31) performed by Yuan Retana MD at [facility] OR ??? PRO THYROIDECTOMY 03/28/2013 THYROIDECTOMY, TOTAL OR COMPLETE performed by Manny Mcknight MD at [facility] MAIN OR Significant Family History: Family History [...] (H) 65 - 199 mg/dL Labs at [facility] 12/08/2021-troponin I 8004 (UN L <60), [...] Monitor for ADRs. Trend troponins. Admission EKG. [facility] 12/09; consented. TTE. Telemetry monitoring, [...] code #Diet-carb control; n.p.o. after midnight for [facility] #DVT prophy- heparin infusion #GI prophy- PPI Discussed with MD Morgan Peter PA-C APP2 pager [phone] 12/08/2021 Cardiology Attending Note I have seen [...] 1 due to graft or [place] coronary stenosis vs acute injury from CHF. 3. PAF: currrently in NSR. Have replaced warfarin with heparin 4. PAD: stable 5. DM: stable 6. CKD: will monitor and minimize contrast. Pt very appreciative of Dr. Yuan Retana's care in 2018. Will let him know patient is here. Iker Cuevas MD [facility] documented in this encounter Miscellaneous Notes [...] Type: *No Product type* / Secondary Insurance: [employer] [place] Prescription Coverage: Yes This plan was formulated [...] cath without complications. Migdalia Parker PA-C Pager #[phone] 12/10/2021 Initial Assessments - Nick Georges RN [...] COVID test: Lab Results Component Value Date [id number] Not Detected 12/08/2021 Past medical History: Past [...] spouse would be surrogate decision maker per [place] surrogate decision making law. (Only good for 180 days) Any patient receiving care at [facility] must abide by [place] law. The hierarchy for surrogate decision making [...] (i) The agent with financial power of opener tender or a conservator appointed in accordance with [...] - standard, cane - straight Home Address: [address] [place] [address] [place] [address] Social & Family Supports: All names listed below confirmed with patient as current and correct Extended Emergency Contact Information Primary Emergency Contact: Kisha Fatima Address: [address] [place] [address] [place] [address] [facility] Mobile Relation: Spouse Secondary Emergency Contact: Elba Swenson Address: [address] Mobile Relation: Child Current Care Provided [...] / Secondary Insurance: [employer] [place] Prescription Coverage: Yes Preferred Pharmacy: [facility] [address] [address] - [place], [place] - [address] [place] [id number] [place] Status: Patient is a : unable to assess Primary Care Provider: Lovely Vicente MD [phone] Patient/Caregiver Goals of Treatment: Get out of here Potential Needs for Transition of Care: none Agency Referrals: none patient has used [facility] in the past Transportation: no concerns Transportation Anticipated: family or friend will provide Concerns to be Addressed: patient refuses services, discharge planning Assessment: Patient is admitted to [facility] Service pager [phone] for 76 y.o.??male??with h/o??CAD s/p 3vCABG (THOMPSON-LAD, [...] status on current unit. Nick Georges RN power press tender, Office of Care Management Pager: [phone] Brief Op Note - Vitaliy Nobles MD - 12/10/2021 8:31 AM EDT Images from the original note were not included. Former[facility] 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 Diabetes History: Don Fatima has had diabetes for 10 years. He has been on insulin for the last several years andis managed by his PCP. Lives in [place], [place] with his . 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 Monitoring - continue BG tid ac & hs Diet - low fat/low carb diet Exercise - weight-bearing exercise 30 min/day, as tolerated Thank you for allowing us to provide care for your patient Desirae Johnie QUINONES Endocrinology Pager [phone] 70 minutes of this 80 minute visit [...] to remain on Med/Surg floor, please page [phone] for any further questions or concerns. LANDON [...] for further details. STEPHANIE Rebolledo 12/08/2021 Pager [phone] documented in this encounter Plan of Treatment Upcoming Encounters Date Type Specialty Care Team Description 03/26/2022 Office Visit Cardiology Vitaliy Nobles MD [facility] [address] [place], [place] [address] (Wo rk) 05/28/2022 Appointment Cardiology Zulma Dolan MD [facility] [place], [place] [address] (Wo rk) 05/28/2022 Laboratory Appointment Lab 05/28/2022 Office Visit Cardiology Zulma Dolan MD [facility] [address] Liz Poole PA [facility] [place] [address] 06/10/2022 Office Visit Dermatology Laura Scherer MD [facility] [address]MAT OLOG[address] [place], [place] [address] (Wo rk) Scheduled Referrals Name [...] POC Glucose 215 (H) 65 - 199 [facility] mg/dL [facility] Comment: Supplemental ranges: <140 mg/dL before meals <180 mg/dL all other times of the day Specimen Anatomical Collection Method Collection Time Receive d Time (Source) Location / / Volume Laterality Blood 12/12/2021 7:42 AM 7:42 EDT AM EDT Ifeanyi Truong MD POINT OF CARE TEST ORDERABLE S Performing Organization Address City/State/[place] [address] (ABNORMAL) Differential, Automated (12/12/2021 4:51 AM EDT) athologist Signature Neutrophils % 75.4 % [facility] Neutr Abs (ANC) 5.95 1.70 - [facility] 6.10 [facility] x10(3)/[facility] LABORATORY Lymphocytes % 12.2 % [facility] Lymphocytes Abs 1.0 0.9 - 3.2 [facility] x10(3)/[facility] LABORATORY Monocytes % 9.5 % [facility] Monocyte Abs 0.8 0.3 - 0.9 [facility] x10(3)/[facility] LABORATORY Eosinophils % 1.8 % [facility] Eosinophils Abs 0.1 0.0 - 0.4 [facility] x10(3)/[facility] LABORATORY Basophils % 0.5 % [facility] Basophils Abs 0.0 0.0 - 0.1 [facility] x10(3)/[facility] LABORATORY Immature Gran % 0.60 % [facility] [...] Abs 0.05 (H) 0.00 - 0.04 x10(3)/[facility] LABORATORY Specimen Anatomical Collection Method Collection Time Receive d Time (Source) Location / / Volume Laterality Blood 12/12/2021 4:51 AM 5:06 EDT AM EDT Resulting Agency Comment Spec In Lab Bijan Sun MD HEMATOLOGY ORDERABLES Performing Organization Address City/State/[place] [address] (ABNORMAL) Hemogram (12/12/2021 4:51 AM EDT) Analysis Performed At Patho logist Time Signature WBC 7.9 4.0 - 9.5 [facility] x10(3)/[facility] LABORATORY RBC 4.19 (L) 4.58 - [facility] 5.54 [facility] x10(6)/[facility] LABORATORY Hemoglobin 12.1 (L) 13.7 - [facility] 16.5 g/dL [facility] Hematocrit 36.7 (L) 40.5 - [facility] 48.5 % [facility] MCV 87.6 82.9 - [facility] 93.1 [facility] LABORATORY MCH 28.9 27.5 - [place] 32.1 pg [facility] MCHC 33.0 32.0 - [place] 35.7 g/dL [facility] Platelets 231 145 - 357 [facility] x10(3)/[facility] LABORATORY RDWSD 47.2 (H) 36.0 - [place] 45.0 [facility] LABORATORY RDWCV 14.6 (H) 11.4 - [facility] SU 13.8 % [facility] MPV 9.5 7.6 - 12.9 [facility] LABORATORY nRBC % Auto 0.0 % [facility] nRBC Abs Auto 0.000 0.000 - [place] [facility] 0.000 [facility] x10(3)/[facility] LABORATORY Specimen Anatomical Collection Method Collection Time Receive d Time (Source) Location / / Volume Laterality Blood 12/12/2021 4:51 AM 2 5:06 EDT AM EDT Resulting Agency Comment Spec In Lab Bijan Sun MD HEMATOLOGY ORDERABLES Performing Organization Address City/State/[place] [address] (ABNORMAL) Prothrombin Time (12/12/2021 [...] Organization Address City/State/[place] [address] (ABNORMAL) BMP w/fasting Glucose (12/12/2021 4:51 AM EDT) athologist Signature Glucose 152 (H) 65 - 99 [facility] Fasting mg/dL [facility] Comment: ?Fasting* Glucose Interpretive [...] of Diabetes Mellitus, Position Statement from the [place] [employer]. ??Diabete s Care, Volume 33, Supplement 1, Jul 2009 BUN 52 (H) 10 - 20 mg/dL [facility] Creatinine 1.72 (H) 0.80 - 1.50 mg/dL [facility] [...] Organization Address City/State/[place] [address] Magnesium (12/12/2021 4:51 AM EDT) P athologist Signature Magnesium 1.02 0.69 - 1.07 [facility] mmol/L [facility] Specimen Anatomical Collection Method Collection Time Receive d Time (Source) Location / / Volume Laterality Blood 12/12/2021 4:51 AM 2 5:06 EDT AM EDT Resulting Agency Comment Spec In Lab Iker Cuevas MD CHEMISTRY ORDERABLES Performing Organization Address City/State/ZIP Code Phon e Number [address] POCT Glucose (12/12/2021 3:43 AM EDT) P athologist Signature POC Glucose 138 65 - 199 [facility] mg/dL [facility] Comment: Supplemental ranges: <140 mg/dL before meals <180 mg/dL all other times of the day Specimen Anatomical Collection Method Collection Time Receive d Time (Source) Location / / Volume Laterality Blood 12/12/2021 3:43 AM 2 3:43 EDT AM EDT Iker Cuevas MD POINT OF CARE TEST ORDERABLE S Performing Organization Address City/State/[place] [address] POCT Glucose (12/11/2021 11:44 PM EDT) P athologist Signature POC Glucose 124 65 - 199 [facility] mg/dL [facility] Comment: Supplemental ranges: <140 mg/dL before meals <180 mg/dL all other times of the day Specimen Anatomical Collection Method Collection Time Receive d Time (Source) Location / / Volume Laterality Blood 12/11/2021 11:44 12/11/2021 PM EDT 11:44 PM EDT Iker uCevas MD POINT OF CARE TEST ORDERABLE S Performing Organization Address City/State/[place] [address] (ABNORMAL) POCT Glucose (12/11/2021 8:12 PM EDT) athologist Signature POC Glucose 200 (H) 65 - 199 [facility] mg/dL [facility] Comment: Supplemental ranges: <140 mg/dL before meals <180 mg/dL all other times of the day Specimen Anatomical Collection Method Collection Time Receive d Time (Source) Location / / Volume Laterality Blood 12/11/2021 8:12 PM 2 8:12 EDT PM EDT Iker Cuevas MD POINT OF CARE TEST ORDERABLE S Performing Organization Address City/State/[place] [address] (ABNORMAL) POCT Glucose (12/11/2021 6:50 PM EDT) P athologist Signature POC Glucose 245 (H) 65 - 199 [place] mg/dL [facility] Comment: Supplemental ranges: <140 mg/dL before meals <180 mg/dL all other times of the day Specimen Anatomical Collection Method Collection Time Receive d Time (Source) Location / / Volume Laterality Blood 12/11/2021 6:50 PM 2 6:50 EDT PM EDT Iker Cuevas MD POINT OF CARE TEST ORDERABLE S Performing Organization Address City/[facility]/[place] [address] (ABNORMAL) POCT Glucose (12/11/2021 4:00 PM EDT) athologist Signature POC Glucose 383 (H) 65 - 199 [facility] mg/dL [facility] Comment: Supplemental ranges: <140 mg/dL before meals <180 mg/dL all other times of the day Specimen Anatomical Collection Method Collection Time Receive d Time (Source) Location / / Volume Laterality Blood 12/11/2021 4:00 PM 2 4:00 EDT PM EDT Iker Cuevas MD POINT OF CARE TEST ORDERABLE S Performing Organization Address City/[facility]/[place] [address] (ABNORMAL) POCT Glucose (12/11/2021 12:01 PM EDT) P athologist Signature POC Glucose 342 (H) 65 - 199 [facility] mg/dL [facility] Comment: Supplemental ranges: <140 mg/dL before meals <180 mg/dL all other times of the day Specimen Anatomical Collection Method Collection Time Receive d Time (Source) Location / / Volume Laterality Blood 12/11/2021 12:01 12/11/2021 PM EDT 12:01 PM EDT Iker Cuevas MD POINT OF CARE TEST ORDERABLE S Performing Organization Address City/[facility]/[place] [address] COVID-19 PCR (12/11/2021 10:13 AM EDT) [facility] gist Method Time Signature SARS-CoV-2 Not Detected Not Detected [facility] Comment: This result should be [...] diagnosis of COVID-19 is performed using the Diaferon RONNA S-CoV-2 Assay as authorized by the FDA Emergency Use Authorization (EUA). This EUA assay is intended for In-vitro Diagnostic (IVD) use with respiratory sp ecimens such as nasopharyngeal swabs collected from individuals during the ac elim ira phase of infection. This assay is performed based on the instructions for use provided by [facility] and additional guidance provided by CDC and FDA. Testing is performed in the Clinical Genomics and Advanced Technolog y Laboratory within the Department of Pathology and Laboratory Medicine at [facility], certified under the Clinical Laboratory [...] required or requested by public health a arhorist. [facility], positive specimens may be sent for [...] clinical management guidance information are available at [facility] Coronavirus Disease 2019 (COVID-19) webpage under Information fo r Healthcare Professionals (https://www.cdc.gov/coronavirus/2019-nc ov/hcp/index.html) Additional information about this and ot her EUA tests can be found in provider and patient fact sheets at the following FDA website: https://www.fda.gov/medical-devices/fdveslxvory-misapsw-7798-lqdsp-09-zjmxwlkdz- cbq-bhpooemfvovbgu-clvrdfm-devices/iutdq-armxvdsinoe-ghjx SARS-Cov-2 RNA Source ICER MACHINE Swab [facility] Specimen (Source) Anatomical Collection Method Collection Time Re ceived Time Location / / Volume Laterality Nasopharyngeal Swab 12/11/2021 10:13 0503/2022 AM EDT 11:16 AM EDT Comment: Symptoms->Surveillance Resulting Agency Comment Spec In Lab Iker Cuevas MD MICROBIOLOGY - GENERAL ORDER [place] Performing Organization Address City/[facility]/ZIP Code Phon e Number [address] POCT Glucose (12/11/2021 7:34 AM EDT) athologist Signature POC Glucose 198 65 - 199 [facility]/dL [facility] Comment: Supplemental ranges: <140 mg/dL before meals <180 mg/dL all other times of the day Specimen Anatomical Collection Method Collection Time Receive d Time (Source) Location / / Volume Laterality Blood 12/11/2021 7:34 AM 7:34 EDT AM EDT Iker Cuevas MD POINT OF CARE TEST ORDERABLE S Performing Organization Address City/State/[place] [address] (ABNORMAL) POCT Glucose (12/11/2021 5:07 AM EDT) athologist Signature POC Glucose 208 (H) 65 - 199 [facility] mg/dL [facility] Comment: Supplemental ranges: <140 mg/dL before meals <180 mg/dL all other times of the day Specimen Anatomical Collection Method Collection Time Receive d Time (Source) Location / / Volume Laterality Blood 12/11/2021 5:07 AM 2 5:07 EDT AM EDT Iker Cuevas MD POINT OF CARE TEST ORDERABLE S Performing Organization Address City/State/[place] [address] (ABNORMAL) Differential, Automated (12/11/2021 4:28 AM EDT) [facility] Method Time Signature Neutrophils % 79.6 % [facility] LABORATORY Neutr Abs (ANC) 7.01 (H) 1.70 - [facility] 6.10 [facility] x10(3)/[facility] L LABORATORY Lymphocytes % 9.1 % [facility]OR[facility]ORY Lymphocytes Abs 0.8 (L) 0.9 - 3.2 [facility] x10(3)/[facility] LABORATORY Monocytes % 9.2 % [facility] Monocyte Abs 0.8 0.3 - 0.9 [facility] x10(3)/[facility] LABORATORY Eosinophils % 1.3 % [facility]ORY Eosinophils Abs 0.1 0.0 - 0.4 [facility] x10(3)/[facility] LABORATORY Basophils % 0.5 % [facility] LAB[facility]ORY Basophils Abs 0.0 0.0 - 0.1 [facility] x10(3)/[facility] LABORATORY Immature Gran % 0.30 [...] 0.03 0.00 - 0.04 x10(3)/[facility] LABORATORY Specimen Anatomical Collection Method Collection Time Receive d Time (Source) Location / / Volume Laterality Blood 12/11/2021 4:28 AM 2 4:37 EDT AM EDT Resulting Agency Comment Spec In Lab Bijan Sun MD HEMATOLOGY ORDERABLES Performing Organization Address City/State/[place] [address] (ABNORMAL) Hemogram (12/11/2021 4:28 AM EDT) Analysis Performed At Patho logist Time Signature WBC 8.8 4.0 - 9.5 [facility] x[facility](3[facility] LABORATORY RBC 4.15 (L) 4.58 - [facility] 5.54 [facility] x10(6)/[facility] LABORATORY Hemoglobin 11.9 (L) 13.7 - [facility] 16.5 g/dL [facility]ORY Hematocrit 36.9 (L) 40.5 - [facility] 48.5 % [facility]ATORY MCV 88.9 82.9 - [facility] 93.1 [facility] LABORATORY MCH 28.7 27.5 - [facility] 32.1 pg [facility]ATORY MCHC 32.2 32.0 - [facility] 35.7 g/dL [facility] Platelets 211 145 - 357 [facility] x10(3)/[facility] LABORATORY RDWSD 48.3 (H) 36.0 - [facility] 45.0 [facility] LABORATORY RDWCV 14.8 (H) 11.4 - [facility] 13.8 % [facility]ATORY MPV 9.6 7.6 - 12.9 [facility] LABORATORY nRBC % Auto 0.0 % [facility] LABORATORY nRBC Abs Auto 0.000 0.000 - [facility] SU 0.000 [facility] x10(3)/[facility] LABORATORY Specimen Anatomical Collection Method Collection Time Receive d Time (Source) Location / / Volume Laterality Blood 12/11/2021 4:28 AM 4:37 EDT AM EDT Resulting Agency Comment Spec In Lab Bijan Sun MD HEMATOLOGY ORDERABLES Performing Organization Address City/State/[place] [address] (ABNORMAL) Prothrombin Time (12/11/2021 4:28 AM EDT) P athologist Signature PT 17.7 (H) 9.4 - 12.5 [facility] LABORATORY INR 1.6 [facility] LABORATORY [...] Organization Address City/State/[place] [address] (ABNORMAL) BMP w/fasting Glucose (12/11/2021 4:28 AM EDT) athologist Signature Glucose 207 (H) 65 - 99 [facility] Fasting mg/dL [facility] Comment: ?Fasting* Glucose Interpretive [...] of Diabetes Mellitus, Position Statement from the [place] [employer]. ??Diabete s Care, Volume 33, Supplement 1, Jul 2009 BUN 49 (H) 10 - 20 mg/dL [facility] LABORATORY Creatinine 1.43 0.80 - 1.50 mg/dL [facility] Sodium 142 135 - [...] Organization Address City/State/[place] [address] Magnesium (12/11/2021 4:28 AM EDT) P athologist Signature Magnesium 1.04 0.69 - 1.07 [facility] mmol/L [facility] LABORATORY Specimen Anatomical Collection Method Collection Time Receive d Time (Source) Location / / Volume Laterality Blood 12/11/2021 4:28 AM 2 4:37 EDT AM EDT Resulting Agency Comment Spec In Lab Iker Cuevas MD CHEMISTRY ORDERABLES Performing Organization Address City/State/[place] [address] POCT Glucose (12/11/2021 3:58 AM EDT) athologist Signature POC Glucose 189 65 - 199 [facility] mg/dL [facility] Comment: Supplemental ranges: <140 mg/dL before meals <180 mg/dL all other times of the day Specimen Anatomical Collection Method Collection Time Receive d Time (Source) Location / / Volume Laterality Blood 12/11/2021 3:58 AM 2 3:58 EDT AM EDT Iker Cuevas MD POINT OF CARE TEST ORDERABLE S Performing Organization Address City/State/[place] [address] (ABNORMAL) POCT Glucose (12/10/2021 11:45 PM EDT) athologist Signature POC Glucose 205 (H) 65 - 199 [facility] SU mg/dL [facility] Comment: Supplemental ranges: <140 mg/dL before meals <180 mg/dL all other times of the day Specimen Anatomical Collection Method Collection Time Receive d Time (Source) Location / / Volume Laterality Blood 12/10/2021 11:45 12/10/2021 PM EDT 11:45 PM EDT Iker Cuevas MD POINT OF CARE TEST ORDERABLE S Performing Organization Address City/State/[place] [address] (ABNORMAL) POCT Glucose (12/10/2021 7:54 PM EDT) athologist Signature POC Glucose 225 (H) 65 - 199 [facility] mg/dL [facility] Comment: Supplemental ranges: <140 mg/dL before meals <180 mg/dL all other times of the day Specimen Anatomical Collection Method Collection Time Receive d Time (Source) Location / / Volume Laterality Blood 12/10/2021 7:54 PM 2 7:54 EDT PM EDT Iker Cuevas MD POINT OF CARE TEST ORDERABLE S Performing Organization Address City/[facility]/[place] [address] Potassium (12/10/2021 7:46 PM EDT) athologist Signature Potassium 4.2 3.5 - 5.0 [facility] mmol/L [facility] Comment: Please note: ??Patients [...] Cuevas MD CHEMISTRY ORDERABLES Performing Organization Address City/[facility]/[place] [address] (ABNORMAL) Basic Metabolic Panel (non-fasting) (12/10/2021 6:12 PM EDT) athologist Signature Glucose Lvl 246 (H) 65 - 199 [facility] mg/dL [facility] Comment: Diabetes: >=200 mg/dL plus symp toms BUN 50 (H) 10 - 20 mg/dL [facility] Creatinine 1.39 0.80 - 1.50 mg/dL [facility] OCK [facility] LAB[facility] Sodium 138 135 - [...] Organization Address City/State/[place] [address] POCT Glucose (12/10/2021 4:59 PM EDT) P athologist Signature POC Glucose 158 65 - 199 [facility] mg/dL [facility] Comment: Supplemental ranges: <140 mg/dL before meals <180 mg/dL all other times of the day Specimen Anatomical Collection Method Collection Time Receive d Time (Source) Location / / Volume Laterality Blood 12/10/2021 4:59 PM 2 4:59 EDT PM EDT Iker Cuevas MD POINT OF CARE TEST ORDERABLE S Performing Organization Address City/State/ZIP Code Phon e Number [address] (ABNORMAL) POCT Glucose (12/10/2021 12:43 PM EDT) P athologist Signature POC Glucose 241 (H) 65 - 199 [facility] mg/dL [facility] Comment: Supplemental ranges: <140 mg/dL before meals <180 mg/dL all other times of the day Specimen Anatomical Collection Method Collection Time Receive d Time (Source) Location / / Volume Laterality Blood 12/10/2021 12:43 12/10/2021 PM EDT 12:43 PM EDT Iker Cuevas MD POINT OF CARE TEST ORDERABLE S Performing Organization Address [facility]/[place] [address] EKG 12 Lead (12/10/2021 11:17 AM EDT) Component Value Ref Range Test Analysis Performed Pathologis t Method Time At Signature Ventricular rate 62 BPM MUSE SYSTEM Atrial Rate 62 BPM MUSE SYSTEM P-R Interval 142 ms MUSE SYSTEM QRS Duration 100 ms MUSE SYSTEM Q-T Interval 434 ms MUSE SYSTEM QTC Calculated 440 ms MUSE SYSTEM (Bezet) Calculated P [place] 34 degrees MUSE SYSTEM Calculated R [place] -39 degrees MUSE SYSTEM Calculated T [place] 92 degrees MUSE SYSTEM INTERPRETATION Normal sinus [...] Cuevas MD ECG ORDERABLES Performing Organization Address City/[facility]/ZIP Code Phon e Number MUSE SYSTEM CARDIAC CATHETERIZATION (12/10/2021 10:54 AM EDT) Specimen (Source) Anatomical Location Collection Method / Collectio n Time Received Time / Laterality Volume Narrative CARDIOMAC SYSTEM - 12/10/2021 12:04 PM E DT ?[facility] ? Cardiac Cathete rization/Intervention Report ? Patient Name: Don Fatima. ? Procedure Date: 12/10/2021 ? A #: [id number] ? Primary Physician: Vitaliy Nobles ? Case #: [id number] ? File Name: [id number] ? Catheterization Order Number: [id number] ? [facility] ? Final Report [place], [place] ? Patient Name: ? Don E. Stewa rt ? ID#: ?[id number] ? : ?1945 ? Procedure Date: ? December 10, 2021 ? Case #: ? [id number] ? Room: ? 1 ? Case Physician: [...] ?designated as ASA Class III. [facility] e [facility] clinical frailty scale is 5: Mildly [...] Urgent. The indication for ?the director of cath lab visit is ACS great er [...] ?3.75 guiding catheter and a 3.5 Fr [facility] 20 Mhz using Manual ?pullback. ??Imaging was [...] ?3.75 guiding catheter and a 3.5 Fr [facility] 20 Mhz using Manual ?pullback. ??Imaging was [...] ?modification of this regimen. C onsult [facility] Interventional Cardiology for ?questions. ?The 1 year [...] Procedure Note Vitaliy Nobles MD - 01/14/2022 [facility] Cardiac Catheterization/Intervention Re port Patient Name: Kushal Don MccollumMadiha Procedure Date: 12/10/2021 A #: [id number] Primary Physician: Vitaliy Nobles Case #: [id number] File Name: [id number] Catheterization Order Number: [id number] [facility] Final Report [place], [place] Patient Name: Don Fatima ID#: [...] Urgent. The indication for the director of cath lab visit is ACS greater than [...] and a 3.5 Fr [facility] [place] 20 Mhz using Manual pullback. Imaging was [...] and a 3.5 Fr [facility] [place] 20 Mhz using Manual pullback. Imaging was [...] POC Glucose 262 (H) 65 - 199 [facility] mg/dL [facility] Comment: Supplemental ranges: <140 mg/dL before meals <180 mg/dL all other times of the day Specimen Anatomical Collection Method Collection Time Receive d Time (Source) Location / / Volume Laterality Blood 12/10/2021 10:30 12/10/2021 AM EDT 10:30 AM EDT Iker Cuevas MD POINT OF CARE TEST ORDERABLE S Performing Organization Address City/State/[place] [address] (ABNORMAL) POCT Glucose (12/10/2021 9:48 AM EDT) athologist Signature POC Glucose 279 (H) 65 - 199 [facility] mg/dL [facility] Comment: Supplemental ranges: <140 mg/dL before meals <180 mg/dL all other times of the day Specimen Anatomical Collection Method Collection Time Receive d Time (Source) Location / / Volume Laterality Blood 12/10/2021 9:48 AM 2 9:48 EDT AM EDT Iker Cuevas MD POINT OF CARE TEST ORDERABLE S Performing Organization Address City/State/[place] [address] (ABNORMAL) POCT Glucose (12/10/2021 9:07 AM EDT) P athologist Signature POC Glucose 268 (H) 65 - 199 [facility] mg/dL [facility] Comment: Supplemental ranges: <140 mg/dL before meals <180 mg/dL all other times of the day Specimen Anatomical Collection Method Collection Time Receive d Time (Source) Location / / Volume Laterality Blood 12/10/2021 9:07 AM 2 9:07 EDT AM EDT Iker Cuevas MD POINT OF CARE TEST ORDERABLE S Performing Organization Address City/State/[place] [address] (ABNORMAL) Point of Care Blood Gas Historical (12/10/2021 9:04 AM EDT) Patholo gist Method Time Signature POC pH 7.40 7.35 - [facility] 7.45 [facility] LABORATORY POC PCO2 40 35 - 45 [facility] mmHg [facility] LABORATORY POC PO2 63 (L) 85 - 104 [facility] LABORATORY POC Base Excess 0.0 -3.0 - 3.0 [facility] K mmol/L [facility] LABORATORY POC HCO3 24.8 20.0 - [facility] 26.0 [facility] mmol/L HOSPITAL LABORATORY POC Sodium 143 135 - 145 [facility] mmol/L [facility] POC Potassium 3.7 3.5 - 5.0 [facility] mmol/L [facility] POC Ionized Ca 1.07 (L) 1.15 - [facility] 1.33 [facility] mmol/L HOSPITAL LABORATORY POC Hematocrit 30.0 (L) 40.0 - [facility] 51.0 % [facility] POC Calc Hgb 10.2 (L) 13.7 - [facility] 17.5 g/dL [facility] LABOR[facility]ORY Comment: The calculation of hemoglobin f rom hematocrit assumes a normal MCHC. POC Bgas Loc CC LAB [facility] LABORATORY Specimen Anatomical Collection Method Collection Time Receive d Time (Source) Location / / Volume Laterality Blood 12/10/2021 9:04 AM 2 EDT 12:00 PM EDT Ifeanyi Truong MD CHEMISTRY ORDERABLES Performing Organization Address City/[facility]/[place] [address] (ABNORMAL) POCT Glucose (12/10/2021 7:19 AM EDT) athologist Signature POC Glucose 274 (H) 65 - 199 [facility] mg/dL [facility] Comment: Supplemental ranges: <140 mg/dL before meals <180 mg/dL all other times of the day Specimen Anatomical Collection Method Collection Time Receive d Time (Source) Location / / Volume Laterality Blood 12/10/2021 7:19 AM 2 7:19 EDT AM EDT Iker Cuevas MD POINT OF CARE TEST ORDERABLE S Performing Organization Address City/[facility] [place] [address] Heparin (unfractionated) Level (12/10/2021 4:25 AM EDT) athologist Signature Heparin UFH 0.69 IU/mL [facility] LABORATORY Comment: Heparin (anti-Xa) levels should [...] Organization Address City/State/[place] [address] (ABNORMAL) Differential, Automated (12/10/2021 4:25 AM EDT) [facility] Method Time Signature Neutrophils % 79.8 % [facility] LABORATORY Neutr Abs (ANC) 7.47 (H) 1.70 - [facility] 6.10 [facility] x10(3)/[facility] LABORATORY Lymphocytes % 10.6 % [facility] LABORATORY Lymphocytes Abs 1.0 0.9 - 3.2 [facility] x10(3)/[facility] LABORATORY Monocytes % 8.4 % [facility] LABORATORY Monocyte Abs 0.8 0.3 - 0.9 [facility] x10(3)/[facility] LABORATORY Eosinophils % 0.6 % [facility] LABORATORY Eosinophils Abs 0.1 0.0 - 0.4 [facility] x10(3)/[facility] LABORATORY Basophils % 0.2 % [facility] LABORATORY Basophils Abs 0.0 0.0 - 0.1 [facility] x10(3)/[facility] LABORATORY Immature Gran % 0.40 [...] 0.04 0.00 - 0.04 x10(3)/mcL [facility] LABORATORY Specimen Anatomical Collection Method Collection Time Receive d Time (Source) Location / / Volume Laterality Blood 12/10/2021 4:25 AM 2 4:34 EDT AM EDT Resulting Agency Comment Spec In Lab Morgan BROWN HEMATOLOGY ORDERABLES Performing Organization Address City/State/[place] [address] (ABNORMAL) Hemogram (12/10/2021 4:25 AM EDT) Analysis Performed At Patho logist Time Signature WBC 9.4 4.0 - 9.5 [facility] x10(3)/[facility] LABORATORY RBC 3.81 (L) 4.58 - [facility] 5.54 [facility] x10(6)/[facility] LABORATORY Hemoglobin 11.1 (L) 13.7 - [facility] 16.5 g/dL [facility]ORATORY Hematocrit 34.0 (L) 40.5 - [facility] 48.5 % [facility] LABORATORY MCV 89.2 82.9 - [facility] 93.1 [facility] LABORATORY MCH 29.1 27.5 - [facility] 32.1 pg [facility] LABORATORY MCHC 32.6 32.0 - [facility] 35.7 g/dL [facility] LABORATORY Platelets 183 145 - 357 [facility] x10(3)/[facility] LABORATORY RDWSD 49.9 (H) 36.0 - [facility] 45.0 [facility] LABORATORY RDWCV 15.2 (H) 11.4 - [facility] SU 13.8 % [facility] LABORATORY MPV 9.8 7.6 - 12.9 [facility] LABORATORY nRBC % Auto 0.0 % [facility] LABORATORY nRBC Abs Auto 0.000 0.000 - [facility] 0.000 [facility] x10(3)/[facility] LABORATORY Specimen Anatomical Collection Method Collection Time Receive d Time (Source) Location / / Volume Laterality Blood 12/10/2021 4:25 AM 2 4:34 EDT AM EDT Resulting Agency Comment Spec In Lab Morgan BROWN HEMATOLOGY ORDERABLES Performing Organization Address City/State/[place] [address] (ABNORMAL) Prothrombin Time (12/10/2021 4:25 AM EDT) athologist Signature PT 20.0 (H) 9.4 - 12.5 [facility] LABORATORY INR 1.7 [facility] LABORATORY [...] Organization Address City/State/[place] [address] (ABNORMAL) BMP w/fasting Glucose (12/10/2021 4:25 AM EDT) athologist Signature Glucose 210 (H) 65 - 99 [facility] Fasting mg/dL [facility] LABORATORY Comment: ?Fasting* Glucose Interpretive [...] of Diabetes Mellitus, Position Statement from the [place] [employer]. ??Diabete s Care, Volume 33, Supplement 1, Jul 2009 BUN 54 (H) 10 - 20 mg/dL [facility] LABORATORY Creatinine 1.52 (H) 0.80 - 1.50 mg/dL [facility] [...] Organization Address City/State/[place] [address] Magnesium (12/10/2021 4:25 AM EDT) athologist Signature Magnesium 0.95 0.69 - 1.07 [facility] mmol/L [facility] LABORATORY Specimen Anatomical Collection Method Collection Time Receive d Time (Source) Location / / Volume Laterality Blood 12/10/2021 4:25 AM 2 4:34 EDT AM EDT Resulting Agency Comment Spec In Lab Iker Cuevas MD CHEMISTRY ORDERABLES Performing Organization Address City/State/[place] [address] POCT Glucose (12/10/2021 1:58 AM EDT) athologist Signature POC Glucose 164 65 - 199 [facility] mg/dL [facility] LABOR[facility]ORY Comment: Supplemental ranges: <140 mg/dL before meals <180 mg/dL all other times of the day Specimen Anatomical Collection Method Collection Time Receive d Time (Source) Location / / Volume Laterality Blood 12/10/2021 1:58 AM 2 1:58 EDT AM EDT Iker Cuevas MD POINT OF CARE TEST ORDERABLE S Performing Organization Address City/State/[place] [address] (ABNORMAL) POCT Glucose (12/09/2021 9:02 PM EDT) athologist Signature POC Glucose 313 (H) 65 - 199 [facility] mg/dL [facility] LABOR[facility] Comment: Supplemental ranges: <140 mg/dL before meals <180 mg/dL all other times of the day Specimen Anatomical Collection Method Collection Time Receive d Time (Source) Location / / Volume Laterality Blood 12/09/2021 9:02 PM 2 9:02 EDT PM EDT Iker Cuevas MD POINT OF CARE TEST ORDERABLE S Performing Organization Address City/State/[place] [address] Heparin (unfractionated) Level (12/09/2021 7:30 PM EDT) athologist Signature Heparin UFH 0.48 IU/mL [facility] LABORATORY Comment: Heparin (anti-Xa) levels should [...] Organization Address City/State/[place] [address] (ABNORMAL) Basic Metabolic Panel (non-fasting) (12/09/2021 7:30 PM EDT) P athologist Signature Glucose Lvl 372 (H) 65 - 199 [facility] mg/dL [facility] LABORATORY Comment: Diabetes: >=200 mg/dL plus symp toms BUN 56 (H) 10 - 20 mg/dL [facility] LABORATORY Creatinine 1.75 (H) 0.80 - 1.50 mg/dL [facility] [...] Organization Address City/State/[place] [address] (ABNORMAL) POCT Glucose (12/09/2021 6:34 PM EDT) P athologist Signature POC Glucose 408 (H) 65 - 199 [facility] mg/dL [facility] LABOR[facility]ORY Comment: Supplemental ranges: <140 mg/dL before meals <180 mg/dL all other times of the day Specimen Anatomical Collection Method Collection Time Receive d Time (Source) Location / / Volume Laterality Blood 12/09/2021 6:34 PM 2 6:34 EDT PM EDT Iker Cuevas MD POINT OF CARE TEST ORDERABLE S Performing Organization Address City/State/[place] [address] (ABNORMAL) POCT Glucose (12/09/2021 6:32 PM EDT) athologist Signature POC Glucose 356 (H) 65 - 199 [facility] mg/dL [facility] Comment: Supplemental ranges: <140 mg/dL before meals <180 mg/dL all other times of the day Specimen Anatomical Collection Method Collection Time Receive d Time (Source) Location / / Volume Laterality Blood 12/09/2021 6:32 PM 2 6:32 EDT PM EDT Iker Cuevas MD POINT OF CARE TEST ORDERABLE S Performing Organization Address City/State/[place] [address] (ABNORMAL) POCT Glucose (12/09/2021 4:19 PM EDT) athologist Signature POC Glucose 347 (H) 65 - 199 [facility] mg/dL [facility] Comment: Supplemental ranges: <140 mg/dL before meals <180 mg/dL all other times of the day Specimen Anatomical Collection Method Collection Time Receive d Time (Source) Location / / Volume Laterality Blood 12/09/2021 4:19 PM 2 4:19 EDT PM EDT Iker Cuevas MD POINT OF CARE TEST ORDERABLE S Performing Organization Address City/[facility]/[place] [address] Heparin (unfractionated) Level (12/09/2021 1:29 PM EDT) athologist Signature Heparin UFH 0.42 IU/mL [facility] LABORATORY Comment: Heparin (anti-Xa) levels should [...] Cuevas MD HEMATOLOGY ORDERABLES Performing Organization Address City/[facility]/[place] [address] (ABNORMAL) POCT Glucose (12/09/2021 12:02 PM EDT) P athologist Signature POC Glucose 235 (H) 65 - 199 [facility] mg/dL [facility] Comment: Supplemental ranges: <140 mg/dL before meals <180 mg/dL all other times of the day Specimen Anatomical Collection Method Collection Time Receive d Time (Source) Location / / Volume Laterality Blood 12/09/2021 12:02 12/09/2021 PM EDT 12:02 PM EDT Iker Cuevas MD POINT OF CARE TEST ORDERABLE S Performing Organization Address City/[facility]/[place] [address] (ABNORMAL) POCT Glucose (12/09/2021 9:44 AM EDT) P athologist Signature POC Glucose 214 (H) 65 - 199 [facility] mg/dL [facility] Comment: Supplemental ranges: <140 mg/dL before meals <180 mg/dL all other times of the day Specimen Anatomical Collection Method Collection Time Receive d Time (Source) Location / / Volume Laterality Blood 12/09/2021 9:44 AM 2 9:44 EDT AM EDT Iker Cuevas MD POINT OF CARE TEST ORDERABLE S Performing Organization Address City/[facility]/[place] [address] EKG 12 Lead (12/09/2021 7:57 AM EDT) Component Value Ref Range Test Analysis Performed Pathologis t Method Time At Signature Ventricular rate 101 BPM MUSE SYSTEM Atrial Rate 101 BPM MUSE SYSTEM P-R Interval 150 ms MUSE SYSTEM QRS Duration 112 ms MUSE SYSTEM Q-T Interval 364 ms MUSE SYSTEM QTC Calculated 471 ms MUSE SYSTEM (Bezet) Calculated P [place] 59 degrees MUSE SYSTEM Calculated R [place] -42 degrees MUSE SYSTEM Calculated T [place] 102 degrees MUSE SYSTEM INTERPRETATION Sinus tachycardia Occasional Premature ventricular com plexes MUSE SYSTEM Left axis deviation 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) Abnormal ECG When compared with ECG of 08-DEC-2021 16:40, Premature ventricular complexes are now Present Confirmed by MD Fernandez Danette ([id number]) on 12/10/2021 4:55:06 PM Specimen Anatomical Collection Method Collection Time Receive d Time (Source) Location / / Volume Laterality 12/09/2021 7:57 AM 2 4:55 EDT PM EDT Iker Cuevas MD ECG ORDERABLES Performing Organization Address City/State/ZIP Code Phon e Number MUSE SYSTEM (ABNORMAL) POCT Glucose (12/09/2021 7:28 AM EDT) athologist Signature POC Glucose 263 (H) 65 - 199 [facility] mg/dL [facility] Comment: Supplemental ranges: <140 mg/dL before meals <180 mg/dL all other times of the day Specimen Anatomical Collection Method Collection Time Receive d Time (Source) Location / / Volume Laterality Blood 12/09/2021 7:28 AM 2 7:28 EDT AM EDT Iker Cuevas MD POINT OF CARE TEST ORDERABLE S Performing Organization Address City/State/[place] [address] (ABNORMAL) Hemoglobin A1c (12/09/2021 [...] Avg Gluc See note mg/dL [facility] LABORATORY Comment: Estimated Average Glucose [...] into estimated average glucose values. ??Diabetes Care 2008:31(8):5545-7055. Specimen Anatomical Collection Method Collection Time Receive d Time (Source) Location / / Volume Laterality Blood Venous Draw / 12/09/2021 6:18 AM 12/10/19 22 Unknown EDT 12:24 PM EDT Resulting Agency Comment Spec In Lab Migdalia BROWN CHEMISTRY ORDERABLES Performing Organization Address City/State/ZIP [place] [address] (ABNORMAL) Prothrombin Time (12/09/2021 6:18 AM EDT) athologist Signature PT 26.6 (H) 9.4 - 12.5 [facility] LABORATORY INR 2.3 [facility] LABORATORY [...] Migdalia BROWN HEMATOLOGY ORDERABLES Performing Organization Address City/[facility]/[place] [address] Heparin (unfractionated) Level (12/09/2021 6:18 AM EDT) athologist Signature Heparin UFH 0.24 IU/mL [facility] LABORATORY Comment: Heparin (anti-Xa) levels should [...] Cuevas MD HEMATOLOGY ORDERABLES Performing Organization Address City/[facility]/[place] [address] (ABNORMAL) Differential, Automated (12/09/2021 6:18 AM EDT) [facility] Method Time Signature Neutrophils % 91.5 % [facility] LABORATORY Neutr Abs (ANC) 15.78 (H) 1.70 - [facility] 6.10 [facility] x10(3)/[facility] LABORATORY Lymphocytes % 2.9 % [facility] LABORATORY Lymphocytes Abs 0.5 (L) 0.9 - 3.2 [facility] x10(3)/[facility] LABORATORY Monocytes % 4.9 % [facility] LABORATORY Monocyte Abs 0.8 0.3 - 0.9 [facility] x10(3)/[facility] LABORATORY Eosinophils % 0.0 % [facility] LABORATORY Eosinophils Abs 0.0 0.0 - 0.4 [facility] x10(3)/[facility] LABORATORY Basophils % 0.2 % [facility] LABORATORY Basophils Abs 0.0 0.0 - 0.1 [facility] x10(3)/[facility] LABORATORY Immature Gran % 0.50 [...] Abs 0.09 (H) 0.00 - 0.04 x10(3)/[facility] LABORATORY Specimen Anatomical Collection Method Collection Time Receive d Time (Source) Location / / Volume Laterality Blood 12/09/2021 6:18 AM 6:33 EDT AM EDT Resulting Agency Comment Spec In Lab Morgan BROWN HEMATOLOGY ORDERABLES Performing Organization Address City/State/ZIP Code Phon e Number [place] [id number] (ABNORMAL) Hemogram (12/09/2021 6:18 AM EDT) Analysis Performed At Patho logist Time Signature WBC 17.2 (H) 4.0 - 9.5 [facility] x10(3)/[facility] LABORATORY RBC 4.32 (L) 4.58 - [facility] 5.54 [facility] x10(6)/[facility] LABORATORY Hemoglobin 12.6 (L) 13.7 - [facility] 16.5 g/dL [facility]ORY Hematocrit 38.9 (L) 40.5 - [facility] 48.5 % [facility] MCV 90.0 82.9 - [facility] 93.1 [facility] LABORATORY MCH 29.2 27.5 - [facility] 32.1 pg [facility]AT[facility] MCHC 32.4 32.0 - [facility] 35.7 g/dL [facility] Platelets 193 145 - 357 [facility] x10(3)/[facility] LABORATORY RDWSD 50.4 (H) 36.0 - [facility] 45.0 [facility] LABORATORY RDWCV 15.2 (H) 11.4 - [facility] 13.8 % [facility] LAB[facility]ATORY MPV 9.5 7.6 - 12.9 [facility] LABORATORY nRBC % Auto 0.0 % [facility] LABORATORY nRBC Abs Auto 0.000 0.000 - [facility] 0.000 [facility] x10(3)/[facility] LABORATORY Specimen Anatomical Collection Method Collection Time Receive d Time (Source) Location / / Volume Laterality Blood 12/09/2021 6:18 AM 6:33 EDT AM EDT Resulting Agency Comment Spec In Lab Morgan BROWN HEMATOLOGY ORDERABLES Performing Organization Address City/State/[place] [address] Lipid Panel (Reflex Direct LDL) (12/09/2021 6:18 AM EDT) P athologist Signature Chol, Total 105 mg/dL [facility] LABORATORY Comment: Lower Risk: <200 mg/dL Average Risk: 200-239 mg/dL Higher Risk: >up=836 mg/dL Triglycerides 133 mg/dL [facility] LABORATORY Comment: Average Risk/Lower Risk: <150 mg/dL Borderline High Risk: 150-199 mg/dL High Risk: 200-499 mg/dL Very High Risk: >op=790 mg/dL HDL 42 mg/dL [facility] LABORATORY Comment: Males: ?? Higher Risk: <40 mg/dL Females: ?? Higher Risk: <50 mg/dL LDL Cholesterol 36 mg/dL [facility] LABORATORY Comment: Lowest Risk: <100 mg/dL Lower Risk: 100-129 mg/dL Borderline High Risk: 130-159 mg/dL High Risk: 160-189 mg/dL Very High Risk: >un=462 mg/dL Chol/HDL Ratio 2.5 ratio [facility] LABORATORY Lipid Interpretation See Note [facility] LABORATORY Comment: Lipid management should be guided by a p atient? s ASCVD risk, goals and preferences. ACC/AHA Guidelines recommend high intens ity statin if clinical ASCVD or LDL greater than or equal to 190 mg/dL. http://Pixifly/UAU-QDV-Tvzyksyme Adults aged 40-75 with LDL 70-189 mg/dL should have their 10 year ASCVD risk estimated with the ACC/AHA ASCVD risk es timator http://tools.acc.org/QSCLC-Pyth-Mmhkfahj r/ Statin should be discussed if risk [...] Organization Address City/State/[place] [address] TSH (12/09/2021 6:18 AM EDT) athologist Signature TSH 1.60 0.27 - 4.20 [facility] mcIU/mL [facility] LABORATORY Comment: Reference Interval (mcIU/mL): Females: ??First Trimester: 0.23-3.88 ??Second Trimester: 0.22-3.90 ??Third Trimester: 0.44-4.66 Specimen Anatomical Collection Method Collection Time Receive d Time (Source) Location / / Volume Laterality Blood 12/09/2021 6:18 AM 2 6:33 EDT AM EDT Resulting Agency Comment Spec In Lab Iker Cuevas MD CHEMISTRY ORDERABLES Performing Organization Address City/[facility]/ZIP Code Phon e Number [address] Hepatic Function Panel (12/09/2021 6:18 AM EDT) athologist [facility] Total Protein 7.3 6.1 - 8.0 [facility] g/dL [facility]OR[facility]ORY Albumin 4.2 3.2 - 5.2 [facility] g/dL [facility] AST 25 0 - 39 [facility] unit/L [facility] ALT 15 0 - 55 [facility] unit/L [facility] Alk Phos 75 40 - 130 [facility] unit/L [facility] Total 1.1 0.2 - 1.3 [facility] Bilirubin mg/dL [facility] LABOR[facility] Bili, Direct 0.2 0.0 - 0.3 [facility] mg/dL [facility]OR[facility] Specimen Anatomical Collection Method Collection Time Receive d Time (Source) Location / / Volume Laterality Blood 12/09/2021 6:18 AM 2 6:33 EDT AM EDT Resulting Agency Comment Spec In Lab Iker Cuevas MD CHEMISTRY ORDERABLES Performing Organization Address City/[facility] Phon e Number [address] (ABNORMAL) BMP w/fasting Glucose (12/09/2021 6:18 AM EDT) athologist Signature Glucose 235 (H) 65 - 99 [facility] Fasting mg/dL [facility] Comment: ?Fasting* Glucose Interpretive [...] of Diabetes Mellitus, Position Statement from the [place] [employer]. ??Diabete s Care, Volume 33, [...] Cuevas MD CHEMISTRY ORDERABLES Performing Organization Address City/[facility]/ZIP Code Phon e Number [address] Magnesium (12/09/2021 6:18 AM EDT) athologist Signature Magnesium 0.81 0.69 - 1.07 [facility] mmol/L [facility] LABORATORY Specimen Anatomical Collection Method Collection Time Receive d Time (Source) Location / / Volume Laterality Blood 12/09/2021 6:18 AM 2 6:33 EDT AM EDT Resulting Agency Comment Spec In Lab Iker Cuevas MD CHEMISTRY ORDERABLES Performing Organization Address City/[facility] [place] [address] (ABNORMAL) Troponin (12/09/2021 6:18 AM EDT) athologist Signature Troponin-T 1.13 (H) 0.00 - [facility] 0.00 ng/mL [facility] LABOR[facility]ORY Comment: The 99th percentile [...] additional sample may be indicated. Reference: Third [place] Definition of Myocardial Infarction. Journal of the [place] College [employer] 2012;60:1581-98 Specimen Anatomical Collection Method Collection Time Receive d Time (Source) Location / / Volume Laterality Blood 12/09/2021 6:18 AM 6:33 EDT AM EDT Resulting Agency Comment Spec In Lab Iker Cuevas MD CHEMISTRY ORDERABLES Performing Organization Address City/State/ZIP Code Phon e Number [place] [id number] Drive XR Chest One View [...] who have questions please contact the health college and career counselor that requested your imaging first. ? Electronically signed by: Yoselin White, [facility] ([phone]), at 12/09/2021 5:35 AM Narrative 12/09/2021 5:35 [...] ho have questions please contact the health college and career counselor that requested your imaging first. Electronically signed by: Yoselin White, [facility] ([phone]), at 12/09/2021 5:35 AM Amber Sanches MD IMG DX ORDERABLES (ABNORMAL) BLOOD GAS 2 ARTERIAL (12/09/2021 5:14 AM EDT) Analysis Performed At Patho logis Time Signature pH Art 7.43 7.35 - [facility] 7.45 [facility] LABORATORY pCO2 Art 36 35 - 45 [facility] LABORATORY pO2 Art 67 (L) 85 - 104 [facility] LABORATORY HCO3 Art 23.4 20.0 - [facility] 26.0 [facility] mmol/L [facility] LABORATORY BE Art -0.9 -3.0 - 3.0 [facility] mmol/L [facility] LABOR[facility]ORY Hgb Blood Gas 13.2 (L) 13.7 - [facility] 16.5 g/dL [facility] O2HB Art 91.3 (L) 94.0 - [facility] 97.0 % [facility] LABORATORY COHB Art 0.4 % [...] [facility] LABORATORY Gluc Whole Bld 223 (H) 65 - 199 mg/dL [facility] LABORATORY Comment: Diabetes: >=200 mg/dL plus symp toms. Lactate WB 2.7 (H) 0.5 - 2.2 mmol/L [facility] LABORATORY FIO2 Art 35 % [facility] LABORATORY Flow Art 8.0 LPM [facility] LABORATORY PF Ratio Art 191 [facility] LABORATORY Specimen Anatomical Collection Method Collection Time Receive d Time (Source) Location / / Volume Laterality Blood 12/09/2021 5:14 AM 5:14 EDT AM EDT Iker Cuevas MD CHEMISTRY ORDERABLES Performing Organization Address City/State/[place] [address] POCT Glucose (12/09/2021 4:46 AM EDT) athologist Signature POC Glucose 198 65 - 199 [facility] SU mg/dL [facility]OR[facility] Comment: Supplemental ranges: <140 mg/dL before meals <180 mg/dL all other times of the day Specimen Anatomical Collection Method Collection Time Receive d Time (Source) Location / / Volume Laterality Blood 12/09/2021 4:46 AM 2 4:46 EDT AM EDT Iker Cuevas MD POINT OF CARE TEST ORDERABLE S Performing Organization Address City/State/[place] [address] (ABNORMAL) POCT Glucose (12/09/2021 3:01 AM EDT) athologist Signature POC Glucose 225 (H) 65 - 199 [facility] SU mg/dL [facility] LABOR[facility] Comment: Supplemental ranges: <140 mg/dL before meals <180 mg/dL all other times of the day Specimen Anatomical Collection Method Collection Time Receive d Time (Source) Location / / Volume Laterality Blood 12/09/2021 3:01 AM 2 3:01 EDT AM EDT Iker Cuevas MD POINT OF CARE TEST ORDERABLE S Performing Organization Address City/State/[place] [address] (ABNORMAL) POCT Glucose (12/08/2021 10:55 PM EDT) athologist Signature POC Glucose 327 (H) 65 - 199 [facility] mg/dL [facility] Comment: Supplemental ranges: <140 mg/dL before meals <180 mg/dL all other times of the day Specimen Anatomical Collection Method Collection Time Receive d Time (Source) Location / / Volume Laterality Blood 12/08/2021 10:55 12/08/2021 PM EDT 10:55 PM EDT Iker Cuevas MD POINT OF CARE TEST ORDERABLE S Performing Organization Address City/State/ZIP Code Phon e Number [place] [phone] Heparin (unfractionated) Level (12/08/2021 10:03 PM EDT) athologist [facility] Heparin UFH 0.18 IU/mL [facility] LABORATORY Comment: Heparin (anti-Xa) levels should [...] Organization Address City/State/ZIP Code Phon e Number [address] (ABNORMAL) Troponin (12/08/2021 10:03 PM EDT) [facility] 0.92 (H) 0.00 - [facility] 0.00 ng/mL [facility] LABORATORY Comment: The 99th percentile [...] additional sample may be indicated. Reference: Third [place] Definition of Myocardial Infarction. Journal of the [place] [employer] 2012;60:1581-98 Specimen Anatomical Collection Method Collection Time Receive d Time (Source) Location / / Volume Laterality Blood 12/08/2021 10:03 12/08/2021 PM EDT 10:31 PM EDT Resulting Agency Comment Spec In Lab Iker Cuevas MD CHEMISTRY ORDERABLES Performing Organization Address City/[facility]/[place] [address] (ABNORMAL) POCT Glucose (12/08/2021 8:22 PM EDT) athologist Signature POC Glucose 429 (H) 65 - 199 [facility] mg/dL [facility] LAB[facility]ORY Comment: Supplemental ranges: <140 mg/dL before meals <180 mg/dL all other times of the day Specimen Anatomical Collection Method Collection Time Receive d Time (Source) Location / / Volume Laterality Blood 12/08/2021 8:22 PM 8:22 EDT PM EDT Iker Cuevas MD POINT OF CARE TEST ORDERABLE S Performing Organization Address City/State/[place] [address] (ABNORMAL) POCT Glucose (12/08/2021 7:06 PM EDT) P athologist Signature POC Glucose 442 (H) 65 - 199 [facility] mg/dL [facility] LABOR[facility]ORY Comment: Supplemental ranges: <140 mg/dL before meals <180 mg/dL all other times of the day Specimen Anatomical Collection Method Collection Time Receive d Time (Source) Location / / Volume Laterality Blood 12/08/2021 7:06 PM 2 7:06 EDT PM EDT Iker Cuevas MD POINT OF CARE TEST ORDERABLE S Performing Organization Address City/State/ZIP Code Phon e Number [address] Magnesium (12/08/2021 6:02 PM EDT) athologist Signature Magnesium 0.86 0.69 - 1.07 [facility] mmol/L [facility] LABORATORY Specimen Anatomical Collection Method Collection Time Receive d Time (Source) Location / / Volume Laterality Blood 12/08/2021 6:02 PM 2 6:36 EDT PM EDT Resulting Agency Comment Spec In Lab Iker Cuevas MD CHEMISTRY ORDERABLES Performing Organization Address City/[facility]/[place] [address] (ABNORMAL) Basic Metabolic Panel (non-fasting) (12/08/2021 6:02 PM EDT) athologist Signature Glucose Lvl 392 (H) 65 - 199 [facility] mg/dL [facility] LABORATORY Comment: Diabetes: >=200 mg/dL plus symp toms BUN 41 (H) 10 - 20 mg/dL [facility] LABORATORY Creatinine 1.44 0.80 - 1.50 mg/dL [facility] [...] Organization Address City/State/ZIP Code Phon e Number [place] [id number]OS[address] Drive (ABNORMAL) Differential, Automated (12/08/2021 6:02 PM EDT) [facility] Method Time Signature Neutrophils % 89.5 % [facility] LABORATORY Neutr Abs (ANC) 13.97 (H) 1.70 - [facility] 6.10 [facility] x10(3)/[facility] L LABORATORY Lymphocytes % 3.7 % [facility] LABORATORY Lymphocytes Abs 0.6 (L) 0.9 - 3.2 [facility] x10(3)/[facility] LABORATORY Monocytes % 6.1 % [facility] LABORATORY Monocyte Abs 1.0 (H) 0.3 - 0.9 [facility] x10(3)/[facility] LABORATORY Eosinophils % 0.0 % [facility] LABORATORY Eosinophils Abs 0.0 0.0 - 0.4 [facility] x10(3)/[facility] LABORATORY Basophils % 0.2 % [facility] LABORATORY Basophils Abs 0.0 0.0 - 0.1 [facility] x10(3)/[facility] LABORATORY Immature Gran % 0.50 [...] Abs 0.08 (H) 0.00 - 0.04 x10(3)/[facility] LABORATORY Specimen Anatomical Collection Method Collection Time Receive d Time (Source) Location / / Volume Laterality Blood 12/08/2021 6:02 PM 6:36 EDT PM EDT Resulting Agency Comment Spec In Lab Morgan BROWN HEMATOLOGY ORDERABLES Performing Organization Address City/State/[place] [address] (ABNORMAL) Hemogram (12/08/2021 6:02 PM EDT) Analysis Performed At Patho logist Time Signature WBC 15.6 (H) 4.0 - 9.5 [facility] x10(3)/[facility] LABORATORY RBC 4.05 (L) 4.58 - [facility] 5.54 [facility] x10(6)/[facility] LABORATORY Hemoglobin 11.8 (L) 13.7 - [facility] 16.[facility] g/dL [facility] Hematocrit 35.8 (L) 40.5 - [facility] 48.5 % [facility]AT[facility] MCV 88.4 82.9 - [facility] 93.1 [facility] LABORATORY MCH 29.1 27.5 - [facility] 32.1 pg [facility]AT[facility] MCHC 33.0 32.0 - [facility] 35.7 g/dL [facility] Platelets 178 145 - 357 [facility] x10(3)/[facility] LABORATORY RDWSD 49.3 (H) 36.0 - [facility] 45.0 [facility] LABORATORY RDWCV 15.1 (H) 11.4 - [facility] 13.8 % [facility] LABORATORY MPV 10.4 7.6 - 12.9 [facility] fL [facility] LABORATORY nRBC % Auto 0.0 % [facility] LABORATORY nRBC Abs Auto 0.000 0.000 - [facility] 0.000 [facility] x10(3)/[facility] LABORATORY Specimen Anatomical Collection Method Collection Time Receive d Time (Source) Location / / Volume Laterality Blood 12/08/2021 6:02 PM 6:36 EDT PM EDT Resulting Agency Comment Spec In Lab Morgan BROWN HEMATOLOGY ORDERABLES Performing Organization Address City/State/[place] [address] (ABNORMAL) Troponin (12/08/2021 6:02 PM EDT) P athologist Signature Troponin-T 0.89 (H) 0.00 - [facility] 0.00 ng/mL [facility] LABORATORY Comment: The 99th percentile [...] additional sample may be indicated. Reference: Third [place] Definition of Myocardial Infarction. Journal of the [place] [employer] 2012;60:1581-98 Specimen Anatomical Collection Method Collection Time Receive d Time (Source) Location / / Volume Laterality Blood 12/08/2021 6:02 PM 2 6:36 EDT PM EDT Resulting Agency Comment Spec In Lab Iker Cuevas MD CHEMISTRY ORDERABLES Performing Organization Address City/State/ZIP Code [place] [address] COVID-19 PCR (12/08/2021 5:00 PM EDT) [facility] Method Time Signature SARS-CoV-2 Not Detected Not Detected BARBARA RNA PCR [facility] Comment: This result [...] using the Simplexa COVID-19 Direct Assay by [employer] YingYang as authorized by the FDA issued Emergency [...] Pathology and Laboratory Medicine at [facility], certified under the Clinical Laboratory Improvement [...] clinical management guidance information are available at [facility] CDC Coronavirus Disease 2019 (COVID-19) webpage under Information fo r Healthcare Professionals (https://www.cdc.gov/coronavirus/2019-nc ov/hcp/index.html). Additional information about this and ot her EUA tests can be found in provider and patient fact sheets at the following FDA website: https://www.fda.gov/medical-devices/nwtlgzqlxpp-xalivry-8358-zufjx-06-blxergzkj- bqf-bolutcjrofppnc-kmpaevt-devices/tpwze-uiciedszihi-qdzz SARS-CoV-2 Source ICER MACHINE Swab [facility] Specimen (Source) Anatomical Collection Method Collection Time Re ceived Time Location / / Volume Laterality Nasopharyngeal Swab 12/08/2021 5:00 12/08 PM EDT 6:03 PM EDT Comment: Symptoms->Surveillance Resulting Agency Comment Spec In Lab Iker Cuevas MD MICROBIOLOGY - GENERAL ORDER [place] Performing Organization Address City/State/[place] [address] EKG 12 Lead (12/08/2021 4:40 PM EDT) Component Value Ref Range Test Analysis Performed Pathologis t Method Time At Signature Ventricular rate 78 BPM MUSE SYSTEM Atrial Rate 78 BPM MUSE SYSTEM P-R Interval 152 ms MUSE SYSTEM QRS Duration 96 ms MUSE SYSTEM Q-T Interval 396 ms MUSE SYSTEM QTC Calculated 451 ms MUSE SYSTEM (Bezet) Calculated P [place] 44 degrees MUSE SYSTEM Calculated R [place] -31 degrees MUSE SYSTEM Calculated T [place] 124 degrees MUSE SYSTEM INTERPRETATION Normal sinus [...] POC Glucose 400 (H) 65 - 199 [facility] mg/dL [facility] Comment: Supplemental ranges: <140 mg/dL before meals <180 mg/dL all other times of the day Specimen Anatomical Collection Method Collection Time Receive d Time (Source) Location / / Volume Laterality Blood 12/08/2021 4:34 PM 2 4:34 EDT PM EDT Iker Cuevas MD POINT OF CARE TEST ORDERABLE S Performing Organization Address City/State/[place] [address] documented in this encounter [...] Coronary atherosclerosis of unspecified type of vessel, [place] or graft Cardiomyopathy, ischemic Other specified forms [...] RN) 0829 (Given - Provider: Lilliana Esteban, AVMSI) 75 mg, Oral, DAILY, First dose on [...] furosemide (Lasix) (10 mg/mL) injection 80 mg ([facility] ED) 174 (Given - Provider: Emma Garcia [...] Fatima, RN)1243 (Stopped - Provider: Emma Garcia, VASMI) 2 g, Intravenous, ONCE, 1 dose, On [...] solution 1 mg( Linked Group 2) 804 ([facility] Hold - Provider: Admin Adt - [...] (Glutose) 40% oral geL(Linked Group 2) 804 ([facility] Hold - Provider: Admin Adt - Reason: Transfer to a Procedural area)1229 ([facility] Unhold - Provider: Admin Adt) 15-30 [...] (Intra-Procedure), Routine niCARdipine (Cardene) (100 mcg/mL) dilution (JIRA DEVELOPER) (CANCELED) 1030 (Given - Provider: Vitaliy Nobles [...] episode. & nbsp; For persistent hypoglycemia, con occupational health physician longer-acting treatment for the duration of the [...]
Routine documented in this encounter Care Teams Judicial Law Clerk Relationship Specialty Start Date End Date Lovely Vicente MD PCP - General 04/16/[address] [place] [address] documented as of this encounter
--- OUTSIDE RECORDS SUMMARY | 2022-03-16 08:14 | XMS_ITS | Encounter Summary ---
:1945 Author Organization [facility] [place] [address] Care Team Providers Name Role Phone Lovely Vicente MD Primary Care Provider Encounter Details Date Type Department Care Team Description 12/07/2021 Ancillary Procedure Radiology [facility] Lovely murillo MD [facility] [id number] [place] [address] (Mikayla alcaraz) [phone] Social History Tobacco Use Types Packs/Day Years [...] MD [facility] MEDICAL [facility] ER [address] [place]LYLE [place] [address] (Wo rk) 05/28/2022 Appointment Cardiology Zulma Dolan MD [facility] er [address] [place] [address] (Wo rk) 05/28/2022 Laboratory Appointment Lab 05/28/2022 Office Visit Cardiology Zulma Dolan MD [facility] [place] [address] Liz Poole PA [facility] [place] [address] 06/10/2022 Office Visit Dermatology Laura Scherer MD [facility] ER DR [address]-DERMAT [facility] [place] [place] [address] (Wo rk) documented as of [...] Address City/State/ZIP Code Phon e Number [place] documented in this encounter Visit Diagnoses Not on filedocumented in this encounter Care Teams Standpipe Tender Relationship Specialty Start Date End Date Lovely Vicente MD PCP - General 04/16/[address] [place] [address] documented as of this encounter
--- OUTSIDE RECORDS SUMMARY | 2022-03-16 08:15 | XMS_ITS | Encounter Summary ---
:1945 Author Organization [place] [address] Care Team Providers Name Role Phone Lovely Vicente MD Primary Care Provider Reason for Referral Diagnostic Test (Routine) - Closed Specialty Diagnoses / Procedures Referred By Contact Refer red To Contact Cardiology Diagnoses Chronic systolic heart failure Danette Maxwell APRN [facility] Non-Inv Card Lab Procedures Echocardiogram Transthoracic(Leb) [place] [address] [place] [address] Referral ID Status Reason Start Date Expiration Date Visits V isits Requested Authorized [id number] Closed Specialty 07/17/2019 09/14/2019 1 1 Service Requested Reason for Visit Diagnostic Test (Routine) - Closed Specialty Diagnoses / Procedures Referred By Contact Refer red To Contact Cardiology Diagnoses Chronic systolic heart failure Danette Maxwell APRN [facility] Non-Inv Card Lab Procedures Echocardiogram Transthoracic(Leb) [facility] [place] [address] [place] [address] Referral ID Status Reason Start Date Expiration Date Visits V isits Requested Authorized [id number] Closed Specialty 07/17/2019 09/14/2019 1 1 Service Requested Encounter Details Date Type Department Care Team Description 07/28/2019 Hospital Encounter Non-Invasive Chronic s ystolic [place] [address] Social History Tobacco Use Types Packs/Day [...] Cardiology Vitaliy Nobles MD [facility] CARDIOLOGY [place], [place] 0[address] (Wo rk) 05/28/2022 Appointment Cardiology Zulma Dolan MD [facility] [place], [place] 0[address] (Wo rk) 05/28/2022 Laboratory Appointment Lab 05/28/2022 Office Visit Cardiology Zulma Dolan MD [facility] [place] [address] [facility] [place] [address] 06/10/2022 Office Visit Dermatology Laura Scherer MD [facility] DR TE[address]-DERMAT OLOGY [place], [place] 0375 (Wo rk) documented as of this encounter Procedures Procedure Name Priority Date/Time Associated Comments Diagnosis ECHOCARDIOGRAM COMPLETE Routine 07/28/2019 8:19 AM Chronic sys tolic Results for this W CONTRAST EST heart failure procedure are in the results section. documented in this encounter Results ECHOCARDIOGRAM COMPLETE W CONTRAST (07/28/2019 8:19 AM EST) P athologist Signature EF 40 Next [facility] Living SYSTEM Specimen (Source) Anatomical Location Collection Method / Collectio n Time Received Time / Laterality Volume 07/28/2019 Narrative [facility] - 07/28/2019 8:38 AM EST Procedure: ?Transthoracic Echocardiogram Patient: ?NATALYA Mccollum ? (Age): 1945(74y) Med Rec#: ? [id number] ?Sex: ?M ? [place] ? [facility] [place]Ht / Wt: ??172(cm)/81(kg) Pt. Loc: ?Echo Lab ?BSA: ?1.94 Study Date: ?? 07/28/2019 ?Pt. Type: Outpatient Tape: ? Referring: MARY ELLEN Reading: Ifeanyi Truong ([id number]) Library Customer Service Clerk: Fadumo Flanagan RDCS, FASE Diagnosis: *Chronic systolic [...] E-wave Vmax ?1 ?m/sec ? MV deceleration bffw365.5 ? msec ? MV A-wave Vmax ?1 [...] ? Mid-Inferior ?Hypokinetic ? Mid-Inferoseptal ?Normal ? Hammond-Septal ? Normal ? Hammond-Anterior ? Hypokinetic ? Hammond-Lateral ?Normal ? Hammond-Inferior ? Akinetic ? Hammond-Tip ?Hypokinetic ? This report has been electronically sign ed by: _ Ifeanyi Truong M.D. ? 07/28/2019 0 8:38:01 Images reviewed and interpretation verif ied [facility] Cardiac Ultrasound Laboratory Procedure Note Ifeanyi Truong MD - 07/28/2019Formatt ing of this note might be different from the original. Procedure: Transthoracic Echocardiogram Patient: NATALYA MCBRIDE(Age): [birth year]74y) Med Rec#: [id number] Sex: M [place] [facility] [place] Ht / Wt: 172(cm)/81(kg) Pt. Loc: Echo Lab BSA: 1.94 Study Date: 07/28/2019 Pt. Type: Outpati ent Tape: Referring: MARY ELLEN Reading: Ifeanyi Truong ([id number]) Library Customer Service Clerk: Fadumo Flanagan RDCS, FASE Diagnosis: *Chronic systolic [...] MV E-wave Vmax 1 m/sec MV deceleration fzuo271.5 msec MV A-wave Vmax 1 m/sec MV [...] Normal Mid-Posterolateral Normal Mid-Inferior Hypokinetic Mid-Inferoseptal Normal Hammond-Septal Normal Hammond-Anterior Hypokinetic Hammond-Lateral Normal Hammond-Inferior Akinetic Hammond-Tip Hypokinetic This report has been electronically sign ed by: _ Ifeanyi Truong M.D. 07/28/2019 08:38:0 1 Images reviewed and interpretation elvie hwang [facility] Cardiac Ultrasound Laboratory Danette Maxwell [...] Routine documented in this encounter Care Teams Field Auto Appraiser Relationship Specialty Start Date End Date Lovely Vicente MD PCP - General 04/16/[address] [place] [address] documented as of this encounter
--- OUTSIDE RECORDS SUMMARY | 2022-03-16 08:15 | XMS_ITS | Encounter Summary ---
:1945 Author Organization [facility] [place] [address] Care Team Providers Name Role Phone Lovely Vicente MD Primary Care Provider Encounter Details Date Type Department Care Team Description 07/28/2019 Laboratory Appointment Lab 3L [facility] [place] [id number] Social History Tobacco Use Types Packs/Day Years [...] MD [facility] DR CARLYLE [place], [place] 0375 (Wo rk) 05/28/2022 Appointment Cardiology Zulma Dolan MD [facility] [address] [place], [place] [address] (Wo rk) 05/28/2022 Laboratory Appointment Lab 05/28/2022 Office Visit Cardiology Zulma Dolan MD [facility] [place] [address] Liz Poole PA [facility] [place] [address] 06/10/2022 Office Visit Dermatology Laura Scherer MD [facility] ER DR [address]-DERMAT OLOGY [place], [place] 0375 (Wo rk) documented as of [...] Organization Address City/State/[place] [address] (ABNORMAL) Basic Metabolic Panel (non-fasting) (07/28/2019 8:36 AM EST) athologist Signature Glucose Lvl 153 65 - 199 [facility] mg/dL [facility] Comment: Diabetes: >=200 mg/dL plus symp toms BUN 22 (H) 10 - 20 mg/dL [facility] [...] mg/dL [facility] Estimated GFR 70 >=60 mL/min/1.73 m?? [facility] Comment: The eGFR was calculated using the CKD-EP I equation. As with all creatinine based estimates of kidney function, eGFR values calculated with the CKD-EPI equation are not accurate in patients wi th acute kidney failure, extremes of body mass or the acutely ill. http://[employer]/[facility]f eGFR 81 >=60 mL/min/1.73 m?? [facility] Comment: The eGFR was calculated using the CKD-EP I equation. As with all creatinine based estimates of kidney function, eGFR values calculated with the CKD-EPI equation are not accurate in patients wi th acute kidney failure, extremes of body mass or the acutely ill. http://[employer]izmore/[facility]nkf Specimen Anatomical Collection Method Collection Time Receive d Time (Source) Location / / Volume Laterality Blood specimen 07/28/2019 8:36 AM 020 8:46 (specimen) EST AM EST Resulting Agency Comment Spec In Lab Danette Maxwell APRN CHEMISTRY ORDERABLES Performing Organization Address City/State/Z[place] [address] documented in this encounter Visit Diagnoses Diagnosis Chronic systolic heart failure documented in this encounter Care Teams Waterproofing Mixer Relationship Specialty Start Date End Date Lovely Vicente MD PCP - General 04/16/[address] [place] [address] documented as of this encounter
--- OUTSIDE RECORDS SUMMARY | 2022-03-16 08:15 | XMS_ITS | Encounter Summary ---
:1945 [place] [address] Care Team Providers Name Role Phone Lovely Vicente MD Primary Care Provider Encounter Details Date Type Department Care Team Description 11/29/2017 Hospital Encounter Radiology Library at Estefany Maxwell Pain [facility] SCREW DRIVER OPERATOR [facility] [place] [address] CARDIOLOGY [phone] [place], [place] [address] (Wo rk) Social History Tobacco [...] Nobles MD [facility] CARDIOLOGY [place], [place] 0375 (Wo rk) 05/28/2022 Appointment Cardiology Zulma Dolan MD [facility] [place], [place] 0375 (Wo rk) 05/28/2022 Laboratory Appointment Lab 05/28/2022 Office Visit Cardiology Zulma Dolan MD [facility] [place] [address] Liz Poole PA [facility] [place] [address] 06/10/2022 Office Visit Dermatology Laura Scherer MD [facility] DR TEJA GR[address]DERMAT OLOGY [place], [place] 0[address] (Wo rk) documented as of [...] Time Received Time / Laterality Volume Narrative [facility] - 12/28/2017 11:07 AM EDT This exam is for storage only and is aut o-finalizing. Danettebrock Maxwell SCREW DRIVER OPERATOR IMG FILM LIBRARY ORDERABLES Performing Organization Address City/State/ZIP Code Phon e Number [place], [place] documented in this encounter Visit Diagnoses Diagnosis Pain Generalized pain documented in this encounter Care Teams Insulator Helper Relationship Specialty Start Date End Date Lovely Vicente MD PCP - General 04/16/[address] [place] [address] documented as of this encounter
--- OUTSIDE RECORDS SUMMARY | 2022-03-16 08:15 | XMS_ITS | Encounter Summary ---
:1945 Author Organization [facility] [place] [address] Care Team Providers Name Role Phone Lovely Vicente MD Primary Care Provider Encounter Details Date Type Department Care Team Description 08/15/2018 Office Visit Cardiology [place] [facility] Danette Maxwell Chronic systolic heart failu re; [facility] A, MARITIME OFFICER Cardiomyopathy, ischemic; [facility] ASCVD (arteriosclerotic card iovascular disease); [place], [place] Essential hypertension; [phone] CARDIOLOGY MARIA VICTORIA on CPAP [phone] [place], [place] [address] Social History Tobacco Use Types [...] in this encounter Progress Notes Danette Maxwell, MARITIME OFFICER - 08/15/2018 9:00 AM EST Images from [...] is always better at therapy Call to [facility] PT Denies lightheadedness or dizziness Denies [...] K+ 4.6 today 6. Post-op atrial fibrillation [id number] (CHF, HTN, DM, vascular disease, thromboembolism) Amiodarone discontinued Continue coumadin INR managed by PCP. 2.1 today 7. PAD 08/06/2017: Right 1st, 2nd, 3rd toe amputation 08/11/2017: Left??femoral arterial access, RLE??angiogram, Balloon angioplasty of R PT with Eleazar 2.5 x 80 10/25/2017: right popliteal-pedal bypass at [facility] 8. Hypothyrodism S/p thyroidectomy for [...] follow up scheduled for: 4-6 month follow-up Dantete Maxwell APRN 08/14/2018 documented in this encounter Plan of Treatment Upcoming Encounters Date Type Specialty Care Team Description 03/26/2022 Office Visit Cardiology Vitaliy Nobles MD [facility] DR CARLY[address] [place]AB[place] 0375 (Wo rk) 05/28/2022 Appointment Cardiology Zulma Dolan MD [facility] Dr [address] [place] 0[address] (Wo rk) 05/28/2022 Laboratory Appointment Lab 05/28/2022 Office Visit Cardiology Zulma Dolan MD [facility] [place] [address] Liz Poole PA [facility] [place] [address] 06/10/2022 Office Visit Dermatology Laura Scherer MD [facility] ER DR LEZAMA RD-DERMAT [place], [place] 0375 (Wo rk) documented as of this encounter Results Lipid Panel (08/15/2018 8:04 AM EST) athologist Signature Chol, Total 75 mg/dL [facility] Comment: Lower Risk: <200 mg/dL Average Risk: 200-239 mg/dL Higher Risk: >mk=600 mg/dL Triglycerides 185 mg/dL [facility] Comment: Average Risk/Lower Risk: <150 mg/dL Borderline High Risk: 150-199 mg/dL High Risk: 200-499 mg/dL Very High Risk: >tz=977 mg/dL HDL 32 mg/dL [facility] Comment: Males: ?? Higher Risk: <40 mg/dL Females: ?? HIgher Risk: <50 mg/dL LDL Cholesterol 6 mg/dL [facility] Comment: Lowest Risk: <100 mg/dL Lower Risk: 100-129 mg/dL Borderline High Risk: 130-159 mg/dL High Risk: 160-189 mg/dL Very High Risk: >xb=858 mg/dL Chol/HDL Ratio 2.3 ratio [facility] Lipid Interpretation See Note [facility] Comment: Lipid management should be guided by a p atient? s ASCVD risk, goals and preferences. ACC/AHA Guidelines recommend high intens ity statin if clinical ASCVD or LDL greater than or equal to 190 mg/dL. http://tinyurl.com/NAV-DLV-Mtuzfohkq Adults aged 40-75 with LDL 70-189 mg/dL should have their 10 year ASCVD risk estimated with the ACC/AHA ASCVD risk es timator http://tools.acc.org/LLCQO-Fjhg-Kzijwmip r/ Statin should be discussed if risk [...] Organization Address City/State/[place] [address] (ABNORMAL) Basic Metabolic Panel (non-fasting) (08/15/2018 8:04 AM EST) P athologist Signature Glucose Lvl 116 65 - 199 [facility] mg/dL [facility] Comment: Diabetes: >=200 mg/dL plus symp toms BUN 21 (H) 10 - 20 mg/dL [facility] Creatinine 1.08 0.80 - 1.50 [...] Gap 15 5 - 15 mmol/L [facility] Calcium 9.0 8.5 - 10.5 [...] of body mass or the acutely ill. http://inGenius Engineering/[facility]nk eGFR 79 >=60 mL/min/1.73 m?? [facility] Comment: The eGFR was calculated using the CKD-EP I equation. As with all creatinine based estimates of kidney function, eGFR values calculated with the CKD-EPI equation are not accurate in patients wi th acute kidney failure, extremes of body mass or the acutely ill. http://[employer] Engineering/[facility]ON[facility]f Specimen Anatomical Collection Method Collection Time Receive d Time (Source) Location / / Volume Laterality Blood specimen 08/15/2018 8:04 AM 019 8:20 (specimen) EST AM EST Resulting Agency Comment Spec In Lab Danette Maxwell APRN CHEMISTRY ORDERABLES Performing Organization Address City/[facility]/ZIP [place] [address] (ABNORMAL) pro-Brain Natriuretic Peptide (08/15/2018 8:04 AM EST) P athologist Signature ProBNP 1,797 (H) <=125 [facility] pg/mL [facility] Specimen Anatomical Collection Method Collection Time Receive d Time (Source) Location / / Volume Laterality Blood specimen 08/15/2018 8:04 AM 019 8:20 (specimen) EST AM EST Resulting Agency Comment Spec In Lab Danette Maxwell APRN CHEMISTRY ORDERABLES Performing Organization Address City/State/[place] [address] documented in this encounter Visit Diagnoses Diagnosis Chronic systolic heart failure Cardiomyopathy, ischemic Other specified forms of chronic ischemi c heart disease ASCVD (arteriosclerotic cardiovascular d isease) Unspecified cardiovascular disease Essential hypertension Unspecified essential hypertension MARIA [place]IA on CPAP Obstructive sleep apnea (adult) (pediatr ic) documented in this encounter Care Teams Bulk Folder Relationship Specialty Start Date End Date Lovely Vicente MD PCP - General 04/16/[address] [place] [address] [address] [place] [address] documented as of this encounter
--- OUTSIDE RECORDS SUMMARY | 2022-03-16 08:15 | XMS_ITS | Encounter Summary ---
:1945 Author Organization [facility] [place] [address] Care Team Providers Name Role Phone Lovely Vicente MD Primary Care Provider Encounter Details Date Type Department Care Team Description 01/16/2019 Laboratory Appointment Lab 3L [facility] [place] [phone] Social History Tobacco Use Types Packs/Day Years [...] Vitaliy Nobles MD [facility] DR [address]LYLE [place], [place] [address] (Wo rk) 05/28/2022 Appointment Cardiology Zulma Dolan MD [facility] Dr [place], [place] [address] (Wo rk) 05/28/2022 Laboratory Appointment Lab 05/28/2022 Office Visit Cardiology Zulma Dolan MD [facility] [place] [address] Liz Poole PA [facility] [place] [address] 06/10/2022 Office Visit Dermatology Laura Scherer MD [facility] ER DR LEZ[address] RD-DERMAT OLOGY [place], [place] 0375 (Wo rk) documented as [...] Organization Address City/State/[place] [address] (ABNORMAL) Basic Metabolic Panel (non-fasting) (01/16/2019 7:49 AM EDT) athologist Signature Glucose Lvl 105 65 - 199 [facility] mg/dL [facility] [...] of body mass or the acutely ill. http://Eponym/[facility] eGFR 79 >=60 mL/min/1.73 m?? [facility] Comment: The eGFR was calculated using the CKD-EP I equation. As with all creatinine based estimates of kidney function, eGFR values calculated with the CKD-EPI equation are not accurate in patients wi th acute kidney failure, extremes of body mass or the acutely ill. http://Eponym/[facility] Specimen Anatomical Collection Method Collection Time Receive d Time (Source) Location / / Volume Laterality Blood specimen 01/16/2019 7:49 AM 019 7:55 (specimen) EDT AM EDT Resulting Agency Comment Spec In Lab Danette Maxwell APRN CHEMISTRY ORDERABLES Performing Organization Address City/State/[place] [address] documented in this encounter Visit Diagnoses Diagnosis Chronic systolic heart failure documented in this encounter Care Teams Take Away Man Relationship Specialty Start Date End Date Lovely Vicente MD PCP - General 04/16/[address] [place] [address] documented as of this encounter
--- OUTSIDE RECORDS SUMMARY | 2022-03-16 08:15 | XMS_ITS | Encounter Summary ---
:1945 Author Organization [facility] [place] [address] Care Team Providers Name Role Phone Lovely Vicente MD Primary Care Provider Encounter Details Date Type Department Care Team Description 11/29/2017 Office Visit Cardiology at [facility] Annette Viveros Chronic systolic congestive heart failure; [facility] A, BADGER DISTILLER OPERATOR ASCVD (arteriosclerotic cardiovascular d isease); [facility] Cardiomyopathy, ischemic; [place], [place] PAD (peripheral artery disease) [id number] CARDIOLOGY [phone] [place], [place] [address] Social History Tobacco Use Types [...] in this encounter Progress Notes Annette Viveros, BADGER DISTILLER OPERATOR - 11/29/2017 9:20 AM EDT ID [...] 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 [...] using left greater saphenous vein (done at [facility]), debridement of right [...] x 80 10/25/2017: right popliteal-pedal bypass at [facility] ? Plan: 1. A review of [...] MD [facility] DR CARLYLE [place], [place] [address] (Wo rk) 05/28/2022 Appointment Cardiology Zulma Dolan MD [facility] Dr [place] [address] (Wo rk) 05/28/2022 Laboratory Appointment Lab 05/28/2022 Office Visit Cardiology Zulma Dolan MD [facility] [place] [address] Liz Poole PA [facility] [place] [address] 06/10/2022 Office Visit Dermatology Laura Scherer MD [facility] ER DR TEJA GR-DERMAT [place], [place] [address] (Wo rk) documented as of this encounter Results Arterial Duplex Leg, Unil (11/29/2017 10:32 AM EDT) Component Value Ref Test Analysis Performed At [facility] Range Method Time Signature VB Text Department: Vascular Surgery Lab VASCUBASE Report Patient: [id number] (GREGORY FATIMA) CPT: 72599 ICD10: I72.4;I73.9 Referring Physician: ANNETTE VIVEROS ?? [...] Glucose Lvl 217 (H) 65 - 199 [place] mg/dL [facility] Comment: Diabetes: >=200 mg/dL plus symp toms BUN 26 (H) 10 - 20 mg/dL [facility] Creatinine 0.96 0.80 - 1.50 mg/dL [facility] Sodium 137 135 - 145 mmol/L [facility] Potassium 4.1 3.5 - 5.0 mmol/L [facility] [...] or in patients with acute kidney failure. [email or web address]/DHnkdep [email or web address]/DHMCnkf Specimen Anatomical Collection Method Collection Time Receive d Time (Source) Location / / Volume Laterality Blood specimen 11/29/2017 8:22 AM 018 8:29 (specimen) EDT AM EDT Resulting Agency Comment Spec In Lab Annette Viveros BADGER DISTILLER OPERATOR CHEMISTRY ORDERABLES Performing Organization Address City/State/ZIP [place] [address] (ABNORMAL) pro-Brain Natriuretic Peptide (11/29/2017 8:22 AM EDT) P athologist Signature ProBNP 1,769 (H) <=125 [facility] pg[facility]mL [facility] Specimen Anatomical Collection Method Collection Time Receive d Time (Source) Location / / Volume Laterality Blood specimen 11/29/2017 8:22 AM 018 8:29 (specimen) EDT AM EDT Resulting Agency Comment Spec In Lab Annette Viveros BADGER DISTILLER OPERATOR CHEMISTRY ORDERABLES Performing Organization Address City/[facility]/ZIP Code [place] [address] documented in this encounter Visit Diagnoses Diagnosis Chronic systolic congestive heart failur e Chronic systolic heart failure ASCVD (arteriosclerotic cardiovascular d isease) Unspecified cardiovascular disease Cardiomyopathy, ischemic Other specified forms of chronic ischemi c heart disease PAD (peripheral artery disease) Peripheral vascular disease, unspecified documented in this encounter Care Teams Size Worker Relationship Specialty Start Date End Date Lovely Vicente MD PCP - General 04/16/[address] [place] [address] documented as of this encounter
--- OUTSIDE RECORDS SUMMARY | 2022-03-16 08:15 | XMS_ITS | Encounter Summary ---
:1945 Author Organization [facility] [place] [address] Care Team Providers Name Role Phone Lovely Vicente MD Primary Care Provider Encounter Details Date Type Department Care Team Description 04/18/2018 Laboratory Appointment Lab 3L [facility] [place] [id number] Social History Tobacco Use Types Packs/Day Years [...] MD [facility] DR CARLYLE [place]AV[place], [place] [address] (Wo rk) 05/28/2022 Appointment Cardiology Zulma Dolan MD [facility] Dr [place], [place] [address] (Wo rk) 05/28/2022 Laboratory Appointment Lab 05/28/2022 Office Visit Cardiology Zulma Dolan MD [facility] [place] [address] Liz Poole PA [facility] [place] [address] 06/10/2022 Office Visit Dermatology Laura Scherer MD [facility] ER DR [address]-DERMAT OLOGY [place], [place] 0[address] (Wo rk) documented as of [...] 7.6 6.1 - 8.0 KATALINA RYAN gm/dL [facility] Albumin 4.0 3.2 - 5.2 KATALINA RYAN gm/dL [facility] AST 36 0 - 39 KATALINA RYAN unit/L [facility] ALT 27 0 - 55 KATALINA RYAN unit/L [facility] Alk Phos 96 40 - 120 KATALINA RYAN unit/L [facility] Total 0.7 0.2 - 1.3 KATALINA RYAN Bilirubin mg/dL [facility] Bili, Direct 0.1 0.0 - 0.3 KATALINA RYAN mg/dL [facility] Specimen Anatomical Collection Method Collection Time Receive d Time (Source) Location / / Volume Laterality Blood specimen Venous Draw / 04/18/2018 9:19 AM 2017 9:44 (specimen) Unknown EDT AM EDT Resulting Agency Comment Spec In Lab Danette Maxwell RN [facility] CHEMISTRY ORDERABLES Performing Organization Address City/State/ZIP Code Phon e Number [address] TSH (04/18/2018 9:19 AM EDT) athologist Signature TSH 1.77 0.27 - 4.20 [facility] mlU/ML [facility] Specimen Anatomical Collection Method Collection Time Receive d Time (Source) Location / / Volume Laterality Blood specimen Venous Draw / 04/18/2018 9:19 AM 2017 9:44 (specimen) Unknown EDT AM EDT Resulting Agency Comment Spec In Lab Danette Maxwell STACIE CHEMISTRY ORDERABLES Performing Organization Address City/State/ZIP Code Phon e Number [address] (ABNORMAL) Basic Metabolic Panel (non-fasting) (04/18/2018 9:19 AM EDT) [facility] Glucose Lvl 167 65 - 199 [facility] mg/dL [facility] Comment: Diabetes: >=200 mg/dL plus symp toms BUN 18 10 - 20 mg/dL [facility] Creatinine 1.19 0.80 - 1.50 mg/dL [facility] Sodium 147 (H) 135 - 145 mmol/L [place] [...] mmol/L [facility] Anion Gap 23 (H) 5 - 15 mmol/L [facility] Calcium 9.3 8.5 - 10.5 mg/dL [facility] Estimated GFR 61 >=60 mL/min/1.73 m?? [facility] Comment: The eGFR was calculated using the CKD-EP I equation. As with all creatinine based estimates of kidney function, eGFR values calculated with the CKD-EPI equation are not accurate in patients wi th acute kidney failure, extremes of body mass or the acutely ill. http://[employer]/[facility] CITYnkf eGFR 70 >=60 mL/min/1.73 m?? [facility] Comment: The eGFR was calculated using the CKD-EP I equation. As with all creatinine based estimates of kidney function, eGFR values calculated with the CKD-EPI equation are not accurate in patients wi th acute kidney failure, extremes of body mass or the acutely ill. http://[employer]/[facility] OK[facility] CITYnkf Specimen Anatomical Collection Method Collection Time Receive d Time (Source) Location / / Volume Laterality Blood specimen 04/18/2018 9:19 AM 018 9:34 (specimen) EDT AM EDT Resulting Agency Comment Spec In Lab Danette Maxwell APRN CHEMISTRY ORDERABLES Performing Organization Address City/State/[place] [address] (ABNORMAL) pro-Brain Natriuretic Peptide (04/18/2018 9:19 AM EDT) P athologist Signature ProBNP 2,199 (H) <=125 [facility] pg/mL [facility] Specimen Anatomical Collection Method Collection Time Receive d Time (Source) Location / / Volume Laterality Blood specimen 04/18/2018 9:19 AM 018 9:34 (specimen) EDT AM EDT Resulting Agency Comment Spec In Lab Danette Maxwell APRN CHEMISTRY ORDERABLES Performing Organization Address City/State/[place] [address] documented in this encounter Visit Diagnoses Diagnosis Chronic systolic heart failure documented in this encounter Care Teams Engineering Research Manager Relationship Specialty Start Date End Date Lovely Vicente MD PCP - General 04/16/[address] [place] [address] documented as of this encounter
--- OUTSIDE RECORDS SUMMARY | 2022-03-16 08:15 | XMS_ITS | Encounter Summary ---
:1945 Author Organization [facility] [place] [address] Care Team Providers Name Role Phone Lovely Vicente MD Primary Care Provider Encounter Details Date Type Department Care Team Description 03/20/2021 Ancillary Procedure Radiology Library [place] [address] [place] [address] [phone] Social History Tobacco Use Types Packs/Day Years [...] MD [facility] DR [place]O [place], [place] [address] (Wo rk) 05/28/2022 Appointment Cardiology Zulma Dolan MD [facility] Dr [place], [place] [address] (Wo rk) 05/28/2022 Laboratory Appointment Lab 05/28/2022 Office Visit Cardiology Zulma Dolan MD [facility] [place] [address] Liz Poole PA [facility] [address] 06/10/2022 Office Visit Dermatology Laura Scherer MD [facility] ER DR [address]DERMAT [place], [place] [address] (Wo rk) documented as [...] Address City/State/ZIP Code Phon e Number [place], [place] documented in this encounter Visit Diagnoses Not on filedocumented in this encounter Care Teams Dairy Nutrition Specialist Relationship Specialty Start Date End Date Lovely Vicente MD PCP - General 04/16/[address] [place] [address] documented as of this encounter
--- OUTSIDE RECORDS SUMMARY | 2022-03-16 08:15 | XMS_ITS | Encounter Summary ---
:1945 Author Organization [facility] [place] [address] Care Team Providers Name Role Phone Lovely Vicente MD Primary Care Provider Encounter Details Date Type Department Care Team Description 03/20/2021 Ancillary Procedure Radiology Library at [place] [address] [place] [address] [phone] Social History Tobacco Use Types Packs/Day Years [...] MD [facility] DR TADEO [place], [place] [address] (Wo rk) 05/28/2022 Appointment Cardiology Zulma Dolan MD [facility] Dr [place], [place] [address] (Wo rk) 05/28/2022 Laboratory Appointment Lab 05/28/2022 Office Visit Cardiology Zulma Dolan MD [facility] [place] [address] Liz Poole PA [facility] [place] [address] 06/10/2022 Office Visit Dermatology Laura Scherer MD [facility] ER DR [address]DERMAT [place], [place] [address] (Wo rk) documented as [...] Address City/State/ZIP Code Phon e Number RAD [place], [place] documented in this encounter Visit Diagnoses Not on filedocumented in this encounter Care Teams Dial Refinisher Relationship Specialty Start Date End Date Lovely Vicente MD PCP - General 04/16/[address] [place] [address] documented as of this encounter
--- OUTSIDE RECORDS SUMMARY | 2022-03-16 08:15 | XMS_ITS | Encounter Summary ---
:1945 Author Organization [facility] Address [facility] [place] [address] Care Team Providers Name Role Phone Lovely Vicente MD Primary Care Provider Reason for Referral Diagnostic Test (Routine) - Closed Specialty Diagnoses / Procedures Referred By Contact Refer red To Contact Cardiology Diagnoses Chronic systolic heart failure Danette Maxwell APRN [facility] Non-Inv Card Lab Procedures Echocardiogram Transthoracic(Leb) [facility] [place] [address] [place] [address] Referral ID Status Reason Start Date Expiration Date Visits V isits Requested Authorized [id number] Closed Specialty 07/17/2019 09/14/2019 1 1 Service Requested Encounter Details Date Type Department Care Team Description 01/16/2019 Office Visit Cardiology at [facility] Danette Maxwell, Chronic systolic heart failu re; [facility] STACIE Cardiomyopathy, ischemic; Drive [facility] Hx of thyroid cancer; [place], [place] DR [place] (arteriosclerotic heart disease); [phone] CARDIOLOGY MARIA VICTORIA (obstructive sleep apnea) on CPAP [phone] [place], [place] [address] (Wo rk) Social History Tobacco Use Types [...] K+ 4.6 today 6. Post-op atrial fibrillation [id number] 7 (CHF, HTN, DM, vascular disease, thromboembolism) Amiodarone discontinued Continue coumadin INR managed by PCP. 2.1 today 7. PAD 08/06/2017: Right 1st, 2nd, 3rd toe amputation 08/11/2017: Left??femoral arterial access, RLE??angiogram, Balloon angioplasty of R PT with Eleazar 2.5 x 80 10/25/2017: right popliteal-pedal bypass at [facility] 8. Hypothyrodism S/p thyroidectomy for goiter Continue [...] Vitaliy Nobles MD [facility] CARDIOLOGY [place], [place] 0[address] (Wo rk) 05/28/2022 Appointment Cardiology Zulma Dolan MD [facility] [place], [place] [address] (Wo rk) 05/28/2022 Laboratory Appointment Lab 05/28/2022 Office Visit Cardiology Zulma Dolan MD [facility] [place] [address] [facility] [place] [address] 06/10/2022 Office Visit Dermatology Laura Scherer MD [facility] DR [address]-DERMAT OLOGY [place], [place] [address] (Wo rk) documented as of this encounter Results ECHOCARDIOGRAM COMPLETE W CONTRAST (07/28/2019 8:19 AM EST) athologist Signature EF 40 [facility] Specimen (Source) Anatomical Location Collection Method / Collectio n Time Received Time / Laterality Volume 07/28/2019 Narrative [facility] - 07/28/2019 8:38 AM EST Procedure: ?Transthoracic Echocardiogram Patient: ?NATALYA Mccollum ? (Age): 1945(74y) Med Rec#: ? [id number] ?Sex: ?M ? Site Loc: ? [facility] ?Ht / Wt: ??172(cm)/81(kg) Pt. Loc: ?Echo Lab ?BSA: ?1.94 Study Date: ?? 07/28/2019 ?Pt. Type: Outpatient Tape: ? Referring: MARY ELLEN Reading: Ifeanyi Truong ([id number]) Racing Driver: Fadumo Flanagan RDCS, FASE Diagnosis: *Chronic [...] E-wave Vmax ?1 ?m/sec ? MV deceleration fxsc147.5 ? msec ? MV A-wave Vmax ?1 [...] ? Mid-Inferior ?Hypokinetic ? Mid-Inferoseptal ?Normal ? [facility]-Septal ? Normal ? [facility]-Anterior ? Hypokinetic ? [facility]-Lateral ?Normal ? [facility]-Inferior ? Akinetic ? [facility]-Tip ?Hypokinetic ? This report has been electronically sign ed by: _ Ifeanyi Truong M.D. ? 07/28/2019 0 8:38:01 Images reviewed and interpretation verif ied [facility] Cardiac Ultrasound Laboratory Procedure Note Ifeanyi Truong MD - 07/28/2019Formatt ing of this note might be different from the original. Procedure: Transthoracic Echocardiogram Patient: NATALYA MCBRIDE(Age): [birth year]74y) Med Rec#: [id number] Sex: M Site Loc: [facility] Ht / Wt: 172(cm)/81(kg) Pt. Loc: Echo Lab BSA: 1.94 Study Date: 07/28/2019 Pt. Type: Outpati ent Tape: Referring: MARY ELLEN Reading: Ifeanyi Truong ([id number]) Racing Driver: Fadumo Flanagan RDCS, REGINA Diagnosis: *Chronic [...] MV E-wave Vmax 1 m/sec MV deceleration ohrg615.5 msec MV A-wave Vmax 1 m/sec MV [...] Normal Mid-Posterolateral Normal Mid-Inferior Hypokinetic Mid-Inferoseptal Normal [facility]-Septal Normal [facility]-Anterior Hypokinetic [facility]-Lateral Normal [facility]-Inferior Akinetic [facility]-Tip Hypokinetic This report has been electronically sign ed by: _ Ifeanyi Truong M.D. 07/28/2019 08:38:0 1 Images reviewed and interpretation verif ied [facility] Cardiac Ultrasound Laboratory Danette Maxwell APRN ECHO ORDERABLES Performing Organization Address City/State/ZIP Code Phon e Number [facility] (ABNORMAL) Basic Metabolic Panel (non-fasting) (01/16/2019 7:49 AM EDT) P athologist Signature Glucose Lvl 105 65 - 199 [facility] mg/[facility] Comment: Diabetes: >=200 mg/dL plus symp toms BUN 25 (H) 10 - 20 mg/dL [facility] Creatinine 1.08 0.80 - 1.50 mg/dL [facility] Sodium 145 135 - 145 mmol/L [facility] [...] of body mass or the acutely ill. http://[employer]/DHMCnkf eGFR 79 >=60 mL/min/1.73 m?? [facility] Comment: The eGFR was calculated using the CKD-EP I equation. As with all creatinine based estimates of kidney function, eGFR values calculated with the CKD-EPI equation are not accurate in patients wi th acute kidney failure, extremes of body mass or the acutely ill. http://[employer]/DHMCnkf Specimen Anatomical Collection Method Collection Time Receive d Time (Source) Location / / Volume Laterality Blood specimen 01/16/2019 7:49 AM 019 7:55 (specimen) EDT AM EDT Resulting Agency Comment Spec In Lab Danette Maxwell APRN CHEMISTRY ORDERABLES Performing Organization Address City/State/ZIP [place] [address] (ABNORMAL) pro-Brain Natriuretic Peptide (01/16/2019 7:49 AM EDT) P athologist Signature ProBNP 780 (H) <=125 pg/mL [facility] Specimen Anatomical Collection Method Collection Time Receive d Time (Source) Location / / Volume Laterality Blood specimen 01/16/2019 7:49 AM 019 7:55 (specimen) EDT AM EDT Resulting Agency Comment Spec In Lab Danette Maxwell APRN CHEMISTRY ORDERABLES Performing Organization Address City/State/Z[place] [address] documented in this encounter Visit Diagnoses Diagnosis Chronic systolic heart failure Cardiomyopathy, ischemic Other specified forms of chronic ischemi c heart disease Hx of thyroid cancer Personal history of malignant neoplasm o f thyroid ASHD (arteriosclerotic heart disease) Coronary atherosclerosis of unspecified type of vessel, three affiliated or graft MARIA VICTORIA (obstructive sleep apnea) on CPAP Obstructive sleep apnea (adult) (pediatr ic) Chronic systolic heart failure documented in this encounter Care Teams Die Machine Operator Relationship Specialty Start Date End Date Lovely Vicente MD PCP - General 04/16/[address] [place] [address] [address] [place] [address] documented as of this encounter
--- OUTSIDE RECORDS SUMMARY | 2022-03-16 08:15 | XMS_ITS | Encounter Summary ---
:1945 Author Organization [facility] [place] [address] Care Team Providers Name Role Phone Lovely Vicente MD Primary Care Provider Encounter Details Date Type Department Care Team Description 04/16/2021 Laboratory Appointment Lab 3L [facility] [place] [phone] Social History Tobacco Use Types Packs/Day Years [...] MD [facility] DR TADEO [place], [place] [address] (Wo rk) 05/28/2022 Appointment Cardiology Zulma Dolan MD [facility] Dr [place] 0[address] (Wo rk) 05/28/2022 Laboratory Appointment Lab 05/28/2022 Office Visit Cardiology Zulma Dolan MD [facility] [place] [address] Liz Poole PA [facility] [place] [address] 06/10/2022 Office Visit Dermatology Laura Scherer MD [facility] ER DR [address]-DERMAT [place]LOG[place], [place] 0375 (Wo rk) documented as of [...] Organization Address City/State/[place] [address] (ABNORMAL) Basic Metabolic Panel (non-fasting) (04/16/2021 9:58 AM EDT) athologist Signature Glucose Lvl 77 65 - 199 [facility] mg/dL [facility] Comment: Diabetes: >=200 mg/dL plus symp toms BUN 23 (H) 10 - 20 mg/dL [facility] Creatinine 1.26 0.80 - 1.50 mg/dL [facility] [...] Organization Address City/State/[place] [address] documented in this encounter Visit Diagnoses Diagnosis Chronic systolic heart failure documented in this encounter Care Teams Ocean Export Agent Relationship Specialty Start Date End Date Lovely Vicente MD PCP - General 04/16/[address] [place] [address] documented as of this encounter
--- OUTSIDE RECORDS SUMMARY | 2022-03-16 08:15 | XMS_ITS | Encounter Summary ---
:1945 Author Organization [facility] [place] [address] Care Team Providers Name Role Phone Lovely Vicente MD Primary Care Provider Encounter Details Date Type Department Care Team Description 08/15/2018 Laboratory Lab 3L Barbara Chronic systoli c heart failure; Appointment [facility] ASCVD (ar teriosclerotic cardiovascular disease) [place] [phone] Social History Tobacco Use Types Packs/Day Years [...] Vitaliy Nobles MD [facility] [address] CARLYLE [place], [place] 0[address] (Wo rk) 05/28/2022 Appointment Cardiology Zulma Dolan MD [facility] [address] [place], [place] [address] (Wo rk) 05/28/2022 Laboratory Appointment Lab 05/28/2022 Office Visit Cardiology Zulma Dolan MD [facility] [place] [address] Liz Poole PA [facility] [place] [address] 06/10/2022 Office Visit Dermatology Laura Scherer MD [facility] ER DR [address] RD-DERMAT [facility] [place] [address] (Wo rk) documented as of [...] Signature Glucose Lvl 116 65 - 199 [facility] mg/dL [facility] Comment: [...] of body mass or the acutely ill. http://Cenoplex/[facility]ID[facility] eGFR 79 >=60 mL/min/1.73 m?? [facility] Comment: The eGFR was calculated using the CKD-EP I equation. As with all creatinine based estimates of kidney function, eGFR values calculated with the CKD-EPI equation are not accurate in patients wi th acute kidney failure, extremes of body mass or the acutely ill. http://Cenoplex/[facility] Specimen Anatomical Collection Method Collection Time Receive d Time (Source) Location / / Volume Laterality Blood specimen 08/15/2018 8:04 AM 019 8:20 (specimen) EST AM EST Resulting Agency Comment Spec In Lab Danette Maxwell APRN CHEMISTRY ORDERABLES Performing Organization Address City/State/[place] [address] Lipid Panel (08/15/2018 8:04 AM EST) athologist Signature Chol, Total 75 mg/dL [facility] Comment: Lower Risk: <200 mg/dL Average Risk: 200-239 mg/dL Higher Risk: >oa=409 mg/dL Triglycerides 185 mg/dL [facility] Comment: Average Risk/Lower Risk: <150 mg/dL Borderline High Risk: 150-199 mg/dL High Risk: 200-499 mg/dL Very High Risk: >mc=617 mg/dL HDL 32 mg/dL [facility] Comment: Males: ?? Higher Risk: <40 mg/dL Females: ?? HIgher Risk: <50 mg/dL LDL Cholesterol 6 mg/dL [facility] Comment: Lowest Risk: <100 mg/dL Lower Risk: 100-129 mg/dL Borderline High Risk: 130-159 mg/dL High Risk: 160-189 mg/dL Very High Risk: >vy=371 mg/dL Chol/HDL Ratio 2.3 ratio [facility] Lipid Interpretation See Note [facility] Comment: Lipid management should be guided by a p atient? s ASCVD risk, goals and preferences. ACC/AHA Guidelines recommend high intens ity statin if clinical ASCVD or LDL greater than or equal to 190 mg/dL. http://SemiNex.com/HUF-NEM-Jwgszcupo Adults aged 40-75 with LDL 70-189 mg/dL should have their 10 year ASCVD risk estimated with the ACC/AHA ASCVD risk es timator http://tools.acc.org/YZFAV-Yuod-Sfvvwwdr r/ Statin should be discussed if risk [...] Organization Address City/State/[place] [address] (ABNORMAL) pro-Brain Natriuretic Peptide (08/15/2018 8:04 AM EST) athologist Signature ProBNP 1,797 (H) <=125 [facility] pg/mL [facility] Specimen Anatomical Collection Method Collection Time Receive d Time (Source) Location / / Volume Laterality Blood specimen 08/15/2018 8:04 AM 019 8:20 (specimen) EST AM EST Resulting Agency Comment Spec In Lab Danettebrock Maxwell STACIE CHEMISTRY ORDERABLES Performing Organization Address City/State/ZIP Code Phon e Number [place] [id number] documented in this encounter Visit Diagnoses Diagnosis Chronic systolic heart failure ASCVD (arteriosclerotic cardiovascular d isease) Unspecified cardiovascular disease documented in this encounter Care Teams Procurement Clerk Relationship Specialty Start Date End Date Lovely Vicente MD PCP - General 04/16/[address] [place] [address] documented as of this encounter
--- OUTSIDE RECORDS SUMMARY | 2022-03-16 08:15 | XMS_ITS | Encounter Summary ---
:1945 Author Organization [facility] [place] [address] Care Team Providers Name Role Phone Lovely Vicente MD Primary Care Provider Reason for Visit Reason Comments Establish Care Atrial Fibrillation Congestive Heart Failure Cardiomyopathy Encounter Details Date Type Department Care Team Description 09/06/2019 [facility] Osvaldo STRANGE [address] [place], [place] CARDIOLOGY DEPT. [address] [place] [address] [phone] Social History Tobacco Use Types Packs/Day Years [...] today For any questions, call my office: [phone] To access your health care information, go to the web at: [email or web address] (you will need to register) For educational materials: [email or web address] Karel TRAMMELL.[facility], Clinical Cardiac Electrophysiology, [facility], [facility] A Healthy Heart: After [...] least 2 servings of fish a week. [place], mackerel, mcfadden, sardines, and chunk light [...] irregular heartbeat. After you call 911, the utility systems repairer operator may tell you to chew 1 [...] more? Visit our health information library at [email or web address].[email or web address] [email or web address] [email or web address] [email or web address]. You can also view health information on Prom[employer]Jam, your personal patient account. Log in or sign up today. Enter F075 in the search box to learn more about A Healthy Heart: After Your Visit. ?? [phone] [employer] documented in this encounter Progress Notes Karel Gonzalez MD - 09/06/2019 2:20 PM EST Images from the original note were not included. Section of Cardiology/Cardiac Electrophysiology [facility] Clinical Cardiac Electrophysiology Consult Patient ID Don Fatima 1945 [id number] Don Fatima is referred to the EP clinic by Danette Maxwell APRN PhD Chief Complaint Dyspnea on exertion Ischemic cardiomyopathy History This is a 74 y.o. male following up/being seen in clinic for evaluation for ongoing anticoagulation. He has a Nzrwv7Ymhs score of ~ 6-7. 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, can walk [...] reviewed the ECG: sinus rhythm, 72 bpm, PA 140 ms, QRS 100 ms, QT 400 [...] EP clinic KAREL GONZALEZ MD Cardiac Electrophysiology [facility] T: [phone] F: [phone] 35 minutes of this 40 minute encounter were spent in counselling, as described above Cc: MD Danette Cr APRN PhD Janett Espino DPM documented in this encounter Plan of Treatment Upcoming Encounters Date Type Specialty Care Team Description 03/26/2022 Office Visit Cardiology Vitaliy Nobles MD [facility] [address] T[address] [place], [place] [address] (Wo rk) 05/28/2022 Appointment Cardiology Zulma Dolan MD [facility] [place], [place] [address] (Wo rk) 05/28/2022 Laboratory Appointment Lab 05/28/2022 Office Visit Cardiology Zulma Dolan MD [facility] [place] [address] Liz Poole PA [facility] [place] [address] 06/10/2022 Office Visit Dermatology Laura Scherer MD [facility] DR [address]-DERMAT OLOGY [place], [place] 0[address] (Wo rk) documented as of [...] 446 ms MUSE SYSTEM (Bezet) Calculated P [place] 37 degrees MUSE SYSTEM Calculated R [place] -23 degrees MUSE SYSTEM Calculated T [place] 116 degrees MUSE SYSTEM INTERPRETATION Normal sinus rhythm MUSE SYSTEM Inferior infarct (cited on or before 25-JAN-2013) ST & T wave abnormality, consider anterolateral ischemia Abnormal ECG When compared with ECG of 19-AUG-2017 10:23, No significant change was found Confirmed by MD Castellon Daniel ([id number]) on 09/08/2019 10:22:4 7 AM Specimen Anatomical [...] disease documented in this encounter Care Teams Audio Operator Relationship Specialty Start Date End Date Lovely Vicente MD PCP - General 04/16/[address] [place] [address] documented as of this encounter
--- OUTSIDE RECORDS SUMMARY | 2022-03-16 08:15 | XMS_ITS | Encounter Summary ---
:1945 Author Organization [facility] [place] [address] Care Team Providers Name Role Phone Lovely Vicente MD Primary Care Provider Reason for Visit Reason Onset Date Comments Other 03/24/2019 cardiac clearance ne eded Encounter Details Date Type Department Care Team Description 03/24/2019 Telephone Cardiology at [facility] Danette Maxwell, Other (cardiac [facility] TECHNICAL WRITING LEAD/MGR clearance needed) [place] [address] CARDIOLOGY [place], [place] 0[address] (Wo rk) Social History Tobacco [...] AM EDT Leonela from [facility] [place] called requesting cardiac clearance for this patient who is to have a colonoscopy on 04/04/19. He is on anticoagulation and they will need to bridge him. Their phone # [phone], fax# [phone]. Thank you. documented in this encounter Plan of Treatment Upcoming Encounters Date Type Specialty Care Team Description 03/26/2022 Office Visit Cardiology Vitaliy Nobles MD [facility] DR TADE[address] [place], [place] 0[address] (Wo rk) 05/28/2022 Appointment Cardiology Zulma Dolan MD [facility] [place], [place] [address] (Wo rk) 05/28/2022 Laboratory Appointment Lab 05/28/2022 Office Visit Cardiology Zulma Dolan MD [facility] [place] [address] Liz Poole PA [facility] [place] [address] 06/10/2022 Office Visit Dermatology Laura Scherer MD [facility] DR [address]-DERMAT [place], [place] 0375 (Wo rk) documented as of this encounter Visit Diagnoses Not on filedocumented in this encounter Care Teams Blister Rust Eradicator Relationship Specialty Start Date End Date Lovely Vicente MD PCP - General 04/16/[address] [place] [address] documented as of this encounter
--- OUTSIDE RECORDS SUMMARY | 2022-03-16 08:15 | XMS_ITS | Encounter Summary ---
:1945 Author Organization [facility] [place] [address] Care Team Providers Name Role Phone Lovely Vicente MD Primary Care Provider Reason for Referral Diagnostic Test (Routine) - Specialty Diagnoses / Procedures Referred By Contact Refer red To Contact Cardiology Diagnoses Chronic systolic heart failure Danette Maxwell APRN [facility] Non-Inv Card Lab Procedures Echocardiogram Transthoracic(Leb) [facility] [place] [phone] [place] [address] Referral ID Status Reason Start Date Expiration Visits Visits Date Requested Authorized [id number] Specialty 08/15/2018 08/15/2018 1 1 Service Requested Reason for Visit Diagnostic Test (Routine) - Specialty Diagnoses / Procedures Referred By Contact Nawaf owen To Contact Cardiology Diagnoses Chronic systolic heart failure Danette Maxwell APRN [facility] Non-Inv Card Lab Procedures Echocardiogram Transthoracic(Leb) [facility] [place] [address] [place] [address] Referral ID Status Reason Start Date Expiration Visits Visits Date Requested Authorized [id number] Specialty 08/15/2018 08/15/2018 1 1 Service Requested Encounter Details Date Type Department Care Team Description 08/15/2018 Hospital Encounter Non-Invasive Danette Maxwell Chron ic systolic Cardiology Lab Barbara Gomes APRN heart failure [facility] [place] [address] [place] [phone] [address] (Work) [phone] Social History Tobacco Use Types Packs/Day Years [...] Nobles MD [facility] CARDIOLOGY [place], [place] 0375 (Wo rk) 05/28/2022 Appointment Cardiology Zulma Dolan MD [facility] [place], [place] 0[address] (Wo rk) 05/28/2022 Laboratory Appointment Lab 05/28/2022 Office Visit Cardiology Zulma Dolan MD [facility] [place] [address] Liz Poole PA [facility] [place] [address] 06/10/2022 Office Visit Dermatology Laura Scherer MD [facility] DR [address]-DERMAT [place], [place] 0[address] (Wo rk) documented as of [...] Mccollum ? (Age): 1945(73y) Med Rec#: ? [id number] ?Sex: ?M ? Site Loc: ? [facility] ?Ht / Wt: ??172(cm)/81(kg) Pt. Loc: ?Echo Lab ?BSA: ?1.94 Study Date: ?? 08/15/2018 ?Pt. Type: Outpatient Tape: ? Referring: MARY ELLEN Reading: Scott Ortega ([id number]) Plumber Pipe Fitting: Laura Sargent Diagnosis: *Chronic systolic (congestive) heart [...] E-wave Vmax ?1.2 ?m/sec ? MV deceleration uvfn891.4 ? msec ? MV A-wave Vmax ?0.7 [...] ? Mid-Inferior ?Hypokinetic ? Mid-Inferoseptal ?Hypokinetic ? Alden-Septal ? Akinetic ? Alden-Anterior ? Hypokinetic ? Alden-Lateral ?Akinetic ? Alden-Inferior ? Hypokinetic ? Alden-Tip ?Akinetic ? This report has been electronically sign ed by: _ Scott Ortega M.D. ? 08/15/2018 08:17:26 Images reviewed and interpretation verif iewanda [facility] Cardiac Ultrasound Laboratory Procedure Note Scott Ortega MD - 08/15/2018Format ting of this note might be different from the original. Procedure: Transthoracic Echocardiogram Patient: NATALYA MCBRIDE(Age): [birth year]73y) Med Rec#: [id number] Sex: M Site Loc: [facility] Ht / Wt: 172(cm)/81(kg) Pt. Loc: Echo Lab BSA: 1.94 Study Date: 08/15/2018 Pt. Type: Outpati ent Tape: Referring: MARY ELLEN Reading: Scott Ortega ([id number]) Plumber Pipe Fitting: Laura Sargent Diagnosis: *Chronic systolic (congestive) heart [...] MV E-wave Vmax 1.2 m/sec MV deceleration rdmk595.4 msec MV A-wave Vmax 0.7 m/sec MV [...] Akinetic Mid-Posterolateral Akinetic Mid-Inferior Hypokinetic Mid-Inferoseptal Hypokinetic Alden-Septal Akinetic Alden-Anterior Hypokinetic Alden-Lateral Akinetic Ald[place]-Inferior Hypokinetic Ald[place]-Tip Akinetic This report has been electronically sign ed by: _ Scott Ortega M.D. 08/15/2018 08:17: 26 Images reviewed and interpretation [facility] Cardiac Ultrasound Laboratory Danette Maxwell STACIE ECHO [...] Routine documented in this encounter Care Teams Wild Life Photographer Relationship Specialty Start Date End Date Lovely Vicente MD PCP - General 04/16/[address] [place] [address] documented as of this encounter
--- OUTSIDE RECORDS SUMMARY | 2022-03-16 08:15 | XMS_ITS | Encounter Summary ---
:1945 Author Organization [place] [address] Care Team Providers Name Role Phone Lovely Vicente MD Primary Care Provider Reason for Visit Reason Comments Skin Check Encounter Details Date Type Department Care Team Description 07/06/2018 Office Visit Dermatology at [facility], Rigoberto Yarbrough (actinic keratosis); MD SHAY Quick III (seborrheic keratosis); [address] [facility] History of melanoma; [place] [address] Skin exam for malignant neoplasm [phone] [facility] [place], [place] [address] Social History Tobacco Use Types [...] had vascular surgery in [facility] while he lost several toes, they [...] Vitaliy Nobles MD [facility] [address] TADE[address] [place], [place] 0[address] (Wo rk) 05/28/2022 Appointment Cardiology Zulma Dolan MD [facility] Dr [place], [place] [address] (Wo rk) 05/28/2022 Laboratory Appointment Lab 05/28/2022 Office Visit Cardiology Zulam Dolan MD [facility] [place] [address] Liz Poole PA [facility] [place] [address] 06/10/2022 Office Visit Dermatology Laura Scherer MD [facility] DR TEJA GR-DERMAT [place], [place] 0375 (Wo rk) documented as of this encounter Visit Diagnoses Diagnosis AK (actinic keratosis) Actinic keratosis SK (seborrheic keratosis) Other seborrheic keratosis History of melanoma Personal history of malignant melanoma o f skin Skin exam for malignant neoplasm Screening for malignant neoplasm of the skin documented in this encounter Care Teams Assembly Lead Person Relationship Specialty Start Date End Date Lovely Vicente MD PCP - General 04/16/[address] [place] [address] documented as of this encounter
--- OUTSIDE RECORDS SUMMARY | 2022-03-16 08:15 | XMS_ITS | Encounter Summary ---
:1945 Author Organization [facility] [place] [address] Care Team Providers Name Role Phone Lovely Vicente MD Primary Care Provider Reason for Visit Reason Onset Date Comments Follow-up 07/13/2018 amiodarone discontin ued Encounter Details Date Type Department Care Team Description 07/13/2018 Telephone Cardiology at [facility] Martha Comer, Follow-up (amiodarone [facility] RN discontin ued) [place] [address] Social History Tobacco Use Types Packs/Day [...] RN - 07/13/2018 8:57 AM EST Per LICENSED NUCLEAR OPERATOR Hans call placed to the home [...] with any questions. Call placed to the [facility] in [place] to discontinue it there as well. Med list updated. documented in this encounter Plan of Treatment Upcoming Encounters Date Type Specialty Care Team Description 03/26/2022 Office Visit Cardiology Vitaliy Nobles MD [facility] [address] TADE[address] [place], [place] 0[address] (Wo rk) 05/28/2022 Appointment Cardiology Zulma Dolan MD [facility] [place], [place] 0[address] (Wo rk) 05/28/2022 Laboratory Appointment Lab 05/28/2022 Office Visit Cardiology Zulma Dolan MD [facility] [place] [address] Liz Poole PA [facility] [place] [address] 06/10/2022 Office Visit Dermatology Laura Scherer MD [facility] [address] TE[address] GR-DERMAT [place], [place] 0375 (Wo rk) documented as of this encounter Visit Diagnoses Not on filedocumented in this encounter Care Teams Manager Ambulatory Relationship Specialty Start Date End Date Lovely Vicente MD PCP - General 04/16/[address] [place] [address] documented as of this encounter
--- OUTSIDE RECORDS SUMMARY | 2022-03-16 08:15 | XMS_ITS | Encounter Summary ---
:1945 [place] [address] Care Team Providers Name Role Phone Lovely Vicente MD Primary Care Provider Encounter Details Date Type Department Care Team Description 08/15/2018 Laboratory Appointment Lab 3L [facility] [place] [address] Social History Tobacco Use Types Packs/Day [...] MD [facility] DR [place]LE [place], [place] [address] (Wo rk) 05/28/2022 Appointment Cardiology Zulma Dolan MD [facility] [address] [place] [address] (Wo rk) 05/28/2022 Laboratory Appointment Lab 05/28/2022 Office Visit Cardiology Zulma Dolan MD [facility] [place] [address] Liz Poole PA [facility] [place] [address] 06/10/2022 Office Visit Dermatology Laura Scherer MD [facility] ER DR [address]-DERMAT [place], [place] 0[address] (Wo rk) documented [...] 12.5 [facility] LABORATORY INR 2.1 [facility] Comment: An [...] Organization Address City/State/[place] [address] documented in this encounter Visit Diagnoses Not on filedocumented in this encounter Care Teams Senior Program Manager Relationship Specialty Start Date End Date Lovely Vicente MD PCP - General 04/16/[address] [place] [address] documented as of this encounter
--- OUTSIDE RECORDS SUMMARY | 2022-03-16 08:15 | XMS_ITS | Encounter Summary ---
:1945 [place] [address] Care Team Providers Name Role Phone Lvoely Vicente MD Primary Care Provider Encounter Details Date Type Department Care Team Description 03/20/2021 Telephone Neurology at [facility] Hugo Gaston MD [facility] [place] [address] [place] [address] [phone] (Wo rk) Social History Tobacco Use Types [...] - 03/20/2021 6:03 PM EDT Call from [facility]. 76 M with h/o DM. [...] Gaston MD Department of Neurology Pager # [phone] documented in this encounter Plan of Treatment Upcoming Encounters Date Type Specialty Care Team Description 03/26/2022 Office Visit Cardiology Vitaliy Nobles MD [facility] [address] TADE[address] [place], [place] [address] (Wo rk) 05/28/2022 Appointment Cardiology Zulma Dolan MD [facility] [address] [place], [place] [address] (Wo rk) 05/28/2022 Laboratory Appointment Lab 05/28/2022 Office Visit Cardiology Zulma Dolan MD [facility] [place] [address] Liz Poole PA [facility] [place] [address] 06/10/2022 Office Visit Dermatology Laura Scherer MD [facility] DR TEJA GR-DERMAT [place], [place] [address] (Wo rk) documented as of this encounter Visit Diagnoses Not on filedocumented in this encounter Care Teams Log Data Technician Relationship Specialty Start Date End Date Lovely Vicente MD PCP - General 04/16/[address] [place] [address] documented as of this encounter
--- OUTSIDE RECORDS SUMMARY | 2022-03-16 08:15 | XMS_ITS | Encounter Summary ---
:1945 Author Organization [facility] Address [facility] [place] [address] Care Team Providers Name Role Phone Lovely Vicente MD Primary Care Provider Reason for Referral Diagnostic Test (Routine) - Specialty Diagnoses / Procedures Referred By Contact Refer red To Contact Cardiology Diagnoses Chronic systolic heart failure Danette Maxwell APRN [facility] Non-Inv Card Lab Procedures Echocardiogram Transthoracic(Leb) [facility] [place] [address] [place] [address] Referral ID Status Reason Start Date Expiration Visits Visits Date Requested Authorized [id number] Specialty 08/15/2018 08/15/2018 1 1 Service Requested Encounter Details Date Type Department Care Team Description 04/18/2018 Office Visit Cardiology at [facility] Danette Maxwell Chronic systolic heart failu re; [facility] STACIE Gomes On amiodarone therapy; [facility] Ischemic cardiomyopathy; [place], [place] DR ONOFRE (arteriosclerotic cardiovascular d isease) [phone] CARDIOLOGY [phone] [place], [place] [address] Social History Tobacco Use Types Packs/Day Years [...] in this encounter Progress Notes Danette Maxwell, TRANSITIONAL CARE NURSE - 04/18/2018 10:40 AM EDT ID and [...] right popliteal-pedal bypass at [facility] ? Plan: 1. A review [...] Nobles MD [facility] CARDIOLOGY [place], [place] [address] (Wo rk) 05/28/2022 Appointment Cardiology Zulma Dolan MD [facility] [place], [place] [address] (Wo rk) 05/28/2022 Laboratory Appointment Lab 05/28/2022 Office Visit Cardiology Zulma Dolan MD [facility] [place] [address] Liz Poole PA [facility] [place] [address] 06/10/2022 Office Visit Dermatology Laura Scherer MD [facility] [address]-DERMAT OGY [place], [place] [address] (Wo rk) documented as of this encounter Results ECHOCARDIOGRAM COMPLETE W CONTRAST (08/15/2018 7:55 AM EST) P athologist Signature EF 35 HEARTTop Hand Rodeo Tour SYSTEM Specimen (Source) Anatomical Location Collection Method / Collectio n Time Received Time / Laterality Volume 08/15/2018 Narrative HEARTLAB SYSTEM - 08/15/2018 8:18 AM EST Procedure: ?Transthoracic Echocardiogram Patient: ?NATALYA JENKINS E ? (Age): 1945(73y) Med Rec#: ? [id number] ?Sex: ?M ? Site Loc: ? [facility] ?Ht / Wt: ??172(cm)/81(kg) Pt. Loc: ?Echo Lab ?BSA: ?1.94 Study Date: ?? 08/15/2018 ?Pt. Type: Outpatient Tape: ? Referring: MARY ELLEN Reading: Scott Ortega ([id number]) Process Control Engineer: Laura Sargent Diagnosis: *Chronic systolic (congestive) heart [...] E-wave Vmax ?1.2 ?m/sec ? MV deceleration qjwy151.4 ? msec ? MV A-wave Vmax ?0.7 [...] ? Mid-Inferior ?Hypokinetic ? Mid-Inferoseptal ?Hypokinetic ? Madison-Septal ? Akinetic ? Madison-Anterior ? Hypokinetic ? Madison-Lateral ?Akinetic ? Madison-Inferior ? Hypokinetic ? Madison-Tip ?Akinetic ? This report has been electronically sign ed by: _ Scott Ortega M.D. ? 08/15/2018 08:17:26 Images reviewed and interpretation verif ied [facility] Cardiac Ultrasound Laboratory Procedure Note Scott Ortega MD - 08/15/2018Format ting of this note might be different from the original. Procedure: Transthoracic Echocardiogram Patient: NATALYA MCBRIDE(Age): [birth year]73y) Med Rec#: [id number] Sex: M Site Loc: [facility] Ht / Wt: 172(cm)/81(kg) Pt. Loc: Echo Lab BSA: 1.94 Study Date: 08/15/2018 Pt. Type: Outpati ent Tape: Referring: MARY ELLEN Reading: Scott Ortega ([id number]) Process Control Engineer: Laura Sargent Diagnosis: *Chronic systolic (congestive) heart [...] MV E-wave Vmax 1.2 m/sec MV deceleration nfhu790.4 msec MV A-wave Vmax 0.7 m/sec MV [...] Akinetic Mid-Posterolateral Akinetic Mid-Inferior Hypokinetic Mid-Inferoseptal Hypokinetic Madison-Septal Akinetic Madison-Anterior Hypokinetic Madison-Lateral Akinetic Madison-Inferior Hypokinetic Madison-Tip Akinetic This report has been electronically sign ed by: _ Scott Ortega M.D. 08/15/2018 08:17: 26 Images reviewed and interpretation elvie hwang [facility] Cardiac Ultrasound Laboratory Danette Maxwell APRN ECHO ORDERABLES Performing Organization Address City/State/ZIP Code Phon e Number HEARTLAB SYSTEM (ABNORMAL) Basic Metabolic Panel (non-fasting) (04/18/2018 9:19 AM EDT) P athologist Signature Glucose Lvl 167 65 - 199 [facility] mg/dL [facility] LABOR[facility]ORY Comment: Diabetes: >=200 mg/dL [...] of body mass or the acutely ill. http://Unipower Battery/[facility]MANnkf eGFR 70 >=60 mL/min/1.73 m?? [facility] LABORATORY Comment: The eGFR was calculated using the CKD-EP I equation. As with all creatinine based estimates of kidney function, eGFR values calculated with the CKD-EPI equation are not accurate in patients wi th acute kidney failure, extremes of body mass or the acutely ill. http://Unip[employer] Battery/[facility] NORMANnkf Specimen Anatomical Collection Method Collection Time Receive d Time (Source) Location / / Volume Laterality Blood specimen 04/18/2018 9:19 AM 018 9:34 (specimen) EDT AM EDT Resulting Agency Comment Spec In Lab Danette Maxwell APRN CHEMISTRY ORDERABLES Performing Organization Address City/State/ZIP Code Phon e Number [address] (ABNORMAL) pro-Brain Natriuretic Peptide (04/18/2018 9:19 AM EDT) P athologist Signature ProBNP 2,199 (H) <=125 [facility] pg/mL [facility] LABOR[facility]ORY Specimen Anatomical Collection Method Collection Time Receive d Time (Source) Location / / Volume Laterality Blood specimen 04/18/2018 9:19 AM 018 9:34 (specimen) EDT AM EDT Resulting Agency Comment Spec In Lab Danette Maxwell APRN CHEMISTRY ORDERABLES Performing Organization Address City/[facility]/[place] [address] documented in this encounter Visit Diagnoses Diagnosis Chronic systolic heart failure On amiodarone therapy Ischemic cardiomyopathy Other specified forms of chronic ischemi c heart disease ASCVD (arteriosclerotic cardiovascular d isease) Unspecified cardiovascular disease Chronic systolic heart failure documented in this encounter Care Teams Grocery Caddy Relationship Specialty Start Date End Date Lovely Vicente MD PCP - General 04/16/[address] [place] [address] documented as of this encounter
--- OUTSIDE RECORDS SUMMARY | 2022-03-16 08:15 | XMS_ITS | Encounter Summary ---
:1945 Author Organization [facility] [place] [address] Care Team Providers Name Role Phone Lovely Vicente MD Primary Care Provider Reason for Visit Reason Onset Date Comments Other 11/11/2017 Please call [facility] Encounter Details Date Type Department Care Team Description 11/11/2017 Telephone Cardiology at [facility] Danette Maxwell, Other (Please call [facility] ON AIR HOST [facility] ) [place] [address] CARDIOLOGY [place], [place] [address] (Wo rk) Social History Tobacco [...] Nobles MD [facility] DR TADE[address] [place], [place] [address] (Wo rk) 05/28/2022 Appointment Cardiology Zulma Dolan MD [facility] [place], [place] [address] (Wo rk) 05/28/2022 Laboratory Appointment Lab 05/28/2022 Office Visit Cardiology Zulma Dolan MD [facility] [place] [address] Liz Poole PA [facility] [place] [address] 06/10/2022 Office Visit Dermatology Laura Scherer MD [facility] DR TE[address]DERMAT [place], [place] 0[address] (Wo rk) documented as of this encounter Visit Diagnoses Not on filedocumented in this encounter Care Teams Financial Services Manager Relationship Specialty Start Date End Date Lovely Vicente MD PCP - General 04/16/[address] [place] [address] documented as of this encounter
--- OUTSIDE RECORDS SUMMARY | 2022-03-16 08:15 | XMS_ITS | Encounter Summary ---
:1945 [place] [address] Care Team Providers Name Role Phone Lovely Vicente MD Primary Care Provider Reason for Visit Reason Comments Skin Cancer Examination Encounter Details Date Type Department Care Team Description 03/20/2021 Office Visit Dermatology at [facility] Brennen Rene MD History of melanoma; [facility] History of dysplastic nevus; [address] Multiple benign nevi; [place] [address] [facility] SK (seborrheic keratosis); [phone] [address]MATOLOGY [place] (actinic keratosis) [place], [place] [address] Social History Tobacco Use [...] no SOCIAL HISTORY 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 Last visit at [facility] Derm: 01/02/2020 Medications: Reviewed in eD-H [...] of Melanoma []Note routed to medical secretary receptionist [x]Recall has been placed in scheduling system [...] Nobles MD [facility] CARDIOLOGY [place], [place] 0[address] (Wo rk) 05/28/2022 Appointment Cardiology Zulma Dolan MD [facility] [place], [place] [address] (Wo rk) 05/28/2022 Laboratory Appointment Lab 05/28/2022 Office Visit Cardiology Zulma Dolan MD [facility] [place] [address] Liz Poole PA [facility] [place] [address] 06/10/2022 Office Visit Dermatology Laura Rene MD [facility] DR TE[address] GR-DERMAT [place] [address] (Wo rk) documented as [...] keratosis documented in this encounter Care Teams Garden Implement Mechanic Relationship Specialty Start Date End Date Lovely Vicente MD PCP - General 04/16/15 [facility] [address] [place] [address] documented as of this encounter
--- OUTSIDE RECORDS SUMMARY | 2022-03-16 08:15 | XMS_ITS | Encounter Summary ---
:1945 Author Organization [facility] [place] [address] Care Team Providers Name Role Phone Lovely Vicente MD Primary Care Provider Encounter Details Date Type Department Care Team Description 11/29/2017 Hospital Encounter Vascular Lab at Janett Walter PAD (peripheral [facility], RVT artery [facility]) [place] [phone] Social History Tobacco Use Types Packs/Day Years [...] MD [facility] DR TADEO [place], [place] 0[address] (Wo rk) 05/28/2022 Appointment Cardiology Zulma Dolan MD [facility] [place], [place] [address] (Wo rk) 05/28/2022 Laboratory Appointment Lab 05/28/2022 Office Visit Cardiology Zulma Dolan MD [facility] [place] [address] Liz Poole PA [facility] [place] [address] 06/10/2022 Office Visit Dermatology Laura Scherer MD [facility] DR TEJA GR-DERMAT [place], [place] [address] (Wo rk) documented as of this encounter Procedures Procedure Name Priority Date/Time Associated Diagnosis Comme nts ARTERIAL DUPLEX LEG Routine 11/29/2017 10:32 AM PAD (periphera l Results for this UNILA EDT artery disease) procedure ar e in the results section. documented in this encounter Results Arterial Duplex Leg, Unil (11/29/2017 10:32 AM EDT) Component Value Ref Test Analysis Performed At [facility] Range Method Time Signature VB Text Department: Vascular Surgery Lab VASCUBASE Report Patient: [id number] (GREGORY HOANG) CPT: 46844 ICD10: I72.4;I73.9 Referring Physician: ANNETTE MAXWELL ?? [...] Laterality 11/29/2017 10:32 AM EDT Annette Maxwell VISUAL SPECIALIST VASCULAR ORDERABLES Performing Organization Address City/State/ZIP Code Phon e Number VASCU[facility] documented in this encounter Visit Diagnoses Diagnosis PAD (peripheral artery disease) Peripheral vascular disease, unspecified documented in this encounter Care Teams Ophthalmic Medical Assistant Relationship Specialty Start Date End Date Lovely Vicente MD PCP - General 04/16/[address] [place] [address] documented as of this encounter
--- OUTSIDE RECORDS SUMMARY | 2022-03-16 08:15 | XMS_ITS | Encounter Summary ---
:1945 Author Organization [place] [address] Care Team Providers Name Role Phone Lovely Vicente MD Primary Care Provider Encounter Details Date Type Department Care Team Description 07/28/2019 Office Visit Cardiology at [facility] [place] Danette Maxwell Chronic systolic heart failu re; [facility] A, STACIE ASHD (arteriosclerotic heart disease); Drive [facility] S/P CABG x 3; [place], [place] MARIA VICTORIA (obstructive sleep apnea) on CPAP; [phone] CARDIOLOGY Mixed hyperlipidemia [phone] [place], [place] [address] Social History Tobacco Use Types [...] in this encounter Progress Notes Danette Maxwell, CATERING COOK - 07/28/2019 9:40 AM EST Images from [...] regurgitation present. 07/07/2019 - 07/21/2019 Zio Patch [place] The patient had a minimum heart rate [...] K+ 4.5 today 6. Post-op atrial fibrillation [id number] (CHF, HTN, DM, vascular disease, thromboembolism) [...] advised: Refer to EP (Dr. Mcelroy in [place]) 5. Heart Failure Clinic follow up scheduled for: 3 months with proBNP and BMP Danette Maxwell APRN 07/28/2019 documented in this encounter Plan of Treatment Upcoming Encounters Date Type Specialty Care Team Description 03/26/2022 Office Visit Cardiology Vitaliy Nobles MD [facility] DR TADE[address] [place], [place] 0[address] (Wo rk) 05/28/2022 Appointment Cardiology Zulma Dolan MD [facility] Dr [place], [place] [address] (Wo rk) 05/28/2022 Laboratory Appointment Lab 05/28/2022 Office Visit Cardiology Zulma Dolan MD [facility] [place] [address] Liz Poole PA [facility] [place] [address] 06/10/2022 Office Visit Dermatology Laura Scherer MD [facility] DR [address]-DERMAT [place], [place] 0[address] (Wo rk) documented as of this encounter Results (ABNORMAL) Basic Metabolic Panel (non-fasting) (07/28/2019 8:36 AM EST) P athologist Signature Glucose Lvl 153 65 - 199 [facility] mg/dL [facility] Comment: Diabetes: >=200 mg/dL plus symp toms BUN 22 (H) 10 - 20 mg/dL [facility] [...] LABORATORY Estimated GFR 70 >=60 mL/min/1.73 m?? [facility] LABORATORY Comment: The eGFR was calculated using the CKD-EP I equation. As with all creatinine based estimates of kidney function, eGFR values calculated with the CKD-EPI equation are not accurate in patients wi th acute kidney failure, extremes of body mass or the acutely ill. http://CSID/Fly Mediankf eGFR 81 >=60 mL/min/1.73 m?? [facility] LABOR[facility]ORY Comment: The eGFR was calculated using the CKD-EP I equation. As with all creatinine based estimates of kidney function, eGFR values calculated with the CKD-EPI equation are not accurate in patients wi th acute kidney failure, extremes of body mass or the acutely ill. http://CSID/DHnkf Specimen Anatomical Collection Method Collection Time Receive d Time (Source) Location / / Volume Laterality Blood specimen 07/28/2019 8:36 AM 020 8:46 (specimen) EST AM EST Resulting Agency Comment Spec In Lab Danette Maxwell APRN CHEMISTRY ORDERABLES Performing Organization Address City/[facility]/[place]IP [place] [address] (ABNORMAL) pro-Brain Natriuretic Peptide (07/28/2019 8:36 AM EST) P athologist Signature ProBNP 647 (H) <=125 pg/mL [facility] LABOR[facility]ORY Specimen Anatomical Collection Method Collection Time Receive d Time (Source) Location / / Volume Laterality Blood specimen 07/28/2019 8:36 AM 020 8:46 (specimen) EST AM EST Resulting Agency Comment Spec In Lab Danette Maxwell APRN CHEMISTRY ORDERABLES Performing Organization Address City/State/[place] [address] documented in this encounter Visit Diagnoses Diagnosis Chronic systolic heart failure ASHD (arteriosclerotic heart disease) Coronary atherosclerosis of unspecified type of vessel, tolowa dee-ni' or graft S/P CABG x 3 Postsurgical aortocoronary bypass status MARIA VICTORIA (obstructive sleep apnea) on CPAP Obstructive sleep apnea (adult) (pediatr ic) Mixed hyperlipidemia documented in this encounter Care Teams Biomedical Engineering Director Relationship Specialty Start Date End Date Lovely Vicente MD PCP - General 04/16/[address] [place] [address] documented as of this encounter
--- OUTSIDE RECORDS SUMMARY | 2022-03-16 08:15 | XMS_ITS | Encounter Summary ---
:1945 Author Organization [facility] [address] Care Team Providers Name Role Phone Lovely Vicente MD Primary Care Provider Encounter Details Date Type Department Care Team Description 08/26/2018 Transcribe Orders Laboratory Lovely Vicente, Deferred diagnosis [facility] on axis I [address] [address] [place], [place] [phone] [address] Social History Tobacco Use Types Packs/Day Years [...] Nobles MD [facility] DR CARLYLE [place] 0[address] (Wo rk) 05/28/2022 Appointment Cardiology Zulma Dolan MD [facility] [address] [place] 0[address] (Wo rk) 05/28/2022 Laboratory Appointment Lab 05/28/2022 Office Visit Cardiology Zulma Dolan MD [facility] [place] [address] Liz Poole PA [facility] [place] [address] 06/10/2022 Office Visit Dermatology Laura Scherer MD [facility] DR [address]-DERMAT [place], [place] [address] (Wo rk) documented as of this encounter Visit Diagnoses Diagnosis Deferred diagnosis on axis I Other unknown and unspecified cause of m orbidity or mortality documented in this encounter Care Teams Mill Hand Relationship Specialty Start Date End Date Lovely Vicente MD PCP - General 04/16/[address] [place] [address] documented as of this encounter
--- OUTSIDE RECORDS SUMMARY | 2022-03-16 08:15 | XMS_ITS | Encounter Summary ---
:1945 Author Organization [facility] [place] [address] Care Team Providers Name Role Phone Lovely Vicente MD Primary Care Provider Encounter Details Date Type Department Care Team Description 10/07/2017 Laboratory Appointment Lab 3L [facility] [place] [phone] Social History Tobacco Use Types Packs/Day Years [...] [facility] DR CARLYLE [place], [place] [address] (Wo rk) 05/28/2022 Appointment Cardiology Zulma Dolan MD [facility] Dr [place], [place] [address] (Wo rk) 05/28/2022 Laboratory Appointment Lab 05/28/2022 Office Visit Cardiology Zulma Dolan MD [facility] [place] [address] Liz Poole PA [facility] [place] [address] 06/10/2022 Office Visit Dermatology Laura Scherer MD [facility] ER DR [address]-DERMAT [place], [place] 0375 (Wo rk) documented as of [...] Signature Glucose Lvl 99 65 - 199 [facility] mg/dL [facility] LABOR[facility]ORY Comment: Diabetes: >=200 mg/dL plus symp toms BUN 27 (H) 10 - 20 mg/dL [facility] LABOR[facility]ORY Creatinine 1.07 0.80 - 1.50 mg/dL [facility] [...] LABORATORY Estimated GFR >60 >=60 KATALINA Wyatt [facility] Comment: The reported eGFR should be multiplied b y 1.2 for patients. The MDRD is not an appropriate measure o f renal function for patients with body mass extremes or in patients with acute kidney failure. http://Bizzingo/DHnkdep http://Bizzingo/DHMCnkf Specimen Anatomical Collection Method Collection Time Receive d Time (Source) Location / / Volume Laterality Blood specimen 10/07/2017 8:48 AM 018 8:50 (specimen) EDT AM EDT Resulting Agency Comment Spec In Lab Danette Maxwell STACIE CHEMISTRY ORDERABLES Performing Organization Address City/State/[place] [address] (ABNORMAL) pro-Brain Natriuretic Peptide (10/07/2017 8:48 AM EDT) P athologist Signature ProBNP 1,170 (H) <=125 [facility] pg/mL [facility] LABOR[facility]ORY Specimen Anatomical Collection Method Collection Time Receive d Time (Source) Location / / Volume Laterality Blood specimen 10/07/2017 8:48 AM 018 8:50 (specimen) EDT AM EDT Resulting Agency Comment Spec In Lab Danette Maxwell STACIE CHEMISTRY ORDERABLES Performing Organization Address City/State/[place] [address] documented in this encounter Visit Diagnoses Diagnosis Chronic systolic heart failure documented in this encounter Care Teams Spray Crew Relationship Specialty Start Date End Date Lovely Vicente MD PCP - General 04/16/[address] [place] [address] documented as of this encounter
--- OUTSIDE RECORDS SUMMARY | 2022-03-16 08:15 | XMS_ITS | Encounter Summary ---
:1945 Author Organization [facility] [place] [address] Care Team Providers Name Role Phone Lovely Vicente MD Primary Care Provider Reason for Visit Reason Comments Follow-up Skin Check Encounter Details Date Type Department Care Team Description 01/06/2018 Office Visit Dermatology at [facility] Formantipmirna nevi; Abdelrahman HOOPER MD History of melanoma; [address] [facility] [place] [address] [facility] [place], [place] [address] Social History Tobacco Use Types [...] encounter. Rigoberto Garcia MD Section of Dermatology [facility] documented in this encounter Plan of Treatment Upcoming Encounters Date Type Specialty Care Team Description 03/26/2022 Office Visit Cardiology Vitaliy Nobles MD [facility] CARDIOLOGY [place], [place] 0[address] (Wo rk) 05/28/2022 Appointment Cardiology Zulma Dolan MD [facility] [place], [place] [address] (Wo rk) 05/28/2022 Laboratory Appointment Lab 05/28/2022 Office Visit Cardiology Zulma Dolan MD [facility] [place] [address] Liz Poole PA [facility] [place] [address] 06/10/2022 Office Visit Dermatology Laura Scherer MD [facility] DR TEJA GR-DERMAT [place], [place] [address] (Wo rk) documented as of this encounter Visit Diagnoses Diagnosis Multiple nevi Benign neoplasm of skin, site unspecifie d History of melanoma Personal history of malignant melanoma o f skin Seborrheic keratosis Other seborrheic keratosis documented in this encounter Care Teams Chief Technician X Ray Relationship Specialty Start Date End Date Lovely Vicente MD PCP - General 04/16/15 [facility] [address] [place] [address] documented as of this encounter
--- OUTSIDE RECORDS SUMMARY | 2022-03-16 08:15 | XMS_ITS | Encounter Summary ---
:1945 Author Organization [facility] [place] [address] Care Team Providers Name Role Phone Lovely Vicente MD Primary Care Provider Encounter Details Date Type Department Care Team Description 03/20/2021 Ancillary Procedure Radiology Library [place] [address] [place] [address] [phone] Social History Tobacco Use Types Packs/Day Years [...] [facility] [address] TADEO [place], [place] [address] (Wo rk) 05/28/2022 Appointment Cardiology Zulma Dolan MD [facility] [address] [place], [place] [address] (Wo rk) 05/28/2022 Laboratory Appointment Lab 05/28/2022 Office Visit Cardiology Zulma Dolan MD [facility] [place] [address] Liz Poole PA [facility] [place] [address] 06/10/2022 Office Visit Dermatology Laura Scherer MD [facility] DR [address]-DERMAT [place], [place] [address] (Wo rk) documented as of [...] Organization Address City/State/ZIP Code Phon e Number [place], [place] documented in this encounter Visit Diagnoses Not on filedocumented in this encounter Care Teams Garage Mechanic Relationship Specialty Start Date End Date Lovely Vicente MD PCP - General 04/16/[address] [place] [address] documented as of this encounter
--- OUTSIDE RECORDS SUMMARY | 2022-03-16 08:15 | XMS_ITS | Encounter Summary ---
:1945 Author Organization [facility] [place] [address] Care Team Providers Name Role Phone Lovely Vicente MD Primary Care Provider Encounter Details Date Type Department Care Team Description 02/19/2020 Telephone Dermatology at [facility] Ariana Wilder LPN [address] [place] [address] Social History Tobacco Use Types Packs/Day [...] Nobles MD [facility] CARDIOLOGY [place], [place] [address] (Wo rk) 05/28/2022 Appointment Cardiology Zulma Dolan MD [facility] [place], [place] [address] (Wo rk) 05/28/2022 Laboratory Appointment Lab 05/28/2022 Office Visit Cardiology Zulma Dolan MD [facility] [place] [address] Liz Poole PA [facility] [place] [address] 06/10/2022 Office Visit Dermatology Laura Scherer MD [facility] DR TE[address] [place], [place] [address] (Wo rk) documented as of this encounter Visit Diagnoses Not on filedocumented in this encounter Care Teams Seconds Inspector Relationship Specialty Start Date End Date Lovely Vicente MD PCP - General 04/16/[address] [place] [address] documented as of this encounter
--- OUTSIDE RECORDS SUMMARY | 2022-03-16 08:15 | XMS_ITS | Encounter Summary ---
:1945 Author Organization [facility] [place] [address] Care Team Providers Name Role Phone Lovely Vicente MD Primary Care Provider Encounter Details Date Type Department Care Team Description 11/29/2017 Laboratory Lab 3L Barbara Wiseman systoli c congestive heart failure; Appointment [facility] ASCVD (ar teriosclerotic cardiovascular disease); Hospital Cardiomyopathy, [place] [address] Social History Tobacco Use Types [...] MD [facility] [address] TADE[address] [place], [place] [address] (Wo rk) 05/28/2022 Appointment Cardiology Zulma Dolan MD [facility] [address] [place], [place] [address] (Wo rk) 05/28/2022 Laboratory Appointment Lab 05/28/2022 Office Visit Cardiology TrudiZulma Knowles MD [facility] [place] [address] Liz Poole PA [facility] [place] [address] 06/10/2022 Office Visit Dermatology Laura Scherer MD [facility] ER DR [address]-DERMAT OLOGY [place], [place] [address] (Wo rk) documented as of [...] Signature PT 23.0 (H) 9.4 - 12.5 [facility] LABORATORY INR 2.1 [facility] LABORATORY Comment: An [...] Organization Address City/State/[place] [address] (ABNORMAL) Basic Metabolic Panel (non-fasting) (11/29/2017 8:22 AM EDT) P athologist Signature Glucose Lvl 217 (H) 65 - [address] [facility] mg/dL [facility] LABORATORY Comment: Diabetes: >=200 mg/dL plus symp toms BUN 26 (H) 10 - 20 mg/dL [facility] LABORATORY Creatinine 0.96 0.80 - [...] [facility] Estimated GFR >60 >=60 [facility] LABORATORY Comment: The reported eGFR should be multiplied b y 1.2 for patients. The MDRD is not an appropriate measure o f renal function for patients with body mass extremes or in patients with acute kidney failure. [email or web address] Specimen Anatomical Collection Method Collection Time Receive d Time (Source) Location / / Volume Laterality Blood specimen 11/29/2017 8:22 AM 018 8:29 (specimen) EDT AM EDT Resulting Agency Comment Spec In Lab Danette Maxwell FIG CAPRIFIER CHEMISTRY ORDERABLES Performing Organization Address City/State/[place] [address] (ABNORMAL) pro-Brain Natriuretic Peptide (11/29/2017 8:22 AM EDT) P athologist Signature ProBNP 1,769 (H) <=[address] [facility] pg/mL [facility] LABORATORY Specimen Anatomical Collection Method Collection Time Receive d Time (Source) Location / / Volume Laterality Blood specimen 11/29/2017 8:22 AM 018 8:29 (specimen) EDT AM EDT Resulting Agency Comment Spec In Lab Danette Maxwell FIG CAPRIFIER CHEMISTRY ORDERABLES Performing Organization Address City/[facility]/[place] [address] Lavender Tube HOLD (11/29/2017 8:14 AM EDT) Patholo gist Method Time Signature Lavender Hold Sample in [facility]. [facility] LABORATORY Specimen Anatomical Collection Method Collection Time Receive d Time (Source) Location / / Volume Laterality Blood specimen No Charge / 11/29/2017 8:14 AM 018 8:29 (specimen) Unknown EDT AM EDT Lovely Vicente MD HEMATOLOGY ORDERABLES Performing Organization Address City/State/[place] [address] documented in this encounter Visit Diagnoses Diagnosis Chronic systolic congestive heart failur e Chronic systolic heart failure ASCVD (arteriosclerotic cardiovascular d isease) Unspecified cardiovascular disease Cardiomyopathy, ischemic Other specified forms of chronic ischemi c heart disease documented in this encounter Care Teams Material Engineer Relationship Specialty Start Date End Date Lovely Vicente MD PCP - General 04/16/[address] [place] [address] documented as of this encounter
--- OUTSIDE RECORDS SUMMARY | 2022-03-16 08:15 | XMS_ITS | Encounter Summary ---
:1945 Author Organization [facility] Address [address] [place] [address] Care Team Providers Name Role Phone Lovely Vicente MD Primary Care Provider Encounter Details Date Type Department Care Team Description 01/02/2020 Office Visit Dermatology at Rig[facility]to Forman ctinic keratoses; Abdelrahman HOOPER MD History of melanoma; [address] [facility] History of dysplastic nevus; [place] [address] Multiple benign nevi; [phone] [facility] Seborrheic yossi [place]; RD-DERMATOLGY Skin exam for malignant neoplasm [place], [place] [address] Social History Tobacco Use Types [...] encounter. Rigoberto Garcia MD Section of Dermatology [facility] documented in this encounter Plan of Treatment Upcoming Encounters Date Type Specialty Care Team Description 03/26/2022 Office Visit Cardiology Vitaliy Nobles MD [facility] DR [place]LE [place], [place] [address] (Wo rk) 05/28/2022 Appointment Cardiology Zulma Dolan MD [facility] [address] [place], [place] [address] (Wo rk) 05/28/2022 Laboratory Appointment Lab 05/28/2022 Office Visit Cardiology Zulma Dolan [place] [address] Liz Poole PA [facility] [place] [address] 06/10/2022 Office Visit Dermatology Laura Scherer MD [facility] DR TE[address]MAT [place], [place] [...] skin documented in this encounter Care Teams Steam Meter Reader Relationship Specialty Start Date End Date Lovely Vicente MD PCP - General 04/16/[address] [place] [address] [address] [place] [address] documented as of this encounter
--- OUTSIDE RECORDS SUMMARY | 2022-03-16 08:15 | XMS_ITS | Encounter Summary ---
:1945 [place] [address] Care Team Providers Name Role Phone Lovely Vicente MD Primary Care Provider Encounter Details Date Type Department Care Team Description 04/16/2021 Office Visit Cardiology at [facility] Liz Poole, Chronic systolic heart [facility] [place] [place] [address] Cardiology Dept [phone] [place], [place] [address] Social History Tobacco Use Types [...] regurgitation present. 07/07/2019 - 07/21/2019 Zio Patch Avionics Electronics Technician The patient had a minimum heart [...] K+ 5.2 today 6. Post-op atrial fibrillation [id number] (CHF, HTN, DM, vascular disease, thromboembolism) On warfarin - recent labile INR Will discuss with PCP, option of [place] 7. PAD 08/06/2017: Right 1st, 2nd, 3rd toe amputation 08/11/2017: Left??femoral arterial access, RLE??angiogram, Balloon angioplasty of R PT 10/25/2017: right popliteal-pedal bypass at [facility] 8. Hypothyrodism S/p thyroidectomy for [...] Cardiology Vitaliy Nobles MD [facility] CARDIOLOGY [place], [place] [address] (Wo rk) 05/28/2022 Appointment Cardiology Zulma Dolan MD [facility] [place], [place] 0[address] (Wo rk) 05/28/2022 Laboratory Appointment Lab 05/28/2022 Office Visit Cardiology Zulma Dolan MD [facility] [place] [address] Liz Poole PA [facility] [place] [address] 06/10/2022 Office Visit Dermatology Laura Scherer MD [facility] DR TEJA GR-DERMAT OLOGY [place], [place] 0[address] (Wo rk) documented as of this encounter Results (ABNORMAL) Basic Metabolic Panel (non-fasting) (04/16/2021 9:58 AM EDT) athologist Signature Glucose Lvl 77 65 - 199 [facility] mg/dL [facility] LABORATORY Comment: Diabetes: >=200 mg/dL plus symp toms BUN 23 (H) 10 - 20 mg/dL [facility] LABORATORY Creatinine 1.26 0.80 - 1.50 mg/dL [facility] LABORATORY Sodium 140 135 - 145 mmol/L [facility] LABORATORY Potassium 5.2 (H) 3.5 - 5.0 mmol/L [facility] LABORATORY Comment: Please note: ??Patients with WBC >100,00 0 may have falsely elevated Potassium levels. ??For accurate Potassium quantif ication in these patients send serum separator tube (gold top) for subsequent determinations. ??Contact the Clinical Chemistry Laboratory if there are any qu estions. Chloride 103 98 - 107 mmol/L [facility] LABORATORY CO2 28 22 - 31 mmol/L [facility]OR[facility] Anion Gap 9 5 - 15 mmol/L [facility] Calcium 9.3 8.5 - 10.5 mg/dL [facility]OR[facility] Estimated GFR 55 (L) >=60 mL/min/1.73 m?? [facility] LABOR[facility] Comment: This patient? [...] Organization Address City/State/[place] [address] (ABNORMAL) pro-Brain Natriuretic Peptide (04/16/2021 9:58 AM EDT) P athologist Signature ProBNP 523 (H) <=124 pg/mL [facility] LABORATORY Specimen Anatomical Collection Method Collection Time Receive d Time (Source) Location / / Volume Laterality Blood 04/16/2021 9:58 AM EDT 10:02 AM EDT Resulting Agency Comment Spec In Lab Zulma Plunkett MD CHEMISTRY ORDERABLES Performing Organization Address City/[facility]/[place] [address] documented in this encounter Visit Diagnoses Diagnosis Chronic systolic heart failure documented in this encounter Care Teams Casting Inspector Relationship Specialty Start Date End Date Lovely Vicente MD PCP - General 04/16/[address] [place] [address] documented as of this encounter
--- OUTSIDE RECORDS SUMMARY | 2022-03-16 08:15 | XMS_ITS | Encounter Summary ---
:1945 Author Organization [facility] [place] [address] Care Team Providers Name Role Phone Lovely Vicente MD Primary Care Provider Encounter Details Date Type Department Care Team Description 11/07/2019 TH [address] Cardiology at [facility] Danette Maxwell (arteriosclerotic heart disease); (TeleHealth) [facility] STACIE Gomes Cardiomyopathy, ischemic; Drive [facility] S/P CABG x 3; [place], [place] MARIA VICTORIA (obstructive sleep apnea) on CPAP [phone] CARDIOLOGY [phone] [place], [place] [address] Social History Tobacco Use Types [...] regurgitation present. 07/07/2019 - 07/21/2019 Zio Patch Cyber Systems Engineer The patient had a minimum heart [...] at last check 6. Post-op atrial fibrillation [id number] (CHF, HTN, DM, vascular disease, thromboembolism) Amiodarone discontinued Continue coumadin INR managed by PCP 7. PAD 08/06/2017: Right 1st, 2nd, 3rd toe amputation 08/11/2017: Left??femoral arterial access, RLE??angiogram, Balloon angioplasty of R PT with Eleazar 2.5 x 80 10/25/2017: right popliteal-pedal bypass at [facility] Continue Coumadin 8. Hypothyrodism S/p thyroidectomy [...] Nobles MD [facility] CARDIOLOGY [place], [place] 0[address] (Wo rk) 05/28/2022 Appointment Cardiology Zulma Dolan MD [facility] [place], [place] 0[address] (Wo rk) 05/28/2022 Laboratory Appointment Lab 05/28/2022 Office Visit Cardiology Zulma Dolan MD [facility] [place] [address] Liz Poole PA [facility] [place] [address] 06/10/2022 Office Visit Dermatology Laura Scherer MD [facility] DR TE[address] [place], [place] 0[address] (Wo rk) documented as of this encounter Visit Diagnoses Diagnosis ASHD (arteriosclerotic heart disease) Coronary atherosclerosis of unspecified type of vessel, craig or graft Cardiomyopathy, ischemic Other specified forms of chronic ischemi c heart disease S/P CABG x 3 Postsurgical aortocoronary bypass status MARIA VICTORIA (obstructive sleep apnea) on CPAP Obstructive sleep apnea (adult) (pediatr ic) documented in this encounter Care Teams Principal Mechanical Engineer Relationship Specialty Start Date End Date Lovely Vicente MD PCP - General 04/16/[address] [place] [address] documented as of this encounter
--- OUTSIDE RECORDS SUMMARY | 2022-03-16 08:15 | XMS_ITS | Encounter Summary ---
:1945 [place] [address] Care Team Providers Name Role Phone Lovely Vicente MD Primary Care Provider Encounter Details Date Type Department Care Team Description 07/12/2019 Office Visit Dermatology at Teja Garcia, Rigoberto Yarbrough (actinic keratosis); MD SHAY Quick III (seborrheic keratosis); [address] [facility] Multiple benign nevi; [place] [address] History of melanoma [phone] [facility]-DERMATOLGY [place], [place] [address] Social History Tobacco Use Types [...] Nobles MD [facility] DR TADE[address] [place], [place] 0[address] (Wo rk) 05/28/2022 Appointment Cardiology Zulma Dolan MD [facility] [place], [place] [address] (Wo rk) 05/28/2022 Laboratory Appointment Lab 05/28/2022 Office Visit Cardiology Zulma Dolan MD [facility] [place] [address] Liz Poole PA [facility] [place] [address] 06/10/2022 Office Visit Dermatology Laura Scherer MD [facility] DR TE[address] GR[address]DERMAT OLOG[place], [place] 0[address] (Wo rk) documented as of this encounter Visit Diagnoses Diagnosis AK (actinic keratosis) Actinic keratosis SK (seborrheic keratosis) Other seborrheic keratosis Multiple benign nevi Benign neoplasm of skin, site unspecifie d History of melanoma Personal history of malignant melanoma o f skin documented in this encounter Care Teams Glaze Supervisor Relationship Specialty Start Date End Date Lovely Vicente MD PCP - General 04/16/[address] [place] [address] [address] [facility] [place] [address] documented as of this encounter
--- OUTSIDE RECORDS SUMMARY | 2022-03-16 08:16 | XMS_ITS | Encounter Summary ---
:1945 Author Organization [facility] [place] [address] Care Team Providers Name Role Phone Lovely Vicente MD Primary Care Provider Encounter Details Date Type Department Care Team Description 09/03/2017 Telephone Vascular Surgery at [facility] Ninfa Clark, [place] [address] Social History Tobacco Use Types Packs/Day [...] help with the discomfort of the change. Decision Support Manager told the VNA that I would ask [...] Nobles MD [facility] DR TADE[address] [place], [place] [address] (Wo rk) 05/28/2022 Appointment Cardiology Zulma Dolan MD [facility] [place], [place] [address] (Wo rk) 05/28/2022 Laboratory Appointment Lab 05/28/2022 Office Visit Cardiology Zulma Dolan MD [facility] [place] [address] Liz Poole PA [facility] [place] [address] 06/10/2022 Office Visit Dermatology aLura Scherer MD [facility] DR [address]-DERMAT [place], [place] [address] (Wo rk) documented as of this encounter Visit Diagnoses Not on filedocumented in this encounter Care Teams Coal Washer Relationship Specialty Start Date End Date Lovely Vicente MD PCP - General 04/16/[address] [place] [address] documented as of this encounter
--- OUTSIDE RECORDS SUMMARY | 2022-03-16 08:16 | XMS_ITS | Encounter Summary ---
:1945 Author Organization [facility] [address] Care Team Providers Name Role Phone Lovely Vicente MD Primary Care Provider Encounter Details Date Type Department Care Team Description 08/26/2017 Hospital Encounter Vascular Lab at [facility], Athero embolism of foot, right; [place], [place] Delayed surgi nusrat wound healing[place] [phone] Social History Tobacco Use Types Packs/Day Years [...] MD [facility] DR TADE[address] [place], [place] [address] (Wo rk) 05/28/2022 Appointment Cardiology Zulma Dolan MD [facility] [place], [place] [address] (Wo rk) 05/28/2022 Laboratory Appointment Lab 05/28/2022 Office Visit Cardiology Zulma Dolan MD [facility] [place] [address] iLz Poole PA [facility] [place] [address] 06/10/2022 Office Visit Dermatology Laura Scherer MD [facility] DR TEJA GR-DERMAT OLOGY [place], [place] [address] (Wo rk) documented as of [...] Department: Vascular Surgery Lab VAS[facility] Report Patient: [id number] (GREGORY HOANG) CPT: 97311 ICD10: T81.89XA;I75.021 Referring Physician: ARIK BLOOM ?? [...] encounter documented in this encounter Care Teams Director Title Relationship Specialty Start Date End Date Lovely Vicente MD PCP - General 04/16/[address] [place] [address] documented as of this encounter
--- OUTSIDE RECORDS SUMMARY | 2022-03-16 08:16 | XMS_ITS | Encounter Summary ---
:1945 Author Organization [facility] [place] [address] Care Team Providers Name Role Phone Lovely Vicente MD Primary Care Provider Reason for Visit Reason Comments Follow-up I'm having trouble with the VAC Encounter Details Date Type Department Care Team Description 08/26/2017 Office Visit Vascular Surgery at [facility], STEPHANIE Mercado Atheroembolism of foot, right; [facility] [address] Delayed surgical wound healing, initial encounter; [facility] VASCULAR SURG YEHUDA Acute on chronic systolic congestive hea rt failure ; [place], [place] [address] [phone] Social History Tobacco Use Types Packs/Day Years [...] home and into the care of the [facility]. However, since discharge from [facility] he has had some difficulty with continuation [...] SETUP performed by Manny Mcknight MD at [facility] MAIN OR ??? PRO AMPUTATION FOOT, TRANSMETATARSAL Right 08/09/2017 AMPUTATION, TRANSMETATARSAL (WRVU 12.71) performed by Yonathan Smith MD at [facility] MAIN OR ??? PRO CABG, ARTERIAL, SINGLE N/A 07/07/2017 @CABG, USING ARTERIAL GRAFT;SINGLE ARTERIAL GRAFT (WRVU 33.75) performed by Yuan Retana MD at [facility] MAIN OR ??? PRO CABG, ARTERY-VEIN, TWO N/A 07/07/2017 @CABG, TWO VENOUS GRAFTS & ARTERIAL GRAFT (WRVU 7.93) performed by Yuan Retana MD at [facility] MAIN OR ??? PRO COLONOSCOPY, REMV LESN, SNARE 01/16/2014 COLONOSCOPY, POLYPECTOMY, REMOVAL LESION BY SNARE performed by Nohemi Jaimes MD at [facility] ENDOSCOPY ??? PRO DRESSING CHANGE UNDER ANESTHESIA Right 08/11/2017 (MSURG) DRESSING CHANGE (FOR OTHER THAN IVAN) UNDER ANES. (WRVU 0.86) performed by Lamar Smith MD at [facility] MAIN OR ??? PRO ENDOSCOPY W/VIDEO-ASST VEIN HARVEST, CABG Right 07/07/2017 ENDOSCOPIC HARVEST VEIN(S) FOR CABG (WRVU 0.31) performed by Yuan Retana MD at [facility] MAIN OR ??? PRO THYROIDECTOMY 03/28/2013 THYROIDECTOMY, TOTAL OR COMPLETE performed by Manny Mcknight MD at [facility] MAIN OR Social Hx: Social History [...] [facility] [address] T[address] [place], [place] [address] (Wo rk) 05/28/2022 Appointment Cardiology Zulma Dolan MD [facility] [address] [place], [place] [address] (Wo rk) 05/28/2022 Laboratory Appointment Lab 05/28/2022 Office Visit Cardiology Zulma Dolan MD [facility] [place] [address] Liz Poole PA [facility] [place] [address] 06/10/2022 Office Visit Dermatology Laura Scherer MD [facility] [address] TE[address]MAT [place], [place] [address] (Wo rk) documented as of [...] Component Value Ref Test Analysis Performed At [employer] Range Method Time Signature VB Text Department: Vascular Surgery Lab VASCUBASE Report Patient: [id number] (GREGORY FATIMA) CPT: 89434 ICD10: T81.89XA;I75.021 Referring Physician: ARIK CLEMENT ?? [...] Signature Glucose Lvl 98 65 - 199 [facility] mg/dL [facility] Comment: [...] or in patients with acute kidney failure. http://[employer]/DHnkdep http://[employer]/DHMCnkf Specimen Anatomical Collection Method Collection Time Receive d Time (Source) Location / / Volume Laterality Blood specimen 08/26/2017 2:00 PM 018 2:15 (specimen) EST PM EST Resulting Agency Comment Spec In Lab Danette Maxwell APRN CHEMISTRY ORDERABLES Performing Organization Address City/State/[place] [address] (ABNORMAL) pro-Brain Natriuretic Peptide (08/26/2017 2:00 PM EST) P athologist Signature ProBNP 2,373 (H) <=125 [facility]mL [facility] Specimen Anatomical Collection Method Collection Time Receive d Time (Source) Location / / Volume Laterality Blood specimen 08/26/2017 2:00 PM 018 2:15 (specimen) EST PM EST Resulting Agency Comment Spec In Lab Danette A Hans QUINONES CHEMISTRY ORDERABLES Performing Organization Address City/State/[place] [address] documented in this encounter Visit Diagnoses Diagnosis Atheroembolism of foot, right Delayed surgical wound healing, initial encounter Acute on chronic systolic congestive hea rt failure Acute on chronic systolic heart failure Ischemic cardiomyopathy Other specified forms of chronic ischemi c heart disease documented in this encounter Care Teams Subassembly Supervisor Relationship Specialty Start Date End Date Lovely Vicente MD PCP - General 04/16/[address] [place] [address] documented as of this encounter
--- OUTSIDE RECORDS SUMMARY | 2022-03-16 08:16 | XMS_ITS | Encounter Summary ---
:1945 Author Organization [facility] [place] [address] Care Team Providers Name Role Phone Lovely Vicente MD Primary Care Provider Encounter Details Date Type Department Care Team Description 08/25/2017 Telephone Pain Management at [place], [place] [address] Social History Tobacco Use Types Packs/Day [...] Management Center Preauthorization Request Patient: Don Fatima [id number] Fax received from [employer] denying prior authorization for Lidocaine Patches prescribed by Barbra Soares APRN. RX insurance plan: [employer] RX insurance telephone: [phone] Patient Diagnosis: right foot pain secondary to PVD and ischemia ? Previous medications attempted: Tylenol, Tramadol, Dilaudid Authorization/Reference number: [id number] _x_ denied, provider and patient informed _x_ appeal initiated by provider, patient informed [place] Rodrigez, RN documented in this encounter Plan of Treatment Upcoming Encounters Date Type Specialty Care Team Description 03/26/2022 Office Visit Cardiology Vitaliy Nobles MD [facility] CARDIOLOGY [place], [place] [address] (Wo rk) 05/28/2022 Appointment Cardiology Zulma Dolan MD [facility] [place], [place] [address] (Wo rk) 05/28/2022 Laboratory Appointment Lab 05/28/2022 Office Visit Cardiology Zulma Dolan MD [facility] [place] [address] Liz Poole PA [facility] [place] [address] 06/10/2022 Office Visit Dermatology Laura Scherer MD [facility] [address] [place], [place] [address] (Wo rk) documented as of this encounter Visit Diagnoses Not on filedocumented in this encounter Care Teams [employer] Launch Commander Relationship Specialty Start Date End Date Lovely Vicente MD PCP - General 04/16/[address] [place] [address] documented as of this encounter
--- OUTSIDE RECORDS SUMMARY | 2022-03-16 08:16 | XMS_ITS | Encounter Summary ---
:1945 Author Organization [facility] [place] [address] Care Team Providers Name Role Phone Lovely Vicente MD Primary Care Provider Reason for Visit Reason Onset Date Comments VNA Calls 08/30/2017 Encounter Details Date Type Department Care Team Description 08/30/2017 Telephone Vascular Surgery at [facility] Cora Reid RN VNA Calls [facility] [place] [address] Social History Tobacco Use Types Packs/Day [...] Caller: Alfonso at [facility] [phone] Reason for call: Changing his wound vac on right foot; more slough, 100% yellow, now has a foul odor, STEPHANIE Saab wanted her to know what is going on Alfonso, will change the wound vac today, however, would like further direction from Yaent first thingT. Alfonso unsure if the wound [...] Alfonso who had been in contact with [facility]'s Wound Care Nurse who advised him [...] Vitaliy Nobles MD [facility] [address] TH[address] [place], [place] [address] (Wo rk) 05/28/2022 Appointment Cardiology Zulma Dolan MD [facility] [address] [place], [place] [address] (Wo rk) 05/28/2022 Laboratory Appointment Lab 05/28/2022 Office Visit Zulma Garrison MD [facility] [place] [address] Liz Poole PA [facility] [place] [address] 06/10/2022 Office Visit Dermatology Laura Scherer MD [facility] DR [address]DER[address] [place], [place] [address] (Wo rk) documented as of this encounter Visit Diagnoses Not on filedocumented in this encounter Care Teams Sales And Marketing Intern Relationship Specialty Start Date End Date Lovely Vicente MD PCP - General 04/16/[address] [place] [address] documented as of this encounter
--- OUTSIDE RECORDS SUMMARY | 2022-03-16 08:16 | XMS_ITS | Encounter Summary ---
:1945 Author Organization [facility] [place] [address] Care Team Providers Name Role Phone Lovely Vicente MD Primary Care Provider Reason for Referral Consultation (Routine) - Specialty Diagnoses / Procedures Referred By Contact Refer red To Contact Wound Healing Center Diagnoses Atheroembolism of foot, right Delayed surgical wound healing, subsequent encounter Aurelia Rivera PA [address] [facility] [place] [address] Referral ID Status Reason Start Date Expiration Date Visits V isits Requested Authorized [id number] Consult, 09/08/2017 03/07/2018 1 1 Test & Treat Reason for Visit Reason Comments Wound Check My foot hurts Encounter Details Date Type Department Care Team Description 09/07/2017 Office Visit Vascular Surgery at MiguelAurelia PA Atheroembolism of foot, right; [facility] [address] [facility] Delayed surgical wound healing, subseque nt encounter [facility] [place] [address] [phone] Social History Tobacco Use Types Packs/Day Years [...] at home for VAC dressing changes from [facility]. Since his last visit his right forefoot [...] by Manny Mcknight MD at [facility] MAIN OR ??? PRO AMPUTATION FOOT, TRANSMETATARSAL Right 08/09/2017 AMPUTATION, TRANSMETATARSAL (WRVU 12.71) performed by Yonathan Smith MD at [facility] MAIN OR ??? PRO CABG, ARTERIAL, SINGLE N/A 07/07/2017 @CABG, USING ARTERIAL GRAFT;SINGLE ARTERIAL GRAFT (WRVU 33.75) performed by Yuan Retana MD at [facility] MAIN OR ??? PRO CABG, ARTERY-VEIN, TWO N/A 07/07/2017 @CABG, TWO VENOUS GRAFTS & ARTERIAL GRAFT (WRVU 7.93) performed by Yuan Retana MD at [facility] MAIN OR ??? PRO COLONOSCOPY, REMV LESN, SNARE 01/16/2014 COLONOSCOPY, POLYPECTOMY, REMOVAL LESION BY SNARE performed by Nohemi Jaimes MD at [facility] ENDOSCOPY ??? PRO DRESSING CHANGE UNDER ANESTHESIA Right 08/11/2017 (MSURG) DRESSING CHANGE (FOR OTHER THAN IVAN) UNDER ANES. (WRVU 0.86) performed by Lamar Smith MD at [facility] MAIN OR ??? PRO ENDOSCOPY W/VIDEO-ASST VEIN HARVEST, CABG Right 07/07/2017 ENDOSCOPIC HARVEST VEIN(S) FOR CABG (WRVU 0.31) performed by Yuan Retana MD at [facility] MAIN OR ??? PRO THYROIDECTOMY 03/28/2013 THYROIDECTOMY, TOTAL OR COMPLETE performed by Manny Mcknight MD at [facility] OR Social Hx: Social History Substance [...] [facility] [address] T[address] [place], [place] [address] (Wo rk) 05/28/2022 Appointment Cardiology Zulma Dolan MD [facility] [place], [place] [address] (Wo rk) 05/28/2022 Laboratory Appointment Lab 05/28/2022 Office Visit Cardiology Zulma Dolan MD [facility] [place] [address] [facility] [place] [address] 06/10/2022 Office Visit Dermatology Laura Scherer MD [facility] [address] [place], [place] [address] (Wo rk) Scheduled Referrals Name Type Priority Associated Diagnoses Order S chedule Referral to Wound Outpatient Referral Routine Atheroembolism o f foot, Ordered: Clinic right 09/08/2017 Delayed surgical wound healing, subsequent encounter documented as of this encounter Visit Diagnoses Diagnosis Atheroembolism of foot, right Delayed surgical wound healing, subseque nt encounter documented in this encounter Care Teams Exhibition Specialist Relationship Specialty Start Date End Date Lovely Vicente MD PCP - General 04/16/15 [address] [place] [address] documented as of this encounter
--- OUTSIDE RECORDS SUMMARY | 2022-03-16 08:16 | XMS_ITS | Encounter Summary ---
:1945 Author Organization [facility] [place] [address] Care Team Providers Name Role Phone Lovely Vicente MD Primary Care Provider Encounter Details Date Type Department Care Team Description 08/30/2017 [facility] ischemia [facility] [address] [place], [place] VASCULAR SURGERY [address] [place] [address] [phone] Social History Tobacco Use Types Packs/Day Years [...] Smith MD - 08/30/2017 2:00 PM EST [facility] staff: Patient returns. He is doing well [...] Nobles MD [facility] [address]OM[address] [place], [place] [address] (Wo rk) 05/28/2022 Appointment Cardiology Zulma Dolan MD [facility] [address] [place] [address] (Wo rk) 05/28/2022 Laboratory Appointment Lab 05/28/2022 Office Visit Cardiology Zulma Dolan MD [facility] [place] [address] Liz Poole PA [facility] [place] [address] 06/10/2022 Office Visit Dermatology Laura Scherer MD [facility] ER [address] [place], [place] [address] (Wo rk) documented as of this encounter Visit Diagnoses Diagnosis Critical lower limb ischemia Unspecified circulatory system disorder documented in this encounter Care Teams Poultry Offal Worker Relationship Specialty Start Date End Date Lovely Vicente MD PCP - General 04/16/15 [facility] [address] [place] [address] documented as of this encounter
--- OUTSIDE RECORDS SUMMARY | 2022-03-16 08:16 | XMS_ITS | Encounter Summary ---
:1945 Author Organization [facility] Address [place] [address] Care Team Providers Name Role Phone Lovely Vicente MD Primary Care Provider Encounter Details Date Type Department Care Team Description 10/07/2017 Office Visit Cardiology at [facility] Danette Maxwell Chronic systolic heart failu re; [facility] A, COLLECTIONS ASSOCIATE S/P CABG x 3; Drive [facility] On amiodarone therapy; [place], [place] Atrial fibrillation, unspecified type; [phone] CARDIOLOGY ASCVD (arteriosclerotic cardiovascular d isease) [phone] [place], [place] [address] Social History Tobacco Use [...] - documented in this encounter Progress Notes [place] Danette A, COLLECTIONS ASSOCIATE - 10/07/2017 11:20 AM EDT ID and [...] painful and swollen right foot right d/t [employer] 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 [...] by Dr. Espino On IV antibiotics at [facility] Today: Mr. Fatima is accompanied by [...] continue to see Dr. Bains well at [facility] and follow his wound on his right lower extremity. And she will continue to direct antibiotic treatment. Ihave asked that the echocardiogram results be faxed to Dr. Zurita at [facility]. 1. ASCVD Continue ASA, BB and [...] and bone removal by Dr. Aguero at [facility]. Currently receiving IV antibiotics at [facility] ? Plan: 1. A review of [...] Failure Clinic follow up scheduled for: September Dantete Maxwell APRN 10/06/2017 documented in this encounter Plan of Treatment Upcoming Encounters Date Type Specialty Care Team Description 03/26/2022 Office Visit Cardiology Vitaliy Nobles MD [facility] [address] [place], [place] 0[address] (Wo rk) 05/28/2022 Appointment Cardiology Zulma Dolan MD [facility] [address] [place] [address] (Wo rk) 05/28/2022 Laboratory Appointment Lab 05/28/2022 Office Visit Cardiology Zulma Dolan [place] [address] Liz Poole PA [facility] [place] [address] 06/10/2022 Office Visit Dermatology Laura Scherer MD [facility] [address] [place], [place] [address] (Wo rk) documented as of this encounter Results (ABNORMAL) Basic Metabolic Panel (non-fasting) (10/07/2017 8:48 AM EDT) P athologist Signature Glucose Lvl 99 65 - 199 [facility] mg/dL [facility] Comment: Diabetes: >=200 mg/dL plus symp toms BUN 27 (H) 10 - 20 mg/dL [facility] Creatinine 1.07 0.80 - 1.50 mg/dL [facility] Calcium 8.4 (L) 8.5 - 10.5 mg/dL [facility] Estimated GFR >60 >=60 [facility] Comment: The reported eGFR should be multiplied b y 1.2 for patients. The MDRD is not an appropriate measure o f renal function for patients with body mass extremes or in patients with acute kidney failure. http://[employer].fm/DHnkdep http://[employer]/DHMCnkf Specimen Anatomical Collection Method Collection Time Receive d Time (Source) Location / / Volume Laterality Blood specimen 10/07/2017 8:48 AM 018 8:50 (specimen) EDT AM EDT Resulting Agency Comment Spec In Lab Danette Maxwell APRN CHEMISTRY ORDERABLES Performing Organization Address City/State/ZIP Code Phon e Number [place] [id number] (ABNORMAL) pro-Brain Natriuretic Peptide (10/07/2017 8:48 AM EDT) P athologist Signature ProBNP 1,170 (H) <=125 [facility] pg/mL [facility] Specimen Anatomical Collection Method Collection Time Receive d Time (Source) Location / / Volume Laterality Blood specimen 10/07/2017 8:48 AM 018 8:50 (specimen) EDT AM EDT Resulting Agency Comment Spec In Lab Danette Maxwell APRN CHEMISTRY ORDERABLES Performing Organization Address City/State/[place] [address] documented in this encounter Visit Diagnoses Diagnosis Chronic systolic heart failure S/P CABG x 3 Postsurgical aortocoronary bypass status On amiodarone therapy Atrial fibrillation, unspecified type ASCVD (arteriosclerotic cardiovascular d isease) Unspecified cardiovascular disease documented in this encounter Care Teams Foreign Language Teacher Relationship Specialty Start Date End Date Lovely Vicente MD PCP - General 04/16/[address] [place] [address] documented as of this encounter
--- OUTSIDE RECORDS SUMMARY | 2022-03-16 08:16 | XMS_ITS | Encounter Summary ---
:1945 Author Organization [facility] [place] [address] Care Team Providers Name Role Phone Lovely Vicente MD Primary Care Provider Encounter Details Date Type Department Care Team Description 10/05/2017 Telephone Cardiology at [facility] Tamiko Sin MD [facility] [place] [address] CARDIOLOGY DEPT [phone] [place], [place] [address] (Wo rk) Social History Tobacco [...] Vitaliy Nobles MD [facility] [address] [place] [address] (Wo rk) 05/28/2022 Appointment Cardiology Zulma Dolan MD [facility] [address] [place] [address] (Wo rk) 05/28/2022 Laboratory Appointment Lab 05/28/2022 Office Visit Cardiology Zulma Dolan MD [facility] [place] [address] Liz Poole PA [facility] [place] [address] 06/10/2022 Office Visit Dermatology Laura Scherer MD [facility] [address] [place], [place] [address] (Wo rk) documented as of this encounter Visit Diagnoses Not on filedocumented in this encounter Care Teams Staff Midwife Relationship Specialty Start Date End Date Lovely Vicente MD PCP - General 04/16/[address] [place] [address] documented as of this encounter
--- OUTSIDE RECORDS SUMMARY | 2022-03-16 08:16 | XMS_ITS | Encounter Summary ---
:1945 Author Organization [facility] [place] [address] Care Team Providers Name Role Phone Lovely Vicente MD Primary Care Provider Encounter Details Date Type Department Care Team Description 08/19/2017 Hospital Encounter XRay at [facility] Martha Teague, S/P CABG x 3 [address] [facility] [place] [address] [place] [address] RD [phone] [facility] [place], [place] [address] (Wo rk) Social History [...] Vitaliy Nobles MD [facility] CARDIOLOGY [place], [place] [address] (Wo rk) 05/28/2022 Appointment Cardiology Zulma Dolan MD [facility] [address] [place], [place] [address] (Wo rk) 05/28/2022 Laboratory Appointment Lab 05/28/2022 Office Visit Cardiology Zulma Dolan MD [facility] [place] [address] [facility] [place] [address] 06/10/2022 Office Visit Dermatology Laura Scherer MD [facility] DR TE[address] [place], [place] [address] (Wo rk) documented as [...] 2017 EXAMINATION: XR CHEST PA AND LATERAL (PipetteIC) CLINICAL HISTORY: CABG x 3 TECHNIQUE: PA [...] status documented in this encounter Care Teams Franchise Sales Representative Relationship Specialty Start Date End Date Lovely Vicente MD PCP - General 04/16/15 [address] [place] [address] documented as of this encounter
--- OUTSIDE RECORDS SUMMARY | 2022-03-16 08:16 | XMS_ITS | Encounter Summary ---
:1945 Author Organization [facility] [place] [address] Care Team Providers Name Role Phone Lovely Vicente MD Primary Care Provider Reason for Referral Diagnostic Test (Routine) - Closed Specialty Diagnoses / Procedures Referred By Contact Refer red To Contact Cardiology Diagnoses Ischemic cardiomyopathy Acute on chronic systolic congestive heart failure Danette Maxwell APRN [facility] Non-Inv Card Lab Procedures Echocardiogram Transthoracic(Leb) [facility] [place] [address] [place] [address] Referral ID Status Reason Start Date Expiration Date Visits V isits Requested Authorized [id number] Closed Specialty 08/30/2017 08/30/2018 1 1 Service Requested Reason for Visit Diagnostic Test (Routine) - Closed Specialty Diagnoses / Procedures Referred By Contact Refer red To Contact Cardiology Diagnoses Ischemic cardiomyopathy Acute on chronic systolic congestive heart failure Danette Maxwell APRN [facility] Non-Inv Card Lab Procedures Echocardiogram Transthoracic(Leb) [facility] [place] [address] [place] [address] Referral ID Status Reason Start Date Expiration Date Visits V isits Requested Authorized [id number] Closed Specialty 08/30/2017 08/30/2018 1 1 Service Requested Encounter Details Date Type Department Care Team Description 10/07/2017 Hospital Encounter Non-Invasive Ischemic cardiomyopathy; Cardiology Lab Barbara Craig on chronic systolic [place] [address] Social History Tobacco Use Types Packs/Day [...] Nobles MD [facility] ER CARDIOLOGY [place], [place] [address] (Wo rk) 05/28/2022 Appointment Cardiology Zulma Dolan MD [facility] [place], [place] [address] (Wo rk) 05/28/2022 Laboratory Appointment Lab 05/28/2022 Office Visit Cardiology Zulma Dolan MD [facility] [place] [address] Liz Poole PA [facility] [place] [address] 06/10/2022 Office Visit Dermatology Laura Scherer MD [facility] [address] [place], [place] 0375 (Wo rk) documented as of [...] Mccollum ? (Age): 1945(72y) Med Rec#: ? [id number] ?Sex: ?M ? Site Loc: ? [facility] ?Ht / Wt: ??173(cm)/82(kg) Pt. Loc: ?Echo Lab ?BSA: ?1.96 Study Date: ?? 10/07/2017 ?Pt. Type: Outpatient Tape: ? Referring: Danette Maxwell Reading: Iker Cuevas ([id number]) Splash Line Operator: Yonathan Bocanegra Diagnosis: *ICD-10-PCS Ischemic cardiomyopathy [...] E-wave Vmax ?1.2 ?m/sec ? MV deceleration [id number] ?msec ? MV A-wave Vmax ?1 ?m/sec [...] ? Mid-Inferior ?Hypokinetic ? Mid-Inferoseptal ?Hypokinetic ? [place]-Septal ? Akinetic ? [place]-Anterior ? Hypokinetic ? [place]-Lateral ?Hypokinetic ? [place]-Inferior ? Hypokinetic ? [place]-Tip ?Akinetic ? This report has been electronically sign ed by: _ Iker Cuevas M.D. ? 10/07/2017 11:12:34 Images reviewed and interpretation verif ied [facility] Cardiac Ultrasound Laboratory Procedure Note Iker Cuevas MD - 10/07/2017Formatti ng of this note might be different from the original. Procedure: Transthoracic Echocardiogram Patient: NATALYA MCBRIDE(Age): [birth year]72y) Med Rec#: [id number] Sex: M Site Loc: [facility] Ht / Wt: 173(cm)/82(kg) Pt. Loc: Echo Lab BSA: 1.96 Study Date: 10/07/2017 Pt. Type: Outpati ent Tape: Referring: Danette Maxwell Reading: Iker Cuevas ([id number]) Splash Line Operator: Yonathan Bocanegra Diagnosis: *ICD-10-PCS Ischemic cardiomyopathy [...] MV E-wave Vmax 1.2 m/sec MV deceleration [id number] msec MV A-wave Vmax 1 m/sec MV [...] Akinetic Mid-Posterolateral Hypokinetic Mid-Inferior Hypokinetic Mid-Inferoseptal Hypokinetic [place]-Septal Akinetic [place]-Anterior Hypokinetic [place]-Lateral Hypokinetic [place]-Inferior Hypokinetic [place]-Tip Akinetic This report has been electronically sign ed by: _ Iker Cuevas M.D. 10/07/2017 11:12 :34 Images reviewed and interpretation verif ied [facility] Cardiac Ultrasound Laboratory Danette Maxwell [...] Routine documented in this encounter Care Teams Technology Sales Specialist Relationship Specialty Start Date End Date Lovely Vicente MD PCP - General 04/16/[address] [place] [address] [address] [place] [address] documented as of this encounter
--- OUTSIDE RECORDS SUMMARY | 2022-03-16 08:16 | XMS_ITS | Encounter Summary ---
:1945 Author Organization [facility] [place] [address] Care Team Providers Name Role Phone Lovely Vicente MD Primary Care Provider Encounter Details Date Type Department Care Team Description 09/16/2017 Hospital [place] [address] Social History Tobacco Use Types Packs/Day [...] [facility] [address] T[address]O [place], [place] 0[address] (Wo rk) 05/28/2022 Appointment Cardiology Zulma Dolan MD [facility] [place], [place] 0375 (Wo rk) 05/28/2022 Laboratory Appointment Lab 05/28/2022 Office Visit Cardiology Zulma Dolan MD [facility] [place] [address] Liz Poole PA [facility] [place] [address] 06/10/2022 Office Visit Dermatology Laura Scherer MD [facility] [address] TE[address]MAT [place], [place] 0375 (Wo rk) documented as [...] Patholo gist Range Method Time Signature Surgical [id number] ? Location: [facility] Pathology RYAN Report The signing pathologist has [...] Henrique Flower Verified: ??09/24/2017 ?Pathologist Performed at: ??-[facility] Dept. of Pathology, [place], [place] CLINICAL INFORMATION Specimen Submitted: A - [...] Organization Address City/State/[place]IP [place] [address] documented in this encounter Visit Diagnoses Not on filedocumented in this encounter Care Teams Heel Sprayer First Relationship Specialty Start Date End Date Lovely Vicente MD PCP - General 04/16/[address] [place] [address] documented as of this encounter
--- OUTSIDE RECORDS SUMMARY | 2022-03-16 08:16 | XMS_ITS | Encounter Summary ---
:1945 Author Organization [facility] [place] [address] Care Team Providers Name Role Phone Lovely Vicente MD Primary Care Provider Reason for Visit Reason Comments Follow-up Encounter Details Date Type Department Care Team Description 08/19/2017 Office Visit Cardiac Surgery at [place], Jock S/P C ABG (coronary [facility], artery bypass graft) [facility] [place] CARDIOTHORACIC [address] SURGERY [phone] [place], [place] [address] Social History Tobacco Use Types [...] office. Best personal regards, Yuan [place] MD [phone] documented in this encounter Plan of Treatment Upcoming Encounters Date Type Specialty Care Team Description 03/26/2022 Office Visit Cardiology Vitaliy Nobles MD [facility] DR [address] [place], [place] [address] (Wo rk) 05/28/2022 Appointment Cardiology Zulma Dolan MD [facility] [address] [place] 0[address] (Wo rk) 05/28/2022 Laboratory Appointment Lab 05/28/2022 Office Visit Cardiology Zulma Dolan [place] [address] Liz Poole PA [facility] [place] [address] 06/10/2022 Office Visit Dermatology Laura Scherer MD [facility] DR [address] [place], [place] [address] (Wo rk) documented as [...] 454 ms MUSE SYSTEM (Bezet) Calculated P [place] 20 degrees MUSE SYSTEM Calculated R [place] -29 degrees MUSE SYSTEM Calculated T [place] 121 degrees MUSE SYSTEM INTERPRETATION Normal sinus rhythm MUSE SYSTEM Inferior infarct (cited on or before 25-JAN-2013) Anterior 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) T wave abnormality, consider lateral ischemia Abnormal ECG When compared with ECG of 06-AUG-2017 12:37, No signif icant change was found Confirmed by MD Luci, Taurus Braun ([id number]) on 08/19/2017 1 0:37:38 PM Specimen Anatomical [...] status documented in this encounter Care Teams Field Crew Chief Relationship Specialty Start Date End Date Lovely Vicente MD PCP - General 04/16/15 [facility] [address] [place] [address] documented as of this encounter
--- OUTSIDE RECORDS SUMMARY | 2022-03-16 08:16 | XMS_ITS | Encounter Summary ---
:1945 Author Organization [facility] [place] [address] Care Team Providers Name Role Phone Lovely Vicente MD Primary Care Provider Encounter Details Date Type Department Care Team Description 08/19/2017 Office Visit Vascular Surgery at [place], PAD (peripheral artery [facility] MANAGER LEASING disease) [facility] [address] [place], [place] VASCULAR SURGERY [address] [place] [address] [phone] Social History Tobacco Use Types Packs/Day Years [...] [facility] [address] TADEO [place], [place] 0375 (Wo rk) 05/28/2022 Appointment Cardiology Zulma Dolan MD [facility] [address] [place], [place] [address] (Wo rk) 05/28/2022 Laboratory Appointment Lab 05/28/2022 Office Visit Cardiology Zulma Dolan MD [facility] [place] [address] Liz Poole PA [facility] [place] [address] 06/10/2022 Office Visit Dermatology Laura Scherer MD [facility] DR [address] [place], [place] 0375 (Wo rk) documented as of this encounter Visit Diagnoses Diagnosis PAD (peripheral artery disease) Peripheral vascular disease, unspecified documented in this encounter Care Teams Reproduction Specialist Relationship Specialty Start Date End Date Lovely Vicente MD PCP - General 04/16/[address] [place] [address] documented as of this encounter
--- OUTSIDE RECORDS SUMMARY | 2022-03-16 08:16 | XMS_ITS | Encounter Summary ---
:1945 Author Organization [facility] [place] [address] Care Team Providers Name Role Phone Lovely Vicente MD Primary Care Provider Encounter Details Date Type Department Care Team Description 10/05/2017 Unscheduled Cardiology at [facility] RONNIE Sin PATIENT NOT SEEN Encounter [facility] Tamiko Martinez MD [facility] [address] CARDIOLOGY DEPT [phone] [place] [address] Social History Tobacco Use Types Packs/Day Years [...] [facility] ER [address] TADEO [place], [place] 0[address] (Wo rk) 05/28/2022 Appointment Cardiology Zulma Dolan MD [facility] [place], [place] 0[address] (Wo rk) 05/28/2022 Laboratory Appointment Lab 05/28/2022 Office Visit Cardiology Zulma Dolan MD [facility] [place] [address] Liz Poole PA [facility] [place] [address] 06/10/2022 Office Visit Dermatology Laura Scherer MD [facility] [address] [place], [place] 0375 (Wo rk) documented as of this encounter Visit Diagnoses Diagnosis DH PATIENT NOT SEEN documented in this encounter Care Teams Mine Analyst Relationship Specialty Start Date End Date Lovely Vicente MD PCP - General 04/16/[address] [place] [address] documented as of this encounter
--- OUTSIDE RECORDS SUMMARY | 2022-03-16 08:16 | XMS_ITS | Encounter Summary ---
:1945 Author Organization [facility] [place] [address] Care Team Providers Name Role Phone Lovely Vicente MD Primary Care Provider Reason for Referral Diagnostic Test (Routine) - Closed Specialty Diagnoses / Procedures Referred By Contact Refer red To Contact Cardiology Diagnoses Ischemic cardiomyopathy Acute on chronic systolic congestive heart failure Danette Maxwell APRN [facility] Non-Inv Card Lab Procedures Echocardiogram Transthoracic(Leb) [facility] [place] [address] [place] [address] Referral ID Status Reason Start Date Expiration Date Visits V isits Requested Authorized [id number] Closed Specialty 08/30/2017 08/30/2018 1 1 Service Requested Encounter Details Date Type Department Care Team Description 08/26/2017 Office Visit Cardiology [place] [facility] Danette Maxwell Ischemic cardiomyopathy; [facility] STACIE Gomes Acute on chronic systolic congestive hea rt failure ; Drive [facility] ASCVD (arteriosclerotic card iovascular disease); [place], [place] PAF (paroxysmal atrial fibrillation); [address] CARDIOLOGY PAD (peripheral artery disease) [phone] [place], [place] [address] Social History Tobacco Use Types Packs/Day Years [...] 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 [...] Nobles MD [facility] DR T[address] [place], [place] 0375 (Wo rk) 05/28/2022 Appointment Cardiology Zulma Dolan MD [facility] [address] [place], [place] 0[address] (Wo rk) 05/28/2022 Laboratory Appointment Lab 05/28/2022 Office Visit Cardiology Zulma Dolan MD [facility] [place] [address] Liz Poole PA [facility] [place] [address] 06/10/2022 Office Visit Dermatology Laura Scherer MD [facility] DR [address]MAT [place], [place] 0375 (Wo rk) documented as of this encounter Results ECHOCARDIOGRAM COMPLETE W CONTRAST (10/07/2017 10:23 AM EDT) athologist Signature EF 45 [facility] Specimen (Source) Anatomical Location Collection Method / Collectio n Time Received Time / Laterality Volume 10/07/2017 Narrative [facility] - 10/07/2017 11:13 AM ED T Procedure: ?Transthoracic Echocardiogram Patient: ?NATALYA JENKINS E ? (Age): 1945(72y) Med Rec#: ? [id number] ?Sex: ?M ? [place] Loc: ? [facility] ?Ht / Wt: ??173(cm)/82(kg) Pt. Loc: ?Echo Lab ?BSA: ?1.96 Study Date: ?? 10/07/2017 ?Pt. Type: Outpatient Tape: ? Referring: Danette Maxwell Reading: Iker Cuevas ([id number]) Editor Publications: Yonathan Bocanegra Diagnosis: *ICD-10-PCS Ischemic cardiomyopathy (I2 [...] E-wave Vmax ?1.2 ?m/sec ? MV deceleration [id number] ?msec ? MV A-wave Vmax ?1 ?m/sec [...] ? Mid-Inferior ?Hypokinetic ? Mid-Inferoseptal ?Hypokinetic ? [place]-Septal ? Akinetic ? [place]-Anterior ? Hypokinetic ? [place]-Lateral ?Hypokinetic ? [place]-Inferior ? Hypokinetic ? [place]-Tip ?Akinetic ? This report has been electronically sign ed by: _ Iker Cuevas M.D. ? 10/07/2017 11:12:34 Images reviewed and interpretation verif d [facility] Cardiac Ultrasound Laboratory Procedure Note Iker Cuevas MD - 10/07/2017Formatti ng of this note might be different from the original. Procedure: Transthoracic Echocardiogram Patient: NATALYA MCBRIDE(Age): [birth year]72y) Med Rec#: [id number] Sex: M Site Loc: [facility] Ht / Wt: 173(cm)/82(kg) Pt. Loc: Echo Lab BSA: 1.96 Study Date: 10/07/2017 Pt. Type: Outpati ent Tape: Referring: Danette Maxwell Reading: Iker Cuevas ([id number]) Editor Publications: Yonathan Bocanegra Diagnosis: *ICD-10-PCS Ischemic cardiomyopathy (I2 [...] MV E-wave Vmax 1.2 m/sec MV deceleration [id number] msec MV A-wave Vmax 1 m/sec MV [...] Akinetic Mid-Posterolateral Hypokinetic Mid-Inferior Hypokinetic Mid-Inferoseptal Hypokinetic [place]-Septal Akinetic [place]-Anterior Hypokinetic [place]-Lateral Hypokinetic [place]-Inferior Hypokinetic [place]-Tip Akinetic This report has been electronically sign ed by: _ Iker Cuevas M.D. 10/07/2017 11:12 :34 Images reviewed and interpretation verif ied [facility] Cardiac Ultrasound Laboratory Danette Maxwell APRN ECHO ORDERABLES Performing Organization Address City/State/ZIP Code Phon e Number [facility] Basic Metabolic Panel (non-fasting) (08/26/2017 2:00 PM EST) P athologist Signature Glucose Lvl 98 65 - 199 [facility] mg/dL [facility]OR[facility]ORY Comment: Diabetes: >=200 mg/dL plus symp toms BUN 20 10 - 20 mg/dL [facility] Creatinine 1.17 0.80 - 1.50 mg/dL [facility] [...] or in patients with acute kidney failure. [email or web address]/DHnkdep http://TextMaster/DHMCnkf Specimen Anatomical Collection Method Collection Time Receive d Time (Source) Location / / Volume Laterality Blood specimen 08/26/2017 2:00 PM 018 2:15 (specimen) EST PM EST Resulting Agency Comment Spec In Lab Danette Maxwell APRN CHEMISTRY ORDERABLES Performing Organization Address City/[facility]/[place]IP [place] [address] (ABNORMAL) pro-Brain Natriuretic Peptide (08/26/2017 2:00 PM EST) P athologist Signature ProBNP 2,373 (H) <=125 [facility] pg[facility]mL [facility] Specimen Anatomical Collection Method Collection Time Receive d Time (Source) Location / / Volume Laterality Blood specimen 08/26/2017 2:00 PM 018 2:15 (specimen) EST PM EST Resulting Agency Comment Spec In Lab Danette Maxwell APRN CHEMISTRY ORDERABLES Performing Organization Address City/State/[place] [address] documented in this encounter [...] documented in this encounter Care Teams Teacher Counselor Relationship Specialty Start Date End Date Lovely Vicente MD PCP - General 04/16/[address] [place] [address] documented as of this encounter
--- OUTSIDE RECORDS SUMMARY | 2022-03-16 08:16 | XMS_ITS | Encounter Summary ---
:1945 Author Organization [facility] [place] [address] Care Team Providers Name Role Phone Lovely Vicente MD Primary Care Provider Encounter Details Date Type Department Care Team Description 09/06/2017 Orders Only Vascular Surgery at [facility] Ninfa Clark, [facility] [place] [address] Social History Tobacco Use Types Packs/Day [...] [facility] [address] TADEO [place], [place] [address] (Wo rk) 05/28/2022 Appointment Cardiology Zulma Dolan MD [facility] [address] [place] 0[address] (Wo rk) 05/28/2022 Laboratory Appointment Lab 05/28/2022 Office Visit Cardiology Zulma Dolan MD [facility] [place] [address] Liz Poole PA [facility] [place] [address] 06/10/2022 Office Visit Dermatology Laura Scherer MD [facility] [address] [place], [place] 0375 (Wo rk) documented as of this encounter Visit Diagnoses Not on filedocumented in this encounter Care Teams Platform Material Handling Supervisor Relationship Specialty Start Date End Date Lovely Vicente MD PCP - General 04/16/[address] [place] [address] documented as of this encounter
--- OUTSIDE RECORDS SUMMARY | 2022-03-16 08:16 | XMS_ITS | Encounter Summary ---
:1945 Author Organization [place] [address] Care Team Providers Name Role Phone Lovely Vicente MD Primary Care Provider Encounter Details Date Type Department Care Team Description 09/07/2017 Office Visit Endocrinology at [facility] Maria Ines Stallings of [facility] MD [place] [address] CENTER [phone] ENDOCRINOLOGY DEPT [place], [place] [address] Social History Tobacco Use Types [...] [facility] ER DR TADEO [place], [place] [address]375 (Wo rk) 05/28/2022 Appointment Cardiology Zulma Dolan MD [facility] [place], [place] [address] (Wo rk) 05/28/2022 Laboratory Appointment Lab 05/28/2022 Office Visit Cardiology Zulma Dolan MD [facility] [place] [address] Liz Poole PA [facility] [place] [address] 06/10/2022 Office Visit Dermatology Laura Scherer MD [facility] DR TEJA [address]DERMAT [place], [place] 0375 (Wo rk) documented as of this encounter Visit Diagnoses Diagnosis Hx of papillary thyroid carcinoma Personal history of malignant neoplasm o f thyroid documented in this encounter Care Teams Carton Folder Relationship Specialty Start Date End Date Lovely Vicente MD PCP - General 04/16/[address] [place] [address] documented as of this encounter
--- OUTSIDE RECORDS SUMMARY | 2022-03-16 08:16 | XMS_ITS | Encounter Summary ---
:1945 Author Organization [facility] [place] [address] Care Team Providers Name Role Phone Lovely Vicente MD Primary Care Provider Encounter Details Date Type Department Care Team Description 09/06/2017 Telephone Vascular Surgery at [facility] Ninfa Clark, [place] [address] Social History Tobacco Use Types Packs/Day [...] [facility] DR TADEO [place], [place] 0375 (Wo rk) 05/28/2022 Appointment Cardiology Zulma Dolan MD [facility] [address] [place], [place] 0[address] (Wo rk) 05/28/2022 Laboratory Appointment Lab 05/28/2022 Office Visit Cardiology Zulma Dolan MD [facility] [place] [address] Liz Poole PA [facility] [place] [address] 06/10/2022 Office Visit Dermatology Laura Scherer MD [facility] DR TE[address]DERMAT [place], [place] 0375 (Wo rk) documented as of this encounter Visit Diagnoses Not on filedocumented in this encounter Care Teams Conductor Pullman Relationship Specialty Start Date End Date Lovely Vicente MD PCP - General 04/16/[address] [place] [address] documented as of this encounter
--- OUTSIDE RECORDS SUMMARY | 2022-03-16 08:16 | XMS_ITS | Encounter Summary ---
:1945 Author Organization [facility] [place] [address] Care Team Providers Name Role Phone Lovely Vicente MD Primary Care Provider Encounter Details Date Type Department Care Team Description 09/07/2017 Laboratory Appointment Lab 3L [facility] Hx of [facility] [place] [address] Social History Tobacco Use Types Packs/Day Years [...] MD [facility] DR CARLYLE [place], [place] 0375 (Wo rk) 05/28/2022 Appointment Cardiology Zulma Dolan MD [facility] Dr [address] [place] 0375 (Wo rk) 05/28/2022 Laboratory Appointment Lab 05/28/2022 Office Visit Cardiology Zulma Dolan MD [facility] [place] [address] Liz Poole PA [facility] [place] [address] 06/10/2022 Office Visit Dermatology Laura Scherer MD [facility] ER DR [address]-DERMAT [place], [place] 0375 (Wo rk) documented as of [...] PM EST) athologist Signature Thyroglobulin 1.4 <=54.9 [facility] ng/mL [facility] Comment: Thyroglobulin levels may be [...] Address City/State/ZIP Code Phon e Number [place] [id number] TSH (09/07/2017 2:41 PM EST) P athologist Signature TSH 3.93 0.27 - 4.20 [facility] mlU/ML [facility] Specimen Anatomical Collection Method Collection Time Receive d Time (Source) Location / / Volume Laterality Blood specimen 09/07/2017 2:41 PM 018 2:46 (specimen) EST PM EST Resulting Agency Comment Spec In Lab Luz Prescott MD CHEMISTRY ORDERABLES Performing Organization Address City/State/[place] [address] documented in this encounter Visit Diagnoses Diagnosis Hx of papillary thyroid carcinoma Personal history of malignant neoplasm o f thyroid documented in this encounter Care Teams Head Of Ethics And Compliance Relationship Specialty Start Date End Date Lovely Vicente MD PCP - General 04/16/[address] [place] [address] documented as of this encounter
--- OUTSIDE RECORDS SUMMARY | 2022-03-16 08:17 | XMS_ITS | Encounter Summary ---
:1945 [place] [address] Care Team Providers Name Role Phone Lovely Vicente MD Primary Care Provider Reason for Visit Auth/Cert Specialty Diagnoses / Procedures Referred By Contact Refer red To Contact Diagnoses Critical lower limb ischemia CELLULITIS RT FOOT Procedures EMERGENCY Referral ID Status Reason Start Date Expiration Date Visits Requ ested Visits Authorized [id number] 1 1 Encounter Details Date Type Department Care Team Description 08/06/2017 - Hospital Encounter 5 Yonathan Oneill lower limb ischemia; 08/16/2017 Su Flores MD Ischemic foot Hospital [facility] [address] [place] [address] [phone] Social History Tobacco Use Types Packs/Day Years [...] 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 [...] the foot. Discharge Conditions/Prognosis: Good Discharge to: [facility] Rehab Discharge Medications: Your Medications New [...] For any problems or questions please call [phone] ZELDA Smith, automobile accessories salesperson Nurse Clinician For issues on weeknights after 5pm and weekends please call [phone] and ask for the Vascular Fellow drone pilot. General Instructions None Future Appointments and Orders Future Appointments Provider Department Dept Phone 08/26/2017 4:00 PM Aurelia Rivera PA [facility] [place] [phone] 09/07/2017 3:00 PM LAB, THREE L Lab 3L [facility] [phone] 09/07/2017 4:00 PM Luz Prescott MD Endocrinology [facility] [place] [phone] 09/09/2017 8:00 AM Barbra Soares APRN Pain Management [facility] [place] [phone] Please bring a list of your current [...] For any problems or questions please call [phone] ZELDA Smith, automobile accessories salesperson Nurse Clinician For issues on weeknights after 5pm and weekends please call [phone] and ask for the Vascular Fellow drone pilot. documented in this encounter Medications at Time [...] Discharge Note Patient Destination: [facility] ([facility]) [address] [place] [address] Transportation: with (at bedside) Time of Discharge: by 12 noon Level of Care: swing Patient Aware: yes Family Notified: yes Md to call report to: Yissel Quintero SPECIAL EFFECTS DESIGNER already called RN to call report to: [phone] Shirin Wolf Office of Care Management Pager [phone] Shirin Wolf RN - 08/16/2017 10:50 AM EST [facility] has offered pt swing bed. Pt and accept bed. will transport via car. SPECIAL EFFECTS DESIGNER Yissel Quintero aware; d/c paperwork will be completed by 12 noon. [facility] requests pt arrival by 1400 today; SPECIAL EFFECTS DESIGNER, RN, and family aware. SPECIAL EFFECTS DESIGNER called [facility] and was told that they prefer pt to arrive with wound vac dressing applied but clamped. SPECIAL EFFECTS DESIGNER applied new wound vac dressing. RN has [facility] number to call report. PASSR completed; SPECIAL EFFECTS DESIGNER paged to request provider signature in highlighted space. Indigo from [facility] notified via email that home wound vac now cancelled; [facility] has picked up from room and order cancelled. Packet started and provided to community services coordinator. Medicare important message explained to patient, patient signed. Copy provided to patient and signature page to OCM for inclusion in pt EMR. Radha Georges - 08/16/2017 10:34 AM EST Office of Care Management/Document Manager Patient Name: Gregory Hoang : 1945 Patient has been offered a swing bed at [facility]. The patient will be transported by private transportation. No MD to MD report necessary Please call Nursing Report to [phone], ask for maintenance mechanic helper. Info to accompany patient: Narcotic Prescriptions Copies of Medication Administration Records and IV sheets for past 10 days. Plan: Document Manager will be available to the patient and Pharmacology Teacher-RN and/or Obstetrician And Gynaecologist for further assistance. Patient will be discharged to: [place] [phone] Radha Powers, Document Manager Mira Black, VAMSI - 08/15/2017 10:05 PM EST [address] Flores to ask if he wanted to hold metoprolol dose. BP 95/58. OK to hold this dose Courtney Brito - 08/15/2017 3:26 PM EST Office of Care Management(OCM)/Document Manager(RS)/ D/C Planning re : Patient is medically ready for d/c today. RS has been in contact with [facility] to see if they could offer a bed. [facility] is still reviewing the case and need their MD to review chart prior to accepting or declining. OCM team needs to check in with [facility] tomorrow to check on status. 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 Vac in place. Rehab referrals ongoing. Can ambulate in hallway. Change VAC at bedside today. Naty Colindres RN - 08/14/2017 1:33 PM EST Patient Name: Gregory Hoang Patient Age: 72 y.o. Birthdate: 1945 Admit date: 08/06/2017 Attending Physician: Yonathan Smith MD We want him to go to a place for intensive therapy and not at a alf where he will be just sitting there and not getting any therapy. . Contacted by direct care RN, who said that patient and would like information about patient's referral to: [facility] PHONE: [phone] FAX: [phone] CM spoke with RS who said that [...] would be accepted to acute rehab at [facility] as Dr. Smith had recommended [...] rehab. Await recommendations from PT. Covering pager #[phone]. 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 Supervisor Mending Kaitlin Saha, RN Pager #[phone] Payam Rosales - 08/13/2017 2:37 PM EST [facility] Encounter Note Patient Name: Gregory Hoang : [id number] MR#: [id number] Admit Date: 08/06/2017 1:41 PM Hospital Day 7 days Narrative: Visited to introduce and assess acceptance of [facility] services. Pt was awake, alert, oriented and in chair and family was there. Assessment:Patient coping positively with stresses of illness/hospitalization at this time. Pt says that he is hoping to get better and his family was there. Pt says that he has family care and supportand taking one day at time. Intervention and Outcome: Provided emotional support and encouraging presence. 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 A letter describing our affiliations was reviewed with them and theywere educated about their right to choose where referrals are placed. Patient requests referral to [facility]. PHONE: [phone] FAX: [phone]. And Home NPWT (Negative Pressure Wound Therapy) aka wound vac device made available to pt. Serial # confirmed. Reviewed [facility] Proof of Delivery/Assignment of Benefits Statement(POD/AOB) Form w patient or authorized agent signing on behalf of patient. Copy of POD/AOB provided to pt and other copy faxed to [employer] @ fax# [phone] Expected date of discharge: 08/12/2017. 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 Address: [address] [place] [address] [place] [address] (home) Mobile: Telephone Information: Referring Provider: No [...] [facility] ??? 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 Heparin gtt continues to run. Pt [...] of : 1945 AGE 72 y.o. Address: [address] [place] [address] [place] [address] (home) Mobile: Telephone Information: Referring Provider: No [...] [facility] ??? PRO COLONOSCOPY, REMV [...] Mcknight MD at [facility] Date/Procedure Meds given/comments No [...] Take 1 tablet by mouth daily. 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 Unsuccessful draw attempt, another rehabilitation tech will come [facility] to collect blood for PTT test. 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 Vascular resident drone pilot and will forward result to the team prior to rounds. 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 [...] [facility] ??? PRO COLONOSCOPY, REMV [...] Mcknight MD at [facility] Functional Status/Social Hx: Quit [...] left blue toes with CTA showing R BLOGS MANAGER pseudoaneurysm (now thrombosed) and occluded ATs [...] 2.5x80 5. Completion RLE angiogram 6. L BLOGS MANAGER angiogram 7. 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 - L BLOGS MANAGER angriogram demonstrated: High femoral bifurcation over the proximal half of the femoral head. L BLOGS MANAGER access in the distal L BLOGS MANAGER. - Closure device: Mynx Technical Procedure: [...] for a 45cm 5F Destination. V18 and [place] and QuickCross catheters were used to select [...] 5F. A stationed picture of the L BLOGS MANAGER was performed as the patient was noted to have a very high bifurcation. Access appeared in the distal R BLOGS MANAGER. Closure and sheath removal was performed [...] PM EST 1440 report called to 5 [place] nurse Tessa AGUSTIN documented in this encounter [...] with pt and pt's spouse. Discharge to [facility]. Goal: Individualization & Mutuality Outcome: Outcome [...] sit/sit to supine -- Bed Mobility Goal, Whitfield Level independent -- Bed Mobility Goal, Date [...] days -- Transfer Training Goal, Activity Type whx-ux-cccmb/yvyoa-ip-fpq -- Transfer Train Goal, Whitfield Level conditional independence -- Transfer Train Goal, [...] call cabello within reach, Hourly rounding by RN/SNOW GROOMER. Bed alarm / Chair alarm. Patient-specific fall [...] 08/15/2017 6:28 PM EST [facility] Operative Note Patient Name: Gregory Hoang : [id number] MR#: [id number] Case Date: 08/09/2017 Surgeon: Surgeon(s) and Role: [...] 2.5x80 5. Completion RLE angiogram 6. L BLOGS MANAGER angiogram 7. Mynx closure Precautions/Restrictions: fall, [...] other (see comments) (or swing bed) Pager: [phone] BASSAM ELIAS, PT 08/14/2017 Inpatient Physical Therapy [...] to Achieve by discharge Gait Training Goal, Whitfield Level conditional independence;set up required Gait Training [...] these facilities over the weekend except for [facility]. CM spoke with [facility] CM Drea Sandhu, VAMSI who said that they do not anticipate any beds over the weekend. Reviewed with patient/ that they need to be aware that patient will need to take the first bed offered at the facilities that they make referrals to. Their choices are: 1- [facility] PHONE: [phone] FAX: [phone] 2- [facility] ([facility]) [address] [place] [address] 3- [facility])([facility]) [address] [place] [address] I have discussed Medicare/Private Insurance [...] RS/CM on Wednesday to follow-up. Covering pager #[phone] for today. Plan of Care - Henrique [...] with additional findings of pseudoaneurysm on R BLOGS MANAGER and bilateral anterior tibial artery occlusions. [...] an outpatient once discharged. Have patient call [phone] to set up an appointment. Follow-up: Dermatology will sign-off for now. Please do not hesitate to contact us if you have any questions orconcerns. Impression and Recommendations discussed with primary team on 08/13/2017. Karo Henderson MD Resident in Dermatology Section of Dermatology, Department of Surgery [facility] Pager [phone] Patient seen and evaluated with staff Vertical Boring Mill Operator: Halima Cordero MD Section of Dermatology [facility] Level of Resident Supervision: Direct Supervision [...] 2.5x80 5. Completion RLE angiogram 6. L BLOGS MANAGER angiogram 7. Mynx closure Active Non-Hospital [...] home with home health ([facility] PT[facility]OT) Pager: [phone] YASIR TELLO OT 08/12/2017 Occupational Therapy Rehabilitation [...] 2.5x80 5. Completion RLE angiogram 6. L BLOGS MANAGER angiogram 7. Mynx closure Past Medical [...] with 24/7 assistance and maximal services) Pager: [phone] NICHOLAS MORA, PT 08/12/2017 Physical Therapy Rehabilitation [...] sit/sit to supine -- Bed Mobility Goal, Whitfield Level independent -- Bed Mobility Goal, Outcome Achieved -- goal ongoing Goal: Gait Training Goal Stand Alone Therapy Goal Outcome: Ongoing (Interventions Implemented as Appropriate) 08/11/17 1310 08/12/17 1510 Gait Training Goal Gait Training Goal, Date Established 08/11/17 -- Gait Training Goal, Time to Achieve 5 - 7 days -- Gait Training Goal, Whitfield Level conditional independence -- Gait Training Goal, [...] days -- Transfer Training Goal, Activity Type wai-up-xxuyl/excjr-kd-cwd -- Transfer Train Goal, Whitfield Level conditional independence -- Transfer Training Goal, [...] 08/11/2017 2:52 PM EST [facility] Operative Note Patient Name: Gregory Hoang : [id number] MR#: [id number] Case Date: 08/11/2017 Surgeon: Surgeon(s) and Role: [...] 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 Completion RLE angiogram 6. L BLOGS MANAGER angiogram 7. Mynx closure He is [...] Anticipated Discharge Disposition: inpatient rehabilitation facility Pager: [phone] LAWRENCE GONZALEZ, PT 08/11/2017 Physical Therapy Rehabilitation [...] to sit/sit to supine Bed Mobility Goal, Whitfield Level independent Goal: Gait Training Goal Stand Alone Therapy Goal Outcome: Ongoing (Interventions Implemented as Appropriate) 08/11/17 1310 Gait Training Goal Gait Training Goal, Date Established 08/11/17 Gait Training Goal, Time to Achieve 5 - 7 days Gait Training Goal, Whitfield Level conditional independence Gait Training Goal, Assist [...] 7 days Transfer Training Goal, Activity Type cfh-lb-rjyxi/vphdg-pr-pwo Transfer Train Goal, Whitfield Level conditional independence Plan of [facility] Annetta Sandoval RN - 08/11/2017 7:21 [...] call cabello within reach, Hourly rounding by RN/SNOW GROOMER. Bed alarm / Chair alarm. ? Patient-specific [...] the Past 30 Days: [facility] 07/20/2017 Anticipated Length Of Stay (If known): Expected Length of Hospitalization: 5-7 days2-3 days Current Decision-Making Capacity: Alert and oriented x 4 Advance Care Planning: on file Kisha Hoang [facility] [phone] Current Coping/Education/Information Needs: pt and spouse state [...] Health/Prescription Coverage: Primary Insurance: MEDICARE Secondary Insurance: [employer] [facility] Prescription Coverage: See above Preferred Pharmacy: [id number] Other: N/A Primary Care Provider: Lovely Vicente MD [phone] Patient/Caregiver Goals of Treatment: Patient plans to [...] of care planning. Kaitlin Saha RN Pager: [phone] Plan of Care - Melba Jaramillo RN [...] Overview Goal: Plan of Care Review 08/08/17 4054 Coping/Psychosocial Plan Of Care Reviewed With patient [...] call cabello within reach, Hourly rounding by RN/SNOW GROOMER. Bed alarm / Chair alarm. Patient-specific fall [...] at bedside and MD TEAM Carrying pager [phone] contacted (via Radio page) and notified of [...] Vitaliy Nobles MD [facility] CARDIOLOGY [place], [place] [address] (Wo rk) 05/28/2022 Appointment Cardiology Zulma Dolan MD [facility] [place], [place] [address] (Wo rk) 05/28/2022 Laboratory Appointment Lab 05/28/2022 Office Visit Cardiology Zulma Dolan MD [facility] [place] [address] Liz Poole PA [facility] [place] [address] 06/10/2022 Office Visit Dermatology Laura Scherer MD [facility] DR TEJA [facility] OLOGY [place], [place] [address] (Wo rk) documented as of [...] SCREEN Routine 08/09/2017 1:10 ([facility]/CGP/SHANDA) AM EST BASIC METABOLIC [...] Signature POC Glucose 160 65 - 199 [facility] mg/dL [facility] Comment: Supplemental ranges: <140 mg/dL before meals <180 mg/dL all other times of the day Specimen Anatomical Collection Method Collection Time Receive d Time (Source) Location / / Volume Laterality Blood specimen 08/16/2017 7:28 AM 018 7:28 (specimen) EST AM EST Yonathan Smith MD POINT OF CARE TEST ORDERABLE S Performing Organization Address City/State/[place] [address] (ABNORMAL) Differential, Automated (08/16/2017 5:08 AM EST) [facility] Method Time Signature Neutrophils % 73.9 % [facility] Neutr Abs (ANC) 5.37 1.70 - [facility] [address] [facility] x10(3)/[facility] LABORATORY Lymphocytes % 10.1 % [facility] Lymphocytes Abs 0.7 (L) 0.9 - 3.2 [facility] x10(3)/[facility] LABORATORY Monocytes % 10.1 % [facility] Monocyte Abs 0.7 0.3 - 0.9 [facility] x10(3)/[facility] LABORATORY Eosinophils % 5.1 % [facility] Eosinophils Abs 0.4 0.0 - 0.4 [facility] x10(3)/[facility] LABORATORY Basophils % 0.4 % [facility] Basophils Abs 0.0 0.0 - 0.1 [facility] x10(3)/[facility] LABORATORY Immature Gran % 0.40 [...] 0.00 - 0.04 x10(3)/[facility] LABORATORY Specimen Anatomical Collection Method Collection Time Receive d Time (Source) Location / / Volume Laterality Blood specimen 08/16/2017 5:08 AM 018 5:20 (specimen) EST AM EST Resulting Agency Comment Spec In Lab Yonathan Smith MD HEMATOLOGY ORDERABLES Performing Organization Address City/State/[place] [address] (ABNORMAL) Hemogram (08/16/2017 5:08 AM EST) Analysis Performed At Patho logist Time Signature WBC 7.3 4.0 - 9.5 [facility] x[facility] LABORATORY RBC 3.36 (L) 4.58 - [place] [address] [facility] x10(6)/[facility] LABORATORY Hemoglobin 9.7 (L) 13.7 - [place] 16.5 gm/dL [facility] Hematocrit 30.3 (L) 40.5 - [facility] 48.5 % [facility] MCV 90.2 82.9 - [facility] 93.1 [facility] LABORATORY MCH 28.9 27.5 - [place] 32.1 pg [facility] MCHC 32.0 32.0 - [place] 35.7 gm/dL [facility] Platelets 282 145 - 357 [facility] x10(3[facility] LABORATORY RDWSD 53.9 (H) 36.0 - [facility] 45.0 [facility] LABORATORY RDWCV 16.5 (H) 11.4 - [facility] SU 13.8 % [facility] MPV 9.0 7.6 - 12.9 [facility] LABORATORY nRBC % Auto 0.0 % [facility] nRBC Abs Auto 0.000 0.000 - [place] [address] [facility] x10(3)/[facility] LABORATORY Specimen Anatomical Collection Method Collection Time Receive d Time (Source) Location / / Volume Laterality Blood specimen 08/16/2017 5:08 AM 018 5:20 (specimen) EST AM EST Resulting Agency Comment Spec In Lab Yonathan Smith MD HEMATOLOGY ORDERABLES Performing Organization Address City/State/[place] [address] (ABNORMAL) Basic Metabolic Panel (non-fasting) (08/16/2017 5:08 AM EST) athologist Signature Glucose Lvl 141 65 - 199 [facility] mg/dL [facility] [...] or in patients with acute kidney failure. [email or web address] Specimen Anatomical Collection Method Collection Time Receive d Time (Source) Location / / Volume Laterality Blood specimen 08/16/2017 5:08 AM 018 5:20 (specimen) EST AM EST Resulting Agency Comment Spec In Lab Yonathan Smith MD CHEMISTRY ORDERABLES Performing Organization Address City/State/[place] [address] (ABNORMAL) Prothrombin Time (08/16/2017 [...] Smith MD HEMATOLOGY ORDERABLES Performing Organization Address City/[facility]/ZIP Code Phon e Number [address] POCT Glucose (08/16/2017 4:09 AM EST) athologist Signature POC Glucose 147 65 - 199 [facility] mg/dL [facility] [...] Address City/State/ZIP Code Phon e Number [address] POCT Glucose (08/15/2017 11:56 PM EST) athologist Signature POC Glucose 176 65 - 199 [facility] mg/dL [facility] Comment: Supplemental [...] Address City/State/ZIP [place] [address] POCT Glucose (08/15/2017 8:05 PM EST) athologist Signature POC Glucose 136 65 - 199 [place] mg/dL [facility] Comment: Supplemental [...] [facility]/ZIP [place] [address] (ABNORMAL) POCT Glucose (08/15/2017 4:50 PM EST) athologist Signature POC Glucose 232 (H) 65 - 199 [facility] mg/dL [facility] Comment: Supplemental [...] Address City/State/ZIP [place] [address] POCT Glucose (08/15/2017 12:04 PM EST) athologist Signature POC Glucose 135 65 - 199 [place] mg/dL [facility] Comment: Supplemental ranges: <140 mg/dL before meals <180 mg/dL all other times of the day Specimen Anatomical Collection Method Collection Time Receive d Time (Source) Location / / Volume Laterality Blood specimen 08/15/2017 12:04 8 (specimen) PM EST 12:04 PM EST Yonathan Smith MD POINT OF CARE TEST ORDERABLE S Performing Organization Address City/State/ZIP Code Phon e Number [place] [id number] [facility] LABORATORY Drive POCT Glucose (08/15/2017 7:36 AM EST) P athologist Signature POC Glucose 124 65 - 199 [facility] mg[facility]dL [facility] LABORATORY [...] Address City/State/ZIP Code Phon e Number [address] (ABNORMAL) Differential, Automated (08/15/2017 6:22 AM EST) Patholo gist Method Time Signature Neutrophils % 76.1 % [facility] LABORATORY Neutr Abs (ANC) 6.62 (H) 1.70 - [facility] 6.10 [facility] x10(3)/[facility] L LABORATORY Lymphocytes % 9.3 % [facility] LABORATORY Lymphocytes Abs 0.8 (L) 0.9 - 3.2 [facility] x10(3)/[facility] LABORATORY Monocytes % 9.4 % [facility] LABORATORY Monocyte Abs 0.8 0.3 - 0.9 [facility] x10(3)/[facility] LABORATORY Eosinophils % 4.0 % [facility] LABORATORY Eosinophils Abs 0.4 0.0 - 0.4 [facility] x10(3)/[facility] LABORATORY Basophils % 0.6 % [facility] LABORATORY Basophils Abs 0.0 0.0 - 0.1 [facility] x10(3)/[facility] LABORATORY Immature Gran % 0.60 % [facility] [...] Organization Address City/State/[place] [address] (ABNORMAL) Hemogram (08/15/2017 6:22 AM EST) Analysis Performed At Patho logist Time Signature WBC 8.7 4.0 - 9.5 [facility] x10(3)/[facility] LABORATORY RBC 3.21 (L) 4.58 - [facility] 5.[address] [facility] x10(6)/[facility] LABORATORY Hemoglobin 9.1 (L) 13.7 - [facility] 16.5 gm/dL [facility] LABORATORY Hematocrit 29.0 (L) 40.5 - [facility] 48.5 % [facility] LABORATORY MCV 90.3 82.9 - [facility] 93.1 [facility] LABORATORY MCH 28.3 27.5 - [facility] 32.1 pg [facility] LABORATORY MCHC 31.4 (L) 32.0 - [facility] 35.7 gm/dL [facility] LABORATORY Platelets 254 145 - 357 [facility] x10(3)/[facility] LABORATORY RDWSD 53.9 (H) 36.0 - [facility] 45.0 [facility] LABORATORY RDWCV 16.3 (H) 11.4 - [facility] 13.8 % [facility] LABORATORY MPV 8.8 7.6 - 12.9 [facility] LABORATORY nRBC % Auto 0.0 % [facility] LABORATORY nRBC Abs Auto 0.000 0.000 - [facility] [address] [facility] x10(3)/[facility] LABORATORY Specimen Anatomical Collection Method Collection Time Receive d Time (Source) Location / / Volume Laterality Blood specimen 08/15/2017 6:22 AM 018 6:33 (specimen) EST AM EST Resulting Agency Comment Spec In Lab Yonathan Smith MD HEMATOLOGY ORDERABLES Performing Organization Address City/State/[place] [address] (ABNORMAL) Basic Metabolic Panel (non-fasting) (08/15/2017 6:22 AM EST) athologist Signature Glucose Lvl 118 65 - 199 [facility] mg/dL [facility] LABORATORY [...] or in patients with acute kidney failure. [email or web address] Specimen Anatomical Collection Method Collection Time Receive d Time (Source) Location / / Volume Laterality Blood specimen 08/15/2017 6:22 AM 018 6:33 (specimen) EST AM EST Resulting Agency Comment Spec In Lab Yonathan Smith MD CHEMISTRY ORDERABLES Performing Organization Address City/[facility]/ZIP [place] [address] (ABNORMAL) Prothrombin Time (08/15/2017 [...] Smith MD HEMATOLOGY ORDERABLES Performing Organization Address City/[facility]/ZIP [place] [address] POCT Glucose (08/15/2017 4:33 AM EST) athologist Signature POC Glucose 164 65 - 199 [facility] mg/dL [facility] LABORATORY Comment: Supplemental [...] [facility]IP [place] [address] POCT Glucose (08/15/2017 12:12 AM EST) athologist Signature POC Glucose 89 65 - 199 [facility] mg/dL [facility] LABORATORY Comment: Supplemental [...] Address City/State/Z[place] [address] (ABNORMAL) POCT Glucose (08/14/2017 8:07 PM EST) athologist Signature POC Glucose 204 (H) 65 - 199 [facility] mg/dL [facility] LABORATORY Comment: Supplemental [...] Address City/State/ZIP [place] [address] POCT Glucose (08/14/2017 5:11 PM EST) athologist Signature POC Glucose 174 65 - 199 [facility] mg/dL [facility] LABORATORY Comment: Supplemental [...] Address City/State/ZIP [place] [address] POCT Glucose (08/14/2017 12:10 PM EST) athologist Signature POC Glucose 141 65 - 199 [facility] mg/dL [facility] LABORATORY Comment: Supplemental [...] Address City/State/ZIP Code Phon e Number [address] POCT Glucose (08/14/2017 8:07 AM EST) athologist [facility] POC Glucose 158 65 - 199 [facility] mg/dL [facility] LABORATORY [...] Address City/State/ZIP Code Phon e Number [address] (ABNORMAL) Differential, Automated (08/14/2017 4:52 AM EST) [facility] gist Method Time Signature Neutrophils % 78.6 % [facility] LABORATORY Neutr Abs (ANC) 7.70 (H) 1.70 - [facility] 6.[address] [facility] x10(3)/[facility] L LABORATORY Lymphocytes % 7.8 % [facility] LABORATORY Lymphocytes Abs 0.8 (L) 0.9 - 3.2 [facility] x10(3)/[facility] LABORATORY Monocytes % 8.8 % [facility] LABORATORY Monocyte Abs 0.9 0.3 - 0.9 [facility] x10(3)/[facility] LABORATORY Eosinophils % 4.0 % [facility] LABORATORY Eosinophils Abs 0.4 0.0 - 0.4 [facility] x10(3)/[facility] LABORATORY Basophils % 0.5 % [facility] LABORATORY Basophils Abs 0.0 0.0 - 0.1 [facility] x10(3)/[facility] LABORATORY Immature Gran [...] 0.00 - 0.04 x10(3)/[facility] LABORATORY Specimen Anatomical Collection Method Collection Time Receive d Time (Source) Location / / Volume Laterality Blood specimen 08/14/2017 4:52 AM 018 5:08 (specimen) EST AM EST Resulting Agency Comment Spec In Lab Yonathan Smith MD HEMATOLOGY ORDERABLES Performing Organization Address City/State/[place] [address] (ABNORMAL) Hemogram (08/14/2017 4:52 AM EST) Analysis Performed At Patho logist Time Signature WBC 9.8 (H) 4.0 - 9.5 [facility] x10(3)/[facility] LABORATORY RBC 3.32 (L) 4.58 - [facility] [address] [facility] x10(6)/[facility] LABORATORY Hemoglobin 9.5 (L) 13.7 - [facility] 16.5 gm/dL [facility] LABORATORY Hematocrit 30.3 (L) 40.5 - [facility] 48.5 % [facility] LABORATORY MCV 91.3 82.9 - [facility] 93.1 fL [facility] LABORATORY MCH 28.6 27.5 - [facility] 32.1 pg [facility] LABORATORY MCHC 31.4 (L) 32.0 - [facility] 35.7 gm/dL [facility] LABORATORY Platelets 263 145 - 357 [facility] x10(3)/[facility] LABORATORY RDWSD 54.8 (H) 36.0 - [facility] 45.0 [facility] LABORATORY RDWCV 16.5 (H) 11.4 - [facility] 13.8 % [facility] LABORATORY MPV 9.1 7.6 - 12.9 [facility] LABORATORY nRBC % Auto 0.0 % [facility] LABORATORY nRBC Abs Auto 0.000 0.000 - [facility] [address] [facility] x10(3)/[facility] LABORATORY Specimen Anatomical Collection Method Collection Time Receive d Time (Source) Location / / Volume Laterality Blood specimen 08/14/2017 4:52 AM 018 5:08 (specimen) EST AM EST Resulting Agency Comment Spec In Lab Yonathan Smith MD HEMATOLOGY ORDERABLES Performing Organization Address City/State/ZIP Code Phon e Number [address] (ABNORMAL) Prothrombin Time (08/14/2017 [...] Address City/State/[place] [address] (ABNORMAL) Basic Metabolic Panel (non-fasting) (08/14/2017 4:52 AM EST) P athologist Signature Glucose Lvl 135 65 - 199 [facility] mg/dL [facility] LABORATORY [...] or in patients with acute kidney failure. [email or web address] Specimen Anatomical Collection Method Collection Time Receive d Time (Source) Location / / Volume Laterality Blood specimen 08/14/2017 4:52 AM 018 5:08 (specimen) EST AM EST Resulting Agency Comment Spec In Lab Yonathan Smith MD CHEMISTRY ORDERABLES Performing Organization Address City/State/[place] [address] POCT Glucose (08/14/2017 3:56 AM EST) athologist Signature POC Glucose 135 65 - 199 [facility] mg/dL [facility] LABORATORY Comment: Supplemental [...] Address City/State/Z[place] [address] POCT Glucose (08/13/2017 11:13 PM EST) athologist Signature POC Glucose 118 65 - 199 [facility] mg/dL [facility] LABORATORY Comment: Supplemental [...] Address City/State/Z[place] [address] (ABNORMAL) POCT Glucose (08/13/2017 8:08 PM EST) athologist Signature POC Glucose 204 (H) 65 - 199 [facility] mg/dL [facility] LABORATORY Comment: Supplemental [...] Address City/State/ZIP Code Phon e Number [address] POCT Glucose (08/13/2017 4:02 PM EST) athologist Signature POC Glucose 145 65 - 199 [facility] mg/dL [facility] LABORATORY Comment: Supplemental [...] [facility] [place]/ZIP Code Phon e Number [address] POCT Glucose (08/13/2017 11:31 AM EST) athologist Signature POC Glucose 179 65 - 199 [facility] mg/dL [facility] LABORATORY Comment: Supplemental [...] [facility]/[place]IP [place] [address] (ABNORMAL) POCT Glucose (08/13/2017 10:16 AM EST) athologist Signature POC Glucose 211 (H) 65 - 199 [facility] mg/dL [facility] LABORATORY Comment: Supplemental [...] Address City/State/[place] [address] JULIAN, legs, multiple levels (08/13/2017 7:42 AM EST) Component Value Ref Test Analysis Performed At [facility] Range Method Time Signature VB Text Department: Vascular Surgery Lab VASCUBASE Report Patient: [id number] (GREGORY HOANG) CPT: 01704 ICD10: I99.8 Referring Physician: YONATHAN SMITH ?? [...] Signature POC Glucose 156 65 - 199 [facility] mg/dL [facility] LABORATORY Comment: Supplemental ranges: <140 mg/dL before meals <180 mg/dL all other times of the day Specimen Anatomical Collection Method Collection Time Receive d Time (Source) Location / / Volume Laterality Blood specimen 08/13/2017 7:33 AM 018 7:33 (specimen) EST AM EST Yonathan Smith MD POINT OF CARE TEST ORDERABLE S Performing Organization Address City/State/ZIP Code Phon e Number [place] [id number] HOSPITAL LABORATORY Drive (ABNORMAL) Differential, Automated (08/13/2017 5:33 AM EST) [facility] Method Time Signature Neutrophils % 77.8 % [facility] LABORATORY Neutr Abs (ANC) 7.83 (H) 1.70 - [facility] [address] [facility] x10(3)/[facility] L LABORATORY Lymphocytes % 8.4 % [facility] LABORATORY Lymphocytes Abs 0.8 (L) 0.9 - 3.2 [facility] x10(3)/[facility] LABORATORY Monocytes % 8.3 % [facility] LABORATORY Monocyte Abs 0.8 0.3 - 0.9 [facility] x10(3)/[facility] LABORATORY Eosinophils % 4.6 % [facility] LABORATORY Eosinophils Abs 0.5 (H) 0.0 - 0.4 [facility] x10(3)/[facility] LABORATORY Basophils % 0.5 % [facility] LABORATORY Basophils Abs 0.0 0.0 - 0.1 [facility] x10(3)/[facility] LABORATORY Immature Gran [...] 0.00 - 0.04 x10(3)/[facility] LABORATORY Specimen Anatomical Collection Method Collection Time Receive d Time (Source) Location / / Volume Laterality Blood specimen 08/13/2017 5:33 AM 018 6:04 (specimen) EST AM EST Resulting Agency Comment Spec In Lab Yonathan Smith MD HEMATOLOGY ORDERABLES Performing Organization Address City/State/Z[place] [address] (ABNORMAL) Hemogram (08/13/2017 5:33 AM EST) Analysis Performed At Patho logist Time Signature WBC 10.1 (H) 4.0 - 9.5 [facility] x[facility](3[facility] LABORATORY RBC 3.21 (L) 4.58 - [facility] [address] [facility] x10(6)/[facility] LABORATORY Hemoglobin 9.2 (L) 13.7 - [facility] 16.5 gm/dL [facility] LABORATORY Hematocrit 29.6 (L) 40.5 - [facility] 48.5 % [facility] LABORATORY MCV 92.2 82.9 - [facility] 93.1 [facility] LABORATORY MCH 28.7 27.5 - [facility] 32.1 pg [facility] LABORATORY MCHC 31.1 (L) 32.0 - [facility] 35.7 gm/dL [facility] LABORATORY Platelets 263 145 - 357 [facility] x10(3)/[facility] LABORATORY RDWSD 54.8 (H) 36.0 - [facility] 45.0 [facility] LABORATORY RDWCV 16.4 (H) 11.4 - [facility] 13.8 % [facility] LABORATORY MPV 9.2 7.6 - 12.9 [facility] LABORATORY nRBC % Auto 0.0 % [facility] LABORATORY nRBC Abs Auto 0.000 0.000 - [facility] [address] [facility] x10(3)/[facility] LABORATORY Specimen Anatomical Collection Method Collection Time Receive d Time (Source) Location / / Volume Laterality Blood specimen 08/13/2017 5:33 AM 018 6:04 (specimen) EST AM EST Resulting Agency Comment Spec In Lab Yonathan Smith MD HEMATOLOGY ORDERABLES Performing Organization Address City/State/Z[place] [address] (ABNORMAL) Prothrombin Time (08/13/2017 [...] Organization Address City/State/[place] [address] (ABNORMAL) Basic Metabolic Panel (non-fasting) (08/13/2017 5:33 AM EST) athologist Signature Glucose Lvl 126 65 - 199 [facility] mg/dL [facility] LABORATORY [...] or in patients with acute kidney failure. [email or web address] Specimen Anatomical Collection Method Collection Time Receive d Time (Source) Location / / Volume Laterality Blood specimen 08/13/2017 5:33 AM 018 6:04 (specimen) EST AM EST Resulting Agency Comment Spec In Lab Yonathan Smith MD CHEMISTRY ORDERABLES Performing Organization Address [facility] Phon e Number [address] POCT Glucose (08/13/2017 4:29 AM EST) athologist Signature POC Glucose 111 65 - 199 [facility] mg/dL [facility] LABORATORY [...] Performing Organization Address City/[facility] Phon e Number [address] POCT Glucose (08/12/2017 11:28 PM EST) athologist Signature POC Glucose 164 65 - 199 [facility] mg/dL [facility] LABORATORY Comment: Supplemental [...] Address City/State/Z[place] [address] (ABNORMAL) POCT Glucose (08/12/2017 7:40 PM EST) athologist Signature POC Glucose 209 (H) 65 - 199 [facility] mg/dL [facility] LABORATORY Comment: Supplemental [...] Address City/State/ZIP [place] [address] POCT Glucose (08/12/2017 4:24 PM EST) athologist Signature POC Glucose 161 65 - 199 [facility] mg/dL [facility] LABORATORY Comment: Supplemental [...] Address City/State/ZIP [place] [address] POCT Glucose (08/12/2017 12:00 PM EST) athologist Signature POC Glucose 167 65 - 199 [facility] mg/dL [facility] LABORATORY Comment: Supplemental ranges: <140 mg/dL before meals <180 mg/dL all other times of the day Specimen Anatomical Collection Method Collection Time Receive d Time (Source) Location / / Volume Laterality Blood specimen 08/12/2017 12:00 8 (specimen) PM EST 12:00 PM EST Yonathan Smith MD POINT OF CARE TEST ORDERABLE S Performing Organization Address City/State/[place] [address] [facility] LABORATORY Drive POCT Glucose (08/12/2017 7:25 AM EST) P athologist Signature POC Glucose 152 65 - 199 [facility] mg/dL [facility] LABORATORY Comment: Supplemental [...] Address City/State/ZIP Code Phon e Number [address] (ABNORMAL) Differential, Automated (08/12/2017 6:29 AM EST) Patholo gist Method Time Signature Neutrophils % 78.7 % [facility] LABORATORY Neutr Abs (ANC) 7.94 (H) 1.70 - [facility] [address] [facility] x10(3)/[facility] LABORATORY Lymphocytes % 8.8 % [facility] LABORATORY Lymphocytes Abs 0.9 0.9 - 3.2 [facility] x10(3)/[facility] LABORATORY Monocytes % 7.8 % [facility] LABORATORY Monocyte Abs 0.8 0.3 - 0.9 [facility] x10(3)/[facility] LABORATORY Eosinophils % 3.9 % [facility] LABORATORY Eosinophils Abs 0.4 0.0 - 0.4 [facility] x10(3)/[facility] LABORATORY Basophils % 0.3 % [facility] LABORATORY Basophils Abs 0.0 0.0 - 0.1 [facility] x10(3)/[facility] LABORATORY Immature Gran [...] Organization Address City/State/[place] [address] (ABNORMAL) Hemogram (08/12/2017 6:29 AM EST) Analysis Performed At Patho logist Time Signature WBC 10.1 (H) 4.0 - 9.5 [facility] x10(3)/[facility] LABORATORY RBC 3.02 (L) 4.58 - [facility] [address] [facility] x10(6)/[facility] LABORATORY Hemoglobin 8.7 (L) 13.7 - [facility]/dL [facility] LABORATORY Hematocrit 28.1 (L) 40.5 - [facility] 48.5 % [facility] LABORATORY MCV 93.0 82.9 - [facility] 93.1 [facility] LABORATORY MCH 28.8 27.5 - [facility] 32.1 pg [facility] LABORATORY MCHC 31.0 (L) 32.0 - [facility] 35.7 gm/dL [facility] LABORATORY Platelets 223 145 - 357 [facility] x10(3)/[facility] LABORATORY RDWSD 56.1 (H) 36.0 - [facility] 45.0 [facility] LABORATORY RDWCV 16.4 (H) 11.4 - [facility] appweevr 13.8 % [facility] LABORATORY MPV 9.0 7.6 - 12.9 [facility] LABORATORY nRBC % Auto 0.0 % [facility] LABORATORY nRBC Abs Auto 0.000 0.000 - [facility] [address] [facility] x10(3)/[facility] LABORATORY Specimen Anatomical Collection Method Collection Time Receive d Time (Source) Location / / Volume Laterality Blood specimen 08/12/2017 6:29 AM 018 6:38 (specimen) EST AM EST Resulting Agency Comment Spec In Lab Yonathan Smith MD HEMATOLOGY ORDERABLES Performing Organization Address [facility] [place] [address] (ABNORMAL) Prothrombin Time (08/12/2017 [...] Organization Address [facility] [place] [address] (ABNORMAL) Basic Metabolic Panel (non-fasting) (08/12/2017 6:29 AM EST) athologist Signature Glucose Lvl 151 65 - 199 [facility] mg/dL [facility] LABORATORY [...] or in patients with acute kidney failure. [email or web address] Specimen Anatomical Collection Method Collection Time Receive d Time (Source) Location / / Volume Laterality Blood specimen 08/12/2017 6:29 AM 018 6:38 (specimen) EST AM EST Resulting Agency Comment Spec In Lab Yonathan Smith MD CHEMISTRY ORDERABLES Performing Organization Address City/[facility]/ZIP [place] [address] POCT Glucose (08/12/2017 4:08 AM EST) P athologist Signature POC Glucose 181 65 - 199 [facility] mg/dL [facility] LABOR[facility]ORY Comment: Supplemental [...] [facility]ZIP [place] [address] (ABNORMAL) POCT Glucose (08/12/2017 12:17 AM EST) athologist Signature POC Glucose 221 (H) 65 - 199 [facility] mg/dL [facility] LABORATORY Comment: Supplemental [...] Address City/State/ZIP [place] [address] (ABNORMAL) POCT Glucose (08/11/2017 8:52 PM EST) athologist Signature POC Glucose 221 (H) 65 - 199 [facility] mg/dL [facility] Comment: Supplemental [...] Address City/State/ZIP [place] [address] POCT Glucose (08/11/2017 5:59 PM EST) athologist Signature POC Glucose 169 65 - 199 [facility] mg/dL [facility] LABORATORY Comment: Supplemental [...] Address City/State/Z[place] [address] (ABNORMAL) POCT Glucose (08/11/2017 4:08 PM EST) P athologist Signature POC Glucose 240 (H) 65 - 199 [facility] mg/dL [facility] [...] Address City/State/ZIP [place] [address] POCT Glucose (08/11/2017 12:04 PM EST) athologist Signature POC Glucose 182 65 - 199 [facility] mg/dL [facility] LAB[facility]ORY Comment: Supplemental [...] Address City/State/ZIP Code Phon e Number [address] POCT Glucose (08/11/2017 7:31 AM EST) athologist Signature POC Glucose 156 65 - 199 [facility] mg/dL [facility] LABORATORY Comment: Supplemental [...] Address City/State/Z[place] [address] (ABNORMAL) Differential, Automated (08/11/2017 6:16 AM EST) [facility] gist Method Time Signature Neutrophils % 83.7 % [facility] LABORATORY Neutr Abs (ANC) 10.76 (H) 1.70 - [facility] [address] [facility] x10(3)/[facility] LABORATORY Lymphocytes % 6.0 % [facility] LABORATORY Lymphocytes Abs 0.8 (L) 0.9 - 3.2 [facility] x10(3)/[facility] LABORATORY Monocytes % 7.5 % [facility] LABORATORY Monocyte Abs 1.0 (H) 0.3 - 0.9 [facility] x10(3)/[facility] LABORATORY Eosinophils % 2.0 % [facility] LABORATORY Eosinophils Abs 0.3 0.0 - 0.4 [facility] x10(3)/[facility] LABORATORY Basophils % 0.3 % [facility] LABORATORY Basophils Abs 0.0 0.0 - 0.1 [place] 631050(3)/[facility] LABORATORY Immature Gran % [...] Organization Address City/State/[place] [address] (ABNORMAL) Hemogram (08/11/2017 6:16 AM EST) Analysis Performed At [facility] Time Signature WBC 12.9 (H) 4.0 - 9.5 [facility] x10(3)/[facility] LABORATORY RBC 3.28 (L) 4.58 - [place] [address] [facility] x10(6)/[facility] LABORATORY Hemoglobin 9.5 (L) 13.7 - [place] 16.5 gm/dL [facility] LABORATORY Hematocrit 29.8 (L) 40.5 - [place] 48.5 % [facility] LABORATORY MCV 90.9 82.9 - [facility] 93.1 [facility] LABORATORY MCH 29.0 27.5 - [place] DAV[place] 32.1 pg [facility] LABORATORY MCHC 31.9 (L) 32.0 - [place] SU 35.7 gm/dL [facility] LABORATORY Platelets 236 145 - 357 [facility] x10(3)/[facility] LABORATORY RDWSD 53.5 (H) 36.0 - [facility] 45.0 [facility] LABORATORY RDWCV 16.3 (H) 11.4 - [facility] SU 13.8 % [facility] LABORATORY MPV 8.8 7.6 - 12.9 [facility] LABORATORY nRBC % Auto 0.0 % [facility] LABORATORY nRBC Abs Auto 0.000 0.000 - [place] SU [address] [facility] x10(3)/[facility] LABORATORY Specimen Anatomical Collection Method Collection Time Receive d Time (Source) Location / / Volume Laterality Blood specimen 08/11/2017 6:16 AM 018 6:24 (specimen) EST AM EST Resulting Agency Comment Spec In Lab Yonathan Smith MD HEMATOLOGY ORDERABLES Performing Organization Address City/State/[place] [address] (ABNORMAL) Prothrombin Time (08/11/2017 [...] Organization Address City/State/[place] [address] Basic Metabolic Panel (non-fasting) (08/11/2017 6:16 AM EST) athologist Signature Glucose Lvl 139 65 - 199 [facility] mg/dL [facility] LABORATORY [...] or in patients with acute kidney failure. [email or web address] Specimen Anatomical Collection Method Collection Time Receive d Time (Source) Location / / Volume Laterality Blood specimen 08/11/2017 6:16 AM 018 6:24 (specimen) EST AM EST Resulting Agency Comment Spec In Lab Yonathan Smith MD CHEMISTRY ORDERABLES Performing Organization Address City/State/ZIP Code Phon e Number [address] POCT Glucose (08/11/2017 4:07 AM EST) athologist Signature POC Glucose 162 65 - 199 [place] mg/dL [facility] LABORATORY Comment: Supplemental [...] Address City/State/ZIP Code Phon e Number [address] POCT Glucose (08/10/2017 11:59 PM EST) athologist Signature POC Glucose 166 65 - 199 [place] mg/dL [facility] LABORATORY Comment: Supplemental [...] Address City/State/ZIP Code Phon e Number [address] POCT Glucose (08/10/2017 8:12 PM EST) athologist Signature POC Glucose 156 65 - 199 [place] mg/dL [facility] LABORATORY Comment: Supplemental [...] Address City/State/Z[place] [address] (ABNORMAL) POCT Glucose (08/10/2017 4:42 PM EST) P athologist Signature POC Glucose 211 (H) 65 - 199 [facility] LABORATORY Comment: Supplemental [...] Address City/State/ZIP [place] [address] (ABNORMAL) Differential, Automated (08/10/2017 2:30 PM EST) Patholo gist Method Time Signature Neutrophils % 87.6 % [facility] LABORATORY Neutr Abs (ANC) 9.90 (H) 1.70 - [facility] [address] [facility] x10(3)/[facility] L LABORATORY Lymphocytes % 4.3 % [facility] LABORATORY Lymphocytes Abs 0.5 (L) 0.9 - 3.2 [facility] x10(3)/[facility] LABORATORY Monocytes % 6.0 % [facility] LABORATORY Monocyte Abs 0.7 0.3 - 0.9 [facility] x10(3)/[facility] LABORATORY Eosinophils % 1.1 % [facility] LABORATORY Eosinophils Abs 0.1 0.0 - 0.4 [facility] x10(3)/[facility] LABORATORY Basophils % 0.4 % [facility] LABORATORY Basophils Abs 0.0 0.0 - 0.1 [facility] x10(3)/[facility] LABORATORY Immature Gran % 0.60 % HOLD[facility] [...] Organization Address City/State/[place] [address] (ABNORMAL) Hemogram (08/10/2017 2:30 PM EST) Analysis Performed At Patho logist Time Signature WBC 11.3 (H) 4.0 - 9.5 [facility] x10(3)/[facility] LABORATORY RBC 3.13 (L) 4.58 - [facility] 5.[address] [facility] x10(6)/[facility] LABORATORY Hemoglobin 8.9 (L) 13.7 - [facility] 16.5 gm/dL [facility] LABORATORY Hematocrit 28.4 (L) 40.5 - [facility] 48.5 % [facility] LABORATORY MCV 90.7 82.9 - [facility] 93.1 [facility] LABORATORY MCH 28.4 27.5 - [place] SU 32.1 pg [facility] LABORATORY MCHC 31.3 (L) 32.0 - [facility] SU 35.7 gm/dL [facility] LABORATORY Platelets 213 145 - 357 [facility] x10(3)/[facility] LABORATORY RDWSD 53.7 (H) 36.0 - [facility] 45.0 [facility] RDWCV 16.4 (H) 11.4 - [facility] SU 13.8 % [facility] LABORATORY MPV 8.9 7.6 - 12.9 [facility] LABORATORY nRBC % Auto 0.0 % [facility] LABORATORY nRBC Abs Auto 0.000 0.000 - [facility] 0.[address] [facility] x10(3)/[facility] LABORATORY Specimen Anatomical Collection Method Collection Time Receive d Time (Source) Location / / Volume Laterality Blood specimen 08/10/2017 2:30 PM 018 2:48 (specimen) EST PM EST Resulting Agency Comment Spec In Lab Yonathan Smith MD HEMATOLOGY ORDERABLES Performing Organization Address City/State/ZIP Code Phon e Number [address] (ABNORMAL) POCT Glucose (08/10/2017 1:50 PM EST) P athologist Signature POC Glucose 243 (H) 65 - 199 [facility] mg/dL [facility] LABORATORY Comment: Supplemental [...] [facility]/ZIP [place] [address] POCT Glucose (08/10/2017 11:21 AM EST) P athologist Signature POC Glucose 156 65 - 199 [facility] mg/dL [facility] LABORATORY [...] Address City/State/ZIP [place] [address] (ABNORMAL) Differential, Automated (08/10/2017 10:28 AM EST) Patholo gist Method Time Signature Neutrophils % 85.3 % [facility] LABORATORY Neutr Abs (ANC) 9.43 (H) 1.70 - [facility] [address] [facility] x10(3)/[facility] L LABORATORY Lymphocytes % 5.5 % [facility] LABORATORY Lymphocytes Abs 0.6 (L) 0.9 - 3.2 [facility] x10(3)/[facility] LABORATORY Monocytes % 5.9 % [facility] LABORATORY Monocyte Abs 0.6 0.3 - 0.9 [facility] x10(3)/[facility] LABORATORY Eosinophils % 2.1 % [facility] LABORATORY Eosinophils Abs 0.2 0.0 - 0.4 [facility] x10(3)/[facility] LABORATORY Basophils % 0.4 % [facility] LABORATORY Basophils Abs 0.0 0.0 - 0.1 [facility] x10(3)/[facility] LABORATORY Immature Gran % 0.80 % HOLDEN [...] Organization Address City/State/[place] [address] (ABNORMAL) Hemogram (08/10/2017 10:28 AM EST) Analysis Performed At Patho logist Time Signature WBC 11.0 (H) 4.0 - 9.5 [facility] x10(3)/[facility] LABORATORY RBC 3.02 (L) 4.58 - [place] [address] [facility] x10(6)/[facility] LABORATORY Hemoglobin 8.8 (L) 13.7 - [place] 16.5 gm/dL [facility] LABORATORY Hematocrit 28.1 (L) 40.5 - [place] 48.5 % [facility] LABORATORY MCV 93.0 82.9 - [facility] 93.1 [facility] LABORATORY MCH 29.1 27.5 - [place] 32.1 pg [facility] LABORATORY MCHC 31.3 (L) 32.0 - [place] 35.7 gm/dL [facility] LABORATORY Platelets 207 145 - 357 [facility] x10(3)/[facility] LABORATORY RDWSD 55.3 (H) 36.0 - [facility] 45.0 [facility] LABORATORY RDWCV 16.4 (H) 11.4 - [facility] 13.8 % [facility] LABORATORY MPV 9.0 7.6 - 12.9 [facility] LABORATORY nRBC % Auto 0.0 % [facility] LABORATORY nRBC Abs Auto 0.000 0.000 - [place] [address] [facility] x10(3)/[facility] LABORATORY Specimen Anatomical Collection Method Collection Time Receive d Time (Source) Location / / Volume Laterality Blood specimen 08/10/2017 10:28 8 (specimen) AM EST 10:35 AM EST Resulting Agency Comment Spec In Lab Yonathan Smith MD HEMATOLOGY ORDERABLES Performing Organization Address City/State/[place] [address] VS Angiogram/intervention (vascular) (08/10/2017 [...] 2.5x80 5. Completion RLE angiogram 6. L BLOGS MANAGER angiogram 7. 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 L BLOGS MANAGER access in the distal L BLOGS MANAGER. - Closure device: Mynx Technical Procedure: [...] for a 45cm 5F Destination. V18 and Attalla a nd QuickCross catheters were used to [...] bifurcation. Access appeared in the distal R BLOGS MANAGER. Closure and sheath removal was performed [...] 2.5x80 5. Completion RLE angiogram 6. L BLOGS MANAGER angiogram 7. 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 L BLOGS MANAGER access in the distal L BLOGS MANAGER. - Closure device: Mynx Technical Procedure: [...] for a 45cm 5F Destination. V18 and Attalla a nd QuickCross catheters were used to [...] bifurcation. Access appeared in the distal R BLOGS MANAGER. Closure and sheath removal was performed [...] (ABNORMAL) Differential, Automated (08/10/2017 5:50 AM EST) [facility] gist Method Time Signature Neutrophils % 80.1 % [facility] LABORATORY Neutr Abs (ANC) 9.01 (H) 1.70 - [facility] [address] [facility] x10(3)/[facility] L LABORATORY Lymphocytes % 8.8 % [facility] LABORATORY Lymphocytes Abs 1.0 0.9 - 3.2 [facility] x10(3)/[facility] LABORATORY Monocytes % 8.3 % [facility] LABORATORY Monocyte Abs 0.9 0.3 - 0.9 [facility] x10(3)/[facility] LABORATORY Eosinophils % 2.0 % [facility] LABORATORY Eosinophils Abs 0.2 0.0 - 0.4 [facility] x10(3)/[facility] LABORATORY Basophils % 0.4 % [facility] LABORATORY Basophils Abs 0.0 0.0 - 0.1 [facility] x10(3)/[facility] LABORATORY Immature Gran [...] Organization Address City/State/[place] [address] (ABNORMAL) Hemogram (08/10/2017 5:50 AM EST) Analysis Performed At Patho logist Time Signature WBC 11.3 (H) 4.0 - 9.5 [facility] x10(3)/[facility] LABORATORY RBC 3.15 (L) 4.58 - [facility] [address] [facility] x10(6)/[facility] LABORATORY Hemoglobin 8.9 (L) 13.7 - [facility] 16.5 gm/dL [facility] LABORATORY Hematocrit 29.0 (L) 40.5 - [facility] SU 48.5 % [facility] LABORATORY MCV 92.1 82.9 - [facility] fL [facility] LABORATORY MCH 28.3 27.5 - [place] 32.1 pg [facility] LABORATORY MCHC 30.7 (L) 32.0 - [facility] 35.7 gm/dL [facility] LABORATORY Platelets 231 145 - 357 [facility] x10(3)/[facility] LABORATORY RDWSD 53.9 (H) 36.0 - [facility] 45.0 [facility] LABORATORY RDWCV 16.2 (H) 11.4 - [facility] 13.8 % [facility] LABORATORY MPV 8.7 7.6 - 12.9 [facility] LABORATORY nRBC % Auto 0.0 % [facility] LABORATORY nRBC Abs Auto 0.000 0.000 - [facility] [address] [facility] x10(3)/[facility] LABORATORY Specimen Anatomical Collection Method Collection Time Receive d Time (Source) Location / / Volume Laterality Blood specimen 08/10/2017 5:50 AM 018 5:59 (specimen) EST AM EST Resulting Agency Comment Spec In Lab Yonathan Smith MD HEMATOLOGY ORDERABLES Performing Organization Address City/State/[place] [address] (ABNORMAL) Basic Metabolic Panel (non-fasting) (08/10/2017 5:50 AM EST) P athologist Signature Glucose Lvl 135 65 - 199 [facility] mg/dL [facility] LABORATORY [...] [facility] LABORATORY Estimated GFR >60 >=60 [place] DAV[place] [facility] LABORATORY Comment: The reported eGFR should be multiplied b y 1.2 for patients. The MDRD is not an appropriate measure o f renal function for patients with body mass extremes or in patients with acute kidney failure. [email or web address] [email or web address] Specimen Anatomical Collection Method Collection Time Receive d Time (Source) Location / / Volume Laterality Blood specimen 08/10/2017 5:50 AM 018 5:59 (specimen) EST AM EST Resulting Agency Comment Spec In Lab Yonathan Smith MD CHEMISTRY ORDERABLES Performing Organization Address [facility] Code Phon e Number [address] (ABNORMAL) Prothrombin Time (08/10/2017 [...] Smith MD HEMATOLOGY ORDERABLES Performing Organization Address City/[facility] [place] [address] (ABNORMAL) POCT Glucose (08/10/2017 4:01 AM EST) P athologist Signature POC Glucose 206 (H) 65 - 199 [facility] mg/dL [facility] LABORATORY Comment: Supplemental [...] Address City/State/ZIP [place] [address] POCT Glucose (08/10/2017 2:01 AM EST) athologist Signature POC Glucose 188 65 - 199 [place] mg/dL [facility] LABORATORY Comment: Supplemental [...] Address City/State/Z[place] [address] (ABNORMAL) POCT Glucose (08/09/2017 11:42 PM EST) athologist Signature POC Glucose 283 (H) 65 - 199 [place] mg/dL [facility] LABORATORY Comment: Supplemental [...] Address City/State/ZIP Code Phon e Number [address] POCT Glucose (08/09/2017 8:55 PM EST) athologist Signature POC Glucose 182 65 - 199 [place] mg/dL [facility] LABORATORY Comment: Supplemental [...] Address City/State/ZIP [place] [address] (ABNORMAL) APTT (08/09/2017 6:42 [...] Address City/State/ZIP [place] [address] POCT Glucose (08/09/2017 4:41 PM EST) athologist Signature POC Glucose 195 65 - 199 [facility] mg/dL [facility] LABORATORY Comment: Supplemental [...] [facility] [place]/ZIP [place] [address] POCT Glucose (08/09/2017 12:29 PM EST) athologist Signature POC Glucose 140 65 - 199 [facility] mg/dL [facility] LABORATORY Comment: Supplemental [...] [facility] [place]/ZIP Code Phon e Number [address] POCT Glucose (08/09/2017 9:59 AM EST) P athologist Signature POC Glucose 135 65 - 199 [facility] mg/dL [facility] LABORATORY Comment: Supplemental [...] [facility]/[place]IP [place] [address] Specimen to Pathology (08/09/2017 [...] [facility]/[place] [address] Surgical Pathology Report (08/09/2017 8:40 AM EST) Component Value Ref Test Analysis Performed At Patholo gist Range Method Time Signature Surgical [id number] ? [facility]; [facility] [...] Henrique Flower Verified: ??08/13/2017 ?Pathologist Performed at: ??-[facility] Dept. of Pathology, [place], [place] CLINICAL INFORMATION Specimen Submitted: A - [...] Organization Address City/State/ZIP Code Phon e Number [place] [id number] HOSPITAL LAB[address]ORY Drive Anaerobic Culture (08/09/2017 8:30 AM EST) [facility] Method Time Signature Anaerobic No anaerobic [facility] Culture organisms [facility] LABORATORY Specimen [...] - GENERAL ORDER ROBSON Performing Organization Address City/[facility]/ZIP Code Phon e Number [place] [id number] HOSPITAL LABORATORY Drive (ABNORMAL) Abscess/Wound Aspirate Culture (08/09/2017 8:30 AM EST) [facility] Method Time Signature Abscess/Wound Moderate mixed [facility] Aspirate bacterial [place] Culture morphotypes [facility] normal LABORATORY cutaneous leroy (A) Gram Stain Rare White Blood Cells [place] Few Gram Positive Cocci in pairs [place] () [facility] LABORATORY Organism Gram Positive [place] Cocci in pairs [place] () [facility] LABORATORY Specimen Anatomical Collection [...] Organization Address City/State/[place] [address] POCT Glucose (08/09/2017 4:28 AM EST) P athologist Signature POC Glucose 128 65 - 199 [facility] mg/dL [facility] LABORATORY [...] Address City/State/ZIP [place] [address] ABORH Recheck Status (08/09/2017 1:10 AM EST) [facility] Method Time Signature ABORH Type Completed [facility] LABORATORY Specimen Anatomical Collection Method Collection Time Receive d Time (Source) Location / / Volume Laterality Blood specimen 08/09/2017 1:10 AM 018 1:35 (specimen) EST AM EST Resulting Agency Comment Spec In Lab Yonathan Smith MD BLOOD BANK ORDERABLES Performing Organization Address City/[facility]/ZIP [place] [address] Antibody screen (08/09/2017 1:10 AM EST) [facility] Method Time Signature Ab Screen Negative [facility] LABORATORY Expires at 08/12/2017 [facility] [id number] on: [facility] LABORATORY Specimen Anatomical Collection Method Collection Time Receive d Time (Source) Location / / Volume Laterality Blood specimen 08/09/2017 1:10 AM 018 1:35 (specimen) EST AM EST Resulting Agency Comment Spec In Lab Yonathan Smith MD BLOOD BANK ORDERABLES Performing Organization Address City/State/ZIP [place] [address] ABO/Rh Typing (08/09/2017 1:10 [...] Address City/State/[place] [address] (ABNORMAL) APTT (08/09/2017 1:10 [...] Address City/State/Z[place] [address] (ABNORMAL) Differential, Automated (08/09/2017 1:10 AM EST) Patholo gist Method Time Signature Neutrophils % 76.2 % [facility] LABORATORY Neutr Abs (ANC) 8.59 (H) 1.70 - [facility] [address] [facility] x10(3)/[facility] LABORATORY Lymphocytes % 11.0 % [facility] LABORATORY Lymphocytes Abs 1.2 0.9 - 3.2 [facility] x10(3)/[facility] LABORATORY Monocytes % 8.4 % [facility] LABORATORY Monocyte Abs 1.0 (H) 0.3 - 0.9 [facility] x10(3)/[facility] LABORATORY Eosinophils % 3.5 % [facility] LABORATORY Eosinophils Abs 0.4 0.0 - 0.4 [facility] x10(3)/[facility] LABORATORY Basophils % 0.5 % [facility] LABORATORY Basophils Abs 0.1 0.0 - 0.1 [facility] x10(3)/[facility] LABORATORY Immature Gran [...] Organization Address City/State/[place] [address] (ABNORMAL) Hemogram (08/09/2017 1:10 AM EST) Analysis Performed At Patho logist Time Signature WBC 11.3 (H) 4.0 - 9.5 [facility] x10(3)/[facility] LABORATORY RBC 3.47 (L) 4.58 - [facility] [address] [facility] x10(6)/[facility] LABORATORY Hemoglobin 10.0 (L) 13.7 - [facility] LABORATORY Hematocrit 31.9 (L) 40.5 - [facility] 48.5 % [facility] LABORATORY MCV 91.9 82.9 - [facility] 93.1 [facility] LABORATORY MCH 28.8 27.5 - [facility] SU 32.1 pg [facility] LABORATORY MCHC 31.3 (L) 32.0 - [facility] 35.7 gm/dL [facility] LABORATORY Platelets 234 145 - 357 [facility] x10(3)/[facility] LABORATORY RDWSD 54.0 (H) 36.0 - [facility] SU 45.0 [facility] LABORATORY RDWCV 16.2 (H) 11.4 - [facility] SU 13.8 % [facility] LABORATORY MPV 8.7 7.6 - 12.9 [facility] LABORATORY nRBC % Auto 0.0 % [facility] LABORATORY nRBC Abs Auto 0.000 0.000 - [facility] [address] [facility] x10(3)/[facility] LABORATORY Specimen Anatomical Collection Method Collection Time Receive d Time (Source) Location / / Volume Laterality Blood specimen 08/09/2017 1:10 AM 018 1:19 (specimen) EST AM EST Resulting Agency Comment Spec In Lab Yonathan Smith MD HEMATOLOGY ORDERABLES Performing Organization Address City/[facility]/ZIP [place] [address] (ABNORMAL) Prothrombin Time (08/09/2017 1:10 AM EST) athologist Signature PT 16.0 (H) 11.8 - 14.0 [facility] [...] Smith MD HEMATOLOGY ORDERABLES Performing Organization Address City/[facility]/ZIP [place] [address] HOSPITAL [address] (ABNORMAL) Basic Metabolic Panel (non-fasting) (08/09/2017 1:10 AM EST) athologist Signature Glucose Lvl 108 65 - 199 [facility] mg/dL [facility] LABORATORY [...] or in patients with acute kidney failure. [email or web address] Specimen Anatomical Collection Method Collection Time Receive d Time (Source) Location / / Volume Laterality Blood specimen 08/09/2017 1:10 AM 018 1:19 (specimen) EST AM EST Resulting Agency Comment Spec In Lab Yonathan Smith MD CHEMISTRY ORDERABLES Performing Organization Address City/[facility]/[place] [address] POCT Glucose (08/09/2017 12:05 AM EST) P athologist Signature POC Glucose 128 65 - 199 [facility] mg/dL [facility] LABORATORY Comment: Supplemental [...] Address City/State/ZIP [place] [address] (ABNORMAL) POCT Glucose (08/08/2017 7:36 PM EST) athologist Signature POC Glucose 215 (H) 65 - 199 [facility] mg/dL [facility] LABORATORY Comment: Supplemental [...] [facility]/ZIP Code Phon e Number [address] (ABNORMAL) POCT Glucose (08/08/2017 6:23 PM EST) athologist Signature POC Glucose 216 (H) 65 - 199 [facility] mg/dL [facility] LABOR[facility]ORY Comment: Supplemental [...] [facility]/[place]IP [place] [address] (ABNORMAL) APTT (08/08/2017 6:00 [...] Address City/State/ZIP Code Phon e Number [address] POCT Glucose (08/08/2017 4:42 PM EST) athologist Signature POC Glucose 78 65 - 199 [facility] mg/dL [facility]OR[facility] Comment: Supplemental [...] [facility]/[place] [address] (ABNORMAL) POCT Glucose (08/08/2017 4:01 PM EST) athologist Signature POC Glucose 58 (L) 65 - 199 [facility] mg/dL [facility]OR[facility] Comment: Supplemental [...] Address City/State/ZIP [place] [address] POCT Glucose (08/08/2017 11:51 AM EST) athologist Signature POC Glucose 90 65 - 199 [facility] mg/dL [facility] Comment: Supplemental ranges: <140 mg/dL before meals <180 mg/dL all other times of the day Specimen Anatomical Collection Method Collection Time Receive d Time (Source) Location / / Volume Laterality Blood specimen 08/08/2017 11:51 8 (specimen) AM EST 11:51 AM EST Yonathan Smith MD POINT OF CARE TEST ORDERABLE S Performing Organization Address [facility]/ZIP [place] [address] (ABNORMAL) APTT (08/08/2017 10:27 [...] Smith MD HEMATOLOGY ORDERABLES Performing Organization Address City/[facility]/ZIP [place] [address] POCT Glucose (08/08/2017 8:02 AM EST) athologist Signature POC Glucose 178 65 - 199 [facility] mg/dL [facility] Comment: Supplemental [...] [facility]/[place] [address] (ABNORMAL) APTT (08/08/2017 4:51 AM EST) athologist Signature PTT >160 25 - 35 [facility] (Critical) sec [facility]OR[facility] Comment: [...] Organization Address City/State/[place] [address] (ABNORMAL) Differential, Automated (08/08/2017 4:51 AM EST) [facility] Method Time Signature Neutrophils % 77.9 % [facility] LABORATORY Neutr Abs (ANC) 8.17 (H) 1.70 - [facility] [address] [facility] x10(3)/[facility] LABORATORY Lymphocytes % 10.3 % [facility] LABORATORY Lymphocytes Abs 1.1 0.9 - 3.2 [facility] x10(3)/[facility] LABORATORY Monocytes % 7.0 % [facility] LABORATORY Monocyte Abs 0.7 0.3 - 0.9 [facility] x10(3)/[facility] LABORATORY Eosinophils % 3.6 % [facility] LABORATORY Eosinophils Abs 0.4 0.0 - 0.4 [facility] x10(3)[facility] LABORATORY Basophils % 0.5 % [facility] LABORATORY Basophils Abs 0.0 0.0 - 0.1 [facility] x10(3)[facility] LABORATORY Immature Gran % 0.70 [...] Organization Address City/State/[place] [address] (ABNORMAL) Hemogram (08/08/2017 4:51 AM EST) Analysis Performed At Patho logist Time Signature WBC 10.5 (H) 4.0 - 9.5 [facility] x10(3)/[facility] LABORATORY RBC 3.27 (L) 4.58 - [facility].[address] [facility] x10(6)/[facility] LABORATORY Hemoglobin 9.3 (L) 13.7 - [facility] 16.5 gm/dL [facility] LAB[facility]ORY Hematocrit 30.3 (L) 40.5 - [facility] 48.5 % [facility] LABORATORY MCV 92.7 82.9 - [facility] 93.1 [facility] LABORATORY MCH 28.4 27.5 - [facility] 32.1 pg [facility] LABORATORY MCHC 30.7 (L) 32.0 - [facility] 35.7 gm/dL [facility] LABORATORY Platelets 252 145 - 357 [facility] x10(3)/[facility] LABORATORY RDWSD 54.6 (H) 36.0 - [facility] 45.0 [facility] LABORATORY RDWCV 16.2 (H) 11.4 - [facility] 13.8 % [facility] LABORATORY MPV 9.1 7.6 - 12.9 [facility] LABORATORY nRBC % Auto 0.0 % [facility] LABORATORY nRBC Abs Auto 0.000 0.000 - [facility] [address] [facility] x10(3)/[facility] LABORATORY Specimen Anatomical Collection Method Collection Time Receive d Time (Source) Location / / Volume Laterality Blood specimen 08/08/2017 4:51 AM 018 5:14 (specimen) EST AM EST Resulting Agency Comment Spec In Lab Yonathan Smith MD HEMATOLOGY ORDERABLES Performing Organization Address City/[facility]/ZIP [place] [address] (ABNORMAL) Prothrombin Time (08/08/2017 [...] Address City/State/[place] [address] (ABNORMAL) Basic Metabolic Panel (non-fasting) (08/08/2017 4:51 AM EST) P athologist Signature Glucose Lvl 229 (H) 65 - 199 [facility] mg/dL [facility] LABORATORY [...] or in patients with acute kidney failure. [email or web address] Specimen Anatomical Collection Method Collection Time Receive d Time (Source) Location / / Volume Laterality Blood specimen 08/08/2017 4:51 AM 018 5:14 (specimen) EST AM EST Resulting Agency Comment Spec In Lab Yonathan Smith MD CHEMISTRY ORDERABLES Performing Organization Address City/[facility]/ZIP Code Phon e Number [address] POCT Glucose (08/08/2017 4:20 AM EST) athologist Signature POC Glucose 193 65 - 199 [facility] mg/dL [facility] LABORATORY [...] [facility] [place]/ZIP Code Phon e Number [address] POCT Glucose (08/07/2017 11:11 PM EST) athologist Signature POC Glucose 124 65 - 199 [facility] mg/dL [facility] LABORATORY [...] [facility]/[place] [address] (ABNORMAL) APTT (08/07/2017 10:18 [...] Smith MD HEMATOLOGY ORDERABLES Performing Organization Address City/[facility]/ZIP [place] [address] POCT Glucose (08/07/2017 8:10 PM EST) athologist Signature POC Glucose 140 65 - 199 [facility] mg/dL [facility]OR[facility]ORY Comment: Supplemental [...] [facility]/ZIP [place] [address] POCT Glucose (08/07/2017 5:27 PM EST) athologist Signature POC Glucose 187 65 - 199 [facility] Comment: Supplemental [...] [facility]/ZIP Code Phon e Number [address] POCT Glucose (08/07/2017 3:29 PM EST) athologist Signature POC Glucose 86 65 - 199 [facility]dL [facility] Comment: Supplemental ranges: <140 mg/dL before meals <180 mg/dL all other times of the day Specimen Anatomical Collection Method Collection Time Receive d Time (Source) Location / / Volume Laterality Blood specimen 08/07/2017 3:29 PM 018 3:29 (specimen) EST PM EST Yonathan Smith MD POINT OF CARE TEST ORDERABLE S Performing Organization Address [facility]/ZIP Code Phon e Number [address] (ABNORMAL) APTT (08/07/2017 2:50 [...] Smith MD HEMATOLOGY ORDERABLES Performing Organization Address City/[facility]/ZIP Code Phon e Number [address] (ABNORMAL) POCT Glucose (08/07/2017 2:23 PM EST) athologist Signature POC Glucose 55 (L) 65 - 199 [facility] mg/dL [facility] LABORATORY [...] Address City/State/ZIP Code Phon e Number [address] POCT Glucose (08/07/2017 12:08 PM EST) athologist Signature POC Glucose 77 65 - 199 [facility] mg/dL [facility] LABORATORY [...] Address City/State/ZIP Code Phon e Number [address] (ABNORMAL) Differential, Automated (08/07/2017 7:30 AM EST) [facility] gist Method Time Signature Neutrophils % 73.8 % [facility] LABORATORY Neutr Abs (ANC) 7.17 (H) 1.70 - [facility] [address] [facility] x10(3)/[facility] LABORATORY Lymphocytes % 12.2 % [facility] LABORATORY Lymphocytes Abs 1.2 0.9 - 3.2 [facility] x10(3)/[facility] LABORATORY Monocytes % 9.0 % [facility] LABORATORY Monocyte Abs 0.9 0.3 - 0.9 [facility] x10(3)/[facility] LABORATORY Eosinophils % 3.9 % [facility] LABORATORY Eosinophils Abs 0.4 0.0 - 0.4 [facility] x10(3)/[facility] LABORATORY Basophils % 0.6 % [facility] LABORATORY Basophils Abs 0.1 0.0 - 0.1 [facility] x10(3)/[facility] LABORATORY Immature Gran [...] Organization Address City/State/ZIP Code Phon e Number [place] [id number]OS[address] (ABNORMAL) Hemogram (08/07/2017 7:30 AM EST) Analysis Performed At Patho logist Time Signature WBC 9.7 (H) 4.0 - 9.5 [facility] x10(3)/[facility] LABORATORY RBC 3.54 (L) 4.58 - [facility] 5.[address] [facility] x10(6)/[facility] LABORATORY Hemoglobin 9.9 (L) 13.7 - [facility] 16[facility] gm/dL [facility] LABORATORY Hematocrit 32.3 (L) 40.5 - [facility] 48.5 % [facility] LABORATORY MCV 91.2 82.9 - [facility] 93.1 fL [facility] LAB[facility] MCH 28.0 27.5 - [facility] 32.1 pg [facility] MCHC 30.7 (L) 32.0 - [facility] 35.7 gm/dL [facility]OR[facility] Platelets 312 145 - 357 [facility] x10(3)/[facility] LABORATORY RDWSD 53.2 (H) 36.0 - [facility] 45.0 [facility] LABORATORY RDWCV 16.0 (H) 11.4 - [facility] 13.8 % [facility] LABORATORY MPV 8.9 7.6 - 12.9 [facility] LABORATORY nRBC % Auto 0.0 % [facility] LABORATORY nRBC Abs Auto 0.000 0.000 - [facility] [address] [facility] x10(3)/[facility] LABORATORY Specimen Anatomical Collection Method Collection Time Receive d Time (Source) Location / / Volume Laterality Blood specimen 08/07/2017 7:30 AM 018 7:45 (specimen) EST AM EST Resulting Agency Comment Spec In Lab Yonathan Smith MD HEMATOLOGY ORDERABLES Performing Organization Address City/State/Z[place] [address] (ABNORMAL) Basic Metabolic Panel (non-fasting) (08/07/2017 7:30 AM EST) P athologist Signature Glucose Lvl 80 65 - 199 [facility] mg/dL [facility] LABORATORY [...] 8.5 8.5 - 10.5 mg/dL [facility] Linnea [facility] LAB[facility]ORY Estimated GFR 59 (L) >=60 [facility] LAB[facility] Comment: The reported eGFR should be multiplied b y 1.2 for patients. The MDRD is not an appropriate measure o f renal function for patients with body mass extremes or in patients with acute kidney failure. [email or web address] Specimen Anatomical Collection Method Collection Time Receive d Time (Source) Location / / Volume Laterality Blood specimen 08/07/2017 7:30 AM 018 7:45 (specimen) EST AM EST Resulting Agency Comment Spec In Lab Yonathan Smith MD CHEMISTRY ORDERABLES Performing Organization Address City/[facility] Phon e Number [address] POCT Glucose (08/07/2017 7:27 AM EST) athologist Signature POC Glucose 81 65 - 199 [facility] mg/dL [facility] Comment: Supplemental [...] [facility] [place]/ZIP Code Phon e Number [address] APTT (08/07/2017 7:04 AM [...] Smith MD HEMATOLOGY ORDERABLES Performing Organization Address City/[facility]/ZIP [place] [address] (ABNORMAL) Prothrombin Time (08/07/2017 [...] Smith MD HEMATOLOGY ORDERABLES Performing Organization Address City/[facility]/ZIP [place] [address] POCT Glucose (08/07/2017 4:03 AM EST) athologist Signature POC Glucose 93 65 - 199 [facility] mg/dL [facility] Comment: Supplemental [...] [facility]/ZIP [place] [address] POCT Glucose (08/07/2017 12:04 AM EST) P athologist Signature POC Glucose 107 65 - 199 [facility] mg/dL [facility] LABORATORY [...] [facility] [place]/ZIP Code Phon e Number [address] POCT Glucose (08/06/2017 7:56 PM EST) P athologist Signature POC Glucose 178 65 - 199 [facility] mg/dL [facility] LABORATORY [...] [facility]/ZIP [place] [address] TcPO2 (08/06/2017 2:32 PM EST) Component Value Ref Test Analysis [facility] At [facility] Range Method Time Signature VB Text Department: Vascular Surgery Lab VASCUBASE Report Patient: [id number] (GREGORY HOANG) CPT: [id number] ICD10: I99.8 Referring Physician: YONATHAN SMITH ?? [...] documented in this encounter Care Teams Branch Chief Relationship Specialty Start Date End Date Lovely Vicente MD PCP - General 04/16/[address] [place] [address] [address] [place] [address] documented as of this encounter
--- OUTSIDE RECORDS SUMMARY | 2022-03-16 08:18 | XMS_ITS | Encounter Summary ---
:1945 Author Organization [facility] [address] Care Team Providers Name Role Phone Lovely Vicente MD Primary Care Provider Reason for Visit Auth/Cert Specialty Diagnoses / Procedures Referred By Contact Refer red To Contact Diagnoses Critical lower limb ischemia CELLULITIS RT FOOT Procedures EMERGENCY Referral ID Status Reason Start Date Expiration Date Visits Requ ested Visits Authorized [id number] 1 1 Encounter Details Date Type Department Care Team Description 08/09/2017 Surgery Main Operating Room Yonathan Smith AM PUTATION, Mary Hitchcock MD TRANSMETATARSAL ([facility] 12.71) [facility] DR Siddiqui [place] [address] [place] [address] [phone] Social History Tobacco Use Types Packs/Day Years [...] 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 Patient [...] Dorsalis Pedis (Ankle) Artery ?132 ? 0.94 ??[place]-Biphasic ? Posterior Tibial (Ankle) Artery ??154 ? 1.10 ??[place]-Biphasic ? Fourth Toe ? 67 ?0.48 ?? [...] the foot. Discharge Conditions/Prognosis: Good Discharge to: [facility] Rehab Discharge Medications: Your Medications New [...] For any problems or questions please call [phone] ZELDA Smith, acrylic fabricator Nurse Clinician For issues on weeknights after 5pm and weekends please call [phone] and ask for the Vascular Fellow licensed occupational therapy assistant. General Instructions None Future Appointments and Orders Future Appointments Provider Department Dept Phone 08/26/2017 4:00 PM Aurelia Rivera PA [facility] [place] [phone] 09/07/2017 3:00 PM LAB, THREE L Lab 3L [facility] [phone] 09/07/2017 4:00 PM Luz Prescott MD Endocrinology [facility] [place] [phone] 09/09/2017 8:00 AM Barbra Soares APRN [facility] [place] [phone] Please bring a list of your current [...] For any problems or questions please call [phone] ZELDA Smith, acrylic fabricator Nurse Clinician For issues on weeknights after 5pm and weekends please call [phone] and ask for the Vascular Fellow licensed occupational therapy assistant. documented in this encounter Medications at [...] Discharge Note Patient Destination: [facility] ([facility]) [address] [id number] Transportation: with (at bedside) Time of Discharge: by 12 noon Level of Care: swing Patient Aware: yes Family Notified: yes Md to call report to: Yissel Quintero WIRE CUTTER already called RN to call report to: [phone] Shirin Wolf Office of Care Management Pager [phone] Shirin Wolf RN - 08/16/2017 10:50 AM EST [facility] has offered pt swing bed. Pt and accept bed. will transport via car. WIRE CUTTER Yissel Quintero aware; d/c paperwork will be completed by 12 noon. [facility] requests pt arrival by 1400 today; WIRE CUTTER, RN, and family aware. WIRE CUTTER called [facility] and was told that they prefer pt to arrive with wound vac dressing applied but clamped. WIRE CUTTER applied new wound vac dressing. RN has [facility] number to call report. PASSR completed; WIRE CUTTER paged to request provider signature in highlighted space. Indigo from [facility] notified via email that home wound vac now cancelled; [facility] has picked up from room and order cancelled. Packet started and provided to community outreach coordinator. Medicare important message explained to patient, patient signed. Copy provided to patient and signature page to OCM for inclusion in pt EMR. L Radha Powers Yoselin - 08/16/2017 10:34 AM EST Office of Care Management/Technical Service Rep Patient Name: Gregory Hoang : 1945 Patient has been offered a swing bed at [facility]. The patient will be transported by private transportation. No MD to MD report necessary Please call Nursing Report to [phone], ask for diamond mounter. Info to accompany patient: Narcotic Prescriptions Copies of Medication Administration Records and IV sheets for past 10 days. Plan: Technical Service Rep will be available to the patient and Merchant Tailor-RN and/or Test Cell Technician for further assistance. Patient will be discharged to: [place] [id number] Radha Powers, Technical Service Rep Mira Truong, VAMSI - 08/15/2017 10:05 PM EST [address] Flores to ask if he wanted to hold metoprolol dose. BP 95/58. OK to hold this dose Courtney Brito - 08/15/2017 3:26 PM EST Office of Care Management(OCM)/Technical Service Rep(RS)/ D/C Planning re : Patient is medically ready for d/c today. RS has been in contact with [facility] to see if they could offer a bed. [facility] is still reviewing the case and need their MD to review chart prior to accepting or declining. OCM team needs to check in with [facility] tomorrow to check on status. 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 Vac in place. [...] like information about patient's referral to: [facility] PHONE: [phone] FAX: [phone] CM spoke with RS who said that [...] rehab. Await recommendations from PT. Covering pager #[phone]. 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 Bond Writer Kaitlin Saha, RN Pager #[phone] Payam Rosales - 08/13/2017 2:37 PM EST Coil Winding Supervisor Encounter Note Patient Name: Gregory Hoang : [id number] MR#: [id number] Admit Date: 08/06/2017 1:41 PM Hospital Day 7 days Narrative: Visited to introduce and assess acceptance of Coil Winding Supervisor services. Pt was awake, alert, oriented and in chair and family was there. Assessment:Patient coping positively with stresses of illness/hospitalization at this time. Pt says that he is hoping to get better and his family was there. Pt says that he has family care and supportand taking one day at time. Intervention and Outcome: Provided emotional support and encouraging presence. 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 A letter describing our affiliations was reviewed with them and theywere educated about their right to choose where referrals are placed. Patient requests referral to [facility] [employer] PHONE: [phone] FAX: [phone]. And Home NPWT (Negative Pressure Wound Therapy) aka wound vac device made available to pt. Serial # confirmed. [facility]ed [facility] Proof of Delivery/Assignment of Benefits Statement(POD/AOB) Form w patient or authorized agent signing on behalf of patient. Copy of POD/AOB provided to pt and other copy faxed to [employer] @ fax# [phone] Expected date of discharge: 08/12/2017. 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 Address: [address] [place] [address] [place] [address] (home) Mobile: Telephone Information: Referring Provider: No [...] [facility] ENDOSCOPY ??? PRO ENDOSCOPY W/VIDEO-ASST VEIN HARVEST, CABG Right 07/07/2017 ENDOSCOPIC HARVEST VEIN(S) FOR CABG (WRVU 0.31) performed by Yuan Retana MD at [facility] MAIN OR ??? 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 Address: [address] [place] [address] [place] [address] (home) Mobile: Telephone Information: Referring Provider: No [...] [facility] ENDOSCOPY ??? PRO ENDOSCOPY W/VIDEO-ASST VEIN HARVEST, CABG Right 07/07/2017 ENDOSCOPIC HARVEST VEIN(S) FOR CABG (WRVU 0.31) performed by Yuan Retana MD at [facility] MAIN OR ??? 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 Vascular resident licensed occupational therapy assistant and will forward result to the team prior to rounds. 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 Patient [...] [facility] ENDOSCOPY ??? PRO ENDOSCOPY W/VIDEO-ASST VEIN HARVEST, CABG Right 07/07/2017 ENDOSCOPIC HARVEST VEIN(S) FOR CABG (WRVU 0.31) performed by Yuan Retana MD at [facility] MAIN OR ??? PRO THYROIDECTOMY 03/28/2013 THYROIDECTOMY, TOTAL OR COMPLETE performed by Manny Mcknight MD at [facility] MAIN OR Functional Status/Social Hx: Quit [...] left blue toes with CTA showing R TURF KEEPER pseudoaneurysm (now thrombosed) and occluded ATs bilaterally. [...] 2.5x80 5. Completion RLE angiogram 6. L TURF KEEPER angiogram 7. 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 - L TURF KEEPER angriogram demonstrated: High femoral bifurcation over the proximal half of the femoral head. L TURF KEEPER access in the distal L TURF KEEPER. - Closure device: Mynx Technical Procedure: The [...] for a 45cm 5F Destination. V18 and [place] and QuickCross catheters were used to select [...] 5F. A stationed picture of the L TURF KEEPER was performed as the patient was noted to have a very high bifurcation. Access appeared in the distal R TURF KEEPER. Closure and sheath removal was performed with [...] PM EST 1440 report called to 5 [place] nurse Tessa RN documented in this encounter [...] with pt and pt's spouse. Discharge to [facility]. Goal: Individualization & Mutuality Outcome: Outcome [...] days -- Transfer Training Goal, Activity Type wyu-yp-dpivg/egbfh-kj-dka -- Transfer Train Goal, Austin Level conditional [...] call cabello within reach, Hourly rounding by RN/GENETICS PHYSICIAN. Bed alarm / Chair alarm. Patient-specific fall [...] Smith MD - 08/15/2017 6:28 PM EST [facility] Operative Note Patient Name: Gregory Hoang : [id number] MR#: [id number] Case Date: 08/09/2017 Surgeon: Surgeon(s) and Role: [...] 2.5x80 5. Completion RLE angiogram 6. L TURF KEEPER angiogram 7. Mynx closure Precautions/Restrictions: fall, sternal [...] other (see comments) (or swing bed) Pager: [phone] BASSAM ELIAS, PT 08/14/2017 Inpatient Physical Therapy [...] these facilities over the weekend except for [facility]. CM spoke with [facility] CM Drea Sandhu, VAMSI who said that they do not anticipate any beds over the weekend. Reviewed with patient/ that they need to be aware that patient will need to take the first bed offered at the facilities that they make referrals to. Their choices are: 1- [facility] PHONE: [phone] FAX: [phone] 2- [facility] ([facility]) [address] [place] [address] 3- [facility]) [address] [place] [address] I have discussed Medicare/Private [...] RS/CM on Wednesday to follow-up. Covering pager #[phone] for today. Plan of Care - Henrique [...] with additional findings of pseudoaneurysm on R TURF KEEPER and bilateral anterior tibial artery occlusions. Was [...] an outpatient once discharged. Have patient call [phone] to set up an appointment. Follow-up: Dermatology will sign-off for now. Please do not hesitate to contact us if you have any questions orconcerns. Impression and Recommendations discussed with primary team on 08/13/2017. Karo Henderson MD Resident in Dermatology Section of Dermatology, Department of Surgery [facility] Pager [phone] Patient seen and evaluated with staff Plant Associate: Halima Cordero MD Section of Dermatology [facility] Level of Resident Supervision: [...] Outcome: Ongoing (Interventions Implemented as Appropriate) 08/12/17 1116 Coping/Psychosocial Plan Of Care Reviewed With patient;spouse [...] 2.5x80 5. Completion RLE angiogram 6. L TURF KEEPER angiogram 7. Mynx closure Active Non-Hospital Problems [...] home with home health ([facility] PT&OT) Pager: [phone] YASIR TELLO OT 08/12/2017 Occupational Therapy Rehabilitation [...] 2.5x80 5. Completion RLE angiogram 6. L TURF KEEPER angiogram 7. 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 Completion RLE angiogram 6. L TURF KEEPER angiogram 7. Mynx closure He is very [...] Anticipated Discharge Disposition: inpatient rehabilitation facility Pager: [phone] LAWRENCE GONZALEZ, PT 08/11/2017 Physical Therapy Rehabilitation [...] 7 days Transfer Training Goal, Activity Type rad-cs-opbri/okpaa-rt-rsb Transfer Train Goal, [place] Level conditional independence Plan of David DelloAnnetta [...] call cabello within reach, Hourly rounding by RN/GENETICS PHYSICIAN. Bed alarm / Chair alarm. ? Patient-specific [...] 04/05/2013 Hospitalizations Within the Past 30 Days: [facility] 07/20/2017 Anticipated Length Of Stay (If known): Expected Length of Hospitalization: 5-7 days2-3 days Current Decision-Making Capacity: Alert and oriented x 4 Advance Care Planning: on file Kisha Hoang [facility] [phone] Current Coping/Education/Information Needs: pt and spouse state [...] Health/Prescription Coverage: Primary Insurance: MEDICARE Secondary Insurance: [employer]at [place] Prescription Coverage: See above Preferred Pharmacy: [facility] [address] Other: N/A Primary Care Provider: Lovely Vicente MD [phone] Patient/Caregiver Goals of Treatment: Patient plans to [...] of care planning. Kaitlin Saha RN Pager: [phone] Plan of Care - Melba Jaramillo RN [...] Overview Goal: Plan of Care Review 08/08/17 0124 Coping/Psychosocial Plan Of Care Reviewed With patient [...] call cabello within reach, Hourly rounding by RN/GENETICS PHYSICIAN. Bed alarm / Chair alarm. Patient-specific fall prevention interventions for sensory deficits provided, if applicable: [X] Yes CPG GOAL OUTCOME EVALUATION: Goal: Fall Prevention-Safe Patient Handling Outcome: Ongoing (Interventions Implemented as Appropriate) 08/06/17 1700 08/06/17199908/07/17 4244 Positioning Body Position -- up in chair [...] at bedside and MD TEAM Carrying pager [phone] contacted (via Radio page) and notified of [...] Nobles MD [facility] [address] [place], [place] [address] (Wo rk) 05/28/2022 Appointment Cardiology Zulma Dolan MD [facility] [address] [place], [place] [address] (Wo rk) 05/28/2022 Laboratory Appointment Lab 05/28/2022 Office Visit Cardiology Zulma Dolan MD [facility] [place] [address] Liz Poole PA [facility] [place] [address] 06/10/2022 Office Visit Dermatology Laura Scherer MD [facility] DR TEJA GR-DERMAT OGY [place], [place] [address] (Wo rk) documented as of [...] section. TYPE AND SCREEN Routine 08/09/2017 1:10 ([facility]/CGP/SHANDA) AM EST BASIC METABOLIC PANEL Routine 08/09/2017 [...] POC Glucose 160 65 - 199 [facility] mg/dL [facility] Comment: Supplemental ranges: <140 mg/dL before meals <180 mg/dL all other times of the day Specimen Anatomical Collection Method Collection Time Receive d Time (Source) Location / / Volume Laterality Blood specimen 08/16/2017 7:28 AM 018 7:28 (specimen) EST AM EST Yonathan Smith MD POINT OF CARE TEST ORDERABLE S Performing Organization Address City/State/[place] [address] (ABNORMAL) Differential, Automated (08/16/2017 5:08 AM EST) [facility] Method Time Signature Neutrophils % 73.9 % [facility] Neutr Abs (ANC) 5.37 1.70 - [facility] 6.10 [facility] x10(3)/[facility] LABORATORY Lymphocytes % 10.1 % [facility] Lymphocytes Abs 0.7 (L) 0.9 - 3.2 [facility] x10(3)/[facility] LABORATORY Monocytes % 10.1 % [facility] Monocyte Abs 0.7 0.3 - 0.9 [facility] x10(3)/[facility] LABORATORY Eosinophils % 5.1 % [facility] Eosinophils Abs 0.4 0.0 - 0.4 [facility] x10(3)/[facility] LABORATORY Basophils % 0.4 % [facility] Basophils Abs 0.0 0.0 - 0.1 [facility] x10(3)/[facility] LABORATORY Immature Gran [...] - 0.04 x10(3)/[facility] Y [facility] LABORATORY Specimen Anatomical Collection Method Collection Time Receive d Time (Source) Location / / Volume Laterality Blood specimen 08/16/2017 5:08 AM 018 5:20 (specimen) EST AM EST Resulting Agency Comment Spec In Lab Yonathan Smith MD HEMATOLOGY ORDERABLES Performing Organization Address City/State/[place] [address] (ABNORMAL) Hemogram (08/16/2017 5:08 AM EST) Analysis Performed At Patho logist Time Signature WBC 7.3 4.0 - 9.5 [place] x10(3)/[facility] LABORATORY RBC 3.36 (L) 4.58 - [place] 5.54 [facility] x10(6)/[facility] LABORATORY Hemoglobin 9.7 (L) 13.7 - [facility] 16.5 gm/dL [facility] Hematocrit 30.3 (L) 40.5 - [facility] 48.5 % [facility] MCV 90.2 82.9 - [facility] 93.1 [facility] LABORATORY MCH 28.9 27.5 - [place] 32.1 pg [facility] MCHC 32.0 32.0 - [place] 35.7 gm/dL [facility] Platelets 282 145 - 357 [facility] x10(3)/[facility] LABORATORY RDWSD 53.9 (H) 36.0 - [facility] RYAN 45.0 [facility] LABORATORY RDWCV 16.5 (H) 11.4 - [facility] RYAN 13.8 % [facility] MPV 9.0 7.6 - 12.9 [place] LABORATORY nRBC % Auto 0.0 % [facility] nRBC Abs Auto 0.000 0.000 - [facility] RYAN 0.000 [facility] x10(3)/[facility] LABORATORY Specimen Anatomical Collection Method Collection Time Receive d Time (Source) Location / / Volume Laterality Blood specimen 08/16/2017 5:08 AM 018 5:20 (specimen) EST AM EST Resulting Agency Comment Spec In Lab Yonathan Smith MD HEMATOLOGY ORDERABLES Performing Organization Address City/State/[place] [address] (ABNORMAL) Basic Metabolic Panel (non-fasting) (08/16/2017 5:08 AM EST) P athologist Signature Glucose Lvl 141 65 - 199 [facility] mg/dL [facility] Comment: Diabetes: >=200 mg/dL plus symp toms BUN 29 (H) 10 - 20 mg/dL [facility] Creatinine 1.25 0.80 [...] mmol/L [facility] Calcium 8.7 8.5 - 10.5 mg/dL [facility] Estimated GFR 57 (L) >=60 [facility] Comment: The reported eGFR should be multiplied b y 1.2 for patients. The MDRD is not an appropriate measure o f renal function for patients with body mass extremes or in patients with acute kidney failure. http://Pump!.kaufDA/DHnkdep http://Instablogs/DHMCnkf Specimen Anatomical Collection Method Collection Time Receive d Time (Source) Location / / Volume Laterality Blood specimen 08/16/2017 5:08 AM 018 5:20 (specimen) EST AM EST Resulting Agency Comment Spec In Lab Yonathan Smith MD CHEMISTRY ORDERABLES Performing Organization Address City/State/[place] [address] (ABNORMAL) Prothrombin Time (08/16/2017 [...] [facility]/ZIP Code Phon e Number [address] POCT Glucose (08/16/2017 4:09 AM EST) athologist Signature POC Glucose 147 65 - 199 [facility] mg/dL [facility] Comment: Supplemental ranges: <140 mg/dL [...] [facility]/ZIP Code Phon e Number [address] POCT Glucose (08/15/2017 11:56 PM EST) athologist Signature POC Glucose 176 65 - 199 [facility] RYAN mg/dL [facility] Comment: Supplemental ranges: <140 mg/dL before meals <180 mg/dL all other times of the day Specimen Anatomical Collection Method Collection Time Receive d Time (Source) Location / / Volume Laterality Blood specimen 08/15/2017 11:56 8 (specimen) PM EST 11:56 PM EST Yonathan Smith MD POINT OF CARE TEST ORDERABLE S Performing Organization Address City/State/ZIP [place] [address] POCT Glucose (08/15/2017 8:05 PM EST) athologist Signature POC Glucose 136 65 - 199 [facility] [place] mg/dL [facility] Comment: Supplemental ranges: <140 mg/dL before meals <180 mg/dL all other times of the day Specimen Anatomical Collection Method Collection Time Receive d Time (Source) Location / / Volume Laterality Blood specimen 08/15/2017 8:05 PM 018 8:05 (specimen) EST PM EST Yonathan Smith MD POINT OF CARE TEST ORDERABLE S Performing Organization Address City/State/[place] [address] (ABNORMAL) POCT Glucose (08/15/2017 4:50 PM EST) athologist Signature POC Glucose 232 (H) 65 - 199 [facility] mg/dL [facility] Comment: Supplemental ranges: <140 mg/dL before meals <180 mg/dL all other times of the day Specimen Anatomical Collection Method Collection Time Receive d Time (Source) Location / / Volume Laterality Blood specimen 08/15/2017 4:50 PM 018 4:50 (specimen) EST PM EST Yonathan Smith MD POINT OF CARE TEST ORDERABLE S Performing Organization Address City/State/[place] [address] POCT Glucose (08/15/2017 12:04 PM EST) athologist Signature POC Glucose 135 65 - 199 [place] mg/dL [facility] LABOR[facility]ORY Comment: Supplemental ranges: <140 mg/dL before meals <180 mg/dL all other times of the day Specimen Anatomical Collection Method Collection Time Receive d Time (Source) Location / / Volume Laterality Blood specimen 08/15/2017 12:04 8 (specimen) PM EST 12:04 PM EST Yonathan Smith MD POINT OF CARE TEST ORDERABLE S Performing Organization Address City/State/[place] [address] POCT Glucose (08/15/2017 7:36 AM EST) P athologist Signature POC Glucose 124 65 - 199 [facility] mg/dL [facility] LAB[facility] Comment: Supplemental ranges: <140 mg/dL before meals <180 mg/dL all other times of the day Specimen Anatomical Collection Method Collection Time Receive d Time (Source) Location / / Volume Laterality Blood specimen 08/15/2017 7:36 AM 018 7:36 (specimen) EST AM EST Yonathan Smith MD POINT OF CARE TEST ORDERABLE S Performing Organization Address City/State/ZIP Code Phon e Number [place] [id number] [facility] [address] Drive (ABNORMAL) Differential, Automated (08/15/2017 6:22 AM EST) Patholo gist Method Time Signature Neutrophils % 76.1 % [facility] LABORATORY Neutr Abs (ANC) 6.62 (H) 1.70 - [facility] 6.10 [facility] x10(3)/[facility] L LABORATORY Lymphocytes % 9.3 % [facility] LABORATORY Lymphocytes Abs 0.8 (L) 0.9 - 3.2 [facility] x10(3)/[facility] LABORATORY Monocytes % 9.4 % [facility] LABORATORY Monocyte Abs 0.8 0.3 - 0.9 [facility] x10(3)/[facility] LABORATORY Eosinophils % 4.0 % [facility] LABORATORY Eosinophils Abs 0.4 0.0 - 0.4 [facility] x10(3)/[facility] LABORATORY Basophils % 0.6 % [facility] LABORATORY Basophils Abs 0.0 0.0 - 0.1 [facility] x10(3)/[facility] LABORATORY Immature Gran % 0.60 [...] Abs 0.05 (H) 0.00 - 0.04 x10(3)/[facility] LABORATORY Specimen Anatomical Collection Method Collection Time Receive d Time (Source) Location / / Volume Laterality Blood specimen 08/15/2017 6:22 AM 018 6:33 (specimen) EST AM EST Resulting Agency Comment Spec In Lab Yonathan Smith MD HEMATOLOGY ORDERABLES Performing Organization Address City/State/[place] [address] (ABNORMAL) Hemogram (08/15/2017 6:22 AM EST) Analysis Performed At Patho logist Time Signature WBC 8.7 4.0 - 9.5 [facility] x10(3)/[facility] LABORATORY RBC 3.21 (L) 4.58 - [place] 5.54 [facility] x10(6)/[facility] LABORATORY Hemoglobin 9.1 (L) 13.7 - [facility] 16.[facility] gm/dL [facility] LAB[facility]ORY Hematocrit 29.0 (L) 40.5 - [facility] 48.5 % [facility] LAB[facility]ATORY MCV 90.3 82.9 - [facility] 93.1 [facility] LABORATORY MCH 28.3 27.5 - [facility] 32.1 pg [facility] LABORATORY MCHC 31.4 (L) 32.0 - [facility] 35.7 gm/dL [facility] LABORATORY Platelets 254 145 - 357 [facility] x10(3)/[facility] LABORATORY RDWSD 53.9 (H) 36.0 - [facility] R[place]AN 45.0 [facility] LABORATORY RDWCV 16.3 (H) 11.4 - [facility] [place]AN 13.8 % [facility] LABORATORY MPV 8.8 7.6 - 12.9 [facility] nRBC % Auto 0.0 % [facility] LABORATORY nRBC Abs Auto 0.000 0.000 - [place] 0.000 [facility] x10(3)/[facility] LABORATORY Specimen Anatomical Collection Method Collection Time Receive d Time (Source) Location / / Volume Laterality Blood specimen 08/15/2017 6:22 AM 018 6:33 (specimen) EST AM EST Resulting Agency Comment Spec In Lab Yonathan Smith MD HEMATOLOGY ORDERABLES Performing Organization Address City/State/[place] [address] (ABNORMAL) Basic Metabolic Panel (non-fasting) (08/15/2017 6:22 AM EST) athologist Signature Glucose Lvl 118 65 - 199 [facility] mg/dL [facility] LABORATORY Comment: Diabetes: >=200 mg/dL plus [...] [facility] LABORATORY Estimated GFR >60 >=60 [facility] LABORATORY Comment: The reported eGFR should be multiplied b y 1.2 for patients. The MDRD is not an appropriate measure o f renal function for patients with body mass extremes or in patients with acute kidney failure. http://Pump!.kaufDA/DHnkdep http://Pump!.kaufDA/DHMCnkf Specimen Anatomical Collection Method Collection Time Receive d Time (Source) Location / / Volume Laterality Blood specimen 08/15/2017 6:22 AM 018 6:33 (specimen) EST AM EST Resulting Agency Comment Spec In Lab Yonathan Smith MD CHEMISTRY ORDERABLES Performing Organization Address City/State/[place] [address] (ABNORMAL) Prothrombin Time (08/15/2017 [...] [facility]/[place]IP [place] [address] POCT Glucose (08/15/2017 4:33 AM EST) athologist Signature POC Glucose 164 65 - 199 [facility] Comment: Supplemental ranges: <140 mg/dL before meals <180 mg/dL all other times of the day Specimen Anatomical Collection Method Collection Time Receive d Time (Source) Location / / Volume Laterality Blood specimen 08/15/2017 4:33 AM 018 4:33 (specimen) EST AM EST Yonathan Smith MD POINT OF CARE TEST ORDERABLE S Performing Organization Address City/State/[place] [address] POCT Glucose (08/15/2017 12:12 AM EST) athologist Signature POC Glucose 89 65 - 199 [facility] Comment: Supplemental ranges: <140 mg/dL before meals <180 mg/dL all other times of the day Specimen Anatomical Collection Method Collection Time Receive d Time (Source) Location / / Volume Laterality Blood specimen 08/15/2017 12:12 8 (specimen) AM EST 12:12 AM EST Yonathan Smith MD POINT OF CARE TEST ORDERABLE S Performing Organization Address City/State/[place] [address] (ABNORMAL) POCT Glucose (08/14/2017 8:07 PM EST) athologist Signature POC Glucose 204 (H) 65 - 199 [place] mg/dL [facility] LABOR[facility] Comment: Supplemental ranges: <140 mg/dL before meals <180 mg/dL all other times of the day Specimen Anatomical Collection Method Collection Time Receive d Time (Source) Location / / Volume Laterality Blood specimen 08/14/2017 8:07 PM 018 8:07 (specimen) EST PM EST Yonathan Smith MD POINT OF CARE TEST ORDERABLE S Performing Organization Address City/State/[place] [address] POCT Glucose (08/14/2017 5:11 PM EST) athologist Signature POC Glucose 174 65 - 199 [place] mg/dL [facility] LABOR[facility] Comment: Supplemental ranges: <140 mg/dL before meals <180 mg/dL all other times of the day Specimen Anatomical Collection Method Collection Time Receive d Time (Source) Location / / Volume Laterality Blood specimen 08/14/2017 5:11 PM 018 5:11 (specimen) EST PM EST Yonathan Smith MD POINT OF CARE TEST ORDERABLE S Performing Organization Address City/State/[place] [address] POCT Glucose (08/14/2017 12:10 PM EST) athologist Signature POC Glucose 141 65 - 199 [facility] Comment: Supplemental ranges: <140 mg/dL before meals <180 mg/dL all other times of the day Specimen Anatomical Collection Method Collection Time Receive d Time (Source) Location / / Volume Laterality Blood specimen 08/14/2017 12:10 8 (specimen) PM EST 12:10 PM EST Yonathan Smith MD POINT OF CARE TEST ORDERABLE S Performing Organization Address City/State/ZIP Code Phon e Number [address] POCT Glucose (08/14/2017 8:07 AM EST) P athologist Signature POC Glucose 158 65 - 199 [place] mg/dL [facility] LABOR[facility] Comment: Supplemental ranges: <140 mg/dL before meals <180 mg/dL all other times of the day Specimen Anatomical Collection Method Collection Time Receive d Time (Source) Location / / Volume Laterality Blood specimen 08/14/2017 8:07 AM 018 8:07 (specimen) EST AM EST Yonathan Smith MD POINT OF CARE TEST ORDERABLE S Performing Organization Address City/State/[place] [address] (ABNORMAL) Differential, Automated (08/14/2017 4:52 AM EST) Patholo gist Method Time Signature Neutrophils % 78.6 % [facility] LABORATORY Neutr Abs (ANC) 7.70 (H) 1.70 - [facility] 6.10 [facility] x10(3)/[facility] L LABORATORY Lymphocytes % 7.8 % [facility] LABORATORY Lymphocytes Abs 0.8 (L) 0.9 - 3.2 [facility] x10(3)/[facility] LABORATORY Monocytes % 8.8 % [facility] LABORATORY Monocyte Abs 0.9 0.3 - 0.9 [facility] x10(3)/[facility] LABORATORY Eosinophils % 4.0 % [facility] LABORATORY Eosinophils Abs 0.4 0.0 - 0.4 [facility] x10(3)/[facility] LABORATORY Basophils % 0.5 % [facility] LABORATORY Basophils Abs 0.0 0.0 - 0.1 [facility] x10(3)/[facility] LABORATORY Immature [...] - 0.04 x10(3)/[facility] LABORATORY Specimen Anatomical Collection Method Collection Time Receive d Time (Source) Location / / Volume Laterality Blood specimen 08/14/2017 4:52 AM 018 5:08 (specimen) EST AM EST Resulting Agency Comment Spec In Lab Yonathan Smith MD HEMATOLOGY ORDERABLES Performing Organization Address City/State/[place] [address] (ABNORMAL) Hemogram (08/14/2017 4:52 AM EST) Analysis Performed At Patho logist Time Signature WBC 9.8 (H) 4.0 - 9.5 [facility] x10(3)/[facility] LABORATORY RBC 3.32 (L) 4.58 - [place] 5.54 [facility] x10(6)/[facility] LABORATORY Hemoglobin 9.5 (L) 13.7 - [facility] 16.5 gm/dL [facility] LABORATORY Hematocrit 30.3 (L) 40.5 - [facility] RYAN 48.5 % [facility] LABORATORY MCV 91.3 82.9 - [facility] 93.1 [facility] LABORATORY MCH 28.6 27.5 - [place] 32.1 pg [facility] LABORATORY MCHC 31.4 (L) 32.0 - [place] 35.7 gm/dL [facility] LABORATORY Platelets 263 145 - 357 [facility] x10(3)/[facility] LABORATORY RDWSD 54.8 (H) 36.0 - [place] [address] [facility] RDWCV 16.5 (H) 11.4 - [facility] [place]AN 13.8 % [facility] LABORATORY MPV 9.1 7.6 - 12.9 [facility] LABORATORY nRBC % Auto 0.0 % [facility] LABORATORY nRBC Abs Auto 0.000 0.000 - [facility] 0.000 [facility] x10(3)/[facility] LABORATORY Specimen Anatomical Collection Method Collection Time Receive d Time (Source) Location / / Volume Laterality Blood specimen 08/14/2017 4:52 AM 018 5:08 (specimen) EST AM EST Resulting Agency Comment Spec In Lab Yonathan Smith MD HEMATOLOGY ORDERABLES Performing Organization Address City/State/[place] [address] (ABNORMAL) Prothrombin Time (08/14/2017 [...] Organization Address City/State/[place] [address] (ABNORMAL) Basic Metabolic Panel (non-fasting) (08/14/2017 4:52 AM EST) P athologist Signature Glucose Lvl 135 65 - 199 [facility] mg/dL [facility] LABORATORY Comment: Diabetes: >=200 mg/dL plus symp toms BUN 25 (H) 10 - 20 mg/dL [facility] LABORATORY Creatinine 1.36 0.80 [...] HOSPITAL LABORATORY Estimated GFR 52 (L) >=60 [facility] LABORATORY Comment: The reported eGFR should be multiplied b y 1.2 for patients. The MDRD is not an appropriate measure o f renal function for patients with body mass extremes or in patients with acute kidney failure. http://Pump!.kaufDA/DHnkdep http://Instablogs/DHnkf Specimen Anatomical Collection Method Collection Time Receive d Time (Source) Location / / Volume Laterality Blood specimen 08/14/2017 4:52 AM 018 5:08 (specimen) EST AM EST Resulting Agency Comment Spec In Lab Yonathan Smith MD CHEMISTRY ORDERABLES Performing Organization Address City/State/[place] [address] POCT Glucose (08/14/2017 3:56 AM EST) P athologist Signature POC Glucose 135 65 - 199 [facility] mg/dL [facility] LAB[facility]ORY Comment: Supplemental ranges: <140 mg/dL before meals <180 mg/dL all other times of the day Specimen Anatomical Collection Method Collection Time Receive d Time (Source) Location / / Volume Laterality Blood specimen 08/14/2017 3:56 AM 018 3:56 (specimen) EST AM EST Yonathan Smith MD POINT OF CARE TEST ORDERABLE S Performing Organization Address City/State/[place] [address] POCT Glucose (08/13/2017 11:13 PM EST) athologist Signature POC Glucose 118 65 - 199 [place] mg/dL [facility] LABORATORY Comment: Supplemental ranges: <140 mg/dL before meals <180 mg/dL all other times of the day Specimen Anatomical Collection Method Collection Time Receive d Time (Source) Location / / Volume Laterality Blood specimen 08/13/2017 11:13 8 (specimen) PM EST 11:13 PM EST Yonathna Smith MD POINT OF CARE TEST ORDERABLE S Performing Organization Address City/[facility]/[place] [address] (ABNORMAL) POCT Glucose (08/13/2017 8:08 PM EST) athologist Signature POC Glucose 204 (H) 65 - 199 [facility] LAB[facility] Comment: Supplemental ranges: <140 mg/dL before meals <180 mg/dL all other times of the day Specimen Anatomical Collection Method Collection Time Receive d Time (Source) Location / / Volume Laterality Blood specimen 08/13/2017 8:08 PM 018 8:08 (specimen) EST PM EST Yonathan Smith MD POINT OF CARE TEST ORDERABLE S Performing Organization Address City/State/[place] [address] POCT Glucose (08/13/2017 4:02 PM EST) athologist Signature POC Glucose 145 65 - 199 [facility] [place] mg/dL [facility] LABORATORY Comment: Supplemental ranges: <140 mg/dL before meals <180 mg/dL all other times of the day Specimen Anatomical Collection Method Collection Time Receive d Time (Source) Location / / Volume Laterality Blood specimen 08/13/2017 4:02 PM 018 4:02 (specimen) EST PM EST Yonathan Smith MD POINT OF CARE TEST ORDERABLE S Performing Organization Address City/State/[place] [address] POCT Glucose (08/13/2017 11:31 AM EST) athologist Signature POC Glucose 179 65 - 199 [facility]/dL [facility] LAB[facility] Comment: Supplemental ranges: <140 mg/dL [...] [facility]/[place] [address] (ABNORMAL) POCT Glucose (08/13/2017 10:16 AM EST) athologist Signature POC Glucose 211 (H) 65 - 199 [facility] mg/dL [facility] LAB[facility]ORY Comment: Supplemental ranges: <140 mg/dL [...] [facility]/[place] [address] JULIAN, legs, multiple levels (08/13/2017 7:42 AM EST) Component Value Ref Test Analysis Performed At Patholo gist Range Method Time Signature VB Text Department: Vascular Surgery Lab VASCUBASE Report Patient: [id number] (GREGORY HOANG) CPT: 01117 ICD10: I99.8 Referring Physician: YONATHAN SMITH ?? Indications: s/p R 1,2,3 toe amps with red left foot, need n ew baseline Diabetes mellitus: yes ICD10 Diagnosis Code: I99.8 Findings: Right ?Pressure (mm Hg) ?? JULIAN ??Waveform ?TBI ?? Brachial Artery ?138 ? Dorsalis Pedis (Ankle) Arter y ?132 ? 0.94 ??[place]- Biphasic ? Posterior Tibial (Ankle) Art anila ??154 ? 1.10 ??[place]-Biphasic ? Fourth Toe ? 67 ? 0.48 [...] 156 65 - 199 [place] mg/dL [facility] LABORATORY Comment: Supplemental ranges: <140 mg/dL before meals <180 mg/dL all other times of the day Specimen Anatomical Collection Method Collection Time Receive d Time (Source) Location / / Volume Laterality Blood specimen 08/13/2017 7:33 AM 018 7:33 (specimen) EST AM EST Yonathan Smith MD POINT OF CARE TEST ORDERABLE S Performing Organization Address City/State/ZIP Code [place] [address] (ABNORMAL) Differential, Automated (08/13/2017 5:33 AM EST) [facility] Method Time Signature Neutrophils % 77.8 % [facility] LABORATORY Neutr Abs (ANC) 7.83 (H) 1.70 - [facility] 6.10 [facility] x10(3)/[facility] L LABORATORY Lymphocytes % 8.4 % [facility] LABORATORY Lymphocytes Abs 0.8 (L) 0.9 - 3.2 [facility] x10(3)/[facility] LABORATORY Monocytes % 8.3 % [facility] LABORATORY Monocyte Abs 0.8 0.3 - 0.9 [facility] x10(3)/[facility] LABORATORY Eosinophils % 4.6 % [facility] LABORATORY Eosinophils Abs 0.5 (H) 0.0 - 0.4 [facility] x10(3)/[facility] LABORATORY Basophils % 0.5 % [facility] LABORATORY Basophils Abs 0.0 0.0 - 0.1 [facility] x10(3)/[facility] LABORATORY Immature [...] - 0.04 x10(3)/[facility] LABORATORY Specimen Anatomical Collection Method Collection Time Receive d Time (Source) Location / / Volume Laterality Blood specimen 08/13/2017 5:33 AM 018 6:04 (specimen) EST AM EST Resulting Agency Comment Spec In Lab Yonathan Smith MD HEMATOLOGY ORDERABLES Performing Organization Address City/State/[place] [address] (ABNORMAL) Hemogram (08/13/2017 5:33 AM EST) Analysis Performed At Patho logist Time Signature WBC 10.1 (H) 4.0 - 9.5 [place] x10(3)/[facility] LABORATORY RBC 3.21 (L) 4.58 - [place] 5.54 [facility] x10(6)/[facility] LABORATORY Hemoglobin 9.2 (L) 13.7 - [facility] 16.5 gm/dL [facility] LABORATORY Hematocrit 29.6 (L) 40.5 - [place] 48.5 % [facility] LABORATORY MCV 92.2 82.9 - [place] 93.1 [facility] LABORATORY MCH 28.7 27.5 - [place] 32.1 pg [facility] LABORATORY MCHC 31.1 (L) 32.0 - [facility] RYAN 35.7 gm/dL [facility] LABORATORY Platelets 263 145 - 357 [facility] x10(3)/[facility] LABORATORY RDWSD 54.8 (H) 36.0 - [facility] 45.0 [facility] LABORATORY RDWCV 16.4 (H) 11.4 - [facility] RYAN 13.8 % [facility] LABORATORY MPV 9.2 7.6 - 12.9 [facility] LABORATORY nRBC % Auto 0.0 % [facility] LABORATORY nRBC Abs Auto 0.000 0.000 - [facility] RYAN 0.000 [facility] x10(3)/[facility] LABORATORY Specimen Anatomical Collection Method Collection Time Receive d Time (Source) Location / / Volume Laterality Blood specimen 08/13/2017 5:33 AM 018 6:04 (specimen) EST AM EST Resulting Agency Comment Spec In Lab Yonathan Smith MD HEMATOLOGY ORDERABLES Performing Organization Address City/State/ZIP Code Phon e Number [place] [id number] (ABNORMAL) Prothrombin Time (08/13/2017 [...] Organization Address City/State/[place] [address] (ABNORMAL) Basic Metabolic Panel (non-fasting) (08/13/2017 5:33 AM EST) athologist Signature Glucose Lvl 126 65 - 199 [facility] mg/dL [facility] LABORATORY Comment: Diabetes: >=200 mg/dL plus symp toms BUN 18 10 - 20 mg/dL [facility] LABORATORY Creatinine 1.16 0.80 [...] mmol/L [facility] LABORATORY Calcium 7.9 (L) 8.5 - 10.5 mg/dL [facility] LABORATORY Estimated GFR >60 >=60 [place] [facility] LABORATORY Comment: The reported eGFR should be multiplied b y 1.2 for patients. The MDRD is not an appropriate measure o f renal function for patients with body mass extremes or in patients with acute kidney failure. http://Instablogs/DHnkdep http://Instablogs/DHMCnkf Specimen Anatomical Collection Method Collection Time Receive d Time (Source) Location / / Volume Laterality Blood specimen 08/13/2017 5:33 AM 018 6:04 (specimen) EST AM EST Resulting Agency Comment Spec In Lab Yonathan Smith MD CHEMISTRY ORDERABLES Performing Organization Address City/[facility] Phon e Number [address] POCT Glucose (08/13/2017 4:29 AM EST) athologist Signature POC Glucose 111 65 - 199 [facility]/dL [facility] LABORATORY Comment: Supplemental ranges: <140 mg/dL [...] [facility]/ZIP Code Phon e Number [address] POCT Glucose (08/12/2017 11:28 PM EST) athologist Signature POC Glucose 164 65 - 199 [facility] mg/dL [facility] LABORATORY Comment: Supplemental ranges: <140 mg/dL [...] [facility]/[place] [address] (ABNORMAL) POCT Glucose (08/12/2017 7:40 PM EST) athologist Signature POC Glucose 209 (H) 65 - 199 [facility] [place] mg/dL [facility] LABORATORY Comment: Supplemental ranges: <140 mg/dL before meals <180 mg/dL all other times of the day Specimen Anatomical Collection Method Collection Time Receive d Time (Source) Location / / Volume Laterality Blood specimen 08/12/2017 7:40 PM 018 7:40 (specimen) EST PM EST Yonathan Smith MD POINT OF CARE TEST ORDERABLE S Performing Organization Address City/State/ZIP Code Phon e Number [address] POCT Glucose (08/12/2017 4:24 PM EST) athologist Signature POC Glucose 161 65 - 199 [facility] [place] mg/dL [facility] LABORATORY Comment: Supplemental ranges: <140 mg/dL before meals <180 mg/dL all other times of the day Specimen Anatomical Collection Method Collection Time Receive d Time (Source) Location / / Volume Laterality Blood specimen 08/12/2017 4:24 PM 018 4:24 (specimen) EST PM EST Yonathan Smith MD POINT OF CARE TEST ORDERABLE S Performing Organization Address City/State/[place] [address] POCT Glucose (08/12/2017 12:00 PM EST) athologist Signature POC Glucose 167 65 - 199 [place] mg/dL [facility] LABORATORY Comment: Supplemental ranges: <140 mg/dL before meals <180 mg/dL all other times of the day Specimen Anatomical Collection Method Collection Time Receive d Time (Source) Location / / Volume Laterality Blood specimen 08/12/2017 12:00 8 (specimen) PM EST 12:00 PM EST Yonathan Smith MD POINT OF CARE TEST ORDERABLE S Performing Organization Address City/State/[place] [address] POCT Glucose (08/12/2017 7:25 AM EST) P athologist Signature POC Glucose 152 65 - 199 [facility] mg/dL [facility] LABORATORY Comment: Supplemental ranges: <140 mg/dL before meals <180 mg/dL all other times of the day Specimen Anatomical Collection Method Collection Time Receive d Time (Source) Location / / Volume Laterality Blood specimen 08/12/2017 7:25 AM 018 7:25 (specimen) EST AM EST Yonathan Smith MD POINT OF CARE TEST ORDERABLE S Performing Organization Address City/State/[place] [address] (ABNORMAL) Differential, Automated (08/12/2017 6:29 AM EST) Patholo gist Method Time Signature Neutrophils % 78.7 % [facility] LABORATORY Neutr Abs (ANC) 7.94 (H) 1.70 - [facility] 6.10 [facility] x10(3)/[facility] LABORATORY Lymphocytes % 8.8 % [facility] LABORATORY Lymphocytes Abs 0.9 0.9 - 3.2 [facility] x10(3)/[facility] LABORATORY Monocytes % 7.8 % [facility] LABORATORY Monocyte Abs 0.8 0.3 - 0.9 [facility] x10(3)/[facility] LABORATORY Eosinophils % 3.9 % [facility] LABORATORY Eosinophils Abs 0.4 0.0 - 0.4 [facility] x10(3)/[facility] LABORATORY Basophils % 0.3 % [facility] LABORATORY Basophils Abs 0.0 0.0 - 0.1 [facility] x10(3)/[facility] LABORATORY Immature [...] Abs 0.05 (H) 0.00 - 0.04 x10(3)/[facility] LABORATORY Specimen Anatomical Collection Method Collection Time Receive d Time (Source) Location / / Volume Laterality Blood specimen 08/12/2017 6:29 AM 018 6:38 (specimen) EST AM EST Resulting Agency Comment Spec In Lab Yonathan Smith MD HEMATOLOGY ORDERABLES Performing Organization Address City/State/[place] [address] (ABNORMAL) Hemogram (08/12/2017 6:29 AM EST) Analysis Performed At Patho logist Time Signature WBC 10.1 (H) 4.0 - 9.5 [place] x10(3)/[facility] LABORATORY RBC 3.02 (L) 4.58 - [place] 5.54 [facility] x10(6)/[facility] LABORATORY Hemoglobin 8.7 (L) 13.7 - [facility]/dL [facility] LABORATORY Hematocrit 28.1 (L) 40.5 - [facility] 48.5 % [facility] LABORATORY MCV 93.0 82.9 - [place] 93.1 [facility] LABORATORY MCH 28.8 27.5 - [facility] [place] 32.1 pg [facility] LABORATORY MCHC 31.0 (L) 32.0 - [place] 35.7 gm/dL [facility] LABORATORY Platelets 223 145 - 357 [facility] x10(3)/[facility] LABORATORY RDWSD 56.1 (H) 36.0 - [facility] R[facility]AN 45.0 [facility] LABORATORY RDWCV 16.4 (H) 11.4 - [facility] [place] 13.8 % [facility] LABORATORY MPV 9.0 7.6 - 12.9 [facility] LABORATORY nRBC % Auto 0.0 % [facility] LABORATORY nRBC Abs Auto 0.000 0.000 - [place] 0.000 [facility] x10(3)/[facility] LABORATORY Specimen Anatomical Collection Method Collection Time Receive d Time (Source) Location / / Volume Laterality Blood specimen 08/12/2017 6:29 AM 018 6:38 (specimen) EST AM EST Resulting Agency Comment Spec In Lab Yonathan Smith MD HEMATOLOGY ORDERABLES Performing Organization Address City/[facility]/[place] [address] (ABNORMAL) Prothrombin Time (08/12/2017 [...] Organization Address City/State/[place] [address] (ABNORMAL) Basic Metabolic Panel (non-fasting) (08/12/2017 6:29 AM EST) athologist Signature Glucose Lvl 151 65 - 199 [facility] mg/dL [facility] LABORATORY Comment: Diabetes: >=200 mg/dL plus symp toms BUN 18 10 - 20 mg/dL [facility] LABORATORY Creatinine 1.11 0.80 [...] mmol/L [facility] LABORATORY Calcium 7.9 (L) 8.5 - 10.5 mg/dL [facility] LABORATORY Estimated GFR >60 >=60 [facility] LABORATORY Comment: The reported eGFR should be multiplied b y 1.2 for patients. The MDRD is not an appropriate measure o f renal function for patients with body mass extremes or in patients with acute kidney failure. http://Instablogs/DHnkdep http://Instablogs/DHMCnkf Specimen Anatomical Collection Method Collection Time Receive d Time (Source) Location / / Volume Laterality Blood specimen 08/12/2017 6:29 AM 018 6:38 (specimen) EST AM EST Resulting Agency Comment Spec In Lab Yonathan Smith MD CHEMISTRY ORDERABLES Performing Organization Address City/[facility]/ZIP Code Phon e Number [address] POCT Glucose (08/12/2017 4:08 AM EST) athologist Signature POC Glucose 181 65 - 199 [place] mg/dL [facility] LABORATORY Comment: Supplemental ranges: <140 mg/dL [...] [facility]/[place] [address] (ABNORMAL) POCT Glucose (08/12/2017 12:17 AM EST) athologist Signature POC Glucose 221 (H) 65 - 199 [facility] LAB[facility] Comment: Supplemental ranges: <140 mg/dL before meals <180 mg/dL all other times of the day Specimen Anatomical Collection Method Collection Time Receive d Time (Source) Location / / Volume Laterality Blood specimen 08/12/2017 12:17 8 (specimen) AM EST 12:17 AM EST Yonathan Smith MD POINT OF CARE TEST ORDERABLE S Performing Organization Address City/State/[place] [address] (ABNORMAL) POCT Glucose (08/11/2017 8:52 PM EST) athologist Signature POC Glucose 221 (H) 65 - 199 [place] mg/dL [facility] LABORATORY Comment: Supplemental ranges: <140 mg/dL [...] [facility]/[place] [address] POCT Glucose (08/11/2017 5:59 PM EST) athologist Signature POC Glucose 169 65 - 199 [place] mg/dL [facility] LABORATORY Comment: Supplemental ranges: <140 mg/dL before meals <180 mg/dL all other times of the day Specimen Anatomical Collection Method Collection Time Receive d Time (Source) Location / / Volume Laterality Blood specimen 08/11/2017 5:59 PM 018 5:59 (specimen) EST PM EST Yonathan Smith MD POINT OF CARE TEST ORDERABLE S Performing Organization Address City/State/[place] [address] (ABNORMAL) POCT Glucose (08/11/2017 4:08 PM EST) athologist Signature POC Glucose 240 (H) 65 - 199 [place] mg/dL [facility] LABORATORY Comment: Supplemental ranges: <140 mg/dL [...] [facility]/ZIP Code Phon e Number [address] POCT Glucose (08/11/2017 12:04 PM EST) athologist Signature POC Glucose 182 65 - 199 [place] mg/dL [facility] LABORATORY Comment: Supplemental ranges: <140 mg/dL [...] [facility]/ZIP Code Phon e Number [address] POCT Glucose (08/11/2017 7:31 AM EST) athologist Signature POC Glucose 156 65 - 199 [place] mg/dL [facility] LABORATORY Comment: Supplemental ranges: <140 mg/dL [...] [facility]/ZIP Code Phon e Number [address] (ABNORMAL) Differential, Automated (08/11/2017 6:16 AM EST) [facility] Time Signature Neutrophils % 83.7 % [facility] LABORATORY Neutr Abs (ANC) 10.76 (H) 1.70 - [facility] 6.10 [facility] x10(3)/[facility] L LABORATORY Lymphocytes % 6.0 % [facility] LABORATORY Lymphocytes Abs 0.8 (L) 0.9 - 3.2 [facility] x10(3)/[facility] LABORATORY Monocytes % 7.5 % [facility] LABORATORY Monocyte Abs 1.0 (H) 0.3 - 0.9 [facility] x10(3)/[facility] LABORATORY Eosinophils % 2.0 % [facility] LABORATORY Eosinophils Abs 0.3 0.0 - 0.4 [facility] x10(3)/[facility] LABORATORY Basophils % 0.3 % [facility] LABORATORY Basophils Abs 0.0 0.0 - 0.1 [facility] x10(3)/[facility] LABORATORY Immature [...] Abs 0.06 (H) 0.00 - 0.04 x10(3)/[facility] LABORATORY Specimen Anatomical Collection Method Collection Time Receive d Time (Source) Location / / Volume Laterality Blood specimen 08/11/2017 6:16 AM 018 6:24 (specimen) EST AM EST Resulting Agency Comment Spec In Lab Yonathan Smith MD HEMATOLOGY ORDERABLES Performing Organization Address City/State/[place] [address] (ABNORMAL) Hemogram (08/11/2017 6:16 AM EST) Analysis Performed At Patho logist Time Signature WBC 12.9 (H) 4.0 - 9.5 [facility] x10(3)/[facility] LABORATORY RBC 3.28 (L) 4.58 - [facility] 5.54 [facility] x10(6)/[facility] LABORATORY Hemoglobin 9.5 (L) 13.7 - [facility] 16.5 gm/dL [facility] LABORATORY Hematocrit 29.8 (L) 40.5 - [place] 48.5 % [facility] LABORATORY MCV 90.9 82.9 - [facility] 93.1 [facility] LABORATORY MCH 29.0 27.5 - [place] 32.1 pg [facility] LABORATORY MCHC 31.9 (L) 32.0 - [place] 35.7 gm/dL [facility] LABORATORY Platelets 236 145 - 357 [facility] x10(3)/[facility] LABORATORY RDWSD 53.5 (H) 36.0 - [place] 45.0 [facility] LABORATORY RDWCV 16.3 (H) 11.4 - [facility] 13.8 % [facility] LABORATORY MPV 8.8 7.6 - 12.9 [facility] LABORATORY nRBC % Auto 0.0 % [facility] LABORATORY nRBC Abs Auto 0.000 0.000 - [place] 0.000 [facility] x10(3)/[facility] LABORATORY Specimen Anatomical Collection Method Collection Time Receive d Time (Source) Location / / Volume Laterality Blood specimen 08/11/2017 6:16 AM 018 6:24 (specimen) EST AM EST Resulting Agency Comment Spec In Lab Yonathan Smith MD HEMATOLOGY ORDERABLES Performing Organization Address City/State/[place] [address] (ABNORMAL) Prothrombin Time (08/11/2017 [...] Organization Address City/State/[place] [address] Basic Metabolic Panel (non-fasting) (08/11/2017 6:16 AM EST) athologist Signature Glucose Lvl 139 65 - 199 [facility] mg/dL [facility] LABORATORY Comment: Diabetes: >=200 mg/dL plus symp toms BUN 12 10 - 20 mg/dL [facility] LABORATORY Creatinine 0.91 0.80 [...] [facility] LABORATORY Estimated GFR >60 >=60 [facility] LABORATORY Comment: The reported eGFR should be multiplied b y 1.2 for patients. The MDRD is not an appropriate measure o f renal function for patients with body mass extremes or in patients with acute kidney failure. http://Pump!.kaufDA/DHnkdep http://Instablogs/DHMCnkf Specimen Anatomical Collection Method Collection Time Receive d Time (Source) Location / / Volume Laterality Blood specimen 08/11/2017 6:16 AM 018 6:24 (specimen) EST AM EST Resulting Agency Comment Spec In Lab Yonathan Smith MD CHEMISTRY ORDERABLES Performing Organization Address City/State/ZIP Code Phon e Number [address] POCT Glucose (08/11/2017 4:07 AM EST) athologist Signature POC Glucose 162 65 - 199 [place] mg/dL [facility] LABORATORY Comment: Supplemental ranges: <140 mg/dL [...] [facility]/ZIP Code Phon e Number [address] POCT Glucose (08/10/2017 11:59 PM EST) athologist Signature POC Glucose 166 65 - 199 [place] mg/dL [facility] LABORATORY Comment: Supplemental ranges: <140 mg/dL before meals <180 mg/dL all other times of the day Specimen Anatomical Collection Method Collection Time Receive d Time (Source) Location / / Volume Laterality Blood specimen 08/10/2017 11:59 8 (specimen) PM EST 11:59 PM EST Yonathan Smith MD POINT OF CARE TEST ORDERABLE S Performing Organization Address City/State/ZIP Code Phon e Number [address] POCT Glucose (08/10/2017 8:12 PM EST) athologist Signature POC Glucose 156 65 - 199 [place] mg/dL [facility] LABORATORY Comment: Supplemental ranges: <140 mg/dL before meals <180 mg/dL all other times of the day Specimen Anatomical Collection Method Collection Time Receive d Time (Source) Location / / Volume Laterality Blood specimen 08/10/2017 8:12 PM 018 8:12 (specimen) EST PM EST Yonathan Smith MD POINT OF CARE TEST ORDERABLE S Performing Organization Address City/State/[place] [address] (ABNORMAL) POCT Glucose (08/10/2017 4:42 PM EST) P athologist Signature POC Glucose 211 (H) 65 - 199 [place] mg/dL [facility] LABORATORY Comment: Supplemental ranges: <140 mg/dL before meals <180 mg/dL all other times of the day Specimen Anatomical Collection Method Collection Time Receive d Time (Source) Location / / Volume Laterality Blood specimen 08/10/2017 4:42 PM 018 4:42 (specimen) EST PM EST Yonathan Smith MD POINT OF CARE TEST ORDERABLE S Performing Organization Address City/State/ZIP Code Phon e Number [address] (ABNORMAL) Differential, Automated (08/10/2017 2:30 PM EST) Patholo gist Method Time Signature Neutrophils % 87.6 % [facility] LABORATORY Neutr Abs (ANC) 9.90 (H) 1.70 - [facility] 6.10 [facility] x10(3)/[facility] L LABORATORY Lymphocytes % 4.3 % [facility] LABORATORY Lymphocytes Abs 0.5 (L) 0.9 - 3.2 [facility] x10(3)/[facility] LABORATORY Monocytes % 6.0 % [facility] LABORATORY Monocyte Abs 0.7 0.3 - 0.9 [facility] x10(3)/[facility] LABORATORY Eosinophils % 1.1 % [facility] LABORATORY Eosinophils Abs 0.1 0.0 - 0.4 [facility] x10(3)/[facility] LABORATORY Basophils % 0.4 % [facility] LABORATORY Basophils Abs 0.0 0.0 - 0.1 [facility] x10(3)/[facility] LABORATORY Immature Gran % 0.60 [...] Abs 0.07 (H) 0.00 - 0.04 x10(3)/[facility] LABORATORY Specimen Anatomical Collection Method Collection Time Receive d Time (Source) Location / / Volume Laterality Blood specimen 08/10/2017 2:30 PM 018 2:48 (specimen) EST PM EST Resulting Agency Comment Spec In Lab Yonathan Smith MD HEMATOLOGY ORDERABLES Performing Organization Address City/State/[place] [address] (ABNORMAL) Hemogram (08/10/2017 2:30 PM EST) Analysis Performed At Patho logist Time Signature WBC 11.3 (H) 4.0 - 9.5 [facility] x10(3)/[facility] LABORATORY RBC 3.13 (L) 4.58 - [place] 5.54 [facility] x10(6)/[facility] LABORATORY Hemoglobin 8.9 (L) 13.7 - [place] 16.5 gm/dL [facility] LABORATORY Hematocrit 28.4 (L) 40.5 - [facility] 48.5 % [facility] LABORATORY MCV 90.7 82.9 - [place] 93.1 [facility] LABORATORY MCH 28.4 27.5 - [facility] 32.1 pg [facility] LABORATORY MCHC 31.3 (L) 32.0 - [facility] 35.7 gm/dL [facility] LABORATORY Platelets 213 145 - 357 [facility] x10(3)/[facility] LABORATORY RDWSD 53.7 (H) 36.0 - [facility] 45.0 [facility] LABORATORY RDWCV 16.4 (H) 11.4 - [facility] 13.8 % [facility] LABORATORY MPV 8.9 7.6 - 12.9 [facility] LABORATORY nRBC % Auto 0.0 % [facility] LABORATORY nRBC Abs Auto 0.000 0.000 - [place] 0.000 [facility] x10(3)/[facility] LABORATORY Specimen Anatomical Collection Method Collection Time Receive d Time (Source) Location / / Volume Laterality Blood specimen 08/10/2017 2:30 PM 018 2:48 (specimen) EST PM EST Resulting Agency Comment Spec In Lab Yonathan Smith MD HEMATOLOGY ORDERABLES Performing Organization Address City/[facility]/[place] [address] (ABNORMAL) POCT Glucose (08/10/2017 1:50 PM EST) athologist Signature POC Glucose 243 (H) 65 - 199 [place] mg/dL [facility] LABORATORY Comment: Supplemental ranges: <140 mg/dL before meals <180 mg/dL all other times of the day Specimen Anatomical Collection Method Collection Time Receive d Time (Source) Location / / Volume Laterality Blood specimen 08/10/2017 1:50 PM 018 1:50 (specimen) EST PM EST Yoanthan Smith MD POINT OF CARE TEST ORDERABLE S Performing Organization Address City/[facility]/[place] [address] POCT Glucose (08/10/2017 11:21 AM EST) athologist Signature POC Glucose 156 65 - 199 [place] mg/dL [facility] LABORATORY Comment: Supplemental ranges: <140 mg/dL [...] [facility]/ZIP Code Phon e Number [address] (ABNORMAL) Differential, Automated (08/10/2017 10:28 AM EST) [facility] Method Time Signature Neutrophils % 85.3 % [facility] LABORATORY Neutr Abs (ANC) 9.43 (H) 1.70 - [facility] 6.10 [facility] x10(3)/[facility] L LABORATORY Lymphocytes % 5.5 % [facility] LABORATORY Lymphocytes Abs 0.6 (L) 0.9 - 3.2 [facility] x10(3)/[facility] LABORATORY Monocytes % 5.9 % [facility] LABORATORY Monocyte Abs 0.6 0.3 - 0.9 [facility] x10(3)/[facility] LABORATORY Eosinophils % 2.1 % [facility] LABORATORY Eosinophils Abs 0.2 0.0 - 0.4 [facility] x10(3)/[facility] LABORATORY Basophils % 0.4 % [facility] LABORATORY Basophils Abs 0.0 0.0 - 0.1 [facility] x10(3)/[facility] LABORATORY Immature Gran % 0.80 [...] Abs 0.09 (H) 0.00 - 0.04 x10(3)/[facility] LABORATORY Specimen Anatomical Collection Method Collection Time Receive d Time (Source) Location / / Volume Laterality Blood specimen 08/10/2017 10:28 8 (specimen) AM EST 10:35 AM EST Resulting Agency Comment Spec In Lab Yonathan Smith MD HEMATOLOGY ORDERABLES Performing Organization Address City/State/[place] [address] (ABNORMAL) Hemogram (08/10/2017 10:28 AM EST) Analysis Performed At Patho logist Time Signature WBC 11.0 (H) 4.0 - 9.5 [facility] x10(3)/[facility] LABORATORY RBC 3.02 (L) 4.58 - [facility] 5.54 [facility] x10(6)/[facility] LABORATORY Hemoglobin 8.8 (L) 13.7 - [place] 16.5 gm/dL [facility] LABORATORY Hematocrit 28.1 (L) 40.5 - [place] 48.5 % [facility] LABORATORY MCV 93.0 82.9 - [place] 93.1 [facility] LABORATORY MCH 29.1 27.5 - [place] 32.1 pg [facility] LABORATORY MCHC 31.3 (L) 32.0 - [place] 35.7 gm/dL [facility] LABORATORY Platelets 207 145 - 357 [place] x10(3)/[facility] LABORATORY RDWSD 55.3 (H) 36.0 - [place] 45.0 [facility] LABORATORY RDWCV 16.4 (H) 11.4 - [place] 13.8 % [facility] LABORATORY MPV 9.0 7.6 - 12.9 [place] [facility] LABORATORY nRBC % Auto 0.0 % [facility] LABORATORY nRBC Abs Auto 0.000 0.000 - [place] 0.000 [facility] x10(3)/[facility] LABORATORY Specimen Anatomical Collection Method Collection Time Receive d Time (Source) Location / / Volume Laterality Blood specimen 08/10/2017 10:28 8 (specimen) AM EST 10:35 AM EST Resulting Agency Comment Spec In Lab Yonathan Smith MD HEMATOLOGY ORDERABLES Performing Organization Address City/State/[place] [address] VS Angiogram/intervention (vascular) (08/10/2017 [...] 2.5x80 5. Completion RLE angiogram 6. L TURF KEEPER angiogram 7. 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 L TURF KEEPER access in the distal L TURF KEEPER. - Closure device: Mynx Technical Procedure: ?The [...] for a 45cm 5F Destination. V18 and [place] a nd QuickCross catheters were used to [...] bifurcation. Access appeared in the distal R TURF KEEPER. Closure and sheath removal was performed with [...] 2.5x80 5. Completion RLE angiogram 6. L TURF KEEPER angiogram 7. 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 L TURF KEEPER access in the distal L TURF KEEPER. - Closure device: Mynx Technical Procedure: The [...] for a 45cm 5F Destination. V18 and [place] a nd QuickCross catheters were used to [...] bifurcation. Access appeared in the distal R TURF KEEPER. Closure and sheath removal was performed with [...] Abs (ANC) 9.01 (H) 1.70 - [facility] 6.10 [facility] x10(3)/[facility] L LABORATORY Lymphocytes % 8.8 % [facility] LABORATORY Lymphocytes Abs 1.0 0.9 - 3.2 [facility] x10(3)/[facility] LABORATORY Monocytes % 8.3 % [facility] LABORATORY Monocyte Abs 0.9 0.3 - 0.9 [facility] x10(3)/[facility] LABORATORY Eosinophils % 2.0 % [facility] LABORATORY Eosinophils Abs 0.2 0.0 - 0.4 [facility] x10(3)/[facility] LABORATORY Basophils % 0.4 % [facility] LABORATORY Basophils Abs 0.0 0.0 - 0.1 [facility] x10(3)/[facility] LABORATORY Immature Gran [...] Abs 0.05 (H) 0.00 - 0.04 x10(3)/[facility] LABORATORY Specimen Anatomical Collection Method Collection Time Receive d Time (Source) Location / / Volume Laterality Blood specimen 08/10/2017 5:50 AM 018 5:59 (specimen) EST AM EST Resulting Agency Comment Spec In Lab Yonathan Smith MD HEMATOLOGY ORDERABLES Performing Organization Address City/State/[place] [address] (ABNORMAL) Hemogram (08/10/2017 5:50 AM EST) Analysis Performed At Patho logist Time Signature WBC 11.3 (H) 4.0 - 9.5 [facility] x10(3)/[facility] LABORATORY RBC 3.15 (L) 4.58 - [facility].54 [facility] x10(6)/[facility] LABORATORY Hemoglobin 8.9 (L) 13.7 - [facility] 16.5 gm/dL [facility] LABORATORY Hematocrit 29.0 (L) 40.5 - [facility] RYAN 48.5 % [facility] LABORATORY MCV 92.1 82.9 - [facility] 93.1 [facility] LABORATORY MCH 28.3 27.5 - [facility] R[place]AN 32.1 pg [facility] LABORATORY MCHC 30.7 (L) 32.0 - [facility] [place] 35.7 gm/dL [facility] LABORATORY Platelets 231 145 - 357 [facility] x10(3)/[facility] LABORATORY RDWSD 53.9 (H) 36.0 - [place] 45.0 [facility] LABORATORY RDWCV 16.2 (H) 11.4 - [facility] 13.8 % [facility] LABORATORY MPV 8.7 7.6 - 12.9 [facility] LABORATORY nRBC % Auto 0.0 % [facility] LABORATORY nRBC Abs Auto 0.000 0.000 - [facility] 0.000 [facility] x10(3)/[facility] LABORATORY Specimen Anatomical Collection Method Collection Time Receive d Time (Source) Location / / Volume Laterality Blood specimen 08/10/2017 5:50 AM 018 5:59 (specimen) EST AM EST Resulting Agency Comment Spec In Lab Yonathan Smith MD HEMATOLOGY ORDERABLES Performing Organization Address City/State/[place] [address] (ABNORMAL) Basic Metabolic Panel (non-fasting) (08/10/2017 5:50 AM EST) P athologist Signature Glucose Lvl 135 65 - 199 [facility] mg/dL [facility] LABORATORY Comment: Diabetes: >=200 mg/dL plus [...] [facility] LABORATORY Estimated GFR >60 >=60 [facility] LABORATORY Comment: The reported eGFR should be multiplied b y 1.2 for patients. The MDRD is not an appropriate measure o f renal function for patients with body mass extremes or in patients with acute kidney failure. http://Pump!.kaufDA/DHnkdep http://Pump!.kaufDA/DHMCnkf Specimen Anatomical Collection Method Collection Time Receive d Time (Source) Location / / Volume Laterality Blood specimen 08/10/2017 5:50 AM 018 5:59 (specimen) EST AM EST Resulting Agency Comment Spec In Lab Yonathan Smith MD CHEMISTRY ORDERABLES Performing Organization Address City/[facility] [place] [address] (ABNORMAL) Prothrombin Time (08/10/2017 [...] City/[facility] [place] [address] (ABNORMAL) POCT Glucose (08/10/2017 4:01 AM EST) athologist Signature POC Glucose 206 (H) 65 - 199 [facility] mg/dL [facility] LABORATORY Comment: Supplemental ranges: <140 mg/dL before meals <180 mg/dL all other times of the day Specimen Anatomical Collection Method Collection Time Receive d Time (Source) Location / / Volume Laterality Blood specimen 08/10/2017 4:01 AM 018 4:01 (specimen) EST AM EST Yonathan Smith MD POINT OF CARE TEST ORDERABLE S Performing Organization Address City/State/[place] [address] POCT Glucose (08/10/2017 2:01 AM EST) athologist Signature POC Glucose 188 65 - 199 [place] [facility] mg/dL [facility] LABORATORY Comment: Supplemental ranges: <140 mg/dL [...] [facility]/[place] [address] (ABNORMAL) POCT Glucose (08/09/2017 11:42 PM EST) athologist Signature POC Glucose 283 (H) 65 - 199 [place] mg/dL [facility] LABORATORY Comment: Supplemental ranges: <140 mg/dL before meals <180 mg/dL all other times of the day Specimen Anatomical Collection Method Collection Time Receive d Time (Source) Location / / Volume Laterality Blood specimen 08/09/2017 11:42 8 (specimen) PM EST 11:42 PM EST Yonathan Smith MD POINT OF CARE TEST ORDERABLE S Performing Organization Address City/State/[place] [address] POCT Glucose (08/09/2017 8:55 PM EST) athologist Signature POC Glucose 182 65 - 199 [place] mg/dL [facility] LABORATORY Comment: Supplemental ranges: <140 mg/dL [...] [facility]/[place] [address] (ABNORMAL) APTT (08/09/2017 6:42 PM EST) athologist Signature PTT 90 (H) 25 - 35 sec [facility] LABORATORY Comment: The recommended therapeutic range for fu ll dose, unfractionated heparin at [facility] is 80 ? 114 seconds. The use [...] [facility]/[place] [address] POCT Glucose (08/09/2017 4:41 PM EST) athologist Signature POC Glucose 195 65 - 199 [facility] mg/dL [facility] LABORATORY Comment: Supplemental ranges: <140 mg/dL [...] [facility]/[place] [address] POCT Glucose (08/09/2017 12:29 PM EST) athologist Signature POC Glucose 140 65 - 199 [facility] mg/dL [facility] LABORATORY Comment: Supplemental ranges: <140 mg/dL [...] [facility]/ZIP Code Phon e Number [address] POCT Glucose (08/09/2017 9:59 AM EST) P athologist Signature POC Glucose 135 65 - 199 [facility] mg/dL [facility] LABORATORY Comment: Supplemental ranges: <140 mg/dL [...] [facility]/ZIP Code Phon e Number [address] Specimen to Pathology (08/09/2017 [...] [facility]/[place] [address] Surgical Pathology Report (08/09/2017 8:40 AM EST) Component Value Ref Test Analysis Performed At Patholo gist Range Method Time Signature Surgical [id number] ? Location: [facility]; [facility]; A [facility] Report The signing pathologist has (i) [...] Henrique Flower Verified: ??08/13/2017 ?Pathologist Performed at: ??-[facility] Dept. of Pathology, [place], [place] CLINICAL INFORMATION Specimen Submitted: A - [...] Organization Address City/State/Z[place] [address] [facility] [address] Anaerobic Culture (08/09/2017 8:30 AM EST) [facility] Direct [employer]et [employer] Method Time Signature Anaerobic No anaerobic [facility] Culture organisms [facility] LABORATORY Specimen Anatomical Collection Method Collection Time [...] Organization Address City/State/[place] [address] (ABNORMAL) Abscess/Wound Aspirate Culture (08/09/2017 8:30 AM EST) [facility] Method Time Signature Abscess/Wound Moderate mixed [facility] Aspirate bacterial [place] Culture morphotypes [facility] normal LABORATORY cutaneous leroy (A) Gram Stain Rare White Blood Cells [place] Few Gram Positive Cocci in pairs [place] () [facility] LABORATORY Organism Gram Positive [place] Cocci in pairs [place] () [facility] LABORATORY Specimen Anatomical Collection Method Collection [...] ROBSON Performing Organization Address City/[facility]/ZIP Code Phon e Number [place] [id number]OS[address] POCT Glucose (08/09/2017 4:28 AM EST) P athologist Signature POC Glucose 128 65 - 199 [facility] LABORATORY Comment: Supplemental ranges: <140 mg/dL before meals <180 mg/dL all other times of the day Specimen Anatomical Collection Method Collection Time Receive d Time (Source) Location / / Volume Laterality Blood specimen 08/09/2017 4:28 AM 018 4:28 (specimen) EST AM EST Yonathan Smith MD POINT OF CARE TEST ORDERABLE S Performing Organization Address City/State/ZIP Code Phon e Number [address] [place]H Recheck Status (08/09/2017 1:10 AM EST) [facility] Method Time Signature ABORH Type Completed [...] [facility]/[place]IP [place] [address] Antibody screen (08/09/2017 1:10 AM EST) [facility] Method Time Signature Ab Screen Negative [facility] LABORATORY Expires at 08/12/2017 [facility] [id number] on: [facility] LABORATORY Specimen Anatomical Collection Method Collection Time Receive d Time (Source) Location / / Volume Laterality Blood specimen 08/09/2017 1:10 AM 018 1:35 (specimen) EST AM EST Resulting Agency Comment Spec In Lab Yonathan Smith MD BLOOD BANK ORDERABLES Performing Organization Address City/[facility]/[place] [address] ABO/Rh Typing (08/09/2017 1:10 [...] [facility]/[place] [address] (ABNORMAL) APTT (08/09/2017 1:10 AM EST) P athologist Signature PTT 86 (H) 25 - 35 sec [facility] LABORATORY Comment: The recommended therapeutic range for fu ll dose, unfractionated heparin at [facility] is 80 ? 114 seconds. The use [...] Organization Address City/State/[place] [address] (ABNORMAL) Differential, Automated (08/09/2017 1:10 AM EST) [facility] gist Method Time Signature Neutrophils % 76.2 % [facility] LABORATORY Neutr Abs (ANC) 8.59 (H) 1.70 - [facility] 6.10 [facility] x10(3)/[facility] LABORATORY Lymphocytes % 11.0 % [facility] LABORATORY Lymphocytes Abs 1.2 0.9 - 3.2 [facility] x10(3)/[facility] LABORATORY Monocytes % 8.4 % [facility] LABORATORY Monocyte Abs 1.0 (H) 0.3 - 0.9 [facility] x10(3)/[facility] LABORATORY Eosinophils % 3.5 % [facility] LABORATORY Eosinophils Abs 0.4 0.0 - 0.4 [facility] x10(3)/[facility] LABORATORY Basophils % 0.5 % [facility] LABORATORY Basophils Abs 0.1 0.0 - 0.1 [facility] x10(3)/[facility] LABORATORY Immature [...] Abs 0.05 (H) 0.00 - 0.04 x10(3)/[facility] LABORATORY Specimen Anatomical Collection Method Collection Time Receive d Time (Source) Location / / Volume Laterality Blood specimen 08/09/2017 1:10 AM 018 1:19 (specimen) EST AM EST Resulting Agency Comment Spec In Lab Yonathan Smith MD HEMATOLOGY ORDERABLES Performing Organization Address City/State/[place] [address] (ABNORMAL) Hemogram (08/09/2017 1:10 AM EST) Analysis Performed At Patho logist Time Signature WBC 11.3 (H) 4.0 - 9.5 [facility] x10(3)/[facility] LABORATORY RBC 3.47 (L) 4.58 - [facility] R[place]AN 5.54 [facility] x10(6)/[facility] LABORATORY Hemoglobin 10.0 (L) 13.7 - [place] 16.5 gm/dL [facility] LABORATORY Hematocrit 31.9 (L) 40.5 - [facility] 48.5 % [facility] LABORATORY MCV 91.9 82.9 - [facility] 93.1 [facility] LABORATORY MCH 28.8 27.5 - [place] 32.1 pg [facility] LABORATORY MCHC 31.3 (L) 32.0 - [place] 35.7 gm/dL [facility] LABORATORY Platelets 234 145 - 357 [facility] x10(3)/[facility] LABORATORY RDWSD 54.0 (H) 36.0 - [facility] 45.0 [facility] LABORATORY RDWCV 16.2 (H) 11.4 - [facility] 13.8 % [facility] LABORATORY MPV 8.7 7.6 - 12.9 [facility] LABORATORY nRBC % Auto 0.0 % [facility] LABORATORY nRBC Abs Auto 0.000 0.000 - [facility] eziCONEX 0.000 [facility] x10(3)/[facility] LABORATORY Specimen Anatomical Collection Method Collection Time Receive d Time (Source) Location / / Volume Laterality Blood specimen 08/09/2017 1:10 AM 018 1:19 (specimen) EST AM EST Resulting Agency Comment Spec In Lab Yonathan Smith MD HEMATOLOGY ORDERABLES Performing Organization Address [facility] [place] [address] (ABNORMAL) Prothrombin Time (08/09/2017 [...] Smith MD HEMATOLOGY ORDERABLES Performing Organization Address [facility] [place] [address] (ABNORMAL) Basic Metabolic Panel (non-fasting) (08/09/2017 1:10 AM EST) athologist Signature Glucose Lvl 108 65 - 199 [facility] mg/dL [facility] LABORATORY Comment: Diabetes: >=200 mg/dL plus symp toms BUN 34 (H) 10 - 20 mg/dL [facility] LABORATORY Creatinine 1.54 (H) [...] HOSPITAL LABORATORY Estimated GFR 45 (L) >=60 [facility] LABORATORY Comment: The reported eGFR should be multiplied b y 1.2 for patients. The MDRD is not an appropriate measure o f renal function for patients with body mass extremes or in patients with acute kidney failure. http://Instablogs/DHnkdep http://Instablogs/DHMCnkf Specimen Anatomical Collection Method Collection Time Receive d Time (Source) Location / / Volume Laterality Blood specimen 08/09/2017 1:10 AM 018 1:19 (specimen) EST AM EST Resulting Agency Comment Spec In Lab Yonathan Smith MD CHEMISTRY ORDERABLES Performing Organization Address City/State/ZIP Code Phon e Number [address] POCT Glucose (08/09/2017 12:05 AM EST) athologist Signature POC Glucose 128 65 - 199 [facility] mg/dL [facility] LABORATORY Comment: Supplemental ranges: <140 mg/dL [...] [facility]/[place] [address] (ABNORMAL) POCT Glucose (08/08/2017 7:36 PM EST) athologist Signature POC Glucose 215 (H) 65 - 199 [place] mg/dL [facility] LABORATORY Comment: Supplemental ranges: <140 mg/dL [...] [facility]/[place] [address] (ABNORMAL) POCT Glucose (08/08/2017 6:23 PM EST) athologist Signature POC Glucose 216 (H) 65 - 199 [facility] mg/dL [facility] LABORATORY Comment: Supplemental ranges: <140 mg/dL [...] [facility]/[place] [address] (ABNORMAL) APTT (08/08/2017 6:00 PM EST) athologist Signature PTT 97 (H) 25 - 35 sec [facility] LABORATORY Comment: The recommended therapeutic range for fu ll dose, unfractionated heparin at [facility] is 80 ? 114 seconds. The use [...] [facility]/ZIP Code Phon e Number [address] POCT Glucose (08/08/2017 4:42 PM EST) athologist Signature POC Glucose 78 65 - 199 [facility] mg/dL [facility] LABORATORY Comment: Supplemental ranges: <140 mg/dL before meals <180 mg/dL all other times of the day Specimen Anatomical Collection Method Collection Time Receive d Time (Source) Location / / Volume Laterality Blood specimen 08/08/2017 4:42 PM 018 4:42 (specimen) EST PM EST Yonathan Smith MD POINT OF CARE TEST ORDERABLE S Performing Organization Address City/State/[place] [address] (ABNORMAL) POCT Glucose (08/08/2017 4:01 PM EST) athologist Signature POC Glucose 58 (L) 65 - 199 [facility] mg/dL [facility] LABORATORY Comment: Supplemental ranges: <140 mg/dL before meals <180 mg/dL all other times of the day Specimen Anatomical Collection Method Collection Time Receive d Time (Source) Location / / Volume Laterality Blood specimen 08/08/2017 4:01 PM 018 4:01 (specimen) EST PM EST Yonathan Smith MD POINT OF CARE TEST ORDERABLE S Performing Organization Address City/State/[place] [address] POCT Glucose (08/08/2017 11:51 AM EST) athologist Signature POC Glucose 90 65 - 199 [facility] mg/dL [facility] LABORATORY Comment: Supplemental ranges: <140 mg/dL before meals <180 mg/dL all other times of the day Specimen Anatomical Collection Method Collection Time Receive d Time (Source) Location / / Volume Laterality Blood specimen 08/08/2017 11:51 8 (specimen) AM EST 11:51 AM EST Yonathan Smith MD POINT OF CARE TEST ORDERABLE S Performing Organization Address City/State/[place] [address] (ABNORMAL) APTT (08/08/2017 10:27 AM EST) athologist Signature PTT 64 (H) 25 - 35 sec [facility] LABORATORY Comment: The recommended therapeutic range for fu ll dose, unfractionated heparin at [facility] is 80 ? 114 seconds. The use [...] Address City/State/ZIP Code Phon e Number [address] POCT Glucose (08/08/2017 8:02 AM EST) athologist Signature POC Glucose 178 65 - 199 [facility] mg/dL [facility] LABORATORY Comment: Supplemental ranges: <140 mg/dL before meals <180 mg/dL all other times of the day Specimen Anatomical Collection Method Collection Time Receive d Time (Source) Location / / Volume Laterality Blood specimen 08/08/2017 8:02 AM 018 8:02 (specimen) EST AM EST Yonathan Smith MD POINT OF CARE TEST ORDERABLE S Performing Organization Address City/State/[place] [address] (ABNORMAL) APTT (08/08/2017 4:51 AM EST) athologist Signature PTT >160 25 - 35 [facility] (Critical) sec [facility] LABORATORY Comment: Called by: HOWARD, Read back by: Melba Jaramillo, Date/Time:08/08/17 05:43. The recommended therapeutic range for fu ll dose, unfractionated heparin at [facility] is 80 ? 114 seconds. The use [...] City/State/ZIP Code Phon e Number [place] [id number] HOS[address] LAB[address]ORY Drive (ABNORMAL) Differential, Automated (08/08/2017 4:51 AM EST) [facility] gist Method Time Signature Neutrophils % 77.9 % [facility] LABORATORY Neutr Abs (ANC) 8.17 (H) 1.70 - [facility] 6.10 [facility] x10(3)/[facility] LABORATORY Lymphocytes % 10.3 % [facility] LABORATORY Lymphocytes Abs 1.1 0.9 - 3.2 [facility] x10(3)/[facility] LABORATORY Monocytes % 7.0 % [facility] LABORATORY Monocyte Abs 0.7 0.3 - 0.9 [facility] x10(3)/[facility] LABORATORY Eosinophils % 3.6 % [facility] LABORATORY Eosinophils Abs 0.4 0.0 - 0.4 [facility] x10(3)/[facility] LABORATORY Basophils % 0.5 % [facility] LABORATORY Basophils Abs 0.0 0.0 - 0.1 [facility] x10(3)/[facility] LABORATORY Immature Gran % 0.70 [...] Abs 0.07 (H) 0.00 - 0.04 x10(3)/[facility] LABORATORY Specimen Anatomical Collection Method Collection Time Receive d Time (Source) Location / / Volume Laterality Blood specimen 08/08/2017 4:51 AM 018 5:14 (specimen) EST AM EST Resulting Agency Comment Spec In Lab Yonathan Smith MD HEMATOLOGY ORDERABLES Performing Organization Address City/State/[place] [address] (ABNORMAL) Hemogram (08/08/2017 4:51 AM EST) Analysis Performed At Patho logist Time Signature WBC 10.5 (H) 4.0 - 9.5 [facility](3[facility] LABORATORY RBC 3.27 (L) 4.58 - [facility] 5.54 [facility] x10(6)/[facility] LABORATORY Hemoglobin 9.3 (L) 13.7 - [facility] 16.5 gm/dL [facility] LABORATORY Hematocrit 30.3 (L) 40.5 - [facility] 48.5 % [facility] LABORATORY MCV 92.7 82.9 - [facility] 93.1 [facility] LABORATORY MCH 28.4 27.5 - [place] 32.1 pg [facility] LABORATORY MCHC 30.7 (L) 32.0 - [place] 35.7 gm/dL [facility] LABORATORY Platelets 252 145 - 357 [facility] x10(3)/[facility] LABORATORY RDWSD 54.6 (H) 36.0 - [facility] RYAN 45.0 [facility] LABORATORY RDWCV 16.2 (H) 11.4 - [facility] [place]AN 13.8 % [facility] LABORATORY MPV 9.1 7.6 - 12.9 [facility] nRBC % Auto 0.0 % [facility] LABORATORY nRBC Abs Auto 0.000 0.000 - [facility] RYAN 0.000 [facility] x10(3)/[facility] LABORATORY Specimen Anatomical Collection Method Collection Time Receive d Time (Source) Location / / Volume Laterality Blood specimen 08/08/2017 4:51 AM 018 5:14 (specimen) EST AM EST Resulting Agency Comment Spec In Lab Yonathan Smith MD HEMATOLOGY ORDERABLES Performing Organization Address City/State/[place] [address] (ABNORMAL) Prothrombin Time (08/08/2017 [...] Organization Address City/State/[place] [address] (ABNORMAL) Basic Metabolic Panel (non-fasting) (08/08/2017 4:51 AM EST) athologist Signature Glucose Lvl 229 (H) 65 - 199 [facility] mg/dL [facility] LABORATORY Comment: Diabetes: >=200 mg/dL plus symp toms BUN 35 (H) 10 - 20 mg/dL [facility] LABORATORY Creatinine 1.57 (H) [...] mmol/L [facility] LABORATORY Calcium 7.9 (L) 8.5 - 10.5 mg/dL [facility] LABORATORY Estimated GFR 44 (L) >=60 [facility] LABORATORY Comment: The reported eGFR should be multiplied b y 1.2 for patients. The MDRD is not an appropriate measure o f renal function for patients with body mass extremes or in patients with acute kidney failure. http://Instablogs/DHnkdep http://Instablogs/DHMCnkf Specimen Anatomical Collection Method Collection Time Receive d Time (Source) Location / / Volume Laterality Blood specimen 08/08/2017 4:51 AM 018 5:14 (specimen) EST AM EST Resulting Agency Comment Spec In Lab Yonathan Smith MD CHEMISTRY ORDERABLES Performing Organization Address City/[facility]/ZIP Code Phon e Number [address] POCT Glucose (08/08/2017 4:20 AM EST) athologist Signature POC Glucose 193 65 - 199 [place] mg/dL [facility] LABORATORY Comment: Supplemental ranges: <140 mg/dL [...] [facility]/ZIP Code Phon e Number [address] POCT Glucose (08/07/2017 11:11 PM EST) athologist Signature POC Glucose 124 65 - 199 [place] mg/dL [facility] LABORATORY Comment: Supplemental ranges: <140 mg/dL [...] [facility]/[place] [address] HOSPITAL [address] Drive (ABNORMAL) APTT (08/07/2017 10:18 PM EST) athologist Signature PTT 114 (H) 25 - 35 sec [facility] LABOR[facility]ORY Comment: The recommended therapeutic range for fu ll dose, unfractionated heparin at [facility] is 80 ? 114 seconds. The use [...] [facility]/[place] [address] POCT Glucose (08/07/2017 8:10 PM EST) athologist Signature POC Glucose 140 65 - 199 [place] mg/dL [facility] LABORATORY Comment: Supplemental ranges: <140 mg/dL [...] [facility]/[place] [address] POCT Glucose (08/07/2017 5:27 PM EST) athologist Signature POC Glucose 187 65 - 199 [facility] Comment: Supplemental ranges: <140 mg/dL [...] [facility]/[place] [address] POCT Glucose (08/07/2017 3:29 PM EST) athologist Signature POC Glucose 86 65 - 199 [facility] mg/dL [facility] LAB[facility] Comment: Supplemental ranges: <140 mg/dL before meals <180 mg/dL all other times of the day Specimen Anatomical Collection Method Collection Time Receive d Time (Source) Location / / Volume Laterality Blood specimen 08/07/2017 3:29 PM 018 3:29 (specimen) EST PM EST Yonathan Smith MD POINT OF CARE TEST ORDERABLE S Performing Organization Address [facility] [place] [address] (ABNORMAL) APTT (08/07/2017 2:50 PM EST) athologist Signature PTT 60 (H) 25 - 35 sec [facility] Comment: The recommended therapeutic range for fu ll dose, unfractionated heparin at [facility] is 80 ? 114 seconds. The use [...] [facility]/ZIP [facility] [place] [address] (ABNORMAL) POCT Glucose (08/07/2017 2:23 PM EST) athologist Signature POC Glucose 55 (L) 65 - 199 [place] mg/dL [facility] LABORATORY Comment: Supplemental ranges: <140 mg/dL before meals <180 mg/dL all other times of the day Specimen Anatomical Collection Method Collection Time Receive d Time (Source) Location / / Volume Laterality Blood specimen 08/07/2017 2:23 PM 018 2:23 (specimen) EST PM EST Yonathan Smith MD POINT OF CARE TEST ORDERABLE S Performing Organization Address City/State/ZIP Code Phon e Number [address] POCT Glucose (08/07/2017 12:08 PM EST) athologist Signature POC Glucose 77 65 - 199 [place] mg/dL [facility] LABORATORY Comment: Supplemental ranges: <140 mg/dL before meals <180 mg/dL all other times of the day Specimen Anatomical Collection Method Collection Time Receive d Time (Source) Location / / Volume Laterality Blood specimen 08/07/2017 12:08 8 (specimen) PM EST 12:08 PM EST Yonathan Smith MD POINT OF CARE TEST ORDERABLE S Performing Organization Address City/State/ZIP Code Phon e Number [address] (ABNORMAL) Differential, Automated (08/07/2017 7:30 AM EST) [facility] gist Method Time Signature Neutrophils % 73.8 % [facility] LABORATORY Neutr Abs (ANC) 7.17 (H) 1.70 - [facility] 6.10 [facility] x10(3)/[facility] L LABORATORY Lymphocytes % 12.2 % [facility] LABORATORY Lymphocytes Abs 1.2 0.9 - 3.2 [facility] x10(3)/[facility] LABORATORY Monocytes % 9.0 % [facility] LABORATORY Monocyte Abs 0.9 0.3 - 0.9 [facility] x10(3)/[facility] LABORATORY Eosinophils % 3.9 % [facility] LABORATORY Eosinophils Abs 0.4 0.0 - 0.4 [facility] x10(3)/[facility] LABORATORY Basophils % 0.6 % [facility] LABORATORY Basophils Abs 0.1 0.0 - 0.1 [facility] x10(3)/[facility] LABORATORY Immature [...] Abs 0.05 (H) 0.00 - 0.04 x10(3)/[facility] LABORATORY Specimen Anatomical Collection Method Collection Time Receive d Time (Source) Location / / Volume Laterality Blood specimen 08/07/2017 7:30 AM 018 7:45 (specimen) EST AM EST Resulting Agency Comment Spec In Lab Yonathan Smith MD HEMATOLOGY ORDERABLES Performing Organization Address City/State/[place] [address] (ABNORMAL) Hemogram (08/07/2017 7:30 AM EST) Analysis Performed At Patho logist Time Signature WBC 9.7 (H) 4.0 - 9.5 [facility] x10(3)/[facility] LABORATORY RBC 3.54 (L) 4.58 - [place] 5.54 [facility] x10(6)/[facility] LABORATORY Hemoglobin 9.9 (L) 13.7 - [facility] 16.5 gm/dL [facility] LABORATORY Hematocrit 32.3 (L) 40.5 - [facility] [place]AN 48.5 % [facility] LABORATORY MCV 91.2 82.9 - [facility] 93.1 fL [facility] LABORATORY MCH 28.0 27.5 - [facility] 32.1 pg [facility] LABORATORY MCHC 30.7 (L) 32.0 - [facility] 35.7 gm/dL [facility] LABORATORY Platelets 312 145 - 357 [facility] x10(3)/[facility] LABORATORY RDWSD 53.2 (H) 36.0 - [facility] 45.0 [facility] LABORATORY RDWCV 16.0 (H) 11.4 - [facility] 13.8 % [facility] LABORATORY MPV 8.9 7.6 - 12.9 [facility] LABORATORY nRBC % Auto 0.0 % [facility] LABORATORY nRBC Abs Auto 0.000 0.000 - [facility] 0.000 [facility] x10(3)/[facility] LABORATORY Specimen Anatomical Collection Method Collection Time Receive d Time (Source) Location / / Volume Laterality Blood specimen 08/07/2017 7:30 AM 018 7:45 (specimen) EST AM EST Resulting Agency Comment Spec In Lab Yonathan Smith MD HEMATOLOGY ORDERABLES Performing Organization Address City/State/ZIP Code Phon e Number [place] [id number] Drive (ABNORMAL) Basic Metabolic Panel (non-fasting) (08/07/2017 7:30 AM EST) P athologist Signature Glucose Lvl 80 65 - 199 [facility] mg/dL [facility] LABORATORY Comment: Diabetes: >=200 mg/dL plus symp toms BUN 31 (H) 10 - 20 mg/dL [facility] LABORATORY Creatinine 1.22 0.80 [...] HOSPITAL LABORATORY Estimated GFR 59 (L) >=60 [facility] LABORATORY Comment: The reported eGFR should be multiplied b y 1.2 for patients. The MDRD is not an appropriate measure o f renal function for patients with body mass extremes or in patients with acute kidney failure. http://Instablogs/DHnkdep http://Instablogs/DHMCnkf Specimen Anatomical Collection Method Collection Time Receive d Time (Source) Location / / Volume Laterality Blood specimen 08/07/2017 7:30 AM 018 7:45 (specimen) EST AM EST Resulting Agency Comment Spec In Lab Yonathan Smith MD CHEMISTRY ORDERABLES Performing Organization Address City/[facility]/ZIP Code Phon e Number [address] POCT Glucose (08/07/2017 7:27 AM EST) P athologist Signature POC Glucose 81 65 - 199 [facility] mg/dL [facility] LABORATORY Comment: Supplemental ranges: <140 mg/dL [...] [facility]/ZIP Code Phon e Number [address] APTT (08/07/2017 7:04 AM EST) athologist Signature PTT 34 25 - 35 sec [facility] Comment: The recommended therapeutic range for fu ll dose, unfractionated heparin at [facility] is 80 ? 114 seconds. The use [...] Organization Address City/State/[place] [address] (ABNORMAL) Prothrombin Time (08/07/2017 [...] [facility]/[place] [address] POCT Glucose (08/07/2017 4:03 AM EST) athologist Signature POC Glucose 93 65 - 199 [facility] mg/dL [facility] Comment: Supplemental ranges: <140 mg/dL before meals <180 mg/dL all other times of the day Specimen Anatomical Collection Method Collection Time Receive d Time (Source) Location / / Volume Laterality Blood specimen 08/07/2017 4:03 AM 018 4:03 (specimen) EST AM EST Yonathan Smith MD POINT OF CARE TEST ORDERABLE S Performing Organization Address City/State/[place] [address] POCT Glucose (08/07/2017 12:04 AM EST) athologist Signature POC Glucose 107 65 - 199 [facility] mg/dL [facility] Comment: Supplemental ranges: <140 mg/dL [...] [facility]/ZIP Code Phon e Number [address] POCT Glucose (08/06/2017 7:56 PM EST) P athologist Signature POC Glucose 178 65 - 199 [facility] mg/dL [facility] LABORATORY Comment: Supplemental ranges: <140 mg/dL before meals <180 mg/dL all other times of the day Specimen Anatomical Collection Method Collection Time Receive d Time (Source) Location / / Volume Laterality Blood specimen 08/06/2017 7:56 PM 018 7:56 (specimen) EST PM EST Yonathan Smith MD POINT OF CARE TEST ORDERABLE S Performing Organization Address City/State/ZIP Code Phon e Number [address] [id number] (08/06/2017 2:32 PM EST) Component Value Ref Test Analysis Performed At Patholo gist Range Method Time Signature VB Text Department: Vascular Surgery Lab VASCUBASE Report Patient: [id number] (GREGORY HOANG) CPT: 2732361 ICD10: I99.8 Referring Physician: YONATHAN SMITH ?? [...] Provider: Mira Truong, [id number] (Given - Provider: Dory Truong, [...]
Routine documented in this encounter Care Teams Retrimmer Relationship Specialty Start Date End Date Lovely Vicente MD PCP - General 04/16/[address] [place] [address] documented as of this encounter
--- OUTSIDE RECORDS SUMMARY | 2022-03-16 08:18 | XMS_ITS | Encounter Summary ---
:1945 Author Organization [facility] [place] [address] Care Team Providers Name Role Phone Lovely Vicente MD Primary Care Provider Reason for Visit Auth/Cert Specialty Diagnoses / Procedures Referred By Contact Refer red To Contact Diagnoses Critical lower limb ischemia CELLULITIS RT FOOT Procedures EMERGENCY Referral ID Status Reason Start Date Expiration Date Visits Requ ested Visits Authorized [id number] 1 1 Encounter Details Date Type Department Care Team Description 08/11/2017 Surgery Main Operating Room Yonathan Smith (M SURG) DRESSING CHANGE Barbara Ocampo MD (FOR OTHER THAN IVAN) [facility] UNDER ANES. 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 [...] Dorsalis Pedis (Ankle) Artery ?132 ? 0.94 ??Tunica-Biphasic ? Posterior Tibial (Ankle) Artery ??154 ? 1.10 ??Tunica-Biphasic ? Fourth Toe ? 67 ?0.48 ?? [...] For any problems or questions please call [phone] ZELDA Smith, provider scribe Nurse Clinician For issues on weeknights after 5pm and weekends please call [phone] and ask for the Vascular Fellow environmental program manager. General Instructions None Future Appointments and Orders Future Appointments Provider Department Dept Phone 08/26/2017 4:00 PM Aurelia Rivera PA [facility] [place] [phone] 09/07/2017 3:00 PM LAB, THREE L Lab 3L [facility] [phone] 09/07/2017 4:00 PM Luz Prescott MD Endocrinology [facility] [place] [phone] 09/09/2017 8:00 AM Barbra Soares APRN Pain Management [facility] [place] [phone] Please bring a list of your current [...] For any problems or questions please call [phone] ZELDA Smith, provider scribe Nurse Clinician For issues on weeknights after 5pm and weekends please call [phone] and ask for the Vascular Fellow environmental program manager. documented in this encounter Medications at [...] [facility]) [address] [place] [address] Transportation: with (at bedside) Time of Discharge: by 12 noon Level of Care: swing Patient Aware: yes Family Notified: yes Md to call report to: Yissel Quintero WAYBILL CLERK already called RN to call report to: [phone] Shirin Wolf Office of Care Management Pager [phone] Shirin Wagner RN - 08/16/2017 10:50 AM EST [facility] has offered pt swing bed. Pt and accept bed. will transport via car. WAYBILL CLERK Yissel Quintero aware; d/c paperwork will be completed by 12 noon. [facility] requests pt arrival by 1400 today; WAYBILL CLERK, RN, and family aware. WAYBILL CLERK called [facility] and was told that they prefer pt to arrive with wound vac dressing applied but clamped. WAYBILL CLERK applied new wound vac dressing. RN has [facility] number to call report. PASSR completed; WAYBILL CLERK paged to request provider signature in highlighted [...] 08/16/2017 10:34 AM EST Office of Care Management/Assistant Manager Retail Patient Name: Gregory Hoang : 1945 Patient has been offered a swing bed at [facility]. The patient will be transported by private transportation. No MD to MD report necessary Please call Nursing Report to [phone], ask for board layer. Info to accompany patient: Narcotic Prescriptions Copies of Medication Administration Records and IV sheets for past 10 days. Plan: Assistant Manager Retail will be available to the patient and Investigator Welfare-RN and/or Therapeutic Recreation Specialist for further assistance. Patient will be discharged to: [facility] [address] [place] [address] [id number] Radha Powers, Assistant Manager Retail Mira Black, VAMSI - 08/15/2017 10:05 PM EST [address] Flores to ask if he wanted to hold metoprolol dose. BP 95/58. OK to hold this dose Courtney Brito - 08/15/2017 3:26 PM EST Office of Care Management(OCM)/Assistant Manager Retail(RS)/ D/C Planning re : Patient is medically [...] status. 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 Vac in place. Rehab referrals ongoing. Can ambulate in hallway. Change VAC at bedside today. Naty Colindres RN - 08/14/2017 1:33 PM EST Patient Name: Gregory Hoang Patient Age: 72 y.o. Birthdate: 1945 Admit date: 08/06/2017 Attending Physician: Yonathan Smith MD We want him to go to a place for intensive therapy and not at a shelter where he will be just sitting there and not getting any therapy. . Contacted by direct care RN, who said that patient and would like information about patient's referral to: [facility] PHONE: [phone] FAX: [phone] CM spoke with RS who said that [...] rehab. Await recommendations from PT. Covering pager #[phone]. 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 Lithograph Press Operator Kaitlin Saha, RN Pager #[phone] Payam Rosales - 08/13/2017 2:37 PM EST Extension Associate Encounter Note Patient Name: Gregory Hoang : [id number] MR#: [id number] Admit Date: 08/06/2017 1:41 PM Hospital Day 7 days Narrative: Visited to introduce and assess acceptance of Extension Associate services. Pt was awake, alert, oriented and in chair and family was there. Assessment:Patient coping positively with stresses of illness/hospitalization at this time. Pt says that he is hoping to get better and his family was there. Pt says that he has family care and supportand taking one day at time. Intervention and Outcome: Provided emotional support and encouraging presence. 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 A letter describing our affiliations was reviewed with them and theywere educated about their right to choose where referrals are placed. Patient requests referral to [facility] [employer]. PHONE: [phone] FAX: [phone]. And Home NPWT (Negative Pressure Wound Therapy) aka wound vac device made available to pt. Serial # confirmed. Reviewed [facility] Proof of Delivery/Assignment of Benefits Statement(POD/AOB) Form w patient or authorized agent signing on behalf of patient. Copy of POD/AOB provided to pt and other copy faxed to [employer] @ fax# [phone] Expected date of discharge: 08/12/2017. 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 Address: [address] [place] [address] [place] [address] (home) Mobile: Telephone Information: Referring Provider: No [...] SETUP performed by Manny Mcknight MD at [facility] MAIN OR ??? PRO CABG, ARTERIAL, SINGLE N/A 07/07/2017 @CABG, USING ARTERIAL GRAFT;SINGLE ARTERIAL GRAFT (WRVU 33.75) performed by Yuan Retana MD at [facility] MAIN OR ??? PRO CABG, ARTERY-VEIN, TWO N/A 07/07/2017 @CABG, TWO VENOUS GRAFTS & ARTERIAL GRAFT (WRVU 7.93) performed by Yuan Retana MD at [facility] MAIN OR ??? PRO COLONOSCOPY, REMV LESN, SNARE 01/16/2014 COLONOSCOPY, POLYPECTOMY, REMOVAL LESION BY SNARE performed by Nohemi Jaimes MD at [facility] ENDOSCOPY ??? PRO ENDOSCOPY W/VIDEO-ASST VEIN HARVEST, CABG Right 07/07/2017 ENDOSCOPIC HARVEST VEIN(S) FOR CABG (WRVU 0.31) performed by Yaun Retana MD at [facility] MAIN OR ??? 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 Heparin gtt continues to run. Pt [...] of : 1945 AGE 72 y.o. Address: [address] [place] [address] [place] [address] (home) Mobile: Telephone Information: Referring Provider: No [...] SETUP performed by Manny Mcknight MD at [facility] MAIN OR ??? PRO CABG, ARTERIAL, SINGLE N/A 07/07/2017 @CABG, USING ARTERIAL GRAFT;SINGLE ARTERIAL GRAFT (WRVU 33.75) performed by Yuan Retana MD at [facility] MAIN OR ??? PRO CABG, ARTERY-VEIN, TWO N/A 07/07/2017 @CABG, TWO VENOUS GRAFTS & ARTERIAL GRAFT (WRVU 7.93) performed by Yuan Retana MD at [facility] OR ??? PRO COLONOSCOPY, REMV LESN, SNARE 01/16/2014 COLONOSCOPY, POLYPECTOMY, REMOVAL LESION BY SNARE performed by Nohemi Jaimes MD at [facility] ENDOSCOPY ??? PRO ENDOSCOPY W/VIDEO-ASST VEIN HARVEST, CABG Right 07/07/2017 ENDOSCOPIC HARVEST VEIN(S) FOR CABG (WRVU 0.31) performed by Yuan Retana MD at [facility] MAIN OR ??? 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 Unsuccessful draw attempt, another high school admissions representative will come [facility] to collect blood for PTT test. 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 Vascular resident environmental program manager and will forward result to the team prior to rounds. 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 Pt is ready for the OR. 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 [...] SETUP performed by Manny Mcknight MD at [facility] MAIN OR ??? PRO CABG, ARTERIAL, SINGLE N/A 07/07/2017 @CABG, USING ARTERIAL GRAFT;SINGLE ARTERIAL GRAFT (WRVU 33.75) performed by Yuan Retana MD at [facility] MAIN OR ??? PRO CABG, ARTERY-VEIN, TWO N/A 07/07/2017 @CABG, TWO VENOUS GRAFTS & ARTERIAL GRAFT (WRVU 7.93) performed by Yuan Retana MD at [facility] MAIN OR ??? PRO COLONOSCOPY, REMV LESN, SNARE 01/16/2014 COLONOSCOPY, POLYPECTOMY, REMOVAL LESION BY SNARE performed by Nohemi Jaimes MD at [facility] ENDOSCOPY ??? PRO ENDOSCOPY W/VIDEO-ASST VEIN HARVEST, CABG Right 07/07/2017 ENDOSCOPIC HARVEST VEIN(S) FOR CABG (WRVU 0.31) performed by Yuan Retana MD at [facility] MAIN OR ??? PRO THYROIDECTOMY 03/28/2013 THYROIDECTOMY, TOTAL OR COMPLETE performed by Manny Mcknight MD at [facility] MAIN OR Functional Status/Social Hx: Quit smoking [...] left blue toes with CTA showing R CULINARY WORKER pseudoaneurysm (now thrombosed) and occluded ATs [...] 2.5x80 5. Completion RLE angiogram 6. L CULINARY WORKER angiogram 7. 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 - L CULINARY WORKER angriogram demonstrated: High femoral bifurcation over the proximal half of the femoral head. L CULINARY WORKER access in the distal L CULINARY WORKER. - Closure device: Mynx Technical Procedure: [...] for a 45cm 5F Destination. V18 and Medina and QuickCross catheters were used to select [...] 5F. A stationed picture of the L CULINARY WORKER was performed as the patient was noted to have a very high bifurcation. Access appeared in the distal R CULINARY WORKER. Closure and sheath removal was performed [...] PM EST 1440 report called to 5 new [place] nurse Tessa AGUSTIN documented in this encounter [...] sit/sit to supine -- Bed Mobility Goal, [place] Level independent -- Bed Mobility Goal, Date [...] days -- Transfer Training Goal, Activity Type ale-ul-ngobm/fgfon-fe-xwu -- Transfer Train Goal, [place] Level conditional independence -- Transfer Train Goal, [...] call cabello within reach, Hourly rounding by RN/INTERIOR WIRER. Bed alarm / Chair alarm. Patient-specific fall [...] Operative Note Patient Name: Gregory Hoang : [id number] MR#: [id number] Case Date: 08/09/2017 Surgeon: Surgeon(s) and Role: [...] 2.5x80 5. Completion RLE angiogram 6. L CULINARY WORKER angiogram 7. Mynx closure Precautions/Restrictions: fall, [...] other (see comments) (or swing bed) Pager: [phone] BASSAM ELIAS, PT 08/14/2017 Inpatient Physical Therapy [...] to Achieve by discharge Gait Training Goal, [place] Level conditional independence;set up required Gait Training [...] choices are: 1- [facility] PHONE: [phone] FAX: [phone] 2- [facility] [place]) [address] [place] [address] 3- [facility])([facility]) [address] [place] [address] I have discussed Medicare/Private Insurance [...] RS/CM on Wednesday to follow-up. Covering pager #[phone] for today. Plan of Care - Henrique [...] Gregory Hoang at the request of Yonathan Simth MD for the evaluation of skin changes [...] with additional findings of pseudoaneurysm on R CULINARY WORKER and bilateral anterior tibial artery occlusions. [...] an outpatient once discharged. Have patient call [phone] to set up an appointment. Follow-up: Dermatology will sign-off for now. Please do not hesitate to contact us if you have any questions orconcerns. Impression and Recommendations discussed with primary team on 08/13/2017. Karo Henderson MD Resident in Dermatology Section of Dermatology, Department of Surgery [facility] Pager [phone] Patient seen and evaluated with staff Crts: Halima Cordero MD Section of Dermatology [facility] Level of Resident Supervision: [...] 2.5x80 5. Completion RLE angiogram 6. L CULINARY WORKER angiogram 7. Mynx closure Active Non-Hospital [...] home with home health ([facility] PT&OT) Pager: [phone] YASIR TELLO OT 08/12/2017 Occupational Therapy Rehabilitation [...] 2.5x80 5. Completion RLE angiogram 6. L CULINARY WORKER angiogram 7. Mynx closure Past Medical [...] with 24/7 assistance and maximal services) Pager: [phone] NICHOLAS MORA, JESSIE 08/12/2017 Physical Therapy Rehabilitation [...] sit/sit to supine -- Bed Mobility Goal, [place] Level independent -- Bed Mobility Goal, Outcome Achieved -- goal ongoing Goal: Gait Training Goal Stand Alone Therapy Goal Outcome: Ongoing (Interventions Implemented as Appropriate) 08/11/17 1310 08/12/17 1510 Gait Training Goal Gait Training Goal, Date Established 08/11/17 -- Gait Training Goal, Time to Achieve 5 - 7 days -- Gait Training Goal, [place] Level conditional independence -- Gait Training Goal, [...] days -- Transfer Training Goal, Activity Type xly-kd-ehgsj/sxdpd-mz-ury -- Transfer Train Goal, [place] Level conditional independence -- Transfer Training Goal, [...] Operative Note Patient Name: Gregory Hoang : [id number] MR#: [id number] Case Date: 08/11/2017 Surgeon: Surgeon(s) and Role: [...] 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 Completion RLE angiogram 6. L CULINARY WORKER angiogram 7. Mynx closure He is [...] Anticipated Discharge Disposition: inpatient rehabilitation facility Pager: [phone] LAWRENCE GONZALEZ, PT 08/11/2017 Physical Therapy Rehabilitation [...] to sit/sit to supine Bed Mobility Goal, [place] Level independent Goal: Gait Training Goal Stand Alone Therapy Goal Outcome: Ongoing (Interventions Implemented as Appropriate) 08/11/17 1310 Gait Training Goal Gait Training Goal, Date Established 08/11/17 Gait Training Goal, Time to Achieve 5 - 7 days Gait Training Goal, [place] Level conditional independence Gait Training Goal, Assist [...] 7 days Transfer Training Goal, Activity Type yuj-yp-annhp/buaed-ws-ddb Transfer Train Goal, [place] Level conditional independence Plan of Care - [...] call cabello within reach, Hourly rounding by RN/INTERIOR WIRER. Bed alarm / Chair alarm. ? Patient-specific [...] Advance Care Planning: on file Kisha Hoang [facility] [phone] Current Coping/Education/Information Needs: pt and spouse state [...] Health/Prescription Coverage: Primary Insurance: MEDICARE Secondary Insurance: [place] Prescription Coverage: See above Preferred Pharmacy: [facility] Other: N/A Primary Care Provider: Lovely Vicente MD [phone] Patient/Caregiver Goals of Treatment: Patient plans to [...] of care planning. Kaitlin Saha RN Pager: [phone] Plan of Care - Melba Jaramillo RN [...] Overview Goal: Plan of Care Review 08/08/17 8644 Coping/Psychosocial Plan Of Care Reviewed With patient [...] as documented. Plan of Care - Barbara Alebrt RN - 08/07/2017 4:52 PM EST Problem: [...] monitoring]: Bed locked in low position, call caebllo within reach, Hourly rounding by RN/INTERIOR WIRER. Bed alarm / Chair alarm. Patient-specific fall [...] at bedside and MD TEAM Carrying pager [phone] contacted (via Radio page) and notified of [...] MD [facility] [address] [place], [place] [address] (Wo rk) 05/28/2022 Appointment Cardiology Zulma Dolan MD [facility] [address] [place], [place] [address] (Wo rk) 05/28/2022 Laboratory Appointment Lab 05/28/2022 Office Visit Cardiology Zulma Dolan [place] [address] Liz Poole PA [facility] [place] [address] 06/10/2022 Office Visit Dermatology Laura Scherer MD [facility] DR TEJA [address]MAT [place], [place] [address] (Wo rk) documented as [...] Signature POC Glucose 160 65 - 199 [facility] mg/dL [facility] Comment: Supplemental ranges: <140 mg/dL before meals <180 mg/dL all other times of the day Specimen Anatomical Collection Method Collection Time Receive d Time (Source) Location / / Volume Laterality Blood specimen 08/16/2017 7:28 AM 018 7:28 (specimen) EST AM EST Yonathan Smith MD POINT OF CARE TEST ORDERABLE S Performing Organization Address City/State/[place] [address] (ABNORMAL) Differential, Automated (08/16/2017 5:08 AM EST) [facility] gist Method Time Signature Neutrophils % 73.9 % [facility]OR[facility]ORY Neutr Abs (ANC) 5.37 1.70 - [facility] 6.10 [facility] x10(3)/[facility] LABORATORY Lymphocytes % 10.1 % [facility] Lymphocytes Abs 0.7 (L) 0.9 - 3.2 [facility] x10(3)/[facility] LABORATORY Monocytes % 10.1 % [facility]OR[facility] Monocyte Abs 0.7 0.3 - 0.9 [facility] x10(3)/[facility] LABORATORY Eosinophils % 5.1 % [facility] Eosinophils Abs 0.4 0.0 - 0.4 [facility] x10(3)/[facility] LABORATORY Basophils % 0.4 % [facility]OR[facility] Basophils Abs 0.0 0.0 - 0.1 [facility] x10(3)/[facility] LABORATORY Immature Gran % 0.40 % [facility] [...] [facility] MAR Y [facility] LABORATORY Specimen Anatomical Collection Method Collection Time Receive d Time (Source) Location / / Volume Laterality Blood specimen 08/16/2017 5:08 AM 018 5:20 (specimen) EST AM EST Resulting Agency Comment Spec In Lab Yonathan Smith MD HEMATOLOGY ORDERABLES Performing Organization Address City/State/ZIP Code Phon e Number [address] (ABNORMAL) Hemogram (08/16/2017 5:08 AM EST) Analysis Performed At Patho logist Time Signature WBC 7.3 4.0 - 9.5 [facility] x[facility](3[facility] LABORATORY RBC 3.36 (L) 4.58 - [facility] 5.54 [facility] x10(6)/[facility] LABORATORY Hemoglobin 9.7 (L) 13.7 - [facility] 16.5 gm/dL [facility] Hematocrit 30.3 (L) 40.5 - [facility] 48.5 % [facility] MCV 90.2 82.9 - [facility] 93.1 [facility] LABORATORY MCH 28.9 27.5 - [place] 32.1 pg [facility] MCHC 32.0 32.0 - [place] [place] 35.7 gm/dL [facility] Platelets 282 145 - 357 [facility] x10(3)/[facility] LABORATORY RDWSD 53.9 (H) 36.0 - [facility] RYAN 45.0 [facility] LABORATORY RDWCV 16.5 (H) 11.4 - [facility] RYAN 13.8 % [facility] LABOR[facility] MPV 9.0 7.6 - 12.9 [facility] LABORATORY nRBC % Auto 0.0 % [facility] LABORATORY nRBC Abs Auto 0.000 0.000 - [place] 0.000 [facility] x10(3)/[facility] LABORATORY Specimen Anatomical Collection Method Collection Time Receive d Time (Source) Location / / Volume Laterality Blood specimen 08/16/2017 5:08 AM 018 5:20 (specimen) EST AM EST Resulting Agency Comment Spec In Lab Yonathan Smith MD HEMATOLOGY ORDERABLES Performing Organization Address City/State/ZIP Code Phon e Number [facility] [place] [address] (ABNORMAL) Basic Metabolic Panel (non-fasting) (08/16/2017 5:08 AM EST) P athologist Signature Glucose Lvl 141 65 - 199 [facility] mg/dL [facility] Comment: Diabetes: >=200 mg/dL plus symp toms BUN 29 (H) 10 - 20 mg/dL [facility] Creatinine 1.25 0.80 - 1.50 mg/dL [facility] [...] or in patients with acute kidney failure. [email or web address]://[email or web address]/DHnkdep [email or web address]://Topio.[email or web address]/[email or web address] Specimen Anatomical Collection Method Collection Time Receive d Time (Source) Location / / Volume Laterality Blood specimen 08/16/2017 5:08 AM 018 5:20 (specimen) EST AM EST Resulting Agency Comment Spec In Lab Yonathan Smith MD CHEMISTRY ORDERABLES Performing Organization Address City/State/ZIP Code Phon e Number [address] (ABNORMAL) Prothrombin Time (08/16/2017 [...] Address City/State/ZIP Code Phon e Number [address] POCT Glucose (08/16/2017 4:09 AM EST) athologist Signature POC Glucose 147 65 - 199 [facility] mg/dL [facility] Comment: Supplemental ranges: <140 mg/dL before meals <180 mg/dL all other times of the day Specimen Anatomical Collection Method Collection Time Receive d Time (Source) Location / / Volume Laterality Blood specimen 08/16/2017 4:09 AM 018 4:09 (specimen) EST AM EST Yonathan Smith MD POINT OF CARE TEST ORDERABLE S Performing Organization Address City/State/ZIP Code Phon e Number [address] POCT Glucose (08/15/2017 11:56 PM EST) athologist Signature POC Glucose 176 65 - 199 [facility] LABORATORY Comment: Supplemental ranges: <140 mg/dL before meals <180 mg/dL all other times of the day Specimen Anatomical Collection Method Collection Time Receive d Time (Source) Location / / Volume Laterality Blood specimen 08/15/2017 11:56 8 (specimen) PM EST 11:56 PM EST Yonathan Smith MD POINT OF CARE TEST ORDERABLE S Performing Organization Address City/State/[place] [address] POCT Glucose (08/15/2017 8:05 PM EST) athologist Signature POC Glucose 136 65 - 199 [place] mg/dL [facility] LABORATORY Comment: Supplemental ranges: <140 mg/dL before meals <180 mg/dL all other times of the day Specimen Anatomical Collection Method Collection Time Receive d Time (Source) Location / / Volume Laterality Blood specimen 08/15/2017 8:05 PM 018 8:05 (specimen) EST PM EST Yonathan Smith MD POINT OF CARE TEST ORDERABLE S Performing Organization Address City/[facility]/[place] [address] (ABNORMAL) POCT Glucose (08/15/2017 4:50 PM EST) athologist Signature POC Glucose 232 (H) 65 - 199 [place] mg/dL [facility] LABORATORY Comment: Supplemental ranges: <140 mg/dL before meals <180 mg/dL all other times of the day Specimen Anatomical Collection Method Collection Time Receive d Time (Source) Location / / Volume Laterality Blood specimen 08/15/2017 4:50 PM 018 4:50 (specimen) EST PM EST Yonathan Smith MD POINT OF CARE TEST ORDERABLE S Performing Organization Address City/State/[place] [address] POCT Glucose (08/15/2017 12:04 PM EST) athologist Signature POC Glucose 135 65 - 199 [place] mg/dL [facility] LABORATORY Comment: Supplemental ranges: <140 mg/dL before meals <180 mg/dL all other times of the day Specimen Anatomical Collection Method Collection Time Receive d Time (Source) Location / / Volume Laterality Blood specimen 08/15/2017 12:04 8 (specimen) PM EST 12:04 PM EST Yonathan Smith MD POINT OF CARE TEST ORDERABLE S Performing Organization Address City/State/ZIP Code Phon e Number [address] POCT Glucose (08/15/2017 7:36 AM EST) P athologist Signature POC Glucose 124 65 - 199 [facility] mg/dL [facility] LABORATORY Comment: Supplemental ranges: <140 mg/dL before meals <180 mg/dL all other times of the day Specimen Anatomical Collection Method Collection Time Receive d Time (Source) Location / / Volume Laterality Blood specimen 08/15/2017 7:36 AM 018 7:36 (specimen) EST AM EST Yonathan Smith MD POINT OF CARE TEST ORDERABLE S Performing Organization Address City/State/ZIP Code Phon e Number [address] (ABNORMAL) Differential, Automated (08/15/2017 6:22 AM EST) Patholo gist Method Time Signature Neutrophils % 76.1 % [facility] LABORATORY Neutr Abs (ANC) 6.62 (H) 1.70 - [facility] 6.10 [facility] x10(3)/[facility] LABORATORY Lymphocytes % 9.3 % [facility] LABORATORY Lymphocytes Abs 0.8 (L) 0.9 - 3.2 [facility] x10(3)/[facility] LABORATORY Monocytes % 9.4 % [facility] LABORATORY Monocyte Abs 0.8 0.3 - 0.9 [facility] x10(3)/[facility] LABORATORY Eosinophils % 4.0 % [facility] LABORATORY Eosinophils Abs 0.4 0.0 - 0.4 [facility] x10(3)/[facility] LABORATORY Basophils % 0.6 % [facility] LABORATORY Basophils Abs 0.0 0.0 - 0.1 [facility] x10(3)/[facility] LABORATORY Immature Gran [...] Abs 0.05 (H) 0.00 - 0.04 x10(3)/[facility] LABORATORY Specimen Anatomical Collection Method Collection Time Receive d Time (Source) Location / / Volume Laterality Blood specimen 08/15/2017 6:22 AM 018 6:33 (specimen) EST AM EST Resulting Agency Comment Spec In Lab Yonathan Smith MD HEMATOLOGY ORDERABLES Performing Organization Address City/State/[place] [address] (ABNORMAL) Hemogram (08/15/2017 6:22 AM EST) Analysis Performed At Patho logist Time Signature WBC 8.7 4.0 - 9.5 [facility] x10(3)/[facility] LABORATORY RBC 3.21 (L) 4.58 - [facility] 5.54 [facility] x10(6)/[facility] LABORATORY Hemoglobin 9.1 (L) 13.7 - [facility] 16.[facility] gm/dL [facility] LABORATORY Hematocrit 29.0 (L) 40.5 - [facility] 48.5 % [facility] LABORATORY MCV 90.3 82.9 - [facility] 93.1 [facility] LABORATORY MCH 28.3 27.5 - [facility] 32.1 pg [facility] LABORATORY MCHC 31.4 (L) 32.0 - [facility] 35.7 gm/dL [facility] LABORATORY Platelets 254 145 - 357 [facility] x10(3)/[facility] LABORATORY RDWSD 53.9 (H) 36.0 - [facility] 45.0 [facility] LABORATORY RDWCV 16.3 (H) 11.4 - [facility] 13.8 % [facility] LABORATORY MPV 8.8 7.6 - 12.9 [facility] LABORATORY nRBC % Auto 0.0 % [facility] LABORATORY nRBC Abs Auto 0.000 0.000 - [facility] 0.000 [facility] x10(3)/[facility] LABORATORY Specimen Anatomical Collection Method Collection Time Receive d Time (Source) Location / / Volume Laterality Blood specimen 08/15/2017 6:22 AM 018 6:33 (specimen) EST AM EST Resulting Agency Comment Spec In Lab Yonathan Smith MD HEMATOLOGY ORDERABLES Performing Organization Address City/State/[place] [address] (ABNORMAL) Basic Metabolic Panel (non-fasting) (08/15/2017 6:22 AM EST) athologist Signature Glucose Lvl 118 65 - 199 [facility] mg/dL [facility] LABORATORY Comment: Diabetes: [...] or in patients with acute kidney failure. [email or web address] [email or web address] Specimen Anatomical Collection Method Collection Time Receive d Time (Source) Location / / Volume Laterality Blood specimen 08/15/2017 6:22 AM 018 6:33 (specimen) EST AM EST Resulting Agency Comment Spec In Lab Yonathan Smith MD CHEMISTRY ORDERABLES Performing Organization Address City/[facility]/[place] [address] (ABNORMAL) Prothrombin Time (08/15/2017 [...] HEMATOLOGY ORDERABLES Performing Organization Address City/[facility]/[place] [address] POCT Glucose (08/15/2017 4:33 AM EST) P athologist Signature POC Glucose 164 65 - 199 [facility] mg/dL [facility] LABORATORY Comment: Supplemental ranges: <140 mg/dL before meals <180 mg/dL all other times of the day Specimen Anatomical Collection Method Collection Time Receive d Time (Source) Location / / Volume Laterality Blood specimen 08/15/2017 4:33 AM 018 4:33 (specimen) EST AM EST Yonathan Smith MD POINT OF CARE TEST ORDERABLE S Performing Organization Address City/[facility]/[place] [address] POCT Glucose (08/15/2017 12:12 AM EST) athologist Signature POC Glucose 89 65 - 199 [facility] mg/dL [facility] LABORATORY Comment: Supplemental ranges: <140 mg/dL before meals <180 mg/dL all other times of the day Specimen Anatomical Collection Method Collection Time Receive d Time (Source) Location / / Volume Laterality Blood specimen 08/15/2017 12:12 8 (specimen) AM EST 12:12 AM EST Yonathan Smith MD POINT OF CARE TEST ORDERABLE S Performing Organization Address City/State/[place] [address] (ABNORMAL) POCT Glucose (08/14/2017 8:07 PM EST) athologist Signature POC Glucose 204 (H) 65 - 199 [facility] mg/dL [facility] LABORATORY Comment: Supplemental ranges: <140 mg/dL before meals <180 mg/dL all other times of the day Specimen Anatomical Collection Method Collection Time Receive d Time (Source) Location / / Volume Laterality Blood specimen 08/14/2017 8:07 PM 018 8:07 (specimen) EST PM EST Yonathan Smith MD POINT OF CARE TEST ORDERABLE S Performing Organization Address City/State/[place] [address] POCT Glucose (08/14/2017 5:11 PM EST) athologist Signature POC Glucose 174 65 - 199 [facility] mg/dL [facility] LABORATORY Comment: Supplemental ranges: <140 mg/dL before meals <180 mg/dL all other times of the day Specimen Anatomical Collection Method Collection Time Receive d Time (Source) Location / / Volume Laterality Blood specimen 08/14/2017 5:11 PM 018 5:11 (specimen) EST PM EST Yonathan Smith MD POINT OF CARE TEST ORDERABLE S Performing Organization Address City/State/[place] [address] POCT Glucose (08/14/2017 12:10 PM EST) athologist Signature POC Glucose 141 65 - 199 [facility] mg/dL [facility] LABORATORY Comment: Supplemental ranges: <140 mg/dL before meals <180 mg/dL all other times of the day Specimen Anatomical Collection Method Collection Time Receive d Time (Source) Location / / Volume Laterality Blood specimen 08/14/2017 12:10 8 (specimen) PM EST 12:10 PM EST Yonathan Smith MD POINT OF CARE TEST ORDERABLE S Performing Organization Address City/State/ZIP Code Phon e Number [address] POCT Glucose (08/14/2017 8:07 AM EST) athologist Signature POC Glucose 158 65 - 199 [facility] mg/dL [facility] LABORATORY Comment: Supplemental ranges: <140 mg/dL before meals <180 mg/dL all other times of the day Specimen Anatomical Collection Method Collection Time Receive d Time (Source) Location / / Volume Laterality Blood specimen 08/14/2017 8:07 AM 018 8:07 (specimen) EST AM EST Yonathan Smith MD POINT OF CARE TEST ORDERABLE S Performing Organization Address City/State/ZIP Code Phon e Number [address] (ABNORMAL) Differential, Automated (08/14/2017 4:52 AM EST) [facility] gist Method Time Signature Neutrophils % 78.6 % [facility] LABORATORY Neutr Abs (ANC) 7.70 (H) 1.70 - [facility] 6.10 [facility] x10(3)/[facility] L LABORATORY Lymphocytes % 7.8 % [facility] LABORATORY Lymphocytes Abs 0.8 (L) 0.9 - 3.2 [facility] x10(3)/[facility] LABORATORY Monocytes % 8.8 % [facility] LABORATORY Monocyte Abs 0.9 0.3 - 0.9 [facility] x10(3)/[facility] LABORATORY Eosinophils % 4.0 % [facility] LABORATORY Eosinophils Abs 0.4 0.0 - 0.4 [facility] x10(3)/[facility] LABORATORY Basophils % 0.5 % [facility] LABORATORY Basophils Abs 0.0 0.0 - 0.1 [facility] x10(3)/[facility] LABORATORY Immature Gran % 0.30 % [...] [facility] MAR Y [facility] LABORATORY Specimen Anatomical Collection Method Collection Time Receive d Time (Source) Location / / Volume Laterality Blood specimen 08/14/2017 4:52 AM 018 5:08 (specimen) EST AM EST Resulting Agency Comment Spec In Lab Yonathan Smith MD HEMATOLOGY ORDERABLES Performing Organization Address City/State/[place] [address] (ABNORMAL) Hemogram (08/14/2017 4:52 AM EST) Analysis Performed At Patho logist Time Signature WBC 9.8 (H) 4.0 - 9.5 [facility] x10(3)/[facility] LABORATORY RBC 3.32 (L) 4.58 - [facility] 5.54 [facility] x10(6)/[facility] LABORATORY Hemoglobin 9.5 (L) 13.7 - [facility] 16.5 gm/dL [facility] LABORATORY Hematocrit 30.3 (L) 40.5 - [facility] RYAN 48.5 % [facility] LABORATORY MCV 91.3 82.9 - [facility] 93.1 fL [facility] LABORATORY MCH 28.6 27.5 - [place] 32.1 pg [facility] LABORATORY MCHC 31.4 (L) 32.0 - [facility] 35.7 gm/dL [facility] LABORATORY Platelets 263 145 - 357 [facility] x10(3)/[facility] LABORATORY RDWSD 54.8 (H) 36.0 - [facility] 45.0 [facility] LABORATORY RDWCV 16.5 (H) 11.4 - [facility] 13.8 % [facility] LABORATORY MPV 9.1 7.6 - 12.9 [facility] LABORATORY nRBC % Auto 0.0 % [facility] LABORATORY nRBC Abs Auto 0.000 0.000 - [facility] RYAN 0.000 [facility] x10(3)/[facility] LABORATORY Specimen Anatomical Collection Method Collection Time Receive d Time (Source) Location / / Volume Laterality Blood specimen 08/14/2017 4:52 AM 018 5:08 (specimen) EST AM EST Resulting Agency Comment Spec In Lab Yonathan Smith MD HEMATOLOGY ORDERABLES Performing Organization Address City/[facility] [place] [address] (ABNORMAL) Prothrombin Time (08/14/2017 [...] HEMATOLOGY ORDERABLES Performing Organization Address City/[facility] [place] [address] (ABNORMAL) Basic Metabolic Panel (non-fasting) (08/14/2017 4:52 AM EST) P athologist Signature Glucose Lvl 135 65 - 199 [facility] mg/dL [facility] LABORATORY Comment: Diabetes: >=200 mg/dL plus symp toms BUN 25 (H) 10 - 20 mg/dL [facility] LABORATORY Creatinine 1.36 0.80 - 1.50 mg/dL [facility] [...] or in patients with acute kidney failure. [email or web address] [email or web address] Specimen Anatomical Collection Method Collection Time Receive d Time (Source) Location / / Volume Laterality Blood specimen 08/14/2017 4:52 AM 018 5:08 (specimen) EST AM EST Resulting Agency Comment Spec In Lab Yonathan Smith MD CHEMISTRY ORDERABLES Performing Organization Address City/State/[place] [address] POCT Glucose (08/14/2017 3:56 AM EST) P athologist Signature POC Glucose 135 65 - 199 [facility] mg/dL [facility] LABORATORY Comment: Supplemental ranges: <140 mg/dL before meals <180 mg/dL all other times of the day Specimen Anatomical Collection Method Collection Time Receive d Time (Source) Location / / Volume Laterality Blood specimen 08/14/2017 3:56 AM 018 3:56 (specimen) EST AM EST Yonathan Smith MD POINT OF CARE TEST ORDERABLE S Performing Organization Address City/State/[place] [address] POCT Glucose (08/13/2017 11:13 PM EST) athologist Signature POC Glucose 118 65 - 199 [place] mg/dL [facility] LABORATORY Comment: Supplemental ranges: <140 mg/dL before meals <180 mg/dL all other times of the day Specimen Anatomical Collection Method Collection Time Receive d Time (Source) Location / / Volume Laterality Blood specimen 08/13/2017 11:13 8 (specimen) PM EST 11:13 PM EST Yonathan Smith MD POINT OF CARE TEST ORDERABLE S Performing Organization Address City/[facility]/[place] [address] (ABNORMAL) POCT Glucose (08/13/2017 8:08 PM EST) athologist Signature POC Glucose 204 (H) 65 - 199 [place] mg/dL [facility] LABORATORY Comment: Supplemental ranges: <140 mg/dL before meals <180 mg/dL all other times of the day Specimen Anatomical Collection Method Collection Time Receive d Time (Source) Location / / Volume Laterality Blood specimen 08/13/2017 8:08 PM 018 8:08 (specimen) EST PM EST Yonathan Smith MD POINT OF CARE TEST ORDERABLE S Performing Organization Address City/State/[place] [address] POCT Glucose (08/13/2017 4:02 PM EST) athologist Signature POC Glucose 145 65 - 199 [place] mg/dL [facility] LABORATORY Comment: Supplemental ranges: <140 mg/dL before meals <180 mg/dL all other times of the day Specimen Anatomical Collection Method Collection Time Receive d Time (Source) Location / / Volume Laterality Blood specimen 08/13/2017 4:02 PM 018 4:02 (specimen) EST PM EST Yonathan Smith MD POINT OF CARE TEST ORDERABLE S Performing Organization Address City/State/ZIP Code Phon e Number [address] POCT Glucose (08/13/2017 11:31 AM EST) athologist Signature POC Glucose 179 65 - 199 [facility] mg/dL [facility] LABORATORY Comment: Supplemental ranges: <140 mg/dL before meals <180 mg/dL all other times of the day Specimen Anatomical Collection Method Collection Time Receive d Time (Source) Location / / Volume Laterality Blood specimen 08/13/2017 11:31 8 (specimen) AM EST 11:31 AM EST Yonathan Smith MD POINT OF CARE TEST ORDERABLE S Performing Organization Address City/[facility]/[place] [address] (ABNORMAL) POCT Glucose (08/13/2017 10:16 AM EST) athologist Signature POC Glucose 211 (H) 65 - 199 [facility] mg/dL [facility] LABORATORY Comment: Supplemental ranges: <140 mg/dL before meals <180 mg/dL all other times of the day Specimen Anatomical Collection Method Collection Time Receive d Time (Source) Location / / Volume Laterality Blood specimen 08/13/2017 10:16 8 (specimen) AM EST 10:16 AM EST Yonathan Smith MD POINT OF CARE TEST ORDERABLE S Performing Organization Address City/State/ZIP Code Phon e Number [address] JULIAN, legs, multiple levels (08/13/2017 7:42 AM EST) Component Value Ref Test Analysis Performed At [facility] gist Range Method Time Signature VB Text Department: Vascular Surgery Lab VASCUBASE Report Patient: [id number] (GREGORY HOANG) CPT: 96652 ICD10: I99.8 Referring Physician: YONATHAN SMITH ?? Indications: s/p R 1,2,3 toe amps with red left foot, need n ew baseline Diabetes mellitus: yes ICD10 Diagnosis Code: I99.8 Findings: Right ?Pressure (mm Hg) ?? JULIAN ??Waveform ?TBI ?? Brachial Artery ?138 ? Dorsalis Pedis (Ankle) Arter y ?132 ? 0.94 ??Tunica- Biphasic ? Posterior Tibial (Ankle) Art anila ??154 ? 1.10 ??Tunica-Biphasic ? Fourth Toe ? 67 ? 0.48 [...] 156 65 - 199 [place] mg/dL [facility] LABORATORY Comment: Supplemental ranges: <140 mg/dL before meals <180 mg/dL all other times of the day Specimen Anatomical Collection Method Collection Time Receive d Time (Source) Location / / Volume Laterality Blood specimen 08/13/2017 7:33 AM 018 7:33 (specimen) EST AM EST Yonathan Smith MD POINT OF CARE TEST ORDERABLE S Performing Organization Address City/State/[place] [address] (ABNORMAL) Differential, Automated (08/13/2017 5:33 AM EST) [facility] Method Time Signature Neutrophils % 77.8 % [facility] LABORATORY Neutr Abs (ANC) 7.83 (H) 1.70 - [facility] 6.10 [facility] x10(3)/[facility] LABORATORY Lymphocytes % 8.4 % [facility] LABORATORY Lymphocytes Abs 0.8 (L) 0.9 - 3.2 [facility] x10(3)/[facility] LABORATORY Monocytes % 8.3 % [facility] LABORATORY Monocyte Abs 0.8 0.3 - 0.9 [facility] x10(3)/[facility] LABORATORY Eosinophils % 4.6 % [facility] LABORATORY Eosinophils Abs 0.5 (H) 0.0 - 0.4 [facility] x10(3)/[facility] LABORATORY Basophils % 0.5 % [facility] LABORATORY Basophils Abs 0.0 0.0 - 0.1 [facility] x10(3)/[facility] LABORATORY Immature Gran % 0.40 % [...] 0.04 0.00 - 0.04 x10(3)/mcL [facility] LABORATORY Specimen Anatomical Collection Method Collection Time Receive d Time (Source) Location / / Volume Laterality Blood specimen 08/13/2017 5:33 AM 01/19/2 018 6:04 (specimen) EST AM EST Resulting Agency Comment Spec In Lab Yonathan Smith MD HEMATOLOGY ORDERABLES Performing Organization Address City/State/ZIP Code Phon e Number [address] (ABNORMAL) Hemogram (08/13/2017 5:33 AM EST) Analysis Performed At Patho logist Time Signature WBC 10.1 (H) 4.0 - 9.5 [facility] x[facility](3)/[facility] LABORATORY RBC 3.21 (L) 4.58 - [place] [facility] 5.54 [facility] x10(6)/[facility] LABORATORY Hemoglobin 9.2 (L) 13.7 - [facility] 16.5 gm/dL [facility] LABORATORY Hematocrit 29.6 (L) 40.5 - [facility] 48.5 % [facility] LABORATORY MCV 92.2 82.9 - [facility] 93.1 [facility] LABORATORY MCH 28.7 27.5 - [place] 32.1 pg [facility] LABORATORY MCHC 31.1 (L) 32.0 - [place] 35.7 gm/dL [facility] LABORATORY Platelets 263 145 - 357 [facility] x10(3)/[facility] LABORATORY RDWSD 54.8 (H) 36.0 - [place] 45.0 [facility] LABORATORY RDWCV 16.4 (H) 11.4 - [facility]AN 13.8 % [facility] LABORATORY MPV 9.2 7.6 - 12.9 [facility] LABORATORY nRBC % Auto 0.0 % [facility] LABORATORY nRBC Abs Auto 0.000 0.000 - [place] 0.000 [facility] x10(3)/[facility] LABORATORY Specimen Anatomical Collection Method Collection Time Receive d Time (Source) Location / / Volume Laterality Blood specimen 08/13/2017 5:33 AM 018 6:04 (specimen) EST AM EST Resulting Agency Comment Spec In Lab Yonathan Smith MD HEMATOLOGY ORDERABLES Performing Organization Address City/State/[place] [address] (ABNORMAL) Prothrombin Time (08/13/2017 [...] Organization Address City/State/[place] [address] (ABNORMAL) Basic Metabolic Panel (non-fasting) (08/13/2017 5:33 AM EST) athologist Signature Glucose Lvl 126 65 - 199 [facility] mg/dL [facility] LABORATORY Comment: Diabetes: >=200 mg/dL plus symp toms BUN 18 10 - 20 mg/dL [facility] LABORATORY Creatinine 1.16 0.80 - 1.50 mg/dL [facility] [...] or in patients with acute kidney failure. [email or web address] [email or web address] Specimen Anatomical Collection Method Collection Time Receive d Time (Source) Location / / Volume Laterality Blood specimen 08/13/2017 5:33 AM 018 6:04 (specimen) EST AM EST Resulting Agency Comment Spec In Lab Yonathan Smith MD CHEMISTRY ORDERABLES Performing Organization Address City/[facility]/ZIP Code Phon e Number [address] POCT Glucose (08/13/2017 4:29 AM EST) athologist Signature POC Glucose 111 65 - 199 [facility]dL [facility] Comment: Supplemental ranges: <140 mg/dL before meals <180 mg/dL all other times of the day Specimen Anatomical Collection Method Collection Time Receive d Time (Source) Location / / Volume Laterality Blood specimen 08/13/2017 4:29 AM 018 4:29 (specimen) EST AM EST Yonathan Smith MD POINT OF CARE TEST ORDERABLE S Performing Organization Address City/State/ZIP Code Phon e Number [address] POCT Glucose (08/12/2017 11:28 PM EST) athologist Signature POC Glucose 164 65 - 199 [facility] Comment: Supplemental ranges: <140 mg/dL before meals <180 mg/dL all other times of the day Specimen Anatomical Collection Method Collection Time Receive d Time (Source) Location / / Volume Laterality Blood specimen 08/12/2017 11:28 8 (specimen) PM EST 11:28 PM EST Yonathan Smith MD POINT OF CARE TEST ORDERABLE S Performing Organization Address City/State/ZIP Code Phon e Number [address] (ABNORMAL) POCT Glucose (08/12/2017 7:40 PM EST) athologist Signature POC Glucose 209 (H) 65 - 199 [place] mg/dL [facility] Comment: Supplemental ranges: <140 mg/dL before meals <180 mg/dL all other times of the day Specimen Anatomical Collection Method Collection Time Receive d Time (Source) Location / / Volume Laterality Blood specimen 08/12/2017 7:40 PM 018 7:40 (specimen) EST PM EST Yonathan Smith MD POINT OF CARE TEST ORDERABLE S Performing Organization Address City/[facility]/[place] [address] POCT Glucose (08/12/2017 4:24 PM EST) athologist Signature POC Glucose 161 65 - 199 [place] mg/dL [facility] Comment: Supplemental ranges: <140 mg/dL before meals <180 mg/dL all other times of the day Specimen Anatomical Collection Method Collection Time Receive d Time (Source) Location / / Volume Laterality Blood specimen 08/12/2017 4:24 PM 018 4:24 (specimen) EST PM EST Yonathan Smith MD POINT OF CARE TEST ORDERABLE S Performing Organization Address City/[facility]/[place] [address] POCT Glucose (08/12/2017 12:00 PM EST) athologist Signature POC Glucose 167 65 - 199 [place] mg/dL [facility] Comment: Supplemental ranges: <140 mg/dL before meals <180 mg/dL all other times of the day Specimen Anatomical Collection Method Collection Time Receive d Time (Source) Location / / Volume Laterality Blood specimen 08/12/2017 12:00 8 (specimen) PM EST 12:00 PM EST Yonathan Smith MD POINT OF CARE TEST ORDERABLE S Performing Organization Address City/State/ZIP Code Phon e Number [address] POCT Glucose (08/12/2017 7:25 AM EST) P athologist Signature POC Glucose 152 65 - 199 [facility]dL [facility] Comment: Supplemental ranges: <140 mg/dL before meals <180 mg/dL all other times of the day Specimen Anatomical Collection Method Collection Time Receive d Time (Source) Location / / Volume Laterality Blood specimen 08/12/2017 7:25 AM 018 7:25 (specimen) EST AM EST Yonathan Smith MD POINT OF CARE TEST ORDERABLE S Performing Organization Address City/[facility]/ZIP Code Phon e Number [address] (ABNORMAL) Differential, Automated (08/12/2017 6:29 AM EST) Patholo gist Method Time Signature Neutrophils % 78.7 % [facility] Neutr Abs (ANC) 7.94 (H) 1.70 - [facility] 6.10 [facility] x10(3)/[facility] LABORATORY Lymphocytes % 8.8 % [facility] Lymphocytes Abs 0.9 0.9 - 3.2 [facility] x10(3)/[facility] LABORATORY Monocytes % 7.8 % [facility] Monocyte Abs 0.8 0.3 - 0.9 [facility] x10(3)/[facility] LABORATORY Eosinophils % 3.9 % [facility] Eosinophils Abs 0.4 0.0 - 0.4 [facility] x10(3)/[facility] LABORATORY Basophils % 0.3 % [facility] Basophils Abs 0.0 0.0 - 0.1 [facility] x10(3)/[facility] LABORATORY Immature Gran % 0.50 % [...] Abs 0.05 (H) 0.00 - 0.04 x10(3)/[facility] LABORATORY Specimen Anatomical Collection Method Collection Time Receive d Time (Source) Location / / Volume Laterality Blood specimen 08/12/2017 6:29 AM 018 6:38 (specimen) EST AM EST Resulting Agency Comment Spec In Lab Yonathan Smith MD HEMATOLOGY ORDERABLES Performing Organization Address City/State/[place] [address] (ABNORMAL) Hemogram (08/12/2017 6:29 AM EST) Analysis Performed At Patho logist Time Signature WBC 10.1 (H) 4.0 - 9.5 [facility] x10(3)/[facility] LABORATORY RBC 3.02 (L) 4.58 - [facility] 5.54 [facility] x10(6)/[facility] LABORATORY Hemoglobin 8.7 (L) 13.7 - [facility] 16.5 gm/dL [facility] Hematocrit 28.1 (L) 40.5 - [facility] 48.5 % [facility] MCV 93.0 82.9 - [facility] 93.1 [facility] LABORATORY MCH 28.8 27.5 - [facility] 32.1 pg [facility] MCHC 31.0 (L) 32.0 - [facility] 35.7 gm/dL [facility] Platelets 223 145 - 357 [facility] x10(3)/[facility] LABORATORY RDWSD 56.1 (H) 36.0 - [facility] 45.0 [facility] LABORATORY RDWCV 16.4 (H) 11.4 - [facility] 13.8 % [facility] MPV 9.0 7.6 - 12.9 [facility] LABORATORY nRBC % Auto 0.0 % [facility] nRBC Abs Auto 0.000 0.000 - [facility] 0.000 [facility] x10(3)/[facility] LABORATORY Specimen Anatomical Collection Method Collection Time Receive d Time (Source) Location / / Volume Laterality Blood specimen 08/12/2017 6:29 AM 018 6:38 (specimen) EST AM EST Resulting Agency Comment Spec In Lab Yonathan Smith MD HEMATOLOGY ORDERABLES Performing Organization Address City/[facility]/[place] [address] (ABNORMAL) Prothrombin Time (08/12/2017 [...] HEMATOLOGY ORDERABLES Performing Organization Address City/[facility]/ZIP [facility] [place] [address] (ABNORMAL) Basic Metabolic Panel (non-fasting) (08/12/2017 6:29 AM EST) athologist Signature Glucose Lvl 151 65 - 199 [facility] mg/dL [facility] Comment: Diabetes: >=200 mg/dL plus symp toms BUN 18 10 - 20 mg/dL [facility] Creatinine 1.11 0.80 - 1.50 mg/dL [facility] [...] or in patients with acute kidney failure. [email or web address] [email or web address] Specimen Anatomical Collection Method Collection Time Receive d Time (Source) Location / / Volume Laterality Blood specimen 08/12/2017 6:29 AM 018 6:38 (specimen) EST AM EST Resulting Agency Comment Spec In Lab Yonathan Smith MD CHEMISTRY ORDERABLES Performing Organization Address City/[facility]/ZIP Code Phon e Number [address] POCT Glucose (08/12/2017 4:08 AM EST) P athologist Signature POC Glucose 181 65 - 199 [facility] mg/dL [facility] Comment: Supplemental ranges: <140 mg/dL before meals <180 mg/dL all other times of the day Specimen Anatomical Collection Method Collection Time Receive d Time (Source) Location / / Volume Laterality Blood specimen 08/12/2017 4:08 AM 018 4:08 (specimen) EST AM EST Yonathan Smith MD POINT OF CARE TEST ORDERABLE S Performing Organization Address City/[facility]/[place] [address] (ABNORMAL) POCT Glucose (08/12/2017 12:17 AM EST) athologist Signature POC Glucose 221 (H) 65 - 199 [facility]dL [facility] Comment: Supplemental ranges: <140 mg/dL before meals <180 mg/dL all other times of the day Specimen Anatomical Collection Method Collection Time Receive d Time (Source) Location / / Volume Laterality Blood specimen 08/12/2017 12:17 8 (specimen) AM EST 12:17 AM EST Yonathan Smith MD POINT OF CARE TEST ORDERABLE S Performing Organization Address City/State/[place] [address] (ABNORMAL) POCT Glucose (08/11/2017 8:52 PM EST) athologist Signature POC Glucose 221 (H) 65 - 199 [facility] mg/dL [facility] Comment: Supplemental ranges: <140 mg/dL before meals <180 mg/dL all other times of the day Specimen Anatomical Collection Method Collection Time Receive d Time (Source) Location / / Volume Laterality Blood specimen 08/11/2017 8:52 PM 018 8:52 (specimen) EST PM EST Yonathan Smith MD POINT OF CARE TEST ORDERABLE S Performing Organization Address City/State/[place] [address] POCT Glucose (08/11/2017 5:59 PM EST) athologist Signature POC Glucose 169 65 - 199 [facility]dL [facility] Comment: Supplemental ranges: <140 mg/dL before meals <180 mg/dL all other times of the day Specimen Anatomical Collection Method Collection Time Receive d Time (Source) Location / / Volume Laterality Blood specimen 08/11/2017 5:59 PM 018 5:59 (specimen) EST PM EST Yonathan Smiht MD POINT OF CARE TEST ORDERABLE S Performing Organization Address City/State/[place] [address] (ABNORMAL) POCT Glucose (08/11/2017 4:08 PM EST) athologist Signature POC Glucose 240 (H) 65 - 199 [place] mg/dL [facility] Comment: Supplemental ranges: <140 mg/dL before meals <180 mg/dL all other times of the day Specimen Anatomical Collection Method Collection Time Receive d Time (Source) Location / / Volume Laterality Blood specimen 08/11/2017 4:08 PM 018 4:08 (specimen) EST PM EST Yonathan Smith MD POINT OF CARE TEST ORDERABLE S Performing Organization Address City/State/[place] [address] POCT Glucose (08/11/2017 12:04 PM EST) athologist Signature POC Glucose 182 65 - 199 [facility] mg/dL [facility] Comment: Supplemental ranges: <140 mg/dL before meals <180 mg/dL all other times of the day Specimen Anatomical Collection Method Collection Time Receive d Time (Source) Location / / Volume Laterality Blood specimen 08/11/2017 12:04 8 (specimen) PM EST 12:04 PM EST Yonathan Smith MD POINT OF CARE TEST ORDERABLE S Performing Organization Address City/State/[place] [address] POCT Glucose (08/11/2017 7:31 AM EST) athologist Signature POC Glucose 156 65 - 199 [place] mg/dL [facility] Comment: Supplemental ranges: <140 mg/dL before meals <180 mg/dL all other times of the day Specimen Anatomical Collection Method Collection Time Receive d Time (Source) Location / / Volume Laterality Blood specimen 08/11/2017 7:31 AM 018 7:31 (specimen) EST AM EST Yonathan Smith MD POINT OF CARE TEST ORDERABLE S Performing Organization Address City/State/[place] [address] (ABNORMAL) Differential, Automated (08/11/2017 6:16 AM EST) Patholo gist Method Time Signature Neutrophils % 83.7 % [facility] Neutr Abs (ANC) 10.76 (H) 1.70 - [facility] 6.10 [facility] x10(3)/[facility] L LABORATORY Lymphocytes % 6.0 % [facility] Lymphocytes Abs 0.8 (L) 0.9 - 3.2 [facility] x10(3)/[facility] LABORATORY Monocytes % 7.5 % [facility] Monocyte Abs 1.0 (H) 0.3 - 0.9 [facility] x10(3)/[facility] LABORATORY Eosinophils % 2.0 % [facility] Eosinophils Abs 0.3 0.0 - 0.4 [facility] x10(3)/[facility] LABORATORY Basophils % 0.3 % [facility] Basophils Abs 0.0 0.0 - 0.1 [place] 842460(3)/[facility] LABORATORY Immature Gran % 0.50 % [...] Organization Address City/State/[place] [address] (ABNORMAL) Hemogram (08/11/2017 6:16 AM EST) Analysis Performed At [facility] Time Signature WBC 12.9 (H) 4.0 - 9.5 [facility] x10(3)/[facility] LABORATORY RBC 3.28 (L) 4.58 - [facility] 5.54 [facility] x10(6)/[facility] LABORATORY Hemoglobin 9.5 (L) 13.7 - [facility] 16.5 gm/dL [facility] Hematocrit 29.8 (L) 40.5 - [facility] 48.5 % [facility] MCV 90.9 82.9 - [facility] 93.1 [facility] LABORATORY MCH 29.0 27.5 - [facility] 32.1 pg [facility] MCHC 31.9 (L) 32.0 - [facility] 35.7 gm/dL [facility] Platelets 236 145 - 357 [facility] x10(3)/[facility] LABORATORY RDWSD 53.5 (H) 36.0 - [facility] 45.0 [facility] LABORATORY RDWCV 16.3 (H) 11.4 - [facility] 13.8 % [facility] MPV 8.8 7.6 - 12.9 [facility] LABORATORY nRBC % Auto 0.0 % [facility] nRBC Abs Auto 0.000 0.000 - [facility] 0.000 [facility] x10(3)/[facility] LABORATORY Specimen Anatomical Collection Method Collection Time Receive d Time (Source) Location / / Volume Laterality Blood specimen 08/11/2017 6:16 AM 018 6:24 (specimen) EST AM EST Resulting Agency Comment Spec In Lab Yonathan Smith MD HEMATOLOGY ORDERABLES Performing Organization Address City/State/[place] [address] (ABNORMAL) Prothrombin Time (08/11/2017 [...] Organization Address City/State/[place] [address] Basic Metabolic Panel (non-fasting) (08/11/2017 6:16 AM EST) athologist Signature Glucose Lvl 139 65 - 199 [facility] mg/dL [facility] Comment: Diabetes: >=200 mg/dL plus symp toms BUN 12 10 - 20 mg/dL [facility] Creatinine 0.91 0.80 - 1.50 mg/dL [facility] [...] or in patients with acute kidney failure. [email or web address]/nkdep [email or web address] – MIAMInkf Specimen Anatomical Collection Method Collection Time Receive d Time (Source) Location / / Volume Laterality Blood specimen 08/11/2017 6:16 AM 018 6:24 (specimen) EST AM EST Resulting Agency Comment Spec In Lab Yonathan Smith MD CHEMISTRY ORDERABLES Performing Organization Address City/[facility]/ZIP Code Phon e Number [address] POCT Glucose (08/11/2017 4:07 AM EST) athologist Signature POC Glucose 162 65 - 199 [place] mg/dL [facility] Comment: Supplemental ranges: <140 mg/dL before meals <180 mg/dL all other times of the day Specimen Anatomical Collection Method Collection Time Receive d Time (Source) Location / / Volume Laterality Blood specimen 08/11/2017 4:07 AM 018 4:07 (specimen) EST AM EST Yonathan Smith MD POINT OF CARE TEST ORDERABLE S Performing Organization Address City/[facility]/ZIP Code Phon e Number [address] POCT Glucose (08/10/2017 11:59 PM EST) athologist Signature POC Glucose 166 65 - 199 [place] mg/dL [facility] Comment: Supplemental ranges: <140 mg/dL before meals <180 mg/dL all other times of the day Specimen Anatomical Collection Method Collection Time Receive d Time (Source) Location / / Volume Laterality Blood specimen 08/10/2017 11:59 8 (specimen) PM EST 11:59 PM EST Yonathan Smith MD POINT OF CARE TEST ORDERABLE S Performing Organization Address City/[facility]/ZIP Code Phon e Number [address] POCT Glucose (08/10/2017 8:12 PM EST) athologist Signature POC Glucose 156 65 - 199 [place] mg/dL [facility] Comment: Supplemental ranges: <140 mg/dL before meals <180 mg/dL all other times of the day Specimen Anatomical Collection Method Collection Time Receive d Time (Source) Location / / Volume Laterality Blood specimen 08/10/2017 8:12 PM 018 8:12 (specimen) EST PM EST Yonathan Smith MD POINT OF CARE TEST ORDERABLE S Performing Organization Address City/[facility]/[place] [address] (ABNORMAL) POCT Glucose (08/10/2017 4:42 PM EST) P athologist Signature POC Glucose 211 (H) 65 - 199 [facility] mg/dL [facility] Comment: Supplemental ranges: <140 mg/dL before meals <180 mg/dL all other times of the day Specimen Anatomical Collection Method Collection Time Receive d Time (Source) Location / / Volume Laterality Blood specimen 08/10/2017 4:42 PM 018 4:42 (specimen) EST PM EST Yonathan Smith MD POINT OF CARE TEST ORDERABLE S Performing Organization Address City/[facility]/[place] [address] (ABNORMAL) Differential, Automated (08/10/2017 2:30 PM EST) Patholo gist Method Time Signature Neutrophils % 87.6 % [facility] Neutr Abs (ANC) 9.90 (H) 1.70 - [facility] 6.10 [facility] x10(3)/[facility] L LABORATORY Lymphocytes % 4.3 % [facility] Lymphocytes Abs 0.5 (L) 0.9 - 3.2 [facility] x10(3)/[facility] LABORATORY Monocytes % 6.0 % [facility] Monocyte Abs 0.7 0.3 - 0.9 [facility] x10(3)/[facility] LABORATORY Eosinophils % 1.1 % [facility] Eosinophils Abs 0.1 0.0 - 0.4 [facility] x10(3)/[facility] LABORATORY Basophils % 0.4 % [facility] Basophils Abs 0.0 0.0 - 0.1 [facility] x10(3)/[facility] LABORATORY Immature Gran [...] Abs 0.07 (H) 0.00 - 0.04 x10(3)/[facility] LABORATORY Specimen Anatomical Collection Method Collection Time Receive d Time (Source) Location / / Volume Laterality Blood specimen 08/10/2017 2:30 PM 018 2:48 (specimen) EST PM EST Resulting Agency Comment Spec In Lab Yonathan Smith MD HEMATOLOGY ORDERABLES Performing Organization Address City/State/[place] [address] (ABNORMAL) Hemogram (08/10/2017 2:30 PM EST) Analysis Performed At Patho logist Time Signature WBC 11.3 (H) 4.0 - 9.5 [facility] x10(3)/[facility] LABORATORY RBC 3.13 (L) 4.58 - [facility] 5.54 [facility] x10(6)/[facility] LABORATORY Hemoglobin 8.9 (L) 13.7 - [facility] 16.5 gm/dL [facility] Hematocrit 28.4 (L) 40.5 - [facility] 48.5 % [facility] MCV 90.7 82.9 - [facility] 93.1 [facility] LABORATORY MCH 28.4 27.5 - [facility] 32.1 pg [facility] MCHC 31.3 (L) 32.0 - [facility] 35.7 gm/dL [facility] Platelets 213 145 - 357 [facility] x10(3)/[facility] RDWSD 53.7 (H) 36.0 - [facility] 45.0 [facility] RDWCV 16.4 (H) 11.4 - [facility] 13.8 % [facility] MPV 8.9 7.6 - 12.9 [facility] LABORATORY nRBC % Auto 0.0 % [facility] nRBC Abs Auto 0.000 0.000 - [facility] 0.000 [facility] x10(3)/[facility] LABORATORY Specimen Anatomical Collection Method Collection Time Receive d Time (Source) Location / / Volume Laterality Blood specimen 08/10/2017 2:30 PM 018 2:48 (specimen) EST PM EST Resulting Agency Comment Spec In Lab Yonathan Smith MD HEMATOLOGY ORDERABLES Performing Organization Address City/State/[place] [address] (ABNORMAL) POCT Glucose (08/10/2017 1:50 PM EST) athologist Signature POC Glucose 243 (H) 65 - 199 [facility] mg/dL [facility] Comment: Supplemental ranges: <140 mg/dL before meals <180 mg/dL all other times of the day Specimen Anatomical Collection Method Collection Time Receive d Time (Source) Location / / Volume Laterality Blood specimen 08/10/2017 1:50 PM 018 1:50 (specimen) EST PM EST Yonathan Smith MD POINT OF CARE TEST ORDERABLE S Performing Organization Address City/State/[place] [address] POCT Glucose (08/10/2017 11:21 AM EST) athologist Signature POC Glucose 156 65 - 199 [facility] mg/dL [facility] Comment: Supplemental ranges: <140 mg/dL before meals <180 mg/dL all other times of the day Specimen Anatomical Collection Method Collection Time Receive d Time (Source) Location / / Volume Laterality Blood specimen 08/10/2017 11:21 8 (specimen) AM EST 11:21 AM EST Yonathan Smith MD POINT OF CARE TEST ORDERABLE S Performing Organization Address City/State/[place] [address] (ABNORMAL) Differential, Automated (08/10/2017 10:28 AM EST) Patholo gist Method Time Signature Neutrophils % 85.3 % [facility] Neutr Abs (ANC) 9.43 (H) 1.70 - [facility] 6.10 [facility] x10(3)/[facility] L LABORATORY Lymphocytes % 5.5 % [facility] Lymphocytes Abs 0.6 (L) 0.9 - 3.2 [facility] x10(3)/[facility] LABORATORY Monocytes % 5.9 % [facility] Monocyte Abs 0.6 0.3 - 0.9 [facility] x10(3)/[facility] LABORATORY Eosinophils % 2.1 % [facility] Eosinophils Abs 0.2 0.0 - 0.4 [facility] x10(3)/[facility] LABORATORY Basophils % 0.4 % [facility] Basophils Abs 0.0 0.0 - 0.1 [facility] x10(3)/[facility] LABORATORY Immature Gran % 0.80 % [...] Abs 0.09 (H) 0.00 - 0.04 x10(3)/[facility] LABORATORY Specimen Anatomical Collection Method Collection Time Receive d Time (Source) Location / / Volume Laterality Blood specimen 08/10/2017 10:28 8 (specimen) AM EST 10:35 AM EST Resulting Agency Comment Spec In Lab Yonathan Smith MD HEMATOLOGY ORDERABLES Performing Organization Address City/State/[place] [address] (ABNORMAL) Hemogram (08/10/2017 10:28 AM EST) Analysis [facility] Time Signature WBC 11.0 (H) 4.0 - 9.5 [facility] x10(3)/[facility] LABORATORY RBC 3.02 (L) 4.58 - BARBARA ZHAORYAN 5.54 [facility] x10(6)/[facility] LABORATORY Hemoglobin 8.8 (L) 13.7 - BARBARA ZHAORYAN 16.5 gm/dL [facility] LABORATORY Hematocrit 28.1 (L) 40.5 - [facility] 48.5 % [facility] LABORATORY MCV 93.0 82.9 - [facility] 93.1 [facility] LABORATORY MCH 29.1 27.5 - BARBARA ZHAORYAN 32.1 pg [facility] LABORATORY MCHC 31.3 (L) 32.0 - BARBARA ZHAORYAN 35.7 gm/dL [facility] LABORATORY Platelets 207 145 - 357 [facility] x10(3)/[facility] LABORATORY RDWSD 55.3 (H) 36.0 - BARBARA ZHAORYAN 45.0 [facility] LABORATORY RDWCV 16.4 (H) 11.4 - [facility] 13.8 % [facility] LABORATORY MPV 9.0 7.6 - 12.9 [facility] LABORATORY nRBC % Auto 0.0 % [facility] LABORATORY nRBC Abs Auto 0.000 0.000 - [facility] 0.000 [facility] x10(3)/[facility] LABORATORY Specimen Anatomical Collection Method Collection Time Receive d Time (Source) Location / / Volume Laterality Blood specimen 08/10/2017 10:28 8 (specimen) AM EST 10:35 AM EST Resulting Agency Comment Spec In Lab Yonathan Smith MD HEMATOLOGY ORDERABLES Performing Organization Address City/State/[place] [address] VS Angiogram/intervention (vascular) (08/10/2017 [...] 2.5x80 5. Completion RLE angiogram 6. L CULINARY WORKER angiogram 7. 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 L CULINARY WORKER access in the distal L CULINARY WORKER. - Closure device: Mynx Technical Procedure: [...] for a 45cm 5F Destination. V18 and Medina a nd QuickCross catheters were used to [...] bifurcation. Access appeared in the distal R CULINARY WORKER. Closure and sheath removal was performed [...] 2.5x80 5. Completion RLE angiogram 6. L CULINARY WORKER angiogram 7. 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 L CULINARY WORKER access in the distal L CULINARY WORKER. - Closure device: Mynx Technical Procedure: [...] for a 45cm 5F Destination. V18 and Medina a nd QuickCross catheters were used to [...] bifurcation. Access appeared in the distal R CULINARY WORKER. Closure and sheath removal was performed [...] (ABNORMAL) Differential, Automated (08/10/2017 5:50 AM EST) [facility] Method Time Signature Neutrophils % 80.1 % [facility] LABORATORY Neutr Abs (ANC) 9.01 (H) 1.70 - [facility] 6.10 [facility] x10(3)/[facility] L LABORATORY Lymphocytes % 8.8 % [facility] LABORATORY Lymphocytes Abs 1.0 0.9 - 3.2 [facility] x10(3)/[facility] LABORATORY Monocytes % 8.3 % [facility] LABORATORY Monocyte Abs 0.9 0.3 - 0.9 [facility] x10(3)/[facility] LABORATORY Eosinophils % 2.0 % [facility] LABORATORY Eosinophils Abs 0.2 0.0 - 0.4 [facility] x10(3)/[facility] LABORATORY Basophils % 0.4 % [facility] LABORATORY Basophils Abs 0.0 0.0 - 0.1 [facility] x10(3)/[facility] LABORATORY Immature Gran % 0.40 % [...] Abs 0.05 (H) 0.00 - 0.04 x10(3)/[facility] LABORATORY Specimen Anatomical Collection Method Collection Time Receive d Time (Source) Location / / Volume Laterality Blood specimen 08/10/2017 5:50 AM 018 5:59 (specimen) EST AM EST Resulting Agency Comment Spec In Lab Yonathan Smith MD HEMATOLOGY ORDERABLES Performing Organization Address City/State/[place] [address] (ABNORMAL) Hemogram (08/10/2017 5:50 AM EST) Analysis Performed At Patho logist Time Signature WBC 11.3 (H) 4.0 - 9.5 [facility] x10(3)/[facility] LABORATORY RBC 3.15 (L) 4.58 - [facility] 5.54 [facility] x10(6)/[facility] LABORATORY Hemoglobin 8.9 (L) 13.7 - [facility] 16.5 gm/dL [facility] LABORATORY Hematocrit 29.0 (L) 40.5 - [facility] 48.5 % [facility] LABORATORY MCV 92.1 82.9 - [facility] 93.1 fL [facility] LABORATORY MCH 28.3 27.5 - [facility] 32.1 pg [facility] LABORATORY MCHC 30.7 (L) 32.0 - [facility] 35.7 gm/dL [facility] LABORATORY Platelets 231 145 - 357 [facility] x10(3)/[facility] LABORATORY RDWSD 53.9 (H) 36.0 - [facility] 45.0 [facility] LABORATORY RDWCV 16.2 (H) 11.4 - [facility] 13.8 % [facility] LABORATORY MPV 8.7 7.6 - 12.9 [facility] LABORATORY nRBC % Auto 0.0 % [facility] LABORATORY nRBC Abs Auto 0.000 0.000 - [facility] 0.000 [facility] x10(3)/[facility] LABORATORY Specimen Anatomical Collection Method Collection Time Receive d Time (Source) Location / / Volume Laterality Blood specimen 08/10/2017 5:50 AM 018 5:59 (specimen) EST AM EST Resulting Agency Comment Spec In Lab Yonathan Smith MD HEMATOLOGY ORDERABLES Performing Organization Address City/State/[place] [address] (ABNORMAL) Basic Metabolic Panel (non-fasting) (08/10/2017 5:50 AM EST) athologist Signature Glucose Lvl 135 65 - 199 [facility] mg/dL [facility] LABORATORY Comment: Diabetes: >=200 mg/dL plus symp toms BUN 17 10 - 20 mg/dL [facility] LABORATORY Creatinine 1.05 0.80 - 1.50 mg/dL [facility] [...] LABORATORY Estimated GFR >60 >=60 BARBARA DAVIS [facility] LABORATORY Comment: The reported eGFR should be multiplied b y 1.2 for patients. The MDRD is not an appropriate measure o f renal function for patients with body mass extremes or in patients with acute kidney failure. http://[employer]/DHnkdep http://[employer]/DHMCnkf Specimen Anatomical Collection Method Collection Time Receive d Time (Source) Location / / Volume Laterality Blood specimen 08/10/2017 5:50 AM 018 5:59 (specimen) EST AM EST Resulting Agency Comment Spec In Lab Yonathan Smith MD CHEMISTRY ORDERABLES Performing Organization Address City/[facility] [place] [address] (ABNORMAL) Prothrombin Time (08/10/2017 [...] HEMATOLOGY ORDERABLES Performing Organization Address City/[facility] [place] [address] (ABNORMAL) POCT Glucose (08/10/2017 4:01 AM EST) P athologist Signature POC Glucose 206 (H) 65 - 199 [facility] mg/dL [facility] LABORATORY Comment: Supplemental ranges: <140 mg/dL before meals <180 mg/dL all other times of the day Specimen Anatomical Collection Method Collection Time Receive d Time (Source) Location / / Volume Laterality Blood specimen 08/10/2017 4:01 AM 018 4:01 (specimen) EST AM EST Yonathan Smith MD POINT OF CARE TEST ORDERABLE S Performing Organization Address City/State/[place] [address] POCT Glucose (08/10/2017 2:01 AM EST) athologist Signature POC Glucose 188 65 - 199 BARBARA ZHAORYAN mg/dL [facility] LABORATORY Comment: Supplemental ranges: <140 mg/dL before meals <180 mg/dL all other times of the day Specimen Anatomical Collection Method Collection Time Receive d Time (Source) Location / / Volume Laterality Blood specimen 08/10/2017 2:01 AM 018 2:01 (specimen) EST AM EST Yonathan Smith MD POINT OF CARE TEST ORDERABLE S Performing Organization Address City/State/[place] [address] (ABNORMAL) POCT Glucose (08/09/2017 11:42 PM EST) athologist Signature POC Glucose 283 (H) 65 - 199 BARBARA HZAORYAN mg/dL [facility] LABORATORY Comment: Supplemental ranges: <140 mg/dL before meals <180 mg/dL all other times of the day Specimen Anatomical Collection Method Collection Time Receive d Time (Source) Location / / Volume Laterality Blood specimen 08/09/2017 11:42 8 (specimen) PM EST 11:42 PM EST Yonathan Smith MD POINT OF CARE TEST ORDERABLE S Performing Organization Address City/State/ZIP Code Phon e Number [address] POCT Glucose (08/09/2017 8:55 PM EST) athologist Signature POC Glucose 182 65 - 199 BARBARA ZHAORYAN mg/dL [facility] LABORATORY Comment: Supplemental ranges: <140 mg/dL before meals <180 mg/dL all other times of the day Specimen Anatomical Collection Method Collection Time Receive d Time (Source) Location / / Volume Laterality Blood specimen 08/09/2017 8:55 PM 018 8:55 (specimen) EST PM EST Yonathan Smith MD POINT OF CARE TEST ORDERABLE S Performing Organization Address City/[facility]/[place] [address] (ABNORMAL) APTT (08/09/2017 6:42 [...] HEMATOLOGY ORDERABLES Performing Organization Address City/[facility]/[place] [address] POCT Glucose (08/09/2017 4:41 PM EST) athologist Signature POC Glucose 195 65 - 199 [facility] mg/dL [facility] LABORATORY Comment: Supplemental ranges: <140 mg/dL before meals <180 mg/dL all other times of the day Specimen Anatomical Collection Method Collection Time Receive d Time (Source) Location / / Volume Laterality Blood specimen 08/09/2017 4:41 PM 018 4:41 (specimen) EST PM EST Yonathan Smith MD POINT OF CARE TEST ORDERABLE S Performing Organization Address City/[facility]/ZIP Code Phon e Number [address] POCT Glucose (08/09/2017 12:29 PM EST) athologist Signature POC Glucose 140 65 - 199 [facility] mg/dL [facility] LABORATORY Comment: Supplemental ranges: <140 mg/dL before meals <180 mg/dL all other times of the day Specimen Anatomical Collection Method Collection Time Receive d Time (Source) Location / / Volume Laterality Blood specimen 08/09/2017 12:29 8 (specimen) PM EST 12:29 PM EST Yonathan Smith MD POINT OF CARE TEST ORDERABLE S Performing Organization Address City/[facility]/ZIP Code Phon e Number [address] POCT Glucose (08/09/2017 9:59 AM EST) P athologist Signature POC Glucose 135 65 - 199 [facility] mg/dL [facility] LABORATORY Comment: Supplemental ranges: <140 mg/dL before meals <180 mg/dL all other times of the day Specimen Anatomical Collection Method Collection Time Receive d Time (Source) Location / / Volume Laterality Blood specimen 08/09/2017 9:59 AM 018 9:59 (specimen) EST AM EST Yonathan Smith MD POINT OF CARE TEST ORDERABLE S Performing Organization Address City/[facility]/[place] [address] Specimen to Pathology (08/09/2017 [...] [facility]/[place] [address] Surgical Pathology Report (08/09/2017 8:40 AM EST) Component Value Ref Test Analysis Performed At Patholo gist Range Method Time Signature Surgical [id number] ? Location: [facility]; [facility]; A [facility] Pathology TACOMA Report The signing pathologist has (i) examined [...] [facility] Dept. [facility], [place], [place] CLINICAL INFORMATION Specimen Submitted: A - [...] [facility]/[place] [address] Anaerobic Culture (08/09/2017 8:30 AM EST) [facility] Method Time Signature Anaerobic No anaerobic [facility] Culture organisms [facility] LABORATORY Specimen Anatomical Collection Method Collection [...] ORDER ROBSON Performing Organization Address City/[facility]/[place] [address] (ABNORMAL) Abscess/Wound Aspirate Culture (08/09/2017 8:30 AM EST) [facility] Method Time Signature Abscess/Wound Moderate mixed [facility] Aspirate bacterial TACOMA Culture morphotypes [facility] normal LABORATORY cutaneous leroy (A) Gram Stain Rare White Blood Cells BARBARA Few Gram Positive Cocci in pairs TACOMA () [facility] LABORATORY Organism Gram Positive BARBARA Cocci in pairs TACOMA () [facility] LABORATORY Specimen Anatomical Collection Method Collection [...] ORDER ROBSON Performing Organization Address City/[facility]/ZIP Code Phon e Number [address] POCT Glucose (08/09/2017 4:28 AM EST) P athologist Signature POC Glucose 128 65 - 199 [facility] mg/dL [facility] LABORATORY Comment: Supplemental ranges: <140 mg/dL before meals <180 mg/dL all other times of the day Specimen Anatomical Collection Method Collection Time Receive d Time (Source) Location / / Volume Laterality Blood specimen 08/09/2017 4:28 AM 018 4:28 (specimen) EST AM EST Yonathan Smith MD POINT OF CARE TEST ORDERABLE S Performing Organization Address City/State/ZIP Code Phon e Number [address] ABORH Recheck Status (08/09/2017 1:10 AM EST) [facility] Method Time Signature ABORH Type Completed [facility] LABORATORY Specimen Anatomical Collection Method Collection Time Receive d Time (Source) Location / / Volume Laterality Blood specimen 08/09/2017 1:10 AM 018 1:35 (specimen) EST AM EST Resulting Agency Comment Spec In Lab Yonathan Smith MD BLOOD BANK ORDERABLES Performing Organization Address City/[facility]/[place] [address] Antibody screen (08/09/2017 1:10 AM EST) [facility] Method Time Signature Ab Screen Negative [facility] LABORATORY Expires at 08/12/2017 [facility] [id number] on: [facility] LABORATORY Specimen Anatomical Collection Method Collection Time Receive d Time (Source) Location / / Volume Laterality Blood specimen 08/09/2017 1:10 AM 018 1:35 (specimen) EST AM EST Resulting Agency Comment Spec In Lab Yonathan Smith MD BLOOD BANK ORDERABLES Performing Organization Address City/State/[place] [address] ABO/Rh Typing (08/09/2017 1:10 [...] Organization Address City/State/[place] [address] (ABNORMAL) APTT (08/09/2017 1:10 [...] Organization Address City/State/[place] [address] (ABNORMAL) Differential, Automated (08/09/2017 1:10 AM EST) Patholo gist Method Time Signature Neutrophils % 76.2 % [facility] LABORATORY Neutr Abs (ANC) 8.59 (H) 1.70 - [facility] 6.10 [facility] x10(3)/[facility] LABORATORY Lymphocytes % 11.0 % [facility] LABORATORY Lymphocytes Abs 1.2 0.9 - 3.2 [facility] x10(3)/[facility] LABORATORY Monocytes % 8.4 % [facility] LABORATORY Monocyte Abs 1.0 (H) 0.3 - 0.9 [facility] x10(3)/[facility] LABORATORY Eosinophils % 3.5 % [facility] LABORATORY Eosinophils Abs 0.4 0.0 - 0.4 [facility] x10(3)/[facility] LABORATORY Basophils % 0.5 % [facility] LABORATORY Basophils Abs 0.1 0.0 - 0.1 [facility] x10(3)/[facility] LABORATORY Immature Gran % 0.40 % [...] Abs 0.05 (H) 0.00 - 0.04 x10(3)/[facility] LABORATORY Specimen Anatomical Collection Method Collection Time Receive d Time (Source) Location / / Volume Laterality Blood specimen 08/09/2017 1:10 AM 018 1:19 (specimen) EST AM EST Resulting Agency Comment Spec In Lab Yonathan Smith MD HEMATOLOGY ORDERABLES Performing Organization Address City/State/[place] [address] (ABNORMAL) Hemogram (08/09/2017 1:10 AM EST) Analysis Performed At Patho logist Time Signature WBC 11.3 (H) 4.0 - 9.5 [facility] x10(3)/[facility] LABORATORY RBC 3.47 (L) 4.58 - [facility] RYAN 5.54 [facility] x10(6)/[facility] LABORATORY Hemoglobin 10.0 (L) 13.7 - [facility] 16.5 gm/dL [facility] LABORATORY Hematocrit 31.9 (L) 40.5 - [facility] RYAN 48.5 % [facility] LABORATORY MCV 91.9 82.9 - [facility] 93.1 [facility] LABORATORY MCH 28.8 27.5 - [facility] RYAN 32.1 pg [facility] LABORATORY MCHC 31.3 (L) 32.0 - [facility] RYAN 35.7 gm/dL [facility] LABORATORY Platelets 234 145 - 357 [facility] x[facility](3)/[facility] LABORATORY RDWSD 54.0 (H) 36.0 - [facility] RYAN 45.0 [facility] LABORATORY RDWCV 16.2 (H) 11.4 - [facility] RYAN 13.8 % [facility] LABORATORY MPV 8.7 7.6 - 12.9 [facility] LABORATORY nRBC % Auto 0.0 % [facility] LABORATORY nRBC Abs Auto 0.000 0.000 - [facility] 0.000 [facility] x10(3)/[facility] LABORATORY Specimen Anatomical Collection Method Collection Time Receive d Time (Source) Location / / Volume Laterality Blood specimen 08/09/2017 1:10 AM 018 1:19 (specimen) EST AM EST Resulting Agency Comment Spec In Lab Yonathan Smith MD HEMATOLOGY ORDERABLES Performing Organization Address City/State/[place] [address] (ABNORMAL) Prothrombin Time (08/09/2017 1:10 AM EST) athologist Signature PT 16.0 (H) 11.8 - 14.0 [facility] LABORATORY [...] Organization Address City/State/[place] [address] (ABNORMAL) Basic Metabolic Panel (non-fasting) (08/09/2017 1:10 AM EST) athologist Signature Glucose Lvl 108 65 - 199 [facility] mg/dL [facility] LABORATORY Comment: Diabetes: >=200 mg/dL plus symp toms BUN 34 (H) 10 - 20 mg/dL [facility] LABORATORY Creatinine 1.54 (H) 0.80 - 1.50 mg/dL [place] [...] or in patients with acute kidney failure. http://[employer]/DHnkdep http://[employer]/DHnkf Specimen Anatomical Collection Method Collection Time Receive d Time (Source) Location / / Volume Laterality Blood specimen 08/09/2017 1:10 AM 018 1:19 (specimen) EST AM EST Resulting Agency Comment Spec In Lab Yonathan Smith MD CHEMISTRY ORDERABLES Performing Organization Address City/State/[place] [address] POCT Glucose (08/09/2017 12:05 AM EST) P athologist Signature POC Glucose 128 65 - 199 [facility] mg/dL [facility] LABORATORY Comment: Supplemental ranges: <140 mg/dL before meals <180 mg/dL all other times of the day Specimen Anatomical Collection Method Collection Time Receive d Time (Source) Location / / Volume Laterality Blood specimen 08/09/2017 12:05 8 (specimen) AM EST 12:05 AM EST Yonathan Smith MD POINT OF CARE TEST ORDERABLE S Performing Organization Address City/State/[place] [address] (ABNORMAL) POCT Glucose (08/08/2017 7:36 PM EST) athologist Signature POC Glucose 215 (H) 65 - 199 [facility] mg/dL [facility] LABORATORY Comment: Supplemental ranges: <140 mg/dL before meals <180 mg/dL all other times of the day Specimen Anatomical Collection Method Collection Time Receive d Time (Source) Location / / Volume Laterality Blood specimen 08/08/2017 7:36 PM 018 7:36 (specimen) EST PM EST Yonathan Smith MD POINT OF CARE TEST ORDERABLE S Performing Organization Address City/State/[place] [address] (ABNORMAL) POCT Glucose (08/08/2017 6:23 PM EST) athologist Signature POC Glucose 216 (H) 65 - 199 [facility] mg/dL [facility] LABORATORY Comment: Supplemental ranges: <140 mg/dL before meals <180 mg/dL all other times of the day Specimen Anatomical Collection Method Collection Time Receive d Time (Source) Location / / Volume Laterality Blood specimen 08/08/2017 6:23 PM 018 6:23 (specimen) EST PM EST Yonathan Smith MD POINT OF CARE TEST ORDERABLE S Performing Organization Address City/State/[place] [address] (ABNORMAL) APTT (08/08/2017 6:00 [...] Address City/State/ZIP Code Phon e Number [address] POCT Glucose (08/08/2017 4:42 PM EST) athologist Signature POC Glucose 78 65 - 199 [facility] RYAN mg/dL [facility] LABORATORY Comment: Supplemental ranges: <140 mg/dL before meals <180 mg/dL all other times of the day Specimen Anatomical Collection Method Collection Time Receive d Time (Source) Location / / Volume Laterality Blood specimen 08/08/2017 4:42 PM 018 4:42 (specimen) EST PM EST Yonathan Smith MD POINT OF CARE TEST ORDERABLE S Performing Organization Address City/[facility]/[place] [address] (ABNORMAL) POCT Glucose (08/08/2017 4:01 PM EST) athologist Signature POC Glucose 58 (L) 65 - 199 [facility] mg/dL [facility] LABORATORY Comment: Supplemental ranges: <140 mg/dL before meals <180 mg/dL all other times of the day Specimen Anatomical Collection Method Collection Time Receive d Time (Source) Location / / Volume Laterality Blood specimen 08/08/2017 4:01 PM 018 4:01 (specimen) EST PM EST Yonathan Smith MD POINT OF CARE TEST ORDERABLE S Performing Organization Address City/[facility]/[place] [address] POCT Glucose (08/08/2017 11:51 AM EST) athologist Signature POC Glucose 90 65 - 199 [facility] RYAN mg/dL [facility] LABORATORY Comment: Supplemental ranges: <140 mg/dL before meals <180 mg/dL all other times of the day Specimen Anatomical Collection Method Collection Time Receive d Time (Source) Location / / Volume Laterality Blood specimen 08/08/2017 11:51 8 (specimen) AM EST 11:51 AM EST Yonathan Smith MD POINT OF CARE TEST ORDERABLE S Performing Organization Address City/[facility]/ZIP Code Phon [place] [address] (ABNORMAL) APTT (08/08/2017 10:27 [...] HEMATOLOGY ORDERABLES Performing Organization Address City/[facility]/[place] [address] POCT Glucose (08/08/2017 8:02 AM EST) athologist Signature POC Glucose 178 65 - 199 [facility] mg/dL [facility] LABORATORY Comment: Supplemental ranges: <140 mg/dL before meals <180 mg/dL all other times of the day Specimen Anatomical Collection Method Collection Time Receive d Time (Source) Location / / Volume Laterality Blood specimen 08/08/2017 8:02 AM 018 8:02 (specimen) EST AM EST Yonathan Smith MD POINT OF CARE TEST ORDERABLE S Performing Organization Address City/[facility]/[place] [address] (ABNORMAL) APTT (08/08/2017 4:51 AM EST) athologist Signature PTT >160 25 - 35 [facility] ([facility] sec [facility] LABORATORY Comment: Called by: HOWARD, Read [...] Organization Address City/State/[place] [address] (ABNORMAL) Differential, Automated (08/08/2017 4:51 AM EST) [facility] Method Time Signature Neutrophils % 77.9 % [facility] LABORATORY Neutr Abs (ANC) 8.17 (H) 1.70 - [facility] 6.10 [facility] x10(3)/[facility] LABORATORY Lymphocytes % 10.3 % [facility] LABORATORY Lymphocytes Abs 1.1 0.9 - 3.2 [facility] x10(3)/[facility] LABORATORY Monocytes % 7.0 % [facility] LABORATORY Monocyte Abs 0.7 0.3 - 0.9 [facility] x10(3)/[facility] LABORATORY Eosinophils % 3.6 % [facility] LABORATORY Eosinophils Abs 0.4 0.0 - 0.4 [facility] x10(3)/[facility] LABORATORY Basophils % 0.5 % [facility] LABORATORY Basophils Abs 0.0 0.0 - 0.1 [facility] x10(3)/[facility] LABORATORY Immature Gran [...] Abs 0.07 (H) 0.00 - 0.04 x10(3)/[facility] LABORATORY Specimen Anatomical Collection Method Collection Time Receive d Time (Source) Location / / Volume Laterality Blood specimen 08/08/2017 4:51 AM 018 5:14 (specimen) EST AM EST Resulting Agency Comment Spec In Lab Yonathan Smith MD HEMATOLOGY ORDERABLES Performing Organization Address City/State/[place] [address] (ABNORMAL) Hemogram (08/08/2017 4:51 AM EST) Analysis Performed At Patho logist Time Signature WBC 10.5 (H) 4.0 - 9.5 [facility] x10(3)/[facility] LABORATORY RBC 3.27 (L) 4.58 - [facility] 5.54 [facility] x10(6)/[facility] LABORATORY Hemoglobin 9.3 (L) 13.7 - [facility] 16.5 gm/dL [facility] LABORATORY Hematocrit 30.3 (L) 40.5 - [facility] 48.5 % [facility] LABORATORY MCV 92.7 82.9 - [facility] 93.1 [facility] LABORATORY MCH 28.4 27.5 - [facility] RYAN 32.1 pg [facility] LABORATORY MCHC 30.7 (L) 32.0 - [facility] 35.7 gm/dL [facility] LABORATORY Platelets 252 145 - 357 [facility] x10(3)/[facility] LABORATORY RDWSD 54.6 (H) 36.0 - [facility] RYAN 45.0 [facility] LABORATORY RDWCV 16.2 (H) 11.4 - [facility] RYAN 13.8 % [facility] LABORATORY MPV 9.1 7.6 - 12.9 [facility] LABORATORY nRBC % Auto 0.0 % [facility] LABORATORY nRBC Abs Auto 0.000 0.000 - [place] [facility] 0.000 [facility] x10(3)/[facility] LABORATORY Specimen Anatomical Collection Method Collection Time Receive d Time (Source) Location / / Volume Laterality Blood specimen 08/08/2017 4:51 AM 018 5:14 (specimen) EST AM EST Resulting Agency Comment Spec In Lab Yonathan Smith MD HEMATOLOGY ORDERABLES Performing Organization Address City/[facility]/[place] [address] (ABNORMAL) Prothrombin Time (08/08/2017 [...] Organization Address City/State/[place] [address] (ABNORMAL) Basic Metabolic Panel (non-fasting) (08/08/2017 4:51 AM EST) athologist Signature Glucose Lvl 229 (H) 65 - 199 [facility] mg/dL [facility] LABORATORY Comment: Diabetes: >=200 mg/dL plus symp toms BUN 35 (H) 10 - 20 mg/dL [facility] LABORATORY Creatinine 1.57 (H) 0.80 - 1.50 mg/dL [facility] [...] or in patients with acute kidney failure. http://[employer]/DHnkdep http://[employer]/DHMCnkf Specimen Anatomical Collection Method Collection Time Receive d Time (Source) Location / / Volume Laterality Blood specimen 08/08/2017 4:51 AM 018 5:14 (specimen) EST AM EST Resulting Agency Comment Spec In Lab Yonathan Smith MD CHEMISTRY ORDERABLES Performing Organization Address City/State/ZIP Code Phon e Number [address] POCT Glucose (08/08/2017 4:20 AM EST) athologist Signature POC Glucose 193 65 - 199 [facility] mg/dL [facility] LABORATORY Comment: Supplemental ranges: <140 mg/dL before meals <180 mg/dL all other times of the day Specimen Anatomical Collection Method Collection Time Receive d Time (Source) Location / / Volume Laterality Blood specimen 08/08/2017 4:20 AM 018 4:20 (specimen) EST AM EST Yonathan Smith MD POINT OF CARE TEST ORDERABLE S Performing Organization Address City/[facility]/ZIP Code Phon e Number [address] POCT Glucose (08/07/2017 11:11 PM EST) athologist Signature POC Glucose 124 65 - 199 [place] [facility] mg/dL [facility] LABORATORY Comment: Supplemental ranges: <140 mg/dL before meals <180 mg/dL all other times of the day Specimen Anatomical Collection Method Collection Time Receive d Time (Source) Location / / Volume Laterality Blood specimen 08/07/2017 11:11 8 (specimen) PM EST 11:11 PM EST Yonathan Smith MD POINT OF CARE TEST ORDERABLE S Performing Organization Address City/[facility]/[place] [address] (ABNORMAL) APTT (08/07/2017 10:18 [...] HEMATOLOGY ORDERABLES Performing Organization Address City/[facility] Code Phon e Number [address] POCT Glucose (08/07/2017 8:10 PM EST) P athologist Signature POC Glucose 140 65 - 199 [facility] mg/dL [facility] LABORATORY Comment: Supplemental ranges: <140 mg/dL before meals <180 mg/dL all other times of the day Specimen Anatomical Collection Method Collection Time Receive d Time (Source) Location / / Volume Laterality Blood specimen 08/07/2017 8:10 PM 018 8:10 (specimen) EST PM EST Yonathan Smith MD POINT OF CARE TEST ORDERABLE S Performing Organization Address City/[facility]/[place] [address] POCT Glucose (08/07/2017 5:27 PM EST) athologist Signature POC Glucose 187 65 - 199 [facility] mg/dL [facility] LABORATORY Comment: Supplemental ranges: <140 mg/dL before meals <180 mg/dL all other times of the day Specimen Anatomical Collection Method Collection Time Receive d Time (Source) Location / / Volume Laterality Blood specimen 08/07/2017 5:27 PM 018 5:27 (specimen) EST PM EST Yonathan Smith MD POINT OF CARE TEST ORDERABLE S Performing Organization Address City/[facility]/ZIP Code Phon e Number [address] POCT Glucose (08/07/2017 3:29 PM EST) athologist Signature POC Glucose 86 65 - 199 [facility] mg/dL [facility] LABORATORY Comment: Supplemental ranges: <140 mg/dL before meals <180 mg/dL all other times of the day Specimen Anatomical Collection Method Collection Time Receive d Time (Source) Location / / Volume Laterality Blood specimen 08/07/2017 3:29 PM 018 3:29 (specimen) EST PM EST Yonathan Smith MD POINT OF CARE TEST ORDERABLE S Performing Organization Address City/[facility]/ZIP [facility] [place] [address] (ABNORMAL) APTT (08/07/2017 2:50 [...] HEMATOLOGY ORDERABLES Performing Organization Address City/[facility]/[place] [address] (ABNORMAL) POCT Glucose (08/07/2017 2:23 PM EST) athologist Signature POC Glucose 55 (L) 65 - 199 [facility] mg/dL [facility] LABORATORY Comment: Supplemental ranges: <140 mg/dL before meals <180 mg/dL all other times of the day Specimen Anatomical Collection Method Collection Time Receive d Time (Source) Location / / Volume Laterality Blood specimen 08/07/2017 2:23 PM 018 2:23 (specimen) EST PM EST Yonathan Smith MD POINT OF CARE TEST ORDERABLE S Performing Organization Address City/State/ZIP Code Phon e Number [address] POCT Glucose (08/07/2017 12:08 PM EST) athologist [facility] POC Glucose 77 65 - 199 [facility] mg/dL [facility] LABORATORY Comment: Supplemental ranges: <140 mg/dL before meals <180 mg/dL all other times of the day Specimen Anatomical Collection Method Collection Time Receive d Time (Source) Location / / Volume Laterality Blood specimen 08/07/2017 12:08 8 (specimen) PM EST 12:08 PM EST Yonathan Smith MD POINT OF CARE TEST ORDERABLE S Performing Organization Address City/State/ZIP Code Phon e Number [address] (ABNORMAL) Differential, Automated (08/07/2017 7:30 AM EST) [facility] gist Method Time Signature Neutrophils % 73.8 % [facility] LABORATORY Neutr Abs (ANC) 7.17 (H) 1.70 - [facility] 6.10 [facility] x10(3)/[facility] LABORATORY Lymphocytes % 12.2 % [facility] LABORATORY Lymphocytes Abs 1.2 0.9 - 3.2 [facility] x10(3)/[facility] LABORATORY Monocytes % 9.0 % [facility] LABORATORY Monocyte Abs 0.9 0.3 - 0.9 [facility] x10(3)/[facility] LABORATORY Eosinophils % 3.9 % [facility] LABORATORY Eosinophils Abs 0.4 0.0 - 0.4 [facility] x10(3)/[facility] LABORATORY Basophils % 0.6 % [facility] LABORATORY Basophils Abs 0.1 0.0 - 0.1 [facility] x10(3)/[facility] LABORATORY Immature Gran % 0.50 % [...] Abs 0.05 (H) 0.00 - 0.04 x10(3)/[facility] LABORATORY Specimen Anatomical Collection Method Collection Time Receive d Time (Source) Location / / Volume Laterality Blood specimen 08/07/2017 7:30 AM 018 7:45 (specimen) EST AM EST Resulting Agency Comment Spec In Lab Yonathan Smith MD HEMATOLOGY ORDERABLES Performing Organization Address City/State/[place] [address] (ABNORMAL) Hemogram (08/07/2017 7:30 AM EST) Analysis Performed At Patho logist Time Signature WBC 9.7 (H) 4.0 - 9.5 [facility] x10(3)/[facility] LABORATORY RBC 3.54 (L) 4.58 - [facility] 5.54 [facility] x10(6)/[facility] LABORATORY Hemoglobin 9.9 (L) 13.7 - [facility] 16.5 gm/dL [facility] LABORATORY Hematocrit 32.3 (L) 40.5 - [facility] 48.5 % [facility] LABORATORY MCV 91.2 82.9 - [facility] 93.1 fL [facility] LABORATORY MCH 28.0 27.5 - [facility] 32.1 pg [facility] LABORATORY MCHC 30.7 (L) 32.0 - [facility] 35.7 gm/dL [facility] LABORATORY Platelets 312 145 - 357 [facility] x10(3)/[facility] LABORATORY RDWSD 53.2 (H) 36.0 - [facility] 45.0 [facility] LABORATORY RDWCV 16.0 (H) 11.4 - [facility] 13.8 % [facility] LABORATORY MPV 8.9 7.6 - 12.9 [facility] LABORATORY nRBC % Auto 0.0 % [facility] LABORATORY nRBC Abs Auto 0.000 0.000 - [facility] 0.000 [facility] x10(3)/[facility] LABORATORY Specimen Anatomical Collection Method Collection Time Receive d Time (Source) Location / / Volume Laterality Blood specimen 08/07/2017 7:30 AM 018 7:45 (specimen) EST AM EST Resulting Agency Comment Spec In Lab Yonathan Smith MD HEMATOLOGY ORDERABLES Performing Organization Address City/State/[place] [address] (ABNORMAL) Basic Metabolic Panel (non-fasting) (08/07/2017 7:30 AM EST) athologist Signature Glucose Lvl 80 65 - 199 [facility] mg/dL [facility] LABORATORY Comment: Diabetes: >=200 mg/dL plus symp toms BUN 31 (H) 10 - 20 mg/dL [facility] LABORATORY Creatinine 1.22 0.80 - 1.50 mg/dL [facility] [...] or in patients with acute kidney failure. http://[employer]/DHnkdep http://[employer]/MCnkf Specimen Anatomical Collection Method Collection Time Receive d Time (Source) Location / / Volume Laterality Blood specimen 08/07/2017 7:30 AM 018 7:45 (specimen) EST AM EST Resulting Agency Comment Spec In Lab Yonathan Smith MD CHEMISTRY ORDERABLES Performing Organization Address City/[facility]/ZIP [facility] Phon e Number [address] POCT Glucose (08/07/2017 7:27 AM EST) P athologist Signature POC Glucose 81 65 - 199 [facility] mg/dL [facility] LABORATORY Comment: Supplemental ranges: <140 mg/dL before meals <180 mg/dL all other times of the day Specimen Anatomical Collection Method Collection Time Receive d Time (Source) Location / / Volume Laterality Blood specimen 08/07/2017 7:27 AM 018 7:27 (specimen) EST AM EST Yonathan Smith MD POINT OF CARE TEST ORDERABLE S Performing Organization Address City/[facility]/ZIP [facility] [place] [address] APTT (08/07/2017 7:04 AM [...] HEMATOLOGY ORDERABLES Performing Organization Address City/[facility]/[place] [address] (ABNORMAL) Prothrombin Time (08/07/2017 [...] HEMATOLOGY ORDERABLES Performing Organization Address City/[facility]/[place] [address] POCT Glucose (08/07/2017 4:03 AM EST) athologist Signature POC Glucose 93 65 - 199 [facility] mg/dL [facility] LABORATORY Comment: Supplemental ranges: <140 mg/dL before meals <180 mg/dL all other times of the day Specimen Anatomical Collection Method Collection Time Receive d Time (Source) Location / / Volume Laterality Blood specimen 08/07/2017 4:03 AM 018 4:03 (specimen) EST AM EST Yonathan Smith MD POINT OF CARE TEST ORDERABLE S Performing Organization Address City/State/[place] [address] POCT Glucose (08/07/2017 12:04 AM EST) athologist Signature POC Glucose 107 65 - 199 [facility] mg/dL [facility] LABORATORY Comment: Supplemental ranges: <140 mg/dL before meals <180 mg/dL all other times of the day Specimen Anatomical Collection Method Collection Time Receive d Time (Source) Location / / Volume Laterality Blood specimen 08/07/2017 12:04 8 (specimen) AM EST 12:04 AM EST Yonathan Smith MD POINT OF CARE TEST ORDERABLE S Performing Organization Address City/State/ZIP Code Phon e Number [address] POCT Glucose (08/06/2017 7:56 PM EST) athologist Signature POC Glucose 178 65 - 199 [facility] mg/dL [facility] LABORATORY Comment: Supplemental ranges: <140 mg/dL before meals <180 mg/dL all other times of the day Specimen Anatomical Collection Method Collection Time Receive d Time (Source) Location / / Volume Laterality Blood specimen 08/06/2017 7:56 PM 018 7:56 (specimen) EST PM EST Yonathan Smith MD POINT OF CARE TEST ORDERABLE S Performing Organization Address City/[facility]/ZIP Code Phon e Number [address] [id number] (08/06/2017 2:32 PM EST) Component Value Ref Test Analysis Performed At [facility] gist Range Method Time Signature VB Text Department: Vascular Surgery Lab VASCUBASE Report Patient: [id number] (GREGORY HOANG) CPT: 4300401 ICD10: I99.8 Referring Physician: YONATHAN SMITH ?? [...] than 240, repeat 8 units (no mo 612 ( Given - Provider: Mira Truong RN) [...]
Routine documented in this encounter Care Teams Trailer Driver Relationship Specialty Start Date End Date Lovely Vicente MD PCP - General 04/16/[address] [place] [address] [address] [facility] [address] [place] [address] documented as of this encounter
--- OUTSIDE RECORDS SUMMARY | 2022-03-16 08:18 | XMS_ITS | Encounter Summary ---
:1945 Author Organization [facility] [place] [address] Care Team Providers Name Role Phone Lovely Vicente MD Primary Care Provider Encounter Details Date Type Department Care Team Description 08/09/2017 Clinical Support Same Day at [facility] Canceled (D-SCHED ERROR [facility] / CORRECT [place] ) [place] [address] Social History Tobacco Use Types Packs/Day [...] MD [facility] [address] [place], [place] 0[address] (Wo rk) 05/28/2022 Appointment Cardiology Zulma Dolan MD [facility] [address] [place] [address] (Wo rk) 05/28/2022 Laboratory Appointment Lab 05/28/2022 Office Visit Cardiology Zulma Dolan [place] [address] Liz Poole PA [facility] [place] [address] 06/10/2022 Office Visit Dermatology Laura Scherer MD [facility] ER [address] [place], [place] [address] (Wo rk) documented as of this encounter Procedures Procedure Name Priority Date/Time Associated Diagnosis Comme nts SEA CAPTAIN 08/09/2017 12:00 AM Resul ts for this SCAN EST procedure are i n the results section. documented in this encounter Results SCAN DOC: SEA CAPTAIN (08/09/2017 12:00 AM EST) Narrative 08/09/2017 12:00 AM EST This result has an attachment that is no t available. Ordered by an unspecified provider. Scanning Provider MEDIA MGR SCAN EXT ORDR/RSLT documented in this encounter Visit Diagnoses Not on filedocumented in this encounter Care Teams Acds Block 1 Operator Relationship Specialty Start Date End Date Lovely Vicente MD PCP - General 04/16/[address] [place] [address] documented as of this encounter
--- OUTSIDE RECORDS SUMMARY | 2022-03-16 08:19 | XMS_ITS | Encounter Summary ---
:1945 [place] [address] Care Team Providers Name Role Phone Lovely Vicente MD Primary Care Provider Encounter Details Date Type Department Care Team Description 08/04/2017 Orders Only Cardiac Surgery Makayla Wilson HORSE BREAKER [facility] Jorge [facility] [place] [address] CARDIAC SURGERY [phone] [place], [place] [address] (Wo rk) Social History [...] [facility] ER [address] [place] [address] (Wo rk) 05/28/2022 Appointment Cardiology Zulma Dolan MD [facility] [address] [place], [place] [address] (Wo rk) 05/28/2022 Laboratory Appointment Lab 05/28/2022 Office Visit Cardiology Zulma Dolan [place] [facility] [address] Liz Poole PA [facility] [place] [address] 06/10/2022 Office Visit Dermatology Laura Scherer MD [facility] ER [address] [place], [place] 0[address] (Wo rk) documented as of this encounter Visit Diagnoses Not on filedocumented in this encounter Care Teams Job Training Supervisor Relationship Specialty Start Date End Date Lovely Vicente MD PCP - General 04/16/[address] [place] [address] documented as of this encounter
--- OUTSIDE RECORDS SUMMARY | 2022-03-16 08:19 | XMS_ITS | Encounter Summary ---
:1945 [place] [address] Care Team Providers Name Role Phone Lovely Vicente MD Primary Care Provider Encounter Details Date Type Department Care Team Description 07/29/2017 Hospital Encounter Vascular Lab at Critic monica Huber lower limb [facility] [place] [phone] Social History Tobacco Use Types Packs/Day Years [...] MD [facility] CARDIOLOGY [place], [place] 0[address] (Wo rk) 05/28/2022 Appointment Cardiology Zulma Dolan MD [facility] [place], [place] [address] (Wo rk) 05/28/2022 Laboratory Appointment Lab 05/28/2022 Office Visit Cardiology Zulma Dolan MD [facility] [place] [address] Liz Poole PA [facility] [place] [address] 06/10/2022 Office Visit Dermatology Laura Scherer MD [facility] [address] [place], [place] [address] (Wo rk) documented as of this encounter Visit Diagnoses Diagnosis Critical lower limb ischemia Unspecified circulatory system disorder documented in this encounter Care Teams Dub Room Engineer Relationship Specialty Start Date End Date Lovely Vicente MD PCP - General 04/16/[address] [place] [address] documented as of this encounter
--- OUTSIDE RECORDS SUMMARY | 2022-03-16 08:19 | XMS_ITS | Encounter Summary ---
:1945 Author Organization [facility] [place] [address] Care Team Providers Name Role Phone Lovely Vicente MD Primary Care Provider Encounter Details Date Type Department Care Team Description 08/03/2017 Telephone Pain Management at Angeles Bueno, [place] [address] Social History Tobacco Use Types Packs/Day [...] Management Center Preauthorization Request Patient: Don Fatima [id number] Fax received from [facility] requesting we obtain prior authorization for Lidocaine Patches prescribed by Barbra Soares APRN. RX insurance plan: [facility] insurance telephone: [phone] Patient ?? Diagnosis: right foot pain secondary to PVD and ischemia ?? Previous medications attempted: Tylenol, Tramadol, Dilaudid Authorization/Reference number: [id number], PBP Code 801 _x_ denied, provider and patient informed _x_ appeal initiated by provider, patient informed Angeles Rodrigez, RN documented in this encounter Plan of Treatment Upcoming Encounters Date Type Specialty Care Team Description 03/26/2022 Office Visit Cardiology Vitaliy Nobles MD [facility] CARDIOLOGY [place], [place] [address] (Wo rk) 05/28/2022 Appointment Cardiology Zulma Dolan MD [facility] [place], [place] [address] (Wo rk) 05/28/2022 Laboratory Appointment Lab 05/28/2022 Office Visit Cardiology Zulma Dolan MD [facility] [place] [address] Liz Poole PA [facility] [place] [address] 06/10/2022 Office Visit Dermatology Laura Scherer MD [facility] DR TE[address]DERMAT [place], [place] [address] (Wo rk) documented as of this encounter Visit Diagnoses Not on filedocumented in this encounter Care Teams Vice President Of Software Development Relationship Specialty Start Date End Date Lovely Vicente MD PCP - General 04/16/[address] [place] [address] documented as of this encounter
--- OUTSIDE RECORDS SUMMARY | 2022-03-16 08:19 | XMS_ITS | Encounter Summary ---
:1945 Author Organization [facility] [place] [address] Care Team Providers Name Role Phone Lovely Vicente MD Primary Care Provider Reason for Visit Auth/Cert Specialty Diagnoses / Procedures Referred By Contact Refer red To Contact Diagnoses Critical lower limb ischemia CELLULITIS RT FOOT Procedures EMERGENCY Referral ID Status Reason Start Date Expiration Date Visits Requ ested Visits Authorized [id number] 1 1 Encounter Details Date Type Department Care Team Description 08/04/2017 Office Visit Cardiology at [facility] Danette Maxwell Incisional pain; [facility] A, DISPATCHER REFINERY Ischemic cardiomyopathy; [facility] ASCVD (arteriosclerotic card iovascular disease); [place], [place] Systolic heart failure, unspecified hear t failure chronicity [phone] CARDIOLOGY [phone] [place], [place] [address] Social History Tobacco [...] in this encounter Progress Notes Danette Maxwell, DISPATCHER REFINERY - 08/04/2017 3:00 PM EST ID and [...] 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 [...] [facility] [address] TADE[address] [place], [place] [address] (Wo rk) 05/28/2022 Appointment Cardiology Zulma Dolan MD [facility] [place], [place] [address] (Wo rk) 05/28/2022 Laboratory Appointment Lab 05/28/2022 Office Visit Cardiology Zulma Dolan MD [facility] [place] [address] Liz Poole PA [facility] [place] [address] 06/10/2022 Office Visit Dermatology Laura Scherer MD [facility] DR TEJA [address]MAT [place], [place] [address] (Wo rk) documented as of [...] Daniele gutiérrez 08/04/2017 4:13 PM Danette Maxwell DISPATCHER REFINERY IMG DX ORDERABLES documented in this encounter Visit Diagnoses Diagnosis Incisional pain Disturbance of skin sensation Ischemic cardiomyopathy Other specified forms of chronic ischemi c heart disease ASCVD (arteriosclerotic cardiovascular d isease) Unspecified cardiovascular disease Systolic heart failure, unspecified hear t failure chronicity Incisional pain Disturbance of skin sensation documented in this encounter Care Teams Equal Opportunity Assistant Relationship Specialty Start Date End Date Lovely Vicente MD PCP - General 04/16/[address] [place] [address] documented as of this encounter
--- OUTSIDE RECORDS SUMMARY | 2022-03-16 08:19 | XMS_ITS | Encounter Summary ---
:1945 Author Organization [facility] [place] [address] Care Team Providers Name Role Phone Lovely Vicente MD Primary Care Provider Encounter Details Date Type Department Care Team Description 08/02/2017 Telephone Pain Management at Angeles Bueno, [place] [address] Social History Tobacco Use Types Packs/Day [...] Management Center Preauthorization Request Patient: Don Fatima [id number] Fax received from [facility] requesting we obtain prior authorization for Lidocaine patches prescribed by Barbra Soares APRN. RX insurance plan: [employer] insurance telephone: [phone] Patient Diagnosis: right foot pain secondary to PVD and ischemia Previous medications attempted: Tylenol, Tramadol, Dilaudid The following action was taken after discussion with the manager field service: _x_ pharmacy informed Authorized dosage or amount: 5% on patch on for 12 hours, then remove for 12 hours. Angeles Rodrigez, RN documented in this encounter Plan of Treatment Upcoming Encounters Date Type Specialty Care Team Description 03/26/2022 Office Visit Cardiology Vitaliy Nobles MD [facility] [address] TADE[address] [place], [place] [address] (Wo rk) 05/28/2022 Appointment Cardiology Zulma Dolna MD [facility] [place], [place] [address] (Wo rk) 05/28/2022 Laboratory Appointment Lab 05/28/2022 Office Visit Cardiology uZlma Dolan MD [facility] [place] [address] Liz Poole PA [facility] [place] [address] 06/10/2022 Office Visit Dermatology Laura Scherer MD [facility] [address] TE[address] [place], [place] [address] (Wo rk) documented as of this encounter Visit Diagnoses Not on filedocumented in this encounter Care Teams Bridge Leverman Relationship Specialty Start Date End Date Lovely Vicente MD PCP - General 04/16/[address] [place] [address] documented as of this encounter
--- OUTSIDE RECORDS SUMMARY | 2022-03-16 08:19 | XMS_ITS | Encounter Summary ---
:1945 Author Organization [facility] [place] [address] Care Team Providers Name Role Phone Lovely Vicente MD Primary Care Provider Encounter Details Date Type Department Care Team Description 08/06/2017 Orders Only Vascular Surgery at [facility] Eden Moss APRN Ischemia of foot [facility] [place] [address] VASCULAR SURGERY [phone] [place], [place] [address] (Wo rk) Social History Tobacco [...] MD [facility] ER DR [place]LYLE [place] [address] (Wo rk) 05/28/2022 Appointment Cardiology Zulma Dolan MD [facility] [address] [place] [address] (Wo rk) 05/28/2022 Laboratory Appointment Lab 05/28/2022 Office Visit Cardiology Zulma Dolan MD [facility] [place] [address] Liz Poole PA [facility] [place] [address] 06/10/2022 Office Visit Dermatology Laura Scherer MD [facility] ER DR [address]-DERMAT [place], [place] [address] (Wo rk) documented as [...] 444 ms MUSE SYSTEM (Bezet) Calculated P [place] 44 degrees MUSE SYSTEM Calculated R [place] -31 degrees MUSE SYSTEM Calculated T [place] 106 degrees MUSE SYSTEM INTERPRETATION Normal sinus [...] Prealbumin 19 (L) 20 - 40 [facility] mg/dL [facility] Comment: Prealbumin levels are generally [...] City/State/ZIP Code Phon e Number [place] [phone] (ABNORMAL) Basic Metabolic Panel (non-fasting) (08/06/2017 12:32 PM EST) athologist Signature Glucose Lvl 92 65 - 199 [facility] mg/dL [facility] Comment: Diabetes: >=200 mg/dL plus symp toms BUN 29 (H) 10 - 20 mg/dL [facility] [...] HOSPITAL LABORATORY Estimated GFR 53 (L) >=60 [facility] Comment: The reported eGFR should be multiplied b y 1.2 for patients. The MDRD is not an appropriate measure o f renal function for patients with body mass extremes or in patients with acute kidney failure. http://Quosis.Spring Metrics/DHnkdep http://Joongel/DHMCnkf Specimen Anatomical Collection Method Collection Time Receive d Time (Source) Location / / Volume Laterality Blood specimen 08/06/2017 12:32 8 1:15 (specimen) PM EST PM EST Resulting Agency Comment Spec In Lab Arik Clement MD CHEMISTRY ORDERABLES Performing Organization Address City/State/[place] [address] (ABNORMAL) Hemogram (08/06/2017 12:32 PM EST) Analysis Performed At Patho logist Time Signature WBC 11.8 (H) 4.0 - 9.5 [facility] x10(3)/[facility] LABORATORY RBC 3.49 (L) 4.58 - [facility] 5.54 [facility] x10(6)/[facility] LABORATORY Hemoglobin 9.9 (L) 13.7 - [facility] 16.5 gm/dL [facility] Hematocrit 32.0 (L) 40.5 - [facility] 48.5 % [facility] MCV 91.7 82.9 - [facility] 93.[address] [facility] LABORATORY MCH 28.4 27.5 - [place] [facility] 32.1 pg [facility] MCHC 30.9 (L) 32.0 - [facility] 35.7 gm/dL [facility] Platelets 326 145 - 357 [facility] x10(3)/[facility] LABORATORY RDWSD 53.4 (H) 36.0 - [place] 45.[address] [facility] LABORATORY RDWCV 16.0 (H) 11.4 - [facility] RYAN 13.8 % [facility] MPV 9.1 7.6 - 12.9 [facility] LABORATORY nRBC % Auto 0.0 % [facility] LABORATORY nRBC Abs Auto 0.000 0.000 - [place] 0.000 [facility] x10(3)/[facility] LABORATORY Specimen Anatomical Collection Method Collection Time Receive d Time (Source) Location / / Volume Laterality Blood specimen 08/06/2017 12:32 8 1:15 (specimen) PM EST PM EST Resulting Agency Comment Spec In Lab Arik Clement MD HEMATOLOGY ORDERABLES Performing Organization Address City/State/[place] [address] documented in this encounter Visit Diagnoses Diagnosis Ischemia of foot Unspecified circulatory system disorder documented in this encounter Care Teams Biodiesel Operations Manager Relationship Specialty Start Date End Date Lovely Viecnte MD PCP - General 04/16/[address] [place] [address] documented as of this encounter
--- OUTSIDE RECORDS SUMMARY | 2022-03-16 08:19 | XMS_ITS | Encounter Summary ---
:1945 [place] [address] Care Team Providers Name Role Phone Lovely Vicente MD Primary Care Provider Encounter Details Date Type Department Care Team Description 07/29/2017 Telephone Pain Aurelia Crawford MD [facility] [place] [address] PAIN CLINIC [phone] [place], [place] [address] (Wo rk) Social History Tobacco [...] Nobles MD [facility] [address] TADE[address] [place], [place] [address] (Wo rk) 05/28/2022 Appointment Cardiology Zulma Dolan MD [facility] [place], [place] [address] (Wo rk) 05/28/2022 Laboratory Appointment Lab 05/28/2022 Office Visit Cardiology Zulma Dolan MD [facility] [place] [address] Liz Poole PA [facility] [place] [address] 06/10/2022 Office Visit Dermatology Laura Scherer MD [facility] DR [address]DERMAT [facility] [place], [place] [address] (Wo rk) documented as of this encounter Visit Diagnoses Not on filedocumented in this encounter Care Teams Commercial Loan Underwriter Relationship Specialty Start Date End Date Lovely Vicente MD PCP - General 04/16/[address] [place] [address] documented as of this encounter
--- OUTSIDE RECORDS SUMMARY | 2022-03-16 08:19 | XMS_ITS | Encounter Summary ---
:1945 Author Organization [facility] [place] [address] Care Team Providers Name Role Phone Lovely Vicente MD Primary Care Provider Reason for Visit Auth/Cert Specialty Diagnoses / Procedures Referred By Contact Refer red To Contact Diagnoses Critical lower limb ischemia CELLULITIS RT FOOT Procedures EMERGENCY Referral ID Status Reason Start Date Expiration Date Visits Requ ested Visits Authorized [id number] 1 1 Encounter Details Date Type Department Care Team Description 08/04/2017 Laboratory Appointment Lab 3L [facility] [place] [address] Social History Tobacco Use Types Packs/Day [...] Vitaliy Nobles MD [facility] ER [address] [place] [place], [place] [address] (Wo rk) 05/28/2022 Appointment Cardiology Zulma Dolan MD [facility] [place] [address] [place], [place] [address] (Wo rk) 05/28/2022 Laboratory Appointment Lab 05/28/2022 Office Visit Cardiology Zulma Dolan MD [facility] [place] [address] Liz Poole PA [facility] [place] [address] 06/10/2022 Office Visit Dermatology Laura Scherer MD [facility] ER DR TEJA [address] [place], [place] [address] (Wo rk) documented as of this encounter Visit Diagnoses Not on filedocumented in this encounter Care Teams Core Cutter Relationship Specialty Start Date End Date Lovely Vicente MD PCP - General 04/16/[address] [place] [address] documented as of this encounter
--- OUTSIDE RECORDS SUMMARY | 2022-03-16 08:19 | XMS_ITS | Encounter Summary ---
:1945 Author Organization [facility] [place] [address] Care Team Providers Name Role Phone Lovely Vicente MD Primary Care Provider Reason for Visit Auth/Cert Specialty Diagnoses / Procedures Referred By Contact Refer red To Contact Diagnoses Critical lower limb ischemia CELLULITIS RT FOOT Procedures EMERGENCY Referral ID Status Reason Start Date Expiration Date Visits Requ ested Visits Authorized [id number] 1 1 Encounter Details Date Type Department Care Team Description 08/06/2017 Clinical Support Same Day at [facility] Ischemia of foot [facility] [place] [address] Social History Tobacco Use Types Packs/Day [...] noother symptoms except severe right foot pain. [facility] clinic called as pt on route [...] Vitaliy Nobles MD [facility] CARDIOLOGY [place], [place] [address] (Wo rk) 05/28/2022 Appointment Cardiology Zulma Dolan MD [facility] [place], [place] [address] (Wo rk) 05/28/2022 Laboratory Appointment Lab 05/28/2022 Office Visit Cardiology Zulma Dolan MD [facility] [place] [place] [address] Liz Poole PA [facility] [place] [address] 06/10/2022 Office Visit Dermatology Laura Scherer MD [facility] DR TEJA GR[address]DERMAT [place], [place] [address] (Wo rk) documented [...] 444 ms MUSE SYSTEM (Bezet) Calculated P [place] 44 degrees MUSE SYSTEM Calculated R [place] -31 degrees MUSE SYSTEM Calculated T [place] 106 degrees MUSE SYSTEM INTERPRETATION Normal sinus [...] disorder documented in this encounter Care Teams Accounts Receivable Accountant Relationship Specialty Start Date End Date Lovely Vicente MD PCP - General 04/16/[address] [place] [address] documented as of this encounter
--- OUTSIDE RECORDS SUMMARY | 2022-03-16 08:19 | XMS_ITS | Encounter Summary ---
:1945 Author Organization [facility] [place] [address] Care Team Providers Name Role Phone Lvoely Vicente MD Primary Care Provider Reason for Visit Auth/Cert Specialty Diagnoses / Procedures Referred By Contact Refer red To Contact Diagnoses Critical lower limb ischemia CELLULITIS RT FOOT Procedures EMERGENCY Referral ID Status Reason Start Date Expiration Date Visits Requ ested Visits Authorized [id number] 1 1 Encounter Details Date Type Department Care Team Description 08/04/2017 [facility] [place] thrombosis of [facility] [place] [phone] Social History Tobacco Use Types Packs/Day Years [...] MD [facility] [address] TADE[address] [place], [place] [address] (Wo rk) 05/28/2022 Appointment Cardiology Zulma Dolan MD [facility] [address] [place], [place] [address] (Wo rk) 05/28/2022 Laboratory Appointment Lab 05/28/2022 Office Visit Cardiology Zulma Dolan [place] [address] Liz Poole PA [facility] [place] [address] 06/10/2022 Office Visit Dermatology Laura Scherer MD [facility] [address] TEJA [address] [place], [place] [address] (Wo rk) documented as of [...] Component Value Ref Test Analysis Performed At [facility] Range Method Time Signature VB Text Department: Vascular Surgery Lab VASCUBASE Report Patient: [id number] (GREGORY HOANG) CPT: 14135 ICD10: I82.541 Referring Physician: TAMIKO HUTSON ?? [...] extremity documented in this encounter Care Teams Drama Director Relationship Specialty Start Date End Date Lovely Vicente MD PCP - General 04/16/[address] [place] [id number] documented as of this encounter
--- OUTSIDE RECORDS SUMMARY | 2022-03-16 08:19 | XMS_ITS | Encounter Summary ---
:1945 [place] [address] Care Team Providers Name Role Phone Lovely Vicente MD Primary Care Provider Encounter Details Date Type Department Care Team Description 08/03/2017 Hospital Encounter Radiology Library at [place], Tommy Mijares [facility] [place] [address] VASCULAR SURGERY [phone] [place], [place] [address] (Wo rk) Social History Tobacco [...] MD [facility] DR T[address] [place], [place] [address] (Wo rk) 05/28/2022 Appointment Cardiology Zulma Dolan MD [facility] [address] [place], [place] [address] (Wo rk) 05/28/2022 Laboratory Appointment Lab 05/28/2022 Office Visit Cardiology Zulma Dolan MD [facility] [place] [place] [address] Liz Poole PA [facility] [place] [address] 06/10/2022 Office Visit Dermatology Laura Scherer MD [facility] DR TJ[address] GR[address]MAT [place], [place] [address] (Wo rk) documented as of [...] Time Received Time / Laterality Volume Narrative [facility] - 08/03/2017 6:01 PM EST This exam is for storage only and is aut o-finalizing. Arik Clement MD IMG FILM LIBRARY ORDERABLES Performing Organization Address City/State/ZIP Code Phon e Number [place], [place] documented in this encounter Visit Diagnoses Diagnosis Pain Generalized pain documented in this encounter Care Teams Rotor Casting Machine Operator Relationship Specialty Start Date End Date Lovely Vicente MD PCP - General 04/16/[address] [place] [address] documented as of this encounter
--- OUTSIDE RECORDS SUMMARY | 2022-03-16 08:19 | XMS_ITS | Encounter Summary ---
:1945 Author Organization [facility] Address [facility] [place] [address] Care Team Providers Name Role Phone Lovely Vicente MD Primary Care Provider Encounter Details Date Type Department Care Team Description 07/29/2017 Transcribe Orders Laboratory Lovely Vicente, Coronary artery rupture; [facility] Ischemic cardiomyopathy; [facility] [address] Atherosclerosis of [place] co ronary artery, angina presence unspecified, unspecified whether [place] or transplanted heart; [place], [place] [address] Essential hypertension, malignant; [address] [place], [place] 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, unspecified longterm insulin use status [phone] Social History Tobacco Use Types Packs/Day Years [...] [facility] ER [address] T[address]O [place], [place] [address] (Wo rk) 05/28/2022 Appointment Cardiology Zulma Dolan MD [facility] [place], [place] [address] (Wo rk) 05/28/2022 Laboratory Appointment Lab 05/28/2022 Office Visit Cardiology Zulma Dolan MD [facility] [place] [address] Liz Poole PA [facility] [place] [address] 06/10/2022 Office Visit Dermatology Laura Scherer MD [facility] [address]DERMAT [place], [place] [address] (Wo rk) Scheduled Orders Name Type Priority Associated Diagnoses Order S chedule Lab Use Only, Fax Lab Routine Coronary arter y rupture Expected: 07/29/2017 Request Ischemic cardiom yopathy (Approximate), Atherosclerosis of [place] Ex jose: 07/29/2018 coronary artery, angina presence unspecified, unspecified whether [place] or transplanted heart Essential hypertension, malignant documented as of this encounter Results Uric acid (08/04/2017 12:55 PM EST) P athologist Signature Uric Acid 7.1 3.5 - 8.5 [facility] mg/dL [facility] LABORATORY Specimen Anatomical Collection Method Collection Time Receive d Time (Source) Location / / Volume Laterality Blood specimen 08/04/2017 12:55 8 1:01 (specimen) PM EST PM EST Resulting Agency Comment Spec In Lab Lovely Vicente MD CHEMISTRY ORDERABLES Performing Organization Address City/State/[place] [address] (ABNORMAL) Hemogram (08/04/2017 12:55 PM EST) Analysis Performed At Patho logist Time Signature WBC 15.8 (H) 4.0 - 9.5 [facility] RYAN x10(3)/[facility] LABORATORY RBC 3.48 (L) 4.58 - [place] RYAN 5.54 [facility] x10(6)/[facility] LABORATORY Hemoglobin 9.9 (L) 13.7 - [facility] 16.5 gm/dL [facility] LABOR[facility] Hematocrit 31.4 (L) 40.5 - [place] ZHA[place] 48.5 % [facility]OR[facility] MCV 90.2 82.9 - [facility] 93.1 [facility] LABORATORY MCH 28.4 27.5 - [place] R[place]AN 32.1 pg [facility]ORATORY MCHC 31.5 (L) 32.0 - [place] 35.7 gm/dL [facility]OR[facility]ORY Platelets 310 145 - 357 [facility] x10(3)/[facility] LABORATORY RDWSD 51.8 (H) 36.0 - [facility] 45.0 [facility] LABORATORY RDWCV 15.8 (H) 11.4 - [facility] 13.8 % [facility] LABORATORY MPV 8.9 7.6 - 12.9 [facility] LABORATORY nRBC % Auto 0.0 % [facility] LABORATORY nRBC Abs Auto 0.000 0.000 - [facility] 0.000 [facility] x10(3)/[facility] LABORATORY Specimen Anatomical Collection Method Collection Time Receive d Time (Source) Location / / Volume Laterality Blood specimen 08/04/2017 12:55 8 1:01 (specimen) PM EST PM EST Resulting Agency Comment Spec In Lab Lovely Vicente MD HEMATOLOGY ORDERABLES Performing Organization Address City/State/[place] [address] (ABNORMAL) Comprehensive metabolic panel (non-fasting) (08/04/2017 12:55 PM EST) P athologist Signature Glucose Lvl 208 (H) 65 - 199 [facility] mg/dL [facility] Comment: Diabetes: >=200 mg/dL plus symp toms BUN 32 (H) 10 - 20 mg/dL [facility] Creatinine 1.58 (H) 0.80 - [...] LABORATORY Albumin 3.4 3.2 - 5.2 gm/dL [facility] AST 20 0 - 39 unit/L [facility] LABORATORY ALT 21 0 - 55 unit/L [facility] LAB[facility]ORY Alk Phos 93 40 - 120 unit/L [facility] Total Bilirubin 0.4 0.2 - 1.3 mg/dL [facility] LABORATORY Estimated GFR 43 (L) >=60 [facility]ORY Comment: The reported eGFR should be multiplied b y 1.2 for patients. The MDRD is not an appropriate measure o f renal function for patients with body mass extremes or in patients with acute kidney failure. http://ChaCha[employer]/DHnkdep http://ChaCha.[employer]/DHMCnkf Specimen Anatomical Collection Method Collection Time Receive d Time (Source) Location / / Volume Laterality Blood specimen 08/04/2017 12:55 8 1:01 (specimen) PM EST PM EST Resulting Agency Comment Spec In Lab Lovely Vicente MD CHEMISTRY ORDERABLES Performing Organization Address City/State/[place] [address] (ABNORMAL) Hemoglobin A1c (08/04/2017 12:55 PM EST) Analysis Performed At Patho logist Time Signature Hemoglobin A1C 6.2 (H) 4.3 - 5.6 [place] DAV[facility] Comment: Reference Range: 4.3 - 5.6% [...] S67-81 Est Avg Gluc See note mg/dL [facility] Comment: Estimated Average [...] into estimated average glucose values. ??Diabetes Care 2008:31(8):7986-8403. Specimen Anatomical Collection Method Collection Time Receive d Time (Source) Location / / Volume Laterality Blood specimen 08/04/2017 12:55 8 1:01 (specimen) PM EST PM EST Resulting Agency Comment Spec In Lab Lovely Vicente MD CHEMISTRY ORDERABLES Performing Organization Address City/[facility]/[place] [address] (ABNORMAL) Prothrombin Time (08/04/2017 12:55 PM EST) P athologist Signature PT 35.4 (H) 11.8 - 14.0 [facility] LABORATORY INR 3.5 (H) 0.9 - 1.1 [facility] [...] Vicente MD HEMATOLOGY ORDERABLES Performing Organization Address City/[facility] [place] [address] documented in this encounter Visit Diagnoses Diagnosis Coronary artery rupture Acute myocardial infarction, unspecified site, episode of care unspecified Ischemic cardiomyopathy Other specified forms of chronic ischemi c heart disease Atherosclerosis of [place] coronary arter y, angina presence unspecified, unspecified whether [place] or transplanted heart Essential hypertension, malignant Diabetes mellitus due to underlying cond ition with diabetic nephropathy, unspecified intermediate accountant insulin use status documented in this encounter Care Teams Tennis Desk Team Member Relationship Specialty Start Date End Date Lovely Vicente MD PCP - General 04/16/[address] [place] [address] documented as of this encounter
--- OUTSIDE RECORDS SUMMARY | 2022-03-16 08:19 | XMS_ITS | Encounter Summary ---
:1945 Author Organization [facility] [place] [address] Care Team Providers Name Role Phone Lovely Vicente MD Primary Care Provider Reason for Visit Auth/Cert Specialty Diagnoses / Procedures Referred By Contact Refer red To Contact Diagnoses Critical lower limb ischemia CELLULITIS RT FOOT Procedures EMERGENCY Referral ID Status Reason Start Date Expiration Date Visits Requ ested Visits Authorized [id number] 1 1 Encounter Details Date Type Department Care Team Description 08/06/2017 Laboratory Appointment Lab at [facility] [place]schemia of foot [facility] [place] [address] Social History Tobacco Use Types Packs/Day [...] MD [facility] ER DR CARLYLE [place] [address] (Wo rk) 05/28/2022 Appointment Cardiology Zulma Dolan MD [facility] er Dr [place] [address] (Wo rk) 05/28/2022 Laboratory Appointment Lab 05/28/2022 Office Visit Cardiology Zulma Dolan MD [facility] [place] [address] Liz Pooel PA [facility] [place] [address] 06/10/2022 Office Visit Dermatology Laura Scherer MD [facility] ER [address] [place], [place] [address] (Wo rk) documented as of [...] Signature Prealbumin 19 (L) 20 - 40 [facility] mg[facility]dL [facility] Comment: Prealbumin levels are generally lower [...] Address City/State/[place] [address] (ABNORMAL) Basic Metabolic Panel (non-fasting) (08/06/2017 12:32 PM EST) athologist Signature Glucose Lvl 92 65 - 199 [facility] RYAN mg/dL [facility] Comment: Diabetes: >=200 mg/dL plus symp toms BUN 29 (H) 10 - 20 mg/dL [facility] LABORATORY Creatinine 1.33 0.80 - 1.50 mg/dL [place] [...] 16 (H) 5 - 15 mmol/L [facility]OR[facility]ORY Calcium 8.5 8.5 - 10.5 mg/dL [facility] LABORATORY Estimated GFR 53 (L) >=60 [facility] Comment: The reported eGFR should be multiplied b y 1.2 for patients. The MDRD is not an appropriate measure o f renal function for patients with body mass extremes or in patients with acute kidney failure. http://SimpleTherapy/DHnkdep http://SimpleTherapy/DHMCnkf Specimen Anatomical Collection Method Collection Time Receive d Time (Source) Location / / Volume Laterality Blood specimen 08/06/2017 12:32 8 1:15 (specimen) PM EST PM EST Resulting Agency Comment Spec In Lab Arik Clement MD CHEMISTRY ORDERABLES Performing Organization Address City/State/[place] [address] (ABNORMAL) Hemogram (08/06/2017 12:32 PM EST) Analysis Performed At Patho logist Time Signature WBC 11.8 (H) 4.0 - 9.5 [facility] x10(3)/[facility] LABORATORY RBC 3.49 (L) 4.58 - [facility] 5.54 [facility] x10(6)/[facility] LABORATORY Hemoglobin 9.9 (L) 13.7 - [facility] 16.5 gm/dL [facility] Hematocrit 32.0 (L) 40.5 - [facility] 48.5 % [facility] MCV 91.7 82.9 - [facility] 93.1 [facility] LABORATORY MCH 28.4 27.5 - [place] RYAN 32.1 pg [facility] MCHC 30.9 (L) 32.0 - [facility] 35.7 gm/dL [facility] Platelets 326 145 - 357 [facility] x10(3)/[facility] LABORATORY RDWSD 53.4 (H) 36.0 - [facility] 45.0 [facility] LABORATORY RDWCV 16.0 (H) 11.4 - [facility] 13.8 % [facility] MPV 9.1 7.6 - 12.9 [facility] LABORATORY nRBC % Auto 0.0 % [facility] LABORATORY nRBC Abs Auto 0.000 0.000 - [facility] 0.000 [facility] x10(3)/[facility] LABORATORY Specimen Anatomical Collection Method Collection Time Receive d Time (Source) Location / / Volume Laterality Blood specimen 08/06/2017 12:32 8 1:15 (specimen) PM EST PM EST Resulting Agency Comment Spec In Lab Arik Clement MD HEMATOLOGY ORDERABLES Performing Organization Address City/State/[place] [address] documented in this encounter Visit Diagnoses Diagnosis Ischemia of foot Unspecified circulatory system disorder documented in this encounter Care Teams Emergency Management System Director Relationship Specialty Start Date End Date Lovely Vicenet MD PCP - General 04/16/[address] [place] [address] documented as of this encounter
--- OUTSIDE RECORDS SUMMARY | 2022-03-16 08:19 | XMS_ITS | Encounter Summary ---
:1945 Author Organization [facility] [place] [address] Care Team Providers Name Role Phone Lovely Vicente MD Primary Care Provider Reason for Visit Reason Comments Pain Management Ankle Pain Toe Pain Encounter Details Date Type Department Care Team Description 07/30/2017 Office Visit Pain Management at [facility], Per ipheral neuropathy [place] DATABASE MANAGEMENT SPECIALIST due to ischemia [facility] [address] [place], [place], [place] [phone] Social History Tobacco Use Types Packs/Day Years [...] Soares APRN - 07/30/2017 1:45 PM EST [facility] [place] [address] Phone: PAIN MANAGEMENT NEW PATIENT / CONSULTATION NOTE DATE OF VISIT 07/30/2017 Patient Don Fatima 1945 REFERRING PROVIDER Lovely Vicente MD [address] [place] [address] PRIMARY CARE PROVIDER Lovely Vicente MD CHIEF [...] much relief PAST THERAPIES: Nothing MEDICATIONS The [place] Prescription Monitoring Program was checked and no [...] FACIAL NERVE MONITORING, SETUP performed by Manny cMknight MD at [facility] OR ??? [...] SNARE performed by Nohemi Jaimes MD at [facility] ENDOSCOPY ??? PRO ENDOSCOPY W/VIDEO-ASST VEIN [...] Lovely Vicente MD [address] [place] [id number]. Barbra Soares, MSN, COURT ORDERLY-BC, DATABASE MANAGEMENT SPECIALIST Nurse Practitioner Pain Management Center documented in this encounter Plan of Treatment Upcoming Encounters Date Type Specialty Care Team Description 03/26/2022 Office Visit Cardiology Vitaliy Nobles MD [facility] CARDIOLOGY [place], [place] [address] (Wo rk) 05/28/2022 Appointment Cardiology Zulma Dolan MD [facility] [place], [place] [address] (Wo rk) 05/28/2022 Laboratory Appointment Lab 05/28/2022 Office Visit Cardiology Zulma Dolan MD [facility] [place] [address] Liz Poole PA [facility] [place] [address] 06/10/2022 Office Visit Dermatology Laura Scherer MD [facility] DR [address] [place], [place] [address] (Wo rk) documented as of this encounter Visit Diagnoses Diagnosis 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
--- OUTSIDE RECORDS SUMMARY | 2022-03-16 08:19 | XMS_ITS | Encounter Summary ---
:1945 Author Organization [facility] [place] [address] Care Team Providers Name Role Phone Lovely Vicente MD Primary Care Provider Reason for Visit Auth/Cert Specialty Diagnoses / Procedures Referred By Contact Refer red To Contact Diagnoses Critical lower limb ischemia CELLULITIS RT FOOT Procedures EMERGENCY Referral ID Status Reason Start Date Expiration Date Visits Requ ested Visits Authorized [id number] 1 1 Encounter Details Date Type Department Care Team Description 08/04/2017 Hospital Encounter XRay at [facility] Danette Maxwell Incisional pain [address] [place] [address] Dr Gomes, ADMISSIONS ADVISOR [facility] [phone] CARDIOLOGY [place], [place] [address] Social History Tobacco Use [...] Nobles MD [facility] DR T[place] [place], [place] [address] (Wo rk) 05/28/2022 Appointment Cardiology Zulma Dolan MD [facility] [address] [place], [place] [address] (Wo rk) 05/28/2022 Laboratory Appointment Lab 05/28/2022 Office Visit Cardiology Zulma Dolan MD [facility] [place] [address] Liz Poole PA [facility] [place] [address] 06/10/2022 Office Visit Dermatology Laura Scherer MD [facility] ER DR [address]MAT [place], [place] [address] (Wo rk) documented as of [...] Daniele gutiérrez 08/04/2017 4:13 PM Danette Maxwell ADMISSIONS ADVISOR IMG DX ORDERABLES documented in this encounter Visit Diagnoses Diagnosis Incisional pain Disturbance of skin sensation documented in this encounter Care Teams Diffusion Furnace Operator Relationship Specialty Start Date End Date Loevly Vicente MD PCP - General 04/16/[address] [place] [address] documented as of this encounter
--- OUTSIDE RECORDS SUMMARY | 2022-03-16 08:19 | XMS_ITS | Encounter Summary ---
:1945 [place] [address] Care Team Providers Name Role Phone Lovely Vicente MD Primary Care Provider Encounter Details Date Type Department Care Team Description 08/05/2017 Notes Only Vascular Surgery at [facility] [place], [facility] [place] [address] VASCULAR SURGERY [phone] [place], [place] [address] (Wo rk) Social History Tobacco [...] MD [facility] DR TADEO [place], [place] [address] (Wo rk) 05/28/2022 Appointment Cardiology Zulma Dolan MD [facility] [place], [place] [address] (Wo rk) 05/28/2022 Laboratory Appointment Lab 05/28/2022 Office Visit Cardiology Zulma Dolan MD [facility] [place] [address] Liz Poole PA [facility] [place] [address] 06/10/2022 Office Visit Dermatology Laura Scherer MD [facility] DR [address] [place], [place] [address] (Wo rk) documented as of this encounter Visit Diagnoses Not on filedocumented in this encounter Care Teams Dinkey Mechanic Relationship Specialty Start Date End Date Lovely Vicente MD PCP - General 04/16/[address] [place] [address] documented as of this encounter
--- OUTSIDE RECORDS SUMMARY | 2022-03-16 08:19 | XMS_ITS | Encounter Summary ---
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 Patient [...] SETUP performed by Manny Mcknight MD at [facility] MAIN OR ??? PRO CABG, ARTERIAL, SINGLE N/A 07/07/2017 @CABG, USING ARTERIAL GRAFT;SINGLE ARTERIAL GRAFT (WRVU 33.75) performed by Yuna Retana MD at [facility] MAIN OR ??? PRO CABG, ARTERY-VEIN, TWO N/A 07/07/2017 @CABG, TWO VENOUS GRAFTS & ARTERIAL GRAFT (WRVU 7.93) performed by Yuan Retana MD at [facility] MAIN OR ??? PRO COLONOSCOPY, REMFlash MOCK, SNARE 01/16/2014 COLONOSCOPY, POLYPECTOMY, REMOVAL LESION BY SNARE performed by Nohemi Jaimes MD at [facility] ENDOSCOPY ??? PRO ENDOSCOPY W/VIDEO-ASST VEIN HARVEST, CABG Right 07/07/2017 ENDOSCOPIC HARVEST VEIN(S) FOR CABG (WRVU 0.31) performed by Yuan Retana MD at [facility] MAIN OR ??? 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 Hank Zhang Vascular Surgery, PGY2 Pager #[phone] Associated attestation - Arik Clement MD - [...] MD [facility] [address] TADEO [place], [place] [address] (Wo rk) 05/28/2022 Appointment Cardiology Zulma Dolan MD [facility] [place], [place] [address] (Wo rk) 05/28/2022 Laboratory Appointment Lab 05/28/2022 Office Visit Cardiology Zulma Dolan MD [facility] [place] [address] Liz Poole PA [facility] [place] [address] 06/10/2022 Office Visit Dermatology Laura Scherer MD [facility] DR TEJA GR-DERMAT [place], [place] [address] [...] Analysis Performed At [facility] Range Method Time Signature VB Text Department: Vascular Surgery Lab VASCUBASE Report Patient: [id number] (GREGORY FATIMA) CPT: 93999 ICD10: I82.541 Referring Physician: TAMIKO JIMÉNEZ ?? [...] Jiménez MD VASCULAR ORDERABLES Performing Organization Address City/[facility]/ZIP Code Phon e Number VASCUBASE POCT Glucose (07/29/2017 2:28 PM EST) P athologist Signature POC Glucose 128 65 - 199 [facility] mg/dL [facility] LABORATORY Comment: Supplemental ranges: <140 mg/dL before meals <180 mg/dL all other times of the day Specimen Anatomical Collection Method Collection Time Receive d Time (Source) Location / / Volume Laterality Blood specimen 07/29/2017 2:28 PM 018 2:28 (specimen) EST PM EST Tamiko Jiménez MD POINT OF CARE TEST ORDERABLE S Performing Organization Address [facility] [place] [address] (ABNORMAL) D-Dimer, Quantitative (07/29/2017 2:15 PM EST) [facility] Method Time Signature D-Dimer, Quant 1,699 (H) 0 - 500 [facility] FEU ng/ml [facility] Comment: The D-Dimer assay [...] Jiménez MD HEMATOLOGY ORDERABLES Performing Organization Address City/[facility] Phon e Number [address] (ABNORMAL) Differential, Automated (07/29/2017 2:15 PM EST) [facility] Method Time Signature Neutrophils % 82.5 % [facility] Neutr Abs (ANC) 10.21 (H) 1.70 - [facility] 6.10 [facility] x10(3)/[facility] LABORATORY Lymphocytes % 7.1 % [facility] Lymphocytes Abs 0.9 0.9 - 3.2 [facility] x10(3)/[facility] LABORATORY Monocytes % 6.5 % [facility] Monocyte Abs 0.8 0.3 - 0.9 [facility] x10(3)/[facility] LABORATORY Eosinophils % 2.7 % [facility] Eosinophils Abs 0.3 0.0 - 0.4 [facility] x10(3)/[facility] LABORATORY Basophils % 0.6 % [facility] Basophils Abs 0.1 0.0 - 0.1 [facility] x10(3)/[facility] LABORATORY Immature Gran % 0.60 % [...] Organization Address City/State/[place] [address] (ABNORMAL) Hemogram (07/29/2017 2:15 PM EST) Analysis Performed At Patho logist Time Signature WBC 12.4 (H) 4.0 - 9.5 [facility] x10(3)/[facility] LABORATORY RBC 4.17 (L) 4.58 - [facility] 5.54 [facility] x10(6)/[facility] LABORATORY Hemoglobin 12.1 (L) 13.7 - [place] DVAIS 16.5 gm/dL [facility] LABORATORY Hematocrit 38.1 (L) 40.5 - [place] DAVIS 48.5 % [facility] LABORATORY MCV 91.4 82.9 - [facility] RYAN 93.1 [facility] LABORATORY MCH 29.0 27.5 - [place] OLIVASCK 32.1 pg [facility] LABORATORY MCHC 31.8 (L) 32.0 - [place] DAVIS 35.7 gm/dL [facility] LABORATORY Platelets 204 145 - 357 [facility] x10(3)/[facility] LABORATORY RDWSD 50.5 (H) 36.0 - [facility] RYAN 45.0 [facility] LABORATORY RDWCV 15.3 (H) 11.4 - [facility] RYAN 13.8 % [facility] LABORATORY MPV 9.4 7.6 - 12.9 [facility] nRBC % Auto 0.0 % [facility] nRBC Abs Auto 0.000 0.000 - [place] RYAN 0.000 [facility] x10(3)/[facility] LABORATORY Specimen Anatomical Collection Method Collection Time Receive d Time (Source) Location / / Volume Laterality Blood specimen 07/29/2017 2:15 PM 018 2:36 (specimen) EST PM EST Resulting Agency Comment Spec In Lab Tamiko Jiménez MD HEMATOLOGY ORDERABLES Performing Organization Address City/State/[place] [address] (ABNORMAL) Prothrombin Time (07/29/2017 [...] Address City/State/[place] [address] Arterial Duplex Leg, Unil (07/29/2017 11:50 AM EST) Component Value Ref Test Analysis Performed At [facility] Range Method Time Signature VB Text Department: Vascular Surgery Lab VASCUBASE Report Patient: [id number] (GREGORY FATIMA) CPT: 83123 ICD10: Z09;I97.610 Referring Physician: TAMIKO JIMÉNEZ ?? [...] Analysis Performed At [facility] Range Method Time Signature VB Text Department: Vascular Surgery Lab VASCUBASE Report Patient: [id number] (GREGORY FATIMA) CPT: 07885 ICD10: I82.441 Referring Physician: TAMIKO JIMÉNEZ ?? [...] he calf. Notification: Marquis Pathak MD (pager #[phone]) was notif ied of the preliminary findings. [...] STAT documented in this encounter Care Teams Pen Or Pencil Assembly Machine Operator Relationship Specialty Start Date End Date Lovely Vicente MD PCP - General 04/16/[address] [place] [address] documented as of this encounter
--- OUTSIDE RECORDS SUMMARY | 2022-03-16 08:19 | XMS_ITS | Encounter Summary ---
:1945 Author Organization [facility] [place] [address] Care Team Providers Name Role Phone Lovely Vicente MD Primary Care Provider Reason for Visit Reason Comments Foot Ulcer WOUND CHECK Auth/Cert Specialty Diagnoses / Procedures Referred By Contact Refer red To Contact Diagnoses Critical lower limb ischemia CELLULITIS RT FOOT Procedures EMERGENCY Referral ID Status Reason Start Date Expiration Date Visits Requ ested Visits Authorized [id number] 1 1 Encounter Details Date Type Department Care Team Description 08/06/2017 [facility] [place] [facility] [address] [place], [place] VASCULAR SURGERY [id number] [place] [address] [phone] Social History Tobacco Use Types Packs/Day Years [...] Smith MD - 08/06/2017 1:00 PM EST [facility] staff: 1. RIGHT leg CLI [...] Nobles MD [facility] CARDIOLOGY [place], [place] [address] (Wo rk) 05/28/2022 Appointment Cardiology Zulma Dolan MD [facility] [place], [place] [address] (Wo rk) 05/28/2022 Laboratory Appointment Lab 05/28/2022 Office Visit Cardiology Zulma Dolan MD [facility] [place] [address] Liz Poole PA [facility] Dr Cardiology [place] [address] 06/10/2022 Office Visit Dermatology Laura Scherer MD [facility] DR [address]DERMAT [place], [place] 0[address] (Wo rk) documented as of this encounter Visit Diagnoses Diagnosis Critical lower limb ischemia Unspecified circulatory system disorder documented in this encounter Care Teams Die Engraving Supervisor Relationship Specialty Start Date End Date Lovely Vicente MD PCP - General 04/16/15 [facility] [address] [place] [address] documented as of this encounter
--- OUTSIDE RECORDS SUMMARY | 2022-03-16 08:19 | XMS_ITS | Encounter Summary ---
:1945 Author Organization [facility] [place] [address] Care Team Providers Name Role Phone Lovely Vicente MD Primary Care Provider Encounter Details Date Type Department Care Team Description 07/29/2017 Transcribe Orders Laboratory Lovely Vicente MD [address] [address] [place], [place] [address] (Mikayla alcaraz) Social History Tobacco Use Types [...] MD [facility] DR CARLYLE [place], [place] [address] (Wo rk) 05/28/2022 Appointment Cardiology Zulma Dolan MD [facility] [address] [place] [address] (Wo rk) 05/28/2022 Laboratory Appointment Lab 05/28/2022 Office Visit Cardiology Zulma Dolan MD [facility] [place] [address] Liz Poole PA [facility] [place] [address] 06/10/2022 Office Visit Dermatology Laura Scherer MD [facility] ER DR TEJA GR[address]DERMAT [place], [place] [address] (Wo rk) documented as of this encounter Visit Diagnoses Not on filedocumented in this encounter Care Teams Human Resources Benefits Assistant Relationship Specialty Start Date End Date Lovely Vicente MD PCP - General 04/16/[address] [place] [address] documented as of this encounter
--- OUTSIDE RECORDS SUMMARY | 2022-03-16 08:19 | XMS_ITS | Encounter Summary ---
:1945 [place] [address] Care Team Providers Name Role Phone Lovely Vicente MD Primary Care Provider Encounter Details Date Type Department Care Team Description 08/03/2017 Hospital Encounter Radiology [facility] [place], Tommy Mijares [facility] [place] [facility] [place] [facility] [place] [address] VASCULAR SURGERY [phone] [place], [place] [address] (Wo rk) Social History [...] [facility] DR TADEO [place], [place] [address] (Wo rk) 05/28/2022 Appointment Cardiology Zulma Dolan MD [facility] Dr [place], [place] [address] (Wo rk) 05/28/2022 Laboratory Appointment Lab 05/28/2022 Office Visit Cardiology Zulma Dolan MD [facility] [place] [address] Liz Poole PA [facility] [place] [address] 06/10/2022 Office Visit Dermatology Laura Scherer MD [facility] DR TEJA GR-DERMAT [place], [place] 0[address] (Wo rk) documented as of [...] Received Time / Laterality Volume Narrative [facility] - 08/03/2017 6:03 PM EST This exam is for storage only and is aut o-finalizing. Arik Clement MD IMG FILM LIBRARY ORDERABLES Performing Organization Address City/State/ZIP Code Phon e Number [place], [place] documented in this encounter Visit Diagnoses Diagnosis Pain Generalized pain documented in this encounter Care Teams Second Miller Relationship Specialty Start Date End Date Lovely Vicente MD PCP - General 04/16/[address] [place] [address] documented as of this encounter
--- OUTSIDE RECORDS SUMMARY | 2022-03-16 08:19 | XMS_ITS | Encounter Summary ---
:1945 Author Organization [facility] [place] [address] Care Team Providers Name Role Phone Lovely Vicente MD Primary Care Provider Reason for Visit Reason Comments Follow-up Encounter Details Date Type Department Care Team Description 07/29/2017 Office Visit Cardiac Surgery at [facility] Yuan Retana MD S/P CABG x [address] [facility] [place] [address] CARDIOTHORACIC SURGERY [phone] [place], [place] [address] (Wo rk) Social History Tobacco [...] evaluation by vascular surgery. Yuan Retana MD [phone] documented in this encounter Plan of Treatment Upcoming Encounters Date Type Specialty Care Team Description 03/26/2022 Office Visit Cardiology Vitaliy Nobles MD [facility] DR CARLYLE [place], [place] [address] (Wo rk) 05/28/2022 Appointment Cardiology Zulma Dolan MD [facility] Dr [place] 0[address] (Wo rk) 05/28/2022 Laboratory Appointment Lab 05/28/2022 Office Visit Zulma Garrison MD [facility] [place] [address] Liz Poole PA [facility] [place] [address] 06/10/2022 Office Visit Dermatology Laura Scherer MD [facility] ER DR TEJA GR-DERMAT [place], [place] [address] (Wo rk) documented as of this encounter Visit Diagnoses Diagnosis S/P CABG x 3 Postsurgical aortocoronary bypass status documented in this encounter Care Teams Therapy Tech Relationship Specialty Start Date End Date Lovely Vicente MD PCP - General 04/16/15 [facility] [address] [place] [address] documented as of this encounter
--- OUTSIDE RECORDS SUMMARY | 2022-03-16 08:19 | XMS_ITS | Encounter Summary ---
:1945 [place] [address] Care Team Providers Name Role Phone Lovely Vicente MD Primary Care Provider Encounter Details Date Type Department Care Team Description 08/04/2017 Orders Only Cardiac Surgery Makayla Wilson FELT FINISHER [facility] Jorge [facility] [place] [address] CARDIAC SURGERY [phone] [place], [place] [address] (Wo rk) Social History Tobacco [...] Nobles MD [facility] ER DR CARLYLE [place] 0[address] (Wo rk) 05/28/2022 Appointment Cardiology Zulma Dolan MD [facility] Dr [place], [place] [address] (Wo rk) 05/28/2022 Laboratory Appointment Lab 05/28/2022 Office Visit Cardiology Zulma Dolan MD [facility] [place] [address] Liz Poole PA [facility] [place] [address] 06/10/2022 Office Visit Dermatology Laura Scherer MD [facility] ER DR [address]-DERMAT [place], [place] 0[address] (Wo rk) documented as of this encounter Visit Diagnoses Not on filedocumented in this encounter Care Teams Supervisor Wood Crew Relationship Specialty Start Date End Date Lovely Vicente MD PCP - General 04/16/[address] [place] [address] documented as of this encounter
--- OUTSIDE RECORDS SUMMARY | 2022-03-16 08:19 | XMS_ITS | Encounter Summary ---
:1945 Author Organization [facility] [place] [address] Care Team Providers Name Role Phone Lovely Vicente MD Primary Care Provider Encounter Details Date Type Department Care Team Description 07/29/2017 Transcribe Orders Laboratory Lovely Vicente MD [address] [address] [place], [place] [address] (Mikayla alcaraz) Social History Tobacco Use Types [...] MD [facility] DR CARLYLE [place], [place] [address] (Wo rk) 05/28/2022 Appointment Cardiology Zulma Dolan MD [facility] Dr [place] 0[address] (Wo rk) 05/28/2022 Laboratory Appointment Lab 05/28/2022 Office Visit Cardiology Zulma Dolan MD [facility] [place] [address] [address] Po[address] PA [facility] [place] [address] 06/10/2022 Office Visit Dermatology Laura Scherer MD [facility] ER DR TEJA GR-DERMAT [place], [place] 0[address] (Wo rk) documented as of this encounter Visit Diagnoses Not on filedocumented in this encounter Care Teams Circus Train Supervisor Relationship Specialty Start Date End Date Lovely Vicente MD PCP - General 04/16/[address] [place] [address] documented as of this encounter
--- OUTSIDE RECORDS SUMMARY | 2022-03-16 08:19 | XMS_ITS | Encounter Summary ---
:1945 Author Organization [facility] [place] [address] Care Team Providers Name Role Phone Lovely Vicente MD Primary Care Provider Reason for Visit Reason Comments Deep Vein Thrombosis Auth/Cert Specialty Diagnoses / Procedures Referred By Contact Refer red To Contact Diagnoses Critical lower limb ischemia CELLULITIS RT FOOT Procedures EMERGENCY Referral ID Status Reason Start Date Expiration Date Visits Requ ested Visits Authorized [id number] 1 1 Encounter Details Date Type Department Care Team Description 08/04/2017 Office Visit Vascular Surgery at [facility] Clement Cr itical lower limb [facility] [place] On [facility] [address] [place] VASCULAR SURGERY [id number] [place] [address] [phone] Social History Tobacco Use Types Packs/Day Years [...] was discharged on Coumadin. ??He [place] [facility] [place] with mottled toes on the [...] 03/26/2022 Office Visit Cardiology Vitaliy Nobles MD [facility] MEDICAL [facility] ER INA [place] [address] (Mikayla alcaraz) 05/28/2022 Appointment Cardiology Zulma Dolan MD [facility] er INA [place] [address] (Mikayla alcaraz) 05/28/2022 Laboratory Appointment Lab 05/28/2022 Office Visit Cardiology Zulma Dolan MD [facility] [place] [address] [facility] [place] [address] 06/10/2022 Office Visit Dermatology Laura Scherer MD [facility] ER DR [address]-DERMAT [place], [place] [address] (Wo rk) documented as of this encounter Visit Diagnoses Diagnosis Critical lower limb ischemia Unspecified circulatory system disorder documented in this encounter Care Teams Tobacco Stemmer Relationship Specialty Start Date End Date Lovely Vicente MD PCP - General 04/16/[address] [place] [address] documented as of this encounter
--- OUTSIDE RECORDS SUMMARY | 2022-03-16 08:19 | XMS_ITS | Encounter Summary ---
:1945 [place] [address] Care Team Providers Name Role Phone Lovely Vicente MD Primary Care Provider Encounter Details Date Type Department Care Team Description 08/04/2017 Notes Only Cardiac Surgery Makayla Wilson CANOE BUILDER [facility] [place] [address] CARDIAC SURGERY [phone] [place], [place] [address] (Wo rk) Social History Tobacco [...] Vitaliy Nobles MD [facility] DR TADE[address] [place], [place] [address] (Wo rk) 05/28/2022 Appointment Cardiology Zulma Dolan MD [facility] [place], [place] [address] (Wo rk) 05/28/2022 Laboratory Appointment Lab 05/28/2022 Office Visit Cardiology Zulma Dolan MD [facility] [place] [address] Liz Poole PA [facility] [place] [address] 06/10/2022 Office Visit Dermatology Laura Scherer MD [facility] DR [address]-DERMAT [place], [place] [address] (Wo rk) documented as of this encounter Visit Diagnoses Not on filedocumented in this encounter Care Teams Applications Engineer Relationship Specialty Start Date End Date Lovely Vicente MD PCP - General 04/16/[address] [place] [address] documented as of this encounter
--- OUTSIDE RECORDS SUMMARY | 2022-03-16 08:19 | XMS_ITS | Encounter Summary ---
:1945 [place] [address] Care Team Providers Name Role Phone Lovely Vicente MD Primary Care Provider Reason for Visit Auth/Cert Specialty Diagnoses / Procedures Referred By Contact Refer red To Contact Diagnoses Critical lower limb ischemia CELLULITIS RT FOOT Procedures EMERGENCY Referral ID Status Reason Start Date Expiration Date Visits Requ ested Visits Authorized [id number] 1 1 Encounter Details Date Type Department Care Team Description 08/09/2017 Anesthesia Event Main Operating Room Daniele Lizama MD [facility] [place] [address] [facility] Rob Jones MD [facility] [place] [address] [place] [address] Anesthesia Record Procedure Summary Procedure Name [...] Knowles, Dory arm), right; VAMSI Rios, RN otny-ebs-fhdhmq catheter system; 20 gauge; 08/16/17; 1047 PIV 07/29/17; 1413; median 07/29/17 1413 by 08/16/17 1047 by cubital vein (antecubital Magdalene Hickey Williams, Dory fossa), left; VAMSI Wyatt, RN seda-kvo-pulnkd catheter system; 20 gauge; 08/16/17; 1047 PIV 08/06/17; 1742; cephalic 08/06/17 1742 by 0920 by vein (lateral side of Taylor Laureano Danah y, Caitlyn C, arm), right; VAMSI BONNER behz-wyf-hnpyab catheter system; 22 gauge, 1 in length; Eliseo LAUREANO RN VAS; distraction, intradermal injection, tolerated well, appears comfortable; 0; 08/16/17; 0920 Wound 08/07/17; 1335; knee; 08/07/17 1335 by 08/16/17 1047 by laceration; wound occured Barbara Albert iams, Dory CHIEF HUMAN RESOURCES OFFICER; 08/16/17; 1047 VAMSI Alonzo, RN PIV 08/07/17; 1734; cephalic 08/07/17 1734 by 1047 by vein (lateral side of Kendrick, Carlos W, Willia ms, Dory arm), left; MARCIE Wyatt RN eyqn-rsx-thedst catheter system; 22 gauge; distraction, intradermal injection, [...] Santillan MD - 08/09/2017 9:01 AM EST 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 Nerve [...] 33.75) performed by Yuan Retana MD at [facility] MAIN OR ??? PRO CABG, ARTERY-VEIN, TWO N/A 07/07/2017 @CABG, TWO VENOUS GRAFTS & ARTERIAL GRAFT (WRVU 7.93) performed by Yuan Retana MD at [facility] MAIN OR ??? PRO COLONOSCOPY, REMV LESN, SNARE 01/16/2014 COLONOSCOPY, POLYPECTOMY, REMOVAL LESION BY SNARE performed by Nohemi Jaimes MD at [facility] ENDOSCOPY ??? PRO ENDOSCOPY W/VIDEO-ASST VEIN HARVEST, CABG Right 07/07/2017 ENDOSCOPIC HARVEST VEIN(S) FOR CABG (WRVU 0.31) performed by Yuan Retana MD at [facility] MAIN OR ??? PRO THYROIDECTOMY 03/28/2013 THYROIDECTOMY, TOTAL OR COMPLETE performed by Manny Mcknight MD at [facility] MAIN OR Social History Substance [...] adequate IV access. Brody Santillan MD PGY-2, Teacher [employer] Pager #[phone] Anesthesiology Staff (Dewhirst): Pre-op summary note as [...] MD [facility] [address] [place], [place] [address] (Wo rk) 05/28/2022 Appointment Cardiology Zulma Dolan MD [facility] [place], [place] [address] (Wo rk) 05/28/2022 Laboratory Appointment Lab 05/28/2022 Office Visit Cardiology Zulma Dolan MD [facility] [place] [address] Liz Poole PA [facility] [place] [address] 06/10/2022 Office Visit Dermatology Laura Scherer MD [facility] [address] [place], [place] [address] (Wo rk) documented as of [...] Length: 10 cm Gauge: 21 Needle Type: K-nvqor-vgpwc Medication injection made in crementally with aspirations. [...] Procedure) documented in this encounter Care Teams Rn First Assistant Relationship Specialty Start Date End Date Lovely Vicente MD PCP - General 04/16/[address] [place] [address] [address] [place] [address] documented as of this encounter
--- OUTSIDE RECORDS SUMMARY | 2022-03-16 08:19 | XMS_ITS | Encounter Summary ---
:1945 Author Organization [facility] Address [facility] [place] [address] Care Team Providers Name Role Phone Lovely Vicente MD Primary Care Provider Reason for Visit Auth/Cert Specialty Diagnoses / Procedures Referred By Contact Refer red To Contact Diagnoses Critical lower limb ischemia CELLULITIS RT FOOT Procedures EMERGENCY Referral ID Status Reason Start Date Expiration Date Visits Requ ested Visits Authorized [id number] 1 1 Encounter Details Date Type Department Care Team Description 08/04/2017 Laboratory Lab 3L [place] Cardiomyopathy, unspecified type; Appointment [facility] Systolic congestive heart failure, unspecified congestive heart failure chronicity; Hospital Coronary artery rupture; [facility] Ischemic cardiomyopathy; Drive Atherosclerosis of [place] co ronary artery, angina presence unspecified, unspecified whether [place] or transplanted heart; [place], [place] Essential hyper tension, malignant; [id number] 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, unspecified terminal superintendent insulin use status [phone] Social History Tobacco Use Types Packs/Day Years [...] Vitaliy Nobles MD [facility] CARDIOLOGY [place], [place] 0[address] (Wo rk) 05/28/2022 Appointment Cardiology Zulma Dolan MD [facility] [place], [place] 0[address] (Wo rk) 05/28/2022 Laboratory Appointment Lab 05/28/2022 Office Visit Cardiology Zulma Dolan MD [facility] [place] [address] Liz Poole PA [facility] [place] [address] 06/10/2022 Office Visit Dermatology Laura Scherer MD [facility] [address] [place], [place] [address] ( rk) documented as of this encounter Procedures Procedure Name Priority Date/Time Associated Diagnosis Comme nts HEMOGRAM Routine 08/04/2017 12:55 Essential Results for this PM EST hypertension, procedure are in malignant the results section. PROTHROMBIN TIME Routine 08/04/2017 12:55 Coronary artery Resu lts for this PM EST rupture procedure are in Ischemic the results cardiomyopathy section. Atherosclerosis of [place] coronary artery, angina presence unspecified, unspecified whether [place] or transplanted heart URIC ACID Routine 08/04/2017 [...] with the results diabetic section. nephropathy, unspecified terminal superintendent insulin use status Essential hypertension, malignant COMPREHENSIVE Routine 08/04/2017 12:55 Essential Results fo r this METABOLIC PANEL PM EST hypertension, procedure a re in (NON-FASTING) malignant the results section. documented in this encounter Results Uric acid (08/04/2017 12:55 PM EST) P athologist Signature Uric Acid 7.1 3.5 - 8.5 [facility] mg/dL [facility] Specimen Anatomical Collection Method Collection Time Receive d Time (Source) Location / / Volume Laterality Blood specimen 08/04/2017 12:55 8 1:01 (specimen) PM EST PM EST Resulting Agency Comment Spec In Lab Lovely Vicente MD CHEMISTRY ORDERABLES Performing Organization Address City/State/[place] [address] (ABNORMAL) Hemogram (08/04/2017 12:55 PM EST) Analysis Performed At Patho logist Time Signature WBC 15.8 (H) 4.0 - 9.5 [place] [facility] x10(3)/[facility] LABORATORY RBC 3.48 (L) 4.58 - [facility] R[facility]AN 5.54 [facility] x10(6)/[facility] LABORATORY Hemoglobin 9.9 (L) 13.7 - [place] [facility] 16.5 gm/dL [facility] Hematocrit 31.4 (L) 40.5 - [place] [facility] 48.5 % [facility] MCV 90.2 82.9 - [facility] 93.[address] [facility] LABORATORY MCH 28.4 27.5 - [place] [facility] 32.1 pg [facility] MCHC 31.5 (L) 32.0 - [place] [facility] 35.7 gm/dL [facility] Platelets 310 145 - 357 [facility] x10(3)/[facility] LABORATORY RDWSD 51.8 (H) 36.0 - [facility] [employer] 45.[address] [facility] LABORATORY RDWCV 15.8 (H) 11.4 - [place] [facility] 13.8 % [facility] LABORATORY MPV 8.9 7.6 - 12.9 [facility] LABORATORY nRBC % Auto 0.0 % [facility] LABOR[facility] nRBC Abs Auto 0.000 0.000 - [facility] [employer] 0.000 [facility] x10(3)/[facility] LABORATORY Specimen Anatomical Collection Method Collection Time Receive d Time (Source) Location / / Volume Laterality Blood specimen 08/04/2017 12:55 8 1:01 (specimen) PM EST PM EST Resulting Agency Comment Spec In Lab Lovely Vicente MD HEMATOLOGY ORDERABLES Performing Organization Address City/State/[place] [address] (ABNORMAL) Comprehensive metabolic panel (non-fasting) (08/04/2017 12:55 PM EST) P athologist Signature Glucose Lvl 208 (H) 65 - 199 [facility] mg/dL [facility] LABORATORY [...] Estimated GFR 43 (L) >=60 [place] [facility] LABORATORY Comment: The reported eGFR should be multiplied b y 1.2 for patients. The MDRD is not an appropriate measure o f renal function for patients with body mass extremes or in patients with acute kidney failure. http://Casagem/DHnkdep http://Casagem/DHMCnkf Specimen Anatomical Collection Method Collection Time Receive d Time (Source) Location / / Volume Laterality Blood specimen 08/04/2017 12:55 8 1:01 (specimen) PM EST PM EST Resulting Agency Comment Spec In Lab Lovely Vicente MD CHEMISTRY ORDERABLES Performing Organization Address City/State/ZIP Code Phon e Number [place] [id number] (ABNORMAL) Hemoglobin A1c (08/04/2017 [...] S67-82 Est Avg Gluc See note mg/dL [facility] Comment: Estimated Average Glucose not [...] with hemoglobinopathies. Additional resources are available on [facility] ADA website. Macario HAMMOND, Ruthann J, Deysi R, et al. ??Tr anslating the A1C assay into estimated average glucose values. ??Diabetes Care 2008:31(8):7727-8240. Specimen Anatomical Collection Method Collection Time Receive d Time (Source) Location / / Volume Laterality Blood specimen 08/04/2017 12:55 8 1:01 (specimen) PM EST PM EST Resulting Agency Comment Spec In Lab Lovely Vicente MD CHEMISTRY ORDERABLES Performing Organization Address City/State/[place] [address] (ABNORMAL) Prothrombin Time (08/04/2017 [...] [place] [address] (ABNORMAL) pro-Brain Natriuretic Peptide (08/04/2017 12:55 PM EST) P athologist Signature ProBNP 3,133 (H) <=125 [facility] pg[facility]mL [facility]ORY [...] chronic ischemi c heart disease Atherosclerosis of [place] coronary arter y, angina presence unspecified, unspecified whether [place] or transplanted heart Essential hypertension, malignant Diabetes mellitus due to underlying cond ition with diabetic nephropathy, unspecified terminal superintendent insulin use status documented in this encounter Care Teams Oncology Navigator Relationship Specialty Start Date End Date Lovely Vicente MD PCP - General 04/16/[address] [place] [address] documented as of this encounter
--- OUTSIDE RECORDS SUMMARY | 2022-03-16 08:19 | XMS_ITS | Encounter Summary ---
:1945 Author Organization [facility] [place] [address] Care Team Providers Name Role Phone Lovely Vicente MD Primary Care Provider Reason for Visit Auth/Cert Specialty Diagnoses / Procedures Referred By Contact Refer red To Contact Diagnoses Critical lower limb ischemia CELLULITIS RT FOOT Procedures EMERGENCY Referral ID Status Reason Start Date Expiration Date Visits Requ ested Visits Authorized [id number] 1 1 Encounter Details Date Type Department Care Team Description 08/06/2017 Hospital En[facility] [place] [address] Social History Tobacco Use Types Packs/Day [...] Nobles MD [facility] CARDIOLOGY [place], [place] [address] (Wo rk) 05/28/2022 Appointment Cardiology Zulma Dolan MD [facility] [address] [place], [place] [address] (Wo rk) 05/28/2022 Laboratory Appointment Lab 05/28/2022 Office Visit Cardiology Zulam Dolan MD [facility] [place] [address] Liz Poole PA [facility] [place] [address] 06/10/2022 Office Visit Dermatology Laura Scherer MD [facility] [address]DERMAT [facility] [place], [place] [address] (Wo rk) documented as of this encounter Visit Diagnoses Not on filedocumented in this encounter Care Teams Production Grip Relationship Specialty Start Date End Date Lovely Vicente MD PCP - General 04/16/[address] [place] [address] documented as of this encounter
--- OUTSIDE RECORDS SUMMARY | 2022-03-16 08:19 | XMS_ITS | Encounter Summary ---
:1945 Author Organization [facility] [place] [address] Care Team Providers Name Role Phone Lovely Vicente MD Primary Care Provider Encounter Details Date Type Department Care Team Description 08/04/2017 Notes Only Cardiac Surgery Makayla Wilson APRN [facility] [place] [address] CARDIAC SURGERY [phone] [place] [id number] (Wo rk) Social History Tobacco Use Types [...] Vitaliy Nobles MD [facility] CARDIOLOGY [place], [place] [address] (Wo rk) 05/28/2022 Appointment Cardiology Zulma Dolan MD [facility] [place], [place] [address] (Wo rk) 05/28/2022 Laboratory Appointment Lab 05/28/2022 Office Visit Cardiology Zulma Dolan MD [facility] [place] [address] Liz Poole PA [facility] [place] [address] 06/10/2022 Office Visit Dermatology Laura Scherer MD [facility] DR [address] [place], [place] [address] (Wo rk) documented as of this encounter Visit Diagnoses Not on filedocumented in this encounter Care Teams Gelatin Powder Mixer Relationship Specialty Start Date End Date Lovely Vicente MD PCP - General 04/16/15 [facility] [address] [place] [address] documented as of this encounter
--- OUTSIDE RECORDS SUMMARY | 2022-03-16 08:19 | XMS_ITS | Encounter Summary ---
:1945 [place] [address] Care Team Providers Name Role Phone Lovely Vicente MD Primary Care Provider Encounter Details Date Type Department Care Team Description 08/04/2017 Notes Only Pain Management at Barbra Bruno, STACIE [facility] [place] [address] [place] [address] [phone] (Wo rk) Social History Tobacco Use Types [...] bid) at this time. Barbra Soares, MSN, STORYBOARD ARTIST-BC, [facility] documented in this encounter Plan of Treatment Upcoming Encounters Date Type Specialty Care Team Description 03/26/2022 Office Visit Cardiology Vitaliy Nobles MD [facility] [address] [place], [place] [address] (Wo rk) 05/28/2022 Appointment Cardiology Zulma Dolan MD [facility] [place], [place] [address] (Wo rk) 05/28/2022 Laboratory Appointment Lab 05/28/2022 Office Visit Cardiology Zulma Dolan MD [facility] [place] [address] Liz Poole PA [facility] [place] [address] 06/10/2022 Office Visit Dermatology Laura Scherer MD [facility] [address] [place], [place] [address] (Wo rk) documented as of this encounter Visit Diagnoses Not on filedocumented in this encounter Care Teams Loan Representative Relationship Specialty Start Date End Date Lovely Vicente MD PCP - General 04/16/[address] [place] [address] documented as of this encounter
--- OUTSIDE RECORDS SUMMARY | 2022-03-16 08:20 | XMS_ITS | Encounter Summary ---
:1945 [place] [address] Care Team Providers Name Role Phone Lovely Vicente MD Primary Care Provider Reason for Visit Reason Comments Hospital Transfer cold foot post CABG Auth/Cert Specialty Diagnoses / Procedures Referred By Contact Refer red To Contact Diagnoses Critical lower limb ischemia Procedures NAYE IPI Referral ID Status Reason Start Date Expiration Date Visits Requ ested Visits Authorized [id number] 1 1 Encounter Details Date Type Department Care Team Description 07/20/2017 Hospital Encounter 4 Herminia Ibarra MD [facility] [place] [address] Critical lower limb [facility] Arik Clement MD [facility] [address] [place] [address] Social History Tobacco Use Types Packs/Day Years [...] home. Important Studies and Lab Data: Labs: [facility] Lab Results Component Value Date INR 1.5 [...] For any problems or questions please call [phone] ZELDA Smith, formula maker Nurse Clinician For issues on weeknights after 5pm and weekends please call [phone] and ask for the Vascular Fellow labor relations teacher. General Instructions None Future Appointments and Orders Future Appointments Provider Department Dept Phone 08/04/2017 1:00 PM Daniele Mooney [place] [facility] [place] [phone] 08/04/2017 2:15 PM Arik Clement MD V[facility] Surgery [facility] [place] [phone] 09/07/2017 3:00 PM MAYRA CHACON Lab [facility] [phone] 09/07/2017 4:00 PM Luz Prescott MD Endocrinology at [place] [phone] Future Orders Complete By Expires Arterial Duplex Leg, Unil [VAS32 Custom] 07/27/2017 (Approximate) 01/26/2018 Process Instructions: There is no in-house vascular lab animal technologist available on weeknights (5pm-8am), weekends, or holidays. IF THIS IS A REQUEST FOR AN EMERGENT STUDY DURING THOSE HOURS, please have the senior provider responsible for the patient page the Vascular Surgery Fellow/Senior Resident labor relations teacher to discuss options. Scheduling Instructions: Questions: Indication for study/signs & symptoms: Right femoral PSA s/p cardiac cath Question to be answered: bloodflow to PSA Laterality: Right Is there a RIGHT LOWER EXTREMITY graft?: No Lower limb right segments: Common Femoral Is there a stent?: No At which location will this be performed?: [place] Referral to Home Health - at DISCHARGE [LOG6140 CPT(R)] As directed Process Instructions: Scheduling Instructions: Comments: DOCUMENTATION FOR VNA SERVICES (INCLUDING THOSE PATIENTS WITH MEDICARE COVERAGE REQUIRING HOME VNA SERVICES AND/OR HOSPICE SERVICES) PATIENT'S LOCATION: Grgeory Fatima [address] [place] [address] [place] [id number] (home) Cell: Telephone Information: Screw Machine Operator's Name: self In discussion with the attending physician, it is certified that this patient is under their care and that they, or a Nurse Practitioner,Clinical Nurse specialist or Physician Human Resources Hr Representative who is working directly with them, had [...] [facility] ([facility] [place] [facility]-is in [place] PHONE: [phone] FAX: [phone] Start of care: 24- 48 hours FOR [...] patient'sPCP: Lovely Vicente MD [address] [facility] [place] / [place] [address] All VNA agencies which cover the area [...] For any problems or questions please call [phone] ZELDA Smith, formula maker Nurse Clinician For issues on weeknights after 5pm and weekends please call [phone] and ask for the Vascular Fellow labor relations teacher. documented in this encounter Medications at [...] RN - 07/20/2017 2:53 PM EST The patient/inside sales account representative has been provided a list of Home Health Agencies/DME vendors which serve their preferred geographic area. A letter describing our affiliations was reviewed with them and theywere educated about their right to choose where referrals are placed. Patient requests referral to [facility]. PHONE: [phone] FAX: [phone]. Expected date of discharge: 07/20/2017 . Referral routed to the Dispatcher Automobile Rental for matching with agency/vendor and to provide any required information. Naty Pulliam RN - 07/20/2017 11:37 AM EST The patient/inside sales account representative has been provided a list of Home Health Agencies/DME vendors which serve their preferred geographic area. A letter describing our affiliations was reviewed with them and theywere educated about their right to choose where referrals are placed. Patient requests referral to [facility] ([facility] [place] [facility]- is in [place] [facility] PHONE: [phone] FAX: [phone]. Expected date of discharge: 07/20/2017 . Referral routed to the Dispatcher [employer] Rental for matching with agency/vendor and to provide any required information. Katina Pulliam RNdrill presser Janneth Lee MD - 07/20/2017 7:29 AM [...] [facility] ENDOSCOPY ??? PRO ENDOSCOPY W/VIDEO-ASST VEIN HARVEST, CABG Right 07/07/2017 ENDOSCOPIC HARVEST VEIN(S) FOR CABG (WRVU 0.31) performed by Yuan Retana MD at [facility] MAIN OR ??? PRO THYROIDECTOMY 03/28/2013 THYROIDECTOMY, TOTAL OR COMPLETE performed by Manny Mcknight MD at [facility] MAIN OR Functional Status/Social Hx: [...] -ISS -pain control Discussed with Vascular Fellow labor relations teacher. Chris Valadez MD PGY2 Pager [phone] documented in this encounter ED Notes Annita Reaves MD - 07/20/2017 3:15 PM EST Emergency Department Gregory Fatima is a 72 y.o. 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 History of Present Illness [...] 30 Days: [facility] 07/05/17 Anticipated Length Of Stay (If known): [...] Health/Prescription Coverage: Primary Insurance: MEDICARE Secondary Insurance: [employer] [facility] Prescription Coverage: See above Preferred Pharmacy: [facility] Other: N/A Primary Care Provider: Lovely Vicente MD [phone] Patient/Caregiver Goals of Treatment: Patient plans to return home when medically ready Potential Needs for Transition of Care: Rehab/SNF: N/A Home Health: [facility] ([facility] [place] [facility]-is in [place]) PHONE: [phone] FAX: [phone] DME: N/A Dialysis: N/A Community Resources: N/A Transportation: Patient family will transport Other: N/A Anticipated Barriers to Discharge/Special Considerations: None Plan: Patient plans to return home with home health services when medically ready A member of the Care Management team will continue to monitor progress, follow for continuity of care and assist with transition of care planning. Naty Pulliam, RN Pager: [phone] ED Triage - Rayna Weir RN - 07/20/2017 12:28 AM EST Pt transferred from [place] for blue right foot and painful toes. [...] Nobles MD [facility] [address] [place] [address] (Wo rk) 05/28/2022 Appointment Cardiology Zulma Dolan MD [facility] [address] [place] [address] (Wo rk) 05/28/2022 Laboratory Appointment Lab 05/28/2022 Office Visit Cardiology Zulma Dolan [place] [facility] [place] [address] Liz Poole PA [facility] [place] [address] 06/10/2022 Office Visit Dermatology Laura Scherer MD [facility] [address] [place] [address] (Wo rk) documented as of this encounter Procedures Procedure Name Priority Date/Time Associated Comments Diagnosis ENTRY LEVEL PROGRAMMER SCAN 09/02/2017 12:00 Res ults for this [...] TO LAB EST procedure are i n ([facility]/CGP) the results section. APTT STAT 07/20/2017 2:25 AM Results f or this EST procedure are i n the results section. PROTHROMBIN TIME STAT 07/20/2017 2:25 AM Resul ts for this EST procedure are i n the results section. BASIC METABOLIC PANEL STAT 07/20/2017 2:25 AM Results for this (NON-FASTING) EST procedure are in the results section. documented in this encounter Results SCAN DOC: ENTRY LEVEL PROGRAMMER (09/02/2017 12:00 AM EST) Narrative 09/02/2017 12:00 AM EST This result has an attachment that is no t available. Ordered by an unspecified provider. Scanning Provider MEDIA MGR SCAN EXT ORDR/RSLT POCT Glucose (07/20/2017 12:04 PM EST) P athologist Signature POC Glucose 189 65 - 199 [facility] mg/dL [facility] Comment: Supplemental ranges: <140 mg/dL before meals <180 mg/dL all other times of the day Specimen Anatomical Collection Method Collection Time Receive d Time (Source) Location / / Volume Laterality Blood specimen 07/20/2017 12:04 7 (specimen) PM EST 12:04 PM EST Arik Clement MD POINT OF CARE TEST ORDERABLE S Performing Organization Address City/State/[place] [address] (ABNORMAL) Differential, Automated (07/20/2017 10:34 AM EST) Patholo gist Method Time Signature Neutrophils % 84.3 % [facility] Neutr Abs (ANC) 14.27 (H) 1.70 - [facility] 6.10 [facility] x10(3)/[facility] LABORATORY Lymphocytes % 5.6 % [facility] Lymphocytes Abs 1.0 0.9 - 3.2 [facility] x10(3)/[facility] LABORATORY Monocytes % 6.1 % [facility] Monocyte Abs 1.0 (H) 0.3 - 0.9 [facility] x10(3)/[facility] LABORATORY Eosinophils % 2.4 % [facility] Eosinophils Abs 0.4 0.0 - 0.4 [facility] x10(3)/[facility] LABORATORY Basophils % 0.5 % [facility] Basophils Abs 0.1 0.0 - 0.1 [facility] x10(3)/[facility] LABORATORY Immature Gran % 1.10 % [facility] Comment: Immature granulocytes(IG's)percentage an d absolute count will include metamyelocytes, myelocytes, and promyelo cytes. Blood smears from CBCs yielding IG's will be scanned manually for concor danhaley. If this scan disagrees with the automated IG or if promyelocytes are not ed, a manual differential will be performed. Melisa Gran Abs 0.19 (H) 0.00 - 0.04 x10(3)/[facility] LABORATORY Specimen Anatomical Collection Method Collection Time Receive d Time (Source) Location / / Volume Laterality Blood specimen 07/20/2017 10:34 7 (specimen) AM EST 10:39 AM EST Resulting Agency Comment Spec In Lab Arik Clement MD HEMATOLOGY ORDERABLES Performing Organization Address City/State/[place] [address] (ABNORMAL) Hemogram (07/20/2017 10:34 AM EST) Analysis Performed At Patho logist Time Signature WBC 17.0 (H) 4.0 - 9.5 [facility] x10(3)/[facility] LABORATORY RBC 3.70 (L) 4.58 - [facility] 5.54 [facility] x10(6)/[facility] LABORATORY Hemoglobin 10.8 (L) 13.7 - [facility] 16.5 gm/dL [facility] Hematocrit 33.4 (L) 40.5 - [facility] 48.5 % [facility] MCV 90.3 82.9 - [facility] 93.1 [facility] LABORATORY MCH 29.2 27.5 - [facility] 32.1 pg [facility] MCHC 32.3 32.0 - [facility] 35.7 gm/dL [facility] Platelets 211 145 - 357 [facility] x10(3)/[facility] LABORATORY RDWSD 49.1 (H) 36.0 - [facility] 45.0 [facility] LABORATORY RDWCV 14.7 (H) 11.4 - [facility] 13.8 % [facility] MPV 9.2 7.6 - 12.9 [facility] LABORATORY nRBC % Auto 0.0 % [facility] nRBC Abs Auto 0.000 0.000 - [facility] 0.000 [facility] x10(3)/[facility] LABORATORY Specimen Anatomical Collection Method Collection Time Receive d Time (Source) Location / / Volume Laterality Blood specimen 07/20/2017 10:34 7 (specimen) AM EST 10:39 AM EST Resulting Agency Comment Spec In Lab Arik Clement MD HEMATOLOGY ORDERABLES Performing Organization Address City/[facility]/ZIP [place] [address] (ABNORMAL) APTT (07/20/2017 10:34 AM EST) P athologist Signature PTT 79 (H) 25 - 35 sec [facility] [...] Clement MD HEMATOLOGY ORDERABLES Performing Organization Address City/[facility]/ZIP Code Phon e Number [address] POCT Glucose (07/20/2017 7:41 AM EST) P athologist Signature POC Glucose 174 65 - 199 [facility] mg/dL [facility] Comment: Supplemental ranges: <140 mg/dL before meals <180 mg/dL all other times of the day Specimen Anatomical Collection Method Collection Time Receive d Time (Source) Location / / Volume Laterality Blood specimen 07/20/2017 7:41 AM 017 7:41 (specimen) EST AM EST Arik Clement MD POINT OF CARE TEST ORDERABLE S Performing Organization Address City/[facility]/ZIP Code Phon e Number [address] JULIAN, legs, multiple levels (07/20/2017 7:33 AM EST) Component Value Ref Test Analysis Performed At Patholo gist Range Method Time Signature VB Text Department: Vascular Surgery Lab VASCUBASE Report Patient: [id number] (GREGORY FATIMA) CPT: 79360 ICD10: I75.021;I99.8 Referring Physician: ARIK CLEMENT ?? [...] Test Analysis Performed At [facility] Range Method Time Signature VB Text Department: Vascular Surgery Lab VASCUBASE Report Patient: [id number] (GREGORY FATIMA) CPT: 18876 ICD10: I97.610;I99.8 Referring Physician: ARIK CLEMENT ?? [...] Signature POC Glucose 199 65 - 199 [facility] mg/dL [facility] Comment: Supplemental ranges: <140 mg/dL before meals <180 mg/dL all other times of the day Specimen Anatomical Collection Method Collection Time Receive d Time (Source) Location / / Volume Laterality Blood specimen 07/20/2017 3:41 AM 017 3:41 (specimen) EST AM EST Arik Clement MD POINT OF CARE TEST ORDERABLE S Performing Organization Address City/[facility]/[place] [address] Lactate, whole blood, send to lab ([place]eb/CGP) (07/20/2017 2:25 AM EST) P athologist Signature Lactate WB 2.0 0.5 - 2.2 [facility] mmol/L [facility] Specimen Anatomical Collection Method Collection Time Receive d Time (Source) Location / / Volume Laterality Blood specimen Venous Draw / 07/20/2017 2:25 AM 2016 2:37 (specimen) Unknown EST AM EST Resulting Agency Comment Spec In Lab Zulma Samuel MD CHEMISTRY ORDERABLES Performing Organization Address [facility]/[place] [address] (ABNORMAL) APTT (07/20/2017 2:25 AM EST) P athologist Signature PTT 36 (H) 25 - 35 sec [facility] [...] Reaves MD HEMATOLOGY ORDERABLES Performing Organization Address City/[facility]/[place] [address] (ABNORMAL) Prothrombin Time (07/20/2017 2:25 AM EST) P athologist Signature PT 17.7 (H) 11.8 - 14.0 [facility] LABORATORY INR 1.5 (H) 0.9 - 1.1 [facility] [...] Organization Address City/State/[place] [address] (ABNORMAL) Basic Metabolic Panel (non-fasting) (07/20/2017 2:25 AM EST) athologist Signature Glucose Lvl 187 65 - 199 [facility] mg/dL [facility] Comment: Diabetes: >=200 mg/dL plus symp toms BUN 35 (H) 10 - 20 mg/dL [facility]ORY Creatinine 1.51 (H) 0.80 - 1.50 mg/dL [facility]ORY Sodium 134 (L) 135 - 145 mmol/L [facility]ORY Potassium Not Perf 3.5 - 5.0 mmol/L [facility] Comment: Specimen hemolyzed. Called by: [facility], Read back by: Chitra Orantes, Date/Time:07/20/17 03:05. Please note: ??Patients with WBC >100,00 0 may have falsely elevated Potassium levels. ??For accurate Potassium quantif ication in these patients send serum separator tube (gold top) for subsequent determinations. ??Contact the Clinical Chemistry Laboratory if there are any qu estions. Chloride 92 (L) 98 - 107 mmol/L [facility] CO2 29 22 - 31 mmol/L [facility] [...] or in patients with acute kidney failure. http://Rapport/DHnkdep http://Rapport/DHMCnkf Specimen Anatomical Collection Method Collection Time Receive d Time (Source) Location / / Volume Laterality Blood specimen 07/20/2017 2:25 AM 017 2:33 (specimen) EST AM EST Resulting Agency Comment Spec In Lab Annita Reaves MD CHEMISTRY ORDERABLES Performing Organization Address City/State/[place] [address] documented in this encounter [...] to med 0-8,000 Units, Intravenous, BOLUS PER [facility] PROTOCOL, Starting Wed07/20/17 at 0424, Until [...] documented in this encounter Care Teams Digital Solution Architect Relationship Specialty Start Date End Date Lovely Vicente MD PCP - General 04/16/[address] [place] [address] [address] [place] [address] documented as of this encounter
--- OUTSIDE RECORDS SUMMARY | 2022-03-16 08:20 | XMS_ITS | Encounter Summary ---
:1945 Author Organization [facility] [place] [address] Care Team Providers Name Role Phone Lovely Vicente MD Primary Care Provider Reason for Visit Reason Comments Foot Pain Auth/Cert Specialty Diagnoses / Procedures Referred By Contact Refer red To Contact Diagnoses Ischemic foot Procedures NAYE OBSVO Referral ID Status Reason Start Date Expiration Date Visits Requ ested Visits Authorized [id number] 1 1 Encounter Details Date Type Department Care Team Description 07/27/2017 Emergency 1 [facility] Lokesh Swenson MD [facility] [place] [address] Femoral artery pseudo-aneurysm, right; [facility] Tam Bauman MD [facility] [place] [address] [place] [address] Social History Tobacco Use Types Packs/Day [...] Gregory Fatima Patient Age: 72 y.o. Language: Mozambican Race: White Ethnicity: Not [...] please contact your inpatient physician through the [facility] Telegraphic Typewriter Operator . Issues after hours and on weekends [...] RLE critical limb ischemia, who presented to [facility] with worsening RLE pain. Pt post-op course after CABG was significant for paroxysmal Afib, and he was started on Coumadin given elevated DMNU5HPTCO score. 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 He [...] in the last 7068 hours. Invalid input(s): [id number] Recent Labs 07/08/17 0400 07/07/17 0515 07/06/17 [...] (it was low at 1.6 here at [facility]) 7. Use the tramadol if dilaudid or tylenol is not working 8. Stop taking the potassium supplement - your blood potassium level was elevated. Ask your doctors at future visits if this should be restarted. 9. Antibiotic for 5 days recommended by cardiothoracic surgery for chest wound drainage Follow-Up Appointments Vascular surgery as previously schedule Your Inpatient Doctor(s) at [facility]: CARLOS ALBERTO ROSALES MD General Instructions None Future Appointments and Orders Future Appointments Provider Department Dept Phone 07/30/2017 8:30 AM OSWALDO, THREE L Lab 3L [facility] [phone] 07/30/2017 9:40 AM Danette Maxwell APRN Cardiology at [place] [phone] 08/04/2017 1:00 PM Daniele Mooney [place] Vascular Lab at [place] [phone] 08/04/2017 2:15 PM Arik Clement MD Vascular Surgery at [place] [phone] 08/11/2017 10:00 AM [facility] ROOM 2 XRay at [place] [phone] Please go to Plastics Engineering Teacher Area 3T ([place] Location). 08/11/2017 11:00 AM Yuan Retana MD Cardiac Surgery at [place] [phone] 09/07/2017 3:00 PM LAB, THREE L Lab 3L [facility] [phone] 09/07/2017 4:00 PM Luz Prescott MD Endocrinology at [place] [phone] Discharge References/Attachments None documented in this encounter [...] (it was low at 1.6 here at [facility]) 3. Use the tramadol if dilaudid or tylenol is not working 4. Stop taking the potassium supplement - your blood potassium level was elevated. Ask your doctors at future visits if this should be restarted. 5. Antibiotic for 5 days recommended by cardiothoracic surgery for chest wound drainage Follow-Up Appointments Vascular surgery as previously schedule Your Inpatient Doctor(s) at [facility]: CARLOS ALBERTO ROSALES MD [...] Gas) No results found for: PHART, PO2ART, ENS3CZW Assessment/Plan: 72 y.o. male s/p CABG in [...] intervention: Education Nutrition Recommendations: Recommend continuation of [facility], CHO2 diet order Patient [...] Orders Diet Daily Healthy Menu Choices/Cardiac diet ([facility]-Diet) 60/ CHO counting level 2 Frequency: Effective Now Number of Occurrences: Until Specified Admit Weight: 83.92 kg Estimated body mass index is 28.13 kg/(m^2) as calculated from the following: Height as of this encounter: 172.7 cm (5' 8). Weight as of this encounter: 83.9 kg (185 lb). [place] body weight: 68.4 kg (150 lb 12.7 [...] RLE critical limb ischemia, who presented to [facility] with worsening RLE pain. [...] team. Pt will likely be discharged today. CarlosA lberto Rosales MD - 07/27/2017 1:59 PM EST [...] spent >30 minutes (Day of Discharge Code 34530) involved in the final examination of the [...] Melanoma ID: 72 y.o. Male presents to [facility] with persistent pain b/l lower extremities History of Present Illness: HPI 72 y.o. 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 Pt post-op course after CABG was significant for paroxysmal Afib, and he was started on Coumadin given elevated HIJI7SMYHS score. 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 He [...] MD at [facility] OR Prior To Admission Medications: [...] Procedure Component Value Units Date/Time Blood culture [[id number]] Collected: 07/09/1739 Lab Status: Final result Specimen: Blood from Arm, Right Updated: 07/14/17701 Blood Culture No growth at 5 days. Blood culture [[id number]] Collected: 07/09/170 Lab Status: Final result Specimen: [...] limb ischemia following CABG, who presented to [facility] ED from home with [...] continued Diet Daily Healthy Menu Choices/Cardiac diet ([facility]-Diet) 60/60/75 CHO counting level 2Cardiac, low salt, CHO 2 Discharge planning Pending improvement in pain control PT/OT/Speech PT ordered Lines/Access PIV Ocasio catheter No DVT/GI Prophylaxis Lovenox bridge to Coumadin, SCD. Code status Full Code Family PCP Lovely Vicente MD [phone] Attestation Please see my note for details [...] Skin: warm and dry Neuro: GCS 15, UTTTLE x 4 Psych: normal affect, normal eye [...] encounter Miscellaneous Notes Plan of Care - Burnside-Joyce Damian, PT - 07/27/2017 3:26 PM EST [...] Anticipated Discharge Disposition: home with assist Pager: [phone] JOYCE KING, PT Inpatient Physical Therapy 2017 [...] a lovenox bridge. Mr. Fatima returns to [facility] ED tonight because of [...] MD at [facility] OR MEDICATIONS: No current facility-administered [...] up in clinic 1-2 weeks after discharge. [facility] Vascular Surgery Plan of Care - [...] MD [facility] [address] [place], [place] [address] (Wo rk) 05/28/2022 Appointment Cardiology Zulma Dolan MD [facility] [place], [place] [address] (Wo rk) 05/28/2022 Laboratory Appointment Lab 05/28/2022 Office Visit Cardiology Zulma Dolan MD [facility] [place] [address] Liz Poole PA [facility] [place] [address] 06/10/2022 Office Visit Dermatology Laura Scherer MD [facility] [address] TEJA GR[address]MAT [place], [place] [address] (Wo rk) documented as of [...] section. TYPE AND SCREEN STAT 07/27/2017 12:53 ([facility]/CG[facility]/SHANDA) AM EST BASIC METABOLIC PANEL STAT 07/27/2017 12:53 Re sults for this (NON-FASTING) AM EST procedure are in the results section. documented in this encounter Results POCT Glucose (07/27/2017 11:53 AM EST) P athologist Signature POC Glucose 175 65 - 199 [facility] mg/dL [facility] Comment: Supplemental ranges: <140 mg/dL before meals <180 mg/dL all other times of the day Specimen Anatomical Collection Method Collection Time Receive d Time (Source) Location / / Volume Laterality Blood specimen 07/27/2017 11:53 8 (specimen) AM EST 11:53 AM EST Tam Bauman MD POINT OF CARE TEST ORDERABLE S Performing Organization Address City/State/[place] [address] Arterial Duplex Leg, Unil (07/27/2017 7:40 AM EST) Component Value Ref Test Analysis Performed At Patholo gist Range Method Time Signature VB Text Department: Vascular Surgery Lab VASCUBASE Report Patient: [id number] (GREGORY FATIMA) CPT: 37404 ICD10: I97.610;I72.4;Z09 Referring Physician: TAM BAUMAN ?? [...] Glucose 96 65 - 199 [facility] mg/dL [facility] Comment: Supplemental ranges: <140 mg/dL before meals <180 mg/dL all other times of the day Specimen Anatomical Collection Method Collection Time Receive d Time (Source) Location / / Volume Laterality Blood specimen 07/27/2017 6:51 AM 018 6:51 (specimen) EST AM EST Tam Bauman MD POINT OF CARE TEST ORDERABLE S Performing Organization Address City/State/[place] [address] ABORH Recheck Status (07/27/2017 12:53 AM EST) Patholo gist Method Time Signature ABORH Type Completed [facility] LABORATORY Specimen Anatomical Collection Method Collection Time Receive d Time (Source) Location / / Volume Laterality Blood specimen 07/27/2017 12:53 8 (specimen) AM EST 12:58 AM EST Resulting Agency Comment Spec In Lab Angela Swenson MD BLOOD BANK ORDERABLES Performing Organization Address City/State/ZIP Code Phon e Number [address] Gold Tube HOLD (07/27/2017 12:53 AM EST) P athologist Signature Gold Hold Sample in [facility]. [facility] Specimen Anatomical Collection Method Collection Time Receive d Time (Source) Location / / Volume Laterality Blood specimen Venous Draw / 07/27/2017 12:53 07/27/19 18 1:01 (specimen) Unknown AM EST AM EST Angela Swenson MD CHEMISTRY ORDERABLES Performing Organization Address City/[facility]/ZIP Code Phon e Number [address] (ABNORMAL) Differential, Automated (07/27/2017 12:53 AM EST) Patholo gist Method Time Signature Neutrophils % 75.0 % [facility] Neutr Abs (ANC) 11.30 (H) 1.70 - [facility] 6.10 [facility] x10(3)/[facility] LABORATORY Lymphocytes % 9.9 % [facility] Lymphocytes Abs 1.5 0.9 - 3.2 [facility] x10(3)/[facility] LABORATORY Monocytes % 8.6 % [facility] Monocyte Abs 1.3 (H) 0.3 - 0.9 [facility] x10(3)/[facility] LABORATORY Eosinophils % 4.8 % [facility] Eosinophils Abs 0.7 (H) 0.0 - 0.4 [facility] x10(3)/[facility] LABORATORY Basophils % 0.8 % [facility] Basophils Abs 0.1 0.0 - 0.1 [facility] x10(3)/[facility] LABORATORY Immature Gran % 0.90 % [...] Abs 0.13 (H) 0.00 - 0.04 x10(3)/[facility] LABORATORY Specimen Anatomical Collection Method Collection Time Receive d Time (Source) Location / / Volume Laterality Blood specimen 07/27/2017 12:53 8 1:00 (specimen) AM EST AM EST Resulting Agency Comment Spec In Lab Angela Swenson MD HEMATOLOGY ORDERABLES Performing Organization Address City/State/[place] [address] (ABNORMAL) Hemogram (07/27/2017 12:53 AM EST) Analysis Performed At Patho logist Time Signature WBC 15.0 (H) 4.0 - 9.5 [facility] x10(3)/[facility] LABORATORY RBC 3.59 (L) 4.58 - [facility] 5.54 [facility] x10(6)/[facility] LABORATORY Hemoglobin 10.3 (L) 13.7 - [facility] 16.5 gm/dL [facility] Hematocrit 32.6 (L) 40.5 - [facility] 48.5 % [facility] MCV 90.8 82.9 - [facility] 93.1 [facility] LABORATORY MCH 28.7 27.5 - [facility] 32.1 pg [facility] MCHC 31.6 (L) 32.0 - [facility] 35.7 gm/dL [facility] Platelets 322 145 - 357 [facility] x10(3)/[facility] LABORATORY RDWSD 48.7 (H) 36.0 - [facility] 45.0 [facility] LABORATORY RDWCV 14.7 (H) 11.4 - [facility] 13.8 % [facility] MPV 8.9 7.6 - 12.9 [facility] LABORATORY nRBC % Auto 0.0 % [facility] nRBC Abs Auto 0.000 0.000 - [facility] 0.000 [facility] x10(3)/[facility] LABORATORY Specimen Anatomical Collection Method Collection Time Receive d Time (Source) Location / / Volume Laterality Blood specimen 07/27/2017 12:53 8 1:00 (specimen) AM EST AM EST Resulting Agency Comment Spec In Lab Angela Swenson MD HEMATOLOGY ORDERABLES Performing Organization Address City/[facility]/[place] [address] Antibody screen (07/27/2017 12:53 AM EST) Patholo gist Method Time Signature Ab Screen Negative [facility] LABORATORY Expires at 07/30/2017 [facility] 2359 on: [facility] Specimen Anatomical Collection Method Collection Time Receive d Time (Source) Location / / Volume Laterality Blood specimen 07/27/2017 12:53 8 (specimen) AM EST 12:58 AM EST Resulting Agency Comment Spec In Lab Angela Swenson MD BLOOD BANK ORDERABLES Performing Organization Address City/[facility]/[place] [address] ABO/Rh Typing (07/27/2017 12:53 AM EST) P athologist Signature ABORh Type O Pos [facility] Specimen Anatomical Collection Method Collection Time Receive d Time (Source) Location / / Volume Laterality Blood specimen 07/27/2017 12:53 8 (specimen) AM EST 12:58 AM EST Resulting Agency Comment Spec In Lab Angela Swenson MD BLOOD BANK ORDERABLES Performing Organization Address City/[facility] [place] [address] (ABNORMAL) Prothrombin Time (07/27/2017 [...] Organization Address City/State/[place] [address] (ABNORMAL) Basic Metabolic Panel (non-fasting) (07/27/2017 12:53 AM EST) athologist Signature Glucose Lvl 95 65 - 199 [facility] mg/dL [facility] Comment: Diabetes: >=200 mg/dL plus symp toms BUN 37 (H) 10 - 20 mg/dL [facility] Creatinine 1.49 0.80 - 1.50 mg/dL [facility] Sodium 137 135 - 145 mmol/L [facility] Potassium 5.1 (H) 3.5 - 5.0 mmol/L [facility] Comment: Please note: ??Patients with WBC >100,00 0 may have falsely elevated Potassium levels. ??For accurate Potassium quantif ication in these patients send serum separator tube (gold top) for subsequent determinations. ??Contact the Clinical Chemistry Laboratory if there are any qu estions. Chloride 96 (L) 98 - 107 mmol/L [facility] [...] or in patients with acute kidney failure. http://tinyurl.[employer]/DHnkdep http://[employer]/DHMCnkf Specimen Anatomical Collection Method Collection Time Receive d Time (Source) Location / / Volume Laterality Blood specimen 07/27/2017 12:53 8 1:00 (specimen) AM EST AM EST Resulting Agency Comment Spec In Lab Angela Swenson MD CHEMISTRY ORDERABLES Performing Organization Address City/State/Z[place] [address] documented in this encounter Visit Diagnoses Diagnosis Ischemic foot - Primary Unspecified circulatory system disorder Femoral artery pseudo-aneurysm, 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
Routine documented in this encounter Care Teams Shop Repairer Relationship Specialty Start Date End Date Lovely Vicente MD PCP - General 04/16/[address] [place] [address] [address] [place] [address] documented as of this encounter
--- OUTSIDE RECORDS SUMMARY | 2022-03-16 08:20 | XMS_ITS | Encounter Summary ---
:1945 [place] [address] Care Team Providers Name Role Phone Lovely Vicente MD Primary Care Provider Encounter Details Date Type Department Care Team Description 07/16/2017 Telephone Endocrinology at [facility] Manuela Holliday, [facility] [place] [address] ENDOCRINOLOGY DEPT [phone] [place], [place] [address] (Wo rk) Social History Tobacco [...] MD [facility] [address] THOMAS [place], [place] [address] (Wo lissa) 05/28/2022 Appointment Cardiology Zulma Dolan MD [facility] [address] [place] [address] (Wo rk) 05/28/2022 Laboratory Appointment Lab 05/28/2022 Office Visit Cardiology Zulma Dolan MD [facility] [address] Liz Poole PA [facility] [place] [address] 06/10/2022 Office Visit Dermatology Laura Scherer MD [facility] [address] [place], [place] [address] (Wo rk) documented as of this encounter Visit Diagnoses Not on filedocumented in this encounter Care Teams Forestry Technical Officer Relationship Specialty Start Date End Date Lovely Vicente MD PCP - General 04/16/[address] [place] [address] documented as of this encounter
--- OUTSIDE RECORDS SUMMARY | 2022-03-16 08:20 | XMS_ITS | Encounter Summary ---
:1945 [place] [address] Care Team Providers Name Role Phone Lovely Vicente MD Primary Care Provider Reason for Visit Reason Onset Date Comments Questions 07/16/2017 fluid retention Encounter Details Date Type Department Care Team Description 07/16/2017 Telephone Cardiology at [facility] Martha Comer, Questions ([facility] RN retention ) [place] [address] Social History Tobacco Use Types Packs/Day [...] the direct number to the HF team ([phone]). She is aware of his appt with MALE MODEL Hans on 07/21/17 and the need for labs prior to that visit. verbalized good understanding of the current POC. documented in this encounter Plan of Treatment Upcoming Encounters Date Type Specialty Care Team Description 03/26/2022 Office Visit Cardiology Vitaliy Nobles MD [facility] [address] [place], [place] [address] (Wo rk) 05/28/2022 Appointment Cardiology Zulma Dolan MD [facility] [place], [place] [address] (Wo rk) 05/28/2022 Laboratory Appointment Lab 05/28/2022 Office Visit Cardiology Zulma Dolan MD [facility] [place] [address] Liz Poole PA [facility] [place] [address] 06/10/2022 Office Visit Dermatology Laura Scherer MD [facility] DR [address] [place], [place] [address] (Wo rk) documented as of this encounter Visit Diagnoses Not on filedocumented in this encounter Care Teams Color Technician Relationship Specialty Start Date End Date Lovely Vicente MD PCP - General 04/16/[address] [place] [address] documented as of this encounter
--- OUTSIDE RECORDS SUMMARY | 2022-03-16 08:20 | XMS_ITS | Encounter Summary ---
:1945 Author Organization [facility] [place] [address] Care Team Providers Name Role Phone Lovely Vicente MD Primary Care Provider Encounter Details Date Type Department Care Team Description 07/24/2017 Telephone Vascular Surgery Melba Bob [facility] [place] [address] [facility] [phone] VASCULAR SURGERY [place], [place] [address] (Wo rk) Social History Tobacco [...] a PMH of hypertension, hyperlipidemia, DM 2, MAIRA VICTORIA on CPAP who wasadmitted 06/25/17 with anterior STEMI who underwent a three- vessel CABG on 07/07. ??His hospital staywas complicated by A. fib with RVR and he was discharged on Coumadin. ??He presented to [facility] on 07/20 with mottled toes [...] [facility] [address] [place] [address] (Wo rk) 05/28/2022 Appointment Cardiology Zulma Dolan MD [facility] [address] [place] [address] (Wo rk) 05/28/2022 Laboratory Appointment Lab 05/28/2022 Office Visit Zulma Garrison MD [facility] [place] [address] [facility] [place] [address] 06/10/2022 Office Visit Dermatology Laura Scherer MD [facility] DR TEJA [address] [place], [place] [address] (Wo rk) documented as of this encounter Visit Diagnoses Not on filedocumented in this encounter Care Teams Bank Credit Card Collection Clerk Relationship Specialty Start Date End Date Lovely Vicente MD PCP - General 04/16/[address] [place] [address] documented as of this encounter
--- OUTSIDE RECORDS SUMMARY | 2022-03-16 08:20 | XMS_ITS | Encounter Summary ---
:1945 Author Organization [facility] [place] [address] Care Team Providers Name Role Phone Lovely Vicente MD Primary Care Provider Reason for Visit Reason Onset Date Comments Other 07/22/2017 lovenox bridge Encounter Details Date Type Department Care Team Description 07/22/2017 Telephone Cardiology at [facility] Court Cadena RN Other (lovenox bridge) [place] [address] Social History Tobacco Use Types Packs/Day [...] 4:49 PM EST VAMSI Del Castillo, at [facility], called earlier today with a question re: lovenox bridge for this patient who was recently discharged [facility] r/t a blood clot. Discharge note faxed to [facility] (fax# [phone], Ph#: [phone]) which contains instructions r/t lovenox bridge as follows: Anticoagulation: on lovenox bridge to therapeutic coumadin for AFib. Goal INR 2-3. At discharge INR=1.5. The lovenox injections can stop when INR >2, coumadin will continue indefinitely. documented in this encounter Plan of Treatment Upcoming Encounters Date Type Specialty Care Team Description 03/26/2022 Office Visit Cardiology Vitaliy Nobles MD [facility] [address] [place], [place] [address] (Wo rk) 05/28/2022 Appointment Cardiology Zulma Dolan MD [facility] [address] [place], [place] [address] (Wo rk) 05/28/2022 Laboratory Appointment Lab 05/28/2022 Office Visit Cardiology Zulma Dolan MD [facility] [place] [address] Liz Poole PA [facility] [place] [address] 06/10/2022 Office Visit Dermatology Laura Scherer MD [facility] DR [address] [place], [place] [address] (Wo rk) documented as of this encounter Visit Diagnoses Not on filedocumented in this encounter Care Teams Clinical Admissions Manager Relationship Specialty Start Date End Date Lovely Vicente MD PCP - General 04/16/[address] [place] [address] documented as of this encounter
--- OUTSIDE RECORDS SUMMARY | 2022-03-16 08:21 | XMS_ITS | Encounter Summary ---
:1945 Author Organization [facility] [place] [address] Care Team Providers Name Role Phone Lovely Vicente MD Primary Care Provider Reason for Referral Consultation (Routine) - Closed Specialty Diagnoses / Referred By Contact Referred To Contact Procedures Cardiac Rehabilitation Diagnoses S/P CABG x 3 Yuan Webber, Cardiac Rehab, [address] [place] CARDIOTHORACIC [address] [place] [address] Referral ID Status Reason Start Date Expiration Date Visits V isits Requested Authorized [id number] Closed Consult, 07/14/2017 01/10/2018 36 36 Test & Treat Reason for Visit Auth/Cert Specialty Diagnoses / Procedures Referred By Contact Refer red To Contact Diagnoses STEMI (ST elevation myocardial infarction) NSTEMI STEMI Procedures CARDIAC CATHETERIZATION NAYE IPI Referral ID Status Reason Start Date Expiration Date Visits Requ ested Visits Authorized [id number] 1 1 Encounter Details Date Type Department Care Team Description 07/05/2017 - Hospital Encounter Cardiac Special Daphne Shahid MD [facility] [place] [address] Non-ST elevation myocardial infarction ( NSTEMI); 07/14/2017 Care Unit Yuan Preciado MD [facility] [place] [address] S/P CABG x 3 [place] [id number] Social History Tobacco Use Types Packs/Day Years [...] , @ 1:20p Patient to follow-up with Refrigeration Plant Cork Insulator/heart failure team in one week. An appointment will be made for you. You may call [phone] Patient to follow-up with Cardiac Surgery, Dr. Yuan Webber, in ~ 4 weeks with CXR, EKG. Inpatient Provider Contact Information: [facility] [place] [facility] [place] [id number] FAX [phone] Discharge Diagnoses (Hospital Problems) Primary Diagnoses: CAD [...] 33.75) performed by Yuan Webber MD at [facility] MAIN OR ??? PRO CABG, ARTERY-VEIN, TWO N/A 07/07/2017 @CABG, TWO VENOUS GRAFTS & ARTERIAL GRAFT (WRVU 7.93) performed by Yuan Webber MD at [facility] MAIN OR ??? PRO COLONOSCOPY, REMV LESN, SNARE 01/16/2014 COLONOSCOPY, POLYPECTOMY, REMOVAL LESION BY SNARE performed by Nohemi Jaimes MD at [facility] ENDOSCOPY ??? PRO ENDOSCOPY W/VIDEO-ASST VEIN HARVEST, CABG Right 07/07/2017 ENDOSCOPIC HARVEST VEIN(S) FOR CABG (WRVU 0.31) performed by Yuan Webber MD at [facility] MAIN OR ??? PRO THYROIDECTOMY 03/28/2013 THYROIDECTOMY, TOTAL OR COMPLETE performed by Manny Mcknight MD at [facility] MAIN OR Prior To Admission Medications Prescriptions Prior to Admission Medication Sig Dispense Refill Last Dose ??? levothyroxine (SYNTHROID) 175 mcg Tablet Take 1 tablet by mouth daily. 90 tablet 3 07/05/2017 [id number] ??? ascorbic acid, vitamin C, (VITAMIN C) [...] Hospital Course: Gregory Hoang was admitted to [facility] on 07/05/2017 via the Cardiology Service. During his hospital course, he was taken emergently to the lab support tech for an ongoing STEMI. An IABP was [...] not take or discontinue any prescription or uoyr-txq-tibgbze medications without asking your doctor or pharmacist [...] to have your insulin doses adjusted. [facility] Endocrine clinic office Discharge Instructions: Call your doctor if: You have a fever of greater than 101 degrees, shaking chills, if you develop redness or drainage from your incision sites, or if you have questions. Please call your surgeon's office if you have any discharge or drainage from your chest incision. Your surgeon, Dr. Yuan Webber and/or the Cardiac Surgery Physician Cemetery Vault Installer Team may be reached at . Weight: [...] Dr. Yuan Webber. You may use a [place] Track or treadmill but avoid any pulling [...] with the surgeon. Do not ride motorcycles, Re[employer]ent Nova's tractors or horses. Avoid the use of [...] should resume a low fat, low cholesterol, [place] Heart Association Diet/Diabetic diet. Driving: No driving [...] , @ 1:20p Patient to follow-up with Refrigeration Plant Cork Insulator/heart failure team in one week. Appointment will be made for you. You may call [phone] Patient to follow-up with Cardiac Surgery, Dr. Yuan Webber, in ~ 4 weeks with CXR, EKG. Cardiac Rehabilitation: Gregory Hoang was seen today regarding participation in the outpatient Phase 2 Cardiac Rehabilitation at [facility]. The patient agrees to a referral to this program. The referral will be sent at discharge and the patient should be contacted by the Program within 1- 2 weeks from discharge. ?? Future Appointments and Orders Future Appointments Provider Department Dept Phone 09/07/2017 3:00 PM LAB, THREE L Lab 3L [facility] [phone] 09/07/2017 4:00 PM Luz Prescott MD Endocrinology at [place] [phone] Future Orders Complete By Expires EKG 12 Lead [EKG1 Custom] 08/14/2017 02/13/2018 Process Instructions: Scheduling Instructions: Questions: Which location will this be performed?: [place] Is a rhythm strip needed?: No If EKG Reason is Pre-op Evaluation, indicate diagnosis for surgery.: XR Chest PA & Lateral (Generic) [[id number] Custom] 08/14/2017 02/13/2018 Process Instructions: Scheduling Instructions: Questions: Where will study be performed?: [place] [facility] Portable exam?: Reason for exam and clinical history: CABG x 3 Other pertinent information: Stat read required?: Date of injury if applicable: Requested Time: Referral to Cardiac Rehab [VTA781 Custom] As directed Process Instructions: If no progress note charted, please enter Clinical details in comments. Scheduling Instructions: Questions: My question or request is: s/p CABG. Cardiac rehab at [facility] Referral to Home Health - at DISCHARGE [QVX7711 CPT(R)] As directed Process Instructions: Scheduling Instructions: Comments: DOCUMENTATION FOR VNA SERVICES (INCLUDING THOSE PATIENTS WITH MEDICARE COVERAGE REQUIRING HOME VNA SERVICES AND/OR HOSPICE SERVICES) PATIENT'S LOCATION: Gregory Hoang [address] [place] [address] [place] [id number] (home) Telephone Information: Hydrogen Plant Operations Manager's Name: self In discussion with the attending physician, it is certified that this patient is under their care and that they, or a Nurse Practitioner, or Physician Cemetery Vault Installer who is working directly with them, had [...] [facility] ([facility] [place] [employer]-is in [place] PHONE: [phone] FAX: [phone] RN orders: Cardiopulmonary assessment, incisional assessment, assess vital signs, assessment of rehab progress, medication management and effectiveness, home safety evaluation. Please draw INR if indicated and send result to:Dr Vicente [phone] PT ORDERS: Continue rehab for endurance, gait stability and strength with mobility and transfers. Home safety evaluation. Home exercise program if appropriate. Start of Care Date:24-48 hours after discharge SPECIAL INSTRUCTIONS: For any follow up questions, needs, or issues please call the Cardiac Surgery Office at [phone] FOR MEDICARE ONLY: (please delete this section [...] AFTER 07/17/2017 Signed: Martha Teague APRN [facility] [place]iac [place] [facility] [place] [phone] FAX [phone] Date: 07/14/2017 CC: MD Ivania Cr Betsy, PA [address] [place] [phone] documented in this encounter Discharge Instructions Discharge [...] to have your insulin doses adjusted. [facility] Endocrine clinic office Patient InstructionsStMartha [...] not take or discontinue any prescription or ehvx-daf-qpnpxcn medications without asking your doctor or pharmacist [...] juice or regular (not diet) soda 6 Graduatelands small box of raisins 4 glucose tablets [...] to have your insulin doses adjusted. [facility] Endocrine clinic office ? Discharge [...] Yuan Webber and/or the Cardiac Surgery Physician Cemetery Vault Installer Team may be reached at . ?? [...] Dr. Yuan Webber. You may use a [place] Track or treadmill but avoid any pulling [...] with the surgeon. Do not ride motorcycles, [employer] tractors or horses. Avoid the use of [...] should resume a low fat, low cholesterol, [place] Heart Association Diet/Diabetic diet. ?? Driving: No [...] @ 1:20p ?? Patient to follow-up with Refrigeration Plant Cork Insulator/heart failure team in one week. An appointment has been made for you, you can call [phone] ?? Patient to follow-up with Cardiac Surgery, Dr. Yuan Webber, in ~ 4 weeks with CXR, EKG. ? Cardiac Rehabilitation: Gregory Hoang??was seen today regarding participation in the outpatient Phase 2 Cardiac Rehabilitation at [facility]. ?? The patient agrees to a referral to this program.? The referral will be sent at discharge and the patient should be contacted by the Program within 1- 2 weeks from discharge. ? Future Appointments and Orders Future Appointments Provider Department Dept Phone ?? 09/07/2017 3:00 PM LAB, THREE L Lab 3L [facility] [phone] ?? 09/07/2017 4:00 PM Luz Prescott MD Endocrinology at [place] [phone] Future Orders Complete By Expires ?? EKG 12 Lead [EKG1 Custom] 08/14/2017 02/13/2018 ?? Process Instructions: ? Scheduling Instructions: ? Questions: ? Which location will this be performed?: [place] ?? Is a rhythm strip needed?: No ?? If EKG Reason is Pre-op Evaluation, indicate diagnosis for surgery.: ?? XR Chest PA & Lateral (Generic) [[id number] Custom] 08/14/2017 02/13/2018 ?? Process Instructions: ? Scheduling Instructions: ? Questions: ? Where will study be performed?: [place] ?? Portable exam?: ?? Reason for exam and clinical history: CABG x 3 ?? Other pertinent information: ?? Stat read required?: ?? Date of injury if applicable: ?? Requested Time: ?? Referral to Cardiac Rehab [VCI114 Custom] As directed ? Process Instructions: ?? If no progress note charted, please enter Clinical details in comments. ?? Scheduling Instructions: ? Questions: ? My question or request is: s/p CABG. Cardiac rehab at [facility] ? Arrangements for VNA/home [...] RN - 07/14/2017 2:34 PM EST The patient/environmental marketing representative has been provided a list of Home Health Agencies/DME vendors which serve their preferred geographic area. A letter describing our affiliations was reviewed with them and theywere educated about their right to choose where referrals are placed. Patient requests referral to [facility] PHONE: [phone] FAX: [phone] Expected date of discharge: 07/14 Referral routed to the Guest Services Lead for matching with agency/vendor and to provide [...] [phone] Results for GREGORY HOAGN ( ) as of 07/14/2017 11:09 Ref. [...] to have your insulin doses adjusted. [facility] Endocrine clinic office Kathie Carrera APRN [facility] Endocrinology Diabetes Management Pager [phone] minutes of this 35 minute visit was spent with the patient in counseling on diabetes and treatment plan, reviewing all glucose and insulin data as well as relevant laboratory results with the patient, and coordination of care on the inpatient unit including nursing and primary team. Zulma Andres, RN - 07/14/2017 10:30 AM EST The patient/environmental marketing representative has been provided a list of Home Health Agencies/DME vendors which serve their preferred geographic area. A letter describing our affiliations was reviewed with them and theywere educated about their right to choose where referrals are placed. Patient requests referral to : Yasmani Munguia ([facility] [place] [facility]-is in [place] PHONE: [phone] FAX: [phone]. Expected date of discharge: 07/14/17 Referral routed to the Guest Services Lead for matching with agency/vendor and to provide [...] continue to follow Katerin Azul APRN [facility] Endocrinology Diabetes Management Pager [phone] minutes of this 25 minute visit [...] of infiltration/extravasation Discussed plan of care with DIRECTOR HOSPICE OPERATIONS and RN. Elevate exrtemity and apply intermittent Warm compresses. Name of MD contacted Dr. Shaw Brown 07/13/2017 @ 0656 Name of RN contacted Ale Rangel RN Name of Pharmacist if consulted NA Name of Plastics MD ( if consulted) NA (Mandatory photo for infiltrations/ extravasations scoring a stage 2 or greater, but recommended forstage 1)( include measuring tape and identifier in the photo) MANAGER AGRICULTURAL CARING FOR THIS PATIENT WILL CONTINUE TO [...] measuring tape and identifier in the photo) MANAGER AGRICULTURAL CARING FOR THIS PATIENT WILL CONTINUE TO [...] actions prior to implementation, all of Mr. Honag's questions and concerns with regard to both infiltrates addressed by this typewriter mechanic.All of Mr. Hoang's responses were entirely appropriate. Images of infiltrates attached here. Martha Sharp APRN - 07/13/2017 8:01 AM EST Cardiac Surgery Progress Note: ID: [id number] 72 year old male POD#6 s/p CABGx3 [...] discharge. ?? I have met with the patient/environmental marketing representative to discuss discharge planning needs. I have provided the [facility], Office of Care Management letter from the Election Clerk pertaining to rehab referrals. I have also provided a letter describing our affiliations within the [facility] and educated them about their right to choose where referrals are placed. ?? I reviewed the different levels of rehab including SNF, swing, acute and LTAC with the patient/environmental marketing representative. ?? The patient/environmental marketing representative has been provided a list of facilities within their preferred geographic area. ?? I have requested that the patient/environmental marketing representative provide at least three choices for referral. ?? The patient/environmental marketing representative have requested referrals to: ?? 1. . ?? 2. [facility] ?? 3. More to be entered ?? Expected date of discharge: 07/14 Note routed to Guest Services Lead who will communicate referrals to facilities and [...] hours. If BG remains greater than 240, olfild85 units (no more than three times) & call for new basal insulin orders. ??If less than 240 after two hours, give no insulin and resume prior schedule. Will continue to follow Katerin Patel. STACIE Azul [facility] Endocrinology Diabetes Management Pager [phone] 20 minutes of this 35 minute visit was spent with the patient in counseling on diabetes and treatment plan, reviewing all glucose and insulin data as well as relevant laboratory results with the patient, and coordination of care on the inpatient unit including nursing and primary team. Makayla Stevenson APRN - 07/12/2017 9:52 AM EST Cardiac Surgery Progress Note: ID: [id number] 72 year old male POD#5 s/p CABGx3 [...] 07/11/2017 7:18 PM EST Patient arrived from [facility]. VSS. MSI dressing pulled off [...] hours. If BG remains greater than 240, ymwfta13 units (no more than three times) & [...] AM EST Cardiac Surgery Progress Note: ID: [id number] 72 year old male POD#4 s/p CABGx3 [...] hours. If BG remains greater than 240, rbcpew59 units (no more than three times) & [...] AM EST Cardiac Surgery Progress Note: ID: [id number] 72 year old male POD#3 s/p CABGx3 [...] Gas) No results found for: PHART, PO2ART, QGG2NAF Assessment/Plan: 72 year old male POD#3 s/p [...] Encounter Note Patient Name: Gregory Hoang : [id number] MR#: [id number] Admit Date: 07/05/2017 4:20 PM Hospital Day 4 days Narrative: Patient was sitting in chair, hugging heart pillow, opened his eyes, nodding to come into room Assessment: Patient was sleepy. Intervention and Outcome: Introduced railway track worker services and patient reached his hand out in appreciation. Follow-up: Incinerator Plant Supervisor remains available for support. Time in Direct [...] AM EST Report given to senior staff consultant to cover care Maddison Cee PA - 07/09/2017 9:00 AM EST Cardiac Surgery Progress Note: ID: [id number] 72 year old male POD#2 s/p CABGx3 [...] O2 as tolerated GI: RBOs, protonix : ocasoi, continue to monitor I+O Renal: Lasix 20 IV qd x 2 days, then transition to Lasix 20 po. Check K, replete K prn ID: periop antibiotics complete Heme: ASA 81 Endo: insulin gtt, continue care per diabetes management, appreciate the consult Dispo: CVCC, FULL CODE DW Attending Surgeon on rounds. Signed: STEPHANIE Iqbal [facility] Section of Cardiac Surgery Date: 07/09/2017 Magnolia Santiago [facility] - 07/09/2017 1:33 AM EST [...] when IABP d/c'ed. Gretchen Carolina, PT Pager [phone] Maddison Cee PA - 07/08/2017 11:27 AM EST Cardiac Surgery Progress Note: ID: [id number] 72 year old male POD#1 s/p CABGx3 [...] CODE DW Attending Surgeon on rounds. Signed: TSEPHANIE Iqbal [facility] Section of Cardiac Surgery [...] unit. NICK SEGAL MD 07/08/2017 Jay Munoz [facility] - 07/08/2017 4:33 AM EST [...] in place in R femoral. No hematoma. SCHOOL PHOTOGRAPHS DETAILER- Intact Psych- Anxious Skin- Dry, no peripheral [...] PM EST Cardiovascular Critical Care Attending Note Gregroy Hoang 1945 Age: 72 y.o. PCP: Lovely [...] intact. IABP in place in R femoral. SCHOOL PHOTOGRAPHS DETAILER- Intact Psych- Anxious Skin- Dry, no peripheral [...] note for details. DAPHNE SHAHID MD Pager [phone] Jet Mckenna MD - 07/05/2017 6:48 PM EST Preliminary Cardiac Catheterization Procedure Note: Procedure(s) performed: Left heart cath, IABP insertion Access: Right PEWTER FINISHER-->8fr IABP A time-out was conducted prior to [...] Heparin gtt maintained. Pt transferred to lab support tech. documented in this encounter H&P Notes Daphne Shahid MD - 07/05/2017 6:08 PM EST CARDIOLOGY HISTORY & PHYSICAL EXAM Date of Admission: 07/05/2017 ( Hospital Day 0 days ) Responsible Attending: Daphne Shahid MD PCP: Lovely Vicente MD PCP#: [phone] Patient Active Problem List Diagnosis Code ??? [...] significant valvular disease. Taken to the lab support tech urgently for ongoing STEMI. [facility] Labs: INR 1.0 WBC [...] I/O - s/p lasix in the lab support tech, redose to aim net neg 1L by [...] - ISS - hold metformin - f/u [facility] #Home Meds - continue levothyroxine 175mcg - CPAP at night # Routine - DVT PPx: heparin drip - Diet: NPO - Code Status: FULL - Dispo: CVCC Cedric Bey MD Internal Medicine, PGY-2 Cardiology S1, Team Pager # [phone] CARDIOLOGY ATTENDING NOTE Patient: Gregory Hoang Date [...] amenable for PCI. DAPHNE SHAHID MD Pager [phone] documented in this encounter Miscellaneous Notes Consult Note - Daphne Shahid MD - 07/14/2017 11:46 AM EST Heart Failure Service Inpatient Consult Note Gregory Hoang Date of : 1945 Age: 72 y.o. Today's date: 07/14/17 PCP: Lovely Vicente MD FITNESS LEADER: None Place of Service: [facility] Reason for Consult: Dr. Webber has requested [...] 33.75) performed by Yuan Webber MD at [facility] MAIN OR ??? PRO CABG, ARTERY-VEIN, TWO N/A 07/07/2017 @CABG, TWO VENOUS GRAFTS & ARTERIAL GRAFT (WRVU 7.93) performed by Yuan Webber MD at [facility] MAIN OR ??? PRO COLONOSCOPY, REMV LESN, SNARE 01/16/2014 COLONOSCOPY, POLYPECTOMY, REMOVAL LESION BY SNARE performed by Nohemi Jaimes MD at [facility] ENDOSCOPY ??? PRO ENDOSCOPY W/VIDEO-ASST VEIN HARVEST, CABG Right 07/07/2017 ENDOSCOPIC HARVEST VEIN(S) FOR CABG (WRVU 0.31) performed by Yuan Webber MD at [facility] MAIN OR ??? PRO THYROIDECTOMY 03/28/2013 THYROIDECTOMY, TOTAL OR COMPLETE performed by Manny Mcknight MD at [facility] MAIN OR Outpt Meds: Current Outpatient [...] following studies: EKG 07/14/17: NSR 75 bpm, DAIRY FARMWORKER anterior infarct, LAD CXR 07/11/17: FINDINGS: Sternotomy wires. The patient has been extubated, left chest tube removed, and [place]-Suzi catheter removed since the 07/07/2017 study. Atelectasis [...] was discussed with Zehra. Jaden Kelley MD Forest Ecologist Pager [phone] CARDIOLOGY ATTENDING NOTE Patient: Gregory Hoang Date [...] heart failure clinic. DAPHNE SHAHID MD Pager [phone] Plan of Care - Alden Chavarria, STAFF RESEARCH ASSOCIATE - 07/14/2017 11:35 AM EST Problem: Patient [...] Discharge Disposition: home with assist Alden Chavarria, STAFF RESEARCH ASSOCIATE Pager: [phone] Inpatient Physical Therapy Problem: Acute Rehab Services [...] sit/sit to supine -- Bed Mobility Goal, [place] Level supervision required -- Bed Mobility Goal, [...] - 3 days -- Gait Training Goal, [place] Level supervision required -- Gait Training Goal, [...] days -- Transfer Training Goal, Activity Type oop-vh-krynq/veoef-xn-cmr;atu-fb-toovj/ysinw-ko-ytr;toilet -- Transfer Train Goal, [place] Level supervision required -- Transfer Training Goal, [...] keeping present for 2 days per family. Detective Investigator noted of frustrations, house keeping sent to room. Patient offered showered twice, refused. at bedside, frustrated that shower not complete, informed that patient had refused several times. requesting to see AGRICULTURAL PRODUCE SORTER, paged sent to Martha, will come to bedside (middle of consult). not willing to wait, Martha notified that family had gone home. Encouraged to come for morning rounds a t 8am. Diabetes team at bedside - insulin adjustments made. Call cabello in reach. Continue to monitor. PLAN MOVING FORWARD: Ambulate, dressing changes BID, Please change drsg at 4am per Martha AGRICULTURAL PRODUCE SORTER request. INDIVIDUALIZED FALL PREVENTION INTERVENTIONS: Patient-specific fall [...] levels on the lower side, 60ml of [place] juice given after a FS of 80. [...] Conf 07/13/17 0502 Interdisciplinary Rounds/Family Conf Participants disease case manager;dietitian/nutrition services;nursing;occupational therapy;patient;pharmacy;physical therapy;physician Plan of [...] Anticipated Discharge Disposition: home with assist Pager: [phone] CLARISSA SEGAL, PT 07/12/2017 Physical Therapy Rehabilitation [...] to sit/sit to supine Bed Mobility Goal, [place] Level supervision required Bed Mobility Goal, Additional Goal adheres to psternal precautions for transfer Goal: Gait Training Goal Stand Alone Therapy Goal Outcome: Ongoing (Interventions Implemented as Appropriate) 07/12/17 1225 Gait Training Goal Gait Training Goal, Date Established 07/12/17 Gait Training Goal, Time to Achieve 2 - 3 days Gait Training Goal, [place] Level supervision required Gait Training Goal, Assist [...] 3 days Transfer Training Goal, Activity Type dcb-ms-irkgv/pfctx-mo-blr;zue-nn-rzywq/acfha-ta-tzs;toilet Transfer Train Goal, [place] Level supervision required Transfer Training Goal, Additional Goal adheres to sternal precautions during transfer Consult Note - cOtavia Vaughn RN - 07/12/2017 10:50 AM EST [facility] CARDIAC REHABILITATION Gregory Hoang was seen today regarding participation in the outpatient Phase 2 Cardiac Rehabilitation at [facility]. The patient agrees to [...] IV site, amio to other piv and SHEET METAL SUPERINTENDENT at bedside to help assess, IV removed. [...] Outcome: Ongoing (Interventions Implemented as Appropriate) 07/11/17199907/11/17200907/12/17 [facility] Daily Care Interventions Self-Care Promotion -- [...] staff, he stood and marched in place. [place] weak, wanting to sit back down. Remained [...] Outcome: Ongoing (Interventions Implemented as Appropriate) 07/05/17 3849 Mutuality/Individual Preferences What Anxieties, Fears or Concerns [...] Health/Prescription Coverage: Primary Insurance: MEDICARE Secondary Insurance: [employer] [place] Prescription Coverage: yes [facility]erred [facility]acy[facility] [place] Other: none Primary Care Provider: Lovely Vicente MD [phone] Patient/Caregiver Goals of Treatment:live and get my breath back Potential Needs for Transition of Care: Rehab/SNF: [facility]; [facility] Home Health: NA DME: TBD Dialysis: na Community Resources: available Transportation: yes Other: none Anticipated Barriers to Discharge/Special Considerations: none Plan: Likely SNF Rehab before home A member of the Care Management team will continue to monitor progress, follow for continuity of care and assist with transition of care planning. ERLIN Weiss Pager: [phone] Consult Note - Katerin Azul RN - [...] potential to d/c gtt and start CF. alf diabetes care: Medications - Outpatient treatment regimen recommendations pending based on the hospital course. Monitoring - continue BG tid ac & hs Diet - low fat/low carb diet Exercise - weight-bearing exercise 30 min/day, as tolerated Thank you for allowing us to provide care for your patient W/E coverage, Dr. Jeane Tatum, pager [phone] Katerin Patel. STACIE Azul Endocrinology Diabetes Management Pager [phone] Plan of Care - Stephanie Godoy RN [...] MD - 07/07/2017 6:27 PM EST [facility] Operative Note Patient Name: Gregory Hoang : [id number] MR#: [id number] Case Date: 07/07/2017 Surgeon: Surgeon(s) and Role: * Yuan Webber MD - Primary * Michael Drake PA - Physician Cemetery Vault Installer * Linda Flores PA - Physician Cemetery Vault Installer Preoperative diagnosis: 3VD Postoperative diagnosis: CAD, severe [...] Operative Note Patient Name: Gregory Hoang : [id number] MR#: [id number] Case Date: 07/07/2017 Surgeon: Surgeon(s) and Role: * Yuan Webber MD - Primary * Michael Drake PA - Physician Cemetery Vault Installer * Linda Flores PA - Physician Cemetery Vault Installer Preoperative diagnosis: 3VD Postoperative diagnosis: CAD, severe [...] code status: Full Code Katty Jovani, MS3 [employer] [facility] Cardiology S1 (Pager [phone]) Plan of Care - Emelia Ibarra RN [...] [facility] ENDOSCOPY ??? PRO THYROIDECTOMY 03/28/2013 THYROIDECTOMY, TOTAL OR COMPLETE performed by Manny Mcknight MD at [facility] MAIN OR Social History: Social History [...] with other involved physicians Yuan Webber MD [phone] Med Student Progress Note - Jovani Katty [...] BiPAP - s/p lasix in the lab support tech, was net -1.5L - s/p plavix load, [...] FULL - Dispo: CVCC Katty Hahn, M3 [facility] Cardiology S1 (Pager [phone]) Plan of Care - Stephanie Godoy RN [...] urinal without difficulty. Lasix given in lab support tech, 1.4 L out at this time. Pt [...] MD [facility] [address] [place], [place] [address] (Wo rk) 05/28/2022 Appointment Cardiology Zulma Dolan MD [facility] [address] [place], [place] [address] (Wo rk) 05/28/2022 Laboratory Appointment Lab 05/28/2022 Office Visit Cardiology Zulma Dolan [place] [facility] [place] [address] Liz Poole PA [facility] [place] [address] 06/10/2022 Office Visit Dermatology Laura Scherer MD [facility] [address] TEJA GR[place]MAT [place], [place] [address] ( rk) Scheduled Orders Name [...] are i n the results section. HOME THEATER EXPERIENCE EXPERT SCAN 07/15/2017 12:00 Res ults for this [...] Routine 07/07/2017 5:15 Results f or this ([facility]) AM EST procedure are i [...] Routine 07/06/2017 7:40 Results f or this ([facility]) PM EST procedure are i [...] 07/06/2017 2:10 Results f or this ([facility]) PM EST procedure are i [...] TYPE AND SCREEN Routine 07/06/2017 12:00 ([facility]/SHANDA) PM EST APTT STAT 07/06/2017 [...] 07/06/2017 8:10 Results f or this ([facility]) AM EST procedure are i [...] 07/06/2017 2:20 Results f or this ([facility]) AM EST procedure are i [...] 07/05/2017 8:20 Results f or this ([facility]) PM EST procedure are i [...] 07/05/2017 4:55 Results f or this ([facility]) PM EST procedure are i [...] EXAMINATION: XR CHEST PA AND LATERAL ([employer]) CLINICAL HISTORY: CABG x 3 TECHNIQUE: PA [...] Teague APRN IMG DX ORDERABLES SCAN DOC: HOME THEATER EXPERIENCE EXPERT (07/15/2017 12:00 AM EST) Narrative 07/15/2017 12:00 [...] Signature POC Glucose 186 65 - 199 [facility] mg/dL [facility] Comment: Supplemental ranges: <140 mg/dL before meals <180 mg/dL all other times of the day Specimen Anatomical Collection Method Collection Time Receive d Time (Source) Location / / Volume Laterality Blood specimen 07/14/2017 11:56 7 (specimen) AM EST 11:56 AM EST Yuan Webber MD POINT OF CARE TEST ORDERABLE S Performing Organization Address City/[facility] Code Phon e Number [address] POCT Glucose (07/14/2017 7:52 AM EST) athologist Signature POC Glucose 126 65 - [address] [facility] mg[facility]dL [facility] Comment: Supplemental ranges: <140 mg/dL before meals <180 mg/dL all other times of the day Specimen Anatomical Collection Method Collection Time Receive d Time (Source) Location / / Volume Laterality Blood specimen 07/14/2017 7:52 AM 017 7:52 (specimen) EST AM EST Yuan Webber MD POINT OF CARE TEST ORDERABLE S Performing Organization Address City/[facility] [place] [address] (ABNORMAL) Prothrombin Time (07/14/2017 4:46 AM EST) athologist Signature PT 26.4 (H) 11.8 - 14.0 [facility] LABORATORY INR 2.4 (H) 0.9 - 1.1 [facility] [...] [place] STACIE HEMATOLOGY ORDERABLES Performing Organization Address City/[facility] Code Phon e Number [address] Potassium (07/14/2017 4:46 AM EST) athologist Signature Potassium 4.3 3.5 - 5.0 [facility] mmol/L [facility] Comment: Please note: ??Patients [...] Resulting Agency Comment Spec In Lab Makayla Beckley STACIE CHEMISTRY ORDERABLES Performing Organization Address City/[facility] Phon e Number [address] POCT Glucose (07/14/2017 4:34 AM EST) athologist Signature POC Glucose 115 65 - 199 [facility] mg/dL [facility] Comment: Supplemental ranges: <140 mg/dL before meals <180 mg/dL all other times of the day Specimen Anatomical Collection Method Collection Time Receive d Time (Source) Location / / Volume Laterality Blood specimen 07/14/2017 4:34 AM 017 4:34 (specimen) EST AM EST Yuan Webber MD POINT OF CARE TEST ORDERABLE S Performing Organization Address City/State/[place] [address] POCT Glucose (07/13/2017 11:33 PM EST) athologist Signature POC Glucose 132 65 - 199 [place] mg/dL [facility] Comment: Supplemental ranges: <140 mg/dL before meals <180 mg/dL all other times of the day Specimen Anatomical Collection Method Collection Time Receive d Time (Source) Location / / Volume Laterality Blood specimen 07/13/2017 11:33 7 (specimen) PM EST 11:33 PM EST Yuan Webber MD POINT OF CARE TEST ORDERABLE S Performing Organization Address City/[facility]/[place] [address] POCT Glucose (07/13/2017 9:25 PM EST) athologist Signature POC Glucose 121 65 - 199 [place] mg/dL [facility] Comment: Supplemental ranges: <140 mg/dL before meals <180 mg/dL all other times of the day Specimen Anatomical Collection Method Collection Time Receive d Time (Source) Location / / Volume Laterality Blood specimen 07/13/2017 9:25 PM 017 9:25 (specimen) EST PM EST Yuan Webber MD POINT OF CARE TEST ORDERABLE S Performing Organization Address City/State/[place] [address] POCT Glucose (07/13/2017 4:55 PM EST) athologist Signature POC Glucose 79 65 - 199 [facility] mg/dL [facility] Comment: Supplemental ranges: <140 mg/dL before meals <180 mg/dL all other times of the day Specimen Anatomical Collection Method Collection Time Receive d Time (Source) Location / / Volume Laterality Blood specimen 07/13/2017 4:55 PM 017 4:55 (specimen) EST PM EST Yuan Webber MD POINT OF CARE TEST ORDERABLE S Performing Organization Address City/State/ZIP Code Phon e Number [address] POCT Glucose (07/13/2017 11:16 AM EST) athologist Signature POC Glucose 163 65 - 199 [facility] mg/dL [facility] Comment: Supplemental ranges: <140 mg/dL before meals <180 mg/dL all other times of the day Specimen Anatomical Collection Method Collection Time Receive d Time (Source) Location / / Volume Laterality Blood specimen 07/13/2017 11:16 7 (specimen) AM EST 11:16 AM EST Yuan Webber MD POINT OF CARE TEST ORDERABLE S Performing Organization Address City/[facility]/[place] [address] POCT Glucose (07/13/2017 8:07 AM EST) athologist Signature POC Glucose 96 65 - 199 [facility] Comment: Supplemental ranges: <140 mg/dL before meals <180 mg/dL all other times of the day Specimen Anatomical Collection Method Collection Time Receive d Time (Source) Location / / Volume Laterality Blood specimen 07/13/2017 8:07 AM 017 8:07 (specimen) EST AM EST Yuan Webber MD POINT OF CARE TEST ORDERABLE S Performing Organization Address City/State/[place] [address] (ABNORMAL) Prothrombin Time (07/13/2017 4:26 AM EST) athologist Signature PT 20.8 (H) 11.8 - 14.0 [facility] LABORATORY INR 1.8 (H) 0.9 - 1.1 [facility] [...] Agency Comment Spec In Lab Makayla Wilson OPEN HEARTH FURNACE OPERATOR HELPER HEMATOLOGY ORDERABLES Performing Organization Address City/State/[place] [address] (ABNORMAL) Basic Metabolic Panel (non-fasting) (07/13/2017 4:26 AM EST) athologist Signature Glucose Lvl 95 65 - 199 [facility] mg/dL [facility] Comment: Diabetes: >=200 mg/dL plus symp toms BUN 25 (H) 10 - 20 mg/dL [facility] Creatinine 1.19 0.80 - [...] 15 mmol/L [facility] Calcium 7.7 (L) 8.5 - 10.5 mg/dL [facility] LABORATORY Estimated GFR 60 >=60 [facility] Comment: The reported eGFR should be multiplied b y 1.2 for patients. The MDRD is not an appropriate measure o f renal function for patients with body mass extremes or in patients with acute kidney failure. http://[employer].com/DHnkdep http://ChemoCentry[employer].com/DHMCnkf Specimen Anatomical Collection Method Collection Time Receive d Time (Source) Location / / Volume Laterality Blood specimen 07/13/2017 4:26 AM 017 4:46 (specimen) EST AM EST Resulting Agency Comment Spec In Lab Makayla Katie QUINONES CHEMISTRY ORDERABLES Performing Organization Address City/State/[place] [address] POCT Glucose (07/13/2017 3:52 AM EST) athologist Signature POC Glucose 93 65 - 199 [place] mg/dL [facility] Comment: Supplemental ranges: <140 mg/dL before meals <180 mg/dL all other times of the day Specimen Anatomical Collection Method Collection Time Receive d Time (Source) Location / / Volume Laterality Blood specimen 07/13/2017 3:52 AM 017 3:52 (specimen) EST AM EST Yuan Webber MD POINT OF CARE TEST ORDERABLE S Performing Organization Address City/State/[place] [address] POCT Glucose (07/13/2017 12:21 AM EST) athologist Signature POC Glucose 80 65 - 199 [place] mg/dL [facility] Comment: Supplemental ranges: <140 mg/dL before meals <180 mg/dL all other times of the day Specimen Anatomical Collection Method Collection Time Receive d Time (Source) Location / / Volume Laterality Blood specimen 07/13/2017 12:21 7 (specimen) AM EST 12:21 AM EST Yuan Webber MD POINT OF CARE TEST ORDERABLE S Performing Organization Address City/State/ZIP Code Phon e Number [address] POCT Glucose (07/12/2017 8:22 PM EST) athologist Signature POC Glucose 119 65 - 199 [place] mg/dL [facility] Comment: Supplemental ranges: <140 mg/dL before meals <180 mg/dL all other times of the day Specimen Anatomical Collection Method Collection Time Receive d Time (Source) Location / / Volume Laterality Blood specimen 07/12/2017 8:22 PM 017 8:22 (specimen) EST PM EST Yuan Webber MD POINT OF CARE TEST ORDERABLE S Performing Organization Address City/State/ZIP Code Phon e Number [address] POCT Glucose (07/12/2017 4:02 PM EST) athologist Signature POC Glucose 114 65 - 199 [place] mg/dL [facility] Comment: Supplemental ranges: <140 mg/dL before meals <180 mg/dL all other times of the day Specimen Anatomical Collection Method Collection Time Receive d Time (Source) Location / / Volume Laterality Blood specimen 07/12/2017 4:02 PM 017 4:02 (specimen) EST PM EST Yuan Webber MD POINT OF CARE TEST ORDERABLE S Performing Organization Address City/State/ZIP Code Phon e Number [address] POCT Glucose (07/12/2017 11:28 AM EST) athologist Signature POC Glucose 164 65 - 199 [place] mg/dL [facility] Comment: Supplemental ranges: <140 mg/dL before meals <180 mg/dL all other times of the day Specimen Anatomical Collection Method Collection Time Receive d Time (Source) Location / / Volume Laterality Blood specimen 07/12/2017 11:28 7 (specimen) AM EST 11:28 AM EST Yuan Webber MD POINT OF CARE TEST ORDERABLE S Performing Organization Address City/State/ZIP Code Phon e Number [address] POCT Glucose (07/12/2017 7:34 AM EST) athologist Signature POC Glucose 109 65 - 199 [place] mg/dL [facility] Comment: Supplemental ranges: <140 mg/dL before meals <180 mg/dL all other times of the day Specimen Anatomical Collection Method Collection Time Receive d Time (Source) Location / / Volume Laterality Blood specimen 07/12/2017 7:34 AM 017 7:34 (specimen) EST AM EST Yuan Webber MD POINT OF CARE TEST ORDERABLE S Performing Organization Address City/State/[place] [address] (ABNORMAL) Basic Metabolic Panel (non-fasting) (07/12/2017 4:11 AM EST) athologist Signature Glucose Lvl 92 65 - 199 [facility] mg/dL [facility] Comment: Diabetes: >=200 mg/dL plus symp toms BUN 31 (H) 10 - 20 mg/dL [facility] Creatinine 1.23 0.80 - [...] mmol/L [facility] CO2 Not Perf 22 - 31 mmol/L [facility] Comment: Add-on request. Sample too old to perform test. Anion Gap Not Calculated 5 - 15 mmol/L [facility] Calcium 8.1 (L) 8.5 - 10.5 mg/dL [facility]OR[facility]ORY Estimated GFR 58 (L) >=60 [facility] Comment: The reported eGFR should be multiplied b y 1.2 for patients. The MDRD is not an appropriate measure o f renal function for patients with body mass extremes or in patients with acute kidney failure. http://Mira Dx/DHnkdep http://M[employer] D[employer]/DHMCnkf Specimen Anatomical Collection Method Collection Time Receive d Time (Source) Location / / Volume Laterality Blood specimen 07/12/2017 4:11 AM 017 8:57 (specimen) EST AM EST Resulting Agency Comment Spec In Lab Makayla Wilson APRN CHEMISTRY ORDERABLES Performing Organization Address [facility]/[place] [address] (ABNORMAL) Prothrombin Time (07/12/2017 4:11 AM EST) athologist Signature PT 15.4 (H) 11.8 - 14.0 [facility] LABORATORY INR 1.2 (H) 0.9 - 1.1 [facility] [...] Wilson APRN HEMATOLOGY ORDERABLES Performing Organization Address [facility] [place] [address] Potassium (07/12/2017 4:11 AM EST) athologist Signature Potassium 3.8 3.5 - 5.0 [facility] mmol/L [facility] Comment: Please note: ??Patients [...] Address City/State/ZIP Code Phon e Number [address] POCT Glucose (07/12/2017 4:10 AM EST) athologist Signature POC Glucose 90 65 - 199 [place] mg/dL [facility] Comment: Supplemental ranges: <140 mg/dL before meals <180 mg/dL all other times of the day Specimen Anatomical Collection Method Collection Time Receive d Time (Source) Location / / Volume Laterality Blood specimen 07/12/2017 4:10 AM 017 4:10 (specimen) EST AM EST Yuan Webber MD POINT OF CARE TEST ORDERABLE S Performing Organization Address City/[facility]/ZIP Code Phon e Number [address] POCT Glucose (07/11/2017 11:57 PM EST) athologist Signature POC Glucose 98 65 - 199 [place] mg/dL [facility] Comment: Supplemental ranges: <140 mg/dL before meals <180 mg/dL all other times of the day Specimen Anatomical Collection Method Collection Time Receive d Time (Source) Location / / Volume Laterality Blood specimen 07/11/2017 11:57 7 (specimen) PM EST 11:57 PM EST Yuan Webber MD POINT OF CARE TEST ORDERABLE S Performing Organization Address City/[facility]/[place] [address] POCT Glucose (07/11/2017 8:32 PM EST) athologist Signature POC Glucose 146 65 - 199 [place] mg/dL [facility] Comment: Supplemental ranges: <140 mg/dL before meals <180 mg/dL all other times of the day Specimen Anatomical Collection Method Collection Time Receive d Time (Source) Location / / Volume Laterality Blood specimen 07/11/2017 8:32 PM 017 8:32 (specimen) EST PM EST Yuan Webber MD POINT OF CARE TEST ORDERABLE S Performing Organization Address City/State/ZIP Code Phon e Number [facility] [place] [address] XR Chest PA & [...] e xtubated, left chest tube removed, and [place]-Suzi catheter removed since the study. Atelectasis at [...] e xtubated, left chest tube removed, and [place]-Suzi catheter removed since the study. Atelectasis at [...] 65 - 199 [place] mg/dL [facility] Comment: Supplemental ranges: <140 mg/dL before meals <180 mg/dL all other times of the day Specimen Anatomical Collection Method Collection Time Receive d Time (Source) Location / / Volume Laterality Blood specimen 07/11/2017 4:05 PM 017 4:05 (specimen) EST PM EST Yuan Webber MD POINT OF CARE TEST ORDERABLE S Performing Organization Address City/State/[place] [address] POCT Glucose (07/11/2017 11:55 AM EST) athologist Signature POC Glucose 176 65 - 199 [place] mg/dL [facility] Comment: Supplemental ranges: <140 mg/dL before meals <180 mg/dL all other times of the day Specimen Anatomical Collection Method Collection Time Receive d Time (Source) Location / / Volume Laterality Blood specimen 07/11/2017 11:55 7 (specimen) AM EST 11:55 AM EST Yuan Webber MD POINT OF CARE TEST ORDERABLE S Performing Organization Address City/State/[place] [address] POCT Glucose (07/11/2017 7:53 AM EST) athologist Signature POC Glucose 189 65 - 199 [place] mg/dL [facility] Comment: Supplemental ranges: <140 mg/dL before meals <180 mg/dL all other times of the day Specimen Anatomical Collection Method Collection Time Receive d Time (Source) Location / / Volume Laterality Blood specimen 07/11/2017 7:53 AM 017 7:53 (specimen) EST AM EST Yuan Webber MD POINT OF CARE TEST ORDERABLE S Performing Organization Address City/State/ZIP Code Phon e Number [address] POCT Glucose (07/11/2017 4:22 AM EST) athologist Signature POC Glucose 151 65 - 199 [place] mg/dL [facility] Comment: Supplemental ranges: <140 mg/dL before meals <180 mg/dL all other times of the day Specimen Anatomical Collection Method Collection Time Receive d Time (Source) Location / / Volume Laterality Blood specimen 07/11/2017 4:22 AM 017 4:22 (specimen) EST AM EST Yuan Webber MD POINT OF CARE TEST ORDERABLE S Performing Organization Address City/State/[place] [address] Potassium (07/11/2017 2:20 AM EST) athologist Signature Potassium 4.5 3.5 - 5.0 [facility] mmol/L [facility] Comment: Please note: ??Patients [...] Address City/State/ZIP Code Phon e Number [address] POCT Glucose (07/11/2017 12:17 AM EST) athologist Signature POC Glucose 162 65 - [address] [facility] mg/dL [facility] Comment: Supplemental ranges: <140 mg/dL before meals <180 mg/dL all other times of the day Specimen Anatomical Collection Method Collection Time Receive d Time (Source) Location / / Volume Laterality Blood specimen 07/11/2017 12:17 7 (specimen) AM EST 12:17 AM EST Yuan Webber MD POINT OF CARE TEST ORDERABLE S Performing Organization Address City/[facility]/ZIP Code Phon e Number [address] POCT Glucose (07/10/2017 8:47 PM EST) athologist Signature POC Glucose 191 65 - 199 [place] mg/dL [facility] Comment: Supplemental ranges: <140 mg/dL before meals <180 mg/dL all other times of the day Specimen Anatomical Collection Method Collection Time Receive d Time (Source) Location / / Volume Laterality Blood specimen 07/10/2017 8:47 PM 017 8:47 (specimen) EST PM EST Yuan Webber MD POINT OF CARE TEST ORDERABLE S Performing Organization Address City/State/ZIP Code Phon e Number [address] POCT Glucose (07/10/2017 4:06 PM EST) athologist Signature POC Glucose 131 65 - 199 [place] mg/dL [facility] Comment: Supplemental ranges: <140 mg/dL before meals <180 mg/dL all other times of the day Specimen Anatomical Collection Method Collection Time Receive d Time (Source) Location / / Volume Laterality Blood specimen 07/10/2017 4:06 PM 017 4:06 (specimen) EST PM EST Yuan Webber MD POINT OF CARE TEST ORDERABLE S Performing Organization Address City/State/ZIP Code Phon e Number [address] POCT Glucose (07/10/2017 3:08 PM EST) athologist Signature POC Glucose 151 65 - 199 [place] mg/dL [facility] Comment: Supplemental ranges: <140 mg/dL before meals <180 mg/dL all other times of the day Specimen Anatomical Collection Method Collection Time Receive d Time (Source) Location / / Volume Laterality Blood specimen 07/10/2017 3:08 PM 017 3:08 (specimen) EST PM EST Yuan Webber MD POINT OF CARE TEST ORDERABLE S Performing Organization Address City/State/ZIP Code Phon e Number [address] POCT Glucose (07/10/2017 2:25 PM EST) athologist Signature POC Glucose 146 65 - 199 [place] mg/dL [facility] [facility] Comment: Supplemental ranges: <140 mg/dL before meals <180 mg/dL all other times of the day Specimen Anatomical Collection Method Collection Time Receive d Time (Source) Location / / Volume Laterality Blood specimen 07/10/2017 2:25 PM 017 2:25 (specimen) EST PM EST Yuan Webber MD POINT OF CARE TEST ORDERABLE S Performing Organization Address City/State/[place] [address] POCT Glucose (07/10/2017 1:23 PM EST) athologist Signature POC Glucose 166 65 - 199 [place] mg/dL [facility] Comment: Supplemental ranges: <140 mg/dL before meals <180 mg/dL all other times of the day Specimen Anatomical Collection Method Collection Time Receive d Time (Source) Location / / Volume Laterality Blood specimen 07/10/2017 1:23 PM 017 1:23 (specimen) EST PM EST Yuan Webber MD POINT OF CARE TEST ORDERABLE S Performing Organization Address City/State/[place] [address] POCT Glucose (07/10/2017 11:52 AM EST) athologist Signature POC Glucose 157 65 - 199 [place] mg/dL [facility] Comment: Supplemental ranges: <140 mg/dL before meals <180 mg/dL all other times of the day Specimen Anatomical Collection Method Collection Time Receive d Time (Source) Location / / Volume Laterality Blood specimen 07/10/2017 11:52 7 (specimen) AM EST 11:52 AM EST Yuan Webber MD POINT OF CARE TEST ORDERABLE S Performing Organization Address City/State/ZIP Code Phon e Number [address] POCT Glucose (07/10/2017 11:01 AM EST) athologist Signature POC Glucose 158 65 - 199 [place] mg/dL [facility] Comment: Supplemental ranges: <140 mg/dL before meals <180 mg/dL all other times of the day Specimen Anatomical Collection Method Collection Time Receive d Time (Source) Location / / Volume Laterality Blood specimen 07/10/2017 11:01 7 (specimen) AM EST 11:01 AM EST Yuan Webber MD POINT OF CARE TEST ORDERABLE S Performing Organization Address City/State/ZIP Code Phon e Number [address] POCT Glucose (07/10/2017 9:54 AM EST) athologist Signature POC Glucose 160 65 - 199 [place] mg/dL [facility] Comment: Supplemental ranges: <140 mg/dL before meals <180 mg/dL all other times of the day Specimen Anatomical Collection Method Collection Time Receive d Time (Source) Location / / Volume Laterality Blood specimen 07/10/2017 9:54 AM 017 9:54 (specimen) EST AM EST Yuan Webber MD POINT OF CARE TEST ORDERABLE S Performing Organization Address City/State/ZIP Code Phon e Number [address] POCT Glucose (07/10/2017 8:58 AM EST) athologist Signature POC Glucose 183 65 - 199 [place] mg/dL [facility] Comment: Supplemental ranges: <140 mg/dL before meals <180 mg/dL all other times of the day Specimen Anatomical Collection Method Collection Time Receive d Time (Source) Location / / Volume Laterality Blood specimen 07/10/2017 8:58 AM 017 8:58 (specimen) EST AM EST Yuan Webber MD POINT OF CARE TEST ORDERABLE S Performing Organization Address City/State/[place] [address] POCT Glucose (07/10/2017 8:01 AM EST) athologist Signature POC Glucose 173 65 - 199 [place] mg/dL [facility] Comment: Supplemental ranges: <140 mg/dL before meals <180 mg/dL all other times of the day Specimen Anatomical Collection Method Collection Time Receive d Time (Source) Location / / Volume Laterality Blood specimen 07/10/2017 8:01 AM 017 8:01 (specimen) EST AM EST Yuan Webber MD POINT OF CARE TEST ORDERABLE S Performing Organization Address City/[facility]/ZIP Code Phon e Number [address] POCT Glucose (07/10/2017 7:05 AM EST) P athologist Signature POC Glucose 166 65 - 199 [facility] Comment: Supplemental ranges: <140 mg/dL before meals <180 mg/dL all other times of the day Specimen Anatomical Collection Method Collection Time Receive d Time (Source) Location / / Volume Laterality Blood specimen 07/10/2017 7:05 AM 017 7:05 (specimen) EST AM EST Yuan Webber MD POINT OF CARE TEST ORDERABLE S Performing Organization Address City/[facility]/ZIP Code Phon e Number [address] POCT Glucose (07/10/2017 6:00 AM EST) P athologist Signature POC Glucose 162 65 - 199 [facility] Comment: Supplemental ranges: <140 mg/dL before meals <180 mg/dL all other times of the day Specimen Anatomical Collection Method Collection Time Receive d Time (Source) Location / / Volume Laterality Blood specimen 07/10/2017 6:00 AM 017 6:00 (specimen) EST AM EST Yuan Webber MD POINT OF CARE TEST ORDERABLE S Performing Organization Address City/State/ZIP Code Phon e Number [address] (ABNORMAL) Differential, Automated (07/10/2017 4:28 AM EST) [facility] gist Method Time Signature Neutrophils % 87.9 % [facility] Neutr Abs (ANC) 10.70 (H) 1.70 - [facility] 6.10 [facility] x10(3)/[facility] L LABORATORY Lymphocytes % 3.9 % [facility] Lymphocytes Abs 0.5 (L) 0.9 - 3.2 [facility] x10(3)/[facility] LABORATORY Monocytes % 7.0 % [facility] Monocyte Abs 0.8 0.3 - 0.9 [facility] x10(3)/[facility] LABORATORY Eosinophils % 0.3 % [facility] Eosinophils Abs 0.0 0.0 - 0.4 [facility] x10(3)/[facility] LABORATORY Basophils % 0.2 % [facility] Basophils Abs 0.0 0.0 - 0.1 [facility] x10(3)/[facility] LABORATORY Immature Gran % 0.70 % [...] Organization Address City/State/[place] [address] (ABNORMAL) Hemogram (07/10/2017 4:28 AM EST) Analysis Performed At Patho logist Time Signature WBC 12.2 (H) 4.0 - 9.5 [facility] x10(3)/[facility] LABORATORY RBC 3.31 (L) 4.58 - [facility] 5.54 [facility] x10(6)/[facility] LABORATORY Hemoglobin 9.8 (L) 13.7 - [facility] 16.5 gm/dL [facility] Hematocrit 30.0 (L) 40.5 - [place] 48.5 % [facility] MCV 90.6 82.9 - [place] 93.1 [facility] LABORATORY MCH 29.6 27.5 - [place] 32.1 pg [facility] MCHC 32.7 32.0 - [place] 35.7 gm/dL [facility] Platelets 135 (L) 145 - 357 [facility] x10(3)/[facility] LABORATORY RDWSD 50.8 (H) 36.0 - [place] 45.0 [facility] LABORATORY RDWCV 15.4 (H) 11.4 - [place] 13.8 % [facility] MPV 10.0 7.6 - 12.9 [facility] LABORATORY nRBC % Auto 0.0 % [facility] nRBC Abs Auto 0.000 0.000 - [place] 0.000 [facility] x10(3)/[facility] LABORATORY Specimen Anatomical Collection Method Collection Time Receive d Time (Source) Location / / Volume Laterality Blood specimen 07/10/2017 4:28 AM 017 4:36 (specimen) EST AM EST Resulting Agency Comment Spec In Lab Yuan Webber MD HEMATOLOGY ORDERABLES Performing Organization Address City/State/[place] [address] (ABNORMAL) Basic Metabolic Panel (non-fasting) (07/10/2017 4:28 AM EST) P athologist Signature Glucose Lvl 178 65 - 199 [facility] mg/dL [facility] Comment: Diabetes: >=200 mg/dL plus symp toms BUN 20 10 - 20 mg/dL [facility] Creatinine 1.19 0.80 - [...] estions. Chloride 107 98 - 107 mmol/L [facility] CO2 21 (L) 22 - 31 mmol/L [facility] Anion Gap 15 5 - 15 mmol/L [facility] Calcium 7.4 (L) 8.5 - 10.5 mg/dL [facility] LAB[facility]ORY Estimated GFR 60 >=60 [facility] Comment: The reported eGFR should be multiplied b y 1.2 for patients. The MDRD is not an appropriate measure o f renal function for patients with body mass extremes or in patients with acute kidney failure. [email or web address] [email or web address] [email or web address] [email or web address] Specimen Anatomical Collection Method Collection Time Receive d Time (Source) Location / / Volume Laterality Blood specimen 07/10/2017 4:28 AM 017 4:36 (specimen) EST AM EST Resulting Agency Comment Spec In Lab Yuan Webber MD CHEMISTRY ORDERABLES Performing Organization Address City/[facility]/ZIP Code Phon e Number [address] POCT Glucose (07/10/2017 4:26 AM EST) athologist Signature POC Glucose 176 65 - 199 [facility] Comment: Supplemental ranges: <140 mg/dL before meals <180 mg/dL all other times of the day Specimen Anatomical Collection Method Collection Time Receive d Time (Source) Location / / Volume Laterality Blood specimen 07/10/2017 4:26 AM 017 4:26 (specimen) EST AM EST Yuan Webber MD POINT OF CARE TEST ORDERABLE S Performing Organization Address City/[facility]/[place] [address] (ABNORMAL) POCT Glucose (07/10/2017 3:06 AM EST) athologist Signature POC Glucose 204 (H) 65 - 199 [facility] Comment: Supplemental ranges: <140 mg/dL before meals <180 mg/dL all other times of the day Specimen Anatomical Collection Method Collection Time Receive d Time (Source) Location / / Volume Laterality Blood specimen 07/10/2017 3:06 AM 017 3:06 (specimen) EST AM EST Yuan Webber MD POINT OF CARE TEST ORDERABLE S Performing Organization Address City/State/[place] [address] (ABNORMAL) POCT Glucose (07/10/2017 2:10 AM EST) P athologist Signature POC Glucose 203 (H) 65 - 199 [place] mg/dL [facility] Comment: Supplemental ranges: <140 mg/dL before meals <180 mg/dL all other times of the day Specimen Anatomical Collection Method Collection Time Receive d Time (Source) Location / / Volume Laterality Blood specimen 07/10/2017 2:10 AM 017 2:10 (specimen) EST AM EST Yuan Webber MD POINT OF CARE TEST ORDERABLE S Performing Organization Address City/State/[place] [address] POCT Glucose (07/10/2017 1:09 AM EST) P athologist Signature POC Glucose 196 65 - 199 [place] mg/dL [facility] Comment: Supplemental ranges: <140 mg/dL before meals <180 mg/dL all other times of the day Specimen Anatomical Collection Method Collection Time Receive d Time (Source) Location / / Volume Laterality Blood specimen 07/10/2017 1:09 AM 017 1:09 (specimen) EST AM EST Yuan Webber MD POINT OF CARE TEST ORDERABLE S Performing Organization Address City/State/[place] [address] POCT Glucose (07/10/2017 12:10 AM EST) P athologist Signature POC Glucose 173 65 - 199 [place] mg/dL [facility] Comment: Supplemental ranges: <140 mg/dL before meals <180 mg/dL all other times of the day Specimen Anatomical Collection Method Collection Time Receive d Time (Source) Location / / Volume Laterality Blood specimen 07/10/2017 12:10 7 (specimen) AM EST 12:10 AM EST Yuan Webber MD POINT OF CARE TEST ORDERABLE S Performing Organization Address City/State/[place] [address] POCT Glucose (07/09/2017 11:01 PM EST) P athologist Signature POC Glucose 140 65 - 199 [place] mg/dL [facility] Comment: Supplemental ranges: <140 mg/dL before meals <180 mg/dL all other times of the day Specimen Anatomical Collection Method Collection Time Receive d Time (Source) Location / / Volume Laterality Blood specimen 07/09/2017 11:01 7 (specimen) PM EST 11:01 PM EST Yuan Webber MD POINT OF CARE TEST ORDERABLE S Performing Organization Address City/State/[place] [address] POCT Glucose (07/09/2017 10:05 PM EST) athologist Signature POC Glucose 144 65 - 199 [place] mg/dL [facility] Comment: Supplemental ranges: <140 mg/dL before meals <180 mg/dL all other times of the day Specimen Anatomical Collection Method Collection Time Receive d Time (Source) Location / / Volume Laterality Blood specimen 07/09/2017 10:05 7 (specimen) PM EST 10:05 PM EST Yuan Webber MD POINT OF CARE TEST ORDERABLE S Performing Organization Address City/State/ZIP Code Phon e Number [address] POCT Glucose (07/09/2017 9:31 PM EST) athologist Signature POC Glucose 121 65 - 199 [facility] SU mg/dL [facility] Comment: Supplemental ranges: <140 mg/dL before meals <180 mg/dL all other times of the day Specimen Anatomical Collection Method Collection Time Receive d Time (Source) Location / / Volume Laterality Blood specimen 07/09/2017 9:31 PM 017 9:31 (specimen) EST PM EST Yuan Webber MD POINT OF CARE TEST ORDERABLE S Performing Organization Address City/State/ZIP Code Phon e Number [address] POCT Glucose (07/09/2017 9:03 PM EST) athologist Signature POC Glucose 98 65 - 199 [place] mg/dL [facility] Comment: Supplemental ranges: <140 mg/dL before meals <180 mg/dL all other times of the day Specimen Anatomical Collection Method Collection Time Receive d Time (Source) Location / / Volume Laterality Blood specimen 07/09/2017 9:03 PM 017 9:03 (specimen) EST PM EST Yuan Webber MD POINT OF CARE TEST ORDERABLE S Performing Organization Address City/State/ZIP Code Phon e Number [address] POCT Glucose (07/09/2017 8:09 PM EST) athologist Signature POC Glucose 117 65 - 199 [place] mg/dL [facility] Comment: Supplemental ranges: <140 mg/dL before meals <180 mg/dL all other times of the day Specimen Anatomical Collection Method Collection Time Receive d Time (Source) Location / / Volume Laterality Blood specimen 07/09/2017 8:09 PM 017 8:09 (specimen) EST PM EST Yuan Webber MD POINT OF CARE TEST ORDERABLE S Performing Organization Address City/State/[place] [address] POCT Glucose (07/09/2017 5:40 PM EST) athologist Signature POC Glucose 155 65 - 199 [place] mg/dL [facility] Comment: Supplemental ranges: <140 mg/dL before meals <180 mg/dL all other times of the day Specimen Anatomical Collection Method Collection Time Receive d Time (Source) Location / / Volume Laterality Blood specimen 07/09/2017 5:40 PM 017 5:40 (specimen) EST PM EST Yuan Webber MD POINT OF CARE TEST ORDERABLE S Performing Organization Address City/[facility]/ZIP Code Phon e Number [address] POCT Glucose (07/09/2017 4:24 PM EST) athologist Signature POC Glucose 164 65 - 199 [place] mg/dL [facility] Comment: Supplemental ranges: <140 mg/dL before meals <180 mg/dL all other times of the day Specimen Anatomical Collection Method Collection Time Receive d Time (Source) Location / / Volume Laterality Blood specimen 07/09/2017 4:24 PM 017 4:24 (specimen) EST PM EST Yuan Webber MD POINT OF CARE TEST ORDERABLE S Performing Organization Address City/[facility]/ZIP Code Phon e Number [address] POCT Glucose (07/09/2017 3:19 PM EST) athologist Signature POC Glucose 166 65 - 199 [place] mg/dL [facility] Comment: Supplemental ranges: <140 mg/dL before meals <180 mg/dL all other times of the day Specimen Anatomical Collection Method Collection Time Receive d Time (Source) Location / / Volume Laterality Blood specimen 07/09/2017 3:19 PM 017 3:19 (specimen) EST PM EST Yuan Webber MD POINT OF CARE TEST ORDERABLE S Performing Organization Address City/State/ZIP Code Phon e Number [address] POCT Glucose (07/09/2017 2:26 PM EST) athologist Signature POC Glucose 179 65 - 199 [place] mg/dL [facility] Comment: Supplemental ranges: <140 mg/dL before meals <180 mg/dL all other times of the day Specimen Anatomical Collection Method Collection Time Receive d Time (Source) Location / / Volume Laterality Blood specimen 07/09/2017 2:26 PM 017 2:26 (specimen) EST PM EST Yuan Webber MD POINT OF CARE TEST ORDERABLE S Performing Organization Address City/[facility]/ZIP Code Phon e Number [address] (ABNORMAL) POCT Glucose (07/09/2017 1:29 PM EST) P athologist Signature POC Glucose 210 (H) 65 - 199 [place] mg/dL [facility] Comment: Supplemental ranges: <140 mg/dL before meals <180 mg/dL all other times of the day Specimen Anatomical Collection Method Collection Time Receive d Time (Source) Location / / Volume Laterality Blood specimen 07/09/2017 1:29 PM 017 1:29 (specimen) EST PM EST Yuan Webber MD POINT OF CARE TEST ORDERABLE S Performing Organization Address City/[facility]/[place] [address] POCT Glucose (07/09/2017 12:20 PM EST) P athologist Signature POC Glucose 172 65 - 199 [place] mg/dL [facility] Comment: Supplemental ranges: <140 mg/dL before meals <180 mg/dL all other times of the day Specimen Anatomical Collection Method Collection Time Receive d Time (Source) Location / / Volume Laterality Blood specimen 07/09/2017 12:20 7 (specimen) PM EST 12:20 PM EST Yuan Webber MD POINT OF CARE TEST ORDERABLE S Performing Organization Address City/State/[place] [address] POCT Glucose (07/09/2017 11:24 AM EST) P athologist Signature POC Glucose 156 65 - 199 [facility] SU mg/dL [facility] Comment: Supplemental ranges: <140 mg/dL before meals <180 mg/dL all other times of the day Specimen Anatomical Collection Method Collection Time Receive d Time (Source) Location / / Volume Laterality Blood specimen 07/09/2017 11:24 7 (specimen) AM EST 11:24 AM EST Yuan Webber MD POINT OF CARE TEST ORDERABLE S Performing Organization Address City/State/ZIP Code Phon e Number [address] POCT Glucose (07/09/2017 11:11 AM EST) P athologist Signature POC Glucose 172 65 - 199 [place] mg/dL [facility] Comment: Supplemental ranges: <140 mg/dL before meals <180 mg/dL all other times of the day Specimen Anatomical Collection Method Collection Time Receive d Time (Source) Location / / Volume Laterality Blood specimen 07/09/2017 11:11 7 (specimen) AM EST 11:11 AM EST Yuan Webber MD POINT OF CARE TEST ORDERABLE S Performing Organization Address City/[facility]/ZIP Code Phon e Number [address] POCT Glucose (07/09/2017 10:08 AM EST) P athologist Signature POC Glucose 176 65 - 199 [place] mg/dL [facility] Comment: Supplemental ranges: <140 mg/dL before meals <180 mg/dL all other times of the day Specimen Anatomical Collection Method Collection Time Receive d Time (Source) Location / / Volume Laterality Blood specimen 07/09/2017 10:08 7 (specimen) AM EST 10:08 AM EST Yuan Webber MD POINT OF CARE TEST ORDERABLE S Performing Organization Address City/State/ZIP Code Phon e Number [address] POCT Glucose (07/09/2017 8:02 AM EST) P athologist Signature POC Glucose 178 65 - 199 [place] mg/dL [facility] Comment: Supplemental ranges: <140 mg/dL before meals <180 mg/dL all other times of the day Specimen Anatomical Collection Method Collection Time Receive d Time (Source) Location / / Volume Laterality Blood specimen 07/09/2017 8:02 AM 017 8:02 (specimen) EST AM EST Yuan Webber MD POINT OF CARE TEST ORDERABLE S Performing Organization Address City/State/[place] [address] (ABNORMAL) BLOOD GAS 2 ARTERIAL (07/09/2017 5:37 AM EST) Analysis Performed At Patho logist Time Signature pH Art 7.36 7.35 - [facility] 7.45 [facility] pCO2 Art 38 35 - 45 [facility] mmHg [facility] pO2 Art 79 (L) 85 - 104 [facility] LABORATORY HCO3 Art 20.9 20.0 - [facility] 26.0 [facility] mmol/L [facility] LAB[facility] BE Art -4.6 (L) -3.0 - 3.0 [facility] mmol/L [facility] Hgb Blood Gas 10.5 (L) 13.7 - [facility] 16.5 gm/dL [facility] O2HB Art 93.8 (L) 94.0 - [facility] 97.0 % [facility] COHB Art 0.3 % [facility] Comment: Nonsmokers: 0.5-1.5% COHB Smokers: Variable, but usually less than 10% Toxic: 20-30% COHB Lethal: Greater than 60% COHB METHB Art 0.6 <=1.5 % [facility] Na Whole Blood 141 135 - 145 mmol/L [facility] K Whole Blood 4.5 3.5 - 5.0 mmol/L [facility] Comment: Please note: Patients with WBC >100,000 may have falsely elevated Potassium levels. Contact the Clinical Chemistry L aboratory if there are any questions. ICa Whole Blood 1.01 (L) 1.15 - 1.33 mmol/L [facility] [...] Lactate WB 1.0 0.5 - 2.2 mmol/L [facility] FIO2 Art 40 % [facility] PF Ratio Art 198 [facility] Specimen Anatomical Collection Method Collection Time Receive d Time (Source) Location / / Volume Laterality Blood specimen 07/09/2017 5:37 AM 017 5:37 (specimen) EST AM EST Yuan Webber MD CHEMISTRY ORDERABLES Performing Organization Address City/[facility]/ZIP Code Phon e Number [address] POCT Glucose (07/09/2017 3:27 AM EST) athologist Signature POC Glucose 192 65 - 199 [facility] Comment: Supplemental ranges: <140 mg/dL before meals <180 mg/dL all other times of the day Specimen Anatomical Collection Method Collection Time Receive d Time (Source) Location / / Volume Laterality Blood specimen 07/09/2017 3:27 AM 017 3:27 (specimen) EST AM EST Yuan Webber MD POINT OF CARE TEST ORDERABLE S Performing Organization Address City/[facility]/ZIP Code Phon e Number [address] (ABNORMAL) Basic Metabolic Panel (non-fasting) (07/09/2017 2:30 AM EST) athologist Signature Glucose Lvl 179 65 - 199 [facility] Comment: Diabetes: >=200 mg/dL plus symp toms BUN 17 10 - 20 mg/dL [facility] Creatinine 1.34 0.80 - [...] Chloride 111 (H) 98 - 107 mmol/L [facility] CO2 21 (L) 22 - 31 mmol/L [facility] Anion Gap 12 5 - 15 mmol/L [facility] Calcium 7.1 (L) 8.5 - 10.5 mg/dL [facility] LABOR[facility]ORY Comment: result [id number]-[id number] Estimated GFR 53 (L) >=60 [facility] Comment: The reported eGFR should be multiplied b y 1.2 for patients. The MDRD is not an appropriate measure o f renal function for patients with body mass extremes or in patients with acute kidney failure. [email or web address] [email or web address] Specimen Anatomical Collection Method Collection Time Receive d Time (Source) Location / / Volume Laterality Blood specimen Venous Draw / 07/09/2017 2:30 AM 2016 2:42 (specimen) Unknown EST AM EST Resulting Agency Comment Spec In Lab Yuan Webber MD CHEMISTRY ORDERABLES Performing Organization Address City/State/[place] [address] (ABNORMAL) Potassium (07/09/2017 2:30 AM EST) P athologist Signature Potassium 5.1 (H) 3.5 - 5.0 [facility] mmol/L [facility] LABORATORY Comment: Please note: ??Patients [...] Organization Address City/State/ZIP Code [place] [address] (ABNORMAL) Hemogram (07/09/2017 2:30 AM EST) Analysis Performed At Patho logist Time Signature WBC 12.5 (H) 4.0 - 9.5 [place] x10(3)/[facility] LABORATORY RBC 3.38 (L) 4.58 - [place] 5.54 [facility] x10(6)/[facility] LABORATORY Hemoglobin 10.1 (L) 13.7 - [facility] 16.5 gm/dL [facility] LABORATORY Hematocrit 30.3 (L) 40.5 - [facility] 48.5 % [facility] LABORATORY MCV 89.6 82.9 - [facility] 93.1 [facility] LABORATORY MCH 29.9 27.5 - [facility] 32.1 pg [facility] LABORATORY MCHC 33.3 32.0 - [place] 35.7 gm/dL [facility] LABORATORY Platelets 127 (L) 145 - 357 [facility] x10(3)/[facility] LABORATORY RDWSD 49.3 (H) 36.0 - [facility] 45.0 [facility] LABORATORY RDWCV 15.2 (H) 11.4 - [facility] 13.8 % [facility] LABORATORY MPV 9.9 7.6 - 12.9 [facility] LABORATORY nRBC % Auto 0.0 % [facility] LABORATORY nRBC Abs Auto 0.000 0.000 - [facility] 0.000 [facility] x10(3)/[facility] LABORATORY Specimen Anatomical Collection Method Collection Time Receive d Time (Source) Location / / Volume Laterality Blood specimen 07/09/2017 2:30 AM 017 2:41 (specimen) EST AM EST Resulting Agency Comment Spec In Lab Yuan Webber MD HEMATOLOGY ORDERABLES Performing Organization Address City/State/[place] [address] [facility] [address] POCT Glucose (07/09/2017 2:10 AM EST) P athologist Signature POC Glucose 169 65 - 199 [facility] mg/dL [facility] LABORATORY Comment: Supplemental ranges: <140 mg/dL before meals <180 mg/dL all other times of the day Specimen Anatomical Collection Method Collection Time Receive d Time (Source) Location / / Volume Laterality Blood specimen 07/09/2017 2:10 AM 017 2:10 (specimen) EST AM EST Yuan Webber MD POINT OF CARE TEST ORDERABLE S Performing Organization Address City/[facility]/ZIP [place] [address] POCT Glucose (07/09/2017 1:01 AM EST) P athologist Signature POC Glucose 173 65 - 199 [facility] mg/dL [facility] LABOR[facility]ORY Comment: Supplemental ranges: <140 mg/dL before meals <180 mg/dL all other times of the day Specimen Anatomical Collection Method Collection Time Receive d Time (Source) Location / / Volume Laterality Blood specimen 07/09/2017 1:01 AM 017 1:01 (specimen) EST AM EST Yuan Webber MD POINT OF CARE TEST ORDERABLE S Performing Organization Address City/State/[place] [address] Blood culture (07/09/2017 12:40 AM EST) Patholo gist Method Time Signature Blood Culture No growth [place] DAVIS at 5 days. [facility] LABORATORY Specimen Anatomical Collection Method Collection Time Receive d Time (Source) Location / / Volume Laterality Blood specimen STRUCTURE OF RIGHT 07/09/2017 12:40 3:58 (specimen) UPPER LIMB / AM EST AM EST Unknown Resulting Agency Comment Spec In Lab Yuan Webber MD MICROBIOLOGY - BLOOD ORDERAB LES Performing Organization Address City/State/[place] [address] Blood culture (07/09/2017 12:30 AM EST) Patholo gist Method Time Signature Blood Culture No growth [place] DAVIS at 5 days. [facility] LABORATORY Specimen Anatomical Collection Method Collection Time Receive d Time (Source) Location / / Volume Laterality Blood specimen STRUCTURE OF LEFT 07/09/2017 12:30 06/25 3:59 (specimen) UPPER LIMB / AM EST AM EST Unknown Resulting Agency Comment Spec In Lab Yuan Webber MD MICROBIOLOGY - BLOOD ORDERAB LES Performing Organization Address City/[facility]/[place] [address] (ABNORMAL) Urinalysis Microscopic Exam (07/09/2017 12:05 AM EST) Analysis Performed At Patho logist Time Signature RBC UA 32 (H) 0 - 3 /HPF [facility] LABORATORY WBC UA 5 (H) 0 - 3 /HPF [facility] LABORATORY Squam Epith UA <1 <=4 /HPF [facility] LABORATORY Hyaline Cast 17 (H) 0 - 2 /LPF [facility] LABORATORY Gran Cast UA 1 (H) <=0 /LPF [facility] LABORATORY Uric Ac Bianca Rare (A) None /HPF [facility] LABORATORY Specimen (Source) Anatomical Collection Method Collection Time Re ceived Time Location / / Volume Laterality Urine specimen 07/09/2017 12:05 7 obtained via AM EST 12:39 AM EST indwelling urinary catheter (specimen) Resulting Agency Comment Spec In Lab Yuan Webber MD URINE ORDERABLES Performing Organization Address City/[facility]/[place] [address] (ABNORMAL) Urinalysis with reflex Culture (07/09/2017 12:05 AM EST) Patholo gist Method Time Signature Glucose UA Negative Negative [facility]dL [facility] Protein UA 30 (A) Negative [facility] mg/dL [facility] LAB[facility]ORY Bilirubin UA Negative Negative [facility] mg/dL [facility] LAB[facility]ATORY Comment: Clinical correlation required for [...] LABORATORY Blood UA Moderate (A) Negative mg/dL [facility] LABORATORY Ketones UA Negative Negative mg/dL [facility] LABORATORY Nitrite UA Negative Negative [facility] LABORATORY Leukocytes UA Negative Negative [facility] LABORATORY Appearance UA Hazy (A) Clear [facility] LABORATORY Spec Virgil UA 1.025 1.002 - 1.030 [facility] LABORATORY Color UA Yellow Yellow [facility] LABORATORY Culture Reflexed No [facility] LABORATORY Specimen (Source) Anatomical Collection Method Collection Time Re ceived Time Location / / Volume Laterality Urine specimen 07/09/2017 12:05 7 obtained via AM EST 12:39 AM EST indwelling urinary catheter (specimen) Resulting Agency Comment Spec In Lab Yuan Webber MD URINE ORDERABLES Performing Organization Address City/[facility]/ZIP [facility] Phon e Number [address] POCT Glucose (07/08/2017 11:01 PM EST) athologist Signature POC Glucose 191 65 - 199 [facility] mg/dL [facility] LABORATORY Comment: Supplemental ranges: <140 mg/dL before meals <180 mg/dL all other times of the day Specimen Anatomical Collection Method Collection Time Receive d Time (Source) Location / / Volume Laterality Blood specimen 07/08/2017 11:01 7 (specimen) PM EST 11:01 PM EST Yuan Webber MD POINT OF CARE TEST ORDERABLE S Performing Organization Address City/State/ZIP Code Phon e Number [address] POCT Glucose (07/08/2017 10:04 PM EST) athologist Signature POC Glucose 198 65 - 199 [facility] mg/dL [facility] LABORATORY Comment: Supplemental ranges: <140 mg/dL before meals <180 mg/dL all other times of the day Specimen Anatomical Collection Method Collection Time Receive d Time (Source) Location / / Volume Laterality Blood specimen 07/08/2017 10:04 7 (specimen) PM EST 10:04 PM EST Yuan Webber MD POINT OF CARE TEST ORDERABLE S Performing Organization Address City/State/ZIP Code Phon e Number [address] Prepare Albumin 5% in 250 mL (07/08/2017 8:49 PM EST) athologist Signature Dispensed? Yes [facility] LABORATORY Specimen Anatomical Collection Method Collection Time Receive d Time (Source) Location / / Volume Laterality Blood specimen No Charge / 07/08/2017 8:49 PM 017 8:51 (specimen) Unknown EST PM EST Resulting Agency Comment Spec In Lab [facility] ORDERABLES Performing Organization Address City/[facility]/[place] [address] POCT Glucose (07/08/2017 8:28 PM EST) athologist Signature POC Glucose 195 65 - 199 [facility] mg/dL [facility] LABORATORY Comment: Supplemental ranges: <140 mg/dL before meals <180 mg/dL all other times of the day Specimen Anatomical Collection Method Collection Time Receive d Time (Source) Location / / Volume Laterality Blood specimen 07/08/2017 8:28 PM 017 8:28 (specimen) EST PM EST Yuan Webber MD POINT OF CARE TEST ORDERABLE S Performing Organization Address City/[facility]/[place] [address] (ABNORMAL) POCT Glucose (07/08/2017 7:13 PM EST) athologist Signature POC Glucose 220 (H) 65 - 199 [place] mg/dL [facility] LABORATORY Comment: Supplemental ranges: <140 mg/dL before meals <180 mg/dL all other times of the day Specimen Anatomical Collection Method Collection Time Receive d Time (Source) Location / / Volume Laterality Blood specimen 07/08/2017 7:13 PM 017 7:13 (specimen) EST PM EST Yuan Webber MD POINT OF CARE TEST ORDERABLE S Performing Organization Address City/State/[place] [address] POCT Glucose (07/08/2017 5:04 PM EST) P athologist Signature POC Glucose 147 65 - 199 [facility] mg/dL [facility] LABORATORY Comment: Supplemental ranges: <140 mg/dL before meals <180 mg/dL all other times of the day Specimen Anatomical Collection Method Collection Time Receive d Time (Source) Location / / Volume Laterality Blood specimen 07/08/2017 5:04 PM 017 5:04 (specimen) EST PM EST Yuan Webber MD POINT OF CARE TEST ORDERABLE S Performing Organization Address City/State/ZIP Code Phon e Number [place] [id number] (ABNORMAL) BLOOD GAS 2 ARTERIAL (07/08/2017 4:13 PM EST) Analysis Performed At Patho logist Time Signature pH Art 7.38 7.35 - [facility] 7.45 [facility] LABORATORY pCO2 Art 36 35 - 45 [facility] LABORATORY pO2 Art 91 85 - 104 [facility] LABORATORY HCO3 Art 20.9 20.0 - [facility] 26.0 [facility] mmol/L [facility] LABORATORY BE Art -4.2 (L) -3.0 - 3.0 [facility] mmol/L [facility] LABORATORY Hgb Blood Gas 11.7 (L) 13.7 - [facility] 16.5 gm/dL [facility] LABORATORY O2HB Art 95.1 94.0 - [facility] 97.0 % [facility] LABORATORY COHB Art 0.6 % [facility] LABORATORY Comment: Nonsmokers: 0.5-1.5% COHB Smokers: Variable, but usually less than 10% Toxic: 20-30% COHB Lethal: Greater than 60% COHB METHB Art 0.6 <=1.5 % [facility] LABORATORY Na Whole Blood 139 135 - 145 mmol/L [facility] LABORATORY K Whole Blood 4.2 3.5 - 5.0 mmol/L [facility] LABORATORY Comment: Please note: Patients with WBC >100,000 may have falsely elevated Potassium levels. Contact the Clinical Chemistry L aboratory if there are any questions. ICa Whole Blood 1.05 (L) 1.15 - 1.33 mmol/L [facility] [...] Lactate WB 1.4 0.5 - 2.2 mmol/L [facility] LABORATORY FIO2 Art 40 % [facility] LABORATORY PF Ratio Art 228 [facility] LABORATORY Specimen Anatomical Collection Method Collection Time Receive d Time (Source) Location / / Volume Laterality Blood specimen 07/08/2017 4:13 PM 017 4:13 (specimen) EST PM EST Yuan Webber MD CHEMISTRY ORDERABLES Performing Organization Address City/State/ZIP Code Phon e Number [address] POCT Glucose (07/08/2017 4:01 PM EST) athologist Signature POC Glucose 148 65 - 199 [facility] mg/dL [facility] LABORATORY Comment: Supplemental ranges: <140 mg/dL before meals <180 mg/dL all other times of the day Specimen Anatomical Collection Method Collection Time Receive d Time (Source) Location / / Volume Laterality Blood specimen 07/08/2017 4:01 PM 017 4:01 (specimen) EST PM EST Yuan Webber MD POINT OF CARE TEST ORDERABLE S Performing Organization Address City/State/[place] [address] POCT Glucose (07/08/2017 3:21 PM EST) P athologist Signature POC Glucose 118 65 - 199 [facility] mg/dL [facility] LABORATORY Comment: Supplemental ranges: <140 mg/dL before meals <180 mg/dL all other times of the day Specimen Anatomical Collection Method Collection Time Receive d Time (Source) Location / / Volume Laterality Blood specimen 07/08/2017 3:21 PM 017 3:21 (specimen) EST PM EST Yuan Webber MD POINT OF CARE TEST ORDERABLE S Performing Organization Address City/State/ZIP Code Phon e Number [address] POCT Glucose (07/08/2017 2:01 PM EST) athologist Signature POC Glucose 129 65 - 199 [place] mg/dL [facility] LABORATORY Comment: Supplemental ranges: <140 mg/dL before meals <180 mg/dL all other times of the day Specimen Anatomical Collection Method Collection Time Receive d Time (Source) Location / / Volume Laterality Blood specimen 07/08/2017 2:01 PM 017 2:01 (specimen) EST PM EST Yuan Webber MD POINT OF CARE TEST ORDERABLE S Performing Organization Address City/State/[place] [address] POCT Glucose (07/08/2017 11:53 AM EST) athologist Signature POC Glucose 156 65 - 199 [place] mg/dL [facility] LABORATORY Comment: Supplemental ranges: <140 mg/dL before meals <180 mg/dL all other times of the day Specimen Anatomical Collection Method Collection Time Receive d Time (Source) Location / / Volume Laterality Blood specimen 07/08/2017 11:53 7 (specimen) AM EST 11:53 AM EST Yuan Webber MD POINT OF CARE TEST ORDERABLE S Performing Organization Address City/State/ZIP Code Phon e Number [address] POCT Glucose (07/08/2017 11:04 AM EST) athologist Signature POC Glucose 181 65 - 199 [facility] SU mg/dL [facility] LABORATORY Comment: Supplemental ranges: <140 mg/dL before meals <180 mg/dL all other times of the day Specimen Anatomical Collection Method Collection Time Receive d Time (Source) Location / / Volume Laterality Blood specimen 07/08/2017 11:04 07/08/201 7 (specimen) AM EST 11:04 AM EST Yuan Webber MD POINT OF CARE TEST ORDERABLE S Performing Organization Address City/[facility]/[place] [address] (ABNORMAL) POCT Glucose (07/08/2017 9:24 AM EST) P athologist Signature POC Glucose 203 (H) 65 - 199 [facility] mg/dL [facility] LABORATORY Comment: Supplemental ranges: <140 mg/dL before meals <180 mg/dL all other times of the day Specimen Anatomical Collection Method Collection Time Receive d Time (Source) Location / / Volume Laterality Blood specimen 07/08/2017 9:24 AM 017 9:24 (specimen) EST AM EST Yuan Webber MD POINT OF CARE TEST ORDERABLE S Performing Organization Address [facility] [place] [address] APTT (07/08/2017 8:40 AM EST) P athologist Signature PTT 33 25 - 35 sec [facility] LABORATORY Comment: The recommended therapeutic range for fu ll dose, unfractionated heparin at [facility] is 80 ? 114 seconds. [...] Address City/[facility]/[place] [address] (ABNORMAL) Prothrombin Time (07/08/2017 [...] Address City/[facility]/[place] [address] (ABNORMAL) POCT Glucose (07/08/2017 7:38 AM EST) P athologist Signature POC Glucose 232 (H) 65 - 199 [facility] mg/dL [facility] LABORATORY Comment: Supplemental ranges: <140 mg/dL before meals <180 mg/dL all other times of the day Specimen Anatomical Collection Method Collection Time Receive d Time (Source) Location / / Volume Laterality Blood specimen 07/08/2017 7:38 AM 017 7:38 (specimen) EST AM EST Yuan Webber MD POINT OF CARE TEST ORDERABLE S Performing Organization Address City/State/[place] [address] (ABNORMAL) POCT Glucose (07/08/2017 7:07 AM EST) P athologist Signature POC Glucose 234 (H) 65 - 199 [facility] mg/dL [facility] LABORATORY Comment: Supplemental ranges: <140 mg/dL before meals <180 mg/dL all other times of the day Specimen Anatomical Collection Method Collection Time Receive d Time (Source) Location / / Volume Laterality Blood specimen 07/08/2017 7:07 AM 017 7:07 (specimen) EST AM EST Yuan Webber MD POINT OF CARE TEST ORDERABLE S Performing Organization Address City/State/[place] [address] (ABNORMAL) POCT Glucose (07/08/2017 6:04 AM EST) athologist Signature POC Glucose 225 (H) 65 - 199 [facility] mg/dL [facility] LABORATORY Comment: Supplemental ranges: <140 mg/dL before meals <180 mg/dL all other times of the day Specimen Anatomical Collection Method Collection Time Receive d Time (Source) Location / / Volume Laterality Blood specimen 07/08/2017 6:04 AM 017 6:04 (specimen) EST AM EST Yuan Webber MD POINT OF CARE TEST ORDERABLE S Performing Organization Address City/[facility]/[place] [address] (ABNORMAL) POCT Glucose (07/08/2017 5:31 AM EST) athologist Signature POC Glucose 216 (H) 65 - 199 [facility] mg/dL [facility] LABORATORY Comment: Supplemental ranges: <140 mg/dL before meals <180 mg/dL all other times of the day Specimen Anatomical Collection Method Collection Time Receive d Time (Source) Location / / Volume Laterality Blood specimen 07/08/2017 5:31 AM 017 5:31 (specimen) EST AM EST Yuan Webber MD POINT OF CARE TEST ORDERABLE S Performing Organization Address City/[facility]/[place] [address] (ABNORMAL) POCT Glucose (07/08/2017 4:52 AM EST) athologist Signature POC Glucose 257 (H) 65 - 199 [facility] mg/dL [facility] LABORATORY Comment: Supplemental ranges: <140 mg/dL before meals <180 mg/dL all other times of the day Specimen Anatomical Collection Method Collection Time Receive d Time (Source) Location / / Volume Laterality Blood specimen 07/08/2017 4:52 AM 017 4:52 (specimen) EST AM EST Daphne Shahid MD POINT OF CARE TEST ORDERABLE S Performing Organization Address City/State/[place] [address] (ABNORMAL) BLOOD GAS 2 ARTERIAL (07/08/2017 4:04 AM EST) Analysis Performed At Patho logist Time Signature pH Art 7.30 (L) 7.35 - [facility] 7.45 [facility] LABORATORY pCO2 Art 41 35 - 45 [facility] mmHg [facility] LABORATORY pO2 Art 83 (L) 85 - 104 [facility] LABORATORY HCO3 Art 19.6 (L) 20.0 - [facility] 26.0 [facility] mmol/[facility] LABORATORY BE Art -6.8 (L) -3.0 - 3.0 [facility] mmol/L [facility] LABORATORY Hgb Blood Gas 12.2 (L) 13.7 - [facility] 16.5 gm/dL [facility] O2HB Art 93.5 (L) 94.0 - [facility] 97.0 % [facility] LABORATORY COHB Art 0.4 % [facility] LABORATORY Comment: Nonsmokers: 0.5-1.5% COHB Smokers: Variable, but usually less than 10% Toxic: 20-30% COHB Lethal: Greater than 60% COHB METHB Art 0.8 <=1.5 % [facility] LABORATORY Na Whole Blood 138 135 - 145 mmol/L [facility] LABORATORY K Whole Blood 4.4 3.5 - 5.0 mmol/L [facility] LABORATORY Comment: Please note: Patients with WBC >100,000 may have falsely elevated Potassium levels. Contact the Clinical Chemistry L aboratory if there are any questions. ICa Whole Blood 1.05 (L) 1.15 - 1.33 mmol/L [facility] [...] [facility] LABORATORY Comment: Noted by instrument and electrical technician. FIO2 Art 40 % [facility] LABORATORY PF Ratio Art 208 [facility] LABORATORY Specimen Anatomical Collection Method Collection Time Receive d Time (Source) Location / / Volume Laterality Blood specimen 07/08/2017 4:04 AM 017 4:04 (specimen) EST AM EST Daphne Shahid MD CHEMISTRY ORDERABLES Performing Organization Address City/[facility]/ZIP Code Phon e Number [address] Scan, Peripheral Blood (07/08/2017 4:00 AM EST) P athologist Signature Plat Estimate Normal [facility] LABORATORY RBC Morphology Normal [facility] LABORATORY Specimen Anatomical Collection Method Collection Time Receive d Time (Source) Location / / Volume Laterality Blood specimen 07/08/2017 4:00 AM 017 4:09 (specimen) EST AM EST Resulting Agency Comment Spec In Lab Yuan Webber MD HEMATOLOGY ORDERABLES Performing Organization Address City/[facility]/Z[place] [address] (ABNORMAL) Differential, Automated (07/08/2017 4:00 AM EST) Patholo gist Method Time Signature Neutrophils % 85.4 % [facility] LABORATORY Neutr Abs (ANC) 16.07 (H) 1.70 - [facility] 6.10 [facility] x10(3)/[facility] L LABORATORY Lymphocytes % 3.5 % [facility] LABORATORY Lymphocytes Abs 0.6 (L) 0.9 - 3.2 [facility] x10(3)/[facility] LABORATORY Monocytes % 10.4 % [facility] LABORATORY Monocyte Abs 2.0 (H) 0.3 - 0.9 [facility] x10(3)/[facility] LABORATORY Eosinophils % 0.0 % [facility] LABORATORY Eosinophils Abs 0.0 0.0 - 0.4 [facility] x10(3)/[facility] LABORATORY Basophils % 0.1 % [facility] LABORATORY Basophils Abs 0.0 0.0 - 0.1 [facility] x10(3)/[facility] LABORATORY Immature Gran % 0.60 % [place] [...] Organization Address City/State/[place] [address] (ABNORMAL) Hemogram (07/08/2017 4:00 AM EST) Analysis Performed At Patho logist Time Signature WBC 18.8 (H) 4.0 - 9.5 [facility] x10(3)/[facility] LABORATORY RBC 4.00 (L) 4.58 - [facility] 5.54 [facility] x10(6)/[facility] LABORATORY Hemoglobin 11.9 (L) 13.7 - [facility] 16.5 gm/dL [facility] LABORATORY Hematocrit 35.9 (L) 40.5 - [facility] 48.5 % [facility] LABORATORY MCV 89.8 82.9 - [facility] 93.1 [facility] LABORATORY MCH 29.8 27.5 - [facility] 32.1 pg [facility] LABORATORY MCHC 33.1 32.0 - [facility] 35.7 gm/dL [facility]ORY Platelets 232 145 - 357 [place] [facility] x[facility] LABORATORY RDWSD 47.6 (H) 36.0 - [facility] 45.0 [facility] LABORATORY RDWCV 14.5 (H) 11.4 - [facility] 13.8 % [facility] LABORATORY MPV 9.5 7.6 - 12.9 [facility] LABORATORY nRBC % Auto 0.0 % [facility] LABORATORY nRBC Abs Auto 0.000 0.000 - [facility] 0.000 [facility] x10(3)/[facility] LABORATORY Specimen Anatomical Collection Method Collection Time Receive d Time (Source) Location / / Volume Laterality Blood specimen 07/08/2017 4:00 AM 017 4:09 (specimen) EST AM EST Resulting Agency Comment Spec In Lab Yuan Webber MD HEMATOLOGY ORDERABLES Performing Organization Address City/[facility] [place] [address] (ABNORMAL) Electrolytes panel (07/08/2017 4:00 AM EST) P athologist Signature Sodium 139 135 - 145 [facility] mmol/[facility] LABORATORY Potassium 4.7 3.5 - 5.0 [facility] mmol/[facility] LABORATORY Comment: result rechecked-JLK Please note: ??Patients [...] - 15 mmol/L [facility] LABORATORY Specimen Anatomical Collection Method Collection Time Receive d Time (Source) Location / / Volume Laterality Blood specimen 07/08/2017 4:00 AM 017 4:10 (specimen) EST AM EST Resulting Agency Comment Spec In Lab Yuan Webber MD CHEMISTRY ORDERABLES Performing Organization Address City/[facility] [place] [address] (ABNORMAL) Cardiac Enzymes (LEB/CGP) (07/08/2017 4:00 AM EST) athologist Signature Troponin-T 1.88 (H) 0.00 - [facility] 0.00 ng/mL [facility] LABORATORY Comment: The 99th percentile [...] additional sample may be indicated. Reference: Third [place] Definition of Myocardial Infarction. Journal of the [place] [employer] 2012;60:1581-98 CK, Total 413 (H) 0 - 200 unit/L [facility] LABORATORY Comment: result rechecked-JLK Specimen Anatomical Collection Method Collection Time Receive d Time (Source) Location / / Volume Laterality Blood specimen 07/08/2017 4:00 AM 017 4:09 (specimen) EST AM EST Resulting Agency Comment Spec In Lab Yuan Webber MD CHEMISTRY ORDERABLES Performing Organization Address City/State/[place] [address] (ABNORMAL) Glucose, fasting (07/08/2017 4:00 AM EST) athologist Signature Glucose 287 (H) 65 - 99 [facility] Fasting mg/dL [facility] LABORATORY Comment: ?Fasting* Glucose Interpretive [...] of Diabetes Mellitus, Position Statement from the [place] [employer]. ??Diabete s Care, Volume 33, Supplement 1, Jul 2009 Specimen Anatomical Collection Method Collection Time Receive d Time (Source) Location / / Volume Laterality Blood specimen 07/08/2017 4:00 AM 017 4:09 (specimen) EST AM EST Resulting Agency Comment Spec In Lab Yuan Webber MD CHEMISTRY ORDERABLES Performing Organization Address City/[facility] [place] [address] (ABNORMAL) Creatinine (07/08/2017 4:00 AM EST) Analysis Performed At [facility] Time Signature Creatinine 1.55 (H) 0.80 [facility] 1.[facility] mg/dL [facility] LABORATORY Estimated GFR 44 (L) >=60 [facility] LABORATORY Comment: The reported eGFR should be multiplied b y 1.2 for patients. The MDRD is not an appropriate measure o f renal function for patients with body mass extremes or in patients with acute kidney failure. http://ChemoCentryx.Zaplee/DHnkdep http://ChemoCentryx.Zaplee/DHMCnkf Specimen Anatomical Collection Method Collection Time Receive d Time (Source) Location / / Volume Laterality Blood specimen 07/08/2017 4:00 AM 017 4:09 (specimen) EST AM EST Resulting Agency Comment Spec In Lab Yuan Webber MD CHEMISTRY ORDERABLES Performing Organization Address [facility]/ZIP [facility] Phon e Number [address] BUN (07/08/2017 4:00 AM EST) athologist Signature BUN 16 10 - 20 [place] mg/dL [facility] LABORATORY Specimen Anatomical Collection Method Collection Time Receive d Time (Source) Location / / Volume Laterality Blood specimen 07/08/2017 4:00 AM 017 4:09 (specimen) EST AM EST Resulting Agency Comment Spec In Lab Yuan Webber MD CHEMISTRY ORDERABLES Performing Organization Address City/State/ZIP Code Phon e Number [address] (ABNORMAL) POCT Glucose (07/08/2017 3:00 AM EST) athologist Signature POC Glucose 273 (H) 65 - 199 [place] ZHAOSU mg/dL [facility] LABORATORY Comment: Supplemental ranges: <140 mg/dL before meals <180 mg/dL all other times of the day Specimen Anatomical Collection Method Collection Time Receive d Time (Source) Location / / Volume Laterality Blood specimen 07/08/2017 3:00 AM 017 3:00 (specimen) EST AM EST Daphne Shahid MD POINT OF CARE TEST ORDERABLE S Performing Organization Address City/State/[place] [address] (ABNORMAL) POCT Glucose (07/08/2017 1:57 AM EST) athologist Signature POC Glucose 288 (H) 65 - 199 [facility]dL [facility] LAB[facility]ATORY Comment: Supplemental ranges: <140 mg/dL before meals <180 mg/dL all other times of the day Specimen Anatomical Collection Method Collection Time Receive d Time (Source) Location / / Volume Laterality Blood specimen 07/08/2017 1:57 AM 017 1:57 (specimen) EST AM EST Daphne Shahid MD POINT OF CARE TEST ORDERABLE S Performing Organization Address City/State/[place] [address] (ABNORMAL) POCT Glucose (07/08/2017 1:01 AM EST) athologist Signature POC Glucose 315 (H) 65 - 199 [facility] mg/dL [facility] LABORATORY Comment: Supplemental ranges: <140 mg/dL before meals <180 mg/dL all other times of the day Specimen Anatomical Collection Method Collection Time Receive d Time (Source) Location / / Volume Laterality Blood specimen 07/08/2017 1:01 AM 017 1:01 (specimen) EST AM EST Daphne Shahid MD POINT OF CARE TEST ORDERABLE S Performing Organization Address City/State/[place] [address] (ABNORMAL) BLOOD GAS 2 ARTERIAL (07/08/2017 12:09 AM EST) athologist Signature pH Art 7.26 7.35 - [facility] (Critical) 7.45 [facility] LABORATORY Comment: Noted by instrument and electrical technician. pCO2 Art 41 35 - 45 mmHg [facility] LABORATORY pO2 Art 96 85 - 104 mmHg [facility] LABORATORY HCO3 Art 17.7 (L) 20.0 - 26.0 mmol/L [facility] LABORATORY BE Art -9.4 (L) -3.0 - 3.0 mmol/L [facility] LABORATORY Hgb Blood Gas 12.4 (L) 13.7 - 16.5 gm/dL [facility] LABORATORY O2HB Art 94.7 94.0 - 97.0 % [facility] LABORATORY COHB Art 0.2 % [facility] LABORATORY Comment: Nonsmokers: 0.5-1.5% COHB Smokers: Variable, but usually less than 10% Toxic: 20-30% COHB Lethal: Greater than 60% COHB METHB Art 0.6 <=1.5 % [facility] LABORATORY Na Whole Blood 141 135 - 145 mmol/L [facility] LABORATORY K Whole Blood 3.5 3.5 - 5.0 mmol/L [facility] LABORATORY Comment: Please note: Patients with WBC >100,000 may have falsely elevated Potassium levels. Contact the Clinical Chemistry L aboratory if there are any questions. ICa Whole Blood 1.03 (L) 1.15 - 1.33 mmol/L [facility] [...] [facility] LABORATORY Comment: Noted by instrument and electrical technician. FIO2 Art 40 % [facility] LABORATORY PF Ratio Art 240 [facility] LABORATORY Specimen Anatomical Collection Method Collection Time Receive d Time (Source) Location / / Volume Laterality Blood specimen Arterial Draw / 07/08/2017 12:09 2016 5:31 (specimen) Unknown AM EST AM EST Resulting Agency Comment Spec In Lab Samy Maldonado MD CHEMISTRY ORDERABLES Performing Organization Address City/[facility]/[place] [address] (ABNORMAL) POCT Glucose (07/07/2017 10:56 PM EST) P athologist Signature POC Glucose 292 (H) 65 - 199 [facility] mg/dL [facility] LABORATORY Comment: Supplemental ranges: <140 mg/dL before meals <180 mg/dL all other times of the day Specimen Anatomical Collection Method Collection Time Receive d Time (Source) Location / / Volume Laterality Blood specimen 07/07/2017 10:56 7 (specimen) PM EST 10:56 PM EST Daphne Shahid MD POINT OF CARE TEST ORDERABLE S Performing Organization Address City/State/[place] [address] (ABNORMAL) BLOOD GAS 2 ARTERIAL (07/07/2017 10:04 PM EST) P athologist Signature pH Art 7.22 7.35 - [facility] (Critical) 7.45 [facility] LABORATORY Comment: Noted by instrument and electrical technician. pCO2 Art 42 35 - 45 mmHg [facility] LABORATORY pO2 Art 94 85 - 104 mmHg [facility] LABORATORY HCO3 Art 16.9 (L) 20.0 - 26.0 mmol/L [facility] LABORATORY BE Art -10.7 (L) -3.0 - 3.0 mmol/L [facility] LABORATORY Hgb Blood Gas 13.0 (L) 13.7 - 16.5 gm/dL [facility] LABORATORY O2HB Art 93.8 (L) 94.0 - 97.0 % [facility] LABORATORY COHB Art 0.7 % [facility] [...] Blood 1.07 (L) 1.15 - 1.33 mmol/L [facility] [...] [facility] Comment: Noted by instrument and electrical technician. FIO2 Art 40 % [facility] LABORATORY PF Ratio Art 235 [facility] LABORATORY Specimen Anatomical Collection Method Collection Time Receive d Time (Source) Location / / Volume Laterality Blood specimen 07/07/2017 10:04 7 (specimen) PM EST 10:04 PM EST Daphne Shahid MD CHEMISTRY ORDERABLES Performing Organization Address City/[facility]/[place] [address] (ABNORMAL) Hemoglobin (07/07/2017 10:00 PM EST) athologist [facility] Hemoglobin 12.8 (L) 13.7 - [place] 16.5 gm/dL [facility] LABORATORY Specimen Anatomical Collection Method Collection Time Receive d Time (Source) Location / / Volume Laterality Blood specimen 07/07/2017 10:00 7 (specimen) PM EST 10:13 PM EST Resulting Agency Comment Spec In Lab Yuan Webber MD HEMATOLOGY ORDERABLES Performing Organization Address City/[facility] [place] [address] (ABNORMAL) Potassium (07/07/2017 10:00 PM EST) athologist [facility] Potassium 3.4 (L) 3.5 - 5.0 [facility] mmol/L [facility] LABORATORY Comment: Please note: ??Patients [...] Address City/[facility]/[place] [address] (ABNORMAL) POCT Glucose (07/07/2017 8:49 PM EST) athologist [facility] POC Glucose 241 (H) 65 - 199 [facility] mg/dL [facility] LAB[facility]ORY Comment: Supplemental ranges: <140 mg/dL before meals <180 mg/dL all other times of the day Specimen Anatomical Collection Method Collection Time Receive d Time (Source) Location / / Volume Laterality Blood specimen 07/07/2017 8:49 PM 017 8:49 (specimen) EST PM EST Daphne Shahid MD POINT OF CARE TEST ORDERABLE S Performing Organization Address City/[facility]/[place] [address] Prepare Albumin 5% in 250 mL (07/07/2017 8:03 PM EST) P athologist Signature Dispensed? Yes [facility] LABORATORY Specimen Anatomical Collection Method Collection Time Receive d Time (Source) Location / / Volume Laterality Blood specimen No Charge / 07/07/2017 8:03 PM 017 8:04 (specimen) Unknown EST PM EST Resulting Agency Comment Spec In Lab Michael Drake PA BLOOD BANK ORDERABLES Performing Organization Address [facility] [place] [address] EKG 12 Lead (07/07/2017 7:17 PM EST) Component Value Ref Range Test Analysis Performed Pathologis t Method Time At Signature Ventricular rate 75 BPM MUSE SYSTEM Atrial Rate 75 BPM MUSE SYSTEM P-R Interval 168 ms MUSE SYSTEM QRS Duration 104 ms MUSE SYSTEM Q-T Interval 462 ms MUSE SYSTEM QTC Calculated 515 ms MUSE SYSTEM (Bezet) Calculated P [place] 52 degrees MUSE SYSTEM Calculated R [place] -40 degrees MUSE SYSTEM Calculated T [place] 39 degrees MUSE SYSTEM INTERPRETATION Normal sinus [...] Webber MD ECG ORDERABLES Performing Organization Address City/[facility]/ZIP Code Phon e Number MUSE SYSTEM [...] 7.35 - [place] (Critical) 7.45 [facility] LABORATORY Comment: Noted by instrument and electrical technician. pCO2 Art 50 (H) 35 - 45 mmHg [facility] LABORATORY pO2 Art 238 (H) 85 - 104 mmHg [facility] LABORATORY HCO3 Art 19.8 (L) 20.0 - 26.0 mmol/L [facility] LABORATORY BE Art -8.1 (L) -3.0 - 3.0 mmol/L [facility] LABORATORY Hgb Blood Gas 12.8 (L) 13.7 - 16.5 gm/dL [facility] LABORATORY O2HB Art 97.5 (H) 94.0 - 97.0 % [facility] LABORATORY COHB Art 0.5 % [facility] [...] [facility] LABORATORY Comment: Noted by instrument and electrical technician. Please note: Patients with WBC >100,000 may have falsely elevated Potassium levels. Contact the Clinical Chemistry L aboratory if there are any questions. ICa Whole Blood 1.07 (L) 1.15 - 1.33 mmol/L [facility] [...] [facility] Comment: Noted by instrument and electrical technician. FIO2 Art 100 % [facility] LABORAT[facility] PF Ratio Art 238 [facility] LABORATORY Specimen Anatomical Collection Method Collection Time Receive d Time (Source) Location / / Volume Laterality Blood specimen 07/07/2017 6:57 PM 017 6:57 (specimen) EST PM EST Daphne Shahid MD CHEMISTRY ORDERABLES Performing Organization Address City/State/[place] [address] (ABNORMAL) BLOOD GAS 2 ARTERIAL (07/07/2017 5:31 PM EST) P athologist Signature pH Art 7.29 7.35 - [facility] (Critical) 7.45 [facility] LABORATORY Comment: Noted by instrument and electrical technician. pCO2 Art 48 (H) 35 - 45 mmHg [facility] LABORATORY pO2 Art 137 (H) 85 - 104 mmHg [facility] LABORATORY HCO3 Art 22.4 20.0 - 26.0 mmol/L [facility] LABORATORY BE Art -4.3 (L) -3.0 - 3.0 mmol/L [facility] LABORATORY Hgb Blood Gas 10.0 (L) 13.7 - 16.5 gm/dL [facility] LABORATORY O2HB Art 97.3 (H) 94.0 - 97.0 % [facility] LABORATORY COHB Art 0.3 % [facility] [...] Blood 1.14 (L) 1.15 - 1.33 mmol/L [facility] [...] Shahid MD CHEMISTRY ORDERABLES Performing Organization Address [facility] Phon e Number [address] Fibrinogen (07/07/2017 5:30 PM EST) athologist Signature Fibrinogen 224 180 - 510 [facility] mg/dL [facility] LABORATORY Comment: Called by: JEET, Read [...] Perez MD HEMATOLOGY ORDERABLES Performing Organization Address [facility] Phon e Number [address] APTT (07/07/2017 5:30 PM EST) athologist Signature PTT 30 25 - 35 sec [facility] LABORATORY Comment: The recommended therapeutic range for fu ll dose, unfractionated heparin at [facility] is 80 ? 114 seconds. [...] Address City/[facility]/[place] [address] (ABNORMAL) Prothrombin Time (07/07/2017 [...] Address City/[facility]/[place] [address] (ABNORMAL) Hemogram (07/07/2017 5:30 PM EST) P athologist Signature WBC 19.6 (H) 4.0 - 9.5 [facility] x10(3)/[facility] LABORATORY RBC 3.08 (L) 4.58 - [facility] 5.54 [facility] x10(6)/[facility] LABORATORY Hemoglobin 9.2 (L) 13.7 - [facility] 16.5 gm/dL [facility] LABORATORY Hematocrit 28.0 (L) 40.5 - [facility] 48.5 % [facility] LABORATORY Comment: This result has been called to MONICAVeda MORAN by DONALD GROSSMAN on 07 07 2017 at 1759, and has been read back. MCV 90.9 82.9 - 93.1 fL [facility] LABORATORY MCH 29.9 27.5 - 32.1 pg [facility] LABORATORY MCHC 32.9 32.0 - 35.7 gm/dL [facility] LABORATORY Platelets 155 145 - 357 x10(3)/[facility] LABORATORY RDWSD 46.5 (H) 36.0 - 45.0 [facility] LABORATORY RDWCV 14.1 (H) 11.4 - 13.8 % [facility] LABORATORY MPV 9.5 7.6 - 12.9 fL [facility] LABORATORY nRBC % Auto 0.0 % [facility] LABORATORY nRBC Abs Auto 0.000 0.000 - 0.000 x10(3)/[facility] LABORATORY Specimen Anatomical Collection Method Collection Time Receive d Time (Source) Location / / Volume Laterality Blood specimen 07/07/2017 5:30 PM 017 5:34 (specimen) EST PM EST Resulting Agency Comment Spec In Lab Yifan Perez MD HEMATOLOGY ORDERABLES Performing Organization Address City/[facility]/ZIP Code Phon e Number [address] Prepare Platelets, Apheresis (07/07/2017 5:00 PM EST) athologist Signature Dispensed? Yes [facility] LABORATORY Specimen Anatomical Collection Method Collection Time Receive d Time (Source) Location / / Volume Laterality Blood specimen 07/07/2017 5:00 PM 017 4:58 (specimen) EST PM EST Daphne Shahid MD BLOOD BANK ORDERABLES Performing Organization Address City/[facility]/ZIP [facility] Phon [place] Number [address] Platelet count (07/07/2017 4:55 PM EST) P athologist Signature Platelets 177 145 - 357 [facility] x10(3)/[facility] LABORATORY Plat Immature 1.5 0.0 - 7.4 [facility] % [facility] LABORATORY Comment: Limitation of the Immature Platelet Frac tion (IPF)-May be less reliable when the platelet count is less than 73d783/u L due to statistical imprecision. The IPF [...] in a decreased state of production. References: [employer] The Clinical Value of the Immature Platelet Fraction (IPF) in Cell Recovery Document Number [id number] 12/2010 [employer] The Role of the Imm ature [...] City/State/ZIP Code Phon e Number [place] [id number] HOSP[address] LABORATORY Drive (ABNORMAL) Hemoglobin and Hematocrit, blood (07/07/2017 4:55 PM EST) P athologist Signature Hemoglobin 9.1 (L) 13.7 - 16.5 [facility] gm/dL [facility] LABORATORY Comment: This result has been called to MALKA MORAN by DONALD GROSSMAN on 07 07 2017 at 1734, and has been read back. Hematocrit 26.6 (L) 40.5 - 48.5 % [facility] LABORATORY Comment: This result has been [...] Organization Address City/State/[place] [address] (ABNORMAL) BLOOD GAS 2 ARTERIAL (07/07/2017 4:38 PM EST) Analysis Performed At Patho logist Time Signature pH Art 7.37 7.35 - [facility] 7.45 [facility] LABORATORY pCO2 Art 44 35 - 45 [facility] mmHg [facility] LABORATORY pO2 Art 322 (H) 85 - 104 [facility] LABORATORY HCO3 Art 24.9 20.0 - [facility] 26.0 [facility] mmol/[facility] LABORATORY BE Art -0.4 -3.0 - 3.0 [facility] mmol/L [facility] LABORATORY Hgb Blood Gas 10.1 (L) 13.7 - [facility] 16.5 gm/dL [facility] O2HB Art 98.7 (H) 94.0 - [facility] 97.0 % [facility] LABORATORY COHB Art 0.1 % [facility] LABORATORY Comment: [...] Blood 0.89 (Critical) 1.15 - 1.33 mmol/L [facility] LABORATORY Comment: Noted by instrument and electrical technician. Note: ??Total bilirubin higher than 20 m g/dL may lead to falsely low ionized calcium. CL Whole Blood 101 98 - 107 mmol/L [facility] LABORATORY Gluc Whole Bld 295 (H) 65 - 199 mg/dL [facility] LABORATORY Comment: Diabetes: >=200 mg/dL plus symp toms. Lactate WB 1.7 0.5 - 2.2 mmol/L [facility] LABORATORY Specimen Anatomical Collection Method Collection Time Receive d Time (Source) Location / / Volume Laterality Blood specimen 07/07/2017 4:38 PM 017 4:38 (specimen) EST PM EST Daphne Shahid MD CHEMISTRY ORDERABLES Performing Organization Address City/State/[place] [address] (ABNORMAL) BLOOD GAS 2 VENOUS (07/07/2017 4:06 PM EST) Analysis Performed At Patho logist Time Signature pH Cody 7.31 (L) 7.32 - [facility] 7.42 [facility] LABORATORY pCO2 Cody 47 41 - 51 [facility] LABORATORY pO2 Cody 53 (H) 25 - 40 [facility] LABORATORY HCO3 Cody 22.7 mmol/L [facility] LABORATORY BE Cody -3.7 mmol/L [facility] LABORATORY Hgb Blood Gas 10.2 (L) 13.7 - [facility] 16.5 gm/dL [facility] LABORATORY O2HB Cody 81.0 % [facility] LABORATORY COHB Cody 1.0 % [facility] LABORATORY Comment: [...] Blood 0.90 (Critical) 1.15 - 1.33 mmol/L [facility] LABORATORY Comment: Noted by instrument and electrical technician. Note: ??Total bilirubin higher than 20 m g/dL may lead to falsely low ionized calcium. CL Whole Blood 100 98 - 107 mmol/L [facility] LABORATORY Gluc Whole Bld 231 (H) 65 - 199 mg/dL [facility] LABORATORY Comment: Diabetes: >=200 mg/dL plus symp toms Lactate WB 1.1 0.5 - 2.2 mmol/L [facility] LABORATORY BGas Source Venous [facility] LABORATORY Specimen Anatomical Collection Method Collection Time Receive d Time (Source) Location / / Volume Laterality Blood specimen 07/07/2017 4:06 PM 017 4:06 (specimen) EST PM EST Daphne Shahid MD CHEMISTRY ORDERABLES Performing Organization Address City/State/[place] [address] (ABNORMAL) BLOOD GAS 2 ARTERIAL (07/07/2017 4:05 PM EST) Analysis Performed At Patho logist Time Signature pH Art 7.36 7.35 - [facility] 7.45 [facility] LABORATORY pCO2 Art 40 35 - 45 [facility] LABORATORY pO2 Art 282 (H) 85 - 104 [facility] LABORATORY HCO3 Art 22.1 20.0 - [facility] 26.0 [facility] mmol/[facility] LABORATORY BE Art -3.4 (L) -3.0 - 3.0 [facility] mmol/L [facility] LABORATORY Hgb Blood Gas 10.2 (L) 13.7 - [facility] 16.5 gm/dL [facility] LABORATORY O2HB Art 98.4 (H) 94.0 - [facility] 97.0 % [facility] LABORATORY COHB Art 0.3 % [facility] LABORATORY Comment: [...] Blood 0.86 (Critical) 1.15 - 1.33 mmol/L [facility] LABORATORY Comment: Noted by instrument and electrical technician. Note: ??Total bilirubin higher than 20 m g/dL may lead to falsely low ionized calcium. CL Whole Blood 101 98 - 107 mmol/L [facility] LABORATORY Gluc Whole Bld 260 (H) 65 - 199 mg/dL [facility] Comment: Diabetes: >=200 mg/dL plus symp toms. Lactate WB 1.4 0.5 - 2.2 mmol/L [facility] Specimen Anatomical Collection Method Collection Time Receive d Time (Source) Location / / Volume Laterality Blood specimen 07/07/2017 4:05 PM 017 4:05 (specimen) EST PM EST Daphne Shahid MD CHEMISTRY ORDERABLES Performing Organization Address City/State/[place] [address] (ABNORMAL) BLOOD GAS 2 ARTERIAL (07/07/2017 2:29 PM EST) Analysis Performed At Patho logist Time Signature pH Art 7.43 7.35 - [facility] 7.45 [facility] pCO2 Art 36 35 - 45 [facility] mmHg [facility] pO2 Art 221 (H) 85 - 104 [facility]ORATORY HCO3 Art 23.2 20.0 - [facility] 26.0 [facility] mmol/L [facility] BE Art -1.2 -3.0 - 3.0 [facility] mmol/L [facility] Hgb Blood Gas 13.9 13.7 - [facility] 16.5 gm/dL [facility] O2HB Art 97.8 (H) 94.0 - [facility] 97.0 % [facility] COHB Art 1.1 % [facility] Comment: Nonsmokers: 0.5-1.5% COHB Smokers: Variable, but usually less than 10% Toxic: 20-30% COHB Lethal: Greater than 60% COHB METHB Art 0.3 <=1.5 % [facility] Na Whole Blood 139 135 - 145 mmol/L [facility] K Whole Blood 4.0 3.5 - 5.0 mmol/L [facility] Comment: Please note: Patients with WBC >100,000 may have falsely elevated Potassium levels. Contact the Clinical Chemistry L aboratory if there are any questions. ICa Whole Blood 1.11 (L) 1.15 - 1.33 mmol/L [facility] Comment: Note: ??Total bilirubin higher than 20 m g/dL may lead to falsely low ionized calcium. CL Whole Blood 104 98 - 107 mmol/L [facility] Gluc Whole Bld 184 65 - 199 mg/dL [facility] Comment: Diabetes: >=200 mg/dL plus symp toms. Lactate WB 1.5 0.5 - 2.2 mmol/L [facility] Specimen Anatomical Collection Method Collection Time Receive d Time (Source) Location / / Volume Laterality Blood specimen 07/07/2017 2:29 PM 017 2:29 (specimen) EST PM EST Daphne Shahid MD CHEMISTRY ORDERABLES Performing Organization Address City/[facility]/ZIP [place] [address] Prepare Coag Factors (Non-Hemophilia) (07/07/2017 1:25 PM EST) P athologist Signature Dispensed? Yes [facility] Specimen Anatomical Collection Method Collection Time Receive d Time (Source) Location / / Volume Laterality Blood specimen 07/07/2017 1:25 PM 017 1:21 (specimen) EST PM EST Daphne Shahid MD BLOOD BANK ORDERABLES Performing Organization Address City/[facility]/ZIP [place] [address] Prepare RBC (07/07/2017 1:10 PM EST) P athologist Signature Dispensed? Yes [facility] Specimen Anatomical Collection Method Collection Time Receive d Time (Source) Location / / Volume Laterality Blood specimen 07/07/2017 1:10 PM 017 1:05 (specimen) EST PM EST Daphne Shahid MD BLOOD BANK ORDERABLES Performing Organization Address City/[facility]/ZIP Code Phon e Number [address] POCT Glucose (07/07/2017 11:56 AM EST) P athologist Signature POC Glucose 188 65 - 199 [place] mg/dL [facility] Comment: Supplemental ranges: <140 mg/dL before meals <180 mg/dL all other times of the day Specimen Anatomical Collection Method Collection Time Receive d Time (Source) Location / / Volume Laterality Blood specimen 07/07/2017 11:56 7 (specimen) AM EST 11:56 AM EST Daphne Shahid MD POINT OF CARE TEST ORDERABLE S Performing Organization Address City/[facility]/ZIP Code Phon e Number [address] POCT Glucose (07/07/2017 11:05 AM EST) P athologist Signature POC Glucose 168 65 - 199 [place] mg/dL [facility] Comment: Supplemental ranges: <140 mg/dL before meals <180 mg/dL all other times of the day Specimen Anatomical Collection Method Collection Time Receive d Time (Source) Location / / Volume Laterality Blood specimen 07/07/2017 11:05 7 (specimen) AM EST 11:05 AM EST Daphne Shahid MD POINT OF CARE TEST ORDERABLE S Performing Organization Address City/[facility]/ZIP Code Phon e Number [address] POCT Glucose (07/07/2017 10:02 AM EST) P athologist Signature POC Glucose 191 65 - 199 [place] mg/dL [facility] Comment: Supplemental ranges: <140 mg/dL before meals <180 mg/dL all other times of the day Specimen Anatomical Collection Method Collection Time Receive d Time (Source) Location / / Volume Laterality Blood specimen 07/07/2017 10:02 7 (specimen) AM EST 10:02 AM EST Daphne Shahid MD POINT OF CARE TEST ORDERABLE S Performing Organization Address City/State/ZIP Code Phon e Number [address] POCT Glucose (07/07/2017 7:53 AM EST) athologist Signature POC Glucose 178 65 - 199 [place] mg/dL [facility] Comment: Supplemental ranges: <140 mg/dL before meals <180 mg/dL all other times of the day Specimen Anatomical Collection Method Collection Time Receive d Time (Source) Location / / Volume Laterality Blood specimen 07/07/2017 7:53 AM 017 7:53 (specimen) EST AM EST Daphne Shahid MD POINT OF CARE TEST ORDERABLE S Performing Organization Address City/[facility]/ZIP Code Phon e Number [address] POCT Glucose (07/07/2017 7:03 AM EST) athologist Signature POC Glucose 188 65 - 199 [facility] SU mg/dL [facility] Comment: Supplemental ranges: <140 mg/dL before meals <180 mg/dL all other times of the day Specimen Anatomical Collection Method Collection Time Receive d Time (Source) Location / / Volume Laterality Blood specimen 07/07/2017 7:03 AM 017 7:03 (specimen) EST AM EST Daphne Shahid MD POINT OF CARE TEST ORDERABLE S Performing Organization Address City/State/ZIP Code Phon e Number [address] (ABNORMAL) POCT Glucose (07/07/2017 6:17 AM EST) athologist Signature POC Glucose 207 (H) 65 - 199 [facility] SU mg/dL [facility] Comment: Supplemental ranges: <140 mg/dL before meals <180 mg/dL all other times of the day Specimen Anatomical Collection Method Collection Time Receive d Time (Source) Location / / Volume Laterality Blood specimen 07/07/2017 6:17 AM 017 6:17 (specimen) EST AM EST Daphne Shahid MD POINT OF CARE TEST ORDERABLE S Performing Organization Address City/State/ZIP Code Phon e Number [place] [id number] LAB[address]ORY [address] Differential, Automated (07/07/2017 5:15 AM EST) P athologist Signature Neutrophils % 69.7 % [facility] Neutr Abs (ANC) 5.32 1.70 - [facility] 6.10 [facility] x10(3)/[facility] LABORATORY Lymphocytes % 16.3 % [facility] Lymphocytes Abs 1.2 0.9 - 3.2 [facility] x10(3)/[facility] LABORATORY Monocytes % 10.5 % [facility] Monocyte Abs 0.8 0.3 - 0.9 [facility] x10(3)/[facility] LABORATORY Eosinophils % 2.5 % [facility] Eosinophils Abs 0.2 0.0 - 0.4 [facility] x10(3)/[facility] LABORATORY Basophils % 0.7 % [facility] Basophils Abs 0.0 0.0 - 0.1 [facility] x10(3)/[facility] LABORATORY Immature Gran % 0.30 % [place] [...] Melisa Gran Abs 0.02 0.00 - 0.04 x10(3)/[facility] MAR Y [facility] Specimen Anatomical Collection Method Collection Time Receive d Time (Source) Location / / Volume Laterality Blood specimen 07/07/2017 5:15 AM 017 5:34 (specimen) EST AM EST Resulting Agency Comment Spec In Lab Daphne Shahid MD HEMATOLOGY ORDERABLES Performing Organization Address City/State/[place] [address] (ABNORMAL) Hemogram (07/07/2017 5:15 AM EST) Analysis Performed At Patho logist Time Signature WBC 7.6 4.0 - 9.5 [facility] x10(3)/[facility] LABORATORY RBC 4.82 4.58 - [place] 5.54 [facility] x10(6)/[facility] LABORATORY Hemoglobin 14.4 13.7 - [facility] 16.[facility] gm/dL [facility] Hematocrit 42.1 40.5 - [facility] 48.5 % [facility] MCV 87.3 82.9 - [facility] 93.1 [facility] LABORATORY MCH 29.9 27.5 - [facility] 32.1 pg [facility] MCHC 34.2 32.0 - [facility] 35.7 gm/dL [facility] Platelets 188 145 - 357 [facility] x10(3)/[facility] LABORATORY RDWSD 45.1 (H) 36.0 - [facility] 45.0 [facility] LABORATORY RDWCV 14.3 (H) 11.4 - [facility] 13.8 % [facility] MPV 9.4 7.6 - 12.9 [facility] LABORATORY nRBC % Auto 0.0 % [facility] nRBC Abs Auto 0.000 0.000 - [facility] 0.000 [facility] x10(3)/[facility] LABORATORY Specimen Anatomical Collection Method Collection Time Receive d Time (Source) Location / / Volume Laterality Blood specimen 07/07/2017 5:15 AM 017 5:34 (specimen) EST AM EST Resulting Agency Comment Spec In Lab Daphne Shahid MD HEMATOLOGY ORDERABLES Performing Organization Address City/State/[place] [address] (ABNORMAL) APTT (07/07/2017 5:15 AM EST) P athologist Signature PTT 69 (H) 25 - 35 sec [facility] Comment: The recommended therapeutic range for fu ll dose, unfractionated heparin at [facility] is 80 ? 114 seconds. [...] Address City/[facility]/ZIP Code Phon e Number [address] Magnesium (07/07/2017 5:15 AM EST) athologist Signature Magnesium 0.94 0.69 - 1.07 [facility] mmol/L [facility] Specimen Anatomical Collection Method Collection Time Receive d Time (Source) Location / / Volume Laterality Blood specimen 07/07/2017 5:15 AM 017 5:34 (specimen) EST AM EST Resulting Agency Comment Spec In Lab Daphne Shahid MD CHEMISTRY ORDERABLES Performing Organization Address City/[facility] [place] [address] (ABNORMAL) Basic Metabolic Panel (non-fasting) (07/07/2017 5:15 AM EST) athologist Signature Glucose Lvl 203 (H) 65 - 199 [facility] mg/dL [facility] Comment: Diabetes: >=200 mg/dL plus symp toms BUN 15 10 - 20 mg/dL [facility] Creatinine 1.09 0.80 - [...] or in patients with acute kidney failure. [email or web address] [email or web address] Specimen Anatomical Collection Method Collection Time Receive d Time (Source) Location / / Volume Laterality Blood specimen 07/07/2017 5:15 AM 017 5:34 (specimen) EST AM EST Resulting Agency Comment Spec In Lab Daphne Shahid MD CHEMISTRY ORDERABLES Performing Organization Address City/State/[place] [address] (ABNORMAL) Cardiac Enzymes (LEB/CGP) (07/07/2017 5:15 AM EST) P athologist Signature Troponin-T 2.07 (H) 0.00 - [facility] 0.00 ng/mL [facility] Comment: The 99th percentile [...] additional sample may be indicated. Reference: Third [place] Definition of Myocardial Infarction. Journal of the [place] [employer] 2012;60:1581-98 CK, Total 88 0 - 200 unit/L [facility] Specimen Anatomical Collection Method Collection Time Receive d Time (Source) Location / / Volume Laterality Blood specimen 07/07/2017 5:15 AM 017 5:34 (specimen) EST AM EST Resulting Agency Comment Spec In Lab Daphne Shahid MD CHEMISTRY ORDERABLES Performing Organization Address City/[facility]/ZIP [facility] Phon e Number [address] POCT Glucose (07/07/2017 5:01 AM EST) athologist Signature POC Glucose 182 65 - 199 [facility] Comment: Supplemental ranges: <140 mg/dL before meals <180 mg/dL all other times of the day Specimen Anatomical Collection Method Collection Time Receive d Time (Source) Location / / Volume Laterality Blood specimen 07/07/2017 5:01 AM 017 5:01 (specimen) EST AM EST Daphne Shahid MD POINT OF CARE TEST ORDERABLE S Performing Organization Address City/[facility]/[place] [address] POCT Glucose (07/07/2017 4:08 AM EST) athologist Signature POC Glucose 199 65 - 199 [facility] Comment: Supplemental ranges: <140 mg/dL before meals <180 mg/dL all other times of the day Specimen Anatomical Collection Method Collection Time Receive d Time (Source) Location / / Volume Laterality Blood specimen 07/07/2017 4:08 AM 017 4:08 (specimen) EST AM EST Daphne Shahid MD POINT OF CARE TEST ORDERABLE S Performing Organization Address City/[facility]/ZIP Code Phon e Number [address] POCT Glucose (07/07/2017 3:03 AM EST) athologist Signature POC Glucose 188 65 - 199 [facility] Comment: Supplemental ranges: <140 mg/dL before meals <180 mg/dL all other times of the day Specimen Anatomical Collection Method Collection Time Receive d Time (Source) Location / / Volume Laterality Blood specimen 07/07/2017 3:03 AM 017 3:03 (specimen) EST AM EST Daphne Shahid MD POINT OF CARE TEST ORDERABLE S Performing Organization Address City/State/[place] [address] (ABNORMAL) POCT Glucose (07/07/2017 2:08 AM EST) athologist Signature POC Glucose 200 (H) 65 - 199 [facility]dL [facility] Comment: Supplemental ranges: <140 mg/dL before meals <180 mg/dL all other times of the day Specimen Anatomical Collection Method Collection Time Receive d Time (Source) Location / / Volume Laterality Blood specimen 07/07/2017 2:08 AM 017 2:08 (specimen) EST AM EST Daphne Shahid MD POINT OF CARE TEST ORDERABLE S Performing Organization Address City/State/[place] [address] (ABNORMAL) POCT Glucose (07/07/2017 1:31 AM EST) athologist Signature POC Glucose 209 (H) 65 - 199 [facility]dL [facility] Comment: Supplemental ranges: <140 mg/dL before meals <180 mg/dL all other times of the day Specimen Anatomical Collection Method Collection Time Receive d Time (Source) Location / / Volume Laterality Blood specimen 07/07/2017 1:31 AM 017 1:31 (specimen) EST AM EST Daphne Shahid MD POINT OF CARE TEST ORDERABLE S Performing Organization Address City/State/[place] [address] XR Chest PA or [...] Signature POC Glucose 161 65 - 199 [facility] mg/dL [facility] Comment: Supplemental ranges: <140 mg/dL before meals <180 mg/dL all other times of the day Specimen Anatomical Collection Method Collection Time Receive d Time (Source) Location / / Volume Laterality Blood specimen 07/07/2017 12:07 7 (specimen) AM EST 12:07 AM EST Daphne Shahdi MD POINT OF CARE TEST ORDERABLE S Performing Organization Address City/State/[place] [address] (ABNORMAL) APTT (07/07/2017 12:00 AM EST) P athologist Signature PTT 103 (H) 25 - 35 sec [facility] Comment: The recommended therapeutic range for fu ll dose, unfractionated heparin at [facility] is 80 ? 114 seconds. [...] Address City/[facility]/ZIP Code Phon e Number [address] POCT Glucose (07/06/2017 9:55 PM EST) athologist Signature POC Glucose 109 65 - 199 [facility]/dL [facility] Comment: Supplemental ranges: <140 mg/dL before meals <180 mg/dL all other times of the day Specimen Anatomical Collection Method Collection Time Receive d Time (Source) Location / / Volume Laterality Blood specimen 07/06/2017 9:55 PM 017 9:55 (specimen) EST PM EST Daphne Shahid MD POINT OF CARE TEST ORDERABLE S Performing Organization Address City/[facility]/ZIP Code Phon e Number [address] POCT Glucose (07/06/2017 9:04 PM EST) athologist Signature POC Glucose 120 65 - 199 [facility]dL [facility] Comment: Supplemental ranges: <140 mg/dL before meals <180 mg/dL all other times of the day Specimen Anatomical Collection Method Collection Time Receive d Time (Source) Location / / Volume Laterality Blood specimen 07/06/2017 9:04 PM 017 9:04 (specimen) EST PM EST Daphne Shahid MD POINT OF CARE TEST ORDERABLE S Performing Organization Address City/[facility]/ZIP Code Phon e Number [address] POCT Glucose (07/06/2017 7:45 PM EST) athologist Signature POC Glucose 158 65 - 199 [facility]/dL [facility] Comment: Supplemental ranges: <140 mg/dL before meals <180 mg/dL all other times of the day Specimen Anatomical Collection Method Collection Time Receive d Time (Source) Location / / Volume Laterality Blood specimen 07/06/2017 7:45 PM 017 7:45 (specimen) EST PM EST Daphne Shahid MD POINT OF CARE TEST ORDERABLE S Performing Organization Address City/[facility]/ZIP [facility] [place] [address] Potassium (07/06/2017 7:40 PM EST) athologist [facility] Potassium 3.9 3.5 - 5.0 [facility] mmol/L [facility] Comment: Please note: ??Patients [...] MD CHEMISTRY ORDERABLES Performing Organization Address City/[facility] [place] [address] (ABNORMAL) Cardiac Enzymes (LEB/CGP) (07/06/2017 7:40 PM EST) athologist [facility] Troponin-T 2.27 (H) 0.00 - [place] 0.00 ng/mL [facility] Comment: The 99th percentile [...] additional sample may be indicated. Reference: Third [place] Definition of Myocardial Infarction. Journal of the [place] [employer] 2012;60:1581-98 CK, Total 93 0 - 200 unit/L [facility] Specimen Anatomical Collection Method Collection Time Receive d Time (Source) Location / / Volume Laterality Blood specimen 07/06/2017 7:40 PM 017 7:52 (specimen) EST PM EST Resulting Agency Comment Spec In Lab Daphne Shahid MD CHEMISTRY ORDERABLES Performing Organization Address City/[facility]/[place] [address] (ABNORMAL) POCT Glucose (07/06/2017 7:13 PM EST) P athologist Signature POC Glucose 200 (H) 65 - 199 [facility] mg/dL [facility] Comment: Supplemental ranges: <140 mg/dL before meals <180 mg/dL all other times of the day Specimen Anatomical Collection Method Collection Time Receive d Time (Source) Location / / Volume Laterality Blood specimen 07/06/2017 7:13 PM 017 7:13 (specimen) EST PM EST Daphne Shahid MD POINT OF CARE TEST ORDERABLE S Performing Organization Address City/[facility]/[place] [address] (ABNORMAL) APTT (07/06/2017 6:15 PM EST) P athologist Signature PTT 94 (H) 25 - 35 sec [facility] Comment: The recommended therapeutic range for fu ll dose, unfractionated heparin at [facility] is 80 ? 114 seconds. [...] Address City/[facility]/ZIP Code Phon e Number [address] (ABNORMAL) POCT Glucose (07/06/2017 6:03 PM EST) athologist Signature POC Glucose 236 (H) 65 - 199 [facility] mg/dL [facility] Comment: Supplemental ranges: <140 mg/dL before meals <180 mg/dL all other times of the day Specimen Anatomical Collection Method Collection Time Receive d Time (Source) Location / / Volume Laterality Blood specimen 07/06/2017 6:03 PM 017 6:03 (specimen) EST PM EST Daphne Shahid MD POINT OF CARE TEST ORDERABLE S Performing Organization Address City/[facility]/[place] [address] (ABNORMAL) POCT Glucose (07/06/2017 5:01 PM EST) P athologist Signature POC Glucose 235 (H) 65 - 199 [facility]dL [facility] Comment: Supplemental ranges: <140 mg/dL before meals <180 mg/dL all other times of the day Specimen Anatomical Collection Method Collection Time Receive d Time (Source) Location / / Volume Laterality Blood specimen 07/06/2017 5:01 PM 017 5:01 (specimen) EST PM EST Daphne Shahid MD POINT OF CARE TEST ORDERABLE S Performing Organization Address City/State/[place] [address] (ABNORMAL) POCT Glucose (07/06/2017 4:06 PM EST) athologist Signature POC Glucose 202 (H) 65 - 199 [facility] mg/dL [facility] Comment: Supplemental ranges: <140 mg/dL before meals <180 mg/dL all other times of the day Specimen Anatomical Collection Method Collection Time Receive d Time (Source) Location / / Volume Laterality Blood specimen 07/06/2017 4:06 PM 017 4:06 (specimen) EST PM EST Daphne Shahid MD POINT OF CARE TEST ORDERABLE S Performing Organization Address City/[facility]/ZIP [facility] [place] [address] POCT Glucose (07/06/2017 2:59 PM EST) athologist Signature POC Glucose 178 65 - 199 [facility] mg/dL [facility] Comment: Supplemental ranges: <140 mg/dL before meals <180 mg/dL all other times of the day Specimen Anatomical Collection Method Collection Time Receive d Time (Source) Location / / Volume Laterality Blood specimen 07/06/2017 2:59 PM 017 2:59 (specimen) EST PM EST Daphne Shahid MD POINT OF CARE TEST ORDERABLE S Performing Organization Address City/[facility] [place] [address] (ABNORMAL) Cardiac Enzymes (LEB/CGP) (07/06/2017 2:10 PM EST) athologist Signature Troponin-T 2.34 (H) 0.[address] [facility] ng/mL [facility] Comment: The 99th percentile [...] additional sample may be indicated. Reference: Third [place] Definition of Myocardial Infarction. Journal of the [place] [employer] 2012;60:1581-98 CK, Total 101 0 - 200 unit/L [facility] Specimen Anatomical Collection Method Collection Time Receive d Time (Source) Location / / Volume Laterality Blood specimen 07/06/2017 2:10 PM 017 2:26 (specimen) EST PM EST Resulting Agency Comment Spec In Lab Daphne Shahid MD CHEMISTRY ORDERABLES Performing Organization Address City/[facility]/ZIP Code Phon e Number [address] LABORATORY Drive POCT Glucose (07/06/2017 2:08 PM EST) athologist Signature POC Glucose 192 65 - [address] [facility] mg[facility]dL [facility] Comment: Supplemental ranges: <140 mg/dL before meals <180 mg/dL all other times of the day Specimen Anatomical Collection Method Collection Time Receive d Time (Source) Location / / Volume Laterality Blood specimen 07/06/2017 2:08 PM 017 2:08 (specimen) EST PM EST Daphne Shahid MD POINT OF CARE TEST ORDERABLE S Performing Organization Address City/[facility]/ZIP [facility] Phon e Number [address] POCT Glucose (07/06/2017 1:04 PM EST) athologist Signature POC Glucose 162 65 - 199 [facility]dL [facility] Comment: Supplemental ranges: <140 mg/dL before meals <180 mg/dL all other times of the day Specimen Anatomical Collection Method Collection Time Receive d Time (Source) Location / / Volume Laterality Blood specimen 07/06/2017 1:04 PM 017 1:04 (specimen) EST PM EST Daphne Shahid MD POINT OF CARE TEST ORDERABLE S Performing Organization Address City/State/ZIP Code Phon e Number [address] POCT Glucose (07/06/2017 12:05 PM EST) P athologist Signature POC Glucose 196 65 - 199 [facility] mg/dL [facility] Comment: Supplemental ranges: <140 mg/dL before meals <180 mg/dL all other times of the day Specimen Anatomical Collection Method Collection Time Receive d Time (Source) Location / / Volume Laterality Blood specimen 07/06/2017 12:05 7 (specimen) PM EST 12:05 PM EST Daphne Shahid MD POINT OF CARE TEST ORDERABLE S Performing Organization Address City/[facility]/ZIP [place] [address] EKG 12 Lead (07/06/2017 12:00 PM EST) Component Value Ref Range Test Analysis Performed Pathologis t Method Time At Signature Ventricular rate 91 BPM MUSE SYSTEM Atrial Rate 91 BPM MUSE SYSTEM P-R Interval 140 ms MUSE SYSTEM QRS Duration 94 ms MUSE SYSTEM Q-T Interval 394 ms MUSE SYSTEM QTC Calculated 484 ms MUSE SYSTEM (Bezet) Calculated P [place] 36 degrees MUSE SYSTEM Calculated R [place] -19 degrees MUSE SYSTEM Calculated T [place] 104 degrees MUSE SYSTEM INTERPRETATION Normal sinus rhythm MUSE SYSTEM 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) ST & T wave abnormality, consider lateral ischemia Abnormal ECG When compared with ECG of 05-JUL-2017 20:39, No significant change was found Confirmed by MD Luci, Taurus Braun ([id number]) on 07/06/2017 5:07:33 PM Specimen Anatomical Collection Method Collection Time Receive d Time (Source) Location / / Volume Laterality 07/06/2017 12:00 07/06/2017 5:07 PM EST PM EST Authorizing Provider Result Mikaela Shahid MD ECG ORDERABLES Performing Organization Address City/State/ZIP Code Phon e Number MUSE SYSTEM ABORH Recheck Status (07/06/2017 12:00 PM EST) [facility] Method Time Signature ABORH Type Completed [facility] LABORATORY Specimen Anatomical Collection Method Collection Time Receive d Time (Source) Location / / Volume Laterality Blood specimen 07/06/2017 12:00 7 (specimen) PM EST 12:24 PM EST Resulting Agency Comment Spec In Lab Daphne Shahid MD BLOOD BANK ORDERABLES Performing Organization Address City/State/[place] [address] Antibody screen (07/06/2017 12:00 PM EST) [facility] Method [place] Signature Ab Screen Negative [facility] LABORATORY Expires at 07/09/2017 [facility] 2356 on: [facility] Specimen Anatomical Collection Method Collection Time Receive d Time (Source) Location / / Volume Laterality Blood specimen 07/06/2017 12:00 7 (specimen) PM EST 12:24 PM EST Resulting Agency Comment Spec In Lab Daphne Shahid MD BLOOD BANK ORDERABLES Performing Organization Address City/State/[place] [address] ABO/Rh Typing (07/06/2017 12:00 [...] Address City/[facility]/[place] [address] Prothrombin Time (07/06/2017 11:24 AM EST) P athologist Signature PT 13.3 11.8 - 14.0 [facility] LABORATORY INR 1.0 0.9 - 1.1 [facility] [...] Address City/[facility]/[place] [address] (ABNORMAL) APTT (07/06/2017 11:24 AM EST) P athologist Signature PTT 52 (H) 25 - 35 sec [facility] Comment: The recommended therapeutic range for fu ll dose, unfractionated heparin at [facility] is 80 ? 114 seconds. [...] Address City/[facility]/[place] [address] POCT Glucose (07/06/2017 11:02 AM EST) P athologist Signature POC Glucose 187 65 - 199 [facility] mg/dL [facility] Comment: Supplemental ranges: <140 mg/dL before meals <180 mg/dL all other times of the day Specimen Anatomical Collection Method Collection Time Receive d Time (Source) Location / / Volume Laterality Blood specimen 07/06/2017 11:02 7 (specimen) AM EST 11:02 AM EST Daphne Shahid MD POINT OF CARE TEST ORDERABLE S Performing Organization Address City/State/[place] [address] POCT Glucose (07/06/2017 10:18 AM EST) athologist Signature POC Glucose 193 65 - 199 [facility] mg/dL [facility] Comment: Supplemental ranges: <140 mg/dL before meals <180 mg/dL all other times of the day Specimen Anatomical Collection Method Collection Time Receive d Time (Source) Location / / Volume Laterality Blood specimen 07/06/2017 10:18 7 (specimen) AM EST 10:18 AM EST Daphne Shahid MD POINT OF CARE TEST ORDERABLE S Performing Organization Address City/State/ZIP Code Phon e Number [address] POCT Glucose (07/06/2017 9:25 AM EST) athologist Signature POC Glucose 182 65 - 199 [place] mg/dL [facility] Comment: Supplemental ranges: <140 mg/dL before meals <180 mg/dL all other times of the day Specimen Anatomical Collection Method Collection Time Receive d Time (Source) Location / / Volume Laterality Blood specimen 07/06/2017 9:25 AM 017 9:25 (specimen) EST AM EST Daphne Shahid MD POINT OF CARE TEST ORDERABLE S Performing Organization Address City/State/[place] [address] (ABNORMAL) Cardiac Enzymes (LEB/CGP) (07/06/2017 8:10 AM EST) athologist Signature Troponin-T 2.26 (H) 0.00 - [facility] 0.00 ng/mL [facility] Comment: The 99th percentile [...] additional sample may be indicated. Reference: Third [place] Definition of Myocardial Infarction. Journal of the [place] [employer] 2012;60:1581-98 CK, Total 124 0 - 200 unit/L [facility] Specimen Anatomical Collection Method Collection Time Receive d Time (Source) Location / / Volume Laterality Blood specimen 07/06/2017 8:10 AM 017 8:23 (specimen) EST AM EST Resulting Agency Comment Spec In Lab Daphne Shahid MD CHEMISTRY ORDERABLES Performing Organization Address City/[facility]/ZIP Code Phon e Number [address] Magnesium (07/06/2017 8:10 AM EST) P athologist Signature Magnesium 0.84 0.69 - 1.07 [facility] mmol/L [facility] Specimen Anatomical Collection Method Collection Time Receive d Time (Source) Location / / Volume Laterality Blood specimen 07/06/2017 8:10 AM 017 8:21 (specimen) EST AM EST Resulting Agency Comment Spec In Lab Daphne Shahid MD CHEMISTRY ORDERABLES Performing Organization Address City/[facility]/[place] [address] (ABNORMAL) Basic Metabolic Panel (non-fasting) (07/06/2017 8:10 AM EST) athologist Signature Glucose Lvl 199 65 - 199 [facility] mg/dL [facility] Comment: Diabetes: >=200 mg/dL plus symp toms BUN 16 10 - 20 mg/dL [facility] Creatinine 1.04 0.80 - [...] or in patients with acute kidney failure. [email or web address] [email or web address] [email or web address] [email or web address] Specimen Anatomical Collection Method Collection Time Receive d Time (Source) Location / / Volume Laterality Blood specimen 07/06/2017 8:10 AM 017 8:21 (specimen) EST AM EST Resulting Agency Comment Spec In Lab Daphne Shahid MD CHEMISTRY ORDERABLES Performing Organization Address City/State/[place] [address] POCT Glucose (07/06/2017 7:34 AM EST) P athologist Signature POC Glucose 198 65 - 199 [facility] mg/dL [facility] Comment: Supplemental ranges: <140 mg/dL before meals <180 mg/dL all other times of the day Specimen Anatomical Collection Method Collection Time Receive d Time (Source) Location / / Volume Laterality Blood specimen 07/06/2017 7:34 AM 017 7:34 (specimen) EST AM EST Daphne Shahid MD POINT OF CARE TEST ORDERABLE S Performing Organization Address City/State/ZIP Code Phon e Number [address] POCT Glucose (07/06/2017 7:03 AM EST) P athologist Signature POC Glucose 181 65 - 199 [facility] mg/dL [facility] Comment: Supplemental ranges: <140 mg/dL before meals <180 mg/dL all other times of the day Specimen Anatomical Collection Method Collection Time Receive d Time (Source) Location / / Volume Laterality Blood specimen 07/06/2017 7:03 AM 017 7:03 (specimen) EST AM EST Daphne Shahid MD POINT OF CARE TEST ORDERABLE S Performing Organization Address City/State/[place] [address] XR Chest PA or [...] Signature POC Glucose 172 65 - 199 [facility] mg/dL [facility] Comment: Supplemental ranges: <140 mg/dL before meals <180 mg/dL all other times of the day Specimen Anatomical Collection Method Collection Time Receive d Time (Source) Location / / Volume Laterality Blood specimen 07/06/2017 6:21 AM 017 6:21 (specimen) EST AM EST Daphne Shahid MD POINT OF CARE TEST ORDERABLE S Performing Organization Address City/[facility]/ZIP [place] [address] POCT Glucose (07/06/2017 5:08 AM EST) athologist Signature POC Glucose 154 65 - 199 [facility] Comment: Supplemental ranges: <140 mg/dL before meals <180 mg/dL all other times of the day Specimen Anatomical Collection Method Collection Time Receive d Time (Source) Location / / Volume Laterality Blood specimen 07/06/2017 5:08 AM 017 5:08 (specimen) EST AM EST Daphne Shahid MD POINT OF CARE TEST ORDERABLE S Performing Organization Address City/State/[place] [address] POCT Glucose (07/06/2017 4:05 AM EST) athologist Signature POC Glucose 142 65 - 199 [facility]/dL [facility] Comment: Supplemental ranges: <140 mg/dL before meals <180 mg/dL all other times of the day Specimen Anatomical Collection Method Collection Time Receive d Time (Source) Location / / Volume Laterality Blood specimen 07/06/2017 4:05 AM 017 4:05 (specimen) EST AM EST Daphen Shahid MD POINT OF CARE TEST ORDERABLE S Performing Organization Address City/[facility]/ZIP Code Phon e Number [address] POCT Glucose (07/06/2017 3:00 AM EST) athologist Signature POC Glucose 116 65 - [address] [facility]dL [facility] Comment: Supplemental ranges: <140 mg/dL before meals <180 mg/dL all other times of the day Specimen Anatomical Collection Method Collection Time Receive d Time (Source) Location / / Volume Laterality Blood specimen 07/06/2017 3:00 AM 017 3:00 (specimen) EST AM EST Daphne Shahid MD POINT OF CARE TEST ORDERABLE S Performing Organization Address City/[facility]/ZIP [place] [address] Potassium (07/06/2017 2:20 AM EST) athologist Signature Potassium 3.9 3.5 - 5.0 [facility] mmol/L [facility] Comment: Please note: ??Patients [...] Address City/[facility]/ZIP Code Phon e Number [place] [phone] HOSPITAL LAB[address]ORY [address] Differential, Automated (07/06/2017 2:20 AM EST) P athologist Signature Neutrophils % 72.9 % [facility] Neutr Abs (ANC) 5.53 1.70 - [facility] 6.10 [facility] x10(3)/[facility] LABORATORY Lymphocytes % 16.4 % [facility] Lymphocytes Abs 1.2 0.9 - 3.2 [facility] x10(3)/[facility] LABORATORY Monocytes % 9.4 % [facility] Monocyte Abs 0.7 0.3 - 0.9 [facility] x10(3)/[facility] LABORATORY Eosinophils % 0.5 % [facility] Eosinophils Abs 0.0 0.0 - 0.4 [facility] x10(3)/[facility] LABORATORY Basophils % 0.4 % [facility] Basophils Abs 0.0 0.0 - 0.1 [facility] x10(3)/[facility] LABORATORY Immature Gran % 0.40 % [...] Melisa Gran Abs 0.03 0.00 - 0.04 x10(3)/[facility] MAR Y [facility]OR[facility] Specimen Anatomical Collection Method Collection Time Receive d Time (Source) Location / / Volume Laterality Blood specimen 07/06/2017 2:20 AM 017 2:33 (specimen) EST AM EST Resulting Agency Comment Spec In Lab Daphne Shahid MD HEMATOLOGY ORDERABLES Performing Organization Address City/State/ZIP Code Phon e Number [place] [phone]OSP[address] LAB[address]ORY Drive (ABNORMAL) Hemogram (07/06/2017 2:20 AM EST) Analysis Performed At Patho logist Time Signature WBC 7.6 4.0 - 9.5 [facility] x10(3)/[facility] LABORATORY RBC 4.52 (L) 4.58 - [facility] 5.54 [facility] x10(6)/[facility] LABORATORY Hemoglobin 13.4 (L) 13.7 - [facility] 16.5 gm/dL [facility] Hematocrit 39.7 (L) 40.5 - [facility] 48.5 % [facility] MCV 87.8 82.9 - [facility] 93.1 [facility] LABORATORY MCH 29.6 27.5 - [facility] 32.1 pg [facility] MCHC 33.8 32.0 [facility] 35.7 gm/dL [facility] Platelets 189 145 - 357 [facility] x10(3)/[facility] LABORATORY RDWSD 45.6 (H) 36.0 - [facility] 45.0 [facility] LABORATORY RDWCV 14.3 (H) 11.4 - [facility] 13.8 % [facility] MPV 9.1 7.6 - 12.9 [facility] LABORATORY nRBC % Auto 0.0 % [facility] LAB[facility] nRBC Abs Auto 0.000 0.000 - [facility] 0.000 [facility] x10(3)/[facility] LABORATORY Specimen Anatomical Collection Method Collection Time Receive d Time (Source) Location / / Volume Laterality Blood specimen 07/06/2017 2:20 AM 017 2:33 (specimen) EST AM EST Resulting Agency Comment Spec In Lab Daphne Shahid MD HEMATOLOGY ORDERABLES Performing Organization Address City/State/[place] [address] (ABNORMAL) APTT (07/06/2017 2:20 AM EST) P athologist Signature PTT 52 (H) 25 - 35 sec [facility] Comment: The recommended therapeutic range for fu ll dose, unfractionated heparin at [facility] is 80 ? 114 seconds. [...] Address City/State/ZIP Code Phon e Number [address] POCT Glucose (07/06/2017 2:20 AM EST) athologist Signature POC Glucose 115 65 - 199 [facility] mg/dL [facility] Comment: Supplemental ranges: <140 mg/dL before meals <180 mg/dL all other times of the day Specimen Anatomical Collection Method Collection Time Receive d Time (Source) Location / / Volume Laterality Blood specimen 07/06/2017 2:20 AM 017 2:20 (specimen) EST AM EST Daphne Shahid MD POINT OF CARE TEST ORDERABLE S Performing Organization Address City/[facility]/[place] [address] (ABNORMAL) Cardiac Enzymes (LEB/CGP) (07/06/2017 2:20 AM EST) athologist [facility] Troponin-T 2.13 (H) 0.00 - [place] 0.00 ng/mL [facility] Comment: The 99th percentile [...] additional sample may be indicated. Reference: Third [place] Definition of Myocardial Infarction. Journal of the [place] [employer] 2012;60:1581-98 CK, Total 129 0 - 200 unit/L [facility] Specimen Anatomical Collection Method Collection Time Receive d Time (Source) Location / / Volume Laterality Blood specimen 07/06/2017 2:20 AM 017 2:33 (specimen) EST AM EST Resulting Agency Comment Spec In Lab Daphne Shahid MD CHEMISTRY ORDERABLES Performing Organization Address City/State/ZIP Code Phon e Number [place] [phone]OS[address] LAB[address] Drive (ABNORMAL) Hemoglobin A1c (07/06/2017 [...] Mellitus, Diabetes Care 2013; 36: Suppl. 1, S67-77 Est Avg Gluc See note mg/dL [place] [...] with hemoglobinopathies. Additional resources are available on [facility] ADA website. Macario HAMMOND, Ruthann J, Deysi R, et al. ??Tr anslating the A1C assay into estimated average glucose values. ??Diabetes Care 2008:31(8):8983-7450. Specimen Anatomical Collection Method Collection Time Receive d Time (Source) Location / / Volume Laterality Blood specimen 07/06/2017 2:20 AM 017 2:34 (specimen) EST AM EST Resulting Agency Comment Spec In Lab Daphne Shahid MD CHEMISTRY ORDERABLES Performing Organization Address City/State/Z[place] [address] (ABNORMAL) Lipid Panel (07/06/2017 2:20 AM EST) [facility] Method Time Signature Chol, Total 150 <=239 [place] mg/dL [facility] Triglycerides 129 <=199 [place] mg/dL [facility] HDL 32 (L) >=40 [place] mg/dL [facility] LDL Cholesterol 92 <=190 [place] mg/dL [facility] Chol/HDL Ratio 4.7 ratio [facility] Lipid See Note [place] Interpretation [facility] Comment: Lipid management should be guided by a p atient? s ASCVD risk, goals and preferences. ACC/AHA Guidelines recommend high intens ity statin if clinical ASCVD or LDL greater than or equal to 190 mg/dL. [email or web address] [email or web address]/CVP-MBW-Cxscdvzgc Adults aged 40-75 with LDL 70-189 mg/dL should have their 10 year ASCVD risk estimated with the ACC/AHA ASCVD risk es timator http://tools.acc.org/FMLSM-Xonm-Cwwsiqsj r/ Statin should be discussed if risk [...] CHEMISTRY ORDERABLES Performing Organization Address City/[facility]/ZIP [facility] [place] Phon [place] Number [address] POCT Glucose (07/06/2017 1:09 AM EST) athologist Signature POC Glucose 121 65 - 199 [facility] Comment: Supplemental ranges: <140 mg/dL before meals <180 mg/dL all other times of the day Specimen Anatomical Collection Method Collection Time Receive d Time (Source) Location / / Volume Laterality Blood specimen 07/06/2017 1:09 AM 017 1:09 (specimen) EST AM EST Daphne Shahid MD POINT OF CARE TEST ORDERABLE S Performing Organization Address City/[facility]/ZIP [facility] [place] Phon [place] Number [address] POCT Glucose (07/06/2017 12:06 AM EST) P athologist Signature POC Glucose 147 65 - 199 [facility]dL [facility] Comment: Supplemental ranges: <140 mg/dL before meals <180 mg/dL all other times of the day Specimen Anatomical Collection Method Collection Time Receive d Time (Source) Location / / Volume Laterality Blood specimen 07/06/2017 12:06 7 (specimen) AM EST 12:06 AM EST Daphne Shahid MD POINT OF CARE TEST ORDERABLE S Performing Organization Address City/State/[place] [address] (ABNORMAL) POCT Glucose (07/05/2017 10:56 PM EST) athologist Signature POC Glucose 200 (H) 65 - 199 [place] mg/dL [facility] Comment: Supplemental ranges: <140 mg/dL before meals <180 mg/dL all other times of the day Specimen Anatomical Collection Method Collection Time Receive d Time (Source) Location / / Volume Laterality Blood specimen 07/05/2017 10:56 7 (specimen) PM EST 10:56 PM EST Daphne Shahid MD POINT OF CARE TEST ORDERABLE S Performing Organization Address City/State/[place] [address] (ABNORMAL) POCT Glucose (07/05/2017 10:05 PM EST) athologist Signature POC Glucose 225 (H) 65 - 199 [place] mg/dL [facility] Comment: Supplemental ranges: <140 mg/dL before meals <180 mg/dL all other times of the day Specimen Anatomical Collection Method Collection Time Receive d Time (Source) Location / / Volume Laterality Blood specimen 07/05/2017 10:05 7 (specimen) PM EST 10:05 PM EST Daphne Shahid MD POINT OF CARE TEST ORDERABLE S Performing Organization Address City/State/[place] [address] (ABNORMAL) POCT Glucose (07/05/2017 9:02 PM EST) athologist Signature POC Glucose 301 (H) 65 - 199 [place] mg/dL [facility] Comment: Supplemental ranges: <140 mg/dL before meals <180 mg/dL all other times of the day Specimen Anatomical Collection Method Collection Time Receive d Time (Source) Location / / Volume Laterality Blood specimen 07/05/2017 9:02 PM 017 9:02 (specimen) EST PM EST Daphne Shahid MD POINT OF CARE TEST ORDERABLE S Performing Organization Address City/State/ZIP Code Phon e Number [place] [phone]OSP[address] Drive XR Chest PA or [...] 474 ms MUSE SYSTEM (Bezet) Calculated P [place] 50 degrees MUSE SYSTEM Calculated R [place] -28 degrees MUSE SYSTEM Calculated T [place] 90 degrees MUSE SYSTEM INTERPRETATION Sinus tachycardia [...] (ABNORMAL) Differential, Automated (07/05/2017 8:20 PM EST) [facility] gist Method Time Signature Neutrophils % 88.4 % [facility] Neutr Abs (ANC) 9.08 (H) 1.70 - [facility] 6.10 [facility] x10(3)/[facility] L LABORATORY Lymphocytes % 7.0 % [facility] Lymphocytes Abs 0.7 (L) 0.9 - 3.2 [facility] x10(3)/[facility] LABORATORY Monocytes % 3.7 % [facility] Monocyte Abs 0.4 0.3 - 0.9 [facility] x10(3)/[facility] LABORATORY Eosinophils % 0.1 % [facility] Eosinophils Abs 0.0 0.0 - 0.4 [facility] x10(3)/[facility] LABORATORY Basophils % 0.2 % [facility] Basophils Abs 0.0 0.0 - 0.1 [facility] x10(3)/[facility] LABORATORY Immature Gran % 0.60 % [place] [...] Organization Address City/State/[place] [address] (ABNORMAL) Hemogram (07/05/2017 8:20 PM EST) Analysis Performed At Patho logist Time Signature WBC 10.3 (H) 4.0 - 9.5 [facility] x10(3)/[facility] LABORATORY RBC 4.64 4.58 - [place] [facility] SU 5.54 [facility] x10(6)/[facility] LABORATORY Hemoglobin 14.1 13.7 - [facility] 16.[facility] gm/dL [facility] LABORATORY Hematocrit 40.8 40.5 - [facility] 48.5 % [facility] LABORATORY MCV 87.9 82.9 - [facility]1 [facility] LABORATORY MCH 30.4 27.5 - [facility] SU 32.1 pg [facility] LABORATORY MCHC 34.6 32.0 - [facility] 35.7 gm/dL [facility] LABORATORY Platelets 204 145 - 357 [facility] x10(3)/[facility] LABORATORY RDWSD 46.1 (H) 36.0 - [facility] SU 45.0 [facility] LABORATORY RDWCV 14.5 (H) 11.4 - [facility] SU 13.8 % [facility] LABORATORY MPV 9.7 7.6 - 12.9 [facility] LABORATORY nRBC % Auto 0.0 % [facility] LABORATORY nRBC Abs Auto 0.000 0.000 - [place] SU 0.000 [facility] x10(3)/[facility] LABORATORY Specimen Anatomical Collection Method Collection Time Receive d Time (Source) Location / / Volume Laterality Blood specimen 07/05/2017 8:20 PM 017 8:27 (specimen) EST PM EST Resulting Agency Comment Spec In Lab Daphne Shahid MD HEMATOLOGY ORDERABLES Performing Organization Address City/[facility]/ZIP Code Phon e Number [address] APTT (07/05/2017 8:20 PM EST) athologist Signature PTT 32 25 - 35 sec [facility] LABORATORY Comment: The recommended therapeutic range for fu ll dose, unfractionated heparin at [facility] is 80 ? 114 seconds. [...] Shahid MD HEMATOLOGY ORDERABLES Performing Organization Address [facility] [place] [address] (ABNORMAL) Cardiac Enzymes (LEB/CGP) (07/05/2017 8:20 PM EST) athologist Signature Troponin-T 2.11 (H) 0.00 - [facility] 0.00 ng/mL [facility] LABORATORY Comment: The 99th percentile [...] additional sample may be indicated. Reference: Third [place] Definition of Myocardial Infarction. Journal of the [place] College [employer]iology 2012;60:1581-98 CK, Total 149 0 - 200 unit/L [facility] LABORATORY Specimen Anatomical Collection Method Collection Time Receive d Time (Source) Location / / Volume Laterality Blood specimen 07/05/2017 8:20 PM 017 8:27 (specimen) EST PM EST Resulting Agency Comment Spec In Lab Daphne Shahid MD CHEMISTRY ORDERABLES Performing Organization Address City/[facility]/[place]IP [place] [address] (ABNORMAL) Magnesium (07/05/2017 8:20 PM EST) P athologist Signature Magnesium 0.68 (L) 0.69 - 1.07 [facility] mmol/L [facility] LABORATORY Specimen Anatomical Collection Method Collection Time Receive d Time (Source) Location / / Volume Laterality Blood specimen 07/05/2017 8:20 PM 017 8:27 (specimen) EST PM EST Resulting Agency Comment Spec In Lab Daphne Shahid MD CHEMISTRY ORDERABLES Performing Organization Address City/State/ZIP [facility] [place] [address] (ABNORMAL) Basic Metabolic Panel (non-fasting) (07/05/2017 8:20 PM EST) P athologist Signature Glucose Lvl 321 (H) 65 - 199 [facility] mg/dL [facility] LABORATORY Comment: Diabetes: >=200 mg/dL plus symp toms BUN 20 10 - 20 mg/dL [facility] [...] or in patients with acute kidney failure. http://Mira Dx/DHnkdep http://Mira Dx/DHMCnkf Specimen Anatomical Collection Method Collection Time Receive d Time (Source) Location / / Volume Laterality Blood specimen 07/05/2017 8:20 PM 017 8:27 (specimen) EST PM EST Resulting Agency Comment Spec In Lab Daphne Shahid MD CHEMISTRY ORDERABLES Performing Organization Address City/State/[place]IP [place] [address] (ABNORMAL) POCT Glucose (07/05/2017 7:32 PM EST) P athologist Signature POC Glucose 296 (H) 65 - 199 [facility] mg/dL [facility] LABORATORY Comment: Supplemental ranges: <140 mg/dL before meals <180 mg/dL all other times of the day Specimen Anatomical Collection Method Collection Time Receive d Time (Source) Location / / Volume Laterality Blood specimen 07/05/2017 7:32 PM 017 7:32 (specimen) EST PM EST Daphne Shahid MD POINT OF CARE TEST ORDERABLE S Performing Organization Address City/State/[place] [address] CARDIAC CATHETERIZATION (07/05/2017 6:47 PM EST) Specimen (Source) Anatomical Location Collection Method / Collectio n Time Received Time / Laterality Volume Narrative CARDIOMAC SYSTEM - 07/05/2017 7:27 PM ES T ?[facility] ? Cardiac Cathete rization/Intervention Report ? Patient Name: Natalya, Gregory ? Procedure Date: 07/05/2017 ? A #: [id number] ? Primary Physician: Jet Mckenna ? Case #: [id number] ? File Name: [id number] ? Catheterization Order Number: [id number] ? [facility] ? Final Report [place], [place] ? Patient Name: ? Gregory Natalya ?ID#: ?[id number] ? : ?1945 ? Procedure Date: ? [...] presented with: non -STEMI (w/i 7 days). [place] ?Cardiovascular Society angina c lass was IV. [...] angio graphy and IABP insertion in lab support tech. ? Jet Mckenna M.D. ? Electronically Signed by: Jet bunch M.D. ? Report Finalized: 07/05/2017 ??19:23 ? Report Last Ammended: 10/26/2017 ??10:29 ? Procedure Note Jet Mckenna MD - 10/26/2017Formatt ing of this note might be different from the original. [facility] Cardiac Catheterization/Intervention Re port Patient Name: Natalya Gregory Procedure Date: 07/05/2017 A #: [id number] Primary Physician: Jet Mckenna Case #: [id number] File Name: [id number] Catheterization Order Number: [id number] [facility] Final Report [place], [place] Patient Name: Gregory Hoang ID#: [id number] : 1945 Procedure Date: July 05, [...] presented with: non-STEMI ( w/i 7 days). [place] Cardiovascular Society angina class was IV. No [...] angiograph y and IABP insertion in lab support tech. Jet Mckenna M.D. Electronically Signed by: Jet [...] E ? (Age): 1945(72y) Med Rec#: ? [id number] ?Sex: ?M ? Site Loc: ? [facility] ?Ht / Wt: ??173(cm)/86(kg) Pt. Loc: ?CCU ? BSA: ?2 Study Date: ?? 07/05/2017 ?Pt. Type: Inpatient Tape: ? Referring: Daphne Shahid ([id number]) Referring: MANDA ALCANTAR Reading: Blade Preston ([id number]) Drafter Cartographic: Dayami Paula BA, [facility] Diagnosis: *ICD-10-PCS Non-ST elevation [...] E-wave Vmax ?0.8 ?m/sec ? MV deceleration [id number] ?msec ? MV A-wave Vmax ?0.8 ?m/sec [...] ? Mid-Inferior ?Akinetic ? Mid-Inferoseptal ?Hypokinetic ? [place]-Septal ? Akinetic ? [place]-Anterior ? Hypokinetic ? [place]-Lateral ?Hypokinetic ? [place]-Inferior ? Akinetic ? [place]-Tip ?Akinetic ? This report has been electronically sign ed by: _ Blade Preston MD ? 07/06/2017 08 :53:15 Images reviewed and interpretation verif ied [facility] Cardiac Ultrasound Laboratory Procedure Note Blade Preston MD - 07/06/2017Formatt ing of this note might be different from the original. Procedure: Transthoracic Echocardiogram Patient: NATALYA MCBRIDE(Age): [birth year]72y) Med Rec#: [id number] Sex: M Site Loc: [facility] Ht / Wt: 173(cm)/86(kg) Pt. Loc: [facility] BSA: 2 Study Date: 07/05/2017 Pt. Type: Inpatie nt Tape: Referring: Daphne Shahid ([id number]) Referring: MANDA ALCANTAR Reading: Blade Preston ([id number]) Drafter Cartographic: Dayami Paula BA, [facility] Diagnosis: *ICD-10-PCS Non-ST elevation [...] MV E-wave Vmax 0.8 m/sec MV deceleration [id number] msec MV A-wave Vmax 0.8 m/sec MV [...] Hypokinetic Mid-Posterolateral Hypokinetic Mid-Inferior Akinetic Mid-Inferoseptal Hypokinetic [place]-Septal Akinetic [place]-Anterior Hypokinetic [place]-Lateral Hypokinetic [place]-Inferior Akinetic [place]-Tip Akinetic This report has been electronically sign ed by: _ Blade Preston MD 07/06/2017 08:53:15 Images reviewed and interpretation [facility] Cardiac Ultrasound Laboratory Daphne Shahid MD ECHO ORDERABLES Performing Organization Address City/State/ZIP Code Phon e Number [facility] Differential, Automated (07/05/2017 4:55 PM EST) P athologist Signature Neutrophils % 77.0 % [facility] LABORATORY Neutr Abs (ANC) 5.26 1.70 - [facility] 6.10 [facility] x10(3)/[facility] LABORATORY Lymphocytes % 13.3 % [facility] LABORATORY Lymphocytes Abs 0.9 0.9 - 3.2 [facility] x10(3)/[facility] LABORATORY Monocytes % 8.2 % [facility] LABORATORY Monocyte Abs 0.6 0.3 - 0.9 [facility] x10(3)/[facility] LABORATORY Eosinophils % 0.7 % [facility] LABORATORY Eosinophils Abs 0.0 0.0 - 0.4 [facility] x10(3)/[facility] LABORATORY Basophils % 0.4 % [facility] LABORATORY Basophils Abs 0.0 0.0 - 0.1 [facility] x10(3)/[facility] LABORATORY Immature Gran % 0.40 % [...] Melisa Gran Abs 0.03 0.00 - 0.04 x10(3)/[facility] Y [facility] LABORATORY Specimen Anatomical Collection Method Collection Time Receive d Time (Source) Location / / Volume Laterality Blood specimen 07/05/2017 4:55 PM 017 5:24 (specimen) EST PM EST Resulting Agency Comment Spec In Lab Daphne Shahid MD HEMATOLOGY ORDERABLES Performing Organization Address City/State/[place] [address] (ABNORMAL) Hemogram (07/05/2017 4:55 PM EST) Analysis Performed At Patho logist Time Signature WBC 6.8 4.0 - 9.5 [facility] x[facility](3[facility] LABORATORY RBC 4.67 4.58 - [place] SU 5.54 [facility] x10(6)/[facility] LABORATORY Hemoglobin 14.0 13.7 - [facility] gm/dL [facility] LABORATORY Hematocrit 41.0 40.5 - [facility] 48.5 % [facility] LABORATORY MCV 87.8 82.9 - [facility] 93.1 [facility] LABORATORY MCH 30.0 27.5 - [place] SU 32.1 pg [facility] LABORATORY MCHC 34.1 32.0 - [facility] 35.7 gm/dL [facility] LABORATORY Platelets 197 145 - 357 [facility] x10(3)/[facility] LABORATORY RDWSD 46.4 (H) 36.0 - [facility] SU 45.0 [facility] LABORATORY RDWCV 14.5 (H) 11.4 - [facility] SU 13.8 % [facility] LABORATORY MPV 9.7 7.6 - 12.9 [facility] nRBC % Auto 0.0 % [facility] LABORATORY nRBC Abs Auto 0.000 0.000 - [place] SU 0.000 [facility] x10(3)/[facility] LABORATORY Specimen Anatomical Collection Method Collection Time Receive d Time (Source) Location / / Volume Laterality Blood specimen 07/05/2017 4:55 PM 017 5:24 (specimen) EST PM EST Resulting Agency Comment Spec In Lab Daphne Shahid MD HEMATOLOGY ORDERABLES Performing Organization Address City/State/[place] [address] (ABNORMAL) Cardiac Enzymes (LEB/CGP) (07/05/2017 4:55 PM EST) P athologist Signature Troponin-T 1.69 (H) 0.00 - [facility] 0.[facility] ng/mL [facility] LABORATORY Comment: The 99th percentile [...] additional sample may be indicated. Reference: Third [place] Definition of Myocardial Infarction. Journal of the [place] [employer] Cardiology 2012;60:1581-98 CK, Total 191 0 - 200 unit/L [facility] LABORATORY Specimen Anatomical Collection Method Collection Time Receive d Time (Source) Location / / Volume Laterality Blood specimen 07/05/2017 4:55 PM 017 5:56 (specimen) EST PM EST Resulting Agency Comment Spec In Lab Daphne Shahid MD CHEMISTRY ORDERABLES Performing Organization Address City/[facility]/[place] [address] (ABNORMAL) pro-Brain Natriuretic Peptide (07/05/2017 4:55 PM EST) P athologist Signature ProBNP 1,598 (H) <=125 [facility] pg/mL [facility] LABORATORY Specimen Anatomical Collection Method Collection Time Receive d Time (Source) Location / / Volume Laterality Blood specimen 07/05/2017 4:55 PM 017 5:24 (specimen) EST PM EST Resulting Agency Comment Spec In Lab Daphne Shahid MD CHEMISTRY ORDERABLES Performing Organization Address City/[facility]/ZIP [place] [address] Magnesium (07/05/2017 4:55 PM EST) athologist Signature Magnesium 0.78 0.69 - 1.07 [facility] mmol/L [facility] LABORATORY Specimen Anatomical Collection Method Collection Time Receive d Time (Source) Location / / Volume Laterality Blood specimen 07/05/2017 4:55 PM 017 5:24 (specimen) EST PM EST Resulting Agency Comment Spec In Lab Daphne Shahid MD CHEMISTRY ORDERABLES Performing Organization Address City/State/[place] [address] (ABNORMAL) Basic Metabolic Panel (non-fasting) (07/05/2017 4:55 PM EST) athologist Signature Glucose Lvl 230 (H) 65 - 199 [facility] mg/dL [facility] LABORATORY Comment: Diabetes: >=200 mg/dL plus symp toms BUN 19 10 - 20 mg/dL [facility] LABORATORY Creatinine 1.04 0.80 - [...] or in patients with acute kidney failure. [email or web address] Dx/DHnkdep [email or web address]/DHMCnkf Specimen Anatomical Collection Method Collection Time Receive d Time (Source) Location / / Volume Laterality Blood specimen 07/05/2017 4:55 PM 017 5:24 (specimen) EST PM EST Resulting Agency Comment Spec In Lab Daphne Shahid MD CHEMISTRY ORDERABLES Performing Organization Address City/[facility]/[place] [address] (ABNORMAL) APTT (07/05/2017 4:55 PM EST) P athologist Signature PTT 41 (H) 25 - 35 sec [facility] LABORATORY Comment: The recommended therapeutic range for fu ll dose, unfractionated heparin at [facility] is 80 ? 114 seconds. [...] Address City/[facility]/[place] [address] (ABNORMAL) POCT Glucose (07/05/2017 4:53 PM EST) P athologist Signature POC Glucose 208 (H) 65 - 199 [facility] mg/dL [facility] LABORATORY Comment: Supplemental ranges: <140 mg/dL before meals <180 mg/dL all other times of the day Specimen Anatomical Collection Method Collection Time Receive d Time (Source) Location / / Volume Laterality Blood specimen 07/05/2017 4:53 PM 017 4:53 (specimen) EST PM EST Daphne Shahid MD POINT OF CARE TEST ORDERABLE S Performing Organization Address City/[facility]/[place] [address] EKG 12 Lead (07/05/2017 4:32 PM EST) Component Value Ref Range Test Analysis Performed Pathologis t Method Time At Signature Ventricular rate 97 BPM MUSE SYSTEM Atrial Rate 97 BPM MUSE SYSTEM P-R Interval 148 ms MUSE SYSTEM QRS Duration 96 ms MUSE SYSTEM Q-T Interval 364 ms MUSE SYSTEM QTC Calculated 462 ms MUSE SYSTEM (Bezet) Calculated P [place] 48 degrees MUSE SYSTEM Calculated R [place] -33 degrees MUSE SYSTEM Calculated T [place] 98 degrees MUSE SYSTEM INTERPRETATION Normal sinus [...] Coronary atherosclerosis of unspecified type of vessel, tonto apache or graft Cardiomyopathy, ischemic Other specified forms [...] dose on Wed07/07/17 at 2100, Until Discontinued, [place] teeth, Routine Given 07/08/2017 10:06 PM EST [...] or norepinephrine is ineffective. Call pager # [phone] if initiated. Rate/Dose Change 07/08/2017 7:01 PM [...] if phenyleprine and/or vasopressin ineffective.Call pager # [phone] if initiated., Routine Rate/Dose Change 07/09/2017 1:24 [...] Maximum volume 2 L. Call dye house hand for additional fluid orders: pager #[phone]. Rate/Dose Verify 07/08/2017 4:00 AM EST 100 [...]
Routine documented in this encounter Care Teams Prism Measurer Relationship Specialty Start Date End Date Lovely Vicente MD PCP - General 04/16/[address] [place] [address] documented as of this encounter
--- OUTSIDE RECORDS SUMMARY | 2022-03-16 08:21 | XMS_ITS | Encounter Summary ---
:1945 Author Organization [facility] [place] [address] Care Team Providers Name Role Phone Lovely Vicente MD Primary Care Provider Encounter Details Date Type Department Care Team Description 07/08/2017 Orders Only Cardiology [facility] [place] [address] Social History Tobacco Use Types Packs/Day [...] Nobles MD [facility] [address] [place], [place] [address] (Wo rk) 05/28/2022 Appointment Cardiology Zulma Dolan MD [facility] [address] [place] [address] (Wo rk) 05/28/2022 Laboratory Appointment Lab 05/28/2022 Office Visit Cardiology Zulma Dolan MD [facility] [place] [address] Liz Poole PA [facility] Cardiology [place] [address] 06/10/2022 Office Visit Dermatology Laura Scherer MD [facility] ER [address] [place], [place] [address] (Wo rk) documented as of this encounter Procedures Procedure Name Priority Date/Time Associated Diagnosis Comme nts TRANSESOPHAGEAL Routine 07/08/2017 Results for this ECHOCARDIOGRAM (AVELINO) procedu re are in the results section. documented in this encounter Results Transesophageal Echocardiogram (AVELINO) (07/08/2017) Specimen (Source) Anatomical Location Collection Method / Collectio n Time Received Time / Laterality Volume 07/08/2017 Narrative HEARTNeocleus SYSTEM - 07/08/2017 12:25 PM ES T Procedure: ?Transesophageal Echocardiogram Patient: ?NATALYA Mccollum ? (Age): 1945(72y) Med Rec#: ? [id number] ?Sex: ?M ? Site Loc: ? Ht / Wt: ??(cm)/ (kg) ? Pt. Loc: ? Study Date: ?? 07/07/2017 ?Pt. Type: Tape: ? Referring: Yuan Retana Reading: Yifan Perez MD ([id number]) Performing: Yifna Perez MD ([id number]) Diagnosis: SUMMARY: 1. Intraoperative AVELINO performed at the [facility] of Dr. Mike for the [...] ? Mid-Inferior ?Hypokinetic ? Mid-Inferoseptal ?Hypokinetic ? [place]-Septal ? Hypokinetic ? [place]-Anterior ? Hypokinetic ? [place]-Lateral ?Hypokinetic ? [place]-Inferior ? Hypokinetic ? [place]-Tip ?Not Seen ? This report has been electronically sign ed by: _ Yifan Perez MD ? 07/08/2017 12 :25:18 Images reviewed and interpretation verif ied [facility] Cardiac Ultrasound Laboratory Procedure Note Yifan Perez MD - 07/08/2017Formatt ing of this note might be different from the original. Procedure: Transesophageal Echocardiogra m Patient: NATALYA MCBRIDE(Age): [birth year]72y) Med Rec#: [id number] Sex: M Site Loc: Ht / Wt: (cm)/ (kg) Pt. Loc: Study Date: 07/07/2017 Pt. Type: Tape: Referring: Yuan Retana Reading: Yifan Perez MD ([id number]) Performing: Yifan Perez MD ([id number]) Diagnosis: SUMMARY: 1. Intraoperative AVELINO performed at [...] Hypokinetic Mid-Posterolateral Hypokinetic Mid-Inferior Hypokinetic Mid-Inferoseptal Hypokinetic [place]-Septal Hypokinetic [place]-Anterior Hypokinetic [place]-Lateral Hypokinetic [place]-Inferior Hypokinetic [place]-Tip Not Seen This report has been electronically sign ed by: _ Yifan Perez MD 07/08/2017 12:25:18 Images reviewed and interpretation elvie hwang [facility] Cardiac Ultrasound Laboratory Unknown ECHO ORDERABLES Performing Organization Address City/State/ZIP Code Phon e Number [facility] documented in this encounter Visit Diagnoses Not on filedocumented in this encounter Care Teams Talcer Relationship Specialty Start Date End Date Lovely Vicente MD PCP - General 04/16/[address] [place] [address] documented as of this encounter
--- OUTSIDE RECORDS SUMMARY | 2022-03-16 08:22 | XMS_ITS | Encounter Summary ---
:1945 [place] [address] Care Team Providers Name Role Phone Lovely Vicente MD Primary Care Provider Reason for Visit Auth/Cert Specialty Diagnoses / Procedures Referred By Contact Refer red To Contact Diagnoses STEMI (ST elevation myocardial infarction) NSTEMI STEMI Procedures CARDIAC CATHETERIZATION NAYE IPI Referral ID Status Reason Start Date Expiration Date Visits Requ ested Visits Authorized [id number] 1 1 Encounter Details Date Type Department Care Team Description 07/07/2017 Anesthesia Event Main Operating Room Yifan Jaime MD [facility] [place] [address] [facility] Ginny Murray MD [facility] [place] [address] [facility] [place] [address] Anesthesia Record Procedure Summary Procedure Name [...] 2342 LDA Cath/EP Sheath 07/05/17; 0606; 8 Kenyan 07/05/17 0606 by [id number] by (Fr); Right; Femoral [place]iana Park, Yane Cook, RN PIV 07/05/17; 1720; median 07/05/17 1720 by 07/11/17 2355 by vein (underside of arm), Prior, Yanet Maza, VAMSI Crum, Angela Gomes, left; 18 gauge; removed FERRY TERMINAL SUPERVISOR per policy/procedure; 07/11/17; 2355 Intra-Aortic Balloon 07/05/17; [...] Miller, Carrie L, Type: Cuffed; ETT Size: WIRE BRUSH MAKER 8 mm; Santiago Blade: 2; Notes: Asleep, [...] Murray MD - 07/08/2017 5:[address] [facility] Department of Anesthesiology Post-procedure Note Patient: Don Fatima Procedure Summary Date Anesthesia Start Anesthesia Stop Room / Location 07/07/17 1335 1836 [facility] OR [facility] MAIN OR Procedure Diagnosis Surgeon Responsible Provider @CABG, USING ARTERIAL GRAFT;SINGLE ARTERIAL GRAFT (WRVU 33.75) (N/A Chest); @CABG, TWO VENOUS GRAFTS & ARTERIAL GRAFT (WRVU 7.93) (N/A Chest); ENDOSCOPIC HARVEST VEIN(S) FOR CABG (WRVU 0.31) (Right Leg) (CAD) Yuan Freitas MD Hartman, Gregg S, MD All Anesthesia Providers: Anesthesiologist: Yifan Perez MD Green Lumber Grader: Ginny Murray MD Most Recent Vitals: 07/08/17 [...] SETUP performed by Manny Mcknight MD at [facility] MAIN OR ??? PRO COLONOSCOPY, REMV LESN, SNARE 01/16/2014 COLONOSCOPY, POLYPECTOMY, REMOVAL LESION BY SNARE performed by Nohemi Jaimes MD at [facility] ENDOSCOPY ??? PRO THYROIDECTOMY 03/28/2013 THYROIDECTOMY, TOTAL OR COMPLETE performed by Manny Mcknight MD at [facility] MAIN OR Social History Substance [...] MD [facility] [address] [place], [place] [address] (Wo rk) 05/28/2022 Appointment Cardiology Zulma Dolan MD [facility] [place], [place] [address] (Wo rk) 05/28/2022 Laboratory Appointment Lab 05/28/2022 Office Visit Cardiology Zulma Dolan [place] [facility] [place] [address] Liz Poole PA [facility] [place] [address] 06/10/2022 Office Visit Dermatology Laura Scherer MD [facility] [address] [place], [place] [address] (Wo rk) documented as of [...] mg documented in this encounter Care Teams Informatics Specialist Relationship Specialty Start Date End Date Lovely Vicente MD PCP - General 04/16/15 [facility] [address] [place] [address] documented as of this encounter
--- OUTSIDE RECORDS SUMMARY | 2022-03-16 08:22 | XMS_ITS | Encounter Summary ---
:1945 Author Organization [facility] Address [facility] [place] [address] Care Team Providers Name Role Phone Lovely Vicente MD Primary Care Provider Reason for Visit Auth/Cert Specialty Diagnoses / Procedures Referred By Contact Refer red To Contact Diagnoses STEMI (ST elevation myocardial infarction) NSTEMI STEMI Procedures CARDIAC CATHETERIZATION NAYE IPI Referral ID Status Reason Start Date Expiration Date Visits Requ ested Visits Authorized [id number] 1 1 Encounter Details Date Type Department Care Team Description 07/07/2017 Surgery Main Operating Room Yuan Webber, @ CABG, USING ARTERIAL Barbara Ocampo MD GRAFT;SINGLE ARTERIAL Hospital [facility] GRAFT (WRVU 33.75) [facility] DR Sidd[place] [address] SURGERY [phone] [place], [place] [address] (Wo rk) Social History [...] in this encounter Discharge Summaries Martha Teague, BEEF CATTLE FARMER - 07/14/2017 9:38 AM EST Inpatient - Discharge Summary Patient Name: Gregory Hoang Patient Age: 72 y.o. Birthdate: 1945 Language: Faroese Race: White Ethnicity: Not nor Admit Date: [...] , @ 1:20p Patient to follow-up with Mixer Operator/heart failure team in one week. An appointment will be made for you. You may call [phone] Patient to follow-up with Cardiac Surgery, Dr. Yuan Webber, in ~ 4 weeks with CXR, EKG. Inpatient Provider Contact Information: [facility]iac [facility] [address] FAX [phone] Discharge Diagnoses (Hospital Problems) Primary Diagnoses: CAD [...] 33.75) performed by Yuan Webber MD at [facility] OR ??? PRO CABG, ARTERY-VEIN, TWO N/A 07/07/2017 @CABG, TWO VENOUS GRAFTS & ARTERIAL GRAFT (WRVU 7.93) performed by Yuan Webber MD at [facility] OR ??? PRO COLONOSCOPY, REMV LESN, SNARE 01/16/2014 COLONOSCOPY, POLYPECTOMY, REMOVAL LESION BY SNARE performed by Nohemi Jaimes MD at [facility] ENDOSCOPY ??? PRO ENDOSCOPY W/VIDEO-ASST VEIN HARVEST, CABG Right 07/07/2017 ENDOSCOPIC HARVEST VEIN(S) FOR CABG (WRVU 0.31) performed by Yuan Webber MD at [facility] OR ??? PRO THYROIDECTOMY 03/28/2013 THYROIDECTOMY, TOTAL OR COMPLETE performed by Manny Mcknight MD at [facility] OR Prior To Admission Medications Prescriptions Prior to Admission Medication Sig Dispense Refill Last Dose ??? levothyroxine (SYNTHROID) 175 mcg Tablet Take 1 tablet by mouth daily. 90 tablet 3 07/05/2017 [id number] ??? ascorbic acid, vitamin C, (VITAMIN C) [...] Course: Gregory Hoang was admitted to [facility] on 07/05/2017 via the Cardiology Service. During his hospital course, he was taken emergently to the rangelands conservation laborer for an ongoing STEMI. An IABP [...] not take or discontinue any prescription or cfdt-neh-afeaiae medications without asking your doctor or pharmacist [...] to have your insulin doses adjusted. [facility] Endocrine clinic office Discharge Instructions: Call your doctor if: You have a fever of greater than 101 degrees, shaking chills, if you develop redness or drainage from your incision sites, or if you have questions. Please call your surgeon's office if you have any discharge or drainage from your chest incision. Your surgeon, Dr. Yuan Webber and/or the Cardiac Surgery Physician Tool And Die Designer Team may be reached at . Weight: [...] Dr. Yuan Webber. You may use a [employer] Track or treadmill but avoid any pulling [...] with the surgeon. Do not ride motorcycles, [employer]'s tractors or horses. Avoid the use of [...] , @ 1:20p Patient to follow-up with Mixer Operator/heart failure team in one week. Appointment will be made for you. You may call [phone] Patient to follow-up with Cardiac Surgery, Dr. Yuan Webber, in ~ 4 weeks with CXR, EKG. Cardiac Rehabilitation: Gregory Hoang was seen today regarding participation in the outpatient Phase 2 Cardiac Rehabilitation at [facility]. The patient agrees to a referral to this program. The referral will be sent at discharge and the patient should be contacted by the Program within 1- 2 weeks from discharge. ?? Future Appointments and Orders Future Appointments Provider Department Dept Phone 09/07/2017 3:00 PM LAB, [facility] Lab 3L [facility] [phone] 09/07/2017 4:00 PM Luz Prescott MD Endocrinology at [facility] [phone] Future Orders Complete By Expires EKG 12 Lead [EKG1 Custom] 08/14/2017 02/13/2018 Process Instructions: Scheduling Instructions: Questions: Which DH location will this be performed?: [facility] Is a rhythm strip needed?: No If EKG Reason is Pre-op Evaluation, indicate diagnosis for surgery.: XR Chest PA & Lateral (Generic) [[id number] Custom] 08/14/2017 02/13/2018 Process Instructions: Scheduling Instructions: Questions: Where will study be performed?: [facility] Portable exam?: Reason for exam and clinical history: CABG x 3 Other pertinent information: Stat read required?: Date of injury if applicable: Requested Time: Referral to Cardiac Rehab [ITI469 Custom] As directed Process Instructions: If no progress note charted, please enter Clinical details in comments. Scheduling Instructions: Questions: My question or request is: s/p CABG. Cardiac rehab at [facility] Referral to Home Health - at DISCHARGE [PFM3616 CPT(R)] As directed Process Instructions: Scheduling Instructions: Comments: DOCUMENTATION FOR VNA SERVICES (INCLUDING THOSE PATIENTS WITH MEDICARE COVERAGE REQUIRING HOME VNA SERVICES AND/OR HOSPICE SERVICES) PATIENT'S LOCATION: Gregory Hoang [address] [place] [address] [place] [id number] (home) Telephone Information: Hr Associate's Name: self In discussion with the attending physician, it is certified that this patient is under their care and that they, or a Nurse Practitioner, or Physician Tool And Die Designer who is working directly with them, had [...] [facility] ([facility] [place] [facility]-is in [place], [place]) PHONE: [phone] FAX: [phone] RN orders: Cardiopulmonary assessment, incisional assessment, assess vital signs, assessment of rehab progress, medication management and effectiveness, home safety evaluation. Please draw INR if indicated and send result to:Dr Vicente [phone] PT ORDERS: Continue rehab for endurance, gait stability and strength with mobility and transfers. Home safety evaluation. Home exercise program if appropriate. Start of Care Date:24-48 hours after discharge SPECIAL INSTRUCTIONS: For any follow up questions, needs, or issues please call the Cardiac Surgery Office at [phone] FOR MEDICARE ONLY: (please delete this section [...] noted. Questions: Agency name and contact information: [facility] Patient location post discharge: home What services are requested: Registered Nurse Physical Therapy Start date: Responsible MD post discharge contact info: PCP Arrangements for VNA/home care: As above. VN RN OR PCP TO PLEASE REMOVE CHEST TUBE SUTURES ON OR AFTER 07/17/2017 Signed: Martha Teague APRN [facility] Cardiac [facility] [address] FAX [phone] Date: 07/14/2017 CC: MD Ivania Cr Betsy, PA [address] [place] [phone] documented in this encounter Discharge Instructions Discharge [...] to have your insulin doses adjusted. [facility] Endocrine clinic office Patient InstructionsStMartha mcdonald APRN [...] not take or discontinue any prescription or jsul-sry-rxckjli medications without asking your doctor or pharmacist [...] to have your insulin doses adjusted. [facility] Endocrine clinic office ? Discharge Instructions: ?? Call your doctor if: You have a fever of greater than 101 degrees, shaking chills, if you develop redness or drainage from your incision sites, or if you have questions. Please call your surgeon's office if you have any discharge or drainage from your chest incision. Your surgeon, Dr. Yuan Wbeber and/or the Cardiac Surgery Physician Tool And Die Designer Team may be reached at . ?? [...] Dr. Yuan Webber. You may use a [employer] Track or treadmill but avoid any pulling [...] with the surgeon. Do not ride motorcycles, [employer]'s tractors or horses. Avoid the use of [...] @ 1:20p ?? Patient to follow-up with Mixer Operator/heart failure team in one week. An appointment has been made for you, you can call [phone] ?? Patient to follow-up with Cardiac Surgery, Dr. Yuan Webber, in ~ 4 weeks with CXR, EKG. ? Cardiac Rehabilitation: Gregory Hoang??was seen today regarding participation in the outpatient Phase 2 Cardiac Rehabilitation at [facility]. ?? The patient agrees to a referral to this program.? The referral will be sent at discharge and the patient should be contacted by the Program within 1- 2 weeks from discharge. ? Future Appointments and Orders Future Appointments Provider Department Dept Phone ?? 09/07/2017 3:00 PM LAB, [facility] L Lab 3L [facility] [phone] ?? 09/07/2017 4:00 PM Luz Prescott MD Endocrinology at [facility] [phone] Future Orders Complete By Expires ?? EKG 12 Lead [EKG1 Custom] 08/14/2017 02/13/2018 ?? Process Instructions: ? Scheduling Instructions: ? Questions: ? Which location will this be performed?: [facility] ?? Is a rhythm strip needed?: No ?? If EKG Reason is Pre-op Evaluation, indicate diagnosis for surgery.: ?? XR Chest PA & Lateral (Generic) [[id number] Custom] 08/14/2017 02/13/2018 ?? Process Instructions: ? Scheduling Instructions: ? Questions: ? Where will study be performed?: [facility] ?? Portable exam?: ?? Reason for exam and clinical history: CABG x 3 ?? Other pertinent information: ?? Stat read required?: ?? Date of injury if applicable: ?? Requested Time: ?? Referral to Cardiac Rehab [XYR950 Custom] As directed ? Process Instructions: ?? If no progress note charted, please enter Clinical details in comments. ?? Scheduling Instructions: ? Questions: ? My question or request is: s/p CABG. Cardiac rehab at [facility] ? Arrangements for VNA/home care: [...] RN - 07/14/2017 2:34 PM EST The patient/publications sales representative has been provided a list of Home Health Agencies/DME vendors which serve their preferred geographic area. A letter describing our affiliations was reviewed with them and theywere educated about their right to choose where referrals are placed. Patient requests referral to [facility] [employer]. PHONE: [phone] FAX: [phone] Expected date of discharge: 07/14 Referral routed to the [employer] for matching with agency/vendor and to provide any required information. Kathie Beckmna APRN - 07/14/2017 11:13 AM EST Images [...] to have your insulin doses adjusted. [facility] Endocrine clinic office Kathie Carrera APRN [facility] Endocrinology Diabetes Management Pager [phone] minutes of this 35 minute visit was spent with the patient in counseling on diabetes and treatment plan, reviewing all glucose and insulin data as well as relevant laboratory results with the patient, and coordination of care on the inpatient unit including nursing and primary team. Zulma Power RN - 07/14/2017 10:30 AM EST The patient/publications sales representative has been provided a list of Home Health Agencies/DME vendors which serve their preferred geographic area. A letter describing our affiliations was reviewed with them and theywere educated about their right to choose where referrals are placed. Patient requests referral to : Yasmani Munguia ([facility] [place] [facility]-is in [place]) PHONE: [phone] FAX: [phone]. Expected date of discharge: 07/14/17 Referral routed to the [employer] for [...] continue to follow Katerin Azul APRN [facility] Endocrinology Diabetes Management Pager [phone] minutes of this 25 minute visit [...] of infiltration/extravasation Discussed plan of care with IT OPERATIONS MANAGER and RN. Elevate exrtemity and apply intermittent Warm compresses. Name of MD contacted Dr. Shaw Brown 07/13/2017 @ 0628 Name of RN contacted Ale Rangel RN Name of Pharmacist if consulted NA Name of Plastics MD ( if consulted) NA (Mandatory photo for infiltrations/ extravasations scoring a stage 2 or greater, but recommended forstage 1)( include measuring tape and identifier in the photo) BOTTLE INSPECTOR CARING FOR THIS PATIENT WILL CONTINUE [...] measuring tape and identifier in the photo) BOTTLE INSPECTOR CARING FOR THIS PATIENT WILL CONTINUE [...] regard to both infiltrates addressed by this display card writer.All of MrMadiha Hoang's responses were entirely appropriate. Images of infiltrates attached here. L Martha Teague, BEEF CATTLE FARMER - 07/13/2017 8:01 AM EST Cardiac Surgery Progress Note: ID: [id number] 72 year old male POD#6 s/p CABGx3 [...] discharge. ?? I have met with the patient/publications sales representative to discuss discharge planning needs. I have provided the [facility], Office of Care Management letter from the Machine Operator Hay Stacker pertaining to rehab referrals. I have also provided a letter describing our affiliations within the [facility] and educated them about their right to choose where referrals are placed. ?? I reviewed the different levels of rehab including SNF, swing, acute and LTAC with the patient/publications sales representative. ?? The patient/publications sales representative has been provided a list of facilities within their preferred geographic area. ?? I have requested that the patient/publications sales representative provide at least three choices for referral. ?? The patient/publications sales representative have requested referrals to: ?? [facility]. [facility] ?? 2. [facility] ?? 3. More to be entered ?? Expected date of discharge: 07/14 Note routed to [employer] [employer] who will communicate referrals to facilities and [...] hours. If BG remains greater than 240, tvgfuh18 units (no more than three times) & [...] hours. If BG remains greater than 240, ndoavu22 units (no more than three times) & call for new basal insulin orders. ??If less than 240 after two hours, give no insulin and resume prior schedule. Will continue to follow Katerin Azul APRN [facility] Endocrinology Diabetes Management Pager [phone] 20 minutes of this 35 minute visit was spent with the patient in counseling on diabetes and treatment plan, reviewing all glucose and insulin data as well as relevant laboratory results with the patient, and coordination of care on the inpatient unit including nursing and primary team. Makayla Stevenson APRN - 07/12/2017 9:52 AM EST Cardiac Surgery Progress Note: ID: [id number] 72 year old male POD#5 s/p CABGx3 [...] 7:18 PM EST Patient arrived from [facility]. VSS. MSI dressing pulled off [...] hours. If BG remains greater than 240, pyuxki93 units (no more than three times) & [...] AM EST Cardiac Surgery Progress Note: ID: [id number] 72 year old male POD#4 s/p CABGx3 [...] AM EST Cardiac Surgery Progress Note: ID: [id number] 72 year old male POD#3 s/p CABGx3 [...] Gas) No results found for: PHART, PO2ART, XLO3VXB Assessment/Plan: 72 year old male POD#3 s/p [...] Mami Thao - 07/09/2017 6:29 PM EST Director Cloud Transformation Encounter Note Patient Name: Gregory Hoang : [id number] MR#: [id number] Admit Date: 07/05/2017 4:20 PM Hospital Day 4 days Narrative: Patient was sitting in chair, hugging heart pillow, opened his eyes, nodding to come into room Assessment: Patient was sleepy. Intervention and Outcome: Introduced radial drill press set up operator services and patient reached his hand out in appreciation. Follow-up: Director Cloud Transformation remains available for support. Time in Direct [...] 07/09/2017 10:45 AM EST Report given to community health nurse staff to cover care Maddison Cee PA - 07/09/2017 9:00 AM EST Cardiac Surgery Progress Note: ID: [id number] 72 year old male POD#2 s/p CABGx3 [...] completed shifts: In: 7977.4 [I.V.:7477.4; Other:500] Out: 6145 [Urine:3000; Other:615] I- 4 L O- 2.7 [...] Surgeon on rounds. Signed: STEPHANIE Iqbal [facility] Section of Cardiac Surgery Date: [...] when IABP d/c'ed. Gretchen Carolina, PT Pager [phone] Maddison Cee PA - 07/08/2017 11:27 AM EST Cardiac Surgery Progress Note: ID: [id number] 72 year old male POD#1 s/p CABGx3 [...] Surgeon on rounds. Signed: STEPHANIE Iqbal [facility] Section of Cardiac Surgery Date: [...] in place in R femoral. No hematoma. BATTING MACHINE OPERATOR- Intact Psych- Anxious Skin- Dry, [...] intact. IABP in place in R femoral. BATTING MACHINE OPERATOR- Intact Psych- Anxious Skin- Dry, [...] pending CABG - hold metformin - f/u [facility] ?? #Home Meds - continue levothyroxine [...] note for details. DAPHNE SHAHID MD Pager [phone] Jet Mckenna MD - 07/05/2017 6:48 PM EST Preliminary Cardiac Catheterization Procedure Note: Procedure(s) performed: Left heart cath, IABP insertion Access: Right BANDER AND CELLOPHANER MACHINE-->8fr IABP A time-out was conducted prior [...] effect. Heparin gtt maintained. Pt transferred to rangelands conservation laborer. documented in this encounter H&P Notes Daphne Shahid MD - 07/05/2017 6:08 PM EST CARDIOLOGY HISTORY & PHYSICAL EXAM Date of Admission: 07/05/2017 ( Hospital Day 0 days ) Responsible Attending: Daphne Shahid MD PCP: Lovely Vicente MD PCP#: [phone] Patient Active Problem List Diagnosis Code ??? [...] with heparin drip and transferred to [facility]. While there, continued sob, question of chest pain. Stat TTE showing WMA diffusely and EF around 20%. No significant valvular disease. Taken to the rangelands conservation laborer urgently for ongoing STEMI. [facility] Labs: INR 1.0 WBC 5.88 [...] monitor I/O - s/p lasix in the rangelands conservation laborer, redose to aim net neg 1L [...] Medicine, PGY-2 Cardiology S1, Team Pager # [phone] CARDIOLOGY ATTENDING NOTE Patient: Gregory Hoang Date [...] amenable for PCI. DAPHNE SHAHID MD Pager [phone] documented in this encounter Miscellaneous Notes Consult Note - Daphne Shahid MD - 07/14/2017 11:46 AM EST Heart Failure Service Inpatient Consult Note Gregory Hoang Date of : 1945 Age: 72 y.o. Today's date: 07/14/17 PCP: Lovely Vicente MD EGGS INSPECTOR: None Place of Service: C451-A Reason [...] 33.75) performed by Yuan Webber MD at [facility] OR ??? PRO CABG, ARTERY-VEIN, TWO N/A 07/07/2017 @CABG, TWO VENOUS GRAFTS & ARTERIAL GRAFT (WRVU 7.93) performed by Yuan Webber MD at [facility] OR ??? PRO COLONOSCOPY, REMV LESN, SNARE 01/16/2014 COLONOSCOPY, POLYPECTOMY, REMOVAL LESION BY SNARE performed by Nohemi Jaimes MD at [facility] ENDOSCOPY ??? PRO ENDOSCOPY W/VIDEO-ASST VEIN HARVEST, CABG Right 07/07/2017 ENDOSCOPIC HARVEST VEIN(S) FOR CABG (WRVU 0.31) performed by Yuan Webber MD at [facility] OR ??? PRO THYROIDECTOMY 03/28/2013 THYROIDECTOMY, TOTAL OR COMPLETE performed by Manny Mcknight MD at [facility] OR Outpt Meds: Current Outpatient [...] following studies: EKG 07/14/17: NSR 75 bpm, MANAGER OF HEALTH anterior infarct, LAD CXR 07/11/17: FINDINGS: Sternotomy wires. The patient has been extubated, left chest tube removed, and Moshannon-Suzi catheter removed since the 07/07/2017 study. Atelectasis [...] was discussed with Zehra. Jaden Kelley MD Maintenance Parts Technician Pager [phone] CARDIOLOGY ATTENDING NOTE Patient: Gregory Hoang Date [...] heart failure clinic. DAPHNE SHAHID MD Pager [phone] Plan of Care - Alden Chavarria, PHYSICIAN'S ASSISTANT - 07/14/2017 11:35 AM EST Problem: [...] Disposition: home with assist Alden Jorge Genikevin, PHYSICIAN'S ASSISTANT Pager: [phone] Inpatient Physical Therapy Problem: Acute Rehab Services [...] sit/sit to supine -- Bed Mobility Goal, [place] supervision required -- Bed Mobility Goal, [...] - 3 days -- Gait Training Goal, [place] supervision required -- Gait Training Goal, [...] days -- Transfer Training Goal, Activity Type rqh-vx-pxmvh/ojolw-ls-gfc;mou-gx-uxfsk/tawfw-zw-yzp;toilet -- Transfer Train Goal, [place] supervision required -- Transfer Training Goal, [...] keeping present for 2 days per family. Cancer Program Consultant noted of frustrations, house keeping sent to room. Patient offered showered twice, refused. at bedside, frustrated that shower not complete, informed that patient had refused several times. requesting to see CONSULTANT INTERN, paged sent to Martha, will come to bedside (middle of consult). not willing to wait, Martha notified that family had gone home. Encouraged to come for morning rounds a t 8am. Diabetes team at bedside - insulin adjustments made. Call cabello in reach. Continue to monitor. PLAN MOVING FORWARD: Ambulate, dressing changes BID, Please change drsg at 4am per Martha CONSULTANT INTERN request. INDIVIDUALIZED FALL PREVENTION INTERVENTIONS: Patient-specific [...] levels on the lower side, 60ml of [place] juice given after a FS of 80. [...] Conf 07/13/17 0502 Interdisciplinary Rounds/Family Conf Participants block and case maker;dietitian/nutrition services;nursing;occupational therapy;patient;pharmacy;physical therapy;physician Plan of [...] Anticipated Discharge Disposition: home with assist Pager: [phone] CLARISSA SEGAL, PT 07/12/2017 Physical Therapy Rehabilitation [...] to sit/sit to supine Bed Mobility Goal, [place] supervision required Bed Mobility Goal, Additional Goal adheres to psternal precautions for transfer Goal: Gait Training Goal Stand Alone Therapy Goal Outcome: Ongoing (Interventions Implemented as Appropriate) 07/12/17 1225 Gait Training Goal Gait Training Goal, Date Established 07/12/17 Gait Training Goal, Time to Achieve 2 - 3 days Gait Training Goal, [place] supervision required Gait Training Goal, Assist [...] 3 days Transfer Training Goal, Activity Type ily-kj-xvgok/tltfi-ed-sap;rnh-nb-pcxzb/inuve-cd-xab;toilet Transfer Train Goal, [place] supervision required Transfer Training Goal, Additional Goal adheres to sternal precautions during transfer Consult Note - Octavia Vaughn RN - 07/12/2017 10:50 AM EST [facility] CARDIAC REHABILITATION Gregory Hoang was seen today regarding participation in the outpatient Phase 2 Cardiac Rehabilitation [address] [facility]. The patient agrees to a [...] IV site, amio to other piv and TENANT COORDINATOR at bedside to help assess, IV removed. [...] staff, he stood and marched in place. [place] weak, wanting to sit back down. Remained [...] Length of Hospitalization: 8 Current Decision-Making Capacity: ITTUS -pt intubated and sedated with IABP in [...] Health/Prescription Coverage: Primary Insurance: MEDICARE Secondary Insurance: [place] Prescription Coverage: yes Preferred Pharmacy: [facility] [place] Other: none Primary Care Provider: Lovely Vicente MD [phone] Patient/Caregiver Goals of Treatment:live and get my breath back Potential Needs for Transition of Care: Rehab/SNF: [facility] Home Health: NA DME: TBD Dialysis: na Community Resources: available Transportation: yes Other: none Anticipated Barriers to Discharge/Special Considerations: none Plan: Likely SNF Rehab before home A member of the Care Management team will continue to monitor progress, follow for continuity of care and assist with transition of care planning. ERLIN Weiss Pager: [phone] Consult Note - Katerin Azul RN - [...] management and to provide a review of long term acute care registered nurse diabetes care. Diabetes History: Gregory Hoang has [...] potential to d/c gtt and start CF. [facility] diabetes care: Medications - Outpatient treatment regimen recommendations pending based on the hospital course. Monitoring - continue BG tid ac & hs Diet - low fat/low carb diet Exercise - weight-bearing exercise 30 min/day, as tolerated Thank you for allowing us to provide care for your patient W/E coverage, Dr. Jeane Tatum, pager [phone] Katerin Azul APRN Endocrinology Diabetes Management Pager [phone] Plan of Care - Walt Stephanie Wyatt [...] MD - 07/07/2017 6:27 PM EST [facility] Operative Note Patient Name: Gregory Hoang : [id number] MR#: [id number] Case Date: 07/07/2017 Surgeon: Surgeon(s) and Role: * Yuan Webber MD - Primary * Michael Drake PA - Physician Tool And Die Designer * Linda Flores PA - Physician Tool And Die Designer Preoperative diagnosis: 3VD Postoperative diagnosis: CAD, severe [...] Operative Note Patient Name: Gregory Hoang : [id number] MR#: [id number] Case Date: 07/07/2017 Surgeon: Surgeon(s) and Role: * Yuan Webber MD - Primary * Michael Drake PA - Physician Tool And Die Designer * Linda Flores PA - Physician Tool And Die Designer Preoperative diagnosis: 3VD Postoperative diagnosis: CAD, severe [...] Full Code Katty Hahn, MS3 [facility] at [facility] Cardiology S1 (Pager [phone]) Plan of Care - Emelia Ibarra RN [...] performed by Manny Mcknight MD at [facility] MAIN OR ??? PRO COLONOSCOPY, REMV LESN, SNARE 01/16/2014 COLONOSCOPY, POLYPECTOMY, REMOVAL LESION BY SNARE performed by Nohemi Jaimes MD at [facility] ENDOSCOPY ??? PRO THYROIDECTOMY 03/28/2013 THYROIDECTOMY, TOTAL OR COMPLETE performed by Manny Mcknight MD at 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 [...] Nobles MD [facility] [address] [place], [place] [address] (Wo rk) 05/28/2022 Appointment Cardiology Zulma Dolan MD [facility] [address] [place], [place] [address] (Wo rk) 05/28/2022 Laboratory Appointment Lab 05/28/2022 Office Visit Cardiology Zulma Dolan MD [facility] [place] [address] Liz Poole PA [facility] [place] [address] 06/10/2022 Office Visit Dermatology Laura Scherer MD [facility] DR TEJA GR-DERMAT OLOG[place], [place] [address] (Wo rk) Scheduled Orders [...] are i n the results section. SECURITY OFFICERS AND GUARDS SCAN 07/15/2017 12:00 Res ults for this [...] 07/08/2017 4:00 Results f or this ([facility]) AM EST procedure are i n the [...] Yes 07/07/2017 1:35 CAD VEIN(S) FOR [facility]G [facility] PM [facility] 0.31) @CABG, TWO VENOUS GRAFTS Yes 07/07/2017 1:35 CAD & ARTERIAL GRAFT ([facility] PM EST 7.93) @CABG, USING ARTERIAL Yes 07/07/2017 1:35 CAD GRAFT;SINGLE ARTERIAL PM EST GRAFT ([facility] 33.75) PREPARE COAG FACTORS STAT 07/07/2017 1:25 [...] 07/06/2017 7:40 Results f or this ([facility]) PM EST procedure are i n the [...] 07/06/2017 2:10 Results f or this ([facility]) PM EST procedure are i n the [...] TYPE AND SCREEN Routine 07/06/2017 12:00 ([facility]/SHANDA) PM EST APTT STAT 07/06/2017 11:24 Results [...] 07/06/2017 8:10 Results f or this ([facility]) AM EST procedure are i n the [...] 07/05/2017 4:55 Results f or this ([facility]) PM EST [...] [place] at 08/19/2017 10:30 AM 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 ORDERABLES SCAN DOC: SECURITY OFFICERS AND GUARDS (07/15/2017 12:00 AM EST) Narrative 07/15/2017 12:00 [...] Signature POC Glucose 186 65 - 199 [facility] mg/dL [facility] Comment: Supplemental ranges: <140 mg/dL before meals <180 mg/dL all other times of the day Specimen Anatomical Collection Method Collection Time Receive d Time (Source) Location / / Volume Laterality Blood specimen 07/14/2017 11:56 7 (specimen) AM EST 11:56 AM EST Yuan Webber MD POINT OF CARE TEST ORDERABLE S Performing Organization Address City/State/ZIP [place] [address] POCT Glucose (07/14/2017 7:52 AM EST) athologist Signature POC Glucose 126 65 - 199 [facility] mg/dL [facility] Comment: Supplemental ranges: <140 mg/dL before meals <180 mg/dL all other times of the day Specimen Anatomical Collection Method Collection Time Receive d Time (Source) Location / / Volume Laterality Blood specimen 07/14/2017 7:52 AM 017 7:52 (specimen) EST AM EST Yuan Webber MD POINT OF CARE TEST ORDERABLE S Performing Organization Address City/[facility]/ZIP [place] [address] (ABNORMAL) Prothrombin Time (07/14/2017 4:46 AM EST) P athologist Signature PT 26.4 (H) 11.8 - 14.0 [facility] LABORATORY INR 2.4 (H) 0.9 - 1.1 [facility] [...] Address City/State/ZIP Code Phon e Number [address] Potassium (07/14/2017 4:46 AM EST) athologist Signature Potassium 4.3 3.5 - 5.0 [facility] mmol/L [facility] Comment: Please note: ??Patients [...] APRN CHEMISTRY ORDERABLES Performing Organization Address City/[facility] Code Phon e Number [address] POCT Glucose (07/14/2017 4:34 AM EST) athologist Signature POC Glucose 115 65 - 199 [facility] mg/dL [facility] Comment: Supplemental ranges: <140 mg/dL before meals <180 mg/dL all other times of the day Specimen Anatomical Collection Method Collection Time Receive d Time (Source) Location / / Volume Laterality Blood specimen 07/14/2017 4:34 AM 017 4:34 (specimen) EST AM EST Yuan Webber MD POINT OF CARE TEST ORDERABLE S Performing Organization Address City/[facility]/ZIP [place] [address] POCT Glucose (07/13/2017 11:33 PM EST) athologist Signature POC Glucose 132 65 - 199 [place] mg/dL [facility] Comment: Supplemental ranges: <140 mg/dL before meals <180 mg/dL all other times of the day Specimen Anatomical Collection Method Collection Time Receive d Time (Source) Location / / Volume Laterality Blood specimen 07/13/2017 11:33 7 (specimen) PM EST 11:33 PM EST Yuan Webber MD POINT OF CARE TEST ORDERABLE S Performing Organization Address City/[facility]/ZIP [place] [address] POCT Glucose (07/13/2017 9:25 PM EST) athologist Signature POC Glucose 121 65 - 199 [facility] mg/dL [facility] Comment: Supplemental ranges: <140 mg/dL before meals <180 mg/dL all other times of the day Specimen Anatomical Collection Method Collection Time Receive d Time (Source) Location / / Volume Laterality Blood specimen 07/13/2017 9:25 PM 017 9:25 (specimen) EST PM EST Yuan Webber MD POINT OF CARE TEST ORDERABLE S Performing Organization Address City/State/ZIP Code Phon e Number [address] POCT Glucose (07/13/2017 4:55 PM EST) athologist Signature POC Glucose 79 65 - 199 [place] mg/dL [facility] Comment: Supplemental ranges: <140 mg/dL before meals <180 mg/dL all other times of the day Specimen Anatomical Collection Method Collection Time Receive d Time (Source) Location / / Volume Laterality Blood specimen 07/13/2017 4:55 PM 017 4:55 (specimen) EST PM EST Yuan Webber MD POINT OF CARE TEST ORDERABLE S Performing Organization Address City/State/ZIP Code Phon e Number [address] POCT Glucose (07/13/2017 11:16 AM EST) athologist Signature POC Glucose 163 65 - 199 [place] mg/dL [facility] Comment: Supplemental ranges: <140 mg/dL before meals <180 mg/dL all other times of the day Specimen Anatomical Collection Method Collection Time Receive d Time (Source) Location / / Volume Laterality Blood specimen 07/13/2017 11:16 7 (specimen) AM EST 11:16 AM EST Yuan Webber MD POINT OF CARE TEST ORDERABLE S Performing Organization Address City/State/ZIP [place] [address] POCT Glucose (07/13/2017 8:07 AM EST) athologist Signature POC Glucose 96 65 - 199 [facility]dL [facility] Comment: Supplemental ranges: <140 mg/dL before meals <180 mg/dL all other times of the day Specimen Anatomical Collection Method Collection Time Receive d Time (Source) Location / / Volume Laterality Blood specimen 07/13/2017 8:07 AM 017 8:07 (specimen) EST AM EST Yuan Webber MD POINT OF CARE TEST ORDERABLE S Performing Organization Address City/State/ZIP [place] [address] (ABNORMAL) Prothrombin Time (07/13/2017 4:26 AM EST) athologist Signature PT 20.8 (H) 11.8 - 14.0 [facility] LABORATORY INR 1.8 (H) 0.9 - 1.1 [facility] [...] Organization Address City/State/ZIP [place] [address] (ABNORMAL) Basic Metabolic Panel (non-fasting) (07/13/2017 4:26 AM EST) athologist Signature Glucose Lvl 95 65 - 199 [facility] mg/dL [facility] Comment: Diabetes: [...] or in patients with acute kidney failure. [email or web address]/DHnkdep http://[employer]/DHMCnkf Specimen Anatomical Collection Method Collection Time Receive d Time (Source) Location / / Volume Laterality Blood specimen 07/13/2017 4:26 AM 017 4:46 (specimen) EST AM EST Resulting Agency Comment Spec In Lab Makayla Wilson APRN CHEMISTRY ORDERABLES Performing Organization Address City/State/[place] [address] POCT Glucose (07/13/2017 3:52 AM EST) P athologist Signature POC Glucose 93 65 - 199 [facility] mg/dL [facility] Comment: Supplemental ranges: <140 mg/dL before meals <180 mg/dL all other times of the day Specimen Anatomical Collection Method Collection Time Receive d Time (Source) Location / / Volume Laterality Blood specimen 07/13/2017 3:52 AM 017 3:52 (specimen) EST AM EST Yuan Webber MD POINT OF CARE TEST ORDERABLE S Performing Organization Address City/State/ZIP Code Phon e Number [address] POCT Glucose (07/13/2017 12:21 AM EST) athologist Signature POC Glucose 80 65 - 199 [place] mg/dL [facility] Comment: Supplemental ranges: <140 mg/dL before meals <180 mg/dL all other times of the day Specimen Anatomical Collection Method Collection Time Receive d Time (Source) Location / / Volume Laterality Blood specimen 07/13/2017 12:21 7 (specimen) AM EST 12:21 AM EST Yuan Webber MD POINT OF CARE TEST ORDERABLE S Performing Organization Address City/[facility]/ZIP Code Phon e Number [address] POCT Glucose (07/12/2017 8:22 PM EST) athologist Signature POC Glucose 119 65 - 199 [place] mg/dL [facility] Comment: Supplemental ranges: <140 mg/dL before meals <180 mg/dL all other times of the day Specimen Anatomical Collection Method Collection Time Receive d Time (Source) Location / / Volume Laterality Blood specimen 07/12/2017 8:22 PM 017 8:22 (specimen) EST PM EST Yuan Webber MD POINT OF CARE TEST ORDERABLE S Performing Organization Address City/State/ZIP [place] [address] POCT Glucose (07/12/2017 4:02 PM EST) athologist Signature POC Glucose 114 65 - 199 [place] mg/dL [facility] Comment: Supplemental ranges: <140 mg/dL before meals <180 mg/dL all other times of the day Specimen Anatomical Collection Method Collection Time Receive d Time (Source) Location / / Volume Laterality Blood specimen 07/12/2017 4:02 PM 017 4:02 (specimen) EST PM EST Yuan Webber MD POINT OF CARE TEST ORDERABLE S Performing Organization Address City/State/ZIP Code Phon e Number [address] POCT Glucose (07/12/2017 11:28 AM EST) athologist Signature POC Glucose 164 65 - 199 [facility]/dL [facility] Comment: Supplemental ranges: <140 mg/dL before meals <180 mg/dL all other times of the day Specimen Anatomical Collection Method Collection Time Receive d Time (Source) Location / / Volume Laterality Blood specimen 07/12/2017 11:28 7 (specimen) AM EST 11:28 AM EST Yuan Webber MD POINT OF CARE TEST ORDERABLE S Performing Organization Address City/State/ZIP Code Phon e Number [address] POCT Glucose (07/12/2017 7:34 AM EST) athologist Signature POC Glucose 109 65 - 199 [facility] Comment: Supplemental ranges: <140 mg/dL before meals <180 mg/dL all other times of the day Specimen Anatomical Collection Method Collection Time Receive d Time (Source) Location / / Volume Laterality Blood specimen 07/12/2017 7:34 AM 017 7:34 (specimen) EST AM EST Yuan Webber MD POINT OF CARE TEST ORDERABLE S Performing Organization Address City/State/ZIP [place] [address] (ABNORMAL) Basic Metabolic Panel (non-fasting) (07/12/2017 4:11 AM EST) athologist Signature Glucose Lvl 92 65 - 199 [facility] mg[facility] Comment: Diabetes: [...] 107 mmol/L [facility] CO2 Not Perf 22 - 31 mmol/L [facility] Comment: Add-on request. Sample [...] or in patients with acute kidney failure. http://[employer]/DHnkdep http://[employer]/DHMCnkf Specimen Anatomical Collection Method Collection Time Receive d Time (Source) Location / / Volume Laterality Blood specimen 07/12/2017 4:11 AM 017 8:57 (specimen) EST AM EST Resulting Agency Comment Spec In Lab Makayla Wilson STACIE CHEMISTRY ORDERABLES Performing Organization Address City/State/[place] [address] (ABNORMAL) Prothrombin Time (07/12/2017 4:11 AM EST) P athologist Signature PT 15.4 (H) 11.8 - 14.0 [facility] LABORATORY INR 1.2 (H) 0.9 - 1.1 [facility] [...] Wilson APRN HEMATOLOGY ORDERABLES Performing Organization Address City/[facility]/ZIP [place] [address] Potassium (07/12/2017 4:11 AM EST) P athologist Signature Potassium 3.8 3.5 - 5.0 [facility] mmol/L [facility] Comment: Please note: ??Patients [...] Wilson STACIE CHEMISTRY ORDERABLES Performing Organization Address City/[facility]/ZIP [place] [address] POCT Glucose (07/12/2017 4:10 AM EST) athologist Signature POC Glucose 90 65 - 199 [facility] mg/dL [facility] Comment: Supplemental ranges: <140 mg/dL before meals <180 mg/dL all other times of the day Specimen Anatomical Collection Method Collection Time Receive d Time (Source) Location / / Volume Laterality Blood specimen 07/12/2017 4:10 AM 017 4:10 (specimen) EST AM EST Yuan Webber MD POINT OF CARE TEST ORDERABLE S Performing Organization Address City/[facility]/ZIP [place] [address] POCT Glucose (07/11/2017 11:57 PM EST) athologist Signature POC Glucose 98 65 - 199 [facility] Comment: Supplemental ranges: <140 mg/dL before meals <180 mg/dL all other times of the day Specimen Anatomical Collection Method Collection Time Receive d Time (Source) Location / / Volume Laterality Blood specimen 07/11/2017 11:57 7 (specimen) PM EST 11:57 PM EST Yuan Webber MD POINT OF CARE TEST ORDERABLE S Performing Organization Address City/State/ZIP [place] [address] POCT Glucose (07/11/2017 8:32 PM EST) athologist Signature POC Glucose 146 65 - 199 [facility] mg[facility]dL [facility] Comment: Supplemental ranges: <140 mg/dL before meals <180 mg/dL all other times of the day Specimen Anatomical Collection Method Collection Time Receive d Time (Source) Location / / Volume Laterality Blood specimen 07/11/2017 8:32 PM 017 8:32 (specimen) EST PM EST Yuan Webber MD POINT OF CARE TEST ORDERABLE S Performing Organization Address City/State/ZIP [place] [address] XR Chest PA & [...] e xtubated, left chest tube removed, and Moshannon-Suzi catheter removed since the study. Atelectasis at [...] e xtubated, left chest tube removed, and Moshannon-Suzi catheter removed since the study. Atelectasis at [...] POC Glucose 223 (H) 65 - 199 [facility] mg/dL [facility] Comment: Supplemental ranges: <140 mg/dL before meals <180 mg/dL all other times of the day Specimen Anatomical Collection Method Collection Time Receive d Time (Source) Location / / Volume Laterality Blood specimen 07/11/2017 4:05 PM 017 4:05 (specimen) EST PM EST Yuan Webber MD POINT OF CARE TEST ORDERABLE S Performing Organization Address City/State/[place] [address] POCT Glucose (07/11/2017 11:55 AM EST) athologist Signature POC Glucose 176 65 - 199 [facility] mg/dL [facility] Comment: Supplemental ranges: <140 mg/dL before meals <180 mg/dL all other times of the day Specimen Anatomical Collection Method Collection Time Receive d Time (Source) Location / / Volume Laterality Blood specimen 07/11/2017 11:55 12/17/201 7 (specimen) AM EST 11:55 AM EST Yuan Webber MD POINT OF CARE TEST ORDERABLE S Performing Organization Address City/State/ZIP Code Phon e Number [address] POCT Glucose (07/11/2017 7:53 AM EST) athologist Signature POC Glucose 189 65 - 199 [facility] mg/dL [facility] Comment: Supplemental ranges: <140 mg/dL before meals <180 mg/dL all other times of the day Specimen Anatomical Collection Method Collection Time Receive d Time (Source) Location / / Volume Laterality Blood specimen 07/11/2017 7:53 AM 017 7:53 (specimen) EST AM EST Yuan Webber MD POINT OF CARE TEST ORDERABLE S Performing Organization Address City/[facility]/ZIP [place] [address] POCT Glucose (07/11/2017 4:22 AM EST) athologist Signature POC Glucose 151 65 - 199 [place] mg/dL [facility] Comment: Supplemental ranges: <140 mg/dL before meals <180 mg/dL all other times of the day Specimen Anatomical Collection Method Collection Time Receive d Time (Source) Location / / Volume Laterality Blood specimen 07/11/2017 4:22 AM 017 4:22 (specimen) EST AM EST Yuan Webber MD POINT OF CARE TEST ORDERABLE S Performing Organization Address City/[facility]/ZIP [place] [address] Potassium (07/11/2017 2:20 AM EST) athologist Signature Potassium 4.5 3.5 - 5.0 [facility] mmol/L [facility] Comment: Please note: ??Patients [...] Address City/State/ZIP Code Phon e Number [address] POCT Glucose (07/11/2017 12:17 AM EST) athologist Signature POC Glucose 162 65 - 199 [place] mg/dL [facility] Comment: Supplemental ranges: <140 mg/dL before meals <180 mg/dL all other times of the day Specimen Anatomical Collection Method Collection Time Receive d Time (Source) Location / / Volume Laterality Blood specimen 07/11/2017 12:17 7 (specimen) AM EST 12:17 AM EST Yuan Webber MD POINT OF CARE TEST ORDERABLE S Performing Organization Address City/State/ZIP Code Phon e Number [address] POCT Glucose (07/10/2017 8:47 PM EST) athologist Signature POC Glucose 191 65 - 199 [place] mg/dL [facility] Comment: Supplemental ranges: <140 mg/dL before meals <180 mg/dL all other times of the day Specimen Anatomical Collection Method Collection Time Receive d Time (Source) Location / / Volume Laterality Blood specimen 07/10/2017 8:47 PM 017 8:47 (specimen) EST PM EST Yuan Webber MD POINT OF CARE TEST ORDERABLE S Performing Organization Address City/State/ZIP Code Phon e Number [address] POCT Glucose (07/10/2017 4:06 PM EST) athologist Signature POC Glucose 131 65 - 199 [facility] mg/dL [facility] Comment: Supplemental ranges: <140 mg/dL before meals <180 mg/dL all other times of the day Specimen Anatomical Collection Method Collection Time Receive d Time (Source) Location / / Volume Laterality Blood specimen 07/10/2017 4:06 PM 017 4:06 (specimen) EST PM EST Yuan Webber MD POINT OF CARE TEST ORDERABLE S Performing Organization Address City/[facility]/ZIP [place] [address] POCT Glucose (07/10/2017 3:08 PM EST) athologist Signature POC Glucose 151 65 - 199 [place] mg/dL [facility] Comment: Supplemental ranges: <140 mg/dL before meals <180 mg/dL all other times of the day Specimen Anatomical Collection Method Collection Time Receive d Time (Source) Location / / Volume Laterality Blood specimen 07/10/2017 3:08 PM 017 3:08 (specimen) EST PM EST Yuan Webber MD POINT OF CARE TEST ORDERABLE S Performing Organization Address City/[facility]/ZIP [place] [address] POCT Glucose (07/10/2017 2:25 PM EST) athologist Signature POC Glucose 146 65 - 199 [place] mg/dL [facility] Comment: Supplemental ranges: <140 mg/dL before meals <180 mg/dL all other times of the day Specimen Anatomical Collection Method Collection Time Receive d Time (Source) Location / / Volume Laterality Blood specimen 07/10/2017 2:25 PM 017 2:25 (specimen) EST PM EST Yuan Webber MD POINT OF CARE TEST ORDERABLE S Performing Organization Address City/State/ZIP [place] [address] POCT Glucose (07/10/2017 1:23 PM EST) athologist Signature POC Glucose 166 65 - 199 [facility] mg/dL [facility] Comment: Supplemental ranges: <140 mg/dL before meals <180 mg/dL all other times of the day Specimen Anatomical Collection Method Collection Time Receive d Time (Source) Location / / Volume Laterality Blood specimen 07/10/2017 1:23 PM 017 1:23 (specimen) EST PM EST Yuan Webber MD POINT OF CARE TEST ORDERABLE S Performing Organization Address City/State/ZIP Code Phon e Number [address] POCT Glucose (07/10/2017 11:52 AM EST) P athologist Signature POC Glucose 157 65 - 199 [facility] mg/dL [facility] Comment: Supplemental ranges: <140 mg/dL before meals <180 mg/dL all other times of the day Specimen Anatomical Collection Method Collection Time Receive d Time (Source) Location / / Volume Laterality Blood specimen 07/10/2017 11:52 7 (specimen) AM EST 11:52 AM EST Yuan Webber MD POINT OF CARE TEST ORDERABLE S Performing Organization Address City/[facility]/ZIP Code Phon e Number [address] POCT Glucose (07/10/2017 11:01 AM EST) athologist Signature POC Glucose 158 65 - 199 [place] mg/dL [facility] Comment: Supplemental ranges: <140 mg/dL before meals <180 mg/dL all other times of the day Specimen Anatomical Collection Method Collection Time Receive d Time (Source) Location / / Volume Laterality Blood specimen 07/10/2017 11:01 7 (specimen) AM EST 11:01 AM EST Yuan Webber MD POINT OF CARE TEST ORDERABLE S Performing Organization Address City/State/ZIP [place] [address] POCT Glucose (07/10/2017 9:54 AM EST) athologist Signature POC Glucose 160 65 - 199 [place] mg/dL [facility] Comment: Supplemental ranges: <140 mg/dL before meals <180 mg/dL all other times of the day Specimen Anatomical Collection Method Collection Time Receive d Time (Source) Location / / Volume Laterality Blood specimen 07/10/2017 9:54 AM 017 9:54 (specimen) EST AM EST Yuan Webber MD POINT OF CARE TEST ORDERABLE S Performing Organization Address City/State/ZIP Code Phon e Number [address] POCT Glucose (07/10/2017 8:58 AM EST) P athologist Signature POC Glucose 183 65 - 199 [place] mg/dL [facility] Comment: Supplemental ranges: <140 mg/dL before meals <180 mg/dL all other times of the day Specimen Anatomical Collection Method Collection Time Receive d Time (Source) Location / / Volume Laterality Blood specimen 07/10/2017 8:58 AM 017 8:58 (specimen) EST AM EST Yuan Webber MD POINT OF CARE TEST ORDERABLE S Performing Organization Address City/State/ZIP Code Phon e Number [address] POCT Glucose (07/10/2017 8:01 AM EST) athologist Signature POC Glucose 173 65 - 199 [place] mg/dL [facility] Comment: Supplemental ranges: <140 mg/dL before meals <180 mg/dL all other times of the day Specimen Anatomical Collection Method Collection Time Receive d Time (Source) Location / / Volume Laterality Blood specimen 07/10/2017 8:01 AM 017 8:01 (specimen) EST AM EST Yuan Webber MD POINT OF CARE TEST ORDERABLE S Performing Organization Address City/State/ZIP Code Phon e Number [address] POCT Glucose (07/10/2017 7:05 AM EST) athologist Signature POC Glucose 166 65 - 199 [place] mg/dL [facility] Comment: Supplemental ranges: <140 mg/dL before meals <180 mg/dL all other times of the day Specimen Anatomical Collection Method Collection Time Receive d Time (Source) Location / / Volume Laterality Blood specimen 07/10/2017 7:05 AM 017 7:05 (specimen) EST AM EST Yuan Webber MD POINT OF CARE TEST ORDERABLE S Performing Organization Address City/State/ZIP Code Phon e Number [address] POCT Glucose (07/10/2017 6:00 AM EST) P athologist Signature POC Glucose 162 65 - 199 [facility] Comment: Supplemental ranges: <140 mg/dL before meals <180 mg/dL all other times of the day Specimen Anatomical Collection Method Collection Time Receive d Time (Source) Location / / Volume Laterality Blood specimen 07/10/2017 6:00 AM 017 6:00 (specimen) EST AM EST Yuan Webber MD POINT OF CARE TEST ORDERABLE S Performing Organization Address City/State/ZIP Code Phon e Number [address] (ABNORMAL) Differential, Automated (07/10/2017 4:28 AM EST) Patholo gist Method Time Signature Neutrophils % 87.9 % [facility] Neutr Abs (ANC) 10.70 (H) 1.70 - [facility] 6.10 [facility] x10(3)/[facility] L LABORATORY Lymphocytes % 3.9 % [facility] Lymphocytes Abs 0.5 (L) 0.9 - 3.2 [facility] x10(3)/[facility] LABORATORY Monocytes % 7.0 % [facility] Monocyte Abs 0.8 0.3 - 0.9 [facility] x10(3)/[facility] LABORATORY Eosinophils % 0.3 % [facility] Eosinophils Abs 0.0 0.0 - 0.4 [facility] x10(3)/[facility] LABORATORY Basophils % 0.2 % [facility] Basophils Abs 0.0 0.0 - 0.1 [facility] x10(3)/[facility] LABORATORY Immature Gran % 0.70 [...] Organization Address City/State/[place] [address] (ABNORMAL) Hemogram (07/10/2017 4:28 AM EST) Analysis Performed At Patho logist Time Signature WBC 12.2 (H) 4.0 - 9.5 [facility] x10(3)/[facility] LABORATORY RBC 3.31 (L) 4.58 - [facility] 5.54 [facility] x10(6)/[facility] LABORATORY Hemoglobin 9.8 (L) 13.7 - [facility] 16.5 gm/dL [facility] Hematocrit 30.0 (L) 40.5 - [facility] 48.5 % [facility] MCV 90.6 82.9 - [facility] 93.1 [facility] LABORATORY MCH 29.6 27.5 - [facility] 32.1 pg [facility] MCHC 32.7 32.0 - [facility] 35.7 gm/dL [facility] Platelets 135 (L) 145 - 357 [facility] x10(3)/[facility] LABORATORY RDWSD 50.8 (H) 36.0 - [facility] 45.0 [facility] LABORATORY RDWCV 15.4 (H) 11.4 - [facility] 13.8 % [facility] MPV 10.0 7.6 - 12.9 [facility] LABORATORY nRBC % Auto 0.0 % [facility] nRBC Abs Auto 0.000 0.000 - [facility] 0.000 [facility] x10(3)/[facility] LABORATORY Specimen Anatomical Collection Method Collection Time Receive d Time (Source) Location / / Volume Laterality Blood specimen 07/10/2017 4:28 AM 017 4:36 (specimen) EST AM EST Resulting Agency Comment Spec In Lab Yuan Webber MD HEMATOLOGY ORDERABLES Performing Organization Address City/State/[place] [address] (ABNORMAL) Basic Metabolic Panel (non-fasting) (07/10/2017 4:28 AM EST) athologist Signature Glucose Lvl 178 65 - 199 [facility] mg/dL [facility] Comment: Diabetes: [...] estions. Chloride 107 98 - 107 mmol/L [facility] [...] or in patients with acute kidney failure. [email or web address] [email or web address] Specimen Anatomical Collection Method Collection Time Receive d Time (Source) Location / / Volume Laterality Blood specimen 07/10/2017 4:28 AM 017 4:36 (specimen) EST AM EST Resulting Agency Comment Spec In Lab Yuan Webber MD CHEMISTRY ORDERABLES Performing Organization Address City/State/ZIP [place] [address] POCT Glucose (07/10/2017 4:26 AM EST) athologist Signature POC Glucose 176 65 - 199 [facility] mg/dL [facility] Comment: Supplemental ranges: <140 mg/dL before meals <180 mg/dL all other times of the day Specimen Anatomical Collection Method Collection Time Receive d Time (Source) Location / / Volume Laterality Blood specimen 07/10/2017 4:26 AM 017 4:26 (specimen) EST AM EST Yuan Webber MD POINT OF CARE TEST ORDERABLE S Performing Organization Address City/State/ZIP [place] [address] (ABNORMAL) POCT Glucose (07/10/2017 3:06 AM EST) athologist Signature POC Glucose 204 (H) 65 - 199 [facility] mg/dL [facility] Comment: Supplemental ranges: <140 mg/dL before meals <180 mg/dL all other times of the day Specimen Anatomical Collection Method Collection Time Receive d Time (Source) Location / / Volume Laterality Blood specimen 07/10/2017 3:06 AM 017 3:06 (specimen) EST AM EST Yuan Webber MD POINT OF CARE TEST ORDERABLE S Performing Organization Address City/State/ZIP [place] [address] (ABNORMAL) POCT Glucose (07/10/2017 2:10 AM EST) athologist Signature POC Glucose 203 (H) 65 - 199 [place] mg/dL [facility] Comment: Supplemental ranges: <140 mg/dL before meals <180 mg/dL all other times of the day Specimen Anatomical Collection Method Collection Time Receive d Time (Source) Location / / Volume Laterality Blood specimen 07/10/2017 2:10 AM 017 2:10 (specimen) EST AM EST Yuan Webber MD POINT OF CARE TEST ORDERABLE S Performing Organization Address City/State/ZIP Code Phon e Number [address] POCT Glucose (07/10/2017 1:09 AM EST) P athologist Signature POC Glucose 196 65 - 199 [place] mg/dL [facility] Comment: Supplemental ranges: <140 mg/dL before meals <180 mg/dL all other times of the day Specimen Anatomical Collection Method Collection Time Receive d Time (Source) Location / / Volume Laterality Blood specimen 07/10/2017 1:09 AM 017 1:09 (specimen) EST AM EST Yuan Webber MD POINT OF CARE TEST ORDERABLE S Performing Organization Address City/State/ZIP [place] [address] POCT Glucose (07/10/2017 12:10 AM EST) athologist Signature POC Glucose 173 65 - 199 [place] mg/dL [facility] Comment: Supplemental ranges: <140 mg/dL before meals <180 mg/dL all other times of the day Specimen Anatomical Collection Method Collection Time Receive d Time (Source) Location / / Volume Laterality Blood specimen 07/10/2017 12:10 7 (specimen) AM EST 12:10 AM EST Yuan Webber MD POINT OF CARE TEST ORDERABLE S Performing Organization Address City/State/ZIP Code Phon e Number [address] POCT Glucose (07/09/2017 11:01 PM EST) P athologist Signature POC Glucose 140 65 - 199 [facility] mg/dL [facility] Comment: Supplemental ranges: <140 mg/dL before meals <180 mg/dL all other times of the day Specimen Anatomical Collection Method Collection Time Receive d Time (Source) Location / / Volume Laterality Blood specimen 07/09/2017 11:01 7 (specimen) PM EST 11:01 PM EST Yuan Webber MD POINT OF CARE TEST ORDERABLE S Performing Organization Address City/State/ZIP Code Phon e Number [address] POCT Glucose (07/09/2017 10:05 PM EST) athologist Signature POC Glucose 144 65 - 199 [place] mg/dL [facility] Comment: Supplemental ranges: <140 mg/dL before meals <180 mg/dL all other times of the day Specimen Anatomical Collection Method Collection Time Receive d Time (Source) Location / / Volume Laterality Blood specimen 07/09/2017 10:05 7 (specimen) PM EST 10:05 PM EST Yuan Webber MD POINT OF CARE TEST ORDERABLE S Performing Organization Address City/[facility]/ZIP Code Phon e Number [address] POCT Glucose (07/09/2017 9:31 PM EST) athologist Signature POC Glucose 121 65 - 199 [place] mg/dL [facility] Comment: Supplemental ranges: <140 mg/dL before meals <180 mg/dL all other times of the day Specimen Anatomical Collection Method Collection Time Receive d Time (Source) Location / / Volume Laterality Blood specimen 07/09/2017 9:31 PM 017 9:31 (specimen) EST PM EST Yuan Webber MD POINT OF CARE TEST ORDERABLE S Performing Organization Address City/State/ZIP [place] [address] POCT Glucose (07/09/2017 9:03 PM EST) athologist Signature POC Glucose 98 65 - 199 [place] mg/dL [facility] Comment: Supplemental ranges: <140 mg/dL before meals <180 mg/dL all other times of the day Specimen Anatomical Collection Method Collection Time Receive d Time (Source) Location / / Volume Laterality Blood specimen 07/09/2017 9:03 PM 017 9:03 (specimen) EST PM EST Yuan Webber MD POINT OF CARE TEST ORDERABLE S Performing Organization Address City/State/ZIP Code Phon e Number [address] POCT Glucose (07/09/2017 8:09 PM EST) athologist Signature POC Glucose 117 65 - 199 [place] mg/dL [facility] Comment: Supplemental ranges: <140 mg/dL before meals <180 mg/dL all other times of the day Specimen Anatomical Collection Method Collection Time Receive d Time (Source) Location / / Volume Laterality Blood specimen 07/09/2017 8:09 PM 017 8:09 (specimen) EST PM EST Yuan Webber MD POINT OF CARE TEST ORDERABLE S Performing Organization Address City/[facility]/ZIP Code Phon e Number [address] POCT Glucose (07/09/2017 5:40 PM EST) athologist Signature POC Glucose 155 65 - 199 [place] mg/dL [facility] Comment: Supplemental ranges: <140 mg/dL before meals <180 mg/dL all other times of the day Specimen Anatomical Collection Method Collection Time Receive d Time (Source) Location / / Volume Laterality Blood specimen 07/09/2017 5:40 PM 017 5:40 (specimen) EST PM EST Yuan Webber MD POINT OF CARE TEST ORDERABLE S Performing Organization Address City/[facility]/ZIP Code Phon e Number [address] POCT Glucose (07/09/2017 4:24 PM EST) athologist Signature POC Glucose 164 65 - 199 [place] mg/dL [facility] Comment: Supplemental ranges: <140 mg/dL before meals <180 mg/dL all other times of the day Specimen Anatomical Collection Method Collection Time Receive d Time (Source) Location / / Volume Laterality Blood specimen 07/09/2017 4:24 PM 017 4:24 (specimen) EST PM EST Yuan Webber MD POINT OF CARE TEST ORDERABLE S Performing Organization Address City/State/ZIP [place] [address] POCT Glucose (07/09/2017 3:19 PM EST) athologist Signature POC Glucose 166 65 - 199 [place] mg/dL [facility] Comment: Supplemental ranges: <140 mg/dL before meals <180 mg/dL all other times of the day Specimen Anatomical Collection Method Collection Time Receive d Time (Source) Location / / Volume Laterality Blood specimen 07/09/2017 3:19 PM 017 3:19 (specimen) EST PM EST Yuan Webber MD POINT OF CARE TEST ORDERABLE S Performing Organization Address City/[facility]/ZIP [place] [address] POCT Glucose (07/09/2017 2:26 PM EST) athologist Signature POC Glucose 179 65 - 199 [facility] mg/dL [facility] Comment: Supplemental ranges: <140 mg/dL before meals <180 mg/dL all other times of the day Specimen Anatomical Collection Method Collection Time Receive d Time (Source) Location / / Volume Laterality Blood specimen 07/09/2017 2:26 PM 017 2:26 (specimen) EST PM EST Yuan Webber MD POINT OF CARE TEST ORDERABLE S Performing Organization Address City/[facility]/ZIP Code Phon e Number [place] [address] (ABNORMAL) POCT Glucose (07/09/2017 1:29 PM EST) athologist Signature POC Glucose 210 (H) 65 - 199 [place]HA[place] mg/dL [facility] Comment: Supplemental ranges: <140 mg/dL before meals <180 mg/dL all other times of the day Specimen Anatomical Collection Method Collection Time Receive d Time (Source) Location / / Volume Laterality Blood specimen 07/09/2017 1:29 PM 017 1:29 (specimen) EST PM EST Yuan Webber MD POINT OF CARE TEST ORDERABLE S Performing Organization Address City/State/ZIP Code Phon e Number [address] POCT Glucose (07/09/2017 12:20 PM EST) P athologist Signature POC Glucose 172 65 - 199 [facility] Comment: Supplemental ranges: <140 mg/dL before meals <180 mg/dL all other times of the day Specimen Anatomical Collection Method Collection Time Receive d Time (Source) Location / / Volume Laterality Blood specimen 07/09/2017 12:20 7 (specimen) PM EST 12:20 PM EST Yuan Webber MD POINT OF CARE TEST ORDERABLE S Performing Organization Address City/State/ZIP Code Phon e Number [address] POCT Glucose (07/09/2017 11:24 AM EST) P athologist Signature POC Glucose 156 65 - 199 [facility] Comment: Supplemental ranges: <140 mg/dL before meals <180 mg/dL all other times of the day Specimen Anatomical Collection Method Collection Time Receive d Time (Source) Location / / Volume Laterality Blood specimen 07/09/2017 11:24 7 (specimen) AM EST 11:24 AM EST Yuan Webber MD POINT OF CARE TEST ORDERABLE S Performing Organization Address City/State/ZIP Code Phon e Number [place] [id number] POCT Glucose (07/09/2017 11:11 AM EST) P athologist Signature POC Glucose 172 65 - 199 [facility] Comment: Supplemental ranges: <140 mg/dL before meals <180 mg/dL all other times of the day Specimen Anatomical Collection Method Collection Time Receive d Time (Source) Location / / Volume Laterality Blood specimen 07/09/2017 11:11 7 (specimen) AM EST 11:11 AM EST Yuan Webber MD POINT OF CARE TEST ORDERABLE S Performing Organization Address City/State/[place] [address] POCT Glucose (07/09/2017 10:08 AM EST) P athologist Signature POC Glucose 176 65 - 199 [place] mg/dL [facility] Comment: Supplemental ranges: <140 mg/dL before meals <180 mg/dL all other times of the day Specimen Anatomical Collection Method Collection Time Receive d Time (Source) Location / / Volume Laterality Blood specimen 07/09/2017 10:08 7 (specimen) AM EST 10:08 AM EST Yuan Webber MD POINT OF CARE TEST ORDERABLE S Performing Organization Address City/State/ZIP Code Phon e Number [address] POCT Glucose (07/09/2017 8:02 AM EST) athologist Signature POC Glucose 178 65 - 199 [facility] Comment: Supplemental ranges: <140 mg/dL before meals <180 mg/dL all other times of the day Specimen Anatomical Collection Method Collection Time Receive d Time (Source) Location / / Volume Laterality Blood specimen 07/09/2017 8:02 AM 017 8:02 (specimen) EST AM EST Yuan Webber MD POINT OF CARE TEST ORDERABLE S Performing Organization Address City/State/ZIP Code Phon e Number [address] (ABNORMAL) BLOOD GAS 2 ARTERIAL (07/09/2017 5:37 AM EST) Analysis Performed At Patho logist Time Signature pH Art 7.36 7.35 - [facility] 7.45 [facility] pCO2 Art 38 35 - 45 [facility] mmHg [facility] pO2 Art 79 (L) 85 - 104 [facility] mmHg [facility] HCO3 Art 20.9 20.0 - [facility] 26.0 [facility] mmol/L [facility] LABORATORY BE Art -4.6 (L) -3.0 - 3.0 [facility] mmol/L [facility] Hgb Blood Gas 10.5 (L) 13.7 - [facility] 16.5 gm/dL [facility] O2HB Art 93.8 (L) 94.0 - [facility] 97.0 % [facility] COHB Art 0.3 % [facility] Comment: Nonsmokers: 0.5-1.5% COHB Smokers: Variable, but usually less than 10% Toxic: 20-30% COHB Lethal: Greater than 60% COHB METHB Art 0.6 <=1.5 % [facility] Na Whole Blood 141 135 - 145 mmol/L [facility] K Whole Blood 4.5 3.5 - 5.0 mmol/L [facility] Comment: Please note: Patients with WBC >100,000 may have falsely elevated Potassium levels. Contact the Clinical Chemistry L aboratory if there are any questions. ICa Whole Blood 1.01 (L) 1.15 - 1.33 mmol/L [facility] Comment: Note: ??Total bilirubin higher than 20 m g/dL may lead to falsely low ionized calcium. CL Whole Blood 113 (H) 98 - 107 mmol/L [facility] Gluc Whole Bld 175 65 - 199 mg/dL [facility] Comment: Diabetes: >=200 mg/dL plus symp toms. Lactate WB 1.0 0.5 - 2.2 mmol/L [facility] FIO2 Art 40 % [facility] PF Ratio Art 198 [facility] Specimen Anatomical Collection Method Collection Time Receive d Time (Source) Location / / Volume Laterality Blood specimen 07/09/2017 5:37 AM 017 5:37 (specimen) EST AM EST Yuan Webber MD CHEMISTRY ORDERABLES Performing Organization Address City/State/[place] [address] POCT Glucose (07/09/2017 3:27 AM EST) P athologist Signature POC Glucose 192 65 - 199 [facility] mg/dL [facility] Comment: Supplemental ranges: <140 mg/dL before meals <180 mg/dL all other times of the day Specimen Anatomical Collection Method Collection Time Receive d Time (Source) Location / / Volume Laterality Blood specimen 07/09/2017 3:27 AM 017 3:27 (specimen) EST AM EST Yuan Webber MD POINT OF CARE TEST ORDERABLE S Performing Organization Address City/State/[place] [address] (ABNORMAL) Basic Metabolic Panel (non-fasting) (07/09/2017 2:30 AM EST) athologist Signature Glucose Lvl 179 65 - 199 [facility] mg/dL [facility] Comment: Diabetes: [...] Chloride 111 (H) 98 - 107 mmol/L [facility] [...] or in patients with acute kidney failure. [email or web address] [email or web address] Specimen Anatomical Collection Method Collection Time Receive d Time (Source) Location / / Volume Laterality Blood specimen Venous Draw / 07/09/2017 2:30 AM 2016 2:42 (specimen) Unknown EST AM EST Resulting Agency Comment Spec In Lab Yuan Webber MD CHEMISTRY ORDERABLES Performing Organization Address City/[facility]/ZIP [place] [address] (ABNORMAL) Potassium (07/09/2017 2:30 AM EST) P athologist Signature Potassium 5.1 (H) 3.5 - 5.0 [facility] mmol/L [facility] Comment: Please note: ??Patients [...] Address City/[facility]/ZIP [place] [address] (ABNORMAL) Hemogram (07/09/2017 2:30 AM EST) Analysis Performed At Patho logist Time Signature WBC 12.5 (H) 4.0 - 9.5 [facility] x10(3)/[facility] LABORATORY RBC 3.38 (L) 4.58 - [facility] 5.54 [facility] x10(6)/[facility] LABORATORY Hemoglobin 10.1 (L) 13.7 - [facility] 16.5 gm/dL [facility] Hematocrit 30.3 (L) 40.5 - [facility] 48.5 % [facility] MCV 89.6 82.9 - [facility] 93.1 fL [facility] MCH 29.9 27.5 - [facility] 32.1 pg [facility] MCHC 33.3 32.0 - [facility] 35.7 gm/dL [facility] Platelets 127 (L) 145 - 357 [facility] x10(3)/[facility] LABORATORY RDWSD 49.3 (H) 36.0 - [facility] 45.0 [facility] LABORATORY RDWCV 15.2 (H) 11.4 - [facility] 13.8 % [facility] MPV 9.9 7.6 - 12.9 [facility] LABORATORY nRBC % Auto 0.0 % [facility] nRBC Abs Auto 0.000 0.000 - [place] [place] 0.000 [facility] x10(3)/[facility] LABORATORY Specimen Anatomical Collection Method Collection Time Receive d Time (Source) Location / / Volume Laterality Blood specimen 07/09/2017 2:30 AM 017 2:41 (specimen) EST AM EST Resulting Agency Comment Spec In Lab Yuan Webber MD HEMATOLOGY ORDERABLES Performing Organization Address City/[facility]/ZIP Code Phon e Number [address] POCT Glucose (07/09/2017 2:10 AM EST) P athologist Signature POC Glucose 169 65 - 199 [facility] Comment: Supplemental ranges: <140 mg/dL before meals <180 mg/dL all other times of the day Specimen Anatomical Collection Method Collection Time Receive d Time (Source) Location / / Volume Laterality Blood specimen 07/09/2017 2:10 AM 017 2:10 (specimen) EST AM EST Yuan Webber MD POINT OF CARE TEST ORDERABLE S Performing Organization Address City/[facility]/ZIP Code Phon e Number [address] POCT Glucose (07/09/2017 1:01 AM EST) P athologist Signature POC Glucose 173 65 - 199 [facility]dL [facility] Comment: Supplemental ranges: <140 mg/dL before meals <180 mg/dL all other times of the day Specimen Anatomical Collection Method Collection Time Receive d Time (Source) Location / / Volume Laterality Blood specimen 07/09/2017 1:01 AM 017 1:01 (specimen) EST AM EST Yuan Webber MD POINT OF CARE TEST ORDERABLE S Performing Organization Address City/[facility]/ZIP [place] [address] Blood culture (07/09/2017 12:40 AM EST) [facility] gist Method Time Signature Blood Culture No growth BARBARA DAVIS at 5 days. [facility] Specimen Anatomical Collection Method Collection Time Receive d Time (Source) Location / / Volume Laterality Blood specimen STRUCTURE OF RIGHT 07/09/2017 12:40 3:58 (specimen) UPPER LIMB / AM EST AM EST Unknown Resulting Agency Comment Spec In Lab Yuan Webber MD MICROBIOLOGY - BLOOD ORDERAB LES Performing Organization Address City/[facility]/ZIP [place] [address] Blood culture (07/09/2017 12:30 AM EST) [facility] gist Method Time Signature Blood Culture No growth BARBARA DAVIS at 5 days. [facility] Specimen Anatomical Collection Method Collection Time Receive d Time (Source) Location / / Volume Laterality Blood specimen STRUCTURE OF LEFT 07/09/2017 12:30 1211/2016 3:59 (specimen) UPPER LIMB / AM EST AM EST Unknown Resulting Agency Comment Spec In Lab Yuan Webber MD MICROBIOLOGY - BLOOD ORDERAB LES Performing Organization Address City/[facility]/ZIP [place] [address] (ABNORMAL) Urinalysis Microscopic Exam (07/09/2017 12:05 AM EST) Analysis Performed At Patho logist Time Signature RBC UA 32 (H) 0 - 3 /HPF [facility] WBC UA 5 (H) 0 - 3 /HPF [facility] Squam Epith UA <1 <=4 /HPF [facility] Hyaline Cast 17 (H) 0 - 2 /LPF [facility] Gran Cast UA 1 (H) <=0 /LPF [facility] Uric Ac Bianca Rare (A) None /HPF [facility] Specimen (Source) Anatomical Collection Method Collection Time Re ceived Time Location / / Volume Laterality Urine specimen 07/09/2017 12: 7 obtained via AM EST 12:39 AM EST indwelling urinary catheter (specimen) Resulting Agency Comment Spec In Lab Yuan Webber MD URINE ORDERABLES Performing Organization Address City/[facility]/[place] [address] (ABNORMAL) Urinalysis with reflex Culture (07/09/2017 12:05 AM EST) [facility] Method Time Signature Glucose UA Negative Negative [facility] mg/dL [facility] Protein UA 30 (A) Negative [facility] mg/dL [facility] Bilirubin UA Negative Negative [facility] mg/dL [facility] Comment: Clinical correlation required [...] LABORATORY Blood UA Moderate (A) Negative mg/dL [facility] Ketones UA Negative Negative mg/dL [facility] Nitrite UA Negative Negative [facility] LABORATORY Leukocytes UA Negative Negative [facility] LABORATORY Appearance UA Hazy (A) Clear [facility] LABORATORY Spec [place] UA 1.025 1.002 - 1.030 [facility] Color UA Yellow Yellow [facility] Culture Reflexed No [facility] Specimen (Source) Anatomical Collection Method Collection Time Re ceived Time Location / / Volume Laterality Urine specimen 07/09/2017 12:05 7 obtained via AM EST 12:39 AM EST indwelling urinary catheter (specimen) Resulting Agency Comment Spec In Lab Yuan Webber MD URINE ORDERABLES Performing Organization Address City/[facility]/[place] [address] POCT Glucose (07/08/2017 11:01 PM EST) athologist Signature POC Glucose 191 65 - 199 [facility] Comment: Supplemental ranges: <140 mg/dL before meals <180 mg/dL all other times of the day Specimen Anatomical Collection Method Collection Time Receive d Time (Source) Location / / Volume Laterality Blood specimen 07/08/2017 11:01 7 (specimen) PM EST 11:01 PM EST Yuan Webber MD POINT OF CARE TEST ORDERABLE S Performing Organization Address City/State/ZIP Code Phon e Number [address] POCT Glucose (07/08/2017 10:04 PM EST) athologist Signature POC Glucose 198 65 - 199 [facility] Comment: Supplemental ranges: <140 mg/dL before meals <180 mg/dL all other times of the day Specimen Anatomical Collection Method Collection Time Receive d Time (Source) Location / / Volume Laterality Blood specimen 07/08/2017 10:04 7 (specimen) PM EST 10:04 PM EST Yuan Webber MD POINT OF CARE TEST ORDERABLE S Performing Organization Address City/State/ZIP [place] [address] Prepare Albumin 5% in 250 mL (07/08/2017 8:49 PM EST) athologist Signature Dispensed? Yes [facility] Specimen Anatomical Collection Method Collection Time Receive d Time (Source) Location / / Volume Laterality Blood specimen No Charge / 07/08/2017 8:49 PM 017 8:51 (specimen) Unknown EST PM EST Resulting Agency Comment Spec In Lab [facility] ORDERABLES Performing Organization Address City/State/ZIP Code Phon e Number [address] POCT Glucose (07/08/2017 8:28 PM EST) athologist Signature POC Glucose 195 65 - 199 [facility] mg/dL [facility] Comment: Supplemental ranges: <140 mg/dL before meals <180 mg/dL all other times of the day Specimen Anatomical Collection Method Collection Time Receive d Time (Source) Location / / Volume Laterality Blood specimen 07/08/2017 8:28 PM 017 8:28 (specimen) EST PM EST Yuan Webber MD POINT OF CARE TEST ORDERABLE S Performing Organization Address City/State/ZIP [place] [address] (ABNORMAL) POCT Glucose (07/08/2017 7:13 PM EST) athologist Signature POC Glucose 220 (H) 65 - 199 [facility]dL [facility] Comment: Supplemental ranges: <140 mg/dL before meals <180 mg/dL all other times of the day Specimen Anatomical Collection Method Collection Time Receive d Time (Source) Location / / Volume Laterality Blood specimen 07/08/2017 7:13 PM 017 7:13 (specimen) EST PM EST Yuan Webber MD POINT OF CARE TEST ORDERABLE S Performing Organization Address City/State/ZIP [place] [address] POCT Glucose (07/08/2017 5:04 PM EST) athologist Signature POC Glucose 147 65 - 199 [facility]dL [facility] Comment: Supplemental ranges: <140 mg/dL before meals <180 mg/dL all other times of the day Specimen Anatomical Collection Method Collection Time Receive d Time (Source) Location / / Volume Laterality Blood specimen 07/08/2017 5:04 PM 017 5:04 (specimen) EST PM EST Yuan Webber MD POINT OF CARE TEST ORDERABLE S Performing Organization Address City/State/ZIP [place] [address] (ABNORMAL) BLOOD GAS 2 ARTERIAL (07/08/2017 4:13 PM EST) Analysis Performed At Patho logist Time Signature pH Art 7.38 7.35 - [facility] 7.45 [facility] pCO2 Art 36 35 - 45 [facility] LABORATORY pO2 Art 91 85 - 104 [facility] LABORATORY HCO3 Art 20.9 20.0 - [facility] 26.0 [facility] mmol/[facility] LABORATORY BE Art -4.2 (L) -3.0 - 3.0 [facility] mmol/L [facility] Hgb Blood Gas 11.7 (L) 13.7 - [facility] 16.5 gm/dL [facility] O2HB Art 95.1 94.0 - [facility] 97.0 % [facility] COHB Art 0.6 % [facility] Comment: Nonsmokers: 0.5-1.5% COHB Smokers: Variable, but usually less than 10% Toxic: 20-30% COHB Lethal: Greater than 60% COHB METHB Art 0.6 <=1.5 % [facility] Na Whole Blood 139 135 - 145 mmol/L [facility] K Whole Blood 4.2 3.5 - 5.0 mmol/L [facility] Comment: Please note: Patients with WBC >100,000 may have falsely elevated Potassium levels. Contact the Clinical Chemistry L aboratory if there are any questions. ICa Whole Blood 1.05 (L) 1.15 - 1.33 mmol/L [facility] Comment: Note: ??Total bilirubin higher than 20 m g/dL may lead to falsely low ionized calcium. CL Whole Blood 110 (H) 98 - 107 mmol/L [facility] Gluc Whole Bld 155 65 - 199 mg/dL [facility] Comment: Diabetes: >=200 mg/dL plus symp toms. Lactate WB 1.4 0.5 - 2.2 mmol/L [facility] FIO2 Art 40 % [facility] PF Ratio Art 228 [facility] Specimen Anatomical Collection Method Collection Time Receive d Time (Source) Location / / Volume Laterality Blood specimen 07/08/2017 4:13 PM 017 4:13 (specimen) EST PM EST Yuan Webber MD CHEMISTRY ORDERABLES Performing Organization Address City/State/ZIP Code Phon e Number [address] POCT Glucose (07/08/2017 4:01 PM EST) athologist Signature POC Glucose 148 65 - 199 BARBARA ZHAORYAN mg/dL [facility] Comment: Supplemental ranges: <140 mg/dL before meals <180 mg/dL all other times of the day Specimen Anatomical Collection Method Collection Time Receive d Time (Source) Location / / Volume Laterality Blood specimen 07/08/2017 4:01 PM 017 4:01 (specimen) EST PM EST Yuan Webber MD POINT OF CARE TEST ORDERABLE S Performing Organization Address City/[facility]/ZIP [place] [address] POCT Glucose (07/08/2017 3:21 PM EST) athologist Signature POC Glucose 118 65 - 199 BARBARA RYAN mg/dL [facility] Comment: Supplemental ranges: <140 mg/dL before meals <180 mg/dL all other times of the day Specimen Anatomical Collection Method Collection Time Receive d Time (Source) Location / / Volume Laterality Blood specimen 07/08/2017 3:21 PM 017 3:21 (specimen) EST PM EST Yuan Webber MD POINT OF CARE TEST ORDERABLE S Performing Organization Address City/State/ZIP [place] [address] POCT Glucose (07/08/2017 2:01 PM EST) athologist Signature POC Glucose 129 65 - 199 BARBARA ZHAORYAN mg/dL [facility] Comment: Supplemental ranges: <140 mg/dL before meals <180 mg/dL all other times of the day Specimen Anatomical Collection Method Collection Time Receive d Time (Source) Location / / Volume Laterality Blood specimen 07/08/2017 2:01 PM 017 2:01 (specimen) EST PM EST Yuan Webber MD POINT OF CARE TEST ORDERABLE S Performing Organization Address City/State/ZIP Code Phon e Number [address] POCT Glucose (07/08/2017 11:53 AM EST) athologist Signature POC Glucose 156 65 - 199 [place]BAR[facility] RYAN mg/dL [facility] Comment: Supplemental ranges: <140 mg/dL before meals <180 mg/dL all other times of the day Specimen Anatomical Collection Method Collection Time Receive d Time (Source) Location / / Volume Laterality Blood specimen 07/08/2017 11:53 7 (specimen) AM EST 11:53 AM EST Yuan Webber MD POINT OF CARE TEST ORDERABLE S Performing Organization Address City/[facility]/ZIP Code Phon e Number [address] POCT Glucose (07/08/2017 11:04 AM EST) athologist Signature POC Glucose 181 65 - 199 BARBARA ZHAORYAN mg/dL [facility] Comment: Supplemental ranges: <140 mg/dL before meals <180 mg/dL all other times of the day Specimen Anatomical Collection Method Collection Time Receive d Time (Source) Location / / Volume Laterality Blood specimen 07/08/2017 11:04 7 (specimen) AM EST 11:04 AM EST Yuan Webber MD POINT OF CARE TEST ORDERABLE S Performing Organization Address City/[facility]/ZIP [place] [address] (ABNORMAL) POCT Glucose (07/08/2017 9:24 AM EST) athologist Signature POC Glucose 203 (H) 65 - 199 BARBARA RYAN mg/dL [facility] Comment: Supplemental ranges: <140 mg/dL before meals <180 mg/dL all other times of the day Specimen Anatomical Collection Method Collection Time Receive d Time (Source) Location / / Volume Laterality Blood specimen 07/08/2017 9:24 AM 017 9:24 (specimen) EST AM EST Yuan Webber MD POINT OF CARE TEST ORDERABLE S Performing Organization Address City/State/[facility] [place] [address] APTT (07/08/2017 8:40 AM EST) athologist Signature PTT 33 25 - 35 sec [facility] Comment: The recommended therapeutic range for fu ll dose, unfractionated heparin at [facility] is 80 ? 114 seconds. The use [...] Webber MD HEMATOLOGY ORDERABLES Performing Organization Address [facility] [place] [address] (ABNORMAL) Prothrombin Time (07/08/2017 [...] Webber MD HEMATOLOGY ORDERABLES Performing Organization Address [facility] [place] [address] (ABNORMAL) POCT Glucose (07/08/2017 7:38 AM EST) athologist Signature POC Glucose 232 (H) 65 - 199 [facility] mg/dL [facility] Comment: Supplemental ranges: <140 mg/dL before meals <180 mg/dL all other times of the day Specimen Anatomical Collection Method Collection Time Receive d Time (Source) Location / / Volume Laterality Blood specimen 07/08/2017 7:38 AM 017 7:38 (specimen) EST AM EST Yuan Webber MD POINT OF CARE TEST ORDERABLE S Performing Organization Address City/State/ZIP [place] [address] (ABNORMAL) POCT Glucose (07/08/2017 7:07 AM EST) athologist Signature POC Glucose 234 (H) 65 - 199 [facility] mg/dL [facility] Comment: Supplemental ranges: <140 mg/dL before meals <180 mg/dL all other times of the day Specimen Anatomical Collection Method Collection Time Receive d Time (Source) Location / / Volume Laterality Blood specimen 07/08/2017 7:07 AM 017 7:07 (specimen) EST AM EST Yuan Webber MD POINT OF CARE TEST ORDERABLE S Performing Organization Address City/State/ZIP [place] [address] (ABNORMAL) POCT Glucose (07/08/2017 6:04 AM EST) athologist Signature POC Glucose 225 (H) 65 - 199 [facility] mg/dL [facility] Comment: Supplemental ranges: <140 mg/dL before meals <180 mg/dL all other times of the day Specimen Anatomical Collection Method Collection Time Receive d Time (Source) Location / / Volume Laterality Blood specimen 07/08/2017 6:04 AM 017 6:04 (specimen) EST AM EST Yuan Webber MD POINT OF CARE TEST ORDERABLE S Performing Organization Address City/State/ZIP [place] [address] (ABNORMAL) POCT Glucose (07/08/2017 5:31 AM EST) athologist Signature POC Glucose 216 (H) 65 - 199 [facility] mg/dL [facility] Comment: Supplemental ranges: <140 mg/dL before meals <180 mg/dL all other times of the day Specimen Anatomical Collection Method Collection Time Receive d Time (Source) Location / / Volume Laterality Blood specimen 07/08/2017 5:31 AM 017 5:31 (specimen) EST AM EST Yuan Webber MD POINT OF CARE TEST ORDERABLE S Performing Organization Address City/State/ZIP [place] [address] (ABNORMAL) POCT Glucose (07/08/2017 4:52 AM EST) athologist Signature POC Glucose 257 (H) 65 - 199 [facility] Comment: Supplemental ranges: <140 mg/dL before meals <180 mg/dL all other times of the day Specimen Anatomical Collection Method Collection Time Receive d Time (Source) Location / / Volume Laterality Blood specimen 07/08/2017 4:52 AM 017 4:52 (specimen) EST AM EST Daphne Shahid MD POINT OF CARE TEST ORDERABLE S Performing Organization Address City/[facility]/ZIP [place] [address] (ABNORMAL) BLOOD GAS 2 ARTERIAL (07/08/2017 4:04 AM EST) Analysis Performed At Patho logist Time Signature pH Art 7.30 (L) 7.35 - [facility] 7.45 [facility] pCO2 Art 41 35 - 45 [facility] mmHg [facility] pO2 Art 83 (L) 85 - 104 [facility] mmHg [facility] HCO3 Art 19.6 (L) 20.0 - [facility] 26.0 [facility] mmol/L [facility] LABOR[facility] BE Art -6.8 (L) -3.0 - 3.0 [facility] mmol/L [facility] Hgb Blood Gas 12.2 (L) 13.7 - [facility] 16.5 gm/dL [facility] O2HB Art 93.5 (L) 94.0 - [facility] 97.0 % [facility] COHB Art 0.4 % [facility] Comment: Nonsmokers: 0.5-1.5% COHB Smokers: Variable, but usually less than 10% Toxic: 20-30% COHB Lethal: Greater than 60% COHB METHB Art 0.8 <=1.5 % [facility] Na Whole Blood 138 135 - 145 mmol/L [facility] K Whole Blood 4.4 3.5 - 5.0 mmol/L [facility] Comment: Please note: Patients with WBC >100,000 may have falsely elevated Potassium levels. Contact the Clinical Chemistry L aboratory if there are any questions. ICa Whole Blood 1.05 (L) 1.15 - 1.33 mmol/L [facility] Comment: Note: ??Total bilirubin higher than 20 m g/dL may lead to falsely low ionized calcium. CL Whole Blood 107 98 - 107 mmol/L [facility] Gluc Whole Bld 274 (H) 65 - 199 mg/dL [facility] Comment: Diabetes: >=200 mg/dL plus symp toms. Lactate WB 4.4 (Critical) 0.5 - 2.2 mmol/L [facility] Comment: Noted by brass wind instruments tube bender. FIO2 Art 40 % [facility] PF Ratio Art 208 [facility] Specimen Anatomical Collection Method Collection Time Receive d Time (Source) Location / / Volume Laterality Blood specimen 07/08/2017 4:04 AM 017 4:04 (specimen) EST AM EST Daphne Shahid MD CHEMISTRY ORDERABLES Performing Organization Address City/State/[place] [address] Scan, Peripheral Blood (07/08/2017 4:00 AM EST) P athologist Signature Plat Estimate Normal [facility] RBC Morphology Normal [facility] Specimen Anatomical Collection Method Collection Time Receive d Time (Source) Location / / Volume Laterality Blood specimen 07/08/2017 4:00 AM 017 4:09 (specimen) EST AM EST Resulting Agency Comment Spec In Lab Yuan Webber MD HEMATOLOGY ORDERABLES Performing Organization Address City/State/[place] [address] (ABNORMAL) Differential, Automated (07/08/2017 4:00 AM EST) [facility] Method Time Signature Neutrophils % 85.4 % [facility] Neutr Abs (ANC) 16.07 (H) 1.70 - [facility] 6.10 [facility] x10(3)/[facility] LABORATORY Lymphocytes % 3.5 % [facility] Lymphocytes Abs 0.6 (L) 0.9 - 3.2 [facility] x10(3)/[facility] LABORATORY Monocytes % 10.4 % [facility] Monocyte Abs 2.0 (H) 0.3 - 0.9 [facility] x10(3)/[facility] LABORATORY Eosinophils % 0.0 % [facility] Eosinophils Abs 0.0 0.0 - 0.4 [facility] x10(3)/[facility] LABORATORY Basophils % 0.1 % [facility] Basophils Abs 0.0 0.0 - 0.1 [facility] x10(3)/[facility] LABORATORY Immature Gran % 0.60 [...] Gran Abs 0.12 (H) 0.00 - 0.04 x10(3)/[facility] LABORATORY Specimen Anatomical Collection Method Collection Time Receive d Time (Source) Location / / Volume Laterality Blood specimen 07/08/2017 4:00 AM 017 4:09 (specimen) EST AM EST Resulting Agency Comment Spec In Lab Yuan Webber MD HEMATOLOGY ORDERABLES Performing Organization Address City/State/[place] [address] (ABNORMAL) Hemogram (07/08/2017 4:00 AM EST) Analysis Performed At Patho logist Time Signature WBC 18.8 (H) 4.0 - 9.5 [facility] x[facility](3[facility] LABORATORY RBC 4.00 (L) 4.58 - [facility] RYAN 5.54 [facility] x10(6)/[facility] LABORATORY Hemoglobin 11.9 (L) 13.7 - [facility] 16.5 gm/dL [facility] Hematocrit 35.9 (L) 40.5 - [facility] 48.5 % [facility] MCV 89.8 82.9 - [facility] 93.1 [facility] LABORATORY MCH 29.8 27.5 - [facility] 32.1 pg [facility] MCHC 33.1 32.0 - [facility] 35.7 gm/dL [facility] Platelets 232 145 - 357 [facility] x10(3)/[facility] LABORATORY RDWSD 47.6 (H) 36.0 - [place] 45.0 [facility] LABORATORY RDWCV 14.5 (H) 11.4 - [facility] 13.8 % [facility] MPV 9.5 7.6 - 12.9 [facility] LABORATORY nRBC % Auto 0.0 % [facility] nRBC Abs Auto 0.000 0.000 - [place] 0.000 [facility] x10(3)/[facility] LABORATORY Specimen Anatomical Collection Method Collection Time Receive d Time (Source) Location / / Volume Laterality Blood specimen 07/08/2017 4:00 AM 017 4:09 (specimen) EST AM EST Resulting Agency Comment Spec In Lab Yuan Webber MD HEMATOLOGY ORDERABLES Performing Organization Address City/State/[place] [address] (ABNORMAL) Electrolytes panel (07/08/2017 4:00 AM EST) P athologist Signature Sodium 139 135 - 145 [facility] mmol/L [facility] Potassium 4.7 3.5 - 5.0 [facility] mmol/L [facility] Comment: result rechecked-JLK Please [...] Organization Address City/State/[place] [address] (ABNORMAL) Cardiac Enzymes (LEB/CGP) (07/08/2017 4:00 AM EST) athologist [facility] Troponin-T 1.88 (H) 0.00 - [facility] 0.00 ng/mL [facility] Comment: The 99th percentile [...] additional sample may be indicated. Reference: [employer] [place] Definition of Myocardial Infarction. Journal of the [place] [employer] 2012;60:1581-98 CK, Total 413 (H) 0 - 200 unit/L [facility] Comment: result rechecked-JLK Specimen Anatomical Collection Method Collection Time Receive d Time (Source) Location / / Volume Laterality Blood specimen 07/08/2017 4:00 AM 017 4:09 (specimen) EST AM EST Resulting Agency Comment Spec In Lab Yuan Webber MD CHEMISTRY ORDERABLES Performing Organization Address City/State/[place] [address] (ABNORMAL) Glucose, fasting (07/08/2017 4:00 AM EST) P athologist Signature Glucose 287 (H) 65 - 99 [facility] Fasting mg/dL [facility] Comment: ?Fasting* Glucose Interpretive [...] Address City/[facility]/ZIP [place] [address] (ABNORMAL) Creatinine (07/08/2017 4:00 AM EST) Analysis Performed At Patho logist Time Signature Creatinine 1.55 (H) 0.80 [facility] mg/dL [facility] Estimated GFR 44 (L) >=60 [facility] Comment: The reported eGFR should be multiplied b y 1.2 for patients. The MDRD is not an appropriate measure o f renal function for patients with body mass extremes or in patients with acute kidney failure. http://PolyRemedy/DHnkdep http://PolyRemedy/DHMCnkf Specimen Anatomical Collection Method Collection Time Receive d Time (Source) Location / / Volume Laterality Blood specimen 07/08/2017 4:00 AM 017 4:09 (specimen) EST AM EST Resulting Agency Comment Spec In Lab Yuan Webber MD CHEMISTRY ORDERABLES Performing Organization Address City/[facility]/ZIP [place] [address] BUN (07/08/2017 4:00 AM EST) P athologist Signature BUN 16 10 - 20 [facility] Specimen Anatomical Collection Method Collection Time Receive d Time (Source) Location / / Volume Laterality Blood specimen 07/08/2017 4:00 AM 017 4:09 (specimen) EST AM EST Resulting Agency Comment Spec In Lab Yuan Webber MD CHEMISTRY ORDERABLES Performing Organization Address City/[facility]/ZIP [place] [address] (ABNORMAL) POCT Glucose (07/08/2017 3:00 AM EST) P athologist Signature POC Glucose 273 (H) 65 - 199 [facility] mg/dL [facility] Comment: Supplemental ranges: <140 mg/dL before meals <180 mg/dL all other times of the day Specimen Anatomical Collection Method Collection Time Receive d Time (Source) Location / / Volume Laterality Blood specimen 07/08/2017 3:00 AM 017 3:00 (specimen) EST AM EST Daphne Shahid MD POINT OF CARE TEST ORDERABLE S Performing Organization Address City/[facility]/ZIP [place] [address] (ABNORMAL) POCT Glucose (07/08/2017 1:57 AM EST) athologist Signature POC Glucose 288 (H) 65 - 199 [facility] mg/dL [facility] Comment: Supplemental ranges: <140 mg/dL before meals <180 mg/dL all other times of the day Specimen Anatomical Collection Method Collection Time Receive d Time (Source) Location / / Volume Laterality Blood specimen 07/08/2017 1:57 AM 017 1:57 (specimen) EST AM EST Daphne Shahid MD POINT OF CARE TEST ORDERABLE S Performing Organization Address City/[facility]/ZIP [place] [address] (ABNORMAL) POCT Glucose (07/08/2017 1:01 AM EST) athologist Signature POC Glucose 315 (H) 65 - 199 [facility] mg/dL [facility] Comment: Supplemental ranges: <140 mg/dL before meals <180 mg/dL all other times of the day Specimen Anatomical Collection Method Collection Time Receive d Time (Source) Location / / Volume Laterality Blood specimen 07/08/2017 1:01 AM 017 1:01 (specimen) EST AM EST Daphne Shahid MD POINT OF CARE TEST ORDERABLE S Performing Organization Address City/State/ZIP [place] [address] (ABNORMAL) BLOOD GAS 2 ARTERIAL (07/08/2017 12:09 AM EST) athologist Signature pH Art 7.26 7.35 - [facility] (Critical) 7.45 [facility] Comment: Noted by brass wind instruments tube bender. pCO2 Art 41 35 - 45 mmHg [facility] pO2 Art 96 85 - 104 mmHg [facility] HCO3 Art 17.7 (L) 20.0 - 26.0 mmol/L [facility] BE Art -9.4 (L) -3.0 - 3.0 mmol/L [facility] Hgb Blood Gas 12.4 (L) 13.7 - 16.5 gm/dL [facility] O2HB Art 94.7 94.0 - 97.0 % [facility] COHB Art 0.2 % [facility] Comment: Nonsmokers: 0.5-1.5% COHB Smokers: Variable, but usually less than 10% Toxic: 20-30% COHB Lethal: Greater than 60% COHB METHB Art 0.6 <=1.5 % [facility] Na Whole Blood 141 135 - 145 mmol/L [facility] K Whole Blood 3.5 3.5 - 5.0 mmol/L [facility] Comment: Please note: Patients with WBC >100,000 may have falsely elevated Potassium levels. Contact the Clinical Chemistry L aboratory if there are any questions. ICa Whole Blood 1.03 (L) 1.15 - 1.33 mmol/L [facility] Comment: Note: ??Total bilirubin higher than 20 m g/dL may lead to falsely low ionized calcium. CL Whole Blood 109 (H) 98 - 107 mmol/L [facility] Gluc Whole Bld 315 (H) 65 - 199 mg/dL [facility] Comment: Diabetes: >=200 mg/dL plus symp toms. Lactate WB 7.6 (Critical) 0.5 - 2.2 mmol/L [facility] Comment: Noted by brass wind instruments tube bender. FIO2 Art 40 % [facility] PF Ratio Art 240 [facility] Specimen Anatomical Collection Method Collection Time Receive d Time (Source) Location / / Volume Laterality Blood specimen Arterial Draw / 07/08/2017 12:09 2016 5:31 (specimen) Unknown AM EST AM EST Resulting Agency Comment Spec In Lab Samy Maldonado MD CHEMISTRY ORDERABLES Performing Organization Address City/State/ZIP [place] [address] (ABNORMAL) POCT Glucose (07/07/2017 10:56 PM EST) athologist Signature POC Glucose 292 (H) 65 - 199 [facility] mg/dL [facility] Comment: Supplemental ranges: <140 mg/dL before meals <180 mg/dL all other times of the day Specimen Anatomical Collection Method Collection Time Receive d Time (Source) Location / / Volume Laterality Blood specimen 07/07/2017 10:56 7 (specimen) PM EST 10:56 PM EST Daphne Shahid MD POINT OF CARE TEST ORDERABLE S Performing Organization Address City/[facility]/ZIP [place] [address] (ABNORMAL) BLOOD GAS 2 ARTERIAL (07/07/2017 10:04 PM EST) athologist Signature pH Art 7.22 7.35 - [facility] (Critical) 7.45 [facility] Comment: Noted by brass wind instruments tube bender. pCO2 Art 42 35 - 45 mmHg [facility] pO2 Art 94 85 - 104 mmHg [facility] HCO3 Art 16.9 (L) 20.0 - 26.0 mmol/L [facility] BE Art -10.7 (L) -3.0 - 3.0 mmol/L [facility] Hgb Blood Gas 13.0 (L) 13.7 - 16.5 gm/dL [facility] O2HB Art 93.8 (L) 94.0 - 97.0 % [facility] COHB Art 0.7 % [facility] Comment: Nonsmokers: 0.5-1.5% COHB Smokers: Variable, but usually less than 10% Toxic: 20-30% COHB Lethal: Greater than 60% COHB METHB Art 0.7 <=1.5 % [facility] Na Whole Blood 140 135 - 145 mmol/L [facility] K Whole Blood 3.3 (L) 3.5 - 5.0 mmol/L [facility] Comment: Please note: Patients with WBC >100,000 may have falsely elevated Potassium levels. Contact the Clinical Chemistry L aboratory if there are any questions. ICa Whole Blood 1.07 (L) 1.15 - 1.33 mmol/L [facility] Comment: Note: ??Total bilirubin higher than 20 m g/dL may lead to falsely low ionized calcium. CL Whole Blood 107 98 - 107 mmol/L [facility] Gluc Whole Bld 304 (H) 65 - 199 mg/dL [facility] Comment: Diabetes: >=200 mg/dL plus symp toms. Lactate WB 8.2 (Critical) 0.5 - 2.2 mmol/L [facility] Comment: Noted by brass wind instruments tube bender. FIO2 Art 40 % [facility] PF Ratio Art 235 [facility] Specimen Anatomical Collection Method Collection Time Receive d Time (Source) Location / / Volume Laterality Blood specimen 07/07/2017 10:04 7 (specimen) PM EST 10:04 PM EST Daphne Shahid MD CHEMISTRY ORDERABLES Performing Organization Address City/[facility]/ZIP Code Phon e Number [address] (ABNORMAL) Hemoglobin (07/07/2017 10:00 PM EST) athologist Signature Hemoglobin 12.8 (L) 13.7 - [facility] 16.5 gm/dL [facility] Specimen Anatomical Collection Method Collection Time Receive d Time (Source) Location / / Volume Laterality Blood specimen 07/07/2017 10:00 7 (specimen) PM EST 10:13 PM EST Resulting Agency Comment Spec In Lab Yuan Webber MD HEMATOLOGY ORDERABLES Performing Organization Address City/State/ZIP Code Phon e Number [address] (ABNORMAL) Potassium (07/07/2017 10:00 PM EST) P athologist Signature Potassium 3.4 (L) 3.5 - 5.0 [facility] mmol/L [facility] Comment: Please note: ??Patients [...] Address City/[facility]/ZIP Code Phon e Number [address] (ABNORMAL) POCT Glucose (07/07/2017 8:49 PM EST) athologist [facility] POC Glucose 241 (H) 65 - 199 [facility] mg/dL [facility] Comment: Supplemental ranges: <140 mg/dL before meals <180 mg/dL all other times of the day Specimen Anatomical Collection Method Collection Time Receive d Time (Source) Location / / Volume Laterality Blood specimen 07/07/2017 8:49 PM 017 8:49 (specimen) EST PM EST Daphne Shahid MD POINT OF CARE TEST ORDERABLE S Performing Organization Address City/[facility]/ZIP [place] [address] Prepare Albumin 5% in 250 mL (07/07/2017 8:03 PM EST) athologist [facility] Dispensed? Yes [facility] Specimen Anatomical Collection Method Collection Time Receive d Time (Source) Location / / Volume Laterality Blood specimen No Charge / 07/07/2017 8:03 PM 017 8:04 (specimen) Unknown EST PM EST Resulting Agency Comment Spec In Lab Michael BROWN BLOOD BANK ORDERABLES Performing Organization Address City/[facility]/ZIP [place] [address] EKG 12 Lead (07/07/2017 7:17 PM EST) Component Value Ref Range Test Analysis Performed Pathologis t Method Time At Signature Ventricular rate 75 BPM MUSE SYSTEM Atrial Rate 75 BPM MUSE SYSTEM P-R Interval 168 ms MUSE SYSTEM QRS Duration 104 ms MUSE SYSTEM Q-T Interval 462 ms MUSE SYSTEM QTC Calculated 515 ms MUSE SYSTEM (Bezet) Calculated P [place] 52 degrees MUSE SYSTEM Calculated R [place] -40 degrees MUSE SYSTEM Calculated T [place] 39 degrees MUSE SYSTEM INTERPRETATION Normal sinus [...] athologist Signature pH Art 7.21 7.35 - [facility] (Critical) 7.45 [facility] Comment: Noted by brass wind instruments tube bender. pCO2 Art 50 (H) 35 - 45 mmHg [facility] pO2 Art 238 (H) 85 - 104 mmHg [facility] HCO3 Art 19.8 (L) 20.0 - 26.0 mmol/L [facility] BE Art -8.1 (L) -3.0 - 3.0 mmol/L [facility] Hgb Blood Gas 12.8 (L) 13.7 - 16.5 gm/dL [facility] O2HB Art 97.5 (H) 94.0 - 97.0 % [facility] COHB Art 0.5 % [facility] Comment: Nonsmokers: 0.5-1.5% COHB Smokers: Variable, but usually less than 10% Toxic: 20-30% COHB Lethal: Greater than 60% COHB METHB Art 0.7 <=1.5 % [facility] Na Whole Blood 140 135 - 145 mmol/L [facility] K Whole Blood 3.0 (Critical) 3.5 - 5.0 mmol/L [facility] Comment: Noted by brass wind instruments tube bender. Please note: Patients with WBC >100,000 may have falsely elevated Potassium levels. Contact the Clinical Chemistry L aboratory if there are any questions. ICa Whole Blood 1.07 (L) 1.15 - 1.33 mmol/L [facility] Comment: Note: ??Total bilirubin higher than 20 m g/dL may lead to falsely low ionized calcium. CL Whole Blood 107 98 - 107 mmol/L [facility] Gluc Whole Bld 270 (H) 65 - 199 mg/dL [facility] Comment: Diabetes: >=200 mg/dL plus symp toms. Lactate WB 4.9 (Critical) 0.5 - 2.2 mmol/L [facility] Comment: Noted by brass wind instruments tube bender. FIO2 Art 100 % [facility] PF Ratio Art 238 [facility] Specimen Anatomical Collection Method Collection Time Receive d Time (Source) Location / / Volume Laterality Blood specimen 07/07/2017 6:57 PM 017 6:57 (specimen) EST PM EST Daphne Shahid MD CHEMISTRY ORDERABLES Performing Organization Address City/State/[place] [address] (ABNORMAL) BLOOD GAS 2 ARTERIAL (07/07/2017 5:31 PM EST) P athologist Signature pH Art 7.29 7.35 - [facility] (Critical) 7.45 [facility] Comment: Noted by brass wind instruments tube bender. pCO2 Art 48 (H) 35 - 45 mmHg [facility] pO2 Art 137 (H) 85 - 104 mmHg [facility] HCO3 Art 22.4 20.0 - 26.0 mmol/L [facility] BE Art -4.3 (L) -3.0 - 3.0 mmol/L [facility] Hgb Blood Gas 10.0 (L) 13.7 - 16.5 gm/dL [facility] O2HB Art 97.3 (H) 94.0 - 97.0 % [facility] COHB Art 0.3 % [facility] [...] Blood 1.14 (L) 1.15 - 1.33 mmol/L [facility] Comment: Note: ??Total bilirubin higher than 20 m g/dL may lead to falsely low ionized calcium. CL Whole Blood 105 98 - 107 mmol/L [facility] Gluc Whole Bld 293 [...] Organization Address City/State/[place] [address] Fibrinogen (07/07/2017 5:30 PM EST) P athologist Signature Fibrinogen 224 180 - 510 [facility] mg/dL [facility] Comment: Called by: JEET, [...] Perez MD HEMATOLOGY ORDERABLES Performing Organization Address [facility] Phon e Number [address] APTT (07/07/2017 5:30 PM EST) P athologist Signature PTT 30 25 - 35 sec [facility] Comment: The recommended therapeutic range for fu ll dose, unfractionated heparin at [facility] is 80 ? 114 seconds. The use [...] Perez MD HEMATOLOGY ORDERABLES Performing Organization Address [facility] [place] [address] (ABNORMAL) Prothrombin Time (07/07/2017 [...] Organization Address City/State/[place] [address] (ABNORMAL) Hemogram (07/07/2017 5:30 PM EST) P athologist Signature WBC 19.6 (H) 4.0 - 9.5 [facility] x10(3)/[facility] LABORATORY RBC 3.08 (L) 4.58 - [facility] 5.54 [facility] x10(6)/[facility] LABORATORY Hemoglobin 9.2 (L) 13.7 - [facility] 16.5 gm/dL [facility] Hematocrit 28.0 (L) 40.5 - [facility] 48.5 % [facility] Comment: This result has been called to MONICA MORAN by DONALD GROSSMAN on 07 07 2017 at 1759, and has been read back. MCV 90.9 82.9 - 93.1 [facility] LABORATORY MCH 29.9 27.5 - 32.1 pg [facility] MCHC 32.9 32.0 - 35.7 gm/dL [facility] Platelets 155 145 - 357 x10(3)/[facility] LABORATORY RDWSD 46.5 (H) 36.0 - 45.0 [facility] LABORATORY RDWCV 14.1 (H) 11.4 - 13.8 % [facility] LABORATORY MPV 9.5 7.6 - 12.9 [facility] LABORATORY nRBC % Auto 0.0 % [facility] LABORATORY nRBC Abs Auto 0.000 0.000 - 0.000 x10(3)/[facility] LABORATORY Specimen Anatomical Collection Method Collection Time Receive d Time (Source) Location / / Volume Laterality Blood specimen 07/07/2017 5:30 PM 017 5:34 (specimen) EST PM EST Resulting Agency Comment Spec In Lab Yifan Perez MD HEMATOLOGY ORDERABLES Performing Organization Address City/[facility]/ZIP Code Phon e Number [address] Prepare Platelets, Apheresis (07/07/2017 5:00 PM EST) P athologist Signature Dispensed? Yes [facility] Specimen Anatomical Collection Method Collection Time Receive d Time (Source) Location / / Volume Laterality Blood specimen 07/07/2017 5:00 PM 017 4:58 (specimen) EST PM EST Daphne Shahid MD BLOOD BANK ORDERABLES Performing Organization Address City/[facility]/ZIP Code Phon e Number [address] Platelet count (07/07/2017 4:55 PM EST) athologist Signature Platelets 177 145 - 357 [facility] x10(3)/[facility] LABORATORY Plat Immature 1.5 0.0 - 7.4 [facility] % % [facility] Comment: Limitation of the Immature Platelet Frac tion (IPF)-May be less reliable when the platelet count is less than 82l752/u L due to statistical imprecision. The IPF [...] in a decreased state of production. References: [employer] The Clinical Value of the Immature Platelet Fraction (IPF) in Cell Recovery Document Number 10-1143 12/2010 [employer] The Role of the Imm ature [...] City/State/ZIP Code Phon e Number [place] [id number] (ABNORMAL) Hemoglobin and Hematocrit, blood (07/07/2017 4:55 PM EST) P athologist Signature Hemoglobin 9.1 (L) 13.7 - 16.5 [facility] gm/dL [facility] Comment: This result has been called to MALKA MORAN by DONALD GROSSMAN on 07 07 2017 at 1734, and has been read back. Hematocrit 26.6 (L) 40.5 - 48.5 % [facility] Comment: This result has [...] Organization Address City/State/[place] [address] (ABNORMAL) BLOOD GAS 2 ARTERIAL (07/07/2017 4:38 PM EST) Analysis Performed At Patho logist Time Signature pH Art 7.37 7.35 - [facility] 7.45 [facility] pCO2 Art 44 35 - 45 [facility] mmHg [facility] pO2 Art 322 (H) 85 - 104 [facility] mmHg [facility] HCO3 Art 24.9 20.0 - [facility] 26.0 [facility] mmol/L [facility] LABORATORY BE Art -0.4 -3.0 - 3.0 [facility] mmol/L [facility] Hgb Blood Gas 10.1 (L) 13.7 - [facility] 16.5 gm/dL [facility] O2HB Art 98.7 (H) 94.0 - [facility] 97.0 % [facility] COHB Art 0.1 % [facility] Comment: Nonsmokers: 0.5-1.5% COHB Smokers: Variable, but usually less than 10% Toxic: 20-30% COHB Lethal: Greater than 60% COHB METHB Art 0.3 <=1.5 % [facility] Na Whole Blood 130 (L) 135 - 145 mmol/L [facility] K Whole Blood 5.7 (H) 3.5 - 5.0 mmol/L [facility] Comment: Please note: Patients with WBC >100,000 may have falsely elevated Potassium levels. Contact the Clinical Chemistry L aboratory if there are any questions. ICa Whole Blood 0.89 (Critical) 1.15 - 1.33 mmol/L [facility] Comment: Noted by brass wind instruments tube bender. Note: ??Total bilirubin higher than 20 m g/dL may lead to falsely low ionized calcium. CL Whole Blood 101 98 - 107 mmol/L [facility] Gluc Whole Bld 295 (H) 65 - 199 mg/dL [facility] Comment: Diabetes: >=200 mg/dL plus symp toms. Lactate WB 1.7 0.5 - 2.2 mmol/L [facility] Specimen Anatomical Collection Method Collection Time Receive d Time (Source) Location / / Volume Laterality Blood specimen 07/07/2017 4:38 PM 017 4:38 (specimen) EST PM EST Daphne Shahid MD CHEMISTRY ORDERABLES Performing Organization Address City/State/[place] [address] (ABNORMAL) BLOOD GAS 2 VENOUS (07/07/2017 4:06 PM EST) Analysis Performed At Patho logist Time Signature pH Cody 7.31 (L) 7.32 - [facility] 7.42 [facility] pCO2 Cody 47 41 - 51 [facility] LABORATORY pO2 Cody 53 (H) 25 - 40 [facility] LABORATORY HCO3 Cody 22.7 mmol/L [facility] BE Cody -3.7 mmol/L [facility] Hgb Blood Gas 10.2 (L) 13.7 - [facility] 16.5 gm/dL [facility] O2HB Cody 81.0 % [facility] COHB Cody 1.0 % [facility] Comment: Nonsmokers: 0.5-1.5% COHB Smokers: Variable, but usually less than 10% Toxic: 20-30% COHB Lethal: Greater than 60% COHB METHB Cody 0.3 <=1.5 % [facility] Na Whole Blood 132 (L) 135 - 145 mmol/L [facility] K Whole Blood 5.3 (H) 3.5 - 5.0 mmol/L [facility] Comment: Please note: Patients with WBC >100,000 may have falsely elevated Potassium levels. Contact the Clinical Chemistry L aboratory if there are any questions. ICa Whole Blood 0.90 (Critical) 1.15 - 1.33 mmol/L [facility] Comment: Noted by brass wind instruments tube bender. Note: ??Total bilirubin higher than 20 m g/dL may lead to falsely low ionized calcium. CL Whole Blood 100 98 - 107 mmol/L [facility] Gluc Whole Bld 231 (H) 65 - 199 mg/dL [facility] Comment: Diabetes: >=200 mg/dL plus symp toms Lactate WB 1.1 0.5 - 2.2 mmol/L [facility] BGas Source Venous [facility] LABOR[facility]ORY Specimen Anatomical Collection Method Collection Time Receive d Time (Source) Location / / Volume Laterality Blood specimen 07/07/2017 4:06 PM 017 4:06 (specimen) EST PM EST Daphne Shahid MD CHEMISTRY ORDERABLES Performing Organization Address City/State/[place] [address] (ABNORMAL) BLOOD GAS 2 ARTERIAL (07/07/2017 4:05 PM EST) Analysis Performed At Patho logist Time Signature pH Art 7.36 7.35 - [facility] 7.45 [facility] pCO2 Art 40 35 - 45 [facility] LABORATORY pO2 Art 282 (H) 85 - 104 [facility] LABORATORY HCO3 Art 22.1 20.0 - [facility] 26.0 [facility] mmol/L [facility] LABORATORY BE Art -3.4 (L) -3.0 - 3.0 [facility] mmol/L [facility] Hgb Blood Gas 10.2 (L) 13.7 - [facility] 16.5 gm/dL [facility] O2HB Art 98.4 (H) 94.0 - [facility] 97.0 % [facility] COHB Art 0.3 % [facility] Comment: Nonsmokers: 0.5-1.5% COHB Smokers: Variable, but usually less than 10% Toxic: 20-30% COHB Lethal: Greater than 60% COHB METHB Art 0.3 <=1.5 % [facility] Na Whole Blood 131 (L) 135 - 145 mmol/L [facility] K Whole Blood 5.4 (H) 3.5 - 5.0 mmol/L [facility] Comment: Please note: Patients with WBC >100,000 may have falsely elevated Potassium levels. Contact the Clinical Chemistry L aboratory if there are any questions. ICa Whole Blood 0.86 (Critical) 1.15 - 1.33 mmol/L [facility] Comment: Noted by brass wind instruments tube bender. Note: ??Total bilirubin higher than 20 m g/dL may lead to falsely low ionized calcium. CL Whole Blood 101 98 - 107 mmol/L [facility] Gluc Whole Bld 260 (H) 65 - 199 mg/dL [facility] Comment: Diabetes: >=200 mg/dL plus symp toms. Lactate WB 1.4 0.5 - 2.2 mmol/L [facility] Specimen Anatomical Collection Method Collection Time Receive d Time (Source) Location / / Volume Laterality Blood specimen 07/07/2017 4:05 PM 017 4:05 (specimen) EST PM EST Daphne Shahid MD CHEMISTRY ORDERABLES Performing Organization Address City/State/[place] [address] (ABNORMAL) BLOOD GAS 2 ARTERIAL (07/07/2017 2:29 PM EST) Analysis Performed At Patho logist Time Signature pH Art 7.43 7.35 - [facility] 7.45 [facility] pCO2 Art 36 35 - 45 [facility] mmHg [facility] pO2 Art 221 (H) 85 - 104 [facility]ORY HCO3 Art 23.2 20.0 - [facility] 26.0 [facility] mmol/L [facility] BE Art -1.2 -3.0 - 3.0 [facility] mmol/L [facility] Hgb Blood Gas 13.9 13.7 - [facility] 16.5 gm/dL [facility] O2HB Art 97.8 (H) 94.0 - [facility] 97.0 % [facility] COHB Art 1.1 % [facility] Comment: Nonsmokers: 0.5-1.5% COHB Smokers: Variable, but usually less than 10% Toxic: 20-30% COHB Lethal: Greater than 60% COHB METHB Art 0.3 <=1.5 % [facility] Na Whole Blood 139 135 - 145 mmol/L [facility] K Whole Blood 4.0 3.5 - 5.0 mmol/L [facility] Comment: Please note: Patients with WBC >100,000 may have falsely elevated Potassium levels. Contact the Clinical Chemistry L aboratory if there are any questions. ICa Whole Blood 1.11 (L) 1.15 - 1.33 mmol/L [facility] Comment: Note: ??Total bilirubin higher than 20 m g/dL may lead to falsely low ionized calcium. CL Whole Blood 104 98 - 107 mmol/L [facility] Gluc Whole Bld 184 65 - 199 mg/dL [facility] Comment: Diabetes: >=200 mg/dL plus symp toms. Lactate WB 1.5 0.5 - 2.2 mmol/L [facility] Specimen Anatomical Collection Method Collection Time Receive d Time (Source) Location / / Volume Laterality Blood specimen 07/07/2017 2:29 PM 017 2:29 (specimen) EST PM EST Daphne Shahid MD CHEMISTRY ORDERABLES Performing Organization Address City/[facility]/ZIP Code Phon e Number [address] Prepare Coag Factors (Non-Hemophilia) (07/07/2017 1:25 PM EST) P athologist Signature Dispensed? Yes [facility] Specimen Anatomical Collection Method Collection Time Receive d Time (Source) Location / / Volume Laterality Blood specimen 07/07/2017 1:25 PM 017 1:21 (specimen) EST PM EST Daphne Shahid MD BLOOD BANK ORDERABLES Performing Organization Address [facility]/ZIP Code Phon e Number [address] Prepare RBC (07/07/2017 1:10 PM EST) P athologist Signature Dispensed? Yes [facility] Specimen Anatomical Collection Method Collection Time Receive d Time (Source) Location / / Volume Laterality Blood specimen 07/07/2017 1:10 PM 017 1:05 (specimen) EST PM EST Daphne Shahid MD BLOOD BANK ORDERABLES Performing Organization Address City/[facility]/ZIP [place] [address] POCT Glucose (07/07/2017 11:56 AM EST) P athologist Signature POC Glucose 188 65 - 199 [facility] mg/dL [facility] Comment: Supplemental ranges: <140 mg/dL before meals <180 mg/dL all other times of the day Specimen Anatomical Collection Method Collection Time Receive d Time (Source) Location / / Volume Laterality Blood specimen 07/07/2017 11:56 7 (specimen) AM EST 11:56 AM EST Daphne Shahid MD POINT OF CARE TEST ORDERABLE S Performing Organization Address City/[facility]/ZIP Code Phon e Number [address] POCT Glucose (07/07/2017 11:05 AM EST) athologist Signature POC Glucose 168 65 - 199 [facility] mg/dL [facility] Comment: Supplemental ranges: <140 mg/dL before meals <180 mg/dL all other times of the day Specimen Anatomical Collection Method Collection Time Receive d Time (Source) Location / / Volume Laterality Blood specimen 07/07/2017 11:05 7 (specimen) AM EST 11:05 AM EST Daphne Shahid MD POINT OF CARE TEST ORDERABLE S Performing Organization Address City/State/ZIP Code Phon e Number [address] POCT Glucose (07/07/2017 10:02 AM EST) athologist Signature POC Glucose 191 65 - 199 [facility] Comment: Supplemental ranges: <140 mg/dL before meals <180 mg/dL all other times of the day Specimen Anatomical Collection Method Collection Time Receive d Time (Source) Location / / Volume Laterality Blood specimen 07/07/2017 10:02 7 (specimen) AM EST 10:02 AM EST Daphne Shahid MD POINT OF CARE TEST ORDERABLE S Performing Organization Address City/State/ZIP Code Phon e Number [address] POCT Glucose (07/07/2017 7:53 AM EST) athologist Signature POC Glucose 178 65 - 199 [facility] mg/dL [facility] Comment: Supplemental ranges: <140 mg/dL before meals <180 mg/dL all other times of the day Specimen Anatomical Collection Method Collection Time Receive d Time (Source) Location / / Volume Laterality Blood specimen 07/07/2017 7:53 AM 017 7:53 (specimen) EST AM EST Daphne Shahid MD POINT OF CARE TEST ORDERABLE S Performing Organization Address City/State/ZIP [place] [address] POCT Glucose (07/07/2017 7:03 AM EST) athologist Signature POC Glucose 188 65 - 199 [facility]/dL [facility] Comment: Supplemental ranges: <140 mg/dL before meals <180 mg/dL all other times of the day Specimen Anatomical Collection Method Collection Time Receive d Time (Source) Location / / Volume Laterality Blood specimen 07/07/2017 7:03 AM 017 7:03 (specimen) EST AM EST Daphne Shahid MD POINT OF CARE TEST ORDERABLE S Performing Organization Address City/State/ZIP Code Phon e Number [address] (ABNORMAL) POCT Glucose (07/07/2017 6:17 AM EST) athologist Signature POC Glucose 207 (H) 65 - 199 [facility]dL [facility] Comment: Supplemental ranges: <140 mg/dL before meals <180 mg/dL all other times of the day Specimen Anatomical Collection Method Collection Time Receive d Time (Source) Location / / Volume Laterality Blood specimen 07/07/2017 6:17 AM 017 6:17 (specimen) EST AM EST Daphne Shahid MD POINT OF CARE TEST ORDERABLE S Performing Organization Address City/[facility]/ZIP Code Phon e Number [address] Differential, Automated (07/07/2017 5:15 AM EST) athologist [facility] Neutrophils % 69.7 % [facility] Neutr Abs (ANC) 5.32 1.70 - [facility] 6.10 [facility] x10(3)/[facility] LABORATORY Lymphocytes % 16.3 % [facility] Lymphocytes Abs 1.2 0.9 - 3.2 [facility] x10(3)/[facility] LABORATORY Monocytes % 10.5 % [facility] Monocyte Abs 0.8 0.3 - 0.9 [facility] x10(3)/[facility] LABORATORY Eosinophils % 2.5 % [facility] Eosinophils Abs 0.2 0.0 - 0.4 [facility] x10(3)/[facility] LABORATORY Basophils % 0.7 % [facility] Basophils Abs 0.0 0.0 - 0.1 [facility] x10(3)/[facility] LABORATORY Immature Gran % 0.30 [...] 0.02 0.00 - 0.04 x10(3)/[facility] Specimen Anatomical Collection Method Collection Time Receive d Time (Source) Location / / Volume Laterality Blood specimen 07/07/2017 5:15 AM 017 5:34 (specimen) EST AM EST Resulting Agency Comment Spec In Lab Daphne Shahid MD HEMATOLOGY ORDERABLES Performing Organization Address City/State/[place] [address] (ABNORMAL) Hemogram (07/07/2017 5:15 AM EST) Analysis Performed At Patho logist Time Signature WBC 7.6 4.0 - 9.5 [facility] x10(3)/[facility] LABORATORY RBC 4.82 4.58 [facility] x10(6)/[facility] LABORATORY Hemoglobin 14.4 13.7 - [facility] 16.5 gm/dL [facility] Hematocrit 42.1 40.5 - [facility] 48.5 % [facility] MCV 87.3 82.9 - [facility] 93.1 [facility] LABORATORY MCH 29.9 27.5 - [facility] 32.1 pg [facility] MCHC 34.2 32.0 - [facility] 35.7 gm/dL [facility] Platelets 188 145 - 357 [facility] x10(3)/[facility] LABORATORY RDWSD 45.1 (H) 36.0 - [facility] 45.0 [facility] LABORATORY RDWCV 14.3 (H) 11.4 - [facility] 13.8 % [facility] MPV 9.4 7.6 - 12.9 [facility] LABORATORY nRBC % Auto 0.0 % [facility] nRBC Abs Auto 0.000 0.000 - [facility] 0.000 [facility] x10(3)/[facility] LABORATORY Specimen Anatomical Collection Method Collection Time Receive d Time (Source) Location / / Volume Laterality Blood specimen 07/07/2017 5:15 AM 017 5:34 (specimen) EST AM EST Resulting Agency Comment Spec In Lab Daphne Shahid MD HEMATOLOGY ORDERABLES Performing Organization Address City/State/ZIP Code Phon e Number [address] (ABNORMAL) APTT (07/07/2017 5:15 AM EST) P athologist Signature PTT 69 (H) 25 - 35 sec [facility] Comment: The recommended therapeutic range for fu ll dose, unfractionated heparin at [facility] is 80 ? 114 seconds. The use [...] Address City/State/ZIP Code Phon e Number [address] Magnesium (07/07/2017 5:15 AM EST) P athologist Signature Magnesium 0.94 0.69 - 1.07 [facility] mmol/L [facility] Specimen Anatomical Collection Method Collection Time Receive d Time (Source) Location / / Volume Laterality Blood specimen 07/07/2017 5:15 AM 017 5:34 (specimen) EST AM EST Resulting Agency Comment Spec In Lab Daphne Shahid MD CHEMISTRY ORDERABLES Performing Organization Address City/[facility]/[place] [address] (ABNORMAL) Basic Metabolic Panel (non-fasting) (07/07/2017 5:15 AM EST) P athologist Signature Glucose Lvl 203 (H) 65 - 199 [facility] mg/dL [facility] Comment: Diabetes: [...] or in patients with acute kidney failure. [email or web address] [email or web address]/DHMCnkf Specimen Anatomical Collection Method Collection Time Receive d Time (Source) Location / / Volume Laterality Blood specimen 07/07/2017 5:15 AM 017 5:34 (specimen) EST AM EST Resulting Agency Comment Spec In Lab Daphne Shahid MD CHEMISTRY ORDERABLES Performing Organization Address City/[facility]/[place] [address] (ABNORMAL) Cardiac Enzymes (LEB/CGP) (07/07/2017 5:15 AM EST) athologist Signature Troponin-T 2.07 (H) 0.00 - [facility] 0.00 ng/mL [facility] Comment: The 99th percentile [...] additional sample may be indicated. Reference: [place] Definition of Myocardial Infarction. Journal of the [place] [employer] 2012;60:1581-98 CK, Total 88 0 - 200 unit/L [facility] Specimen Anatomical Collection Method Collection Time Receive d Time (Source) Location / / Volume Laterality Blood specimen 07/07/2017 5:15 AM 017 5:34 (specimen) EST AM EST Resulting Agency Comment Spec In Lab Daphne Shahid MD CHEMISTRY ORDERABLES Performing Organization Address City/State/ZIP Code Phon e Number [address] POCT Glucose (07/07/2017 5:01 AM EST) athologist Signature POC Glucose 182 65 - 199 [facility] Comment: Supplemental ranges: <140 mg/dL before meals <180 mg/dL all other times of the day Specimen Anatomical Collection Method Collection Time Receive d Time (Source) Location / / Volume Laterality Blood specimen 07/07/2017 5:01 AM 017 5:01 (specimen) EST AM EST Daphne Shahid MD POINT OF CARE TEST ORDERABLE S Performing Organization Address City/State/ZIP [place] [address] POCT Glucose (07/07/2017 4:08 AM EST) athologist Signature POC Glucose 199 65 - 199 [facility] mg/dL [facility] Comment: Supplemental ranges: <140 mg/dL before meals <180 mg/dL all other times of the day Specimen Anatomical Collection Method Collection Time Receive d Time (Source) Location / / Volume Laterality Blood specimen 07/07/2017 4:08 AM 017 4:08 (specimen) EST AM EST Daphne Shahid MD POINT OF CARE TEST ORDERABLE S Performing Organization Address City/State/ZIP Code Phon e Number [address] POCT Glucose (07/07/2017 3:03 AM EST) athologist Signature POC Glucose 188 65 - 199 [facility]/dL [facility] Comment: Supplemental ranges: <140 mg/dL before meals <180 mg/dL all other times of the day Specimen Anatomical Collection Method Collection Time Receive d Time (Source) Location / / Volume Laterality Blood specimen 07/07/2017 3:03 AM 017 3:03 (specimen) EST AM EST Daphne Shahid MD POINT OF CARE TEST ORDERABLE S Performing Organization Address City/State/ZIP [place] [address] (ABNORMAL) POCT Glucose (07/07/2017 2:08 AM EST) P athologist Signature POC Glucose 200 (H) 65 - 199 [facility] mg/dL [facility] Comment: Supplemental ranges: <140 mg/dL before meals <180 mg/dL all other times of the day Specimen Anatomical Collection Method Collection Time Receive d Time (Source) Location / / Volume Laterality Blood specimen 07/07/2017 2:08 AM 017 2:08 (specimen) EST AM EST Daphne Shahid MD POINT OF CARE TEST ORDERABLE S Performing Organization Address City/State/ZIP [place] [address] (ABNORMAL) POCT Glucose (07/07/2017 1:31 AM EST) P athologist Signature POC Glucose 209 (H) 65 - 199 [facility] mg/dL [facility] Comment: Supplemental ranges: <140 mg/dL before meals <180 mg/dL all other times of the day Specimen Anatomical Collection Method Collection Time Receive d Time (Source) Location / / Volume Laterality Blood specimen 07/07/2017 1:31 AM 017 1:31 (specimen) EST AM EST Daphne Shahid MD POINT OF CARE TEST ORDERABLE S Performing Organization Address City/State/ZIP [place] [address] XR Chest PA or [...] Signature POC Glucose 161 65 - 199 [facility] mg/dL [facility] Comment: Supplemental ranges: <140 mg/dL before meals <180 mg/dL all other times of the day Specimen Anatomical Collection Method Collection Time Receive d Time (Source) Location / / Volume Laterality Blood specimen 07/07/2017 12:07 7 (specimen) AM EST 12:07 AM EST Daphne Shahid MD POINT OF CARE TEST ORDERABLE S Performing Organization Address City/[facility]/ZIP [place] [address] (ABNORMAL) APTT (07/07/2017 12:00 AM EST) athologist Signature PTT 103 (H) 25 - 35 sec [facility] Comment: The recommended therapeutic range for fu ll dose, unfractionated heparin at [facility] is 80 ? 114 seconds. The use [...] Address City/State/ZIP Code Phon e Number [address] POCT Glucose (07/06/2017 9:55 PM EST) athologist Signature POC Glucose 109 65 - 199 [facility] mg/dL [facility] Comment: Supplemental ranges: <140 mg/dL before meals <180 mg/dL all other times of the day Specimen Anatomical Collection Method Collection Time Receive d Time (Source) Location / / Volume Laterality Blood specimen 07/06/2017 9:55 PM 017 9:55 (specimen) EST PM EST Daphne Shahid MD POINT OF CARE TEST ORDERABLE S Performing Organization Address City/[facility]/ZIP [place] [address] POCT Glucose (07/06/2017 9:04 PM EST) athologist Signature POC Glucose 120 65 - 199 [facility] mg/dL [facility] Comment: Supplemental ranges: <140 mg/dL before meals <180 mg/dL all other times of the day Specimen Anatomical Collection Method Collection Time Receive d Time (Source) Location / / Volume Laterality Blood specimen 07/06/2017 9:04 PM 017 9:04 (specimen) EST PM EST Daphne Shahid MD POINT OF CARE TEST ORDERABLE S Performing Organization Address City/State/ZIP [place] [address] POCT Glucose (07/06/2017 7:45 PM EST) athologist Signature POC Glucose 158 65 - 199 [facility] mg/dL [facility] Comment: Supplemental ranges: <140 mg/dL before meals <180 mg/dL all other times of the day Specimen Anatomical Collection Method Collection Time Receive d Time (Source) Location / / Volume Laterality Blood specimen 07/06/2017 7:45 PM 017 7:45 (specimen) EST PM EST Daphne Shahid MD POINT OF CARE TEST ORDERABLE S Performing Organization Address City/State/ZIP Code Phon e Number [address] Potassium (07/06/2017 7:40 PM EST) athologist Signature Potassium 3.9 3.5 - 5.0 [facility] mmol/L [facility] Comment: Please note: ??Patients [...] Organization Address City/State/[place] [address] (ABNORMAL) Cardiac Enzymes (LEB/CGP) (07/06/2017 7:40 PM EST) athologist Signature Troponin-T 2.27 (H) 0.00 - [facility] 0.00 ng/mL [facility] Comment: The 99th percentile [...] additional sample may be indicated. Reference: [place] Definition of Myocardial Infarction. Journal of the [place] [employer] 2012;60:1581-98 CK, Total 93 0 - 200 unit/L [facility] Specimen Anatomical Collection Method Collection Time Receive d Time (Source) Location / / Volume Laterality Blood specimen 07/06/2017 7:40 PM 017 7:52 (specimen) EST PM EST Resulting Agency Comment Spec In Lab Daphne Shahid MD CHEMISTRY ORDERABLES Performing Organization Address City/[facility]/ZIP [place] [address] (ABNORMAL) POCT Glucose (07/06/2017 7:13 PM EST) P athologist Signature POC Glucose 200 (H) 65 - 199 [facility] mg/dL [facility] Comment: Supplemental ranges: <140 mg/dL before meals <180 mg/dL all other times of the day Specimen Anatomical Collection Method Collection Time Receive d Time (Source) Location / / Volume Laterality Blood specimen 07/06/2017 7:13 PM 017 7:13 (specimen) EST PM EST Daphne Shahid MD POINT OF CARE TEST ORDERABLE S Performing Organization Address [facility] [place] [address] (ABNORMAL) APTT (07/06/2017 6:15 PM EST) athologist Signature PTT 94 (H) 25 - 35 sec [facility] Comment: The recommended therapeutic range for fu ll dose, unfractionated heparin at [facility] is 80 ? 114 seconds. The use [...] HEMATOLOGY ORDERABLES Performing Organization Address City/[facility]/ZIP [facility] [place] [address] (ABNORMAL) POCT Glucose (07/06/2017 6:03 PM EST) P athologist Signature POC Glucose 236 (H) 65 - 199 [facility] mg/dL [facility] Comment: Supplemental ranges: <140 mg/dL before meals <180 mg/dL all other times of the day Specimen Anatomical Collection Method Collection Time Receive d Time (Source) Location / / Volume Laterality Blood specimen 07/06/2017 6:03 PM 017 6:03 (specimen) EST PM EST Daphne Shahid MD POINT OF CARE TEST ORDERABLE S Performing Organization Address City/State/ZIP [place] [address] (ABNORMAL) POCT Glucose (07/06/2017 5:01 PM EST) P athologist Signature POC Glucose 235 (H) 65 - 199 [facility] mg/dL [facility] Comment: Supplemental ranges: <140 mg/dL before meals <180 mg/dL all other times of the day Specimen Anatomical Collection Method Collection Time Receive d Time (Source) Location / / Volume Laterality Blood specimen 07/06/2017 5:01 PM 017 5:01 (specimen) EST PM EST Daphne Shahid MD POINT OF CARE TEST ORDERABLE S Performing Organization Address City/State/ZIP [place] [address] (ABNORMAL) POCT Glucose (07/06/2017 4:06 PM EST) P athologist Signature POC Glucose 202 (H) 65 - 199 [facility] mg/dL [facility] Comment: Supplemental ranges: <140 mg/dL before meals <180 mg/dL all other times of the day Specimen Anatomical Collection Method Collection Time Receive d Time (Source) Location / / Volume Laterality Blood specimen 07/06/2017 4:06 PM 017 4:06 (specimen) EST PM EST Daphne Shahid MD POINT OF CARE TEST ORDERABLE S Performing Organization Address City/State/ZIP [place] [address] POCT Glucose (07/06/2017 2:59 PM EST) P athologist Signature POC Glucose 178 65 - 199 [facility] mg/dL [facility] Comment: Supplemental ranges: <140 mg/dL before meals <180 mg/dL all other times of the day Specimen Anatomical Collection Method Collection Time Receive d Time (Source) Location / / Volume Laterality Blood specimen 07/06/2017 2:59 PM 017 2:59 (specimen) EST PM EST Daphne Shahid MD POINT OF CARE TEST ORDERABLE S Performing Organization Address City/State/[place] [address] (ABNORMAL) Cardiac Enzymes (LEB/CGP) (07/06/2017 2:10 PM EST) athologist Signature Troponin-T 2.34 (H) 0.00 - [facility] 0.00 ng/mL [facility] Comment: The 99th percentile [...] additional sample may be indicated. Reference: [place] Definition of Myocardial Infarction. Journal of the [place] [employer] 2012;60:1581-98 CK, Total 101 0 - 200 unit/L [facility] Specimen Anatomical Collection Method Collection Time Receive d Time (Source) Location / / Volume Laterality Blood specimen 07/06/2017 2:10 PM 017 2:26 (specimen) EST PM EST Resulting Agency Comment Spec In Lab Daphne Shahid MD CHEMISTRY ORDERABLES Performing Organization Address City/State/ZIP Code Phon e Number [address] POCT Glucose (07/06/2017 2:08 PM EST) athologist Signature POC Glucose 192 65 - 199 [facility] mg/dL [facility] Comment: Supplemental ranges: <140 mg/dL before meals <180 mg/dL all other times of the day Specimen Anatomical Collection Method Collection Time Receive d Time (Source) Location / / Volume Laterality Blood specimen 07/06/2017 2:08 PM 017 2:08 (specimen) EST PM EST Daphne Shahid MD POINT OF CARE TEST ORDERABLE S Performing Organization Address City/[facility]/ZIP Code Phon e Number [address] POCT Glucose (07/06/2017 1:04 PM EST) athologist Signature POC Glucose 162 65 - 199 BARBARA RYAN mg/dL [facility] Comment: Supplemental ranges: <140 mg/dL before meals <180 mg/dL all other times of the day Specimen Anatomical Collection Method Collection Time Receive d Time (Source) Location / / Volume Laterality Blood specimen 07/06/2017 1:04 PM 017 1:04 (specimen) EST PM EST Daphne Shahid MD POINT OF CARE TEST ORDERABLE S Performing Organization Address City/[facility]/ZIP [place] [address] POCT Glucose (07/06/2017 12:05 PM EST) athologist Signature POC Glucose 196 65 - 199 [place] RYAN mg/dL [facility] Comment: Supplemental ranges: <140 mg/dL before meals <180 mg/dL all other times of the day Specimen Anatomical Collection Method Collection Time Receive d Time (Source) Location / / Volume Laterality Blood specimen 07/06/2017 12:05 7 (specimen) PM EST 12:05 PM EST Daphne Shahid MD POINT OF CARE TEST ORDERABLE S Performing Organization Address City/State/[place] [address] EKG 12 Lead (07/06/2017 12:00 PM EST) Component Value Ref Range Test Analysis Performed Pathologis t Method Time At Signature Ventricular rate 91 BPM MUSE SYSTEM Atrial Rate 91 BPM MUSE SYSTEM P-R Interval 140 ms MUSE SYSTEM QRS Duration 94 ms MUSE SYSTEM Q-T Interval 394 ms MUSE SYSTEM QTC Calculated 484 ms MUSE SYSTEM (Bezet) Calculated P [place] 36 degrees MUSE SYSTEM Calculated R [place] -19 degrees MUSE SYSTEM Calculated T [place] 104 degrees MUSE SYSTEM INTERPRETATION Normal sinus rhythm MUSE SYSTEM 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) ST & T wave abnormality, consider lateral ischemia Abnormal ECG When compared with ECG of 05-JUL-2017 20:39, No significant change was found Confirmed by MD Luci, Taurus Braun ([id number]) on 07/06/2017 5:07:33 PM Specimen Anatomical Collection Method Collection Time Receive d Time (Source) Location / / Volume Laterality 07/06/2017 12:00 07/06/2017 5:07 PM EST PM EST Daphne Shahid MD ECG ORDERABLES Performing Organization Address City/State/ZIP Code Phon e Number MUSE SYSTEM ABORH Recheck Status (07/06/2017 12:00 PM EST) [facility] Method Time Signature ABORH Type Completed [facility] LABORATORY Specimen Anatomical Collection Method Collection Time Receive d Time (Source) Location / / Volume Laterality Blood specimen 07/06/2017 12:00 7 (specimen) PM EST 12:24 PM EST Resulting Agency Comment Spec In Lab Daphne Shahid MD BLOOD BANK ORDERABLES Performing Organization Address City/State/[place] [address] Antibody screen (07/06/2017 12:00 PM EST) [facility] Method Time Signature Ab Screen Negative [facility] LABORATORY Expires at 07/09/2017 BARBARA ZHAORYAN [id number] on: [facility] Specimen Anatomical Collection Method Collection Time Receive d Time (Source) Location / / Volume Laterality Blood specimen 07/06/2017 12:00 7 (specimen) PM EST 12:24 PM EST Resulting Agency Comment Spec In Lab Daphne Shahid MD BLOOD BANK ORDERABLES Performing Organization Address City/[facility]/ZIP Code Phon e Number [address] ABO/Rh Typing (07/06/2017 12:00 PM EST) P athologist Signature ABORh Type O Pos [facility] Specimen Anatomical Collection Method Collection Time Receive d Time (Source) Location / / Volume Laterality Blood specimen 07/06/2017 12:00 7 (specimen) PM EST 12:24 PM EST Resulting Agency Comment Spec In Lab Daphne Shahid MD BLOOD BANK ORDERABLES Performing Organization Address [facility] [place] [address] Prothrombin Time (07/06/2017 11:24 AM EST) P athologist Signature PT 13.3 11.8 - 14.0 [facility] LABORATORY INR 1.0 0.9 - 1.1 [facility] [...] Address City/[facility]/ZIP [place] [address] (ABNORMAL) APTT (07/06/2017 11:24 AM EST) P athologist Signature PTT 52 (H) 25 - 35 sec [facility] Comment: The recommended therapeutic range for fu ll dose, unfractionated heparin at [facility] is 80 ? 114 seconds. The use [...] Address City/State/ZIP Code Phon e Number [address] POCT Glucose (07/06/2017 11:02 AM EST) athologist Signature POC Glucose 187 65 - 199 [facility] Comment: Supplemental ranges: <140 mg/dL before meals <180 mg/dL all other times of the day Specimen Anatomical Collection Method Collection Time Receive d Time (Source) Location / / Volume Laterality Blood specimen 07/06/2017 11:02 7 (specimen) AM EST 11:02 AM EST Daphne Shahid MD POINT OF CARE TEST ORDERABLE S Performing Organization Address City/[facility]/ZIP Code Phon e Number [address] POCT Glucose (07/06/2017 10:18 AM EST) P athologist Signature POC Glucose 193 65 - 199 [facility] Comment: Supplemental ranges: <140 mg/dL before meals <180 mg/dL all other times of the day Specimen Anatomical Collection Method Collection Time Receive d Time (Source) Location / / Volume Laterality Blood specimen 07/06/2017 10:18 7 (specimen) AM EST 10:18 AM EST Daphne Shahid MD POINT OF CARE TEST ORDERABLE S Performing Organization Address City/[facility]/ZIP Code Phon e Number [address] POCT Glucose (07/06/2017 9:25 AM EST) P athologist Signature POC Glucose 182 65 - 199 [facility] Comment: Supplemental ranges: <140 mg/dL before meals <180 mg/dL all other times of the day Specimen Anatomical Collection Method Collection Time Receive d Time (Source) Location / / Volume Laterality Blood specimen 07/06/2017 9:25 AM 017 9:25 (specimen) EST AM EST Daphne Shahid MD POINT OF CARE TEST ORDERABLE S Performing Organization Address City/State/[place] [address] (ABNORMAL) Cardiac Enzymes (LEB/CGP) (07/06/2017 8:10 AM EST) athologist Signature Troponin-T 2.26 (H) 0.00 - BARBARA DAVIS 0.00 ng/mL [facility] Comment: The 99th percentile [...] additional sample may be indicated. Reference: [place] Definition of Myocardial Infarction. Journal of the [place] [employer] 2012;60:1581-98 CK, Total 124 0 - 200 unit/L [facility] Specimen Anatomical Collection Method Collection Time Receive d Time (Source) Location / / Volume Laterality Blood specimen 07/06/2017 8:10 AM 017 8:23 (specimen) EST AM EST Resulting Agency Comment Spec In Lab Daphne Shahid MD CHEMISTRY ORDERABLES Performing Organization Address City/State/ZIP Code Phon e Number [address] Magnesium (07/06/2017 8:10 AM EST) athologist Signature Magnesium 0.84 0.69 - 1.07 [facility] mmol/L [facility] Specimen Anatomical Collection Method Collection Time Receive d Time (Source) Location / / Volume Laterality Blood specimen 07/06/2017 8:10 AM 017 8:21 (specimen) EST AM EST Resulting Agency Comment Spec In Lab Daphne Shahid MD CHEMISTRY ORDERABLES Performing Organization Address City/[facility] Phon e Number [address] (ABNORMAL) Basic Metabolic Panel (non-fasting) (07/06/2017 8:10 AM EST) athologist Signature Glucose Lvl 199 65 - 199 [facility] mg/dL [facility] Comment: Diabetes: [...] or in patients with acute kidney failure. http://PolyRemedy/DHnkdep [email or web address]/DHMCnkf Specimen Anatomical Collection Method Collection Time Receive d Time (Source) Location / / Volume Laterality Blood specimen 07/06/2017 8:10 AM 017 8:21 (specimen) EST AM EST Resulting Agency Comment Spec In Lab Daphne Shahid MD CHEMISTRY ORDERABLES Performing Organization Address City/[facility]/ZIP Code Phon e Number [address] POCT Glucose (07/06/2017 7:34 AM EST) P athologist Signature POC Glucose 198 65 - 199 [facility] Comment: Supplemental ranges: <140 mg/dL before meals <180 mg/dL all other times of the day Specimen Anatomical Collection Method Collection Time Receive d Time (Source) Location / / Volume Laterality Blood specimen 07/06/2017 7:34 AM 017 7:34 (specimen) EST AM EST Daphne Shahid MD POINT OF CARE TEST ORDERABLE S Performing Organization Address City/[facility]/ZIP Code Phon e Number [address] POCT Glucose (07/06/2017 7:03 AM EST) P athologist Signature POC Glucose 181 65 - 199 [facility] Comment: Supplemental ranges: <140 mg/dL before meals <180 mg/dL all other times of the day Specimen Anatomical Collection Method Collection Time Receive d Time (Source) Location / / Volume Laterality Blood specimen 07/06/2017 7:03 AM 017 7:03 (specimen) EST AM EST Daphne Shahid MD POINT OF CARE TEST ORDERABLE S Performing Organization Address City/[facility]/ZIP Code Phon e Number [address] XR Chest PA or [...] Signature POC Glucose 172 65 - 199 [facility] mg/dL [facility] Comment: Supplemental ranges: <140 mg/dL before meals <180 mg/dL all other times of the day Specimen Anatomical Collection Method Collection Time Receive d Time (Source) Location / / Volume Laterality Blood specimen 07/06/2017 6:21 AM 017 6:21 (specimen) EST AM EST Daphne Shahid MD POINT OF CARE TEST ORDERABLE S Performing Organization Address City/State/ZIP Code Phon e Number [address] POCT Glucose (07/06/2017 5:08 AM EST) athologist Signature POC Glucose 154 65 - 199 [facility] Comment: Supplemental ranges: <140 mg/dL before meals <180 mg/dL all other times of the day Specimen Anatomical Collection Method Collection Time Receive d Time (Source) Location / / Volume Laterality Blood specimen 07/06/2017 5:08 AM 017 5:08 (specimen) EST AM EST Daphne Shahid MD POINT OF CARE TEST ORDERABLE S Performing Organization Address City/State/ZIP Code Phon e Number [address] POCT Glucose (07/06/2017 4:05 AM EST) athologist Signature POC Glucose 142 65 - 199 [facility] Comment: Supplemental ranges: <140 mg/dL before meals <180 mg/dL all other times of the day Specimen Anatomical Collection Method Collection Time Receive d Time (Source) Location / / Volume Laterality Blood specimen 07/06/2017 4:05 AM 017 4:05 (specimen) EST AM EST Daphne Shahid MD POINT OF CARE TEST ORDERABLE S Performing Organization Address City/State/ZIP Code Phon e Number [address] POCT Glucose (07/06/2017 3:00 AM EST) P athologist Signature POC Glucose 116 65 - 199 [facility] Comment: Supplemental ranges: <140 mg/dL before meals <180 mg/dL all other times of the day Specimen Anatomical Collection Method Collection Time Receive d Time (Source) Location / / Volume Laterality Blood specimen 07/06/2017 3:00 AM 017 3:00 (specimen) EST AM EST Daphne Shahid MD POINT OF CARE TEST ORDERABLE S Performing Organization Address City/[facility]/ZIP [place] [address] Potassium (07/06/2017 2:20 AM EST) athologist Signature Potassium 3.9 3.5 - 5.0 [facility] mmol/L [facility] Comment: Please note: ??Patients [...] Address City/[facility]/ZIP Code Phon e Number [address] Differential, Automated (07/06/2017 2:20 AM EST) athologist Signature Neutrophils % 72.9 % [facility] Neutr Abs (ANC) 5.53 1.70 - [facility] 6.10 [facility] x10(3)/[facility] LABORATORY Lymphocytes % 16.4 % [facility] Lymphocytes Abs 1.2 0.9 - 3.2 [facility] x10(3)/[facility] LABORATORY Monocytes % 9.4 % [facility] Monocyte Abs 0.7 0.3 - 0.9 [facility] x10(3)/[facility] LABORATORY Eosinophils % 0.5 % [facility] Eosinophils Abs 0.0 0.0 - 0.4 [facility] x10(3)/[facility] LABORATORY Basophils % 0.4 % [facility] Basophils Abs 0.0 0.0 - 0.1 [facility] x10(3)/[facility] LABORATORY Immature Gran % 0.40 [...] 0.03 0.00 - 0.04 x10(3)/[facility]OR[facility]ORY Specimen Anatomical Collection Method Collection Time Receive d Time (Source) Location / / Volume Laterality Blood specimen 07/06/2017 2:20 AM 017 2:33 (specimen) EST AM EST Resulting Agency Comment Spec In Lab Daphne Shahid MD HEMATOLOGY ORDERABLES Performing Organization Address City/State/[place] [address] (ABNORMAL) Hemogram (07/06/2017 2:20 AM EST) Analysis Performed At Patho logist Time Signature WBC 7.6 4.0 - 9.5 [facility] x10(3)/[facility] LABORATORY RBC 4.52 (L) 4.58 - [facility] 5.54 [facility] x10(6)/[facility] LABORATORY Hemoglobin 13.4 (L) 13.7 - [facility] 16.5 gm/dL [facility] Hematocrit 39.7 (L) 40.5 - [facility] 48.5 % [facility] MCV 87.8 82.9 - [facility] 93.1 [facility] LABORATORY MCH 29.6 27.5 - [facility] 32.1 pg [facility] MCHC 33.8 32.0 - [facility] 35.7 gm/dL [facility] Platelets 189 145 - 357 [facility] x10(3)/[facility] LABORATORY RDWSD 45.6 (H) 36.0 - [facility] 45.0 [facility] LABORATORY RDWCV 14.3 (H) 11.4 - [facility] 13.8 % [facility] MPV 9.1 7.6 - 12.9 [facility] fL [facility] nRBC % Auto 0.0 % [facility] nRBC Abs Auto 0.000 0.000 - BARBARA ZHAORYAN 0.000 [facility] x10(3)/[facility] LABORATORY Specimen Anatomical Collection Method Collection Time Receive d Time (Source) Location / / Volume Laterality Blood specimen 07/06/2017 2:20 AM 017 2:33 (specimen) EST AM EST Resulting Agency Comment Spec In Lab Daphne Shahid MD HEMATOLOGY ORDERABLES Performing Organization Address City/[facility]/ZIP Code Phon e Number [address] (ABNORMAL) APTT (07/06/2017 2:20 AM EST) P athologist Signature PTT 52 (H) 25 - 35 sec [facility] Comment: The recommended therapeutic range for fu ll dose, unfractionated heparin at [facility] is 80 ? 114 seconds. The use [...] Address City/[facility]/ZIP [place] [address] POCT Glucose (07/06/2017 2:20 AM EST) P athologist Signature POC Glucose 115 65 - 199 [facility] mg/dL [facility] Comment: Supplemental ranges: <140 mg/dL before meals <180 mg/dL all other times of the day Specimen Anatomical Collection Method Collection Time Receive d Time (Source) Location / / Volume Laterality Blood specimen 07/06/2017 2:20 AM 017 2:20 (specimen) EST AM EST Daphne Shahid MD POINT OF CARE TEST ORDERABLE S Performing Organization Address City/State/ZIP [place] [address] (ABNORMAL) Cardiac Enzymes (LEB/CGP) (07/06/2017 2:20 AM EST) P athologist Signature Troponin-T 2.13 (H) 0.00 - [facility] ng/mL [facility] Comment: The 99th percentile [...] additional sample may be indicated. Reference: [place] Definition of Myocardial Infarction. Journal of the [place] [employer] 2012;60:1581-98 CK, Total 129 0 - 200 unit/L [facility] Specimen Anatomical Collection Method Collection Time Receive d Time (Source) Location / / Volume Laterality Blood specimen 07/06/2017 2:20 AM 017 2:33 (specimen) EST AM EST Resulting Agency Comment Spec In Lab Daphne Shahid MD CHEMISTRY ORDERABLES Performing Organization Address City/State/ZIP [place] [address] (ABNORMAL) Hemoglobin A1c (07/06/2017 2:20 AM EST) Analysis Performed At Patho logist Time Signature Hemoglobin A1C 6.8 (H) 4.3 - 5.6 [facility]BAR[place] DAVIS [facility] Comment: Reference Range: 4.3 [...] Avg Gluc See note mg/dL [facility]BAR[facility] RYAN [facility] Comment: Estimated Average Glucose not [...] with hemoglobinopathies. Additional resources are available on [facility] ADA website. Macario HAMMOND, Ruthann J, Deysi R, et al. ??Tr anslating the A1C assay into estimated average glucose values. ??Diabetes Care 2008:31(8):6727-2456. Specimen Anatomical Collection Method Collection Time Receive d Time (Source) Location / / Volume Laterality Blood specimen 07/06/2017 2:20 AM 017 2:34 (specimen) EST AM EST Resulting Agency Comment Spec In Lab Daphne Shahid MD CHEMISTRY ORDERABLES Performing Organization Address City/State/ZIP [place] [address] (ABNORMAL) Lipid Panel (07/06/2017 2:20 AM EST) [facility] Method Time Signature Chol, Total 150 <=239 BARBARA mg/dL [facility] Triglycerides 129 <=199 [place] mg/dL [facility] HDL 32 (L) >=40 [place] mg/dL [facility] LDL Cholesterol 92 <=190 BARBARA mg/dL [facility] Chol/HDL Ratio 4.7 ratio [facility] Lipid See Note BARBARA Interpretation [facility] Comment: Lipid management should be guided by a p atient? s ASCVD risk, goals and preferences. ACC/AHA Guidelines recommend high intens ity statin if clinical ASCVD or LDL greater than or equal to 190 mg/dL. http://[employer]/PPT-IGL-Gnjsvscqf Adults aged 40-75 with LDL 70-189 mg/dL should have their 10 year ASCVD risk estimated with the ACC/AHA ASCVD risk es timator http://tools.acc.org/APIRM-Wwsu-Bjctvzhx r/ Statin should be discussed if risk [...] Address City/State/ZIP [place] [address] POCT Glucose (07/06/2017 1:09 AM EST) athologist Signature POC Glucose 121 65 - 199 [facility] Comment: Supplemental ranges: <140 mg/dL before meals <180 mg/dL all other times of the day Specimen Anatomical Collection Method Collection Time Receive d Time (Source) Location / / Volume Laterality Blood specimen 07/06/2017 1:09 AM 017 1:09 (specimen) EST AM EST Daphne Shahid MD POINT OF CARE TEST ORDERABLE S Performing Organization Address City/State/ZIP [place] [address] POCT Glucose (07/06/2017 12:06 AM EST) athologist Signature POC Glucose 147 65 - 199 [facility]/dL [facility] Comment: Supplemental ranges: <140 mg/dL before meals <180 mg/dL all other times of the day Specimen Anatomical Collection Method Collection Time Receive d Time (Source) Location / / Volume Laterality Blood specimen 07/06/2017 12:06 7 (specimen) AM EST 12:06 AM EST Daphne Shahid MD POINT OF CARE TEST ORDERABLE S Performing Organization Address City/State/ZIP [place] [address] (ABNORMAL) POCT Glucose (07/05/2017 10:56 PM EST) athologist Signature POC Glucose 200 (H) 65 - 199 BARBARA RYAN mg/dL [facility] Comment: Supplemental ranges: <140 mg/dL before meals <180 mg/dL all other times of the day Specimen Anatomical Collection Method Collection Time Receive d Time (Source) Location / / Volume Laterality Blood specimen 07/05/2017 10:56 7 (specimen) PM EST 10:56 PM EST Daphne Shahid MD POINT OF CARE TEST ORDERABLE S Performing Organization Address City/State/ZIP [place] [address] (ABNORMAL) POCT Glucose (07/05/2017 10:05 PM EST) athologist Signature POC Glucose 225 (H) 65 - 199 [facility]dL [facility] Comment: Supplemental ranges: <140 mg/dL before meals <180 mg/dL all other times of the day Specimen Anatomical Collection Method Collection Time Receive d Time (Source) Location / / Volume Laterality Blood specimen 07/05/2017 10:05 7 (specimen) PM EST 10:05 PM EST Daphne Shahid MD POINT OF CARE TEST ORDERABLE S Performing Organization Address City/[facility]/ZIP [place] [address] (ABNORMAL) POCT Glucose (07/05/2017 9:02 PM EST) athologist Signature POC Glucose 301 (H) 65 - 199 [facility]dL [facility] Comment: Supplemental ranges: <140 mg/dL before meals <180 mg/dL all other times of the day Specimen Anatomical Collection Method Collection Time Receive d Time (Source) Location / / Volume Laterality Blood specimen 07/05/2017 9:02 PM 017 9:02 (specimen) EST PM EST Daphne Shahid MD POINT OF CARE TEST ORDERABLE S Performing Organization Address City/[facility]/ZIP [place] [address] XR Chest PA or [...] 474 ms MUSE SYSTEM (Bezet) Calculated P [place] 50 degrees MUSE SYSTEM Calculated R [place] -28 degrees MUSE SYSTEM Calculated T [place] 90 degrees MUSE SYSTEM INTERPRETATION Sinus tachycardia [...] (ABNORMAL) Differential, Automated (07/05/2017 8:20 PM EST) [facility] Method Time Signature Neutrophils % 88.4 % [facility] Neutr Abs (ANC) 9.08 (H) 1.70 - [facility] 6.10 [facility] x10(3)/[facility] L LABORATORY Lymphocytes % 7.0 % [facility] Lymphocytes Abs 0.7 (L) 0.9 - 3.2 [facility] x10(3)/[facility] LABORATORY Monocytes % 3.7 % [facility] Monocyte Abs 0.4 0.3 - 0.9 [facility] x10(3)/[facility] LABORATORY Eosinophils % 0.1 % [facility] Eosinophils Abs 0.0 0.0 - 0.4 [facility] x10(3)/[facility] LABORATORY Basophils % 0.2 % [facility] Basophils Abs 0.0 0.0 - 0.1 [facility] x10(3)/[facility] LABORATORY Immature Gran % 0.60 [...] 0.06 (H) 0.00 - 0.04 x10(3)/[facility] LABORATORY Specimen Anatomical Collection Method Collection Time Receive d Time (Source) Location / / Volume Laterality Blood specimen 07/05/2017 8:20 PM 017 8:27 (specimen) EST PM EST Resulting Agency Comment Spec In Lab Daphne Shahid MD HEMATOLOGY ORDERABLES Performing Organization Address City/State/[place] [address] (ABNORMAL) Hemogram (07/05/2017 8:20 PM EST) Analysis Performed At Patho logist Time Signature WBC 10.3 (H) 4.0 - 9.5 [facility] x10(3)/[facility] LABORATORY RBC 4.64 4.58 - [facility] 5.54 [facility] x10(6)/[facility] LABORATORY Hemoglobin 14.1 13.7 - [facility] 16.5 gm/dL [facility] Hematocrit 40.8 40.5 - [facility] 48.5 % [facility] MCV 87.9 82.9 - [facility] 93.1 [facility] LABORATORY MCH 30.4 27.5 - [facility] 32.1 pg [facility] HOSPITAL LABORATORY MCHC 34.6 32.0 - [facility] 35.7 gm/dL [facility] LABORATORY Platelets 204 145 - 357 [facility] x10(3)/[facility] LABORATORY RDWSD 46.1 (H) 36.0 - [facility] 45.0 [facility] LABORATORY RDWCV 14.5 (H) 11.4 - [facility] 13.8 % [facility] LABORATORY MPV 9.7 7.6 - 12.9 [facility] LABORATORY nRBC % Auto 0.0 % [facility] LABORATORY nRBC Abs Auto 0.000 0.000 - [facility] 0.000 [facility] x10(3)/[facility] LABORATORY Specimen Anatomical Collection Method Collection Time Receive d Time (Source) Location / / Volume Laterality Blood specimen 07/05/2017 8:20 PM 017 8:27 (specimen) EST PM EST Resulting Agency Comment Spec In Lab Daphne Shahid MD HEMATOLOGY ORDERABLES Performing Organization Address City/State/[place] [address] APTT (07/05/2017 8:20 PM EST) athologist Signature PTT 32 25 - 35 sec [facility] LABORATORY Comment: The recommended therapeutic range for fu ll dose, unfractionated heparin at [facility] is 80 ? 114 seconds. The use [...] Address City/[facility]/ZIP Code Phon e Number [address] (ABNORMAL) Cardiac Enzymes (LEB/CGP) (07/05/2017 8:20 PM EST) P athologist Signature Troponin-T 2.11 (H) 0.00 - BARBARA RYAN 0.00 ng/mL [facility] LABOR[facility] Comment: The 99th percentile [...] additional sample may be indicated. Reference: [place] Definition of Myocardial Infarction. Journal of the [place] [employer] 2012;60:1581-98 CK, Total 149 0 - 200 unit/L [facility] LABORATORY Specimen Anatomical Collection Method Collection Time Receive d Time (Source) Location / / Volume Laterality Blood specimen 07/05/2017 8:20 PM 017 8:27 (specimen) EST PM EST Resulting Agency Comment Spec In Lab Daphne Shahid MD CHEMISTRY ORDERABLES Performing Organization Address City/[facility]/ZIP [place] [address] (ABNORMAL) Magnesium (07/05/2017 8:20 PM EST) athologist Signature Magnesium 0.68 (L) 0.69 - 1.07 [facility] mmol/L [facility] LABORATORY Specimen Anatomical Collection Method Collection Time Receive d Time (Source) Location / / Volume Laterality Blood specimen 07/05/2017 8:20 PM 017 8:27 (specimen) EST PM EST Resulting Agency Comment Spec In Lab Daphne Shahid MD CHEMISTRY ORDERABLES Performing Organization Address City/State/[place] [address] (ABNORMAL) Basic Metabolic Panel (non-fasting) (07/05/2017 8:20 PM EST) athologist Signature Glucose Lvl 321 (H) 65 - 199 [facility] mg/dL [facility] LABOR[facility] Comment: Diabetes: [...] or in patients with acute kidney failure. http://[employer]/DHnkdep http://[employer]/DHMCnkf Specimen Anatomical Collection Method Collection Time Receive d Time (Source) Location / / Volume Laterality Blood specimen 07/05/2017 8:20 PM 017 8:27 (specimen) EST PM EST Resulting Agency Comment Spec In Lab Daphne Shahid MD CHEMISTRY ORDERABLES Performing Organization Address City/State/ZIP [place] [address] (ABNORMAL) POCT Glucose (07/05/2017 7:32 PM EST) P athologist Signature POC Glucose 296 (H) 65 - 199 [facility] mg/dL [facility] LABOR[facility] Comment: Supplemental ranges: <140 mg/dL before meals <180 mg/dL all other times of the day Specimen Anatomical Collection Method Collection Time Receive d Time (Source) Location / / Volume Laterality Blood specimen 07/05/2017 7:32 PM 017 7:32 (specimen) EST PM EST Daphne Shahid MD POINT OF CARE TEST ORDERABLE S Performing Organization Address City/State/ZIP [place] [address] CARDIAC CATHETERIZATION (07/05/2017 6:47 PM EST) Specimen (Source) Anatomical Location Collection Method / Collectio n Time Received Time / Laterality Volume Narrative CARDIOMAC SYSTEM - 07/05/2017 7:27 PM ES T ?[facility] ? Cardiac Cathete rization/Intervention Report ? Patient Name: Natalya, Gregory ? Procedure Date: 07/05/2017 ? A #: [id number] ? Primary Physician: Clarisa, Jet T ? Case #: [id number] ? File Name: [id number] ? Catheterization Order Number: [id number] ? [facility] ? Final Report [place], [place] ? Patient Name: ? Gregory Natalya ?ID#: ?[id number] ? : ?1945 ? Procedure Date: ? [...] presented with: non -STEMI (w/i 7 days). [place] ?[employer] angina c lass was IV. 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 ? Jet Mckenna M.D. ? Electronically Signed by: Jet bunch M.D. ? Report Finalized: 07/05/2017 ??19:23 ? Report Last Ammended: 10/26/2017 ??10:29 ? Procedure Note Jet Mckenna MD - 10/26/2017Formatt ing of this note might be different from the original. [facility] Cardiac Catheterization/Intervention Re port Patient Name: Gregory Hoang Procedure Date: 07/05/2017 A #: [id number] Primary Physician: Jet Mckenna Case #: [id number] File Name: [id number] Catheterization Order Number: [id number] [facility] Final Report [place], [place] Patient Name: Gregory Hoang ID#: [id number] : 1945 Procedure Date: July 05, [...] presented with: non-STEMI ( w/i 7 days). [place] [employer] angina class was IV. 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 Jet Mckenna M.D. Electronically Signed by: [...] Mccollum ? (Age): 1945(72y) Med Rec#: ? [id number] ?Sex: ?M ? Site Loc: ? [facility] ?Ht / Wt: ??173(cm)/86(kg) Pt. Loc: ?[facility] ? BSA: ?2 Study Date: ?? 07/05/2017 ?Pt. Type: Inpatient Tape: ? Referring: Daphne Shahid ([id number]) Referring: MANDA ALCANTAR Reading: Blade Preston ([id number]) Dam Tender Assistant: Dayami Paula BA, [facility] Diagnosis: *ICD-10-PCS [...] E-wave Vmax ?0.8 ?m/sec ? MV deceleration [id number] ?msec ? MV A-wave Vmax ?0.8 ?m/sec [...] ? Mid-Inferior ?Akinetic ? Mid-Inferoseptal ?Hypokinetic ? Odell-Septal ? Akinetic ? Odell-Anterior ? Hypokinetic ? Odell-Lateral ?Hypokinetic ? Odell-Inferior ? Akinetic ? Odell-Tip ?Akinetic ? This report has been electronically sign ed by: _ Blade Preston MD ? 07/06/2017 08 :53:15 Images reviewed and interpretation [facility] Cardiac Ultrasound Laboratory Procedure Note Blade Preston MD - 07/06/2017Formatt ing of this note might be different from the original. Procedure: Transthoracic Echocardiogram Patient: NATALYA MCBRIDE(Age): [birth year]72y) Med Rec#: [id number] Sex: M Site Loc: [facility] Ht / Wt: 173(cm)/86(kg) Pt. Loc: [facility] BSA: 2 Study Date: 07/05/2017 Pt. Type: Inpatie nt Tape: Referring: Daphne Shahid ([id number]) Referring: MANDA ALCANTAR Reading: Blade Prestno ([id number]) Dam Tender Assistant: Dayami Paula BA, [facility] Diagnosis: *ICD-10-PCS [...] MV E-wave Vmax 0.8 m/sec MV deceleration [id number] msec MV A-wave Vmax 0.8 m/sec MV [...] Hypokinetic Mid-Posterolateral Hypokinetic Mid-Inferior Akinetic Mid-Inferoseptal Hypokinetic Odell-Septal Akinetic Odell-Anterior Hypokinetic Odell-Lateral Hypokinetic Odell-Inferior Akinetic Odell-Tip Akinetic This report has been electronically sign ed by: _ Blade Preston MD 07/06/2017 08:53:15 Images reviewed and interpretation verif ied [facility] Cardiac Ultrasound Laboratory Daphne Shahid MD ECHO ORDERABLES Performing Organization Address City/State/ZIP Code Phon e Number [facility] Differential, Automated (07/05/2017 4:55 PM EST) P athologist Signature Neutrophils % 77.0 % [facility] LABORATORY Neutr Abs (ANC) 5.26 1.70 - [facility] 6.10 [facility] x10(3)/[facility] LABORATORY Lymphocytes % 13.3 % [facility] LABORATORY Lymphocytes Abs 0.9 0.9 - 3.2 [facility] x10(3)/[facility] LABORATORY Monocytes % 8.2 % [facility] LABORATORY Monocyte Abs 0.6 0.3 - 0.9 [facility] x10(3)/[facility] LABORATORY Eosinophils % 0.7 % [facility] LABORATORY Eosinophils Abs 0.0 0.0 - 0.4 [facility] x10(3)/[facility] LABORATORY Basophils % 0.4 % [facility] LABORATORY Basophils Abs 0.0 0.0 - 0.1 [facility] x10(3)/[facility] LABORATORY Immature Gran % 0.40 [...] 0.03 0.00 - 0.04 x10(3)/[facility] LABORATORY Specimen Anatomical Collection Method Collection Time Receive d Time (Source) Location / / Volume Laterality Blood specimen 07/05/2017 4:55 PM 017 5:24 (specimen) EST PM EST Resulting Agency Comment Spec In Lab Daphne Shahid MD HEMATOLOGY ORDERABLES Performing Organization Address City/State/ZIP Code Phon e Number [place] [id number] HOSPITAL LABORATORY Drive (ABNORMAL) Hemogram (07/05/2017 4:55 PM EST) Analysis Performed At Patho logist Time Signature WBC 6.8 4.0 - 9.5 [facility] x10(3)/[facility] LABORATORY RBC 4.67 4.58 - [facility].54 [facility] x10(6)/[facility] LABORATORY Hemoglobin 14.0 13.7 - [facility] 16.5 gm/dL [facility] LABORATORY Hematocrit 41.0 40.5 - [facility] 48.5 % [facility]ORATORY MCV 87.8 82.9 - [facility] 93.1 fL [facility]ORATORY MCH 30.0 27.5 - [facility] 32.1 pg [facility] LABORATORY MCHC 34.1 32.0 - [facility] 35.7 gm/dL [facility] LABORATORY Platelets 197 145 - 357 [facility] x10(3)/[facility] LABORATORY RDWSD 46.4 (H) 36.0 - [facility] 45.0 [facility] LABORATORY RDWCV 14.5 (H) 11.4 - [facility] 13.8 % [facility] LABORATORY MPV 9.7 7.6 - 12.9 [facility] LABORATORY nRBC % Auto 0.0 % [facility] LABORATORY nRBC Abs Auto 0.000 0.000 - [facility] ZHAORYAN 0.000 [facility] x10(3)/[facility] LABORATORY Specimen Anatomical Collection Method Collection Time Receive d Time (Source) Location / / Volume Laterality Blood specimen 07/05/2017 4:55 PM 017 5:24 (specimen) EST PM EST Resulting Agency Comment Spec In Lab Daphne Shahid MD HEMATOLOGY ORDERABLES Performing Organization Address City/State/ZIP Code Phon e Number [place] [id number] HOSPITAL LABORATORY Drive (ABNORMAL) Cardiac Enzymes (LEB/CGP) (07/05/2017 4:55 PM EST) athologist Signature Troponin-T 1.69 (H) 0.00 - [facility] DAVIS 0.00 ng/mL [facility]OR[facility] Comment: The 99th percentile [...] additional sample may be indicated. Reference: [place] Definition of Myocardial Infarction. Journal of the [place] College of Cardiology 2012;60:1581-98 CK, Total 191 0 - 200 unit/L [facility] LABORATORY Specimen Anatomical Collection Method Collection Time Receive d Time (Source) Location / / Volume Laterality Blood specimen 07/05/2017 4:55 PM 017 5:56 (specimen) EST PM EST Resulting Agency Comment Spec In Lab Daphne Shahid MD CHEMISTRY ORDERABLES Performing Organization Address City/[facility]/ZIP Code Phon e Number [address] (ABNORMAL) pro-Brain Natriuretic Peptide (07/05/2017 4:55 PM EST) athologist Signature ProBNP 1,598 (H) <=125 [facility] pg/mL [facility] LABORATORY Specimen Anatomical Collection Method Collection Time Receive d Time (Source) Location / / Volume Laterality Blood specimen 07/05/2017 4:55 PM 017 5:24 (specimen) EST PM EST Resulting Agency Comment Spec In Lab Daphne Shahid MD CHEMISTRY ORDERABLES Performing Organization Address City/[facility]/ZIP [place] [address] Magnesium (07/05/2017 4:55 PM EST) athologist Signature Magnesium 0.78 0.69 - 1.07 [facility] mmol/L [facility] LABORATORY Specimen Anatomical Collection Method Collection Time Receive d Time (Source) Location / / Volume Laterality Blood specimen 07/05/2017 4:55 PM 017 5:24 (specimen) EST PM EST Resulting Agency Comment Spec In Lab Daphne Shahid MD CHEMISTRY ORDERABLES Performing Organization Address City/[facility]/ZIP [place] [address] (ABNORMAL) Basic Metabolic Panel (non-fasting) (07/05/2017 4:55 PM EST) P athologist Signature Glucose Lvl 230 (H) 65 - 199 [facility] mg/dL [facility] Comment: Diabetes: [...] or in patients with acute kidney failure. http://[employer]/DHnkdep http://[employer]/DHMCnkf Specimen Anatomical Collection Method Collection Time Receive d Time (Source) Location / / Volume Laterality Blood specimen 07/05/2017 4:55 PM 017 5:24 (specimen) EST PM EST Resulting Agency Comment Spec In Lab Daphne Shahid MD CHEMISTRY ORDERABLES Performing Organization Address City/State/[place] [address] (ABNORMAL) APTT (07/05/2017 4:55 PM EST) athologist Signature PTT 41 (H) 25 - 35 sec [facility] LAB[facility] Comment: The recommended therapeutic range for fu ll dose, unfractionated heparin at [facility] is 80 ? 114 seconds. The use [...] Address City/[facility]/ZIP Code Phon e Number [address] (ABNORMAL) POCT Glucose (07/05/2017 4:53 PM EST) P athologist Signature POC Glucose 208 (H) 65 - 199 [facility] mg/dL [facility] LABORAT[facility] Comment: Supplemental ranges: <140 mg/dL before meals <180 mg/dL all other times of the day Specimen Anatomical Collection Method Collection Time Receive d Time (Source) Location / / Volume Laterality Blood specimen 07/05/2017 4:53 PM 017 4:53 (specimen) EST PM EST Daphne Shahid MD POINT OF CARE TEST ORDERABLE S Performing Organization Address City/[facility]/ZIP [place] [address] EKG 12 Lead (07/05/2017 4:32 PM EST) Component Value Ref Range Test Analysis Performed Pathologis t Method Time At Signature Ventricular rate 97 BPM MUSE SYSTEM Atrial Rate 97 BPM MUSE SYSTEM P-R Interval 148 ms MUSE SYSTEM QRS Duration 96 ms MUSE SYSTEM Q-T Interval 364 ms MUSE SYSTEM QTC Calculated 462 ms MUSE SYSTEM (Bezet) Calculated P [place] 48 degrees MUSE SYSTEM Calculated R [place] -33 degrees MUSE SYSTEM Calculated T [place] 98 degrees MUSE SYSTEM INTERPRETATION Normal sinus [...] ECG ORDERABLES Performing Organization Address City/State/ZIP Code [facility] e Number MUSE SYSTEM documented in [...] in this encounter Care Teams Sales Support Advisor Relationship Specialty Start Date End Date Lovely Vicente MD PCP - General 04/16/[address] [place] [address] documented as of this encounter
--- OUTSIDE RECORDS SUMMARY | 2022-03-16 08:24 | XMS_ITS | Encounter Summary ---
:1945 Author Organization [facility] [place] [address] Care Team Providers Name Role Phone Angela Holliday APRN Primary Care Provider Encounter Details Date Type Department Care Team Description 04/30/2014 Orders Only Endocrinology at [facility] Albertina Palmer, Thyroid cancer [facility] Jorge Boyer MD (Primary Dx) [place] [address] [facility] [phone] CENTER ENDOCRINOLOGY DEPT [place], [place] [address] Social History Tobacco Use Types [...] Nobles MD [facility] ER CARDIOLOGY [place], [place] [address] (Wo rk) 05/28/2022 Appointment Cardiology Zulma Dolan MD [facility] [place], [place] [address] (Wo rk) 05/28/2022 Laboratory Appointment Lab 05/28/2022 Office Visit Cardiology Zulma Dolan [place] [address] Liz Poole PA [facility] [place] [address] 06/10/2022 Office Visit Dermatology Laura Scherer MD [facility] [address], [place] [address] (Wo rk) documented as of this encounter Visit Diagnoses Diagnosis Thyroid cancer - Primary Malignant neoplasm of thyroid gland documented in this encounter Care Teams Fiberglass Luggage Molder Relationship Specialty Start Date End Date Angela Holliday APRN PCP - General 01/25/13 04/15/[address] [place] [address] documented as of this encounter
--- OUTSIDE RECORDS SUMMARY | 2022-03-16 08:24 | XMS_ITS | Encounter Summary ---
:1945 Author Organization [facility] [place] [address] Care Team Providers Name Role Phone Lovely Vicente MD Primary Care Provider Reason for Visit Reason Comments Skin Check Encounter Details Date Type Department Care Team Description 04/16/2015 Follow-Up Dermatology at [facility] x of melanoma of skin; Abdelrahman HOOPER MD Multiple benign nevi [address] [place] [address] [facility] [place] [place], [place] [address] (Wo rk) Social History Tobacco [...] Drum (ACCU-CHEK COMPACT TEST) Strip by [facility].(Non- Drug; Combo Route) route 2 times daily. [...] encounter. Rigoberto Garcia MD Section of Dermatology [facility] documented in this encounter Plan of Treatment Upcoming Encounters Date Type Specialty Care Team Description 03/26/2022 Office Visit Cardiology Vitaliy Nobles MD [facility] [address] [place], [place] [address] (Wo rk) 05/28/2022 Appointment Cardiology Zulma Dolan MD [facility] [place], [place] [address] (Wo rk) 05/28/2022 Laboratory Appointment Lab 05/28/2022 Office Visit Cardiology Zulma Dolan MD [facility] [place] [address] Liz Poole PA [facility] [place] [address] 06/10/2022 Office Visit Dermatology Laura Scherer MD [facility] [address], [place] [address] (Wo rk) documented as of this encounter Visit Diagnoses Diagnosis Hx of melanoma of skin Personal history of malignant melanoma o f skin Multiple benign nevi Benign neoplasm of skin, site unspecifie d documented in this encounter Care Teams Mechanical Drawing Teacher Relationship Specialty Start Date End Date Lovely Vicente MD PCP - General 04/16/[address] [place] [address] documented as of this encounter
--- OUTSIDE RECORDS SUMMARY | 2022-03-16 08:24 | XMS_ITS | Encounter Summary ---
:1945 Author Organization [facility] Address [facility] [place] [address] Care Team Providers Name Role Phone Lovely Vicente MD Primary Care Provider Reason for Visit Reason Comments Skin Check Encounter Details Date Type Department Care Team Description 11/05/2015 Office Visit Dermatology at [facility] benign nevi; Abdelrahman HOOPER MD Lentigines; [address] [facility] History of melanoma; [place] [address] Skin exam for malignant neoplasm [phone] [facility] [place], [place] [address] Social History Tobacco Use Types [...] Diagnostic, Drum (ACCU-CHEK COMPACT TEST) Strip by [facility].(Non- Drug; Combo Route) route 2 times [...] Rigoberto Garcia MD Section of Dermatology [facility] documented in this encounter Plan of Treatment Upcoming Encounters Date Type Specialty Care Team Description 03/26/2022 Office Visit Cardiology Vitaliy Nobles MD [facility] [address] [place], [place] [address] (Wo rk) 05/28/2022 Appointment Cardiology Zulma Dolan MD [facility] [place], [place] [address] (Wo rk) 05/28/2022 Laboratory Appointment Lab 05/28/2022 Office Visit Cardiology Zulma Dolan MD [facility] [place] [address] Liz Poole PA [facility] [place] [address] 06/10/2022 Office Visit Dermatology Laura Scherer MD [facility] [address], [place] [address] (Wo rk) documented as of this encounter Visit Diagnoses Diagnosis Multiple benign nevi Benign neoplasm of skin, site unspecifie d Lentigines Other dyschromia History of melanoma Personal history of malignant melanoma o f skin Skin exam for malignant neoplasm Screening for malignant neoplasm of the skin documented in this encounter Care Teams Independent Insurance Adjuster Relationship Specialty Start Date End Date Lovely Vicente MD PCP - General 04/16/[address] [place] [address] documented as of this encounter
--- OUTSIDE RECORDS SUMMARY | 2022-03-16 08:24 | XMS_ITS | Encounter Summary ---
:1945 Author Organization [facility] [place] [address] Care Team Providers Name Role Phone MiyaLokeshAngela STACIE Primary Care Provider Encounter Details Date Type Department Care Team Description 01/16/2014 Hospital Encounter Gastroenterology at [facility] Nohemi Swann, [facility] [place] [address] [facility] [phone] [facility] [place], [place] [address] Social History Tobacco Use [...] you need to be checked. Wednesday-Wednesday Clinic [phone] 8a-5p Same Day Endo [phone] 7a-8p Otherwise contact [phone] and ask to speak to the machine brush maker avionics electrical engineer Follow up care is a shelton [...] Swann MD - 01/16/2014 9:49 AM EDT [facility] Operative Note Patient Name: Gregory Fatima : [id number] MR#: [id number] Case Date: 01/16/2014 Surgeon: Surgeon(s) and Role: * Nohemi Swann MD - Primary Preoperative diagnosis: 5 yr surv. Full procedure note is documented under the Procedure section of eDH. documented in this encounter Plan of Treatment Upcoming Encounters Date Type Specialty Care Team Description 03/26/2022 Office Visit Cardiology Vitaliy Nobles MD [facility] [address] CARLYLE [place], [place] [address] (Wo rk) 05/28/2022 Appointment Cardiology Zulma Dolan MD [facility] [address] [place] [address] (Wo rk) 05/28/2022 Laboratory Appointment Lab 05/28/2022 Office Visit Zulma Garrison MD [facility] [place] [address] iLz Poole PA [facility] [place] [address] 06/10/2022 Office Visit Dermatology Laura Scherer MD [facility] ER DR TEJA GR-DERMAT [place], [place] 0[address] (Wo rk) documented as [...] Surgical Pathology Report (01/16/2014 9:53 AM EDT) [facility] gist Method Time Signature Surgical CERNER Pathology ? [facility] Report ? Provider: ?? NOHEMI SWANN ?Pt. Name: ?? MALICKEliseo RT, GREGORY E ? Acc #: ?[id number] ?Pt. MRN: ?[id number] ? Col Date: ?? 4 ? /Sex: [...] Organization Address City/State/[place] [address] [facility] Specimen to Pathology (surgical or [...] Organization Address [facility]/ZIP [place] [address] CERNER MILLENNIUM Specimen to [...] MD PATHOLOGY/CYTOLOGY ORDERABLE S Performing Organization Address City/[facility] [place] [address] CERNER MILLENNIUM COLONOSCOPY (01/16/2014 7:25 AM EDT) [facility] Method Time Signature COLONOSCOPY [facility] PROVATION Endoscopy Patient Name: Gregory Fatima ? Procedure Date: 01/16/2014 7:25 AM ? Date of : 1945 ? Age: 68 ? Order #: [id number] ? Procedure: ? Colonoscopy Indications: ? High [...] Laterality 01/16/2014 7:25 AM EDT Angela Sotelo SUPERVISOR MAPPING GENERAL SURGICAL ORDERABLES Performing Organization Address City/State/ZIP [...] Routine documented in this encounter Care Teams Qa Internship Relationship Specialty Start Date End Date Angela Sotelo APRN PCP - General 01/25/13 04/15/[address] [place] [address] documented as of this encounter
--- OUTSIDE RECORDS SUMMARY | 2022-03-16 08:24 | XMS_ITS | Encounter Summary ---
:1945 Author Organization [facility] [place] [address] Care Team Providers Name Role Phone Angela Holliday APRN Primary Care Provider Reason for Visit Reason Comments Other Encounter Details Date Type Department Care Team Description 08/01/[address] [facility] Rigoberto Garcia III, [address] [place] [address] [facility] [phone] TEJA MARIE-DERMAT [place], [place] [address] (Wo rk) Social History Tobacco [...] them. Component Value Surgical Pathology Final Report [facility] Provider: RIGOBERTO GARCIA III Pt. Name: DON HOANG Acc #: [id number] Pt. 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 CR-0 08/01/13 BJM 08/01/13 Verified by: Ian STRANGE, PhD, [facility] Dermatopathologist (Electronic Signature) The attending pathologist [...] [facility] [address] THOMAS [place], [place] [address] (Wo rk) 05/28/2022 Appointment Cardiology Zulma Dolan MD [facility] [address] [place] [address] (Wo rk) 05/28/2022 Laboratory Appointment Lab 05/28/2022 Office Visit Zulma Garrison MD [facility] [place] [address] Liz Poole PA [facility] [place] [address] 06/10/2022 Office Visit Dermatology Laura Scherer MD [facility] ER DR TEJA MARIE-DERMAT [place], [place] [address] (Wo rk) documented as of this encounter Visit Diagnoses Not on filedocumented in this encounter Care Teams Baccarat Manager Relationship Specialty Start Date End Date Angela Holliday APRN PCP - General 01/25/13 04/15/[address] [place] [place] [address] documented as of this encounter
--- OUTSIDE RECORDS SUMMARY | 2022-03-16 08:24 | XMS_ITS | Encounter Summary ---
:1945 Author Organization [place] [address] Care Team Providers Name Role Phone MiyaLokeshAngela STACIE Primary Care Provider Encounter Details Date Type Department Care Team Description 04/04/2013 Orders Only General Surgery at Manny Mcknight thyroid [facility] MD Eliseo carcinoma (Primary Dx) [facility] [place] [address] GENERAL SURGERY [phone] [place], [place] [address] Social History Tobacco Use Types [...] Nobles MD [facility] ER DR CARLYLE [place], [place] [address] (Wo rk) 05/28/2022 Appointment Cardiology Zulma Dolan MD [facility] [address] [place] [address] (Wo rk) 05/28/2022 Laboratory Appointment Lab 05/28/2022 Office Visit Cardiology Zulma Dolan MD [facility] [place] [address] Liz Poole PA [facility] Cardiology [place] [address] 06/10/2022 Office Visit Dermatology Laura Scherer MD [facility] ER DR TEJA GR-DERMAT [place], [place] [address] (Wo rk) documented as of this encounter Visit Diagnoses Diagnosis Papillary thyroid carcinoma - Primary Malignant neoplasm of thyroid gland documented in this encounter Care Teams Crystalizer Tender Relationship Specialty Start Date End Date Angela Holliday APRN PCP - General 01/25/13 04/15/[address] [place] [address] documented as of this encounter
--- OUTSIDE RECORDS SUMMARY | 2022-03-16 08:24 | XMS_ITS | Encounter Summary ---
:1945 Author Organization [facility] [place] [address] Care Team Providers Name Role Phone MiyaAngela STACIE Primary Care Provider Reason for Visit Reason Comments Post Op voiding trial Encounter Details Date Type Department Care Team Description 04/05/2013 Office Visit Urology at [facility] Darryl Egan, UTI ([facility] MD tract infection) [facility] (Primary Dx) [place] [address] UROLOGY DEPT [phone] [place], [place] [address] Social History Tobacco Use Types [...] Nobles MD [facility] DR TADEO [place], [place] [address] (Wo rk) 05/28/2022 Appointment Cardiology Zulma Dolan MD [facility] [place], [place] 0[address] (Wo rk) 05/28/2022 Laboratory Appointment Lab 05/28/2022 Office Visit Cardiology Zulma Dolan MD [facility] [place] [address] Liz Poole PA [facility] [place] [address] 06/10/2022 Office Visit Dermatology Laura Scherer MD [facility] DR TEJA GR-DERMAT [place], [place] [address] (Wo rk) documented as of this encounter Procedures Procedure Name Priority Date/Time Associated Diagnosis Comme nts URINE CULTURE Routine 04/05/2013 11:48 AM UTI (lower urinary R esults for this EDT tract infection) procedure a re in the results section . documented in this encounter Results Urine culture Clean Catch Urine (04/05/2013 11:48 AM EDT) Component Value Ref Test Analysis Performed At [facility] Range Method Time Signature Urine Culture CERNER ? Patient Name: GREGORY HOANG ? Or[facility]: [facility] ? MR#: [id number] ?LOC: ??5B ? /Sex: ??1945 (68 years), [...] S ? Patient: GREGORY HOANG ? MR#: [id number] ? FOOTNOTES ? (1) ? This organism [...] Address City/State/[place] [address] HOSPITAL LABORATORY [facility] documented in this encounter Visit Diagnoses Diagnosis UTI (lower urinary tract infection) - Pr imary Urinary tract infection, site not specif ied documented in this encounter Care Teams Protector Plate Attacher Relationship Specialty Start Date End Date Angela Holliday APRN PCP - General 01/25/13 04/15/[address] [place] [address] documented as of this encounter
--- OUTSIDE RECORDS SUMMARY | 2022-03-16 08:24 | XMS_ITS | Encounter Summary ---
:1945 Author Organization [facility] [place] [address] Care Team Providers Name Role Phone Lovely Vicente MD Primary Care Provider Reason for Visit Reason Onset Date Comments Pre Procedure Call 12/02/2016 Encounter Details Date Type Department Care Team Description 12/02/2016 Telephone Dermatology at [facility] Mira James LPN Pre Procedure Call [address] [place] [address] Social History Tobacco Use Types Packs/Day [...] Vitaliy Nobles MD [facility] [address] THOMAS [place], [place] [address] (Wo lissa) 05/28/2022 Appointment Cardiology Zulma Dolan MD [facility] [address] [place] [address] (Wo rk) 05/28/2022 Laboratory Appointment Lab 05/28/2022 Office Visit Zulma Garrison MD [facility] [place] [address] Liz Poole PA [facility] [place] [address] 06/10/2022 Office Visit Dermatology Laura Scherer MD [facility] DR TEJA GR-DERMAT [place], [place] [address] (Wo rk) documented as of this encounter Visit Diagnoses Not on filedocumented in this encounter Care Teams Visual Stylist Relationship Specialty Start Date End Date Lovely Vicente MD PCP - General 04/16/15 [facility] [address] [place] [address] documented as of this encounter
--- OUTSIDE RECORDS SUMMARY | 2022-03-16 08:24 | XMS_ITS | Encounter Summary ---
:1945 Author Organization [place] [address] Care Team Providers Name Role Phone Som Holliday APRN Primary Care Provider Encounter Details Date Type Department Care Team Description 04/11/2014 Procedure visit Gastroenterology at [facility]V Esophageal reflux [facility] Luz Winchester RN (Primary Dx) [place] [address] Social History Tobacco Use Types Packs/Day Years Used Date Former Smoker Alcohol Use Standard Drinks/Week Comments No 0 (1 standard drink = 0.6 oz pure alcoho l) Sex Assigned at Date Recorded Not on file documented as of this encounter Progress Notes Adalid Can MD - 04/13/2014 3:43 PM EDT ESOPHAGEAL MANOMETRY Don Fatima Male, 69 yrs, 1945 PCP: SOM HOLLIDAY RE ETCHER: NONE STUDY DATE: 04/11/14 PROVIDER: Adalid Can, PhD, [place] ([id number]) INDICATION Reflux; preoperative evaluation. METHODS Stationary esophageal manometry was performed with the Omnisens esophageal motility system utilizing the Polygram software [...] of the esophagus. Adalid Can, PhD, MD supervisor concrete block plant, [facility] [employer] Section of Gastroenterology and Hepatology [facility] [place] [address] V: [phone] F: [phone] [facility]/gabriela CC/EC: PCP - staff msg copy 04/13/14 Henrique Taylor MD - fax copy 04/13/14 Luz Keller RN - 04/11/2014 8:14 AM EDT Esophageal manometry performed without difficulty and Was well tolerated. documented in this encounter Plan of Treatment Upcoming Encounters Date Type Specialty Care Team Description 03/26/2022 Office Visit Cardiology Vitaliy Nobles MD [facility] DR TADEO [place], [place] [address] (Wo rk) 05/28/2022 Appointment Cardiology Zulma Dolan MD [facility] [address] [place], [place] [address] (Wo rk) 05/28/2022 Laboratory Appointment Lab 05/28/2022 Office Visit Cardiology Zulma Dolan MD [facility] [place] [address] Liz Poole PA [facility] [place] [address] 06/10/2022 Office Visit Dermatology Laura Scherer MD [facility] DR TEJA GR[address]DERMAT [place], [place] [address] (Wo rk) documented as of this encounter Visit Diagnoses Diagnosis Esophageal reflux - Primary documented in this encounter Care Teams Door Fitter Relationship Specialty Start Date End Date Som Holliday APRN PCP - General 01/25/13 04/15/[address] [place] [address] documented as of this encounter
--- OUTSIDE RECORDS SUMMARY | 2022-03-16 08:24 | XMS_ITS | Encounter Summary ---
:1945 Author Organization [facility] [place] [address] Care Team Providers Name Role Phone Lovely Vicente MD Primary Care Provider Reason for Visit Reason Comments Medication Refill Encounter Details Date Type Department Care Team Description 05/10/2015 Refill Endocrinology at [facility] Rosalind Covarrubias, [facility] [place] [address] [facility] [phone] ENDOCRINOLOGY [place], [place] [address] (Mikayla alcaraz) Social History Tobacco [...] MD [facility] ER [address] [place]LE [place], [place] [address] (Wo rk) 05/28/2022 Appointment Cardiology Zulma Dolan MD [facility] er Dr [place] [address] (Wo rk) 05/28/2022 Laboratory Appointment Lab 05/28/2022 Office Visit Cardiology Zulma Dolan MD [facility] [place] [address] [facility] [place] [address] 06/10/2022 Office Visit Dermatology Laura Scherer MD [facility] ER DR [address]-DERMAT [place], [place] [address] (Wo rk) documented as of this encounter Visit Diagnoses Not on filedocumented in this encounter Care Teams Quill Worker Relationship Specialty Start Date End Date Lovely Vicente MD PCP - General 04/16/[address] [place] [address] documented as of this encounter
--- OUTSIDE RECORDS SUMMARY | 2022-03-16 08:24 | XMS_ITS | Encounter Summary ---
:1945 Author Organization [facility] [place] [address] Care Team Providers Name Role Phone Lovely Vicente MD Primary Care Provider Encounter Details Date Type Department Care Team Description 07/10/2016 Telephone Dermatology at [facility] Rigoberto White III, [address] [place] [address] [facility] [phone] [facility] MAR[facility]DERMAT [place], [place] [address] (Wo rk) Social History Tobacco [...] Nobles MD [facility] DR TADEO [place], [place] [address] (Wo rk) 05/28/2022 Appointment Cardiology Zulma Dolan MD [facility] [place], [place] [address] (Wo rk) 05/28/2022 Laboratory Appointment Lab 05/28/2022 Office Visit Cardiology Zulma Dolan MD [place] [address] Liz Poole PA [facility] [place] [address] 06/10/2022 Office Visit Dermatology Laura Scherer MD [facility] DR [address]-DERMAT [place], [place] [address] (Wo rk) documented as of this encounter Visit Diagnoses Not on filedocumented in this encounter Care Teams Glass Rolling Machine Operator Relationship Specialty Start Date End Date Lovely Vicente MD PCP - General 04/16/[address] [place] [address] documented as of this encounter
--- OUTSIDE RECORDS SUMMARY | 2022-03-16 08:24 | XMS_ITS | Encounter Summary ---
:1945 Author Organization [facility] [place] [address] Care Team Providers Name Role Phone Lovely Vicente MD Primary Care Provider Reason for Visit Reason Comments Thyroid Cancer Encounter Details Date Type Department Care Team Description 06/05/2015 Office Visit Endocrinology at [facility] Albertina Prescott, History of papillary [facility] MD Luz adenocarcinoma of [facility] thyroid (Primary Dx) [place] [address] CENTER [phone] [place] [address] Social History Tobacco Use Types Packs/Day Years [...] the thyroid gland were obtained using a [employer] ultrasound machine. All measurements are given as AP x Transverse x Longitudinal Right Lobe: Absent Left Lobe: Absent Isthmus: Absent Central/Lateral neck: no morphologically abnormal lymph nodes. Impression: No sonographic evidence of recurrence. LUZ PRESCOTT MD Clarifier Operatoraquarium specialist Section of Endocrinology [facility] Luz Prescott MD - 06/05/2015 8:21 AM [...] Strip by [facility].(Non-Drug; Combo Route) route 2 times daily. Yes [...] --f/u in 1 year LUZ PRESCOTT MD Clarifier Operatoraquarium specialist Section of Endocrinology [facility] documented in this encounter Miscellaneous Notes Addendum [...] Nobles MD [facility] DR CARLYLE [place], [place] [address] (Wo rk) 05/28/2022 Appointment Cardiology Zulma Dolan MD [facility] Dr [place], [place] [address] (Wo rk) 05/28/2022 Laboratory Appointment Lab 05/28/2022 Office Visit Cardiology Zulma Dolan MD [facility] [place] [address] Liz Poole PA [facility] [place] [address] 06/10/2022 Office Visit Dermatology Laura Scherer MD [facility] DR [address]-DERMAT [place], [place] [address] (Wo rk) documented as of [...] athologist Signature Thyroglobulin 0.6 <=54.9 CERNER ng/mL [facility] Comment: Interpret with caution. Tg levels [...] than those obtained with T4 withdrawal protocol ([place] BR et al. J Clin Endo Metab 1999;84:4597-8212). 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
--- OUTSIDE RECORDS SUMMARY | 2022-03-16 08:24 | XMS_ITS | Encounter Summary ---
:1945 Author Organization [facility] [place] [address] Care Team Providers Name Role Phone Angela Holliday APRN Primary Care Provider Reason for Visit Reason Comments Benign Prostatic Hypertrophy Encounter Details Date Type Department Care Team Description 11/28/2013 Follow-Up Urology at [facility] Blade Smith, Urinary retention (Primary D x); [facility] BPH (benign prostatic hyperplasia) [place] [address] UROLOGY DEPT [place], [place] [address] (Wo rk) Social History Tobacco [...] MD [facility] DR TADEO [place], [place] [address] (Wo rk) 05/28/2022 Appointment Cardiology Zulma Dolan MD [facility] [place], [place] [address] (Wo rk) 05/28/2022 Laboratory Appointment Lab 05/28/2022 Office Visit Cardiology Zulma Dolan MD [facility] [place] [address] Liz Poole PA [facility] [place] [address] 06/10/2022 Office Visit Dermatology Laura Scherer MD [facility] DR TEJA GR[address]DERMAT [place], [place] [address] (Wo rk) documented as of [...] Address City/State/[place] [address] [facility] documented in this encounter Visit Diagnoses Diagnosis Urinary retention - Primary Retention of urine, unspecified BPH (benign prostatic hyperplasia) Unspecified hyperplasia of prostate with out urinary obstruction and other lower urinary tract symptoms (LUTS) documented in this encounter Care Teams Carburetor Repairer Relationship Specialty Start Date End Date Angela Holliday APRN PCP - General 01/25/13 04/15/[address] [place] [address] documented as of this encounter
--- OUTSIDE RECORDS SUMMARY | 2022-03-16 08:24 | XMS_ITS | Encounter Summary ---
:1945 Author Organization [facility] [place] [address] Care Team Providers Name Role Phone Lovely Vicente MD Primary Care Provider Reason for Visit Reason Comments Skin Check Encounter Details Date Type Department Care Team Description 06/05/2016 Office Visit Dermatology at Rigoberto Forman istory of melanoma; Abdelrahman HOOPER MD Seborrheic keratosis; [address] [place] [address] [facility] [place] (actinic keratosis); [place] [address] Multiple nevi; [phone] [facility] [address]DERMATOLGY [place], [place] [address] Social History Tobacco Use Types [...] Diagnostic, Drum (ACCU-CHEK COMPACT TEST) Strip by [facility].(Non- Drug; Combo Route) route 2 times daily. [...] encounter. Rigoberto Garcia MD Section of Dermatology [facility] documented in this encounter Plan of Treatment Upcoming Encounters Date Type Specialty Care Team Description 03/26/2022 Office Visit Cardiology Vitaliy Nobles MD [facility] CARDIOLOGY [place], [place] [address] (Wo rk) 05/28/2022 Appointment Cardiology Zulma Dolan MD [facility] [place], [place] [address] (Wo rk) 05/28/2022 Laboratory Appointment Lab 05/28/2022 Office Visit Cardiology Zulma Dolan MD [facility] [place] [address] Liz Poole PA [facility] [place] [address] 06/10/2022 Office Visit Dermatology Laura Scherer MD [facility] [address] TE[address] GR[address]DERMAT [place], [place] [address] (Wo rk) documented as of this encounter Visit Diagnoses Diagnosis History of melanoma Personal history of malignant melanoma o f skin Seborrheic keratosis Other seborrheic keratosis [place] (actinic keratosis) Actinic keratosis Multiple nevi Benign neoplasm of skin, site unspecifie d Scar Scar condition and fibrosis of skin documented in this encounter Care Teams Estate Administrator Relationship Specialty Start Date End Date Lovely Vicente MD PCP - General 04/16/[address] [place] [address] documented as of this encounter
--- OUTSIDE RECORDS SUMMARY | 2022-03-16 08:24 | XMS_ITS | Encounter Summary ---
:1945 Author Organization [facility] [place] [address] Care Team Providers Name Role Phone Lovely Vicente MD Primary Care Provider Encounter Details Date Type Department Care Team Description 09/03/2016 Laboratory Appointment Lab [place] [facility] [place] [id number] Social History Tobacco Use Types Packs/Day Years [...] MD [facility] [address] [place], [place] [address] (Wo rk) 05/28/2022 Appointment Cardiology Zulma Dolan MD [facility] [address] [place] [address] (Wo rk) 05/28/2022 Laboratory Appointment Lab 05/28/2022 Office Visit Cardiology Zulma Dolan MD [facility] [place] [address] Liz Poole PA [facility] [place] [address] 06/10/2022 Office Visit Dermatology Laura Scherer MD [facility] ER DR TEJA GR-[address]MAT [place], [place] [address] (Wo rk) documented as of [...] EST) P athologist Signature Thyroglobulin <0.4 <=54.9 [facility] ng/mL [facility] Comment: Interpret with caution. Tg [...] BR et al. J Clin Endo Metab 1999;84:2493-1825). Assay performed using the Watkins Hirete T g immunometric assay. (lowest detection limit [...] Address City/State/ZIP Code Phon e Number [address] TSH (09/03/2016 11:07 AM EST) P athologist Signature TSH 3.01 0.27 - 4.20 [facility] mcIU/mL [facility] Specimen Anatomical Collection Method Collection Time Receive d Time (Source) Location / / Volume Laterality Blood specimen 09/03/2016 11:07 7 (specimen) AM EST 11:22 AM EST Resulting Agency Comment Spec In Lab Luz Prescott MD CHEMISTRY ORDERABLES Performing Organization Address City/[facility]/ZIP [place] [address] documented in this encounter Visit Diagnoses Diagnosis Hx of papillary thyroid carcinoma Personal history of malignant neoplasm o f thyroid documented in this encounter Care Teams Policy Service Coordinator Relationship Specialty Start Date End Date Lovely Vicente MD PCP - General 04/16/[address] [place] [address] [address] [place] [address] documented as of this encounter
--- OUTSIDE RECORDS SUMMARY | 2022-03-16 08:24 | XMS_ITS | Encounter Summary ---
:1945 Author Organization [facility] [place] [address] Care Team Providers Name Role Phone Lovely Vicente MD Primary Care Provider Reason for Visit Reason Onset Date Comments Medication Refill 06/19/2016 Encounter Details Date Type Department Care Team Description 06/19/2016 Refill Endocrinology at [facility] Luz Stallings MD [facility] [place] [address] ENDOCRINOLOGY DEPT [phone] [place], [place] [address] (Wo lissa) Social History Tobacco [...] Nobles MD [facility] [address] [place] [address] (Wo rk) 05/28/2022 Appointment Cardiology Zulma Dolan MD [facility] [place] [address] [place] [address] (Wo rk) 05/28/2022 Laboratory Appointment Lab 05/28/2022 Office Visit Cardiology Zulma Dolan MD [facility] [place] [address] Liz Poole PA [facility] [place] [address] 06/10/2022 Office Visit Dermatology Laura Scherer MD [facility] DR TEJA [address] [place], [place] [address] (Wo rk) documented as of this encounter Visit Diagnoses Not on filedocumented in this encounter Care Teams Talk Show Host Relationship Specialty Start Date End Date Lovely Vicente MD PCP - General 04/16/[address] [place] [address] documented as of this encounter
--- OUTSIDE RECORDS SUMMARY | 2022-03-16 08:24 | XMS_ITS | Encounter Summary ---
:1945 [place] [address] Care Team Providers Name Role Phone Lovely Vicente MD Primary Care Provider Reason for Visit Auth/Cert Specialty Diagnoses / Procedures Referred By Contact Refer red To Contact Diagnoses STEMI (ST elevation myocardial infarction) NSTEMI STEMI Procedures CARDIAC CATHETERIZATION NAYE IPI Referral ID Status Reason Start Date Expiration Date Visits Requ ested Visits Authorized [id number] 1 1 Encounter Details Date Type Department Care Team Description 07/05/2017 Surgery Oral Surgeon Jet Guan, CARDIAC CATHETERIZATION [facility] [place] [address] CARDIOLOGY DEPT. [phone] [place], [place] [address] (Wo rk) Social History Tobacco [...] this encounter Discharge Summaries Martha Teague S, UTILITY MECHANIC SUPERVISOR - 07/14/2017 9:38 AM EST Inpatient - [...] , @ 1:20p Patient to follow-up with Reading Specialist/heart failure team in one week. An appointment will be made for you. You may call [phone] Patient to follow-up with Cardiac Surgery, Dr. Yuan Webber, in ~ 4 weeks with CXR, EKG. Inpatient Provider Contact Information: [facility] Section of Cardiac Surgery [facility] [address] FAX [phone] Discharge Diagnoses (Hospital Problems) Primary Diagnoses: CAD [...] by Manny Mcknight MD at [facility] OR ??? PRO CABG, ARTERIAL, SINGLE N/A 07/07/2017 @CABG, USING ARTERIAL GRAFT;SINGLE ARTERIAL GRAFT (WRVU 33.75) performed by Yuan Webber MD at [facility] OR ??? PRO CABG, ARTERY-VEIN, TWO N/A 07/07/2017 @CABG, TWO VENOUS GRAFTS & ARTERIAL GRAFT (WRVU 7.93) performed by Yuan Webber MD at [facility] OR ??? PRO COLONOSCOPY, REMV LESN, SNARE 01/16/2014 COLONOSCOPY, POLYPECTOMY, REMOVAL LESION BY SNARE performed by Nohemi Jaimes MD at [facility] ENDOSCOPY ??? PRO ENDOSCOPY W/VIDEO-ASST VEIN HARVEST, CABG Right 07/07/2017 ENDOSCOPIC HARVEST VEIN(S) FOR CABG (WRVU 0.31) performed by Yuan Webber MD at [facility] OR ??? PRO THYROIDECTOMY 03/28/2013 THYROIDECTOMY, TOTAL OR COMPLETE performed by Manny Mcknight MD at [facility] OR Prior To Admission Medications Prescriptions Prior to Admission Medication Sig Dispense Refill Last Dose ??? levothyroxine (SYNTHROID) 175 mcg Tablet Take 1 tablet by mouth daily. 90 tablet 3 07/05/2017 [id number] ??? ascorbic acid, vitamin C, (VITAMIN C) [...] Hospital Course: Gregory Hoang was admitted to [facility] on 07/05/2017 via the Cardiology Service. 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 An IABP [...] not take or discontinue any prescription or bumu-lyh-whprimq medications without asking your doctor or pharmacist [...] day to have your insulin doses adjusted. [facility] Endocrine clinic office Discharge Instructions: Call your doctor if: You have a fever of greater than 101 degrees, shaking chills, if you develop redness or drainage from your incision sites, or if you have questions. Please call your surgeon's office if you have any discharge or drainage from your chest incision. Your surgeon, Dr. Yuan Webber and/or the Cardiac Surgery Physician Projection Camera Operator Team may be reached at . [...] Dr. Yuan Webber. You may use a [place] Track or treadmill but avoid any pulling [...] friends, go to a movie, go to gnosticist, etc. Heavy activities: No hunting, skiing, jogging, snow shoveling, snowmobiling, lawn mowing, swimming, golf or tennis until after your return appointment with the surgeon. Do not ride motorcycles, [employer] tractors or horses. Avoid the use of [...] should resume a low fat, low cholesterol, [place] Heart [employer] Diet/Diabetic diet. Driving: No driving [...] , @ 1:20p Patient to follow-up with Reading Specialist/heart failure team in one week. Appointment will be made for you. You may call [phone] Patient to follow-up with Cardiac Surgery, Dr. Yuan Webber, in ~ 4 weeks with CXR, EKG. Cardiac Rehabilitation: Gregory Hoang was seen today regarding participation in the outpatient Phase 2 Cardiac Rehabilitation at [facility]. The patient agrees to a referral to this program. The referral will be sent at discharge and the patient should be contacted by the Program within 1- 2 weeks from discharge. ?? Future Appointments and Orders Future Appointments Provider Department Dept Phone 09/07/2017 3:00 PM LAB, THREE L Lab 3L [facility] [phone] 09/07/2017 4:00 PM Luz Prescott MD Endocrinology at [place] [phone] Future Orders Complete By Expires EKG 12 Lead [EKG1 Custom] 08/14/2017 02/13/2018 Process Instructions: Scheduling Instructions: Questions: Which DH location will this be performed?: [place] Is a rhythm strip needed?: No If EKG Reason is Pre-op Evaluation, indicate diagnosis for surgery.: XR Chest PA & Lateral (Generic) [[id number] Custom] 08/14/2017 02/13/2018 Process Instructions: Scheduling Instructions: Questions: Where will study be performed?: [place] [facility] Portable exam?: Reason for exam and clinical history: CABG x 3 Other pertinent information: Stat read required?: Date of injury if applicable: Requested Time: Referral to Cardiac Rehab [EXT039 Custom] As directed Process Instructions: If no progress note charted, please enter Clinical details in comments. Scheduling Instructions: Questions: My question or request is: s/p CABG. Cardiac rehab at [facility] Referral to Home Health - at DISCHARGE [FST7678 CPT(R)] As directed Process Instructions: Scheduling Instructions: Comments: DOCUMENTATION FOR VNA SERVICES (INCLUDING THOSE PATIENTS WITH MEDICARE COVERAGE REQUIRING HOME VNA SERVICES AND/OR HOSPICE SERVICES) PATIENT'S LOCATION: Gregory Hoang [address] [place] [address] [place] [address] (home) Telephone Information: Metal Tube Cutter's Name: self In discussion with the attending physician, it is certified that this patient is under their care and that they, or a Nurse Practitioner, or Physician Projection Camera Operator who is working directly with them, [...] M[facility] ([facility] [place] [employer]-is in [place] PHONE: [phone] FAX: [phone] RN orders: Cardiopulmonary assessment, incisional assessment, assess vital signs, assessment of rehab progress, medication management and effectiveness, home safety evaluation. Please draw INR if indicated and send result to:Dr Vicente [phone] PT ORDERS: Continue rehab for endurance, gait stability and strength with mobility and transfers. Home safety evaluation. Home exercise program if appropriate. Start of Care Date:24-48 hours after discharge SPECIAL INSTRUCTIONS: For any follow up questions, needs, or issues please call the Cardiac Surgery Office at [phone] FOR MEDICARE ONLY: (please delete this section [...] [facility] Section of Cardiac Surgery [facility] [address] FAX [phone] Date: 07/14/2017 CC: MD Ivania Cr Betsy, PA [address] [place] [phone] documented in this encounter Discharge Instructions Discharge [...] day to have your insulin doses adjusted. [facility] Endocrine clinic office Patient InstructionsStMartha mcdonald APRN [...] not take or discontinue any prescription or llnq-iqq-sxlyoxv medications without asking your doctor or pharmacist [...] day to have your insulin doses adjusted. [facility] Endocrine clinic office ? Discharge Instructions: ?? Call your doctor if: You have a fever of greater than 101 degrees, shaking chills, if you develop redness or drainage from your incision sites, or if you have questions. Please call your surgeon's office if you have any discharge or drainage from your chest incision. Your surgeon, Dr. Yuan Webber and/or the Cardiac Surgery Physician Projection Camera Operator Team may be reached at . [...] Dr. Yuan Webber. You may use a [place] Track or treadmill but avoid any pulling [...] friends, go to a movie, go to gnosticist, etc. ?? Heavy activities: No hunting, skiing, jogging, snow shoveling, snowmobiling, lawn mowing, swimming, golf or tennis until after your return appointment with the surgeon. Do not ride motorcycles, [employer]'s tractors or horses. Avoid the use of [...] should resume a low fat, low cholesterol, [place] Heart [employer] Diet/Diabetic diet. ?? Driving: No [...] @ 1:20p ?? Patient to follow-up with Reading Specialist/heart failure team in one week. An appointment has been made for you, you can call [phone] ?? Patient to follow-up with Cardiac Surgery, Dr. Yuan Webber, in ~ 4 weeks with CXR, EKG. ? Cardiac Rehabilitation: Gregory Hoang??was seen today regarding participation in the outpatient Phase 2 Cardiac Rehabilitation at [facility]. ?? The patient agrees to a referral to this program.? The referral will be sent at discharge and the patient should be contacted by the Program within 1- 2 weeks from discharge. ? Future Appointments and Orders Future Appointments Provider Department Dept Phone ?? 09/07/2017 3:00 PM LAB, THREE L Lab 3L [facility] [phone] ?? 09/07/2017 4:00 PM Luz Prescott MD Endocrinology at [place] [phone] Future Orders Complete By Expires ?? EKG 12 Lead [EKG1 Custom] 08/14/2017 02/13/2018 ?? Process Instructions: ? Scheduling Instructions: ? Questions: ? Which location will this be performed?: [place] ?? Is a rhythm strip needed?: No ?? If EKG Reason is Pre-op Evaluation, indicate diagnosis for surgery.: ?? XR Chest PA & Lateral (Generic) [[id number] Custom] 08/14/2017 02/13/2018 ?? Process Instructions: ? Scheduling Instructions: ? Questions: ? Where will study be performed?: [place] [facility] ?? Portable exam?: ?? Reason for exam and clinical history: CABG x 3 ?? Other pertinent information: ?? Stat read required?: ?? Date of injury if applicable: ?? Requested Time: ?? Referral to Cardiac Rehab [RPV822 Custom] As directed ? Process Instructions: ?? If no progress note charted, please enter Clinical details in comments. ?? Scheduling Instructions: ? Questions: ? My question or request is: s/p CABG. Cardiac rehab at [facility] ? Arrangements for VNA/home care: As [...] RN - 07/14/2017 2:34 PM EST The patient/account maintenance representative has been provided a list of Home Health Agencies/DME vendors which serve their preferred geographic area. A letter describing our affiliations was reviewed with them and theywere educated about their right to choose where referrals are placed. Patient requests referral to [facility] [employer]. PHONE: [phone] FAX: [phone] Expected date of discharge: 07/14 Referral routed to the Dinkey Dispatcher for matching with agency/vendor and to provide [...] day to have your insulin doses adjusted. [facility] Endocrine clinic office Kathie Carrera APRN [facility] Endocrinology Diabetes Management Pager [phone] minutes of this 35 minute visit was spent with the patient in counseling on diabetes and treatment plan, reviewing all glucose and insulin data as well as relevant laboratory results with the patient, and coordination of care on the inpatient unit including nursing and primary team. Zulma Andres RN - 07/14/2017 10:30 AM EST The patient/account maintenance representative has been provided a list of Home Health Agencies/DME vendors which serve their preferred geographic area. A letter describing our affiliations was reviewed with them and theywere educated about their right to choose where referrals are placed. Patient requests referral to : Yasmani Munguia ([facility] [place] [employer]-is in [place]) PHONE: [phone] FAX: [phone]. Expected date of discharge: 07/14/17 Referral routed to the Dinkey Dispatcher for matching with agency/vendor and to provide [...] hours. If BG remains greater than 240, hunsgz73 units (no more than three times) &??call [...] Will continue to follow Katerin Azul APRN [facility] Endocrinology Diabetes Management Pager [phone] minutes of this 25 minute visit [...] of infiltration/extravasation Discussed plan of care with SOFTWARE CLERK and RN. Elevate exrtemity and apply intermittent Warm compresses. Name of MD contacted Dr. Shaw Brown 07/13/2017 @ 0655 Name of RN contacted Ale Rangel RN Name of Pharmacist if consulted NA Name of Plastics MD ( if consulted) NA (Mandatory photo for infiltrations/ extravasations scoring a stage 2 or greater, but recommended forstage 1)( include measuring tape and identifier in the photo) FOUNDATION RELATIONS DIRECTOR CARING FOR THIS PATIENT WILL CONTINUE TO [...] measuring tape and identifier in the photo) FOUNDATION RELATIONS DIRECTOR CARING FOR THIS PATIENT WILL CONTINUE TO [...] AM EST Cardiac Surgery Progress Note: ID: [id number] 72 year old male POD#6 s/p CABGx3 [...] discharge. ?? I have met with the patient/account maintenance representative to discuss discharge planning needs. I have provided the [facility], Office of Care Management letter from the Patient Financial Services Specialist pertaining to rehab referrals. I have also provided a letter describing our affiliations within the [facility] and educated them about their right to choose where referrals are placed. ?? I reviewed the different levels of rehab including SNF, swing, acute and LTAC with the patient/account maintenance representative. ?? The patient/account maintenance representative has been provided a list of facilities within their preferred geographic area. ?? I have requested that the patient/account maintenance representative provide at least three choices for referral. ?? The patient/account maintenance representative have requested referrals to: ?? 1. . ?? 2. [facility] ?? 3. More to be entered ?? Expected date of discharge: 07/14 Note routed to Dinkey Dispatcher who will communicate referrals to facilities and [...] hours. If BG remains greater than 240, enpsqt57 units (no more than three times) & [...] hours. If BG remains greater than 240, izvtro64 units (no more than three times) & call for new basal insulin orders. ??If less than 240 after two hours, give no insulin and resume prior schedule. Will continue to follow Katerin Azul APRN [facility] Endocrinology Diabetes Management Pager [phone] 20 minutes of this 35 minute visit was spent with the patient in counseling on diabetes and treatment plan, reviewing all glucose and insulin data as well as relevant laboratory results with the patient, and coordination of care on the inpatient unit including nursing and primary team. Maakyla Stevenson APRN - 07/12/2017 9:52 AM EST Cardiac Surgery Progress Note: ID: [id number] 72 year old male POD#5 s/p CABGx3 [...] 07/11/2017 7:18 PM EST Patient arrived from [facility]. VSS. MSI dressing pulled off with [...] hours. If BG remains greater than 240, ylgqzz65 units (no more than three times) & [...] AM EST Cardiac Surgery Progress Note: ID: [id number] 72 year old male POD#4 s/p CABGx3 [...] hours. If BG remains greater than 240, odbokf56 units (no more than three times) & [...] AM EST Cardiac Surgery Progress Note: ID: [id number] 72 year old male POD#3 s/p CABGx3 [...] Gas) No results found for: PHART, PO2ART, OEW4DAM Assessment/Plan: 72 year old male POD#3 s/p [...] Mami Thao - 07/09/2017 6:29 PM EST Crab Fisherman Encounter Note Patient Name: Gregory Hoang : [id number] MR#: [id number] Admit Date: 07/05/2017 4:20 PM Hospital Day 4 days Narrative: Patient was sitting in chair, hugging heart pillow, opened his eyes, nodding to come into room Assessment: Patient was sleepy. Intervention and Outcome: Introduced power engineer services and patient reached his hand out in appreciation. Follow-up: Crab Fisherman remains available for support. Time in Direct [...] AM EST Report given to medical staff credentialing coordinator to cover care Maddison Cee PA - 07/09/2017 9:00 AM EST Cardiac Surgery Progress Note: ID: [id number] 72 year old male POD#2 s/p CABGx3 [...] Attending Surgeon on rounds. Signed: STEPHANIE Iqbal [facility] Section of Cardiac Surgery Date: 07/09/2017 [...] when IABP d/c'ed. Gretchen Carolina, PT Pager [phone] Maddison Cee PA - 07/08/2017 11:27 AM EST Cardiac Surgery Progress Note: ID: [id number] 72 year old male POD#1 s/p CABGx3 [...] Attending Surgeon on rounds. Signed: STEPHANIE Iqbal [facility] Section of Cardiac Surgery Date: 07/08/2017 [...] in place in R femoral. No hematoma. AIR TANK ASSEMBLER- Intact Psych- Anxious Skin- Dry, no peripheral [...] intact. IABP in place in R femoral. AIR TANK ASSEMBLER- Intact Psych- Anxious Skin- Dry, no peripheral [...] note for details. DAPHNE SHAHID MD Pager [phone] Jet Mckenna MD - 07/05/2017 6:48 PM EST Preliminary Cardiac Catheterization Procedure Note: Procedure(s) performed: Left heart cath, IABP insertion Access: Right SPECIAL CERTIFICATE DICTATOR-->8fr IABP A time-out was conducted prior to [...] Heparin gtt maintained. Pt transferred to general labor forklift operator. documented in this encounter H&P Notes Daphne Shahid MD - 07/05/2017 6:08 PM EST CARDIOLOGY HISTORY & PHYSICAL EXAM Date of Admission: 07/05/2017 ( Hospital Day 0 days ) Responsible Attending: Daphne Shahid MD PCP: Lovely Vicente MD PCP#: [phone] Patient Active Problem List Diagnosis Code ??? [...] load with heparin drip and transferred to [facility]. While there, continued sob, question of chest pain. Stat TTE showing WMA diffusely and EF around 20%. No significant valvular disease. Taken to the general labor forklift operator urgently for ongoing STEMI. [facility] Labs: INR 1.0 WBC 5.88 Hgb [...] I/O - s/p lasix in the general labor forklift operator, redose to aim net neg 1L [...] Medicine, PGY-2 Cardiology S1, Team Pager # [phone] CARDIOLOGY ATTENDING NOTE Patient: Gregory Hoang Date [...] amenable for PCI. DAPHNE SHAHID MD Pager [phone] documented in this encounter Miscellaneous Notes Consult Note - Daphne Shahid MD - 07/14/2017 11:46 AM EST Heart Failure Service Inpatient Consult Note Gregory Hoang Date of : 1945 Age: 72 y.o. Today's date: 07/14/17 PCP: Lovely Vicente MD AUTOMATIC GLOVE FORMER: None Place of Service: [facility] Reason for Consult: Dr. Webber has requested [...] by Manny Mcknight MD at [facility] OR ??? PRO CABG, ARTERIAL, SINGLE N/A 07/07/2017 @CABG, USING ARTERIAL GRAFT;SINGLE ARTERIAL GRAFT (WRVU 33.75) performed by Yuan Webber MD at [facility] OR ??? PRO CABG, ARTERY-VEIN, TWO N/A 07/07/2017 @CABG, TWO VENOUS GRAFTS & ARTERIAL GRAFT (WRVU 7.93) performed by uYan Webber MD at [facility] OR ??? PRO COLONOSCOPY, REMV LESN, SNARE 01/16/2014 COLONOSCOPY, POLYPECTOMY, REMOVAL LESION BY SNARE performed by Nohemi Jaimes MD at [facility] ENDOSCOPY ??? PRO ENDOSCOPY W/VIDEO-ASST VEIN HARVEST, CABG Right 07/07/2017 ENDOSCOPIC HARVEST VEIN(S) FOR CABG (WRVU 0.31) performed by Yuan Webber MD at [facility] OR ??? PRO THYROIDECTOMY 03/28/2013 THYROIDECTOMY, TOTAL OR COMPLETE performed by Manny Mcknight MD at [facility] OR Outpt Meds: Current Outpatient Prescriptions [...] following studies: EKG 07/14/17: NSR 75 bpm, FITTER PLACER anterior infarct, LAD CXR 07/11/17: FINDINGS: Sternotomy wires. The patient has been extubated, left chest tube removed, and [place]uzi catheter removed since the 07/07/2017 study. Atelectasis [...] was discussed with Zehra. Jaden Kelley MD Captain Waiter/Waitress Pager [phone] CARDIOLOGY ATTENDING NOTE Patient: Gregory Hoang Date [...] heart failure clinic. DAPHNE SHAHID MD Pager [phone] Plan of Care - Alden Chavarria PTA [...] home with assist Alden Chavarria PTA Pager: [phone] Inpatient Physical Therapy Problem: Acute Rehab Services [...] sit/sit to supine -- Bed Mobility Goal, [place] Level supervision required -- Bed Mobility Goal, [...] - 3 days -- Gait Training Goal, [place] Level supervision required -- Gait Training Goal, [...] days -- Transfer Training Goal, Activity Type mwd-og-vfdru/nzmyh-fg-yoo;ogu-yv-gnbgm/akzht-ov-pmc;toilet -- Transfer Train Goal, [place] Level supervision required -- Transfer Training Goal, [...] keeping present for 2 days per family. Escrow Officer noted of frustrations, house keeping sent to room. Patient offered showered twice, refused. at bedside, frustrated that shower not complete, informed that patient had refused several times. requesting to see BALL ENDER, paged sent to Martha, will come to bedside (middle of consult). not willing to wait, Martha notified that family had gone home. Encouraged to come for morning rounds a t 8am. Diabetes team at bedside - insulin adjustments made. Call cabello in reach. Continue to monitor. PLAN MOVING FORWARD: Ambulate, dressing changes BID, Please change drsg at 4am per Martha BALL ENDER request. INDIVIDUALIZED FALL PREVENTION INTERVENTIONS: Patient-specific fall [...] levels on the lower side, 60ml of Bryan juice given after a FS of 80. [...] 07/13/17 0502 Interdisciplinary Rounds/Family Conf Participants shoe caser;dietitian/nutrition services;nursing;occupational therapy;patient;pharmacy;physical therapy;physician Plan of Care [...] monitoring required during toileting and ADLs]: RN SOFTWARE CLERK Surveillance [continuous indirect monitoring]: Barrett Monitor [employer]PG [...] Anticipated Discharge Disposition: home with assist Pager: [phone] CLARISSA SEGAL, PT 07/12/2017 Physical Therapy Rehabilitation [...] to sit/sit to supine Bed Mobility Goal, [place] Level supervision required Bed Mobility Goal, Additional Goal adheres to psternal precautions for transfer Goal: Gait Training Goal Stand Alone Therapy Goal Outcome: Ongoing (Interventions Implemented as Appropriate) 07/12/17 1225 Gait Training Goal Gait Training Goal, Date Established 07/12/17 Gait Training Goal, Time to Achieve 2 - 3 days Gait Training Goal, [place] Level supervision required Gait Training Goal, Assist [...] 3 days Transfer Training Goal, Activity Type jtu-qk-beqoo/qxcww-ns-gfx;eci-zv-lzylo/stpcr-cf-jzm;toilet Transfer Train Goal, [place] Level supervision required Transfer Training Goal, Additional Goal adheres to sternal precautions during transfer Consult Note - Octavia Vaughn RN - 07/12/2017 10:50 AM EST [facility] CARDIAC REHABILITATION Gregory Hoang was seen today regarding participation in the outpatient Phase 2 Cardiac Rehabilitation at [facility]. The patient agrees to a referral [...] IV site, amio to other piv and BUSINESS ANALYTICS SPECIALIST at bedside to help assess, IV removed. [...] staff, he stood and marched in place. [employer] weak, wanting to sit back down. Remained [...] Health/Prescription Coverage: Primary Insurance: MEDICARE Secondary Insurance: [place] Prescription Coverage: yes Preferred Pharmacy: [facility] Other: none Primary Care Provider: Lovely Vicente MD [phone] Patient/Caregiver Goals of Treatment:live and get my breath back Potential Needs for Transition of Care: Rehab/SNF: [facility] Home Health: NA DME: TBD Dialysis: na Community Resources: available Transportation: yes Other: none Anticipated Barriers to Discharge/Special Considerations: none Plan: Likely SNF Rehab before home A member of the Care Management team will continue to monitor progress, follow for continuity of care and assist with transition of care planning. ERLIN Weiss Pager: [phone] Consult Note - Katerin Azul RN - [...] potential to d/c gtt and start CF. board layer diabetes care: Medications - Outpatient treatment regimen recommendations pending based on the hospital course. Monitoring - continue BG tid ac & hs Diet - low fat/low carb diet Exercise - weight-bearing exercise 30 min/day, as tolerated Thank you for allowing us to provide care for your patient W/E coverage, Dr. Jeane Tatum, pager [phone] Katerin Azul APRN Endocrinology Diabetes Management Pager [phone] Plan of Care - Stephanie Godoy, RN [...] Webber MD - 07/07/2017 6:27 PM EST [facility] Operative Note Patient Name: Gregory Hoang : [id number] MR#: [id number] Case Date: 07/07/2017 Surgeon: Surgeon(s) and Role: * Yuan Webber MD - Primary * Michael Drake PA - Physician Projection Camera Operator * Linda Flores PA - Physician Projection Camera Operator Preoperative diagnosis: 3VD Postoperative diagnosis: CAD, [...] Operative Note Patient Name: Gregory Hoang : [id number] MR#: [id number] Case Date: 07/07/2017 Surgeon: Surgeon(s) and Role: * Yuan Webber MD - Primary * Michael Drake PA - Physician Projection Camera Operator * Linda Flores PA - Physician Projection Camera Operator Preoperative diagnosis: 3VD Postoperative diagnosis: CAD, [...] (reference Cardiac: ACS (Acute Coronary Syndrome) (Adult) [facility]). 07/07/17621 Cardiac: ACS (Acute [...] y.o. male with a history of MARIA VICTORAI (on CPAP), DM2, COPD, HTN, [...] Hahn, MS3 [employer] [facility] Cardiology S1 (Pager [phone]) Plan of Care - Emelia Ibarra RN [...] MD at [facility] MAIN OR ??? PRO COLONOSCOPY, REMV LESN, SNARE 01/16/2014 COLONOSCOPY, POLYPECTOMY, REMOVAL LESION BY SNARE performed by Nohemi Jaimes MD at [facility] ENDOSCOPY ??? 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 #Home Meds - continue levothyroxine 175mcg - CPAP at night ?? # Routine - DVT PPx: heparin drip - Diet: Healthy heart diet, NPO at midnight for CABG tomorrow - Code Status: FULL - Dispo: CVCC Katty Hahn, M3 [facility] Cardiology S1 (Pager [phone]) Plan of Care - Stephanie Godoy RN - 07/06/2017 5:00 AM EST Problem: Patient Care Overview Goal: Plan of Care Review 07/06/17 8416 Coping/Psychosocial Plan Of Care Reviewed With patient;family [...] urinal without difficulty. 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 [...] Nobles MD [facility] [address] [place], [place] [address] (Wo rk) 05/28/2022 Appointment Cardiology Zulma Dolan MD [facility] [address] [place], [place] [address] (Wo rk) 05/28/2022 Laboratory Appointment Lab 05/28/2022 Office Visit Cardiology Zulma Dolan MD [facility] [place] [address] Liz Poole PA [facility] [place] [address] 06/10/2022 Office Visit Dermatology Laura Scherer MD [facility] [address] TEJA [place], [place] [address] (Wo rk) Scheduled Orders Name [...] procedure are i n the results section. 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 SCAN 07/15/2017 12:00 Res ults for this [...] Routine 07/08/2017 4:00 Results f or this ([facility]) AM EST procedure are i n the [...] Routine 07/07/2017 5:15 Results f or this ([facility]) AM EST procedure are i n the [...] Routine 07/06/2017 7:40 Results f or this ([facility]) PM EST procedure are i n the [...] Timed 07/06/2017 2:10 Results f or this ([facility]) PM EST procedure are i n the [...] section. TYPE AND SCREEN Routine 07/06/2017 12:00 ([facility]/SHANDA) PM EST APTT STAT 07/06/2017 11:24 Results [...] Routine 07/06/2017 8:10 Results f or this ([facility]) AM EST procedure are i n the [...] Routine 07/06/2017 2:20 Results f or this ([facility]) AM EST procedure are i n the [...] Routine 07/05/2017 8:20 Results f or this ([facility]) PM EST procedure are i n the [...] 2017 EXAMINATION: XR CHEST PA AND LATERAL (SaggeIC) CLINICAL HISTORY: CABG x 3 TECHNIQUE: PA [...] Teague APRN IMG DX ORDERABLES SCAN DOC: 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 (07/15/2017 12:00 AM EST) Narrative 07/15/2017 12:00 [...] 65 - 199 [facility] mg/dL [facility] LABORATORY [...] Address City/State/[place] [address] POCT Glucose (07/14/2017 7:52 AM EST) athologist Signature POC Glucose 126 65 - 199 [facility] mg/dL [facility] Comment: Supplemental ranges: <140 mg/dL before meals <180 mg/dL all other times of the day Specimen Anatomical Collection Method Collection Time Receive d Time (Source) Location / / Volume Laterality Blood specimen 07/14/2017 7:52 AM 017 7:52 (specimen) EST AM EST Yuan Webber MD POINT OF CARE TEST ORDERABLE S Performing Organization Address City/[facility]/[place] [address] (ABNORMAL) Prothrombin Time (07/14/2017 [...] Wilson APRN HEMATOLOGY ORDERABLES Performing Organization Address City/[facility]/[place] [address] Potassium (07/14/2017 4:46 AM EST) athologist Signature Potassium 4.3 3.5 - 5.0 [facility] mmol/L [facility] [...] Address City/State/ZIP Code Phon e Number [address] POCT Glucose (07/14/2017 4:34 AM EST) athologist Signature POC Glucose 115 65 - 199 [place] mg/dL [facility] LAB[facility]ORY [...] Address City/State/ZIP Code Phon e Number [address] POCT Glucose (07/13/2017 11:33 PM EST) athologist Signature POC Glucose 132 65 - 199 [facility] SU mg/dL [facility] LABORATORY [...] Address City/State/ZIP Code Phon e Number [address] POCT Glucose (07/13/2017 9:25 PM EST) athologist Signature POC Glucose 121 65 - 199 [facility] SU mg/dL [facility] LABORATORY [...] Organization Address City/State/[place] [address] POCT Glucose (07/13/2017 4:55 PM EST) athologist Signature POC Glucose 79 65 - 199 [place] mg/dL [facility] LABORATORY [...] Organization Address City/State/[place] [address] POCT Glucose (07/13/2017 11:16 AM EST) athologist Signature POC Glucose 163 65 - 199 [place] mg/dL [facility] LAB[facility]ORY [...] Organization Address City/State/[place] [address] POCT Glucose (07/13/2017 8:07 AM EST) athologist Signature POC Glucose 96 65 - 199 [facility] SU mg/dL [facility] LABORATORY [...] Organization Address City/State/[place] [address] (ABNORMAL) Prothrombin Time (07/13/2017 [...] Organization Address City/State/[place] [address] (ABNORMAL) Basic Metabolic Panel (non-fasting) (07/13/2017 4:26 AM EST) P athologist Signature Glucose Lvl 95 65 - 199 [facility] mg/dL [facility] LAB[facility]ATORY [...] 15 mmol/L [facility] Calcium 7.7 (L) 8.5 - 10.5 mg/dL [facility] Estimated GFR 60 >=60 [facility] Comment: The reported eGFR should be multiplied b y 1.2 for patients. The MDRD is not an appropriate measure o f renal function for patients with body mass extremes or in patients with acute kidney failure. [email or web address] [email or web address] Specimen Anatomical Collection Method Collection Time Receive d Time (Source) Location / / Volume Laterality Blood specimen 07/13/2017 4:26 AM 017 4:46 (specimen) EST AM EST Resulting Agency Comment Spec In Lab Makayla Wilson APRN CHEMISTRY ORDERABLES Performing Organization Address City/[facility] Code Phon e Number [address] POCT Glucose (07/13/2017 3:52 AM EST) athologist Signature POC Glucose 93 65 - 199 [facility] mg/dL [facility] Comment: Supplemental ranges: <140 mg/dL before meals <180 mg/dL all other times of the day Specimen Anatomical Collection Method Collection Time Receive d Time (Source) Location / / Volume Laterality Blood specimen 07/13/2017 3:52 AM 017 3:52 (specimen) EST AM EST Yuan Webber MD POINT OF CARE TEST ORDERABLE S Performing Organization Address City/[facility]/ZIP Code Phon e Number [address] POCT Glucose (07/13/2017 12:21 AM EST) athologist Signature POC Glucose 80 65 - 199 [facility] mg/dL [facility] Comment: [...] Organization Address City/State/[place] [address] POCT Glucose (07/12/2017 8:22 PM EST) athologist Signature POC Glucose 119 65 - 199 [place] mg/dL [facility] LABORATORY [...] Address City/State/ZIP Code Phon e Number [address] POCT Glucose (07/12/2017 4:02 PM EST) athologist Signature POC Glucose 114 65 - 199 [place] mg/dL [facility] LABORATORY [...] Address City/State/ZIP Code Phon e Number [address] POCT Glucose (07/12/2017 11:28 AM EST) athologist Signature POC Glucose 164 65 - 199 [place] mg/dL [facility] Comment: Supplemental ranges: <140 mg/dL before meals <180 mg/dL all other times of the day Specimen Anatomical Collection Method Collection Time Receive d Time (Source) Location / / Volume Laterality Blood specimen 07/12/2017 11:28 7 (specimen) AM EST 11:28 AM EST Yuan Webber MD POINT OF CARE TEST ORDERABLE S Performing Organization Address City/[facility]/[place] [address] POCT Glucose (07/12/2017 7:34 AM EST) P athologist Signature POC Glucose 109 65 - 199 [facility] mg[facility]dL [facility] Comment: [...] Organization Address City/State/[place] [address] (ABNORMAL) Basic Metabolic Panel (non-fasting) (07/12/2017 4:11 AM EST) P athologist Signature Glucose Lvl 92 65 - 199 [facility] mg/dL [facility] Comment: Diabetes: >=200 mg/dL plus symp toms BUN 31 (H) 10 - 20 mg/dL [facility] Creatinine 1.23 0.80 - 1.50 [...] HOSPITAL LABORATORY Estimated GFR 58 (L) >=60 [facility] Comment: The reported eGFR should be multiplied b y 1.2 for patients. The MDRD is not an appropriate measure o f renal function for patients with body mass extremes or in patients with acute kidney failure. [email or web address] [email or web address] Specimen Anatomical Collection Method Collection Time Receive d Time (Source) Location / / Volume Laterality Blood specimen 07/12/2017 4:11 AM 017 8:57 (specimen) EST AM EST Resulting Agency Comment Spec [facility] CHEMISTRY ORDERABLES Performing Organization Address [facility] [place] [address] (ABNORMAL) Prothrombin Time (07/12/2017 [...] [place] STACIE HEMATOLOGY ORDERABLES Performing Organization Address City/[facility]/ZIP Code Phon [place] [address] Potassium (07/12/2017 4:11 AM EST) athologist Signature Potassium 3.8 3.5 - 5.0 [facility] mmol/L [facility] LAB[facility]ORY [...] Address City/State/ZIP Code Phon e Number [address] POCT Glucose (07/12/2017 4:10 AM EST) athologist Signature POC Glucose 90 65 - 199 [facility] mg/dL [facility] Comment: [...] Organization Address City/State/[place] [address] POCT Glucose (07/11/2017 11:57 PM EST) athologist Signature POC Glucose 98 65 - 199 [facility] mg/dL [facility] Comment: [...] Address City/State/ZIP Code Phon e Number [address] POCT Glucose (07/11/2017 8:32 PM EST) P athologist Signature POC Glucose 146 65 - 199 [place] mg/dL [facility] LABORATORY [...] Organization Address City/State/[place] [address] XR Chest PA & [...] e xtubated, left chest tube removed, and [place]-Suzi catheter removed since the study. Atelectasis at [...] e xtubated, left chest tube removed, and [place]-Suzi catheter removed since the study. Atelectasis at [...] (H) 65 - 199 [place] mg/dL [facility] Comment: Supplemental ranges: <140 mg/dL before meals <180 mg/dL all other times of the day Specimen Anatomical Collection Method Collection Time Receive d Time (Source) Location / / Volume Laterality Blood specimen 07/11/2017 4:05 PM 017 4:05 (specimen) EST PM EST Yuan Webber MD POINT OF CARE TEST ORDERABLE S Performing Organization Address City/[facility]/ZIP Code Phon e Number [address] POCT Glucose (07/11/2017 11:55 AM EST) athologist Signature POC Glucose 176 65 - 199 [place] mg/dL [facility] Comment: Supplemental ranges: <140 mg/dL before meals <180 mg/dL all other times of the day Specimen Anatomical Collection Method Collection Time Receive d Time (Source) Location / / Volume Laterality Blood specimen 07/11/2017 11:55 7 (specimen) AM EST 11:55 AM EST Yuan Webber MD POINT OF CARE TEST ORDERABLE S Performing Organization Address City/[facility]/[place] [address] POCT Glucose (07/11/2017 7:53 AM EST) athologist Signature POC Glucose 189 65 - 199 [place] mg/dL [facility] Comment: Supplemental ranges: <140 mg/dL before meals <180 mg/dL all other times of the day Specimen Anatomical Collection Method Collection Time Receive d Time (Source) Location / / Volume Laterality Blood specimen 07/11/2017 7:53 AM 017 7:53 (specimen) EST AM EST Yuan Webber MD POINT OF CARE TEST ORDERABLE S Performing Organization Address City/[facility]/[place] [address] POCT Glucose (07/11/2017 4:22 AM EST) athologist Signature POC Glucose 151 65 - 199 [facility] mg/dL [facility] Comment: Supplemental ranges: <140 mg/dL before meals <180 mg/dL all other times of the day Specimen Anatomical Collection Method Collection Time Receive d Time (Source) Location / / Volume Laterality Blood specimen 07/11/2017 4:22 AM 017 4:22 (specimen) EST AM EST Yuan Webber MD POINT OF CARE TEST ORDERABLE S Performing Organization Address City/[facility]/[place] [address] Potassium (07/11/2017 2:20 AM EST) athologist Signature Potassium 4.5 3.5 - 5.0 [facility] mmol/L [facility] LABORATORY [...] Webber MD CHEMISTRY ORDERABLES Performing Organization Address City/[facility]/ZIP Code Phon e Number [address] POCT Glucose (07/11/2017 12:17 AM EST) athologist Signature POC Glucose 162 65 - 199 [place] mg/dL [facility] LABORATORY [...] Address City/State/ZIP Code Phon e Number [address] POCT Glucose (07/10/2017 8:47 PM EST) athologist Signature POC Glucose 191 65 - 199 [place] mg/dL [facility] LABORATORY [...] Address City/State/ZIP Code Phon e Number [address] POCT Glucose (07/10/2017 4:06 PM EST) athologist Signature POC Glucose 131 65 - 199 [place] mg/dL [facility] LABORATORY [...] Address City/State/ZIP Code Phon e Number [address] POCT Glucose (07/10/2017 3:08 PM EST) athologist Signature POC Glucose 151 65 - 199 [place] mg/dL [facility] LABORATORY [...] Address City/State/ZIP Code Phon e Number [address] POCT Glucose (07/10/2017 2:25 PM EST) athologist Signature POC Glucose 146 65 - 199 [place] mg/dL [facility] LABORATORY [...] Address City/State/ZIP Code Phon e Number [address] POCT Glucose (07/10/2017 1:23 PM EST) athologist Signature POC Glucose 166 65 - 199 [place] mg/dL [facility] LABORATORY [...] Address City/State/ZIP Code Phon e Number [address] POCT Glucose (07/10/2017 11:52 AM EST) athologist Signature POC Glucose 157 65 - 199 [place] mg/dL [facility] LABORATORY [...] Organization Address City/State/[place] [address] POCT Glucose (07/10/2017 11:01 AM EST) P athologist Signature POC Glucose 158 65 - 199 [place] mg/dL [facility] LABORATORY [...] Address City/State/ZIP Code Phon e Number [address] POCT Glucose (07/10/2017 9:54 AM EST) athologist Signature POC Glucose 160 65 - 199 [place] mg/dL [facility] LABORATORY [...] Address City/State/ZIP Code Phon e Number [address] POCT Glucose (07/10/2017 8:58 AM EST) athologist Signature POC Glucose 183 65 - 199 [place] mg/dL [facility] LABORATORY [...] Address City/State/ZIP Code Phon e Number [address] POCT Glucose (07/10/2017 8:01 AM EST) athologist Signature POC Glucose 173 65 - 199 [place] mg/dL [facility] LABORATORY [...] Address City/State/ZIP Code Phon e Number [address] POCT Glucose (07/10/2017 7:05 AM EST) athologist Signature POC Glucose 166 65 - 199 [place] mg/dL [facility] LABORATORY [...] Organization Address City/State/[place] [address] POCT Glucose (07/10/2017 6:00 AM EST) athologist Signature POC Glucose 162 65 - 199 [place] mg/dL [facility] LABORATORY [...] Address City/State/ZIP Code Phon e Number [facility] [place] [address] (ABNORMAL) Differential, Automated (07/10/2017 4:28 AM EST) [facility] gist Method Time Signature Neutrophils % 87.9 % [facility] LABORATORY Neutr Abs (ANC) 10.70 (H) 1.70 - [facility] 6.10 [facility] x10(3)/[facility] LABORATORY Lymphocytes % 3.9 % [facility] LABORATORY Lymphocytes Abs 0.5 (L) 0.9 - 3.2 [facility] x10(3)/[facility] LABORATORY Monocytes % 7.0 % [facility] LABORATORY Monocyte Abs 0.8 0.3 - 0.9 [facility] x10(3)/[facility] LABORATORY Eosinophils % 0.3 % [facility] LABOR[facility]ORY Eosinophils Abs 0.0 0.0 - 0.4 [facility] x10(3)/[facility] LABORATORY Basophils % 0.2 % [facility] LABORATORY Basophils Abs 0.0 0.0 - 0.1 [facility] x10(3)/[facility] LABORATORY Immature Gran % 0.70 % [place] [...] Address City/State/ZIP Code Phon e Number [address] (ABNORMAL) Hemogram (07/10/2017 4:28 AM EST) Analysis Performed At Patho logist Time Signature WBC 12.2 (H) 4.0 - 9.5 [facility] LABORATORY RBC 3.31 (L) 4.58 - [place] 5.54 [facility] x10(6)/[facility] LABORATORY Hemoglobin 9.8 (L) 13.7 - [facility] 16.5 gm/dL [facility] LABORATORY Hematocrit 30.0 (L) 40.5 - [facility] 48.5 % [facility] LAB[facility]ORY MCV 90.6 82.9 - [facility] 93.1 [facility] LABORATORY MCH 29.6 27.5 - [place] 32.1 pg [facility] LABORATORY MCHC 32.7 32.0 - [place] 35.7 gm/dL [facility] LABORATORY Platelets 135 (L) 145 - 357 [facility] x10(3)/[facility] LABORATORY RDWSD 50.8 (H) 36.0 - [facility] 45.0 [facility] LABORATORY RDWCV 15.4 (H) 11.4 - [facility] 13.8 % [facility] LABORATORY MPV 10.0 7.6 - 12.9 [facility] LABORATORY nRBC % Auto 0.0 % [facility] LABORATORY nRBC Abs Auto 0.000 0.000 - [facility] SU 0.000 [facility] x10(3)/[facility] LABORATORY Specimen Anatomical Collection Method Collection Time Receive d Time (Source) Location / / Volume Laterality Blood specimen 07/10/2017 4:28 AM 017 4:36 (specimen) EST AM EST Resulting Agency Comment Spec In Lab Yuan Webber MD HEMATOLOGY ORDERABLES Performing Organization Address City/State/[place] [address] (ABNORMAL) Basic Metabolic Panel (non-fasting) (07/10/2017 4:28 AM EST) athologist Signature Glucose Lvl 178 65 - 199 [facility] mg/dL [facility] LABORATORY [...] 15 mmol/L [facility] LABORATORY Calcium 7.4 (L) 8.5 - 10.5 mg/dL [facility] LABORATORY Estimated GFR 60 >=60 [facility] LABOR[facility]ORY Comment: The reported eGFR should be multiplied b y 1.2 for patients. The MDRD is not an appropriate measure o f renal function for patients with body mass extremes or in patients with acute kidney failure. http://[employer]/DHnkdep [email or web address]/DHMCnkf Specimen Anatomical Collection Method Collection Time Receive d Time (Source) Location / / Volume Laterality Blood specimen 07/10/2017 4:28 AM 017 4:36 (specimen) EST AM EST Resulting Agency Comment Spec In Lab Yuan Webber MD CHEMISTRY ORDERABLES Performing Organization Address City/State/[place] [address] POCT Glucose (07/10/2017 4:26 AM EST) athologist Signature POC Glucose 176 65 - 199 [place] mg/dL [facility] LABORATORY [...] Organization Address City/State/[place] [address] (ABNORMAL) POCT Glucose (07/10/2017 3:06 AM EST) athologist Signature POC Glucose 204 (H) 65 - 199 [place] mg/dL [facility] LABORATORY [...] Organization Address City/State/[place] [address] (ABNORMAL) POCT Glucose (07/10/2017 2:10 AM EST) athologist Signature POC Glucose 203 (H) 65 - 199 [place] mg/dL [facility] LABORATORY [...] Organization Address City/State/[place] [address] POCT Glucose (07/10/2017 1:09 AM EST) athologist Signature POC Glucose 196 65 - 199 [place] mg/dL [facility] LABORATORY [...] Address City/State/ZIP Code Phon e Number 61 [address] POCT Glucose (07/10/2017 12:10 AM EST) athologist Signature POC Glucose 173 65 - 199 [place] ZHAOSU mg/dL [facility] LABORATORY [...] Address City/State/ZIP Code Phon e Number [address] POCT Glucose (07/09/2017 11:01 PM EST) athologist Signature POC Glucose 140 65 - 199 [place]HA[place] mg/dL [facility] LABORATORY [...] Address City/State/ZIP Code Phon e Number [address] POCT Glucose (07/09/2017 10:05 PM EST) athologist Signature POC Glucose 144 65 - 199 [place] mg/dL [facility] LABORATORY [...] Organization Address City/State/[place] [address] POCT Glucose (07/09/2017 9:31 PM EST) athologist Signature POC Glucose 121 65 - 199 [place]HA[place] mg/dL [facility] LABORATORY [...] Address City/State/ZIP Code Phon e Number [address] POCT Glucose (07/09/2017 9:03 PM EST) athologist Signature POC Glucose 98 65 - 199 [place] mg/dL [facility] LABORATORY [...] Address City/State/ZIP Code Phon e Number [address] POCT Glucose (07/09/2017 8:09 PM EST) athologist Signature POC Glucose 117 65 - 199 [place] mg/dL [facility] LABORATORY [...] Organization Address City/State/[place] [address] POCT Glucose (07/09/2017 5:40 PM EST) athologist Signature POC Glucose 155 65 - 199 [place] SU mg/dL [facility] LABORATORY [...] Organization Address City/State/[place] [address] POCT Glucose (07/09/2017 4:24 PM EST) athologist Signature POC Glucose 164 65 - 199 [facility] SU mg/dL [facility] LABORATORY [...] Organization Address City/State/[place] [address] POCT Glucose (07/09/2017 3:19 PM EST) athologist Signature POC Glucose 166 65 - 199 [place] SU mg/dL [facility] LABORATORY [...] Organization Address City/State/[place] [address] POCT Glucose (07/09/2017 2:26 PM EST) athologist Signature POC Glucose 179 65 - 199 [place] SU mg/dL [facility] LABORATORY [...] Organization Address City/State/[place] [address] (ABNORMAL) POCT Glucose (07/09/2017 1:29 PM EST) athologist Signature POC Glucose 210 (H) 65 - 199 [place] SU mg/dL [facility] LABORATORY [...] Address City/State/ZIP Code Phon e Number [address] POCT Glucose (07/09/2017 12:20 PM EST) athologist Signature POC Glucose 172 65 - 199 [place] mg/dL [facility] LABORATORY [...] Address City/State/ZIP Code Phon e Number [address] POCT Glucose (07/09/2017 11:24 AM EST) P athologist Signature POC Glucose 156 65 - 199 [place] SU mg/dL [facility] LABORATORY [...] Address City/State/ZIP Code Phon e Number [address] POCT Glucose (07/09/2017 11:11 AM EST) P athologist Signature POC Glucose 172 65 - 199 [facility] SU mg/dL [facility] LABORATORY [...] Organization Address City/State/[place] [address] POCT Glucose (07/09/2017 10:08 AM EST) P athologist Signature POC Glucose 176 65 - 199 [facility] SU mg/dL [facility] LABORATORY [...] Organization Address City/State/[place] [address] POCT Glucose (07/09/2017 8:02 AM EST) P athologist Signature POC Glucose 178 65 - 199 [facility] mg/dL [facility] LABORATORY [...] Organization Address City/State/[place] [address] (ABNORMAL) BLOOD GAS 2 ARTERIAL (07/09/2017 5:37 AM EST) Analysis Performed At Patho logist Time Signature pH Art 7.36 7.35 - [facility] 7.45 [facility] LABORATORY pCO2 Art 38 35 - 45 [facility] LABORATORY pO2 Art 79 (L) 85 - 104 [facility] LABORATORY HCO3 Art 20.9 20.0 - [facility] 26.0 [facility] mmol/L [facility] LABORATORY BE Art -4.6 (L) -3.0 - 3.0 [facility] mmol/L [facility] LABORATORY Hgb Blood Gas 10.5 (L) 13.7 - [facility] 16.5 gm/dL [facility] LABORATORY O2HB Art 93.8 (L) 94.0 - [facility] 97.0 % [facility] LABORATORY COHB Art 0.3 % [place] [...] Whole Bld 175 65 - 199 mg/dL [place] [...] Webber MD CHEMISTRY ORDERABLES Performing Organization Address City/[facility]/[place] [address] POCT Glucose (07/09/2017 3:27 AM EST) P athologist Signature POC Glucose 192 65 - 199 [facility] mg/dL [facility]OR[facility]ORY Comment: Supplemental ranges: <140 mg/dL before meals <180 mg/dL all other times of the day Specimen Anatomical Collection Method Collection Time Receive d Time (Source) Location / / Volume Laterality Blood specimen 07/09/2017 3:27 AM 017 3:27 (specimen) EST AM EST Yuan Webber MD POINT OF CARE TEST ORDERABLE S Performing Organization Address City/[facility]/[place] [address] (ABNORMAL) Basic Metabolic Panel (non-fasting) (07/09/2017 2:30 AM EST) athologist Signature Glucose Lvl 179 65 - 199 [facility] mg/dL [facility]ORY Comment: Diabetes: >=200 mg/dL plus symp toms BUN 17 10 - 20 mg/dL [facility] LABORATORY Creatinine 1.34 0.80 - 1.50 [...] 15 mmol/L [facility]ORY Calcium 7.1 (L) 8.5 - 10.5 mg/dL [facility] LABORATORY Comment: result rechecked-JLK Estimated GFR 53 (L) >=60 [facility] LABOR[facility]ORY Comment: The reported eGFR should be multiplied b y 1.2 for patients. The MDRD is not an appropriate measure o f renal function for patients with body mass extremes or in patients with acute kidney failure. http://[employer]/DHnkdep http://[employer]/DHMCnkf Specimen Anatomical Collection Method Collection Time Receive d Time (Source) Location / / Volume Laterality Blood specimen Venous Draw / 07/09/2017 2:30 AM 2016 2:42 (specimen) Unknown EST AM EST Resulting Agency Comment Spec In Lab Yuan eWbber MD CHEMISTRY ORDERABLES Performing Organization Address City/State/[place] [address] (ABNORMAL) Potassium (07/09/2017 2:30 AM EST) P athologist Signature Potassium 5.1 (H) 3.5 - 5.0 [place] mmol/L [facility] Comment: [...] Address City/State/[place] [address] (ABNORMAL) Hemogram (07/09/2017 2:30 AM EST) Analysis Performed At Patho logist Time Signature WBC 12.5 (H) 4.0 - 9.5 [place] SU x10(3)/[facility] LABORATORY RBC 3.38 (L) 4.58 - [place] SU 5.54 [facility] x10(6)/[facility] LABORATORY Hemoglobin 10.1 (L) 13.7 - [place] 16.5 gm/dL [facility] Hematocrit 30.3 (L) 40.5 - [place] 48.5 % [facility]ORY MCV 89.6 82.9 - [place] 93.1 [facility] LABORATORY MCH 29.9 27.5 - [place] SU 32.1 pg [facility] LABORATORY MCHC 33.3 32.0 - [place] 35.7 gm/dL [facility] Platelets 127 (L) 145 - 357 [place] SU x10(3)/[facility] LABORATORY RDWSD 49.3 (H) 36.0 - [place] 45.0 [facility] LABORATORY RDWCV 15.2 (H) 11.4 - [facility] 13.8 % [facility] LABORATORY MPV 9.9 7.6 - 12.9 [place] [facility] LABORATORY nRBC % Auto 0.0 % [facility] LABORATORY nRBC Abs Auto 0.000 0.000 - [place] DAVIS 0.000 [facility] x10(3)/[facility] LABORATORY Specimen Anatomical Collection Method Collection Time Receive d Time (Source) Location / / Volume Laterality Blood specimen 07/09/2017 2:30 AM 017 2:41 (specimen) EST AM EST Resulting Agency Comment Spec In Lab Yuan Webber MD HEMATOLOGY ORDERABLES Performing Organization Address City/State/ZIP Code Phon e Number [address] POCT Glucose (07/09/2017 2:10 AM EST) P athologist Signature POC Glucose 169 65 - 199 [place] SU mg/dL [facility] Comment: Supplemental ranges: <140 mg/dL before meals <180 mg/dL all other times of the day Specimen Anatomical Collection Method Collection Time Receive d Time (Source) Location / / Volume Laterality Blood specimen 07/09/2017 2:10 AM 017 2:10 (specimen) EST AM EST Yuan Webber MD POINT OF CARE TEST ORDERABLE S Performing Organization Address City/[facility]/ZIP Code Phon e Number [address] POCT Glucose (07/09/2017 1:01 AM EST) P athologist Signature POC Glucose 173 65 - 199 [place] mg/dL [facility] LABOR[facility]ORY Comment: Supplemental ranges: <140 mg/dL before meals <180 mg/dL all other times of the day Specimen Anatomical Collection Method Collection Time Receive d Time (Source) Location / / Volume Laterality Blood specimen 07/09/2017 1:01 AM 017 1:01 (specimen) EST AM EST Yuan Webber MD POINT OF CARE TEST ORDERABLE S Performing Organization Address City/[facility]/ZIP Code Phon e Number [address] Blood culture (07/09/2017 12:40 AM EST) [facility] Time Signature Blood Culture No growth [place] DAVIS at 5 days. [facility] LABORATORY Specimen Anatomical Collection Method Collection Time Receive d Time (Source) Location / / Volume Laterality Blood specimen STRUCTURE OF RIGHT 07/09/2017 12:40 3:58 (specimen) UPPER LIMB / AM EST AM EST Unknown Resulting Agency Comment Spec In Lab Yuan Webber MD MICROBIOLOGY - BLOOD ORDERAB LES Performing Organization Address City/State/[place] [address] Blood culture (07/09/2017 12:30 AM EST) Patholo gist Method Time Signature Blood Culture No growth [place] DAVIS at 5 days. [facility] LABOR[facility]ORY Specimen Anatomical Collection Method Collection Time Receive d Time (Source) Location / / Volume Laterality Blood specimen STRUCTURE OF LEFT 07/09/2017 12:30 06/25 3:59 (specimen) UPPER LIMB / AM EST AM EST Unknown Resulting Agency Comment Spec In Lab Yuan Webber MD MICROBIOLOGY - BLOOD ORDERAB LES Performing Organization Address City/[facility]/[place] [address] (ABNORMAL) Urinalysis Microscopic Exam [...] (H) 0 - 2 /LPF [facility] LABORATORY Gran Cast UA 1 (H) <=0 /LPF [facility] LABORATORY Uric Ac Bianca Rare (A) None /HPF [facility] LABORATORY Specimen (Source) Anatomical Collection Method Collection Time Re ceived Time Location / / Volume Laterality Urine specimen 07/09/2017 12:05 7 obtained via AM EST 12:39 AM EST indwelling urinary catheter (specimen) Resulting Agency Comment Spec In Lab Yuan Webber MD URINE ORDERABLES Performing Organization Address City/State/[place] [address] (ABNORMAL) Urinalysis with reflex Culture (07/09/2017 12:05 AM EST) Patholo gist Method Time Signature Glucose UA Negative Negative [facility] mg/dL [facility]ORY Protein UA 30 (A) Negative [facility] mg/dL [facility] Bilirubin UA Negative Negative [facility] mg/dL [facility] LABORATORY [...] CENTER LABORATORY Ketones UA Negative Negative mg/dL [facility] LABOR[facility]ORY Nitrite UA Negative Negative [facility] LABORATORY Leukocytes UA Negative Negative mcL [facility] LABORATORY Appearance UA Hazy (A) Clear [facility] LABORATORY Spec [place] UA 1.025 1.002 - 1.030 [facility] LABORATORY Color UA Yellow Yellow [facility] LABORATORY Culture Reflexed No [facility]OR[facility] Specimen (Source) Anatomical Collection Method Collection Time Re ceived Time Location / / Volume Laterality Urine specimen 07/09/2017 12:05 7 obtained via AM EST 12:39 AM EST indwelling urinary catheter (specimen) Resulting Agency Comment Spec In Lab Yuan Webber MD URINE ORDERABLES Performing Organization Address City/State/ZIP Code Phon e Number [place] [id number] POCT Glucose (07/08/2017 11:01 PM EST) P athologist Signature POC Glucose 191 65 - 199 [facility] mg/dL [facility] LABORATORY [...] Organization Address City/State/[place] [address] POCT Glucose (07/08/2017 10:04 PM EST) P athologist Signature POC Glucose 198 65 - 199 [facility] SU mg/dL [facility] Comment: Supplemental ranges: <140 mg/dL before meals <180 mg/dL all other times of the day Specimen Anatomical Collection Method Collection Time Receive d Time (Source) Location / / Volume Laterality Blood specimen 07/08/2017 10:04 7 (specimen) PM EST 10:04 PM EST Yuan Webber MD POINT OF CARE TEST ORDERABLE S Performing Organization Address City/[facility]/[place] [address] Prepare Albumin 5% in [...] Organization Address City/State/[place] [address] POCT Glucose (07/08/2017 8:28 PM EST) P athologist Signature POC Glucose 195 65 - 199 [facility] Comment: [...] Organization Address City/State/[place] [address] (ABNORMAL) POCT Glucose (07/08/2017 7:13 PM EST) P athologist Signature POC Glucose 220 (H) 65 - 199 [facility] Comment: [...] Organization Address City/State/[place] [address] POCT Glucose (07/08/2017 5:04 PM EST) athologist Signature POC Glucose 147 65 - 199 [facility]dL [facility] Comment: [...] Organization Address City/State/[place] [address] (ABNORMAL) BLOOD GAS 2 ARTERIAL (07/08/2017 4:13 PM EST) Analysis Performed At Patho logist Time Signature pH Art 7.38 7.35 - [facility] 7.45 [facility] LABORATORY pCO2 Art 36 35 - 45 [facility] LABORATORY pO2 Art 91 85 - 104 [facility] LABORATORY HCO3 Art 20.9 20.0 - [facility] 26.0 [facility] mmol/L [facility] LABORATORY BE Art -4.2 (L) -3.0 - 3.0 [facility] mmol/L [facility]ORY Hgb Blood Gas 11.7 (L) 13.7 - [facility] 16.5 gm/dL [facility] LABOR[facility]ORY O2HB Art 95.1 94.0 - [facility] 97.0 % [facility] LABORATORY COHB Art 0.6 % [place] [...] Whole Bld 155 65 - 199 mg/dL [place] [...] Address City/State/[place] [address] POCT Glucose (07/08/2017 4:01 PM EST) athologist Signature POC Glucose 148 65 - 199 [facility] mg/dL [facility] LABORATORY [...] Address City/State/ZIP Code Phon e Number [address] POCT Glucose (07/08/2017 3:21 PM EST) athologist Signature POC Glucose 118 65 - 199 [place] mg/dL [facility] LABORATORY [...] Address City/State/ZIP Code Phon e Number [address] POCT Glucose (07/08/2017 2:01 PM EST) athologist Signature POC Glucose 129 65 - 199 [place] mg/dL [facility] LABORATORY [...] Address City/State/ZIP Code Phon e Number [address] POCT Glucose (07/08/2017 11:53 AM EST) athologist Signature POC Glucose 156 65 - 199 [facility] mg[facility]dL [facility] Comment: [...] Organization Address City/State/[place] [address] POCT Glucose (07/08/2017 11:04 AM EST) athologist Signature POC Glucose 181 65 - 199 [facility] mg/dL [facility] Comment: Supplemental ranges: <140 mg/dL before meals <180 mg/dL all other times of the day Specimen Anatomical Collection Method Collection Time Receive d Time (Source) Location / / Volume Laterality Blood specimen 07/08/2017 11:04 7 (specimen) AM EST 11:04 AM EST Yuan Webber MD POINT OF CARE TEST ORDERABLE S Performing Organization Address City/[facility]/[place] [address] (ABNORMAL) POCT Glucose (07/08/2017 9:24 AM EST) athologist Signature POC Glucose 203 (H) 65 - 199 [facility] mg/dL [facility] Comment: [...] Address City/State/ZIP Code Phon e Number [address] APTT (07/08/2017 8:40 AM EST) athologist Signature PTT 33 25 - 35 sec [facility] LAB[facility]ORY Comment: The recommended therapeutic range for fu ll dose, unfractionated heparin at [facility] is 80 ? 114 seconds. The use [...] Webber MD HEMATOLOGY ORDERABLES Performing Organization Address [facility] [place] [address] (ABNORMAL) Prothrombin Time (07/08/2017 [...] Webber MD HEMATOLOGY ORDERABLES Performing Organization Address City/[facility] [place] [address] (ABNORMAL) POCT Glucose (07/08/2017 7:38 AM EST) P athologist Signature POC Glucose 232 (H) 65 - 199 [facility] mg/dL [facility] LABORATORY [...] Organization Address City/State/[place] [address] (ABNORMAL) POCT Glucose (07/08/2017 7:07 AM EST) athologist Signature POC Glucose 234 (H) 65 - 199 [place] ZHAOSU mg/dL [facility] Comment: Supplemental ranges: <140 mg/dL before meals <180 mg/dL all other times of the day Specimen Anatomical Collection Method Collection Time Receive d Time (Source) Location / / Volume Laterality Blood specimen 07/08/2017 7:07 AM 017 7:07 (specimen) EST AM EST Yuan Webber MD POINT OF CARE TEST ORDERABLE S Performing Organization Address City/[facility]/[place] [address] (ABNORMAL) POCT Glucose (07/08/2017 6:04 AM EST) athologist Signature POC Glucose 225 (H) 65 - 199 [place] mg/dL [facility] Comment: Supplemental ranges: <140 mg/dL before meals <180 mg/dL all other times of the day Specimen Anatomical Collection Method Collection Time Receive d Time (Source) Location / / Volume Laterality Blood specimen 07/08/2017 6:04 AM 017 6:04 (specimen) EST AM EST Yuan Webber MD POINT OF CARE TEST ORDERABLE S Performing Organization Address City/[facility]/[place] [address] (ABNORMAL) POCT Glucose (07/08/2017 5:31 AM EST) athologist Signature POC Glucose 216 (H) 65 - 199 [facility] SU mg/dL [facility] LABORATORY [...] Organization Address City/State/[place] [address] (ABNORMAL) POCT Glucose (07/08/2017 4:52 AM EST) P athologist Signature POC Glucose 257 (H) 65 - 199 [facility] mg/dL [facility] LABORATORY [...] Organization Address City/State/[place] [address] (ABNORMAL) BLOOD GAS 2 ARTERIAL (07/08/2017 4:04 AM EST) Analysis Performed At Patho logist Time Signature pH Art 7.30 (L) 7.35 - [facility] 7.45 [facility] LABORATORY pCO2 Art 41 35 - 45 [facility] mmHg [facility] LABORATORY pO2 Art 83 (L) 85 - 104 [facility] LABORATORY HCO3 Art 19.6 (L) 20.0 - [facility] 26.0 [facility] mmol/L [facility] LABORATORY BE Art -6.8 (L) -3.0 - 3.0 [facility] mmol/L [facility] LABORATORY Hgb Blood Gas 12.2 (L) 13.7 - [facility] 16.5 gm/dL [facility] LABORATORY O2HB Art 93.5 (L) 94.0 - [facility] 97.0 % [facility] LABORATORY COHB Art 0.4 % [place] [...] Bld 274 (H) 65 - 199 mg/dL [facility] LABORATORY Comment: Diabetes: >=200 mg/dL plus symp toms. Lactate WB 4.4 (Critical) 0.5 - 2.2 mmol/L [facility] LABORATORY Comment: Noted by instrument mechanics supervisor. FIO2 Art 40 % [facility] LABORATORY PF Ratio Art 208 [facility] LABORATORY Specimen Anatomical Collection Method Collection Time Receive d Time (Source) Location / / Volume Laterality Blood specimen 07/08/2017 4:04 AM 017 4:04 (specimen) EST AM EST Daphne Shahid MD CHEMISTRY ORDERABLES Performing Organization Address City/[facility]/[place] [address] Scan, Peripheral Blood (07/08/2017 [...] Webber MD HEMATOLOGY ORDERABLES Performing Organization Address City/[facility]/[place] [address] (ABNORMAL) Differential, Automated (07/08/2017 4:00 AM EST) Patholo gist Method Time Signature Neutrophils % 85.4 % [facility] LABORATORY Neutr Abs (ANC) 16.07 (H) 1.70 - [facility] 6.10 [facility] x10(3)/[facility] L LABORATORY Lymphocytes % 3.5 % [facility] LABORATORY Lymphocytes Abs 0.6 (L) 0.9 - 3.2 [facility] x10(3)/[facility] LABORATORY Monocytes % 10.4 % [facility] LABORATORY Monocyte Abs 2.0 (H) 0.3 - 0.9 [facility] x10(3)/[facility] LABORATORY Eosinophils % 0.0 % [facility] LABORATORY Eosinophils Abs 0.0 0.0 - 0.4 [facility] x10(3)/[facility] LABORATORY Basophils % 0.1 % [facility] LABORATORY Basophils Abs 0.0 0.0 - 0.1 [facility] x10(3)/[facility] LABORATORY Immature Gran % 0.60 % [place] [...] Address City/State/[place] [address] (ABNORMAL) Hemogram (07/08/2017 4:00 AM EST) Analysis Performed At Patho logist Time Signature WBC 18.8 (H) 4.0 - 9.5 [facility] x10(3)/[facility] LABORATORY RBC 4.00 (L) 4.58 - [place] ZHAOSU 5.54 [facility] x10(6)/[facility] LABORATORY Hemoglobin 11.9 (L) 13.7 - [place] ZHAOSU 16.5 gm/dL [facility] LABORATORY Hematocrit 35.9 (L) 40.5 - [place] 48.5 % [facility] LABORATORY MCV 89.8 82.9 - [facility] 93.1 [facility] LABORATORY MCH 29.8 27.5 - [place] ZHAOSU 32.1 pg [facility] LABORATORY MCHC 33.1 32.0 - [place] ZHAOSU 35.7 gm/dL [facility] LABORATORY Platelets 232 145 - 357 [facility] x10(3)/[facility] LABORATORY RDWSD 47.6 (H) 36.0 - [place] 45.0 [place] [facility] LABORATORY RDWCV 14.5 (H) 11.4 - [facility] 13.8 % [facility] LABORATORY MPV 9.5 7.6 - 12.9 [place] SU [facility] LABORATORY nRBC % Auto 0.0 % [facility] LABORATORY nRBC Abs Auto 0.000 0.000 - [place] ZHAOSU 0.000 [facility] x10(3)/[facility] LABORATORY Specimen Anatomical Collection Method Collection Time Receive d Time (Source) Location / / Volume Laterality Blood specimen 07/08/2017 4:00 AM 017 4:09 (specimen) EST AM EST Resulting Agency Comment Spec In Lab Yuan Webber MD HEMATOLOGY ORDERABLES Performing Organization Address City/State/[place] [address] (ABNORMAL) Electrolytes panel (07/08/2017 4:00 AM EST) P athologist Signature Sodium 139 135 - 145 [facility] mmol/L [facility] LABORATORY Potassium 4.7 3.5 - 5.0 [facility] mmol/L [facility] LABORATORY Comment: [...] - 15 mmol/L [facility] LABORATORY Specimen Anatomical Collection Method Collection Time Receive d Time (Source) Location / / Volume Laterality Blood specimen 07/08/2017 4:00 AM 017 4:10 (specimen) EST AM EST Resulting Agency Comment Spec In Lab Yuan Webber MD CHEMISTRY ORDERABLES Performing Organization Address City/State/[place] [address] (ABNORMAL) Cardiac Enzymes (LEB/CGP) (07/08/2017 4:00 AM EST) P athologist Signature Troponin-T 1.88 (H) 0.00 - [facility] 0.00 ng/mL [facility] [...] additional sample may be indicated. Reference: Third Hurley Definition of Myocardial Infarction. Journal of the [place] [employer] 2012;60:1581-98 CK, Total 413 (H) 0 - 200 unit/L [facility] LABORATORY Comment: result rechecked-[id number] Specimen Anatomical Collection Method Collection Time Receive d Time (Source) Location / / Volume Laterality Blood specimen 07/08/2017 4:00 AM 017 4:09 (specimen) EST AM EST Resulting Agency Comment Spec In Lab Yuan Webber MD CHEMISTRY ORDERABLES Performing Organization Address City/[facility]/ZIP Code Phon e Number [address] (ABNORMAL) Glucose, fasting (07/08/2017 4:00 AM EST) P athologist Signature Glucose 287 (H) 65 - 99 [facility] Fasting mg/dL [facility] LABORATORY [...] of Diabetes Mellitus, Position Statement from the [place] [employer]. ??Diabete s Care, Volume 33, Supplement 1, Jul 2009 Specimen Anatomical Collection Method Collection Time Receive d Time (Source) Location / / Volume Laterality Blood specimen 07/08/2017 4:00 AM 017 4:09 (specimen) EST AM EST Resulting Agency Comment Spec In Lab Yuan Webber MD CHEMISTRY ORDERABLES Performing Organization Address City/[facility]/ZIP Code Phon e Number [address] (ABNORMAL) Creatinine (07/08/2017 4:00 AM EST) Analysis Performed At Patho logist Time Signature Creatinine 1.55 (H) 0.80 - [facility] 1.50 mg/dL [facility] LABORATORY Estimated GFR 44 (L) >=60 [facility] LABORATORY Comment: The reported eGFR should be multiplied b y 1.2 for patients. The MDRD is not an appropriate measure o f renal function for patients with body mass extremes or in patients with acute kidney failure. [email or web address] [email or web address] Specimen Anatomical Collection Method Collection Time Receive d Time (Source) Location / / Volume Laterality Blood specimen 07/08/2017 4:00 AM 017 4:09 (specimen) EST AM EST Resulting Agency Comment Spec In Lab Yuan Webber MD CHEMISTRY ORDERABLES Performing Organization Address City/[facility]/[place]IP [facility] [place] Number [address] BUN (07/08/2017 4:00 AM EST) athologist Signature BUN 16 10 - 20 [facility]dL [facility] LABORATORY Specimen Anatomical Collection Method Collection Time Receive d Time (Source) Location / / Volume Laterality Blood specimen 07/08/2017 4:00 AM 017 4:09 (specimen) EST AM EST Resulting Agency Comment Spec In Lab Yuan Webber MD CHEMISTRY ORDERABLES Performing Organization Address City/[facility] [place] [address] (ABNORMAL) POCT Glucose (07/08/2017 3:00 AM EST) athologist Signature POC Glucose 273 (H) 65 - 199 [facility] mg/dL [facility] LABORATORY Comment: Supplemental ranges: <140 mg/dL before meals <180 mg/dL all other times of the day Specimen Anatomical Collection Method Collection Time Receive d Time (Source) Location / / Volume Laterality Blood specimen 07/08/2017 3:00 AM 017 3:00 (specimen) EST AM EST Daphne Shahid MD POINT OF CARE TEST ORDERABLE S Performing Organization Address City/[facility]/[place] [address] (ABNORMAL) POCT Glucose (07/08/2017 1:57 AM EST) athologist Signature POC Glucose 288 (H) 65 - 199 [facility] mg/dL [facility] LABORATORY Comment: Supplemental ranges: <140 mg/dL before meals <180 mg/dL all other times of the day Specimen Anatomical Collection Method Collection Time Receive d Time (Source) Location / / Volume Laterality Blood specimen 07/08/2017 1:57 AM 017 1:57 (specimen) EST AM EST Daphne Shahid MD POINT OF CARE TEST ORDERABLE S Performing Organization Address City/[facility]/[place] [address] (ABNORMAL) POCT Glucose (07/08/2017 1:01 AM EST) athologist Signature POC Glucose 315 (H) 65 - 199 [facility] mg/dL [facility] LABORATORY Comment: Supplemental ranges: <140 mg/dL before meals <180 mg/dL all other times of the day Specimen Anatomical Collection Method Collection Time Receive d Time (Source) Location / / Volume Laterality Blood specimen 07/08/2017 1:01 AM 017 1:01 (specimen) EST AM EST Daphne Shahid MD POINT OF CARE TEST ORDERABLE S Performing Organization Address City/[facility]/[place] [address] (ABNORMAL) BLOOD GAS 2 ARTERIAL (07/08/2017 12:09 AM EST) athologist Signature pH Art 7.26 7.35 - [facility] (Critical) 7.45 [facility] LABORATORY Comment: Noted by instrument mechanics supervisor. pCO2 Art 41 35 - 45 mmHg [facility] LABORATORY pO2 Art 96 85 - 104 mmHg [facility] LABORATORY HCO3 Art 17.7 (L) 20.0 - 26.0 mmol/L [facility] LABORATORY BE Art -9.4 (L) -3.0 - 3.0 mmol/L [facility] LABORATORY Hgb Blood Gas 12.4 (L) 13.7 - 16.5 gm/dL [facility] LABORATORY O2HB Art 94.7 94.0 - 97.0 % [facility] LABORATORY COHB Art 0.2 % WHITE [...] Bld 315 (H) 65 - 199 mg/dL [facility] LABORATORY Comment: Diabetes: >=200 mg/dL plus symp toms. Lactate WB 7.6 (Critical) 0.5 - 2.2 mmol/L [facility] LABORATORY Comment: Noted by instrument mechanics supervisor. FIO2 Art 40 % [place] [...] Address City/State/[place] [address] (ABNORMAL) POCT Glucose (07/07/2017 10:56 PM EST) P athologist Signature POC Glucose 292 (H) 65 - 199 [facility] mg/dL [facility] LABORATORY [...] Address City/State/Z[place] [address] (ABNORMAL) BLOOD GAS 2 ARTERIAL (07/07/2017 10:04 PM EST) athologist Signature pH Art 7.22 7.35 - [facility] (Critical) 7.45 [facility] LABORATORY Comment: Noted by instrument mechanics supervisor. pCO2 Art 42 35 - 45 mmHg [facility] LABORATORY pO2 Art 94 85 - 104 mmHg [facility] LABORATORY HCO3 Art 16.9 (L) 20.0 - 26.0 mmol/L [facility] LABORATORY BE Art -10.7 (L) -3.0 - 3.0 mmol/L [facility] LABORATORY Hgb Blood Gas 13.0 (L) 13.7 - 16.5 gm/dL [facility] LABORATORY O2HB Art 93.8 (L) 94.0 - 97.0 % [facility] LABORATORY COHB Art 0.7 % WHITE [...] Bld 304 (H) 65 - 199 mg/dL [facility] LABORATORY Comment: Diabetes: >=200 mg/dL plus symp toms. Lactate WB 8.2 (Critical) 0.5 - 2.2 mmol/L [facility] LABORATORY Comment: Noted by instrument mechanics supervisor. FIO2 Art 40 % [facility] LABORATORY PF Ratio Art 235 [facility] LABORATORY Specimen Anatomical Collection Method Collection Time Receive d Time (Source) Location / / Volume Laterality Blood specimen 07/07/2017 10:04 7 (specimen) PM EST 10:04 PM EST Daphne Shahid MD CHEMISTRY ORDERABLES Performing Organization Address City/[facility]/[place] [address] (ABNORMAL) Hemoglobin (07/07/2017 10:00 PM EST) P athologist Signature Hemoglobin 12.8 (L) 13.7 - [facility] 16.5 gm/dL [facility] LABORATORY Specimen Anatomical Collection Method Collection Time Receive d Time (Source) Location / / Volume Laterality Blood specimen 07/07/2017 10:00 7 (specimen) PM EST 10:13 PM EST Resulting Agency Comment Spec In Lab Yuan Webber MD HEMATOLOGY ORDERABLES Performing Organization Address City/[facility]/[place] [address] (ABNORMAL) Potassium (07/07/2017 10:00 PM EST) P athologist Signature Potassium 3.4 (L) 3.5 - 5.0 [facility] mmol/L [facility] LABORATORY [...] Webber MD CHEMISTRY ORDERABLES Performing Organization Address City/[facility]/ZIP Code Phon e Number [address] (ABNORMAL) POCT Glucose (07/07/2017 8:49 PM EST) P athologist Signature POC Glucose 241 (H) 65 - 199 [facility] mg/dL [facility] LABORATORY Comment: Supplemental ranges: <140 mg/dL before meals <180 mg/dL all other times of the day Specimen Anatomical Collection Method Collection Time Receive d Time (Source) Location / / Volume Laterality Blood specimen 07/07/2017 8:49 PM 017 8:49 (specimen) EST PM EST Daphne Shahid MD POINT OF CARE TEST ORDERABLE S Performing Organization Address City/[facility]/[place] [address] Prepare Albumin 5% in 250 mL (07/07/2017 8:03 PM EST) athologist Signature Dispensed? Yes [facility] LABORATORY Specimen Anatomical Collection Method Collection Time Receive d Time (Source) Location / / Volume Laterality Blood specimen No Charge / 07/07/2017 8:03 PM 017 8:04 (specimen) Unknown EST PM EST Resulting Agency Comment Spec In Lab Michael BROWN BLOOD BANK ORDERABLES Performing Organization Address City/[facility]/[place]IP [facility] [place] [address] EKG 12 Lead (07/07/2017 7:17 PM EST) Component Value Ref Range Test Analysis Performed Pathologis t Method Time At Signature Ventricular rate 75 BPM MUSE SYSTEM Atrial Rate 75 BPM MUSE SYSTEM P-R Interval 168 ms MUSE SYSTEM QRS Duration 104 ms MUSE SYSTEM Q-T Interval 462 ms MUSE SYSTEM QTC Calculated 515 ms MUSE SYSTEM (Bezet) Calculated P Hudson 52 degrees MUSE SYSTEM Calculated R Hudson -40 degrees MUSE SYSTEM Calculated T Hudson 39 degrees MUSE SYSTEM INTERPRETATION Normal sinus [...] 7.35 - [facility] (Critical) 7.45 [facility] LABORATORY Comment: Noted by instrument mechanics supervisor. pCO2 Art 50 (H) 35 - 45 mmHg [facility] LABORATORY pO2 Art 238 (H) 85 - 104 mmHg [facility] LABORATORY HCO3 Art 19.8 (L) 20.0 - 26.0 mmol/L [facility] LABORATORY BE Art -8.1 (L) -3.0 - 3.0 mmol/L [facility] LABORATORY Hgb Blood Gas 12.8 (L) 13.7 - 16.5 gm/dL [facility] LABORATORY O2HB Art 97.5 (H) 94.0 - 97.0 % [facility] LABORATORY COHB Art 0.5 % [facility] Comment: Noted by instrument mechanics supervisor. Please note: Patients with WBC >100,000 [...] Bld 270 (H) 65 - 199 mg/dL [facility] LABORATORY Comment: Diabetes: >=200 mg/dL plus symp toms. Lactate WB 4.9 (Critical) 0.5 - 2.2 mmol/L [facility] LABORATORY Comment: Noted by instrument mechanics supervisor. FIO2 Art 100 % [facility] LABORATORY PF Ratio Art 238 [facility] LABORATORY Specimen Anatomical Collection Method Collection Time Receive d Time (Source) Location / / Volume Laterality Blood specimen 07/07/2017 6:57 PM 017 6:57 (specimen) EST PM EST Daphne Shahid MD CHEMISTRY ORDERABLES Performing Organization Address City/State/[place] [address] (ABNORMAL) BLOOD GAS 2 ARTERIAL (07/07/2017 5:31 PM EST) P athologist Signature pH Art 7.29 7.35 - [facility] (Critical) 7.45 [facility] LABORATORY Comment: Noted by instrument mechanics supervisor. pCO2 Art 48 (H) 35 - 45 mmHg [facility] LABORATORY pO2 Art 137 (H) 85 - 104 mmHg [facility] LABORATORY HCO3 Art 22.4 20.0 - 26.0 mmol/L [facility] LABORATORY BE Art -4.3 (L) -3.0 - 3.0 mmol/L [facility] LABORATORY Hgb Blood Gas 10.0 (L) 13.7 - 16.5 gm/dL [facility] LABORATORY O2HB Art 97.3 (H) 94.0 - 97.0 % [facility] LABORATORY COHB Art 0.3 % WHITE [...] Bld 293 (H) 65 - 199 mg/dL [place] [...] Shahid MD CHEMISTRY ORDERABLES Performing Organization Address City/[facility]/[place] [address] Fibrinogen (07/07/2017 5:30 PM EST) athologist Signature Fibrinogen 224 180 - 510 [facility] mg/dL [facility] LABORATORY [...] Perez MD HEMATOLOGY ORDERABLES Performing Organization Address City/[facility]/[place] [address] APTT (07/07/2017 5:30 PM EST) athologist Signature PTT 30 25 - 35 sec [facility] LABORATORY Comment: The recommended therapeutic range for fu ll dose, unfractionated heparin at [facility] is 80 ? 114 seconds. The use [...] Organization Address City/State/[place] [address] (ABNORMAL) Prothrombin Time (07/07/2017 [...] Organization Address City/State/[place] [address] (ABNORMAL) Hemogram (07/07/2017 5:30 PM EST) athologist Signature WBC 19.6 (H) 4.0 - 9.5 [facility] x10(3)/[facility] LABORATORY RBC 3.08 (L) 4.58 - [facility] 5.54 [facility] x10(6)/[facility] LABORATORY Hemoglobin 9.2 (L) 13.7 - [facility] 16.5 gm/dL [facility] LABORATORY Hematocrit 28.0 (L) 40.5 - [facility] 48.5 % [facility] [...] 14.1 (H) 11.4 - 13.8 % [facility] LABORATORY MPV 9.5 7.6 - 12.9 [facility] LABORATORY nRBC % Auto 0.0 % [facility] LABORATORY nRBC Abs Auto 0.000 0.000 - 0.000 x10(3)/[facility] LABORATORY Specimen Anatomical Collection Method Collection Time Receive d Time (Source) Location / / Volume Laterality Blood specimen 07/07/2017 5:30 PM 017 5:34 (specimen) EST PM EST Resulting Agency Comment Spec In Lab Yifan Perez MD HEMATOLOGY ORDERABLES Performing Organization Address City/State/Z[place] [address] Prepare Platelets, Apheresis (07/07/2017 5:00 PM EST) P athologist Signature Dispensed? Yes [facility] LABORATORY Specimen Anatomical Collection Method Collection Time Receive d Time (Source) Location / / Volume Laterality Blood specimen 07/07/2017 5:00 PM 017 4:58 (specimen) EST PM EST Daphne Shahid MD BLOOD BANK ORDERABLES Performing Organization Address City/State/[place] [address] Platelet count (07/07/2017 4:55 PM EST) P athologist Signature Platelets 177 145 - 357 [facility] x10(3)/[facility] LABORATORY Plat Immature 1.5 0.0 - 7.4 [place] % % [facility] LABORATORY Comment: Limitation of the Immature Platelet Frac tion (IPF)-May be less reliable when the platelet count is less than 18y147/u L due to statistical imprecision. The IPF [...] in a decreased state of production. References: [employer] The Clinical Value of the Immature Platelet Fraction (IPF) in Cell Recovery Document Number 10-1143 12/2010 [employer] The Role of the Imm ature [...] Organization Address City/State/[place] [address] (ABNORMAL) Hemoglobin and Hematocrit, blood (07/07/2017 4:55 PM EST) P athologist Signature Hemoglobin 9.1 (L) 13.7 - 16.5 [facility] gm/dL [facility] LABORATORY Comment: [...] Organization Address City/State/[place] [address] (ABNORMAL) BLOOD GAS 2 ARTERIAL (07/07/2017 4:38 PM EST) Analysis Performed At Patho logist Time Signature pH Art 7.37 7.35 - [facility] 7.45 [facility] LABORATORY pCO2 Art 44 35 - 45 [facility] mmHg [facility] LABORATORY pO2 Art 322 (H) 85 - 104 [facility] LABORATORY HCO3 Art 24.9 20.0 - [facility] 26.0 [facility] mmol/L [facility] LABORATORY BE Art -0.4 -3.0 - 3.0 [facility] mmol/L [facility] LABORATORY Hgb Blood Gas 10.1 (L) 13.7 - [facility] 16.5 gm/dL [facility] LABORATORY O2HB Art 98.7 (H) 94.0 - [facility] 97.0 % [facility] LABORATORY COHB Art 0.1 % [facility] Comment: Noted by instrument mechanics supervisor. Note: ??Total bilirubin higher than 20 m g/dL may lead to falsely low ionized calcium. CL Whole Blood 101 98 - 107 mmol/L [facility] LABORATORY Gluc Whole Bld 295 (H) 65 - 199 mg/dL [place] [...] Organization Address City/State/ZIP Code Phon e Number [place] [id number] (ABNORMAL) BLOOD GAS 2 VENOUS (07/07/2017 4:06 PM EST) Analysis Performed At Patho logist Time Signature pH Cody 7.31 (L) 7.32 - [facility] 7.42 [facility] LABORATORY pCO2 Cody 47 41 - 51 [facility] LABORATORY pO2 Cody 53 (H) 25 - 40 [facility] LABORATORY HCO3 Cody 22.7 mmol/L [facility] LABORATORY BE Cody -3.7 mmol/L [facility] LABORATORY Hgb Blood Gas 10.2 (L) 13.7 - [facility] 16.5 gm/dL [facility] O2HB Cody 81.0 % [facility] Comment: Noted by instrument mechanics supervisor. Note: ??Total bilirubin higher than 20 m g/dL may lead to falsely low ionized calcium. CL Whole Blood 100 98 - 107 mmol/L [facility] LABORATORY Gluc Whole Bld 231 (H) 65 - 199 mg/dL [facility] LABORATORY Comment: Diabetes: >=200 mg/dL plus symp toms Lactate WB 1.1 0.5 - 2.2 mmol/L [facility] LABORATORY BGas Source Venous [facility] LABORATORY Specimen Anatomical Collection Method Collection Time Receive d Time (Source) Location / / Volume Laterality Blood specimen 07/07/2017 4:06 PM 017 4:06 (specimen) EST PM EST Daphne Shahid MD CHEMISTRY ORDERABLES Performing Organization Address City/State/[place] [address] (ABNORMAL) BLOOD GAS 2 ARTERIAL (07/07/2017 4:05 PM EST) Analysis Performed At Patho logist Time Signature pH Art 7.36 7.35 - [facility] 7.45 [facility] LABORATORY pCO2 Art 40 35 - 45 [facility] LABORATORY pO2 Art 282 (H) 85 - 104 [facility] LABORATORY HCO3 Art 22.1 20.0 - [facility] 26.0 [facility] LABORATORY BE Art -3.4 (L) -3.0 - 3.0 [facility] mmol/L [facility] LABORATORY Hgb Blood Gas 10.2 (L) 13.7 - [facility] 16.5 gm/dL [facility] LABORATORY O2HB Art 98.4 (H) 94.0 - [facility] 97.0 % [facility] LABORATORY COHB Art 0.3 % [facility] Comment: Noted by instrument mechanics supervisor. Note: ??Total bilirubin higher than 20 m g/dL may lead to falsely low ionized calcium. CL Whole Blood 101 98 - 107 mmol/L [facility] LABORATORY Gluc Whole Bld 260 (H) 65 - 199 mg/dL [place] [...] Address City/State/[place] [address] (ABNORMAL) BLOOD GAS 2 ARTERIAL (07/07/2017 2:29 PM EST) Analysis Performed At Patho logist Time Signature pH Art 7.43 7.35 - [facility] 7.45 [facility] LABORATORY pCO2 Art 36 35 - 45 [facility] LABORATORY pO2 Art 221 (H) 85 - 104 [facility] LABORATORY HCO3 Art 23.2 20.0 - [facility] 26.0 [facility] mmol/[facility] LABORATORY BE Art -1.2 -3.0 - 3.0 [facility] mmol/L [facility] LABORATORY Hgb Blood Gas 13.9 13.7 - [facility] 16.5 gm/dL [facility] LABORATORY O2HB Art 97.8 (H) 94.0 - [facility] 97.0 % [facility] LABORATORY COHB Art 1.1 % [facility] [...] Whole Bld 184 65 - 199 mg/dL [place] [...] Address City/State/[place] [address] Prepare Coag Factors (Non-Hemophilia) (07/07/2017 1:25 PM EST) athologist Signature Dispensed? Yes [facility] LABORATORY Specimen Anatomical Collection Method Collection Time Receive d Time (Source) Location / / Volume Laterality Blood specimen 07/07/2017 1:25 PM 017 1:21 (specimen) EST PM EST Daphne Shahid MD BLOOD BANK ORDERABLES Performing Organization Address City/[facility]/ZIP Code Phon e Number [address] Prepare RBC (07/07/2017 1:10 PM EST) athologist Signature Dispensed? Yes [facility] LABORATORY Specimen Anatomical Collection Method Collection Time Receive d Time (Source) Location / / Volume Laterality Blood specimen 07/07/2017 1:10 PM 017 1:05 (specimen) EST PM EST Daphne Shahid MD BLOOD BANK ORDERABLES Performing Organization Address City/[facility]/ZIP Code Phon e Number [address] POCT Glucose (07/07/2017 11:56 AM EST) athologist Signature POC Glucose 188 65 - 199 [facility] mg[facility]dL [facility] LAB[facility]ORY Comment: Supplemental ranges: <140 mg/dL before meals <180 mg/dL all other times of the day Specimen Anatomical Collection Method Collection Time Receive d Time (Source) Location / / Volume Laterality Blood specimen 07/07/2017 11:56 7 (specimen) AM EST 11:56 AM EST Daphne Shahid MD POINT OF CARE TEST ORDERABLE S Performing Organization Address City/[facility]/[place] [address] POCT Glucose (07/07/2017 11:05 AM EST) athologist Signature POC Glucose 168 65 - 199 [facility] mg/dL [facility] LAB[facility]ORY Comment: Supplemental ranges: <140 mg/dL before meals <180 mg/dL all other times of the day Specimen Anatomical Collection Method Collection Time Receive d Time (Source) Location / / Volume Laterality Blood specimen 07/07/2017 11:05 7 (specimen) AM EST 11:05 AM EST Daphne Shahid MD POINT OF CARE TEST ORDERABLE S Performing Organization Address City/[facility]/ZIP Code Phon e Number [address] POCT Glucose (07/07/2017 10:02 AM EST) athologist Signature POC Glucose 191 65 - 199 [place] mg/dL [facility] LABORATORY Comment: Supplemental ranges: <140 mg/dL before meals <180 mg/dL all other times of the day Specimen Anatomical Collection Method Collection Time Receive d Time (Source) Location / / Volume Laterality Blood specimen 07/07/2017 10:02 7 (specimen) AM EST 10:02 AM EST Daphne Shahid MD POINT OF CARE TEST ORDERABLE S Performing Organization Address City/[facility]/ZIP Code Phon e Number [address] POCT Glucose (07/07/2017 7:53 AM EST) athologist Signature POC Glucose 178 65 - 199 [place] mg/dL [facility] Comment: Supplemental ranges: <140 mg/dL before meals <180 mg/dL all other times of the day Specimen Anatomical Collection Method Collection Time Receive d Time (Source) Location / / Volume Laterality Blood specimen 07/07/2017 7:53 AM 017 7:53 (specimen) EST AM EST Daphne Shahid MD POINT OF CARE TEST ORDERABLE S Performing Organization Address City/[facility]/ZIP Code Phon e Number [address] POCT Glucose (07/07/2017 7:03 AM EST) athologist Signature POC Glucose 188 65 - 199 [place] mg/dL [facility] LABORATORY [...] Address City/State/ZIP Code Phon e Number [address] (ABNORMAL) POCT Glucose (07/07/2017 6:17 AM EST) athologist Signature POC Glucose 207 (H) 65 - 199 [facility] Comment: [...] Address City/State/ZIP Code Phon e Number [address] Differential, Automated (07/07/2017 5:15 AM EST) athologist [facility] Neutrophils % 69.7 % [facility] LABORATORY Neutr Abs (ANC) 5.32 1.70 - [facility] 6.10 [facility] x10(3)/[facility] LABORATORY Lymphocytes % 16.3 % [facility] LABORATORY Lymphocytes Abs 1.2 0.9 - 3.2 [facility] x10(3)/[facility] LABORATORY Monocytes % 10.5 % [facility] LABORATORY Monocyte Abs 0.8 0.3 - 0.9 [facility] x10(3)/[facility] LABORATORY Eosinophils % 2.5 % [facility] LABORATORY Eosinophils Abs 0.2 0.0 - 0.4 [facility] x10(3)/[facility] LABORATORY Basophils % 0.7 % [facility] LABORATORY Basophils Abs 0.0 0.0 - 0.1 [facility] x10(3)/[facility] LABORATORY Immature [...] Melisa Gran Abs 0.02 0.00 - 0.04 x10(3)/[facility] LABORATORY Specimen Anatomical Collection Method Collection Time Receive d Time (Source) Location / / Volume Laterality Blood specimen 07/07/2017 5:15 AM 017 5:34 (specimen) EST AM EST Resulting Agency Comment Spec In Lab Daphne Shahid MD HEMATOLOGY ORDERABLES Performing Organization Address City/State/[place] [address] (ABNORMAL) Hemogram (07/07/2017 5:15 AM EST) Analysis Performed At Patho logist Time Signature WBC 7.6 4.0 - 9.5 [facility] x10(3)/[facility] LABORATORY RBC 4.82 4.58 - [facility] 5.54 [facility] x10(6)/[facility] LABORATORY Hemoglobin 14.4 13.7 - [facility] 16.5 gm/dL [facility] Hematocrit 42.1 40.5 - [facility] 48.5 % [facility] LAB[facility]ATORY MCV 87.3 82.9 - [facility] 93.1 [facility] LABORATORY MCH 29.9 27.5 - [facility] 32.1 pg [facility] LABORATORY MCHC 34.2 32.0 - [facility] 35.7 gm/dL [facility] Platelets 188 145 - 357 [facility] x10(3)/[facility] LABORATORY RDWSD 45.1 (H) 36.0 - [facility] 45.0 [facility] LABORATORY RDWCV 14.3 (H) 11.4 - [facility] 13.8 % [facility] LABORATORY MPV 9.4 7.6 - 12.9 [facility] LABORATORY nRBC % Auto 0.0 % [facility] LABORATORY nRBC Abs Auto 0.000 0.000 - [facility] 0.000 [facility] x10(3)/[facility] LABORATORY Specimen Anatomical Collection Method Collection Time Receive d Time (Source) Location / / Volume Laterality Blood specimen 07/07/2017 5:15 AM 017 5:34 (specimen) EST AM EST Resulting Agency Comment Spec In Lab Daphne Shahid MD HEMATOLOGY ORDERABLES Performing Organization Address City/[facility]/[place] [address] (ABNORMAL) APTT (07/07/2017 5:15 AM EST) athologist Signature PTT 69 (H) 25 - 35 sec [facility] LAB[facility] Comment: The recommended therapeutic range for fu ll dose, unfractionated heparin at [facility] is 80 ? 114 seconds. The use [...] Shahid MD HEMATOLOGY ORDERABLES Performing Organization Address City/[facility]/[place] [address] Magnesium (07/07/2017 5:15 AM EST) athologist Signature Magnesium 0.94 0.69 - 1.07 [facility] mmol/L [facility] LABORATORY Specimen Anatomical Collection Method Collection Time Receive d Time (Source) Location / / Volume Laterality Blood specimen 07/07/2017 5:15 AM 017 5:34 (specimen) EST AM EST Resulting Agency Comment Spec In Lab Daphne Shahid MD CHEMISTRY ORDERABLES Performing Organization Address City/[facility]/[place] [address] (ABNORMAL) Basic Metabolic Panel (non-fasting) (07/07/2017 5:15 AM EST) P athologist Signature Glucose Lvl 203 (H) 65 - 199 [facility] mg/dL [facility] Comment: Diabetes: >=200 mg/dL plus symp toms BUN 15 10 - 20 mg/dL [facility] LABORATORY Creatinine 1.09 0.80 - 1.50 [...] or in patients with acute kidney failure. [email or web address] Specimen Anatomical Collection Method Collection Time Receive d Time (Source) Location / / Volume Laterality Blood specimen 07/07/2017 5:15 AM 017 5:34 (specimen) EST AM EST Resulting Agency Comment Spec In Lab Daphne Shahid MD CHEMISTRY ORDERABLES Performing Organization Address City/State/[place] [address] (ABNORMAL) Cardiac Enzymes (LEB/CGP) (07/07/2017 5:15 AM EST) P athologist Signature Troponin-T 2.07 (H) 0.00 - [facility] 0.00 ng/mL [facility] [...] additional sample may be indicated. Reference: Third Hurley Definition of Myocardial Infarction. Journal of the [place] [employer] 2012;60:1581-98 CK, Total 88 0 - 200 unit/L [facility] LABORATORY Specimen Anatomical Collection Method Collection Time Receive d Time (Source) Location / / Volume Laterality Blood specimen 07/07/2017 5:15 AM 017 5:34 (specimen) EST AM EST Resulting Agency Comment Spec In Lab Daphne Shahid MD CHEMISTRY ORDERABLES Performing Organization Address City/[facility]/ZIP Code Phon e Number [address] POCT Glucose (07/07/2017 5:01 AM EST) P athologist Signature POC Glucose 182 65 - 199 [facility] mg/dL [facility] Comment: Supplemental ranges: <140 mg/dL before meals <180 mg/dL all other times of the day Specimen Anatomical Collection Method Collection Time Receive d Time (Source) Location / / Volume Laterality Blood specimen 07/07/2017 5:01 AM 017 5:01 (specimen) EST AM EST Daphne Shahid MD POINT OF CARE TEST ORDERABLE S Performing Organization Address City/[facility]/[place] [address] POCT Glucose (07/07/2017 4:08 AM EST) athologist Signature POC Glucose 199 65 - 199 [facility] mg/dL [facility] Comment: [...] Organization Address City/State/[place] [address] POCT Glucose (07/07/2017 3:03 AM EST) athologist Signature POC Glucose 188 65 - 199 [facility] mg/dL [facility] Comment: Supplemental ranges: <140 mg/dL before meals <180 mg/dL all other times of the day Specimen Anatomical Collection Method Collection Time Receive d Time (Source) Location / / Volume Laterality Blood specimen 07/07/2017 3:03 AM 017 3:03 (specimen) EST AM EST Daphne Shahid MD POINT OF CARE TEST ORDERABLE S Performing Organization Address City/[facility]/[place] [address] (ABNORMAL) POCT Glucose (07/07/2017 2:08 AM EST) athologist Signature POC Glucose 200 (H) 65 - 199 [facility] mg/dL [facility] Comment: [...] Organization Address City/State/[place] [address] (ABNORMAL) POCT Glucose (07/07/2017 1:31 AM EST) P athologist Signature POC Glucose 209 (H) 65 - 199 [place] mg/dL [facility] LABORATORY [...] Address City/State/[place] [address] XR Chest PA or [...] Glucose 161 65 - 199 [facility] mg/dL [facility] Comment: Supplemental ranges: <140 mg/dL before meals <180 mg/dL all other times of the day Specimen Anatomical Collection Method Collection Time Receive d Time (Source) Location / / Volume Laterality Blood specimen 07/07/2017 12:07 12 7 (specimen) AM EST 12:07 AM EST Daphne Shahid MD POINT OF CARE TEST ORDERABLE S Performing Organization Address City/[facility]/[place] [address] (ABNORMAL) APTT (07/07/2017 12:00 AM EST) athologist Signature PTT 103 (H) 25 - 35 sec [facility] Comment: The recommended therapeutic range for fu ll dose, unfractionated heparin at [facility] is 80 ? 114 seconds. The use [...] Shahid MD HEMATOLOGY ORDERABLES Performing Organization Address City/[facility]/[place] [address] POCT Glucose (07/06/2017 9:55 PM EST) athologist Signature POC Glucose 109 65 - 199 [facility] mg/dL [facility] Comment: [...] Organization Address City/State/[place] [address] POCT Glucose (07/06/2017 9:04 PM EST) athologist Signature POC Glucose 120 65 - 199 [facility] mg/dL [facility] Comment: [...] Address City/State/ZIP Code Phon e Number [address] POCT Glucose (07/06/2017 7:45 PM EST) athologist Signature POC Glucose 158 65 - 199 [facility] mg/dL [facility] Comment: [...] Address City/State/ZIP Code Phon e Number [address] Potassium (07/06/2017 7:40 PM EST) athologist Signature Potassium 3.9 3.5 - 5.0 [facility] mmol/L [facility] LABORATORY [...] Shahid MD CHEMISTRY ORDERABLES Performing Organization Address City/[facility]/[place] [address] (ABNORMAL) Cardiac Enzymes (LEB/CGP) (07/06/2017 7:40 PM EST) athologist Signature Troponin-T 2.27 (H) 0.00 - [facility] 0.00 ng/mL [facility] [...] additional sample may be indicated. Reference: Third Hurley Definition of Myocardial Infarction. Journal of the [place] [employer] 2012;60:1581-98 CK, Total 93 0 - 200 unit/L [facility] LABOR[facility]ORY Specimen Anatomical Collection Method Collection Time Receive d Time (Source) Location / / Volume Laterality Blood specimen 07/06/2017 7:40 PM 017 7:52 (specimen) EST PM EST Resulting Agency Comment Spec In Lab Daphne Shahid MD CHEMISTRY ORDERABLES Performing Organization Address City/[facility]/[place] [address] (ABNORMAL) POCT Glucose (07/06/2017 7:13 PM EST) athologist Signature POC Glucose 200 (H) 65 - 199 [facility] mg/dL [facility] Comment: Supplemental ranges: <140 mg/dL before meals <180 mg/dL all other times of the day Specimen Anatomical Collection Method Collection Time Receive d Time (Source) Location / / Volume Laterality Blood specimen 07/06/2017 7:13 PM 017 7:13 (specimen) EST PM EST Daphne Shahid MD POINT OF CARE TEST ORDERABLE S Performing Organization Address City/[facility]/[place] [address] (ABNORMAL) APTT (07/06/2017 6:15 PM EST) athologist Signature PTT 94 (H) 25 - 35 sec [facility] Comment: The recommended therapeutic range for fu ll dose, unfractionated heparin at [facility] is 80 ? 114 seconds. The use [...] Shahid MD HEMATOLOGY ORDERABLES Performing Organization Address City/[facility]/[place] [address] (ABNORMAL) POCT Glucose (07/06/2017 6:03 PM EST) athologist Signature POC Glucose 236 (H) 65 - 199 [facility] mg/dL [facility] Comment: [...] Organization Address City/State/[place] [address] (ABNORMAL) POCT Glucose (07/06/2017 5:01 PM EST) athologist Signature POC Glucose 235 (H) 65 - 199 [facility] mg/dL [facility] Comment: [...] Organization Address City/State/[place] [address] (ABNORMAL) POCT Glucose (07/06/2017 4:06 PM EST) athologist Signature POC Glucose 202 (H) 65 - 199 [facility] mg/dL [facility] Comment: [...] Organization Address City/State/[place] [address] POCT Glucose (07/06/2017 2:59 PM EST) athologist Signature POC Glucose 178 65 - 199 [facility] mg/dL [facility] LABORATORY [...] Organization Address City/State/[place] [address] (ABNORMAL) Cardiac Enzymes (LEB/CGP) (07/06/2017 2:10 PM EST) athologist Signature Troponin-T 2.34 (H) 0.00 - [facility] 0.00 ng/mL [facility] [...] additional sample may be indicated. Reference: Third Hurley Definition of Myocardial Infarction. Journal of the [place] [employer] 2012;60:1581-98 CK, Total 101 0 - 200 unit/L [facility] LAB[facility]ORY Specimen Anatomical Collection Method Collection Time Receive d Time (Source) Location / / Volume Laterality Blood specimen 07/06/2017 2:10 PM 017 2:26 (specimen) EST PM EST Resulting Agency Comment Spec In Lab Daphne Shahid MD CHEMISTRY ORDERABLES Performing Organization Address City/State/[place] [address] [facility] [address] POCT Glucose (07/06/2017 2:08 PM EST) athologist Signature POC Glucose 192 65 - 199 [facility] mg/dL [facility] LABORATORY [...] Organization Address City/State/[place] [address] POCT Glucose (07/06/2017 1:04 PM EST) P athologist Signature POC Glucose 162 65 - 199 [place]HA[place] mg/dL [facility] Comment: Supplemental ranges: <140 mg/dL before meals <180 mg/dL all other times of the day Specimen Anatomical Collection Method Collection Time Receive d Time (Source) Location / / Volume Laterality Blood specimen 07/06/2017 1:04 PM 017 1:04 (specimen) EST PM EST Daphne Shahid MD POINT OF CARE TEST ORDERABLE S Performing Organization Address City/[facility]/[place] [address] POCT Glucose (07/06/2017 12:05 PM EST) P athologist Signature POC Glucose 196 65 - 199 [facility] mg/dL [facility] Comment: [...] Organization Address City/State/[place] [address] EKG 12 Lead (07/06/2017 12:00 PM EST) Component Value Ref Range Test Analysis Performed Pathologis t Method Time At Signature Ventricular rate 91 BPM MUSE SYSTEM Atrial Rate 91 BPM MUSE SYSTEM P-R Interval 140 ms MUSE SYSTEM QRS Duration 94 ms MUSE SYSTEM Q-T Interval 394 ms MUSE SYSTEM QTC Calculated 484 ms MUSE SYSTEM (Bezet) Calculated P Hudson 36 degrees MUSE SYSTEM Calculated R Hudson -19 degrees MUSE SYSTEM Calculated T Hudson 104 degrees MUSE SYSTEM INTERPRETATION Normal sinus rhythm MUSE SYSTEM 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) ST & T wave abnormality, consider lateral ischemia Abnormal ECG When compared with ECG of 05-JUL-2017 20:39, No significant change was found Confirmed by MD Luci, Taurus Braun ([id number]) on 07/06/2017 5:07:33 PM Specimen Anatomical Collection Method Collection Time Receive d Time (Source) Location / / Volume Laterality 07/06/2017 12:00 07/06/2017 5:07 PM EST PM EST Daphne Shahid MD ECG ORDERABLES Performing Organization Address City/State/ZIP Code Phon e Number MUSE SYSTEM ABORH Recheck Status (07/06/2017 12:00 PM EST) [facility] Method Time Signature ABORH Type Completed [facility] LABORATORY Specimen Anatomical Collection Method Collection Time Receive d Time (Source) Location / / Volume Laterality Blood specimen 07/06/2017 12:00 7 (specimen) PM EST 12:24 PM EST Resulting Agency Comment Spec In Lab Daphne Shahid MD BLOOD BANK ORDERABLES Performing Organization Address City/[facility]/[place] [address] Antibody screen (07/06/2017 12:00 PM EST) [facility] Method Time Signature Ab Screen Negative [facility] LABORATORY Expires at 07/09/2017 [facility] [id number] on: [facility] LABOR[facility]ORY Specimen Anatomical Collection Method Collection Time Receive d Time (Source) Location / / Volume Laterality Blood specimen 07/06/2017 12:00 7 (specimen) PM EST 12:24 PM EST Resulting Agency Comment Spec In Lab Daphne Shahid MD BLOOD BANK ORDERABLES Performing Organization Address City/[facility]/[place] [address] ABO/Rh Typing (07/06/2017 12:00 PM EST) P athologist Signature ABORh Type O Pos [facility] LABORATORY Specimen Anatomical Collection Method Collection Time Receive d Time (Source) Location / / Volume Laterality Blood specimen 07/06/2017 12:00 7 (specimen) PM EST 12:24 PM EST Resulting Agency Comment Spec In Lab Daphne Shahid MD BLOOD BANK ORDERABLES Performing Organization Address City/[facility]/[place] [address] Prothrombin Time (07/06/2017 11:24 AM EST) athologist Signature PT 13.3 11.8 - 14.0 [facility] LABORATORY INR 1.0 0.9 - 1.1 [place] [...] Shahid MD HEMATOLOGY ORDERABLES Performing Organization Address City/[facility]/[place] [address] (ABNORMAL) APTT (07/06/2017 11:24 AM EST) athologist Signature PTT 52 (H) 25 - 35 sec [facility] Comment: The recommended therapeutic range for fu ll dose, unfractionated heparin at [facility] is 80 ? 114 seconds. The use [...] Address City/State/ZIP Code Phon e Number [address] POCT Glucose (07/06/2017 11:02 AM EST) P athologist Signature POC Glucose 187 65 - 199 [place] mg/dL [facility] Comment: Supplemental ranges: <140 mg/dL before meals <180 mg/dL all other times of the day Specimen Anatomical Collection Method Collection Time Receive d Time (Source) Location / / Volume Laterality Blood specimen 07/06/2017 11:02 7 (specimen) AM EST 11:02 AM EST Daphne Shahid MD POINT OF CARE TEST ORDERABLE S Performing Organization Address City/[facility]/ZIP Code Phon e Number [address] POCT Glucose (07/06/2017 10:18 AM EST) athologist Signature POC Glucose 193 65 - 199 [facility] mg/dL [facility] Comment: [...] Address City/State/ZIP Code Phon e Number [address] POCT Glucose (07/06/2017 9:25 AM EST) P athologist Signature POC Glucose 182 65 - 199 [facility] mg/dL [facility] LABORATORY [...] Address City/State/ZIP Code Phon e Number [address] (ABNORMAL) Cardiac Enzymes (LEB/CGP) (07/06/2017 8:10 AM EST) athologist Signature Troponin-T 2.26 (H) 0.00 - [place] 0.00 ng/mL [facility] LABORATORY [...] additional sample may be indicated. Reference: Third Hurley Definition of Myocardial Infarction. Journal of the [place] [employer] 2012;60:1581-98 CK, Total 124 0 - 200 unit/L [facility] LABOR[facility]ORY Specimen Anatomical Collection Method Collection Time Receive d Time (Source) Location / / Volume Laterality Blood specimen 07/06/2017 8:10 AM 017 8:23 (specimen) EST AM EST Resulting Agency Comment Spec In Lab Daphne Shahid MD CHEMISTRY ORDERABLES Performing Organization Address City/[facility]/ZIP Code Phon e Number [address] Magnesium (07/06/2017 8:10 AM EST) athologist Signature Magnesium 0.84 0.69 - 1.07 [facility] mmol/L [facility] LABORATORY Specimen Anatomical Collection Method Collection Time Receive d Time (Source) Location / / Volume Laterality Blood specimen 07/06/2017 8:10 AM 017 8:21 (specimen) EST AM EST Resulting Agency Comment Spec In Lab Daphne Shahid MD CHEMISTRY ORDERABLES Performing Organization Address City/State/[place] [address] (ABNORMAL) Basic Metabolic Panel (non-fasting) (07/06/2017 8:10 AM EST) P athologist Signature Glucose Lvl 199 65 - 199 [facility] mg/dL [facility] Comment: Diabetes: >=200 mg/dL plus symp toms BUN 16 10 - 20 mg/dL [facility] LABORATORY Creatinine 1.04 0.80 - 1.50 [...] or in patients with acute kidney failure. [email or web address] Specimen Anatomical Collection Method Collection Time Receive d Time (Source) Location / / Volume Laterality Blood specimen 07/06/2017 8:10 AM 017 8:21 (specimen) EST AM EST Resulting Agency Comment Spec In Lab Daphne Shahid MD CHEMISTRY ORDERABLES Performing Organization Address City/[facility]/ZIP Code Phon e Number [address] POCT Glucose (07/06/2017 7:34 AM EST) P athologist Signature POC Glucose 198 65 - 199 [facility] mg/dL [facility] Comment: Supplemental ranges: <140 mg/dL before meals <180 mg/dL all other times of the day Specimen Anatomical Collection Method Collection Time Receive d Time (Source) Location / / Volume Laterality Blood specimen 07/06/2017 7:34 AM 017 7:34 (specimen) EST AM EST Daphne Shahid MD POINT OF CARE TEST ORDERABLE S Performing Organization Address City/[facility]/ZIP Code Phon e Number [address] POCT Glucose (07/06/2017 7:03 AM EST) athologist Signature POC Glucose 181 65 - 199 [facility] LAB[facility]ORY Comment: Supplemental ranges: <140 mg/dL before meals <180 mg/dL all other times of the day Specimen Anatomical Collection Method Collection Time Receive d Time (Source) Location / / Volume Laterality Blood specimen 07/06/2017 7:03 AM 017 7:03 (specimen) EST AM EST Daphne Shahid MD POINT OF CARE TEST ORDERABLE S Performing Organization Address City/[facility]/[place] [address] XR Chest PA or [...] 65 - 199 [facility] mg/dL [facility] LABORATORY [...] Address City/State/[place] [address] POCT Glucose (07/06/2017 5:08 AM EST) athologist Signature POC Glucose 154 65 - 199 [place] mg/dL [facility] LABORATORY [...] Address City/State/ZIP Code Phon e Number [address] POCT Glucose (07/06/2017 4:05 AM EST) athologist Signature POC Glucose 142 65 - 199 [facility] mg/dL [facility] LAB[facility]ORY Comment: [...] Address City/State/ZIP Code Phon e Number [address] POCT Glucose (07/06/2017 3:00 AM EST) athologist Signature POC Glucose 116 65 - 199 [facility] SU mg/dL [facility] LABORATORY [...] Organization Address City/State/[place] [address] Potassium (07/06/2017 2:20 AM EST) athologist Signature Potassium 3.9 3.5 - 5.0 [facility] mmol/L [facility] LABORATORY [...] Address City/State/Z[place] [address] Differential, Automated (07/06/2017 2:20 AM EST) athologist Signature Neutrophils % 72.9 % [facility] LABORATORY Neutr Abs (ANC) 5.53 1.70 - [facility] 6.10 [facility] x10(3)/[facility] LABORATORY Lymphocytes % 16.4 % [facility] LABORATORY Lymphocytes Abs 1.2 0.9 - 3.2 [facility] x10(3)/[facility] LABORATORY Monocytes % 9.4 % [facility] LABORATORY Monocyte Abs 0.7 0.3 - 0.9 [facility] x10(3)/[facility] LABORATORY Eosinophils % 0.5 % [facility] LABORATORY Eosinophils Abs 0.0 0.0 - 0.4 [facility] x10(3)/[facility] LABORATORY Basophils % 0.4 % [facility] LABORATORY Basophils Abs 0.0 0.0 - 0.1 [facility] x10(3)/[facility] LABORATORY Immature [...] Melisa Gran Abs 0.03 0.00 - 0.04 x10(3)/Health system [facility] LABORATORY Specimen Anatomical Collection Method Collection Time Receive d Time (Source) Location / / Volume Laterality Blood specimen 07/06/2017 2:20 AM 017 2:33 (specimen) EST AM EST Resulting Agency Comment Spec In Lab Daphne Shahid MD HEMATOLOGY ORDERABLES Performing Organization Address City/State/[place] [address] (ABNORMAL) Hemogram (07/06/2017 2:20 AM EST) Analysis Performed At Patho logist Time Signature WBC 7.6 4.0 - 9.5 [facility] x10(3)/[facility] LABORATORY RBC 4.52 (L) 4.58 - [facility] 5.54 [facility] x10(6)/[facility] LABORATORY Hemoglobin 13.4 (L) 13.7 - [facility] 16.5 gm/dL [facility] LABORATORY Hematocrit 39.7 (L) 40.5 - [facility] 48.5 % [facility] LABORATORY MCV 87.8 82.9 - [facility] 93.1 [facility] LABORATORY MCH 29.6 27.5 - [facility] 32.1 pg [facility] LABORATORY MCHC 33.8 32.0 - [facility] 35.7 gm/dL [facility] LABORATORY Platelets 189 145 - 357 [facility] x10(3)/[facility] LABORATORY RDWSD 45.6 (H) 36.0 - [facility] 45.0 [facility] LABORATORY RDWCV 14.3 (H) 11.4 - [facility] 13.8 % [facility] LABORATORY MPV 9.1 7.6 - 12.9 [facility] LABORATORY nRBC % Auto 0.0 % [facility] LABORATORY nRBC Abs Auto 0.000 0.000 - [facility] 0.000 [facility] x10(3)/[facility] LABORATORY Specimen Anatomical Collection Method Collection Time Receive d Time (Source) Location / / Volume Laterality Blood specimen 07/06/2017 2:20 AM 017 2:33 (specimen) EST AM EST Resulting Agency Comment Spec In Lab Daphne Shahid MD HEMATOLOGY ORDERABLES Performing Organization Address City/[facility]/[place] [address] (ABNORMAL) APTT (07/06/2017 2:20 AM EST) athologist Signature PTT 52 (H) 25 - 35 sec [facility] LABORATORY Comment: The recommended therapeutic range for fu ll dose, unfractionated heparin at [facility] is 80 ? 114 seconds. The use [...] Shahid MD HEMATOLOGY ORDERABLES Performing Organization Address City/[facility]/[place] [address] POCT Glucose (07/06/2017 2:20 AM EST) athologist [facility] POC Glucose 115 65 - 199 [facility] mg/dL [facility] LABORATORY Comment: Supplemental ranges: <140 mg/dL before meals <180 mg/dL all other times of the day Specimen Anatomical Collection Method Collection Time Receive d Time (Source) Location / / Volume Laterality Blood specimen 07/06/2017 2:20 AM 017 2:20 (specimen) EST AM EST Daphne Shahid MD POINT OF CARE TEST ORDERABLE S Performing Organization Address City/[facility]/[place] [address] (ABNORMAL) Cardiac Enzymes (LEB/CGP) (07/06/2017 2:20 AM EST) athologist [facility] Troponin-T 2.13 (H) 0.00 - [facility] 0.00 ng/mL [facility] [...] additional sample may be indicated. Reference: Third Hurley Definition of Myocardial Infarction. Journal of the [place] [employer] 2012;60:1581-98 CK, Total 129 0 - 200 unit/L [facility] LABORATORY Specimen Anatomical Collection Method Collection Time Receive d Time (Source) Location / / Volume Laterality Blood specimen 07/06/2017 2:20 AM 017 2:33 (specimen) EST AM EST Resulting Agency Comment Spec In Lab Daphne Shahid MD CHEMISTRY ORDERABLES Performing Organization Address City/State/[place] [address] (ABNORMAL) Hemoglobin A1c (07/06/2017 2:20 AM EST) Analysis Performed At Patho logist Time Signature Hemoglobin A1C 6.8 (H) 4.3 - 5.6 [facility] LABORATORY Comment: Reference Range: 4.3 [...] Est Avg Gluc See note mg/dL [place] [facility] LABORATORY Comment: Estimated Average Glucose [...] with hemoglobinopathies. Additional resources are available on [facility] ADA website. Macario HAMMOND, Ruthann J, Deysi R, et al. ??Tr anslating the A1C assay into estimated average glucose values. ??Diabetes Care 2008:31(8):9158-2099. Specimen Anatomical Collection Method Collection Time Receive d Time (Source) Location / / Volume Laterality Blood specimen 07/06/2017 2:20 AM 017 2:34 (specimen) EST AM EST Resulting Agency Comment Spec In Lab Daphne Shahid MD CHEMISTRY ORDERABLES Performing Organization Address City/State/[place] [address] (ABNORMAL) Lipid Panel (07/06/2017 2:20 AM EST) [facility] gist Method Time Signature Chol, Total 150 <=239 [facility] mg/dL [facility] LABORATORY Triglycerides 129 <=199 [place] mg/dL [facility] LABORATORY HDL 32 (L) >=40 [place] mg/dL [facility] LABORATORY LDL Cholesterol 92 <=190 [place] mg/dL [facility] LABORATORY Chol/HDL Ratio 4.7 ratio [facility] LABORATORY Lipid See Note [place] Interpretation [facility] LABORATORY Comment: Lipid management should be guided by a p atient? s ASCVD risk, goals and preferences. ACC/AHA Guidelines recommend high intens ity statin if clinical ASCVD or LDL greater than or equal to 190 mg/dL. http://[employer].com/DYI-UEN-Vlnthcpsa Adults aged 40-75 with LDL 70-189 mg/dL should have their 10 year ASCVD risk estimated with the ACC/AHA ASCVD risk es timator http://tools.acc.org/DWWEM-Zgjm-Dyuewzmp r/ Statin should be discussed if risk [...] Address City/State/[place] [address] POCT Glucose (07/06/2017 1:09 AM EST) athologist Signature POC Glucose 121 65 - 199 [facility] mg/dL [facility] LABORATORY [...] Address City/State/ZIP Code Phon e Number [address] POCT Glucose (07/06/2017 12:06 AM EST) P athologist Signature POC Glucose 147 65 - 199 [place] mg/dL [facility] LABORATORY Comment: Supplemental ranges: <140 mg/dL before meals <180 mg/dL all other times of the day Specimen Anatomical Collection Method Collection Time Receive d Time (Source) Location / / Volume Laterality Blood specimen 07/06/2017 12:06 7 (specimen) AM EST 12:06 AM EST Daphne Shahid MD POINT OF CARE TEST ORDERABLE S Performing Organization Address City/[facility]/[place] [address] (ABNORMAL) POCT Glucose (07/05/2017 10:56 PM EST) P athologist Signature POC Glucose 200 (H) 65 - 199 [facility] mg/dL [facility] LAB[facility]ORY Comment: [...] Organization Address City/State/[place] [address] (ABNORMAL) POCT Glucose (07/05/2017 10:05 PM EST) P athologist Signature POC Glucose 225 (H) 65 - 199 [facility] mg/dL [facility] LAB[facility]ATORY Comment: Supplemental ranges: <140 mg/dL before meals <180 mg/dL all other times of the day Specimen Anatomical Collection Method Collection Time Receive d Time (Source) Location / / Volume Laterality Blood specimen 07/05/2017 10:05 7 (specimen) PM EST 10:05 PM EST Daphne Shaihd MD POINT OF CARE TEST ORDERABLE S Performing Organization Address City/State/[place] [address] (ABNORMAL) POCT Glucose (07/05/2017 9:02 PM EST) P athologist Signature POC Glucose 301 (H) 65 - 199 [facility] mg/dL [facility] LABORATORY [...] Organization Address City/State/[place] [address] XR Chest PA or [...] 474 ms MUSE SYSTEM (Bezet) Calculated P [place] 50 degrees MUSE SYSTEM Calculated R [place] -28 degrees MUSE SYSTEM Calculated T [place] 90 degrees MUSE SYSTEM INTERPRETATION Sinus tachycardia [...] (H) 1.70 - [facility] 6.10 [facility] x10(3)/[facility] L LABORATORY Lymphocytes % 7.0 % [facility] LABORATORY Lymphocytes Abs 0.7 (L) 0.9 - 3.2 [facility] x10(3)/[facility] LABORATORY Monocytes % 3.7 % [facility] LABORATORY Monocyte Abs 0.4 0.3 - 0.9 [facility] x10(3)/[facility] LABORATORY Eosinophils % 0.1 % [facility] LABORATORY Eosinophils Abs 0.0 0.0 - 0.4 [facility] x10(3)/[facility] LABORATORY Basophils % 0.2 % [facility] LABORATORY Basophils Abs 0.0 0.0 - 0.1 [facility] x10(3)/[facility] LABORATORY Immature Gran % 0.60 % [place] [...] Address City/State/Z[place] [address] (ABNORMAL) Hemogram (07/05/2017 8:20 PM EST) Analysis Performed At Patho logist Time Signature WBC 10.3 (H) 4.0 - 9.5 [facility] x10(3)/[facility] LABORATORY RBC 4.64 4.58 - [facility] 5.54 [facility] x10(6)/[facility] LABORATORY Hemoglobin 14.1 13.7 - [facility] 16.5 gm/dL [facility] LABORATORY Hematocrit 40.8 40.5 - [facility] 48.5 % [facility] LABORATORY MCV 87.9 82.9 - [facility] 93.1 fL [facility] LABORATORY MCH 30.4 27.5 - [facility] 32.1 pg [facility] LABORATORY MCHC 34.6 32.0 - [place] 35.7 gm/dL [facility] LABORATORY Platelets 204 145 - 357 [facility] x[facility](3)/[facility] LABORATORY RDWSD 46.1 (H) 36.0 - [place] 45.0 [facility] LABORATORY RDWCV 14.5 (H) 11.4 - [place] 13.8 % [facility] LABORATORY MPV 9.7 7.6 - 12.9 [place] [facility] LABORATORY nRBC % Auto 0.0 % [facility] LABORATORY nRBC Abs Auto 0.000 0.000 - [place] 0.000 [facility] x10(3)/[facility] LABORATORY Specimen Anatomical Collection Method Collection Time Receive d Time (Source) Location / / Volume Laterality Blood specimen 07/05/2017 8:20 PM 017 8:27 (specimen) EST PM EST Resulting Agency Comment Spec In Lab Daphne Shahid MD HEMATOLOGY ORDERABLES Performing Organization Address City/[facility]/[place] [address] APTT (07/05/2017 8:20 PM EST) P athologist Signature PTT 32 25 - 35 sec [facility] LABORATORY Comment: The recommended therapeutic range for fu ll dose, unfractionated heparin at [facility] is 80 ? 114 seconds. The use [...] Organization Address City/State/[place] [address] (ABNORMAL) Cardiac Enzymes (LEB/CGP) (07/05/2017 8:20 PM EST) P athologist Signature Troponin-T 2.11 (H) 0.00 - [facility] 0.00 ng/mL [facility] [...] additional sample may be indicated. Reference: Third Hurley Definition of Myocardial Infarction. Journal of the [place] College [employer]iology 2012;60:1581-98 CK, Total 149 0 - 200 unit/L [facility] LABORATORY Specimen Anatomical Collection Method Collection Time Receive d Time (Source) Location / / Volume Laterality Blood specimen 07/05/2017 8:20 PM 017 8:27 (specimen) EST PM EST Resulting Agency Comment Spec In Lab Daphne Shahid MD CHEMISTRY ORDERABLES Performing Organization Address City/[facility]/ZIP [place] [address] (ABNORMAL) Magnesium (07/05/2017 8:20 PM EST) P athologist Signature Magnesium 0.68 (L) 0.69 - 1.07 [facility] mmol/L [facility] LABORATORY Specimen Anatomical Collection Method Collection Time Receive d Time (Source) Location / / Volume Laterality Blood specimen 07/05/2017 8:20 PM 017 8:27 (specimen) EST PM EST Resulting Agency Comment Spec In Lab Daphne Shahid MD CHEMISTRY ORDERABLES Performing Organization Address City/State/[place] [address] (ABNORMAL) Basic Metabolic Panel (non-fasting) (07/05/2017 8:20 PM EST) P athologist Signature Glucose Lvl 321 (H) 65 - 199 [facility] mg/dL [facility] LABORATORY [...] or in patients with acute kidney failure. http://[employer]/DHnkdep http://[employer]/DHMCnkf Specimen Anatomical Collection Method Collection Time Receive d Time (Source) Location / / Volume Laterality Blood specimen 07/05/2017 8:20 PM 017 8:27 (specimen) EST PM EST Resulting Agency Comment Spec In Lab Daphne Shahid MD CHEMISTRY ORDERABLES Performing Organization Address City/State/ZIP Code Phon e Number [address] (ABNORMAL) POCT Glucose (07/05/2017 7:32 PM EST) P athologist Signature POC Glucose 296 (H) 65 - 199 [facility] mg/dL [facility] LAB[facility]ORY Comment: [...] Address City/State/ZIP Code Phon e Number [address] CARDIAC CATHETERIZATION (07/05/2017 6:47 PM EST) Specimen (Source) Anatomical Location Collection Method / Collectio n Time Received Time / Laterality Volume Narrative CARDIOMAC SYSTEM - 07/05/2017 7:27 PM ES T ?[facility] ? Cardiac Cathete rization/Intervention Report ? Patient Name: Natalya, Gregory ? Procedure Date: 07/05/2017 ? A #: [id number] ? Primary Physician: Clarisa, Jet T ? Case #: [id number] ? File Name: [id number] ? Catheterization Order Number: [id number] ? [facility] ? Final Report [place], [place] ? Patient Name: ? Gregory Natalya ?ID#: ?[id number] ? : ?1945 ? Procedure Date: ? [...] presented with: non -STEMI (w/i 7 days). [place] ?Cardiovascular Society angina c lass was IV. 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 ? Jet Mckenna, M.D. ? Electronically Signed by: Jet Robbins s, M.D. ? Report Finalized: 07/05/2017 ??19:23 ? Report Last Ammended: 10/26/2017 ??10:29 ? Procedure Note Jet Mckenna MD - 10/26/2017Formatt ing of this note might be different from the original. [facility] Cardiac Catheterization/Intervention Re port Patient Name: Gregory Hoang Procedure Date: 07/05/2017 A #: [id number] Primary Physician: Jet Mckenna Case #: [id number] File Name: [id number] Catheterization Order Number: [id number] [facility] Oral Surgeon [facility] Final Report [place], [place] Patient Name: Gregory Hoang ID#: [id number] : 1945 Procedure Date: July 05, [...] presented with: non-STEMI ( w/i 7 days). [place] [employer] angina class was IV. 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 Jet Mckenna M.D. Electronically Signed by: [...] Mccollum ? (Age): 1945(72y) Med Rec#: ? [id number] ?Sex: ?M ? Site Loc: ? [facility] ?Ht / Wt: ??173(cm)/86(kg) Pt. Loc: ?[facility] ? BSA: ?2 Study Date: ?? 07/05/2017 ?Pt. Type: Inpatient Tape: ? Referring: Daphne Shahid ([id number]) Referring: MANDA ALCANTAR Reading: Blade Preston ([id number]) Superintendent Job: Dayami Paula BA, [facility] Diagnosis: *ICD-10-PCS Non-ST elevation (NSTEMI) m yocardial [...] E-wave Vmax ?0.8 ?m/sec ? MV deceleration remr804 ?msec ? MV A-wave Vmax ?0.8 ?m/sec [...] ? Mid-Inferior ?Akinetic ? Mid-Inferoseptal ?Hypokinetic ? [place]-Septal ? Akinetic ? [place]-Anterior ? Hypokinetic ? [place]-Lateral ?Hypokinetic ? [place]-Inferior ? Akinetic ? [place]-Tip ?Akinetic ? This report has been electronically sign ed by: _ Blade Preston MD ? 07/06/2017 08 :53:15 Images reviewed and interpretation verif ied [facility] Cardiac Ultrasound Laboratory Procedure Note Blade Preston MD - 07/06/2017Formatt ing of this note might be different from the original. Procedure: Transthoracic Echocardiogram Patient: NATALYA MCBRIDE(Age): [birth year]72y) Med Rec#: [id number] Sex: M Site Loc: [facility] Ht / Wt: 173(cm)/86(kg) [facility] BSA: 2 Study Date: 07/05/2017 Pt. Type: Inpatie nt Tape: Referring: Daphne Shahid ([id number]) Referring: MANDA ALCANTAR Reading: Blade Preston ([id number]) Superintendent Job: Dayami Paula BA, [facility] Diagnosis: *ICD-10-PCS Non-ST elevation (NSTEMI) m yocardial [...] MV E-wave Vmax 0.8 m/sec MV deceleration [id number] msec MV A-wave Vmax 0.8 m/sec MV [...] Hypokinetic Mid-Posterolateral Hypokinetic Mid-Inferior Akinetic Mid-Inferoseptal Hypokinetic [place]-Septal Akinetic [place]-Anterior Hypokinetic [place]-Lateral Hypokinetic [place]-Inferior Akinetic [place]-Tip Akinetic This report has been electronically sign ed by: _ Blade Preston MD 07/06/2017 08:53:15 Images reviewed and interpretation verif ied [facility] Cardiac Ultrasound Laboratory Daphne Shahid MD ECHO ORDERABLES Performing Organization Address City/State/ZIP Code Phon e Number [facility] Differential, Automated (07/05/2017 4:55 PM EST) P athologist Signature Neutrophils % 77.0 % [facility] LABORATORY Neutr Abs (ANC) 5.26 1.70 - [facility] 6.10 [facility] x10(3)/[facility] LABORATORY Lymphocytes % 13.3 % [facility] LABORATORY Lymphocytes Abs 0.9 0.9 - 3.2 [facility] x10(3)/[facility] LABORATORY Monocytes % 8.2 % [facility] LABORATORY Monocyte Abs 0.6 0.3 - 0.9 [facility] x10(3)/[facility] LABORATORY Eosinophils % 0.7 % [facility] LABORATORY Eosinophils Abs 0.0 0.0 - 0.4 [facility] x10(3)/[facility] LABORATORY Basophils % 0.4 % [facility] LABORATORY Basophils Abs 0.0 0.0 - 0.1 [facility] x10(3)/[facility] LABORATORY Immature [...] Melisa Gran Abs 0.03 0.00 - 0.04 x10(3)/Health system [facility] LABORATORY Specimen Anatomical Collection Method Collection Time Receive d Time (Source) Location / / Volume Laterality Blood specimen 07/05/2017 4:55 PM 017 5:24 (specimen) EST PM EST Resulting Agency Comment Spec In Lab Daphne Shahid MD HEMATOLOGY ORDERABLES Performing Organization Address City/State/[place] [address] (ABNORMAL) Hemogram (07/05/2017 4:55 PM EST) Analysis Performed At Patho logist Time Signature WBC 6.8 4.0 - 9.5 [facility] x10(3)/[facility] LABORATORY RBC 4.67 4.58 - [facility] 5.54 [facility] x10(6)/[facility] LABORATORY Hemoglobin 14.0 13.7 - [facility] 16.5 gm/dL [facility] LABORATORY Hematocrit 41.0 40.5 - [facility] 48.5 % [facility] LABORATORY MCV 87.8 82.9 - [facility] 93.1 [facility] LABORATORY MCH 30.0 27.5 - [facility] 32.1 pg [facility] LABORATORY MCHC 34.1 32.0 - [facility] 35.7 gm/dL [facility] LABORATORY Platelets 197 145 - 357 [facility] x10(3)/[facility] LABORATORY RDWSD 46.4 (H) 36.0 - [facility]0 [facility] LABORATORY RDWCV 14.5 (H) 11.4 - [facility] 13.8 % [facility] LABORATORY MPV 9.7 7.6 - 12.9 [facility] LABORATORY nRBC % Auto 0.0 % [facility] LABORATORY nRBC Abs Auto 0.000 0.000 - [facility] SU 0.000 [facility] x10(3)/[facility] LABORATORY Specimen Anatomical Collection Method Collection Time Receive d Time (Source) Location / / Volume Laterality Blood specimen 07/05/2017 4:55 PM 017 5:24 (specimen) EST PM EST Resulting Agency Comment Spec In Lab Daphne Shahid MD HEMATOLOGY ORDERABLES Performing Organization Address City/[facility]/[place] [address] (ABNORMAL) Cardiac Enzymes (LEB/CGP) (07/05/2017 4:55 PM EST) athologist Signature Troponin-T 1.69 (H) 0.00 - [facility] 0.00 ng/mL [facility] [...] additional sample may be indicated. Reference: Third Hurley Definition of Myocardial Infarction. Journal of the [place] [employer]iology 2012;60:1581-98 CK, Total 191 0 - 200 unit/L [facility] LABORATORY Specimen Anatomical Collection Method Collection Time Receive d Time (Source) Location / / Volume Laterality Blood specimen 07/05/2017 4:55 PM 017 5:56 (specimen) EST PM EST Resulting Agency Comment Spec In Lab Daphne Shahid MD CHEMISTRY ORDERABLES Performing Organization Address City/State/[place] [address] (ABNORMAL) pro-Brain Natriuretic Peptide (07/05/2017 4:55 PM EST) athologist Signature ProBNP 1,598 (H) <=125 [facility] pg/mL [facility] LABORATORY Specimen Anatomical Collection Method Collection Time Receive d Time (Source) Location / / Volume Laterality Blood specimen 07/05/2017 4:55 PM 017 5:24 (specimen) EST PM EST Resulting Agency Comment Spec In Lab Daphne Shahid MD CHEMISTRY ORDERABLES Performing Organization Address City/State/ZIP Code Phon e Number [address] Magnesium (07/05/2017 4:55 PM EST) athologist Signature Magnesium 0.78 0.69 - 1.07 [facility] mmol/L [facility] LABORATORY Specimen Anatomical Collection Method Collection Time Receive d Time (Source) Location / / Volume Laterality Blood specimen 07/05/2017 4:55 PM 017 5:24 (specimen) EST PM EST Resulting Agency Comment Spec In Lab Daphne Shahid MD CHEMISTRY ORDERABLES Performing Organization Address City/[facility]/[place] [address] (ABNORMAL) Basic Metabolic Panel (non-fasting) (07/05/2017 4:55 PM EST) athologist Signature Glucose Lvl 230 (H) 65 - 199 [facility] mg/dL [facility] LABORATORY Comment: Diabetes: >=200 mg/dL plus symp toms BUN 19 10 - 20 mg/dL [facility] LABORATORY Creatinine 1.04 0.80 - 1.50 [...] or in patients with acute kidney failure. [email or web address] Specimen Anatomical Collection Method Collection Time Receive d Time (Source) Location / / Volume Laterality Blood specimen 07/05/2017 4:55 PM 017 5:24 (specimen) EST PM EST Resulting Agency Comment Spec In Lab Daphne Shahid MD CHEMISTRY ORDERABLES Performing Organization Address City/[facility]/[place] [address] (ABNORMAL) APTT (07/05/2017 4:55 PM EST) P athologist Signature PTT 41 (H) 25 - 35 sec [facility] LABORATORY Comment: The recommended therapeutic range for fu ll dose, unfractionated heparin at [facility] is 80 ? 114 seconds. The use [...] Shahid MD HEMATOLOGY ORDERABLES Performing Organization Address City/[facility]/[place] [address] (ABNORMAL) POCT Glucose (07/05/2017 4:53 PM EST) P athologist Signature POC Glucose 208 (H) 65 - 199 [facility] mg/dL [facility] LABORATORY [...] Address City/State/ZIP Code Phon e Number [address] EKG 12 Lead (07/05/2017 4:32 PM EST) Component Value Ref Range Test Analysis Performed Pathologis t Method Time At Signature Ventricular rate 97 BPM MUSE SYSTEM Atrial Rate 97 BPM MUSE SYSTEM P-R Interval 148 ms MUSE SYSTEM QRS Duration 96 ms MUSE SYSTEM Q-T Interval 364 ms MUSE SYSTEM QTC Calculated 462 ms MUSE SYSTEM (Bezet) Calculated P Hudson 48 degrees MUSE SYSTEM Calculated R Hudson -33 degrees MUSE SYSTEM Calculated T Hudson 98 degrees MUSE SYSTEM INTERPRETATION Normal sinus [...] Coronary atherosclerosis of unspecified type of vessel, hoon[place] or graft Cardiomyopathy, ischemic Other specified forms [...] in dextrose 5% 250 mL EST 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
Routine documented in this encounter Care Teams Ssis Developer Relationship Specialty Start Date End Date Lovely Vicente MD PCP - General 04/16/[address] [place] [address] [address] [place] [address] documented as of this encounter
--- OUTSIDE RECORDS SUMMARY | 2022-03-16 08:24 | XMS_ITS | Encounter Summary ---
:1945 Author Organization [employer] [facility] [place] [address] Care Team Providers Name Role Phone MiyaAngela STACIE Primary Care Provider Reason for Visit Reason Comments Urinary Retention Encounter Details Date Type Department Care Team Description 05/16/2013 Follow-Up [facility] at [facility] Blade Smith, Retention of urine [facility] (Primary Dx) [place] [address] UROLOGY DEPT [place] [id number] (Wo rk) Social History Tobacco Use Types [...] MD [facility] DR TADEO [place], [place] [address] (Wo rk) 05/28/2022 Appointment Cardiology Zulma Dolan MD [facility] [place], [place] [address] (Wo rk) 05/28/2022 Laboratory Appointment Lab 05/28/2022 Office Visit Cardiology Zulma Dolan MD [place] [address] Liz Poole PA [facility] [place] [address] 06/10/2022 Office Visit Dermatology Laura Scherer MD [facility] DR TEJA GR[address]DERMAT [place], [place] [address] (Wo rk) documented as of this encounter Visit Diagnoses Diagnosis Retention of urine - Primary Retention of urine, unspecified documented in this encounter Care Teams Aviation Project Manager Relationship Specialty Start Date End Date Angela Holliday APRN PCP - General 01/25/13 04/15/[address] [place] [address] documented as of this encounter
--- OUTSIDE RECORDS SUMMARY | 2022-03-16 08:24 | XMS_ITS | Encounter Summary ---
:1945 Author Organization [facility] [place] [address] Care Team Providers Name Role Phone MiyaAngela STACIE Primary Care Provider Reason for Visit Reason Onset Date Comments Advice Only 03/31/2013 Encounter Details Date Type Department Care Team Description 03/31/2013 Telephone Urology at [facility] Daniele Trejo III, MD Advice Only [facility] [place] [address] [place] [id number] [phone] (Wo rk) Social History Tobacco Use Types [...] Nobles MD [facility] CARDIOLOGY [place], [place] [address] (Wo rk) 05/28/2022 Appointment Cardiology Zulma Dolan MD [facility] [place], [place] [address] (Wo rk) 05/28/2022 Laboratory Appointment Lab 05/28/2022 Office Visit Cardiology Zulma Dolan MD [facility] [place] [address] Liz Poole PA [facility] [place] [address] 06/10/2022 Office Visit Dermatology Laura Scherer MD [facility] DR TEJA GR[address]MAT [place], [place] [address] (Wo rk) documented as of this encounter Visit Diagnoses Not on filedocumented in this encounter Care Teams Work Order Sorting Clerk Relationship Specialty Start Date End Date Angela Holliday APRN PCP - General 01/25/13 04/15/[address] [place] [address] documented as of this encounter
--- OUTSIDE RECORDS SUMMARY | 2022-03-16 08:24 | XMS_ITS | Encounter Summary ---
:1945 Author Organization [facility] [place] [address] Care Team Providers Name Role Phone Angela Holliday APRN Primary Care Provider Encounter Details Date Type Department Care Team Description 04/05/2013 Office Visit Urology at [facility] [place] [address] Social History Tobacco Use Types Packs/Day [...] [facility] [address] [address] (Wo rk) 05/28/2022 Appointment Cardiology Zulma Dolan MD [facility] er [address] [place] 0[address] (Wo rk) 05/28/2022 Laboratory Appointment Lab 05/28/2022 Office Visit Cardiology Zulma Dolan MD [facility] [place] [address] Liz Poole PA [facility] [place] [address] 06/10/2022 Office Visit Dermatology Laura Scherer MD [facility] DR TEJA GR-DERMAT [place], [place] [address] (Wo rk) documented as of this encounter Visit Diagnoses Not on filedocumented in this encounter Care Teams Event Av Operator Relationship Specialty Start Date End Date Angela Holliday APRN PCP - General 01/25/13 04/15/[address] [place] [address] documented as of this encounter
--- OUTSIDE RECORDS SUMMARY | 2022-03-16 08:24 | XMS_ITS | Encounter Summary ---
:1945 Author Organization [facility] [place] [address] Care Team Providers Name Role Phone Angela Holliday APRN Primary Care Provider Reason for Visit Reason Comments Skin Check Encounter Details Date Type Department Care Team Description 07/31/2013 Follow-Up Dermatology at [facility] Forman eoplasm of unspecified nature of bone, soft tissue, and skin (Primary Dx); Abdelrahman HOOPER MD Seborrheic psoriasis- scalp and ingtergl uteal area; [address] [facility] Atypical [place] [address] [facility] [place], [place] [address] (Wo rk) Social History Tobacco [...] CLINIC NOTE Date of service: 07/31/2013 Gregory Ftaima : 1945 Provider: Rigoberto Garcia MD PROBLEM: [...] MD [facility] [address] [place]LE [place], [place] [address] (Wo rk) 05/28/2022 Appointment Cardiology Zulma Dolan MD [facility] [address] [place] [address] (Wo rk) 05/28/2022 Laboratory Appointment Lab 05/28/2022 Office Visit Cardiology Zulma Dolan MD [facility] [place] [address] Liz Poole PA [facility] [place] [address] 06/10/2022 Office Visit Dermatology Laura Scherer MD [facility] DR TEJA GR-DERMAT [place], [place] [address] (Wo rk) Scheduled Orders Name [...] Analysis Performed At [facility] gist Range Method Time Signature Surgical CERNER Pathology ? [facility] Report ? Provider: ?? RIGOBERTO GARCIA III Pt. Name: ?? GREGORY FATIMA ?A ? Acc #: ?[id number] ? Pt. ? Col Date: ?? 07/31/2013 [...] negative controls. ??These ? IHC studies provide [facility] pathologist with adjunctive diagnostic information. ? [...] [facility] ? Provider: ?? RIGOBERTO GARCIA III Pt. Name: ?? GREGORY FATIMA ?A ? Acc #: ?[id number] ? Pt. ? Col Date: ?? 07/31/2013 [...] Organization Address City/State/[place] [address] RAKESH VILLALOBOSENNIUM Specimen to [...] Organization Address City/State/[place] [address] [facility] documented in this encounter Visit Diagnoses Diagnosis Neoplasm of unspecified nature of bone, soft tissue, and skin - Primary Seborrheic psoriasis- scalp and ingtergl uteal area Other psoriasis Atypical nevus of abdominal wall Benign neoplasm of skin of trunk, except scrotum documented in this encounter Care Teams Angle Bender Relationship Specialty Start Date End Date Angela Holliday APRN PCP - General 01/25/13 04/15/[address] [place] [address] documented as of this encounter
--- OUTSIDE RECORDS SUMMARY | 2022-03-16 08:24 | XMS_ITS | Encounter Summary ---
:1945 Author Organization [facility] [place] [address] Care Team Providers Name Role Phone Angela Sotelo APRN Primary Care Provider Encounter Details Date Type Department Care Team Description 01/16/2014 Surgery Gastroenterology at [facility] Nohemi Swann, COLONOSCOPY, [facility] Jorge mcnamara MD POL[place]OM[place], [place] [address] [facility] ([facility] [phone] DR Cintron) GASTROENTEROLOGY DEPT. [place], [place] [address] Social History Tobacco Use Types [...] you need to be checked. Wednesday-[facility] Clinic [phone] 8a-5p Same Day Endo [phone]-8p Otherwise contact [phone] and ask to speak to the court security officer publications inspector Follow up care is a [place] part [...] Swann MD - 01/16/2014 9:49 AM EDT [facility] Operative Note Patient Name: Gregory Fatima : [id number] MR#: [id number] Case Date: 01/16/2014 Surgeon: Surgeon(s) and Role: * Nohemi Swann MD - Primary Preoperative diagnosis: 5 yr surv. Full procedure note is documented under the Procedure section of eDH. documented in this encounter Plan of Treatment Upcoming Encounters Date Type Specialty Care Team Description 03/26/2022 Office Visit Cardiology Vitaliy Nobles MD [facility] [address] [place] [address] (Wo rk) 05/28/2022 Appointment Cardiology Zulma Dolan MD [facility] [place] [address] (Wo rk) 05/28/2022 Laboratory Appointment Lab 05/28/2022 Office Visit Cardiology Zulma Dolan MD [facility] [place] [address] Liz Poole PA [facility] [place] [address] 06/10/2022 Office Visit Dermatology Laura Scherer MD [facility] ER DR TEJA GR-DERMAT [place], [place] [address] (Wo rk) documented as of [...] Surgical Pathology Report (01/16/2014 9:53 AM EDT) [facility] gist Method Time Signature Surgical CERNER Pathology ? [facility] Report ? Provider: ?? NOHEMI SWANN ?Pt. Name: ?? MALICKA RT, GREGORY E ? Acc #: ?[id number] ?Pt. MRN: ?[id number] ? Col Date: ?? 4 ? /Sex: [...] Address City/State/[place] [address] [facility] Specimen to Pathology (surgical or derm) (01/16/2014 9:53 AM EDT) Specimen Anatomical Collection Method Collection Time Receive d Time (Source) Location / / Volume Laterality AP Specimen 01/16/2014 9:53 AM 4 9:53 EDT AM EDT Narrative CERNER MILLENNIUM - 01/16/2014 9:53 AM E DT Specimen requisition ordered. ??Separate Pathology report to follow Nohemi Swann MD PATHOLOGY/CYTOLOGY ORDERABLE S Performing Organization Address City/[facility]/[place] [address] CERNER MILLENNIUM Specimen to [...] MD PATHOLOGY/CYTOLOGY ORDERABLE S Performing Organization Address City/[facility] Code Phon e Number [address] CERNER MILLENNIUM COLONOSCOPY (01/16/2014 7:25 AM EDT) [facility] Method Time Signature COLONOSCOPY [facility] Endoscopy Patient Name: Gregory Fatima ? Procedure Date: 01/16/2014 7:25 AM ? Date of : 1945 ? Age: 68 ? Order #: [id number] ? Procedure: ? Colonoscopy Indications: ? High [...] Laterality 01/16/2014 7:25 AM EDT Angela Sotelo EMOTIONAL SUPPORT TEACHER GENERAL SURGICAL ORDERABLES Performing Organization Address City/State/ZIP [...] Routine documented in this encounter Care Teams Cloth Stretcher Relationship Specialty Start Date End Date Angela Sotelo APRN PCP - General 01/25/13 04/15/[address] [place] [address] [place] [address] documented as of this encounter
--- OUTSIDE RECORDS SUMMARY | 2022-03-16 08:24 | XMS_ITS | Encounter Summary ---
:1945 [place] [address] Care Team Providers Name Role Phone Lovely Vicente MD Primary Care Provider Reason for Visit Reason Onset Date Comments Other 12/09/2016 RESULTS Encounter Details Date Type Department Care Team Description 12/09/2016 Telephone Dermatology at [facility] Halima Cadet MD Other (RESULTS) [address] [facility] [place] [address] [facility]-DER[facility]GY [phone] [place], [place] [address] (Wo rk) Social History [...] EDT Spoke with patient's , Kisha (personal customer engagement representative). I advised her Don's pathology results [...] back. She can be reached back at [phone] documented in this encounter Plan of Treatment Upcoming Encounters Date Type Specialty Care Team Description 03/26/2022 Office Visit Cardiology Vitaliy Nobles MD [facility] [address] TADE[address] [place], [place] [address] (Wo rk) 05/28/2022 Appointment Cardiology Zulma Dolan MD [facility] [place], [place] [address] (Wo rk) 05/28/2022 Laboratory Appointment Lab 05/28/2022 Office Visit Cardiology Zulma Dolan MD [facility] [place] [address] Liz Poole PA [facility] [place] [address] 06/10/2022 Office Visit Dermatology Laura Scherer MD [facility] DR [address]-DERMAT [place], [place] [address] (Wo rk) documented as of this encounter Visit Diagnoses Not on filedocumented in this encounter Care Teams Supervisor Sample Relationship Specialty Start Date End Date Lovely Vicente MD PCP - General 04/16/[address] [place] [address] documented as of this encounter
--- OUTSIDE RECORDS SUMMARY | 2022-03-16 08:24 | XMS_ITS | Encounter Summary ---
:1945 Author Organization [facility] [place] [address] Care Team Providers Name Role Phone MiyaLokeshAngela STACIE Primary Care Provider Reason for Visit Reason Onset Date Comments Post-op Problem 04/05/2013 voiding trial Encounter Details Date Type Department Care Team Description 04/05/2013 Telephone Urology at [facility] Blade Smith, Post-op Problem [facility] (voiding trial) [place] [address] UROLOGY DEPT [place] [phone] (Wo rk) Social History Tobacco Use Types [...] MD [facility] DR TADEO [place], [place] [address] (Wo rk) 05/28/2022 Appointment Cardiology Zulma Dolan MD [facility] [place], [place] [address] (Wo rk) 05/28/2022 Laboratory Appointment Lab 05/28/2022 Office Visit Cardiology Zulma Dolan MD [facility] [place] [address] Liz Poole PA [facility] [place] [address] 06/10/2022 Office Visit Dermatology Laura Scherer MD [facility] DR TEJA GR-DERMAT [place], [place] [address] (Wo rk) documented as of this encounter Visit Diagnoses Not on filedocumented in this encounter Care Teams Boat Garnisher Relationship Specialty Start Date End Date Angela Holliday APRN PCP - General 01/25/13 04/15/[address] [place] [address] documented as of this encounter
--- OUTSIDE RECORDS SUMMARY | 2022-03-16 08:24 | XMS_ITS | Encounter Summary ---
:1945 Author Organization [facility] [place] [address] Care Team Providers Name Role Phone MiyaAngela STACIE Primary Care Provider Encounter Details Date Type Department Care Team Description 04/26/2014 Office Visit Endocrinology at [facility] Albertina Palmer, Papillary thyroid [facility] [place] [address] CENTER [phone] ENDOCRINOLOGY DEPT [place] [address] Social History Tobacco Use Types Packs/Day Years [...] on [place]. Rosalind Palmer Endocrine Staff Physician [facility] Rosalind Palmer MD - 04/26/2014 8:39 AM [...] one yr Rosalind Palmer Endocrine Staff Physician [facility] documented in this encounter Plan of Treatment Upcoming Encounters Date Type Specialty Care Team Description 03/26/2022 Office Visit Cardiology Vitaliy Nobles MD [facility] DR [place], [place] [address] (Wo rk) 05/28/2022 Appointment Cardiology Zulma Dolan MD [facility] [place] [address] (Wo rk) 05/28/2022 Laboratory Appointment Lab 05/28/2022 Office Visit Cardiology Zulma Dolan MD [facility] [place] [address] Liz Poole PA [facility] [place] [address] 06/10/2022 Office Visit Dermatology Laura Scherer MD [facility] DR TE[address] GR-DERMAT [place], [place] [address] (Wo rk) documented as [...] athologist Signature Thyroglobulin <0.4 <=54.9 CERNER ng/mL [facility] Comment: Interpret with caution. Tg levels [...] than those obtained with T4 withdrawal protocol ([place] BR et al. J Clin Endo Metab 1999;84:0333-6560). Assay performed using the DPC Immulite T [...] Palmer MD CHEMISTRY ORDERABLES Performing Organization Address City/[facility]/[place] [address] CERNER MILLENNIUM (ABNORMAL) TSH (04/26/2014 9:07 AM EDT) P athologist Signature TSH 4.46 (H) 0.27 - 4.20 CERNER mcIU/mL MILLENNIUM Specimen Anatomical Collection Method Collection Time Receive d Time (Source) Location / / Volume Laterality Blood specimen 04/26/2014 9:07 AM 014 9:12 (specimen) EDT AM EDT Resulting Agency Comment Spec In Lab Rosalind Palmer MD CHEMISTRY ORDERABLES Performing Organization Address City/[facility]/[place] [address] CERNER MILLENNIUM documented in this encounter Visit Diagnoses Diagnosis Papillary thyroid carcinoma Malignant neoplasm of thyroid gland documented in this encounter Care Teams Chemist Enzymes Relationship Specialty Start Date End Date Angela Holliday APRN PCP - General 01/25/13 04/15/[address] [place] [address] documented as of this encounter
--- OUTSIDE RECORDS SUMMARY | 2022-03-16 08:24 | XMS_ITS | Encounter Summary ---
:1945 Author Organization [employer] [place] [address] Care Team Providers Name Role Phone Lovely Vicente MD Primary Care Provider Encounter Details Date Type Department Care Team Description 09/03/2016 Office Visit Endocrinology at [facility] Maria Ines Stallings of [facility] MD [place] [address] [place] [address] ENDOCRINOLOGY DEPT [place], [place] [address] Social History Tobacco Use Types [...] to his magnesium pill. LUZ PRESCOTT MD Adult Neuropsychologistbundle wrapper Section of Endocrinology [facility] Luz Prescott MD - 09/03/2016 11:30 AM [...] evidence of recurrence. LUZ PRESCOTT MD Adult Neuropsychologistbundle wrapper Section of Endocrinology [facility] documented in this encounter Plan of Treatment Upcoming Encounters Date Type Specialty Care Team Description 03/26/2022 Office Visit Cardiology Vitaliy Nobles MD [facility] [address] TADEO [place], [place] 0[address] (Wo rk) 05/28/2022 Appointment Cardiology Zulma Dolan MD [facility] [place], [place] [address] (Wo rk) 05/28/2022 Laboratory Appointment Lab 05/28/2022 Office Visit Cardiology Zulma Dolan MD [facility] [place] [address] Liz Poole PA [facility] [place] [address] 06/10/2022 Office Visit Dermatology Laura Scherer MD [facility] DR TEJA GR-DERMAT [facility] [place], [place] 0[address] (Wo rk) documented as of this encounter Results Thyroglobulin (09/07/2017 2:41 PM EST) athologist Signature Thyroglobulin 1.4 <=54.9 KATALINA RYAN ng/mL [facility] Comment: Thyroglobulin levels may be [...] Prescott MD CHEMISTRY ORDERABLES Performing Organization Address City/[facility]/ZIP Code Phon e Number [address] TSH (09/07/2017 2:41 PM EST) P athologist Signature TSH 3.93 0.27 - 4.[address] [facility] mlU/ML [facility] Specimen Anatomical Collection Method Collection Time Receive d Time (Source) Location / / Volume Laterality Blood specimen 09/07/2017 2:41 PM 018 2:46 (specimen) EST PM EST Resulting Agency Comment Spec In Lab Luz Prescott MD CHEMISTRY ORDERABLES Performing Organization Address City/[facility] Phon e Number [address] Thyroglobulin (09/03/2016 11:07 AM EST) P athologist Signature Thyroglobulin <0.4 <=54[address] [facility] ng/mL [facility] Comment: Interpret with caution. Tg [...] than those obtained with T4 withdrawal protocol (Goessel BR et al. J Clin Endo Metab 1999;84:6272-4779). Assay performed using the DPC Immulite T [...] Prescott MD CHEMISTRY ORDERABLES Performing Organization Address City/[facility]/ZIP Code Phon e Number [address] TSH (09/03/2016 11:07 AM EST) P athologist Signature TSH 3.01 0.27 - 4.20 [facility] mcIU/mL [facility] Specimen Anatomical Collection Method Collection Time Receive d Time (Source) Location / / Volume Laterality Blood specimen 09/03/2016 11:07 7 (specimen) AM EST 11:22 AM EST Resulting Agency Comment Spec In Lab Luz Prescott MD CHEMISTRY ORDERABLES Performing Organization Address City/[facility]/[place] [address] documented in this encounter Visit Diagnoses Diagnosis Hx of papillary thyroid carcinoma Personal history of malignant neoplasm o f thyroid documented in this encounter Care Teams Shactor Helper Relationship Specialty Start Date End Date Lovely Vicente MD PCP - General 04/16/15 [address] [place] [address] documented as of this encounter
--- OUTSIDE RECORDS SUMMARY | 2022-03-16 08:24 | XMS_ITS | Encounter Summary ---
:1945 Author Organization [facility] [place] [address] Care Team Providers Name Role Phone Angela Holliday STACIE Primary Care Provider Encounter Details Date Type Department Care Team Description 04/04/2013 Telephone Urology at [facility] Parker Sanchez MD [facility] [place] [address] UROLOGY DEPT [phone] [place], [place] 0[address] (Wo rk) Social History Tobacco [...] Nobles MD [facility] DR CARLYLE [place] 0[address] (Wo rk) 05/28/2022 Appointment Cardiology Zulma Dolan MD [facility] [place], [place] 0[address] (Wo rk) 05/28/2022 Laboratory Appointment Lab 05/28/2022 Office Visit Cardiology Zulma Dolan MD [facility] [place] [address] Liz Poole PA [facility] [place] [address] 06/10/2022 Office Visit Dermatology Laura Scherer MD [facility] DR TEJA GR-DERMAT [place], [place] 0[address] (Wo rk) documented as of this encounter Visit Diagnoses Not on filedocumented in this encounter Care Teams Resident Inspector Relationship Specialty Start Date End Date Angela Holliday APRN PCP - General 01/25/13 04/15/[address] [place] [address] documented as of this encounter
--- OUTSIDE RECORDS SUMMARY | 2022-03-16 08:24 | XMS_ITS | Encounter Summary ---
:1945 Author Organization [facility] [place] [address] Care Team Providers Name Role Phone Lovely Vicente MD Primary Care Provider Reason for Visit Reason Onset Date Comments Referral 10/30/2015 Urgent referral for mac on SIMÓN CHAVIS Encounter Details Date Type Department Care Team Description 10/30/2015 Telephone Ophthalmology at [facility] C Jayson Ruiz Referral (Urgent [facility] MD Grabiel referral for mac on [facility] DR SIMÓN CHAVIS) [place] [address] OPHTHALMOLOGY DEPT. [phone] [place], [place] 0[address] (Wo rk) Social History [...] Nobles MD [facility] CARDIOLOGY [place], [place] 0[address] (Wo rk) 05/28/2022 Appointment Cardiology Zulma Dolan MD [facility] [place], [place] 0[address] (Wo rk) 05/28/2022 Laboratory Appointment Lab 05/28/2022 Office Visit Cardiology Zulma Dolan MD [facility] [place] [address] Liz Poole PA [facility] [place] [address] 06/10/2022 Office Visit Dermatology Laura Scherer MD [facility] DR TEJA GR-DERMAT [place], [place] [address] (Wo rk) documented as of this encounter Visit Diagnoses Not on filedocumented in this encounter Care Teams Heat Treating Operator Relationship Specialty Start Date End Date Lovely Vicente MD PCP - General 04/16/[address] [place] [address] documented as of this encounter
--- OUTSIDE RECORDS SUMMARY | 2022-03-16 08:24 | XMS_ITS | Encounter Summary ---
:1945 Author Organization [facility] [place] [address] Care Team Providers Name Role Phone Lovely Vicente MD Primary Care Provider Encounter Details Date Type Department Care Team Description 11/28/[address] [facility] Rigoberto Garcia III, [address] [place] [address] [facility] [phone] [facility] SIMÓN-DERMAT [place], [place] 0[address] (Wo rk) Social History Tobacco [...] provider. Rigoberto Garcia MD Section of Dermatology [facility] documented in this encounter Plan of Treatment Upcoming Encounters Date Type Specialty Care Team Description 03/26/2022 Office Visit Cardiology Vitaliy Nobles MD [facility] DR THOMAS [place], [place] 0[address] (Wo rk) 05/28/2022 Appointment Cardiology Zulma Dolan MD [facility] Dr [place] [id number] (Wo rk) 05/28/2022 Laboratory Appointment Lab 05/28/2022 Office Visit Cardiology Zulma Dolan MD [place] [id number] Liz Poole PA [facility] [place] [address] 06/10/2022 Office Visit Dermatology Laura Scherer MD [facility] DR TEJA MARIE-DERMAT [place], [place] 0[address] (Wo rk) documented as of this encounter Visit Diagnoses Not on filedocumented in this encounter Care Teams Panel Maker Relationship Specialty Start Date End Date Lovely Vicente MD PCP - General 04/16/[address] [place] [address] documented as of this encounter
--- OUTSIDE RECORDS SUMMARY | 2022-03-16 08:24 | XMS_ITS | Encounter Summary ---
:1945 Author Organization [facility] [place] [address] Care Team Providers Name Role Phone Lovely Vicente MD Primary Care Provider Reason for Visit Reason Comments Follow-up Encounter Details Date Type Department Care Team Description 06/03/2017 Office Visit Dermatology at Rigoberto Forman benign nevi; Abdelrahman HOOPER MD History of melanoma; [address] [facility] History of dysplastic nevus; [place] [address] Skin exam for malignant neoplasm [phone] [facility]DER[facility] [place], [place] [address] Social History Tobacco Use Types [...] Vitaliy Nobles MD [facility] [address] TADEO [place], [place] 0[address] (Wo rk) 05/28/2022 Appointment Cardiology Zulma Dolan MD [facility] Dr [place], [place] [address] (Wo rk) 05/28/2022 Laboratory Appointment Lab 05/28/2022 Office Visit Cardiology Zulma Dolan MD [facility] [place] [address] Liz Poole PA [facility] [place] [address] 06/10/2022 Office Visit Dermatology Laura Scherer MD [facility] DR TEJA GR-DERMAT [place], [place] 0[address] (Wo [...] skin documented in this encounter Care Teams Pharmacy Technician Inpatient Relationship Specialty Start Date End Date Lovely Vicente MD PCP - General 04/16/15 [facility] [address] [place] [address] documented as of this encounter
--- OUTSIDE RECORDS SUMMARY | 2022-03-16 08:24 | XMS_ITS | Encounter Summary ---
:1945 Author Organization [facility] [place] [address] Care Team Providers Name Role Phone Angela Holliday APRN Primary Care Provider Reason for Visit Reason Onset Date Comments Other 03/30/2013 blood in catheter ba g Encounter Details Date Type Department Care Team Description 03/30/2013 Telephone General Surgery at [facility] Janneth Sharma, Other (blood in [facility] RN catheter bag) [place] [address] Social History Tobacco Use Types Packs/Day [...] Nobles MD [facility] [address] TADE[address] [place], [place] 0[address] (Wo rk) 05/28/2022 Appointment Cardiology Zulma Dolan MD [facility] [place], [place] [address] (Wo rk) 05/28/2022 Laboratory Appointment Lab 05/28/2022 Office Visit Cardiology Zulma Dolan MD [facility] [place] [address] Liz Poole PA [facility] [place] [address] 06/10/2022 Office Visit Dermatology Laura Scherer MD [facility] [address] TEJA GR-DERMAT [place], [place] [address] (Wo rk) documented as of this encounter Visit Diagnoses Not on filedocumented in this encounter Care Teams Home Administrator Relationship Specialty Start Date End Date Angela Holliday APRN PCP - General 01/25/13 04/15/[address] [place] [address] documented as of this encounter
--- OUTSIDE RECORDS SUMMARY | 2022-03-16 08:24 | XMS_ITS | Encounter Summary ---
:1945 Author Organization [facility] [place] [address] Care Team Providers Name Role Phone MiyaAngela STACIE Primary Care Provider Encounter Details Date Type Department Care Team Description 11/27/2013 Orders Only Urology at [facility] Blade Smith, Urinary retention [facility] (Primary Dx) [place] [address] UROLOGY DEPT [place] [address] Social History Tobacco Use Types Packs/Day Years Used Date Former Smoker Alcohol Use Standard Drinks/Week Comments No 0 (1 standard drink = 0.6 oz pure alcoho l) Sex Assigned at Date Recorded Not on file documented as of this encounter Plan of Treatment Upcoming Encounters Date Type Specialty Care Team Description 03/26/2022 Office Visit Cardiology Vitaliy Nobles MD [facility] DR TADEO [place], [place] [address] (Wo rk) 05/28/2022 Appointment Cardiology Zulma Dolan MD [facility] er Dr [place], [place] [address] (Wo rk) 05/28/2022 Laboratory Appointment Lab 05/28/2022 Office Visit Cardiology Zulma Dolan MD [facility] [place] [address] Liz Poole PA [facility] [place] [address] 06/10/2022 Office Visit Dermatology Laura Scherer MD [facility] ER DR TEJA GR-DERMAT [place], [place] [address] (Wo rk) documented as of this encounter Results (ABNORMAL) PSA (11/28/2013 8:02 AM EDT) Analysis Performed At [facility] Time Signature PSA Total 4.07 (H) 0.00 - CERNER (Ultrasensitiv 4.00 ng/mL MILLENNIUM e) Specimen Anatomical Collection Method Collection Time Receive d Time (Source) Location / / Volume Laterality Blood specimen 11/28/2013 8:02 AM 014 8:05 (specimen) EDT AM EDT Resulting Agency Comment Spec In Lab Blade Smith MD CHEMISTRY ORDERABLES Performing Organization Address City/State/Z[place] [address] [facility] documented in this encounter Visit Diagnoses Diagnosis Urinary retention - Primary Retention of urine, unspecified documented in this encounter Care Teams Rough Rounder Machine Relationship Specialty Start Date End Date Angela Holliday APRN PCP - General 01/25/13 04/15/[address] [place] [address] documented as of this encounter
--- OUTSIDE RECORDS SUMMARY | 2022-03-16 08:24 | XMS_ITS | Encounter Summary ---
:1945 Author Organization [facility] [place] [address] Care Team Providers Name Role Phone Lovely Vicente MD Primary Care Provider Reason for Visit Reason Onset Date Comments Medication Refill 12/24/2016 Encounter Details Date Type Department Care Team Description 12/24/2016 Refill Endocrinology at [facility] Luz Stallings MD [facility] [place] [address] ENDOCRINOLOGY DEPT [phone] [place], [place] [address] (Wo lissa) Social History Tobacco [...] [facility] [address] CARLYLE [place] [address] (Wo rk) 05/28/2022 Appointment Cardiology Zulma Dolan MD [facility] er Dr [place] [address] (Wo rk) 05/28/2022 Laboratory Appointment Lab 05/28/2022 Office Visit Cardiology Zulma Dolan MD [facility] [place] [address] Liz Poole PA [facility] [place] [address] 06/10/2022 Office Visit Dermatology Laura Scherer MD [facility] ER DR TEJA GR-DERMAT [place], [place] [address] (Wo rk) documented as of this encounter Visit Diagnoses Not on filedocumented in this encounter Care Teams Sales Promotion Director Relationship Specialty Start Date End Date Lovely Vicente MD PCP - General 04/16/[address] [place] [address] documented as of this encounter
--- OUTSIDE RECORDS SUMMARY | 2022-03-16 08:24 | XMS_ITS | Encounter Summary ---
:1945 Author Organization [place] [address] Care Team Providers Name Role Phone Lovely Vicente MD Primary Care Provider Encounter Details Date Type Department Care Team Description 07/05/2017 Telephone Cardiology Kim Galindo MD [facility] [place] [address] CARDIOLOGY DEPT [phone] [place], [place] [address] (Wo rk) Social History Tobacco [...] 1:54pm Referring Provider: Ivania CROWELL) Patient Location: [facility] Presenting Symptoms per OSH: 72 year [...] infarct and elevated troponin, transport patient to [facility] for cath this afternoon and arrhythmia monitoring. Kim Galindo MD Survey Workers Supervisor documented in this encounter Plan of Treatment Upcoming Encounters Date Type Specialty Care Team Description 03/26/2022 Office Visit Cardiology Vitaliy Nobles MD [facility] CARDIOLOGY [place], [place] 0[address] (Wo rk) 05/28/2022 Appointment Cardiology Zulma Dolan MD [facility] [place], [place] 0[address] (Wo rk) 05/28/2022 Laboratory Appointment Lab 05/28/2022 Office Visit Cardiology Zulma Dolan MD [facility] [place] [address] iLz Poole PA [facility] [place] [address] 06/10/2022 Office Visit Dermatology Laura Scherer MD [facility] DR TEJA GR-DERMAT [place], [place] [address] (Wo rk) documented as of this encounter Visit Diagnoses Not on filedocumented in this encounter Care Teams Fish Hatchery Assistant Relationship Specialty Start Date End Date Lovely Vicente MD PCP - General 04/16/[address] [place] [address] documented as of this encounter
--- OUTSIDE RECORDS SUMMARY | 2022-03-16 08:24 | XMS_ITS | Encounter Summary ---
:1945 Author Organization [place] [address] Care Team Providers Name Role Phone Lovely Vicente MD Primary Care Provider Reason for Visit Reason Comments Skin Lesion Encounter Details Date Type Department Care Team Description 11/24/2016 [facility] uncertain behavior [facility] skin; Road IIIMD Pigmented skin lesion of uncertain natur e; [address] [facility] [place] of [place] [address] [facility] SIMÓN-DERMATOLGY [place], [place] [address] Social History Tobacco Use Types [...] or concerns, please call the office at [phone]. If it is after 5PM, or a holiday or weekend, please call [phone] and ask for the Powertrain Engineer on-call. documented in this encounter Progress Notes Nohemi Brown LPN - 11/24/2016 7:45 AM EDT Images from the original note were not included. DERMATOLOGY ESTABLISHED PATIENT CLINIC NOTE Date of service: 11/24/2016 Don Fatima : 1945 Provider: Rigoberto Garcia MD PROBLEM: new spots on his back SKIN HISTORY: Melanoma - 0.98 mm with a Eed Level IV, high on his mid back in 2005 ?? Psoriasis HPI Don Fatima is a 71 y.o. year old male.Established patient of [employer]. Last seen 06/05/16. Here today for new [...] MD [facility] DR CARLYLE [place], [place] [address] (Wo lissa) 05/28/2022 Appointment Cardiology Zulma Dolan MD [facility] Medical [facility] [address] [place] [address] (Wo lissa) 05/28/2022 Laboratory Appointment Lab 05/28/2022 Office Visit Cardiology Zulma Dolan MD [facility] [place] [address] Liz Poole PA [facility] [place] [address] 06/10/2022 Office Visit Dermatology Laura Scherer MD [facility] ER DR [address] RD-DERMAT [place]LOGY [place], [place] [address] (Wo rk) documented as of [...] Test Analysis Performed At [facility] gist Range Method Time Signature Surgical [id number] ?Location: [facility] Report The signing pathologist has (i) examined [...] MD PATHOLOGY/CYTOLOGY ORDERABLE S Performing Organization Address City/[facility]/[place] [address] Specimen to Pathology (NON-OR) [...] MD PATHOLOGY/CYTOLOGY ORDERABLE S Performing Organization Address City/[facility] [place] [address] documented in this encounter Visit Diagnoses Diagnosis Neoplasm of uncertain behavior of skin Pigmented skin lesion of uncertain natur e History of melanoma Personal history of malignant melanoma o f skin documented in this encounter Care Teams Underwater Welder Relationship Specialty Start Date End Date Lovely Vicente MD PCP - General 04/16/[address] [place] [address] documented as of this encounter
--- OUTSIDE RECORDS SUMMARY | 2022-03-16 08:24 | XMS_ITS | Encounter Summary ---
:1945 Author Organization [facility] [place] [address] Care Team Providers Name Role Phone Miya Angela STACIE Primary Care Provider Encounter Details Date Type Department Care Team Description 04/24/2013 Telephone Urology at [facility] Zhen Bowman [place] [address] UROLOGY DEPT [phone] [place], [place] [address] (Wo rk) Social History [...] MD [facility] DR TADEO [place], [place] [address] (Wo rk) 05/28/2022 Appointment Cardiology Zulma Dolan MD [facility] Dr [place], [place] [address] (Wo rk) 05/28/2022 Laboratory Appointment Lab 05/28/2022 Office Visit Cardiology Zulma Dolan MD [facility] [place] [address] Liz Poole PA [facility] [place] [address] 06/10/2022 Office Visit Dermatology Laura Scherer MD [facility] DR TEJA GR-DERMAT [place]LOG[place], [place] [address] (Wo rk) documented as of this encounter Visit Diagnoses Not on filedocumented in this encounter Care Teams Pedicab Driver Relationship Specialty Start Date End Date Angela Holliday APRN PCP - General 01/25/13 04/15/[address] [place] [address] documented as of this encounter
--- OUTSIDE RECORDS SUMMARY | 2022-03-16 08:24 | XMS_ITS | Encounter Summary ---
:1945 Author Organization [facility] [place] [address] Care Team Providers Name Role Phone Lovely Vicente MD Primary Care Provider Reason for Visit Reason Comments Nevus excision dysplastic nevus mi d upper abdomen Encounter Details Date Type Department Care Team Description 12/03/2016 Procedure visit Dermatology at Halima Dubois Dysplastic nevus of Road MD Adrián trunk [address] [facility] [address] [facility] [phone] [address]-DERMATOLGY [place] [address] Social History Tobacco Use Types Packs/Day Years [...] Halima Cordero MD during the day at [phone] Nurse: Mira [phone] Amy After 5 PM and on weekends, please call the hospital number , and ask for the Lithographing Machine Operator superintendent ammunition storage. documented in this encounter Progress Notes Halima Cordero MD - 12/10/2016 5:41 PM EDT Gwendolyn, Excision shows scar, there is no residual of the severely dysplastic nevus. Please notify patient and check on wound healing. Thank you, DTB Halima Cordero MD - 12/03/2016 3:00 PM EDT Images from the original note were not included. Dermatology Procedure note: Attending: Halima Cordero MD Carbide Tool Maker: Mira James LPN Referring MD: Rigoberto Garcia [...] to call the clinic or the on-call toppiece chopper over the weekend. ??? Name of Procedure? [...] Nobles MD [facility] [address] TADEO [place], [place] [address] (Wo rk) 05/28/2022 Appointment Cardiology Zulma Dolan MD [facility] [place], [place] [address] (Wo rk) 05/28/2022 Laboratory Appointment Lab 05/28/2022 Office Visit Cardiology Zulma Dolan MD [facility] [place] [address] Liz Poole PA [facility] [place] [address] 06/10/2022 Office Visit Dermatology Laura Scherer MD [facility] DR TEJA GR-DERMAT [place], [place] [address] (Wo rk) documented as of [...] Patholo gist Range Method Time Signature Surgical [id number] ?Location: [facility] Report The signing pathologist has [...] Clinical Diagnosis: Dysplastic nevus, see previous pathology [id number] SPECIMEN PROCESSING A - Labeled/Fixative: Mid-upper abdomen, [...] Address City/State/[place] [address] Specimen to Pathology (NON-OR) (12/03/2016 3:31 PM EDT) Specimen Anatomical Collection Method Collection Time Receive d Time (Source) Location / / Volume Laterality AP Specimen 12/03/2016 3:31 PM 7 6:27 EDT PM EDT Narrative [facility] - 12/03/2016 6:27 PM EDT Specimen requisition ordered. ??Separate Pathology report to follow Resulting Agency Comment Spec In Lab Halima Cordero MD PATHOLOGY/CYTOLOGY ORDERABLE S Performing Organization Address City/State/[place] [address] documented in this encounter Visit Diagnoses Diagnosis Dysplastic nevus of trunk Benign neoplasm of skin of trunk, except scrotum documented in this encounter Care Teams Livestock Counter Relationship Specialty Start Date End Date Lovely Vicente MD PCP - General 04/16/[address] [place] [address] documented as of this encounter
--- OUTSIDE RECORDS SUMMARY | 2022-03-16 08:25 | XMS_ITS | Encounter Summary ---
:1945 Author Organization [facility] [place] [address] Care Team Providers Name Role Phone Angela Holliday APRN Primary Care Provider Encounter Details Date Type Department Care Team Description 03/30/2013 Telephone General Surgery at [facility] Cliff Nevarez, [place] [address] Social History Tobacco Use Types Packs/Day [...] MD [facility] DR TADEO [place], [place] [address] (Wo rk) 05/28/2022 Appointment Cardiology Zulma Dolan MD [facility] [address] [place], [place] [address] (Wo rk) 05/28/2022 Laboratory Appointment Lab 05/28/2022 Office Visit Cardiology Zulma Dolan MD [facility] [place] [address] Liz Poole PA [facility] [place] [address] 06/10/2022 Office Visit Dermatology Laura Scherer MD [facility] DR TEJA GR-DERMAT [place], [place] [address] (Wo rk) documented as of this encounter Visit Diagnoses Not on filedocumented in this encounter Care Teams Stenciling Machine Tender Relationship Specialty Start Date End Date Angela Holliday APRN PCP - General 01/25/13 04/15/[address] [place] [address] documented as of this encounter
--- OUTSIDE RECORDS SUMMARY | 2022-03-16 08:25 | XMS_ITS | Encounter Summary ---
:1945 Author Organization [facility] [place] [address] Care Team Providers Name Role Phone Angela Holliday APRN Primary Care Provider Encounter Details Date Type Department Care Team Description 03/28/2013 Surgery Main Operating Room Mesha Mcknight, THY[facility]IDECTOMY, [facility] [place] [address] [place] [address] [phone] (Wo rk) Social History Tobacco Use Types [...] please call the General Surgery nurse at [phone], since this may mean that you need morecalcium. Follow-up Appointment: Will be scheduled with Dr. Mcknight in 6 weeks Date and time as well as any required labs will be mailed to you Please call [phone] to confirm date and time of your [...] by calcium supplementation. Phone number for questions: [phone] before 5 PM weekdays [phone] after 5 PM and on weekends/holidays Please follow up with Urology as per their recommendations for Bob removal AttachmentsThe following attachments cannot be sent through Care Everywhere. THYROIDECTOMY: WHAT TO EXPECT AT HOME (CZECH)URINARY CATHETER CARE: AFTER YOUR VISIT (CZECH)documented in this encounter Medications at Time of [...] is a 68 y.o. male presents to [facility] today for total thyroidectomy. See [...] Willams MD - 03/28/2013 3:43 PM EDT [facility] Operative Note Patient Name: Gregory Fatima : [id number] MR#: [id number] Case Date: 03/28/2013 Surgeon: Surgeon(s) and Role: [...] patient was extubated and taken to the [facility] in stable condition. At the [...] Operative Note Patient Name: Gregory Fatima : [id number] MR#: [id number] Case Date: 03/28/2013 Surgeon: Surgeon(s) and Role: [...] MD [facility] DR [place]LE [place], [place] [address] (Wo rk) 05/28/2022 Appointment Cardiology Zulma Dolan MD [facility] [address] [place] [address] (Wo rk) 05/28/2022 Laboratory Appointment Lab 05/28/2022 Office Visit Cardiology Zulma Dolan [place] [address] Liz Poole PA [facility] [place] [address] 06/10/2022 Office Visit Dermatology Laura Scherer MD [facility] ER DR LEZ[address] RD-DERMAT OLOGY [place], [place] 0[address] (Wo rk) documented as of [...] 332 (H) 60 - 199 CERNER mg/dL [facility] Comment: Supplemental ranges: <110 mg/dL before meals <200 mg/dL all other times of the day Specimen Anatomical Collection Method Collection Time Receive d Time (Source) Location / / Volume Laterality Blood specimen 03/29/2013 8:08 AM 013 8:08 (specimen) EDT AM EDT Mesha Mcknight MD POINT OF CARE TEST ORDERABLE S Performing Organization Address City/State/[place] [address] CERNER MILLENNIUM (ABNORMAL) POCT Glucose (03/29/2013 4:04 AM EDT) athologist Signature POC Glucose 247 (H) 60 - 199 CERNER mg/dL [facility] Comment: Supplemental ranges: <110 mg/dL before meals <200 mg/dL all other times of the day Specimen Anatomical Collection Method Collection Time Receive d Time (Source) Location / / Volume Laterality Blood specimen 03/29/2013 4:04 AM 013 4:04 (specimen) EDT AM EDT Mesha Mcknight MD POINT OF CARE TEST ORDERABLE S Performing Organization Address City/State/ZIP Code Phon e Number [address] CERNER MILLENNIUM (ABNORMAL) POCT [...] [facility]ZIP Code Phon e Number [address] CERNER MILLENNIUM (ABNORMAL) POCT [...] [facility]/ZIP Code Phon e Number [address] CERNER MILLENNIUM (ABNORMAL) POCT [...] Address City/State/[place] [address] CERNER MILLENNIUM (ABNORMAL) POCT [...] [facility]/ZIP Code Phon e Number [address] CERNER MILLENNIUM (ABNORMAL) POCT [...] [facility]/ZIP Code Phon e Number [address] CERNER MILLENNIUM (ABNORMAL) POCT Glucose (03/28/2013 2:49 PM EDT) P athologist Signature POC Glucose 319 (H) 60 - 199 CERNER mg/dL [facility] Comment: Supplemental ranges: <110 mg/dL before meals <200 mg/dL all other times of the day Specimen Anatomical Collection Method Collection Time Receive d Time (Source) Location / / Volume Laterality Blood specimen 03/28/2013 2:49 PM 013 2:49 (specimen) EDT PM EDT Mesha Mcknight MD POINT OF CARE TEST ORDERABLE S Performing Organization Address City/[facility]/ZIP Code Phon e Number [address] [facility] Specimen to Pathology (surgical or derm) [...] [facility]/ZIP Code Phon e Number [address] [facility] Pathology Addendum Report (03/28/2013 12:03 PM EDT) Component Value Ref Test Analysis Performed At Patholo gist Range Method Time Signature Addendum CERNER Report ? [facility] ? Provider: ?? MESHA MCKNIGHT Pt. Name: ?? GREGORY FATIMA ? Acc #: ?[id number] ?Pt. MRN: ?[id number] ? Col Date: ?? 03/28/2013 ?/Sex: ?1945,(68 [...] Address City/State/[place] [address] [facility] Surgical Pathology Report (03/28/2013 12:03 PM EDT) Component Value Ref Test Analysis Performed At [facility] Range Method Time Signature Surgical [facility] Pathology ? [facility] Report ? Provider: ?? MESHA MCKNIGHT Pt. Name: ?? GREGORY FATIMA ? Acc #: ?[id number] ?Pt. MRN: ?[id number] ? Col Date: ?? 03/28/2013 ?/Sex: ?1945,(68 [...] of hemorrhage and ? calcifications. ? [facility] ? Provider: ?? MESHA MCKNIGHT Pt. Name: ?? GREGORY FATIMA ? Acc #: ?[id number] ?Pt. MRN: ?[id number] ? Col Date: ?? 03/28/2013 ?/Sex: ?1945,(68 years),Male ? Rec Date: ?? 03/28/2013 ?LOC: ?[facility] ? SURGICAL PATHOLOGY ? SECTIONS/PROCESSING: It Project Lead sections are subm itted. (R6) ? [...] Address City/State/[place] [address] CERNER MILLENNIUM Frozen Section Report (03/28/2013 12:03 PM EDT) Component Value Ref Test Analysis Performed At [facility] Range Method Time Signature Frozen CERNER Section ? [facility] Report ? Provider: ?? MESHA MCKNIGHT Pt. Name: ?? GREGORY FATIMA ? Acc #: ?[id number] ?Pt. MRN: ?[id number] ? Col Date: ?? 03/28/2013 ?/Sex: ?1945,(68 [...] Address [facility] [place] [address] CERNER MILLENNIUM POCT Glucose [...] CARE TEST ORDERABLE S Performing Organization Address [facility]/ZIP [facility] [place] [address] CERNER MILLENNIUM Specimen to [...] [facility] - [place]/State/ZIP Code Phon e Number [address] [facility] MILLENNIUM Antibody screen (03/28/2013 9:37 AM EDT) [...] [facility]/ZIP Code Phon e Number [address] [facility] ABO/Rh Typing (03/28/2013 9:37 AM EDT) P athologist Signature ABORh Type O Pos [facility] Specimen Anatomical Collection Method Collection Time Receive d Time (Source) Location / / Volume Laterality Blood specimen 03/28/2013 9:37 AM 013 9:37 (specimen) EDT AM EDT Resulting Agency Comment Spec In Lab Mesha Mcknight MD BLOOD BANK ORDERABLES Performing Organization Address City/[facility]/ZIP Code Phon e Number [address] [facility] Differential, Automated (03/28/2013 9:34 AM EDT) P [...] Address City/State/[place] [address] CERNER MILLENNIUM (ABNORMAL) Basic [...] intervals supplied above were not validated at [facility]. Results from pediatri c patients should be [...] City/State/ZIP Code Phon e Number [place] [id number]OS[address] CERNER MILLENNIUM (ABNORMAL) CBC [...] MCHC 33.7 32.0 - CERNER 36.5 gm/dL [facility] Platelets 161 145 - 370 CERNER x10(3)/mcL MILLENNIUM RDWSD 43.7 35.0 - CERNER 46.0 fL ENNIUM RDWCV 14.2 10.9 - CERNER 14.4 % [facility] MPV 9.3 9.0 - 12.0 CERNER fL [facility] Specimen Anatomical Collection Method Collection Time Receive d Time (Source) Location / / Volume Laterality Blood specimen 03/28/2013 9:34 AM 013 9:38 (specimen) EDT AM EDT Resulting Agency Comment Spec In Lab Mesha Mcknight MD HEMATOLOGY ORDERABLES Performing Organization Address City/State/ZIP Code Phon e Number [address] [facility] POCT Glucose (03/28/2013 9:17 AM EDT) athologist Signature POC Glucose 108 60 - 199 CERNER mg/dL [facility] Comment: Supplemental ranges: <110 mg/dL before meals <200 mg/dL all other times of the day Specimen Anatomical Collection Method Collection Time Receive d Time (Source) Location / / Volume Laterality Blood specimen 03/28/2013 9:17 AM 013 9:17 (specimen) EDT AM EDT Mesha Mcknight MD POINT OF CARE TEST ORDERABLE S Performing Organization Address City/[facility]/ZIP Code Phon e Number [address] [facility] Specimen to Pathology (surgical or derm) (03/28/2013 8:55 AM EDT) Specimen Anatomical Collection Method Collection Time Receive d Time (Source) Location / / Volume Laterality AP Specimen 03/28/2013 8:55 AM 3 8:54 EDT AM EDT Narrative [facility] - 03/28/2013 8:55 AM E DT Specimen requisition ordered. ??Separate Pathology report to follow Mesha Mcknight MD PATHOLOGY/CYTOLOGY ORDERABLE S Performing Organization Address City/[facility]/[place] [address] [facility] GRISELDAENNIUM documented in this encounter [...] - Provider: Radha Yao [facility], RN) 2.5 mg, Oral, DAILY, [...] 20 mg (CANCELED) 0900 (Given - Provider: Rahda Chavira RN) 20 mg, Intravenous, DAILY, First [...] override documented in this encounter Care Teams Director Trade Relationship Specialty Start Date End Date Angela Holliday APRN PCP - General 01/25/13 04/15/[address] [place] [address] documented as of this encounter
--- OUTSIDE RECORDS SUMMARY | 2022-03-16 08:25 | XMS_ITS | Encounter Summary ---
:1945 [place] [address] Care Team Providers Name Role Phone MiyaLokeshAngela STACIE Primary Care Provider Encounter Details Date Type Department Care Team Description 03/28/2013 Anesthesia Event Main Operating Room Meredith Calvert MD [facility] [place] [address] [facility] Nolvia Riojas PA [facility] [place] [address] [place] [address] Anesthesia Record Procedure Summary Procedure Name [...] 03/26/2022 Office Visit Cardiology Vitaily Nobles MD [facility] [address] TADEO [place], [place] [address] (Wo rk) 05/28/2022 Appointment Cardiology Zulma Dolan MD [facility] [place], [place] [address] (Wo rk) 05/28/2022 Laboratory Appointment Lab 05/28/2022 Office Visit Cardiology Zulma Dolan MD [facility] [place] [address] Liz Poole PA [facility] [place] [address] 06/10/2022 Office Visit Dermatology Laura Scherer MD [facility] DR TEJA GR-DERMAT [place], [place] 0375 (Wo rk) documented as [...] Routine documented in this encounter Care Teams Loaders Relationship Specialty Start Date End Date Angela Holliday APRN PCP - General 01/25/13 04/15/[address] [place] [address] documented as of this encounter
--- OUTSIDE RECORDS SUMMARY | 2022-03-16 08:25 | XMS_ITS | Encounter Summary ---
:1945 Author Organization [facility] [place] [address] Care Team Providers Name Role Phone Adi Costello MD Primary Care Provider Reason for Visit Reason Comments Annual Exam ckeck his groin and melanoma follow-up Encounter Details Date Type Department Care Team Description 11/21/2010 Follow-Up Dermatology Arik Tipton Melanoma (Primary Dx) [facility] MD [place] [id number] DERMATOLOGY DEPT . 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 His only complaints are leg cramps, skin [...] changes: Arik Tipton MD Section of Dermatology [facility] documented in this encounter Plan of Treatment Upcoming Encounters Date Type Specialty Care Team Description 03/26/2022 Office Visit Cardiology Vitaliy Nobles MD [facility] [address] TADEO [place], [place] 0[address] (Wo rk) 05/28/2022 Appointment Cardiology Zulma Dolan MD [facility] [place], [place] 0[address] (Wo rk) 05/28/2022 Laboratory Appointment Lab 05/28/2022 Office Visit Cardiology Zulma Dolan MD [facility] [place] [address] Liz Poole PA [facility] [place] [address] 06/10/2022 Office Visit Dermatology Laura Scherer MD [facility] DR TEJA GR-DERMAT [place], [place] 0375 (Wo rk) documented as of this encounter Visit Diagnoses Diagnosis Melanoma - Primary Melanoma of skin, site unspecified documented in this encounter Care Teams Agricultural Equipment Operator Relationship Specialty Start Date End Date Adi Costello MD PCP - General 06/17/10 09/21/11 [address] [place] [address] documented as of this encounter
--- OUTSIDE RECORDS SUMMARY | 2022-03-16 08:25 | XMS_ITS | Encounter Summary ---
:1945 Author Organization [facility] [place] [address] Care Team Providers Name Role Phone NeilSom conner STACIE Primary Care Provider Reason for Visit Reason Comments Establish Care OBST GOITER Encounter Details Date Type Department Care Team Description 01/25/2013 Office Visit General Surgery at Manny Mcknight er colloid, toxic, [facility] MD Eliseo nodular (Primary Dx) [facility] [place], [place] GENERAL SURGERY [address] [place], [place] [address] [phone] Social History Tobacco Use Types Packs/Day Years [...] the thyroid gland were obtained using a SonoSiEVault MicroMaxx and an HFL38/13-6 broadband linear array [...] on physical exam. ROS: No H/O asthma, AL, stroke, pulmonary embolus or phlebitis. Comprehensive review [...] agrees to proceed. Will sign in through [facility]. Consent is signed. Send copy to Dr. SOM HOLLIDAY APRN and Elijah Elias MD. documented in this encounter Plan of Treatment Upcoming Encounters Date Type Specialty Care Team Description 03/26/2022 Office Visit Cardiology Vitaliy Nobles MD [facility] DR TADE[address] [place], [place] 0[address] (Wo rk) 05/28/2022 Appointment Cardiology Zulma Dolan MD [facility] [place], [place] 0375 (Wo rk) 05/28/2022 Laboratory Appointment Lab 05/28/2022 Office Visit Cardiology Zulma Dolan MD [facility] [place] [address] Liz Poole PA [facility] [place] [address] 06/10/2022 Office Visit Dermatology Laura Scherer MD [facility] DR TEJA GR-DERMAT [place]LOG[place], [place] 0375 (Wo rk) documented as [...] 406 ms MUSE SYSTEM (Bezet) Calculated P Rainelle 52 degrees MUSE SYSTEM Calculated R Rainelle 0 degrees MUSE SYSTEM Calculated T Rainelle 40 degrees MUSE SYSTEM INTERPRETATION Normal sinus [...] storm documented in this encounter Care Teams Rotogravure Press Operator Relationship Specialty Start Date End Date Som Holliday APRN PCP - General 01/25/13 04/15/[address] [place] [address] documented as of this encounter
--- OUTSIDE RECORDS SUMMARY | 2022-03-16 08:25 | XMS_ITS | Encounter Summary ---
:1945 Author Organization [facility] [place] [address] Care Team Providers Name Role Phone Angela Holliday APRN Primary Care Provider Encounter Details Date Type Department Care Team Description 03/15/2013 Telephone [facility] [place], [place] [address] Social History Tobacco Use Types Packs/Day [...] Nobles MD [facility] [address] TADEO [place], [place] 0375 (Wo rk) 05/28/2022 Appointment Cardiology Zulma Dolan MD [facility] [address] [place], [place] [address] (Wo rk) 05/28/2022 Laboratory Appointment Lab 05/28/2022 Office Visit Cardiology Zulma Dolan MD [facility] [place] [address] Liz Poole PA [facility] [place] [address] 06/10/2022 Office Visit Dermatology Laura Scherer MD [facility] [address] TEJA GR-DERMAT [place], [place] 0375 (Wo rk) documented as of this encounter Visit Diagnoses Not on filedocumented in this encounter Care Teams Internet Site Designer Relationship Specialty Start Date End Date Angela Holliday APRN PCP - General 01/25/13 04/15/[address] [place] [address] documented as of this encounter
--- OUTSIDE RECORDS SUMMARY | 2022-03-16 08:25 | XMS_ITS | Encounter Summary ---
:1945 Author Organization [facility] [place] [address] Care Team Providers Name Role Phone Angela Holliday APRN Primary Care Provider Encounter Details Date Type Department Care Team Description 01/25/2013 Clinical [place] [address] Social History Tobacco Use Types Packs/Day [...] MD [facility] [address] TADEO [place], [place] 0375 (Wo rk) 05/28/2022 Appointment Cardiology Zulma Dolan MD [facility] [place], [place] 0[address] (Wo rk) 05/28/2022 Laboratory Appointment Lab 05/28/2022 Office Visit Cardiology Zulma Dolan MD [facility] [place] [address] Liz Poole PA [facility] [place] [address] 06/10/2022 Office Visit Dermatology Laura Scherer MD [facility] DR TEJA GR-DERMAT [place], [place] [address] (Wo rk) documented as of this encounter Visit Diagnoses Not on filedocumented in this encounter Care Teams Polls Or Surveys Interviewer Relationship Specialty Start Date End Date Angela Holliday APRN PCP - General 01/25/13 04/15/[address] [place] [address] documented as of this encounter
--- OUTSIDE RECORDS SUMMARY | 2022-03-16 08:25 | XMS_ITS | Encounter Summary ---
:1945 [place] [address] Care Team Providers Name Role Phone Holley Hollidayica STACIE Primary Care Provider Encounter Details Date Type Department Care Team Description 03/28/2013 - [facility] ([facility] 03/29/2013 Barbara Gomes MD Dx) [facility] [address]iqu[place] [phone] Social History Tobacco Use Types Packs/Day Years [...] please call the General Surgery nurse at [phone], since this may mean that you need morecalcium. Follow-up Appointment: Will be scheduled with Dr. Mcknight in 6 weeks Date and time as well as any required labs will be mailed to you Please call [phone] to confirm date and time of your [...] by calcium supplementation. Phone number for questions: [phone] before 5 PM weekdays [phone] after 5 PM and on weekends/holidays Please follow up with Urology as per their recommendations for Bob removal AttachmentsThe following attachments cannot be sent through Care Everywhere. THYROIDECTOMY: WHAT TO EXPECT AT HOME (SOMALI)URINARY CATHETER CARE: AFTER YOUR VISIT (SOMALI)documented in this encounter Medications at Time of [...] thyroidectomy. documented in this encounter Procedure Notes Zhne Bowman - 03/28/2013 2:19 PM EDT Urology [...] Willams MD - 03/28/2013 3:43 PM EDT [facility] Operative Note Patient Name: Gregory Fatima : [id number] MR#: [id number] Case Date: 03/28/2013 Surgeon: Surgeon(s) and Role: [...] Operative Note Patient Name: Gregory Fatima : [id number] MR#: [id number] Case Date: 03/28/2013 Surgeon: Surgeon(s) and Role: [...] Vitaliy Nobles MD [facility] [address] [place], [place] [address] (Wo rk) 05/28/2022 Appointment Cardiology Zulma Dolan MD [facility] [address] [place] [address] (Wo rk) 05/28/2022 Laboratory Appointment Lab 05/28/2022 Office Visit Cardiology Zulma Dolan MD [facility] [place] [address] Liz Poole PA [facility] [place] [address] 06/10/2022 Office Visit Dermatology Laura Scherer MD [facility] DR [address]-DERMAT OLOGY [employer] [employer], [place] [address] (Wo rk) documented as of [...] 332 (H) 60 - 199 CERNER mg/dL [facility] Comment: Supplemental ranges: <110 mg/dL before meals <200 mg/dL all other times of the day Specimen Anatomical Collection Method Collection Time Receive d Time (Source) Location / / Volume Laterality Blood specimen 03/29/2013 8:08 AM 013 8:08 (specimen) EDT AM EDT Mesha Mcknight MD POINT OF CARE TEST ORDERABLE S Performing Organization Address City/State/[place] [address] CERNER MILLENNIUM (ABNORMAL) POCT Glucose (03/29/2013 4:04 AM EDT) athologist Signature POC Glucose 247 (H) 60 - 199 CERNER mg/dL [facility] Comment: Supplemental ranges: <110 mg/dL before meals <200 mg/dL all other times of the day Specimen Anatomical Collection Method Collection Time Receive d Time (Source) Location / / Volume Laterality Blood specimen 03/29/2013 4:04 AM 013 4:04 (specimen) EDT AM EDT Mesha Mcknight MD POINT OF CARE TEST ORDERABLE S Performing Organization Address City/State/ZIP Code Phon e Number [address] CERNER MILLENNIUM (ABNORMAL) POCT [...] Address City/[facility]/ZIP Code Phon e Number [address] CERNER MILLENNIUM (ABNORMAL) POCT [...] Address City/[facility]/ZIP Code Phon e Number [address] CERNER MILLENNIUM (ABNORMAL) POCT [...] Organization Address City/State/[place] [address] CERNER MILLENNIUM (ABNORMAL) POCT [...] Address City/[facility]/ZIP Code Phon e Number [address] CERNER MILLENNIUM (ABNORMAL) POCT [...] Address City/[facility]/ZIP Code Phon e Number [address] CERNER MILLENNIUM (ABNORMAL) POCT Glucose (03/28/2013 2:49 PM EDT) P athologist Signature POC Glucose 319 (H) 60 - 199 CERNER mg/dL [facility] Comment: Supplemental ranges: <110 mg/dL before meals <200 mg/dL all other times of the day Specimen Anatomical Collection Method Collection Time Receive d Time (Source) Location / / Volume Laterality Blood specimen 03/28/2013 2:49 PM 013 2:49 (specimen) EDT PM EDT Mesha Mcknight MD POINT OF CARE TEST ORDERABLE S Performing Organization Address City/[facility]/ZIP Code Phon e Number [address] [facility] Specimen to Pathology (surgical or derm) (03/28/2013 12:14 PM EDT) Specimen Anatomical Collection Method Collection Time Receive d Time (Source) Location / / Volume Laterality AP Specimen 03/28/2013 12:14 03/28/2013 PM EDT 12:14 PM EDT Narrative C[facility]ER [facility] - 03/28/2013 12:14 PM EDT Specimen requisition ordered. ??Separate Pathology report to follow Mesha Mcknight MD PATHOLOGY/CYTOLOGY ORDERABLE S Performing Organization Address City/[facility]/ZIP Code Phon e Number [address] [facility] Pathology Addendum Report (03/28/2013 12:03 PM EDT) Component Value Ref Test Analysis Performed At Patholo gist Range Method Time Signature Addendum CERNER Report ? [facility] ? Provider: ?? MESHA MCKNIGHT Pt. Name: ?? GREGORY FATIMA ? Acc #: ?[id number] ?Pt. MRN: ?[id number] ? Col Date: ?? 03/28/2013 ?/Sex: ?1945,(68 [...] Organization Address City/State/[place] [address] [facility] Surgical Pathology Report (03/28/2013 12:03 PM EDT) Component Value Ref Test Analysis Performed At [facility] Range Method Time Signature Surgical [facility] Pathology ? [facility] Report ? Provider: ?? MESHA MCKNIGHT Pt. Name: ?? GREGORY FATIMA ? Acc #: ?[id number] ?Pt. MRN: ?[id number] ? Col Date: ?? 03/28/2013 ?/Sex: ?1945,(68 [...] Name: ?? GREGORY FATIMA ? Acc #: ?[id number] ?Pt. MRN: ?[id number] ? Col Date: ?? 03/28/2013 ?/Sex: ?1945,(68 years),Male ? Rec Date: ?? 03/28/2013 ?LOC: ?[facility] ? SURGICAL PATHOLOGY ? SECTIONS/PROCESSING: Trim Mechanic sections are subm itted. (R6) ? [...] Organization Address City/State/[place] [address] CERNER MILLENNIUM Frozen Section Report (03/28/2013 12:03 PM EDT) Component Value Ref Test Analysis Performed At [facility] Range Method Time Signature Frozen CERNER Section ? [facility] Report ? Provider: ?? MESHA MCKNIGHT Pt. Name: ?? GREGORY FATIMA ? Acc #: ?[id number] ?Pt. MRN: ?[id number] ? Col Date: ?? 03/28/2013 ?/Sex: ?1945,(68 [...] MD PATHOLOGY/CYTOLOGY ORDERABLE S Performing Organization Address [facility] [place] [address] CERNER MILLENNIUM POCT Glucose [...] TEST ORDERABLE S Performing Organization Address [facility]/ZIP [facility] [place] [place] [address] CERNER MILLENNIUM Specimen to [...] MD PATHOLOGY/CYTOLOGY ORDERABLE S Performing Organization Address [facility]/State/ZIP Code Phon e Number [address] [facility] MILLENNIUM Antibody screen (03/28/2013 9:37 AM [...] BLOOD BANK ORDERABLES Performing Organization Address City/[facility]/ZIP Code Phon e Number [address] [facility] ABO/Rh Typing (03/28/2013 9:37 AM EDT) P athologist Signature ABORh Type O Pos [facility] Specimen Anatomical Collection Method Collection Time Receive d Time (Source) Location / / Volume Laterality Blood specimen 03/28/2013 9:37 AM 013 9:37 (specimen) EDT AM EDT Resulting Agency Comment Spec In Lab Mesha Mcknight MD BLOOD BANK ORDERABLES Performing Organization Address City/[facility]/ZIP Code Phon e Number [address] [facility] Differential, Automated (03/28/2013 9:34 AM [...] Organization Address City/State/[place] [address] CERNER MILLENNIUM (ABNORMAL) Basic [...] intervals supplied above were not validated at [facility]. Results from pediatri c patients should be [...] City/State/ZIP Code Phon e Number [place] [id number]OS[address] CERNER MILLENNIUM (ABNORMAL) CBC [...] MCHC 33.7 32.0 - CERNER 36.5 gm/dL [facility] Platelets 161 145 - 370 CERNER x10(3)/mcL MILLENNIUM RDWSD 43.7 35.0 - CERNER 46.0 fL [facility] RDWCV 14.2 10.9 - CERNER 14.4 % [facility] MPV 9.3 9.0 - 12.0 CERNER fL [facility] Specimen Anatomical Collection Method Collection Time Receive d Time (Source) Location / / Volume Laterality Blood specimen 03/28/2013 9:34 AM 013 9:38 (specimen) EDT AM EDT Resulting Agency Comment Spec In Lab Mesha Mcknight MD HEMATOLOGY ORDERABLES Performing Organization Address City/State/ZIP Code Phon e Number [address] [facility] POCT Glucose (03/28/2013 9:17 AM EDT) athologist Signature POC Glucose 108 60 - 199 CERNER mg/dL [facility] Comment: Supplemental ranges: <110 mg/dL before meals <200 mg/dL all other times of the day Specimen Anatomical Collection Method Collection Time Receive d Time (Source) Location / / Volume Laterality Blood specimen 03/28/2013 9:17 AM 013 9:17 (specimen) EDT AM EDT Mesha Mcknight MD POINT OF CARE TEST ORDERABLE S Performing Organization Address City/[facility]/ZIP Code Phon e Number [address] [facility] Specimen to Pathology (surgical or derm) (03/28/2013 8:55 AM EDT) Specimen Anatomical Collection Method Collection Time Receive d Time (Source) Location / / Volume Laterality AP Specimen 03/28/2013 8:55 AM 3 8:54 EDT AM EDT [facility] - 03/28/2013 8:55 AM E DT Specimen requisition ordered. ??Separate Pathology report to follow Mesha Mcknight MD PATHOLOGY/CYTOLOGY ORDERABLE S Performing Organization Address City/[facility]/[place] [address] [facility] documented in [...] RN) 0900 (Given - Provider: Radha Yao [facility], RN) 2.5 mg, Oral, DAILY, First dose [...] Angela Breaux RN) 0900 (Given - Provider: Rdaha christine RN) 25 mg, Oral, 2 TIMES [...] Rice)1120 (Anesthesia Volume Adjustment - Provider: Tessa Rcie)1247 (Anesthesia Volume Adjustment - Provider: Tessa Rice) 1,000 mL, at 100 mL/hr, Intravenous, CON TINUOUS, Starting Wed03/28/13 at 0900, Until Wed03/28/13 at 1715, Day of Surgery (Day of Procedure) lactated ringers infusion (CANCELED) 150 0 (New Bag - Provider: Caim Baxter, VAMSI) 0053 (New Bag - Provider: [...] override documented in this encounter Care Teams Medical Information Specialist Relationship Specialty Start Date End Date Angela Holliday APRN PCP - General 01/25/13 04/15/15 [address] [place] [address] documented as of this encounter
--- OUTSIDE RECORDS SUMMARY | 2022-03-16 08:25 | XMS_ITS | Encounter Summary ---
:1945 Author Organization [facility] Address [facility] [place] [address] Care Team Providers Name Role Phone Unknown Primary Care Provider Unavailable Reason for Visit Reason Comments Skin Check Encounter Details Date Type Department Care Team Description 10/04/2012 Follow-Up Dermatology at Rigoberto Forman soriasis (Primary Dx); Abdelrahman HOOPER MD Neoplasm of unspecified nature of bone, soft tissue, and skin; [address] [facility] Skin lesion of chest wall; [place] [phone] Seborrheic psoriasis- scalp and ingtergl uteal area [phone] [facility]-DERMATOLGY [place], [place] [address] (Wo rk) Social History Tobacco [...] changes: Rigoberto Garcia MD Section of Dermatology [facility] documented in this encounter Plan of Treatment Upcoming Encounters Date Type Specialty Care Team Description 03/26/2022 Office Visit Cardiology Vitaliy Nobles MD [facility] DR TADEO [place], [place] [address] (Wo rk) 05/28/2022 Appointment Cardiology Zulma Dolan MD [facility] [place], [place] [address] (Wo rk) 05/28/2022 Laboratory Appointment Lab 05/28/2022 Office Visit Cardiology Zulma Dolan [place] [facility] [address] Liz Poole PA [facility] [place] [address] 06/10/2022 Office Visit Dermatology Laura Scherer MD [facility] DR TEJA GR-DERMAT OLOGY [place], [place] [address] (Wo rk) documented as of [...] Value Ref Test Analysis Performed At [facility] Range Method Time Signature Surgical CERNER Pathology ? [facility] Report ? Provider: ?? DEION III, RIGOBERTO Pt. Name: ?? DON HOANG ?A ? Acc #: ?[id number] ? Pt. ? Col Date: ?? 3 [...] Address City/[facility]/ZIP Code Phon e Number [address] [facility] Specimen to Pathology (NON-OR) (10/04/2012 9:55 AM EDT) Specimen Anatomical Collection Method Collection Time Receive d Time (Source) Location / / Volume Laterality AP Specimen 10/04/2012 9:55 AM 201 3 9:56 EDT AM EDT Narrative [facility] - 10/04/2012 9:56 AM E DT Specimen requisition ordered. ??Separate Pathology report to follow Rigoberto Garcia III, MD PATHOLOGY/CYTOLOGY ORDERABLE S Performing Organization Address City/[facility]/ZIP [facility] [place] [address] [facility] documented in this encounter Visit Diagnoses Diagnosis Psoriasis - Primary Other psoriasis Neoplasm of unspecified nature of bone, soft tissue, and skin Skin lesion of chest wall Unspecified disorder of skin and subcuta neous tissue Seborrheic psoriasis- scalp and ingtergl uteal area Other psoriasis documented in this encounter Care Teams Customer Service Analyst Relationship Specialty Start Date End Date Unknown PCP - General 10/04/12 01/24/13 None documented as of this encounter
--- OUTSIDE RECORDS SUMMARY | 2022-03-16 08:25 | XMS_ITS | Encounter Summary ---
:1945 Author Organization [facility] [address] Care Team Providers Name Role Phone Unknown Primary Care Provider Unavailable Reason for Visit Reason Comments Other Encounter Details Date Type Department Care Team Description 10/05/2012 Telephone Dermatology at [facility] Rigoberto Garcia III, [address] [place] [address] [facility] [phone] TE[address] MARIE-DERMAT [place] [id number] (Wo rk) Social History Tobacco Use Types [...] Nobles MD [facility] DR TADEO [place], [place] [address] (Wo rk) 05/28/2022 Appointment Cardiology Zulma Dolan MD [facility] [address] [place], [place] [address] (Wo rk) 05/28/2022 Laboratory Appointment Lab 05/28/2022 Office Visit Cardiology Zulma Dolan MD [facility] [place] [address] Liz Poole PA [facility] [place] [address] 06/10/2022 Office Visit Dermatology Laura Scherer MD [facility] DR [address]-DERMAT [place], [place] [address] (Wo rk) documented as of this encounter Visit Diagnoses Not on filedocumented in this encounter Care Teams Rn Women Services Relationship Specialty Start Date End Date Unknown PCP - General 10/04/12 01/24/13 None documented as of this encounter
--- OUTSIDE RECORDS SUMMARY | 2022-03-16 08:25 | XMS_ITS | Encounter Summary ---
:1945 Author Organization [facility] [place] [address] Care Team Providers Name Role Phone Brody Berrios MD Primary Care Provider Reason for Visit Reason Comments Annual Exam Encounter Details Date Type Department Care Team Description 09/22/2011 Follow-Up Dermatology Arik Tipton Psoriasis (Primary Dx); [facility] MD Jorge Personal history of other malignant neop lasm of skin Drive [place] [phone] DERMATOLOGY DEPT . 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 His only complaints tail bone and scalp [...] Nobles MD [facility] CARDIOLOGY [place], [place] [address] (Wo rk) 05/28/2022 Appointment Cardiology Zulma Dolan MD [facility] [place], [place] [address] (Wo rk) 05/28/2022 Laboratory Appointment Lab 05/28/2022 Office Visit Cardiology Zulam Dolan MD [facility] [place] [address] Liz Poole PA [facility] [place] [address] 06/10/2022 Office Visit Dermatology Laura Scherer MD [facility] DR TEJA GR-DERMAT OLOGY [place], [place] [address] (Wo rk) documented as of this encounter Visit Diagnoses Diagnosis Psoriasis - Primary Other psoriasis Personal history of other malignant neop lasm of skin documented in this encounter Care Teams Computing Machine Operator Relationship Specialty Start Date End Date Brody Berrios MD PCP - General 09/22/11 10/03/[address] [place] [address] documented as of this encounter
--- OUTSIDE RECORDS SUMMARY | 2022-03-16 08:26 | XMS_ITS | Encounter Summary ---
:1945 Author Organization [facility] Address [address] [place] [address] Care Team Providers Name Role Phone Lovely Vicente MD Primary Care Provider Encounter Details Date Type Department Care Team Description 01/01/2020 Lab Requisition [facility] Outr Resulting Lab, Pathology & Laboratory Provider [facility] [address] [place] [address] Social History Tobacco Use Types Packs/Day Years [...] nature PSA 2.1 0.0 - 6.5 ng/mL [facility] LABORA TORY SERVICES Specimen Blood - Venous blood (substance) Narrative [facility]OR[facility] SERVICES - 01/02/2020 10:40 EDT NOTE: Serum PSA concentration should not be in terpreted as absolute evidence for the presence or absence of malignant disease. Assayed on Siemens ADVIA Centaur XPT usi ng chemiluminescent technology.??Values obtained by using different assay methods cannot be used interchangeably. Performing Organization Address City/State/ZIP Code Phon e Number [facility] LABORATORY [address] [place] [address] SERVICES documented in this encounter Visit Diagnoses Not on filedocumented in this encounter Care Teams Sewer Pipe Layer Relationship Specialty Start Date End Date Lovely Vicente MD PCP - General 07/13/14 documented as of this encounter
--- OUTSIDE RECORDS SUMMARY | 2022-03-16 08:26 | XMS_ITS | Encounter Summary ---
:1945 Author Organization [facility] Address [address] [place] [address] Care Team Providers Name Role Phone Lovely Vicente MD Primary Care Provider Encounter Details Date Type Department Care Team Description 01/17/2021 Lab Requisition [facility] Outr Resulting Lab, Pathology & Laboratory Provider [facility] [address] [place] [address] Social History Tobacco Use Types Packs/Day Years [...] nature PSA 2.9 0.0 - 6.5 ng/mL [facility] LABORA TORY SERVICES Specimen Blood - Venous blood (substance) Narrative [facility] LAB[facility]ORY SERVICES - 01/17/2021 17:46 EDT NOTE: Serum PSA concentration should not be in terpreted as absolute evidence for the presence or absence of malignant disease. Assayed on Siemens ADVIA Centaur XPT usi ng chemiluminescent technology.??Values obtained by using different assay methods cannot be used interchangeably. Performing Organization Address City/State/ZIP Code Phon e Number [facility] [address] [place] [address] SERVICES documented in this encounter Visit Diagnoses Not on filedocumented in this encounter Care Teams Chief Informatics Officer Relationship Specialty Start Date End Date Lovely Vicente MD PCP - General 07/13/14 documented as of this encounter
--- OUTSIDE RECORDS SUMMARY | 2022-03-16 08:26 | XMS_ITS | Encounter Summary ---
:1945 Author Organization [facility] Address [address] [place] [address] Care Team Providers Name Role Phone Lovely Vicente MD Primary Care Provider Encounter Details Date Type Department Care Team Description 08/11/2019 Lab Requisition [facility] Unknown, Provider, Pathology & Laboratory [facility] [address] [facility] [place] [address] Social History Tobacco Use Types Packs/Day Years [...] (08/11/2019 14:35 EST) Giardia and Cryptosporidium [facility] Cryptosporidium Antigen Neg and Antigen Neg and CENTER Giardia Antigen Neg Giardia Antigen Neg LABORATORY SERVICES Specimen Feces - Specimen from rectum (specimen) Performing Organization Address City/State/ZIP Code Phon e Number [facility] LAB[facility] [address] [place] [address] SERVICES documented in this encounter Visit Diagnoses Not on filedocumented in this encounter Care Teams [employer] Hemmer Relationship Specialty Start Date End Date Lovely Vicente MD PCP - General 07/13/14 documented as of this encounter
--- OUTSIDE RECORDS SUMMARY | 2022-03-16 08:26 | XMS_ITS | Encounter Summary ---
:1945 Author Organization [facility] Address [address] [place] [address] Care Team Providers Name Role Phone Unknown, Provider Primary Care Provider Encounter Details Date Type Department Care Team Description 07/11/2014 Hospital Encounter [facility] Unknown, Provider, [facility] [address] [place] [address] [place] [address] (Work) [phone] Social History Tobacco Use Types Packs/Day Years Used Date Never Assessed Sex Assigned at Date Recorded Not on file documented as of this encounter Discharge Disposition Disposition Code Departure Means Destination Home or Self [place] documented in this encounter Plan of Treatment Not on filedocumented as of this encounter Visit Diagnoses Not on filedocumented in this encounter Care Teams Windows Server Administrator Relationship Specialty Start Date End Date Unknown, Provider, PCP - General 03/07/14 07/12/14 documented as of this encounter
--- OUTSIDE RECORDS SUMMARY | 2022-03-16 08:26 | XMS_ITS ---
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 Problem Critical ischemia I99.8 Active of lower extremity Problem Atherosclerosis I70.90 Active 3871 6007 Problem Type 2 diabetes E11.628 Active mellitus with other skin complications Problem 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 40 ; Acquired deformi ty of right foot M21.961 ; L luis term current use of i nsulin Z79.4 ; History of art erial bypass of lower extremi ty Z95.828 ; Atherosclerosis I70.90 and History of Lisfr anc amputation of fo ot Z89.439 [address] Feb, Type 2 diabet es mellitus [address] [place], [place] with diabe tic neuropathy, [address] unspecified E11. 40 ; Acquired deformi ty of right foot M21.961 ; L luis term current use of i nsulin Z79.4 ; History of art erial bypass of lower extremi ty Z95.828 ; Atherosclerosis I70.90 and History of Lisfr anc amputation of fo ot Z89.439 [facility] November, [place] [address] [facility] [address] [facility] November, Type 2 [place]ete [place] [address] with diabeti c neuropathy, unspecified E11. 40 ; Acquired deformi ty of right foot M21.961 ; L luis term current use of i nsulin Z79.4 ; History of art erial bypass of lower extremi ty Z95.828 ; Atherosclerosis I70.90 and History of Lisfr anc amputation of fo ot Z89.439 [facility] 10 Aug, 2019 Type 2 [place] [address] with other skin complications E1 1.628 ; Tinea pedis of l eft foot B35.3 ; Type 2 d iabetes mellitus with di abetic neuropathy, unsp ecified E11.40 ; Acquire d deformity of right foot M2 1.961 ; FPC current use of insulin Z79.4 ; History of arterial bypass of lower extremity Z95.828 and Athe rosclerosis I70.90 [facility] Jun, [place] [address] [address] Jun, [place] [address] [address] Jun, Type 2 diabet es mellitus [place], [place] with other skin [address] complications E1 1.628 ; Acquired deformi ty of right foot M21.961 ; T ype 2 diabetes mellitu s with diabetic neuropa thy, unspecified E11. 40 ; kohinoor operator current use of insulin Z79.4 and Histor y of arterial bypass of lower extremity Z95.82 8 [facility] [address] [facility] Feb, Type 2 [place]ete [place] [address] with other s kin complications E1 1.628 ; Acquired deformi ty of right foot M21.961 ; T ype 2 diabetes mellitu s with diabetic neuropa thy, unspecified E11. 40 ; FPC current use of insulin Z79.4 and Histor y of arterial bypass of lower extremity Z95.82 8 [address] November, Tinea pedis o f left foot [place], [place] B35.3 ; Ty pe 2 diabetes [address] mellitus with ot her skin complications E1 1.628 ; Acquired deformi ty of right foot M21.961 ; T ype 2 diabetes mellitu s with diabetic neuropa thy, unspecified E11. 40 ; kohinoor operator current use of insulin Z79.4 and Histor y of arterial bypass of lower extremity Z95.82 8 [facility] 8 [facility] November, [place] [address] [address] Aug, Type 2 diabet es mellitus [place], [place] with diabe tic neuropathy, [address] unspecified E11. 40 ; Acquired deformi ty of right foot M21.961 ; P eripheral arterial disease I73.9 ; History of arter ial bypass of lower extremi ty Z95.828 ; FPC curren t use of insulin Z79.4 an d History of Lisfranc amputat ion of foot Z89.439 UNKNOWN Jul, [facility] 11 Jun, 2018 Type 2 [place]ete [place] [address] with diabeti c neuropathy, unspecified E11. [address] Apr, Edema of both legs R60.0 ; [place], [place] Acquired d eformity of right [address] foot M21.961 ; P eripheral arterial disease I73.9 ; History of arter ial bypass of lower extremi ty Z95.828 ; kohinoor operator curren t use of insulin Z79.4 an d Type 2 diabetes mellitu s with diabetic neuropa thy, unspecified E11. [address] [facility] Mar, [place] [address] [address] Mar, Edema of both legs R60.0 ; [place] Acquired d eformity of right 147[address] foot M21.961 ; P eripheral arterial disease I73.9 ; History of arter ial bypass of lower extremi ty Z95.828 ; kohinoor operator curren t use of insulin Z79.4 an d Type 2 diabetes mellitu s with diabetic neuropa thy, unspecified E11. 40 [facility] Feb, Edema of both legs R60.0 ; [place] [address] Ulcer of lef t calf, limited to breakdown of skin L97.221 ; Acquired defor mity of right foot M21.9 61 ; Peripheral arter ial disease I73.9 ; History of arterial bypass of lower extremity Z95.828 ; Long t erm current use of insulin Z 79.4 and Type 2 diabetes mellitus with diabetic ne uropathy, unspecified E11. 40 [facility] 1 Feb, [place] [address] [facility] Feb, Edema of both legs R60.0 ; [place] [address] Ulcer of rig ht calf, limited to [...] uropathy, unspecified E11. 40 [facility] [address] [facility] Feb, [place] [address] [facility] [address] [facility] [address] Feb, [place] [address] [facility] [address] [facility] [address] Jan, [place] [address] [facility] [address] [facility] [address] Jan, [place] [address] [facility] [address] [facility] [address] Jan, [place] [address] [facility] [address] [facility] Jan, [place] [address] [facility] [address] [facility] [address] [place] [address] [facility] [address] [facility] Dec, [place] [address] [facility] [address] Dec, [place] [address] [facility] [address] [facility] [address] Dec, [place] [address] [facility] [address] [facility] [address] Dec, [place] [address] [facility] Dec, [place] [address] [facility] [address] [facility] [address] Dec, [place] [address] [facility] November, [place] [address] [facility] November, [place] [address] [facility] November, [place] [address] [facility] November, [place] [address] [facility] November, [place] [address] [facility] November, [place] [address] UNKNOWN November, [facility] [address] November, [place] [address] [facility] November, [place] [address] [facility] [address] [facility] Oct, [place] [address] [facility] Oct, [place], [place] [address] [facility] Oct, [place] [address] [facility] [address] 18 Oct, 2017 [place] [address] [facility] 16 Oct, 2017 [place] [address] [facility] [facility] [address] 16 Oct, 2017 [facility] [facility] [address] [facility] [address] [facility] Oct, [place] [address] [facility] [address] [facility] Oct, [place] [address] [facility] Oct, [place] [address] [facility] [address] Sep, [facility] [address] [facility] Sep, [place] [address] [facility] [address] Sep, [place] [address] [facility] [address] Sep, [place] [address] [facility] [address] Sep, [place] [address] [facility] [address] Sep, Critical ischemi a of lower [place] [address] extremity I 99.8 ; Local infection of the skin and subcutaneous tis lindsey, unspecified L08. 9 and Type 2 diabetes mellitu s with other skin complicatio ns E11.628 [facility] [address] [facility] Sep, [place] [address] [facility] [address] [facility] [address] Sep, [place] [address] [facility] [address] [facility] [address] [address] Sep, [place] [address] [facility] [address] [facility] 14 Sep, [address] [place] [address] [facility] Sep, [place] [address] [facility] [address] [facility] Sep, [place] [address] [facility] [address] [facility] Sep, [place] [address] [facility] [address] [facility] Sep, [place] [address] [facility] [address] [facility] [address] Aug, [place] [address] [facility] [address] Aug, [facility] [address] [facility] [address] Aug, [place] [address] SURG[facility] [address] [facility] Aug, [place] [address] SUR[facility] [address] [facility] Aug, [place] [address] [facility] [address] [facility] Aug, [place] [address] ORTHOPEDIC OFFICE [address] [facility] Aug, Pre-op exam Z01.818 [place] [address] [facility] [address] [facility] Aug, [place] [address] [facility] Aug, [place] [address] [facility] [address] [facility] Aug, [place] [address] IMMUNIZATIONS No Known Immunizations SOCIAL HISTORY Qualifiers [...] subcutaneously 22 24h Active units/mL daily Pen [place] Active Ciclopirox Externally Twice 1 application 12h [...] For Report MR Lower Ext R w/o ([id number]) 2017-09-16 See Below For Report CR C-ARM [...] A1c 03/04/18 - 6.7, [facility] [facility], f/u - bilateral leg edema, Pt [...] at wound center,lab work done 03/07/2018 @ [facility], Patient came in with tubigrip bilateral , wound clin est, wound clinest, Wound CTR-follow up, Wound CTR-follow up, Wound CTR-follow up, Peer to Peer w/ Dr. Espino, Wound CTR-follow up, Wound CTR-follow up, Operator Engineer Documentation, LAB, Wound CTR-follow up, Wound CTR-follow up, Wound CTR-follow up, Wound CTR-follow up, LAB, LAB, Wound CTR- follow up, Wound CTR-follow up, Wound CTR-follow up, Operator Engineer Documentation, [facility], Wound CTR-follow up, Wound CTR-follow up, Pull PICC Line, Wound CTR-follow up, Wound CTR-follow up, LAB, Still taking doxycycline 100mg? , Wound CTR-follow up, Wound CTR-follow up, Wound CTR-follow up, Operator Engineer Documentation, Wound CTR-follow up, Wound CTR-follow up, Call back, Operator Engineer Documentation, Operator Engineer Documentation, Operator Engineer Documentation, Wound CTR-follow up, WCC, Wound CTR-follow up, Wound CTR-follow up, labs, D/C planning, bailey smetatarsal amputation of right foot, LAB, LAB, Wound CTR-NEW Insurance Providers Formerly [facility], [facility] Health Member Patient Patient Patient Patient Patient Subscriber Subscriber Subscriber Group Insurance Plan Plan Plan Plan ID Relationship Address Phone Name Date of ID Name Date of No Type Insurance Insurance Insurance Coverage to Subscriber Address Phone Name Dates SELF PAY ANY STREET SELF PAY self [place] [id number] AFTER BLUE [place] AFTER BLUE [facility] [id number] CROSS MEDICARE 3000 GOFFS MEDICARE self G[place] [id number] [facility] [id number] S-BLUE [phone] S-BLUE [place] [id number] [facility] [place] [address] [facility] [address] [place] [address] [place] OTHER 29 [place] [phone] OTHER [place] [id number] 1^MAIN [employer] [facility] PAYOR [id number]
--- OUTSIDE RECORDS SUMMARY | 2022-03-16 08:26 | XMS_ITS | Encounter Summary ---
:1945 Author Organization [facility] Address [address] [place] [address] Care Team Providers Name Role Phone Lovely Vicente MD Primary Care Provider Encounter Details Date Type Department Care Team Description 04/04/[address] [facility] Outr Resulting Lab, Pathology & Laboratory Provider [facility] [address] [place] [address] Social History Tobacco Use Types Packs/Day Years [...] [facility] Shigella/Enteroinvasive Negative Negative [facility] HN LAB CAMPYLOBACTER PCR Negative Negative [facility] ER LABORATORY SERVICES Shiga Toxin PCR Negative Negative [facility] Specimen Feces - Specimen from rectum (specimen) Performing Organization Address City/State/ZIP Code Phon e Number [facility] [address] [place] [address] SERVICES documented in this encounter Visit Diagnoses Not on filedocumented in this encounter Care Teams Face Cleaner Relationship Specialty Start Date End Date Lovely Vicente MD PCP - General 07/13/14 documented as of this encounter
--- OUTSIDE RECORDS SUMMARY | 2022-03-16 08:26 | XMS_ITS | Encounter Summary ---
:1945 Author Organization [facility] Address [address] [place] [address] Care Team Providers Name Role Phone Unknown, Provider Primary Care Provider Encounter Details Date Type Department Care Team Description 03/05/2014 Results Only [facility] Eris Taylor MD Laboratory Services - [address] [place] [address] [place] [address] [phone] Social History Tobacco Use Types Packs/Day Years Used Date Never Assessed Sex Assigned at Date Recorded Not on file documented as of this encounter Plan of Treatment Not on filedocumented as of this encounter Procedures Procedure Name Priority Date/Time Associated Diagnosis Comme [facility] SURGICAL PATHOLOGY Routine 03/05/2014 10:34 Resul ts [...] ? DON HOANG ? Accession #: ? [id number] ? : ? 1945 (Age: 68) ??M [...] Address City/State/ZIP Code Phon e Number [facility] [address] [place] [address] SERVICES [facility] [address] [place] [address] documented in this encounter Visit Diagnoses Not on filedocumented in this encounter Care Teams Insulation Professional Relationship Specialty Start Date End Date Unknown, Provider, PCP - General 03/07/14 07/12/14 documented as of this encounter
--- OUTSIDE RECORDS SUMMARY | 2022-03-16 08:26 | XMS_ITS | Clinical Summary ---
:1945 Author Organization [facility] Address [address] [place] [address] Care Team Providers Name Role Phone [...] i n the results section. COVID-19 TEST [facility] Today 01/27/2022 14:30 LAB PCR EDT COVID-19 TESTING Routine 01/27/2022 14:30 Results for this EDT procedure are i n the results section. from Last 3 Months Results PSA TOTAL, DIAGNOSTIC (02/20/2022 9:04 EDT) Pathologist Sig nature PSA 2.7 <=6.5 ng/mL [facility] Specimen Blood - Venous blood (substance) Narrative [facility] - 02/20/2022 18:17 EDT NOTE: Serum PSA concentration should not be in terpreted as absolute evidence for the presence or absence of malignant disease. Assayed on Siemens ADVIA Centaur XPT usi ng chemiluminescent technology.??Values obtained by using different assay methods cannot be used interchangeably. Performing Organization Address City/State/ZIP Code Phon e Number [facility] [address] [place] [address] SERVICES COVID-19 TEST [facility] LAB PCR (01/27/2022 14:30 EDT) Specimen Swab Performing Organization Address City/[facility]/ZIP Code Phon e Number [facility] [address] [place] [address] SERVICES COVID-19 TESTING (01/27/2022 14:30 EDT) COVID-19 [...] performed using the meliton SARS-CoV-2 assay ([employer] on the Meliton 6800 System Performing Lab Meliton 6800 [facility] Lab [facility] Specimen Swab Performing Organization Address City/[facility]/ZIP Code Phon e Number [facility] [address] [place] [address] SERVICES from Last 3 Months Care Teams Metal Cut Off Saw Tender Relationship Specialty Start Date End Date Lovely Vicente MD PCP - General 07/13/14
--- OUTSIDE RECORDS SUMMARY | 2022-03-16 08:26 | XMS_ITS | Encounter Summary ---
:1945 Author Organization [facility] Address [address] [place] [address] Care Team Providers Name Role Phone Unknown, Provider Primary Care Provider Encounter Details Date Type Department Care Team Description 07/11/2014 Results Only [facility] Shruthi Horowitz MD Laboratory Services - [address] [place] [address] [place] [address] 0 [facility] [place] [address] [phone] Social History Tobacco Use Types Packs/Day Years Used Date Never Assessed Sex Assigned at Date Recorded Not on file documented as of this encounter Plan of Treatment Not on filedocumented as of this encounter Procedures Procedure Name Priority Date/Time Associated Diagnosis Comme [facility] SURGICAL PATHOLOGY Routine 07/11/2014 8:55 EST Re sults for this procedure are i n the results section. documented in this encounter Results SURGICAL PATHOLOGY (07/11/2014 8:55 EST) Pathology Report: SURGICAL PATHOLOGY REPORT [facility] Reports generated via electronic interface contain sorin ginal data; LABORATORY however they are lacking the format of the original re port. SERVICES Caution should be taken when reading/interpreting unfo rmatted reports. Name: ? DON HOANG ? Accession #: ? [id number] ? : ? 1945 (Age: 69) ??M [...] 6.5 x 3.0 cm in aggreg ate). Mop Man sections are submitted in 1- 10 (approximately 40% of the specimen is submitted). Viry Nunez 07/12/2014 11:21 AM End of Report Specimen Performing Organization Address City/State/ZIP Code Phon e Number [facility] [address] [place] [address] SERVICES documented in this encounter Visit Diagnoses Not on filedocumented in this encounter Care Teams Form Tamping Machine Operator Relationship Specialty Start Date End Date Unknown, Provider, PCP - General 03/07/14 07/12/14 documented as of this encounter
--- OUTSIDE RECORDS SUMMARY | 2022-03-16 08:26 | XMS_ITS | Encounter Summary ---
:1945 Author Organization [facility] Address [address] [place] [address] Care Team Providers Name Role Phone Lovely Vicente MD Primary Care Provider Encounter Details Date Type Department Care Team Description 04/04/2021 Lab Requisition [facility] Outr Resulting Lab, Pathology & Laboratory Provider [facility] [address] [place] [address] Social History Tobacco Use Types Packs/Day Years [...] (04/03/2021 12:15 EDT) Giardia and Cryptosporidium Cryptosporidium [facility] Cryptosporidium [facility] Neg [facility] Giardia Antigen Neg [place] Antigen Neg LABORATORY SERVICES Specimen Feces - Specimen from rectum (specimen) Performing Organization Address City/State/ZIP Code Phon e Number [facility] [address] [place] [address] SERVICES documented in this encounter Visit Diagnoses Not on filedocumented in this encounter Care Teams Corporate Real Estate Manager Relationship Specialty Start Date End Date Lovely Vicente MD PCP - General 07/13/14 documented as of this encounter
--- OUTSIDE RECORDS SUMMARY | 2022-03-16 08:26 | XMS_ITS | Encounter Summary ---
:1945 Author Organization [facility] Address [address] [place] [address] Care Team Providers Name Role Phone Lovely Vicente MD Primary Care Provider Encounter Details Date Type Department Care Team Description 02/20/2022 Lab Requisition [facility] Outr Resulting Lab, Pathology & Laboratory Provider [facility] [address] [place] [address] Social History Tobacco Use Types Packs/Day Years [...] Pathologist Sig nature PSA 2.7 <=6.5 ng/mL [facility] Specimen Blood - Venous blood (substance) Narrative [facility] - 02/20/2022 18:17 EDT NOTE: Serum PSA concentration should not be in terpreted as absolute evidence for the presence or absence of malignant disease. Assayed on [employer] Centaur XPT usi ng chemiluminescent technology.??Values obtained by using different assay methods cannot be used interchangeably. Performing Organization Address City/State/ZIP Code Phon e Number [facility] [address] [place] [address] SERVICES documented in this encounter Visit Diagnoses Not on filedocumented in this encounter Care Teams Engineering Recruiter Relationship Specialty Start Date End Date Lovely Vicente MD PCP - General 07/13/14 documented as of this encounter
--- OUTSIDE RECORDS SUMMARY | 2022-03-23 09:33 | XMS_ITS | Encounter Summary ---
:1945 Author Organization [facility] [place] [address] Care Team Providers Name Role Phone Lovely Vicente MD Primary Care Provider Reason for Visit Reason Onset Date Comments Medication Refill 03/11/2022 Encounter Details Date Type Department Care Team Description 03/06/2022 Refill Cardiology at [facility] Liz Poole PA Medication Refill [facility] naima [facility] [place] [address] Cardiology Dept [phone] [place], [place] [address] (Wo rk) Social History Tobacco [...] Nobles MD [facility] [address] [place] [address] (Wo rk) 05/28/2022 Appointment Cardiology Zulma Dolan MD [facility] [address] [place], [place] [address] (Wo rk) 05/28/2022 Laboratory Appointment Lab 05/28/2022 Office Visit Cardiology Zulma Dolan MD [facility] [place] [address] Liz Poole PA [facility] [place] [address] 06/10/2022 Office Visit Dermatology Laura Scherer MD [facility] [address] [place], [place] [address] (Wo rk) documented as of this encounter Visit Diagnoses Not on filedocumented in this encounter Care Teams Director Title Relationship Specialty Start Date End Date Lovely Vicente MD PCP - General 04/16/15 [facility] [address] [place] [address] documented as of this encounter
--- OUTSIDE RECORDS SUMMARY | 2022-03-23 09:33 | XMS_ITS | Encounter Summary ---
:1945 Author Organization [facility] [place] [address] Care Team Providers Name Role Phone Lovely Vicente MD Primary Care Provider Encounter Details Date Type Department Care Team Description 02/19/2022 Laboratory Appointment Lab 3L [facility] [place] [id number] Social History Tobacco Use Types Packs/Day Years [...] MD [facility] [address] TADE[address] [place], [place] 0[address] (Wo rk) 05/28/2022 Appointment Cardiology Zulma Dolan MD [facility] [address] [place] [place] [address] (Wo rk) 05/28/2022 Laboratory Appointment Lab 05/28/2022 Office Visit Cardiology Zulma Dolan MD [facility] [place] [address] Liz Poole PA [facility] [place] [address] 06/10/2022 Office Visit Dermatology Laura Scherer MD [facility] ER DR [address]-DERMAT [place], [place] 0[address] (Wo rk) documented as of [...] (ABNORMAL) Differential, Automated (02/19/2022 8:06 AM EDT) [facility] Method Time Signature Neutrophils % 76.0 % [facility] Neutr Abs (ANC) 5.49 1.70 - [facility] 6.10 [facility] x10(3)/[facility] LABORATORY Lymphocytes % 10.8 % [facility] Lymphocytes Abs 0.8 (L) 0.9 - 3.2 [facility] x10(3)/[facility] LABORATORY Monocytes % 10.2 % [facility] Monocyte Abs 0.7 0.3 - 0.9 [facility] x10(3)/[facility] LABORATORY Eosinophils % 1.2 % [facility] Eosinophils Abs 0.1 0.0 - 0.4 [facility] x10(3)/[facility] LABORATORY Basophils % 0.8 % [facility] Basophils Abs 0.1 0.0 - 0.1 [facility] x10(3)/[facility] LABORATORY Immature Gran % 1.00 % [facility] [...] City/State/ZIP Code Phon e Number [place] [id number] HOSPITAL LABORATORY Drive (ABNORMAL) Hemogram (02/19/2022 8:06 AM EDT) Analysis Performed At Patho logist Time Signature WBC 7.2 4.0 - 9.5 [facility] x10(3)/[facility] LABORATORY RBC 4.41 (L) 4.58 - [facility] 5.54 [facility] x10(6)/[facility] LABORATORY Hemoglobin 13.2 (L) 13.7 - [facility] 16.5 g/dL [facility] Hematocrit 40.9 40.5 - [facility] 48.5 % [facility] MCV 92.7 82.9 - [facility] 93.[address] [facility] LABORATORY MCH 29.9 27.5 - [facility] 32.1 pg [facility] MCHC 32.3 32.0 - [facility] 35.7 g/dL [facility] Platelets 191 145 - 357 [facility] x10(3)/[facility] LABORATORY RDWSD 53.6 (H) 36.0 - [facility] 45.[address] [facility] LABORATORY RDWCV 15.6 (H) 11.4 - [facility] 13.8 % [facility] LAB[facility] MPV 8.7 7.6 - 12.9 [facility] LABORATORY nRBC % Auto 0.0 % [facility] nRBC Abs Auto 0.000 0.000 - [facility] 0.000 [facility] x10(3)/[facility] LABORATORY Specimen Anatomical Collection Method Collection Time Receive d Time (Source) Location / / Volume Laterality Blood 02/19/2022 8:06 AM 2 8:09 EDT AM EDT Resulting Agency Comment Spec In Lab Liz BROWN HEMATOLOGY ORDERABLES Performing Organization Address City/[facility]/ZIP Code Phon e Number [address] (ABNORMAL) pro-Brain Natriuretic Peptide [...] Organization Address City/State/[place] [address] (ABNORMAL) Basic Metabolic Panel (non-fasting) (02/19/2022 8:06 AM EDT) P athologist Signature Glucose Lvl 139 65 - 199 [facility] mg/dL [facility] Comment: Diabetes: >=200 mg/dL plus symp toms BUN 31 (H) 10 - 20 mg/dL [facility] LABORATORY Creatinine 1.53 (H) 0.80 - [...] 15 mmol/L [facility] LABORATORY Calcium 9.7 8.5 - 10.5 [...] City/State/[place] [address] documented in this encounter Visit Diagnoses Diagnosis Chronic systolic heart failure documented in this encounter Care Teams Engineering Analyst Relationship Specialty Start Date End Date Lovely Vicente MD PCP - General 04/16/[address] [place] [address] documented as of this encounter
--- OUTSIDE RECORDS SUMMARY | 2022-03-23 09:33 | XMS_ITS | Encounter Summary ---
:1945 Author Organization [facility] Address [facility] [place] [address] Care Team Providers Name Role Phone Lovely Vicente MD Primary Care Provider Reason for Visit Auth/Cert Specialty Diagnoses / Procedures Referred By Contact Refer red To Contact Diagnoses ASCVD (arteriosclerotic cardiovascular disease) [I25.10] Vitaliy Nobles MD [facility] Procedures PRO PERC TRLUML CORONARY STENT W/ANGIO ONE ART/BRANCH CARDIAC CATHETERIZATION STENT PLACEMENT-SINGLE MAJOR CORONARY ARTERY OR BRANCH [facility] [place] [address] Referral ID Status Reason Start Date Expiration Date Visits Requ ested Visits Authorized [id number] 1 1 Encounter Details Date Type Department Care Team Description 01/30/2022 Surgery Polymer Chemist Asa Coulter MD CARDIAC CATHETERIZATION [facility] [place] [address] [place] [address] [phone] (Wo rk) Social History Tobacco Use Types [...] and Clopidogrel. 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 We have made a referral to cardiac rehab. Please see the attached instructions regarding care to your right wrist access site. AttachmentsThe following attachments cannot be sent through Care Everywhere. Coronary Angiogram: Post-op (Irish)documented in this encounter Medications at Time of [...] RN - 01/30/2022 4:[address] [facility] Short Stay Unit Discharge Note All [...] recent PCI presenting for staged PCI to [facility]. The pt states he has been [...] recent PCI presenting for staged PCI to [facility]. 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 I had referred him to cardiac rehab at [facility] last month per HF team. He was waiting until this intervention before starting the program. Reviewed managing angina /use of sl nitroglycerin. Given parameters for home exercise. 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 We discussed short walks several times per day. Will send [facility] his discharge summary from this admission. The patient should be contacted by the Program within 1- 2 weeks from discharge. Brief Op Note - Vitaliy Nobles MD - 01/30/2022 10:19 AM EDT Images from the original note were not included. Formerly [facility] [place] [address] CORONARY ANGIOGRAM AND PERCUTANEOUS CORONARY INTERVENTION REPORT Patient: Don Fatima : 1945 MR number: [id number] Date of Service: 01/30/2022 Senior Receptionist: Vitaliy Nobles MD Fellow: KEYON Elizabeth INDICATION: [...] a long 2.0 x 26 mm [place] TUCKER stent and positioned it at the [...] using a 2.0 x 26 mm [place] TUCKER stent. This completes the revascularization ofall [...] [facility] [address] [place] [address] (Wo rk) 05/28/2022 Appointment Cardiology Zulma Dolan MD [facility] [place] 0[address] (Wo rk) 05/28/2022 Laboratory Appointment Lab 05/28/2022 Office Visit Zulma Garrison MD [facility] [place] [address] Liz Poole PA [facility] [place] [address] 06/10/2022 Office Visit Dermatology Laura Scherer MD [facility] ER DR [address]-DERMAT [facility] [place], [place] [address] (Wo rk) Scheduled Orders Name [...] (ANC) 3.96 1.70 - [facility] 6.10 [facility] x10(3)/[facility] LABORATORY Lymphocytes % 16.3 % [facility] LABORATORY Lymphocytes Abs 0.9 0.9 - 3.[address] [facility] x10(3)/[facility] LABORATORY Monocytes % 10.0 % [facility] LABORATORY Monocyte Abs 0.6 0.3 - 0.[address] [facility] x10(3)/[facility] LABORATORY Eosinophils % 0.5 % [facility] LABORATORY Eosinophils Abs 0.0 0.0 - 0.[address] [facility] x10(3)/[facility] LABORATORY Basophils % 0.5 % [facility] LABORATORY Basophils Abs 0.0 0.0 - 0.1 [place] [address]590(3)/[facility] LABORATORY Immature Gran % 0.90 [...] Organization Address City/State/[place] [address] (ABNORMAL) Hemogram (01/30/2022 2:12 PM EDT) Analysis Performed At Patho logist Time Signature WBC 5.5 4.0 - 9.[address] [facility] x10(3)/[facility] LABORATORY RBC 4.30 (L) 4.58 - [place] 5.54 [facility] x10(6)/[facility] LABORATORY Hemoglobin 12.7 (L) 13.7 - [place] 16.5 g/dL [facility] LABORATORY Hematocrit 39.4 (L) 40.5 - [place] 48.5 % [facility] LABORATORY MCV 91.6 82.9 - [facility] 93.1 [facility] LABORATORY MCH 29.5 27.5 - [place] 32.[address] [facility] LABORATORY MCHC 32.2 32.0 - [place] 35.7 g/dL [facility] LABORATORY Platelets 172 145 - [address] [facility] x10(3)/[facility] LABORATORY RDWSD 54.5 (H) 36.0 - [facility] 45.0 [facility] LABORATORY RDWCV 16.4 (H) 11.4 - [facility] 13.8 % [facility] LABORATORY MPV 9.2 7.6 - 12.9 [facility] LABORATORY nRBC % Auto 0.0 % [facility] LABORATORY nRBC Abs Auto 0.000 0.000 - [facility] 0.000 [facility] x10(3)/[facility] LABORATORY Specimen Anatomical Collection Method Collection Time Receive d Time (Source) Location / / Volume Laterality Blood 01/30/2022 2:12 PM 2 2:37 EDT PM EDT Resulting Agency Comment Spec In Lab Eddi Elizabeth Jr., MD HEMATOLOGY ORDERABLES Performing Organization Address City/State/[place] [address] (ABNORMAL) Basic Metabolic Panel (non-fasting) (01/30/2022 2:12 PM EDT) P athologist Signature Glucose Lvl 163 65 - [address] [facility] mg/dL [facility] LABORATORY Comment: Diabetes: >=200 mg/dL plus symp toms BUN 30 (H) 10 - 20 mg/dL [facility] LABORATORY Creatinine 1.47 0.80 - 1.50 mg/dL [facility] [...] LABORATORY Calcium 9.2 8.5 - 10.5 mg/dL [facility] [...] Organization Address City/State/[place] [address] POCT Glucose (01/30/2022 1:41 PM EDT) athologist Signature POC Glucose 148 65 - [address] [facility] mg/dL [facility] LABORATORY Comment: Supplemental ranges: <140 mg/dL before meals <180 mg/dL all other times of the day Specimen Anatomical Collection Method Collection Time Receive d Time (Source) Location / / Volume Laterality Blood 01/30/2022 1:41 PM 1:41 EDT PM EDT Vitaliy Sandra Nobles MD POINT OF CARE TEST ORDERABLE S Performing Organization Address City/State/ZIP Code Phon e Number [address] POCT Glucose (01/30/2022 10:48 AM EDT) P athologist Signature POC Glucose 193 65 - [address] [facility] mg/dL [facility] LABORATORY Comment: Supplemental ranges: <140 mg/dL before meals <180 mg/dL all other times of the day Specimen Anatomical Collection Method Collection Time Receive d Time (Source) Location / / Volume Laterality Blood 01/30/2022 10:48 01/30/2022 AM EDT 10:48 AM EDT Vitaliy Sandra Nobles MD POINT OF CARE TEST ORDERABLE S Performing Organization Address City/[facility]/[place] [address] EKG 12 Lead (01/30/2022 10:33 AM EDT) Component Value Ref Range Test Analysis Performed Pathologis t Method Time At Signature Ventricular rate 64 BPM MUSE SYSTEM Atrial Rate 64 BPM MUSE SYSTEM P-R Interval 162 ms MUSE SYSTEM QRS Duration 94 ms MUSE SYSTEM Q-T Interval 422 ms MUSE SYSTEM QTC Calculated 435 ms MUSE SYSTEM (Bezet) Calculated P [place] 41 degrees MUSE SYSTEM Calculated R [place] -27 degrees MUSE SYSTEM Calculated T [place] 104 degrees MUSE SYSTEM INTERPRETATION Normal sinus rhythm MUSE SYSTEM Anterolateral infarct (cited on or before 09-DEC-2021) Abnormal ECG When compared with ECG of 10-DEC-2021 11:17, No significant change was found Confirmed by Gary Perez ([id number]) on 01/30/2022 5:57:5 2 PM Specimen Anatomical Collection Method Collection Time Receive d Time (Source) Location / / Volume Laterality 01/30/2022 10:33 01/30/2022 5:57 AM EDT PM EDT Vitaliy Nobles MD ECG ORDERABLES Performing Organization Address City/[facility]/ZIP Code Phon e Number MUSE SYSTEM CARDIAC CATHETERIZATION (01/30/2022 10:16 AM EDT) Specimen (Source) Anatomical Location Collection Method / Collectio n Time Received Time / Laterality Volume Narrative CARDIOMAC SYSTEM - 01/30/2022 2:09 PM ED T ?[facility] ? Cardiac Cathete rization/Intervention Report ? Patient Name: Don Fatima. ? Procedure Date: 01/30/2022 ? A #: [id number] ? Primary Physician: Vitaliy Nobles ? Case #: [id number] ? File Name: [id number] ? Catheterization Order Number: [id number] ? [facility] ? Final Report [place], [place] ? Patient Name: ? Don E. Stewa rt ? ID#: ?[id number] ? : ?1945 ? Procedure Date: ? [...] ?designated as ASA Class III. Th e [facility] clinical frailty scale is 5: Mildly [...] procedure was Urgent. The indication for ?the blood and plasma laboratory assistant visit is stable kn own CAD. Chest pain symptom assessment ?was: Typical Angina. ? Technique: ?A 6 SLFr sheath was inserted in the right radial artery utilizing the ?Seldinger technique. The right coronary artery was injected utilizing a ?IR 2.0 catheter. Coronary stent insertion was performed and the equipment ?utilized will be described in [facility] intervention summary section. 9,000 ?units [...] guiding catheter an d a 3.5 Fr [place] [facility] [place] [address] ??20 Mhz ?using Manual pullback. ??Imagin [...] A premounted 2.00 x 26 mm [place] (TUCKER) ? was deployed wi a maximum [...] Wedelivered along 2.0 x 26 mm HARDEEP [place] ? TUCKER stent and p ositioned it [...] dose administered prior to arrival in the blood and plasma laboratory assistant. ?Recommended anti-platelet/anti- thrombotic regimen: ?Continue aspirin 81 [...] require ?modification of this regimen. C onsult [facility] Interventional Cardiology for ?questions. ?The 1 year [...] using a 2.0 x 26 mm [place] TUCKER stent. ?This completes the revasculariz ation [...] Procedure Note Vitaliy Nobles MD - 03/06/2022 [facility] Cardiac Catheterization/Intervention Re port Patient Name: Don Fatima Procedure Date: 01/30/2022 A #: [id number] Primary Physician: Vitaliy Nobles Case #: [id number] File Name: [id number] Catheterization Order Number: [id number] [facility] Final Report [place], [place] Patient Name: Don Fatima ID#: [...] e was Urgent. The indication for the blood and plasma laboratory assistant visit is stable known CAD. Chest pain [...] 1.5 guiding catheter and a 3.5 Fr [place] [facility] [address] 20 Mhz using Manual pullback. Imaging [...] atmospheres. A premounted 2.00 x 26 mm [place] (TUCKER) was deployed with a maximum inflation [...] along 2. 0 x 26 mm [place] TUCKER stent and positioned it at the [...] administered prior t o arrival in the blood and plasma laboratory assistant. Recommended anti-platelet/anti-thrombot ic regimen: Continue aspirin 81 [...] require modification of this regimen. Consult D [facility] Interventional Cardiology for questions. The 1 year [...] using a 2.0 x 26 mm [place] TUCKER stent. This completes the revascularization of [...] POC Glucose 212 (H) 65 - 199 [facility] mg/dL [facility] LABORATORY Comment: Supplemental ranges: <140 mg/dL before meals <180 mg/dL all other times of the day Specimen Anatomical Collection Method Collection Time Receive d Time (Source) Location / / Volume Laterality Blood 01/30/2022 9:04 AM 2 9:04 EDT AM EDT Vitaliy Nobles MD POINT OF CARE TEST ORDERABLE S Performing Organization Address City/State/[place] [address] (ABNORMAL) POCT Glucose (01/30/2022 8:10 AM EDT) athologist Signature POC Glucose 224 (H) 65 - 199 [facility] mg/dL [facility] LAB[facility]ORY Comment: Supplemental ranges: <140 mg/dL before meals <180 mg/dL all other times of the day Specimen Anatomical Collection Method Collection Time Receive d Time (Source) Location / / Volume Laterality Blood 01/30/2022 8:10 AM 2 8:10 EDT AM EDT Vitaliy Nobles MD POINT OF CARE TEST ORDERABLE S Performing Organization Address City/[facility]/[place] [address] documented in this encounter Visit Diagnoses Diagnosis ASCVD (arteriosclerotic cardiovascular d isease) Unspecified cardiovascular disease 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 ASHD (arteriosclerotic heart disease) Coronary atherosclerosis of unspecified type of vessel, hamilton or graft ASCVD (arteriosclerotic cardiovascular d isease) Unspecified cardiovascular disease documented in this encounter Admitting Diagnoses Diagnosis CAD (coronary artery disease) Coronary atherosclerosis of unspecified type of vessel, hamilton or graft documented in this encounter Administered [...] Given 02/2022 10:11 AM EDT 100 mcg (DESSERT CUP MACHINE FEEDER) ONCE PRN, Starting on Wed01/30/22 at 0927, [...] Procedure), Routine niCARdipine (Cardene) (100 mcg/mL) dilution (DESSERT CUP MACHINE FEEDER) (CANCELED ) 0927 (Given - Provider: Vitaliy [...] (Intra-Procedure) documented in this encounter Care Teams Caption Writer Relationship Specialty Start Date End Date Lovely Vicente MD PCP - General 04/16/[address] [place] [address] documented as of this encounter
--- OUTSIDE RECORDS SUMMARY | 2022-03-23 09:33 | XMS_ITS | Encounter Summary ---
:1945 [place] [address] Care Team Providers Name Role Phone Lovely Vicente MD Primary Care Provider Encounter Details Date Type Department Care Team Description 01/28/2022 Orders Only Geological Manager Zulma Finch ASCVD (art eriosclerotic [facility] cardiovascular disease) [facility] [place] [address] [place], [place] [phone] (Work) [phone] Social History Tobacco Use Types Packs/Day Years [...] MD [facility] [address] [place] [address] (Wo rk) 05/28/2022 Appointment Cardiology Zulma Dolan MD [facility] Dr [place] [address] (Wo rk) 05/28/2022 Laboratory Appointment Lab 05/28/2022 Office Visit Cardiology Zulma Dolan MD [facility] [place] [address] Liz Poole PA [facility] [place] [address] 06/10/2022 Office Visit Dermatology Laura Scherer MD [facility] ER DR [address]-DERMAT [place], [place] 0375 (Wo rk) documented as of this encounter Results (ABNORMAL) Basic Metabolic Panel (non-fasting) (01/30/2022 7:19 AM EDT) P athologist Signature Glucose Lvl 237 (H) 65 - 199 [facility] mg/dL [facility] LABORATORY Comment: Diabetes: >=200 mg/dL plus symp toms BUN 34 (H) 10 - 20 mg/dL [facility] LABORATORY Creatinine 1.45 0.80 - 1.50 mg/dL [facility] [...] 107 mmol/L [facility] LABORATORY CO2 30 22 - 31 mmol/L [facility] LABORATORY Anion Gap 11 5 - 15 mmol/L [facility] LABORATORY Calcium 9.5 8.5 - 10.5 mg/dL [facility] LABORATORY Estimated GFR 50 (L) >=60 mL/min/1.73 m?? [facility] [...] Organization Address City/State/[place] [address] documented in this encounter Visit Diagnoses Diagnosis ASCVD (arteriosclerotic cardiovascular d isease) Unspecified cardiovascular disease documented in this encounter Care Teams Store Clerk Cashier Relationship Specialty Start Date End Date Lovely Vicente MD PCP - General 04/16/[address] [place] [address] documented as of this encounter
--- OUTSIDE RECORDS SUMMARY | 2022-03-23 09:33 | XMS_ITS | Clinical Summary ---
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; [...] Center Dayami Buckner 12/24/2021 Orders Only Cardiology Teressa ASCVD (arterios clerotic STEPHANIE Maya cardiovascular disease) from Last 3 Months Immunizations Name Administration [...] Vitaliy Nobles MD [facility] [address] [place], [place] [address] (Wo rk) 05/28/2022 Appointment Cardiology Zulma Dolan MD [facility] [address] [place] [address] (Wo rk) 05/28/2022 Laboratory Appointment Lab 05/28/2022 Office Visit Cardiology Zulma Dolan MD [facility] [place] [address] Liz Poole PA [facility] [address] 06/10/2022 Office Visit Dermatology Laura Scherer MD [facility] ER [address]-DERMAT OLOGY [place], [place] [address] (Wo rk) Health Maintenance Due Date Last Done Comments Covid-19 Vaccine (#1) 1950 Pneumoccocal Vaccine: 65+ (1 - PCV) 1952 Hepatitis C Screening 1964 Tdap adult 1965 Tetanus vaccine 1965 Zoster vaccine (1 of 2) 1996 Colonoscopy 01/16/2019 01/16/2014, 01/16/2014 Influenza (Flu) vaccine (1 of 1 - 03/26/2022 03/29/2013, Influenza standard series) Medical Devices Implanted Type Area Extrusion Die Repair Manager Device Shelf Model / Identifier Expiration Serial / Date Lot Cable,Cut,Edg,Blnt,Ss,3tpr ([id number]) - [id number] IMPLANTS Midline: [employer] 04/01/2022 [id number] / Implanted: Qty: 4 on 07/07/2017 by Yuan Retana MD at [facility] [employer] - / [id number] Procedures Procedure Name Priority Date/Time Associated Diagnosis [...] Time Signature WBC 7.2 4.0 - 9.5 [facility] x10(3)/[facility] LABORATORY RBC 4.41 (L) 4.58 - [facility] 5.54 [facility] x10(6)/[facility] LABORATORY Hemoglobin 13.2 (L) 13.7 - [facility] g/dL [facility] LABORATORY Hematocrit 40.9 40.5 - [facility] 48.5 % [facility] LABORATORY MCV 92.7 82.9 - [facility] 93.1 [facility] LABORATORY MCH 29.9 27.5 - [facility] 32.1 pg [facility] LABORATORY MCHC 32.3 32.0 - [facility] 35.7 g/dL [facility] LABORATORY Platelets 191 145 - 357 [facility] x10(3)/[facility] LABORATORY RDWSD 53.6 (H) 36.0 - [facility] 45.0 [facility] LABORATORY RDWCV 15.6 (H) 11.4 - [facility] 13.8 % [facility] LABORATORY MPV 8.7 7.6 - 12.9 [facility] LABORATORY nRBC % Auto 0.0 % [facility] LABORATORY nRBC Abs Auto 0.000 0.000 - [facility] 0.000 [facility] x10(3)[facility] LABORATORY Specimen Anatomical Collection Method Collection Time Receive d Time (Source) Location / / Volume Laterality Blood 02/19/2022 8:06 AM 8:09 EDT AM EDT Resulting Agency Comment Spec In Lab Liz BROWN HEMATOLOGY ORDERABLES Performing Organization Address City/State/[place] [address] (ABNORMAL) Differential, Automated (02/19/2022 8:06 AM EDT)Only the most recent of4 resultswithin the time period is included. [facility] gist Method Time Signature Neutrophils % 76.0 % [facility] LABORATORY Neutr Abs (ANC) 5.49 1.70 - [facility] 6.10 [facility] x10(3)/[facility] LABORATORY Lymphocytes % 10.8 % [facility] LABORATORY Lymphocytes Abs 0.8 (L) 0.9 - 3.2 [facility] x10(3)/[facility] LABORATORY Monocytes % 10.2 % [facility] LABORATORY Monocyte Abs 0.7 0.3 - 0.9 [facility] x10(3)/[facility] LABORATORY Eosinophils % 1.2 % [facility] LABORATORY Eosinophils Abs 0.1 0.0 - 0.4 [facility] x10(3)/[facility] LABORATORY Basophils % 0.8 % [facility] LABORATORY Basophils Abs 0.1 0.0 - 0.1 [facility] x10(3)/[facility] LABORATORY Immature Gran % 1.00 % [facility] LABORATORY Comment: Immature granulocytes(IG's)percentage an d absolute count will include metamyelocytes, myelocytes, and promyelo cytes. Blood smears from CBCs yielding IG's will be scanned manually for concor dance. If this scan disagrees with the automated IG or if promyelocytes are not ed, a manual differential will be performed. Melisa Gran Abs 0.07 (H) 0.00 - 0.04 x10(3)/[facility] LABORATORY Specimen Anatomical Collection Method Collection Time Receive d Time (Source) Location / / Volume Laterality Blood 02/19/2022 8:06 AM 2 8:09 EDT AM EDT Resulting Agency Comment Spec In Lab Liz BROWN HEMATOLOGY ORDERABLES Performing Organization Address City/State/[place] [address] (ABNORMAL) pro-Brain Natriuretic Peptide (02/19/2022 8:06 AM EDT)Only the most recent of2 resultswithin the time period is included. P athologist Signature ProBNP 984 (H) <=449 pg/mL [facility] LABORATORY Specimen Anatomical Collection Method Collection Time Receive d Time (Source) Location / / Volume Laterality Blood 02/19/2022 8:06 AM 2 8:09 EDT AM EDT Resulting Agency Comment Spec In Lab Zulma Plunkett MD CHEMISTRY ORDERABLES Performing Organization Address City/[facility]/ZIP Code Phon e Number [address] POCT Glucose (01/30/2022 1:41 PM EDT)Only the most recent of4 resultswithin the time period is included. P athologist Signature POC Glucose 148 65 - 199 [facility] mg/dL [facility] LABORATORY Comment: Supplemental ranges: <140 mg/dL before meals <180 mg/dL all other times of the day Specimen Anatomical Collection Method Collection Time Receive d Time (Source) Location / / Volume Laterality Blood 01/30/2022 1:41 PM 2 1:41 EDT PM EDT Vitaliy Sandra Nobles MD POINT OF CARE TEST ORDERABLE S Performing Organization Address [facility] [place] [address] EKG 12 Lead (01/30/2022 10:33 AM EDT) Component Value Ref Range Test Analysis Performed Pathologis t Method Time At Signature Ventricular rate 64 BPM MUSE SYSTEM Atrial Rate 64 BPM MUSE SYSTEM P-R Interval 162 ms MUSE SYSTEM QRS Duration 94 ms MUSE SYSTEM Q-T Interval 422 ms MUSE SYSTEM QTC Calculated 435 ms MUSE SYSTEM (Bezet) Calculated P [place] 41 degrees MUSE SYSTEM Calculated R [place] -27 degrees MUSE SYSTEM Calculated T [place] 104 degrees MUSE SYSTEM INTERPRETATION Normal sinus rhythm MUSE SYSTEM Anterolateral infarct (cited on or before 09-DEC-2021) Abnormal ECG When compared with ECG of 10-DEC-2021 11:17, No significant change was found Confirmed by Gary Perez ([id number]) on 01/30/2022 5:57:5 2 PM Specimen Anatomical Collection Method Collection Time Receive d Time (Source) Location / / Volume Laterality 01/30/2022 10:33 01/30/2022 5:57 AM EDT PM EDT Vitaliybrock Nobles MD ECG ORDERABLES Performing Organization Address City/[facility]/ZIP Code Phon e Number MUSE SYSTEM CARDIAC CATHETERIZATION (01/30/2022 10:16 AM EDT) Specimen (Source) Anatomical Location Collection Method / Collectio n Time Received Time / Laterality Volume Narrative CARDIOMAC SYSTEM - 01/30/2022 2:09 PM ED T ?[facility] ? Cardiac Cathete rization/Intervention Report ? Patient Name: Don Fatima. ? Procedure Date: 01/30/2022 ? A #: [id number] ? Primary Physician: Nobles, Vitaliy P ? Case #: [id number] ? File Name: [id number] ? Catheterization Order Number: [id number] ? [facility] ?Photographer [facility] ? Final Report [place], [place] ? Patient Name: ? Don E. Stewa rt ? ID#: ?[id number] ? : ?1945 ? Procedure Date: ? January 30, 2022 ? Case #: ? [id number] ? Room: ? 1 ? Case Physician: ? Fabian Lopez ?Start: ?08:54 ?Fellow: ? Eddi Elizabeth Jr., M.Jorge. ?Admission: ??01/30/2022 ? Discharge: ??01/30/2022 ? Procedures: [...] ?designated as ASA Class III. Th e [facility] clinical frailty scale is 5: [...] was Urgent. The indication for ?the laborer cook house visit is stable kn own CAD. [...] guiding catheter an d a 3.5 Fr [address] ??20 Mhz ?using Manual pullback. ??Imagin [...] ?? A premounted 2.00 x 26 mm [place] (TUCKER) ? was deployed wi a maximum [...] Wedelivered along 2.0 x 26 mm [place] ? TUCKER stent and p ositioned it [...] administered prior to arrival in the laborer cook house. ?Recommended anti-platelet/anti- thrombotic regimen: ?Continue aspirin [...] require ?modification of this regimen. C onsult [facility] Interventional Cardiology for [...] with a ?5.5 mm NC balloon. Following is we noted brisk flow up the retrograde ?portion of the sequential graft into the Diag, thus we probably relieved ?his Diag1 ischemia as well. We let him recover from his ADHF and contrast ?load and today brought him back for a PCI of the diffusely diseased 95% ?RPDA. We stented the RPDA using a 2.0 x 26 mm [place] TUCKER stent. ?This completes the revasculariz ation [...] Note Vitaliy Nobles MD - 03/06/2022 [facility] Cardiac Catheterization/Intervention Re port Patient Name: Don Fatima Procedure Date: 01/30/2022 A #: [id number] Primary Physician: Vitaliy Nobles Case #: [id number] File Name: [id number] Catheterization Order Number: [id number] [facility] Final Report [place], [place] Patient Name: Don Fatima ID#: [...] was Urgent. The indication for the laborer cook house visit is stable known CAD. Chest pain [...] 1.5 guiding catheter and a 3.5 Fr [facility] 20 Mhz using Manual pullback. Imaging [...] A premounted 2.00 x 26 mm [place] (TUCKER) was deployed with a maximum inflation [...] along 2. 0 x 26 mm [place] TUCKER stent and positioned it at the [...] prior t o arrival in the laborer cook house. Recommended anti-platelet/anti-thrombot ic regimen: Continue aspirin 81 [...] require modification of this regimen. Consult [facility] Interventional Cardiology for questions. The 1 year [...] using a 2.0 x 26 mm [place]DE[place] TUCKER stent. This completes the revascularization of [...] Organization Address City/State/ZIP Code Phon e Number [facility] from Last 3 Months Insurance Payer Benefit Plan / Subscriber ID Effective Phone Address T [facility] Group Dates MEDICARE MEDICARE PART [id number] 2011-Prese [phone] [place] [address] [employer] [place] P [id number] 2018-Prese [phone] [address] [place] [address] [place] [address] Advance Directives Documents on File Type Date Recorded Patient Awake Overnight Monitor Explanati on Advance Directives and Living 03/28/2013 [...] capacity to make decision: Yes Care Teams Mud Mixer Operator Relationship Specialty Start Date End Date Lovely Vicente MD PCP - General 04/16/[address] [place] [address]
--- OUTSIDE RECORDS SUMMARY | 2022-03-23 09:33 | XMS_ITS | Encounter Summary ---
:1945 Author Organization [facility] [place] [address] Care Team Providers Name Role Phone Lovely Vicente MD Primary Care Provider Reason for Visit Reason Onset Date Comments Follow-up 02/23/2022 Medication adjustmen t and new med Encounter Details Date Type Department Care Team Description 02/23/2022 Telephone Cardiology at [facility] Martha Comer, Follow-up ([facility] RN adjustbrandon t and new [place]) [place] [phone] Social History Tobacco Use Types Packs/Day [...] the order for BMP and sent to [facility]. will call [facility] to make an appointment for next Wednesday03/04/22. They will call when he gets the test done so we can get the results. Telephone Encounter - Mratha Comer RN - 02/23/2022 6:19 PM EDT , Angela calling for pt, she helps with his meds, to confirm what he is to do with the Spironolactone and Entresto. Per STEPHANIE Poole he is to decrease the Spironolactone (Aldactone) 25 mg to 12.5 mg (1/2 of 25 mg tablet) daily. She will correct his pill digital sales planner to the new dose. Will need to check with STEPHANIE Poole about repeat BMP to recheck K+ level. If yes he will get the test done at [facility]. They are aware that he will need to make an appt at [facility] to get the test [...] if he qualifies for assistance from the [employer]. She is thankful for the assistance, as he is taking insulin that is very expensive too. Instructed to call this content writer, if he does qualify for assistance from [employer] and that he has gotten the medication [...] [facility] [address] [place], [place] [address] (Wo rk) 05/28/2022 Appointment Cardiology Zulma Dolan MD [facility] [place], [place] [address] (Wo rk) 05/28/2022 Laboratory Appointment Lab 05/28/2022 Office Visit Cardiology Zulma Dolan MD [facility] [place] [address] Liz Poole PA [facility] [place] [address] 06/10/2022 Office Visit Dermatology Laura Scherer MD [facility] [address]DERMAT [place], [place] [address] (Wo rk) documented as of this encounter Visit Diagnoses Not on filedocumented in this encounter Care Teams Mat Tester Relationship Specialty Start Date End Date Lovely Vicente MD PCP - General 04/16/[address] [place] [address] documented as of this encounter
--- OUTSIDE RECORDS SUMMARY | 2022-03-23 09:33 | XMS_ITS | Encounter Summary ---
:1945 [place] [address] Care Team Providers Name Role Phone Lovely Vicente MD Primary Care Provider Reason for Visit Reason Onset Date Comments Follow-up 02/26/2022 Entresto start Encounter Details Date Type Department Care Team Description 02/26/2022 Telephone Cardiology at [facility] Martha Comer, Follow-up ([facility] RN start) [place] [phone] Social History Tobacco Use Types Packs/Day [...] on 03/05/22 Getting labs done at : [facility] Order e-faxed by STEPHANIE Poole on 02/24/22. /pt to call on 03/05/22 letting us know to get the BMP results from [facility]. Nursing to get results and contact pt to see how he is tolerating the Entresto. They are to call sooner with any questions/concerns. documented in this encounter Plan of Treatment Upcoming Encounters Date Type Specialty Care Team Description 03/26/2022 Office Visit Cardiology Vitaliy Nobles MD [facility] [address] [place], [place] [address] (Wo rk) 05/28/2022 Appointment Cardiology Zulma Dolan MD [facility] [place], [place] [address] (Wo rk) 05/28/2022 Laboratory Appointment Lab 05/28/2022 Office Visit Cardiology Zulma Dolan MD [facility] [place] [address] Liz Poole PA [facility] [place] [address] 06/10/2022 Office Visit Dermatology Laura Scherer MD [facility] DR [address]DERMAT OLOGY [place], [place] [address] (Wo rk) documented as of this encounter Visit Diagnoses Not on filedocumented in this encounter Care Teams Foreclosure Clerk Relationship Specialty Start Date End Date Lovely Vicente MD PCP - General 04/16/[address] [place] [address] documented as of this encounter
--- OUTSIDE RECORDS SUMMARY | 2022-03-23 09:33 | XMS_ITS | Encounter Summary ---
:1945 Author Organization [facility] [place] [place] [address] Care Team Providers Name Role Phone Lovely Vicente MD Primary Care Provider Encounter Details Date Type Department Care Team Description 02/24/2022 Notes Only [place] [address] Social History Tobacco Use Types Packs/Day [...] return to the Medication Assistance Program. The [facility] office will follow up with the patient in 5 business days to see if the patient has received the application and if they have any questions. documented in this encounter Plan of Treatment Upcoming Encounters Date Type Specialty Care Team Description 03/26/2022 Office Visit Cardiology Vitaliy Nobles MD [facility] [address] [place], [place] [address] (Wo rk) 05/28/2022 Appointment Cardiology Zulma Dolan MD [facility] [place], [place] [address] (Wo rk) 05/28/2022 Laboratory Appointment Lab 05/28/2022 Office Visit Cardiology Zulma Dolan MD [facility] [place] [address] Liz Poole PA [facility] [place] [address] 06/10/2022 Office Visit Dermatology Laura Scherer MD [facility] [address] GR[address]DERMAT [place], [place] [address] (Wo rk) documented as of this encounter Visit Diagnoses Not on filedocumented in this encounter Care Teams Manager Business Operations Relationship Specialty Start Date End Date Lovely Vicente MD PCP - General 04/16/15 [facility] [address] [place] [address] documented as of this encounter
--- OUTSIDE RECORDS SUMMARY | 2022-03-23 09:33 | XMS_ITS | Encounter Summary ---
:1945 Author Organization [facility] [place] [address] Care Team Providers Name Role Phone Lovely Vicente MD Primary Care Provider Reason for Referral Diagnostic Test (Routine) - New Request Specialty Diagnoses / Procedures Referred By Contact Refer red To Contact Cardiology Diagnoses Chronic systolic heart failure Liz Carrera PA [facility] Non-Inv Card Lab Procedures Echocardiogram Transthoracic [facility] [place] [address] [place] [address] Fax: Referral ID Status Reason Start Expiration Visits Visits Date Date Requested Authorized [id number] New Request Specialty 02/19/2022 02/19/2023 1 1 Service Requested Encounter Details Date Type Department Care Team Description 02/19/2022 Office Visit Cardiology at [facility] Liz Carrera, Chronic systolic heart [facility] [place] [address] Cardiology Dept [phone] [place], [place] [address] Social History Tobacco Use Types [...] As per DC Summary - Admitted to [facility] on 12/08/21, transferred from [facility], respiratory distress with hypoxia [...] mg PO daily in place of Lasix. [place] is new for him and he will [...] Antiplatelet (DAPT) Recommendations above ? TTE from [facility] 12/08/21 ?? 07/28/2019 Echocardiogram: [...] present. 07/07/2019 - 07/21/2019 Zio Patch Multimedia Specialist The patient had a minimum heart [...] 12.5 mg daily 6. Post-op atrial fibrillation [id number] (CHF, HTN, DM, vascular disease, thromboembolism) Eliquis 7. PAD 08/06/2017: Right 1st, 2nd, 3rd toe amputation 08/11/2017: Left??femoral arterial access, RLE??angiogram, Balloon angioplasty of R PT 10/25/2017: [facility] [...] MD [facility] [address] T[address] [place], [place] [address] (Wo rk) 05/28/2022 Appointment Cardiology Zulma Dolan MD [facility] [place], [place] [address] (Wo rk) 05/28/2022 Laboratory Appointment Lab 05/28/2022 Office Visit Cardiology Zulma Dolan MD [facility] [place] [address] Liz Carrera PA [facility] [place] [address] 06/10/2022 Office Visit Dermatology Laura Scherer MD [facility] DR TEJA GR-DERMAT [place], [place] [address] (Wo rk) Scheduled Orders Name Type Priority Associated Order Schedule Diagnoses Echocardiogram Echocardiography Routine Chronic systolic Expec vlad: Transthoracic heart failure 05/22/2022 (Approximate), Expires: 11/21/2022 documented as of this encounter Results (ABNORMAL) Basic Metabolic Panel (non-fasting) (02/19/2022 8:06 AM EDT) athologist Signature Glucose Lvl 139 65 - 199 [facility] mg/dL [facility] LABORATORY Comment: Diabetes: >=200 mg/dL plus symp toms BUN 31 (H) 10 - 20 mg/dL [facility] LABORATORY Creatinine 1.53 (H) [...] mmol/L [facility] LABORATORY Calcium 9.7 8.5 [...] Organization Address City/State/[place] [address] (ABNORMAL) pro-Brain Natriuretic Peptide [...] Organization Address City/State/[place] [address] documented in this encounter Visit Diagnoses Diagnosis Chronic systolic heart failure documented in this encounter Care Teams Systems Support Officer Relationship Specialty Start Date End Date Lovely Vicente MD PCP - General 04/16/[address] [place] [address] [address] [place] [address] documented as of this encounter
--- OUTSIDE RECORDS SUMMARY | 2022-03-23 09:33 | XMS_ITS | Encounter Summary ---
:1945 Author Organization [facility] [place] [address] Care Team Providers Name Role Phone Lovely Vicente MD Primary Care Provider Reason for Visit Reason Onset Date Comments Advice Only 01/28/2022 Encounter Details Date Type Department Care Team Description 01/28/2022 Telephone Cardiology at [facility] Chitra Angela, medical [place] [address] Social History Tobacco Use Types Packs/Day [...] Fatima assists patient with medications. Number for mineral ore processing labourer scheduling given and she will call them to verify this information Meds reviewed. As per our form from mineral ore processing labourer Eliquis hold for 48 hours [...] Nobles MD [facility] [address] T[address] [place], [place] [address] (Wo rk) 05/28/2022 Appointment Cardiology Zulma Dolan MD [facility] [place], [place] [address] (Wo rk) 05/28/2022 Laboratory Appointment Lab 05/28/2022 Office Visit Cardiology Zulma Dolan MD [facility] [place] [address] Liz Poole PA [facility] [place] [address] 06/10/2022 Office Visit Dermatology Laura Scherer MD [facility] DR [address] [place], [place] [address] (Wo rk) documented as of this encounter Visit Diagnoses Not on filedocumented in this encounter Care Teams Pathology Laboratory Director Relationship Specialty Start Date End Date Lovely Vicente MD PCP - General 04/16/[address] [place] [address] documented as of this encounter
--- OUTSIDE RECORDS SUMMARY | 2022-03-23 09:33 | XMS_ITS | Encounter Summary ---
:1945 Author Organization [facility] [place] [address] Care Team Providers Name Role Phone Lovely Vicente MD Primary Care Provider Encounter Details Date Type Department Care Team Description 02/23/2022 Refill Cardiology at [facility] Liz Poole PA [facility] [place] [address] Cardiology Dept [phone] [place], [place] 0[address] (Wo rk) Social History Tobacco [...] 02/23/2022 4:26 PM EDT Specialty Pharmacy Referral; Oaxna Oneill RPH Transfer of Services Don Fatima [address] [place] [address] [place] [address] Telephone Information: Work Phone Not on file. [facility] has received a prescription for Entresto for patient Mr. Don Fatima 76 y.o. (1945). The patient requests the prescription to be filled with [facility]. We spoke to patient to notify of this change and to provide number to reach the new filling pharmacy. A copyof patient's medication profile was offered to the accepting pharmacy. Additional instructions provided to patient about transfer: no The patient has been advised to call the [facility] at [phone] with any questionsor concerns on this referral. Thank you, Oxana Oneill RPH 02/23/22 4:26 PM Patient understands no changes to current drug regimen were made at this time. documented in this encounter Plan of Treatment Upcoming Encounters Date Type Specialty Care Team Description 03/26/2022 Office Visit Cardiology Vitaliy Nobles MD [facility] [address] [place], [place] [address] (Wo rk) 05/28/2022 Appointment Cardiology Zulma Dolan MD [facility] [place], [place] 0[address] (Wo rk) 05/28/2022 Laboratory Appointment Lab 05/28/2022 Office Visit Cardiology Zulma Dolan MD [facility] [place] [address] Liz Poole PA [facility] [place] [address] 06/10/2022 Office Visit Dermatology Laura Scherer MD [facility] [address] TE[address]DERMAT [place], [place] 0375 (Wo rk) documented as of this encounter Visit Diagnoses Not on filedocumented in this encounter Care Teams Linseed Oil Temperer Relationship Specialty Start Date End Date Lovely Vicente MD PCP - General 04/16/15 [facility] [address] [place] [address] documented as of this encounter
--- OUTSIDE RECORDS SUMMARY | 2022-03-23 09:33 | XMS_ITS | Encounter Summary ---
:1945 Author Organization [facility] [place] [address] Care Team Providers Name Role Phone Lovely Vicente MD Primary Care Provider Reason for Visit Auth/Cert Specialty Diagnoses / Procedures Referred By Contact Refer red To Contact Diagnoses ASCVD (arteriosclerotic cardiovascular disease) [I25.10] Vitaliy Nobles MD [facility] Procedures PRO PERC TRLUML CORONARY STENT W/ANGIO ONE ART/BRANCH CARDIAC CATHETERIZATION STENT PLACEMENT-SINGLE MAJOR CORONARY ARTERY OR BRANCH [facility] [place] [address] Referral ID Status Reason Start Date Expiration Date Visits Requ ested Visits Authorized [id number] 1 1 Encounter Details Date Type Department Care Team Description 01/30/2022 Laboratory Lab 3L Katalina ASCVD (arterios clerotic Appointment [facility] cardiovas cular disease) [place] [address] Social History Tobacco Use Types Packs/Day Years [...] Nobles MD [facility] CARDIOLOGY [place], [place] 0375 (Wo rk) 05/28/2022 Appointment Cardiology Zulma Dolan MD [facility] [place], [place] [address] (Wo rk) 05/28/2022 Laboratory Appointment Lab 05/28/2022 Office Visit Cardiology Zulma Dolan MD [facility] [place] [address] Liz Poole PA [facility] [place] [address] 06/10/2022 Office Visit Dermatology Laura Scherer MD [facility] [address]DER[address] [place]LOGY [place], [place] [address] (Wo rk) documented as of [...] (ABNORMAL) Differential, Automated (01/30/2022 7:19 AM EDT) [facility] Method Time Signature Neutrophils % 77.9 % [facility] Neutr Abs (ANC) 5.31 1.70 - [facility] 6.10 [facility] x10(3)/[facility] LABORATORY Lymphocytes % 12.0 % [facility] Lymphocytes Abs 0.8 (L) 0.9 - 3.2 [facility] x10(3)/[facility] LABORATORY Monocytes % 8.1 % [facility] Monocyte Abs 0.6 0.3 - 0.9 [facility] x10(3)/[facility] LABORATORY Eosinophils % 0.4 % [facility] Eosinophils Abs 0.0 0.0 - 0.4 [facility] x10(3)/[facility] LABORATORY Basophils % 0.6 % [facility] Basophils Abs 0.0 0.0 - 0.1 [facility] x10(3)/[facility] LABORATORY Immature Gran % 1.00 % [facility] Comment: Immature granulocytes(IG's)percentage an d absolute count will include metamyelocytes, myelocytes, and promyelo cytes. Blood smears from CBCs yielding IG's will be scanned manually for concor dance. If this scan disagrees with the automated IG or if promyelocytes are not ed, a manual differential will be performed. Melisa Gran Abs 0.07 (H) 0.00 - 0.04 x10(3)/[facility] LABORATORY Specimen Anatomical Collection Method Collection Time Receive d Time (Source) Location / / Volume Laterality Blood 01/30/2022 7:19 AM 7:21 EDT AM EDT Resulting Agency Comment Spec In Lab Zulma BROWN HEMATOLOGY ORDERABLES Performing Organization Address City/State/Z[place] [address] (ABNORMAL) Hemogram (01/30/2022 7:19 AM EDT) Analysis Performed At Patho logist Time Signature WBC 6.8 4.0 - 9.5 [facility] x10(3)/[facility] LABORATORY RBC 4.32 (L) 4.58 - [facility] 5.54 [facility] x10(6)/[facility] LABORATORY Hemoglobin 13.0 (L) 13.7 - [facility] 16.5 g/dL [facility] LABORATORY Hematocrit 39.8 (L) 40.5 - [place] OLIVASCK 48.5 % [facility] LABORATORY MCV 92.1 82.9 - [facility] 93.1 [facility] LABORATORY MCH 30.1 27.5 - [place] 32.1 pg [facility] LABORATORY MCHC 32.7 32.0 - [place] 35.7 g/dL [facility] LABORATORY Platelets 172 145 - 357 [facility] x10(3)/[facility] LABORATORY RDWSD 54.5 (H) 36.0 - [place] ZHAORYAN 45.0 [facility] LABORATORY RDWCV 16.2 (H) 11.4 - [place] R[place] 13.8 % [facility] LABORATORY MPV 9.0 7.6 - 12.9 [facility] LABORATORY nRBC % Auto 0.0 % [facility] nRBC Abs Auto 0.000 0.000 [facility] x10(3)/[facility] LABORATORY Specimen Anatomical Collection Method Collection Time Receive d Time (Source) Location / / Volume Laterality Blood 01/30/2022 7:19 AM 7:21 EDT AM EDT Resulting Agency Comment Spec In Lab Zulma BROWN HEMATOLOGY ORDERABLES Performing Organization Address City/State/ZIP Code Phon e Number [place] [phone] HOSP[address] (ABNORMAL) Basic Metabolic Panel (non-fasting) (01/30/2022 7:19 AM EDT) P athologist Signature Glucose Lvl 237 (H) 65 - 199 [facility] mg/dL [facility] LABORATORY Comment: Diabetes: >=200 mg/dL plus symp toms BUN 34 (H) 10 - 20 mg/dL [facility] LABOR[facility]ORY Creatinine 1.45 0.80 - [...] 15 mmol/L [facility] LABOR[facility]ORY Calcium 9.5 8.5 - [...] Address City/State/Z[place] [address] documented in this encounter Visit Diagnoses Diagnosis ASCVD (arteriosclerotic cardiovascular d isease) Unspecified cardiovascular disease documented in this encounter Care Teams Knit Goods Press Hand Relationship Specialty Start Date End Date Lovely Vicente MD PCP - General 04/16/[address] [place] [address] documented as of this encounter
--- OUTSIDE RECORDS SUMMARY | 2022-03-23 09:33 | XMS_ITS | Encounter Summary ---
:1945 Author Organization [employer] Address [facility] [place] [address] Care Team Providers Name Role Phone Lovely Vicente MD Primary Care Provider Reason for Visit Reason Comments Prior Authorization Entresto 24-26mg tablets Encounter Details Date Type Department Care Team Description 02/20/2022 Specialty Pharmacy Pharmacy at [facility] Lamberto Smith Prior Authorization [facility] J (Entresto 24-26mg Drive tablets) [place] [id number] Social History Tobacco Use Types Packs/Day Years [...] Don Fatima Patient : 1945 Patient Address: [address] [place] [address] [place] [address] (home) Medication Name: ENTRESTO 24 MG-26 MG TABLET Medication ID: [id number] Patient Location: [facility] CARDIOLOGY 4A Patient Location Comment: Medication Strength Frequency Requested: Entresto 24-26mg tablets / One tablet twice daily Qty/Day Supply: New Start: New to Therapy Diagnosis & ICD-10 Code: Chronic systolic heart failure, I50.22 Subscriber Insurance: [employer] [facility] Subscriber Insurance Comment: Fax: Physician: LIZ CARRERA Physician Comment : PA Status: NO PA REQUIRED Insurance mandated Pharmacy: Unknown Fillable at [facility]: Yes Insurance requirements/notes: None Copay: $119.01 (goes to coverage gap/odalys monteiro) Copay assistance: [employer] Copay assistance comment: If cost isn't affordable, then we'll suggest enrollment in the currently open [facility] Heart Failure zoila, which provides up to $1000 in copay assistance. If zoila closes, or doesn't work out, then the patient can attempt enrollment in the acid purification equipment operator assistance program, the [employer] Patient Assistance [employer] (NPAF). At which point we'd refer to [facility] for assistance with enrollment. Pharmacy staff [...] Nobles MD [facility] DR [place] [place], [place] [address] (Wo rk) 05/28/2022 Appointment Cardiology Zulma Dolan MD [facility] [address] [place] 4[address] (Wo rk) 05/28/2022 Laboratory Appointment Lab 05/28/2022 Office Visit Cardiology Zulma Dolan [place] [address] Liz Carrera PA [facility] [place] [address] 06/10/2022 Office Visit Dermatology Laura Scherer MD [facility] ER DR TEJA GR[address]MAT [place], [place] 0[address] (Wo rk) documented as of this encounter Visit Diagnoses Not on filedocumented in this encounter Care Teams Fancy Needleworker Relationship Specialty Start Date End Date Lovely Vicente MD PCP - General 04/16/[address] [place] [address] documented as of this encounter
--- OUTSIDE RECORDS SUMMARY | 2022-03-23 09:33 | XMS_ITS | Encounter Summary ---
:1945 Author Organization [facility] Address [place] [address] Care Team Providers Name Role Phone Lovely Vicente MD Primary Care Provider Reason for Visit Auth/Cert Specialty Diagnoses / Procedures Referred By Contact Refer red To Contact Diagnoses ASCVD (arteriosclerotic cardiovascular disease) [I25.10] Vitaliy Nobles MD [facility] Procedures PRO PERC TRLUML CORONARY STENT W/ANGIO ONE ART/BRANCH CARDIAC CATHETERIZATION STENT PLACEMENT-SINGLE MAJOR CORONARY ARTERY OR BRANCH [facility] [place] [address] Referral ID Status Reason Start Date Expiration Date Visits Requ ested Visits Authorized [id number] 1 1 Encounter Details Date Type Department Care Team Description 01/30/2022 Hospital Encounter Short Stay Unit at Vitaliy Nobles, CVD (arteriosclerotic cardiovascular disease); Barbara Blue MD 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 Please follow up with your learning and development consultant in the next 4-6 weeks. We have made a referral to cardiac rehab. Please see the attached instructions regarding care to your right wrist access site. AttachmentsThe following attachments cannot be sent through Care Everywhere. Coronary Angiogram: Post-op (Hungarian)documented in this encounter Medications at Time of [...] RN - 01/30/2022 4:[address] [facility] Short Stay Unit Discharge Note [...] recent PCI presenting for staged PCI to [facility]. The pt states he has been ok. [...] recent PCI presenting for staged PCI to [facility]. The indications, expected benefits, and potential risks [...] had referred him to cardiac rehab at [facility] last month per HF team. He was waiting until this intervention before starting the program. Reviewed managing angina /use of sl nitroglycerin. Given parameters for home exercise. 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 We discussed short walks several times per day. Will send [facility] his discharge summary from this admission. The patient should be contacted by the Program within 1- 2 weeks from discharge. Brief Op Note - Vitaliy Nobles MD - 01/30/2022 10:19 AM EDT Images from the original note were not included. [facility] [place] [address] CORONARY ANGIOGRAM AND PERCUTANEOUS CORONARY INTERVENTION REPORT Patient: Don Fatima : 1945 MR number: [id number] Date of Service: 01/30/2022 Digital Advisor: Vitaliy Nobles MD Fellow: KEYON Elizabeth INDICATION: [...] a long 2.0 x 26 mm HARDEEP Meriwether TUCKER stent and positioned it at the [...] using a 2.0 x 26 mm HARDEEP Meriwether TUCKER stent. This completes the revascularization ofall [...] MD [facility] [address] [place] 0[address] (Wo rk) 05/28/2022 Appointment Cardiology Zulma Dolan MD [facility] [place] 0[address] (Wo rk) 05/28/2022 Laboratory Appointment Lab 05/28/2022 Office Visit Cardiology TrudiZulma Knowles [place] [address] Liz Poole PA [facility] [place] [address] 06/10/2022 Office Visit Dermatology Laura Scherer MD [facility] ER DR [address]DERMAT [place], [place] 0[address] (Wo rk) Scheduled Orders Name [...] EDT) athologist Signature Neutrophils % 71.8 % [facility]OR[facility] Neutr Abs (ANC) 3.96 1.70 - [facility] 6.10 [facility] x10(3)/[facility] LABORATORY Lymphocytes % 16.3 % [facility] Lymphocytes Abs 0.9 0.9 - 3.2 [facility] x10(3)/[facility] LABORATORY Monocytes % 10.0 % [facility] Monocyte Abs 0.6 0.3 - 0.9 [facility] x10(3)/[facility] LABORATORY Eosinophils % 0.5 % [facility] Eosinophils Abs 0.0 0.0 - 0.4 [facility] x10(3)/[facility] LABORATORY Basophils % 0.5 % [facility] Basophils Abs 0.0 0.0 - 0.1 [facility] x10(3)/[facility] LABORATORY Immature Gran % 0.90 % [facility] [...] Gran Abs 0.05 (H) 0.00 - 0.04 x10(3)/[facility] LABORATORY Specimen Anatomical Collection Method Collection Time Receive d Time (Source) Location / / Volume Laterality Blood 01/30/2022 2:12 PM 2:37 EDT PM EDT Resulting Agency Comment Spec In Lab Eddi Elizabeth Jr., MD HEMATOLOGY ORDERABLES Performing Organization Address City/State/[place] [address] (ABNORMAL) Hemogram (01/30/2022 2:12 PM EDT) Analysis Performed At Patho logist Time Signature WBC 5.5 4.0 - 9.5 [facility] x10(3)/[facility] LABORATORY RBC 4.30 (L) 4.58 - [place] 5.54 [facility] x10(6)/[facility] LABORATORY Hemoglobin 12.7 (L) 13.7 - [facility] 16.5 g/dL [facility] LABORATORY Hematocrit 39.4 (L) 40.5 - [place] 48.5 % [facility] LABORATORY MCV 91.6 82.9 - [facility] 93.[address] [facility] LABORATORY MCH 29.5 27.5 - [place] 32.1 pg [facility] LABORATORY MCHC 32.2 32.0 - [place] 35.7 g/dL [facility] LABORATORY Platelets 172 145 - 357 [facility] x10(3)/[facility] LABORATORY RDWSD 54.5 (H) 36.0 - [facility] R[facility]AN 45.[address] [facility] LABORATORY RDWCV 16.4 (H) 11.4 - [facility] R[facility]AN 13.8 % [facility] LABORATORY MPV 9.2 7.6 - 12.9 [facility] LABORATORY nRBC % Auto 0.0 % [facility] LABORATORY nRBC Abs Auto 0.000 0.000 - [facility] 0.000 [facility] x10(3)/[facility] LABORATORY Specimen Anatomical Collection Method Collection Time Receive d Time (Source) Location / / Volume Laterality Blood 01/30/2022 2:12 PM 2 2:37 EDT PM EDT Resulting Agency Comment Spec In Lab Eddi Elizabeth Jr., MD HEMATOLOGY ORDERABLES Performing Organization Address City/State/[place] [address] (ABNORMAL) Basic Metabolic Panel (non-fasting) (01/30/2022 2:12 PM EDT) P athologist Signature Glucose Lvl 163 65 - 199 [facility] mg/dL [facility] LABOR[facility]ORY Comment: [...] Address City/State/[place] [address] POCT Glucose (01/30/2022 1:41 PM EDT) athologist Signature POC Glucose 148 65 - 199 [facility] mg/dL [facility] Comment: Supplemental ranges: <140 mg/dL before meals <180 mg/dL all other times of the day Specimen Anatomical Collection Method Collection Time Receive d Time (Source) Location / / Volume Laterality Blood 01/30/2022 1:41 PM 1:41 EDT PM EDT Vitaliy Sandra Nobles MD POINT OF CARE TEST ORDERABLE S Performing Organization Address City/State/ZIP Code Phon e Number [address] POCT Glucose (01/30/2022 10:48 AM EDT) P athologist Signature POC Glucose 193 65 - 199 [facility] mg/dL [facility] Comment: Supplemental ranges: <140 mg/dL before meals <180 mg/dL all other times of the day Specimen Anatomical Collection Method Collection Time Receive d Time (Source) Location / / Volume Laterality Blood 01/30/2022 10:48 01/30/2022 AM EDT 10:48 AM EDT Vitaliy Sandra Nobles MD POINT OF CARE TEST ORDERABLE S Performing Organization Address City/State/ZIP [place] [address] EKG 12 Lead (01/30/2022 [...] change was found Confirmed by Gary Perez ([id number]) on 01/30/2022 5:57:5 2 PM Specimen Anatomical [...] ED T ?[facility] ? Cardiac Cathete rization/Intervention Report ? Patient Name: Don Fatima Veda. ? Procedure Date: 01/30/2022 ? A #: [id number] ? Primary Physician: Vitaliy Nobles ? Case #: [id number] ? File Name: [id number] ? Catheterization Order Number: [id number] ? [facility] ? Final Report [place], [place] ? Patient Name: ? Don E. Stewa rt ? ID#: ?[id number] ? : ?1945 ? Procedure Date: ? [...] was ?designated as ASA Class III. [facility] clinical frailty scale is 5: Mildly [...] procedure was Urgent. The indication for ?the forestry laborer visit is stable kn own CAD. [...] guiding catheter an d a 3.5 Fr [facility] [address] ??20 Mhz ?using Manual pullback. [...] A premounted 2.00 x 26 mm Hardeep Meriwether (TUCKER) ? was deployed wi a maximum [...] Wedelivered along 2.0 x 26 mm HARDEEP Meriwether ? TUCKER stent and p ositioned it [...] dose administered prior to arrival in the forestry laborer. ?Recommended anti-platelet/anti- thrombotic regimen: ?Continue aspirin [...] may require ?modification of this regimen. C [facility] Interventional Cardiology for ?questions. ?The 1 [...] using a 2.0 x 26 mm HARDEEP Meriwether TUCKER stent. ?This completes the revasculariz ation [...] Vitaliy Nobles MD - 03/06/2022 [facility] Cardiac Catheterization/Intervention Re port Patient Name: Don Fatima Procedure Date: 01/30/2022 A #: [id number] Primary Physician: Vitaliy Nobles Case #: [id number] File Name: [id number] Catheterization Order Number: [id number] [facility] Final Report [place], [place] Patient Name: Don Fatima ID#: [...] e was Urgent. The indication for the forestry laborer visit is stable known CAD. Chest [...] 1.5 guiding catheter and a 3.[address] [facility] [address] 20 Mhz using Manual pullback. Imaging [...] A premounted 2.00 x 26 mm Hardeep Meriwether (TUCKER) was deployed with a maximum inflation [...] along 2. 0 x 26 mm HARDEEP Meriwether TUCKER stent and positioned it at the [...] administered prior t o arrival in the forestry laborer. Recommended anti-platelet/anti-thrombot ic regimen: Continue aspirin [...] using a 2.0 x 26 mm HARDEEP Meriwether TUCKER stent. This completes the revascularization of [...] POC Glucose 212 (H) 65 - 199 [facility] Comment: Supplemental ranges: <140 mg/dL before meals <180 mg/dL all other times of the day Specimen Anatomical Collection Method Collection Time Receive d Time (Source) Location / / Volume Laterality Blood 01/30/2022 9:04 AM 2 9:04 EDT AM EDT Vitaliy Nobles MD POINT OF CARE TEST ORDERABLE S Performing Organization Address City/[facility]/ZIP [place] [address] (ABNORMAL) POCT Glucose (01/30/2022 8:10 AM EDT) athologist Signature POC Glucose 224 (H) 65 - 199 [facility] mg/dL [facility] Comment: Supplemental ranges: <140 mg/dL before meals <180 mg/dL all other times of the day Specimen Anatomical Collection Method Collection Time Receive d Time (Source) Location / / Volume Laterality Blood 01/30/2022 8:10 AM 2 8:10 EDT AM EDT Vitaliy Nobles MD POINT OF CARE TEST ORDERABLE S Performing Organization Address City/[facility]/ZIP Code [place] [address] documented in this encounter Visit Diagnoses Diagnosis ASCVD (arteriosclerotic cardiovascular d isease) Unspecified cardiovascular disease 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 ASHD (arteriosclerotic heart disease) Coronary atherosclerosis of unspecified type of vessel, [place] or graft ASCVD (arteriosclerotic cardiovascular d isease) Unspecified cardiovascular disease documented in this encounter Admitting Diagnoses Diagnosis CAD (coronary artery disease) Coronary atherosclerosis of unspecified type of vessel, [place] or graft documented in this encounter Administered [...] Procedure), Routine niCARdipine (Cardene) (100 mcg/mL) dilution (FISHERY BIOLOGIST) (CANCELED ) 0927 (Given - Provider: Vitaliy [...] (Intra-Procedure) documented in this encounter Care Teams Buildings And Grounds Superintendent Relationship Specialty Start Date End Date Lovely Vicente MD PCP - General 04/16/[address] [place] [address] documented as of this encounter
--- OUTSIDE RECORDS SUMMARY | 2022-03-23 09:33 | XMS_ITS | Encounter Summary ---
:1945 Author Organization [facility] [place] [address] Care Team Providers Name Role Phone Lovely Vicente MD Primary Care Provider Encounter Details Date Type Department Care Team Description 02/24/2022 Orders Only Cardiology at [facility] [place] Poole, Chronic systolic heart [facility] [place] [address] Cardiology Dept [place], [place] [address] Social History Tobacco Use Types [...] [facility] ER DR CARLYLE [place], [place] [address] (Wo rk) 05/28/2022 Appointment Cardiology Zulma Dolan MD [facility] er Dr [place], [place] [address] (Wo rk) 05/28/2022 Laboratory Appointment Lab 05/28/2022 Office Visit Cardiology Zulma Dolan MD [facility] [place] [address] Liz Poole PA [facility] [place] [address] 06/10/2022 Office Visit Dermatology Laura Scherer MD [facility] ER DR LEZAMA RD-DERMAT [place], [place] 0[address] (Wo rk) documented as of this encounter Visit Diagnoses Diagnosis Chronic systolic heart failure documented in this encounter Care Teams Cylinder Filler Relationship Specialty Start Date End Date Lovely Vicente MD PCP - General 04/16/[address] [place] [address] documented as of this encounter
--- OUTSIDE RECORDS SUMMARY | 2022-03-23 09:33 | XMS_ITS | Encounter Summary ---
:1945 [place] [address] Care Team Providers Name Role Phone Lovely Vicente MD Primary Care Provider Reason for Visit Reason Onset Date Comments Follow-up 03/06/2022 Dave Bueno Encounter Details Date Type Department Care Team Description 03/06/2022 Telephone Cardiology at [facility] Martha Comer, Follow-up ([facility] VAMSI Start) [place] [address] Social History Tobacco Use Types Packs/Day [...] pt had gotten his labs done at [facility] yesterday. Results received, scanned and entered [...] MD [facility] DR TADEO [place], [place] 0[address] (Wo rk) 05/28/2022 Appointment Cardiology Zulma Dolan MD [facility] Dr [place], [place] [address] (Wo rk) 05/28/2022 Laboratory Appointment Lab 05/28/2022 Office Visit Cardiology Zulma Dolan MD [facility] [place] [address] Liz Poole PA [facility] [place] [address] 06/10/2022 Office Visit Dermatology Laura Scherer MD [facility] DR TEJA GR-DERMAT [place], [place] 0[address] (Wo rk) documented as [...] filedocumented in this encounter Care Teams Home Health Clinician Relationship Specialty Start Date End Date Lovely Vicente MD PCP - General 04/16/[address] [place] [address] documented as of this encounter
--- OUTSIDE RECORDS SUMMARY | 2022-03-23 09:33 | XMS_ITS | Encounter Summary ---
:1945 Author Organization [facility] Address [facility] [place] [address] Care Team Providers Name Role Phone Lovely Vicente MD Primary Care Provider Reason for Visit Reason Onset Date Comments Medication Refill 03/06/2022 Metoprolol Succinate Encounter Details Date Type Department Care Team Description 03/06/2022 Refill Cardiology at [facility] Liz Poole PA Medication [facility] ([place] toprolol Succinate) [place] [address] Cardiology Dept [phone] [place], [place] [address] (Wo rk) Social History Tobacco [...] Nobles MD [facility] DR CARLYLE [place], [place] [address] (Wo rk) 05/28/2022 Appointment Cardiology Zulma Dolan MD [facility] Dr [place] 0[address] (Wo rk) 05/28/2022 Laboratory Appointment Lab 05/28/2022 Office Visit Cardiology Zulma Dolan MD [facility] [place] [address] Liz Poole PA [facility] [place] [address] 06/10/2022 Office Visit Dermatology Laura Scherer MD [facility] ER DR TEJA GR-DERMAT [place], [place] 0[address] (Wo rk) documented as of this encounter Visit Diagnoses Diagnosis Chronic systolic heart failure Cardiomyopathy, ischemic Other specified forms of chronic ischemi c heart disease documented in this encounter Care Teams Channeler Runner Relationship Specialty Start Date End Date Lovely Vicente MD PCP - General 04/16/[address] [place] [address] documented as of this encounter
--- OUTSIDE RECORDS SUMMARY | 2022-03-23 09:34 | XMS_ITS | Encounter Summary ---
:1945 [place] [address] Care Team Providers Name Role Phone Lovely Vicente MD Primary Care Provider Encounter Details Date Type Department Care Team Description 12/25/2021 Office Visit Cardiology at [facility] Liz Poole, Chronic systolic heart [facility] [place] [address] Cardiology Dept [phone] [place], [place] 0[address] Social History Tobacco Use Types [...] As per DC Summary - Admitted to [facility] on 12/08/21, transferred from [facility], respiratory distress with hypoxia 86% on RA. [...] mg PO daily in place of Lasix. Ennis is new for him and he will [...] (DAPT) Recommendations above ? TTE from [facility] 12/08/21 ?? 07/28/2019 Echocardiogram: SUMMARY: 1. The [...] regurgitation present. 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 Post-op atrial fibrillation [id number] (CHF, HTN, DM, vascular disease, thromboembolism) Eliquis 7. PAD 08/06/2017: Right 1st, 2nd, 3rd toe amputation 08/11/2017: Left??femoral arterial access, RLE??angiogram, Balloon angioplasty of R PT 10/25/2017: right popliteal-pedal bypass at [facility] 8. Hypothyrodism S/p thyroidectomy for goiter Levothyroxine ?? Plan: 1 month follow up with labs Liz Poole PA-C 12/25/2021 documented in this encounter Plan of Treatment Upcoming Encounters Date Type Specialty Care Team Description 03/26/2022 Office Visit Cardiology Vitaliy Nobles MD [facility] CARDIOLOGY [place], [place] 0375 (Wo rk) 05/28/2022 Appointment Cardiology Zulma Dolan MD [facility] [place], [place] 0375 (Wo rk) 05/28/2022 Laboratory Appointment Lab 05/28/2022 Office Visit Cardiology Zulma Dolan MD [facility] [place] [address] Liz Poole PA [facility] [place] [address] 06/10/2022 Office Visit Dermatology Laura Scherer MD [facility] DR TEJA GR-DERMAT OLOGY [place], [place] 0375 (Wo rk) documented as of this encounter Results (ABNORMAL) pro-Brain Natriuretic Peptide (12/25/2021 7:46 AM EDT) athologist Signature ProBNP 1,380 (H) <=124 [facility] pg[facility]mL [facility] Specimen Anatomical Collection Method Collection Time Receive d Time (Source) Location / / Volume Laterality Blood 12/25/2021 7:46 AM 8:01 EDT AM EDT Resulting Agency Comment Spec In Lab Zulma Plunkett MD CHEMISTRY ORDERABLES Performing Organization Address City/State/[place] [address] (ABNORMAL) Basic Metabolic Panel (non-fasting) (12/25/2021 7:46 AM EDT) athologist Signature Glucose Lvl 272 (H) 65 - [address] [facility] mg/dL [facility] Comment: Diabetes: >=200 mg/dL plus symp toms BUN 62 (H) 10 - 20 mg/dL [facility] Creatinine 1.81 (H) 0.80 - 1.50 mg/dL [facility] Sodium 134 (L) 135 - [...] City/State/[place] [address] documented in this encounter Visit Diagnoses Diagnosis Chronic systolic heart failure documented in this encounter Care Teams Busher Helper Relationship Specialty Start Date End Date Lovely Vicente MD PCP - General 04/16/[address] [place] [address] documented as of this encounter
--- OUTSIDE RECORDS SUMMARY | 2022-03-23 09:34 | XMS_ITS | Encounter Summary ---
:1945 Author Organization [facility] [place] [address] Care Team Providers Name Role Phone Lovely Vicente MD Primary Care Provider Reason for Visit Reason Onset Date Comments Medication Refill 12/12/2021 Torsemide Encounter Details Date Type Department Care Team Description 12/12/2021 Refill Cardiology at [facility] Janneth Padilla, Medication Refill [facility] STEPHANIE (Torsemide) [place] [address] CARDIOLOGY DEPT. [place], [place] 0[address] (Wo rk) Social History Tobacco [...] MD [facility] DR CARLYLE [place], [place] 0[address] (Wo rk) 05/28/2022 Appointment Cardiology Zulma Dolan MD [facility] Dr [place], [place] [address] (Wo rk) 05/28/2022 Laboratory Appointment Lab 05/28/2022 Office Visit Cardiology Zulma Dolan MD [facility] [place] [address] Liz Poole PA [facility] [place] [address] 06/10/2022 Office Visit Dermatology Laura Scherer MD [facility] DR TEJA GR-DERMAT [place], [place] 0[address] (Wo rk) documented as of this encounter Visit Diagnoses Diagnosis Chronic systolic heart failure documented in this encounter Care Teams Lead Generation Representative Relationship Specialty Start Date End Date Lovely Vicente MD PCP - General 04/16/[address] [place] [address] documented as of this encounter
--- OUTSIDE RECORDS SUMMARY | 2022-03-23 09:34 | XMS_ITS | Encounter Summary ---
:1945 Author Organization [facility] [place] [address] Care Team Providers Name Role Phone Lovely Vicente MD Primary Care Provider Encounter Details Date Type Department Care Team Description 12/12/2021 Telephone Cardiology at [facility] [place] [address] Social History Tobacco Use Types Packs/Day [...] - 12/12/2021 11:36 AM EDT RTC to [place] regarding pharmacists questions as to whether the [...] MD [facility] ER DR TADEO [place], [place] 0[address] (Wo rk) 05/28/2022 Appointment Cardiology Zulma Dolan MD [facility] [place], [place] 0[address] (Wo rk) 05/28/2022 Laboratory Appointment Lab 05/28/2022 Office Visit Cardiology Zulma Dolan MD [facility] [place] [address] Liz Poole PA [facility] [place] [address] 06/10/2022 Office Visit Dermatology Laura Scherer MD [facility] DR LEZAMA RD-DERMAT O[place], [place] [address] (Wo rk) documented as of this encounter Visit Diagnoses Not on filedocumented in this encounter Care Teams Recycling Specialist Relationship Specialty Start Date End Date Lovely Vicente MD PCP - General 04/16/15 [facility] [address] [place] [address] documented as of this encounter
--- OUTSIDE RECORDS SUMMARY | 2022-03-23 09:34 | XMS_ITS | Encounter Summary ---
:1945 Author Organization [facility] [place] [address] Care Team Providers Name Role Phone Lovely Vicente MD Primary Care Provider Encounter Details Date Type Department Care Team Description 12/15/2021 Telephone Cardiology at [facility] Barbara [place]era, [place] [address] Social History Tobacco Use Types Packs/Day [...] Nobles MD [facility] DR TADEO [place], [place] 0[address] (Wo rk) 05/28/2022 Appointment Cardiology Zulma Dolan MD [facility] [place], [place] 0[address] (Wo rk) 05/28/2022 Laboratory Appointment Lab 05/28/2022 Office Visit Cardiology Zulma Dolan MD [facility] [place] [address] Liz Poole PA [facility] [place] [address] 06/10/2022 Office Visit Dermatology Laura Scherer MD [facility] DR LEZAMA RD-DERMAT [place], [place] 0[address] (Wo rk) documented as of this encounter Visit Diagnoses Not on filedocumented in this encounter Care Teams Financial Business Analyst Relationship Specialty Start Date End Date Lovely Vicente MD PCP - General 04/16/[address] [place] [address] documented as of this encounter
--- OUTSIDE RECORDS SUMMARY | 2022-03-23 09:34 | XMS_ITS | Encounter Summary ---
:1945 Author Organization [facility] [place] [address] Care Team Providers Name Role Phone Lovely Vicente MD Primary Care Provider Encounter Details Date Type Department Care Team Description 12/25/2021 Laboratory Appointment Lab 3L [facility] [place] [address] Social History Tobacco Use Types Packs/Day Years [...] Nobles MD [facility] [address] TADEO [place], [place] 0[address] (Wo rk) 05/28/2022 Appointment Cardiology Zulma Dolan MD [facility] Dr [place] 0[address] (Wo rk) 05/28/2022 Laboratory Appointment Lab 05/28/2022 Office Visit Cardiology Zulma Dolan MD [facility] [place] [address] Liz Poole PA [facility] [place] [address] 06/10/2022 Office Visit Dermatology Laura Scherer MD [facility] ER DR LEZAMA RD-DERMAT OLOGY [place], [place] [address] (Wo rk) documented as [...] (ABNORMAL) Differential, Automated (12/25/2021 7:46 AM EDT) [facility] Method Time Signature Neutrophils % 82.6 % [facility] Neutr Abs (ANC) 9.37 (H) 1.70 - [facility] 6.10 [facility] x10(3)/[facility] L LABORATORY Lymphocytes % 7.1 % [facility] Lymphocytes Abs 0.8 (L) 0.9 - 3.2 [facility] x10(3)/[facility] LABORATORY Monocytes % 8.8 % [facility] Monocyte Abs 1.0 (H) 0.3 - 0.9 [facility] x10(3)/[facility] LABORATORY Eosinophils % 0.4 % [facility] Eosinophils Abs 0.0 0.0 - 0.4 [facility] x10(3)/[facility] LABORATORY Basophils % 0.4 % [facility] Basophils Abs 0.0 0.0 - 0.1 [facility] x10(3)/[facility] LABORATORY Immature [...] Organization Address City/State/[place] [address] (ABNORMAL) Hemogram (12/25/2021 7:46 AM EDT) Analysis Performed At Patho logist Time Signature WBC 11.4 (H) 4.0 - 9.5 [facility] x10(3)/[facility] LABORATORY RBC 4.23 (L) 4.58 - [facility] R[facility]AN 5.54 [facility] x10(6)/[facility] LABORATORY Hemoglobin 12.3 (L) 13.7 - [facility] 16.5 g/dL [facility]OR[facility]ORY Hematocrit 37.7 (L) 40.5 - [facility] 48.5 % [facility] MCV 89.1 82.9 - [facility] 93.1 fL [facility] MCH 29.1 27.5 - [place] [facility] 32.1 pg [facility] MCHC 32.6 32.0 - [facility] 35.7 g/dL [facility] Platelets 215 145 - 357 [facility] x10(3)/[facility] LABORATORY RDWSD 49.8 (H) 36.0 - [facility] 45.0 [facility] LABORATORY RDWCV 15.2 (H) 11.4 - [facility] 13.8 % [facility] LABORATORY MPV 9.2 7.6 - 12.9 [facility] LABORATORY nRBC % Auto 0.0 % [facility] nRBC Abs Auto 0.000 0.000 - [facility] 0.000 [facility] x10(3)/[facility] LABORATORY Specimen Anatomical Collection Method Collection Time Receive d Time (Source) Location / / Volume Laterality Blood 12/25/2021 7:46 AM 8:01 EDT AM EDT Resulting Agency Comment Spec In Lab Liz BROWN HEMATOLOGY ORDERABLES Performing Organization Address City/State/[place] [address] (ABNORMAL) Basic Metabolic Panel (non-fasting) (12/25/2021 7:46 AM EDT) athologist Signature Glucose Lvl 272 (H) 65 - 199 [facility] mg/dL [facility] Comment: Diabetes: >=200 mg/dL plus symp toms BUN 62 (H) 10 - 20 mg/dL [facility]ORY Creatinine 1.81 (H) 0.80 - 1.50 mg/dL [facility] [...] Address City/State/[place] [address] (ABNORMAL) pro-Brain Natriuretic Peptide (12/25/2021 7:46 AM EDT) P athologist Signature ProBNP 1,380 (H) <=124 [facility] pg/mL [facility] Specimen Anatomical Collection Method Collection Time Receive d Time (Source) Location / / Volume Laterality Blood 12/25/2021 7:46 AM 2 8:01 EDT AM EDT Resulting Agency Comment Spec In Lab Zulma Plunkett MD CHEMISTRY ORDERABLES Performing Organization Address City/State/[place] [address] documented in this encounter Visit Diagnoses Diagnosis Chronic systolic heart failure documented in this encounter Care Teams Pants Maker Relationship Specialty Start Date End Date Lovely Vicente MD PCP - General 04/16/[address] [place] [address] documented as of this encounter
--- OUTSIDE RECORDS SUMMARY | 2022-03-23 09:34 | XMS_ITS | Encounter Summary ---
:1945 Author Organization [facility] [place] [address] Care Team Providers Name Role Phone Lovely Vicente MD Primary Care Provider Encounter Details Date Type Department Care Team Description 12/24/2021 Telephone Public Health at [facility] [place] [address] Social History Tobacco Use Types Packs/Day [...] [facility] ER DR TADEO [place], [place] [address] (Wo rk) 05/28/2022 Appointment Cardiology Zulma Dolan MD [facility] [place], [place] [address] (Wo rk) 05/28/2022 Laboratory Appointment Lab 05/28/2022 Office Visit Cardiology Zulma Dolan MD [facility] [place] [address] Liz Poole PA [facility] [place] [address] 06/10/2022 Office Visit Dermatology Laura Scherer MD [facility] DR [address]-DERMAT [place], [place] 0[address] (Wo rk) documented as of this encounter Visit Diagnoses Not on filedocumented in this encounter Care Teams Transfusion Nurse Relationship Specialty Start Date End Date Lovely Vicente MD PCP - General 04/16/[address] [place] [address] documented as of this encounter
--- OUTSIDE RECORDS SUMMARY | 2022-03-23 09:34 | XMS_ITS | Encounter Summary ---
:1945 Author Organization [facility] [place] [address] Care Team Providers Name Role Phone Lovely Vicente MD Primary Care Provider Reason for Referral Consultation (Routine) - Closed Specialty Diagnoses / Referred By Contact Referred To Contact Procedures Cardiac Rehabilitation Diagnoses Acute HFrEF (heart failure with reduced ejection fraction) Janneth Padilla, Cardiac Rehab, [address] [place] CARDIOLOGY DEPT. [address] [place] [address] Referral ID Status Reason Start Date Expiration Date Visits V isits Requested Authorized [id number] Closed Consult, 12/12/2021 12/12/2022 36 36 Test & Treat Reason for Visit Auth/Cert Specialty Diagnoses / Procedures Referred By Contact Refer red To Contact Diagnoses NSTEMI Procedures emerg ipi Referral ID Status Reason Start Date Expiration Date Visits Requ ested Visits Authorized [id number] 1 1 Encounter Details Date Type Department Care Team Description 12/08/2021 - Hospital Encounter Intermediate Cardiac Iker Cuevas MD [facility] [place] [address] Non-ST elevation myocardial infarction ( NSTEMI); 12/12/2021 Care Unit Ifeanyi Rene MD [facility] [place] [address] ST elevation myocardial infarction (STEM I), unspecified artery; [facility] Acute HFr EF (heart failure with reduced ejection fraction) [place] [address] Social History Tobacco Use Types Packs/Day Years [...] Don Fatima Patient Age: 76 y.o. Language: Syriac Race: White Ethnicity: Not nor Admit date: [...] Peter PA-C Kelly LaFlamme PA-C Cardiovascular Medicine [phone] Discharge Diagnoses (Hospital Problems) and Secondary Diagnoses [...] catheter and a 3.5 Fr [place] 20 Mhz using Manual pullback. Imaging was successful. Image quality was good. The ostial LCX showed moderate diffuse atherosclerotic plaque with scattered three quadrant calcification. Measurements were performed after pre-dilation. Post Intervention: The stent was well expanded and apposed. Intravascular Ultrasound was performed in the distal LM using a 7 Fr EBU 3.75 guiding catheter and a 3.5 Fr [place] 20 Mhz using Manual pullback. Imaging was [...] mg PO daily in place of lasix. [place] is new for him and he will [...] to be ~$24/mo; affordable per patient. Post [facility] he was started on Eliquis. He continued [...] appointments: During 8am-5pm Wednesday through Wednesday call [phone] to speak with a nurse in the cardiology clinic All other times call [phone] and ask to speak to the beef pusher consumer analyst. Return to work: One week Driving: No driving for 48 hours after catheterization. Follow up Appointments: PCP Lovely Vicente MD [phone] to see patient at the end of December for annual check up. Patient to see Dr. Lorenzana at 1120 am at December 19 for a post hospital check up. Slabbing Machine Operator Dr. De Oliveira to see you in [facility]. Left a message for office to set a date and time. Please call [phone] Nobles to see the patient for a same day cath in 2-3 weeks from now. Office to call with a date and time. For questions please call [phone] Home oxygen therapy: N/A Arrangements for VNA/home care: none Future Appointments and Orders Future Orders Complete By Expires Basic Metabolic Panel (non-fasting) [LAB15 Custom] 12/19/2021 (Approximate) 12/12/2022 Process Instructions: INCLUDES: Calcium, BUN, Creat, GFR, Glucose, Lytes Scheduling Instructions: Comments: Questions: Referral to Cardiac Rehab [QNS611 Custom] As directed Process Instructions: If no [...] appointments: During 8am-5pm Wednesday through Wednesday call [phone] to speak with a nurse in the cardiology clinic All other times call [phone] and ask to speak to the beef pusher consumer analyst. Return to work: One week Driving: No driving for 48 hours after catheterization. Follow up Appointments: PCP Lovely Vicente MD [phone] to see patient at the end of December for annual check up. Patient to see Dr. Lorenzana at 1120 am at December 19 for a post hospital check up. Slabbing Machine Operator Dr. De Oliveira to see you in [facility]. Left a message for office to set a date and time. Please call [phone] Nobles to see the patient for a same day cath in 2-3 weeks from now. Office to call with a date and time. For questions please call [phone] Home oxygen therapy: N/A Arrangements for VNA/home [...] Progress Note Patient Name: Don Fatima Service: VOIP NETWORK TECHNICIAN / PA Responsible Attending: Ifeanyi Truong MD [...] was given Lasix 80mg IV x1 in petroleum refinery laborer. Tolerated procedure well. Home today at [...] 0.92* 0.89* Pertinent Radiographic/Diagnostic Results: R/[facility] 12/10/21 Hemodynamics: Right Heart Pressures Resting: Syst [...] with MD Janneth Neville PA 12/12/2021 Pager [phone] Associated attestation - Ifeanyi Truong MD - [...] [facility] [place] Endocrinology Diabetes Management Pager [phone] 20 minutes of this 35 minute visit [...] Progress Note Patient Name: Don Fatima Service: VOIP NETWORK TECHNICIAN / PA Responsible Attending: Iker Cuevas MD [...] was given Lasix 80mg IV x1 in petroleum refinery laborer. Tolerated procedure well. Review of Systems: [...] 0.92* 0.89* Pertinent Radiographic/Diagnostic Results: R/[facility] 12/10/21 Hemodynamics: Right Heart Pressures Resting: Syst [...] and answered his questions. Iker Cuevas MD [facility] Total time spent on review of records prior to visit, face to face time with patient during visit, documentation, and coordination of care with other clinicians: 25 minutes. . Iker Cuevas MD - 12/10/2021 12:30 PM EDT Images from the original note were not included. Inpatient Cardiology Progress Note Patient Name: Don Fatima Service: VOIP NETWORK TECHNICIAN / PA Responsible Attending: Iker Cuevas MD [...] was given Lasix 80mg IV x1 in petroleum refinery laborer. Tolerated procedure well. Review of Systems: [...] ??? heparin (porcine) infusion 1,600 Units/hr (12/09/21 5757) PRN Meds:ipratropium-albuteroL, senna-docusate, bisacodyL, sodium chloride 0.9 [...] TROPONINT 1.13* 0.92* 0.89* Pertinent Radiographic/Diagnostic Results: /[facility] 12/10/21 Hemodynamics: Right Heart Pressures Resting: Syst [...] Discussed with MD Migdalia Peter PA-C Pager #[phone] 12/10/2021 Cardiology Attending Note I have seen [...] updated and given pictures. Iker Cuevas MD [facility] Total time spent on review of records prior to visit, face to face time with patient during visit, documentation, and coordination of care with other clinicians: 35 minutes. Iker Cuevas MD - 12/09/2021 7:28 AM EDT Images from the original note were not included. Inpatient Cardiology Progress Note Patient Name: Don Fatima Service: VOIP NETWORK TECHNICIAN / PA Responsible Attending: Iker Cuevas MD [...] ??? heparin (porcine) infusion 1,600 Units/hr (12/09/21 9588) PRN Meds:ipratropium-albuteroL, sodium chloride 0.9 % (flush), [...] Continue reduced dose Lantus 28 units nightly. MLII and moderate correctional SSI. ?? #CKD stage [...] Discussed with MD Migdalia Peter PA-C Pager #[phone] 12/09/2021 Cardiology Attending Note I have seen [...] < 70 -CPAP tonight Iker Cuevas MD [facility] Total time spent on review [...] at [facility] OR ??? PRO AMPUTATION FOOT, TRANSMETATARSAL Right 08/09/2017 AMPUTATION, TRANSMETATARSAL (WRVU 12.71) performed by Yonathan Smith MD at [facility] OR ??? PRO CABG, ARTERIAL, SINGLE N/A 07/07/2017 @CABG, USING ARTERIAL GRAFT;SINGLE ARTERIAL GRAFT (WRVU 33.75) performed by Yuan Retana MD at [facility] OR ??? PRO CABG, ARTERY-VEIN, TWO N/A 07/07/2017 @CABG, TWO VENOUS GRAFTS & ARTERIAL GRAFT (WRVU 7.93) performed by Yuan Retana MD at [facility] OR ??? PRO COLONOSCOPY, REMV LESN, SNARE 01/16/2014 COLONOSCOPY, POLYPECTOMY, REMOVAL LESION BY SNARE performed by Nohemi Jaimes MD at [facility] ENDOSCOPY ??? PRO DRESSING CHANGE UNDER ANESTHESIA Right 08/11/2017 (MSURG) DRESSING CHANGE (FOR OTHER THAN IVAN) UNDER ANES. (WRVU 0.86) performed by Lamar Smith MD at [facility] OR ??? PRO ENDOSCOPY W/VIDEO-ASST VEIN HARVEST, CABG Right 07/07/2017 ENDOSCOPIC HARVEST VEIN(S) FOR CABG (WRVU 0.31) performed by Yuan Retana MD at [facility] OR ??? PRO THYROIDECTOMY 03/28/2013 THYROIDECTOMY, TOTAL OR COMPLETE performed by Manny Mcknight MD at [facility] MAIN OR Significant Family History: [...] ADRs. Trend troponins. Admission EKG. [facility] 12/09; consented. TTE. Telemetry monitoring, daily [...] control; n.p.o. after midnight for [facility] #DVT prophy- heparin infusion #GI prophy- PPI Discussed with MD Morgan Peter PA-C APP2 pager [phone] 12/08/2021 Cardiology Attending Note I have seen [...] know patient is here. Iker Cuevas MD [facility] documented in this encounter Miscellaneous [...] Type: *No Product type* / Secondary Insurance: [employer] [place] Prescription Coverage: Yes This plan was formulated [...] cath without complications. Migdalia Parker PA-C Pager #[phone] 12/10/2021 Initial Assessments - Nick Georges RN [...] COVID test: Lab Results Component Value Date [id number] Not Detected 12/08/2021 Past medical History: Past [...] spouse would be surrogate decision maker per [place] surrogate decision making law. (Only good for 180 days) Any patient receiving care at [facility] must abide by [place] law. The hierarchy for surrogate decision making [...] (i) The agent with financial power of civil attorney or a conservator appointed in accordance [...] standard, cane - straight Home Address: [address] [place] [address] [place] [address] Social & Family Supports: All names listed below confirmed with patient as current and correct Extended Emergency Contact Information Primary Emergency Contact: Kisha Fatima Address: [address] [place] [address] [place] [address] [facility] Mobile Relation: Spouse Secondary Emergency Contact: Elba Swenson Address: [address] Mobile Relation: Child Current Care Provided [...] / Secondary Insurance: [employer] [place] Prescription Coverage: Yes Preferred Pharmacy: [facility] Home Delivery [facility] [address] [address] - [place], [place] - [address] [place] [id number] [place] Status: Patient is a : unable to assess Primary Care Provider: Lovely Vicente MD [phone] Patient/Caregiver Goals of Treatment: Get out of here Potential Needs for Transition of Care: none Agency Referrals: none patient has used [facility] in the past Transportation: no concerns Transportation Anticipated: family or friend will provide Concerns to be Addressed: patient refuses services, discharge planning Assessment: Patient is admitted to [facility] Service pager [phone] for 76 y.o.??male??with h/o??CAD s/p 3vCABG (THOMPSON-LAD, [...] status on current unit. Nick Georges RN manager requirements, Office of Care Management Pager: [phone] Brief Op Note - Vitaliy Nobles MD - 12/10/2021 8:31 AM EDT Images from the original note were not included. [facility] 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 Diabetes History: Don Fatima has had diabetes for 10 years. He has been on insulin for the last several years andis managed by his PCP. Lives in [place], [place] with his . States that he [...] Hold] heparin (porcine) infusion 1,600 Units/hr (12/09/21 1797) PRN: [SEP Hold] ipratropium-albuteroL, [SEP Hold] senna-docusate, [...] gm carb ratio for each meal) termite technician diabetes care: Medications - Outpatient treatment regimen recommendations pending based on the hospital course. Monitoring - continue BG tid ac & hs Diet - low fat/low carb diet Exercise - weight-bearing exercise 30 min/day, as tolerated Thank you for allowing us to provide care for your patient Desirae Johnie QUINONES Endocrinology Pager [phone] 70 minutes of this 80 minute visit [...] to remain on Med/Surg floor, please page [phone] for any further questions or concerns. LANDON [...] for further details. STEPHANIE Rebolledo 12/08/2021 Pager [phone] documented in this encounter Plan of Treatment Upcoming Encounters Date Type Specialty Care Team Description 03/26/2022 Office Visit Cardiology Vitaliy Nobles MD [facility] [address] [place], [place] [address] (Wo rk) 05/28/2022 Appointment Cardiology Zulma Dolan MD [facility] [place], [place] [address] (Wo rk) 05/28/2022 Laboratory Appointment Lab 05/28/2022 Office Visit Cardiology Zulma [place]olan [place] [address] Liz Poole PA [facility] [place] [address] 06/10/2022 Office Visit Dermatology Laura Scherer MD [facility] [address]DERMAT OLOGY [place], [place] [address] (Wo rk) Scheduled Referrals Name [...] 215 (H) 65 - 199 [facility] mg/dL [facility]OR[facility] Comment: Supplemental ranges: <140 mg/dL before meals <180 mg/dL all other times of the day Specimen Anatomical Collection Method Collection Time Receive d Time (Source) Location / / Volume Laterality Blood 12/12/2021 7:42 AM 7:42 EDT AM EDT Ifeanyi Truong MD POINT OF CARE TEST ORDERABLE S Performing Organization Address City/State/[place] [address] (ABNORMAL) Differential, Automated (12/12/2021 4:51 AM EDT) athologist Signature Neutrophils % 75.4 % [facility] LABOR[facility]ORY Neutr Abs (ANC) 5.95 1.70 - [facility] 6.10 [facility] x10(3)/[facility] LABORATORY Lymphocytes % 12.2 % [facility] LABORATORY Lymphocytes Abs 1.0 0.9 - 3.2 [facility] x10(3)/[facility] LABORATORY Monocytes % 9.5 % [facility] LABORATORY Monocyte Abs 0.8 0.3 - 0.9 [facility] x10(3)/[facility] LABORATORY Eosinophils % 1.8 % [facility] LABOR[facility]ORY Eosinophils Abs 0.1 0.0 - 0.4 [facility] x10(3)/[facility] LABORATORY Basophils % 0.5 % [facility] LABORATORY Basophils Abs 0.0 0.0 - 0.1 [facility] x10(3)/[facility] LABORATORY Immature Gran [...] Gran Abs 0.05 (H) 0.00 - 0.04 x10(3)/[facility] LABORATORY Specimen Anatomical Collection Method Collection Time Receive d Time (Source) Location / / Volume Laterality Blood 12/12/2021 4:51 AM 5:06 EDT AM EDT Resulting Agency Comment Spec In Lab Bijan Sun MD HEMATOLOGY ORDERABLES Performing Organization Address City/State/[place] [address] (ABNORMAL) Hemogram (12/12/2021 4:51 AM EDT) Analysis Performed At Patho logist Time Signature WBC 7.9 4.0 - 9.5 [facility] x10(3)/[facility] LABORATORY RBC 4.19 (L) 4.58 - [facility] 5.54 [facility] x10(6)/[facility] LABORATORY Hemoglobin 12.1 (L) 13.7 - [facility] 16.5 g/dL [facility] LABORATORY Hematocrit 36.7 (L) 40.5 - [facility] 48.5 % [facility] LABORATORY MCV 87.6 82.9 - [facility] 93.1 [facility] LABORATORY MCH 28.9 27.5 - [facility] 32.1 pg [facility] LABORATORY MCHC 33.0 32.0 - [place] 35.7 g/dL [facility] LAB[facility]ORY Platelets 231 145 - 357 [facility] x10(3)/[facility] LABORATORY RDWSD 47.2 (H) 36.0 - [place] 45.0 [facility] LABORATORY RDWCV 14.6 (H) 11.4 - [facility] SU 13.8 % [facility] LABORATORY MPV 9.5 7.6 - 12.9 [facility] LABORATORY nRBC % Auto 0.0 % [facility] LABORATORY nRBC Abs Auto 0.000 0.000 - [facility] 0.000 [facility] x10(3)/[facility] LABORATORY Specimen Anatomical Collection Method Collection Time Receive d Time (Source) Location / / Volume Laterality Blood 12/12/2021 4:51 AM 2 5:06 EDT AM EDT Resulting Agency Comment Spec In Lab Bijan Sun MD HEMATOLOGY ORDERABLES Performing Organization Address City/State/[place] [address] (ABNORMAL) Prothrombin Time (12/12/2021 4:51 AM EDT) P athologist Signature PT 14.9 (H) 9.4 - 12.5 [facility] LABORATORY INR 1.3 [facility] [...] Organization Address City/State/[place] [address] (ABNORMAL) BMP w/fasting Glucose (12/12/2021 4:51 AM EDT) athologist Signature Glucose 152 (H) 65 - 99 [facility] Fasting mg/dL [facility] Comment: ?Fasting* Glucose Interpretive C riteria [...] BUN 52 (H) 10 - 20 mg/dL [facility] LABORATORY Creatinine 1.72 (H) 0.80 - 1.50 mg/dL [facility] LABORATORY Sodium 143 135 - 145 mmol/L [facility] LABOR[facility] Potassium 3.9 3.5 - 5.0 mmol/L [facility] LABORATORY [...] 15 mmol/L [facility] LABOR[facility]ORY Calcium 8.9 8.5 - 10.5 mg/dL [facility] LAB[facility] Estimated GFR 38 (L) >=60 [...] Address City/State/[place] [address] Magnesium (12/12/2021 4:51 AM EDT) P athologist Signature Magnesium 1.02 0.69 - 1.07 [facility] mmol/L [facility] LABOR[facility]ORY Specimen Anatomical Collection Method Collection Time Receive d Time (Source) Location / / Volume Laterality Blood 12/12/2021 4:51 AM 2 5:06 EDT AM EDT Resulting Agency Comment Spec In Lab Iker Cuevas MD CHEMISTRY ORDERABLES Performing Organization Address City/State/ZIP Code Phon e Number [address] POCT Glucose (12/12/2021 3:43 AM EDT) P athologist Signature POC Glucose 138 65 - 199 [facility] mg/dL [facility] Comment: Supplemental ranges: <140 mg/dL before meals <180 mg/dL all other times of the day Specimen Anatomical Collection Method Collection Time Receive d Time (Source) Location / / Volume Laterality Blood 12/12/2021 3:43 AM 2 3:43 EDT AM EDT Iker Cuevas MD POINT OF CARE TEST ORDERABLE S Performing Organization Address City/State/[place] [address] POCT Glucose (12/11/2021 11:44 PM EDT) P athologist Signature POC Glucose 124 65 - 199 [facility] mg/dL [facility] Comment: Supplemental ranges: <140 mg/dL before meals <180 mg/dL all other times of the day Specimen Anatomical Collection Method Collection Time Receive d Time (Source) Location / / Volume Laterality Blood 12/11/2021 11:44 12/11/2021 PM EDT 11:44 PM EDT Iker Cuevas MD POINT OF CARE TEST ORDERABLE S Performing Organization Address City/State/Z[place] [address] (ABNORMAL) POCT Glucose (12/11/2021 8:12 PM EDT) athologist Signature POC Glucose 200 (H) 65 - 199 [facility] mg/dL [facility] Comment: Supplemental ranges: <140 mg/dL before meals <180 mg/dL all other times of the day Specimen Anatomical Collection Method Collection Time Receive d Time (Source) Location / / Volume Laterality Blood 12/11/2021 8:12 PM 2 8:12 EDT PM EDT Iker Cuevas MD POINT OF CARE TEST ORDERABLE S Performing Organization Address City/State/[place] [address] (ABNORMAL) POCT Glucose (12/11/2021 6:50 PM EDT) P athologist Signature POC Glucose 245 (H) 65 - 199 [facility] mg/dL [facility] Comment: Supplemental ranges: <140 mg/dL before meals <180 mg/dL all other times of the day Specimen Anatomical Collection Method Collection Time Receive d Time (Source) Location / / Volume Laterality Blood 12/11/2021 6:50 PM 2 6:50 EDT PM EDT Iker Cuevas MD POINT OF CARE TEST ORDERABLE S Performing Organization Address City/[facility]/[place]IP [place] [address] (ABNORMAL) POCT Glucose (12/11/2021 4:00 PM EDT) athologist Signature POC Glucose 383 (H) 65 - 199 [facility] Comment: Supplemental ranges: <140 mg/dL before meals <180 mg/dL all other times of the day Specimen Anatomical Collection Method Collection Time Receive d Time (Source) Location / / Volume Laterality Blood 12/11/2021 4:00 PM 2 4:00 EDT PM EDT Iker Cuevas MD POINT OF CARE TEST ORDERABLE S Performing Organization Address City/[facility]/ZIP [place] [address] (ABNORMAL) POCT Glucose (12/11/2021 12:01 PM EDT) P athologist Signature POC Glucose 342 (H) 65 - 199 [facility] mg/dL [facility] Comment: Supplemental ranges: <140 mg/dL before meals <180 mg/dL all other times of the day Specimen Anatomical Collection Method Collection Time Receive d Time (Source) Location / / Volume Laterality Blood 12/11/2021 12:01 12/11/2021 PM EDT 12:01 PM EDT Iker Cuevas MD POINT OF CARE TEST ORDERABLE S Performing Organization Address City/[facility]/ZIP [place] [address] COVID-19 PCR (12/11/2021 10:13 AM EDT) [facility] gist Method Time Signature SARS-CoV-2 Not Detected Not Detected [facility] Comment: This result should [...] diagnosis of COVID-19 is performed using the [employer] RONNA S-CoV-2 Assay as authorized by the FDA Emergency Use Authorization (EUA). This EUA assay is intended for In-vitro Diagnostic (IVD) use with respiratory sp ecimens such as nasopharyngeal swabs collected from individuals during the [place] phase of infection. This assay is performed based on the instructions for use provided by [employer] and additional guidance provided by CDC and FDA. Testing is performed in the Clinical Genomics and Advanced Technolog y Laboratory within the Department of Pathology and Laboratory Medicine at [facility], certified under the Clinical Laboratory Improvement [...] required or requested by public health a [facility], positive specimens may be sent [...] clinical management guidance information are available at [facility] Coronavirus Disease 2019 (COVID-19) webpage under Information fo r Healthcare Professionals (https://www.cdc.gov/coronavirus/2019-nc ov/hcp/index.html) Additional information about this and ot her EUA tests can be found in provider and patient fact sheets at the following FDA website: https://www.fda.gov/medical-devices/auidzvgyagb-qiuuytk-8565-edreu-25-xpuetctnr- kzt-pwzbixvbjcfmkr-afipvdv-devices/rmpnp-uebzklkkqwk-exxz SARS-Cov-2 RNA Source VOIP NETWORK TECHNICIAN Swab [facility] Specimen (Source) Anatomical Collection Method Collection Time Re ceived Time Location / / Volume Laterality Nasopharyngeal Swab 12/11/2021 10:13 0503/2022 AM EDT 11:16 AM EDT Comment: Symptoms->Surveillance Resulting Agency Comment Spec In Lab Iker Cuevas MD MICROBIOLOGY - GENERAL ORDER [place]BS[place] Performing Organization Address City/[facility]/ZIP Code Phon e Number [address] POCT Glucose (12/11/2021 7:34 AM EDT) athologist Signature POC Glucose 198 65 - 199 [facility] LABORATORY Comment: Supplemental ranges: <140 mg/dL before meals <180 mg/dL all other times of the day Specimen Anatomical Collection Method Collection Time Receive d Time (Source) Location / / Volume Laterality Blood 12/11/2021 7:34 AM 7:34 EDT AM EDT Iker Cuevas MD POINT OF CARE TEST ORDERABLE S Performing Organization Address City/State/ZIP [place] [address] (ABNORMAL) POCT Glucose (12/11/2021 5:07 AM EDT) athologist Signature POC Glucose 208 (H) 65 - 199 [facility] mg/dL [facility] LABORATORY Comment: Supplemental ranges: <140 mg/dL before meals <180 mg/dL all other times of the day Specimen Anatomical Collection Method Collection Time Receive d Time (Source) Location / / Volume Laterality Blood 12/11/2021 5:07 AM 2 5:07 EDT AM EDT Iker Cuevas MD POINT OF CARE TEST ORDERABLE S Performing Organization Address City/State/[place] [address] (ABNORMAL) Differential, Automated (12/11/2021 4:28 AM EDT) [facility] Method Time Signature Neutrophils % 79.6 % [facility] LABORATORY Neutr Abs (ANC) 7.01 (H) 1.70 - [facility] 6.10 [facility] x10(3)/[facility] L LABORATORY Lymphocytes % 9.1 % [facility] LABORATORY Lymphocytes Abs 0.8 (L) 0.9 - 3.2 [facility] x10(3)/[facility] LABORATORY Monocytes % 9.2 % [facility] LABORATORY Monocyte Abs 0.8 0.3 - 0.9 [facility] x10(3)/[facility] LABORATORY Eosinophils % 1.3 % [facility] LABORATORY Eosinophils Abs 0.1 0.0 - 0.4 [facility] x10(3)/[facility] LABORATORY Basophils % 0.5 % [facility] LABORATORY Basophils Abs 0.0 0.0 - 0.1 [facility] x10(3)/[facility] LABORATORY Immature Gran % 0.30 [...] Melisa Gran Abs 0.03 0.00 - 0.04 x10(3)/[facility] MAR Y [facility] LABORATORY Specimen Anatomical Collection Method Collection Time Receive d Time (Source) Location / / Volume Laterality Blood 12/11/2021 4:28 AM 2 4:37 EDT AM EDT Resulting Agency Comment Spec In Lab Bijan Sun MD HEMATOLOGY ORDERABLES Performing Organization Address City/State/[place] [address] (ABNORMAL) Hemogram (12/11/2021 4:28 AM EDT) Analysis Performed At Patho logist Time Signature WBC 8.8 4.0 - 9.5 [facility] x10(3)/[facility] LABORATORY RBC 4.15 (L) 4.58 - [facility] 5.54 [facility] x10(6)/[facility] LABORATORY Hemoglobin 11.9 (L) 13.7 - [facility] 16.5 g/dL [facility] LABORATORY Hematocrit 36.9 (L) 40.5 - [facility] 48.5 % [facility] LABORATORY MCV 88.9 82.9 - [facility] 93.1 [facility] LABORATORY MCH 28.7 27.5 - [facility] 32.1 pg [facility] LABORATORY MCHC 32.2 32.0 - [facility] 35.7 g/dL [facility] LABORATORY Platelets 211 145 - 357 [facility] x10(3)/[facility] LABORATORY RDWSD 48.3 (H) 36.0 - [facility] 45.0 [facility] LABORATORY RDWCV 14.8 (H) 11.4 - [facility] 13.8 % [facility] LABORATORY MPV 9.6 7.6 - 12.9 [facility] LABORATORY nRBC % Auto 0.0 % [facility] LABORATORY nRBC Abs Auto 0.000 0.000 - [facility] SU 0.000 [facility] x10(3)/[facility] LABORATORY Specimen Anatomical Collection Method Collection Time Receive d Time (Source) Location / / Volume Laterality Blood 12/11/2021 4:28 AM 4:37 EDT AM EDT Resulting Agency Comment Spec In Lab Bijan Sun MD HEMATOLOGY ORDERABLES Performing Organization Address City/State/[place] [address] (ABNORMAL) Prothrombin Time (12/11/2021 4:28 AM EDT) P athologist Signature PT 17.7 (H) 9.4 - 12.5 [facility] LABORATORY INR 1.6 [facility] LABORATORY [...] Address City/State/ZIP [place] [address] (ABNORMAL) BMP w/fasting Glucose (12/11/2021 4:28 AM EDT) athologist Signature Glucose 207 (H) 65 - 99 [facility] Fasting mg/dL [facility] LABORATORY Comment: ?Fasting* Glucose Interpretive C riteria [...] BUN 49 (H) 10 - 20 mg/dL [facility] LABORATORY Creatinine 1.43 0.80 - 1.50 mg/dL [facility] LABORATORY Sodium 142 135 - 145 mmol/L [facility] LABORATORY Potassium 4.0 3.5 - 5.0 mmol/L [facility] [...] 10.5 mg/dL [facility] LABORATORY Estimated GFR 48 (L) >=60 [...] Organization Address City/State/[place] [address] Magnesium (12/11/2021 4:28 AM EDT) P athologist Signature Magnesium 1.04 0.69 - 1.07 [facility] mmol/L [facility] LABORATORY Specimen Anatomical Collection Method Collection Time Receive d Time (Source) Location / / Volume Laterality Blood 12/11/2021 4:28 AM 2 4:37 EDT AM EDT Resulting Agency Comment Spec In Lab Iker Cuevas MD CHEMISTRY ORDERABLES Performing Organization Address City/State/ZIP [place] [address] POCT Glucose (12/11/2021 3:58 AM EDT) athologist Signature POC Glucose 189 65 - 199 [facility] mg/dL [facility] LABORATORY Comment: Supplemental ranges: <140 mg/dL before meals <180 mg/dL all other times of the day Specimen Anatomical Collection Method Collection Time Receive d Time (Source) Location / / Volume Laterality Blood 12/11/2021 3:58 AM 2 3:58 EDT AM EDT Iker Cuevas MD POINT OF CARE TEST ORDERABLE S Performing Organization Address City/State/ZIP [place] [address] (ABNORMAL) POCT Glucose (12/10/2021 11:45 PM EDT) athologist Signature POC Glucose 205 (H) 65 - 199 [facility] mg/dL [facility] LABORATORY Comment: Supplemental ranges: <140 mg/dL before meals <180 mg/dL all other times of the day Specimen Anatomical Collection Method Collection Time Receive d Time (Source) Location / / Volume Laterality Blood 12/10/2021 11:45 12/10/2021 PM EDT 11:45 PM EDT Iker Cuevas MD POINT OF CARE TEST ORDERABLE S Performing Organization Address City/State/ZIP [place] [address] (ABNORMAL) POCT Glucose (12/10/2021 7:54 PM EDT) athologist Signature POC Glucose 225 (H) 65 - 199 [facility] mg/dL [facility] LABORATORY Comment: Supplemental ranges: <140 mg/dL before meals <180 mg/dL all other times of the day Specimen Anatomical Collection Method Collection Time Receive d Time (Source) Location / / Volume Laterality Blood 12/10/2021 7:54 PM 2 7:54 EDT PM EDT Iker Cuevas MD POINT OF CARE TEST ORDERABLE S Performing Organization Address City/[facility]/ZIP [place] [address] Potassium (12/10/2021 7:46 PM EDT) athologist Signature Potassium 4.2 3.5 - 5.0 [facility] mmol/L [facility] LABORATORY Comment: Please note: ??Patients with WBC [...] Cuevas MD CHEMISTRY ORDERABLES Performing Organization Address City/[facility]/ZIP [place] [address] (ABNORMAL) Basic Metabolic Panel (non-fasting) (12/10/2021 6:12 PM EDT) athologist Signature Glucose Lvl 246 (H) 65 - 199 [facility] mg/dL [facility] LABORATORY Comment: Diabetes: >=200 mg/dL plus symp toms BUN 50 (H) 10 - 20 mg/dL [facility] LABORATORY Creatinine 1.39 0.80 - 1.50 mg/dL [facility] LABORATORY Sodium 138 135 - 145 mmol/L [facility] LABORATORY Potassium Not Perf 3.5 - [...] Gap 16 (H) 5 - 15 mmol/L [facility] [...] Organization Address City/State/[place] [address] POCT Glucose (12/10/2021 4:59 PM EDT) P athologist Signature POC Glucose 158 65 - 199 [facility] mg/dL [facility] LABORATORY Comment: Supplemental ranges: <140 mg/dL before meals <180 mg/dL all other times of the day Specimen Anatomical Collection Method Collection Time Receive d Time (Source) Location / / Volume Laterality Blood 12/10/2021 4:59 PM 2 4:59 EDT PM EDT Iker Cuevas MD POINT OF CARE TEST ORDERABLE S Performing Organization Address City/State/ZIP Code Phon e Number [address] (ABNORMAL) POCT Glucose (12/10/2021 12:43 PM EDT) P athologist Signature POC Glucose 241 (H) 65 - 199 [facility] mg/dL [facility] LABORATORY Comment: Supplemental ranges: <140 mg/dL before meals <180 mg/dL all other times of the day Specimen Anatomical Collection Method Collection Time Receive d Time (Source) Location / / Volume Laterality Blood 12/10/2021 12:43 12/10/2021 PM EDT 12:43 PM EDT Iker Cuevas MD POINT OF CARE TEST ORDERABLE S Performing Organization Address [facility]/ZIP [place] [address] EKG 12 Lead (12/10/2021 11:17 AM EDT) Component Value Ref Range Test Analysis Performed Pathologis t Method Time At Signature Ventricular rate 62 BPM MUSE SYSTEM Atrial Rate 62 BPM MUSE SYSTEM P-R Interval 142 ms MUSE SYSTEM QRS Duration 100 ms MUSE SYSTEM Q-T Interval 434 ms MUSE SYSTEM QTC Calculated 440 ms MUSE SYSTEM (Bezet) Calculated P [place] 34 degrees MUSE SYSTEM Calculated R [place] -39 degrees MUSE SYSTEM Calculated T [place] 92 degrees MUSE SYSTEM INTERPRETATION Normal sinus [...] Cuevas MD ECG ORDERABLES Performing Organization Address City/[facility]/ZIP Code Phon e Number MUSE SYSTEM CARDIAC CATHETERIZATION (12/10/2021 10:54 AM EDT) Specimen (Source) Anatomical Location Collection Method / Collectio n Time Received Time / Laterality Volume Narrative CARDIOMAC SYSTEM - 12/10/2021 12:04 PM E DT ?[facility] ? Cardiac Cathete rization/Intervention Report ? Patient Name: Don Fatima. ? Procedure Date: 12/10/2021 ? A #: [id number] ? Primary Physician: Vitaliy Nobles ? Case #: [id number] ? File Name: [id number] ? Catheterization Order Number: [id number] ? [facility] ? Final Report [place], [place] ? Patient Name: ? Don E. Stewa rt ? ID#: ?[id number] ? : ?1945 ? Procedure Date: ? December 10, 2021 ? Case #: ? [id number] ? Room: ? 1 ? Case Physician: [...] procedure was Urgent. 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 ??Imaging was [...] catheter and a 3.5 Fr [place] 20 Mhz using Manual ?pullback. ??Imaging was [...] - 01/14/2022 [facility] Cardiac Catheterization/Intervention Re port Patient Name: Kushal Don MccollumMadiha Procedure Date: 12/10/2021 A #: [id number] Primary Physician: Vitaliy Nobles Case #: [id number] File Name: [id number] Catheterization Order Number: [id number] [facility] Final Report [place], [place] Patient Name: Don Fatima ID#: [...] e was Urgent. 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 Imaging was [...] and a 3.5 Fr [place] 20 Mhz using Manual pullback. Imaging was [...] of this regimen. Consult D [facility] Interventional Cardiology for questions. The 1 year [...] 262 (H) 65 - 199 [facility] mg/dL [facility] LABORATORY Comment: Supplemental ranges: <140 mg/dL before meals <180 mg/dL all other times of the day Specimen Anatomical Collection Method Collection Time Receive d Time (Source) Location / / Volume Laterality Blood 12/10/2021 10:30 12/10/2021 AM EDT 10:30 AM EDT Iker Cuevas MD POINT OF CARE TEST ORDERABLE S Performing Organization Address City/State/[place] [address] (ABNORMAL) POCT Glucose (12/10/2021 9:48 AM EDT) athologist Signature POC Glucose 279 (H) 65 - 199 [facility] mg/dL [facility] LABORATORY Comment: Supplemental ranges: <140 mg/dL before meals <180 mg/dL all other times of the day Specimen Anatomical Collection Method Collection Time Receive d Time (Source) Location / / Volume Laterality Blood 12/10/2021 9:48 AM 2 9:48 EDT AM EDT Iker Cuevas MD POINT OF CARE TEST ORDERABLE S Performing Organization Address City/State/ZIP [place] [address] (ABNORMAL) POCT Glucose (12/10/2021 9:07 AM EDT) P athologist Signature POC Glucose 268 (H) 65 - 199 [facility] mg/dL [facility] LABORATORY Comment: Supplemental ranges: <140 mg/dL before meals <180 mg/dL all other times of the day Specimen Anatomical Collection Method Collection Time Receive d Time (Source) Location / / Volume Laterality Blood 12/10/2021 9:07 AM 2 9:07 EDT AM EDT Iker Cuevas MD POINT OF CARE TEST ORDERABLE S Performing Organization Address City/State/ZIP [place] [address] (ABNORMAL) Point of Care Blood Gas Historical (12/10/2021 9:04 AM EDT) Patholo gist Method Time Signature POC pH 7.40 7.35 - [facility] 7.45 [facility] LABORATORY POC PCO2 40 35 - 45 [facility] mmHg [facility] LABORATORY POC PO2 63 (L) 85 - 104 [facility] LABORATORY POC Base Excess 0.0 -3.0 - 3.0 [facility] K mmol/L [facility] LABORATORY POC HCO3 24.8 20.0 - [facility] 26.0 [facility] mmol/L HOSPITAL LABORATORY POC Sodium 143 135 - 145 [facility] mmol/L [facility] LABORATORY POC Potassium 3.7 3.5 - 5.0 [facility] mmol/L [facility] LABORATORY POC Ionized Ca 1.07 (L) 1.15 - [facility] 1.33 [facility] mmol/L HOSPITAL LABORATORY POC Hematocrit 30.0 (L) 40.0 - [facility] 51.0 % [facility] LABORATORY POC Calc Hgb 10.2 (L) 13.7 - [facility] 17.5 g/dL [facility] LABORATORY Comment: The calculation of hemoglobin f rom hematocrit assumes a normal MCHC. POC Bgas Loc CC LAB [facility] LABORATORY Specimen Anatomical Collection Method Collection Time Receive d Time (Source) Location / / Volume Laterality Blood 12/10/2021 9:04 AM 2 EDT 12:00 PM EDT Ifeanyi Truong MD CHEMISTRY ORDERABLES Performing Organization Address City/[facility]/ZIP [place] [address] (ABNORMAL) POCT Glucose (12/10/2021 7:19 AM EDT) athologist Signature POC Glucose 274 (H) 65 - 199 [facility] mg/dL [facility] LABORATORY Comment: Supplemental ranges: <140 mg/dL before meals <180 mg/dL all other times of the day Specimen Anatomical Collection Method Collection Time Receive d Time (Source) Location / / Volume Laterality Blood 12/10/2021 7:19 AM 2 7:19 EDT AM EDT Iker Cuevas MD POINT OF CARE TEST ORDERABLE S Performing Organization Address City/[facility] [place] [address] Heparin (unfractionated) Level (12/10/2021 4:25 AM EDT) athologist Signature Heparin UFH 0.69 IU/mL [facility] LABORATORY Comment: Heparin (anti-Xa) levels should [...] Organization Address City/State/[place] [address] (ABNORMAL) Differential, Automated (12/10/2021 4:25 AM EDT) [facility] Method Time Signature Neutrophils % 79.8 % [facility] LABORATORY Neutr Abs (ANC) 7.47 (H) 1.70 - [facility] 6.10 [facility] x10(3)/[facility] LABORATORY Lymphocytes % 10.6 % [facility] LABORATORY Lymphocytes Abs 1.0 0.9 - 3.2 [facility] x10(3)/[facility] LABORATORY Monocytes % 8.4 % [facility] LABORATORY Monocyte Abs 0.8 0.3 - 0.9 [facility] x10(3)/[facility] LABORATORY Eosinophils % 0.6 % [facility] LABORATORY Eosinophils Abs 0.1 0.0 - 0.4 [facility] x10(3)/[facility] LABORATORY Basophils % 0.2 % [facility] LABORATORY Basophils Abs 0.0 0.0 - 0.1 [facility] x10(3)/[facility] LABORATORY Immature Gran % 0.40 [...] 0.04 0.00 - 0.04 x10(3)/mcL MAR Y [facility] LABORATORY Specimen Anatomical Collection Method Collection Time Receive d Time (Source) Location / / Volume Laterality Blood 12/10/2021 4:25 AM 2 4:34 EDT AM EDT Resulting Agency Comment Spec In Lab Morgan BROWN HEMATOLOGY ORDERABLES Performing Organization Address City/State/ZIP [place] [address] (ABNORMAL) Hemogram (12/10/2021 4:25 AM EDT) Analysis Performed At Patho logist Time Signature WBC 9.4 4.0 - 9.5 [facility] x[facility](3)/[facility] LABORATORY RBC 3.81 (L) 4.58 - [facility] 5.54 [facility] x10(6)/[facility] LABORATORY Hemoglobin 11.1 (L) 13.7 - [facility] 16.5 g/dL [facility] LABORATORY Hematocrit 34.0 (L) 40.5 - [facility] 48.5 % [facility] LABORATORY MCV 89.2 82.9 - [facility] 93.1 [facility] LABORATORY MCH 29.1 27.5 - [facility] 32.1 pg [facility] LABORATORY MCHC 32.6 32.0 - [facility] 35.7 g/dL [facility] LABORATORY Platelets 183 145 - 357 [facility] x10(3)/[facility] LABORATORY RDWSD 49.9 (H) 36.0 - [facility] 45.0 [facility] LABORATORY RDWCV 15.2 (H) 11.4 - [facility] 13.8 % [facility] LABORATORY MPV 9.8 7.6 - 12.9 [facility] LABORATORY nRBC % Auto 0.0 % [facility] LABORATORY nRBC Abs Auto 0.000 0.000 - [facility] 0.000 [facility] x10(3)/[facility] LABORATORY Specimen Anatomical Collection Method Collection Time Receive d Time (Source) Location / / Volume Laterality Blood 12/10/2021 4:25 AM 2 4:34 EDT AM EDT Resulting Agency Comment Spec In Lab Morgan BROWN HEMATOLOGY ORDERABLES Performing Organization Address City/State/ZIP [place] [address] (ABNORMAL) Prothrombin Time (12/10/2021 4:25 AM EDT) athologist Signature PT 20.0 (H) 9.4 - 12.5 [facility] LABORATORY INR 1.7 [facility] [...] Organization Address City/State/[place] [address] (ABNORMAL) BMP w/fasting Glucose (12/10/2021 4:25 AM EDT) athologist Signature Glucose 210 (H) 65 - 99 [facility] Fasting mg/dL [facility] LABORATORY Comment: ?Fasting* Glucose Interpretive C riteria [...] BUN 54 (H) 10 - 20 mg/dL [facility] LABORATORY Creatinine 1.52 (H) 0.80 - 1.50 mg/dL [facility] LABORATORY Sodium 140 135 - 145 mmol/L [facility] LABORATORY Potassium 3.9 3.5 - 5.0 mmol/L [facility] LABORATORY [...] 15 mmol/L [facility] LABORATORY Calcium 8.0 (L) 8.5 - 10.5 mg/dL [facility] [...] Organization Address City/State/[place] [address] Magnesium (12/10/2021 4:25 AM EDT) athologist Signature Magnesium 0.95 0.69 - 1.07 [facility] mmol/L [facility] LABORATORY Specimen Anatomical Collection Method Collection Time Receive d Time (Source) Location / / Volume Laterality Blood 12/10/2021 4:25 AM 2 4:34 EDT AM EDT Resulting Agency Comment Spec In Lab Iker Cuevas MD CHEMISTRY ORDERABLES Performing Organization Address City/State/ZIP [place] [address] POCT Glucose (12/10/2021 1:58 AM EDT) athologist Signature POC Glucose 164 65 - 199 [facility] mg/dL [facility] LABORATORY Comment: Supplemental ranges: <140 mg/dL before meals <180 mg/dL all other times of the day Specimen Anatomical Collection Method Collection Time Receive d Time (Source) Location / / Volume Laterality Blood 12/10/2021 1:58 AM 2 1:58 EDT AM EDT Iker Cuevas MD POINT OF CARE TEST ORDERABLE S Performing Organization Address City/State/ZIP [place] [address] (ABNORMAL) POCT Glucose (12/09/2021 9:02 PM EDT) athologist Signature POC Glucose 313 (H) 65 - 199 [facility] mg/dL [facility] LABORATORY Comment: Supplemental ranges: <140 mg/dL before meals <180 mg/dL all other times of the day Specimen Anatomical Collection Method Collection Time Receive d Time (Source) Location / / Volume Laterality Blood 12/09/2021 9:02 PM 2 9:02 EDT PM EDT Iker Cuevas MD POINT OF CARE TEST ORDERABLE S Performing Organization Address City/State/ZIP [place] [address] Heparin (unfractionated) Level (12/09/2021 7:30 PM EDT) athologist Signature Heparin UFH 0.48 IU/mL [facility] [place] LABORATORY Comment: Heparin (anti-Xa) levels should [...] Organization Address City/State/[place] [address] (ABNORMAL) Basic Metabolic Panel (non-fasting) (12/09/2021 7:30 PM EDT) P athologist Signature Glucose Lvl 372 (H) 65 - 199 [facility] mg/dL [facility] LABORATORY Comment: Diabetes: >=200 mg/dL plus symp toms BUN 56 (H) 10 - 20 mg/dL [facility] LABORATORY Creatinine 1.75 (H) 0.80 - [...] 10.5 mg/dL [facility] LABORATORY Estimated GFR 37 (L) >=60 [...] Address City/State/[place] [address] (ABNORMAL) POCT Glucose (12/09/2021 6:34 PM EDT) P athologist Signature POC Glucose 408 (H) 65 - 199 [facility] mg/dL [facility] LABORATORY Comment: Supplemental ranges: <140 mg/dL before meals <180 mg/dL all other times of the day Specimen Anatomical Collection Method Collection Time Receive d Time (Source) Location / / Volume Laterality Blood 12/09/2021 6:34 PM 2 6:34 EDT PM EDT Iker Cuevas MD POINT OF CARE TEST ORDERABLE S Performing Organization Address City/State/[place] [address] (ABNORMAL) POCT Glucose (12/09/2021 6:32 PM EDT) athologist Signature POC Glucose 356 (H) 65 - 199 [facility] mg/dL [facility] LABORATORY Comment: Supplemental ranges: <140 mg/dL before meals <180 mg/dL all other times of the day Specimen Anatomical Collection Method Collection Time Receive d Time (Source) Location / / Volume Laterality Blood 12/09/2021 6:32 PM 2 6:32 EDT PM EDT Iker Cuevas MD POINT OF CARE TEST ORDERABLE S Performing Organization Address City/State/[place] [address] (ABNORMAL) POCT Glucose (12/09/2021 4:19 PM EDT) athologist Signature POC Glucose 347 (H) 65 - 199 [facility] LABORATORY Comment: Supplemental ranges: <140 mg/dL before meals <180 mg/dL all other times of the day Specimen Anatomical Collection Method Collection Time Receive d Time (Source) Location / / Volume Laterality Blood 12/09/2021 4:19 PM 2 4:19 EDT PM EDT Iker Cuevas MD POINT OF CARE TEST ORDERABLE S Performing Organization Address City/[facility]/ZIP [place] [address] Heparin (unfractionated) Level (12/09/2021 1:29 PM EDT) athologist Signature Heparin UFH 0.42 IU/mL [facility] [place] LABORATORY Comment: Heparin (anti-Xa) levels should [...] Resulting Agency Comment Spec In Lab Iker Ceuvas MD HEMATOLOGY ORDERABLES Performing Organization Address City/[facility]/ZIP [place] [address] (ABNORMAL) POCT Glucose (12/09/2021 12:02 PM EDT) P athologist Signature POC Glucose 235 (H) 65 - 199 [facility] mg/dL [facility] LABORATORY Comment: Supplemental ranges: <140 mg/dL before meals <180 mg/dL all other times of the day Specimen Anatomical Collection Method Collection Time Receive d Time (Source) Location / / Volume Laterality Blood 12/09/2021 12:02 12/09/2021 PM EDT 12:02 PM EDT Iker Cuevas MD POINT OF CARE TEST ORDERABLE S Performing Organization Address City/[facility]/ZIP [place] [address] (ABNORMAL) POCT Glucose (12/09/2021 9:44 AM EDT) P athologist Signature POC Glucose 214 (H) 65 - 199 [facility] mg/dL [facility] LABORATORY Comment: Supplemental ranges: <140 mg/dL before meals <180 mg/dL all other times of the day Specimen Anatomical Collection Method Collection Time Receive d Time (Source) Location / / Volume Laterality Blood 12/09/2021 9:44 AM 2 9:44 EDT AM EDT Iker Cuevas MD POINT OF CARE TEST ORDERABLE S Performing Organization Address City/[facility]/ZIP [place] [address] EKG 12 Lead (12/09/2021 7:57 AM EDT) Component Value Ref Range Test Analysis Performed Pathologis t Method Time At Signature Ventricular rate 101 BPM MUSE SYSTEM Atrial Rate 101 BPM MUSE SYSTEM P-R Interval 150 ms MUSE SYSTEM QRS Duration 112 ms MUSE SYSTEM Q-T Interval 364 ms MUSE SYSTEM QTC Calculated 471 ms MUSE SYSTEM (Bezet) Calculated P [place] 59 degrees MUSE SYSTEM Calculated R [place] -42 degrees MUSE SYSTEM Calculated T [place] 102 degrees MUSE SYSTEM INTERPRETATION Sinus tachycardia Occasional Premature ventricular com plexes MUSE SYSTEM Left axis deviation 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) Abnormal ECG When compared with ECG of 08-DEC-2021 16:40, Premature ventricular complexes are now Present Confirmed by MD Fernandez Danette ([id number]) on 12/10/2021 4:55:06 PM Specimen Anatomical Collection Method Collection Time Receive d Time (Source) Location / / Volume Laterality 12/09/2021 7:57 AM 2 4:55 EDT PM EDT Iker Cuevas MD ECG ORDERABLES Performing Organization Address City/State/ZIP Code Phon e Number MUSE SYSTEM (ABNORMAL) POCT Glucose (12/09/2021 7:28 AM EDT) athologist Signature POC Glucose 263 (H) 65 - 199 [facility] mg/dL [facility] LABORATORY Comment: Supplemental ranges: <140 mg/dL before meals <180 mg/dL all other times of the day Specimen Anatomical Collection Method Collection Time Receive d Time (Source) Location / / Volume Laterality Blood 12/09/2021 7:28 AM 2 7:28 EDT AM EDT Iker Cuevas MD POINT OF CARE TEST ORDERABLE S Performing Organization Address City/State/Z[place] [address] (ABNORMAL) Hemoglobin A1c (12/09/2021 [...] Avg Gluc See note mg/dL [facility] LABORATORY Comment: Estimated Average Glucose not [...] with hemoglobinopathies. Additional resources are available on [facility] ADA website. Macario HAMMOND, Ruthann J, Deysi R, et al. ??Tr anslating the A1C assay into estimated average glucose values. ??Diabetes Care 2008:31(8):9983-5777. Specimen Anatomical Collection Method Collection Time Receive d Time (Source) Location / / Volume Laterality Blood Venous Draw / 12/09/2021 6:18 AM 12/10/19 22 Unknown EDT 12:24 PM EDT Resulting Agency Comment Spec In Lab Migdalia BROWN CHEMISTRY ORDERABLES Performing Organization Address City/State/ZIP Code [place] [address] (ABNORMAL) Prothrombin Time (12/09/2021 6:18 AM EDT) athologist Signature PT 26.6 (H) 9.4 - 12.5 [facility] LABORATORY INR 2.3 [facility] [...] Migdalia BROWN HEMATOLOGY ORDERABLES Performing Organization Address City/[facility]/[place] [address] Heparin (unfractionated) Level (12/09/2021 6:18 AM EDT) athologist Signature Heparin UFH 0.24 IU/mL [facility] [place] LABORATORY Comment: Heparin (anti-Xa) levels should [...] Cuevas MD HEMATOLOGY ORDERABLES Performing Organization Address City/[facility]/ZIP [place] [address] (ABNORMAL) Differential, Automated (12/09/2021 6:18 AM EDT) [facility] Method Time Signature Neutrophils % 91.5 % [facility] LABORATORY Neutr Abs (ANC) 15.78 (H) 1.70 - [facility] 6.10 [facility] x10(3)/[facility] LABORATORY Lymphocytes % 2.9 % [facility] LABORATORY Lymphocytes Abs 0.5 (L) 0.9 - 3.2 [facility] x10(3)/[facility] LABORATORY Monocytes % 4.9 % [facility] LABORATORY Monocyte Abs 0.8 0.3 - 0.9 [facility] x10(3)/[facility] LABORATORY Eosinophils % 0.0 % [facility] LABORATORY Eosinophils Abs 0.0 0.0 - 0.4 [facility] x10(3)/[facility] LABORATORY Basophils % 0.2 % [facility] LABORATORY Basophils Abs 0.0 0.0 - 0.1 [facility] x10(3)/[facility] LABORATORY Immature Gran % 0.50 [...] Gran Abs 0.09 (H) 0.00 - 0.04 x10(3)/[facility] LABORATORY Specimen Anatomical Collection Method Collection Time Receive d Time (Source) Location / / Volume Laterality Blood 12/09/2021 6:18 AM 6:33 EDT AM EDT Resulting Agency Comment Spec In Lab Morgan BROWN HEMATOLOGY ORDERABLES Performing Organization Address City/State/ZIP Code Phon e Number [place] [id number] (ABNORMAL) Hemogram (12/09/2021 6:18 AM EDT) Analysis Performed At Patho logist Time Signature WBC 17.2 (H) 4.0 - 9.5 [facility] x10(3)/[facility] LABORATORY RBC 4.32 (L) 4.58 - [facility] 5.54 [facility] x10(6)/[facility] LABORATORY Hemoglobin 12.6 (L) 13.7 - [facility] 16.5 g/dL [facility] LABORATORY Hematocrit 38.9 (L) 40.5 - [facility] 48.5 % [facility] LABORATORY MCV 90.0 82.9 - [facility] 93.1 [facility] LABORATORY MCH 29.2 27.5 - [facility] 32.1 pg [facility] LABORATORY MCHC 32.4 32.0 - [facility] 35.7 g/dL [facility] LABORATORY Platelets 193 145 - 357 [facility] x10(3)/[facility] LABORATORY RDWSD 50.4 (H) 36.0 - [facility] 45.0 [facility] LABORATORY RDWCV 15.2 (H) 11.4 - [facility] 13.8 % [facility] LABORATORY MPV 9.5 7.6 - 12.9 [facility] LABORATORY nRBC % Auto 0.0 % [facility] LABORATORY nRBC Abs Auto 0.000 0.000 - [facility] 0.000 [facility] x10(3)/[facility] LABORATORY Specimen Anatomical Collection Method Collection Time Receive d Time (Source) Location / / Volume Laterality Blood 12/09/2021 6:18 AM 6:33 EDT AM EDT Resulting Agency Comment Spec In Lab Morgan BROWN HEMATOLOGY ORDERABLES Performing Organization Address City/State/[place] [address] Lipid Panel (Reflex Direct LDL) (12/09/2021 6:18 AM EDT) P athologist Signature Chol, Total 105 mg/dL [facility] LABORATORY Comment: Lower Risk: <200 mg/dL Average Risk: 200-239 mg/dL Higher Risk: >bb=173 mg/dL Triglycerides 133 mg/dL [facility] LABORATORY Comment: Average Risk/Lower Risk: <150 mg/dL Borderline High Risk: 150-199 mg/dL High Risk: 200-499 mg/dL Very High Risk: >oh=212 mg/dL HDL 42 mg/dL [facility] LABORATORY Comment: Males: ?? Higher Risk: <40 mg/dL Females: ?? Higher Risk: <50 mg/dL LDL Cholesterol 36 mg/dL [facility] LABORATORY Comment: Lowest Risk: <100 mg/dL Lower Risk: 100-129 mg/dL Borderline High Risk: 130-159 mg/dL High Risk: 160-189 mg/dL Very High Risk: >rs=395 mg/dL Chol/HDL Ratio 2.5 ratio [facility] LABORATORY Lipid Interpretation See Note [facility] LABORATORY Comment: Lipid management should be guided by a p atient? s ASCVD risk, goals and preferences. ACC/AHA Guidelines recommend high intens ity statin if clinical ASCVD or LDL greater than or equal to 190 mg/dL. http://[email or web address]/INX-ASF-Utysyuwll Adults aged 40-75 with LDL 70-189 mg/dL should have their 10 year ASCVD risk estimated with the ACC/AHA ASCVD risk es timator http://tools.acc.org/AHHAY-Odod-Anaqjjnh r/ Statin should be discussed if risk [...] Organization Address City/State/[place] [address] TSH (12/09/2021 6:18 AM EDT) athologist Signature TSH 1.60 0.27 - 4.20 [facility] mcIU/mL [facility] LABORATORY Comment: Reference Interval (mcIU/mL): Females: ??First Trimester: 0.23-3.88 ??Second Trimester: 0.22-3.90 ??Third Trimester: 0.44-4.66 Specimen Anatomical Collection Method Collection Time Receive d Time (Source) Location / / Volume Laterality Blood 12/09/2021 6:18 AM 2 6:33 EDT AM EDT Resulting Agency Comment Spec In Lab Iker Cuevas MD CHEMISTRY ORDERABLES Performing Organization Address City/[facility]/ZIP Code Phon e Number [address] Hepatic Function Panel (12/09/2021 6:18 AM EDT) athologist [facility] Total Protein 7.3 6.1 - 8.0 [facility] g/dL [facility] LABORATORY Albumin 4.2 3.2 - 5.2 [facility] g/dL [facility] LABORATORY AST 25 0 - 39 [facility] unit/L [facility] LABORATORY ALT 15 0 - 55 [facility] unit/L [facility] LABORATORY Alk Phos 75 40 - 130 [facility] unit/L [facility] LABORATORY Total 1.1 0.2 - 1.3 [facility] Bilirubin mg/dL [facility] LABORATORY Bili, Direct 0.2 0.0 - 0.3 [facility] mg/dL [facility] LABORATORY Specimen Anatomical Collection Method Collection Time Receive d Time (Source) Location / / Volume Laterality Blood 12/09/2021 6:18 AM 2 6:33 EDT AM EDT Resulting Agency Comment Spec In Lab Iker Cuevas MD CHEMISTRY ORDERABLES Performing Organization Address City/[facility] Phon e Number [address] (ABNORMAL) BMP w/fasting Glucose (12/09/2021 6:18 AM EDT) athologist Signature Glucose 235 (H) 65 - 99 [facility] Fasting mg/dL [facility] LABORATORY Comment: ?Fasting* Glucose Interpretive C riteria [...] BUN 49 (H) 10 - 20 mg/dL [facility] LABORATORY Creatinine 1.33 0.80 - 1.50 mg/dL [facility] LABORATORY Sodium 139 135 - 145 mmol/L [facility] [...] Cuevas MD CHEMISTRY ORDERABLES Performing Organization Address City/[facility]/ZIP Code Phon e Number [address] Magnesium (12/09/2021 6:18 AM EDT) athologist Signature Magnesium 0.81 0.69 - 1.07 [facility] mmol/L [facility] LABORATORY Specimen Anatomical Collection Method Collection Time Receive d Time (Source) Location / / Volume Laterality Blood 12/09/2021 6:18 AM 2 6:33 EDT AM EDT Resulting Agency Comment Spec In Lab Iker Cuevas MD CHEMISTRY ORDERABLES Performing Organization Address City/[facility] [place] [address] (ABNORMAL) Troponin (12/09/2021 6:18 AM EDT) athologist Signature Troponin-T 1.13 (H) 0.00 - [facility] 0.00 ng/mL [facility] LABORATORY Comment: The 99th percentile for Troponin [...] additional sample may be indicated. Reference: Third Mcallen Definition of Myocardial Infarction. Journal of the [employer] 2012;60:1581-98 Specimen Anatomical Collection Method Collection Time Receive d Time (Source) Location / / Volume Laterality Blood 12/09/2021 6:18 AM 6:33 EDT AM EDT Resulting Agency Comment Spec In Lab Iker Cuevas MD CHEMISTRY ORDERABLES Performing Organization Address City/State/ZIP Code Phon e Number [place] [id number] HOSP[address] LAB[address] XR Chest One View [...] have questions please contact the health career counselor that requested your imaging first. ? Electronically signed by: Yoselin White, [facility] ([phone]), at 12/09/2021 5:35 AM Narrative 12/09/2021 5:35 [...] have questions please contact the health career counselor that requested your imaging first. Electronically signed by: Yoselin White, [facility] ([phone]), at 12/09/2021 5:35 AM Amber Sanches MD IMG DX ORDERABLES (ABNORMAL) BLOOD GAS 2 ARTERIAL (12/09/2021 5:14 AM EDT) Analysis Performed At Patho logis Time Signature pH Art 7.43 7.35 - [facility] 7.45 [facility] LABORATORY pCO2 Art 36 35 - 45 [facility] LABORATORY pO2 Art 67 (L) 85 - 104 [facility] LABORATORY HCO3 Art 23.4 20.0 - [facility] 26.0 [facility] mmol/L [facility] LABORATORY BE Art -0.9 -3.0 - 3.0 [facility] mmol/L [facility] LABORATORY Hgb Blood Gas 13.2 (L) 13.7 - [facility] 16.5 g/dL [facility] O2HB Art 91.3 (L) 94.0 - [facility] 97.0 % [facility] LABORATORY COHB Art 0.4 % [facility] WB 2.7 (H) 0.5 - 2.2 mmol/L [facility] LABORATORY FIO2 Art 35 % [facility] LABORATORY Flow Art 8.[address] [facility] LABORATORY PF Ratio Art 191 [facility] LABORATORY Specimen Anatomical Collection Method Collection Time Receive d Time (Source) Location / / Volume Laterality Blood 12/09/2021 5:14 AM 5:14 EDT AM EDT Iker Cuevas MD CHEMISTRY ORDERABLES Performing Organization Address City/State/[place] [address] POCT Glucose (12/09/2021 4:46 AM EDT) athologist Signature POC Glucose 198 65 - 199 [facility] mg/dL [facility] LABORATORY Comment: Supplemental ranges: <140 mg/dL before meals <180 mg/dL all other times of the day Specimen Anatomical Collection Method Collection Time Receive d Time (Source) Location / / Volume Laterality Blood 12/09/2021 4:46 AM 2 4:46 EDT AM EDT Iker Cuevas MD POINT OF CARE TEST ORDERABLE S Performing Organization Address City/State/Z[place] [address] (ABNORMAL) POCT Glucose (12/09/2021 3:01 AM EDT) athologist Signature POC Glucose 225 (H) 65 - 199 [facility] mg/dL [facility] LABORATORY Comment: Supplemental ranges: <140 mg/dL before meals <180 mg/dL all other times of the day Specimen Anatomical Collection Method Collection Time Receive d Time (Source) Location / / Volume Laterality Blood 12/09/2021 3:01 AM 2 3:01 EDT AM EDT Iker Cuevas MD POINT OF CARE TEST ORDERABLE S Performing Organization Address City/State/[place] [address] (ABNORMAL) POCT Glucose (12/08/2021 10:55 PM EDT) athologist Signature POC Glucose 327 (H) 65 - 199 [facility] mg/dL [facility] LABORATORY Comment: Supplemental ranges: <140 mg/dL before meals <180 mg/dL all other times of the day Specimen Anatomical Collection Method Collection Time Receive d Time (Source) Location / / Volume Laterality Blood 12/08/2021 10:55 12/08/2021 PM EDT 10:55 PM EDT Iker Cuevas MD POINT OF CARE TEST ORDERABLE S Performing Organization Address City/State/ZIP Code Phon e Number [place] [phone]OS[address] Drive Heparin (unfractionated) Level (12/08/2021 10:03 PM EDT) athologist [facility] Heparin UFH 0.18 IU/mL [facility] [place] LABORATORY Comment: Heparin (anti-Xa) levels should [...] Address City/State/ZIP Code Phon e Number [address] (ABNORMAL) Troponin (12/08/2021 10:03 PM EDT) [facility] Trop[facility]-T 0.92 (H) 0.00 - [facility] 0.00 ng/mL [facility] LABORATORY Comment: The 99th percentile for Troponin [...] additional sample may be indicated. Reference: Third Mcallen Definition of Myocardial Infarction. Journal of the [employer] 2012;60:1581-98 Specimen Anatomical Collection Method Collection Time Receive d Time (Source) Location / / Volume Laterality Blood 12/08/2021 10:03 12/08/2021 PM EDT 10:31 PM EDT Resulting Agency Comment Spec In Lab Iker Cuevas MD CHEMISTRY ORDERABLES Performing Organization Address City/[facility]/ZIP [place] [address] (ABNORMAL) POCT Glucose (12/08/2021 8:22 PM EDT) athologist Signature POC Glucose 429 (H) 65 - 199 [facility] mg/dL [facility] LABORATORY Comment: Supplemental ranges: <140 mg/dL before meals <180 mg/dL all other times of the day Specimen Anatomical Collection Method Collection Time Receive d Time (Source) Location / / Volume Laterality Blood 12/08/2021 8:22 PM 8:22 EDT PM EDT Iker Cuevas MD POINT OF CARE TEST ORDERABLE S Performing Organization Address City/State/Z[place] [address] (ABNORMAL) POCT Glucose (12/08/2021 7:06 PM EDT) P athologist Signature POC Glucose 442 (H) 65 - 199 [facility] mg/dL [facility] LABORATORY Comment: Supplemental ranges: <140 mg/dL before meals <180 mg/dL all other times of the day Specimen Anatomical Collection Method Collection Time Receive d Time (Source) Location / / Volume Laterality Blood 12/08/2021 7:06 PM 2 7:06 EDT PM EDT Iker Cuevas MD POINT OF CARE TEST ORDERABLE S Performing Organization Address City/State/ZIP Code Phon e Number [address] Magnesium (12/08/2021 6:02 PM EDT) athologist Signature Magnesium 0.86 0.69 - 1.07 [facility] mmol/L [facility] LABORATORY Specimen Anatomical Collection Method Collection Time Receive d Time (Source) Location / / Volume Laterality Blood 12/08/2021 6:02 PM 2 6:36 EDT PM EDT Resulting Agency Comment Spec In Lab Iker Cuevas MD CHEMISTRY ORDERABLES Performing Organization Address City/[facility]/ZIP [place] [address] (ABNORMAL) Basic Metabolic Panel (non-fasting) (12/08/2021 6:02 PM EDT) athologist Signature Glucose Lvl 392 (H) 65 - 199 [facility] mg/dL [facility] LABORATORY Comment: Diabetes: >=200 mg/dL plus symp toms BUN 41 (H) 10 - 20 mg/dL [facility] LABORATORY Creatinine 1.44 0.80 - 1.50 [...] Gap 16 (H) 5 - 15 mmol/L [facility] [...] City/State/ZIP Code Phon e Number [place] [phone]OS[address] (ABNORMAL) Differential, Automated (12/08/2021 6:02 PM EDT) [facility] Method Time Signature Neutrophils % 89.5 % [facility] LABORATORY Neutr Abs (ANC) 13.97 (H) 1.70 - [facility] 6.10 [facility] x10(3)/[facility] L LABORATORY Lymphocytes % 3.7 % [facility] LABORATORY Lymphocytes Abs 0.6 (L) 0.9 - 3.2 [facility] x10(3)/[facility] LABORATORY Monocytes % 6.1 % [facility] LABORATORY Monocyte Abs 1.0 (H) 0.3 - 0.9 [facility] x10(3)/[facility] LABORATORY Eosinophils % 0.0 % [facility] LABORATORY Eosinophils Abs 0.0 0.0 - 0.4 [facility] x10(3)/[facility] LABORATORY Basophils % 0.2 % [facility] LABORATORY Basophils Abs 0.0 0.0 - 0.1 [facility] x10(3)/[facility] LABORATORY Immature Gran % 0.50 [...] Organization Address City/State/[place] [address] (ABNORMAL) Hemogram (12/08/2021 6:02 PM EDT) Analysis Performed At Patho logist Time Signature WBC 15.6 (H) 4.0 - 9.5 [facility] x10(3)/[facility] LABORATORY RBC 4.05 (L) 4.58 - [facility] 5.54 [facility] x10(6)/[facility] LABORATORY Hemoglobin 11.8 (L) 13.7 - [facility] 16.[facility] g/dL [facility] LABORATORY Hematocrit 35.8 (L) 40.5 - [facility] 48.5 % [facility] LABORATORY MCV 88.4 82.9 - [facility] 93.1 [facility] LABORATORY MCH 29.1 27.5 - [facility] 32.1 pg [facility] LABORATORY MCHC 33.0 32.0 - [facility] 35.7 g/dL [facility] LABORATORY Platelets 178 145 - 357 [facility] x10(3)/[facility] LABORATORY RDWSD 49.3 (H) 36.0 - [facility] 45.0 [facility] LABORATORY RDWCV 15.1 (H) 11.4 - [facility] 13.8 % [facility] LABORATORY MPV 10.4 7.6 - 12.9 [facility] fL [facility] LABORATORY nRBC % Auto 0.0 % [facility] LABORATORY nRBC Abs Auto 0.000 0.000 - [facility] DAVIS 0.000 [facility] x10(3)/[facility] LABORATORY Specimen Anatomical Collection Method Collection Time Receive d Time (Source) Location / / Volume Laterality Blood 12/08/2021 6:02 PM 6:36 EDT PM EDT Resulting Agency Comment Spec In Lab Morgan BROWN HEMATOLOGY ORDERABLES Performing Organization Address City/State/[place] [address] (ABNORMAL) Troponin (12/08/2021 6:02 PM EDT) P athologist Signature Troponin-T 0.89 (H) 0.00 - [facility]IS 0.00 ng/mL [facility] LABORATORY Comment: The 99th percentile for Troponin [...] additional sample may be indicated. Reference: Third Mcallen Definition of Myocardial Infarction. Journal of the [place] College of [employer]iology 2012;60:1581-98 Specimen Anatomical Collection Method Collection Time Receive d Time (Source) Location / / Volume Laterality Blood 12/08/2021 6:02 PM 2 6:36 EDT PM EDT Resulting Agency Comment Spec In Lab Iker Cuevas MD CHEMISTRY ORDERABLES Performing Organization Address City/State/ZIP [place] [address] COVID-19 PCR (12/08/2021 5:00 PM EDT) [facility] Method Time Signature SARS-CoV-2 Not Detected Not Detected BARBARA RNA PCR [facility] LABORATORY Comment: This result should be interpreted [...] using the Simplexa COVID-19 Direct Assay by [employer] as authorized by the FDA issued Emergency [...] Department of Pathology and Laboratory Medicine at [facility], certified under the Clinical Laboratory Improvement [...] clinical management guidance information are available at [facility] CDC Coronavirus Disease 2019 (COVID-19) webpage under Information fo r Healthcare Professionals (https://www.cdc.gov/coronavirus/2019-nc ov/hcp/index.html). Additional information about this and ot her EUA tests can be found in provider and patient fact sheets at the following FDA website: https://www.fda.gov/medical-devices/ngbftgyiibg-wqfbidy-6592-wewas-78-fngukkfvn- zrk-sorwnbarjrlgvh-hemkhac-devices/tkxnr-kskrdrgtysm-dwcb SARS-CoV-2 Source VOIP NETWORK TECHNICIAN Swab [facility] LABORATORY Specimen (Source) Anatomical Collection Method Collection Time Re ceived Time Location / / Volume Laterality Nasopharyngeal Swab 12/08/2021 5:00 12/08 PM EDT 6:03 PM EDT Comment: Symptoms->Surveillance Resulting Agency Comment Spec In Lab Iker Cuevas MD MICROBIOLOGY - GENERAL ORDER [place] Performing Organization Address City/State/[place] [address] EKG 12 Lead (12/08/2021 4:40 PM EDT) Component Value Ref Range Test Analysis Performed Pathologis t Method Time At Signature Ventricular rate 78 BPM MUSE SYSTEM Atrial Rate 78 BPM MUSE SYSTEM P-R Interval 152 ms MUSE SYSTEM QRS Duration 96 ms MUSE SYSTEM Q-T Interval 396 ms MUSE SYSTEM QTC Calculated 451 ms MUSE SYSTEM (Bezet) Calculated P [place] 44 degrees MUSE SYSTEM Calculated R [place] -31 degrees MUSE SYSTEM Calculated T [place] 124 degrees MUSE SYSTEM INTERPRETATION Normal sinus [...] 400 (H) 65 - 199 [facility] mg/dL [facility] LABORATORY Comment: Supplemental ranges: <140 mg/dL before meals <180 mg/dL all other times of the day Specimen Anatomical Collection Method Collection Time Receive d Time (Source) Location / / Volume Laterality Blood 12/08/2021 4:34 PM 2 4:34 EDT PM EDT Iker Cuevas MD POINT OF CARE TEST ORDERABLE S Performing Organization Address City/State/[place] [address] documented in this encounter [...] Coronary atherosclerosis of unspecified type of vessel, te-moak or graft Cardiomyopathy, ischemic Other specified forms [...] furosemide (Lasix) (10 mg/mL) injection 80 mg ([facility] ED) 174 (Given - Provider: Emma [...] Garcia RN)1206 (Given - Provider: Emma Garcia, VMASI)1609 (Given - Provider: Emma Garcia, VAMSI)1847 (Given [...] solution 1 mg( Linked Group 2) 804 ([facility] Hold - Provider: Admin Adt - [...] (Glutose) 40% oral geL(Linked Group 2) 804 ([facility] Hold - Provider: Admin Adt - Reason: Transfer to a Procedural area)1229 ([facility] Unhold - Provider: Admin Adt) 15-30 [...] (Intra-Procedure), Routine niCARdipine (Cardene) (100 mcg/mL) dilution (PAST DUE ACCOUNTS CLERK) (CANCELED) 1030 (Given - Provider: Vitaliy [...] (Effient) tablet (CANCELED) 1013 (Given - Provider: [place] Schaffer) ONCE PRN, Starting on Wed12/10/21 at [...] chloride 0.9 % (flush) (BD PosiFlush Normal Saen ine 0.9) flush 5-20 mL 08 (SEP [...] episode. & nbsp; For persistent hypoglycemia, con bessemer converter operator longer-acting treatment for the duration of [...]
Routine documented in this encounter Care Teams Hemmer Lockstitch Relationship Specialty Start Date End Date Lovely Vicente MD PCP - General 04/16/[address] [place] [address] documented as of this encounter
--- OUTSIDE RECORDS SUMMARY | 2022-03-23 09:34 | XMS_ITS | Encounter Summary ---
:1945 [place] [address] Care Team Providers Name Role Phone Lovely Vicente MD Primary Care Provider Encounter Details Date Type Department Care Team Description 12/30/2021 Notes Only [facility] Linnea Deluca, VAMSI [facility] [place] [address] Social History Tobacco Use Types Packs/Day [...] Nobles MD [facility] ER DR [address] [place], [place] [address] (Wo rk) 05/28/2022 Appointment Cardiology Zulma Dolan MD [facility] [place], [place] [address] (Wo rk) 05/28/2022 Laboratory Appointment Lab 05/28/2022 Office Visit Cardiology Zulma Dolan MD [facility] [place] [address] Liz Poole PA [facility] [place] [address] 06/10/2022 Office Visit Dermatology Laura Scherer MD [facility] DR [address] [place], [place] [address] (Wo rk) documented as of this encounter Visit Diagnoses Not on filedocumented in this encounter Care Teams Computer Science Professor Relationship Specialty Start Date End Date Lovely Vicente MD PCP - General 04/16/[address] [place] [address] documented as of this encounter
--- OUTSIDE RECORDS SUMMARY | 2022-03-23 09:34 | XMS_ITS | Encounter Summary ---
:1945 [place] [address] Care Team Providers Name Role Phone Lovely Vicente MD Primary Care Provider Encounter Details Date Type Department Care Team Description 12/24/2021 Orders Only Industrial Chemist Zulma Finch ASCVD (art eriosclerotic [facility] cardiovascular disease) [facility] [place] [address] [place], [place] [phone] (Work) [phone] Social History Tobacco Use Types Packs/Day Years [...] [facility] [address] [place] [address] (Wo rk) 05/28/2022 Appointment Cardiology Zulma Dolan MD [facility] [address] [place] [address] (Wo rk) 05/28/2022 Laboratory Appointment Lab 05/28/2022 Office Visit Cardiology Zulma Dolan MD [facility] [place] [address] Liz Poole PA [facility] [place] [address] 06/10/2022 Office Visit Dermatology Laura Scherer MD [facility] ER DR [address] [place], [place] 0[address] (Wo rk) documented as of this encounter Visit Diagnoses Diagnosis ASCVD (arteriosclerotic cardiovascular d isease) Unspecified cardiovascular disease documented in this encounter Care Teams Associate Store Manager Relationship Specialty Start Date End Date Lovely Vicente MD PCP - General 04/16/[address] [place] [address] documented as of this encounter
--- OUTSIDE RECORDS SUMMARY | 2022-03-23 09:35 | XMS_ITS | Encounter Summary ---
:1945 Author Organization [facility] Address [facility] [place] [address] Care Team Providers Name Role Phone Lovely Vicente MD Primary Care Provider Reason for Referral Diagnostic Test (Routine) - Closed Specialty Diagnoses / Procedures Referred By Contact Refer red To Contact Cardiology Diagnoses Chronic systolic heart failure Danette Maxwell APRN [facility] Non-Inv Card Lab Procedures Echocardiogram Transthoracic(Leb) [facility] [place] [address] [place] [address] Referral ID Status Reason Start Date Expiration Date Visits V isits Requested Authorized [id number] Closed Specialty 07/17/2019 09/14/2019 1 1 Service Requested Encounter Details Date Type Department Care Team Description 01/16/2019 Office Visit Cardiology at [facility] Danette Maxwell, Chronic systolic heart failu re; [facility] STACIE Cardiomyopathy, ischemic; Drive [facility] Hx of thyroid cancer; [place], [place] DR [address] (arteriosclerotic heart disease); [phone] CARDIOLOGY MARIA VICTORIA (obstructive sleep apnea) on CPAP [phone] [place], [place] [address] (Wo rk) Social History Tobacco Use Types [...] K+ 4.6 today 6. Post-op atrial fibrillation [id number] (CHF, HTN, DM, vascular disease, thromboembolism) Amiodarone discontinued Continue coumadin INR managed by PCP. 2.1 today 7. PAD 08/06/2017: Right 1st, 2nd, 3rd toe amputation 08/11/2017: Left??femoral arterial access, RLE??angiogram, Balloon angioplasty of R PT with Eleazar 2.5 x 80 10/25/2017: right popliteal-pedal bypass at [facility] 8. Hypothyrodism S/p thyroidectomy for [...] Nobles MD [facility] CARDIOLOGY [place], [place] [address] (Wo rk) 05/28/2022 Appointment Cardiology Zulma Dolan MD [facility] [place], [place] [address] (Wo rk) 05/28/2022 Laboratory Appointment Lab 05/28/2022 Office Visit Cardiology Zulma Dolan MD [facility] [place] [address] Liz Poole PA [facility] [place] [address] 06/10/2022 Office Visit Dermatology Laura Scherer MD [facility] DR [address] [place]LOGY [place], [place] [address] (Wo rk) documented as of this encounter Results ECHOCARDIOGRAM COMPLETE W CONTRAST (07/28/2019 8:19 AM EST) athologist Signature EF 40 HEARTLAB SYSTEM Specimen (Source) Anatomical Location Collection Method / Collectio n Time Received Time / Laterality Volume 07/28/2019 Narrative HEARTLAB SYSTEM - 07/28/2019 8:38 AM EST Procedure: ?Transthoracic Echocardiogram Patient: ?NATALYA Mccollum ? (Age): 1945(74y) Med Rec#: ? [id number] ?Sex: ?M ? Site Loc: ? [facility] ?Ht / Wt: ??172(cm)/81(kg) Pt. Loc: ?Echo Lab ?BSA: ?1.94 Study Date: ?? 07/28/2019 ?Pt. Type: Outpatient Tape: ? Referring: MARY ELLEN Reading: Ifeanyi Truong ([id number]) Training Analyst: Fadumo Flanagan RDCS, FASE Diagnosis: *Chronic systolic [...] E-wave Vmax ?1 ?m/sec ? MV deceleration dokv005.5 ? msec ? MV A-wave Vmax ?1 [...] ? Pulmonic Valve/Qp:Qs ?Value ?Units (Range) ? ND end-diastolic Vma1.1 ?m/sec ? Wall Motion: Segment Name ?Rest ? Base-Anteroseptal ?? Normal ? Base-Anterior ? Normal ? Base-Anterolateral ??Normal ? Base-Posterolateral Normal ? Base-Inferior ? Akinetic ? Base-Inferoseptal ?? Normal ? Mid-Anteroseptal ?Normal ? Mid-Anterior ?Hypokinetic ? Mid-Anterolateral ?? Normal ? Mid-Posterolateral ??Normal ? Mid-Inferior ?Hypokinetic ? Mid-Inferoseptal ?Normal ? Marilla-Septal ? Normal ? Marilla-Anterior ? Hypokinetic ? Marilla-Lateral ?Normal ? Marilla-Inferior ? Akinetic ? Marilla-Tip ?Hypokinetic ? This report has been electronically sign ed by: _ Ifeanyi Truong M.D. ? 07/28/2019 0 8:38:01 Images reviewed and interpretation verif ied [facility] Cardiac Ultrasound Laboratory Procedure Note Ifeanyi Truong MD - 07/28/2019Formatt ing of this note might be different from the original. Procedure: Transthoracic Echocardiogram Patient: NATALYA MCBRIDE(Age): [birth year]74y) Med Rec#: [id number] Sex: M Site Loc: [facility] Ht / Wt: 172(cm)/81(kg) Pt. Loc: Echo Lab BSA: 1.94 Study Date: 07/28/2019 Pt. Type: Outpati ent Tape: Referring: MARY ELLEN Reading: Ifeanyi Truong ([id number]) Training Analyst: Fadumo Flanagan RDCS, REGINA Diagnosis: *Chronic systolic [...] MV E-wave Vmax 1 m/sec MV deceleration kqnv601.5 msec MV A-wave Vmax 1 m/sec MV [...] 0.7 ratio Pulmonic Valve/Qp:Qs Value Units (Range) ND end-diastolic Vma1.1 m/sec Wall Motion: Segment Name Rest Base-Anteroseptal Normal Base-Anterior Normal Base-Anterolateral Normal Base-Posterolateral Normal Base-Inferior Akinetic Base-Inferoseptal Normal Mid-Anteroseptal Normal Mid-Anterior Hypokinetic Mid-Anterolateral Normal Mid-Posterolateral Normal Mid-Inferior Hypokinetic Mid-Inferoseptal Normal Marilla-Septal Normal Marilla-Anterior Hypokinetic Marilla-Lateral Normal Marilla-Inferior Akinetic Marilla-Tip Hypokinetic This report has been electronically sign ed by: _ Ifeanyi Truong M.D. 07/28/2019 08:38:0 1 Images reviewed and interpretation verif ied [facility] Danette Maxwell APRN ECHO ORDERABLES Performing Organization Address City/State/ZIP Code Phon e Number HEARTLAB SYSTEM (ABNORMAL) Basic Metabolic Panel (non-fasting) (01/16/2019 7:49 AM EDT) P athologist Signature Glucose Lvl 105 65 - 199 [facility] mg/[facility] LABORATORY Comment: Diabetes: >=200 mg/dL plus [...] of body mass or the acutely ill. [email or web address] eGFR 79 >=60 mL/min/1.73 m?? [facility] LABORATORY Comment: The eGFR was calculated using the CKD-EP I equation. As with all creatinine based estimates of kidney function, eGFR values calculated with the CKD-EPI equation are not accurate in patients wi th acute kidney failure, extremes of body mass or the acutely ill. http://[email or web address] Specimen Anatomical Collection Method Collection Time Receive d Time (Source) Location / / Volume Laterality Blood specimen 01/16/2019 7:49 AM 019 7:55 (specimen) EDT AM EDT Resulting Agency Comment Spec In Lab Danette Maxwell APRN CHEMISTRY ORDERABLES Performing Organization Address City/State/[place] [address] (ABNORMAL) pro-Brain Natriuretic Peptide [...] Organization Address City/State/[place] [address] documented in this encounter Visit Diagnoses Diagnosis Chronic systolic heart failure Cardiomyopathy, ischemic Other specified forms of chronic ischemi c heart disease Hx of thyroid cancer Personal history of malignant neoplasm o f thyroid ASHD (arteriosclerotic heart disease) Coronary atherosclerosis of unspecified type of vessel, asa'[place] or graft MARIA VICTORIA (obstructive sleep apnea) on CPAP Obstructive sleep apnea (adult) (pediatr ic) Chronic systolic heart failure documented in this encounter Care Teams Maintenance Service Technician Relationship Specialty Start Date End Date Lovely Vicente MD PCP - General 04/16/[address] [place] [address] [address] [place] [address] documented as of this encounter
--- OUTSIDE RECORDS SUMMARY | 2022-03-23 09:35 | XMS_ITS | Encounter Summary ---
:1945 Author Organization [facility] [place] [address] Care Team Providers Name Role Phone Lovely Vicente MD Primary Care Provider Encounter Details Date Type Department Care Team Description 12/07/2021 Telephone Cardiology Eddi Briceño Jr., [facility] [place] [address] [facility] [phone] CARDIOLOGY DEPT [place], [place] [address] (Wo rk) Social History Tobacco [...] [facility] Referring Provider: Marisela Dean, KIDS ACTIVITIES COACH [address] [place] [address] Don Veda Kushal 76 y.o. w / [...] bpm, LAFB, poor R wave progression, septal [place], and lateral STD, overall no significantchange from [...] Vitaliy Nobles MD [facility] [address] [place] [address] (Mikayla alcaraz) 05/28/2022 Appointment Cardiology Zulma Dolan MD [facility] [address] [place] [address] (Wo rk) 05/28/2022 Laboratory Appointment Lab 05/28/2022 Office Visit Cardiology Zulma Dolan MD [facility] [place] [address] Liz Poole PA [facility] [place] [address] 06/10/2022 Office Visit Dermatology Laura Scherer MD [facility] ER DR [address] [place], [place] [address] (Wo rk) documented as of this encounter Visit Diagnoses Not on filedocumented in this encounter Care Teams Business Transformation Manager Relationship Specialty Start Date End Date Lovely Vicente MD PCP - General 04/16/[address] [place], [place] [address] documented as of this encounter
--- OUTSIDE RECORDS SUMMARY | 2022-03-23 09:35 | XMS_ITS | Encounter Summary ---
:1945 Author Organization [facility] [place] [address] Care Team Providers Name Role Phone Lovely Vicente MD Primary Care Provider Encounter Details Date Type Department Care Team Description 04/16/2021 Laboratory Appointment Lab 3L [facility] [place] [id number] Social History Tobacco Use Types Packs/Day Years [...] MD [facility] [address] [place], [place] [address] (Wo rk) 05/28/2022 Appointment Cardiology Zulma Dolan MD [facility] [address] [place] [address] (Wo rk) 05/28/2022 Laboratory Appointment Lab 05/28/2022 Office Visit Cardiology Zulma Dolan MD [facility] [place] [address] Liz Poole PA [facility] [place] [address] 06/10/2022 Office Visit Dermatology Laura Scherer MD [facility] ER DR [address] [place], [place] [address] (Wo rk) documented as of [...] Organization Address City/State/ZIP [place] [address] (ABNORMAL) Basic Metabolic Panel (non-fasting) (04/16/2021 9:58 AM EDT) athologist Signature Glucose Lvl 77 65 - 199 [facility] mg/dL [facility] LABORATORY Comment: Diabetes: >=200 mg/dL plus symp toms BUN 23 (H) 10 - 20 mg/dL [facility] LABORATORY Creatinine 1.26 0.80 - 1.50 mg/dL [facility] LABORATORY Sodium 140 135 - 145 mmol/L [facility] LABORATORY Potassium 5.2 (H) 3.5 - 5.0 mmol/L [facility] [...] Gap 9 5 - 15 mmol/L [facility] LABORATORY Calcium 9.3 8.5 - 10.5 mg/dL [facility] LABORATORY Estimated GFR 55 (L) >=60 [...] Organization Address City/State/ZIP [place] [address] documented in this encounter Visit Diagnoses Diagnosis Chronic systolic heart failure documented in this encounter Care Teams Mems Integration Engineer Relationship Specialty Start Date End Date Lovely Vicente MD PCP - General 04/16/[address] [place] [address] documented as of this encounter
--- OUTSIDE RECORDS SUMMARY | 2022-03-23 09:35 | XMS_ITS | Encounter Summary ---
:1945 Author Organization [facility] [place] [address] Care Team Providers Name Role Phone Lovely Vicente MD Primary Care Provider Reason for Visit Reason Onset Date Comments Other 03/24/2019 cardiac clearance ne eded Encounter Details Date Type Department Care Team Description 03/24/2019 Telephone Cardiology at [facility] Danette Maxwell, Other (cardiac [facility] AMBULATORY TECHNOLOGIST clearance needed) [place] [address] CARDIOLOGY [place], [place] [address] (Wo rk) Social History Tobacco [...] AM EDT Leonela from [facility] [place] called requesting cardiac clearance for this patient who is to have a colonoscopy on 04/04/19. He is on anticoagulation and they will need to bridge him. Their phone # [phone], fax# [phone]. Thank you. documented in this encounter Plan of Treatment Upcoming Encounters Date Type Specialty Care Team Description 03/26/2022 Office Visit Cardiology Vitaliy Nobles MD [facility] [address] [place], [place] [address] (Wo rk) 05/28/2022 Appointment Cardiology Zulma Dolan MD [facility] [place], [place] [address] (Wo rk) 05/28/2022 Laboratory Appointment Lab 05/28/2022 Office Visit Cardiology Zulma Dolan MD [facility] [place] [address] Liz Poole PA [facility] [place] [address] 06/10/2022 Office Visit Dermatology Laura Scherer MD [facility] DR [address] [place], [place] [address] (Wo rk) documented as of this encounter Visit Diagnoses Not on filedocumented in this encounter Care Teams Biomedical Electronics Technician Relationship Specialty Start Date End Date Lovely Vicente MD PCP - General 04/16/[address] [place] [address] documented as of this encounter
--- OUTSIDE RECORDS SUMMARY | 2022-03-23 09:35 | XMS_ITS | Encounter Summary ---
:1945 Author Organization [facility] [place] [address] Care Team Providers Name Role Phone Lovely Vicente MD Primary Care Provider Encounter Details Date Type Department Care Team Description 03/20/2021 Ancillary Procedure Radiology Library at [place] [address] [place] [address] [phone] Social History Tobacco Use Types Packs/Day Years [...] [facility] [address] TADEO [place], [place] [address] (Wo rk) 05/28/2022 Appointment Cardiology Zulma Dolan MD [facility] Dr [place], [place] [address] (Wo rk) 05/28/2022 Laboratory Appointment Lab 05/28/2022 Office Visit Cardiology Zulma Dolan MD [facility] [place] [address] Liz Poole PA [facility] [place] [address] 06/10/2022 Office Visit Dermatology Laura Scherer MD [facility] [address]-DERMAT [place], [place] 0[address] (Wo rk) documented as of [...] Organization Address City/State/ZIP Code Phon e Number [place], [place] documented in this encounter Visit Diagnoses Not on filedocumented in this encounter Care Teams Lead Applications Developer Relationship Specialty Start Date End Date Lovely Vicente MD PCP - General 04/16/[address] [place] [address] documented as of this encounter
--- OUTSIDE RECORDS SUMMARY | 2022-03-23 09:35 | XMS_ITS | Encounter Summary ---
:1945 Author Organization [facility] [place] [address] Care Team Providers Name Role Phone Lovely Vicente MD Primary Care Provider Encounter Details Date Type Department Care Team Description 12/08/2021 External Results Non-Invasive Cardiology Lab Mar y None [facility] [place] [address] Social History Tobacco Use Types Packs/Day [...] MD [facility] DR CARLYLE [place], [place] [address] (Wo rk) 05/28/2022 Appointment Cardiology Zulma Dolan MD [facility] [address] [place] 0[address] (Wo rk) 05/28/2022 Laboratory Appointment Lab 05/28/2022 Office Visit Cardiology Zulma Dolan MD [facility] [place] [address] Liz Poole PA [facility] [place] [address] 06/10/2022 Office Visit Dermatology Laura Scherer MD [facility] ER [address]-DERMAT [place], [place] 0[address] (Wo rk) documented as of [...] on filedocumented in this encounter Care Teams Structures Technician Relationship Specialty Start Date End Date Lovely Vicente MD PCP - General 04/16/[address] [place] [address] documented as of this encounter
--- OUTSIDE RECORDS SUMMARY | 2022-03-23 09:35 | XMS_ITS | Encounter Summary ---
:1945 Author Organization [facility] [place] [address] Care Team Providers Name Role Phone Lovely Vicente MD Primary Care Provider Encounter Details Date Type Department Care Team Description 08/15/2018 Office Visit Cardiology at [facility] Danette Maxwell Chronic systolic heart failu re; [facility] A, ASSISTANT PARALEGAL Cardiomyopathy, ischemic; [facility] ASCVD (arteriosclerotic card iovascular disease); [place], [place] Essential hypertension; [id number] CARDIOLOGY MARIA VICTORIA on CPAP [phone] [place], [place] [address] Social History Tobacco Use Types [...] in this encounter Progress Notes Danette Maxwell, ASSISTANT PARALEGAL - 08/15/2018 9:00 AM EST Images from [...] is always better at therapy Call to [facility] PT Denies lightheadedness or dizziness [...] K+ 4.6 today 6. Post-op atrial fibrillation [id number] (CHF, HTN, DM, vascular disease, thromboembolism) Amiodarone discontinued Continue coumadin INR managed by PCP. 2.1 today 7. PAD 08/06/2017: Right 1st, 2nd, 3rd toe amputation 08/11/2017: Left??femoral arterial access, RLE??angiogram, Balloon angioplasty of R PT with Eleazar 2.5 x 80 10/25/2017: right popliteal-pedal bypass at [facility] 8. Hypothyrodism S/p thyroidectomy for goiter [...] Nobles MD [facility] [address] [place] [place] 0[address] (Wo rk) 05/28/2022 Appointment Cardiology Zulma Dolan MD [facility] [address] [place] 0[address] (Wo rk) 05/28/2022 Laboratory Appointment Lab 05/28/2022 Office Visit Cardiology Zulma Dolan MD [facility] [place] [address] Liz Poole PA [facility] [place] [address] 06/10/2022 Office Visit Dermatology Laura Scherer MD [facility] ER DR [address]-DERMAT [place], [place] 0375 (Wo rk) documented as of this encounter Results Lipid Panel (08/15/2018 8:04 AM EST) athologist Signature Chol, Total 75 mg/dL [facility] Comment: Lower Risk: <200 mg/dL Average Risk: 200-239 mg/dL Higher Risk: >rr=270 mg/dL Triglycerides 185 mg/dL [facility] Comment: Average Risk/Lower Risk: <150 mg/dL Borderline High Risk: 150-199 mg/dL High Risk: 200-499 mg/dL Very High Risk: >eq=422 mg/dL HDL 32 mg/dL [facility] Comment: Males: ?? Higher Risk: <40 mg/dL Females: ?? HIgher Risk: <50 mg/dL LDL Cholesterol 6 mg/dL [facility] Comment: Lowest Risk: <100 mg/dL Lower Risk: 100-129 mg/dL Borderline High Risk: 130-159 mg/dL High Risk: 160-189 mg/dL Very High Risk: >ql=627 mg/dL Chol/HDL Ratio 2.3 ratio [facility] Lipid Interpretation See Note [facility] Comment: Lipid management should be guided by a p atient? s ASCVD risk, goals and preferences. ACC/AHA Guidelines recommend high intens ity statin if clinical ASCVD or LDL greater than or equal to 190 mg/dL. http://tinyurl.com/TIG-YMW-Wsyfshdpm Adults aged 40-75 with LDL 70-189 mg/dL should have their 10 year ASCVD risk estimated with the ACC/AHA ASCVD risk es timator http://tools.acc.org/NSSRE-Sdgg-Bjzuhuql r/ Statin should be discussed if risk [...] City/State/[place] [address] (ABNORMAL) Basic Metabolic Panel (non-fasting) (08/15/2018 8:04 AM EST) P athologist Signature Glucose Lvl 116 65 - 199 [facility] mg/dL [facility] Comment: Diabetes: >=200 mg/dL plus symp toms BUN 21 (H) 10 - 20 mg/dL [facility] [...] 15 mmol/L [facility] Calcium 9.0 8.5 - [...] of body mass or the acutely ill. http://BuzzDash/[facility]EAUnk eGFR 79 >=60 mL/min/1.73 m?? [facility] Comment: The eGFR was calculated using the CKD-EP I equation. As with all creatinine based estimates of kidney function, eGFR values calculated with the CKD-EPI equation are not accurate in patients wi th acute kidney failure, extremes of body mass or the acutely ill. http://BuzzDash/[facility]OTEAUnkf Specimen Anatomical Collection Method Collection Time Receive d Time (Source) Location / / Volume Laterality Blood specimen 08/15/2018 8:04 AM 019 8:20 (specimen) EST AM EST Resulting Agency Comment Spec In Lab Danette Maxwell APRN CHEMISTRY ORDERABLES Performing Organization Address City/[facility]/[place] [address] (ABNORMAL) pro-Brain Natriuretic Peptide (08/15/2018 8:04 AM EST) P athologist Signature ProBNP 1,797 (H) <=125 [facility] pg/mL [facility] Specimen Anatomical Collection Method Collection Time Receive d Time (Source) Location / / Volume Laterality Blood specimen 08/15/2018 8:04 AM 019 8:20 (specimen) EST AM EST Resulting Agency Comment Spec In Lab Danette Maxwell APRN CHEMISTRY ORDERABLES Performing Organization Address City/State/[place] [address] documented in this encounter Visit Diagnoses Diagnosis Chronic systolic heart failure Cardiomyopathy, ischemic Other specified forms of chronic ischemi c heart disease ASCVD (arteriosclerotic cardiovascular d isease) Unspecified cardiovascular disease Essential hypertension Unspecified essential hypertension MARIA VICTORIA on CPAP Obstructive sleep apnea (adult) (pediatr ic) documented in this encounter Care Teams Program Manager Rn Relationship Specialty Start Date End Date Lovely Vicente MD PCP - General 04/16/[address] [place] [address] [address] [place] [address] documented as of this encounter
--- OUTSIDE RECORDS SUMMARY | 2022-03-23 09:35 | XMS_ITS | Encounter Summary ---
:1945 Author Organization [facility] [place] [address] Care Team Providers Name Role Phone Lovely Vicente MD Primary Care Provider Encounter Details Date Type Department Care Team Description 07/28/2019 Office Visit Cardiology at [facility] Danette Maxwell Chronic systolic heart failu re; [facility] A, STACIE ASHD (arteriosclerotic heart disease); Drive [facility] S/P CABG x 3; [place], [place] MARIA VICTORIA (obstructive sleep apnea) on CPAP; [phone] CARDIOLOGY Mixed hyperlipidemia [phone] [place], [place] [address] Social History Tobacco Use Types [...] in this encounter Progress Notes Danette Maxwell, BAIL BONDING AGENT - 07/28/2019 9:40 AM EST Images from [...] regurgitation present. 07/07/2019 - 07/21/2019 Zio Patch Resource Manager The patient had a minimum heart [...] K+ 4.5 today 6. Post-op atrial fibrillation [id number] 7 (CHF, HTN, DM, vascular disease, thromboembolism) [...] advised: Refer to EP (Dr. Mcelroy in [place]) 5. Heart Failure Clinic follow up scheduled for: 3 months with proBNP and BMP Danette Maxwell APRN 07/28/2019 documented in this encounter Plan of Treatment Upcoming Encounters Date Type Specialty Care Team Description 03/26/2022 Office Visit Cardiology Vitaliy Nobles MD [facility] [address] TADEO [place], [place] 0[address] (Wo rk) 05/28/2022 Appointment Cardiology Zulma Dolan MD [facility] Dr [place], [place] [address] (Wo rk) 05/28/2022 Laboratory Appointment Lab 05/28/2022 Office Visit Cardiology Zulma Dolan MD [facility] [place] [address] Liz Poole PA [facility] [place] [address] 06/10/2022 Office Visit Dermatology Laura Scherer MD [facility] DR [address]DERMAT [place], [place] [address] (Wo rk) documented as of this encounter Results (ABNORMAL) Basic Metabolic Panel (non-fasting) (07/28/2019 8:36 AM EST) P athologist Signature Glucose Lvl 153 65 - 199 [facility] mg/dL [facility] Comment: Diabetes: >=200 [...] of body mass or the acutely ill. http://[employer]/INMANnkf eGFR 81 >=60 mL/min/1.73 m?? [facility] Comment: The eGFR was calculated using the CKD-EP I equation. As with all creatinine based estimates of kidney function, eGFR values calculated with the CKD-EPI equation are not accurate in patients wi th acute kidney failure, extremes of body mass or the acutely ill. http://[employer]/DHnkf Specimen Anatomical Collection Method Collection Time Receive d Time (Source) Location / / Volume Laterality Blood specimen 07/28/2019 8:36 AM 020 8:46 (specimen) EST AM EST Resulting Agency Comment Spec In Lab Danette Maxwell APRN CHEMISTRY ORDERABLES Performing Organization Address City/[facility]/[place] [address] (ABNORMAL) pro-Brain Natriuretic Peptide [...] Address City/State/[place] [address] documented in this encounter Visit Diagnoses Diagnosis Chronic systolic heart failure ASHD (arteriosclerotic heart disease) Coronary atherosclerosis of unspecified type of vessel, kotlik or graft S/P CABG x 3 Postsurgical aortocoronary bypass status MARIA VICTORIA (obstructive sleep apnea) on CPAP Obstructive sleep apnea (adult) (pediatr ic) Mixed hyperlipidemia documented in this encounter Care Teams Author Relationship Specialty Start Date End Date Lovely Vicente MD PCP - General 04/16/[address] [place] [address] documented as of this encounter
--- OUTSIDE RECORDS SUMMARY | 2022-03-23 09:35 | XMS_ITS | Encounter Summary ---
:1945 Author Organization [facility] [place] [address] Care Team Providers Name Role Phone Lovely Vicente MD Primary Care Provider Reason for Visit Reason Comments Establish Care Atrial Fibrillation Congestive Heart Failure Cardiomyopathy Encounter Details Date Type Department Care Team Description 09/06/2019 [facility] Ischemic cardiomyopathy Osvaldo STRANGE [address] [place], [place] CARDIOLOGY DEPT. [address] [place] [address] [phone] Social History Tobacco Use Types Packs/Day Years [...] today For any questions, call my office: [phone] To access your health care information, go to the web at: [email or web address] (you will need to register) For educational materials: [email or web address] Karel TRAMMELL.[facility], Clinical Cardiac Electrophysiology, [facility], [facility] A Healthy Heart: After Your Visit [...] least 2 servings of fish a week. [place], mackerel, mcfadden, sardines, and chunk light tuna [...] irregular heartbeat. After you call 911, the paper products machine operator may tell you to chew [...] more? Visit our health information library at [email or web address]. You can also view health information on Ch[employer]ory, your personal patient account. Log in or sign up today. Enter F075 in the search box to learn more about A Healthy Heart: After Your Visit. ?? [phone] [employer] documented in this encounter Progress Notes Karel Gonzalez MD - 09/06/2019 2:20 PM EST Images from the original note were not included. Section of Cardiology/Cardiac Electrophysiology [facility] Clinical Cardiac Electrophysiology Consult Patient ID Don Fatima 1945 [id number] Don Fatima is referred to the EP clinic by Danette Maxwell APRN PhD Chief Complaint Dyspnea on exertion Ischemic cardiomyopathy History This is a 74 y.o. male following up/being seen in clinic for evaluation for ongoing anticoagulation. He has a Xhsvw9Jhyf score of ~ 6-7. He has a [...] on phone: None Gets together: None Attends amish service: None Active member of club or [...] reviewed the ECG: sinus rhythm, 72 bpm, IA 140 ms, QRS 100 ms, QT 400 [...] EP clinic KAREL GONZALEZ MD Cardiac Electrophysiology [facility] T: [phone] F: [phone] minutes of this 40 minute encounter were spent in counselling, as described above Cc: MD Danette Cr APRN PhD Janett Espino DPM documented in this encounter Plan of Treatment Upcoming Encounters Date Type Specialty Care Team Description 03/26/2022 Office Visit Cardiology Vitaliy Nobles MD [facility] DR TADE[address] [place], [place] [address] (Wo rk) 05/28/2022 Appointment Cardiology Zulma Dolan MD [facility] [place], [place] [address] (Wo rk) 05/28/2022 Laboratory Appointment Lab 05/28/2022 Office Visit Cardiology Zulma Dolan MD [facility] [place] [address] Liz Poole PA [facility] [place] [address] 06/10/2022 Office Visit Dermatology Laura Scherer MD [facility] DR [address]-DERMAT [place], [place] 0[address] (Wo rk) documented as of [...] 446 ms MUSE SYSTEM (Bezet) Calculated P [place] 37 degrees MUSE SYSTEM Calculated R [place] -23 degrees MUSE SYSTEM Calculated T [place] 116 degrees MUSE SYSTEM INTERPRETATION Normal sinus rhythm MUSE SYSTEM Inferior infarct (cited on or before 25-JAN-2013) ST & T wave abnormality, consider anterolateral ischemia Abnormal ECG When compared with ECG of 19-AUG-2017 10:23, No significant change was found Confirmed by MD Castellon Daniel ([id number]) on 09/08/2019 10:22:4 7 AM Specimen Anatomical [...] disease documented in this encounter Care Teams International Account Representative Relationship Specialty Start Date End Date Lovely Vicente MD PCP - General 04/16/[address] [place] [address] documented as of this encounter
--- OUTSIDE RECORDS SUMMARY | 2022-03-23 09:35 | XMS_ITS | Encounter Summary ---
:1945 Author Organization [facility] [address] Care Team Providers Name Role Phone Lovely Vicente MD Primary Care Provider Encounter Details Date Type Department Care Team Description 01/16/2019 Laboratory Appointment Lab 3L [facility] [place] [id number] Social History Tobacco Use Types Packs/Day Years [...] Nobles MD [facility] DR CARLYLE [place], [place] [address] (Wo rk) 05/28/2022 Appointment Cardiology Zulma Dolan MD [facility] [address] [place], [place] [address] (Wo rk) 05/28/2022 Laboratory Appointment Lab 05/28/2022 Office Visit Cardiology Zulma Dolan MD [facility] [place] [address] Liz Poole PA [facility] [place] [address] 06/10/2022 Office Visit Dermatology Laura Scherer MD [facility] DR [address]-DERMAT [place], [place] 0375 (Wo rk) documented as [...] Organization Address City/State/[place] [address] (ABNORMAL) Basic Metabolic Panel (non-fasting) (01/16/2019 7:49 AM EDT) athologist Signature Glucose Lvl 105 65 - 199 [facility] mg/dL [facility] Comment: Diabetes: >=200 mg/dL plus symp toms BUN 25 (H) 10 - 20 mg/dL [facility] Creatinine 1.08 0.80 - 1.50 mg/dL [facility] Sodium 145 135 - [...] of body mass or the acutely ill. http://flikdate/[facility] HOLDENVILLEnkf eGFR 79 >=60 mL/min/1.73 m?? [facility] Comment: The eGFR was calculated using the CKD-EP I equation. As with all creatinine based estimates of kidney function, eGFR values calculated with the CKD-EPI equation are not accurate in patients wi th acute kidney failure, extremes of body mass or the acutely ill. http://flikdate/[facility] HOLDENVILLEnkf Specimen Anatomical Collection Method Collection Time Receive d Time (Source) Location / / Volume Laterality Blood specimen 01/16/2019 7:49 AM 019 7:55 (specimen) EDT AM EDT Resulting Agency Comment Spec In Lab Danette Maxwell APRN CHEMISTRY ORDERABLES Performing Organization Address City/State/[place] [address] documented in this encounter Visit Diagnoses Diagnosis Chronic systolic heart failure documented in this encounter Care Teams Implementation Coordinator Relationship Specialty Start Date End Date Lovely Vicente MD PCP - General 04/16/[address] [place] [address] documented as of this encounter
--- OUTSIDE RECORDS SUMMARY | 2022-03-23 09:35 | XMS_ITS | Encounter Summary ---
:1945 Author Organization [facility] [place] [address] Care Team Providers Name Role Phone Lovely Vicente MD Primary Care Provider Encounter Details Date Type Department Care Team Description 03/20/2021 Ancillary Procedure Radiology Library [place] [address] [place] [address] [phone] Social History Tobacco Use Types Packs/Day Years [...] MD [facility] [address] TADEO [place], [place] [address] (Wo rk) 05/28/2022 Appointment Cardiology Zulma Dolan MD [facility] Dr [place], [place] [address] (Wo rk) 05/28/2022 Laboratory Appointment Lab 05/28/2022 Office Visit Cardiology Zulma Dolan MD [facility] [place] [address] [facility] [place] [address] 06/10/2022 Office Visit Dermatology Laura Scherer MD [facility] ER DR [address]-DERMAT [place], [place] [address] (Wo rk) documented as of [...] Address City/State/ZIP Code Phon e Number RAD [place], [place] documented in this encounter Visit Diagnoses Not on filedocumented in this encounter Care Teams L Tacker Relationship Specialty Start Date End Date Lovely Vicente MD PCP - General 04/16/[address] [place] [address] documented as of this encounter
--- OUTSIDE RECORDS SUMMARY | 2022-03-23 09:35 | XMS_ITS | Encounter Summary ---
:1945 Author Organization [facility] [place] [address] Care Team Providers Name Role Phone Lovely Vicente MD Primary Care Provider Reason for Visit Auth/Cert Specialty Diagnoses / Procedures Referred By Contact Refer red To Contact Diagnoses NSTEMI Procedures emerg ipi Referral ID Status Reason Start Date Expiration Date Visits Requ ested Visits Authorized [id number] 1 1 Encounter Details Date Type Department Care Team Description 12/10/2021 Surgery First Officer Asa Coulter MD CARDIAC CATHETERIZATION [facility] [place] [address] [place] [address] [phone] (Wo rk) Social History Tobacco Use Types [...] Don Fatima Patient Age: 76 y.o. Language: Hong Konger Race: White Ethnicity: Not nor Admit date: [...] Peter PA-C Kelly LaFlamme PA-C Cardiovascular Medicine [phone] Discharge Diagnoses (Hospital Problems) and Secondary Diagnoses [...] 3.75 guiding catheter and a 3.5 Fr [place] [facility] Elim Ira 20 Mhz using Manual pullback. Imaging was successful. Image quality was good. The ostial LCX showed moderate diffuse atherosclerotic plaque with scattered three quadrant calcification. Measurements were performed after pre-dilation. Post Intervention: The stent was well expanded and apposed. Intravascular Ultrasound was performed in the distal LM using a 7 Fr EBU 3.75 guiding catheter and a 3.5 Fr [place] [facility] Elim Ira 20 Mhz using Manual pullback. Imaging was successful. Image quality was good. The distal LM showed moderate diffuse atherosclerotic plaque. Post Intervention: The stent was well expanded and apposed. Indication for Intervention: Coronary intervention was indicated for primary therapy for an acute myocardial infarction. The priority for the procedure was Urgent. The [facility] indication for the procedure was NSTE-ACS. LVEF [...] may require modification of this regimen. Consult [facility] [...] vascular congestion and cardiomegaly. ?? TTE from [facility] 12/08/21 ? Prior Cardiac [...] prior thyroidectomy in 2012 who presented to [facility] with 1 week progressing [...] 03/2021 with Liz Poole PA-C. ?? At [facility], respiratory distress with [...] and diet drinks did not cause his NC. This is what his thought was the [...] appointments: During 8am-5pm Wednesday through Wednesday call [phone] to speak with a nurse in the cardiology clinic All other times call [phone] and ask to speak to the linux consultant recruitment consultant. Return to work: One week Driving: No driving for 48 hours after catheterization. Follow up Appointments: PCP Lovely Vicente MD [phone] to see patient at the end of December for annual check up. Patient to see Dr. Lorenzana at 1120 am at December 19 for a post hospital check up. Junior Loan Processor Dr. De Oliveira to see you in [facility]. Left a message for office to set a date and time. Please call [phone] Nobles to see the patient for a same day cath in 2-3 weeks from now. Office to call with a date and time. For questions please call [phone] Home oxygen therapy: N/A Arrangements for VNA/home care: none Future Appointments and Orders Future Orders Complete By Expires Basic Metabolic Panel (non-fasting) [LAB15 Custom] 12/19/2021 (Approximate) 12/12/2022 Process Instructions: INCLUDES: Calcium, BUN, Creat, GFR, Glucose, Lytes Scheduling Instructions: Comments: Questions: Referral to Cardiac Rehab [[id number] Custom] As directed Process Instructions: If no [...] appointments: During 8am-5pm Wednesday through Wednesday call [phone] to speak with a nurse in the cardiology clinic All other times call [phone] and ask to speak to the linux consultant recruitment consultant. Return to work: One week Driving: No driving for 48 hours after catheterization. Follow up Appointments: PCP Lovely Vicente MD [phone] to see patient at the end of December for annual check up. Patient to see Dr. Lorenzana at 1120 am at December 19 for a post hospital check up. Junior Loan Processor Dr. De Oliveira to see you in [facility]. Left a message for office to set a date and time. Please call [phone] Nobles to see the patient for a same day cath in 2-3 weeks from now. Office to call with a date and time. For questions please call [phone] Home oxygen therapy: N/A Arrangements for VNA/home [...] as of this encounter Progress Notes Janneth Padilal PA - 12/12/2021 7:36 AM EDT Images from the original note were not included. Inpatient Cardiology Progress Note Patient Name: Don Fatima Service: FLIGHT TECHNICIAN / PA Responsible Attending: Ifeanyi Truong [...] was given Lasix 80mg IV x1 in quality assurance qa lab technician. Tolerated procedure well. Home today [...] pulmonary vascular congestion and cardiomegaly. 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 Endocrinology Diabetes Management Pager [phone] 20 minutes of this 35 minute visit [...] Progress Note Patient Name: Don Fatima Service: FLIGHT TECHNICIAN / PA Responsible Attending: Iker Cuevas [...] + trop. Known CAD with hx of NC and CABG. DM. MARIA VICTORIA.ICM. ??? ASHD [...] was given Lasix 80mg IV x1 in quality assurance qa lab technician. Tolerated procedure well. Review of [...] Intake/Output Summary (Last 24 hours) at 12/11/2021 09 Last data filed at 12/11/2021 0508 Gross [...] pulmonary vascular congestion and cardiomegaly. TTE from [facility] 12/08/21 Prior Cardiac Studies: [...] started on heparin infusion, and continued on beta-chadiwck therapy. Transferred to for further management of [...] and answered his questions. Iker Cuevas MD [facility] Total time spent on review of records prior to visit, face to face time with patient during visit, documentation, and coordination of care with other clinicians: 25 minutes. . Iker Cuevas MD - 12/10/2021 12:30 PM EDT Images from the original note were not included. Inpatient Cardiology Progress Note Patient Name: Don Fatima Service: FLIGHT TECHNICIAN / PA Responsible Attending: Iker Cuevas MD Reason for continued hospitalization: NSTEMI- s/p R/LHC- PCW 27, occluded SVGs s/p PCI to ostial LCX ADHF and hypoxia- IV diuresis Active Problems: Active Hospital Problems Diagnosis ??? Admitted with 2 days of sob, hypoxemia, and + trop. Known CAD with hx of NC and CABG. DM. MARIA VICTORIA.ICM. ??? ASHD [...] was given Lasix 80mg IV x1 in quality assurance qa lab technician. Tolerated procedure well. Review of [...] pulmonary vascular congestion and cardiomegaly. TTE from [facility] 12/08/21 Prior Cardiac Studies: [...] Discussed with MD Migdalia Peter PA-C Pager #[phone] 12/10/2021 Cardiology Attending Note I have seen [...] updated and given pictures. Iker Cuevas MD [facility] Total time spent on review of records prior to visit, face to face time with patient during visit, documentation, and coordination of care with other clinicians: 35 minutes. Iker Cuevas MD - 12/09/2021 7:28 AM EDT Images from the original note were not included. Inpatient Cardiology Progress Note Patient Name: Don Fatima Service: FLIGHT TECHNICIAN / PA Responsible Attending: Iker Cuevas MD Reason for continued hospitalization: NSTEMI- awaiting R/LHC ADHF and hypoxia- IV diuresis, R/LHC Active Problems: Active Hospital Problems Diagnosis ??? Admitted with 2 days of sob, hypoxemia, and + trop. Known CAD with hx of NC and CABG. DM. MARIA VICTORIA.ICM. ??? ASHD [...] pulmonary vascular congestion and cardiomegaly. TTE from [facility] 12/08/21 Prior Cardiac Studies: [...] Discussed with MD Migdalia Peter PA-C Pager #[phone] 12/09/2021 Cardiology Attending Note I have seen and examined the patient. I agree with the findings above. Developed CHF early this am despite getting more iv lasix last evening. Feeling better now. INR > 2. Lungs still wet at base. Echo at [facility] showed EF 35% with mild mod MR slightly lower than last value here. -vit K 2.5 orally to facilitate correction of INR- this will take 12-24 hours to take effect -furosemide 80 mg iv now -postpone right and left heart cath until tomorrow given INR and ADHF -increase statin to achieve LDL < 70 -CPAP tonight Iker Cuevas MD [facility] Total time spent on [...] + trop. Known CAD with hx of NC and CABG. DM. MARIA VICTORIA.ICM. ??? ASHD [...] prior thyroidectomy in 2012 who presented to [facility] with 1 week progressing [...] visit 03/2021 with Liz Poole PA-C. At [facility], respiratory distress with [...] SETUP performed by Manny Mcknight MD at [facility] MAIN OR ??? PRO AMPUTATION FOOT, TRANSMETATARSAL Right 08/09/2017 AMPUTATION, TRANSMETATARSAL (WRVU 12.71) performed by Yonathan Smith MD at [facility] MAIN OR ??? PRO CABG, ARTERIAL, SINGLE N/A 07/07/2017 @CABG, USING ARTERIAL GRAFT;SINGLE ARTERIAL GRAFT (WRVU 33.75) performed by Yuan Retana MD at [facility] MAIN OR ??? PRO CABG, ARTERY-VEIN, TWO N/A 07/07/2017 @CABG, TWO VENOUS GRAFTS & ARTERIAL GRAFT (WRVU 7.93) performed by Yuan Retana MD at [facility] MAIN OR ??? PRO COLONOSCOPY, REMV LESN, SNARE 01/16/2014 COLONOSCOPY, POLYPECTOMY, REMOVAL LESION BY SNARE performed by Nohemi Jaimes MD at [facility] ENDOSCOPY ??? PRO DRESSING CHANGE UNDER ANESTHESIA Right 08/11/2017 (MSURG) DRESSING CHANGE (FOR OTHER THAN IVAN) UNDER ANES. (WRVU 0.86) performed by Lamar Smith MD at [facility] MAIN OR ??? PRO ENDOSCOPY W/VIDEO-ASST VEIN HARVEST, CABG Right 07/07/2017 ENDOSCOPIC HARVEST VEIN(S) FOR CABG (WRVU 0.31) performed by Yuan Retana MD at [facility] MAIN OR ??? PRO THYROIDECTOMY 03/28/2013 THYROIDECTOMY, TOTAL OR COMPLETE performed by Manny Mcknight MD at [facility] MAIN OR Significant Family History: Family [...] (H) 65 - 199 mg/dL Labs at [facility] 12/08/2021-troponin I 8004 (UN [...] Monitor for ADRs. Trend troponins. Admission EKG. [facility] 12/09; consented. TTE. Telemetry monitoring, daily [...] code #Diet-carb control; n.p.o. after midnight for [facility] #DVT prophy- heparin infusion #GI prophy- PPI Discussed with MD Morgan Peter PA-C APP2 pager [phone] 12/08/2021 Cardiology Attending Note I have seen [...] is type 1 due to graft or tazlina coronary stenosis vs acute injury from CHF. 3. PAF: currrently in NSR. Have replaced warfarin with heparin 4. PAD: stable 5. DM: stable 6. CKD: will monitor and minimize contrast. Pt very appreciative of Dr. Yuan Retana's care in 2018. Will let him know patient is here. Iker Cuevas MD [facility] documented in this encounter [...] Type: *No Product type* / Secondary Insurance: [employer] [place] Prescription Coverage: Yes This plan was [...] cath without complications. Migdalia Parker PA-C Pager #[phone] 12/10/2021 Initial Assessments - Nick Georges RN [...] COVID test: Lab Results Component Value Date [id number] Not Detected 12/08/2021 Past medical History: Past [...] spouse would be surrogate decision maker per [place] surrogate decision making law. (Only good for 180 days) Any patient receiving care at [facility] must abide by [place] law. The hierarchy for surrogate decision making [...] (i) The agent with financial power of city attorney or a conservator appointed in accordance [...] - standard, cane - straight Home Address: [address] [place] [address] [place] [address] Social & Family Supports: All names listed below confirmed with patient as current and correct Extended Emergency Contact Information Primary Emergency Contact: Kisha Fatima Address: [address] [place] [address] [place] [address] [facility] Mobile Relation: Spouse Secondary Emergency Contact: Elba Swenson Address: [place], [place] [id number] [place] [address] Mobile Relation: Child Current Care Provided by: [...] [facility]ICAL [facility]ENTER Prescription Coverage: Yes Preferred Pharmacy: [facility] [place] [phone] [facility] [address] - [place], [place] - [address] [place] [address] [place] Status: Patient is a : unable to assess Primary Care Provider: Lovely Vicente MD [phone] Patient/Caregiver Goals of Treatment: Get out of here Potential Needs for Transition of Care: none Agency Referrals: none patient has used [facility] in the past Transportation: no concerns Transportation Anticipated: family or friend will provide Concerns to be Addressed: patient refuses services, discharge planning Assessment: Patient is admitted to [facility] Service pager [phone] for 76 y.o.??male??with h/o??CAD s/p 3vCABG (THOMPSON-LAD, [...] status on current unit. Nick Georges RN panel lay up worker, Office of Care Management Pager: [phone] Brief Op Note - Vitaliy Nobles MD - 12/10/2021 8:31 AM EDT Images from the original note were not included. Ltac, Located [facility] [place] [address] CORONARY ANGIOGRAM AND PERCUTANEOUS CORONARY INTERVENTION REPORT Patient: Don Fatima : 1945 MR number: [id number] Date of Service: 12/10/2021 Extrusion Die Template Maker: Vitaliy Nobles MD Fellow: [place] [...] and to provide a review of senior care diabetes care. Diabetes History: Don Fatima has had diabetes for 10 years. He has been on insulin for the last several years andis managed by his PCP. Lives in [place], [place] with his . States that he [...] 5 gm carb ratio for each meal) residential diabetes care: Medications - Outpatient treatment regimen recommendations pending based on the hospital course. Monitoring - continue BG tid ac & hs Diet - low fat/low carb diet Exercise - weight-bearing exercise 30 min/day, as tolerated Thank you for allowing us to provide care for your patient Desirae Jett APRN Endocrinology Pager [phone] 70 minutes of this 80 minute visit [...] + trop. Known CAD with hx of NC and CABG. DM. MARIA VICTORIA.ICM. ??? ASHD [...] to remain on Med/Surg floor, please page [phone] for any further questions or concerns. LANDON [...] for further details. STEPHANIE Rebolledo 12/08/2021 Pager [phone] documented in this encounter Plan of Treatment Upcoming Encounters Date Type Specialty Care Team Description 03/26/2022 Office Visit Cardiology Vitaliy Nobles MD [facility] [address] [place], [place] [address] (Wo rk) 05/28/2022 Appointment Cardiology Zulma Dolan MD [facility] [address] [place], [place] [address] (Wo rk) 05/28/2022 Laboratory Appointment Lab 05/28/2022 Office Visit Cardiology Zulma Dolan MD [facility] [place] [address] Liz Poole PA [facility] [place] [address] 06/10/2022 Office Visit Dermatology Laura Scherer MD [facility] DR TEJA GR-DERMAT OLOGY [place], [place] [address] (Wo rk) Scheduled Referrals Name [...] 65 - 199 [facility] mg/dL [facility] Comment: Supplemental ranges: <140 mg/dL before meals <180 mg/dL all other times of the day Specimen Anatomical Collection Method Collection Time Receive d Time (Source) Location / / Volume Laterality Blood 12/12/2021 7:42 AM 7:42 EDT AM EDT Ifeanyi Truong MD POINT OF CARE TEST ORDERABLE S Performing Organization Address City/State/[place] [address] (ABNORMAL) Differential, Automated (12/12/2021 4:51 AM EDT) athologist [facility] Neutrophils % 75.4 % [facility] Neutr Abs (ANC) 5.95 1.70 - [facility] 6.10 [facility] x10(3)/[facility] LABORATORY Lymphocytes % 12.2 % [facility] Lymphocytes Abs 1.0 0.9 - 3.2 [facility] x10(3)/[facility] LABORATORY Monocytes % 9.5 % [facility] Monocyte Abs 0.8 0.3 - 0.9 [facility] x10(3)/[facility] LABORATORY Eosinophils % 1.8 % [facility] Eosinophils Abs 0.1 0.0 - 0.4 [facility] x10(3)/[facility] LABORATORY Basophils % 0.5 % [facility] Basophils Abs 0.0 0.0 - 0.1 [facility] x10(3)/[facility] LABORATORY Immature Gran [...] Abs 0.05 (H) 0.00 - 0.04 x10(3)/[facility] LABORATORY Specimen Anatomical Collection Method Collection Time Receive d Time (Source) Location / / Volume Laterality Blood 12/12/2021 4:51 AM 2 5:06 EDT AM EDT Resulting Agency Comment Spec In Lab Bijan Sun MD HEMATOLOGY ORDERABLES Performing Organization Address City/State/[place] [address] (ABNORMAL) Hemogram (12/12/2021 4:51 AM EDT) Analysis Performed At Patho logist Time Signature WBC 7.9 4.0 - 9.5 [facility] x10(3)/[facility] LABORATORY RBC 4.19 (L) 4.58 - [facility] 5.54 [facility] x10(6)/[facility] LABORATORY Hemoglobin 12.1 (L) 13.7 [facility] 16.5 g/dL [facility] Hematocrit 36.7 (L) 40.5 - [facility] 48.5 % [facility] MCV 87.6 82.9 [facility] 93.1 [facility] LABORATORY MCH 28.9 27.5 - [facility] 32.1 pg [facility] MCHC 33.0 32.0 - [facility] 35.7 g/dL [facility] Platelets 231 145 - 357 [facility] x10(3)/[facility] LABORATORY RDWSD 47.2 (H) 36.0 - [facility] 45.0 [facility] LABORATORY RDWCV 14.6 (H) 11.4 - [facility] R[facility]AN 13.8 % [facility] MPV 9.5 7.6 - 12.9 [facility] LABORATORY nRBC % Auto 0.0 % [facility] nRBC Abs Auto 0.000 0.000 - [facility] 0.000 [facility] x10(3)/[facility] LABORATORY Specimen Anatomical Collection Method Collection Time Receive d Time (Source) Location / / Volume Laterality Blood 12/12/2021 4:51 AM 2 5:06 EDT AM EDT Resulting Agency Comment Spec In Lab Bijan Sun MD HEMATOLOGY ORDERABLES Performing Organization Address City/State/[place] [address] (ABNORMAL) Prothrombin Time (12/12/2021 4:51 AM EDT) P athologist Signature PT 14.9 (H) 9.4 - 12.5 [facility] LABORATORY INR 1.3 [facility] Comment: An INR [...] Cuevas MD HEMATOLOGY ORDERABLES Performing Organization Address City/[facility]/[place]IP [place] [address] (ABNORMAL) BMP w/fasting Glucose (12/12/2021 4:51 AM EDT) P athologist Signature Glucose 152 (H) 65 - 99 [facility] Fasting mg/dL [facility] Comment: ?Fasting* Glucose Interpretive C riteria [...] of Diabetes Mellitus, Position Statement from the [place] [employer]. ??Diabete s Care, Volume 33, Supplement 1, Jul 2009 BUN 52 (H) 10 - 20 mg/dL [facility] Creatinine 1.72 (H) 0.80 [...] estions. Chloride 105 98 - 107 mmol/L [facility] CO2 21 (L) 22 - 31 mmol/L [facility] Anion Gap 17 (H) 5 - 15 mmol/L [facility] Calcium 8.9 8.5 - 10.5 mg/dL [facility] Estimated GFR 38 (L) >=60 mL/min/1.73 m?? [facility] [...] Phon e [place] [facility] [address] Magnesium (12/12/2021 4:51 AM EDT) athologist Signature Magnesium 1.02 0.69 - 1.07 [facility] mmol/L [facility] Specimen Anatomical Collection Method Collection Time Receive d Time (Source) Location / / Volume Laterality Blood 12/12/2021 4:51 AM 2 5:06 EDT AM EDT Resulting Agency Comment Spec In Lab Iker Cuevas MD CHEMISTRY ORDERABLES Performing Organization Address City/State/ZIP Code Phon e Number [address] POCT Glucose (12/12/2021 3:43 AM EDT) athologist Signature POC Glucose 138 65 - [address] [facility] [address] mg/dL [facility] Comment: Supplemental ranges: <140 mg/dL before meals <180 mg/dL all other times of the day Specimen Anatomical Collection Method Collection Time Receive d Time (Source) Location / / Volume Laterality Blood 12/12/2021 3:43 AM 2 3:43 EDT AM EDT Iker Cuevas MD POINT OF CARE TEST ORDERABLE S Performing Organization Address City/State/ZIP Code Phon e Number [address] POCT Glucose (12/11/2021 11:44 PM EDT) athologist Signature POC Glucose 124 65 - [address] [address] mg/dL [facility] Comment: Supplemental ranges: <140 mg/dL before meals <180 mg/dL all other times of the day Specimen Anatomical Collection Method Collection Time Receive d Time (Source) Location / / Volume Laterality Blood 12/11/2021 11:44 12/11/2021 PM EDT 11:44 PM EDT Iker Cuevas MD POINT OF CARE TEST ORDERABLE S Performing Organization Address City/State/[place] [address] (ABNORMAL) POCT Glucose (12/11/2021 8:12 PM EDT) athologist Signature POC Glucose 200 (H) 65 - 199 [place] [facility] mg/dL [facility] Comment: Supplemental ranges: <140 mg/dL before meals <180 mg/dL all other times of the day Specimen Anatomical Collection Method Collection Time Receive d Time (Source) Location / / Volume Laterality Blood 12/11/2021 8:12 PM 2 8:12 EDT PM EDT Iker Cuevas MD POINT OF CARE TEST ORDERABLE S Performing Organization Address City/State/[place] [address] (ABNORMAL) POCT Glucose (12/11/2021 6:50 PM EDT) athologist Signature POC Glucose 245 (H) 65 - [address] [facility] [address] mg/dL [facility] Comment: Supplemental ranges: <140 mg/dL before meals <180 mg/dL all other times of the day Specimen Anatomical Collection Method Collection Time Receive d Time (Source) Location / / Volume Laterality Blood 12/11/2021 6:50 PM 2 6:50 EDT PM EDT Iker Cuevas MD POINT OF CARE TEST ORDERABLE S Performing Organization Address City/State/[place] [address] (ABNORMAL) POCT Glucose (12/11/2021 4:00 PM EDT) athologist Signature POC Glucose 383 (H) 65 - 199 [place] mg/dL [facility] Comment: Supplemental ranges: <140 mg/dL before meals <180 mg/dL all other times of the day Specimen Anatomical Collection Method Collection Time Receive d Time (Source) Location / / Volume Laterality Blood 12/11/2021 4:00 PM 2 4:00 EDT PM EDT Iker Cuevas MD POINT OF CARE TEST ORDERABLE S Performing Organization Address City/State/[place] [address] (ABNORMAL) POCT Glucose (12/11/2021 12:01 PM EDT) P athologist Signature POC Glucose 342 (H) 65 - 199 [place] mg/dL [facility] Comment: Supplemental ranges: <140 mg/dL before meals <180 mg/dL all other times of the day Specimen Anatomical Collection Method Collection Time Receive d Time (Source) Location / / Volume Laterality Blood 12/11/2021 12:01 12/11/2021 PM EDT 12:01 PM EDT Iker Cuevas MD POINT OF CARE TEST ORDERABLE S Performing Organization Address City/State/[place] [address] COVID-19 PCR (12/11/2021 10:13 AM EDT) Patholo gist Method Time Signature SARS-CoV-2 Not Detected Not Detected [facility] RNA [facility] Comment: This result should [...] diagnosis of COVID-19 is performed using the [employer] Al[employer] m RONNA S-CoV-2 Assay as authorized by the FDA Emergency Use Authorization (EUA). This EUA assay is intended for In-vitro Diagnostic (IVD) use with respiratory sp ecimens such as nasopharyngeal swabs collected from individuals during the ac terrence phase of infection. This assay is performed based on the instructions for use provided by [employer] and additional guidance provided by CDC and FDA. Testing is performed in the Clinical Genomics and Advanced Technolog y Laboratory within the Department of Pathology and Laboratory Medicine at [facility], certified under the Clinical Laboratory [...] is infected. As required or requested by [facility], positive specimens may be sent for additional [...] clinical management guidance information are available at [facility] CDC Coronavirus Disease 2019 (COVID-19) webpage under Information fo r Healthcare Professionals (https://www.cdc.gov/coronavirus/2019-nc ov/hcp/index.html) Additional information about this and ot her EUA tests can be found in provider and patient fact sheets at the following FDA website: https://www.fda.gov/medical-devices/jhhtxxtqpzu-bcvwwrq-6619-zxlgr-70-ljjzvgfxm- dju-dlqrhjenumbnfx-zfathip-devices/ksffp-mdyjwwzurjw-yenr SARS-Cov-2 RNA Source FLIGHT TECHNICIAN Swab [facility] Specimen (Source) Anatomical Collection Method Collection Time Re ceived Time Location / / Volume Laterality Nasopharyngeal Swab 12/11/2021 10:13 0503/2022 AM EDT 11:16 AM EDT Comment: Symptoms->Surveillance Resulting Agency Comment Spec In Lab Iker Cuevas MD MICROBIOLOGY - GENERAL ORDER [place] Performing Organization Address City/State/[place] [address] POCT Glucose (12/11/2021 7:34 AM EDT) P athologist Signature POC Glucose 198 65 - 199 [facility] R[facility]AN mg/dL [facility] Comment: Supplemental ranges: <140 mg/dL before meals <180 mg/dL all other times of the day Specimen Anatomical Collection Method Collection Time Receive d Time (Source) Location / / Volume Laterality Blood 12/11/2021 7:34 AM 2 7:34 EDT AM EDT Iker Cuevas MD POINT OF CARE TEST ORDERABLE S Performing Organization Address City/State/[place] [address] (ABNORMAL) POCT Glucose (12/11/2021 5:07 AM EDT) athologist Signature POC Glucose 208 (H) 65 - [address] [facility] mg/dL [facility] Comment: Supplemental ranges: <140 mg/dL before meals <180 mg/dL all other times of the day Specimen Anatomical Collection Method Collection Time Receive d Time (Source) Location / / Volume Laterality Blood 12/11/2021 5:07 AM 2 5:07 EDT AM EDT Iker Cuevas MD POINT OF CARE TEST ORDERABLE S Performing Organization Address City/[facility]/[place] [address] (ABNORMAL) Differential, Automated (12/11/2021 4:28 AM EDT) [facility] gist Method Time Signature Neutrophils % 79.6 % [facility] Neutr Abs (ANC) 7.01 (H) 1.70 - [facility] 6.10 [facility] x10(3)/[facility] L LABORATORY Lymphocytes % 9.1 % [facility] Lymphocytes Abs 0.8 (L) 0.9 - 3.2 [facility] x10(3)/[facility] LABORATORY Monocytes % 9.2 % [facility] Monocyte Abs 0.8 0.3 - 0.9 [facility] x10(3)/[facility] LABORATORY Eosinophils % 1.3 % [facility] Eosinophils Abs 0.1 0.0 - 0.4 [facility] x10(3)/[facility] LABORATORY Basophils % 0.5 % [facility] LAB[facility] Basophils Abs 0.0 0.0 - 0.1 [facility] x10(3)/[facility] LABORATORY Immature Gran % 0.30 % [facility] [...] 0.04 x10(3)/[facility] MAR Y [facility] LABORATORY Specimen Anatomical Collection Method Collection Time Receive d Time (Source) Location / / Volume Laterality Blood 12/11/2021 4:28 AM 4:37 EDT AM EDT Resulting Agency Comment Spec In Lab Bijan Sun MD HEMATOLOGY ORDERABLES Performing Organization Address City/State/[place] [address] (ABNORMAL) Hemogram (12/11/2021 4:28 AM EDT) Analysis Performed At Patho logist Time Signature WBC 8.8 4.0 - 9.5 [facility] x10(3)/[facility] LABORATORY RBC 4.15 (L) 4.58 - [facility] 5.54 [facility] x10(6)/[facility] LABORATORY Hemoglobin 11.9 (L) 13.7 - [facility] 16.5 g/dL [facility] Hematocrit 36.9 (L) 40.5 [facility] 48.5 % [facility] MCV 88.9 82.9 [facility] 93.1 fL [facility] MCH 28.7 27.5 - [facility] 32.1 pg [facility] MCHC 32.2 32.0 - [facility] 35.7 g/dL [facility] Platelets 211 145 - 357 [facility] x10(3)/[facility] LABORATORY RDWSD 48.3 (H) 36.0 - [facility] 45.0 [facility] LABORATORY RDWCV 14.8 (H) 11.4 - [facility] 13.8 % [facility] MPV 9.6 7.6 - 12.[address] [facility] [address] LAB[facility]ORY nRBC % Auto 0.0 % [facility] LABORATORY nRBC Abs Auto 0.000 0.000 - [facility] 0.000 [facility] x10(3)/[facility] LABORATORY Specimen Anatomical Collection Method Collection Time Receive d Time (Source) Location / / Volume Laterality Blood 12/11/2021 4:28 AM 2 4:37 EDT AM EDT Resulting Agency Comment Spec In Lab Bijan Sun MD HEMATOLOGY ORDERABLES Performing Organization Address City/[facility]/ZIP Code Phon e Number [address] (ABNORMAL) Prothrombin Time (12/11/2021 4:28 AM EDT) P athologist Signature PT 17.7 (H) 9.4 - 12.5 [facility] LABORATORY INR 1.6 [facility] Comment: An INR [...] Cuevas MD HEMATOLOGY ORDERABLES Performing Organization Address City/[facility]/ZIP Code Phon e Number [address] (ABNORMAL) BMP w/fasting Glucose (12/11/2021 4:28 AM EDT) P athologist Signature Glucose 207 (H) 65 - 99 [facility] Fasting mg/dL [facility] Comment: ?Fasting* Glucose Interpretive C riteria [...] of Diabetes Mellitus, Position Statement from the [employer]. ??Diabete s Care, Volume 33, Supplement 1, Jul 2009 BUN 49 (H) 10 - 20 mg/dL [facility] LABORATORY Creatinine 1.43 0.80 - [...] Estimated GFR 48 (L) >=60 mL/min/1.73 m?? [facility] [...] Address City/State/ZIP Code Phon e Number [address] Magnesium (12/11/2021 4:28 AM EDT) athologist Signature Magnesium 1.04 0.69 - 1.07 [facility] mmol/L [facility] Specimen Anatomical Collection Method Collection Time Receive d Time (Source) Location / / Volume Laterality Blood 12/11/2021 4:28 AM 2 4:37 EDT AM EDT Resulting Agency Comment Spec In Lab Iker Cuevas MD CHEMISTRY ORDERABLES Performing Organization Address City/[facility]/[place] [address] POCT Glucose (12/11/2021 3:58 AM EDT) athologist Signature POC Glucose 189 65 - 199 [facility] mg/dL [facility] Comment: Supplemental ranges: <140 mg/dL before meals <180 mg/dL all other times of the day Specimen Anatomical Collection Method Collection Time Receive d Time (Source) Location / / Volume Laterality Blood 12/11/2021 3:58 AM 2 3:58 EDT AM EDT Iker Cuevas MD POINT OF CARE TEST ORDERABLE S Performing Organization Address City/State/ZIP Code Phon e Number [address] (ABNORMAL) POCT Glucose (12/10/2021 11:45 PM EDT) athologist Signature POC Glucose 205 (H) 65 - [address] [address] [facility] mg/dL [facility] Comment: Supplemental ranges: <140 mg/dL before meals <180 mg/dL all other times of the day Specimen Anatomical Collection Method Collection Time Receive d Time (Source) Location / / Volume Laterality Blood 12/10/2021 11:45 12/10/2021 PM EDT 11:45 PM EDT Iker Cuevas MD POINT OF CARE TEST ORDERABLE S Performing Organization Address City/[facility]/[place] [address] (ABNORMAL) POCT Glucose (12/10/2021 7:54 PM EDT) athologist Signature POC Glucose 225 (H) 65 - [address] [facility] mg/dL [facility] Comment: Supplemental ranges: <140 mg/dL before meals <180 mg/dL all other times of the day Specimen Anatomical Collection Method Collection Time Receive d Time (Source) Location / / Volume Laterality Blood 12/10/2021 7:54 PM 2 7:54 EDT PM EDT Iker Cuevas MD POINT OF CARE TEST ORDERABLE S Performing Organization Address City/[facility]/[place] [address] Potassium (12/10/2021 7:46 PM EDT) athologist Signature Potassium 4.2 3.5 - 5.[address] [facility] mmol/L [facility] Comment: Please note: ??Patients with WBC [...] Cuevas MD CHEMISTRY ORDERABLES Performing Organization Address City/[facility]/ZIP [place] [address] (ABNORMAL) Basic Metabolic Panel (non-fasting) (12/10/2021 6:12 PM EDT) athologist Signature Glucose Lvl 246 (H) 65 - 199 [facility] mg/dL [facility] Comment: Diabetes: >=200 mg/dL plus symp toms BUN 50 (H) 10 - 20 mg/dL [facility] LAB[facility]ORY Creatinine 1.39 0.80 - [...] 107 mmol/L [facility] CO2 22 22 - 31 mmol/L [facility] [...] Organization Address City/State/[place] [address] POCT Glucose (12/10/2021 4:59 PM EDT) P athologist Signature POC Glucose 158 65 - 199 [facility] mg/dL [facility] Comment: Supplemental ranges: <140 mg/dL before meals <180 mg/dL all other times of the day Specimen Anatomical Collection Method Collection Time Receive d Time (Source) Location / / Volume Laterality Blood 12/10/2021 4:59 PM 2 4:59 EDT PM EDT Iker Cuevas MD POINT OF CARE TEST ORDERABLE S Performing Organization Address City/[facility]/[place] [address] (ABNORMAL) POCT Glucose (12/10/2021 12:43 PM EDT) P athologist Signature POC Glucose 241 (H) 65 - 199 [facility] mg/dL [facility] Comment: Supplemental ranges: <140 mg/dL before meals <180 mg/dL all other times of the day Specimen Anatomical Collection Method Collection Time Receive d Time (Source) Location / / Volume Laterality Blood 12/10/2021 12:43 12/10/2021 PM EDT 12:43 PM EDT Iker Cuevas MD POINT OF CARE TEST ORDERABLE S Performing Organization Address City/[facility]/ZIP Code Phon e Number [address] EKG 12 Lead (12/10/2021 11:17 AM EDT) Component Value Ref Range Test Analysis Performed Pathologis t Method Time At Signature Ventricular rate 62 BPM MUSE SYSTEM Atrial Rate 62 BPM MUSE SYSTEM P-R Interval 142 ms MUSE SYSTEM QRS Duration 100 ms MUSE SYSTEM Q-T Interval 434 ms MUSE SYSTEM QTC Calculated 440 ms MUSE SYSTEM (Bezet) Calculated P [place] 34 degrees MUSE SYSTEM Calculated R [place] -39 degrees MUSE SYSTEM Calculated T [place] 92 degrees MUSE SYSTEM INTERPRETATION Normal sinus [...] SYSTEM - 12/10/2021 12:04 PM E DT ?[facility] ? Cardiac Cathete rization/Intervention Report ? Patient Name: Don Fatima ? Procedure Date: 12/10/2021 ? A #: [id number] ? Primary Physician: Vitaliy Nobles ? Case #: [id number] ? File Name: [id number] ? Catheterization Order Number: [id number] ? [facility] ? Final Report [address], [place] ? Patient Name: ? Don E. Stewa rt ? ID#: ?[id number] ? : ?1945 ? Procedure Date: ? [...] ?designated as ASA Class III. Th e [facility] clinical frailty scale is 5: [...] quality assurance qa lab technician visit is ACS great er [...] ?3.75 guiding catheter and a 3.5 Fr [place] [facility] [place] 20 Mhz using Manual ?pullback. ??Imaging was [...] ?3.75 guiding catheter and a 3.5 Fr [place] [facility] 20 Mhz using Manual ?pullback. ??Imaging was [...] ?modification of this regimen. C onsult [facility] Interventional Cardiology for ?questions. ?The 1 year [...] Procedure Note Vitaliy Nobles MD - 01/14/2022 [facility] Cardiac Catheterization/Intervention Re port Patient Name: Don Fatima Procedure Date: 12/10/2021 A #: [id number] Primary Physician: Vitaliy Nobles Case #: [id number] File Name: [id number] Catheterization Order Number: [id number] [facility] Final Report [place], [place] Patient Name: Don Fatima ID#: [...] e was Urgent. The indication for the quality assurance qa lab technician visit is ACS greater than [...] and a 3.5 Fr [place] [facility] Elim [place] 20 Mhz using Manual pullback. Imaging was [...] and a 3.5 Fr [place] [facility] Elim [place] 20 Mhz using Manual pullback. Imaging was [...] require modification of this regimen. Consult D [facility] Interventional Cardiology for questions. The 1 year [...] 262 (H) 65 - [address] [facility] mg/dL [facility] Comment: Supplemental ranges: <140 mg/dL before meals <180 mg/dL all other times of the day Specimen Anatomical Collection Method Collection Time Receive d Time (Source) Location / / Volume Laterality Blood 12/10/2021 10:30 12/10/2021 AM EDT 10:30 AM EDT Iker Cuevas MD POINT OF CARE TEST ORDERABLE S Performing Organization Address City/State/[place] [address] (ABNORMAL) POCT Glucose (12/10/2021 9:48 AM EDT) athologist Signature POC Glucose 279 (H) 65 - [address] [facility] mg/dL [facility] Comment: Supplemental ranges: <140 mg/dL before meals <180 mg/dL all other times of the day Specimen Anatomical Collection Method Collection Time Receive d Time (Source) Location / / Volume Laterality Blood 12/10/2021 9:48 AM 2 9:48 EDT AM EDT Iker Cuevas MD POINT OF CARE TEST ORDERABLE S Performing Organization Address City/[facility]/[place] [address] (ABNORMAL) POCT Glucose (12/10/2021 9:07 AM EDT) athologist Signature POC Glucose 268 (H) 65 - [address] [facility] mg/dL [facility] Comment: Supplemental ranges: <140 mg/dL before meals <180 mg/dL all other times of the day Specimen Anatomical Collection Method Collection Time Receive d Time (Source) Location / / Volume Laterality Blood 12/10/2021 9:07 AM 2 9:07 EDT AM EDT Iker Cuevas MD POINT OF CARE TEST ORDERABLE S Performing Organization Address City/State/[place] [address] (ABNORMAL) Point of Care Blood Gas Historical (12/10/2021 9:04 AM EDT) Patholo gist Method Time Signature POC pH 7.40 7.35 - [facility] 7.45 [facility] POC PCO2 40 35 - 45 [facility] mmHg [facility] POC PO2 63 (L) 85 - 104 [facility] LABORATORY POC Base Excess 0.0 -3.0 - 3.0 [facility] K mmol/L [facility] POC HCO3 24.8 20.0 - [facility] 26.0 [facility] POC Sodium 143 135 - 145 [facility] mmol/L [facility] POC Potassium 3.7 3.5 - 5.0 [facility] mmol/L [facility] POC Ionized Ca 1.07 (L) 1.15 - [facility] 1.33 [facility] mmolL [facility] LABORATORY POC Hematocrit 30.0 (L) 40.0 - [facility] 51.0 % [facility] POC Calc Hgb 10.2 (L) 13.7 - [facility] 17.5 g/dL [facility] Comment: The calculation of hemoglobin f rom hematocrit assumes a normal MCHC. POC Bgas Loc CC LAB [facility] LABORATORY Specimen Anatomical Collection Method Collection Time Receive d Time (Source) Location / / Volume Laterality Blood 12/10/2021 9:04 AM 2 EDT 12:00 PM EDT Ifeanyi Truong MD CHEMISTRY ORDERABLES Performing Organization Address City/State/[place] [address] (ABNORMAL) POCT Glucose (12/10/2021 7:19 AM EDT) P athologist Signature POC Glucose 274 (H) 65 - 199 [facility] mg/dL [facility] Comment: Supplemental ranges: <140 mg/dL before meals <180 mg/dL all other times of the day Specimen Anatomical Collection Method Collection Time Receive d Time (Source) Location / / Volume Laterality Blood 12/10/2021 7:19 AM 2 7:19 EDT AM EDT Iker Cuevas MD POINT OF CARE TEST ORDERABLE S Performing Organization Address City/[facility]/[place] [address] Heparin (unfractionated) Level (12/10/2021 4:25 AM EDT) P athologist Signature Heparin UFH 0.69 IU/mL [facility] LABORATORY Comment: Heparin (anti-Xa) [...] Cuevas MD HEMATOLOGY ORDERABLES Performing Organization Address City/[facility]/ZIP Code Phon e Number [address] (ABNORMAL) Differential, Automated (12/10/2021 4:25 AM EDT) Patholo gist Method Time Signature Neutrophils % 79.8 % [facility] LABORATORY Neutr Abs (ANC) 7.47 (H) 1.70 - [facility] 6.10 [facility] x10(3)/[facility] LABORATORY Lymphocytes % 10.6 % [facility] LABORATORY Lymphocytes Abs 1.0 0.9 - 3.2 [facility] x10(3)/[facility] LABORATORY Monocytes % 8.4 % [facility] LABORATORY Monocyte Abs 0.8 0.3 - 0.9 [facility] x10(3)/[facility] LABORATORY Eosinophils % 0.6 % [facility] LABORATORY Eosinophils Abs 0.1 0.0 - 0.4 [facility] x10(3)/[facility] LABORATORY Basophils % 0.2 % [facility] LABORATORY Basophils Abs 0.0 0.0 - 0.1 [facility] x10(3)/[facility] LABORATORY Immature Gran % 0.40 % BAR[facility] [...] Melisa Gran Abs 0.04 0.00 - 0.04 x10(3)/[facility] LABORATORY Specimen Anatomical Collection Method Collection Time Receive d Time (Source) Location / / Volume Laterality Blood 12/10/2021 4:25 AM 4:34 EDT AM EDT Resulting Agency Comment Spec In Lab Morgan BROWN HEMATOLOGY ORDERABLES Performing Organization Address City/State/[place] [address] (ABNORMAL) Hemogram (12/10/2021 4:25 AM EDT) Analysis Performed At Patho logist Time Signature WBC 9.4 4.0 - 9.5 [facility] x10(3)/[facility] LABORATORY RBC 3.81 (L) 4.58 - [facility] 5.54 [facility] x10(6)/[facility] LABORATORY Hemoglobin 11.1 (L) 13.7 - [facility] 16.5 g/dL [facility] Hematocrit 34.0 (L) 40.5 - [facility] 48.5 % [facility] MCV 89.2 82.9 - [facility] 93.1 fL [facility] MCH 29.1 27.5 - [facility] 32.1 pg [facility] MCHC 32.6 32.0 - [facility] 35.7 g/dL [facility] Platelets 183 145 - 357 [facility] x10(3)/[facility] LABORATORY RDWSD 49.9 (H) 36.0 - [facility] 45.0 [facility] LABORATORY RDWCV 15.2 (H) 11.4 - [facility] 13.8 % [facility] MPV 9.8 7.6 - 12.9 [facility] LABORATORY nRBC % Auto 0.0 % [facility] LABORATORY nRBC Abs Auto 0.000 0.000 - [facility] 0.000 [facility] x10(3)/[facility] LABORATORY Specimen Anatomical Collection Method Collection Time Receive d Time (Source) Location / / Volume Laterality Blood 12/10/2021 4:25 AM 2 4:34 EDT AM EDT Resulting Agency Comment Spec In Lab Morgan BROWN HEMATOLOGY ORDERABLES Performing Organization Address City/[facility]/[place] [address] (ABNORMAL) Prothrombin Time (12/10/2021 4:25 AM EDT) P athologist Signature PT 20.0 (H) 9.4 - 12.5 [facility] LABORATORY INR 1.7 [facility] LABORATORY Comment: An INR [...] Cuevas MD HEMATOLOGY ORDERABLES Performing Organization Address City/[facility]/[place] [address] (ABNORMAL) BMP w/fasting Glucose (12/10/2021 4:25 AM EDT) athologist Signature Glucose 210 (H) 65 - 99 [facility] Fasting mg/dL [facility] Comment: ?Fasting* Glucose Interpretive C riteria [...] of Diabetes Mellitus, Position Statement from the [place] [employer]. ??Diabete s Care, Volume 33, Supplement 1, Jul 2009 BUN 54 (H) 10 - 20 mg/dL [facility] LABORATORY Creatinine 1.52 (H) 0.80 [...] 15 mmol/L [facility] LABORATORY Calcium 8.0 (L) 8.5 - 10.5 mg/dL [facility] LABORATORY Estimated GFR 44 (L) >=60 mL/min/1.73 m?? [facility] [...] Cuevas MD CHEMISTRY ORDERABLES Performing Organization Address City/[facility]/[place] [address] Magnesium (12/10/2021 4:25 AM EDT) P athologist Signature Magnesium 0.95 0.69 - 1.[address] [facility] mmol/L [facility] Specimen Anatomical Collection Method Collection Time Receive d Time (Source) Location / / Volume Laterality Blood 12/10/2021 4:25 AM 2 4:34 EDT AM EDT Resulting Agency Comment Spec In Lab Iker Cuevas MD CHEMISTRY ORDERABLES Performing Organization Address City/[facility]/[place] [address] POCT Glucose (12/10/2021 1:58 AM EDT) P athologist Signature POC Glucose 164 65 - [address] [facility] mg/dL [facility] Comment: Supplemental ranges: <140 mg/dL before meals <180 mg/dL all other times of the day Specimen Anatomical Collection Method Collection Time Receive d Time (Source) Location / / Volume Laterality Blood 12/10/2021 1:58 AM 2 1:58 EDT AM EDT Iker Cuevas MD POINT OF CARE TEST ORDERABLE S Performing Organization Address City/[facility] Hospital/ZIP Code Phon e [place] [facility] [place] [address] (ABNORMAL) POCT Glucose (12/09/2021 9:02 PM EDT) athologist Signature POC Glucose 313 (H) 65 - 199 [facility] mg/dL [facility] Comment: Supplemental ranges: <140 mg/dL before meals <180 mg/dL all other times of the day Specimen Anatomical Collection Method Collection Time Receive d Time (Source) Location / / Volume Laterality Blood 12/09/2021 9:02 PM 2 9:02 EDT PM EDT Iker Cuevas MD POINT OF CARE TEST ORDERABLE S Performing Organization Address City/State/[place] [address] Heparin (unfractionated) Level (12/09/2021 7:30 PM EDT) athologist Signature Heparin UFH 0.48 IU/mL [facility] LABORATORY Comment: Heparin (anti-Xa) [...] Organization Address City/State/[place] [address] (ABNORMAL) Basic Metabolic Panel (non-fasting) (12/09/2021 7:30 PM EDT) P athologist Signature Glucose Lvl 372 (H) 65 - 199 [facility] mg/dL [facility] Comment: Diabetes: >=200 mg/dL plus symp toms BUN 56 (H) 10 - 20 mg/dL [facility]ORATORY Creatinine 1.75 (H) 0.80 [...] 107 mmol/L [facility] CO2 22 22 - 31 mmol/L [facility] Anion Gap 14 5 - 15 mmol/L [facility] Calcium 8.1 (L) 8.5 - 10.5 mg/dL [facility] LABORATORY Estimated GFR 37 (L) >=60 mL/min/1.73 m?? [facility] [...] Cuevas MD CHEMISTRY ORDERABLES Performing Organization Address City/[facility]/[place] [address] (ABNORMAL) POCT Glucose (12/09/2021 6:34 PM EDT) athologist Signature POC Glucose 408 (H) 65 - 199 [facility] mg/dL [facility] Comment: Supplemental ranges: <140 mg/dL before meals <180 mg/dL all other times of the day Specimen Anatomical Collection Method Collection Time Receive d Time (Source) Location / / Volume Laterality Blood 12/09/2021 6:34 PM 2 6:34 EDT PM EDT Iker Cuevas MD POINT OF CARE TEST ORDERABLE S Performing Organization Address City/[facility]/[place] [address] (ABNORMAL) POCT Glucose (12/09/2021 6:32 PM EDT) athologist Signature POC Glucose 356 (H) 65 - 199 [facility] mg/dL [facility] Comment: Supplemental ranges: <140 mg/dL before meals <180 mg/dL all other times of the day Specimen Anatomical Collection Method Collection Time Receive d Time (Source) Location / / Volume Laterality Blood 12/09/2021 6:32 PM 2 6:32 EDT PM EDT Iker Cuevas MD POINT OF CARE TEST ORDERABLE S Performing Organization Address City/[facility]/[place] [address] (ABNORMAL) POCT Glucose (12/09/2021 4:19 PM EDT) athologist Signature POC Glucose 347 (H) 65 - 199 [facility] mg/dL [facility] Comment: Supplemental ranges: <140 mg/dL before meals <180 mg/dL all other times of the day Specimen Anatomical Collection Method Collection Time Receive d Time (Source) Location / / Volume Laterality Blood 12/09/2021 4:19 PM 2 4:19 EDT PM EDT Iker Cuevas MD POINT OF CARE TEST ORDERABLE S Performing Organization Address City/State/[place] [address] Heparin (unfractionated) Level (12/09/2021 1:29 PM EDT) athologist Signature Heparin UFH 0.42 IU/mL [facility] LABORATORY Comment: Heparin (anti-Xa) [...] Cuevas MD HEMATOLOGY ORDERABLES Performing Organization Address City/[facility]/[place] [address] (ABNORMAL) POCT Glucose (12/09/2021 12:02 PM EDT) athologist Signature POC Glucose 235 (H) 65 - 199 [facility] mg/dL [facility] Comment: Supplemental ranges: <140 mg/dL before meals <180 mg/dL all other times of the day Specimen Anatomical Collection Method Collection Time Receive d Time (Source) Location / / Volume Laterality Blood 12/09/2021 12:02 12/09/2021 PM EDT 12:02 PM EDT Iker Cuevas MD POINT OF CARE TEST ORDERABLE S Performing Organization Address City/State/[place] [address] (ABNORMAL) POCT Glucose (12/09/2021 9:44 AM EDT) P athologist Signature POC Glucose 214 (H) 65 - [address] [facility] mg/dL [facility] Comment: Supplemental ranges: <140 mg/dL before meals <180 mg/dL all other times of the day Specimen Anatomical Collection Method Collection Time Receive d Time (Source) Location / / Volume Laterality Blood 12/09/2021 9:44 AM 2 9:44 EDT AM EDT Iker Cuevas MD POINT OF CARE TEST ORDERABLE S Performing Organization Address City/State/ZIP Code Phon e Number [place] [phone] [facility] [address] Drive EKG 12 Lead (12/09/2021 7:57 AM EDT) Component Value Ref Range Test Analysis Performed Pathologis t Method Time At Signature Ventricular rate 101 BPM MUSE SYSTEM Atrial Rate 101 BPM MUSE SYSTEM P-R Interval 150 ms MUSE SYSTEM QRS Duration 112 ms MUSE SYSTEM Q-T Interval 364 ms MUSE SYSTEM QTC Calculated 471 ms MUSE SYSTEM (Bezet) Calculated P [place] 59 degrees MUSE SYSTEM Calculated R [place] -42 degrees MUSE SYSTEM Calculated T [place] 102 degrees MUSE SYSTEM INTERPRETATION Sinus tachycardia Occasional Premature ventricular com plexes MUSE SYSTEM Left axis deviation 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) Abnormal ECG When compared with ECG of 08-DEC-2021 16:40, Premature ventricular complexes are now Present Confirmed by MD Fernandez Danette ([id number]) on 12/10/2021 4:55:06 PM Specimen Anatomical Collection Method Collection Time Receive d Time (Source) Location / / Volume Laterality 12/09/2021 7:57 AM 2 4:55 EDT PM EDT Iker Cuevas MD ECG ORDERABLES Performing Organization Address City/State/ZIP Code Phon e Number MUSE SYSTEM (ABNORMAL) POCT Glucose (12/09/2021 7:28 AM EDT) P athologist Signature POC Glucose 263 (H) 65 - [address] [facility] mg/dL [facility] Comment: Supplemental ranges: <140 mg/dL before meals <180 mg/dL all other times of the day Specimen Anatomical Collection Method Collection Time Receive d Time (Source) Location / / Volume Laterality Blood 12/09/2021 7:28 AM 2 7:28 EDT AM EDT Iker Cuevas MD POINT OF CARE TEST ORDERABLE S Performing Organization Address City/State/[place] [address] (ABNORMAL) Hemoglobin A1c (12/09/2021 [...] Mellitus, Diabetes Care 2013; 36: Suppl. 1, S67-85 Est Avg Gluc See note mg/dL [facility] LABOR[facility]ORY Comment: Estimated Average Glucose not [...] into estimated average glucose values. ??Diabetes Care 2008:31(8):3943-5326. Specimen Anatomical Collection Method Collection Time Receive d Time (Source) Location / / Volume Laterality Blood Venous Draw / 12/09/2021 6:18 AM 12/10/19 22 Unknown EDT 12:24 PM EDT Resulting Agency Comment Spec In Lab Migdalia BROWN CHEMISTRY ORDERABLES Performing Organization Address [facility] [place] [address] (ABNORMAL) Prothrombin Time (12/09/2021 6:18 AM EDT) P athologist Signature PT 26.6 (H) 9.4 - 12.5 [facility] LABORATORY INR 2.3 [facility] LABORATORY Comment: An INR [...] Migdalia BROWN HEMATOLOGY ORDERABLES Performing Organization Address [facility] [address] Heparin (unfractionated) Level (12/09/2021 6:18 AM EDT) P athologist Signature Heparin UFH 0.24 IU/mL [facility] LABORATORY Comment: Heparin (anti-Xa) [...] Address City/State/ZIP Code Phon e Number [place] [phone] (ABNORMAL) Differential, Automated (12/09/2021 6:18 AM EDT) [facility] gist Method Time Signature Neutrophils % 91.5 % [facility] LABORATORY Neutr Abs (ANC) 15.78 (H) 1.70 - [facility] 6.10 [facility] x10(3)/[facility] L LABORATORY Lymphocytes % 2.9 % [facility] LABORATORY Lymphocytes Abs 0.5 (L) 0.9 - 3.2 [facility] x10(3)/[facility] LABORATORY Monocytes % 4.9 % [facility] LABORATORY Monocyte Abs 0.8 0.3 - 0.9 [facility] x10(3)/[facility] LABORATORY Eosinophils % 0.0 % [facility] LABORATORY Eosinophils Abs 0.0 0.0 - 0.4 [facility] x10(3)/[facility] LABORATORY Basophils % 0.2 % [facility] LABORATORY Basophils Abs 0.0 0.0 - 0.1 [facility] x10(3)/[facility] LABORATORY Immature Gran % 0.50 % BAR[facility] [...] Gran Abs 0.09 (H) 0.00 - 0.04 x10(3)/[facility] LABORATORY Specimen Anatomical Collection Method Collection Time Receive d Time (Source) Location / / Volume Laterality Blood 12/09/2021 6:18 AM 6:33 EDT AM EDT Resulting Agency Comment Spec In Lab Morgan BROWN HEMATOLOGY ORDERABLES Performing Organization Address City/State/ZIP Code Phon e Number [place] [phone] Drive (ABNORMAL) Hemogram (12/09/2021 6:18 AM EDT) Analysis Performed At Patho logist Time Signature WBC 17.2 (H) 4.0 - 9.5 [facility] x10(3)/[facility] LABORATORY RBC 4.32 (L) 4.58 - [facility] RYAN 5.54 [facility] x10(6)/[facility] LABORATORY Hemoglobin 12.6 (L) 13.7 - [facility] 16.5 g/dL [facility] Hematocrit 38.9 (L) 40.5 - [facility] 48.5 % [facility] MCV 90.0 82.9 - [facility] 93.1 [facility] LABORATORY MCH 29.2 27.5 - [employer] 32.1 pg [facility] MCHC 32.4 32.0 - [facility] 35.7 g/dL [facility] Platelets 193 145 - 357 [facility] x10(3)/[facility] LABORATORY RDWSD 50.4 (H) 36.0 - [facility] R[facility]AN 45.0 [facility] RDWCV 15.2 (H) 11.4 - [facility] R[facility] 13.8 % [facility] MPV 9.5 7.6 - 12.9 [facility] LABORATORY nRBC % Auto 0.0 % [facility] LABORATORY nRBC Abs Auto 0.000 0.000 - [facility] 0.000 [facility] x10(3)/[facility] LABORATORY Specimen Anatomical Collection Method Collection Time Receive d Time (Source) Location / / Volume Laterality Blood 12/09/2021 6:18 AM 6:33 EDT AM EDT Resulting Agency Comment Spec In Lab Morgan BROWN HEMATOLOGY ORDERABLES Performing Organization Address City/State/[place] [address] Lipid Panel (Reflex Direct LDL) (12/09/2021 6:18 AM EDT) athologist Signature Chol, Total 105 mg/dL [facility] LABOR[facility]ORY Comment: Lower Risk: <200 mg/dL Average Risk: 200-239 mg/dL Higher Risk: >ev=926 mg/dL Triglycerides 133 mg/dL [facility] LABORATORY Comment: Average Risk/Lower Risk: <150 mg/dL Borderline High Risk: 150-199 mg/dL High Risk: 200-499 mg/dL Very High Risk: >rk=313 mg/dL HDL 42 mg/dL [facility] LAB[facility] Comment: Males: ?? Higher Risk: <40 mg/dL Females: ?? Higher Risk: <50 mg/dL LDL Cholesterol 36 mg/dL [facility] Comment: Lowest Risk: <100 mg/dL Lower Risk: 100-129 mg/dL Borderline High Risk: 130-159 mg/dL High Risk: 160-189 mg/dL Very High Risk: >ek=124 mg/dL Chol/HDL Ratio 2.5 ratio [facility] LAB[facility]ORY Lipid Interpretation See Note [facility] LABOR[facility]ORY Comment: Lipid management should be guided by a p atient? s ASCVD risk, goals and preferences. ACC/AHA Guidelines recommend high intens ity statin if clinical ASCVD or LDL greater than or equal to 190 mg/dL. http://Fundbaseurl.com/WRV-ULZ-Kegsjmamo Adults aged 40-75 with LDL 70-189 mg/dL should have their 10 year ASCVD risk estimated with the ACC/AHA ASCVD risk es timator http://tools.acc.org/MZIUU-Imkm-Lptfxnak r/ Statin should be discussed if risk [...] Cuevas MD CHEMISTRY ORDERABLES Performing Organization Address City/[facility]/[place] [address] TSH (12/09/2021 6:18 AM EDT) P athologist Signature TSH 1.60 0.27 - 4.20 [facility] mcIU/mL [facility] Comment: Reference Interval (mcIU/mL): Females: ??First Trimester: 0.23-3.88 ??Second Trimester: 0.22-3.90 ??Third Trimester: 0.44-4.66 Specimen Anatomical Collection Method Collection Time Receive d Time (Source) Location / / Volume Laterality Blood 12/09/2021 6:18 AM 2 6:33 EDT AM EDT Resulting Agency Comment Spec In Lab Iker Cuevas MD CHEMISTRY ORDERABLES Performing Organization Address City/[facility]/[place] [address] Hepatic Function Panel (12/09/2021 6:18 AM EDT) P athologist Signature Total Protein 7.3 6.1 - 8.0 [facility] g/dL [facility] Albumin 4.2 3.2 - 5.2 [facility] g/dL [facility] AST 25 0 - 39 [facility] unit/L [facility] ALT 15 0 - [address] [facility] unit/L [facility] Alk Phos 75 40 - [address] [facility] unit/L [facility] Total 1.1 0.2 - 1.3 [facility] Bilirubin mg/dL [facility] Bili, Direct 0.2 0.0 - 0.[address] [facility] mg/dL [facility] Specimen Anatomical Collection Method Collection Time Receive d Time (Source) Location / / Volume Laterality Blood 12/09/2021 6:18 AM 6:33 EDT AM EDT Resulting Agency Comment Spec In Lab Iker Cuevas MD CHEMISTRY ORDERABLES Performing Organization Address City/State/[place] [address] (ABNORMAL) BMP w/fasting Glucose (12/09/2021 6:18 AM EDT) athologist Signature Glucose 235 (H) 65 - 99 [facility] Fasting mg/dL [facility] Comment: ?Fasting* Glucose Interpretive C riteria [...] of Diabetes Mellitus, Position Statement from the [place] [employer]. ??Diabete s Care, Volume 33, Supplement 1, Jul 2009 BUN 49 (H) 10 - 20 mg/dL [facility] LABORATORY Creatinine 1.33 0.80 - 1.50 mg/dL [facility] Sodium 139 135 - 145 mmol/L [facility] K [facility] Potassium 4.2 3.5 - 5.0 mmol/L [...] Estimated GFR 52 (L) >=60 mL/min/1.73 m?? [facility] [...] City/State/[place] [address] Magnesium (12/09/2021 6:18 AM EDT) P athologist Signature Magnesium 0.81 0.69 - 1.07 [facility] mmol/L [facility] Specimen Anatomical Collection Method Collection Time Receive d Time (Source) Location / / Volume Laterality Blood 12/09/2021 6:18 AM 2 6:33 EDT AM EDT Resulting Agency Comment Spec In Lab Iker Cuevas MD CHEMISTRY ORDERABLES Performing Organization Address City/[facility]/[place] [address] (ABNORMAL) Troponin (12/09/2021 6:18 AM EDT) P athologist Signature Troponin-T 1.13 (H) 0.00 - [facility] 0.00 ng/mL [facility] Comment: The 99th percentile for Troponin [...] additional sample may be indicated. Reference: Third Mott Definition of Myocardial Infarction. Journal of the [employer] College [employer] 2012;60:1581-98 Specimen Anatomical Collection Method Collection Time Receive d Time (Source) Location / / Volume Laterality Blood 12/09/2021 6:18 AM 2 6:33 EDT AM EDT Resulting Agency Comment Spec In Lab Iker Cuevas MD CHEMISTRY ORDERABLES Performing Organization Address City/[facility]/[place] [address] XR Chest One View [...] who have questions please contact the health palliative care nurse that requested your imaging first. [...] ho have questions please contact the health palliative care nurse that requested your imaging first. Amber Sanches MD IMG DX ORDERABLES (ABNORMAL) BLOOD GAS 2 ARTERIAL (12/09/2021 5:14 AM EDT) Analysis Performed At Patho logist Time Signature pH Art 7.43 7.35 - [facility] 7.45 [facility] pCO2 Art 36 35 - 45 [facility] mmHg [facility] pO2 Art 67 (L) 85 - 104 [facility] LABORATORY HCO3 Art 23.4 20.0 - [facility] 26.0 [facility] mmol/L [facility] LABORATORY BE Art -0.9 -3.0 - 3.0 [facility] mmol/L [facility] Hgb Blood Gas 13.2 (L) 13.7 - [facility] 16.5 g/dL [facility] O2HB Art 91.3 (L) 94.0 - [facility] 97.0 % [facility] COHB Art 0.4 % [facility] LABORATORY Comment: Nonsmokers: 0.5-1.5% COHB Smokers: Variable, but usually less than 10% Toxic: 20-30% COHB Lethal: Greater than 60% COHB METHB Art 0.4 <=1.5 % [facility] LABORATORY Na Whole Blood 138 135 - 145 mmol/L [facility] K Whole Blood 4.1 3.5 - 5.0 mmol/L [facility] LABOR[facility]ORY Comment: Please note: Patients with WBC >100,000 may have falsely elevated Potassium levels. Contact the Clinical Chemistry L aboratory if there are any questions. ICa Whole Blood 1.09 (L) 1.15 - 1.33 mmol/L [facility] PF Ratio Art 191 [facility] LABOR[facility]ORY Specimen Anatomical Collection Method Collection Time Receive d Time (Source) Location / / Volume Laterality Blood 12/09/2021 5:14 AM 2 5:14 EDT AM EDT Iker Cuevas MD CHEMISTRY ORDERABLES Performing Organization Address City/[facility]/[place] [address] POCT Glucose (12/09/2021 4:46 AM EDT) athologist Signature POC Glucose 198 65 - [address] [facility] mg/dL [facility] Comment: Supplemental ranges: <140 mg/dL before meals <180 mg/dL all other times of the day Specimen Anatomical Collection Method Collection Time Receive d Time (Source) Location / / Volume Laterality Blood 12/09/2021 4:46 AM 2 4:46 EDT AM EDT Iker Cuevas MD POINT OF CARE TEST ORDERABLE S Performing Organization Address City/[facility]/[place] [address] (ABNORMAL) POCT Glucose (12/09/2021 3:01 AM EDT) P athologist Signature POC Glucose 225 (H) 65 - [address] [facility] [address] [facility] mg/dL [facility] Comment: Supplemental ranges: <140 mg/dL before meals <180 mg/dL all other times of the day Specimen Anatomical Collection Method Collection Time Receive d Time (Source) Location / / Volume Laterality Blood 12/09/2021 3:01 AM 2 3:01 EDT AM EDT Iker Cuevas MD POINT OF CARE TEST ORDERABLE S Performing Organization Address City/[facility]/[place] [address] (ABNORMAL) POCT Glucose (12/08/2021 10:55 PM EDT) athologist Signature POC Glucose 327 (H) 65 - 199 [facility] mg/dL [facility] Comment: Supplemental ranges: <140 mg/dL before meals <180 mg/dL all other times of the day Specimen Anatomical Collection Method Collection Time Receive d Time (Source) Location / / Volume Laterality Blood 12/08/2021 10:55 12/08/2021 PM EDT 10:55 PM EDT Iker Cuevas MD POINT OF CARE TEST ORDERABLE S Performing Organization Address City/[facility]/[place] [address] Heparin (unfractionated) Level (12/08/2021 10:03 PM EDT) athologist Signature Heparin UFH 0.18 IU/mL [facility] LABORATORY Comment: Heparin (anti-Xa) [...] Organization Address City/State/[place] [address] (ABNORMAL) Troponin (12/08/2021 10:03 PM EDT) athologist Signature Troponin-T 0.92 (H) 0.00 - [facility] 0.00 ng/mL [facility] Comment: The 99th percentile for Troponin [...] additional sample may be indicated. Reference: Third Mott Definition of Myocardial Infarction. Journal of the [place] [employer] 2012;60:1581-98 Specimen Anatomical Collection Method Collection Time Receive d Time (Source) Location / / Volume Laterality Blood 12/08/2021 10:03 12/08/2021 PM EDT 10:31 PM EDT Resulting Agency Comment Spec In Lab Iker Cuevas MD CHEMISTRY ORDERABLES Performing Organization Address City/[facility]/[place] [address] (ABNORMAL) POCT Glucose (12/08/2021 8:22 PM EDT) athologist Signature POC Glucose 429 (H) 65 - 199 [facility] mg/dL [facility] Comment: Supplemental ranges: <140 mg/dL before meals <180 mg/dL all other times of the day Specimen Anatomical Collection Method Collection Time Receive d Time (Source) Location / / Volume Laterality Blood 12/08/2021 8:22 PM 2 8:22 EDT PM EDT Iker Cuevas MD POINT OF CARE TEST ORDERABLE S Performing Organization Address City/State/[place] [address] (ABNORMAL) POCT Glucose (12/08/2021 7:06 PM EDT) athologist Signature POC Glucose 442 (H) 65 - 199 [facility] mg/dL [facility] Comment: Supplemental ranges: <140 mg/dL before meals <180 mg/dL all other times of the day Specimen Anatomical Collection Method Collection Time Receive d Time (Source) Location / / Volume Laterality Blood 12/08/2021 7:06 PM 2 7:06 EDT PM EDT Iker Cuevas MD POINT OF CARE TEST ORDERABLE S Performing Organization Address City/[facility]/[place] [address] Magnesium (12/08/2021 6:02 PM EDT) athologist Signature Magnesium 0.86 0.69 - 1.07 [facility] mmol/L [facility] Specimen Anatomical Collection Method Collection Time Receive d Time (Source) Location / / Volume Laterality Blood 12/08/2021 6:02 PM 2 6:36 EDT PM EDT Resulting Agency Comment Spec In Lab Iker Cuevas MD CHEMISTRY ORDERABLES Performing Organization Address City/State/[place] [address] (ABNORMAL) Basic Metabolic Panel (non-fasting) (12/08/2021 6:02 PM EDT) athologist Signature Glucose Lvl 392 (H) 65 - 199 [facility] mg/dL [facility] Comment: Diabetes: >=200 mg/dL plus symp toms BUN 41 (H) 10 - 20 mg/dL [facility] LABORATORY Creatinine 1.44 0.80 - [...] 107 mmol/L [facility] LABORATORY CO2 20 (L) 22 - 31 mmol/L [facility] [...] Address City/State/ZIP Code Phon e Number [facility] [place] [address] (ABNORMAL) Differential, Automated (12/08/2021 6:02 PM EDT) [facility] Method Time Signature Neutrophils % 89.5 % [facility] LABORATORY Neutr Abs (ANC) 13.97 (H) 1.70 - [facility] 6.10 [facility] x10(3)/[facility] L LABORATORY Lymphocytes % 3.7 % [facility] LABORATORY Lymphocytes Abs 0.6 (L) 0.9 - 3.2 [facility] x10(3)/[facility] LABORATORY Monocytes % 6.1 % [facility] Monocyte Abs 1.0 (H) 0.3 - 0.9 [facility] x10(3)/[facility] LABORATORY Eosinophils % 0.0 % [facility] Eosinophils Abs 0.0 0.0 - 0.4 [facility] x10(3)/[facility] LABORATORY Basophils % 0.2 % [facility] Basophils Abs 0.0 0.0 - 0.1 [facility] x10(3)/[facility] LABORATORY Immature Gran % 0.50 % BARRE [...] City/State/[place] [address] (ABNORMAL) Hemogram (12/08/2021 6:02 PM EDT) Analysis Performed At Patho logist Time Signature WBC 15.6 (H) 4.0 - 9.[address] [facility] x10(3)/[facility] LABORATORY RBC 4.05 (L) 4.58 - [place]BARA RYAN 5.54 [facility] x10(6)/[facility] LABORATORY Hemoglobin 11.8 (L) 13.7 - [facility] 16.5 g/dL [facility] Hematocrit 35.8 (L) 40.5 - [facility] 48.5 % [facility] MCV 88.4 82.9 - [facility] 93.1 [facility] LABORATORY MCH 29.1 27.5 - [facility] 32.1 pg [facility] MCHC 33.0 32.0 - [facility] 35.7 g/dL [facility] Platelets 178 145 - 357 [facility] x10(3)/[facility] LABORATORY RDWSD 49.3 (H) 36.0 - [place] 45.0 [facility] LABORATORY RDWCV 15.1 (H) 11.4 - [facility] 13.8 % [facility] MPV 10.4 7.6 - 12.[address] [facility] LABORATORY nRBC % Auto 0.0 % [facility] nRBC Abs Auto 0.000 0.000 - [facility] 0.000 [facility] x10(3)/[facility] LABORATORY Specimen Anatomical Collection Method Collection Time Receive d Time (Source) Location / / Volume Laterality Blood 12/08/2021 6:02 PM 2 6:36 EDT PM EDT Resulting Agency Comment Spec In Lab Morgan BROWN HEMATOLOGY ORDERABLES Performing Organization Address City/State/[place] [address] (ABNORMAL) Troponin (12/08/2021 6:02 PM EDT) P athologist Signature Troponin-T 0.89 (H) 0.00 - [place] 0.00 ng/mL [facility] Comment: The 99th percentile for Troponin [...] additional sample may be indicated. Reference: Third Mott Definition of Myocardial Infarction. Journal of the [place] College [employer]iology 2012;60:1581-98 Specimen Anatomical Collection Method Collection Time Receive d Time (Source) Location / / Volume Laterality Blood 12/08/2021 6:02 PM 2 6:36 EDT PM EDT Resulting Agency Comment Spec In Lab Iker Cuevas MD CHEMISTRY ORDERABLES Performing Organization Address City/State/[place] [address] COVID-19 PCR (12/08/2021 5:00 PM EDT) [facility] Method Time Signature SARS-CoV-2 Not Detected Not Detected [facility] RNA PCR [facility] Comment: This result should [...] using the Simplexa COVID-19 Direct Assay by iCook.twjoi AlpineReplay as authorized by the FDA issued Emergency [...] Department of Pathology and Laboratory Medicine at [facility], certified under the Clinical Laboratory [...] clinical management guidance information are available at [facility] CDC Coronavirus Disease 2019 (COVID-19) webpage under Information fo r Healthcare Professionals (https://www.cdc.gov/coronavirus/2019-nc ov/hcp/index.html). Additional information about this and ot her EUA tests can be found in provider and patient fact sheets at the following FDA website: https://www.fda.gov/medical-devices/ndmtgkvrqts-wcyaumm-0517-mzgcp-96-vwvnjalys- fkw-yflvmsqofltkus-tsvqslg-devices/wwlqc-qlrinmgxxrn-siql SARS-CoV-2 Source FLIGHT TECHNICIAN Swab [facility] Specimen (Source) Anatomical Collection Method Collection Time Re ceived Time Location / / Volume Laterality Nasopharyngeal Swab 12/08/2021 5:00 12/08 PM EDT 6:03 PM EDT Comment: Symptoms->Surveillance Resulting Agency Comment Spec In Lab Iker Cuevas MD MICROBIOLOGY - GENERAL ORDER [place] Performing Organization Address City/State/[place] [address] EKG 12 Lead (12/08/2021 4:40 PM EDT) Component Value Ref Range Test Analysis Performed Pathologis t Method Time At Signature Ventricular rate 78 BPM MUSE SYSTEM Atrial Rate 78 BPM MUSE SYSTEM P-R Interval 152 ms MUSE SYSTEM QRS Duration 96 ms MUSE SYSTEM Q-T Interval 396 ms MUSE SYSTEM QTC Calculated 451 ms MUSE SYSTEM (Bezet) Calculated P [place] 44 degrees MUSE SYSTEM Calculated R [place] -31 degrees MUSE SYSTEM Calculated T [place] 124 degrees MUSE SYSTEM INTERPRETATION Normal sinus [...] Cuevas MD ECG ORDERABLES Performing Organization Address City/[facility]/ZIP Code Phon e Number MUSE SYSTEM (ABNORMAL) POCT Glucose (12/08/2021 4:34 PM EDT) P athologist Signature POC Glucose 400 (H) 65 - 199 [facility] mg/dL [facility] Comment: Supplemental ranges: <140 mg/dL before meals <180 mg/dL all other times of the day Specimen Anatomical Collection Method Collection Time Receive d Time (Source) Location / / Volume Laterality Blood 12/08/2021 4:34 PM 2 4:34 EDT PM EDT Iker Cuevas MD POINT OF CARE TEST ORDERABLE S Performing Organization Address City/[facility]/ZIP Code Phon e Number [place] [phone] HOSP[address] LAB[address]ORY [address] documented in this encounter [...] Given 11/23 10:30 AM EDT 300 mcg (BUMPER AND PAINTER) ONCE PRN, Starting on Wed12/10/21 at 1030, [...] 0735 (Given - Provider: Emma Garcia RN)0805 ([facility] Hold - Provider: [...] r epeat juice/soda, gel, dextrose or gluca maan once per episode. For persistent hypoglycemia, consider [...] (Intra-Procedure), Routine niCARdipine (Cardene) (100 mcg/mL) dilution (BUMPER AND PAINTER) (CANCELED) 1030 (Given - Provider: Vitaliy Nobles [...] episode. & nbsp; For persistent hypoglycemia, con drug abuse counselor longer-acting treatment for the duration of the [...]
Routine documented in this encounter Care Teams Pewter Caster Relationship Specialty Start Date End Date Lovely Vicente MD PCP - General 04/16/[address] [place] [address] documented as of this encounter
--- OUTSIDE RECORDS SUMMARY | 2022-03-23 09:35 | XMS_ITS | Encounter Summary ---
:1945 [place] [address] Care Team Providers Name Role Phone Lovely Vicente MD Primary Care Provider Encounter Details Date Type Department Care Team Description 03/20/2021 Telephone Neurology at [facility] Hugo Gaston MD [facility] [place] [address] [place] [address] [phone] (Wo rk) Social History Tobacco Use Types [...] - 03/20/2021 6:03 PM EDT Call from [facility]. 76 M with h/o DM. [...] Gaston MD Department of Neurology Pager # [phone] documented in this encounter Plan of Treatment Upcoming Encounters Date Type Specialty Care Team Description 03/26/2022 Office Visit Cardiology Vitaliy Nobles MD [facility] [address] [place], [place] [address] (Wo rk) 05/28/2022 Appointment Cardiology Zulma Dolan MD [facility] [address] [place], [place] [address] (Wo rk) 05/28/2022 Laboratory Appointment Lab 05/28/2022 Office Visit Cardiology Zulma Dolan MD [facility] [place] [address] Liz Poole PA [facility] [place] [address] 06/10/2022 Office Visit Dermatology Laura Scherer MD [facility] DR TEJA [address]MAT [place], [place] [address] (Wo rk) documented as of this encounter Visit Diagnoses Not on filedocumented in this encounter Care Teams Second Grade Teacher Relationship Specialty Start Date End Date Lovely Vicente MD PCP - General 04/16/[address] [place] [address] documented as of this encounter
--- OUTSIDE RECORDS SUMMARY | 2022-03-23 09:35 | XMS_ITS | Encounter Summary ---
:1945 [place] [address] Care Team Providers Name Role Phone Lovely Vicente MD Primary Care Provider Encounter Details Date Type Department Care Team Description 08/15/2018 Laboratory Appointment Lab 3L [facility] [place] [address] Social History Tobacco Use Types Packs/Day [...] [facility] [address] [place], [place] [address] (Wo rk) 05/28/2022 Appointment Cardiology Zulma Dolan MD [facility] [address] [address] (Wo rk) 05/28/2022 Laboratory Appointment Lab 05/28/2022 Office Visit Cardiology Zulma Dolan MD [facility] [place] [address] Liz Poole PA [facility] [place] [address] 06/10/2022 Office Visit Dermatology Laura Scherer MD [facility] ER DR [address]-DERMAT [place], [place] [address] (Wo rk) documented as of this encounter Procedures Procedure Name Priority Date/Time Associated Diagnosis Comme nts PROTHROMBIN TIME Routine 08/15/2018 8:04 AM Resul ts for this EST procedure are i n the results section. documented in this encounter Results (ABNORMAL) Prothrombin Time (08/15/2018 8:04 AM EST) P athologist Signature PT 24.0 (H) 9.4 - 12.5 [facility] LABORATORY INR 2.1 [facility] [...] Organization Address City/State/[place] [address] documented in this encounter Visit Diagnoses Not on filedocumented in this encounter Care Teams Attorney At Law Relationship Specialty Start Date End Date Lovely Vicente MD PCP - General 04/16/[address] [address] documented as of this encounter
--- OUTSIDE RECORDS SUMMARY | 2022-03-23 09:35 | XMS_ITS | Encounter Summary ---
:1945 Author Organization [facility] Address [facility] [place] [address] Care Team Providers Name Role Phone Lovely Vicente MD Primary Care Provider Encounter Details Date Type Department Care Team Description 01/02/2020 Office Visit Dermatology at [facility] ker[facility]; Abdelrahman HOOPER MD History of melanoma; [address] [facility] History of dysplastic nevus; [place] [address] Multiple benign nevi; [phone] [facility] Seborrheic yossi lancaster; RD-DERMATOLGY Skin exam for malignant neoplasm [place], [place] [address] Social History Tobacco Use Types [...] Vitaliy Nobles MD [facility] DR [place], [place] [address] (Wo rk) 05/28/2022 Appointment Cardiology Zulma Dolan MD [facility] [address] [place], [place] [address] (Wo rk) 05/28/2022 Laboratory Appointment Lab 05/28/2022 Office Visit Cardiology Zulma Dolan MD [facility] [place] [address] Liz Poole PA [facility] [place] [address] 06/10/2022 Office Visit Dermatology Laura Scherer MD [facility] DR TEJA GR[address]MAT [place], [place] [address] (Wo rk) documented as [...] skin documented in this encounter Care Teams Threading Machine Setter Relationship Specialty Start Date End Date Lovely Vicente MD PCP - General 04/16/[address] [place] [address] [address] [place] [address] documented as of this encounter
--- OUTSIDE RECORDS SUMMARY | 2022-03-23 09:35 | XMS_ITS | Encounter Summary ---
:1945 Author Organization [facility] [place] [address] Care Team Providers Name Role Phone Lovely Vicente MD Primary Care Provider Encounter Details Date Type Department Care Team Description 11/07/2019 TH Visit Cardiology at [facility] Danette Maxwell (arteriosclerotic heart disease); (TeleHealth) [facility] STACIE Gomes Cardiomyopathy, ischemic; Drive [facility] S/P CABG x 3; [place], [place] MARIA VICTORIA (obstructive sleep apnea) on CPAP [phone] CARDIOLOGY [phone] [place], [place] 0[address] Social History Tobacco Use Types [...] regurgitation present. 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 Post-op atrial fibrillation [id number] (CHF, HTN, DM, vascular disease, thromboembolism) Amiodarone discontinued Continue coumadin INR managed by PCP 7. PAD 08/06/2017: Right 1st, 2nd, 3rd toe amputation 08/11/2017: Left??femoral arterial access, RLE??angiogram, Balloon angioplasty of R PT with Eleazar 2.5 x 80 10/25/2017: right popliteal-pedal bypass at [facility] Continue Coumadin 8. Hypothyrodism S/p thyroidectomy [...] Nobles MD [facility] CARDIOLOGY [place], [place] [address] (Wo rk) 05/28/2022 Appointment Cardiology Zulma Dolan MD [facility] [place], [place] 0[address] (Wo rk) 05/28/2022 Laboratory Appointment Lab 05/28/2022 Office Visit Cardiology Zulma Dolan MD [facility] [place] [address] Liz Poole PA [facility] [place] [address] 06/10/2022 Office Visit Dermatology Laura Scherer MD [facility] DR TE[address]MAT [place], [place] [address] (Wo rk) documented as of this encounter Visit Diagnoses Diagnosis ASHD (arteriosclerotic heart disease) Coronary atherosclerosis of unspecified type of vessel, lower sioux or graft Cardiomyopathy, ischemic Other specified forms of chronic ischemi c heart disease S/P CABG x 3 Postsurgical aortocoronary bypass status MARIA VICTORIA (obstructive sleep apnea) on CPAP Obstructive sleep apnea (adult) (pediatr ic) documented in this encounter Care Teams Test Fixture Designer Relationship Specialty Start Date End Date Lovely Vicente MD PCP - General 04/16/[address] [place] [address] documented as of this encounter
--- OUTSIDE RECORDS SUMMARY | 2022-03-23 09:35 | XMS_ITS | Encounter Summary ---
:1945 Author Organization [facility] [place] [address] Care Team Providers Name Role Phone Lovely Vicente MD Primary Care Provider Encounter Details Date Type Department Care Team Description 08/15/2018 Laboratory Lab 3L Barbara Chronic systoli c heart failure; Appointment [facility] ASCVD (ar teriosclerotic cardiovascular disease) [place] [id number] Social History Tobacco Use Types Packs/Day Years [...] MD [facility] DR CARLYLE [place], [place] [address] (Wo rk) 05/28/2022 Appointment Cardiology Zulma Dolan MD [facility] [address] [place], [place] [address] (Wo rk) 05/28/2022 Laboratory Appointment Lab 05/28/2022 Office Visit Cardiology Zulma Dolan MD [facility] [place] [address] Liz Poole PA [facility] [place] [address] 06/10/2022 Office Visit Dermatology Laura Scherer MD [facility] ER DR LEZAMA RD-DERMAT [facility] [place], [place] [address] (Wo rk) documented as [...] Lvl 116 65 - 199 [facility] mg/dL [facility] Comment: Diabetes: >=200 mg/dL plus symp toms BUN 21 (H) 10 - 20 mg/dL [facility] Creatinine 1.08 0.80 [...] mmol/L [facility] Calcium 9.0 8.5 - 10.5 mg/dL [facility] Estimated GFR 68 >=60 mL/min/1.73 m?? [facility] Comment: The eGFR was calculated using the CKD-EP I equation. As with all creatinine based estimates of kidney function, eGFR values calculated with the CKD-EPI equation are not accurate in patients wi th acute kidney failure, extremes of body mass or the acutely ill. http://eBIZ.mobility/[facility] MIAMInkf eGFR 79 >=60 mL/min/1.73 m?? [facility] Comment: The eGFR was calculated using the CKD-EP I equation. As with all creatinine based estimates of kidney function, eGFR values calculated with the CKD-EPI equation are not accurate in patients wi th acute kidney failure, extremes of body mass or the acutely ill. http://eBIZ.mobility/[facility] MIAMInkf Specimen Anatomical Collection Method Collection Time Receive d Time (Source) Location / / Volume Laterality Blood specimen 08/15/2018 8:04 AM 019 8:20 (specimen) EST AM EST Resulting Agency Comment Spec In Lab Danette Maxwell APRN CHEMISTRY ORDERABLES Performing Organization Address City/State/ZIP [place] [address] Lipid Panel (08/15/2018 8:04 AM EST) athologist Signature Chol, Total 75 mg/dL [facility] Comment: Lower Risk: <200 mg/dL Average Risk: 200-239 mg/dL Higher Risk: >xp=537 mg/dL Triglycerides 185 mg/dL [facility] Comment: Average Risk/Lower Risk: <150 mg/dL Borderline High Risk: 150-199 mg/dL High Risk: 200-499 mg/dL Very High Risk: >lw=249 mg/dL HDL 32 mg/dL [facility] Comment: Males: ?? Higher Risk: <40 mg/dL Females: ?? HIgher Risk: <50 mg/dL LDL Cholesterol 6 mg/dL [facility] Comment: Lowest Risk: <100 mg/dL Lower Risk: 100-129 mg/dL Borderline High Risk: 130-159 mg/dL High Risk: 160-189 mg/dL Very High Risk: >rz=674 mg/dL Chol/HDL Ratio 2.3 ratio [facility] Lipid Interpretation See Note [facility] Comment: Lipid management should be guided by a p atient? s ASCVD risk, goals and preferences. ACC/AHA Guidelines recommend high intens ity statin if clinical ASCVD or LDL greater than or equal to 190 mg/dL. http://[employer].com/KFR-EXZ-Fznrjoyjr Adults aged 40-75 with LDL 70-189 mg/dL should have their 10 year ASCVD risk estimated with the ACC/AHA ASCVD risk es timator http://tools.acc.org/GKNEZ-Wior-Otzssmvg r/ Statin should be discussed if risk [...] Address City/State/ZIP [place] [address] (ABNORMAL) pro-Brain Natriuretic Peptide (08/15/2018 8:04 AM EST) athologist Signature ProBNP 1,797 (H) <=125 [facility] pg/mL [facility] Specimen Anatomical Collection Method Collection Time Receive d Time (Source) Location / / Volume Laterality Blood specimen 08/15/2018 8:04 AM 019 8:20 (specimen) EST AM EST Resulting Agency Comment Spec In Lab [place] Maxwell STACIE CHEMISTRY ORDERABLES Performing Organization Address City/State/ZIP Code Phon e Number [place] [phone] [address] LAB[address] documented in this encounter Visit Diagnoses Diagnosis Chronic systolic heart failure ASCVD (arteriosclerotic cardiovascular d isease) Unspecified cardiovascular disease documented in this encounter Care Teams Eap Clinician Relationship Specialty Start Date End Date Lovely Vicente MD PCP - General 04/16/[address] [place] [address] documented as of this encounter
--- OUTSIDE RECORDS SUMMARY | 2022-03-23 09:35 | XMS_ITS | Encounter Summary ---
:1945 Author Organization [facility] [place] [address] Care Team Providers Name Role Phone Lovely Vicente MD Primary Care Provider Encounter Details Date Type Department Care Team Description 12/07/2021 External Results Administration [facility] [place] [address] Social History Tobacco Use Types Packs/Day [...] Nobles MD [facility] DR [place], [place] [address] (Wo rk) 05/28/2022 Appointment Cardiology Zulma Dolan MD [facility] [address] [place] [address] (Wo rk) 05/28/2022 Laboratory Appointment Lab 05/28/2022 Office Visit Cardiology Zulma Dolan MD [facility] [place] [address] Liz Poole PA [facility] [place] [address] 06/10/2022 Office Visit Dermatology Laura Scherer MD [facility] ER DR [address]-DERMAT [place], [place] [address] (Wo rk) documented as of [...] on filedocumented in this encounter Care Teams Land Law Examiner Relationship Specialty Start Date End Date Lovely Vicente MD PCP - General 04/16/[address] [place] [address] documented as of this encounter
--- OUTSIDE RECORDS SUMMARY | 2022-03-23 09:35 | XMS_ITS | Encounter Summary ---
:1945 Author Organization [facility] [place] [address] Care Team Providers Name Role Phone Lovely Vicente MD Primary Care Provider Encounter Details Date Type Department Care Team Description 07/28/2019 Laboratory Appointment Lab 3L [facility] [place] [phone] Social History Tobacco Use Types Packs/Day Years [...] MD [facility] DR [place]LYLE [place], [place] [address] (Wo rk) 05/28/2022 Appointment Cardiology Zulma Dolan MD [facility] [address] [place], [place] [address] (Wo rk) 05/28/2022 Laboratory Appointment Lab 05/28/2022 Office Visit Cardiology Zulma Dolan MD [facility] [place] [address] Liz Poole PA [facility] [place] [address] 06/10/2022 Office Visit Dermatology Laura Scherer MD [facility] ER DR [address]-DERMAT [place]LOG[place], [place] 0[address] (Wo rk) documented as [...] City/State/[place] [address] (ABNORMAL) Basic Metabolic Panel (non-fasting) (07/28/2019 8:36 AM EST) athologist Signature Glucose Lvl 153 65 - 199 [facility] mg/dL [facility] LABOR[facility] Comment: Diabetes: >=200 mg/dL [...] of body mass or the acutely ill. http://[employer]/[facility] – MUSKOGEEnkf eGFR 81 >=60 mL/min/1.73 m?? [facility] Comment: The eGFR was calculated using the CKD-EP I equation. As with all creatinine based estimates of kidney function, eGFR values calculated with the CKD-EPI equation are not accurate in patients wi th acute kidney failure, extremes of body mass or the acutely ill. http://[employer]/DHMCnkf Specimen Anatomical Collection Method Collection Time Receive d Time (Source) Location / / Volume Laterality Blood specimen 07/28/2019 8:36 AM 020 8:46 (specimen) EST AM EST Resulting Agency Comment Spec In Lab Danette Maxwell APRN CHEMISTRY ORDERABLES Performing Organization Address City/State/[place] [address] documented in this encounter Visit Diagnoses Diagnosis Chronic systolic heart failure documented in this encounter Care Teams Protection Mgr Relationship Specialty Start Date End Date Lovely Vicente MD PCP - General 04/16/[address] [place] [address] documented as of this encounter
--- OUTSIDE RECORDS SUMMARY | 2022-03-23 09:35 | XMS_ITS | Encounter Summary ---
:1945 Author Organization [facility] [place] [address] Care Team Providers Name Role Phone Lovely Vicente MD Primary Care Provider Encounter Details Date Type Department Care Team Description 12/07/2021 Ancillary Procedure Radiology Library at [facility] Lovely murillo MD [facility] [id number] [place] [address] (Mikayla alcaraz) [phone] Social History Tobacco Use Types Packs/Day Years [...] Vitaliy Nobles MD [facility] ER [address] CARLYLE [place] [address] (Wo rk) 05/28/2022 Appointment Cardiology Zulma Dolan MD [facility] er Dr [place] [address] (Wo rk) 05/28/2022 Laboratory Appointment Lab 05/28/2022 Office Visit Cardiology Zulma Dolan MD [facility] [place] [address] Liz Poole PA [facility] [place] [address] 06/10/2022 Office Visit Dermatology Laura Scherer MD [facility] ER DR LEZ[address]-DERMAT [facility] [place] [address] (Wo rk) documented as [...] Address City/State/ZIP Code Phon e Number RAD [place], [place] documented in this encounter Visit Diagnoses Not on filedocumented in this encounter Care Teams Medical Dir Relationship Specialty Start Date End Date Lovely Vicente MD PCP - General 04/16/[address] [place] [address] documented as of this encounter
--- OUTSIDE RECORDS SUMMARY | 2022-03-23 09:35 | XMS_ITS | Encounter Summary ---
:1945 [place] [address] Care Team Providers Name Role Phone Lovely Vicente MD Primary Care Provider Encounter Details Date Type Department Care Team Description 04/16/2021 Office Visit Cardiology at [facility] Liz Poole, Chronic systolic heart [facility] [place] [address] Cardiology Dept [phone] [place], [place] [address] Social History Tobacco Use Types [...] was feeling good. 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 07/07/2019 - 07/21/2019 Zio Patch Technology Trainer The patient had a minimum heart rate [...] K+ 5.2 today 6. Post-op atrial fibrillation [id number] (CHF, HTN, DM, vascular disease, thromboembolism) [...] MD [facility] CARDIOLOGY [place], [place] 0[address] (Wo rk) 05/28/2022 Appointment Cardiology Zulma Dolan MD [facility] [place], [place] 0[address] (Wo rk) 05/28/2022 Laboratory Appointment Lab 05/28/2022 Office Visit Cardiology Zulma Dolan MD [facility] [place] [address] Liz Poole PA [facility] [place] [address] 06/10/2022 Office Visit Dermatology Laura Scherer MD [facility] DR TEJA GR-DERMAT OLOGY [place], [place] 0375 (Wo rk) documented as of this encounter Results (ABNORMAL) Basic Metabolic Panel (non-fasting) (04/16/2021 9:58 AM EDT) athologist Signature Glucose Lvl 77 65 - 199 [facility] mg/dL [facility] Comment: Diabetes: >=200 mg/dL plus symp toms BUN 23 (H) 10 - 20 mg/dL [facility] Creatinine 1.26 0.80 - 1.50 mg/dL [facility] [...] Organization Address City/State/[place] [address] (ABNORMAL) pro-Brain Natriuretic Peptide (04/16/2021 9:58 AM EDT) P athologist Signature ProBNP 523 (H) <=124 pg/mL [facility] Specimen Anatomical Collection Method Collection Time Receive d Time (Source) Location / / Volume Laterality Blood 04/16/2021 9:58 AM EDT 10:02 AM EDT Resulting Agency Comment Spec In Lab Zulma Plunkett MD CHEMISTRY ORDERABLES Performing Organization Address City/[facility]/[place] [address] documented in this encounter Visit Diagnoses Diagnosis Chronic systolic heart failure documented in this encounter Care Teams Boom Cat Operator Relationship Specialty Start Date End Date Lovely Vicente MD PCP - General 04/16/[address] [place] [address] documented as of this encounter
--- OUTSIDE RECORDS SUMMARY | 2022-03-23 09:35 | XMS_ITS | Encounter Summary ---
:1945 Author Organization [facility] [place] [address] Care Team Providers Name Role Phone Lovely Vicente MD Primary Care Provider Reason for Referral Diagnostic Test (Routine) - Closed Specialty Diagnoses / Procedures Referred By Contact Refer red To Contact Cardiology Diagnoses Chronic systolic heart failure Danette Maxwell APRN [facility] Non-Inv Card Lab Procedures Echocardiogram Transthoracic(Leb) [facility] [place] [address] [place] [address] Referral ID Status Reason Start Date Expiration Date Visits V isits Requested Authorized [id number] Closed Specialty 07/17/2019 09/14/2019 1 1 Service Requested Reason for Visit Diagnostic Test (Routine) - Closed Specialty Diagnoses / Procedures Referred By Contact Refer red To Contact Cardiology Diagnoses Chronic systolic heart failure Danette Maxwell APRN [facility] Non-Inv Card Lab Procedures Echocardiogram Transthoracic(Leb) [facility] [place] [address] [place] [address] Referral ID Status Reason Start Date Expiration Date Visits V isits Requested Authorized [id number] Closed Specialty 07/17/2019 09/14/2019 1 1 Service Requested Encounter Details Date Type Department Care Team Description 07/28/2019 Hospital Encounter Non-Invasive Chronic s ystolic heart [place] [address] Social History Tobacco Use Types Packs/Day [...] Nobles MD [facility] CARDIOLOGY [place], [place] 0[address] (Wo rk) 05/28/2022 Appointment Cardiology Zulma Dolan MD [facility] [place], [place] 0[address] (Wo rk) 05/28/2022 Laboratory Appointment Lab 05/28/2022 Office Visit Cardiology Zulma Dolan MD [facility] [place] [address] [facility] [place] [address] 06/10/2022 Office Visit Dermatology Laura Scherer MD [facility] DR TEJA GR-DERMAT OLOGY [place], [place] 0375 (Wo rk) documented as of this encounter Procedures Procedure Name Priority Date/Time Associated Comments Diagnosis ECHOCARDIOGRAM COMPLETE Routine 07/28/2019 8:19 AM Chronic sys tolic Results for this W CONTRAST EST heart failure procedure are in the results section. documented in this encounter Results ECHOCARDIOGRAM COMPLETE W CONTRAST (07/28/2019 8:19 AM EST) P athologist Signature EF 40 Xelerated SYSTEM Specimen (Source) Anatomical Location Collection Method / Collectio n Time Received Time / Laterality Volume 07/28/2019 Narrative [facility] - 07/28/2019 8:38 AM EST Procedure: ?Transthoracic Echocardiogram Patient: ?NATALYA Mccollum ? (Age): 1945(74y) Med Rec#: ? [id number] ?Sex: ?M ? Site Loc: ? [facility] ?Ht / Wt: ??172(cm)/81(kg) Pt. Loc: ?Echo Lab ?BSA: ?1.94 Study Date: ?? 07/28/2019 ?Pt. Type: Outpatient Tape: ? Referring: MARY ELLEN Reading: Ifeanyi Truong ([id number]) [employer] Installer: Fadumo Flanagan RDCS, FASE Diagnosis: *Chronic systolic [...] E-wave Vmax ?1 ?m/sec ? MV deceleration gszs111.5 ? msec ? MV A-wave Vmax ?1 [...] ? Pulmonic Valve/Qp:Qs ?Value ?Units (Range) ? AZ end-diastolic Vma1.1 ?m/sec ? Wall Motion: Segment Name ?Rest ? Base-Anteroseptal ?? Normal ? Base-Anterior ? Normal ? Base-Anterolateral ??Normal ? Base-Posterolateral Normal ? Base-Inferior ? Akinetic ? Base-Inferoseptal ?? Normal ? Mid-Anteroseptal ?Normal ? Mid-Anterior ?Hypokinetic ? Mid-Anterolateral ?? Normal ? Mid-Posterolateral ??Normal ? Mid-Inferior ?Hypokinetic ? Mid-Inferoseptal ?Normal ? Rewey-Septal ? Normal ? Rewey-Anterior ? Hypokinetic ? Rewey-Lateral ?Normal ? Rewey-Inferior ? Akinetic ? Rewey-Tip ?Hypokinetic ? This report has been electronically sign ed by: _ Ifeanyi Truong M.D. ? 07/28/2019 0 8:38:01 Images reviewed and interpretation verif ied [facility] Cardiac Ultrasound Laboratory Procedure Note Ifeanyi Truong MD - 07/28/2019Formatt ing of this note might be different from the original. Procedure: Transthoracic Echocardiogram Patient: NATALYA MCBRIDE(Age): [birth year]74y) Med Rec#: [id number] Sex: M Site Loc: [facility] Ht / Wt: 172(cm)/81(kg) Pt. Loc: Echo Lab BSA: 1.94 Study Date: 07/28/2019 Pt. Type: Outpati ent Tape: Referring: MARY ELLEN Reading: Ifeanyi Truong ([id number]) [employer] Installer: Fadumo Flanagan RDCS, FASE Diagnosis: *Chronic systolic [...] MV E-wave Vmax 1 m/sec MV deceleration yuzk488.5 msec MV A-wave Vmax 1 m/sec MV [...] 0.7 ratio Pulmonic Valve/Qp:Qs Value Units (Range) AZ end-diastolic Vma1.1 m/sec Wall Motion: Segment Name Rest Base-Anteroseptal Normal Base-Anterior Normal Base-Anterolateral Normal Base-Posterolateral Normal Base-Inferior Akinetic Base-Inferoseptal Normal Mid-Anteroseptal Normal Mid-Anterior Hypokinetic Mid-Anterolateral Normal Mid-Posterolateral Normal Mid-Inferior Hypokinetic Mid-Inferoseptal Normal Rewey-Septal Normal Rewey-Anterior Hypokinetic Rewey-Lateral Normal Rewey-Inferior Akinetic Rewey-Tip Hypokinetic This report has been electronically sign [...] Routine documented in this encounter Care Teams Team Manager Relationship Specialty Start Date End Date Lovely Vicente MD PCP - General 04/16/[address] [place] [address] documented as of this encounter
--- OUTSIDE RECORDS SUMMARY | 2022-03-23 09:35 | XMS_ITS | Encounter Summary ---
:1945 Author Organization [facility] [place] [address] Care Team Providers Name Role Phone Lovely Vicente MD Primary Care Provider Encounter Details Date Type Department Care Team Description 03/20/2021 Ancillary Procedure Radiology Library [place] [address] [place] [address] [phone] Social History Tobacco Use Types Packs/Day Years [...] [facility] DR [place], [place] [address] (Wo rk) 05/28/2022 Appointment Cardiology Zulma Dolan MD [facility] Dr [place], [place] [address] (Wo rk) 05/28/2022 Laboratory Appointment Lab 05/28/2022 Office Visit Cardiology Zulma Dolan MD [facility] [place] [address] Liz Poole PA [facility] [place] [address] 06/10/2022 Office Visit Dermatology Laura Scherer MD [facility] ER DR LEZAMA [address]-DERMAT [place], [place] 0[address] (Wo rk) documented as of [...] Organization Address City/State/ZIP Code Phon e Number [place], [place] documented in this encounter Visit Diagnoses Not on filedocumented in this encounter Care Teams Ibm Mainframe Systems Programmer Relationship Specialty Start Date End Date Lovely Vicente MD PCP - General 04/16/[address] [place] [address] documented as of this encounter
--- OUTSIDE RECORDS SUMMARY | 2022-03-23 09:35 | XMS_ITS | Encounter Summary ---
:1945 [place] [address] Care Team Providers Name Role Phone Lovely Vicente MD Primary Care Provider Encounter Details Date Type Department Care Team Description 07/12/2019 Office Visit Dermatology at [facility], Rigoberto Yarbrough (actinic keratosis); MD SHAY Quick III (seborrheic keratosis); [address] [facility] Multiple benign nevi; [place] [address] History of melanoma [phone] [facility]-DERMAT[facility] [place], [place] [address] Social History Tobacco Use Types [...] [facility] DR TADEO [place], [place] 0[address] (Wo rk) 05/28/2022 Appointment Cardiology Zulma Dolan MD [facility] [place], [place] 0375 (Wo rk) 05/28/2022 Laboratory Appointment Lab 05/28/2022 Office Visit Cardiology Zulma Dolan [place] [facility] [place] [address] Liz Poole PA [facility] [place] [address] 06/10/2022 Office Visit Dermatology Laura Scherer MD [facility] DR TEJA GR-DERMAT OLOGY [place], [place] 0[address] (Wo rk) documented as of this encounter Visit Diagnoses Diagnosis AK (actinic keratosis) Actinic keratosis SK (seborrheic keratosis) Other seborrheic keratosis Multiple benign nevi Benign neoplasm of skin, site unspecifie d History of melanoma Personal history of malignant melanoma o f skin documented in this encounter Care Teams Sausage Machine Operator Relationship Specialty Start Date End Date Lovely Vicente MD PCP - General 04/16/[address] [place] [address] [address] [facility] [place] [address] documented as of this encounter
--- OUTSIDE RECORDS SUMMARY | 2022-03-23 09:35 | XMS_ITS | Encounter Summary ---
:1945 [place] [address] Care Team Providers Name Role Phone Lovely Vicente MD Primary Care Provider Reason for Visit Reason Comments Skin Cancer Examination Encounter Details Date Type Department Care Team Description 03/20/2021 Office Visit Dermatology at [facility] Brennen Rene MD History of melanoma; 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 Last visit at [facility] Derm: 01/02/2020 Medications: Reviewed in [...] signed by: LAURA RENE MD Dermatology [facility] documented in this encounter Plan of Treatment Upcoming Encounters Date Type Specialty Care Team Description 03/26/2022 Office Visit Cardiology Vitaliy Nobles MD [facility] CARDIOLOGY [place], [place] 0375 (Wo rk) 05/28/2022 Appointment Cardiology Zulma Dolan MD [facility] [place], [place] 0375 (Wo rk) 05/28/2022 Laboratory Appointment Lab 05/28/2022 Office Visit Cardiology Zulma Dolan MD [facility] [place] [address] Liz Poole PA [facility] [place] [address] 06/10/2022 Office Visit Dermatology Laura Rene MD [facility] DR TJEA GR-DERMAT [place], [place] 0375 (Wo rk) documented as of this encounter Visit Diagnoses Diagnosis History of melanoma Personal history of malignant melanoma o f skin History of dysplastic nevus Personal history of diseases of skin and subcutaneous tissue Multiple benign nevi Benign neoplasm of skin, site unspecifie d SK (seborrheic keratosis) Other seborrheic keratosis [place] (actinic keratosis) Actinic keratosis documented in this encounter Care Teams Acute Care Physical Therapist Relationship Specialty Start Date End Date Lovely Vicente MD PCP - General 04/16/15 [facility] [address] [place] [address] documented as of this encounter
--- OUTSIDE RECORDS SUMMARY | 2022-03-23 09:36 | XMS_ITS | Encounter Summary ---
:1945 Author Organization [facility] [address] Care Team Providers Name Role Phone Lovely Vicente MD Primary Care Provider Encounter Details Date Type Department Care Team Description 10/05/2017 Telephone Cardiology [place] [facility] Tamiko Sin MD [facility] [place] [address] CARDIOLOGY DEPT [phone] [place], [place] [address] (Wo rk) Social History Tobacco [...] MD [facility] [address]LY[address] [place] [address] (Wo rk) 05/28/2022 Appointment Cardiology Zulma Dolan MD [facility] Dr [place] [address] (Wo rk) 05/28/2022 Laboratory Appointment Lab 05/28/2022 Office Visit Cardiology Zulma Dolan MD [facility] [place] [address] Liz Poole PA [facility] [place] [address] 06/10/2022 Office Visit Dermatology Laura Scherer MD [facility] DR LEZAMA RD-DERMAT [place], [place] [address] (Wo rk) documented as of this encounter Visit Diagnoses Not on filedocumented in this encounter Care Teams Slat Basket Maker Helper Machine Relationship Specialty Start Date End Date Lovely Vicente MD PCP - General 04/16/[address] [place] [address] documented as of this encounter
--- OUTSIDE RECORDS SUMMARY | 2022-03-23 09:36 | XMS_ITS | Encounter Summary ---
:1945 Author Organization [facility] [place] [address] Care Team Providers Name Role Phone Lovely Vicente MD Primary Care Provider Reason for Visit Reason Onset Date Comments Other 11/11/2017 Please call [facility] Encounter Details Date Type Department Care Team Description 11/11/2017 Telephone Cardiology [place] [facility] Danette Maxwell, Other (Please call [facility] ) [place] [address] CARDIOLOGY [place], [place] 0375 (Wo rk) Social History Tobacco [...] [facility] DR TADEO [place], [place] [address] (Wo rk) 05/28/2022 Appointment Cardiology Zulma Dolan MD [facility] [place], [place] 0[address] (Wo rk) 05/28/2022 Laboratory Appointment Lab 05/28/2022 Office Visit Cardiology uZlma Dolan MD [facility] [place] [address] Liz Poole PA [facility] [place] [address] 06/10/2022 Office Visit Dermatology Laura Scherer MD [facility] DR TEJA GR-DERMAT [place], [place] [address] (Wo rk) documented as of this encounter Visit Diagnoses Not on filedocumented in this encounter Care Teams Researcher Relationship Specialty Start Date End Date Lovely Vicente MD PCP - General 04/16/[address] [place] [address] documented as of this encounter
--- OUTSIDE RECORDS SUMMARY | 2022-03-23 09:36 | XMS_ITS | Encounter Summary ---
:1945 Author Organization [facility] [place] [address] Care Team Providers Name Role Phone Lovely Vicente MD Primary Care Provider Encounter Details Date Type Department Care Team Description 11/29/2017 Hospital Encounter Vascular Lab at Janett Walter PAD (peripheral [facility], RVT artery [facility]) [place] [address] Social History Tobacco Use Types Packs/Day Years [...] MD [facility] DR TADEO [place], [place] 0[address] (Wo rk) 05/28/2022 Appointment Cardiology Zulma Dolan MD [facility] [place], [place] [address] (Wo rk) 05/28/2022 Laboratory Appointment Lab 05/28/2022 Office Visit Cardiology Zulma Dolan MD [facility] [place] [address] Liz Poole PA [facility] [place] [address] 06/10/2022 Office Visit Dermatology Laura Scherer MD [facility] DR TEJA GR-DERMAT [place], [place] [address] [...] Component Value Ref Test Analysis Performed At [facility] Range Method Time Signature VB Text Department: Vascular Surgery Lab [facility] Report Patient: [id number] (GREGORY HOANG) CPT: 94338 ICD10: I72.4;I73.9 Referring Physician: ANNETTE MAXWELL ?? [...] Laterality 11/29/2017 10:32 AM EDT Annette Maxwell TAFE LECTURER VASCULAR ORDERABLES Performing Organization Address City/State/ZIP Code Phon e Number [facility] documented in this encounter Visit Diagnoses Diagnosis PAD (peripheral artery disease) Peripheral vascular disease, unspecified documented in this encounter Care Teams Deck Molder Relationship Specialty Start Date End Date Lovely Vicente MD PCP - General 04/16/[address] [place] [address] documented as of this encounter
--- OUTSIDE RECORDS SUMMARY | 2022-03-23 09:36 | XMS_ITS | Encounter Summary ---
:1945 Author Organization [place] [address] Care Team Providers Name Role Phone Lovely Vicente MD Primary Care Provider Reason for Visit Reason Comments Follow-up I'm having trouble with the VAC Encounter Details Date Type Department Care Team Description 08/26/2017 Office Visit Vascular Surgery at [facility], STEPHANIE Mercado Atheroembolism of foot, right; [facility] [address] Delayed surgical wound healing, initial encounter; [facility] VASCULAR SURG YEHUDA Acute on chronic systolic congestive hea rt failure ; [place], [place] [phone] Social History Tobacco Use Types Packs/Day Years [...] home and into the care of the [facility]. However, since discharge from [facility] he has had some difficulty with continuation [...] THE CRIMINALLY INSANE MAIN OR ??? PRO AMPUTATION FOOT, TRANSMETATARSAL Right 08/09/2017 AMPUTATION, TRANSMETATARSAL (WRVU 12.71) performed by Yonathan Smith MD at [facility] [...] FOR THE CRIMINALLY INSANE ENDOSCOPY ??? PRO DRESSING CHANGE UNDER ANESTHESIA Right 08/11/2017 (MSURG) DRESSING CHANGE (FOR OTHER THAN IVAN) UNDER ANES. (WRVU 0.86) performed by Lamar Smith MD at [facility] MAIN OR ??? PRO ENDOSCOPY W/VIDEO-ASST VEIN HARVEST, CABG Right 07/07/2017 ENDOSCOPIC HARVEST VEIN(S) FOR CABG (WRVU 0.31) performed by Yuan Retana MD at [facility] MAIN OR ??? PRO THYROIDECTOMY 03/28/2013 THYROIDECTOMY, TOTAL OR COMPLETE performed by Manny Mcknight MD at [facility] MAIN OR Social Hx: Social History Substance [...] MD [facility] [address] T[address] [place], [place] [address] (Wo rk) 05/28/2022 Appointment Cardiology Zulma Dolan MD [facility] [address] [place], [place] [address] (Wo rk) 05/28/2022 Laboratory Appointment Lab 05/28/2022 Office Visit Cardiology Zulma Dolan MD [facility] [place] [address] Liz Poole PA [facility] [place] [address] 06/10/2022 Office Visit Dermatology Laura Scherer MD [facility] [address]DERMAT [place], [place] 0[address] (Wo rk) documented as [...] Component Value Ref Test Analysis Performed At [facility] Range Method Time Signature VB Text Department: Vascular Surgery Lab VASCUBASE Report Patient: [id number] (GREGORY FATIMA) CPT: 61328 ICD10: T81.89XA;I75.021 Referring Physician: ARIK CLEMENT ?? [...] Signature Glucose Lvl 98 65 - 199 [facility] mg/dL [facility] Comment: Diabetes: >=200 mg/dL plus symp toms BUN 20 10 - 20 mg/dL [facility] Creatinine 1.17 0.80 - 1.50 [...] - 15 mmol/L [facility] Calcium 9.1 8.5 - 10.5 mg/dL [facility] Estimated GFR >60 >=60 [facility] Comment: The reported eGFR should be multiplied b y 1.2 for patients. The MDRD is not an appropriate measure o f renal function for patients with body mass extremes or in patients with acute kidney failure. http://Validus/DHnkdep http://Validus/DHMCnkf Specimen Anatomical Collection Method Collection Time Receive d Time (Source) Location / / Volume Laterality Blood specimen 08/26/2017 2:00 PM 018 2:15 (specimen) EST PM EST Resulting Agency Comment Spec In Lab Danette Maxwell APRN CHEMISTRY ORDERABLES Performing Organization Address City/State/[place] [address] (ABNORMAL) pro-Brain Natriuretic Peptide (08/26/2017 2:00 PM EST) P athologist Signature ProBNP 2,373 (H) <=125 [facility] pg/mL [facility] Specimen Anatomical Collection Method Collection Time Receive d Time (Source) Location / / Volume Laterality Blood specimen 08/26/2017 2:00 PM 018 2:15 (specimen) EST PM EST Resulting Agency Comment Spec In Lab Danette A Hans QUINONES CHEMISTRY ORDERABLES Performing Organization Address City/State/[place] [address] documented in this encounter Visit Diagnoses Diagnosis Atheroembolism of foot, right Delayed surgical wound healing, initial encounter Acute on chronic systolic congestive hea rt failure Acute on chronic systolic heart failure Ischemic cardiomyopathy Other specified forms of chronic ischemi c heart disease documented in this encounter Care Teams Lead Front End Developer Relationship Specialty Start Date End Date Lovely Vicente MD PCP - General 04/16/[address] [place] [address] documented as of this encounter
--- OUTSIDE RECORDS SUMMARY | 2022-03-23 09:36 | XMS_ITS | Encounter Summary ---
:1945 Author Organization [facility] [place] [address] Care Team Providers Name Role Phone Lovely Vicente MD Primary Care Provider Encounter Details Date Type Department Care Team Description 04/18/2018 Laboratory Appointment Lab 3L [facility] [place] [phone] Social History Tobacco Use Types Packs/Day Years [...] [facility] DR CARLYLE [place], [place] [address] (Wo rk) 05/28/2022 Appointment Cardiology Zulma Dolan MD [facility] [address] [place], [place] [address] (Wo rk) 05/28/2022 Laboratory Appointment Lab 05/28/2022 Office Visit Cardiology Zulma Dolan MD [facility] [place] [address] Liz Poole PA [facility] [place] [address] 06/10/2022 Office Visit Dermatology Laura Scherer MD [facility] ER [address]DERMAT [place], [place] [address] [...] 7.6 6.1 - 8.0 KATALINA RYAN gm/dL [facility] Albumin 4.0 3.2 - 5.2 KATALINA RYAN gm/dL [facility] AST 36 0 - 39 KATALINA RYAN unit/L [facility] ALT 27 0 - 55 K[place]INA RYAN unit/L [facility] Alk Phos 96 40 - 120 KATALINA RYAN unit/L [facility] Total 0.7 0.2 - 1.3 K[place]INA RYAN Bilirubin mg/dL [facility] Bili, Direct 0.1 0.0 - 0.3 K[place]ALINA RYAN mg/dL [facility] Specimen Anatomical Collection Method Collection Time Receive d Time (Source) Location / / Volume Laterality Blood specimen Venous Draw / 04/18/2018 9:19 AM 2017 9:44 (specimen) Unknown EDT AM EDT Resulting Agency Comment Spec In Lab Danette Maxwell CLIENT PROJECT COORDINATOR CHEMISTRY ORDERABLES Performing Organization Address City/State/ZIP Code Phon e Number [address] TSH (04/18/2018 9:19 AM EDT) athologist Signature TSH 1.77 0.27 - 4.20 [facility] mlU/ML [facility] Specimen Anatomical Collection Method Collection Time Receive d Time (Source) Location / / Volume Laterality Blood specimen Venous Draw / 04/18/2018 9:19 AM 2017 9:44 (specimen) Unknown EDT AM EDT Resulting Agency Comment Spec In Lab Danette Maxwell STACIE CHEMISTRY ORDERABLES Performing Organization Address City/State/ZIP Code Phon e Number [address] (ABNORMAL) Basic Metabolic Panel (non-fasting) (04/18/2018 9:19 AM EDT) [facility] Glucose Lvl 167 65 - 199 [facility] mg/dL [facility] Comment: Diabetes: >=200 mg/dL plus [...] 31 mmol/L [facility] Anion Gap 23 (H) 5 - 15 mmol/L [facility] Calcium 9.3 8.5 - 10.5 mg/dL [facility] Estimated GFR 61 >=60 mL/min/1.73 m?? [facility] Comment: The eGFR was calculated using the CKD-EP I equation. As with all creatinine based estimates of kidney function, eGFR values calculated with the CKD-EPI equation are not accurate in patients wi th acute kidney failure, extremes of body mass or the acutely ill. http://[employer]/[facility]LLISnkf eGFR 70 >=60 mL/min/1.73 m?? [facility] Comment: The eGFR was calculated using the CKD-EP I equation. As with all creatinine based estimates of kidney function, eGFR values calculated with the CKD-EPI equation are not accurate in patients wi th acute kidney failure, extremes of body mass or the acutely ill. http://[employer]/[facility] HOLLISnkf Specimen Anatomical Collection Method Collection Time Receive d Time (Source) Location / / Volume Laterality Blood specimen 04/18/2018 9:19 AM 018 9:34 (specimen) EDT AM EDT Resulting Agency Comment Spec In Lab Danette Maxwell APRN CHEMISTRY ORDERABLES Performing Organization Address City/State/[place] [address] (ABNORMAL) pro-Brain Natriuretic Peptide (04/18/2018 9:19 AM EDT) P athologist Signature ProBNP 2,199 (H) <=125 [facility] pg/mL [facility] Specimen Anatomical Collection Method Collection Time Receive d Time (Source) Location / / Volume Laterality Blood specimen 04/18/2018 9:19 AM 018 9:34 (specimen) EDT AM EDT Resulting Agency Comment Spec In Lab Danette Maxwell APRN CHEMISTRY ORDERABLES Performing Organization Address City/State/[place] [address] documented in this encounter Visit Diagnoses Diagnosis Chronic systolic heart failure documented in this encounter Care Teams Field Court Researcher Relationship Specialty Start Date End Date Lovely Vicnete MD PCP - General 04/16/[address] [place] [address] documented as of this encounter
--- OUTSIDE RECORDS SUMMARY | 2022-03-23 09:36 | XMS_ITS | Encounter Summary ---
:1945 Author Organization [facility] [place] [address] Care Team Providers Name Role Phone Lovely Vicente MD Primary Care Provider Reason for Visit Reason Onset Date Comments Follow-up 07/13/2018 amiodarone discontin ued Encounter Details Date Type Department Care Team Description 07/13/2018 Telephone Cardiology at [facility] Martha Comer, Follow-up (amiodarone [facility] RN discontin ued) [place] [address] Social History Tobacco Use Types Packs/Day [...] RN - 07/13/2018 8:57 AM EST Per [employer] call placed to the home number for the pt. confirmed that the pt is still taking the amiodarone. Pt is to stop the amiodarone. Pt taking it for post op a-fib, therapy was supposed to be for 30 days. Message given to his . She will give him the message and will have him call with any questions. Call placed to the [facility] pharmacy in [place] to discontinue it there as well. Med list updated. documented in this encounter Plan of Treatment Upcoming Encounters Date Type Specialty Care Team Description 03/26/2022 Office Visit Cardiology Vitaliy Nobles MD [facility] [address] TADE[address] [place], [place] [address] (Wo rk) 05/28/2022 Appointment Cardiology Zulma Dolan MD [facility] [place], [place] 0[address] (Wo rk) 05/28/2022 Laboratory Appointment Lab 05/28/2022 Office Visit Cardiology Zulma Dolan MD [facility] [place] [address] Liz Poole PA [facility] [place] [address] 06/10/2022 Office Visit Dermatology Laura Scherer MD [facility] DR [address] [place], [place] [address] (Wo rk) documented as of this encounter Visit Diagnoses Not on filedocumented in this encounter Care Teams Palletizer Relationship Specialty Start Date End Date Lovely Vicente MD PCP - General 04/16/[address] [place] [address] documented as of this encounter
--- OUTSIDE RECORDS SUMMARY | 2022-03-23 09:36 | XMS_ITS | Encounter Summary ---
:1945 Author Organization [facility] [place] [address] Care Team Providers Name Role Phone Lovely Vicente MD Primary Care Provider Encounter Details Date Type Department Care Team Description 10/07/2017 Laboratory Appointment Lab 3L [facility] [place] [phone] Social History Tobacco Use Types Packs/Day Years [...] Cardiology Vitaliy Nobles MD [facility] DR [place]LYLE [place], [place] [address] (Wo rk) 05/28/2022 Appointment Cardiology Zulma Dolan MD [facility] [address] [place], [place] [address] (Wo rk) 05/28/2022 Laboratory Appointment Lab 05/28/2022 Office Visit Cardiology Zulma Dolan MD [facility] [place] [address] Liz Poole PA [facility] [place] [address] 06/10/2022 Office Visit Dermatology Laura Scherer MD [facility] ER DR [address]DERMAT [place], [place] 0[address] (Wo rk) documented as of [...] Signature Glucose Lvl 99 65 - 199 [facility] mg/dL [facility] Comment: Diabetes: >=200 mg/dL plus symp toms BUN 27 (H) 10 - 20 mg/dL [facility] Creatinine 1.07 0.80 - 1.50 mg/dL [facility] [...] mmol/L [facility] Calcium 8.4 (L) 8.5 - 10.5 mg/dL [facility] Estimated GFR >60 >=60 KATALINA Wyatt [facility] Comment: The reported eGFR should be multiplied b y 1.2 for patients. The MDRD is not an appropriate measure o f renal function for patients with body mass extremes or in patients with acute kidney failure. http://Poliglota/DHnkdep http://Poliglota/DHMCnkf Specimen Anatomical Collection Method Collection Time Receive d Time (Source) Location / / Volume Laterality Blood specimen 10/07/2017 8:48 AM 018 8:50 (specimen) EDT AM EDT Resulting Agency Comment Spec In Lab Danette Maxwell STACIE CHEMISTRY ORDERABLES Performing Organization Address City/State/[place] [address] (ABNORMAL) pro-Brain Natriuretic Peptide (10/07/2017 8:48 AM EDT) P athologist Signature ProBNP 1,170 (H) <=125 [facility] pg/mL [facility] Specimen Anatomical Collection Method Collection Time Receive d Time (Source) Location / / Volume Laterality Blood specimen 10/07/2017 8:48 AM 018 8:50 (specimen) EDT AM EDT Resulting Agency Comment Spec In Lab Danette Maxwell STACIE CHEMISTRY ORDERABLES Performing Organization Address City/State/[place] [address] documented in this encounter Visit Diagnoses Diagnosis Chronic systolic heart failure documented in this encounter Care Teams Manager Business Intelligence Relationship Specialty Start Date End Date Lovely Vicente MD PCP - General 04/16/[address] [place] [address] documented as of this encounter
--- OUTSIDE RECORDS SUMMARY | 2022-03-23 09:36 | XMS_ITS | Encounter Summary ---
:1945 Author Organization [facility] [place] [address] Care Team Providers Name Role Phone Lovely Vicente MD Primary Care Provider Encounter Details Date Type Department Care Team Description 10/05/2017 Unscheduled Cardiology at [facility] RONNIE Sin PATIENT NOT SEEN Encounter [facility] Tamiko Martinez MD [facility] [phone] CARDIOLOGY DEPT [phone] [place] [address] Social History Tobacco Use Types Packs/Day Years [...] MD [facility] ER DR TADE[address] [place], [place] [address] (Wo rk) 05/28/2022 Appointment Cardiology Zulma Dolan MD [facility] [place], [place] [address] (Wo rk) 05/28/2022 Laboratory Appointment Lab 05/28/2022 Office Visit Cardiology Zulma Dolan MD [facility] [place] [address] Liz Poole PA [facility] [place] [address] 06/10/2022 Office Visit Dermatology Laura Scherer MD [facility] DR [address]DERMAT [place], [place] [address] (Wo rk) documented as of this encounter Visit Diagnoses Diagnosis DH PATIENT NOT SEEN documented in this encounter Care Teams Superintendent Of Schools Relationship Specialty Start Date End Date Lovely Vicente MD PCP - General 04/16/[address] [place] [address] documented as of this encounter
--- OUTSIDE RECORDS SUMMARY | 2022-03-23 09:36 | XMS_ITS | Encounter Summary ---
:1945 Author Organization [facility] [place] [address] Care Team Providers Name Role Phone Lovely Vicente MD Primary Care Provider Reason for Referral Diagnostic Test (Routine) - Closed Specialty Diagnoses / Procedures Referred By Contact Refer red To Contact Cardiology Diagnoses Ischemic cardiomyopathy Acute on chronic systolic congestive heart failure Danette Maxwell APRN [facility] Non-Inv Card Lab Procedures Echocardiogram Transthoracic(Leb) [facility] [place] [address] [place] [address] Referral ID Status Reason Start Date Expiration Date Visits V isits Requested Authorized [id number] Closed Specialty 08/30/2017 08/30/2018 1 1 Service Requested Encounter Details Date Type Department Care Team Description 08/26/2017 Office Visit Cardiology at [facility] aDnette Maxwell Ischemic cardiomyopathy; [facility] STACIE Gomes Acute on chronic systolic congestive hea rt failure ; Drive 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 to the [...] Nobles MD [facility] [address] [place], [place] [address] (Wo rk) 05/28/2022 Appointment Cardiology Zulma Dolan MD [facility] [address] [place], [place] [address] (Wo rk) 05/28/2022 Laboratory Appointment Lab 05/28/2022 Office Visit Cardiology Zulma Dolan MD [facility] [place] [address] Liz Poole PA [facility] [place] [address] 06/10/2022 Office Visit Dermatology Laura Scherer MD [facility] [address] [place], [place] 0375 (Wo rk) documented as of this encounter Results ECHOCARDIOGRAM COMPLETE W CONTRAST (10/07/2017 10:23 AM EDT) athologist Signature EF 45 [facility] Specimen (Source) Anatomical Location Collection Method / Collectio n Time Received Time / Laterality Volume 10/07/2017 Narrative [facility] - 10/07/2017 11:13 AM ED T Procedure: ?Transthoracic Echocardiogram Patient: ?NATALYA JENKINS E ? (Age): 1945(72y) Med Rec#: ? [id number] ?Sex: ?M ? Site Loc: ? [facility] ?Ht / Wt: ??173(cm)/82(kg) Pt. Loc: ?Echo Lab ?BSA: ?1.96 Study Date: ?? 10/07/2017 ?Pt. Type: Outpatient Tape: ? Referring: Danette Maxwell Reading: Iker Cuevas ([id number]) Assembler Erector: Yonathan Bocanegra Diagnosis: *ICD-10-PCS Ischemic cardiomyopathy (I2 [...] E-wave Vmax ?1.2 ?m/sec ? MV deceleration [id number] ?msec ? MV A-wave Vmax ?1 ?m/sec [...] ? Mid-Inferior ?Hypokinetic ? Mid-Inferoseptal ?Hypokinetic ? Clayton-Septal ? Akinetic ? Clayton-Anterior ? Hypokinetic ? Clayton-Lateral ?Hypokinetic ? Clayton-Inferior ? Hypokinetic ? Clayton-Tip ?Akinetic ? This report has been electronically sign ed by: _ Iker Cuevas M.D. ? 10/07/2017 11:12:34 Images reviewed and interpretation verif d [facility] Cardiac Ultrasound Laboratory Procedure Note Iker Cuevas MD - 10/07/2017Formatti ng of this note might be different from the original. Procedure: Transthoracic Echocardiogram Patient: NATALYA MCBRIDE(Age): [birth year]72y) Med Rec#: [id number] Sex: M Site Loc: [facility] Ht / Wt: 173(cm)/82(kg) Pt. Loc: Echo Lab BSA: 1.96 Study Date: 10/07/2017 Pt. Type: Outpati ent Tape: Referring: Danette Maxwell Reading: Iker Cuevas ([id number]) Assembler Erector: Yonathan Bocanegra Diagnosis: *ICD-10-PCS Ischemic cardiomyopathy (I2 [...] MV E-wave Vmax 1.2 m/sec MV deceleration [id number] msec MV A-wave Vmax 1 m/sec MV [...] Akinetic Mid-Posterolateral Hypokinetic Mid-Inferior Hypokinetic Mid-Inferoseptal Hypokinetic Clayton-Septal Akinetic Clayton-Anterior Hypokinetic Clayton-Lateral Hypokinetic Clayton-Inferior Hypokinetic Clayton-Tip Akinetic This report has been electronically sign ed by: _ Iker Cuevas M.D. 10/07/2017 11:12 :34 Images reviewed and interpretation verif ied [facility] Cardiac Ultrasound Laboratory Danette Maxwell APRN ECHO ORDERABLES Performing Organization Address City/State/ZIP Code Phon e Number [facility] Basic Metabolic Panel (non-fasting) (08/26/2017 2:00 PM EST) P athologist Signature Glucose Lvl 98 65 - 199 [facility] mg/dL [facility] Comment: Diabetes: >=200 mg/dL plus symp toms BUN 20 10 - 20 mg/dL [facility] Creatinine 1.17 0.80 - 1.50 [...] mmol/L [facility] Calcium 9.1 8.5 - 10.5 mg/dL [facility] Estimated GFR >60 >=60 [facility] Comment: The reported eGFR should be multiplied b y 1.2 for patients. The MDRD is not an appropriate measure o f renal function for patients with body mass extremes or in patients with acute kidney failure. http://Daqi/DHnkdep http://Da[employer]/DHMCnkf Specimen Anatomical Collection Method Collection Time Receive d Time (Source) Location / / Volume Laterality Blood specimen 08/26/2017 2:00 PM 018 2:15 (specimen) EST PM EST Resulting Agency Comment Spec In Lab Danette Maxwell APRN CHEMISTRY ORDERABLES Performing Organization Address City/[facility]/ZIP [place] [address] (ABNORMAL) pro-Brain Natriuretic Peptide (08/26/2017 2:00 PM EST) P athologist Signature ProBNP 2,373 (H) <=125 [facility] pg/mL [facility] Specimen Anatomical Collection Method Collection Time Receive d Time (Source) Location / / Volume Laterality Blood specimen 08/26/2017 2:00 PM 018 2:15 (specimen) EST PM EST Resulting Agency Comment Spec In Lab Danette Maxwell APRN CHEMISTRY ORDERABLES Performing Organization Address City/State/[place] [address] documented in this encounter [...] documented in this encounter Care Teams Java Performance Engineer Relationship Specialty Start Date End Date Lovely Vicente MD PCP - General 04/16/[address] [place] [address] documented as of this encounter
--- OUTSIDE RECORDS SUMMARY | 2022-03-23 09:36 | XMS_ITS | Encounter Summary ---
:1945 Author Organization [facility] [place] [address] Care Team Providers Name Role Phone Lovely Vicente MD Primary Care Provider Reason for Visit Reason Comments Follow-up Skin Check Encounter Details Date Type Department Care Team Description 01/06/2018 Office Visit Dermatology at Rigoberto Formantipmirna nevi; Abdelrahman HOOPER MD History of melanoma; [address] [facility] [place] [address] [facility] [place], [place] [address] Social History Tobacco Use Types [...] encounter. Rigoberto Garcia MD Section of Dermatology [facility] documented in this encounter Plan of Treatment Upcoming Encounters Date Type Specialty Care Team Description 03/26/2022 Office Visit Cardiology Vitaliy Nobles MD [facility] CARDIOLOGY [place], [place] [address] (Wo rk) 05/28/2022 Appointment Cardiology Zulma Dolan MD [facility] [place], [place] [address] (Wo rk) 05/28/2022 Laboratory Appointment Lab 05/28/2022 Office Visit Cardiology Zulma Dolan MD [facility] [place] [address] Liz Poole PA [facility] [place] [address] 06/10/2022 Office Visit Dermatology Laura Scherer MD [facility] [address]-DERMAT [place]LOG[place], [place] [address] (Wo rk) documented as of this encounter Visit Diagnoses Diagnosis Multiple nevi Benign neoplasm of skin, site unspecifie d History of melanoma Personal history of malignant melanoma o f skin Seborrheic keratosis Other seborrheic keratosis documented in this encounter Care Teams Strategic Sourcing Manager Relationship Specialty Start Date End Date Lovely Vicente MD PCP - General 04/16/15 [facility] [address] [place] [address] documented as of this encounter
--- OUTSIDE RECORDS SUMMARY | 2022-03-23 09:36 | XMS_ITS | Encounter Summary ---
:1945 Author Organization [facility] [address] Care Team Providers Name Role Phone Lovely Vicente MD Primary Care Provider Reason for Visit Reason Comments Skin Check Encounter Details Date Type Department Care Team Description 07/06/2018 Office Visit Dermatology at Teja Garcia, Rigoberto Yarbrough (actinic keratosis); MD SHAY Quick III (seborrheic keratosis); [address] [facility] History of melanoma; [place] [address] Skin exam for malignant neoplasm [phone] [facility] [place], [place] [address] Social History Tobacco Use Types [...] [facility] [address] T[address] [place], [place] [address] (Wo rk) 05/28/2022 Appointment Cardiology Zulma Dolan MD [facility] [address] [place], [place] [address] (Wo rk) 05/28/2022 Laboratory Appointment Lab 05/28/2022 Office Visit Cardiology Zulma Dolan MD [facility] [place] [place] [address] Liz Poole PA [facility] [place] [address] 06/10/2022 Office Visit Dermatology Laura Scherer MD [facility] [address]-DERMAT [place]LOG[place], [place] 0[address] (Wo rk) documented as of this encounter Visit Diagnoses Diagnosis AK (actinic keratosis) Actinic keratosis SK (seborrheic keratosis) Other seborrheic keratosis History of melanoma Personal history of malignant melanoma o f skin Skin exam for malignant neoplasm Screening for malignant neoplasm of the skin documented in this encounter Care Teams Hand Cigar Making Supervisor Relationship Specialty Start Date End Date Lovely Vicente MD PCP - General 04/16/[address] [place] [address] documented as of this encounter
--- OUTSIDE RECORDS SUMMARY | 2022-03-23 09:36 | XMS_ITS | Encounter Summary ---
:1945 Author Organization [facility] [place] [address] Care Team Providers Name Role Phone Lovely Vicente MD Primary Care Provider Encounter Details Date Type Department Care Team Description 11/29/2017 Laboratory Lab 3L Barbara Wiseman systoli c congestive heart failure; Appointment [facility] ASCVD (ar teriosclerotic cardiovascular disease); Hospital Cardiomyopathy, [place] [address] Social History Tobacco Use Types [...] [facility] [address] TADE[address] [place], [place] [address] (Wo rk) 05/28/2022 Appointment Cardiology Zulma Dolan MD [facility] [address] [place], [place] [address] (Wo rk) 05/28/2022 Laboratory Appointment Lab 05/28/2022 Office Visit Cardiology TrudiZulma Knowles MD [facility] [place] [address] Liz Poole PA [facility] [place] [address] 06/10/2022 Office Visit Dermatology Laura Scherer MD [facility] ER [address]-DERMAT OLOG[place], [place] [address] (Wo rk) documented as [...] 12.5 [facility] LABORATORY INR 2.1 [facility] [...] Address City/State/[place] [address] (ABNORMAL) Basic Metabolic Panel (non-fasting) (11/29/2017 8:22 AM EDT) P athologist Signature Glucose Lvl 217 (H) 65 - 199 [facility] mg/dL [facility] LABORATORY Comment: Diabetes: >=200 mg/dL plus symp toms BUN 26 (H) 10 - 20 mg/dL [facility] LABORATORY Creatinine 0.96 0.80 - 1.50 mg/dL [facility] LABORATORY Sodium 137 135 [...] [facility] Estimated GFR >60 >=60 [facility] LABORATORY Comment: The reported eGFR should be multiplied b y 1.2 for patients. The MDRD is not an appropriate measure o f renal function for patients with body mass extremes or in patients with acute kidney failure. http://[employer]/DHnkdep http://[employer]/DHMCnkf Specimen Anatomical Collection Method Collection Time Receive d Time (Source) Location / / Volume Laterality Blood specimen 11/29/2017 8:22 AM 018 8:29 (specimen) EDT AM EDT Resulting Agency Comment Spec In Lab Danette Maxwell PUBLIC HEALTH ASSISTANT CHEMISTRY ORDERABLES Performing Organization Address City/State/[place] [address] (ABNORMAL) pro-Brain Natriuretic Peptide (11/29/2017 8:22 AM EDT) P athologist Signature ProBNP 1,769 (H) <=125 [facility] pg/mL [facility] LABORATORY Specimen Anatomical Collection Method Collection Time Receive d Time (Source) Location / / Volume Laterality Blood specimen 11/29/2017 8:22 AM 018 8:29 (specimen) EDT AM EDT Resulting Agency Comment Spec In Lab Danette Maxwell PUBLIC HEALTH ASSISTANT CHEMISTRY ORDERABLES Performing Organization Address City/[facility]/[place] [address] Lavender Tube HOLD (11/29/2017 8:14 AM EDT) Patholo gist Method Time Signature Lavender Hold Sample in [facility]. [facility] LABORATORY Specimen Anatomical Collection [...] disease documented in this encounter Care Teams Electrical Equipment Assembler Relationship Specialty Start Date End Date Lovely Vicente MD PCP - General 04/16/[address] [place] [address] documented as of this encounter
--- OUTSIDE RECORDS SUMMARY | 2022-03-23 09:36 | XMS_ITS | Encounter Summary ---
:1945 Author Organization [facility] [place] [address] Care Team Providers Name Role Phone Lovely Vicente MD Primary Care Provider Reason for Referral Consultation (Routine) - Specialty Diagnoses / Procedures Referred By Contact Refer red To Contact Wound Healing Center Diagnoses Atheroembolism of foot, right Delayed surgical wound healing, subsequent encounter Aurelia Rivera PA [address] [facility] [place] [address] Referral ID Status Reason Start Date Expiration Date Visits V isits Requested Authorized [id number] Consult, 09/08/2017 03/07/2018 1 1 Test & Treat Reason for Visit Reason Comments Wound Check My foot hurts Encounter Details Date Type Department Care Team Description 09/07/2017 Office Visit Vascular Surgery at MiguelAurelia PA Atheroembolism of foot, right; [facility] [address] [facility] Delayed surgical wound healing, subseque nt encounter [facility] [place] [address] [phone] Social History Tobacco Use Types Packs/Day Years [...] at home for VAC dressing changes from [facility]. Since his last visit his right forefoot wound V[facility] care has improved [facility] better [facility] with [...] by Manny Mcknight MD at [facility] MAIN OR ??? PRO AMPUTATION FOOT, TRANSMETATARSAL Right 08/09/2017 AMPUTATION, TRANSMETATARSAL (WRVU 12.71) performed by Yonathan Smith MD at [facility] MAIN OR ??? PRO CABG, ARTERIAL, SINGLE N/A 07/07/2017 @CABG, USING ARTERIAL GRAFT;SINGLE ARTERIAL GRAFT (WRVU 33.75) performed by Yuan Retana MD at [facility] MAIN OR ??? PRO CABG, ARTERY-VEIN, TWO N/A 07/07/2017 @CABG, TWO VENOUS GRAFTS & ARTERIAL GRAFT (WRVU 7.93) performed by Yuan Retana MD at [facility] MAIN OR ??? PRO COLONOSCOPY, REMV LESN, SNARE 01/16/2014 COLONOSCOPY, POLYPECTOMY, REMOVAL LESION BY SNARE performed by Nohemi Jaimes MD at [facility] ENDOSCOPY ??? PRO DRESSING CHANGE UNDER ANESTHESIA Right 08/11/2017 (MSURG) DRESSING CHANGE (FOR OTHER THAN IVAN) UNDER ANES. (WRVU 0.86) performed by Lamar Smith MD at [facility] MAIN OR ??? PRO ENDOSCOPY W/VIDEO-ASST VEIN HARVEST, CABG Right 07/07/2017 ENDOSCOPIC HARVEST VEIN(S) FOR CABG (WRVU 0.31) performed by Yuan Retana MD at [facility] MAIN OR ??? PRO THYROIDECTOMY [...] Vitaliy Nobles MD [facility] [address] [place], [place] [address] (Wo rk) 05/28/2022 Appointment Cardiology Zulma Dolan MD [facility] [place], [place] [address] (Wo rk) 05/28/2022 Laboratory Appointment Lab 05/28/2022 Office Visit Cardiology Zulma Dolan MD [facility] [place] [address] Liz Poole PA [facility] [place] [address] 06/10/2022 Office Visit Dermatology Laura Scherer MD [facility] [address]DERMAT [place], [place] [address] (Wo rk) Scheduled Referrals Name Type Priority Associated Diagnoses Order S chedule Referral to Wound Outpatient Referral Routine Atheroembolism o f foot, Ordered: Clinic right 09/08/2017 Delayed surgical wound healing, subsequent encounter documented as of this encounter Visit Diagnoses Diagnosis Atheroembolism of foot, right Delayed surgical wound healing, subseque nt encounter documented in this encounter Care Teams Legal Services Professional Relationship Specialty Start Date End Date Lovely Vicente MD PCP - General 04/16/[address] [place] [address] documented as of this encounter
--- OUTSIDE RECORDS SUMMARY | 2022-03-23 09:36 | XMS_ITS | Encounter Summary ---
:1945 [place] [address] Care Team Providers Name Role Phone Lovely Vicente MD Primary Care Provider Encounter Details Date Type Department Care Team Description 11/29/2017 Hospital Encounter Radiology Library at Estefany Maxwell Pain [facility] SUPERVISOR SEWER MAINTENANCE [facility] [place] [address] CARDIOLOGY [phone] [place], [place] [address] (Wo rk) Social History Tobacco [...] Vitaliy Nobles MD [facility] CARDIOLOGY [place], [place] [address] (Wo rk) 05/28/2022 Appointment Cardiology Zulma Dolan MD [facility] [place], [place] 0[address] (Wo rk) 05/28/2022 Laboratory Appointment Lab 05/28/2022 Office Visit Cardiology Zulma Dolan MD [facility] [place] [address] Liz Poole PA [facility] [place] [address] 06/10/2022 Office Visit Dermatology Laura Scherer MD [facility] [address] [place], [place] 0[address] (Wo rk) documented as of [...] Time Received Time / Laterality Volume Narrative [facility] - 12/28/2017 11:07 AM EDT This exam is for storage only and is aut o-finalizing. Danettebrock Maxwell SUPERVISOR SEWER MAINTENANCE IMG FILM LIBRARY ORDERABLES Performing Organization Address City/State/ZIP Code Phon e Number [place], [place] documented in this encounter Visit Diagnoses Diagnosis Pain Generalized pain documented in this encounter Care Teams Job Developer For Deaf Adults Relationship Specialty Start Date End Date Lovely Vicente MD PCP - General 04/16/[address] [place] [address] documented as of this encounter
--- OUTSIDE RECORDS SUMMARY | 2022-03-23 09:36 | XMS_ITS | Encounter Summary ---
:1945 Author Organization [facility] [place] [address] Care Team Providers Name Role Phone Lovely Vicente MD Primary Care Provider Reason for Referral Diagnostic Test (Routine) - Specialty Diagnoses / Procedures Referred By Contact Refer red To Contact Cardiology Diagnoses Chronic systolic heart failure Danette Maxwell APRN [facility] Non-Inv Card Lab Procedures Echocardiogram Transthoracic(Leb) [facility] [place] [phone] [place] [address] Referral ID Status Reason Start Date Expiration Visits Visits Date Requested Authorized [id number] Specialty 08/15/2018 08/15/2018 1 1 Service Requested Reason for Visit Diagnostic Test (Routine) - Specialty Diagnoses / Procedures Referred By Contact Nawaf owen To Contact Cardiology Diagnoses Chronic systolic heart failure Danette Maxwell APRN [facility] Non-Inv Card Lab Procedures Echocardiogram Transthoracic(Leb) [facility] [place] [address] [place] [address] Referral ID Status Reason Start Date Expiration Visits Visits Date Requested Authorized [id number] Specialty 08/15/2018 08/15/2018 1 1 Service Requested Encounter Details Date Type Department Care Team Description 08/15/2018 Hospital Encounter Non-Invasive Danette Maxwell Chron ic systolic Cardiology Lab Barbara Gomes APRN heart failure [facility] [place] [address] [place], [place] [phone] [address] (Work) [phone] Social History Tobacco Use Types Packs/Day Years [...] [facility] CARDIOLOGY [place], [place] [address] (Wo rk) 05/28/2022 Appointment Cardiology Zulma Dolan MD [facility] [place], [place] 0[address] (Wo rk) 05/28/2022 Laboratory Appointment Lab 05/28/2022 Office Visit Cardiology Zulma Dolan MD [facility] [place] [address] Liz Poole PA [facility] [place] [address] 06/10/2022 Office Visit Dermatology Laura Scherer MD [facility] [address]DERMAT [place], [place] 0[address] (Wo rk) documented as of [...] Mccollum ? (Age): 1945(73y) Med Rec#: ? [id number] ?Sex: ?M ? Site Loc: ? [facility] ?Ht / Wt: ??172(cm)/81(kg) Pt. Loc: ?Echo Lab ?BSA: ?1.94 Study Date: ?? 08/15/2018 ?Pt. Type: Outpatient Tape: ? Referring: MARY ELLEN Reading: Scott Ortega ([id number]) Lining Caser: Laura Sargent Diagnosis: *Chronic systolic (congestive) heart [...] E-wave Vmax ?1.2 ?m/sec ? MV deceleration lkif428.4 ? msec ? MV A-wave Vmax ?0.7 [...] ? Mid-Inferior ?Hypokinetic ? Mid-Inferoseptal ?Hypokinetic ? [place]-Septal ? Akinetic ? [place]-Anterior ? Hypokinetic ? [place]-Lateral ?Akinetic ? [place]-Inferior ? Hypokinetic ? [place]-Tip ?Akinetic ? This report has been electronically sign ed by: _ Scott Ortega M.D. ? 08/15/2018 08:17:26 Images reviewed and interpretation verif iewanda [facility] Cardiac [facility] Procedure Note Scott Ortega MD - 08/15/2018Format ting of this note might be different from the original. Procedure: Transthoracic Echocardiogram Patient: NATALYA MCBRIDE(Age): [birth year]73y) Med Rec#: [id number] Sex: M Site Loc: [facility] Ht / Wt: 172(cm)/81(kg) Pt. Loc: Echo Lab BSA: 1.94 Study Date: 08/15/2018 Pt. Type: Outpati ent Tape: Referring: MARY ELLEN Reading: Scott Ortega ([id number]) Lining Caser: Laura Sargent Diagnosis: *Chronic systolic (congestive) heart [...] MV E-wave Vmax 1.2 m/sec MV deceleration dzun886.4 msec MV A-wave Vmax 0.7 m/sec MV [...] Akinetic Mid-Posterolateral Akinetic Mid-Inferior Hypokinetic Mid-Inferoseptal Hypokinetic [place]-Septal Akinetic [place]-Anterior Hypokinetic [place]-Lateral Akinetic [place]-Inferior Hypokinetic [place]-Tip Akinetic This report has been electronically sign ed by: _ Scott Ortega M.D. 08/15/2018 08:17: 26 Images reviewed and interpretation [facility] Cardiac Ultrasound Laboratory [...] Routine documented in this encounter Care Teams Geoscience Technician Relationship Specialty Start Date End Date Lovely Vicente MD PCP - General 04/16/[address] [place] [address] documented as of this encounter
--- OUTSIDE RECORDS SUMMARY | 2022-03-23 09:36 | XMS_ITS | Encounter Summary ---
:1945 Author Organization [facility] [place] [address] Care Team Providers Name Role Phone Lovely Vicente MD Primary Care Provider Encounter Details Date Type Department Care Team Description 08/19/2017 Office Visit Vascular Surgery at [place], PAD (peripheral artery [facility] HYDRAULIC DREDGE OPERATOR disease) [facility]ly [facility] [address] [place], [place] VASCULAR SURGERY [address] [place] [address] [phone] Social History Tobacco Use Types Packs/Day Years [...] [facility] DR [address] [place], [place] [address] (Wo rk) 05/28/2022 Appointment Cardiology Zulma Dolan MD [facility] [place], [place] [address] (Wo rk) 05/28/2022 Laboratory Appointment Lab 05/28/2022 Office Visit Cardiology Zulma Dolan MD [facility] [place] [address] Liz Poole PA [facility] [place] [address] 06/10/2022 Office Visit Dermatology Laura Scherer MD [facility] DR [address] GR[address]DERMAT [place], [place] [address] (Wo rk) documented as of this encounter Visit Diagnoses Diagnosis PAD (peripheral artery disease) Peripheral vascular disease, unspecified documented in this encounter Care Teams Ec Teacher Relationship Specialty Start Date End Date Lovely Vicente MD PCP - General 04/16/[address] [place] [address] documented as of this encounter
--- OUTSIDE RECORDS SUMMARY | 2022-03-23 09:36 | XMS_ITS | Encounter Summary ---
:1945 Author Organization [place] [address] Care Team Providers Name Role Phone Lovely Vicente MD Primary Care Provider Reason for Referral Diagnostic Test (Routine) - Closed Specialty Diagnoses / Procedures Referred By Contact Refer red To Contact Cardiology Diagnoses Ischemic cardiomyopathy Acute on chronic systolic congestive heart failure Danette Maxwell APRN [facility] Non-Inv Card Lab Procedures Echocardiogram Transthoracic(Leb) [facility] [place] [address] [place] [address] Referral ID Status Reason Start Date Expiration Date Visits V isits Requested Authorized [id number] Closed Specialty 08/30/2017 08/30/2018 1 1 Service Requested Reason for Visit Diagnostic Test (Routine) - Closed Specialty Diagnoses / Procedures Referred By Contact Refer red To Contact Cardiology Diagnoses Ischemic cardiomyopathy Acute on chronic systolic congestive heart failure Danette Maxwell APRN [facility] Non-Inv Card Lab Procedures Echocardiogram Transthoracic(Leb) [facility] [place] [address] [place] [address] Referral ID Status Reason Start Date Expiration Date Visits V isits Requested Authorized [id number] Closed Specialty 08/30/2017 08/30/2018 1 1 Service Requested Encounter Details Date Type Department Care Team Description 10/07/2017 Hospital Encounter Non-Invasive Ischemic cardiomyopathy; Cardiology Lab Barbara Craig on chronic systolic [place] [address] Social History Tobacco Use Types Packs/Day [...] Visit Cardiology Vitaliy Nobles MD [facility] CARDIOLOGY [place], [place] [address] (Wo rk) 05/28/2022 Appointment Cardiology Zulma Dolan MD [facility] [place], [place] [address] (Wo rk) 05/28/2022 Laboratory Appointment Lab 05/28/2022 Office Visit Cardiology Zulma Dolan MD [facility] [place] [address] Liz Poole PA [facility] [place] [address] 06/10/2022 Office Visit Dermatology Laura Scherer MD [facility] [address]DERMAT [place], [place] [address] (Wo rk) documented as of [...] Mccollum ? (Age): 1945(72y) Med Rec#: ? [id number] ?Sex: ?M ? [place] Loc: ? [facility] ?Ht / Wt: ??173(cm)/82(kg) Pt. Loc: ?Echo Lab ?BSA: ?1.96 Study Date: ?? 10/07/2017 ?Pt. Type: Outpatient Tape: ? Referring: Danette Maxwell Reading: Iker Cuevas ([id number]) Poultry Scalder: Yonathan Bocanegra Diagnosis: *ICD-10-PCS Ischemic cardiomyopathy (I2 [...] E-wave Vmax ?1.2 ?m/sec ? MV deceleration [id number] ?msec ? MV A-wave Vmax ?1 ?m/sec [...] ? Mid-Inferior ?Hypokinetic ? Mid-Inferoseptal ?Hypokinetic ? [place]-Septal ? Akinetic ? [place]-Anterior ? Hypokinetic ? [place]-Lateral ?Hypokinetic ? [place]-Inferior ? Hypokinetic ? [place]-Tip ?Akinetic ? This report has been electronically sign ed by: _ Iker Cuevas M.D. ? 10/07/2017 11:12:34 Images reviewed and interpretation verif ied [facility] Cardiac Ultrasound Laboratory Procedure Note Iker Cuevas MD - 10/07/2017Formatti ng of this note might be different from the original. Procedure: Transthoracic Echocardiogram Patient: NATALYA MCBRIDE(Age): [birth year]72y) Med Rec#: [id number] Sex: M Site Loc: [facility] Ht / Wt: 173(cm)/82(kg) Pt. Loc: Echo Lab BSA: 1.96 Study Date: 10/07/2017 Pt. Type: Outpati ent Tape: Referring: Danette Maxwell Reading: Iker Cuevas ([id number]) Poultry Scalder: Yonathan Bocanegra Diagnosis: *ICD-10-PCS Ischemic cardiomyopathy (I2 [...] MV E-wave Vmax 1.2 m/sec MV deceleration [id number] msec MV A-wave Vmax 1 m/sec MV [...] Akinetic Mid-Posterolateral Hypokinetic Mid-Inferior Hypokinetic Mid-Inferoseptal Hypokinetic [place]-Septal Akinetic [place]-Anterior Hypokinetic [place]-Lateral Hypokinetic [place]-Inferior Hypokinetic [place]-Tip Akinetic This report has been electronically sign ed by: _ Iker Cuevas M.D. 10/07/2017 11:12 :34 Images reviewed and interpretation verif ied [facility] Cardiac Ultrasound Laboratory Danette Maxwell APRN [...] Routine documented in this encounter Care Teams Verify Rep Relationship Specialty Start Date End Date Lovely Vicente MD PCP - General 04/16/[address] [place] [address] [address] [place] [address] documented as of this encounter
--- OUTSIDE RECORDS SUMMARY | 2022-03-23 09:36 | XMS_ITS | Encounter Summary ---
:1945 Author Organization [place] [address] Care Team Providers Name Role Phone Lovely Vicente MD Primary Care Provider Encounter Details Date Type Department Care Team Description 09/07/2017 Laboratory Appointment Lab 3L [facility] Hx of [facility] [place] [id number] Social History Tobacco Use Types Packs/Day Years [...] [facility] [address] CARLYLE [place], [place] 0[address] (Wo rk) 05/28/2022 Appointment Cardiology Zulma Dolan MD [facility] [address] [place] 0[address] (Wo rk) 05/28/2022 Laboratory Appointment Lab 05/28/2022 Office Visit Cardiology Zulma Dolan MD [facility] [place] [address] Liz Poole PA [facility] [place] [address] 06/10/2022 Office Visit Dermatology Laura Scherer MD [facility] ER DR [address]-DERMAT OLOGY [place], [place] 0375 (Wo rk) documented as of [...] PM EST) athologist Signature Thyroglobulin 1.[address] [facility] ng/mL [facility] Comment: Thyroglobulin levels may be unreliable [...] Address City/State/ZIP Code Phon e Number [place] [id number] TSH (09/07/2017 2:41 PM EST) P athologist Signature TSH 3.93 0.27 - 4.20 [facility] mlU/ML [facility] Specimen Anatomical Collection Method Collection Time Receive d Time (Source) Location / / Volume Laterality Blood specimen 09/07/2017 2:41 PM 018 2:46 (specimen) EST PM EST Resulting Agency Comment Spec In Lab Luz Prescott MD CHEMISTRY ORDERABLES Performing Organization Address City/State/[place] [address] documented in this encounter Visit Diagnoses Diagnosis Hx of papillary thyroid carcinoma Personal history of malignant neoplasm o f thyroid documented in this encounter Care Teams Manual Tester Relationship Specialty Start Date End Date Lovely Vicente MD PCP - General 04/16/[address] [place] [address] documented as of this encounter
--- OUTSIDE RECORDS SUMMARY | 2022-03-23 09:36 | XMS_ITS | Encounter Summary ---
:1945 Author Organization [facility] [place] [address] Care Team Providers Name Role Phone Lovely Vicente MD Primary Care Provider Encounter Details Date Type Department Care Team Description 08/26/2017 Hospital Encounter Vascular Lab at [facility], Athero embolism of foot, right; [place], [place] Delayed surgi nusrat wound healing, [place] [address] Social History Tobacco Use Types Packs/Day Years [...] Vitaliy Nobles MD [facility] DR TADEO [place], [place] 0375 (Wo rk) 05/28/2022 Appointment Cardiology Zulma Dolan MD [facility] [place], [place] 0[address] (Wo rk) 05/28/2022 Laboratory Appointment Lab 05/28/2022 Office Visit Cardiology Zulma Dolan MD [facility] [place] [address] Liz Poole PA [facility] [place] [address] 06/10/2022 Office Visit Dermatology Laura Scherer MD [facility] DR TE[address] GR[address]DERMAT OLOGY [place], [place] 0375 (Wo rk) documented as of [...] Value Ref Test Analysis Performed At [facility] Range Method Time Signature VB Text Department: Vascular Surgery Lab VASCUBASE Report Patient: [id number] (GREGORY HOANG) CPT: 65314 ICD10: T81.89XA;I75.021 Referring Physician: ARIK BLOOM ?? [...] encounter documented in this encounter Care Teams Kitchen Food Assembler Relationship Specialty Start Date End Date Lovely Vicente MD PCP - General 04/16/[address] [place] [address] documented as of this encounter
--- OUTSIDE RECORDS SUMMARY | 2022-03-23 09:36 | XMS_ITS | Encounter Summary ---
:1945 Author Organization [facility] [place] [address] Care Team Providers Name Role Phone Lovely Vicente MD Primary Care Provider Encounter Details Date Type Department Care Team Description 09/16/2017 Hospital [place] [address] Social History Tobacco Use Types Packs/Day [...] MD [facility] [address] TADEO [place], [place] 0375 (Wo rk) 05/28/2022 Appointment Cardiology Zulma Dolan MD [facility] [place], [place] 0375 (Wo rk) 05/28/2022 Laboratory Appointment Lab 05/28/2022 Office Visit Cardiology Zulma Dolan MD [facility] [place] [address] Liz Poole PA [facility] [place] [address] 06/10/2022 Office Visit Dermatology Laura Scherer MD [facility] DR TEJA GR-DERMAT OLOGY [place], [place] 0375 (Wo rk) documented as of this encounter Procedures Procedure Name Priority Date/Time Associated Diagnosis Comme nts SURGICAL PATHOLOGY Routine 09/16/2017 7:28 AM Res ults for this REPORT EST procedure are i n the results section. documented in this encounter Results Surgical Pathology Report (09/16/2017 7:28 AM EST) Component Value Ref Test Analysis Performed At Patholo gist Range Method Time Signature Surgical [id number] ? Location: [facility] Pathology RYAN Report The signing pathologist [...] [facility] Dept. of Pathology, [place], [place] CLINICAL INFORMATION Specimen Submitted: A - [...] Organization Address City/State/[place] [address] documented in this encounter Visit Diagnoses Not on filedocumented in this encounter Care Teams Communication Specialist Relationship Specialty Start Date End Date Lovely Vicente MD PCP - General 04/16/[address] [place] [address] documented as of this encounter
--- OUTSIDE RECORDS SUMMARY | 2022-03-23 09:36 | XMS_ITS | Encounter Summary ---
:1945 Author Organization [facility] [place] [address] Care Team Providers Name Role Phone Lovely Vicente MD Primary Care Provider Reason for Visit Reason Comments Follow-up Encounter Details Date Type Department Care Team Description 08/19/2017 Office Visit Cardiac Surgery at [facility], Jock S/P C ABG (coronary [facility], artery bypass graft) [facility] [place] CARDIOTHORACIC [address] SURGERY [phone] [place], [place] [address] Social History Tobacco [...] office. Best personal regards, Yuan [facility] MD [phone] documented in this encounter Plan of Treatment Upcoming Encounters Date Type Specialty Care Team Description 03/26/2022 Office Visit Cardiology Vitaliy Nobles MD [facility] DR [place]LE [place], [place] [address] (Wo rk) 05/28/2022 Appointment Cardiology Zulma Dolan MD [facility] [address] [place] 0[address] (Wo rk) 05/28/2022 Laboratory Appointment Lab 05/28/2022 Office Visit Cardiology Zulma Dolan MD [facility] [place] [address] Liz Poole PA [facility] [place] [address] 06/10/2022 Office Visit Dermatology Laura Scherer MD [facility] DR [address]-DERMAT [place], [place] 0[address] (Wo rk) documented as of [...] 454 ms MUSE SYSTEM (Bezet) Calculated P [place] 20 degrees MUSE SYSTEM Calculated R [place] -29 degrees MUSE SYSTEM Calculated T [place] 121 degrees MUSE SYSTEM INTERPRETATION Normal sinus rhythm MUSE SYSTEM Inferior infarct (cited on or before 25-JAN-2013) Anterior 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) T wave abnormality, consider lateral ischemia Abnormal ECG When compared with ECG of 06-AUG-2017 12:37, No signif icant change was found Confirmed by MD Luci, Taurus Braun ([id number]) on 08/19/2017 1 0:37:38 PM Specimen Anatomical [...] status documented in this encounter Care Teams Metallic Yarn Slitting Machine Operator Relationship Specialty Start Date End Date Lovely Vicente MD PCP - General 04/16/15 [facility] [address] [place] [address] documented as of this encounter
--- OUTSIDE RECORDS SUMMARY | 2022-03-23 09:36 | XMS_ITS | Encounter Summary ---
:1945 Author Organization [facility] [place] [address] Care Team Providers Name Role Phone Lovely Vicente MD Primary Care Provider Encounter Details Date Type Department Care Team Description 08/19/2017 Hospital Encounter XRay at [facility] Martha Teague, S/P CABG x [address] [facility] [place] [address] [place] [address] RD [phone] [facility] [place], [place] [address] (Wo rk) Social History [...] Cardiology Vitaliy Nobles MD [facility] CARDIOLOGY [place], [place] 0375 (Wo rk) 05/28/2022 Appointment Cardiology Zulma Dolan MD [facility] [address] [place], [place] [address] (Wo rk) 05/28/2022 Laboratory Appointment Lab 05/28/2022 Office Visit Cardiology Zulma Dolan MD [facility] [place] [address] Liz Poole PA [facility] [place] [address] 06/10/2022 Office Visit Dermatology Laura Scherer MD [facility] DR TEJA GR-DERMAT [place], [place] 0375 (Wo rk) documented as of [...] 2017 EXAMINATION: XR CHEST PA AND LATERAL (AppographyIC) CLINICAL HISTORY: CABG x 3 TECHNIQUE: PA [...] status documented in this encounter Care Teams Designer Architect Relationship Specialty Start Date End Date Lovely Vicente MD PCP - General 04/16/15 [address] [place] [address] documented as of this encounter
--- OUTSIDE RECORDS SUMMARY | 2022-03-23 09:36 | XMS_ITS | Encounter Summary ---
:1945 Author Organization [facility] Address [facility] [place] [address] Care Team Providers Name Role Phone Lovely Vicente MD Primary Care Provider Encounter Details Date Type Department Care Team Description 10/07/2017 Office Visit Cardiology at [facility] Danette Maxwell Chronic systolic heart failu re; [facility] A, INTERNET MERCHANT S/P CABG x 3; Drive [facility] On amiodarone therapy; [place], [place] Atrial fibrillation, unspecified type; [phone] CARDIOLOGY ASCVD (arteriosclerotic cardiovascular d isease) [phone] [place], [place] [address] Social History Tobacco Use Types [...] - documented in this encounter Progress Notes Offerman Danette A, INTERNET MERCHANT - 10/07/2017 11:20 AM EDT ID and [...] 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 [...] by Dr. Espino On IV antibiotics at [facility] Today: Mr. Fatima is accompanied by his [...] continue to see Dr. Bains well at [facility] and follow his wound on his right lower extremity. And she will continue to direct antibiotic treatment. Ihave asked that the echocardiogram results be faxed to Dr. Zurita at [facility]. 1. ASCVD Continue ASA, BB [...] and bone removal by Dr. Aguero at [facility]. Currently receiving IV antibiotics at [facility] ? Plan: 1. A review of the [...] Nobles MD [facility] DR TADEO [place], [place] 0375 (Wo rk) 05/28/2022 Appointment Cardiology Zulma Dolan MD [facility] [address] [place] 0[address] (Wo rk) 05/28/2022 Laboratory Appointment Lab 05/28/2022 Office Visit Cardiology Zulma Dolan MD [facility] [place] [address] Liz Poole PA [facility] [place] [address] 06/10/2022 Office Visit Dermatology Laura Scherer MD [facility] DR TEJA GR-DERMAT [place], [place] 0[address] (Wo rk) documented as of this encounter Results (ABNORMAL) Basic Metabolic Panel (non-fasting) (10/07/2017 8:48 AM EDT) P athologist Signature Glucose Lvl 99 65 - 199 [facility] mg/dL [facility] Comment: [...] [facility] Estimated GFR >60 >=60 [facility] Comment: The reported eGFR should be multiplied b y 1.2 for patients. The MDRD is not an appropriate measure o f renal function for patients with body mass extremes or in patients with acute kidney failure. http://MDxHealth.JEDI MIND/DHnkdep http://TruckTrack/DHMCnkf Specimen Anatomical Collection Method Collection Time Receive d Time (Source) Location / / Volume Laterality Blood specimen 10/07/2017 8:48 AM 018 8:50 (specimen) EDT AM EDT Resulting Agency Comment Spec In Lab Danette Maxwell APRN CHEMISTRY ORDERABLES Performing Organization Address City/State/ZIP Code Phon e Number [place] [phone] LAB[address] (ABNORMAL) pro-Brain Natriuretic Peptide (10/07/2017 8:48 AM EDT) P athologist Signature ProBNP 1,170 (H) <=125 [facility] pg/mL [facility] Specimen Anatomical Collection Method Collection Time Receive d Time (Source) Location / / Volume Laterality Blood specimen 10/07/2017 8:48 AM 018 8:50 (specimen) EDT AM EDT Resulting Agency Comment Spec In Lab Danette Maxwell APRN CHEMISTRY ORDERABLES Performing Organization Address City/State/[place] [address] documented in this encounter Visit Diagnoses Diagnosis Chronic systolic heart failure S/P CABG x 3 Postsurgical aortocoronary bypass status On amiodarone therapy Atrial fibrillation, unspecified type ASCVD (arteriosclerotic cardiovascular d isease) Unspecified cardiovascular disease documented in this encounter Care Teams Patternmaker Plaster And Plastic Relationship Specialty Start Date End Date Lovely Vicente MD PCP - General 04/16/[address] [place] [address] documented as of this encounter
--- OUTSIDE RECORDS SUMMARY | 2022-03-23 09:36 | XMS_ITS | Encounter Summary ---
:1945 Author Organization [facility] [place] [address] Care Team Providers Name Role Phone Lovely Vicente MD Primary Care Provider Encounter Details Date Type Department Care Team Description 09/07/2017 Office Visit Endocrinology at [facility] Maria Ines Stallings of [facility] [place] [address] CENTER [phone] ENDOCRINOLOGY DEPT [place], [place] 0[address] Social History Tobacco Use Types [...] [facility] ER DR TADEO [place], [place] 0[address] (Wo rk) 05/28/2022 Appointment Cardiology Zulma Dolan MD [facility] [place], [place] [address]375 (Wo rk) 05/28/2022 Laboratory Appointment Lab 05/28/2022 Office Visit Cardiology Zulma Dolan MD [facility] [place] [address] Liz Poole PA [facility] [place] [address] 06/10/2022 Office Visit Dermatology Laura Scherer MD [facility] DR TEJA GR-DERMAT [place], [place] 0375 (Wo rk) documented as of this encounter Visit Diagnoses Diagnosis Hx of papillary thyroid carcinoma Personal history of malignant neoplasm o f thyroid documented in this encounter Care Teams Javascript Engineer Relationship Specialty Start Date End Date Lovely Vicente MD PCP - General 04/16/[address] [place] [address] documented as of this encounter
--- OUTSIDE RECORDS SUMMARY | 2022-03-23 09:36 | XMS_ITS | Encounter Summary ---
:1945 Author Organization [facility] [place] [address] Care Team Providers Name Role Phone Lovely Vicente MD Primary Care Provider Reason for Visit Reason Onset Date Comments VNA Calls 08/30/2017 Encounter Details Date Type Department Care Team Description 08/30/2017 Telephone Vascular Surgery at [facility] Cora Reid RN VNA Calls [facility] [place] [address] Social History Tobacco Use Types Packs/Day [...] 08/30/2017 11:16 AM EST Caller: Alfonso at [facility] [phone] Reason for call: Changing his wound vac [...] had been in contact with [facility]'s Wound Care Nurse who advised him [...] Nobles MD [facility] DR THOMAS [place], [place] 0[address] (Wo rk) 05/28/2022 Appointment Cardiology Zulma Dolan MD [facility] Dr [place], [place] [address] (Wo rk) 05/28/2022 Laboratory Appointment Lab 05/28/2022 Office Visit Zulma Garrison MD [facility] [place] [address] Liz Poole PA [facility] [place] [address] 06/10/2022 Office Visit Dermatology Laura Scherer MD [facility] DR [address]-DERMAT [place], [place] 0375 (Wo rk) documented as of this encounter Visit Diagnoses Not on filedocumented in this encounter Care Teams Grades 1 6 Tutor Relationship Specialty Start Date End Date Lovely Vicente MD PCP - General 04/16/[address] [place] [address] documented as of this encounter
--- OUTSIDE RECORDS SUMMARY | 2022-03-23 09:36 | XMS_ITS | Encounter Summary ---
:1945 Author Organization [facility] [place] [address] Care Team Providers Name Role Phone Lovely Vicente MD Primary Care Provider Encounter Details Date Type Department Care Team Description 09/03/2017 Telephone Vascular Surgery at [facility] Ninfa Clark, [place] [address] Social History Tobacco Use Types Packs/Day [...] help with the discomfort of the change. Spinning And Winding Supervisor told the VNA that I would [...] MD [facility] [address] TADEO [place], [place] 0[address] (Wo rk) 05/28/2022 Appointment Cardiology Zulma Dolan MD [facility] [place], [place] 0[address] (Wo rk) 05/28/2022 Laboratory Appointment Lab 05/28/2022 Office Visit Cardiology Zulma Dolan MD [facility] [place] [address] Liz Poole PA [facility] [place] [address] 06/10/2022 Office Visit Dermatology Laura Scherer MD [facility] DR [address] RD-DERMAT O[place], [place] 0375 (Wo rk) documented as of this encounter Visit Diagnoses Not on filedocumented in this encounter Care Teams Switchboard And Control Room Operator Relationship Specialty Start Date End Date Lovely iVcente MD PCP - General 04/16/[address] [place] [address] documented as of this encounter
--- OUTSIDE RECORDS SUMMARY | 2022-03-23 09:36 | XMS_ITS | Encounter Summary ---
:1945 Author Organization [facility] [place] [address] Care Team Providers Name Role Phone Lovely Vicente MD Primary Care Provider Encounter Details Date Type Department Care Team Description 11/29/2017 Office Visit Cardiology at [facility] Annette Viveros Chronic systolic congestive heart failure; [facility] A, SYSTEM SALES CONSULTANT ASCVD (arteriosclerotic cardiovascular d isease); [facility] Cardiomyopathy, ischemic; [place], [place] PAD (peripheral artery disease) [address] CARDIOLOGY [phone] [place], [place] 0[address] Social History Tobacco Use Types [...] in this encounter Progress Notes Annette Viveros, SYSTEM SALES CONSULTANT - 11/29/2017 9:20 AM EDT ID and [...] 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 [...] using left greater saphenous vein (done at [facility]), debridement of right foot with wound vac [...] popliteal-pedal bypass at [facility] ? Plan: 1. A review of the [...] Nobles MD [facility] DR [place]LE [place], [place] [address] (Wo rk) 05/28/2022 Appointment Cardiology Zulma Dolan MD [facility] [address] [place] [address] (Wo rk) 05/28/2022 Laboratory Appointment Lab 05/28/2022 Office Visit Cardiology Zulma Dolan MD [facility] [place] [address] Liz Poole PA [facility] [place] [address] 06/10/2022 Office Visit Dermatology Laura Scherer MD [facility] ER DR TEJA GR-DERMAT [place], [place] 0[address] (Wo rk) documented as of this encounter Results Arterial Duplex Leg, Unil (11/29/2017 10:32 AM EDT) Component Value Ref Test Analysis Performed At [facility] Range Method Time Signature VB Text Department: Vascular Surgery Lab VASCUBASE Report Patient: [id number] (GREGORY FATIMA) CPT: 02590 ICD10: I72.4;I73.9 Referring Physician: ANNETTE VIVEROS ?? [...] Glucose Lvl 217 (H) 65 - 199 [facility] mg/dL [facility] Comment: Diabetes: >=200 mg/dL plus symp toms BUN 26 (H) 10 - 20 mg/dL [facility] Creatinine 0.96 0.80 - 1.50 mg/dL [facility] Sodium 137 135 - [...] Gap 17 (H) 5 - 15 mmol/L [facility] Calcium 8.5 8.5 - 10.5 mg/dL [facility] Estimated GFR >60 >=60 [facility] Comment: The reported eGFR should be multiplied b y 1.2 for patients. The MDRD is not an appropriate measure o f renal function for patients with body mass extremes or in patients with acute kidney failure. http://Walls Holding/DHnkdep http://Mila.Solar Components/DHMCnkf Specimen Anatomical Collection Method Collection Time Receive d Time (Source) Location / / Volume Laterality Blood specimen 11/29/2017 8:22 AM 018 8:29 (specimen) EDT AM EDT Resulting Agency Comment Spec In Lab Annette Viveros SYSTEM SALES CONSULTANT CHEMISTRY ORDERABLES Performing Organization Address City/State/[place] [address] (ABNORMAL) pro-Brain Natriuretic Peptide (11/29/2017 8:22 AM EDT) P athologist Signature ProBNP 1,769 (H) <=[address] [facility] pg/mL [facility] Specimen Anatomical Collection Method Collection Time Receive d Time (Source) Location / / Volume Laterality Blood specimen 11/29/2017 8:22 AM 018 8:29 (specimen) EDT AM EDT Resulting Agency Comment Spec In Lab Annette Viveros SYSTEM SALES CONSULTANT CHEMISTRY ORDERABLES Performing Organization Address City/[facility]/[place] [address] documented in this encounter Visit Diagnoses Diagnosis Chronic systolic congestive heart failur e Chronic systolic heart failure ASCVD (arteriosclerotic cardiovascular d isease) Unspecified cardiovascular disease Cardiomyopathy, ischemic Other specified forms of chronic ischemi c heart disease PAD (peripheral artery disease) Peripheral vascular disease, unspecified documented in this encounter Care Teams Executive Director Of Marketing Relationship Specialty Start Date End Date Lovely Vicente MD PCP - General 04/16/[address] [place] [address] documented as of this encounter
--- OUTSIDE RECORDS SUMMARY | 2022-03-23 09:36 | XMS_ITS | Encounter Summary ---
:1945 Author Organization [place] [address] Care Team Providers Name Role Phone Lovely Vicente MD Primary Care Provider Encounter Details Date Type Department Care Team Description 08/25/2017 Telephone Pain Management at [facility], [place] [address] Social History Tobacco Use Types Packs/Day [...] Management Center Preauthorization Request Patient: Don Fatima [id number] Fax received from [employer] denying prior authorization for Lidocaine Patches prescribed by Barbra Soares APRN. RX insurance plan: [employer] RX insurance telephone: [phone] Patient Diagnosis: right foot pain secondary to PVD and ischemia ? Previous medications attempted: Tylenol, Tramadol, Dilaudid Authorization/Reference number: [id number] _x_ denied, provider and patient informed _x_ appeal initiated by provider, patient informed Angeles Rodrigez, RN documented in this encounter Plan of Treatment Upcoming Encounters Date Type Specialty Care Team Description 03/26/2022 Office Visit Cardiology Vitaliy Nobles MD [facility] CARDIOLOGY [place], [place] [address] (Wo rk) 05/28/2022 Appointment Cardiology Zulma Dolan MD [facility] [place], [place] [address] (Wo rk) 05/28/2022 Laboratory Appointment Lab 05/28/2022 Office Visit Cardiology Zulma Dolan MD [facility] [place] [address] Liz Poole PA [facility] [place] [address] 06/10/2022 Office Visit Dermatology Laura Scherer MD [facility] [address] [place], [place] [address] (Wo rk) documented as of this encounter Visit Diagnoses Not on filedocumented in this encounter Care Teams Pharmacy Aide Relationship Specialty Start Date End Date Lovely Vicente MD PCP - General 04/16/[address] [place] [address] documented as of this encounter
--- OUTSIDE RECORDS SUMMARY | 2022-03-23 09:36 | XMS_ITS | Encounter Summary ---
:1945 Author Organization [facility] [place] [address] Care Team Providers Name Role Phone Lovely Vicente MD Primary Care Provider Encounter Details Date Type Department Care Team Description 09/06/2017 Orders Only Vascular Surgery at [facility] Ninfa Clark, [facility] [place] [address] Social History Tobacco Use Types Packs/Day [...] MD [facility] [address] [place], [place] [address] (Wo rk) 05/28/2022 Appointment Cardiology Zulma Dolan MD [facility] [address] [place] [address] (Wo rk) 05/28/2022 Laboratory Appointment Lab 05/28/2022 Office Visit Cardiology Zulma Dolan MD [facility] [place] [address] Liz Poole PA [facility] [place] [address] 06/10/2022 Office Visit Dermatology Laura Scherer MD [facility] [address] [place], [place] [address] (Wo rk) documented as of this encounter Visit Diagnoses Not on filedocumented in this encounter Care Teams Flat Lock Operator Relationship Specialty Start Date End Date Lovely Vicente MD PCP - General 04/16/[address] [place] [address] documented as of this encounter
--- OUTSIDE RECORDS SUMMARY | 2022-03-23 09:36 | XMS_ITS | Encounter Summary ---
:1945 Author Organization [facility] Address [address] [address] [place] [address] Care Team Providers Name Role Phone Lovely Vicente MD Primary Care Provider Reason for Referral Diagnostic Test (Routine) - Specialty Diagnoses / Procedures Referred By Contact Refer red To Contact Cardiology Diagnoses Chronic systolic heart failure Danette Maxwell APRN [facility] Non-Inv Card Lab Procedures Echocardiogram Transthoracic(Leb) [facility] [place] [address] [place] [address] Referral ID Status Reason Start Date Expiration Visits Visits Date Requested Authorized [id number] Specialty 08/15/2018 08/15/2018 1 1 Service Requested Encounter Details Date Type Department Care Team Description 04/18/2018 Office Visit Cardiology at [facility] Danette Maxwell Chronic systolic heart failu re; [facility] STACIE Gomes On amiodarone therapy; [facility] Ischemic cardiomyopathy; [place], [place] DR [address]NOFRE (arteriosclerotic cardiovascular d isease) [phone] CARDIOLOGY [phone] [place], [place] [address] Social History Tobacco Use Types Packs/Day Years [...] in this encounter Progress Notes Danette Maxwell, TEAM SPORTS SALES ASSOCIATE - 04/18/2018 10:40 AM EDT ID and [...] Nobles MD [facility] CARDIOLOGY [place], [place] [address] (Wo rk) 05/28/2022 Appointment Cardiology Zulma Dolan MD [facility] [place], [place] [address] (Wo rk) 05/28/2022 Laboratory Appointment Lab 05/28/2022 Office Visit Cardiology Zulma Dolan MD [facility] [place] [address] Liz Poole PA [facility] [place] [address] 06/10/2022 Office Visit Dermatology Laura Scherer MD [facility] [address] [place], [place] [address] (Wo rk) documented as of this encounter Results ECHOCARDIOGRAM COMPLETE W CONTRAST (08/15/2018 7:55 AM EST) P athologist Signature EF 35 [employer] SYSTEM Specimen (Source) Anatomical Location Collection Method / Collectio n Time Received Time / Laterality Volume 08/15/2018 Narrative [facility] - 08/15/2018 8:18 AM EST Procedure: ?Transthoracic Echocardiogram Patient: ?NATALYA JENKINS E ? (Age): 1945(73y) Med Rec#: ? [id number] ?Sex: ?M ? Site Loc: ? [facility] ?Ht / Wt: ??172(cm)/81(kg) Pt. Loc: ?Echo Lab ?BSA: ?1.94 Study Date: ?? 08/15/2018 ?Pt. Type: Outpatient Tape: ? Referring: MARY ELLEN Reading: Scott Ortega ([id number]) Configuration Manager: Laura Sargent Diagnosis: *Chronic systolic (congestive) heart [...] E-wave Vmax ?1.2 ?m/sec ? MV deceleration [id number] ? msec ? MV A-wave Vmax ?0.7 [...] ? Mid-Inferior ?Hypokinetic ? Mid-Inferoseptal ?Hypokinetic ? [place]-Septal ? Akinetic ? [place]-Anterior ? Hypokinetic ? [place]-Lateral ?Akinetic ? [place]-Inferior ? Hypokinetic ? [place]-Tip ?Akinetic ? This report has been electronically sign ed by: _ Scott Ortega M.D. ? 08/15/2018 08:17:26 Images reviewed and interpretation verif ied [facility] Cardiac Ultrasound Laboratory Procedure Note Scott Ortega MD - 08/15/2018Format ting of this note might be different from the original. Procedure: Transthoracic Echocardiogram Patient: NATALYA MCBRIDE(Age): [birth year]73y) Med Rec#: [id number] Sex: M Site Loc: [facility] Ht / Wt: 172(cm)/81(kg) Pt. Loc: Echo Lab BSA: 1.94 Study Date: 08/15/2018 Pt. Type: Outpati ent Tape: Referring: MARY ELLEN Reading: Scott Ortega ([id number]) Configuration Manager: Laura Sargent Diagnosis: *Chronic systolic (congestive) heart [...] MV E-wave Vmax 1.2 m/sec MV deceleration [id number] msec MV A-wave Vmax 0.7 m/sec MV [...] Akinetic Mid-Posterolateral [place]kin[place] Mid-Inferior Hypokinetic Mid-Inferoseptal Hypokinetic [place]-Septal Akinetic [place]-Anterior Hypokinetic [place]-Lateral Akinetic [place]-Inferior Hypokinetic [place]-Tip Akinetic This report has been electronically sign ed by: _ Scott Ortega M.D. 08/15/2018 08:17: 26 Images reviewed and interpretation elvie hwang [facility] Cardiac Ultrasound Laboratory Danette Maxwell APRN ECHO ORDERABLES Performing Organization Address City/State/ZIP Code Phon e Number [facility] (ABNORMAL) Basic Metabolic Panel (non-fasting) (04/18/2018 9:19 AM EDT) P athologist Signature Glucose Lvl 167 65 - 199 [facility] mg/dL [facility] Comment: Diabetes: >=200 mg/dL plus symp toms BUN 18 10 - 20 mg/dL [facility] Creatinine 1.19 0.80 - 1.50 mg/dL [facility] Sodium 147 (H) 135 - 145 mmol/L [facility] [...] mg/dL [facility] Estimated GFR 61 >=60 mL/min/1.73 m?? [facility] Comment: The eGFR was calculated using the CKD-EP I equation. As with all creatinine based estimates of kidney function, eGFR values calculated with the CKD-EPI equation are not accurate in patients wi th acute kidney failure, extremes of body mass or the acutely ill. [email or web address] eGFR 70 >=60 mL/min/1.73 m?? [facility] Comment: The eGFR was calculated using the CKD-EP I equation. As with all creatinine based estimates of kidney function, eGFR values calculated with the CKD-EPI equation are not accurate in patients wi th acute kidney failure, extremes of body mass or the acutely ill. [email or web address] Specimen Anatomical Collection Method Collection Time Receive d Time (Source) Location / / Volume Laterality Blood specimen 04/18/2018 9:19 AM 018 9:34 (specimen) EDT AM EDT Resulting Agency Comment Spec In Lab Danette Maxwell APRN CHEMISTRY ORDERABLES Performing Organization Address City/State/ZIP Code Phon e Number [address] (ABNORMAL) pro-Brain Natriuretic Peptide (04/18/2018 9:19 AM EDT) P athologist Signature ProBNP 2,199 (H) <=125 [facility] pg/mL [facility] Specimen Anatomical Collection Method Collection Time Receive d Time (Source) Location / / Volume Laterality Blood specimen 04/18/2018 9:19 AM 018 9:34 (specimen) EDT AM EDT Resulting Agency Comment Spec In Lab Danette Maxwell APRN CHEMISTRY ORDERABLES Performing Organization Address City/[facility]/[place] [address] documented in this encounter Visit Diagnoses Diagnosis Chronic systolic heart failure On amiodarone therapy Ischemic cardiomyopathy Other specified forms of chronic ischemi c heart disease ASCVD (arteriosclerotic cardiovascular d isease) Unspecified cardiovascular disease Chronic systolic heart failure documented in this encounter Care Teams Doctor Of Nursing Practice Relationship Specialty Start Date End Date Lovely Vicente MD PCP - General 04/16/[address] [place] [address] documented as of this encounter
--- OUTSIDE RECORDS SUMMARY | 2022-03-23 09:37 | XMS_ITS | Encounter Summary ---
:1945 [place] [address] Care Team Providers Name Role Phone Lovely Vicente MD Primary Care Provider Reason for Visit Auth/Cert Specialty Diagnoses / Procedures Referred By Contact Refer red To Contact Diagnoses Critical lower limb ischemia CELLULITIS RT FOOT Procedures EMERGENCY Referral ID Status Reason Start Date Expiration Date Visits Requ ested Visits Authorized [id number] 1 1 Encounter Details Date Type Department Care Team Description 08/06/2017 - Hospital Encounter 5 Yonathan Oneill lower limb ischemia; 08/16/2017 Su Flores MD Ischemic foot Hospital [facility] [address] [place] [phone] Social History Tobacco Use Types Packs/Day Years [...] 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 0.94 ??Stafford-Biphasic ? Posterior Tibial (Ankle) Artery ??154 ? 1.10 ??Stafford-Biphasic ? Fourth Toe ? 67 ?0.48 ?? [...] the foot. Discharge Conditions/Prognosis: Good Discharge to: [facility] Rehab Discharge Medications: Your Medications [...] For any problems or questions please call [phone] ZELDA Smith, studio hand Nurse Clinician For issues on weeknights after 5pm and weekends please call [phone] and ask for the Vascular Fellow transportation maintenance specialist. General Instructions None Future Appointments and Orders Future Appointments Provider Department Dept Phone 08/26/2017 4:00 PM Aurelia Rivera PA [facility] [place] [phone] 09/07/2017 3:00 PM LAB, THREE L Lab 3L [facility] [phone] 09/07/2017 4:00 PM Luz Prescott MD Endocrinology [facility] [place] [phone] 09/09/2017 8:00 AM Barbra Soares APRN Pain Management [facility] [place] [phone] Please bring a list of your current [...] For any problems or questions please call [phone] ZELDA Smith, studio hand Nurse Clinician For issues on weeknights after 5pm and weekends please call [phone] and ask for the Vascular Fellow transportation maintenance specialist. documented in this encounter Medications at [...] of Care Management Discharge Note Patient Destination: [facility] ([facility]) [address] [place] [address] Transportation: with (at bedside) Time of Discharge: by 12 noon Level of Care: swing Patient Aware: yes Family Notified: yes Md to call report to: Yissel Quintero SCALEMAKER already called RN to call report to: [phone] Shirin Wolf Office of Care Management Pager [phone] Shirin Wolf RN - 08/16/2017 10:50 AM EST [facility] has offered pt swing bed. Pt and accept bed. will transport via car. SCALEMAKER Yissel Quintero aware; d/c paperwork will be completed by 12 noon. [facility] requests pt arrival by 1400 today; SCALEMAKER, RN, and family aware. SCALEMAKER called [facility] and was told that they prefer pt to arrive with wound vac dressing applied but clamped. SCALEMAKER applied new wound vac dressing. RN has [facility] number to call report. PASSR completed; SCALEMAKER paged to request provider signature in highlighted space. Indigo from [facility] notified via email that home wound vac now cancelled; [facility] has picked up from room and order cancelled. Packet started and provided to community organization worker. Medicare important message explained to patient, patient signed. Copy provided to patient and signature page to OCM for inclusion in pt EMR. Radha Georges - 08/16/2017 10:34 AM EST Office of Care Management/Senior Qa Analyst Patient Name: Gregory Hoang : 1945 Patient has been offered a swing bed at [facility]. The patient will be transported by private transportation. No MD to MD report necessary Please call Nursing Report to [phone], ask for gut sorter. Info to accompany patient: Narcotic Prescriptions Copies of Medication Administration Records and IV sheets for past 10 days. Plan: Senior Qa Analyst will be available to the patient and Airline Operations Agent-RN and/or Specialty Development Consultant for further assistance. Patient will be discharged to: [place] [phone] Radha Powers, Senior Qa Analyst Mira Black, VAMSI - 08/15/2017 10:05 PM EST [address] Flores to ask if he wanted to hold metoprolol dose. BP 95/58. OK to hold this dose Courtney Brito - 08/15/2017 3:26 PM EST Office of Care Management(OCM)/Senior Qa Analyst(RS)/ D/C Planning re : Patient is medically ready for d/c today. RS has been in contact with [facility] to see if they could offer a bed. [facility] is still reviewing the case and need their MD to review chart prior to accepting or declining. OCM team needs to check in with [facility] tomorrow to check on status. 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 Vac in place. Rehab referrals ongoing. Can ambulate in hallway. Change VAC at bedside today. Naty Colindres RN - 08/14/2017 1:33 PM EST Patient Name: Gregory Hoang Patient Age: 72 y.o. Birthdate: 1945 Admit date: 08/06/2017 Attending Physician: Yonathan Smith MD We want him to go to a place for intensive therapy and not at a [facility] where he will be just sitting there and not getting any therapy. . Contacted by direct care RN, who said that patient and would like information about patient's referral to: [facility] PHONE: [phone] FAX: [phone] CM spoke with RS who said that [...] rehab. Await recommendations from PT. Covering pager #[phone]. 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 Oncology Pharmacist Kaitlin Saha, RN Pager #[phone] Payam Rosales - 08/13/2017 2:37 PM EST Mobile Device Developer Encounter Note Patient Name: Gregory Hoang : [id number] MR#: [id number] Admit Date: 08/06/2017 1:41 PM Hospital Day 7 days Narrative: Visited to introduce and assess acceptance of Mobile Device Developer services. Pt was awake, alert, oriented and in chair and family was there. Assessment:Patient coping positively with stresses of illness/hospitalization at this time. Pt says that he is hoping to get better and his family was there. Pt says that he has family care and supportand taking one day at time. Intervention and Outcome: Provided emotional support and encouraging presence. 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 A letter describing our affiliations was reviewed with them and theywere educated about their right to choose where referrals are placed. Patient requests referral to [facility]. PHONE: [phone] FAX: [phone]. And Home NPWT (Negative Pressure Wound Therapy) aka wound vac device made available to pt. Serial # confirmed. Reviewed [facility] Proof of Delivery/Assignment of Benefits Statement(POD/AOB) Form w patient or authorized agent signing on behalf of patient. Copy of POD/AOB provided to pt and other copy faxed to [employer] @ fax# [phone] Expected date of discharge: 08/12/2017. 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 Vascular resident transportation maintenance specialist and will forward result to the team prior to rounds. 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 Completion RLE angiogram 6. L DIELECTRIC TESTING MACHINE OPERATOR angiogram 7. 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 - L DIELECTRIC TESTING MACHINE OPERATOR angriogram demonstrated: High femoral bifurcation over the proximal half of the femoral head. L DIELECTRIC TESTING MACHINE OPERATOR access in the distal L DIELECTRIC TESTING MACHINE OPERATOR. - Closure device: Mynx Technical [...] for a 45cm 5F Destination. V18 and Zalma and QuickCross catheters were used to select [...] 5F. A stationed picture of the L DIELECTRIC TESTING MACHINE OPERATOR was performed as the patient was noted to have a very high bifurcation. Access appeared in the distal R DIELECTRIC TESTING MACHINE OPERATOR. Closure and sheath removal was [...] PM EST 1440 report called to 5 [place] nurse Tessa AGUSTIN documented in this encounter [...] with pt and pt's spouse. Discharge to [facility]. Goal: Individualization & Mutuality Outcome: [...] sit/sit to supine -- Bed Mobility Goal, Juniata Level independent -- Bed Mobility Goal, Date [...] days -- Transfer Training Goal, Activity Type zsb-uw-pkjtu/kwxrf-ix-wgv -- Transfer Train Goal, Juniata Level conditional independence -- Transfer Train Goal, [...] cabello within reach, Hourly rounding by RN/COMPUTER PROGRAMMING SUPERVISOR. Bed alarm / Chair alarm. Patient-specific fall [...] Operative Note Patient Name: Gregory Hoang : [id number] MR#: [id number] Case Date: 08/09/2017 Surgeon: Surgeon(s) and Role: [...] 2.5x80 5. Completion RLE angiogram 6. L DIELECTRIC TESTING MACHINE OPERATOR angiogram 7. Mynx closure Precautions/Restrictions: [...] other (see comments) (or swing bed) Pager: [phone] BASSAM ELIAS, PT 08/14/2017 Inpatient Physical Therapy [...] to Achieve by discharge Gait Training Goal, Juniata Level conditional independence;set up required Gait Training [...] these facilities over the weekend except for [facility]. CM spoke with [facility] CM Drea Sandhu, VAMSI who said that they do not anticipate any beds over the weekend. Reviewed with patient/ that they need to be aware that patient will need to take the first bed offered at the facilities that they make referrals to. Their choices are: 1- [facility] PHONE: [phone] FAX: [phone] 2- [facility] ([facility]) [address] [place] [address] 3- [facility])([facility]) [address] [place] [address] I have discussed Medicare/Private Insurance [...] RS/CM on Wednesday to follow-up. Covering pager #[phone] for today. Plan of Care - Henrique [...] with additional findings of pseudoaneurysm on R DIELECTRIC TESTING MACHINE OPERATOR and bilateral anterior tibial artery [...] an outpatient once discharged. Have patient call [phone] to set up an appointment. Follow-up: Dermatology will sign-off for now. Please do not hesitate to contact us if you have any questions orconcerns. Impression and Recommendations discussed with primary team on 08/13/2017. Karo Henderson MD Resident in Dermatology Section of Dermatology, Department of Surgery [facility] Pager [phone] Patient seen and evaluated with staff Ultimate Hoops Scoreboard Operator: Halima Cordero MD Section of Dermatology [facility] Level of Resident Supervision: Direct [...] 2.5x80 5. Completion RLE angiogram 6. L DIELECTRIC TESTING MACHINE OPERATOR angiogram 7. Mynx closure Active [...] home with home health ([facility] PT[facility]) Pager: [phone] YASIR TELLO OT 08/12/2017 Occupational Therapy Rehabilitation [...] 2.5x80 5. Completion RLE angiogram 6. L DIELECTRIC TESTING MACHINE OPERATOR angiogram 7. Mynx closure Past [...] with 24/7 assistance and maximal services) Pager: [phone] NICHOLAS MORA, PT 08/12/2017 Physical Therapy Rehabilitation [...] sit/sit to supine -- Bed Mobility Goal, Juniata Level independent -- Bed Mobility Goal, Outcome Achieved -- goal ongoing Goal: Gait Training Goal Stand Alone Therapy Goal Outcome: Ongoing (Interventions Implemented as Appropriate) 08/11/17 1310 08/12/17 1510 Gait Training Goal Gait Training Goal, Date Established 08/11/17 -- Gait Training Goal, Time to Achieve 5 - 7 days -- Gait Training Goal, Juniata Level conditional independence -- Gait Training Goal, [...] days -- Transfer Training Goal, Activity Type iwh-ze-qaszx/yrvnv-jc-kgv -- Transfer Train Goal, Juniata Level conditional independence -- Transfer Training Goal, [...] Operative Note Patient Name: Gregory Hoang : [id number] MR#: [id number] Case Date: 08/11/2017 Surgeon: Surgeon(s) and Role: [...] 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 Completion RLE angiogram 6. L DIELECTRIC TESTING MACHINE OPERATOR angiogram 7. Mynx closure He [...] Anticipated Discharge Disposition: inpatient rehabilitation facility Pager: [phone] LAWRENCE GONZALEZ, PT 08/11/2017 Physical Therapy Rehabilitation [...] to sit/sit to supine Bed Mobility Goal, Juniata Level independent Goal: Gait Training Goal Stand Alone Therapy Goal Outcome: Ongoing (Interventions Implemented as Appropriate) 08/11/17 1310 Gait Training Goal Gait Training Goal, Date Established 08/11/17 Gait Training Goal, Time to Achieve 5 - 7 days Gait Training Goal, Juniata Level conditional independence Gait Training Goal, Assist [...] 7 days Transfer Training Goal, Activity Type zsj-wn-fvlum/tguor-ux-ldn Transfer Train Goal, Juniata Level conditional independence Plan of [facility] Annetta Sandoval RN - 08/11/2017 7:21 [...] Surveillance: Bed locked in low position, call cablelo within reach, purposeful hourly rounding, clutter free [...] cabello within reach, Hourly rounding by RN/COMPUTER PROGRAMMING SUPERVISOR. Bed alarm / Chair alarm. ? Patient-specific [...] Planning: on file Kisha Hoang [facility] [phone] Current Coping/Education/Information Needs: pt and spouse state [...] Health/Prescription Coverage: Primary Insurance: MEDICARE Secondary Insurance: [employer] [facility] Prescription Coverage: See above Preferred Pharmacy: [facility] Other: N/A Primary Care Provider: Lovely Vicente MD [phone] Patient/Caregiver Goals of Treatment: Patient plans to [...] of care planning. Kaitlin Saha RN Pager: [phone] Plan of Care - Melba Jaramillo RN [...] Overview Goal: Plan of Care Review 08/08/17 5434 Coping/Psychosocial Plan Of Care Reviewed With patient [...] cabello within reach, Hourly rounding by RN/COMPUTER PROGRAMMING SUPERVISOR. Bed alarm / Chair alarm. Patient-specific fall [...] at bedside and MD TEAM Carrying pager [phone] contacted (via Radio page) and notified of [...] MD [facility] CARDIOLOGY [place], [place] [address] (Wo rk) 05/28/2022 Appointment Cardiology Zulma Dolan MD [facility] [place], [place] [address] (Wo rk) 05/28/2022 Laboratory Appointment Lab 05/28/2022 Office Visit Cardiology Zulma Dolan MD [facility] [place] [address] Liz Poole PA [facility] [place] [address] 06/10/2022 Office Visit Dermatology Laura Scherer MD [facility] DR TEJA [facility] [place], [place] [address] (Wo rk) documented [...] section. TYPE AND SCREEN Routine 08/09/2017 1:10 ([facility]/SHANDA) AM EST BASIC METABOLIC [...] 199 [facility] mg/dL [facility] Comment: Supplemental ranges: <140 mg/dL before meals <180 mg/dL all other times of the day Specimen Anatomical Collection Method Collection Time Receive d Time (Source) Location / / Volume Laterality Blood specimen 08/16/2017 7:28 AM 018 7:28 (specimen) EST AM EST Yonathan Smith MD POINT OF CARE TEST ORDERABLE S Performing Organization Address City/State/[place] [address] (ABNORMAL) Differential, Automated (08/16/2017 5:08 AM EST) [facility] Method Time Signature Neutrophils % 73.9 % [facility] Neutr Abs (ANC) 5.37 1.70 - [facility] 6.10 [facility] x10(3)/[facility] LABORATORY Lymphocytes % 10.1 % [facility] Lymphocytes Abs 0.7 (L) 0.9 - 3.2 [facility] x10(3)/[facility] LABORATORY Monocytes % 10.1 % [facility] Monocyte Abs 0.7 0.3 - 0.9 [facility] x10(3)/[facility] LABORATORY Eosinophils % 5.1 % [facility] Eosinophils Abs 0.4 0.0 - 0.4 [facility] x10(3)/[facility] LABORATORY Basophils % 0.4 % [facility] Basophils Abs 0.0 0.0 - 0.1 [facility] x10(3)/[facility] LABORATORY Immature Gran [...] Gran Abs 0.03 0.00 - 0.04 x10(3)/[facility] Specimen Anatomical Collection Method Collection Time Receive d Time (Source) Location / / Volume Laterality Blood specimen 08/16/2017 5:08 AM 018 5:20 (specimen) EST AM EST Resulting Agency Comment Spec In Lab Yonathan Smith MD HEMATOLOGY ORDERABLES Performing Organization Address City/State/[place] [address] (ABNORMAL) Hemogram (08/16/2017 5:08 AM EST) Analysis Performed At Patho logist Time Signature WBC 7.3 4.0 - 9.5 [facility] LABORATORY RBC 3.36 (L) 4.58 - [place] [facility] 5.54 [facility] x10(6)/[facility] LABORATORY Hemoglobin 9.7 (L) 13.7 - [place] [facility] 16.5 gm/dL [facility] Hematocrit 30.3 (L) 40.5 - [facility] 48.5 % [facility] MCV 90.2 82.9 - [facility] 93.1 [facility] LABORATORY MCH 28.9 27.5 - [place] [facility] 32.1 pg [facility] MCHC 32.0 32.0 - [place] [facility] 35.7 gm/dL [facility] Platelets 282 145 - 357 [facility] x[facility](3[facility] LABORATORY RDWSD 53.9 (H) 36.0 - [facility] 45.0 [facility] LABORATORY RDWCV 16.5 (H) 11.4 - [facility] SU 13.8 % [facility] MPV 9.0 7.6 - 12.9 [facility] LABORATORY nRBC % Auto 0.0 % [facility] nRBC Abs Auto 0.000 0.000 - [place] [facility] 0.000 [facility] x10(3)/[facility] LABORATORY Specimen Anatomical Collection Method Collection Time Receive d Time (Source) Location / / Volume Laterality Blood specimen 08/16/2017 5:08 AM 018 5:20 (specimen) EST AM EST Resulting Agency Comment Spec In Lab Yonathan Smith MD HEMATOLOGY ORDERABLES Performing Organization Address City/State/[place] [address] (ABNORMAL) Basic Metabolic Panel (non-fasting) (08/16/2017 5:08 AM EST) athologist Signature Glucose Lvl 141 65 - 199 [facility] mg/dL [facility] Comment: Diabetes: [...] CENTER LABORATORY Estimated GFR 57 (L) >=60 [facility] Comment: The reported eGFR should be multiplied b y 1.2 for patients. The MDRD is not an appropriate measure o f renal function for patients with body mass extremes or in patients with acute kidney failure. http://Nixle.RedBee/DHnkdep http://[employer] Systems/DHMCnkf Specimen Anatomical Collection Method Collection Time Receive d Time (Source) Location / / Volume Laterality Blood specimen 08/16/2017 5:08 AM 018 5:20 (specimen) EST AM EST Resulting Agency Comment Spec In Lab Yonathan Smith MD CHEMISTRY ORDERABLES Performing Organization Address City/State/[place] [address] (ABNORMAL) Prothrombin Time (08/16/2017 [...] Smith MD HEMATOLOGY ORDERABLES Performing Organization Address City/[facility]/ZIP Code Phon e Number [address] POCT Glucose (08/16/2017 4:09 AM EST) athologist Signature POC Glucose 147 65 - 199 [facility] mg/dL [facility] Comment: Supplemental [...] Address City/State/ZIP Code Phon e Number [address] POCT Glucose (08/15/2017 11:56 PM EST) athologist Signature POC Glucose 176 65 - 199 [facility] mg/dL [facility] Comment: Supplemental [...] Address City/State/[place] [address] POCT Glucose (08/15/2017 8:05 PM EST) athologist Signature POC Glucose 136 65 - 199 [place] [facility] mg/dL [facility] Comment: Supplemental [...] City/[facility]/[place] [address] (ABNORMAL) POCT Glucose (08/15/2017 4:50 PM EST) athologist Signature POC Glucose 232 (H) 65 - 199 [facility] SU mg/dL [facility] Comment: Supplemental [...] Address City/State/[place] [address] POCT Glucose (08/15/2017 12:04 PM EST) athologist Signature POC Glucose 135 65 - 199 [place] [facility] mg/dL [facility] Comment: Supplemental [...] City/State/ZIP Code Phon e Number [place] [id number] [facility] [address] POCT Glucose (08/15/2017 7:36 AM EST) P athologist Signature POC Glucose 124 65 - 199 [facility] mg/dL [facility] Comment: Supplemental [...] Address City/State/ZIP Code Phon e Number [address] (ABNORMAL) Differential, Automated (08/15/2017 6:22 AM EST) Patholo gist Method Time Signature Neutrophils % 76.1 % [facility] Neutr Abs (ANC) 6.62 (H) 1.70 - [facility] 6.10 [facility] x10(3)/[facility] L LABORATORY Lymphocytes % 9.3 % [facility] Lymphocytes Abs 0.8 (L) 0.9 - 3.2 [facility] x10(3)/[facility] LABORATORY Monocytes % 9.4 % [facility] Monocyte Abs 0.8 0.3 - 0.9 [facility] x10(3)/[facility] LABORATORY Eosinophils % 4.0 % [facility] Eosinophils Abs 0.4 0.0 - 0.4 [facility] x10(3)/[facility] LABORATORY Basophils % 0.6 % [facility] Basophils Abs 0.0 0.0 - 0.1 [facility] x10(3)/[facility] LABORATORY Immature Gran % 0.60 % [facility] [...] Organization Address City/State/[place] [address] (ABNORMAL) Hemogram (08/15/2017 6:22 AM EST) Analysis Performed At Patho logist Time Signature WBC 8.7 4.0 - 9.5 [facility] x10(3)/[facility] LABORATORY RBC 3.21 (L) 4.58 - [facility] SU 5.54 [facility] x10(6)/[facility] LABORATORY Hemoglobin 9.1 (L) 13.7 - [facility] 16.5 gm/dL [facility] Hematocrit 29.0 (L) 40.5 - [facility] 48.[facility] % [facility] MCV 90.3 82.9 - [facility] 93.1 [facility] LABORATORY MCH 28.3 27.5 - [facility] SU 32.1 pg [facility] MCHC 31.4 (L) 32.0 - [facility] 35.7 gm/dL [facility] Platelets 254 145 - 357 [facility] x10(3)/[facility] LABORATORY RDWSD 53.9 (H) 36.0 - [facility] SU 45.0 [facility] LABORATORY RDWCV 16.3 (H) 11.4 - [facility] SU 13.8 % [facility] MPV 8.8 7.6 - 12.9 [facility] LABORATORY nRBC % Auto 0.0 % [facility] nRBC Abs Auto 0.000 0.000 - [facility] SU 0.000 [facility] x10(3)/[facility] LABORATORY Specimen Anatomical Collection Method Collection Time Receive d Time (Source) Location / / Volume Laterality Blood specimen 08/15/2017 6:22 AM 018 6:33 (specimen) EST AM EST Resulting Agency Comment Spec In Lab Yonathan Smith MD HEMATOLOGY ORDERABLES Performing Organization Address City/State/[place] [address] (ABNORMAL) Basic Metabolic Panel (non-fasting) (08/15/2017 6:22 AM EST) athologist Signature Glucose Lvl 118 65 - 199 [facility] mg/dL [facility] Comment: Diabetes: [...] or in patients with acute kidney failure. [email or web address] [email or web address] Specimen Anatomical Collection Method Collection Time Receive d Time (Source) Location / / Volume Laterality Blood specimen 08/15/2017 6:22 AM 018 6:33 (specimen) EST AM EST Resulting Agency Comment Spec In Lab Yonathan Smith MD CHEMISTRY ORDERABLES Performing Organization Address City/[facility]/[place] [address] (ABNORMAL) Prothrombin Time (08/15/2017 [...] Smith MD HEMATOLOGY ORDERABLES Performing Organization Address City/[facility]/[place] [address] POCT Glucose (08/15/2017 4:33 AM EST) athologist Signature POC Glucose 164 65 - 199 [facility] mg/dL [facility] Comment: Supplemental [...] City/[facility]/[place] [address] POCT Glucose (08/15/2017 12:12 AM EST) athologist Signature POC Glucose 89 65 - 199 [facility] mg/dL [facility] Comment: Supplemental [...] Address City/State/[place] [address] (ABNORMAL) POCT Glucose (08/14/2017 8:07 PM EST) athologist Signature POC Glucose 204 (H) 65 - 199 [facility] mg/dL [facility] Comment: Supplemental [...] Address City/State/[place] [address] POCT Glucose (08/14/2017 5:11 PM EST) athologist Signature POC Glucose 174 65 - 199 [facility] mg/dL [facility] Comment: Supplemental [...] Address City/State/[place] [address] POCT Glucose (08/14/2017 12:10 PM EST) athologist Signature POC Glucose 141 65 - 199 [facility] mg/dL [facility] Comment: Supplemental [...] Address City/State/ZIP Code Phon e Number [address] POCT Glucose (08/14/2017 8:07 AM EST) athologist [facility] POC Glucose 158 65 - 199 [facility] mg/dL [facility] Comment: Supplemental [...] Address City/State/ZIP Code Phon e Number [address] (ABNORMAL) Differential, Automated (08/14/2017 4:52 AM EST) [facility] gist Method Time Signature Neutrophils % 78.6 % [facility] Neutr Abs (ANC) 7.70 (H) 1.70 - [facility] 6.10 [facility] x10(3)/[facility] L LABORATORY Lymphocytes % 7.8 % [facility] Lymphocytes Abs 0.8 (L) 0.9 - 3.2 [facility] x10(3)/[facility] LABORATORY Monocytes % 8.8 % [facility] Monocyte Abs 0.9 0.3 - 0.9 [facility] x10(3)/[facility] LABORATORY Eosinophils % 4.0 % [facility] Eosinophils Abs 0.4 0.0 - 0.4 [facility] x10(3)/[facility] LABORATORY Basophils % 0.5 % [facility] Basophils Abs 0.0 0.0 - 0.1 [facility] x10(3)/[facility] LABORATORY Immature Gran % 0.30 % [facility] [...] Gran Abs 0.03 0.00 - 0.04 x10(3)/[facility] MAR Y [facility] LABORATORY Specimen Anatomical Collection Method Collection Time Receive d Time (Source) Location / / Volume Laterality Blood specimen 08/14/2017 4:52 AM 018 5:08 (specimen) EST AM EST Resulting Agency Comment Spec In Lab Yonathan Smith MD HEMATOLOGY ORDERABLES Performing Organization Address City/State/[place] [address] (ABNORMAL) Hemogram (08/14/2017 4:52 AM EST) Analysis Performed At Patho logist Time Signature WBC 9.8 (H) 4.0 - 9.5 [facility] x10(3)/[facility] LABORATORY RBC 3.32 (L) 4.58 - [facility] 5.54 [facility] x10(6)/[facility] LABORATORY Hemoglobin 9.5 (L) 13.7 - [facility] 16.[facility] gm/dL [facility] Hematocrit 30.3 (L) 40.5 - [facility] 48.5 % [facility] MCV 91.3 82.9 - [facility] 93.1 fL [facility] MCH 28.6 27.5 - [facility] 32.1 pg [facility] MCHC 31.4 (L) 32.0 - [facility] 35.7 gm/dL [facility] Platelets 263 145 - 357 [facility] x10(3)/[facility] LABORATORY RDWSD 54.8 (H) 36.0 - [facility] SU 45.0 [facility] LABORATORY RDWCV 16.5 (H) 11.4 - [facility] 13.8 % [facility] MPV 9.1 7.6 - 12.9 [facility] LABORATORY nRBC % Auto 0.0 % [facility] nRBC Abs Auto 0.000 0.000 - [facility] 0.000 [facility] x10(3)/[facility] LABORATORY Specimen Anatomical Collection Method Collection Time Receive d Time (Source) Location / / Volume Laterality Blood specimen 08/14/2017 4:52 AM 018 5:08 (specimen) EST AM EST Resulting Agency Comment Spec In Lab Yonathan Smith MD HEMATOLOGY ORDERABLES Performing Organization Address City/State/ZIP Code Phon e Number [address] (ABNORMAL) Prothrombin Time (08/14/2017 [...] Address City/State/[place] [address] (ABNORMAL) Basic Metabolic Panel (non-fasting) (08/14/2017 4:52 AM EST) P athologist Signature Glucose Lvl 135 65 - 199 [facility] mg/dL [facility] Comment: Diabetes: [...] CENTER LABORATORY Estimated GFR 52 (L) >=60 [facility] Comment: The reported eGFR should be multiplied b y 1.2 for patients. The MDRD is not an appropriate measure o f renal function for patients with body mass extremes or in patients with acute kidney failure. [email or web address] [email or web address] Specimen Anatomical Collection Method Collection Time Receive d Time (Source) Location / / Volume Laterality Blood specimen 08/14/2017 4:52 AM 018 5:08 (specimen) EST AM EST Resulting Agency Comment Spec In Lab Yonathan Smith MD CHEMISTRY ORDERABLES Performing Organization Address City/State/[place] [address] POCT Glucose (08/14/2017 3:56 AM EST) athologist Signature POC Glucose 135 65 - 199 [facility] mg/dL [facility] Comment: Supplemental [...] Address City/State/[place] [address] POCT Glucose (08/13/2017 11:13 PM EST) athologist Signature POC Glucose 118 65 - 199 [facility] mg/dL [facility] Comment: Supplemental [...] Address City/State/[place] [address] (ABNORMAL) POCT Glucose (08/13/2017 8:08 PM EST) athologist Signature POC Glucose 204 (H) 65 - 199 [facility] mg/dL [facility] Comment: Supplemental [...] Address City/State/ZIP Code Phon e Number [address] POCT Glucose (08/13/2017 4:02 PM EST) athologist Signature POC Glucose 145 65 - 199 [facility] mg/dL [facility] Comment: Supplemental [...] City/[facility]/ZIP Code Phon e Number [address] POCT Glucose (08/13/2017 11:31 AM EST) athologist Signature POC Glucose 179 65 - 199 [facility] mg/dL [facility] Comment: Supplemental [...] City/[facility]/[place] [address] (ABNORMAL) POCT Glucose (08/13/2017 10:16 AM EST) athologist Signature POC Glucose 211 (H) 65 - 199 [facility] mg/dL [facility] Comment: Supplemental [...] Address City/State/[place] [address] JULIAN, legs, multiple levels (08/13/2017 7:42 AM EST) Component Value Ref Test Analysis [facility] Range Method Time Signature VB Text Department: Vascular Surgery Lab VASCUBASE Report Patient: [id number] (GREGORY HOANG) CPT: 54947 ICD10: I99.8 Referring Physician: YONATHAN SMITH ?? Indications: s/p R 1,2,3 toe amps with red left foot, need n ew baseline Diabetes mellitus: yes ICD10 Diagnosis Code: I99.8 Findings: Right ?Pressure (mm Hg) ?? JULIAN ??Waveform ?TBI ?? Brachial Artery ?138 ? Dorsalis Pedis (Ankle) Arter y ?132 ? 0.94 ??Stafford- Biphasic ? Posterior Tibial (Ankle) Art anila ??154 ? 1.10 ??Stafford-Biphasic ? Fourth Toe ? 67 ? 0.48 [...] 199 [facility] mg/dL [facility] Comment: Supplemental [...] City/State/ZIP Code Phon e Number [place] [id number] [address] Drive (ABNORMAL) Differential, Automated (08/13/2017 5:33 AM EST) [facility] Method Time Signature Neutrophils % 77.8 % [facility] Neutr Abs (ANC) 7.83 (H) 1.70 - [facility] 6.10 [facility] x10(3)/[facility] L LABORATORY Lymphocytes % 8.4 % [facility] Lymphocytes Abs 0.8 (L) 0.9 - 3.2 [facility] x10(3)/[facility] LABORATORY Monocytes % 8.3 % [facility] Monocyte Abs 0.8 0.3 - 0.9 [facility] x10(3)/[facility] LABORATORY Eosinophils % 4.6 % [facility] Eosinophils Abs 0.5 (H) 0.0 - 0.4 [facility] x10(3)/[facility] LABORATORY Basophils % 0.5 % [facility] Basophils Abs 0.0 0.0 - 0.1 [facility] x10(3)/[facility] LABORATORY Immature Gran % 0.40 % [facility] [...] Gran Abs 0.04 0.00 - 0.04 x10(3)/[facility] MAR Y [facility] LABORATORY Specimen Anatomical Collection Method Collection Time Receive d Time (Source) Location / / Volume Laterality Blood specimen 08/13/2017 5:33 AM 018 6:04 (specimen) EST AM EST Resulting Agency Comment Spec In Lab Yonathan Smith MD HEMATOLOGY ORDERABLES Performing Organization Address City/State/[place] [address] (ABNORMAL) Hemogram (08/13/2017 5:33 AM EST) Analysis Performed At Patho logist Time Signature WBC 10.1 (H) 4.0 - 9.5 [facility] x[facility](3[facility] LABORATORY RBC 3.21 (L) 4.58 - [facility] 5.54 [facility] x10(6)/[facility] LABORATORY Hemoglobin 9.2 (L) 13.7 - [facility] 16.5 gm/dL [facility] Hematocrit 29.6 (L) 40.5 - [facility] 48.5 % [facility] MCV 92.2 82.9 - [facility] 93.1 [facility] LABORATORY MCH 28.7 27.5 - [facility] 32.1 pg [facility] MCHC 31.1 (L) 32.0 - [facility] 35.7 gm/dL [facility] Platelets 263 145 - 357 [facility] x10(3)/[facility] LABORATORY RDWSD 54.8 (H) 36.0 - [facility] 45.0 [facility] LABORATORY RDWCV 16.4 (H) 11.4 - [facility] 13.8 % [facility] MPV 9.2 7.6 - 12.9 [facility] LABORATORY nRBC % Auto 0.0 % [facility] nRBC Abs Auto 0.000 0.000 - [facility] 0.000 [facility] x10(3)/[facility] LABORATORY Specimen Anatomical Collection Method Collection Time Receive d Time (Source) Location / / Volume Laterality Blood specimen 08/13/2017 5:33 AM 018 6:04 (specimen) EST AM EST Resulting Agency Comment Spec In Lab Yonathan Smith MD HEMATOLOGY ORDERABLES Performing Organization Address City/State/[place] [address] (ABNORMAL) Prothrombin Time (08/13/2017 [...] Organization Address City/State/[place] [address] (ABNORMAL) Basic Metabolic Panel (non-fasting) (08/13/2017 5:33 AM EST) athologist Signature Glucose Lvl 126 65 - 199 [facility] mg/dL [facility] Comment: Diabetes: [...] or in patients with acute kidney failure. [email or web address] [email or web address] Specimen Anatomical Collection Method Collection Time Receive d Time (Source) Location / / Volume Laterality Blood specimen 08/13/2017 5:33 AM 018 6:04 (specimen) EST AM EST Resulting Agency Comment Spec In Lab Yonathan Smith MD CHEMISTRY ORDERABLES Performing Organization Address [facility] Phon e Number [address] POCT Glucose (08/13/2017 4:29 AM EST) athologist Signature POC Glucose 111 65 - 199 [facility] mg/dL [facility] Comment: Supplemental ranges: <140 mg/dL before meals <180 mg/dL all other times of the day Specimen Anatomical Collection Method Collection Time Receive d Time (Source) Location / / Volume Laterality Blood specimen 08/13/2017 4:29 AM 018 4:29 (specimen) EST AM EST Yonathan Smith MD POINT OF CARE TEST ORDERABLE S Performing Organization Address City/[facility] Phon e Number [address] POCT Glucose (08/12/2017 11:28 PM EST) athologist Signature POC Glucose 164 65 - 199 [facility] mg/dL [facility] Comment: Supplemental [...] Address City/State/[place] [address] (ABNORMAL) POCT Glucose (08/12/2017 7:40 PM EST) athologist Signature POC Glucose 209 (H) 65 - 199 [facility] mg/dL [facility] Comment: Supplemental [...] Address City/State/[place] [address] POCT Glucose (08/12/2017 4:24 PM EST) athologist Signature POC Glucose 161 65 - 199 [facility] mg/dL [facility] Comment: Supplemental [...] Address City/State/[place] [address] POCT Glucose (08/12/2017 12:00 PM EST) athologist Signature POC Glucose 167 65 - 199 [facility] mg/dL [facility] Comment: Supplemental ranges: <140 mg/dL before meals <180 mg/dL all other times of the day Specimen Anatomical Collection Method Collection Time Receive d Time (Source) Location / / Volume Laterality Blood specimen 08/12/2017 12:00 8 (specimen) PM EST 12:00 PM EST Yonathan Smith MD POINT OF CARE TEST ORDERABLE S Performing Organization Address City/State/[place] [address] [facility] [address] POCT Glucose (08/12/2017 7:25 AM EST) P athologist Signature POC Glucose 152 65 - 199 [facility] mg/dL [facility] Comment: Supplemental [...] Address City/State/ZIP Code Phon e Number [address] (ABNORMAL) Differential, Automated (08/12/2017 6:29 AM EST) Patholo gist Method Time Signature Neutrophils % 78.7 % [facility] Neutr Abs (ANC) 7.94 (H) 1.70 - [facility] 6.10 [facility] x10(3)/[facility] LABORATORY Lymphocytes % 8.8 % [facility] Lymphocytes Abs 0.9 0.9 - 3.2 [facility] x10(3)/[facility] LABORATORY Monocytes % 7.8 % [facility] Monocyte Abs 0.8 0.3 - 0.9 [facility] x10(3)/[facility] LABORATORY Eosinophils % 3.9 % [facility] Eosinophils Abs 0.4 0.0 - 0.4 [facility] x10(3)/[facility] LABORATORY Basophils % 0.3 % [facility] Basophils Abs 0.0 0.0 - 0.1 [facility] x10(3)/[facility] LABORATORY Immature Gran % 0.50 % [facility] [...] Organization Address City/State/[place] [address] (ABNORMAL) Hemogram (08/12/2017 6:29 AM EST) Analysis Performed At Patho logist Time Signature WBC 10.1 (H) 4.0 - 9.5 [facility] x10(3)/[facility] LABORATORY RBC 3.02 (L) 4.58 - [facility] SU 5.54 [facility] x10(6)/[facility] LABORATORY Hemoglobin 8.7 (L) 13.7 - [facility] gm/dL [facility] Hematocrit 28.1 (L) 40.5 - [facility] 48.5 % [facility] MCV 93.0 82.9 - [facility] 93.1 [facility] LABORATORY MCH 28.8 27.5 - [facility] 32.1 pg [facility] MCHC 31.0 (L) 32.0 - [facility] 35.7 gm/dL [facility] Platelets 223 145 - 357 [facility] x10(3)/[facility] LABORATORY RDWSD 56.1 (H) 36.0 - [facility] 45.0 [facility] LABORATORY RDWCV 16.4 (H) 11.4 - [facility] [employer] 13.8 % [facility] MPV 9.0 7.6 - 12.9 [facility] LABORATORY nRBC % Auto 0.0 % [facility]OR[facility] nRBC Abs Auto 0.000 0.000 - [facility] SU 0.000 [facility] x10(3)/[facility] LABORATORY Specimen Anatomical Collection Method Collection Time Receive d Time (Source) Location / / Volume Laterality Blood specimen 08/12/2017 6:29 AM 018 6:38 (specimen) EST AM EST Resulting Agency Comment Spec In Lab Yonathan Smith MD HEMATOLOGY ORDERABLES Performing Organization Address [facility] [place] [address] (ABNORMAL) Prothrombin Time (08/12/2017 [...] Smith MD HEMATOLOGY ORDERABLES Performing Organization Address [facility] [place] [address] (ABNORMAL) Basic Metabolic Panel (non-fasting) (08/12/2017 6:29 AM EST) athologist Signature Glucose Lvl 151 65 - 199 [facility] mg/dL [facility] Comment: Diabetes: [...] or in patients with acute kidney failure. [email or web address] [email or web address] Specimen Anatomical Collection Method Collection Time Receive d Time (Source) Location / / Volume Laterality Blood specimen 08/12/2017 6:29 AM 018 6:38 (specimen) EST AM EST Resulting Agency Comment Spec In Lab Yonathan Smith MD CHEMISTRY ORDERABLES Performing Organization Address City/[facility]/[place] [address] POCT Glucose (08/12/2017 4:08 AM EST) P athologist Signature POC Glucose 181 65 - 199 [facility] mg/dL [facility] Comment: Supplemental [...] City/[facility]/[place] [address] (ABNORMAL) POCT Glucose (08/12/2017 12:17 AM EST) athologist Signature POC Glucose 221 (H) 65 - 199 [facility] mg/dL [facility] Comment: Supplemental [...] Address City/State/[place] [address] (ABNORMAL) POCT Glucose (08/11/2017 8:52 PM EST) athologist Signature POC Glucose 221 (H) 65 - 199 [facility] mg/dL [facility] Comment: Supplemental [...] Address City/State/[place] [address] POCT Glucose (08/11/2017 5:59 PM EST) athologist Signature POC Glucose 169 65 - 199 [facility] mg/dL [facility] Comment: Supplemental [...] Address City/State/[place] [address] (ABNORMAL) POCT Glucose (08/11/2017 4:08 PM EST) P athologist Signature POC Glucose 240 (H) 65 - 199 [facility] mg/dL [facility] Comment: Supplemental [...] Address City/State/[place] [address] POCT Glucose (08/11/2017 12:04 PM EST) athologist Signature POC Glucose 182 65 - 199 [facility] Comment: Supplemental [...] Address City/State/ZIP Code Phon e Number [address] POCT Glucose (08/11/2017 7:31 AM EST) athologist Signature POC Glucose 156 65 - 199 [facility] mg/dL [facility] Comment: Supplemental [...] Address City/State/[place] [address] (ABNORMAL) Differential, Automated (08/11/2017 6:16 AM EST) [facility] gist Method Time Signature Neutrophils % 83.7 % [facility] Neutr Abs (ANC) 10.76 (H) 1.70 - [facility] 6.10 [facility] x10(3)/[facility] LABORATORY Lymphocytes % 6.0 % [facility] Lymphocytes Abs 0.8 (L) 0.9 - 3.2 [facility] x10(3)/[facility] LABORATORY Monocytes % 7.5 % [facility] Monocyte Abs 1.0 (H) 0.3 - 0.9 [facility] x10(3)/[facility] LABORATORY Eosinophils % 2.0 % [facility] Eosinophils Abs 0.3 0.0 - 0.4 [facility] x10(3)/[facility] LABORATORY Basophils % 0.3 % [facility] Basophils Abs 0.0 0.0 - 0.1 [place] [id number](3)/[facility] LABORATORY Immature Gran % 0.50 % [facility] [...] Abs 0.06 (H) 0.00 - 0.04 x10(3)/[facility] LABORATORY Specimen Anatomical Collection Method Collection Time Receive d Time (Source) Location / / Volume Laterality Blood specimen 08/11/2017 6:16 AM 018 6:24 (specimen) EST AM EST Resulting Agency Comment Spec In Lab Yonathan Smith MD HEMATOLOGY ORDERABLES Performing Organization Address City/State/[place] [address] (ABNORMAL) Hemogram (08/11/2017 6:16 AM EST) Analysis Performed At [facility] Time Signature WBC 12.9 (H) 4.0 - 9.5 [facility] x10(3)/[facility] LABORATORY RBC 3.28 (L) 4.58 - [facility] 5.54 [facility] x10(6)/[facility] LABORATORY Hemoglobin 9.5 (L) 13.7 - [facility] 16.5 gm/dL [facility] Hematocrit 29.8 (L) 40.5 - [facility] 48.5 % [facility] MCV 90.9 82.9 - [facility] 93.1 [facility] LABORATORY MCH 29.0 27.5 - [facility] 32.1 pg [facility] MCHC 31.9 (L) 32.0 - [facility] 35.7 gm/dL [facility] Platelets 236 145 - 357 [facility] x10(3)/[facility] LABORATORY RDWSD 53.5 (H) 36.0 - [facility] 45.0 [facility] LABORATORY RDWCV 16.3 (H) 11.4 - [facility] 13.8 % [facility] MPV 8.8 7.6 - 12.9 [facility] LABORATORY nRBC % Auto 0.0 % [facility] nRBC Abs Auto 0.000 0.000 - [facility] 0.000 [facility] x10(3)/[facility] LABORATORY Specimen Anatomical Collection Method Collection Time Receive d Time (Source) Location / / Volume Laterality Blood specimen 08/11/2017 6:16 AM 018 6:24 (specimen) EST AM EST Resulting Agency Comment Spec In Lab Yonathan Smith MD HEMATOLOGY ORDERABLES Performing Organization Address City/State/[place] [address] (ABNORMAL) Prothrombin Time (08/11/2017 [...] Organization Address City/State/[place] [address] Basic Metabolic Panel (non-fasting) (08/11/2017 6:16 AM EST) athologist Signature Glucose Lvl 139 65 - 199 [facility] mg/dL [facility] Comment: Diabetes: [...] or in patients with acute kidney failure. [email or web address] [email or web address] Specimen Anatomical Collection Method Collection Time Receive d Time (Source) Location / / Volume Laterality Blood specimen 08/11/2017 6:16 AM 018 6:24 (specimen) EST AM EST Resulting Agency Comment Spec In Lab Yonathan Smith MD CHEMISTRY ORDERABLES Performing Organization Address City/State/ZIP Code Phon e Number [address] POCT Glucose (08/11/2017 4:07 AM EST) athologist Signature POC Glucose 162 65 - 199 [facility] mg/dL [facility] Comment: Supplemental [...] Address City/State/ZIP Code Phon e Number [address] POCT Glucose (08/10/2017 11:59 PM EST) athologist Signature POC Glucose 166 65 - 199 [facility] mg/dL [facility] Comment: Supplemental [...] Address City/State/ZIP Code Phon e Number [address] POCT Glucose (08/10/2017 8:12 PM EST) athologist Signature POC Glucose 156 65 - 199 [facility] mg/dL [facility] Comment: Supplemental [...] Address City/State/[place] [address] (ABNORMAL) POCT Glucose (08/10/2017 4:42 PM EST) P athologist Signature POC Glucose 211 (H) 65 - 199 [facility]dL [facility] Comment: Supplemental [...] Address City/State/[place] [address] (ABNORMAL) Differential, Automated (08/10/2017 2:30 PM EST) Patholo gist Method Time Signature Neutrophils % 87.6 % [facility] Neutr Abs (ANC) 9.90 (H) 1.70 - [facility] 6.10 [facility] x10(3)/[facility] L LABORATORY Lymphocytes % 4.3 % [facility] Lymphocytes Abs 0.5 (L) 0.9 - 3.2 [facility] x10(3)/[facility] LABORATORY Monocytes % 6.0 % [facility] Monocyte Abs 0.7 0.3 - 0.9 [facility] x10(3)/[facility] LABORATORY Eosinophils % 1.1 % [facility] Eosinophils Abs 0.1 0.0 - 0.4 [facility] x10(3)/[facility] LABORATORY Basophils % 0.4 % [facility] Basophils Abs 0.0 0.0 - 0.1 [facility] x10(3)/[facility] LABORATORY Immature Gran % 0.60 % [facility] [...] Organization Address City/State/[place] [address] (ABNORMAL) Hemogram (08/10/2017 2:30 PM EST) Analysis Performed At Patho logist Time Signature WBC 11.3 (H) 4.0 - 9.5 [facility] x10(3)/[facility] LABORATORY RBC 3.13 (L) 4.58 - [facility] 5.54 [facility] x10(6)/[facility] LABORATORY Hemoglobin 8.9 (L) 13.7 - [facility] 16.5 gm/dL [facility] Hematocrit 28.4 (L) 40.5 - [facility] 48.5 % [facility] MCV 90.7 82.9 - [facility] 93.1 [facility] LABORATORY MCH 28.4 27.5 - [facility] 32.1 pg [facility] MCHC 31.3 (L) 32.0 - [facility] 35.7 gm/dL [facility] Platelets 213 145 - 357 [facility] x10(3)/[facility] LABORATORY RDWSD 53.7 (H) 36.0 - [facility] 45.0 [facility] RDWCV 16.4 (H) 11.4 - [facility] 13.8 % [facility] MPV 8.9 7.6 - 12.9 [facility] LABORATORY nRBC % Auto 0.0 % [facility] nRBC Abs Auto 0.000 0.000 - [facility] 0.000 [facility] x10(3)/[facility] LABORATORY Specimen Anatomical Collection Method Collection Time Receive d Time (Source) Location / / Volume Laterality Blood specimen 08/10/2017 2:30 PM 018 2:48 (specimen) EST PM EST Resulting Agency Comment Spec In Lab Yonathan Smith MD HEMATOLOGY ORDERABLES Performing Organization Address City/State/ZIP Code Phon e Number [address] (ABNORMAL) POCT Glucose (08/10/2017 1:50 PM EST) P athologist Signature POC Glucose 243 (H) 65 - 199 [facility] mg/dL [facility] Comment: Supplemental [...] City/[facility]/[place] [address] POCT Glucose (08/10/2017 11:21 AM EST) P athologist Signature POC Glucose 156 65 - 199 [facility] mg/dL [facility] Comment: Supplemental [...] Address City/State/[place] [address] (ABNORMAL) Differential, Automated (08/10/2017 10:28 AM EST) Patholo gist Method Time Signature Neutrophils % 85.3 % [facility] Neutr Abs (ANC) 9.43 (H) 1.70 - [facility] 6.10 [facility] x10(3)/[facility] L LABORATORY Lymphocytes % 5.5 % [facility] Lymphocytes Abs 0.6 (L) 0.9 - 3.2 [facility] x10(3)/[facility] LABORATORY Monocytes % 5.9 % [facility] Monocyte Abs 0.6 0.3 - 0.9 [facility] x10(3)/[facility] LABORATORY Eosinophils % 2.1 % [facility] Eosinophils Abs 0.2 0.0 - 0.4 [facility] x10(3)/[facility] LABORATORY Basophils % 0.4 % [facility] Basophils Abs 0.0 0.0 - 0.1 [facility] x10(3)/[facility] LABORATORY Immature Gran % 0.80 % [facility] [...] Organization Address City/State/[place] [address] (ABNORMAL) Hemogram (08/10/2017 10:28 AM EST) Analysis Performed At Patho logist Time Signature WBC 11.0 (H) 4.0 - 9.5 [facility] x10(3)/[facility] LABORATORY RBC 3.02 (L) 4.58 - [facility] 5.54 [facility] x10(6)/[facility] LABORATORY Hemoglobin 8.8 (L) 13.7 - [facility] 16.5 gm/dL [facility] Hematocrit 28.1 (L) 40.5 - [facility] 48.5 % [facility] MCV 93.0 82.9 - [facility] 93.1 [facility] LABORATORY MCH 29.1 27.5 - [facility] 32.1 pg [facility] MCHC 31.3 (L) 32.0 - [facility] 35.7 gm/dL [facility] Platelets 207 145 - 357 [facility] x10(3)/[facility] LABORATORY RDWSD 55.3 (H) 36.0 - [facility] 45.0 [facility] LABORATORY RDWCV 16.4 (H) 11.4 - [facility] 13.8 % [facility] MPV 9.0 7.6 - 12.9 [facility] LABORATORY nRBC % Auto 0.0 % [facility] nRBC Abs Auto 0.000 0.000 - [facility] 0.000 [facility] x10(3)/[facility] LABORATORY Specimen Anatomical Collection Method Collection Time Receive d Time (Source) Location / / Volume Laterality Blood specimen 08/10/2017 10:28 8 (specimen) AM EST 10:35 AM EST Resulting Agency Comment Spec In Lab Yonathan Smith MD HEMATOLOGY ORDERABLES Performing Organization Address City/State/[place] [address] VS Angiogram/intervention (vascular) (08/10/2017 [...] 2.5x80 5. Completion RLE angiogram 6. L DIELECTRIC TESTING MACHINE OPERATOR angiogram 7. 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 L DIELECTRIC TESTING MACHINE OPERATOR access in the distal L DIELECTRIC TESTING MACHINE OPERATOR. - Closure device: Mynx Technical [...] for a 45cm 5F Destination. V18 and Zalma a nd QuickCross catheters were used to [...] bifurcation. Access appeared in the distal R DIELECTRIC TESTING MACHINE OPERATOR. Closure and sheath removal was [...] 2.5x80 5. Completion RLE angiogram 6. L DIELECTRIC TESTING MACHINE OPERATOR angiogram 7. 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 L DIELECTRIC TESTING MACHINE OPERATOR access in the distal L DIELECTRIC TESTING MACHINE OPERATOR. - Closure device: Mynx Technical [...] for a 45cm 5F Destination. V18 and Zalma a nd QuickCross catheters were used to [...] bifurcation. Access appeared in the distal R DIELECTRIC TESTING MACHINE OPERATOR. Closure and sheath removal was [...] (ABNORMAL) Differential, Automated (08/10/2017 5:50 AM EST) [facility] gist Method Time Signature Neutrophils % 80.1 % [facility] Neutr Abs (ANC) 9.01 (H) 1.70 - [facility] 6.10 [facility] x10(3)/[facility] L LABORATORY Lymphocytes % 8.8 % [facility]OR[facility] Lymphocytes Abs 1.0 0.9 - 3.2 [facility] x10(3)/[facility] LABORATORY Monocytes % 8.3 % [facility] Monocyte Abs 0.9 0.3 - 0.9 [facility] x10(3)/[facility] LABORATORY Eosinophils % 2.0 % [facility] Eosinophils Abs 0.2 0.0 - 0.4 [facility] x10(3)/[facility] LABORATORY Basophils % 0.4 % [facility] Basophils Abs 0.0 0.0 - 0.1 [facility] x10(3)/[facility] LABORATORY Immature Gran % 0.40 % [facility] [...] Organization Address City/State/[place] [address] (ABNORMAL) Hemogram (08/10/2017 5:50 AM EST) Analysis Performed At Patho logist Time Signature WBC 11.3 (H) 4.0 - 9.5 [facility] x10(3)/[facility] LABORATORY RBC 3.15 (L) 4.58 - [facility] 5.54 [facility] x10(6)/[facility] LABORATORY Hemoglobin 8.9 (L) 13.7 - [facility] 16.5 gm/dL [facility] Hematocrit 29.0 (L) 40.5 - [facility] 48.5 % [facility] MCV 92.1 82.9 - [facility] 93.1 fL [facility] MCH 28.3 27.5 - [facility] 32.1 pg [facility] MCHC 30.7 (L) 32.0 - [facility] 35.7 gm/dL [facility] Platelets 231 145 - 357 [facility] x10(3)/[facility] LABORATORY RDWSD 53.9 (H) 36.0 - [facility] 45.0 [facility] LABORATORY RDWCV 16.2 (H) 11.4 - [facility] 13.8 % [facility] MPV 8.7 7.6 - 12.9 [facility] LABORATORY nRBC % Auto 0.0 % [facility]ORATORY nRBC Abs Auto 0.000 0.000 - [facility] 0.000 [facility] x10(3)/[facility] LABORATORY Specimen Anatomical Collection Method Collection Time Receive d Time (Source) Location / / Volume Laterality Blood specimen 08/10/2017 5:50 AM 018 5:59 (specimen) EST AM EST Resulting Agency Comment Spec In Lab Yonathan Smith MD HEMATOLOGY ORDERABLES Performing Organization Address City/State/[place] [address] (ABNORMAL) Basic Metabolic Panel (non-fasting) (08/10/2017 5:50 AM EST) P athologist Signature Glucose Lvl 135 65 - 199 [facility] mg/dL [facility] Comment: Diabetes: [...] LABORATORY Estimated GFR >60 >=60 [facility] LABORATORY Comment: The reported eGFR should be multiplied b y 1.2 for patients. The MDRD is not an appropriate measure o f renal function for patients with body mass extremes or in patients with acute kidney failure. http://[employer]/DHnkdep http://[employer]/DHMCnkf Specimen Anatomical Collection Method Collection Time Receive d Time (Source) Location / / Volume Laterality Blood specimen 08/10/2017 5:50 AM 018 5:59 (specimen) EST AM EST Resulting Agency Comment Spec In Lab Yonathan Smith MD CHEMISTRY ORDERABLES Performing Organization Address [facility] Code Phon e Number [address] (ABNORMAL) Prothrombin Time (08/10/2017 [...] Smith MD HEMATOLOGY ORDERABLES Performing Organization Address City/[facility] [place] [address] (ABNORMAL) POCT Glucose (08/10/2017 4:01 AM EST) P athologist Signature POC Glucose 206 (H) 65 - 199 [facility] mg/dL [facility] Comment: Supplemental [...] Address City/State/[place] [address] POCT Glucose (08/10/2017 2:01 AM EST) athologist Signature POC Glucose 188 65 - 199 [facility] mg/dL [facility] Comment: Supplemental [...] Address City/State/[place] [address] (ABNORMAL) POCT Glucose (08/09/2017 11:42 PM EST) athologist Signature POC Glucose 283 (H) 65 - 199 [facility] mg/dL [facility] Comment: Supplemental [...] Address City/State/ZIP Code Phon e Number [address] POCT Glucose (08/09/2017 8:55 PM EST) athologist Signature POC Glucose 182 65 - 199 [facility] mg/dL [facility] Comment: Supplemental [...] Address City/State/[place] [address] (ABNORMAL) APTT (08/09/2017 6:42 [...] Address City/State/[place] [address] POCT Glucose (08/09/2017 4:41 PM EST) athologist Signature POC Glucose 195 65 - 199 [facility]dL [facility] Comment: Supplemental [...] City/[facility]/[place] [address] POCT Glucose (08/09/2017 12:29 PM EST) athologist Signature POC Glucose 140 65 - 199 [facility] mg/dL [facility] Comment: Supplemental [...] City/[facility]/ZIP Code Phon e Number [address] POCT Glucose (08/09/2017 9:59 AM EST) P athologist Signature POC Glucose 135 65 - 199 [facility] mg/dL [facility] Comment: Supplemental [...] City/[facility]/[place] [address] Specimen to Pathology (08/09/2017 [...] City/[facility]/[place] [address] Surgical Pathology Report (08/09/2017 8:40 AM EST) Component Value Ref Test Analysis Performed At Patholo gist Range Method Time Signature Surgical [id number] ? [facility]; A [facility] Report The signing pathologist has (i) [...] [facility] [place] Dept. of Pathology, [place], [place] CLINICAL INFORMATION Specimen Submitted: A - [...] City/State/ZIP Code Phon e Number [place] [id number] Anaerobic Culture (08/09/2017 8:30 AM EST) [facility] Method Time Signature Anaerobic No anaerobic [facility] Culture organisms [facility] LABORATORY Specimen Anatomical Collection Method Collection Time Receive d Time (Source) Location / / Volume Laterality Specimen from STRUCTURE OF RIGHT 08/09/2017 8:30 AM 9:10 abscess FOOT / Unknown EST AM EST (specimen) Comment: SWAB RIGHT GREAT TOE ABSCESS FO R AEROBIC AND ANAEROBIC CULTURES. Resulting Agency Comment Spec In Lab Yonathan Smith MD MICROBIOLOGY - GENERAL ORDER [place] Performing Organization Address City/[facility]/ZIP Code Phon e Number [place] [id number]OS[address] (ABNORMAL) Abscess/Wound Aspirate Culture (08/09/2017 8:30 AM EST) [facility] Method Time Signature Abscess/Wound Moderate mixed [facility] Aspirate bacterial [place] Culture morphotypes [facility] normal LABORATORY cutaneous leroy (A) Gram Stain Rare White Blood Cells [facility] Few Gram Positive Cocci in pairs [place] () [facility] Organism Gram Positive [place] Cocci in pairs [place] () [facility] Specimen Anatomical Collection [...] Organization Address City/State/[place] [address] POCT Glucose (08/09/2017 4:28 AM EST) P athologist Signature POC Glucose 128 65 - 199 [facility] mg/dL [facility] Comment: Supplemental [...] Address City/State/[place] [address] ABORH Recheck Status (08/09/2017 1:10 AM EST) [facility] Method Time Signature ABORH Type Completed [facility] LABORATORY Specimen Anatomical Collection Method Collection Time Receive d Time (Source) Location / / Volume Laterality Blood specimen 08/09/2017 1:10 AM 018 1:35 (specimen) EST AM EST Resulting Agency Comment Spec In Lab Yonathan Smith MD BLOOD BANK ORDERABLES Performing Organization Address City/[facility]/[place] [address] Antibody screen (08/09/2017 1:10 AM EST) [facility] Method Time Signature Ab Screen Negative [facility] LABORATORY Expires at 08/12/2017 [facility] [id number] on: [facility] Specimen Anatomical Collection Method Collection Time Receive d Time (Source) Location / / Volume Laterality Blood specimen 08/09/2017 1:10 AM 018 1:35 (specimen) EST AM EST Resulting Agency Comment Spec In Lab Yonathan Smith MD BLOOD BANK ORDERABLES Performing Organization Address City/State/[place] [address] ABO/Rh Typing (08/09/2017 1:10 [...] Address City/State/[place] [address] (ABNORMAL) APTT (08/09/2017 1:10 [...] Address City/State/[place] [address] (ABNORMAL) Differential, Automated (08/09/2017 1:10 AM EST) Patholo gist Method Time Signature Neutrophils % 76.2 % [facility]ORAT[facility] Neutr Abs (ANC) 8.59 (H) 1.70 - [facility] 6.10 [facility] x10(3)/[facility] LABORATORY Lymphocytes % 11.0 % [facility] LABORATORY Lymphocytes Abs 1.2 0.9 - 3.2 [facility] x10(3)/[facility] LABORATORY Monocytes % 8.4 % [facility] LABORATORY Monocyte Abs 1.0 (H) 0.3 - 0.9 [facility] x10(3)/[facility] LABORATORY Eosinophils % 3.5 % [facility] LABORATORY Eosinophils Abs 0.4 0.0 - 0.4 [facility] x10(3)/[facility] LABORATORY Basophils % 0.5 % [facility] LABORATORY Basophils Abs 0.1 0.0 - 0.1 [facility] x10(3)/[facility] LABORATORY Immature Gran % 0.40 % [facility] [...] Organization Address City/State/[place] [address] (ABNORMAL) Hemogram (08/09/2017 1:10 AM EST) Analysis Performed At Patho logist Time Signature WBC 11.3 (H) 4.0 - 9.5 [facility] x10(3)/[facility] LABORATORY RBC 3.47 (L) 4.58 - [facility] 5.54 [facility] x10(6)/[facility] LABORATORY Hemoglobin 10.0 (L) 13.7 - [facility] g[facility]/dL [facility] LABORATORY Hematocrit 31.9 (L) 40.5 - [facility] 48.5 % [facility] LABORATORY MCV 91.9 82.9 - [facility] 93.1 [facility] LABORATORY MCH 28.8 27.5 - [facility] 32.1 pg [facility] LABORATORY MCHC 31.3 (L) 32.0 - [facility] 35.7 gm/dL [facility] LABORATORY Platelets 234 145 - 357 [facility] x10(3)/[facility] LABORATORY RDWSD 54.0 (H) 36.0 - [facility] 45.0 [facility] LABORATORY RDWCV 16.2 (H) 11.4 - [facility] 13.8 % [facility] LABORATORY MPV 8.7 7.6 - 12.9 [facility] LABORATORY nRBC % Auto 0.0 % [facility] LABORATORY nRBC Abs Auto 0.000 0.000 - [facility] 0.000 [facility] x10(3)/[facility] LABORATORY Specimen Anatomical Collection Method Collection Time Receive d Time (Source) Location / / Volume Laterality Blood specimen 08/09/2017 1:10 AM 018 1:19 (specimen) EST AM EST Resulting Agency Comment Spec In Lab Yonathan Smith MD HEMATOLOGY ORDERABLES Performing Organization Address City/[facility]/[place] [address] (ABNORMAL) Prothrombin Time (08/09/2017 [...] Smith MD HEMATOLOGY ORDERABLES Performing Organization Address City/[facility]/[place] [address] (ABNORMAL) Basic Metabolic Panel (non-fasting) (08/09/2017 1:10 AM EST) athologist Signature Glucose Lvl 108 65 - 199 [facility] mg/dL [facility] LABORATORY Comment: Diabetes: [...] CENTER LABORATORY Estimated GFR 45 (L) >=60 [facility] LABORATORY Comment: The reported eGFR should be multiplied b y 1.2 for patients. The MDRD is not an appropriate measure o f renal function for patients with body mass extremes or in patients with acute kidney failure. http://Nixle.RedBee/DHnkdep http://[employer]/DHMCnkf Specimen Anatomical Collection Method Collection Time Receive d Time (Source) Location / / Volume Laterality Blood specimen 08/09/2017 1:10 AM 018 1:19 (specimen) EST AM EST Resulting Agency Comment Spec In Lab Yonathan Smith MD CHEMISTRY ORDERABLES Performing Organization Address City/[facility]/[place] [address] POCT Glucose (08/09/2017 12:05 AM EST) P athologist Signature POC Glucose 128 65 - 199 [facility] mg/dL [facility] LABORATORY Comment: Supplemental [...] Address City/State/ZIP [place] [address] (ABNORMAL) POCT Glucose (08/08/2017 7:36 PM EST) athologist Signature POC Glucose 215 (H) 65 - 199 [facility] mg/dL [facility] LABORATORY Comment: Supplemental [...] City/[facility]/ZIP Code Phon e Number [address] (ABNORMAL) POCT Glucose (08/08/2017 6:23 PM EST) athologist Signature POC Glucose 216 (H) 65 - 199 [facility] mg/dL [facility] LABORATORY Comment: Supplemental [...] City/[facility]/[place] [address] (ABNORMAL) APTT (08/08/2017 6:00 [...] Address City/State/ZIP Code Phon e Number [address] POCT Glucose (08/08/2017 4:42 PM EST) athologist Signature POC Glucose 78 65 - 199 [facility] mg/dL [facility] LABORATORY Comment: Supplemental [...] City/[facility]/[place] [address] (ABNORMAL) POCT Glucose (08/08/2017 4:01 PM EST) athologist Signature POC Glucose 58 (L) 65 - 199 [facility] mg/dL [facility] LABORATORY Comment: Supplemental [...] Address City/State/[place] [address] POCT Glucose (08/08/2017 11:51 AM EST) athologist Signature POC Glucose 90 65 - 199 [facility] mg/dL [facility] LABORATORY Comment: Supplemental ranges: <140 mg/dL before meals <180 mg/dL all other times of the day Specimen Anatomical Collection Method Collection Time Receive d Time (Source) Location / / Volume Laterality Blood specimen 08/08/2017 11:51 8 (specimen) AM EST 11:51 AM EST Yonathan Smith MD POINT OF CARE TEST ORDERABLE S Performing Organization Address [facility]/[place] [address] (ABNORMAL) APTT (08/08/2017 10:27 [...] Smith MD HEMATOLOGY ORDERABLES Performing Organization Address City/[facility]/[place] [address] POCT Glucose (08/08/2017 8:02 AM EST) athologist Signature POC Glucose 178 65 - 199 [facility] mg/dL [facility] LABORATORY Comment: Supplemental [...] City/[facility]/[place] [address] (ABNORMAL) APTT (08/08/2017 4:51 AM EST) athologist Signature PTT >160 25 - 35 [facility] (Critical) sec [facility] LABORATORY Comment: Called by: HOWARD, Read back [...] Organization Address City/State/[place] [address] (ABNORMAL) Differential, Automated (08/08/2017 4:51 AM EST) [facility] Method Time Signature Neutrophils % 77.9 % [facility] LABORATORY Neutr Abs (ANC) 8.17 (H) 1.70 - [facility] 6.10 [facility] x10(3)/[facility] LABORATORY Lymphocytes % 10.3 % [facility] LABORATORY Lymphocytes Abs 1.1 0.9 - 3.2 [facility] x10(3)/[facility] LABORATORY Monocytes % 7.0 % [facility] LABORATORY Monocyte Abs 0.7 0.3 - 0.9 [facility] x10(3)/[facility] LABORATORY Eosinophils % 3.6 % [facility] LABORATORY Eosinophils Abs 0.4 0.0 - 0.4 [facility] x10(3)[facility] LABORATORY Basophils % 0.5 % [facility] LABORATORY Basophils Abs 0.0 0.0 - 0.1 [facility] x10(3)[facility] LABORATORY Immature Gran % 0.70 % [facility] [...] Organization Address City/State/[place] [address] (ABNORMAL) Hemogram (08/08/2017 4:51 AM EST) Analysis Performed At Patho logist Time Signature WBC 10.5 (H) 4.0 - 9.5 [facility] x10(3)/[facility] LABORATORY RBC 3.27 (L) 4.58 - [facility] 5.54 [facility] x10(6)/[facility] LABORATORY Hemoglobin 9.3 (L) 13.7 - [facility] 16.5 gm/dL [facility] LABORATORY Hematocrit 30.3 (L) 40.5 - [facility] 48.5 % [facility] LABORATORY MCV 92.7 82.9 - [facility] 93.1 [facility] LABORATORY MCH 28.4 27.5 - [facility] 32.1 pg [facility] LABORATORY MCHC 30.7 (L) 32.0 - [facility] 35.7 gm/dL [facility] LABORATORY Platelets 252 145 - 357 [facility] x10(3)/[facility] LABORATORY RDWSD 54.6 (H) 36.0 - [facility] 45.0 [facility] LABORATORY RDWCV 16.2 (H) 11.4 - [facility] 13.8 % [facility] LABORATORY MPV 9.1 7.6 - 12.9 [facility] LABORATORY nRBC % Auto 0.0 % [facility] LABORATORY nRBC Abs Auto 0.000 0.000 - [facility] 0.000 [facility] x10(3)/[facility] LABORATORY Specimen Anatomical Collection Method Collection Time Receive d Time (Source) Location / / Volume Laterality Blood specimen 08/08/2017 4:51 AM 018 5:14 (specimen) EST AM EST Resulting Agency Comment Spec In Lab Yonathan Smith MD HEMATOLOGY ORDERABLES Performing Organization Address City/[facility]/[place] [address] (ABNORMAL) Prothrombin Time (08/08/2017 [...] Address City/State/[place] [address] (ABNORMAL) Basic Metabolic Panel (non-fasting) (08/08/2017 4:51 AM EST) P athologist Signature Glucose Lvl 229 (H) 65 - 199 [facility] mg/dL [facility] LABORATORY Comment: Diabetes: [...] CENTER LABORATORY Estimated GFR 44 (L) >=60 [facility] LABORATORY Comment: The reported eGFR should be multiplied b y 1.2 for patients. The MDRD is not an appropriate measure o f renal function for patients with body mass extremes or in patients with acute kidney failure. http://[employer]/DHnkdep http://[employer]/DHnkf Specimen Anatomical Collection Method Collection Time Receive d Time (Source) Location / / Volume Laterality Blood specimen 08/08/2017 4:51 AM 018 5:14 (specimen) EST AM EST Resulting Agency Comment Spec In Lab Yonathan Smith MD CHEMISTRY ORDERABLES Performing Organization Address City/[facility]/ZIP Code Phon e Number [address] POCT Glucose (08/08/2017 4:20 AM EST) athologist Signature POC Glucose 193 65 - 199 [facility] mg/dL [facility] LABORATORY Comment: Supplemental [...] City/[facility]/ZIP Code Phon e Number [address] POCT Glucose (08/07/2017 11:11 PM EST) athologist Signature POC Glucose 124 65 - 199 [facility] mg/dL [facility] LABORATORY Comment: Supplemental [...] City/[facility]/[place] [address] (ABNORMAL) APTT (08/07/2017 10:18 [...] Smith MD HEMATOLOGY ORDERABLES Performing Organization Address City/[facility]/[place] [address] POCT Glucose (08/07/2017 8:10 PM EST) athologist Signature POC Glucose 140 65 - 199 [facility] mg/dL [facility] LABORATORY Comment: Supplemental [...] City/[facility]/[place] [address] POCT Glucose (08/07/2017 5:27 PM EST) athologist Signature POC Glucose 187 65 - 199 [facility] mg/dL [facility] LABORATORY Comment: Supplemental [...] City/[facility]/ZIP Code Phon e Number [address] POCT Glucose (08/07/2017 3:29 PM EST) athologist Signature POC Glucose 86 65 - 199 [facility] mg/dL [facility] LABORATORY Comment: Supplemental ranges: <140 mg/dL before meals <180 mg/dL all other times of the day Specimen Anatomical Collection Method Collection Time Receive d Time (Source) Location / / Volume Laterality Blood specimen 08/07/2017 3:29 PM 018 3:29 (specimen) EST PM EST Yonathan Smith MD POINT OF CARE TEST ORDERABLE S Performing Organization Address [facility]/ZIP Code Phon e Number [address] (ABNORMAL) APTT (08/07/2017 2:50 [...] Smith MD HEMATOLOGY ORDERABLES Performing Organization Address City/[facility]/ZIP Code Phon e Number [address] (ABNORMAL) POCT Glucose (08/07/2017 2:23 PM EST) athologist Signature POC Glucose 55 (L) 65 - 199 [facility] mg/dL [facility] LABORATORY Comment: Supplemental [...] Address City/State/ZIP Code Phon e Number [address] POCT Glucose (08/07/2017 12:08 PM EST) athologist Signature POC Glucose 77 65 - 199 [facility] mg/dL [facility] LABORATORY Comment: Supplemental [...] Address City/State/ZIP Code Phon e Number [address] (ABNORMAL) Differential, Automated (08/07/2017 7:30 AM EST) [facility] gist Method Time Signature Neutrophils % 73.8 % [facility] LABORATORY Neutr Abs (ANC) 7.17 (H) 1.70 - [facility] 6.10 [facility] x10(3)/[facility] LABORATORY Lymphocytes % 12.2 % [facility] LABORATORY Lymphocytes Abs 1.2 0.9 - 3.2 [facility] x10(3)/[facility] LABORATORY Monocytes % 9.0 % [facility] LABORATORY Monocyte Abs 0.9 0.3 - 0.9 [facility] x10(3)/[facility] LABORATORY Eosinophils % 3.9 % [facility] LABORATORY Eosinophils Abs 0.4 0.0 - 0.4 [facility] x10(3)/[facility] LABORATORY Basophils % 0.6 % [facility] LABORATORY Basophils Abs 0.1 0.0 - 0.1 [facility] x10(3)/[facility] LABORATORY Immature Gran % 0.50 % [facility] [...] City/State/ZIP Code Phon e Number [place] [id number] [address]OS[address] LAB[address]ORY Drive (ABNORMAL) Hemogram (08/07/2017 7:30 AM EST) Analysis Performed At Patho logist Time Signature WBC 9.7 (H) 4.0 - 9.5 [facility] x10(3)/[facility] LABORATORY RBC 3.54 (L) 4.58 - [facility] 5.54 [facility] x10(6)/[facility] LABORATORY Hemoglobin 9.9 (L) 13.7 - [facility] 16.5 gm/dL [facility] LABORATORY Hematocrit 32.3 (L) 40.5 - [facility] 48.5 % [facility] LABORATORY MCV 91.2 82.9 - [facility] 93.1 fL [facility] LABORAT[facility] MCH 28.0 27.5 - [facility] 32.1 pg [facility] LAB[facility]AT[facility] MCHC 30.7 (L) 32.0 - [facility] 35.7 gm/dL [facility] LABORATORY Platelets 312 145 - 357 [facility] x10(3)/[facility] LABORATORY RDWSD 53.2 (H) 36.0 - [facility] 45.0 [facility] LABORATORY RDWCV 16.0 (H) 11.4 - [facility] 13.8 % [facility] LABORATORY MPV 8.9 7.6 - 12.9 [facility] LABORATORY nRBC % Auto 0.0 % [facility] LABORATORY nRBC Abs Auto 0.000 0.000 - [facility] 0.000 [facility] x10(3)/[facility] LABORATORY Specimen Anatomical Collection Method Collection Time Receive d Time (Source) Location / / Volume Laterality Blood specimen 08/07/2017 7:30 AM 018 7:45 (specimen) EST AM EST Resulting Agency Comment Spec In Lab Yonathan Smith MD HEMATOLOGY ORDERABLES Performing Organization Address City/State/[place] [address] (ABNORMAL) Basic Metabolic Panel (non-fasting) (08/07/2017 7:30 AM EST) P athologist Signature Glucose Lvl 80 65 - 199 [facility] mg/dL [facility] LABOR[facility]ORY Comment: Diabetes: [...] mg/dL [facility] Linnea [facility] LABORATORY Estimated GFR 59 (L) >=60 [facility] LABORATORY Comment: The reported eGFR should be multiplied b y 1.2 for patients. The MDRD is not an appropriate measure o f renal function for patients with body mass extremes or in patients with acute kidney failure. http://[employer]/DHnkdep http://[employer]/DHMCnkf Specimen Anatomical Collection Method Collection Time Receive d Time (Source) Location / / Volume Laterality Blood specimen 08/07/2017 7:30 AM 018 7:45 (specimen) EST AM EST Resulting Agency Comment Spec In Lab Yonathan Smith MD CHEMISTRY ORDERABLES Performing Organization Address City/[facility] Phon e Number [address] POCT Glucose (08/07/2017 7:27 AM EST) athologist Signature POC Glucose 81 65 - 199 [facility] mg/dL [facility] LABORATORY Comment: Supplemental [...] City/[facility]/ZIP Code Phon e Number [address] APTT (08/07/2017 7:04 AM [...] Smith MD HEMATOLOGY ORDERABLES Performing Organization Address City/[facility]/[place] [address] (ABNORMAL) Prothrombin Time (08/07/2017 [...] Smith MD HEMATOLOGY ORDERABLES Performing Organization Address City/[facility]/[place] [address] POCT Glucose (08/07/2017 4:03 AM EST) athologist Signature POC Glucose 93 65 - 199 [facility] mg/dL [facility] LABOR[facility]ORY Comment: Supplemental [...] City/[facility]/[place] [address] POCT Glucose (08/07/2017 12:04 AM EST) P athologist Signature POC Glucose 107 65 - 199 [facility] mg/dL [facility] Comment: Supplemental [...] City/[facility]/ZIP Code Phon e Number [address] POCT Glucose (08/06/2017 7:56 PM EST) P athologist Signature POC Glucose 178 65 - 199 [facility] mg/dL [facility] Comment: Supplemental [...] City/[facility]/[place] [address] TcPO2 (08/06/2017 2:32 PM EST) Component Value Ref Test Analysis [facility] Method Time Signature VB Text Department: Vascular Surgery Lab VASCUBASE Report Patient: [id number] (GREGORY HOANG) CPT: [id number] ICD10: I99.8 Referring Physician: YONATHAN SMITH ?? [...] Henrique Marks, VAMSI) 08 (Given - Provider: Cihquis Mcgrath RN)2022 (Given - Provider: Mira Truong, [...] - 240 Gi 1213 (Given - Provider: hCiquis Mcgrath RN - Comment: BG 141)1729 (Given [...] Marks RN) 0808 (Given - Provider: Chiquis cMgrath RN)2024 (Given - Provider: Mira Truong, VAMSI) [...] Jaramillo, VAMSI)0807 (Given - Provider: Chiquis Mcgrath, AVMSI)1159 (Given - Provider: Chiquis Mcgrath RN)1542 (Given [...]
Routine documented in this encounter Care Teams Construction Site Crossing Guard Relationship Specialty Start Date End Date Lovely Vicente MD PCP - General 04/16/[address] [place] [address] [address] [place] [address] documented as of this encounter
--- OUTSIDE RECORDS SUMMARY | 2022-03-23 09:38 | XMS_ITS | Encounter Summary ---
:1945 Author Organization [facility] [place] [address] Care Team Providers Name Role Phone Lovely Vicente MD Primary Care Provider Encounter Details Date Type Department Care Team Description 08/09/2017 Clinical Support Same Day at [facility] Canceled (D-SCHED ERROR [facility] / CORRECT ION ) [place] [address] Social History Tobacco Use Types Packs/Day [...] MD [facility] [address] [place], [place] [address] (Wo rk) 05/28/2022 Appointment Cardiology Zulma Dolan MD [facility] [address] [place] [place] [address] (Wo rk) 05/28/2022 Laboratory Appointment Lab 05/28/2022 Office Visit Cardiology Zulma Dolan MD [facility] [place] [address] Liz Poole PA [facility] [place] [address] 06/10/2022 Office Visit Dermatology Laura Scherer MD [facility] [address] [place], [place] [address] (Wo rk) documented as of this encounter Procedures Procedure Name Priority Date/Time Associated Diagnosis Comme nts OPERATIONS INTELLIGENCE 08/09/2017 12:00 AM Resul ts for this SCAN EST procedure are i n the results section. documented in this encounter Results SCAN DOC: OPERATIONS INTELLIGENCE (08/09/2017 12:00 AM EST) Narrative 08/09/2017 12:00 AM EST This result has an attachment that is no t available. Ordered by an unspecified provider. Scanning Provider MEDIA MGR SCAN EXT ORDR/RSLT documented in this encounter Visit Diagnoses Not on filedocumented in this encounter Care Teams Utility Supervisor [employer] Relationship Specialty Start Date End Date Lovely Vicente MD PCP - General 04/16/[address] [place] [address] documented as of this encounter
--- OUTSIDE RECORDS SUMMARY | 2022-03-23 09:38 | XMS_ITS | Encounter Summary ---
:1945 Author Organization [facility] [place] [address] Care Team Providers Name Role Phone Lovely Vicente MD Primary Care Provider Reason for Visit Auth/Cert Specialty Diagnoses / Procedures Referred By Contact Refer red To Contact Diagnoses Critical lower limb ischemia CELLULITIS RT FOOT Procedures EMERGENCY Referral ID Status Reason Start Date Expiration Date Visits Requ ested Visits Authorized [id number] 1 1 Encounter Details Date Type Department Care Team Description 08/11/2017 Surgery Main Operating Room Yonathan Smith (M SURG) DRESSING CHANGE Barbara Ocampo MD (FOR OTHER THAN IVAN) [facility] UNDER ANES. (WRVU 0.86) [facility] [address] [place]idd[place] [address] [place] [id number] [phone] (Wo rk) Social History Tobacco Use Types [...] addition to a pseudoaneurysm of his R EMPLOYEE PLACEMENT SPECIALIST and bilateral anterior tibial artery occlusions. Patient [...] Dorsalis Pedis (Ankle) Artery ?132 ? 0.94 ??[place]-Biphasic ? Posterior Tibial (Ankle) Artery ??154 ? 1.10 ??[place]-Biphasic ? Fourth Toe ? 67 ?0.48 ?? [...] For any problems or questions please call [phone] ZELDA Smith, shellfish grower Nurse Clinician For issues on weeknights after 5pm and weekends please call [phone] and ask for the Vascular Fellow supervisor inspection room. General Instructions None Future Appointments and Orders Future Appointments Provider Department Dept Phone 08/26/2017 4:00 PM Aurelia Rivera PA Vascular Surgery at [place] [phone] 09/07/2017 3:00 PM LAB, THREE L Lab 3L [facility] [phone] 09/07/2017 4:00 PM Luz Prescott MD Endocrinology at [place] [phone] 09/09/2017 8:00 AM Barbra Soares APRN Pain Management at [place] [phone] Please bring a list of your current [...] For any problems or questions please call [phone] ZELDA Smith, shellfish grower Nurse Clinician For issues on weeknights after 5pm and weekends please call [phone] and ask for the Vascular Fellow supervisor inspection room. documented in this encounter Medications at Time [...] Discharge Note Patient Destination: [facility] ([facility]) [address] [place] [address] Transportation: with (at bedside) Time of Discharge: by 12 noon Level of Care: swing Patient Aware: yes Family Notified: yes Md to call report to: Yissel Quintero QUILLER HAND already called RN to call report to: [phone] Shirin Wolf Office of Care Management Pager [phone] Shirin Wagner RN - 08/16/2017 10:50 AM EST [facility] has offered pt swing bed. Pt and accept bed. will transport via car. QUILLER HAND Yissel Quintero aware; d/c paperwork will be completed by 12 noon. [facility] requests pt arrival by 1400 today; QUILLER HAND, RN, and family aware. QUILLER HAND called [facility] and was told that they prefer pt to arrive with wound vac dressing applied but clamped. QUILLER HAND applied new wound vac dressing. RN has [facility] number to call report. PASSR completed; QUILLER HAND paged to request provider signature in highlighted space. Indigo from [facility] notified via email that home wound vac now cancelled; [facility] has picked up from room and order cancelled. Packet started and provided to munitions handler supervisor. Medicare important message explained to patient, patient signed. Copy provided to patient and signature page to OCM for inclusion in pt EMR. Radha Georges - 08/16/2017 10:34 AM EST Office of Care Management/Inner Tube Cutter Patient Name: Gregory Hoang : 1945 Patient has been offered a swing bed at [facility]. The patient will be transported by private transportation. No MD to MD report necessary Please call Nursing Report to [phone], ask for sharepoint architect. Info to accompany patient: Narcotic Prescriptions Copies of Medication Administration Records and IV sheets for past 10 days. Plan: Inner Tube Cutter will be available to the patient and Convenience Store Clerk-RN and/or Cool Roofing Installer for further assistance. Patient will be discharged to: [facility] [address] [place] [address] [id number] Radha Powers, Inner Tube Cutter Mira Black, VAMSI - 08/15/2017 10:05 PM EST [address] Flores to ask if he wanted to hold metoprolol dose. BP 95/58. OK to hold this dose Courtney Brito - 08/15/2017 3:26 PM EST Office of Care Management(OCM)/Inner Tube Cutter(RS)/ D/C Planning re : Patient is medically [...] status. 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 Vac in place. Rehab [...] referral to: [facility] PHONE: [phone] FAX: [phone] CM spoke with RS who said that [...] rehab. Await recommendations from PT. Covering pager #[phone]. 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 Small Lot Operator Kaitlin Saha, RN Pager #[phone] Payam Rosales - 08/13/2017 2:37 PM EST [facility] Encounter Note Patient Name: Gregory Hoang : [id number] MR#: [id number] Admit Date: 08/06/2017 1:41 PM Hospital Day 7 days Narrative: Visited to introduce and assess acceptance of [facility] services. Pt was awake, alert, oriented and in chair and family was there. Assessment:Patient coping positively with stresses of illness/hospitalization at this time. Pt says that he is hoping to get better and his family was there. Pt says that he has family care and supportand taking one day at time. Intervention and Outcome: Provided emotional support and encouraging presence. 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 Patient [...] - 08/12/2017 1:06 PM EST The patient/customer solutions representative has been provided a list of Home Health Agencies/DME vendors which serve their preferred geographic area. A letter describing our affiliations was reviewed with them and theywere educated about their right to choose where referrals are placed. Patient requests referral to [facility] [employer]. PHONE: [phone] FAX: [phone]. And Home NPWT (Negative Pressure Wound Therapy) aka wound vac device made available to pt. Serial # confirmed. Reviewed [facility] Proof of Delivery/Assignment of Benefits Statement(POD/AOB) Form w patient or authorized agent signing on behalf of patient. Copy of POD/AOB provided to pt and other copy faxed to [employer] @ fax# [phone] Expected date of discharge: 08/12/2017. 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 Address: [address] [place] [address] [place] [address] (home) Mobile: Telephone Information: Referring Provider: No [...] [facility] ??? PRO CABG, ARTERIAL, SINGLE N/A 07/07/2017 @CABG, USING ARTERIAL GRAFT;SINGLE ARTERIAL GRAFT (WRVU 33.75) performed by Yuan Retana MD at [facility] OR ??? 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 Heparin gtt continues to run. Pt a/ox4. [...] 10:45 AM EST ANGIO NURSING DATABASE Name: GRGEORY HOANG Date of : 1945 AGE 72 y.o. Address: [address] [place] [address] [place] [address] (home) Mobile: Telephone Information: Referring Provider: No [...] [facility] ??? PRO CABG, ARTERIAL, SINGLE N/A 07/07/2017 @CABG, USING ARTERIAL GRAFT;SINGLE ARTERIAL GRAFT (WRVU 33.75) performed by Yuan Retana MD at [facility] OR ??? 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 Unsuccessful draw attempt, another patient svcs mgr will come [facility] to collect blood for PTT test. 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 Vascular resident supervisor inspection room and will forward result to the team prior to rounds. 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 Patient [...] [facility] ??? PRO CABG, ARTERIAL, SINGLE N/A 07/07/2017 @CABG, USING ARTERIAL GRAFT;SINGLE ARTERIAL GRAFT (WRVU 33.75) performed by Yuan Retana MD at [facility] MA[facility] OR ??? PRO CABG, ARTERY-VEIN, TWO [...] [facility] Functional Status/Social Hx: Quit smoking [...] left blue toes with CTA showing R EMPLOYEE PLACEMENT SPECIALIST pseudoaneurysm (now thrombosed) and occluded ATs bilaterally. [...] 2.5x80 5. Completion RLE angiogram 6. L EMPLOYEE PLACEMENT SPECIALIST angiogram 7. 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 - L EMPLOYEE PLACEMENT SPECIALIST angriogram demonstrated: High femoral bifurcation over the proximal half of the femoral head. L EMPLOYEE PLACEMENT SPECIALIST access in the distal L EMPLOYEE PLACEMENT SPECIALIST. - Closure device: Mynx Technical Procedure: The [...] for a 45cm 5F Destination. V18 and Prole and QuickCross catheters were used to select [...] 5F. A stationed picture of the L EMPLOYEE PLACEMENT SPECIALIST was performed as the patient was noted to have a very high bifurcation. Access appeared in the distal R EMPLOYEE PLACEMENT SPECIALIST. Closure and sheath removal was performed with [...] PM EST 1440 report called to 5 gonzales nurse eTssa AGUSTIN documented in this encounter Miscellaneous Notes Plan of Care - Dory Truong RN - 08/16/2017 10:51 AM EST Problem: Patient Care Overview Goal: Plan of Care Review Outcome: Outcome (s) achieved Date Met: 08/16/17 08/14/17 1939 08/16/17 8771 Coping/Psychosocial Plan Of Care Reviewed With -- [...] sit/sit to supine -- Bed Mobility Goal, [place] Level independent -- Bed Mobility Goal, Date [...] days -- Transfer Training Goal, Activity Type dbq-ob-hloxm/dtdbu-te-bof -- Transfer Train Goal, [place] Level conditional independence -- Transfer Train Goal, [...] call cabello within reach, Hourly rounding by RN/CEMENT CAR DUMPER. Bed alarm / Chair alarm. Patient-specific fall [...] Smith MD - 08/15/2017 6:28 PM EST [facility] Operative Note Patient Name: Gregory Hoang : [id number] MR#: [id number] Case Date: 08/09/2017 Surgeon: Surgeon(s) and Role: [...] 2.5x80 5. Completion RLE angiogram 6. L EMPLOYEE PLACEMENT SPECIALIST angiogram 7. Mynx closure Precautions/Restrictions: fall, sternal [...] other (see comments) (or swing bed) Pager: [phone] BASSAM ELIAS, PT 08/14/2017 Inpatient Physical Therapy [...] to Achieve by discharge Gait Training Goal, [place] Level conditional independence;set up required Gait Training [...] spoke with [facility] KANWAL Sandhu RN who said that they do not anticipate any beds over the weekend. Reviewed with patient/ that they need to be aware that patient will need to take the first bed offered at the facilities that they make referrals to. Their choices are: 1- [facility] PHONE: [phone] FAX: [phone] 2- [facility] ([facility]) [address] [place] [address] 3- [facility]) [address] [place] [address] I have discussed Medicare/Private Insurance [...] RS/CM on Wednesday to follow-up. Covering pager #[phone] for today. Plan of Care - Henrique [...] with additional findings of pseudoaneurysm on R EMPLOYEE PLACEMENT SPECIALIST and bilateral anterior tibial artery occlusions. Was [...] an outpatient once discharged. Have patient call [phone] to set up an appointment. Follow-up: Dermatology will sign-off for now. Please do not hesitate to contact us if you have any questions orconcerns. Impression and Recommendations discussed with primary team on 08/13/2017. Karo Henderson MD Resident in Dermatology Section of Dermatology, Department of Surgery [facility] Pager [phone] Patient seen and evaluated with staff Integration Manager: Halima Cordero MD Section of Dermatology General [...] 2.5x80 5. Completion RLE angiogram 6. L EMPLOYEE PLACEMENT SPECIALIST angiogram 7. Mynx closure Active Non-Hospital Problems [...] home with home health ([facility] PT&OT) Pager: [phone] YASIR TELLO OT 08/12/2017 Occupational Therapy Rehabilitation [...] 2.5x80 5. Completion RLE angiogram 6. L EMPLOYEE PLACEMENT SPECIALIST angiogram 7. Mynx closure Past Medical History: [...] with 24/7 assistance and maximal services) Pager: [phone] NICHOLAS MORA, JESSIE 08/12/2017 Physical Therapy Rehabilitation [...] sit/sit to supine -- Bed Mobility Goal, [place] Level independent -- Bed Mobility Goal, Outcome Achieved -- goal ongoing Goal: Gait Training Goal Stand Alone Therapy Goal Outcome: Ongoing (Interventions Implemented as Appropriate) 08/11/17 1310 08/12/17 1510 Gait Training Goal Gait Training Goal, Date Established 08/11/17 -- Gait Training Goal, Time to Achieve 5 - 7 days -- Gait Training Goal, [place] Level conditional independence -- Gait Training Goal, [...] days -- Transfer Training Goal, Activity Type uln-en-nagsd/athhb-kw-hge -- Transfer Train Goal, [place] Level conditional independence -- Transfer Training Goal, [...] Smith MD - 08/11/2017 2:52 PM EST [facility] Operative Note Patient Name: Gregory Hoang : [id number] MR#: [id number] Case Date: 08/11/2017 Surgeon: Surgeon(s) and Role: [...] 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 Completion RLE angiogram 6. L EMPLOYEE PLACEMENT SPECIALIST angiogram 7. Mynx closure He is very [...] Anticipated Discharge Disposition: inpatient rehabilitation facility Pager: [phone] LAWRENCE GONZALEZ, PT 08/11/2017 Physical Therapy Rehabilitation [...] to sit/sit to supine Bed Mobility Goal, [place] Level independent Goal: Gait Training Goal Stand Alone Therapy Goal Outcome: Ongoing (Interventions Implemented as Appropriate) 08/11/17 1310 Gait Training Goal Gait Training Goal, Date Established 08/11/17 Gait Training Goal, Time to Achieve 5 - 7 days Gait Training Goal, [place] Level conditional independence Gait Training Goal, Assist [...] 7 days Transfer Training Goal, Activity Type ayh-cn-qapal/suvlz-rg-qop Transfer Train Goal, [place] Level conditional independence Plan of Care - [...] call cabello within reach, Hourly rounding by RN/CEMENT CAR DUMPER. Bed alarm / Chair alarm. ? Patient-specific [...] Hospitalizations Within the Past 30 Days: [facility] 07/20/2017 Anticipated Length Of Stay (If known): Expected Length of Hospitalization: 5-7 days2-3 days Current Decision-Making Capacity: Alert and oriented x 4 Advance Care Planning: on file Kisha Hoang [facility] [phone] Current Coping/Education/Information Needs: pt and spouse state [...] Health/Prescription Coverage: Primary Insurance: MEDICARE Secondary Insurance: [employer] [place] Prescription Coverage: See above [facility]erred Pharmacy: [facility] Other: N/A Primary Care Provider: Lovely Vicente MD [phone] Patient/Caregiver Goals of Treatment: Patient plans to [...] of care planning. Kaitlin Saha RN Pager: [phone] Plan of Care - Melba Jaramillo RN [...] Overview Goal: Plan of Care Review 08/08/17 9544 Coping/Psychosocial Plan Of Care Reviewed With patient [...] call cabello within reach, Hourly rounding by RN/CEMENT CAR DUMPER. Bed alarm / Chair alarm. Patient-specific fall [...] at bedside and MD TEAM Carrying pager [phone] contacted (via Radio page) and notified of [...] MD [facility] [address] [place], [place] [address] (Wo rk) 05/28/2022 Appointment Cardiology Zulma Dolan MD [facility] [address] [place], [place] [address] (Wo rk) 05/28/2022 Laboratory Appointment Lab 05/28/2022 Office Visit Cardiology Zulma Dolan MD [facility] [place] [address] Liz Poole PA [facility] [place] [address] 06/10/2022 Office Visit Dermatology Laura Scherer MD [facility] DR TEJA GR[place]DERMAT [place], [place] [address] (Wo rk) documented as of [...] TYPE AND SCREEN Routine 08/09/2017 1:10 AM ([facility]/CGP/SHANDA) EST BASIC METABOLIC PANEL [...] 199 [facility] mg/dL [facility] Comment: Supplemental ranges: <140 mg/dL before meals <180 mg/dL all other times of the day Specimen Anatomical Collection Method Collection Time Receive d Time (Source) Location / / Volume Laterality Blood specimen 08/16/2017 7:28 AM 018 7:28 (specimen) EST AM EST Yonathan Smith MD POINT OF CARE TEST ORDERABLE S Performing Organization Address City/State/[place] [address] (ABNORMAL) Differential, Automated (08/16/2017 5:08 AM EST) [facility] gist Method Time Signature Neutrophils % 73.9 % [facility] LABORATORY Neutr Abs (ANC) 5.37 1.70 - [facility] 6.10 [facility] x10(3)/[facility] LABORATORY Lymphocytes % 10.1 % [facility] Lymphocytes Abs 0.7 (L) 0.9 - 3.2 [facility] x10(3)/[facility] LABORATORY Monocytes % 10.1 % [facility] LABORATORY Monocyte Abs 0.7 0.3 - 0.9 [facility] x10(3)/[facility] LABORATORY Eosinophils % 5.1 % [facility] LABOR[facility]ORY Eosinophils Abs 0.4 0.0 - 0.4 [facility] x10(3)/[facility] LABORATORY Basophils % 0.4 % [facility] LABORATORY Basophils Abs 0.0 0.0 - 0.1 [facility] x10(3)/[facility] LABORATORY Immature Gran % 0.40 % [facility] [...] 0.04 x10(3)/[facility] MAR Y [facility] LABORATORY Specimen Anatomical Collection Method Collection Time Receive d Time (Source) Location / / Volume Laterality Blood specimen 08/16/2017 5:08 AM 018 5:20 (specimen) EST AM EST Resulting Agency Comment Spec In Lab Yonathan Smith MD HEMATOLOGY ORDERABLES Performing Organization Address City/State/ZIP Code Phon e Number [address] (ABNORMAL) Hemogram (08/16/2017 5:08 AM EST) Analysis Performed At Patho logist Time Signature WBC 7.3 4.0 - 9.5 [facility] x10(3)/[facility] LABORATORY RBC 3.36 (L) 4.58 - [facility] 5.54 [facility] x10(6)/[facility] LABORATORY Hemoglobin 9.7 (L) 13.7 - [facility] 16.5 gm/dL [facility] LABORATORY Hematocrit 30.3 (L) 40.5 - [facility] 48.5 % [facility] LABORATORY MCV 90.2 82.9 - [facility] 93.1 [facility] LABORATORY MCH 28.9 27.5 - [place] 32.1 pg [facility] LABORATORY MCHC 32.0 32.0 - [place] 35.7 gm/dL [facility] LABORATORY Platelets 282 145 - 357 [facility] x10(3)/[facility] LABORATORY RDWSD 53.9 (H) 36.0 - [facility] RYAN 45.0 [facility] LABORATORY RDWCV 16.5 (H) 11.4 - [facility] RYAN 13.8 % [facility] LABORATORY MPV 9.0 7.6 - 12.9 [facility] LABORATORY nRBC % Auto 0.0 % [facility] LABORATORY nRBC Abs Auto 0.000 0.000 - [place] 0.000 [facility] x10(3)/[facility] LABORATORY Specimen Anatomical Collection Method Collection Time Receive d Time (Source) Location / / Volume Laterality Blood specimen 08/16/2017 5:08 AM 018 5:20 (specimen) EST AM EST Resulting Agency Comment Spec In Lab Yonathan Smith MD HEMATOLOGY ORDERABLES Performing Organization Address City/State/ZIP Code Phon e Number [facility] [place] [address] (ABNORMAL) Basic Metabolic Panel (non-fasting) (08/16/2017 5:08 AM EST) P athologist Signature Glucose Lvl 141 65 - 199 [facility] mg/dL [facility] Comment: Diabetes: >=200 mg/dL plus symp toms BUN 29 (H) 10 - 20 mg/dL [facility] LABORATORY Creatinine 1.25 0.80 - 1.50 mg/dL [place] [...] or in patients with acute kidney failure. http://Xolve.ServiceNow/DHnkdep http://Xolve.ServiceNow/DHMCnkf Specimen Anatomical Collection Method Collection Time Receive d Time (Source) Location / / Volume Laterality Blood specimen 08/16/2017 5:08 AM 018 5:20 (specimen) EST AM EST Resulting Agency Comment Spec In Lab Yonathan Smith MD CHEMISTRY ORDERABLES Performing Organization Address City/State/ZIP Code Phon e Number [address] (ABNORMAL) Prothrombin Time (08/16/2017 [...] Address City/State/ZIP Code Phon e Number [address] POCT Glucose (08/16/2017 4:09 AM EST) athologist Signature POC Glucose 147 65 - 199 [facility] mg/dL [facility] Comment: Supplemental ranges: <140 mg/dL before meals <180 mg/dL all other times of the day Specimen Anatomical Collection Method Collection Time Receive d Time (Source) Location / / Volume Laterality Blood specimen 08/16/2017 4:09 AM 018 4:09 (specimen) EST AM EST Yonathan Smith MD POINT OF CARE TEST ORDERABLE S Performing Organization Address City/State/ZIP Code Phon e Number [address] POCT Glucose (08/15/2017 11:56 PM EST) athologist Signature POC Glucose 176 65 - 199 [facility] LABORATORY Comment: Supplemental ranges: <140 mg/dL before meals <180 mg/dL all other times of the day Specimen Anatomical Collection Method Collection Time Receive d Time (Source) Location / / Volume Laterality Blood specimen 08/15/2017 11:56 8 (specimen) PM EST 11:56 PM EST Yonathan Smith MD POINT OF CARE TEST ORDERABLE S Performing Organization Address City/State/[place] [address] POCT Glucose (08/15/2017 8:05 PM EST) athologist Signature POC Glucose 136 65 - 199 [facility] mg/dL [facility] LABORATORY Comment: Supplemental ranges: <140 [...] [facility] [place] [address] (ABNORMAL) POCT Glucose (08/15/2017 4:50 PM EST) athologist Signature POC Glucose 232 (H) 65 - 199 [place] [facility] mg/dL [facility] LABORATORY Comment: Supplemental ranges: <140 mg/dL before meals <180 mg/dL all other times of the day Specimen Anatomical Collection Method Collection Time Receive d Time (Source) Location / / Volume Laterality Blood specimen 08/15/2017 4:50 PM 018 4:50 (specimen) EST PM EST Yonathan Smith MD POINT OF CARE TEST ORDERABLE S Performing Organization Address City/State/[place] [address] POCT Glucose (08/15/2017 12:04 PM EST) athologist Signature POC Glucose 135 65 - 199 [place] [facility] mg/dL [facility] LABORATORY Comment: Supplemental ranges: <140 mg/dL before meals <180 mg/dL all other times of the day Specimen Anatomical Collection Method Collection Time Receive d Time (Source) Location / / Volume Laterality Blood specimen 08/15/2017 12:04 8 (specimen) PM EST 12:04 PM EST Yonathan Smith MD POINT OF CARE TEST ORDERABLE S Performing Organization Address City/State/ZIP Code Phon e Number [address] POCT Glucose (08/15/2017 7:36 AM EST) P athologist Signature POC Glucose 124 65 - 199 [facility] mg/dL [facility] LABORATORY Comment: Supplemental ranges: <140 mg/dL before meals <180 mg/dL all other times of the day Specimen Anatomical Collection Method Collection Time Receive d Time (Source) Location / / Volume Laterality Blood specimen 08/15/2017 7:36 AM 018 7:36 (specimen) EST AM EST Yonathan Smith MD POINT OF CARE TEST ORDERABLE S Performing Organization Address City/State/ZIP Code Phon e Number [address] (ABNORMAL) Differential, Automated (08/15/2017 6:22 AM EST) Patholo gist Method Time Signature Neutrophils % 76.1 % [facility] LABORATORY Neutr Abs (ANC) 6.62 (H) 1.70 - [facility] 6.10 [facility] x10(3)/[facility] LABORATORY Lymphocytes % 9.3 % [facility] LABORATORY Lymphocytes Abs 0.8 (L) 0.9 - 3.2 [facility] x10(3)/[facility] LABORATORY Monocytes % 9.4 % [facility] LABORATORY Monocyte Abs 0.8 0.3 - 0.9 [facility] x10(3)/[facility] LABORATORY Eosinophils % 4.0 % [facility] LABORATORY Eosinophils Abs 0.4 0.0 - 0.4 [facility] x10(3)/[facility] LABORATORY Basophils % 0.6 % [facility] LABORATORY Basophils Abs 0.0 0.0 - 0.1 [facility] x10(3)/[facility] LABORATORY Immature Gran % [...] Address City/State/ZIP [place] [address] (ABNORMAL) Hemogram (08/15/2017 6:22 AM EST) Analysis Performed At Patho logist Time Signature WBC 8.7 4.0 - 9.5 [facility] x10(3)/[facility] LABORATORY RBC 3.21 (L) 4.58 - [facility] 5.54 [facility] x10(6)/[facility] LABORATORY Hemoglobin 9.1 (L) 13.7 - [facility] 16.5 gm/dL [facility] LABORATORY Hematocrit 29.0 (L) 40.5 - [facility] 48.5 % [facility] LABORATORY MCV 90.3 82.9 - [facility] 93.1 [facility] LABORATORY MCH 28.3 27.5 - [facility] 32.1 pg [facility] LABORATORY MCHC 31.4 (L) 32.0 - [facility] 35.7 gm/dL [facility] LABORATORY Platelets 254 145 - 357 [facility] x10(3)/[facility] LABORATORY RDWSD 53.9 (H) 36.0 - [facility] 45.0 [facility] LABORATORY RDWCV 16.3 (H) 11.4 - [facility] 13.8 % [facility] LABORATORY MPV 8.8 7.6 - 12.9 [facility] LABORATORY nRBC % Auto 0.0 % [facility] LABORATORY nRBC Abs Auto 0.000 0.000 - [facility] 0.000 [facility] x10(3)/[facility] LABORATORY Specimen Anatomical Collection Method Collection Time Receive d Time (Source) Location / / Volume Laterality Blood specimen 08/15/2017 6:22 AM 018 6:33 (specimen) EST AM EST Resulting Agency Comment Spec In Lab Yonathan Smith MD HEMATOLOGY ORDERABLES Performing Organization Address City/State/ZIP [place] [address] (ABNORMAL) Basic Metabolic Panel (non-fasting) (08/15/2017 6:22 AM EST) athologist Signature Glucose Lvl 118 65 - 199 [facility] mg/dL [facility] LABORATORY Comment: [...] or in patients with acute kidney failure. [email or web address] [email or web address]/DHMCnkf Specimen Anatomical Collection Method Collection Time Receive d Time (Source) Location / / Volume Laterality Blood specimen 08/15/2017 6:22 AM 018 6:33 (specimen) EST AM EST Resulting Agency Comment Spec In Lab Yonathan Smith MD CHEMISTRY ORDERABLES Performing Organization Address City/[facility]/[place] [address] (ABNORMAL) Prothrombin Time (08/15/2017 [...] [facility] [place] [address] POCT Glucose (08/15/2017 4:33 AM EST) P athologist Signature POC Glucose 164 65 - 199 [facility] mg/dL [facility] LABORATORY Comment: Supplemental ranges: <140 [...] [facility] [place] [address] POCT Glucose (08/15/2017 12:12 AM EST) athologist Signature POC Glucose 89 65 - 199 [facility] mg/dL [facility] LABORATORY Comment: Supplemental ranges: <140 mg/dL before meals <180 mg/dL all other times of the day Specimen Anatomical Collection Method Collection Time Receive d Time (Source) Location / / Volume Laterality Blood specimen 08/15/2017 12:12 8 (specimen) AM EST 12:12 AM EST Yonathan Smith MD POINT OF CARE TEST ORDERABLE S Performing Organization Address City/State/[place] [address] (ABNORMAL) POCT Glucose (08/14/2017 8:07 PM EST) athologist Signature POC Glucose 204 (H) 65 - 199 [facility] LABORATORY Comment: Supplemental ranges: <140 mg/dL before meals <180 mg/dL all other times of the day Specimen Anatomical Collection Method Collection Time Receive d Time (Source) Location / / Volume Laterality Blood specimen 08/14/2017 8:07 PM 018 8:07 (specimen) EST PM EST Yonathan Smith MD POINT OF CARE TEST ORDERABLE S Performing Organization Address City/State/[place] [address] POCT Glucose (08/14/2017 5:11 PM EST) athologist Signature POC Glucose 174 65 - 199 [facility] LABORATORY Comment: Supplemental ranges: <140 mg/dL before meals <180 mg/dL all other times of the day Specimen Anatomical Collection Method Collection Time Receive d Time (Source) Location / / Volume Laterality Blood specimen 08/14/2017 5:11 PM 018 5:11 (specimen) EST PM EST Yonathan Smith MD POINT OF CARE TEST ORDERABLE S Performing Organization Address City/State/[place] [address] POCT Glucose (08/14/2017 12:10 PM EST) athologist Signature POC Glucose 141 65 - 199 [facility] mg/dL [facility] LABORATORY Comment: Supplemental ranges: <140 mg/dL before meals <180 mg/dL all other times of the day Specimen Anatomical Collection Method Collection Time Receive d Time (Source) Location / / Volume Laterality Blood specimen 08/14/2017 12:10 8 (specimen) PM EST 12:10 PM EST Yonathan Smith MD POINT OF CARE TEST ORDERABLE S Performing Organization Address City/State/ZIP Code Phon e Number [address] POCT Glucose (08/14/2017 8:07 AM EST) athologist Signature POC Glucose 158 65 - 199 [facility] mg/dL [facility] LABORATORY Comment: Supplemental ranges: <140 mg/dL before meals <180 mg/dL all other times of the day Specimen Anatomical Collection Method Collection Time Receive d Time (Source) Location / / Volume Laterality Blood specimen 08/14/2017 8:07 AM 018 8:07 (specimen) EST AM EST Yonathan Smith MD POINT OF CARE TEST ORDERABLE S Performing Organization Address City/State/ZIP Code Phon e Number [address] (ABNORMAL) Differential, Automated (08/14/2017 4:52 AM EST) [facility] gist Method Time Signature Neutrophils % 78.6 % [facility] LABORATORY Neutr Abs (ANC) 7.70 (H) 1.70 - [facility] 6.10 [facility] x10(3)/[facility] L LABORATORY Lymphocytes % 7.8 % [facility] LABORATORY Lymphocytes Abs 0.8 (L) 0.9 - 3.2 [facility] x10(3)/[facility] LABORATORY Monocytes % 8.8 % [facility] LABORATORY Monocyte Abs 0.9 0.3 - 0.9 [facility] x10(3)/[facility] LABORATORY Eosinophils % 4.0 % [facility] LABORATORY Eosinophils Abs 0.4 0.0 - 0.4 [facility] x10(3)/[facility] LABORATORY Basophils % 0.5 % [facility] LABORATORY Basophils Abs 0.0 0.0 - 0.1 [facility] x10(3)/[facility] LABORATORY Immature Gran % 0.30 % [facility] [...] 0.04 x10(3)/[facility] MAR Y [facility] LABORATORY Specimen Anatomical Collection Method Collection Time Receive d Time (Source) Location / / Volume Laterality Blood specimen 08/14/2017 4:52 AM 018 5:08 (specimen) EST AM EST Resulting Agency Comment Spec In Lab Yonathan Smith MD HEMATOLOGY ORDERABLES Performing Organization Address City/State/[place] [address] (ABNORMAL) Hemogram (08/14/2017 4:52 AM EST) Analysis Performed At Patho logist Time Signature WBC 9.8 (H) 4.0 - 9.5 [facility] x10(3)/[facility] LABORATORY RBC 3.32 (L) 4.58 - [facility] 5.54 [facility] x10(6)/[facility] LABORATORY Hemoglobin 9.5 (L) 13.7 - [facility] 16.5 gm/dL [facility] LABORATORY Hematocrit 30.3 (L) 40.5 - [facility] RYAN 48.5 % [facility] LABORATORY MCV 91.3 82.9 - [facility] 93.1 fL [facility] LABORATORY MCH 28.6 27.5 - [place] 32.1 pg [facility] LABORATORY MCHC 31.4 (L) 32.0 - [facility] 35.7 gm/dL [facility] LABORATORY Platelets 263 145 - 357 [facility] x10(3)/[facility] LABORATORY RDWSD 54.8 (H) 36.0 - [facility] 45.0 [facility] LABORATORY RDWCV 16.5 (H) 11.4 - [facility] 13.8 % [facility] LABORATORY MPV 9.1 7.6 - 12.9 [facility] LABORATORY nRBC % Auto 0.0 % [facility] LABORATORY nRBC Abs Auto 0.000 0.000 - [facility] RYAN 0.000 [facility] x10(3)/[facility] LABORATORY Specimen Anatomical Collection Method Collection Time Receive d Time (Source) Location / / Volume Laterality Blood specimen 08/14/2017 4:52 AM 018 5:08 (specimen) EST AM EST Resulting Agency Comment Spec In Lab Yonathan Smith MD HEMATOLOGY ORDERABLES Performing Organization Address City/[facility] [place] [address] (ABNORMAL) Prothrombin Time (08/14/2017 [...] Performing Organization Address City/[facility] [place] [place] [address] (ABNORMAL) Basic Metabolic Panel (non-fasting) (08/14/2017 4:52 AM EST) P athologist Signature Glucose Lvl 135 65 - 199 [facility] mg/dL [facility] LABORATORY Comment: Diabetes: >=200 mg/dL plus symp toms BUN 25 (H) 10 - 20 mg/dL [facility] LABORATORY Creatinine 1.36 0.80 - 1.50 mg/dL [place] [...] or in patients with acute kidney failure. [email or web address]/DHnkdep [email or web address]/DHMCnkf Specimen Anatomical Collection Method Collection Time Receive d Time (Source) Location / / Volume Laterality Blood specimen 08/14/2017 4:52 AM 018 5:08 (specimen) EST AM EST Resulting Agency Comment Spec In Lab Yonathan Smith MD CHEMISTRY ORDERABLES Performing Organization Address City/State/ZIP [place] [address] POCT Glucose (08/14/2017 3:56 AM EST) P athologist Signature POC Glucose 135 65 - 199 [facility] mg/dL [facility] LABORATORY Comment: Supplemental ranges: <140 mg/dL before meals <180 mg/dL all other times of the day Specimen Anatomical Collection Method Collection Time Receive d Time (Source) Location / / Volume Laterality Blood specimen 08/14/2017 3:56 AM 018 3:56 (specimen) EST AM EST Yonatahn Smith MD POINT OF CARE TEST ORDERABLE S Performing Organization Address City/State/[place] [address] POCT Glucose (08/13/2017 11:13 PM EST) athologist Signature POC Glucose 118 65 - 199 [place] [facility] mg/dL [facility] LABORATORY Comment: Supplemental ranges: <140 [...] [facility] [place] [address] (ABNORMAL) POCT Glucose (08/13/2017 8:08 PM EST) athologist Signature POC Glucose 204 (H) 65 - 199 [facility] mg/dL [facility] LABORATORY Comment: Supplemental ranges: <140 mg/dL before meals <180 mg/dL all other times of the day Specimen Anatomical Collection Method Collection Time Receive d Time (Source) Location / / Volume Laterality Blood specimen 08/13/2017 8:08 PM 018 8:08 (specimen) EST PM EST Yonathan Smith MD POINT OF CARE TEST ORDERABLE S Performing Organization Address City/State/[place] [address] POCT Glucose (08/13/2017 4:02 PM EST) athologist Signature POC Glucose 145 65 - 199 [place] [facility] mg/dL [facility] LABORATORY Comment: Supplemental ranges: <140 mg/dL before meals <180 mg/dL all other times of the day Specimen Anatomical Collection Method Collection Time Receive d Time (Source) Location / / Volume Laterality Blood specimen 08/13/2017 4:02 PM 018 4:02 (specimen) EST PM EST Yonathan Smith MD POINT OF CARE TEST ORDERABLE S Performing Organization Address City/State/ZIP Code Phon e Number [address] POCT Glucose (08/13/2017 11:31 AM EST) athologist Signature POC Glucose 179 65 - 199 [facility]dL [facility] LABORATORY Comment: Supplemental ranges: <140 [...] [facility] [place] [address] (ABNORMAL) POCT Glucose (08/13/2017 10:16 AM EST) athologist Signature POC Glucose 211 (H) 65 - 199 [facility] mg/dL [facility] LABORATORY Comment: Supplemental ranges: <140 mg/dL before meals <180 mg/dL all other times of the day Specimen Anatomical Collection Method Collection Time Receive d Time (Source) Location / / Volume Laterality Blood specimen 08/13/2017 10:16 8 (specimen) AM EST 10:16 AM EST Yonathan Smith MD POINT OF CARE TEST ORDERABLE S Performing Organization Address City/State/ZIP Code Phon e Number [address] JULIAN, legs, multiple levels (08/13/2017 7:42 AM EST) Component Value Ref Test Analysis Performed At [facility] gist Range Method Time Signature VB Text Department: Vascular Surgery Lab VASCUBASE Report Patient: [id number] (GREGORY HOANG) CPT: 75578 ICD10: I99.8 Referring Physician: YONATHAN SMITH ?? Indications: s/p R 1,2,3 toe amps with red left foot, need n ew baseline Diabetes mellitus: yes ICD10 Diagnosis Code: I99.8 Findings: Right ?Pressure (mm Hg) ?? JULIAN ??Waveform ?TBI ?? Brachial Artery ?138 ? Dorsalis Pedis (Ankle) Arter y ?132 ? 0.94 ??[place]- Biphasic ? Posterior Tibial (Ankle) Art anila ??154 ? 1.10 ??[place]-Biphasic ? Fourth Toe ? 67 ? 0.48 [...] 65 - 199 [place] [facility] mg/dL [facility] LABORATORY Comment: Supplemental ranges: <140 mg/dL before meals <180 mg/dL all other times of the day Specimen Anatomical Collection Method Collection Time Receive d Time (Source) Location / / Volume Laterality Blood specimen 08/13/2017 7:33 AM 018 7:33 (specimen) EST AM EST Yonathan Smith MD POINT OF CARE TEST ORDERABLE S Performing Organization Address City/State/Z[place] [address] (ABNORMAL) Differential, Automated (08/13/2017 5:33 AM EST) [facility] Method Time Signature Neutrophils % 77.8 % [facility] LABORATORY Neutr Abs (ANC) 7.83 (H) 1.70 - [facility] 6.10 [facility] x10(3)/[facility] LABORATORY Lymphocytes % 8.4 % [facility] LABORATORY Lymphocytes Abs 0.8 (L) 0.9 - 3.2 [facility] x10(3)/[facility] LABORATORY Monocytes % 8.3 % [facility] LABORATORY Monocyte Abs 0.8 0.3 - 0.9 [facility] x10(3)/[facility] LABORATORY Eosinophils % 4.6 % [facility] LABORATORY Eosinophils Abs 0.5 (H) 0.0 - 0.4 [facility] x10(3)/[facility] LABORATORY Basophils % 0.5 % [facility] LABORATORY Basophils Abs 0.0 0.0 - 0.1 [facility] x10(3)/[facility] LABORATORY Immature Gran % 0.40 % [facility] [...] 0.04 0.00 - 0.04 x10(3)/[facility]L [facility] Y [facility] LABORATORY Specimen Anatomical Collection Method Collection Time Receive d Time (Source) Location / / Volume Laterality Blood specimen 08/13/2017 5:33 AM 01/19/2 018 6:04 (specimen) EST AM EST Resulting Agency Comment Spec In Lab Yonathan Smith MD HEMATOLOGY ORDERABLES Performing Organization Address City/State/ZIP Code Phon e Number [address] (ABNORMAL) Hemogram (08/13/2017 5:33 AM EST) Analysis Performed At Patho logist Time Signature WBC 10.1 (H) 4.0 - 9.5 [facility] x[facility](3[facility] LABORATORY RBC 3.21 (L) 4.58 - [place] [facility] 5.54 [facility] x10(6)/[facility] LABORATORY Hemoglobin 9.2 (L) 13.7 - [facility] 16.5 gm/dL [facility] LABORATORY Hematocrit 29.6 (L) 40.5 - [facility] 48.5 % [facility] LABORATORY MCV 92.2 82.9 - [facility] 93.1 [facility] LABORATORY MCH 28.7 27.5 - [place] [facility] 32.1 pg [facility] LABORATORY MCHC 31.1 (L) 32.0 - [place] 35.7 gm/dL [facility] LABORATORY Platelets 263 145 - 357 [facility] x10(3)/[facility] LABORATORY RDWSD 54.8 (H) 36.0 - [place] [facility] 45.0 [facility] LABORATORY RDWCV 16.4 (H) 11.4 - [facility] R[facility] 13.8 % [facility] LABORATORY MPV 9.2 7.6 - 12.9 [facility] LABORATORY nRBC % Auto 0.0 % [facility] LABORATORY nRBC Abs Auto 0.000 0.000 - [place] [facility] 0.000 [facility] x10(3)/[facility] LABORATORY Specimen Anatomical Collection Method Collection Time Receive d Time (Source) Location / / Volume Laterality Blood specimen 08/13/2017 5:33 AM 018 6:04 (specimen) EST AM EST Resulting Agency Comment Spec In Lab Yonathan Smith MD HEMATOLOGY ORDERABLES Performing Organization Address City/State/[place] [address] (ABNORMAL) Prothrombin Time (08/13/2017 [...] Address City/State/[place] [address] (ABNORMAL) Basic Metabolic Panel (non-fasting) (08/13/2017 5:33 AM EST) athologist Signature Glucose Lvl 126 65 - 199 [facility] mg/dL [facility] LABORATORY Comment: Diabetes: >=200 mg/dL plus symp toms BUN 18 10 - 20 mg/dL [facility] LABORATORY Creatinine 1.16 0.80 - 1.50 mg/dL [place] [...] or in patients with acute kidney failure. [email or web address] [email or web address]/DHMCnkf Specimen Anatomical Collection Method Collection Time Receive d Time (Source) Location / / Volume Laterality Blood specimen 08/13/2017 5:33 AM 018 6:04 (specimen) EST AM EST Resulting Agency Comment Spec In Lab Yonathan Smith MD CHEMISTRY ORDERABLES Performing Organization Address City/[facility]/ZIP Code Phon e Number [address] POCT Glucose (08/13/2017 4:29 AM EST) athologist Signature POC Glucose 111 65 - 199 [facility] mg/dL [facility] LABORATORY Comment: Supplemental ranges: <140 mg/dL before meals <180 mg/dL all other times of the day Specimen Anatomical Collection Method Collection Time Receive d Time (Source) Location / / Volume Laterality Blood specimen 08/13/2017 4:29 AM 018 4:29 (specimen) EST AM EST Yonathan Smith MD POINT OF CARE TEST ORDERABLE S Performing Organization Address City/State/ZIP Code Phon e Number [address] POCT Glucose (08/12/2017 11:28 PM EST) athologist Signature POC Glucose 164 65 - 199 [facility] mg/dL [facility] LABORATORY Comment: Supplemental ranges: <140 mg/dL before meals <180 mg/dL all other times of the day Specimen Anatomical Collection Method Collection Time Receive d Time (Source) Location / / Volume Laterality Blood specimen 08/12/2017 11:28 8 (specimen) PM EST 11:28 PM EST Yonathan Smith MD POINT OF CARE TEST ORDERABLE S Performing Organization Address City/State/ZIP Code Phon e Number [address] (ABNORMAL) POCT Glucose (08/12/2017 7:40 PM EST) athologist Signature POC Glucose 209 (H) 65 - 199 [place] mg/dL [facility] LABORATORY Comment: Supplemental ranges: <140 [...] [facility] [place] [address] POCT Glucose (08/12/2017 4:24 PM EST) athologist Signature POC Glucose 161 65 - 199 [place] RYAN mg/dL [facility] LABORATORY Comment: Supplemental ranges: <140 [...] [facility] [place] [address] POCT Glucose (08/12/2017 12:00 PM EST) athologist Signature POC Glucose 167 65 - 199 [place] RYAN mg/dL [facility] LABORATORY Comment: Supplemental ranges: <140 mg/dL before meals <180 mg/dL all other times of the day Specimen Anatomical Collection Method Collection Time Receive d Time (Source) Location / / Volume Laterality Blood specimen 08/12/2017 12:00 8 (specimen) PM EST 12:00 PM EST Yonathan Smith MD POINT OF CARE TEST ORDERABLE S Performing Organization Address City/State/ZIP Code Phon e Number [address] POCT Glucose (08/12/2017 7:25 AM EST) P athologist Signature POC Glucose 152 65 - 199 [facility] mg/dL [facility] LABORATORY Comment: Supplemental ranges: <140 [...] [facility] [place]/ZIP Code Phon e Number [address] (ABNORMAL) Differential, Automated (08/12/2017 6:29 AM EST) Patholo gist Method Time Signature Neutrophils % 78.7 % [facility] LABORATORY Neutr Abs (ANC) 7.94 (H) 1.70 - [facility] 6.10 [facility] x10(3)/[facility] LABORATORY Lymphocytes % 8.8 % [facility] LABORATORY Lymphocytes Abs 0.9 0.9 - 3.2 [facility] x10(3)/[facility] LABORATORY Monocytes % 7.8 % [facility] LABORATORY Monocyte Abs 0.8 0.3 - 0.9 [facility] x10(3)/[facility] LABORATORY Eosinophils % 3.9 % [facility] LABORATORY Eosinophils Abs 0.4 0.0 - 0.4 [facility] x10(3)/[facility] LABORATORY Basophils % 0.3 % [facility] LABORATORY Basophils Abs 0.0 0.0 - 0.1 [facility] x10(3)/[facility] LABORATORY Immature Gran % 0.50 % [facility] [...] Address City/State/[place] [address] (ABNORMAL) Hemogram (08/12/2017 6:29 AM EST) Analysis Performed At Patho logist Time Signature WBC 10.1 (H) 4.0 - 9.5 [facility] x10(3)/[facility] LABORATORY RBC 3.02 (L) 4.58 - [facility] 5.54 [facility] x10(6)/[facility] LABORATORY Hemoglobin 8.7 (L) 13.7 - [facility] 16.5 gm/dL [facility] LABORATORY Hematocrit 28.1 (L) 40.5 - [facility] 48.5 % [facility] LABORATORY MCV 93.0 82.9 - [facility] 93.1 [facility] LABORATORY MCH 28.8 27.5 - [facility] 32.1 pg [facility] LABORATORY MCHC 31.0 (L) 32.0 - [facility] 35.7 gm/dL [facility] LABORATORY Platelets 223 145 - 357 [facility] x10(3)/[facility] LABORATORY RDWSD 56.1 (H) 36.0 - [facility]0 [facility] LABORATORY RDWCV 16.4 (H) 11.4 - [facility] 13.8 % [facility] LABORATORY MPV 9.0 7.6 - 12.9 [facility] LABORATORY nRBC % Auto 0.0 % [facility] LABORATORY nRBC Abs Auto 0.000 0.000 - [facility] RYAN 0.000 [facility] x10(3)/[facility] LABORATORY Specimen Anatomical Collection Method Collection Time Receive d Time (Source) Location / / Volume Laterality Blood specimen 08/12/2017 6:29 AM 018 6:38 (specimen) EST AM EST Resulting Agency Comment Spec In Lab Yonathan Smith MD HEMATOLOGY ORDERABLES Performing Organization Address City/[facility]/[place] [address] (ABNORMAL) Prothrombin Time (08/12/2017 [...] Organization Address City/[facility]/ZIP [facility] [address] (ABNORMAL) Basic Metabolic Panel (non-fasting) (08/12/2017 6:29 AM EST) athologist Signature Glucose Lvl 151 65 - 199 [facility] mg/dL [facility] LABORATORY Comment: Diabetes: >=200 mg/dL plus symp toms BUN 18 10 - 20 mg/dL [facility] LABORATORY Creatinine 1.11 0.80 - 1.50 mg/dL [place] [...] or in patients with acute kidney failure. [email or web address]/DHnkdep [email or web address]/DHMCnkf Specimen Anatomical Collection Method Collection Time Receive d Time (Source) Location / / Volume Laterality Blood specimen 08/12/2017 6:29 AM 018 6:38 (specimen) EST AM EST Resulting Agency Comment Spec In Lab Yonathan Smith MD CHEMISTRY ORDERABLES Performing Organization Address City/[facility]/ZIP Code Phon e Number [address] POCT Glucose (08/12/2017 4:08 AM EST) P athologist Signature POC Glucose 181 65 - 199 [facility] mg/dL [facility] LABORATORY Comment: Supplemental ranges: <140 [...] [facility] [place] [address] (ABNORMAL) POCT Glucose (08/12/2017 12:17 AM EST) athologist Signature POC Glucose 221 (H) 65 - 199 [facility] LABORATORY Comment: Supplemental ranges: <140 mg/dL before meals <180 mg/dL all other times of the day Specimen Anatomical Collection Method Collection Time Receive d Time (Source) Location / / Volume Laterality Blood specimen 08/12/2017 12:17 8 (specimen) AM EST 12:17 AM EST Yonathan Smith MD POINT OF CARE TEST ORDERABLE S Performing Organization Address City/State/[place] [address] (ABNORMAL) POCT Glucose (08/11/2017 8:52 PM EST) athologist Signature POC Glucose 221 (H) 65 - 199 [facility]dL [facility] LABORATORY Comment: Supplemental ranges: <140 mg/dL before meals <180 mg/dL all other times of the day Specimen Anatomical Collection Method Collection Time Receive d Time (Source) Location / / Volume Laterality Blood specimen 08/11/2017 8:52 PM 018 8:52 (specimen) EST PM EST Yonathan Smith MD POINT OF CARE TEST ORDERABLE S Performing Organization Address City/State/[place] [address] POCT Glucose (08/11/2017 5:59 PM EST) athologist Signature POC Glucose 169 65 - 199 [facility]dL [facility] LABORATORY Comment: Supplemental ranges: <140 mg/dL before meals <180 mg/dL all other times of the day Specimen Anatomical Collection Method Collection Time Receive d Time (Source) Location / / Volume Laterality Blood specimen 08/11/2017 5:59 PM 018 5:59 (specimen) EST PM EST Yonathan Smith MD POINT OF CARE TEST ORDERABLE S Performing Organization Address City/State/[place] [address] (ABNORMAL) POCT Glucose (08/11/2017 4:08 PM EST) athologist Signature POC Glucose 240 (H) 65 - 199 [place]HA[place] mg/dL [facility] LABORATORY Comment: Supplemental ranges: <140 mg/dL before meals <180 mg/dL all other times of the day Specimen Anatomical Collection Method Collection Time Receive d Time (Source) Location / / Volume Laterality Blood specimen 08/11/2017 4:08 PM 018 4:08 (specimen) EST PM EST Yonathan Smith MD POINT OF CARE TEST ORDERABLE S Performing Organization Address City/State/[place] [address] POCT Glucose (08/11/2017 12:04 PM EST) athologist Signature POC Glucose 182 65 - 199 [facility] RYAN mg/dL [facility] LABORATORY Comment: Supplemental ranges: <140 mg/dL before meals <180 mg/dL all other times of the day Specimen Anatomical Collection Method Collection Time Receive d Time (Source) Location / / Volume Laterality Blood specimen 08/11/2017 12:04 8 (specimen) PM EST 12:04 PM EST Yonathan Smith MD POINT OF CARE TEST ORDERABLE S Performing Organization Address City/State/[place] [address] POCT Glucose (08/11/2017 7:31 AM EST) athologist Signature POC Glucose 156 65 - 199 [place] RYAN mg/dL [facility] LABORATORY Comment: Supplemental ranges: <140 mg/dL before meals <180 mg/dL all other times of the day Specimen Anatomical Collection Method Collection Time Receive d Time (Source) Location / / Volume Laterality Blood specimen 08/11/2017 7:31 AM 018 7:31 (specimen) EST AM EST Yonathan Smith MD POINT OF CARE TEST ORDERABLE S Performing Organization Address City/State/[place] [address] (ABNORMAL) Differential, Automated (08/11/2017 6:16 AM EST) Patholo gist Method Time Signature Neutrophils % 83.7 % [facility] LABORATORY Neutr Abs (ANC) 10.76 (H) 1.70 - [facility] 6.10 [facility] x10(3)/[facility] LABORATORY Lymphocytes % 6.0 % [facility] LABORATORY Lymphocytes Abs 0.8 (L) 0.9 - 3.2 [facility] x10(3)/[facility] LABORATORY Monocytes % 7.5 % [facility] LABORATORY Monocyte Abs 1.0 (H) 0.3 - 0.9 [facility] x10(3)/[facility] LABORATORY Eosinophils % 2.0 % [facility] LABORATORY Eosinophils Abs 0.3 0.0 - 0.4 [facility] x10(3)/[facility] LABORATORY Basophils % 0.3 % [facility] LABORATORY Basophils Abs 0.0 0.0 - 0.1 [place] 420450(3)/[facility] LABORATORY Immature Gran % 0.50 % [facility] [...] Address City/State/Z[place] [address] (ABNORMAL) Hemogram (08/11/2017 6:16 AM EST) Analysis [facility] Signature WBC 12.9 (H) 4.0 - 9.5 [facility] x10(3)/[facility] LABORATORY RBC 3.28 (L) 4.58 - [facility] 5.54 [facility] x10(6)/[facility] LABORATORY Hemoglobin 9.5 (L) 13.7 - [facility] 16.5 gm/dL [facility] LABORATORY Hematocrit 29.8 (L) 40.5 - [facility] 48.5 % [facility] LABORATORY MCV 90.9 82.9 - [facility] 93.1 [facility] LABORATORY MCH 29.0 27.5 - [facility] 32.1 pg [facility] LABORATORY MCHC 31.9 (L) 32.0 - [facility] 35.7 gm/dL [facility] LABORATORY Platelets 236 145 - 357 [facility] x10(3)/[facility] LABORATORY RDWSD 53.5 (H) 36.0 - [facility] 45.0 [facility] LABORATORY RDWCV 16.3 (H) 11.4 - [facility] 13.8 % [facility] LABORATORY MPV 8.8 7.6 - 12.9 [facility] LABORATORY nRBC % Auto 0.0 % [facility] LABORATORY nRBC Abs Auto 0.000 0.000 - [facility] 0.000 [facility] x10(3)/[facility] LABORATORY Specimen Anatomical Collection Method Collection Time Receive d Time (Source) Location / / Volume Laterality Blood specimen 08/11/2017 6:16 AM 018 6:24 (specimen) EST AM EST Resulting Agency Comment Spec In Lab Yonathan Smith MD HEMATOLOGY ORDERABLES Performing Organization Address City/State/[place] [address] (ABNORMAL) Prothrombin Time (08/11/2017 [...] Address City/State/[place] [address] Basic Metabolic Panel (non-fasting) (08/11/2017 6:16 AM EST) athologist Signature Glucose Lvl 139 65 - 199 [facility] mg/dL [facility] LABORATORY Comment: Diabetes: >=200 mg/dL plus symp toms BUN 12 10 - 20 mg/dL [facility] LABORATORY Creatinine 0.91 0.80 - 1.50 mg/dL [place] [...] or in patients with acute kidney failure. http://[employer]/nkdep [email or web address] OK[facility] CITYnkf Specimen Anatomical Collection Method Collection Time Receive d Time (Source) Location / / Volume Laterality Blood specimen 08/11/2017 6:16 AM 018 6:24 (specimen) EST AM EST Resulting Agency Comment Spec In Lab Yonathan Smith MD CHEMISTRY ORDERABLES Performing Organization Address City/[facility]/ZIP Code Phon e Number [address] POCT Glucose (08/11/2017 4:07 AM EST) athologist Signature POC Glucose 162 65 - 199 [place] RYAN mg/dL [facility] LABORATORY Comment: Supplemental ranges: <140 [...] [facility] [place]/ZIP Code Phon e Number [address] POCT Glucose (08/10/2017 11:59 PM EST) athologist Signature POC Glucose 166 65 - 199 [place] RYAN mg/dL [facility] LABORATORY Comment: Supplemental ranges: <140 [...] [facility] [place]/ZIP Code Phon e Number [address] POCT Glucose (08/10/2017 8:12 PM EST) athologist Signature POC Glucose 156 65 - 199 [place] RYAN mg/dL [facility] LABORATORY Comment: Supplemental ranges: <140 [...] [facility] [place] [address] (ABNORMAL) POCT Glucose (08/10/2017 4:42 PM EST) P athologist Signature POC Glucose 211 (H) 65 - 199 [facility]/dL [facility] LABORATORY Comment: Supplemental ranges: <140 [...] [facility] [place] [address] (ABNORMAL) Differential, Automated (08/10/2017 2:30 PM EST) Patholo gist Method Time Signature Neutrophils % 87.6 % [facility] LABORATORY Neutr Abs (ANC) 9.90 (H) 1.70 - [facility] 6.10 [facility] x10(3)/[facility] L LABORATORY Lymphocytes % 4.3 % [facility] LABORATORY Lymphocytes Abs 0.5 (L) 0.9 - 3.2 [facility] x10(3)/[facility] LABORATORY Monocytes % 6.0 % [facility] LABORATORY Monocyte Abs 0.7 0.3 - 0.9 [facility] x10(3)/[facility] LABORATORY Eosinophils % 1.1 % [facility] LABORATORY Eosinophils Abs 0.1 0.0 - 0.4 [facility] x10(3)/[facility] LABORATORY Basophils % 0.4 % [facility] LABORATORY Basophils Abs 0.0 0.0 - 0.1 [facility] x10(3)/[facility] LABORATORY Immature Gran % [...] Address City/State/[place] [address] (ABNORMAL) Hemogram (08/10/2017 2:30 PM EST) Analysis Performed At Patho logist Time Signature WBC 11.3 (H) 4.0 - 9.5 [facility] x10(3)/[facility] LABORATORY RBC 3.13 (L) 4.58 - [facility] 5.54 [facility] x10(6)/[facility] LABORATORY Hemoglobin 8.9 (L) 13.7 - [facility] 16.5 gm/dL [facility] LABORATORY Hematocrit 28.4 (L) 40.5 - [facility] 48.5 % [facility] LABORATORY MCV 90.7 82.9 - [facility] 93.1 [facility] LABORATORY MCH 28.4 27.5 - [facility] 32.1 pg [facility] LABORATORY MCHC 31.3 (L) 32.0 - [facility] 35.7 gm/dL [facility] LABORATORY Platelets 213 145 - 357 [facility] x10(3)/[facility] RDWSD 53.7 (H) 36.0 - [facility] 45.0 [facility] RDWCV 16.4 (H) 11.4 - [facility] 13.8 % [facility] LABORATORY MPV 8.9 7.6 - 12.9 [facility] LABORATORY nRBC % Auto 0.0 % [facility] LABORATORY nRBC Abs Auto 0.000 0.000 - [facility] 0.000 [facility] x10(3)/[facility] LABORATORY Specimen Anatomical Collection Method Collection Time Receive d Time (Source) Location / / Volume Laterality Blood specimen 08/10/2017 2:30 PM 018 2:48 (specimen) EST PM EST Resulting Agency Comment Spec In Lab Yonathan Smith MD HEMATOLOGY ORDERABLES Performing Organization Address City/State/[place] [address] (ABNORMAL) POCT Glucose (08/10/2017 1:50 PM EST) athologist Signature POC Glucose 243 (H) 65 - 199 [facility] mg/dL [facility] LABORATORY Comment: Supplemental ranges: <140 mg/dL before meals <180 mg/dL all other times of the day Specimen Anatomical Collection Method Collection Time Receive d Time (Source) Location / / Volume Laterality Blood specimen 08/10/2017 1:50 PM 018 1:50 (specimen) EST PM EST Yonathan Smith MD POINT OF CARE TEST ORDERABLE S Performing Organization Address City/State/[place] [address] POCT Glucose (08/10/2017 11:21 AM EST) athologist Signature POC Glucose 156 65 - 199 [facility] mg/dL [facility] LABORATORY Comment: Supplemental ranges: <140 mg/dL before meals <180 mg/dL all other times of the day Specimen Anatomical Collection Method Collection Time Receive d Time (Source) Location / / Volume Laterality Blood specimen 08/10/2017 11:21 8 (specimen) AM EST 11:21 AM EST Yonathan Smith MD POINT OF CARE TEST ORDERABLE S Performing Organization Address City/State/[place] [address] (ABNORMAL) Differential, Automated (08/10/2017 10:28 AM EST) Patholo gist Method Time Signature Neutrophils % 85.3 % [facility] LABORATORY Neutr Abs (ANC) 9.43 (H) 1.70 - [facility] 6.10 [facility] x10(3)/[facility] L LABORATORY Lymphocytes % 5.5 % [facility] LABORATORY Lymphocytes Abs 0.6 (L) 0.9 - 3.2 [facility] x10(3)/[facility] LABORATORY Monocytes % 5.9 % [facility] LABORATORY Monocyte Abs 0.6 0.3 - 0.9 [facility] x10(3)/[facility] LABORATORY Eosinophils % 2.1 % [facility] LABORATORY Eosinophils Abs 0.2 0.0 - 0.4 [facility] x10(3)/[facility] LABORATORY Basophils % 0.4 % [facility] LABORATORY Basophils Abs 0.0 0.0 - 0.1 [facility] x10(3)/[facility] LABORATORY Immature Gran % 0.80 % [facility] [...] Address City/State/Z[place] [address] (ABNORMAL) Hemogram (08/10/2017 10:28 AM EST) [facility] Time Signature WBC 11.0 (H) 4.0 - 9.5 [facility] x10(3)/[facility] LABORATORY RBC 3.02 (L) 4.58 - [facility] 5.54 [facility] x10(6)/[facility] LABORATORY Hemoglobin 8.8 (L) 13.7 - [facility] 16.5 gm/dL [facility] LABORATORY Hematocrit 28.1 (L) 40.5 - [facility] 48.5 % [facility] LABORATORY MCV 93.0 82.9 - [facility] 93.1 [facility] LABORATORY MCH 29.1 27.5 - [place] [facility] 32.1 pg [facility] LABORATORY MCHC 31.3 (L) 32.0 - [place] [facility] 35.7 gm/dL [facility] LABORATORY Platelets 207 145 - 357 [facility] x10(3)/[facility] LABORATORY RDWSD 55.3 (H) 36.0 - [facility] 45.0 [facility] LABORATORY RDWCV 16.4 (H) 11.4 - [facility] 13.8 % [facility] LABORATORY MPV 9.0 7.6 - 12.9 [facility] LABORATORY nRBC % Auto 0.0 % [facility] LABORATORY nRBC Abs Auto 0.000 0.000 - [facility] 0.000 [facility] x10(3)/[facility] LABORATORY Specimen Anatomical Collection Method Collection Time Receive d Time (Source) Location / / Volume Laterality Blood specimen 08/10/2017 10:28 8 (specimen) AM EST 10:35 AM EST Resulting Agency Comment Spec In Lab Yonathan Smith MD HEMATOLOGY ORDERABLES Performing Organization Address City/State/Z[place] [address] VS Angiogram/intervention (vascular) (08/10/2017 [...] 2.5x80 5. Completion RLE angiogram 6. L [employer]OYEE [employer]ACEMENT [employer]IST angiogram 7. 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 - L EM[employer]OYEE PLACEMENT SPECIALIST angriogram demonstrated: High fe moral bifurcation over the proximal half of the femoral head. L EMPLOYEE PLACEMENT SPECIALIST access in the distal L EMPLOYEE PLACEMENT SPECIALIST. - Closure device: Mynx Technical Procedure: ?The [...] for a 45cm 5F Destination. V18 and Prole a nd QuickCross catheters were used to [...] bifurcation. Access appeared in the distal R EMPLOYEE PLACEMENT SPECIALIST. Closure and sheath removal was performed with [...] 2.5x80 5. Completion RLE angiogram 6. L EMPLOYEE PLACEMENT SPECIALIST angiogram 7. 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 - L EMPLOYEE PLACEMENT SPECIALIST angriogram demonstrated: High fe moral bifurcation over the proximal half of the femoral head. L EMPLOYEE PLACEMENT SPECIALIST access in the distal L EMPLOYEE PLACEMENT SPECIALIST. - Closure device: Mynx Technical Procedure: The [...] for a 45cm 5F Destination. V18 and Prole a nd QuickCross catheters were used to [...] bifurcation. Access appeared in the distal R EMPLOYEE PLACEMENT SPECIALIST. Closure and sheath removal was performed with [...] (ABNORMAL) Differential, Automated (08/10/2017 5:50 AM EST) [facility] Method Time Signature Neutrophils % 80.1 % [facility] LABORATORY Neutr Abs (ANC) 9.01 (H) 1.70 - [facility] 6.10 [facility] x10(3)/[facility] L LABORATORY Lymphocytes % 8.8 % [facility] Lymphocytes Abs 1.0 0.9 - 3.2 [facility] x10(3)/[facility] LABORATORY Monocytes % 8.3 % [facility] Monocyte Abs 0.9 0.3 - 0.9 [facility] x10(3)/[facility] LABORATORY Eosinophils % 2.0 % [facility] Eosinophils Abs 0.2 0.0 - 0.4 [facility] x10(3)/[facility] LABORATORY Basophils % 0.4 % [facility] Basophils Abs 0.0 0.0 - 0.1 [facility] x10(3)/[facility] LABORATORY Immature Gran % 0.40 % [facility] [...] Address City/State/[place] [address] (ABNORMAL) Hemogram (08/10/2017 5:50 AM EST) Analysis Performed At Patho logist Time Signature WBC 11.3 (H) 4.0 - 9.5 [facility] x10(3)/[facility] LABORATORY RBC 3.15 (L) 4.58 - [facility] 5.54 [facility] x10(6)/[facility] LABORATORY Hemoglobin 8.9 (L) 13.7 - [facility] 16.5 gm/dL [facility] Hematocrit 29.0 (L) 40.5 - [facility] 48.5 % [facility] MCV 92.1 82.9 - [facility] 93.1 fL [facility] MCH 28.3 27.5 - [facility] 32.1 pg [facility]ORY MCHC 30.7 (L) 32.0 - [facility] 35.7 gm/dL [facility] Platelets 231 145 - 357 [facility] x10(3)/[facility] LABORATORY RDWSD 53.9 (H) 36.0 - [facility] 45.0 [facility] LABORATORY RDWCV 16.2 (H) 11.4 - [facility] 13.8 % [facility] LABORATORY MPV 8.7 7.6 - 12.9 [facility] LABORATORY nRBC % Auto 0.0 % [facility] nRBC Abs Auto 0.000 0.000 - [facility] 0.000 [facility] x10(3)/[facility] LABORATORY Specimen Anatomical Collection Method Collection Time Receive d Time (Source) Location / / Volume Laterality Blood specimen 08/10/2017 5:50 AM 018 5:59 (specimen) EST AM EST Resulting Agency Comment Spec In Lab Yonathan Smith MD HEMATOLOGY ORDERABLES Performing Organization Address City/State/[place] [address] (ABNORMAL) Basic Metabolic Panel (non-fasting) (08/10/2017 5:50 AM EST) athologist Signature Glucose Lvl 135 65 - 199 [facility] mg/dL [facility]ORY Comment: Diabetes: >=200 mg/dL plus symp toms BUN 17 10 - 20 mg/dL [facility] LABORATORY Creatinine 1.05 0.80 - 1.50 mg/dL [place] [...] LABORATORY Estimated GFR >60 >=60 [facility] LABORATORY Comment: The reported eGFR should be multiplied b y 1.2 for patients. The MDRD is not an appropriate measure o f renal function for patients with body mass extremes or in patients with acute kidney failure. [email or web address]/DHnkdep [email or web address]/DHMCnkf Specimen Anatomical Collection Method Collection Time Receive d Time (Source) Location / / Volume Laterality Blood specimen 08/10/2017 5:50 AM 018 5:59 (specimen) EST AM EST Resulting Agency Comment Spec In Lab Yonathan Smith MD CHEMISTRY ORDERABLES Performing Organization Address City/[facility] [place] [address] (ABNORMAL) Prothrombin Time (08/10/2017 [...] Performing Organization Address City/[facility] [place] [address] (ABNORMAL) POCT Glucose (08/10/2017 4:01 AM EST) P athologist Signature POC Glucose 206 (H) 65 - 199 [facility] mg/dL [facility] Comment: Supplemental ranges: <140 mg/dL before meals <180 mg/dL all other times of the day Specimen Anatomical Collection Method Collection Time Receive d Time (Source) Location / / Volume Laterality Blood specimen 08/10/2017 4:01 AM 018 4:01 (specimen) EST AM EST Yonathan Smith MD POINT OF CARE TEST ORDERABLE S Performing Organization Address City/State/[place] [address] POCT Glucose (08/10/2017 2:01 AM EST) athologist Signature POC Glucose 188 65 - 199 [facility] mg/dL [facility] Comment: Supplemental ranges: <140 mg/dL before meals <180 mg/dL all other times of the day Specimen Anatomical Collection Method Collection Time Receive d Time (Source) Location / / Volume Laterality Blood specimen 08/10/2017 2:01 AM 018 2:01 (specimen) EST AM EST Yonathan Smith MD POINT OF CARE TEST ORDERABLE S Performing Organization Address City/State/[place] [address] (ABNORMAL) POCT Glucose (08/09/2017 11:42 PM EST) athologist Signature POC Glucose 283 (H) 65 - 199 [facility] mg/dL [facility] Comment: Supplemental ranges: <140 mg/dL before meals <180 mg/dL all other times of the day Specimen Anatomical Collection Method Collection Time Receive d Time (Source) Location / / Volume Laterality Blood specimen 08/09/2017 11:42 8 (specimen) PM EST 11:42 PM EST Yonathan Smith MD POINT OF CARE TEST ORDERABLE S Performing Organization Address City/State/ZIP Code Phon e Number [address] POCT Glucose (08/09/2017 8:55 PM EST) athologist Signature POC Glucose 182 65 - 199 [facility] mg/dL [facility]ORY Comment: Supplemental ranges: <140 [...] [facility] [place] [address] (ABNORMAL) APTT (08/09/2017 6:42 PM EST) athologist Signature PTT 90 (H) 25 - 35 sec [facility] Comment: The recommended therapeutic range for fu ll dose, unfractionated heparin at [facility] is 80 ? [...] [facility] [place] [address] POCT Glucose (08/09/2017 4:41 PM EST) athologist Signature POC Glucose 195 65 - [address] [facility] [address] mg/dL [facility] LABORATORY Comment: Supplemental ranges: <140 [...] [facility] [place]/ZIP Code Phon e Number [address] POCT Glucose (08/09/2017 12:29 PM EST) athologist Signature POC Glucose 140 65 - 199 [facility] mg/dL [facility] LABORATORY Comment: Supplemental ranges: <140 [...] [facility] [place]/ZIP Code Phon e Number [address] POCT Glucose (08/09/2017 9:59 AM EST) P athologist Signature POC Glucose 135 65 - 199 [facility] mg/dL [facility] LABOR[facility]ORY Comment: Supplemental ranges: <140 [...] [facility] [place] [address] Specimen to Pathology (08/09/2017 [...] [facility] [place] [address] Surgical Pathology Report (08/09/2017 8:40 AM EST) Component Value Ref Test Analysis Performed At Patholo gist Range Method Time Signature Surgical [id number] ? Location: [facility]; [facility]; A [facility] Pathology PANGUITCH Report The signing pathologist has (i) examined [...] Henrique Flower Verified: ??08/13/2017 ?Pathologist Performed at: ??-[facility] Dept. of Pathology, [place], [place] CLINICAL INFORMATION Specimen Submitted: A - [...] [facility] [place] [address] Anaerobic Culture (08/09/2017 8:30 AM EST) [facility] Method Time Signature Anaerobic No anaerobic [facility] Culture organisms [facility] [...] [facility] [place] [address] (ABNORMAL) Abscess/Wound Aspirate Culture (08/09/2017 8:30 AM EST) [facility] Method Time Signature Abscess/Wound Moderate mixed [facility] Aspirate bacterial PANGUITCH Culture morphotypes [facility] normal LABORATORY cutaneous leroy (A) Gram Stain Rare White Blood Cells [facility]BAR[facility] Few Gram Positive Cocci in pairs PANGUITCH () [facility] LABORATORY Organism Gram Positive BARBARA Cocci in pairs PANGUITCH () [facility] LABORATORY Specimen Anatomical [...] [facility] [place]/ZIP Code Phon e Number [address] POCT Glucose (08/09/2017 4:28 AM EST) P athologist Signature POC Glucose 128 65 - 199 [facility] mg/dL [facility] LABORATORY Comment: Supplemental ranges: <140 mg/dL before meals <180 mg/dL all other times of the day Specimen Anatomical Collection Method Collection Time Receive d Time (Source) Location / / Volume Laterality Blood specimen 08/09/2017 4:28 AM 018 4:28 (specimen) EST AM EST Yonathan Smith MD POINT OF CARE TEST ORDERABLE S Performing Organization Address City/State/ZIP Code Phon e Number [address] ABORH Recheck Status (08/09/2017 1:10 AM EST) [facility] Method Time Signature ABORH Type Completed [facility] LABORATORY Specimen Anatomical Collection Method Collection Time Receive d Time (Source) Location / / Volume Laterality Blood specimen 08/09/2017 1:10 AM 018 1:35 (specimen) EST AM EST Resulting Agency Comment Spec In Lab Yonathan Smith MD BLOOD BANK ORDERABLES Performing Organization Address City/[facility]/[place] [address] Antibody screen (08/09/2017 1:10 AM EST) [facility] Method Time Signature Ab Screen Negative [facility] LABORATORY Expires at 08/12/2017 [facility] [id number] on: [facility] LABORATORY Specimen Anatomical Collection Method Collection Time Receive d Time (Source) Location / / Volume Laterality Blood specimen 08/09/2017 1:10 AM 018 1:35 (specimen) EST AM EST Resulting Agency Comment Spec In Lab Yonathan Smith MD BLOOD BANK ORDERABLES Performing Organization Address City/State/[place] [address] ABO/Rh Typing (08/09/2017 1:10 [...] Address City/State/[place] [address] (ABNORMAL) APTT (08/09/2017 1:10 AM EST) P athologist Signature PTT 86 (H) 25 - 35 sec [facility] Comment: The recommended therapeutic range for fu ll dose, unfractionated heparin at [facility] is 80 ? [...] Address City/State/Z[place] [address] (ABNORMAL) Differential, Automated (08/09/2017 1:10 AM EST) Patholo gist Method Time Signature Neutrophils % 76.2 % [facility] LABOR[facility]ORY Neutr Abs (ANC) 8.59 (H) 1.70 - [facility] 6.10 [facility] x10(3)/[facility] LABORATORY Lymphocytes % 11.0 % [facility]ORY Lymphocytes Abs 1.2 0.9 - 3.2 [facility] x10(3)/[facility] LABORATORY Monocytes % 8.4 % [facility]OR[facility]ORY Monocyte Abs 1.0 (H) 0.3 - 0.9 [facility] x10(3)/[facility] LABORATORY Eosinophils % 3.5 % [facility] Eosinophils Abs 0.4 0.0 - 0.4 [facility] x10(3)/[facility] LABORATORY Basophils % 0.5 % [facility]ORY Basophils Abs 0.1 0.0 - 0.1 [facility] x10(3)/[facility] LABORATORY Immature Gran % 0.40 % [facility] [...] Address City/State/Z[place] [address] (ABNORMAL) Hemogram (08/09/2017 1:10 AM EST) Analysis Performed At Patho logist Time Signature WBC 11.3 (H) 4.0 - 9.5 [facility] x[facility](3[facility] LABORATORY RBC 3.47 (L) 4.58 - [facility] RYAN 5.54 [facility] x10(6)/[facility] LABORATORY Hemoglobin 10.0 (L) 13.7 - [facility] 16.5 gm/dL [facility] LABORATORY Hematocrit 31.9 (L) 40.5 - [facility] RYAN 48.5 % [facility] LABORATORY MCV 91.9 82.9 - [facility] 93.1 [facility] LABORATORY MCH 28.8 27.5 - [facility] RYAN 32.1 pg [facility] LABORATORY MCHC 31.3 (L) 32.0 - [facility] RYAN 35.7 gm/dL [facility] LABORATORY Platelets 234 145 - 357 [facility] x10(3)/[facility] LABORATORY RDWSD 54.0 (H) 36.0 - [facility] RYAN 45.0 [facility] LABORATORY RDWCV 16.2 (H) 11.4 - [facility] RYAN 13.8 % [facility] LABORATORY MPV 8.7 7.6 - 12.9 [facility] LABORATORY nRBC % Auto 0.0 % [facility] LABORATORY nRBC Abs Auto 0.000 0.000 - [facility] 0.000 [facility] x10(3)/[facility] LABORATORY Specimen Anatomical Collection Method Collection Time Receive d Time (Source) Location / / Volume Laterality Blood specimen 08/09/2017 1:10 AM 018 1:19 (specimen) EST AM EST Resulting Agency Comment Spec In Lab Yonathan Smith MD HEMATOLOGY ORDERABLES Performing Organization Address City/State/[place] [address] (ABNORMAL) Prothrombin Time (08/09/2017 [...] Address City/State/[place] [address] (ABNORMAL) Basic Metabolic Panel (non-fasting) (08/09/2017 1:10 AM EST) athologist Signature Glucose Lvl 108 65 - 199 [facility] mg/dL [facility] LABORATORY Comment: Diabetes: >=200 mg/dL plus symp toms BUN 34 (H) 10 - 20 mg/dL [facility] LABORATORY Creatinine 1.54 (H) 0.80 - 1.50 mg/dL [place] [...] or in patients with acute kidney failure. [email or web address] [email or web address] Specimen Anatomical Collection Method Collection Time Receive d Time (Source) Location / / Volume Laterality Blood specimen 08/09/2017 1:10 AM 018 1:19 (specimen) EST AM EST Resulting Agency Comment Spec In Lab Yonathan Smith MD CHEMISTRY ORDERABLES Performing Organization Address City/State/[place] [address] POCT Glucose (08/09/2017 12:05 AM EST) P athologist Signature POC Glucose 128 65 - 199 [facility] mg/dL [facility] LABORATORY Comment: Supplemental ranges: <140 mg/dL before meals <180 mg/dL all other times of the day Specimen Anatomical Collection Method Collection Time Receive d Time (Source) Location / / Volume Laterality Blood specimen 08/09/2017 12:05 8 (specimen) AM EST 12:05 AM EST Yonathan Smith MD POINT OF CARE TEST ORDERABLE S Performing Organization Address City/State/[place] [address] (ABNORMAL) POCT Glucose (08/08/2017 7:36 PM EST) athologist Signature POC Glucose 215 (H) 65 - 199 [facility] mg/dL [facility] LAB[facility]ORY Comment: Supplemental ranges: <140 mg/dL before meals <180 mg/dL all other times of the day Specimen Anatomical Collection Method Collection Time Receive d Time (Source) Location / / Volume Laterality Blood specimen 08/08/2017 7:36 PM 018 7:36 (specimen) EST PM EST Yonathan Smith MD POINT OF CARE TEST ORDERABLE S Performing Organization Address City/State/[place] [address] (ABNORMAL) POCT Glucose (08/08/2017 6:23 PM EST) athologist Signature POC Glucose 216 (H) 65 - 199 [facility] mg/dL [facility] LABORATORY Comment: Supplemental ranges: <140 mg/dL before meals <180 mg/dL all other times of the day Specimen Anatomical Collection Method Collection Time Receive d Time (Source) Location / / Volume Laterality Blood specimen 08/08/2017 6:23 PM 018 6:23 (specimen) EST PM EST Yonathan Smith MD POINT OF CARE TEST ORDERABLE S Performing Organization Address City/State/[place] [address] (ABNORMAL) APTT (08/08/2017 6:00 PM EST) athologist Signature PTT 97 (H) 25 - 35 sec [facility] LAB[facility]ORY Comment: The recommended therapeutic range for fu ll dose, unfractionated heparin at [facility] is 80 ? [...] Address City/State/ZIP Code Phon e Number [address] POCT Glucose (08/08/2017 4:42 PM EST) athologist Signature POC Glucose 78 65 - 199 [facility] R[facility]AN mg/dL [facility] LABORATORY Comment: Supplemental ranges: <140 [...] [facility] [place] [address] (ABNORMAL) POCT Glucose (08/08/2017 4:01 PM EST) athologist Signature POC Glucose 58 (L) 65 - 199 [facility] mg/dL [facility] LABORATORY Comment: Supplemental ranges: <140 [...] [facility] [place] [address] POCT Glucose (08/08/2017 11:51 AM EST) athologist Signature POC Glucose 90 65 - 199 [facility] mg/dL [facility] LABORATORY Comment: Supplemental ranges: <140 [...] [facility] [place] [address] (ABNORMAL) APTT (08/08/2017 10:27 AM EST) athologist Signature PTT 64 (H) 25 - 35 sec [facility] LAB[facility]ORY Comment: The recommended therapeutic range for fu ll dose, unfractionated heparin at [facility] is 80 ? [...] [facility] [place] [address] POCT Glucose (08/08/2017 8:02 AM EST) athologist Signature POC Glucose 178 65 - 199 [facility] mg/dL [facility] LABORATORY Comment: Supplemental ranges: <140 [...] [facility] [place] [address] (ABNORMAL) APTT (08/08/2017 4:51 AM EST) athologist Signature PTT >160 25 - [address] [address] (Critical) sec [facility] LABORATORY Comment: Called by: HOWRAD, Read back by: Melba Jaramillo, Date/Time:08/08/17 05:43. The recommended therapeutic range for fu ll dose, unfractionated heparin at [facility] is 80 ? [...] Address City/State/Z[place] [address] (ABNORMAL) Differential, Automated (08/08/2017 4:51 AM EST) [facility] Method Time Signature Neutrophils % 77.9 % [facility] LABORATORY Neutr Abs (ANC) 8.17 (H) 1.70 - [facility] 6.10 [facility] x10(3)/[facility] LABORATORY Lymphocytes % 10.3 % [facility] LABORATORY Lymphocytes Abs 1.1 0.9 - 3.2 [facility] x10(3)/[facility] LABORATORY Monocytes % 7.0 % [facility] LABORATORY Monocyte Abs 0.7 0.3 - 0.9 [facility] x10(3)/[facility] LABORATORY Eosinophils % 3.6 % [facility] LABORATORY Eosinophils Abs 0.4 0.0 - 0.4 [facility] x10(3)/[facility] LABORATORY Basophils % 0.5 % [facility] LABORATORY Basophils Abs 0.0 0.0 - 0.1 [facility] x10(3)/[facility] LABORATORY Immature Gran % 0.70 % [facility] [...] Address City/State/Z[place] [address] (ABNORMAL) Hemogram (08/08/2017 4:51 AM EST) Analysis Performed At Patho logist Time Signature WBC 10.5 (H) 4.0 - 9.5 [facility] x10(3)/[facility] LABORATORY RBC 3.27 (L) 4.58 - [facility] 5.54 [facility] x10(6)/[facility] LABORATORY Hemoglobin 9.3 (L) 13.7 - [facility] 16.5 gm/dL [facility] LABORATORY Hematocrit 30.3 (L) 40.5 - [facility] 48.5 % [facility] LABORATORY MCV 92.7 82.9 - [facility] 93.1 [facility] LABORATORY MCH 28.4 27.5 - [facility] RYAN 32.1 pg [facility] LABORATORY MCHC 30.7 (L) 32.0 - [facility] 35.7 gm/dL [facility] LABORATORY Platelets 252 145 - 357 [facility] x10(3)/[facility] LABORATORY RDWSD 54.6 (H) 36.0 - [facility] RYAN 45.0 [facility] LABORATORY RDWCV 16.2 (H) 11.4 - [facility] R[facility]AN 13.8 % [facility] LABORATORY MPV 9.1 7.6 - 12.9 [facility] LABORATORY nRBC % Auto 0.0 % [facility] LABORATORY nRBC Abs Auto 0.000 0.000 - [place] R[facility]AN 0.000 [facility] x10(3)/[facility] LABORATORY Specimen Anatomical Collection Method Collection Time Receive d Time (Source) Location / / Volume Laterality Blood specimen 08/08/2017 4:51 AM 018 5:14 (specimen) EST AM EST Resulting Agency Comment Spec In Lab Yonathan Smith MD HEMATOLOGY ORDERABLES Performing Organization Address City/[facility]/[place] [address] (ABNORMAL) Prothrombin Time (08/08/2017 [...] Address City/State/[place] [address] (ABNORMAL) Basic Metabolic Panel (non-fasting) (08/08/2017 4:51 AM EST) athologist Signature Glucose Lvl 229 (H) 65 - 199 [facility] mg/dL [facility] LABORATORY Comment: Diabetes: >=200 mg/dL plus symp toms BUN 35 (H) 10 - 20 mg/dL [facility] LABORATORY Creatinine 1.57 (H) 0.80 - 1.50 mg/dL [place] [...] or in patients with acute kidney failure. [email or web address] [email or web address] Specimen Anatomical Collection Method Collection Time Receive d Time (Source) Location / / Volume Laterality Blood specimen 08/08/2017 4:51 AM 018 5:14 (specimen) EST AM EST Resulting Agency Comment Spec In Lab Yonathan Smith MD CHEMISTRY ORDERABLES Performing Organization Address City/State/ZIP Code Phon e Number [address] POCT Glucose (08/08/2017 4:20 AM EST) athologist Signature POC Glucose 193 65 - 199 [facility] Comment: Supplemental ranges: <140 [...] [facility] [place]/ZIP Code Phon e Number [address] POCT Glucose (08/07/2017 11:11 PM EST) athologist Signature POC Glucose 124 65 - 199 [facility]AN mg/dL [facility] Comment: Supplemental ranges: <140 [...] [facility] [place] [address] (ABNORMAL) APTT (08/07/2017 10:18 PM EST) P athologist Signature PTT 114 (H) 25 - 35 sec [facility] Comment: The recommended therapeutic range for fu ll dose, unfractionated heparin at [facility] is 80 ? [...] mSith MD HEMATOLOGY ORDERABLES Performing Organization Address City/[facility] [place]/[facility] Code Phon e Number [address] POCT Glucose (08/07/2017 8:10 PM EST) P athologist Signature POC Glucose 140 65 - 199 [facility] mg/dL [facility] Comment: Supplemental ranges: <140 [...] [facility] [place] [address] POCT Glucose (08/07/2017 5:27 PM EST) athologist Signature POC Glucose 187 65 - 199 [facility] mg/dL [facility] Comment: Supplemental ranges: <140 [...] [facility] [place]/ZIP Code Phon e Number [address] POCT Glucose (08/07/2017 3:29 PM EST) athologist Signature POC Glucose 86 65 - [address] mg/dL [facility] Comment: Supplemental ranges: <140 mg/dL before meals <180 mg/dL all other times of the day Specimen Anatomical Collection Method Collection Time Receive d Time (Source) Location / / Volume Laterality Blood specimen 08/07/2017 3:29 PM 018 3:29 (specimen) EST PM EST Yonathan Smith MD POINT OF CARE TEST ORDERABLE S Performing Organization Address City/[facility] [place]/ZIP [facility] [place] [address] (ABNORMAL) APTT (08/07/2017 2:50 PM EST) athologist Signature PTT 60 (H) 25 - 35 sec [facility] Comment: The recommended therapeutic range for fu ll dose, unfractionated heparin at [facility] is 80 ? [...] [facility] [place] [address] (ABNORMAL) POCT Glucose (08/07/2017 2:23 PM EST) athologist Signature POC Glucose 55 (L) 65 - 199 [facility] mg/dL [facility] Comment: Supplemental ranges: <140 mg/dL before meals <180 mg/dL all other times of the day Specimen Anatomical Collection Method Collection Time Receive d Time (Source) Location / / Volume Laterality Blood specimen 08/07/2017 2:23 PM 018 2:23 (specimen) EST PM EST Yonathan Smith MD POINT OF CARE TEST ORDERABLE S Performing Organization Address City/State/ZIP Code Phon e Number [address] POCT Glucose (08/07/2017 12:08 PM EST) athologist [facility] POC Glucose 77 65 - [address] mg/dL [facility] Comment: Supplemental ranges: <140 mg/dL before meals <180 mg/dL all other times of the day Specimen Anatomical Collection Method Collection Time Receive d Time (Source) Location / / Volume Laterality Blood specimen 08/07/2017 12:08 8 (specimen) PM EST 12:08 PM EST Yonathan Smith MD POINT OF CARE TEST ORDERABLE S Performing Organization Address City/State/ZIP Code Phon e Number [address] (ABNORMAL) Differential, Automated (08/07/2017 7:30 AM EST) [facility] gist Method Time Signature Neutrophils % 73.8 % [facility] Neutr Abs (ANC) 7.17 (H) 1.70 - [facility] 6.10 [facility] x10(3)/[facility] LABORATORY Lymphocytes % 12.2 % [facility] Lymphocytes Abs 1.2 0.9 - 3.2 [facility] x10(3)/[facility] LABORATORY Monocytes % 9.0 % [facility] Monocyte Abs 0.9 0.3 - 0.9 [facility] x10(3)/[facility] LABORATORY Eosinophils % 3.9 % [facility] Eosinophils Abs 0.4 0.0 - 0.4 [facility] x10(3)/[facility] LABORATORY Basophils % 0.6 % [facility] Basophils Abs 0.1 0.0 - 0.1 [facility] x10(3)/[facility] LABORATORY Immature Gran % 0.50 % [facility] [...] Address City/State/[place] [address] (ABNORMAL) Hemogram (08/07/2017 7:30 AM EST) Analysis Performed At Patho logist Time Signature WBC 9.7 (H) 4.0 - 9.5 [facility] x10(3)/[facility] LABORATORY RBC 3.54 (L) 4.58 - [facility] 5.54 [facility] x10(6)/[facility] LABORATORY Hemoglobin 9.9 (L) 13.7 - [facility] 16.5 gm/dL [facility] Hematocrit 32.3 (L) 40.5 - [facility] 48.5 % [facility] MCV 91.2 82.9 - [facility] 93.1 fL [facility] MCH 28.0 27.5 - [facility] 32.1 pg [facility] MCHC 30.7 (L) 32.0 - [facility] 35.7 gm/dL [facility] Platelets 312 145 - 357 [facility] x10(3)/[facility] LABORATORY RDWSD 53.2 (H) 36.0 - [facility] 45.0 [facility] LABORATORY RDWCV 16.0 (H) 11.4 - [facility] 13.8 % [facility] MPV 8.9 7.6 - 12.9 [facility] LABORATORY nRBC % Auto 0.0 % [facility] nRBC Abs Auto 0.000 0.000 - [facility] 0.000 [facility] x10(3)/[facility] LABORATORY Specimen Anatomical Collection Method Collection Time Receive d Time (Source) Location / / Volume Laterality Blood specimen 08/07/2017 7:30 AM 018 7:45 (specimen) EST AM EST Resulting Agency Comment Spec In Lab Yonathan Smith MD HEMATOLOGY ORDERABLES Performing Organization Address City/State/[place] [address] (ABNORMAL) Basic Metabolic Panel (non-fasting) (08/07/2017 7:30 AM EST) athologist Signature Glucose Lvl 80 65 - 199 [facility] mg/dL [facility] Comment: Diabetes: >=200 mg/dL plus symp toms BUN 31 (H) 10 - 20 mg/dL [facility] Creatinine 1.22 0.80 - 1.50 mg/dL [place] [...] or in patients with acute kidney failure. [email or web address] [email or web address] Specimen Anatomical Collection Method Collection Time Receive d Time (Source) Location / / Volume Laterality Blood specimen 08/07/2017 7:30 AM 018 7:45 (specimen) EST AM EST Resulting Agency Comment Spec In Lab Yonathan Smith MD CHEMISTRY ORDERABLES Performing Organization Address City/[facility] [place]/ZIP [facility] Phon e Number [address] POCT Glucose (08/07/2017 7:27 AM EST) P athologist Signature POC Glucose 81 65 - 199 [facility] mg/dL [facility] Comment: Supplemental ranges: <140 mg/dL before meals <180 mg/dL all other times of the day Specimen Anatomical Collection Method Collection Time Receive d Time (Source) Location / / Volume Laterality Blood specimen 08/07/2017 7:27 AM 018 7:27 (specimen) EST AM EST Yonathan Smith MD POINT OF CARE TEST ORDERABLE S Performing Organization Address City/[facility] [place]/ZIP [facility] [place] [address] APTT (08/07/2017 7:04 AM EST) athologist Signature PTT 34 25 - 35 sec [facility] Comment: The recommended therapeutic range for fu ll dose, unfractionated heparin at [facility] is 80 ? [...] [facility] [place] [address] (ABNORMAL) Prothrombin Time (08/07/2017 [...] [facility] [place] [address] POCT Glucose (08/07/2017 4:03 AM EST) athologist Signature POC Glucose 93 65 - 199 [facility] mg/dL [facility] Comment: Supplemental ranges: <140 mg/dL before meals <180 mg/dL all other times of the day Specimen Anatomical Collection Method Collection Time Receive d Time (Source) Location / / Volume Laterality Blood specimen 08/07/2017 4:03 AM 018 4:03 (specimen) EST AM EST Yonathan Smith MD POINT OF CARE TEST ORDERABLE S Performing Organization Address City/State/[place] [address] POCT Glucose (08/07/2017 12:04 AM EST) athologist Signature POC Glucose 107 65 - 199 [facility] mg/dL [facility] Comment: Supplemental ranges: <140 mg/dL before meals <180 mg/dL all other times of the day Specimen Anatomical Collection Method Collection Time Receive d Time (Source) Location / / Volume Laterality Blood specimen 08/07/2017 12:04 8 (specimen) AM EST 12:04 AM EST Yonathan Smith MD POINT OF CARE TEST ORDERABLE S Performing Organization Address City/State/ZIP Code Phon e Number [address] POCT Glucose (08/06/2017 7:56 PM EST) athologist Signature POC Glucose 178 65 - 199 [facility] mg/dL [facility] Comment: Supplemental ranges: <140 [...] [facility] [place]/ZIP Code Phon e Number [address] TcPO2 (08/06/2017 2:32 PM EST) Component Value Ref Test Analysis Performed At [facility] gist Range Method Time Signature VB Text Department: Vascular Surgery Lab VASCUBASE Report Patient: [id number] (GREGORY HOANG) CPT: 7150355 ICD10: I99.8 Referring Physician: YONATHAN SMITH ?? [...] than 240, repeat 8 units (no mo 273 ( Given - Provider: Mira Truong RN) [...] in this encounter Care Teams Director Of Field Sales Relationship Specialty Start Date End Date Lovely Vicente MD PCP - General 04/16/[address] [place] [address] [address] [facility] [address] [place] [address] documented as of this encounter
--- OUTSIDE RECORDS SUMMARY | 2022-03-23 09:39 | XMS_ITS | Encounter Summary ---
:1945 Author Organization [facility] [place] [address] Care Team Providers Name Role Phone Lovely Vicente MD Primary Care Provider Reason for Visit Reason Comments Foot Ulcer WOUND CHECK Auth/Cert Specialty Diagnoses / Procedures Referred By Contact Refer red To Contact Diagnoses Critical lower limb ischemia CELLULITIS RT FOOT Procedures EMERGENCY Referral ID Status Reason Start Date Expiration Date Visits Requ ested Visits Authorized [id number] 1 1 Encounter Details Date Type Department Care Team Description 08/06/2017 [facility] ischemia [facility] [address] [place], [place] VASCULAR SURGERY [id number] [place] [address] [phone] Social History Tobacco Use Types Packs/Day Years [...] Smith MD - 08/06/2017 1:00 PM EST [facility] staff: 1. RIGHT leg CLI [...] Nobles MD [facility] CARDIOLOGY [place], [place] [address] (Wo rk) 05/28/2022 Appointment Cardiology Zulma Dolan MD [facility] [place], [place] [address] (Wo rk) 05/28/2022 Laboratory Appointment Lab 05/28/2022 Office Visit Cardiology Zulma Dolan MD [facility] [place] [address] Liz Poole PA [facility] [place] [address] 06/10/2022 Office Visit Dermatology Laura Scherer MD [facility] [address] [place], [place] [address] (Wo rk) documented as of this encounter Visit Diagnoses Diagnosis Critical lower limb ischemia Unspecified circulatory system disorder documented in this encounter Care Teams [employer] Scout Relationship Specialty Start Date End Date Lovely Vicente MD PCP - General 04/16/15 [facility] [address] [place] [address] documented as of this encounter
--- OUTSIDE RECORDS SUMMARY | 2022-03-23 09:39 | XMS_ITS | Encounter Summary ---
:1945 [place] [address] Care Team Providers Name Role Phone Lovely Vicente MD Primary Care Provider Encounter Details Date Type Department Care Team Description 08/04/2017 Notes Only Cardiac Surgery Makayla Wilson SALESPERSON HEARING AIDS [facility] [place] [address] CARDIAC SURGERY [phone] [place], [place] [address] (Wo rk) Social History Tobacco [...] MD [facility] [address] [place], [place] [address] (Wo rk) 05/28/2022 Appointment Cardiology Zulma Dolan MD [facility] [place], [place] 0[address] (Wo rk) 05/28/2022 Laboratory Appointment Lab 05/28/2022 Office Visit Cardiology Zulma Dolan MD [facility] [place] [address] Liz Poole PA [facility] [place] [address] 06/10/2022 Office Visit Dermatology Laura Scherer MD [facility] [address] [place], [place] [address] (Wo rk) documented as of this encounter Visit Diagnoses Not on filedocumented in this encounter Care Teams Director Corporate Communications Relationship Specialty Start Date End Date Lovely Vicente MD PCP - General 04/16/[address] [place] [address] documented as of this encounter
--- OUTSIDE RECORDS SUMMARY | 2022-03-23 09:39 | XMS_ITS | Encounter Summary ---
:1945 Author Organization [facility] [place] [address] Care Team Providers Name Role Phone Lovely Vicente MD Primary Care Provider Reason for Visit Auth/Cert Specialty Diagnoses / Procedures Referred By Contact Refer red To Contact Diagnoses Critical lower limb ischemia CELLULITIS RT FOOT Procedures EMERGENCY Referral ID Status Reason Start Date Expiration Date Visits Requ ested Visits Authorized [id number] 1 1 Encounter Details Date Type Department Care Team Description 08/04/2017 Office Visit Cardiology at [facility] Danette Maxwell Incisional pain; [facility] A, 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 [...] MD [facility] [address] [place], [place] [address] (Wo rk) 05/28/2022 Appointment Cardiology Zulma Dolan MD [facility] [place], [place] [address] (Wo rk) 05/28/2022 Laboratory Appointment Lab 05/28/2022 Office Visit Cardiology Zulma Dolan MD [facility] [place] [address] Liz Poole PA [facility] [place] [address] 06/10/2022 Office Visit Dermatology Laura Scherer MD [facility] DR [address] [place], [...] Daniele gutiérrez 08/04/2017 4:13 PM Danette Maxwell MARINE WELDER IMG DX ORDERABLES documented in this encounter Visit Diagnoses Diagnosis Incisional pain Disturbance of skin sensation Ischemic cardiomyopathy Other specified forms of chronic ischemi c heart disease ASCVD (arteriosclerotic cardiovascular d isease) Unspecified cardiovascular disease Systolic heart failure, unspecified hear t failure chronicity Incisional pain Disturbance of skin sensation documented in this encounter Care Teams [employer] Be[employer] Relationship Specialty Start Date End Date Lovely Vicente MD PCP - General 04/16/[address] [place] [address] documented as of this encounter
--- OUTSIDE RECORDS SUMMARY | 2022-03-23 09:39 | XMS_ITS | Encounter Summary ---
:1945 Author Organization [facility] [place] [address] Care Team Providers Name Role Phone Lovely Vicente MD Primary Care Provider Encounter Details Date Type Department Care Team Description 08/04/2017 Notes Only Cardiac Surgery Makayla Wilson APRN [facility] [place] [address] CARDIAC SURGERY [phone] [place] [id number] (Wo rk) Social History Tobacco Use Types [...] Nobles MD [facility] CARDIOLOGY [place], [place] 0[address] (Wo rk) 05/28/2022 Appointment Cardiology Zulma Dolan MD [facility] [place], [place] [address] (Wo rk) 05/28/2022 Laboratory Appointment Lab 05/28/2022 Office Visit Cardiology Zulma Dolan MD [facility] [place] [address] Liz Poole PA [facility] [place] [address] 06/10/2022 Office Visit Dermatology Laura Scherer MD [facility] [address] [place], [place] [address] (Wo rk) documented as of this encounter Visit Diagnoses Not on filedocumented in this encounter Care Teams Residential Sales Manager Relationship Specialty Start Date End Date Lovely Vicente MD PCP - General 04/16/15 [facility] [address] [place] [address] documented as of this encounter
--- OUTSIDE RECORDS SUMMARY | 2022-03-23 09:39 | XMS_ITS | Encounter Summary ---
:1945 Author Organization [facility] Address [facility] [place] [address] Care Team Providers Name Role Phone Lovely Vicente MD Primary Care Provider Reason for Visit Auth/Cert Specialty Diagnoses / Procedures Referred By Contact Refer red To Contact Diagnoses Critical lower limb ischemia CELLULITIS RT FOOT Procedures EMERGENCY Referral ID Status Reason Start Date Expiration Date Visits Requ ested Visits Authorized [id number] 1 1 Encounter Details Date Type Department Care Team Description 08/04/2017 Laboratory Lab 3L [place] Cardiomyopathy, unspecified type; Appointment [facility] Systolic congestive heart failure, unspecified congestive heart failure chronicity; Hospital Coronary artery rupture; [facility] Ischemic cardiomyopathy; Drive Atherosclerosis of [place] co ronary artery, angina presence unspecified, unspecified whether [place] or transplanted heart; [place], [place] Essential hyper tension, malignant; [id number] 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, unspecified stove refinisher insulin use status [phone] Social History Tobacco Use Types Packs/Day Years [...] MD [facility] ER CARDIOLOGY [place], [place] 0[address] (Wo rk) 05/28/2022 Appointment Cardiology Zulma Dolan MD [facility] [place], [place] 0[address] (Wo rk) 05/28/2022 Laboratory Appointment Lab 05/28/2022 Office Visit Cardiology Zulma Dolan MD [facility] [place] [address] Liz Poole PA [facility] [place] [address] 06/10/2022 Office Visit Dermatology Laura Scherer MD [facility] [address] OLOGY [place], [place] 0[address] ( rk) documented as of this encounter Procedures Procedure Name Priority Date/Time Associated Diagnosis Comme nts HEMOGRAM Routine 08/04/2017 12:55 Essential Results for this PM EST hypertension, procedure are in malignant the results section. PROTHROMBIN TIME Routine 08/04/2017 12:55 Coronary artery Resu lts for this PM EST rupture procedure are in Ischemic the results cardiomyopathy section. Atherosclerosis of [place] coronary artery, angina presence unspecified, unspecified whether [place] or transplanted heart URIC ACID Routine 08/04/2017 [...] with the results diabetic section. nephropathy, unspecified stove refinisher insulin use status Essential hypertension, malignant COMPREHENSIVE Routine 08/04/2017 12:55 Essential Results fo r this METABOLIC PANEL PM EST hypertension, procedure a re in (NON-FASTING) malignant the results section. documented in this encounter Results Uric acid (08/04/2017 12:55 PM EST) P athologist Signature Uric Acid 7.1 3.5 - 8.5 [facility] RYAN mg/dL [facility] LABORATORY Specimen Anatomical Collection Method Collection Time Receive d Time (Source) Location / / Volume Laterality Blood specimen 08/04/2017 12:55 8 1:01 (specimen) PM EST PM EST Resulting Agency Comment Spec In Lab Lovely Vicente MD CHEMISTRY ORDERABLES Performing Organization Address City/State/[place] [address] (ABNORMAL) Hemogram (08/04/2017 12:55 PM EST) Analysis Performed At Patho logist Time Signature WBC 15.8 (H) 4.0 - 9.5 [place] RYAN x10(3)/[facility] LABORATORY RBC 3.48 (L) 4.58 - [facility] RYAN 5.54 [facility] x10(6)/[facility] LABORATORY Hemoglobin 9.9 (L) 13.7 - [place] RYAN 16.5 gm/dL [facility] Hematocrit 31.4 (L) 40.5 - [place] RYAN 48.5 % [facility] MCV 90.2 82.9 - [facility] RYAN 93.1 [facility] LABORATORY MCH 28.4 27.5 - [place] RYAN 32.1 pg [facility] MCHC 31.5 (L) 32.0 - [place] RYAN 35.7 gm/dL [facility] Platelets 310 145 - 357 [facility] RYAN x10(3)/[facility] LABORATORY RDWSD 51.8 (H) 36.0 - [facility] 45.0 [facility] LABORATORY RDWCV 15.8 (H) 11.4 - [place] RYAN 13.8 % [facility] LABORATORY MPV 8.9 7.6 - 12.9 [facility] LABORATORY nRBC % Auto 0.0 % [facility] LABORATORY nRBC Abs Auto 0.000 0.000 - [facility] 0.000 [facility] x10(3)/[facility] LABORATORY Specimen Anatomical Collection Method Collection Time Receive d Time (Source) Location / / Volume Laterality Blood specimen 08/04/2017 12:55 8 1:01 (specimen) PM EST PM EST Resulting Agency Comment Spec In Lab Lovely Vicente MD HEMATOLOGY ORDERABLES Performing Organization Address City/State/[place] [address] (ABNORMAL) Comprehensive metabolic panel (non-fasting) (08/04/2017 12:55 PM EST) P athologist Signature Glucose Lvl 208 (H) 65 - 199 [facility] mg/dL [facility] Comment: Diabetes: >=200 mg/dL plus symp toms BUN 32 (H) 10 - 20 mg/dL [facility] LABORATORY Creatinine 1.58 (H) 0.80 [...] LABORATORY Albumin 3.4 3.2 - 5.2 gm/dL [facility]OR[facility] AST 20 0 - 39 unit/L [facility] ALT 21 0 - 55 unit/L [facility] Alk Phos 93 40 - 120 unit/L [facility] Total Bilirubin 0.4 0.2 - 1.3 mg/dL [facility] LABORATORY Estimated GFR 43 (L) >=60 [place] RYAN [facility] LABORATORY Comment: The reported eGFR should be multiplied b y 1.2 for patients. The MDRD is not an appropriate measure o f renal function for patients with body mass extremes or in patients with acute kidney failure. http://[employer]/DHnkdep http://[employer]/DHMCnkf Specimen Anatomical Collection Method Collection Time Receive d Time (Source) Location / / Volume Laterality Blood specimen 08/04/2017 12:55 8 1:01 (specimen) PM EST PM EST Resulting Agency Comment Spec In Lab Lovely Vicente MD CHEMISTRY ORDERABLES Performing Organization Address City/State/ZIP Code Phon e Number [place] [id number] [address]OSPITAL LAB[address]ORY [address] (ABNORMAL) Hemoglobin A1c (08/04/2017 [...] Mellitus, Diabetes Care 2013; 36: Suppl. 1, S67-28 Est Avg Gluc See note mg/dL [facility] Comment: Estimated Average Glucose not [...] into estimated average glucose values. ??Diabetes Care 2008:31(8):9802-7404. Specimen Anatomical Collection Method Collection Time Receive d Time (Source) Location / / Volume Laterality Blood specimen 08/04/2017 12:55 8 1:01 (specimen) PM EST PM EST Resulting Agency Comment Spec In Lab Lovely Vicente MD CHEMISTRY ORDERABLES Performing Organization Address City/State/[place] [address] (ABNORMAL) Prothrombin Time (08/04/2017 12:55 PM EST) P athologist Signature PT 35.4 (H) 11.8 - 14.0 [facility] LABORATORY INR 3.5 (H) 0.9 - 1.1 [facility] [...] Organization Address City/State/[place] [address] (ABNORMAL) pro-Brain Natriuretic Peptide (08/04/2017 12:55 PM EST) P athologist Signature ProBNP 3,133 (H) <=125 [facility] pg/mL [facility] Specimen Anatomical Collection Method Collection Time Receive d Time (Source) Location / / Volume Laterality Blood specimen 08/04/2017 12:55 8 1:01 (specimen) PM EST PM EST Resulting Agency Comment Spec In Lab Danette Maxwell APRN CHEMISTRY ORDERABLES Performing Organization Address City/State/[place] [address] documented in this encounter Visit Diagnoses Diagnosis Cardiomyopathy, unspecified type Systolic congestive heart failure, unspe cified congestive heart failure chronicity Coronary artery rupture Acute myocardial infarction, unspecified site, episode of care unspecified Ischemic cardiomyopathy Other specified forms of chronic ischemi c heart disease Atherosclerosis of [place] coronary arter y, angina presence unspecified, unspecified whether [place] or transplanted heart Essential hypertension, malignant Diabetes mellitus due to underlying cond ition with diabetic nephropathy, unspecified stove refinisher insulin use status documented in this encounter Care Teams Regional Project Manager Relationship Specialty Start Date End Date Lovely Vicente MD PCP - General 04/16/[address] [place] [address] documented as of this encounter
--- OUTSIDE RECORDS SUMMARY | 2022-03-23 09:39 | XMS_ITS | Encounter Summary ---
:1945 Author Organization [facility] [place] [address] Care Team Providers Name Role Phone Lovely Vicente MD Primary Care Provider Reason for Visit Auth/Cert Specialty Diagnoses / Procedures Referred By Contact Refer red To Contact Diagnoses Critical lower limb ischemia CELLULITIS RT FOOT Procedures EMERGENCY Referral ID Status Reason Start Date Expiration Date Visits Requ ested Visits Authorized [id number] 1 1 Encounter Details Date Type Department Care Team Description 08/06/2017 Clinical Support [place] [facility] [place] foot [facility] [place] [address] Social History Tobacco Use Types Packs/Day [...] noother symptoms except severe right foot pain. [facility] clinic called as pt on route [...] MD [facility] CARDIOLOGY [place], [place] [address] (Wo rk) 05/28/2022 Appointment Cardiology Zulma Dolan MD [facility] [place], [place] [address] (Wo rk) 05/28/2022 Laboratory Appointment Lab 05/28/2022 Office Visit Cardiology Zulma Dolan MD [facility] [place] [address] Liz Poole PA [facility] [place] [address] 06/10/2022 Office Visit Dermatology Laura Scherer MD [facility] DR [address] OLOGY [place], [place] 0375 (Wo rk) documented as [...] 444 ms MUSE SYSTEM (Bezet) Calculated P Fisher 44 degrees MUSE SYSTEM Calculated R Fisher -31 degrees MUSE SYSTEM Calculated T Fisher 106 degrees MUSE SYSTEM INTERPRETATION Normal sinus [...] disorder documented in this encounter Care Teams Ingot Supervisor Relationship Specialty Start Date End Date Lovely Vicente MD PCP - General 04/16/[address] [place] [address] documented as of this encounter
--- OUTSIDE RECORDS SUMMARY | 2022-03-23 09:39 | XMS_ITS | Encounter Summary ---
:1945 Author Organization [facility] [place] [address] Care Team Providers Name Role Phone Lovely Vicente MD Primary Care Provider Reason for Visit Auth/Cert Specialty Diagnoses / Procedures Referred By Contact Refer red To Contact Diagnoses Critical lower limb ischemia CELLULITIS RT FOOT Procedures EMERGENCY Referral ID Status Reason Start Date Expiration Date Visits Requ ested Visits Authorized [id number] 1 1 Encounter Details Date Type Department Care Team Description 08/06/2017 Laboratory Appointment Lab at [facility] Ischemia of foot [facility] [place] [address] Social History Tobacco Use Types Packs/Day [...] [facility] ER DR [place]LYLE [place] [address] (Wo rk) 05/28/2022 Appointment Cardiology Zulma Dolan MD [facility] er Dr [place] [address] (Wo rk) 05/28/2022 Laboratory Appointment Lab 05/28/2022 Office Visit Cardiology Zulma Dolan MD [facility] [place] [address] [facility] [place] [address] 06/10/2022 Office Visit Dermatology Laura Scherer MD [facility] ER DR [address]DERMAT [place], [place] [address] (Wo rk) documented as of [...] Signature Prealbumin 19 (L) 20 - 40 [facility] mg/dL [facility] LAB[facility]ATORY Comment: Prealbumin levels are generally lower in the pediatric population; adult concentrations are usually attained near puberty. Specimen Anatomical Collection Method Collection Time Receive d Time (Source) Location / / Volume Laterality Blood specimen 08/06/2017 12:32 8 1:15 (specimen) PM EST PM EST Resulting Agency Comment Spec In Lab Airk Clement MD CHEMISTRY ORDERABLES Performing Organization Address City/State/[place] [address] (ABNORMAL) Basic Metabolic Panel (non-fasting) (08/06/2017 12:32 PM EST) athologist Signature Glucose Lvl 92 65 - 199 [facility] RYAN mg/dL [facility] LABORATORY Comment: Diabetes: >=200 mg/dL plus symp toms BUN 29 (H) 10 - 20 mg/dL [facility] LABORATORY Creatinine 1.33 0.80 - 1.50 mg/dL [facility] [...] [facility] LABORATORY Estimated GFR 53 (L) >=60 [facility] LABORATORY Comment: The reported eGFR should be multiplied b y 1.2 for patients. The MDRD is not an appropriate measure o f renal function for patients with body mass extremes or in patients with acute kidney failure. http://[employer]/DHnkdep http://[employer]/DHMCnkf Specimen Anatomical Collection Method Collection Time Receive d Time (Source) Location / / Volume Laterality Blood specimen 08/06/2017 12:32 8 1:15 (specimen) PM EST PM EST Resulting Agency Comment Spec In Lab Arik Clement MD CHEMISTRY ORDERABLES Performing Organization Address City/State/[place] [address] (ABNORMAL) Hemogram (08/06/2017 12:32 PM EST) Analysis Performed At Patho logist Time Signature WBC 11.8 (H) 4.0 - 9.5 [facility] x10(3)/[facility] LABORATORY RBC 3.49 (L) 4.58 - [facility] 5.54 [facility] x10(6)/[facility] LABORATORY Hemoglobin 9.9 (L) 13.7 - [facility] 16.5 gm/dL [facility] LABORATORY Hematocrit 32.0 (L) 40.5 - [facility] 48.5 % [facility] LABORATORY MCV 91.7 82.9 - [facility] 93.1 [facility] LABORATORY MCH 28.4 27.5 - [place] RYAN 32.1 pg [facility] LABORATORY MCHC 30.9 (L) 32.0 - [facility] 35.7 gm/dL [facility] LABORATORY Platelets 326 145 - 357 [facility] x10(3)/[facility] LABORATORY RDWSD 53.4 (H) 36.0 - [facility] 45.0 [facility] LABORATORY RDWCV 16.0 (H) 11.4 - [facility] 13.8 % [facility] LABORATORY MPV 9.1 7.6 - 12.9 [facility] LABORATORY nRBC % Auto 0.0 % [facility] LABORATORY nRBC Abs Auto 0.000 0.000 - [facility] 0.000 [facility] x10(3)/[facility] LABORATORY Specimen Anatomical Collection Method Collection Time Receive d Time (Source) Location / / Volume Laterality Blood specimen 08/06/2017 12:32 8 1:15 (specimen) PM EST PM EST Resulting Agency Comment Spec In Lab Arik Clement MD HEMATOLOGY ORDERABLES Performing Organization Address City/State/[place] [address] documented in this encounter Visit Diagnoses Diagnosis Ischemia of foot Unspecified circulatory system disorder documented in this encounter Care Teams Grocery Bagger Relationship Specialty Start Date End Date Lovely Vicente MD PCP - General 04/16/[address] [place] [address] documented as of this encounter
--- OUTSIDE RECORDS SUMMARY | 2022-03-23 09:39 | XMS_ITS | Encounter Summary ---
:1945 [place] [address] Care Team Providers Name Role Phone Lovely Vicente MD Primary Care Provider Encounter Details Date Type Department Care Team Description 08/04/2017 Orders Only Cardiac Surgery Makayla Wilson WET FINISHER [facility] Jorge [facility] [place] [address] CARDIAC SURGERY [phone] [place], [place] 0[address] (Wo rk) Social History Tobacco [...] [facility] ER DR CARLYLE [place] 0[address] (Wo rk) 05/28/2022 Appointment Cardiology Zulma Dolan MD [facility] Dr [place], [place] [address] (Wo rk) 05/28/2022 Laboratory Appointment Lab 05/28/2022 Office Visit Cardiology Zulma Dolan [place] [facility] [place] [address] Liz Poole PA [facility] [place] [address] 06/10/2022 Office Visit Dermatology Laura Scherer MD [facility] ER DR [address] [place], [place] 0[address] (Wo rk) documented as of this encounter Visit Diagnoses Not on filedocumented in this encounter Care Teams Metal Window Screen Assembler Relationship Specialty Start Date End Date Lovely Vicente MD PCP - General 04/16/[address] [place] [address] documented as of this encounter
--- OUTSIDE RECORDS SUMMARY | 2022-03-23 09:39 | XMS_ITS | Encounter Summary ---
:1945 [place] [address] Care Team Providers Name Role Phone Lovely Vicente MD Primary Care Provider Encounter Details Date Type Department Care Team Description 08/04/2017 Orders Only Cardiac Surgery Makayla Wislon ENVIRONMENTAL FIELD SERVICES TECHNICIAN [facility] Jorge [facility] [place] [address] CARDIAC SURGERY [phone] [place], [place] [address] (Wo rk) Social History Tobacco [...] [facility] [place] [address] [place] [address] (Wo rk) 05/28/2022 Appointment Cardiology Zulma Dolan MD [facility] Dr [place], [place] [address] (Wo rk) 05/28/2022 Laboratory Appointment Lab 05/28/2022 Office Visit Cardiology Zulma Dolan [place] [facility] [place] [address] Liz Poole PA [facility] [place] [address] 06/10/2022 Office Visit Dermatology Laura Scherer MD [facility] ER DR [address]DERMAT [place], [place] [address] (Wo rk) documented as of this encounter Visit Diagnoses Not on filedocumented in this encounter Care Teams Flat Ironer Relationship Specialty Start Date End Date Lovely Vicente MD PCP - General 04/16/[address] [place] [address] documented as of this encounter
--- OUTSIDE RECORDS SUMMARY | 2022-03-23 09:39 | XMS_ITS | Encounter Summary ---
:1945 Author Organization [facility] [place] [address] Care Team Providers Name Role Phone Lovely Vicente MD Primary Care Provider Reason for Visit Auth/Cert Specialty Diagnoses / Procedures Referred By Contact Refer red To Contact Diagnoses Critical lower limb ischemia CELLULITIS RT FOOT Procedures EMERGENCY Referral ID Status Reason Start Date Expiration Date Visits Requ ested Visits Authorized [id number] 1 1 Encounter Details Date Type Department Care Team Description 08/04/2017 Laboratory Appointment Lab 3L [facility] [place] [address] Social History Tobacco Use Types Packs/Day [...] [facility] [place], [place] [address] (Wo rk) 05/28/2022 Appointment Cardiology Zulma Dolan MD [facility] er [place], [place] [address] (Wo rk) 05/28/2022 Laboratory Appointment Lab 05/28/2022 Office Visit Cardiology Zulma Dolan MD [facility] [place] [address] Liz Poole PA [facility] [place] [address] 06/10/2022 Office Visit Dermatology Laura Scherer MD [facility] ER DR TEJA GR[address]DERMAT [place], [place] 0[address] (Wo rk) documented as of this encounter Visit Diagnoses Not on filedocumented in this encounter Care Teams Tubing Tester Relationship Specialty Start Date End Date Lovely Vicente MD PCP - General 04/16/[address] [place] [address] documented as of this encounter
--- OUTSIDE RECORDS SUMMARY | 2022-03-23 09:39 | XMS_ITS | Encounter Summary ---
:1945 [place] [address] Care Team Providers Name Role Phone Lovely Vicente MD Primary Care Provider Encounter Details Date Type Department Care Team Description 08/04/2017 Notes Only Pain Management at Barbra Bruno, [facility] [place] [address] [place] [address] [phone] (Wo rk) Social History Tobacco Use Types [...] bid) at this time. Barbra Soares, MSN, AUTOMOBILE MECHANIC HELPER-BC, [facility] Pain Management Clinic documented in this encounter Plan of Treatment Upcoming Encounters Date Type Specialty Care Team Description 03/26/2022 Office Visit Cardiology Vitaliy Nobles MD [facility] DR [address] [place], [place] [address] (Wo rk) 05/28/2022 Appointment Cardiology Zulma Dolan MD [facility] [place], [place] 0375 (Wo rk) 05/28/2022 Laboratory Appointment Lab 05/28/2022 Office Visit Cardiology Zulma Dolan MD [facility] [place] [address] Liz Poole PA [facility] [place] [address] 06/10/2022 Office Visit Dermatology Laura Scherer MD [facility] DR TEJA GR-DERMAT [place], [place] [address] (Wo rk) documented as of this encounter Visit Diagnoses Not on filedocumented in this encounter Care Teams Arch Cushion Skiving Machine Operator Relationship Specialty Start Date End Date Lovely Vicente MD PCP - General 04/16/[address] [place] [address] documented as of this encounter
--- OUTSIDE RECORDS SUMMARY | 2022-03-23 09:39 | XMS_ITS | Encounter Summary ---
:1945 Author Organization [facility] [place] [address] Care Team Providers Name Role Phone Lovely Vicente MD Primary Care Provider Reason for Visit Reason Comments Deep Vein Thrombosis Auth/Cert Specialty Diagnoses / Procedures Referred By Contact Refer red To Contact Diagnoses Critical lower limb ischemia CELLULITIS RT FOOT Procedures EMERGENCY Referral ID Status Reason Start Date Expiration Date Visits Requ ested Visits Authorized [id number] 1 1 Encounter Details Date Type Department Care Team Description 08/04/2017 Office Visit Vascular Surgery at [facility] itical lower limb [facility] ischemia [facility] [address] [place], [place] VASCULAR SURGERY [address] [place] [address] [phone] Social History Tobacco Use Types Packs/Day Years [...] was discharged on Coumadin. ??He presented to [facility] on 07/20 with mottled toes [...] MD [facility] ER INA [place] [address] (Mikayla alcaraz) 05/28/2022 Appointment Cardiology Zulma Dolan MD [facility] er INA [place] 0375 (Mikayla alcaraz) 05/28/2022 Laboratory Appointment Lab 05/28/2022 Office Visit Cardiology Zulma Dolan MD [facility] [place] [address] Liz Poole PA [facility] [place] [address] 06/10/2022 Office Visit Dermatology Laura Scherer MD [facility] ER DR [address]-DERMAT [place], [place] 0375 (Wo rk) documented as of this encounter Visit Diagnoses Diagnosis Critical lower limb ischemia Unspecified circulatory system disorder documented in this encounter Care Teams Alumnae Secretary Relationship Specialty Start Date End Date Lovely Vicente MD PCP - General 04/16/[address] [place] [address] documented as of this encounter
--- OUTSIDE RECORDS SUMMARY | 2022-03-23 09:39 | XMS_ITS | Encounter Summary ---
:1945 [place] [address] Care Team Providers Name Role Phone Lovely Vicente MD Primary Care Provider Reason for Visit Auth/Cert Specialty Diagnoses / Procedures Referred By Contact Refer red To Contact Diagnoses Critical lower limb ischemia CELLULITIS RT FOOT Procedures EMERGENCY Referral ID Status Reason Start Date Expiration Date Visits Requ ested Visits Authorized [id number] 1 1 Encounter Details Date Type Department Care Team Description 08/09/2017 Anesthesia Event Main Operating Room Daniele Lizama MD [facility] [place] [address] [facility] Rob Jones MD [facility] [address] [place] [address] Anesthesia Record Procedure Summary Procedure Name [...] side of Alexi Knowles, Dory arm), right; VASMI Rios, RN aiuu-nbt-zjesra catheter system; 20 gauge; 08/16/17; 1047 PIV 07/29/17; 1413; median 07/29/17 1413 by 08/16/17 1047 by cubital vein (antecubital Magdalene Hickey Williams, Dory fossa), left; VAMSI Wyatt, RN osfb-uqh-ivgfqi catheter system; 20 gauge; 08/16/17; 1047 PIV 08/06/17; 1742; cephalic 08/06/17 1742 by 0920 by vein (lateral side of Taylor Laureano Danah y, Caitlyn C, arm), right; VAMSI BONNER zisr-ehv-vkzzmg catheter system; 22 gauge, 1 in length; Eliseo LAUREANO RN VAS; distraction, intradermal injection, tolerated well, appears comfortable; 0; 08/16/17; 0920 Wound 08/07/17; 1335; knee; 08/07/17 1335 by 08/16/17 1047 by laceration; wound occured Barbara Albert iams, Dory [employer] DEVELOPER; 08/16/17; 1047 VAMSI Alonzo, RN PIV 08/07/17; 1734; cephalic 08/07/17 1734 by 1047 by vein (lateral side of Kendrick, Carlos W, Willia ms, Dory arm), left; MARCIE Wyatt RN swdz-nrn-aezgak catheter system; 22 gauge; distraction, intradermal injection, [...] Stop Room / Location 08/09/17 0802 0901 [facility] OR 14 / [facility] Procedure Diagnosis Surgeon Responsible Provider AMPUTATION, 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 Level of Consciousness: Conscious but Sleepy [...] Length: 10 cm Gauge: 21 Needle Type: Z-msugs-gjojy Medication injection made incrementally with aspirations. Nerve [...] Mcknight MD at [facility] Social History Substance Use [...] adequate IV access. Brody Santillan MD PGY-2, Cracker Off Pager #[phone] Anesthesiology Staff (Dewhirst): Pre-op summary note as [...] MD [facility] [address] [place], [place] [address] (Wo rk) 05/28/2022 Appointment Cardiology Zulma Dolan MD [facility] [place], [place] [address] (Wo rk) 05/28/2022 Laboratory Appointment Lab 05/28/2022 Office Visit Cardiology Zulma Dolan MD [facility] [place] [address] Liz Poole PA [facility] [place] [address] 06/10/2022 Office Visit Dermatology Laura Scherer MD [facility] DR [address] [place], [place] [address] (Wo rk) documented as of [...] Length: 10 cm Gauge: 21 Needle Type: I-rpodq-nkdvi Medication injection made in crementally with aspirations. [...] Procedure) documented in this encounter Care Teams [employer] Relationship Specialty Start Date End Date Lovely Vicente MD PCP - General 04/16/[address] [place] [address] [address] [place] [address] documented as of this encounter
--- OUTSIDE RECORDS SUMMARY | 2022-03-23 09:39 | XMS_ITS | Encounter Summary ---
:1945 Author Organization [facility] [place] [address] Care Team Providers Name Role Phone Lovely Vicente MD Primary Care Provider Encounter Details Date Type Department Care Team Description 08/06/2017 Orders Only Vascular Surgery at [facility] [place] APRN Ischemia of foot [facility] Jorge [facility] [place] [phone] VASCULAR SURGERY [phone] [place], [place] [address] (Wo rk) Social History [...] MD [facility] ER [address] [place] [address] (Wo rk) 05/28/2022 Appointment Cardiology Zulma Dolan MD [facility] [address] [place] [address] (Wo rk) 05/28/2022 Laboratory Appointment Lab 05/28/2022 Office Visit Cardiology Zulma Dolan MD [facility] [place] [address] Liz Poole PA [facility] [place] [address] 06/10/2022 Office Visit Dermatology Laura Scherer MD [facility] ER DR [address] [place], [place] [address] (Wo rk) documented as of [...] 444 ms MUSE SYSTEM (Bezet) Calculated P Gilliam 44 degrees MUSE SYSTEM Calculated R Gilliam -31 degrees MUSE SYSTEM Calculated T Gilliam 106 degrees MUSE SYSTEM INTERPRETATION Normal sinus [...] Signature Prealbumin 19 (L) 20 - 40 [facility] mg[facility]dL [facility] Comment: Prealbumin levels are [...] City/State/ZIP Code Phon e Number [place] [phone] (ABNORMAL) Basic Metabolic Panel (non-fasting) (08/06/2017 12:32 PM EST) athologist Signature Glucose Lvl 92 65 - 199 [facility] mg/dL [facility] Comment: [...] 31 mmol/L [facility] Anion Gap 16 (H) 5 - 15 mmol/L [facility] Calcium 8.5 8.5 - 10.5 mg/dL [facility] Estimated GFR 53 (L) >=60 [facility] Comment: The reported eGFR should be multiplied b y 1.2 for patients. The MDRD is not an appropriate measure o f renal function for patients with body mass extremes or in patients with acute kidney failure. http://Panl.Sportsvite D/B/A LeagueApps/DHnkdep http://[employer]/DHMCnkf Specimen Anatomical Collection Method Collection Time Receive d Time (Source) Location / / Volume Laterality Blood specimen 08/06/2017 12:32 8 1:15 (specimen) PM EST PM EST Resulting Agency Comment Spec In Lab Arik Clement MD CHEMISTRY ORDERABLES Performing Organization Address City/State/[place] [address] (ABNORMAL) Hemogram (08/06/2017 12:32 PM EST) Analysis Performed At Patho logist Time Signature WBC 11.8 (H) 4.0 - 9.5 [facility] x10(3)/[facility] LABORATORY RBC 3.49 (L) 4.58 - [facility] 5.54 [facility] x10(6)/[facility] LABORATORY Hemoglobin 9.9 (L) 13.7 - [facility] 16.5 gm/dL [facility] Hematocrit 32.0 (L) 40.5 - [facility] 48.5 % [facility] MCV 91.7 82.9 - [facility] 93.1 [facility] LABORATORY MCH 28.4 27.5 - [place] 32.1 pg [facility] MCHC 30.9 (L) 32.0 - [facility] 35.7 gm/dL [facility] Platelets 326 145 - 357 [facility] x[facility](3[facility] LABORATORY RDWSD 53.4 (H) 36.0 - [place] 45.0 [facility] LABORATORY RDWCV 16.0 (H) 11.4 - [facility] RYAN 13.8 % [facility] MPV 9.1 7.6 - 12.9 [facility] LABORATORY nRBC % Auto 0.0 % [facility] nRBC Abs Auto 0.000 0.000 - [place] 0.000 [facility] x10(3)/[facility] LABORATORY Specimen Anatomical Collection Method Collection Time Receive d Time (Source) Location / / Volume Laterality Blood specimen 08/06/2017 12:32 8 1:15 (specimen) PM EST PM EST Resulting Agency Comment Spec In Lab Arik Clement MD HEMATOLOGY ORDERABLES Performing Organization Address City/State/[place] [address] documented in this encounter Visit Diagnoses Diagnosis Ischemia of foot Unspecified circulatory system disorder documented in this encounter Care Teams Swiss Machinist Relationship Specialty Start Date End Date Lovely Vicente MD PCP - General 04/16/[address] [place] [address] documented as of this encounter
--- OUTSIDE RECORDS SUMMARY | 2022-03-23 09:39 | XMS_ITS | Encounter Summary ---
:1945 Author Organization [facility] [place] [address] Care Team Providers Name Role Phone Lovely Vicente MD Primary Care Provider Reason for Visit Auth/Cert Specialty Diagnoses / Procedures Referred By Contact Refer red To Contact Diagnoses Critical lower limb ischemia CELLULITIS RT FOOT Procedures EMERGENCY Referral ID Status Reason Start Date Expiration Date Visits Requ ested Visits Authorized [id number] 1 1 Encounter Details Date Type Department Care Team Description 08/09/2017 Surgery Main Operating Room Yonathan Smith AM PUTATION, Mary Hitchcock MD TRANSMETATARSAL ([facility] 12.71) [facility] DR Siddiqui [place] [address] [place] [address] [phone] Social History Tobacco Use Types Packs/Day Years [...] 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 Patient [...] Dorsalis Pedis (Ankle) Artery ?132 ? 0.94 ??Trimble-Biphasic ? Posterior Tibial (Ankle) Artery ??154 ? 1.10 ??Trimble-Biphasic ? Fourth Toe ? 67 ?0.48 ?? [...] the foot. Discharge Conditions/Prognosis: Good Discharge to: [facility] Rehab Discharge Medications: Your [...] For any problems or questions please call [phone] ZELDA Smith, harvest supervisor Nurse Clinician For issues on weeknights after 5pm and weekends please call [phone] and ask for the Vascular Fellow home economist consumer service. General Instructions None Future Appointments and Orders Future Appointments Provider Department Dept Phone 08/26/2017 4:00 PM Aurelia Rivera PA [facility] Surgery [facility] [place] [phone] 09/07/2017 3:00 PM LAB, THREE L Lab 3L [facility] [phone] 09/07/2017 4:00 PM Luz Prescott MD Endocrinology [facility] [place] [phone] 09/09/2017 8:00 AM Barbra Soares APRN Pain Management [facility] [place] [phone] Please bring a list of your current [...] For any problems or questions please call [phone] ZLEDA Smith, harvest supervisor Nurse Clinician For issues on weeknights after 5pm and weekends please call [phone] and ask for the Vascular Fellow home economist consumer service. documented in this encounter Medications at Time [...] Discharge Note Patient Destination: [facility] ([facility]) [address] [id number] Transportation: with (at bedside) Time of Discharge: by 12 noon Level of Care: swing Patient Aware: yes Family Notified: yes Md to call report to: Yissel Quintero SALESPERSON JEWELRY already called RN to call report to: [phone] Shirin Wolf Office of Care Management Pager [phone] Shirin Wolf RN - 08/16/2017 10:50 AM EST [facility] has offered pt swing bed. Pt and accept bed. will transport via car. SALESPERSON JEWELRY Yissel Quintero aware; d/c paperwork will be completed by 12 noon. [facility] requests pt arrival by 1400 today; SALESPERSON JEWELRY, RN, and family aware. SALESPERSON JEWELRY called [facility] and was told that they prefer pt to arrive with wound vac dressing applied but clamped. SALESPERSON JEWELRY applied new wound vac dressing. RN has [facility] number to call report. PASSR completed; SALESPERSON JEWELRY paged to request provider signature in highlighted space. Indigo from [facility] notified via email that home wound vac now cancelled; [facility] has picked up from room and order cancelled. Packet started and provided to head gauge unit operator. Medicare important message explained to patient, patient signed. Copy provided to patient and signature page to OCM for inclusion in pt EMR. L Radha Powers Yoselin - 08/16/2017 10:34 AM EST Office of Care Management/Fire Lieutenant Marine Patient Name: Gregory Hoang : 1945 Patient has been offered a swing bed at [facility]. The patient will be transported by private transportation. No MD to MD report necessary Please call Nursing Report to [phone], ask for waste cotton cleaner. Info to accompany patient: Narcotic Prescriptions Copies of Medication Administration Records and IV sheets for past 10 days. Plan: Fire Lieutenant Marine will be available to the patient and Bookmobile Driver-RN and/or Automobile Carpets Molder for further assistance. Patient will be discharged to: [address] [place] [id number] Radha Powers, Fire Lieutenant Marine Mira Truong, VAMSI - 08/15/2017 10:05 PM EST [address] Flores to ask if he wanted to hold metoprolol dose. BP 95/58. OK to hold this dose Courtney Brito - 08/15/2017 3:26 PM EST Office of Care Management(OCM)/Fire Lieutenant Marine(RS)/ D/C Planning re : Patient is medically ready for d/c today. RS has been in contact with [facility] to see if they could offer a bed. [facility] is still reviewing the case and need their MD to review chart prior to accepting or declining. OCM team needs to check in with [facility] tomorrow to check on status. 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 Vac in [...] patient's referral to: [facility] PHONE: [phone] FAX: [phone] CM spoke with RS who said that [...] rehab. Await recommendations from PT. Covering pager #[phone]. 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 Music Sound Light Technician Kaitlin Saha, RN Pager #[phone] Payam Rosales - 08/13/2017 2:37 PM EST Land Surveying Party Chief Encounter Note Patient Name: Gregory Hoang : [id number] MR#: [id number] Admit Date: 08/06/2017 1:41 PM Hospital Day 7 days Narrative: Visited to introduce and assess acceptance of Land Surveying Party Chief services. Pt was awake, alert, oriented and in chair and family was there. Assessment:Patient coping positively with stresses of illness/hospitalization at this time. Pt says that he is hoping to get better and his family was there. Pt says that he has family care and supportand taking one day at time. Intervention and Outcome: Provided emotional support and encouraging presence. 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 A letter describing our affiliations was reviewed with them and theywere educated about their right to choose where referrals are placed. Patient requests referral to [facility] [employer] PHONE: [phone] FAX: [phone]. And Home NPWT (Negative Pressure Wound Therapy) aka wound vac device made available to pt. Serial # confirmed. Reviewed [facility] Proof of Delivery/Assignment of Benefits Statement(POD/AOB) Form w patient or authorized agent signing on behalf of patient. Copy of POD/AOB provided to pt and other copy faxed to [employer] @ fax# [phone] Expected date of discharge: 08/12/2017. 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 Address: [address] [place] [address] [place] [address] (home) Mobile: Telephone Information: Referring Provider: No [...] 33.75) performed by Yuan Retana MD at [facility] MAIN OR ??? PRO CABG, ARTERY-VEIN, TWO N/A 07/07/2017 @CABG, TWO VENOUS GRAFTS & ARTERIAL GRAFT (WRVU 7.93) performed by Yuan Retana MD at [facility] MAIN OR ??? PRO COLONOSCOPY, REMV LESN, SNARE 01/16/2014 COLONOSCOPY, POLYPECTOMY, REMOVAL LESION BY SNARE performed by Nohemi Jaimes MD at [facility] ENDOSCOPY ??? PRO ENDOSCOPY W/VIDEO-ASST VEIN HARVEST, CABG Right 07/07/2017 ENDOSCOPIC HARVEST VEIN(S) FOR CABG (WRVU 0.31) performed by Yuan Retana MD at [facility] MAIN OR ??? PRO THYROIDECTOMY 03/28/2013 THYROIDECTOMY, TOTAL OR COMPLETE performed by Manny Mcknight MD at [facility] MAIN OR Date/Procedure Med's given/comments 08/10/17 RLE angio with multiple CRANE SERVICE TECHNICIAN to R posterior tibial artery Fentanyl [...] times daily for 10 days. 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 Heparin gtt continues to [...] : 1945 AGE 72 y.o. Address: [address] [place] [address] [place] [address] (home) Mobile: Telephone Information: Referring Provider: No [...] 33.75) performed by Yuan Retana MD at [facility] MAIN [...] 0.31) performed by Yuan Retana MD at [facility] MAIN OR ??? 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 Unsuccessful draw attempt, another clay pigeon setter will come 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 Vascular resident home economist consumer service and will forward result to the team prior to rounds. 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 Patient [...] 33.75) performed by Yuan Retana MD at [facility] MAIN OR ??? PRO CABG, ARTERY-VEIN, TWO N/A 07/07/2017 @CABG, TWO VENOUS GRAFTS & ARTERIAL GRAFT (WRVU 7.93) performed by Yuan Retana MD at [facility] MAIN OR ??? PRO COLONOSCOPY, REMV LESN, SNARE 01/16/2014 COLONOSCOPY, POLYPECTOMY, REMOVAL LESION BY SNARE performed by Nohemi Jaimes MD at [facility] ENDOSCOPY ??? PRO ENDOSCOPY W/VIDEO-ASST VEIN HARVEST, CABG Right 07/07/2017 ENDOSCOPIC HARVEST VEIN(S) FOR CABG (WRVU 0.31) performed by Yuan Retana MD at [facility] MAIN OR ??? PRO THYROIDECTOMY 03/28/2013 THYROIDECTOMY, TOTAL OR COMPLETE performed by Manny Mcknight MD at [facility] MAIN OR Functional Status/Social Hx: [...] left blue toes with CTA showing R LINE CLOSER pseudoaneurysm (now thrombosed) and occluded ATs bilaterally. [...] 2.5x80 5. Completion RLE angiogram 6. L LINE CLOSER angiogram 7. 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 - L LINE CLOSER angriogram demonstrated: High femoral bifurcation over the proximal half of the femoral head. L LINE CLOSER access in the distal L LINE CLOSER. - Closure device: Mynx Technical Procedure: The [...] for a 45cm 5F Destination. V18 and [place] and QuickCross catheters were used to select [...] 5F. A stationed picture of the L LINE CLOSER was performed as the patient was noted to have a very high bifurcation. Access appeared in the distal R LINE CLOSER. Closure and sheath removal was performed with [...] PM EST 1440 report called to 5 [place] nurse Tessa RN documented in this encounter [...] with pt and pt's spouse. Discharge to [facility]. Goal: Individualization & Mutuality [...] sit/sit to supine -- Bed Mobility Goal, [place] Level independent -- Bed Mobility Goal, Date [...] days -- Transfer Training Goal, Activity Type jzq-do-vqjdv/hftue-vr-zet -- Transfer Train Goal, [place] Level conditional independence -- Transfer Train Goal, [...] call cabello within reach, Hourly rounding by RN/RECORD CHANGER. Bed alarm / Chair alarm. Patient-specific fall [...] Smith MD - 08/15/2017 6:28 PM EST [facility] Operative Note Patient Name: Gregory Hoang : [id number] MR#: [id number] Case Date: 08/09/2017 Surgeon: Surgeon(s) and Role: [...] 2.5x80 5. Completion RLE angiogram 6. L LINE CLOSER angiogram 7. Mynx closure Precautions/Restrictions: fall, sternal [...] other (see comments) (or swing bed) Pager: [phone] BASSAM ELIAS, PT 08/14/2017 Inpatient Physical Therapy [...] to Achieve by discharge Gait Training Goal, [place] Level conditional independence;set up required Gait Training [...] these facilities over the weekend except for [facility]. CM spoke with [facility] CM Drea Sandhu, VAMSI who said that they do not anticipate any beds over the weekend. Reviewed with patient/ that they need to be aware that patient will need to take the first bed offered at the facilities that they make referrals to. Their choices are: 1- [facility] PHONE: [phone] FAX: [phone] 2- [facility] ([facility]) [address] [place] [address] 3- [facility])([facility]) [address] [place] [address] I have discussed Medicare/Private Insurance [...] RS/CM on Wednesday to follow-up. Covering pager #[phone] for today. Plan of Care - Henrique [...] with additional findings of pseudoaneurysm on R LINE CLOSER and bilateral anterior tibial artery occlusions. Was [...] an outpatient once discharged. Have patient call [phone] to set up an appointment. Follow-up: Dermatology will sign-off for now. Please do not hesitate to contact us if you have any questions orconcerns. Impression and Recommendations discussed with primary team on 08/13/2017. Karo Henderson MD Resident in Dermatology Section of Dermatology, Department of Surgery [facility] Pager [phone] Patient seen and evaluated with staff Manager Machine: Halima Cordero MD Section of Dermatology [facility] Level of Resident Supervision: Direct Supervision [...] Outcome: Ongoing (Interventions Implemented as Appropriate) 08/12/17 6116 Coping/Psychosocial Plan Of Care Reviewed With patient;spouse [...] 2.5x80 5. Completion RLE angiogram 6. L LINE CLOSER angiogram 7. Mynx closure Active Non-Hospital Problems [...] home with home health ([facility] PT&OT) Pager: [phone] YASIR TELLO OT 08/12/2017 Occupational Therapy Rehabilitation [...] 2.5x80 5. Completion RLE angiogram 6. L LINE CLOSER angiogram 7. Mynx closure Past Medical History: [...] with 24/7 assistance and maximal services) Pager: [phone] NICHOLAS MORA, PT 08/12/2017 Physical Therapy Rehabilitation [...] sit/sit to supine -- Bed Mobility Goal, [place] Level independent -- Bed Mobility Goal, Outcome Achieved -- goal ongoing Goal: Gait Training Goal Stand Alone Therapy Goal Outcome: Ongoing (Interventions Implemented as Appropriate) 08/11/17 1310 08/12/17 1510 Gait Training Goal Gait Training Goal, Date Established 08/11/17 -- Gait Training Goal, Time to Achieve 5 - 7 days -- Gait Training Goal, [place] Level conditional independence -- Gait Training Goal, [...] days -- Transfer Training Goal, Activity Type dzi-bz-fddpt/vppbb-be-ibn -- Transfer Train Goal, [place] Level conditional independence -- Transfer Training Goal, [...] Smith MD - 08/11/2017 2:52 PM EST [facility] Operative Note Patient Name: Gregory Hoang : [id number] MR#: [id number] Case Date: 08/11/2017 Surgeon: Surgeon(s) and Role: [...] 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 Completion RLE angiogram 6. L LINE CLOSER angiogram 7. Mynx closure He is very [...] Anticipated Discharge Disposition: inpatient rehabilitation facility Pager: [phone] LAWRENCE GONZALEZ, PT 08/11/2017 Physical Therapy Rehabilitation [...] to sit/sit to supine Bed Mobility Goal, [place] Level independent Goal: Gait Training Goal Stand Alone Therapy Goal Outcome: Ongoing (Interventions Implemented as Appropriate) 08/11/17 1310 Gait Training Goal Gait Training Goal, Date Established 08/11/17 Gait Training Goal, Time to Achieve 5 - 7 days Gait Training Goal, [place] Level conditional independence Gait Training Goal, Assist [...] 7 days Transfer Training Goal, Activity Type ovu-qh-qvwvk/bxhno-yg-etq Transfer Train Goal, [place] Level conditional independence Plan of David DelloAnnetta [...] call cabello within reach, Hourly rounding by RN/RECORD CHANGER. Bed alarm / Chair alarm. ? Patient-specific [...] 04/05/2013 Hospitalizations Within the Past 30 Days: [facility] 07/20/2017 Anticipated Length Of Stay (If known): Expected Length of Hospitalization: 5-7 days2-3 days Current Decision-Making Capacity: Alert and oriented x 4 Advance Care Planning: on file Kisha Hoang [facility] [phone] Current Coping/Education/Information Needs: pt and spouse state [...] Health/Prescription Coverage: Primary Insurance: MEDICARE Secondary Insurance: [employer]Art [place] Prescription Coverage: See above Preferred Pharmacy: [id number] Other: N/A Primary Care Provider: Lovely Vicente MD [phone] Patient/Caregiver Goals of Treatment: Patient plans to return home when medically ready Potential Needs for Transition of Care: Rehab/SNF: N/A Home Health: [facility]. DME: pt has a cane and [...] of care planning. Kaitlin Saha RN Pager: [phone] Plan of Care - Melba Jaramillo RN [...] Overview Goal: Plan of Care Review 08/08/17 7244 Coping/Psychosocial Plan Of Care Reviewed With patient [...] call cabello within reach, Hourly rounding by RN/RECORD CHANGER. Bed alarm / Chair alarm. Patient-specific fall [...] at bedside and MD TEAM Carrying pager [phone] contacted (via Radio page) and notified of [...] Nobles MD [facility] [address] [place], [place] [address] (Wo rk) 05/28/2022 Appointment Cardiology Zulma Dolan MD [facility] [address] [place], [place] [address] (Wo rk) 05/28/2022 Laboratory Appointment Lab 05/28/2022 Office Visit Cardiology Zulma Dolan MD [facility] [place] [address] Liz Poole PA [facility] [place] [address] 06/10/2022 Office Visit Dermatology Laura Scherer MD [facility] DR TEJA GR-DERMAT OGY [place], [place] [address] (Wo rk) documented as of [...] section. TYPE AND SCREEN Routine 08/09/2017 1:10 ([facility]/CGP/SHANDA) AM EST BASIC METABOLIC PANEL Routine 08/09/2017 [...] Signature POC Glucose 160 65 - 199 [facility] mg/dL [facility] Comment: Supplemental ranges: <140 mg/dL before meals <180 mg/dL all other times of the day Specimen Anatomical Collection Method Collection Time Receive d Time (Source) Location / / Volume Laterality Blood specimen 08/16/2017 7:28 AM 018 7:28 (specimen) EST AM EST Yonathan Smith MD POINT OF CARE TEST ORDERABLE S Performing Organization Address City/State/[place] [address] (ABNORMAL) Differential, Automated (08/16/2017 5:08 AM EST) [facility] Method Time Signature Neutrophils % 73.9 % [facility] LABORATORY Neutr Abs (ANC) 5.37 1.70 - [facility] 6.10 [facility] x10(3)/[facility] LABORATORY Lymphocytes % 10.1 % [facility] LABORATORY Lymphocytes Abs 0.7 (L) 0.9 - 3.2 [facility] x10(3)/[facility] LABORATORY Monocytes % 10.1 % [facility] LABORATORY Monocyte Abs 0.7 0.3 - 0.9 [facility] x10(3)/[facility] LABORATORY Eosinophils % 5.1 % [facility] LABORATORY Eosinophils Abs 0.4 0.0 - 0.4 [facility] x10(3)/[facility] LABORATORY Basophils % 0.4 % [facility] LABORATORY Basophils Abs 0.0 0.0 - 0.1 [facility] x10(3)/[facility] LABORATORY Immature Gran % 0.40 % [facility] [...] 0.03 0.00 - 0.04 x10(3)/[facility] LABORATORY Specimen Anatomical Collection Method Collection Time Receive d Time (Source) Location / / Volume Laterality Blood specimen 08/16/2017 5:08 AM 018 5:20 (specimen) EST AM EST Resulting Agency Comment Spec In Lab Yonathan Smith MD HEMATOLOGY ORDERABLES Performing Organization Address City/State/[place] [address] (ABNORMAL) Hemogram (08/16/2017 5:08 AM EST) Analysis Performed At Patho logist Time Signature WBC 7.3 4.0 - 9.5 [facility] x[facility](3)/[facility] LABORATORY RBC 3.36 (L) 4.58 - [place] RYAN 5.54 [facility] x10(6)/[facility] LABORATORY Hemoglobin 9.7 (L) 13.7 - [facility] 16.5 gm/dL [facility] Hematocrit 30.3 (L) 40.5 - [facility] 48.5 % [facility] MCV 90.2 82.9 - [facility] 93.1 [facility] LABORATORY MCH 28.9 27.5 - [place] 32.1 pg [facility] MCHC 32.0 32.0 - [place] 35.7 gm/dL [facility] Platelets 282 145 - 357 [facility] x10(3)/[facility] LABORATORY RDWSD 53.9 (H) 36.0 - [facility] RYAN 45.0 [facility] LABORATORY RDWCV 16.5 (H) 11.4 - [facility] RYAN 13.8 % [facility] MPV 9.0 7.6 - 12.9 [facility] LABORATORY nRBC % Auto 0.0 % [facility] LABORATORY nRBC Abs Auto 0.000 0.000 - [facility] RYAN 0.000 [facility] x10(3)/[facility] LABORATORY Specimen Anatomical Collection Method Collection Time Receive d Time (Source) Location / / Volume Laterality Blood specimen 08/16/2017 5:08 AM 018 5:20 (specimen) EST AM EST Resulting Agency Comment Spec In Lab Yonathan Smith MD HEMATOLOGY ORDERABLES Performing Organization Address City/State/[place] [address] (ABNORMAL) Basic Metabolic Panel (non-fasting) (08/16/2017 5:08 AM EST) P athologist Signature Glucose Lvl 141 65 - 199 [facility] mg/dL [facility] Comment: Diabetes: [...] LABORATORY Calcium 8.7 8.5 - 10.5 mg/dL [facility] LABOR[facility]ORY Estimated GFR 57 (L) >=60 [facility] LAB[facility] Comment: The reported eGFR should be multiplied b y 1.2 for patients. The MDRD is not an appropriate measure o f renal function for patients with body mass extremes or in patients with acute kidney failure. http://Matchup.UrbanSitter/DHnkdep http://[employer]/DHMCnkf Specimen Anatomical Collection Method Collection Time Receive d Time (Source) Location / / Volume Laterality Blood specimen 08/16/2017 5:08 AM 018 5:20 (specimen) EST AM EST Resulting Agency Comment Spec In Lab Yonathan Smith MD CHEMISTRY ORDERABLES Performing Organization Address City/State/[place] [address] (ABNORMAL) Prothrombin Time (08/16/2017 [...] MD HEMATOLOGY ORDERABLES Performing Organization Address City/[facility]/ZIP Code Phon e Number [address] POCT Glucose (08/16/2017 4:09 AM EST) athologist Signature POC Glucose 147 65 - 199 [facility]dL [facility] LABORATORY Comment: Supplemental ranges: <140 mg/dL before meals <180 mg/dL all other times of the day Specimen Anatomical Collection Method Collection Time Receive d Time (Source) Location / / Volume Laterality Blood specimen 08/16/2017 4:09 AM 018 4:09 (specimen) EST AM EST Yonathan Smith MD POINT OF CARE TEST ORDERABLE S Performing Organization Address City/[facility]/ZIP Code Phon e Number [address] POCT Glucose (08/15/2017 11:56 PM EST) athologist Signature POC Glucose 176 65 - 199 [facility] mg/dL [facility] LABORATORY Comment: Supplemental ranges: <140 mg/dL before meals <180 mg/dL all other times of the day Specimen Anatomical Collection Method Collection Time Receive d Time (Source) Location / / Volume Laterality Blood specimen 08/15/2017 11:56 8 (specimen) PM EST 11:56 PM EST Yonathan Smith MD POINT OF CARE TEST ORDERABLE S Performing Organization Address City/State/ZIP [place] [address] POCT Glucose (08/15/2017 8:05 PM EST) athologist Signature POC Glucose 136 65 - 199 [facility] mg/dL [facility] LABORATORY Comment: Supplemental ranges: <140 mg/dL before meals <180 mg/dL all other times of the day Specimen Anatomical Collection Method Collection Time Receive d Time (Source) Location / / Volume Laterality Blood specimen 08/15/2017 8:05 PM 018 8:05 (specimen) EST PM EST Yonathan Smith MD POINT OF CARE TEST ORDERABLE S Performing Organization Address City/State/[place] [address] (ABNORMAL) POCT Glucose (08/15/2017 4:50 PM EST) athologist Signature POC Glucose 232 (H) 65 - 199 [facility]/dL [facility] LABORATORY Comment: Supplemental ranges: <140 mg/dL before meals <180 mg/dL all other times of the day Specimen Anatomical Collection Method Collection Time Receive d Time (Source) Location / / Volume Laterality Blood specimen 08/15/2017 4:50 PM 018 4:50 (specimen) EST PM EST Yonathan Smith MD POINT OF CARE TEST ORDERABLE S Performing Organization Address City/State/[place] [address] POCT Glucose (08/15/2017 12:04 PM EST) athologist Signature POC Glucose 135 65 - 199 [place] mg/dL [facility] LABORATORY Comment: Supplemental ranges: <140 mg/dL before meals <180 mg/dL all other times of the day Specimen Anatomical Collection Method Collection Time Receive d Time (Source) Location / / Volume Laterality Blood specimen 08/15/2017 12:04 8 (specimen) PM EST 12:04 PM EST Yonathan Smith MD POINT OF CARE TEST ORDERABLE S Performing Organization Address City/State/[place] [address] POCT Glucose (08/15/2017 7:36 AM EST) P athologist Signature POC Glucose 124 65 - 199 [facility] mg/dL [facility] LABORATORY Comment: Supplemental ranges: <140 mg/dL before meals <180 mg/dL all other times of the day Specimen Anatomical Collection Method Collection Time Receive d Time (Source) Location / / Volume Laterality Blood specimen 08/15/2017 7:36 AM 018 7:36 (specimen) EST AM EST Yonathan Smith MD POINT OF CARE TEST ORDERABLE S Performing Organization Address City/State/ZIP Code Phon e Number [place] [id number] [facility] LAB[address]ORY Drive (ABNORMAL) Differential, Automated (08/15/2017 6:22 AM EST) Patholo gist Method Time Signature Neutrophils % 76.1 % [facility] LABORATORY Neutr Abs (ANC) 6.62 (H) 1.70 - [facility] 6.10 [facility] x10(3)/[facility] L LABORATORY Lymphocytes % 9.3 % [facility] LABORATORY Lymphocytes Abs 0.8 (L) 0.9 - 3.2 [facility] x10(3)/[facility] LABORATORY Monocytes % 9.4 % [facility] LABORATORY Monocyte Abs 0.8 0.3 - 0.9 [facility] x10(3)/[facility] LABORATORY Eosinophils % 4.0 % [facility] LABORATORY Eosinophils Abs 0.4 0.0 - 0.4 [facility] x10(3)/[facility] LABORATORY Basophils % 0.6 % [facility] LABORATORY Basophils Abs 0.0 0.0 - 0.1 [facility] x10(3)/[facility] LABORATORY Immature Gran % 0.60 % [...] Organization Address City/State/[place] [address] (ABNORMAL) Hemogram (08/15/2017 6:22 AM EST) Analysis Performed At Patho logist Time Signature WBC 8.7 4.0 - 9.5 [facility] x10(3)/[facility] LABORATORY RBC 3.21 (L) 4.58 - [place] 5.54 [facility] x10(6)/[facility] LABORATORY Hemoglobin 9.1 (L) 13.7 - [facility] 16.5 gm/dL [facility] LABORATORY Hematocrit 29.0 (L) 40.5 - [facility] 48.5 % [facility] LABORATORY MCV 90.3 82.9 - [facility] 93.1 [facility] LABORATORY MCH 28.3 27.5 - [facility] 32.1 pg [facility] LABORATORY MCHC 31.4 (L) 32.0 - [facility] 35.7 gm/dL [facility] LABORATORY Platelets 254 145 - 357 [facility] x10(3)/[facility] LABORATORY RDWSD 53.9 (H) 36.0 - [facility] 45.0 [facility] LABORATORY RDWCV 16.3 (H) 11.4 - [facility] 13.8 % [facility] LABORATORY MPV 8.8 7.6 - 12.9 [facility]ORY nRBC % Auto 0.0 % [facility] LABORATORY nRBC Abs Auto 0.000 0.000 - [place] 0.000 [facility] x10(3)/[facility] LABORATORY Specimen Anatomical Collection Method Collection Time Receive d Time (Source) Location / / Volume Laterality Blood specimen 08/15/2017 6:22 AM 018 6:33 (specimen) EST AM EST Resulting Agency Comment Spec In Lab Yonathan Smith MD HEMATOLOGY ORDERABLES Performing Organization Address City/State/[place] [address] (ABNORMAL) Basic Metabolic Panel (non-fasting) (08/15/2017 6:22 AM EST) athologist Signature Glucose Lvl 118 65 - 199 [facility] mg/dL [facility] LABORATORY Comment: Diabetes: [...] or in patients with acute kidney failure. [email or web address] Specimen Anatomical Collection Method Collection Time Receive d Time (Source) Location / / Volume Laterality Blood specimen 08/15/2017 6:22 AM 018 6:33 (specimen) EST AM EST Resulting Agency Comment Spec In Lab Yonathan Smith MD CHEMISTRY ORDERABLES Performing Organization Address City/State/[place] [address] (ABNORMAL) Prothrombin Time (08/15/2017 [...] MD HEMATOLOGY ORDERABLES Performing Organization Address City/[facility]/[place] [address] POCT Glucose (08/15/2017 4:33 AM EST) athologist Signature POC Glucose 164 65 - 199 [facility] mg/dL [facility] LABORATORY Comment: Supplemental ranges: <140 mg/dL before meals <180 mg/dL all other times of the day Specimen Anatomical Collection Method Collection Time Receive d Time (Source) Location / / Volume Laterality Blood specimen 08/15/2017 4:33 AM 018 4:33 (specimen) EST AM EST Yonathan Smith MD POINT OF CARE TEST ORDERABLE S Performing Organization Address City/State/[place] [address] POCT Glucose (08/15/2017 12:12 AM EST) athologist Signature POC Glucose 89 65 - 199 [facility] mg/dL [facility] LABORATORY Comment: Supplemental ranges: <140 mg/dL before meals <180 mg/dL all other times of the day Specimen Anatomical Collection Method Collection Time Receive d Time (Source) Location / / Volume Laterality Blood specimen 08/15/2017 12:12 8 (specimen) AM EST 12:12 AM EST Yonathan Smith MD POINT OF CARE TEST ORDERABLE S Performing Organization Address City/State/[place] [address] (ABNORMAL) POCT Glucose (08/14/2017 8:07 PM EST) athologist Signature POC Glucose 204 (H) 65 - 199 [place] mg/dL [facility] LABORATORY Comment: Supplemental ranges: <140 mg/dL before meals <180 mg/dL all other times of the day Specimen Anatomical Collection Method Collection Time Receive d Time (Source) Location / / Volume Laterality Blood specimen 08/14/2017 8:07 PM 018 8:07 (specimen) EST PM EST Yonathan Smith MD POINT OF CARE TEST ORDERABLE S Performing Organization Address City/State/[place] [address] POCT Glucose (08/14/2017 5:11 PM EST) athologist Signature POC Glucose 174 65 - 199 [place] mg/dL [facility] LABORATORY Comment: Supplemental ranges: <140 mg/dL before meals <180 mg/dL all other times of the day Specimen Anatomical Collection Method Collection Time Receive d Time (Source) Location / / Volume Laterality Blood specimen 08/14/2017 5:11 PM 018 5:11 (specimen) EST PM EST Yonathan Smith MD POINT OF CARE TEST ORDERABLE S Performing Organization Address City/State/[place] [address] POCT Glucose (08/14/2017 12:10 PM EST) athologist Signature POC Glucose 141 65 - 199 [facility] mg/dL [facility] LABORATORY Comment: Supplemental ranges: <140 mg/dL before meals <180 mg/dL all other times of the day Specimen Anatomical Collection Method Collection Time Receive d Time (Source) Location / / Volume Laterality Blood specimen 08/14/2017 12:10 8 (specimen) PM EST 12:10 PM EST Yonathan Smith MD POINT OF CARE TEST ORDERABLE S Performing Organization Address City/State/ZIP Code Phon e Number [address] POCT Glucose (08/14/2017 8:07 AM EST) P athologist Signature POC Glucose 158 65 - 199 [facility] mg/dL [facility] LABORATORY Comment: Supplemental ranges: <140 mg/dL before meals <180 mg/dL all other times of the day Specimen Anatomical Collection Method Collection Time Receive d Time (Source) Location / / Volume Laterality Blood specimen 08/14/2017 8:07 AM 018 8:07 (specimen) EST AM EST Yonathan Smith MD POINT OF CARE TEST ORDERABLE S Performing Organization Address City/State/[place] [address] (ABNORMAL) Differential, Automated (08/14/2017 4:52 AM EST) Patholo gist Method Time Signature Neutrophils % 78.6 % [facility] LABORATORY Neutr Abs (ANC) 7.70 (H) 1.70 - [facility] 6.10 [facility] x10(3)/[facility] L LABORATORY Lymphocytes % 7.8 % [facility] LABORATORY Lymphocytes Abs 0.8 (L) 0.9 - 3.2 [facility] x10(3)/[facility] LABORATORY Monocytes % 8.8 % [facility] LABORATORY Monocyte Abs 0.9 0.3 - 0.9 [facility] x10(3)/[facility] LABORATORY Eosinophils % 4.0 % [facility] LABORATORY Eosinophils Abs 0.4 0.0 - 0.4 [facility] x10(3)/[facility] LABORATORY Basophils % 0.5 % [facility] LABORATORY Basophils Abs 0.0 0.0 - 0.1 [facility] x10(3)/[facility] LABORATORY Immature Gran % 0.30 % [...] Melisa Gran Abs 0.03 0.00 - 0.04 x10(3)/[facility] MAR Y [facility] LABORATORY Specimen Anatomical Collection Method Collection Time Receive d Time (Source) Location / / Volume Laterality Blood specimen 08/14/2017 4:52 AM 018 5:08 (specimen) EST AM EST Resulting Agency Comment Spec In Lab Yonathan Smith MD HEMATOLOGY ORDERABLES Performing Organization Address City/State/[place] [address] (ABNORMAL) Hemogram (08/14/2017 4:52 AM EST) Analysis Performed At Patho logist Time Signature WBC 9.8 (H) 4.0 - 9.5 [facility] x10(3)/[facility] LABORATORY RBC 3.32 (L) 4.58 - [facility] 5.54 [facility] x10(6)/[facility] LABORATORY Hemoglobin 9.5 (L) 13.7 - [facility] 16.5 gm/dL [facility] LABORATORY Hematocrit 30.3 (L) 40.5 - [facility] 48.5 % [facility] LABORATORY MCV 91.3 82.9 - [facility] 93.1 [facility] LABORATORY MCH 28.6 27.5 - [place] 32.1 pg [facility] LABORATORY MCHC 31.4 (L) 32.0 - [facility] 35.7 gm/dL [facility] LABORATORY Platelets 263 145 - 357 [facility] x10(3)/[facility] LABORATORY RDWSD 54.8 (H) 36.0 - [place] [address] [facility] RDWCV 16.5 (H) 11.4 - [facility] 13.8 % [facility] LABORATORY MPV 9.1 7.6 - 12.9 [facility] LABORATORY nRBC % Auto 0.0 % [facility] LABORATORY nRBC Abs Auto 0.000 0.000 - [facility] 0.000 [facility] x10(3)/[facility] LABORATORY Specimen Anatomical Collection Method Collection Time Receive d Time (Source) Location / / Volume Laterality Blood specimen 08/14/2017 4:52 AM 018 5:08 (specimen) EST AM EST Resulting Agency Comment Spec In Lab Yonathan Smith MD HEMATOLOGY ORDERABLES Performing Organization Address City/State/[place] [address] (ABNORMAL) Prothrombin Time (08/14/2017 [...] Organization Address City/State/[place] [address] (ABNORMAL) Basic Metabolic Panel (non-fasting) (08/14/2017 4:52 AM EST) P athologist Signature Glucose Lvl 135 65 - 199 [facility] mg/dL [facility] LABORATORY Comment: Diabetes: [...] or in patients with acute kidney failure. [email or web address] Specimen Anatomical Collection Method Collection Time Receive d Time (Source) Location / / Volume Laterality Blood specimen 08/14/2017 4:52 AM 018 5:08 (specimen) EST AM EST Resulting Agency Comment Spec In Lab Yonathan Smith MD CHEMISTRY ORDERABLES Performing Organization Address City/State/[place] [address] POCT Glucose (08/14/2017 3:56 AM EST) P athologist Signature POC Glucose 135 65 - 199 [facility] mg/dL [facility] LABORATORY Comment: Supplemental ranges: <140 mg/dL before meals <180 mg/dL all other times of the day Specimen Anatomical Collection Method Collection Time Receive d Time (Source) Location / / Volume Laterality Blood specimen 08/14/2017 3:56 AM 018 3:56 (specimen) EST AM EST Yonathan Smith MD POINT OF CARE TEST ORDERABLE S Performing Organization Address City/State/[place] [address] POCT Glucose (08/13/2017 11:13 PM EST) athologist Signature POC Glucose 118 65 - 199 [place] mg/dL [facility] LABORATORY Comment: Supplemental ranges: <140 mg/dL before meals <180 mg/dL all other times of the day Specimen Anatomical Collection Method Collection Time Receive d Time (Source) Location / / Volume Laterality Blood specimen 08/13/2017 11:13 8 (specimen) PM EST 11:13 PM EST Yonathan Smith MD POINT OF CARE TEST ORDERABLE S Performing Organization Address City/[facility]/[place] [address] (ABNORMAL) POCT Glucose (08/13/2017 8:08 PM EST) athologist Signature POC Glucose 204 (H) 65 - 199 [facility] mg/dL [facility] LABORATORY Comment: Supplemental ranges: <140 mg/dL before meals <180 mg/dL all other times of the day Specimen Anatomical Collection Method Collection Time Receive d Time (Source) Location / / Volume Laterality Blood specimen 08/13/2017 8:08 PM 018 8:08 (specimen) EST PM EST Yonathan Smith MD POINT OF CARE TEST ORDERABLE S Performing Organization Address City/State/[place] [address] POCT Glucose (08/13/2017 4:02 PM EST) athologist Signature POC Glucose 145 65 - 199 [facility] mg/dL [facility] LABORATORY Comment: Supplemental ranges: <140 mg/dL before meals <180 mg/dL all other times of the day Specimen Anatomical Collection Method Collection Time Receive d Time (Source) Location / / Volume Laterality Blood specimen 08/13/2017 4:02 PM 018 4:02 (specimen) EST PM EST Yonathan Smith MD POINT OF CARE TEST ORDERABLE S Performing Organization Address City/State/[place] [address] POCT Glucose (08/13/2017 11:31 AM EST) athologist Signature POC Glucose 179 65 - 199 [facility] mg/dL [facility] LABORATORY Comment: Supplemental ranges: <140 mg/dL before meals <180 mg/dL all other times of the day Specimen Anatomical Collection Method Collection Time Receive d Time (Source) Location / / Volume Laterality Blood specimen 08/13/2017 11:31 8 (specimen) AM EST 11:31 AM EST Yonathan Smith MD POINT OF CARE TEST ORDERABLE S Performing Organization Address City/[facility]/[place] [address] (ABNORMAL) POCT Glucose (08/13/2017 10:16 AM EST) athologist Signature POC Glucose 211 (H) 65 - 199 [facility] mg/dL [facility] LABORATORY Comment: Supplemental ranges: <140 mg/dL before meals <180 mg/dL all other times of the day Specimen Anatomical Collection Method Collection Time Receive d Time (Source) Location / / Volume Laterality Blood specimen 08/13/2017 10:16 8 (specimen) AM EST 10:16 AM EST Yonathan Smith MD POINT OF CARE TEST ORDERABLE S Performing Organization Address City/[facility]/[place] [address] JULIAN, legs, multiple levels (08/13/2017 7:42 AM EST) Component Value Ref Test Analysis Performed At Patholo gist Range Method Time Signature VB Text Department: Vascular Surgery Lab VASCUBASE Report Patient: [id number] (GREGORY HOANG) CPT: 46901 ICD10: I99.8 Referring Physician: YONATHAN SMITH ?? Indications: s/p R 1,2,3 toe amps with red left foot, need n ew baseline Diabetes mellitus: yes ICD10 Diagnosis Code: I99.8 Findings: Right ?Pressure (mm Hg) ?? JULIAN ??Waveform ?TBI ?? Brachial Artery ?138 ? Dorsalis Pedis (Ankle) Arter y ?132 ? 0.94 ??Trimble- Biphasic ? Posterior Tibial (Ankle) Art anila ??154 ? 1.10 ??Trimble-Biphasic ? Fourth Toe ? 67 ? 0.48 [...] 156 65 - 199 [place] mg/dL [facility] LABORATORY Comment: Supplemental ranges: <140 mg/dL before meals <180 mg/dL all other times of the day Specimen Anatomical Collection Method Collection Time Receive d Time (Source) Location / / Volume Laterality Blood specimen 08/13/2017 7:33 AM 018 7:33 (specimen) EST AM EST Yonathan Smith MD POINT OF CARE TEST ORDERABLE S Performing Organization Address City/State/ZIP Code [place] [address] (ABNORMAL) Differential, Automated (08/13/2017 5:33 AM EST) [facility] Method Time Signature Neutrophils % 77.8 % [facility] LABORATORY Neutr Abs (ANC) 7.83 (H) 1.70 - [facility] 6.10 [facility] x10(3)/[facility] L LABORATORY Lymphocytes % 8.4 % [facility] LABORATORY Lymphocytes Abs 0.8 (L) 0.9 - 3.2 [facility] x10(3)/[facility] LABORATORY Monocytes % 8.3 % [facility] LABORATORY Monocyte Abs 0.8 0.3 - 0.9 [facility] x10(3)/[facility] LABORATORY Eosinophils % 4.6 % [facility] LABORATORY Eosinophils Abs 0.5 (H) 0.0 - 0.4 [facility] x10(3)/[facility] LABORATORY Basophils % 0.5 % [facility] LABORATORY Basophils Abs 0.0 0.0 - 0.1 [facility] x10(3)/[facility] LABORATORY Immature Gran % 0.40 % [...] Melisa Gran Abs 0.04 0.00 - 0.04 x10(3)/[facility] MAR Y [facility] LABORATORY Specimen Anatomical Collection Method Collection Time Receive d Time (Source) Location / / Volume Laterality Blood specimen 08/13/2017 5:33 AM 018 6:04 (specimen) EST AM EST Resulting Agency Comment Spec In Lab Yonathan Smith MD HEMATOLOGY ORDERABLES Performing Organization Address City/State/[place] [address] (ABNORMAL) Hemogram (08/13/2017 5:33 AM EST) Analysis Performed At Patho logist Time Signature WBC 10.1 (H) 4.0 - 9.5 [facility] x[facility](3)/[facility] LABORATORY RBC 3.21 (L) 4.58 - [place] 5.54 [facility] x10(6)/[facility] LABORATORY Hemoglobin 9.2 (L) 13.7 - [facility] 16.5 gm/dL [facility] LABORATORY Hematocrit 29.6 (L) 40.5 - [facility] 48.5 % [facility] LABORATORY MCV 92.2 82.9 - [facility] 93.1 [facility] LABORATORY MCH 28.7 27.5 - [place] 32.1 pg [facility] LABORATORY MCHC 31.1 (L) 32.0 - [facility] 35.7 gm/dL [facility] LABORATORY Platelets 263 145 - 357 [facility] x10(3)/[facility] LABORATORY RDWSD 54.8 (H) 36.0 - [facility] 45.0 [facility] LABORATORY RDWCV 16.4 (H) 11.4 - [facility] 13.8 % [facility] LABORATORY MPV 9.2 7.6 - 12.9 [facility] LABORATORY nRBC % Auto 0.0 % [facility] LABORATORY nRBC Abs Auto 0.000 0.000 - [facility] 0.000 [facility] x10(3)/[facility] LABORATORY Specimen Anatomical Collection Method Collection Time Receive d Time (Source) Location / / Volume Laterality Blood specimen 08/13/2017 5:33 AM 018 6:04 (specimen) EST AM EST Resulting Agency Comment Spec In Lab Yonathan Smith MD HEMATOLOGY ORDERABLES Performing Organization Address City/State/ZIP Code Phon e Number [place] [id number] (ABNORMAL) Prothrombin Time (08/13/2017 [...] Organization Address City/State/[place] [address] (ABNORMAL) Basic Metabolic Panel (non-fasting) (08/13/2017 5:33 AM EST) athologist Signature Glucose Lvl 126 65 - 199 [facility] mg/dL [facility] LABORATORY Comment: Diabetes: [...] Calcium 7.9 (L) 8.5 - 10.5 mg/dL [facility] LABORATORY Estimated GFR >60 >=60 [facility] LABORATORY Comment: The reported eGFR should be multiplied b y 1.2 for patients. The MDRD is not an appropriate measure o f renal function for patients with body mass extremes or in patients with acute kidney failure. [email or web address] [email or web address] [employer]/DHMCnkf Specimen Anatomical Collection Method Collection Time Receive d Time (Source) Location / / Volume Laterality Blood specimen 08/13/2017 5:33 AM 018 6:04 (specimen) EST AM EST Resulting Agency Comment Spec In Lab Yonathan Smith MD CHEMISTRY ORDERABLES Performing Organization Address City/[facility] Phon e Number [address] POCT Glucose (08/13/2017 4:29 AM EST) athologist Signature POC Glucose 111 65 - 199 [facility]dL [facility] LABORATORY Comment: Supplemental ranges: <140 mg/dL before meals <180 mg/dL all other times of the day Specimen Anatomical Collection Method Collection Time Receive d Time (Source) Location / / Volume Laterality Blood specimen 08/13/2017 4:29 AM 018 4:29 (specimen) EST AM EST Yonathan Smith MD POINT OF CARE TEST ORDERABLE S Performing Organization Address City/[facility]/ZIP Code Phon e Number [address] POCT Glucose (08/12/2017 11:28 PM EST) athologist Signature POC Glucose 164 65 - 199 [facility]/dL [facility] LABORATORY Comment: Supplemental ranges: <140 mg/dL before meals <180 mg/dL all other times of the day Specimen Anatomical Collection Method Collection Time Receive d Time (Source) Location / / Volume Laterality Blood specimen 08/12/2017 11:28 8 (specimen) PM EST 11:28 PM EST Yonathan Smith MD POINT OF CARE TEST ORDERABLE S Performing Organization Address City/[facility]/[place] [address] (ABNORMAL) POCT Glucose (08/12/2017 7:40 PM EST) athologist Signature POC Glucose 209 (H) 65 - 199 [facility] mg/dL [facility] LABORATORY Comment: Supplemental ranges: <140 mg/dL before meals <180 mg/dL all other times of the day Specimen Anatomical Collection Method Collection Time Receive d Time (Source) Location / / Volume Laterality Blood specimen 08/12/2017 7:40 PM 018 7:40 (specimen) EST PM EST Yonathan Smith MD POINT OF CARE TEST ORDERABLE S Performing Organization Address City/State/ZIP Code Phon e Number [address] POCT Glucose (08/12/2017 4:24 PM EST) athologist Signature POC Glucose 161 65 - 199 [facility] mg/dL [facility] LABORATORY Comment: Supplemental ranges: <140 mg/dL before meals <180 mg/dL all other times of the day Specimen Anatomical Collection Method Collection Time Receive d Time (Source) Location / / Volume Laterality Blood specimen 08/12/2017 4:24 PM 018 4:24 (specimen) EST PM EST Yonathan Smith MD POINT OF CARE TEST ORDERABLE S Performing Organization Address City/State/[place] [address] POCT Glucose (08/12/2017 12:00 PM EST) athologist Signature POC Glucose 167 65 - 199 [place] mg/dL [facility] LABORATORY Comment: Supplemental ranges: <140 mg/dL before meals <180 mg/dL all other times of the day Specimen Anatomical Collection Method Collection Time Receive d Time (Source) Location / / Volume Laterality Blood specimen 08/12/2017 12:00 8 (specimen) PM EST 12:00 PM EST Yonathan Smith MD POINT OF CARE TEST ORDERABLE S Performing Organization Address City/State/[place] [address] POCT Glucose (08/12/2017 7:25 AM EST) P athologist Signature POC Glucose 152 65 - 199 [facility] mg/dL [facility] LABORATORY Comment: Supplemental ranges: <140 mg/dL before meals <180 mg/dL all other times of the day Specimen Anatomical Collection Method Collection Time Receive d Time (Source) Location / / Volume Laterality Blood specimen 08/12/2017 7:25 AM 018 7:25 (specimen) EST AM EST Yonathan Smith MD POINT OF CARE TEST ORDERABLE S Performing Organization Address City/State/[place] [address] (ABNORMAL) Differential, Automated (08/12/2017 6:29 AM EST) Patholo gist Method Time Signature Neutrophils % 78.7 % [facility] LABORATORY Neutr Abs (ANC) 7.94 (H) 1.70 - [facility] 6.10 [facility] x10(3)/[facility] LABORATORY Lymphocytes % 8.8 % [facility] LABORATORY Lymphocytes Abs 0.9 0.9 - 3.2 [facility] x10(3)/[facility] LABORATORY Monocytes % 7.8 % [facility] LABORATORY Monocyte Abs 0.8 0.3 - 0.9 [facility] x10(3)/[facility] LABORATORY Eosinophils % 3.9 % [facility] LABORATORY Eosinophils Abs 0.4 0.0 - 0.4 [facility] x10(3)/[facility] LABORATORY Basophils % 0.3 % [facility] LABORATORY Basophils Abs 0.0 0.0 - 0.1 [facility] x10(3)/[facility] LABORATORY Immature Gran % 0.50 % [...] Organization Address City/State/[place] [address] (ABNORMAL) Hemogram (08/12/2017 6:29 AM EST) Analysis Performed At Patho logist Time Signature WBC 10.1 (H) 4.0 - 9.5 [facility] x10(3[facility] LABORATORY RBC 3.02 (L) 4.58 - [facility] 5.54 [facility] x10(6)/[facility] LABORATORY Hemoglobin 8.7 (L) 13.7 - [facility] 16.5 gm/dL [facility] LABORATORY Hematocrit 28.1 (L) 40.5 - [facility] 48.5 % [facility] LABORATORY MCV 93.0 82.9 - [facility] 93.1 [facility] LABORATORY MCH 28.8 27.5 - [facility] 32.1 pg [facility] LABORATORY MCHC 31.0 (L) 32.0 - [facility] 35.7 gm/dL [facility] LABORATORY Platelets 223 145 - 357 [facility] x10(3)/[facility] LABORATORY RDWSD 56.1 (H) 36.0 - [facility] 45.0 [facility] LABORATORY RDWCV 16.4 (H) 11.4 - [facility] 13.8 % [facility] LABORATORY MPV 9.0 7.6 - 12.9 [facility] LABORATORY nRBC % Auto 0.0 % [facility] LABORATORY nRBC Abs Auto 0.000 0.000 - [place] 0.000 [facility] x10(3)/[facility] LABORATORY Specimen Anatomical Collection Method Collection Time Receive d Time (Source) Location / / Volume Laterality Blood specimen 08/12/2017 6:29 AM 018 6:38 (specimen) EST AM EST Resulting Agency Comment Spec In Lab Yonathan Smith MD HEMATOLOGY ORDERABLES Performing Organization Address City/[facility]/[place] [address] (ABNORMAL) Prothrombin Time (08/12/2017 [...] Organization Address City/State/[place] [address] (ABNORMAL) Basic Metabolic Panel (non-fasting) (08/12/2017 6:29 AM EST) athologist Signature Glucose Lvl 151 65 - 199 [facility] mg/dL [facility] LABORATORY Comment: Diabetes: [...] Calcium 7.9 (L) 8.5 - 10.5 mg/dL [facility] LABORATORY Estimated GFR >60 >=60 [facility] LABORATORY Comment: The reported eGFR should be multiplied b y 1.2 for patients. The MDRD is not an appropriate measure o f renal function for patients with body mass extremes or in patients with acute kidney failure. http://[employer]/DHnkdep http://[employer]/DHMCnkf Specimen Anatomical Collection Method Collection Time Receive d Time (Source) Location / / Volume Laterality Blood specimen 08/12/2017 6:29 AM 018 6:38 (specimen) EST AM EST Resulting Agency Comment Spec In Lab Yonathan Smith MD CHEMISTRY ORDERABLES Performing Organization Address City/[facility]/ZIP Code Phon e Number [address] POCT Glucose (08/12/2017 4:08 AM EST) athologist Signature POC Glucose 181 65 - 199 [facility] mg/dL [facility] LABORATORY Comment: Supplemental ranges: <140 mg/dL before meals <180 mg/dL all other times of the day Specimen Anatomical Collection Method Collection Time Receive d Time (Source) Location / / Volume Laterality Blood specimen 08/12/2017 4:08 AM 018 4:08 (specimen) EST AM EST Yonathan Smith MD POINT OF CARE TEST ORDERABLE S Performing Organization Address City/[facility]/[place] [address] (ABNORMAL) POCT Glucose (08/12/2017 12:17 AM EST) athologist Signature POC Glucose 221 (H) 65 - 199 [facility] mg/dL [facility] LABORATORY Comment: Supplemental ranges: <140 mg/dL before meals <180 mg/dL all other times of the day Specimen Anatomical Collection Method Collection Time Receive d Time (Source) Location / / Volume Laterality Blood specimen 08/12/2017 12:17 8 (specimen) AM EST 12:17 AM EST Yonathan Smith MD POINT OF CARE TEST ORDERABLE S Performing Organization Address City/State/[place] [address] (ABNORMAL) POCT Glucose (08/11/2017 8:52 PM EST) athologist Signature POC Glucose 221 (H) 65 - 199 [place] mg/dL [facility] LABORATORY Comment: Supplemental ranges: <140 mg/dL before meals <180 mg/dL all other times of the day Specimen Anatomical Collection Method Collection Time Receive d Time (Source) Location / / Volume Laterality Blood specimen 08/11/2017 8:52 PM 018 8:52 (specimen) EST PM EST Yonathan Smith MD POINT OF CARE TEST ORDERABLE S Performing Organization Address City/[facility]/[place] [address] POCT Glucose (08/11/2017 5:59 PM EST) athologist Signature POC Glucose 169 65 - 199 [facility] mg/dL [facility] LABORATORY Comment: Supplemental ranges: <140 mg/dL before meals <180 mg/dL all other times of the day Specimen Anatomical Collection Method Collection Time Receive d Time (Source) Location / / Volume Laterality Blood specimen 08/11/2017 5:59 PM 018 5:59 (specimen) EST PM EST Yonathan Smith MD POINT OF CARE TEST ORDERABLE S Performing Organization Address City/State/[place] [address] (ABNORMAL) POCT Glucose (08/11/2017 4:08 PM EST) athologist Signature POC Glucose 240 (H) 65 - 199 [place] [facility] mg/dL [facility] LABORATORY Comment: Supplemental ranges: <140 mg/dL before meals <180 mg/dL all other times of the day Specimen Anatomical Collection Method Collection Time Receive d Time (Source) Location / / Volume Laterality Blood specimen 08/11/2017 4:08 PM 018 4:08 (specimen) EST PM EST Yonathan Smith MD POINT OF CARE TEST ORDERABLE S Performing Organization Address City/[facility]/ZIP Code Phon e Number [address] POCT Glucose (08/11/2017 12:04 PM EST) athologist Signature POC Glucose 182 65 - 199 [facility] mg/dL [facility] LABOR[facility]ORY Comment: Supplemental ranges: <140 mg/dL before meals <180 mg/dL all other times of the day Specimen Anatomical Collection Method Collection Time Receive d Time (Source) Location / / Volume Laterality Blood specimen 08/11/2017 12:04 8 (specimen) PM EST 12:04 PM EST Yonathan Smith MD POINT OF CARE TEST ORDERABLE S Performing Organization Address City/[facility]/ZIP Code Phon e Number [address] POCT Glucose (08/11/2017 7:31 AM EST) athologist Signature POC Glucose 156 65 - 199 [facility] mg/dL [facility] LABORATORY Comment: Supplemental ranges: <140 mg/dL before meals <180 mg/dL all other times of the day Specimen Anatomical Collection Method Collection Time Receive d Time (Source) Location / / Volume Laterality Blood specimen 08/11/2017 7:31 AM 018 7:31 (specimen) EST AM EST Yonathan Smith MD POINT OF CARE TEST ORDERABLE S Performing Organization Address City/[facility]/ZIP Code Phon e Number [address] (ABNORMAL) Differential, Automated (08/11/2017 6:16 AM EST) [facility] Method Time Signature Neutrophils % 83.7 % [facility] LABORATORY Neutr Abs (ANC) 10.76 (H) 1.70 - [facility] 6.10 [facility] x10(3)/[facility] L LABORATORY Lymphocytes % 6.0 % [facility] LABORATORY Lymphocytes Abs 0.8 (L) 0.9 - 3.2 [facility] x10(3)/[facility] LABORATORY Monocytes % 7.5 % [facility] LABORATORY Monocyte Abs 1.0 (H) 0.3 - 0.9 [facility] x10(3)/[facility] LABORATORY Eosinophils % 2.0 % [facility] LABORATORY Eosinophils Abs 0.3 0.0 - 0.4 [facility] x10(3)/[facility] LABORATORY Basophils % 0.3 % [facility] LABORATORY Basophils Abs 0.0 0.0 - 0.1 [facility] x10(3)/[facility] LABORATORY Immature Gran % 0.50 % [...] Gran Abs 0.06 (H) 0.00 - 0.04 x10(3)/[facility] LABORATORY Specimen Anatomical Collection Method Collection Time Receive d Time (Source) Location / / Volume Laterality Blood specimen 08/11/2017 6:16 AM 018 6:24 (specimen) EST AM EST Resulting Agency Comment Spec In Lab Yonathan Smith MD HEMATOLOGY ORDERABLES Performing Organization Address City/State/[place] [address] (ABNORMAL) Hemogram (08/11/2017 6:16 AM EST) Analysis Performed At Patho logist Time Signature WBC 12.9 (H) 4.0 - 9.5 [facility] x10(3)/[facility] LABORATORY RBC 3.28 (L) 4.58 - [facility] 5.54 [facility] x10(6)/[facility] LABORATORY Hemoglobin 9.5 (L) 13.7 - [facility] 16.5 gm/dL [facility] LABORATORY Hematocrit 29.8 (L) 40.5 - [place] 48.5 % [facility] LABORATORY MCV 90.9 82.9 - [facility] 93.1 [facility] LABORATORY MCH 29.0 27.5 - [facility] 32.1 pg [facility] LABORATORY MCHC 31.9 (L) 32.0 - [place] 35.7 gm/dL [facility] LABORATORY Platelets 236 145 - 357 [facility] x10(3)/[facility] LABORATORY RDWSD 53.5 (H) 36.0 - [place] 45.0 [facility] LABORATORY RDWCV 16.3 (H) 11.4 - [facility] 13.8 % [facility] LABORATORY MPV 8.8 7.6 - 12.9 [facility] LABORATORY nRBC % Auto 0.0 % [facility] LABORATORY nRBC Abs Auto 0.000 0.000 - [place] 0.000 [facility] x10(3)/[facility] LABORATORY Specimen Anatomical Collection Method Collection Time Receive d Time (Source) Location / / Volume Laterality Blood specimen 08/11/2017 6:16 AM 018 6:24 (specimen) EST AM EST Resulting Agency Comment Spec In Lab Yonathan Smith MD HEMATOLOGY ORDERABLES Performing Organization Address City/State/[place] [address] (ABNORMAL) Prothrombin Time (08/11/2017 [...] Organization Address City/State/[place] [address] Basic Metabolic Panel (non-fasting) (08/11/2017 6:16 AM EST) athologist Signature Glucose Lvl 139 65 - 199 [facility] mg/dL [facility] LABORATORY Comment: Diabetes: [...] or in patients with acute kidney failure. [email or web address]/DHnkdep http://[employer]/DHMCnkf Specimen Anatomical Collection Method Collection Time Receive d Time (Source) Location / / Volume Laterality Blood specimen 08/11/2017 6:16 AM 018 6:24 (specimen) EST AM EST Resulting Agency Comment Spec In Lab Yonathan Smith MD CHEMISTRY ORDERABLES Performing Organization Address City/State/ZIP Code Phon e Number [address] POCT Glucose (08/11/2017 4:07 AM EST) athologist Signature POC Glucose 162 65 - 199 [place] [facility] mg/dL [facility] LABORATORY Comment: Supplemental ranges: <140 mg/dL before meals <180 mg/dL all other times of the day Specimen Anatomical Collection Method Collection Time Receive d Time (Source) Location / / Volume Laterality Blood specimen 08/11/2017 4:07 AM 018 4:07 (specimen) EST AM EST Yonathan Smith MD POINT OF CARE TEST ORDERABLE S Performing Organization Address City/[facility]/ZIP Code Phon e Number [address] POCT Glucose (08/10/2017 11:59 PM EST) athologist Signature POC Glucose 166 65 - 199 [place] mg/dL [facility] LABORATORY Comment: Supplemental ranges: <140 mg/dL before meals <180 mg/dL all other times of the day Specimen Anatomical Collection Method Collection Time Receive d Time (Source) Location / / Volume Laterality Blood specimen 08/10/2017 11:59 8 (specimen) PM EST 11:59 PM EST Yonathan Smith MD POINT OF CARE TEST ORDERABLE S Performing Organization Address City/State/ZIP Code Phon e Number [address] POCT Glucose (08/10/2017 8:12 PM EST) athologist Signature POC Glucose 156 65 - 199 [place] mg/dL [facility] LABORATORY Comment: Supplemental ranges: <140 mg/dL before meals <180 mg/dL all other times of the day Specimen Anatomical Collection Method Collection Time Receive d Time (Source) Location / / Volume Laterality Blood specimen 08/10/2017 8:12 PM 018 8:12 (specimen) EST PM EST Yonathan Smith MD POINT OF CARE TEST ORDERABLE S Performing Organization Address City/State/[place] [address] (ABNORMAL) POCT Glucose (08/10/2017 4:42 PM EST) P athologist Signature POC Glucose 211 (H) 65 - 199 [facility] mg/dL [facility] LABORATORY Comment: Supplemental ranges: <140 mg/dL before meals <180 mg/dL all other times of the day Specimen Anatomical Collection Method Collection Time Receive d Time (Source) Location / / Volume Laterality Blood specimen 08/10/2017 4:42 PM 018 4:42 (specimen) EST PM EST Yonathan Smith MD POINT OF CARE TEST ORDERABLE S Performing Organization Address City/State/ZIP Code Phon e Number [address] (ABNORMAL) Differential, Automated (08/10/2017 2:30 PM EST) Patholo gist Method Time Signature Neutrophils % 87.6 % [facility] LABORATORY Neutr Abs (ANC) 9.90 (H) 1.70 - [facility] 6.10 [facility] x10(3)/[facility] L LABORATORY Lymphocytes % 4.3 % [facility] LABORATORY Lymphocytes Abs 0.5 (L) 0.9 - 3.2 [facility] x10(3)/[facility] LABORATORY Monocytes % 6.0 % [facility] LABORATORY Monocyte Abs 0.7 0.3 - 0.9 [facility] x10(3)/[facility] LABORATORY Eosinophils % 1.1 % [facility] LABORATORY Eosinophils Abs 0.1 0.0 - 0.4 [facility] x10(3)/[facility] LABORATORY Basophils % 0.4 % [facility] LABORATORY Basophils Abs 0.0 0.0 - 0.1 [facility] x10(3)/[facility] LABORATORY Immature Gran % 0.60 % [...] Organization Address City/State/[place] [address] (ABNORMAL) Hemogram (08/10/2017 2:30 PM EST) Analysis Performed At Patho logist Time Signature WBC 11.3 (H) 4.0 - 9.5 [facility] x10(3)/[facility] LABORATORY RBC 3.13 (L) 4.58 - [facility] 5.54 [facility] x10(6)/[facility] LABORATORY Hemoglobin 8.9 (L) 13.7 - [facility] 16.5 gm/dL [facility] LABORATORY Hematocrit 28.4 (L) 40.5 - [facility] 48.5 % [facility] LABORATORY MCV 90.7 82.9 - [facility] 93.1 [facility] LABORATORY MCH 28.4 27.5 - [facility] 32.1 pg [facility] LABORATORY MCHC 31.3 (L) 32.0 - [facility] 35.7 gm/dL [facility] LABORATORY Platelets 213 145 - 357 [facility] x10(3)/[facility] LABORATORY RDWSD 53.7 (H) 36.0 - [facility] 45.0 [facility] LABORATORY RDWCV 16.4 (H) 11.4 - [facility] 13.8 % [facility] LABORATORY MPV 8.9 7.6 - 12.9 [facility] LABORATORY nRBC % Auto 0.0 % [facility] LABORATORY nRBC Abs Auto 0.000 0.000 - [facility] 0.000 [facility] x10(3)/[facility] LABORATORY Specimen Anatomical Collection Method Collection Time Receive d Time (Source) Location / / Volume Laterality Blood specimen 08/10/2017 2:30 PM 018 2:48 (specimen) EST PM EST Resulting Agency Comment Spec In Lab Yonathan Smith MD HEMATOLOGY ORDERABLES Performing Organization Address City/[facility]/[place] [address] (ABNORMAL) POCT Glucose (08/10/2017 1:50 PM EST) athologist Signature POC Glucose 243 (H) 65 - 199 [facility] mg/dL [facility] LABORATORY Comment: Supplemental ranges: <140 mg/dL before meals <180 mg/dL all other times of the day Specimen Anatomical Collection Method Collection Time Receive d Time (Source) Location / / Volume Laterality Blood specimen 08/10/2017 1:50 PM 018 1:50 (specimen) EST PM EST Yonathan Smith MD POINT OF CARE TEST ORDERABLE S Performing Organization Address City/[facility]/[place] [address] POCT Glucose (08/10/2017 11:21 AM EST) athologist Signature POC Glucose 156 65 - 199 [facility] mg/dL [facility] LABORATORY Comment: Supplemental ranges: <140 mg/dL before meals <180 mg/dL all other times of the day Specimen Anatomical Collection Method Collection Time Receive d Time (Source) Location / / Volume Laterality Blood specimen 08/10/2017 11:21 8 (specimen) AM EST 11:21 AM EST Yonathan Smith MD POINT OF CARE TEST ORDERABLE S Performing Organization Address City/[facility]/ZIP Code Phon e Number [address] (ABNORMAL) Differential, Automated (08/10/2017 10:28 AM EST) [facility] Method Time Signature Neutrophils % 85.3 % [facility] LABORATORY Neutr Abs (ANC) 9.43 (H) 1.70 - [facility] 6.10 [facility] x10(3)/[facility] L LABORATORY Lymphocytes % 5.5 % [facility] LABORATORY Lymphocytes Abs 0.6 (L) 0.9 - 3.2 [facility] x10(3)/[facility] LABORATORY Monocytes % 5.9 % [facility] LABORATORY Monocyte Abs 0.6 0.3 - 0.9 [facility] x10(3)/[facility] LABORATORY Eosinophils % 2.1 % [facility] LABORATORY Eosinophils Abs 0.2 0.0 - 0.4 [facility] x10(3)/[facility] LABORATORY Basophils % 0.4 % [facility] LABORATORY Basophils Abs 0.0 0.0 - 0.1 [facility] x10(3)/[facility] LABORATORY Immature Gran % 0.80 % [...] Organization Address City/State/[place] [address] (ABNORMAL) Hemogram (08/10/2017 10:28 AM EST) Analysis Performed At Patho logist Time Signature WBC 11.0 (H) 4.0 - 9.5 [facility] x10(3)/St. [facility] LABORATORY RBC 3.02 (L) 4.58 - [facility] 5.54 [facility] x10(6)/[facility] LABORATORY Hemoglobin 8.8 (L) 13.7 - [place] 16.5 gm/dL [facility] LABORATORY Hematocrit 28.1 (L) 40.5 - [place] 48.5 % [facility] LABORATORY MCV 93.0 82.9 - [place] 93.1 [facility] LABORATORY MCH 29.1 27.5 - [place] 32.1 pg [facility] LABORATORY MCHC 31.3 (L) 32.0 - [place] 35.7 gm/dL [facility] LABORATORY Platelets 207 145 - 357 [place] x10(3)/[facility] LABORATORY RDWSD 55.3 (H) 36.0 - [place] 45.0 [facility] LABORATORY RDWCV 16.4 (H) 11.4 - [place] 13.8 % [facility] LABORATORY MPV 9.0 7.6 - 12.9 [place] [facility] LABORATORY nRBC % Auto 0.0 % [facility] LABORATORY nRBC Abs Auto 0.000 0.000 - [place] 0.000 [facility] x10(3)/[facility] LABORATORY Specimen Anatomical Collection Method Collection Time Receive d Time (Source) Location / / Volume Laterality Blood specimen 08/10/2017 10:28 8 (specimen) AM EST 10:35 AM EST Resulting Agency Comment Spec In Lab Yonathan Smith MD HEMATOLOGY ORDERABLES Performing Organization Address City/State/[place] [address] VS Angiogram/intervention (vascular) (08/10/2017 [...] 2.5x80 5. Completion RLE angiogram 6. L LINE CLOSER angiogram 7. 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 L LINE CLOSER access in the distal L LINE CLOSER. - Closure device: Mynx Technical Procedure: ?The [...] for a 45cm 5F Destination. V18 and [place] a nd QuickCross catheters were used to [...] bifurcation. Access appeared in the distal R LINE CLOSER. Closure and sheath removal was performed with [...] 2.5x80 5. Completion RLE angiogram 6. L LINE CLOSER angiogram 7. 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 L LINE CLOSER access in the distal L LINE CLOSER. - Closure device: Mynx Technical Procedure: The [...] for a 45cm 5F Destination. V18 and [place] a nd QuickCross catheters were used to [...] bifurcation. Access appeared in the distal R LINE CLOSER. Closure and sheath removal was performed with [...] Neutr Abs (ANC) 9.01 (H) 1.70 - [facility] 6.10 [facility] x10(3)/[facility] L LABORATORY Lymphocytes % 8.8 % [facility] LABORATORY Lymphocytes Abs 1.0 0.9 - 3.2 [facility] x10(3)/[facility] LABORATORY Monocytes % 8.3 % [facility] LABORATORY Monocyte Abs 0.9 0.3 - 0.9 [facility] x10(3)/[facility] LABORATORY Eosinophils % 2.0 % [facility] LABORATORY Eosinophils Abs 0.2 0.0 - 0.4 [facility] x10(3)/[facility] LABORATORY Basophils % 0.4 % [facility] LABORATORY Basophils Abs 0.0 0.0 - 0.1 [facility] R[facility] x10(3)/[facility] LABORATORY Immature Gran % 0.40 % [...] Organization Address City/State/[place] [address] (ABNORMAL) Hemogram (08/10/2017 5:50 AM EST) Analysis Performed At Patho logist Time Signature WBC 11.3 (H) 4.0 - 9.5 [facility] x10(3)/[facility] LABORATORY RBC 3.15 (L) 4.58 - [facility] 5.54 [facility] x10(6)/[facility] LABORATORY Hemoglobin 8.9 (L) 13.7 - [facility] 16.5 gm/dL [facility] LABORATORY Hematocrit 29.0 (L) 40.5 - [facility] RYAN 48.5 % [facility] LABORATORY MCV 92.1 82.9 - [facility] 93.1 [facility] LABORATORY MCH 28.3 27.5 - [facility] RYAN 32.1 pg [facility] LABORATORY MCHC 30.7 (L) 32.0 - [facility] RYAN 35.7 gm/dL [facility] LABORATORY Platelets 231 145 - 357 [facility] x10(3)/[facility] LABORATORY RDWSD 53.9 (H) 36.0 - [place] 45.0 [facility] LABORATORY RDWCV 16.2 (H) 11.4 - [facility] 13.8 % [facility] LABORATORY MPV 8.7 7.6 - 12.9 [facility] LABORATORY nRBC % Auto 0.0 % [facility] LABORATORY nRBC Abs Auto 0.000 0.000 - [facility] 0.000 [facility] x10(3)/[facility] LABORATORY Specimen Anatomical Collection Method Collection Time Receive d Time (Source) Location / / Volume Laterality Blood specimen 08/10/2017 5:50 AM 018 5:59 (specimen) EST AM EST Resulting Agency Comment Spec In Lab Yonathan Smith MD HEMATOLOGY ORDERABLES Performing Organization Address City/State/[place] [address] (ABNORMAL) Basic Metabolic Panel (non-fasting) (08/10/2017 5:50 AM EST) P athologist Signature Glucose Lvl 135 65 - 199 [facility] mg/dL [facility] LABORATORY Comment: Diabetes: [...] or in patients with acute kidney failure. [email or web address] [email or web address] Specimen Anatomical Collection Method Collection Time Receive d Time (Source) Location / / Volume Laterality Blood specimen 08/10/2017 5:50 AM 018 5:59 (specimen) EST AM EST Resulting Agency Comment Spec In Lab Yonathan Smith MD CHEMISTRY ORDERABLES Performing Organization Address City/[facility] [place] [address] (ABNORMAL) Prothrombin Time (08/10/2017 [...] MD HEMATOLOGY ORDERABLES Performing Organization Address City/[facility] [address] (ABNORMAL) POCT Glucose (08/10/2017 4:01 AM EST) athologist Signature POC Glucose 206 (H) 65 - 199 [facility] mg/dL [facility] LABORATORY Comment: Supplemental ranges: <140 mg/dL before meals <180 mg/dL all other times of the day Specimen Anatomical Collection Method Collection Time Receive d Time (Source) Location / / Volume Laterality Blood specimen 08/10/2017 4:01 AM 018 4:01 (specimen) EST AM EST Yonathan Smith MD POINT OF CARE TEST ORDERABLE S Performing Organization Address City/State/[place] [address] POCT Glucose (08/10/2017 2:01 AM EST) athologist Signature POC Glucose 188 65 - 199 [place] mg/dL [facility] LABORATORY Comment: Supplemental ranges: <140 mg/dL before meals <180 mg/dL all other times of the day Specimen Anatomical Collection Method Collection Time Receive d Time (Source) Location / / Volume Laterality Blood specimen 08/10/2017 2:01 AM 018 2:01 (specimen) EST AM EST Yonathan Smith MD POINT OF CARE TEST ORDERABLE S Performing Organization Address City/[facility]/[place] [address] (ABNORMAL) POCT Glucose (08/09/2017 11:42 PM EST) athologist Signature POC Glucose 283 (H) 65 - 199 [place] mg/dL [facility] LABORATORY Comment: Supplemental ranges: <140 mg/dL before meals <180 mg/dL all other times of the day Specimen Anatomical Collection Method Collection Time Receive d Time (Source) Location / / Volume Laterality Blood specimen 08/09/2017 11:42 8 (specimen) PM EST 11:42 PM EST Yonathna Smith MD POINT OF CARE TEST ORDERABLE S Performing Organization Address City/State/[place] [address] POCT Glucose (08/09/2017 8:55 PM EST) athologist Signature POC Glucose 182 65 - 199 [place] mg/dL [facility] LABORATORY Comment: Supplemental ranges: <140 mg/dL before meals <180 mg/dL all other times of the day Specimen Anatomical Collection Method Collection Time Receive d Time (Source) Location / / Volume Laterality Blood specimen 08/09/2017 8:55 PM 018 8:55 (specimen) EST PM EST Yonathan Smith MD POINT OF CARE TEST ORDERABLE S Performing Organization Address City/[facility]/[place] [address] (ABNORMAL) APTT (08/09/2017 6:42 PM EST) athologist Signature PTT 90 (H) 25 - 35 sec [facility] LABORATORY Comment: The recommended therapeutic range for fu ll dose, unfractionated heparin at [facility] is 80 ? 114 seconds. [...] MD HEMATOLOGY ORDERABLES Performing Organization Address City/[facility]/[place] [address] POCT Glucose (08/09/2017 4:41 PM EST) athologist Signature POC Glucose 195 65 - 199 [facility] mg/dL [facility] LABORATORY Comment: Supplemental ranges: <140 mg/dL before meals <180 mg/dL all other times of the day Specimen Anatomical Collection Method Collection Time Receive d Time (Source) Location / / Volume Laterality Blood specimen 08/09/2017 4:41 PM 018 4:41 (specimen) EST PM EST Yonathan Smith MD POINT OF CARE TEST ORDERABLE S Performing Organization Address City/[facility]/[place] [address] POCT Glucose (08/09/2017 12:29 PM EST) athologist Signature POC Glucose 140 65 - 199 [facility] mg/dL [facility] LABORATORY Comment: Supplemental ranges: <140 mg/dL before meals <180 mg/dL all other times of the day Specimen Anatomical Collection Method Collection Time Receive d Time (Source) Location / / Volume Laterality Blood specimen 08/09/2017 12:29 8 (specimen) PM EST 12:29 PM EST Yonathan Smith MD POINT OF CARE TEST ORDERABLE S Performing Organization Address City/[facility]/ZIP Code Phon e Number [address] POCT Glucose (08/09/2017 9:59 AM EST) P athologist Signature POC Glucose 135 65 - 199 [facility] mg/dL [facility] LABORATORY Comment: Supplemental ranges: <140 mg/dL before meals <180 mg/dL all other times of the day Specimen Anatomical Collection Method Collection Time Receive d Time (Source) Location / / Volume Laterality Blood specimen 08/09/2017 9:59 AM 018 9:59 (specimen) EST AM EST Yonathan Smith MD POINT OF CARE TEST ORDERABLE S Performing Organization Address City/[facility]/ZIP Code Phon e Number [address] Specimen to Pathology (08/09/2017 [...] MD PATHOLOGY/CYTOLOGY ORDERABLE S Performing Organization Address City/[facility]/[place] [address] Surgical Pathology Report (08/09/2017 8:40 AM EST) Component Value Ref Test Analysis Performed At Patholo gist Range Method Time Signature Surgical [id number] ? Location: [facility]; [facility]; [facility] The signing pathologist has (i) examined [...] Henrique Flower Verified: ??08/13/2017 ?Pathologist Performed at: ??-[facility] Dept. of Pathology, [place], [place] CLINICAL INFORMATION Specimen Submitted: A - [...] Organization Address City/State/[place] [address] [facility] [address] Anaerobic Culture (08/09/2017 8:30 AM EST) [facility] [employer] Method Time Signature Anaerobic No anaerobic [facility] Culture organisms [facility] LABORATORY Specimen Anatomical Collection Method Collection [...] Organization Address City/State/[place] [address] (ABNORMAL) Abscess/Wound Aspirate Culture (08/09/2017 8:30 AM EST) [facility] Method Time Signature Abscess/Wound Moderate mixed [facility] Aspirate bacterial [place] Culture morphotypes [facility] normal LABORATORY cutaneous leroy (A) Gram Stain Rare White Blood Cells [place] Few Gram Positive Cocci in pairs [place] () [facility] LABORATORY Organism Gram Positive [place] Cocci in pairs [place] () [facility] LABORATORY Specimen Anatomical Collection Method [...] GENERAL ORDER ROBSON Performing Organization Address City/[facility]/ZIP Code Phon e Number [place] [id number]OS[address] POCT Glucose (08/09/2017 4:28 AM EST) P athologist Signature POC Glucose 128 65 - 199 [facility] mg/dL [facility] LABORATORY Comment: Supplemental ranges: <140 mg/dL before meals <180 mg/dL all other times of the day Specimen Anatomical Collection Method Collection Time Receive d Time (Source) Location / / Volume Laterality Blood specimen 08/09/2017 4:28 AM 018 4:28 (specimen) EST AM EST Yonathan Smith MD POINT OF CARE TEST ORDERABLE S Performing Organization Address City/State/ZIP Code Phon e Number [address] ABORH Recheck Status (08/09/2017 [...] BLOOD BANK ORDERABLES Performing Organization Address City/[facility]/[place] [address] Antibody screen (08/09/2017 1:10 AM EST) [facility] Method Time Signature Ab Screen Negative [facility] LABORATORY Expires at 08/12/2017 [facility] [id number] on: [facility] LABORATORY Specimen Anatomical Collection Method Collection Time Receive d Time (Source) Location / / Volume Laterality Blood specimen 08/09/2017 1:10 AM 018 1:35 (specimen) EST AM EST Resulting Agency Comment Spec In Lab Yonathan Smith MD BLOOD BANK ORDERABLES Performing Organization Address City/[facility]/[place] [address] ABO/Rh Typing (08/09/2017 1:10 AM EST) P athologist Signature ABORh Type O Pos [facility] LABORATORY Specimen Anatomical Collection Method Collection Time Receive d Time (Source) Location / / Volume Laterality Blood specimen 08/09/2017 1:10 AM 018 1:35 (specimen) EST AM EST Resulting Agency Comment Spec In Lab Yonathan Smith MD BLOOD BANK ORDERABLES Performing Organization Address City/[facility]/[place] [address] (ABNORMAL) APTT (08/09/2017 1:10 AM EST) P athologist Signature PTT 86 (H) 25 - 35 sec [facility] LABORATORY Comment: The recommended therapeutic range for fu ll dose, unfractionated heparin at [facility] is 80 ? 114 seconds. [...] Organization Address City/State/[place] [address] (ABNORMAL) Differential, Automated (08/09/2017 1:10 AM EST) [facility] gist Method Time Signature Neutrophils % 76.2 % [facility] LABORATORY Neutr Abs (ANC) 8.59 (H) 1.70 - [facility] 6.10 [facility] x10(3)/[facility] LABORATORY Lymphocytes % 11.0 % [facility] LABORATORY Lymphocytes Abs 1.2 0.9 - 3.2 [facility] x10(3)/[facility] LABORATORY Monocytes % 8.4 % [facility] LABORATORY Monocyte Abs 1.0 (H) 0.3 - 0.9 [facility] x10(3)/[facility] LABORATORY Eosinophils % 3.5 % [facility] LABORATORY Eosinophils Abs 0.4 0.0 - 0.4 [facility] x10(3)/[facility] LABORATORY Basophils % 0.5 % [facility] LABORATORY Basophils Abs 0.1 0.0 - 0.1 [facility] x10(3)/[facility] LABORATORY Immature Gran % 0.40 % [...] Organization Address City/State/[place] [address] (ABNORMAL) Hemogram (08/09/2017 1:10 AM EST) Analysis Performed At Patho logist Time Signature WBC 11.3 (H) 4.0 - 9.5 [facility] x10(3)/[facility] LABORATORY RBC 3.47 (L) 4.58 - [facility] RYAN 5.54 [facility] x10(6)/[facility] LABORATORY Hemoglobin 10.0 (L) 13.7 - [facility] 16.[facility] gm/dL [facility] LABORATORY Hematocrit 31.9 (L) 40.5 - [facility] 48.5 % [facility] LABORATORY MCV 91.9 82.9 - [facility] 93.1 [facility] LABORATORY MCH 28.8 27.5 - [place] 32.1 pg [facility] LABORATORY MCHC 31.3 (L) 32.0 - [facility] 35.7 gm/dL [facility] LABORATORY Platelets 234 145 - 357 [facility] x10(3)/[facility] LABORATORY RDWSD 54.0 (H) 36.0 - [facility] RYAN 45.0 [facility] LABORATORY RDWCV 16.2 (H) 11.4 - [facility] RYAN 13.8 % [facility] LABORATORY MPV 8.7 7.6 - 12.9 [facility] LABORATORY nRBC % Auto 0.0 % [facility] LABORATORY nRBC Abs Auto 0.000 0.000 - [facility] [employer] 0.000 [facility] x10(3)/[facility] LABORATORY Specimen Anatomical Collection Method Collection Time Receive d Time (Source) Location / / Volume Laterality Blood specimen 08/09/2017 1:10 AM 018 1:19 (specimen) EST AM EST Resulting Agency Comment Spec In Lab Yonathan Smith MD HEMATOLOGY ORDERABLES Performing Organization Address [facility] [place] [address] (ABNORMAL) Prothrombin Time (08/09/2017 [...] Smith MD HEMATOLOGY ORDERABLES Performing Organization Address [facility] [place] [address] (ABNORMAL) Basic Metabolic Panel (non-fasting) (08/09/2017 1:10 AM EST) athologist Signature Glucose Lvl 108 65 - 199 [facility] mg/dL [facility] LABORATORY Comment: Diabetes: [...] mg/dL [facility] LABORATORY Estimated GFR 45 (L) >=60 [facility] LABORATORY Comment: The reported eGFR should be multiplied b y 1.2 for patients. The MDRD is not an appropriate measure o f renal function for patients with body mass extremes or in patients with acute kidney failure. http://[employer]/DHnkdep http://[employer]/DHMCnkf Specimen Anatomical Collection Method Collection Time Receive d Time (Source) Location / / Volume Laterality Blood specimen 08/09/2017 1:10 AM 018 1:19 (specimen) EST AM EST Resulting Agency Comment Spec In Lab Yonathan Smith MD CHEMISTRY ORDERABLES Performing Organization Address City/State/ZIP Code Phon e Number [address] POCT Glucose (08/09/2017 12:05 AM EST) athologist Signature POC Glucose 128 65 - 199 [facility] mg/dL [facility] LABORATORY Comment: Supplemental ranges: <140 mg/dL before meals <180 mg/dL all other times of the day Specimen Anatomical Collection Method Collection Time Receive d Time (Source) Location / / Volume Laterality Blood specimen 08/09/2017 12:05 8 (specimen) AM EST 12:05 AM EST Yonathan Smith MD POINT OF CARE TEST ORDERABLE S Performing Organization Address City/[facility]/[place] [address] (ABNORMAL) POCT Glucose (08/08/2017 7:36 PM EST) athologist Signature POC Glucose 215 (H) 65 - 199 [facility] mg/dL [facility] LABORATORY Comment: Supplemental ranges: <140 mg/dL before meals <180 mg/dL all other times of the day Specimen Anatomical Collection Method Collection Time Receive d Time (Source) Location / / Volume Laterality Blood specimen 08/08/2017 7:36 PM 018 7:36 (specimen) EST PM EST Yonathan Smith MD POINT OF CARE TEST ORDERABLE S Performing Organization Address City/[facility]/[place] [address] (ABNORMAL) POCT Glucose (08/08/2017 6:23 PM EST) athologist Signature POC Glucose 216 (H) 65 - 199 [facility] mg/dL [facility] LABORATORY Comment: Supplemental ranges: <140 mg/dL before meals <180 mg/dL all other times of the day Specimen Anatomical Collection Method Collection Time Receive d Time (Source) Location / / Volume Laterality Blood specimen 08/08/2017 6:23 PM 018 6:23 (specimen) EST PM EST Yonathan Smith MD POINT OF CARE TEST ORDERABLE S Performing Organization Address City/[facility]/[place] [address] (ABNORMAL) APTT (08/08/2017 6:00 PM EST) athologist Signature PTT 97 (H) 25 - 35 sec [facility] LABORATORY Comment: The recommended therapeutic range for fu ll dose, unfractionated heparin at [facility] is 80 ? 114 seconds. [...] MD HEMATOLOGY ORDERABLES Performing Organization Address City/[facility]/ZIP Code Phon e Number [address] POCT Glucose (08/08/2017 4:42 PM EST) athologist Signature POC Glucose 78 65 - 199 [facility] mg/dL [facility] LABORATORY Comment: Supplemental ranges: <140 mg/dL before meals <180 mg/dL all other times of the day Specimen Anatomical Collection Method Collection Time Receive d Time (Source) Location / / Volume Laterality Blood specimen 08/08/2017 4:42 PM 018 4:42 (specimen) EST PM EST Yonathan Smith MD POINT OF CARE TEST ORDERABLE S Performing Organization Address City/State/[place] [address] (ABNORMAL) POCT Glucose (08/08/2017 4:01 PM EST) athologist Signature POC Glucose 58 (L) 65 - 199 [facility] mg/dL [facility] LABORATORY Comment: Supplemental ranges: <140 mg/dL before meals <180 mg/dL all other times of the day Specimen Anatomical Collection Method Collection Time Receive d Time (Source) Location / / Volume Laterality Blood specimen 08/08/2017 4:01 PM 018 4:01 (specimen) EST PM EST Yonathan Smith MD POINT OF CARE TEST ORDERABLE S Performing Organization Address City/State/[place] [address] POCT Glucose (08/08/2017 11:51 AM EST) athologist Signature POC Glucose 90 65 - 199 [facility] mg/dL [facility] LABORATORY Comment: Supplemental ranges: <140 mg/dL before meals <180 mg/dL all other times of the day Specimen Anatomical Collection Method Collection Time Receive d Time (Source) Location / / Volume Laterality Blood specimen 08/08/2017 11:51 8 (specimen) AM EST 11:51 AM EST Yonathan Smith MD POINT OF CARE TEST ORDERABLE S Performing Organization Address City/State/[place] [address] (ABNORMAL) APTT (08/08/2017 10:27 AM EST) athologist Signature PTT 64 (H) 25 - 35 sec [facility] LABORATORY Comment: The recommended therapeutic range for fu ll dose, unfractionated heparin at [facility] is 80 ? 114 seconds. [...] Address City/State/ZIP Code Phon e Number [address] POCT Glucose (08/08/2017 8:02 AM EST) athologist Signature POC Glucose 178 65 - 199 [facility] mg/dL [facility] LABORATORY Comment: Supplemental ranges: <140 mg/dL before meals <180 mg/dL all other times of the day Specimen Anatomical Collection Method Collection Time Receive d Time (Source) Location / / Volume Laterality Blood specimen 08/08/2017 8:02 AM 018 8:02 (specimen) EST AM EST Yonathan Smith MD POINT OF CARE TEST ORDERABLE S Performing Organization Address City/State/[place] [address] (ABNORMAL) APTT (08/08/2017 4:51 AM EST) athologist Signature PTT >160 25 - 35 [facility] (Critical) sec [facility] LABORATORY Comment: Called by: HOWARD, Read back by: Melba Jaramillo, Date/Time:08/08/17 05:43. The recommended therapeutic range for fu ll dose, unfractionated heparin at [facility] is 80 ? 114 seconds. [...] Organization Address City/State/ZIP Code Phon e Number [place] [id number] (ABNORMAL) Differential, Automated (08/08/2017 4:51 AM EST) [facility] gist Method Time Signature Neutrophils % 77.9 % [facility] LABORATORY Neutr Abs (ANC) 8.17 (H) 1.70 - [facility] 6.10 [facility] x10(3)/[facility] LABORATORY Lymphocytes % 10.3 % [facility] LABORATORY Lymphocytes Abs 1.1 0.9 - 3.2 [facility] x10(3)/[facility] LABORATORY Monocytes % 7.0 % [facility] LABORATORY Monocyte Abs 0.7 0.3 - 0.9 [facility] x10(3)/[facility] LABORATORY Eosinophils % 3.6 % [facility] LABORATORY Eosinophils Abs 0.4 0.0 - 0.4 [facility] x10(3)/[facility] LABORATORY Basophils % 0.5 % [facility] LABORATORY Basophils Abs 0.0 0.0 - 0.1 [facility] x10(3)/[facility] LABORATORY Immature Gran % 0.70 % [...] Organization Address City/State/[place] [address] (ABNORMAL) Hemogram (08/08/2017 4:51 AM EST) Analysis Performed At Patho logist Time Signature WBC 10.5 (H) 4.0 - 9.5 [facility] x[facility](3[facility] LABORATORY RBC 3.27 (L) 4.58 - [facility] 5.54 [facility] x10(6)/[facility] LABORATORY Hemoglobin 9.3 (L) 13.7 - [facility] 16.5 gm/dL [facility] LABORATORY Hematocrit 30.3 (L) 40.5 - [facility] 48.5 % [facility] MCV 92.7 82.9 - [facility] 93.1 [facility] LABORATORY MCH 28.4 27.5 - [facility] 32.1 pg [facility] LABORATORY MCHC 30.7 (L) 32.0 - [facility] 35.7 gm/dL [facility] LABORATORY Platelets 252 145 - 357 [facility] x10(3)/[facility] LABORATORY RDWSD 54.6 (H) 36.0 - [facility] RYAN 45.0 [facility] LABORATORY RDWCV 16.2 (H) 11.4 - [facility] 13.8 % [facility] LABORATORY MPV 9.1 7.6 - 12.9 [facility] nRBC % Auto 0.0 % [facility] LABORATORY nRBC Abs Auto 0.000 0.000 - [facility] R[facility]AN 0.000 [facility] x10(3)/[facility] LABORATORY Specimen Anatomical Collection Method Collection Time Receive d Time (Source) Location / / Volume Laterality Blood specimen 08/08/2017 4:51 AM 018 5:14 (specimen) EST AM EST Resulting Agency Comment Spec In Lab Yonathan Smith MD HEMATOLOGY ORDERABLES Performing Organization Address City/State/[place] [address] (ABNORMAL) Prothrombin Time (08/08/2017 [...] Organization Address City/State/[place] [address] (ABNORMAL) Basic Metabolic Panel (non-fasting) (08/08/2017 4:51 AM EST) athologist Signature Glucose Lvl 229 (H) 65 - 199 [facility] mg/dL [facility] LABORATORY Comment: Diabetes: [...] Calcium 7.9 (L) 8.5 - 10.5 mg/dL [facility] LABORATORY Estimated GFR 44 (L) >=60 [facility] LABORATORY Comment: The reported eGFR should be multiplied b y 1.2 for patients. The MDRD is not an appropriate measure o f renal function for patients with body mass extremes or in patients with acute kidney failure. http://[employer]/DHnkdep http://[employer]/DHMCnkf Specimen Anatomical Collection Method Collection Time Receive d Time (Source) Location / / Volume Laterality Blood specimen 08/08/2017 4:51 AM 018 5:14 (specimen) EST AM EST Resulting Agency Comment Spec In Lab Yonathan Smith MD CHEMISTRY ORDERABLES Performing Organization Address City/[facility]/ZIP Code Phon e Number [address] POCT Glucose (08/08/2017 4:20 AM EST) athologist Signature POC Glucose 193 65 - 199 [facility] mg/dL [facility] LAB[facility] Comment: Supplemental ranges: <140 mg/dL before meals <180 mg/dL all other times of the day Specimen Anatomical Collection Method Collection Time Receive d Time (Source) Location / / Volume Laterality Blood specimen 08/08/2017 4:20 AM 018 4:20 (specimen) EST AM EST Yonathan Smith MD POINT OF CARE TEST ORDERABLE S Performing Organization Address City/[facility]/ZIP Code Phon e Number [address] POCT Glucose (08/07/2017 11:11 PM EST) athologist Signature POC Glucose 124 65 - 199 [facility] mg/dL [facility] Comment: Supplemental ranges: <140 mg/dL before meals <180 mg/dL all other times of the day Specimen Anatomical Collection Method Collection Time Receive d Time (Source) Location / / Volume Laterality Blood specimen 08/07/2017 11:11 8 (specimen) PM EST 11:11 PM EST Yonathan Smith MD POINT OF CARE TEST ORDERABLE S Performing Organization Address City/[facility]/[place] [address] (ABNORMAL) APTT (08/07/2017 10:18 PM EST) athologist Signature PTT 114 (H) 25 - 35 sec [facility] LABORATORY Comment: The recommended therapeutic range for fu ll dose, unfractionated heparin at [facility] is 80 ? 114 seconds. [...] MD HEMATOLOGY ORDERABLES Performing Organization Address City/[facility]/[place] [address] POCT Glucose (08/07/2017 8:10 PM EST) athologist Signature POC Glucose 140 65 - 199 [facility] mg/dL [facility] Comment: Supplemental ranges: <140 mg/dL before meals <180 mg/dL all other times of the day Specimen Anatomical Collection Method Collection Time Receive d Time (Source) Location / / Volume Laterality Blood specimen 08/07/2017 8:10 PM 018 8:10 (specimen) EST PM EST Yonathan Smith MD POINT OF CARE TEST ORDERABLE S Performing Organization Address City/[facility]/[place] [address] POCT Glucose (08/07/2017 5:27 PM EST) athologist Signature POC Glucose 187 65 - 199 [facility] mg/dL [facility] LABOR[facility] Comment: Supplemental ranges: <140 mg/dL before meals <180 mg/dL all other times of the day Specimen Anatomical Collection Method Collection Time Receive d Time (Source) Location / / Volume Laterality Blood specimen 08/07/2017 5:27 PM 018 5:27 (specimen) EST PM EST Yonathan Smith MD POINT OF CARE TEST ORDERABLE S Performing Organization Address City/[facility]/[place] [address] POCT Glucose (08/07/2017 3:29 PM EST) athologist Signature POC Glucose 86 65 - 199 [facility] mg/dL [facility] LABORATORY Comment: Supplemental ranges: <140 mg/dL before meals <180 mg/dL all other times of the day Specimen Anatomical Collection Method Collection Time Receive d Time (Source) Location / / Volume Laterality Blood specimen 08/07/2017 3:29 PM 018 3:29 (specimen) EST PM EST Yonathan Smith MD POINT OF CARE TEST ORDERABLE S Performing Organization Address [facility] [place] [address] (ABNORMAL) APTT (08/07/2017 2:50 PM EST) athologist Signature PTT 60 (H) 25 - 35 sec [facility] LABORATORY Comment: The recommended therapeutic range for fu ll dose, unfractionated heparin at [facility] is 80 ? 114 seconds. [...] MD HEMATOLOGY ORDERABLES Performing Organization Address City/[facility]/ZIP [facility] [place] [address] (ABNORMAL) POCT Glucose (08/07/2017 2:23 PM EST) athologist Signature POC Glucose 55 (L) 65 - 199 [facility] mg/dL [facility]OR[facility] Comment: Supplemental ranges: <140 mg/dL before meals <180 mg/dL all other times of the day Specimen Anatomical Collection Method Collection Time Receive d Time (Source) Location / / Volume Laterality Blood specimen 08/07/2017 2:23 PM 018 2:23 (specimen) EST PM EST Yonathan Smith MD POINT OF CARE TEST ORDERABLE S Performing Organization Address City/State/ZIP Code Phon e Number [address] POCT Glucose (08/07/2017 12:08 PM EST) athologist Signature POC Glucose 77 65 - 199 [facility] mg/dL [facility] Comment: Supplemental ranges: <140 mg/dL before meals <180 mg/dL all other times of the day Specimen Anatomical Collection Method Collection Time Receive d Time (Source) Location / / Volume Laterality Blood specimen 08/07/2017 12:08 8 (specimen) PM EST 12:08 PM EST Yonathan Smith MD POINT OF CARE TEST ORDERABLE S Performing Organization Address City/State/ZIP Code Phon e Number [address] (ABNORMAL) Differential, Automated (08/07/2017 7:30 AM EST) [facility] gist Method Time Signature Neutrophils % 73.8 % [facility] LABORATORY Neutr Abs (ANC) 7.17 (H) 1.70 - [facility] 6.10 [facility] x10(3)/[facility] L LABORATORY Lymphocytes % 12.2 % [facility] LABORATORY Lymphocytes Abs 1.2 0.9 - 3.2 [facility] x10(3)/[facility] LABORATORY Monocytes % 9.0 % [facility] LABORATORY Monocyte Abs 0.9 0.3 - 0.9 [facility] x10(3)/[facility] LABORATORY Eosinophils % 3.9 % [facility] LABORATORY Eosinophils Abs 0.4 0.0 - 0.4 [facility] x10(3)/[facility] LABORATORY Basophils % 0.6 % [facility] LABORATORY Basophils Abs 0.1 0.0 - 0.1 [facility] x10(3)/[facility] LABORATORY Immature Gran % 0.50 % [...] Organization Address City/State/[place] [address] (ABNORMAL) Hemogram (08/07/2017 7:30 AM EST) Analysis Performed At Patho logist Time Signature WBC 9.7 (H) 4.0 - 9.5 [facility] x10(3)/[facility] LABORATORY RBC 3.54 (L) 4.58 - [facility] 5.54 [facility] x10(6)/[facility] LABORATORY Hemoglobin 9.9 (L) 13.7 - [facility] 16.5 gm/dL [facility] LABORATORY Hematocrit 32.3 (L) 40.5 - [facility]AN 48.5 % [facility] LABORATORY MCV 91.2 82.9 - [facility] 93.1 fL [facility] MCH 28.0 27.5 - [facility] 32.1 pg [facility] MCHC 30.7 (L) 32.0 - [facility] 35.7 gm/dL [facility] Platelets 312 145 - 357 [facility] x10(3)/[facility] LABORATORY RDWSD 53.2 (H) 36.0 - [facility] 45.0 [facility] LABORATORY RDWCV 16.0 (H) 11.4 - [facility] 13.8 % [facility] LABORATORY MPV 8.9 7.6 - 12.9 [facility] LABORATORY nRBC % Auto 0.0 % [facility] LABORATORY nRBC Abs Auto 0.000 0.000 - [facility] 0.000 [facility] x10(3)/[facility] LABORATORY Specimen Anatomical Collection Method Collection Time Receive d Time (Source) Location / / Volume Laterality Blood specimen 08/07/2017 7:30 AM 018 7:45 (specimen) EST AM EST Resulting Agency Comment Spec In Lab Yonathan Smith MD HEMATOLOGY ORDERABLES Performing Organization Address City/State/ZIP Code Phon e Number [place] [id number] (ABNORMAL) Basic Metabolic Panel (non-fasting) (08/07/2017 7:30 AM EST) P athologist Signature Glucose Lvl 80 65 - 199 [facility] mg/dL [facility]OR[facility] Comment: Diabetes: [...] mg/dL [facility] LABORATORY Estimated GFR 59 (L) >=60 [facility] LABORATORY Comment: The reported eGFR should be multiplied b y 1.2 for patients. The MDRD is not an appropriate measure o f renal function for patients with body mass extremes or in patients with acute kidney failure. http://[employer]/DHnkdep http://[employer]/DHMCnkf Specimen Anatomical Collection Method Collection Time Receive d Time (Source) Location / / Volume Laterality Blood specimen 08/07/2017 7:30 AM 018 7:45 (specimen) EST AM EST Resulting Agency Comment Spec In Lab Yonathan Smith MD CHEMISTRY ORDERABLES Performing Organization Address City/[facility]/ZIP Code Phon e Number [address] POCT Glucose (08/07/2017 7:27 AM EST) P athologist Signature POC Glucose 81 65 - 199 [facility] mg/dL [facility] LABOR[facility] Comment: Supplemental ranges: <140 mg/dL before meals <180 mg/dL all other times of the day Specimen Anatomical Collection Method Collection Time Receive d Time (Source) Location / / Volume Laterality Blood specimen 08/07/2017 7:27 AM 018 7:27 (specimen) EST AM EST Yonathan Smith MD POINT OF CARE TEST ORDERABLE S Performing Organization Address City/[facility]/ZIP Code Phon e Number [address] APTT (08/07/2017 7:04 AM EST) athologist Signature PTT 34 25 - 35 sec [facility] LABORATORY Comment: The recommended therapeutic range for fu ll dose, unfractionated heparin at [facility] is 80 ? 114 seconds. [...] Organization Address City/State/[place] [address] (ABNORMAL) Prothrombin Time (08/07/2017 [...] MD HEMATOLOGY ORDERABLES Performing Organization Address City/[facility]/[place] [address] POCT Glucose (08/07/2017 4:03 AM EST) athologist Signature POC Glucose 93 65 - 199 [facility] mg/dL [facility]ORY Comment: Supplemental ranges: <140 mg/dL before meals <180 mg/dL all other times of the day Specimen Anatomical Collection Method Collection Time Receive d Time (Source) Location / / Volume Laterality Blood specimen 08/07/2017 4:03 AM 018 4:03 (specimen) EST AM EST Yonathan Smith MD POINT OF CARE TEST ORDERABLE S Performing Organization Address City/State/[place] [address] POCT Glucose (08/07/2017 12:04 AM EST) athologist Signature POC Glucose 107 65 - 199 [facility] mg/dL [facility] LABOR[facility] Comment: Supplemental ranges: <140 mg/dL before meals <180 mg/dL all other times of the day Specimen Anatomical Collection Method Collection Time Receive d Time (Source) Location / / Volume Laterality Blood specimen 08/07/2017 12:04 8 (specimen) AM EST 12:04 AM EST Yonathan Smith MD POINT OF CARE TEST ORDERABLE S Performing Organization Address City/[facility]/ZIP Code Phon e Number [address] POCT Glucose (08/06/2017 7:56 PM EST) P athologist Signature POC Glucose 178 65 - 199 [facility] mg/dL [facility] LABORATORY Comment: Supplemental ranges: <140 mg/dL before meals <180 mg/dL all other times of the day Specimen Anatomical Collection Method Collection Time Receive d Time (Source) Location / / Volume Laterality Blood specimen 08/06/2017 7:56 PM 018 7:56 (specimen) EST PM EST Yonathan Smith MD POINT OF CARE TEST ORDERABLE S Performing Organization Address City/State/ZIP Code Phon e Number [address] [id number] (08/06/2017 2:32 PM EST) Component Value Ref Test Analysis Performed At Patholo gist Range Method Time Signature VB Text Department: Vascular Surgery Lab VASCUBASE Report Patient: [id number] (GREGORY HOANG) CPT: [id number] ICD10: I99.8 Referring Physician: YONATHAN SMITH ?? [...]
Routine documented in this encounter Care Teams Automotive Airconditioning Mechanic Relationship Specialty Start Date End Date Lovely Vicente MD PCP - General 04/16/[address] [place] [address] documented as of this encounter
--- OUTSIDE RECORDS SUMMARY | 2022-03-23 09:39 | XMS_ITS | Encounter Summary ---
:1945 Author Organization [facility] [place] [address] Care Team Providers Name Role Phone Lovely Vicente MD Primary Care Provider Reason for Visit Auth/Cert Specialty Diagnoses / Procedures Referred By Contact Refer red To Contact Diagnoses Critical lower limb ischemia CELLULITIS RT FOOT Procedures EMERGENCY Referral ID Status Reason Start Date Expiration Date Visits Requ ested Visits Authorized [id number] 1 1 Encounter Details Date Type Department Care Team Description 08/06/2017 Hospital Encounter [facility] [place] [address] Social History Tobacco Use Types Packs/Day [...] MD [facility] CARDIOLOGY [place], [place] [address] (Wo rk) 05/28/2022 Appointment Cardiology Zulma Dolan MD [facility] [address] [place], [place] [address] (Wo rk) 05/28/2022 Laboratory Appointment Lab 05/28/2022 Office Visit Cardiology Zulma Dolan MD [facility] [place] [address] Liz Poole PA [facility] [place] [address] 06/10/2022 Office Visit Dermatology Laura Scherer MD [facility] DR [facility] [place] [place] [address] (Wo rk) documented as of this encounter Visit Diagnoses Not on filedocumented in this encounter Care Teams Health Outcomes Liaison Relationship Specialty Start Date End Date Lovely Vicente MD PCP - General 04/16/[address] [place] [address] documented as of this encounter
--- OUTSIDE RECORDS SUMMARY | 2022-03-23 09:40 | XMS_ITS | Encounter Summary ---
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 Patient [...] performed by Manny Mcknight MD at [facility] MAIN OR ??? PRO CABG, ARTERIAL, SINGLE N/A 07/07/2017 @CABG, USING ARTERIAL GRAFT;SINGLE ARTERIAL GRAFT (WRVU 33.75) performed by Yuan Retana MD at [facility] MAIN OR ??? PRO CABG, ARTERY-VEIN, TWO N/A 07/07/2017 @CABG, TWO VENOUS GRAFTS & ARTERIAL GRAFT (WRVU 7.93) performed by Yuan Retana MD at [facility] MAIN OR ??? PRO COLONOSCOPY, REMFlash MOCK, SNARE 01/16/2014 COLONOSCOPY, POLYPECTOMY, REMOVAL LESION BY SNARE performed by Nohemi Jaimes MD at [facility] ENDOSCOPY ??? PRO ENDOSCOPY W/VIDEO-ASST VEIN HARVEST, CABG Right 07/07/2017 ENDOSCOPIC HARVEST VEIN(S) FOR CABG (WRVU 0.31) performed by Yuan Retana MD at [facility] MAIN OR ??? 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 Hank Zhang Vascular Surgery, PGY2 Pager #[phone] Associated attestation - Arik Clement MD - [...] Vitaliy Nobles MD [facility] [address] [place], [place] [address] (Wo rk) 05/28/2022 Appointment Cardiology Zulma Dolan MD [facility] [place], [place] [address] (Wo rk) 05/28/2022 Laboratory Appointment Lab 05/28/2022 Office Visit Cardiology Zulma Dolan MD [facility] [place] [address] Liz Poole PA [facility] [place] [address] 06/10/2022 Office Visit Dermatology Laura Scherer MD [facility] DR TEJA GR-DERMAT [place], [place] [address] (Wo rk) documented as [...] Value Ref Test Analysis Performed At [facility] Range Method Time Signature VB Text Department: Vascular Surgery Lab VASCUBASE Report Patient: [id number] (GREGORY FATIMA) CPT: 56440 ICD10: I82.541 Referring Physician: TAMIKO JIMÉNEZ ?? [...] Jiménez MD VASCULAR ORDERABLES Performing Organization Address City/[facility]/ZIP Code Phon e Number VASCUBASE POCT Glucose (07/29/2017 2:28 PM EST) P athologist Signature POC Glucose 128 65 - 199 [facility] mg/dL LABORATORY Comment: Supplemental ranges: <140 mg/dL before meals <180 mg/dL all other times of the day Specimen Anatomical Collection Method Collection Time Receive d Time (Source) Location / / Volume Laterality Blood specimen 07/29/2017 2:28 PM 018 2:28 (specimen) EST PM EST Tamiko Jiménez MD POINT OF CARE TEST ORDERABLE S Performing Organization Address [facility] [place] [address] (ABNORMAL) D-Dimer, Quantitative (07/29/2017 2:15 PM EST) [facility] [employer] Method Time Signature D-Dimer, Quant 1,699 (H) 0 - 500 [facility] FEU ng/ml LABORATORY Comment: The D-Dimer assay is used [...] MD HEMATOLOGY ORDERABLES Performing Organization Address City/[facility] Phon e Number [address] (ABNORMAL) Differential, Automated (07/29/2017 2:15 PM EST) [facility] [employer] Method Time Signature Neutrophils % 82.5 % [facility] LABORATORY Neutr Abs (ANC) 10.21 (H) 1.70 - [facility] 6.10 [facility] x10(3)/[facility] LABORATORY Lymphocytes % 7.1 % [facility] LABORATORY Lymphocytes Abs 0.9 0.9 - 3.2 [facility] x10(3)/[facility] LABORATORY Monocytes % 6.5 % [facility] LABORATORY Monocyte Abs 0.8 0.3 - 0.9 [facility] x10(3)/[facility] LABORATORY Eosinophils % 2.7 % [facility] LABORATORY Eosinophils Abs 0.3 0.0 - 0.4 [facility] x10(3)/[facility] LABORATORY Basophils % 0.6 % [facility] LABORATORY Basophils Abs 0.1 0.0 - 0.1 [facility] x10(3)/[facility] LABORATORY Immature Gran % 0.60 [...] Organization Address City/State/[place]IP [place] [address] (ABNORMAL) Hemogram (07/29/2017 2:15 PM EST) Analysis Performed At Patho logist Time Signature WBC 12.4 (H) 4.0 - 9.5 [facility] x10(3)/[facility] LABORATORY RBC 4.17 (L) 4.58 - [facility] 5.54 [facility] x10(6)/[facility] LABORATORY Hemoglobin 12.1 (L) 13.7 - [facility] 16.5 gm/dL LABORATORY Hematocrit 38.1 (L) 40.5 - [facility] 48.5 % LABORATORY MCV 91.4 82.9 - [facility] RYAN 93.1 [facility] LABORATORY MCH 29.0 27.5 - [place] OLIVASCK 32.1 pg LABORATORY MCHC 31.8 (L) 32.0 - [facility] 35.7 gm/dL LABORATORY Platelets 204 145 - 357 [facility] x10(3)/[facility] LABORATORY RDWSD 50.5 (H) 36.0 - [facility] RYAN 45.0 [facility] LABORATORY RDWCV 15.3 (H) 11.4 - [facility] RYAN 13.8 % LABORATORY MPV 9.4 7.6 - 12.9 [facility] nRBC % Auto 0.0 % [facility] LABORATORY nRBC Abs Auto 0.000 0.000 - [place] RYAN 0.000 [facility] x10(3)/[facility] LABORATORY Specimen Anatomical Collection Method Collection Time Receive d Time (Source) Location / / Volume Laterality Blood specimen 07/29/2017 2:15 PM 018 2:36 (specimen) EST PM EST Resulting Agency Comment Spec In Lab Tamiko Jiménez MD HEMATOLOGY ORDERABLES Performing Organization Address City/State/[place] [address] (ABNORMAL) Prothrombin Time (07/29/2017 2:15 PM EST) P athologist Signature PT 24.4 (H) 11.8 - 14.0 [facility] LABORATORY INR 2.2 (H) 0.9 - 1.1 [facility] [...] Organization Address City/State/[place] [address] Arterial Duplex Leg, Unil (07/29/2017 11:50 AM EST) Component Value Ref Test Analysis Performed At [facility] Range Method Time Signature VB Text Department: Vascular Surgery Lab VASCUBASE Report Patient: [id number] (GREGORY FATIMA) CPT: 59304 ICD10: Z09;I97.610 Referring Physician: TAMIKO JIMÉNEZ ?? [...] Value Ref Test Analysis Performed At [facility] Range Method Time Signature VB Text Department: Vascular Surgery Lab VASCUBASE Report Patient: [id number] (GREGORY FATIMA) CPT: 52095 ICD10: I82.441 Referring Physician: TAMIKO JIMÉNEZ ?? [...] he calf. Notification: Marquis Pathak MD (pager #[phone]) was notif ied of the preliminary findings. [...] STAT documented in this encounter Care Teams Swatcher Relationship Specialty Start Date End Date Lovely Vicente MD PCP - General 04/16/[address] [place] [address] documented as of this encounter
--- OUTSIDE RECORDS SUMMARY | 2022-03-23 09:40 | XMS_ITS | Encounter Summary ---
:1945 Author Organization [facility] Address [facility] [place] [address] Care Team Providers Name Role Phone Lovely Vicente MD Primary Care Provider Encounter Details Date Type Department Care Team Description 07/29/2017 Transcribe Orders Laboratory Lovely Vicente, Coronary artery rupture; [facility] Ischemic cardiomyopathy; [facility] [address] Atherosclerosis of picayune co ronary artery, angina presence unspecified, unspecified whether picayune or transplanted heart; [place], [place] [address] Essential hypertension, malignant; [address] [place], [place] 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, unspecified residential insulin use status [phone] [id number] Social History Tobacco Use Types Packs/Day Years [...] [facility] ER [address] T[address] [place], [place] [address] (Wo rk) 05/28/2022 Appointment Cardiology Zulma Dolan MD [facility] [place], [place] [address] (Wo rk) 05/28/2022 Laboratory Appointment Lab 05/28/2022 Office Visit Cardiology Zulma Dolan MD [facility] [place] [address] Liz Poole PA [facility] [place] [address] 06/10/2022 Office Visit Dermatology Laura Scherer MD [facility] [address]MAT OLOGY [place], [place] [address] (Wo rk) Scheduled Orders Name Type Priority Associated Diagnoses Order S chedule Lab Use Only, Fax Lab Routine Coronary arter y rupture Expected: 07/29/2017 Request Ischemic cardiom yopathy (Approximate), Atherosclerosis of picayune Ex jose: 07/29/2018 coronary artery, angina presence unspecified, unspecified whether picayune or transplanted heart Essential hypertension, malignant documented as of this encounter Results Uric acid (08/04/2017 12:55 PM EST) P athologist Signature Uric Acid 7.1 3.5 - 8.5 [facility] mg/dL [facility] LABORATORY Specimen Anatomical Collection Method Collection Time Receive d Time (Source) Location / / Volume Laterality Blood specimen 08/04/2017 12:55 8 1:01 (specimen) PM EST PM EST Resulting Agency Comment Spec In Lab Lovely Vicente MD CHEMISTRY ORDERABLES Performing Organization Address City/State/[place] [address] (ABNORMAL) Hemogram (08/04/2017 12:55 PM EST) Analysis Performed At Patho logist Time Signature WBC 15.8 (H) 4.0 - 9.5 [facility] R[facility]AN x10(3)/[facility] LABORATORY RBC 3.48 (L) 4.58 - [place] RYAN 5.54 [facility] x10(6)/[facility] LABORATORY Hemoglobin 9.9 (L) 13.7 - [facility] 16.5 gm/dL [facility] LABORATORY Hematocrit 31.4 (L) 40.5 - [place] ZHAORYAN 48.5 % [facility] LABORATORY MCV 90.2 82.9 - [facility] 93.1 [facility] LABORATORY MCH 28.4 27.5 - [place] RYAN 32.1 pg [facility] LABORATORY MCHC 31.5 (L) 32.0 - [facility] 35.7 gm/dL [facility] LABORATORY Platelets 310 145 - 357 [facility] x10(3)/[facility] LABORATORY RDWSD 51.8 (H) 36.0 - [facility] 45.0 [facility] LABORATORY RDWCV 15.8 (H) 11.4 - [facility] 13.8 % [facility] LABORATORY MPV 8.9 7.6 - 12.9 [facility] LABORATORY nRBC % Auto 0.0 % [facility] LABORATORY nRBC Abs Auto 0.000 0.000 - [facility] 0.000 [facility] x10(3)/[facility] LABORATORY Specimen Anatomical Collection Method Collection Time Receive d Time (Source) Location / / Volume Laterality Blood specimen 08/04/2017 12:55 8 1:01 (specimen) PM EST PM EST Resulting Agency Comment Spec In Lab Lovely Vicente MD HEMATOLOGY ORDERABLES Performing Organization Address City/State/[place] [address] (ABNORMAL) Comprehensive metabolic panel (non-fasting) (08/04/2017 12:55 PM EST) P athologist Signature Glucose Lvl 208 (H) 65 - 199 [facility] mg/dL [facility] LABORATORY Comment: Diabetes: >=200 mg/dL plus symp toms BUN 32 (H) 10 - 20 mg/dL [facility] LABORATORY Creatinine 1.58 (H) 0.80 - 1.50 mg/dL [place] [...] or in patients with acute kidney failure. [email or web address] [email or web address]/DHMCnkf Specimen Anatomical Collection Method Collection Time Receive d Time (Source) Location / / Volume Laterality Blood specimen 08/04/2017 12:55 8 1:01 (specimen) PM EST PM EST Resulting Agency Comment Spec In Lab Lovely Vicente MD CHEMISTRY ORDERABLES Performing Organization Address City/State/[place] [address] (ABNORMAL) Hemoglobin A1c (08/04/2017 12:55 PM EST) Analysis Performed At Patho logist Time Signature Hemoglobin A1C 6.2 (H) 4.3 - 5.[address] [facility] LABORATORY Comment: Reference Range: 4.3 - [...] Mellitus, Diabetes Care 2013; 36: Suppl. 1, S67-01 Est Avg Gluc See note mg/dL [facility] LABORATORY Comment: Estimated Average Glucose not [...] into estimated average glucose values. ??Diabetes Care 2008:31(8):6545-4865. Specimen Anatomical Collection Method Collection Time Receive d Time (Source) Location / / Volume Laterality Blood specimen 08/04/2017 12:55 8 1:01 (specimen) PM EST PM EST Resulting Agency Comment Spec In Lab Lovely Vicente MD CHEMISTRY ORDERABLES Performing Organization Address City/[facility]/[place]IP [place] [address] (ABNORMAL) Prothrombin Time (08/04/2017 [...] Vicente MD HEMATOLOGY ORDERABLES Performing Organization Address City/[facility] [place] [address] documented in this encounter Visit Diagnoses Diagnosis Coronary artery rupture Acute myocardial infarction, unspecified site, episode of care unspecified Ischemic cardiomyopathy Other specified forms of chronic ischemi c heart disease Atherosclerosis of picayune coronary arter y, angina presence unspecified, unspecified whether picayune or transplanted heart Essential hypertension, malignant Diabetes mellitus due to underlying cond ition with diabetic nephropathy, unspecified 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
--- OUTSIDE RECORDS SUMMARY | 2022-03-23 09:40 | XMS_ITS | Encounter Summary ---
:1945 Author Organization [facility] [place] [address] Care Team Providers Name Role Phone Lovely Vicente MD Primary Care Provider Reason for Visit Reason Comments Follow-up Encounter Details Date Type Department Care Team Description 07/29/2017 Office Visit Cardiac Surgery at [facility] Yuan Retana MD S/P CABG x [address] [facility] [place] [address] CARDIOTHORACIC SURGERY [phone] [place], [place] [address] (Wo rk) Social [...] evaluation by vascular surgery. Yuan Retana MD [phone] documented in this encounter Plan of Treatment Upcoming Encounters Date Type Specialty Care Team Description 03/26/2022 Office Visit Cardiology Vitaliy Nobles MD [facility] DR [place], [place] [address] (Wo rk) 05/28/2022 Appointment Cardiology Zulma Dolan MD [facility] [address] [place] [address] (Wo rk) 05/28/2022 Laboratory Appointment Lab 05/28/2022 Office Visit Zulma Garrison MD [facility] [place] [address] Liz Poole PA [facility] [place] [address] 06/10/2022 Office Visit Dermatology Laura Scherer MD [facility] ER DR TEJA GR[address]DERMAT [place], [place] 0[address] (Wo rk) documented as of this encounter Visit Diagnoses Diagnosis S/P CABG x 3 Postsurgical aortocoronary bypass status documented in this encounter Care Teams Sitecore Developer Relationship Specialty Start Date End Date Lovely Vicente MD PCP - General 04/16/15 [facility] [address] [place] [address] documented as of this encounter
--- OUTSIDE RECORDS SUMMARY | 2022-03-23 09:40 | XMS_ITS | Encounter Summary ---
:1945 [place] [address] Care Team Providers Name Role Phone Lovely Vicente MD Primary Care Provider Encounter Details Date Type Department Care Team Description 08/03/2017 Hospital Encounter Radiology [facility] at [place], Tommy Mijares [facility] [place] [address] VASCULAR SURGERY [phone] [place], [place] [address] (Wo rk) Social History [...] [facility] [address] [place], [place] [address] (Wo rk) 05/28/2022 Appointment Cardiology Zulma Dolan MD [facility] Dr [place], [place] [address] (Wo rk) 05/28/2022 Laboratory Appointment Lab 05/28/2022 Office Visit Cardiology Zulma Dolan MD [facility] [place] [address] Liz Poole PA [facility] [place] [address] 06/10/2022 Office Visit Dermatology Laura Scherer MD [facility] [address]DERMAT [place], [place] [address] (Wo rk) documented as of [...] Received Time / Laterality Volume Narrative [facility] - 08/03/2017 6:03 PM EST This exam is for storage only and is aut o-finalizing. Arik Clement MD IMG FILM LIBRARY ORDERABLES Performing Organization Address City/State/ZIP Code Phon e Number [place], [place] documented in this encounter Visit Diagnoses Diagnosis Pain Generalized pain documented in this encounter Care Teams Customer Service Cashier Relationship Specialty Start Date End Date Lovely Vicente MD PCP - General 04/16/[address] [place] [address] documented as of this encounter
--- OUTSIDE RECORDS SUMMARY | 2022-03-23 09:40 | XMS_ITS | Encounter Summary ---
:1945 [place] [address] Care Team Providers Name Role Phone Lovely Vicente MD Primary Care Provider Reason for Visit Reason Onset Date Comments Questions 07/16/2017 fluid retention Encounter Details Date Type Department Care Team Description 07/16/2017 Telephone Cardiology at [facility] Martha Comer, Questions ([facility] RN retention ) [place] [address] Social History Tobacco Use Types Packs/Day [...] the direct number to the HF team ([phone]). She is aware of his appt with LIDDER Hans on 07/21/17 and the need for labs prior to that visit. verbalized good understanding of the current POC. documented in this encounter Plan of Treatment Upcoming Encounters Date Type Specialty Care Team Description 03/26/2022 Office Visit Cardiology Vitaliy Nobles MD [facility] [address] [place], [place] [address] (Wo rk) 05/28/2022 Appointment Cardiology Zulma Dolan MD [facility] [place], [place] [address] (Wo rk) 05/28/2022 Laboratory Appointment Lab 05/28/2022 Office Visit Cardiology Zulma Dolan MD [facility] [place] [address] Liz Poole PA [facility] [place] [address] 06/10/2022 Office Visit Dermatology Laura Scherer MD [facility] DR [address]MAT OLOGY [place], [place] [address] (Wo rk) documented as of this encounter Visit Diagnoses Not on filedocumented in this encounter Care Teams Quality Associate Relationship Specialty Start Date End Date Lovely Vicente MD PCP - General 04/16/[address] [place] [address] documented as of this encounter
--- OUTSIDE RECORDS SUMMARY | 2022-03-23 09:40 | XMS_ITS | Encounter Summary ---
:1945 Author Organization [facility] [place] [address] Care Team Providers Name Role Phone Lovely Vicente MD Primary Care Provider Reason for Visit Reason Onset Date Comments Other 07/22/2017 lovenox bridge Encounter Details Date Type Department Care Team Description 07/22/2017 Telephone Cardiology at [facility] Court Cadena RN Other (lovenox bridge) [place] [address] Social History Tobacco Use Types Packs/Day [...] 4:49 PM EST VAMSI Del Castillo, at [facility], called earlier today with a question re: lovenox bridge for this patient who was recently discharged from [facility] r/t a blood clot. Discharge note faxed to [facility] (fax# [phone], Ph#: [phone]) which contains instructions r/t lovenox bridge as follows: Anticoagulation: on lovenox bridge to therapeutic coumadin for AFib. Goal INR 2-3. At discharge INR=1.5. The lovenox injections can stop when INR >2, coumadin will continue indefinitely. documented in this encounter Plan of Treatment Upcoming Encounters Date Type Specialty Care Team Description 03/26/2022 Office Visit Cardiology Vitaliy Nobles MD [facility] [address] [place], [place] [address] (Wo rk) 05/28/2022 Appointment Cardiology Zulma Dolan MD [facility] [address] [place], [place] [address] (Wo rk) 05/28/2022 Laboratory Appointment Lab 05/28/2022 Office Visit Cardiology Zulma Dolan MD [facility] [place] [address] Liz Poole PA [facility] [place] [address] 06/10/2022 Office Visit Dermatology Laura Scherer MD [facility] DR [address]DERMAT [place], [place] [address] (Wo rk) documented as of this encounter Visit Diagnoses Not on filedocumented in this encounter Care Teams Church [employer] Administrator Relationship Specialty Start Date End Date Lovely Vicente MD PCP - General 04/16/[address] [place] [address] documented as of this encounter
--- OUTSIDE RECORDS SUMMARY | 2022-03-23 09:40 | XMS_ITS | Encounter Summary ---
:1945 [place] [address] Care Team Providers Name Role Phone Lovely Vicente MD Primary Care Provider Encounter Details Date Type Department Care Team Description 07/29/2017 Telephone Pain Aurelia Crawford MD [facility] [place] [address] PAIN CLINIC [phone] [place], [place] [address] (Wo rk) Social [...] MD [facility] [address] [place], [place] [address] (Wo rk) 05/28/2022 Appointment Cardiology Zulma Dolan MD [facility] [place], [place] [address] (Wo rk) 05/28/2022 Laboratory Appointment Lab 05/28/2022 Office Visit Cardiology Zulma Dolan MD [facility] [place] [address] Liz Poole PA [facility] [place] [address] 06/10/2022 Office Visit Dermatology Laura Scherer MD [facility] DR [address]DERMAT [facility] [place], [place] [address] (Wo rk) documented as of this encounter Visit Diagnoses Not on filedocumented in this encounter Care Teams General Worker Relationship Specialty Start Date End Date Lovely Vicente MD PCP - General 04/16/[address] [place] [address] documented as of this encounter
--- OUTSIDE RECORDS SUMMARY | 2022-03-23 09:40 | XMS_ITS | Encounter Summary ---
:1945 Author Organization [place] [address] Care Team Providers Name Role Phone Lovely Vicente MD Primary Care Provider Reason for Visit Reason Comments Foot Pain Auth/Cert Specialty Diagnoses / Procedures Referred By Contact Refer red To Contact Diagnoses Ischemic foot Procedures NAYE OBSVO Referral ID Status Reason Start Date Expiration Date Visits Requ ested Visits Authorized [id number] 1 1 Encounter Details Date Type Department Care Team Description 07/27/2017 Emergency 1 [facility] Lokesh Swenson MD [facility] [address] [place] [address] Femoral artery pseudo-aneurysm, right; [facility] Tam Bauman MD [facility] [place] [address] [place] [address] Social History Tobacco Use Types Packs/Day [...] Gregory Fatima Patient Age: 72 y.o. Language: Ukrainian Race: White Ethnicity: Not nor Admit date: [...] please contact your inpatient physician through the [facility] Manager Surgical . Issues after hours and on weekends [...] RLE critical limb ischemia, who presented to [facility] with worsening RLE pain. Pt post-op course after CABG was significant for paroxysmal Afib, and he was started on Coumadin given elevated [id number] score. 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 He [...] in the last 7068 hours. Invalid input(s): [id number] Recent Labs 07/08/17 0400 07/07/17 0515 07/06/17 [...] (it was low at 1.6 here at [facility]) 7. Use the tramadol if dilaudid or tylenol is not working 8. Stop taking the potassium supplement - your blood potassium level was elevated. Ask your doctors at future visits if this should be restarted. 9. Antibiotic for 5 days recommended by cardiothoracic surgery for chest wound drainage Follow-Up Appointments Vascular surgery as previously schedule Your Inpatient Doctor(s) at [facility]: CARLOS ALBERTO ROSALES MD General Instructions None Future Appointments and Orders Future Appointments Provider Department Dept Phone 07/30/2017 8:30 AM OSWALDO, THREE L Lab 3L [facility] [phone] 07/30/2017 9:40 AM Danette Maxwell APRN [facility] [place] [phone] 08/04/2017 1:00 PM Daniele Mooney [place] [facility] [place] [phone] 08/04/2017 2:15 PM Arik Clement MD Vascular Surgery at [place] [phone] 08/11/2017 10:00 AM [facility] ROOM 2 XRay at [place] [phone] Please go to Recruiter Specialist Area 3T ([place] Location). 08/11/2017 11:00 AM Yuan Retana MD Cardiac Surgery at [place] [phone] 09/07/2017 3:00 PM LAB, THREE L Lab 3L [facility] [phone] 09/07/2017 4:00 PM Luz Prescott MD Endocrinology at [place] [phone] Discharge References/Attachments None documented in this encounter [...] (it was low at 1.6 here at [facility]) 3. Use the tramadol if dilaudid or tylenol is not working 4. Stop taking the potassium supplement - your blood potassium level was elevated. Ask your doctors at future visits if this should be restarted. 5. Antibiotic for 5 days recommended by cardiothoracic surgery for chest wound drainage Follow-Up Appointments Vascular surgery as previously schedule Your Inpatient Doctor(s) at [facility]: CARLOS ALBERTO ROSALES MD documented in this [...] Gas) No results found for: PHART, PO2ART, [id number] Assessment/Plan: 72 y.o. male s/p CABG in [...] intervention: Education Nutrition Recommendations: Recommend continuation of [facility], CHO2 diet order Patient and denied need [...] Orders Diet Daily Healthy Menu Choices/Cardiac diet ([facility]-Diet) 60/ CHO counting level 2 Frequency: Effective Now Number of Occurrences: Until Specified Admit Weight: 83.92 kg Estimated body mass index is 28.13 kg/(m^2) as calculated from the following: Height as of this encounter: 172.7 cm (5' 8). Weight as of this encounter: 83.9 kg (185 lb). [place] body weight: 68.4 kg (150 lb 12.7 [...] RLE critical limb ischemia, who presented to [facility] with worsening RLE pain. Visited with patient [...] spent >30 minutes (Day of Discharge Code 26431) involved in the final examination of the [...] Melanoma ID: 72 y.o. Male presents to [facility] with persistent pain b/l lower extremities History of Present Illness: HPI 72 y.o. male with PMH ASCVD s/p CABG (07/07/17), MARIA VICTORIA on CPAP QHS, HTN, HLD, DM2, with recent hospitalization for RLE critical limb ischemia, who presented to [facility] with worsening RLE pain. Pt post-op course after CABG was significant for paroxysmal Afib, and he was started on Coumadin given elevated [id number] score. 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 He [...] MD at [facility] OR Prior To Admission Medications: [...] Procedure Component Value Units Date/Time Blood culture [[id number]] Collected: 07/09/1739 Lab Status: Final result Specimen: Blood from Arm, Right Updated: 07/14/17701 Blood Culture No growth at 5 days. Blood culture [[id number]] Collected: 07/09/170 Lab Status: Final result Specimen: [...] limb ischemia following CABG, who presented to [facility] ED from home with persistent B/L LE [...] continued Diet Daily Healthy Menu Choices/Cardiac diet ([facility]-Diet) 60/60/75 CHO counting level 2Cardiac, low salt, CHO 2 Discharge planning Pending improvement in pain control PT/OT/Speech PT ordered Lines/Access PIV Ocasio catheter No DVT/GI Prophylaxis Lovenox bridge to Coumadin, SCD. Code status Full Code Family PCP Lovely Vicente MD [phone] Attestation Please see my note for details [...] encounter Miscellaneous Notes Plan of Care - [place]-Joyce Damian, PT - 07/27/2017 3:26 PM EST [...] Anticipated Discharge Disposition: home with assist Pager: [phone] JOYCE KING, PT Inpatient Physical Therapy 2017 [...] patient's evaluation including the following functional test(s) [facility]. Current ability measures, co-morbidities and clinical [...] a lovenox bridge. Mr. Fatima returns to [facility] ED tonight because of ongoing pain in [...] MD at [facility] OR MEDICATIONS: No current facility-administered [...] up in clinic 1-2 weeks after discharge. [facility] Vascular Surgery Plan of Care [...] [facility] [address] [place], [place] [address] (Wo rk) 05/28/2022 Appointment Cardiology Zulma Dolan MD [facility] [address] [place], [place] [address] (Wo rk) 05/28/2022 Laboratory Appointment Lab 05/28/2022 Office Visit Cardiology Zulma Dolan MD [facility] [place] [address] Liz Poole PA [facility] [place] [address] 06/10/2022 Office Visit Dermatology Laura Scherer MD [facility] DR [address]JA [address], [place] [address] (Wo rk) documented [...] section. TYPE AND SCREEN STAT 07/27/2017 12:53 ([facility]/CGP/SHANDA) AM EST BASIC METABOLIC PANEL STAT 07/27/2017 12:53 Re sults for this (NON-FASTING) AM EST procedure are in the results section. documented in this encounter Results POCT Glucose (07/27/2017 11:53 AM EST) P athologist Signature POC Glucose 175 65 - 199 [facility] mg/dL [facility] Comment: Supplemental ranges: <140 mg/dL before meals <180 mg/dL all other times of the day Specimen Anatomical Collection Method Collection Time Receive d Time (Source) Location / / Volume Laterality Blood specimen 07/27/2017 11:53 8 (specimen) AM EST 11:53 AM EST Tam Bauman MD POINT OF CARE TEST ORDERABLE S Performing Organization Address City/State/ZIP [place] [address] Arterial Duplex Leg, Unil (07/27/2017 7:40 AM EST) Component Value Ref Test Analysis Performed At Patholo gist Range Method Time Signature VB Text Department: Vascular Surgery Lab VASCUBASE Report Patient: [id number] (GREGORY FATIMA) CPT: 21650 ICD10: I97.610;I72.4;Z09 Referring Physician: TAM BAUMAN ?? [...] Glucose 96 65 - 199 [facility] mg/dL [facility] Comment: Supplemental ranges: <140 [...] [place] [address] ABORH Recheck Status (07/27/2017 12:53 AM EST) Patholo gist Method Time Signature ABORH Type Completed [facility] LABORATORY Specimen Anatomical Collection Method Collection Time Receive d Time (Source) Location / / Volume Laterality Blood specimen 07/27/2017 12:53 8 (specimen) AM EST 12:58 AM EST Resulting Agency Comment Spec In Lab Anegla Swenson MD BLOOD BANK ORDERABLES Performing Organization Address City/State/ZIP Code Phon e Number [address] Gold Tube HOLD (07/27/2017 12:53 AM EST) P athologist Signature Gold Hold Sample in [facility]. [facility] Specimen Anatomical Collection Method Collection Time Receive d Time (Source) Location / / Volume Laterality Blood specimen Venous Draw / 07/27/2017 12:53 07/27/19 18 1:01 (specimen) Unknown AM EST AM EST Angela Swenson MD CHEMISTRY ORDERABLES Performing Organization Address City/[facility]/ZIP Code Phon e Number [address] (ABNORMAL) Differential, Automated (07/27/2017 12:53 AM EST) Patholo gist Method Time Signature Neutrophils % 75.0 % [facility] LABORATORY Neutr Abs (ANC) 11.30 (H) 1.70 - [facility] 6.10 [facility] x10(3)/[facility] LABORATORY Lymphocytes % 9.9 % [facility] LABORATORY Lymphocytes Abs 1.5 0.9 - 3.2 [facility] x10(3)/[facility] LABORATORY Monocytes % 8.6 % [facility] LABORATORY Monocyte Abs 1.3 (H) 0.3 - 0.9 [facility] x10(3)/[facility] LABORATORY Eosinophils % 4.8 % [facility] LABORATORY Eosinophils Abs 0.7 (H) 0.0 - 0.4 [facility] x10(3)/[facility] LABORATORY Basophils % 0.8 % [facility] LABORATORY Basophils Abs 0.1 0.0 - 0.1 [facility] x10(3)/[facility] LABORATORY Immature Gran % 0.90 % WHITE [...] Gran Abs 0.13 (H) 0.00 - 0.04 x10(3)/[facility] LABORATORY Specimen Anatomical Collection Method Collection Time Receive d Time (Source) Location / / Volume Laterality Blood specimen 07/27/2017 12:53 8 1:00 (specimen) AM EST AM EST Resulting Agency Comment Spec In Lab Angela Swenson MD HEMATOLOGY ORDERABLES Performing Organization Address City/State/ZIP [place] [address] (ABNORMAL) Hemogram (07/27/2017 12:53 AM EST) Analysis Performed At Patho logist Time Signature WBC 15.0 (H) 4.0 - 9.5 [facility] x10(3)/[facility] LABORATORY RBC 3.59 (L) 4.58 - [facility] 5.54 [facility] x10(6)/[facility] LABORATORY Hemoglobin 10.3 (L) 13.7 - [facility] 16.5 gm/dL [facility] LAB[facility] Hematocrit 32.6 (L) 40.5 - [facility] 48.5 % [facility] LABORATORY MCV 90.8 82.9 - [facility] 93.1 [facility] LABORATORY MCH 28.7 27.5 - [facility] 32.1 pg [facility] LABORATORY MCHC 31.6 (L) 32.0 - [facility] 35.[facility] gm/dL [facility]ORY Platelets 322 145 - 357 [facility] x10(3)/[facility] LABORATORY RDWSD 48.7 (H) 36.0 - [facility] 45.0 [facility] LABORATORY RDWCV 14.7 (H) 11.4 - [facility] 13.8 % [facility] LABORATORY MPV 8.9 7.6 - 12.9 [facility] LABORATORY nRBC % Auto 0.0 % [facility] LABORATORY nRBC Abs Auto 0.000 0.000 - [facility] 0.000 [facility] x10(3)/[facility] LABORATORY Specimen Anatomical Collection Method Collection Time Receive d Time (Source) Location / / Volume Laterality Blood specimen 07/27/2017 12:53 8 1:00 (specimen) AM EST AM EST Resulting Agency Comment Spec In Lab Angela Swenson MD HEMATOLOGY ORDERABLES Performing Organization Address City/[facility]/ZIP [place] [address] Antibody screen (07/27/2017 12:53 AM EST) Patholo gist Method Time Signature Ab Screen Negative [facility] LABORATORY Expires at 07/30/2017 [facility] 2359 on: [facility]ORY Specimen Anatomical Collection Method Collection Time Receive d Time (Source) Location / / Volume Laterality Blood specimen 07/27/2017 12:53 8 (specimen) AM EST 12:58 AM EST Resulting Agency Comment Spec In Lab Angela Swenson MD BLOOD BANK ORDERABLES Performing Organization Address City/[facility]/ZIP [place] [address] ABO/Rh Typing (07/27/2017 12:53 [...] MD BLOOD BANK ORDERABLES Performing Organization Address City/[facility] [place] [address] (ABNORMAL) Prothrombin Time (07/27/2017 [...] [place] [address] (ABNORMAL) Basic Metabolic Panel (non-fasting) (07/27/2017 12:53 AM EST) athologist Signature Glucose Lvl 95 65 - 199 [facility] mg/dL [facility] Comment: Diabetes: >=200 mg/dL plus symp toms BUN 37 (H) 10 - 20 mg/dL [facility] LABORATORY Creatinine 1.49 0.80 - 1.50 mg/dL [facility] LABORATORY Sodium 137 135 - 145 mmol/L [facility] LABORATORY Potassium 5.1 (H) 3.5 - 5.0 mmol/L [facility] [...] or in patients with acute kidney failure. 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
Routine documented in this encounter Care Teams Liner Machine Operator Relationship Specialty Start Date End Date Lovely Vicente MD PCP - General 04/16/[address] [place] [address] [address] [place] [address] documented as of this encounter
--- OUTSIDE RECORDS SUMMARY | 2022-03-23 09:40 | XMS_ITS | Encounter Summary ---
:1945 [place] [address] Care Team Providers Name Role Phone Lovely Vicente MD Primary Care Provider Reason for Visit Reason Comments Hospital Transfer cold foot post CABG Auth/Cert Specialty Diagnoses / Procedures Referred By Contact Refer red To Contact Diagnoses Critical lower limb ischemia Procedures NAYE IPI Referral ID Status Reason Start Date Expiration Date Visits Requ ested Visits Authorized [id number] 1 1 Encounter Details Date Type Department Care Team Description 07/20/2017 Hospital Encounter 4 Herminia Ibarra MD [facility] [place] [address] Critical lower limb [facility] Arik Clement MD [facility] [place] [address] [place] [address] Social History Tobacco Use Types Packs/Day Years [...] home. Important Studies and Lab Data: Labs: [facility] Lab Results Component Value Date INR 1.5 [...] For any problems or questions please call [phone] ZELDA Smith, brake repairer hydraulic Nurse Clinician For issues on weeknights after 5pm and weekends please call [phone] and ask for the Vascular Fellow retail and promotions coordinator. General Instructions None Future Appointments and Orders Future Appointments Provider Department Dept Phone 08/04/2017 1:00 PM Daniele Mooney [place] [facility] [place] [phone] 08/04/2017 2:15 PM Arik Clement MD Vascular Surgery at [place] [phone] 09/07/2017 3:00 PM MAYRA CHACON Lab [facility] [phone] 09/07/2017 4:00 PM Luz Prescott MD Endocrinology at [place] [phone] Future Orders Complete By Expires Arterial Duplex Leg, Unil [VAS32 Custom] 07/27/2017 (Approximate) 01/26/2018 Process Instructions: There is no in-house vascular crime lab analyst available on weeknights (5pm-8am), weekends, or holidays. IF THIS IS A REQUEST FOR AN EMERGENT STUDY DURING THOSE HOURS, please have the senior provider responsible for the patient page the Vascular Surgery Fellow/Senior Resident retail and promotions coordinator to discuss options. Scheduling Instructions: Questions: Indication for study/signs & symptoms: Right femoral PSA s/p cardiac cath Question to be answered: bloodflow to PSA Laterality: Right Is there a RIGHT LOWER EXTREMITY graft?: No Lower limb right segments: Common Femoral Is there a stent?: No At which location will this be performed?: [place] Referral to Home Health - at DISCHARGE [[id number] CPT(R)] As directed Process Instructions: Scheduling Instructions: Comments: DOCUMENTATION FOR VNA SERVICES (INCLUDING THOSE PATIENTS WITH MEDICARE COVERAGE REQUIRING HOME VNA SERVICES AND/OR HOSPICE SERVICES) PATIENT'S LOCATION: Gregory Fatima [address] [place] [address] [place] [phone] (home) Cell: Telephone Information: Geosciences Professor's Name: self In discussion with the attending physician, it is certified that this patient is under their care and that they, or a Nurse Practitioner,Clinical Nurse specialist or Physician Toaster Operator who is working directly with them, [...] CARE AGENCY: [facility] ([facility] [place] [facility]-is in [place] PHONE: [phone] FAX: [phone] Start of care: 24- 48 hours FOR [...] patient'sPCP: Lovely Vicente MD [address] [facility] [place] / [place] [address] All VNA agencies which cover the area [...] For any problems or questions please call [phone] ZELDA Smith, brake repairer hydraulic Nurse Clinician For issues on weeknights after 5pm and weekends please call [phone] and ask for the Vascular Fellow retail and promotions coordinator. documented in this encounter Medications at [...] referrals are placed. Patient requests referral to [facility] [place]. PHONE: [phone] FAX: [phone]. Expected date of discharge: 07/20/2017 . Referral routed to the Training Intern for matching with agency/vendor and to provide [...] referrals are placed. Patient requests referral to [facility] ([facility] [place] [facility]- is in [facility] PHONE: [phone] FAX: [phone]. Expected date of discharge: 07/20/2017 . Referral routed to the Training Intern for matching with agency/vendor and to provide any required information. Katina Pulliam RNstoker installer Janneth Lee MD - 07/20/2017 7:29 AM [...] Manny Mcknight MD at [facility] MAIN OR ??? PRO CABG, ARTERIAL, SINGLE N/A 07/07/2017 @CABG, USING ARTERIAL GRAFT;SINGLE ARTERIAL GRAFT (WRVU 33.75) performed by Yuan Retana MD at [facility] MAIN OR ??? PRO CABG, ARTERY-VEIN, TWO N/A 07/07/2017 @CABG, TWO VENOUS GRAFTS & ARTERIAL GRAFT (WRVU 7.93) performed by Yuan Retana MD at [facility] MAIN OR ??? PRO COLONOSCOPY, REMV LESN, SNARE 01/16/2014 COLONOSCOPY, POLYPECTOMY, REMOVAL LESION BY SNARE performed by Nohemi Jaimes MD at [facility] ENDOSCOPY ??? PRO ENDOSCOPY W/VIDEO-ASST VEIN HARVEST, CABG Right 07/07/2017 ENDOSCOPIC HARVEST VEIN(S) FOR CABG (WRVU 0.31) performed by Yuan Retana MD at [facility] MAIN OR ??? PRO THYROIDECTOMY 03/28/2013 THYROIDECTOMY, TOTAL OR COMPLETE performed by Manny Mcknight MD at [facility] MAIN OR Functional Status/Social Hx: Social History [...] -ISS -pain control Discussed with Vascular Fellow retail and promotions coordinator. Chris Valadez MD PGY2 Pager [phone] documented in this encounter ED Notes Annita Reaves MD - 07/20/2017 3:15 PM EST Emergency Department Gregory Fatima is a 72 y.o. 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 History of Present Illness [...] 04/05/2013 Hospitalizations Within the Past 30 Days: [facility] 07/05/17 Anticipated Length Of Stay (If known): [...] Coverage: Primary Insurance: MEDICARE Secondary Insurance: [employer] [facility] Prescription Coverage: See above Preferred Pharmacy: [facility] Other: N/A Primary Care Provider: Lovely Vicente MD [phone] Patient/Caregiver Goals of Treatment: Patient plans to return home when medically ready Potential Needs for Transition of Care: Rehab/SNF: N/A Home Health: [facility] ([facility] [place] [facility]-is in [place]) PHONE: [phone] FAX: [phone] DME: N/A Dialysis: N/A Community Resources: N/A Transportation: Patient family will transport Other: N/A Anticipated Barriers to Discharge/Special Considerations: None Plan: Patient plans to return home with home health services when medically ready A member of the Care Management team will continue to monitor progress, follow for continuity of care and assist with transition of care planning. Naty Pulliam, RN Pager: [phone] ED Triage - Rayna Weir RN - 07/20/2017 12:28 AM EST Pt transferred from [place] for blue right foot and painful toes. [...] Nobles MD [facility] [address] [place], [place] [address] (Wo rk) 05/28/2022 Appointment Cardiology Zulma Dolan MD [facility] [address] [place] [address] (Wo rk) 05/28/2022 Laboratory Appointment Lab 05/28/2022 Office Visit Cardiology Zulma Dolan MD [facility] [place] [address] Liz Poole PA [facility] [place] [address] 06/10/2022 Office Visit Dermatology Laura Scherer MD [facility] [address] [facility] [place] [address] (Wo rk) documented as of this encounter Procedures Procedure Name Priority Date/Time Associated Comments Diagnosis CRAB BACKER SCAN 09/02/2017 12:00 Res ults for this [...] TO LAB EST procedure are i n ([facility]) the results section. APTT STAT 07/20/2017 2:25 AM Results f or this EST procedure are i n the results section. PROTHROMBIN TIME STAT 07/20/2017 2:25 AM Resul ts for this EST procedure are i n the results section. BASIC METABOLIC PANEL STAT 07/20/2017 2:25 AM Results for this (NON-FASTING) EST procedure are in the results section. documented in this encounter Results SCAN DOC: CRAB BACKER (09/02/2017 12:00 AM EST) Narrative 09/02/2017 12:00 AM EST This result has an attachment that is no t available. Ordered by an unspecified provider. Scanning Provider MEDIA MGR SCAN EXT ORDR/RSLT POCT Glucose (07/20/2017 12:04 PM EST) P athologist Signature POC Glucose 189 65 - 199 [facility] mg/dL [facility] Comment: Supplemental ranges: <140 mg/dL before meals <180 mg/dL all other times of the day Specimen Anatomical Collection Method Collection Time Receive d Time (Source) Location / / Volume Laterality Blood specimen 07/20/2017 12:04 7 (specimen) PM EST 12:04 PM EST Arik Clement MD POINT OF CARE TEST ORDERABLE S Performing Organization Address City/State/[place] [address] (ABNORMAL) Differential, Automated (07/20/2017 10:34 AM EST) Patholo gist Method Time Signature Neutrophils % 84.3 % [facility] Neutr Abs (ANC) 14.27 (H) 1.70 - [facility] 6.10 [facility] x10(3)/[facility] LABORATORY Lymphocytes % 5.6 % [facility] Lymphocytes Abs 1.0 0.9 - 3.2 [facility] x10(3)/[facility] LABORATORY Monocytes % 6.1 % [facility] Monocyte Abs 1.0 (H) 0.3 - 0.9 [facility] x10(3)/[facility] LABORATORY Eosinophils % 2.4 % [facility] Eosinophils Abs 0.4 0.0 - 0.4 [facility] x10(3)/[facility] LABORATORY Basophils % 0.5 % [facility] Basophils Abs 0.1 0.0 - 0.1 [facility] x10(3)/[facility] LABORATORY Immature Gran % 1.10 % [facility] Comment: Immature granulocytes(IG's)percentage an d absolute count will include metamyelocytes, myelocytes, and promyelo cytes. Blood smears from CBCs yielding IG's will be scanned manually for concor danhaley. If this scan disagrees with the automated IG or if promyelocytes are not ed, a manual differential will be performed. Melisa Gran Abs 0.19 (H) 0.00 - 0.04 x10(3)/[facility] LABORATORY Specimen Anatomical Collection Method Collection Time Receive d Time (Source) Location / / Volume Laterality Blood specimen 07/20/2017 10:34 7 (specimen) AM EST 10:39 AM EST Resulting Agency Comment Spec In Lab Arik Clement MD HEMATOLOGY ORDERABLES Performing Organization Address City/State/[place] [address] (ABNORMAL) Hemogram (07/20/2017 10:34 AM EST) Analysis Performed At Patho logist Time Signature WBC 17.0 (H) 4.0 - 9.5 [facility] x10(3)/[facility] LABORATORY RBC 3.70 (L) 4.58 - [facility] 5.54 [facility] x10(6)/[facility] LABORATORY Hemoglobin 10.8 (L) 13.7 - [facility] 16.5 gm/dL [facility] Hematocrit 33.4 (L) 40.5 - [facility] 48.5 % [facility] MCV 90.3 82.9 - [facility] 93.1 [facility] LABORATORY MCH 29.2 27.5 - [facility] 32.1 pg [facility] MCHC 32.3 32.0 - [facility] 35.7 gm/dL [facility] Platelets 211 145 - 357 [facility] x10(3)/[facility] LABORATORY RDWSD 49.1 (H) 36.0 - [facility] 45.0 [facility] LABORATORY RDWCV 14.7 (H) 11.4 - [facility] 13.8 % [facility] MPV 9.2 7.6 - 12.9 [facility] LABORATORY nRBC % Auto 0.0 % [facility] nRBC Abs Auto 0.000 0.000 - [facility] 0.000 [facility] x10(3)/[facility] LABORATORY Specimen Anatomical Collection Method Collection Time Receive d Time (Source) Location / / Volume Laterality Blood specimen 07/20/2017 10:34 7 (specimen) AM EST 10:39 AM EST Resulting Agency Comment Spec In Lab Arik Clement MD HEMATOLOGY ORDERABLES Performing Organization Address City/[facility]/[place] [address] (ABNORMAL) APTT (07/20/2017 10:34 AM EST) P athologist Signature PTT 79 (H) 25 - 35 sec [facility] Comment: The recommended therapeutic range for fu ll dose, unfractionated heparin at [facility] is 80 ? 114 seconds. The use [...] Clement MD HEMATOLOGY ORDERABLES Performing Organization Address City/[facility]/ZIP Code Phon e Number [address] POCT Glucose (07/20/2017 7:41 AM EST) P athologist Signature POC Glucose 174 65 - 199 [facility] mg/dL [facility] Comment: Supplemental ranges: <140 mg/dL before meals <180 mg/dL all other times of the day Specimen Anatomical Collection Method Collection Time Receive d Time (Source) Location / / Volume Laterality Blood specimen 07/20/2017 7:41 AM 017 7:41 (specimen) EST AM EST Arik Clement MD POINT OF CARE TEST ORDERABLE S Performing Organization Address City/[facility]/ZIP Code Phon e Number [address] JULIAN, legs, multiple levels (07/20/2017 7:33 AM EST) Component Value Ref Test Analysis Performed At Patholo gist Range Method Time Signature VB Text Department: Vascular Surgery Lab VASCUBASE Report Patient: [id number] (GREGORY FATIMA) CPT: 72327 ICD10: I75.021;I99.8 Referring Physician: ARIK CLEMENT ?? [...] [facility] Range Method Time Signature VB Text Department: Vascular Surgery Lab VASCUBASE Report Patient: [id number] (GREGORY FATIMA) CPT: 81094 ICD10: I97.610;I99.8 Referring Physician: ARIK CLEMENT ?? [...] Signature POC Glucose 199 65 - 199 [facility] mg/dL [facility] Comment: Supplemental ranges: <140 mg/dL before meals <180 mg/dL all other times of the day Specimen Anatomical Collection Method Collection Time Receive d Time (Source) Location / / Volume Laterality Blood specimen 07/20/2017 3:41 AM 017 3:41 (specimen) EST AM EST Arik Clement MD POINT OF CARE TEST ORDERABLE S Performing Organization Address City/[facility]/[place] [address] Lactate, whole blood, send to lab ([facility]eb/CGP) (07/20/2017 2:25 AM EST) P athologist Signature Lactate WB 2.0 0.5 - 2.2 [facility] mmol/L [facility] Specimen Anatomical Collection Method Collection Time Receive d Time (Source) Location / / Volume Laterality Blood specimen Venous Draw / 07/20/2017 2:25 AM 2016 2:37 (specimen) Unknown EST AM EST Resulting Agency Comment Spec In Lab Zulma Samuel MD CHEMISTRY ORDERABLES Performing Organization Address [facility]/[place] [address] (ABNORMAL) APTT (07/20/2017 2:25 AM EST) P athologist Signature PTT 36 (H) 25 - 35 sec [facility] Comment: The recommended therapeutic range for fu ll dose, unfractionated heparin at [facility] is 80 ? 114 seconds. The use [...] Reaves MD HEMATOLOGY ORDERABLES Performing Organization Address City/[facility]/[place] [address] (ABNORMAL) Prothrombin Time (07/20/2017 2:25 AM EST) P athologist Signature PT 17.7 (H) 11.8 - 14.0 [facility] [...] Organization Address City/State/[place] [address] (ABNORMAL) Basic Metabolic Panel (non-fasting) (07/20/2017 2:25 AM EST) athologist Signature Glucose Lvl 187 65 - 199 [facility] mg/dL [facility] Comment: Diabetes: >=200 mg/dL plus symp toms BUN 35 (H) 10 - 20 mg/dL [facility] Creatinine 1.51 (H) 0.80 - 1.50 mg/dL [facility] Sodium 134 (L) 135 - 145 mmol/L [facility] Potassium Not Perf 3.5 - 5.0 mmol/L [facility] Comment: Specimen hemolyzed. Called by: [facility], Read back by: Chitra Orantes, Date/Time:07/20/17 03:05. Please note: ??Patients with WBC >100,00 0 may have falsely elevated Potassium levels. ??For accurate Potassium quantif ication in these patients send serum separator tube (gold top) for subsequent determinations. ??Contact the Clinical Chemistry Laboratory if there are any qu estions. Chloride 92 (L) 98 - 107 mmol/L [facility] CO2 29 22 - 31 mmol/L [facility] Anion Gap 13 5 - 15 mmol/L [facility] Calcium 8.6 8.5 - 10.5 mg/dL [facility] Estimated GFR 46 (L) >=60 [facility] Comment: The reported eGFR should be multiplied b y 1.2 for patients. The MDRD is not an appropriate measure o f renal function for patients with body mass extremes or in patients with acute kidney failure. http://AddThis/DHnkdep http://AddThis/DHMCnkf Specimen Anatomical Collection Method Collection Time Receive d Time (Source) Location / / Volume Laterality Blood specimen 07/20/2017 2:25 AM 017 2:33 (specimen) EST AM EST Resulting Agency Comment Spec In Lab Annita Reaves MD CHEMISTRY ORDERABLES Performing Organization Address City/State/[place] [address] documented in this encounter [...] 0.5 mg (CANCELED) 0145 (Given - Provider: Ryana Weir RN) 0.5 mg, Intravenous, EVERY 30 [...] to med 0-8,000 Units, Intravenous, BOLUS PER [facility] PROTOCOL, Starting Wed07/20/17 at 0424, Until [...]
Routine documented in this encounter Care Teams Surgical Garment Inspector Relationship Specialty Start Date End Date Lovely Vicente MD PCP - General 04/16/[address] [place] [address] [address] [place] [address] documented as of this encounter
--- OUTSIDE RECORDS SUMMARY | 2022-03-23 09:40 | XMS_ITS | Encounter Summary ---
:1945 Author Organization [facility] [place] [address] Care Team Providers Name Role Phone Lovely Vicente MD Primary Care Provider Encounter Details Date Type Department Care Team Description 07/29/2017 Transcribe Orders Laboratory Lovely Vicente MD [address] [phone] [place], [place] [address] (Mikayla alcaraz) Social History Tobacco Use Types [...] MD [facility] DR [address] [place], [place] [address] (Wo rk) 05/28/2022 Appointment Cardiology Zulma Dolan MD [facility] [address] [place] [address] (Wo rk) 05/28/2022 Laboratory Appointment Lab 05/28/2022 Office Visit Cardiology Zulma Dolan MD [facility] [place] [address] Liz Poole PA [facility] [place] [address] 06/10/2022 Office Visit Dermatology Laura Scherer MD [facility] ER [address] [place], [place] [address] (Wo rk) documented as of this encounter Visit Diagnoses Not on filedocumented in this encounter Care Teams Membership Sales Advisor Relationship Specialty Start Date End Date Lovely Vicente MD PCP - General 04/16/[address] [place] [address] documented as of this encounter
--- OUTSIDE RECORDS SUMMARY | 2022-03-23 09:40 | XMS_ITS | Encounter Summary ---
:1945 Author Organization [facility] [place] [address] Care Team Providers Name Role Phone Lovely Vicente MD Primary Care Provider Encounter Details Date Type Department Care Team Description 08/02/2017 Telephone Pain Management at [place], [place] [address] Social History Tobacco Use Types Packs/Day [...] Management Center Preauthorization Request Patient: Don Fatima [id number] Fax received from [facility] requesting we obtain prior authorization for Lidocaine patches prescribed by Barbra Soares APRN. RX insurance plan: [employer] insurance telephone: [phone] Patient Diagnosis: right foot pain secondary to PVD and ischemia Previous medications attempted: Tylenol, Tramadol, Dilaudid The following action was taken after discussion with the district manager postal service: _x_ pharmacy informed Authorized dosage or amount: 5% on patch on for 12 hours, then remove for 12 hours. Angeles Rodrigez, RN documented in this encounter Plan of Treatment Upcoming Encounters Date Type Specialty Care Team Description 03/26/2022 Office Visit Cardiology Vitaliy Nobles MD [facility] [address] [place], [place] [address] (Wo rk) 05/28/2022 Appointment Cardiology Zulma Dolan MD [facility] [place], [place] [address] (Wo rk) 05/28/2022 Laboratory Appointment Lab 05/28/2022 Office Visit Cardiology Zulma Dolan MD [facility] [place] [address] Liz Poole PA [facility] [place] [address] 06/10/2022 Office Visit Dermatology Laura Scherer MD [facility] [address] [place], [place] 0[address] (Wo rk) documented as of this encounter Visit Diagnoses Not on filedocumented in this encounter Care Teams Forensics Team Director Relationship Specialty Start Date End Date Lovely Vicente MD PCP - General 04/16/[address] [place] [address] documented as of this encounter
--- OUTSIDE RECORDS SUMMARY | 2022-03-23 09:40 | XMS_ITS | Encounter Summary ---
:1945 [place] [address] Care Team Providers Name Role Phone Lovely Vicente MD Primary Care Provider Encounter Details Date Type Department Care Team Description 07/29/2017 Hospital Encounter Vascular Lab at [facility] monica Huber lower limb [facility] [place] [phone] Social History Tobacco Use Types Packs/Day Years [...] Team Description 03/26/2022 Office Visit Cardiology Vitaliy Nobels MD [facility]ARDIOLOGY [place], [place] [address] (Wo rk) 05/28/2022 Appointment Cardiology Zulma Dolan MD [facility] [place], [place] [address] (Wo rk) 05/28/2022 Laboratory Appointment Lab 05/28/2022 Office Visit Cardiology Zulma Dolan [place] [address] Liz Poole PA [facility] [place] [address] 06/10/2022 Office Visit Dermatology Laura Scherer MD [facility] [address] [place], [place] 0[address] (Wo rk) documented as of this encounter Visit Diagnoses Diagnosis Critical lower limb ischemia Unspecified circulatory system disorder documented in this encounter Care Teams Cylinder Worker Relationship Specialty Start Date End Date Lovely Vicente MD PCP - General 04/16/[address] [place] [address] documented as of this encounter
--- OUTSIDE RECORDS SUMMARY | 2022-03-23 09:40 | XMS_ITS | Encounter Summary ---
:1945 Author Organization [facility] [place] [address] Care Team Providers Name Role Phone Lovely Vicente MD Primary Care Provider Encounter Details Date Type Department Care Team Description 07/24/2017 Telephone Vascular Surgery Melba Bob [facility] [place] [address] [facility] [phone] VASCULAR SURGERY [place], [place] [address] (Wo rk) Social History [...] was discharged on Coumadin. ??He presented to [facility] on 07/20 with mottled toes on the [...] Nobles MD [facility] [address] [place] [address] (Wo rk) 05/28/2022 Appointment Cardiology Zulma Dolan MD [facility] [address] [place] [address] (Wo rk) 05/28/2022 Laboratory Appointment Lab 05/28/2022 Office Visit Zulma Garrison MD [facility] [place] [address] Liz Poole PA [facility] [place] [address] 06/10/2022 Office Visit Dermatology Laura Scherer MD [facility] ER DR [address] [place], [place] [address] (Wo rk) documented as of this encounter Visit Diagnoses Not on filedocumented in this encounter Care Teams Attendant Arcade Relationship Specialty Start Date End Date Lovely Vicente MD PCP - General 04/16/[address] [place] [address] documented as of this encounter
--- OUTSIDE RECORDS SUMMARY | 2022-03-23 09:40 | XMS_ITS | Encounter Summary ---
:1945 Author Organization [facility] [place] [address] Care Team Providers Name Role Phone Lovely Vicente MD Primary Care Provider Reason for Visit Reason Comments Pain Management Ankle Pain Toe Pain Encounter Details Date Type Department Care Team Description 07/30/2017 Office Visit Pain Management at [facility], Per ipheral neuropathy [place] PRE BILLING CLINICIAN due to ischemia [facility] [address], [place], [place] [phone] Social History Tobacco Use Types Packs/Day Years [...] Soares APRN - 07/30/2017 1:45 PM EST [facility] [place] [address] Phone: PAIN MANAGEMENT NEW PATIENT / CONSULTATION NOTE DATE OF VISIT 07/30/2017 Patient Don Fatima 1945 REFERRING PROVIDER Lovely Vicente MD [address] [place] [id number] PRIMARY CARE PROVIDER Lovely Vicente MD CHIEF [...] much relief PAST THERAPIES: Nothing MEDICATIONS The [place] Prescription Monitoring Program was checked [...] SETUP performed by Manny Mcknight MD at [facility] OR ??? PRO CABG, ARTERIAL, SINGLE N/A 07/07/2017 @CABG, USING ARTERIAL GRAFT;SINGLE ARTERIAL GRAFT (WRVU 33.75) performed by Yuan Retana MD at [facility] OR ??? PRO CABG, ARTERY-VEIN, TWO N/A 07/07/2017 @CABG, TWO VENOUS GRAFTS & ARTERIAL GRAFT (WRVU 7.93) performed by Yuan Retana MD at [facility] OR ??? PRO COLONOSCOPY, REMV LESN, SNARE 01/16/2014 COLONOSCOPY, POLYPECTOMY, REMOVAL LESION BY SNARE performed by Nohemi Jaimes MD at [facility] ENDOSCOPY ??? PRO ENDOSCOPY W/VIDEO-ASST VEIN HARVEST, CABG Right 07/07/2017 ENDOSCOPIC HARVEST VEIN(S) FOR CABG (WRVU 0.31) performed by Yuan Retana MD at [facility] OR ??? PRO THYROIDECTOMY [...] referral, Lovely Vicente MD [address] [place] [id number]. [facility], MSN, [place]QU[place] DIRECTOR-BC, PRE BILLING CLINICIAN Nurse Practitioner [facility] documented in this encounter Plan of Treatment Upcoming Encounters Date Type Specialty Care Team Description 03/26/2022 Office Visit Cardiology Vitaliy Nobles MD [facility] CARDIOLOGY [place], [place] [address] (Wo rk) 05/28/2022 Appointment Cardiology Zulma Dolan MD [facility] [place], [place] [address] (Wo rk) 05/28/2022 Laboratory Appointment Lab 05/28/2022 Office Visit Cardiology Zulma Dolan MD [facility] [place] [address] Liz Poole PA [facility] [place] [address] 06/10/2022 Office Visit Dermatology Laura Scherer MD [facility] DR [address] [place], [place] [address] (Wo rk) documented as of this encounter Visit Diagnoses Diagnosis 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
--- OUTSIDE RECORDS SUMMARY | 2022-03-23 09:40 | XMS_ITS | Encounter Summary ---
:1945 [place] [address] Care Team Providers Name Role Phone Lovely Vicente MD Primary Care Provider Encounter Details Date Type Department Care Team Description 07/16/2017 Telephone Endocrinology at [facility] C Manuela Holliday, [facility] [place] [address] ENDOCRINOLOGY DEPT [phone] [place], [place] [address] (Wo rk) Social History Tobacco [...] Nobles MD [facility] DR [address]OM[address] [place], [place] [address] (Wo lissa) 05/28/2022 Appointment Cardiology Zulma Dolan MD [facility] [address] [place] [address] (Wo rk) 05/28/2022 Laboratory Appointment Lab 05/28/2022 Office Visit Cardiology Zulma Dolan [place] [facility] [place] [address] Liz Poole PA [facility] [place] [address] 06/10/2022 Office Visit Dermatology Laura Scherer MD [facility] DR [address] [place], [place] [address] (Wo rk) documented as of this encounter Visit Diagnoses Not on filedocumented in this encounter Care Teams Broaching Machine Set Up Operator Relationship Specialty Start Date End Date Lovely Vicente MD PCP - General 04/16/[address] [place] [address] documented as of this encounter
--- OUTSIDE RECORDS SUMMARY | 2022-03-23 09:40 | XMS_ITS | Encounter Summary ---
:1945 [place] [address] Care Team Providers Name Role Phone Lovely Vicente MD Primary Care Provider Encounter Details Date Type Department Care Team Description 08/03/2017 Hospital Encounter Radiology Library at [place], Tommy Mijares [facility] [place] [address] VASCULAR SURGERY [phone] [place], [place] [address] (Wo rk) Social History Tobacco [...] Nobles MD [facility] DR TADEO [place], [place] [address] (Wo rk) 05/28/2022 Appointment Cardiology Zulma Dolan MD [facility] Dr [place], [place] [address] (Wo rk) 05/28/2022 Laboratory Appointment Lab 05/28/2022 Office Visit Cardiology Zulma Dolan MD [facility] [place] [address] Liz Poole PA [facility] [place] [address] 06/10/2022 Office Visit Dermatology Laura Scherer MD [facility] [address] [place], [place] [address] (Wo rk) documented [...] [facility] [place] 2[place] - 08/03/2017 6:01 PM EST This exam is for storage only and is aut o-finalizing. Arik Clement MD IMG FILM LIBRARY ORDERABLES Performing Organization Address City/State/ZIP Code Phon e Number [place], [place] documented in this encounter Visit Diagnoses Diagnosis Pain Generalized pain documented in this encounter Care Teams Straight Knife Machine Cutter Relationship Specialty Start Date End Date Lovely Vicente MD PCP - General 04/16/[address] [place] [address] documented as of this encounter
--- OUTSIDE RECORDS SUMMARY | 2022-03-23 09:40 | XMS_ITS | Encounter Summary ---
:1945 Author Organization [facility] [place] [address] Care Team Providers Name Role Phone Lovely Vicente MD Primary Care Provider Encounter Details Date Type Department Care Team Description 07/29/2017 Transcribe Orders Laboratory Lovely Vicente MD [address] [phone] [place], [place] [id number] (Mikayla alcaraz) Social History Tobacco Use Types [...] MD [facility] [address] [place] [place], [place] [address] (Wo rk) 05/28/2022 Appointment Cardiology Zulma Dolan MD [facility] [address] [place] [address] (Wo rk) 05/28/2022 Laboratory Appointment Lab 05/28/2022 Office Visit Cardiology Zulma Dolan MD [facility] [place] [address] Liz Poole PA [facility] [place] [address] 06/10/2022 Office Visit Dermatology Laura Scherer MD [facility] ER [address] [place], [place] [address] (Wo rk) documented as of this encounter Visit Diagnoses Not on filedocumented in this encounter Care Teams Heat Reader Relationship Specialty Start Date End Date Lovely Vicente MD PCP - General 04/16/[address] [place] [address] documented as of this encounter
--- OUTSIDE RECORDS SUMMARY | 2022-03-23 09:41 | XMS_ITS | Encounter Summary ---
:1945 Author Organization [facility] [place] [address] Care Team Providers Name Role Phone Lovely Vicente MD Primary Care Provider Reason for Referral Consultation (Routine) - Closed Specialty Diagnoses / Referred By Contact Referred To Contact Procedures Cardiac Rehabilitation Diagnoses S/P CABG x 3 Yuan Webber, Cardiac Rehab, [address] [place] CARDIOTHORACIC [address] [place] [address] Referral ID Status Reason Start Date Expiration Date Visits V isits Requested Authorized [id number] Closed Consult, 07/14/2017 01/10/2018 36 36 Test & Treat Reason for Visit Auth/Cert Specialty Diagnoses / Procedures Referred By Contact Refer red To Contact Diagnoses STEMI (ST elevation myocardial infarction) NSTEMI STEMI Procedures CARDIAC CATHETERIZATION NAYE IPI Referral ID Status Reason Start Date Expiration Date Visits Requ ested Visits Authorized [id number] 1 1 Encounter Details Date Type Department Care Team Description 07/05/2017 - Hospital Encounter Cardiac Special Daphne Shahid MD [facility] [place] [address] Non-ST elevation myocardial infarction ( NSTEMI); 07/14/2017 Care Unit Yuan Preciado MD [facility] [place] [address] S/P CABG x 3 [place] [id number] Social History Tobacco Use Types Packs/Day Years [...] Patient Age: 72 y.o. Birthdate: 1945 Language: Mosotho Race: White Ethnicity: Not nor Admit Date: [...] , @ 1:20p Patient to follow-up with Newspaper Photojournalist/heart failure team in one week. An appointment will be made for you. You may call [phone] Patient to follow-up with Cardiac Surgery, Dr. Yuan Webber, in ~ 4 weeks with CXR, EKG. Inpatient Provider Contact Information: [facility] Section of Cardiac Surgery [facility] [address] FAX [phone] Discharge Diagnoses (Hospital Problems) Primary Diagnoses: CAD [...] SETUP performed by Manny Mkcnight MD at [facility] MAIN OR ??? PRO CABG, ARTERIAL, SINGLE N/A 07/07/2017 @CABG, USING ARTERIAL GRAFT;SINGLE ARTERIAL GRAFT (WRVU 33.75) performed by Yuan Webber MD at [facility] MAIN OR ??? PRO CABG, ARTERY-VEIN, TWO N/A 07/07/2017 @CABG, TWO VENOUS GRAFTS & ARTERIAL GRAFT (WRVU 7.93) performed by Yuan Webber MD at [facility] MAIN OR ??? PRO COLONOSCOPY, REMV LESN, SNARE 01/16/2014 COLONOSCOPY, POLYPECTOMY, REMOVAL LESION BY SNARE performed by Nohemi Jaimes MD at [facility] ENDOSCOPY ??? PRO ENDOSCOPY W/VIDEO-ASST VEIN HARVEST, CABG Right 07/07/2017 ENDOSCOPIC HARVEST VEIN(S) FOR CABG (WRVU 0.31) performed by Yuan Webber MD at [facility] MAIN OR ??? PRO THYROIDECTOMY 03/28/2013 THYROIDECTOMY, TOTAL OR COMPLETE performed by Manny Mcknight MD at [facility] MAIN OR Prior To Admission Medications Prescriptions Prior to Admission Medication Sig Dispense Refill Last Dose ??? levothyroxine (SYNTHROID) 175 mcg Tablet Take 1 tablet by mouth daily. 90 tablet 3 07/05/2017 [id number] ??? ascorbic acid, vitamin C, (VITAMIN C) [...] Course: Gregory Hoang was admitted to [facility] on 07/05/2017 via the Cardiology Service. During his hospital course, he was taken emergently to the general laborer for an ongoing STEMI. An IABP [...] not take or discontinue any prescription or bmnk-cxq-uiybjqi medications without asking your doctor or pharmacist [...] your insulin doses adjusted. [facility] Endocrine clinic office Discharge Instructions: Call your doctor if: You have a fever of greater than 101 degrees, shaking chills, if you develop redness or drainage from your incision sites, or if you have questions. Please call your surgeon's office if you have any discharge or drainage from your chest incision. Your surgeon, Dr. Yuan Webber and/or the Cardiac Surgery Physician Binder Layer Team may be reached at . Weight: [...] Dr. Yuan Webber. You may use a [place] Track or treadmill but avoid any pulling [...] with the surgeon. Do not ride motorcycles, [employer]'s tractors or horses. Avoid the use of [...] , @ 1:20p Patient to follow-up with Newspaper Photojournalist/heart failure team in one week. Appointment will be made for you. You may call [phone] Patient to follow-up with Cardiac Surgery, Dr. Yuan Webber, in ~ 4 weeks with CXR, EKG. Cardiac Rehabilitation: Gregory Hoang was seen today regarding participation in the outpatient Phase 2 Cardiac Rehabilitation at [facility]. The patient agrees to a referral to this program. The referral will be sent at discharge and the patient should be contacted by the Program within 1- 2 weeks from discharge. ?? Future Appointments and Orders Future Appointments Provider Department Dept Phone 09/07/2017 3:00 PM LAB, THREE L Lab 3L [facility] [phone] 09/07/2017 4:00 PM Luz Prescott MD Endocrinology at [place] [phone] Future Orders Complete By Expires EKG 12 Lead [EKG1 Custom] 08/14/2017 02/13/2018 Process Instructions: Scheduling Instructions: Questions: Which location will this be performed?: [place] Is a rhythm strip needed?: No If EKG Reason is Pre-op Evaluation, indicate diagnosis for surgery.: XR Chest PA & Lateral (Generic) [[id number] [id number] Custom] 08/14/2017 02/13/2018 Process Instructions: Scheduling Instructions: Questions: Where will study be performed?: [place] [facility] Portable exam?: Reason for exam and clinical history: CABG x 3 Other pertinent information: Stat read required?: Date of injury if applicable: Requested Time: Referral to Cardiac Rehab [CXQ243 Custom] As directed Process Instructions: If no progress note charted, please enter Clinical details in comments. Scheduling Instructions: Questions: My question or request is: s/p CABG. Cardiac rehab at [facility] Referral to Home Health - at DISCHARGE [PKL9389 CPT(R)] As directed Process Instructions: Scheduling Instructions: Comments: DOCUMENTATION FOR VNA SERVICES (INCLUDING THOSE PATIENTS WITH MEDICARE COVERAGE REQUIRING HOME VNA SERVICES AND/OR HOSPICE SERVICES) PATIENT'S LOCATION: Gregory Hoang [address] [place] [address] [place] [id number] (home) Telephone Information: Hooker Machine Tender's Name: self In discussion with the attending physician, it is certified that this patient is under their care and that they, or a Nurse Practitioner, or Physician Binder Layer who is working directly with them, had [...] (Central Intake for [place] [facility] in [place]) PHONE: [phone] FAX: [phone] RN orders: Cardiopulmonary assessment, incisional assessment, assess vital signs, assessment of rehab progress, medication management and effectiveness, home safety evaluation. Please draw INR if indicated and send result to:Dr Vicente [phone] PT ORDERS: Continue rehab for endurance, gait stability and strength with mobility and transfers. Home safety evaluation. Home exercise program if appropriate. Start of Care Date:24-48 hours after discharge SPECIAL INSTRUCTIONS: For any follow up questions, needs, or issues please call the Cardiac Surgery Office at [phone] FOR MEDICARE ONLY: (please delete this section [...] [facility] [address] FAX [phone] Date: 07/14/2017 CC: MD Ivania Cr Betsy, PA [address] [place] [phone] documented in this encounter Discharge Instructions Discharge [...] your insulin doses adjusted. [facility] Endocrine clinic office Patient InstructionsStMartha [...] not take or discontinue any prescription or cagh-fcn-sxzncsz medications without asking your doctor or pharmacist [...] juice or regular (not diet) soda 6 Medios small box of raisins 4 glucose tablets [...] your insulin doses adjusted. [facility] Endocrine clinic office ? Discharge [...] Yuan Webber and/or the Cardiac Surgery Physician Binder Layer Team may be reached at . ?? [...] Dr. Yuan Webber. You may use a [place] Track or treadmill but avoid any pulling [...] with the surgeon. Do not ride motorcycles, [employer] tractors or horses. Avoid the use of [...] @ 1:20p ?? Patient to follow-up with Newspaper Photojournalist/heart failure team in one week. An appointment has been made for you, you can call [phone] ?? Patient to follow-up with Cardiac Surgery, Dr. Yuan Webber, in ~ 4 weeks with CXR, EKG. ? Cardiac Rehabilitation: Gregory Hoang??was seen today regarding participation in the outpatient Phase 2 Cardiac Rehabilitation at [facility]. ?? The patient agrees to a referral to this program.? The referral will be sent at discharge and the patient should be contacted by the Program within 1- 2 weeks from discharge. ? Future Appointments and Orders Future Appointments Provider Department Dept Phone ?? 09/07/2017 3:00 PM LAB, THREE L Lab 3L [facility] [phone] ?? 09/07/2017 4:00 PM Luz Prescott MD Endocrinology at [place] [phone] Future Orders Complete By Expires ?? EKG 12 Lead [EKG1 Custom] 08/14/2017 02/13/2018 ?? Process Instructions: ? Scheduling Instructions: ? Questions: ? Which location will this be performed?: [place] ?? Is a rhythm strip needed?: No ?? If EKG Reason is Pre-op Evaluation, indicate diagnosis for surgery.: ?? XR Chest PA & Lateral (Generic) [[id number] Custom] 08/14/2017 02/13/2018 ?? Process Instructions: ? Scheduling Instructions: ? Questions: ? Where will study be performed?: [place] [facility] ?? Portable exam?: ?? Reason for exam and clinical history: CABG x 3 ?? Other pertinent information: ?? Stat read required?: ?? Date of injury if applicable: ?? Requested Time: ?? Referral to Cardiac Rehab [QDO224 Custom] As directed ? Process Instructions: ?? If no progress note charted, please enter Clinical details in comments. ?? Scheduling Instructions: ? Questions: ? My question or request is: s/p CABG. Cardiac rehab at [facility] ? Arrangements for VNA/home care: As [...] RN - 07/14/2017 2:34 PM EST The patient/it sales representative has been provided a list of Home Health Agencies/DME vendors which serve their preferred geographic area. A letter describing our affiliations was reviewed with them and theywere educated about their right to choose where referrals are placed. Patient requests referral to [facility] PHONE: [phone] FAX: [phone] Expected date of discharge: 07/14 Referral routed to the Distribution A Class Lineman for matching with agency/vendor and to provide [...] your insulin doses adjusted. [facility] Endocrine clinic office Kathie Carrera APRN [facility] Endocrinology Diabetes Management Pager [phone] minutes of this 35 minute visit was spent with the patient in counseling on diabetes and treatment plan, reviewing all glucose and insulin data as well as relevant laboratory results with the patient, and coordination of care on the inpatient unit including nursing and primary team. Zulma Andres, RN - 07/14/2017 10:30 AM EST The patient/it sales representative has been provided a list of Home Health Agencies/DME vendors which serve their preferred geographic area. A letter describing our affiliations was reviewed with them and theywere educated about their right to choose where referrals are placed. Patient requests referral to : Yasmani Munguia ([facility] [place] [facility]-is in [place]) PHONE: [phone] FAX: [phone]. Expected date of discharge: 07/14/17 Referral routed to the Distribution A Class Lineman for matching with agency/vendor and to provide [...] hours. If BG remains greater than 240, [id number] units (no more than three times) &??call [...] #6 s/p CABG X3. FSBG 80 at [place], reports no symptoms but did drink some [...] follow Katerin Azul APRN [facility] Endocrinology Diabetes Management Pager [phone] minutes of this 25 minute visit [...] of infiltration/extravasation Discussed plan of care with PERSONAL SECRETARY and RN. Elevate exrtemity and apply intermittent Warm compresses. Name of MD contacted Dr. Shaw Brown 07/13/2017 @ 0629 Name of RN contacted Ale Rangel RN Name of Pharmacist if consulted NA Name of Plastics MD ( if consulted) NA (Mandatory photo for infiltrations/ extravasations scoring a stage 2 or greater, but recommended forstage 1)( include measuring tape and identifier in the photo) COAT PRESSER CARING FOR THIS PATIENT WILL CONTINUE TO [...] measuring tape and identifier in the photo) COAT PRESSER CARING FOR THIS PATIENT WILL CONTINUE TO [...] AM EST Cardiac Surgery Progress Note: ID: [id number] 72 year old male POD#6 s/p CABGx3 [...] discharge. ?? I have met with the patient/it sales representative to discuss discharge planning needs. I have provided the [facility], Office of Care Management letter from the Java Manager pertaining to rehab referrals. I have also provided a letter describing our affiliations within the [facility] and educated them about their right to choose where referrals are placed. ?? I reviewed the different levels of rehab including SNF, swing, acute and LTAC with the patient/it sales representative. ?? The patient/it sales representative has been provided a list of facilities within their preferred geographic area. ?? I have requested that the patient/it sales representative provide at least three choices for referral. ?? The patient/it sales representative have requested referrals to: ?? 1. . ?? 2. [facility] ?? 3. More to be entered ?? Expected date of discharge: 07/14 Note routed to Distribution A Class Lineman who will communicate referrals to facilities and [...] hours. If BG remains greater than 240, [id number] units (no more than three times) & [...] continue to follow Katerin Patel. STACIE Azul [facility] Endocrinology Diabetes Management Pager [phone] 20 minutes of this 35 minute visit was spent with the patient in counseling on diabetes and treatment plan, reviewing all glucose and insulin data as well as relevant laboratory results with the patient, and coordination of care on the inpatient unit including nursing and primary team. Makayla Stevenson APRN - 07/12/2017 9:52 AM EST Cardiac Surgery Progress Note: ID: [id number] 72 year old male POD#5 s/p CABGx3 [...] 07/11/2017 7:18 PM EST Patient arrived from [facility]. VSS. MSI dressing pulled off [...] hours. If BG remains greater than 240, [id number] units (no more than three times) & [...] AM EST Cardiac Surgery Progress Note: ID: [id number] 72 year old male POD#4 s/p CABGx3 [...] please consider alternative means of nutrition support. VIVINA Butt Nell Ontiveros RN - 07/11/2017 7:15 [...] AM EST Cardiac Surgery Progress Note: ID: [id number] 72 year old male POD#3 s/p CABGx3 [...] Gas) No results found for: PHART, PO2ART, HEZ7FWK Assessment/Plan: 72 year old male POD#3 s/p [...] Encounter Note Patient Name: Gregory Hoang : [id number] MR#: [id number] Admit Date: 07/05/2017 4:20 PM Hospital Day 4 days Narrative: Patient was sitting in chair, hugging heart pillow, opened his eyes, nodding to come into room Assessment: Patient was sleepy. Intervention and Outcome: Introduced database technician services and patient reached his hand out in appreciation. Follow-up: Rn X Ray remains available for support. Time in Direct [...] AM EST Report given to medical staff services coordinator to cover care Maddison Cee PA - 07/09/2017 9:00 AM EST Cardiac Surgery Progress Note: ID: [id number] 72 year old male POD#2 s/p CABGx3 [...] Surgeon on rounds. Signed: STEPHANIE Iqbal [facility] Section of Cardiac Surgery Date: 07/09/2017 Magnolia Santiago [facility] - 07/09/2017 1:33 AM EST [...] at 0556. Will continue to monitor pt. Grecthen Cummings PT - 07/08/2017 3:34 PM EST PT Note PT referral received. Pt's chart reviewed. IABP in place. Will follow-up for evaluation as approp when IABP d/c'ed. Gretchen Carolina, PT Pager [phone] Maddison Cee PA - 07/08/2017 11:27 AM EST Cardiac Surgery Progress Note: ID: [id number] 72 year old male POD#1 s/p CABGx3 [...] Surgeon on rounds. Signed: STEPHANIE Iqbal [facility] Section of Cardiac Surgery Date: [...] SEGAL MD 07/08/2017 Jay Munoz [facility] - 07/08/2017 4:33 AM EST [...] in place in R femoral. No hematoma. ASSOCIATE PROFESSOR OF BIBLICAL STUDIES- Intact Psych- Anxious Skin- Dry, no peripheral [...] intact. IABP in place in R femoral. ASSOCIATE PROFESSOR OF BIBLICAL STUDIES- Intact Psych- Anxious Skin- Dry, no peripheral [...] note for details. DAPHNE SHAHID MD Pager [phone] Jet Mckenna MD - 07/05/2017 6:48 PM EST Preliminary Cardiac Catheterization Procedure Note: Procedure(s) performed: Left heart cath, IABP insertion Access: Right SUPERVISOR BAKING-->8fr IABP A time-out was conducted prior to [...] Heparin gtt maintained. Pt transferred to general laborer. documented in this encounter H&P Notes Daphne Shahid MD - 07/05/2017 6:08 PM EST CARDIOLOGY HISTORY & PHYSICAL EXAM Date of Admission: 07/05/2017 ( Hospital Day 0 days ) Responsible Attending: Daphne Shahid MD PCP: Lovely Vicente MD PCP#: [phone] Patient Active Problem List Diagnosis Code ??? [...] significant valvular disease. Taken to the general laborer urgently for ongoing STEMI. [facility] Labs: INR 1.0 WBC 5.88 Hgb [...] I/O - s/p lasix in the general laborer, redose to aim net neg 1L [...] - ISS - hold metformin - f/u [facility] #Home Meds - continue levothyroxine 175mcg - CPAP at night # Routine - DVT PPx: heparin drip - Diet: NPO - Code Status: FULL - Dispo: [facility] Cedric Bey MD Internal Medicine, PGY-2 Cardiology S1, Team Pager # [phone] CARDIOLOGY ATTENDING NOTE Patient: Gregory Hoang Date [...] amenable for PCI. DAPHNE SHAHID MD Pager [phone] documented in this encounter Miscellaneous Notes Consult Note - Daphne Shahid MD - 07/14/2017 11:46 AM EST Heart Failure Service Inpatient Consult Note Gregory Hoang Date of : 1945 Age: 72 y.o. Today's date: 07/14/17 PCP: Lovely Vicente MD INTEGRITY DIRECTOR: None Place of Service: [facility] Reason for Consult: Dr. Webber has requested [...] [facility] MAIN OR ??? PRO CABG, ARTERIAL, SINGLE N/A 07/07/2017 @CABG, USING ARTERIAL GRAFT;SINGLE ARTERIAL GRAFT (WRVU 33.75) performed by Yuan Webber MD at [facility] MAIN OR ??? PRO CABG, ARTERY-VEIN, TWO N/A 07/07/2017 @CABG, TWO VENOUS GRAFTS & ARTERIAL GRAFT (WRVU 7.93) performed by Yuan Webber MD at [facility] MAIN OR ??? PRO COLONOSCOPY, REMV LESN, SNARE 01/16/2014 COLONOSCOPY, POLYPECTOMY, REMOVAL LESION BY SNARE performed by Nohemi Jaimes MD at [facility] ENDOSCOPY ??? PRO ENDOSCOPY W/VIDEO-ASST VEIN HARVEST, CABG Right 07/07/2017 ENDOSCOPIC HARVEST VEIN(S) FOR CABG (WRVU 0.31) performed by Yuan Webber MD at [facility] MAIN OR ??? PRO THYROIDECTOMY 03/28/2013 THYROIDECTOMY, TOTAL OR COMPLETE performed by Manny Mcknight MD at [facility] MAIN OR Outpt Meds: Current Outpatient [...] following studies: EKG 07/14/17: NSR 75 bpm, CAUSTIC LOADER anterior infarct, LAD CXR 07/11/17: FINDINGS: Sternotomy wires. The patient has been extubated, left chest tube removed, and Marenisco-Suzi catheter removed since the 07/07/2017 study. Atelectasis [...] was discussed with Zehra. Jaden Kelley MD Wire Brusher Pager [phone] CARDIOLOGY ATTENDING NOTE Patient: Gregory Hoang Date [...] heart failure clinic. DAPHNE SHAHID MD Pager [phone] Plan of Care - Alden Chavarria, BRIM PRESSER - 07/14/2017 11:35 AM EST Problem: Patient [...] Discharge Disposition: home with assist Alden Chavarria, BRIM PRESSER Pager: [phone] Inpatient Physical Therapy Problem: Acute [...] sit/sit to supine -- Bed Mobility Goal, [place] Level supervision required -- Bed Mobility Goal, [...] - 3 days -- Gait Training Goal, [place] Level supervision required -- Gait Training Goal, [...] days -- Transfer Training Goal, Activity Type usk-nz-dmxsy/iuknr-un-zlp;xcm-kj-qkezn/lcfxt-ev-scj;toilet -- Transfer Train Goal, [place] Level supervision required -- Transfer Training Goal, [...] keeping present for 2 days per family. Photovoltaic Installer noted of frustrations, house keeping sent to room. Patient offered showered twice, refused. at bedside, frustrated that shower not complete, informed that patient had refused several times. requesting to see COMMUNITY MENTAL HEALTH WORKER, paged sent to Martha, will come to bedside (middle of consult). not willing to wait, Martha notified that family had gone home. Encouraged to come for morning rounds a t 8am. Diabetes team at bedside - insulin adjustments made. Call cabello in reach. Continue to monitor. PLAN MOVING FORWARD: Ambulate, dressing changes BID, Please change drsg at 4am per Martha COMMUNITY MENTAL HEALTH WORKER request. INDIVIDUALIZED FALL PREVENTION INTERVENTIONS: Patient-specific fall [...] levels on the lower side, 60ml of [place]atte juice given after a FS of 80. [...] Conf 07/13/17 0502 Interdisciplinary Rounds/Family Conf Participants nurse case manager;dietitian/nutrition services;nursing;occupational therapy;patient;pharmacy;physical therapy;physician Plan of [...] Anticipated Discharge Disposition: home with assist Pager: [phone] CLARISSA SEGAL, PT 07/12/2017 Physical Therapy Rehabilitation [...] to sit/sit to supine Bed Mobility Goal, [place] Level supervision required Bed Mobility Goal, Additional Goal adheres to psternal precautions for transfer Goal: Gait Training Goal Stand Alone Therapy Goal Outcome: Ongoing (Interventions Implemented as Appropriate) 07/12/17 1225 Gait Training Goal Gait Training Goal, Date Established 07/12/17 Gait Training Goal, Time to Achieve 2 - 3 days Gait Training Goal, [place] Level supervision required Gait Training Goal, Assist [...] 3 days Transfer Training Goal, Activity Type uge-gm-aznmh/anjvd-fn-ffs;gbe-mi-gnnfh/nhwqp-vh-ufe;toilet Transfer Train Goal, [place] Level supervision required Transfer Training Goal, Additional Goal adheres to sternal precautions during transfer Consult Note - Octavia Vaughn RN - 07/12/2017 10:50 AM EST [facility] CARDIAC REHABILITATION Gregory Hoang was seen today regarding participation in the outpatient Phase 2 Cardiac Rehabilitation at [facility]. The patient agrees to a referral [...] IV site, amio to other piv and SCHOOL PSYCHOMETRIST at bedside to help assess, IV removed. [...] staff, he stood and marched in place. Corry weak, wanting to sit back down. Remained [...] Outcome: Ongoing (Interventions Implemented as Appropriate) 07/05/17 0716 Mutuality/Individual Preferences What Anxieties, Fears or Concerns [...] Health/Prescription Coverage: Primary Insurance: MEDICARE Secondary Insurance: [employer] [place] Prescription Coverage: yes Preferred Pharmacy: [facility] [place] Other: none Primary Care Provider: Lovely Vicente MD [phone] Patient/Caregiver Goals of Treatment:live and get my breath back Potential Needs for Transition of Care: Rehab/SNF: [facility]; [facility] Home Health: NA DME: TBD Dialysis: na Community Resources: available Transportation: yes Other: none Anticipated Barriers to Discharge/Special Considerations: none Plan: Likely SNF Rehab before home A member of the Care Management team will continue to monitor progress, follow for continuity of care and assist with transition of care planning. ERLIN Weiss Pager: [phone] Consult Note - Katerin Azul RN - [...] patient W/E coverage, Dr. Jeane Tatum, pager [phone] Katerin Patel. STACIE Azul Endocrinology Diabetes Management Pager [phone] Plan of Care - Stephanie Godoy RN [...] 07/07/2017 6:27 PM EST [facility] Operative Note Patient Name: Gregory Hoang : [id number] MR#: [id number] Case Date: 07/07/2017 Surgeon: Surgeon(s) and Role: * Yuan Webber MD - Primary * Michael Drake PA - Physician Binder Layer * Linda Flores PA - Physician Binder Layer Preoperative diagnosis: 3VD Postoperative diagnosis: CAD, severe [...] Operative Note Patient Name: Gregory Hoang : [id number] MR#: [id number] Case Date: 07/07/2017 Surgeon: Surgeon(s) and Role: * Yuan Webber MD - Primary * Michael Drake PA - Physician Binder Layer * Linda Flores PA - Physician Binder Layer Preoperative diagnosis: 3VD Postoperative diagnosis: CAD, severe [...] [facility] Cardiology S1 (Pager [phone]) Plan of Care - Emelia Ibarra RN [...] Daphne Shahid MD I am seeing Gregory Haong at the request of Daphne Shahid MD [...] at [facility] MAIN OR Social History: Social [...] with other involved physicians Yuan Webber MD [phone] Med Student Progress Note - Jovani Katty [...] BiPAP - s/p lasix in the general laborer, was net -1.5L - s/p plavix load, hold further doses for CABG - continue heparin drip - continue ASA - continue statin - restart metoprolol 12.5mg q6h as tolerated, goal of SBP <120 - give Lasix 20mg IVP today, goal of net negative 1-2L per day - monitor I/O, patient is refusing ocasoi due to history of traumatic insertion - [...] Dispo: CVCC Katty Hahn, M3 [facility] Cardiology S1 (Pager [phone]) Plan of Care - Stephanie Godoy RN [...] urinal without difficulty. Lasix given in general laborer, 1.4 L out at this time. [...] MD [facility] [address] [place], [place] [address] (Wo rk) 05/28/2022 Appointment Cardiology Zulma Dolan MD [facility] [address] [place], [place] [address] (Wo rk) 05/28/2022 Laboratory Appointment Lab 05/28/2022 Office Visit Cardiology Zulma Dolan MD [facility] [place] [address] Liz Poole PA [facility] [place] [address] 06/10/2022 Office Visit Dermatology Laura Scherer MD [facility] DR TEJA GR-DERMAT [place], [place] [address] ( rk) Scheduled Orders Name [...] procedure are i n the results section. CANDY COOKER HELPER SCAN 07/15/2017 12:00 Res ults for this [...] Results f or this ([facility]) AM EST procedure are i [...] Results f or this ([facility]) PM EST procedure are i [...] Results f or this ([facility]) PM EST procedure are i [...] SCREEN Routine 07/06/2017 12:00 ([facility]/SHANDA) PM EST APTT STAT 07/06/2017 [...] Results f or this ([facility]) AM EST procedure are i [...] Results f or this ([facility]) AM EST procedure are i [...] Routine 07/05/2017 8:20 Results f or this ([facility]) PM EST procedure are i [...] Results f or this ([facility]) PM EST procedure are i [...] EXAMINATION: XR CHEST PA AND LATERAL (GE GCWIC) CLINICAL HISTORY: CABG x 3 TECHNIQUE: PA [...] Teague APRN IMG DX ORDERABLES SCAN DOC: CANDY COOKER HELPER (07/15/2017 12:00 AM EST) Narrative 07/15/2017 12:00 [...] Signature POC Glucose 186 65 - 199 [facility] mg/dL [facility] Comment: Supplemental ranges: <140 mg/dL before meals <180 mg/dL all other times of the day Specimen Anatomical Collection Method Collection Time Receive d Time (Source) Location / / Volume Laterality Blood specimen 07/14/2017 11:56 7 (specimen) AM EST 11:56 AM EST Yuan Webber MD POINT OF CARE TEST ORDERABLE S Performing Organization Address City/[facility] Code Phon e Number [address] POCT Glucose (07/14/2017 7:52 AM EST) athologist Signature POC Glucose 126 65 - 199 [facility] mg/dL [facility] Comment: Supplemental ranges: <140 mg/dL before meals <180 mg/dL all other times of the day Specimen Anatomical Collection Method Collection Time Receive d Time (Source) Location / / Volume Laterality Blood specimen 07/14/2017 7:52 AM 017 7:52 (specimen) EST AM EST Yuan Webber MD POINT OF CARE TEST ORDERABLE S Performing Organization Address City/[facility] [place] [address] (ABNORMAL) Prothrombin Time (07/14/2017 4:46 AM EST) athologist Signature PT 26.4 (H) 11.8 - 14.0 [facility] LABORATORY INR 2.4 (H) 0.9 - 1.1 [facility] [...] [place] STACIE HEMATOLOGY ORDERABLES Performing Organization Address City/[facility] Code Phon e Number [address] Potassium (07/14/2017 4:46 AM EST) athologist Signature Potassium 4.3 3.5 - 5.0 [facility] mmol/L [facility] Comment: Please note: [...] Resulting Agency Comment Spec In Lab Makayla [place] STACIE CHEMISTRY ORDERABLES Performing Organization Address City/[facility] Phon e Number [address] POCT Glucose (07/14/2017 4:34 AM EST) athologist Signature POC Glucose 115 65 - 199 [facility] mg/dL [facility] Comment: Supplemental ranges: <140 mg/dL before meals <180 mg/dL all other times of the day Specimen Anatomical Collection Method Collection Time Receive d Time (Source) Location / / Volume Laterality Blood specimen 07/14/2017 4:34 AM 017 4:34 (specimen) EST AM EST Yuan Webber MD POINT OF CARE TEST ORDERABLE S Performing Organization Address City/State/[place] [address] POCT Glucose (07/13/2017 11:33 PM EST) athologist Signature POC Glucose 132 65 - 199 [place] mg/dL [facility] Comment: Supplemental ranges: <140 mg/dL before meals <180 mg/dL all other times of the day Specimen Anatomical Collection Method Collection Time Receive d Time (Source) Location / / Volume Laterality Blood specimen 07/13/2017 11:33 7 (specimen) PM EST 11:33 PM EST Yuan Webber MD POINT OF CARE TEST ORDERABLE S Performing Organization Address City/[facility]/[place] [address] POCT Glucose (07/13/2017 9:25 PM EST) athologist Signature POC Glucose 121 65 - 199 [place] mg/dL [facility] Comment: Supplemental ranges: <140 mg/dL before meals <180 mg/dL all other times of the day Specimen Anatomical Collection Method Collection Time Receive d Time (Source) Location / / Volume Laterality Blood specimen 07/13/2017 9:25 PM 017 9:25 (specimen) EST PM EST Yuan Webber MD POINT OF CARE TEST ORDERABLE S Performing Organization Address City/State/[place] [address] POCT Glucose (07/13/2017 4:55 PM EST) athologist Signature POC Glucose 79 65 - 199 [facility] mg/dL [facility] Comment: Supplemental ranges: <140 mg/dL before meals <180 mg/dL all other times of the day Specimen Anatomical Collection Method Collection Time Receive d Time (Source) Location / / Volume Laterality Blood specimen 07/13/2017 4:55 PM 017 4:55 (specimen) EST PM EST Yuan Webber MD POINT OF CARE TEST ORDERABLE S Performing Organization Address City/State/ZIP Code Phon e Number [address] POCT Glucose (07/13/2017 11:16 AM EST) athologist Signature POC Glucose 163 65 - 199 [facility] SU mg/dL [facility] Comment: Supplemental ranges: <140 mg/dL before meals <180 mg/dL all other times of the day Specimen Anatomical Collection Method Collection Time Receive d Time (Source) Location / / Volume Laterality Blood specimen 07/13/2017 11:16 7 (specimen) AM EST 11:16 AM EST Yuan Webber MD POINT OF CARE TEST ORDERABLE S Performing Organization Address City/[facility]/[place] [address] POCT Glucose (07/13/2017 8:07 AM EST) athologist Signature POC Glucose 96 65 - 199 [facility] Comment: Supplemental ranges: <140 mg/dL before meals <180 mg/dL all other times of the day Specimen Anatomical Collection Method Collection Time Receive d Time (Source) Location / / Volume Laterality Blood specimen 07/13/2017 8:07 AM 017 8:07 (specimen) EST AM EST Yuan Webber MD POINT OF CARE TEST ORDERABLE S Performing Organization Address City/State/[place] [address] (ABNORMAL) Prothrombin Time (07/13/2017 4:26 AM EST) athologist Signature PT 20.8 (H) 11.8 - 14.0 [facility] LABORATORY INR 1.8 (H) 0.9 - 1.1 [facility] [...] Agency Comment Spec In Lab Makayla Wilson ARC WELDER HEMATOLOGY ORDERABLES Performing Organization Address City/State/[place] [address] (ABNORMAL) Basic Metabolic Panel (non-fasting) (07/13/2017 4:26 AM EST) athologist Signature Glucose Lvl 95 65 - 199 [facility] mg/dL [facility] Comment: Diabetes: >=200 mg/dL plus symp toms BUN 25 (H) 10 - 20 mg/dL [facility] Creatinine 1.19 0.80 - 1.50 mg/dL [facility] Sodium 143 135 - 145 mmol/L [facility] Potassium 3.7 3.5 - 5.0 mmol/L [facility] Comment: Please note: ??Patients with WBC >100,00 0 may have falsely elevated Potassium levels. ??For accurate Potassium quantif ication in these patients send serum separator tube (gold top) for subsequent determinations. ??Contact the Clinical Chemistry Laboratory if there are any qu estions. Chloride 104 98 - 107 mmol/L [facility] CO2 26 22 - 31 mmol/L [facility] Anion Gap 13 5 - 15 mmol/L [facility] Calcium 7.7 (L) 8.5 - 10.5 mg/dL [facility] Estimated GFR 60 >=60 [facility] Comment: The reported eGFR should be multiplied b y 1.2 for patients. The MDRD is not an appropriate measure o f renal function for patients with body mass extremes or in patients with acute kidney failure. http://[employer].com/DHnkdep http://[employer].com/DHMCnkf Specimen Anatomical Collection Method Collection Time Receive d Time (Source) Location / / Volume Laterality Blood specimen 07/13/2017 4:26 AM 017 4:46 (specimen) EST AM EST Resulting Agency Comment Spec In Lab Makayla Katie QUINONES CHEMISTRY ORDERABLES Performing Organization Address City/State/[place] [address] POCT Glucose (07/13/2017 3:52 AM EST) athologist Signature POC Glucose 93 65 - 199 [place] mg/dL [facility] Comment: Supplemental ranges: <140 mg/dL before meals <180 mg/dL all other times of the day Specimen Anatomical Collection Method Collection Time Receive d Time (Source) Location / / Volume Laterality Blood specimen 07/13/2017 3:52 AM 017 3:52 (specimen) EST AM EST Yuan Webber MD POINT OF CARE TEST ORDERABLE S Performing Organization Address City/State/[place] [address] POCT Glucose (07/13/2017 12:21 AM EST) athologist Signature POC Glucose 80 65 - 199 [place] mg/dL [facility] Comment: Supplemental ranges: <140 mg/dL before meals <180 mg/dL all other times of the day Specimen Anatomical Collection Method Collection Time Receive d Time (Source) Location / / Volume Laterality Blood specimen 07/13/2017 12:21 7 (specimen) AM EST 12:21 AM EST Yuan Webber MD POINT OF CARE TEST ORDERABLE S Performing Organization Address City/State/ZIP Code Phon e Number [address] POCT Glucose (07/12/2017 8:22 PM EST) athologist Signature POC Glucose 119 65 - 199 [place] mg/dL [facility] Comment: Supplemental ranges: <140 mg/dL before meals <180 mg/dL all other times of the day Specimen Anatomical Collection Method Collection Time Receive d Time (Source) Location / / Volume Laterality Blood specimen 07/12/2017 8:22 PM 017 8:22 (specimen) EST PM EST Yuan Webber MD POINT OF CARE TEST ORDERABLE S Performing Organization Address City/State/ZIP Code Phon e Number [address] POCT Glucose (07/12/2017 4:02 PM EST) athologist Signature POC Glucose 114 65 - 199 [place] mg/dL [facility] Comment: Supplemental ranges: <140 mg/dL before meals <180 mg/dL all other times of the day Specimen Anatomical Collection Method Collection Time Receive d Time (Source) Location / / Volume Laterality Blood specimen 07/12/2017 4:02 PM 017 4:02 (specimen) EST PM EST Yuan Webber MD POINT OF CARE TEST ORDERABLE S Performing Organization Address City/State/ZIP Code Phon e Number [address] POCT Glucose (07/12/2017 11:28 AM EST) athologist Signature POC Glucose 164 65 - 199 [place] mg/dL [facility] Comment: Supplemental ranges: <140 mg/dL before meals <180 mg/dL all other times of the day Specimen Anatomical Collection Method Collection Time Receive d Time (Source) Location / / Volume Laterality Blood specimen 07/12/2017 11:28 7 (specimen) AM EST 11:28 AM EST Yuan Webber MD POINT OF CARE TEST ORDERABLE S Performing Organization Address City/State/ZIP Code Phon e Number [address] POCT Glucose (07/12/2017 7:34 AM EST) athologist Signature POC Glucose 109 65 - 199 [place] mg/dL [facility] Comment: Supplemental ranges: <140 mg/dL before meals <180 mg/dL all other times of the day Specimen Anatomical Collection Method Collection Time Receive d Time (Source) Location / / Volume Laterality Blood specimen 07/12/2017 7:34 AM 017 7:34 (specimen) EST AM EST Yuan Webber MD POINT OF CARE TEST ORDERABLE S Performing Organization Address City/State/[place] [address] (ABNORMAL) Basic Metabolic Panel (non-fasting) (07/12/2017 4:11 AM EST) athologist Signature Glucose Lvl 92 65 - 199 [facility] mg/dL [facility] Comment: Diabetes: >=200 mg/dL plus symp toms BUN 31 (H) 10 - 20 mg/dL [facility] Creatinine 1.23 0.80 - 1.50 mg/dL [facility] Sodium 145 135 - 145 mmol/L [facility] Potassium Not Perf 3.5 - 5.0 mmol/L [facility] Comment: Duplicate order Please note: ??Patients with WBC >100,00 0 may have falsely elevated Potassium levels. ??For accurate Potassium quantif ication in these patients send serum separator tube (gold top) for subsequent determinations. ??Contact the Clinical Chemistry Laboratory if there are any qu estions. Chloride 106 98 - 107 mmol/L [facility] CO2 Not Perf 22 - 31 mmol/L [facility] Comment: Add-on request. Sample too old to perform test. Anion Gap Not Calculated 5 - 15 mmol/L [facility] Calcium 8.1 (L) 8.5 - 10.5 mg/dL [facility] Estimated GFR 58 (L) >=60 [facility] Comment: The reported eGFR should be multiplied b y 1.2 for patients. The MDRD is not an appropriate measure o f renal function for patients with body mass extremes or in patients with acute kidney failure. http://[employer]/DHnkdep http://[employer]/DHMCnkf Specimen Anatomical Collection Method Collection Time Receive d Time (Source) Location / / Volume Laterality Blood specimen 07/12/2017 4:11 AM 017 8:57 (specimen) EST AM EST Resulting Agency Comment Spec In Lab Makayla Wilson APRN CHEMISTRY ORDERABLES Performing Organization Address [facility]/[place] [address] (ABNORMAL) Prothrombin Time (07/12/2017 4:11 AM EST) athologist Signature PT 15.4 (H) 11.8 - 14.0 [facility] LABORATORY INR 1.2 (H) 0.9 - 1.1 [facility] [...] Wilson APRN HEMATOLOGY ORDERABLES Performing Organization Address [facility] [place] [address] Potassium (07/12/2017 4:11 AM EST) athologist Signature Potassium 3.8 3.5 - 5.0 [facility] mmol/L [facility] Comment: Please note: [...] Address City/State/ZIP Code Phon e Number [address] POCT Glucose (07/12/2017 4:10 AM EST) athologist Signature POC Glucose 90 65 - 199 [place] mg/dL [facility] Comment: Supplemental ranges: <140 mg/dL before meals <180 mg/dL all other times of the day Specimen Anatomical Collection Method Collection Time Receive d Time (Source) Location / / Volume Laterality Blood specimen 07/12/2017 4:10 AM 017 4:10 (specimen) EST AM EST Yuan Webber MD POINT OF CARE TEST ORDERABLE S Performing Organization Address City/[facility]/ZIP Code Phon e Number [address] POCT Glucose (07/11/2017 11:57 PM EST) athologist Signature POC Glucose 98 65 - 199 [place] mg/dL [facility] Comment: Supplemental ranges: <140 mg/dL before meals <180 mg/dL all other times of the day Specimen Anatomical Collection Method Collection Time Receive d Time (Source) Location / / Volume Laterality Blood specimen 07/11/2017 11:57 7 (specimen) PM EST 11:57 PM EST Yuan Webber MD POINT OF CARE TEST ORDERABLE S Performing Organization Address City/[facility]/[place] [address] POCT Glucose (07/11/2017 8:32 PM EST) athologist Signature POC Glucose 146 65 - 199 [place] mg/dL [facility] Comment: Supplemental ranges: <140 [...] Code Phon e Number [facility] [place] [address] XR Chest PA & [...] e xtubated, left chest tube removed, and Marenisco-Suzi catheter removed since the study. Atelectasis at [...] e xtubated, left chest tube removed, and Marenisco-Suzi catheter removed since the study. Atelectasis at [...] (H) 65 - 199 [place] mg/dL [facility] Comment: Supplemental ranges: <140 mg/dL before meals <180 mg/dL all other times of the day Specimen Anatomical Collection Method Collection Time Receive d Time (Source) Location / / Volume Laterality Blood specimen 07/11/2017 4:05 PM 017 4:05 (specimen) EST PM EST Yuan Webber MD POINT OF CARE TEST ORDERABLE S Performing Organization Address City/State/[place] [address] POCT Glucose (07/11/2017 11:55 AM EST) athologist Signature POC Glucose 176 65 - 199 [place] mg/dL [facility] Comment: Supplemental ranges: <140 mg/dL before meals <180 mg/dL all other times of the day Specimen Anatomical Collection Method Collection Time Receive d Time (Source) Location / / Volume Laterality Blood specimen 07/11/2017 11:55 7 (specimen) AM EST 11:55 AM EST Yuan Webber MD POINT OF CARE TEST ORDERABLE S Performing Organization Address City/State/[place] [address] POCT Glucose (07/11/2017 7:53 AM EST) athologist Signature POC Glucose 189 65 - 199 [place] mg/dL [facility] Comment: Supplemental ranges: <140 mg/dL before meals <180 mg/dL all other times of the day Specimen Anatomical Collection Method Collection Time Receive d Time (Source) Location / / Volume Laterality Blood specimen 07/11/2017 7:53 AM 017 7:53 (specimen) EST AM EST Yuan Webber MD POINT OF CARE TEST ORDERABLE S Performing Organization Address City/State/ZIP Code Phon e Number [address] POCT Glucose (07/11/2017 4:22 AM EST) athologist Signature POC Glucose 151 65 - 199 [place] mg/dL [facility] Comment: Supplemental ranges: <140 mg/dL before meals <180 mg/dL all other times of the day Specimen Anatomical Collection Method Collection Time Receive d Time (Source) Location / / Volume Laterality Blood specimen 07/11/2017 4:22 AM 017 4:22 (specimen) EST AM EST Yuan Webber MD POINT OF CARE TEST ORDERABLE S Performing Organization Address City/State/[place] [address] Potassium (07/11/2017 2:20 AM EST) athologist Signature Potassium 4.5 3.5 - 5.0 [facility] mmol/L [facility] Comment: Please note: [...] Address City/State/ZIP Code Phon e Number [address] POCT Glucose (07/11/2017 12:17 AM EST) athologist Signature POC Glucose 162 65 - 199 [facility] mg/dL [facility] Comment: Supplemental ranges: <140 mg/dL before meals <180 mg/dL all other times of the day Specimen Anatomical Collection Method Collection Time Receive d Time (Source) Location / / Volume Laterality Blood specimen 07/11/2017 12:17 7 (specimen) AM EST 12:17 AM EST Yuan Webber MD POINT OF CARE TEST ORDERABLE S Performing Organization Address City/[facility]/ZIP Code Phon e Number [address] POCT Glucose (07/10/2017 8:47 PM EST) athologist Signature POC Glucose 191 65 - 199 [place] mg/dL [facility] Comment: Supplemental ranges: <140 mg/dL before meals <180 mg/dL all other times of the day Specimen Anatomical Collection Method Collection Time Receive d Time (Source) Location / / Volume Laterality Blood specimen 07/10/2017 8:47 PM 017 8:47 (specimen) EST PM EST Yuan Webber MD POINT OF CARE TEST ORDERABLE S Performing Organization Address City/State/ZIP Code Phon e Number [address] POCT Glucose (07/10/2017 4:06 PM EST) athologist Signature POC Glucose 131 65 - 199 [place] mg/dL [facility] Comment: Supplemental ranges: <140 mg/dL before meals <180 mg/dL all other times of the day Specimen Anatomical Collection Method Collection Time Receive d Time (Source) Location / / Volume Laterality Blood specimen 07/10/2017 4:06 PM 017 4:06 (specimen) EST PM EST Yuan Webber MD POINT OF CARE TEST ORDERABLE S Performing Organization Address City/State/ZIP Code Phon e Number [address] POCT Glucose (07/10/2017 3:08 PM EST) athologist Signature POC Glucose 151 65 - 199 [place] mg/dL [facility] Comment: Supplemental ranges: <140 mg/dL before meals <180 mg/dL all other times of the day Specimen Anatomical Collection Method Collection Time Receive d Time (Source) Location / / Volume Laterality Blood specimen 07/10/2017 3:08 PM 017 3:08 (specimen) EST PM EST Yuan Webber MD POINT OF CARE TEST ORDERABLE S Performing Organization Address City/State/ZIP Code Phon e Number [address] POCT Glucose (07/10/2017 2:25 PM EST) athologist Signature POC Glucose 146 65 - 199 [place] mg/dL [facility] Comment: Supplemental ranges: <140 mg/dL before meals <180 mg/dL all other times of the day Specimen Anatomical Collection Method Collection Time Receive d Time (Source) Location / / Volume Laterality Blood specimen 07/10/2017 2:25 PM 017 2:25 (specimen) EST PM EST Yuan Webber MD POINT OF CARE TEST ORDERABLE S Performing Organization Address City/State/[place] [address] POCT Glucose (07/10/2017 1:23 PM EST) athologist Signature POC Glucose 166 65 - 199 [place] mg/dL [facility] Comment: Supplemental ranges: <140 mg/dL before meals <180 mg/dL all other times of the day Specimen Anatomical Collection Method Collection Time Receive d Time (Source) Location / / Volume Laterality Blood specimen 07/10/2017 1:23 PM 017 1:23 (specimen) EST PM EST Yuan Webber MD POINT OF CARE TEST ORDERABLE S Performing Organization Address City/State/[place] [address] POCT Glucose (07/10/2017 11:52 AM EST) athologist Signature POC Glucose 157 65 - 199 [place] mg/dL [facility] Comment: Supplemental ranges: <140 mg/dL before meals <180 mg/dL all other times of the day Specimen Anatomical Collection Method Collection Time Receive d Time (Source) Location / / Volume Laterality Blood specimen 07/10/2017 11:52 7 (specimen) AM EST 11:52 AM EST Yuan Webber MD POINT OF CARE TEST ORDERABLE S Performing Organization Address City/State/ZIP Code Phon e Number [address] POCT Glucose (07/10/2017 11:01 AM EST) athologist Signature POC Glucose 158 65 - 199 [place] mg/dL [facility] Comment: Supplemental ranges: <140 mg/dL before meals <180 mg/dL all other times of the day Specimen Anatomical Collection Method Collection Time Receive d Time (Source) Location / / Volume Laterality Blood specimen 07/10/2017 11:01 7 (specimen) AM EST 11:01 AM EST Yuan Webber MD POINT OF CARE TEST ORDERABLE S Performing Organization Address City/State/ZIP Code Phon e Number [address] POCT Glucose (07/10/2017 9:54 AM EST) athologist Signature POC Glucose 160 65 - 199 [place] mg/dL [facility] Comment: Supplemental ranges: <140 mg/dL before meals <180 mg/dL all other times of the day Specimen Anatomical Collection Method Collection Time Receive d Time (Source) Location / / Volume Laterality Blood specimen 07/10/2017 9:54 AM 017 9:54 (specimen) EST AM EST Yuan Webber MD POINT OF CARE TEST ORDERABLE S Performing Organization Address City/State/ZIP Code Phon e Number [address] POCT Glucose (07/10/2017 8:58 AM EST) athologist Signature POC Glucose 183 65 - 199 [place] mg/dL [facility] Comment: Supplemental ranges: <140 mg/dL before meals <180 mg/dL all other times of the day Specimen Anatomical Collection Method Collection Time Receive d Time (Source) Location / / Volume Laterality Blood specimen 07/10/2017 8:58 AM 017 8:58 (specimen) EST AM EST Yuan Webber MD POINT OF CARE TEST ORDERABLE S Performing Organization Address City/State/[place] [address] POCT Glucose (07/10/2017 8:01 AM EST) athologist Signature POC Glucose 173 65 - 199 [place] mg/dL [facility] Comment: Supplemental ranges: <140 mg/dL before meals <180 mg/dL all other times of the day Specimen Anatomical Collection Method Collection Time Receive d Time (Source) Location / / Volume Laterality Blood specimen 07/10/2017 8:01 AM 017 8:01 (specimen) EST AM EST Yuan Webber MD POINT OF CARE TEST ORDERABLE S Performing Organization Address City/[facility]/ZIP Code Phon e Number [address] POCT Glucose (07/10/2017 7:05 AM EST) P athologist Signature POC Glucose 166 65 - 199 [facility] Comment: Supplemental ranges: <140 mg/dL before meals <180 mg/dL all other times of the day Specimen Anatomical Collection Method Collection Time Receive d Time (Source) Location / / Volume Laterality Blood specimen 07/10/2017 7:05 AM 017 7:05 (specimen) EST AM EST Yuan Webber MD POINT OF CARE TEST ORDERABLE S Performing Organization Address City/[facility]/ZIP Code Phon e Number [address] POCT Glucose (07/10/2017 6:00 AM EST) P athologist Signature POC Glucose 162 65 - 199 [facility] Comment: Supplemental ranges: <140 mg/dL before meals <180 mg/dL all other times of the day Specimen Anatomical Collection Method Collection Time Receive d Time (Source) Location / / Volume Laterality Blood specimen 07/10/2017 6:00 AM 017 6:00 (specimen) EST AM EST Yuan Webber MD POINT OF CARE TEST ORDERABLE S Performing Organization Address City/State/ZIP Code Phon e Number [address] (ABNORMAL) Differential, Automated (07/10/2017 4:28 AM EST) [facility] gist Method Time Signature Neutrophils % 87.9 % [facility] Neutr Abs (ANC) 10.70 (H) 1.70 - [facility] 6.10 [facility] x10(3)/[facility] L LABORATORY Lymphocytes % 3.9 % [facility] Lymphocytes Abs 0.5 (L) 0.9 - 3.2 [facility] x10(3)/[facility] LABORATORY Monocytes % 7.0 % [facility] Monocyte Abs 0.8 0.3 - 0.9 [facility] x10(3)/[facility] LABORATORY Eosinophils % 0.3 % [facility] Eosinophils Abs 0.0 0.0 - 0.4 [facility] x10(3)/[facility] LABORATORY Basophils % 0.2 % [facility] Basophils Abs 0.0 0.0 - 0.1 [facility] x10(3)/[facility] LABORATORY Immature Gran % 0.70 % [facility] Comment: [...] Organization Address City/State/[place] [address] (ABNORMAL) Hemogram (07/10/2017 4:28 AM EST) Analysis Performed At Patho logist Time Signature WBC 12.2 (H) 4.0 - 9.5 [facility] x10(3)/[facility] LABORATORY RBC 3.31 (L) 4.58 - [facility] 5.54 [facility] x10(6)/[facility] LABORATORY Hemoglobin 9.8 (L) 13.7 - [facility] 16.5 gm/dL [facility] Hematocrit 30.0 (L) 40.5 - [place] 48.5 % [facility] MCV 90.6 82.9 - [place] 93.1 [facility] LABORATORY MCH 29.6 27.5 - [place] 32.1 pg [facility] MCHC 32.7 32.0 - [place] 35.7 gm/dL [facility] Platelets 135 (L) 145 - 357 [facility] x10(3)/[facility] LABORATORY RDWSD 50.8 (H) 36.0 - [place] 45.0 [facility] LABORATORY RDWCV 15.4 (H) 11.4 - [place] 13.8 % [facility] MPV 10.0 7.6 - 12.9 [facility] LABORATORY nRBC % Auto 0.0 % [facility] nRBC Abs Auto 0.000 0.000 - [place] ZHAOSU 0.000 [facility] x10(3)/[facility] LABORATORY Specimen Anatomical Collection Method Collection Time Receive d Time (Source) Location / / Volume Laterality Blood specimen 07/10/2017 4:28 AM 017 4:36 (specimen) EST AM EST Resulting Agency Comment Spec In Lab Yuan Webber MD HEMATOLOGY ORDERABLES Performing Organization Address City/State/[place] [address] (ABNORMAL) Basic Metabolic Panel (non-fasting) (07/10/2017 4:28 AM EST) P athologist Signature Glucose Lvl 178 65 - 199 [facility] mg/dL [facility] Comment: [...] estions. Chloride 107 98 - 107 mmol/L [facility] CO2 21 (L) 22 - 31 mmol/L [facility] Anion Gap 15 5 - 15 mmol/L [facility] Calcium 7.4 (L) 8.5 - 10.5 mg/dL [facility] Estimated GFR 60 >=60 [facility] Comment: The reported eGFR should be multiplied b y 1.2 for patients. The MDRD is not an appropriate measure o f renal function for patients with body mass extremes or in patients with acute kidney failure. http://[email or web address]/DHnkdep http://[email or web address]/DHMCnkf Specimen Anatomical Collection Method Collection Time Receive d Time (Source) Location / / Volume Laterality Blood specimen 07/10/2017 4:28 AM 017 4:36 (specimen) EST AM EST Resulting Agency Comment Spec In Lab Yuan Webber MD CHEMISTRY ORDERABLES Performing Organization Address City/[facility]/ZIP Code Phon e Number [address] POCT Glucose (07/10/2017 4:26 AM EST) athologist Signature POC Glucose 176 65 - 199 [facility] Comment: Supplemental ranges: <140 mg/dL before meals <180 mg/dL all other times of the day Specimen Anatomical Collection Method Collection Time Receive d Time (Source) Location / / Volume Laterality Blood specimen 07/10/2017 4:26 AM 017 4:26 (specimen) EST AM EST Yuan Webber MD POINT OF CARE TEST ORDERABLE S Performing Organization Address City/[facility]/[place] [address] (ABNORMAL) POCT Glucose (07/10/2017 3:06 AM EST) athologist Signature POC Glucose 204 (H) 65 - 199 [facility] Comment: Supplemental ranges: <140 mg/dL before meals <180 mg/dL all other times of the day Specimen Anatomical Collection Method Collection Time Receive d Time (Source) Location / / Volume Laterality Blood specimen 07/10/2017 3:06 AM 017 3:06 (specimen) EST AM EST Yuan Webber MD POINT OF CARE TEST ORDERABLE S Performing Organization Address City/State/[place] [address] (ABNORMAL) POCT Glucose (07/10/2017 2:10 AM EST) P athologist Signature POC Glucose 203 (H) 65 - 199 [place] mg/dL [facility] Comment: Supplemental ranges: <140 mg/dL before meals <180 mg/dL all other times of the day Specimen Anatomical Collection Method Collection Time Receive d Time (Source) Location / / Volume Laterality Blood specimen 07/10/2017 2:10 AM 017 2:10 (specimen) EST AM EST Yuan Webber MD POINT OF CARE TEST ORDERABLE S Performing Organization Address City/State/[place] [address] POCT Glucose (07/10/2017 1:09 AM EST) P athologist Signature POC Glucose 196 65 - 199 [place] mg/dL [facility] Comment: Supplemental ranges: <140 mg/dL before meals <180 mg/dL all other times of the day Specimen Anatomical Collection Method Collection Time Receive d Time (Source) Location / / Volume Laterality Blood specimen 07/10/2017 1:09 AM 017 1:09 (specimen) EST AM EST Yuan Webber MD POINT OF CARE TEST ORDERABLE S Performing Organization Address City/State/[place] [address] POCT Glucose (07/10/2017 12:10 AM EST) P athologist Signature POC Glucose 173 65 - 199 [place] mg/dL [facility] Comment: Supplemental ranges: <140 mg/dL before meals <180 mg/dL all other times of the day Specimen Anatomical Collection Method Collection Time Receive d Time (Source) Location / / Volume Laterality Blood specimen 07/10/2017 12:10 7 (specimen) AM EST 12:10 AM EST Yuan Webber MD POINT OF CARE TEST ORDERABLE S Performing Organization Address City/State/[place] [address] POCT Glucose (07/09/2017 11:01 PM EST) P athologist Signature POC Glucose 140 65 - 199 [place] mg/dL [facility] Comment: Supplemental ranges: <140 mg/dL before meals <180 mg/dL all other times of the day Specimen Anatomical Collection Method Collection Time Receive d Time (Source) Location / / Volume Laterality Blood specimen 07/09/2017 11:01 7 (specimen) PM EST 11:01 PM EST Yuan Webber MD POINT OF CARE TEST ORDERABLE S Performing Organization Address City/State/[place] [address] POCT Glucose (07/09/2017 10:05 PM EST) athologist Signature POC Glucose 144 65 - 199 [place] mg/dL [facility] Comment: Supplemental ranges: <140 mg/dL before meals <180 mg/dL all other times of the day Specimen Anatomical Collection Method Collection Time Receive d Time (Source) Location / / Volume Laterality Blood specimen 07/09/2017 10:05 7 (specimen) PM EST 10:05 PM EST Yuan Webber MD POINT OF CARE TEST ORDERABLE S Performing Organization Address City/State/ZIP Code Phon e Number [address] POCT Glucose (07/09/2017 9:31 PM EST) athologist Signature POC Glucose 121 65 - 199 [facility] SU mg/dL [facility] Comment: Supplemental ranges: <140 mg/dL before meals <180 mg/dL all other times of the day Specimen Anatomical Collection Method Collection Time Receive d Time (Source) Location / / Volume Laterality Blood specimen 07/09/2017 9:31 PM 017 9:31 (specimen) EST PM EST Yuan Webber MD POINT OF CARE TEST ORDERABLE S Performing Organization Address City/State/ZIP Code Phon e Number [address] POCT Glucose (07/09/2017 9:03 PM EST) athologist Signature POC Glucose 98 65 - 199 [place] mg/dL [facility] Comment: Supplemental ranges: <140 mg/dL before meals <180 mg/dL all other times of the day Specimen Anatomical Collection Method Collection Time Receive d Time (Source) Location / / Volume Laterality Blood specimen 07/09/2017 9:03 PM 017 9:03 (specimen) EST PM EST Yuan Webber MD POINT OF CARE TEST ORDERABLE S Performing Organization Address City/State/ZIP Code Phon e Number [address] POCT Glucose (07/09/2017 8:09 PM EST) athologist Signature POC Glucose 117 65 - 199 [place] mg/dL [facility] Comment: Supplemental ranges: <140 mg/dL before meals <180 mg/dL all other times of the day Specimen Anatomical Collection Method Collection Time Receive d Time (Source) Location / / Volume Laterality Blood specimen 07/09/2017 8:09 PM 017 8:09 (specimen) EST PM EST Yuan Webber MD POINT OF CARE TEST ORDERABLE S Performing Organization Address City/State/[place] [address] POCT Glucose (07/09/2017 5:40 PM EST) athologist Signature POC Glucose 155 65 - 199 [place] mg/dL [facility] Comment: Supplemental ranges: <140 mg/dL before meals <180 mg/dL all other times of the day Specimen Anatomical Collection Method Collection Time Receive d Time (Source) Location / / Volume Laterality Blood specimen 07/09/2017 5:40 PM 017 5:40 (specimen) EST PM EST Yuan Webber MD POINT OF CARE TEST ORDERABLE S Performing Organization Address City/[facility]/ZIP Code Phon e Number [address] POCT Glucose (07/09/2017 4:24 PM EST) athologist Signature POC Glucose 164 65 - 199 [place] mg/dL [facility] Comment: Supplemental ranges: <140 mg/dL before meals <180 mg/dL all other times of the day Specimen Anatomical Collection Method Collection Time Receive d Time (Source) Location / / Volume Laterality Blood specimen 07/09/2017 4:24 PM 017 4:24 (specimen) EST PM EST Yuan Webber MD POINT OF CARE TEST ORDERABLE S Performing Organization Address City/[facility]/ZIP Code Phon e Number [address] POCT Glucose (07/09/2017 3:19 PM EST) athologist Signature POC Glucose 166 65 - 199 [place] mg/dL [facility] Comment: Supplemental ranges: <140 mg/dL before meals <180 mg/dL all other times of the day Specimen Anatomical Collection Method Collection Time Receive d Time (Source) Location / / Volume Laterality Blood specimen 07/09/2017 3:19 PM 017 3:19 (specimen) EST PM EST Yuan Webber MD POINT OF CARE TEST ORDERABLE S Performing Organization Address City/State/ZIP Code Phon e Number [address] POCT Glucose (07/09/2017 2:26 PM EST) athologist Signature POC Glucose 179 65 - 199 [place] mg/dL [facility] Comment: Supplemental ranges: <140 mg/dL before meals <180 mg/dL all other times of the day Specimen Anatomical Collection Method Collection Time Receive d Time (Source) Location / / Volume Laterality Blood specimen 07/09/2017 2:26 PM 017 2:26 (specimen) EST PM EST Yuan Webber MD POINT OF CARE TEST ORDERABLE S Performing Organization Address City/[facility]/ZIP Code Phon e Number [address] (ABNORMAL) POCT Glucose (07/09/2017 1:29 PM EST) P athologist Signature POC Glucose 210 (H) 65 - 199 [place] mg/dL [facility] Comment: Supplemental ranges: <140 mg/dL before meals <180 mg/dL all other times of the day Specimen Anatomical Collection Method Collection Time Receive d Time (Source) Location / / Volume Laterality Blood specimen 07/09/2017 1:29 PM 017 1:29 (specimen) EST PM EST Yuan Webber MD POINT OF CARE TEST ORDERABLE S Performing Organization Address City/[facility]/[place] [address] POCT Glucose (07/09/2017 12:20 PM EST) P athologist Signature POC Glucose 172 65 - 199 [place] mg/dL [facility] Comment: Supplemental ranges: <140 mg/dL before meals <180 mg/dL all other times of the day Specimen Anatomical Collection Method Collection Time Receive d Time (Source) Location / / Volume Laterality Blood specimen 07/09/2017 12:20 7 (specimen) PM EST 12:20 PM EST Yuan Webber MD POINT OF CARE TEST ORDERABLE S Performing Organization Address City/State/[place] [address] POCT Glucose (07/09/2017 11:24 AM EST) P athologist Signature POC Glucose 156 65 - 199 [facility] SU mg/dL [facility] Comment: Supplemental ranges: <140 mg/dL before meals <180 mg/dL all other times of the day Specimen Anatomical Collection Method Collection Time Receive d Time (Source) Location / / Volume Laterality Blood specimen 07/09/2017 11:24 7 (specimen) AM EST 11:24 AM EST Yuan Webber MD POINT OF CARE TEST ORDERABLE S Performing Organization Address City/State/ZIP Code Phon e Number [address] POCT Glucose (07/09/2017 11:11 AM EST) P athologist Signature POC Glucose 172 65 - 199 [place] mg/dL [facility] Comment: Supplemental ranges: <140 mg/dL before meals <180 mg/dL all other times of the day Specimen Anatomical Collection Method Collection Time Receive d Time (Source) Location / / Volume Laterality Blood specimen 07/09/2017 11:11 7 (specimen) AM EST 11:11 AM EST Yuan Webber MD POINT OF CARE TEST ORDERABLE S Performing Organization Address City/[facility]/ZIP Code Phon e Number [address] POCT Glucose (07/09/2017 10:08 AM EST) P athologist Signature POC Glucose 176 65 - 199 [place] mg/dL [facility] Comment: Supplemental ranges: <140 mg/dL before meals <180 mg/dL all other times of the day Specimen Anatomical Collection Method Collection Time Receive d Time (Source) Location / / Volume Laterality Blood specimen 07/09/2017 10:08 7 (specimen) AM EST 10:08 AM EST Yuan Webber MD POINT OF CARE TEST ORDERABLE S Performing Organization Address City/State/ZIP Code Phon e Number [address] POCT Glucose (07/09/2017 8:02 AM EST) P athologist Signature POC Glucose 178 65 - 199 [place] mg/dL [facility] Comment: Supplemental ranges: <140 mg/dL before meals <180 mg/dL all other times of the day Specimen Anatomical Collection Method Collection Time Receive d Time (Source) Location / / Volume Laterality Blood specimen 07/09/2017 8:02 AM 017 8:02 (specimen) EST AM EST Yuan Webber MD POINT OF CARE TEST ORDERABLE S Performing Organization Address City/State/[place] [address] (ABNORMAL) BLOOD GAS 2 ARTERIAL (07/09/2017 5:37 AM EST) Analysis Performed At Patho logist Time Signature pH Art 7.36 7.35 - [facility] 7.45 [facility] pCO2 Art 38 35 - 45 [facility] mmHg [facility] pO2 Art 79 (L) 85 - 104 [facility] LABORATORY HCO3 Art 20.9 20.0 - [facility] 26.0 [facility] mmol/L [facility] BE Art -4.6 (L) -3.0 - 3.0 [facility] mmol/L [facility] Hgb Blood Gas 10.5 (L) 13.7 - [facility] 16.5 gm/dL [facility] O2HB Art 93.8 (L) 94.0 - [facility] 97.0 % [facility] COHB Art 0.3 % [facility] Comment: Nonsmokers: 0.5-1.5% COHB Smokers: Variable, but usually less than 10% Toxic: 20-30% COHB Lethal: Greater than 60% COHB METHB Art 0.6 <=1.5 % [facility] Na Whole Blood 141 135 - 145 mmol/L [facility] K Whole Blood 4.5 3.5 - 5.0 mmol/L [facility] Comment: Please note: Patients with WBC >100,000 may have falsely elevated Potassium levels. Contact the Clinical Chemistry L aboratory if there are any questions. ICa Whole Blood 1.01 (L) 1.15 - 1.33 mmol/L [facility] FIO2 Art 40 % [facility] PF Ratio Art 198 [facility] Specimen Anatomical Collection Method Collection Time Receive d Time (Source) Location / / Volume Laterality Blood specimen 07/09/2017 5:37 AM 017 5:37 (specimen) EST AM EST Yuan Webber MD CHEMISTRY ORDERABLES Performing Organization Address City/[facility]/ZIP Code Phon e Number [address] POCT Glucose (07/09/2017 3:27 AM EST) athologist Signature POC Glucose 192 65 - 199 [facility] mg/dL [facility] Comment: Supplemental ranges: <140 mg/dL before meals <180 mg/dL all other times of the day Specimen Anatomical Collection Method Collection Time Receive d Time (Source) Location / / Volume Laterality Blood specimen 07/09/2017 3:27 AM 017 3:27 (specimen) EST AM EST Yuan Webber MD POINT OF CARE TEST ORDERABLE S Performing Organization Address City/[facility]/ZIP Code Phon e Number [address] (ABNORMAL) Basic Metabolic Panel (non-fasting) (07/09/2017 2:30 AM EST) athologist Signature Glucose Lvl 179 65 - 199 [facility] Comment: Diabetes: >=200 mg/dL plus symp toms BUN 17 10 - 20 mg/dL [facility] Creatinine 1.34 0.80 - 1.50 mg/dL [facility] Sodium 144 135 - 145 mmol/L [facility] Potassium Not Perf 3.5 - 5.0 mmol/L [facility] Comment: Duplicate order Please note: ??Patients with WBC >100,00 0 may have falsely elevated Potassium levels. ??For accurate Potassium quantif ication in these patients send serum separator tube (gold top) for subsequent determinations. ??Contact the Clinical Chemistry Laboratory if there are any qu estions. Chloride 111 (H) 98 - 107 mmol/L [facility] CO2 21 (L) 22 - 31 mmol/L [facility] Anion Gap 12 5 - 15 mmol/L [facility] Calcium 7.1 (L) 8.5 - 10.5 mg/dL [facility] Comment: result rechecked-JLK Estimated GFR 53 (L) >=60 [facility] Comment: The reported eGFR should be multiplied b y 1.2 for patients. The MDRD is not an appropriate measure o f renal function for patients with body mass extremes or in patients with acute kidney failure. http://[email or web address]/DHnkdep http://[email or web address]/DHMCnkf Specimen Anatomical Collection Method Collection Time Receive d Time (Source) Location / / Volume Laterality Blood specimen Venous Draw / 07/09/2017 2:30 AM 2016 2:42 (specimen) Unknown EST AM EST Resulting Agency Comment Spec In Lab Yuan Webber MD CHEMISTRY ORDERABLES Performing Organization Address City/State/[place] [address] (ABNORMAL) Potassium (07/09/2017 2:30 AM EST) P athologist Signature Potassium 5.1 (H) 3.5 - 5.0 [facility] mmol/L [facility] Comment: Please note: [...] Organization Address City/State/ZIP Code [place] [address] (ABNORMAL) Hemogram (07/09/2017 2:30 AM EST) Analysis Performed At Patho logist Time Signature WBC 12.5 (H) 4.0 - 9.5 [place] x10(3)/[facility] LABORATORY RBC 3.38 (L) 4.58 - [place] 5.54 [facility] x10(6)/[facility] LABORATORY Hemoglobin 10.1 (L) 13.7 - [facility] 16.[facility] gm/dL [facility]ORATORY Hematocrit 30.3 (L) 40.5 - [facility] 48.5 % [facility] MCV 89.6 82.9 - [facility] 93.1 [facility] LABORATORY MCH 29.9 27.5 - [facility] 32.1 pg [facility] LABORATORY MCHC 33.3 32.0 - [place] 35.7 gm/dL [facility] LABORATORY Platelets 127 (L) 145 - 357 [facility] x10(3)/[facility] LABORATORY RDWSD 49.3 (H) 36.0 - [facility] 45.0 [facility] LABORATORY RDWCV 15.2 (H) 11.4 - [facility] 13.8 % [facility] LABORATORY MPV 9.9 7.6 - 12.9 [facility] LABORATORY nRBC % Auto 0.0 % [facility] LABORATORY nRBC Abs Auto 0.000 0.000 - [facility] 0.000 [facility] x10(3)/[facility] LABORATORY Specimen Anatomical Collection Method Collection Time Receive d Time (Source) Location / / Volume Laterality Blood specimen 07/09/2017 2:30 AM 017 2:41 (specimen) EST AM EST Resulting Agency Comment Spec In Lab Yuan Webber MD HEMATOLOGY ORDERABLES Performing Organization Address City/State/[place] [address] [facility] [address] POCT Glucose (07/09/2017 2:10 AM EST) P athologist Signature POC Glucose 169 65 - 199 [facility] mg/dL [facility]ORATORY Comment: Supplemental ranges: <140 mg/dL before meals <180 mg/dL all other times of the day Specimen Anatomical Collection Method Collection Time Receive d Time (Source) Location / / Volume Laterality Blood specimen 07/09/2017 2:10 AM 017 2:10 (specimen) EST AM EST Yuan Webber MD POINT OF CARE TEST ORDERABLE S Performing Organization Address City/[facility]/[place] [address] POCT Glucose (07/09/2017 1:01 AM EST) P athologist Signature POC Glucose 173 65 - 199 [facility] mg/dL [facility] LABOR[facility]ORY Comment: Supplemental ranges: <140 mg/dL before meals <180 mg/dL all other times of the day Specimen Anatomical Collection Method Collection Time Receive d Time (Source) Location / / Volume Laterality Blood specimen 07/09/2017 1:01 AM 017 1:01 (specimen) EST AM EST Yuan Webber MD POINT OF CARE TEST ORDERABLE S Performing Organization Address City/State/[place] [address] Blood culture (07/09/2017 12:40 AM EST) Patholo gist Method Time Signature Blood Culture No growth [place] DAVIS at 5 days. [facility] LABORATORY Specimen Anatomical Collection Method Collection Time Receive d Time (Source) Location / / Volume Laterality Blood specimen STRUCTURE OF RIGHT 07/09/2017 12:40 3:58 (specimen) UPPER LIMB / AM EST AM EST Unknown Resulting Agency Comment Spec In Lab Yuan Webber MD MICROBIOLOGY - BLOOD ORDERAB LES Performing Organization Address City/State/[place] [address] Blood culture (07/09/2017 12:30 AM EST) Patholo gist Method Time Signature Blood Culture No growth KATALINA DAVIS at 5 days. [facility] LABORATORY Specimen Anatomical Collection Method Collection Time Receive d Time (Source) Location / / Volume Laterality Blood specimen STRUCTURE OF LEFT 07/09/2017 12:30 06/25 3:59 (specimen) UPPER LIMB / AM EST AM EST Unknown Resulting Agency Comment Spec In Lab Yuan Webber MD MICROBIOLOGY - BLOOD ORDERAB LES Performing Organization Address City/[facility]/[place] [address] (ABNORMAL) Urinalysis Microscopic Exam (07/09/2017 12:05 AM EST) Analysis Performed At Patho logist Time Signature RBC UA 32 (H) 0 - 3 /HPF [facility] LABORATORY WBC UA 5 (H) 0 - 3 /HPF [facility] LABORATORY Squam Epith UA <1 <=4 /HPF [facility] LABORATORY Hyaline Cast 17 (H) 0 - 2 /LPF [facility] LABORATORY Gran Cast UA 1 (H) <=0 /LPF [facility] LABORATORY Uric Ac Bianca Rare (A) None /HPF [facility] LABORATORY Specimen (Source) Anatomical Collection Method Collection Time Re ceived Time Location / / Volume Laterality Urine specimen 07/09/2017 12:05 7 obtained via AM EST 12:39 AM EST indwelling urinary catheter (specimen) Resulting Agency Comment Spec In Lab Yuan Webber MD URINE ORDERABLES Performing Organization Address City/[facility]/[place] [address] (ABNORMAL) Urinalysis with reflex Culture (07/09/2017 12:05 AM EST) Patholo gist Method Time Signature Glucose UA Negative Negative [facility]dL [facility] Protein UA 30 (A) Negative [facility] mg/dL [facility] Bilirubin UA Negative Negative [facility] mg/dL [facility] Comment: Clinical correlation required for positi ve Urine Bilirubin results as false positive may occur with some drugs and d rug related products. If a false positive is suspected a serum total bili yeager should be considered if clinically indicated. Urobilinogen UA Normal Normal mg/dL [facility] LABORATORY pH UA 5.0 5.0 - 8.0 [facility] LABORATORY Blood UA Moderate (A) Negative mg/dL [facility] LABORATORY Ketones UA Negative Negative mg/dL [facility] Nitrite UA Negative Negative [facility] LABORATORY Leukocytes UA Negative Negative [facility] LABORATORY Appearance UA Hazy (A) Clear [facility] LABORATORY Spec [place] UA 1.025 1.002 - 1.030 [facility] LABORATORY Color UA Yellow Yellow [facility] LABORATORY Culture Reflexed No [facility] LABORATORY Specimen (Source) Anatomical Collection Method Collection Time Re ceived Time Location / / Volume Laterality Urine specimen 07/09/2017 12:05 7 obtained via AM EST 12:39 AM EST indwelling urinary catheter (specimen) Resulting Agency Comment Spec In Lab Yuan Webber MD URINE ORDERABLES Performing Organization Address City/[facility]/ZIP [facility] Phon e Number [address] POCT Glucose (07/08/2017 11:01 PM EST) athologist Signature POC Glucose 191 65 - 199 [facility] mg/dL [facility] LABORATORY Comment: Supplemental ranges: <140 mg/dL before meals <180 mg/dL all other times of the day Specimen Anatomical Collection Method Collection Time Receive d Time (Source) Location / / Volume Laterality Blood specimen 07/08/2017 11:01 7 (specimen) PM EST 11:01 PM EST Yuan Webber MD POINT OF CARE TEST ORDERABLE S Performing Organization Address City/State/ZIP Code Phon e Number [address] POCT Glucose (07/08/2017 10:04 PM EST) athologist Signature POC Glucose 198 65 - 199 [facility] mg/dL [facility] LABORATORY Comment: Supplemental ranges: <140 mg/dL before meals <180 mg/dL all other times of the day Specimen Anatomical Collection Method Collection Time Receive d Time (Source) Location / / Volume Laterality Blood specimen 07/08/2017 10:04 7 (specimen) PM EST 10:04 PM EST Yuan Webber MD POINT OF CARE TEST ORDERABLE S Performing Organization Address City/State/ZIP Code Phon e Number [address] Prepare Albumin 5% in 250 mL (07/08/2017 8:49 PM EST) athologist Signature Dispensed? Yes [facility] LABORATORY Specimen Anatomical Collection Method Collection Time Receive d Time (Source) Location / / Volume Laterality Blood specimen No Charge / 07/08/2017 8:49 PM 017 8:51 (specimen) Unknown EST PM EST Resulting Agency Comment Spec In Lab [facility] ORDERABLES Performing Organization Address City/[facility]/[place] [address] POCT Glucose (07/08/2017 8:28 PM EST) athologist Signature POC Glucose 195 65 - 199 [facility] mg/dL [facility] LABORATORY Comment: Supplemental ranges: <140 mg/dL before meals <180 mg/dL all other times of the day Specimen Anatomical Collection Method Collection Time Receive d Time (Source) Location / / Volume Laterality Blood specimen 07/08/2017 8:28 PM 017 8:28 (specimen) EST PM EST Yuan Webber MD POINT OF CARE TEST ORDERABLE S Performing Organization Address City/[facility]/[place] [address] (ABNORMAL) POCT Glucose (07/08/2017 7:13 PM EST) athologist Signature POC Glucose 220 (H) 65 - 199 [place] mg/dL [facility] LABORATORY Comment: Supplemental ranges: <140 mg/dL before meals <180 mg/dL all other times of the day Specimen Anatomical Collection Method Collection Time Receive d Time (Source) Location / / Volume Laterality Blood specimen 07/08/2017 7:13 PM 017 7:13 (specimen) EST PM EST Yuan Webber MD POINT OF CARE TEST ORDERABLE S Performing Organization Address City/State/[place] [address] POCT Glucose (07/08/2017 5:04 PM EST) P athologist Signature POC Glucose 147 65 - 199 [facility] mg/dL [facility] LABORATORY Comment: Supplemental ranges: <140 mg/dL before meals <180 mg/dL all other times of the day Specimen Anatomical Collection Method Collection Time Receive d Time (Source) Location / / Volume Laterality Blood specimen 07/08/2017 5:04 PM 017 5:04 (specimen) EST PM EST Yuan Webber MD POINT OF CARE TEST ORDERABLE S Performing Organization Address City/State/ZIP Code Phon e Number [place] [id number] (ABNORMAL) BLOOD GAS 2 ARTERIAL (07/08/2017 4:13 PM EST) Analysis Performed At Patho logist Time Signature pH Art 7.38 7.35 - [facility] 7.45 [facility] LABORATORY pCO2 Art 36 35 - 45 [facility] LABORATORY pO2 Art 91 85 - 104 [facility] LABORATORY HCO3 Art 20.9 20.0 - [facility] 26.0 [facility] mmol/L [facility] LABORATORY BE Art -4.2 (L) -3.0 - 3.0 [facility] mmol/L [facility] LABORATORY Hgb Blood Gas 11.7 (L) 13.7 - [facility] 16.5 gm/dL [facility] LABORATORY O2HB Art 95.1 94.0 - [facility] 97.0 % [facility] LABORATORY COHB Art 0.6 % [facility] LABORATORY Comment: Nonsmokers: 0.5-1.5% COHB Smokers: Variable, but usually less than 10% Toxic: 20-30% COHB Lethal: Greater than 60% COHB METHB Art 0.6 <=1.5 % [facility] LABORATORY Na Whole Blood 139 135 - 145 mmol/L [facility] LABORAT[facility] K Whole Blood 4.2 3.5 - 5.0 mmol/L [facility] LAB[facility] Comment: Please note: Patients with WBC >100,000 may have falsely elevated Potassium levels. Contact the Clinical Chemistry L aboratory if there are any questions. ICa Whole Blood 1.05 (L) 1.15 - 1.33 mmol/L [facility] FIO2 Art 40 % [facility] LABOR[facility] PF Ratio Art 228 [facility] LABORATORY Specimen Anatomical Collection Method Collection Time Receive d Time (Source) Location / / Volume Laterality Blood specimen 07/08/2017 4:13 PM 017 4:13 (specimen) EST PM EST Yuan Webber MD CHEMISTRY ORDERABLES Performing Organization Address City/State/ZIP Code Phon e Number [address] POCT Glucose (07/08/2017 4:01 PM EST) athologist Signature POC Glucose 148 65 - 199 [facility] mg/dL [facility] LABORATORY Comment: Supplemental ranges: <140 mg/dL before meals <180 mg/dL all other times of the day Specimen Anatomical Collection Method Collection Time Receive d Time (Source) Location / / Volume Laterality Blood specimen 07/08/2017 4:01 PM 017 4:01 (specimen) EST PM EST Yuan Webber MD POINT OF CARE TEST ORDERABLE S Performing Organization Address City/State/[place] [address] POCT Glucose (07/08/2017 3:21 PM EST) P athologist Signature POC Glucose 118 65 - 199 [facility] mg/dL [facility] LABORATORY Comment: Supplemental ranges: <140 mg/dL before meals <180 mg/dL all other times of the day Specimen Anatomical Collection Method Collection Time Receive d Time (Source) Location / / Volume Laterality Blood specimen 07/08/2017 3:21 PM 017 3:21 (specimen) EST PM EST Yuan Webber MD POINT OF CARE TEST ORDERABLE S Performing Organization Address City/State/ZIP Code Phon e Number [address] POCT Glucose (07/08/2017 2:01 PM EST) athologist Signature POC Glucose 129 65 - 199 [place] mg/dL [facility] LABORATORY Comment: Supplemental ranges: <140 mg/dL before meals <180 mg/dL all other times of the day Specimen Anatomical Collection Method Collection Time Receive d Time (Source) Location / / Volume Laterality Blood specimen 07/08/2017 2:01 PM 017 2:01 (specimen) EST PM EST Yuan Webber MD POINT OF CARE TEST ORDERABLE S Performing Organization Address City/State/[place] [address] POCT Glucose (07/08/2017 11:53 AM EST) athologist Signature POC Glucose 156 65 - 199 [place] mg/dL [facility] LABORATORY Comment: Supplemental ranges: <140 mg/dL before meals <180 mg/dL all other times of the day Specimen Anatomical Collection Method Collection Time Receive d Time (Source) Location / / Volume Laterality Blood specimen 07/08/2017 11:53 7 (specimen) AM EST 11:53 AM EST Yuan Webber MD POINT OF CARE TEST ORDERABLE S Performing Organization Address City/State/ZIP Code Phon e Number [address] POCT Glucose (07/08/2017 11:04 AM EST) athologist Signature POC Glucose 181 65 - 199 [facility] mg/dL [facility] LABORATORY Comment: Supplemental ranges: <140 [...] City/[facility]/[place] [address] (ABNORMAL) POCT Glucose (07/08/2017 9:24 AM EST) P athologist Signature POC Glucose 203 (H) 65 - 199 [facility] mg/dL [facility] LABORATORY Comment: Supplemental ranges: <140 mg/dL before meals <180 mg/dL all other times of the day Specimen Anatomical Collection Method Collection Time Receive d Time (Source) Location / / Volume Laterality Blood specimen 07/08/2017 9:24 AM 017 9:24 (specimen) EST AM EST Yuan Webber MD POINT OF CARE TEST ORDERABLE S Performing Organization Address [facility] [place] [address] APTT (07/08/2017 8:40 AM EST) P athologist Signature PTT 33 25 - 35 sec [facility] LAB[facility] Comment: The recommended therapeutic range for fu ll dose, unfractionated heparin at [facility] is 80 ? 114 seconds. [...] Webber MD HEMATOLOGY ORDERABLES Performing Organization Address City/[facility]/[place] [address] (ABNORMAL) Prothrombin Time (07/08/2017 8:40 AM EST) P athologist Signature PT 15.6 (H) 11.8 - 14.0 [facility] LABORATORY INR 1.3 (H) 0.9 - 1.1 [facility] [...] Webber MD HEMATOLOGY ORDERABLES Performing Organization Address City/[facility]/[place] [address] (ABNORMAL) POCT Glucose (07/08/2017 7:38 AM EST) P athologist Signature POC Glucose 232 (H) 65 - 199 [facility] mg/dL [facility] LABORATORY Comment: Supplemental ranges: <140 mg/dL before meals <180 mg/dL all other times of the day Specimen Anatomical Collection Method Collection Time Receive d Time (Source) Location / / Volume Laterality Blood specimen 07/08/2017 7:38 AM 017 7:38 (specimen) EST AM EST Yuan Webber MD POINT OF CARE TEST ORDERABLE S Performing Organization Address City/State/[place] [address] (ABNORMAL) POCT Glucose (07/08/2017 7:07 AM EST) P athologist Signature POC Glucose 234 (H) 65 - 199 [facility] mg/dL [facility] Comment: Supplemental ranges: <140 mg/dL before meals <180 mg/dL all other times of the day Specimen Anatomical Collection Method Collection Time Receive d Time (Source) Location / / Volume Laterality Blood specimen 07/08/2017 7:07 AM 017 7:07 (specimen) EST AM EST Yuan Webber MD POINT OF CARE TEST ORDERABLE S Performing Organization Address City/State/[place] [address] (ABNORMAL) POCT Glucose (07/08/2017 6:04 AM EST) athologist Signature POC Glucose 225 (H) 65 - 199 [facility] mg/dL [facility] Comment: Supplemental ranges: <140 mg/dL before meals <180 mg/dL all other times of the day Specimen Anatomical Collection Method Collection Time Receive d Time (Source) Location / / Volume Laterality Blood specimen 07/08/2017 6:04 AM 017 6:04 (specimen) EST AM EST Yuan Webber MD POINT OF CARE TEST ORDERABLE S Performing Organization Address City/[facility]/[place] [address] (ABNORMAL) POCT Glucose (07/08/2017 5:31 AM EST) athologist Signature POC Glucose 216 (H) 65 - 199 [facility] mg/dL [facility]ORY Comment: Supplemental ranges: <140 mg/dL before meals <180 mg/dL all other times of the day Specimen Anatomical Collection Method Collection Time Receive d Time (Source) Location / / Volume Laterality Blood specimen 07/08/2017 5:31 AM 017 5:31 (specimen) EST AM EST Yuan Webber MD POINT OF CARE TEST ORDERABLE S Performing Organization Address City/[facility]/[place] [address] (ABNORMAL) POCT Glucose (07/08/2017 4:52 AM EST) athologist Signature POC Glucose 257 (H) 65 - 199 [facility] mg/dL [facility]OR[facility]ORY Comment: Supplemental ranges: <140 mg/dL before meals <180 mg/dL all other times of the day Specimen Anatomical Collection Method Collection Time Receive d Time (Source) Location / / Volume Laterality Blood specimen 07/08/2017 4:52 AM 017 4:52 (specimen) EST AM EST Daphne Shahid MD POINT OF CARE TEST ORDERABLE S Performing Organization Address City/State/[place] [address] (ABNORMAL) BLOOD GAS 2 ARTERIAL (07/08/2017 4:04 AM EST) Analysis Performed At Patho logist Time Signature pH Art 7.30 (L) 7.35 - [facility] 7.45 [facility] LABORATORY pCO2 Art 41 35 - 45 [facility] mmHg [facility] LABORATORY pO2 Art 83 (L) 85 - 104 [facility] LABORATORY HCO3 Art 19.6 (L) 20.0 - [facility] 26.0 [facility] mmol/[facility] LABORATORY BE Art -6.8 (L) -3.0 - 3.0 [facility] mmol/L [facility] LABORATORY Hgb Blood Gas 12.2 (L) 13.7 - [facility] 16.5 gm/dL [facility] O2HB Art 93.5 (L) 94.0 - [facility] 97.0 % [facility] LABORATORY COHB Art 0.4 % [facility] LABOR[facility] Comment: Nonsmokers: 0.5-1.5% COHB Smokers: Variable, but usually less than 10% Toxic: 20-30% COHB Lethal: Greater than 60% COHB METHB Art 0.8 <=1.5 % [facility] LABORATORY Na Whole Blood 138 135 - 145 mmol/L [facility] K Whole Blood 4.4 3.5 - 5.0 mmol/L [facility] LAB[facility] Comment: Please note: Patients with WBC >100,000 may have falsely elevated Potassium levels. Contact the Clinical Chemistry L aboratory if there are any questions. ICa Whole Blood 1.05 (L) 1.15 - 1.33 mmol/L [facility] [...] by instrumentation instructor. FIO2 Art 40 % [facility] LABORATORY PF Ratio Art 208 [facility] LABORATORY Specimen Anatomical Collection Method Collection Time Receive d Time (Source) Location / / Volume Laterality Blood specimen 07/08/2017 4:04 AM 017 4:04 (specimen) EST AM EST Daphne Shahid MD CHEMISTRY ORDERABLES Performing Organization Address City/[facility]/ZIP Code Phon e Number [address] Scan, Peripheral Blood (07/08/2017 4:00 AM EST) P athologist Signature Plat Estimate Normal [facility]OR[facility]ORY RBC Morphology Normal [facility]OR[facility] Specimen Anatomical Collection Method Collection Time Receive d Time (Source) Location / / Volume Laterality Blood specimen 07/08/2017 4:00 AM 017 4:09 (specimen) EST AM EST Resulting Agency Comment Spec In Lab Yuan Webber MD HEMATOLOGY ORDERABLES Performing Organization Address City/[facility]/[place] [address] (ABNORMAL) Differential, Automated (07/08/2017 4:00 AM EST) Patholo gist Method Time Signature Neutrophils % 85.4 % [facility] LABORATORY Neutr Abs (ANC) 16.07 (H) 1.70 - [facility] 6.10 [facility] x10(3)/[facility] LABORATORY Lymphocytes % 3.5 % [facility] LABOR[facility] Lymphocytes Abs 0.6 (L) 0.9 - 3.2 [facility] x10(3)/[facility] LABORATORY Monocytes % 10.4 % [facility] LABOR[facility] Monocyte Abs 2.0 (H) 0.3 - 0.9 [facility] x10(3)/[facility] LABORATORY Eosinophils % 0.0 % [facility] LABORATORY Eosinophils Abs 0.0 0.0 - 0.4 [facility] x10(3)/[facility] LABORATORY Basophils % 0.1 % [facility] LABORAT[facility] Basophils Abs 0.0 0.0 - 0.1 [facility] x10(3)/[facility] LABORATORY Immature Gran % 0.60 % [facility] LAB[facility] Comment: [...] Organization Address City/State/[place] [address] (ABNORMAL) Hemogram (07/08/2017 4:00 AM EST) Analysis Performed At Patho logist Time Signature WBC 18.8 (H) 4.0 - 9.5 [facility] x10(3)/[facility] LABORATORY RBC 4.00 (L) 4.58 - [facility] 5.54 [facility] x10(6)/[facility] LABORATORY Hemoglobin 11.9 (L) 13.7 - [facility] 16.5 gm/dL [facility] LABORATORY Hematocrit 35.9 (L) 40.5 - [facility] 48.5 % [facility] LABORATORY MCV 89.8 82.9 - [facility] 93.1 [facility] LABORATORY MCH 29.8 27.5 - [facility] 32.1 pg [facility] LABORATORY MCHC 33.1 32.0 - [facility] 35.7 gm/dL [facility] LABORATORY Platelets 232 145 - 357 [facility] x10(3)/[facility] LABORATORY RDWSD 47.6 (H) 36.0 - [facility] 45.0 [facility] LABORATORY RDWCV 14.5 (H) 11.4 - [facility] 13.8 % [facility] LABORATORY MPV 9.5 7.6 - 12.9 [facility] LABORATORY nRBC % Auto 0.0 % [facility] LABORAT[facility] nRBC Abs Auto 0.000 0.000 - [facility] 0.000 [facility] x10(3)/[facility] LABORATORY Specimen Anatomical Collection Method Collection Time Receive d Time (Source) Location / / Volume Laterality Blood specimen 07/08/2017 4:00 AM 017 4:09 (specimen) EST AM EST Resulting Agency Comment Spec In Lab Yuan Webber MD HEMATOLOGY ORDERABLES Performing Organization Address City/[facility] [place] [address] (ABNORMAL) Electrolytes panel (07/08/2017 4:00 AM EST) P athologist Signature Sodium 139 135 - 145 [facility] mmol/[facility] LABORATORY Potassium 4.7 3.5 - 5.0 [facility] mmol/[facility] LABORATORY Comment: result rechecked-JLK Please note: ??Patients with WBC >100,00 0 may have falsely elevated Potassium levels. ??For accurate Potassium quantif ication in these patients send serum separator tube (gold top) for subsequent determinations. ??Contact the Clinical Chemistry Laboratory if there are any qu estions. Chloride 104 98 - 107 mmol/L [facility] Webber MD CHEMISTRY ORDERABLES Performing Organization Address City/[facility] [place] [address] (ABNORMAL) Cardiac Enzymes (LEB/CGP) (07/08/2017 4:00 AM EST) athologist Signature Troponin-T 1.88 (H) 0.00 - [facility] 0.00 ng/mL [facility]ORATORY Comment: The 99th percentile [...] Total 413 (H) 0 - 200 unit/L [facility] Comment: result rechecked-JLK Specimen Anatomical Collection Method Collection Time Receive d Time (Source) Location / / Volume Laterality Blood specimen 07/08/2017 4:00 AM 017 4:09 (specimen) EST AM EST Resulting Agency Comment Spec In Lab Yuan Webber MD CHEMISTRY ORDERABLES Performing Organization Address City/State/[place] [address] (ABNORMAL) Glucose, fasting (07/08/2017 4:00 AM EST) athologist Signature Glucose 287 (H) 65 - 99 [facility] Fasting mg/dL [facility]OR[facility] Comment: ?Fasting* Glucose Interpretive [...] Webber MD CHEMISTRY ORDERABLES Performing Organization Address City/[facility] [place] [address] (ABNORMAL) Creatinine (07/08/2017 4:00 AM EST) Analysis Performed At [facility] Time Signature Creatinine 1.55 (H) 0.80 - [facility] 1.[facility] mg/dL [facility] Estimated GFR 44 (L) >=60 [facility] Comment: The reported eGFR should be multiplied b y 1.2 for patients. The MDRD is not an appropriate measure o f renal function for patients with body mass extremes or in patients with acute kidney failure. http://Friend Trust[employer].tydy/DHnkdep http://[employer] Trust[employer].tydy/DHMCnkf Specimen Anatomical Collection Method Collection Time Receive d Time (Source) Location / / Volume Laterality Blood specimen 07/08/2017 4:00 AM 017 4:09 (specimen) EST AM EST Resulting Agency Comment Spec In Lab Yuan Webber MD CHEMISTRY ORDERABLES Performing Organization Address [facility]/ZIP [facility] Phon e Number [address] BUN (07/08/2017 4:00 AM EST) athologist Signature BUN 16 10 - 20 [place] SU mg/dL [facility] Specimen Anatomical Collection Method Collection Time Receive d Time (Source) Location / / Volume Laterality Blood specimen 07/08/2017 4:00 AM 017 4:09 (specimen) EST AM EST Resulting Agency Comment Spec In Lab Yuan Webber MD CHEMISTRY ORDERABLES Performing Organization Address City/State/ZIP Code Phon e Number [address] (ABNORMAL) POCT Glucose (07/08/2017 3:00 AM EST) athologist Signature POC Glucose 273 (H) 65 - 199 [place] ZHAOSU mg/dL [facility] Comment: Supplemental ranges: <140 mg/dL before meals <180 mg/dL all other times of the day Specimen Anatomical Collection Method Collection Time Receive d Time (Source) Location / / Volume Laterality Blood specimen 07/08/2017 3:00 AM 017 3:00 (specimen) EST AM EST Daphne Shahid MD POINT OF CARE TEST ORDERABLE S Performing Organization Address City/State/[place] [address] (ABNORMAL) POCT Glucose (07/08/2017 1:57 AM EST) athologist Signature POC Glucose 288 (H) 65 - 199 [facility] Comment: Supplemental ranges: <140 mg/dL before meals <180 mg/dL all other times of the day Specimen Anatomical Collection Method Collection Time Receive d Time (Source) Location / / Volume Laterality Blood specimen 07/08/2017 1:57 AM 017 1:57 (specimen) EST AM EST Daphne Shahid MD POINT OF CARE TEST ORDERABLE S Performing Organization Address City/State/[place] [address] (ABNORMAL) POCT Glucose (07/08/2017 1:01 AM EST) athologist Signature POC Glucose 315 (H) 65 - 199 [facility] mg/dL [facility] Comment: Supplemental ranges: <140 mg/dL before meals <180 mg/dL all other times of the day Specimen Anatomical Collection Method Collection Time Receive d Time (Source) Location / / Volume Laterality Blood specimen 07/08/2017 1:01 AM 017 1:01 (specimen) EST AM EST Daphne Shahid MD POINT OF CARE TEST ORDERABLE S Performing Organization Address City/State/[place] [address] (ABNORMAL) BLOOD GAS 2 ARTERIAL (07/08/2017 12:09 AM EST) athologist Signature pH Art 7.26 7.35 - [facility] (Critical) 7.45 [facility] Comment: Noted by instrumentation instructor. pCO2 [facility] COHB Art 0.2 % [facility] Comment: Nonsmokers: 0.5-1.5% COHB Smokers: Variable, but usually less than 10% Toxic: 20-30% COHB Lethal: Greater than 60% COHB METHB Art 0.6 <=1.5 % [facility] Na Whole Blood 141 135 - 145 mmol/L [facility] K Whole Blood 3.5 3.5 - 5.0 mmol/L [facility] Comment: Please note: Patients with WBC >100,000 may have falsely elevated Potassium levels. Contact the Clinical Chemistry L aboratory if there are any questions. ICa Whole Blood 1.03 (L) 1.15 - 1.33 mmol/L [facility] by instrumentation instructor. FIO2 Art 40 % [facility] PF Ratio Art 240 [facility] Specimen Anatomical Collection Method Collection Time Receive d Time (Source) Location / / Volume Laterality Blood specimen Arterial Draw / 07/08/2017 12:09 2016 5:31 (specimen) Unknown AM EST AM EST Resulting Agency Comment Spec In Lab Samy Maldonado MD CHEMISTRY ORDERABLES Performing Organization Address City/[facility]/[place] [address] (ABNORMAL) POCT Glucose (07/07/2017 10:56 PM EST) P athologist Signature POC Glucose 292 (H) 65 - 199 [facility] mg/dL [facility] Comment: Supplemental ranges: <140 mg/dL before meals <180 mg/dL all other times of the day Specimen Anatomical Collection Method Collection Time Receive d Time (Source) Location / / Volume Laterality Blood specimen 07/07/2017 10:56 7 (specimen) PM EST 10:56 PM EST Daphne Shahid MD POINT OF CARE TEST ORDERABLE S Performing Organization Address City/State/[place] [address] (ABNORMAL) BLOOD GAS 2 ARTERIAL (07/07/2017 10:04 PM EST) P athologist Signature pH Art 7.22 7.35 - [facility] (Critical) 7.45 [facility] Comment: Noted by instrumentation instructor. pCO2 [...] [facility] COHB Art 0.7 % [facility] Comment: Nonsmokers: 0.5-1.5% COHB Smokers: Variable, but usually less than 10% Toxic: 20-30% COHB Lethal: Greater than 60% COHB METHB Art 0.7 <=1.5 % [facility] Na Whole Blood 140 135 - 145 mmol/L [facility] K Whole Blood 3.3 (L) 3.5 - 5.0 mmol/L [facility] Comment: Please note: Patients with WBC >100,000 may have falsely elevated Potassium levels. Contact the Clinical Chemistry L aboratory if there are any questions. ICa Whole Blood 1.07 (L) 1.15 - 1.33 mmol/L [facility] by instrumentation instructor. FIO2 Art 40 % [facility] PF Ratio Art 235 [facility] Specimen Anatomical Collection Method Collection Time Receive d Time (Source) Location / / Volume Laterality Blood specimen 07/07/2017 10:04 7 (specimen) PM EST 10:04 PM EST Daphne Shahid MD CHEMISTRY ORDERABLES Performing Organization Address City/[facility]/[place] [address] (ABNORMAL) Hemoglobin (07/07/2017 10:00 PM EST) athologist [facility] Hemoglobin 12.8 (L) 13.7 - [place] SU 16.5 gm/dL [facility] Specimen Anatomical Collection Method Collection Time Receive d Time (Source) Location / / Volume Laterality Blood specimen 07/07/2017 10:00 7 (specimen) PM EST 10:13 PM EST Resulting Agency Comment Spec In Lab Yuan Webber MD HEMATOLOGY ORDERABLES Performing Organization Address City/[facility] [place] [address] (ABNORMAL) Potassium (07/07/2017 10:00 PM EST) athologist [facility] Potassium 3.4 (L) 3.5 - 5.0 [facility] mmol/L [facility] Comment: Please note: [...] Webber MD CHEMISTRY ORDERABLES Performing Organization Address City/[facility]/[place] [address] (ABNORMAL) POCT Glucose (07/07/2017 8:49 PM EST) athologist [facility] POC Glucose 241 (H) 65 - 199 [facility] Comment: Supplemental ranges: <140 mg/dL before meals <180 mg/dL all other times of the day Specimen Anatomical Collection Method Collection Time Receive d Time (Source) Location / / Volume Laterality Blood specimen 07/07/2017 8:49 PM 017 8:49 (specimen) EST PM EST Daphne Shahid MD POINT OF CARE TEST ORDERABLE S Performing Organization Address City/[facility]/[place] [address] Prepare Albumin 5% in 250 mL (07/07/2017 8:03 PM EST) P athologist Signature Dispensed? Yes [facility] Specimen Anatomical Collection Method Collection Time Receive d Time (Source) Location / / Volume Laterality Blood specimen No Charge / 07/07/2017 8:03 PM 017 8:04 (specimen) Unknown EST PM EST Resulting Agency Comment Spec In Lab Michael Drake PA BLOOD BANK ORDERABLES Performing Organization Address [facility] [place] [address] EKG 12 Lead (07/07/2017 7:17 PM EST) Component Value Ref Range Test Analysis Performed Pathologis t Method Time At Signature Ventricular rate 75 BPM MUSE SYSTEM Atrial Rate 75 BPM MUSE SYSTEM P-R Interval 168 ms MUSE SYSTEM QRS Duration 104 ms MUSE SYSTEM Q-T Interval 462 ms MUSE SYSTEM QTC Calculated 515 ms MUSE SYSTEM (Bezet) Calculated P Pinch 52 degrees MUSE SYSTEM Calculated R Pinch -40 degrees MUSE SYSTEM Calculated T Pinch 39 degrees MUSE SYSTEM INTERPRETATION Normal sinus [...] Webber MD ECG ORDERABLES Performing Organization Address City/[place] [...] 7.21 7.35 - [place] DAVIS (Critical) 7.45 [facility] Comment: Noted by instrumentation instructor. pCO2 [...] [facility] COHB Art 0.5 % [facility] Comment: Nonsmokers: 0.5-1.5% COHB Smokers: Variable, but usually less than 10% Toxic: 20-30% COHB Lethal: Greater than 60% COHB METHB Art 0.7 <=1.5 % [facility] Na Whole Blood 140 135 - 145 mmol/L [facility] K Whole Blood 3.0 (Critical) 3.5 - 5.0 mmol/L [facility] LABOR[facility] Comment: Noted by instrumentation instructor. Please note: Patients with WBC >100,000 may have falsely elevated Potassium levels. Contact the Clinical Chemistry L aboratory if there are any questions. ICa Whole Blood 1.07 (L) 1.15 - 1.33 mmol/L [facility] by instrumentation instructor. FIO2 Art 100 % [facility] PF Ratio Art 238 [facility] Specimen Anatomical Collection Method Collection Time Receive d Time (Source) Location / / Volume Laterality Blood specimen 07/07/2017 6:57 PM 017 6:57 (specimen) EST PM EST Daphne Shahid MD CHEMISTRY ORDERABLES Performing Organization Address City/State/[place] [address] (ABNORMAL) BLOOD GAS 2 ARTERIAL (07/07/2017 5:31 PM EST) P athologist Signature pH Art 7.29 7.35 - [facility] (Critical) 7.45 [facility] Comment: Noted by instrumentation instructor. pCO2 [...] [facility] COHB Art 0.3 % [facility] Comment: Nonsmokers: 0.5-1.5% COHB Smokers: Variable, but usually less than 10% Toxic: 20-30% COHB Lethal: Greater than 60% COHB METHB Art 0.3 <=1.5 % [facility] Na Whole Blood 132 (L) 135 - 145 mmol/L [facility] K Whole Blood 4.0 3.5 - 5.0 mmol/L [facility] Comment: Please note: Patients with WBC >100,000 may have falsely elevated Potassium levels. Contact the Clinical Chemistry L aboratory if there are any questions. ICa Whole Blood 1.14 (L) 1.15 - 1.33 mmol/L [facility] MD CHEMISTRY ORDERABLES Performing Organization Address [facility] Phon e Number [address] Fibrinogen (07/07/2017 5:30 PM EST) athologist Signature Fibrinogen 224 180 - 510 [facility] mg/dL [facility] Comment: Called by: JEET, [...] Perez MD HEMATOLOGY ORDERABLES Performing Organization Address [facility] Phon e Number [address] APTT (07/07/2017 5:30 PM EST) athologist Signature PTT 30 25 - 35 sec [facility] Comment: The recommended therapeutic range for fu ll dose, unfractionated heparin at [facility] is 80 ? 114 seconds. [...] Perez MD HEMATOLOGY ORDERABLES Performing Organization Address City/[facility]/[place] [address] (ABNORMAL) Prothrombin Time (07/07/2017 [...] Perez MD HEMATOLOGY ORDERABLES Performing Organization Address City/[facility]/[place] [address] (ABNORMAL) Hemogram (07/07/2017 5:30 PM EST) P athologist Signature WBC 19.6 (H) 4.0 - 9.5 [facility] x10(3)/[facility] LABORATORY RBC 3.08 (L) 4.58 - [facility] 5.54 [facility] x10(6)/[facility] LABORATORY Hemoglobin 9.2 (L) 13.7 - [facility] 16.5 gm/dL [facility] Hematocrit 28.0 (L) 40.5 - [facility] 48.5 % [facility] Comment: This result has been called to MONICAVeda MORAN by DONALD GROSSMAN on 07 07 2017 at 1759, and has been read back. MCV 90.9 82.9 - 93.1 fL [facility] MCH 29.9 27.5 - 32.1 pg [facility] MCHC 32.9 32.0 - 35.7 gm/dL [facility] Platelets 155 145 - 357 x10(3)/[facility] LABORATORY RDWSD 46.5 (H) 36.0 - 45.0 [facility] LABORATORY RDWCV 14.1 (H) 11.4 - 13.8 % [facility] LABORATORY MPV 9.5 7.6 - 12.9 fL [facility] LABORATORY nRBC % Auto 0.0 % [facility] LABORATORY nRBC Abs Auto 0.000 0.000 - 0.000 x10(3)/[facility] LABORATORY Specimen Anatomical Collection Method Collection Time Receive d Time (Source) Location / / Volume Laterality Blood specimen 07/07/2017 5:30 PM 017 5:34 (specimen) EST PM EST Resulting Agency Comment Spec In Lab Yifan Perez MD HEMATOLOGY ORDERABLES Performing Organization Address City/[facility]/ZIP Code Phon e Number [address] Prepare Platelets, Apheresis (07/07/2017 5:00 PM EST) athologist Signature Dispensed? Yes [facility] Specimen Anatomical Collection Method Collection Time Receive d Time (Source) Location / / Volume Laterality Blood specimen 07/07/2017 5:00 PM 017 4:58 (specimen) EST PM EST Daphne Shahid MD BLOOD BANK ORDERABLES Performing Organization Address City/[facility]/ZIP [facility] Phon e Number [address] Platelet count (07/07/2017 4:55 PM EST) P athologist Signature Platelets 177 145 - 357 [facility] x10(3)/[facility] LABORATORY Plat Immature 1.5 0.0 - 7.4 [facility] % [facility] Comment: Limitation of the Immature Platelet Frac tion (IPF)-May be less reliable when the platelet count is less than 37a083/u L due to statistical imprecision. The IPF [...] in a decreased state of production. References: [employer] The Clinical Value of the Immature Platelet Fraction (IPF) in Cell Recovery Document Number 10-1143 12/2010 [employer] The Role of the Imm ature [...] City/State/ZIP Code Phon e Number [place] [id number] (ABNORMAL) Hemoglobin and Hematocrit, blood (07/07/2017 4:55 PM EST) P athologist Signature Hemoglobin 9.1 (L) 13.7 - 16.5 [facility] gm/dL [facility] Comment: This result has been called to MALKA MORAN by DONALD GROSSMAN on 07 07 2017 at 1734, and has been read back. Hematocrit 26.6 (L) 40.5 - 48.5 % [facility] Comment: This result has been [...] Organization Address City/State/[place] [address] (ABNORMAL) BLOOD GAS 2 ARTERIAL (07/07/2017 4:38 PM EST) Analysis Performed At Patho logist Time Signature pH Art 7.37 7.35 - [facility] 7.45 [facility] pCO2 Art 44 35 - 45 [facility] mmHg [facility] pO2 Art 322 (H) 85 - 104 [facility] LABORATORY HCO3 Art 24.9 20.0 - [facility] 26.0 [facility] mmol/[facility] LABORATORY BE Art -0.4 -3.0 - 3.0 [facility] mmol/L [facility] Hgb Blood Gas 10.1 (L) 13.7 - [facility] 16.5 gm/dL [facility] O2HB Art 98.7 (H) 94.0 - [facility] 97.0 % [facility] COHB Art 0.1 % [facility] Comment: Nonsmokers: 0.5-1.5% COHB Smokers: Variable, but usually less than 10% Toxic: 20-30% COHB Lethal: Greater than 60% COHB METHB Art 0.3 <=1.5 % [facility] Na Whole Blood 130 (L) 135 - 145 mmol/L [facility] K Whole Blood 5.7 (H) 3.5 - 5.0 mmol/L [facility] Comment: Please note: Patients with WBC >100,000 may have falsely elevated Potassium levels. Contact the Clinical Chemistry L aboratory if there are any questions. ICa Whole Blood 0.89 (Critical) 1.15 - 1.33 mmol/L [facility] Comment: Noted by instrumentation instructor. Note: [...] Organization Address City/State/[place] [address] (ABNORMAL) BLOOD GAS 2 VENOUS (07/07/2017 4:06 PM EST) Analysis Performed At Patho logist Time Signature pH Cody 7.31 (L) 7.32 - [facility] 7.42 [facility] pCO2 Cody 47 41 - 51 [facility] LABORATORY pO2 Cody 53 (H) 25 - 40 [facility] LABORATORY HCO3 Cody 22.7 mmol/L [facility] BE Cody -3.7 mmol/L [facility] Hgb Blood Gas 10.2 (L) 13.7 - [facility] 16.5 gm/dL [facility] O2HB Cody 81.0 % [facility] COHB Cody 1.0 % [facility] Comment: Nonsmokers: 0.5-1.5% COHB Smokers: Variable, but usually less than 10% Toxic: 20-30% COHB Lethal: Greater than 60% COHB METHB Cody 0.3 <=1.5 % [facility] Na Whole Blood 132 (L) 135 - 145 mmol/L [facility] K Whole Blood 5.3 (H) 3.5 - 5.0 mmol/L [facility] Comment: Please note: Patients with WBC >100,000 may have falsely elevated Potassium levels. Contact the Clinical Chemistry L aboratory if there are any questions. ICa Whole Blood 0.90 (Critical) 1.15 - 1.33 mmol/L [facility] Comment: Noted by instrumentation instructor. Note: [...] [facility] BGas Source Venous [facility]ORY Specimen Anatomical Collection Method Collection Time Receive d Time (Source) Location / / Volume Laterality Blood specimen 07/07/2017 4:06 PM 017 4:06 (specimen) EST PM EST Daphne Shahid MD CHEMISTRY ORDERABLES Performing Organization Address City/State/[place] [address] (ABNORMAL) BLOOD GAS 2 ARTERIAL (07/07/2017 4:05 PM EST) Analysis Performed At Patho logist Time Signature pH Art 7.36 7.35 - [facility] 7.45 [facility] pCO2 Art 40 35 - 45 [facility] LABORATORY pO2 Art 282 (H) 85 - 104 [facility] LABORATORY HCO3 Art 22.1 20.0 - [facility] 26.0 [facility] mmol/[facility] LABORATORY BE Art -3.4 (L) -3.0 - 3.0 [facility] mmol/L [facility] Hgb Blood Gas 10.2 (L) 13.7 - [facility] 16.5 gm/dL [facility] O2HB Art 98.4 (H) 94.0 - [facility] 97.0 % [facility] COHB Art 0.3 % [facility] Comment: Nonsmokers: 0.5-1.5% COHB Smokers: Variable, but usually less than 10% Toxic: 20-30% COHB Lethal: Greater than 60% COHB METHB Art 0.3 <=1.5 % [facility] Na Whole Blood 131 (L) 135 - 145 mmol/L [facility] K Whole Blood 5.4 (H) 3.5 - 5.0 mmol/L [facility] Comment: Please note: Patients with WBC >100,000 may have falsely elevated Potassium levels. Contact the Clinical Chemistry L aboratory if there are any questions. ICa Whole Blood 0.86 (Critical) 1.15 - 1.33 mmol/L [facility] Comment: Noted by instrumentation instructor. Note: [...] Organization Address City/State/[place] [address] (ABNORMAL) BLOOD GAS 2 ARTERIAL (07/07/2017 2:29 PM EST) Analysis Performed At Patho logist Time Signature pH Art 7.43 7.35 - [facility] 7.45 [facility] pCO2 Art 36 35 - 45 [facility] mmHg [facility] pO2 Art 221 (H) 85 - 104 [facility] LABORATORY HCO3 Art 23.2 20.0 - [facility] 26.0 [facility] mmol/L [facility] LABORATORY BE Art -1.2 -3.0 - 3.0 [facility] mmol/L [facility] Hgb Blood Gas 13.9 13.7 - [facility] 16.5 gm/dL [facility] O2HB Art 97.8 (H) 94.0 - [facility] 97.0 % [facility] COHB Art 1.1 % [facility] Comment: Nonsmokers: 0.5-1.5% COHB Smokers: Variable, but usually less than 10% Toxic: 20-30% COHB Lethal: Greater than 60% COHB METHB Art 0.3 <=1.5 % [facility] Na Whole Blood 139 135 - 145 mmol/L [facility] K Whole Blood 4.0 3.5 - 5.0 mmol/L [facility] Comment: Please note: Patients with WBC >100,000 may have falsely elevated Potassium levels. Contact the Clinical Chemistry L aboratory if there are any questions. ICa Whole Blood 1.11 (L) 1.15 - 1.33 mmol/L [facility] Comment: Note: ??Total bilirubin higher than 20 m g/dL may lead to falsely low ionized calcium. CL Whole Blood 104 98 - 107 mmol/L [facility] Gluc Whole Bld 184 65 [...] Shahid MD CHEMISTRY ORDERABLES Performing Organization Address City/[facility]/[place] [address] Prepare Coag Factors (Non-Hemophilia) (07/07/2017 1:25 PM EST) P athologist Signature Dispensed? Yes [facility] Specimen Anatomical Collection Method Collection Time Receive d Time (Source) Location / / Volume Laterality Blood specimen 07/07/2017 1:25 PM 017 1:21 (specimen) EST PM EST Daphne Shahid MD BLOOD BANK ORDERABLES Performing Organization Address City/[facility]/[place] [address] Prepare RBC (07/07/2017 1:10 PM EST) P athologist Signature Dispensed? Yes [facility] Specimen Anatomical Collection Method Collection Time Receive d Time (Source) Location / / Volume Laterality Blood specimen 07/07/2017 1:10 PM 017 1:05 (specimen) EST PM EST Daphne Shahid MD BLOOD BANK ORDERABLES Performing Organization Address City/[facility]/ZIP Code Phon e Number [address] POCT Glucose (07/07/2017 11:56 AM EST) P athologist Signature POC Glucose 188 65 - 199 [place] mg/dL [facility] Comment: Supplemental ranges: <140 mg/dL before meals <180 mg/dL all other times of the day Specimen Anatomical Collection Method Collection Time Receive d Time (Source) Location / / Volume Laterality Blood specimen 07/07/2017 11:56 7 (specimen) AM EST 11:56 AM EST Daphne Shahid MD POINT OF CARE TEST ORDERABLE S Performing Organization Address City/[facility]/ZIP Code Phon e Number [address] POCT Glucose (07/07/2017 11:05 AM EST) P athologist Signature POC Glucose 168 65 - 199 [place] mg/dL [facility] Comment: Supplemental ranges: <140 mg/dL before meals <180 mg/dL all other times of the day Specimen Anatomical Collection Method Collection Time Receive d Time (Source) Location / / Volume Laterality Blood specimen 07/07/2017 11:05 7 (specimen) AM EST 11:05 AM EST Daphne Shahid MD POINT OF CARE TEST ORDERABLE S Performing Organization Address City/[facility]/ZIP Code Phon e Number [address] POCT Glucose (07/07/2017 10:02 AM EST) P athologist Signature POC Glucose 191 65 - 199 [place] mg/dL [facility] Comment: Supplemental ranges: <140 mg/dL before meals <180 mg/dL all other times of the day Specimen Anatomical Collection Method Collection Time Receive d Time (Source) Location / / Volume Laterality Blood specimen 07/07/2017 10:02 7 (specimen) AM EST 10:02 AM EST Daphne Shahid MD POINT OF CARE TEST ORDERABLE S Performing Organization Address City/State/ZIP Code Phon e Number [address] POCT Glucose (07/07/2017 7:53 AM EST) athologist Signature POC Glucose 178 65 - 199 [place] mg/dL [facility] Comment: Supplemental ranges: <140 mg/dL before meals <180 mg/dL all other times of the day Specimen Anatomical Collection Method Collection Time Receive d Time (Source) Location / / Volume Laterality Blood specimen 07/07/2017 7:53 AM 017 7:53 (specimen) EST AM EST Daphne Shahid MD POINT OF CARE TEST ORDERABLE S Performing Organization Address City/[facility]/ZIP Code Phon e Number [address] POCT Glucose (07/07/2017 7:03 AM EST) athologist Signature POC Glucose 188 65 - 199 [facility] SU mg/dL [facility] Comment: Supplemental ranges: <140 mg/dL before meals <180 mg/dL all other times of the day Specimen Anatomical Collection Method Collection Time Receive d Time (Source) Location / / Volume Laterality Blood specimen 07/07/2017 7:03 AM 017 7:03 (specimen) EST AM EST Daphne Shahid MD POINT OF CARE TEST ORDERABLE S Performing Organization Address City/State/ZIP Code Phon e Number [address] (ABNORMAL) POCT Glucose (07/07/2017 6:17 AM EST) athologist Signature POC Glucose 207 (H) 65 - 199 [facility] SU mg/dL [facility] Comment: Supplemental ranges: <140 mg/dL before meals <180 mg/dL all other times of the day Specimen Anatomical Collection Method Collection Time Receive d Time (Source) Location / / Volume Laterality Blood specimen 07/07/2017 6:17 AM 017 6:17 (specimen) EST AM EST Daphne Shahid MD POINT OF CARE TEST ORDERABLE S Performing Organization Address City/State/ZIP Code Phon e Number [place] [id number] Differential, Automated (07/07/2017 5:15 AM EST) P athologist Signature Neutrophils % 69.7 % [facility] Neutr Abs (ANC) 5.32 1.70 - [facility] 6.10 [facility] x10(3)/[facility] LABORATORY Lymphocytes % 16.3 % [facility] Lymphocytes Abs 1.2 0.9 - 3.2 [facility] x10(3)/[facility] LABORATORY Monocytes % 10.5 % [facility] Monocyte Abs 0.8 0.3 - 0.9 [facility] x10(3)/[facility] LABORATORY Eosinophils % 2.5 % [facility] Eosinophils Abs 0.2 0.0 - 0.4 [facility] x10(3)/[facility] LABORATORY Basophils % 0.7 % [facility] Basophils Abs 0.0 0.0 - 0.1 [facility] x10(3)/[facility] LABORATORY Immature Gran % 0.30 % [facility] Comment: Immature granulocytes(IG's)percentage an d absolute count will include metamyelocytes, myelocytes, and promyelo cytes. Blood smears from CBCs yielding IG's will be scanned manually for concor dance. If this scan disagrees with the automated IG or if promyelocytes are not ed, a manual differential will be performed. Melisa Gran Abs 0.02 0.00 - 0.04 x10(3)/[facility] Y [facility] LABORATORY Specimen Anatomical Collection Method Collection Time Receive d Time (Source) Location / / Volume Laterality Blood specimen 07/07/2017 5:15 AM 017 5:34 (specimen) EST AM EST Resulting Agency Comment Spec In Lab Daphne Shahid MD HEMATOLOGY ORDERABLES Performing Organization Address City/State/[place] [address] (ABNORMAL) Hemogram (07/07/2017 5:15 AM EST) Analysis Performed At Patho logist Time Signature WBC 7.6 4.0 - 9.5 [facility] x10(3)/[facility] LABORATORY RBC 4.82 4.58 - [place] 5.54 [facility] x10(6)/[facility] LABORATORY Hemoglobin 14.4 13.7 - [facility] 16.[facility] gm/dL [facility] Hematocrit 42.1 40.5 - [facility] 48.5 % [facility]ORATORY MCV 87.3 82.9 - [facility] 93.1 [facility] LABORATORY MCH 29.9 27.5 - [facility] 32.1 pg [facility]ORATORY MCHC 34.2 32.0 - [facility] 35.7 gm/dL [facility] Platelets 188 145 - 357 [facility] x10(3)/[facility] LABORATORY RDWSD 45.1 (H) 36.0 - [facility] 45.0 [facility] LABORATORY RDWCV 14.3 (H) 11.4 - [facility] 13.8 % [facility] LABORATORY MPV 9.4 7.6 - 12.9 [facility] LABORATORY nRBC % Auto 0.0 % [facility] nRBC Abs Auto 0.000 0.000 - [facility] 0.000 [facility] x10(3)/[facility] LABORATORY Specimen Anatomical Collection Method Collection Time Receive d Time (Source) Location / / Volume Laterality Blood specimen 07/07/2017 5:15 AM 017 5:34 (specimen) EST AM EST Resulting Agency Comment Spec In Lab Daphne Shahid MD HEMATOLOGY ORDERABLES Performing Organization Address City/State/[place] [address] (ABNORMAL) APTT (07/07/2017 5:15 AM EST) P athologist Signature PTT 69 (H) 25 - 35 sec [facility] Comment: The recommended therapeutic range for fu ll dose, unfractionated heparin at [facility] is 80 ? 114 seconds. [...] Shahid MD HEMATOLOGY ORDERABLES Performing Organization Address City/[facility]/ZIP Code Phon e Number [address] Magnesium (07/07/2017 5:15 AM EST) athologist Signature Magnesium 0.94 0.69 - 1.07 [facility] mmol/L [facility]OR[facility]ORY Specimen Anatomical Collection Method Collection Time Receive d Time (Source) Location / / Volume Laterality Blood specimen 07/07/2017 5:15 AM 017 5:34 (specimen) EST AM EST Resulting Agency Comment Spec In Lab Daphne Shahid MD CHEMISTRY ORDERABLES Performing Organization Address City/[facility] [place] [address] (ABNORMAL) Basic Metabolic Panel (non-fasting) (07/07/2017 5:15 AM EST) athologist Signature Glucose Lvl 203 (H) 65 - 199 [facility] mg/dL [facility] Comment: Diabetes: >=200 mg/dL plus symp toms BUN 15 10 - 20 mg/dL [facility] LABORATORY Creatinine 1.09 0.80 - 1.50 mg/dL [facility] LABORATORY Sodium 142 135 - 145 mmol/L [facility] LABORATORY Potassium 4.4 3.5 - 5.0 mmol/L [facility] Comment: Please note: ??Patients with WBC >100,00 0 may have falsely elevated Potassium levels. ??For accurate Potassium quantif ication in these patients send serum separator tube (gold top) for subsequent determinations. ??Contact the Clinical Chemistry Laboratory if there are any qu estions. Chloride 102 98 - 107 mmol/L [facility] [...] or in patients with acute kidney failure. [email or web address] [email or web address] Specimen Anatomical Collection Method Collection Time Receive d Time (Source) Location / / Volume Laterality Blood specimen 07/07/2017 5:15 AM 017 5:34 (specimen) EST AM EST Resulting Agency Comment Spec In Lab Daphne Shahid MD CHEMISTRY ORDERABLES Performing Organization Address City/State/[place] [address] (ABNORMAL) Cardiac Enzymes (LEB/CGP) (07/07/2017 5:15 AM EST) P athologist Signature Troponin-T 2.07 (H) 0.00 - [facility] 0.00 ng/mL [facility] Comment: The 99th percentile [...] CK, Total 88 0 - 200 unit/L [facility] Specimen Anatomical Collection Method Collection Time Receive d Time (Source) Location / / Volume Laterality Blood specimen 07/07/2017 5:15 AM 017 5:34 (specimen) EST AM EST Resulting Agency Comment Spec In Lab Daphne Shahid MD CHEMISTRY ORDERABLES Performing Organization Address City/[facility]/ZIP [facility] Phon e Number [address] POCT Glucose (07/07/2017 5:01 AM EST) athologist Signature POC Glucose 182 65 - 199 [facility] Comment: Supplemental ranges: <140 mg/dL before meals <180 mg/dL all other times of the day Specimen Anatomical Collection Method Collection Time Receive d Time (Source) Location / / Volume Laterality Blood specimen 07/07/2017 5:01 AM 017 5:01 (specimen) EST AM EST Daphne Shahid MD POINT OF CARE TEST ORDERABLE S Performing Organization Address City/[facility]/[place] [address] POCT Glucose (07/07/2017 4:08 AM EST) athologist Signature POC Glucose 199 65 - 199 [facility] Comment: Supplemental ranges: <140 mg/dL before meals <180 mg/dL all other times of the day Specimen Anatomical Collection Method Collection Time Receive d Time (Source) Location / / Volume Laterality Blood specimen 07/07/2017 4:08 AM 017 4:08 (specimen) EST AM EST Daphne Shahid MD POINT OF CARE TEST ORDERABLE S Performing Organization Address City/[facility]/ZIP Code Phon e Number [address] POCT Glucose (07/07/2017 3:03 AM EST) athologist Signature POC Glucose 188 65 - 199 [facility] mg/dL [facility] Comment: Supplemental ranges: <140 mg/dL before meals <180 mg/dL all other times of the day Specimen Anatomical Collection Method Collection Time Receive d Time (Source) Location / / Volume Laterality Blood specimen 07/07/2017 3:03 AM 017 3:03 (specimen) EST AM EST Daphne Shahid MD POINT OF CARE TEST ORDERABLE S Performing Organization Address City/State/[place] [address] (ABNORMAL) POCT Glucose (07/07/2017 2:08 AM EST) athologist Signature POC Glucose 200 (H) 65 - 199 [facility] mg/dL [facility] Comment: Supplemental ranges: <140 mg/dL before meals <180 mg/dL all other times of the day Specimen Anatomical Collection Method Collection Time Receive d Time (Source) Location / / Volume Laterality Blood specimen 07/07/2017 2:08 AM 017 2:08 (specimen) EST AM EST Daphne Shahid MD POINT OF CARE TEST ORDERABLE S Performing Organization Address City/State/[place] [address] (ABNORMAL) POCT Glucose (07/07/2017 1:31 AM EST) athologist Signature POC Glucose 209 (H) 65 - 199 [facility] mg/dL [facility] Comment: Supplemental ranges: <140 mg/dL before meals <180 mg/dL all other times of the day Specimen Anatomical Collection Method Collection Time Receive d Time (Source) Location / / Volume Laterality Blood specimen 07/07/2017 1:31 AM 017 1:31 (specimen) EST AM EST Daphne Shahid MD POINT OF CARE TEST ORDERABLE S Performing Organization Address City/State/[place] [address] XR Chest PA or [...] Signature POC Glucose 161 65 - 199 [facility] mg/dL [facility] Comment: Supplemental ranges: <140 mg/dL before meals <180 mg/dL all other times of the day Specimen Anatomical Collection Method Collection Time Receive d Time (Source) Location / / Volume Laterality Blood specimen 07/07/2017 12:07 7 (specimen) AM EST 12:07 AM EST Daphne Shahid MD POINT OF CARE TEST ORDERABLE S Performing Organization Address City/State/[place] [address] (ABNORMAL) APTT (07/07/2017 12:00 AM EST) P athologist Signature PTT 103 (H) 25 - 35 sec [facility] Comment: The recommended therapeutic range for fu ll dose, unfractionated heparin at [facility] is 80 ? 114 seconds. [...] Shahid MD HEMATOLOGY ORDERABLES Performing Organization Address City/[facility]/ZIP Code Phon e Number [address] POCT Glucose (07/06/2017 9:55 PM EST) athologist Signature POC Glucose 109 65 - 199 [facility]/dL [facility] Comment: Supplemental ranges: <140 mg/dL before meals <180 mg/dL all other times of the day Specimen Anatomical Collection Method Collection Time Receive d Time (Source) Location / / Volume Laterality Blood specimen 07/06/2017 9:55 PM 017 9:55 (specimen) EST PM EST Daphne Shahid MD POINT OF CARE TEST ORDERABLE S Performing Organization Address City/[facility]/ZIP Code Phon e Number [address] POCT Glucose (07/06/2017 9:04 PM EST) athologist Signature POC Glucose 120 65 - 199 [facility]/dL [facility] Comment: Supplemental ranges: <140 mg/dL before meals <180 mg/dL all other times of the day Specimen Anatomical Collection Method Collection Time Receive d Time (Source) Location / / Volume Laterality Blood specimen 07/06/2017 9:04 PM 017 9:04 (specimen) EST PM EST Daphne Shahid MD POINT OF CARE TEST ORDERABLE S Performing Organization Address City/[facility]/ZIP Code Phon e Number [address] POCT Glucose (07/06/2017 7:45 PM EST) athologist Signature POC Glucose 158 65 - 199 [facility] mg/dL [facility] Comment: Supplemental ranges: <140 mg/dL before meals <180 mg/dL all other times of the day Specimen Anatomical Collection Method Collection Time Receive d Time (Source) Location / / Volume Laterality Blood specimen 07/06/2017 7:45 PM 017 7:45 (specimen) EST PM EST Daphne Shahid MD POINT OF CARE TEST ORDERABLE S Performing Organization Address City/[facility]/ZIP [facility] [place] [address] Potassium (07/06/2017 7:40 PM EST) athologist [facility] Potassium 3.9 3.5 - 5.0 [facility] mmol/L [facility] Comment: Please note: [...] Shahid MD CHEMISTRY ORDERABLES Performing Organization Address City/[facility] [place] [address] (ABNORMAL) Cardiac Enzymes (LEB/CGP) (07/06/2017 7:40 PM EST) athologist [facility] Troponin-T 2.27 (H) 0.00 - [place] 0.00 ng/mL [facility] Comment: The 99th percentile [...] CK, Total 93 0 - 200 unit/L [facility] Specimen Anatomical Collection Method Collection Time Receive d Time (Source) Location / / Volume Laterality Blood specimen 07/06/2017 7:40 PM 017 7:52 (specimen) EST PM EST Resulting Agency Comment Spec In Lab Daphne Shahid MD CHEMISTRY ORDERABLES Performing Organization Address City/[facility]/[place] [address] (ABNORMAL) POCT Glucose (07/06/2017 7:13 PM EST) P athologist Signature POC Glucose 200 (H) 65 - 199 [facility] mg/dL [facility] Comment: Supplemental ranges: <140 mg/dL before meals <180 mg/dL all other times of the day Specimen Anatomical Collection Method Collection Time Receive d Time (Source) Location / / Volume Laterality Blood specimen 07/06/2017 7:13 PM 017 7:13 (specimen) EST PM EST Daphne Shahid MD POINT OF CARE TEST ORDERABLE S Performing Organization Address City/[facility]/[place] [address] (ABNORMAL) APTT (07/06/2017 6:15 PM EST) P athologist Signature PTT 94 (H) 25 - 35 sec [facility] Comment: The recommended therapeutic range for fu ll dose, unfractionated heparin at [facility] is 80 ? 114 seconds. [...] Shahid MD HEMATOLOGY ORDERABLES Performing Organization Address City/[facility]/ZIP Code Phon e Number [address] (ABNORMAL) POCT Glucose (07/06/2017 6:03 PM EST) athologist Signature POC Glucose 236 (H) 65 - 199 [facility] mg/dL [facility] Comment: Supplemental ranges: <140 mg/dL before meals <180 mg/dL all other times of the day Specimen Anatomical Collection Method Collection Time Receive d Time (Source) Location / / Volume Laterality Blood specimen 07/06/2017 6:03 PM 017 6:03 (specimen) EST PM EST Daphne Shahid MD POINT OF CARE TEST ORDERABLE S Performing Organization Address City/[facility]/[place] [address] (ABNORMAL) POCT Glucose (07/06/2017 5:01 PM EST) P athologist Signature POC Glucose 235 (H) 65 - 199 [facility]/dL [facility] Comment: Supplemental ranges: <140 mg/dL before meals <180 mg/dL all other times of the day Specimen Anatomical Collection Method Collection Time Receive d Time (Source) Location / / Volume Laterality Blood specimen 07/06/2017 5:01 PM 017 5:01 (specimen) EST PM EST Daphne Shahid MD POINT OF CARE TEST ORDERABLE S Performing Organization Address City/State/[place] [address] (ABNORMAL) POCT Glucose (07/06/2017 4:06 PM EST) athologist Signature POC Glucose 202 (H) 65 - 199 [facility] mg/dL [facility] Comment: Supplemental ranges: <140 mg/dL before meals <180 mg/dL all other times of the day Specimen Anatomical Collection Method Collection Time Receive d Time (Source) Location / / Volume Laterality Blood specimen 07/06/2017 4:06 PM 017 4:06 (specimen) EST PM EST Daphne Shahid MD POINT OF CARE TEST ORDERABLE S Performing Organization Address City/[facility]/ZIP [facility] [address] POCT Glucose (07/06/2017 2:59 PM EST) athologist Signature POC Glucose 178 65 - 199 [facility] mg/dL [facility] Comment: Supplemental ranges: <140 mg/dL before meals <180 mg/dL all other times of the day Specimen Anatomical Collection Method Collection Time Receive d Time (Source) Location / / Volume Laterality Blood specimen 07/06/2017 2:59 PM 017 2:59 (specimen) EST PM EST Daphne Shahid MD POINT OF CARE TEST ORDERABLE S Performing Organization Address City/[facility] [place] [address] (ABNORMAL) Cardiac Enzymes (LEB/CGP) (07/06/2017 2:10 PM EST) athologist Signature Troponin-T 2.34 (H) 0.00 - [facility] 0.[facility] ng/mL [facility] Comment: The 99th percentile [...] CK, Total 101 0 - 200 unit/L [facility] Specimen Anatomical Collection Method Collection Time Receive d Time (Source) Location / / Volume Laterality Blood specimen 07/06/2017 2:10 PM 017 2:26 (specimen) EST PM EST Resulting Agency Comment Spec In Lab Daphne Shahid MD CHEMISTRY ORDERABLES Performing Organization Address City/[facility]/ZIP Code Phon e Number [address] POCT Glucose (07/06/2017 2:08 PM EST) athologist Signature POC Glucose 192 65 - 199 [facility] mg/dL [facility] Comment: Supplemental ranges: <140 mg/dL before meals <180 mg/dL all other times of the day Specimen Anatomical Collection Method Collection Time Receive d Time (Source) Location / / Volume Laterality Blood specimen 07/06/2017 2:08 PM 017 2:08 (specimen) EST PM EST Daphne Shahid MD POINT OF CARE TEST ORDERABLE S Performing Organization Address City/[facility]/ZIP [facility] Phon e Number [address] POCT Glucose (07/06/2017 1:04 PM EST) athologist Signature POC Glucose 162 65 - 199 [facility] mg/dL [facility] Comment: Supplemental ranges: <140 mg/dL before meals <180 mg/dL all other times of the day Specimen Anatomical Collection Method Collection Time Receive d Time (Source) Location / / Volume Laterality Blood specimen 07/06/2017 1:04 PM 017 1:04 (specimen) EST PM EST Daphne Shahid MD POINT OF CARE TEST ORDERABLE S Performing Organization Address City/State/ZIP Code Phon e Number [address] POCT Glucose (07/06/2017 12:05 PM EST) P athologist Signature POC Glucose 196 65 - 199 [facility] mg/dL [facility] Comment: Supplemental ranges: <140 mg/dL before meals <180 mg/dL all other times of the day Specimen Anatomical Collection Method Collection Time Receive d Time (Source) Location / / Volume Laterality Blood specimen 07/06/2017 12:05 7 (specimen) PM EST 12:05 PM EST Daphne Shahid MD POINT OF CARE TEST ORDERABLE S Performing Organization Address City/[facility]/[place] [address] EKG 12 Lead (07/06/2017 12:00 PM EST) Component Value Ref Range Test Analysis Performed Pathologis t Method Time At Signature Ventricular rate 91 BPM MUSE SYSTEM Atrial Rate 91 BPM MUSE SYSTEM P-R Interval 140 ms MUSE SYSTEM QRS Duration 94 ms MUSE SYSTEM Q-T Interval 394 ms MUSE SYSTEM QTC Calculated 484 ms MUSE SYSTEM (Bezet) Calculated P Pinch 36 degrees MUSE SYSTEM Calculated R Pinch -19 degrees MUSE SYSTEM Calculated T Pinch 104 degrees MUSE SYSTEM INTERPRETATION Normal sinus rhythm MUSE SYSTEM 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) ST & T wave abnormality, consider lateral ischemia Abnormal ECG When compared with ECG of 05-JUL-2017 20:39, No significant change was found Confirmed by MD Luci, Taurus Braun ([id number]) on 07/06/2017 5:07:33 PM Specimen Anatomical Collection Method Collection Time Receive d Time (Source) Location / / Volume Laterality 07/06/2017 12:00 07/06/2017 5:07 PM EST PM EST Authorizing Provider Result Mikaela Shahid MD ECG ORDERABLES Performing Organization Address City/State/ZIP Code Phon e Number MUSE SYSTEM ABORH Recheck Status (07/06/2017 12:00 PM EST) [facility] Method Time Signature ABORH Type Completed [facility] LABORATORY Specimen Anatomical Collection Method Collection Time Receive d Time (Source) Location / / Volume Laterality Blood specimen 07/06/2017 12:00 7 (specimen) PM EST 12:24 PM EST Resulting Agency Comment Spec In Lab Daphne Shahid MD BLOOD BANK ORDERABLES Performing Organization Address City/State/[place] [address] Antibody screen (07/06/2017 12:00 PM EST) [facility] Method [place] Signature Ab Screen Negative [facility] LABORATORY Expires at 07/09/2017 [facility] [id number] on: [facility] LABORATORY Specimen Anatomical Collection Method Collection Time Receive d Time (Source) Location / / Volume Laterality Blood specimen 07/06/2017 12:00 7 (specimen) PM EST 12:24 PM EST Resulting Agency Comment Spec In Lab Daphne Shahid MD BLOOD BANK ORDERABLES Performing Organization Address City/State/[place] [address] ABO/Rh Typing (07/06/2017 12:00 [...] City/[facility]/[place] [address] Prothrombin Time (07/06/2017 11:24 AM EST) P athologist Signature PT 13.3 11.8 - 14.0 [facility] LABORATORY INR 1.0 0.9 - 1.1 [facility] [...] Shahid MD HEMATOLOGY ORDERABLES Performing Organization Address City/[facility]/[place] [address] (ABNORMAL) APTT (07/06/2017 11:24 AM EST) P athologist Signature PTT 52 (H) 25 - 35 sec [facility] LABORATORY Comment: The recommended therapeutic range for fu ll dose, unfractionated heparin at [facility] is 80 ? 114 seconds. [...] Shahid MD HEMATOLOGY ORDERABLES Performing Organization Address City/[facility]/[place] [address] POCT Glucose (07/06/2017 11:02 AM EST) P athologist Signature POC Glucose 187 65 - 199 [facility] mg/dL [facility] LABORATORY Comment: Supplemental ranges: <140 mg/dL before meals <180 mg/dL all other times of the day Specimen Anatomical Collection Method Collection Time Receive d Time (Source) Location / / Volume Laterality Blood specimen 07/06/2017 11:02 7 (specimen) AM EST 11:02 AM EST Daphne Shahid MD POINT OF CARE TEST ORDERABLE S Performing Organization Address City/State/[place] [address] POCT Glucose (07/06/2017 10:18 AM EST) athologist Signature POC Glucose 193 65 - 199 [place] mg/dL [facility] LABORATORY Comment: Supplemental ranges: <140 mg/dL before meals <180 mg/dL all other times of the day Specimen Anatomical Collection Method Collection Time Receive d Time (Source) Location / / Volume Laterality Blood specimen 07/06/2017 10:18 7 (specimen) AM EST 10:18 AM EST Daphne Shahid MD POINT OF CARE TEST ORDERABLE S Performing Organization Address City/State/ZIP Code Phon e Number [address] POCT Glucose (07/06/2017 9:25 AM EST) athologist Signature POC Glucose 182 65 - 199 [place] mg/dL [facility] LABORATORY Comment: Supplemental ranges: <140 mg/dL before meals <180 mg/dL all other times of the day Specimen Anatomical Collection Method Collection Time Receive d Time (Source) Location / / Volume Laterality Blood specimen 07/06/2017 9:25 AM 017 9:25 (specimen) EST AM EST Daphne Shahid MD POINT OF CARE TEST ORDERABLE S Performing Organization Address City/State/[place] [address] (ABNORMAL) Cardiac Enzymes (LEB/CGP) (07/06/2017 8:10 AM EST) athologist Signature Troponin-T 2.26 (H) 0.00 - [place] 0.00 ng/mL [facility] LABORATORY Comment: The 99th percentile [...] CK, Total 124 0 - 200 unit/L [facility] LABORATORY Specimen Anatomical Collection Method Collection Time Receive d Time (Source) Location / / Volume Laterality Blood specimen 07/06/2017 8:10 AM 017 8:23 (specimen) EST AM EST Resulting Agency Comment Spec In Lab Daphne Shahid MD CHEMISTRY ORDERABLES Performing Organization Address City/[facility]/ZIP Code Phon e Number [address] Magnesium (07/06/2017 8:10 AM EST) P athologist Signature Magnesium 0.84 0.69 - 1.07 [facility] mmol/L [facility] LABORATORY Specimen Anatomical Collection Method Collection Time Receive d Time (Source) Location / / Volume Laterality Blood specimen 07/06/2017 8:10 AM 017 8:21 (specimen) EST AM EST Resulting Agency Comment Spec In Lab Daphne Shahid MD CHEMISTRY ORDERABLES Performing Organization Address City/[facility]/[place] [address] (ABNORMAL) Basic Metabolic Panel (non-fasting) (07/06/2017 8:10 AM EST) athologist Signature Glucose Lvl 199 65 - 199 [facility] mg/dL [facility] LABORATORY Comment: [...] mmol/L [facility] LABORATORY CO2 27 22 - 31 mmol/L [facility] [...] or in patients with acute kidney failure. [email or web address] [email or web address] Specimen Anatomical Collection Method Collection Time Receive d Time (Source) Location / / Volume Laterality Blood specimen 07/06/2017 8:10 AM 017 8:21 (specimen) EST AM EST Resulting Agency Comment Spec In Lab Daphne Shahid MD CHEMISTRY ORDERABLES Performing Organization Address City/State/[place] [address] POCT Glucose (07/06/2017 7:34 AM EST) P athologist Signature POC Glucose 198 65 - 199 [facility] mg/dL [facility] LABORATORY Comment: Supplemental ranges: <140 mg/dL before meals <180 mg/dL all other times of the day Specimen Anatomical Collection Method Collection Time Receive d Time (Source) Location / / Volume Laterality Blood specimen 07/06/2017 7:34 AM 017 7:34 (specimen) EST AM EST Daphne Shahid MD POINT OF CARE TEST ORDERABLE S Performing Organization Address City/State/ZIP Code Phon e Number [address] POCT Glucose (07/06/2017 7:03 AM EST) P athologist Signature POC Glucose 181 65 - 199 [facility] mg/dL [facility] LABORATORY Comment: Supplemental ranges: <140 mg/dL before meals <180 mg/dL all other times of the day Specimen Anatomical Collection Method Collection Time Receive d Time (Source) Location / / Volume Laterality Blood specimen 07/06/2017 7:03 AM 017 7:03 (specimen) EST AM EST Daphne Shahid MD POINT OF CARE TEST ORDERABLE S Performing Organization Address City/State/[place] [address] XR Chest PA or [...] Signature POC Glucose 172 65 - 199 [facility] mg/dL [facility] LABORATORY Comment: Supplemental ranges: <140 mg/dL before meals <180 mg/dL all other times of the day Specimen Anatomical Collection Method Collection Time Receive d Time (Source) Location / / Volume Laterality Blood specimen 07/06/2017 6:21 AM 017 6:21 (specimen) EST AM EST Daphne Shahid MD POINT OF CARE TEST ORDERABLE S Performing Organization Address City/[facility]/[place] [address] POCT Glucose (07/06/2017 5:08 AM EST) athologist Signature POC Glucose 154 65 - 199 [facility] LABOR[facility]ORY Comment: Supplemental ranges: <140 mg/dL before meals <180 mg/dL all other times of the day Specimen Anatomical Collection Method Collection Time Receive d Time (Source) Location / / Volume Laterality Blood specimen 07/06/2017 5:08 AM 017 5:08 (specimen) EST AM EST Daphne Shahid MD POINT OF CARE TEST ORDERABLE S Performing Organization Address City/State/[place] [address] POCT Glucose (07/06/2017 4:05 AM EST) athologist Signature POC Glucose 142 65 - 199 [facility] mg/dL [facility] LABORATORY Comment: Supplemental ranges: <140 mg/dL before meals <180 mg/dL all other times of the day Specimen Anatomical Collection Method Collection Time Receive d Time (Source) Location / / Volume Laterality Blood specimen 07/06/2017 4:05 AM 017 4:05 (specimen) EST AM EST Daphne Shahid MD POINT OF CARE TEST ORDERABLE S Performing Organization Address City/[facility]/ZIP Code Phon e Number [address] POCT Glucose (07/06/2017 3:00 AM EST) athologist Signature POC Glucose 116 65 - 199 [facility] mg/dL [facility] LABORATORY Comment: Supplemental ranges: <140 mg/dL before meals <180 mg/dL all other times of the day Specimen Anatomical Collection Method Collection Time Receive d Time (Source) Location / / Volume Laterality Blood specimen 07/06/2017 3:00 AM 017 3:00 (specimen) EST AM EST Daphne Shahid MD POINT OF CARE TEST ORDERABLE S Performing Organization Address City/[facility]/[place] [address] Potassium (07/06/2017 2:20 AM EST) athologist Signature Potassium 3.9 3.5 - 5.0 [facility] mmol/L [facility] LABORATORY Comment: Please note: [...] Shahid MD CHEMISTRY ORDERABLES Performing Organization Address City/[facility]/ZIP Code Phon e Number [place] [phone]OS[address] Differential, Automated (07/06/2017 2:20 AM EST) P athologist Signature Neutrophils % 72.9 % [facility] LABORATORY Neutr Abs (ANC) 5.53 1.70 - [facility] 6.10 [facility] x10(3)/[facility] LABORATORY Lymphocytes % 16.4 % [facility] LABORATORY Lymphocytes Abs 1.2 0.9 - 3.2 [facility] x10(3)/[facility] LABORATORY Monocytes % 9.4 % [facility] Monocyte Abs 0.7 0.3 - 0.9 [facility] x10(3)/[facility] LABORATORY Eosinophils % 0.5 % [facility] LABORATORY Eosinophils Abs 0.0 0.0 - 0.4 [facility] x10(3)/[facility] LABORATORY Basophils % 0.4 % [facility] LABORATORY Basophils Abs 0.0 0.0 - 0.1 [facility] x10(3)/[facility] LABORATORY Immature Gran % 0.40 % [facility] LABORATORY Comment: Immature granulocytes(IG's)percentage an d absolute count will include metamyelocytes, myelocytes, and promyelo cytes. Blood smears from CBCs yielding IG's will be scanned manually for concor dance. If this scan disagrees with the automated IG or if promyelocytes are not ed, a manual differential will be performed. Melisa Gran Abs 0.03 0.00 - 0.04 x10(3)/[facility] MAR Y [facility] LABORATORY Specimen Anatomical Collection Method Collection Time Receive d Time (Source) Location / / Volume Laterality Blood specimen 07/06/2017 2:20 AM 017 2:33 (specimen) EST AM EST Resulting Agency Comment Spec In Lab Daphne Shahid MD HEMATOLOGY ORDERABLES Performing Organization Address City/State/ZIP Code Phon e Number [place] [phone] (ABNORMAL) Hemogram (07/06/2017 2:20 AM EST) Analysis Performed At Patho logist Time Signature WBC 7.6 4.0 - 9.5 [facility] x10(3)/[facility] LABORATORY RBC 4.52 (L) 4.58 - [facility] 5.54 [facility] x10(6)/[facility] LABORATORY Hemoglobin 13.4 (L) 13.7 - [facility] 16.5 gm/dL [facility] LABORATORY Hematocrit 39.7 (L) 40.5 - [facility] 48.5 % [facility] LABORATORY MCV 87.8 82.9 - [facility] 93.1 [facility] LABORATORY MCH 29.6 27.5 - [facility] 32.1 pg [facility] LABORATORY MCHC 33.8 32.0 - [facility] 35.7 gm/dL [facility] LABORATORY Platelets 189 145 - 357 [facility] x10(3)/[facility] LABORATORY RDWSD 45.6 (H) 36.0 - [facility] 45.0 [facility] LABORATORY RDWCV 14.3 (H) 11.4 - [facility] 13.8 % [facility] LABORATORY MPV 9.1 7.6 - 12.9 [facility] LABORATORY nRBC % Auto 0.0 % [facility] LABORATORY nRBC Abs Auto 0.000 0.000 - [facility] 0.000 [facility] x10(3)/[facility] LABORATORY Specimen Anatomical Collection Method Collection Time Receive d Time (Source) Location / / Volume Laterality Blood specimen 07/06/2017 2:20 AM 017 2:33 (specimen) EST AM EST Resulting Agency Comment Spec In Lab Daphne Shahid MD HEMATOLOGY ORDERABLES Performing Organization Address City/State/[place] [address] (ABNORMAL) APTT (07/06/2017 2:20 AM EST) P athologist Signature PTT 52 (H) 25 - 35 sec [facility] LABORATORY Comment: The recommended therapeutic range for fu ll dose, unfractionated heparin at [facility] is 80 ? 114 seconds. [...] Address City/State/ZIP Code Phon e Number [address] POCT Glucose (07/06/2017 2:20 AM EST) athologist Signature POC Glucose 115 65 - 199 [facility] mg/dL [facility] LABORATORY Comment: Supplemental ranges: <140 mg/dL before meals <180 mg/dL all other times of the day Specimen Anatomical Collection Method Collection Time Receive d Time (Source) Location / / Volume Laterality Blood specimen 07/06/2017 2:20 AM 017 2:20 (specimen) EST AM EST Daphne Shahid MD POINT OF CARE TEST ORDERABLE S Performing Organization Address City/[facility]/[place] [address] (ABNORMAL) Cardiac Enzymes (LEB/CGP) (07/06/2017 2:20 AM EST) athologist [facility] Troponin-T 2.13 (H) 0.00 - [place] 0.00 ng/mL [facility] LABORATORY Comment: The 99th percentile [...] CK, Total 129 0 - 200 unit/L [facility] LABORATORY Specimen Anatomical Collection Method Collection Time Receive d Time (Source) Location / / Volume Laterality Blood specimen 07/06/2017 2:20 AM 017 2:33 (specimen) EST AM EST Resulting Agency Comment Spec In Lab Daphne Shahid MD CHEMISTRY ORDERABLES Performing Organization Address City/State/ZIP Code Phon e Number [place] [phone] (ABNORMAL) Hemoglobin A1c (07/06/2017 [...] [id number] Est Avg Gluc See note mg/dL [place] [...] with hemoglobinopathies. Additional resources are available on [facility] ADA website. Macario HAMMOND, Ruthann J, Deysi R, et al. ??Tr anslating the A1C assay into estimated average glucose values. ??Diabetes Care 2008:31(8):2459-1378. Specimen Anatomical Collection Method Collection Time Receive d Time (Source) Location / / Volume Laterality Blood specimen 07/06/2017 2:20 AM 017 2:34 (specimen) EST AM EST Resulting Agency Comment Spec In Lab Daphne Shahid MD CHEMISTRY ORDERABLES Performing Organization Address City/State/[place] [address] (ABNORMAL) Lipid Panel (07/06/2017 2:20 AM EST) [facility] Method Time Signature Chol, Total 150 <=239 [place] mg/dL [facility] LABORATORY Triglycerides 129 <=199 [place] mg/dL [facility] LABORATORY HDL 32 (L) >=40 [place] mg/dL [facility] LABORATORY LDL Cholesterol 92 <=190 [place] mg/dL [facility] LABORATORY Chol/HDL Ratio 4.7 ratio [facility] LABORATORY Lipid See Note [place] Interpretation [facility] LABORATORY Comment: Lipid management should be guided by a p atient? s ASCVD risk, goals and preferences. ACC/AHA Guidelines recommend high intens ity statin if clinical ASCVD or LDL greater than or equal to 190 mg/dL. [email or web address] [email or web address] Adults aged 40-75 with LDL 70-189 mg/dL should have their 10 year ASCVD risk estimated with the ACC/AHA ASCVD risk es timator http://tools.acc.org/GUOEF-Iokt-Lvsicymk r/ Statin should be discussed if risk [...] Shahid MD CHEMISTRY ORDERABLES Performing Organization Address City/[facility]/ZIP [facility] Phon e Number [address] POCT Glucose (07/06/2017 1:09 AM EST) athologist Signature POC Glucose 121 65 - 199 [facility]/dL [facility] LABORATORY Comment: Supplemental ranges: <140 mg/dL before meals <180 mg/dL all other times of the day Specimen Anatomical Collection Method Collection Time Receive d Time (Source) Location / / Volume Laterality Blood specimen 07/06/2017 1:09 AM 017 1:09 (specimen) EST AM EST Daphne Shahid MD POINT OF CARE TEST ORDERABLE S Performing Organization Address City/[facility]/ZIP [facility] Phon e Number [address] POCT Glucose (07/06/2017 12:06 AM EST) P athologist Signature POC Glucose 147 65 - 199 [facility] mg/dL [facility] LABORATORY Comment: Supplemental ranges: <140 mg/dL before meals <180 mg/dL all other times of the day Specimen Anatomical Collection Method Collection Time Receive d Time (Source) Location / / Volume Laterality Blood specimen 07/06/2017 12:06 7 (specimen) AM EST 12:06 AM EST Daphne Shahid MD POINT OF CARE TEST ORDERABLE S Performing Organization Address City/State/[place] [address] (ABNORMAL) POCT Glucose (07/05/2017 10:56 PM EST) athologist Signature POC Glucose 200 (H) 65 - 199 [place] mg/dL [facility] LABORATORY Comment: Supplemental ranges: <140 mg/dL before meals <180 mg/dL all other times of the day Specimen Anatomical Collection Method Collection Time Receive d Time (Source) Location / / Volume Laterality Blood specimen 07/05/2017 10:56 7 (specimen) PM EST 10:56 PM EST Daphne Shahid MD POINT OF CARE TEST ORDERABLE S Performing Organization Address City/State/[place] [address] (ABNORMAL) POCT Glucose (07/05/2017 10:05 PM EST) athologist Signature POC Glucose 225 (H) 65 - 199 [place] mg/dL [facility] LABORATORY Comment: Supplemental ranges: <140 mg/dL before meals <180 mg/dL all other times of the day Specimen Anatomical Collection Method Collection Time Receive d Time (Source) Location / / Volume Laterality Blood specimen 07/05/2017 10:05 7 (specimen) PM EST 10:05 PM EST Daphne Shahid MD POINT OF CARE TEST ORDERABLE S Performing Organization Address City/State/[place] [address] (ABNORMAL) POCT Glucose (07/05/2017 9:02 PM EST) athologist Signature POC Glucose 301 (H) 65 - 199 [place] mg/dL [facility] LABORATORY Comment: Supplemental ranges: <140 mg/dL before meals <180 mg/dL all other times of the day Specimen Anatomical Collection Method Collection Time Receive d Time (Source) Location / / Volume Laterality Blood specimen 07/05/2017 9:02 PM 017 9:02 (specimen) EST PM EST Daphne Shahid MD POINT OF CARE TEST ORDERABLE S Performing Organization Address City/State/ZIP Code Phon e Number [place] [phone] XR Chest PA or [...] 474 ms MUSE SYSTEM (Bezet) Calculated P Pinch 50 degrees MUSE SYSTEM Calculated R Pinch -28 degrees MUSE SYSTEM Calculated T Pinch 90 degrees MUSE SYSTEM INTERPRETATION Sinus tachycardia [...] (ABNORMAL) Differential, Automated (07/05/2017 8:20 PM EST) [facility] gist Method Time Signature Neutrophils % 88.4 % [facility] LABORATORY Neutr Abs (ANC) 9.08 (H) 1.70 - [facility] 6.10 [facility] x10(3)/[facility] LABORATORY Lymphocytes % 7.0 % [facility] LABORATORY Lymphocytes Abs 0.7 (L) 0.9 - 3.2 [facility] x10(3)/[facility] LABORATORY Monocytes % 3.7 % [facility] LABORATORY Monocyte Abs 0.4 0.3 - 0.9 [facility] x10(3)/[facility] LABORATORY Eosinophils % 0.1 % [facility] LABORATORY Eosinophils Abs 0.0 0.0 - 0.4 [facility] x10(3)/[facility] LABORATORY Basophils % 0.2 % [facility] LABORATORY Basophils Abs 0.0 0.0 - 0.1 [facility] x10(3)/[facility] LABORATORY Immature Gran % 0.60 % [facility] LABORATORY Comment: [...] Organization Address City/State/[place] [address] (ABNORMAL) Hemogram (07/05/2017 8:20 PM EST) Analysis Performed At Patho logist Time Signature WBC 10.3 (H) 4.0 - 9.5 [facility] x10(3)/[facility] LABORATORY RBC 4.64 4.58 - [facility] SU 5.54 [facility] x10(6)/[facility] LABORATORY Hemoglobin 14.1 13.7 - [facility] 16.5 gm/dL [facility] LABORATORY Hematocrit 40.8 40.5 - [facility] 48.5 % [facility] LABORATORY MCV 87.9 82.9 - [facility] 93.1 [facility] LABORATORY MCH 30.4 27.5 - [facility] SU 32.1 pg [facility] LABORATORY MCHC 34.6 32.0 - [facility] 35.7 gm/dL [facility] LABORATORY Platelets 204 145 - 357 [facility] x10(3)/[facility] LABORATORY RDWSD 46.1 (H) 36.0 - [facility] SU 45.0 [facility] LABORATORY RDWCV 14.5 (H) 11.4 - [facility] SU 13.8 % [facility] LABORATORY MPV 9.7 7.6 - 12.9 [facility] LABORATORY nRBC % Auto 0.0 % [facility] LABORATORY nRBC Abs Auto 0.000 0.000 - [place] 0.000 [facility] x10(3)/[facility] LABORATORY Specimen Anatomical Collection Method Collection Time Receive d Time (Source) Location / / Volume Laterality Blood specimen 07/05/2017 8:20 PM 017 8:27 (specimen) EST PM EST Resulting Agency Comment Spec In Lab Daphne Shahid MD HEMATOLOGY ORDERABLES Performing Organization Address City/[facility]/ZIP Code Phon e Number [address] APTT (07/05/2017 8:20 PM EST) athologist Signature PTT 32 25 - 35 sec [facility] LABORATORY Comment: The recommended therapeutic range for fu ll dose, unfractionated heparin at [facility] is 80 ? 114 seconds. [...] Shahid MD HEMATOLOGY ORDERABLES Performing Organization Address [facility] [place] [address] (ABNORMAL) Cardiac Enzymes (LEB/CGP) (07/05/2017 8:20 PM EST) athologist Signature Troponin-T 2.11 (H) 0.00 - [facility] 0.00 ng/mL [facility] LABORATORY Comment: The 99th percentile [...] CK, Total 149 0 - 200 unit/L [facility] LABORATORY Specimen Anatomical Collection Method Collection Time Receive d Time (Source) Location / / Volume Laterality Blood specimen 07/05/2017 8:20 PM 017 8:27 (specimen) EST PM EST Resulting Agency Comment Spec In Lab Daphne Shahid MD CHEMISTRY ORDERABLES Performing Organization Address City/[facility]/[place] [address] (ABNORMAL) Magnesium (07/05/2017 8:20 PM EST) P athologist Signature Magnesium 0.68 (L) 0.69 - 1.07 [facility] mmol/L [facility] Specimen Anatomical Collection Method Collection Time Receive d Time (Source) Location / / Volume Laterality Blood specimen 07/05/2017 8:20 PM 017 8:27 (specimen) EST PM EST Resulting Agency Comment Spec In Lab Daphne Shahid MD CHEMISTRY ORDERABLES Performing Organization Address City/State/ZIP [facility] [address] (ABNORMAL) Basic Metabolic Panel (non-fasting) (07/05/2017 8:20 PM EST) P athologist Signature Glucose Lvl 321 (H) 65 - 199 [facility] mg/dL [facility] Comment: Diabetes: >=200 mg/dL plus symp toms BUN 20 10 - 20 mg/dL [facility] Creatinine 1.12 0.80 - 1.50 mg/dL [facility] Sodium 139 135 - 145 mmol/L [facility] Potassium 3.8 3.5 - 5.0 mmol/L [facility] Comment: Please note: ??Patients with WBC >100,00 0 may have falsely elevated Potassium levels. ??For accurate Potassium quantif ication in these patients send serum separator tube (gold top) for subsequent determinations. ??Contact the Clinical Chemistry Laboratory if there are any qu estions. Chloride 98 98 - 107 mmol/L [facility] CO2 27 22 - 31 mmol/L [facility] [...] or in patients with acute kidney failure. http://Power2SME/DHnkdep http://Power2SME/DHMCnkf Specimen Anatomical Collection Method Collection Time Receive d Time (Source) Location / / Volume Laterality Blood specimen 07/05/2017 8:20 PM 017 8:27 (specimen) EST PM EST Resulting Agency Comment Spec In Lab Daphne Shahid MD CHEMISTRY ORDERABLES Performing Organization Address City/State/[place] [address] (ABNORMAL) POCT Glucose (07/05/2017 7:32 PM EST) P athologist Signature POC Glucose 296 (H) 65 - 199 [facility] mg/dL [facility] Comment: Supplemental ranges: <140 mg/dL before meals <180 mg/dL all other times of the day Specimen Anatomical Collection Method Collection Time Receive d Time (Source) Location / / Volume Laterality Blood specimen 07/05/2017 7:32 PM 017 7:32 (specimen) EST PM EST Daphne Shahid MD POINT OF CARE TEST ORDERABLE S Performing Organization Address City/State/[place] [address] CARDIAC CATHETERIZATION (07/05/2017 6:47 PM EST) Specimen (Source) Anatomical Location Collection Method / Collectio n Time Received Time / Laterality Volume Narrative CARDIOMAC SYSTEM - 07/05/2017 7:27 PM ES T ?[facility] ? Cardiac Cathete rization/Intervention Report ? Patient Name: Natalya, Gregory ? Procedure Date: 07/05/2017 ? A #: [id number] ? Primary Physician: Jet Mckenna ? Case #: [id number] ? File Name: [id number] ? Catheterization Order Number: [id number] ? [facility] ? Final Report [place], [place] ? Patient Name: ? Gregory Natalya ?ID#: ?[id number] ? : ?1945 ? Procedure Date: ? [...] presented with: non -STEMI (w/i 7 days). [place] ?Cardiovascular Society angina c lass was IV. [...] angio graphy and IABP insertion in general laborer. ? Jet Mckenna M.D. ? Electronically Signed by: Jet bunch M.D. ? Report Finalized: 07/05/2017 ??19:23 ? Report Last Ammended: 10/26/2017 ??10:29 ? Procedure Note Jet Mckenna MD - 10/26/2017Formatt ing of this note might be different from the original. [facility] Cardiac Catheterization/Intervention Re port Patient Name: Natalya Gregory Procedure Date: 07/05/2017 A #: [id number] Primary Physician: Jet Mckenna Case #: [id number] File Name: [id number] Catheterization Order Number: [id number] [facility] Final Report [place], [place] Patient Name: Gregory Hoang ID#: [id number] : 1945 Procedure Date: July 05, [...] presented with: non-STEMI ( w/i 7 days). [place] [employer] angina class was IV. 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 Jet Mckenna M.D. Electronically Signed by: [...] E ? (Age): 1945(72y) Med Rec#: ? [id number] ?Sex: ?M ? Site Loc: ? [facility] ?Ht / Wt: ??173(cm)/86(kg) Pt. Loc: ?CCU ? BSA: ?2 Study Date: ?? 07/05/2017 ?Pt. Type: Inpatient Tape: ? Referring: Daphne Shahid ([id number]) Referring: MANDA ALCANTAR Reading: Blade Preston ([id number]) Probe Operator: Dayami Paula BA, RUST Diagnosis: *ICD-10-PCS Non-ST [...] E-wave Vmax ?0.8 ?m/sec ? MV deceleration [id number] ?msec ? MV A-wave Vmax ?0.8 ?m/sec [...] ? Mid-Inferior ?Akinetic ? Mid-Inferoseptal ?Hypokinetic ? [place]-Septal ? Akinetic ? [place]-Anterior ? Hypokinetic ? [place]-Lateral ?Hypokinetic ? [place]-Inferior ? Akinetic ? [place]-Tip ?Akinetic ? This report has been electronically sign ed by: _ Blade Preston MD ? 07/06/2017 08 :53:15 Images reviewed and interpretation verif ied [facility] Cardiac Ultrasound Laboratory Procedure Note Blade Preston MD - 07/06/2017Formatt ing of this note might be different from the original. Procedure: Transthoracic Echocardiogram Patient: NATALYA MCBRIDE(Age): [birth year]72y) Med Rec#: [id number] Sex: M Site Loc: [facility] Ht / Wt: 173(cm)/86(kg) Pt. Loc: [facility] BSA: 2 Study Date: 07/05/2017 Pt. Type: Inpatie nt Tape: Referring: Daphne Shahid ([id number]) Referring: MANDA ALCANTAR Reading: Blade Preston ([id number]) Probe Operator: Dayami Paula BA, RUST Diagnosis: *ICD-10-PCS Non-ST [...] MV E-wave Vmax 0.8 m/sec MV deceleration [id number] msec MV A-wave Vmax 0.8 m/sec MV [...] Hypokinetic Mid-Posterolateral Hypokinetic Mid-Inferior Akinetic Mid-Inferoseptal Hypokinetic [place]-Septal Akinetic [place]-Anterior Hypokinetic [place]-Lateral Hypokinetic [place]-Inferior Akinetic [place]-Tip Akinetic This report has been electronically sign ed by: _ Blade Preston MD 07/06/2017 08:53:15 Images reviewed and interpretation [facility] Cardiac Ultrasound Laboratory Daphne Shahid MD ECHO ORDERABLES Performing Organization Address City/State/ZIP Code Phon e Number [facility] Differential, Automated (07/05/2017 4:55 PM EST) P athologist Signature Neutrophils % 77.0 % [facility] Neutr Abs (ANC) 5.26 1.70 - [facility] 6.10 [facility] x10(3)/[facility] LABORATORY Lymphocytes % 13.3 % [facility] Lymphocytes Abs 0.9 0.9 - 3.2 [facility] x10(3)/[facility] LABORATORY Monocytes % 8.2 % [facility] Monocyte Abs 0.6 0.3 - 0.9 [facility] x10(3)/[facility] LABORATORY Eosinophils % 0.7 % [facility] Eosinophils Abs 0.0 0.0 - 0.4 [facility] x10(3)/[facility] LABORATORY Basophils % 0.4 % [facility] Basophils Abs 0.0 0.0 - 0.1 [facility] x10(3)/[facility] LABORATORY Immature Gran % 0.40 % [facility] Comment: Immature granulocytes(IG's)percentage an d absolute count will include metamyelocytes, myelocytes, and promyelo cytes. Blood smears from CBCs yielding IG's will be scanned manually for concor dance. If this scan disagrees with the automated IG or if promyelocytes are not ed, a manual differential will be performed. Melisa Gran Abs 0.03 0.00 - 0.04 x10(3)/[facility] Y [facility] LABORATORY Specimen Anatomical Collection Method Collection Time Receive d Time (Source) Location / / Volume Laterality Blood specimen 07/05/2017 4:55 PM 017 5:24 (specimen) EST PM EST Resulting Agency Comment Spec In Lab Daphne Shahid MD HEMATOLOGY ORDERABLES Performing Organization Address City/State/[place] [address] (ABNORMAL) Hemogram (07/05/2017 4:55 PM EST) Analysis Performed At Patho logist Time Signature WBC 6.8 4.0 - 9.5 [facility] x10(3)/[facility] LABORATORY RBC 4.67 4.58 - [place] SU 5.54 [facility] x10(6)/[facility] LABORATORY Hemoglobin 14.0 13.7 - [facility] 16[facility] gm/dL [facility] Hematocrit 41.0 40.5 - [facility] 48.5 % [facility] MCV 87.8 82.9 - [facility] 93.1 [facility] LABORATORY MCH 30.0 27.5 - [place] SU 32.1 pg [facility] MCHC 34.1 32.0 - [facility] 35.7 gm/dL [facility] Platelets 197 145 - 357 [facility] x10(3)/[facility] LABORATORY RDWSD 46.4 (H) 36.0 - [facility] SU 45.0 [facility] LABORATORY RDWCV 14.5 (H) 11.4 - [facility] SU 13.8 % [facility] MPV 9.7 7.6 - 12.9 [facility] nRBC % Auto 0.0 % [facility] nRBC Abs Auto 0.000 0.000 - [place] SU 0.000 [facility] x10(3)/[facility] LABORATORY Specimen Anatomical Collection Method Collection Time Receive d Time (Source) Location / / Volume Laterality Blood specimen 07/05/2017 4:55 PM 017 5:24 (specimen) EST PM EST Resulting Agency Comment Spec In Lab Daphne Shahid MD HEMATOLOGY ORDERABLES Performing Organization Address City/State/[place] [address] (ABNORMAL) Cardiac Enzymes (LEB/CGP) (07/05/2017 4:55 PM EST) P athologist Signature Troponin-T 1.69 (H) 0.00 - [facility] 0.[facility] ng/mL [facility] Comment: The 99th percentile [...] CK, Total 191 0 - 200 unit/L [facility] Specimen Anatomical Collection Method Collection Time Receive d Time (Source) Location / / Volume Laterality Blood specimen 07/05/2017 4:55 PM 017 5:56 (specimen) EST PM EST Resulting Agency Comment Spec In Lab Daphne Shahid MD CHEMISTRY ORDERABLES Performing Organization Address City/[facility]/[place] [address] (ABNORMAL) pro-Brain Natriuretic Peptide (07/05/2017 4:55 PM EST) P athologist Signature ProBNP 1,598 (H) <=125 [facility] pg/mL [facility] Specimen Anatomical Collection Method Collection Time Receive d Time (Source) Location / / Volume Laterality Blood specimen 07/05/2017 4:55 PM 017 5:24 (specimen) EST PM EST Resulting Agency Comment Spec In Lab Daphne Shahid MD CHEMISTRY ORDERABLES Performing Organization Address City/[facility]/[place] [address] Magnesium (07/05/2017 4:55 PM EST) athologist Signature Magnesium 0.78 0.69 - 1.07 [facility] mmol/L [facility] Specimen Anatomical Collection Method Collection Time Receive d Time (Source) Location / / Volume Laterality Blood specimen 07/05/2017 4:55 PM 017 5:24 (specimen) EST PM EST Resulting Agency Comment Spec In Lab Daphne Shahid MD CHEMISTRY ORDERABLES Performing Organization Address City/State/[place] [address] (ABNORMAL) Basic Metabolic Panel (non-fasting) (07/05/2017 4:55 PM EST) athologist Signature Glucose Lvl 230 (H) 65 - 199 [facility] mg/dL [facility] Comment: [...] or in patients with acute kidney failure. http://Power2SME/DHnkdep http://Friend Trusted.com/DHMCnkf Specimen Anatomical Collection Method Collection Time Receive d Time (Source) Location / / Volume Laterality Blood specimen 07/05/2017 4:55 PM 017 5:24 (specimen) EST PM EST Resulting Agency Comment Spec In Lab Daphne Shahid MD CHEMISTRY ORDERABLES Performing Organization Address City/[facility]/[place] [address] (ABNORMAL) APTT (07/05/2017 4:55 PM EST) P athologist Signature PTT 41 (H) 25 - 35 sec [facility] Comment: The recommended therapeutic range for fu ll dose, unfractionated heparin at [facility] is 80 ? 114 seconds. [...] Shahid MD HEMATOLOGY ORDERABLES Performing Organization Address City/[facility]/[place] [address] (ABNORMAL) POCT Glucose (07/05/2017 4:53 PM EST) P athologist Signature POC Glucose 208 (H) 65 - 199 [facility] mg/dL [facility] Comment: Supplemental ranges: <140 mg/dL before meals <180 mg/dL all other times of the day Specimen Anatomical Collection Method Collection Time Receive d Time (Source) Location / / Volume Laterality Blood specimen 07/05/2017 4:53 PM 017 4:53 (specimen) EST PM EST Daphne Shahid MD POINT OF CARE TEST ORDERABLE S Performing Organization Address City/[facility]/[place] [address] EKG 12 Lead (07/05/2017 4:32 PM EST) Component Value Ref Range Test Analysis Performed Pathologis t Method Time At Signature Ventricular rate 97 BPM MUSE SYSTEM Atrial Rate 97 BPM MUSE SYSTEM P-R Interval 148 ms MUSE SYSTEM QRS Duration 96 ms MUSE SYSTEM Q-T Interval 364 ms MUSE SYSTEM QTC Calculated 462 ms MUSE SYSTEM (Bezet) Calculated P Pinch 48 degrees MUSE SYSTEM Calculated R Pinch -33 degrees MUSE SYSTEM Calculated T Pinch 98 degrees MUSE SYSTEM INTERPRETATION Normal sinus [...] Coronary atherosclerosis of unspecified type of vessel, [place] or graft Cardiomyopathy, ischemic Other specified forms [...] post-op day 1 in the AM Give MO if unable to take PO, Routine Given [...] dose on Wed07/07/17 at 2100, Until Discontinued, [place] teeth, Routine Given 07/08/2017 10:06 PM EST [...] or norepinephrine is ineffective. Call pager # [phone] if initiated. Rate/Dose Change 07/08/2017 7:01 PM [...] if phenyleprine and/or vasopressin ineffective.Call pager # [phone] if initiated., Routine Rate/Dose Change 07/09/2017 1:24 [...] L/min/M2. Maximum volume 2 L. Call warehouse receiving supervisor for additional fluid orders: pager #[phone]. Rate/Dose Verify 07/08/2017 4:00 AM EST 100 [...] post-op day 1 in the AM Give MO if unable to take PO, Routine atorvastatin [...] 25 mg 2000 (Given - Provider: Denice Jacobosn RN) 09 (Given - Provider: Myrna triplett RN) 25 mg, Oral, EVERY 12 HOURS SCHEDULED (2 times per day), First dose (after last modification) on Wed07/13/17 at 2100, Until Discontinued, Routine pantoprazole (PROTONIX) injection 40 mg(Linked Group 3 ) 0821 (See Alternative - Provider: More Luther RN) 0840 (See Alternative - Provider: Goerge Jones RN)0900 (Not Given - Provider: Em [...] post-op day 1 in the AM Give MO if unable to take PO
Routine Group [...]
Routine documented in this encounter Care Teams Brass Sorter Relationship Specialty Start Date End Date Lovely Vicente MD PCP - General 04/16/[address] [place] [address] documented as of this encounter
--- OUTSIDE RECORDS SUMMARY | 2022-03-23 09:42 | XMS_ITS | Encounter Summary ---
:1945 Author Organization [facility] [place] [address] Care Team Providers Name Role Phone Lovely Vicente MD Primary Care Provider Encounter Details Date Type Department Care Team Description 07/08/2017 Orders Only Cardiology [facility] [place] [address] Social History Tobacco Use Types Packs/Day [...] Nobles MD [facility] [address] [place], [place] [address] (Wo rk) 05/28/2022 Appointment Cardiology Zulma Dolan MD [facility] [address] [place] [address] (Wo rk) 05/28/2022 Laboratory Appointment Lab 05/28/2022 Office Visit Cardiology Zulma Dolan MD [facility] [place] [place] [address] Liz Poole PA [facility] [place] [address] 06/10/2022 Office Visit Dermatology Laura Scherer MD [facility] [address] [place], [place] [address] (Wo rk) documented as of this encounter Procedures Procedure Name Priority Date/Time Associated Diagnosis Comme nts TRANSESOPHAGEAL Routine 07/08/2017 Results for this ECHOCARDIOGRAM (AVELINO) procedu re are in the results section. documented in this encounter Results Transesophageal Echocardiogram (AVELINO) (07/08/2017) Specimen (Source) Anatomical Location Collection Method / Collectio n Time Received Time / Laterality Volume 07/08/2017 Narrative [facility] - 07/08/2017 12:25 PM ES T Procedure: ?Transesophageal Echocardiogram Patient: ?NATALYA Mccollum ? (Age): 1945(72y) Med Rec#: ? [id number] ?Sex: ?M ? Site Loc: ? Ht / Wt: ??(cm)/ (kg) ? Pt. Loc: ? Study Date: ?? 07/07/2017 ?Pt. Type: Tape: ? Referring: Yuan Retana Reading: Yifan Perez MD ([id number]) Performing: Yifan Perez MD ([id number]) Diagnosis: SUMMARY: 1. Intraoperative AVELINO performed at the [facility] of Dr. Mike for the diagnosis and [...] ? Mid-Inferior ?Hypokinetic ? Mid-Inferoseptal ?Hypokinetic ? [place]-Septal ? Hypokinetic ? [place]-Anterior ? Hypokinetic ? [place]-Lateral ?Hypokinetic ? [place]-Inferior ? Hypokinetic ? [place]-Tip ?Not Seen ? This report has been electronically sign ed by: _ Yifan Perez MD ? 07/08/2017 12 :25:18 Images reviewed and interpretation verif ied [facility] Cardiac Ultrasound Laboratory Procedure Note Yifan Perez MD - 07/08/2017Formatt ing of this note might be different from the original. Procedure: Transesophageal Echocardiogra m Patient: NATALYA MCBRIDE(Age): [birth year]72y) Med Rec#: [id number] Sex: M Site Loc: Ht / Wt: (cm)/ (kg) Pt. Loc: Study Date: 07/07/2017 Pt. Type: Tape: Referring: Yuan Retana Reading: Yifan Perez MD ([id number]) Performing: Yifan Perez MD ([id number]) Diagnosis: SUMMARY: 1. Intraoperative AVELINO performed at [...] Hypokinetic Mid-Posterolateral Hypokinetic Mid-Inferior Hypokinetic Mid-Inferoseptal Hypokinetic [place]-Septal Hypokinetic [place]-Anterior Hypokinetic [place]-Lateral Hypokinetic [place]-Inferior Hypokinetic [place]-Tip Not Seen This report has been electronically sign ed by: _ Yifan Perez MD 07/08/2017 12:25:18 Images reviewed and interpretation elvie hwang [facility] Cardiac Ultrasound Laboratory Unknown ECHO ORDERABLES Performing Organization Address City/State/ZIP Code Phon e Number [facility] documented in this encounter Visit Diagnoses Not on filedocumented in this encounter Care Teams Corn Sheller Relationship Specialty Start Date End Date Lovely Vicente MD PCP - General 04/16/[address] [place] [address] documented as of this encounter
--- OUTSIDE RECORDS SUMMARY | 2022-03-23 09:43 | XMS_ITS | Encounter Summary ---
:1945 [place] [address] Care Team Providers Name Role Phone Lovely Vicente MD Primary Care Provider Reason for Visit Auth/Cert Specialty Diagnoses / Procedures Referred By Contact Refer red To Contact Diagnoses STEMI (ST elevation myocardial infarction) NSTEMI STEMI Procedures CARDIAC CATHETERIZATION NAYE IPI Referral ID Status Reason Start Date Expiration Date Visits Requ ested Visits Authorized [id number] 1 1 Encounter Details Date Type Department Care Team Description 07/07/2017 Anesthesia Event Main Operating Room Yifan Jaime MD [facility] [place] [address] [facility] Ginny Murray MD [facility] [place] [address] [facility] [place] [address] Anesthesia Record Procedure Summary Procedure Name [...] 2342 LDA Cath/EP Sheath 07/05/17; 0606; 8 [place] 07/05/17 0606 by 1118 by (Fr); Right; Femoral [place]iana Park, Yane Cook, RN PIV 07/05/17; 1720; median 07/05/17 1720 by 07/11/17 2355 by vein (underside of arm), Prior, Yanet Maza, VAMSI Crum, Angela Gomes, left; 18 gauge; removed 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 SETUP WORKER per policy/procedure; 07/11/17; 2355 Intra-Aortic Balloon [...] Miller, Carrie L, Type: Cuffed; ETT Size: JAVA INTEGRATION DEVELOPER 8 mm; Santiago Blade: 2; Notes: Asleep, [...] Murray MD - 07/08/2017 5:08 PM EST [facility] Department of Anesthesiology Post-procedure Note Patient: Don Fatima Procedure Summary Date Anesthesia Start Anesthesia Stop Room / Location 07/07/17 1335 1836 [facility] OR [facility] MAIN OR Procedure Diagnosis Surgeon Responsible Provider @CABG, USING ARTERIAL GRAFT;SINGLE ARTERIAL GRAFT (WRVU 33.75) (N/A Chest); @CABG, TWO VENOUS GRAFTS & ARTERIAL GRAFT (WRVU 7.93) (N/A Chest); ENDOSCOPIC HARVEST VEIN(S) FOR CABG (WRVU 0.31) (Right Leg) (CAD) Yuan Freitas MD Hartman, Gregg S, MD All Anesthesia Providers: Anesthesiologist: Yifan Perez MD Health And Safety Instructor: Ginny Murray MD Most Recent Vitals: [...] at [facility] ENDOSCOPY ??? PRO THYROIDECTOMY 03/28/2013 THYROIDECTOMY, TOTAL OR COMPLETE performed by Manny Mcknight MD at [facility] MAIN OR Social History Substance Use [...] Nobles MD [facility] [address] [place], [place] [address] (Wo rk) 05/28/2022 Appointment Cardiology Zulma Dolan MD [facility] [place], [place] [address] (Wo rk) 05/28/2022 Laboratory Appointment Lab 05/28/2022 Office Visit Cardiology Zulma Dolan MD [facility] [place] [address] Liz Poole PA [facility] [place] [address] 06/10/2022 Office Visit Dermatology Laura Scherer MD [facility] [address] [place], [place] [address] (Wo rk) documented as of [...] mg documented in this encounter Care Teams Information Support Project Manager Relationship Specialty Start Date End Date Lovely Vicente MD PCP - General 04/16/15 [facility] [address] [place] [address] documented as of this encounter
--- OUTSIDE RECORDS SUMMARY | 2022-03-23 09:43 | XMS_ITS | Encounter Summary ---
:1945 Author Organization [facility] Address [facility] [place] [address] Care Team Providers Name Role Phone Lovely Vicente MD Primary Care Provider Reason for Visit Auth/Cert Specialty Diagnoses / Procedures Referred By Contact Refer red To Contact Diagnoses STEMI (ST elevation myocardial infarction) NSTEMI STEMI Procedures CARDIAC CATHETERIZATION NAYE IPI Referral ID Status Reason Start Date Expiration Date Visits Requ ested Visits Authorized [id number] 1 1 Encounter Details Date Type Department Care Team Description 07/07/2017 Surgery Main Operating Room Yuan Webber, @ CABG, USING ARTERIAL Barbara Ocampo MD GRAFT;SINGLE ARTERIAL Hospital [facility] GRAFT (WRVU 33.75) [facility] [place] [address] SURGERY [phone] [place], [place] 0[address] (Wo rk) Social History Tobacco [...] in this encounter Discharge Summaries Martha Teague, PLUGGER MAN - 07/14/2017 9:38 AM EST Inpatient - Discharge Summary Patient Name: Gregory Hoang Patient Age: 72 y.o. Birthdate: 1945 Language: Jordanian Race: White Ethnicity: Not nor Admit Date: [...] , @ 1:20p Patient to follow-up with Professor Of Pathology/heart failure team in one week. An appointment will be made for you. You may call [phone] Patient to follow-up with Cardiac Surgery, Dr. Yuan Webber, in ~ 4 weeks with CXR, EKG. Inpatient Provider Contact Information: [facility] Section of Cardiac Surgery [facility] [place] [facility] [address] FAX [phone] Discharge Diagnoses (Hospital Problems) Primary Diagnoses: CAD [...] 33.75) performed by Yuan Webber MD at [facility] OR ??? PRO CABG, ARTERY-VEIN, TWO N/A 07/07/2017 @CABG, TWO VENOUS GRAFTS & ARTERIAL GRAFT (WRVU 7.93) performed by Yuan Webber MD at [facility] OR ??? PRO COLONOSCOPY, REMV LESN, SNARE 01/16/2014 COLONOSCOPY, POLYPECTOMY, REMOVAL LESION BY SNARE performed by Nohemi Jaimes MD at [facility] ENDOSCOPY ??? PRO ENDOSCOPY W/VIDEO-ASST VEIN HARVEST, CABG Right 07/07/2017 ENDOSCOPIC HARVEST VEIN(S) FOR CABG (WRVU 0.31) performed by Yuan Webber MD at [facility] OR ??? PRO THYROIDECTOMY 03/28/2013 THYROIDECTOMY, TOTAL OR COMPLETE performed by Manny Mcknight MD at [facility] OR Prior To Admission Medications Prescriptions Prior to Admission Medication Sig Dispense Refill Last Dose ??? levothyroxine (SYNTHROID) 175 mcg Tablet Take 1 tablet by mouth daily. 90 tablet 3 07/05/2017 [id number] ??? ascorbic acid, vitamin C, (VITAMIN C) [...] Hospital Course: Gregory Hoang was admitted to [facility] on 07/05/2017 via the Cardiology Service. During his hospital course, he was taken emergently to the cathode washer for an ongoing STEMI. An IABP was [...] without incident. He voided normally after his [place] was removed. Anticoagulation plan for discharge is [...] not take or discontinue any prescription or kubp-jgo-yhixiqp medications without asking your doctor or pharmacist [...] day to have your insulin doses adjusted. [facility] Endocrine clinic office Discharge Instructions: Call your doctor if: You have a fever of greater than 101 degrees, shaking chills, if you develop redness or drainage from your incision sites, or if you have questions. Please call your surgeon's office if you have any discharge or drainage from your chest incision. Your surgeon, Dr. Yuan Webber and/or the Cardiac Surgery Physician Compress Machine Operator Team may be reached at [...] Dr. Yuan Webber. You may use a [place] Track or treadmill but avoid any pulling [...] friends, go to a movie, go to tenriism, etc. Heavy activities: No hunting, skiing, jogging, snow shoveling, snowmobiling, lawn mowing, swimming, golf or tennis until after your return appointment with the surgeon. Do not ride motorcycles, shipbeat's tractors or horses. Avoid the use of [...] , @ 1:20p Patient to follow-up with Professor Of Pathology/heart failure team in one week. Appointment will be made for you. You may call [phone] Patient to follow-up with Cardiac Surgery, Dr. Yuan Webber, in ~ 4 weeks with CXR, EKG. Cardiac Rehabilitation: Gregory Hoang was seen today regarding participation in the outpatient Phase 2 Cardiac Rehabilitation at [facility]. The patient agrees to a referral to this program. The referral will be sent at discharge and the patient should be contacted by the Program within 1- 2 weeks from discharge. ?? Future Appointments and Orders Future Appointments Provider Department Dept Phone 09/07/2017 3:00 PM LAB, THREE L Lab 3L [facility] [phone] 09/07/2017 4:00 PM Luz Prescott MD Endocrinology at [facility] [phone] Future Orders Complete By Expires EKG 12 Lead [EKG1 Custom] 08/14/2017 02/13/2018 Process Instructions: Scheduling Instructions: Questions: Which DH location will this be performed?: [place] Is a rhythm strip needed?: No If EKG Reason is Pre-op Evaluation, indicate diagnosis for surgery.: XR Chest PA & Lateral (Generic) [[id number] Custom] 08/14/2017 02/13/2018 Process Instructions: Scheduling Instructions: Questions: Where will study be performed?: [facility] Portable exam?: Reason for exam and clinical history: CABG x 3 Other pertinent information: Stat read required?: Date of injury if applicable: Requested Time: Referral to Cardiac Rehab [GBV917 Custom] As directed Process Instructions: If no progress note charted, please enter Clinical details in comments. Scheduling Instructions: Questions: My question or request is: s/p CABG. Cardiac rehab at [facility] Referral to Home Health - at DISCHARGE [WAD3832 CPT(R)] As directed Process Instructions: Scheduling Instructions: Comments: DOCUMENTATION FOR VNA SERVICES (INCLUDING THOSE PATIENTS WITH MEDICARE COVERAGE REQUIRING HOME VNA SERVICES AND/OR HOSPICE SERVICES) PATIENT'S LOCATION: Gregory Hoang [address] [place] [address] [place] [phone] (home) Telephone Information: Blend Plant Operator's Name: self In discussion with the attending physician, it is certified that this patient is under their care and that they, or a Nurse Practitioner, or Physician Compress Machine Operator who is working directly with [...] AGENCY: [facility] ([facility] [place] [employer]-is in [place] PHONE: [phone] FAX: [phone] RN orders: Cardiopulmonary assessment, incisional assessment, assess vital signs, assessment of rehab progress, medication management and effectiveness, home safety evaluation. Please draw INR if indicated and send result to:Dr Vicente [phone] PT ORDERS: Continue rehab for endurance, gait stability and strength with mobility and transfers. Home safety evaluation. Home exercise program if appropriate. Start of Care Date:24-48 hours after discharge SPECIAL INSTRUCTIONS: For any follow up questions, needs, or issues please call the Cardiac Surgery Office at [phone] FOR MEDICARE ONLY: (please delete this section [...] Questions: Agency name and contact information: [facility] Patient location post discharge: home What services are requested: Registered Nurse Physical Therapy Start date: Responsible MD post discharge contact info: PCP Arrangements for VNA/home care: As above. VN RN OR PCP TO PLEASE REMOVE CHEST TUBE SUTURES ON OR AFTER 07/17/2017 Signed: Martha Teague APRN [facility] Section of Cardiac Surgery [facility] [address] FAX [phone] Date: 07/14/2017 CC: MD Ivania Cr Betsy, PA [address] [place] [phone] documented in this encounter Discharge Instructions Discharge [...] day to have your insulin doses adjusted. [facility] Endocrine clinic office Patient InstructionsStMartha mcdonald APRN [...] not take or discontinue any prescription or gzwr-lzu-uilvskw medications without asking your doctor or pharmacist [...] day to have your insulin doses adjusted. [facility] Endocrine clinic office ? Discharge Instructions: ?? Call your doctor if: You have a fever of greater than 101 degrees, shaking chills, if you develop redness or drainage from your incision sites, or if you have questions. Please call your surgeon's office if you have any discharge or drainage from your chest incision. Your surgeon, Dr. Yuan Webber and/or the Cardiac Surgery Physician Compress Machine Operator Team may be reached at [...] Dr. Yuan Webber. You may use a [place] Track or treadmill but avoid any pulling [...] friends, go to a movie, go to tenriism, etc. ?? Heavy activities: No hunting, skiing, jogging, snow shoveling, snowmobiling, lawn mowing, swimming, golf or tennis until after your return appointment with the surgeon. Do not ride motorcycles, shipbeat's tractors or horses. Avoid the use of [...] @ 1:20p ?? Patient to follow-up with Professor Of Pathology/heart failure team in one week. An appointment has been made for you, you can call [phone] ?? Patient to follow-up with Cardiac Surgery, Dr. Yuan Webber, in ~ 4 weeks with CXR, EKG. ? Cardiac Rehabilitation: Gregory Hoang??was seen today regarding participation in the outpatient Phase 2 Cardiac Rehabilitation at [facility]. ?? The patient agrees to a referral to this program.? The referral will be sent at discharge and the patient should be contacted by the Program within 1- 2 weeks from discharge. ? Future Appointments and Orders Future Appointments Provider Department Dept Phone ?? 09/07/2017 3:00 PM LAB, THREE L Lab 3L [facility] [phone] ?? 09/07/2017 4:00 PM Luz Prescott MD Endocrinology at [place] [phone] Future Orders Complete By Expires ?? EKG 12 Lead [EKG1 Custom] 08/14/2017 02/13/2018 ?? Process Instructions: ? Scheduling Instructions: ? Questions: ? Which location will this be performed?: [facility] ?? Is a rhythm strip needed?: No ?? If EKG Reason is Pre-op Evaluation, indicate diagnosis for surgery.: ?? XR Chest PA & Lateral (Generic) [[id number] Custom] 08/14/2017 02/13/2018 ?? Process Instructions: ? Scheduling Instructions: ? Questions: ? Where will study be performed?: [facility] ?? Portable exam?: ?? Reason for exam and clinical history: CABG x 3 ?? Other pertinent information: ?? Stat read required?: ?? Date of injury if applicable: ?? Requested Time: ?? Referral to Cardiac Rehab [JTG015 Custom] As directed ? Process Instructions: ?? If no progress note charted, please enter Clinical details in comments. ?? Scheduling Instructions: ? Questions: ? My question or request is: s/p CABG. Cardiac rehab at [facility] ? 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 A letter describing our affiliations was reviewed with them and theywere educated about their right to choose where referrals are placed. Patient requests referral to [facility]. PHONE: [phone] FAX: [phone] Expected date of discharge: 07/14 Referral routed to the Editorial Assistant for matching with agency/vendor and to [...] day to have your insulin doses adjusted. [facility] Endocrine [facility] office Kathie Carrera APRN [facility] Endocrinology Diabetes Management Pager [phone] minutes of this 35 minute visit was spent with the patient in counseling on diabetes and treatment plan, reviewing all glucose and insulin data as well as relevant laboratory results with the patient, and coordination of care on the inpatient unit including nursing and primary team. 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 A letter describing our affiliations was reviewed with them and theywere educated about their right to choose where referrals are placed. Patient requests referral to : [facility] ([facility] [place] [employer]-is in [place] PHONE: [phone] FAX: [phone]. Expected date of discharge: 07/14/17 Referral routed to the Editorial Assistant for matching with agency/vendor and to [...] hours. If BG remains greater than 240, uacsqb63 units (no more than three times) &??call [...] #6 s/p CABG X3. FSBG 80 at [place], reports no symptoms but did drink some [...] Will continue to follow Katerin Azul APRN [facility] Endocrinology Diabetes Management Pager [phone] minutes of this 25 minute visit [...] of infiltration/extravasation Discussed plan of care with ARCHITECTURAL ENGINEER and RN. Elevate exrtemity and apply intermittent Warm compresses. Name of MD contacted Dr. Shaw Brown 07/13/2017 @ 0619 Name of RN contacted Ale Rangel RN Name of Pharmacist if consulted NA Name of Plastics MD ( if consulted) NA (Mandatory photo for infiltrations/ extravasations scoring a stage 2 or greater, but recommended forstage 1)( include measuring tape and identifier in the photo) SILO FILLER CARING FOR THIS PATIENT WILL CONTINUE TO [...] measuring tape and identifier in the photo) SILO FILLER CARING FOR THIS PATIENT WILL CONTINUE TO [...] regard to both infiltrates addressed by this sign writer hand.All of MrMadiha Hoang's responses were entirely appropriate. Images of infiltrates attached here. L Martha Teague, PLUGGER MAN - 07/13/2017 8:01 AM EST Cardiac Surgery Progress Note: ID: [id number] 72 year old male POD#6 s/p CABGx3 [...] discharge. ?? I have met with the patient/termite control service representative to discuss discharge planning needs. I have provided the [facility], Office of Care Management letter from the Vascular Surgery Physician pertaining to rehab referrals. I have also provided a letter describing our affiliations within the [facility] and educated them about their right to choose where referrals are placed. ?? I reviewed the different levels of rehab including SNF, swing, acute and LTAC with the patient/termite control service representative. ?? The patient/termite control service representative has been provided a list of facilities within their preferred geographic area. ?? I have requested that the patient/termite control service representative provide at least three choices for referral. ?? The patient/termite control service representative have requested referrals to: ?? [facility]. [facility] ?? 2. [facility] ?? 3. More to be entered ?? Expected date of discharge: 07/14 Note routed to Editorial Assistant who will communicate referrals to facilities [...] hours. If BG remains greater than 240, oxzzbc46 units (no more than three times) & [...] Will continue to follow Katerin Azul APRN [facility] Endocrinology Diabetes Management Pager [phone] 20 minutes of this 35 minute visit was spent with the patient in counseling on diabetes and treatment plan, reviewing all glucose and insulin data as well as relevant laboratory results with the patient, and coordination of care on the inpatient unit including nursing and primary team. Makayla Stevenson APRN - 07/12/2017 9:52 AM EST Cardiac Surgery Progress Note: ID: [id number] 72 year old male POD#5 s/p CABGx3 [...] PM EST Patient arrived from [facility]. VSS. MSI dressing pulled off with fresh [...] hours. If BG remains greater than 240, kirmxg79 units (no more than three times) & [...] AM EST Cardiac Surgery Progress Note: ID: [id number] 72 year old male POD#4 s/p CABGx3 [...] hours. If BG remains greater than 240, weczsg45 units (no more than three times) & [...] AM EST Cardiac Surgery Progress Note: ID: [id number] 72 year old male POD#3 s/p CABGx3 [...] Gas) No results found for: PHART, PO2ART, CGV5LNM Assessment/Plan: 72 year old male POD#3 s/p [...] Mami Thao - 07/09/2017 6:29 PM EST Anesthesiology Fellow Encounter Note Patient Name: Gregory Hoang : [id number] MR#: [id number] Admit Date: 07/05/2017 4:20 PM Hospital Day 4 days Narrative: Patient was sitting in chair, hugging heart pillow, opened his eyes, nodding to come into room Assessment: Patient was sleepy. Intervention and Outcome: Introduced barrel finisher services and patient reached his hand out in appreciation. Follow-up: Anesthesiology Fellow remains available for support. Time in Direct [...] 10:45 AM EST Report given to staff counselor to cover care Maddison Cee PA - 07/09/2017 9:00 AM EST Cardiac Surgery Progress Note: ID: [id number] 72 year old male POD#2 s/p CABGx3 [...] completed shifts: In: 7977.4 [I.V.:7477.4; Other:500] Out: 4775 [Urine:3000; Other:615] I- 4 L O- 2.7 [...] Attending Surgeon on rounds. Signed: STEPHANIE Iqbal [facility] Section of Cardiac Surgery [...] when IABP d/c'ed. Gretchen Carolina, PT Pager [phone] Maddison Cee PA - 07/08/2017 11:27 AM EST Cardiac Surgery Progress Note: ID: [id number] 72 year old male POD#1 s/p CABGx3 [...] Attending Surgeon on rounds. Signed: STEPHANIE Iqbal [facility] Section of Cardiac Surgery [...] in place in R femoral. No hematoma. EDUCATION INSTRUCTOR- Intact Psych- Anxious Skin- Dry, no peripheral [...] intact. IABP in place in R femoral. EDUCATION INSTRUCTOR- Intact Psych- Anxious Skin- Dry, no peripheral [...] note for details. DAPHNE SHAHID MD Pager [phone] Jet Mckenna MD - 07/05/2017 6:48 PM EST Preliminary Cardiac Catheterization Procedure Note: Procedure(s) performed: Left heart cath, IABP insertion Access: Right FISHER SPEAR-->8fr IABP A time-out was conducted prior to [...] report to follow. Jet Mckenna MD Yanet Suttno RN - 07/05/2017 6:21 PM EST Pt arrived to unit @ 1630, labs drawn, EKG obtained. Pt denies CP, endorses FOURNIER. No SOB at rest at time of admission. Arrived from EMS on 6L NC, titrated to 2L NC with sats 98-100. BP elevated on admission, 5mg IV metop given with effect. Heparin gtt maintained. Pt transferred to cathode washer. documented in this encounter H&P Notes Daphne Shahid MD - 07/05/2017 6:08 PM EST CARDIOLOGY HISTORY & PHYSICAL EXAM Date of Admission: 07/05/2017 ( Hospital Day 0 days ) Responsible Attending: Daphne Shahid MD PCP: Lovely Vicente MD PCP#: [phone] Patient Active Problem List Diagnosis Code ??? [...] heparin drip and transferred to [facility]. While there, continued sob, question of chest pain. Stat TTE showing WMA diffusely and EF around 20%. No significant valvular disease. Taken to the cathode washer urgently for ongoing STEMI. [facility] Labs: INR 1.0 WBC 5.88 [...] I/O - s/p lasix in the cathode washer, redose to aim net neg 1L by [...] Medicine, PGY-2 Cardiology S1, Team Pager # [phone] CARDIOLOGY ATTENDING NOTE Patient: Gregory Hoang Date [...] amenable for PCI. DAPHNE SHAHID MD Pager [phone] documented in this encounter Miscellaneous Notes Consult Note - Daphne Shahid MD - 07/14/2017 11:46 AM EST Heart Failure Service Inpatient Consult Note Gregory Hoang Date of : 1945 Age: 72 y.o. Today's date: 07/14/17 PCP: Lovely Vicente MD PEN AND PENCIL REPAIRER: None Place of Service: C451-A Reason for [...] 33.75) performed by Yuan Webber MD at [facility] OR ??? PRO CABG, ARTERY-VEIN, TWO N/A 07/07/2017 @CABG, TWO VENOUS GRAFTS & ARTERIAL GRAFT (WRVU 7.93) performed by Yuan Webber MD at [facility] OR ??? PRO COLONOSCOPY, REMV LESN, SNARE 01/16/2014 COLONOSCOPY, POLYPECTOMY, REMOVAL LESION BY SNARE performed by Nohemi Jaimes MD at [facility] ENDOSCOPY ??? PRO ENDOSCOPY W/VIDEO-ASST VEIN HARVEST, CABG Right 07/07/2017 ENDOSCOPIC HARVEST VEIN(S) FOR CABG (WRVU 0.31) performed by Yuan Webber MD at [facility] OR ??? PRO THYROIDECTOMY 03/28/2013 THYROIDECTOMY, TOTAL OR COMPLETE performed by Manny Mcknight MD at [facility] MAIN OR Outpt Meds: Current Outpatient [...] following studies: EKG 07/14/17: NSR 75 bpm, DECK SUPERVISOR anterior infarct, LAD CXR 07/11/17: FINDINGS: Sternotomy wires. The patient has been extubated, left chest tube removed, and [place]-Suzi catheter removed since the 07/07/2017 study. Atelectasis [...] was discussed with Zehra. Jaden Kelley MD Oracle Database Manager Pager [phone] CARDIOLOGY ATTENDING NOTE Patient: Gregory Hoang Date [...] heart failure clinic. DAPHNE SHAHID MD Pager [phone] Plan of Care - Alden Chavarria, GETTERING OPERATOR - 07/14/2017 11:35 AM EST Problem: [...] Disposition: home with assist Alden Jorge Genikevin, GETTERING OPERATOR Pager: [phone] Inpatient Physical Therapy Problem: Acute Rehab Services [...] sit/sit to supine -- Bed Mobility Goal, [place] Level supervision required -- Bed Mobility Goal, [...] - 3 days -- Gait Training Goal, [place] Level supervision required -- Gait Training Goal, [...] days -- Transfer Training Goal, Activity Type nrc-li-rypno/yvzxc-kw-pjf;ure-vg-yygbd/mbfjk-io-yav;toilet -- Transfer Train Goal, [place] Level supervision required -- Transfer Training Goal, [...] keeping present for 2 days per family. Land Clearer noted of frustrations, house keeping sent to room. Patient offered showered twice, refused. at bedside, frustrated that shower not complete, informed that patient had refused several times. requesting to see CROCHET BEADER, paged sent to Martha, will come to bedside (middle of consult). not willing to wait, Martha notified that family had gone home. Encouraged to come for morning rounds a t 8am. Diabetes team at bedside - insulin adjustments made. Call cabello in reach. Continue to monitor. PLAN MOVING FORWARD: Ambulate, dressing changes BID, Please change drsg at 4am per Martha CROCHET BEADER request. INDIVIDUALIZED FALL PREVENTION INTERVENTIONS: Patient-specific fall [...] levels on the lower side, 60ml of [place] juice given after a FS of 80. [...] Anticipated Discharge Disposition: home with assist Pager: [phone] CLARISSA SEGAL, PT 07/12/2017 Physical Therapy Rehabilitation [...] to sit/sit to supine Bed Mobility Goal, [place] Level supervision required Bed Mobility Goal, Additional Goal adheres to psternal precautions for transfer Goal: Gait Training Goal Stand Alone Therapy Goal Outcome: Ongoing (Interventions Implemented as Appropriate) 07/12/17 1225 Gait Training Goal Gait Training Goal, Date Established 07/12/17 Gait Training Goal, Time to Achieve 2 - 3 days Gait Training Goal, [place] Level supervision required Gait Training Goal, Assist [...] 3 days Transfer Training Goal, Activity Type ybl-hz-qjfqu/ryhwr-xw-vwb;cgm-bq-rgaej/lgulo-fh-qkt;toilet Transfer Train Goal, [place] Level supervision required Transfer Training Goal, Additional Goal adheres to sternal precautions during transfer Consult Note - Octavia Vaughn RN - 07/12/2017 10:50 AM EST [facility] CARDIAC REHABILITATION Gregory Hoang was seen today regarding participation in the outpatient Phase 2 Cardiac Rehabilitation at [facility]. The patient agrees to a [...] IV site, amio to other piv and AUTOMATIC TYPEWRITER INSPECTOR at bedside to help assess, IV [...] staff, he stood and marched in place. Robinson weak, wanting to sit back down. Remained [...] Health/Prescription Coverage: Primary Insurance: MEDICARE Secondary Insurance: [place] Prescription Coverage: yes Preferred Pharmacy: [facility] [place] Other: none Primary Care Provider: Lovely Vicente MD [phone] Patient/Caregiver Goals of Treatment:live and get my breath back Potential Needs for Transition of Care: Rehab/SNF: [facility] Home Health: NA DME: TBD Dialysis: na Community Resources: available Transportation: yes Other: none Anticipated Barriers to Discharge/Special Considerations: none Plan: Likely SNF Rehab before home A member of the Care Management team will continue to monitor progress, follow for continuity of care and assist with transition of care planning. ERLIN Weiss Pager: [phone] Consult Note - Katerin Azul RN - [...] management and to provide a review of intermission coordinator diabetes care. Diabetes History: Gregory Hoang has [...] patient W/E coverage, Dr. Jeane Tatum, pager [phone] Katerin Azul APRN Endocrinology Diabetes Management Pager [phone] Plan of Care - Walt Stephanie Wyatt [...] Webber MD - 07/07/2017 6:27 PM EST [facility] Operative Note Patient Name: Gregory Hoang : [id number] MR#: [id number] Case Date: 07/07/2017 Surgeon: Surgeon(s) and Role: * Yuan Webber MD - Primary * Michael Drake PA - Physician Compress Machine Operator * Linda Flores PA - Physician Compress Machine Operator Preoperative diagnosis: 3VD Postoperative diagnosis: [...] Operative Note Patient Name: Gregory Hoang : [id number] MR#: [id number] Case Date: 07/07/2017 Surgeon: Surgeon(s) and Role: * Yuan Webber MD - Primary * Michael Drake PA - Physician Compress Machine Operator * Linda Flores PA - Physician Compress Machine Operator Preoperative diagnosis: 3VD Postoperative diagnosis: [...] Full Code Katty Hahn, MS3 [facility] at [facility] Cardiology S1 (Pager [phone]) Plan of Care - Emelia Ibarra RN [...] COMPLETE performed by Manny Mcknigth MD at [facility] MAIN OR Social History: Social History [...] with other involved physicians Yuan Webber MD [phone] Med Student Progress Note - Katty Hahn [...] BiPAP - s/p lasix in the cathode washer, was net -1.5L - s/p plavix load, [...] - Dispo: CVCC Katty Hahn, M3 [facility] Cardiology S1 (Pager [phone]) Plan of Care - Stephanie Godoy RN - 07/06/2017 5:00 AM EST Problem: Patient Care Overview Goal: Plan of Care Review 07/06/17 7016 Coping/Psychosocial Plan Of Care Reviewed With patient;family [...] urinal without difficulty. Lasix given in cathode washer, 1.4 L out at this time. Pt [...] Nobles MD [facility] DR CARLYLE [place]OND[place]AN [place], [place] [address] (Wo rk) 05/28/2022 Appointment Cardiology Zulma Dolan MD [facility] [address] [place], [place] [address] (Wo rk) 05/28/2022 Laboratory Appointment Lab 05/28/2022 Office Visit Cardiology Zulma Dolan MD [facility] [place] [address] Liz Poole PA [facility] [place] [address] 06/10/2022 Office Visit Dermatology Laura Scherer MD [facility] DR TEJA GR-DERMAT [place], [place] [address] (Wo rk) Scheduled Orders Name [...] procedure are i n the results section. GEOLOGICAL E LOGGER SCAN 07/15/2017 12:00 Res ults for this [...] Routine 07/08/2017 4:00 Results f or this ([facility] AM EST procedure are i n the [...] Yes 07/07/2017 1:35 CAD VEIN(S) [facility] 0.31) @CABG, TWO VENOUS GRAFTS Yes 07/07/2017 1:35 CAD & ARTERIAL GRAFT ([facility] PM EST 7.93) @CABG, USING ARTERIAL Yes 07/07/2017 1:35 CAD GRAFT;SINGLE ARTERIAL PM EST [facility]RAFT [facility] 33.75) PREPARE COAG FACTORS STAT 07/07/2017 1:25 [...] Routine 07/06/2017 7:40 Results f or this ([facility]) PM EST procedure are i n the [...] Timed 07/06/2017 2:10 Results f or this ([facility]) PM EST procedure are i n the [...] section. TYPE AND SCREEN Routine 07/06/2017 12:00 ([facility]/SHANDA) PM EST APTT STAT 07/06/2017 11:24 Results [...] Routine 07/06/2017 8:10 Results f or this ([facility]) AM EST procedure are i n the [...] Timed 07/05/2017 4:55 Results f or this ([facility]) PM EST procedure [...] [place] at 08/19/2017 10:30 AM Martha Teague PLUGGER MAN IMG DX ORDERABLES SCAN DOC: GEOLOGICAL E LOGGER (07/15/2017 12:00 AM EST) Narrative 07/15/2017 12:00 [...] Signature POC Glucose 186 65 - 199 [facility] mg/dL [facility] Comment: Supplemental [...] City/State/[place] [address] POCT Glucose (07/14/2017 7:52 AM EST) athologist Signature POC Glucose 126 65 - 199 [facility] mg/dL [facility] Comment: Supplemental [...] [facility]/[place] [address] (ABNORMAL) Prothrombin Time (07/14/2017 [...] Address City/State/ZIP Code Phon e Number [address] Potassium (07/14/2017 4:46 AM EST) athologist Signature Potassium 4.3 3.5 - 5.0 [facility] mmol/L [facility] Comment: Please [...] Wilson APRN CHEMISTRY ORDERABLES Performing Organization Address City/[facility] Code Phon e Number [address] POCT Glucose (07/14/2017 4:34 AM EST) athologist Signature POC Glucose 115 65 - 199 [facility] mg/dL [facility] Comment: Supplemental [...] [facility]/[place] [address] POCT Glucose (07/13/2017 11:33 PM EST) athologist Signature POC Glucose 132 65 - 199 [place] mg/dL [facility] Comment: Supplemental [...] [facility]/[place] [address] POCT Glucose (07/13/2017 9:25 PM EST) athologist Signature POC Glucose 121 65 - 199 [facility] mg/dL [facility] Comment: Supplemental [...] Address City/State/ZIP Code Phon e Number [address] POCT Glucose (07/13/2017 4:55 PM EST) athologist Signature POC Glucose 79 65 - 199 [place] mg/dL [facility] Comment: Supplemental [...] Address City/State/ZIP Code Phon e Number [address] POCT Glucose (07/13/2017 11:16 AM EST) athologist Signature POC Glucose 163 65 - 199 [place] mg/dL [facility] Comment: Supplemental [...] City/State/[place] [address] POCT Glucose (07/13/2017 8:07 AM EST) athologist Signature POC Glucose 96 65 - 199 [facility] mg/dL [facility] Comment: Supplemental [...] City/State/[place] [address] (ABNORMAL) Prothrombin Time (07/13/2017 [...] City/State/[place] [address] (ABNORMAL) Basic Metabolic Panel (non-fasting) (07/13/2017 4:26 AM EST) athologist Signature Glucose Lvl 95 65 - 199 [facility] mg/dL [facility] Comment: Diabetes: [...] [facility] Estimated GFR 60 >=60 [facility] Comment: The reported eGFR should be multiplied b y 1.2 for patients. The MDRD is not an appropriate measure o f renal function for patients with body mass extremes or in patients with acute kidney failure. http://[employer]/DHnkdep http://[employer]/DHMCnkf Specimen Anatomical Collection Method Collection Time Receive d Time (Source) Location / / Volume Laterality Blood specimen 07/13/2017 4:26 AM 017 4:46 (specimen) EST AM EST Resulting Agency Comment Spec In Lab Makayla Wilson APRN CHEMISTRY ORDERABLES Performing Organization Address City/State/[place] [address] POCT Glucose (07/13/2017 3:52 AM EST) P athologist Signature POC Glucose 93 65 - 199 [facility] mg/dL [facility] Comment: Supplemental [...] Address City/State/ZIP Code Phon e Number [address] POCT Glucose (07/13/2017 12:21 AM EST) athologist Signature POC Glucose 80 65 - 199 [place] mg/dL [facility] Comment: Supplemental [...] [facility]/ZIP Code Phon e Number [address] POCT Glucose (07/12/2017 8:22 PM EST) athologist Signature POC Glucose 119 65 - 199 [place] mg/dL [facility] Comment: Supplemental [...] City/State/Z[place] [address] POCT Glucose (07/12/2017 4:02 PM EST) athologist Signature POC Glucose 114 65 - 199 [place] mg/dL [facility] Comment: Supplemental [...] Address City/State/ZIP Code Phon e Number [address] POCT Glucose (07/12/2017 11:28 AM EST) athologist Signature POC Glucose 164 65 - 199 [facility] mg/dL [facility] Comment: Supplemental [...] Address City/State/ZIP Code Phon e Number [address] POCT Glucose (07/12/2017 7:34 AM EST) athologist Signature POC Glucose 109 65 - 199 [facility] mg/dL [facility] Comment: Supplemental [...] City/State/[place] [address] (ABNORMAL) Basic Metabolic Panel (non-fasting) (07/12/2017 4:11 AM EST) athologist Signature Glucose Lvl 92 65 - 199 [facility] mg/dL [facility] Comment: Diabetes: [...] or in patients with acute kidney failure. http://[employer]/DHnkdep http://[employer]/DHMCnkf Specimen Anatomical Collection Method Collection Time Receive d Time (Source) Location / / Volume Laterality Blood specimen 07/12/2017 4:11 AM 017 8:57 (specimen) EST AM EST Resulting Agency Comment Spec In Lab Makayla Wilson STACIE CHEMISTRY ORDERABLES Performing Organization Address City/State/[place] [address] (ABNORMAL) Prothrombin Time (07/12/2017 [...] Wilson APRN HEMATOLOGY ORDERABLES Performing Organization Address City/[facility]/[place] [address] Potassium (07/12/2017 4:11 AM EST) P athologist Signature Potassium 3.8 3.5 - 5.0 [facility] mmol/L [facility] Comment: Please [...] Wilson STACIE CHEMISTRY ORDERABLES Performing Organization Address City/[facility]/[place] [address] POCT Glucose (07/12/2017 4:10 AM EST) athologist Signature POC Glucose 90 65 - 199 [facility] mg/dL [facility] Comment: Supplemental [...] [facility]/[place] [address] POCT Glucose (07/11/2017 11:57 PM EST) athologist Signature POC Glucose 98 65 - 199 [facility] mg/dL [facility] Comment: Supplemental [...] City/State/Z[place] [address] POCT Glucose (07/11/2017 8:32 PM EST) athologist Signature POC Glucose 146 65 - 199 [facility] mg/dL [facility] Comment: Supplemental [...] City/State/[place] [address] XR Chest PA & [...] e xtubated, left chest tube removed, and [place]-Suzi catheter removed since the study. Atelectasis at [...] e xtubated, left chest tube removed, and [place]-Suzi catheter removed since the study. Atelectasis at [...] POC Glucose 223 (H) 65 - 199 [facility] mg/dL [facility] Comment: Supplemental ranges: <140 mg/dL before meals <180 mg/dL all other times of the day Specimen Anatomical Collection Method Collection Time Receive d Time (Source) Location / / Volume Laterality Blood specimen 07/11/2017 4:05 PM 017 4:05 (specimen) EST PM EST Yuan Webber MD POINT OF CARE TEST ORDERABLE S Performing Organization Address City/State/[place] [address] POCT Glucose (07/11/2017 11:55 AM EST) athologist Signature POC Glucose 176 65 - 199 [facility] mg/dL [facility] Comment: Supplemental [...] Address City/State/ZIP Code Phon e Number [address] POCT Glucose (07/11/2017 7:53 AM EST) athologist Signature POC Glucose 189 65 - 199 [facility] mg/dL [facility] Comment: Supplemental [...] [facility]/[place] [address] POCT Glucose (07/11/2017 4:22 AM EST) athologist Signature POC Glucose 151 65 - 199 [place] mg/dL [facility] Comment: Supplemental [...] [facility]/[place] [address] Potassium (07/11/2017 2:20 AM EST) athologist Signature Potassium 4.5 3.5 - 5.0 [facility] mmol/L [facility] Comment: Please [...] Address City/State/ZIP Code Phon e Number [address] POCT Glucose (07/11/2017 12:17 AM EST) athologist Signature POC Glucose 162 65 - 199 [place] [facility] mg/dL [facility] Comment: Supplemental [...] Address City/State/ZIP Code Phon e Number [address] POCT Glucose (07/10/2017 8:47 PM EST) athologist Signature POC Glucose 191 65 - 199 [place] mg/dL [facility] Comment: Supplemental [...] Address City/State/ZIP Code Phon e Number [address] POCT Glucose (07/10/2017 4:06 PM EST) athologist Signature POC Glucose 131 65 - 199 [facility] mg/dL [facility] Comment: Supplemental [...] [facility]/[place] [address] POCT Glucose (07/10/2017 3:08 PM EST) athologist Signature POC Glucose 151 65 - 199 [place] mg/dL [facility] Comment: Supplemental [...] [facility]/[place] [address] POCT Glucose (07/10/2017 2:25 PM EST) athologist Signature POC Glucose 146 65 - 199 [place] mg/dL [facility] Comment: Supplemental [...] City/State/Z[place] [address] POCT Glucose (07/10/2017 1:23 PM EST) athologist Signature POC Glucose 166 65 - 199 [facility] mg/dL [facility] Comment: Supplemental [...] Address City/State/ZIP Code Phon e Number [address] POCT Glucose (07/10/2017 11:52 AM EST) P athologist Signature POC Glucose 157 65 - 199 [facility] mg/dL [facility] Comment: Supplemental [...] [facility]/ZIP Code Phon e Number [address] POCT Glucose (07/10/2017 11:01 AM EST) athologist Signature POC Glucose 158 65 - 199 [place] mg/dL [facility] Comment: Supplemental [...] City/State/Z[place] [address] POCT Glucose (07/10/2017 9:54 AM EST) athologist Signature POC Glucose 160 65 - 199 [place] mg/dL [facility] Comment: Supplemental [...] Address City/State/ZIP Code Phon e Number [address] POCT Glucose (07/10/2017 8:58 AM EST) P athologist Signature POC Glucose 183 65 - 199 [facility] mg/dL [facility] Comment: Supplemental [...] Address City/State/ZIP Code Phon e Number [address] POCT Glucose (07/10/2017 8:01 AM EST) athologist Signature POC Glucose 173 65 - 199 [facility] mg/dL [facility] Comment: Supplemental [...] Address City/State/ZIP Code Phon e Number [address] POCT Glucose (07/10/2017 7:05 AM EST) athologist Signature POC Glucose 166 65 - 199 [place] mg/dL [facility] Comment: Supplemental [...] Address City/State/ZIP Code Phon e Number [address] POCT Glucose (07/10/2017 6:00 AM EST) P athologist Signature POC Glucose 162 65 - 199 [facility] mg/dL [facility] Comment: Supplemental [...] Address City/State/ZIP Code Phon e Number [address] (ABNORMAL) Differential, Automated (07/10/2017 4:28 AM EST) Patholo gist Method Time Signature Neutrophils % 87.9 % [facility] Neutr Abs (ANC) 10.70 (H) 1.70 - [facility] 6.10 [facility] x10(3)/[facility] L LABORATORY Lymphocytes % 3.9 % [facility] Lymphocytes Abs 0.5 (L) 0.9 - 3.2 [facility] x10(3)/[facility] LABORATORY Monocytes % 7.0 % [facility] Monocyte Abs 0.8 0.3 - 0.9 [facility] x10(3)/[facility] LABORATORY Eosinophils % 0.3 % [facility] Eosinophils Abs 0.0 0.0 - 0.4 [facility] x10(3)/[facility] LABORATORY Basophils % 0.2 % [facility] Basophils Abs 0.0 0.0 - 0.1 [facility] x10(3)/[facility] LAB[facility]ATORY Immature Gran % 0.70 % WHITE [...] Organization Address City/State/[place] [address] (ABNORMAL) Hemogram (07/10/2017 4:28 AM EST) Analysis Performed At Patho logist Time Signature WBC 12.2 (H) 4.0 - 9.5 [facility] x10(3)/[facility] LABORATORY RBC 3.31 (L) 4.58 - [facility] 5.54 [facility] x10(6)/[facility] LABORATORY Hemoglobin 9.8 (L) 13.7 - [facility] 16.5 gm/dL [facility] Hematocrit 30.0 (L) 40.5 - [facility] 48.5 % [facility] MCV 90.6 82.9 - [facility] 93.1 [facility] LABORATORY MCH 29.6 27.5 - [facility] 32.1 pg [facility] MCHC 32.7 32.0 - [facility] 35.7 gm/dL [facility] Platelets 135 (L) 145 - 357 [facility] x10(3)/[facility] LABORATORY RDWSD 50.8 (H) 36.0 - [facility] 45.0 [facility] LABORATORY RDWCV 15.4 (H) 11.4 - [facility] 13.8 % [facility] MPV 10.0 7.6 - 12.9 [facility] LABORATORY nRBC % Auto 0.0 % [facility] LAB[facility]ORY nRBC Abs Auto 0.000 0.000 - [facility] 0.000 [facility] x10(3)/[facility] LABORATORY Specimen Anatomical Collection Method Collection Time Receive d Time (Source) Location / / Volume Laterality Blood specimen 07/10/2017 4:28 AM 017 4:36 (specimen) EST AM EST Resulting Agency Comment Spec In Lab Yuan Webber MD HEMATOLOGY ORDERABLES Performing Organization Address City/State/[place] [address] (ABNORMAL) Basic Metabolic Panel (non-fasting) (07/10/2017 4:28 AM EST) athologist Signature Glucose Lvl 178 65 - 199 [facility] mg/dL [facility] Comment: [...] [facility] Estimated GFR 60 >=60 [facility] Comment: The reported eGFR should be multiplied b y 1.2 for patients. The MDRD is not an appropriate measure o f renal function for patients with body mass extremes or in patients with acute kidney failure. http://[employer]nk[employer] http://[employer]/DHMCnkf Specimen Anatomical Collection Method Collection Time Receive d Time (Source) Location / / Volume Laterality Blood specimen 07/10/2017 4:28 AM 017 4:36 (specimen) EST AM EST Resulting Agency Comment Spec In Lab Yuan Webber MD CHEMISTRY ORDERABLES Performing Organization Address City/State/Z[place] [address] POCT Glucose (07/10/2017 4:26 AM EST) athologist Signature POC Glucose 176 65 - 199 [facility] mg/dL [facility] Comment: Supplemental [...] City/State/[place] [address] (ABNORMAL) POCT Glucose (07/10/2017 3:06 AM EST) athologist Signature POC Glucose 204 (H) 65 - 199 [facility] mg/dL [facility] Comment: Supplemental [...] City/State/Z[place] [address] (ABNORMAL) POCT Glucose (07/10/2017 2:10 AM EST) athologist Signature POC Glucose 203 (H) 65 - 199 [place] [facility] mg/dL [facility] Comment: Supplemental [...] Address City/State/ZIP Code Phon e Number [address] POCT Glucose (07/10/2017 1:09 AM EST) P athologist Signature POC Glucose 196 65 - 199 [place] mg/dL [facility] Comment: Supplemental [...] City/State/Z[place] [address] POCT Glucose (07/10/2017 12:10 AM EST) athologist Signature POC Glucose 173 65 - 199 [place] mg/dL [facility] Comment: Supplemental [...] Address City/State/ZIP Code Phon e Number [address] POCT Glucose (07/09/2017 11:01 PM EST) P athologist Signature POC Glucose 140 65 - 199 [facility] mg/dL [facility] Comment: Supplemental [...] Address City/State/ZIP Code Phon e Number [address] POCT Glucose (07/09/2017 10:05 PM EST) athologist Signature POC Glucose 144 65 - 199 [place] [facility] mg/dL [facility] Comment: Supplemental [...] [facility]/ZIP Code Phon e Number [address] POCT Glucose (07/09/2017 9:31 PM EST) athologist Signature POC Glucose 121 65 - 199 [place] mg/dL [facility] Comment: Supplemental [...] City/State/Z[place] [address] POCT Glucose (07/09/2017 9:03 PM EST) athologist Signature POC Glucose 98 65 - 199 [place] mg/dL [facility] Comment: Supplemental [...] Address City/State/ZIP Code Phon e Number [address] POCT Glucose (07/09/2017 8:09 PM EST) athologist Signature POC Glucose 117 65 - 199 [facility] mg/dL [facility] Comment: Supplemental [...] [facility]ZIP Code Phon e Number [address] POCT Glucose (07/09/2017 5:40 PM EST) athologist Signature POC Glucose 155 65 - 199 [facility] mg/dL [facility] Comment: Supplemental [...] [facility]/ZIP Code Phon e Number [address] POCT Glucose (07/09/2017 4:24 PM EST) athologist Signature POC Glucose 164 65 - 199 [place] [facility] mg/dL [facility] Comment: Supplemental [...] City/State/Z[place] [address] POCT Glucose (07/09/2017 3:19 PM EST) athologist Signature POC Glucose 166 65 - 199 [facility] mg/dL [facility] Comment: Supplemental [...] [facility]/Z[place] [address] POCT Glucose (07/09/2017 2:26 PM EST) athologist Signature POC Glucose 179 65 - 199 [facility] mg/dL [facility] Comment: Supplemental [...] [facility]/ZIP Code Ph[place] [address] (ABNORMAL) POCT Glucose (07/09/2017 1:29 PM EST) athologist Signature POC Glucose 210 (H) 65 - 199 BARBARA ZHAORYAN mg/dL [facility] Comment: Supplemental [...] Address City/State/ZIP Code Phon e Number [address] POCT Glucose (07/09/2017 12:20 PM EST) P athologist Signature POC Glucose 172 65 - 199 [facility] Comment: Supplemental [...] Address City/State/ZIP Code Phon e Number [address] POCT Glucose (07/09/2017 11:24 AM EST) P athologist Signature POC Glucose 156 65 - 199 [facility] Comment: Supplemental [...] City/State/ZIP Code Phon e Number [place] [id number] POCT Glucose (07/09/2017 11:11 AM EST) P athologist Signature POC Glucose 172 65 - 199 [facility]dL [facility] Comment: Supplemental ranges: <140 mg/dL before meals <180 mg/dL all other times of the day Specimen Anatomical Collection Method Collection Time Receive d Time (Source) Location / / Volume Laterality Blood specimen 07/09/2017 11:11 7 (specimen) AM EST 11:11 AM EST Yuan Webber MD POINT OF CARE TEST ORDERABLE S Performing Organization Address City/State/[place] [address] POCT Glucose (07/09/2017 10:08 AM EST) P athologist Signature POC Glucose 176 65 - 199 BARBARA RYAN mg/dL [facility] Comment: Supplemental [...] Address City/State/ZIP Code Phon e Number [address] POCT Glucose (07/09/2017 8:02 AM EST) athologist Signature POC Glucose 178 65 - 199 [facility] Comment: Supplemental [...] Address City/State/ZIP Code Phon e Number [address] (ABNORMAL) BLOOD GAS 2 ARTERIAL (07/09/2017 5:37 AM EST) Analysis Performed At Patho logist Time Signature pH Art 7.36 7.35 - [facility] 7.45 [facility] pCO2 Art 38 35 - 45 [facility] mmHg [facility] pO2 Art 79 (L) 85 - 104 [facility] mmHg [facility] HCO3 Art 20.9 20.0 - [facility] 26.0 [facility] mmol/L [facility] BE Art -4.6 (L) -3.0 - 3.0 [facility] mmol/L [facility] Hgb Blood Gas 10.5 (L) 13.7 - [facility] 16.5 gm/dL [facility] O2HB Art 93.8 (L) 94.0 - [facility] 97.0 % [facility] COHB Art 0.3 % WHITE [...] Whole Bld 175 65 - 199 mg/dL [facility] Comment: Diabetes: >=200 mg/dL plus symp toms. Lactate WB 1.0 0.5 - 2.2 mmol/L [facility] FIO2 Art 40 % [facility] PF Ratio Art 198 [facility] Specimen Anatomical Collection Method Collection Time Receive d Time (Source) Location / / Volume Laterality Blood specimen 07/09/2017 5:37 AM 017 5:37 (specimen) EST AM EST Yuan Webber MD CHEMISTRY ORDERABLES Performing Organization Address City/State/[place] [address] POCT Glucose (07/09/2017 3:27 AM EST) P athologist Signature POC Glucose 192 65 - 199 [facility] mg/dL [facility] Comment: Supplemental ranges: <140 mg/dL before meals <180 mg/dL all other times of the day Specimen Anatomical Collection Method Collection Time Receive d Time (Source) Location / / Volume Laterality Blood specimen 07/09/2017 3:27 AM 017 3:27 (specimen) EST AM EST Yuan Webber MD POINT OF CARE TEST ORDERABLE S Performing Organization Address City/State/[place] [address] (ABNORMAL) Basic Metabolic Panel (non-fasting) (07/09/2017 2:30 AM EST) athologist Signature Glucose Lvl 179 65 - 199 [facility] mg/dL [facility] Comment: [...] or in patients with acute kidney failure. [email or web address]/DHnkdep [email or web address]/DHMCnkf Specimen Anatomical Collection Method Collection Time Receive d Time (Source) Location / / Volume Laterality Blood specimen Venous Draw / 07/09/2017 2:30 AM 2016 2:42 (specimen) Unknown EST AM EST Resulting Agency Comment Spec In Lab Yuan Webber MD CHEMISTRY ORDERABLES Performing Organization Address City/[facility]/[place]IP [place] [address] (ABNORMAL) Potassium (07/09/2017 2:30 AM EST) P athologist Signature Potassium 5.1 (H) 3.5 - 5.0 BARBARA RYAN mmol/L [facility] Comment: Please [...] Webber MD CHEMISTRY ORDERABLES Performing Organization Address City/[facility]/[place] [address] (ABNORMAL) Hemogram (07/09/2017 2:30 AM EST) Analysis Performed At Patho logist Time Signature WBC 12.5 (H) 4.0 - 9.5 BARBARA RYAN x10(3)/[facility] LABORATORY RBC 3.38 (L) 4.58 - BARBARA RYAN 5.54 [facility] x10(6)/[facility] LABORATORY Hemoglobin 10.1 (L) 13.7 - BARBARA RYAN 16.5 gm/dL [facility] Hematocrit 30.3 (L) 40.5 - ABRBARA RYAN 48.5 % [facility] MCV 89.6 82.9 - BARBARA RYAN 93.1 fL [facility] MCH 29.9 27.5 - BARBARA RYAN 32.1 pg [facility] MCHC 33.3 32.0 - [place] RYAN 35.7 gm/dL [facility] Platelets 127 (L) 145 - 357 BARBARA RYAN x10(3)/[facility] LABORATORY RDWSD 49.3 (H) 36.0 - [facility] RYAN 45.0 [facility] LABORATORY RDWCV 15.2 (H) 11.4 - [facility] 13.8 % [facility] MPV 9.9 7.6 - 12.9 [facility] LABORATORY nRBC % Auto 0.0 % [facility] LABORATORY nRBC Abs Auto 0.000 0.000 - BARBARA RYAN 0.000 [facility] x10(3)/[facility] LABORATORY Specimen Anatomical Collection Method Collection Time Receive d Time (Source) Location / / Volume Laterality Blood specimen 07/09/2017 2:30 AM 017 2:41 (specimen) EST AM EST Resulting Agency Comment Spec In Lab Yuan Webber MD HEMATOLOGY ORDERABLES Performing Organization Address City/[facility]/ZIP Code Phon e Number [address] POCT Glucose (07/09/2017 2:10 AM EST) P athologist Signature POC Glucose 169 65 - 199 [facility] mg/dL [facility] Comment: Supplemental [...] [facility]/ZIP Code Phon e Number [address] POCT Glucose (07/09/2017 1:01 AM EST) P athologist Signature POC Glucose 173 65 - 199 [facility] Comment: Supplemental [...] [facility]/[place] [address] Blood culture (07/09/2017 12:40 AM EST) [facility] gist Method Time Signature Blood Culture No growth BARBARA DAVIS at 5 days. [facility] Specimen Anatomical Collection Method Collection Time Receive d Time (Source) Location / / Volume Laterality Blood specimen STRUCTURE OF RIGHT 07/09/2017 12:40 3:58 (specimen) UPPER LIMB / AM EST AM EST Unknown Resulting Agency Comment Spec In Lab Yuan Webber MD MICROBIOLOGY - BLOOD ORDERAB LES Performing Organization Address City/[facility]/[place] [address] Blood culture (07/09/2017 12:30 AM EST) [facility] gist Method Time Signature Blood Culture No growth BARBARA DAVIS at 5 days. [facility] Specimen Anatomical Collection Method Collection Time Receive d Time (Source) Location / / Volume Laterality Blood specimen STRUCTURE OF LEFT 07/09/2017 12:30 1211/2016 3:59 (specimen) UPPER LIMB / AM EST AM EST Unknown Resulting Agency Comment Spec In Lab Yuan Webber MD MICROBIOLOGY - BLOOD ORDERAB LES Performing Organization Address City/[facility]/[place] [address] (ABNORMAL) Urinalysis Microscopic Exam [...] Cast 17 (H) 0 - 2 /LPF [facility] Gran Cast UA 1 (H) <=0 /LPF [facility] Uric Ac Bianca Rare (A) None /HPF [facility] Specimen (Source) Anatomical Collection Method Collection Time Re ceived Time Location / / Volume Laterality Urine specimen 07/09/2017 12: 7 obtained via AM EST 12:39 AM EST indwelling urinary catheter (specimen) Resulting Agency Comment Spec In Lab Yuan Webber MD URINE ORDERABLES Performing Organization Address City/[facility]/[place] [address] (ABNORMAL) Urinalysis with reflex Culture (07/09/2017 12:05 AM EST) [facility] Method Time Signature Glucose UA Negative Negative [facility] mg/dL [facility] Protein UA 30 (A) Negative [facility] mg/dL [facility] Bilirubin UA Negative Negative [facility] mg/dL [facility] Comment: Clinical correlation required for [...] [facility] LAB[facility]ORY Nitrite UA Negative Negative [facility]ORY Leukocytes UA Negative Negative [facility] LABORATORY Appearance UA Hazy (A) Clear [facility] Spec [place] UA 1.025 1.002 - 1.030 [facility] Color UA Yellow Yellow [facility] Culture Reflexed No [facility] Specimen (Source) Anatomical Collection Method Collection Time Re ceived Time Location / / Volume Laterality Urine specimen 07/09/2017 12:05 7 obtained via AM EST 12:39 AM EST indwelling urinary catheter (specimen) Resulting Agency Comment Spec In Lab Yuan Webber MD URINE ORDERABLES Performing Organization Address City/[facility]/[place] [address] POCT Glucose (07/08/2017 11:01 PM EST) athologist Signature POC Glucose 191 65 - 199 [facility] mg/dL [facility] Comment: Supplemental [...] Address City/State/ZIP Code Phon e Number [address] POCT Glucose (07/08/2017 10:04 PM EST) athologist Signature POC Glucose 198 65 - 199 [facility] mg/dL [facility] Comment: Supplemental [...] City/State/[place] [address] Prepare Albumin 5% in 250 mL (07/08/2017 8:49 PM EST) athologist Signature Dispensed? Yes [facility] Specimen Anatomical Collection Method Collection Time Receive d Time (Source) Location / / Volume Laterality Blood specimen No Charge / 07/08/2017 8:49 PM 017 8:51 (specimen) Unknown EST PM EST Resulting Agency Comment Spec In Lab [facility] ORDERABLES Performing Organization Address City/State/ZIP Code Phon e Number [address] POCT Glucose (07/08/2017 8:28 PM EST) athologist Signature POC Glucose 195 65 - 199 BARBARA ZHAORYAN mg/dL [facility] Comment: Supplemental [...] City/State/[place] [address] (ABNORMAL) POCT Glucose (07/08/2017 7:13 PM EST) athologist Signature POC Glucose 220 (H) 65 - 199 [facility] Comment: Supplemental [...] City/State/[place] [address] POCT Glucose (07/08/2017 5:04 PM EST) athologist Signature POC Glucose 147 65 - 199 [facility]dL [facility] Comment: Supplemental [...] City/State/[place] [address] (ABNORMAL) BLOOD GAS 2 ARTERIAL (07/08/2017 4:13 PM EST) Analysis Performed At Patho logist Time Signature pH Art 7.38 7.35 - [facility] 7.45 [facility] pCO2 Art 36 35 - 45 [facility] LABORATORY pO2 Art 91 85 - 104 [facility] LABORATORY HCO3 Art 20.9 20.0 - [facility] 26.0 [facility] mmol/[facility] LABORATORY BE Art -4.2 (L) -3.0 - 3.0 [facility] mmol/L [facility] Hgb Blood Gas 11.7 (L) 13.7 - [facility] 16.5 gm/dL [facility] O2HB Art 95.1 94.0 - [facility] 97.0 % [facility] COHB Art 0.6 % WHITE [...] Whole Bld 155 65 - 199 mg/dL [facility] Comment: Diabetes: >=200 mg/dL plus symp toms. Lactate WB 1.4 0.5 - 2.2 mmol/L [facility] FIO2 Art 40 % [facility] PF Ratio Art 228 [facility] Specimen Anatomical Collection Method Collection Time Receive d Time (Source) Location / / Volume Laterality Blood specimen 07/08/2017 4:13 PM 017 4:13 (specimen) EST PM EST Yuan Webber MD CHEMISTRY ORDERABLES Performing Organization Address City/State/ZIP Code Phon e Number [address] POCT Glucose (07/08/2017 4:01 PM EST) athologist Signature POC Glucose 148 65 - 199 BARBARA ZHAORYAN mg/dL [facility] Comment: Supplemental [...] [facility]/[place] [address] POCT Glucose (07/08/2017 3:21 PM EST) athologist Signature POC Glucose 118 65 - 199 BARBARA RYAN mg/dL [facility] Comment: Supplemental [...] City/State/Z[place] [address] POCT Glucose (07/08/2017 2:01 PM EST) athologist Signature POC Glucose 129 65 - 199 BARBARA ZHAORYAN mg/dL [facility] Comment: Supplemental [...] Address City/State/ZIP Code Phon e Number [address] POCT Glucose (07/08/2017 11:53 AM EST) athologist Signature POC Glucose 156 65 - 199 BARBARA RYAN mg/dL [facility] Comment: Supplemental [...] [facility]/ZIP Code Phon e Number [address] POCT Glucose (07/08/2017 11:04 AM EST) athologist Signature POC Glucose 181 65 - 199 BARBARA ZHAORYAN mg/dL [facility] Comment: Supplemental [...] [facility]/[place] [address] (ABNORMAL) POCT Glucose (07/08/2017 9:24 AM EST) athologist Signature POC Glucose 203 (H) 65 - 199 BARBARA RYAN mg/dL [facility] Comment: Supplemental ranges: <140 mg/dL before meals <180 mg/dL all other times of the day Specimen Anatomical Collection Method Collection Time Receive d Time (Source) Location / / Volume Laterality Blood specimen 07/08/2017 9:24 AM 017 9:24 (specimen) EST AM EST Yuan Webber MD POINT OF CARE TEST ORDERABLE S Performing Organization Address City/State/[facility] [place] [address] APTT (07/08/2017 8:40 AM EST) athologist Signature PTT 33 25 - 35 sec [facility] Comment: The recommended therapeutic range for fu ll dose, unfractionated heparin at [facility] is 80 ? 114 seconds. The use [...] Webber MD HEMATOLOGY ORDERABLES Performing Organization Address [facility] [place] [address] (ABNORMAL) Prothrombin Time (07/08/2017 [...] Webber MD HEMATOLOGY ORDERABLES Performing Organization Address [facility] [place] [address] (ABNORMAL) POCT Glucose (07/08/2017 7:38 AM EST) athologist Signature POC Glucose 232 (H) 65 - 199 [facility] mg/dL [facility] Comment: Supplemental [...] City/State/[place] [address] (ABNORMAL) POCT Glucose (07/08/2017 7:07 AM EST) athologist Signature POC Glucose 234 (H) 65 - 199 [facility] mg/dL [facility] Comment: Supplemental [...] City/State/[place] [address] (ABNORMAL) POCT Glucose (07/08/2017 6:04 AM EST) athologist Signature POC Glucose 225 (H) 65 - 199 [facility] mg/dL [facility] Comment: Supplemental [...] City/State/[place] [address] (ABNORMAL) POCT Glucose (07/08/2017 5:31 AM EST) athologist Signature POC Glucose 216 (H) 65 - 199 [facility] mg/dL [facility] Comment: Supplemental [...] City/State/[place] [address] (ABNORMAL) POCT Glucose (07/08/2017 4:52 AM EST) athologist Signature POC Glucose 257 (H) 65 - 199 [facility] mg/dL [facility] Comment: Supplemental [...] [facility]/[place] [address] (ABNORMAL) BLOOD GAS 2 ARTERIAL (07/08/2017 4:04 AM EST) Analysis Performed At Patho logist Time Signature pH Art 7.30 (L) 7.35 - [facility] 7.45 [facility] pCO2 Art 41 35 - 45 [facility] mmHg [facility] pO2 Art 83 (L) 85 - 104 [facility] mmHg [facility] HCO3 Art 19.6 (L) 20.0 - [facility] 26.0 [facility] mmol/L [facility] BE Art -6.8 (L) -3.0 - 3.0 [facility] mmol/L [facility] Hgb Blood Gas 12.2 (L) 13.7 - [facility] 16.5 gm/dL [facility] O2HB Art 93.5 (L) 94.0 - [facility] 97.0 % [facility] COHB Art 0.4 % WHITE [...] Bld 274 (H) 65 - 199 mg/dL [facility] Comment: Diabetes: >=200 mg/dL plus symp toms. Lactate WB 4.4 (Critical) 0.5 - 2.2 mmol/L [facility] Comment: Noted by assembler musical instruments. FIO2 Art 40 % [facility] PF Ratio Art 208 [facility] Specimen Anatomical Collection Method Collection Time Receive d Time (Source) Location / / Volume Laterality Blood specimen 07/08/2017 4:04 AM 017 4:04 (specimen) EST AM EST Daphne Shahid MD CHEMISTRY ORDERABLES Performing Organization Address City/State/[place] [address] Scan, Peripheral Blood (07/08/2017 [...] Organization Address City/State/[place] [address] (ABNORMAL) Differential, Automated (07/08/2017 4:00 AM EST) [facility] Method Time Signature Neutrophils % 85.4 % [facility] Neutr Abs (ANC) 16.07 (H) 1.70 - [facility] 6.10 [facility] x10(3)/[facility] LABORATORY Lymphocytes % 3.5 % [facility] Lymphocytes Abs 0.6 (L) 0.9 - 3.2 [facility] x10(3)/[facility] LABORATORY Monocytes % 10.4 % [facility] Monocyte Abs 2.0 (H) 0.3 - 0.9 [facility] x10(3)/[facility] LABORATORY Eosinophils % 0.0 % [facility] Eosinophils Abs 0.0 0.0 - 0.4 [facility] x10(3)/[facility] LABORATORY Basophils % 0.1 % [facility] Basophils Abs 0.0 0.0 - 0.1 [facility] x10(3)/[facility] LABORATORY Immature Gran % 0.60 % WHITE [...] Organization Address City/State/[place] [address] (ABNORMAL) Hemogram (07/08/2017 4:00 AM EST) Analysis Performed At Patho logist Time Signature WBC 18.8 (H) 4.0 - 9.5 [facility] x10(3)/[facility] LABORATORY RBC 4.00 (L) 4.58 - BARBARA RYAN 5.54 [facility] x10(6)/[facility] LABORATORY Hemoglobin 11.9 (L) 13.7 - [facility] 16.5 gm/dL [facility] Hematocrit 35.9 (L) 40.5 - [facility] 48.5 % [facility] MCV 89.8 82.9 - [facility] 93.1 [facility] LABORATORY MCH 29.8 27.5 - [facility] 32.1 pg [facility] MCHC 33.1 32.0 - [place]BAR[place] RYAN 35.7 gm/dL [facility] Platelets 232 145 - 357 [facility] x10(3)/[facility] LABORATORY RDWSD 47.6 (H) 36.0 - [place] RYAN 45.0 [facility] LABORATORY RDWCV 14.5 (H) 11.4 - [facility] RYAN 13.8 % [facility] MPV 9.5 7.6 - 12.9 [facility] LABORATORY nRBC % Auto 0.0 % [facility]ORY nRBC Abs Auto 0.000 0.000 - [place]BAR[place] RYAN 0.000 [facility] x10(3)/[facility] LABORATORY Specimen Anatomical Collection Method Collection Time Receive d Time (Source) Location / / Volume Laterality Blood specimen 07/08/2017 4:00 AM 017 4:09 (specimen) EST AM EST Resulting Agency Comment Spec In Lab Yuan Webber MD HEMATOLOGY ORDERABLES Performing Organization Address City/State/[place] [address] (ABNORMAL) Electrolytes panel (07/08/2017 4:00 AM EST) P athologist Signature Sodium 139 135 - 145 [facility] mmol/L [facility] Potassium 4.7 3.5 - 5.0 [facility] mmol/L [facility] Comment: result [id number] Please note: [...] Organization Address City/State/[place] [address] (ABNORMAL) Cardiac Enzymes (LEB/CGP) (07/08/2017 4:00 AM EST) athologist [facility] Troponin-T 1.88 (H) 0.00 - [facility] 0.00 ng/mL [facility] Comment: [...] additional sample may be indicated. Reference: [place] Definition of Myocardial Infarction. Journal of the [...] Organization Address City/State/[place] [address] (ABNORMAL) Glucose, fasting (07/08/2017 4:00 AM EST) P athologist Signature Glucose 287 (H) 65 - 99 [facility] Fasting mg/dL [facility] Comment: [...] Webber MD CHEMISTRY ORDERABLES Performing Organization Address City/[facility]/[place] [address] (ABNORMAL) Creatinine (07/08/2017 4:00 AM EST) Analysis Performed At Patho logist Time Signature Creatinine 1.55 (H) 0.80 - [facility] 1.50 mg/dL [facility] Estimated GFR 44 (L) >=60 [facility] [facility] Comment: The reported eGFR should be multiplied b y 1.2 for patients. The MDRD is not an appropriate measure o f renal function for patients with body mass extremes or in patients with acute kidney failure. http://StyleTrek/DHnkdep http://StyleTrek/DHMCnkf Specimen Anatomical Collection Method Collection Time Receive d Time (Source) Location / / Volume Laterality Blood specimen 07/08/2017 4:00 AM 017 4:09 (specimen) EST AM EST Resulting Agency Comment Spec In Lab Yuan Webber MD CHEMISTRY ORDERABLES Performing Organization Address City/[facility]/[place] [address] BUN (07/08/2017 4:00 AM EST) P athologist Signature BUN 16 10 - 20 [facility] Specimen Anatomical Collection Method Collection Time Receive d Time (Source) Location / / Volume Laterality Blood specimen 07/08/2017 4:00 AM 017 4:09 (specimen) EST AM EST Resulting Agency Comment Spec In Lab Yuan Webber MD CHEMISTRY ORDERABLES Performing Organization Address City/[facility]/[place] [address] (ABNORMAL) POCT Glucose (07/08/2017 3:00 AM EST) P athologist Signature POC Glucose 273 (H) 65 - 199 [facility]dL [facility] Comment: Supplemental [...] [facility]/[place] [address] (ABNORMAL) POCT Glucose (07/08/2017 1:57 AM EST) athologist Signature POC Glucose 288 (H) 65 - 199 [facility]/dL [facility] Comment: Supplemental [...] [facility]/[place] [address] (ABNORMAL) POCT Glucose (07/08/2017 1:01 AM EST) athologist Signature POC Glucose 315 (H) 65 - 199 [facility] mg/dL [facility] Comment: Supplemental [...] City/State/[place] [address] (ABNORMAL) BLOOD GAS 2 ARTERIAL (07/08/2017 12:09 AM EST) athologist Signature pH Art 7.26 7.35 - [facility] (Critical) 7.45 [facility] Comment: Noted by assembler musical instruments. pCO2 Art 41 35 - 45 mmHg [facility] pO2 Art 96 85 - [...] [facility] COHB Art 0.2 % [facility] [...] Bld 315 (H) 65 - 199 mg/dL [facility] Comment: Diabetes: >=200 mg/dL plus symp toms. Lactate WB 7.6 (Critical) 0.5 - 2.2 mmol/L [facility] Comment: Noted by assembler musical instruments. FIO2 Art 40 % [facility] PF Ratio Art 240 [facility] Specimen Anatomical Collection Method Collection Time Receive d Time (Source) Location / / Volume Laterality Blood specimen Arterial Draw / 07/08/2017 12:09 2016 5:31 (specimen) Unknown AM EST AM EST Resulting Agency Comment Spec In Lab Samy Maldonado MD CHEMISTRY ORDERABLES Performing Organization Address City/State/[place] [address] (ABNORMAL) POCT Glucose (07/07/2017 10:56 PM EST) athologist Signature POC Glucose 292 (H) 65 - 199 [facility] mg/dL [facility] Comment: Supplemental [...] [facility]/[place] [address] (ABNORMAL) BLOOD GAS 2 ARTERIAL (07/07/2017 10:04 PM EST) athologist Signature pH Art 7.22 7.35 - [facility] (Critical) 7.45 [facility] Comment: Noted by assembler musical instruments. pCO2 Art 42 35 - 45 mmHg [facility] pO2 Art 94 85 - [...] [facility] COHB Art 0.7 % [facility] [...] Bld 304 (H) 65 - 199 mg/dL [facility] Comment: Diabetes: >=200 mg/dL plus symp toms. Lactate WB 8.2 (Critical) 0.5 - 2.2 mmol/L [facility] Comment: Noted by assembler musical instruments. FIO2 Art 40 % [facility] PF Ratio Art 235 [facility] Specimen Anatomical Collection Method Collection Time Receive d Time (Source) Location / / Volume Laterality Blood specimen 07/07/2017 10:04 7 (specimen) PM EST 10:04 PM EST Daphne Shahid MD CHEMISTRY ORDERABLES Performing Organization Address City/[facility]/ZIP Code Phon e Number [address] (ABNORMAL) Hemoglobin (07/07/2017 10:00 PM EST) athologist Signature Hemoglobin 12.8 (L) 13.7 - [facility] 16.5 gm/dL [facility] Specimen Anatomical Collection Method Collection Time Receive d Time (Source) Location / / Volume Laterality Blood specimen 07/07/2017 10:00 7 (specimen) PM EST 10:13 PM EST Resulting Agency Comment Spec In Lab Yuan Webber MD HEMATOLOGY ORDERABLES Performing Organization Address City/State/ZIP Code Phon e Number [address] (ABNORMAL) Potassium (07/07/2017 10:00 PM EST) P athologist Signature Potassium 3.4 (L) 3.5 - 5.0 [facility] mmol/L [facility] Comment: Please [...] Webber MD CHEMISTRY ORDERABLES Performing Organization Address City/[facility]/ZIP Code Phon e Number [address] (ABNORMAL) POCT Glucose (07/07/2017 8:49 PM EST) athologist [facility] POC Glucose 241 (H) 65 - 199 [facility] mg/dL [facility] Comment: Supplemental [...] [facility]/[place] [address] Prepare Albumin 5% in 250 mL (07/07/2017 8:03 PM EST) athologist [facility] Dispensed? Yes [facility] Specimen Anatomical Collection Method Collection Time Receive d Time (Source) Location / / Volume Laterality Blood specimen No Charge / 07/07/2017 8:03 PM 017 8:04 (specimen) Unknown EST PM EST Resulting Agency Comment Spec In Lab Michael BROWN BLOOD BANK ORDERABLES Performing Organization Address City/[facility]/[place] [address] EKG 12 Lead (07/07/2017 7:17 PM EST) Component Value Ref Range Test Analysis Performed Pathologis t Method Time At Signature Ventricular rate 75 BPM MUSE SYSTEM Atrial Rate 75 BPM MUSE SYSTEM P-R Interval 168 ms MUSE SYSTEM QRS Duration 104 ms MUSE SYSTEM Q-T Interval 462 ms MUSE SYSTEM QTC Calculated 515 ms MUSE SYSTEM (Bezet) Calculated P Galva 52 degrees MUSE SYSTEM Calculated R Galva -40 degrees MUSE SYSTEM Calculated T Galva 39 degrees MUSE SYSTEM INTERPRETATION Normal sinus [...] athologist Signature pH Art 7.21 7.35 - [facility] (Critical) 7.45 [facility] Comment: Noted by assembler musical instruments. pCO2 Art 50 (H) 35 - 45 mmHg [facility] pO2 Art 238 (H) 85 [...] [facility] COHB Art 0.5 % [facility] Comment: Nonsmokers: 0.5-1.5% COHB Smokers: Variable, but usually less than 10% Toxic: 20-30% COHB Lethal: Greater than 60% COHB METHB Art 0.7 <=1.5 % [facility] Na Whole Blood 140 135 - 145 mmol/L [facility] K Whole Blood 3.0 (Critical) 3.5 - 5.0 mmol/L [facility] Comment: Noted by assembler musical instruments. Please note: Patients with WBC >100,000 [...] Bld 270 (H) 65 - 199 mg/dL [facility] Comment: Diabetes: >=200 mg/dL plus symp toms. Lactate WB 4.9 (Critical) 0.5 - 2.2 mmol/L [facility] Comment: Noted by assembler musical instruments. FIO2 Art 100 % [facility] PF Ratio Art 238 [facility] Specimen Anatomical Collection Method Collection Time Receive d Time (Source) Location / / Volume Laterality Blood specimen 07/07/2017 6:57 PM 017 6:57 (specimen) EST PM EST Daphne Shahid MD CHEMISTRY ORDERABLES Performing Organization Address City/State/[place] [address] (ABNORMAL) BLOOD GAS 2 ARTERIAL (07/07/2017 5:31 PM EST) P athologist Signature pH Art 7.29 7.35 - [facility] (Critical) 7.45 [facility] Comment: Noted by assembler musical instruments. pCO2 Art 48 (H) 35 - 45 mmHg [facility] pO2 Art 137 (H) 85 [...] [facility] COHB Art 0.3 % [facility] [...] Bld 293 (H) 65 - 199 mg/dL [facility] [...] Organization Address City/State/[place] [address] Fibrinogen (07/07/2017 5:30 PM EST) P athologist Signature Fibrinogen 224 180 - 510 [facility] mg/dL [facility] Comment: Called by: JEET, Read [...] HEMATOLOGY ORDERABLES Performing Organization Address [facility] Phon e Number [address] APTT (07/07/2017 5:30 PM EST) P athologist Signature PTT 30 25 - 35 sec [facility] Comment: The recommended therapeutic range for fu ll dose, unfractionated heparin at [facility] is 80 ? 114 seconds. The use [...] HEMATOLOGY ORDERABLES Performing Organization Address [facility] [place] [address] (ABNORMAL) Prothrombin Time (07/07/2017 [...] Resulting Agency Comment Spec In Lab Yifan ePrez MD HEMATOLOGY ORDERABLES Performing Organization Address City/State/[place] [address] (ABNORMAL) Hemogram (07/07/2017 5:30 PM EST) P athologist Signature WBC 19.6 (H) 4.0 - 9.5 [facility] x10(3)/[facility] LABORATORY RBC 3.08 (L) 4.58 - [facility] 5.54 [facility] x10(6)/[facility] LABORATORY Hemoglobin 9.2 (L) 13.7 - [facility] 16.5 gm/dL [facility] Hematocrit 28.0 (L) 40.5 - [facility] 48.5 % [facility] Comment: This result has been called to MONICA MORAN by DONALD GROSSMAN on 07 07 2017 at 1759, and has been read back. MCV 90.9 82.9 - 93.1 [facility] LABORATORY MCH 29.9 27.5 - 32.1 pg [facility] MCHC 32.9 32.0 - 35.7 gm/dL [facility] Platelets 155 145 - 357 x10(3)/[facility] LABORATORY RDWSD 46.5 (H) 36.0 - 45.0 [facility] LABORATORY RDWCV 14.1 (H) 11.4 - 13.8 % [facility] MPV 9.5 7.6 - 12.9 [facility] LABORATORY nRBC % Auto 0.0 % [facility] nRBC Abs Auto 0.000 0.000 - 0.000 x10(3)/[facility] LABORATORY Specimen Anatomical Collection Method Collection Time Receive d Time (Source) Location / / Volume Laterality Blood specimen 07/07/2017 5:30 PM 017 5:34 (specimen) EST PM EST Resulting Agency Comment Spec In Lab Yifan Perez MD HEMATOLOGY ORDERABLES Performing Organization Address City/[facility]/ZIP Code Phon e Number [address] Prepare Platelets, Apheresis (07/07/2017 5:00 PM EST) P athologist Signature Dispensed? Yes [facility] Specimen Anatomical Collection Method Collection Time Receive d Time (Source) Location / / Volume Laterality Blood specimen 07/07/2017 5:00 PM 017 4:58 (specimen) EST PM EST Daphne Shahid MD BLOOD BANK ORDERABLES Performing Organization Address City/[facility]/ZIP Code Phon e Number [address] Platelet count (07/07/2017 4:55 PM EST) athologist Signature Platelets 177 145 - 357 [facility] x10(3)/[facility] LABORATORY Plat Immature 1.5 0.0 - 7.4 [facility] % % [facility] Comment: Limitation of the Immature Platelet Frac tion (IPF)-May be less reliable when the platelet count is less than 06y813/u L due to statistical imprecision. The IPF [...] in a decreased state of production. References: [employer] The Clinical Value of the Immature Platelet Fraction (IPF) in Cell Recovery Document Number [id number] 12/2010 [employer] The Role of the Imm ature [...] City/State/ZIP Code Phon e Number [place] [id number] HOSP[address] LAB[address]ORY Drive (ABNORMAL) Hemoglobin and Hematocrit, blood (07/07/2017 4:55 PM EST) P athologist Signature Hemoglobin 9.1 (L) 13.7 - 16.5 [facility] gm/dL [facility] Comment: This result has been [...] Organization Address City/State/[place] [address] (ABNORMAL) BLOOD GAS 2 ARTERIAL (07/07/2017 4:38 PM EST) Analysis Performed At Patho logist Time Signature pH Art 7.37 7.35 - [facility] 7.45 [facility] pCO2 Art 44 35 - 45 [facility] mmHg [facility] pO2 Art 322 (H) 85 - 104 [facility] mmHg [facility] HCO3 Art 24.9 20.0 - [facility] 26.0 [facility] mmol/L [facility] BE Art -0.4 -3.0 - 3.0 [facility] mmol/L [facility] Hgb Blood Gas 10.1 (L) 13.7 - [facility] 16.5 gm/dL [facility] O2HB Art 98.7 (H) 94.0 - [facility] 97.0 % [facility] COHB Art 0.1 % [facility] Comment: Noted by assembler musical instruments. Note: ??Total bilirubin higher than 20 m g/dL may lead to falsely low ionized calcium. CL Whole Blood 101 98 - 107 mmol/L [facility] Gluc Whole Bld 295 (H) 65 - 199 mg/dL [facility] [...] Organization Address City/State/[place] [address] (ABNORMAL) BLOOD GAS 2 VENOUS (07/07/2017 4:06 PM EST) Analysis Performed At Patho logist Time Signature pH Cody 7.31 (L) 7.32 - [facility] 7.42 [facility] pCO2 Cody 47 41 - 51 [facility] LABORATORY pO2 Cody 53 (H) 25 - 40 [facility] LABORATORY HCO3 Cody 22.7 mmol/L [facility] BE Cody -3.7 mmol/L [facility] Hgb Blood Gas 10.2 (L) 13.7 - [facility] 16.5 gm/dL [facility] O2HB Cody 81.0 % [facility] Comment: Noted by assembler musical instruments. Note: ??Total bilirubin higher than 20 m g/dL may lead to falsely low ionized calcium. CL Whole Blood 100 98 - 107 mmol/L [facility] Gluc Whole Bld 231 (H) 65 - 199 mg/dL [facility] Comment: Diabetes: >=200 mg/dL plus symp toms Lactate WB 1.1 0.5 - 2.2 mmol/L [facility] BGas Source Venous [facility] Specimen Anatomical Collection Method Collection Time Receive d Time (Source) Location / / Volume Laterality Blood specimen 07/07/2017 4:06 PM 017 4:06 (specimen) EST PM EST Daphne Shahid MD CHEMISTRY ORDERABLES Performing Organization Address City/State/[place] [address] (ABNORMAL) BLOOD GAS 2 ARTERIAL (07/07/2017 4:05 PM EST) Analysis Performed At Patho logist Time Signature pH Art 7.36 7.35 - [facility] 7.45 [facility] pCO2 Art 40 35 - 45 [facility] LABORATORY pO2 Art 282 (H) 85 - 104 [facility] LABORATORY HCO3 Art 22.1 20.0 - [facility] 26.0 [facility] mmol/L [facility] BE Art -3.4 (L) -3.0 - 3.0 [facility] mmol/L [facility] Hgb Blood Gas 10.2 (L) 13.7 - [facility] 16.5 gm/dL [facility] O2HB Art 98.4 (H) 94.0 - [facility] 97.0 % [facility] COHB Art 0.3 % [facility] Comment: Noted by assembler musical instruments. Note: ??Total bilirubin higher than 20 m g/dL may lead to falsely low ionized calcium. CL Whole Blood 101 98 - 107 mmol/L [facility] Gluc Whole Bld 260 (H) 65 - 199 mg/dL [facility] [...] Organization Address City/State/[place] [address] (ABNORMAL) BLOOD GAS 2 ARTERIAL (07/07/2017 2:29 PM EST) Analysis Performed At Patho logist Time Signature pH Art 7.43 7.35 - [facility] 7.45 [facility] pCO2 Art 36 35 - 45 [facility] mmHg [facility] pO2 Art 221 (H) 85 - 104 [facility] LABORATORY HCO3 Art 23.2 20.0 - [facility] 26.0 [facility] mmol/L [facility] BE Art -1.2 -3.0 - 3.0 [facility] mmol/L [facility] Hgb Blood Gas 13.9 13.7 - [facility] 16.5 gm/dL [facility] O2HB Art 97.8 (H) 94.0 - [facility] 97.0 % [facility] COHB Art 1.1 % WHITE [...] Whole Bld 184 65 - 199 mg/dL [facility] Comment: Diabetes: >=200 mg/dL plus symp toms. Lactate WB 1.5 0.5 - 2.2 mmol/L [facility] Specimen Anatomical Collection Method Collection Time Receive d Time (Source) Location / / Volume Laterality Blood specimen 07/07/2017 2:29 PM 017 2:29 (specimen) EST PM EST Daphne Shahid MD CHEMISTRY ORDERABLES Performing Organization Address City/[facility]/ZIP Code Phon e Number [address] Prepare Coag Factors (Non-Hemophilia) (07/07/2017 1:25 PM EST) P athologist Signature Dispensed? Yes [facility] Specimen Anatomical Collection Method Collection Time Receive d Time (Source) Location / / Volume Laterality Blood specimen 07/07/2017 1:25 PM 017 1:21 (specimen) EST PM EST Daphne Shahid MD BLOOD BANK ORDERABLES Performing Organization Address [facility]/ZIP Code Phon e Number [address] Prepare RBC (07/07/2017 1:10 PM EST) P athologist Signature Dispensed? Yes [facility] Specimen Anatomical Collection Method Collection Time Receive d Time (Source) Location / / Volume Laterality Blood specimen 07/07/2017 1:10 PM 017 1:05 (specimen) EST PM EST Daphne Shahid MD BLOOD BANK ORDERABLES Performing Organization Address City/[facility]/ZIP [place] [address] POCT Glucose (07/07/2017 11:56 AM EST) P athologist Signature POC Glucose 188 65 - 199 [facility] mg/dL [facility] Comment: Supplemental [...] [facility]/ZIP Code Phon e Number [address] POCT Glucose (07/07/2017 11:05 AM EST) athologist Signature POC Glucose 168 65 - 199 [facility] mg/dL [facility] Comment: Supplemental [...] Address City/State/ZIP Code Phon e Number [address] POCT Glucose (07/07/2017 10:02 AM EST) athologist Signature POC Glucose 191 65 - 199 [facility] Comment: Supplemental [...] Address City/State/ZIP Code Phon e Number [address] POCT Glucose (07/07/2017 7:53 AM EST) athologist Signature POC Glucose 178 65 - 199 [facility] mg/dL [facility] Comment: Supplemental [...] City/State/Z[place] [address] POCT Glucose (07/07/2017 7:03 AM EST) athologist Signature POC Glucose 188 65 - 199 [facility] mg/dL [facility] Comment: Supplemental [...] Address City/State/ZIP Code Phon e Number [address] (ABNORMAL) POCT Glucose (07/07/2017 6:17 AM EST) athologist Signature POC Glucose 207 (H) 65 - 199 [facility] mg/dL [facility] Comment: Supplemental [...] [facility]/ZIP Code Phon e Number [address] Differential, Automated (07/07/2017 5:15 AM EST) athologist [facility] Neutrophils % 69.7 % [facility]ORATORY Neutr Abs (ANC) 5.32 1.70 - [facility] 6.10 [facility] x10(3)/[facility] LABORATORY Lymphocytes % 16.3 % [facility]ORY Lymphocytes Abs 1.2 0.9 - 3.2 [facility] x10(3)/[facility] LABORATORY Monocytes % 10.5 % [facility]ORY Monocyte Abs 0.8 0.3 - 0.9 [facility] x10(3)/[facility] LABORATORY Eosinophils % 2.5 % [facility] Eosinophils Abs 0.2 0.0 - 0.4 [facility] x10(3)/[facility] LABORATORY Basophils % 0.7 % [facility]ORY Basophils Abs 0.0 0.0 - 0.1 [facility] x10(3)/[facility] LABORATORY Immature Gran % 0.30 % [...] 0.04 x10(3)/[facility] MAR Y [facility] LABORATORY Specimen Anatomical Collection Method Collection Time Receive d Time (Source) Location / / Volume Laterality Blood specimen 07/07/2017 5:15 AM 017 5:34 (specimen) EST AM EST Resulting Agency Comment Spec In Lab Daphne Shahid MD HEMATOLOGY ORDERABLES Performing Organization Address City/State/[place] [address] (ABNORMAL) Hemogram (07/07/2017 5:15 AM EST) Analysis Performed At Patho logist Time Signature WBC 7.6 4.0 - 9.5 [facility] x10(3)/[facility] LABORATORY RBC 4.82 4.58 - [facility] 5.54 [facility] x10(6)/[facility] LABORATORY Hemoglobin 14.4 13.7 - [facility] 16.5 gm/dL [facility] Hematocrit 42.1 40.5 - [facility] 48.5 % [facility] MCV 87.3 82.9 - [facility] 93.1 [facility] LABORATORY MCH 29.9 27.5 - [facility] 32.1 pg [facility] MCHC 34.2 32.0 - [facility] 35.7 gm/dL [facility] Platelets 188 145 - 357 [facility] x10(3)/[facility] [facility] LABORATORY RDWSD 45.1 (H) 36.0 - [facility] RYAN 45.0 [facility] LABORATORY RDWCV 14.3 (H) 11.4 - [facility] 13.8 % [facility] LABORATORY MPV 9.4 7.6 - 12.9 [facility] LABORATORY nRBC % Auto 0.0 % [facility] LABORATORY nRBC Abs Auto 0.000 0.000 - [place] DAVIS 0.000 [facility] x10(3)/[facility] LABORATORY Specimen Anatomical Collection Method Collection Time Receive d Time (Source) Location / / Volume Laterality Blood specimen 07/07/2017 5:15 AM 017 5:34 (specimen) EST AM EST Resulting Agency Comment Spec In Lab Daphne Shahid MD HEMATOLOGY ORDERABLES Performing Organization Address City/State/ZIP Code Phon e Number [address] (ABNORMAL) APTT (07/07/2017 5:15 AM EST) P athologist Signature PTT 69 (H) 25 - 35 sec [facility] LABORATORY Comment: The recommended therapeutic range for fu ll dose, unfractionated heparin at [facility] is 80 ? 114 seconds. The use [...] Address City/State/ZIP Code Phon e Number [address] Magnesium (07/07/2017 5:15 AM EST) P athologist Signature Magnesium 0.94 0.69 - 1.07 [facility] mmol/L [facility] LABORATORY Specimen Anatomical Collection Method Collection Time Receive d Time (Source) Location / / Volume Laterality Blood specimen 07/07/2017 5:15 AM 017 5:34 (specimen) EST AM EST Resulting Agency Comment Spec In Lab Daphne Shahid MD CHEMISTRY ORDERABLES Performing Organization Address City/[facility]/[place] [address] (ABNORMAL) Basic Metabolic Panel (non-fasting) (07/07/2017 5:15 AM EST) P athologist Signature Glucose Lvl 203 (H) 65 - 199 [facility] mg/dL [facility] LABORATORY Comment: [...] [facility] LABORATORY Estimated GFR >60 >=60 [facility] LABORATORY Comment: The reported eGFR should be multiplied b y 1.2 for patients. The MDRD is not an appropriate measure o f renal function for patients with body mass extremes or in patients with acute kidney failure. http://[employer]/DHnkdep http://[employer]/DHMCnkf Specimen Anatomical Collection Method Collection Time Receive d Time (Source) Location / / Volume Laterality Blood specimen 07/07/2017 5:15 AM 017 5:34 (specimen) EST AM EST Resulting Agency Comment Spec In Lab Daphne Shahid MD CHEMISTRY ORDERABLES Performing Organization Address City/[facility]/[place] [address] (ABNORMAL) Cardiac Enzymes (LEB/CGP) (07/07/2017 5:15 AM EST) athologist Signature Troponin-T 2.07 (H) 0.00 - [place]BARA OLIVASCK 0.00 ng/mL [facility] LABORATORY Comment: [...] additional sample may be indicated. Reference: [place] Definition of Myocardial Infarction. Journal of the [...] Address City/State/ZIP Code Phon e Number [address] POCT Glucose (07/07/2017 5:01 AM EST) athologist Signature POC Glucose 182 65 - 199 [facility] mg/dL [facility] LABORATORY Comment: Supplemental [...] City/State/[place] [address] POCT Glucose (07/07/2017 4:08 AM EST) athologist Signature POC Glucose 199 65 - 199 [place] RYAN mg/dL [facility] LABORATORY Comment: Supplemental [...] Address City/State/ZIP Code Phon e Number [address] POCT Glucose (07/07/2017 3:03 AM EST) athologist Signature POC Glucose 188 65 - 199 [facility] mg/dL [facility] LABORATORY Comment: Supplemental [...] City/State/[place] [address] (ABNORMAL) POCT Glucose (07/07/2017 2:08 AM EST) P athologist Signature POC Glucose 200 (H) 65 - 199 [place] RYAN mg/dL [facility] LABORATORY Comment: Supplemental [...] City/State/[place] [address] (ABNORMAL) POCT Glucose (07/07/2017 1:31 AM EST) P athologist Signature POC Glucose 209 (H) 65 - 199 [facility] mg/dL [facility] LABORATORY Comment: Supplemental [...] City/State/Z[place] [address] XR Chest PA or [...] Signature POC Glucose 161 65 - 199 [facility] mg/dL [facility] LABORATORY Comment: Supplemental [...] [facility]/[place] [address] (ABNORMAL) APTT (07/07/2017 12:00 AM EST) athologist Signature PTT 103 (H) 25 - 35 sec [facility] LABORATORY Comment: The recommended therapeutic range for fu ll dose, unfractionated heparin at [facility] is 80 ? 114 seconds. The use [...] Address City/State/ZIP Code Phon e Number [address] POCT Glucose (07/06/2017 9:55 PM EST) athologist Signature POC Glucose 109 65 - 199 [facility] mg/dL [facility] LABORATORY Comment: Supplemental [...] [facility]/[place] [address] POCT Glucose (07/06/2017 9:04 PM EST) athologist Signature POC Glucose 120 65 - 199 [facility] mg/dL [facility] LABORATORY Comment: Supplemental [...] City/State/Z[place] [address] POCT Glucose (07/06/2017 7:45 PM EST) athologist Signature POC Glucose 158 65 - 199 [facility] mg/dL [facility] LABORATORY Comment: Supplemental [...] Address City/State/ZIP Code Phon e Number [address] Potassium (07/06/2017 7:40 PM EST) athologist Signature Potassium 3.9 3.5 - 5.0 [facility] mmol/L [facility] LABORATORY Comment: Please [...] Organization Address City/State/[place] [address] (ABNORMAL) Cardiac Enzymes (LEB/CGP) (07/06/2017 7:40 PM EST) athologist Signature Troponin-T 2.27 (H) 0.00 - [facility] 0.00 ng/mL [facility] LABORATORY Comment: [...] additional sample may be indicated. Reference: [place] Definition of Myocardial Infarction. Journal of the [...] Shahid MD CHEMISTRY ORDERABLES Performing Organization Address City/[facility]/[place] [address] (ABNORMAL) POCT Glucose (07/06/2017 7:13 PM EST) P athologist Signature POC Glucose 200 (H) 65 - 199 [facility] mg/dL [facility] LABORATORY Comment: Supplemental ranges: <140 mg/dL before meals <180 mg/dL all other times of the day Specimen Anatomical Collection Method Collection Time Receive d Time (Source) Location / / Volume Laterality Blood specimen 07/06/2017 7:13 PM 017 7:13 (specimen) EST PM EST Daphne Shahid MD POINT OF CARE TEST ORDERABLE S Performing Organization Address [facility] [place] [address] (ABNORMAL) APTT (07/06/2017 6:15 PM EST) athologist Signature PTT 94 (H) 25 - 35 sec [facility] LABORATORY Comment: The recommended therapeutic range for fu ll dose, unfractionated heparin at [facility] is 80 ? 114 seconds. The use [...] Shahid MD HEMATOLOGY ORDERABLES Performing Organization Address City/[facility]/ZIP [facility] [place] [address] (ABNORMAL) POCT Glucose (07/06/2017 6:03 PM EST) P athologist Signature POC Glucose 236 (H) 65 - 199 [facility] mg/dL [facility] LABORATORY Comment: Supplemental [...] City/State/[place] [address] (ABNORMAL) POCT Glucose (07/06/2017 5:01 PM EST) P athologist Signature POC Glucose 235 (H) 65 - 199 [place] RYAN mg/dL [facility] LABORATORY Comment: Supplemental [...] City/State/[place] [address] (ABNORMAL) POCT Glucose (07/06/2017 4:06 PM EST) P athologist Signature POC Glucose 202 (H) 65 - 199 [place] RYAN mg/dL [facility] LABORATORY Comment: Supplemental [...] City/State/[place] [address] POCT Glucose (07/06/2017 2:59 PM EST) P athologist Signature POC Glucose 178 65 - 199 [place] RYAN mg/dL [facility] LABORATORY Comment: Supplemental ranges: <140 mg/dL before meals <180 mg/dL all other times of the day Specimen Anatomical Collection Method Collection Time Receive d Time (Source) Location / / Volume Laterality Blood specimen 07/06/2017 2:59 PM 017 2:59 (specimen) EST PM EST Daphne Shahid MD POINT OF CARE TEST ORDERABLE S Performing Organization Address City/State/[place] [address] (ABNORMAL) Cardiac Enzymes (LEB/CGP) (07/06/2017 2:10 PM EST) athologist Signature Troponin-T 2.34 (H) 0.00 - [facility] 0.00 ng/mL [facility] LABORATORY Comment: [...] additional sample may be indicated. Reference: [place] Definition of Myocardial Infarction. Journal of the [...] Address City/State/ZIP Code Phon e Number [address] POCT Glucose (07/06/2017 2:08 PM EST) athologist Signature POC Glucose 192 65 - 199 [place] RYAN mg/dL [facility] LABORATORY Comment: Supplemental [...] [facility]/ZIP Code Phon e Number [address] POCT Glucose (07/06/2017 1:04 PM EST) athologist Signature POC Glucose 162 65 - 199 [place] RYAN mg/dL [facility] LABORATORY Comment: Supplemental [...] [facility]/ZIP [place] [address] POCT Glucose (07/06/2017 12:05 PM EST) athologist Signature POC Glucose 196 65 - 199 [place] RYAN mg/dL [facility] LABORATORY Comment: Supplemental ranges: <140 mg/dL before meals <180 mg/dL all other times of the day Specimen Anatomical Collection Method Collection Time Receive d Time (Source) Location / / Volume Laterality Blood specimen 07/06/2017 12:05 7 (specimen) PM EST 12:05 PM EST Daphne Shahid MD POINT OF CARE TEST ORDERABLE S Performing Organization Address City/State/[place] [address] EKG 12 Lead (07/06/2017 12:00 PM EST) Component Value Ref Range Test Analysis Performed Pathologis t Method Time At Signature Ventricular rate 91 BPM MUSE SYSTEM Atrial Rate 91 BPM MUSE SYSTEM P-R Interval 140 ms MUSE SYSTEM QRS Duration 94 ms MUSE SYSTEM Q-T Interval 394 ms MUSE SYSTEM QTC Calculated 484 ms MUSE SYSTEM (Bezet) Calculated P Galva 36 degrees MUSE SYSTEM Calculated R Galva -19 degrees MUSE SYSTEM Calculated T Galva 104 degrees MUSE SYSTEM INTERPRETATION Normal sinus rhythm MUSE SYSTEM 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) ST & T wave abnormality, consider lateral ischemia Abnormal ECG When compared with ECG of 05-JUL-2017 20:39, No significant change was found Confirmed by MD Luci, Taurus Braun ([id number]) on 07/06/2017 5:07:33 PM Specimen Anatomical Collection Method Collection Time Receive d Time (Source) Location / / Volume Laterality 07/06/2017 12:00 07/06/2017 5:07 PM EST PM EST Daphne Shahid MD ECG ORDERABLES Performing Organization Address City/State/ZIP Code Phon e Number MUSE SYSTEM ABORH Recheck Status (07/06/2017 12:00 PM EST) [facility] Method Time Signature ABORH Type Completed [facility] LABORATORY Specimen Anatomical Collection Method Collection Time Receive d Time (Source) Location / / Volume Laterality Blood specimen 07/06/2017 12:00 7 (specimen) PM EST 12:24 PM EST Resulting Agency Comment Spec In Lab Daphne Shahid MD BLOOD BANK ORDERABLES Performing Organization Address City/State/[place] [address] Antibody screen (07/06/2017 12:00 PM EST) [facility] Method Time Signature Ab Screen Negative [facility] LABORATORY Expires at 07/09/2017 BARBARA ZHAORYAN [id number] on: [facility] LABORATORY Specimen Anatomical Collection Method Collection Time Receive d Time (Source) Location / / Volume Laterality Blood specimen 07/06/2017 12:00 7 (specimen) PM EST 12:24 PM EST Resulting Agency Comment Spec In Lab Daphne Shahid MD BLOOD BANK ORDERABLES Performing Organization Address City/[facility]/ZIP Code Phon e Number [address] ABO/Rh Typing (07/06/2017 12:00 [...] MD BLOOD BANK ORDERABLES Performing Organization Address [facility] [place] [address] Prothrombin Time (07/06/2017 11:24 [...] Shahid MD HEMATOLOGY ORDERABLES Performing Organization Address City/[facility]/Z[place] [address] (ABNORMAL) APTT (07/06/2017 11:24 AM EST) P athologist Signature PTT 52 (H) 25 - 35 sec [facility] LABORATORY Comment: The recommended therapeutic range for fu ll dose, unfractionated heparin at [facility] is 80 ? 114 seconds. The use [...] Address City/State/ZIP Code Phon e Number [address] POCT Glucose (07/06/2017 11:02 AM EST) athologist Signature POC Glucose 187 65 - 199 [facility] mg/dL [facility] LABORATORY Comment: Supplemental [...] [facility]/ZIP Code Phon e Number [address] POCT Glucose (07/06/2017 10:18 AM EST) P athologist Signature POC Glucose 193 65 - 199 [facility] mg/dL [facility] LABORATORY Comment: Supplemental [...] [facility]/ZIP Code Phon e Number [address] POCT Glucose (07/06/2017 9:25 AM EST) P athologist Signature POC Glucose 182 65 - 199 [facility] mg/dL [facility] LABORATORY Comment: Supplemental ranges: <140 mg/dL before meals <180 mg/dL all other times of the day Specimen Anatomical Collection Method Collection Time Receive d Time (Source) Location / / Volume Laterality Blood specimen 07/06/2017 9:25 AM 017 9:25 (specimen) EST AM EST Daphne Shahid MD POINT OF CARE TEST ORDERABLE S Performing Organization Address City/State/[place] [address] (ABNORMAL) Cardiac Enzymes (LEB/CGP) (07/06/2017 8:10 AM EST) athologist Signature Troponin-T 2.26 (H) 0.00 - [place] DAVIS 0.00 ng/mL [facility] LABORATORY Comment: [...] additional sample may be indicated. Reference: [place] Definition of Myocardial Infarction. Journal of the [...] Address City/State/ZIP Code Phon e Number [address] Magnesium (07/06/2017 8:10 AM EST) athologist Signature Magnesium 0.84 0.69 - 1.07 [facility] mmol/L [facility] LABORATORY Specimen Anatomical Collection Method Collection Time Receive d Time (Source) Location / / Volume Laterality Blood specimen 07/06/2017 8:10 AM 017 8:21 (specimen) EST AM EST Resulting Agency Comment Spec In Lab Daphne Shahid MD CHEMISTRY ORDERABLES Performing Organization Address City/[facility] Phon e Number [address] (ABNORMAL) Basic Metabolic Panel (non-fasting) (07/06/2017 8:10 AM EST) athologist Signature Glucose Lvl 199 65 - 199 [facility] mg/dL [facility] LABORATORY Comment: [...] [facility] LAB[facility] Estimated GFR >60 >=60 [facility] LABORATORY Comment: The reported eGFR should be multiplied b y 1.2 for patients. The MDRD is not an appropriate measure o f renal function for patients with body mass extremes or in patients with acute kidney failure. http://[employer]/DHnkdep http://[employer]/DHMCnkf Specimen Anatomical Collection Method Collection Time Receive d Time (Source) Location / / Volume Laterality Blood specimen 07/06/2017 8:10 AM 017 8:21 (specimen) EST AM EST Resulting Agency Comment Spec In Lab Daphne Shahid MD CHEMISTRY ORDERABLES Performing Organization Address City/[facility]/ZIP Code Phon e Number [address] POCT Glucose (07/06/2017 7:34 AM EST) P athologist Signature POC Glucose 198 65 - 199 [facility] mg/dL [facility] LABORATORY Comment: Supplemental [...] [facility]/ZIP Code Phon e Number [address] POCT Glucose (07/06/2017 7:03 AM EST) P athologist Signature POC Glucose 181 65 - 199 [facility] mg/dL [facility] LAB[facility] Comment: Supplemental [...] [facility]/ZIP Code Phon e Number [address] XR Chest PA or [...] [facility] mg/dL [facility] LABORATORY Comment: Supplemental [...] Address City/State/ZIP Code Phon e Number [address] POCT Glucose (07/06/2017 5:08 AM EST) athologist Signature POC Glucose 154 65 - 199 [facility] mg/dL [facility] Comment: Supplemental [...] Address City/State/ZIP Code Phon e Number [address] POCT Glucose (07/06/2017 4:05 AM EST) athologist Signature POC Glucose 142 65 - 199 [facility] mg/dL [facility] LAB[facility]ORY Comment: Supplemental [...] Address City/State/ZIP Code Phon e Number [address] POCT Glucose (07/06/2017 3:00 AM EST) P athologist Signature POC Glucose 116 65 - 199 [facility] mg/dL [facility] LABOR[facility]ORY Comment: Supplemental [...] [facility]/[place] [address] Potassium (07/06/2017 2:20 AM EST) athologist Signature Potassium 3.9 3.5 - 5.0 [facility] mmol/L [facility] LABORATORY Comment: Please [...] Shahid MD CHEMISTRY ORDERABLES Performing Organization Address City/[facility]/ZIP Code Phon e Number [address] Differential, Automated (07/06/2017 2:20 AM EST) athologist Signature Neutrophils % 72.9 % [facility] LABORATORY Neutr Abs (ANC) 5.53 1.70 - [facility] 6.10 [facility] x10(3)/[facility] LABORATORY Lymphocytes % 16.4 % [facility] LABORATORY Lymphocytes Abs 1.2 0.9 - 3.2 [facility] x10(3)/[facility] LABORATORY Monocytes % 9.4 % [facility] LABORATORY Monocyte Abs 0.7 0.3 - 0.9 [facility] x10(3)/[facility] LABORATORY Eosinophils % 0.5 % [facility] LABORATORY Eosinophils Abs 0.0 0.0 - 0.4 [facility] x10(3)/[facility] LABORATORY Basophils % 0.4 % [facility] LABORATORY Basophils Abs 0.0 0.0 - 0.1 [facility] x10(3)/[facility] LABORATORY Immature Gran % 0.40 % [...] 0.04 x10(3)/[facility] MAR Y [facility] LABORATORY Specimen Anatomical Collection Method Collection Time Receive d Time (Source) Location / / Volume Laterality Blood specimen 07/06/2017 2:20 AM 017 2:33 (specimen) EST AM EST Resulting Agency Comment Spec In Lab Daphne Shahid MD HEMATOLOGY ORDERABLES Performing Organization Address City/State/[place] [address] (ABNORMAL) Hemogram (07/06/2017 2:20 AM EST) Analysis Performed At Patho logist Time Signature WBC 7.6 4.0 - 9.5 [facility] x10(3)/[facility] LABORATORY RBC 4.52 (L) 4.58 - [facility] 5.54 [facility] x10(6)/[facility] LABORATORY Hemoglobin 13.4 (L) 13.7 - [facility] 16.5 gm/dL [facility] LABORATORY Hematocrit 39.7 (L) 40.5 - [facility] RYAN 48.5 % [facility] LABORATORY MCV 87.8 82.9 - [facility] 93.1 [facility] LABORATORY MCH 29.6 27.5 - [facility] RYAN 32.1 pg [facility] LABORATORY MCHC 33.8 32.0 - [facility] 35.7 gm/dL [facility] LABORATORY Platelets 189 145 - 357 [facility] x10(3)/[facility] LABORATORY RDWSD 45.6 (H) 36.0 - [facility] 45.0 [facility] LABORATORY RDWCV 14.3 (H) 11.4 - [facility] 13.8 % [facility] LABORATORY MPV 9.1 7.6 - 12.9 [facility] fL [facility] LABORATORY nRBC % Auto 0.0 % [facility] LABORATORY nRBC Abs Auto 0.000 0.000 - [place] ZHAORYAN 0.000 [facility] x10(3)/[facility] LABORATORY Specimen Anatomical Collection Method Collection Time Receive d Time (Source) Location / / Volume Laterality Blood specimen 07/06/2017 2:20 AM 017 2:33 (specimen) EST AM EST Resulting Agency Comment Spec In Lab Daphne Shahid MD HEMATOLOGY ORDERABLES Performing Organization Address City/[facility]/ZIP Code Phon e Number [address] (ABNORMAL) APTT (07/06/2017 2:20 AM EST) P athologist Signature PTT 52 (H) 25 - 35 sec [facility] LABORATORY Comment: The recommended therapeutic range for fu ll dose, unfractionated heparin at [facility] is 80 ? 114 seconds. The use [...] Shahid MD HEMATOLOGY ORDERABLES Performing Organization Address City/[facility]/Z[place] [address] POCT Glucose (07/06/2017 2:20 AM EST) P athologist Signature POC Glucose 115 65 - 199 [facility] mg/dL [facility] LABORATORY Comment: Supplemental [...] City/State/[place] [address] (ABNORMAL) Cardiac Enzymes (LEB/CGP) (07/06/2017 2:20 AM EST) P athologist Signature Troponin-T 2.13 (H) 0.00 - [facility] 0[facility] ng/mL [facility] Comment: [...] additional sample may be indicated. Reference: [place] Definition of Myocardial Infarction. Journal of the [...] City/State/[place] [address] (ABNORMAL) Hemoglobin A1c (07/06/2017 2:20 AM EST) Analysis Performed At Patho logist Time Signature Hemoglobin A1C 6.8 (H) 4.3 - 5.6 [place] DAVIS [facility] LABORATORY Comment: Reference Range: 4.3 - 5.6% [...] Avg Gluc See note mg/dL [place] RYAN [facility] LABORATORY Comment: [...] on [facility] ADA website. Macraio HAMMOND, Ruthann J, Deysi R, et al. ??Tr anslating the A1C assay into estimated average glucose values. ??Diabetes Care 2008:31(8):7494-3778. Specimen Anatomical Collection Method Collection Time Receive d Time (Source) Location / / Volume Laterality Blood specimen 07/06/2017 2:20 AM 017 2:34 (specimen) EST AM EST Resulting Agency Comment Spec In Lab Daphne Shahid MD CHEMISTRY ORDERABLES Performing Organization Address City/State/ZIP Code [place] [address] (ABNORMAL) Lipid Panel (07/06/2017 2:20 AM EST) [facility] Method Time Signature Chol, Total 150 <=239 [place] mg/dL [facility] LAB[facility]ORY Triglycerides 129 <=199 [place] mg/dL [facility] HDL 32 (L) >=40 [place] mg/dL [facility] LDL Cholesterol 92 <=190 [place] mg/dL [facility] Chol/HDL Ratio 4.7 ratio [facility] LABORATORY Lipid See Note [place] Interpretation [facility] Comment: Lipid management should be guided by a p atient? s ASCVD risk, goals and preferences. ACC/AHA Guidelines recommend high intens ity statin if clinical ASCVD or LDL greater than or equal to 190 mg/dL. http://[employer]/KNU-OJH-Ueaozmgtg Adults aged 40-75 with LDL 70-189 mg/dL should have their 10 year ASCVD risk estimated with the ACC/AHA ASCVD risk es timator http://tools.acc.org/VHMYR-Lgqq-Dwuewjkx r/ Statin should be discussed if risk [...] Address City/State/ZIP Code [place] [address] POCT Glucose (07/06/2017 1:09 AM EST) athologist Signature POC Glucose 121 65 - 199 [facility]/dL [facility] Comment: Supplemental [...] City/State/[place] [address] POCT Glucose (07/06/2017 12:06 AM EST) athologist Signature POC Glucose 147 65 - 199 [facility] mg/dL [facility] Comment: Supplemental [...] City/State/[place] [address] (ABNORMAL) POCT Glucose (07/05/2017 10:56 PM EST) athologist Signature POC Glucose 200 (H) 65 - 199 [place] RYAN mg/dL [facility] LAB[facility] Comment: Supplemental [...] City/State/Z[place] [address] (ABNORMAL) POCT Glucose (07/05/2017 10:05 PM EST) athologist Signature POC Glucose 225 (H) 65 - 199 [facility] mg/dL [facility] Comment: Supplemental [...] [facility]/[place] [address] (ABNORMAL) POCT Glucose (07/05/2017 9:02 PM EST) athologist Signature POC Glucose 301 (H) 65 - 199 [facility] mg/dL [facility] Comment: Supplemental [...] [facility]/[place] [address] XR Chest PA or [...] 474 ms MUSE SYSTEM (Bezet) Calculated P Galva 50 degrees MUSE SYSTEM Calculated R Galva -28 degrees MUSE SYSTEM Calculated T Galva 90 degrees MUSE SYSTEM INTERPRETATION Sinus tachycardia [...] (ABNORMAL) Differential, Automated (07/05/2017 8:20 PM EST) [facility] Method Time Signature Neutrophils % 88.4 % [facility] LABORATORY Neutr Abs (ANC) 9.08 (H) 1.70 - [facility] 6.10 [facility] x10(3)/[facility] L LABORATORY Lymphocytes % 7.0 % [facility] LABORATORY Lymphocytes Abs 0.7 (L) 0.9 - 3.2 [facility] x10(3)/[facility] LABORATORY Monocytes % 3.7 % [facility] LABORATORY Monocyte Abs 0.4 0.3 - 0.9 [facility] x10(3)/[facility] LABORATORY Eosinophils % 0.1 % [facility] LABORATORY Eosinophils Abs 0.0 0.0 - 0.4 [facility] x10(3)/[facility] LABORATORY Basophils % 0.2 % [facility] LABORATORY Basophils Abs 0.0 0.0 - 0.1 [facility] x10(3)/[facility] LABORATORY Immature Gran % 0.60 % WHITE [...] Organization Address City/State/[place] [address] (ABNORMAL) Hemogram (07/05/2017 8:20 PM EST) Analysis Performed At Patho logist Time Signature WBC 10.3 (H) 4.0 - 9.5 [facility] x10(3)/[facility] LABORATORY RBC 4.64 4.58 - [facility] 5.54 [facility] x10(6)/[facility] LABORATORY Hemoglobin 14.1 13.7 - [facility] 16.5 gm/dL [facility] LAB[facility] Hematocrit 40.8 40.5 - [facility] 48.5 % [facility] MCV 87.9 82.9 - [facility] 93.1 [facility] LABORATORY MCH 30.4 27.5 - [facility] 32.1 pg [facility] LAB[facility]ATORY MCHC 34.6 32.0 - [facility] 35.7 gm/dL [facility] LAB[facility] Platelets 204 145 - 357 [facility] x10(3)/[facility] LABORATORY RDWSD 46.1 (H) 36.0 - [facility] 45.0 [facility] LABORATORY RDWCV 14.5 (H) 11.4 - [facility] 13.8 % [facility] LABORATORY MPV 9.7 7.6 - 12.9 [facility] LABORATORY nRBC % Auto 0.0 % [facility] LABORATORY nRBC Abs Auto 0.000 0.000 - [facility] 0.000 [facility] x10(3)/[facility] LABORATORY Specimen Anatomical Collection Method Collection Time Receive d Time (Source) Location / / Volume Laterality Blood specimen 07/05/2017 8:20 PM 017 8:27 (specimen) EST PM EST Resulting Agency Comment Spec In Lab Daphne Shahid MD HEMATOLOGY ORDERABLES Performing Organization Address City/State/[place] [address] APTT (07/05/2017 8:20 PM EST) athologist Signature PTT 32 25 - 35 sec [facility] LABORATORY Comment: The recommended therapeutic range for fu ll dose, unfractionated heparin at [facility] is 80 ? 114 seconds. The use [...] Shahid MD HEMATOLOGY ORDERABLES Performing Organization Address City/[facility]/ZIP Code Phon e Number [address] (ABNORMAL) Cardiac Enzymes (LEB/CGP) (07/05/2017 8:20 PM EST) P athologist Signature Troponin-T 2.11 (H) 0.00 - BARBARA RYAN 0.00 ng/mL [facility] Comment: [...] additional sample may be indicated. Reference: [place] Definition of Myocardial Infarction. Journal of the [...] Shahid MD CHEMISTRY ORDERABLES Performing Organization Address City/[facility]/[place] [address] (ABNORMAL) Magnesium (07/05/2017 8:20 PM EST) athologist Signature Magnesium 0.68 (L) 0.69 - 1.07 [facility] mmol/L [facility] LABOR[facility]ORY Specimen Anatomical Collection Method Collection Time Receive d Time (Source) Location / / Volume Laterality Blood specimen 07/05/2017 8:20 PM 017 8:27 (specimen) EST PM EST Resulting Agency Comment Spec In Lab Daphne Shahid MD CHEMISTRY ORDERABLES Performing Organization Address City/State/[place] [address] (ABNORMAL) Basic Metabolic Panel (non-fasting) (07/05/2017 8:20 PM EST) athologist Signature Glucose Lvl 321 (H) 65 - 199 [facility] mg/dL [facility] Comment: [...] [facility] LAB[facility]ORY Estimated GFR >60 >=60 [facility] LABORATORY Comment: The reported eGFR should be multiplied b y 1.2 for patients. The MDRD is not an appropriate measure o f renal function for patients with body mass extremes or in patients with acute kidney failure. http://[employer]/DHnkdep http://[employer]/DHMCnkf Specimen Anatomical Collection Method Collection Time Receive d Time (Source) Location / / Volume Laterality Blood specimen 07/05/2017 8:20 PM 017 8:27 (specimen) EST PM EST Resulting Agency Comment Spec In Lab Daphne Shahid MD CHEMISTRY ORDERABLES Performing Organization Address City/State/[place] [address] (ABNORMAL) POCT Glucose (07/05/2017 7:32 PM EST) P athologist Signature POC Glucose 296 (H) 65 - 199 [facility] mg/dL [facility] Comment: Supplemental [...] City/State/[place] [address] CARDIAC CATHETERIZATION (07/05/2017 6:47 PM EST) Specimen (Source) Anatomical Location Collection Method / Collectio n Time Received Time / Laterality Volume Narrative CARDIOMAC SYSTEM - 07/05/2017 7:27 PM ES T ?[facility] ? Cardiac Cathete rization/Intervention Report ? Patient Name: Natalya, Gregory ? Procedure Date: 07/05/2017 ? A #: [id number] ? Primary Physician: Clarisa, Jet T ? Case #: [id number] ? File Name: [id number] ? Catheterization Order Number: [id number] ? [facility] ? Final Report [place], [place] ? Patient Name: ? Gregory Natalya ?ID#: ?[id number] ? : ?1945 ? Procedure Date: ? [...] presented with: non -STEMI (w/i 7 days). [place] ?[employer] Society angina c lass was IV. [...] angio graphy and IABP insertion in cathode washer. ? Jet Mckenna M.D. ? Electronically Signed by: Jet bunch M.D. ? Report Finalized: 07/05/2017 ??19:23 ? Report Last Ammended: 10/26/2017 ??10:29 ? Procedure Note Jet Mckenna MD - 10/26/2017Formatt ing of this note might be different from the original. [facility] Cardiac Catheterization/Intervention Re port Patient Name: Gregory Hoang Procedure Date: 07/05/2017 A #: [id number] Primary Physician: Jet Mckenna Case #: [id number] File Name: [id number] Catheterization Order Number: [id number] [facility] Final Report [place], [place] Patient Name: Gregory Hoang ID#: [id number] : 1945 Procedure Date: July 05, [...] presented with: non-STEMI ( w/i 7 days). [place] [employer] angina class was IV. No [...] angiograph y and IABP insertion in cathode washer. Jet Mckenna M.D. Electronically Signed by: Jet [...] Mccollum ? (Age): 1945(72y) Med Rec#: ? [id number] ?Sex: ?M ? Site Loc: ? [facility] ?Ht / Wt: ??173(cm)/86(kg) Pt. Loc: ?[facility] ? BSA: ?2 Study Date: ?? 07/05/2017 ?Pt. Type: Inpatient Tape: ? Referring: Daphne Shahid ([id number]) Referring: MANDA ALCANTAR Reading: Blade Preston ([id number]) Team Physician: Dayami Paula BA, [facility] Diagnosis: *ICD-10-PCS Non-ST elevation (NSTEMI) m [...] E-wave Vmax ?0.8 ?m/sec ? MV deceleration [id number] ?msec ? MV A-wave Vmax ?0.8 ?m/sec [...] ? Mid-Inferior ?Akinetic ? Mid-Inferoseptal ?Hypokinetic ? Dubois-Septal ? Akinetic ? Dubois-Anterior ? Hypokinetic ? Dubois-Lateral ?Hypokinetic ? Dubois-Inferior ? Akinetic ? Dubois-Tip ?Akinetic ? This report has been electronically sign ed by: _ Blade Preston MD ? 07/06/2017 08 :53:15 Images reviewed and interpretation [facility] Cardiac Ultrasound Laboratory Procedure Note Blade Preston MD - 07/06/2017Formatt ing of this note might be different from the original. Procedure: Transthoracic Echocardiogram Patient: NATALYA MCBRIDE(Age): [birth year]72y) Med Rec#: [id number] Sex: M Site Loc: [facility] Ht / Wt: 173(cm)/86(kg) Pt. Loc: [facility] BSA: 2 Study Date: 07/05/2017 Pt. Type: Inpatie nt Tape: Referring: Daphne Shahid ([id number]) Referring: MANDA ALCANTAR Reading: Blade Preston ([id number]) Team Physician: Dayami Paula BA, [facility] Diagnosis: *ICD-10-PCS Non-ST elevation (NSTEMI) m [...] MV E-wave Vmax 0.8 m/sec MV deceleration [id number] msec MV A-wave Vmax 0.8 m/sec MV [...] Hypokinetic Mid-Posterolateral Hypokinetic Mid-Inferior Akinetic Mid-Inferoseptal Hypokinetic Dubois-Septal Akinetic Dubois-Anterior Hypokinetic Dubois-Lateral Hypokinetic Dubois-Inferior Akinetic Dubois-Tip Akinetic This report has been electronically sign [...] LABORATORY Neutr Abs (ANC) 5.26 1.70 - [facility] 6.10 [facility] x10(3)/[facility] LABORATORY Lymphocytes % 13.3 % [facility] LABORATORY Lymphocytes Abs 0.9 0.9 - 3.2 [facility] x10(3)/[facility] LABORATORY Monocytes % 8.2 % [facility] LABORATORY Monocyte Abs 0.6 0.3 - 0.9 [facility] x10(3)/[facility] LABORATORY Eosinophils % 0.7 % [facility] LABORATORY Eosinophils Abs 0.0 0.0 - 0.4 [facility] x10(3)/[facility] LABORATORY Basophils % 0.4 % [facility] LABORATORY Basophils Abs 0.0 0.0 - 0.1 [facility] x10(3)/[facility] LABORATORY Immature Gran % 0.40 % [...] 0.04 x10(3)/[facility] MAR Y [facility] LABORATORY Specimen Anatomical Collection Method Collection Time Receive d Time (Source) Location / / Volume Laterality Blood specimen 07/05/2017 4:55 PM 017 5:24 (specimen) EST PM EST Resulting Agency Comment Spec In Lab Daphne Shahid MD HEMATOLOGY ORDERABLES Performing Organization Address City/State/ZIP Code Phon e Number [place] [phone] (ABNORMAL) Hemogram (07/05/2017 4:55 PM EST) Analysis Performed At Patho logist Time Signature WBC 6.8 4.0 - 9.5 [facility] x10(3)/[facility] LABORATORY RBC 4.67 4.58 - [facility] 5.54 [facility] x10(6)/[facility] LABORATORY Hemoglobin 14.0 13.7 - [facility] 16.5 gm/dL [facility] LABORATORY Hematocrit 41.0 40.5 - [facility] 48.5 % [facility] LABORATORY MCV 87.8 82.9 - [facility] 93.1 fL [facility] LABORATORY MCH 30.0 27.5 - [facility] 32.1 pg [facility] LAB[facility]ATORY MCHC 34.1 32.0 - [facility] 35.7 gm/dL [facility] LABORATORY Platelets 197 145 - 357 [facility] x10(3)/[facility] LABORATORY RDWSD 46.4 (H) 36.0 - [facility] RYAN 45.0 [facility] LABORATORY RDWCV 14.5 (H) 11.4 - [facility] 13.8 % [facility] LABORATORY MPV 9.7 7.6 - 12.9 [facility] LABORATORY nRBC % Auto 0.0 % [facility] LABORATORY nRBC Abs Auto 0.000 0.000 - [place] ZHAORYAN 0.000 [facility] x10(3)/[facility] LABORATORY Specimen Anatomical Collection Method Collection Time Receive d Time (Source) Location / / Volume Laterality Blood specimen 07/05/2017 4:55 PM 017 5:24 (specimen) EST PM EST Resulting Agency Comment Spec In Lab Daphne Shahid MD HEMATOLOGY ORDERABLES Performing Organization Address City/State/ZIP Code Phon e Number [place] [phone]OS[address] LAB[address] Drive (ABNORMAL) Cardiac Enzymes (LEB/CGP) (07/05/2017 4:55 PM EST) athologist Signature Troponin-T 1.69 (H) 0.00 - [place] DAVIS 0.00 ng/mL [facility]ORY Comment: [...] additional sample may be indicated. Reference: [place] Definition of Myocardial Infarction. Journal of the [...] Shahid MD CHEMISTRY ORDERABLES Performing Organization Address City/[facility]/ZIP Code Phon e Number [address] (ABNORMAL) pro-Brain Natriuretic Peptide (07/05/2017 4:55 PM EST) athologist Signature ProBNP 1,598 (H) <=125 [facility] pg/mL [facility] LABORATORY Specimen Anatomical Collection Method Collection Time Receive d Time (Source) Location / / Volume Laterality Blood specimen 07/05/2017 4:55 PM 017 5:24 (specimen) EST PM EST Resulting Agency Comment Spec In Lab Daphne Shahid MD CHEMISTRY ORDERABLES Performing Organization Address City/[facility]/Z[place] [address] Magnesium (07/05/2017 4:55 PM EST) athologist Signature Magnesium 0.78 0.69 - 1.07 [facility] mmol/L [facility] LAB[facility]ORY Specimen Anatomical Collection Method Collection Time Receive d Time (Source) Location / / Volume Laterality Blood specimen 07/05/2017 4:55 PM 017 5:24 (specimen) EST PM EST Resulting Agency Comment Spec In Lab Daphne Shahid MD CHEMISTRY ORDERABLES Performing Organization Address City/[facility]/[place] [address] (ABNORMAL) Basic Metabolic Panel (non-fasting) (07/05/2017 4:55 PM EST) P athologist Signature Glucose Lvl 230 (H) 65 - 199 [facility] mg/dL [facility] Comment: Diabetes: [...] [facility] Estimated GFR >60 >=60 [facility] LABOR[facility]ORY Comment: The reported eGFR should be multiplied b y 1.2 for patients. The MDRD is not an appropriate measure o f renal function for patients with body mass extremes or in patients with acute kidney failure. http://[employer]/DHnkdep http://[employer]/DHMCnkf Specimen Anatomical Collection Method Collection Time Receive d Time (Source) Location / / Volume Laterality Blood specimen 07/05/2017 4:55 PM 017 5:24 (specimen) EST PM EST Resulting Agency Comment Spec In Lab Daphne Shahid MD CHEMISTRY ORDERABLES Performing Organization Address City/State/[place] [address] (ABNORMAL) APTT (07/05/2017 4:55 PM EST) athologist Signature PTT 41 (H) 25 - 35 sec [facility] LABORATORY Comment: The recommended therapeutic range for fu ll dose, unfractionated heparin at [facility] is 80 ? 114 seconds. The use [...] Shahid MD HEMATOLOGY ORDERABLES Performing Organization Address City/[facility]/ZIP Code Phon e Number [address] (ABNORMAL) POCT Glucose (07/05/2017 4:53 PM EST) P athologist Signature POC Glucose 208 (H) 65 - 199 [facility] mg/dL [facility] LABOR[facility]ORY Comment: Supplemental [...] [facility]/[place] [address] EKG 12 Lead (07/05/2017 4:32 PM EST) Component Value Ref Range Test Analysis Performed Pathologis t Method Time At Signature Ventricular rate 97 BPM MUSE SYSTEM Atrial Rate 97 BPM MUSE SYSTEM P-R Interval 148 ms MUSE SYSTEM QRS Duration 96 ms MUSE SYSTEM Q-T Interval 364 ms MUSE SYSTEM QTC Calculated 462 ms MUSE SYSTEM (Bezet) Calculated P Galva 48 degrees MUSE SYSTEM Calculated R Galva -33 degrees MUSE SYSTEM Calculated T Galva 98 degrees MUSE SYSTEM INTERPRETATION Normal sinus [...] ECG ORDERABLES Performing Organization Address City/State/ZIP Code [facility] e Number MUSE SYSTEM documented in this [...] post-op day 1 in the AM Give MT if unable to take PO, Routine Given [...] post-op day 1 in the AM Give MT if unable to take PO, Routine atorvastatin [...] injection 0-10 Units 1836 (Given - Provider: mE Jones RN - Comment: ate chocolate ice [...] BG 132)0400 (Not Given - Provider: Denice Jacboson RN - Reason: Order parameters not met [...] post-op day 1 in the AM Give MT if unable to take PO
Routine Group [...]
Routine documented in this encounter Care Teams Oral And Maxillofacial Pathologist Relationship Specialty Start Date End Date Lovely Vicente MD PCP - General 04/16/[address] [place] [address] documented as of this encounter
--- OUTSIDE RECORDS SUMMARY | 2022-03-23 09:44 | XMS_ITS | Encounter Summary ---
:1945 Author Organization [facility] [place] [address] Care Team Providers Name Role Phone Lovely Vicente MD Primary Care Provider Encounter Details Date Type Department Care Team Description 07/10/2016 Telephone Dermatology at [facility] Rigoberto White III, [address] [place] [address] [facility] [phone] [facility], [place] [address] (Wo rk) Social History Tobacco [...] Vitaliy Nobles MD [facility] [address] [place], [place] 0[address] (Wo rk) 05/28/2022 Appointment Cardiology Zulma Dolan MD [facility] [place], [place] 0[address] (Wo rk) 05/28/2022 Laboratory Appointment Lab 05/28/2022 Office Visit Cardiology Zulma oDlan MD [facility] [place] [address] Liz Poole PA [facility] [place] [address] 06/10/2022 Office Visit Dermatology Laura Scherer MD [facility] [address], [place] 0375 (Wo rk) documented as of this encounter Visit Diagnoses Not on filedocumented in this encounter Care Teams Satellite Communications Operator Relationship Specialty Start Date End Date Lovely Vicente MD PCP - General 04/16/[address] [place] [address] documented as of this encounter
--- OUTSIDE RECORDS SUMMARY | 2022-03-23 09:44 | XMS_ITS | Encounter Summary ---
:1945 Author Organization [facility] [place] [address] Care Team Providers Name Role Phone Lovely Vicente MD Primary Care Provider Reason for Visit Reason Comments Skin Check Encounter Details Date Type Department Care Team Description 06/05/2016 Office Visit Dermatology at [facility]to Forman istory of melanoma; Abdelrahman HOOPER MD Seborrheic keratosis; [address] [facility] [place] (actinic keratosis); [place] [address] Multiple nevi; [phone] [facility] [address]DERMATOLGY [place], [place] [address] Social History Tobacco [...] Diagnostic, Drum (ACCU-CHEK COMPACT TEST) Strip by [facility]Non- Drug; Combo Route) route 2 times daily. [...] Nobles MD [facility] CARDIOLOGY [place], [place] 0375 (Wo rk) 05/28/2022 Appointment Cardiology Zulma Dolan MD [facility] [place], [place] 0375 (Wo rk) 05/28/2022 Laboratory Appointment Lab 05/28/2022 Office Visit Cardiology Zulma Dolan MD [facility] [place] [address] Liz Poole PA [facility] [place] [address] 06/10/2022 Office Visit Dermatology Laura Scherer MD [facility] [address], [place] 0[address] (Wo rk) documented as of this encounter Visit Diagnoses Diagnosis History of melanoma Personal history of malignant melanoma o f skin Seborrheic keratosis Other seborrheic keratosis [place] (actinic keratosis) Actinic keratosis Multiple nevi Benign neoplasm of skin, site unspecifie d Scar Scar condition and fibrosis of skin documented in this encounter Care Teams Furniture Builder Relationship Specialty Start Date End Date Lovely Vicente MD PCP - General 04/16/[address] [place] [address] documented as of this encounter
--- OUTSIDE RECORDS SUMMARY | 2022-03-23 09:44 | XMS_ITS | Encounter Summary ---
:1945 Author Organization [facility] [place] [address] Care Team Providers Name Role Phone Lovely Vicente MD Primary Care Provider Reason for Visit Reason Onset Date Comments Medication Refill 12/24/2016 Encounter Details Date Type Department Care Team Description 12/24/2016 Refill Endocrinology at [facility] Luz Stallings MD [facility] [place] [address] ENDOCRINOLOGY DEPT [phone] [place], [place] [address] (Wo lissa) Social History Tobacco [...] Vitaliy Nobles MD [facility] ER DR CARLYLE [place] [address] (Wo rk) 05/28/2022 Appointment Cardiology Zulma Dolan MD [facility] er Dr [place] 0375 (Wo rk) 05/28/2022 Laboratory Appointment Lab 05/28/2022 Office Visit Cardiology Zulma Dolan MD [facility] [place] [address] Liz Poole PA [facility] [place] [address] 06/10/2022 Office Visit Dermatology Laura Scherer MD [facility] ER DR TEJA GR-DERMAT [place], [place] 0[address] (Wo rk) documented as of this encounter Visit Diagnoses Not on filedocumented in this encounter Care Teams Organic Search Lead Relationship Specialty Start Date End Date Lovely Vicente MD PCP - General 04/16/[address] [place] [address] documented as of this encounter
--- OUTSIDE RECORDS SUMMARY | 2022-03-23 09:44 | XMS_ITS | Encounter Summary ---
:1945 Author Organization [facility] [place] [address] Care Team Providers Name Role Phone Lovely Vicente MD Primary Care Provider Reason for Visit Reason Comments Skin Check Encounter Details Date Type Department Care Team Description 04/16/2015 Follow-Up Dermatology at [facility] x of melanoma of skin; Abdelrahman HOOPER MD Multiple benign nevi [address] [place] [address] [facility] [place], [place] [address] (Wo rk) Social History Tobacco [...] Diagnostic, Drum (ACCU-CHEK COMPACT TEST) Strip [place] [facility]Non- Drug; [...] Vitaliy Nobles MD [facility] DR TADEO [place], [place] 0[address] (Wo rk) 05/28/2022 Appointment Cardiology Zulma Dolan MD [facility] [place], [place] 0[address] (Wo rk) 05/28/2022 Laboratory Appointment Lab 05/28/2022 Office Visit Cardiology Zulma Dolan MD [place] [address] Liz Poole PA [facility] [place] [address] 06/10/2022 Office Visit Dermatology Laura Scherer MD [facility] DR [address]-DERMAT [place], [place] 0[address] (Wo rk) documented as of this encounter Visit Diagnoses Diagnosis Hx of melanoma of skin Personal history of malignant melanoma o f skin Multiple benign nevi Benign neoplasm of skin, site unspecifie d documented in this encounter Care Teams Microelectronics Engineer Relationship Specialty Start Date End Date Lovely Vicente MD PCP - General 04/16/[address] [place] [address] documented as of this encounter
--- OUTSIDE RECORDS SUMMARY | 2022-03-23 09:44 | XMS_ITS | Encounter Summary ---
:1945 Author Organization [facility] [place] [address] Care Team Providers Name Role Phone Lovely Vicente MD Primary Care Provider Reason for Visit Reason Comments Follow-up Encounter Details Date Type Department Care Team Description 06/03/2017 Office Visit Dermatology at [facility] benign nevi; Abdelrahman HOOPER MD History of melanoma; [address] [facility] History of dysplastic nevus; [place] [address] Skin exam for malignant neoplasm [phone] [facility] [place], [place] [address] Social History Tobacco Use [...] encounter. Rigoberto Garcia MD Section of Dermatology [facility] documented in this encounter Plan of Treatment Upcoming Encounters Date Type Specialty Care Team Description 03/26/2022 Office Visit Cardiology Vitaliy Nobles MD [facility] DR TADEO [place], [place] 0[address] (Wo rk) 05/28/2022 Appointment Cardiology Zulma Dolan MD [facility] Dr [place], [place] [address] (Wo rk) 05/28/2022 Laboratory Appointment Lab 05/28/2022 Office Visit Cardiology Zulma Dolan MD [facility] [place] [address] Liz Poole PA [facility] [place] [address] 06/10/2022 Office Visit Dermatology Laura Scherer MD [facility] DR TEJA GR[place]DERMAT [place], [place] 0[address] (Wo rk) documented as of [...] skin documented in this encounter Care Teams Wax Pattern Assembler Relationship Specialty Start Date End Date Lovely Vicente MD PCP - General 04/16/15 [facility] [address] [place] [address] documented as of this encounter
--- OUTSIDE RECORDS SUMMARY | 2022-03-23 09:44 | XMS_ITS | Encounter Summary ---
:1945 Author Organization [facility] [place] [address] Care Team Providers Name Role Phone Lovely Vicente MD Primary Care Provider Encounter Details Date Type Department Care Team Description 11/28/2016 Telephone Dermatology at [facility] Rigoberto Garcia III, [address] [place] [address] [facility] [phone] [facility] SIMÓN-DERMAT [place], [place] [address] (Wo rk) Social History Tobacco [...] Vitaliy Nobles MD [facility] [address] THOMAS [place], [place] [address] (Wo rk) 05/28/2022 Appointment Cardiology Zulma Dolan MD [facility] [address] [place] 0[address] (Wo rk) 05/28/2022 Laboratory Appointment Lab 05/28/2022 Office Visit Cardiology Zulma Dolan [place] [address] Liz Poole PA [facility] [place] [address] 06/10/2022 Office Visit Dermatology Laura Scherer MD [facility] DR TEJA MARIE-DERMAT [place], [place] [address] (Wo rk) documented as of this encounter Visit Diagnoses Not on filedocumented in this encounter Care Teams Inspector Integrated Circuits Relationship Specialty Start Date End Date Lovely Vicente MD PCP - General 04/16/[address] [place] [address] documented as of this encounter
--- OUTSIDE RECORDS SUMMARY | 2022-03-23 09:44 | XMS_ITS | Encounter Summary ---
:1945 Author Organization [place] [address] Care Team Providers Name Role Phone Lovely Vicente MD Primary Care Provider Reason for Visit Reason Onset Date Comments Referral 10/30/2015 Urgent referral for mac on SIM[facility]N [place]AVIS Encounter Details Date Type Department Care Team Description 10/30/2015 Telephone Ophthalmology at [facility] C Jayson Ruiz Referral (Urgent [facility] MD Grabiel referral for mac on [facility] DR SIM[address]N [place]IS) [place] [address] OPHTHALMOLOGY DEPT. [phone] [place], [place] [address] (Wo rk) Social History Tobacco [...] Nobles MD [facility] CARDIOLOGY [place], [place] 0[address] (Wo rk) 05/28/2022 Appointment Cardiology Zulma Dolan MD [facility] [place], [place] 0[address] (Wo rk) 05/28/2022 Laboratory Appointment Lab 05/28/2022 Office Visit Cardiology Zulma Dolan MD [facility] [place] [address] Liz Poole PA [facility] [place] [address] 06/10/2022 Office Visit Dermatology Laura Scherer MD [facility] DR TEJA GR-DERMAT [place], [place] [address] (Wo rk) documented as of this encounter Visit Diagnoses Not on filedocumented in this encounter Care Teams Inspector Shells Relationship Specialty Start Date End Date Lovely Vicente MD PCP - General 04/16/[address] [place] [address] documented as of this encounter
--- OUTSIDE RECORDS SUMMARY | 2022-03-23 09:44 | XMS_ITS | Encounter Summary ---
:1945 Author Organization [facility] [place] [address] Care Team Providers Name Role Phone Lovely Vicente MD Primary Care Provider Reason for Visit Reason Onset Date Comments Medication Refill 06/19/2016 Encounter Details Date Type Department Care Team Description 06/19/2016 Refill Endocrinology at [facility] Luz Stallings MD [facility] [place] [address] ENDOCRINOLOGY DEPT [phone] [place], [place] [address] (Wo lissa) Social History Tobacco [...] [facility] ER [address] CARLYLE [place] [address] (Wo rk) 05/28/2022 Appointment Cardiology Zulma Dolan MD [facility] er [address] [place] [address] (Wo rk) 05/28/2022 Laboratory Appointment Lab 05/28/2022 Office Visit Cardiology Zulma Dolan MD [facility] [place] [address] Liz Poole PA [facility] [place] [address] 06/10/2022 Office Visit Dermatology Laura Scherer MD [facility] ER DR TEJA GR-DERMAT [place], [place] [address] (Wo rk) documented as of this encounter Visit Diagnoses Not on filedocumented in this encounter Care Teams Musical Instrument Maker Or Repairer Relationship Specialty Start Date End Date Lovely Vicente MD PCP - General 04/16/[address] [place] [address] documented as of this encounter
--- OUTSIDE RECORDS SUMMARY | 2022-03-23 09:44 | XMS_ITS | Encounter Summary ---
:1945 Author Organization [facility] [place] [address] Care Team Providers Name Role Phone Angela Holliday APRN Primary Care Provider Encounter Details Date Type Department Care Team Description 04/30/2014 Orders Only Endocrinology at [facility] Albertina Palmer, Thyroid cancer [facility] Jorge Boyer MD (Primary Dx) [place] [address] [facility] [phone] CENTER ENDOCRINOLOGY DEPT [place], [place] [address] Social History Tobacco Use Types [...] Nobles MD [facility] ER CARDIOLOGY [place], [place] 0375 (Wo rk) 05/28/2022 Appointment Cardiology Zulma Dolan MD [facility] [place], [place] 0[address] (Wo rk) 05/28/2022 Laboratory Appointment Lab 05/28/2022 Office Visit Cardiology Zulma Dolan MD [facility] [address] Liz Poole PA [facility] [place] [address] 06/10/2022 Office Visit Dermatology Laura Scherer MD [facility] DR TEJA GR-DERMAT [place], [place] [address] (Wo rk) documented as of this encounter Visit Diagnoses Diagnosis Thyroid cancer - Primary Malignant neoplasm of thyroid gland documented in this encounter Care Teams Nursing Technician Relationship Specialty Start Date End Date Angela Holliday APRN PCP - General 01/25/13 04/15/[address] [place] [address] documented as of this encounter
--- OUTSIDE RECORDS SUMMARY | 2022-03-23 09:44 | XMS_ITS | Encounter Summary ---
:1945 Author Organization [facility] [place] [address] Care Team Providers Name Role Phone Lovely Vicente MD Primary Care Provider Reason for Visit Reason Comments Thyroid Cancer Encounter Details Date Type Department Care Team Description 06/05/2015 Office Visit Endocrinology at [facility] Albertina Prescott, History of papillary [facility] MD Luz adenocarcinoma of [facility] thyroid (Primary Dx) [place] [address] CENTER [phone] [place] [address] Social History Tobacco Use Types Packs/Day Years [...] 8:54 AM EST THYROID ULTRASOUND Performed by: Lzu Prescott MD Indication: PTC, f/u US Date: 06/05/2015 Comparison: 04/2014 Real time images of the thyroid gland were obtained using a hiyalife ultrasound machine. All measurements are given as AP x Transverse x Longitudinal Right Lobe: Absent Left Lobe: Absent Isthmus: Absent Central/Lateral neck: no morphologically abnormal lymph nodes. Impression: No sonographic evidence of recurrence. LUZ PRESCOTT MD Carpentry Teacherbiochemistry specialist Section of Endocrinology [facility] Luz Prescott MD - 06/05/2015 [...] Diagnostic, Drum (ACCU-CHEK COMPACT TEST) Strip by [facility].(Non-Drug; Combo Route) route [...] --f/u in 1 year LUZ PRESCOTT MD Carpentry Teacherbiochemistry specialist Section of Endocrinology [facility] documented in this encounter Miscellaneous [...] Vitaliy Nobles MD [facility] DR [place]LE [place], [place] [address] (Wo rk) 05/28/2022 Appointment Cardiology Zulma Dolan MD [facility] Dr [place], [place] 0[address] (Wo rk) 05/28/2022 Laboratory Appointment Lab 05/28/2022 Office Visit Cardiology Zulma Dolan MD [facility] [place] [address] Liz Poole PA [facility] [place] [address] 06/10/2022 Office Visit Dermatology Laura Scherer MD [facility] DR [address]-DERMAT OGY [place], [place] 0375 (Wo rk) documented as of [...] athologist Signature Thyroglobulin 0.6 <=54.9 CERNER ng/mL [facility] Comment: Interpret with caution. Tg levels [...] than those obtained with T4 withdrawal protocol (Jeddo BR et al. J Clin Endo Metab 1999;84:0464-2305). 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
--- OUTSIDE RECORDS SUMMARY | 2022-03-23 09:44 | XMS_ITS | Encounter Summary ---
:1945 Author Organization [facility] [place] [address] Care Team Providers Name Role Phone Lovely Vicente MD Primary Care Provider Reason for Visit Reason Comments Medication Refill Encounter Details Date Type Department Care Team Description 05/10/2015 Refill Endocrinology at [facility] Rosalind Covarrubias, [facility] [place] [address] [facility] [phone] ENDOCRINOLOGY [place], [place] [address] (Mikayla alcaraz) Social History Tobacco [...] Nobles MD [facility] ER DR CARLYLE [place], [place] 0[address] (Wo rk) 05/28/2022 Appointment Cardiology Zulma Dolan MD [facility] er Dr [place] 0[address] (Wo rk) 05/28/2022 Laboratory Appointment Lab 05/28/2022 Office Visit Cardiology Zulma Dolan [place] [address] Liz Poole PA [facility] [place] [address] 06/10/2022 Office Visit Dermatology Laura Scherer MD [facility] ER DR [address] RD-DERMAT [place], [place] 0[address] (Wo rk) documented as of this encounter Visit Diagnoses Not on filedocumented in this encounter Care Teams Small Business Consultant Relationship Specialty Start Date End Date Lovely Vicente MD PCP - General 04/16/[address] [place] [address] documented as of this encounter
--- OUTSIDE RECORDS SUMMARY | 2022-03-23 09:44 | XMS_ITS | Encounter Summary ---
:1945 Author Organization [facility] [place] [address] Care Team Providers Name Role Phone Lovely Vicente MD Primary Care Provider Encounter Details Date Type Department Care Team Description 07/05/2017 Telephone Cardiology Kim Galindo MD [facility] [place] [address] CARDIOLOGY DEPT [phone] [place], [place] [address] (Wo rk) Social History Tobacco [...] 1:54pm Referring Provider: Ivania CROWELL) Patient Location: [facility] Presenting Symptoms per OSH: 72 year old [...] infarct and elevated troponin, [place] [facility] [place] this afternoon and arrhythmia monitoring. Kim Galnido MD Social Scientist documented in this encounter Plan of Treatment Upcoming Encounters Date Type Specialty Care Team Description 03/26/2022 Office Visit Cardiology Vitaliy Nobles MD [facility] CARDIOLOGY [place], [place] [address] (Wo rk) 05/28/2022 Appointment Cardiology Zulma Dolan MD [facility] [place], [place] [address] (Wo rk) 05/28/2022 Laboratory Appointment Lab 05/28/2022 Office Visit Cardiology Zulma Dolan [place] [address] Liz Poole PA [facility] [place] [address] 06/10/2022 Office Visit Dermatology Laura Scherer MD [facility] DR TEJA GR-DERMAT [place], [place] [address] (Wo rk) documented as of this encounter Visit Diagnoses Not on filedocumented in this encounter Care Teams Mobile Security Architect Relationship Specialty Start Date End Date Lovely Vicente MD PCP - General 04/16/[address] [place] [address] documented as of this encounter
--- OUTSIDE RECORDS SUMMARY | 2022-03-23 09:44 | XMS_ITS | Encounter Summary ---
:1945 Author Organization [facility] [place] [address] Care Team Providers Name Role Phone Lovely Vicente MD Primary Care Provider Encounter Details Date Type Department Care Team Description 09/03/2016 Laboratory Appointment Lab at [facility] Hx of [facility] [place] [address] Social History Tobacco Use Types Packs/Day Years [...] [facility] ER DR [place]LE [place], [place] [address] (Wo rk) 05/28/2022 Appointment Cardiology Zulma Dolan MD [facility] [address] [place] [address] (Wo rk) 05/28/2022 Laboratory Appointment Lab 05/28/2022 Office Visit Cardiology Zulma Dolan MD [facility] [place] [address] Liz Poole PA [facility] [place] [address] 06/10/2022 Office Visit Dermatology Laura Scherer MD [facility] ER DR TEJA GR-DERMAT O[place], [place] [address] (Wo rk) documented as of [...] EST) P athologist Signature Thyroglobulin <0.4 <=54.9 [facility] ng/mL [facility] Comment: Interpret with caution. Tg [...] BR et al. J Clin Endo Metab 1999;84:0150-7947). Assay performed using the [employer] T g immunometric assay. (lowest detection limit [...] Address City/State/ZIP Code Phon e Number [address] TSH (09/03/2016 11:07 AM EST) P athologist Signature TSH 3.01 0.27 - 4.20 [facility] mcIU/mL [facility] Specimen Anatomical Collection Method Collection Time Receive d Time (Source) Location / / Volume Laterality Blood specimen 09/03/2016 11:07 7 (specimen) AM EST 11:22 AM EST Resulting Agency Comment Spec In Lab Luz Prescott MD CHEMISTRY ORDERABLES Performing Organization Address City/[facility]/[place] [address] documented in this encounter Visit Diagnoses Diagnosis Hx of papillary thyroid carcinoma Personal history of malignant neoplasm o f thyroid documented in this encounter Care Teams Public Relations Manager Relationship Specialty Start Date End Date Lovely Vicente MD PCP - General 04/16/[address] [place] [address] [address] [place] [address] documented as of this encounter
--- OUTSIDE RECORDS SUMMARY | 2022-03-23 09:44 | XMS_ITS | Encounter Summary ---
:1945 Author Organization [facility] [place] [address] Care Team Providers Name Role Phone Lovely Vicente MD Primary Care Provider Reason for Visit Reason Comments Skin Lesion Encounter Details Date Type Department Care Team Description 11/24/2016 [facility]oplasm of uncertain behavior of skin; Road IIIMD Pigmented skin lesion of uncertain natur e; [address] [facility] [place] of [place] [address] [facility] SIMÓN-DERMATOLGY [place], [place] 0[address] Social History Tobacco Use [...] or concerns, please call the office at [phone]. If it is after 5PM, or a holiday or weekend, please call [phone] and ask for the Internet Project Manager on-call. documented in this encounter Progress Notes [...] 71 y.o. year old male.Established patient of [employer]. Last seen 06/05/16. Here today for new [...] encounter. Rigoberto Garcia MD Section of Dermatology [facility] documented in this encounter Plan of Treatment Upcoming Encounters Date Type Specialty Care Team Description 03/26/2022 Office Visit Cardiology Vitaliy Nobles MD [facility] DR CARLYLE [place], [place] [address] (Wo lissa) 05/28/2022 Appointment Cardiology Zulma Dolan MD [facility] Medical [facility] [address] [place] [address] (Wo lissa) 05/28/2022 Laboratory Appointment Lab 05/28/2022 Office Visit Cardiology Zulma Dolan MD [facility] [place] [address] Liz Poole PA [facility] [place] [address] 06/10/2022 Office Visit Dermatology Laura Scherer MD [facility] ER DR [address]-DERMAT [place], [place] 0[address] (Wo rk) documented as [...] Of [place] gist Range Method Time Signature Surgical [id number] ?Location: [facility] Report The signing pathologist has [...] MD PATHOLOGY/CYTOLOGY ORDERABLE S Performing Organization Address City/[facility]/[place] [address] Specimen to Pathology (NON-OR) [...] MD PATHOLOGY/CYTOLOGY ORDERABLE S Performing Organization Address City/[facility] [place] [address] documented in this encounter Visit Diagnoses Diagnosis Neoplasm of uncertain behavior of skin Pigmented skin lesion of uncertain natur e History of melanoma Personal history of malignant melanoma o f skin documented in this encounter Care Teams Rn Neonatal Icu Relationship Specialty Start Date End Date Lovely Vicente MD PCP - General 04/16/[address] [place] [address] documented as of this encounter
--- OUTSIDE RECORDS SUMMARY | 2022-03-23 09:44 | XMS_ITS | Encounter Summary ---
:1945 [place] [address] Care Team Providers Name Role Phone Lovely Vicente MD Primary Care Provider Reason for Visit Reason Onset Date Comments Other 12/09/2016 RESULTS Encounter Details Date Type Department Care Team Description 12/09/2016 Telephone Dermatology at [facility] Halima Cadet MD Other (RESULTS) [address] [facility] [place] [address] [facility]-DER[facility] [phone] [place], [place] [address] (Wo rk) Social History Tobacco [...] EDT Spoke with patient's , Kisha (personal account development representative). I advised her Don's pathology results [...] back. She can be reached back at [phone] documented in this encounter Plan of Treatment Upcoming Encounters Date Type Specialty Care Team Description 03/26/2022 Office Visit Cardiology Vitaliy Nobles MD [facility] [address] TADE[address] [place], [place] [address] (Wo rk) 05/28/2022 Appointment Cardiology Zulma Dolan MD [facility] [place], [place] [address] (Wo rk) 05/28/2022 Laboratory Appointment Lab 05/28/2022 Office Visit Cardiology Zulma Dolan MD [facility] [place] [address] Liz Poole PA [facility] [place] [address] 06/10/2022 Office Visit Dermatology Laura Scherer MD [facility] DR [address]-DERMAT [place], [place] [address] (Wo rk) documented as of this encounter Visit Diagnoses Not on filedocumented in this encounter Care Teams Honing Machine Operator Tool Relationship Specialty Start Date End Date Lovely Vicente MD PCP - General 04/16/[address] [place] [address] documented as of this encounter
--- OUTSIDE RECORDS SUMMARY | 2022-03-23 09:44 | XMS_ITS | Encounter Summary ---
:1945 [place] [address] Care Team Providers Name Role Phone Lovely Vicente MD Primary Care Provider Reason for Visit Auth/Cert Specialty Diagnoses / Procedures Referred By Contact Refer red To Contact Diagnoses STEMI (ST elevation myocardial infarction) NSTEMI STEMI Procedures CARDIAC CATHETERIZATION NAYE IPI Referral ID Status Reason Start Date Expiration Date Visits Requ ested Visits Authorized [id number] 1 1 Encounter Details Date Type Department Care Team Description 07/05/2017 Surgery Laboratory Secretary Jet Guan, CARDIAC CATHETERIZATION [facility] [place] [address] CARDIOLOGY DEPT. [phone] [place], [place] [address] (Wo rk) Social History Tobacco [...] this encounter Discharge Summaries Martha Teague S, PSYCHIATRIC CLINICIAN - 07/14/2017 9:38 AM EST Inpatient - [...] , @ 1:20p Patient to follow-up with Rn Radiology/heart failure team in one week. An appointment will be made for you. You may call [phone] Patient to follow-up with Cardiac Surgery, Dr. Yuan Webber, in ~ 4 weeks with CXR, EKG. Inpatient Provider Contact Information: [facility] Section of Cardiac Surgery [facility] [place] [address] FAX [phone] Discharge Diagnoses (Hospital Problems) Primary Diagnoses: CAD [...] 33.75) performed by Yuan Webber MD at [facility] OR ??? PRO CABG, ARTERY-VEIN, TWO N/A 07/07/2017 @CABG, TWO VENOUS GRAFTS & ARTERIAL GRAFT (WRVU 7.93) performed by Yuan Webber MD at [facility] OR ??? PRO COLONOSCOPY, REMV LESN, SNARE 01/16/2014 COLONOSCOPY, POLYPECTOMY, REMOVAL LESION BY SNARE performed by Nohemi Jaimes MD at [facility] ENDOSCOPY ??? PRO ENDOSCOPY W/VIDEO-ASST VEIN HARVEST, CABG Right 07/07/2017 ENDOSCOPIC HARVEST VEIN(S) FOR CABG (WRVU 0.31) performed by Yuan Webber MD at [facility] OR ??? PRO THYROIDECTOMY 03/28/2013 THYROIDECTOMY, TOTAL OR COMPLETE performed by Manny Mcknight MD at [facility] OR Prior To Admission Medications Prescriptions Prior to Admission Medication Sig Dispense Refill Last Dose ??? levothyroxine (SYNTHROID) 175 mcg Tablet Take 1 tablet by mouth daily. 90 tablet 3 07/05/2017 [id number] ??? ascorbic acid, vitamin C, (VITAMIN C) [...] hospital and ruled infor non-ST segment elevation UT. This almost certainly represents the residual of [...] Hospital Course: Gregory Hoang was admitted to [facility] on 07/05/2017 via the Cardiology Service. During his hospital course, he was taken emergently to the labor economist for an ongoing STEMI. An IABP was [...] not take or discontinue any prescription or zchw-pkx-fuerutc medications without asking your doctor or pharmacist [...] day to have your insulin doses adjusted. [facility] [place]ocrine [...] Yuan Webber and/or the Cardiac Surgery Physician Tobacco Drummer Team may be reached at . Weight: [...] Dr. Yuan Webber. You may use a Philip Track or treadmill but avoid any pulling [...] with the surgeon. Do not ride motorcycles, [employer] tractors or horses. Avoid the use of [...] should resume a low fat, low cholesterol, [place] [employer] Diet/Diabetic diet. Driving: No driving [...] , @ 1:20p Patient to follow-up with Rn Radiology/heart failure team in one week. Appointment will be made for you. You may call [phone] Patient to follow-up with Cardiac Surgery, Dr. Yuan Webber, in ~ 4 weeks with CXR, EKG. Cardiac Rehabilitation: Gregory Hoang was seen today regarding participation in the outpatient Phase 2 Cardiac Rehabilitation at [facility]. The patient agrees to a referral to this program. The referral will be sent at discharge and the patient should be contacted by the Program within 1- 2 weeks from discharge. ?? Future Appointments and Orders Future Appointments Provider Department Dept Phone 09/07/2017 3:00 PM LAB, THREE L Lab 3L [facility] [phone] 09/07/2017 4:00 PM Luz Prescott MD Endocrinology at [place] [phone] Future Orders Complete By Expires EKG 12 Lead [EKG1 Custom] 08/14/2017 02/13/2018 Process Instructions: Scheduling Instructions: Questions: Which [facility] location will this be performed?: [place] Is a rhythm strip needed?: No If EKG Reason is Pre-op Evaluation, indicate diagnosis for surgery.: XR Chest PA & Lateral (Generic) [52411 [id number] Custom] 08/14/2017 02/13/2018 Process Instructions: Scheduling Instructions: Questions: Where will study be performed?: [place] [facility] Portable exam?: Reason for exam and clinical history: CABG x 3 Other pertinent information: Stat read required?: Date of injury if applicable: Requested Time: Referral to Cardiac Rehab [ITM745 Custom] As directed Process Instructions: If no progress note charted, please enter Clinical details in comments. Scheduling Instructions: Questions: My question or request is: s/p CABG. Cardiac rehab at [facility] Referral to Home Health - at DISCHARGE [[id number] CPT(R)] As directed Process Instructions: Scheduling Instructions: Comments: DOCUMENTATION FOR VNA SERVICES (INCLUDING THOSE PATIENTS WITH MEDICARE COVERAGE REQUIRING HOME VNA SERVICES AND/OR HOSPICE SERVICES) PATIENT'S LOCATION: Gregory Hoang [address] [place] [address] [place] [address] (home) Telephone Information: School Program Director's Name: self In discussion with the attending physician, it is certified that this patient is under their care and that they, or a Nurse Practitioner, or Physician Tobacco Drummer who is working directly with them, had [...] [facility] ([facility] [place] [facility] in [place]) PHONE: [phone] FAX: [phone] RN orders: Cardiopulmonary assessment, incisional assessment, assess vital signs, assessment of rehab progress, medication management and effectiveness, home safety evaluation. Please draw INR if indicated and send result to:Dr Vicente [phone] PT ORDERS: Continue rehab for endurance, gait stability and strength with mobility and transfers. Home safety evaluation. Home exercise program if appropriate. Start of Care Date:24-48 hours after discharge SPECIAL INSTRUCTIONS: For any follow up questions, needs, or issues please call the Cardiac Surgery Office at [phone] FOR MEDICARE ONLY: (please delete this section [...] OR AFTER 07/17/2017 Signed: Martha Teague APRN [facility] Section of Cardiac Surgery [facility] [address] FAX [phone] Date: 07/14/2017 CC: MD Ivania Cr Betsy, PA [address] [place] [phone] documented in this encounter Discharge Instructions Discharge [...] day to have your insulin doses adjusted. [facility] Endocrine [...] not take or discontinue any prescription or bdyg-wvs-jxnvapj medications without asking your doctor or pharmacist [...] day to have your insulin doses adjusted. [facility] Endocrine [...] Yuan Webber and/or the Cardiac Surgery Physician Tobacco Drummer Team may be reached at . ?? [...] Dr. Yuan Webber. You may use a Philip Track or treadmill but avoid any pulling [...] with the surgeon. Do not ride motorcycles, [employer]'s tractors or horses. Avoid the use [...] should resume a low fat, low cholesterol, [employer] Heart [employer] Diet/Diabetic diet. ?? Driving: No [...] @ 1:20p ?? Patient to follow-up with Rn Radiology/heart failure team in one week. An appointment has been made for you, you can call [phone] ?? Patient to follow-up with Cardiac Surgery, Dr. Yuan Webber, in ~ 4 weeks with CXR, EKG. ? Cardiac Rehabilitation: Gregory Hoang??was seen today regarding participation in the outpatient Phase 2 Cardiac Rehabilitation at [facility]. ?? The patient agrees to a referral to this program.? The referral will be sent at discharge and the patient should be contacted by the Program within 1- 2 weeks from discharge. ? Future Appointments and Orders Future Appointments Provider Department Dept Phone ?? 09/07/2017 3:00 PM LAB, THREE L Lab 3L [facility] [phone] ?? 09/07/2017 4:00 PM Luz Prescott MD Endocrinology at [place] [phone] Future Orders Complete By Expires ?? EKG 12 Lead [EKG1 Custom] 08/14/2017 02/13/2018 ?? Process Instructions: ? Scheduling Instructions: ? Questions: ? Which location will this be performed?: [place] ?? Is a rhythm strip needed?: No ?? If EKG Reason is Pre-op Evaluation, indicate diagnosis for surgery.: ?? XR Chest PA & Lateral (Generic) [[id number] Custom] 08/14/2017 02/13/2018 ?? Process Instructions: ? Scheduling Instructions: ? Questions: ? Where will study be performed?: [place] [facility] ?? Portable exam?: ?? Reason for exam and clinical history: CABG x 3 ?? Other pertinent information: ?? Stat read required?: ?? Date of injury if applicable: ?? Requested Time: ?? Referral to Cardiac Rehab [UBT479 Custom] As directed ? Process Instructions: ?? If no progress note charted, please enter Clinical details in comments. ?? Scheduling Instructions: ? Questions: ? My question or request is: s/p CABG. Cardiac rehab at [facility] ? Arrangements for VNA/home care: [...] RN - 07/14/2017 2:34 PM EST The patient/veterans employment representative has been provided a list of Home Health Agencies/DME vendors which serve their preferred geographic area. A letter describing our affiliations was reviewed with them and theywere educated about their right to choose where referrals are placed. Patient requests referral to [facility] [employer]. PHONE: [phone] FAX: [phone] Expected date of discharge: 07/14 Referral routed to the Wharf Operator for matching with agency/vendor and to [...] day to have your insulin doses adjusted. [facility] Endocrine clinic office Kathie Carrera APRN [facility] Endocrinology Diabetes Management Pager [phone] minutes of this 35 minute visit was spent with the patient in counseling on diabetes and treatment plan, reviewing all glucose and insulin data as well as relevant laboratory results with the patient, and coordination of care on the inpatient unit including nursing and primary team. Zulma Andres RN - 07/14/2017 10:30 AM EST The patient/veterans employment representative has been provided a list of Home Health Agencies/DME vendors which serve their preferred geographic area. A letter describing our affiliations was reviewed with them and theywere educated about their right to choose where referrals are placed. Patient requests referral to : Yasmani Munguia ([facility] [place] [facility]-is in [place]) PHONE: [phone] FAX: [phone]. Expected date of discharge: 07/14/17 Referral routed to the Wharf Operator for matching with agency/vendor and to [...] #6 s/p CABG X3. FSBG 80 at ID, reports no symptoms but did drink some [...] Will continue to follow Katerin Azul APRN [facility] Endocrinology Diabetes Management Pager [phone] minutes of this 25 minute visit [...] of infiltration/extravasation Discussed plan of care with TACKER ELASTIC BAND and RN. Elevate exrtemity and apply intermittent Warm compresses. Name of MD contacted Dr. Shaw Brown 07/13/2017 @ 0655 Name of RN contacted Ale Rangel RN Name of Pharmacist if consulted NA Name of Plastics MD ( if consulted) NA (Mandatory photo for infiltrations/ extravasations scoring a stage 2 or greater, but recommended forstage 1)( include measuring tape and identifier in the photo) NUTRITION AND DIETETICS INSTRUCTOR CARING FOR THIS PATIENT WILL CONTINUE TO [...] measuring tape and identifier in the photo) NUTRITION AND DIETETICS INSTRUCTOR CARING FOR THIS PATIENT WILL CONTINUE TO [...] regard to both infiltrates addressed by this marine underwriter.All of Mr. Hoang's responses were entirely appropriate. Images of infiltrates attached here. Martha Sharp APRN - 07/13/2017 8:01 AM EST Cardiac Surgery Progress Note: ID: [id number] 72 year old male POD#6 s/p CABGx3 [...] discharge. ?? I have met with the patient/veterans employment representative to discuss discharge planning needs. I have provided the [facility], Office of Care Management letter from the Merchandising Specialist pertaining to rehab referrals. I have also provided a letter describing our affiliations within the [facility] and educated them about their right to choose where referrals are placed. ?? I reviewed the different levels of rehab including SNF, swing, acute and LTAC with the patient/veterans employment representative. ?? The patient/veterans employment representative has been provided a list of facilities within their preferred geographic area. ?? I have requested that the patient/veterans employment representative provide at least three choices for referral. ?? The patient/veterans employment representative have requested referrals to: ?? 1. . ?? 2. [facility] ?? 3. More to be entered ?? Expected date of discharge: 07/14 Note routed to Wharf Operator who will communicate referrals to facilities [...] hours. If BG remains greater than 240, gtagoc32 units (no more than three times) & [...] hours. If BG remains greater than 240, miwdfq83 units (no more than three times) & call for new basal insulin orders. ??If less than 240 after two hours, give no insulin and resume prior schedule. Will continue to follow Katerin Azul APRN [facility] Endocrinology Diabetes Management Pager [phone] minutes [...] AM EST Cardiac Surgery Progress Note: ID: [id number] 72 year old male POD#5 s/p CABGx3 [...] 07/11/2017 7:18 PM EST Patient arrived from [facility]. VSS. MSI dressing pulled off [...] AM EST Cardiac Surgery Progress Note: ID: [id number] 72 year old male POD#4 s/p CABGx3 [...] hours. If BG remains greater than 240, ceqemh46 units (no more than three times) & [...] AM EST Cardiac Surgery Progress Note: ID: [id number] 72 year old male POD#3 s/p CABGx3 [...] Gas) No results found for: PHART, PO2ART, CVJ0WPR Assessment/Plan: 72 year old male POD#3 s/p [...] Mami Thao - 07/09/2017 6:29 PM EST Marine Farmer Encounter Note Patient Name: Gregory Hoang : [id number] MR#: [id number] Admit Date: 07/05/2017 4:20 PM Hospital Day 4 days Narrative: Patient was sitting in chair, hugging heart pillow, opened his eyes, nodding to come into room Assessment: Patient was sleepy. Intervention and Outcome: Introduced casting sorter services and patient reached his hand out in appreciation. Follow-up: Marine Farmer remains available for support. Time in Direct [...] AM EST Report given to field staff to cover care Maddison Cee PA - 07/09/2017 9:00 AM EST Cardiac Surgery Progress Note: ID: [id number] 72 year old male POD#2 s/p CABGx3 [...] Attending Surgeon on rounds. Signed: STEPHANIE Iqbal [facility] Section of Cardiac Surgery Date: 07/09/2017 [place] [...] when IABP d/c'ed. Gretchen Carolina, PT Pager [phone] Maddison Cee PA - 07/08/2017 11:27 AM EST Cardiac Surgery Progress Note: ID: [id number] 72 year old male POD#1 s/p CABGx3 [...] Attending Surgeon on rounds. Signed: STEPHANIE Iqbal [facility] Section of Cardiac Surgery Date: 07/08/2017 Nick [...] in place in R femoral. No hematoma. STUDENT FINANCIAL AID MANAGER- Intact Psych- Anxious Skin- Dry, no [...] intact. IABP in place in R femoral. STUDENT FINANCIAL AID MANAGER- Intact Psych- Anxious Skin- Dry, no [...] note for details. DAPHNE SHAHID MD Pager [phone] Jet Mckenna MD - 07/05/2017 6:48 PM EST Preliminary Cardiac Catheterization Procedure Note: Procedure(s) performed: Left heart cath, IABP insertion Access: Right BENEFITS ASSISTANT-->8fr IABP A time-out was conducted prior [...] Heparin gtt maintained. Pt transferred to labor economist. documented in this encounter H&P Notes Daphne Shahid MD - 07/05/2017 6:08 PM EST CARDIOLOGY HISTORY & PHYSICAL EXAM Date of Admission: 07/05/2017 ( Hospital Day 0 days ) Responsible Attending: Daphne Shahid MD PCP: Lovely Vicente MD PCP#: [phone] Patient Active Problem List Diagnosis Code ??? [...] load with heparin drip and transferred to [facility]. While there, continued sob, question of chest pain. Stat TTE showing WMA diffusely and EF around 20%. No significant valvular disease. Taken to the labor economist urgently for ongoing STEMI. [facility] Labs: INR 1.0 WBC 5.88 [...] I/O - s/p lasix in the labor economist, redose to aim net neg 1L by [...] Medicine, PGY-2 Cardiology S1, Team Pager # [phone] CARDIOLOGY ATTENDING NOTE Patient: Gregory Hoang Date [...] amenable for PCI. DAPHNE SHAHID MD Pager [phone] documented in this encounter Miscellaneous Notes Consult Note - Daphne Shahid MD - 07/14/2017 11:46 AM EST Heart Failure Service Inpatient Consult Note Gregory Hoang Date of : 1945 Age: 72 y.o. Today's date: 07/14/17 PCP: Lovely Vicente MD HOSPITAL MANAGER: None Place of Service: [facility] Reason for Consult: Dr. Webber has requested [...] 33.75) performed by Yuan Webber MD at [facility] OR ??? PRO CABG, ARTERY-VEIN, TWO N/A 07/07/2017 @CABG, TWO VENOUS GRAFTS & ARTERIAL GRAFT (WRVU 7.93) performed by Yuan Webber MD at [facility] OR ??? PRO COLONOSCOPY, REMV LESN, SNARE 01/16/2014 COLONOSCOPY, POLYPECTOMY, REMOVAL LESION BY SNARE performed by Nohemi Jaimes MD at [facility] ENDOSCOPY ??? PRO ENDOSCOPY W/VIDEO-ASST VEIN HARVEST, CABG Right 07/07/2017 ENDOSCOPIC HARVEST VEIN(S) FOR CABG (WRVU 0.31) performed by Yuan Webber MD at [facility] OR ??? PRO THYROIDECTOMY 03/28/2013 THYROIDECTOMY, TOTAL OR COMPLETE performed by Manny Mcknight MD at [facility] OR Outpt Meds: Current Outpatient Prescriptions [...] following studies: EKG 07/14/17: NSR 75 bpm, COMMUNICATIONS EQUIPMENT INSTALLER anterior infarct, LAD CXR 07/11/17: FINDINGS: Sternotomy wires. The patient has been extubated, left chest tube removed, and [place]-Suzi catheter removed since the 07/07/2017 study. Atelectasis [...] was discussed with Zehra. Jaden Kelley MD Lead Level Designer Pager [phone] CARDIOLOGY ATTENDING NOTE Patient: Gregory Hoang Date [...] heart failure clinic. DAPHNE SHAHID MD Pager [phone] Plan of Care - Alden Chavarria PTA [...] home with assist Alden Chavarria PTA Pager: [phone] Inpatient Physical Therapy Problem: Acute Rehab Services [...] sit/sit to supine -- Bed Mobility Goal, Humphreys Level supervision required -- Bed Mobility Goal, [...] - 3 days -- Gait Training Goal, Humphreys Level supervision required -- Gait Training Goal, [...] days -- Transfer Training Goal, Activity Type cwn-bb-hhqoj/ewmpb-ml-zrc;lwa-hs-brljx/bewkc-eq-rpg;toilet -- Transfer Train Goal, Humphreys Level supervision required -- Transfer Training Goal, [...] keeping present for 2 days per family. Instrumentation Engineering Technician noted of frustrations, house keeping sent to room. Patient offered showered twice, refused. at bedside, frustrated that shower not complete, informed that patient had refused several times. requesting to see SUPERVISOR FABRICATION, paged sent to Martha, will come to bedside (middle of consult). not willing to wait, Martha notified that family had gone home. Encouraged to come for morning rounds a t 8am. Diabetes team at bedside - insulin adjustments made. Call cabello in reach. Continue to monitor. PLAN MOVING FORWARD: Ambulate, dressing changes BID, Please change drsg at 4am per Martha SUPERVISOR FABRICATION request. INDIVIDUALIZED FALL PREVENTION INTERVENTIONS: Patient-specific fall [...] levels on the lower side, 60ml of Robertson juice given after a FS of 80. [...] Conf 07/13/17 0502 Interdisciplinary Rounds/Family Conf Participants geriatric case manager;dietitian/nutrition services;nursing;occupational therapy;patient;pharmacy;physical therapy;physician Plan of [...] monitoring required during toileting and ADLs]: RN TACKER ELASTIC BAND Surveillance [continuous indirect monitoring]: Barrett Monitor CPG [...] Anticipated Discharge Disposition: home with assist Pager: [phone] CLARISSA SEGAL, PT 07/12/2017 Physical Therapy Rehabilitation [...] to sit/sit to supine Bed Mobility Goal, Humphreys Level supervision required Bed Mobility Goal, Additional Goal adheres to psternal precautions for transfer Goal: Gait Training Goal Stand Alone Therapy Goal Outcome: Ongoing (Interventions Implemented as Appropriate) 07/12/17 1225 Gait Training Goal Gait Training Goal, Date Established 07/12/17 Gait Training Goal, Time to Achieve 2 - 3 days Gait Training Goal, Humphreys Level supervision required Gait Training Goal, Assist [...] 3 days Transfer Training Goal, Activity Type ypv-cn-zhkmy/vqwny-lj-uei;fls-sy-uhhdq/cculf-md-cmn;toilet Transfer Train Goal, Humphreys Level supervision required Transfer Training Goal, Additional Goal adheres to sternal precautions during transfer Consult Note - Octavia Vaughn RN - 07/12/2017 10:50 AM EST [facility] [place]ILITATION Gregory Hoang was seen today regarding participation in the outpatient Phase 2 Cardiac Rehabilitation at [facility]. The patient agrees to a [...] IV site, amio to other piv and WOOD DRILLING MACHINE OPERATOR at bedside to help assess, [...] staff, he stood and marched in place. [place] weak, wanting to sit back down. Remained [...] Health/Prescription Coverage: Primary Insurance: MEDICARE Secondary Insurance: [employer] [place] Prescription Coverage: yes Preferred Pharmacy: [facility] Other: none Primary Care Provider: Lovely Vicente MD [phone] Patient/Caregiver Goals of Treatment:live and get my breath back Potential Needs for Transition of Care: Rehab/SNF: [facility] Home Health: NA DME: TBD Dialysis: na Community Resources: available Transportation: yes Other: none Anticipated Barriers to Discharge/Special Considerations: none Plan: Likely SNF Rehab before home A member of the Care Management team will continue to monitor progress, follow for continuity of care and assist with transition of care planning. ERLIN Weiss Pager: [phone] Consult Note - Katerin Azul RN - [...] review of fdc diabetes care. Diabetes History: Gregory Hoang has [...] to d/c gtt and start CF. intermodal customer service diabetes care: Medications - Outpatient treatment regimen recommendations pending based on the hospital course. Monitoring - continue BG tid ac & hs Diet - low fat/low carb diet Exercise - weight-bearing exercise 30 min/day, as tolerated Thank you for allowing us to provide care for your patient W/E coverage, Dr. Jeane Tatum, pager [phone] Katerin Azul APRN Endocrinology Diabetes Management Pager [phone] Plan of Care - Stephanie Godoy, RN [...] Webber MD - 07/07/2017 6:27 PM EST [facility] Operative Note Patient Name: Gregory Hoang : [id number] MR#: [id number] Case Date: 07/07/2017 Surgeon: Surgeon(s) and Role: * Yuan Webber MD - Primary * Michael Drake PA - Physician Tobacco Drummer * Linda Flores PA - Physician Tobacco Drummer Preoperative diagnosis: 3VD Postoperative diagnosis: CAD, severe [...] Operative Note Patient Name: Gregory Hoang : [id number] MR#: [id number] Case Date: 07/07/2017 Surgeon: Surgeon(s) and Role: * Yuan Webber MD - Primary * Michael Drake PA - Physician Tobacco Drummer * Linda Flores PA - Physician Tobacco Drummer Preoperative diagnosis: 3VD Postoperative diagnosis: CAD, severe [...] (reference Cardiac: ACS (Acute Coronary Syndrome) (Adult) [facility]). 07/07/17621 Cardiac: ACS [...] major CV events such as , stroke, UT, repeat revascularization compared to PCI). In this [...] Hahn, MS3 [employer] [facility] Cardiology S1 (Pager [phone]) Plan of Care - Emelia Ibarra RN [...] hospital and ruled infor non-ST segment elevation UT. This almost certainly represents the residual of [...] performed by Manny Mcknight MD at [facility] MAIN OR ??? PRO COLONOSCOPY, REMV LESN, SNARE 01/16/2014 COLONOSCOPY, POLYPECTOMY, REMOVAL LESION BY SNARE performed by Nohemi Jaimes MD at [facility] ENDOSCOPY ??? PRO THYROIDECTOMY 03/28/2013 THYROIDECTOMY, TOTAL OR COMPLETE performed by Manny Mcknight MD at [facility] MAIN OR Social History: Social [...] with other involved physicians Yuan Webber MD [phone] Med Student Progress Note - Katty Hahn [...] major CV events such as , stroke, UT, repeat revascularization compared to PCI). In this [...] BiPAP - s/p lasix in the labor economist, was net -1.5L - s/p plavix load, [...] insulin drip - hold metformin - f/u [facility] ?? #Home Meds - continue levothyroxine 175mcg - CPAP at night ?? # Routine - DVT PPx: heparin drip - Diet: Healthy heart diet, NPO at midnight for CABG tomorrow - Code Status: FULL - Dispo: CVCC Katty Hahn, M3 [facility] S1 (Pager [phone]) Plan of Care - Stephanie Godoy RN - 07/06/2017 5:00 AM EST Problem: Patient Care Overview Goal: Plan of Care Review 07/06/17 6106 Coping/Psychosocial Plan Of Care Reviewed With patient;family [...] urinal without difficulty. Lasix given in labor economist, 1.4 L out at this time. Pt [...] Outcome: Ongoing (Interventions Implemented as Appropriate) 07/06/17 8226 Cardiac: ACS (Acute Coronary Syndrome) Problems Assessed [...] Nobles MD [facility] [address] [place], [place] [address] (Wo rk) 05/28/2022 Appointment Cardiology Zulma Dolan MD [facility] [address] [place], [place] [address] (Wo rk) 05/28/2022 Laboratory Appointment Lab 05/28/2022 Office Visit Cardiology Zulma Dolan MD [facility] [place] [address] Liz Poole PA [facility] [place] [address] 06/10/2022 Office Visit Dermatology Laura Scherer MD [facility] [address], [place] [address] (Wo rk) Scheduled Orders Name [...] procedure are i n the results section. REWORK OPERATOR SCAN 07/15/2017 12:00 Res ults for [...] Routine 07/08/2017 4:00 Results f or this [place] [place] AM [...] Routine 07/07/2017 5:15 Results f or this [place] [place] AM [...] Routine 07/06/2017 7:40 Results f or this [place] [place] PM [...] Timed 07/06/2017 2:10 Results f or this [place] [place] PM [...] section. TYPE AND SCREEN Routine 07/06/2017 12:00 ([facility] [place] PM [...] Routine 07/06/2017 8:10 Results f or this [place] [place] AM [...] Routine 07/06/2017 2:20 Results f or this [place] [place] AM [...] Routine 07/05/2017 8:20 Results f or this [place] [place] [place] PM EST procedure are [...] 2017 EXAMINATION: XR CHEST PA AND LATERAL (NvelopedIC) CLINICAL HISTORY: CABG x 3 TECHNIQUE: PA [...] Teague APRN IMG DX ORDERABLES SCAN DOC: REWORK OPERATOR (07/15/2017 12:00 AM EST) Narrative 07/15/2017 [...] Signature POC Glucose 186 65 - 199 [facility] mg/dL [facility] Comment: Supplemental ranges: <140 mg/dL before meals <180 mg/dL all other times of the day Specimen Anatomical Collection Method Collection Time Receive d Time (Source) Location / / Volume Laterality Blood specimen 07/14/2017 11:56 7 (specimen) AM EST 11:56 AM EST Yuan Webber MD POINT OF CARE TEST ORDERABLE S Performing Organization Address City/State/[place] [address] POCT Glucose (07/14/2017 7:52 AM EST) athologist Signature POC Glucose 126 65 - 199 [facility] mg/dL [facility] Comment: Supplemental ranges: [...] [facility]/[place] [address] (ABNORMAL) Prothrombin Time (07/14/2017 [...] Wilson APRN HEMATOLOGY ORDERABLES Performing Organization Address City/[facility]/[place] [address] Potassium (07/14/2017 4:46 AM EST) athologist Signature Potassium 4.3 3.5 - 5.0 [facility] mmol/L [facility] Comment: Please note: ??Patients with [...] Address City/State/ZIP Code Phon e Number [address] POCT Glucose (07/14/2017 4:34 AM EST) athologist Signature POC Glucose 115 65 - 199 [place] mg/dL [facility] Comment: Supplemental ranges: <140 mg/dL before meals <180 mg/dL all other times of the day Specimen Anatomical Collection Method Collection Time Receive d Time (Source) Location / / Volume Laterality Blood specimen 07/14/2017 4:34 AM 017 4:34 (specimen) EST AM EST Yuan Webber MD POINT OF CARE TEST ORDERABLE S Performing Organization Address City/State/ZIP Code Phon e Number [address] POCT Glucose (07/13/2017 11:33 PM EST) athologist Signature POC Glucose 132 65 - 199 [facility] mg/dL [facility] Comment: Supplemental ranges: <140 mg/dL before meals <180 mg/dL all other times of the day Specimen Anatomical Collection Method Collection Time Receive d Time (Source) Location / / Volume Laterality Blood specimen 07/13/2017 11:33 7 (specimen) PM EST 11:33 PM EST Yuan Webber MD POINT OF CARE TEST ORDERABLE S Performing Organization Address City/State/ZIP Code Phon e Number [address] POCT Glucose (07/13/2017 9:25 PM EST) athologist Signature POC Glucose 121 65 - 199 [facility] mg/dL [facility] Comment: Supplemental ranges: <140 mg/dL before meals <180 mg/dL all other times of the day Specimen Anatomical Collection Method Collection Time Receive d Time (Source) Location / / Volume Laterality Blood specimen 07/13/2017 9:25 PM 017 9:25 (specimen) EST PM EST Yuan Webber MD POINT OF CARE TEST ORDERABLE S Performing Organization Address City/State/[place] [address] POCT Glucose (07/13/2017 4:55 PM EST) athologist Signature POC Glucose 79 65 - 199 [place] mg/dL [facility] Comment: Supplemental ranges: <140 mg/dL before meals <180 mg/dL all other times of the day Specimen Anatomical Collection Method Collection Time Receive d Time (Source) Location / / Volume Laterality Blood specimen 07/13/2017 4:55 PM 017 4:55 (specimen) EST PM EST Yuan Webber MD POINT OF CARE TEST ORDERABLE S Performing Organization Address City/State/[place] [address] POCT Glucose (07/13/2017 11:16 AM EST) athologist Signature POC Glucose 163 65 - 199 [place] mg/dL [facility] Comment: Supplemental ranges: <140 mg/dL before meals <180 mg/dL all other times of the day Specimen Anatomical Collection Method Collection Time Receive d Time (Source) Location / / Volume Laterality Blood specimen 07/13/2017 11:16 7 (specimen) AM EST 11:16 AM EST Yuan Webber MD POINT OF CARE TEST ORDERABLE S Performing Organization Address City/State/[place] [address] POCT Glucose (07/13/2017 8:07 AM EST) athologist Signature POC Glucose 96 65 - 199 [facility] mg/dL [facility] Comment: Supplemental ranges: <140 mg/dL before meals <180 mg/dL all other times of the day Specimen Anatomical Collection Method Collection Time Receive d Time (Source) Location / / Volume Laterality Blood specimen 07/13/2017 8:07 AM 017 8:07 (specimen) EST AM EST Yuan Webbre MD POINT OF CARE TEST ORDERABLE S Performing Organization Address City/State/[place] [address] (ABNORMAL) Prothrombin Time (07/13/2017 [...] Organization Address City/State/[place] [address] (ABNORMAL) Basic Metabolic Panel (non-fasting) (07/13/2017 4:26 AM EST) P athologist Signature Glucose Lvl 95 65 - 199 [facility] mg/dL [facility] Comment: Diabetes: [...] or in patients with acute kidney failure. [email or web address]/DHnkdep [email or web address]/DHMCnkf Specimen Anatomical Collection Method Collection Time Receive d Time (Source) Location / / Volume Laterality Blood specimen 07/13/2017 4:26 AM 017 4:46 (specimen) EST AM EST Resulting Agency Comment Spec In Lab Makayla Wilson APRN CHEMISTRY ORDERABLES Performing Organization Address City/[facility] Code Phon e Number [address] POCT Glucose (07/13/2017 3:52 AM EST) athologist Signature POC Glucose 93 65 - 199 [facility] Comment: Supplemental ranges: [...] [facility]/ZIP Code Phon e Number [address] POCT Glucose (07/13/2017 12:21 AM EST) athologist Signature POC Glucose 80 65 - 199 [facility] Comment: Supplemental ranges: <140 mg/dL before meals <180 mg/dL all other times of the day Specimen Anatomical Collection Method Collection Time Receive d Time (Source) Location / / Volume Laterality Blood specimen 07/13/2017 12:21 7 (specimen) AM EST 12:21 AM EST Yuan Webber MD POINT OF CARE TEST ORDERABLE S Performing Organization Address City/State/[place] [address] POCT Glucose (07/12/2017 8:22 PM EST) athologist Signature POC Glucose 119 65 - 199 [place] mg/dL [facility] Comment: Supplemental ranges: <140 mg/dL before meals <180 mg/dL all other times of the day Specimen Anatomical Collection Method Collection Time Receive d Time (Source) Location / / Volume Laterality Blood specimen 07/12/2017 8:22 PM 017 8:22 (specimen) EST PM EST Yuan Webber MD POINT OF CARE TEST ORDERABLE S Performing Organization Address City/State/ZIP Code Phon e Number [address] POCT Glucose (07/12/2017 4:02 PM EST) athologist Signature POC Glucose 114 65 - 199 [place] mg/dL [facility] Comment: Supplemental ranges: <140 mg/dL before meals <180 mg/dL all other times of the day Specimen Anatomical Collection Method Collection Time Receive d Time (Source) Location / / Volume Laterality Blood specimen 07/12/2017 4:02 PM 017 4:02 (specimen) EST PM EST Yuan Webber MD POINT OF CARE TEST ORDERABLE S Performing Organization Address City/State/ZIP Code Phon e Number [address] POCT Glucose (07/12/2017 11:28 AM EST) athologist Signature POC Glucose 164 65 - 199 [place] mg/dL [facility] Comment: Supplemental ranges: [...] [facility]/[place] [address] POCT Glucose (07/12/2017 7:34 AM EST) P athologist Signature POC Glucose 109 65 - 199 [facility] Comment: Supplemental ranges: <140 mg/dL before meals <180 mg/dL all other times of the day Specimen Anatomical Collection Method Collection Time Receive d Time (Source) Location / / Volume Laterality Blood specimen 07/12/2017 7:34 AM 017 7:34 (specimen) EST AM EST Yuan Webber MD POINT OF CARE TEST ORDERABLE S Performing Organization Address City/State/[place] [address] (ABNORMAL) Basic Metabolic Panel (non-fasting) (07/12/2017 4:11 AM EST) P athologist Signature Glucose Lvl 92 65 - 199 [facility] Comment: Diabetes: >=200 [...] or in patients with acute kidney failure. [email or web address]/DHnkdep [email or web address]/DHMCnkf Specimen Anatomical Collection Method Collection Time Receive d Time (Source) Location / / Volume Laterality Blood specimen 07/12/2017 4:11 AM 017 8:57 (specimen) EST AM EST Resulting Agency Comment Spec [facility] CHEMISTRY ORDERABLES Performing Organization Address [facility] [place] [address] (ABNORMAL) Prothrombin Time (07/12/2017 [...] [place] STACIE HEMATOLOGY ORDERABLES Performing Organization Address City/[facility]/ZIP [place] [address] Potassium (07/12/2017 4:11 AM EST) athologist Signature Potassium 3.8 3.5 - 5.0 [facility] mmol/L [facility] Comment: Please note: ??Patients with [...] Address City/State/ZIP Code Phon e Number [address] POCT Glucose (07/12/2017 4:10 AM EST) athologist Signature POC Glucose 90 65 - 199 [facility] Comment: Supplemental ranges: <140 mg/dL before meals <180 mg/dL all other times of the day Specimen Anatomical Collection Method Collection Time Receive d Time (Source) Location / / Volume Laterality Blood specimen 07/12/2017 4:10 AM 017 4:10 (specimen) EST AM EST Yuan Webber MD POINT OF CARE TEST ORDERABLE S Performing Organization Address City/State/[place] [address] POCT Glucose (07/11/2017 11:57 PM EST) athologist Signature POC Glucose 98 65 - 199 [facility] Comment: Supplemental ranges: <140 mg/dL before meals <180 mg/dL all other times of the day Specimen Anatomical Collection Method Collection Time Receive d Time (Source) Location / / Volume Laterality Blood specimen 07/11/2017 11:57 7 (specimen) PM EST 11:57 PM EST Yuan Webber MD POINT OF CARE TEST ORDERABLE S Performing Organization Address City/State/ZIP Code Phon e Number [address] POCT Glucose (07/11/2017 8:32 PM EST) P athologist Signature POC Glucose 146 65 - 199 [place] mg/dL [facility] Comment: Supplemental ranges: <140 mg/dL before meals <180 mg/dL all other times of the day Specimen Anatomical Collection Method Collection Time Receive d Time (Source) Location / / Volume Laterality Blood specimen 07/11/2017 8:32 PM 017 8:32 (specimen) EST PM EST Yuan Webber MD POINT OF CARE TEST ORDERABLE S Performing Organization Address City/State/[place] [address] XR Chest PA & [...] e xtubated, left chest tube removed, and [place]-Suzi catheter removed since the study. Atelectasis at [...] e xtubated, left chest tube removed, and [place]-Suzi catheter removed since the study. Atelectasis at [...] - 199 [place] mg/dL [facility] Comment: Supplemental ranges: [...] [facility]/ZIP Code Phon e Number [address] POCT Glucose (07/11/2017 11:55 AM EST) athologist Signature POC Glucose 176 65 - 199 [place] mg/dL [facility] Comment: Supplemental ranges: [...] [facility]/[place] [address] POCT Glucose (07/11/2017 7:53 AM EST) athologist Signature POC Glucose 189 65 - 199 [place] mg/dL [facility] Comment: Supplemental ranges: [...] [facility]/[place] [address] POCT Glucose (07/11/2017 4:22 AM EST) athologist Signature POC Glucose 151 65 - 199 [facility] mg/dL [facility] Comment: Supplemental ranges: [...] [facility]/[place] [address] Potassium (07/11/2017 2:20 AM EST) athologist Signature Potassium 4.5 3.5 - 5.0 [facility] mmol/L [facility] Comment: Please note: ??Patients with [...] Webber MD CHEMISTRY ORDERABLES Performing Organization Address City/[facility]/ZIP Code Phon e Number [address] POCT Glucose (07/11/2017 12:17 AM EST) athologist Signature POC Glucose 162 65 - 199 [place] mg/dL [facility] Comment: Supplemental ranges: [...] Address City/State/ZIP Code Phon e Number [address] POCT Glucose (07/10/2017 8:47 PM EST) athologist Signature POC Glucose 191 65 - 199 [place] mg/dL [facility] Comment: Supplemental ranges: <140 mg/dL before meals <180 mg/dL all other times of the day Specimen Anatomical Collection Method Collection Time Receive d Time (Source) Location / / Volume Laterality Blood specimen 07/10/2017 8:47 PM 017 8:47 (specimen) EST PM EST Yuan Webber MD POINT OF CARE TEST ORDERABLE S Performing Organization Address City/State/ZIP Code Phon e Number [address] POCT Glucose (07/10/2017 4:06 PM EST) athologist Signature POC Glucose 131 65 - 199 [place] mg/dL [facility] Comment: Supplemental ranges: <140 mg/dL before meals <180 mg/dL all other times of the day Specimen Anatomical Collection Method Collection Time Receive d Time (Source) Location / / Volume Laterality Blood specimen 07/10/2017 4:06 PM 017 4:06 (specimen) EST PM EST Yuan Webber MD POINT OF CARE TEST ORDERABLE S Performing Organization Address City/State/ZIP Code Phon e Number [address] POCT Glucose (07/10/2017 3:08 PM EST) athologist Signature POC Glucose 151 65 - 199 [place] mg/dL [facility] Comment: Supplemental ranges: <140 mg/dL before meals <180 mg/dL all other times of the day Specimen Anatomical Collection Method Collection Time Receive d Time (Source) Location / / Volume Laterality Blood specimen 07/10/2017 3:08 PM 017 3:08 (specimen) EST PM EST Yuan Webber MD POINT OF CARE TEST ORDERABLE S Performing Organization Address City/State/ZIP Code Phon e Number [address] POCT Glucose (07/10/2017 2:25 PM EST) athologist Signature POC Glucose 146 65 - 199 [place] mg/dL [facility] Comment: Supplemental ranges: <140 mg/dL before meals <180 mg/dL all other times of the day Specimen Anatomical Collection Method Collection Time Receive d Time (Source) Location / / Volume Laterality Blood specimen 07/10/2017 2:25 PM 017 2:25 (specimen) EST PM EST Yuan Webber MD POINT OF CARE TEST ORDERABLE S Performing Organization Address City/State/ZIP Code Phon e Number [address] POCT Glucose (07/10/2017 1:23 PM EST) athologist Signature POC Glucose 166 65 - 199 [place] mg/dL [facility] Comment: Supplemental ranges: <140 mg/dL before meals <180 mg/dL all other times of the day Specimen Anatomical Collection Method Collection Time Receive d Time (Source) Location / / Volume Laterality Blood specimen 07/10/2017 1:23 PM 017 1:23 (specimen) EST PM EST Yuan Webber MD POINT OF CARE TEST ORDERABLE S Performing Organization Address City/State/ZIP Code Phon e Number [address] POCT Glucose (07/10/2017 11:52 AM EST) athologist Signature POC Glucose 157 65 - 199 [place] mg/dL [facility] Comment: Supplemental ranges: <140 mg/dL before meals <180 mg/dL all other times of the day Specimen Anatomical Collection Method Collection Time Receive d Time (Source) Location / / Volume Laterality Blood specimen 07/10/2017 11:52 7 (specimen) AM EST 11:52 AM EST Yuan Webber MD POINT OF CARE TEST ORDERABLE S Performing Organization Address City/State/[place] [address] POCT Glucose (07/10/2017 11:01 AM EST) P athologist Signature POC Glucose 158 65 - 199 [place] mg/dL [facility] Comment: Supplemental ranges: <140 mg/dL before meals <180 mg/dL all other times of the day Specimen Anatomical Collection Method Collection Time Receive d Time (Source) Location / / Volume Laterality Blood specimen 07/10/2017 11:01 7 (specimen) AM EST 11:01 AM EST Yuan Webber MD POINT OF CARE TEST ORDERABLE S Performing Organization Address City/State/ZIP Code Phon e Number [address] POCT Glucose (07/10/2017 9:54 AM EST) athologist Signature POC Glucose 160 65 - 199 [place] mg/dL [facility] Comment: Supplemental ranges: <140 mg/dL before meals <180 mg/dL all other times of the day Specimen Anatomical Collection Method Collection Time Receive d Time (Source) Location / / Volume Laterality Blood specimen 07/10/2017 9:54 AM 017 9:54 (specimen) EST AM EST Yuan Webber MD POINT OF CARE TEST ORDERABLE S Performing Organization Address City/State/ZIP Code Phon e Number [address] POCT Glucose (07/10/2017 8:58 AM EST) athologist Signature POC Glucose 183 65 - 199 [place] mg/dL [facility] Comment: Supplemental ranges: <140 mg/dL before meals <180 mg/dL all other times of the day Specimen Anatomical Collection Method Collection Time Receive d Time (Source) Location / / Volume Laterality Blood specimen 07/10/2017 8:58 AM 017 8:58 (specimen) EST AM EST Yuan Webber MD POINT OF CARE TEST ORDERABLE S Performing Organization Address City/State/ZIP Code Phon e Number [address] POCT Glucose (07/10/2017 8:01 AM EST) athologist Signature POC Glucose 173 65 - 199 [place] mg/dL [facility] Comment: Supplemental ranges: <140 mg/dL before meals <180 mg/dL all other times of the day Specimen Anatomical Collection Method Collection Time Receive d Time (Source) Location / / Volume Laterality Blood specimen 07/10/2017 8:01 AM 017 8:01 (specimen) EST AM EST Yuan Webber MD POINT OF CARE TEST ORDERABLE S Performing Organization Address City/State/ZIP Code Phon e Number [address] POCT Glucose (07/10/2017 7:05 AM EST) athologist Signature POC Glucose 166 65 - 199 [place] mg/dL [facility] Comment: Supplemental ranges: <140 mg/dL before meals <180 mg/dL all other times of the day Specimen Anatomical Collection Method Collection Time Receive d Time (Source) Location / / Volume Laterality Blood specimen 07/10/2017 7:05 AM 017 7:05 (specimen) EST AM EST Yuan Webber MD POINT OF CARE TEST ORDERABLE S Performing Organization Address City/State/[place] [address] POCT Glucose (07/10/2017 6:00 AM EST) athologist Signature POC Glucose 162 65 - 199 [place] mg/dL [facility] Comment: Supplemental ranges: <140 mg/dL before meals <180 mg/dL all other times of the day Specimen Anatomical Collection Method Collection Time Receive d Time (Source) Location / / Volume Laterality Blood specimen 07/10/2017 6:00 AM 017 6:00 (specimen) EST AM EST Yuan Webber MD POINT OF CARE TEST ORDERABLE S Performing Organization Address City/State/ZIP Code Phon e Number [facility] [place] [address] (ABNORMAL) Differential, Automated (07/10/2017 4:28 AM EST) [facility] gist Method Time Signature Neutrophils % 87.9 % [facility] Neutr Abs (ANC) 10.70 (H) 1.70 - [facility] 6.10 [facility] x10(3)/[facility] LABORATORY Lymphocytes % 3.9 % [facility] Lymphocytes Abs 0.5 (L) 0.9 - 3.2 [facility] x10(3)/[facility] LABORATORY Monocytes % 7.0 % [facility] Monocyte Abs 0.8 0.3 - 0.9 [facility] x10(3)/[facility] LABORATORY Eosinophils % 0.3 % [facility] Eosinophils Abs 0.0 0.0 - 0.4 [facility] x10(3)/[facility] LABORATORY Basophils % 0.2 % [facility] Basophils Abs 0.0 0.0 - 0.1 [facility] x10(3)/[facility] LABORATORY Immature Gran % 0.70 % [facility] [...] Gran Abs 0.08 (H) 0.00 - 0.04 x10(3)/[facility] LABORATORY Specimen Anatomical Collection Method Collection Time Receive d Time (Source) Location / / Volume Laterality Blood specimen 07/10/2017 4:28 AM 017 4:36 (specimen) EST AM EST Resulting Agency Comment Spec In Lab Yuan Webber MD HEMATOLOGY ORDERABLES Performing Organization Address City/State/ZIP Code Phon e Number [address] (ABNORMAL) Hemogram (07/10/2017 4:28 AM EST) Analysis Performed At Patho logist Time Signature WBC 12.2 (H) 4.0 - 9.5 [facility] x[facility](3[facility] LABORATORY RBC 3.31 (L) 4.58 - [place] 5.54 [facility] x10(6)/[facility] LABORATORY Hemoglobin 9.8 (L) 13.7 - [facility] 16.5 gm/dL [facility] Hematocrit 30.0 (L) 40.5 - [facility] 48.5 % [facility] MCV 90.6 82.9 - [facility] 93.1 [facility] LABORATORY MCH 29.6 27.5 - [place] 32.1 pg [facility] MCHC 32.7 32.0 - [place] 35.7 gm/dL [facility] Platelets 135 (L) 145 - 357 [facility] x10(3)/[facility] LABORATORY RDWSD 50.8 (H) 36.0 - [facility] 45.0 [facility] LABORATORY RDWCV 15.4 (H) 11.4 - [facility] 13.8 % [facility] MPV 10.0 7.6 - 12.9 [facility] LABORATORY nRBC % Auto 0.0 % [facility] LABORATORY nRBC Abs Auto 0.000 0.000 - [facility] SU 0.000 [facility] x10(3)/[facility] LABORATORY Specimen Anatomical Collection Method Collection Time Receive d Time (Source) Location / / Volume Laterality Blood specimen 07/10/2017 4:28 AM 017 4:36 (specimen) EST AM EST Resulting Agency Comment Spec In Lab Yuan Webber MD HEMATOLOGY ORDERABLES Performing Organization Address City/State/[place] [address] (ABNORMAL) Basic Metabolic Panel (non-fasting) (07/10/2017 4:28 AM EST) athologist Signature Glucose Lvl 178 65 - 199 [facility] mg/dL [facility] Comment: Diabetes: [...] or in patients with acute kidney failure. [email or web address] [email or web address] Specimen Anatomical Collection Method Collection Time Receive d Time (Source) Location / / Volume Laterality Blood specimen 07/10/2017 4:28 AM 017 4:36 (specimen) EST AM EST Resulting Agency Comment Spec In Lab Yuan Webber MD CHEMISTRY ORDERABLES Performing Organization Address City/State/[place] [address] POCT Glucose (07/10/2017 4:26 AM EST) athologist Signature POC Glucose 176 65 - 199 [place] mg/dL [facility] Comment: Supplemental ranges: <140 mg/dL before meals <180 mg/dL all other times of the day Specimen Anatomical Collection Method Collection Time Receive d Time (Source) Location / / Volume Laterality Blood specimen 07/10/2017 4:26 AM 017 4:26 (specimen) EST AM EST Yuan Webber MD POINT OF CARE TEST ORDERABLE S Performing Organization Address City/State/[place] [address] (ABNORMAL) POCT Glucose (07/10/2017 3:06 AM EST) athologist Signature POC Glucose 204 (H) 65 - 199 [place] mg/dL [facility] Comment: Supplemental ranges: <140 mg/dL before meals <180 mg/dL all other times of the day Specimen Anatomical Collection Method Collection Time Receive d Time (Source) Location / / Volume Laterality Blood specimen 07/10/2017 3:06 AM 017 3:06 (specimen) EST AM EST Yuan Webber MD POINT OF CARE TEST ORDERABLE S Performing Organization Address City/State/[place] [address] (ABNORMAL) POCT Glucose (07/10/2017 2:10 AM EST) athologist Signature POC Glucose 203 (H) 65 - 199 [place] mg/dL [facility] Comment: Supplemental ranges: <140 mg/dL before meals <180 mg/dL all other times of the day Specimen Anatomical Collection Method Collection Time Receive d Time (Source) Location / / Volume Laterality Blood specimen 07/10/2017 2:10 AM 017 2:10 (specimen) EST AM EST Yuan Webber MD POINT OF CARE TEST ORDERABLE S Performing Organization Address City/State/[place] [address] POCT Glucose (07/10/2017 1:09 AM EST) athologist Signature POC Glucose 196 65 - 199 [place] mg/dL [facility] Comment: Supplemental ranges: <140 mg/dL before meals <180 mg/dL all other times of the day Specimen Anatomical Collection Method Collection Time Receive d Time (Source) Location / / Volume Laterality Blood specimen 07/10/2017 1:09 AM 017 1:09 (specimen) EST AM EST Yuan Webber MD POINT OF CARE TEST ORDERABLE S Performing Organization Address City/State/ZIP Code Phon e Number [address] POCT Glucose (07/10/2017 12:10 AM EST) athologist Signature POC Glucose 173 65 - 199 [place] mg/dL [facility] Comment: Supplemental ranges: <140 mg/dL before meals <180 mg/dL all other times of the day Specimen Anatomical Collection Method Collection Time Receive d Time (Source) Location / / Volume Laterality Blood specimen 07/10/2017 12:10 7 (specimen) AM EST 12:10 AM EST Yuan Webber MD POINT OF CARE TEST ORDERABLE S Performing Organization Address City/State/ZIP Code Phon e Number [address] POCT Glucose (07/09/2017 11:01 PM EST) athologist Signature POC Glucose 140 65 - 199 [place] mg/dL [facility] Comment: Supplemental ranges: <140 mg/dL before meals <180 mg/dL all other times of the day Specimen Anatomical Collection Method Collection Time Receive d Time (Source) Location / / Volume Laterality Blood specimen 07/09/2017 11:01 7 (specimen) PM EST 11:01 PM EST Yuan Webber MD POINT OF CARE TEST ORDERABLE S Performing Organization Address City/State/ZIP Code Phon e Number [address] POCT Glucose (07/09/2017 10:05 PM EST) athologist Signature POC Glucose 144 65 - 199 [place] mg/dL [facility] Comment: Supplemental ranges: <140 mg/dL before meals <180 mg/dL all other times of the day Specimen Anatomical Collection Method Collection Time Receive d Time (Source) Location / / Volume Laterality Blood specimen 07/09/2017 10:05 7 (specimen) PM EST 10:05 PM EST Yuan Webber MD POINT OF CARE TEST ORDERABLE S Performing Organization Address City/State/[place] [address] POCT Glucose (07/09/2017 9:31 PM EST) athologist Signature POC Glucose 121 65 - 199 [place] mg/dL [facility] Comment: Supplemental ranges: <140 mg/dL before meals <180 mg/dL all other times of the day Specimen Anatomical Collection Method Collection Time Receive d Time (Source) Location / / Volume Laterality Blood specimen 07/09/2017 9:31 PM 017 9:31 (specimen) EST PM EST Yuan Webber MD POINT OF CARE TEST ORDERABLE S Performing Organization Address City/State/ZIP Code Phon e Number [address] POCT Glucose (07/09/2017 9:03 PM EST) athologist Signature POC Glucose 98 65 - 199 [place] mg/dL [facility] Comment: Supplemental ranges: <140 mg/dL before meals <180 mg/dL all other times of the day Specimen Anatomical Collection Method Collection Time Receive d Time (Source) Location / / Volume Laterality Blood specimen 07/09/2017 9:03 PM 017 9:03 (specimen) EST PM EST Yuan Webber MD POINT OF CARE TEST ORDERABLE S Performing Organization Address City/State/ZIP Code Phon e Number [address] POCT Glucose (07/09/2017 8:09 PM EST) athologist Signature POC Glucose 117 65 - 199 [place] mg/dL [facility] Comment: Supplemental ranges: <140 mg/dL before meals <180 mg/dL all other times of the day Specimen Anatomical Collection Method Collection Time Receive d Time (Source) Location / / Volume Laterality Blood specimen 07/09/2017 8:09 PM 017 8:09 (specimen) EST PM EST Yuan Webber MD POINT OF CARE TEST ORDERABLE S Performing Organization Address City/State/[place] [address] POCT Glucose (07/09/2017 5:40 PM EST) athologist Signature POC Glucose 155 65 - 199 [place] mg/dL [facility] Comment: Supplemental ranges: <140 mg/dL before meals <180 mg/dL all other times of the day Specimen Anatomical Collection Method Collection Time Receive d Time (Source) Location / / Volume Laterality Blood specimen 07/09/2017 5:40 PM 017 5:40 (specimen) EST PM EST Yuan Webber MD POINT OF CARE TEST ORDERABLE S Performing Organization Address City/State/[place] [address] POCT Glucose (07/09/2017 4:24 PM EST) athologist Signature POC Glucose 164 65 - 199 [facility] mg/dL [facility] Comment: Supplemental ranges: <140 mg/dL before meals <180 mg/dL all other times of the day Specimen Anatomical Collection Method Collection Time Receive d Time (Source) Location / / Volume Laterality Blood specimen 07/09/2017 4:24 PM 017 4:24 (specimen) EST PM EST Yuan Webber MD POINT OF CARE TEST ORDERABLE S Performing Organization Address City/State/[place] [address] POCT Glucose (07/09/2017 3:19 PM EST) athologist Signature POC Glucose 166 65 - 199 [place] mg/dL [facility] Comment: Supplemental ranges: <140 mg/dL before meals <180 mg/dL all other times of the day Specimen Anatomical Collection Method Collection Time Receive d Time (Source) Location / / Volume Laterality Blood specimen 07/09/2017 3:19 PM 017 3:19 (specimen) EST PM EST Yuan Webber MD POINT OF CARE TEST ORDERABLE S Performing Organization Address City/State/[place] [address] POCT Glucose (07/09/2017 2:26 PM EST) athologist Signature POC Glucose 179 65 - 199 [place] mg/dL [facility] Comment: Supplemental ranges: <140 mg/dL before meals <180 mg/dL all other times of the day Specimen Anatomical Collection Method Collection Time Receive d Time (Source) Location / / Volume Laterality Blood specimen 07/09/2017 2:26 PM 017 2:26 (specimen) EST PM EST Yuan Webber MD POINT OF CARE TEST ORDERABLE S Performing Organization Address City/State/[place] [address] (ABNORMAL) POCT Glucose (07/09/2017 1:29 PM EST) athologist Signature POC Glucose 210 (H) 65 - 199 [place] mg/dL [facility] Comment: Supplemental ranges: <140 mg/dL before meals <180 mg/dL all other times of the day Specimen Anatomical Collection Method Collection Time Receive d Time (Source) Location / / Volume Laterality Blood specimen 07/09/2017 1:29 PM 017 1:29 (specimen) EST PM EST Yuan Webber MD POINT OF CARE TEST ORDERABLE S Performing Organization Address City/State/ZIP Code Phon e Number [address] POCT Glucose (07/09/2017 12:20 PM EST) athologist Signature POC Glucose 172 65 - 199 [place] mg/dL [facility] Comment: Supplemental ranges: <140 mg/dL before meals <180 mg/dL all other times of the day Specimen Anatomical Collection Method Collection Time Receive d Time (Source) Location / / Volume Laterality Blood specimen 07/09/2017 12:20 7 (specimen) PM EST 12:20 PM EST Yuan Webber MD POINT OF CARE TEST ORDERABLE S Performing Organization Address City/State/ZIP Code Phon e Number [address] POCT Glucose (07/09/2017 11:24 AM EST) P athologist Signature POC Glucose 156 65 - 199 [place] mg/dL [facility] Comment: Supplemental ranges: <140 mg/dL before meals <180 mg/dL all other times of the day Specimen Anatomical Collection Method Collection Time Receive d Time (Source) Location / / Volume Laterality Blood specimen 07/09/2017 11:24 7 (specimen) AM EST 11:24 AM EST Yuan Webber MD POINT OF CARE TEST ORDERABLE S Performing Organization Address City/State/ZIP Code Phon e Number [address] POCT Glucose (07/09/2017 11:11 AM EST) P athologist Signature POC Glucose 172 65 - 199 [facility] mg/dL [facility] Comment: Supplemental ranges: <140 mg/dL before meals <180 mg/dL all other times of the day Specimen Anatomical Collection Method Collection Time Receive d Time (Source) Location / / Volume Laterality Blood specimen 07/09/2017 11:11 7 (specimen) AM EST 11:11 AM EST Yuan Webber MD POINT OF CARE TEST ORDERABLE S Performing Organization Address City/State/[place] [address] POCT Glucose (07/09/2017 10:08 AM EST) P athologist Signature POC Glucose 176 65 - 199 [facility] mg/dL [facility] Comment: Supplemental ranges: <140 mg/dL before meals <180 mg/dL all other times of the day Specimen Anatomical Collection Method Collection Time Receive d Time (Source) Location / / Volume Laterality Blood specimen 07/09/2017 10:08 7 (specimen) AM EST 10:08 AM EST Yuan Webber MD POINT OF CARE TEST ORDERABLE S Performing Organization Address City/State/[place] [address] POCT Glucose (07/09/2017 8:02 AM EST) P athologist Signature POC Glucose 178 65 - 199 [facility] mg/dL [facility] Comment: Supplemental ranges: <140 mg/dL before meals <180 mg/dL all other times of the day Specimen Anatomical Collection Method Collection Time Receive d Time (Source) Location / / Volume Laterality Blood specimen 07/09/2017 8:02 AM 017 8:02 (specimen) EST AM EST Yuan Webber MD POINT OF CARE TEST ORDERABLE S Performing Organization Address City/State/[place] [address] (ABNORMAL) BLOOD GAS 2 ARTERIAL (07/09/2017 5:37 AM EST) Analysis Performed At Patho logist Time Signature pH Art 7.36 7.35 - [facility] 7.45 [facility] pCO2 Art 38 35 - 45 [facility] LABORATORY pO2 Art 79 (L) 85 - 104 [facility] LABORATORY HCO3 Art 20.9 20.0 - [facility] 26.0 [facility] mmol/L [facility] LABORATORY BE Art -4.6 (L) -3.0 - 3.0 [facility] mmol/L [facility] Hgb Blood Gas 10.5 (L) 13.7 - [facility] 16.5 gm/dL [facility] O2HB Art 93.8 (L) 94.0 - [facility] 97.0 % [facility] COHB Art 0.3 % [facility] [...] Whole Bld 175 65 - 199 mg/dL [facility] LABORATORY Comment: Diabetes: >=200 mg/dL plus symp toms. Lactate WB 1.0 0.5 - 2.2 mmol/L [facility] LAB[facility] FIO2 Art 40 % [facility] LABORATORY PF Ratio Art 198 [facility] LABORATORY Specimen Anatomical Collection Method Collection Time Receive d Time (Source) Location / / Volume Laterality Blood specimen 07/09/2017 5:37 AM 017 5:37 (specimen) EST AM EST Yuan Webber MD CHEMISTRY ORDERABLES Performing Organization Address City/[facility]/[place] [address] POCT Glucose (07/09/2017 3:27 AM EST) P athologist Signature POC Glucose 192 65 - 199 [facility] mg/dL [facility] Comment: Supplemental ranges: [...] [facility]/[place] [address] (ABNORMAL) Basic Metabolic Panel (non-fasting) (07/09/2017 2:30 AM EST) athologist Signature Glucose Lvl 179 65 - 199 [facility] mg/dL [facility] Comment: Diabetes: [...] or in patients with acute kidney failure. [email or web address] Specimen Anatomical Collection Method Collection Time Receive d Time (Source) Location / / Volume Laterality Blood specimen Venous Draw / 07/09/2017 2:30 AM 2016 2:42 (specimen) Unknown EST AM EST Resulting Agency Comment Spec In Lab Yuan Webber MD CHEMISTRY ORDERABLES Performing Organization Address City/State/[place] [address] (ABNORMAL) Potassium (07/09/2017 2:30 AM EST) P athologist Signature Potassium 5.1 (H) 3.5 - 5.0 [place] mmol/L [facility] Comment: Please note: ??Patients with [...] Organization Address City/State/[place] [address] (ABNORMAL) Hemogram (07/09/2017 2:30 AM EST) Analysis Performed At Patho logist Time Signature WBC 12.5 (H) 4.0 - 9.5 [place] x10(3)/[facility] LABORATORY RBC 3.38 (L) 4.58 - [place] 5.54 [facility] x10(6)/[facility] LABORATORY Hemoglobin 10.1 (L) 13.7 - [place] 16.5 gm/dL [facility] Hematocrit 30.3 (L) 40.5 - [place] 48.5 % [facility] MCV 89.6 82.9 - [place] 93.1 [facility] LABORATORY MCH 29.9 27.5 - [place] 32.1 pg [facility] MCHC 33.3 32.0 - [place] 35.7 gm/dL [facility] Platelets 127 (L) 145 - 357 [place] x10(3)/[facility] LABORATORY RDWSD 49.3 (H) 36.0 - [place] 45.0 [facility] LABORATORY RDWCV 15.2 (H) 11.4 - [facility] 13.8 % [facility] MPV 9.9 7.6 - 12.9 [place] [facility] LABORATORY nRBC % Auto 0.0 % [facility] LABORATORY nRBC Abs Auto 0.000 0.000 - [place] DAV[place] 0.000 [facility] x10(3)/[facility] LABORATORY Specimen Anatomical Collection Method Collection Time Receive d Time (Source) Location / / Volume Laterality Blood specimen 07/09/2017 2:30 AM 017 2:41 (specimen) EST AM EST Resulting Agency Comment Spec In Lab Yuan Webber MD HEMATOLOGY ORDERABLES Performing Organization Address City/State/ZIP Code Phon e Number [address] POCT Glucose (07/09/2017 2:10 AM EST) P athologist Signature POC Glucose 169 65 - 199 [place] mg/dL [facility] Comment: Supplemental ranges: [...] [facility]/ZIP Code Phon e Number [address] POCT Glucose (07/09/2017 1:01 AM EST) P athologist Signature POC Glucose 173 65 - 199 [place] mg/dL [facility] Comment: Supplemental ranges: [...] [facility]/ZIP Code Phon e Number [address] Blood culture (07/09/2017 12:40 AM EST) [facility] Method Time Signature Blood Culture No growth [place] DAVIS at 5 days. [facility] Specimen Anatomical Collection Method Collection Time Receive d Time (Source) Location / / Volume Laterality Blood specimen STRUCTURE OF RIGHT 07/09/2017 12:40 3:58 (specimen) UPPER LIMB / AM EST AM EST Unknown Resulting Agency Comment Spec In Lab Yuan Webber MD MICROBIOLOGY - BLOOD ORDERAB LES Performing Organization Address City/State/[place] [address] Blood culture (07/09/2017 12:30 AM EST) Patholo gist Method Time Signature Blood Culture No growth [place] DAVIS at 5 days. [facility] Specimen Anatomical Collection Method Collection Time Receive d Time (Source) Location / / Volume Laterality Blood specimen STRUCTURE OF LEFT 07/09/2017 12:30 06/25 3:59 (specimen) UPPER LIMB / AM EST AM EST Unknown Resulting Agency Comment Spec In Lab Yuan Webber MD MICROBIOLOGY - BLOOD ORDERAB LES Performing Organization Address City/[facility]/[place] [address] (ABNORMAL) Urinalysis Microscopic Exam (07/09/2017 12:05 AM EST) Analysis Performed At Patho logist Time Signature RBC UA 32 (H) 0 - 3 /HPF [facility] WBC UA 5 (H) 0 - 3 /HPF [facility] Squam Epith UA <1 <=4 /HPF [facility] Hyaline Cast 17 (H) 0 - 2 /LPF [facility] LABORATORY Gran Cast UA 1 (H) <=0 /LPF [facility] Uric Ac Bianca Rare (A) None /HPF [facility] LABORATORY Specimen (Source) Anatomical Collection Method Collection Time Re ceived Time Location / / Volume Laterality Urine specimen 07/09/2017 12:05 7 obtained via AM EST 12:39 AM EST indwelling urinary catheter (specimen) Resulting Agency Comment Spec In Lab Yuan Webber MD URINE ORDERABLES Performing Organization Address City/State/[place] [address] (ABNORMAL) Urinalysis with reflex Culture (07/09/2017 12:05 AM EST) Patholo gist Method Time Signature Glucose UA Negative Negative [facility] mg/dL [facility] Protein UA 30 (A) Negative [facility] mg/dL [facility] Bilirubin UA Negative Negative [facility] mg/dL [facility] Comment: Clinical correlation required for [...] [facility] Nitrite UA Negative Negative [facility] Leukocytes UA Negative Negative mcL [facility] LABORATORY Appearance UA Hazy (A) Clear [facility] LABORATORY Spec [place] UA 1.025 1.002 - 1.030 [facility] LABORATORY Color UA Yellow Yellow [facility] Culture Reflexed No [facility] LABORATORY Specimen (Source) Anatomical Collection Method Collection Time Re ceived Time Location / / Volume Laterality Urine specimen 07/09/2017 12:05 7 obtained via AM EST 12:39 AM EST indwelling urinary catheter (specimen) Resulting Agency Comment Spec In Lab Yuan Webber MD URINE ORDERABLES Performing Organization Address City/State/ZIP Code Phon e Number [place] [id number] [address] POCT Glucose (07/08/2017 11:01 PM EST) P athologist Signature POC Glucose 191 65 - 199 [facility] mg/dL [facility] Comment: Supplemental ranges: <140 mg/dL before meals <180 mg/dL all other times of the day Specimen Anatomical Collection Method Collection Time Receive d Time (Source) Location / / Volume Laterality Blood specimen 07/08/2017 11:01 7 (specimen) PM EST 11:01 PM EST Yuan Webber MD POINT OF CARE TEST ORDERABLE S Performing Organization Address City/State/[place] [address] POCT Glucose (07/08/2017 10:04 PM EST) P athologist Signature POC Glucose 198 65 - 199 [facility] mg/dL [facility] Comment: Supplemental ranges: [...] [facility]/[place] [address] Prepare Albumin 5% in [...] Organization Address City/State/[place] [address] POCT Glucose (07/08/2017 8:28 PM EST) P athologist Signature POC Glucose 195 65 - 199 [facility] Comment: Supplemental ranges: <140 mg/dL before meals <180 mg/dL all other times of the day Specimen Anatomical Collection Method Collection Time Receive d Time (Source) Location / / Volume Laterality Blood specimen 07/08/2017 8:28 PM 017 8:28 (specimen) EST PM EST Yuan Webber MD POINT OF CARE TEST ORDERABLE S Performing Organization Address City/State/[place] [address] (ABNORMAL) POCT Glucose (07/08/2017 7:13 PM EST) P athologist Signature POC Glucose 220 (H) 65 - 199 [facility]dL [facility] Comment: Supplemental ranges: <140 mg/dL before meals <180 mg/dL all other times of the day Specimen Anatomical Collection Method Collection Time Receive d Time (Source) Location / / Volume Laterality Blood specimen 07/08/2017 7:13 PM 017 7:13 (specimen) EST PM EST Yuan Webber MD POINT OF CARE TEST ORDERABLE S Performing Organization Address City/State/[place] [address] POCT Glucose (07/08/2017 5:04 PM EST) athologist Signature POC Glucose 147 65 - 199 [facility] LABORATORY Comment: Supplemental ranges: <140 mg/dL before meals <180 mg/dL all other times of the day Specimen Anatomical Collection Method Collection Time Receive d Time (Source) Location / / Volume Laterality Blood specimen 07/08/2017 5:04 PM 017 5:04 (specimen) EST PM EST Yuan Webber MD POINT OF CARE TEST ORDERABLE S Performing Organization Address City/State/[place] [address] (ABNORMAL) BLOOD GAS 2 ARTERIAL (07/08/2017 4:13 PM EST) Analysis Performed At Patho logist Time Signature pH Art 7.38 7.35 - [facility] 7.45 [facility] pCO2 Art 36 35 - 45 [facility] LABORATORY pO2 Art 91 85 - 104 [facility] LABORATORY HCO3 Art 20.9 20.0 - [facility] 26.0 [facility] mmol/L [facility] BE Art -4.2 (L) -3.0 - 3.0 [facility] mmol/L [facility] Hgb Blood Gas 11.7 (L) 13.7 - [facility] 16.5 gm/dL [facility] O2HB Art 95.1 94.0 - [facility] 97.0 % [facility] COHB Art 0.6 % [facility] [...] Whole Bld 155 65 - 199 mg/dL [facility] Comment: Diabetes: >=200 mg/dL plus symp toms. Lactate WB 1.4 0.5 - 2.2 mmol/L [facility] FIO2 Art 40 % [facility] PF Ratio Art 228 [facility] LABORATORY Specimen Anatomical Collection Method Collection Time Receive d Time (Source) Location / / Volume Laterality Blood specimen 07/08/2017 4:13 PM 017 4:13 (specimen) EST PM EST Yuan Webber MD CHEMISTRY ORDERABLES Performing Organization Address City/State/[place] [address] POCT Glucose (07/08/2017 4:01 PM EST) athologist Signature POC Glucose 148 65 - 199 [facility] mg/dL [facility] Comment: Supplemental ranges: <140 mg/dL before meals <180 mg/dL all other times of the day Specimen Anatomical Collection Method Collection Time Receive d Time (Source) Location / / Volume Laterality Blood specimen 07/08/2017 4:01 PM 017 4:01 (specimen) EST PM EST Yuan Webber MD POINT OF CARE TEST ORDERABLE S Performing Organization Address City/State/ZIP Code Phon e Number [address] POCT Glucose (07/08/2017 3:21 PM EST) athologist Signature POC Glucose 118 65 - 199 [place] mg/dL [facility] Comment: Supplemental ranges: <140 mg/dL before meals <180 mg/dL all other times of the day Specimen Anatomical Collection Method Collection Time Receive d Time (Source) Location / / Volume Laterality Blood specimen 07/08/2017 3:21 PM 017 3:21 (specimen) EST PM EST Yuan Webber MD POINT OF CARE TEST ORDERABLE S Performing Organization Address City/State/ZIP Code Phon e Number [address] POCT Glucose (07/08/2017 2:01 PM EST) athologist Signature POC Glucose 129 65 - 199 [place] mg/dL [facility] Comment: Supplemental ranges: <140 mg/dL before meals <180 mg/dL all other times of the day Specimen Anatomical Collection Method Collection Time Receive d Time (Source) Location / / Volume Laterality Blood specimen 07/08/2017 2:01 PM 017 2:01 (specimen) EST PM EST Yuan Webber MD POINT OF CARE TEST ORDERABLE S Performing Organization Address City/State/ZIP Code Phon e Number [address] POCT Glucose (07/08/2017 11:53 AM EST) athologist Signature POC Glucose 156 65 - 199 [facility] Comment: Supplemental ranges: <140 mg/dL before meals <180 mg/dL all other times of the day Specimen Anatomical Collection Method Collection Time Receive d Time (Source) Location / / Volume Laterality Blood specimen 07/08/2017 11:53 7 (specimen) AM EST 11:53 AM EST Yuan Webber MD POINT OF CARE TEST ORDERABLE S Performing Organization Address City/State/[place] [address] POCT Glucose (07/08/2017 11:04 AM EST) athologist Signature POC Glucose 181 65 - 199 [facility] mg[facility]dL [facility] Comment: Supplemental ranges: [...] [facility]/[place] [address] (ABNORMAL) POCT Glucose (07/08/2017 9:24 AM EST) athologist Signature POC Glucose 203 (H) 65 - 199 [facility] mg/dL [facility] Comment: Supplemental ranges: <140 mg/dL before meals <180 mg/dL all other times of the day Specimen Anatomical Collection Method Collection Time Receive d Time (Source) Location / / Volume Laterality Blood specimen 07/08/2017 9:24 AM 017 9:24 (specimen) EST AM EST Yuan Webber MD POINT OF CARE TEST ORDERABLE S Performing Organization Address City/State/ZIP Code Phon e Number [address] APTT (07/08/2017 8:40 AM EST) athologist Signature PTT 33 25 - 35 sec [facility] Comment: The recommended therapeutic range for fu ll dose, unfractionated [place] [facility] [place] [...] Webber MD HEMATOLOGY ORDERABLES Performing Organization Address [facility] [place] [address] (ABNORMAL) Prothrombin Time (07/08/2017 [...] Webber MD HEMATOLOGY ORDERABLES Performing Organization Address City/[facility] [place] [address] (ABNORMAL) POCT Glucose (07/08/2017 7:38 AM EST) P athologist Signature POC Glucose 232 (H) 65 - 199 [facility] mg/dL [facility] Comment: Supplemental ranges: <140 mg/dL before meals <180 mg/dL all other times of the day Specimen Anatomical Collection Method Collection Time Receive d Time (Source) Location / / Volume Laterality Blood specimen 07/08/2017 7:38 AM 017 7:38 (specimen) EST AM EST Yuan Webber MD POINT OF CARE TEST ORDERABLE S Performing Organization Address City/State/[place] [address] (ABNORMAL) POCT Glucose (07/08/2017 7:07 AM EST) athologist Signature POC Glucose 234 (H) 65 - 199 [place] mg/dL [facility] Comment: Supplemental ranges: [...] [facility]/[place] [address] (ABNORMAL) POCT Glucose (07/08/2017 6:04 AM EST) athologist Signature POC Glucose 225 (H) 65 - 199 [place] mg/dL [facility] Comment: Supplemental ranges: [...] [facility]/[place] [address] (ABNORMAL) POCT Glucose (07/08/2017 5:31 AM EST) athologist Signature POC Glucose 216 (H) 65 - 199 [facility] mg/dL [facility] Comment: Supplemental ranges: <140 mg/dL before meals <180 mg/dL all other times of the day Specimen Anatomical Collection Method Collection Time Receive d Time (Source) Location / / Volume Laterality Blood specimen 07/08/2017 5:31 AM 017 5:31 (specimen) EST AM EST Yuan Webber MD POINT OF CARE TEST ORDERABLE S Performing Organization Address City/State/[place] [address] (ABNORMAL) POCT Glucose (07/08/2017 4:52 AM EST) P athologist Signature POC Glucose 257 (H) 65 - 199 [facility] mg/dL [facility] Comment: Supplemental ranges: <140 mg/dL before meals <180 mg/dL all other times of the day Specimen Anatomical Collection Method Collection Time Receive d Time (Source) Location / / Volume Laterality Blood specimen 07/08/2017 4:52 AM 017 4:52 (specimen) EST AM EST Daphne Shahid MD POINT OF CARE TEST ORDERABLE S Performing Organization Address City/State/[place] [address] (ABNORMAL) BLOOD GAS 2 ARTERIAL (07/08/2017 4:04 AM EST) Analysis Performed At Patho logist Time Signature pH Art 7.30 (L) 7.35 - [facility] 7.45 [facility] pCO2 Art 41 35 - 45 [facility] mmHg [facility] pO2 Art 83 (L) 85 - 104 [facility] LABORATORY HCO3 Art 19.6 (L) 20.0 - [facility] 26.0 [facility] mmol/L [facility] LABOR[facility] BE Art -6.8 (L) -3.0 - 3.0 [facility] mmol/L [facility] Hgb Blood Gas 12.2 (L) 13.7 - [facility] 16.5 gm/dL [facility] O2HB Art 93.5 (L) 94.0 - [facility] 97.0 % [facility] COHB Art 0.4 % [facility] [...] Bld 274 (H) 65 - 199 mg/dL [facility] Comment: Diabetes: >=200 mg/dL plus symp toms. Lactate WB 4.4 (Critical) 0.5 - 2.2 mmol/L [facility] Comment: Noted by brass and wind instrument repairer. FIO2 Art 40 % [facility] PF Ratio Art 208 [facility] LABORATORY Specimen Anatomical Collection Method Collection Time Receive d Time (Source) Location / / Volume Laterality Blood specimen 07/08/2017 4:04 AM 017 4:04 (specimen) EST AM EST Daphne Shahid MD CHEMISTRY ORDERABLES Performing Organization Address City/[facility]/[place] [address] Scan, Peripheral Blood (07/08/2017 [...] Webber MD HEMATOLOGY ORDERABLES Performing Organization Address City/[facility]/[place] [address] (ABNORMAL) Differential, Automated (07/08/2017 4:00 AM EST) Patholo gist Method Time Signature Neutrophils % 85.4 % [facility] Neutr Abs (ANC) 16.07 (H) 1.70 - [facility] 6.10 [facility] x10(3)/[facility] L LABORATORY Lymphocytes % 3.5 % [facility] Lymphocytes Abs 0.6 (L) 0.9 - 3.2 [facility] x10(3)/[facility] LABORATORY Monocytes % 10.4 % [facility] Monocyte Abs 2.0 (H) 0.3 - 0.9 [facility] x10(3)/[facility] LABORATORY Eosinophils % 0.0 % [facility] Eosinophils Abs 0.0 0.0 - 0.4 [facility] x10(3)/[facility] LABORATORY Basophils % 0.1 % [facility] Basophils Abs 0.0 0.0 - 0.1 [facility] x10(3)/[facility] LABORATORY Immature Gran % 0.60 % [facility] [...] Gran Abs 0.12 (H) 0.00 - 0.04 x10(3)/[facility] LABORATORY Specimen Anatomical Collection Method Collection Time Receive d Time (Source) Location / / Volume Laterality Blood specimen 07/08/2017 4:00 AM 017 4:09 (specimen) EST AM EST Resulting Agency Comment Spec In Lab Yuan Webber MD HEMATOLOGY ORDERABLES Performing Organization Address City/State/[place] [address] (ABNORMAL) Hemogram (07/08/2017 4:00 AM EST) Analysis Performed At Patho logist Time Signature WBC 18.8 (H) 4.0 - 9.5 [facility] x10(3)/[facility] LABORATORY RBC 4.00 (L) 4.58 - [place] [facility] 5.54 [facility] x10(6)/[facility] LABORATORY Hemoglobin 11.9 (L) 13.7 - [place] 16.5 gm/dL [facility] Hematocrit 35.9 (L) 40.5 - [place] 48.5 % [facility] MCV 89.8 82.9 - [facility] 93.1 [facility] LABORATORY MCH 29.8 27.5 - [place] 32.1 pg [facility] MCHC 33.1 32.0 - [place] 35.7 gm/dL [facility] Platelets 232 145 - 357 [facility] x10(3)/[facility] LABORATORY RDWSD 47.6 (H) 36.0 - [place] 45.0 [facility] LABORATORY RDWCV 14.5 (H) 11.4 - [facility] 13.8 % [facility] MPV 9.5 7.6 - 12.9 [place] [facility] LABORATORY nRBC % Auto 0.0 % [facility] nRBC Abs Auto 0.000 0.000 - [place] 0.000 [facility] x10(3)/[facility] LABORATORY Specimen Anatomical Collection Method Collection Time Receive d Time (Source) Location / / Volume Laterality Blood specimen 07/08/2017 4:00 AM 017 4:09 (specimen) EST AM EST Resulting Agency Comment Spec In Lab Yuan Webber MD HEMATOLOGY ORDERABLES Performing Organization Address City/State/[place] [address] (ABNORMAL) Electrolytes panel (07/08/2017 4:00 AM EST) P athologist Signature Sodium 139 135 - 145 [facility] mmol/L [facility] Potassium 4.7 3.5 - 5.0 [facility] mmol/L [facility] Comment: result rechecked-JLK Please note: [...] Organization Address City/State/[place] [address] (ABNORMAL) Cardiac Enzymes (LEB/CGP) (07/08/2017 4:00 AM EST) P athologist Signature Troponin-T 1.88 (H) 0.00 - [facility] 0.00 ng/mL [facility] Comment: The 99th percentile for Troponin T is le ss than 0.01 ng/mL, any detectable cTnT concentration using this assay should be considered elevated. According to the third universal definit ion of myocardial infarction the following criteria with a clinical prese ntation consistent with acute myocardial ischemia meets the diagnosis for a myocardial infarction (UT). Detection of a rise and/or fall of [...] additional sample may be indicated. Reference: Third Dovray Definition of Myocardial Infarction. Journal of the [employer] 2012;60:1581-98 CK, Total 413 (H) 0 - 200 unit/L [facility] Comment: result rechecked-JLK Specimen Anatomical Collection Method Collection Time Receive d Time (Source) Location / / Volume Laterality Blood specimen 07/08/2017 4:00 AM 017 4:09 (specimen) EST AM EST Resulting Agency Comment Spec In Lab Yuan Webber MD CHEMISTRY ORDERABLES Performing Organization Address City/[facility]/ZIP Code Phon e Number [address] (ABNORMAL) Glucose, fasting (07/08/2017 4:00 AM EST) P athologist Signature Glucose 287 (H) 65 - 99 [facility] Fasting mg/dL [facility] Comment: ?Fasting* Glucose Interpretive C [...] of Diabetes Mellitus, Position Statement from the [employer]. ??Diabete s Care, Volume 33, Supplement 1, Jul 2009 Specimen Anatomical Collection Method Collection Time Receive d Time (Source) Location / / Volume Laterality Blood specimen 07/08/2017 4:00 AM 017 4:09 (specimen) EST AM EST Resulting Agency Comment Spec In Lab Yuan Webber MD CHEMISTRY ORDERABLES Performing Organization Address City/[facility]/ZIP Code Phon e Number [address] (ABNORMAL) Creatinine (07/08/2017 4:00 AM EST) Analysis Performed At Patho logist Time Signature Creatinine 1.55 (H) 0.80 - [facility] 1.50 mg/dL [facility] Estimated GFR 44 (L) >=60 [facility] Comment: The reported eGFR should be multiplied b y 1.2 for patients. The MDRD is not an appropriate measure o f renal function for patients with body mass extremes or in patients with acute kidney failure. http://FitBionic/DHnkdep http://FitBionic/DHMCnkf Specimen Anatomical Collection Method Collection Time Receive d Time (Source) Location / / Volume Laterality Blood specimen 07/08/2017 4:00 AM 017 4:09 (specimen) EST AM EST Resulting Agency Comment Spec In Lab Yuan Webber MD CHEMISTRY ORDERABLES Performing Organization Address City/[facility]/ZIP [facility] Phon e Number [address] BUN (07/08/2017 4:00 AM EST) athologist Signature BUN 16 10 - 20 [facility] Specimen Anatomical Collection Method Collection Time Receive d Time (Source) Location / / Volume Laterality Blood specimen 07/08/2017 4:00 AM 017 4:09 (specimen) EST AM EST Resulting Agency Comment Spec In Lab Yuan Webber MD CHEMISTRY ORDERABLES Performing Organization Address City/[facility] [place] [address] (ABNORMAL) POCT Glucose (07/08/2017 3:00 AM EST) athologist Signature POC Glucose 273 (H) 65 - 199 [facility] mg/dL [facility] Comment: Supplemental ranges: [...] [facility]/[place] [address] (ABNORMAL) POCT Glucose (07/08/2017 1:57 AM EST) athologist Signature POC Glucose 288 (H) 65 - 199 [facility] Comment: Supplemental ranges: [...] [facility]/[place] [address] (ABNORMAL) POCT Glucose (07/08/2017 1:01 AM EST) athologist Signature POC Glucose 315 (H) 65 - 199 [facility] mg/dL [facility] Comment: Supplemental ranges: [...] [facility]/[place] [address] (ABNORMAL) BLOOD GAS 2 ARTERIAL (07/08/2017 12:09 AM EST) athologist Signature pH Art 7.26 7.35 - [facility] (Critical) 7.45 [facility] Comment: Noted by brass and wind [...] Gas 12.4 (L) 13.7 - 16.5 gm/dL [facility] O2HB Art 94.7 94.0 - 97.0 % [facility] COHB Art 0.2 % [facility] [...] Bld 315 (H) 65 - 199 mg/dL [facility] Comment: Diabetes: >=200 mg/dL plus symp toms. Lactate WB 7.6 (Critical) 0.5 - 2.2 mmol/L [facility] Comment: Noted by brass and wind instrument repairer. FIO2 Art 40 % [facility] PF Ratio Art 240 [facility]ORY Specimen Anatomical Collection Method Collection Time Receive d Time (Source) Location / / Volume Laterality Blood specimen Arterial Draw / 07/08/2017 12:09 2016 5:31 (specimen) Unknown AM EST AM EST Resulting Agency Comment Spec In Lab Samy Maldonado MD CHEMISTRY ORDERABLES Performing Organization Address City/State/[place] [address] (ABNORMAL) POCT Glucose (07/07/2017 10:56 PM EST) P athologist Signature POC Glucose 292 (H) 65 - 199 [facility] mg/dL [facility] Comment: Supplemental ranges: <140 mg/dL before meals <180 mg/dL all other times of the day Specimen Anatomical Collection Method Collection Time Receive d Time (Source) Location / / Volume Laterality Blood specimen 07/07/2017 10:56 7 (specimen) PM EST 10:56 PM EST Daphne Shahid MD POINT OF CARE TEST ORDERABLE S Performing Organization Address City/State/[place] [address] (ABNORMAL) BLOOD GAS 2 ARTERIAL (07/07/2017 10:04 PM EST) athologist Signature pH Art 7.22 7.35 - [facility] (Critical) 7.45 [facility] Comment: Noted by brass and wind [...] Gas 13.0 (L) 13.7 - 16.5 gm/dL [facility] O2HB Art 93.8 (L) 94.0 - 97.0 % [facility] COHB Art 0.7 % [facility] Comment: Nonsmokers: 0.5-1.5% COHB Smokers: Variable, but usually less than 10% Toxic: 20-30% COHB Lethal: Greater than 60% COHB METHB Art 0.7 <=1.5 % [facility] Na Whole Blood 140 135 - 145 mmol/L [facility] K Whole Blood 3.3 [...] Bld 304 (H) 65 - 199 mg/dL [facility] Comment: Diabetes: >=200 mg/dL plus symp toms. Lactate WB 8.2 (Critical) 0.5 - 2.2 mmol/L [facility] Comment: Noted by brass and wind instrument repairer. FIO2 Art 40 % [facility] PF Ratio Art 235 [facility]ORY Specimen Anatomical Collection Method Collection Time Receive d Time (Source) Location / / Volume Laterality Blood specimen 07/07/2017 10:04 7 (specimen) PM EST 10:04 PM EST Daphne Shahid MD CHEMISTRY ORDERABLES Performing Organization Address City/[facility]/[place] [address] (ABNORMAL) Hemoglobin (07/07/2017 10:00 PM EST) P athologist Signature Hemoglobin 12.8 (L) 13.7 - [facility] 16.5 gm/dL [facility] Specimen Anatomical Collection Method Collection Time Receive d Time (Source) Location / / Volume Laterality Blood specimen 07/07/2017 10:00 7 (specimen) PM EST 10:13 PM EST Resulting Agency Comment Spec In Lab Yuan Webber MD HEMATOLOGY ORDERABLES Performing Organization Address City/[facility]/[place] [address] (ABNORMAL) Potassium (07/07/2017 10:00 PM EST) P athologist Signature Potassium 3.4 (L) 3.5 - 5.0 [facility] mmol/L [facility] Comment: Please note: ??Patients with [...] Webber MD CHEMISTRY ORDERABLES Performing Organization Address City/[facility]/ZIP Code Phon e Number [address] (ABNORMAL) POCT Glucose (07/07/2017 8:49 PM EST) P athologist Signature POC Glucose 241 (H) 65 - 199 [facility] mg/dL [facility] Comment: Supplemental ranges: [...] [facility]/[place] [address] Prepare Albumin 5% in [...] BROWN BLOOD BANK ORDERABLES Performing Organization Address City/[facility]/ZIP [facility] [place] [address] EKG 12 Lead (07/07/2017 7:17 PM EST) Component Value Ref Range Test Analysis Performed Pathologis t Method Time At Signature Ventricular rate 75 BPM MUSE SYSTEM Atrial Rate 75 BPM MUSE SYSTEM P-R Interval 168 ms MUSE SYSTEM QRS Duration 104 ms MUSE SYSTEM Q-T Interval 462 ms MUSE SYSTEM QTC Calculated 515 ms MUSE SYSTEM (Bezet) Calculated P Stoddard 52 degrees MUSE SYSTEM Calculated R Stoddard -40 degrees MUSE SYSTEM Calculated T [place]oddard 39 degrees MUSE SYSTEM INTERPRETATION Normal sinus [...] athologist Signature pH Art 7.21 7.35 - [facility] (Critical) 7.45 [facility] Comment: Noted by brass and wind [...] Gas 12.8 (L) 13.7 - 16.5 gm/dL [facility] O2HB Art 97.5 (H) 94.0 - 97.0 % [facility] COHB Art 0.5 % [facility] Comment: Nonsmokers: 0.5-1.5% COHB Smokers: Variable, but usually less than 10% Toxic: 20-30% COHB Lethal: Greater than 60% COHB METHB Art 0.7 <=1.5 % [facility] Na Whole Blood 140 135 - 145 mmol/L [facility] K Whole Blood 3.0 [...] Bld 270 (H) 65 - 199 mg/dL [facility] Comment: Diabetes: >=200 mg/dL plus symp toms. Lactate WB 4.9 (Critical) 0.5 - 2.2 mmol/L [facility] Comment: Noted by brass and wind instrument repairer. FIO2 Art 100 % [facility] PF Ratio Art 238 [facility] Specimen Anatomical Collection Method Collection Time Receive d Time (Source) Location / / Volume Laterality Blood specimen 07/07/2017 6:57 PM 017 6:57 (specimen) EST PM EST Daphne Shahid MD CHEMISTRY ORDERABLES Performing Organization Address City/State/[place] [address] (ABNORMAL) BLOOD GAS 2 ARTERIAL (07/07/2017 5:31 PM EST) P athologist Signature pH Art 7.29 7.35 - [facility] (Critical) 7.45 [facility] Comment: Noted by brass and wind [...] Gas 10.0 (L) 13.7 - 16.5 gm/dL [facility] [facility] O2HB Art 97.3 (H) 94.0 - 97.0 % [facility] COHB Art 0.3 % [facility] Comment: Nonsmokers: 0.5-1.5% COHB Smokers: Variable, but usually less than 10% Toxic: 20-30% COHB Lethal: Greater than 60% COHB METHB Art 0.3 <=1.5 % [facility] Na Whole Blood 132 (L) 135 - 145 mmol/L [facility] Bld 293 (H) 65 - 199 mg/dL [facility] Comment: Diabetes: >=200 mg/dL plus symp toms. Lactate WB 3.1 (H) 0.5 - 2.2 mmol/L [facility] Specimen Anatomical Collection Method Collection Time Receive d Time (Source) Location / / Volume Laterality Blood specimen 07/07/2017 5:31 PM 017 5:31 (specimen) EST PM EST Daphne Shahid MD CHEMISTRY ORDERABLES Performing Organization Address City/[facility]/[place] [address] Fibrinogen (07/07/2017 5:30 PM EST) athologist Signature Fibrinogen 224 180 - 510 [facility] mg/dL [facility] Comment: Called by: JEET, Read [...] Perez MD HEMATOLOGY ORDERABLES Performing Organization Address City/[facility]/[place] [address] APTT (07/07/2017 5:30 PM EST) athologist Signature PTT 30 25 - 35 sec [facility] Comment: The recommended therapeutic range for fu ll dose, unfractionated [place] [facility] [place] [...] Organization Address City/State/[place] [address] (ABNORMAL) Prothrombin Time (07/07/2017 [...] Organization Address City/State/[place] [address] (ABNORMAL) Hemogram (07/07/2017 5:30 PM EST) athologist Signature WBC 19.6 (H) 4.0 - 9.5 [facility] x10(3)/[facility] LABORATORY RBC 3.08 (L) 4.58 - [facility] 5.54 [facility] x10(6)/[facility] LABORATORY Hemoglobin 9.2 (L) 13.7 - [facility] 16.5 gm/dL [facility] Hematocrit 28.0 (L) 40.5 - [facility] 48.5 % [facility] Comment: This result has been called to MONICA MORAN by DONALD GROSSMAN on 07 07 2017 at 1759, and has been read back. MCV 90.9 82.9 - 93.1 fL [facility] MCH 29.9 27.5 - 32.1 pg [facility] MCHC 32.9 32.0 - 35.7 gm/dL [facility] Platelets 155 145 - 357 x10(3)/[facility] LABORATORY RDWSD 46.5 (H) 36.0 - 45.0 [facility] LABORATORY RDWCV 14.1 (H) 11.4 - 13.8 % [facility] MPV 9.5 7.6 - 12.9 [facility] LABORATORY nRBC % Auto 0.0 % [facility] nRBC Abs Auto 0.000 0.000 - 0.000 x10(3)/[facility] LABORATORY Specimen Anatomical Collection Method Collection Time Receive d Time (Source) Location / / Volume Laterality Blood specimen 07/07/2017 5:30 PM 017 5:34 (specimen) EST PM EST Resulting Agency Comment Spec In Lab Yifan Perez MD HEMATOLOGY ORDERABLES Performing Organization Address City/State/[place] [address] Prepare Platelets, Apheresis (07/07/2017 5:00 PM EST) P athologist Signature Dispensed? Yes [facility] Specimen Anatomical Collection Method Collection Time Receive d Time (Source) Location / / Volume Laterality Blood specimen 07/07/2017 5:00 PM 017 4:58 (specimen) EST PM EST Daphne Shahid MD BLOOD BANK ORDERABLES Performing Organization Address City/State/[place] [address] Platelet count (07/07/2017 4:55 PM EST) P athologist Signature Platelets 177 145 - 357 [facility] x10(3)/[facility] LABORATORY Plat Immature 1.5 0.0 - 7.4 KAT[place]INA SU % % [facility] Comment: Limitation of the Immature Platelet Frac tion (IPF)-May be less reliable when the platelet count is less than 31y636/u L due to statistical imprecision. The IPF [...] in a decreased state of production. References: [employer] The Clinical Value of the Immature Platelet Fraction (IPF) in Cell Recovery Document Number 10-1143 12/2010 [employer] The Role of the Imm ature [...] Organization Address City/State/[place] [address] (ABNORMAL) Hemoglobin and Hematocrit, blood (07/07/2017 4:55 PM EST) P athologist Signature Hemoglobin 9.1 (L) 13.7 - 16.5 [facility] gm/dL [facility] Comment: This result has been [...] Organization Address City/State/[place] [address] (ABNORMAL) BLOOD GAS 2 ARTERIAL (07/07/2017 4:38 PM EST) Analysis Performed At Patho logist Time Signature pH Art 7.37 7.35 - [facility] 7.45 [facility] pCO2 Art 44 35 - 45 [facility] mmHg [facility] pO2 Art 322 (H) 85 - 104 [facility] LABORATORY HCO3 Art 24.9 20.0 - [facility] 26.0 [facility] mmol/L [facility] BE Art -0.4 -3.0 - 3.0 [facility] mmol/L [facility] Hgb Blood Gas 10.1 (L) 13.7 - [facility] 16.5 gm/dL [facility] O2HB Art 98.7 (H) 94.0 - [facility] 97.0 % [facility] COHB Art 0.1 % [facility] Comment: Nonsmokers: 0.5-1.5% COHB Smokers: Variable, but usually less than 10% Toxic: 20-30% COHB Lethal: Greater than 60% COHB METHB Art 0.3 <=1.5 % [facility] Na Whole Blood 130 (L) 135 - 145 mmol/L [facility] K Whole Blood 5.7 [...] Bld 295 (H) 65 - 199 mg/dL [facility] [...] Organization Address City/State/ZIP Code Phon e Number [place] [id number]OS[address] LAB[address]ORY Drive (ABNORMAL) BLOOD GAS 2 VENOUS (07/07/2017 4:06 PM EST) Analysis Performed At Patho logist Time Signature pH Cody 7.31 (L) 7.32 - [facility] 7.42 [facility] pCO2 Cody 47 41 - 51 [facility] LABORATORY pO2 Cody 53 (H) 25 - 40 [facility] LABORATORY HCO3 Cody 22.7 mmol/L [facility] BE Cody -3.7 mmol/L [facility] Hgb Blood Gas 10.2 (L) 13.7 - [facility] 16.5 gm/dL [facility] O2HB Cody 81.0 % [facility] COHB Cody 1.0 % [facility] Comment: Nonsmokers: 0.5-1.5% COHB Smokers: Variable, but usually less than 10% Toxic: 20-30% COHB Lethal: Greater than 60% COHB METHB Cody 0.3 <=1.5 % [facility] Na Whole Blood 132 (L) 135 - 145 mmol/L [facility] K Whole Blood 5.3 [...] Bld 231 (H) 65 - 199 mg/dL [facility] Comment: Diabetes: >=200 mg/dL plus symp toms Lactate WB 1.1 0.5 - 2.2 mmol/L [facility] BGas Source Venous [facility] Specimen Anatomical Collection Method Collection Time Receive d Time (Source) Location / / Volume Laterality Blood specimen 07/07/2017 4:06 PM 017 4:06 (specimen) EST PM EST Daphne Shahid MD CHEMISTRY ORDERABLES Performing Organization Address City/State/[place] [address] (ABNORMAL) BLOOD GAS 2 ARTERIAL (07/07/2017 4:05 PM EST) Analysis Performed At Patho logist Time Signature pH Art 7.36 7.35 - [facility] 7.45 [facility] pCO2 Art 40 35 - 45 [facility] LABORATORY pO2 Art 282 (H) 85 - 104 [facility] LABORATORY HCO3 Art 22.1 20.0 - [facility] 26.0 [facility] LABORATORY BE Art -3.4 (L) -3.0 - 3.0 [facility] mmol/L [facility] Hgb Blood Gas 10.2 (L) 13.7 - [facility] 16.5 gm/dL [facility] O2HB Art 98.4 (H) 94.0 - [facility] 97.0 % [facility] COHB Art 0.3 % [facility] Comment: Nonsmokers: 0.5-1.5% COHB Smokers: Variable, but usually less than 10% Toxic: 20-30% COHB Lethal: Greater than 60% COHB METHB Art 0.3 <=1.5 % [facility] Na Whole Blood 131 (L) 135 - 145 mmol/L [facility] K Whole Blood 5.4 [...] Bld 260 (H) 65 - 199 mg/dL [facility] [...] Organization Address City/State/[place] [address] (ABNORMAL) BLOOD GAS 2 ARTERIAL (07/07/2017 2:29 PM EST) Analysis Performed At Patho logist Time Signature pH Art 7.43 7.35 - [facility] 7.45 [facility] pCO2 Art 36 35 - 45 [facility] LABORATORY pO2 Art 221 (H) 85 - 104 [facility] LABORATORY HCO3 Art 23.2 20.0 - [facility] 26.0 [facility] mmol/[facility] LAB[facility] BE Art -1.2 -3.0 - 3.0 [facility] mmol/L [facility] Hgb Blood Gas 13.9 13.7 - [facility] 16.5 gm/dL [facility] O2HB Art 97.8 (H) 94.0 - [facility] 97.0 % [facility] COHB Art 1.1 % [facility] [...] Whole Bld 184 65 - 199 mg/dL [facility] [...] Organization Address City/State/[place] [address] Prepare Coag Factors (Non-Hemophilia) (07/07/2017 1:25 PM EST) athologist Signature Dispensed? Yes [facility] Specimen Anatomical Collection Method Collection Time Receive d Time (Source) Location / / Volume Laterality Blood specimen 07/07/2017 1:25 PM 017 1:21 (specimen) EST PM EST Daphne Shahid MD BLOOD BANK ORDERABLES Performing Organization Address City/[facility]/ZIP Code Phon e Number [address] Prepare RBC (07/07/2017 1:10 PM EST) athologist Signature Dispensed? Yes [facility] Specimen Anatomical Collection Method Collection Time Receive d Time (Source) Location / / Volume Laterality Blood specimen 07/07/2017 1:10 PM 017 1:05 (specimen) EST PM EST Daphne Shahid MD BLOOD BANK ORDERABLES Performing Organization Address City/[facility]/ZIP Code Phon e Number [address] POCT Glucose (07/07/2017 11:56 AM EST) athologist Signature POC Glucose 188 65 - 199 [facility] Comment: Supplemental ranges: [...] [facility] [address] POCT Glucose (07/07/2017 11:05 AM EST) athologist Signature POC Glucose 168 65 - 199 [facility] mg/dL [facility] Comment: Supplemental ranges: [...] [facility]ZIP Code Phon e Number [address] POCT Glucose (07/07/2017 10:02 AM EST) athologist Signature POC Glucose 191 65 - 199 KATALINA ZHAOSU mg/dL [facility] Comment: Supplemental ranges: [...] [facility]ZIP Code Phon e Number [address] POCT Glucose (07/07/2017 7:53 AM EST) athologist Signature POC Glucose 178 65 - 199 KATALINA ZHAOSU mg/dL [facility] Comment: Supplemental ranges: [...] [facility]/ZIP Code Phon e Number [address] POCT Glucose (07/07/2017 7:03 AM EST) athologist Signature POC Glucose 188 65 - 199 KATALINA ZHAOSU mg/dL [facility] Comment: Supplemental ranges: <140 mg/dL before meals <180 mg/dL all other times of the day Specimen Anatomical Collection Method Collection Time Receive d Time (Source) Location / / Volume Laterality Blood specimen 07/07/2017 7:03 AM 017 7:03 (specimen) EST AM EST Daphne Shahid MD POINT OF CARE TEST ORDERABLE S Performing Organization Address City/State/ZIP Code Phon e Number [address] (ABNORMAL) POCT Glucose (07/07/2017 6:17 AM EST) athologist Signature POC Glucose 207 (H) 65 - 199 [facility] Comment: Supplemental ranges: <140 mg/dL before meals <180 mg/dL all other times of the day Specimen Anatomical Collection Method Collection Time Receive d Time (Source) Location / / Volume Laterality Blood specimen 07/07/2017 6:17 AM 017 6:17 (specimen) EST AM EST Daphne Shahid MD POINT OF CARE TEST ORDERABLE S Performing Organization Address City/State/ZIP Code Phon e Number [address] Differential, Automated (07/07/2017 5:15 AM EST) athologist [facility] Neutrophils % 69.7 % [facility] Neutr Abs (ANC) 5.32 1.70 - [facility] 6.10 [facility] x10(3)/[facility] LABORATORY Lymphocytes % 16.3 % [facility] Lymphocytes Abs 1.2 0.9 - 3.2 [facility] x10(3)/[facility] LABORATORY Monocytes % 10.5 % [facility] Monocyte Abs 0.8 0.3 - 0.9 [facility] x10(3)/[facility] LABORATORY Eosinophils % 2.5 % [facility] Eosinophils Abs 0.2 0.0 - 0.4 [facility] x10(3)/[facility] LABORATORY Basophils % 0.7 % [facility] Basophils Abs 0.0 0.0 - 0.1 [facility] x10(3)/[facility] LABORATORY Immature Gran % 0.30 [...] Melisa Gran Abs 0.02 0.00 - 0.04 x10(3)/[facility] LAB[facility]ATORY Specimen Anatomical Collection Method Collection Time Receive d Time (Source) Location / / Volume Laterality Blood specimen 07/07/2017 5:15 AM 017 5:34 (specimen) EST AM EST Resulting Agency Comment Spec In Lab Daphne Shahid MD HEMATOLOGY ORDERABLES Performing Organization Address City/State/[place] [address] (ABNORMAL) Hemogram (07/07/2017 5:15 AM EST) Analysis Performed At Patho logist Time Signature WBC 7.6 4.0 - 9.5 [facility] x10(3)/[facility] LABORATORY RBC 4.82 4.58 - [facility] 5.54 [facility] x10(6)/[facility] LABORATORY Hemoglobin 14.4 13.7 - [facility] 16.5 gm/dL [facility] Hematocrit 42.1 40.5 - [facility] 48.5 % [facility] MCV 87.3 82.9 - [facility] 93.1 [facility] LABORATORY MCH 29.9 27.5 - [facility] 32.1 pg [facility] MCHC 34.2 32.0 - [facility] 35.7 gm/dL [facility] Platelets 188 145 - 357 [facility] x10(3)/[facility] LABORATORY RDWSD 45.1 (H) 36.0 - [facility] 45.0 [facility] LABORATORY RDWCV 14.3 (H) 11.4 - [facility] 13.8 % [facility] MPV 9.4 7.6 - 12.9 [facility] LABORATORY nRBC % Auto 0.0 % [facility] nRBC Abs Auto 0.000 0.000 - [facility] 0.000 [facility] x10(3)/[facility] LABORATORY Specimen Anatomical Collection Method Collection Time Receive d Time (Source) Location / / Volume Laterality Blood specimen 07/07/2017 5:15 AM 017 5:34 (specimen) EST AM EST Resulting Agency Comment Spec In Lab Daphne Shahid MD HEMATOLOGY ORDERABLES Performing Organization Address City/[facility]/[place] [address] (ABNORMAL) APTT (07/07/2017 5:15 AM EST) athologist Signature PTT 69 (H) 25 - 35 sec [facility] Comment: The recommended therapeutic range for fu ll dose, unfractionated heparin [place] [facility] [place] is [...] Shahid MD HEMATOLOGY ORDERABLES Performing Organization Address City/[facility]/[place] [address] Magnesium (07/07/2017 5:15 AM EST) athologist Signature Magnesium 0.94 0.69 - 1.07 [facility] mmol/L [facility] Specimen Anatomical Collection Method Collection Time Receive d Time (Source) Location / / Volume Laterality Blood specimen 07/07/2017 5:15 AM 017 5:34 (specimen) EST AM EST Resulting Agency Comment Spec In Lab Daphne Shahid MD CHEMISTRY ORDERABLES Performing Organization Address City/[facility]/[place] [address] (ABNORMAL) Basic Metabolic Panel (non-fasting) (07/07/2017 5:15 AM EST) P athologist Signature Glucose Lvl 203 (H) 65 - 199 [facility] mg/dL [facility] Comment: Diabetes: [...] or in patients with acute kidney failure. [email or web address]/DHnkdep [email or web address]/DHMCnkf Specimen Anatomical Collection Method Collection Time Receive d Time (Source) Location / / Volume Laterality Blood specimen 07/07/2017 5:15 AM 017 5:34 (specimen) EST AM EST Resulting Agency Comment Spec In Lab Daphne Shahid MD CHEMISTRY ORDERABLES Performing Organization Address City/State/[place] [address] (ABNORMAL) Cardiac Enzymes (LEB/CGP) (07/07/2017 5:15 AM EST) P athologist Signature Troponin-T 2.07 (H) 0.00 - [facility] 0.00 ng/mL [facility] Comment: The 99th percentile for Troponin T is le ss than 0.01 ng/mL, any detectable cTnT concentration using this assay should be considered elevated. According to the third universal definit ion of myocardial infarction the following criteria with a clinical prese ntation consistent with acute myocardial ischemia meets the diagnosis for a myocardial infarction (UT). Detection of a rise and/or fall of [...] additional sample may be indicated. Reference: Third Dovray Definition of Myocardial Infarction. Journal of the [employer] 2012;60:1581-98 CK, Total 88 0 - 200 unit/L [facility] Specimen Anatomical Collection Method Collection Time Receive d Time (Source) Location / / Volume Laterality Blood specimen 07/07/2017 5:15 AM 017 5:34 (specimen) EST AM EST Resulting Agency Comment Spec In Lab Daphne Shahid MD CHEMISTRY ORDERABLES Performing Organization Address City/[facility]/ZIP Code Phon e Number [address] POCT Glucose (07/07/2017 5:01 AM EST) P athologist Signature POC Glucose 182 65 - 199 [facility] mg/dL [facility] Comment: Supplemental ranges: [...] [facility] [address] POCT Glucose (07/07/2017 4:08 AM EST) athologist Signature POC Glucose 199 65 - 199 [facility] mg/dL [facility] Comment: Supplemental ranges: <140 mg/dL before meals <180 mg/dL all other times of the day Specimen Anatomical Collection Method Collection Time Receive d Time (Source) Location / / Volume Laterality Blood specimen 07/07/2017 4:08 AM 017 4:08 (specimen) EST AM EST Daphne Shahid MD POINT OF CARE TEST ORDERABLE S Performing Organization Address City/State/[place] [address] POCT Glucose (07/07/2017 3:03 AM EST) athologist Signature POC Glucose 188 65 - 199 [facility] mg/dL [facility] Comment: Supplemental ranges: [...] [facility] [address] (ABNORMAL) POCT Glucose (07/07/2017 2:08 AM EST) athologist Signature POC Glucose 200 (H) 65 - 199 [facility] mg/dL [facility] Comment: Supplemental ranges: <140 mg/dL before meals <180 mg/dL all other times of the day Specimen Anatomical Collection Method Collection Time Receive d Time (Source) Location / / Volume Laterality Blood specimen 07/07/2017 2:08 AM 017 2:08 (specimen) EST AM EST Daphne Shahid MD POINT OF CARE TEST ORDERABLE S Performing Organization Address City/State/[place] [address] (ABNORMAL) POCT Glucose (07/07/2017 1:31 AM EST) P athologist Signature POC Glucose 209 (H) 65 - 199 KATALINA DAVIS mg/dL [facility] Comment: Supplemental ranges: <140 mg/dL before meals <180 mg/dL all other times of the day Specimen Anatomical Collection Method Collection Time Receive d Time (Source) Location / / Volume Laterality Blood specimen 07/07/2017 1:31 AM 017 1:31 (specimen) EST AM EST Daphne Shahid MD POINT OF CARE TEST ORDERABLE S Performing Organization Address City/State/[place] [address] XR Chest PA or [...] Glucose 161 65 - 199 [facility] mg/dL [facility] Comment: Supplemental ranges: [...] [facility] [address] (ABNORMAL) APTT (07/07/2017 12:00 AM EST) athologist Signature PTT 103 (H) 25 - 35 sec [facility] Comment: The recommended therapeutic range for fu ll dose, unfractionated heparin [place] [facility] [place] is [...] Shahid MD HEMATOLOGY ORDERABLES Performing Organization Address City/[facility]/[place] [address] POCT Glucose (07/06/2017 9:55 PM EST) athologist Signature POC Glucose 109 65 - 199 [facility] Comment: Supplemental ranges: <140 mg/dL before meals <180 mg/dL all other times of the day Specimen Anatomical Collection Method Collection Time Receive d Time (Source) Location / / Volume Laterality Blood specimen 07/06/2017 9:55 PM 017 9:55 (specimen) EST PM EST Daphne Shahid MD POINT OF CARE TEST ORDERABLE S Performing Organization Address City/State/[place] [address] POCT Glucose (07/06/2017 9:04 PM EST) athologist Signature POC Glucose 120 65 - 199 [facility] Comment: Supplemental ranges: <140 mg/dL before meals <180 mg/dL all other times of the day Specimen Anatomical Collection Method Collection Time Receive d Time (Source) Location / / Volume Laterality Blood specimen 07/06/2017 9:04 PM 017 9:04 (specimen) EST PM EST Daphne Shahid MD POINT OF CARE TEST ORDERABLE S Performing Organization Address City/State/ZIP Code Phon e Number [address] POCT Glucose (07/06/2017 7:45 PM EST) athologist Signature POC Glucose 158 65 - 199 [facility] Comment: Supplemental ranges: <140 mg/dL before meals <180 mg/dL all other times of the day Specimen Anatomical Collection Method Collection Time Receive d Time (Source) Location / / Volume Laterality Blood specimen 07/06/2017 7:45 PM 017 7:45 (specimen) EST PM EST Daphne Shahid MD POINT OF CARE TEST ORDERABLE S Performing Organization Address City/State/ZIP Code Phon e Number [address] Potassium (07/06/2017 7:40 PM EST) athologist Signature Potassium 3.9 3.5 - 5.0 [facility] mmol/L [facility] Comment: Please note: ??Patients with [...] Shahid MD CHEMISTRY ORDERABLES Performing Organization Address City/[facility]/[place] [address] (ABNORMAL) Cardiac Enzymes (LEB/CGP) (07/06/2017 7:40 PM EST) athologist Signature Troponin-T 2.27 (H) 0.00 - [facility] 0.00 ng/mL [facility] LABORATORY Comment: The 99th percentile for Troponin T is le ss than 0.01 ng/mL, any detectable cTnT concentration using this assay should be considered elevated. According to the third universal definit ion of myocardial infarction the following criteria with a clinical prese ntation consistent with acute myocardial ischemia meets the diagnosis for a myocardial infarction (UT). Detection of a rise and/or fall of [...] additional sample may be indicated. Reference: Third Dovray Definition of Myocardial Infarction. Journal of the [employer] 2012;60:1581-98 CK, Total 93 0 - 200 unit/L [facility] Specimen Anatomical Collection Method Collection Time Receive d Time (Source) Location / / Volume Laterality Blood specimen 07/06/2017 7:40 PM 017 7:52 (specimen) EST PM EST Resulting Agency Comment Spec In Lab Daphne Shahid MD CHEMISTRY ORDERABLES Performing Organization Address City/[facility]/[place] [address] (ABNORMAL) POCT Glucose (07/06/2017 7:13 PM EST) athologist Signature POC Glucose 200 (H) 65 - 199 [facility]dL [facility] Comment: Supplemental ranges: [...] [facility]/[place] [address] (ABNORMAL) APTT (07/06/2017 6:15 PM EST) athologist Signature PTT 94 (H) 25 - 35 sec [facility] Comment: The recommended therapeutic range for fu ll dose, unfractionated [place] [facility] [...] Shahid MD HEMATOLOGY ORDERABLES Performing Organization Address City/[facility]/[place] [address] (ABNORMAL) POCT Glucose (07/06/2017 6:03 PM EST) athologist Signature POC Glucose 236 (H) 65 - 199 [facility] Comment: Supplemental ranges: <140 mg/dL before meals <180 mg/dL all other times of the day Specimen Anatomical Collection Method Collection Time Receive d Time (Source) Location / / Volume Laterality Blood specimen 07/06/2017 6:03 PM 017 6:03 (specimen) EST PM EST Daphne Shahid MD POINT OF CARE TEST ORDERABLE S Performing Organization Address City/State/[place] [address] (ABNORMAL) POCT Glucose (07/06/2017 5:01 PM EST) athologist Signature POC Glucose 235 (H) 65 - 199 [facility]dL [facility] Comment: Supplemental ranges: <140 mg/dL before meals <180 mg/dL all other times of the day Specimen Anatomical Collection Method Collection Time Receive d Time (Source) Location / / Volume Laterality Blood specimen 07/06/2017 5:01 PM 017 5:01 (specimen) EST PM EST Daphne Shahid MD POINT OF CARE TEST ORDERABLE S Performing Organization Address City/State/[place] [address] (ABNORMAL) POCT Glucose (07/06/2017 4:06 PM EST) athologist Signature POC Glucose 202 (H) 65 - 199 [facility] mg[facility]dL [facility] Comment: Supplemental ranges: <140 mg/dL before meals <180 mg/dL all other times of the day Specimen Anatomical Collection Method Collection Time Receive d Time (Source) Location / / Volume Laterality Blood specimen 07/06/2017 4:06 PM 017 4:06 (specimen) EST PM EST Daphne Shahid MD POINT OF CARE TEST ORDERABLE S Performing Organization Address City/State/[place] [address] POCT Glucose (07/06/2017 2:59 PM EST) athologist Signature POC Glucose 178 65 - 199 [facility] mg/dL [facility] Comment: Supplemental ranges: <140 mg/dL before meals <180 mg/dL all other times of the day Specimen Anatomical Collection Method Collection Time Receive d Time (Source) Location / / Volume Laterality Blood specimen 07/06/2017 2:59 PM 017 2:59 (specimen) EST PM EST Daphne Shahid MD POINT OF CARE TEST ORDERABLE S Performing Organization Address City/State/[place] [address] (ABNORMAL) Cardiac Enzymes (LEB/CGP) (07/06/2017 2:10 PM EST) athologist Signature Troponin-T 2.34 (H) 0.00 - [facility] 0.00 ng/mL [facility] Comment: The 99th percentile for Troponin T is le ss than 0.01 ng/mL, any detectable cTnT concentration using this assay should be considered elevated. According to the third universal definit ion of myocardial infarction the following criteria with a clinical prese ntation consistent with acute myocardial ischemia meets the diagnosis for a myocardial infarction (UT). Detection of a rise and/or fall of [...] additional sample may be indicated. Reference: Third Dovray Definition of Myocardial Infarction. Journal of the [employer] 2012;60:1581-98 CK, Total 101 0 - 200 unit/L [facility] Specimen Anatomical Collection Method Collection Time Receive d Time (Source) Location / / Volume Laterality Blood specimen 07/06/2017 2:10 PM 017 2:26 (specimen) EST PM EST Resulting Agency Comment Spec In Lab Daphne Shahid MD CHEMISTRY ORDERABLES Performing Organization Address City/State/[place] [address] [facility] [address] POCT Glucose (07/06/2017 2:08 PM EST) athologist Signature POC Glucose 192 65 - 199 [facility] mg/dL [facility] Comment: Supplemental ranges: <140 mg/dL before meals <180 mg/dL all other times of the day Specimen Anatomical Collection Method Collection Time Receive d Time (Source) Location / / Volume Laterality Blood specimen 07/06/2017 2:08 PM 017 2:08 (specimen) EST PM EST Daphne Shahid MD POINT OF CARE TEST ORDERABLE S Performing Organization Address City/State/[place] [address] POCT Glucose (07/06/2017 1:04 PM EST) P athologist Signature POC Glucose 162 65 - 199 [place] [facility] mg/dL [facility] Comment: Supplemental ranges: [...] [facility]/[place] [address] POCT Glucose (07/06/2017 12:05 PM EST) P athologist Signature POC Glucose 196 65 - 199 [facility]dL [facility] Comment: Supplemental ranges: <140 mg/dL before meals <180 mg/dL all other times of the day Specimen Anatomical Collection Method Collection Time Receive d Time (Source) Location / / Volume Laterality Blood specimen 07/06/2017 12:05 7 (specimen) PM EST 12:05 PM EST Daphne Shahid MD POINT OF CARE TEST ORDERABLE S Performing Organization Address City/State/[place] [address] EKG 12 Lead (07/06/2017 12:00 PM EST) Component Value Ref Range Test Analysis Performed Pathologis t Method Time At Signature Ventricular rate 91 BPM MUSE SYSTEM Atrial Rate 91 BPM MUSE SYSTEM P-R Interval 140 ms MUSE SYSTEM QRS Duration 94 ms MUSE SYSTEM Q-T Interval 394 ms MUSE SYSTEM QTC Calculated 484 ms MUSE SYSTEM (Bezet) Calculated P Stoddard 36 degrees MUSE SYSTEM Calculated R Stoddard -19 degrees MUSE SYSTEM Calculated T Stoddard 104 degrees MUSE SYSTEM INTERPRETATION Normal sinus rhythm MUSE SYSTEM 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) ST & T wave abnormality, consider lateral ischemia Abnormal ECG When compared with ECG of 05-JUL-2017 20:39, No significant change was found Confirmed by MD Luci, Taurus Braun ([id number]) on 07/06/2017 5:07:33 PM Specimen Anatomical Collection Method Collection Time Receive d Time (Source) Location / / Volume Laterality 07/06/2017 12:00 07/06/2017 5:07 PM EST PM EST Daphne Shahid MD ECG ORDERABLES Performing Organization Address City/State/ZIP Code Phon e Number MUSE SYSTEM ABORH Recheck Status (07/06/2017 12:00 PM EST) [facility] Method Time Signature ABORH Type Completed [facility] LABORATORY Specimen Anatomical Collection Method Collection Time Receive d Time (Source) Location / / Volume Laterality Blood specimen 07/06/2017 12:00 7 (specimen) PM EST 12:24 PM EST Resulting Agency Comment Spec In Lab Daphne Shahid MD BLOOD BANK ORDERABLES Performing Organization Address City/[facility]/[place] [address] Antibody screen (07/06/2017 12:00 PM EST) [facility] Method Time Signature Ab Screen Negative [facility] LABORATORY Expires at 07/09/2017 [facility] [id number] on: [facility] Specimen Anatomical Collection Method Collection Time Receive d Time (Source) Location / / Volume Laterality Blood specimen 07/06/2017 12:00 7 (specimen) PM EST 12:24 PM EST Resulting Agency Comment Spec In Lab Daphne Shahid MD BLOOD BANK ORDERABLES Performing Organization Address City/[facility]/[place] [address] ABO/Rh Typing (07/06/2017 12:00 [...] [facility]/[place] [address] Prothrombin Time (07/06/2017 11:24 [...] Shahid MD HEMATOLOGY ORDERABLES Performing Organization Address City/[facility]/[place] [address] (ABNORMAL) APTT (07/06/2017 11:24 AM EST) athologist Signature PTT 52 (H) 25 - 35 sec [facility] Comment: The recommended therapeutic range for fu ll dose, unfractionated heparin [place] [facility] [place] [place] is [...] Address City/State/ZIP Code Phon e Number [address] POCT Glucose (07/06/2017 11:02 AM EST) P athologist Signature POC Glucose 187 65 - 199 [place] mg/dL [facility] Comment: Supplemental ranges: [...] [facility]/ZIP Code Phon e Number [address] POCT Glucose (07/06/2017 10:18 AM EST) athologist Signature POC Glucose 193 65 - 199 [facility] Comment: Supplemental ranges: <140 mg/dL before meals <180 mg/dL all other times of the day Specimen Anatomical Collection Method Collection Time Receive d Time (Source) Location / / Volume Laterality Blood specimen 07/06/2017 10:18 7 (specimen) AM EST 10:18 AM EST Daphne Shahid MD POINT OF CARE TEST ORDERABLE S Performing Organization Address City/State/ZIP Code Phon e Number [address] POCT Glucose (07/06/2017 9:25 AM EST) P athologist Signature POC Glucose 182 65 - 199 [facility] mg/dL [facility] Comment: Supplemental ranges: <140 mg/dL before meals <180 mg/dL all other times of the day Specimen Anatomical Collection Method Collection Time Receive d Time (Source) Location / / Volume Laterality Blood specimen 07/06/2017 9:25 AM 017 9:25 (specimen) EST AM EST Daphne Shahid MD POINT OF CARE TEST ORDERABLE S Performing Organization Address City/State/ZIP Code Phon e Number [address] (ABNORMAL) Cardiac Enzymes (LEB/CGP) (07/06/2017 8:10 AM EST) athologist Signature Troponin-T 2.26 (H) 0.00 - [place] 0.00 ng/mL [facility] Comment: The 99th percentile for Troponin T is le ss than 0.01 ng/mL, any detectable cTnT concentration using this assay should be considered elevated. According to the third universal definit ion of myocardial infarction the following criteria with a clinical prese ntation consistent with acute myocardial ischemia meets the diagnosis for a myocardial infarction (UT). Detection of a rise and/or fall of [...] additional sample may be indicated. Reference: Third Dovray Definition of Myocardial Infarction. Journal of the [employer] 2012;60:1581-98 CK, Total 124 0 - 200 unit/L [facility] Specimen Anatomical Collection Method Collection Time Receive d Time (Source) Location / / Volume Laterality Blood specimen 07/06/2017 8:10 AM 017 8:23 (specimen) EST AM EST Resulting Agency Comment Spec In Lab Daphne Shahid MD CHEMISTRY ORDERABLES Performing Organization Address City/[facility]/ZIP Code Phon e Number [address] Magnesium (07/06/2017 8:10 AM EST) athologist Signature Magnesium 0.84 0.69 - 1.07 [facility] mmol/L [facility] Specimen Anatomical Collection Method Collection Time Receive d Time (Source) Location / / Volume Laterality Blood specimen 07/06/2017 8:10 AM 017 8:21 (specimen) EST AM EST Resulting Agency Comment Spec In Lab Daphne Shahid MD CHEMISTRY ORDERABLES Performing Organization Address City/State/[place] [address] (ABNORMAL) Basic Metabolic Panel (non-fasting) (07/06/2017 8:10 AM EST) P athologist Signature Glucose Lvl 199 65 - 199 [facility] mg/dL [facility] Comment: Diabetes: [...] or in patients with acute kidney failure. [email or web address] Specimen Anatomical Collection Method Collection Time Receive d Time (Source) Location / / Volume Laterality Blood specimen 07/06/2017 8:10 AM 017 8:21 (specimen) EST AM EST Resulting Agency Comment Spec In Lab Daphne Shahid MD CHEMISTRY ORDERABLES Performing Organization Address City/[facility]/ZIP Code Phon e Number [address] POCT Glucose (07/06/2017 7:34 AM EST) P athologist Signature POC Glucose 198 65 - 199 [facility]dL [facility] Comment: Supplemental ranges: [...] [facility]/ZIP Code Phon e Number [address] POCT Glucose (07/06/2017 7:03 AM EST) athologist Signature POC Glucose 181 65 - 199 [facility]dL [facility] Comment: Supplemental ranges: [...] [facility]/[place] [address] XR Chest PA or [...] POC Glucose 172 65 - 199 [facility] mg/dL [facility] Comment: Supplemental ranges: <140 mg/dL before meals <180 mg/dL all other times of the day Specimen Anatomical Collection Method Collection Time Receive d Time (Source) Location / / Volume Laterality Blood specimen 07/06/2017 6:21 AM 017 6:21 (specimen) EST AM EST Daphne Shahid MD POINT OF CARE TEST ORDERABLE S Performing Organization Address City/State/[place] [address] POCT Glucose (07/06/2017 5:08 AM EST) athologist Signature POC Glucose 154 65 - 199 [place] mg/dL [facility] Comment: Supplemental ranges: <140 mg/dL before meals <180 mg/dL all other times of the day Specimen Anatomical Collection Method Collection Time Receive d Time (Source) Location / / Volume Laterality Blood specimen 07/06/2017 5:08 AM 017 5:08 (specimen) EST AM EST Daphne Shahid MD POINT OF CARE TEST ORDERABLE S Performing Organization Address City/State/ZIP Code Phon e Number [address] POCT Glucose (07/06/2017 4:05 AM EST) athologist Signature POC Glucose 142 65 - 199 [facility]dL [facility] Comment: Supplemental ranges: <140 mg/dL before meals <180 mg/dL all other times of the day Specimen Anatomical Collection Method Collection Time Receive d Time (Source) Location / / Volume Laterality Blood specimen 07/06/2017 4:05 AM 017 4:05 (specimen) EST AM EST Daphne Shahid MD POINT OF CARE TEST ORDERABLE S Performing Organization Address City/State/ZIP Code Phon e Number [address] POCT Glucose (07/06/2017 3:00 AM EST) athologist Signature POC Glucose 116 65 - 199 [facility] mg/dL [facility] Comment: Supplemental ranges: <140 mg/dL before meals <180 mg/dL all other times of the day Specimen Anatomical Collection Method Collection Time Receive d Time (Source) Location / / Volume Laterality Blood specimen 07/06/2017 3:00 AM 017 3:00 (specimen) EST AM EST Daphne Shahid MD POINT OF CARE TEST ORDERABLE S Performing Organization Address City/State/[place] [address] Potassium (07/06/2017 2:20 AM EST) athologist Signature Potassium 3.9 3.5 - 5.0 [facility] mmol/L [facility] Comment: Please note: ??Patients with [...] Organization Address City/State/[place] [address] Differential, Automated (07/06/2017 2:20 AM EST) athologist Signature Neutrophils % 72.9 % [facility] Neutr Abs (ANC) 5.53 1.70 - [facility] 6.10 [facility] x10(3)/[facility] LABORATORY Lymphocytes % 16.4 % [facility] Lymphocytes Abs 1.2 0.9 - 3.2 [facility] x10(3)/[facility] LABORATORY Monocytes % 9.4 % [facility] Monocyte Abs 0.7 0.3 - 0.9 [facility] x10(3)/[facility] LABORATORY Eosinophils % 0.5 % [facility] Eosinophils Abs 0.0 0.0 - 0.4 [facility] x10(3)/[facility] LABORATORY Basophils % 0.4 % [facility] Basophils Abs 0.0 0.0 - 0.1 [facility] x10(3)/[facility] LABORATORY Immature Gran % 0.40 [...] Melisa Gran Abs 0.03 0.00 - 0.04 x10(3)/[facility] LABORATORY Specimen Anatomical Collection Method Collection Time Receive d Time (Source) Location / / Volume Laterality Blood specimen 07/06/2017 2:20 AM 017 2:33 (specimen) EST AM EST Resulting Agency Comment Spec In Lab Daphne Shahid MD HEMATOLOGY ORDERABLES Performing Organization Address City/State/[place] [address] (ABNORMAL) Hemogram (07/06/2017 2:20 AM EST) Analysis Performed At Patho logist Time Signature WBC 7.6 4.0 - 9.5 [facility] x10(3)/[facility] LABORATORY RBC 4.52 (L) 4.58 - [facility] 5.54 [facility] x10(6)/[facility] LABORATORY Hemoglobin 13.4 (L) 13.7 - [facility] 16.5 gm/dL [facility] Hematocrit 39.7 (L) 40.5 - [facility] 48.5 % [facility] MCV 87.8 82.9 - [facility] 93.1 [facility] LABORATORY MCH 29.6 27.5 - [facility] 32.1 pg [facility] MCHC 33.8 32.0 - [facility] 35.7 gm/dL [facility] Platelets 189 145 - 357 [facility] x10(3)/[facility] LABORATORY RDWSD 45.6 (H) 36.0 - [facility] 45.0 [facility] LABORATORY RDWCV 14.3 (H) 11.4 - [facility] 13.8 % [facility] MPV 9.1 7.6 - 12.9 [facility] LABORATORY nRBC % Auto 0.0 % [facility] nRBC Abs Auto 0.000 0.000 - [facility] 0.000 [facility] x10(3)/[facility] LABORATORY Specimen Anatomical Collection Method Collection Time Receive d Time (Source) Location / / Volume Laterality Blood specimen 07/06/2017 2:20 AM 017 2:33 (specimen) EST AM EST Resulting Agency Comment Spec In Lab Daphne Shahid MD HEMATOLOGY ORDERABLES Performing Organization Address City/[facility]/[place] [address] (ABNORMAL) APTT (07/06/2017 2:20 AM EST) athologist Signature PTT 52 (H) 25 - 35 sec [facility] Comment: The recommended therapeutic range for fu ll dose, unfractionated heparin [place] [facility] [place] is [...] Shahid MD HEMATOLOGY ORDERABLES Performing Organization Address City/[facility]/[place] [address] POCT Glucose (07/06/2017 2:20 AM EST) athologist [facility] POC Glucose 115 65 - 199 [facility] mg/dL [facility] Comment: Supplemental ranges: [...] [facility] [address] (ABNORMAL) Cardiac Enzymes (LEB/CGP) (07/06/2017 2:20 AM EST) athologist [facility] Troponin-T 2.13 (H) 0.00 - [facility] 0.00 ng/mL [facility] Comment: The 99th percentile for Troponin T is le ss than 0.01 ng/mL, any detectable cTnT concentration using this assay should be considered elevated. According to the third universal definit ion of myocardial infarction the following criteria with a clinical prese ntation consistent with acute myocardial ischemia meets the diagnosis for a myocardial infarction (UT). Detection of a rise and/or fall of [...] additional sample may be indicated. Reference: Third Dovray Definition of Myocardial Infarction. Journal of the [employer] 2012;60:1581-98 CK, Total 129 0 - 200 unit/L [facility] Specimen Anatomical Collection Method Collection Time Receive d Time (Source) Location / / Volume Laterality Blood specimen 07/06/2017 2:20 AM 017 2:33 (specimen) EST AM EST Resulting Agency Comment Spec In Lab Daphne Shahid MD CHEMISTRY ORDERABLES Performing Organization Address City/State/[place] [address] (ABNORMAL) Hemoglobin A1c (07/06/2017 [...] Est Avg Gluc See note mg/dL [facility] Comment: Estimated Average Glucose [...] Additional resources are available on [facility] ADA website. Macario HAMMOND, Ruthann J, Deysi R, et al. ??Tr anslating the A1C assay into estimated average glucose values. ??Diabetes Care 2008:31(8):1258-9891. Specimen Anatomical Collection Method Collection Time Receive d Time (Source) Location / / Volume Laterality Blood specimen 07/06/2017 2:20 AM 017 2:34 (specimen) EST AM EST Resulting Agency Comment Spec In Lab Daphne Shahid MD CHEMISTRY ORDERABLES Performing Organization Address City/State/[place] [address] (ABNORMAL) Lipid Panel (07/06/2017 2:20 AM EST) [facility] gist Method Time Signature Chol, Total 150 <=239 [facility] mg/dL [facility] LABORATORY Triglycerides [...] greater than or equal to 190 mg/dL. [email or web address] Adults aged 40-75 with LDL 70-189 mg/dL should have their 10 year ASCVD risk estimated with the ACC/AHA ASCVD risk es timator http://tools.acc.org/QZNSK-Lopq-Njtxtlso r/ Statin should be discussed if risk [...] Organization Address City/State/[place] [address] POCT Glucose (07/06/2017 1:09 AM EST) athologist Signature POC Glucose 121 65 - 199 [facility] mg/dL [facility] Comment: Supplemental ranges: <140 mg/dL before meals <180 mg/dL all other times of the day Specimen Anatomical Collection Method Collection Time Receive d Time (Source) Location / / Volume Laterality Blood specimen 07/06/2017 1:09 AM 017 1:09 (specimen) EST AM EST Daphne Shahid MD POINT OF CARE TEST ORDERABLE S Performing Organization Address City/State/ZIP Code Phon e Number [address] POCT Glucose (07/06/2017 12:06 AM EST) P athologist Signature POC Glucose 147 65 - 199 [place] mg/dL [facility] Comment: Supplemental ranges: [...] [facility] [address] (ABNORMAL) POCT Glucose (07/05/2017 10:56 PM EST) P athologist Signature POC Glucose 200 (H) 65 - 199 [facility] Comment: Supplemental ranges: <140 mg/dL before meals <180 mg/dL all other times of the day Specimen Anatomical Collection Method Collection Time Receive d Time (Source) Location / / Volume Laterality Blood specimen 07/05/2017 10:56 7 (specimen) PM EST 10:56 PM EST Daphne Shahid MD POINT OF CARE TEST ORDERABLE S Performing Organization Address City/State/[place] [address] (ABNORMAL) POCT Glucose (07/05/2017 10:05 PM EST) P athologist Signature POC Glucose 225 (H) 65 - 199 [facility]dL [facility] Comment: Supplemental ranges: <140 mg/dL before meals <180 mg/dL all other times of the day Specimen Anatomical Collection Method Collection Time Receive d Time (Source) Location / / Volume Laterality Blood specimen 07/05/2017 10:05 7 (specimen) PM EST 10:05 PM EST Daphne Shahid MD POINT OF CARE TEST ORDERABLE S Performing Organization Address City/State/[place] [address] (ABNORMAL) POCT Glucose (07/05/2017 9:02 PM EST) P athologist Signature POC Glucose 301 (H) 65 - 199 [facility] mg/dL [facility] Comment: Supplemental ranges: <140 mg/dL before meals <180 mg/dL all other times of the day Specimen Anatomical Collection Method Collection Time Receive d Time (Source) Location / / Volume Laterality Blood specimen 07/05/2017 9:02 PM 017 9:02 (specimen) EST PM EST Daphne Shahid MD POINT OF CARE TEST ORDERABLE S Performing Organization Address City/State/[place] [address] XR Chest PA or [...] 474 ms MUSE SYSTEM (Bezet) Calculated P Stoddard 50 degrees MUSE SYSTEM Calculated R Stoddard -28 degrees MUSE SYSTEM Calculated T Stoddard 90 degrees MUSE SYSTEM INTERPRETATION Sinus tachycardia [...] Neutr Abs (ANC) 9.08 (H) 1.70 - [facility] 6.10 [facility] x10(3)/[facility] L LABORATORY Lymphocytes % 7.0 % [facility]ORATORY Lymphocytes Abs 0.7 (L) 0.9 - 3.2 [facility] x10(3)/[facility] LABORATORY Monocytes % 3.7 % [facility] Monocyte Abs 0.4 0.3 - 0.9 [facility] x10(3)/[facility] LABORATORY Eosinophils % 0.1 % [facility] Eosinophils Abs 0.0 0.0 - 0.4 [facility] x10(3)/[facility] LABORATORY Basophils % 0.2 % [facility] Basophils Abs 0.0 0.0 - 0.1 [facility] x10(3)/[facility] LABORATORY Immature Gran % 0.60 % [facility] [...] Organization Address City/State/[place] [address] (ABNORMAL) Hemogram (07/05/2017 8:20 PM EST) Analysis Performed At Patho logist Time Signature WBC 10.3 (H) 4.0 - 9.5 [facility] x10(3)/[facility] LABORATORY RBC 4.64 4.58 - [facility] 5.54 [facility] x10(6)/[facility] LABORATORY Hemoglobin 14.1 13.7 - [facility] 16.5 gm/dL [facility] Hematocrit 40.8 40.5 - [facility] 48.5 % [facility] MCV 87.9 82.9 - [facility] 93.1 fL [facility] MCH 30.4 27.5 - [facility] 32.1 pg [facility] MCHC 34.6 32.0 - [facility] 35.7 gm/dL [facility] Platelets 204 145 - 357 [facility] x[facility](3[facility] LABORATORY RDWSD 46.1 (H) 36.0 - [facility] 45.0 [facility] LABORATORY RDWCV 14.5 (H) 11.4 - [facility] 13.8 % [facility] MPV 9.7 7.6 - 12.9 [facility] LABORATORY nRBC % Auto 0.0 % [facility] nRBC Abs Auto 0.000 0.000 - [facility] 0.000 [facility] x10(3)/[facility] LABORATORY Specimen Anatomical Collection Method Collection Time Receive d Time (Source) Location / / Volume Laterality Blood specimen 07/05/2017 8:20 PM 017 8:27 (specimen) EST PM EST Resulting Agency Comment Spec In Lab Daphne Shahid MD HEMATOLOGY ORDERABLES Performing Organization Address City/[facility]/[place] [address] APTT (07/05/2017 8:20 PM EST) P athologist Signature PTT 32 25 - 35 sec [facility] Comment: The recommended therapeutic range for fu ll dose, unfractionated heparin [place] [facility] is [...] Organization Address City/State/[place] [address] (ABNORMAL) Cardiac Enzymes (LEB/CGP) (07/05/2017 8:20 PM EST) P athologist Signature Troponin-T 2.11 (H) 0.00 - [facility] 0.00 ng/mL [facility] Comment: The 99th percentile for Troponin T is le ss than 0.01 ng/mL, any detectable cTnT concentration using this assay should be considered elevated. According to the third universal definit ion of myocardial infarction the following criteria with a clinical prese ntation consistent with acute myocardial ischemia meets the diagnosis for a myocardial infarction (UT). Detection of a rise and/or fall of [...] additional sample may be indicated. Reference: Third Dovray Definition of Myocardial Infarction. Journal of the [employer] 2012;60:1581-98 CK, Total 149 0 - 200 unit/L [facility]ORY Specimen Anatomical Collection Method Collection Time Receive d Time (Source) Location / / Volume Laterality Blood specimen 07/05/2017 8:20 PM 017 8:27 (specimen) EST PM EST Resulting Agency Comment Spec In Lab Daphne Shahid MD CHEMISTRY ORDERABLES Performing Organization Address City/[facility]/[place] [address] (ABNORMAL) Magnesium (07/05/2017 8:20 PM EST) P athologist Signature Magnesium 0.68 (L) 0.69 - 1.07 [facility] mmol/L [facility] Specimen Anatomical Collection Method Collection Time Receive d Time (Source) Location / / Volume Laterality Blood specimen 07/05/2017 8:20 PM 017 8:27 (specimen) EST PM EST Resulting Agency Comment Spec In Lab Daphne Shahid MD CHEMISTRY ORDERABLES Performing Organization Address City/State/[place] [address] (ABNORMAL) Basic Metabolic Panel (non-fasting) (07/05/2017 8:20 PM EST) P athologist Signature Glucose Lvl 321 (H) 65 - 199 [facility] mg/dL [facility] Comment: Diabetes: [...] or in patients with acute kidney failure. http://[employer]/DHnkdep [email or web address]://Ar[employer]/DHMCnkf Specimen Anatomical Collection Method Collection Time Receive d Time (Source) Location / / Volume Laterality Blood specimen 07/05/2017 8:20 PM 017 8:27 (specimen) EST PM EST Resulting Agency Comment Spec In Lab Daphne Shahid MD CHEMISTRY ORDERABLES Performing Organization Address City/State/ZIP Code Phon e Number [address] (ABNORMAL) POCT Glucose (07/05/2017 7:32 PM EST) P athologist Signature POC Glucose 296 (H) 65 - 199 [facility] mg/dL [facility] Comment: Supplemental ranges: <140 mg/dL before meals <180 mg/dL all other times of the day Specimen Anatomical Collection Method Collection Time Receive d Time (Source) Location / / Volume Laterality Blood specimen 07/05/2017 7:32 PM 017 7:32 (specimen) EST PM EST Daphne Shahid MD POINT OF CARE TEST ORDERABLE S Performing Organization Address City/State/ZIP Code Phon e Number [address] CARDIAC CATHETERIZATION (07/05/2017 6:47 PM EST) Specimen (Source) Anatomical Location Collection Method / Collectio n Time Received Time / Laterality Volume Narrative CARDIOMAC SYSTEM - 07/05/2017 7:27 PM ES T ?[facility] ? Cardiac Cathete rization/Intervention Report ? Patient Name: Natalya, Gregory ? Procedure Date: 07/05/2017 ? A #: [id number] ? Primary Physician: Clarisa, Jet T ? Case #: [id number] ? File Name: [id number] ? Catheterization Order Number: [id number] ? [facility] ? Final Report [place], [place] ? Patient Name: ? Gregory Natalya ?ID#: ?[id number] ? : ?1945 ? Procedure Date: ? [...] presented with: non -STEMI (w/i 7 days). Micronesian ?Cardiovascular Society angina c lass was IV. [...] angio graphy and IABP insertion in labor economist. ? Jet Mckenna, M.D. ? Electronically Signed by: Jet Robbins s, M.D. ? Report Finalized: 07/05/2017 ??19:23 ? Report Last Ammended: 10/26/2017 ??10:29 ? Procedure Note Jet Mckenna MD - 10/26/2017Formatt ing of this note might be different from the original. [facility] Cardiac Catheterization/Intervention Re port Patient Name: Gregory Hoang Procedure Date: 07/05/2017 A #: [id number] Primary Physician: Jet Mckenna Case #: [id number] File Name: [id number] Catheterization Order Number: [id number] [facility] Final Report [place], [place] Patient Name: Gregory Hoang ID#: [id number] : 1945 Procedure Date: July 05, [...] presented with: non-STEMI ( w/i 7 days). [employer] Society angina class was IV. No [...] angiograph y and IABP insertion in labor economist. Jet Mckenna M.D. Electronically Signed by: Jet [...] Mccollum ? (Age): 1945(72y) Med Rec#: ? [id number] ?Sex: ?M ? Site Loc: ? [facility] ?Ht / Wt: ??173(cm)/86(kg) Pt. Loc: ?[facility] ? BSA: ?2 Study Date: ?? 07/05/2017 ?Pt. Type: Inpatient Tape: ? Referring: Daphne Shahid ([id number]) Referring: MANDA ALCANTAR Reading: Blade Preston ([id number]) Commercial Horticulture Instructor: Dayami Paula BA, [facility] [...] E-wave Vmax ?0.8 ?m/sec ? MV deceleration [id number] ?msec ? MV A-wave Vmax ?0.8 ?m/sec [...] ? Mid-Inferior ?Akinetic ? Mid-Inferoseptal ?Hypokinetic ? [place]-Septal ? Akinetic ? [place]-Anterior ? Hypokinetic ? [place]-Lateral ?Hypokinetic ? [place]-Inferior ? Akinetic ? [place]-Tip ?Akinetic ? This report has been electronically sign ed by: _ Blade Preston MD ? 07/06/2017 08 :53:15 Images reviewed and interpretation verif ied [facility] Cardiac Ultrasound Laboratory Procedure Note Blade Preston MD - 07/06/2017Formatt ing of this note might be different from the original. Procedure: Transthoracic Echocardiogram Patient: NATALYA MCBRIDE(Age): [birth year]72y) Med Rec#: [id number] Sex: M [place] [facility] Ht / Wt: 173(cm)/86(kg) Pt. Loc: [facility] BSA: 2 Study Date: 07/05/2017 Pt. Type: Inpatie nt Tape: Referring: Daphne Shahid ([id number]) Referring: MANDA ALCANTAR Reading: Blade Preston ([id number]) Commercial Horticulture Instructor: Dayami Paula BA, [facility] [...] MV E-wave Vmax 0.8 m/sec MV deceleration [id number] msec MV A-wave Vmax 0.8 m/sec MV [...] Hypokinetic Mid-Posterolateral Hypokinetic Mid-Inferior Akinetic Mid-Inferoseptal Hypokinetic [place]-Septal Akinetic [place]-Anterior Hypokinetic [place]-Lateral Hypokinetic [place]-Inferior Akinetic [place]-Tip Akinetic This report has been electronically sign ed by: _ Blade Preston MD 07/06/2017 08:53:15 Images reviewed and interpretation verif ied [facility] Cardiac Ultrasound Laboratory Daphne Shahid MD ECHO ORDERABLES Performing Organization Address City/State/ZIP Code Phon e Number [facility] Differential, Automated (07/05/2017 4:55 PM EST) P athologist Signature Neutrophils % 77.0 % [facility] Neutr Abs (ANC) 5.26 1.70 - [facility] 6.10 [facility] x10(3)/[facility] LABORATORY Lymphocytes % 13.3 % [facility] Lymphocytes Abs 0.9 0.9 - 3.2 [facility] x10(3)/[facility] LABORATORY Monocytes % 8.2 % [facility] Monocyte Abs 0.6 0.3 - 0.9 [facility] x10(3)/[facility] LABORATORY Eosinophils % 0.7 % [facility] Eosinophils Abs 0.0 0.0 - 0.4 [facility] x10(3)/[facility] LABORATORY Basophils % 0.4 % [facility] Basophils Abs 0.0 0.0 - 0.1 [facility] x10(3)/[facility] LABORATORY Immature Gran % 0.40 [...] Melisa Gran Abs 0.03 0.00 - 0.04 x10(3)/[facility] LABORATORY Specimen Anatomical Collection Method Collection Time Receive d Time (Source) Location / / Volume Laterality Blood specimen 07/05/2017 4:55 PM 017 5:24 (specimen) EST PM EST Resulting Agency Comment Spec In Lab Daphne Shahid MD HEMATOLOGY ORDERABLES Performing Organization Address City/State/[place] [address] (ABNORMAL) Hemogram (07/05/2017 4:55 PM EST) Analysis Performed At Patho logist Time Signature WBC 6.8 4.0 - 9.5 [facility] x10(3)/[facility] LABORATORY RBC 4.67 4.58 - [facility] 5.54 [facility] x10(6)/[facility] LABORATORY Hemoglobin 14.0 13.7 - [facility] 16.5 gm/dL [facility] Hematocrit 41.0 40.5 - [facility] 48.5 % [facility] MCV 87.8 82.9 - [facility] 93.1 [facility] LABORATORY MCH 30.0 27.5 - [facility] 32.1 pg [facility] MCHC 34.1 32.0 - [facility] 35.7 gm/dL [facility] Platelets 197 145 - 357 [facility] x10(3)/[facility] LABORATORY RDWSD 46.4 (H) 36.0 - [facility] 45.0 [facility] LABORATORY RDWCV 14.5 (H) 11.4 - [facility] 13.8 % [facility] MPV 9.7 7.6 - 12.9 [facility] LABORATORY nRBC % Auto 0.0 % [facility] nRBC Abs Auto 0.000 0.000 - [facility] 0.000 [facility] x10(3)/[facility] LABORATORY Specimen Anatomical Collection Method Collection Time Receive d Time (Source) Location / / Volume Laterality Blood specimen 07/05/2017 4:55 PM 017 5:24 (specimen) EST PM EST Resulting Agency Comment Spec In Lab Daphne Shahid MD HEMATOLOGY ORDERABLES Performing Organization Address City/[facility]/[place] [address] (ABNORMAL) Cardiac Enzymes (LEB/CGP) (07/05/2017 4:55 PM EST) athologist Signature Troponin-T 1.69 (H) 0.00 - [facility] 0.00 ng/mL [facility] Comment: The 99th percentile for Troponin T is le ss than 0.01 ng/mL, any detectable cTnT concentration using this assay should be considered elevated. According to the third universal definit ion of myocardial infarction the following criteria with a clinical prese ntation consistent with acute myocardial ischemia meets the diagnosis for a myocardial infarction (UT). Detection of a rise and/or fall of [...] additional sample may be indicated. Reference: Third Dovray Definition of Myocardial Infarction. Journal of the [employer] 2012;60:1581-98 CK, Total 191 0 - 200 unit/L [facility] Specimen Anatomical Collection Method Collection Time Receive d Time (Source) Location / / Volume Laterality Blood specimen 07/05/2017 4:55 PM 017 5:56 (specimen) EST PM EST Resulting Agency Comment Spec In Lab Daphne Shahid MD CHEMISTRY ORDERABLES Performing Organization Address City/State/[place] [address] (ABNORMAL) pro-Brain Natriuretic Peptide (07/05/2017 4:55 PM EST) athologist Signature ProBNP 1,598 (H) <=125 [facility] pg/mL [facility] Specimen Anatomical Collection Method Collection Time Receive d Time (Source) Location / / Volume Laterality Blood specimen 07/05/2017 4:55 PM 017 5:24 (specimen) EST PM EST Resulting Agency Comment Spec In Lab Daphne Shahid MD CHEMISTRY ORDERABLES Performing Organization Address City/State/ZIP Code Phon e Number [address] Magnesium (07/05/2017 4:55 PM EST) athologist Signature Magnesium 0.78 0.69 - 1.07 [facility] mmol/L [facility] Specimen Anatomical Collection Method Collection Time Receive d Time (Source) Location / / Volume Laterality Blood specimen 07/05/2017 4:55 PM 017 5:24 (specimen) EST PM EST Resulting Agency Comment Spec In Lab Daphne Shahid MD CHEMISTRY ORDERABLES Performing Organization Address City/[facility]/[place] [address] (ABNORMAL) Basic Metabolic Panel (non-fasting) (07/05/2017 4:55 PM EST) athologist Signature Glucose Lvl 230 (H) 65 - 199 [facility] mg/dL [facility] Comment: Diabetes: [...] or in patients with acute kidney failure. http://[employer]/DHnkdep http://[employer]/DHMCnkf Specimen Anatomical Collection Method Collection Time Receive d Time (Source) Location / / Volume Laterality Blood specimen 07/05/2017 4:55 PM 017 5:24 (specimen) EST PM EST Resulting Agency Comment Spec In Lab Daphne Shahid MD CHEMISTRY ORDERABLES Performing Organization Address City/[facility]/[place] [address] (ABNORMAL) APTT (07/05/2017 4:55 PM EST) P athologist Signature PTT 41 (H) 25 - 35 sec [facility] Comment: The recommended therapeutic range for fu ll dose, unfractionated heparin [place] [facility] is [...] Shahid MD HEMATOLOGY ORDERABLES Performing Organization Address City/[facility]/[place] [address] (ABNORMAL) POCT Glucose (07/05/2017 4:53 PM EST) P athologist Signature POC Glucose 208 (H) 65 - 199 [facility] mg/dL [facility] Comment: Supplemental ranges: <140 mg/dL before meals <180 mg/dL all other times of the day Specimen Anatomical Collection Method Collection Time Receive d Time (Source) Location / / Volume Laterality Blood specimen 07/05/2017 4:53 PM 017 4:53 (specimen) EST PM EST Daphne Shahid MD POINT OF CARE TEST ORDERABLE S Performing Organization Address City/State/ZIP Code Phon e Number [address] EKG 12 Lead (07/05/2017 4:32 PM EST) Component Value Ref Range Test Analysis Performed Pathologis t Method Time At Signature Ventricular rate 97 BPM MUSE SYSTEM Atrial Rate 97 BPM MUSE SYSTEM P-R Interval 148 ms MUSE SYSTEM QRS Duration 96 ms MUSE SYSTEM Q-T Interval 364 ms MUSE SYSTEM QTC Calculated 462 ms MUSE SYSTEM (Bezet) Calculated P Stoddard 48 degrees MUSE SYSTEM Calculated R Stoddard -33 degrees MUSE SYSTEM Calculated T Stoddard 98 degrees MUSE SYSTEM INTERPRETATION Normal sinus [...] Coronary atherosclerosis of unspecified type of vessel, tejon or graft Cardiomyopathy, ischemic Other specified forms [...] post-op day 1 in the AM Give WY if unable to take PO, Routine Given [...] in dextrose 5% 250 mL EST infusion (PUSHER OPERATOR) CONTINUOUS PRN, Starting on Wed07/05/17 at [...] post-op day 1 in the AM Give W[place] if unable to take PO, Routine atorvastatin [...] Jacobson RN)[id number] (New Bag - Provider: Myrna Yonug, VAMSI)1002 (Stopped - Provider: Myrna Young, VAMSI) [...] RN) 0922 (Given - Provider: Myrna E [place], RN) 20 mEq, Oral, DAILY, First dose [...] post-op day 1 in the AM Give WY if unable to take PO
Routine Group [...]
Routine documented in this encounter Care Teams Cookie Breaker Relationship Specialty Start Date End Date Lovely Vicente MD PCP - General 04/16/[address] [place] [address] [address] [place] [address] documented as of this encounter
--- OUTSIDE RECORDS SUMMARY | 2022-03-23 09:44 | XMS_ITS | Encounter Summary ---
:1945 Author Organization [facility] [place] [address] Care Team Providers Name Role Phone Lovely Vicente MD Primary Care Provider Reason for Visit Reason Onset Date Comments Pre Procedure Call 12/02/2016 Encounter Details Date Type Department Care Team Description 12/02/2016 Telephone Dermatology at [facility] Mira James LPN Pre Procedure Call [address] [place] [address] Social History Tobacco Use Types Packs/Day [...] [facility] [address] [place], [place] [address] (Wo lissa) 05/28/2022 Appointment Cardiology Zulma Dolan MD [facility] [address] [place] 0[address] (Wo rk) 05/28/2022 Laboratory Appointment Lab 05/28/2022 Office Visit Zulma Garrison MD [facility] [place] [address] Liz Poole PA [facility] [place] [address] 06/10/2022 Office Visit Dermatology Laura Scherer MD [facility] [address] [place], [place] [address] (Wo rk) documented as of this encounter Visit Diagnoses Not on filedocumented in this encounter Care Teams Trucksmith Relationship Specialty Start Date End Date Lovely Vicente MD PCP - General 04/16/15 [facility] [address] [place] [address] documented as of this encounter
--- OUTSIDE RECORDS SUMMARY | 2022-03-23 09:45 | XMS_ITS | Encounter Summary ---
:1945 Author Organization [facility] [place] [address] Care Team Providers Name Role Phone Angela Holliday APRN Primary Care Provider Encounter Details Date Type Department Care Team Description 03/28/2013 Surgery Main Operating Room Mesha Mcknight, THY[facility]IDECTOMY[facility] [address] [place]idd[place] [address] [place] [address] [phone] (Wo rk) Social History Tobacco Use Types [...] please call the General Surgery nurse at [phone], since this may mean that you need morecalcium. Follow-up Appointment: Will be scheduled with Dr. Mcknight in 6 weeks Date and time as well as any required labs will be mailed to you Please call [phone] to confirm date and time of your [...] by calcium supplementation. Phone number for questions: [phone] before 5 PM weekdays [phone] after 5 PM and on weekends/holidays Please [...] is a 68 y.o. male presents to [facility] today for total thyroidectomy. See [...] MD - 03/28/2013 3:43 PM EDT [facility] Operative Note Patient Name: Gregory Fatima : [id number] MR#: [id number] Case Date: 03/28/2013 Surgeon: Surgeon(s) and Role: [...] patient was extubated and taken to the [facility] in stable condition. At the [...] Operative Note Patient Name: Gregory Fatima : [id number] MR#: [id number] Case Date: 03/28/2013 Surgeon: Surgeon(s) and Role: [...] MD [facility] [address] [place], [place] [address] (Wo rk) 05/28/2022 Appointment Cardiology Zulma Dolan MD [facility] [address] [place] [address] (Wo rk) 05/28/2022 Laboratory Appointment Lab 05/28/2022 Office Visit Cardiology Zulma Dolan MD [facility] [place] [address] Liz Poole PA [facility] [place] [address] 06/10/2022 Office Visit Dermatology Laura Scherer MD [facility] ER DR [address]-DERMAT OLOGY [place], [place] [address] (Wo rk) documented as of [...] 332 (H) 60 - 199 CERNER mg/dL [facility] Comment: Supplemental ranges: <110 mg/dL before meals <200 mg/dL all other times of the day Specimen Anatomical Collection Method Collection Time Receive d Time (Source) Location / / Volume Laterality Blood specimen 03/29/2013 8:08 AM 013 8:08 (specimen) EDT AM EDT Mesha Mcknight MD POINT OF CARE TEST ORDERABLE S Performing Organization Address City/State/[place] [address] CERNER MILLENNIUM (ABNORMAL) POCT Glucose (03/29/2013 4:04 AM EDT) athologist Signature POC Glucose 247 (H) 60 - 199 CERNER mg/dL [facility] Comment: Supplemental ranges: <110 mg/dL before meals <200 mg/dL all other times of the day Specimen Anatomical Collection Method Collection Time Receive d Time (Source) Location / / Volume Laterality Blood specimen 03/29/2013 4:04 AM 013 4:04 (specimen) EDT AM EDT Mesha Mcknight MD POINT OF CARE TEST ORDERABLE S Performing Organization Address City/State/ZIP Code Phon e Number [address] CERNER MILLENNIUM (ABNORMAL) POCT [...] CARE TEST ORDERABLE S Performing Organization Address City/[facility]/ZIP Code Phon e Number [address] CERNER MILLENNIUM (ABNORMAL) POCT [...] CARE TEST ORDERABLE S Performing Organization Address City/[facility]/ZIP Code Phon e Number [address] CERNER MILLENNIUM (ABNORMAL) POCT [...] Address City/State/[place] [address] CERNER MILLENNIUM (ABNORMAL) POCT [...] CARE TEST ORDERABLE S Performing Organization Address City/[facility]/ZIP Code Phon e Number [address] CERNER MILLENNIUM (ABNORMAL) POCT [...] CARE TEST ORDERABLE S Performing Organization Address City/[facility]/ZIP Code Phon e Number [address] CERNER MILLENNIUM (ABNORMAL) POCT Glucose (03/28/2013 2:49 PM EDT) P athologist Signature POC Glucose 319 (H) 60 - 199 CERNER mg/dL [facility] Comment: Supplemental ranges: <110 mg/dL before meals <200 mg/dL all other times of the day Specimen Anatomical Collection Method Collection Time Receive d Time (Source) Location / / Volume Laterality Blood specimen 03/28/2013 2:49 PM 013 2:49 (specimen) EDT PM EDT Mesha Mcknight MD POINT OF CARE TEST ORDERABLE S Performing Organization Address City/[facility]/ZIP Code Phon e Number [address] [facility] Specimen to Pathology (surgical or [...] [facility]/ZIP Code Phon e Number [address] [facility] Pathology Addendum Report (03/28/2013 12:03 PM EDT) Component Value Ref Test Analysis Performed At Patholo gist Range Method Time Signature Addendum CERNER Report ? [facility] ? Provider: ?? MESHA MCKNIGHT Pt. Name: ?? GREGORY FATIMA ? Acc #: ?[id number] ?Pt. MRN: ?[id number] ? Col Date: ?? 03/28/2013 ?/Sex: ?1945,(68 [...] Address City/State/[place] [address] [facility] Surgical Pathology Report (03/28/2013 12:03 PM EDT) Component Value Ref Test Analysis Performed At [facility] Range Method Time Signature Surgical [facility] Pathology ? [facility] Report ? Provider: ?? MESHA MCKNIGHT Pt. Name: ?? GREGORY FATIMA ? Acc #: ?[id number] ?Pt. MRN: ?[id number] ? Col Date: ?? 03/28/2013 ?/Sex: ?1945,(68 [...] hemorrhage and ? calcifications. ? [facility] ? Provider: ?? MESHA MCKNIGHT Pt. Name: ?? GREGORY FATIMA ? Acc #: ?[id number] ?Pt. MRN: ?[id number] ? Col Date: ?? 03/28/2013 ?/Sex: ?1945,(68 years),Male ? Rec Date: ?? 03/28/2013 ?LOC: ?[facility] ? SURGICAL PATHOLOGY ? SECTIONS/PROCESSING: Margin Clerk sections are subm itted. (R6) ? [...] Address City/State/[place] [address] CERNER MILLENNIUM Frozen Section Report (03/28/2013 12:03 PM EDT) Component Value Ref Test Analysis Performed At [facility] Range Method Time Signature Frozen CERNER Section ? [facility] Report ? Provider: ?? MESHA MCKNIGHT Pt. Name: ?? GREGORY FATIMA ? Acc #: ?[id number] ?Pt. MRN: ?[id number] ? Col Date: ?? 03/28/2013 ?/Sex: ?1945,(68 [...] Performing Organization Address [facility] [place] [address] CERNER MILLENNIUM POCT Glucose [...] Performing Organization Address [facility]/ZIP [facility] [place] [address] CERNER MILLENNIUM Specimen to [...] [facility]/State/ZIP Code Phon e Number [address] [facility] MILLENNIUM Antibody screen (03/28/2013 9:37 AM [...] MD BLOOD BANK ORDERABLES Performing Organization Address City/[facility]/ZIP Code Phon e Number [address] [facility] ABO/Rh Typing (03/28/2013 9:37 AM EDT) P athologist Signature ABORh Type O Pos [facility] Specimen Anatomical Collection Method Collection Time Receive d Time (Source) Location / / Volume Laterality Blood specimen 03/28/2013 9:37 AM 013 9:37 (specimen) EDT AM EDT Resulting Agency Comment Spec In Lab Mesha Mcknight MD BLOOD BANK ORDERABLES Performing Organization Address City/[facility]/ZIP Code Phon e Number [address] [facility] Differential, Automated (03/28/2013 9:34 AM EDT) P [...] Address City/State/[place] [address] CERNER MILLENNIUM (ABNORMAL) Basic [...] supplied above were not validated at [facility]. Results from pediatri c patients should be [...] City/State/ZIP Code Phon e Number [place] [id number] CERNER MILLENNIUM (ABNORMAL) CBC [...] MCHC 33.7 32.0 - CERNER 36.5 gm/dL [facility] Platelets 161 145 - 370 CERNER x10(3)/mcL MILLENNIUM RDWSD 43.7 35.0 - CERNER 46.0 fL ENNIUM RDWCV 14.2 10.9 - CERNER 14.4 % [facility] MPV 9.3 9.0 - 12.0 CERNER fL [facility] Specimen Anatomical Collection Method Collection Time Receive d Time (Source) Location / / Volume Laterality Blood specimen 03/28/2013 9:34 AM 013 9:38 (specimen) EDT AM EDT Resulting Agency Comment Spec In Lab Mesha Mcknight MD HEMATOLOGY ORDERABLES Performing Organization Address City/State/ZIP Code Phon e Number [address] [facility] POCT Glucose (03/28/2013 9:17 AM EDT) athologist Signature POC Glucose 108 60 - 199 CERNER mg/dL [facility] Comment: Supplemental ranges: <110 mg/dL before meals <200 mg/dL all other times of the day Specimen Anatomical Collection Method Collection Time Receive d Time (Source) Location / / Volume Laterality Blood specimen 03/28/2013 9:17 AM 013 9:17 (specimen) EDT AM EDT Mesha Mcknight MD POINT OF CARE TEST ORDERABLE S Performing Organization Address City/[facility]/ZIP Code Phon e Number [address] [facility] Specimen to Pathology (surgical or derm) (03/28/2013 8:55 AM EDT) Specimen Anatomical Collection Method Collection Time Receive d Time (Source) Location / / Volume Laterality AP Specimen 03/28/2013 8:55 AM 3 8:54 EDT AM EDT Narrative [facility] - 03/28/2013 8:55 AM E DT Specimen requisition ordered. ??Separate Pathology report to follow Mesha Mcknight MD PATHOLOGY/CYTOLOGY ORDERABLE S Performing Organization Address City/[facility]/[place] [address] [facility] GRISELDAENNIUM documented in this encounter Visit [...] RN) 0900 (Given - Provider: Radha Yao [facility], RN) 2.5 mg, Oral, DAILY, First [...] override documented in this encounter Care Teams Technology Integration Specialist Relationship Specialty Start Date End Date Angela Holliday APRN PCP - General 01/25/13 04/15/[address] [place] [address] documented as of this encounter
--- OUTSIDE RECORDS SUMMARY | 2022-03-23 09:45 | XMS_ITS | Encounter Summary ---
:1945 Author Organization [facility] Address [facility] [place] [address] Care Team Providers Name Role Phone Unknown Primary Care Provider Unavailable Reason for Visit Reason Comments Skin Check Encounter Details Date Type Department Care Team Description 10/04/2012 Follow-Up Dermatology at Rigoberto Forman soriasis (Primary Dx); Abdelrahman HOOPER MD Neoplasm of unspecified nature of bone, soft tissue, and skin; [address] [facility] Skin lesion of chest wall; [place] [address] Seborrheic psoriasis- scalp and ingtergl uteal area [phone] [facility] [place], [place] [address] (Wo rk) Social History Tobacco [...] changes: Rigoberto Garcia MD Section of Dermatology [facility] documented in this encounter Plan of Treatment Upcoming Encounters Date Type Specialty Care Team Description 03/26/2022 Office Visit Cardiology Vitaliy Nobles MD [facility] [address] [place], [place] [address] (Wo rk) 05/28/2022 Appointment Cardiology Zulma Dolan MD [facility] [place], [place] [address] (Wo rk) 05/28/2022 Laboratory Appointment Lab 05/28/2022 Office Visit Cardiology Zulma Dolan MD [facility] [place] [address] [facility] [place] [address] 06/10/2022 Office Visit Dermatology Laura Scherer MD [facility] DR TE[address] GR-DERMAT OLOGY [place], [place] [address] (Wo rk) documented as of [...] Component Value Ref Test Analysis Performed At [facility] Range Method Time Signature Surgical CERNER Pathology ? [facility] Report ? Provider: ?? DEION III, RIGOBERTO Pt. Name: ?? DON HOANG ?A ? Acc #: ?[id number] ? Pt. ? Col Date: ?? 3 [...] / Volume Laterality 10/04/2012 12:43 PM EDT Riogberto Garcia III, MD PATHOLOGY/CYTOLOGY ORDERABLE S Performing Organization Address City/[facility]/ZIP Code Phon e Number [address] [facility] Specimen to Pathology (NON-OR) (10/04/2012 9:55 AM EDT) Specimen Anatomical Collection Method Collection Time Receive d Time (Source) Location / / Volume Laterality AP Specimen 10/04/2012 9:55 AM 201 3 9:56 EDT AM EDT Narrative [facility] - 10/04/2012 9:56 AM E DT Specimen requisition ordered. ??Separate Pathology report to follow Rigoberto Garcia III, MD PATHOLOGY/CYTOLOGY ORDERABLE S Performing Organization Address City/[facility]/ZIP [facility] [place] [address] [facility] documented in this encounter Visit Diagnoses Diagnosis Psoriasis - Primary Other psoriasis Neoplasm of unspecified nature of bone, soft tissue, and skin Skin lesion of chest wall Unspecified disorder of skin and subcuta neous tissue Seborrheic psoriasis- scalp and ingtergl uteal area Other psoriasis documented in this encounter Care Teams Tube Knitter Relationship Specialty Start Date End Date Unknown PCP - General 10/04/12 01/24/13 None documented as of this encounter
--- OUTSIDE RECORDS SUMMARY | 2022-03-23 09:45 | XMS_ITS | Encounter Summary ---
:1945 Author Organization [facility] [place] [address] Care Team Providers Name Role Phone MiyaAngela STACIE Primary Care Provider Reason for Visit Reason Comments Urinary Retention Encounter Details Date Type Department Care Team Description 05/16/2013 Follow-Up Urology at [facility] Blade Smith, Retention of urine [facility] (Primary Dx) [place] [address] UROLOGY DEPT [place] [id number] (Wo rk) Social History Tobacco Use Types [...] [facility] [address] TADE[address] [place], [place] [address] (Wo rk) 05/28/2022 Appointment Cardiology Zulma Dolan MD [facility] [place], [place] [address] (Wo rk) 05/28/2022 Laboratory Appointment Lab 05/28/2022 Office Visit Cardiology Zulma Dolan MD [facility] [address] Liz Poole PA [facility] [place] [address] 06/10/2022 Office Visit Dermatology Laura Scherer MD 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
--- OUTSIDE RECORDS SUMMARY | 2022-03-23 09:45 | XMS_ITS | Encounter Summary ---
:1945 [place] [address] Care Team Providers Name Role Phone Holley Hollidayica STACIE Primary Care Provider Encounter Details Date Type Department Care Team Description 03/28/2013 - [facility] 03/29/2013 Barbara Gomes MD Dx) [facility] [place] [id number] [phone] Social History Tobacco Use Types Packs/Day Years [...] please call the General Surgery nurse at [phone], since this may mean that you need morecalcium. Follow-up Appointment: Will be scheduled with Dr. Mcknight in 6 weeks Date and time as well as any required labs will be mailed to you Please call [phone] to confirm date and time of your [...] by calcium supplementation. Phone number for questions: [phone] before 5 PM weekdays [phone] after 5 PM and on weekends/holidays Please follow up with Urology as per their recommendations for Bob removal AttachmentsThe following attachments cannot be sent through Care Everywhere. THYROIDECTOMY: WHAT TO EXPECT AT HOME (KYRGYZ)URINARY CATHETER CARE: AFTER YOUR VISIT (KYRGYZ)documented in this encounter Medications at Time of [...] a 68 y.o. male presents to [facility] today for total thyroidectomy. See full [...] Operative Note Patient Name: Gregory Fatima : [id number] MR#: [id number] Case Date: 03/28/2013 Surgeon: Surgeon(s) and Role: [...] was extubated and taken to the [facility] in stable condition. At the end [...] Operative Note Patient Name: Gregory Fatima : [id number] MR#: [id number] Case Date: 03/28/2013 Surgeon: Surgeon(s) and Role: [...] Nobles MD [facility] DR [place]LE [place], [place] 0[address] (Wo rk) 05/28/2022 Appointment Cardiology Zulma Dolan MD [facility] [address] [place] 0375 (Wo rk) 05/28/2022 Laboratory Appointment Lab 05/28/2022 Office Visit Cardiology Zulma [place] [address] Liz Poole PA [facility] [place] [address] 06/10/2022 Office Visit Dermatology Laura Scherer MD [facility] ER DR [address]-DERMAT OLOGY [place], [place] 0[address] (Wo rk) documented as of [...] 332 (H) 60 - 199 CERNER mg/dL [facility] Comment: Supplemental ranges: <110 mg/dL before meals <200 mg/dL all other times of the day Specimen Anatomical Collection Method Collection Time Receive d Time (Source) Location / / Volume Laterality Blood specimen 03/29/2013 8:08 AM 013 8:08 (specimen) EDT AM EDT Mesha Mcknight MD POINT OF CARE TEST ORDERABLE S Performing Organization Address City/State/[place] [address] CERNER MILLENNIUM (ABNORMAL) POCT Glucose (03/29/2013 4:04 AM EDT) athologist Signature POC Glucose 247 (H) 60 - 199 CERNER mg/dL [facility] Comment: Supplemental ranges: <110 mg/dL before meals <200 mg/dL all other times of the day Specimen Anatomical Collection Method Collection Time Receive d Time (Source) Location / / Volume Laterality Blood specimen 03/29/2013 4:04 AM 013 4:04 (specimen) EDT AM EDT Mesha Mcknight MD POINT OF CARE TEST ORDERABLE S Performing Organization Address City/State/ZIP Code Phon e Number [address] CERNER MILLENNIUM (ABNORMAL) POCT [...] [facility]/ZIP Code Phon e Number [address] CERNER MILLENNIUM (ABNORMAL) POCT [...] [facility]/ZIP Code Phon e Number [address] CERNER MILLENNIUM (ABNORMAL) POCT [...] Organization Address City/State/[place] [address] CERNER MILLENNIUM (ABNORMAL) POCT [...] [facility]/ZIP Code Phon e Number [address] CERNER MILLENNIUM (ABNORMAL) POCT [...] [facility]/ZIP Code Phon e Number [address] CERNER MILLENNIUM (ABNORMAL) POCT Glucose (03/28/2013 2:49 PM EDT) P athologist Signature POC Glucose 319 (H) 60 - 199 CERNER mg/dL [facility] Comment: Supplemental ranges: <110 mg/dL before meals <200 mg/dL all other times of the day Specimen Anatomical Collection Method Collection Time Receive d Time (Source) Location / / Volume Laterality Blood specimen 03/28/2013 2:49 PM 013 2:49 (specimen) EDT PM EDT Mesha Mcknight MD POINT OF CARE TEST ORDERABLE S Performing Organization Address City/[facility]/ZIP Code Phon e Number [address] [facility] Specimen to Pathology (surgical or [...] [facility]/ZIP Code Phon e Number [address] [facility] Pathology Addendum Report (03/28/2013 12:03 PM EDT) Component Value Ref Test Analysis Performed At Patholo gist Range Method Time Signature Addendum CERNER Report ? [facility] ? Provider: ?? MESHA MCKNIGHT Pt. Name: ?? GREGORY FATIMA ? Acc #: ?[id number] ?Pt. MRN: ?[id number] ? Col Date: ?? 03/28/2013 ?/Sex: ?1945,(68 [...] Organization Address City/State/[place] [address] [facility] Surgical Pathology Report (03/28/2013 12:03 PM EDT) Component Value Ref Test Analysis Performed At [facility] Range Method Time Signature Surgical [facility] Pathology ? [facility] Report ? Provider: ?? MESHA MCKNIGHT Pt. Name: ?? GREGORY FATIMA ? Acc #: ?[id number] ?Pt. MRN: ?[id number] ? Col Date: ?? 03/28/2013 ?/Sex: ?1945,(68 [...] areas of hemorrhage and ? calcifications. ? [facility] ? Provider: ?? MESHA MCKNIGHT Pt. Name: ?? GREGORY FATIMA ? Acc #: ?[id number] ?Pt. MRN: ?[id number] ? Col Date: ?? 03/28/2013 ?/Sex: ?1945,(68 years),Male ? Rec Date: ?? 03/28/2013 ?LOC: ?[facility] ? SURGICAL PATHOLOGY ? SECTIONS/PROCESSING: Template Worker sections are subm itted. (R6) ? [...] Organization Address City/State/[place] [address] CERNER MILLENNIUM Frozen Section Report (03/28/2013 12:03 PM EDT) Component Value Ref Test Analysis Performed At [facility] Range Method Time Signature Frozen CERNER Section ? [facility] Report ? Provider: ?? MESHA MCKNIGHT Pt. Name: ?? GREGORY FATIMA ? Acc #: ?[id number] ?Pt. MRN: ?[id number] ? Col Date: ?? 03/28/2013 ?/Sex: ?1945,(68 [...] S Performing Organization Address [facility] [place] [address] CERNER MILLENNIUM POCT Glucose [...] S Performing Organization Address [facility]/ZIP [facility] [place] [address] CERNER MILLENNIUM Specimen to [...] S Performing Organization Address [facility]/State/ZIP Code Phon e Number [address] [facility] MILLENNIUM Antibody screen (03/28/2013 9:37 AM [...] [facility]/ZIP Code Phon e Number [address] [facility] ABO/Rh Typing (03/28/2013 9:37 AM EDT) P athologist Signature ABORh Type O Pos [facility] Specimen Anatomical Collection Method Collection Time Receive d Time (Source) Location / / Volume Laterality Blood specimen 03/28/2013 9:37 AM 013 9:37 (specimen) EDT AM EDT Resulting Agency Comment Spec In Lab Mesha Mcknight MD BLOOD BANK ORDERABLES Performing Organization Address City/[facility]/ZIP Code Phon e Number [address] [facility] Differential, Automated (03/28/2013 9:34 AM EDT) P [...] Organization Address City/State/[place] [address] CERNER MILLENNIUM (ABNORMAL) Basic [...] City/State/ZIP Code Phon e Number [place] [phone] CERNER MILLENNIUM (ABNORMAL) CBC [...] MCHC 33.7 32.0 - CERNER 36.5 gm/dL [facility] Platelets 161 145 - 370 CERNER x10(3)/mcL MILLENNIUM RDWSD 43.7 35.0 - CERNER 46.0 fL [facility] RDWCV 14.2 10.9 - CERNER 14.4 % [facility] MPV 9.3 9.0 - 12.0 CERNER fL [facility] Specimen Anatomical Collection Method Collection Time Receive d Time (Source) Location / / Volume Laterality Blood specimen 03/28/2013 9:34 AM 013 9:38 (specimen) EDT AM EDT Resulting Agency Comment Spec In Lab Mesha Mcknight MD HEMATOLOGY ORDERABLES Performing Organization Address City/State/ZIP Code Phon e Number [address] [facility] POCT Glucose (03/28/2013 9:17 AM EDT) athologist Signature POC Glucose 108 60 - 199 CERNER mg/dL [facility] Comment: Supplemental ranges: <110 mg/dL before meals <200 mg/dL all other times of the day Specimen Anatomical Collection Method Collection Time Receive d Time (Source) Location / / Volume Laterality Blood specimen 03/28/2013 9:17 AM 013 9:17 (specimen) EDT AM EDT Mesha Mcknight MD POINT OF CARE TEST ORDERABLE S Performing Organization Address City/[facility]/ZIP Code Phon e Number [address] [facility] Specimen to Pathology (surgical or derm) (03/28/2013 8:55 AM EDT) Specimen Anatomical Collection Method Collection Time Receive d Time (Source) Location / / Volume Laterality AP Specimen 03/28/2013 8:55 AM 3 8:54 EDT AM EDT Narrative [facility] - 03/28/2013 8:55 AM E DT Specimen requisition ordered. ??Separate Pathology report to follow Mesha Mcknight MD PATHOLOGY/CYTOLOGY ORDERABLE S Performing Organization Address City/[facility]/[place] [address] [facility] documented in this encounter Visit Diagnoses [...] RN) 0900 (Given - Provider: Radha Yao [facility], RN) 2.5 mg, Oral, DAILY, First [...] mg (CANCELED) 1605 (Given - Provider: Angela Beraux RN) 0900 (Given - Provider: Radha christine [...] headache) 0738 (Given - Provider: Radha Yao AVMSI oseguera) 650 mg, Oral, EVERY 4 HOURS [...] override documented in this encounter Care Teams Sciences Dean Relationship Specialty Start Date End Date Angela Holliday APRN PCP - General 01/25/13 04/15/15 [address] [place] [address] documented as of this encounter
--- OUTSIDE RECORDS SUMMARY | 2022-03-23 09:45 | XMS_ITS | Encounter Summary ---
:1945 Author Organization [facility] [place] [address] Care Team Providers Name Role Phone MiyaAngela STACIE Primary Care Provider Reason for Visit Reason Onset Date Comments Advice Only 03/31/2013 Encounter Details Date Type Department Care Team Description 03/31/2013 Telephone Urology at [facility] Daniele Trejo III, MD Advice Only One [facility] [place] [address] [place] [id number] [phone] (Wo rk) Social History Tobacco Use Types [...] Vitaliy Nobles MD [facility] CARDIOLOGY [place], [place] [address] (Wo rk) 05/28/2022 Appointment Cardiology Zulma Dolan MD [facility] [place], [place] [address] (Wo rk) 05/28/2022 Laboratory Appointment Lab 05/28/2022 Office Visit Cardiology Zulma Dolan MD [facility] [place] [address] Liz Poole PA [facility] [place] [address] 06/10/2022 Office Visit Dermatology Laura Scherer MD [facility] DR TEJA GR-DERMAT [place], [place] 0[address] (Wo rk) documented as of this encounter Visit Diagnoses Not on filedocumented in this encounter Care Teams Payroll And Benefits Coordinator Relationship Specialty Start Date End Date Angela Holliday APRN PCP - General 01/25/13 04/15/[address] [place] [address] documented as of this encounter
--- OUTSIDE RECORDS SUMMARY | 2022-03-23 09:45 | XMS_ITS | Encounter Summary ---
:1945 Author Organization [facility] [place] [address] Care Team Providers Name Role Phone Angela Holliday APRN Primary Care Provider Encounter Details Date Type Department Care Team Description 03/15/2013 Telephone General Surgery at [facility] Maddison Key, [place] [address] Social History Tobacco Use Types Packs/Day Years Used Date Former Smoker Alcohol Use Standard Drinks/Week Comments No 0 (1 standard drink = 0.6 oz pure alcoho l) Sex Assigned at Date Recorded Not on file documented as of this encounter Miscellaneous Notes Telephone Encounter - aMddison Key RN - 03/15/2013 8:55 AM EDT [...] MD [facility] DR TADEO [place], [place] [address] (Wo rk) 05/28/2022 Appointment Cardiology Zulma Dolan MD [facility] [address] [place], [place] [address] (Wo rk) 05/28/2022 Laboratory Appointment Lab 05/28/2022 Office Visit Cardiology Zulma Dolan MD [facility] [place] [address] Liz Poole PA [facility] [place] [address] 06/10/2022 Office Visit Dermatology Laura Scherer MD [facility] DR TEJA GR-DERMAT [place], [place] [address] (Wo rk) documented as of this encounter Visit Diagnoses Not on filedocumented in this encounter Care Teams Traffic Ii Manager Relationship Specialty Start Date End Date Angela Holliday APRN PCP - General 01/25/13 04/15/[address] [place] [address] documented as of this encounter
--- OUTSIDE RECORDS SUMMARY | 2022-03-23 09:45 | XMS_ITS | Encounter Summary ---
:1945 Author Organization [facility] [place] [address] Care Team Providers Name Role Phone Angela Holliday APRN Primary Care Provider Encounter Details Date Type Department Care Team Description 03/30/2013 Telephone General Surgery at [facility] Cliff Nevarez, [place] [address] Social History Tobacco Use Types Packs/Day [...] Nobles MD [facility] CARDIOLOGY [place], [place] 0[address] (Wo rk) 05/28/2022 Appointment Cardiology Zulma Dolan MD [facility] [address] [place], [place] [address] (Wo rk) 05/28/2022 Laboratory Appointment Lab 05/28/2022 Office Visit Cardiology Zulma Dolan MD [facility] [place] [address] Liz Poole PA [facility] [place] [address] 06/10/2022 Office Visit Dermatology Laura Scherer MD [facility] DR TEJA GR-DERMAT [place], [place] [address] (Wo rk) documented as of this encounter Visit Diagnoses Not on filedocumented in this encounter Care Teams Diathermy Equipment Repairer Relationship Specialty Start Date End Date Angela Holliday APRN PCP - General 01/25/13 04/15/[address] [place] [address] documented as of this encounter
--- OUTSIDE RECORDS SUMMARY | 2022-03-23 09:45 | XMS_ITS | Encounter Summary ---
:1945 Author Organization [facility] [place] [address] Care Team Providers Name Role Phone Angela Holliday STACIE Primary Care Provider Encounter Details Date Type Department Care Team Description 04/04/2013 Telephone Urology at [facility] Parker Sanchez MD [facility] [place] [address] UROLOGY DEPT [phone] [place], [place] 0[address] (Wo rk) Social History Tobacco [...] Cardiology Zulma Dolan MD [facility] [place], [place] 0[address] (Wo rk) 05/28/2022 Laboratory Appointment Lab 05/28/2022 Office Visit Cardiology Zulma Dolan MD [facility] [place] [address] Liz Poole PA [facility] [place] [address] 06/10/2022 Office Visit Dermatology Laura Scherer MD [facility] DR TEJA GR-DERMAT [place], [place] [address] (Wo rk) documented as of this encounter Visit Diagnoses Not on filedocumented in this encounter Care Teams Orientation And Mobility Instructor Relationship Specialty Start Date End Date Angela Holliday APRN PCP - General 01/25/13 04/15/[address] [place] [address] documented as of this encounter
--- OUTSIDE RECORDS SUMMARY | 2022-03-23 09:45 | XMS_ITS | Encounter Summary ---
:1945 Author Organization [facility] [place] [address] Care Team Providers Name Role Phone Angela Holliday APRN Primary Care Provider Reason for Visit Reason Comments Skin Check Encounter Details Date Type Department Care Team Description 07/31/2013 Follow-Up Dermatology at [facility] Forman eoplasm of unspecified nature of bone, soft tissue, and skin (Primary Dx); Abdelrahman HOOPER MD Seborrheic psoriasis- scalp and ingtergl uteal area; [address] [facility] Atypical nevus [place] [address] [facility] [place], [place] [address] (Wo rk) Social History Tobacco [...] encounter. Rigoberto Garcia MD Section of Dermatology [facility] documented in this encounter Plan of Treatment Upcoming Encounters Date Type Specialty Care Team Description 03/26/2022 Office Visit Cardiology Vitaliy Nobles MD [facility] DR [place]LE [place], [place] [address] (Wo rk) 05/28/2022 Appointment Cardiology Zulma Dolan MD [facility] Dr [place] [id number] (Wo rk) 05/28/2022 Laboratory Appointment Lab 05/28/2022 Office Visit Cardiology Zulma Dolan MD [facility] [place] [id number] [facility] [place] [address] 06/10/2022 Office Visit Dermatology Laura Scherer MD [facility] DR TEJA GR-DERMAT [place], [place] 0375 (Wo rk) Scheduled Orders [...] Value Ref Test Analysis Performed At [facility] gist Range Method Time Signature Surgical CERNER Pathology ? [facility] Report ? Provider: ?? RIGOBERTO GARCIA III Pt. Name: ?? GREGORY FATIMA ?A ? Acc #: ?[id number] ? Pt. ? Col Date: ?? 07/31/2013 [...] negative controls. ??These ? IHC studies provide [facility] pathologist with adjunctive diagnostic information. ? Antibody [...] 0.9 x 0.8 x 0.2 cm. ? [facility] ? Provider: ?? RIGOBERTO GARCIA III Pt. Name: ?? GREGORY FATIMA ?A ? Acc #: ?[id number] ? Pt. ? Col Date: ?? 07/31/2013 [...] [place] [address] RAKESH VILLALOBOSENNIUM Specimen to [...] Organization Address City/State/[place] [address] [facility] documented in this encounter Visit Diagnoses Diagnosis Neoplasm of unspecified nature of bone, soft tissue, and skin - Primary Seborrheic psoriasis- scalp and ingtergl uteal area Other psoriasis Atypical nevus of abdominal wall Benign neoplasm of skin of trunk, except scrotum documented in this encounter Care Teams Grinder Operator Tool Relationship Specialty Start Date End Date Angela Holliday APRN PCP - General 01/25/13 04/15/[address] [place] [address] documented as of this encounter
--- OUTSIDE RECORDS SUMMARY | 2022-03-23 09:45 | XMS_ITS | Encounter Summary ---
:1945 Author Organization [facility] [place] [address] Care Team Providers Name Role Phone Adi Costello MD Primary Care Provider Reason for Visit Reason Comments Annual Exam ckeck his groin and melanoma follow-up Encounter Details Date Type Department Care Team Description 11/21/2010 Follow-Up Dermatology Arik Tipton Melanoma (Primary Dx) [facility] MD [place] [phone] DERMATOLOGY DEPT . 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 His only complaints are leg [...] changes: Arik Tipton MD Section of Dermatology [facility] documented in this encounter Plan of Treatment Upcoming Encounters Date Type Specialty Care Team Description 03/26/2022 Office Visit Cardiology Vitaliy Nobles MD [facility] [address] [place], [place] [address] (Wo rk) 05/28/2022 Appointment Cardiology Zulma Dolan MD [facility] [place], [place] 0[address] (Wo rk) 05/28/2022 Laboratory Appointment Lab 05/28/2022 Office Visit Cardiology Zulma Dolan MD [facility] [place] [address] Liz Poole PA [facility] [place] [address] 06/10/2022 Office Visit Dermatology Laura Scherer MD [facility] DR TEJA GR-DERMAT [place]LOG[place], [place] [address] (Wo rk) documented as of this encounter Visit Diagnoses Diagnosis Melanoma - Primary Melanoma of skin, site unspecified documented in this encounter Care Teams Eap Specialist Relationship Specialty Start Date End Date Adi Costello MD PCP - General 06/17/10 09/21/11 [address] [place] [address] documented as of this encounter
--- OUTSIDE RECORDS SUMMARY | 2022-03-23 09:45 | XMS_ITS | Encounter Summary ---
:1945 Author Organization [facility] [place] [address] Care Team Providers Name Role Phone Angela Holliday APRN Primary Care Provider Reason for Visit Reason Comments Benign Prostatic Hypertrophy Encounter Details Date Type Department Care Team Description 11/28/2013 Follow-Up Urology at [facility] [place] Blade Smith, Urinary retention (Primary D x); [facility] BPH (benign prostatic hyperplasia) [place] [address] UROLOGY DEPT [place], [place] 0[address] (Wo rk) Social History Tobacco [...] Nobles MD [facility] DR TADEO [place], [place] [address] (Wo rk) 05/28/2022 Appointment Cardiology Zulma Dolan MD [facility] [place], [place] [address] (Wo rk) 05/28/2022 Laboratory Appointment Lab 05/28/2022 Office Visit Cardiology Zulma Dolan MD [facility] [place] [address] Liz Poole PA [facility] [place] [address] 06/10/2022 Office Visit Dermatology Laura Scherer MD [facility] DR TEJA GR-DERMAT OLOGY [place], [place] 0375 (Wo rk) documented as of [...] Organization Address City/State/[place] [address] [facility] documented in this encounter Visit Diagnoses Diagnosis Urinary retention - Primary Retention of urine, unspecified BPH (benign prostatic hyperplasia) Unspecified hyperplasia of prostate with out urinary obstruction and other lower urinary tract symptoms (LUTS) documented in this encounter Care Teams Spinning Mule Tender Relationship Specialty Start Date End Date Angela Holliday APRN PCP - General 01/25/13 04/15/[address] [place] [address] documented as of this encounter
--- OUTSIDE RECORDS SUMMARY | 2022-03-23 09:45 | XMS_ITS | Encounter Summary ---
:1945 Author Organization [facility] [address] Care Team Providers Name Role Phone MiyaAngela STACIE Primary Care Provider Encounter Details Date Type Department Care Team Description 04/26/2014 Office Visit Endocrinology at [facility] Albertina Palmer, Papillary thyroid [facility] [place] [address] CENTER [phone] ENDOCRINOLOGY DEPT [place] [address] Social History Tobacco Use Types Packs/Day Years [...] Nobles MD [facility] DR CARLYLE [place], [place] [address] (Wo rk) 05/28/2022 Appointment Cardiology Zulma Dolan MD [facility] [address] [place], [place] [address] (Wo rk) 05/28/2022 Laboratory Appointment Lab 05/28/2022 Office Visit Cardiology Zulma Dolan [place] [address] Liz Poole PA [facility] Dr Thomas [place] [address] 06/10/2022 Office Visit Dermatology Laura Scherer MD [facility] DR TEJA GR-DERMAT [place], [place] [address] (Wo rk) documented as [...] athologist Signature Thyroglobulin <0.4 <=54.9 CERNER ng/mL [facility] Comment: Interpret with caution. Tg levels [...] than those obtained with T4 withdrawal protocol ([place] BR et al. J Clin Endo Metab 1999;84:4913-5584). Assay performed using the DPC Immulite T [...] Palmer MD CHEMISTRY ORDERABLES Performing Organization Address City/[facility]/[place] [address] CERNER MILLENNIUM (ABNORMAL) TSH (04/26/2014 9:07 AM EDT) P athologist Signature TSH 4.46 (H) 0.27 - 4.20 CERNER mcIU/mL MILLENNIUM Specimen Anatomical Collection Method Collection Time Receive d Time (Source) Location / / Volume Laterality Blood specimen 04/26/2014 9:07 AM 014 9:12 (specimen) EDT AM EDT Resulting Agency Comment Spec In Lab Rosalind Palmer MD CHEMISTRY ORDERABLES Performing Organization Address City/[facility]/[place] [address] CERNER MILLENNIUM documented in this encounter Visit Diagnoses Diagnosis Papillary thyroid carcinoma Malignant neoplasm of thyroid gland documented in this encounter Care Teams Associate Media Planner Relationship Specialty Start Date End Date Angela Holliday APRN PCP - General 01/25/13 04/15/[address] [place] [address] documented as of this encounter
--- OUTSIDE RECORDS SUMMARY | 2022-03-23 09:45 | XMS_ITS | Encounter Summary ---
:1945 Author Organization [facility] [place] [address] Care Team Providers Name Role Phone Miya Angela STACIE Primary Care Provider Encounter Details Date Type Department Care Team Description 04/24/2013 Telephone Urology at [facility] Zhen Bowman MD [facility] [place] [address] UROLOGY DEPT [phone] [place], [place] [address] (Wo rk) Social History Tobacco [...] MD [facility] DR TADEO [place], [place] [address] (Wo rk) 05/28/2022 Appointment Cardiology Zulma Dolan MD [facility] Dr [place], [place] [address] (Wo rk) 05/28/2022 Laboratory Appointment Lab 05/28/2022 Office Visit Cardiology Zulma Dolan MD [facility] [place] [address] Liz Poole PA [facility] [place] [address] 06/10/2022 Office Visit Dermatology Laura Scherer MD [facility] DR TEJA GR-DERMAT [place], [place] 0375 (Wo rk) documented as of this encounter Visit Diagnoses Not on filedocumented in this encounter Care Teams Head Doffer Relationship Specialty Start Date End Date Angela Holliday APRN PCP - General 01/25/13 04/15/[address] [place] [address] documented as of this encounter
--- OUTSIDE RECORDS SUMMARY | 2022-03-23 09:45 | XMS_ITS | Encounter Summary ---
:1945 Author Organization [facility] [place] [address] Care Team Providers Name Role Phone MiyaLokeshAngela STACIE Primary Care Provider Encounter Details Date Type Department Care Team Description 01/16/2014 Hospital Encounter Gastroenterology at [facility] Nohemi Swann, [facility] [place] [address] [address] [facility] [phone] [facility] [place], [place] [address] Social History Tobacco Use [...] you need to be checked. Wednesday-Wednesday Clinic [phone] 8a-5p Same Day Endo [phone] 7a-8p Otherwise contact [phone] and ask to speak to the temple meat cutter global head advertiser solutions Follow up care is a [place] part [...] Swann MD - 01/16/2014 9:49 AM EDT [facility] Operative Note Patient Name: Gregory Fatima : [id number] MR#: [id number] Case Date: 01/16/2014 Surgeon: Surgeon(s) and Role: * Nohemi Swann MD - Primary Preoperative diagnosis: 5 yr surv. Full procedure note is documented under the Procedure section of eDH. documented in this encounter Plan of Treatment Upcoming Encounters Date Type Specialty Care Team Description 03/26/2022 Office Visit Cardiology Vitaliy Nobles MD [facility] DR CARLYLE [place], [place] 0[address] (Wo rk) 05/28/2022 Appointment Cardiology Zulma Dolan MD [facility] [address] [place] [address] (Wo rk) 05/28/2022 Laboratory Appointment Lab 05/28/2022 Office Visit Zulma Garrison MD [facility] [place] [address] Liz Poole PA [facility] [place] [address] 06/10/2022 Office Visit Dermatology Laura Scherer MD [facility] DR TEJA GR-DERMAT [place], [place] 0[address] (Wo rk) documented as of [...] Surgical Pathology Report (01/16/2014 9:53 AM EDT) [facility] gist Method Time Signature Surgical CERNER Pathology ? [facility] Report ? Provider: ?? NOHEMI SWANN ?Pt. Name: ?? MALICKEliseo RT, GREGORY E ? Acc #: ?[id number] ?Pt. MRN: ?[id number] ? Col Date: ?? 4 ? /Sex: [...] Organization Address City/State/[place] [address] [facility] Specimen to Pathology (surgical [...] MD PATHOLOGY/CYTOLOGY ORDERABLE S Performing Organization Address [facility]/[place] [address] CERNER MILLENNIUM Specimen to [...] MD PATHOLOGY/CYTOLOGY ORDERABLE S Performing Organization Address City/[facility] [place] [address] CERNER MILLENNIUM COLONOSCOPY (01/16/2014 7:25 AM EDT) [facility] Method Time Signature COLONOSCOPY [facility] Endoscopy Patient Name: Gregory Fatima ? Procedure Date: 01/16/2014 7:25 AM ? Date of : 1945 ? Age: 68 ? Order #: [id number] ? Procedure: ? Colonoscopy Indications: ? High [...] Laterality 01/16/2014 7:25 AM EDT Angela Sotelo TOUCH UP WORKER GENERAL SURGICAL ORDERABLES Performing Organization Address [...] Routine documented in this encounter Care Teams Mobile Security Architect Relationship Specialty Start Date End Date Angela Sotelo APRN PCP - General 01/25/13 04/15/[address] [place] [address] documented as of this encounter
--- OUTSIDE RECORDS SUMMARY | 2022-03-23 09:45 | XMS_ITS | Encounter Summary ---
:1945 Author Organization [facility] [place] [address] Care Team Providers Name Role Phone Angela Holliday APRN Primary Care Provider Reason for Visit Reason Onset Date Comments Other 03/30/2013 blood in catheter ba g Encounter Details Date Type Department Care Team Description 03/30/2013 Telephone General Surgery at [facility] Janneth Sharma, Other (blood in [facility] RN catheter bag) [place] [address] Social History Tobacco Use Types Packs/Day [...] was made with the urology clinic for Dno to be seen for a voiding trial. Mrs Fatima was contacted with this information. documented in this encounter Plan of Treatment Upcoming Encounters Date Type Specialty Care Team Description 03/26/2022 Office Visit Cardiology Vitaliy Nobles MD [facility] [address] TADEO [place], [place] [address] (Wo rk) 05/28/2022 Appointment Cardiology Zulma Dolan MD [facility] [place], [place] 0375 (Wo rk) 05/28/2022 Laboratory Appointment Lab 05/28/2022 Office Visit Cardiology Zulma Dolan MD [facility] [place] [address] Liz Poole PA [facility] [place] [address] 06/10/2022 Office Visit Dermatology Laura Scherer MD [facility] DR TEJA GR-DERMAT [place], [place] 0[address] (Wo rk) documented as of this encounter Visit Diagnoses Not on filedocumented in this encounter Care Teams Opal Miner Relationship Specialty Start Date End Date Angela Holliday APRN PCP - General 01/25/13 04/15/[address] [place] [address] documented as of this encounter
--- OUTSIDE RECORDS SUMMARY | 2022-03-23 09:45 | XMS_ITS | Encounter Summary ---
:1945 Author Organization [facility] [place] [address] Care Team Providers Name Role Phone Angela Holliday APRN Primary Care Provider Encounter Details Date Type Department Care Team Description 03/30/2013 Telephone General Surgery at [facility] Cliff Nevarez, [place] [address] Social History Tobacco Use Types Packs/Day [...] [facility] [address] TADEO [place], [place] [address] (Wo rk) 05/28/2022 Appointment Cardiology Zulma Dolan MD [facility] [address] [place], [place] [address] (Wo rk) 05/28/2022 Laboratory Appointment Lab 05/28/2022 Office Visit Cardiology Zulma Dolan MD [facility] [place] [id number] Liz Poole PA [facility] [place] [address] 06/10/2022 Office Visit Dermatology Laura Scherer MD [facility] [address] TEJA GR-DERMAT [place], [place] 0[address] (Wo rk) documented as of this encounter Visit Diagnoses Not on filedocumented in this encounter Care Teams Pesticide Chemist Relationship Specialty Start Date End Date Angela Holliday APRN PCP - General 01/25/13 04/15/[address] [place] [address] documented as of this encounter
--- OUTSIDE RECORDS SUMMARY | 2022-03-23 09:45 | XMS_ITS | Encounter Summary ---
:1945 Author Organization [facility] [place] [address] Care Team Providers Name Role Phone Angela Holliday APRN Primary Care Provider Encounter Details Date Type Department Care Team Description 01/25/2013 Clinical [place] [address] Social History Tobacco Use Types Packs/Day [...] MD [facility] DR TADEO [place], [place] [address] (Wo rk) 05/28/2022 Appointment Cardiology Zulma Dolan MD [facility] [place], [place] [address] (Wo rk) 05/28/2022 Laboratory Appointment Lab 05/28/2022 Office Visit Cardiology Zulma Dolan MD [facility] [place] [address] Liz Poole PA [facility] [place] [address] 06/10/2022 Office Visit Dermatology Laura Scherer MD [facility] DR TEJA GR-DERMAT [place], [place] [address] (Wo rk) documented as of this encounter Visit Diagnoses Not on filedocumented in this encounter Care Teams Buying Intern Relationship Specialty Start Date End Date Angela Holliday APRN PCP - General 01/25/13 04/15/[address] [place] [address] documented as of this encounter
--- OUTSIDE RECORDS SUMMARY | 2022-03-23 09:45 | XMS_ITS | Encounter Summary ---
:1945 Author Organization [facility] [place] [address] Care Team Providers Name Role Phone Angela Holliday APRN Primary Care Provider Reason for Visit Reason Comments Other Encounter Details Date Type Department Care Team Description 08/01/2013 Telephone Dermatology at [facility] Rigoberto Garcia III, [address] [place] [address] [facility] [phone] TEJA MARIE-DERMAT [place], [place] [address] (Wo rk) Social History Tobacco [...] them. Component Value Surgical Pathology Final Report [facility] Provider: RIGOBERTO GARCIA III Pt. Name: DON HOANG Acc #: [id number] Pt. Col Date: 07/31/2013 /Sex: 1945,(68 years),Male Rec Date: 07/31/2013 LOC: [facility] ---Pathologic Diagnosis--- Skin, right abdomen, shave biopsy: Lentiginous compound nevus with moderate atypia of the intraepidermal component, extending to the peripheral specimen edge, ulcerated, associated with spongiosis and superficial perivascular lymphoeosinophilic infiltrate (see Comment). CR-0 08/01/13 BJM 08/01/13 Verified by: Ian STRANGE, PhD, [facility] Dermatopathologist (Electronic Signature) The attending pathologist [...] Nobles MD [facility] DR THOMAS [place], [place] [address] (Wo rk) 05/28/2022 Appointment Cardiology Zulma Dolan MD [facility] [address] [place] [address] (Wo rk) 05/28/2022 Laboratory Appointment Lab 05/28/2022 Office Visit Zulma Garrison MD [facility] [place] [address] Liz Poole PA [facility] [place] [address] 06/10/2022 Office Visit Dermatology Laura Scherer MD [facility] ER DR TEJA MARIE-DERMAT [place], [place] [address] (Wo rk) documented as of this encounter Visit Diagnoses Not on filedocumented in this encounter Care Teams Costumer Relationship Specialty Start Date End Date Angela Holliday APRN PCP - General 01/25/13 04/15/[address] [place] [address] documented as of this encounter
--- OUTSIDE RECORDS SUMMARY | 2022-03-23 09:45 | XMS_ITS | Encounter Summary ---
:1945 Author Organization [facility] [address] Care Team Providers Name Role Phone MiyaLokeshAngela STACIE Primary Care Provider Encounter Details Date Type Department Care Team Description 04/04/2013 Orders Only General Surgery at [facility] thyroid [facility] MD Eliseo carcinoma (Primary Dx) [facility] [place] [address] GENERAL SURGERY [phone] [place], [place] [address] Social History Tobacco Use Types [...] Nobles MD [facility] ER DR CARLYLE [place], [place] [address] (Wo rk) 05/28/2022 Appointment Cardiology Zulma Dolan MD [facility] [address] [place] 0[address] (Wo rk) 05/28/2022 Laboratory Appointment Lab 05/28/2022 Office Visit Cardiology Zulma Dolan MD [facility] [place] [address] Liz Poole PA [facility] [place] [address] 06/10/2022 Office Visit Dermatology Laura Scherer MD [facility] ER DR TEJA GR-DERMAT [place], [place] 0[address] (Wo rk) documented as of this encounter Visit Diagnoses Diagnosis Papillary thyroid carcinoma - Primary Malignant neoplasm of thyroid gland documented in this encounter Care Teams Sales Route Driver Helper Relationship Specialty Start Date End Date Angela Holliday APRN PCP - General 01/25/13 04/15/[address] [place] [place] [address] documented as of this encounter
--- OUTSIDE RECORDS SUMMARY | 2022-03-23 09:45 | XMS_ITS | Encounter Summary ---
:1945 Author Organization [facility] [place] [address] Care Team Providers Name Role Phone Unknown Primary Care Provider Unavailable Reason for Visit Reason Comments Other Encounter Details Date Type Department Care Team Description 10/05/2012 Telephone Dermatology at [facility] Rigoberto Garcia III, [address] [place] [address] [facility] [phone] TEJA MARIE-DERMAT [place] [address] (Wo rk) Social History Tobacco Use Types [...] Nobles MD [facility] DR TADEO [place], [place] [address] (Wo rk) 05/28/2022 Appointment Cardiology Zulma Dolan MD [facility] [address] [place], [place] [address] (Wo rk) 05/28/2022 Laboratory Appointment Lab 05/28/2022 Office Visit Cardiology Zulma Dolan MD [facility] [place] [address] Liz Poole PA [facility] [place] [address] 06/10/2022 Office Visit Dermatology Laura Scherer MD [facility] DR LEZAMA RD-DERMAT [place], [place] [address] (Wo rk) documented as of this encounter Visit Diagnoses Not on filedocumented in this encounter Care Teams Physician General Practice Relationship Specialty Start Date End Date Unknown PCP - General 10/04/12 01/24/13 None documented as of this encounter
--- OUTSIDE RECORDS SUMMARY | 2022-03-23 09:45 | XMS_ITS | Encounter Summary ---
:1945 Author Organization [facility] [place] [address] Care Team Providers Name Role Phone Angela Holliday APRN Primary Care Provider Reason for Referral Surgical (Routine) - Closed Specialty Diagnoses / Procedures Referred By Contact Refer red To Contact General Surgery Diagnoses Elijah Villagomez MD Colacchio, Thomas A, MD [address] [place] [address] [place] [address] [place] [address] Phone: Fax: Referral ID Status Reason Start Date Expiration Date Visits V isits Requested Authorized [id number] Closed Specialty 01/25/2013 07/24/2013 1 1 Service Requested Reason for Visit Reason Comments Thyroid Problem Encounter Details Date Type Department Care Team Description 01/25/2013 Office Visit Endocrinology at 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 All [...] the thyroid gland were obtained using a SonStorrzaxx and an HFL38/13-6 broadband linear array transducer. [...] Vitaliy Nobles MD [facility] DR [place]LE [place], [place] [address] (Wo rk) 05/28/2022 Appointment Cardiology Zulma Dolan MD [facility] [address] [place] [address] (Wo rk) 05/28/2022 Laboratory Appointment Lab 05/28/2022 Office Visit Cardiology Zulma Dolan MD [facility] [place] [address] Liz Poole PA [facility] [place] [address] 06/10/2022 Office Visit Dermatology Laura Scherer MD [facility] DR TEJA GR-DERMAT [place] [phone] (Wo rk) Scheduled Referrals Name Type Priority [...] Organization Address City/State/Z[place] [address] CERNER MILLENNIUM documented in this encounter Visit Diagnoses Diagnosis Goiter - Primary Goiter, unspecified documented in this encounter Care Teams Fish Trapper Relationship Specialty Start Date End Date Angela Holliday APRN PCP - General 01/25/13 04/15/[address] [place] [address] documented as of this encounter
--- OUTSIDE RECORDS SUMMARY | 2022-03-23 09:45 | XMS_ITS | Encounter Summary ---
:1945 Author Organization [facility] [place] [address] Care Team Providers Name Role Phone NeilSom conner STACIE Primary Care Provider Reason for Visit Reason Comments Establish Care OBST GOITER Encounter Details Date Type Department Care Team Description 01/25/2013 Office Visit General Surgery at [facility] er colloid, toxic, [facility] MD Eliseo nodular (Primary Dx) [facility] [place], [place] GENERAL SURGERY [address] [place], [place] [id number] [phone] Social History Tobacco Use Types Packs/Day Years [...] the thyroid gland were obtained using a SonoSiSgnam MicroMaxx and an HFL38/13-6 broadband linear array [...] agrees to proceed. Will sign in through [facility]. Consent is signed. Send copy to Dr. SOM HOLLIDAY APRN and Elijah Elias MD. documented in this encounter Plan of Treatment Upcoming Encounters Date Type Specialty Care Team Description 03/26/2022 Office Visit Cardiology Vitaliy Nobles MD [facility] [address] TADEO [place], [place] [address] (Wo rk) 05/28/2022 Appointment Cardiology Zulma Dolan MD [facility] [place], [place] [address] (Wo rk) 05/28/2022 Laboratory Appointment Lab 05/28/2022 Office Visit Cardiology Zulma Dolan MD [facility] [place] [address] Liz Poole PA [facility] [place] [address] 06/10/2022 Office Visit Dermatology Laura Scherer MD [facility] DR TEJA GR-DERMAT [place], [place] [address] (Wo rk) documented as of [...] 406 ms MUSE SYSTEM (Bezet) Calculated P Adrian 52 degrees MUSE SYSTEM Calculated R Adrian 0 degrees MUSE SYSTEM Calculated T Adrian 40 degrees MUSE SYSTEM INTERPRETATION Normal sinus [...] storm documented in this encounter Care Teams Lightout Examiner Relationship Specialty Start Date End Date Som Holliday APRN PCP - General 01/25/13 04/15/[address] [place] [address] documented as of this encounter
--- OUTSIDE RECORDS SUMMARY | 2022-03-23 09:45 | XMS_ITS | Encounter Summary ---
:1945 Author Organization [facility] [place] [address] Care Team Providers Name Role Phone Angela Holliday APRN Primary Care Provider Encounter Details Date Type Department Care Team Description 04/05/2013 Office Visit Urology at [facility] [place] [address] Social History Tobacco Use Types Packs/Day [...] [facility] DR CARLYLE [place] [address] (Wo rk) 05/28/2022 Appointment Cardiology Zulma Dolan MD [facility] [place] [address] (Wo rk) 05/28/2022 Laboratory Appointment Lab 05/28/2022 Office Visit Cardiology Zulma Dolan MD [facility] [place] [address] Liz Poole PA [facility] [place] [address] 06/10/2022 Office Visit Dermatology Laura Scherer MD [facility] DR TEJA GR-DERMAT [place], [place] [address] (Wo rk) documented as of this encounter Visit Diagnoses Not on filedocumented in this encounter Care Teams Foreign Service Teacher Relationship Specialty Start Date End Date Angela Holliday APRN PCP - General 01/25/13 04/15/[address] [place] [address] documented as of this encounter
--- OUTSIDE RECORDS SUMMARY | 2022-03-23 09:45 | XMS_ITS | Encounter Summary ---
:1945 Author Organization [facility] [place] [address] Care Team Providers Name Role Phone Som Holliday APRN Primary Care Provider Encounter Details Date Type Department Care Team Description 04/11/2014 Procedure visit Gastroenterology at [facility], CONV Esophageal reflux [facility] Luz Winchester RN (Primary Dx) [place] [address] Social History Tobacco Use Types Packs/Day Years Used Date Former Smoker Alcohol Use Standard Drinks/Week Comments No 0 (1 standard drink = 0.6 oz pure alcoho l) Sex Assigned at Date Recorded Not on file documented as of this encounter Progress Notes Adalid Can MD - 04/13/2014 3:43 PM EDT ESOPHAGEAL MANOMETRY Don Fatima Male, 69 yrs, 1945 PCP: SOM HOLLIDAY DIORAMA MODEL MAKER: NONE STUDY DATE: 04/11/14 PROVIDER: [place] ([id number]) INDICATION Reflux; preoperative evaluation. METHODS Stationary esophageal manometry was performed with the LiveProfile esophageal motility system utilizing the Polygram software [...] of the esophagus. Adalid Can, PhD, MD small battery plate assembler, [facility] [employer] Section of Gastroenterology and Hepatology Formerly [facility] [place] [address] V: [phone] F: [phone] [facility]/gabriela CC/EC: PCP - staff msg copy 04/13/14 Henrique Taylor MD - fax copy 04/13/14 Luz Keller RN - 04/11/2014 8:14 AM EDT Esophageal manometry performed without difficulty and Was well tolerated. documented in this encounter Plan of Treatment Upcoming Encounters Date Type Specialty Care Team Description 03/26/2022 Office Visit Cardiology Vitaliy Nobles MD [facility] [address] [place], [place] [address] (Wo rk) 05/28/2022 Appointment Cardiology Zulma Dolan MD [facility] [address] [place], [place] [address] (Wo rk) 05/28/2022 Laboratory Appointment Lab 05/28/2022 Office Visit Cardiology Zulma Dolan MD [facility] [place] [address] Liz Poole PA [facility] [place] [address] 06/10/2022 Office Visit Dermatology Laura Scherer MD [facility] [address] TEJA [address]MAT [place], [place] [address] (Wo rk) documented as of this encounter Visit Diagnoses Diagnosis Esophageal reflux - Primary documented in this encounter Care Teams Tube Maker Relationship Specialty Start Date End Date Som Holliday APRN PCP - General 01/25/13 04/15/[address] [place] [address] documented as of this encounter
--- OUTSIDE RECORDS SUMMARY | 2022-03-23 09:45 | XMS_ITS | Encounter Summary ---
:1945 Author Organization [facility] [place] [address] Care Team Providers Name Role Phone Angela Sotelo APRN Primary Care Provider Encounter Details Date Type Department Care Team Description 01/16/2014 Surgery Gastroenterology at [facility] Nohemi Swann, COLONOSCOPY, [facility] Jorge mcnamara MD [place], [place] [address] [facility] L[facility] BY SNARE ([facility] [phone] DR Cintron) GASTROENTEROLOGY DEPT. [place], [place] [address] Social History Tobacco Use Types [...] you need to be checked. [facility] [phone] 8a-5p Same Day Endo [phone]-8p Otherwise contact [phone] and ask to speak to the chairman and ceo software implementation specialist Follow up care is a shelton [...] MD - 01/16/2014 9:49 AM EDT [facility] Operative Note Patient Name: Gregory Fatima : [id number] MR#: [id number] Case Date: 01/16/2014 Surgeon: Surgeon(s) and Role: * Nohemi Swann MD - Primary Preoperative diagnosis: 5 yr surv. Full procedure note is documented under the Procedure section of eDH. documented in this encounter Plan of Treatment Upcoming Encounters Date Type Specialty Care Team Description 03/26/2022 Office Visit Cardiology Vitaliy Nobles MD [facility] [address] [place] [address] (Wo rk) 05/28/2022 Appointment Cardiology Zulma Dolan MD [facility] [place] [address] (Wo rk) 05/28/2022 Laboratory Appointment Lab 05/28/2022 Office Visit Cardiology Zulma Dolan MD [facility] [place] [address] Liz Poole PA [facility] [place] [address] 06/10/2022 Office Visit Dermatology Laura Scherer MD [facility] ER DR TEJA GR-DERMAT [place], [place] [address] (Wo rk) documented as of [...] Surgical Pathology Report (01/16/2014 9:53 AM EDT) [facility] gist Method Time Signature Surgical CERNER Pathology ? [facility] Report ? Provider: ?? NOHEMI SWANN ?Pt. Name: ?? MALICKA RT, GREGORY E ? Acc #: ?[id number] ?Pt. MRN: ?[id number] ? Col Date: ?? 4 ? /Sex: [...] Organization Address City/State/[place] [address] [facility] Specimen to Pathology (surgical or [...] PATHOLOGY/CYTOLOGY ORDERABLE S Performing Organization Address City/[facility]/[place] [address] CERNER MILLENNIUM Specimen to [...] PATHOLOGY/CYTOLOGY ORDERABLE S Performing Organization Address City/[facility] Code Phon e Number [address] CERNER MILLENNIUM COLONOSCOPY (01/16/2014 7:25 AM EDT) [facility] Method Time Signature COLONOSCOPY [facility] PROVATION Endoscopy Patient Name: Gregory Fatima ? Procedure Date: 01/16/2014 7:25 AM ? Date of : 1945 ? Age: 68 ? Order #: [id number] ? Procedure: ? Colonoscopy Indications: ? High [...] Laterality 01/16/2014 7:25 AM EDT Angela Sotelo MEMBERSHIP CORRESPONDENT GENERAL SURGICAL ORDERABLES Performing Organization Address City/State/ZIP [...] documented in this encounter Care Teams Aerial Crop Duster Relationship Specialty Start Date End Date Angela Sotelo APRN PCP - General 01/25/13 04/15/[address] [place] [place] [address] documented as of this encounter
--- OUTSIDE RECORDS SUMMARY | 2022-03-23 09:45 | XMS_ITS | Encounter Summary ---
:1945 Author Organization [facility] [place] [address] Care Team Providers Name Role Phone MiyaLokeshAngela STACIE Primary Care Provider Reason for Visit Reason Onset Date Comments Post-op Problem 04/05/2013 voiding trial Encounter Details Date Type Department Care Team Description 04/05/2013 Telephone Urology at [facility] Blade Smith, Post-op Problem [facility] (voiding trial) [place] [address] UROLOGY DEPT [place] [address] (Wo rk) Social History Tobacco Use Types [...] MD [facility] [address] T[address] [place], [place] [address] (Wo rk) 05/28/2022 Appointment Cardiology Zulma Dolan MD [facility] [address] [place], [place] [address] (Wo rk) 05/28/2022 Laboratory Appointment Lab 05/28/2022 Office Visit Cardiology Zulma Dolan MD [facility] [place] [address] Liz Poole PA [facility] [place] [address] 06/10/2022 Office Visit Dermatology Laura Scherer MD [facility] [address] TEJA GR[address]DERMAT [place], [place] [address] (Wo rk) documented as of this encounter Visit Diagnoses Not on filedocumented in this encounter Care Teams Injection Operator Relationship Specialty Start Date End Date Angela Holliday APRN PCP - General 01/25/13 04/15/[address] [place] [address] documented as of this encounter
--- OUTSIDE RECORDS SUMMARY | 2022-03-23 09:47 | XMS_ITS ---
:1945 Author Organization [facility] Address [address] [place] [address] Care Team Providers Name Role Phone Janett Espino Unavailable Unavailable PROBLEMS ALLERGIES No Known Allergies ENCOUNTERS IMMUNIZATIONS No Known Immunizations SOCIAL HISTORY REASON FOR REFERRAL FUNCTIONAL STATUS PLAN OF CARE VITAL SIGNS MEDICATIONS PROCEDURES No Known procedures RESULTS REASON FOR VISIT Insurance Providers
--- OUTSIDE RECORDS SUMMARY | 2022-03-23 09:47 | XMS_ITS | Encounter Summary ---
:1945 Author Organization [facility] Address [address] [place] [address] Care Team Providers Name Role Phone Lovely Vicente MD Primary Care Provider Encounter Details Date Type Department Care Team Description 04/04/2021 Lab Requisition [facility] Outr Resulting Lab, Pathology & Laboratory Provider [facility] [address] [place] [address] Social History Tobacco Use Types Packs/Day Years [...] Negative Negative [facility] LABORATORY SERVICES Shigella/Enteroinvasive Negative Negative [facility] HN LAB CAMPYLOBACTER PCR Negative Negative [facility] ER LABORATORY SERVICES Shiga Toxin PCR Negative Negative [facility] LABORATORY SERVICES Specimen Feces - Specimen from rectum (specimen) Performing Organization Address City/State/ZIP Code Phon e Number [facility] LABORATORY [address] [place] [address] SERVICES documented in this encounter Visit Diagnoses Not on filedocumented in this encounter Care Teams Feller Operator Relationship Specialty Start Date End Date Lovely Vicente MD PCP - General 07/13/14 documented as of this encounter
--- OUTSIDE RECORDS SUMMARY | 2022-03-23 09:47 | XMS_ITS | Encounter Summary ---
:1945 Author Organization [facility] Address [address] [place] [address] Care Team Providers Name Role Phone Unavailable Primary Care Provider Unavailable Encounter Details Date Type Department Care Team Description 03/05/2014 Hospital Encounter [facility] Unknown, Provider, [facility] 0 [facility] [phone] [place] [address] (Work) [phone] Social History Tobacco Use Types Packs/Day Years [...]
--- OUTSIDE RECORDS SUMMARY | 2022-03-23 09:47 | XMS_ITS | Encounter Summary ---
:1945 Author Organization [facility] Address [address] [place] [address] Care Team Providers Name Role Phone Lovely Vicente MD Primary Care Provider Encounter Details Date Type Department Care Team Description 01/01/2020 [facility] Outr Resulting Lab, Pathology & Laboratory Provider [facility] [address] [place] [address] Social History Tobacco Use Types Packs/Day Years [...] nature PSA 2.1 0.0 - 6.5 ng/mL [facility] LABORA TORY SERVICES Specimen Blood - Venous blood (substance) Narrative [facility] LABORATORY SERVICES - 01/02/2020 10:40 EDT NOTE: Serum PSA concentration should not be in terpreted as absolute evidence for the presence or absence of malignant disease. Assayed on Siemens ADVIA Centaur XPT usi ng chemiluminescent technology.??Values obtained by using different assay methods cannot be used interchangeably. Performing Organization Address City/State/ZIP Code Phon e Number [facility] LABORATORY [address] [place] [address] SERVICES documented in this encounter Visit Diagnoses Not on filedocumented in this encounter Care Teams Research Center Partner Relationship Specialty Start Date End Date Lovely Vicente MD PCP - General 07/13/14 documented as of this encounter
--- OUTSIDE RECORDS SUMMARY | 2022-03-23 09:47 | XMS_ITS | Encounter Summary ---
:1945 Author Organization [facility] Address [address] [place] [address] Care Team Providers Name Role Phone Lovely Vicente MD Primary Care Provider Encounter Details Date Type Department Care Team Description 08/11/2019 Lab Requisition [facility] Unknown, Provider, Pathology & Laboratory [facility] [address] [facility] [place] [address] Social History Tobacco Use Types Packs/Day Years [...] Pathologist Sig nature Salmonella PCR Negative Negative [facility] LABORATORY SERVICES Shigella/Enteroinvasive Negative Negative [facility] R E. coli LABORATORY SERVICES HN LAB CAMPYLOBACTER PCR Negative Negative [facility] ER LABORATORY SERVICES Shiga Toxin PCR Negative Negative [facility] LABORATORY SERVICES Specimen Feces - Specimen from rectum (specimen) Performing Organization Address City/State/ZIP Code Phon e Number [facility] LABORATORY [address] [place] [address] SERVICES documented in this encounter Visit Diagnoses Not on filedocumented in this encounter Care Teams Expeditionary Fighting Vehicle Crewman Relationship Specialty Start Date End Date Lovely Vicente MD PCP - General 07/13/14 documented as of this encounter
--- OUTSIDE RECORDS SUMMARY | 2022-03-23 09:47 | XMS_ITS | Clinical Summary ---
:1945 Author Organization [facility] Address [address] [place] [address] Care Team Providers Name Role Phone Lovely [...] i n the results section. COVID-19 TEST [facility] Today 01/27/2022 14:30 LAB PCR EDT COVID-19 TESTING Routine 01/27/2022 14:30 Results for this EDT procedure are i n the results section. from Last 3 Months Results PSA TOTAL, DIAGNOSTIC (02/20/2022 9:04 EDT) Pathologist Sig nature PSA 2.7 <=6.5 ng/mL [facility] LABORATOR Y SERVICES Specimen Blood - Venous blood (substance) Narrative [facility] LABORATORY SERVICES - 02/20/2022 18:17 EDT NOTE: Serum PSA concentration should not be in terpreted as absolute evidence for the presence or absence of malignant disease. Assayed on Siemens ADVIA Centaur XPT usi ng chemiluminescent technology.??Values obtained by using different assay methods cannot be used interchangeably. Performing Organization Address City/State/ZIP Code Phon e Number [facility] LABORATORY [address] [place] [address] SERVICES COVID-19 TEST [facility] LAB PCR (01/27/2022 14:30 EDT) Specimen Swab Performing Organization Address City/[facility]/ZIP Code Phon e Number [facility] LABORATORY [address] [place] [address] SERVICES COVID-19 TESTING (01/27/2022 14:30 EDT) COVID-19 rt-PCR Negative Negative [facility] Result Comment: CENTER LABORATORY This test [...] performed using the meliton SARS-CoV-2 assay ([employer] on the Meliton 6800 System Performing Lab Meliton 6800 [facility] Lab [facility] LABORATORY SERVICES Specimen Swab Performing Organization Address City/[facility]/ZIP Code Phon e Number [facility] LABORATORY [address] [place] [address] SERVICES from Last 3 Months Care Teams Director Of Search Engine Marketing Relationship Specialty Start Date End Date Lovely Vicente MD PCP - General 07/13/14
--- OUTSIDE RECORDS SUMMARY | 2022-03-23 09:47 | XMS_ITS | Encounter Summary ---
:1945 Author Organization [facility] Address [address] [place] [address] Care Team Providers Name Role Phone Unknown, Provider Primary Care Provider Encounter Details Date Type Department Care Team Description 03/05/2014 Results Only [facility] Eris Taylor MD Laboratory Services - [address] [place] [address] [place] [address] [phone] Social History Tobacco Use Types Packs/Day Years Used Date Never Assessed Sex Assigned at Date Recorded Not on file documented as of this encounter Plan of Treatment Not on filedocumented as of this encounter Procedures Procedure Name Priority Date/Time Associated Diagnosis Comme [facility] SURGICAL PATHOLOGY Routine 03/05/2014 10:34 Resul [...] ? DON HOANG ? Accession #: ? [id number] ? : ? 1945 (Age: 68) ??M [...] Organization Address City/State/ZIP Code Phon e Number [facility] LABORATORY [address] [place] [address] SERVICES [facility] [address] [place] [address] documented in this encounter Visit Diagnoses Not on filedocumented in this encounter Care Teams Tailor Helper Relationship Specialty Start Date End Date Unknown, Provider, PCP - General 03/07/14 07/12/14 documented as of this encounter
--- OUTSIDE RECORDS SUMMARY | 2022-03-23 09:47 | XMS_ITS | Encounter Summary ---
:1945 Author Organization [facility] Address [address] [place] [address] Care Team Providers Name Role Phone Unknown, Provider Primary Care Provider Encounter Details Date Type Department Care Team Description 07/11/2014 Hospital Encounter [facility] [place] Unknown, Provider, [facility] [address] [place] [address] [place] [address] (Work) [phone] Social History Tobacco Use Types Packs/Day Years Used Date Never Assessed Sex Assigned at Date Recorded Not on file documented as of this encounter Discharge Disposition Disposition Code Departure Means Destination Home or Self Assisted documented in this encounter Plan of Treatment Not on filedocumented as of this encounter Visit Diagnoses Not on filedocumented in this encounter Care Teams Silk Worker Relationship Specialty Start Date End Date Unknown, Provider, PCP - General 03/07/14 07/12/14 documented as of this encounter
--- OUTSIDE RECORDS SUMMARY | 2022-03-23 09:47 | XMS_ITS | Encounter Summary ---
:1945 Author Organization [facility] Address [address] [place] [address] Care Team Providers Name Role Phone Lovely Vicente MD Primary Care Provider Encounter Details Date Type Department Care Team Description 02/20/2022 Lab Requisition [facility] Outr Resulting Lab, Pathology & Laboratory Provider [facility] [address] [place] [address] Social History Tobacco Use Types Packs/Day Years [...] Sig nature PSA 2.7 <=6.5 ng/mL [facility] LABORATOR Y SERVICES Specimen Blood - Venous blood (substance) Narrative [facility] LABORATORY SERVICES - 02/20/2022 18:17 EDT NOTE: Serum PSA concentration should not be in terpreted as absolute evidence for the presence or absence of malignant disease. Assayed on Siemens [employer] Centaur XPT usi ng chemiluminescent technology.??Values obtained by using different assay methods cannot be used interchangeably. Performing Organization Address City/State/ZIP Code Phon e Number [facility] LABORATORY [address] [place] [address] SERVICES documented in this encounter Visit Diagnoses Not on filedocumented in this encounter Care Teams Water Resource Specialist Relationship Specialty Start Date End Date Lovely Vicente MD PCP - General 07/13/14 documented as of this encounter
--- OUTSIDE RECORDS SUMMARY | 2022-03-23 09:47 | XMS_ITS | Encounter Summary ---
:1945 Author Organization [facility] Address [address] [place] [address] Care Team Providers Name Role Phone Lovely Vicente MD Primary Care Provider Encounter Details Date Type Department Care Team Description 01/28/2022 Lab Requisition [facility] Outr Resulting Lab, Pathology & Laboratory Provider [facility] [address] [place] [address] Social History Tobacco Use Types Packs/Day Years Used Date Never Assessed Sex Assigned at Date Recorded Not on file documented as of this encounter Plan of Treatment Not on filedocumented as of this encounter Procedures Procedure Name Priority Date/Time Associated Diagnosis Comme nts COVID-19 TEST [facility] Today 01/27/2022 14:30 LAB PCR EDT COVID-19 TESTING Routine 01/27/2022 14:30 Results for this EDT procedure are i n the results section. documented in this encounter Results COVID-19 TEST [facility] LAB PCR (01/27/2022 14:30 EDT) Specimen Swab Performing Organization Address City/State/ZIP Code Phon e Number [facility] [address] [place] [address] SERVICES COVID-19 TESTING (01/27/2022 14:30 EDT) COVID-19 rt-PCR Negative Negative [facility] Result Comment: CENTER LABORATORY This [...] was performed using the meliton SARS-CoV-2 assay ([employer] on the Meliton 6800 System Performing Lab Meliton 6800 [facility] Lab [facility] LABORATORY SERVICES Specimen Swab Performing Organization Address City/State/ZIP Code Phon e Number [facility] [address] [place] [address] SERVICES documented in this encounter Visit Diagnoses Not on filedocumented in this encounter Care Teams Destaticizer Feeder Relationship Specialty Start Date End Date Lovely Vicente MD PCP - General 07/13/14 documented as of this encounter
--- OUTSIDE RECORDS SUMMARY | 2022-03-23 09:47 | XMS_ITS | Encounter Summary ---
:1945 Author Organization [facility] Address [address] [place] [address] Care Team Providers Name Role Phone Lovely Vicente MD Primary Care Provider Encounter Details Date Type Department Care Team Description 01/17/2021 Lab Requisition [facility] Outr Resulting Lab, Pathology & Laboratory Provider [facility] [address] [place] [address] Social History Tobacco Use Types Packs/Day Years [...] nature PSA 2.9 0.0 - 6.5 ng/mL [facility] LABORA TORY SERVICES Specimen Blood - Venous blood (substance) Narrative [facility] LABORATORY SERVICES - 01/17/2021 17:46 EDT NOTE: Serum PSA concentration should not be in terpreted as absolute evidence for the presence or absence of malignant disease. Assayed on Siemens [employer] Centaur XPT usi ng chemiluminescent technology.??Values obtained by using different assay methods cannot be used interchangeably. Performing Organization Address City/State/ZIP Code Phon e Number [facility] LABORATORY [address] [place] [address] SERVICES documented in this encounter Visit Diagnoses Not on filedocumented in this encounter Care Teams Guide Changer Relationship Specialty Start Date End Date Lovely Vicente MD PCP - General 07/13/14 documented as of this encounter
== END 2022-03-25 23:59 | disposition home or self-care (01) ==
LOC: CR 08:00
PROVIDERS: PCP Family Medicine; Visit Provider Internal Medicine Cardiovascular Disease
DX: Z51.89 Encounter for other specified aftercare (principal); I50.9 Heart failure, unspecified; I25.2 Old myocardial infarction; Z95.5 Presence of coronary angioplasty implant and graft
CPT/HCPCS: S9472

== ENCOUNTER 2022-04-22 08:12 | Outpatient (RCR) | payer MEDICARE, BC, SELFPAY ==
--- OUTSIDE RECORDS SUMMARY | 2022-03-27 09:17 | XMS_ITS | Encounter Summary ---
:1945 Author Organization [facility] [place] [address] Care Team Providers Name Role Phone Lovely Vicente MD Primary Care Provider Encounter Details Date Type Department Care Team Description 02/24/2022 Notes Only [place] [address] Social History Tobacco Use Types Packs/Day [...] return to the Medication Assistance Program. The [facility] office will follow up with the patient in 5 business days to see if the patient has received the application and if they have any questions. documented in this encounter Plan of Treatment Upcoming Encounters Date Type Specialty Care Team Description 05/28/2022 Appointment Cardiology Zulma Dolan MD [facility] [address] [place], [place] [address] (Wo rk) 05/28/2022 Laboratory Appointment Lab 05/28/2022 Office Visit Cardiology Zulma Dolan MD [facility] [place] [address] Liz Poole PA [facility] [place] [address] 06/10/2022 Office Visit Dermatology Laura Scherer MD [facility] ER DR TEJA GR[address]DERMAT [place], [place] [address] (Wo rk) documented as of this encounter Visit Diagnoses Not on filedocumented in this encounter Care Teams Certified Medical Transcriptionist Relationship Specialty Start Date End Date Lovely Vicente MD PCP - General 04/16/[address] [place] [address] documented as of this encounter
--- OUTSIDE RECORDS SUMMARY | 2022-03-27 09:17 | XMS_ITS | Encounter Summary ---
:1945 Author Organization [facility] [place] [address] Care Team Providers Name Role Phone Lovely Vicente MD Primary Care Provider Encounter Details Date Type Department Care Team Description 03/26/2022 Office Visit Cardiology at [facility] Vitaliy Nobles MD Chronic systolic heart failure; [facility] ONE MEDICAL ASCVD (ar teriosclerotic cardiovascular disease); [facility] Cardiomyopathy, ischemic [place], [place] CARDIOLOGY [address] [place] [address] [phone] Social History Tobacco Use Types Packs/Day Years Used Date Former Smoker Cigarettes 3 5 Quit: 07/26/18 69 Smokeless Tobacco: Never Used Alcohol Use Standard Drinks/Week Comments No 0 (1 standard drink = 0.6 oz pure alcoho l) Sex Assigned at Date Recorded Not on file documented as of this encounter Last Filed Vital Signs Vital Sign Reading Time Taken Comments Blood Pressure 125/66 03/26/2022 11:22 AM EDT Pulse 67 03/26/2022 11:22 AM EDT Temperature - - Respiratory Rate - - Oxygen Saturation 99% 03/26/2022 11:22 AM EDT Inhaled Oxygen Concentration - - Weight 89.3 kg (196 lb 12.8 oz) 03/26/2022 11:22 AM EDT Height 172.7 cm (5' 8) 03/26/2022 11:22 AM EDT Body Mass Index 29.92 03/26/2022 11:22 AM EDT documented in this encounter Progress Notes Vitaliy Nobles MD - 03/26/2022 11:20 AM EDT Images from the original note were not included. [facility] [place] [address] CARDIOLOGY OUTPATIENT CLINIC VISIT [facility] Don Mccollum Kushal 03/26/2022 Referring Providers: MD Jules Cr Joyce, MD [address] [place] [id number] CHIEF COMPLAINT: I am doing well CARDIAC-RELEVANT PROBLEM LIST: 1. ASCVD. ?? S/p 3vCABG (THOMPSON-LAD, sequential SVG-OM1-D1) 07/07/2017 following late STEMI. ?? In November 2021 p/w??NSTEMI, pulmonary edema,??a??reduction of LVEF??with RWMA??and mod MR, severely elevated LVEDP 30 mmHg and occlusion of the??SVG to the??Diag1 to??OM1, and severe 95% disease of theostium of the LCX. Additionally he had RPDA with severe 95% multiple tandem lesions with YULISSA 2 flow. In November 2021, we stented the ostial LCX into the LM with a large 4.0 x 24 mm Synergy TUCKER stent extending from the LCX into the LM, and post-dilated the LM part with a 5.5 mm NC balloon. Brisk flow noted in the retrograde portion of the sequential graft into the Diag, thus probably relieved his Diag1 ischemia in addition. ?? On 01/30/2022 we stented the RPDA using a 2.0 x 26 mm ORION [place] TUCKER stent. This completes therevascularization of all the major vessels. Diffuse distal in all branches being medically managed. 2. CHF. Ischemic cardiomyopathy with LVEF 40-45% 3. Moderate MR 4. Paroxysmal atrial fibrillation on warfarin 5. Diabetes, IDDM2 6. Diabetic CKD, stage III 7. Hypertension 8. Dyslipidemia 9. COPD 10. MARIA VICTORIA 11. Right metatarsal amputation 08/09/2017 12. Hypothyroidism prior thyroidectomy [place] [address] Lovely Vicente MD [address] [place] [id number] HISTORY OF PRESENT ILLNESS: Don Ftaima is a 77 y.o. male patient presenting for an outpatient cardiology visit. Dno Fatima??is a 76 y.o.??male??with h/o??CAD s/p 3vCABG (THOMPSON-LAD, sequential SVG-OM1-D1) 07/07/2017 following late STEMI, ischemic cardiomyopathy with LVEF 40-45%, paroxysmal atrial fibrillationon outpatient Eliquis, IDDM2, CKD III, hypertension, dyslipidemia, COPD, MARIA VICTORIA, right metatarsal amputation 08/09/2017, and hypothyroidism prior thyroidectomy in 2012 who presented last month in November 2021 with a??NSTEMI, pulmonary edema,??a??reduction of LVEF??with RWMA??and mod MR. He was found to have severely elevated LVEDP of 30 mmHg and occlusion of the??SVG to the??Diag1 to??OM1, and severe 95% disease of the ostium of the LCX. Additionally she had RPDA with severe 95% multiple tandem lesions withTIMI 2 flow. That day in November 2021, we stented the ostial LCX into the LM with a large 4.0 x 24 mm extending from the LCX into the LM, and post- dilated the LM part with a 5.5 mm NC balloon. Following this we noted brisk flow up the retrograde portion of the sequential graft into the Diag, thus we probab ly relieved his Diag1 ischemia as well. We let him recover from his ADHF and contrast load and todaybrought him back for a PCI of the diffusely diseased 95% RPDA. On 01/30/2022 we stented the RPDA using a 2.0 x 26 mm ORION [place] TUCKER stent. This completes the revascularization of all the major vessels. He still has severe diffuse distal disease, which will be medically managed. He is doing well. He is no longer short of breath going upstairs. He is undergoing cardiac rehab and can exercise for 10 minutes at level 5 on treadmill, the bike and the elliptical. He denies any chest pain or shortness of breath. Overall, doing well. Review of systems: Please see the HPI for pertinent positives and negatives. The remainder of the ROS was reviewed and is negative. PAST MEDICAL HISTORY: has a past medical history of BPH (benign prostatic hyperplasia) (11/28/2013), CAD (coronary artery disease), Melanoma (2005), Peripheral vascular disease, and Urinary retention (04/05/2013). PAST SURGICAL HISTORY: Past Surgical History: Procedure Laterality Date ??? PRG SOMATOSENSORY TEST, ANY/ALL PER. NERVES, TRUNK OR HEAD 03/28/2013 FACIAL NERVE MONITORING, SETUP performed by Manny Mcknight MD at [facility] MAIN OR ??? PRO AMPUTATION FOOT, TRANSMETATARSAL Right 08/09/2017 AMPUTATION, TRANSMETATARSAL (WRVU 12.71) performed by Yonathan Smith MD at [facility] OR ??? PRO CABG, ARTERIAL, SINGLE N/A 07/07/2017 @CABG, USING ARTERIAL GRAFT;SINGLE ARTERIAL GRAFT (WRVU 33.75) performed by Yuan Retana MD at [facility] OR ??? PRO CABG, ARTERY-VEIN, TWO N/A 07/07/2017 @CABG, TWO VENOUS GRAFTS & ARTERIAL GRAFT (WRVU 7.93) performed by Yuan Retana MD at [facility] OR ??? PRO COLONOSCOPY, REMV LESN, SNARE 01/16/2014 COLONOSCOPY, POLYPECTOMY, REMOVAL LESION BY SNARE performed by Nohemi Jaimes MD at [facility] ENDOSCOPY ??? PRO DRESSING CHANGE UNDER ANESTHESIA Right 08/11/2017 (MSURG) DRESSING CHANGE (FOR OTHER THAN IVAN) UNDER ANES. (WRVU 0.86) performed by Lamar Smith MD at [facility] MAIN OR ??? PRO ENDOSCOPY W/VIDEO-ASST VEIN HARVEST, CABG Right 07/07/2017 ENDOSCOPIC HARVEST VEIN(S) FOR CABG (WRVU 0.31) performed by Yuan Retana MD at [facility] MAIN OR ??? PRO PERC TRLUML CORONARY STENT W/ANGIO ONE ART/BRANCH N/A 01/30/2022 STENT PLACEMENT-SINGLE MAJOR CORONARY ARTERY OR BRANCH performed by Vitaliy Nobles MD at [facility] CATH LABS ??? PRO THYROIDECTOMY 03/28/2013 THYROIDECTOMY, TOTAL OR COMPLETE performed by Manny Mcknight MD at [facility] MAIN OR SOCIAL HISTORY: reports that he quit smoking about 54 years ago. His smoking use included cigarettes. He has a 15.00 pack-year smoking history. He has never used smokeless tobacco. He reports that he does not drink alcohol and does not use drugs. FAMILY HISTORY: family history includes Lung Cancer in his brother. MEDICATIONS: Current Outpatient Medications Medication Sig Dispense Refill ??? metoprolol succinate XL (Toprol-XL) 25 mg Tablet Sustained Release 24 hr Take 1 tablet by mouth daily. 0.5 tablet of 50 mg 30 tablet 3 ??? sacubitriL-valsartan (Entresto) 24-26 mg Tablet tablet Take 1 tablet by mouth 2 times daily. 60 tablet 11 ??? ASPIRIN ORAL Take 81 mg by mouth. ??? apixaban (Eliquis) 5 mg Tablet Take 1 tablet by mouth 2 times daily. 180 tablet 3 ??? spironolactone (Aldactone) 25 mg Tablet Take 0.5 tablets by mouth daily. 45 tablet 3 ??? clobetasoL (TEMOVATE) 0.05 % Solution APPLY TOPICALLY DAILY NEEDED FOR RASH ??? torsemide (Demadex) 20 mg Tablet Take 1 tablet by mouth daily. 30 tablet 11 ??? clopidogreL (Plavix) 75 mg Tablet Take 1 tablet by mouth daily. 90 tablet 3 ??? empagliflozin (Jardiance) 10 mg Tablet Take 1 tablet by mouth daily. 30 tablet 3 ??? nitroGLYcerin (Nitrostat) 0.4 mg Tablet, Sublingual Place 1 tablet under the tongue every 5 minutes as needed for Chest pain. 90 tablet 12 ??? pantoprazole EC (Protonix) 40 mg Tablet, Delayed Release (E.C.) Take 1 tablet by mouth daily. 90tablet 3 ??? ferrous sulfate 325 mg (65 mg iron) Tablet Take 325 mg by mouth daily (with breakfast). Tablet 4days a week. ??? atorvastatin (Lipitor) 40 mg Tablet Take 10 mg by mouth daily. 5 days weekly. ??? insulin lispro (HumaLOG) Insulin Pen Inject 25 Units subcutaneously 3 times daily (before meals). ??? LANTUS SOLOSTAR U-100 INSULIN pen 35 [...] week on Wednesday.) 102 tablet 3 ??? Magnesium Oxide 500 mg Capsule Take 500 mg by mouth daily. ??? ACCU-CHEK ELIF PLUS TEST STRP Strip 2-3 times daily 100 each 1 ??? metFORMIN (GLUCOPHAGE) 850 mg Tablet Take 1 tablet by mouth 2 times daily (with meals). 60 tablet 12 ??? BD INSULIN PEN NEEDLE UF MINI 31 gauge x 3/16 Needle 1 each by Other route 4 times daily. 0 No current facility-administered medications for this visit. ALLERGIES: Reviewed and updated as appropriate in the medical record: Lisinopril PHYSICAL EXAMINATION: Vitals: Patient Vitals for the past 24 hrs: Pulse BP SpO2 03/26/22 1122 67 125/66 99 % Constitutional: Normal general appearance, no distress HEENT: PERRL, EOMI; dentition unremarkable Respiratory: CTAB, no wheezes, rales Cardiovascular: Normal S1S2, no murmurs, rubs or gallops Vessels: Normal jugular venous pressure; palpable pulses in all extremities Extremities: No clubbing; no edema Musculoskeletal: No significant kyphosis; no difficulty in ambulating across the room and stepping up to exam table Skin: No cyanosis, no open sores Neurologic: Alert, oriented to person, place and time Psychiatric: Normal mood and affect; no barriers to learning identified TESTING: I have reviewed the pertinent outside records, laboratory data, and imaging studies. 1. LABS: Recent Labs 03/05/22 0704 NA 140 K 4.4 BUN 29 CREATININE 1.4 Lab Results Component Value Date CHLPL 105 12/09/2021 HDL 42 12/09/2021 CHOLHDL 2.5 12/09/2021 TRIG 133 12/09/2021 LDLCHOL 36 12/09/2021 ASSESSMENT/PLAN: Don Fatima is a 77 y.o. male patient presenting for an outpatient cardiology visit for the following cardiovascular conditions: No diagnosis found. 1. ASCVD. Don Fatima??is a 76 y.o.??male??with h/o??CAD s/p 3vCABG (THOMPSON-LAD, sequential SVG-OM1-D1) 07/07/2017 following late STEMI, ischemic cardiomyopathy with LVEF 40-45%, paroxysmal atrial fibrillationon outpatient warfarin, IDDM2, CKD III, hypertension, dyslipidemia, COPD, MARIA VICTORIA, right metatarsal amputation 08/09/2017, and hypothyroidism prior thyroidectomy in 2012 who presented last month in November 2021with a??NSTEMI, pulmonary edema,??a??reduction of LVEF??with RWMA??and mod MR. He was found to have severely elevated LVEDP of 30 mmHg and occlusion of the??SVG to the??Diag1 to??OM1, and severe 95% disease of the ostium of the LCX. Additionally she had RPDA with severe 95% multiple tandem lesions with YULISSA 2 flow. That day in November 2021, we stented the ostial LCX into the LM with a large 4.0 x 24 mm extending from the LCX into the LM, and post- dilated the LM part with a 5.5 mm NC balloon. Following this we noted brisk flow up the retrograde portion of the sequential graft into the Diag, thus we proba marielena relieved his Diag1 ischemia as well. We let him recover from his ADHF and contrast load and today brought him back for a PCI of the diffusely diseased 95% RPDA. On 01/30/2022 we stented the RPDA using a 2.0 x 26 mm ORION [place] TUCKER stent. This completes the revascularization of all the major vessels. He still has severe diffuse distal disease, which will be medically managed. He is doing well. He is no longer short of breath going upstairs. He is undergoing cardiac rehab and can exercise for 10 minutes at level 5 on treadmill, the bike and the elliptical. He denies any chest pain or shortness of breath. Overall, doing well. We will continue Plavix and Eliquis. 2. CHF. Ischemic CMP. Now that he is revascularized, we will recheck an echo in 3 months. His proBNP was elevated in January 2022. He is on torsemide. He appears euvolemic today. He follows up with Liz Poole. 3. Paroxysmal atrial fibrillation On outpatient Eliquis 4. Diabetes He is on insulin and Jardiance 5. CKD III 6. Hypertension. Well controlled 7. Dyslipidemia He is on high intensity statin 8. COPD, MARIA VICTORIA. Thank you for the opportunity to take care of Don Fatima. Sincerely, Dr. Vitaliy Nobles MD MS CORBIN Meter Engineer Interventional Cardiology 03/26/2022 CC: Lovely Vicente MD CARDIOMYOPATHY/HEART FAILURE SERVICE OFFICE VISIT NOTE: ID [...] As per DC Summary - Admitted to [facility] on 12/08/21, transferred from [facility], respiratory distress with hypoxia 86% on [...] mg PO daily in place of Lasix. Aung is new for him and he will [...] his PCP. He started [facility] rehab in [facility]. Monitored vitals/trends at home: Weight 191-194 [...] Melanoma ? Your Medications Accurate as of March 26, 2022 11:43 AM. If you have any questions, ask [...] 10 mg Quantity: 30 tablet Refills: 3 Entresto 24-26 mg Tab tablet Take 1 tablet by mouth 2 times daily. Generic drug: sacubitriL-valsartan 1 tablet Quantity: 60 tablet Refills: 11 ferrous sulfate 325 mg (65 mg iron) [...] drug: insulin glargine 35 Units Refills: 0 Magnesium Oxide 500 mg Cap Take 500 mg by mouth daily. 500 mg Refills: 0 metFORMIN 850 mg Tab Commonly known as: Glucophage Take 1 tablet by mouth 2 times daily (with meals). 850 mg Quantity: 60 tablet Refills: 12 metoprolol succinate XL 25 mg Tablet sr Commonly known as: Toprol-XL Take 1 tablet by mouth daily. 0.5 tablet of 50 mg 25 mg Quantity: 30 tablet Refills: 3 nitroGLYcerin [...] Aldactone Take 0.5 tablets by mouth daily. 12.5 mg Quantity: 45 tablet Refills: 3 torsemide 20 mg Tab [...] the past 24 hrs: Pulse BP SpO2 03/26/22 1122 67 125/66 99 % Physical Exam: NCAT Neck - Supple, JVP < 10cm H2O Heart - Reg s1s2 Lungs - Clear Abd - BS+, soft, NT/ND Ext - No appreciable edema ?? Lab data: No results for input(s): NA, K, CL, CO2, BUN, CREATININE, GLUCOSE in the last 168 hours. ProBNP Date Value Ref Range Status 02/19/2022 [...] Antiplatelet (DAPT) Recommendations above ? TTE from [facility] 12/08/21 ?? 07/28/2019 Echocardiogram: SUMMARY: 1. [...] regurgitation present. 07/07/2019 - 07/21/2019 Zio Patch Mid Level Java Developer The patient had a minimum heart rate [...] when starting Entresto ?? 4. HTN BP: (125)/(66) BB, ARB, MRA ?? 5. Hx of hyperkalemia 5.4 today - reduce spironolactone to 12.5 mg daily 6. Post-op atrial fibrillation [id number] (CHF, HTN, DM, vascular disease, thromboembolism) Eliquis 7. PAD 08/06/2017: Right 1st, 2nd, 3rd toe amputation 08/11/2017: Left??femoral arterial access, RLE??angiogram, Balloon angioplasty of R PT 10/25/2017: right popliteal-pedal bypass at [facility] 8. Hypothyrodism S/p thyroidectomy for goiter Levothyroxine ?? Plan: 3 months in clinic with labs and TTE Liz Poole PA-C 03/26/2022 documented in this encounter Plan of Treatment Upcoming Encounters Date Type Specialty Care Team Description 05/28/2022 Appointment Cardiology Zulma Dolan MD [facility] [address] [place] [address] (Wo rk) 05/28/2022 Laboratory Appointment Lab 05/28/2022 Office Visit Cardiology Zulma Dolan MD [facility] [place] [address] Liz Poole PA [facility] [place] [address] 06/10/2022 Office Visit Dermatology Laura Scherer MD [facility] [address] [place], [place] [address] (Wo rk) documented as of this encounter Visit Diagnoses Diagnosis Chronic systolic heart failure ASCVD (arteriosclerotic cardiovascular d isease) Unspecified cardiovascular disease Cardiomyopathy, ischemic Other specified forms of chronic ischemi c heart disease documented in this encounter Care Teams Recreation Activities Coordinator Relationship Specialty Start Date End Date Lovely Vicente MD PCP - General 04/16/[address] [place] [address] documented as of this encounter
--- OUTSIDE RECORDS SUMMARY | 2022-03-27 09:17 | XMS_ITS | Encounter Summary ---
:1945 Author Organization [facility] [place] [address] Care Team Providers Name Role Phone Lovely Vicente MD Primary Care Provider Reason for Visit Reason Onset Date Comments Follow-up 02/23/2022 Medication adjustmen t and new med Encounter Details Date Type Department Care Team Description 02/23/2022 Telephone Cardiology at [facility] Martha Comer, Follow-up ([facility] RN adjustbrandon t and new med) [place] [address] Social History Tobacco Use Types Packs/Day [...] tablet) daily. She will correct his pill corporate event planner to the new dose. Will need [...] if he qualifies for assistance from the [employer]. She is thankful for the assistance, as he is taking insulin that is very expensive too. Instructed to call this display card writer, if he does qualify for assistance from [employer] and that he has gotten the medication [...] Cardiology Zulma Dolan MD [facility] [place], [place] [address] (Wo rk) 05/28/2022 Laboratory Appointment Lab 05/28/2022 Office Visit Cardiology Zulma Dolan MD [facility] [place] [address] Liz Poole PA [facility] [place] [address] 06/10/2022 Office Visit Dermatology Laura Scherer MD [facility] [address] [place], [place] [address] (Wo rk) documented as of this encounter Visit Diagnoses Not on filedocumented in this encounter Care Teams Mortgage Closing Clerk Relationship Specialty Start Date End Date Lovely Vicente MD PCP - General 04/16/[address] [place] [address] documented as of this encounter
--- OUTSIDE RECORDS SUMMARY | 2022-03-27 09:17 | XMS_ITS | Encounter Summary ---
:1945 Author Organization [facility] [place] [address] Care Team Providers Name Role Phone Lovely Vicente MD Primary Care Provider Reason for Visit Reason Onset Date Comments Medication Refill 03/11/2022 Encounter Details Date Type Department Care Team Description 03/06/2022 Refill Cardiology at [facility] Liz Poole PA Medication Refill [facility] Jorge mcnamara [facility] [place] [address] Cardiology Dept [phone] [place], [place] [address] (Wo rk) Social History Tobacco [...] Description 05/28/2022 Appointment Cardiology Zulma Dolan MD [facility] [address] [place], [place] [address] (Wo rk) 05/28/2022 Laboratory Appointment Lab 05/28/2022 Office Visit Cardiology Zulma Dolan MD [facility] [place] [address] Liz Poole PA [facility] [place] [address] 06/10/2022 Office Visit Dermatology Laura Scherer MD [facility] ER [address] [place], [place] [address] (Wo rk) documented as of this encounter Visit Diagnoses Not on filedocumented in this encounter Care Teams Ibm Websphere Portal Developer Relationship Specialty Start Date End Date Lovely Vicente MD PCP - General 04/16/[address] [place] [address] documented as of this encounter
--- OUTSIDE RECORDS SUMMARY | 2022-03-27 09:17 | XMS_ITS | Encounter Summary ---
:1945 Author Organization [facility] Address [facility] [place] [address] Care Team Providers Name Role Phone Lovely Vicente MD Primary Care Provider Reason for Visit Reason Comments Prior Authorization Entresto 24-26mg tablets Encounter Details Date Type Department Care Team Description 02/20/2022 Specialty Pharmacy Pharmacy at [facility] Lamberto Smith Prior Authorization [facility] J (Entresto 24-26mg Drive tablets) [place] [id number] Social History Tobacco Use Types Packs/Day Years [...] Don Fatima Patient : 1945 Patient Address: [address] [place] [address] [place] [address] (home) Medication Name: ENTRESTO 24 MG-26 MG TABLET Medication ID: [id number] Patient Location: [facility] CARDIOLOGY 4A Patient Location Comment: Medication Strength Frequency Requested: Entresto 24-26mg tablets / One tablet twice daily Qty/Day Supply: New Start: New to Therapy Diagnosis & ICD-10 Code: Chronic systolic heart failure, I50.22 Subscriber Insurance: [employer] [facility] Subscriber Insurance Comment: Fax: Physician: LIZ CARRERA Physician Comment : PA Status: NO PA REQUIRED Insurance mandated Pharmacy: Unknown Fillable at [facility]: Yes Insurance requirements/notes: None Copay: $119.01 (goes to coverage gap/odalys monteiro) Copay assistance: [employer] Copay assistance comment: If cost isn't affordable, then we'll suggest enrollment in the currently open [facility] Heart Failure zoila, which provides up to $1000 in copay assistance. If zoila closes, or doesn't work out, then the patient can attempt enrollment in the dinkey skinner assistance program, the [employer] Patient Assistance Foundation (NPAF). At which point we'd refer to [facility] for assistance with enrollment. Pharmacy staff will [...] Description 05/28/2022 Appointment Cardiology Zulma Dolan MD [facility] [address] [place], [place] [address] (Wo rk) 05/28/2022 Laboratory Appointment Lab 05/28/2022 Office Visit Cardiology Zulma Dolan MD [facility] [place] [address] Liz Carrera PA [facility] [place] [address] 06/10/2022 Office Visit Dermatology Laura Scherer MD [facility] ER [address] [place], [place] [address] (Wo rk) documented as of this encounter Visit Diagnoses Not on filedocumented in this encounter Care Teams Box Coverer Hand Relationship Specialty Start Date End Date Lovely Vicente MD PCP - General 04/16/[address] [place] [address] documented as of this encounter
--- OUTSIDE RECORDS SUMMARY | 2022-03-27 09:17 | XMS_ITS | Encounter Summary ---
:1945 [place] [address] Care Team Providers Name Role Phone Lovely Vicente MD Primary Care Provider Reason for Visit Reason Onset Date Comments Follow-up 03/06/2022 Dave Bueno Encounter Details Date Type Department Care Team Description 03/06/2022 Telephone Cardiology at [facility] Martha Comer, Follow-up ([facility] Start) [place] [address] Social History Tobacco Use Types Packs/Day [...] pt had gotten his labs done at [facility] yesterday. Results received, scanned and entered into [...] Description 05/28/2022 Appointment Cardiology Zulma Dolan MD [facility] [address] [place], [place] [address] (Wo rk) 05/28/2022 Laboratory Appointment Lab 05/28/2022 Office Visit Cardiology Zulma Dolan MD [facility] [place] [address] Liz Poole PA [facility] [place] [address] 06/10/2022 Office Visit Dermatology Laura Scherer MD [facility] [address] [place], [place] [address] (Wo rk) documented as of [...] on filedocumented in this encounter Care Teams Registry Np Relationship Specialty Start Date End Date Lovely Vicente MD PCP - General 04/16/[address] [place] [address] documented as of this encounter
--- OUTSIDE RECORDS SUMMARY | 2022-03-27 09:17 | XMS_ITS | Encounter Summary ---
:1945 Author Organization [facility] Address [facility] [place] [address] Care Team Providers Name Role Phone Lovely Vicente MD Primary Care Provider Reason for Visit Reason Onset Date Comments Medication Refill 03/06/2022 Metoprolol Succinate Encounter Details Date Type Department Care Team Description 03/06/2022 Refill Cardiology at [facility] Liz Poole PA Medication Refill [facility] (Ne toprolol Succinate) [place] [address] Cardiology Dept [phone] [place], [place] [address] (Wo rk) Social History Tobacco [...] Description 05/28/2022 Appointment Cardiology Zulma Dolan MD [facility] er [address] [place], [place] [address] (Wo rk) 05/28/2022 Laboratory Appointment Lab 05/28/2022 Office Visit Cardiology Zulma Dolan MD [facility] [place] [address] Liz Poole PA [facility] [place] [address] 06/10/2022 Office Visit Dermatology Laura Scherer MD [facility] ER DR [address] [place], [place] [address] (Wo rk) documented as of this encounter Visit Diagnoses Diagnosis Chronic systolic heart failure Cardiomyopathy, ischemic Other specified forms of chronic ischemi c heart disease documented in this encounter Care Teams Command And Control Officer Relationship Specialty Start Date End Date Lovely Vicente MD PCP - General 04/16/[address] [place] [address] documented as of this encounter
--- OUTSIDE RECORDS SUMMARY | 2022-03-27 09:17 | XMS_ITS | Clinical Summary ---
:1945 Author Organization [facility] [place] [address] Care Team Providers Name Role Phone Lovely [...] Team Description 03/26/2022 Office Visit Cardiology Vitaliy Nobles, Chronic systol ic heart failure; ASCVD (arterios clerotic cardiovascular disease); Cardiomyopathy, ischemic 03/06/2022 Refill Cardiology Virgilio, Medication Refi ll STEPHANIE Hill (Metoprolol Suc cinate) 03/06/2022 Refill Cardiology Virgilio, Medication Refi ll STEPHANIE Hill 03/06/2022 Telephone Cardiology Martha Comer Follow-up (Richelle Wyatt RN Start) 02/26/2022 Telephone Cardiology Martha Comer Follow-up (Richelle Wyatt RN start) 02/24/2022 Notes Only Care Management Morgan Wood 02/24/2022 Orders Only Cardiology Virgilio Chronic systoli c heart STEPHANIE Hill failure 02/23/2022 Telephone Cardiology Martha Comer Follow-up (Emerald Wyatt RN adjustment and new med) 02/23/2022 Refill Cardiology Lzi Poole PA 02/20/2022 Specialty Pharmacy Pharmacy Lamberto Smith A uthojuliana J (Entresto 24-26 mg tablets) 02/19/2022 Office Visit Cardiology Virgilio Chronic systissac c heart Liz PA failure 02/19/2022 Laboratory Lab Chronic systoli c heart Appointment failure 01/30/2022 Surgery Cardiology Vitaliy Nobles, CARDIAC CATHET ERIZATION 01/30/2022 Laboratory Lab ASCVD (arterios clerotic Appointment cardiovascular disease) 01/30/2022 Hospital Encounter Vitaliy Nobles, ASCVD (a rteriosclerotic cardiovascular disease); 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; ASHD (arteriosc lerotic heart disease) 01/28/2022 Orders Only Cardiology GERARD GannonVD (arterios clerotic STEPHANIE Maya cardiovascular disease) 01/28/2022 Telephone Cardiology Chitra Angela Advice Only A, RN 12/30/2021 Notes Only Cardiology Rebeka Deluca, VAMSI 12/25/2021 Office Visit Cardiology Ivone Poole heart STEPHANIE Hill failure 12/25/2021 Laboratory Lab Chronic systoli c heart Appointment failure from Last 3 Months Immunizations Name Administration [...] Pulse 67 03/26/2022 11:22 AM EDT Temperature 36.7 ??C (98.1 ??F) 01/30/2022 12:38 PM EDT Respiratory Rate 17 01/30/2022 12:38 PM EDT Oxygen Saturation 99% 03/26/2022 11:22 AM EDT Inhaled Oxygen Concentration - - Weight 89.3 kg (196 lb 12.8 oz) 03/26/2022 11:22 AM EDT Height 172.7 cm (5' 8) 03/26/2022 11:22 AM EDT Body Mass Index 29.92 03/26/2022 11:22 AM EDT Plan of Treatment Upcoming Encounters Date Type Specialty Care Team Description 05/28/2022 Appointment Cardiology Zulma Dolan MD [facility] er Dr [address] [place] [address] (Wo rk) 05/28/2022 Laboratory Appointment Lab 05/28/2022 Office Visit Cardiology Zulma Dolan MD [facility] [place] [address] Liz Poole PA [facility] [place] [address] 06/10/2022 Office Visit Dermatology Laura Scherer MD [facility] ER DR [address] [place], [place] [address] (Wo rk) Health Maintenance Due Date Last Done Comments Covid-19 Vaccine (#1) 1950 Pneumoccocal Vaccine: 65+ (1 - PCV) 1952 Hepatitis C Screening 1964 Tdap adult 1965 Tetanus vaccine 1965 Zoster vaccine (1 of 2) 1996 Colonoscopy 01/16/2019 01/16/2014, 01/16/2014 Influenza (Flu) vaccine (1 of 1 - 03/26/2022 03/29/2013, Influenza standard series) Medical Devices Implanted Type Area Concrete Boom Pump Operator Device Shelf Model / Identifier Expiration Serial / Date Lot Cable,Cut,Edg,Blnt,Ss,3tpr ([id number]) - [id number] IMPLANTS Midline: [employer] 04/01/2022 [id number] / Implanted: Qty: 4 on 07/07/2017 by Yuan Retana MD at [facility] [employer] - / [id number] Procedures Procedure Name Priority Date/Time Associated Diagnosis [...] WBC 7.2 4.0 - 9.5 [facility] x10(3)/[facility] LABORATORY RBC 4.41 (L) 4.58 - [facility] 5.54 [facility] x10(6)/[facility] LABORATORY Hemoglobin 13.2 (L) 13.7 - [facility] 16.5 g/dL [facility] LABORATORY Hematocrit 40.9 40.5 - [facility] 48.[facility] % [facility] LABORATORY MCV 92.7 82.9 - [facility] 93.1 [facility] LABORATORY MCH 29.9 27.5 - [facility] 32.1 pg [facility] LABORATORY MCHC 32.3 32.0 - [facility] 35.7 g/dL [facility] LABORATORY Platelets 191 145 - 357 [facility] x10(3)/[facility] LABORATORY RDWSD 53.6 (H) 36.0 - [facility] 45.0 [facility] LABORATORY RDWCV 15.6 (H) 11.4 - [facility] 13.8 % [facility] LABORATORY MPV 8.7 7.6 - 12.9 [facility] LABORATORY nRBC % Auto 0.0 % [facility] LABORATORY nRBC Abs Auto 0.000 0.000 - [facility] 0.000 [facility] x10(3)/[facility] LABORATORY Specimen Anatomical Collection Method Collection Time Receive d Time (Source) Location / / Volume Laterality Blood 02/19/2022 8:06 AM 8:09 EDT AM EDT Resulting Agency Comment Spec In Lab Liz BROWN HEMATOLOGY ORDERABLES Performing Organization Address City/State/ZIP Code Phon e Number [place] [id number] LAB[address] (ABNORMAL) Differential, Automated (02/19/2022 8:06 AM EDT)Only the most recent of4 resultswithin the time period is included. [facility] gist Method Time Signature Neutrophils % 76.0 % [facility] LABORATORY Neutr Abs (ANC) 5.49 1.70 - [facility] 6.10 [facility] x10(3)/[facility] LABORATORY Lymphocytes % 10.8 % [facility] LABORATORY Lymphocytes Abs 0.8 (L) 0.9 - 3.2 [facility] x10(3)/[facility] LABORATORY Monocytes % 10.2 % [facility] LABORATORY Monocyte Abs 0.7 0.3 - 0.9 [facility] x10(3)/[facility] LABORATORY Eosinophils % 1.2 % [facility] LABORATORY Eosinophils Abs 0.1 0.0 - 0.4 [facility] x10(3)/[facility] LABORATORY Basophils % 0.8 % [facility] LABORATORY Basophils Abs 0.1 0.0 - 0.1 [facility] x10(3)/[facility] LABORATORY Immature Gran % 1.00 % [facility] [...] City/State/[place] [address] (ABNORMAL) pro-Brain Natriuretic Peptide [...] City/State/[place] [address] POCT Glucose (01/30/2022 1:41 PM EDT)Only the most recent of4 resultswithin the time period is included. P athologist Signature POC Glucose 148 65 - 199 [facility] mg/dL [facility] LABORATORY Comment: Supplemental ranges: <140 mg/dL before meals <180 mg/dL all other times of the day Specimen Anatomical Collection Method Collection Time Receive d Time (Source) Location / / Volume Laterality Blood 01/30/2022 1:41 PM 2 1:41 EDT PM EDT Vitaliy Sandra Nobles MD POINT OF CARE TEST ORDERABLE S Performing Organization Address City/[facility]/[place] [address] EKG 12 Lead (01/30/2022 10:33 AM EDT) Component Value Ref Range Test Analysis Performed Pathologis t Method Time At Signature Ventricular rate 64 BPM MUSE SYSTEM Atrial Rate 64 BPM MUSE SYSTEM P-R Interval 162 ms MUSE SYSTEM QRS Duration 94 ms MUSE SYSTEM Q-T Interval 422 ms MUSE SYSTEM QTC Calculated 435 ms MUSE SYSTEM (Bezet) Calculated P [place] 41 degrees MUSE SYSTEM Calculated R [place] -27 degrees MUSE SYSTEM Calculated T [place] 104 degrees MUSE SYSTEM INTERPRETATION Normal sinus rhythm MUSE SYSTEM Anterolateral infarct (cited on or before 09-DEC-2021) Abnormal ECG When compared with ECG of 10-DEC-2021 11:17, No significant change was found Confirmed by Gary Perez ([id number]) on 01/30/2022 5:57:5 2 PM Specimen Anatomical Collection Method Collection Time Receive d Time (Source) Location / / Volume Laterality 01/30/2022 10:33 01/30/2022 5:57 AM EDT PM EDT Vitaliy Sandra Nobles MD ECG ORDERABLES Performing Organization Address City/[facility]/ZIP Code Phon e Number MUSE SYSTEM CARDIAC CATHETERIZATION (01/30/2022 10:16 AM EDT) Anatomical Region Laterality Modality Other Specimen (Source) Anatomical Location Collection Method / Collectio n Time Received Time / Laterality Volume Narrative 01/30/2022 2:09 PM EDT ?[facility] ? Cardiac Cathete rization/Intervention Report ? Patient Name: Kushal, Don Mccollum. ? Procedure Date: 01/30/2022 ? A #: [id number] ? Primary Physician: Nobles, Vitaliy P ? Case #: [id number] ? File Name: [id number] ? Catheterization Order Number: [id number] ? [facility] ? Final Report [place], [place] ? Patient Name: ? Don E. Stewa rt ? ID#: ?[id number] ? : ?1945 ? Procedure Date: ? January 30, 2022 ? Case #: ? [id number] ? Room: ? 1 ? Case Physician: [...] was ?designated as ASA Class III. [facility] clinical frailty scale is 5: Mildly [...] guiding catheter an d a 3.5 [address] [place] [address] ??20 Mhz ?using Manual pullback. ??Imagin [...] ?? A premounted 2.00 x 26 mm [place] (TUCKER) ? was deployed wi a maximum [...] Wedelivered along 2.0 x 26 mm [place] ? TUCKER stent and p ositioned it [...] require ?modification of this regimen. C onsult [facility] Interventional Cardiology for ?questions. ?The 1 year [...] using a 2.0 x 26 mm [place] TUCKER stent. ?This completes the revasculariz ation [...] Procedure Note Vitaliy Nobles MD - 03/06/2022 [facility] Cardiac Catheterization/Intervention Re port Patient Name: Kushal Don MccollumMadiha Procedure Date: 01/30/2022 A #: [id number] Primary Physician: Vitaliy Nobles Case #: [id number] File Name: [id number] Catheterization Order Number: [id number] [facility] Final Report [place], [place] Patient Name: Don Fatima ID#: [...] 1.5 guiding catheter and a 3.[address] [address] 20 Mhz using Manual pullback. Imaging was succ essful. Image quality was good. The entire vessel RPDA showed severe di ffuse atherosclerotic plaque. Indication for Intervention: Coronary intervention was indicated for treatment of stable angina. The priority for the procedure was Elective . [facility] was Stable angina. [...] atmospheres. A premounted 2.00 x 26 mm [place] (TUCKER) was deployed with a maximum inflation [...] along 2. 0 x 26 mm [place] TUCKER stent and positioned it at the [...] this regimen. Consult [facility] Interventional Cardiology for questions. [...] using a 2.0 x 26 mm [place] TUCKER stent. 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
--- OUTSIDE RECORDS SUMMARY | 2022-03-27 09:17 | XMS_ITS | Encounter Summary ---
:1945 Author Organization [facility] [place] [address] Care Team Providers Name Role Phone Lovely Vicente MD Primary Care Provider Encounter Details Date Type Department Care Team Description 02/24/2022 Orders Only Cardiology at [facility] Liz Poole, Chronic systolic heart [facility] [place] [address] Cardiology Dept [place], [place] [address] Social History Tobacco Use Types [...] Description 05/28/2022 Appointment Cardiology Zulma Dolan MD [facility] er Dr [place], [place] [address] (Wo rk) 05/28/2022 Laboratory Appointment Lab 05/28/2022 Office Visit Cardiology Zulma Dolan MD [facility] [place] [address] Liz Pooel PA [facility] [place] [address] 06/10/2022 Office Visit Dermatology Laura Scherer MD [facility] ER DR [address] [place], [place] [address] (Wo rk) documented as of this encounter Visit Diagnoses Diagnosis Chronic systolic heart failure documented in this encounter Care Teams Contract Technician Relationship Specialty Start Date End Date Lovely Vicente MD PCP - General 04/16/[address] [place] [address] documented as of this encounter
--- OUTSIDE RECORDS SUMMARY | 2022-03-27 09:17 | XMS_ITS | Encounter Summary ---
:1945 Author Organization [facility] [place] [address] Care Team Providers Name Role Phone Lovely Vicente MD Primary Care Provider Encounter Details Date Type Department Care Team Description 02/23/2022 Refill Cardiology at [facility] Liz Poole PA [facility] [place] [address] Cardiology Dept [phone] [place], [place] [address] (Wo rk) Social History Tobacco [...] Oneill RPH Transfer of Services Don Fatima [address] [place] [address] [place] [address] Telephone Information: Work Phone Not on file. The [facility] has received a prescription for Entresto for patient Mr. Don Fatima 76 y.o. (1945). The patient requests the prescription to be filled with [facility]. We spoke to patient to notify of this change and to provide number to reach the new filling pharmacy. A copyof patient's medication profile was offered to the accepting pharmacy. Additional instructions provided to patient about transfer: no The patient has been advised to call the [facility] at [phone] with any questionsor concerns on this referral. Thank you, Oxana Oneill RPH 02/23/22 4:26 PM Patient understands no changes to current drug regimen were made at this time. documented in this encounter Plan of Treatment Upcoming Encounters Date Type Specialty Care Team Description 05/28/2022 Appointment Cardiology Zulma Dolan MD [facility] [place], [place] [address] (Wo rk) 05/28/2022 Laboratory Appointment Lab 05/28/2022 Office Visit Cardiology Zulma Dolan MD [facility] [place] [address] Liz Poole PA [facility] [place] [address] 06/10/2022 Office Visit Dermatology Laura Scherer MD [facility] DR [address] [place], [place] [address] (Wo rk) documented as of this encounter Visit Diagnoses Not on filedocumented in this encounter Care Teams Supervisor Steno Pool Relationship Specialty Start Date End Date Lovely Vicente MD PCP - General 04/16/[address] [place] [address] documented as of this encounter
--- OUTSIDE RECORDS SUMMARY | 2022-03-27 09:18 | XMS_ITS | Encounter Summary ---
:1945 Author Organization [facility] [place] [address] Care Team Providers Name Role Phone Lovely Vicente MD Primary Care Provider Encounter Details Date Type Department Care Team Description 12/24/2021 Telephone Public Health at [facility] [place] [address] Social History Tobacco Use Types Packs/Day [...] MD [facility] Dr [place], [place] [address] (Wo rk) 05/28/2022 Laboratory Appointment Lab 05/28/2022 Office Visit Cardiology Zulma Dolan MD [facility] [place] [address] Liz Poole PA [facility] [place] [address] 06/10/2022 Office Visit Dermatology Laura Scherer MD [facility] ER DR [address] [place], [place] [address] (Wo rk) documented as of this encounter Visit Diagnoses Not on filedocumented in this encounter Care Teams Tin Plater Relationship Specialty Start Date End Date Lovely Vicente MD PCP - General 04/16/[address] [place] [address] documented as of this encounter
--- OUTSIDE RECORDS SUMMARY | 2022-03-27 09:18 | XMS_ITS | Encounter Summary ---
:1945 [place] [address] Care Team Providers Name Role Phone Lovely Vicente MD Primary Care Provider Encounter Details Date Type Department Care Team Description 12/25/2021 Office Visit Cardiology [place] [facility] Liz Poole, Chronic systolic heart [facility] [place] [address] Cardiology Dept [phone] [place], [place] [address] Social History Tobacco Use Types [...] As per DC Summary - [place] [facility] [place], transferred from [facility], respiratory distress with hypoxia 86% on RA. [...] mg PO daily in place of Lasix. Morganza is new for him and he will [...] Recommendations above ? TTE from [facility] 12/08/21 ?? 07/28/2019 Echocardiogram: SUMMARY: 1. The [...] regurgitation present. 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 Post-op atrial fibrillation [id number] (CHF, HTN, DM, vascular disease, thromboembolism) Eliquis 7. PAD 08/06/2017: Right 1st, 2nd, 3rd toe amputation 08/11/2017: Left??femoral arterial access, RLE??angiogram, Balloon angioplasty of R PT 10/25/2017: right popliteal-pedal bypass at [facility] 8. Hypothyrodism S/p thyroidectomy for goiter Levothyroxine ?? Plan: 1 month follow up with labs Liz Poole PA-C 12/25/2021 documented in this encounter Plan of Treatment Upcoming Encounters Date Type Specialty Care Team Description 05/28/2022 Appointment Cardiology Zulma Dolan MD [facility] [address] [place], [place] [address] (Wo rk) 05/28/2022 Laboratory Appointment Lab 05/28/2022 Office Visit Cardiology Zulma Dolan MD [facility] [place] [address] Liz Poole PA [facility] [place] [address] 06/10/2022 Office Visit Dermatology Laura Scherer MD [facility] ER DR [address] [place], [place] [address] (Mikayla alcaraz) documented as of this encounter Results (ABNORMAL) pro-Brain Natriuretic Peptide (12/25/2021 7:46 AM EDT) athologist Signature ProBNP 1,380 (H) <=124 [facility] pg[facility]mL [facility] Specimen Anatomical Collection Method Collection Time Receive d Time (Source) Location / / Volume Laterality Blood 12/25/2021 7:46 AM 8:01 EDT AM EDT Resulting Agency Comment Spec In Lab Zulma Plunkett MD CHEMISTRY ORDERABLES Performing Organization Address City/State/[place] [address] (ABNORMAL) Basic Metabolic Panel (non-fasting) (12/25/2021 7:46 AM EDT) athologist Signature Glucose Lvl 272 (H) 65 - 199 [facility] mg/dL [facility] Comment: Diabetes: [...] Organization Address City/State/[place] [address] documented in this encounter Visit Diagnoses Diagnosis Chronic systolic heart failure documented in this encounter Care Teams Plumbing Drafter Relationship Specialty Start Date End Date Lovely Vicente MD PCP - General 04/16/[address] [place] [address] documented as of this encounter
--- OUTSIDE RECORDS SUMMARY | 2022-03-27 09:18 | XMS_ITS | Encounter Summary ---
:1945 Author Organization [facility] Address [facility] [place] [address] Care Team Providers Name Role Phone Lovely Vicente MD Primary Care Provider Reason for Visit Auth/Cert Specialty Diagnoses / Procedures Referred By Contact Refer red To Contact Diagnoses ASCVD (arteriosclerotic cardiovascular disease) [I25.10] Vitaliy Nobles MD [facility] Procedures PRO PERC TRLUML CORONARY STENT W/ANGIO ONE ART/BRANCH CARDIAC CATHETERIZATION STENT PLACEMENT-SINGLE MAJOR CORONARY ARTERY OR BRANCH [facility] [place] [address] Referral ID Status Reason Start Date Expiration Date Visits Requ ested Visits Authorized [id number] 1 1 Encounter Details Date Type Department Care Team Description 01/30/2022 Surgery Money Room Supervisor Asa Coulter MD CARDIAC CATHETERIZATION [facility] [place] [address] [place] [address] [phone] (Wo rk) Social History Tobacco Use Types [...] and Clopidogrel. Please follow up with your bee farmer in the next 4-6 weeks. We have made a referral to cardiac rehab. Please see the attached instructions regarding care to your right wrist access site. AttachmentsThe following attachments cannot be sent through Care Everywhere. Coronary Angiogram: Post-op (Ivorian)documented in this encounter Medications at Time of [...] Murray RN - 01/30/2022 4:54 PM EDT [facility] Short Stay Unit Discharge Note [...] recent PCI presenting for staged PCI to [facility]. The pt states he has been [...] recent PCI presenting for staged PCI to [facility]. The indications, expected benefits, and potential [...] SSU team Don has history of prior ID and CABG. I had referred him to cardiac rehab at [facility] last month per HF team. He was waiting until this intervention before starting the program. Reviewed managing angina /use of sl nitroglycerin. Given parameters for home exercise. 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 We discussed short walks several times per day. Will send [facility] his discharge summary from this admission. The patient should be contacted by the Program within 1- 2 weeks from discharge. Brief Op Note - Vitaliy Nobles MD - 01/30/2022 10:19 AM EDT Images from the original note were not included. [facility] [place] [address] CORONARY ANGIOGRAM AND PERCUTANEOUS CORONARY INTERVENTION REPORT Patient: Don Fatima : 1945 MR number: [id number] Date of Service: 01/30/2022 Superintendent Distribution: Vitaliy Nobles MD Fellow: KEYON Elizabeth INDICATION: [...] a long 2.0 x 26 mm HARDEEP Aiken TUCKER stent and positioned it at the [...] using a 2.0 x 26 mm HARDEEP Aiken TUCKER stent. This completes the revascularization ofall [...] Description 05/28/2022 Appointment Cardiology Zulma Dolan MD [facility] [place] [address] [place] [address] (Wo rk) 05/28/2022 Laboratory Appointment Lab 05/28/2022 Office Visit Cardiology Zulma Dolan MD [facility] [place] [address] Liz Poole PA [facility] [place] [address] 06/10/2022 Office Visit Dermatology Laura Scherer MD [facility] ER DR [facility]JA [facility] [place] [address] (Wo rk) Scheduled Orders Name Type [...] Neutr Abs (ANC) 3.96 1.70 - [facility] 6.10 [facility] x10(3)/[facility] LABORATORY Lymphocytes % 16.3 % [facility] LABORATORY Lymphocytes Abs 0.9 0.9 - 3.2 [facility] x10(3)/[facility] LABORATORY Monocytes % 10.0 % [facility] LABORATORY Monocyte Abs 0.6 0.3 - 0.9 [facility] x10(3)/[facility] LABORATORY Eosinophils % 0.5 % [facility] LABORATORY Eosinophils Abs 0.0 0.0 - 0.4 [facility] x10(3)/[facility] LABORATORY Basophils % 0.5 % [facility] LABORATORY Basophils Abs 0.0 0.0 - 0.1 [facility] x10(3)/[facility] LABORATORY Immature Gran % 0.90 [...] Gran Abs 0.05 (H) 0.00 - 0.04 x10(3)/[facility] LABORATORY Specimen Anatomical Collection Method Collection Time Receive d Time (Source) Location / / Volume Laterality Blood 01/30/2022 2:12 PM 2 2:37 EDT PM EDT Resulting Agency Comment Spec In Lab Eddi Elizabeth Jr., MD HEMATOLOGY ORDERABLES Performing Organization Address City/State/[place] [address] (ABNORMAL) Hemogram (01/30/2022 2:12 PM EDT) Analysis Performed At Patho logist Time Signature WBC 5.5 4.0 - 9.5 [facility] x10(3)/[facility] LABORATORY RBC 4.30 (L) 4.58 - [facility] 5.54 [facility] x10(6)/[facility] LABORATORY Hemoglobin 12.7 (L) 13.7 - [place] 16.5 g/dL [facility] LABORATORY Hematocrit 39.4 (L) 40.5 - [place] 48.5 % [facility] LABORATORY MCV 91.6 82.9 - [place] 93.1 [facility] LABORATORY MCH 29.5 27.5 - [place] 32.1 pg [facility] LABORATORY MCHC 32.2 32.0 - [place] 35.7 g/dL [facility] LABORATORY Platelets 172 145 - 357 [place] x10(3)/[facility] LABORATORY RDWSD 54.5 (H) 36.0 - [place] 45.0 [facility] LABORATORY RDWCV 16.4 (H) 11.4 - [place] 13.8 % [facility] LABORATORY MPV 9.2 7.6 - 12.9 [place] [facility] LABORATORY nRBC % Auto 0.0 % [facility] LABORATORY nRBC Abs Auto 0.000 0.000 - [place] 0.000 [facility] x10(3)/[facility] LABORATORY Specimen Anatomical Collection Method Collection Time Receive d Time (Source) Location / / Volume Laterality Blood 01/30/2022 2:12 PM 2 2:37 EDT PM EDT Resulting Agency Comment Spec In Lab Eddi Elizabeth Jr., MD HEMATOLOGY ORDERABLES Performing Organization Address City/State/[place] [address] (ABNORMAL) Basic Metabolic Panel (non-fasting) (01/30/2022 2:12 PM EDT) P athologist Signature Glucose Lvl 163 65 - 199 [facility] mg[facility]dL [facility] LABORATORY Comment: Diabetes: [...] Organization Address City/State/[place] [address] POCT Glucose (01/30/2022 1:41 PM EDT) P athologist Signature POC Glucose 148 65 - [address] [facility] mg/dL [facility] LABORATORY Comment: Supplemental ranges: <140 mg/dL before meals <180 mg/dL all other times of the day Specimen Anatomical Collection Method Collection Time Receive d Time (Source) Location / / Volume Laterality Blood 01/30/2022 1:41 PM 2 1:41 EDT PM EDT Vitaliy Nobles MD POINT OF CARE TEST ORDERABLE S Performing Organization Address City/State/ZIP Code Phon e Number [address] POCT Glucose (01/30/2022 10:48 AM EDT) P athologist Signature POC Glucose 193 65 - 199 [place] mg/dL [facility] LABORATORY Comment: Supplemental ranges: <140 mg/dL before meals <180 mg/dL all other times of the day Specimen Anatomical Collection Method Collection Time Receive d Time (Source) Location / / Volume Laterality Blood 01/30/2022 10:48 01/30/2022 AM EDT 10:48 AM EDT Vitaliy Sandra Nobles MD POINT OF CARE TEST ORDERABLE S Performing Organization Address [facility]/ZIP Code Phon e Number [address] EKG 12 Lead (01/30/2022 10:33 AM EDT) Component Value Ref Range Test Analysis Performed Pathologis t Method Time At Signature Ventricular rate 64 BPM MUSE SYSTEM Atrial Rate 64 BPM MUSE SYSTEM P-R Interval 162 ms MUSE SYSTEM QRS Duration 94 ms MUSE SYSTEM Q-T Interval 422 ms MUSE SYSTEM QTC Calculated 435 ms MUSE SYSTEM (Bezet) Calculated P [place] 41 degrees MUSE SYSTEM Calculated R [place] -27 degrees MUSE SYSTEM Calculated T [place] 104 degrees MUSE SYSTEM INTERPRETATION Normal sinus rhythm MUSE SYSTEM Anterolateral infarct (cited on or before 09-DEC-2021) Abnormal ECG When compared with ECG of 10-DEC-2021 11:17, No significant change was found Confirmed by Gary Perez ([id number]) on 01/30/2022 5:57:5 2 PM Specimen Anatomical Collection Method Collection Time Receive d Time (Source) Location / / Volume Laterality 01/30/2022 10:33 01/30/2022 5:57 AM EDT PM EDT Vitaliy Sandra Nobles MD ECG ORDERABLES Performing Organization Address City/[facility]/ZIP Code Phon e Number MUSE SYSTEM CARDIAC CATHETERIZATION (01/30/2022 10:16 AM EDT) Anatomical Region Laterality Modality Other Specimen (Source) Anatomical Location Collection Method / Collectio n Time Received Time / Laterality Volume Narrative 01/30/2022 2:09 PM EDT ?[facility] ? Cardiac Cathete rization/Intervention Report ? Patient Name: Don Fatima. ? Procedure Date: 01/30/2022 ? A #: [id number] ? Primary Physician: Nobles, Vitaliy P ? Case #: [id number] ? File Name: [id number] ? Catheterization Order Number: [id number] ? [facility] ? Final Report [place], [place] ? Patient Name: ? Don E. Stewa rt ? ID#: ?[id number] ? : ?1945 ? Procedure Date: ? January 30, 2022 ? Case #: ? [id number] ? Room: ? 1 ? Case Physician: ? Vitaliy Nobles MMadiha D. ?Start: ?08:54 ?Fellow: ? Eddi Elizabeth [...] ?designated as ASA Class III. Th e CSHA clinical frailty scale is 5: Mildly ?Frail. [...] procedure was Urgent. The indication for ?the veterinary laboratory diagnostician visit is stable kn own CAD. Chest [...] guiding catheter an d a 3.5 Fr [place] [address] ??20 Mhz ?using Manual pullback. ??Imagin [...] A premounted 2.00 x 26 mm Hardeep Aiken (TUCKER) ? was deployed wi a maximum [...] Wedelivered along 2.0 x 26 mm HARDEEP Aiken ? TUCKER stent and p ositioned it at the ostium of the RPDA ? extending into the mid RPDA and deployed it at 12 darshan. We then ? usedthe jacbo em to post-dilate the stent to 20atm [...] dose administered prior to arrival in the veterinary laboratory diagnostician. ?Recommended anti-platelet/anti- thrombotic regimen: ?Continue aspirin 81 [...] using a 2.0 x 26 mm HARDEEP Aiken TUCKER stent. ?This completes the revasculariz ation [...] Procedure Note Vitaliy Nobles MD - 03/06/2022 [facility] Cardiac Catheterization/Intervention Re port Patient Name: Don Fatima Procedure Date: 01/30/2022 A #: [id number] Primary Physician: Vitaliy Nobles Case #: [id number] File Name: [id number] Catheterization Order Number: [id number] [facility] Final [facility] [place], [place] Patient Name: Don Fatima ID#: [...] e was Urgent. The indication for the veterinary laboratory diagnostician visit is stable known CAD. Chest pain [...] 1.5 guiding catheter and a 3.5 Fr [place] [address] 20 Mhz using Manual pullback. Imaging [...] A premounted 2.00 x 26 mm Hardeep Aiken (TUCKER) was deployed with a maximum inflation [...] along 2. 0 x 26 mm HARDEEP Aiken TUCKER stent and positioned it at the [...] administered prior t o arrival in the veterinary laboratory diagnostician. Recommended anti-platelet/anti-thrombot ic regimen: Continue aspirin 81 [...] using a 2.0 x 26 mm HARDEEP Aiken TUCKER stent. This completes the revascularization of [...] 12:08 Vitaliy Nobles MD CARDIAC CATH ORDERABLES (ABNORMAL) POCT Glucose (01/30/2022 9:04 AM EDT) athologist Signature POC Glucose 212 (H) 65 - [address] [facility] mg/dL [facility] LABORATORY Comment: Supplemental ranges: <140 mg/dL before meals <180 mg/dL all other times of the day Specimen Anatomical Collection Method Collection Time Receive d Time (Source) Location / / Volume Laterality Blood 01/30/2022 9:04 AM 2 9:04 EDT AM EDT Vitaliy Nobles MD POINT OF CARE TEST ORDERABLE S Performing Organization Address City/State/[place] [address] (ABNORMAL) POCT Glucose (01/30/2022 8:10 AM EDT) P athologist Signature POC Glucose 224 (H) 65 - [address] [facility] mg/dL [facility] LAB[facility]ORY Comment: Supplemental ranges: <140 mg/dL before meals <180 mg/dL all other times of the day Specimen Anatomical Collection Method Collection Time Receive d Time (Source) Location / / Volume Laterality Blood 01/30/2022 8:10 AM 2 8:10 EDT AM EDT Vitaliy Nobles MD POINT OF CARE TEST ORDERABLE S Performing Organization Address City/State/[place] [address] documented in this encounter Visit Diagnoses Diagnosis ASCVD (arteriosclerotic cardiovascular d isease) Unspecified cardiovascular disease 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 ASHD (arteriosclerotic heart disease) Coronary atherosclerosis of unspecified type of vessel, ewiiaapaayp or graft ASCVD (arteriosclerotic cardiovascular d isease) Unspecified cardiovascular disease documented in this encounter Admitting Diagnoses Diagnosis CAD (coronary artery disease) Coronary atherosclerosis of unspecified type of vessel, ewiiaapaayp or graft documented in this encounter Administered [...] at 1039, Until Wed at 1045, MADDISON FARMER override clopidogreL (Plavix) tablet 600 mg Given [...] Given 02/2022 10:11 AM EDT 100 mcg (GENERAL SERVICE OFFICER) ONCE PRN, Starting on Wed01/30/22 at 0927, [...] Katerin Kay, VAMSI)0923 (Given - Provider: Katerin Kay, VAMSI) ONCE PRN, Starting on Wed01/30/22 at 0855 , Until Wed01/30/22 at 1025, Cath (Intra- Procedure), Routine heparin (porcine) (1,000 units/mL) injection (CANCELED) 1023 (Given - Provider: Jet Reina, VAMSI) ONCE PRN, Starting on Wed01/30/22 at 1023 [...] Procedure), Routine niCARdipine (Cardene) (100 mcg/mL) dilution (GENERAL SERVICE OFFICER) (CANCELED ) 0927 (Given - Provider: Vitaliy [...] (Intra-Procedure) documented in this encounter Care Teams Manager Rfid Relationship Specialty Start Date End Date Lovely Vicente MD PCP - General 04/16/[address] [place] [address] documented as of this encounter
--- OUTSIDE RECORDS SUMMARY | 2022-03-27 09:18 | XMS_ITS | Encounter Summary ---
:1945 Author Organization [facility] [place] [address] Care Team Providers Name Role Phone Lovely Vicente MD Primary Care Provider Reason for Visit Auth/Cert Specialty Diagnoses / Procedures Referred By Contact Refer red To Contact Diagnoses ASCVD (arteriosclerotic cardiovascular disease) [I25.10] Vitaliy Nobles MD [facility] Procedures PRO PERC TRLUML CORONARY STENT W/ANGIO ONE ART/BRANCH CARDIAC CATHETERIZATION STENT PLACEMENT-SINGLE MAJOR CORONARY ARTERY OR BRANCH [facility] [place] [address] Referral ID Status Reason Start Date Expiration Date Visits Requ ested Visits Authorized [id number] 1 1 Encounter Details Date Type Department Care Team Description 01/30/2022 Laboratory Lab 3L [place] ASCVD (arterios clerotic Appointment [facility] cardiovas cular disease) [place] [address] Social History Tobacco Use Types Packs/Day Years [...] Cardiology Zulma Dolan MD [facility] [place], [place] [address] (Wo rk) 05/28/2022 Laboratory Appointment Lab 05/28/2022 Office Visit Cardiology Zulma Dolan MD [facility] [place] [address] Liz Poole PA [facility] [place] [address] 06/10/2022 Office Visit Dermatology Laura Scherer MD [facility] DR TEJA GR-DERMAT [place], [place] [address] (Wo rk) documented as of [...] (ABNORMAL) Differential, Automated (01/30/2022 7:19 AM EDT) [facility] gist Method Time Signature Neutrophils % 77.9 % [facility] LABORATORY Neutr Abs (ANC) 5.31 1.70 - [facility] 6.10 [facility] x10(3)/[facility] LABORATORY Lymphocytes % 12.0 % [facility] LABORATORY Lymphocytes Abs 0.8 (L) 0.9 - 3.2 [facility] x10(3)/[facility] LABORATORY Monocytes % 8.1 % [facility] LABORATORY Monocyte Abs 0.6 0.3 - 0.9 [facility] x10(3)/[facility] LABORATORY Eosinophils % 0.4 % [facility] LABORATORY Eosinophils Abs 0.0 0.0 - 0.4 [facility] x10(3)/[facility] LABORATORY Basophils % 0.6 % [facility] LABORATORY Basophils Abs 0.0 0.0 - 0.1 [facility] x10(3)/[facility] LABORATORY Immature Gran % 1.00 % [...] Gran Abs 0.07 (H) 0.00 - 0.04 x10(3)/[facility] LABORATORY Specimen Anatomical Collection Method Collection Time Receive d Time (Source) Location / / Volume Laterality Blood 01/30/2022 7:19 AM 7:21 EDT AM EDT Resulting Agency Comment Spec In Lab Zulma BROWN HEMATOLOGY ORDERABLES Performing Organization Address City/State/[place] [address] (ABNORMAL) Hemogram (01/30/2022 7:19 AM EDT) Analysis Performed At Patho logist Time Signature WBC 6.8 4.0 - 9.5 [facility] x10(3)/[facility] LABORATORY RBC 4.32 (L) 4.58 - [facility] 5.54 [facility] x10(6)/[facility] LABORATORY Hemoglobin 13.0 (L) 13.7 - [facility] g/dL [facility] LABORATORY Hematocrit 39.8 (L) 40.5 - [facility] 48.5 % [facility] LABORATORY MCV 92.1 82.9 - [facility] 93.1 fL [facility] LABORATORY MCH 30.1 27.5 - [facility] 32.1 pg [facility] LABORATORY MCHC 32.7 32.0 - [place] RYAN 35.7 g/dL [facility] LABORATORY Platelets 172 145 - 357 [facility] x10(3)/[facility] LABORATORY RDWSD 54.5 (H) 36.0 - [place] RYAN 45.[address] [facility] LABORATORY RDWCV 16.2 (H) 11.4 - [facility] 13.8 % [facility] LABORATORY MPV 9.0 7.6 - 12.9 [facility] LABORATORY nRBC % Auto 0.0 % [facility] LABORATORY nRBC Abs Auto 0.000 0.000 - [facility] 0.000 [facility] x10(3)/[facility] LABORATORY Specimen Anatomical Collection Method Collection Time Receive d Time (Source) Location / / Volume Laterality Blood 01/30/2022 7:19 AM 7:21 EDT AM EDT Resulting Agency Comment Spec In Lab Zulma BROWN HEMATOLOGY ORDERABLES Performing Organization Address City/State/[place] [address] (ABNORMAL) Basic Metabolic Panel (non-fasting) (01/30/2022 7:19 AM EDT) P athologist Signature Glucose Lvl 237 (H) 65 - 199 [facility] mg/dL [facility] LABORATORY Comment: [...] LABORATORY Calcium 9.5 8.5 - 10.5 mg/dL [facility] LABORATORY Estimated GFR 50 (L) >=60 [...] City/State/ZIP Code Phon e Number [place] [phone] HOS[address] documented in this encounter Visit Diagnoses Diagnosis ASCVD (arteriosclerotic cardiovascular d isease) Unspecified cardiovascular disease documented in this encounter Care Teams World Designer Relationship Specialty Start Date End Date Lovely Vicente MD PCP - General 04/16/[address] [place] [address] documented as of this encounter
--- OUTSIDE RECORDS SUMMARY | 2022-03-27 09:18 | XMS_ITS | Encounter Summary ---
:1945 Author Organization [facility] [place] [address] Care Team Providers Name Role Phone Lovely Vicente MD Primary Care Provider Reason for Referral Diagnostic Test (Routine) - New Request Specialty Diagnoses / Procedures Referred By Contact Refer red To Contact Cardiology Diagnoses Chronic systolic heart failure Liz Carrera PA [facility] Non-Inv Card Lab Procedures Echocardiogram Transthoracic [facility] [place] [address] [place] [address] Fax: Referral ID Status Reason Start Expiration Visits Visits Date Date Requested Authorized [id number] New Request Specialty 02/19/2022 02/19/2023 1 1 Service Requested Encounter Details Date Type Department Care Team Description 02/19/2022 Office Visit Cardiology at [facility] Liz Carrera, Chronic systolic heart [facility] [place] [address] Cardiology Dept [phone] [place], [place] [address] Social History Tobacco Use Types [...] per DC Summary - Admitted to [facility] on 12/08/21, transferred from [facility], respiratory distress with hypoxia 86% on RA. [...] mg PO daily in place of Lasix. Whipple is new for him and he will [...] his PCP. He started [facility] in [facility]. Monitored vitals/trends at home: Weight [...] Recommendations above ? TTE from [facility] 12/08/21 ?? 07/28/2019 Echocardiogram: SUMMARY: 1. The [...] regurgitation present. 07/07/2019 - 07/21/2019 [employer] The patient had a minimum heart rate [...] 12.5 mg daily 6. Post-op atrial fibrillation [id number] (CHF, HTN, DM, vascular disease, thromboembolism) Eliquis 7. PAD 08/06/2017: Right 1st, 2nd, 3rd toe amputation 08/11/2017: Left??femoral arterial access, RLE??angiogram, Balloon angioplasty of R PT 10/25/2017: right popliteal-pedal bypass at [facility] 8. Hypothyrodism S/p thyroidectomy for goiter Levothyroxine ?? Plan: 3 months in clinic with labs and TTE [facility]ON[facility] 02/19/2022 documented in this encounter Miscellaneous Notes Addendum Note - Liz Carrera PA - 02/19/2022 9:00 AM EDT Addended by: LIZ CARRERA on: 02/19/2022 04:22 PM Modules accepted: Orders documented in this encounter Plan of Treatment Upcoming Encounters Date Type Specialty Care Team Description 05/28/2022 Appointment Cardiology Zulma Dolan MD [facility] [place], [place] [address] (Wo rk) 05/28/2022 Laboratory Appointment Lab 05/28/2022 Office Visit Cardiology Zulma Dolan MD [facility] [place] [address] Liz Carrera PA [facility] [place] [address] 06/10/2022 Office Visit Dermatology Laura Scherer MD [facility] DR [address]MAT [facility] [place] [place] [address] (Wo rk) Scheduled Orders Name Type Priority Associated Order Schedule Diagnoses Echocardiogram Echocardiography Routine Chronic systolic Expec vlad: Transthoracic heart failure 05/22/2022 (Approximate), Expires: 11/21/2022 documented as of this encounter Results (ABNORMAL) Basic Metabolic Panel (non-fasting) (02/19/2022 8:06 AM EDT) P athologist Signature Glucose Lvl 139 65 - 199 [facility] mg/dL [facility] Comment: Diabetes: [...] City/State/ZIP Code Phon e Number [place] [phone] LAB[address]ORY [address] (ABNORMAL) pro-Brain Natriuretic Peptide (02/19/2022 8:06 AM EDT) P athologist Signature ProBNP 984 (H) <=449 pg/mL [facility] Specimen Anatomical Collection Method Collection Time Receive d Time (Source) Location / / Volume Laterality Blood 02/19/2022 8:06 AM 8:09 EDT AM EDT Resulting Agency Comment Spec In Lab Zulma Plunkett MD CHEMISTRY ORDERABLES Performing Organization Address City/[facility]/[place] [address] documented in this encounter Visit Diagnoses Diagnosis Chronic systolic heart failure documented in this encounter Care Teams Block Tester Relationship Specialty Start Date End Date Lovely Vicente MD PCP - General 04/16/[address] [place] [address] documented as of this encounter
--- OUTSIDE RECORDS SUMMARY | 2022-03-27 09:18 | XMS_ITS | Encounter Summary ---
:1945 Author Organization [facility] [place] [address] Care Team Providers Name Role Phone Lovely Vicente MD Primary Care Provider Encounter Details Date Type Department Care Team Description 12/24/2021 Orders Only Income Tax Analyst Zulma Finch ASCVD (art eriosclerotic [facility] cardiovascular disease) [facility] [place] [address] [place], [place] [phone] (Work) [phone] Social History Tobacco Use Types Packs/Day Years [...] Description 05/28/2022 Appointment Cardiology Zulma Dolan MD [facility] [address] [place] [address] (Wo rk) 05/28/2022 Laboratory Appointment Lab 05/28/2022 Office Visit Cardiology Zulma Dolan MD [facility] [place] [address] Liz Poole PA [facility] [place] [address] 06/10/2022 Office Visit Dermatology Laura Scherer MD [facility] DR [address] [place], [place] [address] (Wo rk) documented as of this encounter Visit Diagnoses Diagnosis ASCVD (arteriosclerotic cardiovascular d isease) Unspecified cardiovascular disease documented in this encounter Care Teams Chief Of Vital Statistics Relationship Specialty Start Date End Date Lovely Vicente MD PCP - General 04/16/[address] [place] [address] documented as of this encounter
--- OUTSIDE RECORDS SUMMARY | 2022-03-27 09:18 | XMS_ITS | Encounter Summary ---
:1945 Author Organization [facility] [place] [address] Care Team Providers Name Role Phone Lovely Vicente MD Primary Care Provider Encounter Details Date Type Department Care Team Description 12/12/2021 Telephone Cardiology at [facility] [place] [address] Social History Tobacco Use Types Packs/Day [...] - 12/12/2021 11:36 AM EDT RTC to [employer] regarding pharmacists questions as to whether the [...] MD [facility] Dr [place] [address] (Wo rk) 05/28/2022 Laboratory Appointment Lab 05/28/2022 Office Visit Cardiology Zulma Dolan MD [facility] [place] [address] Liz Poole PA [facility] [place] [address] 06/10/2022 Office Visit Dermatology Laura Scherer MD [facility] DR [address] [place], [place] [address] (Wo rk) documented as of this encounter Visit Diagnoses Not on filedocumented in this encounter Care Teams Archery Equipment Repairer Relationship Specialty Start Date End Date Lovely Vicente MD PCP - General 04/16/[address] [place] [address] documented as of this encounter
--- OUTSIDE RECORDS SUMMARY | 2022-03-27 09:18 | XMS_ITS | Encounter Summary ---
:1945 [place] [address] Care Team Providers Name Role Phone Lovely Vicente MD Primary Care Provider Encounter Details Date Type Department Care Team Description 12/30/2021 Notes Only [facility] [place] [address] Social History Tobacco Use Types Packs/Day [...] Failure team. DX: HFrEF. Referral placed to [facility] documented in this encounter Plan of Treatment Upcoming Encounters Date Type Specialty Care Team Description 05/28/2022 Appointment Cardiology Zulma Dolan MD [facility] [place], [place] [address] (Wo rk) 05/28/2022 Laboratory Appointment Lab 05/28/2022 Office Visit Cardiology Zulma Dolan MD [facility] [place] [address] Liz Poole PA [facility] [place] [address] 06/10/2022 Office Visit Dermatology Laura Scherer MD [facility] ER [address]DERMAT [place], [place] [address] (Wo rk) documented as of this encounter Visit Diagnoses Not on filedocumented in this encounter Care Teams Car Pre Cooler Relationship Specialty Start Date End Date Lovely Vicente MD PCP - General 04/16/[address] [place] [address] documented as of this encounter
--- OUTSIDE RECORDS SUMMARY | 2022-03-27 09:18 | XMS_ITS | Encounter Summary ---
:1945 Author Organization [facility] [place] [address] Care Team Providers Name Role Phone Lovely Vicente MD Primary Care Provider Reason for Visit Reason Onset Date Comments Medication Refill 12/12/2021 Torsemide Encounter Details Date Type Department Care Team Description 12/12/2021 Refill Cardiology at [facility] Janneth Padilla, Medication Refill [facility] STEPHANIE (Torsemide) [place] [address] CARDIOLOGY DEPT. [place], [place] [address] (Wo rk) Social History Tobacco [...] Description 05/28/2022 Appointment Cardiology Zulma Dolan MD [facility] [place] [address] (Wo rk) 05/28/2022 Laboratory Appointment Lab 05/28/2022 Office Visit Cardiology Zulma Dolan MD [facility] [place] [address] Liz Poole PA [facility] [place] [address] 06/10/2022 Office Visit Dermatology Laura Scherer MD [facility] ER DR [address]MAT [place], [place] [address] (Wo rk) documented as of this encounter Visit Diagnoses Diagnosis Chronic systolic heart failure documented in this encounter Care Teams Electrification Adviser Relationship Specialty Start Date End Date Lovely Vicente MD PCP - General 04/16/[address] [place] [address] documented as of this encounter
--- OUTSIDE RECORDS SUMMARY | 2022-03-27 09:18 | XMS_ITS | Encounter Summary ---
:1945 Author Organization [place] [address] Care Team Providers Name Role Phone Lovely Vicente MD Primary Care Provider Encounter Details Date Type Department Care Team Description 12/25/2021 Laboratory Appointment Lab 3L [facility] [place] [address] Social History Tobacco Use Types Packs/Day Years [...] Description 05/28/2022 Appointment Cardiology Zulma Dolan MD [facility] er [place], [place] [address] (Wo rk) 05/28/2022 Laboratory Appointment Lab 05/28/2022 Office Visit Cardiology Zulma Dolan MD [facility] [place] [address] Liz Poole PA [facility] [place] [address] 06/10/2022 Office Visit Dermatology Laura Scherer MD [facility] DR [address]DERMAT [place] [address] (Wo rk) documented as of this encounter [...] (ABNORMAL) Differential, Automated (12/25/2021 7:46 AM EDT) [facility] gist Method Time Signature Neutrophils % 82.6 % [facility] Neutr Abs (ANC) 9.37 (H) 1.70 - [facility] 6.10 [facility] x10(3)/[facility] LABORATORY Lymphocytes % 7.1 % [facility] Lymphocytes Abs 0.8 (L) 0.9 - 3.2 [facility] x10(3)/[facility] LABORATORY Monocytes % 8.8 % [facility] Monocyte Abs 1.0 (H) 0.3 - 0.9 [facility] x10(3)/[facility] LABORATORY Eosinophils % 0.4 % [facility] Eosinophils Abs 0.0 0.0 - 0.4 [facility] x10(3)/[facility] LABORATORY Basophils % 0.4 % [facility] Basophils Abs 0.0 0.0 - 0.1 [facility] x10(3)/[facility] LABORATORY Immature Gran % [...] Organization Address City/State/ZIP Code Phon e Number [place] [phone] LAB[address] (ABNORMAL) Hemogram (12/25/2021 7:46 AM EDT) Analysis Performed At Patho logist Time Signature WBC 11.4 (H) 4.0 - 9.5 [facility] x10(3)/[facility] LABORATORY RBC 4.23 (L) 4.58 - [facility] 5.54 [facility] x10(6)/[facility] LABORATORY Hemoglobin 12.3 (L) 13.7 - [facility] 16.5 g/dL [facility] Hematocrit 37.7 (L) 40.5 - [facility] 48.5 % [facility] LABORATORY MCV 89.1 82.9 - [facility] 93.1 [facility] LABORATORY MCH 29.1 27.5 - [place] [facility] 32.1 pg [facility] LABORATORY MCHC 32.6 32.0 - [facility] 35.7 g/dL [facility] LABORATORY Platelets 215 145 - 357 [facility] x10(3)/[facility] LABORATORY RDWSD 49.8 (H) 36.0 - [place] 45.0 [facility] RDWCV 15.2 (H) 11.4 - [facility] 13.8 % [facility] LABORATORY MPV 9.2 7.6 - 12.9 [facility] LABORATORY nRBC % Auto 0.0 % [facility] nRBC Abs Auto 0.000 0.000 - [facility] 0.000 [facility] x10(3)/[facility] LABORATORY Specimen Anatomical Collection Method Collection Time Receive d Time (Source) Location / / Volume Laterality Blood 12/25/2021 7:46 AM 8:01 EDT AM EDT Resulting Agency Comment Spec In Lab Liz BROWN HEMATOLOGY ORDERABLES Performing Organization Address City/State/[place] [address] (ABNORMAL) Basic Metabolic Panel (non-fasting) (12/25/2021 7:46 AM EDT) P athologist Signature Glucose Lvl 272 (H) 65 - 199 [facility] mg/dL [facility] [...] Plunkett MD CHEMISTRY ORDERABLES Performing Organization Address City/[facility]/[place] [address] (ABNORMAL) pro-Brain Natriuretic Peptide (12/25/2021 7:46 AM EDT) P athologist Signature ProBNP 1,380 (H) <=124 [facility] pg/mL [facility]OR[facility]ORY Specimen Anatomical Collection Method Collection Time Receive d Time (Source) Location / / Volume Laterality Blood 12/25/2021 7:46 AM 2 8:01 EDT AM EDT Resulting Agency Comment Spec In Lab Zulma Plunkett MD CHEMISTRY ORDERABLES Performing Organization Address City/[facility]/ZIP [facility] [place] [address] documented in this encounter Visit Diagnoses Diagnosis Chronic systolic heart failure documented in this encounter Care Teams Activity Aide Relationship Specialty Start Date End Date Lovely Vicente MD PCP - General 04/16/[address] [place] [address] documented as of this encounter
--- OUTSIDE RECORDS SUMMARY | 2022-03-27 09:18 | XMS_ITS | Encounter Summary ---
:1945 Author Organization [facility] [place] [address] Care Team Providers Name Role Phone Lovely Vicente MD Primary Care Provider Encounter Details Date Type Department Care Team Description 02/19/2022 Laboratory Appointment Lab 3L [facility] [place] [phone] Social History Tobacco Use Types Packs/Day Years [...] Dolan MD [facility] [place], [place] [address] (Wo rk) 05/28/2022 Laboratory Appointment Lab 05/28/2022 Office Visit Cardiology Zulma Dolan MD [facility] [place] [address] Liz Poole PA [facility] [place] [address] 06/10/2022 Office Visit Dermatology Laura Scherer MD [facility] DR [address] [place] [address] (Wo rk) documented as of this encounter [...] (ABNORMAL) Differential, Automated (02/19/2022 8:06 AM EDT) [facility] gist Method Time Signature Neutrophils % 76.0 % [facility] Neutr Abs (ANC) 5.49 1.70 - [facility] 6.10 [facility] x10(3)/[facility] LABORATORY Lymphocytes % 10.8 % [facility] Lymphocytes Abs 0.8 (L) 0.9 - 3.2 [facility] x10(3)/[facility] LABORATORY Monocytes % 10.2 % [facility] Monocyte Abs 0.7 0.3 - 0.9 [facility] x10(3)/[facility] LABORATORY Eosinophils % 1.2 % [facility] Eosinophils Abs 0.1 0.0 - 0.4 [facility] x10(3)/[facility] LABORATORY Basophils % 0.8 % [facility] Basophils Abs 0.1 0.0 - 0.1 [facility] x10(3)/[facility] LABORATORY Immature Gran % 1.00 % [facility] [...] Gran Abs 0.07 (H) 0.00 - 0.04 x10(3)/[facility] LABORATORY Specimen Anatomical Collection Method Collection Time Receive d Time (Source) Location / / Volume Laterality Blood 02/19/2022 8:06 AM 8:09 EDT AM EDT Resulting Agency Comment Spec In Lab Liz BROWN HEMATOLOGY ORDERABLES Performing Organization Address City/State/[place] [address] (ABNORMAL) Hemogram (02/19/2022 8:06 AM EDT) Analysis Performed At Patho logist Time Signature WBC 7.2 4.0 - 9.5 [facility] x10(3)/[facility] LABORATORY RBC 4.41 (L) 4.58 - [facility] 5.54 [facility] x10(6)/[facility] LABORATORY Hemoglobin 13.2 (L) 13.7 - [facility] 16.[facility] g/dL [facility] LABORATORY Hematocrit 40.9 40.5 - [facility] 48.5 % [facility] LABORATORY MCV 92.7 82.9 - [facility] 93.1 [facility] LABORATORY MCH 29.9 27.5 - [facility] 32.1 pg [facility] LABORATORY MCHC 32.3 32.0 - [facility] 35.7 g/dL [facility] LABORATORY Platelets 191 145 - 357 [facility] x10(3)/[facility] LABORATORY RDWSD 53.6 (H) 36.0 - [facility] 45.0 [facility] LABORATORY RDWCV 15.6 (H) 11.4 - [facility] 13.8 % [facility] LABORATORY MPV 8.7 7.6 - 12.9 [facility] LABORATORY nRBC % Auto 0.0 % [facility] nRBC Abs Auto 0.000 0.000 - [facility] 0.000 [facility] x10(3)/[facility] LABORATORY Specimen Anatomical Collection Method Collection Time Receive d Time (Source) Location / / Volume Laterality Blood 02/19/2022 8:06 AM 2 8:09 EDT AM EDT Resulting Agency Comment Spec In Lab Liz BROWN HEMATOLOGY ORDERABLES Performing Organization Address City/[facility]/[place] [address] (ABNORMAL) pro-Brain Natriuretic Peptide [...] Organization Address City/State/[place] [address] (ABNORMAL) Basic Metabolic Panel (non-fasting) (02/19/2022 8:06 AM EDT) P athologist Signature Glucose Lvl 139 65 - 199 [facility] mg/dL [facility] Comment: Diabetes: >=200 mg/dL plus symp toms BUN 31 (H) 10 - 20 mg/dL [facility] Creatinine 1.53 (H) 0.80 - 1.50 mg/dL [facility] [...] Organization Address City/State/[place] [address] documented in this encounter Visit Diagnoses Diagnosis Chronic systolic heart failure documented in this encounter Care Teams Electronic Prepress System Operator Relationship Specialty Start Date End Date Lovely Vicente MD PCP - General 04/16/[address] [place] [address] documented as of this encounter
--- OUTSIDE RECORDS SUMMARY | 2022-03-27 09:18 | XMS_ITS | Encounter Summary ---
:1945 Author Organization [facility] [place] [address] Care Team Providers Name Role Phone Lovely Vicente MD Primary Care Provider Encounter Details Date Type Department Care Team Description 01/28/2022 Orders Only Stem Cleaning Machine Feeder Zulma Finch ASCVD (art eriosclerotic [facility] cardiovascular disease) [facility] [place] [address] [place], [place] [phone] (Work) [phone] Social History Tobacco Use Types Packs/Day Years [...] Description 05/28/2022 Appointment Cardiology Zulma Dolan MD [facility] [address] [place] [address] (Wo rk) 05/28/2022 Laboratory Appointment Lab 05/28/2022 Office Visit Cardiology Zulma Dolan MD [facility] [place] [address] Liz Poole PA [facility] [place] [address] 06/10/2022 Office Visit Dermatology Laura Scherer MD [facility] DR [address] [place], [place] [address] (Wo rk) documented as of this encounter Results (ABNORMAL) Basic Metabolic Panel (non-fasting) (01/30/2022 7:19 AM EDT) athologist Signature Glucose Lvl 237 (H) 65 - [address] [facility] mg/dL [facility] LABORATORY Comment: Diabetes: >=200 mg/dL plus symp toms BUN 34 (H) 10 - 20 mg/dL [facility]OR[facility]ORY Creatinine 1.45 0.80 - 1.50 [...] mmol/L [facility] LABOR[facility]ORY Calcium 9.5 8.5 - 10.5 [...] Organization Address City/State/[place] [address] documented in this encounter Visit Diagnoses Diagnosis ASCVD (arteriosclerotic cardiovascular d isease) Unspecified cardiovascular disease documented in this encounter Care Teams Machine Shop Helper Relationship Specialty Start Date End Date Lovely Vicente MD PCP - General 04/16/[address] [place] [address] documented as of this encounter
--- OUTSIDE RECORDS SUMMARY | 2022-03-27 09:18 | XMS_ITS | Encounter Summary ---
:1945 Author Organization [facility] Address [facility] [place] [address] Care Team Providers Name Role Phone Lovely Vicente MD Primary Care Provider Reason for Visit Auth/Cert Specialty Diagnoses / Procedures Referred By Contact Refer red To Contact Diagnoses ASCVD (arteriosclerotic cardiovascular disease) [I25.10] Vitaliy Nobles MD 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 Please follow up with your chair inspector and leveler in the next 4-6 weeks. We have made a referral to cardiac rehab. Please see the attached instructions regarding care to your right wrist access site. AttachmentsThe following attachments cannot be sent through Care Everywhere. Coronary Angiogram: Post-op (Sinhala)documented in this encounter Medications at Time of [...] Murray RN - 01/30/2022 4:54 PM EDT [facility] Short Stay Unit Discharge Note [...] recent PCI presenting for staged PCI to [facility]. The pt states he has [...] recent PCI presenting for staged PCI to [facility]. The indications, expected benefits, and [...] SSU team Don has history of prior CA and CABG. I had referred him to [...] not included. [facility] [place] [address] CORONARY ANGIOGRAM AND PERCUTANEOUS CORONARY INTERVENTION REPORT Patient: Don Fatima : 1945 MR number: [id number] Date of Service: 01/30/2022 Commercial Sewing Instructor: Vitaliy Nobles MD Fellow: KEYON Elizabeth INDICATION: [...] a long 2.0 x 26 mm [place] TUCKER stent and positioned it at the [...] using a 2.0 x 26 mm [place] TUCKER stent. This completes the revascularization ofall [...] Cardiology Zulma Dolan MD [facility] er [place] [address] (Wo rk) 05/28/2022 Laboratory Appointment Lab 05/28/2022 Office Visit Cardiology Zulma Dolan MD [facility] [place] [address] Liz Poole PA [facility] [place] [address] 06/10/2022 Office Visit Dermatology Laura Scherer MD [facility] [address]MAT [facility] [place] [address] (Wo rk) Scheduled Orders Name [...] Abs (ANC) 3.96 1.70 - [facility] 6.10 [facility] x10(3)/[facility] LABORATORY Lymphocytes % 16.3 % [facility] LABORATORY Lymphocytes Abs 0.9 0.9 - 3.2 [facility] x10(3)/[facility] LABORATORY Monocytes % 10.0 % [facility] LABORATORY Monocyte Abs 0.6 0.3 - 0.9 [facility] x10(3)/[facility] LABORATORY Eosinophils % 0.5 % [facility] LABORATORY Eosinophils Abs 0.0 0.0 - 0.4 [facility] x10(3)/[facility] LABORATORY Basophils % 0.5 % [facility] LABORATORY Basophils Abs 0.0 0.0 - 0.1 [facility] x10(3)/[facility] LABORATORY Immature Gran % 0.90 [...] 0.05 (H) 0.00 - 0.04 x10(3)/[facility] LABORATORY Specimen Anatomical Collection Method Collection Time Receive d Time (Source) Location / / Volume Laterality Blood 01/30/2022 2:12 PM 2 2:37 EDT PM EDT Resulting Agency Comment Spec In Lab Eddi Elizabeth Jr., MD HEMATOLOGY ORDERABLES Performing Organization Address City/State/[place] [address] (ABNORMAL) Hemogram (01/30/2022 2:12 PM EDT) Analysis Performed At Patho logist Time Signature WBC 5.5 4.0 - 9.5 [facility] x10(3)/[facility] LABORATORY RBC 4.30 (L) 4.58 - [facility] x10(6)/[facility] LABORATORY Hemoglobin 12.7 (L) 13.7 - [facility] 16.5 g/dL [facility] LABORATORY Hematocrit 39.4 (L) 40.5 - [facility] 48.5 % [facility] LABORATORY MCV 91.6 82.9 - [facility]1 [facility] LABORATORY MCH 29.5 27.5 - BARBARA RYAN 32.1 pg [facility] LABORATORY MCHC 32.2 32.0 - [facility] 35[facility] g/dL [facility] LABORATORY Platelets 172 145 - 357 [facility] x10(3)/[facility] LABORATORY RDWSD 54.5 (H) 36.0 - [facility]0 [facility] LABORATORY RDWCV 16.4 (H) 11.4 - [facility] 13.8 % [facility] LABORATORY MPV 9.2 7.6 - 12.9 [facility] LABORATORY nRBC % Auto 0.0 % [facility] LABORATORY nRBC Abs Auto 0.000 0.000 - [facility] x10(3)/[facility] LABORATORY Specimen Anatomical Collection Method Collection Time Receive d Time (Source) Location / / Volume Laterality Blood 01/30/2022 2:12 PM 2 2:37 EDT PM EDT Resulting Agency Comment Spec In Lab Eddi Elizabeth Jr., MD HEMATOLOGY ORDERABLES Performing Organization Address City/State/[place] [address] (ABNORMAL) Basic Metabolic Panel (non-fasting) (01/30/2022 2:12 PM EDT) P athologist Signature Glucose Lvl 163 65 - 199 [facility] mg/dL [facility] LABORATORY Comment: Diabetes: >=200 mg/dL plus symp toms BUN 30 (H) 10 - 20 mg/dL [facility] LABORATORY Creatinine 1.47 0.80 - 1.50 mg/dL [facility] OCK [facility] LABORATORY Sodium 140 135 - [...] Organization Address City/State/[place] [address] POCT Glucose (01/30/2022 1:41 PM EDT) athologist Signature POC Glucose 148 65 - 199 [facility] mg/dL [facility] LABORATORY Comment: Supplemental ranges: <140 mg/dL before meals <180 mg/dL all other times of the day Specimen Anatomical Collection Method Collection Time Receive d Time (Source) Location / / Volume Laterality Blood 01/30/2022 1:41 PM 1:41 EDT PM EDT Vitaliy Sandra Nobles MD POINT OF CARE TEST ORDERABLE S Performing Organization Address City/[facility]/ZIP Code Phon e Number [address] POCT Glucose (01/30/2022 10:48 AM EDT) P athologist Signature POC Glucose 193 65 - 199 [facility] mg/dL [facility] LABORATORY Comment: Supplemental ranges: <140 mg/dL before meals <180 mg/dL all other times of the day Specimen Anatomical Collection Method Collection Time Receive d Time (Source) Location / / Volume Laterality Blood 01/30/2022 10:48 01/30/2022 AM EDT 10:48 AM EDT Vitaliy Sandra Nobles MD POINT OF CARE TEST ORDERABLE S Performing Organization Address [facility] [place] [address] EKG 12 Lead (01/30/2022 10:33 AM EDT) Component Value Ref Range Test Analysis Performed Pathologis t Method Time At Signature Ventricular rate 64 BPM MUSE SYSTEM Atrial Rate 64 BPM MUSE SYSTEM P-R Interval 162 ms MUSE SYSTEM QRS Duration 94 ms MUSE SYSTEM Q-T Interval 422 ms MUSE SYSTEM QTC Calculated 435 ms MUSE SYSTEM (Bezet) Calculated P Hes[place]us 41 degrees MUSE SYSTEM Calculated R Hes[place]us -27 degrees MUSE SYSTEM Calculated T [place] 104 degrees MUSE SYSTEM INTERPRETATION Normal sinus rhythm MUSE SYSTEM Anterolateral infarct (cited on or before 09-DEC-2021) Abnormal ECG When compared with ECG of 10-DEC-2021 11:17, No significant change was found Confirmed by Gary Perez ([id number]) on 01/30/2022 5:57:5 2 PM Specimen Anatomical Collection Method Collection Time Receive d Time (Source) Location / / Volume Laterality 01/30/2022 10:33 01/30/2022 5:57 AM EDT PM EDT Vitaliy Sandra Nobles MD ECG ORDERABLES Performing Organization Address City/[facility]/ZIP Code Phon e Number MUSE SYSTEM CARDIAC CATHETERIZATION (01/30/2022 10:16 AM EDT) Anatomical Region Laterality Modality Other Specimen (Source) Anatomical Location Collection Method / Collectio n Time Received Time / Laterality Volume Narrative 01/30/2022 2:09 PM EDT ?[facility] ? Cardiac Cathete rization/Intervention Report ? Patient Name: Kushal, Don E. ? Procedure Date: 01/30/2022 ? A #: [id number] ? Primary Physician: Nobles, Vitaliy P ? Case #: [id number] ? File Name: [id number] ? Catheterization Order Number: [id number] ? [facility] ? Final Report [place], [place] ? Patient Name: ? Don E. Stewa rt ? ID#: ?[id number] ? : ?1945 ? Procedure Date: ? [...] ?designated as ASA Class III. Th e [facility] clinical frailty scale is 5: Mildly ?Frail. [...] was Urgent. The indication for ?the petroleum laboratory technician visit is stable kn own [...] guiding catheter an d a 3.5 [address] ??20 Mhz ?using Manual pullback. ??Imagin [...] ?? A premounted 2.00 x 26 mm [place] (TUCKER) ? was deployed wi a maximum [...] Wedelivered along 2.0 x 26 mm ORION [place] ? TUCKER stent and p ositioned it [...] dose administered prior to arrival in the petroleum laboratory technician. ?Recommended anti-platelet/anti- thrombotic regimen: ?Continue [...] ?modification of this regimen. C [facility] Interventional Cardiology for ?questions. ?The 1 year [...] using a 2.0 x 26 mm ORION [place] TUCKER stent. ?This completes the revasculariz ation [...] Note Vitaliy Nobles MD - 03/06/2022 [facility] Cardiac Catheterization/Intervention Re port Patient Name: Don Fatima Procedure Date: 01/30/2022 A #: [id number] Primary Physician: Vitaliy Nobles Case #: [id number] File Name: [id number] Catheterization Order Number: [id number] [facility] Final Report [place], [place] Patient Name: Don Fatima ID#: [...] was Urgent. The indication for the petroleum laboratory technician visit is stable known CAD. Chest [...] 1.5 guiding catheter and a 3.[address] 20 Mhz using Manual pullback. Imaging [...] atmospheres. A premounted 2.00 x 26 mm [place] (TUCKER) was deployed with a maximum inflation [...] along 2. 0 x 26 mm [place] TUCKER stent and positioned it at the [...] administered prior t o arrival in the petroleum laboratory technician. Recommended anti-platelet/anti-thrombot ic regimen: Continue aspirin [...] require modification of this regimen. Consult D [facility] Interventional [...] using a 2.0 x 26 mm [place] TUCKER stent. This completes the revascularization of [...] POC Glucose 212 (H) 65 - 199 [facility] LABORATORY Comment: Supplemental ranges: <140 mg/dL before meals <180 mg/dL all other times of the day Specimen Anatomical Collection Method Collection Time Receive d Time (Source) Location / / Volume Laterality Blood 01/30/2022 9:04 AM 2 9:04 EDT AM EDT Vitaliy Nobles MD POINT OF CARE TEST ORDERABLE S Performing Organization Address City/State/[place] [address] (ABNORMAL) POCT Glucose (01/30/2022 8:10 AM EDT) athologist Signature POC Glucose 224 (H) 65 - 199 [facility] mg/dL [facility] LABORATORY Comment: Supplemental ranges: <140 mg/dL before meals <180 mg/dL all other times of the day Specimen Anatomical Collection Method Collection Time Receive d Time (Source) Location / / Volume Laterality Blood 01/30/2022 8:10 AM 2 8:10 EDT AM EDT Vitaily Nobles MD POINT OF CARE TEST ORDERABLE S Performing Organization Address City/State/[place] [address] documented in this encounter Visit Diagnoses Diagnosis ASCVD (arteriosclerotic cardiovascular d isease) Unspecified cardiovascular disease 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 ASHD (arteriosclerotic heart disease) Coronary atherosclerosis of unspecified type of vessel, northway or graft ASCVD (arteriosclerotic cardiovascular d isease) Unspecified cardiovascular disease documented in this encounter Admitting Diagnoses Diagnosis CAD (coronary artery disease) Coronary atherosclerosis of unspecified type of vessel, northway or graft documented in this encounter Administered [...] Procedure), Routine niCARdipine (Cardene) (100 mcg/mL) dilution (SITE DIRECTOR) (CANCELED ) 0927 (Given - Provider: Vitaliy [...] (Intra-Procedure) documented in this encounter Care Teams Fish Roe Processor Relationship Specialty Start Date End Date Lovely Vicente MD PCP - General 04/16/[address] [place] [address] documented as of this encounter
--- OUTSIDE RECORDS SUMMARY | 2022-03-27 09:18 | XMS_ITS | Encounter Summary ---
:1945 Author Organization [facility] [place] [address] Care Team Providers Name Role Phone Lovely Vicente MD Primary Care Provider Encounter Details Date Type Department Care Team Description 12/15/2021 Telephone Cardiology at [facility] Barbara Mera, [place] [address] Social History Tobacco Use Types Packs/Day [...] Description 05/28/2022 Appointment Cardiology Zulma Dolan MD [facility] [place], [place] [address] (Wo rk) 05/28/2022 Laboratory Appointment Lab 05/28/2022 Office Visit Cardiology Zulma Dolan MD [facility] [place] [address] Liz Poole PA [facility] [place] [address] 06/10/2022 Office Visit Dermatology Laura Scherer MD [facility] [address] [place], [place] [address] (Wo rk) documented as of this encounter Visit Diagnoses Not on filedocumented in this encounter Care Teams Crane Follower Relationship Specialty Start Date End Date Lovely Vicente MD PCP - General 04/16/15 [facility] [address] [place] [address] documented as of this encounter
--- OUTSIDE RECORDS SUMMARY | 2022-03-27 09:18 | XMS_ITS | Encounter Summary ---
:1945 Author Organization [facility] [place] [address] Care Team Providers Name Role Phone Lovely Vicente MD Primary Care Provider Reason for Visit Reason Onset Date Comments Advice Only 01/28/2022 Encounter Details Date Type Department Care Team Description 01/28/2022 Telephone Cardiology at [facility] Chitra Angela, licensed [place] [address] Social History Tobacco Use Types Packs/Day [...] assists patient with medications. Number for [employer]orer [employer] scheduling given and she will call them to verify this information Meds reviewed. As per our form from [employer] Eliquis hold for 48 hours prior. Pt [...] Description 05/28/2022 Appointment Cardiology Zulma Dolan MD [facility] Dr [place], [place] [address] (Wo rk) 05/28/2022 Laboratory Appointment Lab 05/28/2022 Office Visit Cardiology Zulma Dolan MD [facility] [place] [address] Liz Poole PA [facility] [place] [address] 06/10/2022 Office Visit Dermatology Laura Scherer MD [facility] DR [address]-DERMAT [place], [place] [address] (Wo rk) documented as of this encounter Visit Diagnoses Not on filedocumented in this encounter Care Teams Jigman Relationship Specialty Start Date End Date Lovely Vicente MD PCP - General 04/16/[address] [place] [address] documented as of this encounter
--- OUTSIDE RECORDS SUMMARY | 2022-03-27 09:19 | XMS_ITS | Encounter Summary ---
:1945 [place] [address] Care Team Providers Name Role Phone Lovely Vicente MD Primary Care Provider Encounter Details Date Type Department Care Team Description 12/07/2021 Ancillary [facility] Lovely murillo MD [facility] [address] [address] [place], [place] [phone] (Wo lissa) [address] [phone] Social History Tobacco Use Types Packs/Day Years [...] Description 05/28/2022 Appointment Cardiology Zulma Dolan MD [facility] [address] [place] [address] (Wo rk) 05/28/2022 Laboratory Appointment Lab 05/28/2022 Office Visit Cardiology Zulma Dolan MD [facility] [place] [address] Liz Poole PA [facility] [place] [address] 06/10/2022 Office Visit Dermatology Laura Scherer MD [facility] [address]-DERMAT [place], [place] 0[address] (Wo rk) documented as of [...] Organization Address City/State/ZIP Code Phon e Number [place], [place] documented in this encounter Visit Diagnoses Not on filedocumented in this encounter Care Teams Rehabilitation Specialist Relationship Specialty Start Date End Date Lovely Vicente MD PCP - General 04/16/[address] [place] [address] documented as of this encounter
--- OUTSIDE RECORDS SUMMARY | 2022-03-27 09:19 | XMS_ITS | Encounter Summary ---
:1945 Author Organization [facility] Address [facility] [place] [address] Care Team Providers Name Role Phone Lovely Vicente MD Primary Care Provider Encounter Details Date Type Department Care Team Description 01/02/2020 Office Visit Dermatology at [facility] keratoses; Abdelrahman HOOPER MD History of melanoma; [address] [facility] History of dysplastic nevus; [place] [address] Multiple benign nevi; [phone] [facility] Seborrheic yossi [place]; RD-DERMATOLGY Skin exam for malignant neoplasm [place], [place] [address] Social History Tobacco Use Types [...] Zulma Dolan MD [facility] [address] [place], [place] [address] (Wo lissa) 05/28/2022 Laboratory Appointment Lab 05/28/2022 Office Visit Cardiology Zulma Dolan MD [facility] [place] [address] Liz Poole PA [facility] [place] [address] 06/10/2022 Office Visit Dermatology Laura Scherer MD [facility] [address]-DERMAT [place], [place] 0[address] (Wo lissa) documented as of [...] skin documented in this encounter Care Teams Underwriting Support Manager Relationship Specialty Start Date End Date Lovely Vicente MD PCP - General 04/16/15 [facility] [address] [place] [address] documented as of this encounter
--- OUTSIDE RECORDS SUMMARY | 2022-03-27 09:19 | XMS_ITS | Encounter Summary ---
:1945 Author Organization [facility] [place] [address] Care Team Providers Name Role Phone Lovely Vicente MD Primary Care Provider Encounter Details Date Type Department Care Team Description 03/20/2021 Ancillary Procedure Radiology Library at [place] [address] [place] [address] [phone] Social History Tobacco Use Types Packs/Day Years [...] Description 05/28/2022 Appointment Cardiology Zulma Dolan MD [facility] [place], [place] [address] (Wo rk) 05/28/2022 Laboratory Appointment Lab 05/28/2022 Office Visit Cardiology Zulma Dolan MD [facility] [place] [address] Liz Poole PA [facility] [place] [address] 06/10/2022 Office Visit Dermatology Laura Scherer MD [facility] ER [address]-DERMAT [place], [place] [address] (Wo rk) documented as [...] Address City/State/ZIP Code Phon e Number [place], [place] documented in this encounter Visit Diagnoses Not on filedocumented in this encounter Care Teams Java Technical Architect Relationship Specialty Start Date End Date Lovely Vicente MD PCP - General 04/16/[address] [place] [address] documented as of this encounter
--- OUTSIDE RECORDS SUMMARY | 2022-03-27 09:19 | XMS_ITS | Encounter Summary ---
:1945 Author Organization [facility] [place] [address] Care Team Providers Name Role Phone Lovely Vicente MD Primary Care Provider Encounter Details Date Type Department Care Team Description 12/08/2021 External Results Non-Invasive Cardiology Lab Mar y None [facility] [place] [address] Social History Tobacco Use Types Packs/Day [...] MD [facility] [place], [place] [address] (Wo rk) 05/28/2022 Laboratory Appointment Lab 05/28/2022 Office Visit Cardiology Zulma Dolan MD [facility] [place] [address] Liz Poole PA [facility] [place] [address] 06/10/2022 Office Visit Dermatology Laura Scherer MD [facility] [address]-DERMAT [place], [place] [address] (Wo rk) documented as of this encounter Procedures Procedure Name Priority Date/Time Associated Diagnosis Comme nts ECHO SCAN (SCAN) Routine 12/08/2021 Results for this procedure are in the resu lts section. documented in this encounter Results Scan Doc: Echo (12/08/2021) Anatomical Region Laterality Modality Cardiac Other Narrative This result has an attachment that is no t available. None MEDIA MGR SCAN EXT ORDR/RSLT documented in this encounter Visit Diagnoses Not on filedocumented in this encounter Care Teams Director Mba Relationship Specialty Start Date End Date Lovely Vicente MD PCP - General 04/16/[address] [place] [address] documented as of this encounter
--- OUTSIDE RECORDS SUMMARY | 2022-03-27 09:19 | XMS_ITS | Encounter Summary ---
:1945 Author Organization [facility] [place] [address] Care Team Providers Name Role Phone Lovely Vicente MD Primary Care Provider Encounter Details Date Type Department Care Team Description 03/20/2021 Ancillary Procedure Radiology Library at [place] [address] [place] [address] [phone] Social History Tobacco Use Types Packs/Day Years [...] Appointment Cardiology Zulma Dolan MD [facility] er [place], [place] [address] (Wo rk) 05/28/2022 Laboratory Appointment Lab 05/28/2022 Office Visit Cardiology Zulma Dolan MD [facility] [place] [address] Liz Poole PA [facility] [place] [address] 06/10/2022 Office Visit Dermatology Laura Scherer MD [facility] ER [address]-DERMAT [place], [place] [address] (Wo rk) documented as [...] Organization Address City/State/ZIP Code Phon e Number [place], [place] documented in this encounter Visit Diagnoses Not on filedocumented in this encounter Care Teams Dispatch Clerk Relationship Specialty Start Date End Date Lovely Vicente MD PCP - General 04/16/[address] [place] [address] documented as of this encounter
--- OUTSIDE RECORDS SUMMARY | 2022-03-27 09:19 | XMS_ITS | Encounter Summary ---
:1945 Author Organization [facility] [place] [address] Care Team Providers Name Role Phone Lovely Vicente MD Primary Care Provider Encounter Details Date Type Department Care Team Description 12/07/2021 Telephone Cardiology Eddi Briceño Jr., [facility] [place] [address] [facility] [phone] CARDIOLOGY DEPT [place], [place] [address] (Wo rk) Social History Tobacco [...] the OSH ED provider/staff member. Referring Location: Referring Provider: Marisela Dean, ACID RETORT OPERATOR [address] [place] [address] Don Veda Kushal 76 y.o. w / [...] bpm, LAFB, poor R wave progression, septal [place], and lateral STD, overall no significantchange from [...] Description 05/28/2022 Appointment Cardiology Zulma Dolan MD [facility] [place] [address] (Wo rk) 05/28/2022 Laboratory Appointment Lab 05/28/2022 Office Visit Cardiology Zulma Dolan MD [facility] [place] [address] Liz Poole PA [facility] [place] [address] 06/10/2022 Office Visit Dermatology Laura Scherer MD [facility] [address] [place], [place] [address] (Wo rk) documented as of this encounter Visit Diagnoses Not on filedocumented in this encounter Care Teams Licensed Embalmer Relationship Specialty Start Date End Date Lovely Vicente MD PCP - General 04/16/15 [facility] [address] [place] [address] documented as of this encounter
--- OUTSIDE RECORDS SUMMARY | 2022-03-27 09:19 | XMS_ITS | Encounter Summary ---
:1945 Author Organization [facility] [place] [address] Care Team Providers Name Role Phone Lovely Vicente MD Primary Care Provider Encounter Details Date Type Department Care Team Description 04/16/2021 Laboratory Appointment Lab 3L [facility] [place] [id number] Social History Tobacco Use Types Packs/Day Years [...] Cardiology Zulma Dolan MD [facility] er [address] [place], [place] [address] (Wo rk) 05/28/2022 Laboratory Appointment Lab 05/28/2022 Office Visit Cardiology Zulma Dolan MD [facility] [place] [address] Liz Poole PA [facility] [place] [address] 06/10/2022 Office Visit Dermatology Laura Scherer MD [facility] ER [address] [place], [place] [address] (Wo rk) documented as of this encounter [...] Organization Address City/State/[place] [address] (ABNORMAL) Basic Metabolic Panel (non-fasting) (04/16/2021 9:58 AM EDT) athologist Signature Glucose Lvl 77 65 - 199 [facility] mg/dL [facility] LABORATORY Comment: Diabetes: >=200 mg/dL plus symp toms BUN 23 (H) 10 - 20 mg/dL [facility]OR[facility]ORY Creatinine 1.26 0.80 [...] Anion Gap 9 5 - 15 mmol/L [facility] Organization Address City/State/[place] [address] documented in this encounter Visit Diagnoses Diagnosis Chronic systolic heart failure documented in this encounter Care Teams Door And Arrival Attendant Relationship Specialty Start Date End Date Lovely Vicente MD PCP - General 04/16/[address] [place] [address] documented as of this encounter
--- OUTSIDE RECORDS SUMMARY | 2022-03-27 09:19 | XMS_ITS | Encounter Summary ---
:1945 Author Organization [facility] [place] [address] Care Team Providers Name Role Phone Lovely Vicente MD Primary Care Provider Encounter Details Date Type Department Care Team Description 11/07/2019 TH Visit Cardiology at [facility] Danette Maxwell (arteriosclerotic heart disease); (TeleHealth) [facility] STACIE Gomes Cardiomyopathy, ischemic; Drive [facility] S/P CABG x 3; [place], [place] MARIA VICTORIA (obstructive sleep apnea) on CPAP [phone] CARDIOLOGY [phone] [place], [place] [address] Social History Tobacco Use Types [...] regurgitation present. 07/07/2019 - 07/21/2019 Zio Patch Finishing Pan Operator The patient had a minimum heart [...] at last check 6. Post-op atrial fibrillation [id number] (CHF, HTN, DM, vascular disease, thromboembolism) Amiodarone discontinued Continue coumadin INR managed by PCP 7. PAD 08/06/2017: Right 1st, 2nd, 3rd toe amputation 08/11/2017: Left??femoral arterial access, RLE??angiogram, Balloon angioplasty of R PT with Eleazar 2.5 x 80 10/25/2017: right popliteal-pedal bypass at [facility] Continue Coumadin 8. Hypothyrodism S/p thyroidectomy for [...] Description 05/28/2022 Appointment Cardiology Zulma Dolan MD [facility] [place], [place] [address] (Wo rk) 05/28/2022 Laboratory Appointment Lab 05/28/2022 Office Visit Cardiology Zulma Dolan MD [facility] [place] [address] Liz Poole PA [facility] [place] [address] 06/10/2022 Office Visit Dermatology Laura Scherer MD [facility] [address] [place], [place] [address] (Wo rk) documented as of this encounter Visit Diagnoses Diagnosis ASHD (arteriosclerotic heart disease) Coronary atherosclerosis of unspecified type of vessel, [place] or graft Cardiomyopathy, ischemic Other specified forms of chronic ischemi c heart disease S/P CABG x 3 Postsurgical aortocoronary bypass status MARIA VICTORIA (obstructive sleep apnea) on CPAP Obstructive sleep apnea (adult) (pediatr ic) documented in this encounter Care Teams Cloth Classer Relationship Specialty Start Date End Date Lovely Vicente MD PCP - General 04/16/[address] [place], [place] [id number] documented as of this encounter
--- OUTSIDE RECORDS SUMMARY | 2022-03-27 09:19 | XMS_ITS | Encounter Summary ---
:1945 [place] [address] Care Team Providers Name Role Phone Lovely Vicente MD Primary Care Provider Encounter Details Date Type Department Care Team Description 03/20/2021 Telephone Neurology at [facility] Hugo Gaston MD [facility] [place] [address] [place] [address] [phone] (Wo rk) Social History Tobacco Use Types [...] - 03/20/2021 6:03 PM EDT Call from [facility]. 76 M with h/o DM. [...] Gaston MD Department of Neurology Pager # [phone] documented in this encounter Plan of Treatment Upcoming Encounters Date Type Specialty Care Team Description 05/28/2022 Appointment Cardiology Zulma Dolan MD [facility] [place], [place] [address] (Wo rk) 05/28/2022 Laboratory Appointment Lab 05/28/2022 Office Visit Cardiology Zulma Dolan MD [facility] [place] [address] Liz Poole PA [facility] [place] [address] 06/10/2022 Office Visit Dermatology Laura Scherer MD [facility] DR [address] [place], [place] [address] (Wo rk) documented as of this encounter Visit Diagnoses Not on filedocumented in this encounter Care Teams Ribbon Blockmaker Relationship Specialty Start Date End Date Lovely Vicente MD PCP - General 04/16/[address] [place] [address] documented as of this encounter
--- OUTSIDE RECORDS SUMMARY | 2022-03-27 09:19 | XMS_ITS | Encounter Summary ---
:1945 Author Organization [facility] [place] [address] Care Team Providers Name Role Phone Lovely Vicente MD Primary Care Provider Encounter Details Date Type Department Care Team Description 12/07/2021 External Results Administration [facility] [place] [address] Social History Tobacco Use Types Packs/Day [...] Description 05/28/2022 Appointment Cardiology Zulma Dolan MD [facility] er [address] [place] [address] (Wo rk) 05/28/2022 Laboratory Appointment Lab 05/28/2022 Office Visit Cardiology Zulma Dolan MD [facility] [place] [address] Liz Poole PA [facility] [place] [address] 06/10/2022 Office Visit Dermatology Laura Scherer MD [facility] ER [address] [place], [place] [address] (Wo rk) documented as of [...] on filedocumented in this encounter Care Teams Unemployment Inspector Relationship Specialty Start Date End Date Lovely Vicente MD PCP - General 04/16/[address] [place] [address] documented as of this encounter
--- OUTSIDE RECORDS SUMMARY | 2022-03-27 09:19 | XMS_ITS | Encounter Summary ---
:1945 [place] [address] Care Team Providers Name Role Phone Lovely Vicente MD Primary Care Provider Encounter Details Date Type Department Care Team Description 04/16/2021 Office Visit Cardiology at [facility] Liz Poole, Chronic systolic heart [facility] [place] [address] Cardiology Dept [phone] [place], [place] [address] Social History Tobacco Use Types [...] was feeling good. 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 07/07/2019 - 07/21/2019 Zio Patch Adjunct Instructor Of Women'S Studies The patient had a minimum heart rate [...] K+ 5.2 today 6. Post-op atrial fibrillation [id number] (CHF, HTN, DM, vascular disease, thromboembolism) On warfarin - recent labile INR Will discuss with PCP, option of Luis Daniel 7. PAD 08/06/2017: Right 1st, 2nd, 3rd toe amputation 08/11/2017: Left??femoral arterial access, RLE??angiogram, Balloon angioplasty of R PT 10/25/2017: right popliteal-pedal bypass at [facility] [...] Description 05/28/2022 Appointment Cardiology Zulma Dolan MD [facility] [place], [place] [address] (Wo rk) 05/28/2022 Laboratory Appointment Lab 05/28/2022 Office Visit Cardiology Zulma Dolan MD [facility] [place] [address] Liz Poole PA [facility] [place] [address] 06/10/2022 Office Visit Dermatology Laura Scherer MD [facility] [address] [place], [place] [address] (Wo rk) documented as of this encounter Results (ABNORMAL) Basic Metabolic Panel (non-fasting) (04/16/2021 9:58 AM EDT) athologist Signature Glucose Lvl 77 65 - 199 [facility] mg/dL [facility]ORY Comment: Diabetes: >=200 mg/dL plus symp toms BUN 23 (H) 10 - 20 mg/dL [facility] Creatinine 1.26 0.80 - 1.50 mg/dL [facility] [...] Anion Gap 9 5 - 15 mmol/L [facility] [...] [place] [address] (ABNORMAL) pro-Brain Natriuretic Peptide [...] [place] [address] documented in this encounter Visit Diagnoses Diagnosis Chronic systolic heart failure documented in this encounter Care Teams Ore Dryer Relationship Specialty Start Date End Date Lovely Vicente MD PCP - General 04/16/[address] [place] [address] documented as of this encounter
--- OUTSIDE RECORDS SUMMARY | 2022-03-27 09:19 | XMS_ITS | Encounter Summary ---
:1945 Author Organization [facility] [place] [address] Care Team Providers Name Role Phone Lovely Vicente MD Primary Care Provider Reason for Referral Consultation (Routine) - Closed Specialty Diagnoses / Referred By Contact Referred To Contact Procedures Cardiac Rehabilitation Diagnoses Acute HFrEF (heart failure with reduced ejection fraction) Janneth Padilla, Cardiac Rehab, [address] [place] CARDIOLOGY DEPT. [address] [place] [address] Referral ID Status Reason Start Date Expiration Date Visits V isits Requested Authorized [id number] Closed Consult, 12/12/2021 12/12/2022 36 36 Test & Treat Reason for Visit Auth/Cert Specialty Diagnoses / Procedures Referred By Contact Refer red To Contact Diagnoses NSTEMI Procedures emerg ipi Referral ID Status Reason Start Date Expiration Date Visits Requ ested Visits Authorized [id number] 1 1 Encounter Details Date Type Department Care Team Description 12/08/2021 - Hospital Encounter Intermediate Cardiac Iker Cuevas MD [facility] [place] [address] Non-ST elevation myocardial infarction ( NSTEMI); 12/12/2021 Care Unit Ifeanyi Rene MD [facility] [place] [address] ST elevation myocardial infarction (STEM I), unspecified artery; [facility] Acute HFr EF (heart failure with reduced ejection fraction) [place] [address] Social History Tobacco Use Types Packs/Day Years [...] Don Fatima Patient Age: 76 y.o. Language: Portuguese Race: White Ethnicity: Not nor Admit date: [...] Peter PA-C Kelly LaFlamme PA-C Cardiovascular Medicine [phone] Discharge Diagnoses (Hospital Problems) and Secondary Diagnoses [...] 3.75 guiding catheter and a 3.5 Fr [facility] [place] 20 Mhz using Manual pullback. Imaging was successful. Image quality was good. The ostial LCX showed moderate diffuse atherosclerotic plaque with scattered three quadrant calcification. Measurements were performed after pre-dilation. Post Intervention: The stent was well expanded and apposed. Intravascular Ultrasound was performed in the distal LM using a 7 Fr EBU 3.75 guiding catheter and a 3.5 Fr [facility] [place] 20 Mhz using Manual pullback. Imaging was [...] may require modification of this regimen. Consult [facility] [place] Interventional Cardiology for questions. The 1 [...] and cardiomegaly. ?? TTE from [facility] 12/08/21 ? Prior Cardiac Studies: TTE [...] in 2012 who presented to [facility] with 1 week progressing breathlessness with [...] Liz Poole PA-C. ?? At [facility], respiratory distress with hypoxia 86% on [...] mg PO daily in place of lasix. Frazee is new for him and he will [...] to be ~$24/mo; affordable per patient. Post [facility] he was started on Eliquis. [...] appointments: During 8am-5pm Wednesday through Wednesday call [phone] to speak with a nurse in the cardiology clinic All other times call [phone] and ask to speak to the diet attendant reduction plant supervisor. Return to work: One week Driving: No driving for 48 hours after catheterization. Follow up Appointments: PCP Lovely Vicente MD [phone] to see patient at the end of December for annual check up. Patient to see Dr. Lorenzana at 1120 am at December 19 for a post hospital check up. Jointer [employer] Dr. De Oliveira to see you in [facility]. Left a message for office to set a date and time. Please call [phone] Nobles to see the patient for a same day cath in 2-3 weeks from now. Office to call with a date and time. For questions please call [phone] Home oxygen therapy: N/A Arrangements for VNA/home care: none Future Appointments and Orders Future Orders Complete By Expires Basic Metabolic Panel (non-fasting) [LAB15 Custom] 12/19/2021 (Approximate) 12/12/2022 Process Instructions: INCLUDES: Calcium, BUN, Creat, GFR, Glucose, Lytes Scheduling Instructions: Comments: Questions: Referral to Cardiac Rehab [PUP187 Custom] As directed Process Instructions: If no [...] appointments: During 8am-5pm Wednesday through Wednesday call [phone] to speak with a nurse in the cardiology clinic All other times call [phone] and ask to speak to the diet attendant reduction plant supervisor. Return to work: One week Driving: No driving for 48 hours after catheterization. Follow up Appointments: PCP Lovely Vicente MD [phone] to see patient at the end of December for annual check up. Patient to see Dr. Lorenzana at 1120 am at December 19 for a post hospital check up. Jo[employer] Dr. De Oliveira to see you in [facility]. Left a message for office to set a date and time. Please call [phone] Nobles to see the patient for a same day cath in 2-3 weeks from now. Office to call with a date and time. For questions please call [phone] Home oxygen therapy: N/A Arrangements for VNA/home [...] Progress Note Patient Name: Don Fatima Service: DESIGN DRAFTSMAN / PA Responsible Attending: Ifeanyi Truong MD [...] was given Lasix 80mg IV x1 in geophysical laboratory supervisor. Tolerated procedure well. Home today at 11 [...] TROPONINT 1.13* 0.92* 0.89* Pertinent Radiographic/Diagnostic Results: R/[facility] 12/10/21 Hemodynamics: Right Heart Pressures [...] congestion and cardiomegaly. TTE from [facility] 12/08/21 Prior Cardiac Studies: TTE 07/28/2019 [...] with MD Janneth Neville PA 12/12/2021 Pager [phone] Associated attestation - Ifeanyi Truong MD - [...] ratio for each meal) Desirae Jett APRN [facility] [place] Endocrinology Diabetes Management Pager [phone] 20 minutes of this 35 minute visit [...] Progress Note Patient Name: Don Fatima Service: DESIGN DRAFTSMAN / PA Responsible Attending: Iker Cuevas MD [...] was given Lasix 80mg IV x1 in geophysical laboratory supervisor. Tolerated procedure well. Review of Systems: Review [...] TROPONINT 1.13* 0.92* 0.89* Pertinent Radiographic/Diagnostic Results: R/[facility] 12/10/21 Hemodynamics: Right Heart Pressures [...] congestion and cardiomegaly. TTE from [facility] 12/08/21 Prior Cardiac Studies: TTE 07/28/2019 [...] and answered his questions. Iker Cuevas MD [facility] Total time spent on review of records prior to visit, face to face time with patient during visit, documentation, and coordination of care with other clinicians: 25 minutes. . Iker Cuevas MD - 12/10/2021 12:30 PM EDT Images from the original note were not included. Inpatient Cardiology Progress Note Patient Name: Don Fatima Service: DESIGN DRAFTSMAN / PA Responsible Attending: Iker Cuevas MD [...] was given Lasix 80mg IV x1 in geophysical laboratory supervisor. Tolerated procedure well. Review of Systems: Review [...] ??? heparin (porcine) infusion 1,600 Units/hr (12/09/21 8567) PRN Meds:ipratropium-albuteroL, senna-docusate, bisacodyL, sodium chloride 0.9 [...] TROPONINT 1.13* 0.92* 0.89* Pertinent Radiographic/Diagnostic Results: /[facility] 12/10/21 Hemodynamics: Right Heart Pressures [...] congestion and cardiomegaly. TTE from [facility] 12/08/21 Prior Cardiac Studies: TTE 07/28/2019 [...] Discussed with MD Migdalia Peter PA-C Pager #[phone] 12/10/2021 Cardiology Attending Note I have seen [...] updated and given pictures. Iker Cuevas MD [facility] Total time spent on review of records prior to visit, face to face time with patient during visit, documentation, and coordination of care with other clinicians: 35 minutes. Iker Cuevas MD - 12/09/2021 7:28 AM EDT Images from the original note were not included. Inpatient Cardiology Progress Note Patient Name: Don Fatima Service: DESIGN DRAFTSMAN / PA Responsible Attending: Iker Cuevas MD [...] ??? heparin (porcine) infusion 1,600 Units/hr (12/09/21 4043) PRN Meds:ipratropium-albuteroL, sodium chloride 0.9 % (flush), [...] congestion and cardiomegaly. TTE from [facility] 12/08/21 Prior Cardiac Studies: TTE 07/28/2019 [...] Discussed with MD Migdalia Peter PA-C Pager #[phone] 12/09/2021 Cardiology Attending Note I have seen and examined the patient. I agree with the findings above. Developed CHF early this am despite getting more iv lasix last evening. Feeling better now. INR > 2. Lungs still wet at base. Echo at [facility] showed EF 35% with mild mod MR slightly lower than last value here. -vit K 2.5 orally to facilitate correction of INR- this will take 12-24 hours to take effect -furosemide 80 mg iv now -postpone right and left heart cath until tomorrow given INR and ADHF -increase statin to achieve LDL < 70 -CPAP tonight Iker Cuevas MD [facility] Total time spent on review of records [...] in 2012 who presented to [facility] with 1 week progressing breathlessness with [...] with Liz Poole PA-C. At [facility], respiratory distress with hypoxia 86% on [...] SETUP performed by Manny Mcknight MD at [facility] OR ??? PRO AMPUTATION FOOT, TRANSMETATARSAL Right 08/09/2017 AMPUTATION, TRANSMETATARSAL (WRVU 12.71) performed by Yonathan Smith MD at [facility] OR ??? PRO CABG, ARTERIAL, SINGLE N/A 07/07/2017 @CABG, USING ARTERIAL GRAFT;SINGLE ARTERIAL GRAFT (WRVU 33.75) performed by Yuan Retana MD at [facility] OR ??? PRO CABG, ARTERY-VEIN, TWO N/A 07/07/2017 @CABG, TWO VENOUS GRAFTS & ARTERIAL GRAFT (WRVU 7.93) performed by Yuan Retana MD at [facility] OR ??? PRO COLONOSCOPY, REMV LESN, SNARE 01/16/2014 COLONOSCOPY, POLYPECTOMY, REMOVAL LESION BY SNARE performed by Nohemi Jaimes MD at [facility] ENDOSCOPY ??? PRO DRESSING CHANGE UNDER ANESTHESIA Right 08/11/2017 (MSURG) DRESSING CHANGE (FOR OTHER THAN IVAN) UNDER ANES. (WRVU 0.86) performed by Lamar Smith MD at [facility] OR ??? PRO ENDOSCOPY W/VIDEO-ASST VEIN HARVEST, CABG Right 07/07/2017 ENDOSCOPIC HARVEST VEIN(S) FOR CABG (WRVU 0.31) performed by Yuan Retana MD at [facility] OR ??? PRO THYROIDECTOMY 03/28/2013 [...] - 199 mg/dL Labs at [facility] 12/08/2021-troponin I 8004 (UN L <60), [...] Monitor for ADRs. Trend troponins. Admission EKG. [facility] 12/09; consented. TTE. Telemetry monitoring, [...] code #Diet-carb control; n.p.o. after midnight for [facility] #DVT prophy- heparin infusion #GI prophy- PPI Discussed with MD Morgan Peter PA-C APP2 pager [phone] 12/08/2021 Cardiology Attending Note I have seen [...] is type 1 due to graft or [place] coronary stenosis vs acute injury from CHF. 3. PAF: currrently in NSR. Have replaced warfarin with heparin 4. PAD: stable 5. DM: stable 6. CKD: will monitor and minimize contrast. Pt very appreciative of Dr. Yuan Retana's care in 2018. Will let him know patient is here. Iker Cuevas MD [facility] documented in this encounter Miscellaneous Notes Care [...] Type: *No Product type* / Secondary Insurance: [employer] [place] Prescription Coverage: Yes This plan was formulated [...] cath without complications. Migdalia Parker PA-C Pager #[phone] 12/10/2021 Initial Assessments - Nick Georges RN [...] COVID test: Lab Results Component Value Date [id number] Not Detected 12/08/2021 Past medical History: Past [...] 180 days) Any patient receiving care at [facility] [place] must abide by [place] law. The hierarchy [...] (i) The agent with financial power of employment attorney or a conservator appointed in accordance [...] standard, cane - straight Home Address: [address] [place] [address] [place] [address] Social & Family Supports: All names listed below confirmed with patient as current and correct Extended Emergency Contact Information Primary Emergency Contact: Kisha Fatima Address: [address] [place] [address] [place] [address] [facility] Mobile Relation: Spouse Secondary Emergency Contact: Elba Swenson Address: [address] Mobile Relation: Child Current Care Provided [...] / Secondary Insurance: [employer] [place] Prescription Coverage: Yes Preferred Pharmacy: [facility] [id number] [facility] [id number] - [place], [place] - [address] [place] [id number] [place] Status: Patient is a : unable to assess Primary Care Provider: Lovely Vicente MD [phone] Patient/Caregiver Goals of Treatment: Get out of here Potential Needs for Transition of Care: none Agency Referrals: none patient has used [facility] in the past Transportation: no concerns Transportation Anticipated: family or friend will provide Concerns to be Addressed: patient refuses services, discharge planning Assessment: Patient is [facility] Service pager [phone] for 76 y.o.??male??with h/o??CAD s/p 3vCABG (THOMPSON-LAD, [...] status on current unit. Nick Georges RN showroom consultant, Office of Care Management Pager: [phone] Brief Op Note - Vitaliy Nobles MD - 12/10/2021 8:31 AM EDT Images from the original note were not included. [facility] [place] [address] CORONARY ANGIOGRAM AND PERCUTANEOUS CORONARY INTERVENTION REPORT Patient: Don Fatima : 1945 MR number: [id number] Date of Service: 12/10/2021 City Councilman: Vitaliy Nobles MD Fellow: Rancho Woods MD [...] on heparin infusion, and continued on beta- chadwikc therapy. 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 Diabetes History: Don Fatima has had diabetes for 10 years. He has been on insulin for the last several years andis managed by his PCP. Lives in [place], [place] with his . 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 Monitoring - continue BG tid ac & hs Diet - low fat/low carb diet Exercise - weight-bearing exercise 30 min/day, as tolerated Thank you for allowing us to provide care for your patient Desirae Johnie QUINONES Endocrinology Pager [phone] 70 minutes of this 80 minute visit [...] to remain on Med/Surg floor, please page [phone] for any further questions or concerns. LANDON [...] for further details. STEPHANIE Rebolledo 12/08/2021 Pager [phone] documented in this encounter Plan of Treatment Upcoming Encounters Date Type Specialty Care Team Description 05/28/2022 Appointment Cardiology Zulma Dolan MD [facility] [place] [address] (Wo rk) 05/28/2022 Laboratory Appointment Lab 05/28/2022 Office Visit Cardiology Zulma Dolan MD [facility] [place] [address] Liz Poole PA [facility] [place] [address] 06/10/2022 Office Visit Dermatology Laura Scherer MD [facility] [address] TEJA GR-DERMAT [facility] [place] [address] (Wo rk) Scheduled Referrals Name [...] 215 (H) 65 - 199 [facility] mg/dL [facility] Comment: Supplemental ranges: <140 mg/dL before meals <180 mg/dL all other times of the day Specimen Anatomical Collection Method Collection Time Receive d Time (Source) Location / / Volume Laterality Blood 12/12/2021 7:42 AM 7:42 EDT AM EDT Ifeanyi Truong MD POINT OF CARE TEST ORDERABLE S Performing Organization Address City/State/[place] [address] (ABNORMAL) Differential, Automated (12/12/2021 4:51 AM EDT) athologist Signature Neutrophils % 75.4 % [facility] Neutr Abs (ANC) 5.95 1.70 - [facility] 6.10 [facility] x10(3)/[facility] LABORATORY Lymphocytes % 12.2 % [facility] Lymphocytes Abs 1.0 0.9 - 3.2 [facility] x10(3)/[facility] LABORATORY Monocytes % 9.5 % [facility] Monocyte Abs 0.8 0.3 - 0.9 [facility] x10(3)/[facility] LABORATORY Eosinophils % 1.8 % [facility] Eosinophils Abs 0.1 0.0 - 0.4 [facility] x10(3)/[facility] LABORATORY Basophils % 0.5 % [facility] Basophils Abs 0.0 0.0 - 0.1 [facility] x10(3)/[facility] LABORATORY Immature Gran % 0.60 % [facility] [...] Gran Abs 0.05 (H) 0.00 - 0.04 x10(3)/[facility] LABORATORY Specimen Anatomical Collection Method Collection Time Receive d Time (Source) Location / / Volume Laterality Blood 12/12/2021 4:51 AM 2 5:06 EDT AM EDT Resulting Agency Comment Spec In Lab Bijan Sun MD HEMATOLOGY ORDERABLES Performing Organization Address City/State/[place] [address] (ABNORMAL) Hemogram (12/12/2021 4:51 AM EDT) Analysis Performed At Patho logist Time Signature WBC 7.9 4.0 - 9.5 [facility] x10(3)/[facility] LABORATORY RBC 4.19 (L) 4.58 - [facility] 5.54 [facility] x10(6)/[facility] LABORATORY Hemoglobin 12.1 (L) 13.7 - [facility] 16.5 g/dL [facility] Hematocrit 36.7 (L) 40.5 - [facility] 48.5 % [facility] MCV 87.6 82.9 - [facility] 93.1 fL [facility] MCH 28.9 27.5 - [facility] 32.1 pg [facility] MCHC 33.0 32.0 - [facility] 35.7 g/dL [facility] Platelets 231 145 - 357 [facility] x10(3)/[facility] LABORATORY RDWSD 47.2 (H) 36.0 - [facility] 45.0 [facility] LABORATORY RDWCV 14.6 (H) 11.4 - [facility] 13.8 % [facility] MPV 9.5 7.6 - 12.9 [facility] LABORATORY nRBC % Auto 0.0 % [facility] nRBC Abs Auto 0.000 0.000 - [facility] 0.000 [facility] x10(3)/[facility] LABORATORY Specimen Anatomical Collection Method Collection Time Receive d Time (Source) Location / / Volume Laterality Blood 12/12/2021 4:51 AM 2 5:06 EDT AM EDT Resulting Agency Comment Spec In Lab Bijan Sun MD HEMATOLOGY ORDERABLES Performing Organization Address City/[facility]/[place] [address] (ABNORMAL) Prothrombin Time (12/12/2021 4:51 AM EDT) P athologist Signature PT 14.9 (H) 9.4 - 12.5 [facility] LABORATORY INR 1.3 [facility] Comment: [...] Cuevas MD HEMATOLOGY ORDERABLES Performing Organization Address City/[facility]/[place] [address] (ABNORMAL) BMP w/fasting Glucose (12/12/2021 4:51 AM EDT) athologist Signature Glucose 152 (H) 65 - 99 [facility] Fasting mg/dL [facility] Comment: ?Fasting* Glucose Interpretive C [...] estions. Chloride 105 98 - 107 mmol/L [facility] CO2 21 (L) 22 - 31 mmol/L [facility] Anion Gap 17 (H) 5 - 15 mmol/L [facility] Calcium 8.9 8.5 - 10.5 mg/dL [facility] Estimated GFR 38 (L) >=60 mL/min/1.73 m?? [facility] [...] Cuevas MD CHEMISTRY ORDERABLES Performing Organization Address City/[facility]/ZIP [facility] Phon e Number [address] Magnesium (12/12/2021 4:51 AM EDT) P athologist Signature Magnesium 1.02 0.69 - 1.07 [facility] mmol/L [facility] Specimen Anatomical Collection Method Collection Time Receive d Time (Source) Location / / Volume Laterality Blood 12/12/2021 4:51 AM 2 5:06 EDT AM EDT Resulting Agency Comment Spec In Lab Iker Cuevas MD CHEMISTRY ORDERABLES Performing Organization Address [facility] Phon e Number [address] POCT Glucose (12/12/2021 3:43 AM EDT) P athologist Signature POC Glucose 138 65 - 199 [facility] mg/dL [facility] Comment: Supplemental ranges: <140 mg/dL before meals <180 mg/dL all other times of the day Specimen Anatomical Collection Method Collection Time Receive d Time (Source) Location / / Volume Laterality Blood 12/12/2021 3:43 AM 2 3:43 EDT AM EDT Iker Cuevas MD POINT OF CARE TEST ORDERABLE S Performing Organization Address City/State/[place] [address] POCT Glucose (12/11/2021 11:44 PM EDT) athologist Signature POC Glucose 124 65 - 199 [facility] mg/dL [facility] Comment: Supplemental ranges: <140 mg/dL before meals <180 mg/dL all other times of the day Specimen Anatomical Collection Method Collection Time Receive d Time (Source) Location / / Volume Laterality Blood 12/11/2021 11:44 12/11/2021 PM EDT 11:44 PM EDT Iker Cuevas MD POINT OF CARE TEST ORDERABLE S Performing Organization Address City/[facility]/[place] [address] (ABNORMAL) POCT Glucose (12/11/2021 8:12 PM EDT) athologist Signature POC Glucose 200 (H) 65 - 199 [facility] mg/dL [facility] Comment: Supplemental ranges: <140 mg/dL before meals <180 mg/dL all other times of the day Specimen Anatomical Collection Method Collection Time Receive d Time (Source) Location / / Volume Laterality Blood 12/11/2021 8:12 PM 2 8:12 EDT PM EDT Iker Cuevas MD POINT OF CARE TEST ORDERABLE S Performing Organization Address City/[facility]/[place] [address] (ABNORMAL) POCT Glucose (12/11/2021 6:50 PM EDT) athologist Signature POC Glucose 245 (H) 65 - 199 [facility] mg/dL [facility] Comment: Supplemental ranges: <140 mg/dL before meals <180 mg/dL all other times of the day Specimen Anatomical Collection Method Collection Time Receive d Time (Source) Location / / Volume Laterality Blood 12/11/2021 6:50 PM 2 6:50 EDT PM EDT Iker Cuevas MD POINT OF CARE TEST ORDERABLE S Performing Organization Address City/State/[place] [address] (ABNORMAL) POCT Glucose (12/11/2021 4:00 PM EDT) athologist Signature POC Glucose 383 (H) 65 - 199 [facility] mg/dL [facility] Comment: Supplemental ranges: <140 mg/dL before meals <180 mg/dL all other times of the day Specimen Anatomical Collection Method Collection Time Receive d Time (Source) Location / / Volume Laterality Blood 12/11/2021 4:00 PM 4:00 EDT PM EDT Iker Cuevas MD POINT OF CARE TEST ORDERABLE S Performing Organization Address City/[facility]/[place] [address] (ABNORMAL) POCT Glucose (12/11/2021 12:01 PM EDT) athologist Signature POC Glucose 342 (H) 65 - 199 [facility] Comment: Supplemental ranges: <140 mg/dL before meals <180 mg/dL all other times of the day Specimen Anatomical Collection Method Collection Time Receive d Time (Source) Location / / Volume Laterality Blood 12/11/2021 12:01 12/11/2021 PM EDT 12:01 PM EDT Iker Cuevas MD POINT OF CARE TEST ORDERABLE S Performing Organization Address City/[facility]/[place] [address] COVID-19 PCR (12/11/2021 10:13 AM EDT) [facility] Method Time Signature SARS-CoV-2 Not Detected Not Detected [facility] RNA [facility] Comment: This result should be [...] diagnosis of COVID-19 is performed using the [employer] Dianna FRIEND S-CoV-2 Assay as authorized by the FDA Emergency Use Authorization (EUA). This EUA assay is intended for In-vitro Diagnostic (IVD) use with respiratory sp ecimens such as nasopharyngeal swabs collected from individuals during the ac terrence phase of infection. This assay is performed based on the instructions for use provided by [employer] and additional guidance provided by CDC [...] fact sheets at the following FDA website: https://www.fda.gov/medical-devices/lrfozrmjtgd-tolhlgc-2866-pzhzf-78-xyhntbygb- xcl-fiiqhhdijhwspl-zdrldpq-devices/zbepl-rwpzrqruazs-bjnl SARS-Cov-2 RNA Source DES[employer] Swab [facility] Specimen (Source) Anatomical Collection Method Collection Time Re ceived Time Location / / Volume Laterality Nasopharyngeal Swab 12/11/2021 10:13 0503/2022 AM EDT 11:16 AM EDT Comment: Symptoms->Surveillance Resulting Agency Comment Spec In Lab Iker Cuevas MD MICROBIOLOGY - GENERAL ORDER ROBSON Performing Organization Address City/[facility]/[place] [address] POCT Glucose (12/11/2021 7:34 AM EDT) athologist Signature POC Glucose 198 65 - 199 [facility]/dL [facility] Comment: Supplemental ranges: <140 mg/dL before meals <180 mg/dL all other times of the day Specimen Anatomical Collection Method Collection Time Receive d Time (Source) Location / / Volume Laterality Blood 12/11/2021 7:34 AM 2 7:34 EDT AM EDT Iker Cuevas MD POINT OF CARE TEST ORDERABLE S Performing Organization Address City/[facility]/[place] [address] (ABNORMAL) POCT Glucose (12/11/2021 5:07 AM EDT) P athologist Signature POC Glucose 208 (H) 65 - 199 [place] [facility] mg/dL [facility] Comment: Supplemental ranges: <140 mg/dL before meals <180 mg/dL all other times of the day Specimen Anatomical Collection Method Collection Time Receive d Time (Source) Location / / Volume Laterality Blood 12/11/2021 5:07 AM 2 5:07 EDT AM EDT Iker Cuevas MD POINT OF CARE TEST ORDERABLE S Performing Organization Address City/[facility]/[place] [address] (ABNORMAL) Differential, Automated (12/11/2021 4:28 AM EDT) [facility] Method Time Signature Neutrophils % 79.6 % [facility] Neutr Abs (ANC) 7.01 (H) 1.70 - [facility] 6.10 [facility] x10(3)/[facility] L LABORATORY Lymphocytes % 9.1 % [facility] Lymphocytes Abs 0.8 (L) 0.9 - 3.2 [facility] x10(3)/[facility] LABORATORY Monocytes % 9.2 % [facility] Monocyte Abs 0.8 0.3 - 0.9 [facility] x10(3)/[facility] LABORATORY Eosinophils % 1.3 % [facility] Eosinophils Abs 0.1 0.0 - 0.4 [facility] x10(3)/[facility] LABORATORY Basophils % 0.5 % [facility] Basophils Abs 0.0 0.0 - 0.1 [facility] x10(3)/[facility] LABORATORY Immature Gran % 0.30 % [...] [facility] Y [facility] Specimen Anatomical Collection Method Collection Time Receive d Time (Source) Location / / Volume Laterality Blood 12/11/2021 4:28 AM 4:37 EDT AM EDT Resulting Agency Comment Spec In Lab Bijan Sun MD HEMATOLOGY ORDERABLES Performing Organization Address City/State/[place] [address] (ABNORMAL) Hemogram (12/11/2021 4:28 AM EDT) Analysis Performed At Patho logist Time Signature WBC 8.8 4.0 - 9.5 [facility] x10(3)/[facility] LABORATORY RBC 4.15 (L) 4.58 - [place] 5.54 [facility] x10(6)/[facility] LABORATORY Hemoglobin 11.9 (L) 13.7 - [facility] 16.5 g/dL [facility] Hematocrit 36.9 (L) 40.5 - [facility] 48.5 % [facility] MCV 88.9 82.9 - [facility] 93.1 [facility] LABORATORY MCH 28.7 27.5 - [facility] 32.1 pg [facility] MCHC 32.2 32.0 - [facility] 35.7 g/dL [facility] Platelets 211 145 - 357 [facility] x10(3)/[facility] LABORATORY RDWSD 48.3 (H) 36.0 - [facility] 45.0 [facility] LABORATORY RDWCV 14.8 (H) 11.4 - [facility] 13.8 % [facility] MPV 9.6 7.6 - 12.9 [facility] LABORATORY nRBC % Auto 0.0 % [facility] nRBC Abs Auto 0.000 0.000 - [facility] 0.000 [facility] x10(3)/[facility] LABORATORY Specimen Anatomical Collection Method Collection Time Receive d Time (Source) Location / / Volume Laterality Blood 12/11/2021 4:28 AM 2 4:37 EDT AM EDT Resulting Agency Comment Spec In Lab Bijan Sun MD HEMATOLOGY ORDERABLES Performing Organization Address City/State/[place] [address] (ABNORMAL) Prothrombin Time (12/11/2021 4:28 AM EDT) P athologist Signature PT 17.7 (H) 9.4 - 12.5 [facility] LABORATORY INR 1.6 [facility] Comment: [...] Organization Address City/State/[place] [address] (ABNORMAL) BMP w/fasting Glucose (12/11/2021 4:28 AM EDT) athologist Signature Glucose 207 (H) 65 - 99 [facility] Fasting mg/dL [facility] Comment: ?Fasting* Glucose Interpretive C [...] Estimated GFR 48 (L) >=60 mL/min/1.73 m?? [facility] Cuevas MD CHEMISTRY ORDERABLES Performing Organization Address City/[facility]/[place] [address] Magnesium (12/11/2021 4:28 AM EDT) P athologist Signature Magnesium 1.04 0.69 - 1.07 [facility] mmol/L [facility] Specimen Anatomical Collection Method Collection Time Receive d Time (Source) Location / / Volume Laterality Blood 12/11/2021 4:28 AM 2 4:37 EDT AM EDT Resulting Agency Comment Spec In Lab Iker Cuevas MD CHEMISTRY ORDERABLES Performing Organization Address City/State/[place] [address] POCT Glucose (12/11/2021 3:58 AM EDT) athologist Signature POC Glucose 189 65 - 199 [facility] mg/dL [facility] Comment: Supplemental ranges: <140 mg/dL before meals <180 mg/dL all other times of the day Specimen Anatomical Collection Method Collection Time Receive d Time (Source) Location / / Volume Laterality Blood 12/11/2021 3:58 AM 2 3:58 EDT AM EDT Iker Cuevas MD POINT OF CARE TEST ORDERABLE S Performing Organization Address City/State/[place] [address] (ABNORMAL) POCT Glucose (12/10/2021 11:45 PM EDT) athologist Signature POC Glucose 205 (H) 65 - 199 [facility] mg/dL [facility] Comment: Supplemental ranges: <140 mg/dL before meals <180 mg/dL all other times of the day Specimen Anatomical Collection Method Collection Time Receive d Time (Source) Location / / Volume Laterality Blood 12/10/2021 11:45 12/10/2021 PM EDT 11:45 PM EDT Iker Ceuvas MD POINT OF CARE TEST ORDERABLE S Performing Organization Address City/State/[place] [address] (ABNORMAL) POCT Glucose (12/10/2021 7:54 PM EDT) athologist Signature POC Glucose 225 (H) 65 - 199 [place] [facility] mg/dL [facility] Comment: Supplemental ranges: <140 mg/dL before meals <180 mg/dL all other times of the day Specimen Anatomical Collection Method Collection Time Receive d Time (Source) Location / / Volume Laterality Blood 12/10/2021 7:54 PM 2 7:54 EDT PM EDT Iker Cuevas MD POINT OF CARE TEST ORDERABLE S Performing Organization Address City/State/[place] [address] Potassium (12/10/2021 7:46 PM EDT) athologist Signature Potassium 4.2 3.5 - 5.0 [facility] mmol/L [facility] Comment: Please note: ??Patients with [...] Organization Address City/State/[place] [address] (ABNORMAL) Basic Metabolic Panel (non-fasting) (12/10/2021 6:12 PM EDT) athologist Signature Glucose Lvl 246 (H) 65 - 199 [facility] mg/dL [facility] Comment: Diabetes: [...] [facility] CO2 22 22 - 31 mmol/L [facility] [...] Organization Address City/State/[place] [address] POCT Glucose (12/10/2021 4:59 PM EDT) P athologist Signature POC Glucose 158 65 - 199 [facility] mg/dL [facility] Comment: Supplemental ranges: <140 mg/dL before meals <180 mg/dL all other times of the day Specimen Anatomical Collection Method Collection Time Receive d Time (Source) Location / / Volume Laterality Blood 12/10/2021 4:59 PM 2 4:59 EDT PM EDT Iker Cuevas MD POINT OF CARE TEST ORDERABLE S Performing Organization Address City/State/[place] [address] (ABNORMAL) POCT Glucose (12/10/2021 12:43 PM EDT) athologist Signature POC Glucose 241 (H) 65 - 199 [facility] mg/dL [facility] Comment: Supplemental ranges: <140 mg/dL before meals <180 mg/dL all other times of the day Specimen Anatomical Collection Method Collection Time Receive d Time (Source) Location / / Volume Laterality Blood 12/10/2021 12:43 12/10/2021 PM EDT 12:43 PM EDT Iker Cuevas MD POINT OF CARE TEST ORDERABLE S Performing Organization Address City/State/ZIP Code Phon e Number [address] EKG 12 Lead (12/10/2021 11:17 AM EDT) Component Value Ref Range Test Analysis Performed Pathologis t Method Time At Signature Ventricular rate 62 BPM MUSE SYSTEM Atrial Rate 62 BPM MUSE SYSTEM P-R Interval 142 ms MUSE SYSTEM QRS Duration 100 ms MUSE SYSTEM Q-T Interval 434 ms MUSE SYSTEM QTC Calculated 440 ms MUSE SYSTEM (Bezet) Calculated P [place] 34 degrees MUSE SYSTEM Calculated R [place] -39 degrees MUSE SYSTEM Calculated T [place] 92 degrees MUSE SYSTEM INTERPRETATION Normal sinus [...] SYSTEM CARDIAC CATHETERIZATION (12/10/2021 10:54 AM EDT) Anatomical Region Laterality Modality Other Specimen (Source) Anatomical Location Collection Method / Collectio n Time Received Time / Laterality Volume Narrative 12/10/2021 12:04 PM EDT ?[facility] ? Cardiac Cathete rization/Intervention Report ? Patient Name: Don Fatima. ? Procedure Date: 12/10/2021 ? A #: [id number] ? Primary Physician: Nobles, Vitaliy P ? Case #: [id number] ? File Name: [id number] ? Catheterization Order Number: [id number] ? [facility] ? Final Report [place], [place] ? Patient Name: ? Don E. Stewa rt ? ID#: ?[id number] ? : ?1945 ? Procedure Date: ? December 10, 2021 ? Case #: ? [id number] ? Room: ? 1 ? Case Physician: [...] was ?designated as ASA Class III. e HA clinical frailty scale is 5: Mildly ?Frail. [...] procedure was Urgent. The indication for ?the geophysical laboratory supervisor visit is ACS great er than 24 hrs and cardiomyopathy. Chest ?pain symptom assessment was: At ypical Angina. ? Technique: ?A 7 SLFr sheath was inserted in the right radial artery utilizing the ?Storm technique. A 5 SLFr s lelo was [...] ?3.75 guiding catheter and a 3.5 Fr [facility] [place] 20 Mhz using Manual ?pullback. ??Imaging was [...] ?3.75 guiding catheter and a 3.5 Fr [facility] [place] 20 Mhz using Manual ?pullback. ??Imaging was [...] Procedure Note Vitaliy Nobles MD - 01/14/2022 [facility] Cardiac Catheterization/Intervention Re port Patient Name: Don Fatima Procedure Date: 12/10/2021 A #: [id number] Primary Physician: Vitaliy Nobles Case #: [id number] File Name: [id number] Catheterization Order Number: [id number] [facility] Final Report [place], [place] Patient Name: Don Fatima ID#: [id number] : 1945 Procedure Date: December 10, 2021 Case #: [id number] Room: 1 Case Physician: Vitaliy Nobles M.D. [...] e was Urgent. The indication for the geophysical laboratory supervisor visit is ACS greater than 24 hrs [...] and a 3.5 Fr [place] [facility] [place] 20 Mhz using Manual pullback. Imaging was [...] and a 3.5 Fr [place] [place] 20 Mhz using Manual pullback. Imaging was [...] modification of this regimen. Consult D [facility] Interventional Cardiology for questions. [...] 12:09 Vitaliy Nobles MD CARDIAC CATH ORDERABLES (ABNORMAL) POCT Glucose (12/10/2021 10:30 AM EDT) athologist Signature POC Glucose 262 (H) 65 - 199 [facility] mg/dL [facility] Comment: Supplemental ranges: <140 mg/dL before meals <180 mg/dL all other times of the day Specimen Anatomical Collection Method Collection Time Receive d Time (Source) Location / / Volume Laterality Blood 12/10/2021 10:30 12/10/2021 AM EDT 10:30 AM EDT Iker Cuevas MD POINT OF CARE TEST ORDERABLE S Performing Organization Address City/[facility] [place] [address] (ABNORMAL) POCT Glucose (12/10/2021 9:48 AM EDT) athologist Signature POC Glucose 279 (H) 65 - 199 [facility] mg/dL [facility] Comment: Supplemental ranges: <140 mg/dL before meals <180 mg/dL all other times of the day Specimen Anatomical Collection Method Collection Time Receive d Time (Source) Location / / Volume Laterality Blood 12/10/2021 9:48 AM 9:48 EDT AM EDT Iker Cuevas MD POINT OF CARE TEST ORDERABLE S Performing Organization Address City/State/[place] [address] (ABNORMAL) POCT Glucose (12/10/2021 9:07 AM EDT) P athologist Signature POC Glucose 268 (H) 65 - 199 [facility] mg/dL [facility] Comment: Supplemental ranges: <140 mg/dL before meals <180 mg/dL all other times of the day Specimen Anatomical Collection Method Collection Time Receive d Time (Source) Location / / Volume Laterality Blood 12/10/2021 9:07 AM 9:07 EDT AM EDT Iker Cuevas MD POINT OF CARE TEST ORDERABLE S Performing Organization Address City/State/[place] [address] (ABNORMAL) Point of Care Blood Gas Historical (12/10/2021 9:04 AM EDT) Patholo gist Method Time Signature POC pH 7.40 7.35 - [facility] 7.45 [facility] POC PCO2 40 35 - 45 [facility] mmHg [facility] POC PO2 63 (L) 85 - 104 [facility] mmHg [facility] POC Base Excess 0.0 -3.0 - 3.0 [facility] K mmol/L [facility] POC HCO3 24.8 20.0 - [facility] 26.0 [facility] mmol/[facility] LAB[facility] POC Sodium 143 135 - 145 [facility] mmol/L [facility] POC Potassium 3.7 3.5 - 5.0 [facility] mmol/L [facility] POC Ionized Ca 1.07 (L) 1.15 - [facility] 1.33 [facility] mmol/L HOSPITAL LABORATORY POC Hematocrit 30.0 (L) 40.0 - [facility] 51.0 % [facility] POC Calc Hgb 10.2 (L) 13.7 - [facility] 17.5 g/dL [facility] Comment: The calculation of hemoglobin f rom hematocrit assumes a normal MCHC. POC Bgas Loc CC LAB [facility] LABOR[facility]ORY Specimen Anatomical Collection Method Collection Time Receive d Time (Source) Location / / Volume Laterality Blood 12/10/2021 9:04 AM 2 EDT 12:00 PM EDT Ifeanyi Truong MD CHEMISTRY ORDERABLES Performing Organization Address City/[facility]/ZIP Code Phon e Number [address] (ABNORMAL) POCT Glucose (12/10/2021 7:19 AM EDT) athologist Signature POC Glucose 274 (H) 65 - 199 [facility] mg/dL [facility] Comment: Supplemental ranges: <140 mg/dL before meals <180 mg/dL all other times of the day Specimen Anatomical Collection Method Collection Time Receive d Time (Source) Location / / Volume Laterality Blood 12/10/2021 7:19 AM 2 7:19 EDT AM EDT Iker Cuevas MD POINT OF CARE TEST ORDERABLE S Performing Organization Address City/[facility]/[place] [address] Heparin (unfractionated) Level (12/10/2021 4:25 AM EDT) athologist Signature Heparin UFH 0.69 IU/mL [facility] LABORATORY Comment: Heparin (anti-Xa) levels [...] Organization Address City/State/[place] [address] [facility] [address] (ABNORMAL) Differential, Automated (12/10/2021 4:25 AM EDT) [facility] Method Time Signature Neutrophils % 79.8 % [facility] Neutr Abs (ANC) 7.47 (H) 1.70 - [facility] 6.10 [facility] x10(3)/[facility] LABORATORY Lymphocytes % 10.6 % [facility] Lymphocytes Abs 1.0 0.9 - 3.2 [facility] x10(3)/[facility] LABORATORY Monocytes % 8.4 % [facility] Monocyte Abs 0.8 0.3 - 0.9 [facility] x10(3)/[facility] LABORATORY Eosinophils % 0.6 % [facility] Eosinophils Abs 0.1 0.0 - 0.4 [facility] x10(3)/[facility] LABORATORY Basophils % 0.2 % [facility] Basophils Abs 0.0 0.0 - 0.1 [facility] x10(3)/[facility] LABORATORY Immature Gran % 0.40 % [...] Gran Abs 0.04 0.00 - 0.04 x10(3)/[facility] MAR Y [facility] Specimen Anatomical Collection Method Collection Time Receive d Time (Source) Location / / Volume Laterality Blood 12/10/2021 4:25 AM 4:34 EDT AM EDT Resulting Agency Comment Spec In Lab Morgan BROWN HEMATOLOGY ORDERABLES Performing Organization Address City/[facility]/[place] [address] (ABNORMAL) Hemogram (12/10/2021 4:25 AM EDT) Analysis Performed At Patho logist Time Signature WBC 9.4 4.0 - 9.5 [facility] x10(3)/[facility] LABORATORY RBC 3.81 (L) 4.58 - [place] 5.54 [facility] x10(6)/[facility] LABORATORY Hemoglobin 11.1 (L) 13.7 - [facility] 16.5 g/dL [facility] Hematocrit 34.0 (L) 40.5 - [facility] 48.5 % [facility] MCV 89.2 82.9 - [facility] 93.1 [facility] LABORATORY MCH 29.1 27.5 - [facility] 32.1 pg [facility] MCHC 32.6 32.0 - [facility] 35.7 g/dL [facility] Platelets 183 145 - 357 [facility] x10(3)/[facility] LABORATORY RDWSD 49.9 (H) 36.0 - [facility] 45.0 [facility] LABORATORY RDWCV 15.2 (H) 11.4 - [facility] 13.8 % [facility] MPV 9.8 7.6 - 12.9 [facility] LABORATORY nRBC % Auto 0.0 % [facility]ORATORY nRBC Abs Auto 0.000 0.000 - [facility] 0.000 [facility] x10(3)/[facility] LABORATORY Specimen Anatomical Collection Method Collection Time Receive d Time (Source) Location / / Volume Laterality Blood 12/10/2021 4:25 AM 4:34 EDT AM EDT Resulting Agency Comment Spec In Lab Morgan BROWN HEMATOLOGY ORDERABLES Performing Organization Address City/State/ZIP Code Phon e Number [place] [phone] (ABNORMAL) Prothrombin Time (12/10/2021 4:25 AM EDT) P athologist Signature PT 20.0 (H) 9.4 - 12.5 [facility] LABORATORY INR 1.7 [facility] LABORATORY Comment: [...] City/State/ZIP Code Phon e Number [place] [phone] (ABNORMAL) BMP w/fasting Glucose (12/10/2021 4:25 AM EDT) P athologist Signature Glucose 210 (H) 65 - 99 [facility] Fasting mg/dL [facility] Comment: ?Fasting* Glucose Interpretive C [...] Estimated GFR 44 (L) >=60 mL/min/1.73 m?? [facility] Organization Address City/State/[place] [address] Magnesium (12/10/2021 4:25 AM EDT) P athologist Signature Magnesium 0.95 0.69 - 1.07 [facility] mmol/L [facility] Specimen Anatomical Collection Method Collection Time Receive d Time (Source) Location / / Volume Laterality Blood 12/10/2021 4:25 AM 2 4:34 EDT AM EDT Resulting Agency Comment Spec In Lab Iker Cuevas MD CHEMISTRY ORDERABLES Performing Organization Address City/State/[place] [address] POCT Glucose (12/10/2021 1:58 AM EDT) athologist Signature POC Glucose 164 65 - 199 [facility] mg[facility]dL [facility] Comment: Supplemental ranges: <140 mg/dL before meals <180 mg/dL all other times of the day Specimen Anatomical Collection Method Collection Time Receive d Time (Source) Location / / Volume Laterality Blood 12/10/2021 1:58 AM 2 1:58 EDT AM EDT Iker Cuevas MD POINT OF CARE TEST ORDERABLE S Performing Organization Address City/[facility]/[place] [address] (ABNORMAL) POCT Glucose (12/09/2021 9:02 PM EDT) athologist Signature POC Glucose 313 (H) 65 - 199 [facility] mg/dL [facility] Comment: Supplemental ranges: <140 mg/dL before meals <180 mg/dL all other times of the day Specimen Anatomical Collection Method Collection Time Receive d Time (Source) Location / / Volume Laterality Blood 12/09/2021 9:02 PM 2 9:02 EDT PM EDT Iker Cuevas MD POINT OF CARE TEST ORDERABLE S Performing Organization Address City/State/[place] [address] Heparin (unfractionated) Level (12/09/2021 7:30 PM EDT) athologist Signature Heparin UFH 0.48 IU/mL [facility] LABORATORY Comment: Heparin (anti-Xa) levels [...] Organization Address City/State/[place] [address] (ABNORMAL) Basic Metabolic Panel (non-fasting) (12/09/2021 7:30 PM EDT) P athologist Signature Glucose Lvl 372 (H) 65 - 199 [facility] mg/dL [facility] Comment: Diabetes: [...] [facility]OR[facility]ORY CO2 22 22 - 31 mmol/L [facility] Anion Gap 14 5 - 15 mmol/L [facility] LABORATORY Calcium 8.1 (L) 8.5 - 10.5 mg/dL [facility] LABOR[facility]ORY Estimated GFR 37 (L) >=60 mL/min/1.73 m?? [facility] [...] Organization Address City/State/[place] [address] (ABNORMAL) POCT Glucose (12/09/2021 6:34 PM EDT) P athologist Signature POC Glucose 408 (H) 65 - 199 [facility]/dL [facility] Comment: Supplemental ranges: <140 mg/dL before meals <180 mg/dL all other times of the day Specimen Anatomical Collection Method Collection Time Receive d Time (Source) Location / / Volume Laterality Blood 12/09/2021 6:34 PM 2 6:34 EDT PM EDT Iker Cuevas MD POINT OF CARE TEST ORDERABLE S Performing Organization Address City/State/[place] [address] (ABNORMAL) POCT Glucose (12/09/2021 6:32 PM EDT) P athologist Signature POC Glucose 356 (H) 65 - 199 [facility] mg/dL [facility] Comment: Supplemental ranges: <140 mg/dL before meals <180 mg/dL all other times of the day Specimen Anatomical Collection Method Collection Time Receive d Time (Source) Location / / Volume Laterality Blood 12/09/2021 6:32 PM 2 6:32 EDT PM EDT Iker Cuevas MD POINT OF CARE TEST ORDERABLE S Performing Organization Address City/[facility]/[place] [address] (ABNORMAL) POCT Glucose (12/09/2021 4:19 PM EDT) athologist Signature POC Glucose 347 (H) 65 - 199 [facility] mg/dL [facility] Comment: Supplemental ranges: <140 mg/dL before meals <180 mg/dL all other times of the day Specimen Anatomical Collection Method Collection Time Receive d Time (Source) Location / / Volume Laterality Blood 12/09/2021 4:19 PM 2 4:19 EDT PM EDT Iker Cuevas MD POINT OF CARE TEST ORDERABLE S Performing Organization Address City/[facility]/[place] [address] Heparin (unfractionated) Level (12/09/2021 1:29 PM EDT) athologist Signature Heparin UFH 0.42 IU/mL [facility] LABORATORY Comment: Heparin (anti-Xa) levels [...] Cuevas MD HEMATOLOGY ORDERABLES Performing Organization Address City/[facility]/[place] [address] (ABNORMAL) POCT Glucose (12/09/2021 12:02 PM EDT) P athologist Signature POC Glucose 235 (H) 65 - 199 [facility] mg/dL [facility] Comment: Supplemental ranges: <140 mg/dL before meals <180 mg/dL all other times of the day Specimen Anatomical Collection Method Collection Time Receive d Time (Source) Location / / Volume Laterality Blood 12/09/2021 12:02 12/09/2021 PM EDT 12:02 PM EDT Iker Cuevas MD POINT OF CARE TEST ORDERABLE S Performing Organization Address City/[facility]/[place] [address] (ABNORMAL) POCT Glucose (12/09/2021 9:44 AM EDT) athologist Signature POC Glucose 214 (H) 65 - 199 [facility] mg/dL [facility] Comment: Supplemental ranges: <140 mg/dL before meals <180 mg/dL all other times of the day Specimen Anatomical Collection Method Collection Time Receive d Time (Source) Location / / Volume Laterality Blood 12/09/2021 9:44 AM 9:44 EDT AM EDT Iker Cuevas MD POINT OF CARE TEST ORDERABLE S Performing Organization Address City/[facility]/[place] [address] EKG 12 Lead (12/09/2021 7:57 AM EDT) Component Value Ref Range Test Analysis Performed Pathologis t Method Time At Signature Ventricular rate 101 BPM MUSE SYSTEM Atrial Rate 101 BPM MUSE SYSTEM P-R Interval 150 ms MUSE SYSTEM QRS Duration 112 ms MUSE SYSTEM Q-T Interval 364 ms MUSE SYSTEM QTC Calculated 471 ms MUSE SYSTEM (Bezet) Calculated P [place] 59 degrees MUSE SYSTEM Calculated R [place] -42 degrees MUSE SYSTEM Calculated T [place] 102 degrees MUSE SYSTEM INTERPRETATION Sinus tachycardia Occasional Premature ventricular com plexes MUSE SYSTEM Left axis deviation 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) Abnormal ECG When compared with ECG of 08-DEC-2021 16:40, Premature ventricular complexes are now Present Confirmed by MD Fernandez Danette ([id number]) on 12/10/2021 4:55:06 PM Specimen Anatomical Collection Method Collection Time Receive d Time (Source) Location / / Volume Laterality 12/09/2021 7:57 AM 2 4:55 EDT PM EDT Iker Cuevas MD ECG ORDERABLES Performing Organization Address City/State/ZIP Code Phon e Number MUSE SYSTEM (ABNORMAL) POCT Glucose (12/09/2021 7:28 AM EDT) P athologist Signature POC Glucose 263 (H) 65 - 199 [facility] mg/dL [facility] Comment: Supplemental ranges: <140 mg/dL before meals <180 mg/dL all other times of the day Specimen Anatomical Collection Method Collection Time Receive d Time (Source) Location / / Volume Laterality Blood 12/09/2021 7:28 AM 2 7:28 EDT AM EDT Iker Cuevas MD POINT OF CARE TEST ORDERABLE S Performing Organization Address City/State/[place] [address] (ABNORMAL) Hemoglobin A1c (12/09/2021 [...] Mellitus, Diabetes Care 2013; 36: Suppl. 1, K40-87 Est Avg Gluc See note mg/dL [place] [...] with hemoglobinopathies. Additional resources are available on [facility] ADA website. Macario HAMMOND, Ruthann J, Deysi R, et al. ??Tr anslating the A1C assay into estimated average glucose values. ??Diabetes Care 2008:31(8):0795-1153. Specimen Anatomical Collection Method Collection Time Receive d Time (Source) Location / / Volume Laterality Blood Venous Draw / 12/09/2021 6:18 AM 12/10/19 22 Unknown EDT 12:24 PM EDT Resulting Agency Comment Spec In Lab Migdalia BROWN CHEMISTRY ORDERABLES Performing Organization Address City/State/[place] [address] (ABNORMAL) Prothrombin Time (12/09/2021 6:18 AM EDT) athologist Signature PT 26.6 (H) 9.4 - 12.5 [facility] LABORATORY INR 2.3 [facility] LABORATORY Comment: [...] Migdalia BROWN HEMATOLOGY ORDERABLES Performing Organization Address City/[facility]/ZIP Code Phon e Number [address] Heparin (unfractionated) Level (12/09/2021 6:18 AM EDT) athologist Signature Heparin UFH 0.24 IU/mL [facility] LABORATORY Comment: Heparin (anti-Xa) levels [...] Cuevas MD HEMATOLOGY ORDERABLES Performing Organization Address City/[facility]/ZIP Code Phon e Number [address] (ABNORMAL) Differential, Automated (12/09/2021 6:18 AM EDT) Patholo gist Method Time Signature Neutrophils % 91.5 % [facility] LABORATORY Neutr Abs (ANC) 15.78 (H) 1.70 - [facility] 6.10 [facility] x10(3)/[facility] L LABORATORY Lymphocytes % 2.9 % [facility] LABORATORY Lymphocytes Abs 0.5 (L) 0.9 - 3.2 [facility] x10(3)/[facility] LABORATORY Monocytes % 4.9 % [facility] LABORATORY Monocyte Abs 0.8 0.3 - 0.9 [facility] x10(3)/[facility] LABORATORY Eosinophils % 0.0 % [facility] LABORATORY Eosinophils Abs 0.0 0.0 - 0.4 [facility] x10(3)/[facility] LABORATORY Basophils % 0.2 % [facility] LABORATORY Basophils Abs 0.0 0.0 - 0.1 [facility] x10(3)/[facility] LABORATORY Immature Gran % 0.50 % [...] Gran Abs 0.09 (H) 0.00 - 0.04 x10(3)/[facility] LABORATORY Specimen Anatomical Collection Method Collection Time Receive d Time (Source) Location / / Volume Laterality Blood 12/09/2021 6:18 AM 2 6:33 EDT AM EDT Resulting Agency Comment Spec In Lab Morgan BROWN HEMATOLOGY ORDERABLES Performing Organization Address City/State/[place] [address] (ABNORMAL) Hemogram (12/09/2021 6:18 AM EDT) Analysis Performed At Patho logist Time Signature WBC 17.2 (H) 4.0 - 9.5 [facility] x10(3)/[facility] LABORATORY RBC 4.32 (L) 4.58 - [facility] 5.54 [facility] x10(6)/[facility] LABORATORY Hemoglobin 12.6 (L) 13.7 - [facility] 16.5 g/dL [facility] LABORATORY Hematocrit 38.9 (L) 40.5 - [place] [facility] 48.5 % [facility] LABORATORY MCV 90.0 82.9 - [facility] 93.1 [facility] LABORATORY MCH 29.2 27.5 - [place] [facility] 32.1 pg [facility] LABORATORY MCHC 32.4 32.0 - [place] ZHA[facility]U 35.7 g/dL [facility] LABORATORY Platelets 193 145 - 357 [facility] x10(3)/[facility] LABORATORY RDWSD 50.4 (H) 36.0 - [facility] 45.0 [facility] LABORATORY RDWCV 15.2 (H) 11.4 - [facility] 13.8 % [facility] LABORATORY MPV 9.5 7.6 - 12.9 [facility] LABORATORY nRBC % Auto 0.0 % [facility] LABORATORY nRBC Abs Auto 0.000 0.000 - [facility] SU 0.000 [facility] x10(3)/[facility] LABORATORY Specimen Anatomical Collection Method Collection Time Receive d Time (Source) Location / / Volume Laterality Blood 12/09/2021 6:18 AM 6:33 EDT AM EDT Resulting Agency Comment Spec In Lab Morgan BROWN HEMATOLOGY ORDERABLES Performing Organization Address City/State/[place] [address] Lipid Panel (Reflex Direct LDL) (12/09/2021 6:18 AM EDT) P athologist Signature Chol, Total 105 mg/dL [facility] LABORATORY Comment: Lower Risk: <200 mg/dL Average Risk: 200-239 mg/dL Higher Risk: >jc=264 mg/dL Triglycerides 133 mg/dL [facility] LABORATORY Comment: Average Risk/Lower Risk: <150 mg/dL Borderline High Risk: 150-199 mg/dL High Risk: 200-499 mg/dL Very High Risk: >td=622 mg/dL HDL 42 mg/dL [facility] LABORATORY Comment: Males: ?? Higher Risk: <40 mg/dL Females: ?? Higher Risk: <50 mg/dL LDL Cholesterol 36 mg/dL [facility] LABORATORY Comment: Lowest Risk: <100 mg/dL Lower Risk: 100-129 mg/dL Borderline High Risk: 130-159 mg/dL High Risk: 160-189 mg/dL Very High Risk: >fc=863 mg/dL Chol/HDL Ratio 2.5 ratio [facility] LABORATORY Lipid Interpretation See Note [facility] LABORATORY Comment: Lipid management should be guided by a p atient? s ASCVD risk, goals and preferences. ACC/AHA Guidelines recommend high intens ity statin if clinical ASCVD or LDL greater than or equal to 190 mg/dL. [email or web address] Adults aged 40-75 with LDL 70-189 mg/dL should have their 10 year ASCVD risk estimated with the ACC/AHA ASCVD risk es timator http://tools.acc.org/HJPMW-Yvin-Bvubpkcs r/ Statin should be discussed if risk [...] Organization Address City/State/[place] [address] TSH (12/09/2021 6:18 AM EDT) athologist Signature TSH 1.60 0.27 - 4.20 [facility] mcIU/mL [facility] Comment: Reference Interval (mcIU/mL): Females: ??First Trimester: 0.23-3.88 ??Second Trimester: 0.22-3.90 ??Third Trimester: 0.44-4.66 Specimen Anatomical Collection Method Collection Time Receive d Time (Source) Location / / Volume Laterality Blood 12/09/2021 6:18 AM 2 6:33 EDT AM EDT Resulting Agency Comment Spec In Lab Iker Cuevas MD CHEMISTRY ORDERABLES Performing Organization Address City/[facility]/[place] [address] Hepatic Function Panel (12/09/2021 6:18 AM EDT) P athologist Signature Total Protein 7.3 6.1 - 8.0 [place] [facility] g/dL [facility] LABOR[facility]ORY Albumin 4.2 3.2 - 5.2 [place] [facility] g/dL [facility] AST 25 0 - 39 [facility] SU unit/L [facility] ALT 15 0 - 55 [place] [employer] unit/L [facility] Alk Phos 75 40 - 130 [place] [facility] unit/L [facility] Total 1.1 0.2 - 1.3 [place] [employer] Bilirubin mg/dL [facility] LABOR[facility] Bili, Direct 0.2 0.0 - 0.3 [place] [facility] mg/dL [facility] LABOR[facility]ORY Specimen Anatomical Collection Method Collection Time Receive d Time (Source) Location / / Volume Laterality Blood 12/09/2021 6:18 AM 2 6:33 EDT AM EDT Resulting Agency Comment Spec In Lab Iker Cuevas MD CHEMISTRY ORDERABLES Performing Organization Address City/[facility]/[place] [address] (ABNORMAL) BMP w/fasting Glucose (12/09/2021 6:18 AM EDT) P athologist Signature Glucose 235 (H) 65 - 99 [place] [facility] Fasting mg/dL [facility] LAB[facility] Comment: ?Fasting* Glucose Interpretive C [...] Estimated GFR 52 (L) >=60 mL/min/1.73 m?? [facility] [...] Organization Address City/State/ZIP Code Phon e Number [address] Magnesium (12/09/2021 6:18 AM EDT) P athologist Signature Magnesium 0.81 0.69 - 1.07 [facility] mmol/L [facility] Specimen Anatomical Collection Method Collection Time Receive d Time (Source) Location / / Volume Laterality Blood 12/09/2021 6:18 AM 2 6:33 EDT AM EDT Resulting Agency Comment Spec In Lab Iker Cuevas MD CHEMISTRY ORDERABLES Performing Organization Address City/[facility]/ZIP [facility] [place] [address] (ABNORMAL) Troponin (12/09/2021 6:18 AM EDT) athologist Signature Troponin-T 1.13 (H) 0.00 - [place] [facility] 0.00 ng/mL [facility] Comment: The 99th percentile for [...] additional sample may be indicated. Reference: Third Mcclure Definition of Myocardial Infarction. Journal of the [place] [employer] 2012;60:1581-98 Specimen Anatomical Collection Method Collection Time Receive d Time (Source) Location / / Volume Laterality Blood 12/09/2021 6:18 AM 2 6:33 EDT AM EDT Resulting Agency Comment Spec In Lab Iker Cuevas MD CHEMISTRY ORDERABLES Performing Organization Address City/State/ZIP Code Phon e Number [place] [phone] XR Chest One View [...] who have questions please contact the health memory care program resident that requested your imaging first. ? Narrative [...] ho have questions please contact the health memory care program resident that requested your imaging first. Amber Sanches MD IMG DX ORDERABLES (ABNORMAL) BLOOD GAS 2 ARTERIAL (12/09/2021 5:14 AM EDT) Analysis Performed At Patho logist Time Signature pH Art 7.43 7.35 - [facility] 7.45 [facility] pCO2 Art 36 35 - 45 [facility] mmHg [facility] pO2 Art 67 (L) 85 - 104 [facility] mmHg [facility] HCO3 Art 23.4 20.0 - [facility] 26.0 [facility] mmol/L [facility] LABORATORY BE Art -0.9 -3.0 - 3.0 [facility] mmol/L [facility] Hgb Blood Gas 13.2 (L) 13.7 - [facility] 16.5 g/dL [facility] O2HB Art 91.3 (L) 94.0 - [facility] 97.0 % [facility] COHB Art 0.4 % [facility] LABORATORY Comment: Nonsmokers: 0.5-1.5% COHB Smokers: Variable, but usually less than 10% Toxic: 20-30% COHB Lethal: Greater than 60% COHB METHB Art 0.4 <=1.5 % [facility] LABORATORY Na Whole Blood 138 135 - 145 mmol/L [facility]ORAT[facility] K Whole Blood 4.1 3.5 - 5.0 mmol/L [facility] LABORATORY Comment: Please note: Patients with WBC >100,000 may have falsely elevated Potassium levels. Contact the Clinical Chemistry L aboratory if there are any questions. ICa Whole Blood 1.09 (L) 1.15 - 1.33 mmol/L [facility] FIO2 Art 35 % [place] [...] Organization Address City/State/[place] [address] POCT Glucose (12/09/2021 4:46 AM EDT) athologist Signature POC Glucose 198 65 - 199 [facility] mg/dL [facility] Comment: Supplemental ranges: <140 mg/dL before meals <180 mg/dL all other times of the day Specimen Anatomical Collection Method Collection Time Receive d Time (Source) Location / / Volume Laterality Blood 12/09/2021 4:46 AM 2 4:46 EDT AM EDT Iker Cuevas MD POINT OF CARE TEST ORDERABLE S Performing Organization Address City/State/[place] [address] (ABNORMAL) POCT Glucose (12/09/2021 3:01 AM EDT) athologist Signature POC Glucose 225 (H) 65 - 199 [facility] mg/dL [facility] Comment: Supplemental ranges: <140 mg/dL before meals <180 mg/dL all other times of the day Specimen Anatomical Collection Method Collection Time Receive d Time (Source) Location / / Volume Laterality Blood 12/09/2021 3:01 AM 2 3:01 EDT AM EDT Iker Cuevas MD POINT OF CARE TEST ORDERABLE S Performing Organization Address City/State/[place] [address] (ABNORMAL) POCT Glucose (12/08/2021 10:55 PM EDT) athologist Signature POC Glucose 327 (H) 65 - 199 [facility] mg/dL [facility] Comment: Supplemental ranges: <140 mg/dL before meals <180 mg/dL all other times of the day Specimen Anatomical Collection Method Collection Time Receive d Time (Source) Location / / Volume Laterality Blood 12/08/2021 10:55 12/08/2021 PM EDT 10:55 PM EDT Iker Cuevas MD POINT OF CARE TEST ORDERABLE S Performing Organization Address City/State/[place] [address] Heparin (unfractionated) Level (12/08/2021 10:03 PM EDT) P athologist Signature Heparin UFH 0.18 IU/mL [facility] LABORATORY Comment: Heparin (anti-Xa) levels [...] Organization Address City/State/[place] [address] (ABNORMAL) Troponin (12/08/2021 10:03 PM EDT) P athologist Signature Troponin-T 0.92 (H) 0.00 - [facility] 0.00 ng/mL [facility] Comment: The 99th percentile for [...] additional sample may be indicated. Reference: Third Mcclure Definition of Myocardial Infarction. Journal of the [place] [employer] 2012;60:1581-98 Specimen Anatomical Collection Method Collection Time Receive d Time (Source) Location / / Volume Laterality Blood 12/08/2021 10:03 12/08/2021 PM EDT 10:31 PM EDT Resulting Agency Comment Spec In Lab Iker Cuevas MD CHEMISTRY ORDERABLES Performing Organization Address City/State/[place] [address] (ABNORMAL) POCT Glucose (12/08/2021 8:22 PM EDT) athologist Signature POC Glucose 429 (H) 65 - 199 [facility] mg/dL [facility] Comment: Supplemental ranges: <140 mg/dL before meals <180 mg/dL all other times of the day Specimen Anatomical Collection Method Collection Time Receive d Time (Source) Location / / Volume Laterality Blood 12/08/2021 8:22 PM 2 8:22 EDT PM EDT Iker Cuevas MD POINT OF CARE TEST ORDERABLE S Performing Organization Address City/[facility]/[place] [address] (ABNORMAL) POCT Glucose (12/08/2021 7:06 PM EDT) P athologist Signature POC Glucose 442 (H) 65 - 199 [facility] SU mg/dL [facility] Comment: Supplemental ranges: <140 mg/dL before meals <180 mg/dL all other times of the day Specimen Anatomical Collection Method Collection Time Receive d Time (Source) Location / / Volume Laterality Blood 12/08/2021 7:06 PM 2 7:06 EDT PM EDT Iker Cuevas MD POINT OF CARE TEST ORDERABLE S Performing Organization Address City/[facility]/[place] [address] Magnesium (12/08/2021 6:02 PM EDT) athologist Signature Magnesium 0.86 0.69 - 1.07 [facility] mmol/L [facility] Specimen Anatomical Collection Method Collection Time Receive d Time (Source) Location / / Volume Laterality Blood 12/08/2021 6:02 PM 6:36 EDT PM EDT Resulting Agency Comment Spec In Lab Iker Cuevas MD CHEMISTRY ORDERABLES Performing Organization Address City/State/[place] [address] (ABNORMAL) Basic Metabolic Panel (non-fasting) (12/08/2021 6:02 PM EDT) athologist Signature Glucose Lvl 392 (H) 65 - 199 [facility] mg/dL [facility] Comment: Diabetes: [...] [facility] LABORATORY CO2 20 (L) 22 - 31 mmol/L [facility]OR[facility] Anion Gap 16 (H) 5 - 15 mmol/L [facility] LABORATORY Calcium 8.6 8.5 - 10.5 mg/dL [facility] LABORATORY Estimated GFR 47 (L) >=60 mL/min/1.73 m?? [facility] [...] City/State/ZIP Code Phon e Number [place] [phone] (ABNORMAL) Differential, Automated (12/08/2021 6:02 PM EDT) [facility] gist Method Time Signature Neutrophils % 89.5 % [facility] LABORATORY Neutr Abs (ANC) 13.97 (H) 1.70 - [facility] 6.10 [facility] x10(3)/[facility] [facility] LAB[facility]ORY Lymphocytes % 3.7 % [facility] LABORATORY Lymphocytes Abs 0.6 (L) 0.9 - 3.2 [facility] x10(3)/[facility] LABORATORY Monocytes % 6.1 % [facility] LABORATORY Monocyte Abs 1.0 (H) 0.3 - 0.9 [facility] x10(3)/[facility] LABORATORY Eosinophils % 0.0 % [facility] LABORATORY Eosinophils Abs 0.0 0.0 - 0.4 [facility] x10(3)/[facility] LABORATORY Basophils % 0.2 % [facility] LABORATORY Basophils Abs 0.0 0.0 - 0.1 [facility] x10(3)/[facility] LABORATORY Immature Gran % 0.50 % [...] Organization Address City/State/[place] [address] (ABNORMAL) Hemogram (12/08/2021 6:02 PM EDT) Analysis Performed At Patho logist Time Signature WBC 15.6 (H) 4.0 - 9.5 [facility] x10(3)/[facility] LABORATORY RBC 4.05 (L) 4.58 - [facility] SU 5.54 [facility] x10(6)/[facility] LABORATORY Hemoglobin 11.8 (L) 13.7 - [facility] 16.5 g/dL [facility] LABORATORY Hematocrit 35.8 (L) 40.5 - [facility] 48.5 % [facility] LABORATORY MCV 88.4 82.9 - [facility]1 [facility] LABORATORY MCH 29.1 27.5 - [facility] SU 32.1 pg [facility] LABORATORY MCHC 33.0 32.0 - [facility] 35.7 g/dL [facility] LABORATORY Platelets 178 145 - 357 [facility] x10(3)/[facility] LABORATORY RDWSD 49.3 (H) 36.0 - [facility] SU 45.0 [facility] LABORATORY RDWCV 15.1 (H) 11.4 - [facility] SU 13.8 % [facility] LABORATORY MPV 10.4 7.6 - 12.9 [facility] LABORATORY nRBC % Auto 0.0 % [facility] LABORATORY nRBC Abs Auto 0.000 0.000 - [place] [facility] 0.000 [facility] x10(3)/[facility] LABORATORY Specimen Anatomical Collection Method Collection Time Receive d Time (Source) Location / / Volume Laterality Blood 12/08/2021 6:02 PM 2 6:36 EDT PM EDT Resulting Agency Comment Spec In Lab Morgan BROWN HEMATOLOGY ORDERABLES Performing Organization Address City/State/ZIP Code Ph[place] [address] (ABNORMAL) Troponin (12/08/2021 6:02 PM EDT) P athologist Signature Troponin-T 0.89 (H) 0.00 - [place] 0.00 ng/mL [facility] LABORATORY Comment: The 99th percentile for [...] additional sample may be indicated. Reference: Third Mcclure Definition of Myocardial Infarction. Journal of the [place] [employer] 2012;60:1581-98 Specimen Anatomical Collection Method Collection Time Receive d Time (Source) Location / / Volume Laterality Blood 12/08/2021 6:02 PM 2 6:36 EDT PM EDT Resulting Agency Comment Spec In Lab Iker Cuevas MD CHEMISTRY ORDERABLES Performing Organization Address City/State/ZIP Code Phon e Number [facility] [place] [address] COVID-19 PCR (12/08/2021 5:00 PM EDT) [facility] Method Time Signature SARS-CoV-2 Not Detected Not Detected [facility] RNA PCR [facility] LABORATORY Comment: This result should be [...] using the Simplexa COVID-19 Direct Assay by [employer] mar[employer] as authorized by the FDA issued [...] Department of Pathology and Laboratory Medicine at [facility], certified under the Clinical Laboratory Improvement [...] fact sheets at the following FDA website: https://www.fda.gov/medical-devices/gjewylmwsym-xaepbwx-4758-qddlo-02-ojoccxvsd- jxm-yfkoabnrmabajm-ureysdj-devices/ggukn-pqrovpyxtmh-xdue SARS-CoV-2 Source [employer] Swab [facility] LABORATORY Specimen (Source) Anatomical Collection Method Collection Time Re ceived Time Location / / Volume Laterality Nasopharyngeal Swab 12/08/2021 5:00 12/08 PM EDT 6:03 PM EDT Comment: Symptoms->Surveillance Resulting Agency Comment Spec In Lab Iker Cuevas MD MICROBIOLOGY - GENERAL ORDER [place] Performing Organization Address City/[facility] Phon e Number [place] [phone] EKG 12 Lead (12/08/2021 4:40 PM EDT) Component Value Ref Range Test Analysis Performed Pathologis t Method Time At Signature Ventricular rate 78 BPM MUSE SYSTEM Atrial Rate 78 BPM MUSE SYSTEM P-R Interval 152 ms MUSE SYSTEM QRS Duration 96 ms MUSE SYSTEM Q-T Interval 396 ms MUSE SYSTEM QTC Calculated 451 ms MUSE SYSTEM (Bezet) Calculated P [place] 44 degrees MUSE SYSTEM Calculated R [place] -31 degrees MUSE SYSTEM Calculated T [place] 124 degrees MUSE SYSTEM INTERPRETATION Normal sinus [...] / / Volume Laterality 12/08/2021 4:40 PM 4:34 EDT PM EDT Iker Cuevas MD ECG ORDERABLES Performing Organization Address City/[facility] Phon e Number MUSE SYSTEM (ABNORMAL) POCT Glucose (12/08/2021 4:34 PM EDT) P athologist Signature POC Glucose 400 (H) 65 - 199 [place] mg/dL [facility] LABORATORY Comment: Supplemental ranges: <140 mg/dL before meals <180 mg/dL all other times of the day Specimen Anatomical Collection Method Collection Time Receive d Time (Source) Location / / Volume Laterality Blood 12/08/2021 4:34 PM 4:34 EDT PM EDT Iker Cuevas MD POINT OF CARE TEST ORDERABLE S Performing Organization Address City/State/[place] [address] documented in this encounter [...] Emma Garcia RN)204 (Given - Provider: Derrick Galeas, VAMSI) 0830 (Given - Provider: Lilliana Esteban, VAMSI) [...] Emma Garcia, VAMSI)1717 (Given - Provider: Emma aGrcia RN) 0001 (Given - Provider: Derrick Galeas, VAMSI)0631 (Given - Provider: Derrick Galeas, VAMSI) 12.5 mg, Oral, EVERY 6 HOURS SCHEDULED, First dose on Wed12/08/21 at 1800, Until Discontinued, Routine 1744 (Given - Provider: Emma Garcia RN )2345 (Given - Provider: Barbara Boogie, VAMSI) pantoprazole EC (Protonix) tablet 40 mg 0735 (Given - Provider: Emma Garcia RN)0805 ([facility] Hold - Provider: Admin Adt - Reason: Transfer to a Procedural area)0900 (Not Given - Provider: Emma Garcia RN - Reason: See comment - Comment: given before cath) 0835 (Given - Provider: Emma Garcia RN) 0829 (Given - Provider: Lilliana Esteban, VAMSI) 40 mg, Oral, DAILY, First dose on Wed at 1830, Until Discontinued, DO NOT CRUSH OR OPEN, Routine 1230 ([facility] Unhold - Provider: Admin Adt) [...] Garcia, VAMSI )204 (Given - Provider: Derrick Galeas, VAMSI) 0900 [...] Routine bisacodyL (Dulcolax) suppository 10 mg 08 ([facility] Hold - Provider: Admin Adt - Reason: Transfer to a Procedural area)1230 ([facility] Unhold - Provider: Admin Adt) 10 mg, Rectal, DAILY PRN, Starting on 12/09/21 at 1629, Until Wed12/12/21 at 1312, Constipation, Routine dextrose 10% infusion(Linked Group 2) 08 (SEP Hold - Provider: Admin Adt - Reason: Transfer to a Procedural area)1230 ([facility] Unhold - Provider: Admin Adt) [...] solution 1 mg( Linked Group 2) 08 ([facility] Hold - Provider: Admin Adt - Reason: Transfer to a Procedural area)1230 ([facility] Unhold - Provider: Admin Adt) 1 mg, [...] (Glutose) 40% oral geL(Linked Group 2) 0805 ([facility] Hold - Provider: Admin Adt - Reason: Transfer to a Procedural area)1230 ([facility] Unhold - Provider: Admin Adt) 15-30 g [...] (Intra-Procedure), Routine niCARdipine (Cardene) (100 mcg/mL) dilution (ASSISTANT TERMINAL MANAGER) (CANCELED) 1030 (Given - Provider: Vitaliy Nobles [...] Reason: Transfer to a Procedural area)1230 ([facility] Unhold - Provider: Admin Adt) [...] episode. & nbsp; For persistent hypoglycemia, con geophysical laboratory supervisor longer-acting treatment for the duration of [...]
Routine documented in this encounter Care Teams Distributor Advertising Material Relationship Specialty Start Date End Date Lovely Vicente MD PCP - General 04/16/[address] [place] [address] documented as of this encounter
--- OUTSIDE RECORDS SUMMARY | 2022-03-27 09:19 | XMS_ITS | Encounter Summary ---
:1945 Author Organization [facility] [place] [address] Care Team Providers Name Role Phone Lovely Vicente MD Primary Care Provider Encounter Details Date Type Department Care Team Description 02/19/[address] [facility] Ariana Wilder LPN [address] [place] [address] Social History Tobacco Use Types Packs/Day [...] Description 05/28/2022 Appointment Cardiology Zulma Dolan MD [facility] [place], [place] [address] (Wo rk) 05/28/2022 Laboratory Appointment Lab 05/28/2022 Office Visit Cardiology Zulma Dolan MD [facility] [place] [address] Liz Poole PA [facility] [place] [address] 06/10/2022 Office Visit Dermatology Laura Scherer MD [facility] [address] [place], [place] [address] (Wo rk) documented as of this encounter Visit Diagnoses Not on filedocumented in this encounter Care Teams Development Professional Relationship Specialty Start Date End Date Lovely Vicente MD PCP - General 04/16/[address] [place] [address] documented as of this encounter
--- OUTSIDE RECORDS SUMMARY | 2022-03-27 09:19 | XMS_ITS | Encounter Summary ---
:1945 Author Organization [place] [address] Care Team Providers Name Role Phone Loveyl Vicente MD Primary Care Provider Reason for Visit Auth/Cert Specialty Diagnoses / Procedures Referred By Contact Refer red To Contact Diagnoses NSTEMI Procedures emerg ipi Referral ID Status Reason Start Date Expiration Date Visits Requ ested Visits Authorized [id number] 1 1 Encounter Details Date Type Department Care Team Description 12/10/2021 Surgery Bed Operator Asa Coulter MD CARDIAC CATHETERIZATION [facility] [place] [address] [place] [address] [phone] (Wo rk) Social History Tobacco Use Types [...] Don Fatima Patient Age: 76 y.o. Language: Micronesian Race: White Ethnicity: Not nor Admit date: [...] Peter PA-C Kelly LaFlamme PA-C Cardiovascular Medicine [phone] Discharge Diagnoses (Hospital Problems) and Secondary Diagnoses [...] 3.75 guiding catheter and a 3.5 Fr [place] 20 Mhz using Manual pullback. Imaging was successful. Image quality was good. The ostial LCX showed moderate diffuse atherosclerotic plaque with scattered three quadrant calcification. Measurements were performed after pre-dilation. Post Intervention: The stent was well expanded and apposed. Intravascular Ultrasound was performed in the distal LM using a 7 Fr EBU 3.75 guiding catheter and a 3.5 Fr [place] 20 Mhz using Manual pullback. Imaging was successful. Image quality was good. The distal LM showed moderate diffuse atherosclerotic plaque. Post Intervention: The stent was well expanded and apposed. Indication for Intervention: Coronary intervention was indicated for primary therapy for an acute myocardial infarction. The priority for the procedure was Urgent. The BANNER indication for the procedure was NSTE-ACS. LVEF [...] require modification of this regimen. Consult [facility] Interventional Cardiology for questions. The 1 year [...] vascular congestion and cardiomegaly. ?? TTE from [facility] 12/08/21 ? Prior Cardiac Studies: TTE 07/28/2019 [...] prior thyroidectomy in 2012 who presented to [facility] with 1 week progressing breathlessness with patient [...] 03/2021 with Liz Poole PA-C. ?? At [facility], respiratory distress with hypoxia 86% on room [...] and diet drinks did not cause his KS. This is what his thought was the [...] appointments: During 8am-5pm Wednesday through Wednesday call [phone] to speak with a nurse in the cardiology clinic All other times call [phone] and ask to speak to the railcar carpenter refrigeration system installer. Return to work: One week Driving: No driving for 48 hours after catheterization. Follow up Appointments: PCP Lovely Vicente MD [phone] to see patient at the end of December for annual check up. Patient to see Dr. Lorenzana at 1120 am at December 19 for a post hospital check up. Logistics Intern Dr. De Oliveira to see you in [facility]. Left a message for office to set a date and time. Please call [phone] Nobles to see the patient for a same day cath in 2-3 weeks from now. Office to call with a date and time. For questions please call [phone] Home oxygen therapy: N/A Arrangements for VNA/home care: none Future Appointments and Orders Future Orders Complete By Expires Basic Metabolic Panel (non-fasting) [LAB15 Custom] 12/19/2021 (Approximate) 12/12/2022 Process Instructions: INCLUDES: Calcium, BUN, Creat, GFR, Glucose, Lytes Scheduling Instructions: Comments: Questions: Referral to Cardiac Rehab [[id number] Custom] As directed Process Instructions: If no [...] appointments: During 8am-5pm Wednesday through Wednesday call [phone] to speak with a nurse in the cardiology clinic All other times call [phone] and ask to speak to the railcar carpenter refrigeration system installer. Return to work: One week Driving: No driving for 48 hours after catheterization. Follow up Appointments: PCP Lovely Vciente MD [phone] to see patient at the end of December for annual check up. Patient to see Dr. Lorenzana at 1120 am at December 19 for a post hospital check up. Logistics Intern Dr. De Oliveira to see you in [facility]. Left a message for office to set a date and time. Please call [phone] Nobles to see the patient for a same day cath in 2-3 weeks from now. Office to call with a date and time. For questions please call [phone] Home oxygen therapy: N/A Arrangements for VNA/home [...] Progress Note Patient Name: Don Fatima Service: CHEMISTRY FACULTY MEMBER / PA Responsible Attending: Ifeanyi Truong MD [...] pulmonary vascular congestion and cardiomegaly. TTE from [facility] 12/08/21 Prior Cardiac Studies: TTE 07/28/2019 SUMMARY: [...] with MD Janneth Neville PA 12/12/2021 Pager [phone] Associated attestation - Ifeanyi Truong MD - [...] for each meal) Desirae Jett APRN [facility] Endocrinology Diabetes Management Pager [phone] 20 minutes of this 35 minute visit [...] Progress Note Patient Name: Don Fatima Service: CHEMISTRY FACULTY MEMBER / PA Responsible Attending: Iker Cuevas MD [...] + trop. 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 DM. MARIA VICTORIA.ICM. ??? ASHD [...] Intake/Output Summary (Last 24 hours) at 12/11/2021 0901 Last data filed at 12/11/2021 0508 Gross [...] pulmonary vascular congestion and cardiomegaly. TTE from [facility] 12/08/21 Prior Cardiac Studies: TTE 07/28/2019 SUMMARY: [...] and answered his questions. Iker Cuevas MD [facility] Total time spent on review of records prior to visit, face to face time with patient during visit, documentation, and coordination of care with other clinicians: 25 minutes. . Iker Cuevas MD - 12/10/2021 12:30 PM EDT Images from the original note were not included. Inpatient Cardiology Progress Note Patient Name: Don Fatima Service: CHEMISTRY FACULTY MEMBER / PA Responsible Attending: Iker Cuevas MD Reason for continued hospitalization: NSTEMI- s/p R/LHC- PCW 27, occluded SVGs s/p PCI to ostial LCX ADHF and hypoxia- IV diuresis Active Problems: Active Hospital Problems Diagnosis ??? Admitted with 2 days of sob, hypoxemia, and + trop. 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 DM. MARIA VICTORIA.ICM. ??? ASHD [...] pulmonary vascular congestion and cardiomegaly. TTE from [facility] 12/08/21 Prior Cardiac Studies: TTE 07/28/2019 SUMMARY: [...] Discussed with MD Migdalia Peter PA-C Pager #[phone] 12/10/2021 Cardiology Attending Note I have seen [...] updated and given pictures. Iker Cuevas MD [facility] Total time spent on review of records prior to visit, face to face time with patient during visit, documentation, and coordination of care with other clinicians: 35 minutes. Iker Cuevas MD - 12/09/2021 7:28 AM EDT Images from the original note were not included. Inpatient Cardiology Progress Note Patient Name: Don Fatima Service: CHEMISTRY FACULTY MEMBER / PA Responsible Attending: Iker Cuevas MD Reason for continued hospitalization: NSTEMI- awaiting R/LHC ADHF and hypoxia- IV diuresis, R/LHC Active Problems: Active Hospital Problems Diagnosis ??? Admitted with 2 days of sob, hypoxemia, and + trop. 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 DM. MARIA VICTORIA.ICM. ??? ASHD [...] pulmonary vascular congestion and cardiomegaly. TTE from [facility] 12/08/21 Prior Cardiac Studies: TTE 07/28/2019 SUMMARY: [...] Discussed with MD Migdalia Peter PA-C Pager #[phone] 12/09/2021 Cardiology Attending Note I have seen and examined the patient. I agree with the findings above. Developed CHF early this am despite getting more iv lasix last evening. Feeling better now. INR > 2. Lungs still wet at base. Echo at [facility] showed EF 35% with mild mod MR slightly lower than last value here. -vit K 2.5 orally to facilitate correction of INR- this will take 12-24 hours to take effect -furosemide 80 mg iv now -postpone right and left heart cath until tomorrow given INR and ADHF -increase statin to achieve LDL < 70 -CPAP tonight Iker Cuevas MD [facility] Total time spent on review [...] + trop. 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 DM. MARIA VICTORIA.ICM. ??? ASHD [...] prior thyroidectomy in 2012 who presented to [facility] with 1 week progressing breathlessness with patient [...] visit 03/2021 with Liz Poole PA-C. At [facility], respiratory distress with hypoxia 86% on room [...] [facility] ??? PRO AMPUTATION FOOT, TRANSMETATARSAL Right 08/09/2017 AMPUTATION, TRANSMETATARSAL (WRVU 12.71) performed by Yonathan Smith MD at [facility] MAIN OR ??? PRO CABG, ARTERIAL, SINGLE N/A 07/07/2017 @CABG, USING ARTERIAL GRAFT;SINGLE ARTERIAL GRAFT (WRVU 33.75) performed by Yuan Retana MD at [facility] MAIN OR ??? PRO CABG, ARTERY-VEIN, TWO N/A 07/07/2017 @CABG, TWO VENOUS GRAFTS & ARTERIAL GRAFT (WRVU 7.93) performed by Yuan Retana MD at [facility] MAIN OR ??? PRO COLONOSCOPY, REMV LESN, SNARE 01/16/2014 COLONOSCOPY, POLYPECTOMY, REMOVAL LESION BY SNARE performed by Nohemi Jaimes MD at [facility] ENDOSCOPY ??? PRO DRESSING CHANGE UNDER ANESTHESIA Right 08/11/2017 (MSURG) DRESSING CHANGE (FOR OTHER THAN IVAN) UNDER ANES. (WRVU 0.86) performed by Lamar Smith MD at [facility] MAIN OR ??? PRO ENDOSCOPY W/VIDEO-ASST VEIN HARVEST, CABG Right 07/07/2017 ENDOSCOPIC HARVEST VEIN(S) FOR CABG (WRVU 0.31) performed by Yuan Retana MD at [facility] MAIN OR ??? PRO THYROIDECTOMY 03/28/2013 THYROIDECTOMY, TOTAL OR COMPLETE performed by Manny Mcknight MD at [facility] MAIN OR Significant Family History: Family [...] (H) 65 - 199 mg/dL Labs at [facility] 12/08/2021-troponin I 8004 (UN L <60), 12/07- [...] with MD Morgan Peter PA-C APP2 pager [phone] 12/08/2021 Cardiology Attending Note I have seen [...] 1 due to graft or [place] coronary stenosis vs acute injury from CHF. 3. PAF: currrently in NSR. Have replaced warfarin with heparin 4. PAD: stable 5. DM: stable 6. CKD: will monitor and minimize contrast. Pt very appreciative of Dr. Yuan Retana's care in 2018. Will let him know patient is here. Iker Cuevas MD [facility] documented in this encounter Miscellaneous Notes [...] Type: *No Product type* / Secondary Insurance: [employer] [place] Prescription Coverage: Yes This plan was [...] cath without complications. Migdalia Parker PA-C Pager #[phone] 12/10/2021 Initial Assessments - Nick Georges RN [...] COVID test: Lab Results Component Value Date [id number] Not Detected 12/08/2021 Past medical History: Past [...] spouse would be surrogate decision maker per [place] surrogate decision making law. (Only good for 180 days) Any patient receiving care at [facility] must abide by [place] law. The hierarchy for surrogate decision making [...] (i) The agent with financial power of prosecuting attorney or a conservator appointed in accordance [...] - standard, cane - straight Home Address: [address] [place] [address] [place] [address] Social & Family Supports: All names listed below confirmed with patient as current and correct Extended Emergency Contact Information Primary Emergency Contact: Kisha Fatima Address: [address] [place] [address] [place] [address] [facility] Mobile Relation: Spouse Secondary Emergency Contact: Elba Swenson Address: [place], [place] [id number] [place] [address] Mobile Relation: Child Current Care Provided by: [...] Type: *No Product type* / Secondary Insurance: [facility] Prescription Coverage: Yes Preferred Pharmacy: [facility] [place] [id number] [facility] [address] - [place], [place] - [address] [place] [id number] [place] Status: Patient is a : unable to assess Primary Care Provider: Lovely Vicente MD [phone] Patient/Caregiver Goals of Treatment: Get out of here Potential Needs for Transition of Care: none Agency Referrals: none patient has used [facility] in the past Transportation: no concerns Transportation Anticipated: family or friend will provide Concerns to be Addressed: patient refuses services, discharge planning Assessment: Patient is admitted to [facility] Service pager [phone] for 76 y.o.??male??with h/o??CAD s/p 3vCABG (THOMPSON-LAD, [...] status on current unit. Nick Georges RN film masker, Office of Care Management Pager: [phone] Brief Op Note - Vitaliy Nobles MD - 12/10/2021 8:31 AM EDT Images from the original note were not included. [facility] [place] [address] [address] CORONARY ANGIOGRAM AND PERCUTANEOUS CORONARY INTERVENTION REPORT Patient: Don Fatima : 1945 MR number: [id number] Date of Service: 12/10/2021 [place]: Vitaliy Nobles MD Fellow: [place] MD [...] review of halfway diabetes care. Diabetes History: Don Fatima has had diabetes for 10 years. He has been on insulin for the last several years andis managed by his PCP. Lives in [place], [place] with his . States that he [...] your patient Desirae Jett APRN Endocrinology Pager [phone] 70 minutes of this 80 minute visit [...] + trop. 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 DM. MARIA VICTORIA.ICM. ??? ASHD [...] for further details. STEPHANIE Rebolledo 12/08/2021 Pager [phone] documented in this encounter Plan of Treatment Upcoming Encounters Date Type Specialty Care Team Description 05/28/2022 Appointment Cardiology Zulma Dolan MD [facility] [place], [place] [address] (Wo rk) 05/28/2022 Laboratory Appointment Lab 05/28/2022 Office Visit Cardiology Zulma Dolan [place] [address] Liz Poole PA [facility] [place] [address] 06/10/2022 Office Visit Dermatology Laura Scherer MD [facility] DR [address] [place], [place] [address] (Wo rk) Scheduled Referrals Name [...] POC Glucose 215 (H) 65 - 199 [facility] mg/dL [facility] Comment: Supplemental ranges: <140 mg/dL before meals <180 mg/dL all other times of the day Specimen Anatomical Collection Method Collection Time Receive d Time (Source) Location / / Volume Laterality Blood 12/12/2021 7:42 AM 7:42 EDT AM EDT Ifeanyi Truong MD POINT OF CARE TEST ORDERABLE S Performing Organization Address City/State/[place] [address] (ABNORMAL) Differential, Automated (12/12/2021 4:51 AM EDT) athologist Signature Neutrophils % 75.4 % [facility] Neutr Abs (ANC) 5.95 1.70 - [facility] [address] [facility] x10(3)/[facility] LABORATORY Lymphocytes % 12.2 % [facility] Lymphocytes Abs 1.0 0.9 - 3.2 [facility] x10(3)/[facility] LABORATORY Monocytes % 9.5 % [facility]OR[facility]ORY Monocyte Abs 0.8 0.3 - 0.9 [facility] x10(3)/[facility] LABORATORY Eosinophils % 1.8 % [facility] Eosinophils Abs 0.1 0.0 - 0.4 [facility] x10(3)/[facility] LABORATORY Basophils % 0.5 % [facility] Basophils Abs 0.0 0.0 - 0.1 [facility] x10(3)/[facility] LABORATORY Immature [...] / Volume Laterality Blood 12/12/2021 4:51 AM 05/20/202 2 5:06 EDT AM EDT Resulting Agency Comment Spec In Lab Bijan Sun MD HEMATOLOGY ORDERABLES Performing Organization Address City/State/ZIP Code Phon e Number [address] (ABNORMAL) Hemogram (12/12/2021 4:51 AM EDT) Analysis Performed At Patho logist Time Signature WBC 7.9 4.0 - 9.5 [facility] x[facility](3[facility] LABORATORY RBC 4.19 (L) 4.58 - [place] [address] [facility] x10(6)/[facility] LABORATORY Hemoglobin 12.1 (L) 13.7 - [facility] 16.5 g/dL [facility] Hematocrit 36.7 (L) 40.5 - [facility] 48.5 % [facility] MCV 87.6 82.9 - [facility] 93.1 [facility] LABORATORY MCH 28.9 27.5 - [place] 32.1 pg [facility] MCHC 33.0 32.0 - [place] 35.7 g/dL [facility] Platelets 231 145 - 357 [facility] x10(3)/[facility] LABORATORY RDWSD 47.2 (H) 36.0 - [facility] RYAN 45.0 [facility] LABORATORY RDWCV 14.6 (H) 11.4 - [facility] RYAN 13.8 % [facility] MPV 9.5 7.6 - 12.9 [facility] nRBC % Auto 0.0 % [facility] nRBC Abs Auto 0.000 0.000 - [place] 0.[address] [facility] x10(3)/[facility] LABORATORY Specimen Anatomical Collection Method Collection Time Receive d Time (Source) Location / / Volume Laterality Blood 12/12/2021 4:51 AM 2 5:06 EDT AM EDT Resulting Agency Comment Spec In Lab Bijan Sun MD HEMATOLOGY ORDERABLES Performing Organization Address City/State/ZIP Code Phon e Number [place], [place] [id number] [place] [address] (ABNORMAL) Prothrombin Time (12/12/2021 4:51 AM EDT) athologist Signature PT 14.9 (H) 9.4 - 12.5 [facility] sec [facility] INR 1.3 [facility] Comment: An [...] Address City/State/[place] [address] (ABNORMAL) BMP w/fasting Glucose (12/12/2021 4:51 AM EDT) athologist Signature Glucose 152 (H) 65 - 99 [facility] Fasting mg/dL [facility] Comment: ?Fasting* Glucose Interpretive C riteria [...] of Diabetes Mellitus, Position Statement from the [place] [employer]. ??Diabete s Care, Volume 33, Supplement 1, Jul 2009 BUN 52 (H) 10 - 20 mg/dL [facility] Creatinine 1.72 (H) 0.80 - 1.50 mg/dL [facility] Sodium 143 135 - 145 mmol/L [facility] Potassium 3.9 3.5 - 5.0 mmol/L [facility] Comment: Please note: ??Patients with WBC >100,00 0 may have falsely elevated Potassium levels. ??For accurate Potassium quantif ication in these patients send serum separator tube (gold top) for subsequent determinations. ??Contact the Clinical Chemistry Laboratory if there are any qu estions. Chloride 105 98 - 107 mmol/L [facility] CO2 21 (L) 22 - 31 mmol/L [facility] Anion Gap 17 (H) 5 - 15 mmol/L [facility] Calcium 8.9 8.5 - 10.5 mg/dL [facility] Estimated GFR 38 (L) >=60 mL/min/1.73 m?? [facility] [...] Organization Address City/State/[place] [address] Magnesium (12/12/2021 4:51 AM EDT) athologist Signature Magnesium 1.02 0.69 - 1.07 [facility]/L [facility] Specimen Anatomical Collection Method Collection Time Receive d Time (Source) Location / / Volume Laterality Blood 12/12/2021 4:51 AM 2 5:06 EDT AM EDT Resulting Agency Comment Spec In Lab Iker Cuevas MD CHEMISTRY ORDERABLES Performing Organization Address City/State/ZIP Code Phon e Number [address] POCT Glucose (12/12/2021 3:43 AM EDT) athologist Signature POC Glucose 138 65 - 199 [place] mg/dL [facility] Comment: Supplemental ranges: <140 mg/dL before meals <180 mg/dL all other times of the day Specimen Anatomical Collection Method Collection Time Receive d Time (Source) Location / / Volume Laterality Blood 12/12/2021 3:43 AM 2 3:43 EDT AM EDT Iker Cuevas MD POINT OF CARE TEST ORDERABLE S Performing Organization Address City/State/ZIP Code Phon e Number [address] POCT Glucose (12/11/2021 11:44 PM EDT) athologist Signature POC Glucose 124 65 - 199 [facility] [place] mg/dL [facility] Comment: Supplemental ranges: <140 mg/dL before meals <180 mg/dL all other times of the day Specimen Anatomical Collection Method Collection Time Receive d Time (Source) Location / / Volume Laterality Blood 12/11/2021 11:44 12/11/2021 PM EDT 11:44 PM EDT Iker Cuevas MD POINT OF CARE TEST ORDERABLE S Performing Organization Address City/State/ZIP Code Phon e Number [address] (ABNORMAL) POCT Glucose (12/11/2021 8:12 PM EDT) athologist Signature POC Glucose 200 (H) 65 - 199 [place] mg/dL [facility] Comment: Supplemental ranges: <140 mg/dL before meals <180 mg/dL all other times of the day Specimen Anatomical Collection Method Collection Time Receive d Time (Source) Location / / Volume Laterality Blood 12/11/2021 8:12 PM 2 8:12 EDT PM EDT Iker Cuevas MD POINT OF CARE TEST ORDERABLE S Performing Organization Address City/State/[place] [address] (ABNORMAL) POCT Glucose (12/11/2021 6:50 PM EDT) athologist Signature POC Glucose 245 (H) 65 - 199 [place] mg/dL [facility] Comment: Supplemental ranges: <140 mg/dL before meals <180 mg/dL all other times of the day Specimen Anatomical Collection Method Collection Time Receive d Time (Source) Location / / Volume Laterality Blood 12/11/2021 6:50 PM 2 6:50 EDT PM EDT Iker Cuevas MD POINT OF CARE TEST ORDERABLE S Performing Organization Address City/State/[place] [address] (ABNORMAL) POCT Glucose (12/11/2021 4:00 PM EDT) athologist Signature POC Glucose 383 (H) 65 - 199 [place] mg/dL [facility] Comment: Supplemental ranges: <140 mg/dL before meals <180 mg/dL all other times of the day Specimen Anatomical Collection Method Collection Time Receive d Time (Source) Location / / Volume Laterality Blood 12/11/2021 4:00 PM 2 4:00 EDT PM EDT Iker Cuevas MD POINT OF CARE TEST ORDERABLE S Performing Organization Address City/State/[place] [address] (ABNORMAL) POCT Glucose (12/11/2021 12:01 PM EDT) athologist Signature POC Glucose 342 (H) 65 - 199 [place] mg/dL [facility] Comment: Supplemental ranges: <140 mg/dL before meals <180 mg/dL all other times of the day Specimen Anatomical Collection Method Collection Time Receive d Time (Source) Location / / Volume Laterality Blood 12/11/2021 12:01 12/11/2021 PM EDT 12:01 PM EDT Iker Cuevas MD POINT OF CARE TEST ORDERABLE S Performing Organization Address City/State/ZIP Code [place] [address] COVID-19 PCR (12/11/2021 10:13 AM EDT) [facility] Method Time Signature SARS-CoV-2 Not Detected [...] diagnosis of COVID-19 is performed using the [employer] S-CoV-2 Assay as authorized by the FDA Emergency Use Authorization (EUA). This EUA assay is intended for In-vitro Diagnostic (IVD) use with respiratory sp ecimens such as nasopharyngeal swabs collected from individuals during the ac [place] phase of infection. This assay is performed based on the instructions for use provided by [employer] and additional guidance provided by CDC [...] required or requested by public health a [facility], positive specimens may be sent [...] clinical management guidance information are available at [facility] Coronavirus Disease 2019 (COVID-19) webpage under Information fo r Healthcare Professionals (https://www.cdc.gov/coronavirus/2019-nc ov/hcp/index.html) Additional information about this and ot her EUA tests can be found in provider and patient fact sheets at the following FDA website: https://www.fda.gov/medical-devices/fnmlvsvewbb-znpmdtm-4335-qyuka-56-rhcjinxzk- sco-nzxugkhfvkjqfo-uyrgmkj-devices/gnakh-xnscqsyhxsp-bevm SARS-Cov-2 RNA Source CHEMISTRY FACULTY MEMBER Swab [facility] Specimen (Source) Anatomical Collection Method Collection Time Re ceived Time Location / / Volume Laterality Nasopharyngeal Swab 12/11/2021 10:13 0503/2022 AM EDT 11:16 AM EDT Comment: Symptoms->Surveillance Resulting Agency Comment Spec In Lab Iker Cuevas MD MICROBIOLOGY - GENERAL ORDER [place] Performing Organization Address City/State/[place] [address] POCT Glucose (12/11/2021 7:34 AM EDT) athologist Signature POC Glucose 198 65 - 199 [facility] mg/dL [facility] Comment: Supplemental ranges: <140 mg/dL before meals <180 mg/dL all other times of the day Specimen Anatomical Collection Method Collection Time Receive d Time (Source) Location / / Volume Laterality Blood 12/11/2021 7:34 AM 2 7:34 EDT AM EDT Iker Cuevas MD POINT OF CARE TEST ORDERABLE S Performing Organization Address City/State/[place] [address] (ABNORMAL) POCT Glucose (12/11/2021 5:07 AM EDT) P athologist Signature POC Glucose 208 (H) 65 - [address] [facility] mg/dL [facility] Comment: Supplemental ranges: <140 mg/dL before meals <180 mg/dL all other times of the day Specimen Anatomical Collection Method Collection Time Receive d Time (Source) Location / / Volume Laterality Blood 12/11/2021 5:07 AM 2 5:07 EDT AM EDT Iker Cuevas MD POINT OF CARE TEST ORDERABLE S Performing Organization Address City/State/[place] [address] (ABNORMAL) Differential, Automated (12/11/2021 4:28 AM EDT) Patholo gist Method Time Signature Neutrophils % 79.6 % [facility] Neutr Abs (ANC) 7.01 (H) 1.70 - [facility] 6.[address] [facility] x10(3)/[facility] LABORATORY Lymphocytes % 9.1 % [facility] Lymphocytes Abs 0.8 (L) 0.9 - 3.2 [facility] x10(3)/[facility] LABORATORY Monocytes % 9.2 % [facility] Monocyte Abs 0.8 0.3 - 0.9 [facility] x10(3)/[facility] LABORATORY Eosinophils % 1.3 % [facility] Eosinophils Abs 0.1 0.0 - 0.4 [facility] x10(3)/[facility] LABORATORY Basophils % 0.5 % [facility] Basophils Abs 0.0 0.0 - 0.1 [facility] x10(3)/[facility] LABORATORY Immature [...] Melisa Gran Abs 0.03 0.00 - 0.04 x10(3)/[facility] MAR Y [facility] LAB[facility]ORY Specimen Anatomical Collection Method Collection Time Receive d Time (Source) Location / / Volume Laterality Blood 12/11/2021 4:28 AM 4:37 EDT AM EDT Resulting Agency Comment Spec In Lab Bijan Sun MD HEMATOLOGY ORDERABLES Performing Organization Address City/State/ZIP Code Phon e Number [place] [phone] (ABNORMAL) Hemogram (12/11/2021 4:28 AM EDT) Analysis Performed At Patho logist Time Signature WBC 8.8 4.0 - 9.5 [facility] x10(3)/[facility] LABORATORY RBC 4.15 (L) 4.58 - [facility] [address] [facility] x10(6)/[facility] LABORATORY Hemoglobin 11.9 (L) 13.7 - [facility] 16.5 g/dL [facility] Hematocrit 36.9 (L) 40.5 - [facility] RYAN 48.5 % [facility] MCV 88.9 82.9 - [facility] 93.1 [facility] LABORATORY MCH 28.7 27.5 - [place] 32.1 pg [facility] MCHC 32.2 32.0 - [facility] 35.7 g/dL [facility] Platelets 211 145 - 357 [facility] x[facility](3)/[facility] LABORATORY RDWSD 48.3 (H) 36.0 - [place] 45.0 [facility] LABORATORY RDWCV 14.8 (H) 11.4 - [facility] 13.8 % [facility] MPV 9.6 7.6 - 12.9 [facility] LABORATORY nRBC % Auto 0.0 % [facility] nRBC Abs Auto 0.000 0.000 - [facility] 0.[address] [facility] x10(3)/[facility] LABORATORY Specimen Anatomical Collection Method Collection Time Receive d Time (Source) Location / / Volume Laterality Blood 12/11/2021 4:28 AM 2 4:37 EDT AM EDT Resulting Agency Comment Spec In Lab Bijan Sun MD HEMATOLOGY ORDERABLES Performing Organization Address City/[facility] [place] [address] (ABNORMAL) Prothrombin Time (12/11/2021 4:28 AM EDT) P athologist Signature PT 17.7 (H) 9.4 - 12.5 [facility] LABORATORY INR 1.6 [facility] Comment: An [...] Cuevas MD HEMATOLOGY ORDERABLES Performing Organization Address City/[facility]/ZIP Code Phon e Number [place] [phone]OS[address] Drive (ABNORMAL) BMP w/fasting Glucose (12/11/2021 4:28 AM EDT) P athologist Signature Glucose 207 (H) 65 - 99 [facility] Fasting mg/dL [facility] Comment: ?Fasting* Glucose Interpretive C riteria [...] of Diabetes Mellitus, Position Statement from the [employer]. ??Diabete s Care, Volume 33, Supplement 1, Jul 2009 BUN 49 (H) 10 - 20 mg/dL [facility] Creatinine 1.43 0.80 - 1.50 mg/dL [facility] Sodium 142 135 - 145 mmol/L [facility] Potassium 4.0 3.5 - 5.0 mmol/L [facility] mg/dL [facility] Estimated GFR 48 (L) >=60 mL/min/1.73 m?? [facility] Cuevas MD CHEMISTRY ORDERABLES Performing Organization Address City/[facility]/[place] [address] Magnesium (12/11/2021 4:28 AM EDT) athologist Signature Magnesium 1.04 0.69 - 1.07 [facility] mmol/L [facility] Specimen Anatomical Collection Method Collection Time Receive d Time (Source) Location / / Volume Laterality Blood 12/11/2021 4:28 AM 2 4:37 EDT AM EDT Resulting Agency Comment Spec In Lab Iker Cuevas MD CHEMISTRY ORDERABLES Performing Organization Address City/[facility]/[place] [address] POCT Glucose (12/11/2021 3:58 AM EDT) athologist Signature POC Glucose 189 65 - 199 [place] mg/dL [facility] Comment: Supplemental ranges: <140 mg/dL before meals <180 mg/dL all other times of the day Specimen Anatomical Collection Method Collection Time Receive d Time (Source) Location / / Volume Laterality Blood 12/11/2021 3:58 AM 2 3:58 EDT AM EDT Iker Cuevas MD POINT OF CARE TEST ORDERABLE S Performing Organization Address City/[facility]/ZIP Code Phon e Number [address] (ABNORMAL) POCT Glucose (12/10/2021 11:45 PM EDT) athologist Signature POC Glucose 205 (H) 65 - 199 [place] mg/dL [facility] Comment: Supplemental ranges: <140 mg/dL before meals <180 mg/dL all other times of the day Specimen Anatomical Collection Method Collection Time Receive d Time (Source) Location / / Volume Laterality Blood 12/10/2021 11:45 12/10/2021 PM EDT 11:45 PM EDT Iker Cuevas MD POINT OF CARE TEST ORDERABLE S Performing Organization Address City/[facility]/[place] [address] (ABNORMAL) POCT Glucose (12/10/2021 7:54 PM EDT) athologist Signature POC Glucose 225 (H) 65 - 199 [facility] mg/dL [facility] Comment: Supplemental ranges: <140 mg/dL before meals <180 mg/dL all other times of the day Specimen Anatomical Collection Method Collection Time Receive d Time (Source) Location / / Volume Laterality Blood 12/10/2021 7:54 PM 2 7:54 EDT PM EDT Iker Cuevas MD POINT OF CARE TEST ORDERABLE S Performing Organization Address City/[facility]/ZIP [facility] [place] [address] Potassium (12/10/2021 7:46 PM EDT) athologist Signature Potassium 4.2 3.5 - 5.0 [facility] mmol/L [facility] Comment: Please note: ??Patients with WBC [...] Cuevas MD CHEMISTRY ORDERABLES Performing Organization Address City/[facility]/ZIP [facility] [place] [address] (ABNORMAL) Basic Metabolic Panel (non-fasting) (12/10/2021 6:12 PM EDT) athologist Signature Glucose Lvl 246 (H) 65 - 199 [facility] mg/dL [facility] LABORATORY [...] mmol/L [facility] CO2 22 22 - 31 mmol/L [facility] Anion Gap 16 (H) 5 - 15 mmol/L [facility]ORY Calcium 8.3 (L) 8.5 - 10.5 mg/dL [facility] LAB[facility] Estimated GFR 49 (L) >=60 mL/min/1.73 m?? [facility] [...] Address City/State/ZIP Code Phon e Number [address] POCT Glucose (12/10/2021 4:59 PM EDT) P athologist Signature POC Glucose 158 65 - 199 [place] mg/dL [facility] Comment: Supplemental ranges: <140 mg/dL before meals <180 mg/dL all other times of the day Specimen Anatomical Collection Method Collection Time Receive d Time (Source) Location / / Volume Laterality Blood 12/10/2021 4:59 PM 2 4:59 EDT PM EDT Iker Cuevas MD POINT OF CARE TEST ORDERABLE S Performing Organization Address City/[facility]/[place] [address] (ABNORMAL) POCT Glucose (12/10/2021 12:43 PM EDT) P athologist Signature POC Glucose 241 (H) 65 - 199 [place] mg/dL [facility] Comment: Supplemental ranges: <140 mg/dL before meals <180 mg/dL all other times of the day Specimen Anatomical Collection Method Collection Time Receive d Time (Source) Location / / Volume Laterality Blood 12/10/2021 12:43 12/10/2021 PM EDT 12:43 PM EDT Iker Cuevas MD POINT OF CARE TEST ORDERABLE S Performing Organization Address City/State/[place] [address] EKG 12 Lead (12/10/2021 11:17 AM EDT) Component Value Ref Range Test Analysis Performed Pathologis t Method Time At Signature Ventricular rate 62 BPM MUSE SYSTEM Atrial Rate 62 BPM MUSE SYSTEM P-R Interval 142 ms MUSE SYSTEM QRS Duration 100 ms MUSE SYSTEM Q-T Interval 434 ms MUSE SYSTEM QTC Calculated 440 ms MUSE SYSTEM (Bezet) Calculated P [place] 34 degrees MUSE SYSTEM Calculated R [place] -39 degrees MUSE SYSTEM Calculated T [place] 92 degrees MUSE SYSTEM INTERPRETATION Normal sinus [...] Laterality Volume Narrative 12/10/2021 12:04 PM EDT ?[facility] ? Cardiac Cathete rization/Intervention Report ? Patient Name: Don Fatima. ? Procedure Date: 12/10/2021 ? A #: [id number] ? Primary Physician: Nobles, Vitaliy P ? Case #: [id number] ? File Name: [id number] ? Catheterization Order Number: [id number] ? [facility] ? Final Report [place], [place] ? Patient Name: ? Don E. Stewa rt ? ID#: ?[id number] ? : ?1945 ? Procedure Date: ? [...] ?3.75 guiding catheter and a 3.5 Fr [facility] [place] 20 Mhz using Manual ?pullback. ??Imaging was [...] ?3.75 guiding catheter and a 3.5 Fr [facility] [place] 20 Mhz using Manual ?pullback. ??Imaging was [...] require ?modification of this regimen. C [facility] Interventional Cardiology for ?questions. ?The 1 [...] Procedure Note Vitaliy Nobles MD - 01/14/2022 [facility] Cardiac Catheterization/Intervention Re port Patient Name: Don Fatima Procedure Date: 12/10/2021 A #: [id number] Primary Physician: Vitaliy Nobles Case #: [id number] File Name: [id number] Catheterization Order Number: [id number] [facility] Final Report [place], [place] Patient Name: Don Fatima ID#: [...] was designated as ASA Class III. The [facility] c linical frailty scale is 5: [...] and a 3.5 Fr [facility] [place] 20 Mhz using Manual pullback. Imaging was [...] and a 3.5 Fr [facility] [place] 20 Mhz using Manual pullback. Imaging was [...] require modification of this regimen. Consult D [facility] Interventional Cardiology for questions. The [...] POC Glucose 262 (H) 65 - 199 [facility] mg/dL [facility] Comment: Supplemental ranges: <140 mg/dL before meals <180 mg/dL all other times of the day Specimen Anatomical Collection Method Collection Time Receive d Time (Source) Location / / Volume Laterality Blood 12/10/2021 10:30 12/10/2021 AM EDT 10:30 AM EDT Iker Cuevas MD POINT OF CARE TEST ORDERABLE S Performing Organization Address City/State/[place] [address] (ABNORMAL) POCT Glucose (12/10/2021 9:48 AM EDT) P athologist Signature POC Glucose 279 (H) 65 - [address] [facility] mg/dL [facility] Comment: Supplemental ranges: <140 mg/dL before meals <180 mg/dL all other times of the day Specimen Anatomical Collection Method Collection Time Receive d Time (Source) Location / / Volume Laterality Blood 12/10/2021 9:48 AM 2 9:48 EDT AM EDT Iker Cuevas MD POINT OF CARE TEST ORDERABLE S Performing Organization Address City/[facility]/[place] [address] (ABNORMAL) POCT Glucose (12/10/2021 9:07 AM EDT) P athologist Signature POC Glucose 268 (H) 65 - [address] [facility] mg/dL [facility] Comment: Supplemental ranges: <140 mg/dL before meals <180 mg/dL all other times of the day Specimen Anatomical Collection Method Collection Time Receive d Time (Source) Location / / Volume Laterality Blood 12/10/2021 9:07 AM 2 9:07 EDT AM EDT Iker Cuevas MD POINT OF CARE TEST ORDERABLE S Performing Organization Address City/State/[place] [address] (ABNORMAL) Point of Care Blood Gas Historical (12/10/2021 9:04 AM EDT) Patholo gist Method Time Signature POC pH 7.40 7.35 - [facility] 7.45 [facility] POC PCO2 40 35 - 45 [facility] LABORATORY POC PO2 63 (L) 85 - 104 [facility] LABORATORY POC Base Excess 0.0 -3.0 - 3.0 [facility] K mmol/L [facility] POC HCO3 24.8 20.0 - [facility] 26.[address] [facility] POC Sodium 143 135 - 145 [facility] mmol/L [facility]ORY POC Potassium 3.7 3.5 - 5.0 [facility] mmol/L [facility] POC Ionized Ca 1.07 (L) 1.15 - [facility] 1.[address] [facility] POC Hematocrit 30.0 (L) 40.0 - [facility] 51.0 % [facility] POC Calc Hgb 10.2 (L) 13.7 - [facility] 17.5 g/dL [facility] Comment: The calculation of hemoglobin f rom hematocrit assumes a normal MCHC. POC Bgas Loc CC LAB [facility] LABORATORY Specimen Anatomical Collection Method Collection Time Receive d Time (Source) Location / / Volume Laterality Blood 12/10/2021 9:04 AM 2 EDT 12:00 PM EDT Ifeanyi Truong MD CHEMISTRY ORDERABLES Performing Organization Address City/State/[place] [address] (ABNORMAL) POCT Glucose (12/10/2021 7:19 AM EDT) P athologist Signature POC Glucose 274 (H) 65 - 199 [facility] mg/dL [facility] Comment: Supplemental ranges: <140 mg/dL before meals <180 mg/dL all other times of the day Specimen Anatomical Collection Method Collection Time Receive d Time (Source) Location / / Volume Laterality Blood 12/10/2021 7:19 AM 2 7:19 EDT AM EDT Iker Cuevas MD POINT OF CARE TEST ORDERABLE S Performing Organization Address City/State/[place] [address] Heparin (unfractionated) Level (12/10/2021 [...] City/State/ZIP Code Phon e Number [place] [phone] Drive (ABNORMAL) Differential, Automated (12/10/2021 4:25 AM EDT) Patholo gist Method Time Signature Neutrophils % 79.8 % [facility] Neutr Abs (ANC) 7.47 (H) 1.70 - [facility] 6.[address] [facility] x10(3)/[facility] LABORATORY Lymphocytes % 10.6 % [facility]ORY Lymphocytes Abs 1.0 0.9 - 3.2 [facility] x10(3)/[facility] LABORATORY Monocytes % 8.4 % [facility]ORY Monocyte Abs 0.8 0.3 - 0.9 [facility] x10(3)/[facility] LABORATORY Eosinophils % 0.6 % [facility]ORY Eosinophils Abs 0.1 0.0 - 0.4 [facility] x10(3)/[facility] LABORATORY Basophils % 0.2 % [facility]ORY Basophils Abs 0.0 0.0 - 0.1 [facility] x10(3)/[facility] LABORATORY Immature [...] Melisa Gran Abs 0.04 0.00 - 0.04 x10(3)/[facility] MAR Y [facility] LABORATORY Specimen Anatomical Collection Method Collection Time Receive d Time (Source) Location / / Volume Laterality Blood 12/10/2021 4:25 AM 4:34 EDT AM EDT Resulting Agency Comment Spec In Lab Morgan BROWN HEMATOLOGY ORDERABLES Performing Organization Address City/State/[place] [address] (ABNORMAL) Hemogram (12/10/2021 4:25 AM EDT) Analysis Performed At Patho logist Time Signature WBC 9.4 4.0 - 9.5 [facility] x10(3)/[facility] LABORATORY RBC 3.81 (L) 4.58 - [facility] 5.[address] [facility] x10(6)/[facility] LABORATORY Hemoglobin 11.1 (L) 13.7 - [facility] 16.5 g/dL [facility] Hematocrit 34.0 (L) 40.5 - [facility] 48.5 % [facility] LAB[facility]ATORY MCV 89.2 82.9 - [facility] 93.1 [facility] LABORATORY MCH 29.1 27.5 - [facility] 32.1 pg [facility] LAB[facility]ORY MCHC 32.6 32.0 - [facility] 35.7 g/dL [facility] Platelets 183 145 - 357 [facility] x10(3)/[facility] LABORATORY RDWSD 49.9 (H) 36.0 - [facility] RYAN 45.0 [facility] LABORATORY RDWCV 15.2 (H) 11.4 - [facility] RYAN 13.8 % [facility] LABORATORY MPV 9.8 7.6 - 12.9 [facility] LABORATORY nRBC % Auto 0.0 % [facility] LABORATORY nRBC Abs Auto 0.000 0.000 - [place] 0.[address] [facility] x10(3)/[facility] LABORATORY Specimen Anatomical Collection Method Collection Time Receive d Time (Source) Location / / Volume Laterality Blood 12/10/2021 4:25 AM 2 4:34 EDT AM EDT Resulting Agency Comment Spec In Lab Morgan BROWN HEMATOLOGY ORDERABLES Performing Organization Address City/[facility]/ZIP [facility] Phon e Number [address] (ABNORMAL) Prothrombin Time (12/10/2021 4:25 AM EDT) P athologist Signature PT 20.0 (H) 9.4 - 12.5 [facility] LABORATORY INR 1.7 [facility] LABORATORY Comment: An [...] Cuevas MD HEMATOLOGY ORDERABLES Performing Organization Address City/[facility]/[place] [address] (ABNORMAL) BMP w/fasting Glucose (12/10/2021 4:25 AM EDT) P athologist Signature Glucose 210 (H) 65 - 99 [facility] Fasting mg/dL [facility] Comment: ?Fasting* Glucose Interpretive C riteria [...] of Diabetes Mellitus, Position Statement from the [employer]. ??Diabete s Care, Volume 33, Supplement 1, Jul 2009 BUN 54 (H) 10 - 20 mg/dL [facility] LABORATORY Creatinine 1.52 (H) 0.80 - 1.50 mg/dL [facility] LABORATORY Sodium 140 135 - 145 mmol/L [facility] LABORATORY Potassium 3.9 3.5 - 5.0 mmol/L [facility] [...] Calcium 8.0 (L) 8.5 - 10.5 mg/dL [facility] LABORATORY Estimated GFR 44 (L) >=60 mL/min/1.73 m?? [facility] Cuevas MD CHEMISTRY ORDERABLES Performing Organization Address City/[facility]/ZIP Code Phon e Number [address] Magnesium (12/10/2021 4:25 AM EDT) athologist Signature Magnesium 0.95 0.69 - 1.07 [facility] mmol/L [facility] LABORATORY Specimen Anatomical Collection Method Collection Time Receive d Time (Source) Location / / Volume Laterality Blood 12/10/2021 4:25 AM 2 4:34 EDT AM EDT Resulting Agency Comment Spec In Lab Iker Cuevas MD CHEMISTRY ORDERABLES Performing Organization Address City/[facility]/[place] [address] POCT Glucose (12/10/2021 1:58 AM EDT) athologist Signature POC Glucose 164 65 - 199 [place] mg/dL [facility] Comment: Supplemental ranges: <140 mg/dL before meals <180 mg/dL all other times of the day Specimen Anatomical Collection Method Collection Time Receive d Time (Source) Location / / Volume Laterality Blood 12/10/2021 1:58 AM 2 1:58 EDT AM EDT Iker Cuevas MD POINT OF CARE TEST ORDERABLE S Performing Organization Address City/[facility]/ZIP Code Phon e Number [address] (ABNORMAL) POCT Glucose (12/09/2021 9:02 PM EDT) athologist Signature POC Glucose 313 (H) 65 - 199 [place] mg/dL [facility] Comment: Supplemental ranges: <140 mg/dL before meals <180 mg/dL all other times of the day Specimen Anatomical Collection Method Collection Time Receive d Time (Source) Location / / Volume Laterality Blood 12/09/2021 9:02 PM 2 9:02 EDT PM EDT Iker Cuevas MD POINT OF CARE TEST ORDERABLE S Performing Organization Address City/[facility]/[place] [address] Heparin (unfractionated) Level (12/09/2021 [...] Organization Address City/State/[place] [address] (ABNORMAL) Basic Metabolic Panel (non-fasting) (12/09/2021 7:30 PM EDT) athologist Signature Glucose Lvl 372 (H) 65 - 199 [facility] mg/dL [facility] Comment: [...] mmol/L [facility]ORY CO2 22 22 - 31 mmol/L [facility]OR[facility]ORY Anion Gap 14 5 - 15 mmol/L [facility] LABOR[facility]ORY Calcium 8.1 (L) 8.5 - 10.5 mg/dL [facility] LABORATORY Estimated GFR 37 (L) >=60 mL/min/1.73 m?? [facility] [...] Organization Address City/State/[place] [address] (ABNORMAL) POCT Glucose (12/09/2021 6:34 PM EDT) athologist Signature POC Glucose 408 (H) 65 - [address] [facility] [facility] [facility] mg/dL [facility] Comment: Supplemental ranges: <140 mg/dL before meals <180 mg/dL all other times of the day Specimen Anatomical Collection Method Collection Time Receive d Time (Source) Location / / Volume Laterality Blood 12/09/2021 6:34 PM 2 6:34 EDT PM EDT Iker Cuevas MD POINT OF CARE TEST ORDERABLE S Performing Organization Address City/State/[place] [address] (ABNORMAL) POCT Glucose (12/09/2021 6:32 PM EDT) athologist Signature POC Glucose 356 (H) 65 - [address] [facility]/dL [facility] Comment: Supplemental ranges: <140 mg/dL before meals <180 mg/dL all other times of the day Specimen Anatomical Collection Method Collection Time Receive d Time (Source) Location / / Volume Laterality Blood 12/09/2021 6:32 PM 2 6:32 EDT PM EDT Iker Cuevas MD POINT OF CARE TEST ORDERABLE S Performing Organization Address City/State/[place] [address] (ABNORMAL) POCT Glucose (12/09/2021 4:19 PM EDT) athologist Signature POC Glucose 347 (H) 65 - 199 [facility] mg/dL [facility] Comment: Supplemental ranges: <140 mg/dL before meals <180 mg/dL all other times of the day Specimen Anatomical Collection Method Collection Time Receive d Time (Source) Location / / Volume Laterality Blood 12/09/2021 4:19 PM 2 4:19 EDT PM EDT Iker Cuevas MD POINT OF CARE TEST ORDERABLE S Performing Organization Address City/State/[place] [address] Heparin (unfractionated) Level (12/09/2021 1:29 PM EDT) athologist Signature Heparin UFH 0.42 IU/mL [facility]ORY Comment: Heparin (anti-Xa) levels should be deter mined in a plasma sample that has been drawn 6 hours after a dose change to grea roximate steady-state for continuous heparin infusions. Indication [...] Address City/State/[place] [address] (ABNORMAL) POCT Glucose (12/09/2021 12:02 PM EDT) athologist Signature POC Glucose 235 (H) 65 - [address] [facility] mg/dL [facility] Comment: Supplemental ranges: <140 mg/dL before meals <180 mg/dL all other times of the day Specimen Anatomical Collection Method Collection Time Receive d Time (Source) Location / / Volume Laterality Blood 12/09/2021 12:02 12/09/2021 PM EDT 12:02 PM EDT Iker Cuevas MD POINT OF CARE TEST ORDERABLE S Performing Organization Address City/State/[place] [address] (ABNORMAL) POCT Glucose (12/09/2021 9:44 AM EDT) athologist Signature POC Glucose 214 (H) 65 - [address] [facility] mg/dL [facility] Comment: Supplemental ranges: <140 mg/dL before meals <180 mg/dL all other times of the day Specimen Anatomical Collection Method Collection Time Receive d Time (Source) Location / / Volume Laterality Blood 12/09/2021 9:44 AM 2 9:44 EDT AM EDT Iker Cuevas MD POINT OF CARE TEST ORDERABLE S Performing Organization Address [facility]/[place] [address] EKG 12 Lead (12/09/2021 7:57 AM EDT) Component Value Ref Range Test Analysis Performed Pathologis t Method Time At Signature Ventricular rate 101 BPM MUSE SYSTEM Atrial Rate 101 BPM MUSE SYSTEM P-R Interval 150 ms MUSE SYSTEM QRS Duration 112 ms MUSE SYSTEM Q-T Interval 364 ms MUSE SYSTEM QTC Calculated 471 ms MUSE SYSTEM (Bezet) Calculated P [place] 59 degrees MUSE SYSTEM Calculated R [place] -42 degrees MUSE SYSTEM Calculated T [place] 102 degrees MUSE SYSTEM INTERPRETATION Sinus tachycardia Occasional Premature ventricular com plexes MUSE SYSTEM Left axis deviation 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) Abnormal ECG When compared with ECG of 08-DEC-2021 16:40, Premature ventricular complexes are now Present Confirmed by MD Fernandez Danette ([id number]) on 12/10/2021 4:55:06 PM Specimen Anatomical Collection Method Collection Time Receive d Time (Source) Location / / Volume Laterality 12/09/2021 7:57 AM 2 4:55 EDT PM EDT Iker Cuevas MD ECG ORDERABLES Performing Organization Address City/[facility]/ZIP Code Phon e Number MUSE SYSTEM (ABNORMAL) POCT Glucose (12/09/2021 7:28 AM EDT) P athologist Signature POC Glucose 263 (H) 65 - 199 [facility] mg/dL [facility] Comment: Supplemental ranges: <140 mg/dL before meals <180 mg/dL all other times of the day Specimen Anatomical Collection Method Collection Time Receive d Time (Source) Location / / Volume Laterality Blood 12/09/2021 7:28 AM 2 7:28 EDT AM EDT Iker Cuevas MD POINT OF CARE TEST ORDERABLE S Performing Organization Address City/State/ZIP Code Phon e Number [place] [id number] (ABNORMAL) Hemoglobin A1c (12/09/2021 [...] [id number] Est Avg Gluc See note mg/dL [facility] Comment: Estimated Average Glucose not appropriat [...] into estimated average glucose values. ??Diabetes Care 2008:31(8):6840-7933. Specimen Anatomical Collection Method Collection Time Receive d Time (Source) Location / / Volume Laterality Blood Venous Draw / 12/09/2021 6:18 AM 12/10/19 22 Unknown EDT 12:24 PM EDT Resulting Agency Comment Spec In Lab Migdalia BROWN CHEMISTRY ORDERABLES Performing Organization Address City/[facility] [place] [address] (ABNORMAL) Prothrombin Time (12/09/2021 6:18 AM EDT) athologist Signature PT 26.6 (H) 9.4 - 12.5 [facility] LABORATORY INR 2.3 [facility] Comment: An [...] Migdalia BROWN HEMATOLOGY ORDERABLES Performing Organization Address City/[facility] Phon e Number [place] [id number] Heparin (unfractionated) Level (12/09/2021 [...] Organization Address City/State/[place] [address] (ABNORMAL) Differential, Automated (12/09/2021 6:18 AM EDT) [facility] Method Time Signature Neutrophils % 91.5 % [facility] Neutr Abs (ANC) 15.78 (H) 1.70 - [facility] 6.[address] [facility] x10(3)/[facility] L LABORATORY Lymphocytes % 2.9 % [facility] Lymphocytes Abs 0.5 (L) 0.9 - 3.2 [facility] x10(3)/[facility] LABORATORY Monocytes % 4.9 % [facility] Monocyte Abs 0.8 0.3 - 0.9 [facility] x10(3)/[facility] LABORATORY Eosinophils % 0.0 % [facility] Eosinophils Abs 0.0 0.0 - 0.4 [facility] x10(3)/[facility] LABORATORY Basophils % 0.2 % [facility] Basophils Abs 0.0 0.0 - 0.1 [facility] x10(3)/[facility] LABORATORY Immature Gran % 0.50 % [...] Gran Abs 0.09 (H) 0.00 - 0.04 x10(3)/[facility] LABORATORY Specimen Anatomical Collection Method Collection Time Receive d Time (Source) Location / / Volume Laterality Blood 12/09/2021 6:18 AM 6:33 EDT AM EDT Resulting Agency Comment Spec In Lab Morgan BROWN HEMATOLOGY ORDERABLES Performing Organization Address City/State/[place] [address] (ABNORMAL) Hemogram (12/09/2021 6:18 AM EDT) Analysis Performed At Patho logist Time Signature WBC 17.2 (H) 4.0 - 9.5 [facility] x10(3)/[facility] LABORATORY RBC 4.32 (L) 4.58 - [facility] 5.[address] [facility] x10(6)/[facility] LABORATORY Hemoglobin 12.6 (L) 13.7 - [facility] 16.5 g/dL [facility] Hematocrit 38.9 (L) 40.5 - [facility] 48.5 % [facility] MCV 90.0 82.9 - [facility] 93.1 [facility] LABORATORY MCH 29.2 27.5 - [facility] 32.1 pg [facility] MCHC 32.4 32.0 - [facility] 35.7 g/dL [facility] Platelets 193 145 - 357 [facility] x10(3)/[facility] LABORATORY RDWSD 50.4 (H) 36.0 - [facility] 45.0 [facility] LABORATORY RDWCV 15.2 (H) 11.4 - [facility] 13.8 % [facility] MPV 9.5 7.6 - 12.9 [facility] LABORATORY nRBC % Auto 0.0 % [facility] nRBC Abs Auto 0.000 0.000 - [facility] 0.[address] [facility] x10(3)/[facility] LABORATORY Specimen Anatomical Collection Method Collection Time Receive d Time (Source) Location / / Volume Laterality Blood 12/09/2021 6:18 AM 2 6:33 EDT AM EDT Resulting Agency Comment Spec In Lab Morgan BROWN HEMATOLOGY ORDERABLES Performing Organization Address City/State/[place] [address] Lipid Panel (Reflex Direct LDL) (12/09/2021 6:18 AM EDT) athologist Signature Chol, Total 105 mg/dL [facility] Comment: Lower Risk: <200 mg/dL Average Risk: 200-239 mg/dL Higher Risk: >vk=220 mg/dL Triglycerides 133 mg/dL [facility] Comment: Average Risk/Lower Risk: <150 mg/dL Borderline High Risk: 150-199 mg/dL High Risk: 200-499 mg/dL Very High Risk: >ku=674 mg/dL HDL 42 mg/dL [facility] Comment: Males: ?? Higher Risk: <40 mg/dL Females: ?? Higher Risk: <50 mg/dL LDL Cholesterol 36 mg/dL [facility] Comment: Lowest Risk: <100 mg/dL Lower Risk: 100-129 mg/dL Borderline High Risk: 130-159 mg/dL High Risk: 160-189 mg/dL Very High Risk: >zj=688 mg/dL Chol/HDL Ratio 2.5 ratio [facility] Lipid Interpretation See Note [facility] Comment: Lipid management should be guided by a p atient? s ASCVD risk, goals and preferences. ACC/AHA Guidelines recommend high intens ity statin if clinical ASCVD or LDL greater than or equal to 190 mg/dL. http://tinyurl.com/TVX-XJQ-Hynukwauc Adults aged 40-75 with LDL 70-189 mg/dL should have their 10 year ASCVD risk estimated with the ACC/AHA ASCVD risk es timator http://tools.acc.org/AETGA-Mhhb-Yiyxexwn r/ Statin should be discussed if risk [...] Cuevas MD CHEMISTRY ORDERABLES Performing Organization Address [facility]/ZIP [facility] Phon e Number [address] TSH (12/09/2021 6:18 AM EDT) P athologist Signature TSH 1.60 0.27 - 4.20 [facility] mcIU/mL [facility] Comment: Reference Interval (mcIU/mL): Females: ??First Trimester: 0.23-3.88 ??Second Trimester: 0.22-3.90 ??Third Trimester: 0.44-4.66 Specimen Anatomical Collection Method Collection Time Receive d Time (Source) Location / / Volume Laterality Blood 12/09/2021 6:18 AM 2 6:33 EDT AM EDT Resulting Agency Comment Spec In Lab Iker Cuevas MD CHEMISTRY ORDERABLES Performing Organization Address City/[facility]/ZIP [facility] [place] [address] Hepatic Function Panel (12/09/2021 6:18 AM EDT) P athologist Signature Total Protein 7.3 6.1 - 8.0 [facility] g/dL [facility] Albumin 4.2 3.2 - 5.2 [facility] g/dL [facility] AST 25 0 - 39 [facility] unit/L [facility] ALT 15 0 - 55 [facility] unit/L [facility] Alk Phos 75 40 - 130 [facility] unit/L [facility] Total 1.1 0.2 - 1.3 [facility] Bilirubin mg/dL [facility] Bili, Direct 0.2 0.0 - 0.3 [facility] mg/dL [facility] Specimen Anatomical Collection Method Collection Time Receive d Time (Source) Location / / Volume Laterality Blood 12/09/2021 6:18 AM 2 6:33 EDT AM EDT Resulting Agency Comment Spec In Lab Iker Cuevas MD CHEMISTRY ORDERABLES Performing Organization Address City/State/[place] [address] (ABNORMAL) BMP w/fasting Glucose (12/09/2021 6:18 AM EDT) athologist Signature Glucose 235 (H) 65 - 99 [facility] Fasting mg/dL [facility] Comment: ?Fasting* Glucose Interpretive C riteria [...] of Diabetes Mellitus, Position Statement from the [place] [employer]. ??Diabete s Care, Volume 33, Supplement 1, Jul 2009 BUN 49 (H) 10 - 20 mg/dL [facility] Creatinine 1.33 0.80 - 1.50 mg/dL [facility] Sodium 139 135 - 145 mmol/L [facility] [...] Estimated GFR 52 (L) >=60 mL/min/1.73 m?? [facility] [...] Cuevas MD CHEMISTRY ORDERABLES Performing Organization Address City/[facility]/ZIP Code Phon e Number [address] Magnesium (12/09/2021 6:18 AM EDT) P athologist Signature Magnesium 0.81 0.69 - 1.07 [facility] mmol/L [facility] Specimen Anatomical Collection Method Collection Time Receive d Time (Source) Location / / Volume Laterality Blood 12/09/2021 6:18 AM 2 6:33 EDT AM EDT Resulting Agency Comment Spec In Lab Iker Cuevas MD CHEMISTRY ORDERABLES Performing Organization Address City/[facility]/[place] [address] (ABNORMAL) Troponin (12/09/2021 6:18 AM EDT) athologist Signature Troponin-T 1.13 (H) 0.00 - [facility] 0.00 ng/mL [facility] Comment: The 99th percentile for Troponin T is le ss than 0.01 ng/mL, any detectable cTnT concentration using this assay should be considered elevated. According to the third universal definit ion of myocardial infarction the following criteria with a clinical prese ntation consistent with acute myocardial ischemia meets the diagnosis for a myocardial infarction ([place]). Detection of a rise and/or fall of [...] additional sample may be indicated. Reference: Third [employer] Definition of Myocardial Infarction. Journal of the [place] [employer] 2012;60:1581-98 Specimen Anatomical Collection Method Collection Time Receive d Time (Source) Location / / Volume Laterality Blood 12/09/2021 6:18 AM 2 6:33 EDT AM EDT Resulting Agency Comment Spec In Lab Iker Cuevas MD CHEMISTRY ORDERABLES Performing Organization Address City/State/ZIP Code Phon e Number [facility] [place] [phone] [facility] LABORATORY Drive XR Chest One View (12/09/2021 [...] who have questions please contact the health health care coordinator that requested your imaging first. ? Electronically signed by: Yoselin White, [facility] ([phone]), at 12/09/2021 5:35 AM Narrative 12/09/2021 5:35 [...] ho have questions please contact the health health care coordinator that requested your imaging first. Amber Sanches MD IMG DX ORDERABLES (ABNORMAL) BLOOD GAS 2 ARTERIAL (12/09/2021 5:14 AM EDT) Analysis Performed At Patho logist Time Signature pH Art 7.43 7.35 - [facility] 7.45 [facility] pCO2 Art 36 35 - 45 [facility] mmHg [facility] pO2 Art 67 (L) 85 - 104 [facility] LABORATORY HCO3 Art 23.4 20.0 - [facility] 26.[address] [facility] mmol/L [facility] BE Art -0.9 -3.0 - 3.0 [facility] mmol/L [facility] Hgb Blood Gas 13.2 (L) 13.7 - [facility] 16.5 g/dL [facility] O2HB Art 91.3 (L) 94.0 - [facility] 97.0 % [facility] COHB Art 0.4 % [facility] Comment: Nonsmokers: 0.5-1.5% COHB Smokers: Variable, but usually less than 10% Toxic: 20-30% COHB Lethal: Greater than 60% COHB METHB Art 0.4 <=1.5 % [facility] Na Whole Blood 138 135 - 145 mmol/L [facility] K Whole Blood 4.1 3.5 - 5.0 mmol/L [facility] Comment: Please note: Patients with WBC >100,000 may have falsely elevated Potassium levels. Contact the Clinical Chemistry L aboratory if there are any questions. ICa Whole Blood 1.09 (L) 1.15 - 1.33 mmol/L [facility] FIO2 Art 35 % [facility] Flow Art 8.0 LPM [facility] PF Ratio Art 191 [facility]ORY Specimen Anatomical Collection Method Collection Time Receive d Time (Source) Location / / Volume Laterality Blood 12/09/2021 5:14 AM 2 5:14 EDT AM EDT Iker Cuevas MD CHEMISTRY ORDERABLES Performing Organization Address City/[facility] [place] [address] POCT Glucose (12/09/2021 4:46 AM EDT) P athologist Signature POC Glucose 198 65 - [address] [address] mg/dL [facility] Comment: Supplemental ranges: <140 mg/dL before meals <180 mg/dL all other times of the day Specimen Anatomical Collection Method Collection Time Receive d Time (Source) Location / / Volume Laterality Blood 12/09/2021 4:46 AM 2 4:46 EDT AM EDT Iker Cuevas MD POINT OF CARE TEST ORDERABLE S Performing Organization Address City/[facility]/[place] [address] (ABNORMAL) POCT Glucose (12/09/2021 3:01 AM EDT) P athologist Signature POC Glucose 225 (H) 65 - [address] [facility] mg/dL [facility] Comment: Supplemental ranges: <140 mg/dL before meals <180 mg/dL all other times of the day Specimen Anatomical Collection Method Collection Time Receive d Time (Source) Location / / Volume Laterality Blood 12/09/2021 3:01 AM 2 3:01 EDT AM EDT Iker Cuevas MD POINT OF CARE TEST ORDERABLE S Performing Organization Address City/State/[place] [address] (ABNORMAL) POCT Glucose (12/08/2021 10:55 PM EDT) athologist Signature POC Glucose 327 (H) 65 - 199 [facility] mg/dL [facility] Comment: Supplemental ranges: <140 mg/dL before meals <180 mg/dL all other times of the day Specimen Anatomical Collection Method Collection Time Receive d Time (Source) Location / / Volume Laterality Blood 12/08/2021 10:55 12/08/2021 PM EDT 10:55 PM EDT Iker Cuevas MD POINT OF CARE TEST ORDERABLE S Performing Organization Address City/State/ZIP Code Phon e Number [address] Heparin (unfractionated) Level (12/08/2021 10:03 PM EDT) athologist [facility] Heparin UFH 0.18 IU/mL [facility] [...] Address City/State/[place] [address] (ABNORMAL) Troponin (12/08/2021 10:03 PM EDT) athologist Signature Troponin-T 0.92 (H) 0.00 - [facility] 0.00 ng/mL [facility] Comment: The 99th percentile for Troponin T is le ss than 0.01 ng/mL, any detectable cTnT concentration using this assay should be considered elevated. According to the third universal definit ion of myocardial infarction the following criteria with a clinical prese ntation consistent with acute myocardial ischemia meets the diagnosis for a myocardial infarction ([place]). Detection of a rise and/or fall of [...] additional sample may be indicated. Reference: Third [employer] Definition of Myocardial Infarction. Journal of the [place] [employer] 2012;60:1581-98 Specimen Anatomical Collection Method Collection Time Receive d Time (Source) Location / / Volume Laterality Blood 12/08/2021 10:03 12/08/2021 PM EDT 10:31 PM EDT Resulting Agency Comment Spec In Lab Iker Cuevas MD CHEMISTRY ORDERABLES Performing Organization Address City/State/[place] [address] (ABNORMAL) POCT Glucose (12/08/2021 8:22 PM EDT) athologist Signature POC Glucose 429 (H) 65 - 199 [facility] mg/dL [facility] Comment: Supplemental ranges: <140 mg/dL before meals <180 mg/dL all other times of the day Specimen Anatomical Collection Method Collection Time Receive d Time (Source) Location / / Volume Laterality Blood 12/08/2021 8:22 PM 2 8:22 EDT PM EDT Iker Cuevas MD POINT OF CARE TEST ORDERABLE S Performing Organization Address City/State/ZIP Code Phon e Number [address] (ABNORMAL) POCT Glucose (12/08/2021 7:06 PM EDT) athologist Signature POC Glucose 442 (H) 65 - [address] mg/dL [facility] Comment: Supplemental ranges: <140 mg/dL before meals <180 mg/dL all other times of the day Specimen Anatomical Collection Method Collection Time Receive d Time (Source) Location / / Volume Laterality Blood 12/08/2021 7:06 PM 2 7:06 EDT PM EDT Iker Cuevas MD POINT OF CARE TEST ORDERABLE S Performing Organization Address City/[facility]/[place] [address] Magnesium (12/08/2021 6:02 PM EDT) athologist Signature Magnesium 0.86 0.69 - 1.07 [facility] mmol/L [facility] Specimen Anatomical Collection Method Collection Time Receive d Time (Source) Location / / Volume Laterality Blood 12/08/2021 6:02 PM 2 6:36 EDT PM EDT Resulting Agency Comment Spec In Lab Iker Cuevas MD CHEMISTRY ORDERABLES Performing Organization Address City/State/[place] [address] (ABNORMAL) Basic Metabolic Panel (non-fasting) (12/08/2021 6:02 PM EDT) athologist Signature Glucose Lvl 392 (H) 65 - [address] [facility] mg/dL [facility] Comment: [...] mmol/L [facility]ORY CO2 20 (L) 22 - 31 mmol/L [facility] Anion Gap 16 (H) 5 - 15 mmol/L [facility]ORY Calcium 8.6 8.5 - 10.5 mg/dL [facility] LAB[facility] Estimated GFR 47 (L) >=60 [...] Organization Address City/State/[place] [address] (ABNORMAL) Differential, Automated (12/08/2021 6:02 PM EDT) [facility] gist Method Time Signature Neutrophils % 89.5 % [facility] LABORATORY Neutr Abs (ANC) 13.97 (H) 1.70 - [facility] 6.[address] [facility] x10(3)/[facility] L LABORATORY Lymphocytes % 3.7 % [facility]ORATORY Lymphocytes Abs 0.6 (L) 0.9 - 3.2 [facility] x10(3)/[facility] LABORATORY Monocytes % 6.1 % [facility] LABORATORY Monocyte Abs 1.0 (H) 0.3 - 0.9 [facility] x10(3)/[facility] LABORATORY Eosinophils % 0.0 % [facility]ORATORY Eosinophils Abs 0.0 0.0 - 0.4 [facility] x10(3)/[facility] LABORATORY Basophils % 0.2 % [facility]ORATORY Basophils Abs 0.0 0.0 - 0.1 [facility] x10(3)/[facility] LABORATORY Immature Gran % 0.50 % [...] Organization Address City/State/[place] [address] (ABNORMAL) Hemogram (12/08/2021 6:02 PM EDT) Analysis Performed At Patho logist Time Signature WBC 15.6 (H) 4.0 - 9.5 [facility] x10(3)/[facility] LABORATORY RBC 4.05 (L) 4.58 - [facility] 5.[address] [facility] x10(6)/[facility] LABORATORY Hemoglobin 11.8 (L) 13.7 - [facility] 16.5 g/dL [facility] LABORATORY Hematocrit 35.8 (L) 40.5 - [facility] 48.5 % [facility] LABORATORY MCV 88.4 82.9 - [facility] 93.1 [facility] LABORATORY MCH 29.1 27.5 - BARBARA ZHAORYAN 32.1 pg [facility] LABORATORY MCHC 33.0 32.0 - [facility] 35.7 g/dL [facility] LABORATORY Platelets 178 145 - 357 [facility] x10(3)/[facility] LABORATORY RDWSD 49.3 (H) 36.0 - [facility] 45.0 [facility] LABORATORY RDWCV 15.1 (H) 11.4 - [facility] 13.8 % [facility] LABORATORY MPV 10.4 7.6 - 12.9 [facility] LABORATORY nRBC % Auto 0.0 % [facility] LABORATORY nRBC Abs Auto 0.000 0.000 - [facility] 0.[address] [facility] x10(3)/[facility] LABORATORY Specimen Anatomical Collection Method Collection Time Receive d Time (Source) Location / / Volume Laterality Blood 12/08/2021 6:02 PM 6:36 EDT PM EDT Resulting Agency Comment Spec In Lab Morgan BROWN HEMATOLOGY ORDERABLES Performing Organization Address City/State/[place] [address] (ABNORMAL) Troponin (12/08/2021 6:02 PM EDT) athologist Signature Troponin-T 0.89 (H) 0.00 - BARBARA RYAN 0.00 ng/mL [facility] LABORATORY Comment: The 99th percentile for Troponin T is le ss than 0.01 ng/mL, any detectable cTnT concentration using this assay should be considered elevated. According to the third universal definit ion of myocardial infarction the following criteria with a clinical prese ntation consistent with acute myocardial ischemia meets the diagnosis for a myocardial infarction ([place]). Detection of a rise and/or fall of [...] additional sample may be indicated. Reference: Third Thousandsticks Definition of Myocardial Infarction. Journal of the [place] [employer] 2012;60:1581-98 Specimen Anatomical Collection Method Collection Time Receive d Time (Source) Location / / Volume Laterality Blood 12/08/2021 6:02 PM 6:36 EDT PM EDT Resulting Agency Comment Spec In Lab Iker Cuevas MD CHEMISTRY ORDERABLES Performing Organization Address City/State/ZIP Code Phon e Number [place] [id number] COVID-19 PCR (12/08/2021 5:00 PM EDT) [facility] Method Time Signature SARS-CoV-2 Not Detected Not Detected [facility] RNA PCR [facility] LABORATORY [...] using the Simplexa COVID-19 Direct Assay by [employer] as authorized by the FDA issued Emergency [...] Department of Pathology and Laboratory Medicine at [facility], certified under the Clinical [...] fact sheets at the following FDA website: https://www.fda.gov/medical-devices/jmxhetawvxm-drpcuaz-1821-vqeaa-43-tslqunwcg- bpe-aexpkohrdydvft-byhvhee-devices/ucscz-vvzyyngkxls-pdpl SARS-CoV-2 Source CHEMISTRY FACULTY MEMBER Swab [facility] LABORATORY Specimen (Source) Anatomical Collection Method Collection Time Re ceived Time Location / / Volume Laterality Nasopharyngeal Swab 12/08/2021 5:00 12/08 PM EDT 6:03 PM EDT Comment: Symptoms->Surveillance Resulting Agency Comment Spec In Lab Iker Cuevas MD MICROBIOLOGY - GENERAL ORDER [place] Performing Organization Address City/State/[place] [address] EKG 12 Lead (12/08/2021 4:40 PM EDT) Component Value Ref Range Test Analysis Performed Pathologis t Method Time At Signature Ventricular rate 78 BPM MUSE SYSTEM Atrial Rate 78 BPM MUSE SYSTEM P-R Interval 152 ms MUSE SYSTEM QRS Duration 96 ms MUSE SYSTEM Q-T Interval 396 ms MUSE SYSTEM QTC Calculated 451 ms MUSE SYSTEM (Bezet) Calculated P [place] 44 degrees MUSE SYSTEM Calculated R [place] -31 degrees MUSE SYSTEM Calculated T [place] 124 degrees MUSE SYSTEM INTERPRETATION Normal sinus [...] POC Glucose 400 (H) 65 - 199 [facility] mg/dL [facility] LABORATORY Comment: Supplemental ranges: <140 mg/dL before meals <180 mg/dL all other times of the day Specimen Anatomical Collection Method Collection Time Receive d Time (Source) Location / / Volume Laterality Blood 12/08/2021 4:34 PM 2 4:34 EDT PM EDT Iker Cuevas MD POINT OF CARE TEST ORDERABLE S Performing Organization Address City/State/[place] [address] documented in this encounter [...] NIGHTLY, First dose (after last modification) on Ivis 12/11/21 at 2100, Until Discontinued, Routine insulin lispro [...] Given 11/23 10:30 AM EDT 300 mcg (ELECTRIC SYSTEM OPERATOR) ONCE PRN, Starting on Wed12/10/21 at [...] 35 Units (CANCELED) 2032 (Given - Provider: Barabra Boogie RN) 35 Units, Subcutaneous, NIGHTLY, First [...] Garcia RN) 0001 (Given - Provider: Derrick Galeas RN)0631 [...] (Tylenol) tablet 650 mg 0805 ([facility] Hold - Provider: Admin Adt - Reason: Transfer to a Procedural area)1230 ([facility] Unhold - Provider: Admin Adt) [...] Transfer to a Procedural area)1230 ([facility] Unhold - Provider: Admin Adt) [...] (Intra-Procedure), Routine niCARdipine (Cardene) (100 mcg/mL) dilution (ELECTRIC SYSTEM OPERATOR) (CANCELED) 1030 (Given - Provider: Vitaliy [...] episode. & nbsp; For persistent hypoglycemia, con fabric separator operator longer-acting treatment for the duration of [...]
Routine documented in this encounter Care Teams Shaper Operator Relationship Specialty Start Date End Date Lovely Vicente MD PCP - General 04/16/[address] [place] [address] documented as of this encounter
--- OUTSIDE RECORDS SUMMARY | 2022-03-27 09:19 | XMS_ITS | Encounter Summary ---
:1945 [place] [address] Care Team Providers Name Role Phone Lovely Vicente MD Primary Care Provider Reason for Visit Reason Comments Skin Cancer Examination Encounter Details Date Type Department Care Team Description 03/20/2021 Office Visit Dermatology at [facility] Brennen Rene MD [facility] of [facility] of dysplastic nevus; [address] Multiple benign nevi; [place] [address] [facility] (seborrheic keratosis); [phone] [address]-DERMATOLOGY [place] (actinic keratosis) [place], [place] [address] Social History Tobacco Use Types [...] no SOCIAL HISTORY 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 Reviewed and signed by: LAURA RENE MD Dermatology [facility] documented in this encounter Plan of Treatment Upcoming Encounters Date Type Specialty Care Team Description 05/28/2022 Appointment Cardiology TrudiZulma Knowles MD [facility] [place], [place] [address] (Wo rk) 05/28/2022 Laboratory Appointment Lab 05/28/2022 Office Visit Cardiology Zulma Dolan MD [facility] [place] [address] Liz Poole PA [facility] [place] [address] 06/10/2022 Office Visit Dermatology Laura Rene MD [facility] [address] [place], [place] [address] (Wo rk) documented as [...] keratosis documented in this encounter Care Teams Forensic Science Examiner Relationship Specialty Start Date End Date Lovely Vicente MD PCP - General 04/16/[address] [place] [address] documented as of this encounter
--- OUTSIDE RECORDS SUMMARY | 2022-03-27 09:19 | XMS_ITS | Encounter Summary ---
:1945 Author Organization [facility] [place] [address] Care Team Providers Name Role Phone Lovely Vicente MD Primary Care Provider Encounter Details Date Type Department Care Team Description 03/20/2021 Ancillary Procedure Radiology Library [place] [address] [place] [address] [phone] Social History Tobacco Use Types Packs/Day Years [...] MD [facility] [place], [place] [address] (Wo rk) 05/28/2022 Laboratory Appointment Lab 05/28/2022 Office Visit Cardiology Zulma Dolan MD [facility] [place] [address] Liz Poole PA [facility] [place] [address] 06/10/2022 Office Visit Dermatology Laura Scherer MD [facility] ER [address] [place], [place] [address] (Wo rk) documented as of this encounter Procedures Procedure Name Priority Date/Time Associated Diagnosis Comme nts FILM LIBRARY Routine 03/20/2021 5:24 PM Results for this STORAGE ONLY CT EDT procedure ar e in HEAD [facility] SPINE the results section. documented in this encounter Results Film Library- Storage Only CT Head [facility] Sp[facility] (03/20/2021 5:24 PM EDT) Specimen (Source) Anatomical Location Collection Method / Collectio n Time Received Time / Laterality Volume Narrative RAD - 03/20/2021 5:24 PM EDT This exam is auto-finalizing. It's purpo se is for storage only. Hugo Gaston MD IMG FILM LIBRARY ORDERABLES Performing Organization Address City/State/ZIP Code Phon e Number [place], [place] documented in this encounter Visit Diagnoses Not on filedocumented in this encounter Care Teams Sorority Mother Relationship Specialty Start Date End Date Lovely Vicente MD PCP - General 04/16/[address] [place] [address] documented as of this encounter
--- OUTSIDE RECORDS SUMMARY | 2022-03-27 09:20 | XMS_ITS | Encounter Summary ---
:1945 Author Organization [facility] [place] [address] Care Team Providers Name Role Phone Lovely Vicente MD Primary Care Provider Encounter Details Date Type Department Care Team Description 09/07/2017 Office Visit Endocrinology at [facility] Maria Ines St[facility] [place] [address] CENTER [phone] ENDOCRINOLOGY DEPT [place], [place] [address] Social History Tobacco Use Types [...] Description 05/28/2022 Appointment Cardiology Zulma Dolan MD [facility] er Dr [place], [place] [address] (Wo rk) 05/28/2022 Laboratory Appointment Lab 05/28/2022 Office Visit Cardiology Zulma Dolan MD [facility] [place] [address] Liz Poole PA [facility] [place] [address] 06/10/2022 Office Visit Dermatology Laura Scherer MD [facility] ER DR [address] [place], [place] [address] (Wo rk) documented as of this encounter Visit Diagnoses Diagnosis Hx of papillary thyroid carcinoma Personal history of malignant neoplasm o f thyroid documented in this encounter Care Teams Piano Refinisher Relationship Specialty Start Date End Date Lovely Vicente MD PCP - General 04/16/15 [facility] [address] [place] [address] documented as of this encounter
--- OUTSIDE RECORDS SUMMARY | 2022-03-27 09:20 | XMS_ITS | Encounter Summary ---
:1945 Author Organization [facility] [place] [address] Care Team Providers Name Role Phone Lovely Vicente MD Primary Care Provider Encounter Details Date Type Department Care Team Description 08/26/2018 Transcribe Orders Laboratory Lovely Vicente, Deferred diagnosis [facility] on axis I [address] [address] [place], [place] [phone] [address] Social History Tobacco Use Types Packs/Day Years [...] [facility] [address] [place], [place] [address] (Wo rk) 05/28/2022 Laboratory Appointment Lab 05/28/2022 Office Visit Cardiology Zulma Dolan MD [facility] [place] [address] Liz Poole PA [facility] [place] [address] 06/10/2022 Office Visit Dermatology Laura Scherer MD [facility] DR [address] [place], [place] [address] (Wo rk) documented as of this encounter Visit Diagnoses Diagnosis Deferred diagnosis on axis I Other unknown and unspecified cause of m orbidity or mortality documented in this encounter Care Teams Management Tech Relationship Specialty Start Date End Date Lovely Vicente MD PCP - General 04/16/15 [facility] [address] [place] [address] documented as of this encounter
--- OUTSIDE RECORDS SUMMARY | 2022-03-27 09:20 | XMS_ITS | Encounter Summary ---
:1945 Author Organization [facility] [place] [address] Care Team Providers Name Role Phone Lovely Vicente MD Primary Care Provider Reason for Visit Reason Comments Skin Check Encounter Details Date Type Department Care Team Description 07/06/2018 Office Visit Dermatology at [facility], Rigoberto Yarbrough (actinic keratosis); MD SHAY Quick III (seborrheic keratosis); [address] [facility] History of melanoma; [place] [address] Skin exam for malignant neoplasm [phone] [facility]-DERMATOLGY [place], [place] [address] Social History Tobacco Use Types [...] leg - he had vascular surgery in [facility] while he lost several toes, they [...] encounter. Rigoberto Garcia MD Section of Dermatology [facility] documented in this encounter Plan of Treatment Upcoming Encounters Date Type Specialty Care Team Description 05/28/2022 Appointment Cardiology Zulma Dolan MD [facility] [address] [place], [place] [address] (Wo rk) 05/28/2022 Laboratory Appointment Lab 05/28/2022 Office Visit Cardiology Zulma Dolan MD [facility] [place] [address] Liz Poole PA [facility] [place] [address] 06/10/2022 Office Visit Dermatology Laura Scherer MD [facility] DR [address] [place], [place] [address] (Wo rk) documented as of this encounter Visit Diagnoses Diagnosis [place] (actinic keratosis) Actinic keratosis [place] (seborrheic keratosis) Other seborrheic keratosis History of melanoma Personal history of malignant melanoma o f skin Skin exam for malignant neoplasm Screening for malignant neoplasm of the skin documented in this encounter Care Teams Financial Representative Relationship Specialty Start Date End Date Lovely Vicente MD PCP - General 04/16/[address] [place] [address] documented as of this encounter
--- OUTSIDE RECORDS SUMMARY | 2022-03-27 09:20 | XMS_ITS | Encounter Summary ---
:1945 Author Organization [facility] [place] [address] Care Team Providers Name Role Phone Lovely Vicente MD Primary Care Provider Reason for Visit Reason Onset Date Comments Follow-up 07/13/2018 amiodarone discontin ued Encounter Details Date Type Department Care Team Description 07/13/2018 Telephone Cardiology at [facility] Martha Comer, Follow-up (amiodarone [facility] RN discontin ued) [place] [address] Social History Tobacco Use Types Packs/Day [...] RN - 07/13/2018 8:57 AM EST Per INTERNET MARKETING EXECUTIVE Hans call placed to the home number for the pt. confirmed that the pt is still taking the amiodarone. Pt is to stop the amiodarone. Pt taking it for post op a-fib, therapy was supposed to be for 30 days. Message given to his . She will give him the message and will have him call with any questions. Call placed to the [facility] pharmacy in [place] to discontinue it there as well. Med list updated. documented in this encounter Plan of Treatment Upcoming Encounters Date Type Specialty Care Team Description 05/28/2022 Appointment Cardiology Zulma Dolan MD [facility] [place], [place] [address] (Wo rk) 05/28/2022 Laboratory Appointment Lab 05/28/2022 Office Visit Cardiology Zulma Dolan MD [facility] [place] [address] Liz Poole PA [facility] [place] [address] 06/10/2022 Office Visit Dermatology Laura Scherer MD [facility] DR [address] [place], [place] [address] (Wo rk) documented as of this encounter Visit Diagnoses Not on filedocumented in this encounter Care Teams Statistical Reporting Analyst Relationship Specialty Start Date End Date Lovely Vicente MD PCP - General 04/16/[address] [place] [address] documented as of this encounter
--- OUTSIDE RECORDS SUMMARY | 2022-03-27 09:20 | XMS_ITS | Encounter Summary ---
:1945 Author Organization [facility] [place] [address] Care Team Providers Name Role Phone Lovely Vicente MD Primary Care Provider Encounter Details Date Type Department Care Team Description 07/28/2019 Office Visit Cardiology at [facility] Danette Maxwell Chronic systolic heart failu re; [facility] A, STACIE ASHD (arteriosclerotic heart disease); Drive [facility] S/P CABG x 3; [place], [place] MARIA VICTORIA (obstructive sleep apnea) on CPAP; [phone] CARDIOLOGY Mixed hyperlipidemia [phone] [place], [place] [address] Social History Tobacco Use Types [...] this encounter Progress Notes Danette Maxwell, SENIOR FRONT END DEVELOPER - 07/28/2019 9:40 AM EST Images [...] regurgitation present. 07/07/2019 - 07/21/2019 Zio Patch Forming Operator The patient had a minimum heart [...] K+ 4.5 today 6. Post-op atrial fibrillation [id number] 7 (CHF, HTN, DM, vascular disease, thromboembolism) [...] advised: Refer to EP (Dr. Mcelroy in [place]) 5. Heart Failure Clinic follow up scheduled for: 3 months with proBNP and BMP Danette Maxwell APRN 07/28/2019 documented in this encounter Plan of Treatment Upcoming Encounters Date Type Specialty Care Team Description 05/28/2022 Appointment Cardiology Zulma Dolan MD [facility] [place], [place] [address] (Wo rk) 05/28/2022 Laboratory Appointment Lab 05/28/2022 Office Visit Cardiology Zulma Dolan MD [facility] [address] Liz Poole PA [facility] [place] [address] 06/10/2022 Office Visit Dermatology Laura Scherer MD [facility] [address] [place], [place] [address] (Wo rk) documented as of this encounter Results (ABNORMAL) Basic Metabolic Panel (non-fasting) (07/28/2019 8:36 AM EST) P athologist Signature Glucose Lvl 153 65 - 199 [facility] mg/dL [facility] LABORATORY [...] LABORATORY Estimated GFR 70 >=60 mL/min/1.73 m?? [facility] LABORATORY Comment: The eGFR was calculated using the CKD-EP I equation. As with all creatinine based estimates of kidney function, eGFR values calculated with the CKD-EPI equation are not accurate in patients wi th acute kidney failure, extremes of body mass or the acutely ill. [email or web address] eGFR 81 >=60 mL/min/1.73 m?? [facility] LABORATORY Comment: The eGFR was calculated using the CKD-EP I equation. As with all creatinine based estimates of kidney function, eGFR values calculated with the CKD-EPI equation are not accurate in patients wi th acute kidney failure, extremes of body mass or the acutely ill. [email or web address] CITYnkf Specimen Anatomical Collection Method Collection Time Receive d Time (Source) Location / / Volume Laterality Blood specimen 07/28/2019 8:36 AM 020 8:46 (specimen) EST AM EST Resulting Agency Comment Spec In Lab Danette Maxwell APRN CHEMISTRY ORDERABLES Performing Organization Address City/State/ZIP Code Phon e Number [address] (ABNORMAL) pro-Brain Natriuretic Peptide (07/28/2019 8:36 AM EST) athologist Signature ProBNP 647 (H) <=125 pg/mL [facility] LABORATORY Specimen Anatomical Collection Method Collection Time Receive d Time (Source) Location / / Volume Laterality Blood specimen 07/28/2019 8:36 AM 020 8:46 (specimen) EST AM EST Resulting Agency Comment Spec In Lab Danette Maxwell APRN CHEMISTRY ORDERABLES Performing Organization Address City/[facility]/[place]IP [place] [address] documented in this encounter Visit Diagnoses Diagnosis Chronic systolic heart failure ASHD (arteriosclerotic heart disease) Coronary atherosclerosis of unspecified type of vessel, pra[place] or graft S/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
--- OUTSIDE RECORDS SUMMARY | 2022-03-27 09:20 | XMS_ITS | Encounter Summary ---
:1945 Author Organization [facility] Address [place] [address] Care Team Providers Name Role Phone Lovely Vicente MD Primary Care Provider Reason for Referral Diagnostic Test (Routine) - Specialty Diagnoses / Procedures Referred By Contact Refer red To Contact Cardiology Diagnoses Chronic systolic heart failure Danette Maxwell APRN [facility] Non-Inv Card Lab Procedures Echocardiogram Transthoracic(Leb) [facility] [place] [address] [place] [address] Referral ID Status Reason Start Date Expiration Visits Visits Date Requested Authorized [id number] Specialty 08/15/2018 08/15/2018 1 1 Service Requested Encounter Details Date Type Department Care Team Description 04/18/2018 Office Visit Cardiology at [facility] Danette Maxwell Chronic systolic heart failu re; [facility] STACIE Gomes On amiodarone therapy; [facility] Ischemic cardiomyopathy; [place], [place] DR ONOFRE (arteriosclerotic cardiovascular d isease) [id number] CARDIOLOGY [phone] [place], [place] [address] Social History Tobacco Use Types Packs/Day Years [...] in this encounter Progress Notes Danette Maxwell, PILOT PLANT SUPERVISOR - 04/18/2018 10:40 AM EDT ID and [...] popliteal-pedal bypass at [facility] ? Plan: 1. A review [...] Description 05/28/2022 Appointment Cardiology Zulma Dolan MD [facility] [address] [place], [place] [address] (Wo rk) 05/28/2022 Laboratory Appointment Lab 05/28/2022 Office Visit Cardiology [place]ul[place] [address] Liz Poole PA [facility] [place] [address] 06/10/2022 Office Visit Dermatology Laura Scherer MD [facility] [address] [place], [place] [address] (Wo rk) documented as of this encounter Results ECHOCARDIOGRAM COMPLETE W CONTRAST (08/15/2018 7:55 AM EST) P athologist Signature EF 35 HEARTLAB SYSTEM Anatomical Region Laterality Modality Other Specimen (Source) Anatomical Location Collection Method / Collectio n Time Received Time / Laterality Volume 08/15/2018 Narrative 08/15/2018 8:18 AM EST Procedure: ?Transthoracic Echocardiogram Patient: ?NATALYA Mccollum ? (Age): 1945(73y) Med Rec#: ? [id number] ?Sex: ?M ? Site Loc: ? [facility] ?Ht / Wt: ??172(cm)/81(kg) Pt. Loc: ?Echo Lab ?BSA: ?1.94 Study Date: ?? 08/15/2018 ?Pt. Type: Outpatient Tape: ? Referring: MARY ELLEN Reading: Scott Ortega ([id number]) Gym Teacher: Laura Sargent Diagnosis: *Chronic systolic (congestive) heart fa perry (I50.22) BP: ? 157/85 SUMMARY: 1. The [...] enhance endocardial definition. Excess contrast was discarde dMadiha Chambers 2D ?Value ?Units (Range) ? IVSd [...] E-wave Vmax ?1.2 ?m/sec ? MV deceleration [id number] ? msec ? MV A-wave Vmax ?0.7 [...] ? Mid-Inferior ?Hypokinetic ? Mid-Inferoseptal ?Hypokinetic ? [place]-Septal ? Akinetic ? [place]-Anterior ? Hypokinetic ? [place]-Lateral ?Akinetic ? [place]-Inferior ? Hypokinetic ? [place]-Tip ?Akinetic ? This report has been electronically sign ed by: _ Scott Ortega M.D. ? 08/15/2018 08:17:26 Images reviewed and interpretation verif ied [facility] Cardiac Ultrasound Laboratory Procedure Note Scott Ortega MD - 08/15/2018Format ting of this note might be different from the original. Procedure: Transthoracic Echocardiogram Patient: NATALYA MCBRIDE(Age): [birth year]73y) Med Rec#: [id number] Sex: M Site Loc: [facility] Ht / Wt: 172(cm)/81(kg) Pt. Loc: Echo Lab BSA: 1.94 Study Date: 08/15/2018 Pt. Type: Outpati ent Tape: Referring: MARY ELLEN Reading: Scott Ortega ([id number]) Gym Teacher: Laura Sargent Diagnosis: *Chronic systolic (congestive) heart [...] MV E-wave Vmax 1.2 m/sec MV deceleration [id number] msec MV A-wave Vmax 0.7 m/sec MV [...] Akinetic Mid-Posterolateral Akinetic Mid-Inferior Hypokinetic Mid-Inferoseptal Hypokinetic [place]-Septal Akinetic [place]-Anterior Hypokinetic [place]-Lateral Akinetic [place]-Inferior Hypokinetic [place]-Tip Akinetic This report has been electronically sign ed by: _ Scott Ortega M.D. 08/15/2018 08:17: 26 Images reviewed and interpretation verif ied [facility] Cardiac Ultrasound Laboratory Danette Maxwell APRN ECHO ORDERABLES (ABNORMAL) Basic Metabolic Panel (non-fasting) (04/18/2018 9:19 AM EDT) P athologist Signature Glucose Lvl 167 65 - 199 [facility] mg/dL [facility] [...] mmol/L [facility] Anion Gap 23 (H) 5 - 15 mmol/L [facility] Calcium 9.3 8.5 - 10.5 mg/dL [facility] Estimated GFR 61 >=60 mL/min/1.73 m?? [facility] Comment: The eGFR was calculated using the CKD-EP I equation. As with all creatinine based estimates of kidney function, eGFR values calculated with the CKD-EPI equation are not accurate in patients wi th acute kidney failure, extremes of body mass or the acutely ill. http://[employer] BANDS/[facility]f eGFR 70 >=60 mL/min/1.73 m?? [facility] Comment: The eGFR was calculated using the CKD-EP I equation. As with all creatinine based estimates of kidney function, eGFR values calculated with the CKD-EPI equation are not accurate in patients wi th acute kidney failure, extremes of body mass or the acutely ill. http://[employer] BANDS/[facility]f Specimen Anatomical Collection Method Collection Time Receive d Time (Source) Location / / Volume Laterality Blood specimen 04/18/2018 9:19 AM 018 9:34 (specimen) EDT AM EDT Resulting Agency Comment Spec In Lab Danette Maxwell APRN CHEMISTRY ORDERABLES Performing Organization Address City/State/[place] [address] (ABNORMAL) pro-Brain Natriuretic Peptide (04/18/2018 9:19 AM EDT) P athologist Signature ProBNP 2,199 (H) <=125 [facility] pg[facility] Specimen Anatomical Collection Method Collection Time Receive d Time (Source) Location / / Volume Laterality Blood specimen 04/18/2018 9:19 AM 018 9:34 (specimen) EDT AM EDT Resulting Agency Comment Spec In Lab Danette Maxwell APRN CHEMISTRY ORDERABLES Performing Organization Address City/State/[place] [address] documented in this encounter Visit Diagnoses Diagnosis Chronic systolic heart failure On amiodarone therapy Ischemic cardiomyopathy Other specified forms of chronic ischemi c heart disease ASCVD (arteriosclerotic cardiovascular d isease) Unspecified cardiovascular disease Chronic systolic heart failure documented in this encounter Care Teams Telegraph Printer Mechanic Relationship Specialty Start Date End Date Lovely Vicente MD PCP - General 04/16/[address] [place] [address] documented as of this encounter
--- OUTSIDE RECORDS SUMMARY | 2022-03-27 09:20 | XMS_ITS | Encounter Summary ---
:1945 Author Organization [facility] [place] [address] Care Team Providers Name Role Phone Lovely Vicente MD Primary Care Provider Encounter Details Date Type Department Care Team Description 08/15/2018 Laboratory Lab 3L [place] Chronic systoli c heart failure; Appointment [facility] ASCVD (ar teriosclerotic cardiovascular disease) [place] [address] Social History Tobacco Use Types [...] Cardiology Zulma Dolan MD [facility] er [address] [place] [address] (Wo rk) 05/28/2022 Laboratory Appointment Lab 05/28/2022 Office Visit Cardiology Zulma Dolan MD [facility] [place] [address] Liz Poole PA [facility] [place] [address] 06/10/2022 Office Visit Dermatology Laura Scherer MD [facility] ER [address] [place], [place] [address] (Wo rk) documented as of [...] Signature Glucose Lvl 116 65 - 199 [facility] mg/dL [facility] [...] LABORATORY Estimated GFR 68 >=60 mL/min/1.73 m?? [facility] Comment: The eGFR was calculated using the CKD-EP I equation. As with all creatinine based estimates of kidney function, eGFR values calculated with the CKD-EPI equation are not accurate in patients wi th acute kidney failure, extremes of body mass or the acutely ill. http://SnapOne/[facility] CITY[facility]f eGFR 79 >=60 mL/min/1.73 m?? [facility] Comment: The eGFR was calculated using the CKD-EP I equation. As with all creatinine based estimates of kidney function, eGFR values calculated with the CKD-EPI equation are not accurate in patients wi th acute kidney failure, extremes of body mass or the acutely ill. http://Sn[employer]One/[facility] CITYnkf Specimen Anatomical Collection Method Collection Time Receive d Time (Source) Location / / Volume Laterality Blood specimen 08/15/2018 8:04 AM 019 8:20 (specimen) EST AM EST Resulting Agency Comment Spec In Lab Danette Maxwell APRN CHEMISTRY ORDERABLES Performing Organization Address City/State/[place] [address] Lipid Panel (08/15/2018 8:04 AM EST) P athologist Signature Chol, Total 75 mg/dL [facility] Comment: Lower Risk: <200 mg/dL Average Risk: 200-239 mg/dL Higher Risk: >dc=209 mg/dL Triglycerides 185 mg/dL [facility] Comment: Average Risk/Lower Risk: <150 mg/dL Borderline High Risk: 150-199 mg/dL High Risk: 200-499 mg/dL Very High Risk: >xl=042 mg/dL HDL 32 mg/dL [facility] Comment: Males: ?? Higher Risk: <40 mg/dL Females: ?? HIgher Risk: <50 mg/dL LDL Cholesterol 6 mg/dL [facility] Comment: Lowest Risk: <100 mg/dL Lower Risk: 100-129 mg/dL Borderline High Risk: 130-159 mg/dL High Risk: 160-189 mg/dL Very High Risk: >xy=768 mg/dL Chol/HDL Ratio 2.[address] [facility] Lipid Interpretation See Note [facility] Comment: Lipid management should be guided by a p atient? s ASCVD risk, goals and preferences. ACC/AHA Guidelines recommend high intens ity statin if clinical ASCVD or LDL greater than or equal to 190 mg/dL. http://[employer].com/PGJ-BDA-Dcmtfstvj Adults aged 40-75 with LDL 70-189 mg/dL should have their 10 year ASCVD risk estimated with the ACC/AHA ASCVD risk es timator http://tools.acc.org/ZZSNK-Ebdp-Xsfozqzi r/ Statin should be discussed if risk [...] Organization Address City/State/ZIP [place] [address] (ABNORMAL) pro-Brain Natriuretic Peptide (08/15/2018 8:04 AM EST) athologist Signature ProBNP 1,797 (H) <=125 [facility] pg/mL [facility] Specimen Anatomical Collection Method Collection Time Receive d Time (Source) Location / / Volume Laterality Blood specimen 08/15/2018 8:04 AM 019 8:20 (specimen) EST AM EST Resulting Agency Comment Spec In Lab Danette Maxwell APRN CHEMISTRY ORDERABLES Performing Organization Address City/State/ZIP [place] [address] documented in this encounter Visit Diagnoses Diagnosis Chronic systolic heart failure ASCVD (arteriosclerotic cardiovascular d isease) Unspecified cardiovascular disease documented in this encounter Care Teams Steel Unloader Relationship Specialty Start Date End Date Lovely Vicente MD PCP - General 04/16/[address] [place] [address] documented as of this encounter
--- OUTSIDE RECORDS SUMMARY | 2022-03-27 09:20 | XMS_ITS | Encounter Summary ---
:1945 Author Organization [facility] [place] [address] Care Team Providers Name Role Phone Lovely Vicente MD Primary Care Provider Reason for Referral Diagnostic Test (Routine) - Specialty Diagnoses / Procedures Referred By Contact Refer red To Contact Cardiology Diagnoses Chronic systolic heart failure Danette Maxwell APRN [facility] Non-Inv Card Lab Procedures Echocardiogram Transthoracic(Leb) [facility] [place] [phone] [place] [address] Referral ID Status Reason Start Date Expiration Visits Visits Date Requested Authorized [id number] Specialty 08/15/2018 08/15/2018 1 1 Service Requested Reason for Visit Diagnostic Test (Routine) - Specialty Diagnoses / Procedures Referred By Contact Nawaf owen To Contact Cardiology Diagnoses Chronic systolic heart failure Danette Maxwell APRN [facility] Non-Inv Card Lab Procedures Echocardiogram Transthoracic(Leb) [facility] [place] [place] [address] [place] [address] Referral ID Status Reason Start Date Expiration Visits Visits Date Requested Authorized [id number] Specialty 08/15/2018 08/15/2018 1 1 Service Requested Encounter Details Date Type Department Care Team Description 08/15/2018 Hospital Encounter Non-Invasive Danette Maxwell Chron ic systolic Cardiology Lab Barbara Gomes APRN heart failure [facility] [place] [address] [place], [place] [phone] (Work) [phone] Social History Tobacco Use Types Packs/Day Years [...] mg by mouth 0 Capsule daily. ACCU-CHEK TREA PLUS 2-3 times daily 100 each 1 [...] Appointment Cardiology Zulma Dolan MD [facility] [place], [place] [address] (Wo rk) 05/28/2022 Laboratory Appointment Lab 05/28/2022 Office Visit Cardiology Zulma Dolan MD [facility] [place] [address] Liz Poole PA [facility] [place] [address] 06/10/2022 Office Visit Dermatology Laura Scherer MD [facility] [address] [place], [place] [address] (Wo rk) documented as [...] Mccollum ? (Age): 1945(73y) Med Rec#: ? [id number] ?Sex: ?M ? [facility] Loc: ? [facility] ?Ht / Wt: ??172(cm)/81(kg) Pt. Loc: ?Echo Lab ?BSA: ?1.94 Study Date: ?? 08/15/2018 ?Pt. Type: Outpatient Tape: ? Referring: MARY ELLEN Reading: Scott Ortega ([id number]) Playground Director: Laura Sargent Diagnosis: *Chronic systolic (congestive) heart [...] E-wave Vmax ?1.2 ?m/sec ? MV deceleration zeik376.4 ? msec ? MV A-wave Vmax ?0.7 [...] ? Mid-Inferior ?Hypokinetic ? Mid-Inferoseptal ?Hypokinetic ? [place]-Septal ? Akinetic ? [place]-Anterior ? Hypokinetic ? [place]-Lateral ?Akinetic ? [place]-Inferior ? Hypokinetic ? [place]-Tip ?Akinetic ? This report has been electronically sign ed by: _ Scott Ortega M.D. ? 08/15/2018 08:17:26 Images reviewed and interpretation ver ied [facility] Cardiac Ultrasound Laboratory Procedure Note Scott Ortega MD - 08/15/2018Format ting of this note might be different from the original. Procedure: Transthoracic Echocardiogram Patient: NATALYA MCBRIDE(Age): [birth year]73y) Med Rec#: [id number] Sex: M Site Loc: [facility] Ht / Wt: 172(cm)/81(kg) Pt. Loc: Echo Lab BSA: 1.94 Study Date: 08/15/2018 Pt. Type: Outpati ent Tape: Referring: MARY ELLEN Reading: Scott Ortega ([id number]) Playground Director: Laura Sargent Diagnosis: *Chronic systolic (congestive) heart [...] MV E-wave Vmax 1.2 m/sec MV deceleration frrg405.4 msec MV A-wave Vmax 0.7 m/sec MV [...] Akinetic Mid-Posterolateral Akinetic Mid-Inferior Hypokinetic Mid-Inferoseptal Hypokinetic [place]-Septal Akinetic [place]-Anterior Hypokinetic [place]-Lateral Akinetic [place]-Inferior Hypokinetic [place]-Tip Akinetic This report has been electronically sign ed by: _ Scott Ortega M.D. 08/15/2018 08:17: 26 Images reviewed and interpretation verif ied [facility] Cardiac Ultrasound Laboratory Danette A Hans INDUSTRIAL PHARMACIST ECHO ORDERABLES documented in this encounter Visit Diagnoses [...] Routine documented in this encounter Care Teams Project Developer Relationship Specialty Start Date End Date Lovely Vicente MD PCP - General 04/16/[address] [place] [address] documented as of this encounter
--- OUTSIDE RECORDS SUMMARY | 2022-03-27 09:20 | XMS_ITS | Encounter Summary ---
:1945 Author Organization [facility] [place] [address] Care Team Providers Name Role Phone Lovely Vicente MD Primary Care Provider Encounter Details Date Type Department Care Team Description 09/06/[address] [facility] Ninfa Clark, [place] [address] Social History Tobacco Use Types Packs/Day [...] Zulma Dolan MD [facility] [place], [place] [address] (Wo rk) 05/28/2022 Laboratory Appointment Lab 05/28/2022 Office Visit Cardiology Zulma Dolan MD [facility] [place] [address] Liz Poole PA [facility] [place] [address] 06/10/2022 Office Visit Dermatology Laura Scherer MD [facility] [address] [place], [place] [address] (Wo rk) documented as of this encounter Visit Diagnoses Not on filedocumented in this encounter Care Teams Revenue Coordinator Relationship Specialty Start Date End Date Lovely Vicente MD PCP - General 04/16/[address] [place] [address] documented as of this encounter
--- OUTSIDE RECORDS SUMMARY | 2022-03-27 09:20 | XMS_ITS | Encounter Summary ---
:1945 Author Organization [facility] [place] [address] Care Team Providers Name Role Phone Lovely Vicente MD Primary Care Provider Encounter Details Date Type Department Care Team Description 09/07/2017 Laboratory Appointment Lab 3L [facility] [place] [phone] Social History Tobacco Use Types Packs/Day Years [...] Cardiology Zulma Dolan MD [facility] [place], [place] [address] (Wo rk) 05/28/2022 Laboratory Appointment Lab 05/28/2022 Office Visit Cardiology Zulma Dolan MD [facility] [place] [address] Liz Poole PA [facility] [place] [address] 06/10/2022 Office Visit Dermatology Laura Scherer MD [facility] ER [address] [place], [place] [address] (Wo rk) documented as of this encounter [...] PM EST) athologist Signature Thyroglobulin 1.4 <=54.9 [facility] ng/mL [facility] Comment: Thyroglobulin levels may be unreliable [...] Organization Address City/State/[place] [address] TSH (09/07/2017 2:41 PM EST) athologist Signature TSH 3.93 0.27 - 4.20 [facility] Specimen Anatomical Collection Method Collection Time Receive d Time (Source) Location / / Volume Laterality Blood specimen 09/07/2017 2:41 PM 018 2:46 (specimen) EST PM EST Resulting Agency Comment Spec In Lab Luz Prescott MD CHEMISTRY ORDERABLES Performing Organization Address City/State/[place] [address] documented in this encounter Visit Diagnoses Diagnosis Hx of papillary thyroid carcinoma Personal history of malignant neoplasm o f thyroid documented in this encounter Care Teams Hydroelectric Plant Maintainer Relationship Specialty Start Date End Date Lovely Vicente MD PCP - General 04/16/[address] [place] [address] documented as of this encounter
--- OUTSIDE RECORDS SUMMARY | 2022-03-27 09:20 | XMS_ITS | Encounter Summary ---
:1945 Author Organization [facility] [place] [address] Care Team Providers Name Role Phone Lovely Vicente MD Primary Care Provider Encounter Details Date Type Department Care Team Description 04/18/2018 Laboratory Appointment Lab 3L [facility] [place] [phone] Social History Tobacco Use Types Packs/Day Years [...] MD [facility] [place] [address] (Wo rk) 05/28/2022 Laboratory Appointment Lab 05/28/2022 Office Visit Cardiology Zulma Dolan MD [facility] [place] [address] Liz Poole PA [facility] [place] [address] 06/10/2022 Office Visit Dermatology Laura Scherer MD [facility] ER [address] [place], [place] [address] (Wo rk) documented as of [...] Signature Total Protein 7.6 6.1 - 8.0 [facility] gm/dL [facility] Albumin 4.0 3.2 - 5.2 [facility] gm/dL [facility] AST 36 0 - 39 [facility] unit/L [facility] ALT 27 0 - 55 [place] unit/L [facility] Alk Phos 96 40 - 120 [facility] unit/L [facility] Total 0.7 0.2 - 1.3 [place] [employer] Bilirubin mg/dL [facility] Bili, Direct 0.1 0.0 - 0.3 [facility] mg/dL [facility] Specimen Anatomical Collection Method Collection Time Receive d Time (Source) Location / / Volume Laterality Blood specimen Venous Draw / 04/18/2018 9:19 AM 2017 9:44 (specimen) Unknown EDT AM EDT Resulting Agency Comment Spec In Lab Danette Maxwell APRN CHEMISTRY ORDERABLES Performing Organization Address City/State/[place] [address] TSH (04/18/2018 9:19 AM EDT) athologist Signature TSH 1.77 0.27 - 4.20 [facility] mlU/ML [facility] Specimen Anatomical Collection Method Collection Time Receive d Time (Source) Location / / Volume Laterality Blood specimen Venous Draw / 04/18/2018 9:19 AM 2017 9:44 (specimen) Unknown EDT AM EDT Resulting Agency Comment Spec In Lab Danette Maxwell APRN CHEMISTRY ORDERABLES Performing Organization Address City/State/ZIP [place] [address] (ABNORMAL) Basic Metabolic Panel (non-fasting) (04/18/2018 9:19 AM EDT) athologist Signature Glucose Lvl 167 65 - 199 [facility] mg/dL [facility] Comment: Diabetes: [...] of body mass or the acutely ill. http://Tervela/[facility]MCnkf eGFR 70 >=60 mL/min/1.73 m?? [facility] Comment: The eGFR was calculated using the CKD-EP I equation. As with all creatinine based estimates of kidney function, eGFR values calculated with the CKD-EPI equation are not accurate in patients wi th acute kidney failure, extremes of body mass or the acutely ill. http://Tervela/DHnkf Specimen Anatomical Collection Method Collection Time Receive d Time (Source) Location / / Volume Laterality Blood specimen 04/18/2018 9:19 AM 018 9:34 (specimen) EDT AM EDT Resulting Agency Comment Spec In Lab Danette Maxwell APRN CHEMISTRY ORDERABLES Performing Organization Address City/[facility]/[place] [address] (ABNORMAL) pro-Brain Natriuretic Peptide (04/18/2018 9:19 AM EDT) P athologist Signature ProBNP 2,199 (H) <=125 [facility] pg/mL [facility] Specimen Anatomical Collection Method Collection Time Receive d Time (Source) Location / / Volume Laterality Blood specimen 04/18/2018 9:19 AM 018 9:34 (specimen) EDT AM EDT Resulting Agency Comment Spec In Lab Danette Maxwell APRN CHEMISTRY ORDERABLES Performing Organization Address City/[facility]/ZIP [place] [address] documented in this encounter Visit Diagnoses Diagnosis Chronic systolic heart failure documented in this encounter Care Teams Curing Pickling Packer Relationship Specialty Start Date End Date Lovely Vicente MD PCP - General 04/16/[address] [place] [address] documented as of this encounter
--- OUTSIDE RECORDS SUMMARY | 2022-03-27 09:20 | XMS_ITS | Encounter Summary ---
:1945 Author Organization [facility] [place] [address] Care Team Providers Name Role Phone Lovely Vicente MD Primary Care Provider Reason for Visit Reason Onset Date Comments Other 03/24/2019 cardiac clearance ne eded Encounter Details Date Type Department Care Team Description 03/24/2019 Telephone Cardiology at [facility] Danette Maxwell, Other (cardiac [facility] FINANCIAL ACCOUNTANT clearance needed) [place] [address] CARDIOLOGY [place], [place] [address] (Wo rk) Social History Tobacco [...] AM EDT Leonela from [facility] [place] called requesting cardiac clearance for this patient who is to have a colonoscopy on 04/04/19. He is on anticoagulation and they will need to bridge him. Their phone # [phone], fax# [phone]. Thank you. documented in this encounter Plan of Treatment Upcoming Encounters Date Type Specialty Care Team Description 05/28/2022 Appointment Cardiology Zulma Dolan MD [facility] [place], [place] [address] (Wo rk) 05/28/2022 Laboratory Appointment Lab 05/28/2022 Office Visit Cardiology Zulma Dolan MD [facility] [place] [address] Liz Poole PA [facility] [place] [address] 06/10/2022 Office Visit Dermatology Laura Scherer MD [facility] [address] [place], [place] [address] (Wo rk) documented as of this encounter Visit Diagnoses Not on filedocumented in this encounter Care Teams Supervisor Computer Operations Relationship Specialty Start Date End Date Lovely Vicente MD PCP - General 04/16/[address] [place] [address] documented as of this encounter
--- OUTSIDE RECORDS SUMMARY | 2022-03-27 09:20 | XMS_ITS | Encounter Summary ---
:1945 Author Organization [facility] [place] [address] Care Team Providers Name Role Phone Lovely Vicente MD Primary Care Provider Reason for Referral Consultation (Routine) - Specialty Diagnoses / Procedures Referred By Contact Refer red To Contact [facility] Diagnoses Atheroembolism of foot, right Delayed surgical wound healing, subsequent encounter Aurelia Rivera PA [address] [facility] [place] [address] Referral ID Status Reason Start Date Expiration Date Visits V isits Requested Authorized [id number] Consult, 09/08/2017 03/07/2018 1 1 Test & Treat Reason for Visit Reason Comments Wound Check My foot hurts Encounter Details Date Type Department Care Team Description 09/07/2017 Office Visit Vascular Surgery at MiguelAurelia PA Atheroembolism of foot, right; [facility] Delayed surgical wound healing, subseque nt encounter [facility] [place] [phone] Social History Tobacco Use Types Packs/Day Years [...] at home for VAC dressing changes from [facility]. Since his last visit his right forefoot wound [facility] with [...] by Manny Mcknight MD at [facility] MAIN OR ??? PRO AMPUTATION FOOT, TRANSMETATARSAL Right 08/09/2017 AMPUTATION, TRANSMETATARSAL (WRVU 12.71) performed by Yonathan Smith MD at [facility] MAIN OR ??? PRO CABG, ARTERIAL, SINGLE N/A 07/07/2017 @CABG, USING ARTERIAL GRAFT;SINGLE ARTERIAL GRAFT (WRVU 33.75) performed by Yuan Retana MD at [facility] MAIN OR ??? PRO CABG, ARTERY-VEIN, TWO N/A 07/07/2017 @CABG, TWO VENOUS GRAFTS & ARTERIAL GRAFT (WRVU 7.93) performed by Yuan Retana MD at [facility] MAIN OR ??? PRO COLONOSCOPY, REMV LESN, SNARE 01/16/2014 COLONOSCOPY, POLYPECTOMY, REMOVAL LESION BY SNARE performed by Nohemi Jaimes MD at [facility] ENDOSCOPY ??? PRO DRESSING CHANGE UNDER ANESTHESIA Right 08/11/2017 (MSURG) DRESSING CHANGE (FOR OTHER THAN IVAN) UNDER ANES. (WRVU 0.86) performed by Lamar Smith MD at [facility] MAIN OR ??? PRO ENDOSCOPY W/VIDEO-ASST VEIN HARVEST, CABG Right 07/07/2017 ENDOSCOPIC HARVEST VEIN(S) FOR CABG (WRVU 0.31) performed by Yuan Retana MD at [facility] MAIN OR ??? PRO THYROIDECTOMY 03/28/2013 THYROIDECTOMY, TOTAL OR COMPLETE performed by Manny Mcknight MD at [facility] OR Social Hx: Social History [...] Zulma Dolan MD [facility] [place], [place] [address] (Wo rk) 05/28/2022 Laboratory Appointment Lab 05/28/2022 Office Visit Cardiology Zulma Dolan MD [facility] [place] [place] [address] Liz Poole PA [facility] Dr [place]iology [place] [address] 06/10/2022 Office Visit Dermatology Laura Scherer MD [facility] [address] [place], [place] [address] (Wo rk) Scheduled Referrals Name Type Priority Associated Diagnoses Order S chedule Referral to Wound Outpatient Referral Routine Atheroembolism o f foot, Ordered: Clinic right 09/08/2017 Delayed surgical wound healing, subsequent encounter documented as of this encounter Visit Diagnoses Diagnosis Atheroembolism of foot, right Delayed surgical wound healing, subseque nt encounter documented in this encounter Care Teams Helmet Hat Puncher Relationship Specialty Start Date End Date Lovely Vicente MD PCP - General 04/16/[address] [facility] [address] [place] [address] documented as of this encounter
--- OUTSIDE RECORDS SUMMARY | 2022-03-27 09:20 | XMS_ITS | Encounter Summary ---
:1945 Author Organization [facility] [place] [address] Care Team Providers Name Role Phone Lovely Vicente MD Primary Care Provider Reason for Visit Reason Comments Follow-up Skin Check Encounter Details Date Type Department Care Team Description 01/06/2018 Office Visit Dermatology at [facility] nevi; Abdelrahman HOOPER MD History of melanoma; [address] [facility] [place] [address] [facility] [place], [place] [address] Social History Tobacco Use [...] MD [facility] [address] [place], [place] [address] (Wo rk) 05/28/2022 Laboratory Appointment Lab 05/28/2022 Office Visit Cardiology Zulma Dolan MD [facility] [place] [address] Liz Poole PA [facility] [place] [address] 06/10/2022 Office Visit Dermatology Laura Scherer MD [facility] [address] [place], [place] [address] (Wo rk) documented as of this encounter Visit Diagnoses Diagnosis Multiple nevi Benign neoplasm of skin, site unspecifie d History of melanoma Personal history of malignant melanoma o f skin Seborrheic keratosis Other seborrheic keratosis documented in this encounter Care Teams Knockdown Man Relationship Specialty Start Date End Date Lovely Vicente MD PCP - General 04/16/[address] [place] [address] documented as of this encounter
--- OUTSIDE RECORDS SUMMARY | 2022-03-27 09:20 | XMS_ITS | Encounter Summary ---
:1945 Author Organization [facility] [place] [address] Care Team Providers Name Role Phone Lovely Vicente MD Primary Care Provider Reason for Referral Diagnostic Test (Routine) - Closed Specialty Diagnoses / Procedures Referred By Contact Refer red To Contact Cardiology Diagnoses Ischemic cardiomyopathy Acute on chronic systolic congestive heart failure Danette Maxwell APRN [facility] Non-Inv Card Lab Procedures Echocardiogram Transthoracic(Leb) [facility] [place] [address] [place] [address] Referral ID Status Reason Start Date Expiration Date Visits V isits Requested Authorized [id number] Closed Specialty 08/30/2017 08/30/2018 1 1 Service Requested Reason for Visit Diagnostic Test (Routine) - Closed Specialty Diagnoses / Procedures Referred By Contact Refer red To Contact Cardiology Diagnoses Ischemic cardiomyopathy Acute on chronic systolic congestive heart failure Danette Maxwell APRN [facility] Non-Inv Card Lab Procedures Echocardiogram Transthoracic(Leb) [facility] [place] [address] [place] [address] Referral ID Status Reason Start Date Expiration Date Visits V isits Requested Authorized [id number] Closed Specialty 08/30/2017 08/30/2018 1 1 Service Requested Encounter Details Date Type Department Care Team Description 10/07/2017 Hospital Encounter Non-Invasive Ischemic cardiomyopathy; Cardiology Lab Barbara Craig on chronic systolic [place] [address] Social History Tobacco Use Types Packs/Day [...] 05/28/2022 Appointment Cardiology Zulma Dolan MD [facility] Medical [facility] [address] [place], [place] [address] (Wo rk) 05/28/2022 Laboratory Appointment Lab 05/28/2022 Office Visit Cardiology Zulma Dolan MD [facility] [place] [address] Liz Poole PA [facility] [place] [address] 06/10/2022 Office Visit Dermatology Laura Scherer MD [facility] [address] [place], [place] [address] (Wo rk) documented as of [...] P athologist Signature EF 45 HEARTLAB SYSTEM Anatomical Region Laterality Modality Other Specimen (Source) Anatomical Location Collection Method / Collectio n Time Received Time / Laterality Volume 10/07/2017 Narrative 10/07/2017 11:13 AM EDT Procedure: ?Transthoracic Echocardiogram Patient: ?NATALYA Mccollum ? (Age): 1945(72y) Med Rec#: ? [id number] ?Sex: ?M ? Site Loc: ? [facility] ?Ht / Wt: ??173(cm)/82(kg) Pt. Loc: ?Echo Lab ?BSA: ?1.96 Study Date: ?? 10/07/2017 ?Pt. Type: Outpatient Tape: ? Referring: Danette Maxwell Reading: Iker Cuevas ([id number]) Commercial Production Editor: Yonathan Bocanegra Diagnosis: *ICD-10-PCS Ischemic cardiomyopathy (I2 [...] E-wave Vmax ?1.2 ?m/sec ? MV deceleration [id number] ?msec ? MV A-wave Vmax ?1 ?m/sec [...] ? Mid-Inferior ?Hypokinetic ? Mid-Inferoseptal ?Hypokinetic ? Amalia-Septal ? Akinetic ? Amalia-Anterior ? Hypokinetic ? Amalia-Lateral ?Hypokinetic ? Amalia-Inferior ? Hypokinetic ? Amalia-Tip ?Akinetic ? This report has been electronically sign ed by: _ Iker Cuevas M.D. ? 10/07/2017 11:12:34 Images reviewed and interpretation verif ied [facility] Cardiac Ultrasound Laboratory Procedure Note Iker Cuevas MD - 10/07/2017Formatti ng of this note might be different from the original. Procedure: Transthoracic Echocardiogram Patient: NATALYA MCBRIDE(Age): [birth year]72y) Med Rec#: [id number] Sex: M Site Loc: [facility] Ht / Wt: 173(cm)/82(kg) Pt. Loc: Echo Lab BSA: 1.96 Study Date: 10/07/2017 Pt. Type: Outpati ent Tape: Referring: Danette Maxwell Reading: Iker Cuevas ([id number]) Commercial Production Editor: Yonathan Bocanegra Diagnosis: *ICD-10-PCS Ischemic cardiomyopathy (I2 [...] MV E-wave Vmax 1.2 m/sec MV deceleration [id number] msec MV A-wave Vmax 1 m/sec MV [...] Akinetic Mid-Posterolateral Hypokinetic Mid-Inferior Hypokinetic Mid-Inferoseptal Hypokinetic Amalia-Septal Akinetic Amalia-Anterior Hypokinetic Amalia-Lateral Hypokinetic Amalia-Inferior Hypokinetic Amalia-Tip Akinetic This report has been electronically sign ed by: _ Iker Cuevas M.D. 10/07/2017 11:12 :34 Images reviewed and interpretation elvie hwang [facility] Cardiac Ultrasound Laboratory Danette Maxwell APRN ECHO ORDERABLES documented in this encounter Visit [...] documented in this encounter Care Teams Machine Stripper Relationship Specialty Start Date End Date Lovely Vicente MD PCP - General 04/16/[address] [place] [address] documented as of this encounter
--- OUTSIDE RECORDS SUMMARY | 2022-03-27 09:20 | XMS_ITS | Encounter Summary ---
:1945 Author Organization [facility] [place] [address] Care Team Providers Name Role Phone Lovely Vicente MD Primary Care Provider Encounter Details Date Type Department Care Team Description 11/29/2017 Hospital Encounter Vascular Lab at Janett Walter PAD (peripheral [facility], RVT artery [facility]) [place] [id number] Social History Tobacco Use Types Packs/Day Years [...] Dolan MD [facility] [address] [place], [place] [address] (Wo rk) 05/28/2022 Laboratory Appointment Lab 05/28/2022 Office Visit Cardiology Zulma Dolan MD [facility] [place] [address] Liz Poole PA [facility] [place] [address] 06/10/2022 Office Visit Dermatology Laura Scherer MD [facility] [address] [place], [place] [address] (Wo rk) documented as of this encounter Procedures Procedure Name Priority Date/Time Associated Diagnosis Comme nts ARTERIAL DUPLEX LEG Routine 11/29/2017 10:32 AM PAD (periphera l Results for this UNILA EDT artery disease) procedure ar e in the results section. documented in this encounter Results Arterial Duplex Leg, Unil (11/29/2017 10:32 AM EDT) Component Value Ref Test Analysis Performed At [facility] Range Method Time Signature VB Text Department: Vascular Surgery Lab VASCUBASE Report Patient: [id number] (DON HOANG) CPT: 03877 ICD10: I72.4;I73.9 Referring Physician: DANETTE MAXWELL ?? [...] unspecified documented in this encounter Care Teams Commercial Credit Reviewer Relationship Specialty Start Date End Date Lovely Vicente MD PCP - General 04/16/[address] [place], [place] [address]Y [facility] 1 [place] [address] documented as of this encounter
--- OUTSIDE RECORDS SUMMARY | 2022-03-27 09:20 | XMS_ITS | Encounter Summary ---
:1945 Author Organization [facility] [place] [address] Care Team Providers Name Role Phone Lovely Vicente MD Primary Care Provider Reason for Visit Reason Comments Establish Care Atrial Fibrillation Congestive Heart Failure Cardiomyopathy Encounter Details Date Type Department Care Team Description 09/06/2019 [facility] Osvaldo STRANGE [address] [facility] [address] [place], [place] CARDIOLOGY DEPT. [address] [place] [address] [phone] Social History Tobacco Use Types Packs/Day Years [...] today For any questions, call my office: [phone] To access your health care information, go to the web at: [email or web address] (you will need to register) For educational materials: [email or web address] Karel TRAM[facility]LL[facility], Clinical Cardiac Electrophysiology, [facility], [facility] A Healthy Heart: After Your [...] least 2 servings of fish a week. [place], mackerel, mcfadden, sardines, and chunk light tuna [...] irregular heartbeat. After you call 911, the roller mill operator may tell you to chew 1 [...] more? Visit our health information library at [email or web address]. You can also view health information on [employer], your personal patient account. Log in or sign up today. Enter F075 in the search box to learn more about A Healthy Heart: After Your Visit. ?? [phone] [employer]. documented in this encounter Progress Notes Karel Mcelroy MD - 09/06/2019 2:20 PM EST Images from the original note were not included. Section of Cardiology/Cardiac Electrophysiology [facility] Clinical Cardiac Electrophysiology Consult Patient ID Don Fatima 1945 [id number] Don Fatima is referred to the EP clinic by Danette Maxwell APRN PhD Chief Complaint Dyspnea on exertion Ischemic cardiomyopathy History This is a 74 y.o. male following up/being seen in clinic for evaluation for ongoing anticoagulation. He has a Shyra1Lkfk score of ~ 6-7. 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, can walk [...] on phone: None Gets together: None Attends mu-ism service: None Active member of club or [...] reviewed the ECG: sinus rhythm, 72 bpm, IL 140 ms, QRS 100 ms, QT 400 [...] EP clinic KAREL MCELROY MD Cardiac Electrophysiology [facility] T: [phone] F: [phone] 35 minutes of this 40 minute encounter were spent in counselling, as described above Cc: MD Danette Cr APRN PhD Janett Espino DPM documented in this encounter Plan of Treatment Upcoming Encounters Date Type Specialty Care Team Description 05/28/2022 Appointment Cardiology Zulma Dolan MD [facility] [place], [place] [address] (Wo rk) 05/28/2022 Laboratory Appointment Lab 05/28/2022 Office Visit Cardiology Zulma Dolan MD [facility] [place] [address] Liz Poole PA [facility] [place] [address] 06/10/2022 Office Visit Dermatology Laura Scherer MD [facility] [address] [place], [place] [address] (Wo rk) documented as of [...] 446 ms MUSE SYSTEM (Bezet) Calculated P [place] 37 degrees MUSE SYSTEM Calculated R [place] -23 degrees MUSE SYSTEM Calculated T [place] 116 degrees MUSE SYSTEM INTERPRETATION Normal sinus rhythm MUSE SYSTEM Inferior infarct (cited on or before 25-JAN-2013) ST & T wave abnormality, consider anterolateral ischemia Abnormal ECG When compared with ECG of 19-AUG-2017 10:23, No significant change was found Confirmed by MD Cande, Michael ([id number]) on 09/08/2019 10:22:4 7 AM Specimen Anatomical [...] disease documented in this encounter Care Teams Career Developer Relationship Specialty Start Date End Date Lovely Vicente MD PCP - General 04/16/[address] [place] [address] documented as of this encounter
--- OUTSIDE RECORDS SUMMARY | 2022-03-27 09:20 | XMS_ITS | Encounter Summary ---
:1945 [place] [address] Care Team Providers Name Role Phone Lovely Vicente MD Primary Care Provider Encounter Details Date Type Department Care Team Description 08/15/2018 Laboratory [facility]ointment Lab [facility] [place] [address] Social History Tobacco Use Types Packs/Day [...] MD [facility] [place] [address] [place], [place] [address] (Wo rk) 05/28/2022 Laboratory Appointment Lab 05/28/2022 Office Visit Cardiology Zulma Dolan MD [facility] [place] [address] Liz Poole PA [facility] [place] [address] 06/10/2022 Office Visit Dermatology Laura Scherer MD [facility] ER [address] [place], [place] [address] (Wo rk) documented as of this encounter Procedures Procedure Name Priority Date/Time Associated Diagnosis Comme nts PROTHROMBIN TIME Routine 08/15/2018 8:04 AM Resul ts for this EST procedure are i n the results section. documented in this encounter Results (ABNORMAL) Prothrombin Time (08/15/2018 8:04 AM EST) P athologist Signature PT 24.0 (H) 9.4 - 12.5 [facility] LABORATORY INR 2.1 [facility] Comment: An INR <2.0 [...] Address City/State/ZIP [place] [address] documented in this encounter Visit Diagnoses Not on filedocumented in this encounter Care Teams Field Checker Relationship Specialty Start Date End Date Lovely Vicente MD PCP - General 04/16/[address] [place] [address] documented as of this encounter
--- OUTSIDE RECORDS SUMMARY | 2022-03-27 09:20 | XMS_ITS | Encounter Summary ---
:1945 Author Organization [facility] Address [facility] [place] [address] Care Team Providers Name Role Phone Lovely Vicente MD Primary Care Provider Reason for Referral Diagnostic Test (Routine) - Closed Specialty Diagnoses / Procedures Referred By Contact Refer red To Contact Cardiology Diagnoses Chronic systolic heart failure Danette Maxwell APRN [facility] Non-Inv Card Lab Procedures Echocardiogram Transthoracic(Leb) [facility] [place] [address] [place] [address] Referral ID Status Reason Start Date Expiration Date Visits V isits Requested Authorized [id number] Closed Specialty 07/17/2019 09/14/2019 1 1 Service Requested Encounter Details Date Type Department Care Team Description 01/16/2019 Office Visit Cardiology at [facility] Danette Maxwell, Chronic systolic heart failu re; [facility] STACIE Cardiomyopathy, ischemic; Drive [facility] Hx of thyroid cancer; [place], [place] DR ELMORE (arteriosclerotic heart disease); [phone] CARDIOLOGY MARIA VICTORIA (obstructive sleep apnea) on CPAP [phone] [place], [place] [address] (Wo rk) Social History Tobacco Use Types [...] K+ 4.6 today 6. Post-op atrial fibrillation [id number] 7 (CHF, HTN, DM, vascular disease, thromboembolism) [...] Cardiology Zulma Dolan MD [facility] [place], [place] [address] (Wo rk) 05/28/2022 Laboratory Appointment Lab 05/28/2022 Office Visit Cardiology Zulma Dolan MD [facility] [place] [address] Liz Poole PA [facility] [place] [address] 06/10/2022 Office Visit Dermatology Laura Scherer MD [facility] [address] [place], [place] [address] (Wo rk) documented as of this encounter Results ECHOCARDIOGRAM COMPLETE W CONTRAST (07/28/2019 8:19 AM EST) athologist Signature EF 40 [facility] SYSTEM Anatomical Region Laterality Modality Other Specimen (Source) Anatomical Location Collection Method / Collectio n Time Received Time / Laterality Volume 07/28/2019 Narrative 07/28/2019 8:38 AM EST Procedure: ?Transthoracic Echocardiogram Patient: ?NATALYA Mccollum ? (Age): 1945(74y) Med Rec#: ? [id number] ?Sex: ?M ? Site Loc: ? [facility] ?Ht / Wt: ??172(cm)/81(kg) Pt. Loc: ?Echo Lab ?BSA: ?1.94 Study Date: ?? 07/28/2019 ?Pt. Type: Outpatient Tape: ? Referring: MARY ELLEN Reading: Ifeanyi Truong ([id number]) Social Work Manager: Fadumo Flanagan RDCS, REGINA Diagnosis: *Chronic [...] E-wave Vmax ?1 ?m/sec ? MV deceleration qkyw465.5 ? msec ? MV A-wave Vmax ?1 [...] ? Pulmonic Valve/Qp:Qs ?Value ?Units (Range) ? CA end-diastolic Vma1.1 ?m/sec ? Wall Motion: Segment Name ?Rest ? Base-Anteroseptal ?? Normal ? Base-Anterior ? Normal ? Base-Anterolateral ??Normal ? Base-Posterolateral Normal ? Base-Inferior ? Akinetic ? Base-Inferoseptal ?? Normal ? Mid-Anteroseptal ?Normal ? Mid-Anterior ?Hypokinetic ? Mid-Anterolateral ?? Normal ? Mid-Posterolateral ??Normal ? Mid-Inferior ?Hypokinetic ? Mid-Inferoseptal ?Normal ? Erie-Septal ? Normal ? Erie-Anterior ? Hypokinetic ? Erie-Lateral ?Normal ? Erie-Inferior ? Akinetic ? Erie-Tip ?Hypokinetic ? This report has been electronically sign ed by: _ Ifeanyi Truong M.D. ? 07/28/2019 0 8:38:01 Images reviewed and [facility] Procedure Note Ifeanyi Truong MD - 07/28/2019Formatt ing of this note might be different from the original. Procedure: Transthoracic Echocardiogram Patient: NATALYA MCBRIDE(Age): [birth year]74y) Med Rec#: [id number] Sex: M Site Loc: [facility] Ht / Wt: 172(cm)/81(kg) Pt. Loc: Echo Lab BSA: 1.94 Study Date: 07/28/2019 Pt. Type: Outpati ent Tape: Referring: MARY ELLEN Reading: Ifeanyi Truong ([id number]) Social Work Manager: Fadumo Flanagan [facility], [place] Diagnosis: *Chronic systolic (congestive) heart fa [...] MV E-wave Vmax 1 m/sec MV deceleration mrap631.5 msec MV A-wave Vmax 1 m/sec MV [...] 0.7 ratio Pulmonic Valve/Qp:Qs Value Units (Range) CA end-diastolic Vma1.1 m/sec Wall Motion: Segment Name Rest Base-Anteroseptal Normal Base-Anterior Normal Base-Anterolateral Normal Base-Posterolateral Normal Base-Inferior Akinetic Base-Inferoseptal Normal Mid-Anteroseptal Normal Mid-Anterior Hypokinetic Mid-Anterolateral Normal Mid-Posterolateral Normal Mid-Inferior Hypokinetic Mid-Inferoseptal Normal Erie-Septal Normal Erie-Anterior Hypokinetic Erie-Lateral Normal Erie-Inferior Akinetic Erie-Tip Hypokinetic This report has been electronically sign ed by: _ Ifeanyi Truong M.D. 07/28/2019 08:38:0 1 Images reviewed and interpretation verif ied [facility] Cardiac Ultrasound Laboratory Danette Maxwell APRN ECHO ORDERABLES (ABNORMAL) Basic Metabolic Panel (non-fasting) (01/16/2019 7:49 AM EDT) P athologist Signature Glucose Lvl 105 65 - 199 [facility] mg/dL [facility] Comment: Diabetes: >=200 [...] of body mass or the acutely ill. http://Heart Genetics/Nanalysisnkf eGFR 79 >=60 mL/min/1.73 m?? [facility] Comment: The eGFR was calculated using the CKD-EP I equation. As with all creatinine based estimates of kidney function, eGFR values calculated with the CKD-EPI equation are not accurate in patients wi th acute kidney failure, extremes of body mass or the acutely ill. http://[employer] Genetics/[facility] TULSAnkf Specimen Anatomical Collection Method Collection Time Receive d Time (Source) Location / / Volume Laterality Blood specimen 01/16/2019 7:49 AM 019 7:55 (specimen) EDT AM EDT Resulting Agency Comment Spec In Lab Danette Maxwell APRN CHEMISTRY ORDERABLES Performing Organization Address City/State/[place] [address] (ABNORMAL) pro-Brain Natriuretic Peptide (01/16/2019 7:49 AM EDT) P athologist Signature ProBNP 780 (H) <=125 pg/mL [facility] Specimen Anatomical Collection Method Collection Time Receive d Time (Source) Location / / Volume Laterality Blood specimen 01/16/2019 7:49 AM 019 7:55 (specimen) EDT AM EDT Resulting Agency Comment Spec In Lab Danette Maxwell RUBBER BLOCK LAYER CHEMISTRY ORDERABLES Performing Organization Address City/State/[place] [address] documented in this encounter Visit Diagnoses Diagnosis Chronic systolic heart failure Cardiomyopathy, ischemic Other specified forms of chronic ischemi c heart disease Hx of thyroid cancer Personal history of malignant neoplasm o f thyroid ASHD (arteriosclerotic heart disease) Coronary atherosclerosis of unspecified type of vessel, [place] or graft MARIA VICTORIA (obstructive sleep apnea) on CPAP Obstructive sleep apnea (adult) (pediatr ic) Chronic systolic heart failure documented in this encounter Care Teams Equipment Operator Wage Hand Relationship Specialty Start Date End Date Lovely Vicente MD PCP - General 04/16/[address] [place] [address] documented as of this encounter
--- OUTSIDE RECORDS SUMMARY | 2022-03-27 09:20 | XMS_ITS | Encounter Summary ---
:1945 Author Organization [facility] [place] [address] Care Team Providers Name Role Phone Lovely Vicente MD Primary Care Provider Reason for Visit Reason Onset Date Comments Other 11/11/2017 Please call [facility] Encounter Details Date Type Department Care Team Description 11/11/2017 Telephone Cardiology at [facility] Danette Maxwell, Other (Please call [facility] LIME BOILER [facility] ) [place] [address] CARDIOLOGY [place], [place] [address] (Wo rk) Social [...] Cardiology Zulma Dolan MD [facility] [address] [place], [place] [address] (Wo rk) 05/28/2022 Laboratory Appointment Lab 05/28/2022 Office Visit Cardiology Zulma Dolan [place] [facility] [place] [address] Liz Poole PA [facility] [place] [address] 06/10/2022 Office Visit Dermatology Laura Scherer MD [facility] [address] [place], [place] [address] (Wo rk) documented as of this encounter Visit Diagnoses Not on filedocumented in this encounter Care Teams Frit Mixer And Burner Relationship Specialty Start Date End Date Lovely Vicente MD PCP - General 04/16/15 [facility] [address] [place] [address] documented as of this encounter
--- OUTSIDE RECORDS SUMMARY | 2022-03-27 09:20 | XMS_ITS | Encounter Summary ---
:1945 Author Organization [facility] [place] [address] Care Team Providers Name Role Phone Lovely Vicente MD Primary Care Provider Encounter Details Date Type Department Care Team Description 09/03/2017 Telephone Vascular Surgery at [facility] Ninfa Clark, [place] [address] Social History Tobacco Use Types Packs/Day [...] help with the discomfort of the change. Cut Off Sawyer told the VNA that I would ask [...] Appointment Cardiology Zulma Dolan MD [facility] [place], [place] [address] (Wo rk) 05/28/2022 Laboratory Appointment Lab 05/28/2022 Office Visit Cardiology Zulma Dolan MD [facility] [place] [address] Liz Poole PA [facility] [place] [address] 06/10/2022 Office Visit Dermatology Laura Scherer MD [facility] [address] [place], [place] [address] (Wo rk) documented as of this encounter Visit Diagnoses Not on filedocumented in this encounter Care Teams Folder Stitcher Operator Relationship Specialty Start Date End Date Lovely Vicente MD PCP - General 04/16/[address] [place] [address] [address] [facility] [address] [place] [address] documented as of this encounter
--- OUTSIDE RECORDS SUMMARY | 2022-03-27 09:20 | XMS_ITS | Encounter Summary ---
:1945 [place] [address] Care Team Providers Name Role Phone Lovely Vicente MD Primary Care Provider Encounter Details Date Type Department Care Team Description 07/12/2019 Office Visit Dermatology at [facility], Rigoberto Yarbrough (actinic keratosis); MD SHAY Quick III (seborrheic keratosis); [address] [facility] Multiple benign nevi; [place] [address] History of melanoma [phone] [facility]-DER[facility] [place], [place] [address] Social History Tobacco Use Types [...] Description 05/28/2022 Appointment Cardiology Zulma Dolan MD [facility] [address] [place], [place] [address] (Wo rk) 05/28/2022 Laboratory Appointment Lab 05/28/2022 Office Visit Cardiology Zulma Dolan MD [facility] [place] [address] Liz Poole PA [facility] [place]iology [place] [address] 06/10/2022 Office Visit Dermatology Laura Scherer MD [facility] [address] [place], [place] [address] (Wo rk) documented as of this encounter Visit Diagnoses Diagnosis AK (actinic keratosis) Actinic keratosis SK (seborrheic keratosis) Other seborrheic keratosis Multiple benign nevi Benign neoplasm of skin, site unspecifie d History of melanoma Personal history of malignant melanoma o f skin documented in this encounter Care Teams Gym Teacher Relationship Specialty Start Date End Date Lovely Vicente MD PCP - General 04/16/15 [facility] [address] [place] [address] documented as of this encounter
--- OUTSIDE RECORDS SUMMARY | 2022-03-27 09:20 | XMS_ITS | Encounter Summary ---
:1945 Author Organization [facility] Address [facility] [place] [address] Care Team Providers Name Role Phone Lovely Vicente MD Primary Care Provider Encounter Details Date Type Department Care Team Description 10/07/2017 Office Visit Cardiology at [facility] Danette Maxwell Chronic systolic heart failu re; [facility] A, OCEAN BIOLOGIST S/P CABG x 3; Drive [facility] On amiodarone therapy; [place], [place] Atrial fibrillation, unspecified type; [phone] CARDIOLOGY ASCVD (arteriosclerotic cardiovascular d isease) [phone] [place], [place] [address] Social History Tobacco Use Types [...] - documented in this encounter Progress Notes Esparto Danette A, OCEAN BIOLOGIST - 10/07/2017 11:20 AM EDT ID and [...] 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 Espino On IV antibiotics at [facility] Today: Mr. Fatima is accompanied by [...] to see Dr. Bains well at [facility] and follow his wound on his right lower extremity. And she will continue to direct antibiotic treatment. Ihave asked that the echocardiogram results be faxed to Dr. Zurita at [facility]. 1. ASCVD Continue ASA, BB and [...] and bone removal by Dr. Aguero at [facility]. Currently receiving IV antibiotics at [facility] ? Plan: 1. A review of [...] [facility] [place], [place] [address] (Wo rk) 05/28/2022 Laboratory Appointment Lab 05/28/2022 Office Visit Cardiology Zulma Dolan MD [facility] [place] [address] Liz Poole PA [facility] [place] [address] 06/10/2022 Office Visit Dermatology Laura Scherer MD [facility] [address] [place] [place], [place] [address] (Wo rk) documented as of this encounter Results (ABNORMAL) Basic Metabolic Panel (non-fasting) (10/07/2017 8:48 AM EDT) athologist Signature Glucose Lvl 99 65 - 199 [facility] mg/dL [facility] Comment: Diabetes: >=200 mg/dL plus symp toms BUN 27 (H) 10 - 20 mg/dL [facility] Creatinine 1.07 0.80 - [...] 15 mmol/L [facility] Calcium 8.4 (L) 8.5 - 10.5 mg/dL [facility] Estimated GFR >60 >=60 [facility] Comment: The reported eGFR should be multiplied b y 1.2 for patients. The MDRD is not an appropriate measure o f renal function for patients with body mass extremes or in patients with acute kidney failure. http://[employer].Sparkcloud/DHnkdep http://Groupize.com/DHMCnkf Specimen Anatomical Collection Method Collection Time Receive d Time (Source) Location / / Volume Laterality Blood specimen 10/07/2017 8:48 AM 018 8:50 (specimen) EDT AM EDT Resulting Agency Comment Spec In Lab Danette Maxwell APRN CHEMISTRY ORDERABLES Performing Organization Address City/State/[place] [address] (ABNORMAL) pro-Brain Natriuretic Peptide (10/07/2017 8:48 AM EDT) P athologist Signature ProBNP 1,170 (H) <=125 [facility] pg/mL [facility] Specimen Anatomical Collection Method Collection Time Receive d Time (Source) Location / / Volume Laterality Blood specimen 10/07/2017 8:48 AM 018 8:50 (specimen) EDT AM EDT Resulting Agency Comment Spec In Lab Danette Maxwell APRN CHEMISTRY ORDERABLES Performing Organization Address City/State/[place] [address] documented in this encounter Visit Diagnoses Diagnosis Chronic systolic heart failure S/P CABG x 3 Postsurgical aortocoronary bypass status On amiodarone therapy Atrial fibrillation, unspecified type ASCVD (arteriosclerotic cardiovascular d isease) Unspecified cardiovascular disease documented in this encounter Care Teams Box Chipper Relationship Specialty Start Date End Date Lovely Vicente MD PCP - General 04/16/[address] [place] [address] documented as of this encounter
--- OUTSIDE RECORDS SUMMARY | 2022-03-27 09:20 | XMS_ITS | Encounter Summary ---
:1945 Author Organization [facility] [place] [address] Care Team Providers Name Role Phone Lovely Vicente MD Primary Care Provider Encounter Details Date Type Department Care Team Description 10/05/2017 Unscheduled Cardiology at [facility] RONNIE Sin PATIENT NOT SEEN Encounter [facility] Tamiko Martinez MD [facility] [phone] CARDIOLOGY DEPT [phone] [place] [address] Social History Tobacco Use Types Packs/Day Years [...] Dolan MD [facility] [address] [place], [place] [address] (Wo rk) 05/28/2022 Laboratory Appointment Lab 05/28/2022 Office Visit Cardiology Zulma Dolan MD [facility] [place] [address] Liz Poole PA [facility] [place] [address] 06/10/2022 Office Visit Dermatology Laura Scherer MD [facility] [address] [place], [place] [address] (Wo rk) documented as of this encounter Visit Diagnoses Diagnosis DH PATIENT NOT SEEN documented in this encounter Care Teams Buckle Attacher Relationship Specialty Start Date End Date Lovely Vicente MD PCP - General 04/16/[address] [place] [address] documented as of this encounter
--- OUTSIDE RECORDS SUMMARY | 2022-03-27 09:20 | XMS_ITS | Encounter Summary ---
:1945 Author Organization [facility] [place] [address] Care Team Providers Name Role Phone Lovely Vicente MD Primary Care Provider Encounter Details Date Type Department Care Team Description 07/28/2019 Laboratory Appointment Lab 3L [facility] [place] [address] Social History Tobacco Use Types Packs/Day Years [...] MD [facility] [place], [place] [address] (Wo rk) 05/28/2022 Laboratory Appointment Lab 05/28/2022 Office Visit Cardiology Zulma Dolan MD [facility] [place] [address] Liz Poole PA [facility] [place] [address] 06/10/2022 Office Visit Dermatology Laura Scherer MD [facility] [address] [place] [address] (Wo rk) documented as of this encounter [...] City/State/[place] [address] (ABNORMAL) Basic Metabolic Panel (non-fasting) (07/28/2019 8:36 AM EST) athologist Signature Glucose Lvl 153 65 - 199 [facility] mg/dL [facility] Comment: [...] mg/dL [facility] Estimated GFR 70 >=60 mL/min/1.73 m?? [facility] Comment: The eGFR was calculated using the CKD-EP I equation. As with all creatinine based estimates of kidney function, eGFR values calculated with the CKD-EPI equation are not accurate in patients wi th acute kidney failure, extremes of body mass or the acutely ill. http://Glory Medical/Concept Inboxnkf eGFR 81 >=60 mL/min/1.73 m?? [facility] Comment: The eGFR was calculated using the CKD-EP I equation. As with all creatinine based estimates of kidney function, eGFR values calculated with the CKD-EPI equation are not accurate in patients wi th acute kidney failure, extremes of body mass or the acutely ill. http://Glory Medical/[facility] CITYnkf Specimen Anatomical Collection Method Collection Time Receive d Time (Source) Location / / Volume Laterality Blood specimen 07/28/2019 8:36 AM 020 8:46 (specimen) EST AM EST Resulting Agency Comment Spec In Lab Danette Maxwell APRN CHEMISTRY ORDERABLES Performing Organization Address City/State/[place] [address] documented in this encounter Visit Diagnoses Diagnosis Chronic systolic heart failure documented in this encounter Care Teams Kitchen Utility Associate Relationship Specialty Start Date End Date Lovely Vicente MD PCP - General 04/16/[address] [place] [address] documented as of this encounter
--- OUTSIDE RECORDS SUMMARY | 2022-03-27 09:20 | XMS_ITS | Encounter Summary ---
:1945 Author Organization [facility] [place] [address] Care Team Providers Name Role Phone Lovely Vicente MD Primary Care Provider Encounter Details Date Type Department Care Team Description 11/29/2017 Laboratory Lab 3L [place] Chronic systoli c congestive heart failure; Appointment [facility] ASCVD (ar teriosclerotic cardiovascular disease); Hospital Cardiomyopathy, [place] [address] Social History Tobacco Use Types [...] Dolan MD [facility] [place], [place] [address] (Wo rk) 05/28/2022 Laboratory Appointment Lab 05/28/2022 Office Visit Cardiology Zulma Dolan MD [facility] [place] [address] Liz Poole PA [facility] [place] [address] 06/10/2022 Office Visit Dermatology Laura Scherer MD [facility] ER [address] [place], [place] [address] (Wo rk) documented as of [...] (ABNORMAL) Prothrombin Time (11/29/2017 8:57 AM EDT) P athologist Signature PT 23.0 (H) 9.4 - 12.5 [place] [facility] LABORATORY INR 2.1 [facility] [...] City/State/[place] [address] (ABNORMAL) Basic Metabolic Panel (non-fasting) (11/29/2017 8:22 AM EDT) P athologist Signature Glucose Lvl 217 (H) 65 - 199 [facility] mg/dL [facility] Comment: Diabetes: >=200 mg/dL plus symp toms BUN 26 (H) 10 - 20 mg/dL [facility] Creatinine 0.96 0.80 - 1.50 mg/dL [facility] Sodium 137 135 - [...] [facility] Estimated GFR >60 >=60 [facility] Comment: The reported eGFR should be multiplied b y 1.2 for patients. The MDRD is not an appropriate measure o f renal function for patients with body mass extremes or in patients with acute kidney failure. http://[facility].eMarketer/DHnkdep http://[employer]/DHMCnkf Specimen Anatomical Collection Method Collection Time Receive d Time (Source) Location / / Volume Laterality Blood specimen 11/29/2017 8:22 AM 018 8:29 (specimen) EDT AM EDT Resulting Agency Comment Spec In Lab Danette Maxwell APRN CHEMISTRY ORDERABLES Performing Organization Address City/State/ZIP [place] [address] (ABNORMAL) pro-Brain Natriuretic Peptide (11/29/2017 8:22 AM EDT) P athologist Signature ProBNP 1,769 (H) <=125 [facility] pg/mL [facility] Specimen Anatomical Collection Method Collection Time Receive d Time (Source) Location / / Volume Laterality Blood specimen 11/29/2017 8:22 AM 018 8:29 (specimen) EDT AM EDT Resulting Agency Comment Spec In Lab Danette Maxwell APRN CHEMISTRY ORDERABLES Performing Organization Address City/State/ZIP Code Phon e Number [address] Lavender Tube HOLD (11/29/2017 8:14 AM EDT) Patholo gist Method Time Signature Lavender Hold Sample in [facility] lab. [facility] Specimen Anatomical Collection Method Collection Time Receive d Time (Source) Location / / Volume Laterality Blood specimen No Charge / 11/29/2017 8:14 AM 018 8:29 (specimen) Unknown EDT AM EDT Lovely Vicente MD HEMATOLOGY ORDERABLES Performing Organization Address City/State/ZIP [place] [address] documented in this encounter Visit Diagnoses Diagnosis Chronic systolic congestive heart failur e Chronic systolic heart failure ASCVD (arteriosclerotic cardiovascular d isease) Unspecified cardiovascular disease Cardiomyopathy, ischemic Other specified forms of chronic ischemi c heart disease documented in this encounter Care Teams Art Education Professor Relationship Specialty Start Date End Date Lovely Vicente MD PCP - General 04/16/[address] [place] [address] documented as of this encounter
--- OUTSIDE RECORDS SUMMARY | 2022-03-27 09:20 | XMS_ITS | Encounter Summary ---
:1945 [place] [address] Care Team Providers Name Role Phone Lovely Vicente MD Primary Care Provider Encounter Details Date Type Department Care Team Description 11/29/2017 Hospital Encounter Radiology Library at Estefany Maxwell Pain [facility] HEAD OF PARTNER DEVELOPMENT [facility] [place] [address] CARDIOLOGY [phone] [place], [place] [address] (Wo rk) Social History Tobacco [...] Zulma Dolan MD [facility] [place], [place] [address] (Wo rk) 05/28/2022 Laboratory Appointment Lab 05/28/2022 Office Visit Cardiology Zulma Dolan MD [facility] [place] [address] Liz Poole PA [facility] [place] [address] 06/10/2022 Office Visit Dermatology Laura Scherer MD [facility] [address]DER[address] OLOGY [place], [place] [address] (Wo rk) documented as [...] / Laterality Volume Narrative DH RAD - 12/28/2017 11:07 AM EDT This exam is for storage only and is aut o-finalizing. Danette Maxwell APRN IMG FILM LIBRARY ORDERABLES Performing Organization Address City/State/ZIP Code Phon e Number [place], [place] documented in this encounter Visit Diagnoses Diagnosis Pain Generalized pain documented in this encounter Care Teams Bias Binding Cutter Relationship Specialty Start Date End Date Lovely Vicente MD PCP - General 04/16/[address] [place] [address] documented as of this encounter
--- OUTSIDE RECORDS SUMMARY | 2022-03-27 09:20 | XMS_ITS | Encounter Summary ---
:1945 Author Organization [place] [address] Care Team Providers Name Role Phone Lovely Vicente MD Primary Care Provider Encounter Details Date Type Department Care Team Description 11/29/2017 Office Visit Cardiology at [facility] Annette Maxwell Chronic systolic congestive heart failure; [facility] A, BUSINESS PROPOSAL REP ASCVD (arteriosclerotic cardiovascular d isease); [facility] Cardiomyopathy, ischemic; [place], [place] PAD (peripheral artery disease) [phone] CARDIOLOGY [phone] [place], [place] [address] Social History Tobacco Use Types [...] in this encounter Progress Notes Annette Maxwell, BUSINESS PROPOSAL REP - 11/29/2017 9:20 AM EDT ID and [...] painful and swollen 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 [...] using left greater saphenous vein (done at [facility]), debridement of right foot with wound vac [...] x 80 10/25/2017: right popliteal-pedal bypass at [facility] ? Plan: 1. A review of [...] Cardiology Zulma Dolan MD [facility] [place], [place] [address] (Wo rk) 05/28/2022 Laboratory Appointment Lab 05/28/2022 Office Visit Cardiology Zulma Dolan MD [facility] [place] [address] Liz Poole PA [facility] [place] [address] 06/10/2022 Office Visit Dermatology Laura Scherer MD [facility] [address]DERMAT [place], [place] [address] (Wo rk) documented as of this encounter Results Arterial Duplex Leg, Unil (11/29/2017 10:32 AM EDT) Component Value Ref Test Analysis Performed At [facility] Range Method Time Signature VB Text Department: Vascular Surgery Lab VASCUBASE Report Patient: [id number] (GREGORY HOANG) CPT: 20584 ICD10: I72.4;I73.9 Referring Physician: ANNETTE MAXWELL ?? [...] Laterality 11/29/2017 10:32 AM EDT Annette Maxwell STACIE VASCULAR ORDERABLES Performing Organization Address City/State/ZIP Code Phon e Number [facility] (ABNORMAL) Basic Metabolic Panel (non-fasting) (11/29/2017 8:22 AM EDT) P athologist Signature Glucose Lvl 217 (H) 65 - 199 [facility] mg/dL [facility] Comment: Diabetes: >=200 mg/dL plus symp toms BUN 26 (H) 10 - 20 mg/dL [facility] Creatinine 0.96 0.80 - 1.50 mg/dL [facility] Sodium 137 135 - 145 [...] or in patients with acute kidney failure. http://Fuzmo.UNIFi Software/DHnkdep http://Heavy/DHMCnkf Specimen Anatomical Collection Method Collection Time Receive d Time (Source) Location / / Volume Laterality Blood specimen 11/29/2017 8:22 AM 05/07/2 018 8:29 (specimen) EDT AM EDT Resulting Agency Comment Spec In Lab Annette Maxwell BUSINESS PROPOSAL REP CHEMISTRY ORDERABLES Performing Organization Address City/State/[place] [address] (ABNORMAL) pro-Brain Natriuretic Peptide (11/29/2017 8:22 AM EDT) P athologist Signature ProBNP 1,769 (H) <=125 [facility] pg/mL [facility] Specimen Anatomical Collection Method Collection Time Receive d Time (Source) Location / / Volume Laterality Blood specimen 11/29/2017 8:22 AM 018 8:29 (specimen) EDT AM EDT Resulting Agency Comment Spec In Lab Annette Maxwell BUSINESS PROPOSAL REP CHEMISTRY ORDERABLES Performing Organization Address City/[facility]/[place] [address] documented in this encounter Visit Diagnoses Diagnosis Chronic systolic congestive heart failur e Chronic systolic heart failure ASCVD (arteriosclerotic cardiovascular d isease) Unspecified cardiovascular disease Cardiomyopathy, ischemic Other specified forms of chronic ischemi c heart disease PAD (peripheral artery disease) Peripheral vascular disease, unspecified documented in this encounter Care Teams Orchid Hand Relationship Specialty Start Date End Date Lovely Vicente MD PCP - General 04/16/[address] [place] [address] documented as of this encounter
--- OUTSIDE RECORDS SUMMARY | 2022-03-27 09:20 | XMS_ITS | Encounter Summary ---
:1945 Author Organization [facility] [place] [address] Care Team Providers Name Role Phone Lovely Vicente MD Primary Care Provider Encounter Details Date Type Department Care Team Description 08/15/2018 Office Visit Cardiology at [facility] Danette Maxwell Chronic systolic heart failu re; [facility] A, CUSTOMER SERVICE CONSULTANT Cardiomyopathy, ischemic; [facility] ASCVD (arteriosclerotic card iovascular disease); [place], [place] Essential hypertension; [phone] CARDIOLOGY MARIA VICTORIA on CPAP [phone] [place], [place] [address] Social History Tobacco Use Types [...] this encounter Progress Notes Danette Maxwell, CUSTOMER SERVICE CONSULTANT - 08/15/2018 9:00 AM EST Images from [...] is always better at therapy Call to [facility] PT Denies lightheadedness or dizziness Denies [...] K+ 4.6 today 6. Post-op atrial fibrillation [id number] (CHF, HTN, DM, vascular disease, thromboembolism) [...] MD [facility] [address] [place] [address] (Wo rk) 05/28/2022 Laboratory Appointment Lab 05/28/2022 Office Visit Cardiology Zulma Dolan MD [facility] [place] [address] Liz Poole PA [facility] [place] [address] 06/10/2022 Office Visit Dermatology Laura Scherer MD [facility] ER DR [address]DERMAT OLOGY [place], [place] [address] (Wo rk) documented as of this encounter Results Lipid Panel (08/15/2018 8:04 AM EST) athologist Signature Chol, Total 75 mg/dL [facility] Comment: Lower Risk: <200 mg/dL Average Risk: 200-239 mg/dL Higher Risk: >od=078 mg/dL Triglycerides 185 mg/dL [facility] Comment: Average Risk/Lower Risk: <150 mg/dL Borderline High Risk: 150-199 mg/dL High Risk: 200-499 mg/dL Very High Risk: >ns=936 mg/dL HDL 32 mg/dL [facility] Comment: Males: ?? Higher Risk: <40 mg/dL Females: ?? HIgher Risk: <50 mg/dL LDL Cholesterol 6 mg/dL [facility] Comment: Lowest Risk: <100 mg/dL Lower Risk: 100-129 mg/dL Borderline High Risk: 130-159 mg/dL High Risk: 160-189 mg/dL Very High Risk: >xu=652 mg/dL Chol/HDL Ratio 2.3 ratio [facility] Lipid Interpretation See Note [facility] Comment: Lipid management should be guided by a p atient? s ASCVD risk, goals and preferences. ACC/AHA Guidelines recommend high intens ity statin if clinical ASCVD or LDL greater than or equal to 190 mg/dL. http://Simtrolurl.com/LYC-TUN-Bmhugwaru Adults aged 40-75 with LDL 70-189 mg/dL should have their 10 year ASCVD risk estimated with the ACC/AHA ASCVD risk es timator http://tools.acc.org/AFQRK-Rgye-Wtoywfmq r/ Statin should be discussed if risk [...] City/State/[place] [address] (ABNORMAL) Basic Metabolic Panel (non-fasting) (08/15/2018 8:04 AM EST) P athologist Signature Glucose Lvl 116 65 - 199 [facility] mg/dL [facility] Comment: Diabetes: [...] of body mass or the acutely ill. http://[facility]nkf eGFR 79 >=60 mL/min/1.73 m?? [facility] Comment: The eGFR was calculated using the CKD-EP I equation. As with all creatinine based estimates of kidney function, eGFR values calculated with the CKD-EPI equation are not accurate in patients wi th acute kidney failure, extremes of body mass or the acutely ill. http://[facility]nkf Specimen Anatomical Collection Method Collection Time Receive d Time (Source) Location / / Volume Laterality Blood specimen 08/15/2018 8:04 AM 019 8:20 (specimen) EST AM EST Resulting Agency Comment Spec In Lab Danette Maxwell APRN CHEMISTRY ORDERABLES Performing Organization Address City/State/ZIP Code Phon e Number [address] (ABNORMAL) pro-Brain Natriuretic Peptide (08/15/2018 8:04 AM EST) P athologist Signature ProBNP 1,797 (H) <=125 [facility] pg/mL [facility] Specimen Anatomical Collection Method Collection Time Receive d Time (Source) Location / / Volume Laterality Blood specimen 08/15/2018 8:04 AM 019 8:20 (specimen) EST AM EST Resulting Agency Comment Spec In Lab Danette Maxwell APRN CHEMISTRY ORDERABLES Performing Organization Address City/State/[place] [address] documented in this encounter Visit Diagnoses Diagnosis Chronic systolic heart failure Cardiomyopathy, ischemic Other specified forms of chronic ischemi c heart disease ASCVD (arteriosclerotic cardiovascular d isease) Unspecified cardiovascular disease Essential hypertension Unspecified essential hypertension MARIA VICTORIA on CPAP Obstructive sleep apnea (adult) (pediatr ic) documented in this encounter Care Teams Elevator Attendant Relationship Specialty Start Date End Date Lovely Vicente MD PCP - General 04/16/[address] [place] [address] documented as of this encounter
--- OUTSIDE RECORDS SUMMARY | 2022-03-27 09:20 | XMS_ITS | Encounter Summary ---
:1945 Author Organization [facility] [place] [address] Care Team Providers Name Role Phone Lovely Vicente MD Primary Care Provider Encounter Details Date Type Department Care Team Description 10/05/2017 Telephone Cardiology at [facility] Tamiko Sin MD [facility] [place] [address] CARDIOLOGY DEPT [phone] [place], [place] [address] (Wo rk) Social History Tobacco [...] Zulma Dolan MD [facility] er [address] [place] [address] (Wo rk) 05/28/2022 Laboratory Appointment Lab 05/28/2022 Office Visit Cardiology Zulma Dolan MD [facility] [place] [address] [facility] [place] [address] 06/10/2022 Office Visit Dermatology Laura Scherer MD [facility] ER DR [address] [place], [place] [address] (Wo rk) documented as of this encounter Visit Diagnoses Not on filedocumented in this encounter Care Teams Transmission Engineer Relationship Specialty Start Date End Date Lovely Vicente MD PCP - General 04/16/[address] [place] [address] documented as of this encounter
--- OUTSIDE RECORDS SUMMARY | 2022-03-27 09:20 | XMS_ITS | Encounter Summary ---
:1945 Author Organization [facility] [place] [address] Care Team Providers Name Role Phone Lovely Vicente MD Primary Care Provider Encounter Details Date Type Department Care Team Description 10/07/2017 Laboratory Appointment Lab 3L [facility] [place] [phone] Social History Tobacco Use Types Packs/Day Years [...] Description 05/28/2022 Appointment Cardiology Zulma Dolan MD [facility] [place], [place] [address] (Wo rk) 05/28/2022 Laboratory Appointment Lab 05/28/2022 Office Visit Cardiology Zulma Dolan MD [facility] [place] [address] [facility] [place] [address] 06/10/2022 Office Visit Dermatology Laura Scherer MD [facility] ER DR [address]DERMAT [facility] [place] Amy (Wo rk) documented as of this encounter [...] - 199 [facility] mg/dL [facility] Comment: Diabetes: >=200 mg/dL plus [...] or in patients with acute kidney failure. http://GIGA TRONICS.1spire/DHnkdep http://GIGA TRONICS.1spire/DHMCnkf Specimen Anatomical Collection Method Collection Time Receive d Time (Source) Location / / Volume Laterality Blood specimen 10/07/2017 8:48 AM 018 8:50 (specimen) EDT AM EDT Resulting Agency Comment Spec In Lab Danette Maxwell CONTRACT AGENT CHEMISTRY ORDERABLES Performing Organization Address City/[facility]/ZIP Code Phon e Number [address] (ABNORMAL) pro-Brain Natriuretic Peptide (10/07/2017 8:48 AM EDT) athologist Signature ProBNP 1,170 (H) <=125 [facility] pg/mL [facility] Specimen Anatomical Collection Method Collection Time Receive d Time (Source) Location / / Volume Laterality Blood specimen 10/07/2017 8:48 AM 018 8:50 (specimen) EDT AM EDT Resulting Agency Comment Spec In Lab Danette A Hans QUINONES CHEMISTRY ORDERABLES Performing Organization Address City/State/[place] [address] documented in this encounter Visit Diagnoses Diagnosis Chronic systolic heart failure documented in this encounter Care Teams Fuel Technician Relationship Specialty Start Date End Date Lovely Vicente MD PCP - General 04/16/15 [address] [place] [address] documented as of this encounter
--- OUTSIDE RECORDS SUMMARY | 2022-03-27 09:20 | XMS_ITS | Encounter Summary ---
:1945 Author Organization [facility] [place] [address] Care Team Providers Name Role Phone Lovely Vicente MD Primary Care Provider Encounter Details Date Type Department Care Team Description 01/16/2019 Laboratory Appointment Lab 3L [facility] [place] [phone] Social History Tobacco Use Types Packs/Day Years [...] 05/28/2022 Appointment Cardiology Zulma Dolan MD [facility] er [place], [place] [address] (Wo rk) 05/28/2022 Laboratory Appointment Lab 05/28/2022 Office Visit Cardiology Zulma Dolan MD [facility] [place] [address] Liz Poole PA [facility] [place] [address] 06/10/2022 Office Visit Dermatology Laura Scherer MD [facility] ER [address]DERMAT [place], [place] [address] (Wo rk) documented as [...] Organization Address City/State/[place] [address] (ABNORMAL) Basic Metabolic Panel (non-fasting) (01/16/2019 7:49 AM EDT) athologist Signature Glucose Lvl 105 65 - 199 [facility] mg/dL [facility] Comment: Diabetes: >=200 mg/dL plus symp toms BUN 25 (H) 10 - 20 mg/dL [facility] Creatinine 1.08 0.80 - 1.50 mg/dL [facility] Sodium 145 135 - [...] of body mass or the acutely ill. http://DineGasm/Pacejet Logisticsnkf eGFR 79 >=60 mL/min/1.73 m?? [facility] Comment: The eGFR was calculated using the CKD-EP I equation. As with all creatinine based estimates of kidney function, eGFR values calculated with the CKD-EPI equation are not accurate in patients wi th acute kidney failure, extremes of body mass or the acutely ill. http://DineGasm/Pacejet Logisticsnkf Specimen Anatomical Collection Method Collection Time Receive d Time (Source) Location / / Volume Laterality Blood specimen 01/16/2019 7:49 AM 019 7:55 (specimen) EDT AM EDT Resulting Agency Comment Spec In Lab Danette Maxwell APRN CHEMISTRY ORDERABLES Performing Organization Address City/State/Z[place] [address] documented in this encounter Visit Diagnoses Diagnosis Chronic systolic heart failure documented in this encounter Care Teams Technical Services Manager Relationship Specialty Start Date End Date Lovely Vicente MD PCP - General 04/16/[address] [place] [address] documented as of this encounter
--- OUTSIDE RECORDS SUMMARY | 2022-03-27 09:20 | XMS_ITS | Encounter Summary ---
:1945 Author Organization [facility] [place] [address] Care Team Providers Name Role Phone Lovely Vicente MD Primary Care Provider Encounter Details Date Type Department Care Team Description 09/16/2017 Hospital [place] [address] Social History Tobacco Use Types Packs/Day [...] Description 05/28/2022 Appointment Cardiology Zulma Dolan MD [facility] [place], [place] [address] (Wo rk) 05/28/2022 Laboratory Appointment Lab 05/28/2022 Office Visit Cardiology Zulma Dolan MD [facility] [place] [address] Liz Poole PA [facility] [place] [address] 06/10/2022 Office Visit Dermatology Laura Scherer MD [facility] [address] OLOG[place], [place] [address] (Wo rk) documented as of this encounter Procedures Procedure Name Priority Date/Time Associated Diagnosis Comme [facility] SURGICAL PATHOLOGY Routine 09/16/2017 7:28 AM Res ults for this REPORT EST procedure are i n the results section. documented in this encounter Results Surgical Pathology Report (09/16/2017 7:28 AM EST) Component Value Ref Test Analysis Performed At [facility] Method Time Signature Surgical [id number] ? Location: [facility] Pathology ZAVALLA Report The signing pathologist has (i) examined [...] Henrique Flower Verified: ??09/24/2017 ?Pathologist Performed at: ??-[facility] Dept. of [place]ology, [place], [place] CLINICAL INFORMATION Specimen Submitted: A - [...] Organization Address City/State/[place] [address] documented in this encounter Visit Diagnoses Not on filedocumented in this encounter Care Teams Reporting Coordinator Relationship Specialty Start Date End Date Lovely Vicente MD PCP - General 04/16/[address] [place] [address] documented as of this encounter
--- OUTSIDE RECORDS SUMMARY | 2022-03-27 09:20 | XMS_ITS | Encounter Summary ---
:1945 Author Organization [place] [address] Care Team Providers Name Role Phone Lovely Vicente MD Primary Care Provider Encounter Details Date Type Department Care Team Description 09/06/2017 Orders Only Vascular Surgery at [facility] Ninfa Clark, [facility] [place] [address] Social History Tobacco Use Types Packs/Day [...] MD [facility] er [place], [place] [address] (Wo rk) 05/28/2022 Laboratory Appointment Lab 05/28/2022 Office Visit Cardiology Zulma Dolan MD [facility] [place] [address] Liz Poole PA [facility] [place] [address] 06/10/2022 Office Visit Dermatology Laura Scherer MD [facility] [address]MAT [place], [place] [address] (Wo rk) documented as of this encounter Visit Diagnoses Not on filedocumented in this encounter Care Teams Industrial Maintenance Millwright Relationship Specialty Start Date End Date Lovely Vicente MD PCP - General 04/16/[address] [place] [address] documented as of this encounter
--- OUTSIDE RECORDS SUMMARY | 2022-03-27 09:20 | XMS_ITS | Encounter Summary ---
:1945 Author Organization [facility] [place] [address] Care Team Providers Name Role Phone Lovely Vicente MD Primary Care Provider Reason for Referral Diagnostic Test (Routine) - Closed Specialty Diagnoses / Procedures Referred By Contact Refer red To Contact Cardiology Diagnoses Chronic systolic heart failure Danette Maxwell APRN [facility] Non-Inv Card Lab Procedures Echocardiogram Transthoracic(Leb) [facility] [place] [address] [place] [address] Referral ID Status Reason Start Date Expiration Date Visits V isits Requested Authorized [id number] Closed Specialty 07/17/2019 09/14/2019 1 1 Service Requested Reason for Visit Diagnostic Test (Routine) - Closed Specialty Diagnoses / Procedures Referred By Contact Refer red To Contact Cardiology Diagnoses Chronic systolic heart failure Danette Maxwell APRN [facility] Non-Inv Card Lab Procedures Echocardiogram Transthoracic(Leb) [facility] [place] [address] [place] [address] Referral ID Status Reason Start Date Expiration Date Visits V isits Requested Authorized [id number] Closed Specialty 07/17/2019 09/14/2019 1 1 Service Requested Encounter Details Date Type Department Care Team Description 07/28/2019 Hospital Encounter Non-Invasive Chronic s ystolic heart [place] [address] Social History Tobacco Use Types Packs/Day [...] Description 05/28/2022 Appointment Cardiology Zulma Dolan MD [facility] [address] [place], [place] [address] (Wo rk) 05/28/2022 Laboratory Appointment Lab 05/28/2022 Office Visit Cardiology Zulma Dolan MD [facility] [place] [address] Liz Poole PA [facility] [place] [address] 06/10/2022 Office Visit Dermatology Laura Scherer MD [facility] DR TE[address] GR[address]DERMAT [place], [place] [address] (Wo rk) documented as of this encounter Procedures Procedure Name Priority Date/Time Associated Comments Diagnosis ECHOCARDIOGRAM COMPLETE Routine 07/28/2019 8:19 AM Chronic sys tolic Results for this W CONTRAST EST heart failure procedure are in the results section. documented in this encounter Results ECHOCARDIOGRAM COMPLETE W CONTRAST (07/28/2019 8:19 AM EST) P athologist Signature EF 40 HEARTLAB SYSTEM Anatomical Region Laterality Modality Other Specimen (Source) Anatomical Location Collection Method / Collectio n Time Received Time / Laterality Volume 07/28/2019 Narrative 07/28/2019 8:38 AM EST Procedure: ?Transthoracic Echocardiogram Patient: ?NATALYA Mccollum ? (Age): 1945(74y) Med Rec#: ? [id number] ?Sex: ?M ? Site Loc: ? [facility] ?Ht / Wt: ??172(cm)/81(kg) Pt. Loc: ?Echo Lab ?BSA: ?1.94 Study Date: ?? 07/28/2019 ?Pt. Type: Outpatient Tape: ? Referring: MARY ELLEN Reading: Ifeanyi Truong ([id number]) Distresser: Fadumo Flanagan RDCS, FASE Diagnosis: *Chronic systolic [...] ?The ascending aorta is normal in s azael. Pulmonary Artery: ? The main pulmona ry [...] E-wave Vmax ?1 ?m/sec ? MV deceleration banf292.5 ? msec ? MV A-wave Vmax ?1 [...] ? Pulmonic Valve/Qp:Qs ?Value ?Units (Range) ? DC end-diastolic Vma1.1 ?m/sec ? Wall Motion: Segment Name ?Rest ? Base-Anteroseptal ?? Normal ? Base-Anterior ? Normal ? Base-Anterolateral ??Normal ? Base-Posterolateral Normal ? Base-Inferior ? Akinetic ? Base-Inferoseptal ?? Normal ? Mid-Anteroseptal ?Normal ? Mid-Anterior ?Hypokinetic ? Mid-Anterolateral ?? Normal ? Mid-Posterolateral ??Normal ? Mid-Inferior ?Hypokinetic ? Mid-Inferoseptal ?Normal ? [place]-Septal ? Normal ? [place]-Anterior ? Hypokinetic ? [place]-Lateral ?Normal ? [place]-Inferior ? Akinetic ? [place]-Tip ?Hypokinetic ? This report has been electronically sign ed by: _ Ifeanyi Truong M.D. ? 07/28/2019 0 8:38:01 Images reviewed and interpretation verif ied [facility] Cardiac Ultrasound Laboratory Procedure Note Ifeanyi Truong MD - 07/28/2019Formatt ing of this note might be different from the original. Procedure: Transthoracic Echocardiogram Patient: NATALYA MCBRIDE(Age): [birth year]74y) Med Rec#: [id number] Sex: M Site Loc: [facility] Ht / Wt: 172(cm)/81(kg) Pt. Loc: Echo Lab BSA: 1.94 Study Date: 07/28/2019 Pt. Type: Outpati ent Tape: Referring: MARY ELLEN Reading: Ifeanyi Truong ([id number]) Distresser: Fadumo Flanagan N[facility], [facility] Diagnosis: *Chronic systolic (congestive) heart fa ilure [...] MV E-wave Vmax 1 m/sec MV deceleration hupt565.5 msec MV A-wave Vmax 1 m/sec MV [...] 0.7 ratio Pulmonic Valve/Qp:Qs Value Units (Range) DC end-diastolic Vma1.1 m/sec Wall Motion: Segment Name Rest Base-Anteroseptal Normal Base-Anterior Normal Base-Anterolateral Normal Base-Posterolateral Normal Base-Inferior Akinetic Base-Inferoseptal Normal Mid-Anteroseptal Normal Mid-Anterior Hypokinetic Mid-Anterolateral Normal Mid-Posterolateral Normal Mid-Inferior Hypokinetic Mid-Inferoseptal Normal [place]-Septal Normal [place]-Anterior Hypokinetic [place]-Lateral Normal [place]-Inferior Akinetic [place]-Tip Hypokinetic This report has been electronically sign ed by: _ Ifeanyi Truong M.D. 07/28/2019 08:38:0 1 Images reviewed and interpretation elvie hwang [facility] Cardiac Ultrasound Laboratory Danette A Hans QUINONES ECHO ORDERABLES documented in this encounter Visit [...] documented in this encounter Care Teams Director Inbound Sales Relationship Specialty Start Date End Date Lovely Vicente MD PCP - General 04/16/[address] [place] [address] documented as of this encounter
--- OUTSIDE RECORDS SUMMARY | 2022-03-27 09:21 | XMS_ITS | Encounter Summary ---
:1945 Author Organization [facility] [address] Care Team Providers Name Role Phone Lovely Vicente MD Primary Care Provider Reason for Visit Reason Onset Date Comments VNA Calls 08/30/2017 Encounter Details Date Type Department Care Team Description 08/30/2017 Telephone Vascular Surgery at [facility] Cora Reid RN VNA Calls [facility] [place] [address] Social History Tobacco Use Types Packs/Day [...] Caller: Alfonso at [facility] [phone] Reason for call: Changing his wound vac [...] Zulma Dolan MD [facility] [address] [place], [place] [address] (Wo rk) 05/28/2022 Laboratory Appointment Lab 05/28/2022 Office Visit Cardiology Zulma Dolan MD [facility] [place] [address] [facility] [place] [address] 06/10/2022 Office Visit Dermatology Laura Scherer MD [facility] DR TEJA GR-DERMAT OGY [place], [place] [address] (Wo rk) documented as of this encounter Visit Diagnoses Not on filedocumented in this encounter Care Teams Seasonal Warehouse Associate Relationship Specialty Start Date End Date Lovely Vicente MD PCP - General 04/16/[address] [place] [address] documented as of this encounter
--- OUTSIDE RECORDS SUMMARY | 2022-03-27 09:21 | XMS_ITS | Encounter Summary ---
:1945 Author Organization [facility] [place] [address] Care Team Providers Name Role Phone Lovely Vicente MD Primary Care Provider Reason for Visit Reason Comments Follow-up I'm having trouble with the VAC Encounter Details Date Type Department Care Team Description 08/26/2017 Office Visit Vascular Surgery at [facility], STEPHANIE Mercado Atheroembolism of foot, right; [facility] [address] Delayed surgical wound healing, initial encounter; [facility] VASCULAR SURG YEHUDA Acute on chronic systolic congestive hea rt failure ; [place], [place]schem[place] [address] [phone] Social History Tobacco Use Types Packs/Day Years [...] home and into the care of the [facility]. However, since discharge from [facility] he has had some difficulty with continuation [...] Dolan MD [facility] [place], [place] [address] (Wo rk) 05/28/2022 Laboratory Appointment Lab 05/28/2022 Office Visit Cardiology Zulma Dolan MD [facility] [place] [address] Liz Poole PA [facility] [place] [address] 06/10/2022 Office Visit Dermatology Laura Scherer MD [facility] [address]DERMAT OGY [place], [place] [address] (Wo rk) documented as [...] Department: Vascular Surgery Lab VASCUBASE Report Patient: [id number] (GREGORY FATIMA) CPT: 15019 ICD10: T81.89XA;I75.021 Referring Physician: ARKI CLEMENT ?? Indications: S/P right 1st, 2nd, [...] Signature Glucose Lvl 98 65 - 199 [facility] mg/dL [facility] Comment: Diabetes: >=200 mg/dL plus symp toms BUN 20 10 - 20 mg/dL [facility] Creatinine 1.17 0.80 - 1.50 mg/dL [facility] [...] or in patients with acute kidney failure. http://[facility]/DHnkdep http://[facility]/DHMCnkf Specimen Anatomical Collection Method Collection Time Receive d Time (Source) Location / / Volume Laterality Blood specimen 08/26/2017 2:00 PM 018 2:15 (specimen) EST PM EST Resulting Agency Comment Spec In Lab Danette Maxwell FERMENTATION OPERATOR CHEMISTRY ORDERABLES Performing Organization Address City/[facility] [address]/ZIP Code Phon e Number [address] (ABNORMAL) pro-Brain Natriuretic Peptide (08/26/2017 2:00 PM EST) P athologist Signature ProBNP 2,373 (H) <=125 [facility] pg/mL [facility] Specimen Anatomical Collection Method Collection Time Receive d Time (Source) Location / / Volume Laterality Blood specimen 08/26/2017 2:00 PM 018 2:15 (specimen) EST PM EST Resulting Agency Comment Spec In Lab Danette A [place] STACIE CHEMISTRY ORDERABLES Performing Organization Address City/[facility] [address]/[facility] [place] [address] documented in this encounter Visit Diagnoses Diagnosis Atheroembolism of foot, right Delayed surgical wound healing, initial encounter Acute on chronic systolic congestive hea rt failure Acute on chronic systolic heart failure Ischemic cardiomyopathy Other specified forms of chronic ischemi c heart disease documented in this encounter Care Teams Wheel Setter Relationship Specialty Start Date End Date Lovely Vicente MD PCP - General 04/16/[address] [place] [address] documented as of this encounter
--- OUTSIDE RECORDS SUMMARY | 2022-03-27 09:21 | XMS_ITS | Encounter Summary ---
:1945 Author Organization [facility] [place] [address] Care Team Providers Name Role Phone Lovely Vicente MD Primary Care Provider Encounter Details Date Type Department Care Team Description 08/19/2017 Office Visit Vascular Surgery at [place], PAD (peripheral artery [facility] FACILITIES LOCATOR disease) [facility] [address] [place], [place] VASCULAR SURGERY [address] [place] [address] [phone] Social History Tobacco Use Types Packs/Day Years [...] Description 05/28/2022 Appointment Cardiology Zulma Dolan MD [facility] [place], [place] [address] (Wo rk) 05/28/2022 Laboratory Appointment Lab 05/28/2022 Office Visit Cardiology Zulma Dolan MD [facility] [place] [address] Liz Poole PA [facility] [place] [place] [address] 06/10/2022 Office Visit Dermatology Laura Scherer MD [facility] DR [address]DERMAT [place], [place] [address] (Wo rk) documented as of this encounter Visit Diagnoses Diagnosis PAD (peripheral artery disease) Peripheral vascular disease, unspecified documented in this encounter Care Teams Target Aircraft Technician Relationship Specialty Start Date End Date Lovely Vicente MD PCP - General 04/16/[address] [place] [address] documented as of this encounter
--- OUTSIDE RECORDS SUMMARY | 2022-03-27 09:21 | XMS_ITS | Encounter Summary ---
:1945 Author Organization [facility] [place] [address] Care Team Providers Name Role Phone Lovely Vicente MD Primary Care Provider Reason for Referral Diagnostic Test (Routine) - Closed Specialty Diagnoses / Procedures Referred By Contact Refer red To Contact Cardiology Diagnoses Ischemic cardiomyopathy Acute on chronic systolic congestive heart failure Danette Maxwell APRN [facility] Non-Inv Card Lab Procedures Echocardiogram Transthoracic(Leb) [facility] [place] [address] [place] [address] Referral ID Status Reason Start Date Expiration Date Visits V isits Requested Authorized [id number] Closed Specialty 08/30/2017 08/30/2018 1 1 Service Requested Encounter Details Date Type Department Care Team Description 08/26/2017 Office Visit Cardiology at [facility] Danette Maxwell Ischemic cardiomyopathy; [facility] STACIE Gomes Acute on chronic systolic congestive hea rt failure ; Drive [facility] ASCVD (arteriosclerotic card iovascular disease); [place], [place] PAF (paroxysmal atrial fibrillation); [address] CARDIOLOGY PAD (peripheral artery disease) [phone] [place], [place] [address] Social History Tobacco Use Types Packs/Day Years [...] painful and swollen right foot 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 [...] Zulma Dolan MD [facility] [place], [place] [address] (Wo rk) 05/28/2022 Laboratory Appointment Lab 05/28/2022 Office Visit Cardiology Zulma Dolan MD [facility] [place] [address] Liz Poole PA [facility] [place] [address] 06/10/2022 Office Visit Dermatology Laura Scherer MD [facility] DR [address] GR[address]DERMAT OLOG[place], [place] [address] (Wo rk) documented as of this encounter Results ECHOCARDIOGRAM COMPLETE W CONTRAST (10/07/2017 10:23 AM EDT) athologist Signature EF 45 HEARTLAB SYSTEM Anatomical Region Laterality Modality Other Specimen (Source) Anatomical Location Collection Method / Collectio n Time Received Time / Laterality Volume 10/07/2017 Narrative 10/07/2017 11:13 AM EDT Procedure: ?Transthoracic Echocardiogram Patient: ?NATALYA Mccollum ? (Age): 1945(72y) Med Rec#: ? [id number] ?Sex: ?M ? Site Loc: ? [facility] ?Ht / Wt: ??173(cm)/82(kg) Pt. Loc: ?Echo Lab ?BSA: ?1.96 Study Date: ?? 10/07/2017 ?Pt. Type: Outpatient Tape: ? Referring: Danette Maxwell Reading: Iker Cuevas ([id number]) Associate Media Planner: Yonathan Bocanegra Diagnosis: *ICD-10-PCS Ischemic cardiomyopathy (I2 [...] E-wave Vmax ?1.2 ?m/sec ? MV deceleration [id number] ?msec ? MV A-wave Vmax ?1 ?m/sec [...] ? Mid-Inferior ?Hypokinetic ? Mid-Inferoseptal ?Hypokinetic ? [place]-Septal ? Akinetic ? [place]-Anterior ? Hypokinetic ? [place]-Lateral ?Hypokinetic ? [place]-Inferior ? Hypokinetic ? [place]-Tip ?Akinetic ? This report has been electronically sign ed by: _ Iker Cuevas M.D. ? 10/07/2017 11:12:34 Images reviewed and interpretation [facility] Cardiac Ultrasound Laboratory Procedure Note Iker Cuevas MD - 10/07/2017Formatti ng of this note might be different from the original. Procedure: Transthoracic Echocardiogram Patient: NATALYA Mccollum (Age): [birth year]72y) Med Rec#: [id number] Sex: M Site Loc: [facility] Ht / Wt: 173(cm)/82(kg) Pt. Loc: Echo Lab BSA: 1.96 Study Date: 10/07/2017 Pt. Type: Outpati ent Tape: Referring: Danette Maxwell Reading: Iker Cuevas ([id number]) Associate Media Planner: Yonathan Bocanegra Diagnosis: *ICD-10-PCS Ischemic cardiomyopathy (I2 [...] MV E-wave Vmax 1.2 m/sec MV deceleration [id number] msec MV A-wave Vmax 1 m/sec MV [...] Akinetic Mid-Posterolateral Hypokinetic Mid-Inferior Hypokinetic Mid-Inferoseptal Hypokinetic [place]-Septal Akinetic [place]-Anterior Hypokinetic [place]-Lateral Hypokinetic [place]-Inferior Hypokinetic [place]-Tip Akinetic This report has been electronically sign ed by: _ Iker Cuevas M.D. 10/07/2017 11:12 :34 Images reviewed and interpretation [facility] Cardiac Ultrasound Laboratory Danette Maxwell APRN ECHO ORDERABLES Basic Metabolic Panel (non-fasting) (08/26/2017 2:00 PM EST) P athologist Signature Glucose Lvl 98 65 - 199 [facility] mg/dL [facility]ORAT[facility] Comment: [...] [facility] Estimated GFR >60 >=60 [facility] Comment: The reported eGFR should be multiplied b y 1.2 for patients. The MDRD is not an appropriate measure o f renal function for patients with body mass extremes or in patients with acute kidney failure. http://[employer]/DHnkdep http://[employer]/DHMCnkf Specimen Anatomical Collection Method Collection Time Receive d Time (Source) Location / / Volume Laterality Blood specimen 08/26/2017 2:00 PM 018 2:15 (specimen) EST PM EST Resulting Agency Comment Spec In Lab Danette Maxwell APRN CHEMISTRY ORDERABLES Performing Organization Address City/State/ZIP Code Phon e Number [address] (ABNORMAL) pro-Brain Natriuretic Peptide (08/26/2017 2:00 PM EST) P athologist Signature ProBNP 2,373 (H) <=125 [facility] pg/mL [facility] LABORAT[facility] Specimen Anatomical Collection Method Collection Time Receive d Time (Source) Location / / Volume Laterality Blood specimen 08/26/2017 2:00 PM 018 2:15 (specimen) EST PM EST Resulting Agency Comment Spec In Lab Danette Maxwell APRN CHEMISTRY ORDERABLES Performing Organization Address City/State/[place] [address] documented in this encounter [...] failure documented in this encounter Care Teams Soiled Linen Distributor Relationship Specialty Start Date End Date Lovely Vicente MD PCP - General 04/16/15 [address] [place] [address] documented as of this encounter
--- OUTSIDE RECORDS SUMMARY | 2022-03-27 09:21 | XMS_ITS | Encounter Summary ---
:1945 Author Organization [facility] [place] [address] Care Team Providers Name Role Phone Lovely Vicente MD Primary Care Provider Encounter Details Date Type Department Care Team Description 08/26/2017 Hospital Encounter Vascular Lab at [facility], Athero embolism of foot, right; [place], [place] Delayed surgi nusrat wound healing, [place] [phone] Social History Tobacco Use Types Packs/Day Years [...] [facility] [address] [place], [place] [address] (Wo rk) 05/28/2022 Laboratory Appointment Lab 05/28/2022 Office Visit Cardiology Zulma Dolan MD [facility] [place] [address] Liz Poole PA [facility] [place] [address] 06/10/2022 Office Visit Dermatology Laura Scherer MD [facility] [address] GR-DERMAT OLOGY [place], [place] [address] (Wo rk) documented as of [...] [facility] Range Method Time Signature VB Text Department: Vascular Surgery Lab VASCUBASE Report Patient: [id number] (DON HOANG) CPT: 87678 ICD10: T81.89XA;I75.021 Referring Physician: ELVER BLOOM ?? [...] encounter documented in this encounter Care Teams Service Member Relationship Specialty Start Date End Date Lovely Vicente MD PCP - General 04/16/[address] [place] [address] documented as of this encounter
--- OUTSIDE RECORDS SUMMARY | 2022-03-27 09:21 | XMS_ITS | Encounter Summary ---
:1945 Author Organization [facility] [place] [address] Care Team Providers Name Role Phone Lovely Vicente MD Primary Care Provider Reason for Visit Reason Comments Follow-up Encounter Details Date Type Department Care Team Description 08/19/2017 Office Visit Cardiac Surgery at [facility], Jock S/P C ABG (coronary [facility], artery bypass graft) [facility] [place] [address] SURGERY [phone] [place], [place] [address] Social History Tobacco Use Types [...] office. Best personal regards, Yuan [facility] MD [phone] documented in this encounter Plan of Treatment Upcoming Encounters Date Type Specialty Care Team Description 05/28/2022 Appointment Cardiology Zulma Dolan MD [facility] er [address] [place] [address] (Wo rk) 05/28/2022 Laboratory Appointment Lab 05/28/2022 Office Visit Cardiology Zulma Dolan MD [facility] [place] [address] Liz Poole PA [facility] [place] [address] 06/10/2022 Office Visit Dermatology Laura Scherer MD [facility] ER DR [address] [place] [address] (Wo rk) documented as of this encounter [...] 454 ms MUSE SYSTEM (Bezet) Calculated P [place] 20 degrees MUSE SYSTEM Calculated R [place] -29 degrees MUSE SYSTEM Calculated T [place] 121 degrees MUSE SYSTEM INTERPRETATION Normal sinus rhythm MUSE SYSTEM Inferior infarct (cited on or before 25-JAN-2013) Anterior 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) T wave abnormality, consider lateral ischemia Abnormal ECG When compared with ECG of 06-AUG-2017 12:37, No signif icant change was found Confirmed by MD Luci, Taurus Braun ([id number]) on 08/19/2017 1 0:37:38 PM Specimen Anatomical [...] status documented in this encounter Care Teams Conveyor Tender Concrete Mixing Plant Relationship Specialty Start Date End Date Lovely Vicente MD PCP - General 04/16/[address] [place] [address] documented as of this encounter
--- OUTSIDE RECORDS SUMMARY | 2022-03-27 09:21 | XMS_ITS | Encounter Summary ---
:1945 Author Organization [facility] [place] [address] Care Team Providers Name Role Phone Lovely Vicente MD Primary Care Provider Encounter Details Date Type Department Care Team Description 08/25/2017 Telephone Pain Management at [place], [place] [address] Social History Tobacco Use Types Packs/Day [...] Management Center Preauthorization Request Patient: Don Fatima [id number] Fax received from [employer] denying prior authorization for Lidocaine Patches prescribed by Barbra Soares APRN. RX insurance plan: [employer] insurance telephone: [phone] Patient Diagnosis: right foot pain secondary to PVD and ischemia ? Previous medications attempted: Tylenol, Tramadol, Dilaudid Authorization/Reference number: [id number] _x_ denied, provider and patient informed _x_ appeal initiated by provider, patient informed [place] Rodrigez, RN documented in this encounter Plan of Treatment Upcoming Encounters Date Type Specialty Care Team Description 05/28/2022 Appointment Cardiology Zulma Dolan MD [facility] [place], [place] [address] (Wo rk) 05/28/2022 Laboratory Appointment Lab 05/28/2022 Office Visit Cardiology Zulma Dolan MD [facility] [place] [address] Liz Poole PA [facility] [place] [address] 06/10/2022 Office Visit Dermatology Laura Scherer MD [facility] [address]-DERMAT [place], [place] [address] (Wo rk) documented as of this encounter Visit Diagnoses Not on filedocumented in this encounter Care Teams Lastex Operator Relationship Specialty Start Date End Date Lovely Vicente MD PCP - General 04/16/[address] [place] [address] documented as of this encounter
--- OUTSIDE RECORDS SUMMARY | 2022-03-27 09:21 | XMS_ITS | Encounter Summary ---
:1945 Author Organization [facility] [place] [address] Care Team Providers Name Role Phone Lovely Vicente MD Primary Care Provider Encounter Details Date Type Department Care Team Description 08/19/2017 Hospital Encounter XRay at [facility] Martha Teague, S/P CABG x [address] [place] [address] [place] [address] RD [phone] GENER[facility] [place], [place] [address] (Wo rk) Social History [...] Cardiology Zulma Dolan MD [facility] [place], [place] [address] (Wo rk) 05/28/2022 Laboratory Appointment Lab 05/28/2022 Office Visit Cardiology uZlma Dolan MD [facility] [place] [address] Liz Poole PA [facility] [place] [address] 06/10/2022 Office Visit Dermatology Laura Scherer MD [facility] [address] [place], [place] [address] (Wo rk) documented as of [...] 2017 EXAMINATION: XR CHEST PA AND LATERAL (eBooxIC) CLINICAL HISTORY: CABG x 3 TECHNIQUE: PA [...] status documented in this encounter Care Teams Ledger Poster Relationship Specialty Start Date End Date Lovely Vicente MD PCP - General 04/16/[address] [place], [place] [id number] [facility] [address] [place] [address] documented as of this encounter
--- OUTSIDE RECORDS SUMMARY | 2022-03-27 09:22 | XMS_ITS | Encounter Summary ---
:1945 Author Organization [place] [address] Care Team Providers Name Role Phone Lovely Vicente MD Primary Care Provider Encounter Details Date Type Department Care Team Description 08/09/2017 Clinical Support Same Day at [facility] Canceled (D-SCHED ERROR [facility] / CORRECT ION ) [place] [address] Social History Tobacco Use Types Packs/Day [...] MD [facility] [place] [address] (Wo rk) 05/28/2022 Laboratory Appointment Lab 05/28/2022 Office Visit Cardiology Zulma Dolan MD [facility] [place] [address] Liz Poole PA [facility] [address] 06/10/2022 Office Visit Dermatology Laura Scherer MD [facility] [address] [place], [place] [address] (Wo rk) documented as of this encounter Procedures Procedure Name Priority Date/Time Associated Diagnosis Comme nts MARINE SERVICES TECHNICIAN 08/09/2017 12:00 AM Resul ts for this SCAN EST procedure are i n the results section. documented in this encounter Results SCAN DOC: MARINE SERVICES TECHNICIAN (08/09/2017 12:00 AM EST) Narrative 08/09/2017 12:00 AM EST This result has an attachment that is no t available. Ordered by an unspecified provider. Scanning Provider MEDIA MGR SCAN EXT ORDR/RSLT documented in this encounter Visit Diagnoses Not on filedocumented in this encounter Care Teams Subsorter Relationship Specialty Start Date End Date Lovely Vicente MD PCP - General 04/16/[address] [place] [address] documented as of this encounter
--- OUTSIDE RECORDS SUMMARY | 2022-03-27 09:22 | XMS_ITS | Encounter Summary ---
:1945 Author Organization [facility] [place] [address] Care Team Providers Name Role Phone Lovely Vicente MD Primary Care Provider Reason for Visit Auth/Cert Specialty Diagnoses / Procedures Referred By Contact Refer red To Contact Diagnoses Critical lower limb ischemia CELLULITIS RT FOOT Procedures EMERGENCY Referral ID Status Reason Start Date Expiration Date Visits Requ ested Visits Authorized [id number] 1 1 Encounter Details Date Type Department Care Team Description 08/11/2017 Surgery Main Operating Room Yonathan Smith (M SURG) DRESSING CHANGE Barbara Ocampo MD (FOR OTHER THAN IVAN) [facility] UNDER ANES. 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 [...] Dorsalis Pedis (Ankle) Artery ?132 ? 0.94 ??Terry-Biphasic ? Posterior Tibial (Ankle) Artery ??154 ? 1.10 ??Terry-Biphasic ? Fourth Toe ? 67 ?0.48 ?? [...] foot. Discharge Conditions/Prognosis: Good Discharge to: [facility] Rehab Discharge Medications: Your Medications New Medications [...] For any problems or questions please call [phone] ZELDA Smith, bulb planter Nurse Clinician For issues on weeknights after 5pm and weekends please call [phone] and ask for the Vascular Fellow constitutional law professor. General Instructions None Future Appointments and Orders Future Appointments Provider Department Dept Phone 08/26/2017 4:00 PM Aurelia Rivera PA [facility] [place] [phone] 09/07/2017 3:00 PM LAB, THREE L Lab 3L [facility] [phone] 09/07/2017 4:00 PM Luz Prescott MD Endocrinology [facility] [place] [phone] 09/09/2017 8:00 AM Barbra Soares APRN Pain Management [facility] [place] [phone] Please bring a list of your current [...] For any problems or questions please call [phone] ZELDA Smith, bulb planter Nurse Clinician For issues on weeknights after 5pm and weekends please call [phone] and ask for the Vascular Fellow constitutional law professor. documented in this encounter Medications at [...] Management Discharge Note Patient Destination: [facility] ([place] [address] [place] [id number] Transportation: with (at bedside) Time of Discharge: by 12 noon Level of Care: swing Patient Aware: yes Family Notified: yes Md to call report to: Yissel Quintero SEALING MACHINE OPERATOR already called RN to call report to: [phone] Shirin Wolf Office of Care Management Pager [phone] Shirin Wagner RN - 08/16/2017 10:50 AM EST [facility] has offered pt swing bed. Pt and accept bed. will transport via car. SEALING MACHINE OPERATOR Yissel Quintero aware; d/c paperwork will be completed by 12 noon. [facility] requests pt arrival by 1400 today; SEALING MACHINE OPERATOR, RN, and family aware. SEALING MACHINE OPERATOR called [facility] and was told that they prefer pt to arrive with wound vac dressing applied but clamped. SEALING MACHINE OPERATOR applied new wound vac dressing. RN has [facility] number to call report. PASSR completed; SEALING MACHINE OPERATOR paged to request provider signature in highlighted space. Indigo from [facility] notified via email that home wound vac now cancelled; [facility] has picked up from room and order cancelled. Packet started and provided to community relations representative. Medicare important message explained to patient, patient signed. Copy provided to patient and signature page to OCM for inclusion in pt EMR. Radha Georges - 08/16/2017 10:34 AM EST Office of Care Management/Outreach Assistant Patient Name: Gregory Hoang : 1945 Patient has been offered a swing bed at [facility]. The patient will be transported by private transportation. No MD to MD report necessary Please call Nursing Report to [phone], ask for database architect. Info to accompany patient: Narcotic Prescriptions Copies of Medication Administration Records and IV sheets for past 10 days. Plan: Outreach Assistant will be available to the patient and Taxicab Starter-RN and/or Transportation Services Representative for further assistance. Patient will be discharged to: [facility] [address] [place] [id number] Radha Powers, Outreach Assistant Mira Black, VAMSI - 08/15/2017 10:05 PM EST [address] Flores to ask if he wanted to hold metoprolol dose. BP 95/58. OK to hold this dose Courtney Brito - 08/15/2017 3:26 PM EST Office of Care Management(OCM)/Outreach Assistant(RS)/ D/C Planning re : Patient is medically ready for d/c today. RS has been in contact with [facility] to see if they could offer a bed. [facility] is still reviewing the case and need their MD to review chart prior to accepting or declining. OCM team needs to check in with [place] tomorrow to check on status. 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 Vac in place. 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 Dietary Tech Kaitlin Saha, RN Pager #[phone] Payam Rosales - 08/13/2017 2:37 PM EST Claim Rep Encounter Note Patient Name: Gregory Hoang : [id number] MR#: [id number] Admit Date: 08/06/2017 1:41 PM Hospital Day 7 days Narrative: Visited to introduce and assess acceptance of Claim Rep services. Pt was awake, alert, oriented and in chair and family was there. Assessment:Patient coping positively with stresses of illness/hospitalization at this time. Pt says that he is hoping to get better and his family was there. Pt says that he has family care and supportand taking one day at time. Intervention and Outcome: Provided emotional support and encouraging presence. Claim Rep services accepted.Conversation to build trusting relationship.Provided pastoral [...] 8.5 New Imaging ?? None new Assessment: Gregroy Hoang is a 72 y.o. 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 A letter describing our affiliations was reviewed with them and theywere educated about their right to choose where referrals are placed. Patient requests referral to [facility] [employer]. PHONE: [phone] FAX: [phone]. And Home NPWT (Negative Pressure Wound Therapy) aka wound vac device made available to pt. Serial # confirmed. Reviewed [facility] Proof of Delivery/Assignment of Benefits Statement(POD/AOB) Form w patient or authorized agent signing on behalf of patient. Copy of POD/AOB provided to pt and other copy faxed to [employer] @ fax# [phone] Expected date of discharge: 08/12/2017. 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 Address: [address] [place] [address] [place] [address] (home) Mobile: Telephone Information: Referring Provider: No [...] Med's given/comments 08/10/17 RLE angio with multiple BOOM STICK WORKER to R posterior tibial artery Fentanyl [...] subcutaneously 3 times daily (with meals). 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 Heparin gtt continues to run. [...] of : 1945 AGE 72 y.o. 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 Unsuccessful draw attempt, another salesperson hosiery will come [facility] to collect blood for PTT test. 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 Vascular resident constitutional law professor and will forward result to the team prior to rounds. 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 [...] left blue toes with CTA showing R PLACEMENT SECRETARY pseudoaneurysm (now thrombosed) and occluded ATs bilaterally. [...] 2.5x80 5. Completion RLE angiogram 6. L PLACEMENT SECRETARY angiogram 7. 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 - L PLACEMENT SECRETARY angriogram demonstrated: High femoral bifurcation over the proximal half of the femoral head. L PLACEMENT SECRETARY access in the distal L PLACEMENT SECRETARY. - Closure device: Mynx Technical Procedure: The [...] for a 45cm 5F Destination. V18 and [place] and QuickCross catheters were used to select [...] 5F. A stationed picture of the L PLACEMENT SECRETARY was performed as the patient was noted to have a very high bifurcation. Access appeared in the distal R PLACEMENT SECRETARY. Closure and sheath removal was performed with [...] PM EST 1440 report called to 5 arminto nurse Tessa AGUSTIN documented in this encounter Miscellaneous Notes Plan of Care - Dory Truong RN - 08/16/2017 10:51 AM EST Problem: Patient Care Overview Goal: Plan of Care Review Outcome: Outcome (s) achieved Date Met: 08/16/17 08/14/17 1939 08/16/17 7901 Coping/Psychosocial Plan Of Care Reviewed With -- patient Plan of Care Review Progress improving -- Discussed discharge instructions with pt and pt's spouse. Discharge to [facility]. Goal: Individualization & Mutuality Outcome: Outcome (s) [...] days -- Transfer Training Goal, Activity Type qsy-qf-mcciu/btzce-tc-voa -- Transfer Train Goal, Gilchrist Level conditional [...] call cabello within reach, Hourly rounding by RN/LACE ROLLER OPERATOR. Bed alarm / Chair alarm. Patient-specific fall [...] Operative Note Patient Name: Gregory Hoang : [id number] MR#: [id number] Case Date: 08/09/2017 Surgeon: Surgeon(s) and Role: [...] 2.5x80 5. Completion RLE angiogram 6. L PLACEMENT SECRETARY angiogram 7. Mynx closure Precautions/Restrictions: fall, sternal [...] other (see comments) (or swing bed) Pager: [phone] BASSAM ELIAS, PT 08/14/2017 Inpatient Physical Therapy [...] facilities over the weekend except for [facility]. CM spoke with [facility] KANWAL Sandhu RN who said that they do not anticipate any beds over the weekend. Reviewed with patient/ that they need to be aware that patient will need to take the first bed offered at the facilities that they make referrals to. Their choices are: 1- [facility] PHONE: [phone] FAX: [phone] 2- [facility] ([place] [address] [place] [address] 3- [facility]) [address] [place] [address] I have discussed Medicare/Private Insurance [...] RS/CM on Wednesday to follow-up. Covering pager #[phone] for today. Plan of Care - Henrique [...] with additional findings of pseudoaneurysm on R PLACEMENT SECRETARY and bilateral anterior tibial artery occlusions. Was [...] an outpatient once discharged. Have patient call [phone] to set up an appointment. Follow-up: Dermatology will sign-off for now. Please do not hesitate to contact us if you have any questions orconcerns. Impression and Recommendations discussed with primary team on 08/13/2017. Karo Henderson MD Resident in Dermatology Section of Dermatology, Department of Surgery [facility] Pager [phone] Patient seen and evaluated with staff Test Inspection Engineer: Halima Cordero MD Section of Dermatology [facility] Level of Resident Supervision: Direct [...] 2.5x80 5. Completion RLE angiogram 6. L PLACEMENT SECRETARY angiogram 7. Mynx closure Active Non-Hospital Problems [...] home with home health ([facility] PT[facility]OT) Pager: [phone] YASIR TELLO OT 08/12/2017 Occupational Therapy Rehabilitation [...] 2.5x80 5. Completion RLE angiogram 6. L PLACEMENT SECRETARY angiogram 7. 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 Completion RLE angiogram 6. L PLACEMENT SECRETARY angiogram 7. Mynx closure He is very [...] Anticipated Discharge Disposition: inpatient rehabilitation facility Pager: [phone] LAWRENCE GONZALEZ, PT 08/11/2017 Physical Therapy Rehabilitation [...] 7 days Transfer Training Goal, Activity Type rqm-ay-jmozh/onkta-ig-pyg Transfer Train Goal, Gilchrist Level conditional independence [...] call cabello within reach, Hourly rounding by RN/LACE ROLLER OPERATOR. Bed alarm / Chair alarm. ? Patient-specific [...] Advance Care Planning: on file Kisha Hoang [facility] [phone] Current Coping/Education/Information Needs: pt and spouse state [...] Health/Prescription Coverage: Primary Insurance: MEDICARE Secondary Insurance: [place] Prescription Coverage: See above Preferred Pharmacy: [facility] Other: N/A Primary Care Provider: Lovely Vicente MD [phone] Patient/Caregiver Goals of Treatment: Patient plans to [...] of care planning. Kaitlin Saha RN Pager: [phone] Plan of Care - Melba Jaramillo RN [...] Overview Goal: Plan of Care Review 08/08/17 0804 Coping/Psychosocial Plan Of Care Reviewed With patient [...] call cabello within reach, Hourly rounding by RN/LACE ROLLER OPERATOR. Bed alarm / Chair alarm. Patient-specific fall [...] at bedside and MD TEAM Carrying pager [phone] contacted (via Radio page) and notified of [...] Zulma Dolan MD [facility] [place], [place] [address] (Wo rk) 05/28/2022 Laboratory Appointment Lab 05/28/2022 Office Visit Cardiology Zulma Dolan MD [facility] [place] [address] Liz Poole PA [facility] [place] [address] 06/10/2022 Office Visit Dermatology Laura Scherer MD [facility] DR TEJA [facility] [...] TYPE AND SCREEN Routine 08/09/2017 1:10 AM ([facility]/SHANAD) EST BASIC METABOLIC PANEL Routine 08/09/2017 1:10 [...] 160 65 - 199 [place] mg/dL [facility]OR[facility] Comment: Supplemental ranges: <140 mg/dL before meals <180 mg/dL all other times of the day Specimen Anatomical Collection Method Collection Time Receive d Time (Source) Location / / Volume Laterality Blood specimen 08/16/2017 7:28 AM 018 7:28 (specimen) EST AM EST Yonathan Smith MD POINT OF CARE TEST ORDERABLE S Performing Organization Address City/State/ZIP [place] [address] (ABNORMAL) Differential, Automated (08/16/2017 5:08 AM EST) [facility] Method Time Signature Neutrophils % 73.9 % [facility] LABORATORY Neutr Abs (ANC) 5.37 1.70 - [facility] 6.10 [facility] x10(3)/[facility] LABORATORY Lymphocytes % 10.1 % [facility] LABORATORY Lymphocytes Abs 0.7 (L) 0.9 - 3.2 [facility] x10(3)/[facility] LABORATORY Monocytes % 10.1 % [facility] LABOR[facility]ORY Monocyte Abs 0.7 0.3 - 0.9 [facility] x10(3)/[facility] LABORATORY Eosinophils % 5.1 % [facility] LABOR[facility]ORY Eosinophils Abs 0.4 0.0 - 0.4 [facility] x10(3)/[facility] LABORATORY Basophils % 0.4 % [facility] LABORATORY Basophils Abs 0.0 0.0 - 0.1 [facility] x10(3)/[facility] LABORATORY Immature Gran % 0.40 % GRACE [...] Melisa [place] Abs 0.03 0.00 - 0.04 x10(3)/[facility] LABORATORY Specimen Anatomical Collection Method Collection Time Receive d Time (Source) Location / / Volume Laterality Blood specimen 08/16/2017 5:08 AM 018 5:20 (specimen) EST AM EST Resulting Agency Comment Spec In Lab Yonathan Smith MD HEMATOLOGY ORDERABLES Performing Organization Address City/State/Z[place] [address] (ABNORMAL) Hemogram (08/16/2017 5:08 AM EST) Analysis Performed At Patho logist Time Signature WBC 7.3 4.0 - 9.5 [place] x10(3)/[facility] LABORATORY RBC 3.36 (L) 4.58 - [place] 5.54 [facility] x10(6)/[facility] LABORATORY Hemoglobin 9.7 (L) 13.7 - [facility] 16.5 gm/dL [facility] LABORATORY Hematocrit 30.3 (L) 40.5 - [place] 48.5 % [facility] LABORATORY MCV 90.2 82.9 - [facility] RYAN 93.1 [facility] LABORATORY MCH 28.9 27.5 - [place] 32.1 pg [facility] LABORATORY MCHC 32.0 32.0 - [place] 35.7 gm/dL [facility] LABORATORY Platelets 282 145 - 357 [facility] x10(3[facility] LABORATORY RDWSD 53.9 (H) 36.0 - [place] 45.0 [facility] LABORATORY RDWCV 16.5 (H) 11.4 - [place] 13.8 % [facility] LABORATORY MPV 9.0 7.6 - 12.9 [place] [facility] LABORATORY nRBC % Auto 0.0 % [facility] LABORATORY nRBC Abs Auto 0.000 0.000 - [place] 0.000 [facility] x10(3)/[facility] LABORATORY Specimen Anatomical Collection Method Collection Time Receive d Time (Source) Location / / Volume Laterality Blood specimen 08/16/2017 5:08 AM 018 5:20 (specimen) EST AM EST Resulting Agency Comment Spec In Lab Yonathan Smith MD HEMATOLOGY ORDERABLES Performing Organization Address City/State/ZIP Code Phon e Number [place] [id number] (ABNORMAL) Basic Metabolic Panel (non-fasting) (08/16/2017 5:08 AM EST) P athologist Signature Glucose Lvl 141 65 - 199 [facility] mg/dL [facility] LAB[facility]ORY Comment: Diabetes: >=200 mg/dL [...] or in patients with acute kidney failure. [email or web address] [email or web address] Specimen Anatomical Collection Method Collection Time Receive d Time (Source) Location / / Volume Laterality Blood specimen 08/16/2017 5:08 AM 018 5:20 (specimen) EST AM EST Resulting Agency Comment Spec In Lab Yonathan Smith MD CHEMISTRY ORDERABLES Performing Organization Address City/State/[place] [address] (ABNORMAL) Prothrombin Time (08/16/2017 [...] - [facility]/ZIP Code Phon e Number [address] POCT Glucose (08/16/2017 4:09 AM EST) athologist Signature POC Glucose 147 65 - 199 [facility] mg/dL [facility] LABORATORY Comment: Supplemental ranges: <140 [...] - [facility]/ZIP Code Phon e Number [address] POCT Glucose (08/15/2017 11:56 PM EST) athologist Signature POC Glucose 176 65 - 199 [facility] mg/dL [facility] LABORATORY Comment: Supplemental ranges: <140 [...] - [facility]/ZIP Code Phon e Number [address] POCT Glucose (08/15/2017 8:05 PM EST) athologist Signature POC Glucose 136 65 - 199 [place] mg/dL [facility] LABORATORY Comment: Supplemental ranges: <140 mg/dL before meals <180 mg/dL all other times of the day Specimen Anatomical Collection Method Collection Time Receive d Time (Source) Location / / Volume Laterality Blood specimen 08/15/2017 8:05 PM 018 8:05 (specimen) EST PM EST Yonathan Smith MD POINT OF CARE TEST ORDERABLE S Performing Organization Address City/State/[place] [address] (ABNORMAL) POCT Glucose (08/15/2017 4:50 PM EST) athologist Signature POC Glucose 232 (H) 65 - 199 [facility] mg/dL [facility] Comment: Supplemental ranges: <140 mg/dL before meals <180 mg/dL all other times of the day Specimen Anatomical Collection Method Collection Time Receive d Time (Source) Location / / Volume Laterality Blood specimen 08/15/2017 4:50 PM 018 4:50 (specimen) EST PM EST Yonathan Smith MD POINT OF CARE TEST ORDERABLE S Performing Organization Address City/State/[place] [address] POCT Glucose (08/15/2017 12:04 PM EST) athologist Signature POC Glucose 135 65 - 199 [place] mg/dL [facility] LABORATORY Comment: Supplemental ranges: <140 mg/dL before meals <180 mg/dL all other times of the day Specimen Anatomical Collection Method Collection Time Receive d Time (Source) Location / / Volume Laterality Blood specimen 08/15/2017 12:04 8 (specimen) PM EST 12:04 PM EST Yonathan Smith MD POINT OF CARE TEST ORDERABLE S Performing Organization Address City/State/[place] [address] POCT Glucose (08/15/2017 7:36 AM EST) P athologist Signature POC Glucose 124 65 - 199 [facility] mg/dL [facility] LABORATORY Comment: Supplemental ranges: <140 mg/dL before meals <180 mg/dL all other times of the day Specimen Anatomical Collection Method Collection Time Receive d Time (Source) Location / / Volume Laterality Blood specimen 08/15/2017 7:36 AM 018 7:36 (specimen) EST AM EST Yonathan Smith MD POINT OF CARE TEST ORDERABLE S Performing Organization Address City/State/Z[place] [address] (ABNORMAL) Differential, Automated (08/15/2017 6:22 AM EST) Patholo gist Method Time Signature Neutrophils % 76.1 % [facility] LABORATORY Neutr Abs (ANC) 6.62 (H) 1.70 - [facility] 6.10 [facility] x10(3)/[facility] L LABORATORY Lymphocytes % 9.3 % [facility] LABORATORY Lymphocytes Abs 0.8 (L) 0.9 - 3.2 [facility] x10(3)/[facility] LABORATORY Monocytes % 9.4 % [facility] LABORATORY Monocyte Abs 0.8 0.3 - 0.9 [facility] x10(3)/[facility] LABORATORY Eosinophils % 4.0 % [facility] LABORATORY Eosinophils Abs 0.4 0.0 - 0.4 [facility] x10(3)/[facility] LABORATORY Basophils % 0.6 % [facility] LABORATORY Basophils Abs 0.0 0.0 - 0.1 [facility] x10(3)/[facility] LABORATORY Immature Gran % 0.60 [...] Gran Abs 0.05 (H) 0.00 - 0.04 x10(3)/[facility] LABORATORY Specimen Anatomical Collection Method Collection Time Receive d Time (Source) Location / / Volume Laterality Blood specimen 08/15/2017 6:22 AM 018 6:33 (specimen) EST AM EST Resulting Agency Comment Spec In Lab Yonathan Smith MD HEMATOLOGY ORDERABLES Performing Organization Address City/State/[place] [address] (ABNORMAL) Hemogram (08/15/2017 6:22 AM EST) Analysis Performed At Patho logist Time Signature WBC 8.7 4.0 - 9.5 [facility] x10(3)/[facility] LABORATORY RBC 3.21 (L) 4.58 - [facility] 5.54 [facility] x10(6)/[facility] LABORATORY Hemoglobin 9.1 (L) 13.7 - [facility] gm/dL [facility] LABORATORY Hematocrit 29.0 (L) 40.5 - [facility] 48.5 % [facility] LABORATORY MCV 90.3 82.9 - [facility] 93.1 [facility] LABORATORY MCH 28.3 27.5 - [facility] R[facility]AN 32.1 pg [facility] LABORATORY MCHC 31.4 (L) 32.0 - [facility] 35.7 gm/dL [facility] LABORATORY Platelets 254 145 - 357 [facility] x10(3)/[facility] LABORATORY RDWSD 53.9 (H) 36.0 - [facility] R[facility] 45.0 [facility] LABORATORY RDWCV 16.3 (H) 11.4 - [facility] RYNA 13.8 % [facility] LABORATORY MPV 8.8 7.6 - 12.9 [facility] LABORATORY nRBC % Auto 0.0 % [facility] LABORATORY nRBC Abs Auto 0.000 0.000 - [place] [facility] 0.000 [facility] x10(3)/[facility] LABORATORY Specimen Anatomical Collection Method Collection Time Receive d Time (Source) Location / / Volume Laterality Blood specimen 08/15/2017 6:22 AM 018 6:33 (specimen) EST AM EST Resulting Agency Comment Spec In Lab Yonathan Smith MD HEMATOLOGY ORDERABLES Performing Organization Address City/State/Z[place] [address] (ABNORMAL) Basic Metabolic Panel (non-fasting) (08/15/2017 6:22 AM EST) P athologist Signature Glucose Lvl 118 65 - 199 [facility] mg/dL [facility] LABORATORY Comment: Diabetes: >=200 mg/dL [...] [facility] Estimated GFR >60 >=60 [facility] LABORATORY Comment: The reported eGFR should be multiplied b y 1.2 for patients. The MDRD is not an appropriate measure o f renal function for patients with body mass extremes or in patients with acute kidney failure. http://AktiVax.Xanga/DHnkdep http://AktiVax.Xanga/DHMCnkf Specimen Anatomical Collection Method Collection Time Receive d Time (Source) Location / / Volume Laterality Blood specimen 08/15/2017 6:22 AM 018 6:33 (specimen) EST AM EST Resulting Agency Comment Spec In Lab Yonathan Smith MD CHEMISTRY ORDERABLES Performing Organization Address City/State/[place] [address] (ABNORMAL) Prothrombin Time (08/15/2017 [...] - [facility]/[place] [address] POCT Glucose (08/15/2017 4:33 AM EST) athologist Signature POC Glucose 164 65 - 199 [facility] mg/dL [facility] LABORATORY Comment: Supplemental ranges: <140 mg/dL before meals <180 mg/dL all other times of the day Specimen Anatomical Collection Method Collection Time Receive d Time (Source) Location / / Volume Laterality Blood specimen 08/15/2017 4:33 AM 018 4:33 (specimen) EST AM EST Yonathna Smith MD POINT OF CARE TEST ORDERABLE S Performing Organization Address City/State/[place] [address] POCT Glucose (08/15/2017 12:12 AM EST) athologist Signature POC Glucose 89 65 - 199 [facility] mg/dL [facility] LABORATORY Comment: Supplemental ranges: <140 mg/dL before meals <180 mg/dL all other times of the day Specimen Anatomical Collection Method Collection Time Receive d Time (Source) Location / / Volume Laterality Blood specimen 08/15/2017 12:12 8 (specimen) AM EST 12:12 AM EST Yonathan Smith MD POINT OF CARE TEST ORDERABLE S Performing Organization Address City/State/[place] [address] (ABNORMAL) POCT Glucose (08/14/2017 8:07 PM EST) athologist Signature POC Glucose 204 (H) 65 - 199 [facility] mg/dL [facility] LABORATORY Comment: Supplemental ranges: <140 mg/dL before meals <180 mg/dL all other times of the day Specimen Anatomical Collection Method Collection Time Receive d Time (Source) Location / / Volume Laterality Blood specimen 08/14/2017 8:07 PM 018 8:07 (specimen) EST PM EST Yonathan Smith MD POINT OF CARE TEST ORDERABLE S Performing Organization Address City/State/[place] [address] POCT Glucose (08/14/2017 5:11 PM EST) athologist Signature POC Glucose 174 65 - 199 [place] [facility] mg/dL [facility] LABORATORY Comment: Supplemental ranges: <140 mg/dL before meals <180 mg/dL all other times of the day Specimen Anatomical Collection Method Collection Time Receive d Time (Source) Location / / Volume Laterality Blood specimen 08/14/2017 5:11 PM 018 5:11 (specimen) EST PM EST Yonathan Smith MD POINT OF CARE TEST ORDERABLE S Performing Organization Address City/State/[place] [address] POCT Glucose (08/14/2017 12:10 PM EST) athologist Signature POC Glucose 141 65 - 199 [facility] mg/dL [facility] LABORATORY Comment: Supplemental ranges: <140 mg/dL before meals <180 mg/dL all other times of the day Specimen Anatomical Collection Method Collection Time Receive d Time (Source) Location / / Volume Laterality Blood specimen 08/14/2017 12:10 8 (specimen) PM EST 12:10 PM EST Yonathan Smith MD POINT OF CARE TEST ORDERABLE S Performing Organization Address City/State/[place] [address] POCT Glucose (08/14/2017 8:07 AM EST) P athologist Signature POC Glucose 158 65 - 199 [facility] mg/dL [facility] LABORATORY Comment: Supplemental ranges: <140 mg/dL before meals <180 mg/dL all other times of the day Specimen Anatomical Collection Method Collection Time Receive d Time (Source) Location / / Volume Laterality Blood specimen 08/14/2017 8:07 AM 018 8:07 (specimen) EST AM EST Yonathan Smith MD POINT OF CARE TEST ORDERABLE S Performing Organization Address City/State/[place] [address] (ABNORMAL) Differential, Automated (08/14/2017 4:52 AM EST) Patholo gist Method Time Signature Neutrophils % 78.6 % [facility] LABORATORY Neutr Abs (ANC) 7.70 (H) 1.70 - [facility] 6.10 [facility] x10(3)/[facility] L LABORATORY Lymphocytes % 7.8 % [facility] LABORATORY Lymphocytes Abs 0.8 (L) 0.9 - 3.2 [facility] x10(3)/[facility] LABORATORY Monocytes % 8.8 % [facility] LABORATORY Monocyte Abs 0.9 0.3 - 0.9 [facility] x10(3)/[facility] LABORATORY Eosinophils % 4.0 % [facility] LABORATORY Eosinophils Abs 0.4 0.0 - 0.4 [facility] x10(3)/[facility] LABORATORY Basophils % 0.5 % [facility] LABORATORY Basophils Abs 0.0 0.0 - 0.1 [facility] x10(3)/[facility] LABORATORY Immature Gran % 0.30 [...] 0.00 - 0.04 x10(3)/[facility] LABORATORY Specimen Anatomical Collection Method Collection Time Receive d Time (Source) Location / / Volume Laterality Blood specimen 08/14/2017 4:52 AM 018 5:08 (specimen) EST AM EST Resulting Agency Comment Spec In Lab Yonathan Smith MD HEMATOLOGY ORDERABLES Performing Organization Address City/State/Z[place] [address] (ABNORMAL) Hemogram (08/14/2017 4:52 AM EST) Analysis Performed At Patho logist Time Signature WBC 9.8 (H) 4.0 - 9.5 [facility] x10(3)/[facility] LABORATORY RBC 3.32 (L) 4.58 - [facility] 5.54 [facility] x10(6)/[facility] LABORATORY Hemoglobin 9.5 (L) 13.7 - [facility] 16.5 gm/dL [facility] LABORATORY Hematocrit 30.3 (L) 40.5 - [facility] 48.5 % [facility] LABORATORY MCV 91.3 82.9 - [facility] 93.1 [facility] LABORATORY MCH 28.6 27.5 - [facility] RYAN 32.1 pg [facility] LABORATORY MCHC 31.4 (L) 32.0 - [facility] 35.7 gm/dL [facility] LABORATORY Platelets 263 145 - 357 [facility] x10(3)/[facility] LABORATORY RDWSD 54.8 (H) 36.0 - [place] [facility] 45.0 [facility] LABORATORY RDWCV 16.5 (H) 11.4 - [facility] 13.8 % [facility] LABORATORY MPV 9.1 7.6 - [address].9 [facility] LABORATORY nRBC % Auto 0.0 % [facility] LABORATORY nRBC Abs Auto 0.000 0.000 - [facility] 0.000 [facility] x10(3)/[facility] LABORATORY Specimen Anatomical Collection Method Collection Time Receive d Time (Source) Location / / Volume Laterality Blood specimen 08/14/2017 4:52 AM 018 5:08 (specimen) EST AM EST Resulting Agency Comment Spec In Lab Yonathan Smith MD HEMATOLOGY ORDERABLES Performing Organization Address City/State/Z[place] [address] (ABNORMAL) Prothrombin Time (08/14/2017 [...] Organization Address City/State/[place] [address] (ABNORMAL) Basic Metabolic Panel (non-fasting) (08/14/2017 4:52 AM EST) P athologist Signature Glucose Lvl 135 65 - 199 [facility] mg/dL [facility] LABORATORY Comment: Diabetes: >=200 mg/dL [...] or in patients with acute kidney failure. http://OneDoc/DHnkdep http://OneDoc/DHnkf Specimen Anatomical Collection Method Collection Time Receive d Time (Source) Location / / Volume Laterality Blood specimen 08/14/2017 4:52 AM 018 5:08 (specimen) EST AM EST Resulting Agency Comment Spec In Lab Yonathan Smith MD CHEMISTRY ORDERABLES Performing Organization Address City/State/ZIP [place] [address] POCT Glucose (08/14/2017 3:56 AM EST) P athologist Signature POC Glucose 135 65 - 199 [facility] mg/dL [facility] LABORATORY Comment: Supplemental ranges: <140 mg/dL before meals <180 mg/dL all other times of the day Specimen Anatomical Collection Method Collection Time Receive d Time (Source) Location / / Volume Laterality Blood specimen 08/14/2017 3:56 AM 018 3:56 (specimen) EST AM EST Yonathan Smith MD POINT OF CARE TEST ORDERABLE S Performing Organization Address City/State/ZIP Code Phon e Number [address] POCT Glucose (08/13/2017 11:13 PM EST) athologist Signature POC Glucose 118 65 - 199 [facility] mg/dL [facility] LABORATORY Comment: Supplemental ranges: <140 [...] - [facility]/[place] [address] (ABNORMAL) POCT Glucose (08/13/2017 8:08 PM EST) athologist Signature POC Glucose 204 (H) 65 - 199 [facility] mg/dL [facility] LABORATORY Comment: Supplemental ranges: <140 mg/dL before meals <180 mg/dL all other times of the day Specimen Anatomical Collection Method Collection Time Receive d Time (Source) Location / / Volume Laterality Blood specimen 08/13/2017 8:08 PM 018 8:08 (specimen) EST PM EST Yonathan Smith MD POINT OF CARE TEST ORDERABLE S Performing Organization Address City/State/[place] [address] POCT Glucose (08/13/2017 4:02 PM EST) athologist Signature POC Glucose 145 65 - 199 [facility] mg/dL [facility] LABORATORY Comment: Supplemental ranges: <140 mg/dL before meals <180 mg/dL all other times of the day Specimen Anatomical Collection Method Collection Time Receive d Time (Source) Location / / Volume Laterality Blood specimen 08/13/2017 4:02 PM 018 4:02 (specimen) EST PM EST Yonathan Smith MD POINT OF CARE TEST ORDERABLE S Performing Organization Address City/State/[place] [address] POCT Glucose (08/13/2017 11:31 AM EST) athologist Signature POC Glucose 179 65 - 199 [facility] mg/dL [facility] LABORATORY Comment: Supplemental ranges: <140 [...] - [facility]/[place] [address] (ABNORMAL) POCT Glucose (08/13/2017 10:16 AM EST) athologist Signature POC Glucose 211 (H) 65 - 199 [facility] mg/dL [facility] LABORATORY Comment: Supplemental ranges: <140 [...] - [facility]/[place] [address] JULIAN, legs, multiple levels (08/13/2017 7:42 AM EST) Component Value Ref Test Analysis Performed At Patholo gist Range Method Time Signature VB Text Department: Vascular Surgery Lab VASCUBASE Report Patient: [id number] (GREGORY HOANG) CPT: 09667 ICD10: I99.8 Referring Physician: YONATHAN SMITH ?? Indications: s/p R 1,2,3 toe amps with red left foot, need n ew baseline Diabetes mellitus: yes ICD10 Diagnosis Code: I99.8 Findings: Right ?Pressure (mm Hg) ?? JULIAN ??Waveform ?TBI ?? Brachial Artery ?138 ? Dorsalis Pedis (Ankle) Arter y ?132 ? 0.94 ??Terry- Biphasic ? Posterior Tibial (Ankle) Art anila ??154 ? 1.10 ??Terry-Biphasic ? Fourth Toe ? 67 ? 0.48 [...] Signature POC Glucose 156 65 - 199 [facility] mg/dL [facility] LABORATORY Comment: Supplemental ranges: <140 mg/dL before meals <180 mg/dL all other times of the day Specimen Anatomical Collection Method Collection Time Receive d Time (Source) Location / / Volume Laterality Blood specimen 08/13/2017 7:33 AM 018 7:33 (specimen) EST AM EST Yonathan Smith MD POINT OF CARE TEST ORDERABLE S Performing Organization Address City/State/ZIP Code Phon e Number [place] [id number]OS[address] LAB[address]ORY Drive (ABNORMAL) Differential, Automated (08/13/2017 5:33 AM EST) [facility] Method Time Signature Neutrophils % 77.8 % [facility] LABORATORY Neutr Abs (ANC) 7.83 (H) 1.70 - [facility] 6.10 [facility] x10(3)/[facility] L LABORATORY Lymphocytes % 8.4 % [facility] LABORATORY Lymphocytes Abs 0.8 (L) 0.9 - 3.2 [facility] x10(3)/[facility] LABORATORY Monocytes % 8.3 % [facility] LABORATORY Monocyte Abs 0.8 0.3 - 0.9 [facility] x10(3)/[facility] LABORATORY Eosinophils % 4.6 % [facility] LABORATORY Eosinophils Abs 0.5 (H) 0.0 - 0.4 [facility] x10(3)/[facility] LABORATORY Basophils % 0.5 % [facility] LABORATORY Basophils Abs 0.0 0.0 - 0.1 [facility] x10(3)/[facility] LABORATORY Immature Gran [...] 0.04 0.00 - 0.04 x10(3)/[facility] LABORATORY Specimen Anatomical Collection Method Collection Time Receive d Time (Source) Location / / Volume Laterality Blood specimen 08/13/2017 5:33 AM 018 6:04 (specimen) EST AM EST Resulting Agency Comment Spec In Lab Yonathan Smith MD HEMATOLOGY ORDERABLES Performing Organization Address City/State/Z[place] [address] (ABNORMAL) Hemogram (08/13/2017 5:33 AM EST) Analysis Performed At Patho logist Time Signature WBC 10.1 (H) 4.0 - 9.5 [facility] x10(3)/[facility] LABORATORY RBC 3.21 (L) 4.58 - [facility] 5.54 [facility] x10(6)/[facility] LABORATORY Hemoglobin 9.2 (L) 13.7 - [facility] 16.5 gm/dL [facility] LABORATORY Hematocrit 29.6 (L) 40.5 - [facility] 48.5 % [facility] LABORATORY MCV 92.2 82.9 - [facility] 93.1 [facility] LABORATORY MCH 28.7 27.5 - [facility] 32.1 pg [facility] LABORATORY MCHC 31.1 (L) 32.0 - [facility] 35.7 gm/dL [facility] LABORATORY Platelets 263 145 - 357 [facility] x10(3)/[facility] LABORATORY RDWSD 54.8 (H) 36.0 - [facility] 45.0 [facility] LABORATORY RDWCV 16.4 (H) 11.4 - [facility] 13.8 % [facility] LABORATORY MPV 9.2 7.6 - [address].9 [facility] LABORATORY nRBC % Auto 0.0 % [facility] LABORATORY nRBC Abs Auto 0.000 0.000 - [facility] 0.000 [facility] x10(3)/[facility] LABORATORY Specimen Anatomical Collection Method Collection Time Receive d Time (Source) Location / / Volume Laterality Blood specimen 08/13/2017 5:33 AM 018 6:04 (specimen) EST AM EST Resulting Agency Comment Spec In Lab Yonathan Smith MD HEMATOLOGY ORDERABLES Performing Organization Address City/State/Z[place] [address] (ABNORMAL) Prothrombin Time (08/13/2017 [...] Organization Address City/State/Z[place] [address] (ABNORMAL) Basic Metabolic Panel (non-fasting) (08/13/2017 5:33 AM EST) athologist Signature Glucose Lvl 126 65 - 199 [facility] mg/dL [facility] LABORATORY Comment: Diabetes: >=200 mg/dL [...] [facility] LAB[facility] Estimated GFR >60 >=[address] [facility] LABORATORY Comment: The reported eGFR should be multiplied b y 1.2 for patients. The MDRD is not an appropriate measure o f renal function for patients with body mass extremes or in patients with acute kidney failure. http://OneDoc/DHnkdep http://OneDoc/DHMCnkf Specimen Anatomical Collection Method Collection Time Receive d Time (Source) Location / / Volume Laterality Blood specimen 08/13/2017 5:33 AM 018 6:04 (specimen) EST AM EST Resulting Agency Comment Spec In Lab Yonathan Smith MD CHEMISTRY ORDERABLES Performing Organization Address City/[facility]/ZIP Code Phon e Number [address] POCT Glucose (08/13/2017 4:29 AM EST) athologist Signature POC Glucose 111 65 - 199 [facility] mg/dL [facility] LABORATORY Comment: Supplemental ranges: <140 [...] - [facility]/ZIP Code Phon e Number [address] POCT Glucose (08/12/2017 11:28 PM EST) athologist Signature POC Glucose 164 65 - 199 [facility] mg/dL [facility] LABORATORY Comment: Supplemental ranges: <140 [...] - [facility]/[place] [address] (ABNORMAL) POCT Glucose (08/12/2017 7:40 PM EST) athologist Signature POC Glucose 209 (H) 65 - 199 [facility] mg/dL [facility] LABORATORY Comment: Supplemental ranges: <140 mg/dL before meals <180 mg/dL all other times of the day Specimen Anatomical Collection Method Collection Time Receive d Time (Source) Location / / Volume Laterality Blood specimen 08/12/2017 7:40 PM 018 7:40 (specimen) EST PM EST Yonathan Smith MD POINT OF CARE TEST ORDERABLE S Performing Organization Address City/State/ZIP Code Phon e Number [address] POCT Glucose (08/12/2017 4:24 PM EST) athologist Signature POC Glucose 161 65 - 199 [facility] mg/dL [facility] LABORATORY Comment: Supplemental ranges: <140 mg/dL before meals <180 mg/dL all other times of the day Specimen Anatomical Collection Method Collection Time Receive d Time (Source) Location / / Volume Laterality Blood specimen 08/12/2017 4:24 PM 018 4:24 (specimen) EST PM EST Yonathan Smith MD POINT OF CARE TEST ORDERABLE S Performing Organization Address City/State/[place] [address] POCT Glucose (08/12/2017 12:00 PM EST) athologist Signature POC Glucose 167 65 - 199 [facility] mg/dL [facility] LABORATORY Comment: Supplemental ranges: <140 mg/dL before meals <180 mg/dL all other times of the day Specimen Anatomical Collection Method Collection Time Receive d Time (Source) Location / / Volume Laterality Blood specimen 08/12/2017 12:00 8 (specimen) PM EST 12:00 PM EST Yonathan Smith MD POINT OF CARE TEST ORDERABLE S Performing Organization Address City/State/[place] [address] POCT Glucose (08/12/2017 7:25 AM EST) P athologist Signature POC Glucose 152 65 - 199 [facility] mg/dL [facility] LABORATORY Comment: Supplemental ranges: <140 mg/dL before meals <180 mg/dL all other times of the day Specimen Anatomical Collection Method Collection Time Receive d Time (Source) Location / / Volume Laterality Blood specimen 08/12/2017 7:25 AM 018 7:25 (specimen) EST AM EST Yonathan Smith MD POINT OF CARE TEST ORDERABLE S Performing Organization Address City/State/ZIP Code Phon e Number [place] [phone]OSP[address] LAB[address] (ABNORMAL) Differential, Automated (08/12/2017 6:29 AM EST) Patholo gist Method Time Signature Neutrophils % 78.7 % [facility] LABORATORY Neutr Abs (ANC) 7.94 (H) 1.70 - [facility] 6.10 [facility] x10(3)/[facility] LABORATORY Lymphocytes % 8.8 % [facility] LABORATORY Lymphocytes Abs 0.9 0.9 - 3.2 [facility] x10(3)/[facility] LABORATORY Monocytes % 7.8 % [facility] LABORATORY Monocyte Abs 0.8 0.3 - 0.9 [facility] x10(3)/[facility] LABORATORY Eosinophils % 3.9 % [facility] LABORATORY Eosinophils Abs 0.4 0.0 - 0.4 [facility] x10(3)/[facility] LABORATORY Basophils % 0.3 % [facility] LABORATORY Basophils Abs 0.0 0.0 - 0.1 [facility] x10(3)/[facility] LABORATORY Immature Gran % 0.50 [...] Gran Abs 0.05 (H) 0.00 - 0.04 x10(3)/[facility] LABORATORY Specimen Anatomical Collection Method Collection Time Receive d Time (Source) Location / / Volume Laterality Blood specimen 08/12/2017 6:29 AM 018 6:38 (specimen) EST AM EST Resulting Agency Comment Spec In Lab Yonathan Smith MD HEMATOLOGY ORDERABLES Performing Organization Address City/State/ZIP Code Phon e [place] [address] (ABNORMAL) Hemogram (08/12/2017 6:29 AM EST) Analysis Performed At Patho logist Time Signature WBC 10.1 (H) 4.0 - 9.5 [facility] x10(3)/[facility] LABORATORY RBC 3.02 (L) 4.58 - [facility] 5.54 [facility] x10(6)/[facility] LABORATORY Hemoglobin 8.7 (L) 13.7 - [facility] 16.5 gm/dL [facility] LABORATORY Hematocrit 28.1 (L) 40.5 - [facility] 48.5 % [facility] LABORATORY MCV 93.0 82.9 - [facility] 93.1 [facility] LABORATORY MCH 28.8 27.5 - [facility] 32.1 pg [facility] LABORATORY MCHC 31.0 (L) 32.0 - [facility] 35.7 gm/dL [facility] LABORATORY Platelets 223 145 - 357 [facility] x10(3)/[facility] LABORATORY RDWSD 56.1 (H) 36.0 - [facility] RYAN 45.0 [facility] LABORATORY RDWCV 16.4 (H) 11.4 - [facility] RYAN 13.8 % [facility] LABORATORY MPV 9.0 7.6 - 12.9 [facility] LABORATORY nRBC % Auto 0.0 % [facility] LABORATORY nRBC Abs Auto 0.000 0.000 - [place] RYAN 0.000 [facility] x10(3)/[facility] LABORATORY Specimen Anatomical Collection Method Collection Time Receive d Time (Source) Location / / Volume Laterality Blood specimen 08/12/2017 6:29 AM 018 6:38 (specimen) EST AM EST Resulting Agency Comment Spec In Lab Yonathan Smith MD HEMATOLOGY ORDERABLES Performing Organization Address City/[facility]/[place] [address] (ABNORMAL) Prothrombin Time (08/12/2017 [...] Organization Address City/State/[place] [address] (ABNORMAL) Basic Metabolic Panel (non-fasting) (08/12/2017 6:29 AM EST) athologist Signature Glucose Lvl 151 65 - 199 [facility] mg/dL [facility] LABORATORY Comment: Diabetes: >=200 mg/dL [...] [facility] LAB[facility] Estimated GFR >60 >=60 [facility] LABORATORY Comment: The reported eGFR should be multiplied b y 1.2 for patients. The MDRD is not an appropriate measure o f renal function for patients with body mass extremes or in patients with acute kidney failure. http://OneDoc/DHnkdep http://OneDoc/DHMCnkf Specimen Anatomical Collection Method Collection Time Receive d Time (Source) Location / / Volume Laterality Blood specimen 08/12/2017 6:29 AM 018 6:38 (specimen) EST AM EST Resulting Agency Comment Spec In Lab Yonathan Smith MD CHEMISTRY ORDERABLES Performing Organization Address City/[facility]/[place] [address] POCT Glucose (08/12/2017 4:08 AM EST) athologist Signature POC Glucose 181 65 - 199 [facility] mg/dL [facility] LABORATORY Comment: Supplemental ranges: <140 [...] - [facility]/[place] [address] (ABNORMAL) POCT Glucose (08/12/2017 12:17 AM EST) athologist Signature POC Glucose 221 (H) 65 - 199 [facility] mg/dL [facility] LABORATORY Comment: Supplemental ranges: <140 [...] - [facility]/[place] [address] (ABNORMAL) POCT Glucose (08/11/2017 8:52 PM EST) athologist Signature POC Glucose 221 (H) 65 - 199 [facility] mg/dL [facility] LABORATORY Comment: Supplemental ranges: <140 [...] - [facility]/[place] [address] POCT Glucose (08/11/2017 5:59 PM EST) athologist Signature POC Glucose 169 65 - 199 [facility] mg/dL [facility] LABORATORY Comment: Supplemental ranges: <140 mg/dL before meals <180 mg/dL all other times of the day Specimen Anatomical Collection Method Collection Time Receive d Time (Source) Location / / Volume Laterality Blood specimen 08/11/2017 5:59 PM 018 5:59 (specimen) EST PM EST Yonathan Smith MD POINT OF CARE TEST ORDERABLE S Performing Organization Address City/State/[place] [address] (ABNORMAL) POCT Glucose (08/11/2017 4:08 PM EST) athologist Signature POC Glucose 240 (H) 65 - 199 [facility] mg/dL [facility] LABORATORY Comment: Supplemental ranges: <140 [...] - [facility]/ZIP Code Phon e Number [address] POCT Glucose (08/11/2017 12:04 PM EST) athologist Signature POC Glucose 182 65 - 199 [facility] LABORATORY Comment: Supplemental ranges: <140 [...] - [facility]/ZIP Code Phon e Number [address] POCT Glucose (08/11/2017 7:31 AM EST) athologist Signature POC Glucose 156 65 - 199 [facility] mg/dL [facility] LABORATORY Comment: Supplemental ranges: <140 [...] - [facility]/ZIP Code Phon e Number [address] (ABNORMAL) Differential, Automated (08/11/2017 6:16 AM EST) [facility] Method Time Signature Neutrophils % 83.7 % [facility] LABORATORY Neutr Abs (ANC) 10.76 (H) 1.70 - [facility] 6.10 [facility] x10(3)/[facility] L LABORATORY Lymphocytes % 6.0 % [facility] LABORATORY Lymphocytes Abs 0.8 (L) 0.9 - 3.2 [facility] x10(3)/[facility] LABORATORY Monocytes % 7.5 % [facility] LABORATORY Monocyte Abs 1.0 (H) 0.3 - 0.9 [facility] x10(3)/[facility] LABORATORY Eosinophils % 2.0 % [facility] LABORATORY Eosinophils Abs 0.3 0.0 - 0.4 [facility] x10(3)/[facility] LABORATORY Basophils % 0.3 % [facility] LABORATORY Basophils Abs 0.0 0.0 - 0.1 [facility] x10(3)/[facility] LABORATORY Immature Gran % 0.50 [...] Gran Abs 0.06 (H) 0.00 - 0.04 x10(3)/[facility] LABORATORY Specimen Anatomical Collection Method Collection Time Receive d Time (Source) Location / / Volume Laterality Blood specimen 08/11/2017 6:16 AM 018 6:24 (specimen) EST AM EST Resulting Agency Comment Spec In Lab Yonathan Smith MD HEMATOLOGY ORDERABLES Performing Organization Address City/State/Z[place] [address] (ABNORMAL) Hemogram (08/11/2017 6:16 AM EST) Analysis Performed At Patho logist Time Signature WBC 12.9 (H) 4.0 - 9.5 [facility] x10(3)/[facility] LABORATORY RBC 3.28 (L) 4.58 - [facility] 5.54 [facility] x10(6)/[facility] LABORATORY Hemoglobin 9.5 (L) 13.7 - [facility] 16.5 gm/dL [facility] LABORATORY Hematocrit 29.8 (L) 40.5 - [facility] 48.5 % [facility] LABORATORY MCV 90.9 82.9 - [facility] RYAN 93.1 [facility] LABORATORY MCH 29.0 27.5 - [facility] OLIVASCK 32.1 pg [facility] LABORATORY MCHC 31.9 (L) 32.0 - [facility] 35.7 gm/dL [facility] LABORATORY Platelets 236 145 - 357 [facility] x10(3)/[facility] LABORATORY RDWSD 53.5 (H) 36.0 - [facility] 45.0 [facility] LABORATORY RDWCV 16.3 (H) 11.4 - [facility] RYAN 13.8 % [facility] LABORATORY MPV 8.8 7.6 - 12.9 [facility] LABORATORY nRBC % Auto 0.0 % [facility] LABORATORY nRBC Abs Auto 0.000 0.000 - [facility] RYAN 0.000 [facility] x10(3)/[facility] LABORATORY Specimen Anatomical Collection Method Collection Time Receive d Time (Source) Location / / Volume Laterality Blood specimen 08/11/2017 6:16 AM 018 6:24 (specimen) EST AM EST Resulting Agency Comment Spec In Lab Yonathan Smith MD HEMATOLOGY ORDERABLES Performing Organization Address City/State/Z[place] [address] (ABNORMAL) Prothrombin Time (08/11/2017 [...] Organization Address City/State/[place] [address] Basic Metabolic Panel (non-fasting) (08/11/2017 6:16 AM EST) P athologist Signature Glucose Lvl 139 65 - 199 [facility] mg/dL [facility] LABORATORY Comment: Diabetes: >=200 mg/dL [...] [facility] LAB[facility]ORY Estimated GFR >60 >=60 [facility] LABORATORY Comment: The reported eGFR should be multiplied b y 1.2 for patients. The MDRD is not an appropriate measure o f renal function for patients with body mass extremes or in patients with acute kidney failure. http://AktiVax.Xanga/DHnkdep http://OneDoc/DHMCnkf Specimen Anatomical Collection Method Collection Time Receive d Time (Source) Location / / Volume Laterality Blood specimen 08/11/2017 6:16 AM 018 6:24 (specimen) EST AM EST Resulting Agency Comment Spec In Lab Yonathan Smith MD CHEMISTRY ORDERABLES Performing Organization Address City/State/ZIP Code Phon e Number [address] POCT Glucose (08/11/2017 4:07 AM EST) athologist Signature POC Glucose 162 65 - 199 [facility] mg/dL [facility] LABORATORY Comment: Supplemental ranges: <140 [...] - [facility]/ZIP Code Phon e Number [address] POCT Glucose (08/10/2017 11:59 PM EST) athologist Signature POC Glucose 166 65 - 199 [facility] mg/dL [facility] LABORATORY Comment: Supplemental ranges: <140 mg/dL before meals <180 mg/dL all other times of the day Specimen Anatomical Collection Method Collection Time Receive d Time (Source) Location / / Volume Laterality Blood specimen 08/10/2017 11:59 8 (specimen) PM EST 11:59 PM EST Yonathan Smith MD POINT OF CARE TEST ORDERABLE S Performing Organization Address City/State/ZIP Code Phon e Number [address] POCT Glucose (08/10/2017 8:12 PM EST) athologist Signature POC Glucose 156 65 - 199 [facility] mg/dL [facility] LABORATORY Comment: Supplemental ranges: <140 mg/dL before meals <180 mg/dL all other times of the day Specimen Anatomical Collection Method Collection Time Receive d Time (Source) Location / / Volume Laterality Blood specimen 08/10/2017 8:12 PM 018 8:12 (specimen) EST PM EST Yonathan Smith MD POINT OF CARE TEST ORDERABLE S Performing Organization Address City/State/ZIP Code Phon e Number [place] [id number] (ABNORMAL) POCT Glucose (08/10/2017 4:42 PM EST) P athologist Signature POC Glucose 211 (H) 65 - 199 [facility] mg/dL [facility] LABORATORY Comment: Supplemental ranges: <140 mg/dL before meals <180 mg/dL all other times of the day Specimen Anatomical Collection Method Collection Time Receive d Time (Source) Location / / Volume Laterality Blood specimen 08/10/2017 4:42 PM 018 4:42 (specimen) EST PM EST Yonathan Smith MD POINT OF CARE TEST ORDERABLE S Performing Organization Address City/State/ZIP Code Phon e Number [address] (ABNORMAL) Differential, Automated (08/10/2017 2:30 PM EST) Patholo gist Method Time Signature Neutrophils % 87.6 % [facility] LABORATORY Neutr Abs (ANC) 9.90 (H) 1.70 - [facility] 6.10 [facility] x10(3)/[facility] L LABORATORY Lymphocytes % 4.3 % [facility] LABORATORY Lymphocytes Abs 0.5 (L) 0.9 - 3.2 [facility] x10(3)/[facility] LABORATORY Monocytes % 6.0 % [facility] LABORATORY Monocyte Abs 0.7 0.3 - 0.9 [facility] x10(3)/[facility] LABORATORY Eosinophils % 1.1 % [facility] LABORATORY Eosinophils Abs 0.1 0.0 - 0.4 [facility] x10(3)/[facility] LABORATORY Basophils % 0.4 % [facility] LABORATORY Basophils Abs 0.0 0.0 - 0.1 [facility] x10(3)/[facility] LABORATORY Immature Gran % 0.60 [...] Gran Abs 0.07 (H) 0.00 - 0.04 x10(3)/[facility] LABORATORY Specimen Anatomical Collection Method Collection Time Receive d Time (Source) Location / / Volume Laterality Blood specimen 08/10/2017 2:30 PM 018 2:48 (specimen) EST PM EST Resulting Agency Comment Spec In Lab Yonathan Smith MD HEMATOLOGY ORDERABLES Performing Organization Address City/State/Z[place] [address] (ABNORMAL) Hemogram (08/10/2017 2:30 PM EST) Analysis Performed At Patho logist Time Signature WBC 11.3 (H) 4.0 - 9.5 [facility] x10(3)/[facility] LABORATORY RBC 3.13 (L) 4.58 - [facility] 5.54 [facility] x10(6)/[facility] LABORATORY Hemoglobin 8.9 (L) 13.7 - [facility] 16.[facility] gm/dL [facility] LABORATORY Hematocrit 28.4 (L) 40.5 - [facility] 48.5 % [facility] LABORATORY MCV 90.7 82.9 - [facility] 93.1 [facility] LABORATORY MCH 28.4 27.5 - [facility] 32.1 pg [facility] LABORATORY MCHC 31.3 (L) 32.0 - [facility] 35.7 gm/dL [facility] LABORATORY Platelets 213 145 - 357 [facility] x10(3)/[facility] LABORATORY RDWSD 53.7 (H) 36.0 - [facility] RYAN 45.0 [facility] LABORATORY RDWCV 16.4 (H) 11.4 - [facility] RYAN 13.8 % [facility] LABORATORY MPV 8.9 7.6 - [address].9 [facility] LABORATORY nRBC % Auto 0.0 % [facility] LABORATORY nRBC Abs Auto 0.000 0.000 - [facility] [employer] 0.000 [facility] x10(3)/[facility] LABORATORY Specimen Anatomical Collection Method Collection Time Receive d Time (Source) Location / / Volume Laterality Blood specimen 08/10/2017 2:30 PM 018 2:48 (specimen) EST PM EST Resulting Agency Comment Spec In Lab Yonathan Smith MD HEMATOLOGY ORDERABLES Performing Organization Address City/[facility]/ZIP Code Phon e Number [address] (ABNORMAL) POCT Glucose (08/10/2017 1:50 PM EST) athologist Signature POC Glucose 243 (H) 65 - 199 [facility] mg/dL [facility] LABORATORY Comment: Supplemental ranges: <140 [...] - [facility]/ZIP Code Phon e Number [address] POCT Glucose (08/10/2017 11:21 AM EST) athologist Signature POC Glucose 156 65 - 199 [facility] mg/dL [facility] LABORATORY Comment: Supplemental ranges: <140 [...] - [facility]/ZIP Code Phon e Number [address] (ABNORMAL) Differential, Automated (08/10/2017 10:28 AM EST) [facility] Method Time Signature Neutrophils % 85.3 % [facility] LABORATORY Neutr Abs (ANC) 9.43 (H) 1.70 - [facility] 6.10 [facility] x10(3)/[facility] L LABORATORY Lymphocytes % 5.5 % [facility] LABORATORY Lymphocytes Abs 0.6 (L) 0.9 - 3.2 [facility] x10(3)/[facility] LABORATORY Monocytes % 5.9 % [facility] LABORATORY Monocyte Abs 0.6 0.3 - 0.9 [facility] x10(3)/[facility] LABORATORY Eosinophils % 2.1 % [facility] LABORATORY Eosinophils Abs 0.2 0.0 - 0.4 [facility] x10(3)/[facility] LABORATORY Basophils % 0.4 % [facility] LABORATORY Basophils Abs 0.0 0.0 - 0.1 [facility] x10(3)/[facility] LABORATORY Immature Gran % 0.80 [...] Gran Abs 0.09 (H) 0.00 - 0.04 x10(3)/[facility] LABORATORY Specimen Anatomical Collection Method Collection Time Receive d Time (Source) Location / / Volume Laterality Blood specimen 08/10/2017 10:28 8 (specimen) AM EST 10:35 AM EST Resulting Agency Comment Spec In Lab Yonathan Smith MD HEMATOLOGY ORDERABLES Performing Organization Address City/State/Z[place] [address] (ABNORMAL) Hemogram (08/10/2017 10:28 AM EST) Analysis Performed At Patho logist Time Signature WBC 11.0 (H) 4.0 - 9.5 [facility] x10(3)/[facility] LABORATORY RBC 3.02 (L) 4.58 - [facility] 5.54 [facility] x10(6)/[facility] LABORATORY Hemoglobin 8.8 (L) 13.7 - [facility] 16.5 gm/dL [facility] LABORATORY Hematocrit 28.1 (L) 40.5 - [facility] 48.5 % [facility] LABORATORY MCV 93.0 82.9 - [facility] 93.1 [facility] LABORATORY MCH 29.1 27.5 - [facility] OLIVAS[facility] 32.1 pg [facility] LABORATORY MCHC 31.3 (L) 32.0 - [facility] 35.7 gm/dL [facility] LABORATORY Platelets 207 145 - 357 [facility] x10(3)/[facility] LABORATORY RDWSD 55.3 (H) 36.0 - [facility] 45.0 [facility] LABORATORY RDWCV 16.4 (H) 11.4 - [facility] R[facility] 13.8 % [facility] LABORATORY MPV 9.0 7.6 - 12.9 [facility] LABORATORY nRBC % Auto 0.0 % [facility] nRBC Abs Auto 0.000 0.000 - [facility] DAV[facility] 0.000 [facility] x10(3)/[facility] LABORATORY Specimen Anatomical Collection Method Collection Time Receive d Time (Source) Location / / Volume Laterality Blood specimen 08/10/2017 10:28 8 (specimen) AM EST 10:35 AM EST Resulting Agency Comment Spec In Lab Yonathan Smith MD HEMATOLOGY ORDERABLES Performing Organization Address City/State/Z[place] [address] VS Angiogram/intervention (vascular) (08/10/2017 [...] 2.5x80 5. Completion RLE angiogram 6. L PLACEMENT SECRETARY angiogram 7. 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 L PLACEMENT SECRETARY access in the distal L PLACEMENT SECRETARY. - Closure device: Mynx Technical Procedure: ?The [...] for a 45cm 5F Destination. V18 and [place] a nd QuickCross catheters were used to [...] bifurcation. Access appeared in the distal R PLACEMENT SECRETARY. Closure and sheath removal was performed with [...] 2.5x80 5. Completion RLE angiogram 6. L PLACEMENT SECRETARY angiogram 7. 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 L PLACEMENT SECRETARY access in the distal L PLACEMENT SECRETARY. - Closure device: Mynx Technical Procedure: The [...] for a 45cm 5F Destination. V18 and [place] a nd QuickCross catheters were used to [...] bifurcation. Access appeared in the distal R PLACEMENT SECRETARY. Closure and sheath removal was performed with [...] drip Bedrest Continue antibiotics Yonathan Smith MD IM IR ORDERABLES (ABNORMAL) Differential, Automated (08/10/2017 5:50 AM EST) [facility] Method Time Signature Neutrophils % 80.1 % [facility] LABORATORY Neutr Abs (ANC) 9.01 (H) 1.70 - [facility] 6.10 [facility] x10(3)/[facility] LABORATORY Lymphocytes % 8.8 % [facility] LABORATORY Lymphocytes Abs 1.0 0.9 - 3.2 [facility] x10(3)/[facility] LABORATORY Monocytes % 8.3 % [facility] LABORATORY Monocyte Abs 0.9 0.3 - 0.9 [facility] x10(3)/[facility] LABORATORY Eosinophils % 2.0 % [facility] LABORATORY Eosinophils Abs 0.2 0.0 - 0.4 [facility] x10(3)/[facility] LABORATORY Basophils % 0.4 % [facility] LABORATORY Basophils Abs 0.0 0.0 - 0.1 [facility] x10(3)/[facility] LABORATORY Immature Gran [...] Gran Abs 0.05 (H) 0.00 - 0.04 x10(3)/[facility] LABORATORY Specimen Anatomical Collection Method Collection Time Receive d Time (Source) Location / / Volume Laterality Blood specimen 08/10/2017 5:50 AM 018 5:59 (specimen) EST AM EST Resulting Agency Comment Spec In Lab Yonathan Smith MD HEMATOLOGY ORDERABLES Performing Organization Address City/State/[place] [address] (ABNORMAL) Hemogram (08/10/2017 5:50 AM EST) Analysis Performed At Patho logist Time Signature WBC 11.3 (H) 4.0 - 9.5 [facility] x10(3)/[facility] LABORATORY RBC 3.15 (L) 4.58 - [facility] R[facility] 5.54 [facility] x10(6)/[facility] LABORATORY Hemoglobin 8.9 (L) 13.7 - [facility] 16.[facility] gm/dL [facility] LABORATORY Hematocrit 29.0 (L) 40.5 - [facility] RYAN 48.5 % [facility] LABORATORY MCV 92.1 82.9 - [facility] RYAN 93.1 [facility] LABORATORY MCH 28.3 27.5 - [facility] RYAN 32.1 pg [facility] LABORATORY MCHC 30.7 (L) 32.0 - [facility] RYAN 35.7 gm/dL [facility] LABORATORY Platelets 231 145 - 357 [facility] x[facility](3[facility] RDWSD 53.9 (H) 36.0 - [facility] RYAN 45.0 [facility] LABORATORY RDWCV 16.2 (H) 11.4 - [facility] RYAN 13.8 % [facility] LABORATORY MPV 8.7 7.6 - 12.9 [facility] LABORATORY nRBC % Auto 0.0 % [facility] LABORATORY nRBC Abs Auto 0.000 0.000 - [facility] 0.000 [facility] x10(3)/[facility] LABORATORY Specimen Anatomical Collection Method Collection Time Receive d Time (Source) Location / / Volume Laterality Blood specimen 08/10/2017 5:50 AM 018 5:59 (specimen) EST AM EST Resulting Agency Comment Spec In Lab Yonathan Smith MD HEMATOLOGY ORDERABLES Performing Organization Address City/State/Z[place] [address] (ABNORMAL) Basic Metabolic Panel (non-fasting) (08/10/2017 5:50 AM EST) P athologist Signature Glucose Lvl 135 65 - 199 [facility] mg/dL [facility] LABORATORY Comment: Diabetes: >=200 mg/dL [...] [facility] LAB[facility] Estimated GFR >60 >=60 [facility] LABORATORY Comment: The reported eGFR should be multiplied b y 1.2 for patients. The MDRD is not an appropriate measure o f renal function for patients with body mass extremes or in patients with acute kidney failure. http://AktiVax.Xanga/DHnkdep http://AktiVax.Xanga/DHMCnkf Specimen Anatomical Collection Method Collection Time Receive d Time (Source) Location / / Volume Laterality Blood specimen 08/10/2017 5:50 AM 018 5:59 (specimen) EST AM EST Resulting Agency Comment Spec In Lab Yonathan Smith MD CHEMISTRY ORDERABLES Performing Organization Address [facility] [place] [address] (ABNORMAL) Prothrombin Time (08/10/2017 [...] Organization Address City/[facility] [place] [address] (ABNORMAL) POCT Glucose (08/10/2017 4:01 AM EST) athologist Signature POC Glucose 206 (H) 65 - 199 [facility] mg/dL [facility] LABORATORY Comment: Supplemental ranges: <140 mg/dL before meals <180 mg/dL all other times of the day Specimen Anatomical Collection Method Collection Time Receive d Time (Source) Location / / Volume Laterality Blood specimen 08/10/2017 4:01 AM 018 4:01 (specimen) EST AM EST Yonathan Smith MD POINT OF CARE TEST ORDERABLE S Performing Organization Address City/State/ZIP Code Phon e Number [address] POCT Glucose (08/10/2017 2:01 AM EST) athologist Signature POC Glucose 188 65 - 199 [place] mg/dL [facility] LABORATORY Comment: Supplemental ranges: <140 [...] - [facility]/[place] [address] (ABNORMAL) POCT Glucose (08/09/2017 11:42 PM EST) athologist Signature POC Glucose 283 (H) 65 - 199 [place] mg/dL [facility] LABORATORY Comment: Supplemental ranges: <140 mg/dL before meals <180 mg/dL all other times of the day Specimen Anatomical Collection Method Collection Time Receive d Time (Source) Location / / Volume Laterality Blood specimen 08/09/2017 11:42 8 (specimen) PM EST 11:42 PM EST Yonathan Smith MD POINT OF CARE TEST ORDERABLE S Performing Organization Address City/State/[place] [address] POCT Glucose (08/09/2017 8:55 PM EST) athologist Signature POC Glucose 182 65 - 199 [place] mg/dL [facility] LABORATORY Comment: Supplemental ranges: <140 [...] - [facility]/[place] [address] (ABNORMAL) APTT (08/09/2017 6:42 [...] - [facility]/[place] [address] POCT Glucose (08/09/2017 4:41 PM EST) athologist Signature POC Glucose 195 65 - 199 [facility]dL [facility] LABORATORY Comment: Supplemental ranges: <140 [...] - [facility]/[place] [address] POCT Glucose (08/09/2017 12:29 PM EST) athologist Signature POC Glucose 140 65 - 199 [facility] mg/dL [facility] LABORATORY Comment: Supplemental ranges: <140 mg/dL before meals <180 mg/dL all other times of the day Specimen Anatomical Collection Method Collection Time Receive d Time (Source) Location / / Volume Laterality Blood specimen 08/09/2017 12:29 8 (specimen) PM EST 12:29 PM EST Yonathan Smith MD POINT OF CARE TEST ORDERABLE S Performing Organization Address [facility]/ZIP Code Phon e Number [address] POCT Glucose (08/09/2017 9:59 AM EST) P athologist Signature POC Glucose 135 65 - 199 [facility] mg/dL [facility] LABORATORY Comment: Supplemental ranges: <140 mg/dL before meals <180 mg/dL all other times of the day Specimen Anatomical Collection Method Collection Time Receive d Time (Source) Location / / Volume Laterality Blood specimen 08/09/2017 9:59 AM 018 9:59 (specimen) EST AM EST Yonathan Smith MD POINT OF CARE TEST ORDERABLE S Performing Organization Address [facility]/ZIP Code Phon e Number [address] Specimen to Pathology (08/09/2017 [...] - [facility]/[place] [address] Surgical Pathology Report (08/09/2017 8:40 AM EST) Component Value Ref Test Analysis Performed At Patholo gist Range Method Time Signature Surgical [id number] ? Location: [facility]; [facility]; A [facility] Report The signing pathologist has (i) [...] Henrique Flower Verified: ??08/13/2017 ?Pathologist Performed at: ??-[facility] Dept. of Pathology, [place], [place] CLINICAL INFORMATION Specimen Submitted: A - [...] Organization Address City/State/ZIP [place] [address] Anaerobic Culture (08/09/2017 8:30 AM EST) [facility] true[x] Media Method Time Signature Anaerobic No anaerobic [facility] Culture organisms [facility] LABORATORY Specimen Anatomical Collection Method Collection Time [...] - [facility]/[place] [address] (ABNORMAL) Abscess/Wound Aspirate Culture (08/09/2017 8:30 AM EST) [facility] Method Time Signature Abscess/Wound Moderate mixed [facility] Aspirate bacterial [place] Culture morphotypes [facility] normal LABORATORY cutaneous leroy (A) Gram Stain Rare White Blood Cells [place] Few Gram Positive Cocci in pairs [place] () [facility] LABORATORY Organism Gram Positive [place] Cocci in pairs [place] () [facility] LABORATORY Specimen Anatomical Collection Method [...] - [facility]/ZIP Code Phon e Number [place] [id number] POCT Glucose (08/09/2017 4:28 AM EST) P athologist Signature POC Glucose 128 65 - 199 [facility] mg/dL [facility] LABORATORY Comment: Supplemental ranges: <140 mg/dL before meals <180 mg/dL all other times of the day Specimen Anatomical Collection Method Collection Time Receive d Time (Source) Location / / Volume Laterality Blood specimen 08/09/2017 4:28 AM 018 4:28 (specimen) EST AM EST Yonathan Smith MD POINT OF CARE TEST ORDERABLE S Performing Organization Address City/State/[place] [address] ABORH Recheck Status (08/09/2017 1:10 AM EST) [facility] Method Time Signature ABORH Type Completed [facility] LABORATORY Specimen Anatomical Collection Method Collection Time Receive d Time (Source) Location / / Volume Laterality Blood specimen 08/09/2017 1:10 AM 018 1:35 (specimen) EST AM EST Resulting Agency Comment Spec In Lab Yonathan Smith MD BLOOD BANK ORDERABLES Performing Organization Address City/[facility]/[place] [address] Antibody screen (08/09/2017 1:10 AM EST) [facility] Method Time Signature Ab Screen Negative [facility] LABORATORY Expires at 08/12/2017 [facility] [id number] on: [facility] LABORATORY Specimen Anatomical Collection Method Collection Time Receive d Time (Source) Location / / Volume Laterality Blood specimen 08/09/2017 1:10 AM 018 1:35 (specimen) EST AM EST Resulting Agency Comment Spec In Lab Yonathan Smith MD BLOOD BANK ORDERABLES Performing Organization Address City/[facility]/[place] [address] ABO/Rh Typing (08/09/2017 1:10 [...] - [facility]/[place] [address] (ABNORMAL) APTT (08/09/2017 1:10 [...] Organization Address City/State/ZIP [place] [address] (ABNORMAL) Differential, Automated (08/09/2017 1:10 AM EST) [facility] gist Method Time Signature Neutrophils % 76.2 % [facility] LABORATORY Neutr Abs (ANC) 8.59 (H) 1.70 - [facility] 6.10 [facility] x10(3)/[facility] LABORATORY Lymphocytes % 11.0 % [facility] LABORATORY Lymphocytes Abs 1.2 0.9 - 3.2 [facility] x10(3)/[facility] LABORATORY Monocytes % 8.4 % [facility] LABORATORY Monocyte Abs 1.0 (H) 0.3 - 0.9 [facility] x10(3)/[facility] LABORATORY Eosinophils % 3.5 % [facility] LABORATORY Eosinophils Abs 0.4 0.0 - 0.4 [facility] x10(3)/[facility] LABORATORY Basophils % 0.5 % [facility] LABORATORY Basophils Abs 0.1 0.0 - 0.1 [facility] x10(3)/[facility] LABORATORY Immature Gran [...] Gran Abs 0.05 (H) 0.00 - 0.04 x10(3)/[facility] LABORATORY Specimen Anatomical Collection Method Collection Time Receive d Time (Source) Location / / Volume Laterality Blood specimen 08/09/2017 1:10 AM 018 1:19 (specimen) EST AM EST Resulting Agency Comment Spec In Lab Yonathan Smith MD HEMATOLOGY ORDERABLES Performing Organization Address City/State/ZIP [place] [address] (ABNORMAL) Hemogram (08/09/2017 1:10 AM EST) Analysis Performed At Patho logist Time Signature WBC 11.3 (H) 4.0 - 9.5 [facility] x10(3)/[facility] LABORATORY RBC 3.47 (L) 4.58 - [facility] 5.54 [facility] x10(6)/[facility] LABORATORY Hemoglobin 10.0 (L) 13.7 - [facility] 16.5 gm/dL [facility] LABORATORY Hematocrit 31.9 (L) 40.5 - [facility] 48.5 % [facility] LABORATORY MCV 91.9 82.9 - [facility] 93.1 [facility] LABORATORY MCH 28.8 27.5 - [facility] RYAN 32.1 pg [facility] LABORATORY MCHC 31.3 (L) 32.0 - [facility] 35.7 gm/dL [facility] LABORATORY Platelets 234 145 - 357 [facility] x10(3)/[facility] LABORATORY RDWSD 54.0 (H) 36.0 - [facility] RYAN 45.0 [facility] LABORATORY RDWCV 16.2 (H) 11.4 - [facility] 13.8 % [facility] LABORATORY MPV 8.7 7.6 - 12.9 [facility] LABORATORY nRBC % Auto 0.0 % [facility] LABORATORY nRBC Abs Auto 0.000 0.000 - [place] 0.000 [facility] x10(3)/[facility] LABORATORY Specimen Anatomical Collection Method Collection Time Receive d Time (Source) Location / / Volume Laterality Blood specimen 08/09/2017 1:10 AM 018 1:19 (specimen) EST AM EST Resulting Agency Comment Spec In Lab Yonathan Smith MD HEMATOLOGY ORDERABLES Performing Organization Address [facility] [place] [address] (ABNORMAL) Prothrombin Time (08/09/2017 [...] Smith MD HEMATOLOGY ORDERABLES Performing Organization Address [facility] [place] [address] (ABNORMAL) Basic Metabolic Panel (non-fasting) (08/09/2017 1:10 AM EST) athologist Signature Glucose Lvl 108 65 - 199 [facility] mg/dL [facility] LABORATORY Comment: Diabetes: >=200 mg/dL [...] or in patients with acute kidney failure. [email or web address] [email or web address]/DHMCnkf Specimen Anatomical Collection Method Collection Time Receive d Time (Source) Location / / Volume Laterality Blood specimen 08/09/2017 1:10 AM 018 1:19 (specimen) EST AM EST Resulting Agency Comment Spec In Lab Yonathan Smith MD CHEMISTRY ORDERABLES Performing Organization Address City/State/ZIP Code Phon e Number [address] POCT Glucose (08/09/2017 12:05 AM EST) athologist Signature POC Glucose 128 65 - 199 [facility] mg/dL [facility] LABORATORY Comment: Supplemental ranges: <140 mg/dL before meals <180 mg/dL all other times of the day Specimen Anatomical Collection Method Collection Time Receive d Time (Source) Location / / Volume Laterality Blood specimen 08/09/2017 12:05 8 (specimen) AM EST 12:05 AM EST Yonathan Smith MD POINT OF CARE TEST ORDERABLE S Performing Organization Address City/State/[place] [address] (ABNORMAL) POCT Glucose (08/08/2017 7:36 PM EST) athologist Signature POC Glucose 215 (H) 65 - 199 [facility] mg/dL [facility] LABORATORY Comment: Supplemental ranges: <140 [...] - [facility]/[place] [address] (ABNORMAL) POCT Glucose (08/08/2017 6:23 PM EST) athologist Signature POC Glucose 216 (H) 65 - 199 [facility] mg/dL [facility] LABORATORY Comment: Supplemental ranges: <140 [...] - [facility]/[place] [address] (ABNORMAL) APTT (08/08/2017 6:00 [...] - [facility]/ZIP Code Phon e [place] [facility] [place] [address] POCT Glucose (08/08/2017 4:42 PM EST) athologist Signature POC Glucose 78 65 - 199 [facility] mg/dL [facility] LABORATORY Comment: Supplemental ranges: <140 mg/dL before meals <180 mg/dL all other times of the day Specimen Anatomical Collection Method Collection Time Receive d Time (Source) Location / / Volume Laterality Blood specimen 08/08/2017 4:42 PM 018 4:42 (specimen) EST PM EST Yonathan Smith MD POINT OF CARE TEST ORDERABLE S Performing Organization Address City/State/[place] [address] (ABNORMAL) POCT Glucose (08/08/2017 4:01 PM EST) athologist Signature POC Glucose 58 (L) 65 - 199 [facility] mg/dL [facility] LABORATORY Comment: Supplemental ranges: <140 mg/dL before meals <180 mg/dL all other times of the day Specimen Anatomical Collection Method Collection Time Receive d Time (Source) Location / / Volume Laterality Blood specimen 08/08/2017 4:01 PM 018 4:01 (specimen) EST PM EST Yonathan Smith MD POINT OF CARE TEST ORDERABLE S Performing Organization Address City/State/[place] [address] POCT Glucose (08/08/2017 11:51 AM EST) athologist Signature POC Glucose 90 65 - 199 [facility] mg/dL [facility] LABORATORY Comment: Supplemental ranges: <140 mg/dL before meals <180 mg/dL all other times of the day Specimen Anatomical Collection Method Collection Time Receive d Time (Source) Location / / Volume Laterality Blood specimen 08/08/2017 11:51 8 (specimen) AM EST 11:51 AM EST Yonathan Smith MD POINT OF CARE TEST ORDERABLE S Performing Organization Address City/State/[place] [address] (ABNORMAL) APTT (08/08/2017 10:27 [...] - [facility]/ZIP Code Phon e Number [address] POCT Glucose (08/08/2017 8:02 AM EST) athologist Signature POC Glucose 178 65 - 199 [facility] mg/dL [facility] LABORATORY Comment: Supplemental ranges: <140 [...] - [facility]/[place] [address] (ABNORMAL) APTT (08/08/2017 4:51 AM EST) athologist Signature PTT >160 25 - 35 [facility] (Critical) sec [facility] LABORATORY Comment: Called by: HOWARD, [...] Organization Address City/State/ZIP [place] [address] (ABNORMAL) Differential, Automated (08/08/2017 4:51 AM EST) [facility] gist Method Time Signature Neutrophils % 77.9 % [facility] LABORATORY Neutr Abs (ANC) 8.17 (H) 1.70 - [facility] 6.10 [facility] x10(3)/[facility] LABORATORY Lymphocytes % 10.3 % [facility] LABORATORY Lymphocytes Abs 1.1 0.9 - 3.2 [facility] x10(3)/[facility] LABORATORY Monocytes % 7.0 % [facility] LABORATORY Monocyte Abs 0.7 0.3 - 0.9 [facility] x10(3)/[facility] LABORATORY Eosinophils % 3.6 % [facility] LABORATORY Eosinophils Abs 0.4 0.0 - 0.4 [facility] x10(3)/[facility] LABORATORY Basophils % 0.5 % [facility] LABORATORY Basophils Abs 0.0 0.0 - 0.1 [facility] x10(3)/[facility] LABORATORY Immature Gran % 0.70 [...] Gran Abs 0.07 (H) 0.00 - 0.04 x10(3)/[facility] LABORATORY Specimen Anatomical Collection Method Collection Time Receive d Time (Source) Location / / Volume Laterality Blood specimen 08/08/2017 4:51 AM 01/14/2 018 5:14 (specimen) EST AM EST Resulting Agency Comment Spec In Lab Yonathan Smith MD HEMATOLOGY ORDERABLES Performing Organization Address City/State/ZIP Code Phon e Number [address] (ABNORMAL) Hemogram (08/08/2017 4:51 AM EST) Analysis Performed At Patho logist Time Signature WBC 10.5 (H) 4.0 - 9.5 [facility] x[facility](3)/[facility] LABORATORY RBC 3.27 (L) 4.58 - [place] 5.54 [facility] x10(6)/[facility] LABORATORY Hemoglobin 9.3 (L) 13.7 - [facility] 16.5 gm/dL [facility] LABORATORY Hematocrit 30.3 (L) 40.5 - [facility] 48.5 % [facility] LABORATORY MCV 92.7 82.9 - [facility] 93.1 [facility] LABORATORY MCH 28.4 27.5 - [place] 32.1 pg [facility] LABORATORY MCHC 30.7 (L) 32.0 - [place] 35.7 gm/dL [facility] LABORATORY Platelets 252 145 - 357 [facility] x10(3)/[facility] LABORATORY RDWSD 54.6 (H) 36.0 - [place] 45.0 [facility] LABORATORY RDWCV 16.2 (H) 11.4 - [facility] RYAN 13.8 % [facility] LABORATORY MPV 9.1 7.6 - 12.9 [facility] LABORATORY nRBC % Auto 0.0 % [facility] LABORATORY nRBC Abs Auto 0.000 0.000 - [place] 0.000 [facility] x10(3)/[facility] LABORATORY Specimen Anatomical Collection Method Collection Time Receive d Time (Source) Location / / Volume Laterality Blood specimen 08/08/2017 4:51 AM 018 5:14 (specimen) EST AM EST Resulting Agency Comment Spec In Lab Yonathan Smith MD HEMATOLOGY ORDERABLES Performing Organization Address City/State/[place] [address] (ABNORMAL) Prothrombin Time (08/08/2017 [...] Organization Address City/State/[place] [address] (ABNORMAL) Basic Metabolic Panel (non-fasting) (08/08/2017 4:51 AM EST) athologist Signature Glucose Lvl 229 (H) 65 - 199 [facility] mg/dL [facility] LABORATORY Comment: Diabetes: >=200 mg/dL [...] or in patients with acute kidney failure. [email or web address] [email or web address]/[email or web address] Specimen Anatomical Collection Method Collection Time Receive d Time (Source) Location / / Volume Laterality Blood specimen 08/08/2017 4:51 AM 018 5:14 (specimen) EST AM EST Resulting Agency Comment Spec In Lab Yonathan Smith MD CHEMISTRY ORDERABLES Performing Organization Address City/[facility]/ZIP Code Phon e Number [address] POCT Glucose (08/08/2017 4:20 AM EST) athologist Signature POC Glucose 193 65 - 199 [facility] mg/dL [facility] LABORATORY Comment: Supplemental ranges: <140 [...] - [facility]/ZIP Code Phon e Number [address] POCT Glucose (08/07/2017 11:11 PM EST) athologist Signature POC Glucose 124 65 - 199 [facility] mg/dL [facility] LABORATORY Comment: Supplemental ranges: <140 [...] - [facility]/[place] [address] (ABNORMAL) APTT (08/07/2017 10:18 [...] Organization Address City/State/[place] [address] POCT Glucose (08/07/2017 8:10 PM EST) athologist Signature POC Glucose 140 65 - 199 [facility] mg/dL [facility] LABORATORY Comment: Supplemental ranges: <140 mg/dL before meals <180 mg/dL all other times of the day Specimen Anatomical Collection Method Collection Time Receive d Time (Source) Location / / Volume Laterality Blood specimen 08/07/2017 8:10 PM 018 8:10 (specimen) EST PM EST Yonathan Smith MD POINT OF CARE TEST ORDERABLE S Performing Organization Address City/State/[place] [address] POCT Glucose (08/07/2017 5:27 PM EST) athologist Signature POC Glucose 187 65 - 199 [facility] mg/dL [facility] LABORATORY Comment: Supplemental ranges: <140 [...] - [facility]/[place] [address] POCT Glucose (08/07/2017 3:29 PM EST) athologist Signature POC Glucose 86 65 - 199 [facility] mg/dL [facility] LABORATORY Comment: Supplemental ranges: <140 mg/dL before meals <180 mg/dL all other times of the day Specimen Anatomical Collection Method Collection Time Receive d Time (Source) Location / / Volume Laterality Blood specimen 08/07/2017 3:29 PM 018 3:29 (specimen) EST PM EST Yonathan Smith MD POINT OF CARE TEST ORDERABLE S Performing Organization Address [facility] [place] [address] (ABNORMAL) APTT (08/07/2017 2:50 PM EST) athologist [facility] PTT 60 (H) 25 - 35 sec [...] Address City/[facility]/ZIP [facility] [place] [address] (ABNORMAL) POCT Glucose (08/07/2017 2:23 PM EST) athologist Signature POC Glucose 55 (L) 65 - 199 [place] mg/dL [facility] LABORATORY Comment: Supplemental ranges: <140 mg/dL before meals <180 mg/dL all other times of the day Specimen Anatomical Collection Method Collection Time Receive d Time (Source) Location / / Volume Laterality Blood specimen 08/07/2017 2:23 PM 018 2:23 (specimen) EST PM EST Yonathan Smith MD POINT OF CARE TEST ORDERABLE S Performing Organization Address City/State/ZIP Code Phon e Number [address] POCT Glucose (08/07/2017 12:08 PM EST) P athologist Signature POC Glucose 77 65 - 199 [facility] mg/dL [facility] LABORATORY Comment: Supplemental ranges: <140 mg/dL before meals <180 mg/dL all other times of the day Specimen Anatomical Collection Method Collection Time Receive d Time (Source) Location / / Volume Laterality Blood specimen 08/07/2017 12:08 8 (specimen) PM EST 12:08 PM EST Yonathan Smith MD POINT OF CARE TEST ORDERABLE S Performing Organization Address City/State/ZIP Code Phon e Number [place] [address] (ABNORMAL) Differential, Automated (08/07/2017 7:30 AM EST) Patholo gist Method Time Signature Neutrophils % 73.8 % [facility] LABORATORY Neutr Abs (ANC) 7.17 (H) 1.70 - [facility] 6.10 [facility] x10(3)/[facility] L LABORATORY Lymphocytes % 12.2 % [facility] LABORATORY Lymphocytes Abs 1.2 0.9 - 3.2 [facility] x10(3)/[facility] LABORATORY Monocytes % 9.0 % [facility] LABORATORY Monocyte Abs 0.9 0.3 - 0.9 [facility] x10(3)/[facility] LABORATORY Eosinophils % 3.9 % [facility] LABORATORY Eosinophils Abs 0.4 0.0 - 0.4 [facility] x10(3)/[facility] LABORATORY Basophils % 0.6 % [facility] LABORATORY Basophils Abs 0.1 0.0 - 0.1 [facility] x10(3)/[facility] LABORATORY Immature Gran % 0.50 [...] Gran Abs 0.05 (H) 0.00 - 0.04 x10(3)/[facility] LABORATORY Specimen Anatomical Collection Method Collection Time Receive d Time (Source) Location / / Volume Laterality Blood specimen 08/07/2017 7:30 AM 018 7:45 (specimen) EST AM EST Resulting Agency Comment Spec In Lab Yonathan Smith MD HEMATOLOGY ORDERABLES Performing Organization Address City/State/ZIP Code Phon e Number [place] [id number] (ABNORMAL) Hemogram (08/07/2017 7:30 AM EST) Analysis Performed At Patho logist Time Signature WBC 9.7 (H) 4.0 - 9.5 [facility] x10(3)/[facility] LABORATORY RBC 3.54 (L) 4.58 - [facility] 5.54 [facility] x10(6)/[facility] LABORATORY Hemoglobin 9.9 (L) 13.7 - [facility] gm/dL [facility] LABORATORY Hematocrit 32.3 (L) 40.5 - [facility] 48.5 % [facility] LABORATORY MCV 91.2 82.9 - [facility] 93.1 [facility] LABORATORY MCH 28.0 27.5 - [facility] 32.1 pg [facility] LABORATORY MCHC 30.7 (L) 32.0 - [facility] 35.7 gm/dL [facility] LABORATORY Platelets 312 145 - 357 [facility] x10(3)/[facility] LABORATORY RDWSD 53.2 (H) 36.0 - [facility] RDWCV 16.0 (H) 11.4 - [facility] 13.8 % [facility] LABORATORY MPV 8.9 7.6 - 12.9 [facility] LABORATORY nRBC % Auto 0.0 % [facility] LABORATORY nRBC Abs Auto 0.000 0.000 - [facility] 0.000 [facility] x10(3)/[facility] LABORATORY Specimen Anatomical Collection Method Collection Time Receive d Time (Source) Location / / Volume Laterality Blood specimen 08/07/2017 7:30 AM 018 7:45 (specimen) EST AM EST Resulting Agency Comment Spec In Lab Yonathan Smith MD HEMATOLOGY ORDERABLES Performing Organization Address City/State/[place] [address] (ABNORMAL) Basic Metabolic Panel (non-fasting) (08/07/2017 7:30 AM EST) athologist Signature Glucose Lvl 80 65 - 199 [facility] mg/dL [facility] LABORATORY Comment: Diabetes: >=200 mg/dL [...] or in patients with acute kidney failure. [email or web address] Specimen Anatomical Collection Method Collection Time Receive d Time (Source) Location / / Volume Laterality Blood specimen 08/07/2017 7:30 AM 018 7:45 (specimen) EST AM EST Resulting Agency Comment Spec In Lab Yonathan Smith MD CHEMISTRY ORDERABLES Performing Organization Address City/[facility]/ZIP [facility] Phon e Number [address] POCT Glucose (08/07/2017 7:27 AM EST) athologist Signature POC Glucose 81 65 - 199 [facility] mg/dL [facility] LABORATORY Comment: Supplemental ranges: <140 mg/dL before meals <180 mg/dL all other times of the day Specimen Anatomical Collection Method Collection Time Receive d Time (Source) Location / / Volume Laterality Blood specimen 08/07/2017 7:27 AM 018 7:27 (specimen) EST AM EST Yonathan Smith MD POINT OF CARE TEST ORDERABLE S Performing Organization Address City/[facility] Phon e Number [address] APTT (08/07/2017 7:04 AM EST) athologist Signature PTT 34 25 - 35 sec [facility] [...] Organization Address City/State/[place] [address] (ABNORMAL) Prothrombin Time (08/07/2017 [...] Organization Address City/State/[place] [address] POCT Glucose (08/07/2017 4:03 AM EST) athologist Signature POC Glucose 93 65 - 199 [facility]/dL [facility] LABORATORY Comment: Supplemental ranges: <140 mg/dL before meals <180 mg/dL all other times of the day Specimen Anatomical Collection Method Collection Time Receive d Time (Source) Location / / Volume Laterality Blood specimen 08/07/2017 4:03 AM 018 4:03 (specimen) EST AM EST Yonathan Smith MD POINT OF CARE TEST ORDERABLE S Performing Organization Address City/State/[place] [address] POCT Glucose (08/07/2017 12:04 AM EST) athologist Signature POC Glucose 107 65 - 199 [facility] mg/dL [facility] LABORATORY Comment: Supplemental ranges: <140 [...] - [facility]/ZIP Code Phon e Number [address] POCT Glucose (08/06/2017 7:56 PM EST) P athologist Signature POC Glucose 178 65 - 199 [facility] mg/dL [facility] LABORATORY Comment: Supplemental ranges: <140 mg/dL before meals <180 mg/dL all other times of the day Specimen Anatomical Collection Method Collection Time Receive d Time (Source) Location / / Volume Laterality Blood specimen 08/06/2017 7:56 PM 018 7:56 (specimen) EST PM EST Yonathan Smith MD POINT OF CARE TEST ORDERABLE S Performing Organization Address City/State/ZIP Code Phon e Number [address] TcPO2 (08/06/2017 2:32 PM EST) Component Value Ref Test Analysis Performed At Patholo gist Range Method Time Signature VB Text Department: Vascular Surgery Lab VASCUBASE Report Patient: [id number] (GREGORY HOANG) CPT: 3545440 ICD10: I99.8 Referring Physician: YONATHAN SMITH ?? Indications: Patient with embolic debris s/p cath, now with blue toes on right (severe pain) and mild pain on left, needs amputation, ? marya ling potential Diabetes mellitus: No ICD10 Diagnosis Code: [...] in 30 minutes. May repeat juice, dext lasohn, or glucagon once per episode. To avoid [...] Plus 172 (New Bag - Provider: Chiquis cho, VAMSI)1756 (Stopped - Provider: Henrique Marks RN) 171 [...] RN)2022 (Given - Provider: Mira Truong RN) 08 (Given - Provider: Dory Truong RN) 100 mg, Oral, 2 TIMES DAILY, First dose on Wed08/13/17 at 0245, Until Discontinued, Routine enoxaparin (LOVENOX) injection 130 mg (CANCELED) 2009 (Given - Provider: Henrique Marks RN) 130 mg, Subcutaneous, NIGHTLY, First dos e on Wed08/12/17 at 2100, Until Discontinued, Routine furosemide (LASIX) tablet 40 mg 824 (Given - Provider: Elias Mcgrath RN) 08 (Given - Provider: Chiquis Mcgrath RN) 08 (Given - Provider: Dory Truong RN) 40 [...] mg 0825 (Giv en - Provider: Chiquis Mcgarth RN)2011 (Given - Provider: Henrique Marks RN) [...] Marks RN) 0808 (Given - Provider: Chiquis Mcgraht RN)2024 (Given - Provider: Mira Truong, RN) [...] 1400 (Dose co nfirmed - Provider: Chiquis A Linfield, RN) 1400 (Dose confirmed - Provider: Chiquis Mcgrath RN ) Oral, EVERY 24 HOURS, First dose on Ivis 08/12/17 at 1400, If the daily warfarin order has not been placed, contact the Provider to confirm that the order will be written, the dose is held or discontinued. warfarin (COUMADIN) tablet 2.5 mg (COMPLETED) 1724 (Gi keke - Provider: Chiquis Mcgrath RN) [...]
Routine documented in this encounter Care Teams Landscape Technician Relationship Specialty Start Date End Date Lovely Vicente MD PCP - General 04/16/[address] [place] [address] [address] [place] [address] documented as of this encounter
--- OUTSIDE RECORDS SUMMARY | 2022-03-27 09:22 | XMS_ITS | Encounter Summary ---
:1945 [place] [address] Care Team Providers Name Role Phone Lovely Vicente MD Primary Care Provider Reason for Visit Auth/Cert Specialty Diagnoses / Procedures Referred By Contact Refer red To Contact Diagnoses Critical lower limb ischemia CELLULITIS RT FOOT Procedures EMERGENCY Referral ID Status Reason Start Date Expiration Date Visits Requ ested Visits Authorized [id number] 1 1 Encounter Details Date Type Department Care Team Description 08/06/2017 - Hospital Encounter 5 Yonathan Oneill lower limb ischemia; 08/16/2017 Su Flores MD Ischemic foot Hospital [facility] [address] [place] [phone] Social History Tobacco Use Types Packs/Day Years [...] 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 [...] Pedis (Ankle) Artery ?132 ? 0.94 ??[facility] ? Posterior Tibial (Ankle) Artery ??154 ? 1.10 ??[facility] ? Fourth Toe ? 67 ?0.48 ?? [...] the foot. Discharge Conditions/Prognosis: Good Discharge to: [facility] Rehab Discharge Medications: Your [...] For any problems or questions please call [phone] ZELDA Smith, shade classifier Nurse Clinician For issues on weeknights after 5pm and weekends please call [phone] and ask for the Vascular Fellow incident response coordinator. General Instructions None Future Appointments and Orders Future Appointments Provider Department Dept Phone 08/26/2017 4:00 PM Aurelia Rivera PA [facility] [place] [phone] 09/07/2017 3:00 PM LAB, THREE L Lab 3L [facility] [phone] 09/07/2017 4:00 PM Luz Prescott MD Endocrinology at [place] [phone] 09/09/2017 8:00 AM Barbra Soares APRN [facility] Management [facility] [place] [phone] Please bring a list of your current [...] For any problems or questions please call [phone] ZELDA Smith, shade classifier Nurse Clinician For issues on weeknights after 5pm and weekends please call [phone] and ask for the Vascular Fellow incident response coordinator. documented in this encounter Medications at [...] Note Patient Destination: [facility] ([facility]) [address] [place] [address] Transportation: with (at bedside) Time of Discharge: by 12 noon Level of Care: swing Patient Aware: yes Family Notified: yes Md to call report to: Yissel Quintero SPARK PLUG TESTER already called RN to call report to: [phone] Shirin Wolf Office of Care Management Pager [phone] Shirin Wolf RN - 08/16/2017 10:[address] [facility] has offered pt swing bed. Pt and accept bed. will transport via car. SPARK PLUG TESTER Yissel Quintero aware; d/c paperwork will be completed by [address] [facility] requests pt arrival by 1400 today; SPARK PLUG TESTER, RN, and family aware. SPARK PLUG TESTER called [facility] and was told that they prefer pt to arrive with wound vac dressing applied but clamped. SPARK PLUG TESTER applied new wound vac dressing. RN has [facility] number to call report. PASSR completed; SPARK PLUG TESTER paged to request provider signature in highlighted space. Indigo from [facility] notified via email that home wound vac now cancelled; STORES has picked up from room and order cancelled. Packet started and provided to vulcanized fiber unit operator. Medicare important message explained to patient, patient signed. Copy provided to patient and signature page to OCM for inclusion in pt EMR. Radha Georges - 08/16/2017 10:34 AM EST Office of Care Management/Interior Design Project Manager Patient Name: Gregory Hoang : 1945 Patient has been offered a swing bed at [facility]. The patient will be transported by private transportation. No MD to MD report necessary Please call Nursing Report to [phone], ask for physics instructor. Info to accompany patient: Narcotic Prescriptions Copies of Medication Administration Records and IV sheets for past 10 days. Plan: Interior Design Project Manager will be available to the patient and Jewel Blocker And Sawyer-RN and/or Stacker And Sorter Operator for further assistance. Patient will be discharged to: [place] [phone] Radha Powers, Interior Design Project Manager Mira Black, VAMSI - 08/15/2017 10:05 PM EST [address] Flores to ask if he wanted to hold metoprolol dose. BP 95/58. OK to hold this dose Courtney Brito - 08/15/2017 3:26 PM EST Office of Care Management(OCM)/Interior Design Project Manager(RS)/ D/C Planning re : Patient is medically ready for d/c today. RS has been in contact with [facility] to see if they could offer a bed. [facility] is still reviewing the case and need their MD to review chart prior to accepting or declining. OCM team needs to check in with [facility] tomorrow to check on status. 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 Vac in [...] patient's referral to: [facility] PHONE: [phone] FAX: [phone] CM spoke with RS who said that [...] rehab. Await recommendations from PT. Covering pager #[phone]. 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 Type Inspector Kaitlin Saha, RN Pager #[phone] Payam Rosales - 08/13/2017 2:37 PM EST Design And Sales Consultant Encounter Note Patient Name: Gregory Hoang : [id number] MR#: [id number] Admit Date: 08/06/2017 1:41 PM Hospital Day 7 days Narrative: Visited to introduce and assess acceptance of Design And Sales Consultant services. Pt was awake, alert, oriented and in chair and family was there. Assessment:Patient coping positively with stresses of illness/hospitalization at this time. Pt says that he is hoping to get better and his family was there. Pt says that he has family care and supportand taking one day at time. Intervention and Outcome: Provided emotional support and encouraging presence. Design And Sales Consultant services accepted.Conversation to build trusting relationship.Provided pastoral presence.Provided spiritual guidance. Follow-up: yes Time in Direct Care:10 Mins Pyaam Malin 08/13/2017 Viry Starkey MD - 08/13/2017 [...] toe syndrome (possibly from a right SENIOR PRODUCT DEVELOPMENT SCIENTIST PSA which has since thrombosed), now [...] - 08/12/2017 1:06 PM EST The patient/customer sales representative has been provided a list of Home Health Agencies/DME vendors which serve their preferred geographic area. A letter describing our affiliations was reviewed with them and theywere educated about their right to choose where referrals are placed. Patient requests referral to [facility] [email or web address]. PHONE: [phone] FAX: [phone]. And Home NPWT (Negative Pressure Wound Therapy) aka wound vac device made available to pt. Serial # confirmed. Reviewed [facility] Proof of Delivery/Assignment of Benefits Statement(POD/AOB) Form w patient or authorized agent signing on behalf of patient. Copy of POD/AOB provided to pt and other copy faxed to [employer] @ fax# [phone] Expected date of discharge: 08/12/2017. 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 Heparin gtt continues to run. Pt [...] of : 1945 AGE 72 y.o. 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 Continue pain control, IV antibiotics, and heparin infusion. Given that his disease appears to be diabetic, and tibial - pedal, # NEURO: tylenol ulz, prn dilaudid for pain; ativan prn # [...] draw at 0045. Unsuccessful draw attempt, another sheet metal technician will come [facility] to collect blood for PTT test. 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 Vascular resident incident response coordinator and will forward result to the team prior to rounds. 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 [...] blue toes with CTA showing R SENIOR PRODUCT DEVELOPMENT SCIENTIST pseudoaneurysm (now thrombosed) and occluded ATs [...] 5. Completion RLE angiogram 6. L SENIOR PRODUCT DEVELOPMENT SCIENTIST angiogram 7. 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 - L SENIOR PRODUCT DEVELOPMENT SCIENTIST angriogram demonstrated: High femoral bifurcation over the proximal half of the femoral head. L SENIOR PRODUCT DEVELOPMENT SCIENTIST access in the distal L SENIOR PRODUCT DEVELOPMENT SCIENTIST. - Closure device: Mynx Technical Procedure: [...] for a 45cm 5F Destination. V18 and [place] and QuickCross catheters were used to select [...] A stationed picture of the L SENIOR PRODUCT DEVELOPMENT SCIENTIST was performed as the patient was noted to have a very high bifurcation. Access appeared in the distal R SENIOR PRODUCT DEVELOPMENT SCIENTIST. Closure and sheath removal was performed [...] PM EST 1440 report called to 5 baker nurse Tessa AGUSTIN documented in this encounter [...] with pt and pt's spouse. Discharge to [facility]. Goal: Individualization & Mutuality [...] sit/sit to supine -- Bed Mobility Goal, Boone Level independent -- Bed Mobility Goal, Date [...] days -- Transfer Training Goal, Activity Type xra-dk-hcxfe/ycsra-hv-jta -- Transfer Train Goal, [place] Level conditional independence -- Transfer Train Goal, [...] call cabello within reach, Hourly rounding by RN/PIPE FITTER FIRE SPRINKLER SYSTEMS. Bed alarm / Chair alarm. Patient-specific fall [...] Operative Note Patient Name: Gregory Hoang : [id number] MR#: [id number] Case Date: 08/09/2017 Surgeon: Surgeon(s) and Role: [...] 5. Completion RLE angiogram 6. L SENIOR PRODUCT DEVELOPMENT SCIENTIST angiogram 7. Mynx closure Precautions/Restrictions: fall, [...] feet/ bed -> bathroom). Anticipated Discharge Disposition: intermediate facility, other (see comments) (or swing bed) Pager: [phone] BASSAM ELIAS, PT 08/14/2017 Inpatient Physical Therapy [...] to Achieve by discharge Gait Training Goal, Boone Level conditional independence;set up required Gait Training [...] these facilities over the weekend except for [facility]. CM spoke with [facility] CM Drea Sandhu, VAMSI who said that they do not anticipate any beds over the weekend. Reviewed with patient/ that they need to be aware that patient will need to take the first bed offered at the facilities that they make referrals to. Their choices are: 1- [facility] PHONE: [phone] FAX: [phone] 2- [facility] ([facility]) [address] [place] [address] 3- [facility]) [address] [place] [address] I have discussed Medicare/Private Insurance [...] RS/CM on Wednesday to follow-up. Covering pager #[phone] for today. Plan of Care - Henrique [...] additional findings of pseudoaneurysm on R SENIOR PRODUCT DEVELOPMENT SCIENTIST and bilateral anterior tibial artery occlusions. [...] an outpatient once discharged. Have patient call [phone] to set up an appointment. Follow-up: Dermatology will sign-off for now. Please do not hesitate to contact us if you have any questions orconcerns. Impression and Recommendations discussed with primary team on 08/13/2017. Karo Henderson MD Resident in Dermatology Section of Dermatology, Department of Surgery [facility] Pager [phone] Patient seen and evaluated with staff Naturopathic Physician: Halima Cordero MD Section of Dermatology [facility] [...] 5. Completion RLE angiogram 6. L SENIOR PRODUCT DEVELOPMENT SCIENTIST angiogram 7. Mynx closure Active Non-Hospital [...] home with home health ([facility] PT&OT) Pager: [phone] YASIR TELLO OT 08/12/2017 Occupational Therapy Rehabilitation [...] 5. Completion RLE angiogram 6. L SENIOR PRODUCT DEVELOPMENT SCIENTIST angiogram 7. Mynx closure Past Medical [...] with 24/7 assistance and maximal services) Pager: [phone] NICHOLAS MORA, PT 08/12/2017 Physical Therapy Rehabilitation [...] sit/sit to supine -- Bed Mobility Goal, Boone Level independent -- Bed Mobility Goal, Outcome Achieved -- goal ongoing Goal: Gait Training Goal Stand Alone Therapy Goal Outcome: Ongoing (Interventions Implemented as Appropriate) 08/11/17 1310 08/12/17 1510 Gait Training Goal Gait Training Goal, Date Established 08/11/17 -- Gait Training Goal, Time to Achieve 5 - 7 days -- Gait Training Goal, Boone Level conditional independence -- Gait Training Goal, [...] days -- Transfer Training Goal, Activity Type alz-dw-rcuib/pmyow-ja-jex -- Transfer Train Goal, Boone Level conditional independence -- Transfer Training Goal, [...] Operative Note Patient Name: Gregory Hoang : [id number] MR#: [id number] Case Date: 08/11/2017 Surgeon: Surgeon(s) and Role: [...] toe syndrome (possibly from a right SENIOR PRODUCT DEVELOPMENT SCIENTIST PSA which has since thrombosed), now [...] 5. Completion RLE angiogram 6. L SENIOR PRODUCT DEVELOPMENT SCIENTIST angiogram 7. Mynx closure He is [...] Anticipated Discharge Disposition: inpatient rehabilitation facility Pager: [phone] LAWRENCE GONZALEZ, PT 08/11/2017 Physical Therapy Rehabilitation [...] to sit/sit to supine Bed Mobility Goal, Boone Level independent Goal: Gait Training Goal Stand Alone Therapy Goal Outcome: Ongoing (Interventions Implemented as Appropriate) 08/11/17 1310 Gait Training Goal Gait Training Goal, Date Established 08/11/17 Gait Training Goal, Time to Achieve 5 - 7 days Gait Training Goal, Boone Level conditional independence Gait Training Goal, Assist [...] 7 days Transfer Training Goal, Activity Type rpa-he-pncas/cdgkk-cx-jsl Transfer Train Goal, Bo[place] Level conditional independence Plan of [facility] Annetta Sandoval RN - 08/11/2017 [...] call cabello within reach, Hourly rounding by RN/PIPE FITTER FIRE SPRINKLER SYSTEMS. Bed alarm / Chair alarm. ? Patient-specific [...] Kisha Hoang [facility] [phone] Current Coping/Education/Information Needs: pt and spouse state [...] Health/Prescription Coverage: Primary Insurance: MEDICARE Secondary Insurance: [employer] [facility] Prescription Coverage: See above Preferred Pharmacy: [facility] Other: N/A Primary Care Provider: Lovely Vicente MD [phone] Patient/Caregiver Goals of Treatment: Patient plans to [...] of care planning. Kaitlin Saha RN Pager: [phone] Plan of Care - Melba Jaramillo RN [...] Overview Goal: Plan of Care Review 08/08/17 9884 Coping/Psychosocial Plan Of Care Reviewed With patient [...] call cabello within reach, Hourly rounding by RN/PIPE FITTER FIRE SPRINKLER SYSTEMS. Bed alarm / Chair alarm. Patient-specific fall [...] at bedside and MD TEAM Carrying pager [phone] contacted (via Radio page) and notified of [...] Zulma Dolan MD [facility] [place], [place] [address] (Wo rk) 05/28/2022 Laboratory Appointment Lab 05/28/2022 Office Visit Cardiology Zulma Dolan MD [facility] [place] [address] Liz Poole PA [facility] [place] [address] 06/10/2022 Office Visit Dermatology Laura Scherer MD [facility] [address] [facility] [place], [place] [address] (Wo rk) documented as [...] section. TYPE AND SCREEN Routine 08/09/2017 1:10 (MC/CGP/SHANDA) AM EST BASIC METABOLIC PANEL Routine 08/09/2017 [...] [facility] mg/dL [facility] [...] Organization Address City/State/Z[place] [address] (ABNORMAL) Differential, Automated (08/16/2017 5:08 AM EST) [facility] Method Time Signature Neutrophils % 73.9 % [facility] LABORATORY Neutr Abs (ANC) 5.37 1.70 - [facility] 6.10 [facility] x10(3)/[facility] LABORATORY Lymphocytes % 10.1 % [facility] LABORATORY Lymphocytes Abs 0.7 (L) 0.9 - 3.2 [facility] x10(3)/[facility] LABORATORY Monocytes % 10.1 % [facility] LABORATORY Monocyte Abs 0.7 0.3 - 0.9 [facility] x10(3)/[facility] LABORATORY Eosinophils % 5.1 % [facility] LABORATORY Eosinophils Abs 0.4 0.0 - 0.4 [facility] x10(3)/[facility] LABORATORY Basophils % 0.4 % [facility] LABORATORY Basophils Abs 0.0 0.0 - 0.1 [facility] x10(3)/[facility] LABORATORY Immature Gran % 0.40 % [facility] [...] Melisa Gran Abs 0.03 0.00 - 0.04 x10(3)/[facility] Y [facility] LABORATORY Specimen Anatomical Collection Method Collection Time Receive d Time (Source) Location / / Volume Laterality Blood specimen 08/16/2017 5:08 AM 018 5:20 (specimen) EST AM EST Resulting Agency Comment Spec In Lab Yonathan Smith MD HEMATOLOGY ORDERABLES Performing Organization Address City/State/[place] [address] (ABNORMAL) Hemogram (08/16/2017 5:08 AM EST) Analysis Performed At Patho logist Time Signature WBC 7.3 4.0 - 9.5 [facility] x10(3)/[facility] LABORATORY RBC 3.36 (L) 4.58 - [facility] 5.54 [facility] x10(6)/[facility] LABORATORY Hemoglobin 9.7 (L) 13.7 - [facility] gm/dL [facility] LABORATORY Hematocrit 30.3 (L) 40.5 - [facility] 48.5 % [facility] LABORATORY MCV 90.2 82.9 - [facility] 93.1 [facility] LABORATORY MCH 28.9 27.5 - [facility] 32.1 pg [facility] LABORATORY MCHC 32.0 32.0 - [facility] 35.7 gm/dL [facility] LABORATORY Platelets 282 145 - 357 [facility] x10(3)/[facility] LABORATORY RDWSD 53.9 (H) 36.0 - [facility] 45.0 [facility] LABORATORY RDWCV 16.5 (H) 11.4 - [facility] SU 13.8 % [facility] LABORATORY MPV 9.0 7.6 - 12.9 [facility] LABORATORY nRBC % Auto 0.0 % [facility] LABORATORY nRBC Abs Auto 0.000 0.000 - [facility] SU 0.000 [facility] x10(3)/[facility] LABORATORY Specimen Anatomical Collection Method Collection Time Receive d Time (Source) Location / / Volume Laterality Blood specimen 08/16/2017 5:08 AM 018 5:20 (specimen) EST AM EST Resulting Agency Comment Spec In Lab Yonathan Smith MD HEMATOLOGY ORDERABLES Performing Organization Address City/State/[place] [address] (ABNORMAL) Basic Metabolic Panel (non-fasting) (08/16/2017 5:08 AM EST) P athologist Signature Glucose Lvl 141 65 - 199 [facility] mg/dL [facility] [...] or in patients with acute kidney failure. [email or web address] [email or web address]/DHMCnkf Specimen Anatomical Collection Method Collection Time Receive d Time (Source) Location / / Volume Laterality Blood specimen 08/16/2017 5:08 AM 018 5:20 (specimen) EST AM EST Resulting Agency Comment Spec In Lab Yonathan Smith MD CHEMISTRY ORDERABLES Performing Organization Address City/State/[place] [address] (ABNORMAL) Prothrombin Time (08/16/2017 5:08 AM EST) athologist Signature PT 25.2 (H) 11.8 - 14.0 [facility] LABORATORY INR 2.3 (H) 0.9 - 1.1 [facility] LABORATORY Comment: An INR <2.0 [...] Address City/State/ZIP Code Phon e Number [address] POCT Glucose (08/16/2017 4:09 AM EST) athologist Signature POC Glucose 147 65 - 199 [facility]/dL [facility] [...] Address City/State/ZIP [place] [address] POCT Glucose (08/15/2017 11:56 PM EST) athologist Signature POC Glucose 176 65 - 199 [facility] mg/dL [facility] [...] Address City/State/ZIP [place] [address] POCT Glucose (08/15/2017 8:05 [...] Address City/State/ZIP [place] [address] (ABNORMAL) POCT Glucose (08/15/2017 4:50 PM EST) athologist Signature POC Glucose 232 (H) 65 - 199 [facility] SU mg/dL [facility] [...] Address City/State/ZIP [place] [address] POCT Glucose (08/15/2017 12:04 PM EST) athologist Signature POC Glucose 135 65 - 199 [facility] SU mg/dL [facility] [...] Address City/State/ZIP [place] [address] POCT Glucose (08/15/2017 7:36 AM EST) P athologist Signature POC Glucose 124 65 - 199 [facility] mg/dL [facility] [...] Organization Address City/State/Z[place] [address] (ABNORMAL) Differential, Automated (08/15/2017 6:22 AM EST) Patholo gist Method Time Signature Neutrophils % 76.1 % [facility] LABORATORY Neutr Abs (ANC) 6.62 (H) 1.70 - [facility] 6.10 [facility] x10(3)/[facility] L LABORATORY Lymphocytes % 9.3 % [facility] LABORATORY Lymphocytes Abs 0.8 (L) 0.9 - 3.2 [facility] x10(3)/[facility] LABORATORY Monocytes % 9.4 % [facility] LABORATORY Monocyte Abs 0.8 0.3 - 0.9 [facility] x10(3)/[facility] LABORATORY Eosinophils % 4.0 % [facility] LABORATORY Eosinophils Abs 0.4 0.0 - 0.4 [facility] x10(3)/[facility] LABORATORY Basophils % 0.6 % [facility] LABORATORY Basophils Abs 0.0 0.0 - 0.1 [facility] x10(3)/[facility] LABORATORY Immature Gran % 0.60 % [facility] [...] Organization Address City/State/[place] [address] (ABNORMAL) Hemogram (08/15/2017 6:22 AM EST) Analysis Performed At Patho logist Time Signature WBC 8.7 4.0 - 9.5 [facility] x10(3)/[facility] LABORATORY RBC 3.21 (L) 4.58 - [facility] x10(6)/[facility] LABORATORY Hemoglobin 9.1 (L) 13.7 - [facility] 16.5 gm/dL [facility] LABORATORY Hematocrit 29.0 (L) 40.5 - [facility] 48.5 % [facility] LAB[facility]ATORY MCV 90.3 82.9 - [facility] LABORATORY MCH 28.3 27.5 - [facility] 32.1 pg [facility] LABORATORY MCHC 31.4 (L) 32.0 - [facility] 35.[facility] gm/dL [facility] LABORATORY Platelets 254 145 - 357 [facility] x10(3)/[facility] LABORATORY RDWSD 53.9 (H) 36.0 - [facility] SU 45.0 [facility] LABORATORY RDWCV 16.3 (H) 11.4 - [facility] SU 13.8 % [facility] LABORATORY MPV 8.8 7.6 - 12.9 [facility] LABORATORY nRBC % Auto 0.0 % [facility] LABORATORY nRBC Abs Auto 0.000 0.000 - [facility] SU 0.000 [facility] x10(3)/[facility] LABORATORY Specimen Anatomical Collection Method Collection Time Receive d Time (Source) Location / / Volume Laterality Blood specimen 08/15/2017 6:22 AM 018 6:33 (specimen) EST AM EST Resulting Agency Comment Spec In Lab Yonathan Smith MD HEMATOLOGY ORDERABLES Performing Organization Address City/[facility]/ZIP [place] [address] (ABNORMAL) Basic Metabolic Panel (non-fasting) (08/15/2017 6:22 AM EST) athologist Signature Glucose Lvl 118 65 - 199 [facility] mg/dL [facility] [...] [facility] Estimated GFR >60 >=60 [facility] LABORATORY Comment: The reported eGFR should be multiplied b y 1.2 for patients. The MDRD is not an appropriate measure o f renal function for patients with body mass extremes or in patients with acute kidney failure. [email or web address] [email or web address] Specimen Anatomical Collection Method Collection Time Receive d Time (Source) Location / / Volume Laterality Blood specimen 08/15/2017 6:22 AM 018 6:33 (specimen) EST AM EST Resulting Agency Comment Spec In Lab Yonathan Smith MD CHEMISTRY ORDERABLES Performing Organization Address City/[facility]/ZIP [place] [address] (ABNORMAL) Prothrombin Time (08/15/2017 [...] Address City/State/ZIP [place] [address] POCT Glucose (08/15/2017 4:33 AM EST) athologist Signature POC Glucose 164 65 - 199 [facility] Address City/State/ZIP [place] [address] POCT Glucose (08/15/2017 12:12 AM EST) athologist Signature POC Glucose 89 65 - 199 [facility] [...] Address City/State/ZIP [place] [address] (ABNORMAL) POCT Glucose (08/14/2017 [...] Address City/State/ZIP [place] [address] POCT Glucose (08/14/2017 5:11 PM EST) athologist Signature POC Glucose 174 65 - 199 [facility] mg/dL SELECT [...] Address City/State/ZIP [place] [address] POCT Glucose (08/14/2017 12:10 PM EST) athologist Signature POC Glucose 141 65 - 199 [facility] mg/dL SELECT [...] Address City/State/ZIP Code Phon e Number [address] POCT Glucose (08/14/2017 8:07 AM EST) P athologist Signature POC Glucose 158 65 - 199 [facility] mg/dL [facility] [...] Address City/State/ZIP [place] [address] (ABNORMAL) Differential, Automated (08/14/2017 4:52 AM EST) Patholo gist Method Time Signature Neutrophils % 78.6 % [facility]ORATORY Neutr Abs (ANC) 7.70 (H) 1.70 - [facility] 6.10 [facility] x10(3)/[facility] LABORATORY Lymphocytes % 7.8 % [facility]ORY Lymphocytes Abs 0.8 (L) 0.9 - 3.2 [facility] x10(3)/[facility] LABORATORY Monocytes % 8.8 % [facility]ORATORY Monocyte Abs 0.9 0.3 - 0.9 [facility] x10(3)/[facility] LABORATORY Eosinophils % 4.0 % [facility] Eosinophils Abs 0.4 0.0 - 0.4 [facility] x10(3)/[facility] LABORATORY Basophils % 0.5 % [facility] Basophils Abs 0.0 0.0 - 0.1 [facility] x10(3)/[facility] LABORATORY Immature Gran % 0.30 % [facility] [...] Melisa Gran Abs 0.03 0.00 - 0.04 x10(3)/[facility] LABORATORY Specimen Anatomical Collection Method Collection Time Receive d Time (Source) Location / / Volume Laterality Blood specimen 08/14/2017 4:52 AM 018 5:08 (specimen) EST AM EST Resulting Agency Comment Spec In Lab Yonathan Smith MD HEMATOLOGY ORDERABLES Performing Organization Address City/State/[place] [address] (ABNORMAL) Hemogram (08/14/2017 4:52 AM EST) Analysis Performed At Patho logist Time Signature WBC 9.8 (H) 4.0 - 9.5 [facility] x10(3)/[facility] LABORATORY RBC 3.32 (L) 4.58 - [facility] x10(6)/[facility] LABORATORY Hemoglobin 9.5 (L) 13.7 - [facility] gm/dL [facility] LABORATORY Hematocrit 30.3 (L) 40.5 - [facility] SU 48.5 % [facility] LABORATORY MCV 91.3 82.9 - [facility] SU 93.1 [facility] LABORATORY MCH 28.6 27.5 - [facility] 32.1 pg [facility] LABORATORY MCHC 31.4 (L) 32.0 - [facility] SU 35.7 gm/dL [facility] LABORATORY Platelets 263 145 - 357 [facility] LABORATORY RDWSD 54.8 (H) 36.0 - [facility] SU 45.0 [facility] RDWCV 16.5 (H) 11.4 - [facility] SU 13.8 % [facility] LABORATORY MPV 9.1 7.6 - 12.9 [facility] LABORATORY nRBC % Auto 0.0 % [facility] LABORATORY nRBC Abs Auto 0.000 0.000 - [facility] 0.000 [facility] x10(3)/[facility] LABORATORY Specimen Anatomical Collection Method Collection Time Receive d Time (Source) Location / / Volume Laterality Blood specimen 08/14/2017 4:52 AM 018 5:08 (specimen) EST AM EST Resulting Agency Comment Spec In Lab Yonathan Smith MD HEMATOLOGY ORDERABLES Performing Organization Address City/[facility]/Z[place] [address] (ABNORMAL) Prothrombin Time (08/14/2017 [...] Organization Address City/State/[place] [address] (ABNORMAL) Basic Metabolic Panel (non-fasting) (08/14/2017 4:52 AM EST) athologist Signature Glucose Lvl 135 65 - 199 [facility] mg/dL [facility] [...] or in patients with acute kidney failure. [email or web address] [email or web address] Specimen Anatomical Collection Method Collection Time Receive d Time (Source) Location / / Volume Laterality Blood specimen 08/14/2017 4:52 AM 018 5:08 (specimen) EST AM EST Resulting Agency Comment Spec In Lab Yonathan Smith MD CHEMISTRY ORDERABLES Performing Organization Address City/State/Z[place] [address] POCT Glucose (08/14/2017 3:56 AM EST) P athologist Signature POC Glucose 135 65 - 199 [facility] mg/dL [facility] [...] Address City/State/ZIP Code Phon [place] [address] POCT Glucose (08/13/2017 11:13 [...] Health Systems/ZIP Code Phon [place] [address] (ABNORMAL) POCT Glucose (08/13/2017 [...] Health Systems/ZIP Code [place] [address] POCT Glucose (08/13/2017 4:02 PM EST) athologist Signature POC Glucose 145 65 - 199 [facility] mg/dL SELECT [...] Address City/State/ZIP [place] [address] POCT Glucose (08/13/2017 11:31 AM EST) P athologist Signature POC Glucose 179 65 - 199 [facility]dL [facility] [...] [facility]/ZIP [place] [address] (ABNORMAL) POCT Glucose (08/13/2017 10:16 AM EST) athologist Signature POC Glucose 211 (H) 65 - 199 [facility]dL [facility] [...] City/[facility]/ZIP Code Phon e Number [address] JULIAN, legs, multiple levels (08/13/2017 7:42 AM EST) Component Value Ref Test Analysis Performed At Patholo gist Range Method Time Signature VB Text Department: Vascular Surgery Lab VASCUBASE Report Patient: [id number] (GREGORY HOANG) CPT: 03052 ICD10: I99.8 Referring Physician: YONATHAN SMITH ?? Indications: s/p R 1,2,3 toe amps with red left foot, need n ew baseline Diabetes mellitus: yes ICD10 Diagnosis Code: I99.8 Findings: Right ?Pressure (mm Hg) ?? JULIAN ??Waveform ?TBI ?? Brachial Artery ?138 ? Dorsalis Pedis (Ankle) Arter y ?132 ? 0.94 [facility] ? Posterior Tibial (Ankle) Art ainla ??154 ? 1.10 ??[facility] ? Fourth Toe ? 67 ? 0.48 [...] POC Glucose 156 65 - 199 [facility] mg/dL [facility] [...] Address City/State/ZIP [place] [address] (ABNORMAL) Differential, Automated (08/13/2017 5:33 AM EST) [facility] Method Time Signature Neutrophils % 77.8 % [facility] LABORATORY Neutr Abs (ANC) 7.83 (H) 1.70 - [facility] 6.10 [facility] x10(3)/[facility] L LABORATORY Lymphocytes % 8.4 % [facility] LABORATORY Lymphocytes Abs 0.8 (L) 0.9 - 3.2 [facility] x10(3)/[facility] LABORATORY Monocytes % 8.3 % [facility] LABORATORY Monocyte Abs 0.8 0.3 - 0.9 [facility] x10(3)/[facility] LABORATORY Eosinophils % 4.6 % [facility] LABORATORY Eosinophils Abs 0.5 (H) 0.0 - 0.4 [facility] x10(3)/[facility] LABORATORY Basophils % 0.5 % [facility]ORATORY Basophils Abs 0.0 0.0 - 0.1 [facility] x10(3)/[facility] LABORATORY Immature Gran % 0.40 % [facility] [...] 0.04 0.00 - 0.04 x10(3)/[facility] LABORATORY Specimen Anatomical Collection Method Collection Time Receive d Time (Source) Location / / Volume Laterality Blood specimen 08/13/2017 5:33 AM 018 6:04 (specimen) EST AM EST Resulting Agency Comment Spec In Lab Yonathan Smith MD HEMATOLOGY ORDERABLES Performing Organization Address City/State/ZIP Code Phon e Number [address] (ABNORMAL) Hemogram (08/13/2017 5:33 AM EST) Analysis Performed At Patho logist Time Signature WBC 10.1 (H) 4.0 - 9.5 [facility] x10(3)/[facility] LABORATORY RBC 3.21 (L) 4.58 - [facility] x10(6)/[facility] LABORATORY Hemoglobin 9.2 (L) 13.7 - [facility] 16.5 gm/dL [facility] LABORATORY Hematocrit 29.6 (L) 40.5 - [facility] 48.5 % [facility] LABORATORY MCV 92.2 82.9 - [facility] 93.1 [facility] LABORATORY MCH 28.7 27.5 - [facility] 32.1 pg [facility] LABORATORY MCHC 31.1 (L) 32.0 - [facility] 35.7 gm/dL [facility] LABORATORY Platelets 263 145 - 357 [facility] x10(3)/[facility] LABORATORY RDWSD 54.8 (H) 36.0 - [facility] 45.0 [facility] LABORATORY RDWCV 16.4 (H) 11.4 - [facility] 13.8 % [facility] LABORATORY MPV 9.2 7.6 - 12.9 [facility] LABORATORY nRBC % Auto 0.0 % [facility] LABORATORY nRBC Abs Auto 0.000 0.000 - [facility] 0.000 [facility] x10(3)/[facility] LABORATORY Specimen Anatomical Collection Method Collection Time Receive d Time (Source) Location / / Volume Laterality Blood specimen 08/13/2017 5:33 AM 018 6:04 (specimen) EST AM EST Resulting Agency Comment Spec In Lab Yonathan Smith MD HEMATOLOGY ORDERABLES Performing Organization Address City/State/ZIP [place] [address] (ABNORMAL) Prothrombin Time (08/13/2017 [...] City/State/ZIP Code Phon e Number [place] [id number] [address]OS[address] (ABNORMAL) Basic Metabolic Panel (non-fasting) (08/13/2017 5:33 AM EST) athologist Signature Glucose Lvl 126 65 - 199 [facility] mg/dL [facility] Estimated GFR >60 >=60 [facility] LABORATORY Comment: The reported eGFR should be multiplied b y 1.2 for patients. The MDRD is not an appropriate measure o f renal function for patients with body mass extremes or in patients with acute kidney failure. http://[facility]/DHnkdep [email or web address]/DHMCnkf Specimen Anatomical Collection Method Collection Time Receive d Time (Source) Location / / Volume Laterality Blood specimen 08/13/2017 5:33 AM 018 6:04 (specimen) EST AM EST Resulting Agency Comment Spec In Lab Yonathan Smith MD CHEMISTRY ORDERABLES Performing Organization Address City/[facility]/ZIP [facility] Phon e Number [address] POCT Glucose (08/13/2017 4:29 AM EST) athologist Signature POC Glucose 111 65 - 199 [facility] [...] City/[facility]/ZIP Code Phon e Number [address] POCT Glucose (08/12/2017 11:28 PM EST) athologist Signature POC Glucose 164 65 - 199 [facility] [...] City/[facility]/ZIP [place] [address] (ABNORMAL) POCT Glucose (08/12/2017 7:40 PM EST) athologist Signature POC Glucose 209 (H) 65 - 199 [facility] mg/dL [facility] [...] Address City/State/ZIP Code Phon e Number [address] POCT Glucose (08/12/2017 4:24 PM EST) athologist Signature POC Glucose 161 65 - 199 [facility]/dL [facility] [...] Address City/State/ZIP [place] [address] POCT Glucose (08/12/2017 12:00 [...] Address City/State/ZIP [place] [address] POCT Glucose (08/12/2017 7:25 AM EST) P athologist Signature POC Glucose 152 65 - 199 [facility] mg/dL [facility] [...] Organization Address City/State/Z[place] [address] (ABNORMAL) Differential, Automated (08/12/2017 6:29 AM EST) Patholo gist Method Time Signature Neutrophils % 78.7 % [facility] LABORATORY Neutr Abs (ANC) 7.94 (H) 1.70 - [facility] 6.10 [facility] x10(3)/[facility] LABORATORY Lymphocytes % 8.8 % [facility] LABORATORY Lymphocytes Abs 0.9 0.9 - 3.2 [facility] x10(3)/[facility] LABORATORY Monocytes % 7.8 % [facility] LABORATORY Monocyte Abs 0.8 0.3 - 0.9 [facility] x10(3)/[facility] LABORATORY Eosinophils % 3.9 % [facility] LABORATORY Eosinophils Abs 0.4 0.0 - 0.4 [facility] x10(3)/[facility] LABORATORY Basophils % 0.3 % [facility] LABORATORY Basophils Abs 0.0 0.0 - 0.1 [facility] x10(3)/[facility] LABORATORY Immature Gran % 0.50 % [facility] [...] Organization Address City/State/[place] [address] (ABNORMAL) Hemogram (08/12/2017 6:29 AM EST) Analysis Performed At Patho logist Time Signature WBC 10.1 (H) 4.0 - 9.5 [facility] x10(3)/[facility] LABORATORY RBC 3.02 (L) 4.58 - [facility] x10(6)/[facility] LABORATORY Hemoglobin 8.7 (L) 13.7 - [facility] 16.5 gm/dL [facility] LABORATORY Hematocrit 28.1 (L) 40.5 - [facility] 48.5 % [facility] LABORATORY MCV 93.0 82.9 - [facility] 93.1 [facility] LABORATORY MCH 28.8 27.5 - [facility] 32.1 pg [facility] LABORATORY MCHC 31.0 (L) 32.0 - [facility] 35.7 gm/dL [facility] LABORATORY Platelets 223 145 - 357 [facility] x10(3)/[facility] LABORATORY RDWSD 56.1 (H) 36.0 - [facility] 45.0 [facility] LABORATORY RDWCV 16.4 (H) 11.4 - [facility] SU 13.8 % [facility] LABORATORY MPV 9.0 7.6 - 12.9 [facility] LABORATORY nRBC % Auto 0.0 % [facility] LABORATORY nRBC Abs Auto 0.000 0.000 - [facility] 0.000 [facility] x10(3)/[facility] LABORATORY Specimen Anatomical Collection Method Collection Time Receive d Time (Source) Location / / Volume Laterality Blood specimen 08/12/2017 6:29 AM 018 6:38 (specimen) EST AM EST Resulting Agency Comment Spec In Lab Yonathan Smith MD HEMATOLOGY ORDERABLES Performing Organization Address City/[facility]/ZIP [place] [address] (ABNORMAL) Prothrombin Time (08/12/2017 [...] Smith MD HEMATOLOGY ORDERABLES Performing Organization Address City/[facility]/ZIP [place] [address] (ABNORMAL) Basic Metabolic Panel (non-fasting) (08/12/2017 6:29 AM EST) athologist Signature Glucose Lvl 151 65 - 199 [facility] mg/dL [facility] Estimated GFR >60 >=60 [facility] LABORATORY Comment: The reported eGFR should be multiplied b y 1.2 for patients. The MDRD is not an appropriate measure o f renal function for patients with body mass extremes or in patients with acute kidney failure. http://[facility]/DHnkdep http://[facility]/DHMCnkf Specimen Anatomical Collection Method Collection Time Receive d Time (Source) Location / / Volume Laterality Blood specimen 08/12/2017 6:29 AM 018 6:38 (specimen) EST AM EST Resulting Agency Comment Spec In Lab Yonathan Smith MD CHEMISTRY ORDERABLES Performing Organization Address City/[facility]/ZIP Code Phon e Number [address] POCT Glucose (08/12/2017 4:08 AM EST) athologist Signature POC Glucose 181 65 - 199 [facility] mg/dL [facility] [...] City/[facility]/ZIP [place] [address] (ABNORMAL) POCT Glucose (08/12/2017 12:17 AM EST) athologist Signature POC Glucose 221 (H) 65 - 199 [facility] [...] Address City/State/ZIP [place] [address] (ABNORMAL) POCT Glucose (08/11/2017 [...] City/[facility]/ZIP [place] [address] POCT Glucose (08/11/2017 5:59 [...] Address City/State/ZIP [place] [address] (ABNORMAL) POCT Glucose (08/11/2017 [...] Address City/State/ZIP Code Phon e Number [address] POCT Glucose (08/11/2017 12:04 PM EST) athologist Signature POC Glucose 182 65 - 199 [facility] [...] City/[facility]/ZIP [place] [address] POCT Glucose (08/11/2017 7:31 AM EST) athologist Signature POC Glucose 156 65 - 199 [facility]dL [facility] [...] Address City/State/ZIP Code Phon e Number [address] (ABNORMAL) Differential, Automated (08/11/2017 6:16 AM EST) [facility] gist Method Time Signature Neutrophils % 83.7 % [facility] LABORATORY Neutr Abs (ANC) 10.76 (H) 1.70 - [facility] 6.10 [facility] x10(3)/[facility] LABORATORY Lymphocytes % 6.0 % [facility] LABORATORY Lymphocytes Abs 0.8 (L) 0.9 - 3.2 [facility] x10(3)/[facility] LABORATORY Monocytes % 7.5 % [facility] LABORATORY Monocyte Abs 1.0 (H) 0.3 - 0.9 [facility] x10(3)/[facility] LABORATORY Eosinophils % 2.0 % [facility] LABORATORY Eosinophils Abs 0.3 0.0 - 0.4 [facility] x10(3)/[facility] LABORATORY Basophils % 0.3 % [facility] LABORATORY Basophils Abs 0.0 0.0 - 0.1 [facility] x10(3)/[facility] LABORATORY Immature Gran % 0.50 % [facility] [...] Organization Address City/State/[place] [address] (ABNORMAL) Hemogram (08/11/2017 6:16 AM EST) Analysis Performed At Patho logist Time Signature WBC 12.9 (H) 4.0 - 9.5 [facility] x10(3)/[facility] LABORATORY RBC 3.28 (L) 4.58 - [facility] 5.54 [facility] x10(6)/[facility] LABORATORY Hemoglobin 9.5 (L) 13.7 - [facility] 16.5 gm/dL [facility] LABORATORY Hematocrit 29.8 (L) 40.5 - [facility] 48.5 % [facility] LABORATORY MCV 90.9 82.9 - [facility]1 [facility] LABORATORY MCH 29.0 27.5 - BARBARA DAVIS 32.1 [facility] LABORATORY MCHC 31.9 (L) 32.0 - BARBARA DAVIS 35.7 gm/dL [facility] Platelets 236 145 - 357 [facility] x10(3)/[facility] LABORATORY RDWSD 53.5 (H) 36.0 - BARBARA SU 45.0 [facility] LABORATORY RDWCV 16.3 (H) 11.4 - [facility] 13.8 % [facility] LABORATORY MPV 8.8 7.6 - 12.9 [facility] nRBC % Auto 0.0 % [facility] nRBC Abs Auto 0.000 0.000 - [facility] 0.000 [facility] x10(3)/[facility] LABORATORY Specimen Anatomical Collection Method Collection Time Receive d Time (Source) Location / / Volume Laterality Blood specimen 08/11/2017 6:16 AM 018 6:24 (specimen) EST AM EST Resulting Agency Comment Spec In Lab Yonathan Smith MD HEMATOLOGY ORDERABLES Performing Organization Address City/State/ZIP Code Phon e Number [place] [id number] HOSPITAL LABORATORY Drive (ABNORMAL) Prothrombin Time (08/11/2017 [...] Organization Address City/State/[place] [address] Basic Metabolic Panel (non-fasting) (08/11/2017 6:16 AM EST) P athologist Signature Glucose Lvl 139 65 - 199 [facility] mg/dL [facility] Estimated GFR >60 >=60 [facility] LABORATORY Comment: The reported eGFR should be multiplied b y 1.2 for patients. The MDRD is not an appropriate measure o f renal function for patients with body mass extremes or in patients with acute kidney failure. [email or web address] [email or web address].[email or web address] [email or web address] HR.zulily/DHMCnkf Specimen Anatomical Collection Method Collection Time Receive d Time (Source) Location / / Volume Laterality Blood specimen 08/11/2017 6:16 AM 018 6:24 (specimen) EST AM EST Resulting Agency Comment Spec In Lab Yonathan Smith MD CHEMISTRY ORDERABLES Performing Organization Address City/State/ZIP Code Phon e Number [address] POCT Glucose (08/11/2017 4:07 AM EST) athologist Signature POC Glucose 162 65 - 199 BARBARA ZHAOSU mg/dL [facility] [...] [facility] Systems/ZIP Code Phon e Number [place] [address] POCT Glucose (08/10/2017 11:59 [...] Health Systems/ZIP Code Phon e Number BARBARA DAVIS [address] POCT Glucose (08/10/2017 8:12 [...] 018 8:12 (specimen) EST PM EST Yonathan Simth MD POINT OF CARE TEST ORDERABLE S Performing Organization Address City/State/ZIP [place] [address] (ABNORMAL) POCT Glucose (08/10/2017 4:42 PM EST) P athologist Signature POC Glucose 211 (H) 65 - 199 [facility]/dL [facility] LABORATORY Comment: Supplemental ranges: <140 mg/dL before meals <180 mg/dL all other times of the day Specimen Anatomical Collection Method Collection Time Receive d Time (Source) Location / / Volume Laterality Blood specimen 08/10/2017 4:42 PM 018 4:42 (specimen) EST PM EST Yontahan Smith MD POINT OF CARE TEST ORDERABLE S Performing Organization Address City/State/ZIP Code Phon e Number [address] (ABNORMAL) Differential, Automated (08/10/2017 2:30 PM EST) Patholo gist Method Time Signature Neutrophils % 87.6 % [facility] LABORATORY Neutr Abs (ANC) 9.90 (H) 1.70 - [facility] 6.10 [facility] x10(3)/[facility] L LABORATORY Lymphocytes % 4.3 % [facility] LABORATORY Lymphocytes Abs 0.5 (L) 0.9 - 3.2 [facility] x10(3)/[facility] LABORATORY Monocytes % 6.0 % [facility] LABORATORY Monocyte Abs 0.7 0.3 - 0.9 [facility] x10(3)/[facility] LABORATORY Eosinophils % 1.1 % [facility] LABORATORY Eosinophils Abs 0.1 0.0 - 0.4 [facility] x10(3)/[facility] LABORATORY Basophils % 0.4 % [facility] LABORATORY Basophils Abs 0.0 0.0 - 0.1 [facility] x10(3)/[facility] LABORATORY Immature Gran % 0.60 % [facility] [...] Organization Address City/State/[place] [address] (ABNORMAL) Hemogram (08/10/2017 2:30 PM EST) Analysis Performed At Patho logist Time Signature WBC 11.3 (H) 4.0 - 9.5 [facility] x10(3)/[facility] LABORATORY RBC 3.13 (L) 4.58 - [facility] SU 5.54 [facility] x10(6)/[facility] LABORATORY Hemoglobin 8.9 (L) 13.7 - [facility] 16.5 gm/dL [facility] LABORATORY Hematocrit 28.4 (L) 40.5 - [facility] 48.5 % [facility] LABORATORY MCV 90.7 82.9 - [facility] 93.1 [facility] LABORATORY MCH 28.4 27.5 - [facility] 32.1 pg [facility] LABORATORY MCHC 31.3 (L) 32.0 - [facility] 35.7 gm/dL [facility] LABORATORY Platelets 213 145 - 357 [facility] x10(3)/[facility] LABORATORY RDWSD 53.7 (H) 36.0 - [facility] SU 45.0 [facility] LABORATORY RDWCV 16.4 (H) 11.4 - [facility] SU 13.8 % [facility] LABORATORY MPV 8.9 7.6 - 12.9 [facility] LABORATORY nRBC % Auto 0.0 % [facility] LABORATORY nRBC Abs Auto 0.000 0.000 - [facility] SU 0.000 [facility] x10(3)/[facility] LABORATORY Specimen Anatomical Collection Method Collection Time Receive d Time (Source) Location / / Volume Laterality Blood specimen 08/10/2017 2:30 PM 018 2:48 (specimen) EST PM EST Resulting Agency Comment Spec In Lab Yonathan Smith MD HEMATOLOGY ORDERABLES Performing Organization Address City/State/ZIP [place] [address] (ABNORMAL) POCT Glucose (08/10/2017 1:50 PM EST) athologist Signature POC Glucose 243 (H) 65 - 199 [facility] [...] City/[facility]/ZIP [place] [address] POCT Glucose (08/10/2017 11:21 AM EST) athologist Signature POC Glucose 156 65 - 199 [facility] LABORATORY Comment: Supplemental ranges: <140 mg/dL before meals <180 mg/dL all other times of the day Specimen Anatomical Collection Method Collection Time Receive d Time (Source) Location / / Volume Laterality Blood specimen 08/10/2017 11:21 8 (specimen) AM EST 11:21 AM EST Yonathan Simth MD POINT OF CARE TEST ORDERABLE S Performing Organization Address City/State/ZIP [place] [address] (ABNORMAL) Differential, Automated (08/10/2017 10:28 AM EST) [facility] gist Method Time Signature Neutrophils % 85.3 % [facility] LABORATORY Neutr Abs (ANC) 9.43 (H) 1.70 - [facility] SU 6.10 [facility] x10(3)/[facility] L LABORATORY Lymphocytes % 5.5 % [facility] LABORATORY Lymphocytes Abs 0.6 (L) 0.9 - 3.2 [facility] x10(3)/[facility] LABORATORY Monocytes % 5.9 % [facility] LABORATORY Monocyte Abs 0.6 0.3 - 0.9 [facility] x10(3)/[facility] LABORATORY Eosinophils % 2.1 % [facility] LABORATORY Eosinophils Abs 0.2 0.0 - 0.4 [facility] x10(3)/[facility] LABORATORY Basophils % 0.4 % [facility] LABORATORY Basophils Abs 0.0 0.0 - 0.1 [facility] x10(3)/[facility] LABORATORY Immature Gran % 0.80 % [facility] [...] Organization Address City/State/[place] [address] (ABNORMAL) Hemogram (08/10/2017 10:28 AM EST) Analysis Performed At Patho logist Time Signature WBC 11.0 (H) 4.0 - 9.5 [facility] x10(3)/[facility] LABORATORY RBC 3.02 (L) 4.58 - [facility] 5.54 [facility] x10(6)/[facility] LABORATORY Hemoglobin 8.8 (L) 13.7 - [facility] 16.5 gm/dL [facility] LABORATORY Hematocrit 28.1 (L) 40.5 - BARBARA DAVIS 48.5 % [facility] LABORATORY MCV 93.0 82.9 - [facility] 93.1 [facility] LABORATORY MCH 29.1 27.5 - BARBARA OLIVASCK 32.1 pg [facility] LABORATORY MCHC 31.3 (L) 32.0 - BARBARA DAVIS 35.7 gm/dL [facility] LABORATORY Platelets 207 145 - 357 [place] x10(3)/[facility] LABORATORY RDWSD 55.3 (H) 36.0 - BARBARA OLIVASCK 45.0 [facility] LABORATORY RDWCV 16.4 (H) 11.4 - [place]BAR[facility] SU 13.8 % [facility] LABORATORY MPV 9.0 7.6 - 12.9 [facility] LABORATORY nRBC % Auto 0.0 % [facility] LABORATORY nRBC Abs Auto 0.000 0.000 - BARBARA ZHAOSU 0.000 [facility] x10(3)/[facility] LABORATORY Specimen Anatomical Collection Method Collection Time Receive d Time (Source) Location / / Volume Laterality Blood specimen 08/10/2017 10:28 8 (specimen) AM EST 10:35 AM EST Resulting Agency Comment Spec In Lab Yonathan Smith MD HEMATOLOGY ORDERABLES Performing Organization Address City/State/ZIP Code Phon e Number [place] [id number] HOSPITAL LABORATORY Drive VS Angiogram/intervention (vascular) (08/10/2017 [...] 5. Completion RLE angiogram 6. L SENIOR PRODUCT DEVELOPMENT SCIENTIST angiogram 7. 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 L SENIOR PRODUCT DEVELOPMENT SCIENTIST access in the distal L SENIOR PRODUCT DEVELOPMENT SCIENTIST. - Closure device: Mynx Technical Procedure: [...] for a 45cm 5F Destination. V18 and [place] a nd QuickCross catheters were used to [...] Access appeared in the distal R SENIOR PRODUCT DEVELOPMENT SCIENTIST. Closure and sheath removal was performed [...] 5. Completion RLE angiogram 6. L SENIOR PRODUCT DEVELOPMENT SCIENTIST angiogram 7. 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 L SENIOR PRODUCT DEVELOPMENT SCIENTIST access in the distal L SENIOR PRODUCT DEVELOPMENT SCIENTIST. - Closure device: Mynx Technical Procedure: [...] for a 45cm 5F Destination. V18 and [place] a nd QuickCross catheters were used to [...] Access appeared in the distal R SENIOR PRODUCT DEVELOPMENT SCIENTIST. Closure and sheath removal was performed [...] 1.70 - [facility] 6.10 [facility] x10(3)/[facility] LABORATORY Lymphocytes % 8.8 % [facility] LABORATORY Lymphocytes Abs 1.0 0.9 - 3.2 [facility] LABORATORY Monocytes % 8.3 % [facility] LABORATORY Monocyte Abs 0.9 0.3 - 0.9 [facility] LABORATORY Eosinophils % 2.0 % [facility] LABORATORY Eosinophils Abs 0.2 0.0 - 0.4 [facility] x10(3)/[facility] LABORATORY Basophils % 0.4 % [facility] LABORATORY Basophils Abs 0.0 0.0 - 0.1 [facility] x10(3)/[facility] LABORATORY Immature Gran % 0.40 % [facility] [...] Organization Address City/State/[place] [address] (ABNORMAL) Hemogram (08/10/2017 5:50 AM EST) Analysis Performed At Patho logist Time Signature WBC 11.3 (H) 4.0 - 9.5 [facility] x10(3)/[facility] LABORATORY RBC 3.15 (L) 4.58 - [facility] 5.54 [facility] x10(6)/[facility] LABORATORY Hemoglobin 8.9 (L) 13.7 - [facility] 16[facility] gm/dL [facility] LABORATORY Hematocrit 29.0 (L) 40.5 - [facility] 48.5 % [facility] LABORATORY MCV 92.1 82.9 - [facility] 93[facility]1 [facility] LABORATORY MCH 28.3 27.5 - [place]BARA SU 32.1 pg [facility] LABORATORY MCHC 30.7 (L) 32.0 - [facility] 35.7 gm/dL [facility] LABORATORY Platelets 231 145 - 357 [facility] x10(3)/[facility] LABORATORY RDWSD 53.9 (H) 36.0 - [place] SU 45.0 [facility] LABORATORY RDWCV 16.2 (H) 11.4 - [facility] SU 13.8 % [facility] LABORATORY MPV 8.7 7.6 - 12.9 [facility] LABORATORY nRBC % Auto 0.0 % [facility] LABORATORY nRBC Abs Auto 0.000 0.000 - [facility] 0.000 [facility] x10(3)/[facility] LABORATORY Specimen Anatomical Collection Method Collection Time Receive d Time (Source) Location / / Volume Laterality Blood specimen 08/10/2017 5:50 AM 018 5:59 (specimen) EST AM EST Resulting Agency Comment Spec In Lab Yonathan Smith MD HEMATOLOGY ORDERABLES Performing Organization Address City/State/[place] [address] (ABNORMAL) Basic Metabolic Panel (non-fasting) (08/10/2017 5:50 AM EST) P athologist Signature Glucose Lvl 135 65 - 199 [facility] mg/dL [facility] Estimated GFR >60 >=60 [facility] LABORATORY Comment: The reported eGFR should be multiplied b y 1.2 for patients. The MDRD is not an appropriate measure o f renal function for patients with body mass extremes or in patients with acute kidney failure. http://Needle HR.zulily/DHnkdep [email or web address]://Needle HR.zulily/DHMCnkf Specimen Anatomical Collection Method Collection Time Receive d Time (Source) Location / / Volume Laterality Blood specimen 08/10/2017 5:50 AM 018 5:59 (specimen) EST AM EST Resulting Agency Comment Spec In Lab Yonathan Smith MD CHEMISTRY ORDERABLES Performing Organization Address [facility] [place] [address] (ABNORMAL) Prothrombin Time (08/10/2017 [...] Smith MD HEMATOLOGY ORDERABLES Performing Organization Address City/[facility] [place] [address] (ABNORMAL) POCT Glucose (08/10/2017 4:01 AM EST) athologist Signature POC Glucose 206 (H) 65 - 199 [facility] mg/dL [facility] [...] Address City/State/ZIP [place] [address] POCT Glucose (08/10/2017 2:01 [...] City/[facility]/ZIP [place] [address] (ABNORMAL) POCT Glucose (08/09/2017 11:42 PM EST) athologist Signature POC Glucose 283 (H) 65 - 199 [facility] mg/dL [facility] [...] Address City/State/ZIP [place] [address] POCT Glucose (08/09/2017 8:55 [...] City/[facility]/ZIP [place] [address] (ABNORMAL) APTT (08/09/2017 6:42 [...] Smith MD HEMATOLOGY ORDERABLES Performing Organization Address City/[facility]/ZIP [place] [address] POCT Glucose (08/09/2017 4:41 PM EST) athologist Signature POC Glucose 195 65 - 199 [facility]dL [facility] [...] City/[facility]/ZIP [place] [address] POCT Glucose (08/09/2017 12:29 PM EST) athologist Signature POC Glucose 140 65 - 199 [facility]/dL [facility] [...] S Performing Organization Address [facility]/ZIP Code Phon e Number [address] POCT Glucose (08/09/2017 9:59 AM EST) P athologist Signature POC Glucose 135 65 - 199 [facility] mg/dL [facility] [...] S Performing Organization Address [facility]/ZIP Code [place] [address] Specimen to Pathology (08/09/2017 [...] City/[facility]/ZIP [place] [address] Surgical Pathology Report (08/09/2017 8:40 AM EST) Component Value Ref Test Analysis Performed At Patholo gist Range Method Time Signature Surgical [id number] ? Location: [facility]; [facility]; A [facility] Report The signing pathologist has (i) [...] Henrique Flower Verified: ??08/13/2017 ?Pathologist Performed at: ??-[facility] Dept. of [place]ology, [place], [place] CLINICAL INFORMATION Specimen Submitted: A - [...] Organization Address City/State/Z[place] [address] Anaerobic Culture (08/09/2017 8:30 AM EST) [facility] Method Time Signature Anaerobic No anaerobic [place] SU Culture organisms [facility] LABORATORY Specimen Anatomical Collection Method Collection Time Receive d Time (Source) Location / / Volume Laterality Specimen from STRUCTURE OF RIGHT 08/09/2017 8:30 AM 9:10 abscess FOOT / Unknown EST AM EST (specimen) Comment: SWAB RIGHT GREAT TOE ABSCESS FO R AEROBIC AND ANAEROBIC CULTURES. Resulting Agency Comment Spec In Lab Yonathan Smith MD MICROBIOLOGY - GENERAL ORDER ROBSON Performing Organization Address City/[facility]/ZIP [place] [address] (ABNORMAL) Abscess/Wound Aspirate Culture (08/09/2017 8:30 AM EST) [facility] [employer] Method Time Signature Abscess/Wound Moderate mixed [facility] Aspirate bacterial [place] Culture morphotypes [facility] normal LABORATORY cutaneous leroy (A) Gram Stain Rare White Blood Cells [place]BARA Few Gram Positive Cocci in pairs [place] () [facility] LABORATORY Organism Gram Positive [place] Cocci in pairs [place] () [facility] [...] - GENERAL ORDER ROBSON Performing Organization Address City/[facility]/ZIP Code [place] [address] POCT Glucose (08/09/2017 4:28 AM EST) P athologist Signature POC Glucose 128 65 - 199 [facility] [...] Address City/State/ZIP [place] [address] ABORH Recheck Status (08/09/2017 1:10 AM EST) [facility] Method Time Signature ABORH Type Completed [facility] LABORATORY Specimen Anatomical Collection Method Collection Time Receive d Time (Source) Location / / Volume Laterality Blood specimen 08/09/2017 1:10 AM 018 1:35 (specimen) EST AM EST Resulting Agency Comment Spec In Lab Yonathan Smith MD BLOOD BANK ORDERABLES Performing Organization Address City/State/ZIP [place] [address] Antibody screen (08/09/2017 1:10 AM EST) [facility] Method [place] Signature Ab Screen Negative [facility] LABORATORY Expires at 08/12/2017 [facility] [id number] on: [facility] LABORATORY Specimen Anatomical Collection Method Collection Time Receive d Time (Source) Location / / Volume Laterality Blood specimen 08/09/2017 1:10 AM 018 1:35 (specimen) EST AM EST Resulting Agency Comment Spec In Lab Yonathan Smith MD BLOOD BANK ORDERABLES Performing Organization Address City/State/ZIP [place] [address] ABO/Rh Typing (08/09/2017 1:10 [...] Address City/State/ZIP [place] [address] (ABNORMAL) APTT (08/09/2017 1:10 [...] Organization Address City/State/Z[place] [address] (ABNORMAL) Differential, Automated (08/09/2017 1:10 AM EST) [facility] Method Time Signature Neutrophils % 76.2 % [facility] LABORATORY Neutr Abs (ANC) 8.59 (H) 1.70 - [facility] 6.10 [facility] x10(3)/[facility] LABORATORY Lymphocytes % 11.0 % [facility] LABORATORY Lymphocytes Abs 1.2 0.9 - 3.2 [facility] x10(3)/[facility] LABORATORY Monocytes % 8.4 % [facility] LABORATORY Monocyte Abs 1.0 (H) 0.3 - 0.9 [facility] x10(3)/[facility] LABORATORY Eosinophils % 3.5 % [facility] LABORATORY Eosinophils Abs 0.4 0.0 - 0.4 [facility] x10(3)/[facility] LABORATORY Basophils % 0.5 % [facility] LABORATORY Basophils Abs 0.1 0.0 - 0.1 [facility] x10(3)/[facility] LABORATORY Immature Gran % 0.40 % [facility] [...] Organization Address City/State/Z[place] [address] (ABNORMAL) Hemogram (08/09/2017 1:10 AM EST) Analysis Performed At Patho logist Time Signature WBC 11.3 (H) 4.0 - 9.5 [facility] x10(3)/[facility] LABORATORY RBC 3.47 (L) 4.58 - [facility] x10(6)/[facility] LABORATORY Hemoglobin 10.0 (L) 13.7 - [facility] 16[facility]5 gm/dL [facility] LABORATORY Hematocrit 31.9 (L) 40.5 - [facility] 48.5 % [facility] LABORATORY MCV 91.9 82.9 - [facility] 93[facility]1 [facility] LABORATORY MCH 28.8 27.5 - [facility] 32.1 pg [facility] LABORATORY MCHC 31.3 (L) 32.0 - [facility] 35.7 gm/dL [facility] LABORATORY Platelets 234 145 - 357 [facility] x10(3)/[facility] LABORATORY RDWSD 54.0 (H) 36.0 - [facility] SU 45.0 [facility] LABORATORY RDWCV 16.2 (H) 11.4 - [facility] SU 13.8 % [facility] LABORATORY MPV 8.7 7.6 - 12.9 [facility] LABORATORY nRBC % Auto 0.0 % [facility] LABORATORY nRBC Abs Auto 0.000 0.000 - [facility] SU 0.000 [facility] x10(3)/[facility] LABORATORY Specimen Anatomical Collection Method Collection Time Receive d Time (Source) Location / / Volume Laterality Blood specimen 08/09/2017 1:10 AM 018 1:19 (specimen) EST AM EST Resulting Agency Comment Spec In Lab Yonathan Smith MD HEMATOLOGY ORDERABLES Performing Organization Address City/[facility]/ZIP [place] [address] (ABNORMAL) Prothrombin Time (08/09/2017 [...] Smith MD HEMATOLOGY ORDERABLES Performing Organization Address City/[facility]/ZIP [place] [address] (ABNORMAL) Basic Metabolic Panel (non-fasting) (08/09/2017 1:10 AM EST) P athologist Signature Glucose Lvl 108 65 - 199 [facility] mg/dL [facility] [...] or in patients with acute kidney failure. [email or web address] [email or web address] Specimen Anatomical Collection Method Collection Time Receive d Time (Source) Location / / Volume Laterality Blood specimen 08/09/2017 1:10 AM 018 1:19 (specimen) EST AM EST Resulting Agency Comment Spec In Lab Yonathan Smith MD CHEMISTRY ORDERABLES Performing Organization Address City/State/ZIP Code Phon e Number [address] POCT Glucose (08/09/2017 12:05 AM EST) athologist Signature POC Glucose 128 65 - 199 [facility] mg/dL [facility] [...] [facility]/ZIP [place] [address] (ABNORMAL) POCT Glucose (08/08/2017 7:36 PM EST) athologist Signature POC Glucose 215 (H) 65 - 199 [facility] Address City/State/ZIP [place] [address] (ABNORMAL) POCT Glucose (08/08/2017 6:23 PM EST) P athologist Signature POC Glucose 216 (H) 65 - 199 [facility] [...] [facility]/ZIP [place] [address] (ABNORMAL) APTT (08/08/2017 6:00 PM EST) P athologist Signature PTT 97 (H) 25 - [...] Smith MD HEMATOLOGY ORDERABLES Performing Organization Address City[facility]/ZIP [place] [address] POCT Glucose (08/08/2017 4:42 PM EST) athologist Signature POC Glucose 78 65 - 199 [facility] [...] Address City/State/ZIP [place] [address] (ABNORMAL) POCT Glucose (08/08/2017 4:01 PM EST) athologist Signature POC Glucose 58 (L) 65 - 199 [facility]/dL [facility] [...] Address City/State/ZIP [place] [address] POCT Glucose (08/08/2017 11:51 AM EST) athologist Signature POC Glucose 90 65 - 199 [facility]dL [facility] [...] Address City/State/ZIP [place] [address] (ABNORMAL) APTT (08/08/2017 10:27 [...] Address City/State/ZIP Code Phon e Number [address] POCT Glucose (08/08/2017 8:02 AM EST) athologist Signature POC Glucose 178 65 - 199 [facility] mg/dL [facility] [...] [facility]/ZIP [place] [address] (ABNORMAL) APTT (08/08/2017 4:51 AM EST) athologist Signature PTT >160 25 - 35 [facility] (Critical) sec [facility] [...] Organization Address City/State/[place] [address] (ABNORMAL) Differential, Automated (08/08/2017 4:51 AM EST) [facility] gist Method Time Signature Neutrophils % 77.9 % [facility] LABORATORY Neutr Abs (ANC) 8.17 (H) 1.70 - [facility] 6.10 [facility] x10(3)/[facility] LABORATORY Lymphocytes % 10.3 % [facility] LABORATORY Lymphocytes Abs 1.1 0.9 - 3.2 [facility] x10(3)/[facility] LABORATORY Monocytes % 7.0 % [facility] LABORATORY Monocyte Abs 0.7 0.3 - 0.9 [facility] x10(3)/[facility] LABORATORY Eosinophils % 3.6 % [facility] LABORATORY Eosinophils Abs 0.4 0.0 - 0.4 [facility] x10(3)/[facility] LABORATORY Basophils % 0.5 % [facility] LABORATORY Basophils Abs 0.0 0.0 - 0.1 [facility] x10(3)/[facility] LABORATORY Immature Gran % 0.70 % [facility] [...] Address City/State/ZIP [place] [address] (ABNORMAL) Hemogram (08/08/2017 4:51 AM EST) Analysis Performed At Patho logist Time Signature WBC 10.5 (H) 4.0 - 9.5 [facility] LABORATORY RBC 3.27 (L) 4.58 - [facility] 5.54 [facility] x10(6)/[facility] LABORATORY Hemoglobin 9.3 (L) 13.7 - [facility] 16.5 gm/dL [facility] LABORATORY Hematocrit 30.3 (L) 40.5 - [facility] 48.5 % [facility] LABORATORY MCV 92.7 82.9 - [facility] 93[facility]1 [facility] LABORATORY MCH 28.4 27.5 - [facility] 32.1 pg [facility] LABORATORY MCHC 30.7 (L) 32.0 - [facility] 35.7 gm/dL [facility] LABORATORY Platelets 252 145 - 357 [facility] x10(3)/[facility] LABORATORY RDWSD 54.6 (H) 36.0 - [facility] 45.0 [facility] LABORATORY RDWCV 16.2 (H) 11.4 - [facility] 13.8 % [facility] LABORATORY MPV 9.1 7.6 - 12.9 [facility] LABORATORY nRBC % Auto 0.0 % [facility] LABORATORY nRBC Abs Auto 0.000 0.000 - [facility] 0.000 [facility] x10(3)/[facility] LABORATORY Specimen Anatomical Collection Method Collection Time Receive d Time (Source) Location / / Volume Laterality Blood specimen 08/08/2017 4:51 AM 018 5:14 (specimen) EST AM EST Resulting Agency Comment Spec In Lab Yonathan Smith MD HEMATOLOGY ORDERABLES Performing Organization Address City/State/ZIP [place] [address] (ABNORMAL) Prothrombin Time (08/08/2017 [...] Organization Address City/State/[place] [address] (ABNORMAL) Basic Metabolic Panel (non-fasting) (08/08/2017 4:51 AM EST) athologist Signature Glucose Lvl 229 (H) 65 - 199 [facility] mg/dL [facility] [...] or in patients with acute kidney failure. [email or web address] [email or web address] Specimen Anatomical Collection Method Collection Time Receive d Time (Source) Location / / Volume Laterality Blood specimen 08/08/2017 4:51 AM 018 5:14 (specimen) EST AM EST Resulting Agency Comment Spec In Lab Yonathan Smith MD CHEMISTRY ORDERABLES Performing Organization Address [facility]/ZIP Code Phon e Number [address] POCT Glucose (08/08/2017 4:20 AM EST) athologist Signature POC Glucose 193 65 - 199 [facility] mg/dL [facility] [...] Address City/State/ZIP Code Phon e Number [address] POCT Glucose (08/07/2017 11:11 PM EST) athologist Signature POC Glucose 124 65 - 199 [facility] mg/dL [facility] [...] [facility]/ZIP [place] [address] (ABNORMAL) APTT (08/07/2017 10:18 [...] Smith MD HEMATOLOGY ORDERABLES Performing Organization Address City/[facility]/ZIP [place] [address] POCT Glucose (08/07/2017 8:10 PM EST) athologist Signature POC Glucose 140 65 - 199 [facility] mg/dL [facility] [...] City[facility]/ZIP Code [place] [address] POCT Glucose (08/07/2017 5:27 PM EST) athologist Signature POC Glucose 187 65 - 199 [facility] mg/dL [facility] [...] City/[facility]/ZIP Code [place] [address] POCT Glucose (08/07/2017 3:29 PM EST) athologist Signature POC Glucose 86 65 - 199 [facility] [...] S Performing Organization Address [facility]/ZIP [facility] [place] [address] (ABNORMAL) APTT (08/07/2017 2:50 [...] Smith MD HEMATOLOGY ORDERABLES Performing Organization Address City/[facility]/ZIP [facility] Phon e Number [address] (ABNORMAL) POCT Glucose (08/07/2017 2:23 PM EST) athologist Signature POC Glucose 55 (L) 65 - 199 [facility] mg/dL [facility] [...] Address City/State/ZIP Code Phon e Number [address] POCT Glucose (08/07/2017 12:08 PM EST) P athologist Signature POC Glucose 77 65 - 199 [facility] mg/dL [facility] [...] Address City/State/ZIP Code Phon e Number [address] (ABNORMAL) Differential, Automated (08/07/2017 7:30 AM EST) Patholo gist Method Time Signature Neutrophils % 73.8 % [facility] LABORATORY Neutr Abs (ANC) 7.17 (H) 1.70 - [facility] 6.10 [facility] x10(3)/[facility] LABORATORY Lymphocytes % 12.2 % [facility] LABORATORY Lymphocytes Abs 1.2 0.9 - 3.2 [facility] x10(3)/[facility] LABORATORY Monocytes % 9.0 % [facility] LABORATORY Monocyte Abs 0.9 0.3 - 0.9 [facility] x10(3)/[facility] LABORATORY Eosinophils % 3.9 % [facility] LABORATORY Eosinophils Abs 0.4 0.0 - 0.4 [facility] x10(3)/[facility] LABORATORY Basophils % 0.6 % [facility] LABORATORY Basophils Abs 0.1 0.0 - 0.1 [facility] x10(3)/[facility] LABORATORY Immature Gran % 0.50 % [facility] [...] Organization Address City/State/Z[place] [address] (ABNORMAL) Hemogram (08/07/2017 7:30 AM EST) Analysis Performed At Patho logist Time Signature WBC 9.7 (H) 4.0 - 9.5 [facility] x10(3)/[facility] LABORATORY RBC 3.54 (L) 4.58 - [facility] 5.54 [facility] x10(6)/[facility] LABORATORY Hemoglobin 9.9 (L) 13.7 - [facility] 16.[facility] gm/dL [facility] LABORATORY Hematocrit 32.3 (L) 40.5 - [facility] 48.5 % [facility] LABORATORY MCV 91.2 82.9 - [facility] 93.1 [facility] LABORATORY MCH 28.0 27.5 - [facility] 32.1 pg [facility] LABORATORY MCHC 30.7 (L) 32.0 - [facility] 35.7 gm/dL [facility] LABORATORY Platelets 312 145 - 357 [facility] x10(3)/[facility] LABORATORY RDWSD 53.2 (H) 36.0 - [facility] 45.0 [facility] LABORATORY RDWCV 16.0 (H) 11.4 - [facility] 13.8 % [facility] LABORATORY MPV 8.9 7.6 - 12.9 [facility] LABORATORY nRBC % Auto 0.0 % [facility] LABORATORY nRBC Abs Auto 0.000 0.000 - [facility] 0.000 [facility] x10(3)/[facility] LABORATORY Specimen Anatomical Collection Method Collection Time Receive d Time (Source) Location / / Volume Laterality Blood specimen 08/07/2017 7:30 AM 018 7:45 (specimen) EST AM EST Resulting Agency Comment Spec In Lab Yonathan Smith MD HEMATOLOGY ORDERABLES Performing Organization Address City/State/Z[place] [address] (ABNORMAL) Basic Metabolic Panel (non-fasting) (08/07/2017 7:30 AM EST) P athologist Signature Glucose Lvl 80 65 - 199 [facility] mg/dL [facility] [...] or in patients with acute kidney failure. [email or web address] [email or web address] Specimen Anatomical Collection Method Collection Time Receive d Time (Source) Location / / Volume Laterality Blood specimen 08/07/2017 7:30 AM 018 7:45 (specimen) EST AM EST Resulting Agency Comment Spec In Lab Yonathan Smith MD CHEMISTRY ORDERABLES Performing Organization Address [facility] Phon e Number [address] POCT Glucose (08/07/2017 7:27 AM EST) athologist Signature POC Glucose 81 65 - 199 [facility] mg/dL [facility] [...] S Performing Organization Address [facility] Phon e Number [address] APTT (08/07/2017 7:04 AM [...] EST Resulting Agency Comment Spec In Lab Ynoathan Smith MD HEMATOLOGY ORDERABLES Performing Organization Address City/[facility]/ZIP [place] [address] (ABNORMAL) Prothrombin Time (08/07/2017 [...] Address City/State/ZIP [place] [address] POCT Glucose (08/07/2017 4:03 AM EST) athologist Signature POC Glucose 93 65 - 199 [facility]dL [facility] [...] Address City/State/ZIP [place] [address] POCT Glucose (08/07/2017 12:04 AM EST) athologist Signature POC Glucose 107 65 - 199 [facility] [...] Address City/State/ZIP Code Phon e Number [address] POCT Glucose (08/06/2017 7:56 PM EST) P athologist Signature POC Glucose 178 65 - 199 [facility] mg/dL [facility] [...] Address City/State/ZIP Code Phon e Number [address] TcPO2 (08/06/2017 2:32 PM EST) Component Value Ref Test Analysis Performed At Patholo gist Range Method Time Signature VB Text Department: Vascular Surgery Lab VASCUBASE Report Patient: [id number] (GREGORY HOANG) CPT: [id number] ICD10: I99.8 Referring Physician: YONATHAN SMITH ?? [...] at 1629, Until 08/16/17 at 1425, Low blo od sugar, For [...] CONTINUOUS, Starting on 08/07/17 at 0745, Until Wed08/10/17 at 1122, Begin [...] Intravenous, ONCE PRN, 1 dose, Starting on Tu08/10/17 at 0347, Until Wed08/10/17 at 0408, Pain, [...] Comment: BG [phone] (Given - Provider: Chiquis Mcgrath RN - Comment: BG 174)2008 (Given - Provider: Henrique Marks, VAMSI) 1199 (Not Given - Provider: Chiquis Mcgrath [...] Mcgrath RN) 08 (Given - Provider: Chiquis Mcgrath, VAMSI) 0800 [...] RN) 0506 (Given - Provider: Henrique Marks, RN)1715 (Given - Provider: Chiquis Mcgrath RN) [...] 0454 (Given - P rovider: Henrique Marks RN)0882 (Given - Provider: Chiquis Mcgrath RN)1135 (Given [...]
Routine documented in this encounter Care Teams Clubhouse Attendant Relationship Specialty Start Date End Date Lovely Vicente MD PCP - General 04/16/[address] [place] [address] [address] [place] [address] documented as of this encounter
--- OUTSIDE RECORDS SUMMARY | 2022-03-27 09:23 | XMS_ITS | Encounter Summary ---
:1945 Author Organization [facility] [place] [address] Care Team Providers Name Role Phone Lovely Vicente MD Primary Care Provider Reason for Visit Reason Comments Foot Ulcer WOUND CHECK Auth/Cert Specialty Diagnoses / Procedures Referred By Contact Refer red To Contact Diagnoses Critical lower limb ischemia CELLULITIS RT FOOT Procedures EMERGENCY Referral ID Status Reason Start Date Expiration Date Visits Requ ested Visits Authorized [id number] 1 1 Encounter Details Date Type Department Care Team Description 08/06/2017 [facility] ischemia [facility] [address] [place], [place] VASCULAR SURGERY [id number] [place] [address] [phone] Social History Tobacco Use Types Packs/Day Years [...] Smith MD - 08/06/2017 1:00 PM EST [facility] staff: 1. RIGHT leg CLI [...] Description 05/28/2022 Appointment Cardiology Zulma Dolan MD [facility] [address] [place], [place] [address] (Wo ) 05/28/2022 Laboratory Appointment Lab 05/28/2022 Office Visit Cardiology Zulma Dolan MD [facility] [place] [address] [facility] [place] [address] 06/10/2022 Office Visit Dermatology Laura Scherer MD [facility] ER [address] [place], [place] [address] (Wo rk) documented as of this encounter Visit Diagnoses Diagnosis Critical lower limb ischemia Unspecified circulatory system disorder documented in this encounter Care Teams Demurrage Man Relationship Specialty Start Date End Date Lovely Vicente MD PCP - General 04/16/[address] [place], [place] [address] documented as of this encounter
--- OUTSIDE RECORDS SUMMARY | 2022-03-27 09:23 | XMS_ITS | Encounter Summary ---
:1945 Author Organization [facility] [place] [address] Care Team Providers Name Role Phone Lovely Vicente MD Primary Care Provider Encounter Details Date Type Department Care Team Description 08/04/2017 Orders Only Cardiac Surgery Makayla Wilson APRN [facility] [place] [address] CARDIAC SURGERY [phone] [place], [place] [address] (Wo rk) Social History Tobacco [...] Zulma Dolan MD [facility] [place], [place] [address] (Wo rk) 05/28/2022 Laboratory Appointment Lab 05/28/2022 Office Visit Cardiology Zulma Dolan MD [facility] [place] [address] Liz Poole PA [facility] [place] [address] 06/10/2022 Office Visit Dermatology Laura Scherer MD [facility] ER DR [address] [place], [place] [address] (Wo rk) documented as of this encounter Visit Diagnoses Not on filedocumented in this encounter Care Teams Shaker Flatwork Relationship Specialty Start Date End Date Lovely Vicente MD PCP - General 04/16/[address] [place] [address] documented as of this encounter
--- OUTSIDE RECORDS SUMMARY | 2022-03-27 09:23 | XMS_ITS | Encounter Summary ---
:1945 [place] [address] Care Team Providers Name Role Phone Lovely Vicente MD Primary Care Provider Encounter Details Date Type Department Care Team Description 08/04/2017 Notes Only Cardiac Surgery Makayla Wilson APRN [facility] [place] [address] CARDIAC SURGERY [phone] [place], [place] [address] (Wo rk) Social History Tobacco [...] Appointment Cardiology Zulma Dolan MD [facility] [place], [place] [address] (Wo rk) 05/28/2022 Laboratory Appointment Lab 05/28/2022 Office Visit Cardiology Zulma Dolan MD [facility] [place] [address] Liz Poole PA [facility] [place] [address] 06/10/2022 Office Visit Dermatology Laura Scherer MD [facility] [address] [place], [place] [address] (Wo rk) documented as of this encounter Visit Diagnoses Not on filedocumented in this encounter Care Teams Collet Making Machine Operator Relationship Specialty Start Date End Date Lovely Vicente MD PCP - General 04/16/[address] [place] [address] documented as of this encounter
--- OUTSIDE RECORDS SUMMARY | 2022-03-27 09:23 | XMS_ITS | Encounter Summary ---
:1945 [place] [address] Care Team Providers Name Role Phone Lovely Vicente MD Primary Care Provider Encounter Details Date Type Department Care Team Description 08/05/2017 Notes Only Vascular Surgery at [facility] [place], [place] [facility] [place] [address] VASCULAR SURGERY [phone] [place], [place] [address] (Wo rk) Social History Tobacco [...] Description 05/28/2022 Appointment Cardiology Zulma Dolan MD [facility] [place], [place] [address] (Wo rk) 05/28/2022 Laboratory Appointment Lab 05/28/2022 Office Visit Cardiology Zulma Dolan MD [facility] [place] [address] Liz Poole PA [facility] [place] [address] 06/10/2022 Office Visit Dermatology Laura Scherer MD [facility] [address] [place], [place] [address] (Wo rk) documented as of this encounter Visit Diagnoses Not on filedocumented in this encounter Care Teams Glass Glazier Relationship Specialty Start Date End Date Lovely Vicente MD PCP - General 04/16/15 [facility] [address] [place] [address] documented as of this encounter
--- OUTSIDE RECORDS SUMMARY | 2022-03-27 09:23 | XMS_ITS | Encounter Summary ---
:1945 Author Organization [facility] [place] [address] Care Team Providers Name Role Phone Lovely Vicente MD Primary Care Provider Reason for Visit Auth/Cert Specialty Diagnoses / Procedures Referred By Contact Refer red To Contact Diagnoses Critical lower limb ischemia CELLULITIS RT FOOT Procedures EMERGENCY Referral ID Status Reason Start Date Expiration Date Visits Requ ested Visits Authorized [id number] 1 1 Encounter Details Date Type Department Care Team Description 08/09/2017 Surgery Main Operating Room Yonathan Smith AM PUTATION, Mary Hitchcock MD TRANSMETATARSAL ([facility] 12.71) [facility] DR Siddiqui [place] [address] [place] [address] [phone] Social History Tobacco Use Types Packs/Day Years [...] 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 [...] Dorsalis Pedis (Ankle) Artery ?132 ? 0.94 ??Stone-Biphasic ? Posterior Tibial (Ankle) Artery ??154 ? 1.10 ??Stone-Biphasic ? Fourth Toe ? 67 ?0.48 ?? [...] the foot. Discharge Conditions/Prognosis: Good Discharge to: [facility] Rehab Discharge Medications: Your Medications [...] For any problems or questions please call [phone] ZELDA Smith, grounds and nursery specialist Nurse Clinician For issues on weeknights after 5pm and weekends please call [phone] and ask for the Vascular Fellow subscription crew leader. General Instructions None Future Appointments and Orders Future Appointments Provider Department Dept Phone 08/26/2017 4:00 PM Aurelia Rivera PA Vascular Surgery at [place] [phone] 09/07/2017 3:00 PM LAB, THREE L Lab 3L [facility] [phone] 09/07/2017 4:00 PM Luz Prescott MD Endocrinology at [place] [phone] 09/09/2017 8:00 AM Barbra Soares APRN Pain Management at [place] [phone] Please bring a list of your current [...] For any problems or questions please call [phone] ZELDA Smith, grounds and nursery specialist Nurse Clinician For issues on weeknights after 5pm and weekends please call [phone] and ask for the Vascular Fellow subscription crew leader. documented in this encounter Medications [...] ([facility]) [address] [id number] Transportation: with (at bedside) Time of Discharge: by 12 noon Level of Care: swing Patient Aware: yes Family Notified: yes Md to call report to: Yissel Quintero AIDS COUNSELOR already called RN to call report to: [phone] Shirin Wolf Office of Care Management Pager [phone] Shirin Wolf RN - 08/16/2017 10:50 AM EST [facility] has offered pt swing bed. Pt and accept bed. will transport via car. AIDS COUNSELOR Yissel Quintero aware; d/c paperwork will be completed by 12 noon. [facility] requests pt arrival by 1400 today; AIDS COUNSELOR, RN, and family aware. AIDS COUNSELOR called [facility] and was told that they prefer pt to arrive with wound vac dressing applied but clamped. AIDS COUNSELOR applied new wound vac dressing. RN has [facility] number to call report. PASSR completed; AIDS COUNSELOR paged to request provider signature in highlighted space. Indigo from [facility] notified via email that home wound vac now cancelled; [facility] has picked up from room and order cancelled. Packet started and provided to community reinvestment act officer. Medicare important message explained to patient, patient signed. Copy provided to patient and signature page to OCM for inclusion in pt EMR. L Radha Powers Yoselin - 08/16/2017 10:34 AM EST Office of Care Management/Hypertrichologist Patient Name: Gregory Hoang : 1945 Patient has been offered a swing bed at [facility]. The patient will be transported by private transportation. No MD to MD report necessary Please call Nursing Report to [phone], ask for drip molder. Info to accompany patient: Narcotic Prescriptions Copies of Medication Administration Records and IV sheets for past 10 days. Plan: Hypertrichologist will be available to the patient and Window Covering Sales Consultant-RN and/or Cfo Controller for further assistance. Patient will be discharged to: [address] [id number] Radha Powers, Hypertrichologist Mira Truong, VAMSI - 08/15/2017 10:05 PM EST [address] Flores to ask if he wanted to hold metoprolol dose. BP 95/58. OK to hold this dose Courtney Brito - 08/15/2017 3:26 PM EST Office of Care Management(OCM)/Hypertrichologist(RS)/ D/C Planning re : Patient is medically ready for d/c today. RS has been in contact with [facility] to see if they could offer a bed. [facility] is still reviewing the case and need their MD to review chart prior to accepting or declining. OCM team needs to check in with [facility] tomorrow to check on status. 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 Smith had recommended . [...] rehab. Await recommendations from PT. Covering pager #[phone]. 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 Vice President Investor Relations Kaitlin Saha, RN Pager #[phone] Payam Rosales - 08/13/2017 2:37 PM EST Layout Man Encounter Note Patient Name: Gregory Hoang : [id number] MR#: [id number] Admit Date: 08/06/2017 1:41 PM Hospital Day 7 days Narrative: Visited to introduce and assess acceptance of [facility] Man services. Pt was awake, alert, oriented and in chair and family was there. Assessment:Patient coping positively with stresses of illness/hospitalization at this time. Pt says that he is hoping to get better and his family was there. Pt says that he has family care and supportand taking one day at time. Intervention and Outcome: Provided emotional support and encouraging presence. 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 A letter describing our affiliations was reviewed with them and theywere educated about their right to choose where referrals are placed. Patient requests referral to [facility] [employer]. PHONE: [phone] FAX: [phone]. And Home NPWT (Negative Pressure Wound Therapy) aka wound vac device made available to pt. Serial # confirmed. Reviewed [facility] Proof of Delivery/Assignment of Benefits Statement(POD/AOB) Form w patient or authorized agent signing on behalf of patient. Copy of POD/AOB provided to pt and other copy faxed to [employer] @ fax# [phone] Expected date of discharge: 08/12/2017. 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 Address: [address] [place] [address] [place] [address] (home) Mobile: Telephone Information: Referring Provider: No [...] SETUP performed by Manny Mcknight MD at [facility] MAIN OR ??? PRO CABG, ARTERIAL, SINGLE N/A 07/07/2017 @CABG, USING ARTERIAL GRAFT;SINGLE ARTERIAL GRAFT (WRVU 33.75) performed by Yuan Retana MD at [facility] MAIN OR ??? PRO CABG, ARTERY-VEIN, TWO N/A 07/07/2017 @CABG, TWO VENOUS GRAFTS & ARTERIAL GRAFT (WRVU 7.93) performed by Yuan Retana MD at [facility] MAIN OR ??? PRO COLONOSCOPY, REMV LESN, SNARE 01/16/2014 COLONOSCOPY, POLYPECTOMY, REMOVAL LESION BY SNARE performed by Nohemi Jaimes MD at [facility] ENDOSCOPY ??? PRO ENDOSCOPY W/VIDEO-ASST VEIN HARVEST, CABG Right 07/07/2017 ENDOSCOPIC HARVEST VEIN(S) FOR CABG (WRVU 0.31) performed by Yuan Retana MD at [facility] MAIN OR ??? 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 Heparin gtt continues to run. Pt [...] of : 1945 AGE 72 y.o. Address: [address] [place] [address] [place] [address] (home) Mobile: Telephone Information: Referring Provider: No [...] SETUP performed by Manny Mcknight MD at [facility] MAIN OR ??? PRO CABG, ARTERIAL, SINGLE N/A 07/07/2017 @CABG, USING ARTERIAL GRAFT;SINGLE ARTERIAL GRAFT (WRVU 33.75) performed by Yuan Retana MD at [facility] MAIN OR ??? PRO CABG, ARTERY-VEIN, TWO N/A 07/07/2017 @CABG, TWO VENOUS GRAFTS & ARTERIAL GRAFT (WRVU 7.93) performed by Yuan Retana MD at [facility] OR ??? PRO COLONOSCOPY, REMV LESN, SNARE 01/16/2014 COLONOSCOPY, POLYPECTOMY, REMOVAL LESION BY SNARE performed by Nohemi Jaimes MD at [facility] ENDOSCOPY ??? PRO ENDOSCOPY W/VIDEO-ASST VEIN HARVEST, CABG Right 07/07/2017 ENDOSCOPIC HARVEST VEIN(S) FOR CABG (WRVU 0.31) performed by Yuan Retana MD at [facility] MAIN OR ??? 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 Vascular resident subscription crew leader and will forward result to the team prior to rounds. 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 05.mg oxycodone given. 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 [...] SETUP performed by Manny Mcknight MD at [facility] MAIN OR ??? PRO CABG, ARTERIAL, SINGLE N/A 07/07/2017 @CABG, USING ARTERIAL GRAFT;SINGLE ARTERIAL GRAFT (WRVU 33.75) performed by Yuan Retana MD at [facility] MAIN OR ??? PRO CABG, ARTERY-VEIN, TWO N/A 07/07/2017 @CABG, TWO VENOUS GRAFTS & ARTERIAL GRAFT (WRVU 7.93) performed by Yuan Retana MD at [facility] MAIN OR ??? PRO COLONOSCOPY, REMV LESN, SNARE 01/16/2014 COLONOSCOPY, POLYPECTOMY, REMOVAL LESION BY SNARE performed by Nohemi Jaimes MD at [facility] ENDOSCOPY ??? PRO ENDOSCOPY W/VIDEO-ASST VEIN HARVEST, CABG Right 07/07/2017 ENDOSCOPIC HARVEST VEIN(S) FOR CABG (WRVU 0.31) performed by Yuan Retana MD at [facility] MAIN OR ??? PRO THYROIDECTOMY 03/28/2013 THYROIDECTOMY, TOTAL OR COMPLETE performed by Manny Mcknight MD at [facility] MAIN OR Functional Status/Social Hx: Quit [...] left blue toes with CTA showing R BARGE WORKER pseudoaneurysm (now thrombosed) and occluded ATs [...] 2.5x80 5. Completion RLE angiogram 6. L BARGE WORKER angiogram 7. 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 - L BARGE WORKER angriogram demonstrated: High femoral bifurcation over the proximal half of the femoral head. L BARGE WORKER access in the distal L BARGE WORKER. - Closure device: Mynx Technical Procedure: [...] for a 45cm 5F Destination. V18 and [place] and QuickCross catheters were used to select [...] 5F. A stationed picture of the L BARGE WORKER was performed as the patient was noted to have a very high bifurcation. Access appeared in the distal R BARGE WORKER. Closure and sheath removal was performed [...] PM EST 1440 report called to 5 [facility] nurse Tessa RN documented in this encounter [...] with pt and pt's spouse. Discharge to [facility]. Goal: Individualization & Mutuality Outcome: [...] sit/sit to supine -- Bed Mobility Goal, Hodgeman Level independent -- Bed Mobility Goal, Date [...] days -- Transfer Training Goal, Activity Type hgx-rn-trqsj/qubkm-bi-pxe -- Transfer Train Goal, Hodgeman Level conditional independence -- Transfer Train Goal, [...] call cabello within reach, Hourly rounding by RN/REMARKETING REP. Bed alarm / Chair alarm. Patient-specific [...] Smith MD - 08/15/2017 6:28 PM EST [facility] Operative Note Patient Name: Gregory Hoang : [id number] MR#: [id number] Case Date: 08/09/2017 Surgeon: Surgeon(s) and Role: [...] 2.5x80 5. Completion RLE angiogram 6. L BARGE WORKER angiogram 7. Mynx closure Precautions/Restrictions: fall, [...] other (see comments) (or swing bed) Pager: [phone] BASSAM ELIAS, PT 08/14/2017 Inpatient Physical Therapy [...] to Achieve by discharge Gait Training Goal, Hodgeman Level conditional independence;set up required Gait Training [...] these facilities over the weekend except for [facility]. CM spoke with [facility] CM Drea Sandhu, VAMSI who said that they do not anticipate any beds over the weekend. Reviewed with patient/ that they need to be aware that patient will need to take the first bed offered at the facilities that they make referrals to. Their choices are: 1- [facility] PHONE: [phone] FAX: [phone] 2- [facility] ([facility]) [address] [place] [address] 3- [facility])([facility]) [address] [place] [address] I have discussed Medicare/Private Insurance [...] RS/CM on Wednesday to follow-up. Covering pager #[phone] for today. Plan of Care - Henrique [...] with additional findings of pseudoaneurysm on R BARGE WORKER and bilateral anterior tibial artery occlusions. [...] an outpatient once discharged. Have patient call [phone] to set up an appointment. Follow-up: Dermatology will sign-off for now. Please do not hesitate to contact us if you have any questions orconcerns. Impression and Recommendations discussed with primary team on 08/13/2017. Karo Henderson MD Resident in Dermatology Section of Dermatology, Department of Surgery [facility] Pager [phone] Patient seen and evaluated with staff Import Export Coordinator: Halima Cordero MD Section of Dermatology [facility] Level of Resident Supervision: [...] Outcome: Ongoing (Interventions Implemented as Appropriate) 08/12/17 4146 Coping/Psychosocial Plan Of Care Reviewed With patient;spouse [...] 2.5x80 5. Completion RLE angiogram 6. L BARGE WORKER angiogram 7. Mynx closure Active Non-Hospital [...] home with home health ([facility] PT[facility]OT) Pager: [phone] YASIR TELLO OT 08/12/2017 Occupational Therapy Rehabilitation [...] 2.5x80 5. Completion RLE angiogram 6. L BARGE WORKER angiogram 7. Mynx closure Past Medical [...] with 24/7 assistance and maximal services) Pager: [phone] NICHOLAS MORA, PT 08/12/2017 Physical Therapy Rehabilitation [...] sit/sit to supine -- Bed Mobility Goal, Hodgeman Level independent -- Bed Mobility Goal, Outcome Achieved -- goal ongoing Goal: Gait Training Goal Stand Alone Therapy Goal Outcome: Ongoing (Interventions Implemented as Appropriate) 08/11/17 1310 08/12/17 1510 Gait Training Goal Gait Training Goal, Date Established 08/11/17 -- Gait Training Goal, Time to Achieve 5 - 7 days -- Gait Training Goal, Hodgeman Level conditional independence -- Gait Training Goal, [...] days -- Transfer Training Goal, Activity Type tbf-fp-kkluf/lslaq-qq-usa -- Transfer Train Goal, Hodgeman Level conditional independence -- Transfer Training Goal, [...] Smith MD - 08/11/2017 2:52 PM EST [facility] Operative Note Patient Name: Gregory Hoang : [id number] MR#: [id number] Case Date: 08/11/2017 Surgeon: Surgeon(s) and Role: [...] 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 Completion RLE angiogram 6. L BARGE WORKER angiogram 7. Mynx closure He is [...] Anticipated Discharge Disposition: inpatient rehabilitation facility Pager: [phone] LAWRENCE GONZALEZ, PT 08/11/2017 Physical Therapy Rehabilitation [...] to sit/sit to supine Bed Mobility Goal, Hodgeman Level independent Goal: Gait Training Goal Stand Alone Therapy Goal Outcome: Ongoing (Interventions Implemented as Appropriate) 08/11/17 1310 Gait Training Goal Gait Training Goal, Date Established 08/11/17 Gait Training Goal, Time to Achieve 5 - 7 days Gait Training Goal, Hodgeman Level conditional independence Gait Training Goal, Assist [...] 7 days Transfer Training Goal, Activity Type fhf-cv-scgpe/obtfx-wd-puk Transfer Train Goal, Hodgeman Level conditional independence Plan of David DelloAnnetta [...] call cabello within reach, Hourly rounding by RN/REMARKETING REP. Bed alarm / Chair alarm. ? [...] Within the Past 30 Days: [facility] 07/20/2017 Anticipated Length Of Stay (If known): Expected Length of Hospitalization: 5-7 days2-3 days Current Decision-Making Capacity: Alert and oriented x 4 Advance Care Planning: on file Kisha Hoang [facility] [phone] Current Coping/Education/Information Needs: pt and spouse state [...] Health/Prescription Coverage: Primary Insurance: MEDICARE Secondary Insurance: [email or web address] [place] Prescription Coverage: See above Preferred Pharmacy: [facility] Other: N/A Primary Care Provider: Lovely Vicente MD [phone] Patient/Caregiver Goals of Treatment: Patient plans to [...] of care planning. Kaitlin Saha RN Pager: [phone] Plan of Care - Melba Jaramillo RN [...] Overview Goal: Plan of Care Review 08/08/17 9184 Coping/Psychosocial Plan Of Care Reviewed With patient [...] call cabello within reach, Hourly rounding by RN/REMARKETING REP. Bed alarm / Chair alarm. Patient-specific fall prevention interventions for sensory deficits provided, if applicable: [X] Yes CPG GOAL OUTCOME EVALUATION: Goal: Fall Prevention-Safe Patient Handling Outcome: Ongoing (Interventions Implemented as Appropriate) 08/06/17 1700 08/06/17199908/07/17 9294 Positioning Body Position -- up in chair [...] at bedside and MD TEAM Carrying pager [phone] contacted (via Radio page) and notified of [...] Zulma Dolan MD [facility] [place], [place] [address] (Wo rk) 05/28/2022 Laboratory Appointment Lab 05/28/2022 Office Visit Cardiology Zulma Dolan MD [facility] [place] [address] Liz Poole PA [facility] [place] [address] 06/10/2022 Office Visit Dermatology Laura Scherer MD [facility] [address] [place], [place] [address] (Wo rk) documented as of [...] section. TYPE AND SCREEN Routine 08/09/2017 1:10 ([facility]/CGP/SHANDA) AM EST BASIC METABOLIC PANEL Routine 08/09/2017 [...] POC Glucose 160 65 - 199 [facility] mg/dL [facility] [...] Organization Address City/State/ZIP [place] [address] [facility] [address] (ABNORMAL) Differential, Automated (08/16/2017 5:08 AM EST) [facility] Method Time Signature Neutrophils % 73.9 % [facility] Neutr Abs (ANC) 5.37 1.70 - [facility] 6.10 [facility] x10(3)/[facility] LABORATORY Lymphocytes % 10.1 % [facility] Lymphocytes Abs 0.7 (L) 0.9 - 3.2 [facility] x10(3)/[facility] LABORATORY Monocytes % 10.1 % [facility] Monocyte Abs 0.7 0.3 - 0.9 [facility] x10(3)/[facility] LABORATORY Eosinophils % 5.1 % [facility] Eosinophils Abs 0.4 0.0 - 0.4 [facility] x10(3)/[facility] LABORATORY Basophils % 0.4 % [facility] Basophils Abs 0.0 0.0 - 0.1 [facility] x10(3)/[facility] LABORATORY Immature Gran % 0.40 % [...] Gran Abs 0.03 0.00 - 0.04 x10(3)/[facility] Y [facility] Specimen Anatomical Collection Method Collection Time Receive d Time (Source) Location / / Volume Laterality Blood specimen 08/16/2017 5:08 AM 018 5:20 (specimen) EST AM EST Resulting Agency Comment Spec In Lab Yonathan Smith MD HEMATOLOGY ORDERABLES Performing Organization Address City/State/ZIP [place] [address] [facility] (ABNORMAL) Hemogram (08/16/2017 5:08 AM EST) Analysis Performed At Patho logist Time Signature WBC 7.3 4.0 - 9.5 [facility] x10(3)/[facility] LABORATORY RBC 3.36 (L) 4.58 - [facility] 5.54 [facility] x10(6)/[facility] LABORATORY Hemoglobin 9.7 (L) 13.7 - [facility] 16.5 gm/dL [facility] LABORATORY Hematocrit 30.3 (L) 40.5 - [facility] 48.5 % [facility] LABORATORY MCV 90.2 82.9 - [facility] 93.[address] [facility] LABORATORY MCH 28.9 27.5 - [facility] 32.1 pg [facility] LABORATORY MCHC 32.0 32.0 - [facility] 35.7 gm/dL [facility] LABORATORY Platelets 282 145 - 357 [facility] x10(3)/[facility] LABORATORY RDWSD 53.9 (H) 36.0 - [facility] 45.[address] [facility] LABORATORY RDWCV 16.5 (H) 11.4 - [facility] 13.8 % [facility] LABORATORY MPV 9.0 7.6 - 12.9 [facility] LABORATORY nRBC % Auto 0.0 % [facility] LABORATORY nRBC Abs Auto 0.000 0.000 - [facility] 0.000 [facility] x10(3)/[facility] LABORATORY Specimen Anatomical Collection Method Collection Time Receive d Time (Source) Location / / Volume Laterality Blood specimen 08/16/2017 5:08 AM 018 5:20 (specimen) EST AM EST Resulting Agency Comment Spec In Lab Yonathan Smith MD HEMATOLOGY ORDERABLES Performing Organization Address City/State/ZIP [place] [address] (ABNORMAL) Basic Metabolic Panel (non-fasting) (08/16/2017 5:08 AM EST) P athologist Signature Glucose Lvl 141 65 - 199 [facility] mg/dL [facility] Comment: Diabetes: >=200 mg/dL plus symp toms BUN 29 (H) 10 - 20 mg/dL [facility] Creatinine 1.25 0.80 - 1.50 [...] Chloride 99 98 - 107 mmol/L [facility] CO2 28 22 - 31 mmol/L [facility] Anion Gap 13 5 - 15 mmol/L [facility] Calcium 8.7 8.5 - 10.5 mg/dL [facility] Estimated GFR 57 (L) >=60 [facility] Comment: The reported eGFR should be multiplied b y 1.2 for patients. The MDRD is not an appropriate measure o f renal function for patients with body mass extremes or in patients with acute kidney failure. http://Augure/DHnkdep [email or web address]/DHMCnkf Specimen Anatomical Collection Method Collection Time Receive d Time (Source) Location / / Volume Laterality Blood specimen 08/16/2017 5:08 AM 018 5:20 (specimen) EST AM EST Resulting Agency Comment Spec In Lab Yonathan Smith MD CHEMISTRY ORDERABLES Performing Organization Address City/State/[place] [address] (ABNORMAL) Prothrombin Time (08/16/2017 5:08 AM EST) athologist Signature PT 25.2 (H) 11.8 - 14.0 [facility] LABORATORY INR 2.3 (H) 0.9 - 1.1 [facility] Smith MD HEMATOLOGY ORDERABLES Performing Organization Address City/[facility]/ZIP Code Phon e Number [address] POCT Glucose (08/16/2017 4:09 AM EST) athologist Signature POC Glucose 147 65 - 199 [facility] mg/dL [facility] Comment: Supplemental ranges: <140 mg/dL before meals <180 mg/dL all other times of the day Specimen Anatomical Collection Method Collection Time Receive d Time (Source) Location / / Volume Laterality Blood specimen 08/16/2017 4:09 AM 018 4:09 (specimen) EST AM EST Yonathan Smith MD POINT OF CARE TEST ORDERABLE S Performing Organization Address City/[facility]/ZIP Code Phon e Number [address] POCT Glucose (08/15/2017 11:56 PM EST) athologist Signature POC Glucose 176 65 - 199 [facility] mg/dL [facility] Comment: Supplemental ranges: <140 mg/dL before meals <180 mg/dL all other times of the day Specimen Anatomical Collection Method Collection Time Receive d Time (Source) Location / / Volume Laterality Blood specimen 08/15/2017 11:56 8 (specimen) PM EST 11:56 PM EST Yonathan Smith MD POINT OF CARE TEST ORDERABLE S Performing Organization Address City/[facility]/ZIP Code Phon e Number [address] POCT Glucose (08/15/2017 8:05 PM EST) athologist Signature POC Glucose 136 65 - 199 [facility] mg/dL [facility] [...] Organization Address City/State/[place] [address] (ABNORMAL) POCT Glucose (08/15/2017 4:50 PM EST) athologist Signature POC Glucose 232 (H) 65 - 199 [facility] mg/dL [facility] [...] Organization Address City/State/[place] [address] POCT Glucose (08/15/2017 12:04 PM EST) athologist Signature POC Glucose 135 65 - 199 [facility] mg/dL [facility] [...] Organization Address City/State/[place] [address] POCT Glucose (08/15/2017 7:36 AM EST) athologist Signature POC Glucose 124 65 - 199 [facility] mg/dL [facility] [...] Organization Address City/State/ZIP [place] [address] (ABNORMAL) Differential, Automated (08/15/2017 6:22 AM EST) [facility] Method Time Signature Neutrophils % 76.1 % [facility] Neutr Abs (ANC) 6.62 (H) 1.70 - [facility] 6.10 [facility] x10(3)/[facility] LABORATORY Lymphocytes % 9.3 % [facility] Lymphocytes Abs 0.8 (L) 0.9 - 3.2 [facility] x10(3)/[facility] LABORATORY Monocytes % 9.4 % [facility] Monocyte Abs 0.8 0.3 - 0.9 [facility] x10(3)/[facility] LABORATORY Eosinophils % 4.0 % [facility] Eosinophils Abs 0.4 0.0 - 0.4 [facility] x10(3)/[facility] LABORATORY Basophils % 0.6 % [facility] Basophils Abs 0.0 0.0 - 0.1 [facility] x10(3)/[facility] LABORATORY Immature Gran % 0.60 % [facility] [...] Gran Abs 0.05 (H) 0.00 - 0.04 x10(3)/[facility] LABORATORY Specimen Anatomical Collection Method Collection Time Receive d Time (Source) Location / / Volume Laterality Blood specimen 08/15/2017 6:22 AM 018 6:33 (specimen) EST AM EST Resulting Agency Comment Spec In Lab Yonathan Smith MD HEMATOLOGY ORDERABLES Performing Organization Address City/[facility]/ZIP Code Phon e Number [address] (ABNORMAL) Hemogram (08/15/2017 6:22 AM EST) Analysis Performed At Patho logist Time Signature WBC 8.7 4.0 - 9.5 [facility](3[facility] LABORATORY RBC 3.21 (L) 4.58 - [facility] 5.54 [facility] x10(6)/[facility] LABORATORY Hemoglobin 9.1 (L) 13.7 - [facility] 16.5 gm/dL [facility] Hematocrit 29.0 (L) 40.5 - [facility] 48.5 % [facility] MCV 90.3 82.9 - [facility] [address] [facility]ORY MCH 28.3 27.5 - [facility] 32.1 pg [facility] MCHC 31.4 (L) 32.0 - [facility] 35.7 gm/dL [facility] Platelets 254 145 - 357 [facility] x10(3)/[facility] LABORATORY RDWSD 53.9 (H) 36.0 - [facility] [address] [facility] LABORATORY RDWCV 16.3 (H) 11.4 - [facility] 13.8 % [facility] MPV 8.8 7.6 - 12.9 [facility] LABORATORY nRBC % Auto 0.0 % [facility] nRBC Abs Auto 0.000 0.000 - [facility] 0.000 [facility] x10(3)/[facility] LABORATORY Specimen Anatomical Collection Method Collection Time Receive d Time (Source) Location / / Volume Laterality Blood specimen 08/15/2017 6:22 AM 018 6:33 (specimen) EST AM EST Resulting Agency Comment Spec In Lab Yonathan Smith MD HEMATOLOGY ORDERABLES Performing Organization Address City/State/ZIP Code Phon e Number [facility] [place] [address] (ABNORMAL) Basic Metabolic Panel (non-fasting) (08/15/2017 6:22 AM EST) P athologist Signature Glucose Lvl 118 65 - 199 [facility] mg/dL [facility] mmol/L [facility] Calcium 8.8 8.5 - 10.5 mg/dL [facility] Estimated GFR >60 >=60 [facility] Comment: The reported eGFR should be multiplied b y 1.2 for patients. The MDRD is not an appropriate measure o f renal function for patients with body mass extremes or in patients with acute kidney failure. http://[employer]/DHnkdep http://[employer]/DHMCnkf Specimen Anatomical Collection Method Collection Time Receive d Time (Source) Location / / Volume Laterality Blood specimen 08/15/2017 6:22 AM 018 6:33 (specimen) EST AM EST Resulting Agency Comment Spec In Lab Yonathan Smith MD CHEMISTRY ORDERABLES Performing Organization Address City/State/ZIP Code Phon e Number [address] (ABNORMAL) Prothrombin Time (08/15/2017 6:22 AM EST) athologist Signature PT 21.9 (H) 11.8 - 14.0 [facility] LABORATORY INR 1.9 (H) 0.9 - 1.1 [facility] [...] Address City/State/ZIP Code Phon e Number [address] POCT Glucose (08/15/2017 4:33 AM EST) athologist Signature POC Glucose 164 65 - 199 [facility]dL [facility] [...] Address City/State/ZIP Code Phon e Number [address] POCT Glucose (08/15/2017 12:12 AM EST) athologist Signature POC Glucose 89 65 - 199 [facility]dL [facility] [...] Address City/State/ZIP Code Phon e Number [address] (ABNORMAL) POCT Glucose (08/14/2017 8:07 PM EST) athologist Signature POC Glucose 204 (H) 65 - 199 [facility] mg/dL [facility] Comment: Supplemental ranges: <140 mg/dL before meals <180 mg/dL all other times of the day Specimen Anatomical Collection Method Collection Time Receive d Time (Source) Location / / Volume Laterality Blood specimen 08/14/2017 8:07 PM 018 8:07 (specimen) EST PM EST Yonathan Smith MD POINT OF CARE TEST ORDERABLE S Performing Organization Address City/[facility]/[place] [address] POCT Glucose (08/14/2017 5:11 PM EST) athologist Signature POC Glucose 174 65 - 199 [facility] mg/dL [facility] [...] Organization Address City/State/[place] [address] POCT Glucose (08/14/2017 12:10 PM EST) athologist Signature POC Glucose 141 65 - 199 [facility] mg/dL [facility] [...] Address City/State/ZIP Code Phon e Number [address] POCT Glucose (08/14/2017 8:07 AM EST) P athologist Signature POC Glucose 158 65 - 199 [facility] mg/dL [facility] [...] Address City/State/ZIP Code Phon e Number [address] (ABNORMAL) Differential, Automated (08/14/2017 4:52 AM EST) Patholo gist Method Time Signature Neutrophils % 78.6 % [facility] Neutr Abs (ANC) 7.70 (H) 1.70 - [facility] 6.10 [facility] x10(3)/[facility] LABORATORY Lymphocytes % 7.8 % [facility] Lymphocytes Abs 0.8 (L) 0.9 - 3.2 [facility] x10(3)/[facility] LABORATORY Monocytes % 8.8 % [facility] Monocyte Abs 0.9 0.3 - 0.9 [facility] x10(3)/[facility] LABORATORY Eosinophils % 4.0 % [facility] Eosinophils Abs 0.4 0.0 - 0.4 [facility] x10(3)/[facility] LABORATORY Basophils % 0.5 % [facility] Basophils Abs 0.0 0.0 - 0.1 [facility] x10(3)/[facility] LABORATORY Immature Gran % 0.30 % [facility] [...] Gran Abs 0.03 0.00 - 0.04 x10(3)/[facility] Specimen Anatomical Collection Method Collection Time Receive d Time (Source) Location / / Volume Laterality Blood specimen 08/14/2017 4:52 AM 018 5:08 (specimen) EST AM EST Resulting Agency Comment Spec In Lab Yonathan Smith MD HEMATOLOGY ORDERABLES Performing Organization Address City/State/[place] [address] (ABNORMAL) Hemogram (08/14/2017 4:52 AM EST) Analysis Performed At Patho logist Time Signature WBC 9.8 (H) 4.0 - 9.5 [facility] x10(3)/[facility] LABORATORY RBC 3.32 (L) 4.58 - [facility] 5.54 [facility] x10(6)/[facility] LABORATORY Hemoglobin 9.5 (L) 13.7 - [facility] 16.5 gm/dL [facility] Hematocrit 30.3 (L) 40.5 - [facility] 48.5 % [facility] MCV 91.3 82.9 - [facility] [address] [facility] LABORATORY MCH 28.6 27.5 - [facility] 32.1 pg [facility] MCHC 31.4 (L) 32.0 - [facility] 35.7 gm/dL [facility] Platelets 263 145 - 357 [facility] x10(3)/[facility] LABORATORY RDWSD 54.8 (H) 36.0 - [facility] [address] [facility] LABORATORY RDWCV 16.5 (H) 11.4 - [facility] 13.8 % [facility] MPV 9.1 7.6 - 12.9 [facility] LABORATORY nRBC % Auto 0.0 % [facility] nRBC Abs Auto 0.000 0.000 - [facility] 0.000 [facility] x10(3)/[facility] LABORATORY Specimen Anatomical Collection Method Collection Time Receive d Time (Source) Location / / Volume Laterality Blood specimen 08/14/2017 4:52 AM 018 5:08 (specimen) EST AM EST Resulting Agency Comment Spec In Lab Yonathan Smith MD HEMATOLOGY ORDERABLES Performing Organization Address City/[facility]/[place] [address] (ABNORMAL) Prothrombin Time (08/14/2017 [...] Smith MD HEMATOLOGY ORDERABLES Performing Organization Address City/[facility]/[place] [address] (ABNORMAL) Basic Metabolic Panel (non-fasting) (08/14/2017 4:52 AM EST) athologist Signature Glucose Lvl 135 65 - 199 [facility] mg/dL [facility] Comment: Diabetes: >=200 mg/dL plus symp toms BUN 25 (H) 10 - 20 mg/dL [facility] Creatinine 1.36 0.80 - 1.50 [...] LABORATORY Estimated GFR 52 (L) >=60 [facility] Comment: The reported eGFR should be multiplied b y 1.2 for patients. The MDRD is not an appropriate measure o f renal function for patients with body mass extremes or in patients with acute kidney failure. http://[employer]/DHnkdep http://Aug[employer]/DHMCnkf Specimen Anatomical Collection Method Collection Time Receive d Time (Source) Location / / Volume Laterality Blood specimen 08/14/2017 4:52 AM 018 5:08 (specimen) EST AM EST Resulting Agency Comment Spec In Lab Yonathan Smith MD CHEMISTRY ORDERABLES Performing Organization Address City/[facility]/ZIP Code Phon e Number [address] POCT Glucose (08/14/2017 3:56 AM EST) P athologist Signature POC Glucose 135 65 - 199 [facility] mg/dL [facility] [...] TEST ORDERABLE S Performing Organization Address City/[facility]/[place] [address] POCT Glucose (08/13/2017 11:13 PM EST) athologist Signature POC Glucose 118 65 - 199 [facility] mg/dL [facility] Comment: Supplemental ranges: <140 mg/dL before meals <180 mg/dL all other times of the day Specimen Anatomical Collection Method Collection Time Receive d Time (Source) Location / / Volume Laterality Blood specimen 08/13/2017 11:13 8 (specimen) PM EST 11:13 PM EST Ynoathan Smith MD POINT OF CARE TEST ORDERABLE S Performing Organization Address City/State/[place] [address] (ABNORMAL) POCT Glucose (08/13/2017 8:08 PM EST) athologist Signature POC Glucose 204 (H) 65 - 199 [facility] [...] Organization Address City/State/[place] [address] POCT Glucose (08/13/2017 4:02 PM EST) athologist Signature POC Glucose 145 65 - 199 [facility] mg/dL [facility] [...] Organization Address City/State/[place] [address] POCT Glucose (08/13/2017 11:31 AM EST) athologist Signature POC Glucose 179 65 - 199 [facility] mg/dL [facility] Comment: Supplemental ranges: <140 mg/dL before meals <180 mg/dL all other times of the day Specimen Anatomical Collection Method Collection Time Receive d Time (Source) Location / / Volume Laterality Blood specimen 08/13/2017 11:31 8 (specimen) AM EST 11:31 AM EST Yonathan Smith MD POINT OF CARE TEST ORDERABLE S Performing Organization Address City/[facility]/[place] [address] (ABNORMAL) POCT Glucose (08/13/2017 10:16 AM EST) athologist Signature POC Glucose 211 (H) 65 - 199 [facility] mg/dL [facility] Comment: Supplemental ranges: <140 mg/dL before meals <180 mg/dL all other times of the day Specimen Anatomical Collection Method Collection Time Receive d Time (Source) Location / / Volume Laterality Blood specimen 08/13/2017 10:16 8 (specimen) AM EST 10:16 AM EST Yonathan Smith MD POINT OF CARE TEST ORDERABLE S Performing Organization Address City/[facility]/[place] [address] JULIAN, legs, multiple levels (08/13/2017 7:42 AM EST) Component Value Ref Test [facility] Method Time Signature VB Text Department: Vascular Surgery Lab VASCUBASE Report Patient: [id number] (GREGORY HOANG) CPT: 49525 ICD10: I99.8 Referring Physician: YONAHTAN SMITH ?? Indications: s/p R 1,2,3 toe amps with red left foot, need n ew baseline Diabetes mellitus: yes ICD10 Diagnosis Code: I99.8 Findings: Right ?Pressure (mm Hg) ?? JULIAN ??Waveform ?TBI ?? Brachial Artery ?138 ? Dorsalis Pedis (Ankle) Arter y ?132 ? 0.94 ??Stone- Biphasic ? Posterior Tibial (Ankle) Art anila ??154 ? 1.10 ??Stone-Biphasic ? Fourth Toe ? 67 ? 0.48 [...] Glucose 156 65 - 199 [facility] mg/dL [facility] [...] Organization Address City/State/Z[place] [address] (ABNORMAL) Differential, Automated (08/13/2017 5:33 AM EST) Patholo gist Method Time Signature Neutrophils % 77.8 % [facility] Neutr Abs (ANC) 7.83 (H) 1.70 - [facility] 6.10 [facility] x10(3)/[facility] LABORATORY Lymphocytes % 8.4 % [facility] Lymphocytes Abs 0.8 (L) 0.9 - 3.2 [facility] x10(3)/[facility] LABORATORY Monocytes % 8.3 % [facility] Monocyte Abs 0.8 0.3 - 0.9 [facility] x10(3)/[facility] LABORATORY Eosinophils % 4.6 % [facility] Eosinophils Abs 0.5 (H) 0.0 - 0.4 [facility] x10(3)/[facility] LABORATORY Basophils % 0.5 % [facility] Basophils Abs 0.0 0.0 - 0.1 [facility] x10(3)/[facility] LABORATORY Immature [...] Gran Abs 0.04 0.00 - 0.04 x10(3)/[facility] Specimen Anatomical Collection Method Collection Time Receive d Time (Source) Location / / Volume Laterality Blood specimen 08/13/2017 5:33 AM 018 6:04 (specimen) EST AM EST Resulting Agency Comment Spec In Lab Yonathan Smith MD HEMATOLOGY ORDERABLES Performing Organization Address City/State/ZIP Code Phon e Number [place] [id number] HOSPITAL LAB[address]ORY Drive (ABNORMAL) Hemogram (08/13/2017 5:33 AM EST) Analysis Performed At Patho logist Time Signature WBC 10.1 (H) 4.0 - 9.5 [facility] x10(3)/[facility] LABORATORY RBC 3.21 (L) 4.58 - [facility] 5.54 [facility] x10(6)/[facility] LABORATORY Hemoglobin 9.2 (L) 13.7 - [facility] 16.5 gm/dL [facility]ORY Hematocrit 29.6 (L) 40.5 - [facility] 48.5 % [facility] LABORATORY MCV 92.2 82.9 - [facility] 93.[address] [facility] LABORATORY MCH 28.7 27.5 - [facility] 32.1 pg [facility] LABORATORY MCHC 31.1 (L) 32.0 - [facility] 35.[facility] gm/dL [facility] Platelets 263 145 - 357 [facility] x10(3)/[facility] LABORATORY RDWSD 54.8 (H) 36.0 - [facility] [facility] LABORATORY RDWCV 16.4 (H) 11.4 - [facility] 13.8 % [facility] LABORATORY MPV 9.2 7.6 - 12.9 [facility] LABORATORY nRBC % Auto 0.0 % [facility] nRBC Abs Auto 0.000 0.000 - [facility] 0.000 [facility] x10(3)/[facility] LABORATORY Specimen Anatomical Collection Method Collection Time Receive d Time (Source) Location / / Volume Laterality Blood specimen 08/13/2017 5:33 AM 018 6:04 (specimen) EST AM EST Resulting Agency Comment Spec In Lab Yonathan Smith MD HEMATOLOGY ORDERABLES Performing Organization Address City/State/[place] [address] (ABNORMAL) Prothrombin Time (08/13/2017 5:33 AM EST) P athologist Signature PT 17.3 (H) 11.8 - 14.0 [facility] LABORATORY INR 1.4 (H) 0.9 - 1.1 [facility] Organization Address City/State/Z[place] [address] (ABNORMAL) Basic Metabolic Panel (non-fasting) (08/13/2017 5:33 AM EST) P athologist Signature Glucose Lvl 126 65 - 199 [facility] mg/dL [facility] Comment: Diabetes: >=200 mg/dL plus symp toms BUN 18 10 - 20 mg/dL [facility] Creatinine 1.16 0.80 - 1.50 [...] mmol/L [facility] Calcium 7.9 (L) 8.5 - 10.5 mg/dL [facility] Estimated GFR >60 >=60 [facility] Comment: The reported eGFR should be multiplied b y 1.2 for patients. The MDRD is not an appropriate measure o f renal function for patients with body mass extremes or in patients with acute kidney failure. http://[employer]/DHnkdep http://[employer]/DHMCnkf Specimen Anatomical Collection Method Collection Time Receive d Time (Source) Location / / Volume Laterality Blood specimen 08/13/2017 5:33 AM 018 6:04 (specimen) EST AM EST Resulting Agency Comment Spec In Lab Yonathan Smith MD CHEMISTRY ORDERABLES Performing Organization Address City/State/ZIP Code Phon e Number [address] POCT Glucose (08/13/2017 4:29 AM EST) athologist Signature POC Glucose 111 65 - 199 [facility] mg/dL [facility] Comment: Supplemental ranges: <140 mg/dL before meals <180 mg/dL all other times of the day Specimen Anatomical Collection Method Collection Time Receive d Time (Source) Location / / Volume Laterality Blood specimen 08/13/2017 4:29 AM 018 4:29 (specimen) EST AM EST Yonathan Smith MD POINT OF CARE TEST ORDERABLE S Performing Organization Address City/[facility]/[place] [address] POCT Glucose (08/12/2017 11:28 PM EST) athologist Signature POC Glucose 164 65 - 199 [place]YAN mg/dL [facility] LABORATORY Comment: Supplemental ranges: <140 mg/dL before meals <180 mg/dL all other times of the day Specimen Anatomical Collection Method Collection Time Receive d Time (Source) Location / / Volume Laterality Blood specimen 08/12/2017 11:28 8 (specimen) PM EST 11:28 PM EST Yonathan Smith MD POINT OF CARE TEST ORDERABLE S Performing Organization Address City/[facility]/ZIP Code Phon e Number [address] (ABNORMAL) POCT Glucose (08/12/2017 7:40 PM EST) athologist Signature POC Glucose 209 (H) 65 - 199 [place] mg/dL [facility] [...] Address City/State/ZIP Code Phon e Number [address] POCT Glucose (08/12/2017 4:24 PM EST) athologist Signature POC Glucose 161 65 - 199 [place] mg/dL [facility] [...] Address City/State/ZIP Code Phon e Number [address] POCT Glucose (08/12/2017 12:00 PM EST) athologist Signature POC Glucose 167 65 - 199 [place] mg/dL [facility] [...] Address City/State/ZIP Code Phon e Number [address] POCT Glucose (08/12/2017 7:25 AM EST) athologist Signature POC Glucose 152 65 - 199 BARBARA ZHAORYAN mg/dL [facility] [...] Organization Address City/State/ZIP [place] [address] (ABNORMAL) Differential, Automated (08/12/2017 6:29 AM EST) [facility] Method Time Signature Neutrophils % 78.7 % [facility] LABORATORY Neutr Abs (ANC) 7.94 (H) 1.70 - [facility] 6.10 [facility] x10(3)/[facility] LABORATORY Lymphocytes % 8.8 % [facility] LABORATORY Lymphocytes Abs 0.9 0.9 - 3.2 [facility] x10(3)/[facility] LABORATORY Monocytes % 7.8 % [facility] LABORATORY Monocyte Abs 0.8 0.3 - 0.9 [facility] x10(3)/[facility] LABORATORY Eosinophils % 3.9 % [facility] LABORATORY Eosinophils Abs 0.4 0.0 - 0.4 [facility] x10(3)/[facility] LABORATORY Basophils % 0.3 % [facility] LABORATORY Basophils Abs 0.0 0.0 - 0.1 [facility] x10(3)/[facility] LABORATORY Immature Gran % 0.50 % [facility] LABORATORY Comment: Immature granulocytes(IG's)percentage an d absolute count will include metamyelocytes, myelocytes, and promyelo cytes. Blood smears from CBCs yielding IG's will be scanned manually for concor dance. If this scan disagrees with the automated IG or if promyelocytes are not ed, a manual differential will be performed. Melisa Gran Abs 0.05 (H) 0.00 - 0.04 x10(3)/[facility] LABORATORY Specimen Anatomical Collection Method Collection Time Receive d Time (Source) Location / / Volume Laterality Blood specimen 08/12/2017 6:29 AM 018 6:38 (specimen) EST AM EST Resulting Agency Comment Spec In Lab Yonathan Smith MD HEMATOLOGY ORDERABLES Performing Organization Address City/State/ZIP Code Phon e Number [address] (ABNORMAL) Hemogram (08/12/2017 6:29 AM EST) Analysis Performed At Patho logist Time Signature WBC 10.1 (H) 4.0 - 9.5 [facility] LABORATORY RBC 3.02 (L) 4.58 - [place] RYAN 5.54 [facility] x10(6)/[facility] LABORATORY Hemoglobin 8.7 (L) 13.7 - [facility] 16.5 gm/dL [facility] LABORATORY Hematocrit 28.1 (L) 40.5 - [facility] 48.5 % [facility] LABORATORY MCV 93.0 82.9 - [facility] [address] [facility] LABORATORY MCH 28.8 27.5 - [place] RYAN 32.1 pg [facility] LABORATORY MCHC 31.0 (L) 32.0 - [place] RYAN 35.7 gm/dL [facility] LABORATORY Platelets 223 145 - 357 [facility] x10(3)/[facility] LABORATORY RDWSD 56.1 (H) 36.0 - [place] RYAN [address] [facility] LABORATORY RDWCV 16.4 (H) 11.4 - [facility] 13.8 % [facility] LABORATORY MPV 9.0 7.6 - 12.9 [facility] LABORATORY nRBC % Auto 0.0 % [facility] LABORATORY nRBC Abs Auto 0.000 0.000 - [place]YAN 0.000 [facility] x10(3)/[facility] LABORATORY Specimen Anatomical Collection Method Collection Time Receive d Time (Source) Location / / Volume Laterality Blood specimen 08/12/2017 6:29 AM 018 6:38 (specimen) EST AM EST Resulting Agency Comment Spec In Lab Yonathan Smith MD HEMATOLOGY ORDERABLES Performing Organization Address City/State/[place] [address] (ABNORMAL) Prothrombin Time (08/12/2017 [...] Organization Address City/State/[place] [address] (ABNORMAL) Basic Metabolic Panel (non-fasting) (08/12/2017 6:29 AM EST) athologist Signature Glucose Lvl 151 65 - 199 [facility] mg/dL [facility] LABORATORY Comment: Diabetes: >=200 mg/dL plus symp toms BUN 18 10 - 20 mg/dL [facility] LABORATORY Creatinine 1.11 0.80 - 1.50 [...] Chloride 99 98 - 107 mmol/L [facility] LABORATORY CO2 28 22 - 31 mmol/L [facility] LABORATORY Anion Gap 11 5 - 15 mmol/L [facility] LABORATORY Calcium 7.9 (L) 8.5 - 10.5 mg/dL [facility] LABORATORY Estimated GFR >60 >=60 [facility] LABORATORY Comment: The reported eGFR should be multiplied b y 1.2 for patients. The MDRD is not an appropriate measure o f renal function for patients with body mass extremes or in patients with acute kidney failure. http://[employer]/DHnkdep http://[employer]/DHMCnkf Specimen Anatomical Collection Method Collection Time Receive d Time (Source) Location / / Volume Laterality Blood specimen 08/12/2017 6:29 AM 018 6:38 (specimen) EST AM EST Resulting Agency Comment Spec In Lab Yonathan Smith MD CHEMISTRY ORDERABLES Performing Organization Address City/[facility]/ZIP Code Phon e Number [address] POCT Glucose (08/12/2017 4:08 AM EST) athologist Signature POC Glucose 181 65 - 199 [facility] [...] Organization Address City/State/[place] [address] (ABNORMAL) POCT Glucose (08/12/2017 12:17 AM EST) P athologist Signature POC Glucose 221 (H) 65 - 199 [facility]dL [facility] LAB[facility]ORY Comment: Supplemental ranges: <140 mg/dL before meals <180 mg/dL all other times of the day Specimen Anatomical Collection Method Collection Time Receive d Time (Source) Location / / Volume Laterality Blood specimen 08/12/2017 12:17 8 (specimen) AM EST 12:17 AM EST Yonathan Smith MD POINT OF CARE TEST ORDERABLE S Performing Organization Address City/[facility]/ZIP Code Phon e Number [address] (ABNORMAL) POCT Glucose (08/11/2017 8:52 PM EST) athologist Signature POC Glucose 221 (H) 65 - 199 BARBARA ZHAORYAN mg/dL [facility] LABOR[facility] Comment: Supplemental ranges: <140 mg/dL before meals <180 mg/dL all other times of the day Specimen Anatomical Collection Method Collection Time Receive d Time (Source) Location / / Volume Laterality Blood specimen 08/11/2017 8:52 PM 018 8:52 (specimen) EST PM EST Yonathan Smith MD POINT OF CARE TEST ORDERABLE S Performing Organization Address City/[facility]/[place] [address] POCT Glucose (08/11/2017 5:59 PM EST) athologist Signature POC Glucose 169 65 - 199 BARBARA ZHAORYAN mg/dL [facility] LABORATORY Comment: Supplemental ranges: <140 mg/dL before meals <180 mg/dL all other times of the day Specimen Anatomical Collection Method Collection Time Receive d Time (Source) Location / / Volume Laterality Blood specimen 08/11/2017 5:59 PM 018 5:59 (specimen) EST PM EST Yonathan Smith MD POINT OF CARE TEST ORDERABLE S Performing Organization Address City/[facility]/[place] [address] (ABNORMAL) POCT Glucose (08/11/2017 4:08 PM EST) athologist Signature POC Glucose 240 (H) 65 - 199 [place]BAR[place] RYAN mg/dL [facility] LABORATORY Comment: Supplemental ranges: <140 mg/dL before meals <180 mg/dL all other times of the day Specimen Anatomical Collection Method Collection Time Receive d Time (Source) Location / / Volume Laterality Blood specimen 08/11/2017 4:08 PM 01/17/2 018 4:08 (specimen) EST PM EST Yonathan Smith MD POINT OF CARE TEST ORDERABLE S Performing Organization Address City/State/ZIP Code Phon e Number [address] POCT Glucose (08/11/2017 12:04 PM EST) athologist Signature POC Glucose 182 65 - 199 [facility] [...] Address City/State/ZIP Code Phon e Number [address] POCT Glucose (08/11/2017 7:31 AM EST) athologist Signature POC Glucose 156 65 - 199 [facility] [...] Address City/State/ZIP Code Phon e Number [address] (ABNORMAL) Differential, Automated (08/11/2017 6:16 AM EST) [facility] gist Method Time Signature Neutrophils % 83.7 % [facility] LABORATORY Neutr Abs (ANC) 10.76 (H) 1.70 - [facility] 6.10 [facility] x10(3)/[facility] LABORATORY Lymphocytes % 6.0 % [facility] LABORATORY Lymphocytes Abs 0.8 (L) 0.9 - 3.2 [facility] x10(3)/[facility] LABORATORY Monocytes % 7.5 % [facility] LABORATORY Monocyte Abs 1.0 (H) 0.3 - 0.9 [facility] x10(3)/[facility] LABORATORY Eosinophils % 2.0 % [facility] LABORATORY Eosinophils Abs 0.3 0.0 - 0.4 [facility] x10(3)/[facility] LABORATORY Basophils % 0.3 % [facility] LABORATORY Basophils Abs 0.0 0.0 - 0.1 [facility] x10(3)/[facility] LABORATORY Immature Gran % 0.50 % [facility] LABORATORY Comment: [...] 0.00 - 0.04 x10(3)/[facility] LABORATORY Specimen Anatomical Collection Method Collection Time Receive d Time (Source) Location / / Volume Laterality Blood specimen 08/11/2017 6:16 AM 018 6:24 (specimen) EST AM EST Resulting Agency Comment Spec In Lab Yonathan Smith MD HEMATOLOGY ORDERABLES Performing Organization Address City/State/ZIP [place] [address] (ABNORMAL) Hemogram (08/11/2017 6:16 AM EST) Analysis Performed At Patho logist Time Signature WBC 12.9 (H) 4.0 - 9.5 [facility] x10(3)/[facility] LABORATORY RBC 3.28 (L) 4.58 - [facility] 5.54 [facility] x10(6)/[facility] LABORATORY Hemoglobin 9.5 (L) 13.7 - [facility] 16.5 gm/dL [facility] LABORATORY Hematocrit 29.8 (L) 40.5 - [facility] 48.5 % [facility] LABORATORY MCV 90.9 82.9 - [facility] 93.[address] [facility] LABORATORY MCH 29.0 27.5 - [place] RYAN 32.1 pg [facility] LABORATORY MCHC 31.9 (L) 32.0 - BARBARA DAVIS 35.7 gm/dL [facility] LABORATORY Platelets 236 145 - 357 [facility] x10(3)/[facility] LABORATORY RDWSD 53.5 (H) 36.0 - [facility] 45.[address] [facility] LABORATORY RDWCV 16.3 (H) 11.4 - [facility] R[facility] 13.8 % [facility] LABORATORY MPV 8.8 7.6 - 12.9 [facility] LABORATORY nRBC % Auto 0.0 % [facility] LABORATORY nRBC Abs Auto 0.000 0.000 - [facility] 0.000 [facility] x10(3)/[facility] LABORATORY Specimen Anatomical Collection Method Collection Time Receive d Time (Source) Location / / Volume Laterality Blood specimen 08/11/2017 6:16 AM 018 6:24 (specimen) EST AM EST Resulting Agency Comment Spec In Lab Yonathan Smith MD HEMATOLOGY ORDERABLES Performing Organization Address City/State/ZIP [place] [address] (ABNORMAL) Prothrombin Time (08/11/2017 [...] Smith MD HEMATOLOGY ORDERABLES Performing Organization Address City/[facility]/[place] [address] Basic Metabolic Panel (non-fasting) (08/11/2017 6:16 AM EST) athologist Signature Glucose Lvl 139 65 - 199 [facility] mg/dL [facility] LABORATORY Comment: Diabetes: >=200 mg/dL plus symp toms BUN 12 10 - 20 mg/dL [facility] LABORATORY Creatinine 0.91 0.80 - 1.50 [...] or in patients with acute kidney failure. http://[employer]/DHnkdep http://[employer]/DHMCnkf Specimen Anatomical Collection Method Collection Time Receive d Time (Source) Location / / Volume Laterality Blood specimen 08/11/2017 6:16 AM 018 6:24 (specimen) EST AM EST Resulting Agency Comment Spec In Lab Yonathan Smith MD CHEMISTRY ORDERABLES Performing Organization Address City/[facility]/ZIP Code Phon e Number [address] POCT Glucose (08/11/2017 4:07 AM EST) athologist Signature POC Glucose 162 65 - 199 [facility] mg/dL [facility] [...] Address City/State/ZIP Code Phon e Number [address] POCT Glucose (08/10/2017 11:59 PM EST) athologist Signature POC Glucose 166 65 - 199 [place] RYAN mg/dL [facility] [...] Organization Address City/State/[place] [address] POCT Glucose (08/10/2017 8:12 PM EST) athologist Signature POC Glucose 156 65 - 199 [facility] mg/dL [facility] [...] Organization Address City/State/[place] [address] (ABNORMAL) POCT Glucose (08/10/2017 4:42 PM EST) P athologist Signature POC Glucose 211 (H) 65 - 199 [facility] mg/dL [facility] [...] City/State/ZIP Code Phon e Number [place] [id number]OS[address] Drive (ABNORMAL) Differential, Automated (08/10/2017 2:30 PM EST) Patholo gist Method Time Signature Neutrophils % 87.6 % [facility] LABORATORY Neutr Abs (ANC) 9.90 (H) 1.70 - [facility] 6.10 [facility] x10(3)/[facility] L LABORATORY Lymphocytes % 4.3 % [facility] LABORATORY Lymphocytes Abs 0.5 (L) 0.9 - 3.2 [facility] x10(3)/[facility] LABORATORY Monocytes % 6.0 % [facility] LABORATORY Monocyte Abs 0.7 0.3 - 0.9 [facility] x10(3)/[facility] LABORATORY Eosinophils % 1.1 % [facility] LABORATORY Eosinophils Abs 0.1 0.0 - 0.4 [facility] x10(3)/[facility] LABORATORY Basophils % 0.4 % [facility] LABORATORY Basophils Abs 0.0 0.0 - 0.1 [facility] x10(3)/[facility] LABORATORY Immature Gran % 0.60 % [facility] [...] Gran Abs 0.07 (H) 0.00 - 0.04 x10(3)/[facility] LABORATORY Specimen Anatomical Collection Method Collection Time Receive d Time (Source) Location / / Volume Laterality Blood specimen 08/10/2017 2:30 PM 018 2:48 (specimen) EST PM EST Resulting Agency Comment Spec In Lab Yonathan Smith MD HEMATOLOGY ORDERABLES Performing Organization Address City/State/ZIP [place] [address] (ABNORMAL) Hemogram (08/10/2017 2:30 PM EST) Analysis Performed At Patho logist Time Signature WBC 11.3 (H) 4.0 - 9.5 [facility] x10(3)/[facility] LABORATORY RBC 3.13 (L) 4.58 - [facility] 5.54 [facility] x10(6)/[facility] LABORATORY Hemoglobin 8.9 (L) 13.7 - [facility] 16.5 gm/dL [facility] LABORATORY Hematocrit 28.4 (L) 40.5 - [facility] 48.5 % [facility] LABORATORY MCV 90.7 82.9 - [facility] [address] [facility] LABORATORY MCH 28.4 27.5 - [facility] 32.1 pg [facility] LABORATORY MCHC 31.3 (L) 32.0 - [facility] 35.7 gm/dL [facility] LABORATORY Platelets 213 145 - 357 [facility] x10(3)/[facility] LABORATORY RDWSD 53.7 (H) 36.0 - [facility] [address] [facility] LABORATORY RDWCV 16.4 (H) 11.4 - [facility] 13.8 % [facility] LABORATORY MPV 8.9 7.6 - 12.9 [facility] LABORATORY nRBC % Auto 0.0 % [facility] LABORATORY nRBC Abs Auto 0.000 0.000 - [facility] 0.000 [facility] x10(3)/[facility] LABORATORY Specimen Anatomical Collection Method Collection Time Receive d Time (Source) Location / / Volume Laterality Blood specimen 08/10/2017 2:30 PM 018 2:48 (specimen) EST PM EST Resulting Agency Comment Spec In Lab Yonathan Smith MD HEMATOLOGY ORDERABLES Performing Organization Address City/State/ZIP Code Phon e Number [address] (ABNORMAL) POCT Glucose (08/10/2017 1:50 PM EST) athologist Signature POC Glucose 243 (H) 65 - 199 [facility] mg/dL [facility] LABORATORY Comment: Supplemental ranges: <140 mg/dL before meals <180 mg/dL all other times of the day Specimen Anatomical Collection Method Collection Time Receive d Time (Source) Location / / Volume Laterality Blood specimen 08/10/2017 1:50 PM 018 1:50 (specimen) EST PM EST Yonathan Smith MD POINT OF CARE TEST ORDERABLE S Performing Organization Address City/[facility]/ZIP Code Phon e Number [address] POCT Glucose (08/10/2017 11:21 AM EST) athologist Signature POC Glucose 156 65 - 199 [facility] mg/dL [facility] LABORATORY Comment: Supplemental ranges: <140 mg/dL before meals <180 mg/dL all other times of the day Specimen Anatomical Collection Method Collection Time Receive d Time (Source) Location / / Volume Laterality Blood specimen 08/10/2017 11:21 8 (specimen) AM EST 11:21 AM EST Yonathan Smith MD POINT OF CARE TEST ORDERABLE S Performing Organization Address City/[facility]/[place] [address] (ABNORMAL) Differential, Automated (08/10/2017 10:28 AM EST) [facility] Time Signature Neutrophils % 85.3 % [facility] LABORATORY Neutr Abs (ANC) 9.43 (H) 1.70 - [facility] 6.10 [facility] x10(3)/[facility] LABORATORY Lymphocytes % 5.5 % [facility] LABORATORY Lymphocytes Abs 0.6 (L) 0.9 - 3.2 [facility] x10(3)/[facility] LABORATORY Monocytes % 5.9 % [facility] LABORATORY Monocyte Abs 0.6 0.3 - 0.9 [facility] x10(3)/[facility] LABORATORY Eosinophils % 2.1 % [facility] LABORATORY Eosinophils Abs 0.2 0.0 - 0.4 [facility] x10(3)/[facility] LABORATORY Basophils % 0.4 % [facility] LABORATORY Basophils Abs 0.0 0.0 - 0.1 [facility] x10(3)/[facility] LABORATORY Immature Gran % 0.80 % [facility] LABORATORY Comment: Immature granulocytes(IG's)percentage an d absolute count will include metamyelocytes, myelocytes, and promyelo cytes. Blood smears from CBCs yielding IG's will be scanned manually for concor dance. If this scan disagrees with the automated IG or if promyelocytes are not ed, a manual differential will be performed. Melisa Gran Abs 0.09 (H) 0.00 - 0.04 x10(3)/[facility] LABORATORY Specimen Anatomical Collection Method Collection Time Receive d Time (Source) Location / / Volume Laterality Blood specimen 08/10/2017 10:28 8 (specimen) AM EST 10:35 AM EST Resulting Agency Comment Spec In Lab Yonathan Smith MD HEMATOLOGY ORDERABLES Performing Organization Address City/State/Z[place] [address] (ABNORMAL) Hemogram (08/10/2017 10:28 AM EST) Analysis Performed At Patho logist Time Signature WBC 11.0 (H) 4.0 - 9.5 [facility] x10(3)/[facility] LABORATORY RBC 3.02 (L) 4.58 - [facility] 5.54 [facility] x10(6)/[facility] LABORATORY Hemoglobin 8.8 (L) 13.7 - [facility] gm/dL [facility] LABORATORY Hematocrit 28.1 (L) 40.5 - [facility] 48.5 % [facility] LABORATORY MCV 93.0 82.9 - [facility] 93.1 [facility] MCH 29.1 27.5 - BARBARA DAVIS 32.1 pg [facility] MCHC 31.3 (L) 32.0 - BARBARA DAVIS 35.7 gm/dL [facility] Platelets 207 145 - 357 [facility] x10(3)/[facility] LABORATORY RDWSD 55.3 (H) 36.0 - BARBARA RYAN 45.0 [facility] RDWCV 16.4 (H) 11.4 - [facility] 13.8 % [facility] MPV 9.0 7.6 - 12.9 [facility] LABORATORY nRBC % Auto 0.0 % [facility] nRBC Abs Auto 0.000 0.000 - [facility] 0.000 [facility] x10(3)/[facility] LABORATORY Specimen Anatomical Collection Method Collection Time Receive d Time (Source) Location / / Volume Laterality Blood specimen 08/10/2017 10:28 8 (specimen) AM EST 10:35 AM EST Resulting Agency Comment Spec In Lab Yonathan Smith MD HEMATOLOGY ORDERABLES Performing Organization Address City/State/[place] [address] VS Angiogram/intervention (vascular) (08/10/2017 [...] 2.5x80 5. Completion RLE angiogram 6. L BARGE WORKER angiogram 7. 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 L BARGE WORKER access in the distal L BARGE WORKER. - Closure device: Mynx Technical Procedure: [...] for a 45cm 5F Destination. V18 and [place] a nd QuickCross catheters were used to [...] bifurcation. Access appeared in the distal R BARGE WORKER. Closure and sheath removal was performed [...] 2.5x80 5. Completion RLE angiogram 6. L BARGE WORKER angiogram 7. 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 L BARGE WORKER access in the distal L BARGE WORKER. - Closure device: Mynx Technical Procedure: [...] for a 45cm 5F Destination. V18 and [place] a nd QuickCross catheters were used to [...] bifurcation. Access appeared in the distal R BARGE WORKER. Closure and sheath removal was performed [...] (ABNORMAL) Differential, Automated (08/10/2017 5:50 AM EST) [facility] gist Method Time Signature Neutrophils % 80.1 % [facility] LABORATORY Neutr Abs (ANC) 9.01 (H) 1.70 - [facility] 6.10 [facility] x10(3)/[facility] LABORATORY Lymphocytes % 8.8 % [facility] LABORATORY Lymphocytes Abs 1.0 0.9 - 3.2 [facility] x10(3)/[facility] LABORATORY Monocytes % 8.3 % [facility] LABORATORY Monocyte Abs 0.9 0.3 - 0.9 [facility] x10(3)/[facility] LABORATORY Eosinophils % 2.0 % [facility] LABORATORY Eosinophils Abs 0.2 0.0 - 0.4 [facility] x10(3)/[facility] LABORATORY Basophils % 0.4 % [facility] LABORATORY Basophils Abs 0.0 0.0 - 0.1 [facility] x10(3)/[facility] LABORATORY Immature [...] Gran Abs 0.05 (H) 0.00 - 0.04 x10(3)/[facility] LABORATORY Specimen Anatomical Collection Method Collection Time Receive d Time (Source) Location / / Volume Laterality Blood specimen 08/10/2017 5:50 AM 018 5:59 (specimen) EST AM EST Resulting Agency Comment Spec In Lab Yonathan Smith MD HEMATOLOGY ORDERABLES Performing Organization Address City/State/ZIP [place] [address] (ABNORMAL) Hemogram (08/10/2017 5:50 AM EST) Analysis Performed At Patho logist Time Signature WBC 11.3 (H) 4.0 - 9.5 [facility](3[facility] LABORATORY RBC 3.15 (L) 4.58 - [facility] 5.54 [facility] x10(6)/[facility] LABORATORY Hemoglobin 8.9 (L) 13.7 - [facility] 16.[facility] gm/dL [facility] LABORATORY Hematocrit 29.0 (L) 40.5 - [facility] 48.5 % [facility] LABORATORY MCV 92.1 82.9 - [facility] 93.[address] [facility] LABORATORY MCH 28.3 27.5 - [facility] 32.1 pg [facility] LABORATORY MCHC 30.7 (L) 32.0 - [facility] 35.7 gm/dL [facility] LABORATORY Platelets 231 145 - 357 [facility] x10(3)/[facility] LABORATORY RDWSD 53.9 (H) 36.0 - [facility] [address] [facility] LABORATORY RDWCV 16.2 (H) 11.4 - [facility] 13.8 % [facility] LABORATORY MPV 8.7 7.6 - 12.9 [facility] LABORATORY nRBC % Auto 0.0 % [facility] LABORATORY nRBC Abs Auto 0.000 0.000 - [facility] 0.000 [facility] x10(3)/[facility] LABORATORY Specimen Anatomical Collection Method Collection Time Receive d Time (Source) Location / / Volume Laterality Blood specimen 08/10/2017 5:50 AM 018 5:59 (specimen) EST AM EST Resulting Agency Comment Spec In Lab Yonathan Smith MD HEMATOLOGY ORDERABLES Performing Organization Address City/State/ZIP [place] [address] (ABNORMAL) Basic Metabolic Panel (non-fasting) (08/10/2017 5:50 AM EST) athologist Signature Glucose Lvl 135 65 - 199 [facility] mg/dL [facility] LABORATORY Comment: Diabetes: >=200 mg/dL plus symp toms BUN 17 10 - 20 mg/dL [facility] LABORATORY Creatinine 1.05 0.80 - 1.50 [...] or in patients with acute kidney failure. [email or web address] [email or web address]/DHMCnkf Specimen Anatomical Collection Method Collection Time Receive d Time (Source) Location / / Volume Laterality Blood specimen 08/10/2017 5:50 AM 018 5:59 (specimen) EST AM EST Resulting Agency Comment Spec In Lab Yonathan Smith MD CHEMISTRY ORDERABLES Performing Organization Address City/[facility]/[place] [address] (ABNORMAL) Prothrombin Time (08/10/2017 5:50 AM EST) athologist Signature PT 16.8 (H) 11.8 - 14.0 [facility] LABORATORY INR 1.4 (H) 0.9 - 1.1 [facility] Smith MD HEMATOLOGY ORDERABLES Performing Organization Address City/[facility]/[place] [address] (ABNORMAL) POCT Glucose (08/10/2017 4:01 AM EST) athologist Signature POC Glucose 206 (H) 65 - 199 [facility] mg/dL [facility] [...] TEST ORDERABLE S Performing Organization Address City/[facility]/ZIP Code [place] [address] POCT Glucose (08/10/2017 2:01 AM EST) athologist Signature POC Glucose 188 65 - 199 [facility] mg/dL [facility] [...] Organization Address City/State/[place] [address] (ABNORMAL) POCT Glucose (08/09/2017 11:42 PM EST) athologist Signature POC Glucose 283 (H) 65 - 199 [facility] mg/dL [facility] [...] Organization Address City/State/[place] [address] POCT Glucose (08/09/2017 8:55 PM EST) athologist Signature POC Glucose 182 65 - 199 [facility] mg/dL [facility] [...] Organization Address City/State/[place] [address] (ABNORMAL) APTT (08/09/2017 6:42 PM EST) athologist Signature PTT 90 (H) 25 - 35 sec [facility] Smith MD HEMATOLOGY ORDERABLES Performing Organization Address City/[facility]/ZIP [facility] Phon e Number [address] POCT Glucose (08/09/2017 4:41 PM EST) athologist Signature POC Glucose 195 65 - 199 [facility] mg/dL [facility] LABORATORY Comment: Supplemental ranges: <140 mg/dL before meals <180 mg/dL all other times of the day Specimen Anatomical Collection Method Collection Time Receive d Time (Source) Location / / Volume Laterality Blood specimen 08/09/2017 4:41 PM 018 4:41 (specimen) EST PM EST Yonathan Smith MD POINT OF CARE TEST ORDERABLE S Performing Organization Address City/[facility]/[place] [address] POCT Glucose (08/09/2017 12:29 PM EST) athologist Signature POC Glucose 140 65 - 199 [facility] mg/dL [facility] [...] Organization Address City/State/[place] [address] POCT Glucose (08/09/2017 9:59 AM EST) P athologist Signature POC Glucose 135 65 - 199 [facility] mg/dL [facility] [...] TEST ORDERABLE S Performing Organization Address City/[facility]/[place] [address] Specimen to Pathology (08/09/2017 8:41 AM EST) Specimen Anatomical Collection Method Collection Time Receive d Time (Source) Location / / Volume Laterality AP Specimen 08/09/2017 8:41 AM 8 8:41 EST AM EST Narrative [facility] LABORAT ORY - 08/09/2017 8:41 AM EST Specimen requisition ordered. ??Separate Pathology report to follow Yonathan Smith MD PATHOLOGY/CYTOLOGY ORDERABLE S Performing Organization Address City/[facility]/[place] [address] Surgical Pathology Report (08/09/2017 8:40 AM EST) Component Value Ref Test Analysis Performed At Patholo gist Range Method Time Signature Surgical [id number] ? Location: [facility]; [facility]; [facility] Report The signing pathologist has (i) [...] Henrique Flower Verified: ??08/13/2017 ?Pathologist Performed at: ??-[facility] Dept. of Pathology, [place], [place] CLINICAL INFORMATION Specimen Submitted: A - [...] Organization Address City/State/ZIP [place] [address] Anaerobic Culture (08/09/2017 8:30 AM EST) [facility] gist Method Time Signature Anaerobic No anaerobic [facility] Culture organisms [facility] [...] Organization Address City/State/[place] [address] (ABNORMAL) Abscess/Wound Aspirate Culture (08/09/2017 8:30 AM EST) Patholo gist Method Time Signature Abscess/Wound Moderate mixed [place] Aspirate bacterial [place] Culture morphotypes [facility] normal LABORATORY cutaneous leroy (A) Gram Stain Rare White Blood Cells [place] Few Gram Positive Cocci in pairs [place] () [facility] LABORATORY Organism Gram Positive [place] Cocci in pairs [place] () [facility] LABORATORY [...] - GENERAL ORDER ROBSON Performing Organization Address City/[facility]/ZIP Code Phon e Number [address] POCT Glucose (08/09/2017 4:28 AM EST) P athologist Signature POC Glucose 128 65 - 199 [facility] mg/dL [facility] LABORATORY Comment: Supplemental ranges: <140 mg/dL before meals <180 mg/dL all other times of the day Specimen Anatomical Collection Method Collection Time Receive d Time (Source) Location / / Volume Laterality Blood specimen 08/09/2017 4:28 AM 018 4:28 (specimen) EST AM EST Yonathan Smith MD POINT OF CARE TEST ORDERABLE S Performing Organization Address City/[facility]/[place] [address] ABORH Recheck Status (08/09/2017 1:10 AM EST) [facility] gist Method Time Signature ABORH Type Completed [facility] LABORATORY Specimen Anatomical Collection Method Collection Time Receive d Time (Source) Location / / Volume Laterality Blood specimen 08/09/2017 1:10 AM 018 1:35 (specimen) EST AM EST Resulting Agency Comment Spec In Lab Yonathan Smith MD BLOOD BANK ORDERABLES Performing Organization Address City/[facility]/[place] [address] Antibody screen (08/09/2017 1:10 AM EST) [facility] Method Time Signature Ab Screen Negative [facility] LABORATORY Expires at 08/12/2017 [facility] [id number] on: [facility] LABORATORY Specimen Anatomical Collection Method Collection Time Receive d Time (Source) Location / / Volume Laterality Blood specimen 08/09/2017 1:10 AM 018 1:35 (specimen) EST AM EST Resulting Agency Comment Spec In Lab Yonathan Smith MD BLOOD BANK ORDERABLES Performing Organization Address City/[facility]/[place] [address] ABO/Rh Typing (08/09/2017 1:10 AM EST) P athologist Signature ABORh Type O Pos [facility] LABORATORY Specimen Anatomical Collection Method Collection Time Receive d Time (Source) Location / / Volume Laterality Blood specimen 08/09/2017 1:10 AM 018 1:35 (specimen) EST AM EST Resulting Agency Comment Spec In Lab Yonathan Smith MD BLOOD BANK ORDERABLES Performing Organization Address City/[facility]/[place] [address] (ABNORMAL) APTT (08/09/2017 1:10 AM EST) P athologist Signature PTT 86 (H) 25 - 35 sec [facility] [...] Organization Address City/State/Z[place] [address] (ABNORMAL) Differential, Automated (08/09/2017 1:10 AM EST) [facility] gist Method Time Signature Neutrophils % 76.2 % [facility] LABORATORY Neutr Abs (ANC) 8.59 (H) 1.70 - [facility] 6.10 [facility] x10(3)/[facility] LABORATORY Lymphocytes % 11.0 % [facility] LABORATORY Lymphocytes Abs 1.2 0.9 - 3.2 [facility] x10(3)/[facility] LABORATORY Monocytes % 8.4 % [facility] LABORATORY Monocyte Abs 1.0 (H) 0.3 - 0.9 [facility] x10(3)/[facility] LABORATORY Eosinophils % 3.5 % [facility] LABORATORY Eosinophils Abs 0.4 0.0 - 0.4 [facility] x10(3)/[facility] LABORATORY Basophils % 0.5 % [facility] LABORATORY Basophils Abs 0.1 0.0 - 0.1 [facility] x10(3)/[facility] LABORATORY Immature [...] Gran Abs 0.05 (H) 0.00 - 0.04 x10(3)/[facility] LABORATORY Specimen Anatomical Collection Method Collection Time Receive d Time (Source) Location / / Volume Laterality Blood specimen 08/09/2017 1:10 AM 018 1:19 (specimen) EST AM EST Resulting Agency Comment Spec In Lab Yonathan Smith MD HEMATOLOGY ORDERABLES Performing Organization Address City/State/Z[place] [address] (ABNORMAL) Hemogram (08/09/2017 1:10 AM EST) Analysis Performed At Patho logist Time Signature WBC 11.3 (H) 4.0 - 9.5 [facility](3[facility] LABORATORY RBC 3.47 (L) 4.58 - [facility] 5.54 [facility] x10(6)/[facility] LABORATORY Hemoglobin 10.0 (L) 13.7 - [facility] 16.5 gm/dL [facility] LABORATORY Hematocrit 31.9 (L) 40.5 - [facility] 48.5 % [facility] LABORATORY MCV 91.9 82.9 - [facility] [facility] LABORATORY MCH 28.8 27.5 - [facility] 32.1 pg [facility] LABORATORY MCHC 31.3 (L) 32.0 - [facility] 35.7 gm/dL [facility] LABORATORY Platelets 234 145 - 357 [facility] x10(3)/[facility] LABORATORY RDWSD 54.0 (H) 36.0 - [facility] [facility] LABORATORY RDWCV 16.2 (H) 11.4 - [facility] 13.8 % [facility] LABORATORY MPV 8.7 7.6 - 12.9 [facility] LABORATORY nRBC % Auto 0.0 % [facility] LABORATORY nRBC Abs Auto 0.000 0.000 - [facility] 0.000 [facility] x10(3)/[facility] LABORATORY Specimen Anatomical Collection Method Collection Time Receive d Time (Source) Location / / Volume Laterality Blood specimen 08/09/2017 1:10 AM 018 1:19 (specimen) EST AM EST Resulting Agency Comment Spec In Lab Yonathan Smith MD HEMATOLOGY ORDERABLES Performing Organization Address City/State/Z[place] [address] (ABNORMAL) Prothrombin Time (08/09/2017 [...] City/State/ZIP Code Phon e Number [place] [id number] (ABNORMAL) Basic Metabolic Panel (non-fasting) (08/09/2017 1:10 AM EST) athologist Signature Glucose Lvl 108 65 - 199 [facility] mg/dL [facility] LABORATORY Comment: Diabetes: >=200 mg/dL plus symp toms BUN 34 (H) 10 - 20 mg/dL [facility] LABORATORY Creatinine 1.54 (H) 0.80 - [...] mmol/L [facility] LABORATORY Calcium 8.3 (L) 8.5 - 10.5 mg/dL [facility] LABORATORY Estimated GFR 45 (L) >=60 [facility] LABORATORY Comment: The reported eGFR should be multiplied b y 1.2 for patients. The MDRD is not an appropriate measure o f renal function for patients with body mass extremes or in patients with acute kidney failure. http://[email or web address]/DHnkdep http://Augure/DHnkf Specimen Anatomical Collection Method Collection Time Receive d Time (Source) Location / / Volume Laterality Blood specimen 08/09/2017 1:10 AM 018 1:19 (specimen) EST AM EST Resulting Agency Comment Spec In Lab Yonathan Smith MD CHEMISTRY ORDERABLES Performing Organization Address City/[facility]/ZIP Code Phon e Number [address] POCT Glucose (08/09/2017 12:05 AM EST) athologist Signature POC Glucose 128 65 - 199 [facility] mg/dL [facility] LABORATORY Comment: Supplemental ranges: <140 mg/dL before meals <180 mg/dL all other times of the day Specimen Anatomical Collection Method Collection Time Receive d Time (Source) Location / / Volume Laterality Blood specimen 08/09/2017 12:05 8 (specimen) AM EST 12:05 AM EST Yonathan Smith MD POINT OF CARE TEST ORDERABLE S Performing Organization Address City/[facility]/[place] [address] (ABNORMAL) POCT Glucose (08/08/2017 7:36 PM EST) athologist Signature POC Glucose 215 (H) 65 - 199 [facility] mg/dL [facility] LABORATORY Comment: Supplemental ranges: <140 mg/dL before meals <180 mg/dL all other times of the day Specimen Anatomical Collection Method Collection Time Receive d Time (Source) Location / / Volume Laterality Blood specimen 08/08/2017 7:36 PM 018 7:36 (specimen) EST PM EST Yonathan Smith MD POINT OF CARE TEST ORDERABLE S Performing Organization Address City/[facility]/[place] [address] (ABNORMAL) POCT Glucose (08/08/2017 6:23 PM EST) athologist Signature POC Glucose 216 (H) 65 - 199 [facility] mg/dL [facility] LABORATORY Comment: Supplemental ranges: <140 mg/dL before meals <180 mg/dL all other times of the day Specimen Anatomical Collection Method Collection Time Receive d Time (Source) Location / / Volume Laterality Blood specimen 08/08/2017 6:23 PM 018 6:23 (specimen) EST PM EST Yonathan Smith MD POINT OF CARE TEST ORDERABLE S Performing Organization Address [facility]/[place] [address] (ABNORMAL) APTT (08/08/2017 6:00 PM EST) athologist Signature PTT 97 (H) 25 - 35 sec [facility] Smith MD HEMATOLOGY ORDERABLES Performing Organization Address City/[facility]/[place] [address] POCT Glucose (08/08/2017 4:42 PM EST) athologist Signature POC Glucose 78 65 - 199 [facility] mg/dL [facility] [...] Organization Address City/State/[place] [address] (ABNORMAL) POCT Glucose (08/08/2017 4:01 PM EST) P athologist Signature POC Glucose 58 (L) 65 - 199 [facility] mg/dL [facility] [...] Organization Address City/State/[place] [address] POCT Glucose (08/08/2017 11:51 AM EST) P athologist Signature POC Glucose 90 65 - 199 [facility] mg/dL [facility] [...] Address City/State/ZIP Code Phon e Number [address] (ABNORMAL) APTT (08/08/2017 10:27 AM EST) P athologist Signature PTT 64 (H) 25 - 35 sec [facility] Smith MD HEMATOLOGY ORDERABLES Performing Organization Address City/[facility]/ZIP Code Phon e Number [address] POCT Glucose (08/08/2017 8:02 AM EST) athologist Signature POC Glucose 178 65 - 199 [facility] mg/dL [facility] [...] TEST ORDERABLE S Performing Organization Address City/[facility]/[place] [address] (ABNORMAL) APTT (08/08/2017 4:51 AM EST) athologist Signature PTT >160 25 - 35 [facility] (Critical) sec [facility] LABORATORY Comment: Called by: HOWARD, Read [...] Address City/State/ZIP Code [place] [address] (ABNORMAL) Differential, Automated (08/08/2017 4:51 AM EST) [facility] Method Time Signature Neutrophils % 77.9 % [facility] LABORATORY Neutr Abs (ANC) 8.17 (H) 1.70 - [facility] 6.10 [facility] x10(3)/[facility] LABORATORY Lymphocytes % 10.3 % [facility] LABORATORY Lymphocytes Abs 1.1 0.9 - 3.2 [facility] x10(3)/[facility] LABORATORY Monocytes % 7.0 % [facility] LABORATORY Monocyte Abs 0.7 0.3 - 0.9 [facility] x10(3)/[facility] LABORATORY Eosinophils % 3.6 % [facility] LABORATORY Eosinophils Abs 0.4 0.0 - 0.4 [facility] x10(3)/[facility] LABORATORY Basophils % 0.5 % [facility] LABORATORY Basophils Abs 0.0 0.0 - 0.1 [facility] x10(3)/[facility] LABORATORY Immature [...] Gran Abs 0.07 (H) 0.00 - 0.04 x10(3)/[facility] LABORATORY Specimen Anatomical Collection Method Collection Time Receive d Time (Source) Location / / Volume Laterality Blood specimen 08/08/2017 4:51 AM 018 5:14 (specimen) EST AM EST Resulting Agency Comment Spec In Lab Yonathan Smith MD HEMATOLOGY ORDERABLES Performing Organization Address City/State/Z[place] [address] (ABNORMAL) Hemogram (08/08/2017 4:51 AM EST) Analysis Performed At Patho logist Time Signature WBC 10.5 (H) 4.0 - 9.5 [facility] LABORATORY RBC 3.27 (L) 4.58 - [facility] 5.54 [facility] x10(6)/[facility] LABORATORY Hemoglobin 9.3 (L) 13.7 - [facility] gm/dL [facility] LABORATORY Hematocrit 30.3 (L) 40.5 - [facility] 48.5 % [facility] LABORATORY MCV 92.7 82.9 - [facility] [address].1 [facility] LABORATORY MCH 28.4 27.5 - BARBARA RYAN 32.1 pg [facility] LABORATORY MCHC 30.7 (L) 32.0 - [facility] R[facility] 35.7 gm/dL [facility] LABORATORY Platelets 252 145 - 357 [facility] x10(3)/[facility] LABORATORY RDWSD 54.6 (H) 36.0 - [facility]0 [facility] LABORATORY RDWCV 16.2 (H) 11.4 - [facility] 13.8 % [facility] LABORATORY MPV 9.1 7.6 - 12.9 [facility] LABORATORY nRBC % Auto 0.0 % [facility] LABORATORY nRBC Abs Auto 0.000 0.000 - [facility] R[facility]AN 0.000 [facility] x10(3)/[facility] LABORATORY Specimen Anatomical Collection Method Collection Time Receive d Time (Source) Location / / Volume Laterality Blood specimen 08/08/2017 4:51 AM 018 5:14 (specimen) EST AM EST Resulting Agency Comment Spec In Lab Yonathan Smith MD HEMATOLOGY ORDERABLES Performing Organization Address City/State/ZIP Code Phon e Number [place] [id number] HOSPITAL LABORATORY Drive (ABNORMAL) Prothrombin Time (08/08/2017 [...] Organization Address City/State/[place] [address] (ABNORMAL) Basic Metabolic Panel (non-fasting) (08/08/2017 4:51 AM EST) athologist Signature Glucose Lvl 229 (H) 65 - 199 [facility] mg/dL [facility] LABORATORY Comment: Diabetes: >=200 mg/dL plus symp toms BUN 35 (H) 10 - 20 mg/dL [facility] LABORATORY Creatinine 1.57 (H) 0.80 - [...] 94 (L) 98 - 107 mmol/L [facility] LABORATORY CO2 25 22 - 31 mmol/L [facility] LABORATORY Anion Gap 17 (H) 5 - 15 mmol/L [facility] LABORATORY Calcium 7.9 (L) 8.5 - 10.5 mg/dL [facility] LABORATORY Estimated GFR 44 (L) >=60 [facility] LABORATORY Comment: The reported eGFR should be multiplied b y 1.2 for patients. The MDRD is not an appropriate measure o f renal function for patients with body mass extremes or in patients with acute kidney failure. http://Augure/DHnkdep http://Augure/DHMCnkf Specimen Anatomical Collection Method Collection Time Receive d Time (Source) Location / / Volume Laterality Blood specimen 08/08/2017 4:51 AM 018 5:14 (specimen) EST AM EST Resulting Agency Comment Spec In Lab Yonathan Smith MD CHEMISTRY ORDERABLES Performing Organization Address City/[facility] Phon e Number [address] POCT Glucose (08/08/2017 4:20 AM EST) athologist Signature POC Glucose 193 65 - 199 [facility] mg/dL [facility] LABORATORY Comment: Supplemental ranges: <140 mg/dL before meals <180 mg/dL all other times of the day Specimen Anatomical Collection Method Collection Time Receive d Time (Source) Location / / Volume Laterality Blood specimen 08/08/2017 4:20 AM 018 4:20 (specimen) EST AM EST Yonathan Smith MD POINT OF CARE TEST ORDERABLE S Performing Organization Address City/[facility]/ZIP Code Phon e Number [address] POCT Glucose (08/07/2017 11:11 PM EST) P athologist Signature POC Glucose 124 65 - 199 [facility] mg/dL [facility] LABORATORY Comment: Supplemental ranges: <140 mg/dL before meals <180 mg/dL all other times of the day Specimen Anatomical Collection Method Collection Time Receive d Time (Source) Location / / Volume Laterality Blood specimen 08/07/2017 11:11 8 (specimen) PM EST 11:11 PM EST Yonathan Smith MD POINT OF CARE TEST ORDERABLE S Performing Organization Address City/[facility]/[place] [address] (ABNORMAL) APTT (08/07/2017 10:18 PM EST) athologist Signature PTT 114 (H) 25 - 35 sec [facility] Smith MD HEMATOLOGY ORDERABLES Performing Organization Address [facility]/[place] [address] POCT Glucose (08/07/2017 8:10 PM EST) athologist Signature POC Glucose 140 65 - 199 [facility] mg/dL [facility] LABORATORY Comment: Supplemental ranges: <140 mg/dL before meals <180 mg/dL all other times of the day Specimen Anatomical Collection Method Collection Time Receive d Time (Source) Location / / Volume Laterality Blood specimen 08/07/2017 8:10 PM 018 8:10 (specimen) EST PM EST Yonathan Smith MD POINT OF CARE TEST ORDERABLE S Performing Organization Address City/[facility]/ZIP Code Phon e Number [address] POCT Glucose (08/07/2017 5:27 PM EST) athologist Signature POC Glucose 187 65 - 199 [facility] mg/dL [facility] LABORATORY Comment: Supplemental ranges: <140 mg/dL before meals <180 mg/dL all other times of the day Specimen Anatomical Collection Method Collection Time Receive d Time (Source) Location / / Volume Laterality Blood specimen 08/07/2017 5:27 PM 018 5:27 (specimen) EST PM EST Yonathan Smith MD POINT OF CARE TEST ORDERABLE S Performing Organization Address City/[facility]/ZIP Code Phon e Number [address] POCT Glucose (08/07/2017 3:29 PM EST) athologist Signature POC Glucose 86 65 - 199 [facility] mg/dL [facility] LABORATORY Comment: Supplemental ranges: <140 mg/dL before meals <180 mg/dL all other times of the day Specimen Anatomical Collection Method Collection Time Receive d Time (Source) Location / / Volume Laterality Blood specimen 08/07/2017 3:29 PM 018 3:29 (specimen) EST PM EST Yonathan Smith MD POINT OF CARE TEST ORDERABLE S Performing Organization Address [facility] [place] [address] (ABNORMAL) APTT (08/07/2017 2:50 PM EST) athologist Signature PTT 60 (H) 25 - 35 sec [facility] Smith MD HEMATOLOGY ORDERABLES Performing Organization Address City/[facility]/ZIP [facility] [place] [address] (ABNORMAL) POCT Glucose (08/07/2017 2:23 PM EST) athologist Signature POC Glucose 55 (L) 65 - 199 [facility] mg/dL [facility] [...] Address City/State/ZIP Code Phon e Number [address] POCT Glucose (08/07/2017 12:08 PM EST) P athologist Signature POC Glucose 77 65 - 199 [facility] mg/dL [facility] [...] Organization Address City/State/[place] [address] (ABNORMAL) Differential, Automated (08/07/2017 7:30 AM EST) Patholo gist Method Time Signature Neutrophils % 73.8 % [facility] LABORATORY Neutr Abs (ANC) 7.17 (H) 1.70 - [facility] 6.10 [facility] x10(3)/[facility] LABORATORY Lymphocytes % 12.2 % [facility] LABORATORY Lymphocytes Abs 1.2 0.9 - 3.2 [facility] x10(3)/[facility] LABORATORY Monocytes % 9.0 % [facility] LABORATORY Monocyte Abs 0.9 0.3 - 0.9 [facility] x10(3)/[facility] LABORATORY Eosinophils % 3.9 % [facility] LABORATORY Eosinophils Abs 0.4 0.0 - 0.4 [facility] x10(3)/[facility] LABORATORY Basophils % 0.6 % [facility] LABORATORY Basophils Abs 0.1 0.0 - 0.1 [facility] x10(3)/[facility] LABORATORY Immature Gran % 0.50 % [facility] LABORATORY Comment: Immature granulocytes(IG's)percentage an d absolute count will include metamyelocytes, myelocytes, and promyelo cytes. Blood smears from CBCs yielding IG's will be scanned manually for concor dance. If this scan disagrees with the automated IG or if promyelocytes are not ed, a manual differential will be performed. Melisa Gran Abs 0.05 (H) 0.00 - 0.04 x10(3)/[facility] LABORATORY Specimen Anatomical Collection Method Collection Time Receive d Time (Source) Location / / Volume Laterality Blood specimen 08/07/2017 7:30 AM 018 7:45 (specimen) EST AM EST Resulting Agency Comment Spec In Lab Yonathan Smith MD HEMATOLOGY ORDERABLES Performing Organization Address City/State/[place] [address] (ABNORMAL) Hemogram (08/07/2017 7:30 AM EST) Analysis Performed At Patho logist Time Signature WBC 9.7 (H) 4.0 - 9.5 [facility] x10(3)/[facility] LABORATORY RBC 3.54 (L) 4.58 - [facility] 5.54 [facility] x10(6)/[facility] LABORATORY Hemoglobin 9.9 (L) 13.7 - [facility] 16.5 gm/dL [facility] LABORATORY Hematocrit 32.3 (L) 40.5 - [facility] 48.5 % [facility] LABORATORY MCV 91.2 82.9 - [facility] 93.[facility] LABORATORY MCH 28.0 27.5 - [facility] R[facility] 32.1 pg [facility] LABORATORY MCHC 30.7 (L) 32.0 - [facility] 35.7 gm/dL [facility] LABORATORY Platelets 312 145 - 357 [facility] x10(3)/[facility] LABORATORY RDWSD 53.2 (H) 36.0 - [facility] 45.0 [facility] RDWCV 16.0 (H) 11.4 - [facility] R[facility] 13.8 % [facility] LABORATORY MPV 8.9 7.6 - 12.9 [facility] LABORATORY nRBC % Auto 0.0 % [facility] LABORATORY nRBC Abs Auto 0.000 0.000 - [facility] 0.000 [facility] x10(3)/[facility] LABORATORY Specimen Anatomical Collection Method Collection Time Receive d Time (Source) Location / / Volume Laterality Blood specimen 08/07/2017 7:30 AM 018 7:45 (specimen) EST AM EST Resulting Agency Comment Spec In Lab Yonathan Smith MD HEMATOLOGY ORDERABLES Performing Organization Address City/State/Z[place] [address] (ABNORMAL) Basic Metabolic Panel (non-fasting) (08/07/2017 7:30 AM EST) P athologist Signature Glucose Lvl 80 65 - 199 [facility] mg/dL [facility] LABORATORY Comment: Diabetes: >=200 mg/dL plus symp toms BUN 31 (H) 10 - 20 mg/dL [facility] LABORATORY Creatinine 1.22 0.80 - 1.50 [...] Chloride 99 98 - 107 mmol/L [facility] LABORATORY CO2 29 22 - 31 mmol/L [facility] LABORATORY Anion Gap 12 5 - 15 mmol/L [facility] LABORATORY Calcium 8.5 8.5 - 10.5 mg/dL [facility] LABORATORY Estimated GFR 59 (L) >=60 [facility] LABORATORY Comment: The reported eGFR should be multiplied b y 1.2 for patients. The MDRD is not an appropriate measure o f renal function for patients with body mass extremes or in patients with acute kidney failure. http://tinyurl.Recyclebank/DHnkdep http://[employer].com/DHMCnkf Specimen Anatomical Collection Method Collection Time Receive d Time (Source) Location / / Volume Laterality Blood specimen 08/07/2017 7:30 AM 018 7:45 (specimen) EST AM EST Resulting Agency Comment Spec In Lab Yonathan Smith MD CHEMISTRY ORDERABLES Performing Organization Address City/[facility]/ZIP Code Phon e Number [address] POCT Glucose (08/07/2017 7:27 AM EST) athologist Signature POC Glucose 81 65 - 199 [facility] mg/dL [facility] [...] TEST ORDERABLE S Performing Organization Address City/[facility]/ZIP Code Phon e Number [address] APTT (08/07/2017 7:04 AM EST) athologist Signature PTT 34 25 - 35 sec [facility] Smith MD HEMATOLOGY ORDERABLES Performing Organization Address City/[facility]/ZIP Code Phon e Number [address] (ABNORMAL) Prothrombin Time (08/07/2017 7:04 AM EST) athologist Signature PT 17.3 (H) 11.8 - 14.0 [facility] LABORATORY INR 1.4 (H) 0.9 - 1.1 [facility] [...] Address City/State/ZIP Code Phon e Number [address] POCT Glucose (08/07/2017 4:03 AM EST) athologist Signature POC Glucose 93 65 - 199 [facility]/dL [facility] [...] Address City/State/ZIP Code Phon e Number [address] POCT Glucose (08/07/2017 12:04 AM EST) athologist Signature POC Glucose 107 65 - 199 [facility] mg/dL [facility] [...] Address City/State/ZIP Code Phon e Number [address] POCT Glucose (08/06/2017 7:56 PM EST) P athologist Signature POC Glucose 178 65 - 199 [facility] mg/dL [facility] [...] Address City/State/ZIP Code Phon e Number [address] TcPO2 (08/06/2017 2:32 PM EST) Component Value Ref Test Analysis Performed At Patholo gist Range Method Time Signature VB Text Department: Vascular Surgery Lab VASCUBASE Report Patient: [id number] (GREGORY HOANG) CPT: 3857104 ICD10: I99.8 Referring Physician: YONATHAN SMITH ?? [...] Group 1) 0000 (Not Given - Provider: Chris Kendrick, RN - Reason: Order parameters not met)0400 [...] mg 0825 (Giv en - Provider: Chiquis Mcgrath, VAMSI)2011 (Given - Provider: Henrique Marks RN) 09 [...]
Routine documented in this encounter Care Teams Receiving Team Member Relationship Specialty Start Date End Date Lovely Vicente MD PCP - General 04/16/[address] [place] [address] documented as of this encounter
--- OUTSIDE RECORDS SUMMARY | 2022-03-27 09:23 | XMS_ITS | Encounter Summary ---
:1945 Author Organization [facility] [place] [address] Care Team Providers Name Role Phone Lovely Vicente MD Primary Care Provider Reason for Visit Auth/Cert Specialty Diagnoses / Procedures Referred By Contact Refer red To Contact Diagnoses Critical lower limb ischemia CELLULITIS RT FOOT Procedures EMERGENCY Referral ID Status Reason Start Date Expiration Date Visits Requ ested Visits Authorized [id number] 1 1 Encounter Details Date Type Department Care Team Description 08/06/2017 Clinical Support Same Day at [facility]schem[facility] [place] [address] Social History Tobacco Use Types Packs/Day [...] noother symptoms except severe right foot pain. [facility] clinic called as pt on route [...] Zulma Dolan MD [facility] [address] [place], [place] [address] (Wo rk) 05/28/2022 Laboratory Appointment Lab 05/28/2022 Office Visit Cardiology Zulma Dolan [place] [facility] [address] Liz Poole PA [facility] [place] [address] 06/10/2022 Office Visit Dermatology Laura Scherer MD [facility] [address] [place], [place] [address] (Wo rk) documented as of [...] 444 ms MUSE SYSTEM (Bezet) Calculated P [place] 44 degrees MUSE SYSTEM Calculated R [place] -31 degrees MUSE SYSTEM Calculated T [place] 106 degrees MUSE SYSTEM INTERPRETATION Normal sinus [...] disorder documented in this encounter Care Teams Coal Shoveler Relationship Specialty Start Date End Date Lovely Vicente MD PCP - General 04/16/[address] [place] [address] documented as of this encounter
--- OUTSIDE RECORDS SUMMARY | 2022-03-27 09:23 | XMS_ITS | Encounter Summary ---
:1945 Author Organization [place] [address] Care Team Providers Name Role Phone Lovely Vicente MD Primary Care Provider Reason for Visit Auth/Cert Specialty Diagnoses / Procedures Referred By Contact Refer red To Contact Diagnoses Critical lower limb ischemia CELLULITIS RT FOOT Procedures EMERGENCY Referral ID Status Reason Start Date Expiration Date Visits Requ ested Visits Authorized [id number] 1 1 Encounter Details Date Type Department Care Team Description 08/06/2017 [facility] [place] [address] Social History Tobacco Use Types Packs/Day [...] Cardiology Zulma Dolan MD [facility] [address] [place], [place] [address] (Wo rk) 05/28/2022 Laboratory Appointment Lab 05/28/2022 Office Visit Cardiology Zulma Dolan MD [facility] [place] [address] Liz Poole PA [facility] [place] [address] 06/10/2022 Office Visit Dermatology Laura Scherer MD [facility] [address] [place], [place] [address] (Wo rk) documented as of this encounter Visit Diagnoses Not on filedocumented in this encounter Care Teams Shoveler Relationship Specialty Start Date End Date Lovely Vicente MD PCP - General 04/16/[address] [place] [address] documented as of this encounter
--- OUTSIDE RECORDS SUMMARY | 2022-03-27 09:23 | XMS_ITS | Encounter Summary ---
:1945 Author Organization [facility] [place] [address] Care Team Providers Name Role Phone Loevly Vicente MD Primary Care Provider Reason for Visit Auth/Cert Specialty Diagnoses / Procedures Referred By Contact Refer red To Contact Diagnoses Critical lower limb ischemia CELLULITIS RT FOOT Procedures EMERGENCY Referral ID Status Reason Start Date Expiration Date Visits Requ ested Visits Authorized [id number] 1 1 Encounter Details Date Type Department Care Team Description 08/06/2017 Laboratory Appointment Lab at [facility] Ischemia of foot [facility] [place] [address] Social History Tobacco Use Types Packs/Day [...] Description 05/28/2022 Appointment Cardiology Zulma Dolan MD [facility] er [address] [place] 0[address] (Wo rk) 05/28/2022 Laboratory Appointment Lab 05/28/2022 Office Visit Cardiology Zulma Dolan MD [facility] [place] [address] Liz Poole PA [facility] [place] [address] 06/10/2022 Office Visit Dermatology Laura Scherer MD [facility] ER [address] [facility] [place] [place] [address] (Wo rk) documented as [...] Signature Prealbumin 19 (L) 20 - 40 [facility] mg/dL [facility] LABORATORY Comment: Prealbumin levels are [...] Organization Address City/State/[place] [address] (ABNORMAL) Basic Metabolic Panel (non-fasting) (08/06/2017 12:32 PM EST) P athologist Signature Glucose Lvl 92 65 - 199 [facility] mg/dL [facility] LABORATORY Comment: Diabetes: [...] HOSPITAL LABORATORY Estimated GFR 53 (L) >=60 [facility] LABORATORY Comment: The reported eGFR should be multiplied b y 1.2 for patients. The MDRD is not an appropriate measure o f renal function for patients with body mass extremes or in patients with acute kidney failure. http://[employer]Vision [employer]/DHnkdep http://[employer]/DHMCnkf Specimen Anatomical Collection Method Collection Time Receive d Time (Source) Location / / Volume Laterality Blood specimen 08/06/2017 12:32 8 1:15 (specimen) PM EST PM EST Resulting Agency Comment Spec In Lab Arik Clement MD CHEMISTRY ORDERABLES Performing Organization Address City/State/[place] [address] (ABNORMAL) Hemogram (08/06/2017 12:32 PM EST) Analysis Performed At Patho logist Time Signature WBC 11.8 (H) 4.0 - 9.5 [facility] x10(3)/[facility] LABORATORY RBC 3.49 (L) 4.58 - [facility] 5.54 [facility] x10(6)/[facility] LABORATORY Hemoglobin 9.9 (L) 13.7 - [facility] 16.5 gm/dL [facility] LABORATORY Hematocrit 32.0 (L) 40.5 - [facility] 48.5 % [facility] LABORATORY MCV 91.7 82.9 - [facility] 93.1 [facility] LABORATORY MCH 28.4 27.5 - KATALINA DAVIS 32.1 pg [facility] LABORATORY MCHC 30.9 (L) 32.0 - KATALINA DAVIS 35.7 gm/dL [facility] LABORATORY Platelets 326 145 - 357 [facility] x10(3)/[facility] LABORATORY RDWSD 53.4 (H) 36.0 - KATALINA DAVIS 45.0 [facility] LABORATORY RDWCV 16.0 (H) 11.4 - K[facility]INA RYAN 13.8 % [facility] LABORATORY MPV 9.1 7.6 - 12.9 [facility] LABORATORY nRBC % Auto 0.0 % [facility] LABORATORY nRBC Abs Auto 0.000 0.000 - KATALINA DAVIS 0.000 [facility] x10(3)/[facility] LABORATORY Specimen Anatomical Collection Method Collection Time Receive d Time (Source) Location / / Volume Laterality Blood specimen 08/06/2017 12:32 8 1:15 (specimen) PM EST PM EST Resulting Agency Comment Spec In Lab Arik Clement MD HEMATOLOGY ORDERABLES Performing Organization Address City/State/ZIP Code Phon e Number [place] [phone] HOSPITAL LAB[address]ORY [address] documented in this encounter Visit Diagnoses Diagnosis Ischemia of foot Unspecified circulatory system disorder documented in this encounter Care Teams Licensed Massage Therapist Relationship Specialty Start Date End Date Lovely Vicente MD PCP - General 04/16/[address] [place] [address] documented as of this encounter
--- OUTSIDE RECORDS SUMMARY | 2022-03-27 09:23 | XMS_ITS | Encounter Summary ---
:1945 [place] [address] Care Team Providers Name Role Phone Lovely Vicente MD Primary Care Provider Reason for Visit Auth/Cert Specialty Diagnoses / Procedures Referred By Contact Refer red To Contact Diagnoses Critical lower limb ischemia CELLULITIS RT FOOT Procedures EMERGENCY Referral ID Status Reason Start Date Expiration Date Visits Requ ested Visits Authorized [id number] 1 1 Encounter Details Date Type Department Care Team Description 08/09/2017 Anesthesia Event Main Operating Room Daniele Lizama MD [facility] [place] [address] [facility] Rob Jones MD [facility] [place] [address] [place] [address] Anesthesia Record Procedure Summary Procedure Name [...] Knowles, Dory arm), right; VAMSI Rios, RN hvma-pdp-vnvyog catheter system; 20 gauge; 08/16/17; 1047 PIV 07/29/17; 1413; median 07/29/17 1413 by 08/16/17 1047 by cubital vein (antecubital Magdalene Hickey Williams, Dory fossa), left; VAMSI Wyatt, RN wzos-bpa-scuxav catheter system; 20 gauge; 08/16/17; 1047 PIV 08/06/17; 1742; cephalic 08/06/17 1742 by 0920 by vein (lateral side of Taylor Laureano Danah y, Caitlyn C, arm), right; VAMSI BONNER uorv-lds-ohisuz catheter system; 22 gauge, 1 in length; Eliseo LAUREANO RN VAS; distraction, intradermal injection, tolerated well, appears comfortable; 0; 08/16/17; 0920 Wound 08/07/17; 1335; knee; 08/07/17 1335 by 08/16/17 1047 by laceration; wound occured Barbara Albert iams, Dory TITRATOR; 08/16/17; 1047 VAMSI Alonzo, RN PIV 08/07/17; 1734; cephalic 08/07/17 1734 by 1047 by vein (lateral side of Kendrick, Carlos W, Willia ms, Dory arm), left; MARCIE Wyatt RN jxwz-zzq-qhtscc catheter system; 22 gauge; distraction, intradermal injection, [...] Santillan MD - 08/09/2017 9:01 AM EST [facility] Department of Anesthesiology Post-procedure Note Patient: Don Fatima Procedure Summary Date Anesthesia Start Anesthesia Stop Room / Location 08/09/17 0802 0901 [facility] OR 14 / [facility] MAIN OR Procedure Diagnosis Surgeon Responsible Provider AMPUTATION, 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 Nerve [...] MD at [facility] ENDOSCOPY ??? PRO ENDOSCOPY W/VIDEO-ASST VEIN HARVEST, CABG Right 07/07/2017 ENDOSCOPIC HARVEST VEIN(S) FOR CABG (WRVU 0.31) performed by Yuan Retana MD at [facility] MAIN OR ??? PRO THYROIDECTOMY 03/28/2013 THYROIDECTOMY, TOTAL OR COMPLETE performed by Manny Mcknight MD at [facility] MAIN OR Social History Substance Use [...] adequate IV access. Brody Santillan MD PGY-2, Clay Machine Operator Pager #[phone] Anesthesiology Staff (Dewhirst): Pre-op summary note as [...] Description 05/28/2022 Appointment Cardiology Zulma Dolan MD [facility] [address] [place], [place] [address] (Wo rk) 05/28/2022 Laboratory Appointment Lab 05/28/2022 Office Visit Cardiology Zulma Dolan MD [facility] [place] [address] Liz Poole PA [facility] [place] [address] 06/10/2022 Office Visit Dermatology Laura Scherer MD [facility] [address] [place], [place] [address] (Wo rk) documented as of [...] Length: 10 cm Gauge: 21 Needle Type: C-haptj-hkatc Medication injection made in crementally with aspirations. [...] Procedure) documented in this encounter Care Teams Ppap Coordinator Relationship Specialty Start Date End Date Lovely Vicente MD PCP - General 04/16/15 [facility] [address] [place] [address] documented as of this encounter
--- OUTSIDE RECORDS SUMMARY | 2022-03-27 09:23 | XMS_ITS | Encounter Summary ---
:1945 [place] [address] Care Team Providers Name Role Phone Lovely Vicente MD Primary Care Provider Encounter Details Date Type Department Care Team Description 08/04/2017 Notes Only Pain Management at Barbra Bruno, STACIE [facility] [place] [address] [place] [address] [phone] (Wo rk) Social History Tobacco Use Types [...] bid) at this time. Barbra Soares, MSN, SENSITIZER-BC, [facility] documented in this encounter Plan of Treatment Upcoming Encounters Date Type Specialty Care Team Description 05/28/2022 Appointment Cardiology Zulma Dolan MD [facility] [address] [place], [place] [address] (Wo rk) 05/28/2022 Laboratory Appointment Lab 05/28/2022 Office Visit Cardiology Zulma Dolan MD [facility] [place] [address] Liz Poole PA [facility] [place] [address] 06/10/2022 Office Visit Dermatology Laura Scherer MD [facility] [address] [place], [place] [address] (Wo rk) documented as of this encounter Visit Diagnoses Not on filedocumented in this encounter Care Teams Animal Bounty Hunter Relationship Specialty Start Date End Date Lovely Vicente MD PCP - General 04/16/[address] [place] [address] documented as of this encounter
--- OUTSIDE RECORDS SUMMARY | 2022-03-27 09:24 | XMS_ITS | Encounter Summary ---
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 Patient [...] [facility] ??? 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 Hank Zhang Vascular Surgery, PGY2 Pager #[phone] Associated attestation - Arik Clement MD - [...] Zulma Dolan MD [facility] [place], [place] [address] (Wo rk) 05/28/2022 Laboratory Appointment Lab 05/28/2022 Office Visit Cardiology Zulma Dolan MD [facility] [place] [id number] Liz Poole PA [facility] [place] [address] 06/10/2022 Office Visit Dermatology Laura Scherer MD [facility] [address] [place], [place] [address] (Wo rk) [...] Test Analysis Performed At [facility] Range Method Time Signature VB Text Department: Vascular Surgery Lab VASCUBASE Report Patient: [id number] (GREGORY FATIMA) CPT: 49687 ICD10: I82.541 Referring Physician: TAMIKO JIMÉNEZ ?? [...] Signature POC Glucose 128 65 - 199 [facility] mg/dL [facility] LABORATORY [...] Address City/State/ZIP Code Phon e Number [address] (ABNORMAL) D-Dimer, Quantitative (07/29/2017 2:15 PM EST) [facility] Boni Method Time Signature D-Dimer, Quant 1,699 (H) 0 - 500 [facility] FEU ng/ml [facility] LABOR[facility]ORY Comment: The D-Dimer assay is used [...] [place] [address] (ABNORMAL) Differential, Automated (07/29/2017 2:15 PM EST) [facility] Method Time Signature Neutrophils % 82.5 % [facility] LABORATORY Neutr Abs (ANC) 10.21 (H) 1.70 - [facility] 6.10 [facility] x10(3)/[facility] L LABORATORY Lymphocytes % 7.1 % [facility] LABORATORY Lymphocytes Abs 0.9 0.9 - 3.2 [facility] x10(3)/[facility] LABORATORY Monocytes % 6.5 % [facility] LABORATORY Monocyte Abs 0.8 0.3 - 0.9 [facility] x10(3)/[facility] LABORATORY Eosinophils % 2.7 % [facility] LABORATORY Eosinophils Abs 0.3 0.0 - 0.4 [facility] x10(3)/[facility] LABORATORY Basophils % 0.6 % [facility] LABORATORY Basophils Abs 0.1 0.0 - 0.1 [facility] x10(3)/[facility] LABORATORY Immature Gran % 0.60 [...] Gran Abs 0.08 (H) 0.00 - 0.04 x10(3)/[facility] LABORATORY Specimen Anatomical Collection Method Collection Time Receive d Time (Source) Location / / Volume Laterality Blood specimen 07/29/2017 2:15 PM 018 2:36 (specimen) EST PM EST Resulting Agency Comment Spec In Lab Tamiko Jiménez MD HEMATOLOGY ORDERABLES Performing Organization Address City/State/ZIP [place] [address] (ABNORMAL) Hemogram (07/29/2017 2:15 PM EST) Analysis Performed At Patho logist Time Signature WBC 12.4 (H) 4.0 - 9.5 [facility] x10(3)/[facility] LABORATORY RBC 4.17 (L) 4.58 - [facility] 5.54 [facility] x10(6)/[facility] LABORATORY Hemoglobin 12.1 (L) 13.7 - [facility] 16.5 gm/dL [facility] LABORATORY Hematocrit 38.1 (L) 40.5 - [facility] 48.5 % [facility] LABORATORY MCV 91.4 82.9 - [facility] [address] [facility] LABORATORY MCH 29.0 27.5 - [facility] 32.1 pg [facility] LABORATORY MCHC 31.8 (L) 32.0 - [facility] RYAN 35.7 gm/dL [facility] LABORATORY Platelets 204 145 - 357 [facility] x10(3)/[facility] LABORATORY RDWSD 50.5 (H) 36.0 - [facility] [address] [facility] LABORATORY RDWCV 15.3 (H) 11.4 - [facility] RYAN 13.8 % [facility] LABORATORY MPV 9.4 7.6 - 12.9 [facility] LABORATORY nRBC % Auto 0.0 % [facility] LABORATORY nRBC Abs Auto 0.000 0.000 - [facility] 0.000 [facility] x10(3)/[facility] LABORATORY Specimen Anatomical Collection Method Collection Time Receive d Time (Source) Location / / Volume Laterality Blood specimen 07/29/2017 2:15 PM 018 2:36 (specimen) EST PM EST Resulting Agency Comment Spec In Lab Tamiko Jiménez MD HEMATOLOGY ORDERABLES Performing Organization Address City/State/ZIP [place] [address] (ABNORMAL) Prothrombin Time (07/29/2017 [...] Organization Address City/State/ZIP Code Phon e Number [place] [id number] Arterial Duplex Leg, Unil (07/29/2017 11:50 AM EST) Component Value Ref Test Analysis Performed At [facility] Range Method Time Signature VB Text Department: Vascular Surgery Lab VASCUBASE Report Patient: [id number] (GREGORY FATIMA) CPT: 43910 ICD10: Z09;I97.610 Referring Physician: TAMIKO JIMÉNEZ ?? [...] Test Analysis Performed At [facility] Range Method Time Signature VB Text Department: Vascular Surgery Lab VASCUBASE Report Patient: [id number] (GREGORY FATIMA) CPT: 94591 ICD10: I82.441 Referring Physician: TAMIKO JIMÉNEZ ?? [...] he calf. Notification: Marquis Pathak MD (pager #[phone]) was notif ied of the preliminary findings. [...] STAT documented in this encounter Care Teams Fresh Foods Cake Decorator Relationship Specialty Start Date End Date Lovely Vicente MD PCP - General 04/16/[address] [place] [address] [address] [place] [address] documented as of this encounter
--- OUTSIDE RECORDS SUMMARY | 2022-03-27 09:24 | XMS_ITS | Encounter Summary ---
:1945 [place] [address] Care Team Providers Name Role Phone Lovely Vicente MD Primary Care Provider Encounter Details Date Type Department Care Team Description 08/04/2017 Notes Only Cardiac Surgery Makayla Wilson RN PROGRESSIVE CARE [facility] [place] [address] CARDIAC SURGERY [phone] [place], [place] [address] (Wo rk) Social [...] Zulma Dolan MD [facility] [address] [place], [place] [address] (Wo rk) 05/28/2022 Laboratory Appointment Lab 05/28/2022 Office Visit Cardiology Zulma Dolan MD [facility] [address] Liz Poole PA [facility] [place] [address] 06/10/2022 Office Visit Dermatology Laura Scherer MD [facility] [address] [facility] [place], [place] [address] (Wo rk) documented as of this encounter Visit Diagnoses Not on filedocumented in this encounter Care Teams Project Controls Scheduler Relationship Specialty Start Date End Date Lovely Vicente MD PCP - General 04/16/[address] [place] [address] documented as of this encounter
--- OUTSIDE RECORDS SUMMARY | 2022-03-27 09:24 | XMS_ITS | Encounter Summary ---
:1945 Author Organization [facility] [place] [address] Care Team Providers Name Role Phone Lovely Vicente MD Primary Care Provider Reason for Visit Auth/Cert Specialty Diagnoses / Procedures Referred By Contact Refer red To Contact Diagnoses Critical lower limb ischemia CELLULITIS RT FOOT Procedures EMERGENCY Referral ID Status Reason Start Date Expiration Date Visits Requ ested Visits Authorized [id number] 1 1 Encounter Details Date Type Department Care Team Description 08/04/2017 [facility] [place] thrombosis of [facility] [place] [phone] Social History Tobacco Use Types Packs/Day Years [...] Description 05/28/2022 Appointment Cardiology Zulma Dolan MD [facility] [place], [place] [address] (Wo rk) 05/28/2022 Laboratory Appointment Lab 05/28/2022 Office Visit Cardiology Zulma Dolan MD [facility] [place] [address] [facility] [place] [address] 06/10/2022 Office Visit Dermatology Laura Scherer MD [facility] [address] [place], [place] [address] (Wo rk) documented as [...] Test Analysis Performed At [facility] Range Method Time Signature VB Text Department: Vascular Surgery Lab VASCUBASE Report Patient: [id number] (DON HOANG) CPT: 97651 ICD10: I82.541 Referring Physician: MEÑO HUTSON ?? 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
--- OUTSIDE RECORDS SUMMARY | 2022-03-27 09:24 | XMS_ITS | Encounter Summary ---
:1945 Author Organization [facility] [place] [address] Care Team Providers Name Role Phone Lovely Vicente MD Primary Care Provider Reason for Visit Reason Comments Foot Pain Auth/Cert Specialty Diagnoses / Procedures Referred By Contact Refer red To Contact Diagnoses Ischemic foot Procedures NAYE OBSVO Referral ID Status Reason Start Date Expiration Date Visits Requ ested Visits Authorized [id number] 1 1 Encounter Details Date Type Department Care Team Description 07/27/2017 Emergency 1 [facility] Lokesh Swenson MD [facility] [place] [address] Femoral artery pseudo-aneurysm, right; [facility] Tam Bauman MD [facility] [place] [address] [place] [address] Social History Tobacco Use Types Packs/Day [...] Gregory Fatima Patient Age: 72 y.o. Language: Hungarian Race: White Ethnicity: Not nor Admit date: [...] please contact your inpatient physician through the [facility] Insurance Instructor . Issues after hours and on weekends [...] RLE critical limb ischemia, who presented to [facility] with worsening RLE pain. Pt post-op course after CABG was significant for paroxysmal Afib, and he was started on Coumadin given elevated [id number] score. 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 He [...] in the last 7068 hours. Invalid input(s): [id number] Recent Labs 07/08/17 0400 07/07/17 0515 07/06/17 [...] (it was low at 1.6 here at [facility]) 7. Use the tramadol if dilaudid or tylenol is not working 8. Stop taking the potassium supplement - your blood potassium level was elevated. Ask your doctors at future visits if this should be restarted. 9. Antibiotic for 5 days recommended by cardiothoracic surgery for chest wound drainage Follow-Up Appointments Vascular surgery as previously schedule Your Inpatient Doctor(s) at [facility]: CARLOS ALBERTO ROSALES MD General Instructions None Future Appointments and Orders Future Appointments Provider Department Dept Phone 07/30/2017 8:30 AM OSWALDO, THREE L Lab 3L [facility] [phone] 07/30/2017 9:40 AM Danette Maxwell APRN Cardiology at [place] [phone] 08/04/2017 1:00 PM Daniele Mooney [place] Vascular Lab at [place] [phone] 08/04/2017 2:15 PM Arik Clement MD Vascular Surgery at [place] [phone] 08/11/2017 10:00 AM [facility] ROOM 2 XRay at [place] [phone] Please go to Registered Public Health Nurse Area 3T ([place] Location). 08/11/2017 11:00 AM Yuan Retana MD Cardiac Surgery at [place] [phone] 09/07/2017 3:00 PM LAB, THREE L Lab 3L [facility] [phone] 09/07/2017 4:00 PM Luz Prescott MD Endocrinology at [place] [phone] Discharge References/Attachments None documented in this encounter [...] (it was low at 1.6 here at [facility]) 3. Use the tramadol if dilaudid or tylenol is not working 4. Stop taking the potassium supplement - your blood potassium level was elevated. Ask your doctors at future visits if this should be restarted. 5. Antibiotic for 5 days recommended by cardiothoracic surgery for chest wound drainage Follow-Up Appointments Vascular surgery as previously schedule Your Inpatient Doctor(s) at [facility]: CARLOS ALBERTO ROSALES MD documented [...] Gas) No results found for: PHART, PO2ART, RHA1LXT Assessment/Plan: 72 y.o. male s/p CABG in [...] intervention: Education Nutrition Recommendations: Recommend continuation of [facility], CHO2 diet order Patient and [...] Orders Diet Daily Healthy Menu Choices/Cardiac diet ([facility]-Diet) 60/ CHO counting level 2 Frequency: Effective Now Number of Occurrences: Until Specified Admit Weight: 83.92 kg Estimated body mass index is 28.13 kg/(m^2) as calculated from the following: Height as of this encounter: 172.7 cm (5' 8). Weight as of this encounter: 83.9 kg (185 lb). [place] body weight: 68.4 kg (150 lb 12.7 [...] RLE critical limb ischemia, who presented to [facility] with worsening RLE pain. Visited [...] spent >30 minutes (Day of Discharge Code 31945) involved in the final examination of the [...] Melanoma ID: 72 y.o. Male presents to [facility] with persistent pain b/l lower extremities History of Present Illness: HPI 72 y.o. 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 Pt post-op course after CABG was significant for paroxysmal Afib, and he was started on Coumadin given elevated [id number] score. 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 He [...] MD at [facility] MAIN OR Prior To Admission [...] Procedure Component Value Units Date/Time Blood culture [[id number]] Collected: 07/09/1739 Lab Status: Final result Specimen: Blood from Arm, Right Updated: 07/14/17701 Blood Culture No growth at 5 days. Blood culture [[id number]] Collected: 07/09/170 Lab Status: Final result Specimen: [...] limb ischemia following CABG, who presented to [facility] ED from home with persistent [...] continued Diet Daily Healthy Menu Choices/Cardiac diet ([facility]-Diet) 60/60/75 CHO counting level 2Cardiac, low salt, CHO 2 Discharge planning Pending improvement in pain control PT/OT/Speech PT ordered Lines/Access PIV Ocasio catheter No DVT/GI Prophylaxis Lovenox bridge to Coumadin, SCD. Code status Full Code Family PCP Lovely Vicente MD [phone] Attestation Please see my note for details [...] encounter Miscellaneous Notes Plan of Care - [place]-Joyce Damian, PT - 07/27/2017 3:26 PM EST [...] Anticipated Discharge Disposition: home with assist Pager: [phone] JOYCE KING, PT Inpatient Physical Therapy 2017 [...] functional test(s) [facility]. Current ability measures, co-morbidities and clinical judgement [...] a lovenox bridge. Mr. Fatima returns to [facility] ED tonight because of ongoing [...] MD at [facility] MAIN OR MEDICATIONS: No current [...] up in clinic 1-2 weeks after discharge. [facility] Vascular Surgery Plan of Care - [...] Description 05/28/2022 Appointment Cardiology Zulma Dolan MD [facility] [place], [place] [address] (Wo rk) 05/28/2022 Laboratory Appointment Lab 05/28/2022 Office Visit Cardiology Zulma Dolan MD [facility] [place] [address] Liz Poole PA [facility] [place] [address] 06/10/2022 Office Visit Dermatology Laura Scherer MD [facility] [address] [place], [place] [address] (Wo rk) documented as [...] section. TYPE AND SCREEN STAT 07/27/2017 12:53 ([facility]/CGP/SHANDA) AM EST BASIC METABOLIC PANEL STAT 07/27/2017 12:53 Re sults for this (NON-FASTING) AM EST procedure are in the results section. documented in this encounter Results POCT Glucose (07/27/2017 11:53 AM EST) P athologist Signature POC Glucose 175 65 - 199 [facility] mg/dL [facility] Comment: [...] Organization Address City/State/[place] [address] Arterial Duplex Leg, Unil (07/27/2017 7:40 AM EST) Component Value Ref Test Analysis Performed At Patholo gist Range Method Time Signature VB Text Department: Vascular Surgery Lab VASCUBASE Report Patient: [id number] (GREGORY FATIMA) CPT: 14708 ICD10: I97.610;I72.4;Z09 Referring Physician: TAM BAUMAN ?? [...] Bauman MD VASCULAR ORDERABLES Performing Organization Address City/[facility]/ZIP Code Phon e Number VASCUBASE POCT Glucose (07/27/2017 6:51 AM EST) P athologist Signature POC Glucose 96 65 - 199 [facility] mg/dL [facility] Comment: [...] Organization Address City/[facility]/ZIP [facility] Phon e Number [address] ABORH Recheck Status (07/27/2017 12:53 AM EST) Patholo gist Method Time Signature ABORH Type Completed [facility] LABORATORY Specimen Anatomical Collection Method Collection Time Receive d Time (Source) Location / / Volume Laterality Blood specimen 07/27/2017 12:53 8 (specimen) AM EST 12:58 AM EST Resulting Agency Comment Spec In Lab Angela Swenson MD BLOOD BANK ORDERABLES Performing Organization Address City/[facility]/[place] [address] Gold Tube HOLD (07/27/2017 12:53 AM EST) P athologist Signature Gold Hold Sample in [facility]. [facility] Specimen Anatomical Collection Method Collection Time Receive d Time (Source) Location / / Volume Laterality Blood specimen Venous Draw / 07/27/2017 12:53 07/27/19 18 1:01 (specimen) Unknown AM EST AM EST Angela Swenson MD CHEMISTRY ORDERABLES Performing Organization Address City/State/[place] [address] (ABNORMAL) Differential, Automated (07/27/2017 12:53 AM EST) Patholo gist Method Time Signature Neutrophils % 75.0 % [facility]OR[facility]ORY Neutr Abs (ANC) 11.30 (H) 1.70 - [facility] 6.10 [facility] x10(3)/[facility] LABORATORY Lymphocytes % 9.9 % [facility] Lymphocytes Abs 1.5 0.9 - 3.2 [facility] x10(3)/[facility] LABORATORY Monocytes % 8.6 % [facility] LABOR[facility]ORY Monocyte Abs 1.3 (H) 0.3 - 0.9 [facility] x10(3)/[facility] LABORATORY Eosinophils % 4.8 % [facility] LAB[facility]ORY Eosinophils Abs 0.7 (H) 0.0 - 0.4 [facility] x10(3)/[facility] LABORATORY Basophils % 0.8 % [facility] LAB[facility] Basophils Abs 0.1 0.0 - 0.1 [facility] x10(3)/[facility] LABORATORY Immature Gran % 0.90 % WHITE [...] Gran Abs 0.13 (H) 0.00 - 0.04 x10(3)/[facility] LABORATORY Specimen Anatomical Collection Method Collection Time Receive d Time (Source) Location / / Volume Laterality Blood specimen 07/27/2017 12:53 8 1:00 (specimen) AM EST AM EST Resulting Agency Comment Spec In Lab Angela Swenson MD HEMATOLOGY ORDERABLES Performing Organization Address City/State/[place] [address] (ABNORMAL) Hemogram (07/27/2017 12:53 AM EST) Analysis Performed At Patho logist Time Signature WBC 15.0 (H) 4.0 - 9.5 [place] x10(3)/[facility] LABORATORY RBC 3.59 (L) 4.58 - [place] 5.54 [facility] x10(6)/[facility] LABORATORY Hemoglobin 10.3 (L) 13.7 - [facility] 16.5 gm/dL [facility] Hematocrit 32.6 (L) 40.5 - [place] 48.5 % [facility] MCV 90.8 82.9 - [facility] 93.1 [facility] LABORATORY MCH 28.7 27.5 - [facility] RYAN 32.1 pg [facility] MCHC 31.6 (L) 32.0 - [place] 35.7 gm/dL [facility] Platelets 322 145 - 357 [facility] x10(3)/[facility] RDWSD 48.7 (H) 36.0 - [facility] RYAN 45.0 [facility] LABORATORY RDWCV 14.7 (H) 11.4 - [facility] RYAN 13.8 % [facility] MPV 8.9 7.6 - 12.9 [facility] LABORATORY nRBC % Auto 0.0 % [facility] LABORATORY nRBC Abs Auto 0.000 0.000 - [facility] RYAN 0.000 [facility] x10(3)/[facility] LABORATORY Specimen Anatomical Collection Method Collection Time Receive d Time (Source) Location / / Volume Laterality Blood specimen 07/27/2017 12:53 8 1:00 (specimen) AM EST AM EST Resulting Agency Comment Spec In Lab Angela Swenson MD HEMATOLOGY ORDERABLES Performing Organization Address City/State/[place] [address] Antibody screen (07/27/2017 12:53 AM EST) Patholo gist Method Time Signature Ab Screen Negative [facility] LABORATORY Expires at 07/30/2017 KATALINA ZHAORYAN 2359 on: [facility] Specimen Anatomical Collection Method Collection Time Receive d Time (Source) Location / / Volume Laterality Blood specimen 07/27/2017 12:53 8 (specimen) AM EST 12:58 AM EST Resulting Agency Comment Spec In Lab Angela Swenson MD BLOOD BANK ORDERABLES Performing Organization Address City/[facility]/[place] [address] ABO/Rh Typing (07/27/2017 12:53 [...] Organization Address City/[facility] [place] [address] (ABNORMAL) Prothrombin Time (07/27/2017 [...] Organization Address City/State/[place] [address] (ABNORMAL) Basic Metabolic Panel (non-fasting) (07/27/2017 12:53 AM EST) athologist Signature Glucose Lvl 95 65 - 199 [facility] mg/dL [facility] Comment: Diabetes: >=200 mg/dL plus symp toms BUN 37 (H) 10 - 20 mg/dL [facility] Creatinine 1.49 0.80 - 1.50 mg/dL [facility] Sodium 137 135 - 145 mmol/L [facility] Potassium 5.1 (H) 3.5 - 5.0 mmol/L [facility] [...] 10.5 mg/dL [facility] Estimated GFR 46 (L) >=60 [facility] Comment: The reported eGFR should be multiplied b y 1.2 for patients. The MDRD is not an appropriate measure o f renal function for patients with body mass extremes or in patients with acute kidney failure. 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 Right foot pain Pain in limb ASHD (arteriosclerotic heart disease) Coronary atherosclerosis of unspecified type of vessel, [place] or graft Cardiomyopathy, ischemic Other specified forms [...] 127.5 mg 0900 (Given - Provider: Zulma Arndt, VAMSI) 127.5 mg (rounded from 127.2 mg = [...] 175 mcg 0609 (Given - Provider: Tamiko Roblero, VAMSI) 175 mcg, Oral, DAILY, First dose on Wed07/27/17 at 0600, Until Discontinued, STAT lisinopril (PRINIVIL;ZESTRIL) tablet 10 mg 1300 (Not Given - Provider: Zulma Arndt RN - Reason: Medication not available) 10 mg, Oral, DAILY, First dose on 09/12 at 1300, Until Discontinued, Routine meTOPROLOL tartrate (LOPRESSOR) tablet 25 mg 1014 (Given - Provider: Zulma Arndt, VAMSI) 25 mg, Oral, 2 TIMES DAILY, [...] 18 at 1726, Pain, for moderate pain (4-6)
May give an additional 2 mg once if pain not relieved in 30-60 minutes.
Routine documented in this encounter Care Teams County Coroner Relationship Specialty Start Date End Date Lovely Vicente MD PCP - General 04/16/15 [facility] [address] [facility] [address] [place] [address] documented as of this encounter
--- OUTSIDE RECORDS SUMMARY | 2022-03-27 09:24 | XMS_ITS | Encounter Summary ---
:1945 Author Organization [facility] [place] [address] Care Team Providers Name Role Phone Lovely Vicente MD Primary Care Provider Reason for Visit Auth/Cert Specialty Diagnoses / Procedures Referred By Contact Refer red To Contact Diagnoses Critical lower limb ischemia CELLULITIS RT FOOT Procedures EMERGENCY Referral ID Status Reason Start Date Expiration Date Visits Requ ested Visits Authorized [id number] 1 1 Encounter Details Date Type Department Care Team Description 08/04/2017 Office Visit Cardiology at [facility] Danette Maxwell Incisional pain; [facility] A, 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 [...] of abdominal wall ??? Urinary retention ??? MARAI VICTORIA (obstructive sleep apnea) on CPAP ??? [...] Dolan MD [facility] [address] [place], [place] [address] (Wo rk) 05/28/2022 Laboratory Appointment Lab 05/28/2022 Office Visit Cardiology Zulma Dolan MD [facility] [place] [address] Liz Poole PA [facility] [place] [address] 06/10/2022 Office Visit Dermatology Laura Scherer MD [facility] DR [address] [place], [place] [address] (Wo rk) documented as of [...] sensation documented in this encounter Care Teams Transportation Aid Relationship Specialty Start Date End Date Lovely Vicente MD PCP - General 04/16/[address] [place] [address] documented as of this encounter
--- OUTSIDE RECORDS SUMMARY | 2022-03-27 09:24 | XMS_ITS | Encounter Summary ---
:1945 [place] [address] Care Team Providers Name Role Phone Lovely Vicente MD Primary Care Provider Encounter Details Date Type Department Care Team Description 07/29/2017 Telephone Pain Aurelia Crawford MD [facility] [place] [address] PAIN CLINIC [phone] [place], [place] [address] (Wo rk) Social History Tobacco [...] Description 05/28/2022 Appointment Cardiology Zulma Dolan MD [facility] [address] [place], [place] [address] (Wo rk) 05/28/2022 Laboratory Appointment Lab 05/28/2022 Office Visit Cardiology Zulma Dolan MD [facility] [place] [address] Liz Poole PA [facility] [place] [address] 06/10/2022 Office Visit Dermatology Laura Scherer MD [facility] [address] [place], [place] [address] (Wo rk) documented as of this encounter Visit Diagnoses Not on filedocumented in this encounter Care Teams Clinical Cytopathologist Relationship Specialty Start Date End Date Lovely Vicente MD PCP - General 04/16/[address] [place] [address] [address] [place] [address] documented as of this encounter
--- OUTSIDE RECORDS SUMMARY | 2022-03-27 09:24 | XMS_ITS | Encounter Summary ---
:1945 Author Organization [facility] [place] [address] Care Team Providers Name Role Phone Lovely Vicente MD Primary Care Provider Encounter Details Date Type Department Care Team Description 08/04/2017 Orders Only Cardiac Surgery Makayla Wilson APRN [facility] [place] [address] CARDIAC SURGERY [phone] [place], [place] [address] (Wo rk) Social History Tobacco [...] Description 05/28/2022 Appointment Cardiology Zulma Dolan MD [facility] [place] [address] [place], [place] [address] (Wo rk) 05/28/2022 Laboratory Appointment Lab 05/28/2022 Office Visit Cardiology Zulma Dolan MD [facility] [place] [address] Liz Poole PA [facility] [place] [address] 06/10/2022 Office Visit Dermatology Laura Scherer MD [facility] ER [address] [place], [place] [address] (Wo rk) documented as of this encounter Visit Diagnoses Not on filedocumented in this encounter Care Teams Urogynecology Physician Relationship Specialty Start Date End Date Lovely Vicente MD PCP - General 04/16/[address] [place] [address] documented as of this encounter
--- OUTSIDE RECORDS SUMMARY | 2022-03-27 09:24 | XMS_ITS | Encounter Summary ---
:1945 [place] [address] Care Team Providers Name Role Phone Lovely Vicente MD Primary Care Provider Encounter Details Date Type Department Care Team Description 07/29/2017 Hospital Encounter Vascular Lab at Critic monica Huber lower limb [facility] [place] [id number] Social History Tobacco Use Types Packs/Day Years [...] Cardiology Zulma Dolan MD [facility] [place], [place] [address] (Wo rk) 05/28/2022 Laboratory Appointment Lab 05/28/2022 Office Visit Cardiology Zulma Dolan MD [facility] [place] [address] Liz Poole PA [facility] [place] [address] 06/10/2022 Office Visit Dermatology Laura Scherer MD [facility] [address] [place], [place] [address] (Wo rk) documented as of this encounter Visit Diagnoses Diagnosis Critical lower limb ischemia Unspecified circulatory system disorder documented in this encounter Care Teams Legal Internship Relationship Specialty Start Date End Date Lovely Vicente MD PCP - General 04/16/[address] [place] [address] documented as of this encounter
--- OUTSIDE RECORDS SUMMARY | 2022-03-27 09:24 | XMS_ITS | Encounter Summary ---
:1945 Author Organization [facility] [place] [address] Care Team Providers Name Role Phone Lovely Vicente MD Primary Care Provider Encounter Details Date Type Department Care Team Description 07/29/2017 Transcribe Orders Laboratory Lovely Vicente MD [address] [address] [place] [address] [phone] (Wo rk) Social History Tobacco Use Types [...] MD [facility] er [address] [place] [address] (Wo rk) 05/28/2022 Laboratory Appointment Lab 05/28/2022 Office Visit Cardiology Zulma Dolan MD [facility] [place] [address] Liz Poole PA [facility] [place] [address] 06/10/2022 Office Visit Dermatology Laura Scherer MD [facility] ER DR [address] [place], [place] [address] (Wo rk) documented as of this encounter Visit Diagnoses Not on filedocumented in this encounter Care Teams Web Merchant Relationship Specialty Start Date End Date Loevly Vicente MD PCP - General 04/16/[address] [place] [address] documented as of this encounter
--- OUTSIDE RECORDS SUMMARY | 2022-03-27 09:24 | XMS_ITS | Encounter Summary ---
:1945 Author Organization [facility] [place] [address] Care Team Providers Name Role Phone Lovely Vicente MD Primary Care Provider Reason for Visit Reason Comments Pain Management Ankle Pain Toe Pain Encounter Details Date Type Department Care Team Description 07/30/2017 Office Visit Pain Management at Barbra Soares, Per ipheral neuropathy [place]rowers BLEACH SUPERVISOR due to ischemia [facility] [address], [place], [place] [phone] Social History Tobacco Use Types Packs/Day Years [...] Soares APRN - 07/30/2017 1:45 PM EST [facility] [place] [address] Phone: PAIN MANAGEMENT NEW PATIENT / CONSULTATION NOTE DATE OF VISIT 07/30/2017 Patient Don Fatima 1945 REFERRING PROVIDER Lovely Vicente MD [address] [place] [address] PRIMARY CARE PROVIDER Lovely Vicente MD CHIEF [...] PAST THERAPIES: Nothing MEDICATIONS The [place] Prescription Monitoring Program was checked and no [...] 33.75) performed by Yuan Retana MD at [facility] OR ??? PRO CABG, ARTERY-VEIN, TWO N/A 07/07/2017 @CABG, TWO VENOUS GRAFTS & ARTERIAL GRAFT (WRVU 7.93) performed by Yuan Retana MD at [facility] OR ??? PRO COLONOSCOPY, REMV LESN, SNARE 01/16/2014 COLONOSCOPY, POLYPECTOMY, REMOVAL LESION BY SNARE performed by Nohemi Jaimes MD at [facility] ENDOSCOPY ??? PRO ENDOSCOPY W/VIDEO-ASST VEIN HARVEST, CABG Right 07/07/2017 ENDOSCOPIC HARVEST VEIN(S) FOR CABG (WRVU 0.31) performed by Yuan Retana MD at [facility] OR [...] referral, Lovely Vicente MD [address] [place] [address]. Barbra Soares, MSN, SPEECH ASSISTANT-BC, BLEACH SUPERVISOR Nurse Practitioner Pain Management Center documented in this encounter Plan of Treatment Upcoming Encounters Date Type Specialty Care Team Description 05/28/2022 Appointment Cardiology Zulma Dolan MD [facility] [place], [place] [address] (Wo rk) 05/28/2022 Laboratory Appointment Lab 05/28/2022 Office Visit Cardiology Zulma Dolan MD [facility] [place] [address] Liz Poole PA [facility] [place] [address] 06/10/2022 Office Visit Dermatology Laura Scherer MD [facility] [address] [place], [place] [address] (Wo rk) documented as of this encounter Visit Diagnoses Diagnosis 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
--- OUTSIDE RECORDS SUMMARY | 2022-03-27 09:24 | XMS_ITS | Encounter Summary ---
:1945 Author Organization [facility] Address [facility] [place] [address] Care Team Providers Name Role Phone Lovely Vicente MD Primary Care Provider Reason for Visit Auth/Cert Specialty Diagnoses / Procedures Referred By Contact Refer red To Contact Diagnoses Critical lower limb ischemia CELLULITIS RT FOOT Procedures EMERGENCY Referral ID Status Reason Start Date Expiration Date Visits Requ ested Visits Authorized [id number] 1 1 Encounter Details Date Type Department Care Team Description 08/04/2017 Laboratory Lab 3L [place] Cardiomyopathy, unspecified type; Appointment [facility] Systolic congestive heart failure, unspecified congestive heart failure chronicity; Hospital Coronary artery rupture; [facility] Ischemic cardiomyopathy; Drive Atherosclerosis of [place] co ronary artery, angina presence unspecified, unspecified whether [place] or transplanted heart; [place], [place] Essential hyper tension, malignant; [phone] 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 [address] [place] [address] (Wo rk) 05/28/2022 Laboratory Appointment Lab 05/28/2022 Office Visit Cardiology Zulma Dolan MD [facility] [place] [address] Liz Poole PA [facility] [place] [address] 06/10/2022 Office Visit Dermatology Laura Scherer MD [facility] ER [address] [place], [place] [address] (Wo rk) documented as of this encounter Procedures Procedure Name Priority Date/Time Associated Diagnosis Comme nts HEMOGRAM Routine 08/04/2017 12:55 Essential Results for this PM EST hypertension, procedure are in malignant the results section. PROTHROMBIN TIME Routine 08/04/2017 12:55 Coronary artery Resu lts for this PM EST rupture procedure are in Ischemic the results cardiomyopathy section. Atherosclerosis of [place] coronary artery, angina presence unspecified, unspecified whether [place] or transplanted heart URIC ACID Routine 08/04/2017 [...] Signature Uric Acid 7.1 3.5 - 8.5 [facility] mg/dL [facility] Specimen Anatomical Collection Method Collection Time Receive d Time (Source) Location / / Volume Laterality Blood specimen 08/04/2017 12:55 8 1:01 (specimen) PM EST PM EST Resulting Agency Comment Spec In Lab Lovely Vicente MD CHEMISTRY ORDERABLES Performing Organization Address City/[facility]/[place] [address] (ABNORMAL) Hemogram (08/04/2017 12:55 PM EST) Analysis Performed At Patho logist Time Signature WBC 15.8 (H) 4.0 - 9.5 [facility] x10(3)/[facility] LABORATORY RBC 3.48 (L) 4.58 - [facility] RYAN 5.54 [facility] x10(6)/[facility] LABORATORY Hemoglobin 9.9 (L) 13.7 - [facility] 16.5 gm/dL [facility] Hematocrit 31.4 (L) 40.5 - [facility] 48.5 % [facility] MCV 90.2 82.9 - [facility] 93.1 [facility] LABORATORY MCH 28.4 27.5 - [facility] 32.1 pg [facility] MCHC 31.5 (L) 32.0 - [facility] 35.7 gm/dL [facility] Platelets 310 145 - 357 [facility] x10(3)/[facility] LABORATORY RDWSD 51.8 (H) 36.0 - [facility] 45.0 [facility] LABORATORY RDWCV 15.8 (H) 11.4 - [facility] RYAN 13.8 % [facility] MPV 8.9 7.6 - 12.9 [facility] LABORATORY nRBC % Auto 0.0 % [facility]ATORY nRBC Abs Auto 0.000 0.000 - [facility] 0.000 [facility] x10(3)/[facility] LABORATORY Specimen Anatomical Collection Method Collection Time Receive d Time (Source) Location / / Volume Laterality Blood specimen 08/04/2017 12:55 8 1:01 (specimen) PM EST PM EST Resulting Agency Comment Spec In Lab Lovely Vicente MD HEMATOLOGY ORDERABLES Performing Organization Address City/State/[place] [address] (ABNORMAL) Comprehensive metabolic panel (non-fasting) (08/04/2017 12:55 PM EST) athologist Signature Glucose Lvl 208 (H) 65 - 199 [facility] mg/dL [facility] Comment: Diabetes: [...] Total Bilirubin 0.4 0.2 - 1.3 mg/dL [facility] Estimated GFR 43 (L) >=60 [facility] Comment: The reported eGFR should be multiplied b y 1.2 for patients. The MDRD is not an appropriate measure o f renal function for patients with body mass extremes or in patients with acute kidney failure. http://TriCipher/DHnkdep http://TriCipher/DHMCnkf Specimen Anatomical Collection Method Collection Time Receive d Time (Source) Location / / Volume Laterality Blood specimen 08/04/2017 12:55 8 1:01 (specimen) PM EST PM EST Resulting Agency Comment Spec In Lab Lovely Vicente MD CHEMISTRY ORDERABLES Performing Organization Address City/State/ZIP Code Phon e Number [place] [id number] HOSP[address] LAB[address]ORY [address] (ABNORMAL) Hemoglobin A1c (08/04/2017 [...] with hemoglobinopathies. Additional resources are available on [facility] website. Macario HAMMOND, Ruthann J, Deysi R, et al. ??Tr anslating the A1C assay into estimated average glucose values. ??Diabetes Care 2008:31(8):2246-0344. Specimen Anatomical Collection Method Collection Time Receive d Time (Source) Location / / Volume Laterality Blood specimen 08/04/2017 12:55 8 1:01 (specimen) PM EST PM EST Resulting Agency Comment Spec In Lab Lovely Vicente MD CHEMISTRY ORDERABLES Performing Organization Address [facility] [place] [address] (ABNORMAL) Prothrombin Time (08/04/2017 [...] Vicente MD HEMATOLOGY ORDERABLES Performing Organization Address [facility] [place] [address] (ABNORMAL) pro-Brain Natriuretic Peptide (08/04/2017 12:55 PM EST) P athologist Signature ProBNP 3,133 (H) <=125 [facility] pg/mL [facility] Specimen Anatomical Collection Method Collection Time Receive d Time (Source) Location / / Volume Laterality Blood specimen 08/04/2017 12:55 8 1:01 (specimen) PM EST PM EST Resulting Agency Comment Spec In Lab Danette Maxwell APRN CHEMISTRY ORDERABLES Performing Organization Address City/State/[place] [address] documented in this encounter Visit Diagnoses Diagnosis Cardiomyopathy, unspecified type Systolic congestive heart failure, unspe cified congestive heart failure chronicity Coronary artery rupture Acute myocardial infarction, unspecified site, episode of care unspecified Ischemic cardiomyopathy Other specified forms of chronic ischemi c heart disease Atherosclerosis of [place] coronary arter y, angina presence unspecified, unspecified whether [place] or transplanted heart Essential hypertension, malignant Diabetes mellitus due to underlying cond ition with diabetic nephropathy, unspecified termite technician insulin use status documented in this encounter Care Teams Counseling Director Relationship Specialty Start Date End Date Lovely Vicente MD PCP - General 04/16/[address] [place] [address] documented as of this encounter
--- OUTSIDE RECORDS SUMMARY | 2022-03-27 09:24 | XMS_ITS | Encounter Summary ---
:1945 Author Organization [facility] [place] [address] Care Team Providers Name Role Phone Lovely Vicente MD Primary Care Provider Encounter Details Date Type Department Care Team Description 08/03/2017 Telephone Pain Management at Angeles [place], [place] [address] Social History Tobacco Use Types Packs/Day [...] Management Center Preauthorization Request Patient: Don Fatima [id number] Fax received from [facility] requesting we obtain prior authorization for Lidocaine Patches prescribed by Barbra Soares APRN. RX insurance plan: [facility] insurance telephone: [phone] Patient ?? Diagnosis: right foot pain secondary to PVD and ischemia ?? Previous medications attempted: Tylenol, Tramadol, Dilaudid Authorization/Reference number: [id number], PBP Code 801 _x_ denied, provider and patient informed _x_ appeal initiated by provider, patient informed [place] Rodrigez, RN documented in this encounter Plan of Treatment Upcoming Encounters Date Type Specialty Care Team Description 05/28/2022 Appointment Cardiology Zulma Dolan MD [facility] [place], [place] [address] (Wo rk) 05/28/2022 Laboratory Appointment Lab 05/28/2022 Office Visit Cardiology Zulma Dolan MD [facility] [place] [address] Liz Poole PA [facility] [place] [address] 06/10/2022 Office Visit Dermatology Laura Scherer MD [facility] [address] [place], [place] [address] (Wo rk) documented as of this encounter Visit Diagnoses Not on filedocumented in this encounter Care Teams Brusher Relationship Specialty Start Date End Date Lovely Vicente MD PCP - General 04/16/[address] [place] [address] documented as of this encounter
--- OUTSIDE RECORDS SUMMARY | 2022-03-27 09:24 | XMS_ITS | Encounter Summary ---
:1945 Author Organization [facility] [place] [address] Care Team Providers Name Role Phone Lovely Vicente MD Primary Care Provider Reason for Visit Reason Comments Deep Vein Thrombosis Auth/Cert Specialty Diagnoses / Procedures Referred By Contact Refer red To Contact Diagnoses Critical lower limb ischemia CELLULITIS RT FOOT Procedures EMERGENCY Referral ID Status Reason Start Date Expiration Date Visits Requ ested Visits Authorized [id number] 1 1 Encounter Details Date Type Department Care Team Description 08/04/2017 Office Visit Vascular Surgery at [facility] itical lower limb [facility] ischemia [facility] [address] [place] VASCULAR SURGERY [id number] [place] [address] [phone] Social History Tobacco Use Types Packs/Day Years [...] Zulma Dolan MD [facility] [place] [address] (Wo rk) 05/28/2022 Laboratory Appointment Lab 05/28/2022 Office Visit Cardiology Zulma Dolan MD [facility] [place] [address] Liz Poole PA [facility] [place] [address] 06/10/2022 Office Visit Dermatology Laura Scherer MD [facility] ER [address] [place], [place] [address] (Wo rk) documented as of this encounter Visit Diagnoses Diagnosis Critical lower limb ischemia Unspecified circulatory system disorder documented in this encounter Care Teams Kiln Car Unloader Relationship Specialty Start Date End Date Lovely Vicente MD PCP - General 04/16/15 [facility] [address] [place], [place] [address] documented as of this encounter
--- OUTSIDE RECORDS SUMMARY | 2022-03-27 09:24 | XMS_ITS | Encounter Summary ---
:1945 Author Organization [facility] [place] [address] Care Team Providers Name Role Phone Lovely Vicente MD Primary Care Provider Encounter Details Date Type Department Care Team Description 07/29/2017 Transcribe Orders Laboratory Lovely Vicente MD [address] [address] [place] [address] [phone] (Wo rk) Social History Tobacco Use Types [...] Dolan MD [facility] er Dr [place] [address] (Wo rk) 05/28/2022 Laboratory Appointment Lab 05/28/2022 Office Visit Cardiology Zulma Dolan MD [facility] [place] [address] Liz Poole PA [facility] [place] [address] 06/10/2022 Office Visit Dermatology Laura Scherer MD [facility] ER [address] [place], [place] [address] (Wo rk) documented as of this encounter Visit Diagnoses Not on filedocumented in this encounter Care Teams Air Traffic Control Manager Relationship Specialty Start Date End Date Lovely Vicente MD PCP - General 04/16/[address] [place] [address] documented as of this encounter
--- OUTSIDE RECORDS SUMMARY | 2022-03-27 09:24 | XMS_ITS | Encounter Summary ---
:1945 Author Organization [place] [address] Care Team Providers Name Role Phone Lovely Vicente MD Primary Care Provider Reason for Visit Auth/Cert Specialty Diagnoses / Procedures Referred By Contact Refer red To Contact Diagnoses Critical lower limb ischemia CELLULITIS RT FOOT Procedures EMERGENCY Referral ID Status Reason Start Date Expiration Date Visits Requ ested Visits Authorized [id number] 1 1 Encounter Details Date Type Department Care Team Description 08/04/2017 Laboratory Appointment Lab 3L [facility] [place] [address] Social History Tobacco Use Types Packs/Day [...] Zulma Dolan MD [facility] er [address] [place] [address] (Wo rk) 05/28/2022 Laboratory Appointment Lab 05/28/2022 Office Visit Cardiology Zulma Dolan MD [facility] [place] [address] [facility] [place] [address] 06/10/2022 Office Visit Dermatology Laura Scherer MD [facility] [address] [place], [place] [address] (Wo rk) documented as of this encounter Visit Diagnoses Not on filedocumented in this encounter Care Teams Business Office Technology Instructor Relationship Specialty Start Date End Date Lovely Vicente MD PCP - General 04/16/15 [facility] [address] [place], [place] [address] documented as of this encounter
--- OUTSIDE RECORDS SUMMARY | 2022-03-27 09:24 | XMS_ITS | Encounter Summary ---
:1945 [place] [address] Care Team Providers Name Role Phone Lovely Vicente MD Primary Care Provider Reason for Visit Reason Onset Date Comments Questions 07/16/2017 fluid retention Encounter Details Date Type Department Care Team Description 07/16/2017 Telephone Cardiology at [facility] Martha Comer, Questions ([facility] RN retention ) [place] [address] Social History Tobacco Use Types Packs/Day [...] the direct number to the HF team ([phone]). She is aware of his appt with DEVELOPER ADVOCATE Hans on 07/21/17 and the need for labs prior to that visit. verbalized good understanding of the current POC. documented in this encounter Plan of Treatment Upcoming Encounters Date Type Specialty Care Team Description 05/28/2022 Appointment Cardiology Zulma Dolan MD [facility] [address] [place], [place] [address] (Wo rk) 05/28/2022 Laboratory Appointment Lab 05/28/2022 Office Visit Cardiology Zulma Dolan MD [facility] [place] [address] Liz Poole PA [facility] [place] [address] 06/10/2022 Office Visit Dermatology Laura Scherer MD [facility] [address] [place], [place] [address] (Wo rk) documented as of this encounter Visit Diagnoses Not on filedocumented in this encounter Care Teams Utility Assembler Relationship Specialty Start Date End Date Lovely Vicetne MD PCP - General 04/16/[address] [place] [address] documented as of this encounter
--- OUTSIDE RECORDS SUMMARY | 2022-03-27 09:24 | XMS_ITS | Encounter Summary ---
:1945 Author Organization [facility] [place] [address] Care Team Providers Name Role Phone Lovely Vicente MD Primary Care Provider Reason for Visit Auth/Cert Specialty Diagnoses / Procedures Referred By Contact Refer red To Contact Diagnoses Critical lower limb ischemia CELLULITIS RT FOOT Procedures EMERGENCY Referral ID Status Reason Start Date Expiration Date Visits Requ ested Visits Authorized [id number] 1 1 Encounter Details Date Type Department Care Team Description 08/04/2017 Hospital Encounter XRay at [facility] Danette Maxwell Incisional pain [address] [place] [address] Dr Gomes, AREA CLEANER [facility] [address] CARDIOLOGY [place], [place] [address] Social History Tobacco Use [...] Description 05/28/2022 Appointment Cardiology Zulma Dolan MD [facility] [place], [place] [address] (Wo rk) 05/28/2022 Laboratory Appointment Lab 05/28/2022 Office Visit Cardiology Zulma Dolan MD [facility] [place] [address] Liz Poole PA [facility] [place] [address] 06/10/2022 Office Visit Dermatology Laura Scherer MD [facility] [address] [place], [place] [address] (Wo rk) documented as of [...] original. EXAMINATION: XR CHEST PA AND LATERAL ([employer]) CLINICAL HISTORY: Checking sternal stabi lity/assess wires [...] Daniele gutiérrez 08/04/2017 4:13 PM Danette Maxwell AREA CLEANER IMG DX ORDERABLES documented in this encounter Visit Diagnoses Diagnosis Incisional pain Disturbance of skin sensation documented in this encounter Care Teams Prune Washer Relationship Specialty Start Date End Date Lovely Vicente MD PCP - General 04/16/[address] [place] [address] documented as of this encounter
--- OUTSIDE RECORDS SUMMARY | 2022-03-27 09:24 | XMS_ITS | Encounter Summary ---
:1945 Author Organization [facility] [place] [address] Care Team Providers Name Role Phone Lovely Vicente MD Primary Care Provider Reason for Visit Reason Comments Follow-up Encounter Details Date Type Department Care Team Description 07/29/2017 Office Visit Cardiac Surgery at [facility] Yuan Retana MD S/P CABG x [address] [facility] [place] [address] CARDIOTHORACIC SURGERY [phone] [place], [place] [address] (Wo rk) Social History Tobacco [...] evaluation by vascular surgery. Yuan Retana MD [phone] documented in this encounter Plan of Treatment Upcoming Encounters Date Type Specialty Care Team Description 05/28/2022 Appointment Cardiology Zulma Dolan MD [facility] er [address] [place] [address] (Wo rk) 05/28/2022 Laboratory Appointment Lab 05/28/2022 Office Visit Cardiology Zulma Dolan MD [facility] [place] [address] Liz Poole PA [facility] [place] [address] 06/10/2022 Office Visit Dermatology Laura Scherer MD [facility] ER [address] [place], [place] [address] (Wo rk) documented as of this encounter Visit Diagnoses Diagnosis S/P CABG x 3 Postsurgical aortocoronary bypass status documented in this encounter Care Teams Adult Protective Caseworker Relationship Specialty Start Date End Date Lovely Vicente MD PCP - General 04/16/[address] [place] [address] documented as of this encounter
--- OUTSIDE RECORDS SUMMARY | 2022-03-27 09:24 | XMS_ITS | Encounter Summary ---
:1945 Author Organization [facility] [address] Care Team Providers Name Role Phone Lovely Vicente MD Primary Care Provider Encounter Details Date Type Department Care Team Description 08/02/2017 Telephone Pain Management at [facility] [place], [place] [address] Social History Tobacco Use Types Packs/Day [...] Management Center Preauthorization Request Patient: Don Fatima [id number] Fax received from [facility] requesting we obtain prior authorization for Lidocaine patches prescribed by Barbra Soares APRN. RX insurance plan: [employer] RX insurance telephone: [phone] Patient Diagnosis: right foot pain secondary to PVD and ischemia Previous medications attempted: Tylenol, Tramadol, Dilaudid The following action was taken after discussion with the answering service telephone operator: _x_ pharmacy informed Authorized dosage or amount: 5% on patch on for 12 hours, then remove for 12 hours. Angeles Rodrigez, RN documented in this encounter Plan of Treatment Upcoming Encounters Date Type Specialty Care Team Description 05/28/2022 Appointment Cardiology Zulma Dolan MD [facility] [place], [place] [address] (Wo rk) 05/28/2022 Laboratory Appointment Lab 05/28/2022 Office Visit Cardiology Zulma Doaln MD [facility] [place] [address] Liz Poole PA [facility] [place] [address] 06/10/2022 Office Visit Dermatology Laura Scherer MD [facility] [address] [place], [place] [address] (Wo rk) documented as of this encounter Visit Diagnoses Not on filedocumented in this encounter Care Teams Golf Shoe Spike Assembler Relationship Specialty Start Date End Date Lovely Vicente MD PCP - General 04/16/[address] [place] [address] documented as of this encounter
--- OUTSIDE RECORDS SUMMARY | 2022-03-27 09:24 | XMS_ITS | Encounter Summary ---
:1945 [place] [address] Care Team Providers Name Role Phone Lovely Vicente MD Primary Care Provider Encounter Details Date Type Department Care Team Description 08/03/2017 Hospital Encounter Radiology Library at [place], Tommy Mijares [facility] [place] [address] VASCULAR SURGERY [phone] [place], [place] [address] (Wo rk) Social History Tobacco [...] Dolan MD [facility] [address] [place], [place] [address] (Wo rk) 05/28/2022 Laboratory Appointment Lab 05/28/2022 Office Visit Cardiology Zulma Dolan MD [facility] [place] [address] Liz Poole PA [facility] [place] [address] 06/10/2022 Office Visit Dermatology Laura Scherer MD [facility] [address]MAT OLOGY [place], [place] 0[address] (Wo rk) documented as [...] Time / Laterality Volume Narrative [facility] - 08/03/2017 6:03 PM EST This exam is for storage only and is aut o-finalizing. Arik Clement MD G FILM LIBRARY ORDERABLES Performing Organization Address City/State/ZIP Code Phon e Number [place], [place] documented in this encounter Visit Diagnoses Diagnosis Pain Generalized pain documented in this encounter Care Teams Pit Hoist Operator Relationship Specialty Start Date End Date Lovely Vicente MD PCP - General 04/16/[address] [place] [address] documented as of this encounter
--- OUTSIDE RECORDS SUMMARY | 2022-03-27 09:24 | XMS_ITS | Encounter Summary ---
:1945 [place] [address] Care Team Providers Name Role Phone Lovely Vicente MD Primary Care Provider Encounter Details Date Type Department Care Team Description 08/03/2017 Hospital Encounter Radiology Library at [place], Tommy Mijares [facility] [place] [address] VASCULAR SURGERY [phone] [place], [place] [address] (Wo rk) Social History Tobacco [...] Zulma Dolan MD [facility] [address] [place], [place] [address] (Wo rk) 05/28/2022 Laboratory Appointment Lab 05/28/2022 Office Visit Cardiology Zulma Dolan MD [facility] [place] [address] Liz Poole PA [facility] [place] [address] 06/10/2022 Office Visit Dermatology Laura Scherer MD [facility] [address] OLOGY [place], [place] [address] (Wo rk) documented as of [...] / Laterality Volume Narrative [facility] - 08/03/2017 6:01 PM EST This exam is for storage only and is aut o-finalizing. Arik Clement MD G FILM LIBRARY ORDERABLES Performing Organization Address City/State/ZIP Code Phon e Number [place], [place] documented in this encounter Visit Diagnoses Diagnosis Pain Generalized pain documented in this encounter Care Teams Child Nutrition Assistant Relationship Specialty Start Date End Date Lovely Vicente MD PCP - General 04/16/[address] [place] [address] documented as of this encounter
--- OUTSIDE RECORDS SUMMARY | 2022-03-27 09:24 | XMS_ITS | Encounter Summary ---
:1945 Author Organization [facility] [place] [address] Care Team Providers Name Role Phone Lovely Vicente MD Primary Care Provider Encounter Details Date Type Department Care Team Description 07/24/2017 Telephone Vascular Surgery Melba Bob [facility] [place] [address] [facility] [phone] VASCULAR SURGERY [place], [place] [address] (Wo rk) Social History Tobacco [...] Description 05/28/2022 Appointment Cardiology Zulma Dolan MD [facility] [address] [place] [address] (Wo rk) 05/28/2022 Laboratory Appointment Lab 05/28/2022 Office Visit Cardiology Zulma Dolan MD [facility] [place] [address] Liz Poole PA [facility] [place] [address] 06/10/2022 Office Visit Dermatology Laura Scherer MD [facility] DR [address] [place], [place] [address] (Wo rk) documented as of this encounter Visit Diagnoses Not on filedocumented in this encounter Care Teams Nurse Technician Relationship Specialty Start Date End Date Lovely Vicetne MD PCP - General 04/16/[address] [place] [address] documented as of this encounter
--- OUTSIDE RECORDS SUMMARY | 2022-03-27 09:24 | XMS_ITS | Encounter Summary ---
:1945 [place] [address] Care Team Providers Name Role Phone Lovely Vicente MD Primary Care Provider Reason for Visit Reason Comments Hospital Transfer cold foot post CABG Auth/Cert Specialty Diagnoses / Procedures Referred By Contact Refer red To Contact Diagnoses Critical lower limb ischemia Procedures NAYE IPI Referral ID Status Reason Start Date Expiration Date Visits Requ ested Visits Authorized [id number] 1 1 Encounter Details Date Type Department Care Team Description 07/20/2017 Hospital Encounter 4 Herminia Ibarra MD [facility] [address] Critical lower limb [facility] Arik Clement MD [facility] [address] [place] [address] Social History Tobacco Use Types Packs/Day Years [...] home. Important Studies and Lab Data: Labs: [facility] Lab Results Component Value Date INR 1.5 [...] For any problems or questions please call [phone] ZELDA Smith, fish smoker Nurse Clinician For issues on weeknights after 5pm and weekends please call [phone] and ask for the Vascular Fellow reception manager. General Instructions None Future Appointments and Orders Future Appointments Provider Department Dept Phone 08/04/2017 1:00 PM Daniele Mooney [place] [facility] at [place] [phone] 08/04/2017 2:15 PM Arik Clement MD Vascular Surgery at [place] [phone] 09/07/2017 3:00 PM MAYRA CHACON Lab [facility] [phone] 09/07/2017 4:00 PM Luz Prescott MD Endocrinology at [place] [phone] Future Orders Complete By Expires Arterial Duplex Leg, Unil [VAS32 Custom] 07/27/2017 (Approximate) 01/26/2018 Process Instructions: There is no in-house vascular coreroom foundry laborer available on weeknights (5pm-8am), weekends, or holidays. IF THIS IS A REQUEST FOR AN EMERGENT STUDY DURING THOSE HOURS, please have the senior provider responsible for the patient page the Vascular Surgery Fellow/Senior Resident reception manager to discuss options. Scheduling Instructions: Questions: Indication for study/signs & symptoms: Right femoral PSA s/p cardiac cath Question to be answered: bloodflow to PSA Laterality: Right Is there a RIGHT LOWER EXTREMITY graft?: No Lower limb right segments: Common Femoral Is there a stent?: No At which location will this be performed?: [place] Referral to Home Health - at DISCHARGE [RCK4557 CPT(R)] As directed Process Instructions: Scheduling Instructions: Comments: DOCUMENTATION FOR VNA SERVICES (INCLUDING THOSE PATIENTS WITH MEDICARE COVERAGE REQUIRING HOME VNA SERVICES AND/OR HOSPICE SERVICES) PATIENT'S LOCATION: Gregory Fatima [address] [place] [address] [place] [id number] (home) Cell: Telephone Information: Label Designer's Name: self In discussion with the attending physician, it is certified that this patient is under their care and that they, or a Nurse Practitioner,Clinical Nurse specialist or Physician Mental Hygienist who is working directly with them, had [...] CARE AGENCY: [facility] ([facility] [place] [facility]-is in [place] PHONE: [phone] FAX: [phone] Start of care: 24- 48 hours FOR [...] patient'sPCP: Lovely Vicente MD [address] [facility] [place] / [place] [address] All VNA agencies which cover the area [...] For any problems or questions please call [phone] ZELDA Smiht, fish smoker Nurse Clinician For issues on weeknights after 5pm and weekends please call [phone] and ask for the Vascular Fellow reception manager. documented in this encounter Medications at [...] RN - 07/20/2017 2:53 PM EST The patient/title insurance sales representative has been provided a list of Home Health Agencies/DME vendors which serve their preferred geographic area. A letter describing our affiliations was reviewed with them and theywere educated about their right to choose where referrals are placed. Patient requests referral to [facility] [employer] PHONE: [phone] FAX: [phone]. Expected date of discharge: 07/20/2017 . Referral routed to the Liquor Merchant for matching with agency/vendor and to provide any required information. Naty Pullima RN - 07/20/2017 11:37 AM EST The patient/title insurance sales representative has been provided a list of Home Health Agencies/DME vendors which serve their preferred geographic area. A letter describing our affiliations was reviewed with them and theywere educated about their right to choose where referrals are placed. Patient requests referral to [facility] ([facility] [place] [facility]- is in [facility] PHONE: [phone] FAX: [phone]. Expected date of discharge: 07/20/2017 . Referral routed to the Liquor Merchant for matching with agency/vendor and to provide any required information. Katina Pulliam RNoperator vacuum Janneth Lee MD - 07/20/2017 7:29 AM [...] [facility] MAIN OR Functional Status/Social Hx: Social History [...] -ISS -pain control Discussed with Vascular Fellow reception manager. Chris Valadez MD PGY2 Pager [phone] documented in this encounter ED Notes Annita [...] Health/Prescription Coverage: Primary Insurance: MEDICARE Secondary Insurance: [employer] [facility] Prescription Coverage: See above Preferred Pharmacy: [facility] Other: N/A Primary Care Provider: Lovely Vicente MD [phone] Patient/Caregiver Goals of Treatment: Patient plans to return home when medically ready Potential Needs for Transition of Care: Rehab/SNF: N/A Home Health: [facility] ([facility] [place] [facility]-is in [place]) PHONE: [phone] FAX: [phone] DME: N/A Dialysis: N/A Community Resources: N/A Transportation: Patient family will transport Other: N/A Anticipated Barriers to Discharge/Special Considerations: None Plan: Patient plans to return home with home health services when medically ready A member of the Care Management team will continue to monitor progress, follow for continuity of care and assist with transition of care planning. Naty Pulliam, RN Pager: [phone] ED Triage - Rayna Weir RN - 07/20/2017 12:28 AM EST Pt transferred from [place] for blue right foot and painful toes. [...] Description 05/28/2022 Appointment Cardiology Zulma Dolan MD [facility] [address] [place], [place] [address] (Wo rk) 05/28/2022 Laboratory Appointment Lab 05/28/2022 Office Visit Cardiology Zulma Dolan MD [facility] [place] [address] Liz Poole PA [facility] [place] [address] 06/10/2022 Office Visit Dermatology Laura Scherer MD [facility] [address] [place], [place] [address] (Wo rk) documented as of this encounter Procedures Procedure Name Priority Date/Time Associated Comments Diagnosis JAVA CONSULTANT SCAN 09/02/2017 12:00 Res ults for [...] procedure are i n ([facility] the results section. APTT STAT 07/20/2017 2:25 AM Results f or this EST procedure are i n the results section. PROTHROMBIN TIME STAT 07/20/2017 2:25 AM Resul ts for this EST procedure are i n the results section. BASIC METABOLIC PANEL STAT 07/20/2017 2:25 AM Results for this (NON-FASTING) EST procedure are in the results section. documented in this encounter Results SCAN DOC: JAVA CONSULTANT (09/02/2017 12:00 AM EST) Narrative 09/02/2017 12:00 AM EST This result has an attachment that is no t available. Ordered by an unspecified provider. Scanning Provider MEDIA MGR SCAN EXT ORDR/RSLT POCT Glucose (07/20/2017 12:04 PM EST) P athologist Signature POC Glucose 189 65 - 199 [facility] mg/dL [facility] Comment: Supplemental ranges: <140 mg/dL before meals <180 mg/dL all other times of the day Specimen Anatomical Collection Method Collection Time Receive d Time (Source) Location / / Volume Laterality Blood specimen 07/20/2017 12:04 7 (specimen) PM EST 12:04 PM EST Arik Clement MD POINT OF CARE TEST ORDERABLE S Performing Organization Address City/State/[place] [address] (ABNORMAL) Differential, Automated (07/20/2017 10:34 AM EST) Patholo gist Method Time Signature Neutrophils % 84.3 % [facility] Neutr Abs (ANC) 14.27 (H) 1.70 - [facility] 6.[address] [facility] x10(3)/[facility] LABORATORY Lymphocytes % 5.6 % [facility] Lymphocytes Abs 1.0 0.9 - 3.2 [facility] x10(3)/[facility] LABORATORY Monocytes % 6.1 % [facility] Monocyte Abs 1.0 (H) 0.3 - 0.9 [facility] x10(3)/[facility] LABORATORY Eosinophils % 2.4 % [facility] Eosinophils Abs 0.4 0.0 - 0.4 [facility] x10(3)/[facility] LABORATORY Basophils % 0.5 % [facility] Basophils Abs 0.1 0.0 - 0.1 [facility] x10(3)/[facility] LABORATORY Immature Gran % 1.10 % [facility] Comment: Immature granulocytes(IG's)percentage an d absolute count will include metamyelocytes, myelocytes, and promyelo cytes. Blood smears from CBCs yielding IG's will be scanned manually for concor dance. If this scan disagrees with the automated IG or if promyelocytes are not ed, a manual differential will be performed. Melisa Gran Abs 0.19 (H) 0.00 - 0.04 x10(3)/[facility] LABORATORY Specimen Anatomical Collection Method Collection Time Receive d Time (Source) Location / / Volume Laterality Blood specimen 07/20/2017 10:34 7 (specimen) AM EST 10:39 AM EST Resulting Agency Comment Spec In Lab Arik Clement MD HEMATOLOGY ORDERABLES Performing Organization Address City/State/[place] [address] (ABNORMAL) Hemogram (07/20/2017 10:34 AM EST) Analysis Performed At Patho logist Time Signature WBC 17.0 (H) 4.0 - 9.5 [facility] x[facility](3[facility] LABORATORY RBC 3.70 (L) 4.58 - [facility] 5.[address] [facility] x10(6)/[facility] LABORATORY Hemoglobin 10.8 (L) 13.7 - [facility] 16.5 gm/dL [facility] Hematocrit 33.4 (L) 40.5 - [facility] 48.5 % [facility] MCV 90.3 82.9 - [facility] 93.1 [facility] LABORATORY MCH 29.2 27.5 - [facility] RYAN 32.1 pg [facility] MCHC 32.3 32.0 - [facility] RYAN 35.7 gm/dL [facility] Platelets 211 145 - 357 [facility] x10(3)/[facility] LABORATORY RDWSD 49.1 (H) 36.0 - [facility] RYAN 45.0 [facility] LABORATORY RDWCV 14.7 (H) 11.4 - [facility] RYAN 13.8 % [facility] MPV 9.2 7.6 - 12.9 [facility] nRBC % Auto 0.0 % [facility] nRBC Abs Auto 0.000 0.000 - [place] RYAN 0.[address] [facility] x10(3)/[facility] LABORATORY Specimen Anatomical Collection Method Collection Time Receive d Time (Source) Location / / Volume Laterality Blood specimen 07/20/2017 10:34 7 (specimen) AM EST 10:39 AM EST Resulting Agency Comment Spec In Lab Arik Clement MD HEMATOLOGY ORDERABLES Performing Organization Address City/State/[place] [address] (ABNORMAL) APTT (07/20/2017 10:34 AM EST) athologist Signature PTT 79 (H) 25 - 35 sec [facility] [...] [facility]/[place] [address] POCT Glucose (07/20/2017 7:41 AM EST) athologist Signature POC Glucose 174 65 - 199 [facility] mg/dL [facility] Comment: Supplemental ranges: <140 [...] [facility]/ZIP Code Phon e Number [address] JULIAN, legs, multiple levels (07/20/2017 7:33 AM EST) Component Value Ref Test Analysis Performed At Patholo gist Range Method Time Signature VB Text Department: Vascular Surgery Lab VASCUBASE Report Patient: [id number] (GREGORY FATIMA) CPT: 79598 ICD10: I75.021;I99.8 Referring Physician: ARIK CLEMENT ?? [...] At [facility] Range Method Time Signature VB Text Department: Vascular Surgery Lab VASCUBASE Report Patient: [id number] (GREGORY FATIMA) CPT: 85220 ICD10: I97.610;I99.8 Referring Physician: ARIK CLEMENT ?? [...] ORDERABLES POCT Glucose (07/20/2017 3:41 AM EST) P athologist Signature POC Glucose 199 65 - 199 [facility] mg/dL [facility] Comment: Supplemental ranges: <140 mg/dL before meals <180 mg/dL all other times of the day Specimen Anatomical Collection Method Collection Time Receive d Time (Source) Location / / Volume Laterality Blood specimen 07/20/2017 3:41 AM 017 3:41 (specimen) EST AM EST Arik Clement MD POINT OF CARE TEST ORDERABLE S Performing Organization Address City/[facility]/ZIP [facility] [place] [place] [address] Lactate, whole blood, send to lab (Leb/CGP) (07/20/2017 2:25 AM EST) athologist Signature Lactate WB 2.0 0.5 - 2.2 [facility] mmol/L [facility] Specimen Anatomical Collection Method Collection Time Receive d Time (Source) Location / / Volume Laterality Blood specimen Venous Draw / 07/20/2017 2:25 AM 2016 2:37 (specimen) Unknown EST AM EST Resulting Agency Comment Spec In Lab Zulma Samuel MD CHEMISTRY ORDERABLES Performing Organization Address City/[facility] Code Phon e Number [address] (ABNORMAL) APTT (07/20/2017 2:25 AM EST) athologist Signature PTT 36 (H) 25 - 35 sec [facility] [...] Reaves MD HEMATOLOGY ORDERABLES Performing Organization Address City/[facility]/[place] [address] (ABNORMAL) Prothrombin Time (07/20/2017 2:25 AM EST) athologist Signature PT 17.7 (H) 11.8 - 14.0 [place] [...] City/State/[place] [address] (ABNORMAL) Basic Metabolic Panel (non-fasting) (07/20/2017 2:25 AM EST) P athologist Signature Glucose Lvl 187 65 - 199 [facility] mg/dL [facility] Comment: Diabetes: >=200 mg/dL plus symp toms BUN 35 (H) 10 - 20 mg/dL [facility] Creatinine 1.51 (H) 0.80 - 1.50 mg/dL [facility] Sodium 134 (L) 135 - 145 mmol/L [facility] Potassium Not Perf 3.5 - 5.0 mmol/L [facility] Comment: Specimen hemolyzed. Called by: [facility], Read back by: Chitra Orantes, Date/Time:07/20/17 03:05. Please note: ??Patients with WBC >100,00 0 may have falsely elevated Potassium levels. ??For accurate Potassium quantif ication in these patients send serum separator tube (gold top) for subsequent determinations. ??Contact the Clinical Chemistry Laboratory if there are any qu estions. Chloride 92 (L) 98 - 107 mmol/L [facility] [...] or in patients with acute kidney failure. http://[employer]/DHnkdep http://[employer]/DHMCnkf Specimen Anatomical Collection Method Collection Time Receive d Time (Source) Location / / Volume Laterality Blood specimen 07/20/2017 2:25 AM 017 2:33 (specimen) EST AM EST Resulting Agency Comment Spec In Lab Annita Reaves MD CHEMISTRY ORDERABLES Performing Organization Address City/State/ZIP Code Phon e Number [place] [id number] documented in this encounter [...] 5 mL 1022 (Given - Provider: Laura Vega, VAMSI) 5 mL, Intravenous, 2 TIMES DAILY, First [...] Ines Cantu, RN)1020 (Given - Provider: Laura Vega, VAMSI) 2 [...] to med 0-8,000 Units, Intravenous, BOLUS PER ADWOA PROTOCOL, [...] at 171, Low blood sugar
For BG 50- 70: [...]
Routine documented in this encounter Care Teams Biofuels Plant Superintendent Relationship Specialty Start Date End Date Lovely Vicente MD PCP - General 04/16/[address] [place] [address] documented as of this encounter
--- OUTSIDE RECORDS SUMMARY | 2022-03-27 09:24 | XMS_ITS | Encounter Summary ---
:1945 Author Organization [facility] [place] [address] Care Team Providers Name Role Phone Lovely Vicente MD Primary Care Provider Reason for Visit Reason Onset Date Comments Other 07/22/2017 lovenox bridge Encounter Details Date Type Department Care Team Description 07/22/2017 Telephone Cardiology at [facility] Cadena RN Other (lovenox bridge) [place] [address] Social History Tobacco Use Types Packs/Day [...] 4:49 PM EST VAMSI Del Castillo, at [facility], called earlier today with a question re: lovenox bridge for this patient who was recently discharged [facility] r/t a blood clot. Discharge note faxed to [facility] (fax# [phone], Ph#: [phone]) which contains instructions r/t lovenox bridge as follows: Anticoagulation: on lovenox bridge to therapeutic coumadin for AFib. Goal INR 2-3. At discharge INR=1.5. The lovenox injections can stop when INR >2, coumadin will continue indefinitely. documented in this encounter Plan of Treatment Upcoming Encounters Date Type Specialty Care Team Description 05/28/2022 Appointment Cardiology Zulma Dolan MD [facility] [place], [place] [address] (Wo rk) 05/28/2022 Laboratory Appointment Lab 05/28/2022 Office Visit Cardiology Zulma Dolan MD [facility] [place] [address] Liz Poole PA [facility] [place] [address] 06/10/2022 Office Visit Dermatology Laura Scherer MD [facility] [address] [place], [place] [address] (Wo rk) documented as of this encounter Visit Diagnoses Not on filedocumented in this encounter Care Teams It Corporate Recruiter Relationship Specialty Start Date End Date Lovely Vicente MD PCP - General 04/16/15 [facility] [address] [place] [address] documented as of this encounter
--- OUTSIDE RECORDS SUMMARY | 2022-03-27 09:26 | XMS_ITS | Encounter Summary ---
:1945 Author Organization [facility] [place] [address] Care Team Providers Name Role Phone Lovely Vicente MD Primary Care Provider Encounter Details Date Type Department Care Team Description 07/08/2017 Orders Only [facility] [address] Social History Tobacco Use Types Packs/Day [...] Dolan MD [facility] [place] [address] [place] [address] (Wo rk) 05/28/2022 Laboratory Appointment Lab 05/28/2022 Office Visit Cardiology Zulma Dolan MD [facility] [place] [address] Liz Poole PA [facility] [place] [address] 06/10/2022 Office Visit Dermatology Laura Scherer MD [facility] ER [address] [phone] (Wo rk) documented as of this encounter Procedures Procedure Name Priority Date/Time Associated Diagnosis Comme nts TRANSESOPHAGEAL Routine 07/08/2017 Results for this ECHOCARDIOGRAM (AVELINO) procedu re are in the results section. documented in this encounter Results Transesophageal Echocardiogram (AVELINO) (07/08/2017) Anatomical Region Laterality Modality Other Specimen (Source) Anatomical Location Collection Method / Collectio n Time Received Time / Laterality Volume 07/08/2017 Narrative 07/08/2017 12:25 PM EST Procedure: ?Transesophageal Echocardiogram Patient: ?NATALYA Mccollum ? (Age): 1945(72y) Med Rec#: ? [id number] ?Sex: ?M ? Site Loc: ? Ht / Wt: ??(cm)/ (kg) ? Pt. Loc: ? Study Date: ?? 07/07/2017 ?Pt. Type: Tape: ? Referring: Yuan Retana Reading: Yifan Perez MD ([id number]) Performing: Yifan Perez MD ([id number]) Diagnosis: SUMMARY: 1. Intraoperative AVELINO performed at the [facility] of Dr. Mike for the [...] ? Mid-Inferior ?Hypokinetic ? Mid-Inferoseptal ?Hypokinetic ? Preston-Septal ? Hypokinetic ? Preston-Anterior ? Hypokinetic ? Preston-Lateral ?Hypokinetic ? Preston-Inferior ? Hypokinetic ? Preston-Tip ?Not Seen ? This report has been electronically sign ed by: _ Yifan Perez MD ? 07/08/2017 12 :25:18 Images reviewed and interpretation verif ied [facility] Cardiac Ultrasound Laboratory Procedure Note Yifan Perez MD - 07/08/2017Formatt ing of this note might be different from the original. Procedure: Transesophageal Echocardiogra m Patient: NATALYA MCBRIDE(Age): [birth year]72y) Med Rec#: [id number] Sex: M Site Loc: Ht / Wt: (cm)/ (kg) Pt. Loc: Study Date: 07/07/2017 Pt. Type: Tape: Referring: Yuan Retana Reading: Yifan Perez MD ([id number]) Performing: Yifan Perez MD ([id number]) Diagnosis: SUMMARY: 1. [facility] [...] Hypokinetic Mid-Posterolateral Hypokinetic Mid-Inferior Hypokinetic Mid-Inferoseptal Hypokinetic Preston-Septal Hypokinetic Preston-Anterior Hypokinetic Preston-Lateral Hypokinetic Preston-Inferior Hypokinetic Preston-Tip Not Seen This report has been electronically sign ed by: _ Yifan Perez MD 07/08/2017 12:25:18 Images reviewed and interpretation elvie hwang [facility] Cardiac Ultrasound Laboratory Unknown ECHO ORDERABLES documented in this encounter Visit Diagnoses Not on filedocumented in this encounter Care Teams Director Of Photography Relationship Specialty Start Date End Date Lovely Vicente MD PCP - General 04/16/[address] [place] [address] documented as of this encounter
--- OUTSIDE RECORDS SUMMARY | 2022-03-27 09:26 | XMS_ITS | Encounter Summary ---
:1945 Author Organization [facility] [place] [address] Care Team Providers Name Role Phone Lovely Vicente MD Primary Care Provider Reason for Referral Consultation (Routine) - Closed Specialty Diagnoses / Referred By Contact Referred To Contact Procedures Cardiac Rehabilitation Diagnoses S/P CABG x 3 Yuan Webber, Cardiac Rehab, [address] [place] CARDIOTHORACIC [address] [place] [address] Referral ID Status Reason Start Date Expiration Date Visits V isits Requested Authorized [id number] Closed Consult, 07/14/2017 01/10/2018 36 36 Test & Treat Reason for Visit Auth/Cert Specialty Diagnoses / Procedures Referred By Contact Refer red To Contact Diagnoses STEMI (ST elevation myocardial infarction) NSTEMI STEMI Procedures CARDIAC CATHETERIZATION NAYE IPI Referral ID Status Reason Start Date Expiration Date Visits Requ ested Visits Authorized [id number] 1 1 Encounter Details Date Type Department Care Team Description 07/05/2017 - Hospital Encounter Cardiac Special Daphne Shahid MD [facility] [place] [address] Non-ST elevation myocardial infarction ( NSTEMI); 07/14/2017 Care Unit Yuan Preciado MD [facility] [place] [address] S/P CABG x 3 [place] [id number] Social History Tobacco Use Types Packs/Day Years [...] Patient Age: 72 y.o. Birthdate: 1945 Language: Tajik Race: White Ethnicity: Not nor Admit Date: [...] , @ 1:20p Patient to follow-up with Dry Wall Sprayer/heart failure team in one week. An appointment will be made for you. You may call [phone] Patient to follow-up with Cardiac Surgery, Dr. Yuan Webber, in ~ 4 weeks with CXR, EKG. Inpatient Provider Contact Information: [facility] Section of Cardiac Surgery [facility] [place] [address] FAX [phone] Discharge Diagnoses (Hospital Problems) Primary Diagnoses: CAD [...] by mouth daily. 90 tablet 3 07/05/2017 [id number] ??? ascorbic acid, vitamin C, (VITAMIN C) [...] hospital and ruled infor non-ST segment elevation [place]. This almost certainly represents the residual of [...] Course: Gregory Hoang was admitted to [facility] on 07/05/2017 via the Cardiology Service. During [...] not take or discontinue any prescription or xzrn-etw-uduprxg medications without asking your doctor or pharmacist [...] Yuan Webber and/or the Cardiac Surgery Physician Moisture Conditioner Operator Team may be reached at . [...] Dr. Yuan Webber. You may use a Kennett Track or treadmill but avoid any pulling [...] friends, go to a movie, go to voodoo, etc. Heavy activities: No hunting, skiing, jogging, snow shoveling, snowmobiling, lawn mowing, swimming, golf or tennis until after your return appointment with the surgeon. Do not ride motorcycles, TERMINALFOUR's tractors or horses. Avoid the use of [...] should resume a low fat, low cholesterol, [place] Heart Association Diet/Diabetic diet. Driving: No driving [...] , @ 1:20p Patient to follow-up with Dry Wall Sprayer/heart failure team in one week. Appointment will be made for you. You may call [phone] Patient to follow-up with Cardiac Surgery, Dr. Yuan Webber, in ~ 4 weeks with CXR, EKG. Cardiac Rehabilitation: Gregory Hoang was seen today regarding participation in the outpatient Phase 2 Cardiac Rehabilitation at [facility]. The patient agrees to a referral to this program. The referral will be sent at discharge and the patient should be contacted by the Program within 1- 2 weeks from discharge. ?? Future Appointments and Orders Future Appointments Provider Department Dept Phone 09/07/2017 3:00 PM LAB, THREE L Lab 3L [facility] [phone] 09/07/2017 4:00 PM Luz Prescott MD Endocrinology at [place] [phone] Future Orders Complete By Expires EKG 12 Lead [EKG1 Custom] 08/14/2017 02/13/2018 Process Instructions: Scheduling Instructions: Questions: Which location will this be performed?: [place] Is a rhythm strip needed?: No If EKG Reason is Pre-op Evaluation, indicate diagnosis for surgery.: XR Chest PA & Lateral (Generic) [[id number] Custom] 08/14/2017 02/13/2018 Process Instructions: Scheduling Instructions: Questions: Where will study be performed?: [place] [facility] Portable exam?: Reason for exam and clinical history: CABG x 3 Other pertinent information: Stat read required?: Date of injury if applicable: Requested Time: Referral to Cardiac Rehab [WKQ407 Custom] As directed Process Instructions: If no progress note charted, please enter Clinical details in comments. Scheduling Instructions: Questions: My question or request is: s/p CABG. Cardiac rehab at [facility] Referral to Home Health - at DISCHARGE [NFN0599 CPT(R)] As directed Process Instructions: Scheduling Instructions: Comments: DOCUMENTATION FOR VNA SERVICES (INCLUDING THOSE PATIENTS WITH MEDICARE COVERAGE REQUIRING HOME VNA SERVICES AND/OR HOSPICE SERVICES) PATIENT'S LOCATION: Gregory Hoang [address] [place] [address] [place] [id number] (home) Telephone Information: Supply Teacher's Name: self In discussion with the attending physician, it is certified that this patient is under their care and that they, or a Nurse Practitioner, or Physician Moisture Conditioner Operator who is working directly with them, [...] [facility] ([facility] [place] [facility] in [place]) PHONE: [phone] FAX: [phone] RN orders: Cardiopulmonary assessment, incisional assessment, assess vital signs, assessment of rehab progress, medication management and effectiveness, home safety evaluation. Please draw INR if indicated and send result to:Dr Vicente [phone] PT ORDERS: Continue rehab for endurance, gait stability and strength with mobility and transfers. Home safety evaluation. Home exercise program if appropriate. Start of Care Date:24-48 hours after discharge SPECIAL INSTRUCTIONS: For any follow up questions, needs, or issues please call the Cardiac Surgery Office at [phone] FOR MEDICARE ONLY: (please delete this section [...] [facility] Section of Cardiac Surgery [facility] [address] FAX [phone] Date: 07/14/2017 CC: MD Ivania Cr Betsy, PA [address] [place] [phone] documented in this encounter Discharge Instructions Discharge [...] not take or discontinue any prescription or rymp-gjp-aqlgshk medications without asking your doctor or pharmacist [...] juice or regular (not diet) soda 6 Parenthoodss small box of raisins 4 glucose tablets [...] Yuan Webber and/or the Cardiac Surgery Physician Moisture Conditioner Operator Team may be reached at . [...] Dr. Yuan Webber. You may use a Kennett Track or treadmill but avoid any pulling [...] friends, go to a movie, go to voodoo, etc. ?? Heavy activities: No hunting, skiing, jogging, snow shoveling, snowmobiling, lawn mowing, swimming, golf or tennis until after your return appointment with the surgeon. Do not ride motorcycles, TERMINALFOUR'FitVia tractors or horses. Avoid the use of [...] should resume a low fat, low cholesterol, [place] Heart Association Diet/Diabetic diet. ?? Driving: No [...] @ 1:20p ?? Patient to follow-up with Dry Wall Sprayer/heart failure team in one week. An appointment has been made for you, you can call [phone] ?? Patient to follow-up with Cardiac Surgery, Dr. Yuan Webber, in ~ 4 weeks with CXR, EKG. ? Cardiac Rehabilitation: Gregory Hoang??was seen today regarding participation in the outpatient Phase 2 Cardiac Rehabilitation at [facility]. ?? The patient agrees to a referral to this program.? The referral will be sent at discharge and the patient should be contacted by the Program within 1- 2 weeks from discharge. ? Future Appointments and Orders Future Appointments Provider Department Dept Phone ?? 09/07/2017 3:00 PM LAB, THREE L Lab 3L [facility] [phone] ?? 09/07/2017 4:00 PM Luz Prescott MD Endocrinology at [place] [phone] Future Orders Complete By Expires ?? EKG 12 Lead [EKG1 Custom] 08/14/2017 02/13/2018 ?? Process Instructions: ? Scheduling Instructions: ? Questions: ? Which location will this be performed?: [place] ?? Is a rhythm strip needed?: No ?? If EKG Reason is Pre-op Evaluation, indicate diagnosis for surgery.: ?? XR Chest PA & Lateral (Generic) [[id number] Custom] 08/14/2017 02/13/2018 ?? Process Instructions: ? Scheduling Instructions: ? Questions: ? Where will study be performed?: [place] [facility] ?? Portable exam?: ?? Reason for exam and clinical history: CABG x 3 ?? Other pertinent information: ?? Stat read required?: ?? Date of injury if applicable: ?? Requested Time: ?? Referral to Cardiac Rehab [[id number] Custom] As directed ? Process Instructions: ?? If no progress note charted, please enter Clinical details in comments. ?? Scheduling Instructions: ? Questions: ? My question or request is: s/p CABG. Cardiac rehab at [facility] ? Arrangements for VNA/home care: As [...] RN - 07/14/2017 2:34 PM EST The patient/traffic representative has been provided a list of Home Health Agencies/DME vendors which serve their preferred geographic area. A letter describing our affiliations was reviewed with them and theywere educated about their right to choose where referrals are placed. Patient requests referral to [facility] PHONE: [phone] FAX: [phone] Expected date of discharge: 07/14 Referral routed to the Capsule Inspector for matching with agency/vendor and to provide [...] [facility] [place] Endocrinology Diabetes Management Pager [phone] 20 minutes of this 35 minute visit was spent with the patient in counseling on diabetes and treatment plan, reviewing all glucose and insulin data as well as relevant laboratory results with the patient, and coordination of care on the inpatient unit including nursing and primary team. Zulma Andres, RN - 07/14/2017 10:30 AM EST The patient/traffic representative has been provided a list of Home Health Agencies/DME vendors which serve their preferred geographic area. A letter describing our affiliations was reviewed with them and theywere educated about their right to choose where referrals are placed. Patient requests referral to : Yasmani Munguia ([facility] [place] [facility] in [place]) PHONE: [phone] FAX: [phone]. Expected date of discharge: 07/14/17 Referral routed to the Capsule Inspector for matching with agency/vendor and to provide [...] hours. If BG remains greater than 240, ofnvav13 units (no more than three times) &??call [...] [facility] [place] Endocrinology Diabetes Management Pager [phone] 15 minutes of this 25 minute visit [...] of infiltration/extravasation Discussed plan of care with MOLD STAMPER and RN. Elevate exrtemity and apply intermittent Warm compresses. Name of MD contacted Dr. Shaw Brown 07/13/2017 @ 0628 Name of RN contacted Ale Rangel RN Name of Pharmacist if consulted NA Name of Plastics MD ( if consulted) NA (Mandatory photo for infiltrations/ extravasations scoring a stage 2 or greater, but recommended forstage 1)( include measuring tape and identifier in the photo) SCRUM COACH CARING FOR THIS PATIENT WILL CONTINUE TO [...] measuring tape and identifier in the photo) SCRUM COACH CARING FOR THIS PATIENT WILL CONTINUE TO [...] regard to both infiltrates addressed by this fha underwriter.All of Mr. Hoang's responses were entirely appropriate. Images of infiltrates attached here. Martha Sharp APRN - 07/13/2017 8:01 AM EST Cardiac Surgery Progress Note: ID: [id number] 72 year old male POD#6 s/p CABGx3 [...] discharge. ?? I have met with the patient/traffic representative to discuss discharge planning needs. I have provided the [facility], Office of Care Management letter from the Blueberry Grower pertaining to rehab referrals. I have also provided a letter describing our affiliations within the [facility] and educated them about their right to choose where referrals are placed. ?? I reviewed the different levels of rehab including SNF, swing, acute and LTAC with the patient/traffic representative. ?? The patient/traffic representative has been provided a list of facilities within their preferred geographic area. ?? I have requested that the patient/traffic representative provide at least three choices for referral. ?? The patient/traffic representative have requested referrals to: ?? 1. . ?? 2. [place] ?? 3. More to be entered ?? Expected date of discharge: 07/14 Note routed to Capsule Inspector who will communicate referrals to facilities and [...] hours. If BG remains greater than 240, jaffqv44 units (no more than three times) & [...] [facility] [place] Endocrinology Diabetes Management Pager [phone] 20 minutes of this 35 minute visit was spent with the patient in counseling on diabetes and treatment plan, reviewing all glucose and insulin data as well as relevant laboratory results with the patient, and coordination of care on the inpatient unit including nursing and primary team. Makayla Stevenson APRN - 07/12/2017 9:52 AM EST Cardiac Surgery Progress Note: ID: [id number] 72 year old male POD#5 s/p CABGx3 [...] hours. If BG remains greater than 240, hyblbe98 units (no more than three times) & [...] AM EST Cardiac Surgery Progress Note: ID: [id number] 72 year old male POD#4 s/p CABGx3 [...] T2DM, CAD, HTN, CHF NYHA Class III-IV, MRAIA VICTORIA on CPAP, BPH, thyroid carcinoma s/p [...] hours. If BG remains greater than 240, miuvyb44 units (no more than three times) & [...] AM EST Cardiac Surgery Progress Note: ID: [id number] 72 year old male POD#3 s/p CABGx3 [...] Gas) No results found for: PHART, PO2ART, RLN0QDF Assessment/Plan: 72 year old male POD#3 s/p [...] Encounter Note Patient Name: Gregory Hoang : [id number] MR#: [id number] Admit Date: 07/05/2017 4:20 PM Hospital Day 4 days Narrative: Patient was sitting in chair, hugging heart pillow, opened his eyes, nodding to come into room Assessment: Patient was sleepy. Intervention and Outcome: Introduced coat tailor services and patient reached his hand out in appreciation. Follow-up: Barbering Teacher remains available for support. Time in [...] 10:45 AM EST Report given to staff home therapy rn to cover care Maddison Cee PA - 07/09/2017 9:00 AM EST Cardiac Surgery Progress Note: ID: [id number] 72 year old male POD#2 s/p CABGx3 [...] Surgeon on rounds. Signed: STEPHANIE Iqbal [facility] Section of Cardiac Surgery Date: 07/09/2017 Magnolia Santiago [facility] - 07/09/2017 1:33 AM EST [...] when IABP d/c'ed. Gretchen Carolina, PT Pager [phone] Maddison Cee PA - 07/08/2017 11:27 AM EST Cardiac Surgery Progress Note: ID: [id number] 72 year old male POD#1 s/p CABGx3 [...] Surgeon on rounds. Signed: STEPHANIE Iqbal [facility] Section of Cardiac Surgery Date: 07/08/2017 Nick [...] unit. NICK SEGAL MD 07/08/2017 Jay Munoz [facility] - 07/08/2017 4:33 AM EST [...] in place in R femoral. No hematoma. SPA ASSISTANT MANAGER- Intact Psych- Anxious Skin- Dry, no [...] intact. IABP in place in R femoral. SPA ASSISTANT MANAGER- Intact Psych- Anxious Skin- Dry, no [...] note for details. DAPHNE SHAHID MD Pager [phone] Jet Mckenna MD - 07/05/2017 6:48 PM EST Preliminary Cardiac Catheterization Procedure Note: Procedure(s) performed: Left heart cath, IABP insertion Access: Right CLOTH PRESSER-->8fr IABP A time-out was conducted prior to [...] Shahid MD PCP: Lovely Vicente MD PCP#: [phone] Patient Active Problem List Diagnosis Code ??? 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 [facility] Labs: INR 1.0 WBC 5.88 Hgb [...] - ISS - hold metformin - f/u [facility] #Home Meds - continue levothyroxine 175mcg - CPAP at night # Routine - DVT PPx: heparin drip - Diet: NPO - Code Status: FULL - Dispo: [facility] Cedric Bey MD Internal Medicine, PGY-2 Cardiology S1, Team Pager # [phone] CARDIOLOGY ATTENDING NOTE Patient: Gregory Hoang Date [...] amenable for PCI. DAPHNE SHAHID MD Pager [phone] documented in this encounter Miscellaneous Notes Consult Note - Daphne Shahid MD - 07/14/2017 11:46 AM EST Heart Failure Service Inpatient Consult Note Gregory Hoang Date of : 1945 Age: 72 y.o. Today's date: 07/14/17 PCP: Lovely Vicente MD TUGBOAT CAPTAIN: None [facility] of Service[facility] Reason for Consult: Dr. Webber has requested [...] following studies: EKG 07/14/17: NSR 75 bpm, METAL BONDER anterior infarct, LAD CXR 07/11/17: FINDINGS: Sternotomy wires. The patient has been extubated, left chest tube removed, and Killdeer-Suzi catheter removed since the 07/07/2017 study. Atelectasis [...] was discussed with Zehra. Jaden Kelley MD Production Control Technologist Pager [phone] CARDIOLOGY ATTENDING NOTE Patient: Gregory Hoang Date [...] heart failure clinic. DAPHNE SHAHID MD Pager [phone] Plan of Care - Alden Chavarria, [place] - 07/14/2017 11:35 AM EST Problem: Patient [...] Discharge Disposition: home with assist Alden Chavarria, [place] Pager: [phone] Inpatient Physical Therapy Problem: Acute Rehab Services [...] sit/sit to supine -- Bed Mobility Goal, Ware Level supervision required -- Bed Mobility Goal, [...] - 3 days -- Gait Training Goal, Ware Level supervision required -- Gait Training Goal, [...] days -- Transfer Training Goal, Activity Type fkl-pj-kwfyi/mputm-pm-lch;joz-pu-qacas/hbtfk-yh-ksn;toilet -- Transfer Train Goal, Ware Level supervision required -- Transfer Training Goal, Additional Goal adheres to sternal precautions during transfer -- Transfer Training Goal, Outcome -- goal met Plan of Care - Deniec Jacobson RN - 07/14/2017 4:55 AM EST [...] keeping present for 2 days per family. Senior Manufacturing Test Engineer noted of frustrations, house keeping sent to room. Patient offered showered twice, refused. at bedside, frustrated that shower not complete, informed that patient had refused several times. requesting to see RACK ROOM WORKER, paged sent to Martha, will come to bedside (middle of consult). not willing to wait, Martha notified that family had gone home. Encouraged to come for morning rounds a t 8am. Diabetes team at bedside - insulin adjustments made. Call cabello in reach. Continue to monitor. PLAN MOVING FORWARD: Ambulate, dressing changes BID, Please change drsg at 4am per Martha RACK ROOM WORKER request. INDIVIDUALIZED FALL PREVENTION INTERVENTIONS: Patient-specific [...] levels on the lower side, 60ml of Mcdonald juice given after a FS of 80. [...] Conf 07/13/17 0502 Interdisciplinary Rounds/Family Conf Participants casework supervisor;dietitian/nutrition services;nursing;occupational therapy;patient;pharmacy;physical therapy;physician Plan of Care [...] Anticipated Discharge Disposition: home with assist Pager: [phone] CLARISSA SEGAL, PT 07/12/2017 Physical Therapy Rehabilitation [...] to sit/sit to supine Bed Mobility Goal, Ware Level supervision required Bed Mobility Goal, Additional Goal adheres to psternal precautions for transfer Goal: Gait Training Goal Stand Alone Therapy Goal Outcome: Ongoing (Interventions Implemented as Appropriate) 07/12/17 1225 Gait Training Goal Gait Training Goal, Date Established 07/12/17 Gait Training Goal, Time to Achieve 2 - 3 days Gait Training Goal, Ware Level supervision required Gait Training Goal, Assist [...] 3 days Transfer Training Goal, Activity Type plx-ww-arabp/ooycw-ay-xdq;off-bz-gxanq/cciai-cc-uzo;toilet Transfer Train Goal, Ware Level supervision required Transfer Training Goal, Additional Goal adheres to sternal precautions during transfer Consult Note - Octavia Vaughn RN - 07/12/2017 10:50 AM EST [facility] CARDIAC REHABILITATION Gregory Hoang was seen today regarding participation in the outpatient Phase 2 Cardiac Rehabilitation at [facility]. The patient agrees to a referral [...] IV site, amio to other piv and SYSTEM SOFTWARE DEVELOPER at bedside to help assess, IV [...] Outcome: Ongoing (Interventions Implemented as Appropriate) 07/11/17199907/11/17200907/12/17 [facility] Daily Care Interventions Self-Care [...] staff, he stood and marched in place. [place] weak, wanting to sit back down. Remained [...] Outcome: Ongoing (Interventions Implemented as Appropriate) 07/05/17 5219 Mutuality/Individual Preferences What Anxieties, Fears or Concerns [...] Health/Prescription Coverage: Primary Insurance: MEDICARE Secondary Insurance: [id number] [place] Prescription Coverage: yes Preferred Pharmacy: [facility] [place] Other: none Primary Care Provider: Lovely Vicente MD [phone] Patient/Caregiver Goals of Treatment:live and get my breath back Potential Needs for Transition of Care: Rehab/SNF: [facility]; [facility] Home Health: NA DME: TBD Dialysis: na Community Resources: available Transportation: yes Other: none Anticipated Barriers to Discharge/Special Considerations: none Plan: Likely SNF Rehab before home A member of the Care Management team will continue to monitor progress, follow for continuity of care and assist with transition of care planning. ERLIN Weiss Pager: [phone] Consult Note - Katerin Azul RN - [...] management and to provide a review of jail diabetes care. Diabetes History: Gregory Hoang has [...] patient W/E coverage, Dr. Jeane Tatum, pager [phone] Katerin Patel. STACIE Azul Endocrinology Diabetes Management Pager [phone] Plan of Care - Stephanie Godoy RN [...] Operative Note Patient Name: Gregory Hoang : [id number] MR#: [id number] Case Date: 07/07/2017 Surgeon: Surgeon(s) and Role: * Yuan Webber MD - Primary * Michael Drake PA - Physician Moisture Conditioner Operator * Linda Flores PA - Physician Moisture Conditioner Operator Preoperative diagnosis: 3VD Postoperative diagnosis: CAD, [...] Operative Note Patient Name: Gregory Hoang : [id number] MR#: [id number] Case Date: 07/07/2017 Surgeon: Surgeon(s) and Role: * Yuan Webber MD - Primary * Michael Drake PA - Physician Moisture Conditioner Operator * Linda Flores PA - Physician Moisture Conditioner Operator Preoperative diagnosis: 3VD Postoperative diagnosis: CAD, [...] major CV events such as , stroke, [place], repeat revascularization compared to PCI). In this [...] Full Code Katty Jovani, MS3 [facility] Cardiology S1 (Pager [phone]) Plan of Care - Emelia Ibarra RN [...] hospital and ruled infor non-ST segment elevation [place]. This almost certainly represents the residual of [...] chest wall L98.9 ??? Goiter E04.9 ??? MARIAV ICTORIA (obstructive sleep apnea) on CPAP G47.33 ??? [...] with other involved physicians Yuan Webber MD [phone] Med Student Progress Note - Jovani Katty [...] major CV events such as , stroke, [place], repeat revascularization compared to PCI). In this [...] FULL - Dispo: [facility] Katty Hahn, M3 [facility] Cardiology S1 (Pager [phone]) Plan of Care - Stephanie Godoy RN [...] Dolan MD [facility] [address] [place], [place] [address] (Wo lissa) 05/28/2022 Laboratory Appointment Lab 05/28/2022 Office Visit Cardiology Zulma Dolan [place] [address] Liz Poole PA [facility] [place] [address] 06/10/2022 Office Visit Dermatology Laura Scherer MD [facility] [address] TEJA GR-DERMAT OLOGY [place], [place] [address] (Wo rk) Scheduled Orders Name [...] procedure are i n the results section. CARE TECH SCAN 07/15/2017 12:00 Res ults for this [...] f or this ([facility] AM EST procedure are i n the [...] 2017 EXAMINATION: XR CHEST PA AND LATERAL ([employer]) CLINICAL HISTORY: CABG x 3 TECHNIQUE: PA [...] Teague APRN IMG DX ORDERABLES SCAN DOC: CARE TECH (07/15/2017 12:00 AM EST) Narrative 07/15/2017 12:00 [...] Signature POC Glucose 186 65 - 199 [facility] Comment: Supplemental ranges: <140 [...] [facility] [place]/ZIP Code Phon e [place] [address] POCT Glucose (07/14/2017 7:52 AM EST) athologist Signature POC Glucose 126 65 - 199 [facility] Comment: Supplemental ranges: <140 mg/dL before meals <180 mg/dL all other times of the day Specimen Anatomical Collection Method Collection Time Receive d Time (Source) Location / / Volume Laterality Blood specimen 07/14/2017 7:52 AM 017 7:52 (specimen) EST AM EST Yuan Webber MD POINT OF CARE TEST ORDERABLE S Performing Organization Address City/State/[place] [address] (ABNORMAL) Prothrombin Time (07/14/2017 [...] Wilson STACIE HEMATOLOGY ORDERABLES Performing Organization Address City/[facility]/[place] [address] Potassium (07/14/2017 4:46 AM EST) athologist Signature Potassium 4.3 3.5 - 5.0 [facility] mmol/L [facility] Comment: Please note: ??Patients [...] Wilson STACIE CHEMISTRY ORDERABLES Performing Organization Address City/[facility]/[place] [address] POCT Glucose (07/14/2017 4:34 AM EST) athologist Signature POC Glucose 115 65 - 199 [facility] mg/dL [facility] Comment: Supplemental ranges: <140 mg/dL before meals <180 mg/dL all other times of the day Specimen Anatomical Collection Method Collection Time Receive d Time (Source) Location / / Volume Laterality Blood specimen 07/14/2017 4:34 AM 017 4:34 (specimen) EST AM EST Yuan Webber MD POINT OF CARE TEST ORDERABLE S Performing Organization Address City/State/ZIP Code Phon e Number [address] POCT Glucose (07/13/2017 11:33 PM EST) athologist Signature POC Glucose 132 65 - 199 [facility] SU mg/dL [facility] Comment: Supplemental ranges: <140 mg/dL before meals <180 mg/dL all other times of the day Specimen Anatomical Collection Method Collection Time Receive d Time (Source) Location / / Volume Laterality Blood specimen 07/13/2017 11:33 7 (specimen) PM EST 11:33 PM EST Yuan Webber MD POINT OF CARE TEST ORDERABLE S Performing Organization Address City/State/ZIP Code Phon e Number [address] POCT Glucose (07/13/2017 9:25 PM EST) athologist Signature POC Glucose 121 65 - 199 [facility] SU mg/dL [facility] Comment: Supplemental ranges: <140 mg/dL before meals <180 mg/dL all other times of the day Specimen Anatomical Collection Method Collection Time Receive d Time (Source) Location / / Volume Laterality Blood specimen 07/13/2017 9:25 PM 017 9:25 (specimen) EST PM EST Yuan Webber MD POINT OF CARE TEST ORDERABLE S Performing Organization Address City/State/ZIP Code Phon e Number [address] POCT Glucose (07/13/2017 4:55 PM EST) athologist Signature POC Glucose 79 65 - 199 [facility] SU mg/dL [facility] Comment: Supplemental ranges: <140 mg/dL before meals <180 mg/dL all other times of the day Specimen Anatomical Collection Method Collection Time Receive d Time (Source) Location / / Volume Laterality Blood specimen 07/13/2017 4:55 PM 017 4:55 (specimen) EST PM EST Yuan Webber MD POINT OF CARE TEST ORDERABLE S Performing Organization Address City/State/ZIP Code Phon e Number [address] POCT Glucose (07/13/2017 11:16 AM EST) athologist Signature POC Glucose 163 65 - 199 [facility] Comment: Supplemental ranges: <140 mg/dL before meals <180 mg/dL all other times of the day Specimen Anatomical Collection Method Collection Time Receive d Time (Source) Location / / Volume Laterality Blood specimen 07/13/2017 11:16 7 (specimen) AM EST 11:16 AM EST Yuan Webber MD POINT OF CARE TEST ORDERABLE S Performing Organization Address City/State/ZIP Code Phon e Number [address] POCT Glucose (07/13/2017 8:07 AM EST) athologist Signature POC Glucose 96 65 - 199 [facility]dL [facility] Comment: Supplemental ranges: <140 mg/dL before meals <180 mg/dL all other times of the day Specimen Anatomical Collection Method Collection Time Receive d Time (Source) Location / / Volume Laterality Blood specimen 07/13/2017 8:07 AM 017 8:07 (specimen) EST AM EST Yuan Webber MD POINT OF CARE TEST ORDERABLE S Performing Organization Address City/State/ZIP Code Phon e Number [address] (ABNORMAL) Prothrombin Time (07/13/2017 [...] Organization Address City/State/[place] [address] (ABNORMAL) Basic Metabolic Panel (non-fasting) (07/13/2017 4:26 AM EST) athologist Signature Glucose Lvl 95 65 - 199 [facility] mg/dL [facility] Comment: Diabetes: [...] [facility] LAB[facility]ORY Estimated GFR 60 >=60 [facility] Comment: The reported eGFR should be multiplied b y 1.2 for patients. The MDRD is not an appropriate measure o f renal function for patients with body mass extremes or in patients with acute kidney failure. http://New.net/DHnkdep http://New.net/DHMCnkf Specimen Anatomical Collection Method Collection Time Receive d Time (Source) Location / / Volume Laterality Blood specimen 07/13/2017 4:26 AM 017 4:46 (specimen) EST AM EST Resulting Agency Comment Spec In Lab Makayla Wilson APRN CHEMISTRY ORDERABLES Performing Organization Address City/[facility]/ZIP Code Phon e Number [address] POCT Glucose (07/13/2017 3:52 AM EST) athologist Signature POC Glucose 93 65 - 199 [facility] SU mg/dL [facility] Comment: Supplemental ranges: <140 [...] [facility]/ZIP Code Phon e Number [address] POCT Glucose (07/13/2017 12:21 AM EST) athologist Signature POC Glucose 80 65 - 199 [place] [facility] mg/dL [facility] Comment: Supplemental ranges: <140 [...] [facility]/ZIP Code Phon e Number [address] POCT Glucose (07/12/2017 8:22 PM EST) athologist Signature POC Glucose 119 65 - 199 [place] mg/dL [facility] Comment: Supplemental ranges: <140 mg/dL before meals <180 mg/dL all other times of the day Specimen Anatomical Collection Method Collection Time Receive d Time (Source) Location / / Volume Laterality Blood specimen 07/12/2017 8:22 PM 017 8:22 (specimen) EST PM EST Yuan Webber MD POINT OF CARE TEST ORDERABLE S Performing Organization Address City/State/ZIP Code Phon e Number [address] POCT Glucose (07/12/2017 4:02 PM EST) athologist Signature POC Glucose 114 65 - 199 [place] mg/dL [facility] Comment: Supplemental ranges: <140 mg/dL before meals <180 mg/dL all other times of the day Specimen Anatomical Collection Method Collection Time Receive d Time (Source) Location / / Volume Laterality Blood specimen 07/12/2017 4:02 PM 017 4:02 (specimen) EST PM EST Yuan Webber MD POINT OF CARE TEST ORDERABLE S Performing Organization Address City/State/ZIP Code Phon e Number [address] POCT Glucose (07/12/2017 11:28 AM EST) athologist Signature POC Glucose 164 65 - 199 [place] mg/dL [facility] Comment: Supplemental ranges: <140 mg/dL before meals <180 mg/dL all other times of the day Specimen Anatomical Collection Method Collection Time Receive d Time (Source) Location / / Volume Laterality Blood specimen 07/12/2017 11:28 7 (specimen) AM EST 11:28 AM EST Yuan Webber MD POINT OF CARE TEST ORDERABLE S Performing Organization Address City/State/ZIP Code Phon e Number [address] POCT Glucose (07/12/2017 7:34 AM EST) athologist Signature POC Glucose 109 65 - 199 [facility] mg/dL [facility] Comment: Supplemental ranges: <140 mg/dL before meals <180 mg/dL all other times of the day Specimen Anatomical Collection Method Collection Time Receive d Time (Source) Location / / Volume Laterality Blood specimen 07/12/2017 7:34 AM 017 7:34 (specimen) EST AM EST Yuan Webber MD POINT OF CARE TEST ORDERABLE S Performing Organization Address City/State/[place] [address] (ABNORMAL) Basic Metabolic Panel (non-fasting) (07/12/2017 4:11 AM EST) P athologist Signature Glucose Lvl 92 65 - 199 [facility] mg/dL [facility] Comment: Diabetes: >=200 mg/dL plus symp toms BUN 31 (H) 10 - 20 mg/dL [facility] Creatinine 1.23 0.80 - 1.50 mg/dL [facility] [...] Gap Not Calculated 5 - 15 mmol/L [facility] Calcium 8.1 (L) 8.5 - 10.5 mg/dL [facility]ORY Estimated GFR 58 (L) >=60 [facility] Comment: The reported eGFR should be multiplied b y 1.2 for patients. The MDRD is not an appropriate measure o f renal function for patients with body mass extremes or in patients with acute kidney failure. http://Loku[employer]/DHnkdep http://Loku.[employer]/DHnkf Specimen Anatomical Collection Method Collection Time Receive d Time (Source) Location / / Volume Laterality Blood specimen 07/12/2017 4:11 AM 017 8:57 (specimen) EST AM EST Resulting Agency Comment Spec In Lab Makayla Wilson APRN CHEMISTRY ORDERABLES Performing Organization Address City/State/[place] [address] (ABNORMAL) Prothrombin Time (07/12/2017 [...] [facility]/[place] [address] Potassium (07/12/2017 4:11 AM EST) athologist Signature Potassium 3.8 3.5 - 5.0 [facility] mmol/L [facility] Comment: Please note: ??Patients [...] Agency Comment Spec In Lab Makayla Katie [employer]OOK[employer] SAL[employer] AGENT CHEMISTRY ORDERABLES Performing Organization Address City/[facility]/[place] [address] POCT Glucose (07/12/2017 4:10 AM EST) athologist Signature POC Glucose 90 65 - 199 [facility] SU mg/dL [facility] Comment: Supplemental ranges: <140 mg/dL before meals <180 mg/dL all other times of the day Specimen Anatomical Collection Method Collection Time Receive d Time (Source) Location / / Volume Laterality Blood specimen 07/12/2017 4:10 AM 017 4:10 (specimen) EST AM EST Yuan Webber MD POINT OF CARE TEST ORDERABLE S Performing Organization Address City/State/ZIP Code Phon e Number [address] POCT Glucose (07/11/2017 11:57 PM EST) athologist Signature POC Glucose 98 65 - 199 [facility] Comment: Supplemental ranges: <140 mg/dL before meals <180 mg/dL all other times of the day Specimen Anatomical Collection Method Collection Time Receive d Time (Source) Location / / Volume Laterality Blood specimen 07/11/2017 11:57 7 (specimen) PM EST 11:57 PM EST Yuan Webber MD POINT OF CARE TEST ORDERABLE S Performing Organization Address City/State/[place] [address] POCT Glucose (07/11/2017 8:32 PM EST) athologist Signature POC Glucose 146 65 - 199 [facility]dL [facility] Comment: Supplemental ranges: <140 mg/dL before meals <180 mg/dL all other times of the day Specimen Anatomical Collection Method Collection Time Receive d Time (Source) Location / / Volume Laterality Blood specimen 07/11/2017 8:32 PM 017 8:32 (specimen) EST PM EST Yuan Webber MD POINT OF CARE TEST ORDERABLE S Performing Organization Address City/State/[place] [address] XR Chest PA & [...] e xtubated, left chest tube removed, and Killdeer-Suzi catheter removed since the study. Atelectasis at [...] e xtubated, left chest tube removed, and Killdeer-Suzi catheter removed since the study. Atelectasis at [...] POC Glucose 223 (H) 65 - 199 [facility] mg/dL [facility] Comment: Supplemental ranges: <140 mg/dL before meals <180 mg/dL all other times of the day Specimen Anatomical Collection Method Collection Time Receive d Time (Source) Location / / Volume Laterality Blood specimen 07/11/2017 4:05 PM 017 4:05 (specimen) EST PM EST Yuan Webber MD POINT OF CARE TEST ORDERABLE S Performing Organization Address City/State/ZIP Code Phon e Number [address] POCT Glucose (07/11/2017 11:55 AM EST) P athologist Signature POC Glucose 176 65 - 199 [place] mg/dL [facility] Comment: Supplemental ranges: <140 [...] [facility]/[place] [address] POCT Glucose (07/11/2017 7:53 AM EST) athologist Signature POC Glucose 189 65 - 199 [place] [facility] mg/dL [facility] Comment: Supplemental ranges: <140 [...] [facility]/[place] [address] POCT Glucose (07/11/2017 4:22 AM EST) P athologist Signature POC Glucose 151 65 - 199 [place] [facility] mg/dL [facility] Comment: Supplemental ranges: <140 [...] [facility]/[place] [address] Potassium (07/11/2017 2:20 AM EST) athologist Signature Potassium 4.5 3.5 - 5.0 [facility] mmol/L [facility] Comment: Please note: ??Patients [...] [facility]/[place] [address] POCT Glucose (07/11/2017 12:17 AM EST) athologist Signature POC Glucose 162 65 - 199 [facility] mg/dL [facility] Comment: Supplemental ranges: <140 [...] [facility]/ZIP Code Phon e Number [address] POCT Glucose (07/10/2017 8:47 PM EST) athologist Signature POC Glucose 191 65 - 199 [facility] mg/dL [facility] Comment: Supplemental ranges: <140 mg/dL before meals <180 mg/dL all other times of the day Specimen Anatomical Collection Method Collection Time Receive d Time (Source) Location / / Volume Laterality Blood specimen 07/10/2017 8:47 PM 017 8:47 (specimen) EST PM EST Yuan Webber MD POINT OF CARE TEST ORDERABLE S Performing Organization Address City/State/ZIP Code Phon e Number [address] POCT Glucose (07/10/2017 4:06 PM EST) athologist Signature POC Glucose 131 65 - 199 [place] mg/dL [facility] Comment: Supplemental ranges: <140 mg/dL before meals <180 mg/dL all other times of the day Specimen Anatomical Collection Method Collection Time Receive d Time (Source) Location / / Volume Laterality Blood specimen 07/10/2017 4:06 PM 017 4:06 (specimen) EST PM EST Yuan Webber MD POINT OF CARE TEST ORDERABLE S Performing Organization Address City/State/[place] [address] POCT Glucose (07/10/2017 3:08 PM EST) athologist Signature POC Glucose 151 65 - 199 [place] mg/dL [facility] Comment: Supplemental ranges: <140 mg/dL before meals <180 mg/dL all other times of the day Specimen Anatomical Collection Method Collection Time Receive d Time (Source) Location / / Volume Laterality Blood specimen 07/10/2017 3:08 PM 017 3:08 (specimen) EST PM EST Yuan Webber MD POINT OF CARE TEST ORDERABLE S Performing Organization Address City/State/[place] [address] POCT Glucose (07/10/2017 2:25 PM EST) athologist Signature POC Glucose 146 65 - 199 [facility] mg/dL [facility] Comment: Supplemental ranges: <140 mg/dL before meals <180 mg/dL all other times of the day Specimen Anatomical Collection Method Collection Time Receive d Time (Source) Location / / Volume Laterality Blood specimen 07/10/2017 2:25 PM 017 2:25 (specimen) EST PM EST Yuan Webber MD POINT OF CARE TEST ORDERABLE S Performing Organization Address City/State/ZIP Code Phon e Number [address] POCT Glucose (07/10/2017 1:23 PM EST) P athologist Signature POC Glucose 166 65 - 199 [place] mg/dL [facility] Comment: Supplemental ranges: <140 [...] [facility]/ZIP Code Phon e Number [address] POCT Glucose (07/10/2017 11:52 AM EST) P athologist Signature POC Glucose 157 65 - 199 [place] mg/dL [facility] Comment: Supplemental ranges: <140 mg/dL before meals <180 mg/dL all other times of the day Specimen Anatomical Collection Method Collection Time Receive d Time (Source) Location / / Volume Laterality Blood specimen 07/10/2017 11:52 7 (specimen) AM EST 11:52 AM EST Yuan Webber MD POINT OF CARE TEST ORDERABLE S Performing Organization Address City/State/ZIP Code Phon e Number [address] POCT Glucose (07/10/2017 11:01 AM EST) P athologist Signature POC Glucose 158 65 - 199 [place] mg/dL [facility] Comment: Supplemental ranges: <140 mg/dL before meals <180 mg/dL all other times of the day Specimen Anatomical Collection Method Collection Time Receive d Time (Source) Location / / Volume Laterality Blood specimen 07/10/2017 11:01 7 (specimen) AM EST 11:01 AM EST Yuan Webber MD POINT OF CARE TEST ORDERABLE S Performing Organization Address City/State/ZIP Code Phon e Number [address] POCT Glucose (07/10/2017 9:54 AM EST) P athologist Signature POC Glucose 160 65 - 199 [place] mg/dL [facility] Comment: Supplemental ranges: <140 mg/dL before meals <180 mg/dL all other times of the day Specimen Anatomical Collection Method Collection Time Receive d Time (Source) Location / / Volume Laterality Blood specimen 07/10/2017 9:54 AM 017 9:54 (specimen) EST AM EST Yuan Webber MD POINT OF CARE TEST ORDERABLE S Performing Organization Address City/State/ZIP Code Phon e Number [address] POCT Glucose (07/10/2017 8:58 AM EST) athologist Signature POC Glucose 183 65 - 199 [place] mg/dL [facility] Comment: Supplemental ranges: <140 mg/dL before meals <180 mg/dL all other times of the day Specimen Anatomical Collection Method Collection Time Receive d Time (Source) Location / / Volume Laterality Blood specimen 07/10/2017 8:58 AM 017 8:58 (specimen) EST AM EST Yuan Webber MD POINT OF CARE TEST ORDERABLE S Performing Organization Address City/State/[place] [address] POCT Glucose (07/10/2017 8:01 AM EST) P athologist Signature POC Glucose 173 65 - 199 [facility] mg/dL [facility] Comment: Supplemental ranges: <140 mg/dL before meals <180 mg/dL all other times of the day Specimen Anatomical Collection Method Collection Time Receive d Time (Source) Location / / Volume Laterality Blood specimen 07/10/2017 8:01 AM 017 8:01 (specimen) EST AM EST Yuan Webber MD POINT OF CARE TEST ORDERABLE S Performing Organization Address City/State/ZIP Code Phon e Number [address] POCT Glucose (07/10/2017 7:05 AM EST) athologist Signature POC Glucose 166 65 - 199 [place] mg/dL [facility] Comment: Supplemental ranges: <140 mg/dL before meals <180 mg/dL all other times of the day Specimen Anatomical Collection Method Collection Time Receive d Time (Source) Location / / Volume Laterality Blood specimen 07/10/2017 7:05 AM 017 7:05 (specimen) EST AM EST Yuan Webber MD POINT OF CARE TEST ORDERABLE S Performing Organization Address City/State/ZIP Code Phon e Number [address] POCT Glucose (07/10/2017 6:00 AM EST) athologist Signature POC Glucose 162 65 - 199 [facility] mg/dL [facility] Comment: Supplemental ranges: <140 mg/dL before meals <180 mg/dL all other times of the day Specimen Anatomical Collection Method Collection Time Receive d Time (Source) Location / / Volume Laterality Blood specimen 07/10/2017 6:00 AM 017 6:00 (specimen) EST AM EST Yuan Webber MD POINT OF CARE TEST ORDERABLE S Performing Organization Address City/State/ZIP Code Phon e Number [address] (ABNORMAL) Differential, Automated (07/10/2017 4:28 AM EST) [facility] gist Method Time Signature Neutrophils % 87.9 % [facility] Neutr Abs (ANC) 10.70 (H) 1.70 - [facility] 6.10 [facility] x10(3)/[facility] L LABORATORY Lymphocytes % 3.9 % [facility] Lymphocytes Abs 0.5 (L) 0.9 - 3.2 [facility] x10(3)/[facility] LABORATORY Monocytes % 7.0 % [facility] Monocyte Abs 0.8 0.3 - 0.9 [facility] x10(3)/[facility] LABORATORY Eosinophils % 0.3 % [facility] Eosinophils Abs 0.0 0.0 - 0.4 [facility] x10(3)/[facility] LABORATORY Basophils % 0.2 % [facility] Basophils Abs 0.0 0.0 - 0.1 [facility] x10(3)/[facility] LABORATORY Immature Gran % 0.70 % [facility] [...] Organization Address City/State/[place] [address] (ABNORMAL) Hemogram (07/10/2017 4:28 AM EST) Analysis Performed At Patho logist Time Signature WBC 12.2 (H) 4.0 - 9.5 [facility] x10(3)/[facility] LABORATORY RBC 3.31 (L) 4.58 - [facility] 5.54 [facility] x10(6)/[facility] LABORATORY Hemoglobin 9.8 (L) 13.7 - [facility] 16.5 gm/dL [facility] Hematocrit 30.0 (L) 40.5 - [facility] 48.5 % [facility] MCV 90.6 82.9 - [facility] 93.1 fL [facility] MCH 29.6 27.5 - [facility] 32.[address] [facility] MCHC 32.7 32.0 - [facility] 35.7 gm/dL [facility] Platelets 135 (L) 145 - 357 [facility] x10(3)/[facility] LABORATORY RDWSD 50.8 (H) 36.0 - [facility] 45.0 [facility] LABORATORY RDWCV 15.4 (H) 11.4 - [facility] 13.8 % [facility] MPV 10.0 7.6 - 12.9 [facility] LABORATORY nRBC % Auto 0.0 % [facility] nRBC Abs Auto 0.000 0.000 - [facility] 0.000 [facility] x10(3)/[facility] LABORATORY Specimen Anatomical Collection Method Collection Time Receive d Time (Source) Location / / Volume Laterality Blood specimen 07/10/2017 4:28 AM 017 4:36 (specimen) EST AM EST Resulting Agency Comment Spec In Lab Yuan Webber MD HEMATOLOGY ORDERABLES Performing Organization Address City/State/[place] [address] (ABNORMAL) Basic Metabolic Panel (non-fasting) (07/10/2017 4:28 AM EST) athologist Signature Glucose Lvl 178 65 - 199 [facility] mg/dL [facility] Comment: Diabetes: [...] [facility] LABORATORY Estimated GFR 60 >=60 [facility] Comment: The reported eGFR should be multiplied b y 1.2 for patients. The MDRD is not an appropriate measure o f renal function for patients with body mass extremes or in patients with acute kidney failure. http://New.net/DHnkdep http://New.net/DHMCnkf Specimen Anatomical Collection Method Collection Time Receive d Time (Source) Location / / Volume Laterality Blood specimen 07/10/2017 4:28 AM 017 4:36 (specimen) EST AM EST Resulting Agency Comment Spec In Lab Yuan Webber MD CHEMISTRY ORDERABLES Performing Organization Address City/[facility]/ZIP Code Phon e Number [address] POCT Glucose (07/10/2017 4:26 AM EST) P athologist Signature POC Glucose 176 65 - 199 [facility] Comment: Supplemental ranges: <140 mg/dL before meals <180 mg/dL all other times of the day Specimen Anatomical Collection Method Collection Time Receive d Time (Source) Location / / Volume Laterality Blood specimen 07/10/2017 4:26 AM 017 4:26 (specimen) EST AM EST Yuan Webber MD POINT OF CARE TEST ORDERABLE S Performing Organization Address City/State/[place] [address] (ABNORMAL) POCT Glucose (07/10/2017 3:06 AM EST) P athologist Signature POC Glucose 204 (H) 65 - 199 [facility] Comment: Supplemental ranges: <140 mg/dL before meals <180 mg/dL all other times of the day Specimen Anatomical Collection Method Collection Time Receive d Time (Source) Location / / Volume Laterality Blood specimen 07/10/2017 3:06 AM 12/16/2 017 3:06 (specimen) EST AM EST Yuan Webber MD POINT OF CARE TEST ORDERABLE S Performing Organization Address City/[facility]/ZIP Code Phon e Number [address] (ABNORMAL) POCT Glucose (07/10/2017 2:10 AM EST) P athologist Signature POC Glucose 203 (H) 65 - 199 [place] mg/dL [facility] Comment: Supplemental ranges: <140 [...] [facility]/[place] [address] POCT Glucose (07/10/2017 1:09 AM EST) P athologist Signature POC Glucose 196 65 - 199 [place] mg/dL [facility] Comment: Supplemental ranges: <140 mg/dL before meals <180 mg/dL all other times of the day Specimen Anatomical Collection Method Collection Time Receive d Time (Source) Location / / Volume Laterality Blood specimen 07/10/2017 1:09 AM 017 1:09 (specimen) EST AM EST Yuan Webber MD POINT OF CARE TEST ORDERABLE S Performing Organization Address City/State/[place] [address] POCT Glucose (07/10/2017 12:10 AM EST) P athologist Signature POC Glucose 173 65 - 199 [place] mg/dL [facility] Comment: Supplemental ranges: <140 mg/dL before meals <180 mg/dL all other times of the day Specimen Anatomical Collection Method Collection Time Receive d Time (Source) Location / / Volume Laterality Blood specimen 07/10/2017 12:10 7 (specimen) AM EST 12:10 AM EST Yuan Webber MD POINT OF CARE TEST ORDERABLE S Performing Organization Address City/State/ZIP Code Phon e Number [address] POCT Glucose (07/09/2017 11:01 PM EST) P athologist Signature POC Glucose 140 65 - 199 [place] mg/dL [facility] Comment: Supplemental ranges: <140 [...] [facility]/ZIP Code Phon e Number [address] POCT Glucose (07/09/2017 10:05 PM EST) athologist Signature POC Glucose 144 65 - 199 [place] mg/dL [facility] Comment: Supplemental ranges: <140 mg/dL before meals <180 mg/dL all other times of the day Specimen Anatomical Collection Method Collection Time Receive d Time (Source) Location / / Volume Laterality Blood specimen 07/09/2017 10:05 7 (specimen) PM EST 10:05 PM EST Yuan Webber MD POINT OF CARE TEST ORDERABLE S Performing Organization Address City/State/ZIP Code Phon e Number [address] POCT Glucose (07/09/2017 9:31 PM EST) P athologist Signature POC Glucose 121 65 - 199 [place] mg/dL [facility] Comment: Supplemental ranges: <140 mg/dL before meals <180 mg/dL all other times of the day Specimen Anatomical Collection Method Collection Time Receive d Time (Source) Location / / Volume Laterality Blood specimen 07/09/2017 9:31 PM 017 9:31 (specimen) EST PM EST Yuan Webber MD POINT OF CARE TEST ORDERABLE S Performing Organization Address City/State/ZIP Code Phon e Number [address] POCT Glucose (07/09/2017 9:03 PM EST) athologist Signature POC Glucose 98 65 - 199 [place] mg/dL [facility] Comment: Supplemental ranges: <140 mg/dL before meals <180 mg/dL all other times of the day Specimen Anatomical Collection Method Collection Time Receive d Time (Source) Location / / Volume Laterality Blood specimen 07/09/2017 9:03 PM 017 9:03 (specimen) EST PM EST Yuan Webber MD POINT OF CARE TEST ORDERABLE S Performing Organization Address City/State/ZIP Code Phon e Number [address] POCT Glucose (07/09/2017 8:09 PM EST) athologist Signature POC Glucose 117 65 - 199 [place] mg/dL [facility] Comment: Supplemental ranges: <140 mg/dL before meals <180 mg/dL all other times of the day Specimen Anatomical Collection Method Collection Time Receive d Time (Source) Location / / Volume Laterality Blood specimen 07/09/2017 8:09 PM 017 8:09 (specimen) EST PM EST Yuan Webber MD POINT OF CARE TEST ORDERABLE S Performing Organization Address City/State/ZIP Code Phon e Number [address] POCT Glucose (07/09/2017 5:40 PM EST) athologist Signature POC Glucose 155 65 - 199 [facility] mg/dL [facility] Comment: Supplemental ranges: <140 [...] [facility]/ZIP Code Phon e Number [address] POCT Glucose (07/09/2017 4:24 PM EST) athologist Signature POC Glucose 164 65 - 199 [place] mg/dL [facility] Comment: Supplemental ranges: <140 [...] [facility]/ZIP Code Phon e Number [address] POCT Glucose (07/09/2017 3:19 PM EST) athologist Signature POC Glucose 166 65 - 199 [place] mg/dL [facility] Comment: Supplemental ranges: <140 [...] [facility]/ZIP Code Phon [place] [address] POCT Glucose (07/09/2017 2:26 PM EST) athologist Signature POC Glucose 179 65 - 199 [place] mg/dL [facility] Comment: Supplemental ranges: <140 mg/dL before meals <180 mg/dL all other times of the day Specimen Anatomical Collection Method Collection Time Receive d Time (Source) Location / / Volume Laterality Blood specimen 07/09/2017 2:26 PM 017 2:26 (specimen) EST PM EST Yuan Webber MD POINT OF CARE TEST ORDERABLE S Performing Organization Address City/State/[place] [address] (ABNORMAL) POCT Glucose (07/09/2017 1:29 PM EST) P athologist Signature POC Glucose 210 (H) 65 - 199 [place] mg/dL [facility] Comment: Supplemental ranges: <140 mg/dL before meals <180 mg/dL all other times of the day Specimen Anatomical Collection Method Collection Time Receive d Time (Source) Location / / Volume Laterality Blood specimen 07/09/2017 1:29 PM 017 1:29 (specimen) EST PM EST Yuan Webber MD POINT OF CARE TEST ORDERABLE S Performing Organization Address City/State/[place] [address] POCT Glucose (07/09/2017 12:20 PM EST) athologist Signature POC Glucose 172 65 - 199 [place] mg/dL [facility] Comment: Supplemental ranges: <140 mg/dL before meals <180 mg/dL all other times of the day Specimen Anatomical Collection Method Collection Time Receive d Time (Source) Location / / Volume Laterality Blood specimen 07/09/2017 12:20 7 (specimen) PM EST 12:20 PM EST Yuan Webber MD POINT OF CARE TEST ORDERABLE S Performing Organization Address City/State/[place] [address] POCT Glucose (07/09/2017 11:24 AM EST) athologist Signature POC Glucose 156 65 - 199 [place] mg/dL [facility] Comment: Supplemental ranges: <140 [...] Phon [place] [address] POCT Glucose (07/09/2017 11:11 AM EST) athologist Signature POC Glucose 172 65 - 199 [place] mg/dL [facility] Comment: Supplemental ranges: <140 mg/dL before meals <180 mg/dL all other times of the day Specimen Anatomical Collection Method Collection Time Receive d Time (Source) Location / / Volume Laterality Blood specimen 07/09/2017 11:11 7 (specimen) AM EST 11:11 AM EST Yuan Webber MD POINT OF CARE TEST ORDERABLE S Performing Organization Address City/State/ZIP Code Phon e Number [address] POCT Glucose (07/09/2017 10:08 AM EST) athologist Signature POC Glucose 176 65 - 199 [facility] mg/dL [facility] Comment: Supplemental ranges: <140 mg/dL before meals <180 mg/dL all other times of the day Specimen Anatomical Collection Method Collection Time Receive d Time (Source) Location / / Volume Laterality Blood specimen 07/09/2017 10:08 7 (specimen) AM EST 10:08 AM EST Yuan Webber MD POINT OF CARE TEST ORDERABLE S Performing Organization Address City/State/[place] [address] POCT Glucose (07/09/2017 8:02 AM EST) athologist Signature POC Glucose 178 65 - 199 [place] mg/dL [facility] Comment: Supplemental ranges: <140 mg/dL before meals <180 mg/dL all other times of the day Specimen Anatomical Collection Method Collection Time Receive d Time (Source) Location / / Volume Laterality Blood specimen 07/09/2017 8:02 AM 017 8:02 (specimen) EST AM EST Yuan Webber MD POINT OF CARE TEST ORDERABLE S Performing Organization Address City/State/[place] [address] (ABNORMAL) BLOOD GAS 2 ARTERIAL (07/09/2017 5:37 AM EST) Analysis Performed At Patho logist Time Signature pH Art 7.36 7.35 - [facility] 7.45 [facility] pCO2 Art 38 35 - 45 [facility] mmHg [facility] pO2 Art 79 (L) 85 - 104 [facility] LABORATORY HCO3 Art 20.9 20.0 - [facility] 26.0 [facility] mmol/L [facility] LABORATORY BE Art -4.6 (L) -3.0 - 3.0 [facility] mmol/L [facility] Hgb Blood Gas 10.5 (L) 13.7 - [facility] 16.5 gm/dL [facility] O2HB Art 93.8 (L) 94.0 - [facility] 97.0 % [facility] COHB Art 0.3 % [...] [facility] LAB[facility] PF Ratio Art 198 [facility] LABORATORY Specimen Anatomical Collection Method Collection Time Receive d Time (Source) Location / / Volume Laterality Blood specimen 07/09/2017 5:37 AM 017 5:37 (specimen) EST AM EST Yuan Webber MD CHEMISTRY ORDERABLES Performing Organization Address City/State/[place] [address] POCT Glucose (07/09/2017 3:27 AM EST) athologist Signature POC Glucose 192 65 - 199 [facility] Comment: Supplemental ranges: <140 mg/dL before meals <180 mg/dL all other times of the day Specimen Anatomical Collection Method Collection Time Receive d Time (Source) Location / / Volume Laterality Blood specimen 07/09/2017 3:27 AM 017 3:27 (specimen) EST AM EST Yuan Webber MD POINT OF CARE TEST ORDERABLE S Performing Organization Address City/State/[place] [address] (ABNORMAL) Basic Metabolic Panel (non-fasting) (07/09/2017 2:30 AM EST) athologist Signature Glucose Lvl 179 65 - 199 [facility] mg[facility]dL [facility] Comment: Diabetes: >=200 mg/dL plus symp toms BUN 17 10 - 20 mg/dL [facility] LABORATORY Creatinine 1.34 0.80 - 1.50 mg/dL [facility] [...] or in patients with acute kidney failure. http://New.net/DHnkdep http://New.net/DHMCnkf Specimen Anatomical Collection Method Collection Time Receive d Time (Source) Location / / Volume Laterality Blood specimen Venous Draw / 07/09/2017 2:30 AM 2016 2:42 (specimen) Unknown EST AM EST Resulting Agency Comment Spec In Lab Yuan Webber MD CHEMISTRY ORDERABLES Performing Organization Address City/[facility] [place] [address] (ABNORMAL) Potassium (07/09/2017 2:30 AM EST) P athologist Signature Potassium 5.1 (H) 3.5 - 5.0 [facility] mmol/L [facility] Comment: Please note: ??Patients [...] Performing Organization Address City/[facility] [place] [address] (ABNORMAL) Hemogram (07/09/2017 2:30 AM EST) Analysis Performed At Patho logist Time Signature WBC 12.5 (H) 4.0 - 9.5 [place] x10(3)/[facility] LABORATORY RBC 3.38 (L) 4.58 - [place] 5.54 [facility] x10(6)/[facility] LABORATORY Hemoglobin 10.1 (L) 13.7 - [place] 16.5 gm/dL [facility] Hematocrit 30.3 (L) 40.5 - [place] 48.5 % [facility] MCV 89.6 82.9 - [facility] 93.1 [facility] LABORATORY MCH 29.9 27.5 - [place] 32.1 pg [facility] MCHC 33.3 32.0 - [place] 35.7 gm/dL [facility] Platelets 127 (L) 145 - 357 [facility] x10(3)/[facility] LABORATORY RDWSD 49.3 (H) 36.0 - [facility] 45.0 [facility] LABORATORY RDWCV 15.2 (H) 11.4 - [place] 13.8 % [facility] MPV 9.9 7.6 - 12.9 [place] [facility] LABORATORY nRBC % Auto 0.0 % [facility] LABORATORY nRBC Abs Auto 0.000 0.000 - [place] 0.000 [facility] x10(3)/[facility] LABORATORY Specimen Anatomical Collection Method Collection Time Receive d Time (Source) Location / / Volume Laterality Blood specimen 07/09/2017 2:30 AM 017 2:41 (specimen) EST AM EST Resulting Agency Comment Spec In Lab Yuan Webber MD HEMATOLOGY ORDERABLES Performing Organization Address City/State/[place] [address] POCT Glucose (07/09/2017 2:10 AM EST) P athologist Signature POC Glucose 169 65 - 199 [facility] mg/dL [facility] Comment: Supplemental ranges: <140 mg/dL before meals <180 mg/dL all other times of the day Specimen Anatomical Collection Method Collection Time Receive d Time (Source) Location / / Volume Laterality Blood specimen 07/09/2017 2:10 AM 12/15/2 017 2:10 (specimen) EST AM EST Yuan Webber MD POINT OF CARE TEST ORDERABLE S Performing Organization Address City/State/[place] [address] POCT Glucose (07/09/2017 1:01 AM EST) P athologist Signature POC Glucose 173 65 - 199 [place] mg/dL [facility] Comment: Supplemental ranges: <140 [...] [facility]/[place] [address] Blood culture (07/09/2017 12:40 AM EST) Patholo gist Method Time Signature Blood Culture No growth [place] at 5 days. [facility] Specimen Anatomical Collection Method Collection Time Receive d Time (Source) Location / / Volume Laterality Blood specimen STRUCTURE OF RIGHT 07/09/2017 12:40 3:58 (specimen) UPPER LIMB / AM EST AM EST Unknown Resulting Agency Comment Spec In Lab Yuan Webber MD MICROBIOLOGY - BLOOD ORDERAB LES Performing Organization Address City/[facility]/[place] [address] Blood culture (07/09/2017 12:30 AM EST) Patholo gist Method Time Signature Blood Culture No growth [place] at 5 days. [facility] Specimen Anatomical Collection Method Collection Time Receive d Time (Source) Location / / Volume Laterality Blood specimen STRUCTURE OF LEFT 07/09/2017 12:30 06/25 3:59 (specimen) UPPER LIMB / AM EST AM EST Unknown Resulting Agency Comment Spec In Lab Yuan Webber MD MICROBIOLOGY - BLOOD ORDERAB LES Performing Organization Address City/[facility]/[place] [address] (ABNORMAL) Urinalysis Microscopic Exam (07/09/2017 12:05 AM EST) Analysis Performed At Patho logist Time Signature RBC UA 32 (H) 0 - 3 /HPF [facility] WBC UA 5 (H) 0 - 3 /HPF [facility] Squam Epith UA <1 <=4 /HPF [facility] Hyaline Cast 17 (H) 0 - 2 /LPF [facility] LABORATORY Gran Cast UA 1 (H) <=0 /LPF [facility] Uric Ac Bianca Rare (A) None /HPF [facility] LABORATORY Specimen (Source) Anatomical Collection Method Collection Time Re ceived Time Location / / Volume Laterality Urine specimen 07/09/2017 12:05 7 obtained via AM EST 12:39 AM EST indwelling urinary catheter (specimen) Resulting Agency Comment Spec In Lab Yuan Webber MD URINE ORDERABLES Performing Organization Address City/State/[place] [address] (ABNORMAL) Urinalysis with reflex Culture (07/09/2017 12:05 AM EST) Patholo gist Method Time Signature Glucose UA Negative Negative [facility] mg/dL [facility] Protein UA 30 (A) Negative [facility] mg/dL [facility] Bilirubin UA Negative Negative [facility] mg/dL [facility] Comment: Clinical correlation required for positi ve Urine Bilirubin results as false positive may occur with some drugs and d rug related products. If a false positive is suspected a serum total bili yeager should be considered if clinically indicated. Urobilinogen UA Normal Normal mg/dL [facility] pH UA 5.0 5.0 - 8.0 [facility] Blood UA Moderate (A) Negative mg/dL [facility] LABORATORY Ketones UA Negative Negative mg/dL [facility] Nitrite UA Negative Negative [facility] LABORATORY Leukocytes UA Negative Negative [facility] LABORATORY Appearance UA Hazy (A) Clear [place] [facility] LABORATORY Spec [place] UA 1.025 1.002 - 1.030 [facility] Color UA Yellow Yellow [facility] Culture Reflexed No [facility] LABORATORY Specimen (Source) Anatomical Collection Method Collection Time Re ceived Time Location / / Volume Laterality Urine specimen 07/09/2017 12:05 7 obtained via AM EST 12:39 AM EST indwelling urinary catheter (specimen) Resulting Agency Comment Spec In Lab Yuan Webber MD URINE ORDERABLES Performing Organization Address City/State/ZIP Code Phon e Number [address] POCT Glucose (07/08/2017 11:01 PM EST) athologist Signature POC Glucose 191 65 - 199 [facility] mg/dL [facility] Comment: Supplemental ranges: <140 [...] [facility]/ZIP Code Phon e Number [address] POCT Glucose (07/08/2017 10:04 PM EST) athologist Signature POC Glucose 198 65 - 199 [facility] Comment: Supplemental ranges: <140 mg/dL before meals <180 mg/dL all other times of the day Specimen Anatomical Collection Method Collection Time Receive d Time (Source) Location / / Volume Laterality Blood specimen 07/08/2017 10:04 7 (specimen) PM EST 10:04 PM EST Yuan Webber MD POINT OF CARE TEST ORDERABLE S Performing Organization Address City/State/[place] [address] Prepare Albumin 5% in 250 mL (07/08/2017 8:49 PM EST) athologist Signature Dispensed? Yes [facility] Specimen Anatomical Collection Method Collection Time Receive d Time (Source) Location / / Volume Laterality Blood specimen No Charge / 07/08/2017 8:49 PM 017 8:51 (specimen) Unknown EST PM EST Resulting Agency Comment Spec In Lab [facility] ORDERABLES Performing Organization Address City/State/ZIP Code Phon e Number [address] POCT Glucose (07/08/2017 8:28 PM EST) athologist Signature POC Glucose 195 65 - 199 [facility] mg/dL [facility] Comment: Supplemental ranges: <140 mg/dL before meals <180 mg/dL all other times of the day Specimen Anatomical Collection Method Collection Time Receive d Time (Source) Location / / Volume Laterality Blood specimen 07/08/2017 8:28 PM 017 8:28 (specimen) EST PM EST Yuan Webber MD POINT OF CARE TEST ORDERABLE S Performing Organization Address City/State/ZIP Code Phon e Number [address] (ABNORMAL) POCT Glucose (07/08/2017 7:13 PM EST) athologist Signature POC Glucose 220 (H) 65 - 199 [facility] mg/dL [facility] Comment: Supplemental ranges: <140 mg/dL before meals <180 mg/dL all other times of the day Specimen Anatomical Collection Method Collection Time Receive d Time (Source) Location / / Volume Laterality Blood specimen 07/08/2017 7:13 PM 017 7:13 (specimen) EST PM EST Yuan Webber MD POINT OF CARE TEST ORDERABLE S Performing Organization Address City/State/ZIP Code Phon e Number [address] POCT Glucose (07/08/2017 5:04 PM EST) P athologist Signature POC Glucose 147 65 - 199 [facility] mg/dL [facility] Comment: Supplemental ranges: <140 mg/dL before meals <180 mg/dL all other times of the day Specimen Anatomical Collection Method Collection Time Receive d Time (Source) Location / / Volume Laterality Blood specimen 07/08/2017 5:04 PM 017 5:04 (specimen) EST PM EST Yuan Webber MD POINT OF CARE TEST ORDERABLE S Performing Organization Address City/State/[place] [address] (ABNORMAL) BLOOD GAS 2 ARTERIAL (07/08/2017 4:13 PM EST) Analysis Performed At Patho logist Time Signature pH Art 7.38 7.35 - [facility] 7.45 [facility] pCO2 Art 36 35 - 45 [facility] mmHg [facility] pO2 Art 91 85 - 104 [facility] LABORATORY HCO3 Art 20.9 20.0 - [facility] 26.0 [facility] mmol/L [facility] LABORATORY BE Art -4.2 (L) -3.0 - 3.0 [facility] mmol/L [facility] Hgb Blood Gas 11.7 (L) 13.7 - [facility] 16.5 gm/dL [facility] O2HB Art 95.1 94.0 - [facility] 97.0 % [facility] COHB Art 0.6 % [facility] PF Ratio Art 228 [facility] LABORATORY Specimen Anatomical Collection Method Collection Time Receive d Time (Source) Location / / Volume Laterality Blood specimen 07/08/2017 4:13 PM 017 4:13 (specimen) EST PM EST Yuan Webber MD CHEMISTRY ORDERABLES Performing Organization Address City/[facility]/ZIP [facility] Phon e Number [address] POCT Glucose (07/08/2017 4:01 PM EST) athologist Signature POC Glucose 148 65 - 199 [facility] mg/dL [facility] Comment: Supplemental ranges: <140 [...] [facility] [place] [address] POCT Glucose (07/08/2017 3:21 PM EST) P athologist Signature POC Glucose 118 65 - 199 [facility] mg/dL [facility] Comment: Supplemental ranges: <140 mg/dL before meals <180 mg/dL all other times of the day Specimen Anatomical Collection Method Collection Time Receive d Time (Source) Location / / Volume Laterality Blood specimen 07/08/2017 3:21 PM 017 3:21 (specimen) EST PM EST Yuan Webber MD POINT OF CARE TEST ORDERABLE S Performing Organization Address City/State/ZIP Code Phon e Number [address] POCT Glucose (07/08/2017 2:01 PM EST) P athologist Signature POC Glucose 129 65 - 199 [place] mg/dL [facility] Comment: Supplemental ranges: <140 [...] [facility] [place]/ZIP Code Phon e Number [address] POCT Glucose (07/08/2017 11:53 AM EST) athologist Signature POC Glucose 156 65 - 199 [place] mg/dL [facility] Comment: Supplemental ranges: <140 mg/dL before meals <180 mg/dL all other times of the day Specimen Anatomical Collection Method Collection Time Receive d Time (Source) Location / / Volume Laterality Blood specimen 07/08/2017 11:53 7 (specimen) AM EST 11:53 AM EST Yuan Webber MD POINT OF CARE TEST ORDERABLE S Performing Organization Address City/State/ZIP Code Phon e Number [address] POCT Glucose (07/08/2017 11:04 AM EST) athologist Signature POC Glucose 181 65 - 199 [place] mg/dL [facility] Comment: Supplemental ranges: <140 mg/dL before meals <180 mg/dL all other times of the day Specimen Anatomical Collection Method Collection Time Receive d Time (Source) Location / / Volume Laterality Blood specimen 07/08/2017 11:04 7 (specimen) AM EST 11:04 AM EST Yuan Webber MD POINT OF CARE TEST ORDERABLE S Performing Organization Address City/State/[place] [address] (ABNORMAL) POCT Glucose (07/08/2017 9:24 AM EST) athologist Signature POC Glucose 203 (H) 65 - 199 [facility] mg/dL [facility] Comment: Supplemental ranges: <140 [...] [facility] [place] [address] APTT (07/08/2017 8:40 AM [...] [facility] [place] [address] (ABNORMAL) Prothrombin Time (07/08/2017 [...] Organization Address City/State/[place] [address] (ABNORMAL) POCT Glucose (07/08/2017 7:38 AM EST) P athologist Signature POC Glucose 232 (H) 65 - 199 [facility] mg/dL [facility] Comment: Supplemental ranges: <140 [...] [facility] [place] [address] (ABNORMAL) POCT Glucose (07/08/2017 7:07 AM EST) athologist Signature POC Glucose 234 (H) 65 - 199 [facility] mg/dL [facility] Comment: Supplemental ranges: <140 [...] [facility] [place] [address] (ABNORMAL) POCT Glucose (07/08/2017 6:04 AM EST) athologist Signature POC Glucose 225 (H) 65 - 199 [facility] mg/dL [facility] Comment: Supplemental ranges: <140 mg/dL before meals <180 mg/dL all other times of the day Specimen Anatomical Collection Method Collection Time Receive d Time (Source) Location / / Volume Laterality Blood specimen 07/08/2017 6:04 AM 017 6:04 (specimen) EST AM EST Yuan Webber MD POINT OF CARE TEST ORDERABLE S Performing Organization Address City/State/[place] [address] (ABNORMAL) POCT Glucose (07/08/2017 5:31 AM EST) athologist Signature POC Glucose 216 (H) 65 - 199 [facility] mg/dL [facility] Comment: Supplemental ranges: <140 mg/dL before meals <180 mg/dL all other times of the day Specimen Anatomical Collection Method Collection Time Receive d Time (Source) Location / / Volume Laterality Blood specimen 07/08/2017 5:31 AM 017 5:31 (specimen) EST AM EST Yuan Webber MD POINT OF CARE TEST ORDERABLE S Performing Organization Address City/State/[place] [address] (ABNORMAL) POCT Glucose (07/08/2017 4:52 AM EST) athologist Signature POC Glucose 257 (H) 65 - 199 [facility] mg/dL [facility] Comment: Supplemental ranges: <140 mg/dL before meals <180 mg/dL all other times of the day Specimen Anatomical Collection Method Collection Time Receive d Time (Source) Location / / Volume Laterality Blood specimen 07/08/2017 4:52 AM 017 4:52 (specimen) EST AM EST Daphne Shahid MD POINT OF CARE TEST ORDERABLE S Performing Organization Address City/State/[place] [address] (ABNORMAL) BLOOD GAS 2 ARTERIAL (07/08/2017 4:04 AM EST) Analysis Performed At Patho logist Time Signature pH Art 7.30 (L) 7.35 - [facility] 7.45 [facility] pCO2 Art 41 35 - 45 [facility] mmHg [facility] pO2 Art 83 (L) 85 - 104 [facility] LABORATORY HCO3 Art 19.6 (L) 20.0 - [facility] 26.0 [facility] mmol/L [facility] BE Art -6.8 (L) -3.0 - 3.0 [facility] mmol/L [facility] Hgb Blood Gas 12.2 (L) 13.7 - [facility] 16.5 gm/dL [facility] O2HB Art 93.5 (L) 94.0 - [facility] 97.0 % [facility] COHB Art 0.4 % [...] [facility] Comment: Noted by instrumentation and control technician. FIO2 Art 40 % [facility] PF Ratio Art 208 [facility] LABORATORY Specimen Anatomical Collection Method Collection Time Receive d Time (Source) Location / / Volume Laterality Blood specimen 07/08/2017 4:04 AM 017 4:04 (specimen) EST AM EST Daphne Shahid MD CHEMISTRY ORDERABLES Performing Organization Address City/State/ZIP Code Phon e Number [address] Scan, Peripheral Blood (07/08/2017 [...] [facility] [place]/ZIP Code Phon e Number [address] (ABNORMAL) Differential, Automated (07/08/2017 4:00 AM EST) Patholo gist Method Time Signature Neutrophils % 85.4 % [facility] Neutr Abs (ANC) 16.07 (H) 1.70 - [facility] 6.10 [facility] x10(3)/[facility] L LABORATORY Lymphocytes % 3.5 % [facility] Lymphocytes Abs 0.6 (L) 0.9 - 3.2 [facility] x10(3)/[facility] LABORATORY Monocytes % 10.4 % [facility] Monocyte Abs 2.0 (H) 0.3 - 0.9 [facility] x10(3)/[facility] LABORATORY Eosinophils % 0.0 % [facility] Eosinophils Abs 0.0 0.0 - 0.4 [facility] x10(3)/[facility] LABORATORY Basophils % 0.1 % [facility] Basophils Abs 0.0 0.0 - 0.1 [facility] x10(3)/[facility] LABORATORY Immature Gran % 0.60 [...] Gran Abs 0.12 (H) 0.00 - 0.04 x10(3)/[facility] LABORATORY Specimen Anatomical Collection Method Collection Time Receive d Time (Source) Location / / Volume Laterality Blood specimen 07/08/2017 4:00 AM 017 4:09 (specimen) EST AM EST Resulting Agency Comment Spec In Lab Yuan Webber MD HEMATOLOGY ORDERABLES Performing Organization Address City/State/ZIP Code Phon e Number [place] [id number] (ABNORMAL) Hemogram (07/08/2017 4:00 AM EST) Analysis Performed At Patho logist Time Signature WBC 18.8 (H) 4.0 - 9.5 [facility] x10(3)/[facility] LABORATORY RBC 4.00 (L) 4.58 - [facility] 5.54 [facility] x10(6)/[facility] LABORATORY Hemoglobin 11.9 (L) 13.7 - [facility] 16.5 gm/dL [facility] Hematocrit 35.9 (L) 40.5 - [facility] SU 48.5 % [facility] MCV 89.8 82.9 - [facility] SU 93.1 [facility] LABORATORY MCH 29.8 27.5 - [place] SU 32.1 pg [facility] MCHC 33.1 32.0 - [facility] 35.[facility] gm/dL [facility] Platelets 232 145 - 357 [facility] x10(3)/[facility] LABORATORY RDWSD 47.6 (H) 36.0 - [facility] SU 45.0 [facility] RDWCV 14.5 (H) 11.4 - [facility] SU 13.8 % [facility] MPV 9.5 7.6 - 12.9 [facility] LABORATORY nRBC % Auto 0.0 % [facility] nRBC Abs Auto 0.000 0.000 - [facility] 0.000 [facility] x10(3)/[facility] LABORATORY Specimen Anatomical Collection Method Collection Time Receive d Time (Source) Location / / Volume Laterality Blood specimen 07/08/2017 4:00 AM 017 4:09 (specimen) EST AM EST Resulting Agency Comment Spec In Lab Yuan Webber MD HEMATOLOGY ORDERABLES Performing Organization Address City/[facility]/[place] [address] (ABNORMAL) Electrolytes panel (07/08/2017 4:00 AM EST) athologist Signature Sodium 139 135 - 145 [facility] mmol/L [facility] Potassium 4.7 3.5 - 5.0 [facility] mmol/L [facility] Comment: result rechecked-K Please note: ??Patients with WBC >100,00 0 [...] [facility] [place] [address] (ABNORMAL) Cardiac Enzymes (LEB/CGP) (07/08/2017 4:00 AM EST) P athologist Signature Troponin-T 1.88 (H) 0.00 - [facility] 0.00 ng/mL [facility] Comment: The 99th percentile for Troponin T is le ss than 0.01 ng/mL, any detectable cTnT concentration using this assay should be considered elevated. According to the third universal definit ion of myocardial infarction the following criteria with a clinical prese ntation consistent with acute myocardial ischemia meets the diagnosis for a myocardial infarction ([place]). Detection of a rise and/or fall of [...] additional sample may be indicated. Reference: Third [place] Definition of Myocardial Infarction. Journal of the [place] College [employer] 2012;60:1581-98 CK, Total 413 (H) 0 - 200 unit/L [facility] Comment: result rechecked-K Specimen Anatomical Collection Method Collection Time Receive d Time (Source) Location / / Volume Laterality Blood specimen 07/08/2017 4:00 AM 017 4:09 (specimen) EST AM EST Resulting Agency Comment Spec In Lab Yuan Webber MD CHEMISTRY ORDERABLES Performing Organization Address City/State/[place] [address] (ABNORMAL) Glucose, fasting (07/08/2017 4:00 AM EST) athologist Signature Glucose 287 (H) 65 - 99 [facility] Fasting mg/dL [facility] Comment: ?Fasting* Glucose Interpretive [...] of Diabetes Mellitus, Position Statement from the [place] [employer]. ??Diabete s Care, Volume 33, Supplement 1, Jul 2009 Specimen Anatomical Collection Method Collection Time Receive d Time (Source) Location / / Volume Laterality Blood specimen 07/08/2017 4:00 AM 017 4:09 (specimen) EST AM EST Resulting Agency Comment Spec In Lab Yuan Webber MD CHEMISTRY ORDERABLES Performing Organization Address [facility] [place] [address] (ABNORMAL) Creatinine (07/08/2017 4:00 AM EST) Analysis Performed At Patho logist Time Signature Creatinine 1.55 (H) 0.80 - [facility] 1.[facility] mg/dL [facility] Estimated GFR 44 (L) >=60 [facility] Comment: The reported eGFR should be multiplied b y 1.2 for patients. The MDRD is not an appropriate measure o f renal function for patients with body mass extremes or in patients with acute kidney failure. http://[employer]/DHnkdep http://[employer]/DHMCnkf Specimen Anatomical Collection Method Collection Time Receive d Time (Source) Location / / Volume Laterality Blood specimen 07/08/2017 4:00 AM 017 4:09 (specimen) EST AM EST Resulting Agency Comment Spec In Lab Yuan Webber MD CHEMISTRY ORDERABLES Performing Organization Address City/[facility]/ZIP Code Phon e Number [address] BUN (07/08/2017 4:00 AM EST) P athologist Signature BUN 16 10 - 20 [facility] mg/dL [facility] Specimen Anatomical Collection Method Collection Time Receive d Time (Source) Location / / Volume Laterality Blood specimen 07/08/2017 4:00 AM 017 4:09 (specimen) EST AM EST Resulting Agency Comment Spec In Lab Yuan Webber MD CHEMISTRY ORDERABLES Performing Organization Address City/[facility]/[place] [address] (ABNORMAL) POCT Glucose (07/08/2017 3:00 AM EST) P athologist Signature POC Glucose 273 (H) 65 - 199 [facility] mg/dL [facility] Comment: Supplemental ranges: <140 [...] [facility] [place] [address] (ABNORMAL) POCT Glucose (07/08/2017 1:57 AM EST) P athologist Signature POC Glucose 288 (H) 65 - 199 [facility] mg/dL [facility] Comment: Supplemental ranges: <140 mg/dL before meals <180 mg/dL all other times of the day Specimen Anatomical Collection Method Collection Time Receive d Time (Source) Location / / Volume Laterality Blood specimen 07/08/2017 1:57 AM 017 1:57 (specimen) EST AM EST Daphne Shahid MD POINT OF CARE TEST ORDERABLE S Performing Organization Address City/State/[place] [address] (ABNORMAL) POCT Glucose (07/08/2017 1:01 AM EST) P athologist Signature POC Glucose 315 (H) 65 - 199 [facility] mg/dL [facility] Comment: Supplemental ranges: <140 mg/dL before meals <180 mg/dL all other times of the day Specimen Anatomical Collection Method Collection Time Receive d Time (Source) Location / / Volume Laterality Blood specimen 07/08/2017 1:01 AM 017 1:01 (specimen) EST AM EST Daphne Shahid MD POINT OF CARE TEST ORDERABLE S Performing Organization Address City/State/[place] [address] (ABNORMAL) BLOOD GAS 2 ARTERIAL (07/08/2017 12:09 AM EST) athologist Signature pH Art 7.26 7.35 - [facility] (Critical) 7.45 [facility] Comment: Noted by instrumentation and control technician. pCO2 Art 41 35 - 45 mmHg [facility]ORY pO2 Art 96 85 - 104 mmHg [facility] HCO3 Art 17.7 (L) 20.0 - 26.0 mmol/L [facility] BE Art -9.4 (L) -3.0 - 3.0 mmol/L [facility] Hgb Blood Gas 12.4 (L) 13.7 - 16.5 gm/dL [facility] O2HB Art 94.7 94.0 - 97.0 % [facility] COHB Art 0.2 % [facility] Comment: Noted by instrumentation and control technician. FIO2 Art 40 % [facility] PF Ratio Art 240 [facility]ORY Specimen Anatomical Collection Method Collection Time Receive d Time (Source) Location / / Volume Laterality Blood specimen Arterial Draw / 07/08/2017 12:09 2016 5:31 (specimen) Unknown AM EST AM EST Resulting Agency Comment Spec In Lab Samy Maldonado MD CHEMISTRY ORDERABLES Performing Organization Address City/[facility]/[place] [address] (ABNORMAL) POCT Glucose (07/07/2017 10:56 PM EST) P athologist Signature POC Glucose 292 (H) 65 - 199 [facility] mg/dL [facility] Comment: Supplemental ranges: <140 mg/dL before meals <180 mg/dL all other times of the day Specimen Anatomical Collection Method Collection Time Receive d Time (Source) Location / / Volume Laterality Blood specimen 07/07/2017 10:56 7 (specimen) PM EST 10:56 PM EST Daphne Shahid MD POINT OF CARE TEST ORDERABLE S Performing Organization Address City/State/[place] [address] (ABNORMAL) BLOOD GAS 2 ARTERIAL (07/07/2017 10:04 PM EST) P athologist Signature pH Art 7.22 7.35 - [facility] (Critical) 7.45 [facility] Comment: Noted by instrumentation and control technician. pCO2 Art 42 35 - 45 mmHg [facility]ORY pO2 Art 94 85 - 104 mmHg [facility] HCO3 Art 16.9 (L) 20.0 - 26.0 mmol/L [facility] BE Art -10.7 (L) -3.0 - 3.0 mmol/L [facility] Hgb Blood Gas 13.0 (L) 13.7 - 16.5 gm/dL [facility] O2HB Art 93.8 (L) 94.0 - 97.0 % [facility] COHB Art 0.7 % [facility] Comment: Noted by instrumentation and control technician. FIO2 Art 40 % [facility] PF Ratio Art 235 [facility] Specimen Anatomical Collection Method Collection Time Receive d Time (Source) Location / / Volume Laterality Blood specimen 07/07/2017 10:04 7 (specimen) PM EST 10:04 PM EST Daphne Shahid MD CHEMISTRY ORDERABLES Performing Organization Address City/State/[place] [address] (ABNORMAL) Hemoglobin (07/07/2017 10:00 PM EST) athologist Signature Hemoglobin 12.8 (L) 13.7 - [place] 16.5 gm/dL [facility] Specimen Anatomical Collection Method Collection Time Receive d Time (Source) Location / / Volume Laterality Blood specimen 07/07/2017 10:00 7 (specimen) PM EST 10:13 PM EST Resulting Agency Comment Spec In Lab Yuan Webber MD HEMATOLOGY ORDERABLES Performing Organization Address City/[facility] [place] [address] (ABNORMAL) Potassium (07/07/2017 10:00 PM EST) athologist [facility] Potassium 3.4 (L) 3.5 - 5.0 [facility] mmol/L [facility] Comment: Please note: ??Patients [...] Webber MD CHEMISTRY ORDERABLES Performing Organization Address [facility] [place] [address] (ABNORMAL) POCT Glucose (07/07/2017 8:49 PM EST) athologist [facility] POC Glucose 241 (H) 65 - 199 [facility] mg/dL [facility] Comment: Supplemental ranges: <140 [...] [facility] [place]/ZIP Code Phon e Number [address] Prepare Albumin 5% in [...] [facility] [place]/ZIP Code Phon e Number [address] EKG 12 Lead (07/07/2017 7:17 PM EST) Component Value Ref Range Test Analysis Performed Pathologis t Method Time At Signature Ventricular rate 75 BPM MUSE SYSTEM Atrial Rate 75 BPM MUSE SYSTEM P-R Interval 168 ms MUSE SYSTEM QRS Duration 104 ms MUSE SYSTEM Q-T Interval 462 ms MUSE SYSTEM QTC Calculated 515 ms MUSE SYSTEM (Bezet) Calculated P [place] 52 degrees MUSE SYSTEM Calculated R [place] -40 degrees MUSE SYSTEM Calculated T [place] 39 degrees MUSE SYSTEM INTERPRETATION Normal sinus [...] Webber MD ECG ORDERABLES Performing Organization Address City/[facility]/ZIP Code Phon e Number MUSE SYSTEM XR [...] athologist Signature pH Art 7.21 7.35 - [facility] (Critical) 7.45 [facility] Comment: Noted by instrumentation and control technician. pCO2 Art 50 (H) 35 - 45 mmHg [facility]ORY pO2 Art 238 (H) 85 - 104 mmHg [facility] HCO3 Art 19.8 (L) 20.0 - 26.0 mmol/L [facility] BE Art -8.1 (L) -3.0 - 3.0 mmol/L [facility]ORY Hgb Blood Gas 12.8 (L) 13.7 - 16.5 gm/dL [facility] O2HB Art 97.5 (H) 94.0 - 97.0 % [facility] COHB Art 0.5 % [facility] Comment: Noted by instrumentation and [...] [facility] Comment: Noted by instrumentation and control technician. FIO2 Art 100 % [facility] PF Ratio Art 238 [facility] Specimen Anatomical Collection Method Collection Time Receive d Time (Source) Location / / Volume Laterality Blood specimen 07/07/2017 6:57 PM 017 6:57 (specimen) EST PM EST Daphne Shahid MD CHEMISTRY ORDERABLES Performing Organization Address City/State/[place] [address] (ABNORMAL) BLOOD GAS 2 ARTERIAL (07/07/2017 5:31 PM EST) athologist Signature pH Art 7.29 7.35 - [facility] (Critical) 7.45 [facility] Comment: Noted by instrumentation and control technician. pCO2 Art 48 (H) 35 - 45 mmHg [facility]ORY pO2 Art 137 (H) 85 - 104 mmHg [facility] HCO3 Art 22.4 20.0 - 26.0 mmol/L [facility] BE Art -4.3 (L) -3.0 - 3.0 mmol/L [facility] Hgb Blood Gas 10.0 (L) 13.7 - 16.5 gm/dL [facility] O2HB Art 97.3 (H) 94.0 - 97.0 % [facility] COHB Art 0.3 % [facility] [...] [facility] [place] [address] Fibrinogen (07/07/2017 5:30 PM EST) athologist Signature Fibrinogen 224 180 - 510 [facility] mg/dL [facility] Comment: Called by: JEET, [...] Performing Organization Address City/[facility] Code Phon e Number [address] APTT (07/07/2017 5:30 PM [...] Organization Address City/[facility]/ZIP [facility] [place] [address] (ABNORMAL) Prothrombin Time (07/07/2017 5:30 PM EST) athologist Signature PT 19.0 (H) 11.8 - 14.0 [facility] sec [facility] INR 1.6 (H) 0.9 - 1.1 [...] Organization Address City/State/[place] [address] (ABNORMAL) Hemogram (07/07/2017 5:30 PM EST) athologist Signature WBC 19.6 (H) 4.0 - 9.5 [facility] x10(3)/[facility] LABORATORY RBC 3.08 (L) 4.58 - [facility] 5.54 [facility] x10(6)/[facility] LABORATORY Hemoglobin 9.2 (L) 13.7 - [facility] 16.5 gm/dL [facility] Hematocrit 28.0 (L) 40.5 - [facility] 48.5 % [facility] Comment: This result has [...] Abs Auto 0.000 0.000 - 0.000 x10(3)/[facility] LABORATORY Specimen Anatomical Collection Method Collection Time Receive d Time (Source) Location / / Volume Laterality Blood specimen 07/07/2017 5:30 PM 017 5:34 (specimen) EST PM EST Resulting Agency Comment Spec In Lab Yifan Perez MD HEMATOLOGY ORDERABLES Performing Organization Address City/[facility] Phon e Number [address] Prepare Platelets, Apheresis (07/07/2017 5:00 PM EST) athologist Signature Dispensed? Yes [facility] Specimen Anatomical Collection Method Collection Time Receive d Time (Source) Location / / Volume Laterality Blood specimen 07/07/2017 5:00 PM 017 4:58 (specimen) EST PM EST Daphne Shahid MD BLOOD BANK ORDERABLES Performing Organization Address [facility] Phon e Number [address] Platelet count (07/07/2017 4:55 PM EST) athologist Signature Platelets 177 145 - 357 [facility] x10(3)/[facility] LABORATORY Plat Immature 1.5 0.0 - 7.4 [facility] Comment: Limitation of the Immature Platelet Frac tion (IPF)-May be less reliable when the platelet count is less than 91l928/u L due to statistical imprecision. The IPF [...] in a decreased state of production. References: [employer] The Clinical Value of the Immature Platelet Fraction (IPF) in Cell Recovery Document Number 10-1143 12/2010 [employer] The Role of the Imm ature [...] [facility]/[place] [address] (ABNORMAL) Hemoglobin and Hematocrit, blood (07/07/2017 4:55 PM EST) athologist Signature Hemoglobin 9.1 (L) 13.7 - 16.5 [facility] gm/dL [facility] Comment: This result has [...] [facility]/[place] [address] (ABNORMAL) BLOOD GAS 2 ARTERIAL (07/07/2017 4:38 PM EST) Analysis Performed At Patho logist Time Signature pH Art 7.37 7.35 - [facility] 7.45 [facility] pCO2 Art 44 35 - 45 [facility] mmHg [facility] pO2 Art 322 (H) 85 - 104 [facility] mmHg [facility] HCO3 Art 24.9 20.0 - [facility] 26.0 [facility] mmol/L [facility] BE Art -0.4 -3.0 - 3.0 [facility] mmol/L [facility] Hgb Blood Gas 10.1 (L) 13.7 - [facility] 16.5 gm/dL [facility] O2HB Art 98.7 (H) 94.0 - [facility] 97.0 % [facility] COHB Art 0.1 % [facility] [...] mmol/L [facility] Comment: Noted by instrumentation and [...] Organization Address City/State/[place] [address] (ABNORMAL) BLOOD GAS 2 VENOUS (07/07/2017 4:06 PM EST) Analysis Performed At Patho logist Time Signature pH Cody 7.31 (L) 7.32 - [facility] 7.42 [facility] pCO2 Cody 47 41 - 51 [facility] LABORATORY pO2 [place] 53 (H) 25 - 40 [facility] LABORATORY HCO3 [place] 22.7 mmol/L [facility] BE Cody -3.7 mmol/L [facility] Hgb Blood Gas 10.2 (L) 13.7 - [facility] 16.5 gm/dL [facility] O2HB [place] 81.0 % [facility] [...] mmol/L [facility] Comment: Noted by instrumentation and [...] [facility] BGas Source Venous [facility] Specimen Anatomical Collection Method Collection Time Receive d Time (Source) Location / / Volume Laterality Blood specimen 07/07/2017 4:06 PM 017 4:06 (specimen) EST PM EST Daphne Shahid MD CHEMISTRY ORDERABLES Performing Organization Address City/State/[place] [address] (ABNORMAL) BLOOD GAS 2 ARTERIAL (07/07/2017 4:05 PM EST) Analysis Performed At Patho logist Time Signature pH Art 7.36 7.35 - [facility] 7.45 [facility] pCO2 Art 40 35 - 45 [facility] LABORATORY pO2 Art 282 (H) 85 - 104 [facility] LABORATORY HCO3 Art 22.1 20.0 - [facility] 26.0 [facility] mmol/L [facility] BE Art -3.4 (L) -3.0 - 3.0 [facility] mmol/L [facility] Hgb Blood Gas 10.2 (L) 13.7 - [facility] 16.5 gm/dL [facility] O2HB Art 98.4 (H) 94.0 - [facility] 97.0 % [facility] COHB Art 0.3 % [...] mmol/L [facility] Comment: Noted by instrumentation and [...] Organization Address City/State/[place] [address] (ABNORMAL) BLOOD GAS 2 ARTERIAL (07/07/2017 2:29 PM EST) Analysis Performed At Patho logist Time Signature pH Art 7.43 7.35 - [facility] 7.45 [facility] pCO2 Art 36 35 - 45 [facility] mmHg [facility] pO2 Art 221 (H) 85 - 104 [facility] LABORATORY HCO3 Art 23.2 20.0 - [facility] 26.0 [facility] mmol/LDS HOSPITAL LABORATORY BE Art -1.2 -3.0 - 3.0 [facility] mmol/L [facility] Hgb Blood Gas 13.9 13.7 - [facility] 16.5 gm/dL [facility] O2HB Art 97.8 (H) 94.0 - [facility] 97.0 % [facility] COHB Art 1.1 % [facility] [...] Performing Organization Address City/[facility] [place] [address] Prepare Coag Factors (Non-Hemophilia) (07/07/2017 1:25 PM EST) P athologist Signature Dispensed? Yes [facility] Specimen Anatomical Collection Method Collection Time Receive d Time (Source) Location / / Volume Laterality Blood specimen 07/07/2017 1:25 PM 017 1:21 (specimen) EST PM EST Daphne Shahid MD BLOOD BANK ORDERABLES Performing Organization Address City/[facility]/[place] [address] Prepare RBC (07/07/2017 1:10 PM EST) P athologist Signature Dispensed? Yes [facility] Specimen Anatomical Collection Method Collection Time Receive d Time (Source) Location / / Volume Laterality Blood specimen 07/07/2017 1:10 PM 017 1:05 (specimen) EST PM EST Daphne Shahid MD BLOOD BANK ORDERABLES Performing Organization Address City/[facility]/[place] [address] POCT Glucose (07/07/2017 11:56 AM EST) athologist Signature POC Glucose 188 65 - 199 [place] mg/dL [facility] Comment: Supplemental ranges: <140 mg/dL before meals <180 mg/dL all other times of the day Specimen Anatomical Collection Method Collection Time Receive d Time (Source) Location / / Volume Laterality Blood specimen 07/07/2017 11:56 7 (specimen) AM EST 11:56 AM EST Daphne Shahid MD POINT OF CARE TEST ORDERABLE S Performing Organization Address City/State/ZIP Code Phon e Number [address] POCT Glucose (07/07/2017 11:05 AM EST) athologist Signature POC Glucose 168 65 - 199 [facility] SU mg/dL [facility] Comment: Supplemental ranges: <140 mg/dL before meals <180 mg/dL all other times of the day Specimen Anatomical Collection Method Collection Time Receive d Time (Source) Location / / Volume Laterality Blood specimen 07/07/2017 11:05 7 (specimen) AM EST 11:05 AM EST Daphne Shahid MD POINT OF CARE TEST ORDERABLE S Performing Organization Address City/State/ZIP Code Phon e Number [address] POCT Glucose (07/07/2017 10:02 AM EST) athologist Signature POC Glucose 191 65 - 199 [place] mg/dL [facility] Comment: Supplemental ranges: <140 mg/dL before meals <180 mg/dL all other times of the day Specimen Anatomical Collection Method Collection Time Receive d Time (Source) Location / / Volume Laterality Blood specimen 07/07/2017 10:02 7 (specimen) AM EST 10:02 AM EST Daphne Shahid MD POINT OF CARE TEST ORDERABLE S Performing Organization Address City/State/[place] [address] POCT Glucose (07/07/2017 7:53 AM EST) athologist Signature POC Glucose 178 65 - 199 [place] mg/dL [facility] Comment: Supplemental ranges: <140 mg/dL before meals <180 mg/dL all other times of the day Specimen Anatomical Collection Method Collection Time Receive d Time (Source) Location / / Volume Laterality Blood specimen 07/07/2017 7:53 AM 017 7:53 (specimen) EST AM EST Daphne Shahid MD POINT OF CARE TEST ORDERABLE S Performing Organization Address City/State/[place] [address] POCT Glucose (07/07/2017 7:03 AM EST) athologist Signature POC Glucose 188 65 - 199 [facility] SU mg/dL [facility] Comment: Supplemental ranges: <140 mg/dL before meals <180 mg/dL all other times of the day Specimen Anatomical Collection Method Collection Time Receive d Time (Source) Location / / Volume Laterality Blood specimen 07/07/2017 7:03 AM 017 7:03 (specimen) EST AM EST Daphne Shahid MD POINT OF CARE TEST ORDERABLE S Performing Organization Address City/State/[place] [address] (ABNORMAL) POCT Glucose (07/07/2017 6:17 AM EST) athologist Signature POC Glucose 207 (H) 65 - 199 [facility] Comment: Supplemental ranges: <140 mg/dL before meals <180 mg/dL all other times of the day Specimen Anatomical Collection Method Collection Time Receive d Time (Source) Location / / Volume Laterality Blood specimen 07/07/2017 6:17 AM 017 6:17 (specimen) EST AM EST Daphne Shahid MD POINT OF CARE TEST ORDERABLE S Performing Organization Address City/State/[place] [address] Differential, Automated (07/07/2017 5:15 AM EST) P athologist Signature Neutrophils % 69.7 % [facility] Neutr Abs (ANC) 5.32 1.70 - [facility] 6.10 [facility] x10(3)/[facility] LABORATORY Lymphocytes % 16.3 % [facility] Lymphocytes Abs 1.2 0.9 - 3.2 [facility] x10(3)/[facility] LABORATORY Monocytes % 10.5 % [facility] Monocyte Abs 0.8 0.3 - 0.9 [facility] x10(3)/[facility] LABORATORY Eosinophils % 2.5 % [facility] Eosinophils Abs 0.2 0.0 - 0.4 [facility] x10(3)/[facility] LABORATORY Basophils % 0.7 % [facility] Basophils Abs 0.0 0.0 - 0.1 [facility] x10(3)/[facility] LABORATORY Immature Gran % 0.30 % [...] Melisa Gran Abs 0.02 0.00 - 0.04 x10(3)/[facility] Specimen Anatomical Collection Method Collection Time Receive d Time (Source) Location / / Volume Laterality Blood specimen 07/07/2017 5:15 AM 017 5:34 (specimen) EST AM EST Resulting Agency Comment Spec In Lab Daphne Shahid MD HEMATOLOGY ORDERABLES Performing Organization Address City/State/[place] [address] (ABNORMAL) Hemogram (07/07/2017 5:15 AM EST) Analysis Performed At Patho logist Time Signature WBC 7.6 4.0 - 9.5 [facility] x10(3)/[facility] LABORATORY RBC 4.82 4.58 - [facility] 5.54 [facility] x10(6)/[facility] LABORATORY Hemoglobin 14.4 13.7 - [facility] 16.[facility] gm/dL [facility] Hematocrit 42.1 40.5 - [facility] 48.5 % [facility] MCV 87.3 82.9 - [facility] 93.1 [facility] LABORATORY MCH 29.9 27.5 - [place] 32.1 pg [facility] MCHC 34.2 32.0 - [facility] 35.7 gm/dL [facility] Platelets 188 145 - 357 [facility] x10(3)/[facility] LABORATORY RDWSD 45.1 (H) 36.0 - [facility] 45.0 [facility] LABORATORY RDWCV 14.3 (H) 11.4 - [facility] 13.8 % [facility] MPV 9.4 7.6 - 12.9 [facility] LABORATORY nRBC % Auto 0.0 % [facility] nRBC Abs Auto 0.000 0.000 - [facility] 0.000 [facility] x10(3)/[facility] LABORATORY Specimen Anatomical Collection Method Collection Time Receive d Time (Source) Location / / Volume Laterality Blood specimen 07/07/2017 5:15 AM 017 5:34 (specimen) EST AM EST Resulting Agency Comment Spec In Lab Daphne Shahid MD HEMATOLOGY ORDERABLES Performing Organization Address City/State/[place] [address] (ABNORMAL) APTT (07/07/2017 5:15 [...] Address City/State/ZIP Code Phon e Number [address] Magnesium (07/07/2017 5:15 AM EST) athologist Signature Magnesium 0.94 0.69 - 1.07 [facility] mmol/L [facility] Specimen Anatomical Collection Method Collection Time Receive d Time (Source) Location / / Volume Laterality Blood specimen 07/07/2017 5:15 AM 017 5:34 (specimen) EST AM EST Resulting Agency Comment Spec In Lab Daphne Shahid MD CHEMISTRY ORDERABLES Performing Organization Address City/[facility]/ZIP Code Phon e Number [address] (ABNORMAL) Basic Metabolic Panel (non-fasting) (07/07/2017 5:15 AM EST) athologist Signature Glucose Lvl 203 (H) 65 - 199 [facility] mg/dL [facility] Comment: Diabetes: >=200 mg/dL plus symp toms BUN 15 10 - 20 mg/dL [facility] Creatinine 1.09 0.80 - 1.50 mg/dL [facility] [...] [facility] Estimated GFR >60 >=60 [facility] Comment: The reported eGFR should be multiplied b y 1.2 for patients. The MDRD is not an appropriate measure o f renal function for patients with body mass extremes or in patients with acute kidney failure. http://New.net/DHnkdep http://New.net/DHMCnkf Specimen Anatomical Collection Method Collection Time Receive d Time (Source) Location / / Volume Laterality Blood specimen 07/07/2017 5:15 AM 017 5:34 (specimen) EST AM EST Resulting Agency Comment Spec In Lab Daphne Shahid MD CHEMISTRY ORDERABLES Performing Organization Address City/State/[place] [address] (ABNORMAL) Cardiac Enzymes (LEB/CGP) (07/07/2017 5:15 AM EST) P athologist Signature Troponin-T 2.07 (H) 0.00 - [facility] 0.[facility] ng/mL [facility] Comment: The 99th percentile for Troponin T is le ss than 0.01 ng/mL, any detectable cTnT concentration using this assay should be considered elevated. According to the third universal definit ion of myocardial infarction the following criteria with a clinical prese ntation consistent with acute myocardial ischemia meets the diagnosis for a myocardial infarction ([place]). Detection of a rise and/or fall of [...] additional sample may be indicated. Reference: Third [place] Definition of Myocardial Infarction. Journal of the [place] [employer] 2012;60:1581-98 CK, Total 88 0 - 200 unit/L [facility] Specimen Anatomical Collection Method Collection Time Receive d Time (Source) Location / / Volume Laterality Blood specimen 07/07/2017 5:15 AM 017 5:34 (specimen) EST AM EST Resulting Agency Comment Spec In Lab Daphne Shahid MD CHEMISTRY ORDERABLES Performing Organization Address City/State/ZIP Code Phon e Number [address] POCT Glucose (07/07/2017 5:01 AM EST) athologist Signature POC Glucose 182 65 - 199 [facility]dL [facility] Comment: Supplemental ranges: <140 mg/dL before meals <180 mg/dL all other times of the day Specimen Anatomical Collection Method Collection Time Receive d Time (Source) Location / / Volume Laterality Blood specimen 07/07/2017 5:01 AM 017 5:01 (specimen) EST AM EST Daphne Shahid MD POINT OF CARE TEST ORDERABLE S Performing Organization Address City/State/ZIP Code Phon e Number [address] POCT Glucose (07/07/2017 4:08 AM EST) athologist Signature POC Glucose 199 65 - 199 [facility] mg/dL [facility] Comment: Supplemental ranges: <140 mg/dL before meals <180 mg/dL all other times of the day Specimen Anatomical Collection Method Collection Time Receive d Time (Source) Location / / Volume Laterality Blood specimen 07/07/2017 4:08 AM 017 4:08 (specimen) EST AM EST Daphne Shahid MD POINT OF CARE TEST ORDERABLE S Performing Organization Address City/State/ZIP Code Phon e Number [address] POCT Glucose (07/07/2017 3:03 AM EST) athologist Signature POC Glucose 188 65 - 199 [facility] mg/dL [facility] Comment: Supplemental ranges: <140 mg/dL before meals <180 mg/dL all other times of the day Specimen Anatomical Collection Method Collection Time Receive d Time (Source) Location / / Volume Laterality Blood specimen 07/07/2017 3:03 AM 017 3:03 (specimen) EST AM EST Daphne Shahid MD POINT OF CARE TEST ORDERABLE S Performing Organization Address City/State/[place] [address] (ABNORMAL) POCT Glucose (07/07/2017 2:08 AM EST) P athologist Signature POC Glucose 200 (H) 65 - 199 [facility] mg/dL [facility] Comment: Supplemental ranges: <140 [...] [facility] [address] (ABNORMAL) POCT Glucose (07/07/2017 1:31 AM EST) P athologist Signature POC Glucose 209 (H) 65 - 199 [facility] mg/dL [facility] Comment: Supplemental ranges: <140 [...] [facility] [address] XR Chest PA or [...] Signature POC Glucose 161 65 - 199 [facility] mg/dL [facility] Comment: Supplemental ranges: <140 mg/dL before meals <180 mg/dL all other times of the day Specimen Anatomical Collection Method Collection Time Receive d Time (Source) Location / / Volume Laterality Blood specimen 07/07/2017 12:07 7 (specimen) AM EST 12:07 AM EST Daphne Shahid MD POINT OF CARE TEST ORDERABLE S Performing Organization Address City/State/[place] [address] (ABNORMAL) APTT (07/07/2017 12:00 [...] Address City/State/ZIP Code Phon e Number [address] POCT Glucose (07/06/2017 9:55 PM EST) athologist Signature POC Glucose 109 65 - 199 [place] mg/dL [facility] Comment: Supplemental ranges: <140 [...] [facility]/ZIP Code Phon e Number [address] POCT Glucose (07/06/2017 9:04 PM EST) athologist Signature POC Glucose 120 65 - 199 [place] mg/dL [facility] Comment: Supplemental ranges: <140 [...] [facility]/ZIP Code Phon e Number [address] POCT Glucose (07/06/2017 7:45 PM EST) athologist Signature POC Glucose 158 65 - 199 [place] mg/dL [facility] Comment: Supplemental ranges: <140 [...] [facility] [address] Potassium (07/06/2017 7:40 PM EST) athologist Signature Potassium 3.9 3.5 - 5.0 [facility] mmol/L [facility] Comment: Please note: ??Patients [...] [facility]/ZIP Code Phon e Number [address] (ABNORMAL) Cardiac Enzymes (LEB/CGP) (07/06/2017 7:40 PM EST) athologist Signature Troponin-T 2.27 (H) 0.00 - [facility] 0.00 ng/mL [facility] Comment: The 99th percentile for Troponin T is le ss than 0.01 ng/mL, any detectable cTnT concentration using this assay should be considered elevated. According to the third universal definit ion of myocardial infarction the following criteria with a clinical prese ntation consistent with acute myocardial ischemia meets the diagnosis for a myocardial infarction ([place]). Detection of a rise and/or fall of [...] additional sample may be indicated. Reference: Third [place] Definition of Myocardial Infarction. Journal of the [place] [employer] 2012;60:1581-98 CK, Total 93 0 - 200 unit/L [facility] Specimen Anatomical Collection Method Collection Time Receive d Time (Source) Location / / Volume Laterality Blood specimen 07/06/2017 7:40 PM 017 7:52 (specimen) EST PM EST Resulting Agency Comment Spec In Lab Daphne Shahid MD CHEMISTRY ORDERABLES Performing Organization Address City/[facility]/[place] [address] (ABNORMAL) POCT Glucose (07/06/2017 7:13 PM EST) P athologist Signature POC Glucose 200 (H) 65 - 199 [facility] mg/dL [facility] Comment: Supplemental ranges: <140 mg/dL before meals <180 mg/dL all other times of the day Specimen Anatomical Collection Method Collection Time Receive d Time (Source) Location / / Volume Laterality Blood specimen 07/06/2017 7:13 PM 017 7:13 (specimen) EST PM EST Daphne Shahid MD POINT OF CARE TEST ORDERABLE S Performing Organization Address City/State/[place] [address] (ABNORMAL) APTT (07/06/2017 6:15 [...] [facility] [address] (ABNORMAL) POCT Glucose (07/06/2017 6:03 PM EST) athologist Signature POC Glucose 236 (H) 65 - 199 [place] mg/dL [facility] Comment: Supplemental ranges: <140 [...] [facility] [address] (ABNORMAL) POCT Glucose (07/06/2017 5:01 PM EST) athologist Signature POC Glucose 235 (H) 65 - 199 [place] mg/dL [facility] Comment: Supplemental ranges: <140 [...] [facility] [address] (ABNORMAL) POCT Glucose (07/06/2017 4:06 PM EST) athologist Signature POC Glucose 202 (H) 65 - 199 [place] mg/dL [facility] Comment: Supplemental ranges: <140 mg/dL before meals <180 mg/dL all other times of the day Specimen Anatomical Collection Method Collection Time Receive d Time (Source) Location / / Volume Laterality Blood specimen 07/06/2017 4:06 PM 017 4:06 (specimen) EST PM EST Daphne Shahid MD POINT OF CARE TEST ORDERABLE S Performing Organization Address City/State/[place] [address] POCT Glucose (07/06/2017 2:59 PM EST) athologist Signature POC Glucose 178 65 - 199 [facility] Comment: Supplemental ranges: <140 mg/dL before meals <180 mg/dL all other times of the day Specimen Anatomical Collection Method Collection Time Receive d Time (Source) Location / / Volume Laterality Blood specimen 07/06/2017 2:59 PM 017 2:59 (specimen) EST PM EST Daphne Shahid MD POINT OF CARE TEST ORDERABLE S Performing Organization Address City/State/[place] [address] (ABNORMAL) Cardiac Enzymes (LEB/CGP) (07/06/2017 2:10 PM EST) athologist Signature Troponin-T 2.34 (H) 0.00 - [place] 0.00 ng/mL [facility] Comment: The 99th percentile for Troponin T is le ss than 0.01 ng/mL, any detectable cTnT concentration using this assay should be considered elevated. According to the third universal definit ion of myocardial infarction the following criteria with a clinical prese ntation consistent with acute myocardial ischemia meets the diagnosis for a myocardial infarction ([place]). Detection of a rise and/or fall of [...] additional sample may be indicated. Reference: [place] Definition of Myocardial Infarction. Journal of the [place] College [employer] 2012;60:1581-98 CK, Total 101 0 - 200 unit/L [facility] Specimen Anatomical Collection Method Collection Time Receive d Time (Source) Location / / Volume Laterality Blood specimen 07/06/2017 2:10 PM 017 2:26 (specimen) EST PM EST Resulting Agency Comment Spec In Lab Daphne Shahid MD CHEMISTRY ORDERABLES Performing Organization Address City/[facility]/ZIP [facility] Ph[place] Number [address] POCT Glucose (07/06/2017 2:08 PM EST) P athologist Signature POC Glucose 192 65 - 199 [facility] mg/dL [facility] Comment: Supplemental ranges: <140 [...] [facility] [address] POCT Glucose (07/06/2017 1:04 PM EST) P athologist Signature POC Glucose 162 65 - 199 [facility] Comment: Supplemental ranges: <140 mg/dL before meals <180 mg/dL all other times of the day Specimen Anatomical Collection Method Collection Time Receive d Time (Source) Location / / Volume Laterality Blood specimen 07/06/2017 1:04 PM 017 1:04 (specimen) EST PM EST Daphne Shahid MD POINT OF CARE TEST ORDERABLE S Performing Organization Address City/State/[place] [address] [facility] [address] POCT Glucose (07/06/2017 12:05 PM EST) P athologist Signature POC Glucose 196 65 - 199 [facility] mg/dL [facility] Comment: Supplemental ranges: <140 [...] [facility]/ZIP Code Phon e Number [address] EKG 12 Lead (07/06/2017 12:00 PM EST) Component Value Ref Range Test Analysis Performed Pathologis t Method Time At Signature Ventricular rate 91 BPM MUSE SYSTEM Atrial Rate 91 BPM MUSE SYSTEM P-R Interval 140 ms MUSE SYSTEM QRS Duration 94 ms MUSE SYSTEM Q-T Interval 394 ms MUSE SYSTEM QTC Calculated 484 ms MUSE SYSTEM (Bezet) Calculated P [place] 36 degrees MUSE SYSTEM Calculated R [place] -19 degrees MUSE SYSTEM Calculated T [place] 104 degrees MUSE SYSTEM INTERPRETATION Normal sinus rhythm MUSE SYSTEM 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) ST & T wave abnormality, consider lateral ischemia Abnormal ECG When compared with ECG of 05-JUL-2017 20:39, No significant change was found Confirmed by MD Luci, Taurus Braun ([id number]) on 07/06/2017 5:07:33 PM Specimen Anatomical Collection Method Collection Time Receive d Time (Source) Location / / Volume Laterality 07/06/2017 12:00 07/06/2017 5:07 PM EST PM EST Daphne Shahid MD ECG ORDERABLES Performing Organization Address City/[facility]/ZIP Code Phon e Number MUSE SYSTEM ABORH [...] [facility]/[place] [address] Antibody screen (07/06/2017 12:00 PM EST) Patholo gist Method Time Signature Ab Screen Negative [facility] LABORATORY Expires at 07/09/2017 [facility] [id number] on: [facility] Specimen Anatomical Collection Method Collection Time Receive d Time (Source) Location / / Volume Laterality Blood specimen 07/06/2017 12:00 7 (specimen) PM EST 12:24 PM EST Resulting Agency Comment Spec In Lab Daphne Shahid MD BLOOD BANK ORDERABLES Performing Organization Address City/[facility]/ZIP Code Phon e Number [address] ABO/Rh Typing (07/06/2017 12:00 [...] [facility]/[place] [address] Prothrombin Time (07/06/2017 11:24 [...] Resulting Agency Comment Spec In Lab Daphne Shhaid MD HEMATOLOGY ORDERABLES Performing Organization Address City/[facility]/ZIP Code Phon e Number [address] (ABNORMAL) APTT (07/06/2017 11:24 [...] [facility]/[place] [address] POCT Glucose (07/06/2017 11:02 AM EST) athologist Signature POC Glucose 187 65 - 199 [facility] mg/dL [facility] Comment: Supplemental ranges: <140 [...] [facility]/[place] [address] POCT Glucose (07/06/2017 10:18 AM EST) P athologist Signature POC Glucose 193 65 - 199 [place] mg/dL [facility] Comment: Supplemental ranges: <140 mg/dL before meals <180 mg/dL all other times of the day Specimen Anatomical Collection Method Collection Time Receive d Time (Source) Location / / Volume Laterality Blood specimen 07/06/2017 10:18 7 (specimen) AM EST 10:18 AM EST Daphne Shahid MD POINT OF CARE TEST ORDERABLE S Performing Organization Address City/State/[place] [address] POCT Glucose (07/06/2017 9:25 AM EST) athologist [employer] POC Glucose 182 65 - 199 [facility] mg/dL [facility] Comment: Supplemental ranges: <140 mg/dL before meals <180 mg/dL all other times of the day Specimen Anatomical Collection Method Collection Time Receive d Time (Source) Location / / Volume Laterality Blood specimen 07/06/2017 9:25 AM 017 9:25 (specimen) EST AM EST Daphne Shahid MD POINT OF CARE TEST ORDERABLE S Performing Organization Address City/State/[place] [address] (ABNORMAL) Cardiac Enzymes (LEB/CGP) (07/06/2017 8:10 AM EST) [facility] [employer] Troponin-T 2.26 (H) 0.00 - [facility] 0.00 ng/mL [facility] Comment: The 99th percentile for Troponin T is le ss than 0.01 ng/mL, any detectable cTnT concentration using this assay should be considered elevated. According to the third universal definit ion of myocardial infarction the following criteria with a clinical prese ntation consistent with acute myocardial ischemia meets the diagnosis for a myocardial infarction ([place]). Detection of a rise and/or fall of [...] additional sample may be indicated. Reference: [place] Definition of Myocardial Infarction. Journal of the [place] College of Cardiology 2012;60:1581-98 CK, Total 124 0 - 200 unit/L [facility] Specimen Anatomical Collection Method Collection Time Receive d Time (Source) Location / / Volume Laterality Blood specimen 07/06/2017 8:10 AM 017 8:23 (specimen) EST AM EST Resulting Agency Comment Spec In Lab Daphne Shahid MD CHEMISTRY ORDERABLES Performing Organization Address City/[facility]/[place] [address] Magnesium (07/06/2017 8:10 AM EST) P athologist Signature Magnesium 0.84 0.69 - 1.07 [facility] mmol/L [facility] Specimen Anatomical Collection Method Collection Time Receive d Time (Source) Location / / Volume Laterality Blood specimen 07/06/2017 8:10 AM 017 8:21 (specimen) EST AM EST Resulting Agency Comment Spec In Lab Daphne Shahid MD CHEMISTRY ORDERABLES Performing Organization Address City/[facility]/ZIP [facility] [place] [address] (ABNORMAL) Basic Metabolic Panel (non-fasting) (07/06/2017 8:10 AM EST) P athologist Signature Glucose Lvl 199 65 - 199 [facility] mg/dL [facility] Comment: Diabetes: >=200 mg/dL plus symp toms BUN 16 10 - 20 mg/dL [facility] Creatinine 1.04 0.80 - 1.50 mg/dL [facility] [...] [facility] LAB[facility]ORY Estimated GFR >60 >=60 [facility] Comment: The reported eGFR should be multiplied b y 1.2 for patients. The MDRD is not an appropriate measure o f renal function for patients with body mass extremes or in patients with acute kidney failure. http://New.net/DHnkdep http://New.net/DHnkf Specimen Anatomical Collection Method Collection Time Receive d Time (Source) Location / / Volume Laterality Blood specimen 07/06/2017 8:10 AM 017 8:21 (specimen) EST AM EST Resulting Agency Comment Spec In Lab Daphne Shahid MD CHEMISTRY ORDERABLES Performing Organization Address City/[facility]/[place] [address] POCT Glucose (07/06/2017 7:34 AM EST) P athologist Signature POC Glucose 198 65 - 199 [facility] mg/dL [facility] Comment: Supplemental ranges: <140 [...] [facility]/[place] [address] POCT Glucose (07/06/2017 7:03 AM EST) P athologist Signature POC Glucose 181 65 - 199 [place] mg/dL [facility] Comment: Supplemental ranges: <140 mg/dL before meals <180 mg/dL all other times of the day Specimen Anatomical Collection Method Collection Time Receive d Time (Source) Location / / Volume Laterality Blood specimen 07/06/2017 7:03 AM 017 7:03 (specimen) EST AM EST aDphne Shahid MD POINT OF CARE TEST ORDERABLE S Performing Organization Address City/State/ZIP Code Phon e Number [facility] [address] XR Chest PA or [...] Glucose 172 65 - 199 [facility] mg/dL [facility] Comment: Supplemental ranges: <140 mg/dL before meals <180 mg/dL all other times of the day Specimen Anatomical Collection Method Collection Time Receive d Time (Source) Location / / Volume Laterality Blood specimen 07/06/2017 6:21 AM 017 6:21 (specimen) EST AM EST Daphne Shahid MD POINT OF CARE TEST ORDERABLE S Performing Organization Address City/State/[place] [address] POCT Glucose (07/06/2017 5:08 AM EST) athologist Signature POC Glucose 154 65 - 199 [facility] Comment: Supplemental ranges: <140 mg/dL before meals <180 mg/dL all other times of the day Specimen Anatomical Collection Method Collection Time Receive d Time (Source) Location / / Volume Laterality Blood specimen 07/06/2017 5:08 AM 017 5:08 (specimen) EST AM EST Daphne Shahid MD POINT OF CARE TEST ORDERABLE S Performing Organization Address City/State/[place] [address] POCT Glucose (07/06/2017 4:05 AM EST) athologist Signature POC Glucose 142 65 - 199 [facility] mg/dL [facility] Comment: Supplemental ranges: <140 mg/dL before meals <180 mg/dL all other times of the day Specimen Anatomical Collection Method Collection Time Receive d Time (Source) Location / / Volume Laterality Blood specimen 07/06/2017 4:05 AM 017 4:05 (specimen) EST AM EST Daphne Shahid MD POINT OF CARE TEST ORDERABLE S Performing Organization Address City/State/ZIP Code Phon e Number [address] POCT Glucose (07/06/2017 3:00 AM EST) athologist Signature POC Glucose 116 65 - 199 [facility] mg/dL [facility] Comment: Supplemental ranges: <140 [...] [facility]/ZIP Code Phon e Number [address] Potassium (07/06/2017 2:20 AM EST) athologist [facility] Potassium 3.9 3.5 - 5.0 [facility] mmol/L [facility] Comment: Please note: ??Patients [...] [facility]/ZIP Code Phon e Number [address] Differential, Automated (07/06/2017 2:20 AM EST) athologist Signature Neutrophils % 72.9 % [facility] Neutr Abs (ANC) 5.53 1.70 - [facility] 6.10 [facility] x10(3)/[facility] LABORATORY Lymphocytes % 16.4 % [facility] Lymphocytes Abs 1.2 0.9 - 3.2 [facility] x10(3)/[facility] LABORATORY Monocytes % 9.4 % [facility] Monocyte Abs 0.7 0.3 - 0.9 [facility] x10(3)/[facility] LABORATORY Eosinophils % 0.5 % [facility] Eosinophils Abs 0.0 0.0 - 0.4 [facility] x10(3)/[facility] LABORATORY Basophils % 0.4 % [facility] Basophils Abs 0.0 0.0 - 0.1 [facility] x10(3)/[facility] LABORATORY Immature Gran % 0.40 % [...] Melisa Gran Abs 0.03 0.00 - 0.04 x10(3)/[facility] MAR Y [facility] LABORATORY Specimen Anatomical Collection Method Collection Time Receive d Time (Source) Location / / Volume Laterality Blood specimen 07/06/2017 2:20 AM 017 2:33 (specimen) EST AM EST Resulting Agency Comment Spec In Lab Daphne Shahid MD HEMATOLOGY ORDERABLES Performing Organization Address City/State/[place] [address] (ABNORMAL) Hemogram (07/06/2017 2:20 AM EST) Analysis Performed At Patho logist Time Signature WBC 7.6 4.0 - 9.5 [facility] x10(3)/[facility] LABORATORY RBC 4.52 (L) 4.58 - [facility] 5.54 [facility] x10(6)/[facility] LABORATORY Hemoglobin 13.4 (L) 13.7 - [place] 16.5 gm/dL [facility] Hematocrit 39.7 (L) 40.5 - [facility] 48.5 % [facility] MCV 87.8 82.9 - [facility] 93.1 [facility] LABORATORY MCH 29.6 27.5 - [place] 32.1 pg [facility] MCHC 33.8 32.0 - [place] 35.7 gm/dL [facility] Platelets 189 145 - 357 [facility] x10(3)/[facility] LABORATORY RDWSD 45.6 (H) 36.0 - [facility] 45.0 [facility] LABORATORY RDWCV 14.3 (H) 11.4 - [facility] 13.8 % [facility] MPV 9.1 7.6 - 12.9 [facility] LABORATORY nRBC % Auto 0.0 % [facility] nRBC Abs Auto 0.000 0.000 - [facility] 0.000 [facility] x10(3)/[facility] LABORATORY Specimen Anatomical Collection Method Collection Time Receive d Time (Source) Location / / Volume Laterality Blood specimen 07/06/2017 2:20 AM 017 2:33 (specimen) EST AM EST Resulting Agency Comment Spec In Lab Daphne Shahid MD HEMATOLOGY ORDERABLES Performing Organization Address City/State/[place] [address] (ABNORMAL) APTT (07/06/2017 2:20 [...] Address City/State/ZIP Code Phon e Number [address] POCT Glucose (07/06/2017 2:20 AM EST) athologist Signature POC Glucose 115 65 - 199 [facility] mg/dL [facility] Comment: Supplemental ranges: <140 [...] [facility]/[place] [address] (ABNORMAL) Cardiac Enzymes (LEB/CGP) (07/06/2017 2:20 AM EST) athologist Signature Troponin-T 2.13 (H) 0.00 - [place] 0.00 ng/mL [facility] Comment: The 99th percentile for Troponin T is le ss than 0.01 ng/mL, any detectable cTnT concentration using this assay should be considered elevated. According to the third universal definit ion of myocardial infarction the following criteria with a clinical prese ntation consistent with acute myocardial ischemia meets the diagnosis for a myocardial infarction ([place]). Detection of a rise and/or fall of [...] additional sample may be indicated. Reference: [place] Definition of Myocardial Infarction. Journal of the [place] College [employer]iology 2012;60:1581-98 CK, Total 129 0 - 200 unit/L [facility] Specimen Anatomical Collection Method Collection Time Receive d Time (Source) Location / / Volume Laterality Blood specimen 07/06/2017 2:20 AM 017 2:33 (specimen) EST AM EST Resulting Agency Comment Spec In Lab Daphne Shahid MD CHEMISTRY ORDERABLES Performing Organization Address City/State/[place] [address] (ABNORMAL) Hemoglobin A1c (07/06/2017 2:20 AM EST) Analysis Performed At Patho logist Time Signature Hemoglobin A1C 6.8 (H) 4.3 - 5.6 [facility] LAB[facility]ORY Comment: Reference Range: 4.3 [...] S67-74 Est Avg Gluc See note mg/dL [facility] [...] with hemoglobinopathies. Additional resources are available on [facility] website. Macario HAMMOND, Ruthann J, Deysi R, et al. ??Tr anslating the A1C assay into estimated average glucose values. ??Diabetes Care 2008:31(8):3663-9410. Specimen Anatomical Collection Method Collection Time Receive d Time (Source) Location / / Volume Laterality Blood specimen 07/06/2017 2:20 AM 017 2:34 (specimen) EST AM EST Resulting Agency Comment Spec In Lab Daphne Shahid MD CHEMISTRY ORDERABLES Performing Organization Address City/State/[place] [address] (ABNORMAL) Lipid Panel (07/06/2017 2:20 AM EST) [facility] Method Time Signature Chol, Total 150 <=239 [place] mg/dL [facility] LABORATORY Triglycerides 129 <=199 [facility] mg/dL [facility] LABORATORY HDL 32 (L) >=40 [facility] mg/dL [facility] LABORATORY LDL Cholesterol 92 <=190 [facility] mg/dL [facility] LABORATORY Chol/HDL Ratio 4.7 ratio [facility] Lipid See Note [place] Interpretation [facility] Comment: Lipid management should be guided by a p atient? s ASCVD risk, goals and preferences. ACC/AHA Guidelines recommend high intens ity statin if clinical ASCVD or LDL greater than or equal to 190 mg/dL. http://Fliteurl.com/LLO-HUU-Wdzdzfycm Adults aged 40-75 with LDL 70-189 mg/dL should have their 10 year ASCVD risk estimated with the ACC/AHA ASCVD risk es timator http://tools.acc.org/LSIYE-Bzdb-Bgwgontq r/ Statin should be discussed if risk [...] Address City/State/ZIP Code Phon e Number [address] POCT Glucose (07/06/2017 1:09 AM EST) athologist Signature POC Glucose 121 65 - 199 [facility] mg/dL [facility] Comment: Supplemental ranges: <140 [...] [facility]/[place] [address] POCT Glucose (07/06/2017 12:06 AM EST) athologist Signature POC Glucose 147 65 - 199 [facility] mg/dL [facility] Comment: Supplemental ranges: <140 mg/dL before meals <180 mg/dL all other times of the day Specimen Anatomical Collection Method Collection Time Receive d Time (Source) Location / / Volume Laterality Blood specimen 07/06/2017 12:06 7 (specimen) AM EST 12:06 AM EST Daphne Shahid MD POINT OF CARE TEST ORDERABLE S Performing Organization Address City/State/[place] [address] (ABNORMAL) POCT Glucose (07/05/2017 10:56 PM EST) athologist Signature POC Glucose 200 (H) 65 - 199 [facility] mg/dL [facility] Comment: Supplemental ranges: <140 mg/dL before meals <180 mg/dL all other times of the day Specimen Anatomical Collection Method Collection Time Receive d Time (Source) Location / / Volume Laterality Blood specimen 07/05/2017 10:56 7 (specimen) PM EST 10:56 PM EST Daphne Shahid MD POINT OF CARE TEST ORDERABLE S Performing Organization Address City/State/[place] [address] (ABNORMAL) POCT Glucose (07/05/2017 10:05 PM EST) athologist Signature POC Glucose 225 (H) 65 - 199 [facility] mg/dL [facility] Comment: Supplemental ranges: <140 mg/dL before meals <180 mg/dL all other times of the day Specimen Anatomical Collection Method Collection Time Receive d Time (Source) Location / / Volume Laterality Blood specimen 07/05/2017 10:05 7 (specimen) PM EST 10:05 PM EST Daphne Shahid MD POINT OF CARE TEST ORDERABLE S Performing Organization Address City/State/[place] [address] (ABNORMAL) POCT Glucose (07/05/2017 9:02 PM EST) athologist Signature POC Glucose 301 (H) 65 - 199 [place] mg/dL [facility] Comment: Supplemental ranges: <140 mg/dL before meals <180 mg/dL all other times of the day Specimen Anatomical Collection Method Collection Time Receive d Time (Source) Location / / Volume Laterality Blood specimen 07/05/2017 9:02 PM 017 9:02 (specimen) EST PM EST Daphne Shahid MD POINT OF CARE TEST ORDERABLE S Performing Organization Address City/State/[place] [address] XR Chest PA or [...] 474 ms MUSE SYSTEM (Bezet) Calculated P [place] 50 degrees MUSE SYSTEM Calculated R [place] -28 degrees MUSE SYSTEM Calculated T [place] 90 degrees MUSE SYSTEM INTERPRETATION Sinus tachycardia MUSE SY STEM Cannot rule out Anteroseptal infarct (cited on or before Jun-2017) T wave abnormality, consider lateral ischemia Abnormal ECG When compared with ECG of 05-JUL-2017 16:32, No significant change was found Confirmed by MD MARINA BRUCE ([id number]) on 07/06/2017 8:44:58 AM Specimen Anatomical Collection Method Collection Time Receive d Time (Source) Location / / Volume Laterality 07/05/2017 8:39 PM 7 8:44 EST AM EST Daphne Shahid MD ECG ORDERABLES Performing Organization Address City/State/ZIP Code Phon e Number MUSE SYSTEM (ABNORMAL) Differential, Automated (07/05/2017 8:20 PM EST) [facility] gist Method Time Signature Neutrophils % 88.4 % [facility] Neutr Abs (ANC) 9.08 (H) 1.70 - [facility] 6.10 [facility] x10(3)/[facility] LABORATORY Lymphocytes % 7.0 % [facility] Lymphocytes Abs 0.7 (L) 0.9 - 3.2 [facility] x10(3)/[facility] LABORATORY Monocytes % 3.7 % [facility] Monocyte Abs 0.4 0.3 - 0.9 [facility] x10(3)/[facility] LABORATORY Eosinophils % 0.1 % [facility] Eosinophils Abs 0.0 0.0 - 0.4 [facility] x10(3)/[facility] LABORATORY Basophils % 0.2 % [facility] Basophils Abs 0.0 0.0 - 0.1 [facility] x10(3)/[facility] LABORATORY Immature Gran % 0.60 [...] Gran Abs 0.06 (H) 0.00 - 0.04 x10(3)/[facility] LABORATORY Specimen Anatomical Collection Method Collection Time Receive d Time (Source) Location / / Volume Laterality Blood specimen 07/05/2017 8:20 PM 017 8:27 (specimen) EST PM EST Resulting Agency Comment Spec In Lab Daphne Shahid MD HEMATOLOGY ORDERABLES Performing Organization Address City/State/[place] [address] (ABNORMAL) Hemogram (07/05/2017 8:20 PM EST) Analysis Performed At Patho logist Time Signature WBC 10.3 (H) 4.0 - 9.5 [facility] x[facility](3[facility] LABORATORY RBC 4.64 4.58 - [place] SU 5.54 [facility] x10(6)/[facility] LABORATORY Hemoglobin 14.1 13.7 - [facility] 16.[facility] gm/dL [facility] LABORATORY Hematocrit 40.8 40.5 - [facility] 48.5 % [facility] LABORATORY MCV 87.9 82.9 - [facility] SU 93.1 [facility] LABORATORY MCH 30.4 27.5 - [place] SU 32.1 pg [facility] LABORATORY MCHC 34.6 32.0 - [facility] SU 35.7 gm/dL [facility] LABORATORY Platelets 204 145 - 357 [facility] x10(3)/[facility] LABORATORY RDWSD 46.1 (H) 36.0 - [facility]0 [facility] LABORATORY RDWCV 14.5 (H) 11.4 - [facility] SU 13.8 % [facility] LABORATORY MPV 9.7 7.6 - 12.9 [facility] LABORATORY nRBC % Auto 0.0 % [facility] LABORATORY nRBC Abs Auto 0.000 0.000 - [facility] SU 0.000 [facility] x10(3)/[facility] LABORATORY Specimen Anatomical Collection Method Collection Time Receive d Time (Source) Location / / Volume Laterality Blood specimen 07/05/2017 8:20 PM 017 8:27 (specimen) EST PM EST Resulting Agency Comment Spec In Lab Daphne Shahid MD HEMATOLOGY ORDERABLES Performing Organization Address City/State/ZIP Code Phon e Number [place] [address] APTT (07/05/2017 8:20 PM [...] Organization Address City/State/[place] [address] (ABNORMAL) Cardiac Enzymes (LEB/CGP) (07/05/2017 8:20 PM EST) athologist Signature Troponin-T 2.11 (H) 0.00 - [facility] 0.00 ng/mL [facility] LABORATORY Comment: The 99th percentile for Troponin T is le ss than 0.01 ng/mL, any detectable cTnT concentration using this assay should be considered elevated. According to the third universal definit ion of myocardial infarction the following criteria with a clinical prese ntation consistent with acute myocardial ischemia meets the diagnosis for a myocardial infarction ([place]). Detection of a rise and/or fall of [...] additional sample may be indicated. Reference: Third [place] Definition of Myocardial Infarction. Journal of the [place] College of [employer]iology 2012;60:1581-98 CK, Total 149 0 - 200 unit/L [facility] LABORATORY Specimen Anatomical Collection Method Collection Time Receive d Time (Source) Location / / Volume Laterality Blood specimen 07/05/2017 8:20 PM 017 8:27 (specimen) EST PM EST Resulting Agency Comment Spec In Lab Daphne Shahid MD CHEMISTRY ORDERABLES Performing Organization Address City/[facility]/ZIP Code Phon e Number [address] (ABNORMAL) Magnesium (07/05/2017 8:20 PM EST) P athologist Signature Magnesium 0.68 (L) 0.69 - 1.07 [facility] mmol/L [facility] LABORATORY Specimen Anatomical Collection Method Collection Time Receive d Time (Source) Location / / Volume Laterality Blood specimen 07/05/2017 8:20 PM 017 8:27 (specimen) EST PM EST Resulting Agency Comment Spec In Lab Daphne Shahid MD CHEMISTRY ORDERABLES Performing Organization Address City/[facility]/[place] [address] (ABNORMAL) Basic Metabolic Panel (non-fasting) (07/05/2017 8:20 PM EST) P athologist Signature Glucose Lvl 321 (H) 65 - 199 [facility] mg/dL [facility] LABORATORY Comment: Diabetes: >=200 mg/dL plus symp toms BUN 20 10 - 20 mg/dL [facility] LABORATORY Creatinine 1.12 0.80 - 1.50 mg/dL [facility] LABORATORY Sodium 139 135 - [...] [facility]ICAL [facility]ENTER LABORATORY Estimated GFR >60 >=60 [facility] LABORATORY Comment: The reported eGFR should be multiplied b y 1.2 for patients. The MDRD is not an appropriate measure o f renal function for patients with body mass extremes or in patients with acute kidney failure. http://New.net/DHnkdep http://New.net/DHMCnkf Specimen Anatomical Collection Method Collection Time Receive d Time (Source) Location / / Volume Laterality Blood specimen 07/05/2017 8:20 PM 017 8:27 (specimen) EST PM EST Resulting Agency Comment Spec In Lab Daphne Shahid MD CHEMISTRY ORDERABLES Performing Organization Address City/State/[place] [address] (ABNORMAL) POCT Glucose (07/05/2017 7:32 PM EST) P athologist Signature POC Glucose 296 (H) 65 - 199 [facility] mg/dL [facility] LABORATORY Comment: Supplemental ranges: <140 mg/dL before meals <180 mg/dL all other times of the day Specimen Anatomical Collection Method Collection Time Receive d Time (Source) Location / / Volume Laterality Blood specimen 07/05/2017 7:32 PM 017 7:32 (specimen) EST PM EST Daphne Shahid MD POINT OF CARE TEST ORDERABLE S Performing Organization Address City/State/[place] [address] CARDIAC CATHETERIZATION (07/05/2017 6:47 PM EST) Anatomical Region Laterality Modality Other Specimen (Source) Anatomical Location Collection Method / Collectio n Time Received Time / Laterality Volume Narrative 07/05/2017 7:27 PM EST ?[facility] ? Cardiac Cathete rization/Intervention Report ? Patient Name: Gregory Hoang ? Procedure Date: 07/05/2017 ? A #: [id number] ? Primary Physician: Clarisa, Jet T ? Case #: [id number] ? File Name: [id number] ? Catheterization Order Number: [id number] ? [facility] ? Final Report [place], [place] ? Patient Name: ? Gregory Natalya ?ID#: ?[id number] ? : ?1945 ? Procedure Date: ? [...] non -STEMI (w/i 7 days). Citizen Of [place] ?Cardiovascular Society angina c lass was IV. [...] might be different from the original. [facility] Cardiac Catheterization/Intervention Re port Patient Name: Gregory Hoang Procedure Date: 07/05/2017 A #: [id number] Primary Physician: Jet Mckenna Case #: [id number] File Name: [id number] Catheterization Order Number: [id number] [facility] Final Report [place], [place] Patient Name: Gregory Hoang ID#: [id number] : 1945 Procedure Date: July 05, [...] non-STEMI ( w/i 7 days). Citizen Of [place] Cardiovascular Society angina class was IV. No [...] 10:29 Daphne Shahid MD CARDIAC CATH ORDERABLES ECHOCARDIOGRAM COMPLETE W CONTRAST (07/05/2017 6:21 PM EST) P athologist Signature EF 29 [facility] Anatomical Region Laterality Modality Other Specimen (Source) Anatomical Location Collection Method / Collectio n Time Received Time / Laterality Volume 07/06/2017 Narrative 07/06/2017 8:53 AM EST Procedure: ?Transthoracic Echocardiogram Patient: ?NATALYA Mccollum ? (Age): 1945(72y) Med Rec#: ? [id number] ?Sex: ?M ? Site Loc: ? [facility] ?Ht / Wt: ??173(cm)/86(kg) Pt. Loc: ?CCU ? BSA: ?2 Study Date: ?? 07/05/2017 ?Pt. Type: Inpatient Tape: ? Referring: Daphne Shahid ([id number]) Referring: MANDA ALCANTAR Reading: Blade Preston ([id number]) Sliver Handler: Dayami Paula BA, [facility] Diagnosis: *ICD-10-PCS Non-ST elevation [...] E-wave Vmax ?0.8 ?m/sec ? MV deceleration [id number] ?msec ? MV A-wave Vmax ?0.8 ?m/sec [...] ? Mid-Inferior ?Akinetic ? Mid-Inferoseptal ?Hypokinetic ? [place]-Septal ? Akinetic ? [place]-Anterior ? Hypokinetic ? [place]-Lateral ?Hypokinetic ? [place]-Inferior ? Akinetic ? [place]-Tip ?Akinetic ? This report has been electronically sign ed by: _ Blade Preston MD ? 07/06/2017 08 :53:15 Images reviewed and interpretation [facility] Cardiac Ultrasound Laboratory Procedure Note Blade Preston MD - 07/06/2017Formatt ing of this note might be different from the original. Procedure: Transthoracic Echocardiogram Patient: NATALYA MCBRIDE(Age): [birth year]72y) Med Rec#: [id number] Sex: M Site Loc: [facility] Ht / Wt: 173(cm)/86(kg) Pt. Loc: CCU BSA: 2 Study Date: 07/05/2017 Pt. Type: Inpatie nt Tape: Referring: Daphne Shahid ([id number]) Referring: MANDA ALCANTAR Reading: Blade Preston ([id number]) Sliver Handler: Dayami Paula BA, [facility] Diagnosis: *ICD-10-PCS Non-ST elevation [...] MV E-wave Vmax 0.8 m/sec MV deceleration [id number] msec MV A-wave Vmax 0.8 m/sec MV [...] Hypokinetic Mid-Posterolateral Hypokinetic Mid-Inferior Akinetic Mid-Inferoseptal Hypokinetic [place]-Septal Akinetic [place]-Anterior Hypokinetic [place]-Lateral Hypokinetic [place]-Inferior Akinetic [place]-Tip Akinetic This report has been electronically sign ed by: _ Blade Preston MD 07/06/2017 08:53:15 Images reviewed and interpretation ver ied [facility] Cardiac Ultrasound Laboratory Daphne Shahid MD ECHO ORDERABLES Differential, Automated (07/05/2017 4:55 PM EST) athologist Signature Neutrophils % 77.0 % [facility] LABORATORY Neutr Abs (ANC) 5.26 1.70 - [facility] 6.10 [facility] x10(3)/[facility] LABORATORY Lymphocytes % 13.3 % [facility] LABORATORY Lymphocytes Abs 0.9 0.9 - 3.2 [facility] x10(3)/[facility] LABORATORY Monocytes % 8.2 % [facility] LABORATORY Monocyte Abs 0.6 0.3 - 0.9 [facility] x10(3)/[facility] LABORATORY Eosinophils % 0.7 % [facility] LABORATORY Eosinophils Abs 0.0 0.0 - 0.4 [facility] x10(3)/[facility] LABORATORY Basophils % 0.4 % [facility] LABORATORY Basophils Abs 0.0 0.0 - 0.1 [facility] x10(3)/[facility] LABORATORY Immature Gran % 0.40 % [...] Melisa Gran Abs 0.03 0.00 - 0.04 x10(3)/[facility] LABORATORY Specimen Anatomical Collection Method Collection Time Receive d Time (Source) Location / / Volume Laterality Blood specimen 07/05/2017 4:55 PM 017 5:24 (specimen) EST PM EST Resulting Agency Comment Spec In Lab Daphne Shahid MD HEMATOLOGY ORDERABLES Performing Organization Address City/State/[place] [address] (ABNORMAL) Hemogram (07/05/2017 4:55 PM EST) Analysis Performed At Patho logist Time Signature WBC 6.8 4.0 - 9.5 [facility] x10(3)/[facility] LABORATORY RBC 4.67 4.58 - [facility] 5.54 [facility] x10(6)/[facility] LABORATORY Hemoglobin 14.0 13.7 - [place] 16.5 gm/dL [facility] LABORATORY Hematocrit 41.0 40.5 - [place] 48.5 % [facility] LABORATORY MCV 87.8 82.9 - [facility] 93.1 [facility] LABORATORY MCH 30.0 27.5 - [place] 32.1 pg [facility] LABORATORY MCHC 34.1 32.0 - [place] 35.7 gm/dL [facility] LABORATORY Platelets 197 145 - 357 [facility] x10(3)/[facility] LABORATORY RDWSD 46.4 (H) 36.0 - [place] 45.0 [facility] LABORATORY RDWCV 14.5 (H) 11.4 - [place] SU 13.8 % [facility] LABORATORY MPV 9.7 7.6 - 12.9 [facility] LABORATORY nRBC % Auto 0.0 % [facility] LABORATORY nRBC Abs Auto 0.000 0.000 - [place] SU 0.000 [facility] x10(3)/[facility] LABORATORY Specimen Anatomical Collection Method Collection Time Receive d Time (Source) Location / / Volume Laterality Blood specimen 07/05/2017 4:55 PM 017 5:24 (specimen) EST PM EST Resulting Agency Comment Spec In Lab Daphne Shahid MD HEMATOLOGY ORDERABLES Performing Organization Address City/State/[place] [address] (ABNORMAL) Cardiac Enzymes (LEB/CGP) (07/05/2017 4:55 PM EST) P athologist Signature Troponin-T 1.69 (H) 0.00 - [place] 0.00 ng/mL [facility] LABORATORY Comment: The 99th percentile for Troponin T is le ss than 0.01 ng/mL, any detectable cTnT concentration using this assay should be considered elevated. According to the third universal definit ion of myocardial infarction the following criteria with a clinical prese ntation consistent with acute myocardial ischemia meets the diagnosis for a myocardial infarction ([place]). Detection of a rise and/or fall of [...] additional sample may be indicated. Reference: Third [place] Definition of Myocardial Infarction. Journal of the [place] College of Cardiology 2012;60:1581-98 CK, Total 191 0 - 200 unit/L [facility] LABORATORY Specimen Anatomical Collection Method Collection Time Receive d Time (Source) Location / / Volume Laterality Blood specimen 07/05/2017 4:55 PM 017 5:56 (specimen) EST PM EST Resulting Agency Comment Spec In Lab Daphne Shahid MD CHEMISTRY ORDERABLES Performing Organization Address City/State/ZIP Code Phon e Number [address] (ABNORMAL) pro-Brain Natriuretic Peptide (07/05/2017 4:55 PM EST) P athologist Signature ProBNP 1,598 (H) <=125 [facility] pg/mL [facility] LABORATORY Specimen Anatomical Collection Method Collection Time Receive d Time (Source) Location / / Volume Laterality Blood specimen 07/05/2017 4:55 PM 017 5:24 (specimen) EST PM EST Resulting Agency Comment Spec In Lab Daphne Shahid MD CHEMISTRY ORDERABLES Performing Organization Address City/State/ZIP Code Phon e Number [address] Magnesium (07/05/2017 4:55 PM EST) P athologist Signature Magnesium 0.78 0.69 - 1.07 [facility] mmol/L [facility] LABORATORY Specimen Anatomical Collection Method Collection Time Receive d Time (Source) Location / / Volume Laterality Blood specimen 07/05/2017 4:55 PM 017 5:24 (specimen) EST PM EST Resulting Agency Comment Spec In Lab Daphne Shahid MD CHEMISTRY ORDERABLES Performing Organization Address City/State/[place] [address] (ABNORMAL) Basic Metabolic Panel (non-fasting) (07/05/2017 4:55 PM EST) P athologist Signature Glucose Lvl 230 (H) 65 - 199 [facility] mg/dL [facility] LABORATORY Comment: Diabetes: >=200 mg/dL plus symp toms BUN 19 10 - 20 mg/dL [facility] LABORATORY Creatinine 1.04 0.80 - 1.50 mg/dL [facility] [...] [facility]ENTER LABORATORY Estimated GFR >60 >=60 [facility] LABORATORY Comment: The reported eGFR should be multiplied b y 1.2 for patients. The MDRD is not an appropriate measure o f renal function for patients with body mass extremes or in patients with acute kidney failure. http://Loku.[employer]/DHnkdep http://New.net/DHMCnkf Specimen Anatomical Collection Method Collection Time Receive d Time (Source) Location / / Volume Laterality Blood specimen 07/05/2017 4:55 PM 017 5:24 (specimen) EST PM EST Resulting Agency Comment Spec In Lab Daphne Shahid MD CHEMISTRY ORDERABLES Performing Organization Address City/[facility]/[place] [address] (ABNORMAL) APTT (07/05/2017 4:55 [...] [facility] [address] (ABNORMAL) POCT Glucose (07/05/2017 4:53 PM EST) athologist Signature POC Glucose 208 (H) 65 - 199 [facility] mg/dL [facility] LABORATORY Comment: Supplemental ranges: <140 [...] [facility] [address] EKG 12 Lead (07/05/2017 4:32 PM EST) Component Value Ref Range Test Analysis Performed Pathologis t Method Time At Signature Ventricular rate 97 BPM MUSE SYSTEM Atrial Rate 97 BPM MUSE SYSTEM P-R Interval 148 ms MUSE SYSTEM QRS Duration 96 ms MUSE SYSTEM Q-T Interval 364 ms MUSE SYSTEM QTC Calculated 462 ms MUSE SYSTEM (Bezet) Calculated P [place] 48 degrees MUSE SYSTEM Calculated R [place] -33 degrees MUSE SYSTEM Calculated T [place] 98 degrees MUSE SYSTEM INTERPRETATION Normal sinus [...] atherosclerosis of unspecified type of vessel, [place] or graft Cardiomyopathy, ischemic Other specified forms [...] CONTINUOUS, Starting on Wed07/09/17 at 0230, Until 07/10/17 at 0229, 1mg/min for 6hrs, then 0.5mg/min [...] dose on Wed07/07/17 at 2100, Until Discontinued, [place] teeth, Routine Given 07/08/2017 10:06 PM EST [...] or norepinephrine is ineffective. Call pager # [phone] if initiated. Rate/Dose Change 07/08/2017 7:01 PM [...] Subcutaneous, EVERY 24 HOURS, First dose on 07/10/17 at 1000, Until Discontinued, Routine insulin glargine VIAL injection 65 Units Given 07/13/2017 9:01 AM EST 65 Units 65 Units, Subcutaneous, EVERY 24 HOURS, First dose (after last modification) on 07/11/17 at 1000, Until Discontinued, Routine Given 07/12/2017 [...] Units, Intravenous, PER INSULIN PROTOCOL, Starting on 07/05/17 at 1940, Until Wed07/07/17 at 1838, Per [...] PROTOCOL, Starting on Wed07/07/17 at 1839, Until Ivsi 07/08/17 at 0426, Per Protocol, BOLUS order. [...] if phenyleprine and/or vasopressin ineffective.Call pager # [phone] if initiated., Routine Rate/Dose Change 07/09/2017 1:24 [...] L/min/M2. Maximum volume 2 L. Call house nurse for additional fluid orders: pager #[phone]. Rate/Dose Verify 07/08/2017 4:00 AM EST 100 [...] mg (CANCELED) 0 827 (Given - Provider: Mroe Luther RN) 0840 (Given - Provider: Em [...] Ale Rangel RN)1311 (Given - Provider: Em Jones, VAMSI) [...] VAMSI) 0922 (Given - Provider: Myrna Young, VAMSI) [...] on Wed07/11/17 at 1330, Until Discontinued, Routine 220 (Given - Provider: Ale Rangel, RN) 2130 (No t Given - Provider: [...] 40 mg, Intravenous, DAILY, First dose on 07/07/17 at 1900, Until Discontinued
Reconstitute with 10 mL of normal saline to a concentration of 4 mg/mL and infuse slowly over 2 minutes.
Routine documented in this encounter Care Teams Divorce Attorney Relationship Specialty Start Date End Date Lovely Vicente MD PCP - General 04/16/[address] [place] [address] documented as of this encounter
--- OUTSIDE RECORDS SUMMARY | 2022-03-27 09:27 | XMS_ITS | Encounter Summary ---
:1945 [place] [address] Care Team Providers Name Role Phone Lovely Vicente MD Primary Care Provider Reason for Visit Auth/Cert Specialty Diagnoses / Procedures Referred By Contact Refer red To Contact Diagnoses STEMI (ST elevation myocardial infarction) NSTEMI STEMI Procedures CARDIAC CATHETERIZATION NAYE IPI Referral ID Status Reason Start Date Expiration Date Visits Requ ested Visits Authorized [id number] 1 1 Encounter Details Date Type Department Care Team Description 07/07/2017 Anesthesia Event Main Operating Room Yifan Jaime MD [facility] [address] [place] [address] [facility] Ginny Murray MD [facility] [address] ANESTHESIOLOGY [place] [address] [facility] [place] [phone] Anesthesia Record Procedure Summary Procedure Name [...] Donald A, RN site symptomatic; 07/13/17; 0648 Drain/Device Site 03/28/13; 1146; neck; 03/28/13 1146 by 8 0000 by 07/27/17 Brody Cabrera RN Murray-Duchesn e, Jillian M, RN Urethral Catheter 03/28/13; 1400; other 03/28/13 1400 by 7 [id number] by (see comments)Sahil Sandra, Parrish, Mi chelle A, indwelling double lumen RN RN coude tip catheter; 16; drainage bag to dependent drainage; 07/11/17; 2342 LDA Cath/EP Sheath 07/05/17; 0606; 8 Maltese 07/05/17 0606 by 1118 by (Fr); Right; Femoral [place], Yane Cook, RN PIV 07/05/17; 1720; median 07/05/17 1720 by 07/11/17 2355 by vein (underside of arm), Prior, Yanet Maza, Angela Mccurdy, left; 18 gauge; removed TOUR MANAGER per policy/procedure; 07/11/17; 2355 Intra-Aortic Balloon [...] Miller, Carrie L, Type: Cuffed; ETT Size: RECYCLING CENTER OPERATOR 8 mm; Santiago Blade: 2; Notes: Asleep, Pre-O2; Attempts: 1; Laryngoscopy Grade: 1; ETT Placement Verified By: Auscultation, Capnometry, Visual; Secured at Teeth: 23 cm; Inserted by: gran Arterial Line 07/07/17; 1423; radial 07/07/17 1423 [...] VIP; 8 Fr; CVC Protocol RN Performed; gran; 07/09/17; 0945 CVC Single/Intro. 07/07/17; 1423; internal 07/07/17 1423 by 06/25 02/08 1130 by jugular vein, right; Ginny Murray MD Womack, Jane C, RN Ultrasound Guidance; Yes; 9 Fr; gran; AVELINO; CVC Protocol Performed; no longer indicated, removed per policy/procedure, catheter/device intact; 07/11/17; 1130 Incision 07/07/17; 1423; chest; 07/07/17 1423 by 08/16/17 1047 by midline; 08/16/17; 1047 Shayy Fuller, RN Kenan lia, Dory M, RN Incision 07/07/17; 1432; knee [...] (24 fr Robbie RN Drain); 07/09/17; 1303 Drain/Device Site 07/07/17; 1545; Right; 07/07/17 1545 by 0400 by medial; knee; Monica Orourke RN [...] All Anesthesia Providers: Anesthesiologist: Yifan Perez MD Animal Stunner: Ginny Murray MD Most Recent Vitals: 07/08/17 [...] Cardiology Zulma Dolan MD [facility] [place] [address] (Wo rk) 05/28/2022 Laboratory Appointment Lab 05/28/2022 Office Visit Cardiology Zulma Dolan MD [facility] [place] [address] Liz Poole PA [facility] [place] [address] 06/10/2022 Office Visit Dermatology Laura Scherer MD [facility] TEJA GR-DERMAT OLOGY [place], [place] [address] (Wo rk) documented as [...] mg documented in this encounter Care Teams Downstream Biomanufacturing Technician Relationship Specialty Start Date End Date Lovely Vicente MD PCP - General 04/16/[address] [place] [address] documented as of this encounter
--- OUTSIDE RECORDS SUMMARY | 2022-03-27 09:27 | XMS_ITS | Encounter Summary ---
:1945 Author Organization [facility] Address [facility] [place] [address] Care Team Providers Name Role Phone Lovely Vicente MD Primary Care Provider Reason for Visit Auth/Cert Specialty Diagnoses / Procedures Referred By Contact Refer red To Contact Diagnoses STEMI (ST elevation myocardial infarction) NSTEMI STEMI Procedures CARDIAC CATHETERIZATION NAYE IPI Referral ID Status Reason Start Date Expiration Date Visits Requ ested Visits Authorized [id number] 1 1 Encounter Details Date Type Department Care Team Description 07/07/2017 Surgery Main Operating Room Yuan Webber, @ CABG, USING ARTERIAL Barbara Ocampo MD GRAFT;SINGLE ARTERIAL Hospital [facility] GRAFT (WRVU 33.75) [facility] DR Siddiqu[place] [address] SURGERY [phone] [place], [place] [address] (Wo rk) Social History Tobacco [...] in this encounter Discharge Summaries Martha Teague, FORMAL WAITER/WAITRESS - 07/14/2017 9:38 AM EST Inpatient - [...] , @ 1:20p Patient to follow-up with Pinsetter Mechanic Helper/heart failure team in one week. An appointment will be made for you. You may call [phone] Patient to follow-up with Cardiac Surgery, Dr. Yuan Webber, in ~ 4 weeks with CXR, EKG. Inpatient Provider Contact Information: [facility] Section of Cardiac Surgery [facility] [address] FAX [phone] Discharge Diagnoses (Hospital Problems) Primary Diagnoses: CAD [...] SETUP performed by Manny Mcknight MD at [facility] OR ??? PRO CABG, ARTERIAL, SINGLE N/A 07/07/2017 @CABG, USING ARTERIAL GRAFT;SINGLE ARTERIAL GRAFT (WRVU 33.75) performed by Yuan Webber MD at [facility] OR ??? PRO CABG, ARTERY-VEIN, TWO N/A 07/07/2017 @CABG, TWO VENOUS GRAFTS & ARTERIAL GRAFT (WRVU 7.93) performed by Yuan Webber MD at [facility] OR ??? PRO COLONOSCOPY, REMV LESN, SNARE 01/16/2014 COLONOSCOPY, POLYPECTOMY, REMOVAL LESION BY SNARE performed by Nohemi Jaimes MD at [facility] ENDOSCOPY ??? PRO ENDOSCOPY W/VIDEO-ASST VEIN HARVEST, CABG Right 07/07/2017 ENDOSCOPIC HARVEST VEIN(S) FOR CABG (WRVU 0.31) performed by Yuan Webber MD at [facility] OR ??? PRO THYROIDECTOMY 03/28/2013 THYROIDECTOMY, TOTAL OR COMPLETE performed by Manny Mcknight MD at [facility] OR Prior To Admission Medications Prescriptions Prior to Admission Medication Sig Dispense Refill Last Dose ??? levothyroxine (SYNTHROID) 175 mcg Tablet Take 1 tablet by mouth daily. 90 tablet 3 07/05/2017 [id number] ??? ascorbic acid, vitamin C, (VITAMIN C) [...] course, he was taken emergently to the manager cardiac cath for an ongoing STEMI. An [...] not take or discontinue any prescription or ihuk-tny-mqqfjrf medications without asking your doctor or pharmacist [...] Yuan Webber and/or the Cardiac Surgery Physician Echometer Engineer Team may be reached at . [...] Dr. Yuan Webber. You may use a [place] Track or treadmill but avoid any [...] friends, go to a movie, go to yazdanism, etc. Heavy activities: No hunting, skiing, jogging, snow shoveling, snowmobiling, lawn mowing, swimming, golf or tennis until after your return appointment with the surgeon. Do not ride motorcycles, PerMicro's tractors or horses. Avoid the use of [...] should resume a low fat, low cholesterol, [place] Heart Association Diet/Diabetic diet. Driving: No [...] , @ 1:20p Patient to follow-up with Pinsetter Mechanic Helper/heart failure team in one week. Appointment will be made for you. You may call [phone] Patient to follow-up with Cardiac Surgery, Dr. Yuan Webber, in ~ 4 weeks with CXR, EKG. Cardiac Rehabilitation: Gregory Hoang was seen today regarding participation in the outpatient Phase 2 Cardiac Rehabilitation at [facility]. The patient agrees to a referral to this program. The referral will be sent at discharge and the patient should be contacted by the Program within 1- 2 weeks from discharge. ?? Future Appointments and Orders Future Appointments Provider Department Dept Phone 09/07/2017 3:00 PM LAB, [facility] Lab 3L [facility] [phone] 09/07/2017 4:00 PM Luz Prescott MD Endocrinology at [facility] [phone] Future Orders Complete By Expires EKG 12 Lead [EKG1 Custom] 08/14/2017 02/13/2018 Process Instructions: Scheduling Instructions: Questions: Which DH location will this be performed?: [facility] Is a rhythm strip needed?: No If EKG Reason is Pre-op Evaluation, indicate diagnosis for surgery.: XR Chest PA & Lateral (Generic) [[id number] Custom] 08/14/2017 02/13/2018 Process Instructions: Scheduling Instructions: Questions: Where will study be performed?: [facility] Portable exam?: Reason for exam and clinical history: CABG x 3 Other pertinent information: Stat read required?: Date of injury if applicable: Requested Time: Referral to Cardiac Rehab [ADJ519 Custom] As directed Process Instructions: If no progress note charted, please enter Clinical details in comments. Scheduling Instructions: Questions: My question or request is: s/p CABG. Cardiac rehab at [facility] Referral to Home Health - at DISCHARGE [AXW0645 CPT(R)] As directed Process Instructions: Scheduling Instructions: Comments: DOCUMENTATION FOR VNA SERVICES (INCLUDING THOSE PATIENTS WITH MEDICARE COVERAGE REQUIRING HOME VNA SERVICES AND/OR HOSPICE SERVICES) PATIENT'S LOCATION: Gregory Hoang [address] [place] [address] [place] [id number] (home) Telephone Information: Cruise Consultant's Name: self In discussion with the attending physician, it is certified that this patient is under their care and that they, or a Nurse Practitioner, or Physician Echometer Engineer who is working directly with them, [...] HEALTH AGENCY: [facility] ([facility] [place] [facility] in [place]) PHONE: [phone] FAX: [phone] RN orders: Cardiopulmonary assessment, incisional assessment, assess vital signs, assessment of rehab progress, medication management and effectiveness, home safety evaluation. Please draw INR if indicated and send result to:Dr Vicente [phone] PT ORDERS: Continue rehab for endurance, gait stability and strength with mobility and transfers. Home safety evaluation. Home exercise program if appropriate. Start of Care Date:24-48 hours after discharge SPECIAL INSTRUCTIONS: For any follow up questions, needs, or issues please call the Cardiac Surgery Office at [phone] FOR MEDICARE ONLY: (please delete this section [...] OR AFTER 07/17/2017 Signed: Martha Teague APRN [facility] Section of Cardiac Surgery [facility] [address] FAX [phone] Date: 07/14/2017 CC: MD Ivania Cr Betsy, PA [address] [place] [phone] documented in this encounter Discharge Instructions Discharge [...] not take or discontinue any prescription or coos-ljf-geulpvt medications without asking your doctor or pharmacist [...] Yuan Webber and/or the Cardiac Surgery Physician Echometer Engineer Team may be reached at . [...] Dr. Yuan Webber. You may use a [place] Track or treadmill but avoid any [...] friends, go to a movie, go to yazdanism, etc. ?? Heavy activities: No hunting, skiing, jogging, snow shoveling, snowmobiling, lawn mowing, swimming, golf or tennis until after your return appointment with the surgeon. Do not ride motorcycles, Per[employer]'s tractors or horses. Avoid the use of [...] should resume a low fat, low cholesterol, [place] Heart Association Diet/Diabetic diet. ?? Driving: [...] @ 1:20p ?? Patient to follow-up with Pinsetter Mechanic Helper/heart failure team in one week. An appointment has been made for you, you can call [phone] ?? Patient to follow-up with Cardiac Surgery, Dr. Yuan Webber, in ~ 4 weeks with CXR, EKG. ? Cardiac Rehabilitation: Gregory Hoang??was seen today regarding participation in the outpatient Phase 2 Cardiac Rehabilitation at [facility]. ?? The patient agrees to a referral to this program.? The referral will be sent at discharge and the patient should be contacted by the Program within 1- 2 weeks from discharge. ? Future Appointments and Orders Future Appointments Provider Department Dept Phone ?? 09/07/2017 3:00 PM LAB, [facility] Lab 3L [facility] [phone] ?? 09/07/2017 4:00 PM Luz Prescott MD Endocrinology at [facility] [phone] Future Orders Complete By Expires ?? EKG 12 Lead [EKG1 Custom] 08/14/2017 02/13/2018 ?? Process Instructions: ? Scheduling Instructions: ? Questions: ? Which location will this be performed?: [facility] ?? Is a rhythm strip needed?: No ?? If EKG Reason is Pre-op Evaluation, indicate diagnosis for surgery.: ?? XR Chest PA & Lateral (Generic) [[id number] Custom] 08/14/2017 02/13/2018 ?? Process Instructions: ? Scheduling Instructions: ? Questions: ? Where will study be performed?: [facility] ?? Portable exam?: ?? Reason for exam and clinical history: CABG x 3 ?? Other pertinent information: ?? Stat read required?: ?? Date of injury if applicable: ?? Requested Time: ?? Referral to Cardiac Rehab [XFF364 Custom] As directed ? Process Instructions: ?? If no progress note charted, please enter Clinical details in comments. ?? Scheduling Instructions: ? Questions: ? My question or request is: s/p CABG. Cardiac rehab at [facility] ? Arrangements for VNA/home care: As above. [...] RN - 07/14/2017 2:34 PM EST The patient/healthcare representative has been provided a list of Home Health Agencies/DME vendors which serve their preferred geographic area. A letter describing our affiliations was reviewed with them and theywere educated about their right to choose where referrals are placed. Patient requests referral to [facility] [employer]. PHONE: [phone] FAX: [phone] Expected date of discharge: 07/14 Referral routed to the Vibratory Pile Driver for matching with agency/vendor and to provide [facility] End[facility] Diabetes Management Pager [phone] minutes of this 35 minute visit was spent with the patient in counseling on diabetes and treatment plan, reviewing all glucose and insulin data as well as relevant laboratory results with the patient, and coordination of care on the inpatient unit including nursing and primary team. Zulma Power RN - 07/14/2017 10:30 AM EST The patient/healthcare representative has been provided a list of Home Health Agencies/DME vendors which serve their preferred geographic area. A letter describing our affiliations was reviewed with them and theywere educated about their right to choose where referrals are placed. Patient requests referral to : [facility] ([facility] [place] [facility] in [place]) PHONE: [phone] FAX: [phone]. Expected date of discharge: 07/14/17 Referral routed to the Vibratory Pile Driver for matching with agency/vendor and to provide [...] hours. If BG remains greater than 240, rbimxe36 units (no more than three times) &??call [facility] Management Pager [phone] minutes of this 25 minute visit [...] of infiltration/extravasation Discussed plan of care with ORNAMENTAL BRICK INSTALLER and RN. Elevate exrtemity and apply intermittent Warm compresses. Name of MD contacted Dr. Shaw Brown 07/13/2017 @ 0601 Name of RN contacted Ale Rangel RN Name of Pharmacist if consulted NA Name of Plastics MD ( if consulted) NA (Mandatory photo for infiltrations/ extravasations scoring a stage 2 or greater, but recommended forstage 1)( include measuring tape and identifier in the photo) TRANSPORTATION ANALYST CARING FOR THIS PATIENT WILL CONTINUE [...] measuring tape and identifier in the photo) TRANSPORTATION ANALYST CARING FOR THIS PATIENT WILL CONTINUE [...] regard to both infiltrates addressed by this selling underwriter.All of MrMadiha Hoang's responses were entirely appropriate. Images of infiltrates attached here. L Martha Teague, FORMAL WAITER/WAITRESS - 07/13/2017 8:01 AM EST Cardiac Surgery Progress Note: ID: [id number] 72 year old male POD#6 s/p CABGx3 [...] discharge. ?? I have met with the patient/healthcare representative to discuss discharge planning needs. I have provided the [facility], Office of Care Management letter from the Icd 9 Coder pertaining to rehab referrals. I have also provided a letter describing our affiliations within the [facility] and educated them about their right to choose where referrals are placed. ?? I reviewed the different levels of rehab including SNF, swing, acute and LTAC with the patient/healthcare representative. ?? The patient/healthcare representative has been provided a list of facilities within their preferred geographic area. ?? I have requested that the patient/healthcare representative provide at least three choices for referral. ?? The patient/healthcare representative have requested referrals to: ?? [facility]. [facility] ?? 2. [facility] ?? 3. More to be entered ?? Expected date of discharge: 07/14 Note routed to Vibratory Pile Driver who will communicate referrals to facilities and [...] hours. If BG remains greater than 240, jtnexv39 units (no more than three times) & [...] hours. If BG remains greater than 240, tiklrm61 units (no more than three times) & call for new basal insulin orders. ??If less than 240 after two hours, give no insulin and resume prior schedule. Will continue to follow Katerin Azul APRN [facility] Endocrinology Diabetes Management Pager [phone] minutes of this 35 minute visit was spent with the patient in counseling on diabetes and treatment plan, reviewing all glucose and insulin data as well as relevant laboratory results with the patient, and coordination of care on the inpatient unit including nursing and primary team. Makayla Stevenson APRN - 07/12/2017 9:52 AM EST Cardiac Surgery Progress Note: ID: [id number] 72 year old male POD#5 s/p CABGx3 [...] 07/11/2017 7:18 PM EST Patient arrived from [facility]. VSS. MSI dressing pulled off with fresh [...] hours. If BG remains greater than 240, uutrxz67 units (no more than three times) & [...] AM EST Cardiac Surgery Progress Note: ID: [id number] 72 year old male POD#4 s/p CABGx3 [...] hours. If BG remains greater than 240, wapsat27 units (no more than three times) & [...] AM EST Cardiac Surgery Progress Note: ID: [id number] 72 year old male POD#3 s/p CABGx3 [...] Gas) No results found for: PHART, PO2ART, SZG0PMZ Assessment/Plan: 72 year old male POD#3 s/p [...] Mami Thao - 07/09/2017 6:29 PM EST Mac Artist Encounter Note Patient Name: Gregory Hoang : [id number] MR#: [id number] Admit Date: 07/05/2017 4:20 PM Hospital Day 4 days Narrative: Patient was sitting in chair, hugging heart pillow, opened his eyes, nodding to come into room Assessment: Patient was sleepy. Intervention and Outcome: Introduced sales and events coordinator services and patient reached his hand out in appreciation. Follow-up: Mac Artist remains available for support. Time in Direct [...] AM EST Cardiac Surgery Progress Note: ID: [id number] 72 year old male POD#2 s/p CABGx3 [...] completed shifts: In: 7977.4 [I.V.:7477.4; Other:500] Out: 7535 [Urine:3000; Other:615] I- 4 L O- 2.7 [...] when IABP d/c'ed. Gretchen Carolina, PT Pager [phone] Maddison Cee PA - 07/08/2017 11:27 AM EST Cardiac Surgery Progress Note: ID: [id number] 72 year old male POD#1 s/p CABGx3 [...] in place in R femoral. No hematoma. POT LINER- Intact Psych- Anxious Skin- Dry, no peripheral [...] Gregory Hoang 1945 Age: 72 y.o. PCP: Loevly Vicente MD Date of Service: 07/06/2017 Date [...] intact. IABP in place in R femoral. POT LINER- Intact Psych- Anxious Skin- Dry, no peripheral [...] note for details. DAPHNE SHAHID MD Pager [phone] Jet Mckenna MD - 07/05/2017 6:48 PM EST Preliminary Cardiac Catheterization Procedure Note: Procedure(s) performed: Left heart cath, IABP insertion Access: Right POWERHOUSE OILER-->8fr IABP A time-out was conducted prior to [...] effect. Heparin gtt maintained. Pt transferred to manager cardiac cath. documented in this encounter H&P Notes Daphne Shahid MD - 07/05/2017 6:08 PM EST CARDIOLOGY HISTORY & PHYSICAL EXAM Date of Admission: 07/05/2017 ( Hospital Day 0 days ) Responsible Attending: Daphne Shahid MD PCP: Lovely Vicente MD PCP#: [phone] Patient Active Problem List Diagnosis Code ??? [...] load with heparin drip and transferred to [facility]. While there, continued sob, question of chest pain. Stat TTE showing WMA diffusely and EF around 20%. No significant valvular disease. Taken to the manager cardiac cath urgently for ongoing STEMI. [facility] Labs: INR 1.0 WBC 5.88 Hgb 12.9 [...] monitor I/O - s/p lasix in the manager cardiac cath, redose to aim net neg [...] Medicine, PGY-2 Cardiology S1, Team Pager # [phone] CARDIOLOGY ATTENDING NOTE Patient: Gregory Hoang Date [...] amenable for PCI. DAPHNE SHAHID MD Pager [phone] documented in this encounter Miscellaneous Notes Consult Note - Daphne Shahid MD - 07/14/2017 11:46 AM EST Heart Failure Service Inpatient Consult Note Gregory Hoang Date of : 1945 Age: 72 y.o. Today's date: 07/14/17 PCP: Lovely Vicente MD CASH APPLICATIONS COORDINATOR: None Place of Service: C451-A Reason for [...] SETUP performed by Manny Mcknight MD at [facility] OR ??? PRO CABG, ARTERIAL, SINGLE N/A 07/07/2017 @CABG, USING ARTERIAL GRAFT;SINGLE ARTERIAL GRAFT (WRVU 33.75) performed by Yuan Webber MD at [facility] OR ??? PRO CABG, ARTERY-VEIN, TWO N/A 07/07/2017 @CABG, TWO VENOUS GRAFTS & ARTERIAL GRAFT (WRVU 7.93) performed by Yuan Webber MD at [facility] OR ??? PRO COLONOSCOPY, REMV LESN, SNARE 01/16/2014 COLONOSCOPY, POLYPECTOMY, REMOVAL LESION BY SNARE performed by Nohemi Jaimes MD at [facility] ENDOSCOPY ??? PRO ENDOSCOPY W/VIDEO-ASST VEIN HARVEST, CABG Right 07/07/2017 ENDOSCOPIC HARVEST VEIN(S) FOR CABG (WRVU 0.31) performed by Yuan Webber MD at [facility] OR ??? PRO THYROIDECTOMY 03/28/2013 THYROIDECTOMY, TOTAL OR COMPLETE performed by Manny Mcknight MD at [facility] MAIN OR Outpt Meds: Current Outpatient Prescriptions [...] following studies: EKG 07/14/17: NSR 75 bpm, REGISTERED DIET TECHNICIAN anterior infarct, LAD CXR 07/11/17: FINDINGS: Sternotomy wires. The patient has been extubated, left chest tube removed, and [place]-Suzi catheter removed since the 07/07/2017 study. Atelectasis [...] was discussed with Zehra. Jaden Kelley MD Engine Research Engineer Pager [phone] CARDIOLOGY ATTENDING NOTE Patient: Gregory Hoang Date [...] heart failure clinic. DAPHNE SHAHID MD Pager [phone] Plan of Care - Alden Chavarria, PLASTERER STUCCO - 07/14/2017 11:35 AM EST Problem: Patient [...] Disposition: home with assist Alden Jorge Genikevin, PLASTERER STUCCO Pager: [phone] Inpatient Physical Therapy Problem: Acute Rehab Services [...] sit/sit to supine -- Bed Mobility Goal, Page Level supervision required -- Bed Mobility Goal, [...] - 3 days -- Gait Training Goal, Page Level supervision required -- Gait Training Goal, [...] days -- Transfer Training Goal, Activity Type nyh-em-siliv/qshwp-qc-fqz;akb-uo-jpthx/wmzwy-dq-wup;toilet -- Transfer Train Goal, Page Level supervision required -- Transfer Training Goal, [...] keeping present for 2 days per family. Civil Attorney noted of frustrations, house keeping sent to room. Patient offered showered twice, refused. at bedside, frustrated that shower not complete, informed that patient had refused several times. requesting to see CORRECTION WORKER, paged sent to Martha, will come to bedside (middle of consult). not willing to wait, Martha notified that family had gone home. Encouraged to come for morning rounds a t 8am. Diabetes team at bedside - insulin adjustments made. Call cabello in reach. Continue to monitor. PLAN MOVING FORWARD: Ambulate, dressing changes BID, Please change drsg at 4am per Martha CORRECTION WORKER request. INDIVIDUALIZED FALL PREVENTION INTERVENTIONS: Patient-specific [...] levels on the lower side, 60ml of Irene juice given after a FS of 80. [...] Conf 07/13/17 0502 Interdisciplinary Rounds/Family Conf Participants gearcase assembler;dietitian/nutrition services;nursing;occupational therapy;patient;pharmacy;physical therapy;physician Plan of Care [...] Anticipated Discharge Disposition: home with assist Pager: [phone] CLARISSA SEGAL, PT 07/12/2017 Physical Therapy Rehabilitation [...] to sit/sit to supine Bed Mobility Goal, Page Level supervision required Bed Mobility Goal, Additional Goal adheres to psternal precautions for transfer Goal: Gait Training Goal Stand Alone Therapy Goal Outcome: Ongoing (Interventions Implemented as Appropriate) 07/12/17 1225 Gait Training Goal Gait Training Goal, Date Established 07/12/17 Gait Training Goal, Time to Achieve 2 - 3 days Gait Training Goal, Page Level supervision required Gait Training Goal, Assist [...] 3 days Transfer Training Goal, Activity Type cwl-ae-zqvuk/ptqhx-rw-bov;kvt-xu-cczsm/jnied-na-bkr;toilet Transfer Train Goal, Page Level supervision required Transfer Training Goal, Additional Goal adheres to sternal precautions during transfer Consult Note - Octavia Vaughn RN - 07/12/2017 10:50 AM EST [facility]ARDIAC REHABILITATION Gregory Hoang was seen today regarding participation in the outpatient Phase 2 Cardiac Rehabilitation at [facility]. The patient agrees to a referral to [...] IV site, amio to other piv and GRINDER MACHINE KNIFE SETTER at bedside to help assess, IV removed. [...] staff, he stood and marched in place. [place] weak, wanting to sit back down. Remained [...] Health/Prescription Coverage: Primary Insurance: MEDICARE Secondary Insurance: [place] Prescription Coverage: yes Preferred Pharmacy: [facility] [place] Other: none Primary Care Provider: Lovely Vicente MD [phone] Patient/Caregiver Goals of Treatment:live and get my breath back Potential Needs for Transition of Care: Rehab/SNF: [facility] Home Health: NA DME: TBD Dialysis: na Community Resources: available Transportation: yes Other: none Anticipated Barriers to Discharge/Special Considerations: none Plan: Likely SNF Rehab before home A member of the Care Management team will continue to monitor progress, follow for continuity of care and assist with transition of care planning. ERLIN Weiss Pager: [phone] Consult Note - Katerin Azul RN - [...] and to provide a review of termite exterminator helper diabetes care. Diabetes History: Gregory Hoang [...] patient W/E coverage, Dr. Jeane Tatum, pager [phone] Katerin Azul APRN Endocrinology Diabetes Management Pager [phone] Plan of Care - Walt Stephanie Wyatt [...] Operative Note Patient Name: Gregory Hoang : [id number] MR#: [id number] Case Date: 07/07/2017 Surgeon: Surgeon(s) and Role: * Yuan Webber MD - Primary * Michael Drake PA - Physician Echometer Engineer * Linda Flores PA - Physician Echometer Engineer Preoperative diagnosis: 3VD Postoperative diagnosis: CAD, [...] Operative Note Patient Name: Gregory Hoang : [id number] MR#: [id number] Case Date: 07/07/2017 Surgeon: Surgeon(s) and Role: * Yuan Webber MD - Primary * Michael Drake PA - Physician Echometer Engineer * Linda Flores PA - Physician Echometer Engineer Preoperative diagnosis: 3VD Postoperative diagnosis: CAD, [...] code status: Full Code Katty Hahn, MS3 [facility] Cardiology S1 (Pager [phone]) Plan of Care - Emelia Ibarra RN [...] Manny Mcknight MD at [facility] MAIN OR ??? PRO COLONOSCOPY, REMV LESN, SNARE 01/16/2014 COLONOSCOPY, POLYPECTOMY, REMOVAL LESION BY SNARE performed by Nohemi Jaimse MD at [facility] ENDOSCOPY ??? PRO THYROIDECTOMY 03/28/2013 THYROIDECTOMY, TOTAL OR COMPLETE performed by [facility] [facility] Social History: Social History Social [...] with other involved physicians Yuan Webber MD [phone] Med Student Progress Note - Katty Hahn [...] or BiPAP - s/p lasix in the manager cardiac cath, was net -1.5L - s/p [...] - Dispo: CVCC Katty Hahn, M3 [facility] Cardiology S1 (Pager [phone]) Plan of Care - Stephanie Godoy RN - 07/06/2017 5:00 AM EST Problem: Patient Care Overview Goal: Plan of Care Review 07/06/17 0766 Coping/Psychosocial Plan Of Care Reviewed With patient;family [...] in urinal without difficulty. Lasix given in manager cardiac cath, 1.4 L out at this [...] Dolan MD [facility] [address] [place] [address] (Wo rk) 05/28/2022 Laboratory Appointment Lab 05/28/2022 Office Visit Cardiology Zulam Dolan MD [facility] [place] [address] Liz Poole PA [facility] [place] [address] 06/10/2022 Office Visit Dermatology Laura Scherer MD [facility] [address] [place], [place] [address] (Wo rk) Scheduled Orders Name [...] procedure are i n the results section. CONDITIONING ROOM WORKER SCAN 07/15/2017 12:00 Res ults for this [...] Yes 07/07/2017 1:35 CAD & [facility] PM EST 7.93) @CABG, USING ARTERIAL [...] Routine 07/06/2017 2:20 Results f or this ([facility] [...] Routine 07/05/2017 8:20 Results f or this ([facility] PM EST procedure are i n the [...] f or this ([facility] PM EST procedure are i n the [...] 2017 EXAMINATION: XR CHEST PA AND LATERAL ([email or web address] NERIC) CLINICAL HISTORY: CABG x 3 TECHNIQUE: [...] Teague APRN IMG DX ORDERABLES 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 Comment: Supplemental ranges: <140 mg/dL before meals <180 mg/dL all other times of the day Specimen Anatomical Collection Method Collection Time Receive d Time (Source) Location / / Volume Laterality Blood specimen 07/14/2017 11:56 7 (specimen) AM EST 11:56 AM EST Yuan Webber MD POINT OF CARE TEST ORDERABLE S Performing Organization Address City/State/ZIP Code Phon e Number [address] POCT Glucose (07/14/2017 7:52 AM EST) athologist Signature POC Glucose 126 65 - 199 [facility] mg/dL [facility] Comment: Supplemental ranges: <140 mg/dL before meals <180 mg/dL all other times of the day Specimen Anatomical Collection Method Collection Time Receive d Time (Source) Location / / Volume Laterality Blood specimen 07/14/2017 7:52 AM 017 7:52 (specimen) EST AM EST Yuan Webber MD POINT OF CARE TEST ORDERABLE S Performing Organization Address City/State/ZIP Code Phon e Number [address] (ABNORMAL) Prothrombin Time (07/14/2017 [...] Address City/State/ZIP Code Phon e Number [address] Potassium (07/14/2017 4:46 AM EST) athologist Signature Potassium 4.3 3.5 - 5.0 [facility] mmol/L [facility] Comment: Please note: ??Patients [...] Address City/State/ZIP Code Phon e Number [address] POCT Glucose (07/14/2017 4:34 AM EST) athologist Signature POC Glucose 115 65 - 199 [facility] mg[facility] Comment: Supplemental ranges: <140 [...] [facility]/ZIP Code Phon e Number [address] POCT Glucose (07/13/2017 11:33 PM EST) athologist Signature POC Glucose 132 65 - 199 [facility] mg[facility]dL [facility] Comment: Supplemental ranges: <140 [...] [facility]/ZIP Code Phon e Number [address] POCT Glucose (07/13/2017 9:25 PM EST) athologist Signature POC Glucose 121 65 - [address] [facility] mg/dL [facility] Comment: Supplemental ranges: <140 mg/dL before meals <180 mg/dL all other times of the day Specimen Anatomical Collection Method Collection Time Receive d Time (Source) Location / / Volume Laterality Blood specimen 07/13/2017 9:25 PM 017 9:25 (specimen) EST PM EST Yuan Webber MD POINT OF CARE TEST ORDERABLE S Performing Organization Address City/State/ZIP Code Phon e Number [address] POCT Glucose (07/13/2017 4:55 PM EST) P athologist Signature POC Glucose 79 65 - 199 [place] mg/dL [facility] Comment: Supplemental ranges: <140 mg/dL before meals <180 mg/dL all other times of the day Specimen Anatomical Collection Method Collection Time Receive d Time (Source) Location / / Volume Laterality Blood specimen 07/13/2017 4:55 PM 017 4:55 (specimen) EST PM EST Yuan Webber MD POINT OF CARE TEST ORDERABLE S Performing Organization Address City/State/ZIP Code Phon e Number [address] POCT Glucose (07/13/2017 11:16 AM EST) athologist Signature POC Glucose 163 65 - 199 [place] mg/dL [facility] Comment: Supplemental ranges: <140 mg/dL before meals <180 mg/dL all other times of the day Specimen Anatomical Collection Method Collection Time Receive d Time (Source) Location / / Volume Laterality Blood specimen 07/13/2017 11:16 7 (specimen) AM EST 11:16 AM EST Yuan Webber MD POINT OF CARE TEST ORDERABLE S Performing Organization Address City/State/ZIP Code Phon e Number [address] POCT Glucose (07/13/2017 8:07 AM EST) athologist Signature POC Glucose 96 65 - 199 [place] mg/dL [facility] Comment: Supplemental ranges: [...] [facility]/[place] [address] (ABNORMAL) Prothrombin Time (07/13/2017 [...] [facility]/[place] [address] (ABNORMAL) Basic Metabolic Panel (non-fasting) (07/13/2017 4:26 AM EST) P athologist Signature Glucose Lvl 95 65 - 199 [facility] mg/dL [facility] Comment: Diabetes: >=200 mg/dL plus symp toms BUN 25 (H) 10 - 20 mg/dL [facility] Creatinine 1.19 0.80 - 1.50 mg/dL [facility] Sodium 143 135 - 145 mmol/L [facility] Potassium 3.7 3.5 - [...] [facility] Estimated GFR 60 >=60 [facility] Comment: The reported eGFR should be multiplied b y 1.2 for patients. The MDRD is not an appropriate measure o f renal function for patients with body mass extremes or in patients with acute kidney failure. http://[employer]/DHnkdep http://[employer]/DHMCnkf Specimen Anatomical Collection Method Collection Time Receive d Time (Source) Location / / Volume Laterality Blood specimen 07/13/2017 4:26 AM 017 4:46 (specimen) EST AM EST Resulting Agency Comment Spec In Lab Makayla Wilson APRN CHEMISTRY ORDERABLES Performing Organization Address City/[facility]/ZIP Code Phon e Number [address] POCT Glucose (07/13/2017 3:52 AM EST) P athologist Signature POC Glucose 93 65 - 199 [facility] mg/dL [facility] Comment: Supplemental ranges: <140 mg/dL before meals <180 mg/dL all other times of the day Specimen Anatomical Collection Method Collection Time Receive d Time (Source) Location / / Volume Laterality Blood specimen 07/13/2017 3:52 AM 017 3:52 (specimen) EST AM EST Yuan Webber MD POINT OF CARE TEST ORDERABLE S Performing Organization Address City/State/ZIP Code Phon e Number [address] POCT Glucose (07/13/2017 12:21 AM EST) athologist Signature POC Glucose 80 65 - 199 [place] mg/dL [facility] Comment: Supplemental ranges: <140 mg/dL before meals <180 mg/dL all other times of the day Specimen Anatomical Collection Method Collection Time Receive d Time (Source) Location / / Volume Laterality Blood specimen 07/13/2017 12:21 7 (specimen) AM EST 12:21 AM EST Yuan Webber MD POINT OF CARE TEST ORDERABLE S Performing Organization Address City/State/ZIP Code Phon e Number [address] POCT Glucose (07/12/2017 8:22 PM EST) athologist Signature POC Glucose 119 65 - 199 [facility] mg/dL [facility] Comment: Supplemental ranges: <140 mg/dL before meals <180 mg/dL all other times of the day Specimen Anatomical Collection Method Collection Time Receive d Time (Source) Location / / Volume Laterality Blood specimen 07/12/2017 8:22 PM 017 8:22 (specimen) EST PM EST Yuan Webber MD POINT OF CARE TEST ORDERABLE S Performing Organization Address City/State/ZIP Code Phon e Number [address] POCT Glucose (07/12/2017 4:02 PM EST) athologist Signature POC Glucose 114 65 - 199 [place] mg/dL [facility] Comment: Supplemental ranges: <140 mg/dL before meals <180 mg/dL all other times of the day Specimen Anatomical Collection Method Collection Time Receive d Time (Source) Location / / Volume Laterality Blood specimen 07/12/2017 4:02 PM 017 4:02 (specimen) EST PM EST Yuan Webber MD POINT OF CARE TEST ORDERABLE S Performing Organization Address City/State/[place] [address] POCT Glucose (07/12/2017 11:28 AM EST) athologist Signature POC Glucose 164 65 - 199 [facility] mg[facility] Comment: Supplemental ranges: <140 mg/dL before meals <180 mg/dL all other times of the day Specimen Anatomical Collection Method Collection Time Receive d Time (Source) Location / / Volume Laterality Blood specimen 07/12/2017 11:28 7 (specimen) AM EST 11:28 AM EST Yuan Webber MD POINT OF CARE TEST ORDERABLE S Performing Organization Address City/State/ZIP Code Phon e Number [address] POCT Glucose (07/12/2017 7:34 AM EST) athologist Signature POC Glucose 109 65 - 199 [facility] mg/dL [facility] Comment: Supplemental ranges: <140 mg/dL before meals <180 mg/dL all other times of the day Specimen Anatomical Collection Method Collection Time Receive d Time (Source) Location / / Volume Laterality Blood specimen 07/12/2017 7:34 AM 017 7:34 (specimen) EST AM EST Yuan Webber MD POINT OF CARE TEST ORDERABLE S Performing Organization Address City/State/[place] [address] (ABNORMAL) Basic Metabolic Panel (non-fasting) (07/12/2017 4:11 AM EST) athologist Signature Glucose Lvl 92 65 - 199 [facility] mg[facility]dL [facility] Comment: [...] in patients with acute kidney failure. http://[employer]/DHnkdep http://[employer]/DHMCnkf Specimen Anatomical Collection Method Collection Time Receive d Time (Source) Location / / Volume Laterality Blood specimen 07/12/2017 4:11 AM 017 8:57 (specimen) EST AM EST Resulting Agency Comment Spec In Lab Makayla Katie QUINONES CHEMISTRY ORDERABLES Performing Organization Address City/State/[place] [address] (ABNORMAL) Prothrombin Time (07/12/2017 [...] [facility]/[place] [address] Potassium (07/12/2017 4:11 AM EST) athologist Signature Potassium 3.8 3.5 - 5.0 [facility] mmol/L [facility] Comment: Please note: ??Patients [...] Resulting Agency Comment Spec In Lab Makayla Wilsno APRN CHEMISTRY ORDERABLES Performing Organization Address City/[facility]/[place] [address] POCT Glucose (07/12/2017 4:10 AM EST) athologist Signature POC Glucose 90 65 - 199 [facility] mg[facility]dL [facility] Comment: Supplemental ranges: <140 [...] [facility]/[place] [address] POCT Glucose (07/11/2017 11:57 PM EST) athologist Signature POC Glucose 98 65 - 199 [facility] mg/dL [facility] Comment: Supplemental ranges: <140 mg/dL before meals <180 mg/dL all other times of the day Specimen Anatomical Collection Method Collection Time Receive d Time (Source) Location / / Volume Laterality Blood specimen 07/11/2017 11:57 7 (specimen) PM EST 11:57 PM EST Yuan Webber MD POINT OF CARE TEST ORDERABLE S Performing Organization Address City/State/[place] [address] POCT Glucose (07/11/2017 8:32 PM EST) P athologist Signature POC Glucose 146 65 - 199 [facility] mg/dL [facility] Comment: Supplemental ranges: <140 mg/dL before meals <180 mg/dL all other times of the day Specimen Anatomical Collection Method Collection Time Receive d Time (Source) Location / / Volume Laterality Blood specimen 07/11/2017 8:32 PM 017 8:32 (specimen) EST PM EST Yuan Webber MD POINT OF CARE TEST ORDERABLE S Performing Organization Address City/State/[place] [address] XR Chest PA & [...] e xtubated, left chest tube removed, and Deerfield-Suzi catheter removed since the study. Atelectasis at [...] e xtubated, left chest tube removed, and Deerfield-Suzi catheter removed since the study. Atelectasis at [...] Glucose 223 (H) 65 - 199 [facility] mg/dL [facility] Comment: Supplemental ranges: <140 [...] [facility]/ZIP Code Phon e Number [address] POCT Glucose (07/11/2017 11:55 AM EST) athologist Signature POC Glucose 176 65 - 199 [facility] mg/dL [facility] Comment: Supplemental ranges: <140 [...] [facility]/[place] [address] POCT Glucose (07/11/2017 7:53 AM EST) athologist Signature POC Glucose 189 65 - 199 [facility] mg/dL [facility] Comment: Supplemental ranges: <140 [...] [facility]/ZIP Code Phon e Number [address] POCT Glucose (07/11/2017 4:22 AM EST) athologist Signature POC Glucose 151 65 - 199 [facility] mg/dL [facility] Comment: Supplemental ranges: <140 [...] [facility]/ZIP Code Phon e Number [address] Potassium (07/11/2017 2:20 AM EST) athologist Signature Potassium 4.5 3.5 - 5.0 [facility] mmol/L [facility] Comment: Please note: ??Patients [...] [facility]/ZIP Code Phon e Number [address] POCT Glucose (07/11/2017 12:17 AM EST) athologist Signature POC Glucose 162 65 - 199 [place] mg/dL [facility] Comment: Supplemental ranges: <140 mg/dL before meals <180 mg/dL all other times of the day Specimen Anatomical Collection Method Collection Time Receive d Time (Source) Location / / Volume Laterality Blood specimen 07/11/2017 12:17 7 (specimen) AM EST 12:17 AM EST Yuan Webber MD POINT OF CARE TEST ORDERABLE S Performing Organization Address [facility]/ZIP Code Phon e Number [address] POCT Glucose (07/10/2017 8:47 PM EST) athologist Signature POC Glucose 191 65 - 199 [place] mg/dL [facility] Comment: Supplemental ranges: <140 [...] Medical Center/ZIP Code [place] [address] POCT Glucose (07/10/2017 4:06 PM EST) athologist Signature POC Glucose 131 65 - 199 [place] mg/dL [facility] Comment: Supplemental ranges: <140 mg/dL before meals <180 mg/dL all other times of the day Specimen Anatomical Collection Method Collection Time Receive d Time (Source) Location / / Volume Laterality Blood specimen 07/10/2017 4:06 PM 017 4:06 (specimen) EST PM EST Yuan Webber MD POINT OF CARE TEST ORDERABLE S Performing Organization Address City/State/ZIP Code Phon e Number [address] POCT Glucose (07/10/2017 3:08 PM EST) athologist Signature POC Glucose 151 65 - 199 [facility] mg[facility] Comment: Supplemental ranges: <140 mg/dL before meals <180 mg/dL all other times of the day Specimen Anatomical Collection Method Collection Time Receive d Time (Source) Location / / Volume Laterality Blood specimen 07/10/2017 3:08 PM 017 3:08 (specimen) EST PM EST Yuan Webber MD POINT OF CARE TEST ORDERABLE S Performing Organization Address City/State/ZIP Code Phon e Number [address] POCT Glucose (07/10/2017 2:25 PM EST) athologist Signature POC Glucose 146 65 - 199 [facility] mg/dL [facility] Comment: Supplemental ranges: <140 mg/dL before meals <180 mg/dL all other times of the day Specimen Anatomical Collection Method Collection Time Receive d Time (Source) Location / / Volume Laterality Blood specimen 07/10/2017 2:25 PM 017 2:25 (specimen) EST PM EST Yuan Webber MD POINT OF CARE TEST ORDERABLE S Performing Organization Address City/State/ZIP Code Phon e Number [address] POCT Glucose (07/10/2017 1:23 PM EST) athologist Signature POC Glucose 166 65 - 199 [place] mg/dL [facility] Comment: Supplemental ranges: <140 mg/dL before meals <180 mg/dL all other times of the day Specimen Anatomical Collection Method Collection Time Receive d Time (Source) Location / / Volume Laterality Blood specimen 07/10/2017 1:23 PM 017 1:23 (specimen) EST PM EST Yuan Webber MD POINT OF CARE TEST ORDERABLE S Performing Organization Address City/State/ZIP Code Phon e Number [address] POCT Glucose (07/10/2017 11:52 AM EST) P athologist Signature POC Glucose 157 65 - 199 [place] mg/dL [facility] Comment: Supplemental ranges: <140 mg/dL before meals <180 mg/dL all other times of the day Specimen Anatomical Collection Method Collection Time Receive d Time (Source) Location / / Volume Laterality Blood specimen 07/10/2017 11:52 7 (specimen) AM EST 11:52 AM EST Yuan Webber MD POINT OF CARE TEST ORDERABLE S Performing Organization Address City/State/ZIP Code Phon e Number [address] POCT Glucose (07/10/2017 11:01 AM EST) athologist Signature POC Glucose 158 65 - 199 [facility] mg/dL [facility] Comment: Supplemental ranges: <140 mg/dL before meals <180 mg/dL all other times of the day Specimen Anatomical Collection Method Collection Time Receive d Time (Source) Location / / Volume Laterality Blood specimen 07/10/2017 11:01 7 (specimen) AM EST 11:01 AM EST Yuan Webber MD POINT OF CARE TEST ORDERABLE S Performing Organization Address City/State/ZIP Code Phon e Number [address] POCT Glucose (07/10/2017 9:54 AM EST) athologist Signature POC Glucose 160 65 - 199 [place] mg/dL [facility] Comment: Supplemental ranges: <140 mg/dL before meals <180 mg/dL all other times of the day Specimen Anatomical Collection Method Collection Time Receive d Time (Source) Location / / Volume Laterality Blood specimen 07/10/2017 9:54 AM 017 9:54 (specimen) EST AM EST Yuan Webber MD POINT OF CARE TEST ORDERABLE S Performing Organization Address City/State/[place] [address] POCT Glucose (07/10/2017 8:58 AM EST) athologist Signature POC Glucose 183 65 - 199 [place] mg/dL [facility] Comment: Supplemental ranges: <140 mg/dL before meals <180 mg/dL all other times of the day Specimen Anatomical Collection Method Collection Time Receive d Time (Source) Location / / Volume Laterality Blood specimen 07/10/2017 8:58 AM 017 8:58 (specimen) EST AM EST Yuan Webber MD POINT OF CARE TEST ORDERABLE S Performing Organization Address City/State/ZIP Code Phon e Number [address] POCT Glucose (07/10/2017 8:01 AM EST) athologist Signature POC Glucose 173 65 - 199 [place] mg/dL [facility] Comment: Supplemental ranges: <140 mg/dL before meals <180 mg/dL all other times of the day Specimen Anatomical Collection Method Collection Time Receive d Time (Source) Location / / Volume Laterality Blood specimen 07/10/2017 8:01 AM 017 8:01 (specimen) EST AM EST Yuan Webber MD POINT OF CARE TEST ORDERABLE S Performing Organization Address City/State/ZIP Code Phon e Number [address] POCT Glucose (07/10/2017 7:05 AM EST) athologist Signature POC Glucose 166 65 - 199 [place] mg/dL [facility] Comment: Supplemental ranges: <140 mg/dL before meals <180 mg/dL all other times of the day Specimen Anatomical Collection Method Collection Time Receive d Time (Source) Location / / Volume Laterality Blood specimen 07/10/2017 7:05 AM 017 7:05 (specimen) EST AM EST Yuan Webber MD POINT OF CARE TEST ORDERABLE S Performing Organization Address City/State/ZIP Code Phon e Number [address] POCT Glucose (07/10/2017 6:00 AM EST) P athologist Signature POC Glucose 162 65 - 199 [facility] mg/dL [facility] Comment: Supplemental ranges: <140 mg/dL before meals <180 mg/dL all other times of the day Specimen Anatomical Collection Method Collection Time Receive d Time (Source) Location / / Volume Laterality Blood specimen 07/10/2017 6:00 AM 017 6:00 (specimen) EST AM EST Yuan Webber MD POINT OF CARE TEST ORDERABLE S Performing Organization Address City/State/[place] [address] (ABNORMAL) Differential, Automated (07/10/2017 4:28 AM EST) Patholo gist Method Time Signature Neutrophils % 87.9 % [facility] LABOR[facility]ORY Neutr Abs (ANC) 10.70 (H) 1.70 - [facility] 6.10 [facility] x10(3)/[facility] LABORATORY Lymphocytes % 3.9 % [facility] Lymphocytes Abs 0.5 (L) 0.9 - 3.2 [facility] x10(3)/[facility] LABORATORY Monocytes % 7.0 % [facility] Monocyte Abs 0.8 0.3 - 0.9 [facility] x10(3)/[facility] LABORATORY Eosinophils % 0.3 % [facility] Eosinophils Abs 0.0 0.0 - 0.4 [facility] x10(3)/[facility] LABORATORY Basophils % 0.2 % [facility] LAB[facility] Basophils Abs 0.0 0.0 - 0.1 [facility] x10(3)/[facility] LABORATORY Immature Gran % 0.70 % [place] [...] 0.08 (H) 0.00 - 0.04 x10(3)/[facility] LABORATORY Specimen Anatomical Collection Method Collection Time Receive d Time (Source) Location / / Volume Laterality Blood specimen 07/10/2017 4:28 AM 017 4:36 (specimen) EST AM EST Resulting Agency Comment Spec In Lab Yuan Webber MD HEMATOLOGY ORDERABLES Performing Organization Address City/State/[place] [address] (ABNORMAL) Hemogram (07/10/2017 4:28 AM EST) Analysis Performed At Patho logist Time Signature WBC 12.2 (H) 4.0 - 9.5 [facility] x10(3)/[facility] LABORATORY RBC 3.31 (L) 4.58 - [facility] 5.54 [facility] x10(6)/[facility] LABORATORY Hemoglobin 9.8 (L) 13.7 [facility] 16.5 gm/dL [facility]ORATORY Hematocrit 30.0 (L) 40.5 - [facility].5 % [facility] [facility] MCV 90.6 82.9 - [facility]1 [facility] LABORATORY MCH 29.6 27.5 - [facility] 32.[address] [facility] LABORATORY MCHC 32.7 32.0 - [facility] 35.7 gm/dL [facility] LABORATORY Platelets 135 (L) 145 - 357 [facility] x10(3)/[facility] LABORATORY RDWSD 50.8 (H) 36.0 - [facility] 45.0 [facility] LABORATORY RDWCV 15.4 (H) 11.4 - [facility] 13.8 % [facility] LABORATORY MPV 10.0 7.6 - 12.9 [facility] LABORATORY nRBC % Auto 0.0 % [facility] LABORATORY nRBC Abs Auto 0.000 0.000 - [facility] 0.000 [facility] x10(3)/[facility] LABORATORY Specimen Anatomical Collection Method Collection Time Receive d Time (Source) Location / / Volume Laterality Blood specimen 07/10/2017 4:28 AM 017 4:36 (specimen) EST AM EST Resulting Agency Comment Spec In Lab Yuan Webber MD HEMATOLOGY ORDERABLES Performing Organization Address City/[facility]/[place] [address] (ABNORMAL) Basic Metabolic Panel (non-fasting) (07/10/2017 4:28 AM EST) P athologist Signature Glucose Lvl 178 65 - 199 [facility] mg/dL [facility] LABORATORY [...] [facility] Estimated GFR 60 >=60 [facility] LABORATORY Comment: The reported eGFR should be multiplied b y 1.2 for patients. The MDRD is not an appropriate measure o f renal function for patients with body mass extremes or in patients with acute kidney failure. http://[employer]/DHnkdep http://[employer]/DHMCnkf Specimen Anatomical Collection Method Collection Time Receive d Time (Source) Location / / Volume Laterality Blood specimen 07/10/2017 4:28 AM 017 4:36 (specimen) EST AM EST Resulting Agency Comment Spec In Lab Yuan Webber MD CHEMISTRY ORDERABLES Performing Organization Address City/[facility]/[place] [address] POCT Glucose (07/10/2017 4:26 AM EST) P athologist Signature POC Glucose 176 65 - 199 [facility] mg/dL [facility] LABORATORY Comment: Supplemental ranges: <140 mg/dL before meals <180 mg/dL all other times of the day Specimen Anatomical Collection Method Collection Time Receive d Time (Source) Location / / Volume Laterality Blood specimen 07/10/2017 4:26 AM 017 4:26 (specimen) EST AM EST Yuan Webber MD POINT OF CARE TEST ORDERABLE S Performing Organization Address City/State/ZIP [place] [address] (ABNORMAL) POCT Glucose (07/10/2017 3:06 AM EST) athologist Signature POC Glucose 204 (H) 65 - 199 [facility] mg/dL [facility] LABORATORY Comment: Supplemental ranges: <140 mg/dL before meals <180 mg/dL all other times of the day Specimen Anatomical Collection Method Collection Time Receive d Time (Source) Location / / Volume Laterality Blood specimen 07/10/2017 3:06 AM 017 3:06 (specimen) EST AM EST Yuan Webber MD POINT OF CARE TEST ORDERABLE S Performing Organization Address City/State/ZIP Code [place] [address] (ABNORMAL) POCT Glucose (07/10/2017 2:10 AM EST) P athologist Signature POC Glucose 203 (H) 65 - 199 [place] mg/dL [facility] LABORATORY Comment: Supplemental ranges: <140 mg/dL before meals <180 mg/dL all other times of the day Specimen Anatomical Collection Method Collection Time Receive d Time (Source) Location / / Volume Laterality Blood specimen 07/10/2017 2:10 AM 017 2:10 (specimen) EST AM EST Yuan Webber MD POINT OF CARE TEST ORDERABLE S Performing Organization Address City/State/ZIP Code Phon e Number [address] POCT Glucose (07/10/2017 1:09 AM EST) P athologist Signature POC Glucose 196 65 - 199 [facility] mg/dL [facility] LABORATORY Comment: Supplemental ranges: <140 mg/dL before meals <180 mg/dL all other times of the day Specimen Anatomical Collection Method Collection Time Receive d Time (Source) Location / / Volume Laterality Blood specimen 07/10/2017 1:09 AM 017 1:09 (specimen) EST AM EST Yuan Webber MD POINT OF CARE TEST ORDERABLE S Performing Organization Address City/State/ZIP Code Phon e Number [address] POCT Glucose (07/10/2017 12:10 AM EST) athologist Signature POC Glucose 173 65 - 199 [facility] mg/dL [facility] LABORATORY Comment: Supplemental ranges: <140 mg/dL before meals <180 mg/dL all other times of the day Specimen Anatomical Collection Method Collection Time Receive d Time (Source) Location / / Volume Laterality Blood specimen 07/10/2017 12:10 7 (specimen) AM EST 12:10 AM EST Yuan Webber MD POINT OF CARE TEST ORDERABLE S Performing Organization Address City/State/ZIP Code Phon e Number [address] POCT Glucose (07/09/2017 11:01 PM EST) athologist Signature POC Glucose 140 65 - 199 [place] mg/dL [facility] LABORATORY Comment: Supplemental ranges: <140 mg/dL before meals <180 mg/dL all other times of the day Specimen Anatomical Collection Method Collection Time Receive d Time (Source) Location / / Volume Laterality Blood specimen 07/09/2017 11:01 7 (specimen) PM EST 11:01 PM EST Yuan Webber MD POINT OF CARE TEST ORDERABLE S Performing Organization Address City/State/ZIP Code Phon e Number [address] POCT Glucose (07/09/2017 10:05 PM EST) athologist Signature POC Glucose 144 65 - 199 [place] mg/dL [facility] LABORATORY Comment: Supplemental ranges: <140 mg/dL before meals <180 mg/dL all other times of the day Specimen Anatomical Collection Method Collection Time Receive d Time (Source) Location / / Volume Laterality Blood specimen 07/09/2017 10:05 7 (specimen) PM EST 10:05 PM EST Yuan Webber MD POINT OF CARE TEST ORDERABLE S Performing Organization Address City/State/ZIP Code Phon e Number [address] POCT Glucose (07/09/2017 9:31 PM EST) athologist Signature POC Glucose 121 65 - 199 [facility] mg/dL [facility] LABORATORY Comment: Supplemental ranges: <140 mg/dL before meals <180 mg/dL all other times of the day Specimen Anatomical Collection Method Collection Time Receive d Time (Source) Location / / Volume Laterality Blood specimen 07/09/2017 9:31 PM 017 9:31 (specimen) EST PM EST Yuan Webber MD POINT OF CARE TEST ORDERABLE S Performing Organization Address City/State/ZIP Code Phon e Number [address] POCT Glucose (07/09/2017 9:03 PM EST) athologist Signature POC Glucose 98 65 - 199 [place] mg/dL [facility] LABORATORY Comment: Supplemental ranges: <140 mg/dL before meals <180 mg/dL all other times of the day Specimen Anatomical Collection Method Collection Time Receive d Time (Source) Location / / Volume Laterality Blood specimen 07/09/2017 9:03 PM 017 9:03 (specimen) EST PM EST Yuan Webber MD POINT OF CARE TEST ORDERABLE S Performing Organization Address City/State/[place] [address] POCT Glucose (07/09/2017 8:09 PM EST) athologist Signature POC Glucose 117 65 - 199 [place] mg/dL [facility] LABORATORY Comment: Supplemental ranges: <140 mg/dL before meals <180 mg/dL all other times of the day Specimen Anatomical Collection Method Collection Time Receive d Time (Source) Location / / Volume Laterality Blood specimen 07/09/2017 8:09 PM 017 8:09 (specimen) EST PM EST Yuan Webber MD POINT OF CARE TEST ORDERABLE S Performing Organization Address City/State/ZIP Code Phon e Number [address] POCT Glucose (07/09/2017 5:40 PM EST) athologist Signature POC Glucose 155 65 - 199 [place] mg/dL [facility] LABORATORY Comment: Supplemental ranges: <140 mg/dL before meals <180 mg/dL all other times of the day Specimen Anatomical Collection Method Collection Time Receive d Time (Source) Location / / Volume Laterality Blood specimen 07/09/2017 5:40 PM 017 5:40 (specimen) EST PM EST Yuan Webber MD POINT OF CARE TEST ORDERABLE S Performing Organization Address City/State/ZIP Code Phon e Number [address] POCT Glucose (07/09/2017 4:24 PM EST) athologist Signature POC Glucose 164 65 - 199 [place] mg/dL [facility] LABORATORY Comment: Supplemental ranges: <140 mg/dL before meals <180 mg/dL all other times of the day Specimen Anatomical Collection Method Collection Time Receive d Time (Source) Location / / Volume Laterality Blood specimen 07/09/2017 4:24 PM 017 4:24 (specimen) EST PM EST Yuan Webber MD POINT OF CARE TEST ORDERABLE S Performing Organization Address City/State/ZIP Code Phon e Number [address] POCT Glucose (07/09/2017 3:19 PM EST) athologist Signature POC Glucose 166 65 - 199 [place] mg/dL [facility] LABORATORY Comment: Supplemental ranges: <140 mg/dL before meals <180 mg/dL all other times of the day Specimen Anatomical Collection Method Collection Time Receive d Time (Source) Location / / Volume Laterality Blood specimen 07/09/2017 3:19 PM 017 3:19 (specimen) EST PM EST Yuan Webber MD POINT OF CARE TEST ORDERABLE S Performing Organization Address City/State/ZIP Code Phon e Number [address] POCT Glucose (07/09/2017 2:26 PM EST) athologist Signature POC Glucose 179 65 - 199 [facility] mg/dL [facility] LABORATORY Comment: Supplemental ranges: <140 mg/dL before meals <180 mg/dL all other times of the day Specimen Anatomical Collection Method Collection Time Receive d Time (Source) Location / / Volume Laterality Blood specimen 07/09/2017 2:26 PM 017 2:26 (specimen) EST PM EST Yuan Webber MD POINT OF CARE TEST ORDERABLE S Performing Organization Address City/State/[place] [address] (ABNORMAL) POCT Glucose (07/09/2017 1:29 PM EST) athologist Signature POC Glucose 210 (H) 65 - 199 [facility] mg[facility]dL [facility] LAB[facility]ATORY Comment: Supplemental ranges: <140 mg/dL before meals <180 mg/dL all other times of the day Specimen Anatomical Collection Method Collection Time Receive d Time (Source) Location / / Volume Laterality Blood specimen 07/09/2017 1:29 PM 017 1:29 (specimen) EST PM EST Yuan Webber MD POINT OF CARE TEST ORDERABLE S Performing Organization Address City/State/[place] [address] POCT Glucose (07/09/2017 12:20 PM EST) P athologist Signature POC Glucose 172 65 - 199 [place] mg/dL [facility] LABORATORY Comment: Supplemental ranges: <140 mg/dL before meals <180 mg/dL all other times of the day Specimen Anatomical Collection Method Collection Time Receive d Time (Source) Location / / Volume Laterality Blood specimen 07/09/2017 12:20 7 (specimen) PM EST 12:20 PM EST Yuan Webber MD POINT OF CARE TEST ORDERABLE S Performing Organization Address City/State/ZIP Code Phon e Number [address] POCT Glucose (07/09/2017 11:24 AM EST) athologist Signature POC Glucose 156 65 - 199 [place] mg/dL [facility] LABORATORY Comment: Supplemental ranges: <140 mg/dL before meals <180 mg/dL all other times of the day Specimen Anatomical Collection Method Collection Time Receive d Time (Source) Location / / Volume Laterality Blood specimen 07/09/2017 11:24 7 (specimen) AM EST 11:24 AM EST Yuan Webber MD POINT OF CARE TEST ORDERABLE S Performing Organization Address City/State/ZIP Code Phon e Number [address] POCT Glucose (07/09/2017 11:11 AM EST) athologist Signature POC Glucose 172 65 - 199 [place] mg/dL [facility] LABORATORY Comment: Supplemental ranges: <140 mg/dL before meals <180 mg/dL all other times of the day Specimen Anatomical Collection Method Collection Time Receive d Time (Source) Location / / Volume Laterality Blood specimen 07/09/2017 11:11 7 (specimen) AM EST 11:11 AM EST Yuan Webber MD POINT OF CARE TEST ORDERABLE S Performing Organization Address City/State/ZIP Code Phon e Number [address] POCT Glucose (07/09/2017 10:08 AM EST) athologist Signature POC Glucose 176 65 - 199 [place] mg/dL [facility] LABORATORY Comment: Supplemental ranges: <140 mg/dL before meals <180 mg/dL all other times of the day Specimen Anatomical Collection Method Collection Time Receive d Time (Source) Location / / Volume Laterality Blood specimen 07/09/2017 10:08 7 (specimen) AM EST 10:08 AM EST Yuan Webber MD POINT OF CARE TEST ORDERABLE S Performing Organization Address City/State/[place] [address] POCT Glucose (07/09/2017 8:02 AM EST) P athologist Signature POC Glucose 178 65 - 199 [facility] mg/dL [facility] LABORATORY Comment: Supplemental ranges: <140 mg/dL before meals <180 mg/dL all other times of the day Specimen Anatomical Collection Method Collection Time Receive d Time (Source) Location / / Volume Laterality Blood specimen 07/09/2017 8:02 AM 017 8:02 (specimen) EST AM EST Yuan Webber MD POINT OF CARE TEST ORDERABLE S Performing Organization Address City/State/[place] [address] (ABNORMAL) BLOOD GAS 2 ARTERIAL (07/09/2017 5:37 AM EST) Analysis Performed At Patho logist Time Signature pH Art 7.36 7.35 - [facility] 7.45 [facility] LABORATORY pCO2 Art 38 35 - 45 [facility] mmHg [facility] LABORATORY pO2 Art 79 (L) 85 - 104 [facility] mmHg [facility] LABORATORY HCO3 Art 20.9 20.0 - [facility] 26.0 [facility] mmol/L [facility] LABORATORY BE Art -4.6 (L) -3.0 - 3.0 [facility] mmol/L [facility] LABORATORY Hgb Blood Gas 10.5 (L) 13.7 - [facility] 16.5 gm/dL [facility] LABORATORY O2HB Art 93.8 (L) 94.0 - [facility] 97.0 % [facility] LABORATORY COHB Art 0.3 % [facility] FIO2 Art 40 % [facility] LABORATORY PF Ratio Art 198 [facility] LABORATORY Specimen Anatomical Collection Method Collection Time Receive d Time (Source) Location / / Volume Laterality Blood specimen 07/09/2017 5:37 AM 017 5:37 (specimen) EST AM EST Yuan Webber MD CHEMISTRY ORDERABLES Performing Organization Address City/State/[place] [address] POCT Glucose (07/09/2017 3:27 AM EST) P athologist Signature POC Glucose 192 65 - 199 [facility] mg/dL [facility] LABORATORY Comment: Supplemental ranges: <140 mg/dL before meals <180 mg/dL all other times of the day Specimen Anatomical Collection Method Collection Time Receive d Time (Source) Location / / Volume Laterality Blood specimen 07/09/2017 3:27 AM 017 3:27 (specimen) EST AM EST Yuan Webber MD POINT OF CARE TEST ORDERABLE S Performing Organization Address City/State/[place] [address] (ABNORMAL) Basic Metabolic Panel (non-fasting) (07/09/2017 2:30 AM EST) P athologist Signature Glucose Lvl 179 65 - 199 [facility] mg/dL [facility] LABORATORY [...] or in patients with acute kidney failure. http://[employer]/DHnkdep http://[employer]/DHMCnkf Specimen Anatomical Collection Method Collection Time Receive d Time (Source) Location / / Volume Laterality Blood specimen Venous Draw / 07/09/2017 2:30 AM 2016 2:42 (specimen) Unknown EST AM EST Resulting Agency Comment Spec In Lab Yuan Webber MD CHEMISTRY ORDERABLES Performing Organization Address City/State/[place] [address] (ABNORMAL) Potassium (07/09/2017 2:30 AM EST) P athologist Signature Potassium 5.1 (H) 3.5 - 5.0 [place] mmol/L [facility] LABORATORY Comment: Please note: ??[facility]/[place] [address] (ABNORMAL) Hemogram (07/09/2017 2:30 AM EST) Analysis Performed At Patho logist Time Signature WBC 12.5 (H) 4.0 - 9.5 [place] [facility] x10(3)/[facility] LABORATORY RBC 3.38 (L) 4.58 - [place] 5.54 [facility] x10(6)/[facility] LABORATORY Hemoglobin 10.1 (L) 13.7 - [place] 16.5 gm/dL [facility] LABORATORY Hematocrit 30.3 (L) 40.5 - [place] [facility] 48.5 % [facility] LABORATORY MCV 89.6 82.9 - [place] 93.1 [facility] LABORATORY MCH 29.9 27.5 - [place] 32.[address] [facility] LABORATORY MCHC 33.3 32.0 - [place] [facility] 35.7 gm/dL [facility] LABORATORY Platelets 127 (L) 145 - 357 [place] [facility] x10(3)/[facility] LABORATORY RDWSD 49.3 (H) 36.0 - [place] [facility] 45.0 [facility] LABORATORY RDWCV 15.2 (H) 11.4 - [place] [facility] 13.8 % [facility] LABORATORY MPV 9.9 7.6 - 12.9 [facility] LABORATORY nRBC % Auto 0.0 % [facility] LABORATORY nRBC Abs Auto 0.000 0.000 - [place] 0.000 [facility] x10(3)/[facility] LABORATORY Specimen Anatomical Collection Method Collection Time Receive d Time (Source) Location / / Volume Laterality Blood specimen 07/09/2017 2:30 AM 017 2:41 (specimen) EST AM EST Resulting Agency Comment Spec In Lab Yuan Webber MD HEMATOLOGY ORDERABLES Performing Organization Address City/State/ZIP Code Phon e Number [address] POCT Glucose (07/09/2017 2:10 AM EST) athologist Signature POC Glucose 169 65 - 199 [facility] mg/dL [facility] LABORATORY Comment: Supplemental ranges: <140 mg/dL before meals <180 mg/dL all other times of the day Specimen Anatomical Collection Method Collection Time Receive d Time (Source) Location / / Volume Laterality Blood specimen 07/09/2017 2:10 AM 017 2:10 (specimen) EST AM EST Yuan Webber MD POINT OF CARE TEST ORDERABLE S Performing Organization Address City/State/ZIP Code Phon e Number [address] POCT Glucose (07/09/2017 1:01 AM EST) athologist Signature POC Glucose 173 65 - 199 [facility] LAB[facility]ORY Comment: Supplemental ranges: <140 mg/dL before meals <180 mg/dL all other times of the day Specimen Anatomical Collection Method Collection Time Receive d Time (Source) Location / / Volume Laterality Blood specimen 07/09/2017 1:01 AM 017 1:01 (specimen) EST AM EST Yuan Webber MD POINT OF CARE TEST ORDERABLE S Performing Organization Address City/State/ZIP Code Phon e Number [address] Blood culture (07/09/2017 12:40 AM EST) [facility] [employer] Method Time Signature Blood Culture No growth [place] at [address] [facility] LABORATORY Specimen Anatomical Collection Method Collection Time Receive d Time (Source) Location / / Volume Laterality Blood specimen STRUCTURE OF RIGHT 07/09/2017 12:40 3:58 (specimen) UPPER LIMB / AM EST AM EST Unknown Resulting Agency Comment Spec In Lab uYan Webber MD MICROBIOLOGY - BLOOD ORDERAB LES Performing Organization Address City/[facility]/ZIP Code Phon e Number [address] Blood culture (07/09/2017 12:30 AM EST) [facility] [employer] Method Time Signature Blood Culture No growth [place] at [address] [facility] LABORATORY Specimen Anatomical Collection Method Collection Time Receive d Time (Source) Location / / Volume Laterality Blood specimen STRUCTURE OF LEFT 07/09/2017 12:30 06/25 3:59 (specimen) UPPER LIMB / AM EST AM EST Unknown Resulting Agency Comment Spec In Lab Yuan Webber MD MICROBIOLOGY - BLOOD ORDERAB LES Performing Organization Address City/[facility]/ZIP Code Phon e Number [address] (ABNORMAL) Urinalysis Microscopic Exam (07/09/2017 12:05 AM EST) Analysis Performed At Patho logist Time Signature RBC UA 32 (H) 0 - 3 /HPF [facility] LABORATORY WBC UA 5 (H) 0 - 3 /HPF [facility] LABORATORY Squam Epith UA <1 <=4 /HPF [facility] LABORATORY Hyaline Cast 17 (H) 0 - 2 /LPF [facility] LABORATORY Gran Cast UA 1 (H) <=0 /LPF [facility] LABORATORY Uric Ac Bianca Rare (A) None /HPF [facility] LABORATORY Specimen (Source) Anatomical Collection Method Collection Time Re ceived Time Location / / Volume Laterality Urine specimen 07/09/2017 12:05 7 obtained via AM EST 12:39 AM EST indwelling urinary catheter (specimen) Resulting Agency Comment Spec In Lab Yuan Webber MD URINE ORDERABLES Performing Organization Address City/State/ZIP Code Phon e Number [address] (ABNORMAL) Urinalysis with reflex Culture (07/09/2017 12:05 AM EST) Patholo gist Method Time Signature Glucose UA Negative Negative [facility] mg/dL [facility] LABORATORY Protein UA 30 (A) Negative [facility] mg/dL [facility] LABORATORY Bilirubin UA Negative Negative [facility] mg/dL [facility] LABORATORY Comment: Clinical correlation required [...] [facility] Nitrite UA Negative Negative [facility] LABORATORY Leukocytes UA Negative Negative [facility] LABORATORY Appearance UA Hazy (A) Clear [facility] LABORATORY Spec [place] UA 1.025 1.002 - 1.030 [facility] LABORATORY Color UA Yellow Yellow [facility] LABORATORY Culture Reflexed No [facility] LABORATORY Specimen (Source) Anatomical Collection Method Collection Time Re ceived Time Location / / Volume Laterality Urine specimen 07/09/2017 12:05 7 obtained via AM EST 12:39 AM EST indwelling urinary catheter (specimen) Resulting Agency Comment Spec In Lab Yuan Webber MD URINE ORDERABLES Performing Organization Address City/State/ZIP Code Phon e Number [place] [id number] [facility] LABORATORY Drive POCT Glucose (07/08/2017 11:01 PM EST) P athologist Signature POC Glucose 191 65 - 199 [facility] mg/dL [facility] LABORATORY Comment: Supplemental ranges: <140 mg/dL before meals <180 mg/dL all other times of the day Specimen Anatomical Collection Method Collection Time Receive d Time (Source) Location / / Volume Laterality Blood specimen 07/08/2017 11:01 7 (specimen) PM EST 11:01 PM EST Yuan Webber MD POINT OF CARE TEST ORDERABLE S Performing Organization Address City/State/[place] [address] POCT Glucose (07/08/2017 10:04 PM EST) P athologist Signature POC Glucose 198 65 - 199 [facility] mg[facility]dL [facility] LAB[facility]ORY Comment: Supplemental ranges: <140 mg/dL before meals <180 mg/dL all other times of the day Specimen Anatomical Collection Method Collection Time Receive d Time (Source) Location / / Volume Laterality Blood specimen 07/08/2017 10:04 7 (specimen) PM EST 10:04 PM EST Yuan Webber MD POINT OF CARE TEST ORDERABLE S Performing Organization Address City/State/[place] [address] Prepare Albumin 5% in [...] Address City/State/ZIP Code Phon e Number [phone] [address] POCT Glucose (07/08/2017 8:28 PM EST) P athologist Signature POC Glucose 195 65 - 199 [facility]dL [facility] LAB[facility]ATORY Comment: Supplemental ranges: <140 [...] [facility]/[place] [address] (ABNORMAL) POCT Glucose (07/08/2017 7:13 PM EST) P athologist Signature POC Glucose 220 (H) 65 - 199 [facility] mg[facility]dL [facility] LAB[facility]ORY Comment: Supplemental ranges: <140 [...] [facility]/[place] [address] POCT Glucose (07/08/2017 5:04 PM EST) P athologist Signature POC Glucose 147 65 - 199 [facility] mg/dL [facility] LABOR[facility]ORY Comment: Supplemental ranges: <140 mg/dL before meals <180 mg/dL all other times of the day Specimen Anatomical Collection Method Collection Time Receive d Time (Source) Location / / Volume Laterality Blood specimen 07/08/2017 5:04 PM 017 5:04 (specimen) EST PM EST Yuan Webber MD POINT OF CARE TEST ORDERABLE S Performing Organization Address City/State/[place] [address] (ABNORMAL) BLOOD GAS 2 ARTERIAL (07/08/2017 4:13 PM EST) Analysis Performed At Patho logist Time Signature pH Art 7.38 7.35 - [facility] 7.45 [facility] LABORATORY pCO2 Art 36 35 - 45 [facility] LABORATORY pO2 Art 91 85 - 104 [facility] LABORATORY HCO3 Art 20.9 20.0 - [facility] 26.0 [facility] mmol/L [facility] LABORATORY BE Art -4.2 (L) -3.0 - 3.0 [facility] mmol/L [facility] LABORATORY Hgb Blood Gas 11.7 (L) 13.7 - [facility] 16.5 gm/dL [facility] LABORATORY O2HB Art 95.1 94.0 - [facility] 97.0 % [facility] LABORATORY COHB Art 0.6 % [facility] FIO2 Art 40 % [facility] LABORATORY PF Ratio Art 228 [facility] LABORATORY Specimen Anatomical Collection Method Collection Time Receive d Time (Source) Location / / Volume Laterality Blood specimen 07/08/2017 4:13 PM 017 4:13 (specimen) EST PM EST Yuan Wbeber MD CHEMISTRY ORDERABLES Performing Organization Address City/State/[place] [address] POCT Glucose (07/08/2017 4:01 PM EST) athologist Signature POC Glucose 148 65 - 199 [facility] mg/dL [facility] LABORATORY Comment: Supplemental ranges: <140 mg/dL before meals <180 mg/dL all other times of the day Specimen Anatomical Collection Method Collection Time Receive d Time (Source) Location / / Volume Laterality Blood specimen 07/08/2017 4:01 PM 017 4:01 (specimen) EST PM EST Yuan Webber MD POINT OF CARE TEST ORDERABLE S Performing Organization Address City/State/ZIP Code Phon e Number [address] POCT Glucose (07/08/2017 3:21 PM EST) athologist Signature POC Glucose 118 65 - 199 [place] [facility] mg/dL [facility] LABORATORY Comment: Supplemental ranges: <140 [...] [facility]/ZIP Code Phon e Number [address] POCT Glucose (07/08/2017 2:01 PM EST) athologist Signature POC Glucose 129 65 - 199 [facility] mg/dL [facility] LABORATORY Comment: Supplemental ranges: <140 mg/dL before meals <180 mg/dL all other times of the day Specimen Anatomical Collection Method Collection Time Receive d Time (Source) Location / / Volume Laterality Blood specimen 07/08/2017 2:01 PM 017 2:01 (specimen) EST PM EST Yuan Webber MD POINT OF CARE TEST ORDERABLE S Performing Organization Address City/State/[place] [address] POCT Glucose (07/08/2017 11:53 AM EST) athologist Signature POC Glucose 156 65 - 199 [facility] mg/dL [facility] LABORATORY Comment: Supplemental ranges: <140 mg/dL before meals <180 mg/dL all other times of the day Specimen Anatomical Collection Method Collection Time Receive d Time (Source) Location / / Volume Laterality Blood specimen 07/08/2017 11:53 7 (specimen) AM EST 11:53 AM EST Yuan Webber MD POINT OF CARE TEST ORDERABLE S Performing Organization Address City/State/ZIP Code Phon e Number [address] POCT Glucose (07/08/2017 11:04 AM EST) athologist Signature POC Glucose 181 65 - 199 [facility] mg[facility]dL [facility] LABORATORY Comment: Supplemental ranges: <140 [...] [facility] [address] (ABNORMAL) POCT Glucose (07/08/2017 9:24 AM EST) athologist Signature POC Glucose 203 (H) 65 - 199 [facility] mg/dL [facility] LABORATORY Comment: Supplemental ranges: <140 mg/dL before meals <180 mg/dL all other times of the day Specimen Anatomical Collection Method Collection Time Receive d Time (Source) Location / / Volume Laterality Blood specimen 07/08/2017 9:24 AM 017 9:24 (specimen) EST AM EST Yuan Webber MD POINT OF CARE TEST ORDERABLE S Performing Organization Address City/State/ZIP Code Phon e Number [address] APTT (07/08/2017 8:40 AM [...] Organization Address City/State/[place] [address] (ABNORMAL) Prothrombin Time (07/08/2017 [...] Organization Address City/State/[place] [address] (ABNORMAL) POCT Glucose (07/08/2017 7:38 AM EST) athologist Signature POC Glucose 232 (H) 65 - 199 [facility] mg/dL [facility] LABORATORY Comment: Supplemental ranges: <140 [...] [facility] [address] (ABNORMAL) POCT Glucose (07/08/2017 7:07 AM EST) P athologist Signature POC Glucose 234 (H) 65 - 199 [facility] mg/dL [facility] LABORATORY Comment: Supplemental ranges: <140 [...] [facility] [address] (ABNORMAL) POCT Glucose (07/08/2017 6:04 AM EST) P athologist Signature POC Glucose 225 (H) 65 - 199 [facility] mg/dL [facility] LABORATORY Comment: Supplemental ranges: <140 mg/dL before meals <180 mg/dL all other times of the day Specimen Anatomical Collection Method Collection Time Receive d Time (Source) Location / / Volume Laterality Blood specimen 07/08/2017 6:04 AM 017 6:04 (specimen) EST AM EST Yuan Webber MD POINT OF CARE TEST ORDERABLE S Performing Organization Address City/State/[place] [address] (ABNORMAL) POCT Glucose (07/08/2017 5:31 AM EST) P athologist Signature POC Glucose 216 (H) 65 - 199 [facility] mg/dL [facility] LABORATORY Comment: Supplemental ranges: <140 mg/dL before meals <180 mg/dL all other times of the day Specimen Anatomical Collection Method Collection Time Receive d Time (Source) Location / / Volume Laterality Blood specimen 07/08/2017 5:31 AM 017 5:31 (specimen) EST AM EST Yuan Webber MD POINT OF CARE TEST ORDERABLE S Performing Organization Address City/State/[place] [address] (ABNORMAL) POCT Glucose (07/08/2017 4:52 AM EST) P athologist Signature POC Glucose 257 (H) 65 - 199 [facility] mg/dL [facility] LABORATORY Comment: Supplemental ranges: <140 [...] [facility]/[place] [address] (ABNORMAL) BLOOD GAS 2 ARTERIAL (07/08/2017 4:04 AM EST) Analysis Performed At Patho logist Time Signature pH Art 7.30 (L) 7.35 - [facility] 7.45 [facility] LABORATORY pCO2 Art 41 35 - 45 [facility] mmHg [facility] LABORATORY pO2 Art 83 (L) 85 - 104 [facility] LABORATORY HCO3 Art 19.6 (L) 20.0 - [facility] 26.0 [facility] mmol/L HOSPITAL LABORATORY BE Art -6.8 (L) -3.0 - 3.0 [facility] mmol/L [facility] LABORATORY Hgb Blood Gas 12.2 (L) 13.7 - [facility] 16.5 gm/dL [facility] LABORATORY O2HB Art 93.5 (L) 94.0 - [facility] 97.0 % [facility] LABORATORY COHB Art 0.4 % [facility] [...] mmol/L [facility] LABORATORY Comment: Noted by instrument repairer. FIO2 Art 40 % [facility] LABORATORY PF Ratio Art 208 [facility] LABORATORY Specimen Anatomical Collection Method Collection Time Receive d Time (Source) Location / / Volume Laterality Blood specimen 07/08/2017 4:04 AM 017 4:04 (specimen) EST AM EST Daphne Shahid MD CHEMISTRY ORDERABLES Performing Organization Address City/[facility]/[place] [address] Scan, Peripheral Blood (07/08/2017 [...] [facility]/[place] [address] (ABNORMAL) Differential, Automated (07/08/2017 4:00 AM EST) [facility] Method Time Signature Neutrophils % 85.4 % [facility] LABORATORY Neutr Abs (ANC) 16.07 (H) 1.70 - [facility] 6.10 [facility] x10(3)/[facility] L LABORATORY Lymphocytes % 3.5 % [facility] LABORATORY Lymphocytes Abs 0.6 (L) 0.9 - 3.2 [facility] x10(3)/[facility] LABORATORY Monocytes % 10.4 % [facility] LABORATORY Monocyte Abs 2.0 (H) 0.3 - 0.9 [facility] x10(3)/[facility] LABORATORY Eosinophils % 0.0 % [facility] LABORATORY Eosinophils Abs 0.0 0.0 - 0.4 [facility] x10(3)/[facility] LABORATORY Basophils % 0.1 % [facility] LABORATORY Basophils Abs 0.0 0.0 - 0.1 [facility] x10(3)/[facility] LABORATORY Immature Gran % 0.60 % [place] [...] 0.12 (H) 0.00 - 0.04 x10(3)/[facility] LABORATORY Specimen Anatomical Collection Method Collection Time Receive d Time (Source) Location / / Volume Laterality Blood specimen 07/08/2017 4:00 AM 017 4:09 (specimen) EST AM EST Resulting Agency Comment Spec In Lab Yuan Webber MD HEMATOLOGY ORDERABLES Performing Organization Address City/State/[place] [address] (ABNORMAL) Hemogram (07/08/2017 4:00 AM EST) Analysis Performed At Patho logist Time Signature WBC 18.8 (H) 4.0 - 9.5 [facility] x[facility](3)/[facility] LABORATORY RBC 4.00 (L) 4.58 - [facility] 5.54 [facility] x10(6)/[facility] LABORATORY Hemoglobin 11.9 (L) 13.7 - [facility] 16.5 gm/dL [facility] LABORATORY Hematocrit 35.9 (L) 40.5 - [facility] 48.5 % [facility] LABORATORY MCV 89.8 82.9 - [facility] 93.1 [facility] LABORATORY MCH 29.8 27.5 - [place] [facility] 32.[address] [facility] LABORATORY MCHC 33.1 32.0 - [facility] 35.7 gm/dL [facility] LABORATORY Platelets 232 145 - 357 [facility] x10(3)/[facility] LABORATORY RDWSD 47.6 (H) 36.0 - [facility] 45.0 [facility] LABORATORY RDWCV 14.5 (H) 11.4 - [place] [facility] 13.8 % [facility] LABORATORY MPV 9.5 7.6 - 12.9 [facility] nRBC % Auto 0.0 % [facility] LABORATORY nRBC Abs Auto 0.000 0.000 - [place] [facility] 0.000 [facility] x10(3)/[facility] LABORATORY Specimen Anatomical Collection Method Collection Time Receive d Time (Source) Location / / Volume Laterality Blood specimen 07/08/2017 4:00 AM 017 4:09 (specimen) EST AM EST Resulting Agency Comment Spec In Lab Yuan Webber MD HEMATOLOGY ORDERABLES Performing Organization Address City/State/[place] [address] (ABNORMAL) Electrolytes panel (07/08/2017 4:00 AM EST) P athologist Signature Sodium 139 135 - 145 [facility] mmol/L [facility] LABORATORY Potassium 4.7 3.5 - 5.0 [facility] mmol/L [facility] LABORATORY Comment: result rechecked-[id number] [...] Address City/State/[place] [address] (ABNORMAL) Cardiac Enzymes (LEB/CGP) (07/08/2017 4:00 AM EST) P athologist Signature Troponin-T 1.88 (H) 0.00 - [facility] 0.00 ng/mL [facility] LABORATORY Comment: The 99th percentile [...] additional sample may be indicated. Reference: Third Burton Definition of Myocardial Infarction. Journal of the [place] [employer] 2012;60:1581-98 CK, Total [...] [facility]/ZIP Code Phon e Number [address] (ABNORMAL) Glucose, fasting (07/08/2017 4:00 AM EST) athologist Signature Glucose 287 (H) 65 - 99 [facility] Fasting mg/dL [facility] LABORATORY Comment: ?Fasting* Glucose Interpretive [...] of Diabetes Mellitus, Position Statement from the [place] [employer]. ??Diabete s Care, Volume 33, Supplement 1, Jul 2009 Specimen Anatomical Collection Method Collection Time Receive d Time (Source) Location / / Volume Laterality Blood specimen 07/08/2017 4:00 AM 017 4:09 (specimen) EST AM EST Resulting Agency Comment Spec In Lab Yuan Webber MD CHEMISTRY ORDERABLES Performing Organization Address City/[facility]/ZIP [facility] [place] [address] (ABNORMAL) Creatinine (07/08/2017 4:00 AM EST) Analysis Performed At Patho logist Time Signature Creatinine 1.55 (H) 0.80 - [facility] 1.50 mg/dL [facility] LABORATORY Estimated GFR 44 (L) >=60 [facility] LABORATORY Comment: The reported eGFR should be multiplied b y 1.2 for patients. The MDRD is not an appropriate measure o f renal function for patients with body mass extremes or in patients with acute kidney failure. http://[employer]/DHnkdep http://[employer]/DHMCnkf Specimen Anatomical Collection Method Collection Time Receive d Time (Source) Location / / Volume Laterality Blood specimen 07/08/2017 4:00 AM 017 4:09 (specimen) EST AM EST Resulting Agency Comment Spec In Lab Yuan Webber MD CHEMISTRY ORDERABLES Performing Organization Address City/[facility] Phon e Number [address] BUN (07/08/2017 4:00 AM EST) P athologist Signature BUN 16 10 - 20 [facility] mg/dL [facility] LABORATORY Specimen Anatomical Collection Method Collection Time Receive d Time (Source) Location / / Volume Laterality Blood specimen 07/08/2017 4:00 AM 017 4:09 (specimen) EST AM EST Resulting Agency Comment Spec In Lab Yuan Webber MD CHEMISTRY ORDERABLES Performing Organization Address City/[facility] [place] [address] (ABNORMAL) POCT Glucose (07/08/2017 3:00 AM EST) P athologist Signature POC Glucose 273 (H) 65 - 199 [facility] mg/dL [facility] LABORATORY Comment: Supplemental ranges: <140 mg/dL before meals <180 mg/dL all other times of the day Specimen Anatomical Collection Method Collection Time Receive d Time (Source) Location / / Volume Laterality Blood specimen 07/08/2017 3:00 AM 017 3:00 (specimen) EST AM EST Daphne Shahid MD POINT OF CARE TEST ORDERABLE S Performing Organization Address City/State/[place] [address] (ABNORMAL) POCT Glucose (07/08/2017 1:57 AM EST) athologist Signature POC Glucose 288 (H) 65 - 199 [facility] mg/dL [facility] LABORATORY Comment: Supplemental ranges: <140 mg/dL before meals <180 mg/dL all other times of the day Specimen Anatomical Collection Method Collection Time Receive d Time (Source) Location / / Volume Laterality Blood specimen 07/08/2017 1:57 AM 017 1:57 (specimen) EST AM EST Daphne Shahid MD POINT OF CARE TEST ORDERABLE S Performing Organization Address City/State/[place] [address] (ABNORMAL) POCT Glucose (07/08/2017 1:01 AM EST) athologist Signature POC Glucose 315 (H) 65 - 199 [facility] mg/dL [facility] LAB[facility]ORY Comment: Supplemental ranges: <140 mg/dL before meals <180 mg/dL all other times of the day Specimen Anatomical Collection Method Collection Time Receive d Time (Source) Location / / Volume Laterality Blood specimen 07/08/2017 1:01 AM 017 1:01 (specimen) EST AM EST Daphne Shahid MD POINT OF CARE TEST ORDERABLE S Performing Organization Address City/State/[place] [address] (ABNORMAL) BLOOD GAS 2 ARTERIAL (07/08/2017 12:09 AM EST) athologist Signature pH Art 7.26 7.35 - [facility] (Critical) 7.45 [facility] LABORATORY Comment: Noted by instrument repairer. pCO2 Art 41 35 - 45 mmHg [facility] LABORATORY pO2 Art 96 85 - [...] mmol/L [facility] LABORATORY Comment: Noted by instrument repairer. FIO2 Art 40 % [facility] LABORATORY PF Ratio Art 240 [facility] LABORATORY Specimen Anatomical Collection Method Collection Time Receive d Time (Source) Location / / Volume Laterality Blood specimen Arterial Draw / 07/08/2017 12:09 2016 5:31 (specimen) Unknown AM EST AM EST Resulting Agency Comment Spec In Lab Samy Maldonado MD CHEMISTRY ORDERABLES Performing Organization Address City/State/[place] [address] (ABNORMAL) POCT Glucose (07/07/2017 10:56 PM EST) athologist Signature POC Glucose 292 (H) 65 - 199 [facility] mg/dL [facility] LABORATORY Comment: Supplemental ranges: <140 mg/dL before meals <180 mg/dL all other times of the day Specimen Anatomical Collection Method Collection Time Receive d Time (Source) Location / / Volume Laterality Blood specimen 07/07/2017 10:56 7 (specimen) PM EST 10:56 PM EST Daphne Shahid MD POINT OF CARE TEST ORDERABLE S Performing Organization Address City/State/[place] [address] (ABNORMAL) BLOOD GAS 2 ARTERIAL (07/07/2017 10:04 PM EST) athologist Signature pH Art 7.22 7.35 - [facility] (Critical) 7.45 [facility] LABORATORY Comment: Noted by instrument repairer. pCO2 Art 42 35 - 45 mmHg [facility] LABORATORY pO2 Art 94 85 - [...] mmol/L [facility] LABORATORY Comment: Noted by instrument repairer. FIO2 Art 40 % [facility] LABORATORY PF Ratio Art 235 [facility] LABORATORY Specimen Anatomical Collection Method Collection Time Receive d Time (Source) Location / / Volume Laterality Blood specimen 07/07/2017 10:04 7 (specimen) PM EST 10:04 PM EST Daphne Shahid MD CHEMISTRY ORDERABLES Performing Organization Address City/State/ZIP Code Phon e Number [address] (ABNORMAL) Hemoglobin (07/07/2017 10:00 PM EST) P athologist Signature Hemoglobin 12.8 (L) 13.7 - [facility] 16.5 gm/dL [facility] LABORATORY Specimen Anatomical Collection Method Collection Time Receive d Time (Source) Location / / Volume Laterality Blood specimen 07/07/2017 10:00 7 (specimen) PM EST 10:13 PM EST Resulting Agency Comment Spec In Lab Yuan Webber MD HEMATOLOGY ORDERABLES Performing Organization Address City/State/ZIP Code Phon e Number [address] (ABNORMAL) Potassium (07/07/2017 10:00 PM EST) P athologist Signature Potassium 3.4 (L) 3.5 - 5.0 [facility] mmol/L [facility] LABORATORY Comment: Please note: ??Patients [...] [facility]/[place] [address] (ABNORMAL) POCT Glucose (07/07/2017 8:49 PM EST) P athologist Signature POC Glucose 241 (H) 65 - 199 [facility] mg/dL [facility] LABORATORY Comment: Supplemental ranges: <140 [...] [facility]/[place] [address] Prepare Albumin 5% in [...] [facility]/[place] [address] EKG 12 Lead (07/07/2017 7:17 PM EST) Component Value Ref Range Test Analysis Performed Pathologis t Method Time At Signature Ventricular rate 75 BPM MUSE SYSTEM Atrial Rate 75 BPM MUSE SYSTEM P-R Interval 168 ms MUSE SYSTEM QRS Duration 104 ms MUSE SYSTEM Q-T Interval 462 ms MUSE SYSTEM QTC Calculated 515 ms MUSE SYSTEM (Bezet) Calculated P Kathleen 52 degrees MUSE SYSTEM Calculated R Kathleen -40 degrees MUSE SYSTEM Calculated T Kathleen 39 degrees MUSE SYSTEM INTERPRETATION Normal sinus [...] athologist Signature pH Art 7.21 7.35 - [facility] (Critical) 7.45 [facility] LABORATORY Comment: Noted by instrument repairer. pCO2 Art 50 (H) 35 - 45 mmHg [facility] LABORATORY pO2 Art 238 (H) 85 [...] [facility]ICAL [facility]ENTER LABORATORY Comment: Noted by instrument repairer. Please note: Patients with WBC [...] mmol/L [facility] LABORATORY Comment: Noted by instrument repairer. FIO2 Art 100 % [facility] LABORATORY PF Ratio Art 238 [facility] LABORATORY Specimen Anatomical Collection Method Collection Time Receive d Time (Source) Location / / Volume Laterality Blood specimen 07/07/2017 6:57 PM 017 6:57 (specimen) EST PM EST Daphne Shahid MD CHEMISTRY ORDERABLES Performing Organization Address City/State/[place] [address] (ABNORMAL) BLOOD GAS 2 ARTERIAL (07/07/2017 5:31 PM EST) P athologist Signature pH Art 7.29 7.35 - [facility] (Critical) 7.45 [facility] LABORATORY Comment: Noted by instrument repairer. pCO2 Art 48 (H) 35 - 45 mmHg [facility] LABORATORY pO2 Art 137 (H) 85 - 104 mmHg [facility] LABORATORY HCO3 Art 22.4 20.0 - 26.0 mmol/L [facility] LABORAT[facility] BE Art -4.3 (L) [...] Address City/State/[place] [address] Fibrinogen (07/07/2017 5:30 PM EST) P athologist Signature Fibrinogen 224 180 - 510 [facility] mg/dL [facility] LABORATORY Comment: Called by: JEET, Read back by: Monica Campos on/OR16, Date/Time:07/07/17 17:48. A fibrinogen level >100 mg/dL is adequat e for hemostasis in most patients without underlying bleeding disorders. Specimen Anatomical Collection Method Collection Time Receive d Time (Source) Location / / Volume Laterality Blood specimen 07/07/2017 5:30 PM 12/13/2 017 5:34 (specimen) EST PM EST Resulting Agency Comment Spec In Lab Yifan Perez MD HEMATOLOGY ORDERABLES Performing Organization Address City/[facility] Code Phon e Number [address] APTT (07/07/2017 5:30 PM [...] EST Resulting Agency Comment Spec In Lab Yiafn Perez MD HEMATOLOGY ORDERABLES Performing Organization Address [facility] [place] [address] (ABNORMAL) Prothrombin Time (07/07/2017 [...] [facility]/[place] [address] (ABNORMAL) Hemogram (07/07/2017 5:30 PM EST) athologist Signature WBC 19.6 (H) 4.0 - 9.5 [facility] x10(3)/[facility] LABORATORY RBC 3.08 (L) 4.58 - [facility] 5.54 [facility] x10(6)/[facility] LABORATORY Hemoglobin 9.2 (L) 13.7 - [facility] 16.5 gm/dL [facility] Hematocrit 28.0 (L) 40.5 - [facility] 48.5 % [facility] LABORATORY Comment: This result has been called to MONICA MORAN by DONALD GROSSMAN on 07 07 2017 at 1759, and has been read back. MCV 90.9 82.9 - 93.1 [facility] LABORATORY MCH 29.9 27.5 - 32.1 pg [facility] LABORATORY MCHC 32.9 32.0 - 35.7 gm/dL [facility] LABORATORY Platelets 155 145 - 357 x10(3)/[facility] LABORATORY RDWSD 46.5 (H) 36.0 - 45.0 [facility] LABORATORY RDWCV 14.1 (H) 11.4 - 13.8 % [facility] LABORATORY MPV 9.5 7.6 - 12.9 [facility] LABORATORY nRBC % Auto 0.0 % [facility] LABORATORY nRBC Abs Auto 0.000 0.000 - 0.000 x10(3)/[facility] LABORATORY Specimen Anatomical Collection Method Collection Time Receive d Time (Source) Location / / Volume Laterality Blood specimen 07/07/2017 5:30 PM 017 5:34 (specimen) EST PM EST Resulting Agency Comment Spec In Lab Yifan Perez MD HEMATOLOGY ORDERABLES Performing Organization Address City/State/[place] [address] Prepare Platelets, Apheresis (07/07/2017 5:00 PM EST) P athologist Signature Dispensed? Yes [facility] LABORATORY Specimen Anatomical Collection Method Collection Time Receive d Time (Source) Location / / Volume Laterality Blood specimen 07/07/2017 5:00 PM 017 4:58 (specimen) EST PM EST Daphne Shahid MD BLOOD BANK ORDERABLES Performing Organization Address City/State/[place] [address] Platelet count (07/07/2017 4:55 PM EST) athologist Signature Platelets 177 145 - 357 [facility] x10(3)/[facility] LABORATORY Plat Immature 1.5 0.0 - 7.4 [facility] % % [facility] LABORATORY Comment: Limitation of the Immature Platelet Frac tion (IPF)-May be less reliable when the platelet count is less than 62a989/u L due to statistical imprecision. The IPF [...] in a decreased state of production. References: [employer] The Clinical Value of the Immature Platelet Fraction (IPF) in Cell Recovery Document Number 10-1143 12/2010 [employer] The Role of the Imm ature Platelet Fraction (IPF) in the Differential Diagnosis of Thrombocytopen ia, Document [id number] V0/07/08 P012/06 Specimen Anatomical Collection Method Collection Time Receive d Time (Source) Location / / Volume Laterality Blood specimen 07/07/2017 4:55 PM 017 5:13 (specimen) EST PM EST Resulting Agency Comment Spec In Lab Daphne Shahid MD HEMATOLOGY ORDERABLES Performing Organization Address City/[facility]/[place] [address] (ABNORMAL) Hemoglobin and Hematocrit, blood (07/07/2017 4:55 PM EST) P athologist Signature Hemoglobin 9.1 (L) 13.7 - 16.5 [facility]dL [facility] LABORATORY Comment: This result has [...] [facility]/[place] [address] (ABNORMAL) BLOOD GAS 2 ARTERIAL (07/07/2017 4:38 PM EST) Analysis Performed At Patho logist Time Signature pH Art 7.37 7.35 - [facility] 7.45 [facility] LABORATORY pCO2 Art 44 35 - 45 [facility] mmHg [facility] LABORATORY pO2 Art 322 (H) 85 - 104 [facility] mmHg [facility] LABORATORY HCO3 Art 24.9 20.0 - [facility] 26.0 [facility] mmol/L [facility] LABORATORY BE Art -0.4 -3.0 - 3.0 [facility] mmol/L [facility] LABORATORY Hgb Blood Gas 10.1 (L) 13.7 - [facility] 16.5 gm/dL [facility] LABORATORY O2HB Art 98.7 (H) 94.0 - [facility] 97.0 % [facility] LABORATORY COHB Art 0.1 % [facility] Comment: Noted by instrument repairer. Note: ??Total bilirubin higher than [...] Address City/State/[place] [address] (ABNORMAL) BLOOD GAS 2 VENOUS (07/07/2017 4:06 PM EST) Analysis Performed At Patho logist Time Signature pH Cody 7.31 (L) 7.32 - [facility] 7.42 [facility] LABORATORY pCO2 [place] 47 41 - 51 [facility] LABORATORY pO2 [place] 53 (H) 25 - 40 [facility] LABORATORY HCO3 [place] 22.7 mmol/L [facility] LABORATORY BE Cody -3.7 mmol/L [facility] LABORATORY Hgb Blood Gas 10.2 (L) 13.7 - [facility] 16.5 gm/dL [facility] LABORATORY O2HB [place] 81.0 % [facility] Comment: Noted by instrument repairer. Note: ??Total bilirubin higher than 20 m g/dL may lead to falsely low ionized calcium. CL Whole Blood 100 98 - 107 mmol/L [facility] LABORATORY Gluc Whole Bld 231 (H) 65 - 199 mg/dL [facility] LABORATORY Comment: Diabetes: >=200 mg/dL plus symp toms Lactate WB 1.1 0.5 - 2.2 mmol/L [facility] LABORATORY BGas Source Venous [facility] LABORATORY Specimen Anatomical Collection Method Collection Time Receive d Time (Source) Location / / Volume Laterality Blood specimen 07/07/2017 4:06 PM 017 4:06 (specimen) EST PM EST Daphne Shahid MD CHEMISTRY ORDERABLES Performing Organization Address City/State/[place] [address] (ABNORMAL) BLOOD GAS 2 ARTERIAL (07/07/2017 4:05 PM EST) Analysis Performed At Patho logist Time Signature pH Art 7.36 7.35 - [facility] 7.45 [facility] LABORATORY pCO2 Art 40 35 - 45 [facility] LABORATORY pO2 Art 282 (H) 85 - 104 [facility] LABORATORY HCO3 Art 22.1 20.0 - [facility] 26.0 [facility] mmol/L [facility] LABORATORY BE Art -3.4 (L) -3.0 - 3.0 [facility] mmol/L [facility] LABORATORY Hgb Blood Gas 10.2 (L) 13.7 - [facility] 16.5 gm/dL [facility] LABORATORY O2HB Art 98.4 (H) 94.0 - [facility] 97.0 % [facility] LABORATORY COHB Art 0.3 % [facility] Comment: Noted by instrument repairer. Note: ??Total bilirubin higher than [...] Address City/State/[place] [address] (ABNORMAL) BLOOD GAS 2 ARTERIAL (07/07/2017 2:29 PM EST) Analysis Performed At Patho logist Time Signature pH Art 7.43 7.35 - [facility] 7.45 [facility] LABORATORY pCO2 Art 36 35 - 45 [facility] LABORATORY pO2 Art 221 (H) 85 - 104 [facility] LABORATORY HCO3 Art 23.2 20.0 - [facility] 26.0 [facility] mmol/L [facility] LABORATORY BE Art -1.2 -3.0 - 3.0 [facility] mmol/L [facility] LABORATORY Hgb Blood Gas 13.9 13.7 - [facility] 16.5 gm/dL [facility] O2HB Art 97.8 (H) 94.0 - [facility] 97.0 % [facility] LABORATORY COHB Art 1.1 % [facility] [...] Organization Address City/State/[place] [address] Prepare Coag Factors (Non-Hemophilia) (07/07/2017 1:25 PM EST) P athologist Signature Dispensed? Yes [facility] LABORATORY Specimen Anatomical Collection Method Collection Time Receive d Time (Source) Location / / Volume Laterality Blood specimen 07/07/2017 1:25 PM 017 1:21 (specimen) EST PM EST Daphne Shahid MD BLOOD BANK ORDERABLES Performing Organization Address City/State/ZIP Code Phon e Number [address] Prepare RBC (07/07/2017 1:10 PM EST) P athologist Signature Dispensed? Yes [facility] LABORATORY Specimen Anatomical Collection Method Collection Time Receive d Time (Source) Location / / Volume Laterality Blood specimen 07/07/2017 1:10 PM 017 1:05 (specimen) EST PM EST Daphne Shahid MD BLOOD BANK ORDERABLES Performing Organization Address City/State/[place] [address] POCT Glucose (07/07/2017 11:56 AM EST) athologist Signature POC Glucose 188 65 - 199 [facility] SU mg/dL [facility] LABORATORY Comment: Supplemental ranges: <140 [...] [facility]/[place] [address] POCT Glucose (07/07/2017 11:05 AM EST) athologist Signature POC Glucose 168 65 - 199 [facility] LABORATORY Comment: Supplemental ranges: <140 mg/dL before meals <180 mg/dL all other times of the day Specimen Anatomical Collection Method Collection Time Receive d Time (Source) Location / / Volume Laterality Blood specimen 07/07/2017 11:05 7 (specimen) AM EST 11:05 AM EST Daphne Shahid MD POINT OF CARE TEST ORDERABLE S Performing Organization Address City/State/ZIP Code Phon e Number [address] POCT Glucose (07/07/2017 10:02 AM EST) P athologist Signature POC Glucose 191 65 - 199 [facility] mg/dL [facility] LABORATORY Comment: Supplemental ranges: <140 mg/dL before meals <180 mg/dL all other times of the day Specimen Anatomical Collection Method Collection Time Receive d Time (Source) Location / / Volume Laterality Blood specimen 07/07/2017 10:02 7 (specimen) AM EST 10:02 AM EST Daphne Shahid MD POINT OF CARE TEST ORDERABLE S Performing Organization Address City/State/ZIP Code Phon e Number [address] POCT Glucose (07/07/2017 7:53 AM EST) athologist Signature POC Glucose 178 65 - 199 [place] mg/dL [facility] LABORATORY Comment: Supplemental ranges: <140 mg/dL before meals <180 mg/dL all other times of the day Specimen Anatomical Collection Method Collection Time Receive d Time (Source) Location / / Volume Laterality Blood specimen 07/07/2017 7:53 AM 017 7:53 (specimen) EST AM EST Daphne Shahid MD POINT OF CARE TEST ORDERABLE S Performing Organization Address City/State/ZIP Code Phon e Number [address] POCT Glucose (07/07/2017 7:03 AM EST) athologist Signature POC Glucose 188 65 - 199 [place] mg/dL [facility] LABORATORY Comment: Supplemental ranges: <140 mg/dL before meals <180 mg/dL all other times of the day Specimen Anatomical Collection Method Collection Time Receive d Time (Source) Location / / Volume Laterality Blood specimen 07/07/2017 7:03 AM 017 7:03 (specimen) EST AM EST Daphne Shahid MD POINT OF CARE TEST ORDERABLE S Performing Organization Address City/State/[place] [address] (ABNORMAL) POCT Glucose (07/07/2017 6:17 AM EST) athologist Signature POC Glucose 207 (H) 65 - 199 [facility] LABORATORY Comment: Supplemental ranges: <140 mg/dL before meals <180 mg/dL all other times of the day Specimen Anatomical Collection Method Collection Time Receive d Time (Source) Location / / Volume Laterality Blood specimen 07/07/2017 6:17 AM 017 6:17 (specimen) EST AM EST Daphne hSahid MD POINT OF CARE TEST ORDERABLE S Performing Organization Address City/[facility]/ZIP Code Phon e Number [address] Differential, Automated (07/07/2017 5:15 AM EST) athologist Signature Neutrophils % 69.7 % [facility] LABORATORY Neutr Abs (ANC) 5.32 1.70 - [facility] 6.10 [facility] x10(3)/[facility] LABORATORY Lymphocytes % 16.3 % [facility] LABORATORY Lymphocytes Abs 1.2 0.9 - 3.2 [facility] x10(3)/[facility] LABORATORY Monocytes % 10.5 % [facility] LABORATORY Monocyte Abs 0.8 0.3 - 0.9 [facility] x10(3)/[facility] LABORATORY Eosinophils % 2.5 % [facility] LABORATORY Eosinophils Abs 0.2 0.0 - 0.4 [facility] x10(3)/[facility] LABORATORY Basophils % 0.7 % [facility] LABORATORY Basophils Abs 0.0 0.0 - 0.1 [facility] x10(3)/[facility] LABORATORY Immature Gran % 0.30 % [place] [...] Melisa Gran Abs 0.02 0.00 - 0.04 x10(3)/[facility] LABORATORY Specimen Anatomical Collection Method Collection Time Receive d Time (Source) Location / / Volume Laterality Blood specimen 07/07/2017 5:15 AM 017 5:34 (specimen) EST AM EST Resulting Agency Comment Spec In Lab Daphne Shahid MD HEMATOLOGY ORDERABLES Performing Organization Address City/State/[place] [address] (ABNORMAL) Hemogram (07/07/2017 5:15 AM EST) Analysis Performed At Patho logist Time Signature WBC 7.6 4.0 - 9.5 [facility] x10(3)/[facility] LABORATORY RBC 4.82 4.58 - [facility] 5.54 [facility] x10(6)/[facility] Hemoglobin 14.4 13.7 - [facility] 16.5 gm/dL [facility] Hematocrit 42.1 40.5 [facility] % [facility] LABORATORY MCV 87.3 82.9 [facility] 93.1 [facility] LABORATORY MCH 29.9 27.5 - [place] [facility] 32.[address] [facility] LABORATORY MCHC 34.2 32.0 - [facility] 35.7 gm/dL [facility] LABORATORY Platelets 188 145 - 357 [facility] x10(3)/[facility] LABORATORY RDWSD 45.1 (H) 36.0 [facility] 45.0 [facility] RDWCV 14.3 (H) 11.4 - [facility] SU 13.8 % [facility] LABORATORY MPV 9.4 7.6 - 12.9 [facility] LABORATORY nRBC % Auto 0.0 % [facility] LABORATORY nRBC Abs Auto 0.000 0.000 - [facility] 0.000 [facility] x10(3)/[facility] LABORATORY Specimen Anatomical Collection Method Collection Time Receive d Time (Source) Location / / Volume Laterality Blood specimen 07/07/2017 5:15 AM 017 5:34 (specimen) EST AM EST Resulting Agency Comment Spec In Lab Daphne Shahid MD HEMATOLOGY ORDERABLES Performing Organization Address City/[facility]/[place] [address] (ABNORMAL) APTT (07/07/2017 5:15 [...] [facility]/[place] [address] Magnesium (07/07/2017 5:15 AM EST) P athologist Signature Magnesium 0.94 0.69 - 1.07 [facility] mmol/L [facility] LABORATORY Specimen Anatomical Collection Method Collection Time Receive d Time (Source) Location / / Volume Laterality Blood specimen 07/07/2017 5:15 AM 017 5:34 (specimen) EST AM EST Resulting Agency Comment Spec In Lab Daphne Shahid MD CHEMISTRY ORDERABLES Performing Organization Address City/[facility]/[place] [address] (ABNORMAL) Basic Metabolic Panel (non-fasting) (07/07/2017 5:15 AM EST) athologist Signature Glucose Lvl 203 (H) 65 - 199 [facility] mg/dL [facility] LABORATORY [...] [facility] Estimated GFR >60 >=60 [facility] LABORATORY Comment: The reported eGFR should be multiplied b y 1.2 for patients. The MDRD is not an appropriate measure o f renal function for patients with body mass extremes or in patients with acute kidney failure. http://[employer]/DHnkdep http://[employer]/DHMCnkf Specimen Anatomical Collection Method Collection Time Receive d Time (Source) Location / / Volume Laterality Blood specimen 07/07/2017 5:15 AM 017 5:34 (specimen) EST AM EST Resulting Agency Comment Spec In Lab Daphne Shahid MD CHEMISTRY ORDERABLES Performing Organization Address City/State/[place] [address] (ABNORMAL) Cardiac Enzymes (LEB/CGP) (07/07/2017 5:15 AM EST) athologist Signature Troponin-T 2.07 (H) 0.00 - [facility] 0.00 ng/mL [facility] LABORATORY Comment: The 99th percentile [...] additional sample may be indicated. Reference: Third Burton Definition of Myocardial Infarction. Journal of the [place] [employer] 2012;60:1581-98 CK, Total 88 0 - 200 unit/L [facility] LABORATORY Specimen Anatomical Collection Method Collection Time Receive d Time (Source) Location / / Volume Laterality Blood specimen 07/07/2017 5:15 AM 017 5:34 (specimen) EST AM EST Resulting Agency Comment Spec In Lab Daphne Shahid MD CHEMISTRY ORDERABLES Performing Organization Address City/State/Z[place] [address] POCT Glucose (07/07/2017 5:01 AM EST) P athologist Signature POC Glucose 182 65 - 199 [facility] mg/dL [facility] LABORATORY Comment: Supplemental ranges: <140 mg/dL before meals <180 mg/dL all other times of the day Specimen Anatomical Collection Method Collection Time Receive d Time (Source) Location / / Volume Laterality Blood specimen 07/07/2017 5:01 AM 017 5:01 (specimen) EST AM EST Daphne Shahid MD POINT OF CARE TEST ORDERABLE S Performing Organization Address City/State/ZIP Code Phon e Number [address] POCT Glucose (07/07/2017 4:08 AM EST) athologist Signature POC Glucose 199 65 - 199 [facility] LABORATORY Comment: Supplemental ranges: <140 [...] [facility]/[place] [address] POCT Glucose (07/07/2017 3:03 AM EST) athologist Signature POC Glucose 188 65 - 199 [facility] mg[facility] LABORATORY Comment: Supplemental ranges: <140 mg/dL before meals <180 mg/dL all other times of the day Specimen Anatomical Collection Method Collection Time Receive d Time (Source) Location / / Volume Laterality Blood specimen 07/07/2017 3:03 AM 017 3:03 (specimen) EST AM EST Daphne Shahid MD POINT OF CARE TEST ORDERABLE S Performing Organization Address City/State/[place] [address] (ABNORMAL) POCT Glucose (07/07/2017 2:08 AM EST) athologist Signature POC Glucose 200 (H) 65 - 199 [facility] mg[facility]dL [facility] LABORATORY Comment: Supplemental ranges: <140 mg/dL before meals <180 mg/dL all other times of the day Specimen Anatomical Collection Method Collection Time Receive d Time (Source) Location / / Volume Laterality Blood specimen 07/07/2017 2:08 AM 017 2:08 (specimen) EST AM EST Daphne Shahid MD POINT OF CARE TEST ORDERABLE S Performing Organization Address City/State/[place] [address] (ABNORMAL) POCT Glucose (07/07/2017 1:31 AM EST) P athologist Signature POC Glucose 209 (H) 65 - 199 [facility] mg/dL [facility] LABORATORY Comment: Supplemental ranges: <140 mg/dL before meals <180 mg/dL all other times of the day Specimen Anatomical Collection Method Collection Time Receive d Time (Source) Location / / Volume Laterality Blood specimen 07/07/2017 1:31 AM 017 1:31 (specimen) EST AM EST Daphne Shahid MD POINT OF CARE TEST ORDERABLE S Performing Organization Address City/State/[place] [address] XR Chest PA or [...] POC Glucose 161 65 - 199 [facility] mg[facility]dL [facility] LABORATORY Comment: Supplemental ranges: <140 [...] [facility]/[place] [address] (ABNORMAL) APTT (07/07/2017 12:00 [...] Organization Address City/State/[place] [address] POCT Glucose (07/06/2017 9:55 PM EST) athologist Signature POC Glucose 109 65 - 199 [facility] mg/dL [facility] LABORATORY Comment: Supplemental ranges: <140 mg/dL before meals <180 mg/dL all other times of the day Specimen Anatomical Collection Method Collection Time Receive d Time (Source) Location / / Volume Laterality Blood specimen 07/06/2017 9:55 PM 017 9:55 (specimen) EST PM EST Daphne Shahid MD POINT OF CARE TEST ORDERABLE S Performing Organization Address City/State/ZIP Code Phon e Number [address] POCT Glucose (07/06/2017 9:04 PM EST) athologist Signature POC Glucose 120 65 - 199 [facility] mg[facility]dL [facility] LABORATORY Comment: Supplemental ranges: <140 [...] [facility] [address] POCT Glucose (07/06/2017 7:45 PM EST) athologist Signature POC Glucose 158 65 - 199 [facility] mg[facility]dL [facility] LABORATORY Comment: Supplemental ranges: <140 [...] [facility]/[place] [address] Potassium (07/06/2017 7:40 PM EST) athologist Signature Potassium 3.9 3.5 - 5.0 [facility] mmol/L [facility] LABORATORY Comment: Please note: ??Patients [...] [facility]/[place] [address] (ABNORMAL) Cardiac Enzymes (LEB/CGP) (07/06/2017 7:40 PM EST) athologist Signature Troponin-T 2.27 (H) 0.00 - [facility] 0.00 ng/mL [facility] LABORATORY Comment: The 99th percentile [...] additional sample may be indicated. Reference: Third Burton Definition of Myocardial Infarction. Journal of the [place] [employer] 2012;60:1581-98 CK, Total 93 0 - 200 unit/L [facility] LABORATORY Specimen Anatomical Collection Method Collection Time Receive d Time (Source) Location / / Volume Laterality Blood specimen 07/06/2017 7:40 PM 017 7:52 (specimen) EST PM EST Resulting Agency Comment Spec In Lab Daphne Shahid MD CHEMISTRY ORDERABLES Performing Organization Address City/State/[place] [address] (ABNORMAL) POCT Glucose (07/06/2017 7:13 PM EST) athologist Signature POC Glucose 200 (H) 65 - 199 [facility] mg/dL [facility] LABORATORY Comment: Supplemental ranges: <140 mg/dL before meals <180 mg/dL all other times of the day Specimen Anatomical Collection Method Collection Time Receive d Time (Source) Location / / Volume Laterality Blood specimen 07/06/2017 7:13 PM 017 7:13 (specimen) EST PM EST Daphne Shahid MD POINT OF CARE TEST ORDERABLE S Performing Organization Address City/State/ZIP Code [facility] [place] [address] (ABNORMAL) APTT (07/06/2017 6:15 PM EST) athologist [facility] PTT 94 (H) 25 - 35 sec [...] Organization Address City/State/[place] [address] (ABNORMAL) POCT Glucose (07/06/2017 6:03 PM EST) athologist Signature POC Glucose 236 (H) 65 - 199 [facility] mg/dL [facility] LABORATORY Comment: Supplemental ranges: <140 mg/dL before meals <180 mg/dL all other times of the day Specimen Anatomical Collection Method Collection Time Receive d Time (Source) Location / / Volume Laterality Blood specimen 07/06/2017 6:03 PM 017 6:03 (specimen) EST PM EST Daphne Shahid MD POINT OF CARE TEST ORDERABLE S Performing Organization Address City/State/[place] [address] (ABNORMAL) POCT Glucose (07/06/2017 5:01 PM EST) P athologist Signature POC Glucose 235 (H) 65 - 199 [place] ZHAOSU mg/dL [facility] LABORATORY Comment: Supplemental ranges: <140 [...] [facility] [address] (ABNORMAL) POCT Glucose (07/06/2017 4:06 PM EST) P athologist Signature POC Glucose 202 (H) 65 - 199 [place] SU mg/dL [facility] LABORATORY Comment: Supplemental ranges: <140 mg/dL before meals <180 mg/dL all other times of the day Specimen Anatomical Collection Method Collection Time Receive d Time (Source) Location / / Volume Laterality Blood specimen 07/06/2017 4:06 PM 017 4:06 (specimen) EST PM EST Daphne Shahid MD POINT OF CARE TEST ORDERABLE S Performing Organization Address City/State/[place] [address] POCT Glucose (07/06/2017 2:59 PM EST) P athologist Signature POC Glucose 178 65 - 199 [place] SU mg/dL [facility] LABORATORY Comment: Supplemental ranges: <140 [...] [facility]/ZIP Code Phon e Number [address] (ABNORMAL) Cardiac Enzymes (LEB/CGP) (07/06/2017 2:10 PM EST) P athologist Signature Troponin-T 2.34 (H) 0.00 - [place] SU 0.00 ng/mL [facility]OR[facility]ORY Comment: The 99th percentile [...] additional sample may be indicated. Reference: Third Burton Definition of Myocardial Infarction. Journal of the [place] [employer] 2012;60:1581-98 CK, Total [...] [facility]/[place] [address] POCT Glucose (07/06/2017 2:08 PM EST) P athologist Signature POC Glucose 192 65 - 199 [place] Z[place]OSU mg/dL [facility] LABORATORY Comment: Supplemental ranges: <140 mg/dL before meals <180 mg/dL all other times of the day Specimen Anatomical Collection Method Collection Time Receive d Time (Source) Location / / Volume Laterality Blood specimen 07/06/2017 2:08 PM 017 2:08 (specimen) EST PM EST Daphne Shahid MD POINT OF CARE TEST ORDERABLE S Performing Organization Address City/State/ZIP Code Phon e Number [address] POCT Glucose (07/06/2017 1:04 PM EST) athologist Signature POC Glucose 162 65 - 199 [facility] SU mg/dL [facility] LABORATORY Comment: Supplemental ranges: <140 mg/dL before meals <180 mg/dL all other times of the day Specimen Anatomical Collection Method Collection Time Receive d Time (Source) Location / / Volume Laterality Blood specimen 07/06/2017 1:04 PM 017 1:04 (specimen) EST PM EST Daphne Shahid MD POINT OF CARE TEST ORDERABLE S Performing Organization Address City/State/ZIP Code Phon e Number [address] POCT Glucose (07/06/2017 12:05 PM EST) athologist Signature POC Glucose 196 65 - 199 [facility] SU mg/dL [facility]ORY Comment: Supplemental ranges: <140 mg/dL before meals <180 mg/dL all other times of the day Specimen Anatomical Collection Method Collection Time Receive d Time (Source) Location / / Volume Laterality Blood specimen 07/06/2017 12:05 7 (specimen) PM EST 12:05 PM EST Daphne Shahid MD POINT OF CARE TEST ORDERABLE S Performing Organization Address City/State/[place] [address] EKG 12 Lead (07/06/2017 12:00 PM EST) Component Value Ref Range Test Analysis Performed Pathologis t Method Time At Signature Ventricular rate 91 BPM MUSE SYSTEM Atrial Rate 91 BPM MUSE SYSTEM P-R Interval 140 ms MUSE SYSTEM QRS Duration 94 ms MUSE SYSTEM Q-T Interval 394 ms MUSE SYSTEM QTC Calculated 484 ms MUSE SYSTEM (Bezet) Calculated P Kathleen 36 degrees MUSE SYSTEM Calculated R Kathleen -19 degrees MUSE SYSTEM Calculated T Kathleen 104 degrees MUSE SYSTEM INTERPRETATION Normal sinus rhythm MUSE SYSTEM 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) ST & T wave abnormality, consider lateral ischemia Abnormal ECG When compared with ECG of 05-JUL-2017 20:39, No significant change was found Confirmed by MD Luci, Taurus Braun ([id number]) on 07/06/2017 5:07:33 PM Specimen Anatomical Collection Method Collection Time Receive d Time (Source) Location / / Volume Laterality 07/06/2017 12:00 07/06/2017 5:07 PM EST PM EST Daphne Shahid MD ECG ORDERABLES Performing Organization Address City/[facility]/ZIP Code Phon e Number MUSE SYSTEM ABORH Recheck Status (07/06/2017 12:00 PM EST) [facility] Method Time Signature ABORH Type Completed [facility] LABORATORY Specimen Anatomical Collection Method Collection Time Receive d Time (Source) Location / / Volume Laterality Blood specimen 07/06/2017 12:00 7 (specimen) PM EST 12:24 PM EST Resulting Agency Comment Spec In Lab Daphne Shahid MD BLOOD BANK ORDERABLES Performing Organization Address City/[facility]/[place] [address] Antibody screen (07/06/2017 12:00 PM EST) [facility] [employer] Method Time Signature Ab Screen Negative [facility] LABORATORY Expires at 07/09/2017 [facility] [id number] on: [facility] LABORATORY Specimen Anatomical Collection Method Collection Time Receive d Time (Source) Location / / Volume Laterality Blood specimen 07/06/2017 12:00 7 (specimen) PM EST 12:24 PM EST Resulting Agency Comment Spec In Lab Daphne Shahid MD BLOOD BANK ORDERABLES Performing Organization Address City/[facility]/[place]IP [place] [address] ABO/Rh Typing (07/06/2017 12:00 [...] City/State/ZIP Code Phon e Number [place] [id number] Prothrombin Time (07/06/2017 11:24 [...] City/State/ZIP Code Phon e Number [place] [id number] (ABNORMAL) APTT (07/06/2017 11:24 [...] Address City/State/ZIP Code Phon e Number [address] POCT Glucose (07/06/2017 11:02 AM EST) athologist Signature POC Glucose 187 65 - 199 [place] SU mg/dL [facility] LABORATORY Comment: Supplemental ranges: <140 mg/dL before meals <180 mg/dL all other times of the day Specimen Anatomical Collection Method Collection Time Receive d Time (Source) Location / / Volume Laterality Blood specimen 07/06/2017 11:02 7 (specimen) AM EST 11:02 AM EST Daphne Shahid MD POINT OF CARE TEST ORDERABLE S Performing Organization Address City/State/ZIP Code Phon e Number [address] POCT Glucose (07/06/2017 10:18 AM EST) athologist Signature POC Glucose 193 65 - 199 [place] SU mg/dL [facility]ORATORY Comment: Supplemental ranges: <140 mg/dL before meals <180 mg/dL all other times of the day Specimen Anatomical Collection Method Collection Time Receive d Time (Source) Location / / Volume Laterality Blood specimen 07/06/2017 10:18 7 (specimen) AM EST 10:18 AM EST Daphne Shahid MD POINT OF CARE TEST ORDERABLE S Performing Organization Address City/State/ZIP Code Phon e Number [address] POCT Glucose (07/06/2017 9:25 AM EST) athologist Signature POC Glucose 182 65 - 199 [place] SU mg/dL [facility]ORY Comment: Supplemental ranges: <140 [...] [facility] [address] (ABNORMAL) Cardiac Enzymes (LEB/CGP) (07/06/2017 8:10 AM EST) P athologist Signature Troponin-T 2.26 (H) 0.00 - [facility] 0.[facility] ng/mL [facility] Comment: The 99th percentile [...] additional sample may be indicated. Reference: Third Burton Definition of Myocardial Infarction. Journal of the [place] College [employer]iology 2012;60:1581-98 CK, Total 124 0 - 200 unit/L [facility] LABORATORY Specimen Anatomical Collection Method Collection Time Receive d Time (Source) Location / / Volume Laterality Blood specimen 07/06/2017 8:10 AM 017 8:23 (specimen) EST AM EST Resulting Agency Comment Spec In Lab Daphne Shahid MD CHEMISTRY ORDERABLES Performing Organization Address City/State/ZIP Code Phon e Number [place] [address] Magnesium (07/06/2017 8:10 AM EST) athologist Signature Magnesium 0.84 0.69 - 1.07 [facility] mmol/L [facility] LABORATORY Specimen Anatomical Collection Method Collection Time Receive d Time (Source) Location / / Volume Laterality Blood specimen 07/06/2017 8:10 AM 017 8:21 (specimen) EST AM EST Resulting Agency Comment Spec In Lab Daphne Shahid MD CHEMISTRY ORDERABLES Performing Organization Address City/State/ZIP Code Phon e Number [address] (ABNORMAL) Basic Metabolic Panel (non-fasting) (07/06/2017 8:10 AM EST) athologist Signature Glucose Lvl 199 65 - 199 [facility] mg/dL [facility] LABORATORY [...] [facility] Estimated GFR >60 >=60 [facility] LABORATORY Comment: The reported eGFR should be multiplied b y 1.2 for patients. The MDRD is not an appropriate measure o f renal function for patients with body mass extremes or in patients with acute kidney failure. http://[employer]/DHnkdep http://[employer]/DHMCnkf Specimen Anatomical Collection Method Collection Time Receive d Time (Source) Location / / Volume Laterality Blood specimen 07/06/2017 8:10 AM 017 8:21 (specimen) EST AM EST Resulting Agency Comment Spec In Lab Daphne Shahid MD CHEMISTRY ORDERABLES Performing Organization Address City/[facility]/ZIP Code Phon e Number [address] POCT Glucose (07/06/2017 7:34 AM EST) athologist Signature POC Glucose 198 65 - 199 [facility] Comment: Supplemental ranges: <140 [...] [facility] [address] POCT Glucose (07/06/2017 7:03 AM EST) athologist Signature POC Glucose 181 65 - 199 [facility] Comment: Supplemental ranges: <140 [...] [facility]/[place] [address] XR Chest PA or [...] Signature POC Glucose 172 65 - 199 [facility] mg/dL [facility] LAB[facility]ATORY Comment: Supplemental ranges: <140 mg/dL before meals <180 mg/dL all other times of the day Specimen Anatomical Collection Method Collection Time Receive d Time (Source) Location / / Volume Laterality Blood specimen 07/06/2017 6:21 AM 017 6:21 (specimen) EST AM EST Daphne Shahid MD POINT OF CARE TEST ORDERABLE S Performing Organization Address City/State/ZIP Code Phon e Number [address] POCT Glucose (07/06/2017 5:08 AM EST) athologist Signature POC Glucose 154 65 - 199 [place] mg/dL [facility] LABORATORY Comment: Supplemental ranges: <140 mg/dL before meals <180 mg/dL all other times of the day Specimen Anatomical Collection Method Collection Time Receive d Time (Source) Location / / Volume Laterality Blood specimen 07/06/2017 5:08 AM 017 5:08 (specimen) EST AM EST Daphne Shahid MD POINT OF CARE TEST ORDERABLE S Performing Organization Address City/State/ZIP Code Phon e Number [address] POCT Glucose (07/06/2017 4:05 AM EST) athologist Signature POC Glucose 142 65 - 199 [place] mg/dL [facility] LABORATORY Comment: Supplemental ranges: <140 mg/dL before meals <180 mg/dL all other times of the day Specimen Anatomical Collection Method Collection Time Receive d Time (Source) Location / / Volume Laterality Blood specimen 07/06/2017 4:05 AM 017 4:05 (specimen) EST AM EST Daphne Shahid MD POINT OF CARE TEST ORDERABLE S Performing Organization Address City/State/ZIP Code Phon e Number [address] POCT Glucose (07/06/2017 3:00 AM EST) athologist Signature POC Glucose 116 65 - 199 [place] mg/dL [facility] LABORATORY Comment: Supplemental ranges: <140 [...] [facility]/ZIP Code Phon e Number [address] Potassium (07/06/2017 2:20 AM EST) athologist Signature Potassium 3.9 3.5 - 5.0 [facility] mmol/L [facility] LAB[facility]ATORY Comment: Please note: ??Patients [...] [facility]/ZIP Code Phon e Number [address] Differential, Automated (07/06/2017 2:20 AM EST) athologist Signature Neutrophils % 72.9 % [facility] LABORATORY Neutr Abs (ANC) 5.53 1.70 - [facility] 6.10 [facility] x10(3)/[facility] LABORATORY Lymphocytes % 16.4 % [facility] LABORATORY Lymphocytes Abs 1.2 0.9 - 3.2 [facility] x10(3)/[facility] LABORATORY Monocytes % 9.4 % [facility] LABORATORY Monocyte Abs 0.7 0.3 - 0.9 [facility] x10(3)/[facility] LABORATORY Eosinophils % 0.5 % [facility] LABORATORY Eosinophils Abs 0.0 0.0 - 0.4 [facility] x10(3)/[facility] LABORATORY Basophils % 0.4 % [facility] LABORATORY Basophils Abs 0.0 0.0 - 0.1 [facility] x10(3)/[facility] LABORATORY Immature Gran % 0.40 % [place] [...] Melisa Gran Abs 0.03 0.00 - 0.04 x10(3)/[facility] MAR Y [facility] LABORATORY Specimen Anatomical Collection Method Collection Time Receive d Time (Source) Location / / Volume Laterality Blood specimen 07/06/2017 2:20 AM 017 2:33 (specimen) EST AM EST Resulting Agency Comment Spec In Lab Daphne Shahid MD HEMATOLOGY ORDERABLES Performing Organization Address City/State/[place] [address] (ABNORMAL) Hemogram (07/06/2017 2:20 AM EST) Analysis Performed At Patho logist Time Signature WBC 7.6 4.0 - 9.5 [facility] x10(3)/[facility] LABORATORY RBC 4.52 (L) 4.58 [facility] 5.54 [facility] x10(6)/[facility] LABORATORY Hemoglobin 13.4 (L) 13.7 - [facility] 16.5 gm/dL [facility] LABORATORY Hematocrit 39.7 (L) 40.5 - [facility] 48.5 % [facility] LABORATORY MCV 87.8 82.9 - [facility] 93.1 [facility] LABORATORY MCH 29.6 27.5 - [facility] SU 32.[address] [facility] LABORATORY MCHC 33.8 32.0 - [facility] 35.7 gm/dL [facility] LABORATORY Platelets 189 145 - 357 [facility] x10(3)/[facility] LABORATORY RDWSD 45.6 (H) 36.0 - [facility] 45.0 [facility] LABORATORY RDWCV 14.3 (H) 11.4 - [facility] SU 13.8 % [facility] LABORATORY MPV 9.1 7.6 - 12.9 [facility] LABORATORY nRBC % Auto 0.0 % [facility] LABORATORY nRBC Abs Auto 0.000 0.000 - [place] 0.000 [facility] x10(3)/[facility] LABORATORY Specimen Anatomical Collection Method Collection Time Receive d Time (Source) Location / / Volume Laterality Blood specimen 07/06/2017 2:20 AM 017 2:33 (specimen) EST AM EST Resulting Agency Comment Spec In Lab Daphne Shahid MD HEMATOLOGY ORDERABLES Performing Organization Address City/State/ZIP Code Phon e Number [address] (ABNORMAL) APTT (07/06/2017 2:20 [...] [facility]/ZIP Code Phon e Number [address] POCT Glucose (07/06/2017 2:20 AM EST) P athologist Signature POC Glucose 115 65 - 199 [facility] mg/dL [facility] LABORATORY Comment: Supplemental ranges: <140 [...] [facility]/[place] [address] (ABNORMAL) Cardiac Enzymes (LEB/CGP) (07/06/2017 2:20 AM EST) P athologist Signature Troponin-T 2.13 (H) 0.00 - [place] BOOKER 0.00 ng/mL [facility] LABORATORY Comment: The 99th percentile [...] additional sample may be indicated. Reference: Third Burton Definition of Myocardial Infarction. Journal of the [place] [employer] 2012;60:1581-98 CK, Total 129 0 - 200 unit/L [facility] LABORATORY Specimen Anatomical Collection Method Collection Time Receive d Time (Source) Location / / Volume Laterality Blood specimen 07/06/2017 2:20 AM 017 2:33 (specimen) EST AM EST Resulting Agency Comment Spec In Lab Daphne Shahid MD CHEMISTRY ORDERABLES Performing Organization Address City/State/[place] [address] (ABNORMAL) Hemoglobin A1c (07/06/2017 2:20 AM EST) Analysis Performed At Patho logist Time Signature Hemoglobin A1C 6.8 (H) 4.3 - 5.6 [facility] [...] S67-74 Est Avg Gluc See note mg/dL GRACE [...] with hemoglobinopathies. Additional resources are available on [facility] ADA website. Macario HAMMOND, Ruthann J, Deysi R, et al. ??Tr anslating the A1C assay into estimated average glucose values. ??Diabetes Care 2008:31(8):7749-3809. Specimen Anatomical Collection Method Collection Time Receive d Time (Source) Location / / Volume Laterality Blood specimen 07/06/2017 2:20 AM 017 2:34 (specimen) EST AM EST Resulting Agency Comment Spec In Lab Daphne Shahid MD CHEMISTRY ORDERABLES Performing Organization Address City/State/ZIP Code Phon e Number [facility] (ABNORMAL) Lipid Panel (07/06/2017 2:20 AM EST) Patholo gist Method Time Signature Chol, Total 150 <=239 [place] mg/dL [facility] LABORATORY Triglycerides 129 <=199 [facility] mg/dL [facility] LABORATORY HDL 32 (L) >=40 [place] mg/dL [facility] LABORATORY LDL Cholesterol 92 <=190 [facility] mg/dL [facility] LABORATORY Chol/HDL Ratio 4.7 ratio [facility] LABORATORY Lipid See Note [place] Interpretation [facility] LABORATORY Comment: Lipid management should be guided by a p atient? s ASCVD risk, goals and preferences. ACC/AHA Guidelines recommend high intens ity statin if clinical ASCVD or LDL greater than or equal to 190 mg/dL. http://[employer]/JMD-TMP-Pmwbkksqs Adults aged 40-75 with LDL 70-189 mg/dL should have their 10 year ASCVD risk estimated with the ACC/AHA ASCVD risk es timator http://tools.acc.org/ZHFJP-Ehqo-Iseapnyc r/ Statin should be discussed if risk [...] Address City/State/ZIP Code Phon e Number [address] POCT Glucose (07/06/2017 1:09 AM EST) athologist Signature POC Glucose 121 65 - 199 [place] mg/dL [facility] LABORATORY Comment: Supplemental ranges: <140 mg/dL before meals <180 mg/dL all other times of the day Specimen Anatomical Collection Method Collection Time Receive d Time (Source) Location / / Volume Laterality Blood specimen 07/06/2017 1:09 AM 017 1:09 (specimen) EST AM EST Daphne Shahid MD POINT OF CARE TEST ORDERABLE S Performing Organization Address City/State/ZIP Code Phon e Number [address] POCT Glucose (07/06/2017 12:06 AM EST) athologist Signature POC Glucose 147 65 - 199 [place] mg/dL [facility] LABORATORY Comment: Supplemental ranges: <140 mg/dL before meals <180 mg/dL all other times of the day Specimen Anatomical Collection Method Collection Time Receive d Time (Source) Location / / Volume Laterality Blood specimen 07/06/2017 12:06 7 (specimen) AM EST 12:06 AM EST Daphne Shahid MD POINT OF CARE TEST ORDERABLE S Performing Organization Address City/State/[place] [address] (ABNORMAL) POCT Glucose (07/05/2017 10:56 PM EST) athologist Signature POC Glucose 200 (H) 65 - 199 [place] mg/dL [facility] LABORATORY Comment: Supplemental ranges: <140 mg/dL before meals <180 mg/dL all other times of the day Specimen Anatomical Collection Method Collection Time Receive d Time (Source) Location / / Volume Laterality Blood specimen 07/05/2017 10:56 7 (specimen) PM EST 10:56 PM EST Daphne Shahid MD POINT OF CARE TEST ORDERABLE S Performing Organization Address City/State/[place] [address] (ABNORMAL) POCT Glucose (07/05/2017 10:05 PM EST) athologist Signature POC Glucose 225 (H) 65 - 199 [place] mg/dL [facility] LABORATORY Comment: Supplemental ranges: <140 mg/dL before meals <180 mg/dL all other times of the day Specimen Anatomical Collection Method Collection Time Receive d Time (Source) Location / / Volume Laterality Blood specimen 07/05/2017 10:05 7 (specimen) PM EST 10:05 PM EST Daphne Shahid MD POINT OF CARE TEST ORDERABLE S Performing Organization Address City/State/[place] [address] (ABNORMAL) POCT Glucose (07/05/2017 9:02 PM EST) P athologist Signature POC Glucose 301 (H) 65 - 199 [facility] mg/dL [facility] LABORATORY Comment: Supplemental ranges: <140 mg/dL before meals <180 mg/dL all other times of the day Specimen Anatomical Collection Method Collection Time Receive d Time (Source) Location / / Volume Laterality Blood specimen 07/05/2017 9:02 PM 017 9:02 (specimen) EST PM EST Daphne Shahid MD POINT OF CARE TEST ORDERABLE S Performing Organization Address City/State/[place] [address] XR Chest PA or [...] 474 ms MUSE SYSTEM (Bezet) Calculated P Kathleen 50 degrees MUSE SYSTEM Calculated R Kathleen -28 degrees MUSE SYSTEM Calculated T Kathleen 90 degrees MUSE SYSTEM INTERPRETATION Sinus tachycardia [...] Neutr Abs (ANC) 9.08 (H) 1.70 - [facility] 6.10 [facility] x10(3)/[facility] L LABORATORY Lymphocytes % 7.0 % [facility] LABORATORY Lymphocytes Abs 0.7 (L) 0.9 - 3.2 [facility] x10(3)/[facility] LABORATORY Monocytes % 3.7 % [facility] LABORATORY Monocyte Abs 0.4 0.3 - 0.9 [facility] x10(3)/[facility] LABORATORY Eosinophils % 0.1 % [facility] LABORATORY Eosinophils Abs 0.0 0.0 - 0.4 [facility] x10(3)/[facility] LABORATORY Basophils % 0.2 % [facility] LABORATORY Basophils Abs 0.0 0.0 - 0.1 [facility] x10(3)/[facility] LABORATORY Immature Gran % 0.60 % [place] [...] 0.06 (H) 0.00 - 0.04 x10(3)/[facility] LABORATORY Specimen Anatomical Collection Method Collection Time Receive d Time (Source) Location / / Volume Laterality Blood specimen 07/05/2017 8:20 PM 017 8:27 (specimen) EST PM EST Resulting Agency Comment Spec In Lab Daphne Shahid MD HEMATOLOGY ORDERABLES Performing Organization Address City/State/[place] [address] (ABNORMAL) Hemogram (07/05/2017 8:20 PM EST) Analysis Performed At Patho logist Time Signature WBC 10.3 (H) 4.0 - 9.5 [facility] x10(3)/[facility] LABORATORY RBC 4.64 4.58 - [facility] 5.54 [facility] x10(6)/[facility] LABORATORY Hemoglobin 14.1 13.7 - [facility] 16.5 gm/dL [facility] LABORATORY Hematocrit 40.8 40.5 - [facility] 48.5 % [facility] LABORATORY MCV 87.9 82.9 - [place] 93.1 [facility] [place] LABORATORY MCH 30.4 27.5 - BARBARA OLIVASCK 32.[address] [facility] LABORATORY MCHC 34.6 32.0 - BARBARA ZHAOSU 35.7 gm/dL [facility] LABORATORY Platelets 204 145 - 357 [facility] x10(3)/[facility] LABORATORY RDWSD 46.1 (H) 36.0 - BARBARA SU 45.0 [facility] [place] LABORATORY RDWCV 14.5 (H) 11.4 - [facility] SU 13.8 % [facility] LABORATORY MPV 9.7 7.6 - 12.9 [facility] LABORATORY nRBC % Auto 0.0 % [facility] LABORATORY nRBC Abs Auto 0.000 0.000 - BARBARA SU 0.000 [facility] x10(3)/[facility] LABORATORY Specimen Anatomical Collection Method Collection Time Receive d Time (Source) Location / / Volume Laterality Blood specimen 07/05/2017 8:20 PM 017 8:27 (specimen) EST PM EST Resulting Agency Comment Spec In Lab Daphne Shahid MD HEMATOLOGY ORDERABLES Performing Organization Address City/State/[place] [address] APTT (07/05/2017 8:20 PM [...] Organization Address City/State/[place] [address] (ABNORMAL) Cardiac Enzymes (LEB/CGP) (07/05/2017 8:20 PM EST) athologist Signature Troponin-T 2.11 (H) 0.00 - BARBARA OLIVASCK 0.00 ng/mL [facility] LABORATORY Comment: The 99th percentile [...] additional sample may be indicated. Reference: Third Burton Definition of Myocardial Infarction. Journal of the [place] [employer]iology 2012;60:1581-98 CK, Total 149 0 - 200 unit/L [facility] LABORATORY Specimen Anatomical Collection Method Collection Time Receive d Time (Source) Location / / Volume Laterality Blood specimen 07/05/2017 8:20 PM 017 8:27 (specimen) EST PM EST Resulting Agency Comment Spec In Lab Daphne Shahid MD CHEMISTRY ORDERABLES Performing Organization Address City/State/[place] [address] (ABNORMAL) Magnesium (07/05/2017 8:20 PM EST) P athologist Signature Magnesium 0.68 (L) 0.69 - 1.07 [facility] mmol/L [facility] LABORATORY Specimen Anatomical Collection Method Collection Time Receive d Time (Source) Location / / Volume Laterality Blood specimen 07/05/2017 8:20 PM 017 8:27 (specimen) EST PM EST Resulting Agency Comment Spec In Lab Daphne Shahid MD CHEMISTRY ORDERABLES Performing Organization Address City/State/[place] [address] (ABNORMAL) Basic Metabolic Panel (non-fasting) (07/05/2017 8:20 PM EST) P athologist Signature Glucose Lvl 321 (H) 65 - 199 [facility] mg/dL [facility] LABORATORY [...] [facility] Estimated GFR >60 >=60 [facility] LAB[facility]ATORY Comment: The reported eGFR should be multiplied b y 1.2 for patients. The MDRD is not an appropriate measure o f renal function for patients with body mass extremes or in patients with acute kidney failure. http://[employer]/DHnkdep http://[employer]/DHMCnkf Specimen Anatomical Collection Method Collection Time Receive d Time (Source) Location / / Volume Laterality Blood specimen 07/05/2017 8:20 PM 017 8:27 (specimen) EST PM EST Resulting Agency Comment Spec In Lab Daphne Shahid MD CHEMISTRY ORDERABLES Performing Organization Address City/State/ZIP Code Phon e Number [address] (ABNORMAL) POCT Glucose (07/05/2017 7:32 PM EST) P athologist Signature POC Glucose 296 (H) 65 - 199 [facility] mg/dL [facility] Comment: Supplemental ranges: <140 [...] [facility]/[place] [address] CARDIAC CATHETERIZATION (07/05/2017 6:47 PM EST) Anatomical Region Laterality Modality Other Specimen (Source) Anatomical Location Collection Method / Collectio n Time Received Time / Laterality Volume Narrative 07/05/2017 7:27 PM EST ?[facility] ? Cardiac Cathete rization/Intervention Report ? Patient Name: Natalya, Gregory ? Procedure Date: 07/05/2017 ? A #: [id number] ? Primary Physician: Clarisa, Jet T ? Case #: [id number] ? File Name: [id number] ? Catheterization Order Number: [id number] ? [facility] ? Final Report [place], [place] ? Patient Name: ? Gregory Natalya ?ID#: ?[id number] ? : ?1945 ? Procedure Date: ? [...] presented with: non -STEMI (w/i 7 days). [place] ?Cardiovascular Society angina c lass was IV. [...] nurse. ??Case time = 00:42. ?Barbara Madison d the coronary angiography, left heart ?catheterization, access site angio graphy and IABP insertion in manager cardiac cath. ? Jet Mckenna M.D. ? Electronically Signed by: Jet bunch M.D. ? Report Finalized: 07/05/2017 ??19:23 ? Report Last Ammended: 10/26/2017 ??10:29 ? Procedure Note Jet Mckenna MD - 10/26/2017Formatt ing of this note might be different from the original. [facility] Cardiac Catheterization/Intervention Re port Patient Name: Gregory Hoang Procedure Date: 07/05/2017 A #: [id number] Primary Physician: Jet Mckenna Case #: [id number] File Name: [id number] Catheterization Order Number: [id number] [facility] Final Report [place], [place] Patient Name: Gregory Hoang ID#: [id number] : 1945 Procedure Date: July 05, [...] presented with: non-STEMI ( w/i 7 days). [place] [employer] angina class was IV. No [...] site angiograph y and IABP insertion in manager cardiac cath. Jet Mckenna M.D. Electronically Signed [...] AM EST Procedure: ?Transthoracic Echocardiogram Patient: ?NATALYA Mcocllum ? (Age): 1945(72y) Med Rec#: ? [id number] ?Sex: ?M ? [place] Loc: ? [facility] ?Ht / Wt: ??173(cm)/86(kg) Pt. Loc: ?CCU ? BSA: ?2 Study Date: ?? 07/05/2017 ?Pt. Type: Inpatient Tape: ? Referring: Daphne Shahid ([id number]) Referring: MANDA ALCANTAR Reading: Blade Preston ([id number]) Contract Graphic Designer: Dayami Paula BA, [facility] Diagnosis: [...] E-wave Vmax ?0.8 ?m/sec ? MV deceleration [id number] ?msec ? MV A-wave Vmax ?0.8 ?m/sec [...] ? Mid-Inferior ?Akinetic ? Mid-Inferoseptal ?Hypokinetic ? [place]-Septal ? Akinetic ? [place]-Anterior ? Hypokinetic ? [place]-Lateral ?Hypokinetic ? [place]-Inferior ? Akinetic ? [place]-Tip ?Akinetic ? This report has been electronically sign ed by: _ Blade Preston MD ? 07/06/2017 08 :53:15 Images [facility] Procedure Note Blade Preston MD - 07/06/2017Formatt ing of this note might be different from the original. Procedure: Transthoracic Echocardiogram Patient: NATALYA MCBRIDE(Age): [birth year]72y) Med Rec#: [id number] Sex: M [place] Loc: [facility] Ht / Wt: 173(cm)/86(kg) Pt. Loc: CCU BSA: 2 Study Date: 07/05/2017 Pt. Type: Inpatie nt Tape: Referring: Daphne Shahid ([id number]) Referring: MANDA ALCANTAR Reading: Blade Preston ([id number]) Contract Graphic Designer: Dayami Paula BA, [facility] Diagnosis: [...] MV E-wave Vmax 0.8 m/sec MV deceleration [id number] msec MV A-wave Vmax 0.8 m/sec MV [...] Hypokinetic Mid-Posterolateral Hypokinetic Mid-Inferior Akinetic Mid-Inferoseptal Hypokinetic [place]-Septal Akinetic [place]-Anterior Hypokinetic [place]-Lateral Hypokinetic [place]-Inferior Akinetic [place]-Tip Akinetic This report has been electronically sign ed by: _ Blade Preston MD 07/06/2017 08:53:15 Images reviewed and interpretation verif ied [facility] Cardiac Ultrasound Laboratory Daphne Shahid MD ECHO ORDERABLES Differential, Automated (07/05/2017 4:55 PM EST) athologist Signature Neutrophils % 77.0 % [facility] LABORATORY Neutr Abs (ANC) 5.26 1.70 - [facility] 6.10 [facility] x10(3)/[facility] LABORATORY Lymphocytes % 13.3 % [facility] LABORATORY Lymphocytes Abs 0.9 0.9 - 3.2 [facility] x10(3)/[facility] LABORATORY Monocytes % 8.2 % [facility] LABORATORY Monocyte Abs 0.6 0.3 - 0.9 [facility] x10(3)/[facility] LABORATORY Eosinophils % 0.7 % [facility] LABORATORY Eosinophils Abs 0.0 0.0 - 0.4 [facility] x10(3)/[facility] LABORATORY Basophils % 0.4 % [facility] LABORATORY Basophils Abs 0.0 0.0 - 0.1 [facility] x10(3)/[facility] LABORATORY Immature Gran % 0.40 % [facility] Comment: Immature granulocytes(IG's)percentage an d absolute count will include metamyelocytes, myelocytes, and promyelo cytes. Blood smears from CBCs yielding IG's will be scanned manually for concor danhaley. If this scan disagrees with the automated IG or if promyelocytes are not ed, a manual differential will be performed. Melisa Gran Abs 0.03 0.00 - 0.04 x10(3)/[facility] LABORATORY Specimen Anatomical Collection Method Collection Time Receive d Time (Source) Location / / Volume Laterality Blood specimen 07/05/2017 4:55 PM 017 5:24 (specimen) EST PM EST Resulting Agency Comment Spec In Lab Daphne Shahid MD HEMATOLOGY ORDERABLES Performing Organization Address City/State/Z[place] [address] (ABNORMAL) Hemogram (07/05/2017 4:55 PM EST) Analysis Performed At Patho logist Time Signature WBC 6.8 4.0 - 9.5 [facility] x10(3)/[facility] LABORATORY RBC 4.67 4.58 - [facility] 5.54 [facility] x10(6)/[facility] LABORATORY Hemoglobin 14.0 13.7 - [facility] 16.5 gm/dL [facility] LABORATORY Hematocrit 41.0 40.5 - [facility] 48.5 % [facility] LABORATORY MCV 87.8 82.9 - [facility] 93.1 [facility] [place] LABORATORY MCH 30.0 27.5 [facility] [facility] LABORATORY MCHC 34.1 32.0 - [facility] 35.7 gm/dL [facility] LABORATORY Platelets 197 145 - 357 [facility] x10(3)/[facility] LABORATORY RDWSD 46.4 (H) 36.0 - [facility] 45.0 [facility] [place] LABORATORY RDWCV 14.5 (H) 11.4 - [facility] 13.8 % [facility] LABORATORY MPV 9.7 7.6 - 12.9 [facility] LABORATORY nRBC % Auto 0.0 % [facility] LABORATORY nRBC Abs Auto 0.000 0.000 - BARBARA DAVIS 0.000 [facility] x10(3)/[facility] LABORATORY Specimen Anatomical Collection Method Collection Time Receive d Time (Source) Location / / Volume Laterality Blood specimen 07/05/2017 4:55 PM 017 5:24 (specimen) EST PM EST Resulting Agency Comment Spec In Lab Daphne Shahid MD HEMATOLOGY ORDERABLES Performing Organization Address City/State/[place] [address] (ABNORMAL) Cardiac Enzymes (LEB/CGP) (07/05/2017 4:55 PM EST) athologist Signature Troponin-T 1.69 (H) 0.00 - BARBARA DAVIS 0.00 ng/mL [facility] LABORATORY Comment: The 99th percentile [...] additional sample may be indicated. Reference: Third Burton Definition of Myocardial Infarction. Journal of the [place] College [employer]iology 2012;60:1581-98 CK, Total [...] [facility]/ZIP Code Phon e Number [address] (ABNORMAL) pro-Brain Natriuretic Peptide (07/05/2017 4:55 PM EST) athologist Signature ProBNP 1,598 (H) <=125 [facility] pg/mL [facility] LABORATORY Specimen Anatomical Collection Method Collection Time Receive d Time (Source) Location / / Volume Laterality Blood specimen 07/05/2017 4:55 PM 017 5:24 (specimen) EST PM EST Resulting Agency Comment Spec In Lab Daphne Shahid MD CHEMISTRY ORDERABLES Performing Organization Address City/[facility]/ZIP Code Phon e Number [address] Magnesium (07/05/2017 4:55 PM EST) athologist Signature Magnesium 0.78 0.69 - 1.07 [facility] mmol/L [facility] LABORATORY Specimen Anatomical Collection Method Collection Time Receive d Time (Source) Location / / Volume Laterality Blood specimen 07/05/2017 4:55 PM 017 5:24 (specimen) EST PM EST Resulting Agency Comment Spec In Lab Daphne Shahid MD CHEMISTRY ORDERABLES Performing Organization Address City/[facility]/ZIP [facility] [place] [address] (ABNORMAL) Basic Metabolic Panel (non-fasting) (07/05/2017 4:55 PM EST) P athologist Signature Glucose Lvl 230 (H) 65 - 199 [facility] mg/dL [facility] LABORATORY [...] [facility] Estimated GFR >60 >=60 [facility] LABORATORY Comment: The reported eGFR should be multiplied b y 1.2 for patients. The MDRD is not an appropriate measure o f renal function for patients with body mass extremes or in patients with acute kidney failure. http://[employer]/DHnkdep http://[employer]/[facility] OKEENEnkf Specimen Anatomical Collection Method Collection Time Receive d Time (Source) Location / / Volume Laterality Blood specimen 07/05/2017 4:55 PM 017 5:24 (specimen) EST PM EST Resulting Agency Comment Spec In Lab Daphne Shahid MD CHEMISTRY ORDERABLES Performing Organization Address City/[facility]/[place] [address] (ABNORMAL) APTT (07/05/2017 4:55 [...] Organization Address City/State/[place] [address] (ABNORMAL) POCT Glucose (07/05/2017 4:53 PM EST) P athologist Signature POC Glucose 208 (H) 65 - 199 [facility] mg[facility]dL [facility] Comment: Supplemental ranges: <140 [...] [facility]/[place] [address] EKG 12 Lead (07/05/2017 4:32 PM EST) Component Value Ref Range Test Analysis Performed Pathologis t Method Time At Signature Ventricular rate 97 BPM MUSE SYSTEM Atrial Rate 97 BPM MUSE SYSTEM P-R Interval 148 ms MUSE SYSTEM QRS Duration 96 ms MUSE SYSTEM Q-T Interval 364 ms MUSE SYSTEM QTC Calculated 462 ms MUSE SYSTEM (Bezet) Calculated P Kathleen 48 degrees MUSE SYSTEM Calculated R Kathleen -33 degrees MUSE SYSTEM Calculated T Kathleen 98 degrees MUSE SYSTEM INTERPRETATION Normal sinus [...] (Intra-Procedure), Routine cardioplegic solution (PLEGISOL) induction New 07/07 3:59 PM EST 250 mLs solution CONTINUOUS PRN, Starting on Wed07/07/17 at 1559, Until Wed07/07/17 at 1821, Intra-Operative (Intra-Procedure) cardioplegic solution (PLEGISOL) Restarted 07/07/2017 4:39 PM EST 90 mLs maintenance solution CONTINUOUS PRN, Starting on Wed07/07/17 at 1629, Until Wed07/07/17 at 182, Intra-Operative (Intra-Procedure) Restarted 07/07/2017 4:32 PM EST 85 mLs New 07/07/2017 4:29 PM EST 65 mLs ceFAZolin (ANCEF) 2g in dextrose 5% New 07/14/2017 9:32 AM EST 2 g 200 mL/hr 100 mL 2 g, Intravenous, EVERY 8 HOURS, First dose on Wed07/12/17 at 1800, Until Discontinued, Administer over 30 Minutes, Indication for (Active or Suspected): Skin/Skin Structure New 07/14/2017 1:43 AM EST 2 g 200 mL/hr New 07/13/2017 5:38 PM EST 2 g 200 [...] mg 0841 (Given - Provider: Em Jones, VAMSI) 0922 (Given - Provider: Myrna triplett RN) [...] Reason: Contraindicated) 09 (See Alternative - Provider: Myrna Young RN) [...] Ale Rangel RN)0155 (Stopped - Provider: Ale Rangel, VAMSI)0901 (New [...] Indication for (Active or Suspected): Skin/Skin Structure 180 (Stopped - Provider: Em richter RN) furosemide [...] mg (CANCELED) 0521 (Given - Provider: Carmen Berry, RN)1338 (Given - Provider: More Luther RN)2201 (Given - Provider: Ale Rangel, RN) 0615 (Given - Provider: Ale Rangel , RN)1311 (Given - Provider: Em Jones, VAMSI) 12.5 mg, Oral, EVERY 8 HOURS SCHEDULED, First dose (after last modification) on Wed07/11/17 at 1400, Until Discontinued, Routine meTOPROLOL tartrate (LOPRESSOR) tablet 25 mg 2000 (Given - Provider: Denice Jacobson, RN) 09 (Given - Provider: Myrna triplett [...] 2200 (Given - Provider: Ale Rangel, RN) 2130 [...]
Routine documented in this encounter Care Teams Straddle Bug Driver Relationship Specialty Start Date End Date Lovely Vicente MD PCP - General 04/16/[address] [place] [address] [address] [place] [address] documented as of this encounter
--- OUTSIDE RECORDS SUMMARY | 2022-03-27 09:28 | XMS_ITS | Encounter Summary ---
:1945 Author Organization [facility] [place] [address] Care Team Providers Name Role Phone Lovely Vicente MD Primary Care Provider Encounter Details Date Type Department Care Team Description 11/28/2016 Telephone Dermatology at [facility] Rigoberto Garcia III, [address] [place] [address] [facility] [phone] [facility] [place] [address] [place], [place] [address] (Wo rk) Social History Tobacco [...] provider. Rigoberto Garcia MD Section of Dermatology [facility] documented in this encounter Plan of Treatment Upcoming Encounters Date Type Specialty Care Team Description 05/28/2022 Appointment Cardiology Zulma Dolan MD [facility] [address] [place] [address] (Wo rk) 05/28/2022 Laboratory Appointment Lab 05/28/2022 Office Visit Cardiology Zulma Dolan MD [facility] [place] [address] Liz Poole PA [facility] [place] [address] 06/10/2022 Office Visit Dermatology Laura Scherer MD [facility] [address] [place], [place] [address] (Wo rk) documented as of this encounter Visit Diagnoses Not on filedocumented in this encounter Care Teams Message Clerk Relationship Specialty Start Date End Date Lovely Vicente MD PCP - General 04/16/[address] [place] [address] documented as of this encounter
--- OUTSIDE RECORDS SUMMARY | 2022-03-27 09:28 | XMS_ITS | Encounter Summary ---
:1945 Author Organization [facility] [place] [address] Care Team Providers Name Role Phone Lovely Vicente MD Primary Care Provider Reason for Visit Reason Onset Date Comments Pre Procedure Call 12/02/2016 Encounter Details Date Type Department Care Team Description 12/02/2016 Telephone Dermatology at [facility] Mira James LPN Pre Procedure Call [address] [place] [address] Social History Tobacco Use Types Packs/Day [...] Cardiology Zulma Dolan MD [facility] [place], [place] [address] (Wo lissa) 05/28/2022 Laboratory Appointment Lab 05/28/2022 Office Visit Cardiology Zulma Dolan MD [facility] [place] [address] Liz Poole PA [facility] [place] [address] 06/10/2022 Office Visit Dermatology Laura Scherer MD [facility] DR [address], [place] [address] (Wo rk) documented as of this encounter Visit Diagnoses Not on filedocumented in this encounter Care Teams Slip Box Changer Relationship Specialty Start Date End Date Lovely Vicente MD PCP - General 04/16/[address] [place] [address] documented as of this encounter
--- OUTSIDE RECORDS SUMMARY | 2022-03-27 09:28 | XMS_ITS | Encounter Summary ---
:1945 [place] [address] Care Team Providers Name Role Phone Lovely Vicente MD Primary Care Provider Reason for Visit Auth/Cert Specialty Diagnoses / Procedures Referred By Contact Refer red To Contact Diagnoses STEMI (ST elevation myocardial infarction) NSTEMI STEMI Procedures CARDIAC CATHETERIZATION NAYE IPI Referral ID Status Reason Start Date Expiration Date Visits Requ ested Visits Authorized [id number] 1 1 Encounter Details Date Type Department Care Team Description 07/05/2017 Surgery Bead Inspector Jet Guan, CARDIAC CATHETERIZATION [facility] [place] [address] CARDIOLOGY DEPT. [phone] [place], [place] [address] (Wo rk) Social History Tobacco [...] this encounter Discharge Summaries Martha Teague S, WRAPPER OPERATOR - 07/14/2017 9:38 AM EST Inpatient [...] , @ 1:20p Patient to follow-up with Turkey Roll Maker/heart failure team in one week. An appointment will be made for you. You may call [phone] Patient to follow-up with Cardiac Surgery, Dr. Yuan Webber, in ~ 4 weeks with CXR, EKG. Inpatient Provider Contact Information: [facility] Section of Cardiac Surgery [facility] [address] FAX [phone] Discharge Diagnoses (Hospital Problems) Primary Diagnoses: CAD [...] by mouth daily. 90 tablet 3 07/05/2017 [id number] ??? ascorbic acid, vitamin C, (VITAMIN C) [...] course, he was taken emergently to the mobile lab technician for an ongoing STEMI. An [...] not take or discontinue any prescription or lfzj-rvz-ytjzfah medications without asking your doctor or pharmacist [...] have your insulin doses adjusted. [facility] Endocrine clinic office Discharge Instructions: Call your doctor if: You have a fever of greater than 101 degrees, shaking chills, if you develop redness or drainage from your incision sites, or if you have questions. Please call your surgeon's office if you have any discharge or drainage from your chest incision. Your surgeon, Dr. Yuan Webber and/or the Cardiac Surgery Physician Vegetable Washer Team may be reached at . Weight: [...] Dr. Yuan Webber. You may use a [place] Track or treadmill but avoid any pulling [...] friends, go to a movie, go to gnosticism, etc. Heavy activities: No hunting, skiing, jogging, snow shoveling, snowmobiling, lawn mowing, swimming, golf or tennis until after your return appointment with the surgeon. Do not ride motorcycles, Mobile Action tractors or horses. Avoid the use of [...] should resume a low fat, low cholesterol, Citizen Of The [place] Heart Association Diet/Diabetic diet. Driving: No driving [...] , @ 1:20p Patient to follow-up with Turkey Roll Maker/heart failure team in one week. Appointment will be made for you. You may call [phone] Patient to follow-up with Cardiac Surgery, Dr. Yuan Webber, in ~ 4 weeks with CXR, EKG. Cardiac Rehabilitation: Gregory Hoang was seen today regarding participation in the outpatient Phase 2 Cardiac Rehabilitation at [facility]. The patient agrees to a referral to this program. The referral will be sent at discharge and the patient should be contacted by the Program within 1- 2 weeks from discharge. ?? Future Appointments and Orders Future Appointments Provider Department Dept Phone 09/07/2017 3:00 PM LAB, THREE L Lab 3L [facility] [phone] 09/07/2017 4:00 PM Luz Prescott MD Endocrinology at [facility] [phone] Future Orders Complete By Expires EKG 12 Lead [EKG1 Custom] 08/14/2017 02/13/2018 Process Instructions: Scheduling Instructions: Questions: Which DH location will this be performed?: [facility] Is a rhythm strip needed?: No If EKG Reason is Pre-op Evaluation, indicate diagnosis for surgery.: XR Chest PA & Lateral (Generic) [[id number] Custom] 08/14/2017 02/13/2018 Process Instructions: Scheduling Instructions: Questions: Where will study be performed?: [facility] Portable exam?: Reason for exam and clinical history: CABG x 3 Other pertinent information: Stat read required?: Date of injury if applicable: Requested Time: Referral to Cardiac Rehab [EAC269 Custom] As directed Process Instructions: If no progress note charted, please enter Clinical details in comments. Scheduling Instructions: Questions: My question or request is: s/p CABG. Cardiac rehab at [facility] Referral to Home Health - at DISCHARGE [AZM2477 CPT(R)] As directed Process Instructions: Scheduling Instructions: Comments: DOCUMENTATION FOR VNA SERVICES (INCLUDING THOSE PATIENTS WITH MEDICARE COVERAGE REQUIRING HOME VNA SERVICES AND/OR HOSPICE SERVICES) PATIENT'S LOCATION: Gregory Hoang [address] [place] [address] [place] [address] (home) Telephone Information: Doughnut Icer Machine's Name: self In discussion with the attending physician, it is certified that this patient is under their care and that they, or a Nurse Practitioner, or Physician Vegetable Washer who is working directly with them, had [...] [facility] ([facility] [place] [facility] in [place] PHONE: [phone] FAX: [phone] RN orders: Cardiopulmonary assessment, incisional assessment, assess vital signs, assessment of rehab progress, medication management and effectiveness, home safety evaluation. Please draw INR if indicated and send result to:Dr Vicente [phone] PT ORDERS: Continue rehab for endurance, gait stability and strength with mobility and transfers. Home safety evaluation. Home exercise program if appropriate. Start of Care Date:24-48 hours after discharge SPECIAL INSTRUCTIONS: For any follow up questions, needs, or issues please call the Cardiac Surgery Office at [phone] FOR MEDICARE ONLY: (please delete this section [...] OR AFTER 07/17/2017 Signed: Martha Teague APRN [facility] Section of Cardiac Surgery [facility] [address] FAX [phone] Date: 07/14/2017 CC: MD Ivania Cr Betsy, PA [address] [place] [phone] documented in this encounter Discharge Instructions Discharge [...] have your insulin doses adjusted. [facility] Endocrine clinic office Patient InstructionsStMartha mcdonald APRN [...] not take or discontinue any prescription or itqe-khg-qozyyij medications without asking your doctor or pharmacist [...] have your insulin doses adjusted. [facility] Endocrine clinic office ? Discharge Instructions: ?? Call your doctor if: You have a fever of greater than 101 degrees, shaking chills, if you develop redness or drainage from your incision sites, or if you have questions. Please call your surgeon's office if you have any discharge or drainage from your chest incision. Your surgeon, Dr. Yuan Webber and/or the Cardiac Surgery Physician Vegetable Washer Team may be reached at . ?? [...] Dr. Yuan Webber. You may use a [place] Track or treadmill but avoid any pulling [...] friends, go to a movie, go to gnosticism, etc. ?? Heavy activities: No hunting, skiing, jogging, snow shoveling, snowmobiling, lawn mowing, swimming, golf or tennis until after your return appointment with the surgeon. Do not ride motorcycles, griddig's tractors or horses. Avoid the use of [...] should resume a low fat, low cholesterol, Citizen Of [place] Heart Association Diet/Diabetic diet. ?? Driving: No [...] @ 1:20p ?? Patient to follow-up with Turkey Roll Maker/heart failure team in one week. An appointment has been made for you, you can call [phone] ?? Patient to follow-up with Cardiac Surgery, Dr. Yuan Webber, in ~ 4 weeks with CXR, EKG. ? Cardiac Rehabilitation: Gregory Hoang??was seen today regarding participation in the outpatient Phase 2 Cardiac Rehabilitation at [facility]. ?? The patient agrees to a referral to this program.? The referral will be sent at discharge and the patient should be contacted by the Program within 1- 2 weeks from discharge. ? Future Appointments and Orders Future Appointments Provider Department Dept Phone ?? 09/07/2017 3:00 PM LAB, THREE L Lab 3L [facility] [phone] ?? 09/07/2017 4:00 PM Luz Prescott MD Endocrinology at [facility] [phone] Future Orders Complete By Expires ?? EKG 12 Lead [EKG1 Custom] 08/14/2017 02/13/2018 ?? Process Instructions: ? Scheduling Instructions: ? Questions: ? Which location will this be performed?: [facility] ?? Is a rhythm strip needed?: No ?? If EKG Reason is Pre-op Evaluation, indicate diagnosis for surgery.: ?? XR Chest PA & Lateral (Generic) [[id number] Custom] 08/14/2017 02/13/2018 ?? Process Instructions: ? Scheduling Instructions: ? Questions: ? Where will study be performed?: [facility] ?? Portable exam?: ?? Reason for exam and clinical history: CABG x 3 ?? Other pertinent information: ?? Stat read required?: ?? Date of injury if applicable: ?? Requested Time: ?? Referral to Cardiac Rehab [RPA079 Custom] As directed ? Process Instructions: ?? If no progress note charted, please enter Clinical details in comments. ?? Scheduling Instructions: ? Questions: ? My question or request is: s/p CABG. Cardiac rehab at [facility] ? Arrangements for VNA/home care: As above. [...] RN - 07/14/2017 2:34 PM EST The patient/ocean import representative has been provided a list of Home Health Agencies/DME vendors which serve their preferred geographic area. A letter describing our affiliations was reviewed with them and theywere educated about their right to choose where referrals are placed. Patient requests referral to [facility] [employer]. PHONE: [phone] FAX: [phone] Expected date of discharge: 07/14 Referral routed to the Phone Engineer for matching with agency/vendor and to [...] have your insulin doses adjusted. [facility] Endocrine clinic office Kathie Carrera APRN [facility] Endocrinology Diabetes Management Pager [phone] minutes of this 35 minute visit was spent with the patient in counseling on diabetes and treatment plan, reviewing all glucose and insulin data as well as relevant laboratory results with the patient, and coordination of care on the inpatient unit including nursing and primary team. 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 A letter describing our affiliations was reviewed with them and theywere educated about their right to choose where referrals are placed. Patient requests referral to : Yasmani [facility]ung[facility] ([facility] [place] [facility]-is in [place]) PHONE: [phone] FAX: [phone]. Expected date of discharge: 07/14/17 Referral routed to the Phone Engineer for matching with agency/vendor and to [...] to follow Katerin Azul APRN [facility] Endocrinology Diabetes Management Pager [phone] minutes of this 25 minute visit [...] of infiltration/extravasation Discussed plan of care with TRAVELING CONSTRUCTION SUPERINTENDENT and RN. Elevate exrtemity and apply intermittent Warm compresses. Name of MD contacted Dr. Shaw Brown 07/13/2017 @ 0655 Name of RN contacted Ale Rangel RN Name of Pharmacist if consulted NA Name of Plastics MD ( if consulted) NA (Mandatory photo for infiltrations/ extravasations scoring a stage 2 or greater, but recommended forstage 1)( include measuring tape and identifier in the photo) CONTINUOUS MINING MACHINE COAL MINER CARING FOR THIS PATIENT WILL CONTINUE TO [...] measuring tape and identifier in the photo) CONTINUOUS MINING MACHINE COAL MINER CARING FOR THIS PATIENT WILL CONTINUE TO [...] regard to both infiltrates addressed by this internal communications writer.All of Mr. Hoang's responses were entirely appropriate. Images of infiltrates attached here. Martha Sharp APRN - 07/13/2017 8:01 AM EST Cardiac Surgery Progress Note: ID: [id number] 72 year old male POD#6 s/p CABGx3 [...] discharge. ?? I have met with the patient/ocean import representative to discuss discharge planning needs. I have provided the [facility], Office of Care Management letter from the Electronic Sensing Equipment Assembler pertaining to rehab referrals. I have also provided a letter describing our affiliations within the [facility] and educated them about their right to choose where referrals are placed. ?? I reviewed the different levels of rehab including SNF, swing, acute and LTAC with the patient/ocean import representative. ?? The patient/ocean import representative has been provided a list of facilities within their preferred geographic area. ?? I have requested that the patient/ocean import representative provide at least three choices for referral. ?? The patient/ocean import representative have requested referrals to: ?? 1. . ?? 2. [facility] ?? 3. More to be entered ?? Expected date of discharge: 07/14 Note routed to Phone Engineer who will communicate referrals to facilities and [...] hours. If BG remains greater than 240, [id number] units (no more than three times) & [...] hours. If BG remains greater than 240, [id number] units (no more than three times) & call for new basal insulin orders. ??If less than 240 after two hours, give no insulin and resume prior schedule. Will continue to follow Katerin Azul APRN [facility] Endocrinology Diabetes Management Pager [phone] minutes of this 35 minute visit was spent with the patient in counseling on diabetes and treatment plan, reviewing all glucose and insulin data as well as relevant laboratory results with the patient, and coordination of care on the inpatient unit including nursing and primary team. Makayla Stevenson APRN - 07/12/2017 9:52 AM EST Cardiac Surgery Progress Note: ID: [id number] 72 year old male POD#5 s/p CABGx3 [...] PM EST Patient arrived from [facility]. VSS. MSI dressing pulled off with [...] AM EST Cardiac Surgery Progress Note: ID: [id number] 72 year old male POD#4 s/p CABGx3 [...] hours. If BG remains greater than 240, iidqqk67 units (no more than three times) & [...] AM EST Cardiac Surgery Progress Note: ID: [id number] 72 year old male POD#3 s/p CABGx3 [...] Gas) No results found for: PHART, PO2ART, ZZE4KFQ Assessment/Plan: 72 year old male POD#3 s/p [...] Thao - 07/09/2017 6:29 PM EST Marine Engineer Cpvec Encounter Note Patient Name: Gregory Hoang : [id number] MR#: [id number] Admit Date: 07/05/2017 4:20 PM Hospital Day 4 days Narrative: Patient was sitting in chair, hugging heart pillow, opened his eyes, nodding to come into room Assessment: Patient was sleepy. Intervention and Outcome: Introduced woods laborer services and patient reached his hand out in appreciation. Follow-up: Marine Engineer Cpvec remains available for support. Time in Direct [...] EST Report given to medical staff services manager to cover care Maddison Cee PA - 07/09/2017 9:00 AM EST Cardiac Surgery Progress Note: ID: [id number] 72 year old male POD#2 s/p CABGx3 [...] when IABP d/c'ed. Gretchen Carolina, PT Pager [phone] Maddison Cee PA - 07/08/2017 11:27 AM EST Cardiac Surgery Progress Note: ID: [id number] 72 year old male POD#1 s/p CABGx3 [...] place in R femoral. No hematoma. HOSPITAL CORPSMAN- Intact Psych- Anxious Skin- Dry, no peripheral [...] IABP in place in R femoral. HOSPITAL CORPSMAN- Intact Psych- Anxious Skin- Dry, no peripheral [...] note for details. DAPHNE SHAHID MD Pager [phone] Jet Mckenna MD - 07/05/2017 6:48 PM EST Preliminary Cardiac Catheterization Procedure Note: Procedure(s) performed: Left heart cath, IABP insertion Access: Right SEWING MACHINE OPERATOR SEMIAUTOMATIC-->8fr IABP A time-out was conducted prior to [...] effect. Heparin gtt maintained. Pt transferred to mobile lab technician. documented in this encounter H&P Notes Daphne Shahid MD - 07/05/2017 6:08 PM EST CARDIOLOGY HISTORY & PHYSICAL EXAM Date of Admission: 07/05/2017 ( Hospital Day 0 days ) Responsible Attending: Daphne Shahid MD PCP: Lovely Vicente MD PCP#: [phone] Patient Active Problem List Diagnosis Code ??? [...] heparin drip and transferred to [facility]. While there, continued sob, question of chest pain. Stat TTE showing WMA diffusely and EF around 20%. No significant valvular disease. Taken to the mobile lab technician urgently for ongoing STEMI. [facility] Labs: INR 1.0 WBC 5.88 Hgb 12.9 [...] monitor I/O - s/p lasix in the mobile lab technician, redose to aim net neg [...] Medicine, PGY-2 Cardiology S1, Team Pager # [phone] CARDIOLOGY ATTENDING NOTE Patient: Gregory Hoang Date [...] amenable for PCI. DAPHNE SHAHID MD Pager [phone] documented in this encounter Miscellaneous Notes Consult Note - Daphne Shahid MD - 07/14/2017 11:46 AM EST Heart Failure Service Inpatient Consult Note Gregory Hoang Date of : 1945 Age: 72 y.o. Today's date: 07/14/17 PCP: Lovely Vicente MD INSTRUCTIONAL TECHNOLOGY COORDINATOR: None Place of Service: [facility] Reason for Consult: Dr. Webber has requested [...] following studies: EKG 07/14/17: NSR 75 bpm, BD SPECIAL EDUCATION TEACHER anterior infarct, LAD CXR 07/11/17: FINDINGS: Sternotomy wires. The patient has been extubated, left chest tube removed, and Lihue-Suzi catheter removed since the 07/07/2017 study. Atelectasis [...] was discussed with Zehra. Jaden Kelley MD Cardiology Nurse Pager [phone] CARDIOLOGY ATTENDING NOTE Patient: Gregory Hoang Date [...] heart failure clinic. DAPHNE SHAHID MD Pager [phone] Plan of Care - Alden Chavarria PTA [...] home with assist Alden Chavarria PTA Pager: [phone] Inpatient Physical Therapy Problem: Acute Rehab Services [...] sit/sit to supine -- Bed Mobility Goal, [place] Level supervision required -- Bed Mobility Goal, [...] - 3 days -- Gait Training Goal, [place] Level supervision required -- Gait Training Goal, [...] days -- Transfer Training Goal, Activity Type eoz-bg-obiyq/wltya-zo-pip;ooq-la-jbjby/xlojf-nq-cso;toilet -- Transfer Train Goal, [place] Level supervision required -- Transfer Training Goal, [...] keeping present for 2 days per family. Statistical Clerk Advertising noted of frustrations, house keeping sent to room. Patient offered showered twice, refused. at bedside, frustrated that shower not complete, informed that patient had refused several times. requesting to see FREELANCE TRANSLATOR, paged sent to Martha, will come to bedside (middle of consult). not willing to wait, Martha notified that family had gone home. Encouraged to come for morning rounds a t 8am. Diabetes team at bedside - insulin adjustments made. Call cabello in reach. Continue to monitor. PLAN MOVING FORWARD: Ambulate, dressing changes BID, Please change drsg at 4am per Martha FREELANCE TRANSLATOR request. INDIVIDUALIZED FALL PREVENTION INTERVENTIONS: Patient-specific fall [...] levels on the lower side, 60ml of [place] juice given after a FS of 80. [...] 07/13/17 0502 Interdisciplinary Rounds/Family Conf Participants case reviewer;dietitian/nutrition services;nursing;occupational therapy;patient;pharmacy;physical therapy;physician Plan of Care - [...] monitoring required during toileting and ADLs]: RN TRAVELING CONSTRUCTION SUPERINTENDENT Surveillance [continuous indirect monitoring]: Barrett Monitor CPG [...] Anticipated Discharge Disposition: home with assist Pager: [phone] CLARISSA SEGAL, PT 07/12/2017 Physical Therapy Rehabilitation [...] to sit/sit to supine Bed Mobility Goal, [place] Level supervision required Bed Mobility Goal, Additional Goal adheres to psternal precautions for transfer Goal: Gait Training Goal Stand Alone Therapy Goal Outcome: Ongoing (Interventions Implemented as Appropriate) 07/12/17 1225 Gait Training Goal Gait Training Goal, Date Established 07/12/17 Gait Training Goal, Time to Achieve 2 - 3 days Gait Training Goal, [place] Level supervision required Gait Training Goal, Assist [...] 3 days Transfer Training Goal, Activity Type vrf-aa-tnhcr/bjxvo-oz-zle;jkt-da-myxfk/ornif-ad-gsf;toilet Transfer Train Goal, [place] Level supervision required Transfer Training Goal, Additional Goal adheres to sternal precautions during transfer Consult Note - Octavia Vaughn RN - 07/12/2017 10:50 AM EST [facility] CARDIAC REHABILITATION Gregory Honag was seen today regarding participation in the outpatient Phase 2 Cardiac Rehabilitation at [facility]. The patient agrees to a referral to [...] IV site, amio to other piv and CODING SPECIALIST HOME HEALTH at bedside to help assess, IV removed. [...] staff, he stood and marched in place. [place] weak, wanting to sit back down. Remained [...] Health/Prescription Coverage: Primary Insurance: MEDICARE Secondary Insurance: [employer] [place] Prescription Coverage: yes Preferred Pharmacy: [facility] Other: none Primary Care Provider: Lovely Vicente MD [phone] Patient/Caregiver Goals of Treatment:live and get my breath back Potential Needs for Transition of Care: Rehab/SNF: [facility] Home Health: NA DME: TBD Dialysis: na Community Resources: available Transportation: yes Other: none Anticipated Barriers to Discharge/Special Considerations: none Plan: Likely SNF Rehab before home A member of the Care Management team will continue to monitor progress, follow for continuity of care and assist with transition of care planning. ERLIN Weiss Pager: [phone] Consult Note - Katerin Azul RN - [...] to d/c gtt and start CF. intermediate designer diabetes care: Medications - Outpatient treatment regimen recommendations pending based on the hospital course. Monitoring - continue BG tid ac & hs Diet - low fat/low carb diet Exercise - weight-bearing exercise 30 min/day, as tolerated Thank you for allowing us to provide care for your patient W/E coverage, Dr. Jeane Tatum, pager [phone] Katerin Azul APRN Endocrinology Diabetes Management Pager [phone] Plan of Care - Stephanie Godoy, RN [...] - 07/07/2017 6:27 PM EST [facility] Operative Note Patient Name: Gregory Hoang : [id number] MR#: [id number] Case Date: 07/07/2017 Surgeon: Surgeon(s) and Role: * Yuan Webber MD - Primary * Michael Drake PA - Physician Vegetable Washer * Linda Flores PA - Physician Vegetable Washer Preoperative diagnosis: 3VD Postoperative diagnosis: CAD, severe [...] Operative Note Patient Name: Gregory Hoang : [id number] MR#: [id number] Case Date: 07/07/2017 Surgeon: Surgeon(s) and Role: * Yuan Webber MD - Primary * Michael Drake PA - Physician Vegetable Washer * Linda Flores PA - Physician Vegetable Washer Preoperative diagnosis: 3VD Postoperative diagnosis: CAD, severe [...] (reference Cardiac: ACS (Acute Coronary Syndrome) (Adult) [facility]). 07/07/17621 Cardiac: ACS (Acute Coronary Syndrome) Problems Assessed (Acute Coronary Syndrome (ACS)) all Problems Present (Acute Coronary Syndrome (ACS)) none Med Student Progress Note - Katty Hahn - 07/07/2017 6:19 AM EST Inpatient Cardiology Progress Note Patient Name: Gregory oHang Date of Admission: 07/05/2017 ( Hospital Day [...] Medicine at [facility] Cardiology S1 (Pager [phone]) Plan of Care - Emelia Ibarra RN [...] with other involved physicians Yuan Webber MD [phone] Med Student Progress Note - Katty Hahn [...] or BiPAP - s/p lasix in the mobile lab technician, was net -1.5L - s/p [...] insulin drip - hold metformin - f/u [facility] ?? #Home Meds - continue levothyroxine 175mcg - CPAP at night ?? # Routine - DVT PPx: heparin drip - Diet: Healthy heart diet, NPO at midnight for CABG tomorrow - Code Status: FULL - Dispo: CVCC Katty Hahn, M3 [facility] Cardiology S1 (Pager [phone]) Plan of Care - Stephanie Godoy RN - 07/06/2017 5:00 AM EST Problem: Patient Care Overview Goal: Plan of Care Review 07/06/17 5106 Coping/Psychosocial Plan Of Care Reviewed With patient;family [...] in urinal without difficulty. Lasix given in mobile lab technician, 1.4 L out at this [...] Outcome: Ongoing (Interventions Implemented as Appropriate) 07/06/17 4446 Cardiac: ACS (Acute Coronary Syndrome) Problems Assessed [...] Zulma Dolan MD [facility] [place], [place] [address] (Wo rk) 05/28/2022 Laboratory Appointment Lab 05/28/2022 Office Visit Cardiology Zulma Dolan MD [facility] [place] [address] Liz Poole PA [facility] [place] [address] 06/10/2022 Office Visit Dermatology Laura Scherer MD [facility] [address] [place] [place], [place] [address] (Wo rk) Scheduled Orders Name [...] procedure are i n the results section. PERSONAL SECURITY SPECIALIST SCAN 07/15/2017 12:00 Res ults for this [...] 4:00 Results f or this [place] AM EST procedure are i n the [...] 5:15 Results f or this ([facility] AM EST procedure are i n the [...] 7:40 Results f or this ([facility] PM EST procedure are i n the [...] 2:10 Results f or this ([facility] PM EST procedure are i n the [...] AND SCREEN Routine 07/06/2017 12:00 ([facility] PM EST APTT STAT 07/06/2017 11:24 Results [...] 8:10 Results f or this ([facility] AM EST procedure are i n the [...] 2:20 Results f or this ([facility] AM EST procedure are i n the [...] 8:20 Results f or this ([facility] PM EST procedure are i n the [...] Timed 07/05/2017 4:55 Results f or this ([facility]) PM EST procedure are i n the [...] 2017 EXAMINATION: XR CHEST PA AND LATERAL ([email or web address]) CLINICAL HISTORY: CABG x 3 TECHNIQUE: PA [...] Teague APRN IMG DX ORDERABLES SCAN DOC: PERSONAL SECURITY SPECIALIST (07/15/2017 12:00 AM EST) Narrative 07/15/2017 12:00 [...] Glucose 186 65 - 199 [facility] mg/dL [facility] Comment: Supplemental ranges: <140 mg/dL before meals <180 mg/dL all other times of the day Specimen Anatomical Collection Method Collection Time Receive d Time (Source) Location / / Volume Laterality Blood specimen 07/14/2017 11:56 7 (specimen) AM EST 11:56 AM EST Yuan Webber MD POINT OF CARE TEST ORDERABLE S Performing Organization Address City/State/[place] [address] POCT Glucose (07/14/2017 7:52 AM EST) athologist Signature POC Glucose 126 65 - 199 [facility] mg/dL [facility] Comment: Supplemental ranges: <140 mg/dL before meals <180 mg/dL all other times of the day Specimen Anatomical Collection Method Collection Time Receive d Time (Source) Location / / Volume Laterality Blood specimen 07/14/2017 7:52 AM 017 7:52 (specimen) EST AM EST Yuan Webber MD POINT OF CARE TEST ORDERABLE S Performing Organization Address [facility]/[place] [address] (ABNORMAL) Prothrombin Time (07/14/2017 4:46 AM EST) athologist Signature PT 26.4 (H) 11.8 - 14.0 [place] [...] Wilson APRN HEMATOLOGY ORDERABLES Performing Organization Address City/[facility] [place] [address] Potassium (07/14/2017 4:46 AM EST) athologist Signature Potassium 4.3 3.5 - 5.0 [facility] mmol/L [facility] Comment: Please note: ??Patients [...] Address City/State/ZIP Code Phon e Number [address] POCT Glucose (07/14/2017 4:34 AM EST) athologist Signature POC Glucose 115 65 - 199 [place] mg/dL [facility] Comment: Supplemental ranges: <140 mg/dL before meals <180 mg/dL all other times of the day Specimen Anatomical Collection Method Collection Time Receive d Time (Source) Location / / Volume Laterality Blood specimen 07/14/2017 4:34 AM 017 4:34 (specimen) EST AM EST Yuan Webber MD POINT OF CARE TEST ORDERABLE S Performing Organization Address City/[facility]/ZIP Code Phon e Number [address] POCT Glucose (07/13/2017 11:33 PM EST) athologist Signature POC Glucose 132 65 - 199 [place] mg/dL [facility] Comment: Supplemental ranges: <140 mg/dL before meals <180 mg/dL all other times of the day Specimen Anatomical Collection Method Collection Time Receive d Time (Source) Location / / Volume Laterality Blood specimen 07/13/2017 11:33 7 (specimen) PM EST 11:33 PM EST Yuan Webber MD POINT OF CARE TEST ORDERABLE S Performing Organization Address City/[facility]/ZIP Code Phon [place] [address] POCT Glucose (07/13/2017 9:25 PM EST) athologist Signature POC Glucose 121 65 - 199 [place] mg/dL [facility] Comment: Supplemental ranges: <140 mg/dL before meals <180 mg/dL all other times of the day Specimen Anatomical Collection Method Collection Time Receive d Time (Source) Location / / Volume Laterality Blood specimen 07/13/2017 9:25 PM 017 9:25 (specimen) EST PM EST Yuan Webber MD POINT OF CARE TEST ORDERABLE S Performing Organization Address City/State/ZIP Code Phon e Number [address] POCT Glucose (07/13/2017 4:55 PM EST) athologist Signature POC Glucose 79 65 - 199 [facility] [place] mg/dL [facility] Comment: Supplemental ranges: <140 mg/dL before meals <180 mg/dL all other times of the day Specimen Anatomical Collection Method Collection Time Receive d Time (Source) Location / / Volume Laterality Blood specimen 07/13/2017 4:55 PM 017 4:55 (specimen) EST PM EST Yuan Webber MD POINT OF CARE TEST ORDERABLE S Performing Organization Address City/State/ZIP Code Phon e Number [address] POCT Glucose (07/13/2017 11:16 AM EST) athologist Signature POC Glucose 163 65 - 199 [facility] [place] mg/dL [facility] Comment: Supplemental ranges: <140 mg/dL before meals <180 mg/dL all other times of the day Specimen Anatomical Collection Method Collection Time Receive d Time (Source) Location / / Volume Laterality Blood specimen 07/13/2017 11:16 7 (specimen) AM EST 11:16 AM EST Yuan Webber MD POINT OF CARE TEST ORDERABLE S Performing Organization Address City/State/ZIP Code Phon e Number [place] [id number] POCT Glucose (07/13/2017 8:07 AM EST) athologist Signature POC Glucose 96 65 - 199 [facility] [place] mg/dL [facility] Comment: Supplemental ranges: <140 mg/dL before meals <180 mg/dL all other times of the day Specimen Anatomical Collection Method Collection Time Receive d Time (Source) Location / / Volume Laterality Blood specimen 07/13/2017 8:07 AM 017 8:07 (specimen) EST AM EST Yuan Webber MD POINT OF CARE TEST ORDERABLE S Performing Organization Address City/State/[place] [address] (ABNORMAL) Prothrombin Time (07/13/2017 [...] Organization Address City/State/[place] [address] (ABNORMAL) Basic Metabolic Panel (non-fasting) (07/13/2017 4:26 AM EST) athologist Signature Glucose Lvl 95 65 - 199 [facility] mg/dL [facility] [...] [facility] Estimated GFR 60 >=60 [facility] Comment: The reported eGFR should be multiplied b y 1.2 for patients. The MDRD is not an appropriate measure o f renal function for patients with body mass extremes or in patients with acute kidney failure. http://Gateway EDI/DHnkdep http://Gateway EDI/DHMCnkf Specimen Anatomical Collection Method Collection Time Receive d Time (Source) Location / / Volume Laterality Blood specimen 07/13/2017 4:26 AM 017 4:46 (specimen) EST AM EST Resulting Agency Comment Spec In Lab Makayla Wilson APRN CHEMISTRY ORDERABLES Performing Organization Address City/[facility]/ZIP Code Phon e Number [address] POCT Glucose (07/13/2017 3:52 AM EST) athologist Signature POC Glucose 93 65 - 199 [facility] mg/dL [facility] Comment: Supplemental ranges: <140 mg/dL before meals <180 mg/dL all other times of the day Specimen Anatomical Collection Method Collection Time Receive d Time (Source) Location / / Volume Laterality Blood specimen 07/13/2017 3:52 AM 017 3:52 (specimen) EST AM EST Yuan Webber MD POINT OF CARE TEST ORDERABLE S Performing Organization Address City/State/ZIP Code Phon e Number [address] POCT Glucose (07/13/2017 12:21 AM EST) athologist Signature POC Glucose 80 65 - 199 [facility] mg/dL [facility] Comment: Supplemental ranges: <140 mg/dL before meals <180 mg/dL all other times of the day Specimen Anatomical Collection Method Collection Time Receive d Time (Source) Location / / Volume Laterality Blood specimen 07/13/2017 12:21 7 (specimen) AM EST 12:21 AM EST Yuan Webber MD POINT OF CARE TEST ORDERABLE S Performing Organization Address City/State/ZIP Code Phon e Number [address] POCT Glucose (07/12/2017 8:22 PM EST) P athologist Signature POC Glucose 119 65 - 199 [place] mg/dL [facility] Comment: Supplemental ranges: <140 mg/dL before meals <180 mg/dL all other times of the day Specimen Anatomical Collection Method Collection Time Receive d Time (Source) Location / / Volume Laterality Blood specimen 07/12/2017 8:22 PM 017 8:22 (specimen) EST PM EST Yuan Webber MD POINT OF CARE TEST ORDERABLE S Performing Organization Address City/[facility]/ZIP Code Phon e Number [address] POCT Glucose (07/12/2017 4:02 PM EST) athologist Signature POC Glucose 114 65 - 199 [place] mg/dL [facility] Comment: Supplemental ranges: <140 mg/dL before meals <180 mg/dL all other times of the day Specimen Anatomical Collection Method Collection Time Receive d Time (Source) Location / / Volume Laterality Blood specimen 07/12/2017 4:02 PM 017 4:02 (specimen) EST PM EST Yuan Webber MD POINT OF CARE TEST ORDERABLE S Performing Organization Address City/State/ZIP Code Phon e Number [address] POCT Glucose (07/12/2017 11:28 AM EST) P athologist Signature POC Glucose 164 65 - 199 [facility] [place] mg/dL [facility] Comment: Supplemental ranges: <140 mg/dL before meals <180 mg/dL all other times of the day Specimen Anatomical Collection Method Collection Time Receive d Time (Source) Location / / Volume Laterality Blood specimen 07/12/2017 11:28 7 (specimen) AM EST 11:28 AM EST Yuan Webber MD POINT OF CARE TEST ORDERABLE S Performing Organization Address City/State/ZIP Code Phon e Number [address] POCT Glucose (07/12/2017 7:34 AM EST) athologist Signature POC Glucose 109 65 - 199 [facility] Comment: Supplemental ranges: <140 mg/dL before meals <180 mg/dL all other times of the day Specimen Anatomical Collection Method Collection Time Receive d Time (Source) Location / / Volume Laterality Blood specimen 07/12/2017 7:34 AM 017 7:34 (specimen) EST AM EST Yuan Webber MD POINT OF CARE TEST ORDERABLE S Performing Organization Address City/State/[place] [address] (ABNORMAL) Basic Metabolic Panel (non-fasting) (07/12/2017 4:11 AM EST) athologist Signature Glucose Lvl 92 65 - 199 [facility] Comment: Diabetes: [...] or in patients with acute kidney failure. http://Gateway EDI/DHnkdep http://[facility]way EDI/DHMCnkf Specimen Anatomical Collection Method Collection Time Receive d Time (Source) Location / / Volume Laterality Blood specimen 07/12/2017 4:11 AM 017 8:57 (specimen) EST AM EST Resulting Agency Comment Spec In Lab [facility]laVA [facility] STACIE CHEMISTRY ORDERABLES Performing Organization Address [facility] [place] [address] (ABNORMAL) Prothrombin Time (07/12/2017 [...] [place] STACIE HEMATOLOGY ORDERABLES Performing Organization Address City/[facility] Phon e Number [address] Potassium (07/12/2017 4:11 AM EST) P athologist Signature Potassium 3.8 3.5 - 5.0 [facility]/L [facility] Comment: Please note: ??Patients [...] Wilson APRN CHEMISTRY ORDERABLES Performing Organization Address City/[facility]/ZIP Code Phon e Number [address] POCT Glucose (07/12/2017 4:10 AM EST) athologist Signature POC Glucose 90 65 - 199 [facility] Comment: Supplemental ranges: <140 mg/dL before meals <180 mg/dL all other times of the day Specimen Anatomical Collection Method Collection Time Receive d Time (Source) Location / / Volume Laterality Blood specimen 07/12/2017 4:10 AM 017 4:10 (specimen) EST AM EST Yuan Webber MD POINT OF CARE TEST ORDERABLE S Performing Organization Address City/[facility]/ZIP Code Phon e Number [address] POCT Glucose (07/11/2017 11:57 PM EST) athologist Signature POC Glucose 98 65 - 199 [facility] Comment: Supplemental ranges: <140 mg/dL before meals <180 mg/dL all other times of the day Specimen Anatomical Collection Method Collection Time Receive d Time (Source) Location / / Volume Laterality Blood specimen 07/11/2017 11:57 7 (specimen) PM EST 11:57 PM EST Yuan Webber MD POINT OF CARE TEST ORDERABLE S Performing Organization Address City/[facility]/ZIP Code Phon e Number [address] POCT Glucose (07/11/2017 8:32 PM EST) P athologist Signature POC Glucose 146 65 - 199 [place] mg/dL [facility] Comment: Supplemental ranges: <140 mg/dL before meals <180 mg/dL all other times of the day Specimen Anatomical Collection Method Collection Time Receive d Time (Source) Location / / Volume Laterality Blood specimen 07/11/2017 8:32 PM 017 8:32 (specimen) EST PM EST Yuan Webber MD POINT OF CARE TEST ORDERABLE S Performing Organization Address City/State/ZIP Code Phon e Number [facility] [place] [address] XR Chest PA & [...] e xtubated, left chest tube removed, and Lihue-Suzi catheter removed since the study. Atelectasis at [...] e xtubated, left chest tube removed, and Lihue-Suzi catheter removed since the study. Atelectasis at [...] Glucose 223 (H) 65 - 199 [place] mg/dL [facility] Comment: Supplemental ranges: <140 mg/dL before meals <180 mg/dL all other times of the day Specimen Anatomical Collection Method Collection Time Receive d Time (Source) Location / / Volume Laterality Blood specimen 07/11/2017 4:05 PM 017 4:05 (specimen) EST PM EST Yuan Webber MD POINT OF CARE TEST ORDERABLE S Performing Organization Address City/State/[place] [address] POCT Glucose (07/11/2017 11:55 AM EST) athologist Signature POC Glucose 176 65 - 199 [place] mg/dL [facility] Comment: Supplemental ranges: <140 mg/dL before meals <180 mg/dL all other times of the day Specimen Anatomical Collection Method Collection Time Receive d Time (Source) Location / / Volume Laterality Blood specimen 07/11/2017 11:55 7 (specimen) AM EST 11:55 AM EST Yuan Webber MD POINT OF CARE TEST ORDERABLE S Performing Organization Address City/State/[place] [address] POCT Glucose (07/11/2017 7:53 AM EST) athologist Signature POC Glucose 189 65 - 199 [place] mg/dL [facility] Comment: Supplemental ranges: <140 mg/dL before meals <180 mg/dL all other times of the day Specimen Anatomical Collection Method Collection Time Receive d Time (Source) Location / / Volume Laterality Blood specimen 07/11/2017 7:53 AM 017 7:53 (specimen) EST AM EST Yuan Webber MD POINT OF CARE TEST ORDERABLE S Performing Organization Address City/[facility]/ZIP Code Phon e Number [address] POCT Glucose (07/11/2017 4:22 AM EST) athologist Signature POC Glucose 151 65 - 199 [place] mg/dL [facility] Comment: Supplemental ranges: <140 mg/dL before meals <180 mg/dL all other times of the day Specimen Anatomical Collection Method Collection Time Receive d Time (Source) Location / / Volume Laterality Blood specimen 07/11/2017 4:22 AM 017 4:22 (specimen) EST AM EST Yuan Webber MD POINT OF CARE TEST ORDERABLE S Performing Organization Address City/[facility] [place] [place] [address] Potassium (07/11/2017 2:20 AM EST) athologist Signature Potassium 4.5 3.5 - 5.0 [facility] mmol/L [facility] Comment: Please note: ??Patients [...] Webber MD CHEMISTRY ORDERABLES Performing Organization Address City/[facility]/ZIP Code Phon e Number [address] POCT Glucose (07/11/2017 12:17 AM EST) athologist Signature POC Glucose 162 65 - 199 [facility] mg/dL [facility] Comment: Supplemental ranges: <140 mg/dL before meals <180 mg/dL all other times of the day Specimen Anatomical Collection Method Collection Time Receive d Time (Source) Location / / Volume Laterality Blood specimen 07/11/2017 12:17 7 (specimen) AM EST 12:17 AM EST Yuan Webber MD POINT OF CARE TEST ORDERABLE S Performing Organization Address City/State/[place] [address] POCT Glucose (07/10/2017 8:47 PM EST) athologist Signature POC Glucose 191 65 - 199 [place] mg/dL [facility] Comment: Supplemental ranges: <140 mg/dL before meals <180 mg/dL all other times of the day Specimen Anatomical Collection Method Collection Time Receive d Time (Source) Location / / Volume Laterality Blood specimen 07/10/2017 8:47 PM 017 8:47 (specimen) EST PM EST Yuan Webber MD POINT OF CARE TEST ORDERABLE S Performing Organization Address City/State/[place] [address] POCT Glucose (07/10/2017 4:06 PM EST) athologist Signature POC Glucose 131 65 - 199 [place] mg/dL [facility] Comment: Supplemental ranges: <140 mg/dL before meals <180 mg/dL all other times of the day Specimen Anatomical Collection Method Collection Time Receive d Time (Source) Location / / Volume Laterality Blood specimen 07/10/2017 4:06 PM 017 4:06 (specimen) EST PM EST Yuan Webber MD POINT OF CARE TEST ORDERABLE S Performing Organization Address City/State/[place] [address] POCT Glucose (07/10/2017 3:08 PM EST) athologist Signature POC Glucose 151 65 - 199 [place] mg/dL [facility] Comment: Supplemental ranges: <140 mg/dL before meals <180 mg/dL all other times of the day Specimen Anatomical Collection Method Collection Time Receive d Time (Source) Location / / Volume Laterality Blood specimen 07/10/2017 3:08 PM 017 3:08 (specimen) EST PM EST Yuan Webber MD POINT OF CARE TEST ORDERABLE S Performing Organization Address City/State/ZIP Code Phon e Number [address] POCT Glucose (07/10/2017 2:25 PM EST) athologist Signature POC Glucose 146 65 - 199 [place] mg/dL [facility] Comment: Supplemental ranges: <140 mg/dL before meals <180 mg/dL all other times of the day Specimen Anatomical Collection Method Collection Time Receive d Time (Source) Location / / Volume Laterality Blood specimen 07/10/2017 2:25 PM 017 2:25 (specimen) EST PM EST Yuan Webber MD POINT OF CARE TEST ORDERABLE S Performing Organization Address City/State/[place] [address] POCT Glucose (07/10/2017 1:23 PM EST) athologist Signature POC Glucose 166 65 - 199 [place] mg/dL [facility] Comment: Supplemental ranges: <140 mg/dL before meals <180 mg/dL all other times of the day Specimen Anatomical Collection Method Collection Time Receive d Time (Source) Location / / Volume Laterality Blood specimen 07/10/2017 1:23 PM 017 1:23 (specimen) EST PM EST Yuan Webber MD POINT OF CARE TEST ORDERABLE S Performing Organization Address City/State/[place] [address] POCT Glucose (07/10/2017 11:52 AM EST) athologist Signature POC Glucose 157 65 - 199 [place] mg/dL [facility] Comment: Supplemental ranges: <140 mg/dL before meals <180 mg/dL all other times of the day Specimen Anatomical Collection Method Collection Time Receive d Time (Source) Location / / Volume Laterality Blood specimen 07/10/2017 11:52 7 (specimen) AM EST 11:52 AM EST Yuan Webber MD POINT OF CARE TEST ORDERABLE S Performing Organization Address City/[facility]/ZIP Code Phon e Number [address] POCT Glucose (07/10/2017 11:01 AM EST) P athologist Signature POC Glucose 158 65 - 199 [place] mg/dL [facility] Comment: Supplemental ranges: <140 mg/dL before meals <180 mg/dL all other times of the day Specimen Anatomical Collection Method Collection Time Receive d Time (Source) Location / / Volume Laterality Blood specimen 07/10/2017 11:01 7 (specimen) AM EST 11:01 AM EST Yuan Webber MD POINT OF CARE TEST ORDERABLE S Performing Organization Address City/[facility]/ZIP Code Phon e Number [address] POCT Glucose (07/10/2017 9:54 AM EST) P athologist Signature POC Glucose 160 65 - 199 [place] mg/dL [facility] Comment: Supplemental ranges: <140 mg/dL before meals <180 mg/dL all other times of the day Specimen Anatomical Collection Method Collection Time Receive d Time (Source) Location / / Volume Laterality Blood specimen 07/10/2017 9:54 AM 017 9:54 (specimen) EST AM EST Yuan Webber MD POINT OF CARE TEST ORDERABLE S Performing Organization Address City/State/ZIP Code Phon e Number [address] POCT Glucose (07/10/2017 8:58 AM EST) P athologist Signature POC Glucose 183 65 - 199 [facility] mg/dL [facility] Comment: Supplemental ranges: <140 mg/dL before meals <180 mg/dL all other times of the day Specimen Anatomical Collection Method Collection Time Receive d Time (Source) Location / / Volume Laterality Blood specimen 07/10/2017 8:58 AM 017 8:58 (specimen) EST AM EST Yuan Webber MD POINT OF CARE TEST ORDERABLE S Performing Organization Address City/State/ZIP Code Phon e Number [address] POCT Glucose (07/10/2017 8:01 AM EST) athologist Signature POC Glucose 173 65 - 199 [place] mg/dL [facility] Comment: Supplemental ranges: <140 mg/dL before meals <180 mg/dL all other times of the day Specimen Anatomical Collection Method Collection Time Receive d Time (Source) Location / / Volume Laterality Blood specimen 07/10/2017 8:01 AM 017 8:01 (specimen) EST AM EST Yuan Webber MD POINT OF CARE TEST ORDERABLE S Performing Organization Address City/State/ZIP Code Phon e Number [address] POCT Glucose (07/10/2017 7:05 AM EST) athologist Signature POC Glucose 166 65 - 199 [place] mg/dL [facility] Comment: Supplemental ranges: <140 mg/dL before meals <180 mg/dL all other times of the day Specimen Anatomical Collection Method Collection Time Receive d Time (Source) Location / / Volume Laterality Blood specimen 07/10/2017 7:05 AM 017 7:05 (specimen) EST AM EST Yuan Webber MD POINT OF CARE TEST ORDERABLE S Performing Organization Address City/State/[place] [address] POCT Glucose (07/10/2017 6:00 AM EST) athologist Signature POC Glucose 162 65 - 199 [place] RYAN mg/dL [facility]ORATORY Comment: Supplemental ranges: <140 mg/dL before meals <180 mg/dL all other times of the day Specimen Anatomical Collection Method Collection Time Receive d Time (Source) Location / / Volume Laterality Blood specimen 07/10/2017 6:00 AM 017 6:00 (specimen) EST AM EST Yuan Webber MD POINT OF CARE TEST ORDERABLE S Performing Organization Address City/State/ZIP Code Phon e Number [address] (ABNORMAL) Differential, Automated (07/10/2017 4:28 AM EST) [facility] Method Time Signature Neutrophils % 87.9 % [facility] LABORATORY Neutr Abs (ANC) 10.70 (H) 1.70 - [facility] 6.10 [facility] x10(3)/[facility] L LABORATORY Lymphocytes % 3.9 % [facility]OR[facility] Lymphocytes Abs 0.5 (L) 0.9 - 3.2 [facility] x10(3)/[facility] LABORATORY Monocytes % 7.0 % [facility] Monocyte Abs 0.8 0.3 - 0.9 [facility] x10(3)/[facility] LABORATORY Eosinophils % 0.3 % [facility] Eosinophils Abs 0.0 0.0 - 0.4 [facility] x10(3)/[facility] LABORATORY Basophils % 0.2 % [facility] Basophils Abs 0.0 0.0 - 0.1 [facility] x10(3)/[facility] LABORATORY Immature Gran % 0.70 % [...] Webber MD HEMATOLOGY ORDERABLES Performing Organization Address City/[facility]/[place] [address] (ABNORMAL) Hemogram (07/10/2017 4:28 AM EST) Analysis Performed At Patho logist Time Signature WBC 12.2 (H) 4.0 - 9.5 [facility] x10(3)/[facility] LABORATORY RBC 3.31 (L) 4.58 - [place] RYAN 5.54 [facility] x10(6)/[facility] LABORATORY Hemoglobin 9.8 (L) 13.7 - [facility] 16.[facility] gm/dL [facility] Hematocrit 30.0 (L) 40.5 - [facility] 48.5 % [facility] MCV 90.6 82.9 - [facility] 93.1 [facility] LABORATORY MCH 29.6 27.5 - [facility] 32.1 pg [facility] MCHC 32.7 32.0 - [facility] 35.7 gm/dL [facility] Platelets 135 (L) 145 - 357 [facility] x10(3)/[facility] LABORATORY RDWSD 50.8 (H) 36.0 - [facility] 45.0 [facility] LABORATORY RDWCV 15.4 (H) 11.4 - [facility] 13.8 % [facility] MPV 10.0 7.6 - 12.9 [facility] LABORATORY nRBC % Auto 0.0 % [facility] LABORATORY nRBC Abs Auto 0.000 0.000 - [facility] 0.000 [facility] x10(3)/[facility] LABORATORY Specimen Anatomical Collection Method Collection Time Receive d Time (Source) Location / / Volume Laterality Blood specimen 07/10/2017 4:28 AM 017 4:36 (specimen) EST AM EST Resulting Agency Comment Spec In Lab Yuan Webber MD HEMATOLOGY ORDERABLES Performing Organization Address City/State/[place] [address] (ABNORMAL) Basic Metabolic Panel (non-fasting) (07/10/2017 4:28 AM EST) P athologist Signature Glucose Lvl 178 65 - 199 [facility] mg/dL [facility]ORATORY [...] [facility] Estimated GFR 60 >=60 [facility] LABORATORY Comment: The reported eGFR should be multiplied b y 1.2 for patients. The MDRD is not an appropriate measure o f renal function for patients with body mass extremes or in patients with acute kidney failure. http://Gateway EDI/DHnkdep http://Gateway EDI/DHMCnkf Specimen Anatomical Collection Method Collection Time Receive d Time (Source) Location / / Volume Laterality Blood specimen 07/10/2017 4:28 AM 017 4:36 (specimen) EST AM EST Resulting Agency Comment Spec In Lab Yuan Webber MD CHEMISTRY ORDERABLES Performing Organization Address City/State/[place] [address] POCT Glucose (07/10/2017 4:26 AM EST) P athologist Signature POC Glucose 176 65 - 199 [facility] mg/dL [facility] Comment: Supplemental ranges: <140 mg/dL before meals <180 mg/dL all other times of the day Specimen Anatomical Collection Method Collection Time Receive d Time (Source) Location / / Volume Laterality Blood specimen 07/10/2017 4:26 AM 017 4:26 (specimen) EST AM EST Yuan Webber MD POINT OF CARE TEST ORDERABLE S Performing Organization Address City/[facility]/ZIP Code Phon e Number [address] (ABNORMAL) POCT Glucose (07/10/2017 3:06 AM EST) P athologist Signature POC Glucose 204 (H) 65 - 199 [place] mg/dL [facility] Comment: Supplemental ranges: <140 mg/dL before meals <180 mg/dL all other times of the day Specimen Anatomical Collection Method Collection Time Receive d Time (Source) Location / / Volume Laterality Blood specimen 07/10/2017 3:06 AM 017 3:06 (specimen) EST AM EST Yuan Webber MD POINT OF CARE TEST ORDERABLE S Performing Organization Address City/[facility]/[place] [address] (ABNORMAL) POCT Glucose (07/10/2017 2:10 AM EST) P athologist Signature POC Glucose 203 (H) 65 - 199 [facility] Comment: Supplemental ranges: <140 mg/dL before meals <180 mg/dL all other times of the day Specimen Anatomical Collection Method Collection Time Receive d Time (Source) Location / / Volume Laterality Blood specimen 07/10/2017 2:10 AM 017 2:10 (specimen) EST AM EST Yuan Webber MD POINT OF CARE TEST ORDERABLE S Performing Organization Address City/State/ZIP Code Phon e Number [address] POCT Glucose (07/10/2017 1:09 AM EST) P athologist Signature POC Glucose 196 65 - 199 [facility] RYAN mg/dL [facility] Comment: Supplemental ranges: <140 mg/dL before meals <180 mg/dL all other times of the day Specimen Anatomical Collection Method Collection Time Receive d Time (Source) Location / / Volume Laterality Blood specimen 07/10/2017 1:09 AM 2 017 1:09 (specimen) EST AM EST Yuan Webber MD POINT OF CARE TEST ORDERABLE S Performing Organization Address City/State/ZIP Code Phon e Number [address] POCT Glucose (07/10/2017 12:10 AM EST) P athologist Signature POC Glucose 173 65 - 199 [place] ZHAORYAN mg/dL [facility] Comment: Supplemental ranges: <140 mg/dL before meals <180 mg/dL all other times of the day Specimen Anatomical Collection Method Collection Time Receive d Time (Source) Location / / Volume Laterality Blood specimen 07/10/2017 12:10 7 (specimen) AM EST 12:10 AM EST Yuan Webber MD POINT OF CARE TEST ORDERABLE S Performing Organization Address City/State/ZIP Code Phon e Number [address] POCT Glucose (07/09/2017 11:01 PM EST) athologist Signature POC Glucose 140 65 - 199 [place] ZHAORYAN mg/dL [facility] Comment: Supplemental ranges: <140 mg/dL before meals <180 mg/dL all other times of the day Specimen Anatomical Collection Method Collection Time Receive d Time (Source) Location / / Volume Laterality Blood specimen 07/09/2017 11:01 7 (specimen) PM EST 11:01 PM EST Yuan Webber MD POINT OF CARE TEST ORDERABLE S Performing Organization Address City/State/ZIP Code Phon e Number [address] POCT Glucose (07/09/2017 10:05 PM EST) P athologist Signature POC Glucose 144 65 - 199 [facility] RYAN mg/dL [facility] Comment: Supplemental ranges: <140 mg/dL before meals <180 mg/dL all other times of the day Specimen Anatomical Collection Method Collection Time Receive d Time (Source) Location / / Volume Laterality Blood specimen 07/09/2017 10:05 7 (specimen) PM EST 10:05 PM EST Yuan Webber MD POINT OF CARE TEST ORDERABLE S Performing Organization Address City/State/ZIP Code Phon e Number [address] POCT Glucose (07/09/2017 9:31 PM EST) athologist Signature POC Glucose 121 65 - 199 [place] ZHAORYAN mg/dL [facility] Comment: Supplemental ranges: <140 mg/dL before meals <180 mg/dL all other times of the day Specimen Anatomical Collection Method Collection Time Receive d Time (Source) Location / / Volume Laterality Blood specimen 07/09/2017 9:31 PM 017 9:31 (specimen) EST PM EST Yuan Webber MD POINT OF CARE TEST ORDERABLE S Performing Organization Address City/[facility]/ZIP Code Phon e Number [address] POCT Glucose (07/09/2017 9:03 PM EST) athologist Signature POC Glucose 98 65 - 199 [place] ZHAORYAN mg/dL [facility] Comment: Supplemental ranges: <140 mg/dL before meals <180 mg/dL all other times of the day Specimen Anatomical Collection Method Collection Time Receive d Time (Source) Location / / Volume Laterality Blood specimen 07/09/2017 9:03 PM 017 9:03 (specimen) EST PM EST Yuan Webber MD POINT OF CARE TEST ORDERABLE S Performing Organization Address City/[facility]/ZIP Code Phon e Number [address] POCT Glucose (07/09/2017 8:09 PM EST) athologist Signature POC Glucose 117 65 - 199 [place] RYAN mg/dL [facility] Comment: Supplemental ranges: <140 mg/dL before meals <180 mg/dL all other times of the day Specimen Anatomical Collection Method Collection Time Receive d Time (Source) Location / / Volume Laterality Blood specimen 07/09/2017 8:09 PM 017 8:09 (specimen) EST PM EST Yuan Webber MD POINT OF CARE TEST ORDERABLE S Performing Organization Address City/State/ZIP Code Phon e Number [address] POCT Glucose (07/09/2017 5:40 PM EST) athologist Signature POC Glucose 155 65 - 199 [place] ZHAORYAN mg/dL [facility] Comment: Supplemental ranges: <140 mg/dL before meals <180 mg/dL all other times of the day Specimen Anatomical Collection Method Collection Time Receive d Time (Source) Location / / Volume Laterality Blood specimen 07/09/2017 5:40 PM 017 5:40 (specimen) EST PM EST Yuan Webber MD POINT OF CARE TEST ORDERABLE S Performing Organization Address City/State/ZIP Code Phon e Number [address] POCT Glucose (07/09/2017 4:24 PM EST) athologist Signature POC Glucose 164 65 - 199 [place] RYAN mg/dL [facility] Comment: Supplemental ranges: <140 mg/dL before meals <180 mg/dL all other times of the day Specimen Anatomical Collection Method Collection Time Receive d Time (Source) Location / / Volume Laterality Blood specimen 07/09/2017 4:24 PM 017 4:24 (specimen) EST PM EST Yuan Webber MD POINT OF CARE TEST ORDERABLE S Performing Organization Address City/State/ZIP Code Phon e Number [address] POCT Glucose (07/09/2017 3:19 PM EST) athologist Signature POC Glucose 166 65 - 199 [place] RYAN mg/dL [facility] Comment: Supplemental ranges: <140 mg/dL before meals <180 mg/dL all other times of the day Specimen Anatomical Collection Method Collection Time Receive d Time (Source) Location / / Volume Laterality Blood specimen 07/09/2017 3:19 PM 017 3:19 (specimen) EST PM EST Yuan Webber MD POINT OF CARE TEST ORDERABLE S Performing Organization Address City/State/[place] [address] POCT Glucose (07/09/2017 2:26 PM EST) athologist Signature POC Glucose 179 65 - 199 [place] ZHAORYAN mg/dL [facility] Comment: Supplemental ranges: <140 mg/dL before meals <180 mg/dL all other times of the day Specimen Anatomical Collection Method Collection Time Receive d Time (Source) Location / / Volume Laterality Blood specimen 07/09/2017 2:26 PM 017 2:26 (specimen) EST PM EST Yuan Webber MD POINT OF CARE TEST ORDERABLE S Performing Organization Address City/[facility]/[place] [address] (ABNORMAL) POCT Glucose (07/09/2017 1:29 PM EST) athologist Signature POC Glucose 210 (H) 65 - 199 [place] RYAN mg/dL [facility] Comment: Supplemental ranges: <140 mg/dL before meals <180 mg/dL all other times of the day Specimen Anatomical Collection Method Collection Time Receive d Time (Source) Location / / Volume Laterality Blood specimen 07/09/2017 1:29 PM 017 1:29 (specimen) EST PM EST Yuan Webber MD POINT OF CARE TEST ORDERABLE S Performing Organization Address City/[facility]/[place] [address] POCT Glucose (07/09/2017 12:20 PM EST) athologist Signature POC Glucose 172 65 - 199 [place] ZHAORYAN mg/dL [facility] Comment: Supplemental ranges: <140 mg/dL before meals <180 mg/dL all other times of the day Specimen Anatomical Collection Method Collection Time Receive d Time (Source) Location / / Volume Laterality Blood specimen 07/09/2017 12:20 7 (specimen) PM EST 12:20 PM EST Yuan Webber MD POINT OF CARE TEST ORDERABLE S Performing Organization Address City/State/ZIP Code Phon e Number [address] POCT Glucose (07/09/2017 11:24 AM EST) P athologist Signature POC Glucose 156 65 - 199 [place] ZHAORYAN mg/dL [facility] Comment: Supplemental ranges: <140 mg/dL before meals <180 mg/dL all other times of the day Specimen Anatomical Collection Method Collection Time Receive d Time (Source) Location / / Volume Laterality Blood specimen 07/09/2017 11:24 7 (specimen) AM EST 11:24 AM EST Yuan Webber MD POINT OF CARE TEST ORDERABLE S Performing Organization Address City/State/ZIP Code Phon e Number [address] POCT Glucose (07/09/2017 11:11 AM EST) athologist Signature POC Glucose 172 65 - 199 [place] mg/dL [facility] Comment: Supplemental ranges: <140 mg/dL before meals <180 mg/dL all other times of the day Specimen Anatomical Collection Method Collection Time Receive d Time (Source) Location / / Volume Laterality Blood specimen 07/09/2017 11:11 7 (specimen) AM EST 11:11 AM EST Yuan Webber MD POINT OF CARE TEST ORDERABLE S Performing Organization Address City/State/ZIP Code Phon e Number [place], [place] [address] [place] [address] POCT Glucose (07/09/2017 10:08 AM EST) P athologist Signature POC Glucose 176 65 - 199 [place] ZHAORYAN mg/dL [facility] Comment: Supplemental ranges: <140 mg/dL before meals <180 mg/dL all other times of the day Specimen Anatomical Collection Method Collection Time Receive d Time (Source) Location / / Volume Laterality Blood specimen 07/09/2017 10:08 7 (specimen) AM EST 10:08 AM EST Yuan Webber MD POINT OF CARE TEST ORDERABLE S Performing Organization Address City/State/ZIP [place] [address] POCT Glucose (07/09/2017 8:02 AM EST) P athologist Signature POC Glucose 178 65 - 199 [facility] mg/dL [facility] Comment: Supplemental ranges: <140 mg/dL before meals <180 mg/dL all other times of the day Specimen Anatomical Collection Method Collection Time Receive d Time (Source) Location / / Volume Laterality Blood specimen 07/09/2017 8:02 AM 017 8:02 (specimen) EST AM EST Yuan Webber MD POINT OF CARE TEST ORDERABLE S Performing Organization Address City/State/[place] [address] (ABNORMAL) BLOOD GAS 2 ARTERIAL (07/09/2017 5:37 AM EST) Analysis Performed At Patho logist Time Signature pH Art 7.36 7.35 - [facility] 7.45 [facility]ORY pCO2 Art 38 35 - 45 [facility] LABORATORY pO2 Art 79 (L) 85 - 104 [facility] LABORATORY HCO3 Art 20.9 20.0 - [facility] 26.0 [facility] mmol/L [facility] LABORATORY BE Art -4.6 (L) -3.0 - 3.0 [facility] mmol/L [facility] Hgb Blood Gas 10.5 (L) 13.7 - [facility] 16.5 gm/dL [facility] O2HB Art 93.8 (L) 94.0 - [facility] 97.0 % [facility] COHB Art 0.3 % [facility] [...] [facility] LABORATORY FIO2 Art 40 % [facility] LABORATORY PF Ratio Art 198 [facility] LABORATORY Specimen Anatomical Collection Method Collection Time Receive d Time (Source) Location / / Volume Laterality Blood specimen 07/09/2017 5:37 AM 017 5:37 (specimen) EST AM EST Yuan Webber MD CHEMISTRY ORDERABLES Performing Organization Address City/State/ZIP Code Phon e Number [address] POCT Glucose (07/09/2017 3:27 AM EST) athologist Signature POC Glucose 192 65 - 199 [facility] mg/dL [facility] Comment: Supplemental ranges: <140 mg/dL before meals <180 mg/dL all other times of the day Specimen Anatomical Collection Method Collection Time Receive d Time (Source) Location / / Volume Laterality Blood specimen 07/09/2017 3:27 AM 017 3:27 (specimen) EST AM EST Yuan Webber MD POINT OF CARE TEST ORDERABLE S Performing Organization Address City/[facility]/[place] [address] (ABNORMAL) Basic Metabolic Panel (non-fasting) (07/09/2017 2:30 AM EST) P athologist Signature Glucose Lvl 179 65 - 199 [facility] mg/dL [facility]ORY [...] or in patients with acute kidney failure. http://[facility] EDI/DHnkdep http://[facility] EDI/DHMCnkf Specimen Anatomical Collection Method Collection Time Receive d Time (Source) Location / / Volume Laterality Blood specimen Venous Draw / 07/09/2017 2:30 AM 2016 2:42 (specimen) Unknown EST AM EST Resulting Agency Comment Spec In Lab Yuan Webber MD CHEMISTRY ORDERABLES Performing Organization Address City/State/[place] [address] (ABNORMAL) Potassium (07/09/2017 2:30 AM EST) P athologist Signature Potassium 5.1 (H) 3.5 - 5.0 [facility] mmol/L [facility] Comment: Please note: ??Patients [...] City/State/[place] [address] (ABNORMAL) Hemogram (07/09/2017 2:30 AM EST) Analysis Performed At Patho logist Time Signature WBC 12.5 (H) 4.0 - 9.5 [facility](3[facility] LABORATORY RBC 3.38 (L) 4.58 - [facility] 5.54 [facility] x10(6)/[facility] LABORATORY Hemoglobin 10.1 (L) 13.7 - [facility] 16.5 gm/dL [facility] Hematocrit 30.3 (L) 40.5 - [facility] 48.5 % [facility] MCV 89.6 82.9 - [facility] 93.1 [facility] LABORATORY MCH 29.9 27.5 - [place] RYAN 32.1 pg [facility] MCHC 33.3 32.0 - [facility] 35.7 gm/dL [facility] Platelets 127 (L) 145 - 357 [facility] x[facility](3[facility] LABORATORY RDWSD 49.3 (H) 36.0 - [place] RYAN 45.0 [facility] LABORATORY RDWCV 15.2 (H) 11.4 - [facility] RYAN 13.8 % [facility]AT[facility] MPV 9.9 7.6 - 12.9 [facility] LABORATORY nRBC % Auto 0.0 % [facility] LABORATORY nRBC Abs Auto 0.000 0.000 - [place] RYAN 0.000 [facility] x10(3)/[facility] LABORATORY Specimen Anatomical Collection Method Collection Time Receive d Time (Source) Location / / Volume Laterality Blood specimen 07/09/2017 2:30 AM 017 2:41 (specimen) EST AM EST Resulting Agency Comment Spec In Lab Yuan Webber MD HEMATOLOGY ORDERABLES Performing Organization Address City/[facility]/[place] [address] POCT Glucose (07/09/2017 2:10 AM EST) P athologist Signature POC Glucose 169 65 - 199 [place] RYAN mg/dL [facility] Comment: Supplemental ranges: <140 mg/dL before meals <180 mg/dL all other times of the day Specimen Anatomical Collection Method Collection Time Receive d Time (Source) Location / / Volume Laterality Blood specimen 07/09/2017 2:10 AM 017 2:10 (specimen) EST AM EST Yuan Webber MD POINT OF CARE TEST ORDERABLE S Performing Organization Address City/[facility]/[place] [address] POCT Glucose (07/09/2017 1:01 AM EST) P athologist Signature POC Glucose 173 65 - 199 [place] ZHAORYAN mg/dL [facility] Comment: Supplemental ranges: <140 mg/dL before meals <180 mg/dL all other times of the day Specimen Anatomical Collection Method Collection Time Receive d Time (Source) Location / / Volume Laterality Blood specimen 07/09/2017 1:01 AM 017 1:01 (specimen) EST AM EST Yuan Webber MD POINT OF CARE TEST ORDERABLE S Performing Organization Address City/[facility]/[place] [address] Blood culture (07/09/2017 12:40 AM EST) Patholo gist Method Time Signature Blood Culture No growth [place] [facility] at 5 days. [facility] Specimen Anatomical Collection Method Collection Time Receive d Time (Source) Location / / Volume Laterality Blood specimen STRUCTURE OF RIGHT 07/09/2017 12:40 3:58 (specimen) UPPER LIMB / AM EST AM EST Unknown Resulting Agency Comment Spec In Lab Yuan Webber MD MICROBIOLOGY - BLOOD ORDERAB LES Performing Organization Address City/State/[place] [address] Blood culture (07/09/2017 12:30 AM EST) Patholo gist Method Time Signature Blood Culture No growth KATALINA DAVIS at 5 days. [facility] Specimen Anatomical Collection Method Collection Time Receive d Time (Source) Location / / Volume Laterality Blood specimen STRUCTURE OF LEFT 07/09/2017 12:30 1211/2016 3:59 (specimen) UPPER LIMB / AM EST AM EST Unknown Resulting Agency Comment Spec In Lab Yuan Webber MD MICROBIOLOGY - BLOOD ORDERAB LES Performing Organization Address City/[facility]/[place] [address] (ABNORMAL) Urinalysis Microscopic Exam (07/09/2017 12:05 AM EST) Analysis Performed At Patho logist Time Signature RBC UA 32 (H) 0 - 3 /HPF [facility]ORY WBC UA 5 (H) 0 - 3 /HPF [facility] Squam Epith UA <1 <=4 /HPF [facility] Hyaline Cast 17 (H) 0 - 2 /LPF [facility] LABORATORY Gran Cast UA 1 (H) <=0 /LPF [facility] Uric Ac Bianca Rare (A) None /HPF [facility] Specimen (Source) Anatomical Collection Method Collection Time Re ceived Time Location / / Volume Laterality Urine specimen 07/09/2017 12:05 7 obtained via AM EST 12:39 AM EST indwelling urinary catheter (specimen) Resulting Agency Comment Spec In Lab Yuna Webber MD URINE ORDERABLES Performing Organization Address City/State/[place] [address] (ABNORMAL) Urinalysis with reflex Culture (07/09/2017 12:05 AM EST) [facility] gist Method Time Signature Glucose UA Negative Negative [facility] mg/dL [facility] Protein UA 30 (A) Negative [facility]dL [facility] Bilirubin UA Negative Negative [facility] Comment: Clinical correlation required [...] [facility] Nitrite UA Negative Negative [facility] Leukocytes UA Negative Negative [facility]ORY Appearance UA Hazy (A) Clear [facility] Spec [place] UA 1.025 1.002 - 1.030 [facility] Color UA Yellow Yellow [facility] Culture Reflexed No [facility] Specimen (Source) Anatomical Collection Method Collection Time Re ceived Time Location / / Volume Laterality Urine specimen 07/09/2017 12:05 7 obtained via AM EST 12:39 AM EST indwelling urinary catheter (specimen) Resulting Agency Comment Spec In Lab Yuan Webber MD URINE ORDERABLES Performing Organization Address City/[facility]/[place] [address] POCT Glucose (07/08/2017 11:01 PM EST) P athologist Signature POC Glucose 191 65 - 199 [facility] mg/dL [facility] Comment: Supplemental ranges: <140 mg/dL before meals <180 mg/dL all other times of the day Specimen Anatomical Collection Method Collection Time Receive d Time (Source) Location / / Volume Laterality Blood specimen 07/08/2017 11:01 7 (specimen) PM EST 11:01 PM EST Yuan Webber MD POINT OF CARE TEST ORDERABLE S Performing Organization Address City/State/ZIP Code [place] [address] POCT Glucose (07/08/2017 10:04 PM EST) athologist Signature POC Glucose 198 65 - 199 [facility] mg/dL [facility] Comment: Supplemental ranges: <140 mg/dL before meals <180 mg/dL all other times of the day Specimen Anatomical Collection Method Collection Time Receive d Time (Source) Location / / Volume Laterality Blood specimen 07/08/2017 10:04 7 (specimen) PM EST 10:04 PM EST Yuan Webber MD POINT OF CARE TEST ORDERABLE S Performing Organization Address City/State/[place] [address] Prepare Albumin 5% in [...] Organization Address City/State/[place] [address] POCT Glucose (07/08/2017 8:28 PM EST) athologist Signature POC Glucose 195 65 - 199 [facility] mg/dL [facility] Comment: Supplemental ranges: <140 mg/dL before meals <180 mg/dL all other times of the day Specimen Anatomical Collection Method Collection Time Receive d Time (Source) Location / / Volume Laterality Blood specimen 07/08/2017 8:28 PM 017 8:28 (specimen) EST PM EST Yuan Webber MD POINT OF CARE TEST ORDERABLE S Performing Organization Address City/State/[place] [address] (ABNORMAL) POCT Glucose (07/08/2017 7:13 PM EST) P athologist Signature POC Glucose 220 (H) 65 - 199 [facility] mg/dL [facility] Comment: Supplemental ranges: <140 mg/dL before meals <180 mg/dL all other times of the day Specimen Anatomical Collection Method Collection Time Receive d Time (Source) Location / / Volume Laterality Blood specimen 07/08/2017 7:13 PM 017 7:13 (specimen) EST PM EST Yuan Webber MD POINT OF CARE TEST ORDERABLE S Performing Organization Address City/State/ZIP Code Phon e Number [address] POCT Glucose (07/08/2017 5:04 PM EST) athologist Signature POC Glucose 147 65 - 199 [facility] mg/dL [facility] Comment: Supplemental ranges: <140 mg/dL before meals <180 mg/dL all other times of the day Specimen Anatomical Collection Method Collection Time Receive d Time (Source) Location / / Volume Laterality Blood specimen 07/08/2017 5:04 PM 017 5:04 (specimen) EST PM EST Yuan Webber MD POINT OF CARE TEST ORDERABLE S Performing Organization Address City/State/[place] [address] (ABNORMAL) BLOOD GAS 2 ARTERIAL (07/08/2017 4:13 PM EST) Analysis Performed At Patho logist Time Signature pH Art 7.38 7.35 - [facility] 7.45 [facility] pCO2 Art 36 35 - 45 [facility]ORY pO2 Art 91 85 - 104 [facility]ORY HCO3 Art 20.9 20.0 - [facility] 26.0 [facility] mmol/L [facility] BE Art -4.2 (L) -3.0 - 3.0 [facility] mmol/L [facility] Hgb Blood Gas 11.7 (L) 13.7 - [facility] 16.5 gm/dL [facility] O2HB Art 95.1 94.0 - [facility] 97.0 % [facility] COHB Art 0.6 % [facility] [...] [facility] FIO2 Art 40 % [facility] PF Ratio Art 228 [facility] Specimen Anatomical Collection Method Collection Time Receive d Time (Source) Location / / Volume Laterality Blood specimen 07/08/2017 4:13 PM 017 4:13 (specimen) EST PM EST Yuan Webber MD CHEMISTRY ORDERABLES Performing Organization Address City/State/[place] [address] POCT Glucose (07/08/2017 4:01 PM EST) P athologist Signature POC Glucose 148 65 - 199 [facility] mg/dL [facility] Comment: Supplemental ranges: <140 mg/dL before meals <180 mg/dL all other times of the day Specimen Anatomical Collection Method Collection Time Receive d Time (Source) Location / / Volume Laterality Blood specimen 07/08/2017 4:01 PM 12/14/2 017 4:01 (specimen) EST PM EST Yuan Webber MD POINT OF CARE TEST ORDERABLE S Performing Organization Address City/State/ZIP Code Phon e Number [address] POCT Glucose (07/08/2017 3:21 PM EST) athologist Signature POC Glucose 118 65 - 199 [place] ZHAORYAN mg/dL [facility] Comment: Supplemental ranges: <140 mg/dL before meals <180 mg/dL all other times of the day Specimen Anatomical Collection Method Collection Time Receive d Time (Source) Location / / Volume Laterality Blood specimen 07/08/2017 3:21 PM 017 3:21 (specimen) EST PM EST Yuan Webber MD POINT OF CARE TEST ORDERABLE S Performing Organization Address City/[facility]/ZIP Code Phon e Number [address] POCT Glucose (07/08/2017 2:01 PM EST) athologist Signature POC Glucose 129 65 - 199 [place] ZHAORYAN mg/dL [facility] Comment: Supplemental ranges: <140 mg/dL before meals <180 mg/dL all other times of the day Specimen Anatomical Collection Method Collection Time Receive d Time (Source) Location / / Volume Laterality Blood specimen 07/08/2017 2:01 PM 017 2:01 (specimen) EST PM EST Yuan Webber MD POINT OF CARE TEST ORDERABLE S Performing Organization Address City/State/[place] [address] POCT Glucose (07/08/2017 11:53 AM EST) athologist Signature POC Glucose 156 65 - 199 [place] RYAN mg/dL [facility] Comment: Supplemental ranges: <140 mg/dL before meals <180 mg/dL all other times of the day Specimen Anatomical Collection Method Collection Time Receive d Time (Source) Location / / Volume Laterality Blood specimen 07/08/2017 11:53 7 (specimen) AM EST 11:53 AM EST Yuan Webber MD POINT OF CARE TEST ORDERABLE S Performing Organization Address City/State/[place] [address] POCT Glucose (07/08/2017 11:04 AM EST) P athologist Signature POC Glucose 181 65 - 199 [facility]dL [facility] Comment: Supplemental ranges: <140 mg/dL before meals <180 mg/dL all other times of the day Specimen Anatomical Collection Method Collection Time Receive d Time (Source) Location / / Volume Laterality Blood specimen 07/08/2017 11:04 7 (specimen) AM EST 11:04 AM EST Yuan Webber MD POINT OF CARE TEST ORDERABLE S Performing Organization Address City/[facility]/[place] [address] (ABNORMAL) POCT Glucose (07/08/2017 9:24 AM EST) athologist Signature POC Glucose 203 (H) 65 - 199 [facility] mg/dL [facility] Comment: Supplemental ranges: <140 mg/dL before meals <180 mg/dL all other times of the day Specimen Anatomical Collection Method Collection Time Receive d Time (Source) Location / / Volume Laterality Blood specimen 07/08/2017 9:24 AM 017 9:24 (specimen) EST AM EST Yuan Webber MD POINT OF CARE TEST ORDERABLE S Performing Organization Address City/[facility]/[place] [address] APTT (07/08/2017 8:40 AM [...] Organization Address City/State/[place] [address] (ABNORMAL) Prothrombin Time (07/08/2017 [...] Webber MD HEMATOLOGY ORDERABLES Performing Organization Address City/[facility]/[place] [address] (ABNORMAL) POCT Glucose (07/08/2017 7:38 AM EST) P athologist Signature POC Glucose 232 (H) 65 - 199 [facility] mg/dL [facility] Comment: Supplemental ranges: <140 mg/dL before meals <180 mg/dL all other times of the day Specimen Anatomical Collection Method Collection Time Receive d Time (Source) Location / / Volume Laterality Blood specimen 07/08/2017 7:38 AM 017 7:38 (specimen) EST AM EST Yuan Webber MD POINT OF CARE TEST ORDERABLE S Performing Organization Address City/[facility]/[place] [address] (ABNORMAL) POCT Glucose (07/08/2017 7:07 AM EST) athologist Signature POC Glucose 234 (H) 65 - 199 [facility] mg/dL [facility] Comment: Supplemental ranges: <140 mg/dL before meals <180 mg/dL all other times of the day Specimen Anatomical Collection Method Collection Time Receive d Time (Source) Location / / Volume Laterality Blood specimen 07/08/2017 7:07 AM 017 7:07 (specimen) EST AM EST Yuan Webber MD POINT OF CARE TEST ORDERABLE S Performing Organization Address City/State/[place] [address] (ABNORMAL) POCT Glucose (07/08/2017 6:04 AM EST) athologist Signature POC Glucose 225 (H) 65 - 199 [facility]dL [facility] Comment: Supplemental ranges: <140 mg/dL before meals <180 mg/dL all other times of the day Specimen Anatomical Collection Method Collection Time Receive d Time (Source) Location / / Volume Laterality Blood specimen 07/08/2017 6:04 AM 017 6:04 (specimen) EST AM EST Yuan Webber MD POINT OF CARE TEST ORDERABLE S Performing Organization Address City/[facility]/[place] [address] (ABNORMAL) POCT Glucose (07/08/2017 5:31 AM EST) athologist Signature POC Glucose 216 (H) 65 - 199 [facility] mg/dL [facility] Comment: Supplemental ranges: <140 mg/dL before meals <180 mg/dL all other times of the day Specimen Anatomical Collection Method Collection Time Receive d Time (Source) Location / / Volume Laterality Blood specimen 07/08/2017 5:31 AM 017 5:31 (specimen) EST AM EST Yuan Webber MD POINT OF CARE TEST ORDERABLE S Performing Organization Address City/State/[place] [address] (ABNORMAL) POCT Glucose (07/08/2017 4:52 AM EST) P athologist Signature POC Glucose 257 (H) 65 - 199 [facility] mg/dL [facility] Comment: Supplemental ranges: <140 mg/dL before meals <180 mg/dL all other times of the day Specimen Anatomical Collection Method Collection Time Receive d Time (Source) Location / / Volume Laterality Blood specimen 07/08/2017 4:52 AM 017 4:52 (specimen) EST AM EST Daphne Shahid MD POINT OF CARE TEST ORDERABLE S Performing Organization Address City/State/[place] [address] (ABNORMAL) BLOOD GAS 2 ARTERIAL (07/08/2017 4:04 AM EST) Analysis Performed At Patho logist Time Signature pH Art 7.30 (L) 7.35 - [facility] 7.45 [facility] pCO2 Art 41 35 - 45 [facility] LAB[facility]ATORY pO2 Art 83 (L) 85 - 104 [facility] LABORATORY HCO3 Art 19.6 (L) 20.0 - [facility] 26.0 [facility] mmol/[facility] BE Art -6.8 (L) -3.0 - 3.0 [facility] mmol/L [facility] Hgb Blood Gas 12.2 (L) 13.7 - [facility] 16.5 gm/dL [facility] O2HB Art 93.5 (L) 94.0 - [facility] 97.0 % [facility] COHB Art 0.4 % [facility] [...] [facility] Comment: Noted by instrumentation instructor. FIO2 Art 40 % [facility] PF Ratio Art 208 [facility] Specimen Anatomical Collection Method Collection Time Receive d Time (Source) Location / / Volume Laterality Blood specimen 07/08/2017 4:04 AM 017 4:04 (specimen) EST AM EST Daphne Shahid MD CHEMISTRY ORDERABLES Performing Organization Address City/State/ZIP Code Phon e Number [address] Scan, Peripheral Blood (07/08/2017 [...] Address City/State/ZIP Code Phon e Number [address] (ABNORMAL) Differential, Automated (07/08/2017 4:00 AM EST) Patholo gist Method Time Signature Neutrophils % 85.4 % [facility] Neutr Abs (ANC) 16.07 (H) 1.70 - [facility] 6.10 [facility] x10(3)/[facility] L LABORATORY Lymphocytes % 3.5 % [facility] Lymphocytes Abs 0.6 (L) 0.9 - 3.2 [facility] x10(3)/[facility] LABORATORY Monocytes % 10.4 % [facility] Monocyte Abs 2.0 (H) 0.3 - 0.9 [facility] x10(3)/[facility] LABORATORY Eosinophils % 0.0 % [facility] Eosinophils Abs 0.0 0.0 - 0.4 [facility] x10(3)/[facility] LABORATORY Basophils % 0.1 % [facility] Basophils Abs 0.0 0.0 - 0.1 [facility] x10(3)/[facility] LABORATORY Immature Gran % 0.60 % [...] Gran Abs 0.12 (H) 0.00 - 0.04 x10(3)/[facility] LABORATORY Specimen Anatomical Collection Method Collection Time Receive d Time (Source) Location / / Volume Laterality Blood specimen 07/08/2017 4:00 AM 017 4:09 (specimen) EST AM EST Resulting Agency Comment Spec In Lab Yuan Webber MD HEMATOLOGY ORDERABLES Performing Organization Address City/State/[place] [address] (ABNORMAL) Hemogram (07/08/2017 4:00 AM EST) Analysis Performed At Patho logist Time Signature WBC 18.8 (H) 4.0 - 9.5 [facility] x10(3)/[facility] LABORATORY RBC 4.00 (L) 4.58 - [facility] 5.54 [facility] x10(6)/[facility] LABORATORY Hemoglobin 11.9 (L) 13.7 - [facility] 16.5 gm/dL [facility] Hematocrit 35.9 (L) 40.5 - [place] DAVIS 48.5 % [facility] MCV 89.8 82.9 - [facility] 93.1 [facility] LABORATORY MCH 29.8 27.5 - [place] DAVIS 32.1 pg [facility] MCHC 33.1 32.0 - [place] ZHAORYAN 35.7 gm/dL [facility] Platelets 232 145 - 357 [facility] x10(3)/[facility] LABORATORY RDWSD 47.6 (H) 36.0 - [place] ZHAORYAN 45.0 [facility] LABORATORY RDWCV 14.5 (H) 11.4 - [facility] 13.8 % [facility] MPV 9.5 7.6 - 12.9 [facility] LABORATORY nRBC % Auto 0.0 % [facility] nRBC Abs Auto 0.000 0.000 - [facility] 0.000 [facility] x10(3)/[facility] LABORATORY Specimen Anatomical Collection Method Collection Time Receive d Time (Source) Location / / Volume Laterality Blood specimen 07/08/2017 4:00 AM 017 4:09 (specimen) EST AM EST Resulting Agency Comment Spec In Lab Yuan Webber MD HEMATOLOGY ORDERABLES Performing Organization Address City/State/ZIP Code Phon e Number [place] [id number] (ABNORMAL) Electrolytes panel (07/08/2017 4:00 AM EST) P athologist Signature Sodium 139 135 - 145 [facility] mmol/L [facility] Potassium 4.7 3.5 - 5.0 [facility] mmol/L [facility] Comment: result rechecked-JLK Please note: ??Patients with WBC >100,00 0 may have falsely elevated Potassium levels. ??For accurate Potassium quantif ication in these patients send serum separator tube (gold top) for subsequent determinations. ??Contact the Clinical Chemistry Laboratory if there are any qu estions. Chloride 104 98 - 107 mmol/L [facility] CO2 21 (L) 22 - 31 mmol/L [facility] Anion Gap 14 5 - 15 mmol/L [facility] Specimen Anatomical Collection Method Collection Time Receive d Time (Source) Location / / Volume Laterality Blood specimen 07/08/2017 4:00 AM 017 4:10 (specimen) EST AM EST Resulting Agency Comment Spec In Lab Yuan Webber MD CHEMISTRY ORDERABLES Performing Organization Address City/State/[place] [address] (ABNORMAL) Cardiac Enzymes (LEB/CGP) (07/08/2017 4:00 AM EST) P athologist Signature Troponin-T 1.88 (H) 0.00 - [facility] 0.00 ng/mL [facility] Comment: The 99th percentile [...] additional sample may be indicated. Reference: Third [place] Definition of Myocardial Infarction. Journal of the [place] College of Cardiology 2012;60:1581-98 CK, Total 413 (H) 0 - 200 unit/L [facility] Comment: result rechecked-JLK Specimen Anatomical Collection Method Collection Time Receive d Time (Source) Location / / Volume Laterality Blood specimen 07/08/2017 4:00 AM 017 4:09 (specimen) EST AM EST Resulting Agency Comment Spec In Lab Yuan Webber MD CHEMISTRY ORDERABLES Performing Organization Address City/[facility]/ZIP Code Phon e Number [address] (ABNORMAL) Glucose, fasting (07/08/2017 4:00 AM EST) P athologist Signature Glucose 287 (H) 65 - 99 [facility] F[facility] mg/dL [facility] Comment: ?Fasting* Glucose Interpretive [...] of Diabetes Mellitus, Position Statement from the [place] Diabetes Association. ??Diabete s Care, Volume 33, Supplement 1, Jul 2009 Specimen Anatomical Collection Method Collection Time Receive d Time (Source) Location / / Volume Laterality Blood specimen 07/08/2017 4:00 AM 017 4:09 (specimen) EST AM EST Resulting Agency Comment Spec In Lab Yuan Webber MD CHEMISTRY ORDERABLES Performing Organization Address City/[facility]/[place] [address] (ABNORMAL) Creatinine (07/08/2017 4:00 AM EST) Analysis Performed At Patho logist Time Signature Creatinine 1.55 (H) 0.80 - [place] ZHAORYAN 1.50 mg/dL [facility] Estimated GFR 44 (L) >=60 [facility] Comment: The reported eGFR should be multiplied b y 1.2 for patients. The MDRD is not an appropriate measure o f renal function for patients with body mass extremes or in patients with acute kidney failure. http://[employer].Cream.HR/nkdep http://[employer] EDI/DHMCnkf Specimen Anatomical Collection Method Collection Time Receive d Time (Source) Location / / Volume Laterality Blood specimen 07/08/2017 4:00 AM 017 4:09 (specimen) EST AM EST Resulting Agency Comment Spec In Lab Yuan Webber MD CHEMISTRY ORDERABLES Performing Organization Address City/[facility]/[place] [address] BUN (07/08/2017 4:00 AM EST) athologist Signature BUN 16 10 - 20 [facility] mg/dL [facility] Specimen Anatomical Collection Method Collection Time Receive d Time (Source) Location / / Volume Laterality Blood specimen 07/08/2017 4:00 AM 017 4:09 (specimen) EST AM EST Resulting Agency Comment Spec In Lab Yuan Webber MD CHEMISTRY ORDERABLES Performing Organization Address City/[facility]/[place] [address] (ABNORMAL) POCT Glucose (07/08/2017 3:00 AM EST) athologist Signature POC Glucose 273 (H) 65 - 199 [facility] mg/dL [facility] Comment: Supplemental ranges: <140 mg/dL before meals <180 mg/dL all other times of the day Specimen Anatomical Collection Method Collection Time Receive d Time (Source) Location / / Volume Laterality Blood specimen 07/08/2017 3:00 AM 017 3:00 (specimen) EST AM EST Daphne Shahid MD POINT OF CARE TEST ORDERABLE S Performing Organization Address City/[facility]/ZIP Code Phon e Number [address] (ABNORMAL) POCT Glucose (07/08/2017 1:57 AM EST) P athologist Signature POC Glucose 288 (H) 65 - 199 [facility] mg/dL [facility] Comment: Supplemental ranges: <140 mg/dL before meals <180 mg/dL all other times of the day Specimen Anatomical Collection Method Collection Time Receive d Time (Source) Location / / Volume Laterality Blood specimen 07/08/2017 1:57 AM 017 1:57 (specimen) EST AM EST Daphne Shahid MD POINT OF CARE TEST ORDERABLE S Performing Organization Address City/State/[place] [address] (ABNORMAL) POCT Glucose (07/08/2017 1:01 AM EST) P athologist Signature POC Glucose 315 (H) 65 - 199 [facility] mg/dL [facility] Comment: Supplemental ranges: <140 mg/dL before meals <180 mg/dL all other times of the day Specimen Anatomical Collection Method Collection Time Receive d Time (Source) Location / / Volume Laterality Blood specimen 07/08/2017 1:01 AM 017 1:01 (specimen) EST AM EST Daphne Shahid MD POINT OF CARE TEST ORDERABLE S Performing Organization Address City/[facility]/[place] [address] (ABNORMAL) BLOOD GAS 2 ARTERIAL (07/08/2017 12:09 AM EST) P athologist Signature pH Art 7.26 7.35 - [facility] (Critical) 7.45 [facility] Comment: Noted by instrumentation instructor. pCO2 [...] [facility] COHB Art 0.2 % [facility] Comment: Noted by instrumentation instructor. FIO2 Art 40 % [facility] PF Ratio Art 240 [facility] Specimen Anatomical Collection Method Collection Time Receive d Time (Source) Location / / Volume Laterality Blood specimen Arterial Draw / 07/08/2017 12:09 2016 5:31 (specimen) Unknown AM EST AM EST Resulting Agency Comment Spec In Lab Samy Maldonado MD CHEMISTRY ORDERABLES Performing Organization Address City/State/[place] [address] (ABNORMAL) POCT Glucose (07/07/2017 10:56 PM EST) P athologist Signature POC Glucose 292 (H) 65 - 199 [facility] mg/dL [facility] Comment: Supplemental ranges: <140 mg/dL before meals <180 mg/dL all other times of the day Specimen Anatomical Collection Method Collection Time Receive d Time (Source) Location / / Volume Laterality Blood specimen 07/07/2017 10:56 7 (specimen) PM EST 10:56 PM EST Daphne Shahid MD POINT OF CARE TEST ORDERABLE S Performing Organization Address City/State/[place] [address] (ABNORMAL) BLOOD GAS 2 ARTERIAL (07/07/2017 10:04 PM EST) athologist Signature pH Art 7.22 7.35 - [facility] (Critical) 7.45 [facility] Comment: Noted by instrumentation instructor. pCO2 [...] [facility] COHB Art 0.7 % [facility] Comment: Noted by instrumentation instructor. FIO2 Art 40 % [facility] PF Ratio Art 235 [facility] Specimen Anatomical Collection Method Collection Time Receive d Time (Source) Location / / Volume Laterality Blood specimen 07/07/2017 10:04 7 (specimen) PM EST 10:04 PM EST Daphne Shahid MD CHEMISTRY ORDERABLES Performing Organization Address City/[facility]/ZIP Code Phon e Number [address] (ABNORMAL) Hemoglobin (07/07/2017 10:00 PM EST) P athologist Signature Hemoglobin 12.8 (L) 13.7 - [facility] 16.5 gm/dL [facility] Specimen Anatomical Collection Method Collection Time Receive d Time (Source) Location / / Volume Laterality Blood specimen 07/07/2017 10:00 7 (specimen) PM EST 10:13 PM EST Resulting Agency Comment Spec In Lab Yuan Webber MD HEMATOLOGY ORDERABLES Performing Organization Address City/[facility]/[place] [address] (ABNORMAL) Potassium (07/07/2017 10:00 PM EST) P athologist Signature Potassium 3.4 (L) 3.5 - 5.0 [facility] mmol/L [facility] Comment: Please note: ??Patients [...] Organization Address City/State/[place] [address] (ABNORMAL) POCT Glucose (07/07/2017 8:49 PM EST) P athologist Signature POC Glucose 241 (H) 65 - 199 [facility] mg/dL [facility] Comment: Supplemental ranges: <140 mg/dL before meals <180 mg/dL all other times of the day Specimen Anatomical Collection Method Collection Time Receive d Time (Source) Location / / Volume Laterality Blood specimen 07/07/2017 8:49 PM 017 8:49 (specimen) EST PM EST Daphne Shahid MD POINT OF CARE TEST ORDERABLE S Performing Organization Address City/[facility]/[place] [address] Prepare Albumin 5% in [...] Organization Address City/State/[place] [address] EKG 12 Lead (07/07/2017 7:17 PM EST) Component Value Ref Range Test Analysis Performed Pathologis t Method Time At Signature Ventricular rate 75 BPM MUSE SYSTEM Atrial Rate 75 BPM MUSE SYSTEM P-R Interval 168 ms MUSE SYSTEM QRS Duration 104 ms MUSE SYSTEM Q-T Interval 462 ms MUSE SYSTEM QTC Calculated 515 ms MUSE SYSTEM (Bezet) Calculated P Carmel 52 degrees MUSE SYSTEM Calculated R Carmel -40 degrees MUSE SYSTEM Calculated T Carmel 39 degrees MUSE SYSTEM INTERPRETATION Normal sinus [...] 7:17 PM 7 8:11 EST AM EST uYan Webber MD ECG ORDERABLES Performing Organization Address [...] pH Art 7.21 7.35 - [facility] (Critical) 7.45 [facility] Comment: Noted by instrumentation instructor. pCO2 [...] [facility] COHB Art 0.5 % [facility] Comment: Noted by instrumentation instructor. [...] [facility] Comment: Noted by instrumentation instructor. FIO2 Art 100 % [facility] PF Ratio Art 238 [facility] Specimen Anatomical Collection Method Collection Time Receive d Time (Source) Location / / Volume Laterality Blood specimen 07/07/2017 6:57 PM 017 6:57 (specimen) EST PM EST Daphne hSahid MD CHEMISTRY ORDERABLES Performing Organization Address City/State/[place] [address] (ABNORMAL) BLOOD GAS 2 ARTERIAL (07/07/2017 5:31 PM EST) athologist Signature pH Art 7.29 7.35 - [facility] (Critical) 7.45 [facility] Comment: Noted by instrumentation instructor. pCO2 [...] [facility] COHB Art 0.3 % [facility] Shahid MD CHEMISTRY ORDERABLES Performing Organization Address City/[facility]/ZIP Code Phon e Number [address] Fibrinogen (07/07/2017 5:30 PM EST) P athologist Signature Fibrinogen 224 180 - 510 [facility] mg/dL [facility] Comment: Called by: JEET, [...] Perez MD HEMATOLOGY ORDERABLES Performing Organization Address City/[facility]/ZIP [facility] [place] Ph[place] e Number [address] APTT (07/07/2017 5:30 PM [...] Perez MD HEMATOLOGY ORDERABLES Performing Organization Address City/[facility]/ZIP Code Phon e Number [address] (ABNORMAL) Prothrombin Time (07/07/2017 5:30 [...] Perez MD HEMATOLOGY ORDERABLES Performing Organization Address City/[facility] [place] [address] (ABNORMAL) Hemogram (07/07/2017 5:30 PM EST) P athologist Signature WBC 19.6 (H) 4.0 - 9.5 [facility] x10(3)/[facility] LABORATORY RBC 3.08 (L) 4.58 - [facility] 5.54 [facility] x10(6)/[facility] LABORATORY Hemoglobin 9.2 (L) 13.7 - [facility] 16.5 gm/dL [facility] Hematocrit 28.0 (L) 40.5 - [facility] 48.5 % [facility] Comment: This result has been called to MONICA MORAN by DONALD GROSSMAN on 07 07 2017 at 1759, and has been read back. MCV 90.9 82.9 - [address].1 [facility] LABORATORY MCH 29.9 27.5 - 32.1 pg [facility] MCHC 32.9 32.0 - 35.7 gm/dL [facility] LAB[facility]ATORY Platelets 155 145 - 357 x10(3)/[facility] LABORATORY RDWSD 46.5 (H) 36.0 - 45.0 [facility] LABORATORY RDWCV 14.1 (H) 11.4 - 13.8 % [facility] MPV 9.5 7.6 - 12.9 [facility] LABORATORY nRBC % Auto 0.0 % [facility] LAB[facility]ATORY nRBC Abs Auto 0.000 0.000 - 0.000 x10(3)/[facility] LABORATORY Specimen Anatomical Collection Method Collection Time Receive d Time (Source) Location / / Volume Laterality Blood specimen 07/07/2017 5:30 PM 017 5:34 (specimen) EST PM EST Resulting Agency Comment Spec In Lab Yifan Perez MD HEMATOLOGY ORDERABLES Performing Organization Address City/State/[place] [address] Prepare Platelets, Apheresis (07/07/2017 5:00 PM EST) P athologist Signature Dispensed? Yes [facility] Specimen Anatomical Collection Method Collection Time Receive d Time (Source) Location / / Volume Laterality Blood specimen 07/07/2017 5:00 PM 017 4:58 (specimen) EST PM EST Daphne Shahid MD BLOOD BANK ORDERABLES Performing Organization Address City/State/[place] [address] Platelet count (07/07/2017 4:55 PM EST) athologist Signature Platelets 177 145 - 357 [facility] x10(3)/[facility] LABORATORY Plat Immature 1.5 0.0 - 7.4 [facility] % % [facility] Comment: Limitation of the Immature Platelet Frac tion (IPF)-May be less reliable when the platelet count is less than 60t982/u L due to statistical imprecision. The IPF [...] in a decreased state of production. References: [employer] The Clinical Value of the Immature Platelet Fraction (IPF) in Cell Recovery Document Number 10-1143 12/2010 [employer] The Role of the Imm ature [...] City/State/[place] [address] [facility] LAB[address] Drive (ABNORMAL) Hemoglobin and Hematocrit, blood (07/07/2017 4:55 PM EST) athologist Signature Hemoglobin 9.1 (L) 13.7 - 16.5 [facility] gm/dL [facility] Comment: This result has [...] City/State/[place] [address] (ABNORMAL) BLOOD GAS 2 ARTERIAL (07/07/2017 4:38 PM EST) Analysis Performed At Patho logist Time Signature pH Art 7.37 7.35 - [facility] 7.45 [facility] pCO2 Art 44 35 - 45 [facility] mmHg [facility] pO2 Art 322 (H) 85 - 104 [facility] LABORATORY HCO3 Art 24.9 20.0 - [facility] 26.0 [facility] mmol/[facility] LABORATORY BE Art -0.4 -3.0 - 3.0 [facility] mmol/L [facility] Hgb Blood Gas 10.1 (L) 13.7 - [facility] 16.5 gm/dL [facility] O2HB Art 98.7 (H) 94.0 - [facility] 97.0 % [facility] COHB Art 0.1 % [facility] Comment: Noted by instrumentation instructor. [...] City/State/[place] [address] (ABNORMAL) BLOOD GAS 2 VENOUS (07/07/2017 4:06 PM EST) Analysis Performed At Patho logist Time Signature pH Cody 7.31 (L) 7.32 - [facility] 7.42 [facility] pCO2 Cody 47 41 - 51 [facility] LABORATORY pO2 Cody 53 (H) 25 - 40 [facility] LABORATORY HCO3 Cody 22.7 mmol/L [facility] BE Cody -3.7 mmol/L [facility] Hgb Blood Gas 10.2 (L) 13.7 - [facility] 16.5 gm/dL [facility] O2HB Cody 81.0 % [facility] Comment: Noted by instrumentation instructor. [...] [facility] BGas Source Venous [facility] Specimen Anatomical Collection Method Collection Time Receive d Time (Source) Location / / Volume Laterality Blood specimen 07/07/2017 4:06 PM 017 4:06 (specimen) EST PM EST Daphne Shahid MD CHEMISTRY ORDERABLES Performing Organization Address City/State/[place] [address] (ABNORMAL) BLOOD GAS 2 ARTERIAL (07/07/2017 4:05 PM EST) Analysis Performed At Patho logist Time Signature pH Art 7.36 7.35 - [facility] 7.45 [facility] pCO2 Art 40 35 - 45 [facility] mmHg [facility] pO2 Art 282 (H) 85 - 104 [facility] LABORATORY HCO3 Art 22.1 20.0 - [facility] 26.0 [facility] mmol/L [facility] LABORATORY BE Art -3.4 (L) -3.0 - 3.0 [facility] mmol/L [facility] Hgb Blood Gas 10.2 (L) 13.7 - [facility] 16.5 gm/dL [facility] O2HB Art 98.4 (H) 94.0 - [facility] 97.0 % [facility] COHB Art 0.3 % [facility] Comment: Noted by instrumentation instructor. [...] PM 017 4:05 (specimen) EST PM EST Dpahne Shahid MD CHEMISTRY ORDERABLES Performing Organization Address City/State/[place] [address] (ABNORMAL) BLOOD GAS 2 ARTERIAL (07/07/2017 2:29 PM EST) Analysis Performed At Patho logist Time Signature pH Art 7.43 7.35 - [facility] 7.45 [facility] pCO2 Art 36 35 - 45 [facility] LABORATORY pO2 Art 221 (H) 85 - 104 [facility] LABORATORY HCO3 Art 23.2 20.0 - [facility] 26.0 [facility] mmol/L [facility] LABORATORY BE Art -1.2 -3.0 - 3.0 [facility] mmol/L [facility] Hgb Blood Gas 13.9 13.7 - [facility] 16.5 gm/dL [facility] O2HB Art 97.8 (H) 94.0 - [facility] 97.0 % [facility] COHB Art 1.1 % [facility] [...] City/State/[place] [address] Prepare Coag Factors (Non-Hemophilia) (07/07/2017 1:25 PM EST) P athologist Signature Dispensed? Yes [facility] Specimen Anatomical Collection Method Collection Time Receive d Time (Source) Location / / Volume Laterality Blood specimen 07/07/2017 1:25 PM 017 1:21 (specimen) EST PM EST Daphne Shahid MD BLOOD BANK ORDERABLES Performing Organization Address City/State/ZIP Code Phon e Number [address] Prepare RBC (07/07/2017 1:10 PM EST) P athologist Signature Dispensed? Yes [facility] Specimen Anatomical Collection Method Collection Time Receive d Time (Source) Location / / Volume Laterality Blood specimen 07/07/2017 1:10 PM 017 1:05 (specimen) EST PM EST Daphne Shahid MD BLOOD BANK ORDERABLES Performing Organization Address City/[facility]/ZIP Code Phon e Number [address] POCT Glucose (07/07/2017 11:56 AM EST) P athologist Signature POC Glucose 188 65 - 199 [facility] mg/dL [facility] Comment: Supplemental ranges: <140 mg/dL before meals <180 mg/dL all other times of the day Specimen Anatomical Collection Method Collection Time Receive d Time (Source) Location / / Volume Laterality Blood specimen 07/07/2017 11:56 7 (specimen) AM EST 11:56 AM EST Daphne Shahid MD POINT OF CARE TEST ORDERABLE S Performing Organization Address City/[facility]/[place] [address] POCT Glucose (07/07/2017 11:05 AM EST) P athologist Signature POC Glucose 168 65 - 199 [facility] mg/dL [facility] Comment: Supplemental ranges: <140 mg/dL before meals <180 mg/dL all other times of the day Specimen Anatomical Collection Method Collection Time Receive d Time (Source) Location / / Volume Laterality Blood specimen 07/07/2017 11:05 7 (specimen) AM EST 11:05 AM EST Daphne Shahid MD POINT OF CARE TEST ORDERABLE S Performing Organization Address City/State/[place] [address] POCT Glucose (07/07/2017 10:02 AM EST) athologist Signature POC Glucose 191 65 - 199 [facility] mg/dL [facility] Comment: Supplemental ranges: <140 mg/dL before meals <180 mg/dL all other times of the day Specimen Anatomical Collection Method Collection Time Receive d Time (Source) Location / / Volume Laterality Blood specimen 07/07/2017 10:02 7 (specimen) AM EST 10:02 AM EST Daphne Shahid MD POINT OF CARE TEST ORDERABLE S Performing Organization Address City/State/ZIP Code Phon e Number [address] POCT Glucose (07/07/2017 7:53 AM EST) athologist Signature POC Glucose 178 65 - 199 [facility] mg/dL [facility] Comment: Supplemental ranges: <140 mg/dL before meals <180 mg/dL all other times of the day Specimen Anatomical Collection Method Collection Time Receive d Time (Source) Location / / Volume Laterality Blood specimen 07/07/2017 7:53 AM 017 7:53 (specimen) EST AM EST Daphne Shahid MD POINT OF CARE TEST ORDERABLE S Performing Organization Address City/State/[place] [address] POCT Glucose (07/07/2017 7:03 AM EST) athologist Signature POC Glucose 188 65 - 199 [facility] mg/dL [facility] Comment: Supplemental ranges: <140 mg/dL before meals <180 mg/dL all other times of the day Specimen Anatomical Collection Method Collection Time Receive d Time (Source) Location / / Volume Laterality Blood specimen 07/07/2017 7:03 AM 017 7:03 (specimen) EST AM EST Daphne Shahid MD POINT OF CARE TEST ORDERABLE S Performing Organization Address City/State/[place] [address] (ABNORMAL) POCT Glucose (07/07/2017 6:17 AM EST) athologist Signature POC Glucose 207 (H) 65 - 199 [facility] mg/dL [facility] Comment: Supplemental ranges: <140 mg/dL before meals <180 mg/dL all other times of the day Specimen Anatomical Collection Method Collection Time Receive d Time (Source) Location / / Volume Laterality Blood specimen 07/07/2017 6:17 AM 017 6:17 (specimen) EST AM EST Daphne Shahid MD POINT OF CARE TEST ORDERABLE S Performing Organization Address City/State/ZIP Code Phon e Number [place] [id number] Differential, Automated (07/07/2017 5:15 AM EST) athologist [facility] Neutrophils % 69.7 % [facility] Neutr Abs (ANC) 5.32 1.70 - [facility] 6.10 [facility] x10(3)/[facility] LABORATORY Lymphocytes % 16.3 % [facility] Lymphocytes Abs 1.2 0.9 - 3.2 [facility] x10(3)/[facility] LABORATORY Monocytes % 10.5 % [facility] Monocyte Abs 0.8 0.3 - 0.9 [facility] x10(3)/[facility] LABORATORY Eosinophils % 2.5 % [facility] Eosinophils Abs 0.2 0.0 - 0.4 [facility] x10(3)/[facility] LABORATORY Basophils % 0.7 % [facility] Basophils Abs 0.0 0.0 - 0.1 [facility] x10(3)/[facility] LABORATORY Immature Gran % 0.30 % [facility] [...] Gran Abs 0.02 0.00 - 0.04 x10(3)/[facility] LABORATORY Specimen Anatomical Collection Method Collection Time Receive d Time (Source) Location / / Volume Laterality Blood specimen 07/07/2017 5:15 AM 017 5:34 (specimen) EST AM EST Resulting Agency Comment Spec In Lab Daphne Shahid MD HEMATOLOGY ORDERABLES Performing Organization Address City/State/[place] [address] (ABNORMAL) Hemogram (07/07/2017 5:15 AM EST) Analysis Performed At Patho logist Time Signature WBC 7.6 4.0 - 9.5 [facility] x10(3)/[facility] LABORATORY RBC 4.82 4.58 - [facility]54 [facility] x10(6)/[facility] LABORATORY Hemoglobin 14.4 13.7 - [facility] 16.5 gm/dL [facility] Hematocrit 42.1 40.5 - [facility] 48.5 % [facility] MCV 87.3 82.9 - [facility] 93[facility]1 [facility] LABORATORY MCH 29.9 27.5 - [facility] 32.1 pg [facility] MCHC 34.2 32.0 - [facility] 35.7 gm/dL [facility] Platelets 188 145 - 357 [facility] x10(3)/[facility] LABORATORY RDWSD 45.1 (H) 36.0 - [facility] 45.0 [facility] LABORATORY RDWCV 14.3 (H) 11.4 - [facility] 13.8 % [facility] MPV 9.4 7.6 - 12.9 [facility] LABORATORY nRBC % Auto 0.0 % [facility] nRBC Abs Auto 0.000 0.000 - [facility] 0.000 [facility] x10(3)/[facility] LABORATORY Specimen Anatomical Collection Method Collection Time Receive d Time (Source) Location / / Volume Laterality Blood specimen 07/07/2017 5:15 AM 017 5:34 (specimen) EST AM EST Resulting Agency Comment Spec In Lab Daphne Shahid MD HEMATOLOGY ORDERABLES Performing Organization Address City/State/[place] [address] (ABNORMAL) APTT (07/07/2017 5:15 [...] Sahhid MD HEMATOLOGY ORDERABLES Performing Organization Address City/[facility]/[place] [address] Magnesium (07/07/2017 5:15 AM EST) athologist Signature Magnesium 0.94 0.69 - 1.07 [facility] mmol/L [facility] Specimen Anatomical Collection Method Collection Time Receive d Time (Source) Location / / Volume Laterality Blood specimen 07/07/2017 5:15 AM 017 5:34 (specimen) EST AM EST Resulting Agency Comment Spec In Lab Daphne Shahid MD CHEMISTRY ORDERABLES Performing Organization Address City/[facility]/[place] [address] (ABNORMAL) Basic Metabolic Panel (non-fasting) (07/07/2017 5:15 AM EST) athologist Signature Glucose Lvl 203 (H) 65 - 199 [facility] mg/dL [facility] [...] [facility] Estimated GFR >60 >=60 [facility] Comment: The reported eGFR should be multiplied b y 1.2 for patients. The MDRD is not an appropriate measure o f renal function for patients with body mass extremes or in patients with acute kidney failure. http://Gate[facility] EDI/DHnkdep http://[facility] EDI/DHMCnkf Specimen Anatomical Collection Method Collection Time Receive d Time (Source) Location / / Volume Laterality Blood specimen 07/07/2017 5:15 AM 017 5:34 (specimen) EST AM EST Resulting Agency Comment Spec In Lab Daphne Shahid MD CHEMISTRY ORDERABLES Performing Organization Address City/State/[place] [address] (ABNORMAL) Cardiac Enzymes (LEB/CGP) (07/07/2017 5:15 AM EST) P athologist Signature Troponin-T 2.07 (H) 0.00 - [facility] 0.00 ng/mL [facility] Comment: The 99th percentile [...] additional sample may be indicated. Reference: Third [place] Definition of Myocardial Infarction. Journal of the [employer] [place] College [employer]iology 2012;60:1581-98 CK, Total 88 0 - 200 unit/L [facility] Specimen Anatomical Collection Method Collection Time Receive d Time (Source) Location / / Volume Laterality Blood specimen 07/07/2017 5:15 AM 017 5:34 (specimen) EST AM EST Resulting Agency Comment Spec In Lab Daphne Shahid MD CHEMISTRY ORDERABLES Performing Organization Address City/[facility]/ZIP Code Phon e Number [address] POCT Glucose (07/07/2017 5:01 AM EST) athologist Signature POC Glucose 182 65 - 199 [facility] mg/dL [facility] Comment: Supplemental ranges: <140 mg/dL before meals <180 mg/dL all other times of the day Specimen Anatomical Collection Method Collection Time Receive d Time (Source) Location / / Volume Laterality Blood specimen 07/07/2017 5:01 AM 017 5:01 (specimen) EST AM EST Daphne Shahid MD POINT OF CARE TEST ORDERABLE S Performing Organization Address City/[facility]/ZIP [facility] [place] [address] POCT Glucose (07/07/2017 4:08 AM EST) athologist Signature POC Glucose 199 65 - 199 [facility] mg/dL [facility] Comment: Supplemental ranges: <140 mg/dL before meals <180 mg/dL all other times of the day Specimen Anatomical Collection Method Collection Time Receive d Time (Source) Location / / Volume Laterality Blood specimen 07/07/2017 4:08 AM 017 4:08 (specimen) EST AM EST Daphne Shahid MD POINT OF CARE TEST ORDERABLE S Performing Organization Address City/State/[place] [address] POCT Glucose (07/07/2017 3:03 AM EST) athologist Signature POC Glucose 188 65 - 199 [place] RYAN mg/dL [facility] Comment: Supplemental ranges: <140 mg/dL before meals <180 mg/dL all other times of the day Specimen Anatomical Collection Method Collection Time Receive d Time (Source) Location / / Volume Laterality Blood specimen 07/07/2017 3:03 AM 017 3:03 (specimen) EST AM EST Daphne Shahid MD POINT OF CARE TEST ORDERABLE S Performing Organization Address City/State/[place] [address] (ABNORMAL) POCT Glucose (07/07/2017 2:08 AM EST) athologist Signature POC Glucose 200 (H) 65 - 199 [facility]dL [facility] Comment: Supplemental ranges: <140 mg/dL before meals <180 mg/dL all other times of the day Specimen Anatomical Collection Method Collection Time Receive d Time (Source) Location / / Volume Laterality Blood specimen 07/07/2017 2:08 AM 017 2:08 (specimen) EST AM EST Daphne Shahid MD POINT OF CARE TEST ORDERABLE S Performing Organization Address City/State/ZIP Code Phon e Number [address] (ABNORMAL) POCT Glucose (07/07/2017 1:31 AM EST) athologist Signature POC Glucose 209 (H) 65 - 199 [facility]dL [facility] Comment: Supplemental ranges: <140 mg/dL before meals <180 mg/dL all other times of the day Specimen Anatomical Collection Method Collection Time Receive d Time (Source) Location / / Volume Laterality Blood specimen 07/07/2017 1:31 AM 017 1:31 (specimen) EST AM EST Daphne Shahid MD POINT OF CARE TEST ORDERABLE S Performing Organization Address City/State/ZIP Code Phon e Number [place] [id number] XR Chest PA or [...] Glucose 161 65 - 199 [facility] mg/dL [facility] Comment: Supplemental ranges: <140 mg/dL before meals <180 mg/dL all other times of the day Specimen Anatomical Collection Method Collection Time Receive d Time (Source) Location / / Volume Laterality Blood specimen 07/07/2017 12:07 7 (specimen) AM EST 12:07 AM EST Daphne Shahid MD POINT OF CARE TEST ORDERABLE S Performing Organization Address City/State/[place] [address] (ABNORMAL) APTT (07/07/2017 12:00 [...] Shahid MD HEMATOLOGY ORDERABLES Performing Organization Address City/[facility]/[place] [address] POCT Glucose (07/06/2017 9:55 PM EST) athologist Signature POC Glucose 109 65 - 199 [facility] mg/dL [facility] Comment: Supplemental ranges: <140 mg/dL before meals <180 mg/dL all other times of the day Specimen Anatomical Collection Method Collection Time Receive d Time (Source) Location / / Volume Laterality Blood specimen 07/06/2017 9:55 PM 017 9:55 (specimen) EST PM EST Daphne Shahid MD POINT OF CARE TEST ORDERABLE S Performing Organization Address City/[facility]/[place] [address] POCT Glucose (07/06/2017 9:04 PM EST) athologist Signature POC Glucose 120 65 - 199 [facility]/dL [facility] Comment: Supplemental ranges: <140 mg/dL before meals <180 mg/dL all other times of the day Specimen Anatomical Collection Method Collection Time Receive d Time (Source) Location / / Volume Laterality Blood specimen 07/06/2017 9:04 PM 017 9:04 (specimen) EST PM EST Daphne Shahid MD POINT OF CARE TEST ORDERABLE S Performing Organization Address City/[facility]/[place] [address] POCT Glucose (07/06/2017 7:45 PM EST) athologist Signature POC Glucose 158 65 - 199 [facility] mg/dL [facility] Comment: Supplemental ranges: <140 mg/dL before meals <180 mg/dL all other times of the day Specimen Anatomical Collection Method Collection Time Receive d Time (Source) Location / / Volume Laterality Blood specimen 07/06/2017 7:45 PM 017 7:45 (specimen) EST PM EST Daphne Shahid MD POINT OF CARE TEST ORDERABLE S Performing Organization Address City/[facility]/[place] [address] Potassium (07/06/2017 7:40 PM EST) athologist Signature Potassium 3.9 3.5 - 5.0 [facility] mmol/L [facility] Comment: Please note: ??Patients [...] Shahid MD CHEMISTRY ORDERABLES Performing Organization Address City/[facility]/[place] [address] (ABNORMAL) Cardiac Enzymes (LEB/CGP) (07/06/2017 7:40 PM EST) athologist Signature Troponin-T 2.27 (H) 0.00 - [place] OLIVASCK 0.00 ng/mL [facility] Comment: The 99th percentile [...] additional sample may be indicated. Reference: Third [place] Definition of Myocardial Infarction. Journal of the [employer] [place] College [employer]iology 2012;60:1581-98 CK, Total 93 0 - 200 unit/L [facility] Specimen Anatomical Collection Method Collection Time Receive d Time (Source) Location / / Volume Laterality Blood specimen 07/06/2017 7:40 PM 017 7:52 (specimen) EST PM EST Resulting Agency Comment Spec In Lab Daphne Shahid MD CHEMISTRY ORDERABLES Performing Organization Address City/State/[place] [address] (ABNORMAL) POCT Glucose (07/06/2017 7:13 PM EST) athologist Signature POC Glucose 200 (H) 65 - 199 [facility] Comment: Supplemental ranges: <140 mg/dL before meals <180 mg/dL all other times of the day Specimen Anatomical Collection Method Collection Time Receive d Time (Source) Location / / Volume Laterality Blood specimen 07/06/2017 7:13 PM 017 7:13 (specimen) EST PM EST Daphne Shahid MD POINT OF CARE TEST ORDERABLE S Performing Organization Address City/[facility]/[place] [address] (ABNORMAL) APTT (07/06/2017 6:15 [...] Organization Address City/State/[place] [address] (ABNORMAL) POCT Glucose (07/06/2017 6:03 PM EST) athologist Signature POC Glucose 236 (H) 65 - 199 [facility] mg/dL [facility] Comment: Supplemental ranges: <140 mg/dL before meals <180 mg/dL all other times of the day Specimen Anatomical Collection Method Collection Time Receive d Time (Source) Location / / Volume Laterality Blood specimen 07/06/2017 6:03 PM 017 6:03 (specimen) EST PM EST Daphne Shahid MD POINT OF CARE TEST ORDERABLE S Performing Organization Address City/[facility]/[place] [address] (ABNORMAL) POCT Glucose (07/06/2017 5:01 PM EST) athologist Signature POC Glucose 235 (H) 65 - 199 [facility] mg/dL [facility] Comment: Supplemental ranges: <140 mg/dL before meals <180 mg/dL all other times of the day Specimen Anatomical Collection Method Collection Time Receive d Time (Source) Location / / Volume Laterality Blood specimen 07/06/2017 5:01 PM 017 5:01 (specimen) EST PM EST Daphne Shahid MD POINT OF CARE TEST ORDERABLE S Performing Organization Address City/State/[place] [address] (ABNORMAL) POCT Glucose (07/06/2017 4:06 PM EST) P athologist Signature POC Glucose 202 (H) 65 - 199 [place] [facility] mg/dL [facility] Comment: Supplemental ranges: <140 mg/dL before meals <180 mg/dL all other times of the day Specimen Anatomical Collection Method Collection Time Receive d Time (Source) Location / / Volume Laterality Blood specimen 07/06/2017 4:06 PM 017 4:06 (specimen) EST PM EST Daphne Shahid MD POINT OF CARE TEST ORDERABLE S Performing Organization Address City/State/[place] [address] POCT Glucose (07/06/2017 2:59 PM EST) athologist Signature POC Glucose 178 65 - 199 [place] ZHAORYAN mg/dL [facility] Comment: Supplemental ranges: <140 mg/dL before meals <180 mg/dL all other times of the day Specimen Anatomical Collection Method Collection Time Receive d Time (Source) Location / / Volume Laterality Blood specimen 07/06/2017 2:59 PM 017 2:59 (specimen) EST PM EST Daphne Shahid MD POINT OF CARE TEST ORDERABLE S Performing Organization Address City/State/[place] [address] (ABNORMAL) Cardiac Enzymes (LEB/CGP) (07/06/2017 2:10 PM EST) P athologist Signature Troponin-T 2.34 (H) 0.00 - [facility] 0.00 ng/mL [facility] Comment: The 99th percentile [...] additional sample may be indicated. Reference: Third [place] Definition of Myocardial Infarction. Journal of the [place] College of [employer]iology 2012;60:1581-98 CK, Total 101 0 - 200 unit/L [facility] Specimen Anatomical Collection Method Collection Time Receive d Time (Source) Location / / Volume Laterality Blood specimen 07/06/2017 2:10 PM 017 2:26 (specimen) EST PM EST Resulting Agency Comment Spec In Lab Daphne Shahid MD CHEMISTRY ORDERABLES Performing Organization Address City/State/[place] [address] POCT Glucose (07/06/2017 2:08 PM EST) P athologist Signature POC Glucose 192 65 - 199 [facility] mg/dL [facility] Comment: Supplemental ranges: <140 mg/dL before meals <180 mg/dL all other times of the day Specimen Anatomical Collection Method Collection Time Receive d Time (Source) Location / / Volume Laterality Blood specimen 07/06/2017 2:08 PM 017 2:08 (specimen) EST PM EST Daphne Shahid MD POINT OF CARE TEST ORDERABLE S Performing Organization Address City/State/ZIP Code Phon e Number [address] POCT Glucose (07/06/2017 1:04 PM EST) P athologist Signature POC Glucose 162 65 - 199 [facility] Comment: Supplemental ranges: <140 mg/dL before meals <180 mg/dL all other times of the day Specimen Anatomical Collection Method Collection Time Receive d Time (Source) Location / / Volume Laterality Blood specimen 07/06/2017 1:04 PM 017 1:04 (specimen) EST PM EST Daphne Shahid MD POINT OF CARE TEST ORDERABLE S Performing Organization Address City/[facility]/ZIP Code Phon e Number [address] POCT Glucose (07/06/2017 12:05 PM EST) P athologist Signature POC Glucose 196 65 - 199 [facility] Comment: Supplemental ranges: <140 mg/dL before meals <180 mg/dL all other times of the day Specimen Anatomical Collection Method Collection Time Receive d Time (Source) Location / / Volume Laterality Blood specimen 07/06/2017 12:05 7 (specimen) PM EST 12:05 PM EST Daphne Shahid MD POINT OF CARE TEST ORDERABLE S Performing Organization Address City/State/[place] [address] EKG 12 Lead (07/06/2017 12:00 PM EST) Component Value Ref Range Test Analysis Performed Pathologis t Method Time At Signature Ventricular rate 91 BPM MUSE SYSTEM Atrial Rate 91 BPM MUSE SYSTEM P-R Interval 140 ms MUSE SYSTEM QRS Duration 94 ms MUSE SYSTEM Q-T Interval 394 ms MUSE SYSTEM QTC Calculated 484 ms MUSE SYSTEM (Bezet) Calculated P Carmel 36 degrees MUSE SYSTEM Calculated R [place] -19 degrees MUSE SYSTEM Calculated T [place] 104 degrees MUSE SYSTEM INTERPRETATION Normal sinus rhythm MUSE SYSTEM 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) ST & T wave abnormality, consider lateral ischemia Abnormal ECG When compared with ECG of 05-JUL-2017 20:39, No significant change was found Confirmed by MD Luci, Taurus Braun ([id number]) on 07/06/2017 5:07:33 PM Specimen Anatomical Collection Method Collection Time Receive d Time (Source) Location / / Volume Laterality 07/06/2017 12:00 07/06/2017 5:07 PM EST PM EST Daphne Shahid MD ECG ORDERABLES Performing Organization Address City/[facility]/ZIP Code Phon e Number MUSE SYSTEM ABORH Recheck Status (07/06/2017 12:00 PM EST) [facility] Method Time Signature ABORH Type Completed [facility] LABORATORY Specimen Anatomical Collection Method Collection Time Receive d Time (Source) Location / / Volume Laterality Blood specimen 07/06/2017 12:00 7 (specimen) PM EST 12:24 PM EST Resulting Agency Comment Spec In Lab Daphne Shahid MD BLOOD BANK ORDERABLES Performing Organization Address City/[facility]/[place] [address] Antibody screen (07/06/2017 12:00 PM EST) [facility] Method Time Signature Ab Screen Negative [facility] LABORATORY Expires at 07/09/2017 [facility] 235 on: [facility] Specimen Anatomical Collection Method Collection Time Receive d Time (Source) Location / / Volume Laterality Blood specimen 07/06/2017 12:00 7 (specimen) PM EST 12:24 PM EST Resulting Agency Comment Spec In Lab Daphne Shahid MD BLOOD BANK ORDERABLES Performing Organization Address City/[facility]/[place] [address] ABO/Rh Typing (07/06/2017 12:00 [...] Organization Address City/State/[place] [address] Prothrombin Time (07/06/2017 11:24 [...] Shahid MD HEMATOLOGY ORDERABLES Performing Organization Address City/[facility]/[place] [address] (ABNORMAL) APTT (07/06/2017 11:24 [...] Comment Spec In Lab Daphen Shahid MD HEMATOLOGY ORDERABLES Performing Organization Address City/State/ZIP Code Phon e Number [address] POCT Glucose (07/06/2017 11:02 AM EST) athologist Signature POC Glucose 187 65 - 199 [place] ZHAORYAN mg/dL [facility] Comment: Supplemental ranges: <140 mg/dL before meals <180 mg/dL all other times of the day Specimen Anatomical Collection Method Collection Time Receive d Time (Source) Location / / Volume Laterality Blood specimen 07/06/2017 11:02 7 (specimen) AM EST 11:02 AM EST Daphne Shahid MD POINT OF CARE TEST ORDERABLE S Performing Organization Address City/State/[place] [address] POCT Glucose (07/06/2017 10:18 AM EST) athologist Signature POC Glucose 193 65 - 199 [place] ZHAORYAN mg/dL [facility] Comment: Supplemental ranges: <140 mg/dL before meals <180 mg/dL all other times of the day Specimen Anatomical Collection Method Collection Time Receive d Time (Source) Location / / Volume Laterality Blood specimen 07/06/2017 10:18 7 (specimen) AM EST 10:18 AM EST Daphne Shahid MD POINT OF CARE TEST ORDERABLE S Performing Organization Address City/State/[place] [address] POCT Glucose (07/06/2017 9:25 AM EST) athologist Signature POC Glucose 182 65 - 199 [place] ZHAORYAN mg/dL [facility] Comment: Supplemental ranges: <140 mg/dL before meals <180 mg/dL all other times of the day Specimen Anatomical Collection Method Collection Time Receive d Time (Source) Location / / Volume Laterality Blood specimen 07/06/2017 9:25 AM 017 9:25 (specimen) EST AM EST Daphne Shahid MD POINT OF CARE TEST ORDERABLE S Performing Organization Address City/State/[place] [address] (ABNORMAL) Cardiac Enzymes (LEB/CGP) (07/06/2017 8:10 AM EST) athologist Signature Troponin-T 2.26 (H) 0.00 [facility] ng/mL [facility] Comment: The 99th percentile [...] additional sample may be indicated. Reference: Third [place] Definition of Myocardial Infarction. Journal of the [place] College [employer]iology 2012;60:1581-98 CK, Total 124 0 - 200 unit/L [facility] Specimen Anatomical Collection Method Collection Time Receive d Time (Source) Location / / Volume Laterality Blood specimen 07/06/2017 8:10 AM 017 8:23 (specimen) EST AM EST Resulting Agency Comment Spec In Lab Daphne Shahid MD CHEMISTRY ORDERABLES Performing Organization Address City/State/[place] [address] Magnesium (07/06/2017 8:10 AM EST) athologist Signature Magnesium 0.84 0.69 - 1.07 [facility] mmol/L [facility] Specimen Anatomical Collection Method Collection Time Receive d Time (Source) Location / / Volume Laterality Blood specimen 07/06/2017 8:10 AM 017 8:21 (specimen) EST AM EST Resulting Agency Comment Spec In Lab Daphne Shahid MD CHEMISTRY ORDERABLES Performing Organization Address City/[facility]/[place] [address] (ABNORMAL) Basic Metabolic Panel (non-fasting) (07/06/2017 8:10 AM EST) P athologist Signature Glucose Lvl 199 65 - 199 [facility] mg/dL [facility] [...] [facility] Estimated GFR >60 >=60 [facility] Comment: The reported eGFR should be multiplied b y 1.2 for patients. The MDRD is not an appropriate measure o f renal function for patients with body mass extremes or in patients with acute kidney failure. http://[employer]Cream.HR/DHnkdep http://[employer]Cream.HR/DHMCnkf Specimen Anatomical Collection Method Collection Time Receive d Time (Source) Location / / Volume Laterality Blood specimen 07/06/2017 8:10 AM 017 8:21 (specimen) EST AM EST Resulting Agency Comment Spec In Lab Daphne Shahid MD CHEMISTRY ORDERABLES Performing Organization Address City/State/[place] [address] POCT Glucose (07/06/2017 7:34 AM EST) P athologist Signature POC Glucose 198 65 - 199 [facility] Comment: Supplemental ranges: <140 mg/dL before meals <180 mg/dL all other times of the day Specimen Anatomical Collection Method Collection Time Receive d Time (Source) Location / / Volume Laterality Blood specimen 07/06/2017 7:34 AM 017 7:34 (specimen) EST AM EST Daphne Shahid MD POINT OF CARE TEST ORDERABLE S Performing Organization Address City/State/ZIP Code Phon e Number [address] POCT Glucose (07/06/2017 7:03 AM EST) athologist Signature POC Glucose 181 65 - 199 [facility] Comment: Supplemental ranges: <140 mg/dL before meals <180 mg/dL all other times of the day Specimen Anatomical Collection Method Collection Time Receive d Time (Source) Location / / Volume Laterality Blood specimen 07/06/2017 7:03 AM 017 7:03 (specimen) EST AM EST Daphne Shahid MD POINT OF CARE TEST ORDERABLE S Performing Organization Address City/State/[place] [address] XR Chest PA or [...] Glucose 172 65 - 199 [facility] mg/dL [facility] Comment: Supplemental ranges: <140 mg/dL before meals <180 mg/dL all other times of the day Specimen Anatomical Collection Method Collection Time Receive d Time (Source) Location / / Volume Laterality Blood specimen 07/06/2017 6:21 AM 017 6:21 (specimen) EST AM EST Daphne Shahid MD POINT OF CARE TEST ORDERABLE S Performing Organization Address City/State/[place] [address] POCT Glucose (07/06/2017 5:08 AM EST) athologist Signature POC Glucose 154 65 - 199 [facility] mg/dL [facility] Comment: Supplemental ranges: <140 mg/dL before meals <180 mg/dL all other times of the day Specimen Anatomical Collection Method Collection Time Receive d Time (Source) Location / / Volume Laterality Blood specimen 07/06/2017 5:08 AM 017 5:08 (specimen) EST AM EST Daphne Shahid MD POINT OF CARE TEST ORDERABLE S Performing Organization Address City/State/ZIP Code Phon e Number [address] POCT Glucose (07/06/2017 4:05 AM EST) athologist Signature POC Glucose 142 65 - 199 [facility] Comment: Supplemental ranges: <140 mg/dL before meals <180 mg/dL all other times of the day Specimen Anatomical Collection Method Collection Time Receive d Time (Source) Location / / Volume Laterality Blood specimen 07/06/2017 4:05 AM 017 4:05 (specimen) EST AM EST Daphne Shahid MD POINT OF CARE TEST ORDERABLE S Performing Organization Address City/State/ZIP Code Phon e Number [address] POCT Glucose (07/06/2017 3:00 AM EST) athologist Signature POC Glucose 116 65 - 199 [facility]/dL [facility] Comment: Supplemental ranges: <140 mg/dL before meals <180 mg/dL all other times of the day Specimen Anatomical Collection Method Collection Time Receive d Time (Source) Location / / Volume Laterality Blood specimen 07/06/2017 3:00 AM 017 3:00 (specimen) EST AM EST Daphne Shahid MD POINT OF CARE TEST ORDERABLE S Performing Organization Address City/State/ZIP Code Phon e Number [address] Potassium (07/06/2017 2:20 AM EST) athologist Signature Potassium 3.9 3.5 - 5.0 [facility] mmol/L [facility] Comment: Please note: ??Patients [...] City/State/[place] [address] Differential, Automated (07/06/2017 2:20 AM EST) athologist Signature Neutrophils % 72.9 % [facility] Neutr Abs (ANC) 5.53 1.70 - [facility] 6.10 [facility] x10(3)/[facility] LABORATORY Lymphocytes % 16.4 % [facility] Lymphocytes Abs 1.2 0.9 - 3.2 [facility] x10(3)/[facility] LABORATORY Monocytes % 9.4 % [facility] Monocyte Abs 0.7 0.3 - 0.9 [facility] x10(3)/[facility] LABORATORY Eosinophils % 0.5 % [facility] Eosinophils Abs 0.0 0.0 - 0.4 [facility] x10(3)/[facility] LABORATORY Basophils % 0.4 % [facility] Basophils Abs 0.0 0.0 - 0.1 [facility] x10(3)/[facility] LABORATORY Immature Gran % 0.40 % [facility] Comment: Immature granulocytes(IG's)percentage an d absolute count will include metamyelocytes, myelocytes, and promyelo cytes. Blood smears from CBCs yielding IG's will be scanned manually for concor dance. If this scan disagrees with the automated IG or if promyelocytes are not ed, a manual differential will be performed. Melisa Gran Abs 0.03 0.00 - 0.04 x10(3)/[facility] LABORATORY Specimen Anatomical Collection Method Collection Time Receive d Time (Source) Location / / Volume Laterality Blood specimen 07/06/2017 2:20 AM 017 2:33 (specimen) EST AM EST Resulting Agency Comment Spec In Lab Daphne Shahid MD HEMATOLOGY ORDERABLES Performing Organization Address City/[facility]/[place] [address] (ABNORMAL) Hemogram (07/06/2017 2:20 AM EST) Analysis Performed At Patho logist Time Signature WBC 7.6 4.0 - 9.5 [facility] [facility] x10(3)/[facility] LABORATORY RBC 4.52 (L) 4.58 - [place] RYAN 5.54 [facility] x10(6)/[facility] LABORATORY Hemoglobin 13.4 (L) 13.7 - [facility] 16.[facility] gm/dL [facility] LABORATORY Hematocrit 39.7 (L) 40.5 - [facility] 48.5 % [facility] LABORATORY MCV 87.8 82.9 - [facility] RYAN 93.1 [facility] LABORATORY MCH 29.6 27.5 - [place] RYAN 32.1 pg [facility] LABORATORY MCHC 33.8 32.0 - [facility] RYAN 35.7 gm/dL [facility] LABORATORY Platelets 189 145 - 357 [facility] x10(3)/[facility] LABORATORY RDWSD 45.6 (H) 36.0 - [facility] 45.0 [facility] LABORATORY RDWCV 14.3 (H) 11.4 - [facility] RYAN 13.8 % [facility] LABORATORY MPV 9.1 7.6 - 12.9 [facility] nRBC % Auto 0.0 % [facility] LABORATORY nRBC Abs Auto 0.000 0.000 - [place] RYAN 0.000 [facility] x10(3)/[facility] LABORATORY Specimen Anatomical Collection Method Collection Time Receive d Time (Source) Location / / Volume Laterality Blood specimen 07/06/2017 2:20 AM 017 2:33 (specimen) EST AM EST Resulting Agency Comment Spec In Lab Daphne Shahid MD HEMATOLOGY ORDERABLES Performing Organization Address City/State/ZIP Code [place] [address] (ABNORMAL) APTT (07/06/2017 2:20 [...] Shahid MD HEMATOLOGY ORDERABLES Performing Organization Address City/[facility]/[place] [address] POCT Glucose (07/06/2017 2:20 AM EST) athologist Signature POC Glucose 115 65 - 199 [facility] mg/dL [facility] LABORATORY Comment: Supplemental ranges: <140 mg/dL before meals <180 mg/dL all other times of the day Specimen Anatomical Collection Method Collection Time Receive d Time (Source) Location / / Volume Laterality Blood specimen 07/06/2017 2:20 AM 017 2:20 (specimen) EST AM EST Daphne Shahid MD POINT OF CARE TEST ORDERABLE S Performing Organization Address City/State/[place] [address] (ABNORMAL) Cardiac Enzymes (LEB/CGP) (07/06/2017 2:20 AM EST) athologist Signature Troponin-T 2.13 (H) 0.00 - [facility] 0.00 ng/mL [facility] LABORATORY Comment: The 99th percentile [...] additional sample may be indicated. Reference: Third [place] Definition of Myocardial Infarction. Journal of the [place] College of Cardiology 2012;60:1581-98 CK, Total 129 0 - 200 unit/L [facility] LABORATORY Specimen Anatomical Collection Method Collection Time Receive d Time (Source) Location / / Volume Laterality Blood specimen 07/06/2017 2:20 AM 017 2:33 (specimen) EST AM EST Resulting Agency Comment Spec In Lab Daphne Shahid MD CHEMISTRY ORDERABLES Performing Organization Address City/State/ZIP Code Phon e Number [place] [id number]OSPITAL LAB[address]ORY Drive (ABNORMAL) Hemoglobin A1c (07/06/2017 [...] [id number] Est Avg Gluc See note mg/dL PROCTOR [...] Additional resources are available on [facility] ADA website. Macario HAMMOND, Ruthann J, Deysi R, et al. ??Tr anslating the A1C assay into estimated average glucose values. ??Diabetes Care 2008:31(8):0859-1302. Specimen Anatomical Collection Method Collection Time Receive d Time (Source) Location / / Volume Laterality Blood specimen 07/06/2017 2:20 AM 017 2:34 (specimen) EST AM EST Resulting Agency Comment Spec In Lab Daphne Shahid MD CHEMISTRY ORDERABLES Performing Organization Address City/State/[place] [address] (ABNORMAL) Lipid Panel (07/06/2017 2:20 AM EST) [facility] Method Time Signature Chol, Total 150 <=239 [place] mg/dL [facility] LABORATORY Triglycerides 129 <=199 [place] mg/dL [facility] LABORATORY HDL 32 (L) >=40 [place] mg/dL [facility] LABORATORY LDL Cholesterol 92 <=190 [place] mg/dL [facility] LABORATORY Chol/HDL Ratio 4.7 ratio [place] [facility] LABORATORY Lipid See Note [place] Hernandes [facility] LABORATORY Comment: Lipid management should be guided by a p atient? s ASCVD risk, goals and preferences. ACC/AHA Guidelines recommend high intens ity statin if clinical ASCVD or LDL greater than or equal to 190 mg/dL. http://[employer] Screen [employer].com/CHF-LBM-Ddajnmprz Adults aged 40-75 with LDL 70-189 mg/dL should have their 10 year ASCVD risk estimated with the ACC/AHA ASCVD risk es timator http://tools.acc.org/PDRPQ-Pndz-Fsvbdsuq r/ Statin should be discussed if risk [...] Organization Address City/State/[place] [address] POCT Glucose (07/06/2017 1:09 AM EST) P athologist Signature POC Glucose 121 65 - 199 [facility] mg/dL [facility] LABORATORY Comment: Supplemental ranges: <140 mg/dL before meals <180 mg/dL all other times of the day Specimen Anatomical Collection Method Collection Time Receive d Time (Source) Location / / Volume Laterality Blood specimen 07/06/2017 1:09 AM 017 1:09 (specimen) EST AM EST Daphne Shahid MD POINT OF CARE TEST ORDERABLE S Performing Organization Address City/State/[place] [address] POCT Glucose (07/06/2017 12:06 AM EST) athologist Signature POC Glucose 147 65 - 199 [facility] RYAN mg/dL [facility] LABORATORY Comment: Supplemental ranges: <140 mg/dL before meals <180 mg/dL all other times of the day Specimen Anatomical Collection Method Collection Time Receive d Time (Source) Location / / Volume Laterality Blood specimen 07/06/2017 12:06 7 (specimen) AM EST 12:06 AM EST Daphne Shahid MD POINT OF CARE TEST ORDERABLE S Performing Organization Address City/State/[place] [address] (ABNORMAL) POCT Glucose (07/05/2017 10:56 PM EST) athologist Signature POC Glucose 200 (H) 65 - 199 [facility] mg/dL [facility] LABORATORY Comment: Supplemental ranges: <140 mg/dL before meals <180 mg/dL all other times of the day Specimen Anatomical Collection Method Collection Time Receive d Time (Source) Location / / Volume Laterality Blood specimen 07/05/2017 10:56 7 (specimen) PM EST 10:56 PM EST Daphne Shahid MD POINT OF CARE TEST ORDERABLE S Performing Organization Address City/State/[place] [address] (ABNORMAL) POCT Glucose (07/05/2017 10:05 PM EST) athologist Signature POC Glucose 225 (H) 65 - 199 [place] RYAN mg/dL [facility] LABORATORY Comment: Supplemental ranges: <140 mg/dL before meals <180 mg/dL all other times of the day Specimen Anatomical Collection Method Collection Time Receive d Time (Source) Location / / Volume Laterality Blood specimen 07/05/2017 10:05 7 (specimen) PM EST 10:05 PM EST Daphne Shahid MD POINT OF CARE TEST ORDERABLE S Performing Organization Address City/State/[place] [address] (ABNORMAL) POCT Glucose (07/05/2017 9:02 PM EST) P athologist Signature POC Glucose 301 (H) 65 - 199 [place] DAVIS mg/dL [facility] LABORATORY Comment: Supplemental ranges: <140 mg/dL before meals <180 mg/dL all other times of the day Specimen Anatomical Collection Method Collection Time Receive d Time (Source) Location / / Volume Laterality Blood specimen 07/05/2017 9:02 PM 017 9:02 (specimen) EST PM EST Daphne Shahid MD POINT OF CARE TEST ORDERABLE S Performing Organization Address City/State/[place] [address] XR Chest PA or [...] 474 ms MUSE SYSTEM (Bezet) Calculated P [place] 50 degrees MUSE SYSTEM Calculated R [place] -28 degrees MUSE SYSTEM Calculated T [place] 90 degrees MUSE SYSTEM INTERPRETATION Sinus tachycardia MUSE SY STEM Cannot rule out Anteroseptal infarct (cited on or before Jun-2017) T wave abnormality, consider lateral ischemia Abnormal ECG When compared with ECG of 05-JUL-2017 16:32, No significant change was found Confirmed by MD LAIAN, CALVIN ([id number]) on 07/06/2017 8:44:58 AM Specimen [...] (ANC) 9.08 (H) 1.70 - [facility] 6.10 [facility] x10(3)/[facility] L LABORATORY Lymphocytes % 7.0 % [facility] LABORATORY Lymphocytes Abs 0.7 (L) 0.9 - 3.2 [facility] x10(3)/[facility] LABORATORY Monocytes % 3.7 % [facility] LABORATORY Monocyte Abs 0.4 0.3 - 0.9 [facility] x10(3)/[facility] LABORATORY Eosinophils % 0.1 % [facility] LABORATORY Eosinophils Abs 0.0 0.0 - 0.4 [facility] x10(3)/[facility] LABORATORY Basophils % 0.2 % [facility] LABORATORY Basophils Abs 0.0 0.0 - 0.1 [facility] x10(3)/[facility] LABORATORY Immature Gran % 0.60 % [...] Gran Abs 0.06 (H) 0.00 - 0.04 x10(3)/[facility] LABORATORY Specimen Anatomical Collection Method Collection Time Receive d Time (Source) Location / / Volume Laterality Blood specimen 07/05/2017 8:20 PM 017 8:27 (specimen) EST PM EST Resulting Agency Comment Spec In Lab Daphne Shahid MD HEMATOLOGY ORDERABLES Performing Organization Address City/State/[place] [address] (ABNORMAL) Hemogram (07/05/2017 8:20 PM EST) Analysis Performed At Patho logist Time Signature WBC 10.3 (H) 4.0 - 9.5 [facility] x10(3)/[facility] LABORATORY RBC 4.64 4.58 - [place] RYAN 5.54 [facility] x10(6)/[facility] LABORATORY Hemoglobin 14.1 13.7 - [facility] RYAN 16.5 gm/dL [facility] LABORATORY Hematocrit 40.8 40.5 - [place] RYAN 48.5 % [facility] LABORATORY MCV 87.9 82.9 - [facility] RYAN 93.1 fL [facility] LABORATORY MCH 30.4 27.5 - [place] RYAN 32.1 pg [facility] LABORATORY MCHC 34.6 32.0 - [place] RYAN 35.7 gm/dL [facility] LABORATORY Platelets 204 145 - 357 [facility] x10(3)/[facility] LABORATORY RDWSD 46.1 (H) 36.0 - [place] RYAN 45.0 [facility] LABORATORY RDWCV 14.5 (H) 11.4 - [facility] 13.8 % [facility] LABORATORY MPV 9.7 7.6 - 12.9 [facility] LABORATORY nRBC % Auto 0.0 % [facility] LABORATORY nRBC Abs Auto 0.000 0.000 - [place] ZHAORYAN 0.000 [facility] x10(3)/[facility] LABORATORY Specimen Anatomical Collection Method Collection Time Receive d Time (Source) Location / / Volume Laterality Blood specimen 07/05/2017 8:20 PM 017 8:27 (specimen) EST PM EST Resulting Agency Comment Spec In Lab Daphne Shahid MD HEMATOLOGY ORDERABLES Performing Organization Address City/[facility]/ZIP Code Phon e Number [address] APTT (07/05/2017 8:20 PM [...] Shahid MD HEMATOLOGY ORDERABLES Performing Organization Address City/[facility]/ZIP [facility] [place] [address] (ABNORMAL) Cardiac Enzymes (LEB/CGP) (07/05/2017 8:20 PM EST) athologist Signature Troponin-T 2.11 (H) 0.00 - [facility] 0.00 ng/mL [facility] LABORATORY Comment: The 99th percentile [...] additional sample may be indicated. Reference: Third [place] Definition of Myocardial Infarction. Journal of the [place] College of Cardiology 2012;60:1581-98 CK, Total 149 0 - 200 unit/L [facility] LABORATORY Specimen Anatomical Collection Method Collection Time Receive d Time (Source) Location / / Volume Laterality Blood specimen 07/05/2017 8:20 PM 017 8:27 (specimen) EST PM EST Resulting Agency Comment Spec In Lab Daphne Shahid MD CHEMISTRY ORDERABLES Performing Organization Address City/[facility]/[place] [address] (ABNORMAL) Magnesium (07/05/2017 8:20 PM EST) P athologist Signature Magnesium 0.68 (L) 0.69 - 1.07 [facility] mmol/L [facility] LABORATORY Specimen Anatomical Collection Method Collection Time Receive d Time (Source) Location / / Volume Laterality Blood specimen 07/05/2017 8:20 PM 017 8:27 (specimen) EST PM EST Resulting Agency Comment Spec In Lab Daphne Shahid MD CHEMISTRY ORDERABLES Performing Organization Address City/State/[place] [address] (ABNORMAL) Basic Metabolic Panel (non-fasting) (07/05/2017 8:20 PM EST) athologist Signature Glucose Lvl 321 (H) 65 - 199 [facility] mg/dL [facility] LABORATORY [...] [facility] LAB[facility] Estimated GFR >60 >=60 [facility] LABORATORY Comment: The reported eGFR should be multiplied b y 1.2 for patients. The MDRD is not an appropriate measure o f renal function for patients with body mass extremes or in patients with acute kidney failure. http://[employer] Games.Cream.HR/DHnkdep http://Gateway EDI/DHMCnkf Specimen Anatomical Collection Method Collection Time Receive d Time (Source) Location / / Volume Laterality Blood specimen 07/05/2017 8:20 PM 017 8:27 (specimen) EST PM EST Resulting Agency Comment Spec In Lab Daphne Shahid MD CHEMISTRY ORDERABLES Performing Organization Address City/State/[place] [address] (ABNORMAL) POCT Glucose (07/05/2017 7:32 PM EST) athologist Signature POC Glucose 296 (H) 65 - 199 [facility] mg/dL [facility] LABORATORY Comment: Supplemental ranges: <140 mg/dL before meals <180 mg/dL all other times of the day Specimen Anatomical Collection Method Collection Time Receive d Time (Source) Location / / Volume Laterality Blood specimen 07/05/2017 7:32 PM 017 7:32 (specimen) EST PM EST Daphne Shahid MD POINT OF CARE TEST ORDERABLE S Performing Organization Address City/State/[place] [address] CARDIAC CATHETERIZATION (07/05/2017 6:47 PM EST) Anatomical Region Laterality Modality Other Specimen (Source) Anatomical Location Collection Method / Collectio n Time Received Time / Laterality Volume Narrative 07/05/2017 7:27 PM EST ?[facility] ? Cardiac Cathete rization/Intervention Report ? Patient Name: Natalya, Gregory ? Procedure Date: 07/05/2017 ? A #: [id number] ? Primary Physician: Clarisa, Jet Sampson ? Case #: [id number] ? File Name: [id number] ? Catheterization Order Number: [id number] ? [facility] ? Final Report [place], [place] ? Patient Name: ? Gregory Natalya ?ID#: ?[id number] ? : ?1945 ? Procedure Date: ? Johnny 11, 20 17 ?Case #: ? [id number] ? Room: ? 6 ? Case Physician: ? Jet Mckenna MMadihaD. ?Start: ?18:06 ? Admission: ??07/05/2017 ? [...] presented with: non -STEMI (w/i 7 days). [place] ?[employer]iovascular Society angina c lass was IV. [...] site angio graphy and IABP insertion in mobile lab technician. ? Jet Mckenna, M.D. ? Electronically Signed by: Jet Sampson DeVlatrice s, M.D. ? Report Finalized: 07/05/2017 ??19:23 ? Report Last Ammended: 10/26/2017 ??10:29 ? Procedure Note Jet Mckenna MD - 10/26/2017Formatt ing of this note might be different from the original. [facility] Cardiac Catheterization/Intervention Re port Patient Name: Gregory Hoang Procedure Date: 07/05/2017 A #: [id number] Primary Physician: Jet Mckenna Case #: [id number] File Name: [id number] Catheterization Order Number: [id number] [facility] Final Report [place], [place] Patient Name: Gregory Hoang ID#: [id number] 3- : 1945 Procedure Date: July 05, [...] presented with: non-STEMI ( w/i 7 days). [place] [employer] angina class was IV. No [...] the descending thoracic aorta under fluoroscopy guidrenato ce. There was good diastolic augmentation and systolic unloading. Successful IABP placement. The attending physician was present for the entire procedure. Dr. Jet Mckenna M.D. was present d uring the moderate sedation intraservice time as documented by the sedation nurse. Case time = 00:42. Dr. Jet Mckenna M.D. performed the coronary angiography, left heart catheterization, access site angiograph y and IABP insertion in mobile lab technician. Jet Mckenna M.D. Electronically Signed [...] Mccollum ? (Age): 1945(72y) Med Rec#: ? [id number] ?Sex: ?M ? Site Loc: ? [facility] ?Ht / Wt: ??173(cm)/86(kg) Pt. Loc: ?[facility] ? BSA: ?2 Study Date: ?? 07/05/2017 ?Pt. Type: Inpatient Tape: ? Referring: Daphne Shahid ([id number]) Referring: MANDA ALCANTAR Reading: Blade Preston ([id number]) Hip Hop Artist: Dayami Paula BA, [facility] Diagnosis: *ICD-10-PCS Non-ST elevation (NSTEMI) [...] E-wave Vmax ?0.8 ?m/sec ? MV deceleration [id number] ?msec ? MV A-wave Vmax ?0.8 ?m/sec [...] ? Mid-Inferior ?Akinetic ? Mid-Inferoseptal ?Hypokinetic ? [place]-Septal ? Akinetic ? [place]-Anterior ? Hypokinetic ? [place]-Lateral ?Hypokinetic ? [place]-Inferior ? Akinetic ? [place]-Tip ?Akinetic ? This report has been electronically sign ed by: _ Blade Preston MD ? 07/06/2017 08 :53:15 Images reviewed and interpretation verif ied [facility] Cardiac Ultrasound Laboratory Procedure Note Blade Preston MD - 07/06/2017Formatt ing of this note might be different from the original. Procedure: Transthoracic Echocardiogram Patient: NATALYA MCBRIDE(Age): [birth year]72y) Med Rec#: [id number] Sex: M [place] [facility] [place]t / Wt: 173(cm)/86(kg) Pt. Loc: U BSA: 2 Study Date: 07/05/2017 Pt. Type: Inpatie nt Tape: Referring: Daphne Shahid ([id number]) Referring: MANDA ALCANTAR Reading: Blade Preston ([id number]) Hip Hop Artist: Dayami Paula BA, [facility] Diagnosis: *ICD-10-PCS Non-ST elevation (NSTEMI) [...] MV E-wave Vmax 0.8 m/sec MV deceleration [id number] msec MV A-wave Vmax 0.8 m/sec MV [...] Hypokinetic Mid-Posterolateral Hypokinetic Mid-Inferior Akinetic Mid-Inferoseptal Hypokinetic [place]-Septal Akinetic [place]-Anterior Hypokinetic [place]-Lateral Hypokinetic [place]-Inferior Akinetic [place]-Tip Akinetic This report has been electronically sign ed by: _ Blade Preston MD 07/06/2017 08:53:15 Images reviewed and interpretation verif ied [facility] Cardiac Ultrasound Laboratory Daphne Shahid MD ECHO ORDERABLES Differential, Automated (07/05/2017 4:55 PM EST) athologist Signature Neutrophils % 77.0 % [facility] LABORATORY Neutr Abs (ANC) 5.26 1.70 - [facility] 6.10 [facility] x10(3)[facility] LABORATORY Lymphocytes % 13.3 % [facility] Lymphocytes Abs 0.9 0.9 - 3.2 [facility] x10(3)/[facility] LABORATORY Monocytes % 8.2 % [facility] Monocyte Abs 0.6 0.3 - 0.9 [facility] x10(3)/[facility] LABORATORY Eosinophils % 0.7 % [facility] Eosinophils Abs 0.0 0.0 - 0.4 [facility] x10(3)/[facility] LABORATORY Basophils % 0.4 % [facility] Basophils Abs 0.0 0.0 - 0.1 [facility] x10(3)/[facility] LABORATORY Immature Gran % 0.40 % [facility] LABORATORY Comment: Immature granulocytes(IG's)percentage an d absolute count will include metamyelocytes, myelocytes, and promyelo cytes. Blood smears from CBCs yielding IG's will be scanned manually for concor dance. If this scan disagrees with the automated IG or if promyelocytes are not ed, a manual differential will be performed. Melisa Gran Abs 0.03 0.00 - 0.04 x10(3)/[facility] Y [facility] LABORATORY Specimen Anatomical Collection Method Collection Time Receive d Time (Source) Location / / Volume Laterality Blood specimen 07/05/2017 4:55 PM 017 5:24 (specimen) EST PM EST Resulting Agency Comment Spec In Lab Daphne Shahid MD HEMATOLOGY ORDERABLES Performing Organization Address City/State/[place] [address] (ABNORMAL) Hemogram (07/05/2017 4:55 PM EST) Analysis Performed At Patho logist Time Signature WBC 6.8 4.0 - 9.5 [facility] LABORATORY RBC 4.67 4.58 - [place] RYAN 5.54 [facility] x10(6)/[facility] LABORATORY Hemoglobin 14.0 13.7 - [facility] 16.[facility] gm/dL [facility] LABORATORY Hematocrit 41.0 40.5 - [facility] 48.5 % [facility] LABORATORY MCV 87.8 82.9 - [facility] RYAN 93.1 [facility] LABORATORY MCH 30.0 27.5 - [place] RYAN 32.1 pg [facility] LABORATORY MCHC 34.1 32.0 - [facility] RYAN 35.7 gm/dL [facility] LABORATORY Platelets 197 145 - 357 [facility] x10(3)/[facility] LABORATORY RDWSD 46.4 (H) 36.0 - [facility] RYAN 45.0 [facility] LABORATORY RDWCV 14.5 (H) 11.4 - [facility] RYAN 13.8 % [facility] LABORATORY MPV 9.7 7.6 - 12.9 [facility] nRBC % Auto 0.0 % [facility] LABORATORY nRBC Abs Auto 0.000 0.000 - [facility] RYAN 0.000 [facility] x10(3)/[facility] LABORATORY Specimen Anatomical Collection Method Collection Time Receive d Time (Source) Location / / Volume Laterality Blood specimen 07/05/2017 4:55 PM 017 5:24 (specimen) EST PM EST Resulting Agency Comment Spec In Lab Daphne Shahid MD HEMATOLOGY ORDERABLES Performing Organization Address City/State/ZIP Code Phon e Number [facility] [place] [place] [address] (ABNORMAL) Cardiac Enzymes (LEB/CGP) (07/05/2017 4:55 PM EST) athologist Signature Troponin-T 1.69 (H) 0.00 - [place] DAVIS 0.00 ng/mL [facility] LABORATORY Comment: The 99th percentile [...] additional sample may be indicated. Reference: Third [place] Definition of Myocardial Infarction. Journal of the [place] College of Cardiology 2012;60:1581-98 CK, Total 191 0 - 200 unit/L [facility] LABORATORY Specimen Anatomical Collection Method Collection Time Receive d Time (Source) Location / / Volume Laterality Blood specimen 07/05/2017 4:55 PM 017 5:56 (specimen) EST PM EST Resulting Agency Comment Spec In Lab Daphne Shahid MD CHEMISTRY ORDERABLES Performing Organization Address City/State/[place] [address] (ABNORMAL) pro-Brain Natriuretic Peptide (07/05/2017 4:55 PM EST) athologist Signature ProBNP 1,598 (H) <=125 [facility] pg/mL [facility] LABORATORY Specimen Anatomical Collection Method Collection Time Receive d Time (Source) Location / / Volume Laterality Blood specimen 07/05/2017 4:55 PM 017 5:24 (specimen) EST PM EST Resulting Agency Comment Spec In Lab Daphne Shahid MD CHEMISTRY ORDERABLES Performing Organization Address City/State/ZIP Code Phon e Number [address] Magnesium (07/05/2017 4:55 PM EST) P athologist Signature Magnesium 0.78 0.69 - 1.07 [facility] mmol/L [facility] LABORATORY Specimen Anatomical Collection Method Collection Time Receive d Time (Source) Location / / Volume Laterality Blood specimen 07/05/2017 4:55 PM 017 5:24 (specimen) EST PM EST Resulting Agency Comment Spec In Lab Daphne Shahid MD CHEMISTRY ORDERABLES Performing Organization Address City/[facility]/ZIP Code Phon e Number [address] (ABNORMAL) Basic Metabolic Panel (non-fasting) (07/05/2017 4:55 PM EST) P athologist Signature Glucose Lvl 230 (H) 65 - 199 [facility] mg/dL [facility] LABORATORY [...] Anion Gap 14 5 - 15 mmol/L [facility] LAB[facility]ORY Calcium 8.5 8.5 - 10.5 mg/dL [facility] Linnea [facility] Estimated GFR >60 >=60 KATALINA RYAN [facility] Comment: The reported eGFR should be multiplied b y 1.2 for patients. The MDRD is not an appropriate measure o f renal function for patients with body mass extremes or in patients with acute kidney failure. http://[facility] EDI/nkdep http://[facility] EDI/[facility]ON[facility] Specimen Anatomical Collection Method Collection Time Receive d Time (Source) Location / / Volume Laterality Blood specimen 07/05/2017 4:55 PM 017 5:24 (specimen) EST PM EST Resulting Agency Comment Spec In Lab Daphne Shahid MD CHEMISTRY ORDERABLES Performing Organization Address City/[facility] [place] [address] (ABNORMAL) APTT (07/05/2017 4:55 [...] Shahid MD HEMATOLOGY ORDERABLES Performing Organization Address City/[facility]/ZIP [facility] [place] [address] (ABNORMAL) POCT Glucose (07/05/2017 4:53 PM EST) P athologist Signature POC Glucose 208 (H) 65 - 199 [facility] mg/dL [facility] Comment: Supplemental ranges: <140 mg/dL before meals <180 mg/dL all other times of the day Specimen Anatomical Collection Method Collection Time Receive d Time (Source) Location / / Volume Laterality Blood specimen 07/05/2017 4:53 PM 017 4:53 (specimen) EST PM EST Daphne Shahid MD POINT OF CARE TEST ORDERABLE S Performing Organization Address City/State/[place] [address] EKG 12 Lead (07/05/2017 4:32 PM EST) Component Value Ref Range Test Analysis Performed Pathologis t Method Time At Signature Ventricular rate 97 BPM MUSE SYSTEM Atrial Rate 97 BPM MUSE SYSTEM P-R Interval 148 ms MUSE SYSTEM QRS Duration 96 ms MUSE SYSTEM Q-T Interval 364 ms MUSE SYSTEM QTC Calculated 462 ms MUSE SYSTEM (Bezet) Calculated P Carmel 48 degrees MUSE SYSTEM Calculated R Carmel -33 degrees MUSE SYSTEM Calculated T Carmel 98 degrees MUSE SYSTEM INTERPRETATION Normal sinus [...] Coronary atherosclerosis of unspecified type of vessel, sioux or graft Cardiomyopathy, ischemic Other specified [...] in dextrose 5% 250 mL EST infusion (CARTOGRAPHIC DESIGNER) CONTINUOUS PRN, Starting on Wed07/05/17 at 1837, [...] Rangel, VAMSI)0155 (Stopped - Provider: Ale Rangel, RN)0901 (New Bag - Provider: Em Jones, VAMSI)0931 (Stopped - Provider: Em Jones, VAMSI)1738 (New Bag - Provider: Em Jones, VAMSI) 0143 (New Bag - Provider: Denice Jacobson, RN)0213 (Stopped - Provider: Denice Jacobson, VAMSI)0932 (New [...] met) 0800 (Not Given - Provider: Em M Tr uell, RN - Reason: Order parameters not met)1307 [...] Jones, VAMSI) 0922 (Given - Provider: Myrna Young RN) [...] 2019 (Given - Provider: Ale Rangel RN) 2099 (Not Given - Provider: Denice contreras [...] 2200 (Given - Provider: Ale Rangel RN) 2129 (No t Given - Provider: Denice [...] (COMPLETED) 1611 (Give n - Provider: More Luther, VAMSI) 5 mg, Oral, ONCE, 1 dose, On [...] mg 0544 (Given - Provider: Carmen Berry, RN) 1,000 mg, Oral, EVERY 6 [...]
Routine documented in this encounter Care Teams Skin Care Technician Relationship Specialty Start Date End Date Lovely Vicente MD PCP - General 04/16/[address] [place] [address] documented as of this encounter
--- OUTSIDE RECORDS SUMMARY | 2022-03-27 09:28 | XMS_ITS | Encounter Summary ---
:1945 Author Organization [facility] [place] [address] Care Team Providers Name Role Phone Lovely Vicente MD Primary Care Provider Reason for Visit Reason Comments Nevus excision dysplastic nevus mi d upper abdomen Encounter Details Date Type Department Care Team Description 12/03/2016 Procedure visit Dermatology at Halima [facility]ois Dysplastic nevus of Road MD Adrián trunk [address] [facility] [address] [facility] [phone] [address]-DERMATOLGY [place] [address] Social History Tobacco Use Types Packs/Day Years [...] Halima Cordero MD during the day at [phone] Nurse: Mira [phone] Amy After 5 PM and on weekends, please call the hospital number , and ask for the Cold Reduction Roller national park tour guide. documented in this encounter Progress Notes Halima Cordero MD - 12/10/2016 5:41 PM EDT Gwendolyn, Excision shows scar, there is no residual of the severely dysplastic nevus. Please notify patient and check on wound healing. Thank you, DTB Halima Cordero MD - 12/03/2016 3:00 PM EDT Images from the original note were not included. Dermatology Procedure note: Attending: Halima Cordero MD Bott[facility] House Quality Control Technician: Mira James LPN Referring MD: Rigoberto Garcia [...] to call the clinic or the on-call cp bleacher operator over the weekend. ??? Name of [...] Cardiology Zulma Dolan MD [facility] [place], [place] [address] (Wo rk) 05/28/2022 Laboratory Appointment Lab 05/28/2022 Office Visit Cardiology Zulma Dolan [place] [address] Liz Poole PA [facility] [place] [address] 06/10/2022 Office Visit Dermatology Laura Scherer MD [facility] DR TE[address] GR-DERMAT [place], [place] [address] (Wo rk) documented as of [...] Component Value Ref Test Analysis Performed At [facility] Method Time Signature Surgical [id number] ?Location: [facility] The signing pathologist has (i) examined the [...] Clinical Diagnosis: Dysplastic nevus, see previous pathology [id number] SPECIMEN PROCESSING A - Labeled/Fixative: Mid-upper abdomen, [...] Address City/State/[place] [address] Specimen to Pathology (NON-OR) [...] Address City/State/[place] [address] documented in this encounter Visit Diagnoses Diagnosis Dysplastic nevus of trunk Benign neoplasm of skin of trunk, except scrotum documented in this encounter Care Teams Sheep Shearer Relationship Specialty Start Date End Date Lovely Vicente MD PCP - General 04/16/[address] [place] [address] documented as of this encounter
--- OUTSIDE RECORDS SUMMARY | 2022-03-27 09:28 | XMS_ITS | Encounter Summary ---
:1945 Author Organization [place] [address] Care Team Providers Name Role Phone Lovely Vicente MD Primary Care Provider Reason for Visit Reason Comments Skin Lesion Encounter Details Date Type Department Care Team Description 11/24/2016 [facility] uncertain behavior of skin; Road IIIMD Pigmented skin lesion of uncertain natur e; [address] [facility] [place] of [place] [address] [facility] SIMÓN-DERMATOLGY [place], [place] [address] Social History Tobacco Use Types [...] or concerns, please call the office at [phone]. If it is after 5PM, or a holiday or weekend, please call [phone] and ask for the Electrical Controls Assembler on-call. documented in this encounter Progress Notes [...] 71 y.o. year old male.Established patient of [employer]. Last seen 06/05/16. Here today for new [...] 05/28/2022 Appointment Cardiology Zulma Dolan MD [facility] er [place] [address] (Wo rk) 05/28/2022 Laboratory Appointment Lab 05/28/2022 Office Visit Cardiology Zulma Dolan MD [facility] [place] [address] Liz Poole PA [facility] [place] [address] 06/10/2022 Office Visit Dermatology Laura Scherer MD [facility] ER DR [address]-DERMAT [place], [place] [address] (Wo rk) documented as [...] Hospital gist Range Method Time Signature Surgical [id number] ?Location: [facility] Report The [...] Organization Address City/State/[place] [address] Specimen to Pathology (NON-OR) (11/24/2016 8:28 AM EDT) Specimen Anatomical Collection Method Collection Time Receive d Time (Source) Location / / Volume Laterality AP Specimen 11/24/2016 8:28 AM 7 9:29 EDT AM EDT Narrative [facility]Y - 11/24/2016 9:29 AM EDT Specimen requisition ordered. ??Separate Pathology report to follow Resulting Agency Comment Spec In Lab Rigoberto Garcia III, MD PATHOLOGY/CYTOLOGY ORDERABLE S Performing Organization Address City/State/[place] [address] documented in this encounter Visit Diagnoses Diagnosis Neoplasm of uncertain behavior of skin Pigmented skin lesion of uncertain natur e History of melanoma Personal history of malignant melanoma o f skin documented in this encounter Care Teams Puffer Tender Relationship Specialty Start Date End Date Lovely Vicente MD PCP - General 04/16/[address] [place] [address] documented as of this encounter
--- OUTSIDE RECORDS SUMMARY | 2022-03-27 09:28 | XMS_ITS | Encounter Summary ---
:1945 Author Organization [facility] [place] [address] Care Team Providers Name Role Phone Lovely Vicente MD Primary Care Provider Encounter Details Date Type Department Care Team Description 07/05/2017 Telephone Cardiology Kim Galindo MD [facility] [place] [address] CARDIOLOGY DEPT [phone] [place], [place] [address] (Wo rk) Social History [...] 1:54pm Referring Provider: Ivania CROWELL) Patient Location: [facility] Presenting Symptoms per OSH: 72 [...] infarct and elevated troponin, transport patient to [facility] for cath this afternoon and arrhythmia monitoring. Kim Galindo MD Brass Sorter documented in this encounter Plan of Treatment Upcoming Encounters Date Type Specialty Care Team Description 05/28/2022 Appointment Cardiology Zulma Dolan MD [facility] [address] [place], [place] [address] (Wo rk) 05/28/2022 Laboratory Appointment Lab 05/28/2022 Office Visit Cardiology Zulma Dolan MD [facility] [place] [address] Liz Poole PA [facility] [place] [address] 06/10/2022 Office Visit Dermatology Laura Scherer MD [facility] DR TE[address] GR-DERMAT [place], [place] [address] (Wo rk) documented as of this encounter Visit Diagnoses Not on filedocumented in this encounter Care Teams Clinical Geneticist Relationship Specialty Start Date End Date Lovely Vicente MD PCP - General 04/16/[address] [place] [address] documented as of this encounter
--- OUTSIDE RECORDS SUMMARY | 2022-03-27 09:28 | XMS_ITS | Encounter Summary ---
:1945 [place] [address] Care Team Providers Name Role Phone Lovely Vicente MD Primary Care Provider Reason for Visit Reason Onset Date Comments Other 12/09/2016 RESULTS Encounter Details Date Type Department Care Team Description 12/09/2016 Telephone Dermatology at [facility] Halima Cadet MD Other (RESULTS) [address] [place] [address] [facility]-DERMATOLGY [phone] [place], [place] [address] (Wo rk) Social History [...] EDT Spoke with patient's , Kisha (personal distribution sales representative). I advised her Don's pathology [...] back. She can be reached back at [phone] documented in this encounter Plan of Treatment Upcoming Encounters Date Type Specialty Care Team Description 05/28/2022 Appointment Cardiology Zulma Dolan MD [facility] [address] [place], [place] [address] (Wo rk) 05/28/2022 Laboratory Appointment Lab 05/28/2022 Office Visit Cardiology Zulma Dolan MD [facility] [place] [address] Liz Poole PA [facility] [place] [address] 06/10/2022 Office Visit Dermatology Laura Scherer MD [facility] DR [address]-DERMAT [place], [place] [address] (Wo rk) documented as of this encounter Visit Diagnoses Not on filedocumented in this encounter Care Teams Rolling Mill Operator Relationship Specialty Start Date End Date Lovely Vicente MD PCP - General 04/16/[address] [place] [address] documented as of this encounter
--- OUTSIDE RECORDS SUMMARY | 2022-03-27 09:28 | XMS_ITS | Encounter Summary ---
:1945 Author Organization [facility] [place] [address] Care Team Providers Name Role Phone Lovely Vicente MD Primary Care Provider Reason for Visit Reason Onset Date Comments Medication Refill 12/24/2016 Encounter Details Date Type Department Care Team Description 12/24/2016 Refill Endocrinology at [facility] Luz Stallings MD [facility] [place] [address] ENDOCRINOLOGY DEPT [phone] [place], [place] [address] (Wo rk) Social History [...] Zulma Dolan MD [facility] er [address] [place] [address] (Wo rk) 05/28/2022 Laboratory Appointment Lab 05/28/2022 Office Visit Cardiology Zulma Dolan MD [facility] [place] [address] Liz Poole PA [facility] [place] [address] 06/10/2022 Office Visit Dermatology Laura Scherer MD [facility] DR TEJA GR-DERMAT [place], [place] [address] (Wo rk) documented as of this encounter Visit Diagnoses Not on filedocumented in this encounter Care Teams Chief Passenger Ship Steward/Stewardess Relationship Specialty Start Date End Date Lovely Vicente MD PCP - General 04/16/[address] [place], [place] [address] documented as of this encounter
--- OUTSIDE RECORDS SUMMARY | 2022-03-27 09:28 | XMS_ITS | Encounter Summary ---
:1945 Author Organization [facility] [place] [address] Care Team Providers Name Role Phone Lovely Vicente MD Primary Care Provider Encounter Details Date Type Department Care Team Description 09/03/2016 Laboratory Appointment Lab at [facility] Hx of [facility] [place] [address] Social History Tobacco Use Types Packs/Day Years [...] Zulma Dolan MD [facility] [place] [address] [place] [address] (Wo rk) 05/28/2022 Laboratory Appointment Lab 05/28/2022 Office Visit Cardiology Zulma Dolan MD [facility] [place] [address] Liz Poole PA [facility] [place] [address] 06/10/2022 Office Visit Dermatology Laura Scherer MD [facility] ER DR TEJA GR-DERMAT [place], [...] encounter Results Thyroglobulin (09/03/2016 11:07 AM EST) athologist Signature Thyroglobulin <0.4 <=54.9 [facility] ng/mL [facility] Comment: Interpret with caution. Tg levels [...] than those obtained with T4 withdrawal protocol ([place] BR et al. J Clin Endo Metab 1999;84:6937-3947). Assay performed using the DPC Immulite T [...] Address City/State/ZIP Code Phon e Number [address] TSH (09/03/2016 11:07 AM EST) P athologist Signature TSH 3.01 0.27 - 4.20 [facility] mcIU/mL [facility] Specimen Anatomical Collection Method Collection Time Receive d Time (Source) Location / / Volume Laterality Blood specimen 09/03/2016 11:07 7 (specimen) AM EST 11:22 AM EST Resulting Agency Comment Spec In Lab Luz Prescott MD CHEMISTRY ORDERABLES Performing Organization Address City/[facility]/ZIP [facility] [place] [address] documented in this encounter Visit Diagnoses Diagnosis Hx of papillary thyroid carcinoma Personal history of malignant neoplasm o f thyroid documented in this encounter Care Teams Public Affairs Manager Relationship Specialty Start Date End Date Lovely Vicente MD PCP - General 04/16/[address] [place] [address] documented as of this encounter
--- OUTSIDE RECORDS SUMMARY | 2022-03-27 09:29 | XMS_ITS | Encounter Summary ---
:1945 Author Organization [place] [address] Care Team Providers Name Role Phone Lovely Vicente MD Primary Care Provider Reason for Visit Reason Onset Date Comments Medication Refill 06/19/2016 Encounter Details Date Type Department Care Team Description 06/19/2016 Refill Endocrinology at [facility] Luz Stallings MD [facility] [place] [address] ENDOCRINOLOGY DEPT [phone] [place], [place] [address] (Wo rk) Social History [...] Zulma Dolan MD [facility] er [address] [place] [address] (Wo rk) 05/28/2022 Laboratory Appointment Lab 05/28/2022 Office Visit Cardiology Zulma Dolan [place] [address] Liz Poole PA [facility] [place] [address] 06/10/2022 Office Visit Dermatology Laura Scherer MD [facility] DR TE[address] GR-DERMAT [place], [place] [address] (Wo rk) documented as of this encounter Visit Diagnoses Not on filedocumented in this encounter Care Teams Supervisor Paper Products Relationship Specialty Start Date End Date Lovely Vicente MD PCP - General 04/16/[address] [place], [place] [address] documented as of this encounter
--- OUTSIDE RECORDS SUMMARY | 2022-03-27 09:29 | XMS_ITS | Encounter Summary ---
:1945 Author Organization [facility] [place] [address] Care Team Providers Name Role Phone MiyaAngela STACIE Primary Care Provider Reason for Visit Reason Comments Urinary Retention Encounter Details Date Type Department Care Team Description 05/16/2013 Follow-Up Urology at [facility] Blade Smith, Retention of urine [facility] (Primary [place]x) [place] [address] UROLOGY DEPT [place] [id number] (Wo rk) Social History Tobacco Use Types [...] Dolan MD [facility] [place], [place] [address] (Wo rk) 05/28/2022 Laboratory Appointment Lab 05/28/2022 Office Visit Cardiology Zulma Dolan MD [facility] [place] [address] Liz Poole PA [facility] [place] [address] 06/10/2022 Office Visit Dermatology Laura Scherer MD [facility] DR TE[address] GR-DERMAT [place], [place] [address] (Wo rk) documented as of this encounter Visit Diagnoses Diagnosis 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
--- OUTSIDE RECORDS SUMMARY | 2022-03-27 09:29 | XMS_ITS | Encounter Summary ---
:1945 Author Organization [facility] [place] [address] Care Team Providers Name Role Phone Miya Angela STACIE Primary Care Provider Encounter Details Date Type Department Care Team Description 04/24/2013 Telephone Urology at [facility] Zhen Bowman [place] [address] UROLOGY DEPT [phone] [place], [place] [address] (Wo rk) Social History Tobacco [...] Description 05/28/2022 Appointment Cardiology Zulma Dolan MD [facility] [place], [place] [address] (Wo rk) 05/28/2022 Laboratory Appointment Lab 05/28/2022 Office Visit Cardiology Zulma Dolan MD [place] [address] Liz Poole PA [facility] [place] [address] 06/10/2022 Office Visit Dermatology Laura Scherer MD [facility] DR [address] GR-DERMAT [place], [place] [address] (Wo rk) documented as of this encounter Visit Diagnoses Not on filedocumented in this encounter Care Teams Law Enforcement Officer Relationship Specialty Start Date End Date Angela Holliday APRN PCP - General 01/25/13 04/15/[address] [place] [place] [address] documented as of this encounter
--- OUTSIDE RECORDS SUMMARY | 2022-03-27 09:29 | XMS_ITS | Encounter Summary ---
:1945 Author Organization [facility] Address [facility] [place] [address] Care Team Providers Name Role Phone Lovely Vicente MD Primary Care Provider Reason for Visit Reason Comments Skin Check Encounter Details Date Type Department Care Team Description 11/05/2015 Office Visit Dermatology at Rig[facility]to Forman benign nevi; Abdelrahman HOOPER MD Lentigines; [address] [facility] History of melanoma; [place] [address] Skin exam for malignant neoplasm [phone] [facility]-DERMATOLGY [place], [place] [address] Social History Tobacco Use Types [...] the presence of Dr. Garcia.: [address] PACKER OPERATOR and Judit Cruz, Clinical Scribe I performed the above scribed service and agree with the accuracy of the documentation in this encounter. Rigoberto Garcia MD Section of Dermatology [facility] documented in this encounter Plan of Treatment Upcoming Encounters Date Type Specialty Care Team Description 05/28/2022 Appointment Cardiology Zulma Dolan MD [facility] [address] [place], [place] [address] (Wo rk) 05/28/2022 Laboratory Appointment Lab 05/28/2022 Office Visit Cardiology Zulma Dolan MD [facility] [place] [address] Liz Poole PA [facility] [place] [address] 06/10/2022 Office Visit Dermatology Laura Scherer MD [facility] DR TE[address] GR-DERMAT [place], [place] [address] (Wo rk) documented as of this encounter Visit Diagnoses Diagnosis Multiple benign nevi Benign neoplasm of skin, site unspecifie d Lentigines Other dyschromia History of melanoma Personal history of malignant melanoma o f skin Skin exam for malignant neoplasm Screening for malignant neoplasm of the skin documented in this encounter Care Teams Firer Automatic Stoker Relationship Specialty Start Date End Date Lovely Vicente MD PCP - General 04/16/[address] [facility] [address] [place] [address] (work) documented as of this encounter
--- OUTSIDE RECORDS SUMMARY | 2022-03-27 09:29 | XMS_ITS | Encounter Summary ---
:1945 Author Organization [facility] [place] [address] Care Team Providers Name Role Phone MiyaAngela STACIE Primary Care Provider Reason for Visit Reason Onset Date Comments Advice Only 03/31/2013 Encounter Details Date Type Department Care Team Description 03/31/2013 Telephone Urology at [facility] Daniele Trejo III, MD Advice Only One [facility] [place] [address] [place] [id number] [phone] (Wo rk) Social History Tobacco Use Types [...] Cardiology Zulma Dolan MD [facility] [place], [place] [address] (Wo rk) 05/28/2022 Laboratory Appointment Lab 05/28/2022 Office Visit Cardiology Zulma Dolan MD [facility] [place] [address] Liz Poole PA [facility] [place] [address] 06/10/2022 Office Visit Dermatology Laura Scherer MD [facility] [address] TE[address] GR-DERMAT [place], [place] [address] (Wo rk) documented as of this encounter Visit Diagnoses Not on filedocumented in this encounter Care Teams Burlesque Dancer Relationship Specialty Start Date End Date Angela Holliday APRN PCP - General 01/25/13 04/15/[address] [place] [address] documented as of this encounter
--- OUTSIDE RECORDS SUMMARY | 2022-03-27 09:29 | XMS_ITS | Encounter Summary ---
:1945 Author Organization [facility] [place] [address] Care Team Providers Name Role Phone MiyaLokeshAngela STACIE Primary Care Provider Reason for Visit Reason Onset Date Comments Post-op Problem 04/05/2013 voiding trial Encounter Details Date Type Department Care Team Description 04/05/[address] [facility] Blade Smith, Post-op Problem [facility] (voiding trial) [place] [address] UROLOGY DEPT [place] [address] (Wo rk) Social History Tobacco Use Types [...] Dolan MD [facility] [place], [place] [address] (Wo rk) 05/28/2022 Laboratory Appointment Lab 05/28/2022 Office Visit Cardiology Zulma Dolan MD [facility] [place] [address] Liz Poole PA [facility] [place] [address] 06/10/2022 Office Visit Dermatology Laura Scherer MD [facility] [address] TE[address]DERMAT [place], [place] [address] (Wo rk) documented as of this encounter Visit Diagnoses Not on filedocumented in this encounter Care Teams Personnel Generalist Manager Relationship Specialty Start Date End Date Angela Holliday APRN PCP - General 01/25/13 04/15/[address] [place] [address] documented as of this encounter
--- OUTSIDE RECORDS SUMMARY | 2022-03-27 09:29 | XMS_ITS | Encounter Summary ---
:1945 Author Organization [facility] [address] Care Team Providers Name Role Phone Angela Holliday APRN Primary Care Provider Encounter Details Date Type Department Care Team Description 03/15/2013 Telephone General Surgery at [facility] [place]ison Key, [place] [address] Social History Tobacco Use Types Packs/Day [...] Description 05/28/2022 Appointment Cardiology Zulma Dolan MD [facility] [place], [place] [address] (Wo rk) 05/28/2022 Laboratory Appointment Lab 05/28/2022 Office Visit Cardiology Zulma Dolan MD [facility] [place] [address] Liz Poole PA [facility] [place] [address] 06/10/2022 Office Visit Dermatology Laura Scherer MD [facility] [address] TEJA [address]DERMAT [place], [place] [address] (Wo rk) documented as of this encounter Visit Diagnoses Not on filedocumented in this encounter Care Teams Help Desk Internship Relationship Specialty Start Date End Date Angela Holliday APRN PCP - General 01/25/13 04/15/[address] [place] [address] documented as of this encounter
--- OUTSIDE RECORDS SUMMARY | 2022-03-27 09:29 | XMS_ITS | Encounter Summary ---
:1945 Author Organization [place] [address] Care Team Providers Name Role Phone Lovely Vicente MD Primary Care Provider Reason for Visit Reason Comments Skin Check Encounter Details Date Type Department Care Team Description 04/16/2015 Follow-Up Dermatology at [facility] x of melanoma of skin; Abdelrahman HOOPER MD Multiple benign nevi [address] [place] [address] [facility] [place], [place] [address] (Wo rk) Social History Tobacco [...] Diagnostic, Drum (ACCU-CHEK COMPACT TEST) Strip by [facility].(Non- Drug; Combo Route) route 2 [...] Zulma Dolan MD [facility] [place], [place] [address] (Wo rk) 05/28/2022 Laboratory Appointment Lab 05/28/2022 Office Visit Cardiology Zulma Dolan MD [facility] [place] [address] Liz Poole PA [facility] [place] [address] 06/10/2022 Office Visit Dermatology Laura Scherer MD [facility] [address] TE[address]DERMAT [place], [place] [address] (Wo rk) documented as of this encounter Visit Diagnoses Diagnosis Hx of melanoma of skin Personal history of malignant melanoma o f skin Multiple benign nevi Benign neoplasm of skin, site unspecifie d documented in this encounter Care Teams Director Of Family Service Center Relationship Specialty Start Date End Date Lovely Vicente MD PCP - General 04/16/[address] [place] [address] [address] [place] [address] documented as of this encounter
--- OUTSIDE RECORDS SUMMARY | 2022-03-27 09:29 | XMS_ITS | Encounter Summary ---
:1945 Author Organization [facility] [place] [address] Care Team Providers Name Role Phone Angela Holliday APRN Primary Care Provider Reason for Visit Reason Comments Skin Check Encounter Details Date Type Department Care Team Description 07/31/2013 Follow-Up Dermatology at [facility] eoplasm of unspecified nature of bone, soft tissue, and skin (Primary Dx); Abdelrahman HOOPER MD Seborrheic psoriasis- scalp and ingtergl uteal area; [address] [facility] Atypical [place] [address] [facility] [place], [place] [address] (Wo rk) Social History [...] encounter. Rigoberto Albarran MD Section of Dermatology [facility] documented in this encounter Plan of Treatment Upcoming Encounters Date Type Specialty Care Team Description 05/28/2022 Appointment Cardiology Zulma Dolan MD [facility] [address] [place] [address] (Wo lissa) 05/28/2022 Laboratory Appointment Lab 05/28/2022 Office Visit Cardiology Zulma Dolan MD [facility] [place] [address] Liz Poole PA [facility] [place] [address] 06/10/2022 Office Visit Dermatology Laura Scherer MD [facility] DR TE[address] GR[address]DERMAT [place], [place] [address] (Wo rk) Scheduled Orders Name [...] Component Value Ref Test Analysis Performed At [facility] gist Range Method Time Signature Surgical CERNER Pathology ? [facility] Report ? Provider: ?? RIGOBERTO ALBARRAN III Pt. Name: ?? GREGORY HOANG ?A ? Acc #: ?[id number] ? Pt. ? Col Date: ?? 07/31/2013 [...] negative controls. ??These ? IHC studies provide [facility] pathologist with adjunctive diagnostic information. ? [...] 0.9 x 0.8 x 0.2 cm. ? [facility] ? Provider: ?? DEION III, RIGOBERTO Pt. Name: ?? GREGORY HOANG ?A ? Acc #: ?[id number] ? Pt. ? Col Date: ?? 07/31/2013 [...] MD PATHOLOGY/CYTOLOGY ORDERABLE S Performing Organization Address City/[facility]/ZIP Code Phon e Number [address] CERNER MILLENNIUM Specimen to Pathology (NON-OR) (07/31/2013 8:09 AM EST) Specimen Anatomical Collection Method Collection Time Receive d Time (Source) Location / / Volume Laterality AP Specimen 07/31/2013 8:09 AM 201 4 8:09 EST AM EST Narrative CERNER MILLENNIUM - 07/31/2013 8:[address] Specimen requisition ordered. ??Separate Pathology report to follow Rigoberto Albarran III, MD PATHOLOGY/CYTOLOGY ORDERABLE S Performing Organization Address City/[facility]/[place] [address] CERNER MILLENNIUM documented in this encounter Visit Diagnoses Diagnosis Neoplasm of unspecified nature of bone, soft tissue, and skin - Primary Seborrheic psoriasis- scalp and ingtergl uteal area Other psoriasis Atypical nevus of abdominal wall Benign neoplasm of skin of trunk, except scrotum documented in this encounter Care Teams Rod And Tube Straightener Relationship Specialty Start Date End Date Angela Holliday APRN PCP - General 01/25/13 04/15/[address] [place] [address] documented as of this encounter
--- OUTSIDE RECORDS SUMMARY | 2022-03-27 09:29 | XMS_ITS | Encounter Summary ---
:1945 Author Organization [place] [address] Care Team Providers Name Role Phone Lovely Vicente MD Primary Care Provider Reason for Visit Reason Comments Thyroid Cancer Encounter Details Date Type Department Care Team Description 06/05/2015 Office Visit Endocrinology at [facility] Albertina Prescott, History of papillary [facility] MD Luz adenocarcinoma of [facility] thyroid (Primary Dx) [place] [address] CENTER [phone] [place] [address] Social History Tobacco Use Types Packs/Day Years [...] the thyroid gland were obtained using a [employer] ultrasound machine. All measurements are given as AP x Transverse x Longitudinal Right Lobe: Absent Left Lobe: Absent Isthmus: Absent Central/Lateral neck: no morphologically abnormal lymph nodes. Impression: No sonographic evidence of recurrence. LUZ PRESCOTT MD Pelt Shearercontrol operator Section of Endocrinology [facility] Luz Prescott MD - 06/05/2015 8:21 AM [...] --f/u in 1 year LUZ PRESCOTT MD Pelt Shearercontrol operator Section of Endocrinology [facility] documented in this encounter Miscellaneous Notes Addendum [...] [facility] [address] [place], [place] [address] (Wo rk) 05/28/2022 Laboratory Appointment Lab 05/28/2022 Office Visit Cardiology Zulma Dolan MD [facility] [place] [address] Liz Poole PA [facility] [place] [address] 06/10/2022 Office Visit Dermatology Laura Scherer MD [facility] ER [address]-DERMAT [place], [place] [address] (Wo rk) documented as of [...] athologist Signature Thyroglobulin 0.6 <=54.9 CERNER ng/mL [facility] Comment: Interpret with caution. Tg levels may [...] BR et al. J Clin Endo Metab 1999;84:6469-5509). Assay performed using the [employer] Immulite T [...] Organization Address City/State/[place] [address] CERNER MILLENNIUM (ABNORMAL) TSH (06/05/2015 9:04 AM EST) P athologist Signature TSH 5.88 (H) 0.27 - 4.20 CERNER mcIU/mL MILLENNIUM Specimen Anatomical Collection Method Collection Time Receive d Time (Source) Location / / Volume Laterality Blood specimen 06/05/2015 9:04 AM 015 9:15 (specimen) EST AM EST Resulting Agency Comment Spec In Lab Luz Prescott MD CHEMISTRY ORDERABLES Performing Organization Address City/[facility]/[place] [address] CERNER MILLENNIUM documented in this encounter Visit Diagnoses Diagnosis 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
--- OUTSIDE RECORDS SUMMARY | 2022-03-27 09:29 | XMS_ITS | Encounter Summary ---
:1945 Author Organization [facility] [place] [address] Care Team Providers Name Role Phone MiyaAngela STACIE Primary Care Provider Reason for Visit Reason Comments Post Op voiding trial Encounter Details Date Type Department Care Team Description 04/05/2013 Office Visit Urology at [facility] Darryl Egan, UTI ([facility] MD tract infection) [facility] (Primary Dx) [place] [address] UROLOGY DEPT [phone] [place], [place] [address] Social History Tobacco Use Types [...] Cardiology Zulma Dolan MD [facility] [place], [place] [address] (Wo rk) 05/28/2022 Laboratory Appointment Lab 05/28/2022 Office Visit Cardiology Zulma Dolan [place] [address] Liz Poole PA [facility] [place] [address] 06/10/2022 Office Visit Dermatology Laura Scherer MD [facility] [address]DERMAT [place], [place] [address] (Wo rk) documented as of [...] GREGORY HOANG ? Ordered By: DARRYL EGAN [facility] ? MR#: [id number] ?LOC: ??5B ? /Sex: ??1945 (68 years), [...] S ? Patient: GREGORY HOANG ? MR#: [id number] ? FOOTNOTES ? (1) ? This organism [...] City/State/[place] [address] RAKESH WALKER documented in this encounter Visit Diagnoses Diagnosis UTI (lower urinary tract infection) - Pr imary Urinary tract infection, site not specif ied documented in this encounter Care Teams Sheet Metal Operator Relationship Specialty Start Date End Date Angela Holliday APRN PCP - General 01/25/13 04/15/[address] [place] [address] documented as of this encounter
--- OUTSIDE RECORDS SUMMARY | 2022-03-27 09:29 | XMS_ITS | Encounter Summary ---
:1945 Author Organization [place] [address] Care Team Providers Name Role Phone Angela Holliday APRN Primary Care Provider Reason for Visit Reason Onset Date Comments Other 03/30/2013 blood in catheter ba g Encounter Details Date Type Department Care Team Description 03/30/2013 Telephone General Surgery at [facility] Janneth Sharma, Other (blood in [facility] RN catheter bag) [place] [address] Social History Tobacco Use Types Packs/Day [...] Description 05/28/2022 Appointment Cardiology Zulma Dolan MD [facility] [place], [place] [address] (Wo rk) 05/28/2022 Laboratory Appointment Lab 05/28/2022 Office Visit Cardiology Zulma Dolan MD [facility] [place] [address] Liz Poole PA [facility] [place] [address] 06/10/2022 Office Visit Dermatology Laura Scherer MD [facility] DR TE[address] GR-DERMAT [place], [place] [address] (Wo rk) documented as of this encounter Visit Diagnoses Not on filedocumented in this encounter Care Teams Acoustical Engineer Relationship Specialty Start Date End Date Angela Holliday APRN PCP - General 01/25/13 04/15/[address] [place] [address] documented as of this encounter
--- OUTSIDE RECORDS SUMMARY | 2022-03-27 09:29 | XMS_ITS | Encounter Summary ---
:1945 Author Organization [facility] [place] [address] Care Team Providers Name Role Phone Angela Holliday APRN Primary Care Provider Reason for Visit Reason Comments Benign Prostatic Hypertrophy Encounter Details Date Type Department Care Team Description 11/28/2013 Follow-Up Urology at [facility] Blade Smith, Urinary retention (Primary D x); [facility] BPH (benign prostatic hyperplasia) [place] [address] UROLOGY DEPT [place], [place] [address] (Wo rk) Social History Tobacco [...] [facility] [address] [place], [place] [address] (Wo rk) 05/28/2022 Laboratory Appointment Lab 05/28/2022 Office Visit Cardiology Zulma Dolan MD [facility] [place] [address] Liz Poole PA [facility] [place] [address] 06/10/2022 Office Visit Dermatology Laura Scherer MD [facility] [address]DERMAT [place], [place] [address] (Wo rk) documented as of [...] City/State/[place] [address] CERNER MILLENNIUM documented in this encounter Visit Diagnoses Diagnosis Urinary retention - Primary Retention of urine, unspecified BPH (benign prostatic hyperplasia) Unspecified hyperplasia of prostate with out urinary obstruction and other lower urinary tract symptoms (LUTS) documented in this encounter Care Teams Flexo Press Operator Relationship Specialty Start Date End Date Angela Holliday APRN PCP - General 01/25/13 04/15/[address] [place] [address] documented as of this encounter
--- OUTSIDE RECORDS SUMMARY | 2022-03-27 09:29 | XMS_ITS | Encounter Summary ---
:1945 Author Organization [facility] [address] Care Team Providers Name Role Phone Angela Holliday APRN Primary Care Provider Reason for Visit Reason Comments Other Encounter Details Date Type Department Care Team Description 08/01/2013 Telephone Dermatology at [facility] Rigoberto Garcia III, [address] [place] [address] [facility] [phone] TEJA MARIE-DERMAT [place], [place] [address] (Wo rk) Social History Tobacco [...] them. Component Value Surgical Pathology Final Report [facility] Provider: RIGOBERTO GARCIA III Pt. Name: DON HOANG Acc #: [id number] Pt. Col Date: 07/31/2013 /Sex: 1945,(68 years),Male Rec Date: 07/31/2013 LOC: [facility] SURGICAL PATHOLOGY ---Pathologic Diagnosis--- Skin, right abdomen, shave biopsy: Lentiginous compound nevus with moderate atypia of the intraepidermal component, extending to the peripheral specimen edge, ulcerated, associated with spongiosis and superficial perivascular lymphoeosinophilic infiltrate (see Comment). CR-0 08/01/13 BJM 08/01/13 Verified by: Ian STRANGE, PhD, [facility] Dermatopathologist (Electronic Signature) The attending pathologist whose [...] Zulma Dolan MD [facility] [place], [place] [address] (Wo lissa) 05/28/2022 Laboratory Appointment Lab 05/28/2022 Office Visit Cardiology Zulma Dolan MD [facility] [place] [address] Liz Poole PA [facility] [place] [address] 06/10/2022 Office Visit Dermatology Laura Scherer MD [facility] DR TEJA MARIE-DERMAT [place], [place] [address] (Wo rk) documented as of this encounter Visit Diagnoses Not on filedocumented in this encounter Care Teams Cat Dog Or Other Pet Groomer Relationship Specialty Start Date End Date Angela Holliday APRN PCP - General 01/25/13 04/15/[address] [place] [address] documented as of this encounter
--- OUTSIDE RECORDS SUMMARY | 2022-03-27 09:29 | XMS_ITS | Encounter Summary ---
:1945 Author Organization [facility] [place] [address] Care Team Providers Name Role Phone Som Holliday APRN Primary Care Provider Encounter Details Date Type Department Care Team Description 04/11/2014 Procedure visit Gastroenterology at [facility] Esophageal reflux [facility] Luz Winchester RN (Primary Dx) [place] [address] Social History Tobacco Use Types Packs/Day Years Used Date Former Smoker Alcohol Use Standard Drinks/Week Comments No 0 (1 standard drink = 0.6 oz pure alcoho l) Sex Assigned at Date Recorded Not on file documented as of this encounter Progress Notes Adalid Can MD - 04/13/2014 3:43 PM EDT ESOPHAGEAL MANOMETRY Don Fatima Male, 69 yrs, 1945 PCP: SOM HOLLIDAY DAY PORTER: NONE STUDY DATE: 04/11/14 PROVIDER: Adal[place] ([id number]) INDICATION Reflux; preoperative evaluation. METHODS Stationary esophageal manometry was performed with the MetaIntell esophageal motility system utilizing the Polygram software [...] of the esophagus. Adalid Can, PhD, MD restorative art embalmer, [facility] [employer] Section of Gastroenterology and Hepatology [facility] [place] [address] V: [phone] F: [phone] BANNER/gabriela CC/EC: PCP - staff msg copy 04/13/14 Henrique Taylor MD - fax copy 04/13/14 Luz Keller RN - 04/11/2014 8:14 AM EDT Esophageal manometry performed without difficulty and Was well tolerated. documented in this encounter Plan of Treatment Upcoming Encounters Date Type Specialty Care Team Description 05/28/2022 Appointment Cardiology Zulma Dolan MD [facility] [place], [place] [address] (Wo rk) 05/28/2022 Laboratory Appointment Lab 05/28/2022 Office Visit Cardiology Zulma Dolan MD [facility] [place] [address] Liz Poole PA [facility] [place] [address] 06/10/2022 Office Visit Dermatology Laura Scherer MD [facility] DR TEJA GR-DERMAT [place], [place] [address] (Wo rk) documented as of this encounter Visit Diagnoses Diagnosis Esophageal reflux - Primary documented in this encounter Care Teams Cellars Supervisor Relationship Specialty Start Date End Date Som Holliday APRN PCP - General 01/25/13 04/15/[address] [place] [address] documented as of this encounter
--- OUTSIDE RECORDS SUMMARY | 2022-03-27 09:29 | XMS_ITS | Encounter Summary ---
:1945 Author Organization [facility] [place] [address] Care Team Providers Name Role Phone Angela Holliday STACIE Primary Care Provider Encounter Details Date Type Department Care Team Description 04/04/2013 Telephone Urology at [facility] Parker Sanchez MD [facility] [place] [address] UROLOGY DEPT [phone] [place], [place] [address] (Wo rk) Social History Tobacco [...] Zulma Dolan MD [facility] [address] [place], [place] [address] (Wo rk) 05/28/2022 Laboratory Appointment Lab 05/28/2022 Office Visit Cardiology Zulma Dolan MD [facility] [place] [address] Liz Poole PA [facility] [place] [address] 06/10/2022 Office Visit Dermatology Laura Scherer MD [facility] DR TEJA GR-DERMAT [place], [place] [address] (Wo rk) documented as of this encounter Visit Diagnoses Not on filedocumented in this encounter Care Teams Branch Library Clerk Relationship Specialty Start Date End Date Angela Holliday APRN PCP - General 01/25/13 04/15/[address] [place] [address] documented as of this encounter
--- OUTSIDE RECORDS SUMMARY | 2022-03-27 09:29 | XMS_ITS | Encounter Summary ---
:1945 Author Organization [facility] [place] [address] Care Team Providers Name Role Phone MiyaAngela STACIE Primary Care Provider Encounter Details Date Type Department Care Team Description 04/26/2014 Office Visit Endocrinology at [facility] Albertina Palmer, Papillary thyroid [facility] [place] [address] CENTER [phone] ENDOCRINOLOGY DEPT [place] [address] Social History Tobacco Use Types Packs/Day Years [...] on [place]. Rosalind Palmer Endocrine Staff Physician [facility] Rosalind Palmer MD - 04/26/2014 8:39 AM [...] one yr Rosalind Palmer Endocrine Staff Physician [facility] documented in this encounter Plan of Treatment Upcoming Encounters Date Type Specialty Care Team Description 05/28/2022 Appointment Cardiology Zulma Dolan MD [facility] [address] [place], [place] [address] (Wo rk) 05/28/2022 Laboratory Appointment Lab 05/28/2022 Office Visit Cardiology Zulma Dolan [place] [facility] [place] [address] Liz Poole PA [facility] [place] [address] 06/10/2022 Office Visit Dermatology Laura Scherer MD [facility] DR TEJA GR-DERMAT OLOGY [place], [place] [address] (Wo rk) documented as [...] athologist Signature Thyroglobulin <0.4 <=54.9 CERNER ng/mL [facility] Comment: Interpret with caution. Tg levels [...] BR et al. J Clin Endo Metab 1999;84:0444-3582). Assay performed using the DPC Immulite T [...] Address City/State/ZIP Code Phon e Number [address] CERNER MILLENNIUM (ABNORMAL) TSH (04/26/2014 9:07 AM EDT) P athologist Signature TSH 4.46 (H) 0.27 - 4.20 CERNER mcIU/mL MILLENNIUM Specimen Anatomical Collection Method Collection Time Receive d Time (Source) Location / / Volume Laterality Blood specimen 04/26/2014 9:07 AM 014 9:12 (specimen) EDT AM EDT Resulting Agency Comment Spec In Lab Rosalind Palmer MD CHEMISTRY ORDERABLES Performing Organization Address City/[facility]/ZIP Code Phon e Number [address] CERNER MILLENNIUM documented in this encounter Visit Diagnoses Diagnosis Papillary thyroid carcinoma Malignant neoplasm of thyroid gland documented in this encounter Care Teams Enamel Applier Relationship Specialty Start Date End Date Angela Holliday APRN PCP - General 01/25/13 04/15/[address] [place] [address] documented as of this encounter
--- OUTSIDE RECORDS SUMMARY | 2022-03-27 09:29 | XMS_ITS | Encounter Summary ---
:1945 Author Organization [facility] [address] Care Team Providers Name Role Phone NeilSom conner STACIE Primary Care Provider Reason for Visit Reason Comments Establish Care OBST GOITER Encounter Details Date Type Department Care Team Description 01/25/2013 Office Visit General Surgery at [facility] er colloid, toxic, [facility] MD Eliseo nodular (Primary Dx) [facility] [place] GENERAL SURGERY [id number] [place], [place] [address] [phone] Social History Tobacco Use Types Packs/Day Years [...] the thyroid gland were obtained using a SonoSiBemDireto MicroMaxx and an HFL38/13-6 broadband linear array [...] on physical exam. ROS: No H/O asthma, [place], stroke, pulmonary embolus or phlebitis. Comprehensive review [...] agrees to proceed. Will sign in through [facility]. Consent is signed. Send copy to Dr. SOM HOLLIDAY APRN and Elijah Elias MD. documented in this encounter Plan of Treatment Upcoming Encounters Date Type Specialty Care Team Description 05/28/2022 Appointment Cardiology Zluma Dolan MD [facility] [address] [place] [address] (Wo rk) 05/28/2022 Laboratory Appointment Lab 05/28/2022 Office Visit Cardiology Zulma Dolan MD [facility] [place] [address] Liz Poole PA [facility] [place] [address] 06/10/2022 Office Visit Dermatology Laura Scherer MD [facility] DR TEJA GR-DERMAT OLOGY [place], [place] [address] (Wo rk) documented as [...] 406 ms MUSE SYSTEM (Bezet) Calculated P [place] 52 degrees MUSE SYSTEM Calculated R [place] 0 degrees MUSE SYSTEM Calculated T [place] 40 degrees MUSE SYSTEM INTERPRETATION Normal sinus [...] storm documented in this encounter Care Teams Flag Maker Relationship Specialty Start Date End Date Som Holliday APRN PCP - General 01/25/13 04/15/[address] [place] [address] documented as of this encounter
--- OUTSIDE RECORDS SUMMARY | 2022-03-27 09:29 | XMS_ITS | Encounter Summary ---
:1945 Author Organization [facility] [place] [address] Care Team Providers Name Role Phone Lovely Vicente MD Primary Care Provider Encounter Details Date Type Department Care Team Description 09/03/2016 Office Visit Endocrinology at [facility] Maria Ines Stallings of [facility] MD [place] [address] [place] [address] ENDOCRINOLOGY DEPT [place], [place] [address] Social History Tobacco Use Types [...] to his magnesium pill. LUZ PRESCOTT MD Sorter/Assay Techlower school spanish teacher Section of Endocrinology [facility] Luz Prsecott MD - 09/03/2016 11:30 AM EST THYROID [...] sonographic evidence of recurrence. LUZ PRESCOTT MD Sorter/Assay Techlower school spanish teacher Section of Endocrinology [facility] documented in this encounter Plan of Treatment Upcoming Encounters Date Type Specialty Care Team Description 05/28/2022 Appointment Cardiology Zulma Dolan MD [facility] [place] [address] (Wo rk) 05/28/2022 Laboratory Appointment Lab 05/28/2022 Office Visit Cardiology Zulma Dolan MD [facility] [place] [address] Liz Poole PA [facility] [place] [address] 06/10/2022 Office Visit Dermatology Laura Scherer MD [facility] DR TEJA GR-DERMAT [place], [place] [address] (Wo rk) documented as of this encounter Results Thyroglobulin (09/07/2017 2:41 PM EST) P athologist Signature Thyroglobulin 1.4 <=54.9 KATALINA RYAN ng/mL [facility] LABORATORY Comment: Thyroglobulin levels may [...] not been established. Assay performed using the Pulsar Vascular Immulite T g immunometric assay (lowest detection [...] [facility]/ZIP Code Phon e Number [address] TSH (09/07/2017 2:41 PM EST) athologist Signature TSH 3.93 0.27 - 4.20 [facility] mlU/ML [facility] LABORATORY Specimen Anatomical Collection Method Collection Time Receive d Time (Source) Location / / Volume Laterality Blood specimen 09/07/2017 2:41 PM 018 2:46 (specimen) EST PM EST Resulting Agency Comment Spec In Lab Luz Prescott MD CHEMISTRY ORDERABLES Performing Organization Address City/[facility] Phon e Number [address] Thyroglobulin (09/03/2016 11:07 AM EST) athologist Signature Thyroglobulin <0.4 <=54.9 [facility] ng/mL [facility] Comment: Interpret with caution. [...] than those obtained with T4 withdrawal protocol ([place] BR et al. J Clin Endo Metab 1999;84:4366-2453). Assay performed using the DPC Immulite T [...] [facility]/ZIP Code Phon e Number [address] TSH (09/03/2016 11:07 AM EST) P athologist Signature TSH 3.01 0.27 - 4.20 [facility] mcIU/mL [facility] LABORATORY Specimen Anatomical Collection Method Collection Time Receive d Time (Source) Location / / Volume Laterality Blood specimen 09/03/2016 11:07 7 (specimen) AM EST 11:22 AM EST Resulting Agency Comment Spec In Lab Luz Prescott MD CHEMISTRY ORDERABLES Performing Organization Address City/[facility]/[place] [address] documented in this encounter Visit Diagnoses Diagnosis Hx of papillary thyroid carcinoma Personal history of malignant neoplasm o f thyroid documented in this encounter Care Teams Supervisor Lathing Relationship Specialty Start Date End Date Lvoely Vicente MD PCP - General 04/16/[address] [place] [address] documented as of this encounter
--- OUTSIDE RECORDS SUMMARY | 2022-03-27 09:29 | XMS_ITS | Encounter Summary ---
:1945 Author Organization [facility] [place] [address] Care Team Providers Name Role Phone Angela Holliday APRN Primary Care Provider Encounter Details Date Type Department Care Team Description 03/30/2013 Telephone General Surgery at [facility] Cliff Nevarez, [place] [address] Social History Tobacco Use Types Packs/Day [...] Description 05/28/2022 Appointment Cardiology Zulma Dolan MD [facility] er [place], [place] [address] (Wo rk) 05/28/2022 Laboratory Appointment Lab 05/28/2022 Office Visit Cardiology Zulma Dolan MD [facility] [place] [address] Liz Poole PA [facility] [place] [address] 06/10/2022 Office Visit Dermatology Laura Scherer MD [facility] DR TEJA GR-DERMAT [place], [place] [address] (Wo rk) documented as of this encounter Visit Diagnoses Not on filedocumented in this encounter Care Teams Government Sales Manager Relationship Specialty Start Date End Date Angela Holliday APRN PCP - General 01/25/13 04/15/[address] [place] [address] documented as of this encounter
--- OUTSIDE RECORDS SUMMARY | 2022-03-27 09:29 | XMS_ITS | Encounter Summary ---
:1945 Author Organization [facility] [place] [address] Care Team Providers Name Role Phone Lovely Vicente MD Primary Care Provider Reason for Visit Reason Onset Date Comments Referral 10/30/2015 Urgent referral for mac on SIM[facility]N [place]AVIS Encounter Details Date Type Department Care Team Description 10/30/2015 Telephone Ophthalmology at [facility] C Jayson Ruiz Referral (Urgent [facility] MD Grabiel referral for mac on [facility] DR SIM[address]N CHAVIS) [place] [address] OPHTHALMOLOGY DEPT. [phone] [place], [place] [address] (Wo rk) Social History Tobacco [...] Zulma Dolan MD [facility] [address] [place], [place] [address] (Wo rk) 05/28/2022 Laboratory Appointment Lab 05/28/2022 Office Visit Cardiology Zulma Dolan [place] [address] Liz Poole PA [facility] [place] [address] 06/10/2022 Office Visit Dermatology Laura Scherer MD [facility] DR TEJA GR-DERMAT [place], [place] [address] (Wo rk) documented as of this encounter Visit Diagnoses Not on filedocumented in this encounter Care Teams Ditching Machine Engineer Relationship Specialty Start Date End Date Lovely Vicente MD PCP - General 04/16/[address] [place], [place] [address] documented as of this encounter
--- OUTSIDE RECORDS SUMMARY | 2022-03-27 09:29 | XMS_ITS | Encounter Summary ---
:1945 Author Organization [facility] [place] [address] Care Team Providers Name Role Phone Lovely Vicente MD Primary Care Provider Encounter Details Date Type Department Care Team Description 07/10/2016 Telephone Dermatology at [facility] Rigoberto White III, [address] [place] [address] [facility] [phone] [facility] MARIE-DERMAT [place], [place] [address] (Wo rk) Social History Tobacco [...] [facility] Dr [place], [place] [address] (Wo rk) 05/28/2022 Laboratory Appointment Lab 05/28/2022 Office Visit Cardiology Zulma Dolan MD [facility] [place] [address] Liz Poole PA [facility] [place] [address] 06/10/2022 Office Visit Dermatology Laura Scherer MD [facility] DR TEJA MARIE-DERMAT [place], [place] [address] (Wo rk) documented as of this encounter Visit Diagnoses Not on filedocumented in this encounter Care Teams Plasma Processing Technician Relationship Specialty Start Date End Date Lovely Vicente MD PCP - General 04/16/15 [facility] [address] [place] [address] documented as of this encounter
--- OUTSIDE RECORDS SUMMARY | 2022-03-27 09:29 | XMS_ITS | Encounter Summary ---
:1945 Author Organization [facility] [place] [address] Care Team Providers Name Role Phone Lovely Vicente MD Primary Care Provider Reason for Visit Reason Comments Skin Check Encounter Details Date Type Department Care Team Description 06/05/2016 Office Visit Dermatology at Rigoberto Forman istory of melanoma; Abdelrahman HOOPER MD Seborrheic keratosis; [address] [facility] [place] (actinic keratosis); [place] [address] Multiple nevi; [phone] [facility] [address]-DERMATOLGY [place], [place] [address] Social History Tobacco Use Types [...] of the documentation in this encounter. Rigoberto aGrcia MD Section of Dermatology [facility] documented in this encounter Plan of Treatment Upcoming Encounters Date Type Specialty Care Team Description 05/28/2022 Appointment Cardiology Zulma Dolan MD [facility] [place], [place] [address] (Wo rk) 05/28/2022 Laboratory Appointment Lab 05/28/2022 Office Visit Cardiology Zulma Dolan MD [facility] [place] [address] Liz Poole PA [facility] [place] [address] 06/10/2022 Office Visit Dermatology Laura Scherer MD [facility] DR TEJA GR-DERMAT [place], [place] [address] (Wo rk) documented as of this encounter Visit Diagnoses Diagnosis History of melanoma Personal history of malignant melanoma o f skin Seborrheic keratosis Other seborrheic keratosis [place] (actinic keratosis) Actinic keratosis Multiple nevi Benign neoplasm of skin, site unspecifie d Scar Scar condition and fibrosis of skin documented in this encounter Care Teams Emergency Preparedness Coordinator Relationship Specialty Start Date End Date Lovely Vicente MD PCP - General 04/16/[address] [place] [address] documented as of this encounter
--- OUTSIDE RECORDS SUMMARY | 2022-03-27 09:29 | XMS_ITS | Encounter Summary ---
:1945 Author Organization [facility] [place] [address] Care Team Providers Name Role Phone MiyaAngela STACIE Primary Care Provider Encounter Details Date Type Department Care Team Description 11/27/2013 Orders Only Urology at [facility] Blade Smith, Urinary retention [facility] (Primary Dx) [place] [address] UROLOGY DEPT [place], [place] [address] Social History Tobacco Use Types [...] MD [facility] er [place], [place] [address] (Wo rk) 05/28/2022 Laboratory Appointment Lab 05/28/2022 Office Visit Cardiology Zulma Dolan MD [facility] [place] [address] Liz Poole PA [facility] [place] [address] 06/10/2022 Office Visit Dermatology Laura Scherer MD [facility] ER DR TEJA GR-DERMAT OLOGY [place], [place] [address] (Wo rk) documented as of [...] City/State/[place] [address] CERNER MILLENNIUM documented in this encounter Visit Diagnoses Diagnosis Urinary retention - Primary Retention of urine, unspecified documented in this encounter Care Teams Clerk Rating Relationship Specialty Start Date End Date Angela Holliday APRN PCP - General 01/25/13 04/15/[address] [place] [address] documented as of this encounter
--- OUTSIDE RECORDS SUMMARY | 2022-03-27 09:29 | XMS_ITS | Encounter Summary ---
:1945 Author Organization [facility] [place] [address] Care Team Providers Name Role Phone MiyaLokeshAngela STACIE Primary Care Provider Encounter Details Date Type Department Care Team Description 04/04/2013 Orders Only General Surgery at [facility] thyroid [facility] MD Eliseo carcinoma (Primary Dx) [facility] [place] [address] GENERAL SURGERY [phone] [place], [place] [address] Social History Tobacco Use Types Packs/Day Years Used Date Former Smoker Alcohol Use Standard Drinks/Week Comments No 0 (1 standard drink = 0.6 oz pure alcoho l) Sex Assigned at Date Recorded Not on file documented as of this encounter Plan of Treatment Upcoming Encounters Date Type Specialty Care Team Description 05/28/2022 Appointment Cardiology Zulma Dolan MD [facility] er [address] [place], [place] [address] (Wo rk) 05/28/2022 Laboratory Appointment Lab 05/28/2022 Office Visit Cardiology Zulma Dolan MD [facility] [place] [address] Liz Poole PA [facility] [place] [address] 06/10/2022 Office Visit Dermatology Laura Scherer MD [facility] DR TEJA GR-DERMAT [place], [place] [address] (Wo rk) documented as of this encounter Visit Diagnoses Diagnosis Papillary thyroid carcinoma - Primary Malignant neoplasm of thyroid gland documented in this encounter Care Teams Cooling Pipe Inspector Relationship Specialty Start Date End Date Angela Holilday APRN PCP - General 01/25/13 04/15/[address] [place] [address] documented as of this encounter
--- OUTSIDE RECORDS SUMMARY | 2022-03-27 09:29 | XMS_ITS | Encounter Summary ---
:1945 Author Organization [facility] [place] [address] Care Team Providers Name Role Phone MiyaLokeshAngela STACIE Primary Care Provider Encounter Details Date Type Department Care Team Description 01/16/2014 Hospital Encounter G[facility]ology at [facility] Nohemi Swann, [facility] [place] [address] [facility] [phone] [facility] [place], [place] [address] Social History Tobacco Use [...] you need to be checked. [facility] [phone] 8a-5p Same Day Endo [phone] 7a-8p Otherwise contact [phone] and ask to speak to the policewoman conche loader and unloader Follow up care is a shel[place] part of your treatment and safety. Be sure to make and go to all appointments, and call your doctor if you are having problems. Discharge instructions reviewed with patient who expresses understanding Patient InstructionsButterNohemi jaurgeui MD - 01/16/2014 9:49 AM EDT Please [...] Operative Note Patient Name: Gregory Fatima : [id number] MR#: [id number] Case Date: 01/16/2014 Surgeon: Surgeon(s) and Role: * Nohemi Swann MD - Primary Preoperative diagnosis: 5 yr surv. Full procedure note is documented under the Procedure section of eDH. documented in this encounter Plan of Treatment Upcoming Encounters Date Type Specialty Care Team Description 05/28/2022 Appointment Cardiology Zulma Dolan MD [facility] [place], [place] [address] (Wo rk) 05/28/2022 Laboratory Appointment Lab 05/28/2022 Office Visit Cardiology Zulma Dolan MD [facility] [place] [address] Liz Poole PA [facility] [place] [address] 06/10/2022 Office Visit Dermatology Laura Scherer MD [facility] DR TEJA GR-DERMAT [place], [place] [address] (Wo rk) documented as of this encounter [...] Surgical Pathology Report (01/16/2014 9:53 AM EDT) [facility] Method Time Signature Surgical CERNER Pathology ? [facility] Report ? Provider: ?? NOHEMI SWANN ?Pt. Name: ?? MALICKEliseo RT, GERGORY E ? Acc #: ?[id number] ?Pt. MRN: ?[id number] ? Col Date: ?? 4 ? /Sex: [...] City/State/ZIP Code Phon e Number [place] [phone] RAKESH WALKER Specimen to Pathology (surgical or derm) (01/16/2014 9:53 AM EDT) Specimen Anatomical Collection Method Collection Time Receive d Time (Source) Location / / Volume Laterality AP Specimen 01/16/2014 9:53 AM 201 4 9:53 EDT AM EDT Narrative RAKESH CARVALHOIUM - 01/16/2014 9:53 AM E DT Specimen requisition ordered. ??Separate Pathology report to follow Nohemi Swann MD PATHOLOGY/CYTOLOGY ORDERABLE S Performing Organization Address City/State/[place] [address] [facility] Specimen to Pathology (surgical or derm) [...] S Performing Organization Address City/[facility]/[place] [address] CERNER MILLENNIUM COLONOSCOPY (01/16/2014 7:25 AM EDT) [facility] gist Method Time Signature COLONOSCOPY [facility] Endoscopy Patient Name: Gregory Fatima ? Procedure Date: 01/16/2014 7:25 AM ? N: [id number] ? Date of : 1945 ? Age: 68 ? Order #: [id number] ? Procedure: ? Colonoscopy Indications: ? High risk colon cancer surveillance : ? 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 dm on metformin with bs ~ 110 this ? am,s/p melanoma years ago, os a, ? goiter s/p surgery, [facility] Providers: ? Nohemi Swann MD, Blanca xiong, [...] Laterality 01/16/2014 7:25 AM EDT Angela Sotelo STRUCTURAL STEEL IRONWORKER GENERAL SURGICAL ORDERABLES Performing Organization Address City/State/ZIP Code Phon e Number [employer] documented in this encounter Visit Diagnoses Not on filedocumented in this encounter Active and Recently Administered Medications Times are shown in EDT. PRN Medication Order 01/14/2014 01/15/2014 01/16/2014 meperidine (PF) (DEMEROL) 100 mg/mL carpuject (CANCELED) 0856 (Given - Provider: Blanca Samuel RN)0902 (Given - Provider: Blanca Samuel, VAMSI)0911 (Given - Provider: Blanca Samuel, VAMSI) ONCE PRN, Starting 01/16/14 at 0856, Until 01/16/14 at 1036, Pain, Intra- Operative (Intra-Procedure), Routine midazolam (PF) (VERSED) 1 mg/mL injection (CANCELED) 0856 (Given - Provider: Blanca Samuel RN)0859 (Given - Provider: Blanca Samuel, VAMSI)0902 (Given - Provider: Blanca S Lizzie, RN)0911 (Given - Provider: Blanca Samuel, VAMSI)0914 (Given - Provider: Blanca Samuel RN) ONCE PRN, Starting Wed01/16/14 at 0856, Until Wed01/16/14 at 1036, Sleep, Intra- Operative (Intra-Procedure), Routine documented in this encounter Care Teams Chamber Magistrate Relationship Specialty Start Date End Date Angela Sotelo APRN PCP - General 01/25/13 04/15/[address] [place] [address] documented as of this encounter
--- OUTSIDE RECORDS SUMMARY | 2022-03-27 09:29 | XMS_ITS | Encounter Summary ---
:1945 [place] [address] Care Team Providers Name Role Phone Holley Hollidayica STACIE Primary Care Provider Encounter Details Date Type Department Care Team Description 03/28/2013 - [facility] ([facility] 03/29/2013 Barbara Gomes MD Dx) [facility] DR Siddiqui [place] [phone] Social History Tobacco Use Types Packs/Day Years [...] please call the General Surgery nurse at [phone], since this may mean that you need morecalcium. Follow-up Appointment: Will be scheduled with Dr. Mcknight in 6 weeks Date and time as well as any required labs will be mailed to you Please call [phone] to confirm date and time of your [...] by calcium supplementation. Phone number for questions: [phone] before 5 PM weekdays [phone] after 5 PM and on weekends/holidays Please follow up with Urology as per their recommendations for Bob removal AttachmentsThe following attachments cannot be sent through Care Everywhere. THYROIDECTOMY: WHAT TO EXPECT AT HOME (AMERICAN)URINARY CATHETER CARE: AFTER YOUR VISIT (AMERICAN)documented in this encounter Medications at Time of [...] is a 68 y.o. male presents to [facility] today for total thyroidectomy. See [...] - 03/28/2013 3:43 PM EDT [facility] Operative Note Patient Name: Gregory Fatima : [id number] MR#: [id number] Case Date: 03/28/2013 Surgeon: Surgeon(s) and Role: [...] patient was extubated and taken to the [facility] in stable condition. At the [...] Operative Note Patient Name: Gregory Fatima : [id number] MR#: [id number] Case Date: 03/28/2013 Surgeon: Surgeon(s) and Role: [...] Cardiology Zulma Dolan MD [facility] er Dr Reeder [place] [address] (Wo rk) 05/28/2022 Laboratory Appointment Lab 05/28/2022 Office Visit Cardiology Zulma Dolan MD [facility] INA Joaquin [address] [facility] [place] [address] 06/10/2022 Office Visit Dermatology Laura Scherer MD [facility] ER DR TEJA GR-DERMAT [place] [address] (Wo rk) documented as of this encounter [...] Organization Address City/State/[place] [address] CERNER MILLENNIUM (ABNORMAL) POCT [...] [facility]/[place] [address] CERNER MILLENNIUM (ABNORMAL) POCT [...] [facility]/ZIP Code Phon e Number [address] CERNER MILLENNIUM (ABNORMAL) POCT [...] [facility]/ZIP Code Phon e Number [address] CERNER MILLENNIUM (ABNORMAL) POCT [...] [facility]/ZIP Code Phon e Number [address] CERNER MILLENNIUM (ABNORMAL) POCT [...] [facility]/ZIP Code Phon e Number [address] CERNER MILLENNIUM (ABNORMAL) POCT [...] [facility]/ZIP Code Phon e Number [address] CERNER MILLENNIUM (ABNORMAL) POCT [...] [facility]/ZIP Code Phon e Number [address] [facility] Specimen to Pathology (surgical or [...] [facility]/ZIP Code Phon e Number [address] [facility] Pathology Addendum Report (03/28/2013 12:03 PM EDT) Component Value Ref Test Analysis Performed At [facility] gist Range Method Time Signature Addendum CERNER Report ? [facility] ? Provider: ?? MESHA MCKNIGHT Pt. Name: ?? GREGORY FATIMA ? Acc #: ?[id number] ?Pt. MRN: ?[id number] ? Col Date: ?? 03/28/2013 ?/Sex: ?1945,(68 [...] City/State/[place] [address] [facility] Surgical Pathology Report (03/28/2013 12:03 PM EDT) Component Value Ref Test Analysis Performed At [facility] gist Range Method Time Signature Surgical [facility] Pathology ? [facility] Report ? Provider: ?? MESHA MCKNIGHT Pt. Name: ?? GREGORY FATIMA ? Acc #: ?[id number] ?Pt. MRN: ?[id number] ? Col Date: ?? 03/28/2013 ?/Sex: ?1945,(68 [...] ? JRP ? 03/31/13 Verified by: ? Ruben Lindsey MD ? [...] areas of hemorrhage and ? calcifications. ? [facility] ? Provider: ?? MESHA MCKNIGHT Pt. Name: ?? GREGORY FATIMA ? Acc #: ?[id number] ?Pt. MRN: ?[id number] ? Col Date: ?? 03/28/2013 ?/Sex: ?1945,(68 years),Male ? Rec Date: ?? 03/28/2013 ?LOC: ?[facility] ? SURGICAL PATHOLOGY ? SECTIONS/PROCESSING: Tiger Machine Operator sections are subm itted. (R6) ? [...] City/State/[place] [address] CERNER MILLENNIUM Frozen Section Report (03/28/2013 12:03 PM EDT) Component Value Ref Test Analysis Performed At [facility] gist Range Method Time Signature Frozen CERNER Section ? [facility] Report ? Provider: ?? MESHA MCKNIGHT Pt. Name: ?? GREGORY FATIMA ? Acc #: ?[id number] ?Pt. MRN: ?[id number] ? Col Date: ?? 03/28/2013 ?/Sex: ?1945,(68 [...] Yusuf, Jessica gist ? The attending jessica gist whose electronic signature appears on this [...] [facility]/[place] [address] CERNER MILLENNIUM POCT Glucose [...] [facility]/ZIP Code Phon e Number [address] CERNER MILLENNIUM Specimen to [...] [facility]/[place] [address] CERNER MILLENNIUM Antibody screen (03/28/2013 9:37 AM EDT) Analysis Performed At Patho logist Time Signature Ab Screen Negative CERNER Interp MILLENNIUM Expires at [id number] CERNER 420 on: MILLENNIUM Specimen Anatomical Collection Method Collection Time Receive d Time (Source) Location / / Volume Laterality Blood specimen 03/28/2013 9:37 AM 013 9:37 (specimen) EDT AM EDT Resulting Agency Comment Spec In Lab Mesha Mcknight MD BLOOD BANK ORDERABLES Performing Organization Address City/[facility]/[place] [address] [facility] GR[facility]EL[facility] ABO/Rh Typing (03/28/2013 9:37 AM EDT) athologist Signature ABORh Type O Pos [facility] Specimen Anatomical Collection Method Collection Time Receive d Time (Source) Location / / Volume Laterality Blood specimen 03/28/2013 9:37 AM 013 9:37 (specimen) EDT AM EDT Resulting Agency Comment Spec In Lab Mesha Mcknight MD BLOOD BANK ORDERABLES Performing Organization Address City/[facility]/ZIP Code Phon e Number [address] [facility] Differential, Automated (03/28/2013 9:34 AM EDT) athologist [...] Organization Address City/State/ZIP Code Phon e Number [place] [id number]OS[address] CERNER MILLENNIUM (ABNORMAL) Basic [...] above were not validated at [facility]. Results from pediatri c patients [...] Anion Gap 11 5 - 15 mmol/L RAKESH VILLALOBOSENNIU M Calcium 10.7 (H) 8.5 - 10.5 mg/dL RAKESH VILLALOBOSEN NIUM Estimated GFR >60 >=60 RAKESH CARVALHOIU M Comment: This estimated GFR (eGFR) value [...] City/State/[place] [address] CERNER MILLENNIUM (ABNORMAL) CBC [...] MPV 9.3 9.0 - 12.0 CERNER fL [facility] Specimen Anatomical Collection Method Collection Time Receive d Time (Source) Location / / Volume Laterality Blood specimen 03/28/2013 9:34 AM 013 9:38 (specimen) EDT AM EDT Resulting Agency Comment Spec In Lab Mesha Mcknight MD HEMATOLOGY ORDERABLES Performing Organization Address City/[facility]/ZIP Code Phon e Number [address] [facility] POCT Glucose (03/28/2013 9:17 AM EDT) athologist [...] [facility]/ZIP Code Phon e Number [address] [facility] Specimen to Pathology (surgical or derm) (03/28/2013 8:55 AM EDT) Specimen Anatomical Collection Method Collection Time Receive d Time (Source) Location / / Volume Laterality AP Specimen 03/28/2013 8:55 AM 3 8:54 EDT AM EDT Narrative [facility] GRISELDAENNI[facility] - 03/28/2013 8:55 AM E DT Specimen requisition ordered. ??Separate Pathology report to follow Mesha Mcknight MD PATHOLOGY/CYTOLOGY ORDERABLE S Performing Organization Address City/[facility]/ZIP Code Phon e Number [address] [facility] documented in this encounter Visit [...] RN) 0900 (Given - Provider: Radha Yao [facility], RN) 2.5 mg, Oral, DAILY, First [...] mL (COMPLETED) 1999 (Given - Provider: Kesha Gracia, VAMSI) 0400 (Given - Provider: Waldo covington RN) 2 g, Intravenous, EVERY 8 HOURS, 2 doses , First dose on Wed03/28/13 at 2000, Last dose on Wed03/29/13 at 0400, Indication (Active or Suspected): Prophylaxis cholecalciferol (Vitamin D3) tablet 1,000 Units (CANCELED) 0900 (Given - Provider: Radha hCavira RN) 1,000 Units, Oral, DAILY, First dose [...] CON TINUOUS, Starting Wed03/28/13 at 0900, Until 9/3/13 at 1715, Day of Surgery (Day of [...] override documented in this encounter Care Teams Clinical Program Director Relationship Specialty Start Date End Date Angela Holliday APRN PCP - General 01/25/13 04/15/15 [address] [place] [address] documented as of this encounter
--- OUTSIDE RECORDS SUMMARY | 2022-03-27 09:29 | XMS_ITS | Encounter Summary ---
:1945 Author Organization [facility] [place] [address] Care Team Providers Name Role Phone Angela Holliday APRN Primary Care Provider Encounter Details Date Type Department Care Team Description 03/28/2013 Surgery Main Operating Room Mesha Mcknight, THYROIDECTOMY, [facility] 15.04[facility] DR [place]idd[place] [address] [place] [address] [phone] (Wo rk) Social History Tobacco Use Types [...] please call the General Surgery nurse at [phone], since this may mean that you need morecalcium. Follow-up Appointment: Will be scheduled with Dr. Mcknight in 6 weeks Date and time as well as any required labs will be mailed to you Please call [phone] to confirm date and time of your [...] by calcium supplementation. Phone number for questions: [phone] before 5 PM weekdays [phone] after 5 PM and on weekends/holidays Please follow up with Urology as per their recommendations for Bob removal AttachmentsThe following attachments cannot be sent through Care Everywhere. THYROIDECTOMY: WHAT TO EXPECT AT HOME (HUNGARIAN)URINARY CATHETER CARE: AFTER YOUR VISIT (HUNGARIAN)documented in this encounter Medications at Time of [...] Operative Note Patient Name: Gregory Fatima : [id number] MR#: [id number] Case Date: 03/28/2013 Surgeon: Surgeon(s) and Role: [...] Operative Note Patient Name: Gregory Fatima : [id number] MR#: [id number] Case Date: 03/28/2013 Surgeon: Surgeon(s) and Role: [...] Zulma Dolan MD [facility] er Dr [address] [address] (Wo rk) 05/28/2022 Laboratory Appointment Lab 05/28/2022 Office Visit Cardiology Zulma Dolan MD [facility] INA [place] [address] Liz Poole PA [facility] [place] [address] 06/10/2022 Office Visit Dermatology Laura Scherer MD [facility] ER DR TEJA GR[place]DERMAT [place] [address] (Wo rk) documented as of this encounter [...] Address City/State/[place] [address] CERNER MILLENNIUM (ABNORMAL) POCT [...] TEST ORDERABLE S Performing Organization Address City/[facility]/[place] [address] CERNER MILLENNIUM (ABNORMAL) POCT [...] TEST ORDERABLE S Performing Organization Address City/[facility]/ZIP Code Phon e Number [address] CERNER MILLENNIUM (ABNORMAL) POCT [...] TEST ORDERABLE S Performing Organization Address City/[facility]/ZIP Code Phon e Number [address] CERNER MILLENNIUM (ABNORMAL) POCT [...] TEST ORDERABLE S Performing Organization Address City/[facility]/ZIP Code Phon e Number [address] CERNER MILLENNIUM (ABNORMAL) POCT [...] TEST ORDERABLE S Performing Organization Address City/[facility]/ZIP Code Phon e Number [address] CERNER MILLENNIUM (ABNORMAL) POCT [...] TEST ORDERABLE S Performing Organization Address City/[facility]/ZIP Code Phon e Number [address] CERNER MILLENNIUM (ABNORMAL) POCT [...] TEST ORDERABLE S Performing Organization Address City/[facility]/ZIP Code Phon e Number [address] [facility] Specimen to Pathology (surgical or derm) (03/28/2013 12:14 PM EDT) Specimen Anatomical Collection Method Collection Time Receive d Time (Source) Location / / Volume Laterality AP Specimen 03/28/2013 12:14 03/28/2013 PM EDT 12:14 PM EDT Narrative CERNER MILLENNIUM - 03/28/2013 12:14 PM EDT Specimen requisition ordered. ??Separate Pathology report to follow Mesha Mcknight MD PATHOLOGY/CYTOLOGY ORDERABLE S Performing Organization Address City/[facility]/ZIP Code Phon e Number [address] [facility] Pathology Addendum Report (03/28/2013 12:03 PM EDT) Component Value Ref Test Analysis Performed At [facility] gist Range Method Time Signature Addendum CERNER Report ? [facility] ? Provider: ?? MESHA MCKNIGHT Pt. Name: ?? GREGORY FATIMA ? Acc #: ?[id number] ?Pt. MRN: ?[id number] ? Col Date: ?? 03/28/2013 ?/Sex: ?1945,(68 [...] Organization Address City/State/[place] [address] [facility] Surgical Pathology Report (03/28/2013 12:03 PM EDT) Component Value Ref Test Analysis Performed At [facility] gist Range Method Time Signature Surgical [facility] Pathology ? [facility] Report ? Provider: ?? MESHA MCKNIGHT Pt. Name: ?? GREGORY FATIMA ? Acc #: ?[id number] ?Pt. MRN: ?[id number] ? Col Date: ?? 03/28/2013 ?/Sex: ?1945,(68 [...] and ? calcifications. ? [facility] ? Provider: ?? MESHA MCKNIGHT Pt. Name: ?? GREGORY FATIMA ? Acc #: ?[id number] ?Pt. MRN: ?[id number] ? Col Date: ?? 03/28/2013 ?/Sex: ?1945,(68 years),Male ? Rec Date: ?? 03/28/2013 ?LOC: ?[facility] ? SURGICAL PATHOLOGY ? SECTIONS/PROCESSING: Mobile Homes Repairer sections are subm itted. (R6) ? B [...] Organization Address City/State/[place] [address] CERNER MILLENNIUM Frozen Section Report (03/28/2013 12:03 PM EDT) Component Value Ref Test Analysis Performed At [facility] gist Range Method Time Signature Frozen CERNER Section ? [facility] Report ? Provider: ?? MESHA MCKNIGHT Pt. Name: ?? GREGORY FATIMA ? Acc #: ?[id number] ?Pt. MRN: ?[id number] ? Col Date: ?? 03/28/2013 ?/Sex: ?1945,(68 [...] PATHOLOGY/CYTOLOGY ORDERABLE S Performing Organization Address City/[facility]/[place] [address] CERNER MILLENNIUM POCT Glucose [...] TEST ORDERABLE S Performing Organization Address City/[facility]/ZIP Code Phon e Number [address] CERNER MILLENNIUM Specimen to [...] PATHOLOGY/CYTOLOGY ORDERABLE S Performing Organization Address City/[facility]/[place] [address] CERNER MILLENNIUM Antibody screen (03/28/2013 9:37 AM EDT) Analysis Performed At Patho logist Time Signature Ab Screen Negative CERNER Interp MILLENNIUM Expires at [id number] CERNER 110 on: MILLENNIUM Specimen Anatomical Collection Method Collection Time Receive d Time (Source) Location / / Volume Laterality Blood specimen 03/28/2013 9:37 AM 013 9:37 (specimen) EDT AM EDT Resulting Agency Comment Spec In Lab Mesha Mcknight MD BLOOD BANK ORDERABLES Performing Organization Address City/[facility]/[place] [address] [facility] GRISELDAENNIUM ABO/Rh Typing (03/28/2013 9:37 AM EDT) athologist Signature ABORh Type O Pos [facility] Specimen Anatomical Collection Method Collection Time Receive d Time (Source) Location / / Volume Laterality Blood specimen 03/28/2013 9:37 AM 013 9:37 (specimen) EDT AM EDT Resulting Agency Comment Spec In Lab Mesha Mcknight MD BLOOD BANK ORDERABLES Performing Organization Address City/[facility]/ZIP Code Phon e Number [address] [facility] Differential, Automated (03/28/2013 9:34 AM EDT) athologist [...] Organization Address City/State/ZIP Code Phon e Number [place] [id number]OS[address] CERNER MILLENNIUM (ABNORMAL) Basic [...] Organization Address City/State/[place] [address] CERNER MILLENNIUM (ABNORMAL) CBC [...] MPV 9.3 9.0 - 12.0 CERNER fL [facility] Specimen Anatomical Collection Method Collection Time Receive d Time (Source) Location / / Volume Laterality Blood specimen 03/28/2013 9:34 AM 013 9:38 (specimen) EDT AM EDT Resulting Agency Comment Spec In Lab Mesha Mcknight MD HEMATOLOGY ORDERABLES Performing Organization Address City/[facility]/ZIP Code Phon e Number [address] RAK[facility] VILLALOBOSBAN[facility] POCT Glucose (03/28/2013 9:17 AM EDT) athologist Signature POC Glucose 108 60 - 199 CERNER mg/dL [facility] Comment: Supplemental ranges: <110 mg/dL before meals <200 mg/dL all other times of the day Specimen Anatomical Collection Method Collection Time Receive d Time (Source) Location / / Volume Laterality Blood specimen 03/28/2013 9:17 AM 013 9:17 (specimen) EDT AM EDT Mesha Mcknight MD POINT OF CARE TEST ORDERABLE S Performing Organization Address City/[facility]/ZIP Code Phon e Number [address] [facility] Specimen to Pathology (surgical or derm) (03/28/2013 8:55 AM EDT) Specimen Anatomical Collection Method Collection Time Receive d Time (Source) Location / / Volume Laterality AP Specimen 03/28/2013 8:55 AM 3 8:54 EDT AM EDT Narrative [facility] GRISELDAENNIUM - 03/28/2013 8:55 AM E DT Specimen requisition ordered. ??Separate Pathology report to follow Mesha Mcknight MD PATHOLOGY/CYTOLOGY ORDERABLE S Performing Organization Address City/[facility]/ZIP Code Phon e Number [address] RAKESH WALKER documented in this [...] dose, Starting on Wed03/29/13 at 0735, Until 9/4/13 at 1007, Per Protocol, Hold for fever [...] RN) 0900 (Given - Provider: Radha Yao [facility], VAMSI) 2.5 mg, Oral, DAILY, First [...] Gracia RN) 0400 (Given - Provider: Waldo covingtno RN) 2 g, Intravenous, EVERY 8 HOURS, [...] Provider: Cami Baxter, VAMSI)1341 (Given - Provider: nAgela Breaux, VAMSI)1420 (Given - Provider: Cami Baxter RN) 0.2-0.4 mg, Intravenous, EVERY 5 MIN PRN , Starting 03/28/13 at 1249, Until 03/28/13 at 1636, Pain, For moderate pain give: [...] Intravenous, EVERY 1 HOUR PRN, St arting e 03/28/13 at 1317, Until 03/28/13 at 1636, High Blood Pressure, SBP > [...] bowman when inserting catheter) 1 dose, Starting e 03/28/13 at 1405, Unt il 03/29/13 at 0214, MARQUES SOW: cabinet override documented in this encounter Care Teams Senior Clinical Data Analyst Relationship Specialty Start Date End Date Angela Holliday APRN PCP - General 01/25/13 04/15/15 [address] [place] [address] documented as of this encounter
--- OUTSIDE RECORDS SUMMARY | 2022-03-27 09:29 | XMS_ITS | Encounter Summary ---
:1945 Author Organization [facility] [place] [address] Care Team Providers Name Role Phone Angela Holliday APRN Primary Care Provider Encounter Details Date Type Department Care Team Description 04/30/2014 Orders Only Endocrinology at [facility] Albertina Palmer, Thyroid cancer [facility] Jorge Boyer MD ([place]) [place] [address] [facility] [phone] CENTER ENDOCRINOLOGY DEPT [place], [place] [address] Social History Tobacco Use [...] MD [facility] er Dr [place], [place] [address] (Wo rk) 05/28/2022 Laboratory Appointment Lab 05/28/2022 Office Visit Cardiology Zulma Dolan MD [facility] [place] [address] Liz Poole PA [facility] [place] [address] 06/10/2022 Office Visit Dermatology Laura Scherer MD [facility] ER DR TEJA GR-DERMAT [place], [place] [address] (Wo rk) documented as of this encounter Visit Diagnoses Diagnosis Thyroid cancer - Primary Malignant neoplasm of thyroid gland documented in this encounter Care Teams Cold Molding Press Operator Relationship Specialty Start Date End Date Angela Holliday APRN PCP - General 01/25/13 04/15/[address] [place] [address] documented as of this encounter
--- OUTSIDE RECORDS SUMMARY | 2022-03-27 09:29 | XMS_ITS | Encounter Summary ---
:1945 Author Organization [facility] [place] [address] Care Team Providers Name Role Phone Angela Sotelo APRN Primary Care Provider Encounter Details Date Type Department Care Team Description 01/16/2014 [place] [facility] [place]hemi Jaimes, COLONOSCOPY, [facility] Jorge mcnamara MD [place], [place] [address] [facility] ([facility] [phone] DR Cintron) GASTROENTEROLOGY DEPT. [place], [place] [address] Social History Tobacco Use [...] you need to be checked. Wednesday-Wednesday Clinic [phone] 8a-5p Same Day Endo [phone]-8p Otherwise contact [phone] and ask to speak to the stave and bolt equalizer mutton puncher Follow up care is a shelton part [...] Jaimes MD - 01/16/2014 9:49 AM EDT [facility] [place] Note Patient Name: Gregory Fatima : [id number] MR#: [id number] Case Date: 01/16/2014 Surgeon: Surgeon(s) and Role: [...] Cardiology Zulma Dolan MD [facility] [place] [address] Liz Poole PA [facility] [place] [address] 06/10/2022 Office Visit Dermatology Laura Scherer MD [facility] [address] [place] [id number] (Wo rk) documented as of this encounter [...] Time Signature Surgical CERNER Pathology ? [facility] Report ? Provider: ?? SHREE, NOHEMI Gonzalez ?Pt. Name: ?? MALICKA RT, GREGORY E ? Acc #: ?[id number] ?Pt. MRN: ?[id number] ? Col Date: ?? 4 ? /Sex: [...] Organization Address City/State/ZIP Code Phon e Number [place] [phone] RAKESH WALKER Specimen to [...] MD PATHOLOGY/CYTOLOGY ORDERABLE S Performing Organization Address City/[facility]/[place] [address] CERNER MILLENNIUM Specimen to [...] MD PATHOLOGY/CYTOLOGY ORDERABLE S Performing Organization Address [facility] [place] [address] CERNER MILLENNIUM COLONOSCOPY (01/16/2014 7:25 AM EDT) [facility] gist Method Time Signature COLONOSCOPY [facility] Endoscopy Patient Name: Gregory Fatima ? Procedure Date: 01/16/2014 7:25 AM ? N: [id number] ? Date of : 1945 ? Age: 68 ? Order #: [id number] ? Procedure: ? Colonoscopy Indications: ? High [...] Laterality 01/16/2014 7:25 AM EDT Angela Sotelo COMMUNITY HEALTH DIRECTOR GENERAL SURGICAL ORDERABLES Performing Organization Address City/State/ZIP [...] Provider: Blanca Samuel RN) ONCE PRN, Starting Tu01/16/14 at 0856, Until Wed01/16/14 at 1036, Pain, [...] Routine documented in this encounter Care Teams Meal Room Hand Relationship Specialty Start Date End Date Angela Sotelo APRN PCP - General 01/25/13 04/15/[address] [place] [address] documented as of this encounter
--- OUTSIDE RECORDS SUMMARY | 2022-03-27 09:29 | XMS_ITS | Encounter Summary ---
:1945 Author Organization [facility] [place] [address] Care Team Providers Name Role Phone Angela Holliday APRN Primary Care Provider Encounter Details Date Type Department Care Team Description 04/05/2013 Office Visit Urology at [facility] [place] [address] Social History Tobacco Use Types Packs/Day Years Used Date Former Smoker Alcohol Use Standard Drinks/Week Comments No 0 (1 standard drink = 0.6 oz pure alcoho l) Sex Assigned at Date Recorded Not on file documented as of this encounter Plan of Treatment Upcoming Encounters Date Type Specialty Care Team Description 05/28/2022 Appointment Cardiology Zulma Dolan MD [facility] [address] [place], [place] [address] (Wo rk) 05/28/2022 Laboratory Appointment Lab 05/28/2022 Office Visit Cardiology Zulma Dolan MD [facility] [place] [address] Liz Poole PA [facility] [place] [address] 06/10/2022 Office Visit Dermatology Laura Scherer MD [facility] [address] [place], [place] [address] (Wo rk) documented as of this encounter Visit Diagnoses Not on filedocumented in this encounter Care Teams Valet Service Attendant Relationship Specialty Start Date End Date Angela Holliday APRN PCP - General 01/25/13 04/15/[address] [place] [address] documented as of this encounter
--- OUTSIDE RECORDS SUMMARY | 2022-03-27 09:29 | XMS_ITS | Encounter Summary ---
:1945 Author Organization [facility] [place] [address] Care Team Providers Name Role Phone Angela Holliday APRN Primary Care Provider Encounter Details Date Type Department Care Team Description 03/30/2013 Telephone General Surgery at [facility] Cliff eNvarez, [place] [address] Social History Tobacco Use Types Packs/Day [...] [facility] [place], [place] [address] (Wo rk) 05/28/2022 Laboratory Appointment Lab 05/28/2022 Office Visit Cardiology [place]ul[place] [address] Liz Poole PA [facility] [place] [address] 06/10/2022 Office Visit Dermatology Laura Scherer MD [facility] DR [address] [place], [place] [address] (Wo rk) documented as of this encounter Visit Diagnoses Not on filedocumented in this encounter Care Teams Contracts Paralegal Relationship Specialty Start Date End Date Angela Holliday APRN PCP - General 01/25/13 04/15/[address] [place] [address] documented as of this encounter
--- OUTSIDE RECORDS SUMMARY | 2022-03-27 09:29 | XMS_ITS | Encounter Summary ---
:1945 Author Organization [facility] [place] [address] Care Team Providers Name Role Phone Angela Holliday APRN Primary Care Provider Encounter Details Date Type Department Care Team Description 01/25/2013 Clinical [place] [address] Social History Tobacco Use Types Packs/Day [...] Dolan MD [facility] [address] [place], [place] [address] (Wo rk) 05/28/2022 Laboratory Appointment Lab 05/28/2022 Office Visit Cardiology Zulma Dolan MD [facility] [place] [address] Liz Poole PA [facility] [place] [address] 06/10/2022 Office Visit Dermatology Laura Scherer MD [facility] [address], [place] [address] (Wo rk) documented as of this encounter Visit Diagnoses Not on filedocumented in this encounter Care Teams Pest Control Chemical Technician Relationship Specialty Start Date End Date Angela Holliday APRN PCP - General 01/25/13 04/15/[address] [place] [address] documented as of this encounter
--- OUTSIDE RECORDS SUMMARY | 2022-03-27 09:29 | XMS_ITS | Encounter Summary ---
:1945 [place] [address] Care Team Providers Name Role Phone MiyaLokeshAngela STACIE Primary Care Provider Encounter Details Date Type Department Care Team Description 03/28/2013 Anesthesia Event Main Operating Room Meredith Calvert MD [facility] [place] [address] [facility] Nolvia Riojas PA [facility] [place] [address] [place] [address] Anesthesia Record Procedure Summary Procedure Name [...] Tessa Shea, NIM; ETT Size: 7 mm Drain/Device Site 03/28/13; 1146; neck; 03/28/13 1146 [...] URI No hx anesthetic problems Last ASA 03/24 All: NKDA NPO: Solids 2030, liquids 0600(blk [...] Zulma Dolan MD [facility] [place], [place] [address] (Wo rk) 05/28/2022 Laboratory Appointment Lab 05/28/2022 Office Visit Cardiology Zulma Dolan MD [facility] [place] [address] Liz Poole PA [facility] [place] [address] 06/10/2022 Office Visit Dermatology Laura Scherer MD [facility] [address] [place], [place] [address] (Wo [...] Routine documented in this encounter Care Teams Parasitology Teacher Relationship Specialty Start Date End Date Angela Holliday APRN PCP - General 01/25/13 04/15/[address] [place] [address] documented as of this encounter
--- OUTSIDE RECORDS SUMMARY | 2022-03-27 09:30 | XMS_ITS | Encounter Summary ---
:1945 Author Organization [facility] [place] [address] Care Team Providers Name Role Phone Adi Costello MD Primary Care Provider Reason for Visit Reason Comments Annual Exam ckeck his groin and melanoma follow-up Encounter Details Date Type Department Care Team Description 11/21/2010 Follow-Up Dermatology Arik Tipton Melanoma (Primary Dx) [facility] MD [place] [phone] DERMATOLOGY DEPT . [place] [phone] (Wo rk) Social History Tobacco Use Types Packs/Day Years Used Date Former Smoker Alcohol Use Standard Drinks/Week Comments No 0 (1 standard drink = 0.6 oz pure alcoho l) Sex Assigned at Date Recorded Not on file documented as of this encounter Progress Notes Arik Tipton - 11/21/2010 10:17 AM EDT DERMATOLOGY NOTE Date of service: 11/21/2010 Don Fatima : 1945 Provider: Arik Tpiton MD PROBLEM: Melanoma follow-up. HPI Don Fatima is a 65 y.o. 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 His only complaints are leg cramps, skin [...] Arik Tipton MD Section of Dermatology [facility] documented in this encounter Plan of Treatment Upcoming Encounters Date Type Specialty Care Team Description 05/28/2022 Appointment Cardiology Zulma Dolan MD [facility] Dr [place], [place] [address] (Wo rk) 05/28/2022 Laboratory Appointment Lab 05/28/2022 Office Visit Cardiology Zulma Dolan MD [facility] [place] [address] Liz Poole PA [facility] [place] [address] 06/10/2022 Office Visit Dermatology Laura Scherer MD [facility] DR [address] [place], [place] [address] (Wo rk) documented as of this encounter Visit Diagnoses Diagnosis Melanoma - Primary Melanoma of skin, site unspecified documented in this encounter Care Teams Literacy Teacher Relationship Specialty Start Date End Date Adi Costello MD PCP - General 06/17/10 09/21/11 [address] [place] [address] documented as of this encounter
--- OUTSIDE RECORDS SUMMARY | 2022-03-27 09:30 | XMS_ITS | Encounter Summary ---
:1945 Author Organization [facility] [place] [address] Care Team Providers Name Role Phone Brody Berrios MD Primary Care Provider Reason for Visit Reason Comments Annual Exam Encounter Details Date Type Department Care Team Description 09/22/2011 Follow-Up Dermatology Arik Tipton Psoriasis (Primary Dx); [facility] MD Jorge Personal history of other malignant neop lasm of skin Drive [place] [phone] DERMATOLOGY DEPT . 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 His only complaints tail bone [...] changes: Arik Tipton MD Section of Dermatology [facility] documented in this encounter Plan of Treatment Upcoming Encounters Date Type Specialty Care Team Description 05/28/2022 Appointment Cardiology Zulma Dolan MD [facility] [address] [place], [place] [address] (Wo rk) 05/28/2022 Laboratory Appointment Lab 05/28/2022 Office Visit Cardiology Zulma Dolan MD [facility] [place] [address] Liz Poole PA [facility] [place] [address] 06/10/2022 Office Visit Dermatology Laura Scherer MD [facility] DR [address], [place] [address] (Wo rk) documented as of this encounter Visit Diagnoses Diagnosis Psoriasis - Primary Other psoriasis Personal history of other malignant neop lasm of skin documented in this encounter Care Teams Machine Farmworker Relationship Specialty Start Date End Date Brody Berrios MD PCP - General 09/22/11 10/03/[address] [place] [address] documented as of this encounter
--- OUTSIDE RECORDS SUMMARY | 2022-03-27 09:30 | XMS_ITS | Encounter Summary ---
:1945 Author Organization [facility] [place] [address] Care Team Providers Name Role Phone Unknown Primary Care Provider Unavailable Reason for Visit Reason Comments Other Encounter Details Date Type Department Care Team Description 10/05/2012 Telephone Dermatology at [facility] Rigoberto Garcia III, [address] [place] [address] [facility] [phone] TE[address] [place] [address] (Wo rk) Social History Tobacco Use Types [...] Zulma Dolan MD [facility] [place], [place] [address] (Wo rk) 05/28/2022 Laboratory Appointment Lab 05/28/2022 Office Visit Cardiology Zulma Dolan MD [facility] [place] [address] Liz Poole PA [facility] [place] [address] 06/10/2022 Office Visit Dermatology Laura Scherer MD [facility] DR TEJA [place] [place], [place] [address] (Wo rk) documented as of this encounter Visit Diagnoses Not on filedocumented in this encounter Care Teams Optical Goods Worker Relationship Specialty Start Date End Date Unknown PCP - General 10/04/12 01/24/13 None documented as of this encounter
--- OUTSIDE RECORDS SUMMARY | 2022-03-27 09:30 | XMS_ITS | Encounter Summary ---
:1945 Author Organization [facility] [place] [address] Care Team Providers Name Role Phone Angela Holliday APRN Primary Care Provider Reason for Referral Surgical (Routine) - Closed Specialty Diagnoses / Procedures Referred By Contact Refer red To Contact General Surgery Diagnoses Elijah Villagomez MD Colacchio, Thomas A, MD [address] [place] [address] [place] [address] [place] [address] Phone: Fax: Referral ID Status Reason Start Date Expiration Date Visits V isits Requested Authorized [id number] Closed Specialty 01/25/2013 07/24/2013 1 1 Service Requested Reason for Visit Reason Comments Thyroid Problem Encounter Details Date Type Department Care Team Description 01/25/2013 Office Visit Endocrinology at [facility] Elijah Fuentes Goiter (Primary Dx) [facility] [address] [place] [phone] [place] [address] [phone] Social History Tobacco Use Types Packs/Day Years [...] History Nonsmoker 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 All other [...] the thyroid gland were obtained using a SonSparksfly Technologiesaxx and an HFL38/13-6 broadband linear array transducer. [...] Cardiology Zulma Dolan MD [facility] [place], [place] [address] (Wo rk) 05/28/2022 Laboratory Appointment Lab 05/28/2022 Office Visit Cardiology Zulma Dolan MD [facility] [place] [address] Liz Poole PA [facility] [place] [address] 06/10/2022 Office Visit Dermatology Laura Scherer MD [facility] [address], [place] [address] (Wo rk) Scheduled Referrals Name [...] Organization Address City/State/[place] [address] CERNER MILLENNIUM documented in this encounter Visit Diagnoses Diagnosis Goiter - Primary Goiter, unspecified documented in this encounter Care Teams Prospect Manager Relationship Specialty Start Date End Date Angela Holliday APRN PCP - General 01/25/13 04/15/[address] [place] [address] documented as of this encounter
--- OUTSIDE RECORDS SUMMARY | 2022-03-27 09:31 | XMS_ITS | Clinical Summary ---
:1945 Author Organization [facility] Address [address] [place] [address] Care Team Providers Name Role Phone Lovely [...] i n the results section. COVID-19 TEST [facility] Today 01/27/2022 14:30 LAB PCR EDT COVID-19 TESTING Routine 01/27/2022 14:30 Results for this EDT procedure are i n the results section. from Last 3 Months Results PSA TOTAL, DIAGNOSTIC (02/20/2022 9:04 EDT) Pathologist Sig nature PSA 2.7 <=6.5 ng/mL [facility] Specimen Blood - Venous blood (substance) Narrative [facility] - 02/20/2022 18:17 EDT NOTE: Serum PSA concentration should not be in terpreted as absolute evidence for the presence or absence of malignant disease. Assayed on Siemens ADVIA Centaur XPT usi ng chemiluminescent technology.??Values obtained by using different assay methods cannot be used interchangeably. Performing Organization Address City/State/ZIP Code Phon e Number [facility] [address] [place] [address] SERVICES COVID-19 TEST [facility] LAB PCR (01/27/2022 14:30 EDT) Specimen Swab Performing Organization Address City/[facility]/ZIP Code Phon e Number [facility] [address] [place] [address] SERVICES COVID-19 TESTING (01/27/2022 14:30 EDT) COVID-19 rt-PCR Negative Negative [facility] Result Comment: [facility] [...] performed using the meliton SARS-CoV-2 assay ([employer] on the Meliton 6800 System Performing Lab [place] 6800 [facility] Lab [facility] Specimen Swab Performing Organization Address City/[facility]/ZIP Code Phon e Number [facility] [address] [place] [address] SERVICES from Last 3 Months Care Teams Propeller Tester Relationship Specialty Start Date End Date Lovely Vicente MD PCP - General 07/13/14
--- OUTSIDE RECORDS SUMMARY | 2022-03-27 09:31 | XMS_ITS | Encounter Summary ---
:1945 Author Organization [facility] Address [address] [place] [address] Care Team Providers Name Role Phone Lovely Vicente MD Primary Care Provider Encounter Details Date Type Department Care Team Description 01/01/2020 Lab Requisition [facility] Outr Resulting Lab, Pathology & Laboratory Provider [facility] [address] [place] [address] Social History Tobacco Use Types Packs/Day Years [...] nature PSA 2.1 0.0 - 6.5 ng/mL [facility] SERVICES Specimen Blood - Venous blood (substance) Narrative [facility] - 01/02/2020 10:40 EDT NOTE: Serum PSA concentration should not be in terpreted as absolute evidence for the presence or absence of malignant disease. Assayed on Siemens ADVIA Centaur XPT usi ng chemiluminescent technology.??Values obtained by using different assay methods cannot be used interchangeably. Performing Organization Address City/State/ZIP Code Phon e Number [facility] [address] [place] [address] SERVICES documented in this encounter Visit Diagnoses Not on filedocumented in this encounter Care Teams Office Cashier Relationship Specialty Start Date End Date Lovely Vicente MD PCP - General 07/13/14 documented as of this encounter
--- OUTSIDE RECORDS SUMMARY | 2022-03-27 09:31 | XMS_ITS | Encounter Summary ---
:1945 Author Organization [facility] Address [address] [place] [address] Care Team Providers Name Role Phone Lovely Vicente MD Primary Care Provider Encounter Details Date Type Department Care Team Description 01/28/2022 Lab Requisition [facility] Outr Resulting Lab, Pathology & Laboratory Provider [facility] [address] [place] [address] Social History Tobacco Use Types Packs/Day Years Used Date Never Assessed Sex Assigned at Date Recorded Not on file documented as of this encounter Plan of Treatment Not on filedocumented as of this encounter Procedures Procedure Name Priority Date/Time Associated Diagnosis Comme nts COVID-19 TEST [facility] Today 01/27/2022 14:30 LAB PCR EDT COVID-19 TESTING Routine 01/27/2022 14:30 Results for this EDT procedure are i n the results section. documented in this encounter Results COVID-19 TEST [facility] LAB PCR (01/27/2022 14:30 EDT) Specimen Swab Performing Organization Address City/State/ZIP Code Phon e Number [facility] [address] [place] [address] SERVICES COVID-19 TESTING (01/27/2022 14:30 EDT) COVID-19 rt-PCR Negative Negative [facility] MED[facility] Result Comment: [facility] [...] was performed using the meliton SARS-CoV-2 assay ([employer] on the Meliton 6800 System Performing Lab [address] 6800 [facility] Lab [facility] SERVICES Specimen Swab Performing Organization Address City/State/ZIP Code Phon e Number [facility] [address] [place] [address] SERVICES documented in this encounter Visit Diagnoses Not on filedocumented in this encounter Care Teams In Store Banker Relationship Specialty Start Date End Date Lovely Vicente MD PCP - General 07/13/14 documented as of this encounter
--- OUTSIDE RECORDS SUMMARY | 2022-03-27 09:31 | XMS_ITS | Encounter Summary ---
:1945 Author Organization [facility] Address [address] [place] [address] Care Team Providers Name Role Phone Lovely Vicente MD Primary Care Provider Encounter Details Date Type Department Care Team Description 04/04/2021 Lab Requisition [facility] Outr Resulting Lab, Pathology & Laboratory Provider [facility] [address] [place] [address] Social History Tobacco Use Types Packs/Day Years [...] (04/03/2021 12:15 EDT) Giardia and Cryptosporidium Cryptosporidium [facility] Cryptosporidium Antigen Neg and Antigen Neg and CENTER Giardia Antigen Neg Giardia Antigen Neg LABORATORY SERVICES Specimen Feces - Specimen from rectum (specimen) Performing Organization Address City/State/ZIP Code Phon e Number [facility] [address] [place] [address] SERVICES documented in this encounter Visit Diagnoses Not on filedocumented in this encounter Care Teams Splitting Machine Operator Helper Relationship Specialty Start Date End Date Lovely Vicente MD PCP - General 07/13/14 documented as of this encounter
--- OUTSIDE RECORDS SUMMARY | 2022-03-27 09:31 | XMS_ITS | Encounter Summary ---
:1945 Author Organization [facility] Address [address] [place] [address] Care Team Providers Name Role Phone Lovely Vicente MD Primary Care Provider Encounter Details Date Type Department Care Team Description 08/11/2019 Lab Requisition [facility] Unknown, Provider, Pathology & Laboratory [facility] [address] [facility] [place] [address] Social History Tobacco Use Types Packs/Day Years [...] Pathologist Sig nature Salmonella PCR Negative Negative [facility] SERVICES Shigella/Enteroinvasive Negative Negative [facility] R E. coli LABORATORY SERVICES HN LAB CAMPYLOBACTER PCR Negative Negative [facility] ER LABORATORY SERVICES Shiga Toxin PCR Negative Negative [facility] SERVICES Specimen Feces - Specimen from rectum (specimen) Performing Organization Address City/State/ZIP Code Phon e Number [facility] [address] [place] [address] SERVICES documented in this encounter Visit Diagnoses Not on filedocumented in this encounter Care Teams Director Of Community Services Relationship Specialty Start Date End Date Lovely Vicente MD PCP - General 07/13/14 documented as of this encounter
--- OUTSIDE RECORDS SUMMARY | 2022-03-27 09:31 | XMS_ITS | Encounter Summary ---
:1945 Author Organization [facility] Address [address] [place] [address] Care Team Providers Name Role Phone Lovely Vicente MD Primary Care Provider Encounter Details Date Type Department Care Team Description 08/11/2019 Lab Requisition [facility] Unknown, Provider, Pathology & Laboratory [facility] [address] [facility] [address] Social History Tobacco Use Types Packs/Day Years [...] (08/11/2019 14:35 EST) Giardia and Cryptosporidium Cryptosporidium [facility] Cryptosporidium Antigen Neg and Antigen Neg and CENTER Giardia Antigen Neg Giardia Antigen Neg LABORATORY SERVICES Specimen Feces - Specimen from rectum (specimen) Performing Organization Address City/State/ZIP Code Phon e Number [facility] [address] [place] [address] SERVICES documented in this encounter Visit Diagnoses Not on filedocumented in this encounter Care Teams Front End Application Developer Relationship Specialty Start Date End Date Lovely Vicente MD PCP - General 07/13/14 documented as of this encounter
--- OUTSIDE RECORDS SUMMARY | 2022-03-27 09:31 | XMS_ITS | Encounter Summary ---
:1945 Author Organization [facility] Address [address] [place] [address] Care Team Providers Name Role Phone Unknown, Provider Primary Care Provider Encounter Details Date Type Department Care Team Description 07/11/2014 Results Only [facility] Shruthi Horowitz MD Laboratory Services - [address] [place] [address] [place] [address] 0 [facility] [place] [address] [phone] Social History Tobacco Use Types Packs/Day Years Used Date Never Assessed Sex Assigned at Date Recorded Not on file documented as of this encounter Plan of Treatment Not on filedocumented as of this encounter Procedures Procedure Name Priority Date/Time Associated Diagnosis Comme [facility] SURGICAL PATHOLOGY Routine 07/11/2014 8:55 EST Re sults for this procedure are i n the results section. documented in this encounter Results SURGICAL PATHOLOGY (07/11/2014 8:55 EST) Pathology Report: SURGICAL PATHOLOGY REPORT [facility] Reports generated via electronic interface contain sorin ginal data; LABORATORY however they are lacking the format of the original re port. SERVICES Caution should be taken when reading/interpreting unfo rmatted reports. Name: ? DON HOANG ? Accession #: ? [id number] ? : ? 1945 (Age: 69) ??M [...] 6.5 x 3.0 cm in aggreg ate). Log Feeder sections are submitted in 1- 10 (approximately 40% of the specimen is submitted). Viry Nunez 07/12/2014 11:21 AM End of Report Specimen Performing Organization Address City/State/ZIP Code Phon e Number [facility] [address] [place] [address] SERVICES documented in this encounter Visit Diagnoses Not on filedocumented in this encounter Care Teams Insole And Heel Stiffener Relationship Specialty Start Date End Date Unknown, Provider, PCP - General 03/07/14 07/12/14 documented as of this encounter
--- OUTSIDE RECORDS SUMMARY | 2022-03-27 09:31 | XMS_ITS | Encounter Summary ---
:1945 Author Organization [facility] Address [address] [place] [address] Care Team Providers Name Role Phone Unavailable Primary Care Provider Unavailable Encounter Details Date Type Department Care Team Description 03/05/2014 Hospital Encounter [facility]- Heather Unknown, Provider, [facility] 0 [facility] [phone] [place] [address] (Work) [phone] Social History Tobacco Use Types Packs/Day Years [...]
--- OUTSIDE RECORDS SUMMARY | 2022-03-27 09:31 | XMS_ITS | Encounter Summary ---
:1945 Author Organization [facility] Address [address] [place] [address] Care Team Providers Name Role Phone Lovely Vicente MD Primary Care Provider Encounter Details Date Type Department Care Team Description 04/04/2021 Lab Requisition [facility] Outr Resulting Lab, Pathology & Laboratory Provider [facility] [address] [place] [address] Social History Tobacco Use Types Packs/Day Years [...] Pathologist Sig nature Salmonella PCR Negative Negative [facility]ORY SERVICES Shigella/Enteroinvasive Negative Negative [facility] LAB[facility]ATORY SERVICES HN LAB CAMPYLOBACTER PCR Negative Negative [facility] ER LABORATORY SERVICES Shiga Toxin PCR Negative Negative [facility] LABORATORY SERVICES Specimen Feces - Specimen from rectum (specimen) Performing Organization Address City/State/ZIP Code Phon e Number [facility] [address] [place] [address] SERVICES documented in this encounter Visit Diagnoses Not on filedocumented in this encounter Care Teams Heater Helper Relationship Specialty Start Date End Date Lovely Vicente MD PCP - General 07/13/14 documented as of this encounter
--- OUTSIDE RECORDS SUMMARY | 2022-03-27 09:31 | XMS_ITS | Encounter Summary ---
:1945 Author Organization [facility] Address [address] [place] [address] Care Team Providers Name Role Phone Unknown, Provider Primary Care Provider Encounter Details Date Type Department Care Team Description 03/05/2014 Results Only [facility] Eris Taylor MD Laboratory Services - [address] [place] [address] [place] [address] [phone] Social History Tobacco Use Types Packs/Day Years [...] ? DON HOANG ? Accession #: ? [id number] ? : ? 1945 (Age: 68) ??M [...] and 2nd portion is a s jasper ocrdova-brown tissue fragment (0.3 x 0.2 x 0.2 [...] Organization Address City/State/ZIP Code Phon e Number [facility] [address] [place] [address] SERVICES [facility] [address] [place] [address] documented in this encounter Visit Diagnoses Not on filedocumented in this encounter Care Teams Fruit Or Nut Farmer Relationship Specialty Start Date End Date Unknown, Provider, PCP - General 03/07/14 07/12/14 documented as of this encounter
--- OUTSIDE RECORDS SUMMARY | 2022-03-27 09:32 | XMS_ITS ---
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 Problem Atherosclerosis I70.90 Active Problem Type 2 diabetes E11.628 Active mellitus with other skin complications 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 40 ; Acquired deformi ty of right foot M21.961 ; L luis term current use of i nsulin Z79.4 ; History of art erial bypass of lower extremi ty Z95.828 ; Atherosclerosis I70.90 and History of Lisfr anc amputation of fo ot Z89.439 [facility] Feb, Type 2 diabet es mellitus [address] [place], [place] with diabe tic neuropathy, [address] unspecified E11. 40 ; Acquired deformi ty of right foot M21.961 ; L luis term current use of i nsulin Z79.4 ; History of art erial bypass of lower extremi ty Z95.828 ; Atherosclerosis I70.90 and History of Lisfr anc amputation of fo ot Z89.439 [facility] November, [place] [address] [address] November, Type 2 [place] [address] with diabeti c neuropathy, unspecified E11. 40 ; Acquired deformi ty of right foot M21.961 ; L luis term current use of i nsulin Z79.4 ; History of art erial bypass of lower extremi ty Z95.828 ; Atherosclerosis I70.90 and History of Lisfr anc amputation of fo ot Z89.439 [facility] 10 Aug, 2019 Type 2 [place] [address] with other skin complications E1 1.628 ; Tinea pedis of l eft foot B35.3 ; Type 2 d iabetes mellitus with di abetic neuropathy, unsp ecified E11.40 ; Acquire d deformity of right foot M2 1.961 ; laborer marine terminal current use of insulin Z79.4 ; History of arterial bypass of lower extremity Z95.828 and Athe rosclerosis I70.90 [facility] Jun, [place] [address] [address] Jun, [place] [address] [address] Jun, Type 2 diabet es mellitus [place], [place] with other skin [address] complications E1 1.628 ; Acquired deformi ty of right foot M21.961 ; T ype 2 diabetes mellitu s with diabetic neuropa thy, unspecified E11. 40 ; skilled nursing current use of insulin Z79.4 and Histor y of arterial bypass of lower extremity Z95.82 8 [facility] [address] [place] [address] Feb, Type 2 [place] [address] with other s kin complications E1 1.628 ; Acquired deformi ty of right foot M21.961 ; T ype 2 diabetes mellitu s with diabetic neuropa thy, unspecified E11. 40 ; skilled nursing current use of insulin Z79.4 and Histor y of arterial bypass of lower extremity Z95.82 8 [facility] November, Tinea pedis o f left foot [place], [place] B35.3 ; Ty pe 2 diabetes [address] mellitus with ot her skin complications E1 1.628 ; Acquired deformi ty of right foot M21.961 ; T ype 2 diabetes mellitu s with diabetic neuropa thy, unspecified E11. 40 ; laborer marine terminal current use of insulin Z79.4 and Histor y of arterial bypass of lower extremity Z95.82 8 [facility] November, [place] [address] [address] Aug, Type 2 diabet es mellitus [place], [place] with diabe tic neuropathy, [address] unspecified E11. 40 ; Acquired deformi ty of right foot M21.961 ; P eripheral arterial disease I73.9 ; History of arter ial bypass of lower extremi ty Z95.828 ; laborer marine terminal curren t use of insulin Z79.4 an d History of Lisfranc amputat ion of foot Z89.439 UNKNOWN Jul, [facility] [address] [facility] Jun, Type 2 [place] [address] with diabeti c neuropathy, unspecified E11. 40 [facility] Apr, Edema of both legs R60.0 ; [place], [place] Acquired d eformity of right [address] foot M21.961 ; P eripheral arterial disease I73.9 ; History of arter ial bypass of lower extremi ty Z95.828 ; laborer marine terminal curren t use of insulin Z79.4 an d Type 2 diabetes mellitu s with diabetic neuropa thy, unspecified E11. [address] [facility] Mar, [place] [address] [address] Mar, Edema of both legs R60.0 ; [place] Acquired d eformity of right [address] foot M21.961 ; P eripheral arterial disease I73.9 ; History of arter ial bypass of lower extremi ty Z95.828 ; skilled nursing curren t use of insulin Z79.4 an d Type 2 diabetes mellitu s with diabetic neuropa thy, unspecified E11. 40 [facility] Feb, Edema of both legs R60.0 ; [place] [address] Ulcer of lef t calf, limited to breakdown of skin L97.221 ; Acquired defor mity of right foot M21.9 61 ; Peripheral arter ial disease I73.9 ; History of arterial bypass of lower extremity Z95.828 ; Long t erm current use of insulin Z 79.4 and Type 2 diabetes mellitus with diabetic ne uropathy, unspecified E11. 40 [facility] [address] Feb, [place] [address] [facility] Feb, Edema of both legs R60.0 ; [place] [address] Ulcer of rig ht calf, limited to [...] uropathy, unspecified E11. 40 [facility] [address] [facility] [address] Feb, [place] [address] [facility] [address] Feb, [place] [address] [facility] [address] [facility] Jan, [place] [address] [facility] [address] [facility] [facility] [address] Jan, [place] [address] [facility] [address] [facility] [facility] Jan, [place] [address] [facility] [address] [facility] [facility] Jan, [place] [address] [facility] [address] [facility] [facility] Jan, [place] [address] [facility] [address] [facility] [facility] Dec, [place] [address] [facility] [address] [facility] Dec, [place] [address] [facility] [address] [facility] [facility] Dec, [place] [address] [facility] [address] [facility] Dec, [place] [address] [facility] [address] Dec, [place] [address] [facility] [address] [facility] Dec, [place] [address] [facility] [address] November, [place] [address] [facility] [address] [facility] November, [place] [address] [facility] [address] [facility] November, [place] [address] [facility] [address] [facility] November, [place] [address] [facility] [address] November, [place] [address] [facility] [address] November, [place] [address] UNKNOWN November, [facility] [address] [place] [address] November, [facility] [address] [facility] [address] [facility] [facility] [address] November[place] [address] [facility] [address] [facility] Oct, [place] [address] [facility] [address] [facility] Oct, [place] [address] [facility] [address] [facility] Oct, [place] [address] [facility] [address] Oct, [facility] [address] [facility] [address] [facility] Oct, [place] [address] [facility] [address] Oct, [place] [address] [facility] [address] [facility] Oct, [place] [address] [facility] [address] [facility] Oct, [place] [address] [facility] [address] [facility] Oct, [place] [address] [facility] [address] Sep, [place] [address] [facility] Sep, [place] [address] [facility] [address] Sep, [place] [address] [facility] [address] Sep, [place] [address] [facility] [address] Sep, [place] [address] [facility] [address] [place] Sep, Critical ischemi a of lower [place] [address] extremity I 99.8 ; Local infection of the skin and subcutaneous tis lindsey, unspecified L08. 9 and Type 2 diabetes mellitu s with other skin complicatio ns E11.628 [facility] [address] [facility] Sep, [place] [address] [facility] [address] [facility] [address] Sep, [place] [address] [facility] [address] [facility] Sep, [place] [address] [facility] [address] [facility] [address] Sep, [address] [place] [address] [facility] [address] [facility] [facility] [address] Sep, [place] [address] [facility] [address] [facility] [address] Sep, [place] [address] [facility] Sep, [place] [address] [facility] [address] [facility] Sep, [place] [address] [facility] [address] [facility] [facility] Aug, [place] [address] [facility] [address] [place] Aug, [facility] [place] [address] [facility] [address] Aug, [facility] [address] SURGERY [address] [facility] Aug, [place] [address] SURGERY [address] [facility] Aug, [place] [address] [facility] [address] [facility] Aug, [place] [address] ORTHOPEDIC OFFICE [address] [facility] Aug, Pre-op exam Z01.818 [place] [address] [facility] [address] [facility] Aug, [place] [address] [facility] [address] [facility] Aug, [place] [address] [facility] [address] [facility] Aug, [place] [address] IMMUNIZATIONS No Known Immunizations SOCIAL HISTORY Qualifiers Date Former Smoker REASON FOR REFERRAL FUNCTIONAL STATUS PLAN OF CARE Activity Details Future Test PREV: DIABETIC FOOT EXAM 202 64635 VITAL SIGNS Height 68 in 2020-06-05 Height [...] 2 times a 1 cap(s) 12h 25 Sep, 21 days No t-Taki Hyclate hyclate day 2017 ng 100 mg Lantus 100 subcutaneously 22 24h Active units/mL daily [place] Active Ciclopirox Externally Twice 1 application 12h [...] For Report MR Lower Ext R w/o ([id number]) 2017-09-16 See Below For Report CR C-ARM [...] secondary to arterial acclusion., Most recent A1C 09/27/197.4, pt states he is here for DM [...] A1c 03/04/18 - 6.7, [facility] annually, f/u - bilateral leg edema, Pt [...] at wound center,lab work done 03/07/2018 @ [facility], Patient came in with tubigrip bilateral , wound clin est, wound clinest, Wound CTR-follow up, Wound CTR-follow up, Wound CTR-follow up, Peer to Peer w/ Dr. Espino, Wound CTR-follow up, Wound CTR-follow up, Fryer Operator Documentation, LAB, Wound CTR-follow up, Wound CTR-follow up, Wound CTR-follow up, Wound CTR-follow up, LAB, LAB, Wound CTR- follow up, Wound CTR-follow up, Wound CTR-follow up, Fryer Operator Documentation, [facility], Wound CTR-follow up, Wound CTR-follow up, Pull PICC Line, Wound CTR-follow up, Wound CTR-follow up, LAB, Still taking doxycycline 100mg? , Wound CTR-follow up, Wound CTR-follow up, Wound CTR-follow up, Fryer Operator Documentation, Wound CTR-follow up, Wound CTR-follow up, Call back, Fryer Operator Documentation, Fryer Operator Documentation, Fryer Operator Documentation, Wound CTR-follow up, WCC, Wound CTR-follow up, Wound CTR-follow up, labs, D/C planning, bailey smetatarsal amputation of right foot, LAB, LAB, Wound CTR-NEW Insurance Providers [facility] Health Member Patient Patient Patient Patient Patient Subscriber Subscriber Subscriber Group Insurance Plan Plan Plan Plan ID Relationship Address Phone Name Date of ID Name Date of No Type Insurance Insurance Insurance Coverage to Subscriber Address Phone Name Dates MEDICARE [address] MEDICARE self [place] [id number] [facility] [id number] SELF PAY [address] SELF PAY self [place] [id number] AFTER BLUE [place] AFTER BLUE [facility] [id number] [address] [place] [phone] OTHER [place] [id number] 1^MAIN [place] [id number] S-BLUE [phone] S-BLUE [place] [id number] [address] [address] [place] [address] [place]
--- OUTSIDE RECORDS SUMMARY | 2022-04-01 10:00 | XMS_ITS | Encounter Summary ---
:1945 Author Organization [facility] Address [facility] [place] [address] Care Team Providers Name Role Phone Lovely Vicente MD Primary Care Provider Reason for Visit Reason Comments Prior Authorization Entresto 24-26mg tablets Encounter Details Date Type Department Care Team Description 02/20/2022 Specialty Pharmacy [facility] [facility] [place] Smith Prior Authorization [facility] J (Entresto 24-26mg Drive tablets) [place] [id number] Social History Tobacco Use Types Packs/Day Years [...] Don Fatima Patient : 1945 Patient Address: [address] [place] [address] [place] [address] (home) Medication Name: ENTRESTO 24 MG-26 MG TABLET Medication ID: [id number] Patient Location: [facility] Patient Location Comment: Medication Strength Frequency Requested: Entresto 24-26mg tablets / One tablet twice daily Qty/Day Supply: New Start: New to Therapy Diagnosis & ICD-10 Code: Chronic systolic heart failure, I50.22 Subscriber Insurance: [employer] [facility] Subscriber Insurance Comment: Fax: Physician: LIZ CARRERA Physician Comment : PA Status: NO PA REQUIRED Insurance mandated Pharmacy: Unknown [facility]able at [facility]: Yes Insurance requirements/notes: None Copay: $119.01 (goes to coverage gap/odalys monteiro) Copay assistance: [employer] Copay assistance comment: If cost isn't affordable, then we'll suggest enrollment in the currently open [facility] Heart Failure zoila, which provides up to $1000 in copay assistance. If zoila closes, or doesn't work out, then the patient can attempt enrollment in the cashiers bussers food runners assistance program, the [employer] Patient Assistance [employer] (NPAF). At which point we'd refer to [facility] for assistance with enrollment. Pharmacy staff will [...] Dolan MD [facility] [address] [place], [place] [address] (Wo rk) 05/28/2022 Laboratory Appointment Lab 05/28/2022 Office Visit Cardiology Zulma Dolan MD [facility] [place] [id number] Liz Carrera PA [facility] [place] [address] 06/10/2022 Office Visit Dermatology Laura Scherer MD [facility] ER [address] [place], [place] [address] (Wo rk) documented as of this encounter Visit Diagnoses Not on filedocumented in this encounter Care Teams Slide Fastener Repairer Relationship Specialty Start Date End Date Lovely Vicente MD PCP - General 04/16/[address] [place] [address] documented as of this encounter
--- OUTSIDE RECORDS SUMMARY | 2022-04-01 10:00 | XMS_ITS | Encounter Summary ---
:1945 Author Organization [facility] [place] [address] Care Team Providers Name Role Phone Lovely Vicente MD Primary Care Provider Reason for Visit Auth/Cert Specialty Diagnoses / Procedures Referred By Contact Refer red To Contact Diagnoses ASCVD (arteriosclerotic cardiovascular disease) [I25.10] Vitaliy Nobles MD [facility] Procedures PRO PERC TRLUML CORONARY STENT W/ANGIO ONE ART/BRANCH CARDIAC CATHETERIZATION STENT PLACEMENT-SINGLE MAJOR CORONARY ARTERY OR [facility] [place] [address] Referral ID Status Reason Start Date Expiration Date Visits Requ ested Visits Authorized [id number] 1 1 Encounter Details Date Type Department Care Team Description 01/30/2022 Laboratory Lab 3L Katalina ASCVD (arterios clerotic Appointment [facility] cardiovas cular disease) [place] [address] Social History Tobacco Use Types Packs/Day Years [...] Zulma Dolan MD [facility] [place], [place] [address] (Wo rk) 05/28/2022 Laboratory Appointment Lab 05/28/2022 Office Visit Cardiology Zulma Dolan MD [facility] [place] [address] Liz Poole PA [facility] [place] [address] 06/10/2022 Office Visit Dermatology Laura Scherer MD [facility] DR TE[address] GR[address]DERMAT [place], [place] [address] (Wo rk) documented as of [...] (ABNORMAL) Differential, Automated (01/30/2022 7:19 AM EDT) [facility] gist Method Time Signature Neutrophils % 77.9 % [facility]OR[facility] Neutr Abs (ANC) 5.31 1.70 - [facility] 6.10 [facility] x10(3)/[facility] LABORATORY Lymphocytes % 12.0 % [facility] Lymphocytes Abs 0.8 (L) 0.9 - 3.2 [facility] x10(3)/[facility] LABORATORY Monocytes % 8.1 % [facility] Monocyte Abs 0.6 0.3 - 0.9 [facility] x10(3)/[facility] LABORATORY Eosinophils % 0.4 % [facility] Eosinophils Abs 0.0 0.0 - 0.4 [facility] x10(3)/[facility] LABORATORY Basophils % 0.6 % [facility] Basophils Abs 0.0 0.0 - 0.1 [facility] x10(3)/[facility] LABORATORY Immature Gran % 1.00 % [facility] Comment: Immature granulocytes(IG's)percentage an d absolute count will include metamyelocytes, myelocytes, and promyelo cytes. Blood smears from CBCs yielding IG's will be scanned manually for concor dance. If this scan disagrees with the automated IG or if promyelocytes are not ed, a manual differential will be performed. Melisa Gran Abs 0.07 (H) 0.00 - 0.04 x10(3)/[facility] LABORATORY Specimen Anatomical Collection Method Collection Time Receive d Time (Source) Location / / Volume Laterality Blood 01/30/2022 7:19 AM 7:21 EDT AM EDT Resulting Agency Comment Spec In Lab Zulma BROWN HEMATOLOGY ORDERABLES Performing Organization Address City/State/[place] [address] (ABNORMAL) Hemogram (01/30/2022 7:19 AM EDT) Analysis Performed At Patho logist Time Signature WBC 6.8 4.0 - 9.5 [facility] x10(3)/[facility] LABORATORY RBC 4.32 (L) 4.58 - [facility] 5.54 [facility] x10(6)/[facility] LABORATORY Hemoglobin 13.0 (L) 13.7 - [facility] 16.5 g/dL [facility] Hematocrit 39.8 (L) 40.5 - [facility] 48.5 % [facility] MCV 92.1 82.9 - [facility] 93.1 fL [facility] MCH 30.1 27.5 - [facility] 32.1 pg [facility]OR[facility] MCHC 32.7 32.0 - [place] [facility] 35.7 g/dL [facility] Platelets 172 145 - 357 [facility] x10(3)/[facility] LABORATORY RDWSD 54.5 (H) 36.0 - [place] [facility] 45.0 [facility] LABORATORY RDWCV 16.2 (H) 11.4 - [facility] 13.8 % [facility] MPV 9.0 7.6 - 12.9 [facility] LABORATORY nRBC % Auto 0.0 % [facility] nRBC Abs Auto 0.000 0.000 - [facility] 0.000 [facility] x10(3)/[facility] LABORATORY Specimen Anatomical Collection Method Collection Time Receive d Time (Source) Location / / Volume Laterality Blood 01/30/2022 7:19 AM 7:21 EDT AM EDT Resulting Agency Comment Spec In Lab Zulma BROWN HEMATOLOGY ORDERABLES Performing Organization Address City/State/[place] [address] (ABNORMAL) Basic Metabolic Panel (non-fasting) (01/30/2022 7:19 AM EDT) P athologist Signature Glucose Lvl 237 (H) 65 - 199 [facility] mg/dL [facility] Comment: Diabetes: >=200 mg/dL plus symp toms BUN 34 (H) 10 - 20 mg/dL [facility] Creatinine 1.45 0.80 - 1.50 mg/dL [facility] LABORATORY [...] 107 mmol/L [facility] CO2 30 22 - 31 mmol/L [facility] Anion Gap 11 5 - 15 mmol/L [facility] Calcium 9.5 8.5 - 10.5 mg/dL [facility] Estimated GFR 50 (L) >=60 mL/min/1.73 m?? [facility] [...] Organization Address City/State/ZIP Code Phon e Number [place] [phone] documented in this encounter Visit Diagnoses Diagnosis ASCVD (arteriosclerotic cardiovascular d isease) Unspecified cardiovascular disease documented in this encounter Care Teams Second Facing Baster Relationship Specialty Start Date End Date Lovely Vicente MD PCP - General 04/16/[address] [place] [address] documented as of this encounter
--- OUTSIDE RECORDS SUMMARY | 2022-04-01 10:00 | XMS_ITS | Encounter Summary ---
:1945 Author Organization [facility] [place] [address] Care Team Providers Name Role Phone Lovely Vicente MD Primary Care Provider Encounter Details Date Type Department Care Team Description 02/24/2022 Notes Only [place] [address] Social History Tobacco Use Types Packs/Day [...] return to the Medication Assistance Program. The [facility] office will follow up with the patient in 5 business days to see if the patient has received the application and if they have any questions. documented in this encounter Plan of Treatment Upcoming Encounters Date Type Specialty Care Team Description 05/28/2022 Appointment Cardiology Zulma Dolan MD [facility] [address] [place], [place] [address] (Wo rk) 05/28/2022 Laboratory Appointment Lab 05/28/2022 Office Visit Cardiology Zulma Dolan MD [facility] [place] [address] Liz Poole PA [facility] [place] [address] 06/10/2022 Office Visit Dermatology Larua Scherer MD [facility] [address] TEJA [address] [place], [place] [address] (Wo rk) documented as of this encounter Visit Diagnoses Not on filedocumented in this encounter Care Teams Shoe Reconditioner Relationship Specialty Start Date End Date Lovely Vicente MD PCP - General 04/16/[address] [place] [address] documented as of this encounter
--- OUTSIDE RECORDS SUMMARY | 2022-04-01 10:00 | XMS_ITS | Encounter Summary ---
:1945 [place] [address] Care Team Providers Name Role Phone Lovely Vicente MD Primary Care Provider Reason for Visit Reason Onset Date Comments Follow-up 03/06/2022 Dave Bueno Encounter Details Date Type Department Care Team Description 03/06/2022 Telephone Cardiology at [facility] Martha Comer, Follow-up ([facility] Start) [place] [address] Social History Tobacco Use Types Packs/Day Years Used Date Former Smoker Cigarettes 3 5 Quit: 07/26/18 69 Smokeless Tobacco: Never Used Alcohol Use Standard Drinks/Week Comments No 0 (1 standard drink = 0.6 oz pure alcoho l) Sex Assigned at Date Recorded Not on file documented as of this encounter Miscellaneous Notes Telephone Encounter - Matrha Comer, RN - 03/06/2022 9:43 AM EDT [...] pt had gotten his labs done at [facility] yesterday. Results received, scanned and entered into [...] Dolan MD [facility] [address] [place] [address] (Wo rk) 05/28/2022 Laboratory Appointment Lab 05/28/2022 Office Visit Cardiology Zulma Dolan MD [facility] [place] [address] Liz Poole PA [facility] [place] [address] 06/10/2022 Office Visit Dermatology Laura Scherer MD [facility] DR TE[address] [place], [place] [address] [...] [address] [place] [address] documented as of this encounter
--- OUTSIDE RECORDS SUMMARY | 2022-04-01 10:00 | XMS_ITS | Encounter Summary ---
:1945 Author Organization [facility] [place] [address] Care Team Providers Name Role Phone Lovely Vicente MD Primary Care Provider Encounter Details Date Type Department Care Team Description 02/23/2022 Refill Cardiology at [facility] Liz Poole PA [facility] [place] [address] Cardiology Dept [phone] [place], [place] [address] (Wo rk) Social History Tobacco [...] Oneill RPH Transfer of Services Don Fatima [address] [place] [address] [place] [address] Telephone Information: Work Phone Not on file. The [facility] has received a prescription for Entresto for patient Mr. Don Fatima 76 y.o. (1945). The patient requests the prescription to be filled with [facility]. We spoke to patient to notify of this change and to provide number to reach the new filling pharmacy. A copyof patient's medication profile was offered to the accepting pharmacy. Additional instructions provided to patient about transfer: no The patient has been advised to call the [facility] at [phone] with any questionsor concerns on this referral. Thank you, Oxana Oneill RPH 02/23/22 4:26 PM Patient understands no changes to current drug regimen were made at this time. documented in this encounter Plan of Treatment Upcoming Encounters Date Type Specialty Care Team Description 05/28/2022 Appointment Cardiology Zulma Dolan MD [facility] [place], [place] [address] (Wo rk) 05/28/2022 Laboratory Appointment Lab 05/28/2022 Office Visit Cardiology Zulma Dolan [place] [address] Liz Poole PA [facility] [place] [address] 06/10/2022 Office Visit Dermatology Laura Scherer MD [facility] DR TEJA GR-DERMAT [place], [place] [address] (Wo rk) documented as of this encounter Visit Diagnoses Not on filedocumented in this encounter Care Teams Sales Negotiator Relationship Specialty Start Date End Date Lovely Vicente MD PCP - General 04/16/[address] [place] [address] documented as of this encounter
--- OUTSIDE RECORDS SUMMARY | 2022-04-01 10:00 | XMS_ITS | Clinical Summary ---
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; ASHD (arteriosc lerotic heart disease) 01/28/2022 Orders Only Cardiology GERARD GannonVD (arterios clerotic STEPHANIE Maya cardiovascular disease) 01/28/2022 Telephone Cardiology Chitra Angela Advice Only A, RN 12/30/2021 Notes Only Cardiology Rebeka Deluca, [facility] from Last 3 Months Immunizations Name Administration [...] Description 05/28/2022 Appointment Cardiology Zulma Dolan MD [facility] [address] [place] [address] (Wo rk) 05/28/2022 Laboratory Appointment Lab 05/28/2022 Office Visit Cardiology Zulma Dolan MD [facility] [place] [address] Liz Poole PA [facility] [place] [address] 06/10/2022 Office Visit Dermatology Laura Scherer MD [facility] [address]DERMAT [place], [place] [address] (Wo rk) Health Maintenance Due Date Last Done Comments Covid-19 Vaccine (#1) 1950 Pneumoccocal Vaccine: 65+ (1 - PCV) 1952 Hepatitis C Screening 1964 Tdap adult 1965 Tetanus vaccine 1965 Zoster vaccine (1 of 2) 1996 Colonoscopy 01/16/2019 01/16/2014, 01/16/2014 Influenza (Flu) vaccine (1 of 1 - 03/26/2022 03/29/2013, Influenza standard series) Medical Devices Implanted Type Area Seo Strategist Device Shelf Model / Identifier Expiration Serial / Date Lot Cable,Cut,Edg,Blnt,Ss,3tpr ([id number]) - [id number] IMPLANTS Midline: [employer] 04/01/2022 [id number] / Implanted: Qty: 4 on 07/07/2017 by Yuan Retana MD at [facility] [employer] - / [id number] Procedures Procedure Name Priority Date/Time Associated Diagnosis [...] (03/05/2022 7:04 AM EDT)Only the most recent of4 resultswithin [...] (03/05/2022 12:00 AM EDT)Only the most recent of2 resultswithin the time period is included. Narrative This result has an attachment that is no t available. Unknown MEDIA MGR SCAN EXT ORDR/RSLT (ABNORMAL) Hemogram (02/19/2022 8:06 AM EDT)Only the most recent of3 results within the time period is included. Analysis Performed At Patho logist Time Signature WBC 7.2 4.0 - 9.5 [facility] x10(3)/[facility] LABORATORY RBC 4.41 (L) 4.58 - [facility] 5.54 [facility] x10(6)/[facility] LABORATORY Hemoglobin 13.2 (L) 13.7 - [place] [facility] 16.5 g/dL [facility] LABORATORY Hematocrit 40.9 40.5 - [place] 48.5 % [facility] LABORATORY MCV 92.7 82.9 - [place] [facility] 93.1 [facility] LABORATORY MCH 29.9 27.5 - [place] 32.1 pg [facility] LABORATORY MCHC 32.3 32.0 - [place] 35.7 g/dL [facility] LABORATORY Platelets 191 145 - 357 [facility] x10(3)/[facility] LABORATORY RDWSD 53.6 (H) 36.0 - [place] [facility] 45.0 [facility] LABORATORY RDWCV 15.6 (H) 11.4 - [place] [facility] 13.8 % [facility] LABORATORY MPV 8.7 7.6 - 12.9 [facility] LABORATORY nRBC % Auto 0.0 % [facility] LABORATORY nRBC Abs Auto 0.000 0.000 - [facility] 0.000 [facility] x10(3)/[facility] LABORATORY Specimen Anatomical Collection Method Collection Time Receive d Time (Source) Location / / Volume Laterality Blood 02/19/2022 8:06 AM 8:09 EDT AM EDT Resulting Agency Comment Spec In Lab Liz BROWN HEMATOLOGY ORDERABLES Performing Organization Address City/State/[place] [address] (ABNORMAL) Differential, Automated (02/19/2022 8:06 AM EDT)Only the most recent of3 resultswithin the time period is included. [facility] Method Time Signature Neutrophils % 76.0 % [facility] LABORATORY Neutr Abs (ANC) 5.49 1.70 - [facility] 6.10 [facility] x10(3)/[facility] LABORATORY Lymphocytes % 10.8 % [facility] LABORATORY Lymphocytes Abs 0.8 (L) 0.9 - 3.2 [facility] x10(3)/[facility] LABORATORY Monocytes % 10.2 % [facility] LABORATORY Monocyte Abs 0.7 0.3 - 0.9 [facility] x10(3)/[facility] LABORATORY Eosinophils % 1.2 % [facility] LABORATORY Eosinophils Abs 0.1 0.0 - 0.4 [facility] x10(3)/[facility] LABORATORY Basophils % 0.8 % [facility] LABORATORY Basophils Abs 0.1 0.0 - 0.1 [facility] x10(3)/[facility] LABORATORY Immature Gran % 1.00 [...] Liz BROWN HEMATOLOGY ORDERABLES Performing Organization Address City/[facility]/ZIP Code Phon e Number [address] (ABNORMAL) pro-Brain Natriuretic Peptide (02/19/2022 8:06 AM EDT) P athologist Signature ProBNP 984 (H) <=449 pg/mL [facility] LABORATORY Specimen Anatomical Collection Method Collection Time Receive d Time (Source) Location / / Volume Laterality Blood 02/19/2022 8:06 AM 2 8:09 EDT AM EDT Resulting Agency Comment Spec In Lab Zulma Plunkett MD CHEMISTRY ORDERABLES Performing Organization Address City/[facility]/[place] [address] POCT Glucose (01/30/2022 1:41 PM EDT)Only the most recent of4 resultswithin the time period is included. P athologist Signature POC Glucose 148 65 - 199 [facility] mg/dL [facility] LABORATORY Comment: Supplemental ranges: <140 mg/dL before meals <180 mg/dL all other times of the day Specimen Anatomical Collection Method Collection Time Receive d Time (Source) Location / / Volume Laterality Blood 01/30/2022 1:41 PM 2 1:41 EDT PM EDT Vitaliy Nobles MD POINT OF CARE TEST ORDERABLE S Performing Organization Address City/[facility]/ZIP Code Phon e Number [address] EKG 12 Lead (01/30/2022 10:33 AM EDT) Component Value Ref Range Test Analysis Performed Pathologis t Method Time At Signature Ventricular rate 64 BPM MUSE SYSTEM Atrial Rate 64 BPM MUSE SYSTEM P-R Interval 162 ms MUSE SYSTEM QRS Duration 94 ms MUSE SYSTEM Q-T Interval 422 ms MUSE SYSTEM QTC Calculated 435 ms MUSE SYSTEM (Bezet) Calculated P Singer 41 degrees MUSE SYSTEM Calculated R Singer -27 degrees MUSE SYSTEM Calculated T Singer 104 degrees MUSE SYSTEM INTERPRETATION Normal sinus rhythm MUSE SYSTEM Anterolateral infarct (cited on or before 09-DEC-2021) Abnormal ECG When compared with ECG of 10-DEC-2021 11:17, No significant change was found Confirmed by Gary Perez ([id number]) on 01/30/2022 5:57:5 2 PM Specimen Anatomical [...] Laterality Volume Narrative 01/30/2022 2:09 PM EDT ?[facility] ? Cardiac Cathete rization/Intervention Report ? Patient Name: KushalDon. ? Procedure Date: 01/30/2022 ? A #: [id number] ? Primary Physician: Nobles, Vitaliy P ? Case #: [id number] ? File Name: [id number] ? Catheterization Order Number: [id number] ? [facility] ?Endless Bed [facility] ? Final Report [place], [place] ? Patient Name: ? Don E. Stewa rt ? ID#: ?[id number] ? : ?1945 ? Procedure Date: ? January 30, 2022 ? Case #: ? [id number] ? Room: ? 1 ? Case Physician: ? Fabian Lopez. ?Start: ?08:54 ?Fellow: ? Eddi Elizabeth Jr., [...] patient was ?designated as ASA Class III. [facility] clinical frailty scale is 5: Mildly [...] procedure was Urgent. The indication for ?the seed analysis laboratory assistant visit is stable kn own [...] an d a 3.[address] [place] [address] ??20 Mhz ?using Manual pullback. ??Imagin [...] ?? A premounted 2.00 x 26 mm Eva [place] (TUCKER) ? was deployed wi th a [...] Wedelivered along 2.0 x 26 mm HARDEEP [place] ? TUCKER stent and p ositioned it [...] dose administered prior to arrival in the seed analysis laboratory assistant. ?Recommended anti-platelet/anti- thrombotic regimen: ?Continue aspirin 81 mg daily fo r 1 month then stop. Restart aspirin 81 mg ?daily in 12 months and continue unless contraindicated. ?Continue clopidogrel 75 mg goemz y for 12 months then stop. ?Start warfarin to INR of 2.0-2. 5 now and continue for indefinitely. ?These recommendations are made at the time of the intervention. Patient ?and provider preferences or a c hanging clinical situation may require ?modification of this regimen. C onsult [facility] Interventional Cardiology for ?questions. ?The 1 year [...] using a 2.0 x 26 mm HARDEEP [place] TUCKER stent. ?This completes the revasculariz ation [...] Procedure Note Vitaliy Nobles MD - 03/06/2022 [facility] Cardiac Catheterization/Intervention Re port Patient Name: Don Fatima Procedure Date: 01/30/2022 A #: [id number] Primary Physician: Vitaliy Nobles Case #: [id number] File Name: [id number] Catheterization Order Number: [id number] [facility] Endless Bed [facility] Final Report [place], [place] Patient Name: Don Fatima ID#: [...] was designated as ASA Class III. The [facility] c linical frailty scale is 5: [...] e was Urgent. The indication for the seed analysis laboratory assistant visit is stable known CAD. Chest pain symptom assessment was: Typical Angina. Technique: A 6 SLFr sheath was inserted in the [facility] radial artery utilizing the Seldinger technique. [...] catheter and a 3.[address] 20 Mhz using Manual pullback. Imaging [...] A premounted 2.00 x 26 mm Hardeep [place] (TUCKER) was deployed with a maximum inflation [...] along 2. 0 x 26 mm HARDEEP [place] TUCKER stent and positioned it at the [...] administered prior t o arrival in the seed analysis laboratory assistant. Recommended anti-platelet/anti-thrombot ic regimen: Continue [...] modification of this regimen. Consult D [facility] Interventional Cardiology for questions. The 1 year [...] using a 2.0 x 26 mm HARDEEP [place] TUCKER stent. 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
--- OUTSIDE RECORDS SUMMARY | 2022-04-01 10:00 | XMS_ITS | Encounter Summary ---
:1945 Author Organization [facility] [place] [address] Care Team Providers Name Role Phone Lovely Vicente MD Primary Care Provider Reason for Visit Reason Onset Date Comments Follow-up 02/23/2022 Medication adjustmen t and new med Encounter Details Date Type Department Care Team Description 02/23/2022 Telephone Cardiology at [facility] Martha Comer, Follow-up ([facility] RN adjustbrandon t and new med) [place] [address] Social History Tobacco Use Types Packs/Day [...] order for BMP and sent to [facility]. will call [facility] to make an appointment for [...] tablet) daily. She will correct his pill community planner to the new dose. Will need to check with STEPHANIE Poole about repeat BMP to recheck K+ level. If yes he will get the test done at [facility]. They are aware that he will need to make an appt at [facility] to get the test done. [...] if he qualifies for assistance from the [employer]. She is thankful for the assistance, as he is taking insulin that is very expensive too. Instructed to call this selling underwriter, if he does qualify for assistance from [employer] and that he has gotten the medication [...] Zulma Dolan MD [facility] [place], [place] [address] (Wo rk) 05/28/2022 Laboratory Appointment Lab 05/28/2022 Office Visit Cardiology Zulma Dolan MD [facility] [place] [address] Liz Poole PA [facility] [place] [address] 06/10/2022 Office Visit Dermatology Laura Scherer MD [facility] [address] [place], [place] [address] (Wo rk) documented as of this encounter Visit Diagnoses Not on filedocumented in this encounter Care Teams Retail Department Reset Relationship Specialty Start Date End Date Lovely Vicente MD PCP - General 04/16/[address] [place] [address] documented as of this encounter
--- OUTSIDE RECORDS SUMMARY | 2022-04-01 10:00 | XMS_ITS | Encounter Summary ---
:1945 Author Organization [facility] [place] [address] Care Team Providers Name Role Phone Lovely Vicente MD Primary Care Provider Encounter Details Date Type Department Care Team Description 03/26/2022 Office Visit Cardiology at [facility] Vitaliy Nobles MD Chronic systolic heart failure; [facility] ONE MEDICAL ASCVD (ar teriosclerotic cardiovascular disease); [facility] Cardiomyopathy, ischemic [place], [place] CARDIOLOGY [address] [place] [address] [phone] Social History Tobacco Use Types Packs/Day Years [...] note were not included. [facility] [place] [address] CARDIOLOGY OUTPATIENT CLINIC VISIT [facility] Don Mccollum Kushal 03/26/2022 Referring Providers: MD Jules Cr Joyce, MD [address] [place] [id number] CHIEF COMPLAINT: I am doing well CARDIAC-RELEVANT [...] using a 2.0 x 26 mm ORION [place] TUCKER stent. This completes therevascularization of all [...] in [address] Lovely Vicente MD [address] [place] [phone] HISTORY OF PRESENT ILLNESS: Don Fatima is a 77 y.o. male patient presenting for an outpatient cardiology visit. Don Fatima??is a 76 y.o.??male??with h/o??CAD s/p [...] using a 2.0 x 26 mm ORION [place] TUCKER stent. This completes the revascularization of [...] SETUP performed by Manny Mcknight MD at [facility] MAIN OR ??? PRO AMPUTATION FOOT, TRANSMETATARSAL Right 08/09/2017 AMPUTATION, TRANSMETATARSAL (WRVU 12.71) performed by Yonathan Smith MD at [facility] OR ??? PRO CABG, ARTERIAL, SINGLE N/A 07/07/2017 @CABG, USING ARTERIAL GRAFT;SINGLE ARTERIAL GRAFT (WRVU 33.75) performed by Yuan Retana MD at [facility] OR ??? PRO CABG, ARTERY-VEIN, TWO N/A 07/07/2017 @CABG, TWO VENOUS GRAFTS & ARTERIAL GRAFT (WRVU 7.93) performed by Yuan Retana MD at [facility] OR ??? PRO COLONOSCOPY, REMV LESN, SNARE 01/16/2014 COLONOSCOPY, POLYPECTOMY, REMOVAL LESION BY SNARE performed by Nohemi Jaimes MD at [facility] ENDOSCOPY ??? PRO DRESSING CHANGE UNDER ANESTHESIA Right 08/11/2017 (MSURG) DRESSING CHANGE (FOR OTHER THAN IVAN) UNDER ANES. (WRVU 0.86) performed by Lamar Smith MD at [facility] MAIN OR ??? PRO ENDOSCOPY W/VIDEO-ASST VEIN HARVEST, CABG Right 07/07/2017 ENDOSCOPIC HARVEST VEIN(S) FOR CABG (WRVU 0.31) performed by Yuan Retana MD at [facility] MAIN OR ??? PRO PERC TRLUML CORONARY STENT W/ANGIO ONE ART/BRANCH N/A 01/30/2022 STENT PLACEMENT-SINGLE MAJOR CORONARY ARTERY OR BRANCH performed by Vitaliy Nobles MD at [facility] CATH LABS ??? PRO THYROIDECTOMY 03/28/2013 THYROIDECTOMY, TOTAL OR COMPLETE performed by Manny Mcknight MD at [facility] MAIN OR SOCIAL HISTORY: reports that [...] using a 2.0 x 26 mm ORION [place] TUCKER stent. This completes the revascularization of [...] Sincerely, Dr. Vitaliy Nobles MD [facility] Interventional Cardiology 03/26/2022 CC: Lovely Vicente MD [...] As per DC Summary - Admitted to [facility] on 12/08/21, transferred from [facility], respiratory distress with hypoxia 86% on [...] his PCP. He started [facility] rehab in [facility]. Monitored vitals/trends at home: Weight 191-194 [...] Antiplatelet (DAPT) Recommendations above ? TTE from [facility] 12/08/21 ?? 07/28/2019 Echocardiogram: SUMMARY: 1. [...] regurgitation present. 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 Post-op atrial fibrillation [id number] (CHF, HTN, DM, vascular disease, thromboembolism) Eliquis 7. PAD 08/06/2017: Right 1st, 2nd, 3rd toe amputation 08/11/2017: Left??femoral arterial access, RLE??angiogram, Balloon angioplasty of R PT 10/25/2017: right popliteal-pedal bypass at [facility] 8. Hypothyrodism S/p thyroidectomy for goiter Levothyroxine ?? Plan: 3 months in clinic with labs and TTE Liz Poole PA-C 03/26/2022 documented in this encounter Plan of Treatment Upcoming Encounters Date Type Specialty Care Team Description 05/28/2022 Appointment Cardiology Zulma Dolan MD [facility] [place] [address] (Wo rk) 05/28/2022 Laboratory Appointment Lab 05/28/2022 Office Visit Cardiology Zulma Dolan MD [facility] [place] [address] Liz Poole PA [facility] [place] [address] 06/10/2022 Office Visit Dermatology Laura Scherer MD [facility] DR [address] [place], [place] [address] (Wo rk) documented as of this encounter Visit Diagnoses Diagnosis Chronic systolic heart failure ASCVD (arteriosclerotic cardiovascular d isease) Unspecified cardiovascular disease Cardiomyopathy, ischemic Other specified forms of chronic ischemi c heart disease documented in this encounter Care Teams Traffic Engineer Relationship Specialty Start Date End Date Lovely Vicente MD PCP - General 04/16/[address] [place] [address] documented as of this encounter
--- OUTSIDE RECORDS SUMMARY | 2022-04-01 10:00 | XMS_ITS | Encounter Summary ---
:1945 Author Organization [facility] [place] [address] Care Team Providers Name Role Phone Lovely Vicente MD Primary Care Provider Encounter Details Date Type Department Care Team Description 02/24/2022 Orders Only Cardiology at [facility] Liz Poole, Chronic systolic heart [facility] [place] [address] Cardiology Dept [place], [place] [address] Social History Tobacco Use Types [...] Dolan MD [facility] [place] [address] [place], [place] [address] (Wo rk) 05/28/2022 Laboratory Appointment Lab 05/28/2022 Office Visit Cardiology Zulma Dolan MD [facility] [place] [address] Liz Poole PA [facility] [place] [address] 06/10/2022 Office Visit Dermatology Laura Scherer MD [facility] ER [address] [place], [place] [address] (Wo rk) documented as of this encounter Visit Diagnoses Diagnosis Chronic systolic heart failure documented in this encounter Care Teams Ceramic Plater Relationship Specialty Start Date End Date Lovely Vicente MD PCP - General 04/16/[address] [place] [address] documented as of this encounter
--- OUTSIDE RECORDS SUMMARY | 2022-04-01 10:00 | XMS_ITS | Encounter Summary ---
:1945 Author Organization [facility] [place] [address] Care Team Providers Name Role Phone Lovely Vicente MD Primary Care Provider Reason for Visit Reason Onset Date Comments Medication Refill 03/11/2022 Encounter Details Date Type Department Care Team Description 03/06/2022 Refill Cardiology at [facility] Liz Poole PA Medication Refill [facility] Jorge mcnamara [facility] [place] [address] Cardiology Dept [phone] [place], [place] [address] (Wo rk) Social History Tobacco [...] Care Team Description 05/28/2022 Appointment Cardiology Zulma Dolna MD [facility] er [place], [place] [address] (Wo rk) 05/28/2022 Laboratory Appointment Lab 05/28/2022 Office Visit Cardiology Zulma Dolan MD [facility] [place] [address] Liz Poole PA [facility] [place] [address] 06/10/2022 Office Visit Dermatology Laura Scherer MD [facility] ER [address] [place], [place] [address] (Wo rk) documented as of this encounter Visit Diagnoses Not on filedocumented in this encounter Care Teams Greenhouse Transplanter Relationship Specialty Start Date End Date Lovely Vicente MD PCP - General 04/16/[address] [place] [address] documented as of this encounter
--- OUTSIDE RECORDS SUMMARY | 2022-04-01 10:00 | XMS_ITS | Encounter Summary ---
:1945 Author Organization [facility] [place] [address] Care Team Providers Name Role Phone Lovely Vicente MD Primary Care Provider Encounter Details Date Type Department Care Team Description 02/19/2022 Laboratory Appointment Lab 3L [facility] [place] [id number] Social History Tobacco Use Types Packs/Day Years [...] Cardiology Zulma Dolan MD [facility] er [place], [place] [address] (Wo rk) 05/28/2022 Laboratory Appointment Lab 05/28/2022 Office Visit Cardiology Zulma Dolan MD [facility] [place] [address] Liz Poole PA [facility] [place] [address] 06/10/2022 Office Visit Dermatology Laura Scherer MD [facility] [address] [place] [address] (Wo rk) documented as of this encounter [...] (ABNORMAL) Differential, Automated (02/19/2022 8:06 AM EDT) [facility] gist Method Time Signature Neutrophils % 76.0 % [facility] Neutr Abs (ANC) 5.49 1.70 - [facility] 6.10 [facility] x10(3)/[facility] LABORATORY Lymphocytes % 10.8 % [facility] Lymphocytes Abs 0.8 (L) 0.9 - 3.2 [facility] x10(3)/[facility] LABORATORY Monocytes % 10.2 % [facility] Monocyte Abs 0.7 0.3 - 0.9 [facility] x10(3)/[facility] LABORATORY Eosinophils % 1.2 % [facility] Eosinophils Abs 0.1 0.0 - 0.4 [facility] x10(3)/[facility] LABORATORY Basophils % 0.8 % [facility] Basophils Abs 0.1 0.0 - 0.1 [facility] x10(3)/[facility] LABORATORY Immature Gran % 1.00 % HOLD[facility] [...] Organization Address City/State/[place] [address] (ABNORMAL) Hemogram (02/19/2022 8:06 AM EDT) Analysis Performed At Patho logist Time Signature WBC 7.2 4.0 - 9.5 [facility] x10(3)/[facility] LABORATORY RBC 4.41 (L) 4.58 - [facility] 5.54 [facility] x10(6)/[facility] LABORATORY Hemoglobin 13.2 (L) 13.7 - [facility] 16.5 g/dL [facility] LABORATORY Hematocrit 40.9 40.5 - [facility] 48.5 % [facility] LABORATORY MCV 92.7 82.9 - [facility] 93.1 [facility] LABORATORY MCH 29.9 27.5 - [facility] 32.1 pg [facility] LABORATORY MCHC 32.3 32.0 - [facility] 35.7 g/dL [facility]OR[facility]ORY Platelets 191 145 - 357 [facility] x10(3)/[facility] LABORATORY RDWSD 53.6 (H) 36.0 - [facility] 45.0 [facility] LABORATORY RDWCV 15.6 (H) 11.4 - [facility] 13.8 % [facility] LABORATORY MPV 8.7 7.6 - 12.9 [facility] LABORATORY nRBC % Auto 0.0 % [facility] nRBC Abs Auto 0.000 0.000 - [facility] 0.000 [facility] x10(3)/[facility] LABORATORY Specimen Anatomical Collection Method Collection Time Receive d Time (Source) Location / / Volume Laterality Blood 02/19/2022 8:06 AM 2 8:09 EDT AM EDT Resulting Agency Comment Spec In Lab Liz BROWN HEMATOLOGY ORDERABLES Performing Organization Address City/[facility]/[place] [address] (ABNORMAL) pro-Brain Natriuretic Peptide [...] Organization Address City/State/[place] [address] (ABNORMAL) Basic Metabolic Panel (non-fasting) (02/19/2022 8:06 AM EDT) P athologist Signature Glucose Lvl 139 65 - 199 [facility] mg/dL [facility] LABORATORY [...] 107 mmol/L [facility] CO2 31 22 - 31 mmol/L [facility] Anion Gap 11 5 - 15 mmol/L [facility] Calcium 9.7 8.5 - 10.5 mg/dL [facility] Estimated GFR 47 (L) >=60 mL/min/1.73 m?? [facility] Comment: This patient's estimated [...] Organization Address City/State/[place] [address] documented in this encounter Visit Diagnoses Diagnosis Chronic systolic heart failure documented in this encounter Care Teams Travograph Operator Relationship Specialty Start Date End Date Lovely Vicente MD PCP - General 04/16/[address] [place] [address] documented as of this encounter
--- OUTSIDE RECORDS SUMMARY | 2022-04-01 10:00 | XMS_ITS | Encounter Summary ---
:1945 Author Organization [facility] [place] [address] Care Team Providers Name Role Phone Lovely Vicente MD Primary Care Provider Reason for Referral Diagnostic Test (Routine) - New Request Specialty Diagnoses / Procedures Referred By Contact Refer red To Contact Cardiology Diagnoses Chronic systolic heart failure Liz Carrera PA [facility] Non-Inv Card Lab Procedures Echocardiogram Transthoracic [facility] [place] [address] [place] [address] Fax: Referral ID Status Reason Start Expiration Visits Visits Date Date Requested Authorized [id number] New Request Specialty 02/19/2022 02/19/2023 1 1 Service Requested Encounter Details Date Type Department Care Team Description 02/19/2022 Office Visit Cardiology at [facility] Liz Carrera, Chronic systolic heart [facility] [place] [address] Cardiology Dept [phone] [place], [place] [address] Social History Tobacco Use Types [...] As per DC Summary - Admitted to [facility] on 12/08/21, transferred from [facility], respiratory distress with hypoxia [...] mg PO daily in place of Lasix. Dennison is new for him and he will [...] his PCP. He started [facility] rehab in [facility]. Monitored vitals/trends at home: Weight 191-194 [...] Antiplatelet (DAPT) Recommendations above ? TTE from [facility] 12/08/21 ?? 07/28/2019 Echocardiogram: [...] regurgitation present. 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 Post-op atrial fibrillation [id number] (CHF, HTN, DM, vascular disease, thromboembolism) Eliquis 7. PAD 08/06/2017: Right 1st, 2nd, 3rd toe amputation 08/11/2017: Left??femoral arterial access, RLE??angiogram, Balloon angioplasty of R PT 10/25/2017: right popliteal-pedal bypass at [facility] 8. Hypothyrodism S/p thyroidectomy for goiter Levothyroxine [...] Description 05/28/2022 Appointment Cardiology Zulma Dolan MD [facility] [place], [place] [address] (Wo rk) 05/28/2022 Laboratory Appointment Lab 05/28/2022 Office Visit Cardiology Zulma Dolan MD [facility] [place] [address] Liz Carrera PA [facility] [place] [address] 06/10/2022 Office Visit Dermatology Laura Scherer MD [facility] DR [address] [facility] [place] [address] (Wo rk) Scheduled Orders Name Type Priority Associated Order Schedule Diagnoses Echocardiogram Echocardiography Routine Chronic systolic Expec vlad: Transthoracic heart failure 05/22/2022 (Approximate), Expires: 11/21/2022 documented as of this encounter Results (ABNORMAL) Basic Metabolic Panel (non-fasting) (02/19/2022 8:06 AM EDT) P athologist Signature Glucose Lvl 139 65 - 199 [facility] mg/dL [facility] Comment: Diabetes: >=200 mg/dL plus symp toms BUN 31 (H) 10 - 20 mg/dL [facility] Creatinine 1.53 (H) 0.80 - 1.50 mg/dL [facility] Sodium 142 135 - 145 mmol/L [facility] Potassium 5.4 (H) 3.5 - 5.0 mmol/L [facility] [...] LABORATORY Calcium 9.7 8.5 - 10.5 mg/dL [facility] Estimated GFR 47 (L) >=60 [...] Organization Address City/State/ZIP Code Phon e Number [place] [id number] H[address] LAB[address] (ABNORMAL) pro-Brain Natriuretic Peptide (02/19/2022 8:06 AM EDT) P athologist Signature ProBNP 984 (H) <=449 pg/mL [facility] Specimen Anatomical Collection Method Collection Time Receive d Time (Source) Location / / Volume Laterality Blood 02/19/2022 8:06 AM 8:09 EDT AM EDT Resulting Agency Comment Spec In Lab Zulma Plunkett MD CHEMISTRY ORDERABLES Performing Organization Address City/[facility]/[place] [address] documented in this encounter Visit Diagnoses Diagnosis Chronic systolic heart failure documented in this encounter Care Teams Charge Account Identification Clerk Relationship Specialty Start Date End Date Lovely Vicente MD PCP - General 04/16/[address] [place] [address] documented as of this encounter
--- OUTSIDE RECORDS SUMMARY | 2022-04-01 10:01 | XMS_ITS | Encounter Summary ---
:1945 Author Organization [facility] [address] Care Team Providers Name Role Phone Lovely Vicente MD Primary Care Provider Encounter Details Date Type Department Care Team Description 12/12/2021 Telephone Cardiology at [facility] [place] [address] Social History Tobacco Use Types Packs/Day [...] - 12/12/2021 11:36 AM EDT RTC to [email or web address] regarding pharmacists questions as to whether the [...] Dolan MD [facility] [address] [place] [address] (Wo rk) 05/28/2022 Laboratory Appointment Lab 05/28/2022 Office Visit Cardiology Zulma Dolan MD [facility] [place] [address] Liz Poole PA [facility] [place] [address] 06/10/2022 Office Visit Dermatology Laura Scherer MD [facility] DR [address] [place], [place] [address] (Wo rk) documented as of this encounter Visit Diagnoses Not on filedocumented in this encounter Care Teams Emt Relationship Specialty Start Date End Date Lovely Vicente MD PCP - General 04/16/[address] [place] [address] documented as of this encounter
--- OUTSIDE RECORDS SUMMARY | 2022-04-01 10:01 | XMS_ITS | Encounter Summary ---
:1945 Author Organization [facility] Address [facility] [place] [address] Care Team Providers Name Role Phone Lovely Vicente MD Primary Care Provider Reason for Visit Auth/Cert Specialty Diagnoses / Procedures Referred By Contact Refer red To Contact Diagnoses ASCVD (arteriosclerotic cardiovascular disease) [I25.10] Vitaliy Nobles MD [facility] Procedures PRO PERC TRLUML CORONARY STENT W/ANGIO ONE ART/BRANCH CARDIAC CATHETERIZATION STENT PLACEMENT-SINGLE MAJOR CORONARY ARTERY OR BRANCH [facility] [place] [address] Referral ID Status Reason Start Date Expiration Date Visits Requ ested Visits Authorized [id number] 1 1 Encounter Details Date Type Department Care Team Description 01/30/2022 Surgery Client Services Specialist Asa Coulter MD CARDIAC CATHETERIZATION [facility] [place] [address] [place] [address] [phone] (Wo rk) Social History Tobacco Use Types [...] and Clopidogrel. Please follow up with your software validation technician in the next 4-6 weeks. We [...] Murray RN - 01/30/2022 4:54 PM [facility]T [facility] Short Stay Unit Discharge Note All relevant [...] recent PCI presenting for staged PCI to [facility]. The pt states he has [...] recent PCI presenting for staged PCI to [facility]. The indications, expected benefits, and [...] referred him to cardiac rehab at [facility] last month per HF team. He was waiting until this intervention before starting the program. Reviewed managing angina /use of sl nitroglycerin. Given parameters for home exercise. 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 We discussed short walks several times per day. Will send [facility] his discharge summary from this admission. The patient should be contacted by the Program within 1- 2 weeks from discharge. Brief Op Note - Vitaliy Nobles MD - 01/30/2022 10:19 AM EDT Images from the original note were not included. [facility] [place] [address] [address] CORONARY ANGIOGRAM AND PERCUTANEOUS CORONARY INTERVENTION REPORT Patient: Don Fatima : 1945 MR number: [id number] Date of Service: 01/30/2022 Documentation Engineer: Vitaliy Nobles MD Fellow: KEYON Elizabeth INDICATION: [...] a long 2.0 x 26 mm HARDEEP York TUCKER stent and positioned it at the [...] using a 2.0 x 26 mm HARDEEP York TUCKER stent. This completes the revascularization ofall [...] MD [facility] er Dr [place] [address] (Wo rk) 05/28/2022 Laboratory Appointment Lab 05/28/2022 Office Visit Cardiology Zulma Dolan MD [facility] [place] [address] Liz Poole PA [facility] [place] [address] 06/10/2022 Office Visit Dermatology Laura Scherer MD [facility] ER DR TEJA GR[address]MAT [facility] [place] [address] (Wo rk) Scheduled Orders Name Type [...] LABORATORY Neutr Abs (ANC) 3.96 1.70 - [facility] 6.10 [facility] x10(3)/[facility] LABORATORY Lymphocytes % 16.3 % [facility] LABORATORY Lymphocytes Abs 0.9 0.9 - 3.2 [facility] x10(3)/[facility] LABORATORY Monocytes % 10.0 % [facility] LABORATORY Monocyte Abs 0.6 0.3 - 0.9 [facility] x10(3)/[facility] LABORATORY Eosinophils % 0.5 % [facility] LABORATORY Eosinophils Abs 0.0 0.0 - 0.4 [facility] x10(3)/[facility] LABORATORY Basophils % 0.5 % [facility] LABORATORY Basophils Abs 0.0 0.0 - 0.1 [facility] x10(3)/[facility] LABORATORY [...] 0.05 (H) 0.00 - 0.04 x10(3)/[facility] LABORATORY Specimen Anatomical Collection Method Collection Time Receive d Time (Source) Location / / Volume Laterality Blood 01/30/2022 2:12 PM 2 2:37 EDT PM EDT Resulting Agency Comment Spec In Lab Eddi Elizabeth Jr., MD HEMATOLOGY ORDERABLES Performing Organization Address City/State/[place] [address] (ABNORMAL) Hemogram (01/30/2022 2:12 PM EDT) Analysis Performed At Patho logist Time Signature WBC 5.5 4.0 - 9.5 [facility] x10(3)/[facility] LABORATORY RBC 4.30 (L) 4.58 - [facility] 5.54 [facility] x10(6)/[facility] LABORATORY Hemoglobin 12.7 (L) 13.7 - [place] 16.5 g/dL [facility] LABORATORY Hematocrit 39.4 (L) 40.5 - [place] 48.5 % [facility] LABORATORY MCV 91.6 82.9 - [place] 93.1 [facility] LABORATORY MCH 29.5 27.5 - [place] 32.1 pg [facility] LABORATORY MCHC 32.2 32.0 - [place] 35.7 g/dL [facility] LABORATORY Platelets 172 145 - 357 [place] x10(3)/[facility] LABORATORY RDWSD 54.5 (H) 36.0 - [place] 45.0 [facility] LABORATORY RDWCV 16.4 (H) 11.4 - [place] 13.8 % [facility] LABORATORY MPV 9.2 7.6 - 12.9 [place]HAOS[place] [facility] LABORATORY nRBC % Auto 0.0 % [facility] LABORATORY nRBC Abs Auto 0.000 0.000 - [place] [address] [facility] x10(3)/[facility] LABORATORY Specimen Anatomical Collection Method Collection Time Receive d Time (Source) Location / / Volume Laterality Blood 01/30/2022 2:12 PM 2 2:37 EDT PM EDT Resulting Agency Comment Spec In Lab Eddi Elizabeth Jr., MD HEMATOLOGY ORDERABLES Performing Organization Address City/State/[place] [address] (ABNORMAL) Basic Metabolic Panel (non-fasting) (01/30/2022 2:12 PM EDT) P athologist Signature Glucose Lvl 163 65 - 199 [facility] mg/dL [facility] LABORATORY Comment: Diabetes: >=200 mg/dL plus symp toms BUN 30 (H) 10 - 20 mg/dL [facility] LABORATORY Creatinine 1.47 0.80 - 1.50 mg/dL [facility] [...] Organization Address City/State/[place] [address] POCT Glucose (01/30/2022 1:41 PM EDT) P athologist Signature POC Glucose 148 65 - 199 [facility] mg/dL [facility] LABORATORY Comment: Supplemental ranges: <140 mg/dL before meals <180 mg/dL all other times of the day Specimen Anatomical Collection Method Collection Time Receive d Time (Source) Location / / Volume Laterality Blood 01/30/2022 1:41 PM 2 1:41 EDT PM EDT Vitaliy Nobles MD POINT OF CARE TEST ORDERABLE S Performing Organization Address City/State/ZIP Code Phon e Number [address] POCT Glucose (01/30/2022 10:48 AM EDT) P athologist Signature POC Glucose 193 65 - 199 [place] mg/dL [facility] LABORATORY Comment: Supplemental ranges: <140 mg/dL before meals <180 mg/dL all other times of the day Specimen Anatomical Collection Method Collection Time Receive d Time (Source) Location / / Volume Laterality Blood 01/30/2022 10:48 01/30/2022 AM EDT 10:48 AM EDT Vitaliy Sandra Nobles MD POINT OF CARE TEST ORDERABLE S Performing Organization Address [facility]/ZIP Code Phon e Number [address] EKG 12 Lead (01/30/2022 10:33 AM EDT) Component Value Ref Range Test Analysis Performed Pathologis t Method Time At Signature Ventricular rate 64 BPM MUSE SYSTEM Atrial Rate 64 BPM MUSE SYSTEM P-R Interval 162 ms MUSE SYSTEM QRS Duration 94 ms MUSE SYSTEM Q-T Interval 422 ms MUSE SYSTEM QTC Calculated 435 ms MUSE SYSTEM (Bezet) Calculated P [place] 41 degrees MUSE SYSTEM Calculated R [place] -27 degrees MUSE SYSTEM Calculated T [place] 104 degrees MUSE SYSTEM INTERPRETATION Normal sinus rhythm MUSE SYSTEM Anterolateral infarct (cited on or before 09-DEC-2021) Abnormal ECG When compared with ECG of 10-DEC-2021 11:17, No significant change was found Confirmed by Gary Perez ([id number]) on 01/30/2022 5:57:5 2 PM Specimen Anatomical Collection Method Collection Time Receive d Time (Source) Location / / Volume Laterality 01/30/2022 10:33 01/30/2022 5:57 AM EDT PM EDT Vitaliy Sandra Nobles MD ECG ORDERABLES Performing Organization Address City/[facility]/ZIP Code Phon e Number MUSE SYSTEM CARDIAC CATHETERIZATION (01/30/2022 10:16 AM EDT) Anatomical Region Laterality Modality Other Specimen (Source) Anatomical Location Collection Method / Collectio n Time Received Time / Laterality Volume Narrative 01/30/2022 2:09 PM EDT ?[facility] ? Cardiac Cathete rization/Intervention Report ? Patient Name: Don Fatima. ? Procedure Date: 01/30/2022 ? A #: [id number] ? Primary Physician: Nobles, Vitaliy P ? Case #: [id number] ? File Name: [id number] ? Catheterization Order Number: [id number] ? [facility] ? Final Report [place], [place] ? Patient Name: ? Don E. Stewa rt ? ID#: ?[id number] ? : ?1945 ? Procedure Date: ? [...] procedure was Urgent. The indication for ?the medical lab specialist visit is stable kn own [...] guiding catheter an d a 3.5 Fr [facility] [address] ??20 Mhz ?using Manual pullback. ??Imagin [...] A premounted 2.00 x 26 mm Hardeep York (TUCKER) ? was deployed wi a maximum [...] Wedelivered along 2.0 x 26 mm HARDEEP York ? TUCKER stent and p ositioned it [...] dose administered prior to arrival in the medical lab specialist. ?Recommended anti-platelet/anti- thrombotic regimen: ?Continue [...] require ?modification of this regimen. C onsult [facility] Interventional Cardiology for ?questions. ?The 1 year [...] using a 2.0 x 26 mm HARDEEP York TUCKER stent. ?This completes the revasculariz ation [...] 03/06/2022 [facility] Cardiac Catheterization/Intervention Re port Patient Name: Don Fatima Procedure Date: 01/30/2022 A #: [id number] Primary Physician: Vitaliy Nobles Case #: [id number] File Name: [id number] Catheterization Order Number: [id number] [facility] Final Report [place], [place] Patient Name: Don Fatima ID#: [...] e was Urgent. The indication for the medical lab specialist visit is stable known CAD. Chest pain [...] 1.5 guiding catheter and a 3.5 Fr [facility] [address] [address] 20 Mhz using Manual pullback. Imaging [...] A premounted 2.00 x 26 mm Hardeep York (TUCKER) was deployed with a maximum inflation [...] along 2. 0 x 26 mm HARDEEP York TUCKER stent and positioned it at the [...] administered prior t o arrival in the medical lab specialist. Recommended anti-platelet/anti-thrombot ic regimen: Continue aspirin 81 [...] using a 2.0 x 26 mm HARDEEP York TUCKER stent. This completes the revascularization of [...] POC Glucose 212 (H) 65 - 199 [facility] mg/dL [facility] LABORATORY Comment: Supplemental ranges: <140 mg/dL before meals <180 mg/dL all other times of the day Specimen Anatomical Collection Method Collection Time Receive d Time (Source) Location / / Volume Laterality Blood 01/30/2022 9:04 AM 2 9:04 EDT AM EDT Vitaliy Nobles MD POINT OF CARE TEST ORDERABLE S Performing Organization Address City/State/[place] [address] (ABNORMAL) POCT Glucose (01/30/2022 8:10 AM EDT) P athologist Signature POC Glucose 224 (H) 65 - 199 [facility] mg/dL [facility] LABORATORY Comment: Supplemental ranges: <140 mg/dL before meals <180 mg/dL all other times of the day Specimen Anatomical Collection Method Collection Time Receive d Time (Source) Location / / Volume Laterality Blood 01/30/2022 8:10 AM 2 8:10 EDT AM EDT Vitaliy Nobles MD POINT OF CARE TEST ORDERABLE S Performing Organization Address City/State/[place] [address] documented in this encounter Visit Diagnoses Diagnosis ASCVD (arteriosclerotic cardiovascular d isease) Unspecified cardiovascular disease 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 ASHD (arteriosclerotic heart disease) Coronary atherosclerosis of unspecified type of vessel, lime or graft ASCVD (arteriosclerotic cardiovascular d isease) Unspecified cardiovascular disease documented in this encounter Admitting Diagnoses Diagnosis CAD (coronary artery disease) Coronary atherosclerosis of unspecified type of vessel, lime or graft documented in this encounter Administered [...] Given 02/2022 10:11 AM EDT 100 mcg (PRESIDENTIAL HELICOPTER CREW CHIEF) ONCE PRN, Starting on Wed01/30/22 at 0927, [...] Procedure), Routine niCARdipine (Cardene) (100 mcg/mL) dilution (PRESIDENTIAL HELICOPTER CREW CHIEF) (CANCELED ) 0927 (Given - Provider: [...] (Intra-Procedure) documented in this encounter Care Teams Bilingual Medical Receptionist Relationship Specialty Start Date End Date Lovely Vicente MD PCP - General 04/16/[address] [place] [address] documented as of this encounter
--- OUTSIDE RECORDS SUMMARY | 2022-04-01 10:01 | XMS_ITS | Encounter Summary ---
:1945 Author Organization [facility] [place] [address] Care Team Providers Name Role Phone Lovely Vicente MD Primary Care Provider Encounter Details Date Type Department Care Team Description 01/28/2022 Orders Only Sleep Manager Zulma Finch ASCVD (art eriosclerotic [facility] cardiovascular disease) [facility] [place] [address] [place], [place] [phone] (Work) [phone] Social History Tobacco Use Types Packs/Day Years [...] MD [facility] [address] [place] [address] (Wo rk) 05/28/2022 Laboratory Appointment Lab 05/28/2022 Office Visit Cardiology Zulma Dolan MD [facility] [place] [address] Liz Poole PA [facility] [place] [address] 06/10/2022 Office Visit Dermatology Laura Scherer MD [facility] [address] [place], [place] [address] (Wo rk) documented as of this encounter Results (ABNORMAL) Basic Metabolic Panel (non-fasting) (01/30/2022 7:19 AM EDT) athologist Signature Glucose Lvl 237 (H) 65 - 199 [facility] mg/dL [facility] [...] Organization Address City/State/[place] [address] documented in this encounter Visit Diagnoses Diagnosis ASCVD (arteriosclerotic cardiovascular d isease) Unspecified cardiovascular disease documented in this encounter Care Teams Tombstone Erector Relationship Specialty Start Date End Date Lovely Vicente MD PCP - General 04/16/[address] [place] [address] documented as of this encounter
--- OUTSIDE RECORDS SUMMARY | 2022-04-01 10:01 | XMS_ITS | Encounter Summary ---
:1945 Author Organization [facility] [place] [address] Care Team Providers Name Role Phone Lovely Vicente MD Primary Care Provider Encounter Details Date Type Department Care Team Description 12/25/2021 Laboratory Appointment Lab 3L [facility] [place] [phone] Social History Tobacco Use Types Packs/Day Years [...] Description 05/28/2022 Appointment Cardiology Zulma Dolan MD [facility] er [place] [address] (Wo rk) 05/28/2022 Laboratory Appointment Lab 05/28/2022 Office Visit Cardiology Zulma Dolan MD [facility] [place] [address] Liz Poole PA [facility] [place] [address] 06/10/2022 Office Visit Dermatology Laura Scherer MD [facility] DR [address]MAT [place] [address] (Wo rk) documented as of this encounter [...] (ABNORMAL) Differential, Automated (12/25/2021 7:46 AM EDT) [facility] gist Method Time Signature Neutrophils % 82.6 % [facility] LABORATORY Neutr Abs (ANC) 9.37 (H) 1.70 - [facility] 6.10 [facility] x10(3)/[facility] LABORATORY Lymphocytes % 7.1 % [facility] LABORATORY Lymphocytes Abs 0.8 (L) 0.9 - 3.2 [facility] x10(3)/[facility] LABORATORY Monocytes % 8.8 % [facility] LABORATORY Monocyte Abs 1.0 (H) 0.3 - 0.9 [facility] x10(3)/[facility] LABORATORY Eosinophils % 0.4 % [facility] LABORATORY Eosinophils Abs 0.0 0.0 - 0.4 [facility] x10(3)/[facility] LABORATORY Basophils % 0.4 % [facility] LABORATORY Basophils Abs 0.0 0.0 - 0.1 [facility] x10(3)/[facility] LABORATORY Immature Gran % 0.70 % [...] Gran Abs 0.08 (H) 0.00 - 0.04 x10(3)/[facility] LABORATORY Specimen Anatomical Collection Method Collection Time Receive d Time (Source) Location / / Volume Laterality Blood 12/25/2021 7:46 AM 8:01 EDT AM EDT Resulting Agency Comment Spec In Lab Liz BROWN HEMATOLOGY ORDERABLES Performing Organization Address City/State/ZIP Code Phon e Number [place] [id number] HOSPITAL LABORATORY Drive (ABNORMAL) Hemogram (12/25/2021 7:46 AM EDT) Analysis Performed At Patho logist Time Signature WBC 11.4 (H) 4.0 - 9.5 [facility] x10(3)/[facility] LABORATORY RBC 4.23 (L) 4.58 - [facility]54 [facility] x10(6)/[facility] LABORATORY Hemoglobin 12.3 (L) 13.7 - [facility] 16.5 g/dL [facility] Hematocrit 37.7 (L) 40.5 - [facility] RY[facility] 48.5 % [facility] LABORATORY MCV 89.1 82.9 - [facility] 93.1 [facility] LABORATORY MCH 29.1 27.5 - [place] 32.1 pg [facility] LABORATORY MCHC 32.6 32.0 - [facility] 35.7 g/dL [facility] LABORATORY Platelets 215 145 - 357 [facility] x10(3)/[facility] LABORATORY RDWSD 49.8 (H) 36.0 - [place] [address] [facility] RDWCV 15.2 (H) 11.4 - [facility] 13.8 % [facility] LABORATORY MPV 9.2 7.6 - 12.9 [facility] LABORATORY nRBC % Auto 0.0 % [facility] LABORATORY nRBC Abs Auto 0.000 0.000 - [facility] 0.000 [facility] x10(3)/[facility] LABORATORY Specimen Anatomical Collection Method Collection Time Receive d Time (Source) Location / / Volume Laterality Blood 12/25/2021 7:46 AM 8:01 EDT AM EDT Resulting Agency Comment Spec In Lab Liz BROWN HEMATOLOGY ORDERABLES Performing Organization Address City/State/[place] [address] (ABNORMAL) Basic Metabolic Panel (non-fasting) (12/25/2021 7:46 AM EDT) P athologist Signature Glucose Lvl 272 (H) 65 - 199 [facility] mg/dL [facility] LABORATORY Comment: Diabetes: >=200 mg/dL plus symp toms BUN 62 (H) 10 - 20 mg/dL [facility] LABORATORY Creatinine 1.81 (H) 0.80 - [...] 15 mmol/L [facility] LABORATORY Calcium 9.4 8.5 - 10.5 [...] City/[facility]/[place] [address] (ABNORMAL) pro-Brain Natriuretic Peptide (12/25/2021 7:46 AM EDT) P athologist Signature ProBNP 1,380 (H) <=124 [facility] pg/mL [facility] LABORATORY Specimen Anatomical Collection Method Collection Time Receive d Time (Source) Location / / Volume Laterality Blood 12/25/2021 7:46 AM 2 8:01 EDT AM EDT Resulting Agency Comment Spec In Lab Zulma Plunkett MD CHEMISTRY ORDERABLES Performing Organization Address City/[facility]/ZIP [facility] [place] [address] documented in this encounter Visit Diagnoses Diagnosis Chronic systolic heart failure documented in this encounter Care Teams Vault Installer Relationship Specialty Start Date End Date Lovely Vicente MD PCP - General 04/16/[address] [place] [address] documented as of this encounter
--- OUTSIDE RECORDS SUMMARY | 2022-04-01 10:01 | XMS_ITS | Encounter Summary ---
:1945 Author Organization [facility] [place] [address] Care Team Providers Name Role Phone Lovely Vicente MD Primary Care Provider Encounter Details Date Type Department Care Team Description 12/24/2021 Orders Only Cleaner And Preparer Zulma Finch ASCVD (art eriosclerotic [facility] cardiovascular disease) [facility] [place] [address] [place], [place] [phone] (Work) [phone] Social History Tobacco Use Types Packs/Day Years [...] MD [facility] [address] [place] 0[address] (Wo rk) 05/28/2022 Laboratory Appointment Lab 05/28/2022 Office Visit Cardiology Zulma Dolan MD [facility] [place] [address] Liz Poole PA [facility] [place] [address] 06/10/2022 Office Visit Dermatology Laura Scherer MD [facility] [address] [place], [place] 0[address] (Wo rk) documented as of this encounter Visit Diagnoses Diagnosis ASCVD (arteriosclerotic cardiovascular d isease) Unspecified cardiovascular disease documented in this encounter Care Teams Light Industrial Supervisor Relationship Specialty Start Date End Date Lovely Vicente MD PCP - General 04/16/[address] [place] [address] documented as of this encounter
--- OUTSIDE RECORDS SUMMARY | 2022-04-01 10:01 | XMS_ITS | Encounter Summary ---
:1945 Author Organization [facility] [place] [address] Care Team Providers Name Role Phone Lovely Vicente MD Primary Care Provider Encounter Details Date Type Department Care Team Description 12/24/2021 Telephone Public Health at [facility] [place] [address] Social History Tobacco Use Types Packs/Day [...] Dolan MD [facility] Dr [place], [place] [address] (Wo rk) 05/28/2022 Laboratory Appointment Lab 05/28/2022 Office Visit Cardiology Zulma Dolan MD [facility] [place] [address] Liz Poole PA [facility] [place] [address] 06/10/2022 Office Visit Dermatology Laura Scherer MD [facility] ER DR [address] [place], [place] 0[address] (Wo rk) documented as of this encounter Visit Diagnoses Not on filedocumented in this encounter Care Teams Hydraulic Tester Relationship Specialty Start Date End Date Lovely Vicente MD PCP - General 04/16/[address] [place] [address] documented as of this encounter
--- OUTSIDE RECORDS SUMMARY | 2022-04-01 10:01 | XMS_ITS | Encounter Summary ---
:1945 Author Organization [facility] [place] [address] Care Team Providers Name Role Phone Lovely Vicente MD Primary Care Provider Reason for Visit Reason Onset Date Comments Medication Refill 12/12/2021 Torsemide Encounter Details Date Type Department Care Team Description 12/12/2021 Refill Cardiology at [facility] Janneth Padilla, Medication Refill [facility] STEPHANIE (Torsemide) [place] [address] CARDIOLOGY DEPT. [place], [place] [address] (Wo rk) Social History [...] Cardiology Zulma Dolan MD [facility] er [address] [place], [place] [address] (Wo rk) 05/28/2022 Laboratory Appointment Lab 05/28/2022 Office Visit Cardiology Zulma Dolan MD [facility] [place] [address] Liz Poole PA [facility] [place] [address] 06/10/2022 Office Visit Dermatology Laura Scherer MD [facility] ER [address] [place], [place] [address] (Wo rk) documented as of this encounter Visit Diagnoses Diagnosis Chronic systolic heart failure documented in this encounter Care Teams Rubber Insulator Relationship Specialty Start Date End Date Lovely Vicente MD PCP - General 04/16/[address] [place] [address] documented as of this encounter
--- OUTSIDE RECORDS SUMMARY | 2022-04-01 10:01 | XMS_ITS | Encounter Summary ---
:1945 Author Organization [facility] [place] [address] Care Team Providers Name Role Phone Lovely Vicente MD Primary Care Provider Reason for Visit Reason Onset Date Comments Advice Only 01/28/2022 Encounter Details Date Type Department Care Team Description 01/28/2022 Telephone Cardiology at [facility] Chitra Angela, [place] [address] Social History Tobacco Use Types Packs/Day [...] Fatima assists patient with medications. Number for photo lab specialist scheduling given and she will call them to verify this information Meds reviewed. As per our form from photo lab specialist Eliquis hold for 48 hours prior. Pt [...] MD [facility] Dr [place], [place] [address] (Wo rk) 05/28/2022 Laboratory Appointment Lab 05/28/2022 Office Visit Cardiology Zulma Dolan MD [facility] [place] [address] Liz Poole PA [facility] [place] [address] 06/10/2022 Office Visit Dermatology Laura Scherer MD [facility] DR [address] [place], [place] [address] (Wo rk) documented as of this encounter Visit Diagnoses Not on filedocumented in this encounter Care Teams Immigration Specialist Relationship Specialty Start Date End Date Lovely Vicente MD PCP - General 04/16/[address] [place] [address] documented as of this encounter
--- OUTSIDE RECORDS SUMMARY | 2022-04-01 10:01 | XMS_ITS | Encounter Summary ---
:1945 [place] [address] Care Team Providers Name Role Phone Lovely Vicente MD Primary Care Provider Encounter Details Date Type Department Care Team Description 12/30/2021 Notes Only [facility] [place] [address] Social History Tobacco Use Types Packs/Day [...] Failure team. DX: HFrEF. Referral placed to [facility] documented in this encounter Plan of Treatment Upcoming Encounters Date Type Specialty Care Team Description 05/28/2022 Appointment Cardiology Zulma Dolan MD [facility] [address] [place], [place] [address] (Wo rk) 05/28/2022 Laboratory Appointment Lab 05/28/2022 Office Visit Cardiology Zulma Dolan MD [facility] [place] [address] Liz Poole PA [facility] [place] [address] 06/10/2022 Office Visit Dermatology Laura Scherer MD [facility] ER [address] [place], [place] [address] (Wo rk) documented as of this encounter Visit Diagnoses Not on filedocumented in this encounter Care Teams Food Technician Relationship Specialty Start Date End Date Lovely Vicente MD PCP - General 04/16/[address] [place] [address] documented as of this encounter
--- OUTSIDE RECORDS SUMMARY | 2022-04-01 10:01 | XMS_ITS | Encounter Summary ---
:1945 Author Organization [facility] Address [facility] [place] [address] Care Team Providers Name Role Phone Lovely Vicente MD Primary Care Provider Reason for Visit Auth/Cert Specialty Diagnoses / Procedures Referred By Contact Refer red To Contact Diagnoses ASCVD (arteriosclerotic cardiovascular disease) [I25.10] Vitaliy Nobles MD [facility] Procedures PRO PERC TRLUML CORONARY STENT W/ANGIO ONE ART/BRANCH CARDIAC CATHETERIZATION STENT PLACEMENT-SINGLE MAJOR CORONARY ARTERY OR BRANCH [facility] [place] [address] Referral ID Status Reason Start Date Expiration Date Visits Requ ested Visits Authorized [id number] 1 1 Encounter Details Date Type Department Care Team Description 01/30/2022 Hospital Encounter Short Stay Unit at Vitaliy Nobles, CVD (arteriosclerotic cardiovascular disease); Barbara Blue MD 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 We have made a referral to cardiac rehab. Please see the attached instructions regarding care to your right wrist access site. AttachmentsThe following attachments cannot be sent through Care Everywhere. Coronary Angiogram: Post-op (Luxembourgish)documented in this encounter Medications at Time of [...] Murray RN - 01/30/2022 4:54 PM EDT [facility] Short Stay Unit Discharge Note All [...] recent PCI presenting for staged PCI to [facility]. The pt states he has [...] recent PCI presenting for staged PCI to [facility]. The indications, expected benefits, and [...] had referred him to cardiac rehab at [facility] last month per HF team. He was waiting until this intervention before starting the program. Reviewed managing angina /use of sl nitroglycerin. Given parameters for home exercise. 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 We discussed short walks several times per day. Will send [facility] his discharge summary from this admission. The patient should be contacted by the Program within 1- 2 weeks from discharge. Brief Op Note - Vitaliy Nobles MD - 01/30/2022 10:19 AM EDT Images from the original note were not included. [facility] [place] [address] [address] CORONARY ANGIOGRAM AND PERCUTANEOUS CORONARY INTERVENTION REPORT Patient: Don Fatima : 1945 MR number: [id number] Date of Service: 01/30/2022 Copyright Clerk: Vitaliy Nobles MD Fellow: KEYON Elizabeth [...] a long 2.0 x 26 mm [employer] TUCKER stent and positioned it at the [...] using a 2.0 x 26 mm [employer] TUCKER stent. This completes the revascularization ofall [...] Cardiology Zulma Dolan MD [facility] er [address] [place] [address] (Wo rk) 05/28/2022 Laboratory Appointment Lab 05/28/2022 Office Visit Cardiology Zulma Dolan MD [facility] [address] [place] [address] Liz Poole PA [facility] [place] [address] 06/10/2022 Office Visit Dermatology Laura Scherer MD [facility] [address] [facility] [place], [place] [address] (Wo rk) Scheduled Orders [...] P athologist Signature Neutrophils % 71.8 % [facility] LABOR[facility]ORY Neutr Abs (ANC) 3.96 1.70 - [facility] 6.10 [facility] x10(3)/[facility] LABORATORY Lymphocytes % 16.3 % [facility] Lymphocytes Abs 0.9 0.9 - 3.2 [facility] x10(3)/[facility] LABORATORY Monocytes % 10.0 % [facility] Monocyte Abs 0.6 0.3 - 0.9 [facility] x10(3)/[facility] LABORATORY Eosinophils % 0.5 % [facility] Eosinophils Abs 0.0 0.0 - 0.4 [facility] x10(3)/[facility] LABORATORY Basophils % 0.5 % [facility] Basophils Abs 0.0 0.0 - 0.1 [facility] x10(3)/[facility] LABORATORY Immature Gran % 0.90 % [facility] [...] Address City/State/[place] [address] (ABNORMAL) Hemogram (01/30/2022 2:12 PM EDT) Analysis Performed At Patho logist Time Signature WBC 5.5 4.0 - 9.5 [facility] x10(3)/[facility] LABORATORY RBC 4.30 (L) 4.58 - [facility] x10(6)/[facility] LABORATORY Hemoglobin 12.7 (L) 13.7 - [facility] 16.5 g/dL [facility] LABORATORY Hematocrit 39.4 (L) 40.5 - [facility] 48.5 % [facility] LABOR[facility]ORY MCV 91.6 82.9 - [facility] 93.1 [facility] LABORATORY MCH 29.5 27.5 - BARBARA RYAN 32.1 pg [facility] LABORATORY MCHC 32.2 32.0 - [facility] 35.7 g/dL [facility] LABORATORY Platelets 172 145 - 357 [facility] x10(3)/[facility] LABORATORY RDWSD 54.5 (H) 36.0 - [facility] 45.0 [facility] LABORATORY RDWCV 16.4 (H) 11.4 - [facility] 13.8 % [facility] LABORATORY MPV 9.2 7.6 - 12.9 [facility] LABORATORY nRBC % Auto 0.0 % [facility] nRBC Abs Auto 0.000 0.000 - [facility] 0.000 [facility] x10(3)/[facility] LABORATORY Specimen Anatomical Collection Method Collection Time Receive d Time (Source) Location / / Volume Laterality Blood 01/30/2022 2:12 PM 2 2:37 EDT PM EDT Resulting Agency Comment Spec In Lab Eddi Elizabeth Jr., MD HEMATOLOGY ORDERABLES Performing Organization Address City/State/[place] [address] (ABNORMAL) Basic Metabolic Panel (non-fasting) (01/30/2022 2:12 PM EDT) P athologist Signature Glucose Lvl 163 65 - 199 [facility] mg/dL [facility] LABOR[facility]ORY Comment: Diabetes: >=200 mg/dL plus symp toms BUN 30 (H) 10 - 20 mg/dL [facility] LABORATORY Creatinine 1.47 0.80 - 1.50 mg/dL [facility] OCK [facility] LABORATORY Sodium 140 135 - 145 mmol/L [...] Estimated GFR 49 (L) >=60 mL/min/1.73 m?? [facility] [...] Address City/State/[place] [address] POCT Glucose (01/30/2022 1:41 PM EDT) athologist Signature POC Glucose 148 65 - 199 [facility] mg/dL [facility] [...] [facility]/ZIP Code Phon e Number [address] POCT Glucose (01/30/2022 10:48 AM EDT) P athologist Signature POC Glucose 193 65 - 199 [facility] mg/dL [facility] LAB[facility]ORY Comment: Supplemental ranges: <140 mg/dL before meals <180 mg/dL all other times of the day Specimen Anatomical Collection Method Collection Time Receive d Time (Source) Location / / Volume Laterality Blood 01/30/2022 10:48 01/30/2022 AM EDT 10:48 AM EDT Vitaliy Sandra Nobles MD POINT OF CARE TEST ORDERABLE S Performing Organization Address [facility] [place] [address] EKG 12 Lead (01/30/2022 10:33 AM EDT) Component Value Ref Range Test Analysis Performed Pathologis t Method Time At Signature Ventricular rate 64 BPM MUSE SYSTEM Atrial Rate 64 BPM MUSE SYSTEM P-R Interval 162 ms MUSE SYSTEM QRS Duration 94 ms MUSE SYSTEM Q-T Interval 422 ms MUSE SYSTEM QTC Calculated 435 ms MUSE SYSTEM (Bezet) Calculated P [place] 41 degrees MUSE SYSTEM Calculated R [place] -27 degrees MUSE SYSTEM Calculated T [place] 104 degrees MUSE SYSTEM INTERPRETATION Normal sinus rhythm MUSE SYSTEM Anterolateral infarct (cited on or before 09-DEC-2021) Abnormal ECG When compared with ECG of 10-DEC-2021 11:17, No significant change was found Confirmed by Gary Perez ([id number]) on 01/30/2022 5:57:5 2 PM Specimen Anatomical Collection Method Collection Time Receive d Time (Source) Location / / Volume Laterality 01/30/2022 10:33 01/30/2022 5:57 AM EDT PM EDT Vitaliy Sandra Nobles MD ECG ORDERABLES Performing Organization Address City/[facility]/ZIP Code Phon e Number MUSE SYSTEM CARDIAC CATHETERIZATION (01/30/2022 10:16 AM EDT) Anatomical Region Laterality Modality Other Specimen (Source) Anatomical Location Collection Method / Collectio n Time Received Time / Laterality Volume Narrative 01/30/2022 2:09 PM EDT ?[facility] ? Cardiac Cathete rization/Intervention Report ? Patient Name: Kushal, Don E. ? Procedure Date: 01/30/2022 ? A #: [id number] ? Primary Physician: Nobles, Vitaliy P ? Case #: [id number] ? File Name: [id number] ? Catheterization Order Number: [id number] ? [facility] ? Final Report [place], [place] ? Patient Name: ? Don E. Stewa rt ? ID#: ?[id number] ? : ?1945 ? Procedure Date: ? [...] ?designated as ASA Class III. Th e [facility] clinical frailty scale is 5: Mildly [...] procedure was Urgent. 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 ??Imagin [...] ?? A premounted 2.00 x 26 mm [employer] (TUCKER) ? was deployed wi a maximum [...] Wedelivered along 2.0 x 26 mm [employer] ? TUCKER stent and p ositioned it [...] dose administered prior to arrival in the school laboratory technician. ?Recommended anti-platelet/anti- thrombotic regimen: ?Continue [...] may require ?modification of this regimen. [facility] Interventional Cardiology for ?questions. ?The 1 year [...] using a 2.0 x 26 mm [employer] TUCKER stent. ?This completes the revasculariz ation [...] Procedure Note Vitaliy Nobles MD - 03/06/2022 [facility] Cardiac Catheterization/Intervention Re port Patient Name: Don Fatima Procedure Date: 01/30/2022 A #: [id number] Primary Physician: Vitaliy Nobles Case #: [id number] File Name: [id number] Catheterization Order Number: [id number] [facility] Final Report [place], [place] Patient Name: Don Fatima ID#: [...] e was Urgent. The indication for the school laboratory technician visit is stable known CAD. [...] 1.5 guiding catheter and a 3.[address] [place] 20 Mhz using Manual pullback. Imaging [...] atmospheres. A premounted 2.00 x 26 mm [employer] (TUCKER) was deployed with a maximum inflation [...] along 2. 0 x 26 mm [employer] TUCKER stent and positioned it at the [...] administered prior t o arrival in the school laboratory technician. Recommended anti-platelet/anti-thrombot ic regimen: Continue [...] require modification of this regimen. Consult [facility] Interventional Cardiology for questions. The [...] using a 2.0 x 26 mm [employer] TUCKER stent. This completes the revascularization of [...] POC Glucose 212 (H) 65 - 199 [facility] mg/dL [facility] [...] Organization Address City/State/[place] [address] (ABNORMAL) POCT Glucose (01/30/2022 8:10 AM EDT) athologist Signature POC Glucose 224 (H) 65 - 199 [facility] mg/dL [facility] [...] Organization Address City/State/[place] [address] documented in this encounter Visit Diagnoses Diagnosis ASCVD (arteriosclerotic cardiovascular d isease) Unspecified cardiovascular disease 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 ASHD (arteriosclerotic heart disease) Coronary atherosclerosis of unspecified type of vessel, robinson or graft ASCVD (arteriosclerotic cardiovascular d isease) Unspecified cardiovascular disease documented in this encounter Admitting Diagnoses Diagnosis CAD (coronary artery disease) Coronary atherosclerosis of unspecified type of vessel, robinson or graft documented in this encounter Administered [...] Procedure), Routine niCARdipine (Cardene) (100 mcg/mL) dilution (PROGRAM MANAGER TRANSPORTATION) (CANCELED ) 0927 (Given - Provider: Vitaliy [...] (Intra-Procedure) documented in this encounter Care Teams Tree Pruner Relationship Specialty Start Date End Date Lovely Vicente MD PCP - General 04/16/[address] [place] [address] documented as of this encounter
--- OUTSIDE RECORDS SUMMARY | 2022-04-01 10:01 | XMS_ITS | Encounter Summary ---
:1945 Author Organization [place] [address] Care Team Providers Name Role Phone Lovely Vicente MD Primary Care Provider Reason for Referral Consultation (Routine) - Closed Specialty Diagnoses / Referred By Contact Referred To Contact Procedures Cardiac Rehabilitation Diagnoses Acute HFrEF (heart failure with reduced ejection fraction) Janneth Padilla, Cardiac Rehab, [address] [place] CARDIOLOGY DEPT. [address] [place] [address] Referral ID Status Reason Start Date Expiration Date Visits V isits Requested Authorized [id number] Closed Consult, 12/12/2021 12/12/2022 36 36 Test & Treat Reason for Visit Auth/Cert Specialty Diagnoses / Procedures Referred By Contact Refer red To Contact Diagnoses NSTEMI Procedures emerg ipi Referral ID Status Reason Start Date Expiration Date Visits Requ ested Visits Authorized [id number] 1 1 Encounter Details Date Type Department Care Team Description 12/08/2021 - Hospital Encounter Intermediate Cardiac Iker Cuevas MD [facility] [place] [address] Non-ST elevation myocardial infarction ( NSTEMI); 12/12/2021 Care Unit Ifeanyi Rene MD [facility] [place] [address] ST elevation myocardial infarction (STEM I), unspecified artery; [facility] Acute HFr EF (heart failure with reduced ejection fraction) [place] [address] Social History Tobacco Use Types Packs/Day Years [...] Don Fatima Patient Age: 76 y.o. Language: Croatian Race: White Ethnicity: Not [...] Peter PA-C Kelly LaFlamme PA-C Cardiovascular Medicine [phone] Discharge Diagnoses (Hospital Problems) and Secondary Diagnoses [...] 3.75 guiding catheter and a 3.5 Fr [place] 20 Mhz using Manual pullback. Imaging was successful. Image quality was good. The ostial LCX showed moderate diffuse atherosclerotic plaque with scattered three quadrant calcification. Measurements were performed after pre-dilation. Post Intervention: The stent was well expanded and apposed. Intravascular Ultrasound was performed in the distal LM using a 7 Fr EBU 3.75 guiding catheter and a 3.5 Fr [place] 20 Mhz using Manual pullback. Imaging was [...] may require modification of this regimen. Consult [facility] [...] mg PO daily in place of lasix. [place] is new for him and he will [...] be ~$24/mo; affordable per patient. Post [facility] he was started on Eliquis. He [...] appointments: During 8am-5pm Wednesday through Wednesday call [phone] to speak with a nurse in the cardiology clinic All other times call [phone] and ask to speak to the ballistics professor crack off person. Return to work: One week Driving: No driving for 48 hours after catheterization. Follow up Appointments: PCP Lovely Vicente MD [phone] to see patient at the end of December for annual check up. Patient to see Dr. Lorenzana at 1120 am at December 19 for a post hospital check up. Adobe Cq Developer Dr. De Oliveira to see you in [facility]. Left a message for office to set a date and time. Please call [phone] Nobles to see the patient for a same day cath in 2-3 weeks from now. Office to call with a date and time. For questions please call [phone] Home oxygen therapy: N/A Arrangements for VNA/home care: none Future Appointments and Orders Future Orders Complete By Expires Basic Metabolic Panel (non-fasting) [LAB15 Custom] 12/19/2021 (Approximate) 12/12/2022 Process Instructions: INCLUDES: Calcium, BUN, Creat, GFR, Glucose, Lytes Scheduling Instructions: Comments: Questions: Referral to Cardiac Rehab [QGB502 Custom] As directed Process Instructions: If no [...] appointments: During 8am-5pm Wednesday through Wednesday call [phone] to speak with a nurse in the cardiology clinic All other times call [phone] and ask to speak to the ballistics professor crack off person. Return to work: One week Driving: No driving for 48 hours after catheterization. Follow up Appointments: PCP Lovely Vicente MD [phone] to see patient at the end of December for annual check up. Patient to see Dr. Lorenzana at 1120 am at December 19 for a post hospital check up. Adobe Cq Developer Dr. De Oliveira to see you in [facility]. Left a message for office to set a date and time. Please call [phone] Nobles to see the patient for a same day cath in 2-3 weeks from now. Office to call with a date and time. For questions please call [phone] Home oxygen therapy: N/A Arrangements for VNA/home [...] Progress Note Patient Name: Don Fatima Service: SALESPERSON JEWELRY / PA Responsible Attending: Ifeanyi Truong MD [...] was given Lasix 80mg IV x1 in track laborer. Tolerated procedure well. Home today at [...] 1.13* 0.92* 0.89* Pertinent Radiographic/Diagnostic Results: R/[facility] 12/10/21 Hemodynamics: Right Heart Pressures [...] with MD Janneth Neville PA 12/12/2021 Pager [phone] Associated attestation - Ifeanyi Truong MD - [...] ratio for each meal) Desirae Jett APRN [facility] Endocrinology Diabetes Management Pager [phone] 20 minutes of this 35 minute visit [...] Progress Note Patient Name: Don Fatima Service: SALESPERSON JEWELRY / PA Responsible Attending: Iker Cuevas MD [...] was given Lasix 80mg IV x1 in track laborer. Tolerated procedure well. Review of Systems: [...] 1.13* 0.92* 0.89* Pertinent Radiographic/Diagnostic Results: R/[facility] 12/10/21 Hemodynamics: Right Heart Pressures [...] and answered his questions. Iker Cuevas MD [facility] Total time spent on review of records prior to visit, face to face time with patient during visit, documentation, and coordination of care with other clinicians: 25 minutes. . kIer Cuevas MD - 12/10/2021 12:30 PM EDT Images from the original note were not included. Inpatient Cardiology Progress Note Patient Name: Don Fatima Service: SALESPERSON JEWELRY / PA Responsible Attending: Iker Cuevas MD [...] was given Lasix 80mg IV x1 in track laborer. Tolerated procedure well. Review of Systems: [...] ??? heparin (porcine) infusion 1,600 Units/hr (12/09/21 8917) PRN Meds:ipratropium-albuteroL, senna-docusate, bisacodyL, sodium chloride 0.9 [...] TROPONINT 1.13* 0.92* 0.89* Pertinent Radiographic/Diagnostic Results: /[facility] 12/10/21 Hemodynamics: Right Heart Pressures [...] Discussed with MD Migdalia Peter PA-C Pager #[phone] 12/10/2021 Cardiology Attending Note I have seen [...] updated and given pictures. Iker Cuevas MD [facility] Total time spent on review of records prior to visit, face to face time with patient during visit, documentation, and coordination of care with other clinicians: 35 minutes. Iker Cuevas MD - 12/09/2021 7:28 AM EDT Images from the original note were not included. Inpatient Cardiology Progress Note Patient Name: Don Fatima Service: SALESPERSON JEWELRY / PA Responsible Attending: Iker Cuevas MD [...] ??? heparin (porcine) infusion 1,600 Units/hr (12/09/21 6343) PRN Meds:ipratropium-albuteroL, sodium chloride 0.9 % (flush), [...] Discussed with MD Migdalia Peter PA-C Pager #[phone] 12/09/2021 Cardiology Attending Note I have seen [...] < 70 -CPAP tonight Iker Cuevas MD [facility] Total time spent on review of records [...] MD at [facility]COPY ??? PRO DRESSING CHANGE UNDER [...] Mcknight MD at [facility] MAIN OR Significant Family History: Family [...] for ADRs. Trend troponins. Admission EKG. [facility] 12/09; consented. TTE. Telemetry monitoring, [...] #Diet-carb control; n.p.o. after midnight for [facility] #DVT prophy- heparin infusion #GI prophy- PPI Discussed with MD Morgan Peter PA-C APP2 pager [phone] 12/08/2021 Cardiology Attending Note I have seen [...] is type 1 due to graft or chitimacha coronary stenosis vs acute injury from CHF. 3. PAF: currrently in NSR. Have replaced warfarin with heparin 4. PAD: stable 5. DM: stable 6. CKD: will monitor and minimize contrast. Pt very appreciative of Dr. Yuan Retana's care in 2018. Will let him know patient is here. Iker Cuevas MD [facility] documented in this encounter Miscellaneous Notes Care [...] Type: *No Product type* / Secondary Insurance: [employer] [place] Prescription Coverage: Yes This plan was formulated [...] cath without complications. Migdalia Parker PA-C Pager #[phone] 12/10/2021 Initial Assessments - Nick Georges RN [...] COVID test: Lab Results Component Value Date [id number] Not Detected 12/08/2021 Past medical History: Past [...] spouse would be surrogate decision maker per [place] surrogate decision making law. (Only good for 180 days) Any patient receiving care at [facility] must abide by [place] law. The hierarchy for surrogate decision making [...] (i) The agent with financial power of district attorney or a conservator appointed in accordance [...] - standard, cane - straight Home Address: [address] [place] [address] [place] [address] Social & Family Supports: All names listed below confirmed with patient as current and correct Extended Emergency Contact Information Primary Emergency Contact: Kisha Fatima Address: [address] [place] [address] [place] [address] [facility] Mobile Relation: Spouse Secondary Emergency Contact: Elba Swenson Address: [address] Mobile Relation: Child Current Care Provided [...] / Secondary Insurance: [employer] [place] Prescription Coverage: Yes Preferred Pharmacy: [facility] [address] [address] - [place], [place] - [address] [place] [id number] [place] Status: Patient is a : unable to assess Primary Care Provider: Lovely Vicente MD [phone] Patient/Caregiver Goals of Treatment: Get out of here Potential Needs for Transition of Care: none Agency Referrals: none patient has used [facility] in the past Transportation: no concerns Transportation Anticipated: family or friend will provide Concerns to be Addressed: patient refuses services, discharge planning Assessment: Patient is admitted to [facility] Service pager [phone] for 76 y.o.??male??with h/o??CAD s/p 3vCABG (THOMPSON-LAD, [...] status on current unit. Nick Georges RN second facing baster, Office of Care Management Pager: [phone] Brief Op Note - Vitaliy Nobles MD - 12/10/2021 8:31 AM EDT Images from the original note were not included. [facility] [place] [address] [address] CORONARY ANGIOGRAM AND PERCUTANEOUS CORONARY INTERVENTION REPORT Patient: Don Fatima : 1945 MR number: [id number] Date of Service: 12/10/2021 Circus Supervisor: Vitaliy Nobles MD Fellow: [place] MD [...] a large 4.0 x 24 mm Synergy TUKCER stent in the proximal LCX lesion extending [...] Hold] heparin (porcine) infusion 1,600 Units/hr (12/09/21 9277) PRN: [SEP Hold] ipratropium-albuteroL, [SEP Hold] senna-docusate, [...] adjustment of insulin regimen and DM medications. 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 Monitoring - continue BG tid ac & hs Diet - low fat/low carb diet Exercise - weight-bearing exercise 30 min/day, as tolerated Thank you for allowing us to provide care for your patient Desirae Johnie QUINONES Endocrinology Pager [phone] 70 minutes of this 80 minute visit [...] to remain on Med/Surg floor, please page [phone] for any further questions or concerns. LANDON [...] for further details. STEPHANIE Rebolledo 12/08/2021 Pager [phone] documented in this encounter Plan of Treatment Upcoming Encounters Date Type Specialty Care Team Description 05/28/2022 Appointment Cardiology Zulma Dolan MD [facility] [place] [address] (Wo rk) 05/28/2022 Laboratory Appointment Lab 05/28/2022 Office Visit Cardiology Zulma Dolan MD [facility] [place] [address] Liz Poole PA [facility] [place] [address] 06/10/2022 Office Visit Dermatology Laura Scherer MD [facility] DR TEJA [facility] [place], [place] [address] (Wo rk) Scheduled Referrals Name [...] 215 (H) 65 - 199 [facility] mg/dL [facility] LABORATORY Comment: Supplemental ranges: <140 mg/dL before meals <180 mg/dL all other times of the day Specimen Anatomical Collection Method Collection Time Receive d Time (Source) Location / / Volume Laterality Blood 12/12/2021 7:42 AM 7:42 EDT AM EDT Ifeanyi Truong MD POINT OF CARE TEST ORDERABLE S Performing Organization Address City/State/[place] [address] (ABNORMAL) Differential, Automated (12/12/2021 4:51 AM EDT) athologist Signature Neutrophils % 75.4 % [facility] LABORATORY Neutr Abs (ANC) 5.95 1.70 - [facility] 6.10 [facility] x10(3)/[facility] LABORATORY Lymphocytes % 12.2 % [facility] LABORATORY Lymphocytes Abs 1.0 0.9 - 3.2 [facility] x10(3)/[facility] LABORATORY Monocytes % 9.5 % [facility] LABORATORY Monocyte Abs 0.8 0.3 - 0.9 [facility] x10(3)/[facility] LABORATORY Eosinophils % 1.8 % [facility] LABORATORY Eosinophils Abs 0.1 0.0 - 0.4 [facility] x10(3)/[facility] LABORATORY Basophils % 0.5 % [facility] LABORATORY Basophils Abs 0.0 0.0 - 0.1 [facility] x10(3)/[facility] LABORATORY Immature Gran % 0.60 % WHITE [...] Organization Address City/State/[place] [address] (ABNORMAL) Hemogram (12/12/2021 4:51 AM EDT) Analysis Performed At Patho logist Time Signature WBC 7.9 4.0 - 9.5 [facility] x10(3)/[facility] LABORATORY RBC 4.19 (L) 4.58 - [facility] 5.54 [facility] x10(6)/[facility] LABORATORY Hemoglobin 12.1 (L) 13.7 - [facility] 16.5 g/dL [facility] LABORATORY Hematocrit 36.7 (L) 40.5 - [facility] 48.5 % [facility] LABORATORY MCV 87.6 82.9 - [facility] 93.1 fL [facility] LABORATORY MCH 28.9 27.5 - [facility] 32.1 pg [facility] LABORATORY MCHC 33.0 32.0 - [facility] 35.7 g/dL [facility] LABORATORY Platelets 231 145 - 357 [facility] x10(3)/[facility] LABORATORY RDWSD 47.2 (H) 36.0 - [facility] SU 45.0 [facility] LABORATORY RDWCV 14.6 (H) 11.4 - [facility] 13.8 % [facility] LABORATORY MPV 9.5 7.6 - 12.9 [facility] LABORATORY nRBC % Auto 0.0 % [facility] LABORATORY nRBC Abs Auto 0.000 0.000 - [facility] 0.000 [facility] x10(3)/[facility] LABORATORY Specimen Anatomical Collection Method Collection Time Receive d Time (Source) Location / / Volume Laterality Blood 12/12/2021 4:51 AM 2 5:06 EDT AM EDT Resulting Agency Comment Spec In Lab Bijan Sun MD HEMATOLOGY ORDERABLES Performing Organization Address City/[facility]/[place] [address] (ABNORMAL) Prothrombin Time (12/12/2021 4:51 AM EDT) P athologist Signature PT 14.9 (H) 9.4 - 12.5 [facility] LABORATORY INR 1.3 [place] [...] City/[facility]/[place] [address] (ABNORMAL) BMP w/fasting Glucose (12/12/2021 4:51 AM EDT) athologist Signature Glucose 152 (H) 65 - 99 [facility] Fasting mg/dL [facility] LABORATORY Comment: ?Fasting* Glucose [...] ORDERABLES Performing Organization Address City/[facility]/ZIP [facility] Phon e Number [address] Magnesium (12/12/2021 4:51 AM EDT) P athologist Signature Magnesium 1.02 0.69 - 1.07 [facility] mmol/L [facility] LABORATORY Specimen Anatomical Collection Method Collection Time Receive d Time (Source) Location / / Volume Laterality Blood 12/12/2021 4:51 AM 2 5:06 EDT AM EDT Resulting Agency Comment Spec In Lab Iker Cuevas MD CHEMISTRY ORDERABLES Performing Organization Address [facility] Phon e Number [address] POCT Glucose (12/12/2021 3:43 AM EDT) P athologist Signature POC Glucose 138 65 - 199 [facility] mg/dL [facility] LABORATORY Comment: Supplemental ranges: <140 mg/dL before meals <180 mg/dL all other times of the day Specimen Anatomical Collection Method Collection Time Receive d Time (Source) Location / / Volume Laterality Blood 12/12/2021 3:43 AM 2 3:43 EDT AM EDT Iker Cuevas MD POINT OF CARE TEST ORDERABLE S Performing Organization Address City/State/[place] [address] POCT Glucose (12/11/2021 11:44 PM EDT) athologist Signature POC Glucose 124 65 - 199 [facility] mg/dL [facility] LABORATORY Comment: Supplemental ranges: <140 mg/dL before meals <180 mg/dL all other times of the day Specimen Anatomical Collection Method Collection Time Receive d Time (Source) Location / / Volume Laterality Blood 12/11/2021 11:44 12/11/2021 PM EDT 11:44 PM EDT Iker Cuevas MD POINT OF CARE TEST ORDERABLE S Performing Organization Address City/[facility]/[place] [address] (ABNORMAL) POCT Glucose (12/11/2021 8:12 PM EDT) athologist Signature POC Glucose 200 (H) 65 - 199 [facility] SU mg/dL [facility] LABORATORY Comment: Supplemental ranges: <140 mg/dL before meals <180 mg/dL all other times of the day Specimen Anatomical Collection Method Collection Time Receive d Time (Source) Location / / Volume Laterality Blood 12/11/2021 8:12 PM 2 8:12 EDT PM EDT Iker Cuevas MD POINT OF CARE TEST ORDERABLE S Performing Organization Address City/[facility]/[place] [address] (ABNORMAL) POCT Glucose (12/11/2021 6:50 PM EDT) athologist Signature POC Glucose 245 (H) 65 - 199 [facility] mg/dL [facility] LABORATORY Comment: Supplemental ranges: <140 mg/dL before meals <180 mg/dL all other times of the day Specimen Anatomical Collection Method Collection Time Receive d Time (Source) Location / / Volume Laterality Blood 12/11/2021 6:50 PM 2 6:50 EDT PM EDT Iker Cuevas MD POINT OF CARE TEST ORDERABLE S Performing Organization Address City/State/[place] [address] (ABNORMAL) POCT Glucose (12/11/2021 4:00 PM EDT) athologist Signature POC Glucose 383 (H) 65 - 199 [facility] mg/dL [facility] LABORATORY Comment: Supplemental ranges: <140 mg/dL before meals <180 mg/dL all other times of the day Specimen Anatomical Collection Method Collection Time Receive d Time (Source) Location / / Volume Laterality Blood 12/11/2021 4:00 PM 4:00 EDT PM EDT Iker Cuevas MD POINT OF CARE TEST ORDERABLE S Performing Organization Address City/[facility]/[place] [address] (ABNORMAL) POCT Glucose (12/11/2021 12:01 PM EDT) athologist Signature POC Glucose 342 (H) 65 - 199 [facility] mg/dL [facility] LABORATORY Comment: Supplemental ranges: <140 mg/dL before meals <180 mg/dL all other times of the day Specimen Anatomical Collection Method Collection Time Receive d Time (Source) Location / / Volume Laterality Blood 12/11/2021 12:01 12/11/2021 PM EDT 12:01 PM EDT Iker Cuevas MD POINT OF CARE TEST ORDERABLE S Performing Organization Address City/[facility]/[place] [address] COVID-19 PCR (12/11/2021 10:13 AM EDT) [facility] Method Time Signature SARS-CoV-2 Not Detected Not Detected [facility] RNA [facility] LABORATORY Comment: This result [...] diagnosis of COVID-19 is performed using the [employer]ian[employer] FRIEND S-CoV-2 Assay as authorized by the FDA Emergency Use Authorization (EUA). This EUA assay is intended for In-vitro Diagnostic (IVD) use with respiratory sp ecimens such as nasopharyngeal swabs collected from individuals during the ac terrence phase of infection. This assay is performed based on the instructions for use provided by [employer] and additional guidance provided by CDC and FDA. Testing is performed in the Clinical Genomics and Advanced Technolog y Laboratory within the Department of Pathology and Laboratory Medicine at [facility], certified under the Clinical Laboratory Improvement [...] fact sheets at the following FDA website: https://www.fda.gov/medical-devices/ncuqoomgdwn-nzsvudr-3568-jodpc-86-btmxagjvn- jou-ozrubtgcpmizxg-fzpwetu-devices/lwwfw-sjtcebnumna-zywx SARS-Cov-2 RNA Source SALESPERSON JEWELRY Swab [facility] LABORATORY Specimen (Source) Anatomical Collection Method Collection Time Re ceived Time Location / / Volume Laterality Nasopharyngeal Swab 12/11/2021 10:13 0503/2022 AM EDT 11:16 AM EDT Comment: Symptoms->Surveillance Resulting Agency Comment Spec In Lab Iker Cuevas MD MICROBIOLOGY - GENERAL ORDER [place] Performing Organization Address City/[facility]/[place] [address] POCT Glucose (12/11/2021 7:34 AM EDT) athologist Signature POC Glucose 198 65 - 199 [facility] mg/dL [facility] LABORATORY Comment: Supplemental ranges: <140 mg/dL before meals <180 mg/dL all other times of the day Specimen Anatomical Collection Method Collection Time Receive d Time (Source) Location / / Volume Laterality Blood 12/11/2021 7:34 AM 2 7:34 EDT AM EDT Iker Cuevas MD POINT OF CARE TEST ORDERABLE S Performing Organization Address City/[facility]/[place] [address] (ABNORMAL) POCT Glucose (12/11/2021 5:07 AM EDT) P athologist Signature POC Glucose 208 (H) 65 - 199 [facility] mg/dL [facility] LABORATORY Comment: Supplemental ranges: <140 mg/dL before meals <180 mg/dL all other times of the day Specimen Anatomical Collection Method Collection Time Receive d Time (Source) Location / / Volume Laterality Blood 12/11/2021 5:07 AM 2 5:07 EDT AM EDT Iker Cuevas MD POINT OF CARE TEST ORDERABLE S Performing Organization Address City/[facility]/[place] [address] (ABNORMAL) Differential, Automated (12/11/2021 4:28 AM EDT) [facility] Method Time Signature Neutrophils % 79.6 % [facility] LABORATORY Neutr Abs (ANC) 7.01 (H) 1.70 - [facility] 6.10 [facility] x10(3)/[facility] L LABORATORY Lymphocytes % 9.1 % [facility] LABORATORY Lymphocytes Abs 0.8 (L) 0.9 - 3.2 [facility] x10(3)/[facility] LABORATORY Monocytes % 9.2 % [facility] LABORATORY Monocyte Abs 0.8 0.3 - 0.9 [facility] x10(3)/[facility] LABORATORY Eosinophils % 1.3 % [facility] LABORATORY Eosinophils Abs 0.1 0.0 - 0.4 [facility] x10(3)/[facility] LABORATORY Basophils % 0.5 % [facility] LABORATORY Basophils Abs 0.0 0.0 - 0.1 [facility] x10(3)/[facility] LABORATORY Immature Gran % 0.30 [...] - 0.04 x10(3)/[facility] LABORATORY Specimen Anatomical Collection Method Collection Time Receive d Time (Source) Location / / Volume Laterality Blood 12/11/2021 4:28 AM 4:37 EDT AM EDT Resulting Agency Comment Spec In Lab Bijan Sun MD HEMATOLOGY ORDERABLES Performing Organization Address City/State/[place] [address] (ABNORMAL) Hemogram (12/11/2021 4:28 AM EDT) Analysis Performed At Patho logist Time Signature WBC 8.8 4.0 - 9.5 [facility] x10(3)/[facility] LABORATORY RBC 4.15 (L) 4.58 - [place] [facility] 5.54 [facility] x10(6)/[facility] LABORATORY Hemoglobin 11.9 (L) 13.7 - [facility] 16.5 g/dL [facility] LABORATORY Hematocrit 36.9 (L) 40.5 - [facility] 48.5 % [facility] LABORATORY MCV 88.9 82.9 - [facility] 93.1 [facility] LABORATORY MCH 28.7 27.5 - [facility] 32.1 pg [facility] LABORATORY MCHC 32.2 32.0 - [facility] 35.7 g/dL [facility] LABORATORY Platelets 211 145 - 357 [facility] x10(3)/[facility] LABORATORY RDWSD 48.3 (H) 36.0 - [facility] 45.0 [facility] LABORATORY RDWCV 14.8 (H) 11.4 - [facility] 13.8 % [facility] LABORATORY MPV 9.6 7.6 - 12.9 [facility] LABORATORY nRBC % Auto 0.0 % [facility] LABORATORY nRBC Abs Auto 0.000 0.000 - [facility] 0.000 [facility] x10(3)/[facility] LABORATORY Specimen Anatomical Collection Method Collection Time Receive d Time (Source) Location / / Volume Laterality Blood 12/11/2021 4:28 AM 2 4:37 EDT AM EDT Resulting Agency Comment Spec In Lab Bijan Sun MD HEMATOLOGY ORDERABLES Performing Organization Address City/State/[place] [address] (ABNORMAL) Prothrombin Time (12/11/2021 4:28 AM EDT) P athologist Signature PT 17.7 (H) 9.4 - 12.5 [facility] LABORATORY INR 1.6 [place] [...] Organization Address City/State/[place] [address] (ABNORMAL) BMP w/fasting Glucose (12/11/2021 4:28 AM EDT) athologist Signature Glucose 207 (H) 65 - 99 [facility] Fasting mg/dL [facility] LABORATORY Comment: ?Fasting* Glucose [...] City/[facility]/[place] [address] Magnesium (12/11/2021 4:28 AM EDT) P athologist Signature Magnesium 1.04 0.69 - 1.07 [facility] mmol/L [facility] LABORATORY Specimen Anatomical Collection Method Collection Time Receive d Time (Source) Location / / Volume Laterality Blood 12/11/2021 4:28 AM 2 4:37 EDT AM EDT Resulting Agency Comment Spec In Lab Iker Cuevas MD CHEMISTRY ORDERABLES Performing Organization Address City/State/[place] [address] POCT Glucose (12/11/2021 3:58 AM EDT) athologist Signature POC Glucose 189 65 - 199 [facility] SU mg/dL [facility] LABORATORY Comment: Supplemental ranges: <140 mg/dL before meals <180 mg/dL all other times of the day Specimen Anatomical Collection Method Collection Time Receive d Time (Source) Location / / Volume Laterality Blood 12/11/2021 3:58 AM 2 3:58 EDT AM EDT Iker Cuevas MD POINT OF CARE TEST ORDERABLE S Performing Organization Address City/State/[place] [address] (ABNORMAL) POCT Glucose (12/10/2021 11:45 PM EDT) athologist Signature POC Glucose 205 (H) 65 - 199 [facility] mg/dL [facility] LABORATORY Comment: Supplemental ranges: <140 mg/dL before meals <180 mg/dL all other times of the day Specimen Anatomical Collection Method Collection Time Receive d Time (Source) Location / / Volume Laterality Blood 12/10/2021 11:45 12/10/2021 PM EDT 11:45 PM EDT Iker Cuevas MD POINT OF CARE TEST ORDERABLE S Performing Organization Address City/State/[place] [address] (ABNORMAL) POCT Glucose (12/10/2021 7:54 PM EDT) athologist Signature POC Glucose 225 (H) 65 - 199 [facility] mg/dL [facility] LABORATORY Comment: Supplemental ranges: <140 mg/dL before meals <180 mg/dL all other times of the day Specimen Anatomical Collection Method Collection Time Receive d Time (Source) Location / / Volume Laterality Blood 12/10/2021 7:54 PM 2 7:54 EDT PM EDT Iker Cuevas MD POINT OF CARE TEST ORDERABLE S Performing Organization Address City/State/[place] [address] Potassium (12/10/2021 7:46 PM EDT) athologist Signature Potassium 4.2 3.5 - 5.0 [facility] mmol/L [facility] LABORATORY Comment: Please note: [...] Organization Address City/State/[place] [address] (ABNORMAL) Basic Metabolic Panel (non-fasting) (12/10/2021 6:12 PM EDT) athologist Signature Glucose Lvl 246 (H) 65 - 199 [facility] mg/dL [facility] LABORATORY Comment: Diabetes: >=200 mg/dL plus symp toms BUN 50 (H) 10 - 20 mg/dL [facility] LABORATORY Creatinine 1.39 0.80 - 1.50 mg/dL [facility] LABORATORY Sodium 138 135 - 145 mmol/L [facility] LABORATORY Potassium Not Perf 3.5 - 5.0 [facility] LABORATORY Comment: Unable to [...] Organization Address City/State/[place] [address] POCT Glucose (12/10/2021 4:59 PM EDT) P athologist Signature POC Glucose 158 65 - 199 [facility] mg/dL [facility] LABORATORY Comment: Supplemental ranges: <140 mg/dL before meals <180 mg/dL all other times of the day Specimen Anatomical Collection Method Collection Time Receive d Time (Source) Location / / Volume Laterality Blood 12/10/2021 4:59 PM 2 4:59 EDT PM EDT Iker Cuevas MD POINT OF CARE TEST ORDERABLE S Performing Organization Address City/State/[place] [address] (ABNORMAL) POCT Glucose (12/10/2021 12:43 PM EDT) athologist Signature POC Glucose 241 (H) 65 - 199 [facility] mg/dL [facility] LABORATORY Comment: Supplemental ranges: <140 mg/dL before meals <180 mg/dL all other times of the day Specimen Anatomical Collection Method Collection Time Receive d Time (Source) Location / / Volume Laterality Blood 12/10/2021 12:43 12/10/2021 PM EDT 12:43 PM EDT Iker Cuevas MD POINT OF CARE TEST ORDERABLE S Performing Organization Address City/State/ZIP Code Phon e Number [address] EKG 12 Lead (12/10/2021 11:17 AM EDT) Component Value Ref Range Test Analysis Performed Pathologis t Method Time At Signature Ventricular rate 62 BPM MUSE SYSTEM Atrial Rate 62 BPM MUSE SYSTEM P-R Interval 142 ms MUSE SYSTEM QRS Duration 100 ms MUSE SYSTEM Q-T Interval 434 ms MUSE SYSTEM QTC Calculated 440 ms MUSE SYSTEM (Bezet) Calculated P [place] 34 degrees MUSE SYSTEM Calculated R [place] -39 degrees MUSE SYSTEM Calculated T [place] 92 degrees MUSE SYSTEM INTERPRETATION Normal sinus [...] Laterality Volume Narrative 12/10/2021 12:04 PM EDT ?[facility] ? Cardiac Cathete rization/Intervention Report ? Patient Name: Don Fatima. ? Procedure Date: 12/10/2021 ? A #: [id number] ? Primary Physician: Nobles, Vitaliy P ? Case #: [id number] ? File Name: [id number] ? Catheterization Order Number: [id number] ? [facility] ? Final Report [place], [place] ? Patient Name: ? Don E. Stewa rt ? ID#: ?[id number] ? : ?1945 ? Procedure Date: ? December 10, 2021 ? Case #: ? [id number] ? Room: ? 1 ? Case Physician: [...] procedure was Urgent. The indication for ?the track laborer visit is ACS great er than [...] ?3.75 guiding catheter and a 3.5 Fr [place] [facility] [place] 20 Mhz using Manual ?pullback. ??Imaging was [...] ?3.75 guiding catheter and a 3.5 Fr [place] [facility] [place] 20 Mhz using Manual ?pullback. ??Imaging was [...] may require ?modification of this regimen. C [facility] Interventional Cardiology for ?questions. ?The 1 year bleeding risk as nusrat culated by the PRECISE DAPT score is High ?risk. ?High Bleeding Risk - Anticoagul ation and DAPT: ?- ??Assess ischemic and bleedin g risks using validated risk predictors ?(e.g. CHADS2-VASC, HAS-BLED, UT ECISE DAPT, DAPT Score) ?- ??Keep anticoagulant [...] Procedure Note Vitaliy Nobles MD - 01/14/2022 [facility] Cardiac Catheterization/Intervention Re port Patient Name: Don Fatima Procedure Date: 12/10/2021 A #: [id number] Primary Physician: Vitaliy Nobles Case #: [id number] File Name: [id number] Catheterization Order Number: [id number] [facility] Final Report [place], [place] Patient Name: Don Fatima ID#: [...] e was Urgent. The indication for the track laborer visit is ACS greater than 24 [...] and a 3.5 Fr [place] [facility] [place] 20 Mhz using Manual pullback. Imaging was [...] and a 3.5 Fr [place] [facility] [place] 20 Mhz using Manual pullback. Imaging was [...] require modification of this regimen. Consult D [facility] Interventional Cardiology [...] 262 (H) 65 - 199 [facility] mg/dL [facility] LABORATORY Comment: Supplemental ranges: <140 mg/dL before meals <180 mg/dL all other times of the day Specimen Anatomical Collection Method Collection Time Receive d Time (Source) Location / / Volume Laterality Blood 12/10/2021 10:30 12/10/2021 AM EDT 10:30 AM EDT Iker Cuevas MD POINT OF CARE TEST ORDERABLE S Performing Organization Address City/[facility] [place] [address] (ABNORMAL) POCT Glucose (12/10/2021 9:48 AM EDT) athologist Signature POC Glucose 279 (H) 65 - 199 [facility] mg/dL [facility] LABORATORY Comment: Supplemental ranges: <140 mg/dL before meals <180 mg/dL all other times of the day Specimen Anatomical Collection Method Collection Time Receive d Time (Source) Location / / Volume Laterality Blood 12/10/2021 9:48 AM 9:48 EDT AM EDT Iker Cuevas MD POINT OF CARE TEST ORDERABLE S Performing Organization Address City/State/[place] [address] (ABNORMAL) POCT Glucose (12/10/2021 9:07 AM EDT) P athologist Signature POC Glucose 268 (H) 65 - 199 [facility] mg/dL [facility] LABORATORY Comment: Supplemental ranges: <140 mg/dL before meals <180 mg/dL all other times of the day Specimen Anatomical Collection Method Collection Time Receive d Time (Source) Location / / Volume Laterality Blood 12/10/2021 9:07 AM 9:07 EDT AM EDT Iker Cuevas MD POINT OF CARE TEST ORDERABLE S Performing Organization Address City/State/[place] [address] (ABNORMAL) Point of Care Blood Gas Historical (12/10/2021 9:04 AM EDT) Patholo gist Method Time Signature POC pH 7.40 7.35 - [facility] 7.45 [facility] LABORATORY POC PCO2 40 35 - 45 [facility] mmHg [facility] LABORATORY POC PO2 63 (L) 85 - 104 [facility] mmHg [facility] LABORATORY POC Base Excess 0.0 -3.0 - 3.0 [facility] K mmol/L [facility] LABORATORY POC HCO3 24.8 20.0 - [facility] 26.0 [facility] mmol/[facility] LABORATORY POC Sodium 143 135 - 145 [facility] mmol/L [facility] LABORATORY POC Potassium 3.7 3.5 - 5.0 [facility] mmol/L [facility] LABORATORY POC Ionized Ca 1.07 (L) 1.15 - [facility] 1.33 [facility] mmol/L HOSPITAL LABORATORY POC Hematocrit 30.0 (L) 40.0 - [facility] 51.0 % [facility] LABORATORY POC Calc Hgb 10.2 (L) 13.7 - [facility] 17.5 g/dL [facility] LABORATORY Comment: The calculation of hemoglobin f rom hematocrit assumes a normal MCHC. POC Bgas Loc CC LAB [facility] LABORATORY Specimen Anatomical Collection Method Collection Time Receive d Time (Source) Location / / Volume Laterality Blood 12/10/2021 9:04 AM 2 EDT 12:00 PM EDT Ifeanyi Truong MD CHEMISTRY ORDERABLES Performing Organization Address City/[facility]/ZIP Code Phon e Number [address] (ABNORMAL) POCT Glucose (12/10/2021 7:19 AM EDT) athologist Signature POC Glucose 274 (H) 65 - 199 [facility] mg/dL [facility] LABORATORY Comment: Supplemental ranges: <140 mg/dL before meals <180 mg/dL all other times of the day Specimen Anatomical Collection Method Collection Time Receive d Time (Source) Location / / Volume Laterality Blood 12/10/2021 7:19 AM 2 7:19 EDT AM EDT Iker Cuevas MD POINT OF CARE TEST ORDERABLE S Performing Organization Address City/[facility]/[place] [address] Heparin (unfractionated) Level (12/10/2021 4:25 AM EDT) athologist Signature Heparin UFH 0.69 IU/mL [facility] LABORATORY Comment: Heparin (anti-Xa) levels should [...] Organization Address City/State/[place] [address] [facility] [address]ORY Drive (ABNORMAL) Differential, Automated (12/10/2021 4:25 AM EDT) [facility] Method Time Signature Neutrophils % 79.8 % [facility] LABORATORY Neutr Abs (ANC) 7.47 (H) 1.70 - [facility] 6.10 [facility] x10(3)/[facility] LABORATORY Lymphocytes % 10.6 % [facility] LABORATORY Lymphocytes Abs 1.0 0.9 - 3.2 [facility] x10(3)/[facility] LABORATORY Monocytes % 8.4 % [facility] LABORATORY Monocyte Abs 0.8 0.3 - 0.9 [facility] x10(3)/[facility] LABORATORY Eosinophils % 0.6 % [facility] LABORATORY Eosinophils Abs 0.1 0.0 - 0.4 [facility] x10(3)/[facility] LABORATORY Basophils % 0.2 % [facility] LABORATORY Basophils Abs 0.0 0.0 - 0.1 [facility] x10(3)/[facility] LABORATORY Immature Gran % 0.40 [...] - 0.04 x10(3)/[facility] LABORATORY Specimen Anatomical Collection Method Collection Time Receive d Time (Source) Location / / Volume Laterality Blood 12/10/2021 4:25 AM 4:34 EDT AM EDT Resulting Agency Comment Spec In Lab Morgan BROWN HEMATOLOGY ORDERABLES Performing Organization Address City/[facility]/[place] [address] (ABNORMAL) Hemogram (12/10/2021 4:25 AM EDT) Analysis Performed At Patho logist Time Signature WBC 9.4 4.0 - 9.5 [facility] x10(3)/[facility] LABORATORY RBC 3.81 (L) 4.58 - [facility] 5.54 [facility] x10(6)/[facility] LABORATORY Hemoglobin 11.1 (L) 13.7 - [facility] 16.5 g/dL [facility] LABORATORY Hematocrit 34.0 (L) 40.5 - [facility] 48.5 % [facility] LABORATORY MCV 89.2 82.9 - [facility] 93.1 [facility] LABORATORY MCH 29.1 27.5 - [facility] 32.1 pg [facility] LABORATORY MCHC 32.6 32.0 - [facility] 35.7 g/dL [facility] LABORATORY Platelets 183 145 - 357 [facility] x10(3)/[facility] LABORATORY RDWSD 49.9 (H) 36.0 - [facility] 45.0 [facility] LABORATORY RDWCV 15.2 (H) 11.4 - [facility] 13.8 % [facility] LABORATORY MPV 9.8 7.6 - 12.9 [facility] LABORATORY nRBC % Auto 0.0 % [facility] LABORATORY nRBC Abs Auto 0.000 0.000 - [facility] 0.000 [facility] x10(3)/[facility] LABORATORY Specimen Anatomical Collection Method Collection Time Receive d Time (Source) Location / / Volume Laterality Blood 12/10/2021 4:25 AM 4:34 EDT AM EDT Resulting Agency Comment Spec In Lab Morgan BROWN HEMATOLOGY ORDERABLES Performing Organization Address City/State/ZIP Code Phon e Number [place] [id number]OS[address] LAB[address]ORY Drive (ABNORMAL) Prothrombin Time (12/10/2021 4:25 AM EDT) P athologist Signature PT 20.0 (H) 9.4 - 12.5 [facility] LABORATORY INR 1.7 [place] [...] City/State/ZIP Code Phon e Number [place] [id number] [facility]OS[address]ITAL LAB[address]ORY Drive (ABNORMAL) BMP w/fasting Glucose (12/10/2021 4:25 AM EDT) P athologist Signature Glucose 210 (H) 65 - 99 [facility] Fasting mg/dL [facility] LABORATORY Comment: ?Fasting* Glucose [...] Organization Address City/State/[place] [address] Magnesium (12/10/2021 4:25 AM EDT) P athologist Signature Magnesium 0.95 0.69 - 1.07 [facility] mmol/L [facility] LABORATORY Specimen Anatomical Collection Method Collection Time Receive d Time (Source) Location / / Volume Laterality Blood 12/10/2021 4:25 AM 2 4:34 EDT AM EDT Resulting Agency Comment Spec In Lab Iker Cuevas MD CHEMISTRY ORDERABLES Performing Organization Address City/State/[place] [address] POCT Glucose (12/10/2021 1:58 AM EDT) athologist Signature POC Glucose 164 65 - 199 [facility] mg/dL [facility] LABORATORY Comment: Supplemental ranges: <140 mg/dL before meals <180 mg/dL all other times of the day Specimen Anatomical Collection Method Collection Time Receive d Time (Source) Location / / Volume Laterality Blood 12/10/2021 1:58 AM 2 1:58 EDT AM EDT Iker Cuevas MD POINT OF CARE TEST ORDERABLE S Performing Organization Address City/[facility]/[place] [address] (ABNORMAL) POCT Glucose (12/09/2021 9:02 PM EDT) athologist Signature POC Glucose 313 (H) 65 - 199 [facility] mg/dL [facility] LABORATORY Comment: Supplemental ranges: <140 mg/dL before meals <180 mg/dL all other times of the day Specimen Anatomical Collection Method Collection Time Receive d Time (Source) Location / / Volume Laterality Blood 12/09/2021 9:02 PM 2 9:02 EDT PM EDT Iker Cuevas MD POINT OF CARE TEST ORDERABLE S Performing Organization Address City/State/[place] [address] Heparin (unfractionated) Level (12/09/2021 7:30 PM EDT) athologist Signature Heparin UFH 0.48 IU/mL [facility] LABORATORY Comment: Heparin (anti-Xa) levels should [...] Organization Address City/State/[place] [address] (ABNORMAL) Basic Metabolic Panel (non-fasting) (12/09/2021 7:30 PM EDT) P athologist Signature Glucose Lvl 372 (H) 65 - 199 [facility] mg/dL [facility] LABORATORY Comment: Diabetes: >=200 [...] Organization Address City/State/[place] [address] (ABNORMAL) POCT Glucose (12/09/2021 6:34 PM EDT) P athologist Signature POC Glucose 408 (H) 65 - 199 [facility] mg/dL [facility] LABORATORY Comment: Supplemental ranges: <140 mg/dL before meals <180 mg/dL all other times of the day Specimen Anatomical Collection Method Collection Time Receive d Time (Source) Location / / Volume Laterality Blood 12/09/2021 6:34 PM 2 6:34 EDT PM EDT Iker Cuevas MD POINT OF CARE TEST ORDERABLE S Performing Organization Address City/State/[place] [address] (ABNORMAL) POCT Glucose (12/09/2021 6:32 PM EDT) P athologist Signature POC Glucose 356 (H) 65 - 199 [facility] mg/dL [facility] LABORATORY Comment: Supplemental ranges: <140 mg/dL before meals <180 mg/dL all other times of the day Specimen Anatomical Collection Method Collection Time Receive d Time (Source) Location / / Volume Laterality Blood 12/09/2021 6:32 PM 2 6:32 EDT PM EDT Iker Cuevas MD POINT OF CARE TEST ORDERABLE S Performing Organization Address City/[facility]/[place] [address] (ABNORMAL) POCT Glucose (12/09/2021 4:19 PM EDT) athologist Signature POC Glucose 347 (H) 65 - 199 [facility] mg/dL [facility] LABORATORY Comment: Supplemental ranges: <140 mg/dL before meals <180 mg/dL all other times of the day Specimen Anatomical Collection Method Collection Time Receive d Time (Source) Location / / Volume Laterality Blood 12/09/2021 4:19 PM 2 4:19 EDT PM EDT Iker Cuevas MD POINT OF CARE TEST ORDERABLE S Performing Organization Address City/[facility]/[place] [address] Heparin (unfractionated) Level (12/09/2021 1:29 PM EDT) athologist Signature Heparin UFH 0.42 IU/mL [facility] LABORATORY Comment: Heparin (anti-Xa) levels should [...] City/[facility]/[place] [address] (ABNORMAL) POCT Glucose (12/09/2021 12:02 PM EDT) P athologist Signature POC Glucose 235 (H) 65 - 199 [facility] mg/dL [facility] LABORATORY Comment: Supplemental ranges: <140 mg/dL before meals <180 mg/dL all other times of the day Specimen Anatomical Collection Method Collection Time Receive d Time (Source) Location / / Volume Laterality Blood 12/09/2021 12:02 12/09/2021 PM EDT 12:02 PM EDT Iker Cuevas MD POINT OF CARE TEST ORDERABLE S Performing Organization Address City/[facility]/[place] [address] (ABNORMAL) POCT Glucose (12/09/2021 9:44 AM EDT) athologist Signature POC Glucose 214 (H) 65 - 199 [facility] mg/dL [facility] LABORATORY Comment: Supplemental ranges: <140 mg/dL before meals <180 mg/dL all other times of the day Specimen Anatomical Collection Method Collection Time Receive d Time (Source) Location / / Volume Laterality Blood 12/09/2021 9:44 AM 9:44 EDT AM EDT Iker Cuevas MD POINT OF CARE TEST ORDERABLE S Performing Organization Address City/[facility]/[place] [address] EKG 12 Lead (12/09/2021 7:57 AM EDT) Component Value Ref Range Test Analysis Performed Pathologis t Method Time At Signature Ventricular rate 101 BPM MUSE SYSTEM Atrial Rate 101 BPM MUSE SYSTEM P-R Interval 150 ms MUSE SYSTEM QRS Duration 112 ms MUSE SYSTEM Q-T Interval 364 ms MUSE SYSTEM QTC Calculated 471 ms MUSE SYSTEM (Bezet) Calculated P [place] 59 degrees MUSE SYSTEM Calculated R [place] -42 degrees MUSE SYSTEM Calculated T [place] 102 degrees MUSE SYSTEM INTERPRETATION Sinus tachycardia Occasional Premature ventricular com plexes MUSE SYSTEM Left axis deviation 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) Abnormal ECG When compared with ECG of 08-DEC-2021 16:40, Premature ventricular complexes are now Present Confirmed by MD Fernandez Danette ([id number]) on 12/10/2021 4:55:06 PM Specimen Anatomical Collection Method Collection Time Receive d Time (Source) Location / / Volume Laterality 12/09/2021 7:57 AM 2 4:55 EDT PM EDT Iker Cuevas MD ECG ORDERABLES Performing Organization Address City/State/ZIP Code Phon e Number MUSE SYSTEM (ABNORMAL) POCT Glucose (12/09/2021 7:28 AM EDT) P athologist Signature POC Glucose 263 (H) 65 - 199 [facility] mg/dL [facility] LABORATORY Comment: Supplemental ranges: <140 mg/dL before meals <180 mg/dL all other times of the day Specimen Anatomical Collection Method Collection Time Receive d Time (Source) Location / / Volume Laterality Blood 12/09/2021 7:28 AM 2 7:28 EDT AM EDT Iker Cuevas MD POINT OF CARE TEST ORDERABLE S Performing Organization Address City/State/[place] [address] (ABNORMAL) Hemoglobin A1c (12/09/2021 [...] Mellitus, Diabetes Care 2013; 36: Suppl. 1, D02-26 Est Avg Gluc See note mg/dL ST. [...] into estimated average glucose values. ??Diabetes Care 2008:31(8):9642-4975. Specimen Anatomical Collection Method Collection Time Receive d Time (Source) Location / / Volume Laterality Blood Venous Draw / 12/09/2021 6:18 AM 12/10/19 22 Unknown EDT 12:24 PM EDT Resulting Agency Comment Spec In Lab Migdalia BROWN CHEMISTRY ORDERABLES Performing Organization Address City/State/[place] [address] (ABNORMAL) Prothrombin Time (12/09/2021 6:18 AM EDT) athologist Signature PT 26.6 (H) 9.4 - 12.5 [facility] LABORATORY INR 2.3 [place] [...] Migdalia BROWN HEMATOLOGY ORDERABLES Performing Organization Address City/[facility]/ZIP Code Phon e Number [address] Heparin (unfractionated) Level (12/09/2021 6:18 AM EDT) athologist Signature Heparin UFH 0.24 IU/mL [facility] LABORATORY Comment: Heparin (anti-Xa) levels should [...] City/[facility]/ZIP Code Phon e Number [address] (ABNORMAL) Differential, Automated (12/09/2021 6:18 AM EDT) Patholo gist Method Time Signature Neutrophils % 91.5 % [facility] LABORATORY Neutr Abs (ANC) 15.78 (H) 1.70 - [facility] 6.10 [facility] x10(3)/[facility] L LABORATORY Lymphocytes % 2.9 % [facility] LABORATORY Lymphocytes Abs 0.5 (L) 0.9 - 3.2 [facility] x10(3)/[facility] LABORATORY Monocytes % 4.9 % [facility] LABORATORY Monocyte Abs 0.8 0.3 - 0.9 [facility] x10(3)/[facility] LABORATORY Eosinophils % 0.0 % [facility] LABORATORY Eosinophils Abs 0.0 0.0 - 0.4 [facility] x10(3)/[facility] LABORATORY Basophils % 0.2 % [facility] LABORATORY Basophils Abs 0.0 0.0 - 0.1 [facility] x10(3)/[facility] LABORATORY Immature Gran % 0.50 [...] Gran Abs 0.09 (H) 0.00 - 0.04 x10(3)/[facility] LABORATORY Specimen Anatomical Collection Method Collection Time Receive d Time (Source) Location / / Volume Laterality Blood 12/09/2021 6:18 AM 2 6:33 EDT AM EDT Resulting Agency Comment Spec In Lab Morgan BROWN HEMATOLOGY ORDERABLES Performing Organization Address City/State/[place] [address] (ABNORMAL) Hemogram (12/09/2021 6:18 AM EDT) Analysis Performed At Patho logist Time Signature WBC 17.2 (H) 4.0 - 9.5 [facility] x10(3)/[facility] LABORATORY RBC 4.32 (L) 4.58 - [facility] 5.54 [facility] x10(6)/[facility] LABORATORY Hemoglobin 12.6 (L) 13.7 - [facility] 16.5 g/dL [facility] LABORATORY Hematocrit 38.9 (L) 40.5 - [place] 48.5 % [facility] LABORATORY MCV 90.0 82.9 - [facility] 93.1 [facility] LABORATORY MCH 29.2 27.5 - [place] OLIVASCK 32.1 pg [facility] LABORATORY MCHC 32.4 32.0 - [place] ZHAOSU 35.7 g/dL [facility] LABORATORY Platelets 193 145 - 357 [facility] x10(3)/[facility] LABORATORY RDWSD 50.4 (H) 36.0 - [facility] 45.0 [facility] LABORATORY RDWCV 15.2 (H) 11.4 - [facility] 13.8 % [facility] LABORATORY MPV 9.5 7.6 - 12.9 [facility] LABORATORY nRBC % Auto 0.0 % [facility] LABORATORY nRBC Abs Auto 0.000 0.000 - [facility] SU 0.000 [facility] x10(3)/[facility] LABORATORY Specimen Anatomical Collection Method Collection Time Receive d Time (Source) Location / / Volume Laterality Blood 12/09/2021 6:18 AM 6:33 EDT AM EDT Resulting Agency Comment Spec In Lab Morgan BROWN HEMATOLOGY ORDERABLES Performing Organization Address City/State/[place] [address] Lipid Panel (Reflex Direct LDL) (12/09/2021 6:18 AM EDT) P athologist Signature Chol, Total 105 mg/dL [facility] LABORATORY Comment: Lower Risk: <200 mg/dL Average Risk: 200-239 mg/dL Higher Risk: >tq=965 mg/dL Triglycerides 133 mg/dL [facility] LABORATORY Comment: Average Risk/Lower Risk: <150 mg/dL Borderline High Risk: 150-199 mg/dL High Risk: 200-499 mg/dL Very High Risk: >oa=346 mg/dL HDL 42 mg/dL [facility] LABORATORY Comment: Males: ?? Higher Risk: <40 mg/dL Females: ?? Higher Risk: <50 mg/dL LDL Cholesterol 36 mg/dL [facility] LABORATORY Comment: Lowest Risk: <100 mg/dL Lower Risk: 100-129 mg/dL Borderline High Risk: 130-159 mg/dL High Risk: 160-189 mg/dL Very High Risk: >av=131 mg/dL Chol/HDL Ratio 2.5 ratio [facility] LABORATORY Lipid Interpretation See Note [facility] LABORATORY Comment: Lipid management should be guided by a p atient? s ASCVD risk, goals and preferences. ACC/AHA Guidelines recommend high intens ity statin if clinical ASCVD or LDL greater than or equal to 190 mg/dL. http://[email or web address]-TEX-[email or web address] Adults aged 40-75 with LDL 70-189 mg/dL should have their 10 year ASCVD risk estimated with the ACC/AHA ASCVD risk es timator http://tools.acc.org/CWBBJ-Dhiw-Ruzrqwoy r/ Statin should be discussed if risk [...] Organization Address City/State/[place] [address] TSH (12/09/2021 6:18 AM EDT) athologist Signature TSH 1.60 0.27 - 4.20 [facility] mcIU/mL [facility] LABORATORY Comment: Reference Interval (mcIU/mL): Females: ??First Trimester: 0.23-3.88 ??Second Trimester: 0.22-3.90 ??Third Trimester: 0.44-4.66 Specimen Anatomical Collection Method Collection Time Receive d Time (Source) Location / / Volume Laterality Blood 12/09/2021 6:18 AM 2 6:33 EDT AM EDT Resulting Agency Comment Spec In Lab Iker Cuevas MD CHEMISTRY ORDERABLES Performing Organization Address City/[facility]/[place] [address] Hepatic Function Panel (12/09/2021 6:18 AM EDT) P athologist Signature Total Protein 7.3 6.1 - 8.0 [place] g/dL [facility] LABORATORY Albumin 4.2 3.2 - 5.2 [place] [facility] g/dL [facility] LABORATORY AST 25 0 - 39 [facility] SU unit/L [facility] LABORATORY ALT 15 0 - 55 [employer] unit/L [facility] LABORATORY Alk Phos 75 40 - 130 [place] unit/L [facility] LABORATORY Total 1.1 0.2 - 1.3 [employer] Bilirubin mg/dL [facility] LABORATORY Bili, Direct 0.2 0.0 - 0.3 [place] mg/dL [facility] LABORATORY Specimen Anatomical Collection Method Collection Time Receive d Time (Source) Location / / Volume Laterality Blood 12/09/2021 6:18 AM 2 6:33 EDT AM EDT Resulting Agency Comment Spec In Lab Iker Cuevas MD CHEMISTRY ORDERABLES Performing Organization Address City/[facility]/[place] [address] (ABNORMAL) BMP w/fasting Glucose (12/09/2021 6:18 AM EDT) P athologist Signature Glucose 235 (H) 65 - 99 [place] Fasting mg/dL [facility] LABORATORY Comment: ?Fasting* Glucose [...] Organization Address City/State/ZIP Code Phon e Number [address] Magnesium (12/09/2021 6:18 AM EDT) P athologist Signature Magnesium 0.81 0.69 - 1.07 [facility] mmol/L [facility] LABORATORY Specimen Anatomical Collection Method Collection Time Receive d Time (Source) Location / / Volume Laterality Blood 12/09/2021 6:18 AM 2 6:33 EDT AM EDT Resulting Agency Comment Spec In Lab Iker Cuevas MD CHEMISTRY ORDERABLES Performing Organization Address City/[facility]/[place] [facility] [place] [address] (ABNORMAL) Troponin (12/09/2021 6:18 AM EDT) athologist Signature Troponin-T 1.13 (H) 0.00 - [place] [facility] 0.00 ng/mL [facility] LABORATORY Comment: The 99th [...] additional sample may be indicated. Reference: Third Conde Definition of Myocardial Infarction. Journal of the [place] College [employer] 2012;60:1581-98 Specimen Anatomical Collection Method Collection Time Receive d Time (Source) Location / / Volume Laterality Blood 12/09/2021 6:18 AM 2 6:33 EDT AM EDT Resulting Agency Comment Spec In Lab Iker Cuevas MD CHEMISTRY ORDERABLES Performing Organization Address City/State/ZIP Code Phon e Number [place] [id number]OS[address] LAB[address]ORY Drive XR Chest One View [...] please contact the health manager critical care unit that requested your imaging first. ? Narrative [...] please contact the health manager critical care unit that requested your imaging first. Amber Sanches MD IMG DX ORDERABLES (ABNORMAL) BLOOD GAS 2 ARTERIAL (12/09/2021 5:14 AM EDT) Analysis Performed At Patho logist Time Signature pH Art 7.43 7.35 - [facility] 7.45 [facility] LABORATORY pCO2 Art 36 35 - 45 [facility] mmHg [facility] LABORATORY pO2 Art 67 (L) 85 - 104 [facility] mmHg [facility] LABORATORY HCO3 Art 23.4 20.0 - [facility] 26.0 [facility] mmol/L [facility] LABORATORY BE Art -0.9 -3.0 - 3.0 [facility] mmol/L [facility] LABORATORY Hgb Blood Gas 13.2 (L) 13.7 - [facility] 16.5 g/dL [facility] LABORATORY O2HB Art 91.3 (L) 94.0 - [facility] 97.0 % [facility] LABORATORY COHB Art 0.4 % [facility] LABORATORY Comment: Nonsmokers: 0.5-1.5% COHB Smokers: Variable, but usually less than 10% Toxic: 20-30% COHB Lethal: Greater than 60% COHB METHB Art 0.4 <=1.5 % [facility] [...] MEDICAL CENTER LABORATORY FIO2 Art 35 % [facility] LABORATORY Flow Art 8.0 LPM [facility] LABORATORY PF Ratio Art [address] [facility] LABORATORY Specimen Anatomical Collection Method Collection Time Receive d Time (Source) Location / / Volume Laterality Blood 12/09/2021 5:14 AM 2 5:14 EDT AM EDT Iker Cuevas MD CHEMISTRY ORDERABLES Performing Organization Address City/State/[place] [address] POCT Glucose (12/09/2021 4:46 AM EDT) athologist Signature POC Glucose 198 65 - 199 [facility] mg/dL [facility] LABORATORY Comment: Supplemental ranges: <140 mg/dL before meals <180 mg/dL all other times of the day Specimen Anatomical Collection Method Collection Time Receive d Time (Source) Location / / Volume Laterality Blood 12/09/2021 4:46 AM 2 4:46 EDT AM EDT Iker Cuevas MD POINT OF CARE TEST ORDERABLE S Performing Organization Address City/State/[place] [address] (ABNORMAL) POCT Glucose (12/09/2021 3:01 AM EDT) athologist Signature POC Glucose 225 (H) 65 - 199 [facility] mg/dL [facility] LABORATORY Comment: Supplemental ranges: <140 mg/dL before meals <180 mg/dL all other times of the day Specimen Anatomical Collection Method Collection Time Receive d Time (Source) Location / / Volume Laterality Blood 12/09/2021 3:01 AM 2 3:01 EDT AM EDT Iker Cuevas MD POINT OF CARE TEST ORDERABLE S Performing Organization Address City/State/[place] [address] (ABNORMAL) POCT Glucose (12/08/2021 10:55 PM EDT) athologist Signature POC Glucose 327 (H) 65 - 199 [facility] mg/dL [facility] LABORATORY Comment: Supplemental ranges: <140 mg/dL before meals <180 mg/dL all other times of the day Specimen Anatomical Collection Method Collection Time Receive d Time (Source) Location / / Volume Laterality Blood 12/08/2021 10:55 12/08/2021 PM EDT 10:55 PM EDT Iker Cuevas MD POINT OF CARE TEST ORDERABLE S Performing Organization Address City/State/[place] [address] Heparin (unfractionated) Level (12/08/2021 10:03 PM EDT) P athologist Signature Heparin UFH 0.18 IU/mL [facility] LABORATORY Comment: Heparin (anti-Xa) levels should [...] Organization Address City/State/[place] [address] (ABNORMAL) Troponin (12/08/2021 10:03 PM EDT) P athologist Signature Troponin-T 0.92 (H) 0.00 - [facility] 0.00 ng/mL [facility] LABORATORY Comment: The 99th [...] additional sample may be indicated. Reference: Third Conde Definition of Myocardial Infarction. Journal of the [place] College [employer] 2012;60:1581-98 Specimen Anatomical Collection Method Collection Time Receive d Time (Source) Location / / Volume Laterality Blood 12/08/2021 10:03 12/08/2021 PM EDT 10:31 PM EDT Resulting Agency Comment Spec In Lab Iker Cuevas MD CHEMISTRY ORDERABLES Performing Organization Address City/State/[place] [address] (ABNORMAL) POCT Glucose (12/08/2021 8:22 PM EDT) athologist Signature POC Glucose 429 (H) 65 - 199 [facility] mg/dL [facility] LABORATORY Comment: Supplemental ranges: <140 mg/dL before meals <180 mg/dL all other times of the day Specimen Anatomical Collection Method Collection Time Receive d Time (Source) Location / / Volume Laterality Blood 12/08/2021 8:22 PM 2 8:22 EDT PM EDT Iker Cuevas MD POINT OF CARE TEST ORDERABLE S Performing Organization Address City/[facility]/[place] [address] (ABNORMAL) POCT Glucose (12/08/2021 7:06 PM EDT) P athologist Signature POC Glucose 442 (H) 65 - 199 [facility] SU mg/dL [facility] LABORATORY Comment: Supplemental ranges: <140 mg/dL before meals <180 mg/dL all other times of the day Specimen Anatomical Collection Method Collection Time Receive d Time (Source) Location / / Volume Laterality Blood 12/08/2021 7:06 PM 2 7:06 EDT PM EDT Iker Cuevas MD POINT OF CARE TEST ORDERABLE S Performing Organization Address City/[facility]/[place] [address] Magnesium (12/08/2021 6:02 PM EDT) athologist Signature Magnesium 0.86 0.69 - 1.07 [facility] mmol/L [facility] LABORATORY Specimen Anatomical Collection Method Collection Time Receive d Time (Source) Location / / Volume Laterality Blood 12/08/2021 6:02 PM 6:36 EDT PM EDT Resulting Agency Comment Spec In Lab Iker Cuevas MD CHEMISTRY ORDERABLES Performing Organization Address City/State/[place] [address] (ABNORMAL) Basic Metabolic Panel (non-fasting) (12/08/2021 6:02 PM EDT) athologist Signature Glucose Lvl 392 (H) 65 - 199 [facility] mg/dL [facility] LABORATORY Comment: Diabetes: >=200 [...] City/State/ZIP Code Phon e Number [place] [id number] [address] Drive (ABNORMAL) Differential, Automated (12/08/2021 6:02 PM EDT) [facility] gist Method Time Signature Neutrophils % 89.5 % [facility] LABORATORY Neutr Abs (ANC) 13.97 (H) 1.70 - [facility] 6.10 [facility] x10(3)/[facility] L LABORATORY Lymphocytes % 3.7 % [facility] LABORATORY Lymphocytes Abs 0.6 (L) 0.9 - 3.2 [facility] x10(3)/[facility] LABORATORY Monocytes % 6.1 % [facility] LABORATORY Monocyte Abs 1.0 (H) 0.3 - 0.9 [facility] x10(3)/[facility] LABORATORY Eosinophils % 0.0 % [facility] LABORATORY Eosinophils Abs 0.0 0.0 - 0.4 [facility] x10(3)/[facility] LABORATORY Basophils % 0.2 % [facility] LABORATORY Basophils Abs 0.0 0.0 - 0.1 [facility] x10(3)/[facility] LABORATORY Immature Gran % 0.50 [...] Organization Address City/State/[place] [address] (ABNORMAL) Hemogram (12/08/2021 6:02 PM EDT) Analysis Performed At Patho logist Time Signature WBC 15.6 (H) 4.0 - 9.5 [facility] x10(3)/[facility] LABORATORY RBC 4.05 (L) 4.58 - [facility] US 5.54 [facility] x10(6)/[facility] LABORATORY Hemoglobin 11.8 (L) 13.7 - [facility] 16.5 g/dL [facility] LABORATORY Hematocrit 35.8 (L) 40.5 - [facility] 48.5 % [facility] LABORATORY MCV 88.4 82.9 - [facility] 93.1 [facility] LABORATORY MCH 29.1 27.5 - [facility] SU 32.1 pg [facility] LABORATORY MCHC 33.0 32.0 - [facility] 35.7 g/dL [facility] LABORATORY Platelets 178 145 - 357 [facility] x10(3)/[facility] LABORATORY RDWSD 49.3 (H) 36.0 - [facility] SU 45.0 [facility] LABORATORY RDWCV 15.1 (H) 11.4 - [facility] SU 13.8 % [facility] LABORATORY MPV 10.4 7.6 - 12.9 [facility] LABORATORY nRBC % Auto 0.0 % [facility] LABORATORY nRBC Abs Auto 0.000 0.000 - [facility] 0.000 [facility] x10(3)/[facility] LABORATORY Specimen Anatomical Collection Method Collection Time Receive d Time (Source) Location / / Volume Laterality Blood 12/08/2021 6:02 PM 2 6:36 EDT PM EDT Resulting Agency Comment Spec In Lab Morgan BROWN HEMATOLOGY ORDERABLES Performing Organization Address City/State/ZIP Code Phon [place] [address] (ABNORMAL) Troponin (12/08/2021 6:02 PM EDT) P athologist Signature Troponin-T 0.89 (H) 0.00 - [facility] 0.00 ng/mL [facility] LABORATORY Comment: The 99th [...] additional sample may be indicated. Reference: Third Conde Definition of Myocardial Infarction. Journal of the [place] College [employer] 2012;60:1581-98 Specimen Anatomical Collection Method Collection Time Receive d Time (Source) Location / / Volume Laterality Blood 12/08/2021 6:02 PM 2 6:36 EDT PM EDT Resulting Agency Comment Spec In Lab Iker Cuevas MD CHEMISTRY ORDERABLES Performing Organization Address City/State/ZIP Code Phon e Number [facility] [place] [address] COVID-19 PCR (12/08/2021 5:00 PM EDT) [facility] Method Time Signature SARS-CoV-2 Not Detected Not Detected [facility] RNA PCR [facility] LABORATORY Comment: This result [...] using the Simplexa COVID-19 Direct Assay by [employer]i marcum as authorized by the FDA issued [...] Department of Pathology and Laboratory Medicine at [facility], certified under the Clinical [...] fact sheets at the following FDA website: https://www.fda.gov/medical-devices/guzljwzzwjm-oxejczd-2308-bkzfj-36-dwvhqmtcr- ufp-ighgtavkscmhpo-tbuffac-devices/uvjst-ofrtocybkbh-nolv SARS-CoV-2 Source SALESPERSON JEWELRY Swab [facility] LABORATORY Specimen (Source) Anatomical Collection Method Collection Time Re ceived Time Location / / Volume Laterality Nasopharyngeal Swab 12/08/2021 5:00 12/08 PM EDT 6:03 PM EDT Comment: Symptoms->Surveillance Resulting Agency Comment Spec In Lab Iker Cuevas MD MICROBIOLOGY - GENERAL ORDER ROBSON Performing Organization Address City/[facility] Phon e Number [place] [id number]OS[address] LAB[address]ORY Drive EKG 12 Lead (12/08/2021 4:40 PM EDT) Component Value Ref Range Test Analysis Performed Pathologis t Method Time At Signature Ventricular rate 78 BPM MUSE SYSTEM Atrial Rate 78 BPM MUSE SYSTEM P-R Interval 152 ms MUSE SYSTEM QRS Duration 96 ms MUSE SYSTEM Q-T Interval 396 ms MUSE SYSTEM QTC Calculated 451 ms MUSE SYSTEM (Bezet) Calculated P [place] 44 degrees MUSE SYSTEM Calculated R [place] -31 degrees MUSE SYSTEM Calculated T [place] 124 degrees MUSE SYSTEM INTERPRETATION Normal sinus [...] ECG ORDERABLES Performing Organization Address City/[facility] Phon e Number MUSE SYSTEM (ABNORMAL) POCT Glucose (12/08/2021 4:34 PM EDT) P athologist Signature POC Glucose 400 (H) 65 - 199 [place] mg/dL [facility] LABORATORY Comment: Supplemental ranges: <140 mg/dL before meals <180 mg/dL all other times of the day Specimen Anatomical Collection Method Collection Time Receive d Time (Source) Location / / Volume Laterality Blood 12/08/2021 4:34 PM 4:34 EDT PM EDT Iker Cuevas MD POINT OF CARE TEST ORDERABLE S Performing Organization Address City/State/[place] [address] documented in this encounter [...] Coronary atherosclerosis of unspecified type of vessel, chitimacha or graft Cardiomyopathy, ischemic Other specified forms [...] (Given - Provider: Emma Garcia RN)0805 ([facility] Hold - Provider: Admin Adt [...] NOT CRUSH OR OPEN, Routine 1230 ([facility] Unhold - Provider: Admin Adt) [...] Transfer to a Procedural area)1230 ([facility] Unhold - Provider: Admin Adt) 10 mg, Rectal, DAILY PRN, Starting on 12/09/21 at 1629, Until Wed12/12/21 at 1312, Constipation, Routine dextrose 10% infusion(Linked Group 2) 08 (SEP Hold - Provider: Admin Adt - Reason: Transfer to a Procedural area)1230 ([facility] Unhold - Provider: Admin Adt) [...] solution 1 mg( Linked Group 2) 08 ([facility] Hold - Provider: Admin Adt - Reason: Transfer to a Procedural area)1230 ([facility] Unhold - Provider: Admin Adt) [...] (Glutose) 40% oral geL(Linked Group 2) 0805 ([facility] Hold - Provider: Admin Adt - Reason: Transfer to a Procedural area)1230 ([facility] Unhold - Provider: Admin Adt) [...] (Intra-Procedure), Routine niCARdipine (Cardene) (100 mcg/mL) dilution ([employer]) (CANCELED) 1030 (Given - Provider: Vitaliy Nobles [...] Transfer to a Procedural area)1230 ([facility] Unhold - Provider: Admin Adt) [...] episode. & nbsp; For persistent hypoglycemia, con rock lather longer-acting treatment for the duration of the [...]
Routine documented in this encounter Care Teams Car Sales Consultant Relationship Specialty Start Date End Date Lovely Vicente MD PCP - General 04/16/[address] [place] [address] documented as of this encounter
--- OUTSIDE RECORDS SUMMARY | 2022-04-01 10:01 | XMS_ITS | Encounter Summary ---
:1945 Author Organization [place] [address] Care Team Providers Name Role Phone Lovely Vicente MD Primary Care Provider Encounter Details Date Type Department Care Team Description 12/15/2021 Telephone Cardiology at [facility] Barbara Mera, [place] [address] Social History Tobacco Use Types Packs/Day [...] MD [facility] [place], [place] [address] (Wo rk) 05/28/2022 Laboratory Appointment Lab 05/28/2022 Office Visit Cardiology Zulma Dolan MD [facility] [address] Liz Poole PA [facility] [place] [address] 06/10/2022 Office Visit Dermatology Laura Scherer MD [facility] [address] [place], [place] [address] (Wo rk) documented as of this encounter Visit Diagnoses Not on filedocumented in this encounter Care Teams Warehouse Record Clerk Relationship Specialty Start Date End Date Lovely Vicente MD PCP - General 04/16/15 [facility] [address] [place] [address] documented as of this encounter
--- OUTSIDE RECORDS SUMMARY | 2022-04-01 10:01 | XMS_ITS | Encounter Summary ---
:1945 [place] [address] Care Team Providers Name Role Phone Lovely Vicente MD Primary Care Provider Encounter Details Date Type Department Care Team Description 12/25/2021 Office Visit Cardiology [place] [facility] [place] Poole, Chronic systolic heart [facility] [place] [address] Cardiology Dept [phone] [place], [place] [address] Social History Tobacco Use [...] As per DC Summary - Ad[place] to [facility] [place] 12/08[place], transferred from [facility], respiratory distress with hypoxia 86% [...] mg PO daily in place of Lasix. [place] is new for him and he will [...] Antiplatelet (DAPT) Recommendations above ? TTE from [facility] 12/08/21 ?? 07/28/2019 Echocardiogram: SUMMARY: [...] regurgitation present. 07/07/2019 - 07/21/2019 Zio Patch Vulnerability Assessment Analyst The patient had a minimum heart [...] hyperkalemia 4.9 today 6. Post-op atrial fibrillation [id number] (CHF, HTN, DM, vascular disease, thromboembolism) [...] Description 05/28/2022 Appointment Cardiology Zulma Dolan MD [facility] [address] [place], [place] [address] (Wo rk) 05/28/2022 Laboratory Appointment Lab 05/28/2022 Office Visit Cardiology Zulma Dolan MD [facility] [place] [address] Liz Poole PA [facility] [place] [address] 06/10/2022 Office Visit Dermatology Laura Scherer MD [facility] ER [address] [place], [place] [address] (Mikayla alcaraz) documented as of this encounter Results (ABNORMAL) pro-Brain Natriuretic Peptide (12/25/2021 7:46 AM EDT) athologist Signature ProBNP 1,380 (H) <=124 [facility] pg[facility]mL [facility] Specimen Anatomical Collection Method Collection Time Receive d Time (Source) Location / / Volume Laterality Blood 12/25/2021 7:46 AM 8:01 EDT AM EDT Resulting Agency Comment Spec In Lab Zulma Plunkett MD CHEMISTRY ORDERABLES Performing Organization Address City/State/[place] [address] (ABNORMAL) Basic Metabolic Panel (non-fasting) (12/25/2021 7:46 AM EDT) athologist Signature Glucose Lvl 272 (H) 65 - [address] [facility] mg/dL [facility] [...] Chloride 95 (L) 98 - 107 mmol/L [facility] CO2 28 22 - 31 mmol/L [facility] Anion Gap 11 5 - 15 mmol/L [facility] Calcium 9.4 8.5 - 10.5 mg/dL [facility] Estimated GFR 36 (L) >=60 mL/min/1.73 m?? [facility] [...] Organization Address City/State/[place] [address] documented in this encounter Visit Diagnoses Diagnosis Chronic systolic heart failure documented in this encounter Care Teams Ladle Puller Relationship Specialty Start Date End Date Lovely Vicente MD PCP - General 04/16/[address] [place] [address] documented as of this encounter
--- OUTSIDE RECORDS SUMMARY | 2022-04-01 10:02 | XMS_ITS | Encounter Summary ---
:1945 Author Organization [facility] [place] [address] Care Team Providers Name Role Phone Lovely Vicente MD Primary Care Provider Encounter Details Date Type Department Care Team Description 12/07/2021 External Results Administration [facility] [place] [address] Social History Tobacco Use Types Packs/Day [...] Description 05/28/2022 Appointment Cardiology Zulma Dolan MD [facility] er Dr [place] [address] (Wo rk) 05/28/2022 Laboratory Appointment Lab 05/28/2022 Office Visit Cardiology Zulma Dolan MD [facility] [place] [address] Liz Poole PA [facility] [place] [address] 06/10/2022 Office Visit Dermatology Laura Scherer MD [facility] ER [address] [place], [place] [address] (Wo rk) documented as of [...] on filedocumented in this encounter Care Teams Ceramic Tiler Relationship Specialty Start Date End Date Lovely Vicente MD PCP - General 04/16/[address] [place] [address] documented as of this encounter
--- OUTSIDE RECORDS SUMMARY | 2022-04-01 10:02 | XMS_ITS | Encounter Summary ---
:1945 Author Organization [facility] [place] [address] Care Team Providers Name Role Phone Lovely Vicente MD Primary Care Provider Encounter Details Date Type Department Care Team Description 07/28/2019 Laboratory Appointment Lab 3L [facility] [place] [address] Social History Tobacco Use Types Packs/Day Years [...] MD [facility] [place], [place] [address] (Wo rk) 05/28/2022 Laboratory Appointment Lab 05/28/2022 Office Visit Cardiology Zulma Dolan MD [facility] [place] [address] Liz Poole PA [facility] [place] [address] 06/10/2022 Office Visit Dermatology Laura Scherer MD [facility] [address] [place] [address] (Wo rk) documented as of this encounter [...] athologist Signature ProBNP 647 (H) <=125 pg/mL [facility] Specimen Anatomical Collection Method Collection Time Receive d Time (Source) Location / / Volume Laterality Blood specimen 07/28/2019 8:36 AM 020 8:46 (specimen) EST AM EST Resulting Agency Comment Spec In Lab Danette Maxwell APRN CHEMISTRY ORDERABLES Performing Organization Address City/State/[place] [address] (ABNORMAL) Basic Metabolic Panel (non-fasting) (07/28/2019 8:36 AM EST) athologist Signature Glucose Lvl 153 65 - 199 [facility] mg/dL [facility]ORY [...] LABORATORY Estimated GFR 70 >=60 mL/min/1.73 m?? [facility] Comment: The eGFR was calculated using the CKD-EP I equation. As with all creatinine based estimates of kidney function, eGFR values calculated with the CKD-EPI equation are not accurate in patients wi th acute kidney failure, extremes of body mass or the acutely ill. [email or web address]/UCANnkf eGFR 81 >=60 mL/min/1.73 m?? [facility] Comment: The eGFR was calculated using the CKD-EP I equation. As with all creatinine based estimates of kidney function, eGFR values calculated with the CKD-EPI equation are not accurate in patients wi th acute kidney failure, extremes of body mass or the acutely ill. http://Mismi/[facility] Specimen Anatomical Collection Method Collection Time Receive d Time (Source) Location / / Volume Laterality Blood specimen 07/28/2019 8:36 AM 020 8:46 (specimen) EST AM EST Resulting Agency Comment Spec In Lab Danette Maxwell APRN CHEMISTRY ORDERABLES Performing Organization Address City/State/[place] [address] documented in this encounter Visit Diagnoses Diagnosis Chronic systolic heart failure documented in this encounter Care Teams Digester Operator Helper Relationship Specialty Start Date End Date Loveyl Vicente MD PCP - General 04/16/[address] [place] [address] documented as of this encounter
--- OUTSIDE RECORDS SUMMARY | 2022-04-01 10:02 | XMS_ITS | Encounter Summary ---
:1945 Author Organization [facility] [place] [address] Care Team Providers Name Role Phone Lovely Vicente MD Primary Care Provider Encounter Details Date Type Department Care Team Description 04/16/2021 Laboratory Appointment Lab 3L [facility] [place] [address] Social History Tobacco Use Types Packs/Day Years [...] MD [facility] [place], [place] [address] (Wo rk) 05/28/2022 Laboratory Appointment Lab 05/28/2022 Office Visit Cardiology Zulma Dolan MD [place] [address] Liz Poole PA [facility] [place] [address] 06/10/2022 Office Visit Dermatology Laura Scherer MD [facility] ER [address] [place], [place] [address] (Wo rk) documented as of this encounter [...] Organization Address City/State/[place] [address] (ABNORMAL) Basic Metabolic Panel (non-fasting) (04/16/2021 9:58 AM EDT) athologist Signature Glucose Lvl 77 65 - 199 [facility] mg/dL [facility] Comment: Diabetes: >=200 mg/dL plus [...] Organization Address City/State/[place] [address] documented in this encounter Visit Diagnoses Diagnosis Chronic systolic heart failure documented in this encounter Care Teams Reconciler Relationship Specialty Start Date End Date Lovely Vicente MD PCP - General 04/16/[address] [place] [address] documented as of this encounter
--- OUTSIDE RECORDS SUMMARY | 2022-04-01 10:02 | XMS_ITS | Encounter Summary ---
:1945 Author Organization [facility] [place] [address] Care Team Providers Name Role Phone Lovely Vicente MD Primary Care Provider Encounter Details Date Type Department Care Team Description 03/20/2021 Ancillary Procedure Radiology Library [place] [address] [place] [address] [phone] Social History Tobacco Use Types Packs/Day Years [...] Zulma Dolan MD [facility] [place] [address] (Wo rk) 05/28/2022 Laboratory Appointment Lab 05/28/2022 Office Visit Cardiology Zulma Dolan MD [facility] [place] [address] Liz Poole PA [facility] [place] [address] 06/10/2022 Office Visit Dermatology Laura Scherer MD [facility] ER [address] [place], [place] [address] (Wo rk) documented as of [...] Organization Address City/State/ZIP Code Phon e Number [place], [place] documented in this encounter Visit Diagnoses Not on filedocumented in this encounter Care Teams Mortgage Originator Relationship Specialty Start Date End Date Lovely Vicente MD PCP - General 04/16/[address] [place] [address] documented as of this encounter
--- OUTSIDE RECORDS SUMMARY | 2022-04-01 10:02 | XMS_ITS | Encounter Summary ---
:1945 Author Organization [facility] [place] [address] Care Team Providers Name Role Phone Lovely Vicente MD Primary Care Provider Encounter Details Date Type Department Care Team Description 03/20/2021 Ancillary Procedure Radiology Library [place] [address] [place] [address] [phone] Social History Tobacco Use Types Packs/Day Years [...] Dolan MD [facility] [place], [place] [address] (Wo rk) 05/28/2022 Laboratory Appointment Lab 05/28/2022 Office Visit Cardiology Zulma Dolan MD [facility] [place] [address] [facility] [place] [address] 06/10/2022 Office Visit Dermatology Laura Scherer MD [facility] ER [address] [place], [place] [address] (Wo rk) documented as [...] Organization Address City/State/ZIP Code Phon e Number [place], [place] documented in this encounter Visit Diagnoses Not on filedocumented in this encounter Care Teams Radio Message Router Relationship Specialty Start Date End Date Lovely Vicente MD PCP - General 04/16/[address] [place] [address] documented as of this encounter
--- OUTSIDE RECORDS SUMMARY | 2022-04-01 10:02 | XMS_ITS | Encounter Summary ---
:1945 Author Organization [facility] [place] [address] Care Team Providers Name Role Phone Lovely Vicente MD Primary Care Provider Encounter Details Date Type Department Care Team Description 12/08/2021 External Results Non-Invasive Cardiology Lab Mar y None [facility] [place] [address] Social History Tobacco Use Types Packs/Day [...] MD [facility] [place], [place] [address] (Wo rk) 05/28/2022 Laboratory Appointment Lab 05/28/2022 Office Visit Cardiology Zulma Dolan MD [facility] [place] [address] Liz Poole PA [facility] [place] [address] 06/10/2022 Office Visit Dermatology Laura Scherer MD [facility] [address] [place], [place] [address] (Wo [...] on filedocumented in this encounter Care Teams High School Librarian Relationship Specialty Start Date End Date Lovely Vicente MD PCP - General 04/16/[address] [place] [address] documented as of this encounter
--- OUTSIDE RECORDS SUMMARY | 2022-04-01 10:02 | XMS_ITS | Encounter Summary ---
:1945 Author Organization [facility] [place] [address] Care Team Providers Name Role Phone Lovely Vicente MD Primary Care Provider Reason for Visit Reason Comments Establish Care Atrial Fibrillation Congestive Heart Failure Cardiomyopathy Encounter Details Date Type Department Care Team Description 09/06/2019 [facility] Ischemic cardiomyopathy Osvaldo STRANGE [address] [place], [place] CARDIOLOGY DEPT. [address] [place] [address] [phone] Social History Tobacco Use Types Packs/Day Years [...] today For any questions, call my office: [phone] To access your health care information, go to the web at: [email or web address] (you will need to register) For educational materials: [email or web address] Karel [email or web address].[facility], Clinical Cardiac Electrophysiology, [facility], [facility] A Healthy Heart: [...] least 2 servings of fish a week. [place], mackerel, mcfadden, sardines, and chunk light tuna [...] irregular heartbeat. After you call 911, the gill box operator may tell you to chew 1 [...] more? Visit our health information library at [email or web address]. You can also view health information on [facility], your personal patient account. Log in or sign up today. Enter F075 in the search box to learn more about A Healthy Heart: After Your Visit. ?? [phone] [employer] documented in this encounter Progress Notes Karel Mcelroy MD - 09/06/2019 2:20 PM EST Images from the original note were not included. Section of Cardiology/Cardiac Electrophysiology [facility] Clinical Cardiac Electrophysiology Consult Patient ID Don Fatima 1945 [id number] Don Fatima is referred to the EP clinic by Danette Maxwell APRN PhD Chief Complaint Dyspnea on exertion Ischemic cardiomyopathy History This is a 74 y.o. male following up/being seen in clinic for evaluation for ongoing anticoagulation. He has a Ftcbr0Yarp score of ~ 6-7. 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, [...] on phone: None Gets together: None Attends congregation service: None Active member of club or [...] reviewed the ECG: sinus rhythm, 72 bpm, UT 140 ms, QRS 100 ms, QT 400 [...] EP clinic KAREL MCELROY MD Cardiac Electrophysiology [facility] T: [phone] F: [phone] minutes of this 40 minute encounter were spent in counselling, as described above Cc: MD Danette Cr APRN PhD Janett Espino DPM documented in this encounter Plan of Treatment Upcoming Encounters Date Type Specialty Care Team Description 05/28/2022 Appointment Cardiology Zulma Dolan MD [facility] [place], [place] [address] (Wo rk) 05/28/2022 Laboratory Appointment Lab 05/28/2022 Office Visit Cardiology Zulma Dolan MD [facility] [place] [address] Liz Poole PA [facility] [place] [address] 06/10/2022 Office Visit Dermatology Laura Scherer MD [facility] [address] [place], [place] [address] [...] 446 ms MUSE SYSTEM (Bezet) Calculated P [place] 37 degrees MUSE SYSTEM Calculated R [place] -23 degrees MUSE SYSTEM Calculated T [place] 116 degrees MUSE SYSTEM INTERPRETATION Normal sinus rhythm MUSE SYSTEM Inferior infarct (cited on or before 25-JAN-2013) ST & T wave abnormality, consider anterolateral ischemia Abnormal ECG When compared with ECG of 19-AUG-2017 10:23, No significant change was found Confirmed by MD Cande, Michael ([id number]) on 09/08/2019 10:22:4 7 AM Specimen Anatomical [...] disease documented in this encounter Care Teams Geodetic Technician Relationship Specialty Start Date End Date Lovely Vicente MD PCP - General 04/16/[address] [place] [address] documented as of this encounter
--- OUTSIDE RECORDS SUMMARY | 2022-04-01 10:02 | XMS_ITS | Encounter Summary ---
:1945 Author Organization [facility] [place] [address] Care Team Providers Name Role Phone Lovely Vicente MD Primary Care Provider Reason for Referral Diagnostic Test (Routine) - Closed Specialty Diagnoses / Procedures Referred By Contact Refer red To Contact Cardiology Diagnoses Chronic systolic heart failure Danette Maxwell APRN [facility] Non-Inv Card Lab Procedures Echocardiogram Transthoracic(Leb) [facility] [place] [address] [place] [address] Referral ID Status Reason Start Date Expiration Date Visits V isits Requested Authorized [id number] Closed Specialty 07/17/2019 09/14/2019 1 1 Service Requested Reason for Visit Diagnostic Test (Routine) - Closed Specialty Diagnoses / Procedures Referred By Contact Refer red To Contact Cardiology Diagnoses Chronic systolic heart failure Danette Maxwell APRN [facility] Non-Inv Card Lab Procedures Echocardiogram Transthoracic(Leb) [facility] [place] [address] [place] [address] Referral ID Status Reason Start Date Expiration Date Visits V isits Requested Authorized [id number] Closed Specialty 07/17/2019 09/14/2019 1 1 Service Requested Encounter Details Date Type Department Care Team Description 07/28/2019 Hospital Encounter Non-Invasive Chronic s ystolic heart [place] [address] Social History Tobacco Use Types Packs/Day [...] Dolan MD [facility] [place], [place] [address] (Wo rk) 05/28/2022 Laboratory Appointment Lab 05/28/2022 Office Visit Cardiology Zulma Dolan MD [facility] [place] [address] Liz Poole PA [facility] [place] [address] 06/10/2022 Office Visit Dermatology Laura Scherer MD [facility] DR TEJA GR-DERMAT [place], [place] [address] (Wo rk) documented as [...] Mccollum ? (Age): 1945(74y) Med Rec#: ? [id number] ?Sex: ?M ? Site Loc: ? [facility] ?Ht / Wt: ??172(cm)/81(kg) Pt. Loc: ?Echo Lab ?BSA: ?1.94 Study Date: ?? 07/28/2019 ?Pt. Type: Outpatient Tape: ? Referring: MARY ELLEN Reading: Ifeanyi Truong ([id number]) Cut Off Sawyer: Fadumo Flanagan RDCS, FASE Diagnosis: *Chronic systolic [...] E-wave Vmax ?1 ?m/sec ? MV deceleration ssxw371.5 ? msec ? MV A-wave Vmax ?1 [...] ? Pulmonic Valve/Qp:Qs ?Value ?Units (Range) ? IA end-diastolic Vma1.1 ?m/sec ? Wall Motion: Segment Name ?Rest ? Base-Anteroseptal ?? Normal ? Base-Anterior ? Normal ? Base-Anterolateral ??Normal ? Base-Posterolateral Normal ? Base-Inferior ? Akinetic ? Base-Inferoseptal ?? Normal ? Mid-Anteroseptal ?Normal ? Mid-Anterior ?Hypokinetic ? Mid-Anterolateral ?? Normal ? Mid-Posterolateral ??Normal ? Mid-Inferior ?Hypokinetic ? Mid-Inferoseptal ?Normal ? Alamo-Septal ? Normal ? Alamo-Anterior ? Hypokinetic ? Alamo-Lateral ?Normal ? Alamo-Inferior ? Akinetic ? Alamo-Tip ?Hypokinetic ? This report has been electronically sign ed by: _ Ifeanyi Truong M.D. ? 07/28/2019 0 8:38:01 Images reviewed and interpretation verif ied [facility] Cardiac Ultrasound Laboratory Procedure Note Ifeanyi Truong MD - 07/28/2019Formatt ing of this note might be different from the original. Procedure: Transthoracic Echocardiogram Patient: NATALYA MCBRIDE(Age): [birth year]74y) Med Rec#: [id number] Sex: M Site Loc: [facility] Ht / Wt: 172(cm)/81(kg) Pt. Loc: Echo Lab BSA: 1.94 Study Date: 07/28/2019 Pt. Type: Outpati ent Tape: Referring: MARY ELLEN Reading: Ifeanyi Truong ([id number]) Cut Off Sawyer: Fadumo Flanagan [facility] Diagnosis: *Chronic systolic (congestive) heart fa ilure [...] MV E-wave Vmax 1 m/sec MV deceleration oham858.5 msec MV A-wave Vmax 1 m/sec MV [...] 0.7 ratio Pulmonic Valve/Qp:Qs Value Units (Range) IA end-diastolic Vma1.1 m/sec Wall Motion: Segment Name Rest Base-Anteroseptal Normal Base-Anterior Normal Base-Anterolateral Normal Base-Posterolateral Normal Base-Inferior Akinetic Base-Inferoseptal Normal Mid-Anteroseptal Normal Mid-Anterior Hypokinetic Mid-Anterolateral Normal Mid-Posterolateral Normal Mid-Inferior Hypokinetic Mid-Inferoseptal Normal Alamo-Septal Normal Alamo-Anterior Hypokinetic Alamo-Lateral Normal Alamo-Inferior Akinetic Alamo-Tip Hypokinetic This report has been electronically sign ed by: _ Ifeanyi Truong M.D. 07/28/2019 08:38:0 1 Images reviewed and interpretation elvie hwang [facility] Cardiac Ultrasound Laboratory Danette A Hans QUINONES [...] Routine documented in this encounter Care Teams Copy Center Specialist Relationship Specialty Start Date End Date Lovely Vicente MD PCP - General 04/16/[address] [place] [address] documented as of this encounter
--- OUTSIDE RECORDS SUMMARY | 2022-04-01 10:02 | XMS_ITS | Encounter Summary ---
:1945 Author Organization [facility] [place] [address] Care Team Providers Name Role Phone Lovely Vicente MD Primary Care Provider Encounter Details Date Type Department Care Team Description 12/07/2021 Telephone Cardiology Eddi Briceño Jr., [facility] [place] [address] [facility] [phone] CARDIOLOGY DEPT [place], [place] [address] (Wo rk) Social History Tobacco [...] the OSH ED provider/staff member. Referring Location: [facility] Referring Provider: Marisela Dean, SANITATION LEAD [address] [place] [address] Don Veda Kushal 76 y.o. w / [...] bpm, LAFB, poor R wave progression, septal IA, and lateral STD, overall no significantchange from [...] Dolan MD [facility] [place] [address] (Wo rk) 05/28/2022 Laboratory Appointment Lab 05/28/2022 Office Visit Cardiology Zulma Dolan MD [facility] [place] [address] Liz Poole PA [facility] [place] [address] 06/10/2022 Office Visit Dermatology Laura Scherer MD [facility] DR TEJA GR[address]DERMAT [place], [place] [address] (Wo rk) documented as of this encounter Visit Diagnoses Not on filedocumented in this encounter Care Teams Director Of Manufacturing Relationship Specialty Start Date End Date Lovely Vicente MD PCP - General 04/16/15 [facility] [address] [place] [address] documented as of this encounter
--- OUTSIDE RECORDS SUMMARY | 2022-04-01 10:02 | XMS_ITS | Encounter Summary ---
:1945 [place] [address] Care Team Providers Name Role Phone Lovely Vicente MD Primary Care Provider Reason for Visit Reason Comments Skin Cancer Examination Encounter Details Date Type Department Care Team Description 03/20/2021 Office Visit Dermatology at [facility] Brennen Rene MD History of melanoma; [facility] History of dysplastic nevus; [address] Multiple benign nevi; [place] [address] [facility] [place] (seborrheic keratosis); [phone] [address]-DERMATOLOGY [place] (actinic keratosis) [place], [place] [address] Social History Tobacco Use Types [...] no SOCIAL HISTORY 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 Last visit at [facility] Derm: 01/02/2020 Medications: Reviewed in [...] FSE; history of Melanoma []Note routed to executive secretary social welfare [x]Recall has been placed in scheduling system []Appointment scheduled at checkout Scribe attestation: Yoana Pang LPN has performed the documentation for this encounter in the presence of and acting as a scribe for LAURA RENE MD I performed the above scribed service and agree with the accuracy of the documentation in this encounter. Reviewed and signed by: LAURA RENE MD Dermatology [facility] documented in this encounter Plan of Treatment Upcoming Encounters Date Type Specialty Care Team Description 05/28/2022 Appointment Cardiology TrudiZulma Knowles MD [facility] [place], [place] [address] (Wo rk) 05/28/2022 Laboratory Appointment Lab 05/28/2022 Office Visit Cardiology Zulma Dolan MD [facility] [place] [address] Liz Poole PA [facility] [place] [address] 06/10/2022 Office Visit Dermatology Laura Rene MD [facility] DR TEJA GR-DERMAT [place], [place] [address] (Wo rk) documented as of this encounter Visit Diagnoses Diagnosis History of melanoma Personal history of malignant melanoma o f skin History of dysplastic nevus Personal history of diseases of skin and subcutaneous tissue Multiple benign nevi Benign neoplasm of skin, site unspecifie d SK (seborrheic keratosis) Other seborrheic keratosis [place] (actinic keratosis) Actinic keratosis documented in this encounter Care Teams Screening Technician Relationship Specialty Start Date End Date Lovely Vicente MD PCP - General 04/16/[address] [place] [address] documented as of this encounter
--- OUTSIDE RECORDS SUMMARY | 2022-04-01 10:02 | XMS_ITS | Encounter Summary ---
:1945 Author Organization [facility] [place] [address] Care Team Providers Name Role Phone Lovely Vicente MD Primary Care Provider Encounter Details Date Type Department Care Team Description 11/07/2019 TH Visit Cardiology at [facility] Danette Maxwell (arteriosclerotic heart disease); (TeleHealth) [facility] STACIE Gomes Cardiomyopathy, ischemic; Drive [facility] S/P CABG x 3; [place], [place] (obstructive sleep apnea) on CPAP [phone] CARDIOLOGY [phone] [place], [place] [address] Social History Tobacco Use Types [...] regurgitation present. 07/07/2019 - 07/21/2019 Zio Patch Caption Writer The patient had a minimum heart rate [...] at last check 6. Post-op atrial fibrillation [id number] (CHF, HTN, DM, vascular disease, thromboembolism) Amiodarone discontinued Continue coumadin INR managed by PCP 7. PAD 08/06/2017: Right 1st, 2nd, 3rd toe amputation 08/11/2017: Left??femoral arterial access, RLE??angiogram, Balloon angioplasty of R PT with Eleazar 2.5 x 80 10/25/2017: right popliteal-pedal bypass at [facility] Continue Coumadin 8. Hypothyrodism S/p thyroidectomy [...] Cardiology Zulma Dolan MD [facility] [place], [place] [address] (Wo rk) 05/28/2022 Laboratory Appointment Lab 05/28/2022 Office Visit Cardiology Zulma Dolan MD [facility] [place] [address] Liz Poole PA [facility] [place] [address] 06/10/2022 Office Visit Dermatology Laura Scherer MD [facility] DR [address]-DERMAT [place], [place] [address] (Wo rk) documented as of this encounter Visit Diagnoses Diagnosis ASHD (arteriosclerotic heart disease) Coronary atherosclerosis of unspecified type of vessel, chicken ranch or graft Cardiomyopathy, ischemic Other specified forms of chronic ischemi c heart disease S/P CABG x 3 Postsurgical aortocoronary bypass status [place] (obstructive sleep apnea) on CPAP Obstructive sleep apnea (adult) (pediatr ic) documented in this encounter Care Teams Kennel Manager Dog Track Relationship Specialty Start Date End Date Lovely Vicente MD PCP - General 04/16/[address] [place], [place] [address] documented as of this encounter
--- OUTSIDE RECORDS SUMMARY | 2022-04-01 10:02 | XMS_ITS | Encounter Summary ---
:1945 Author Organization [facility] Address [facility] [place] [address] Care Team Providers Name Role Phone Lovely Vicente MD Primary Care Provider Encounter Details Date Type Department Care Team Description 01/02/2020 Office Visit Dermatology at [facility] ctinic keratoses; Abdelrahman HOOPER MD History of melanoma; [address] [facility] History of dysplastic nevus; [place] [address] Multiple benign nevi; [phone] [facility] Seborrheic yossi [place]; RD-DERMATOLGY Skin exam for malignant neoplasm [place], [place] [address] Social History Tobacco Use Types [...] Zulma Dolan MD [facility] [place], [place] [address] (Wo lissa) 05/28/2022 Laboratory Appointment Lab 05/28/2022 Office Visit Cardiology Zluma Dolan MD [facility] [place] [address] Liz Poole PA [facility] [place] [address] 06/10/2022 Office Visit Dermatology Laura Scherer MD [facility] DR TEJA RG-DERMAT [place], [place] [address] (Wo lissa) documented as of [...] skin documented in this encounter Care Teams Trailer Park Manager Relationship Specialty Start Date End Date Lovely Vicente MD PCP - General 04/16/15 [facility] [address] [place] [address] documented as of this encounter
--- OUTSIDE RECORDS SUMMARY | 2022-04-01 10:02 | XMS_ITS | Encounter Summary ---
:1945 Author Organization [facility] [place] [address] Care Team Providers Name Role Phone Lovely Vicente MD Primary Care Provider Encounter Details Date Type Department Care Team Description 02/19/2020 Telephone Dermatology at [facility] Ariana Wilder LPN [address] [place] [address] Social History Tobacco Use Types Packs/Day [...] Zulma Dolan MD [facility] [place], [place] [address] (Wo rk) 05/28/2022 Laboratory Appointment Lab 05/28/2022 Office Visit Cardiology Zulma Dolan MD [facility] [place] [address] Liz Poole PA [facility] [place] [address] 06/10/2022 Office Visit Dermatology Laura Scherer MD [facility] DR [address]-DERMAT [place], [place] [address] (Wo rk) documented as of this encounter Visit Diagnoses Not on filedocumented in this encounter Care Teams Ceramic Tiler Relationship Specialty Start Date End Date Lovely Vicente MD PCP - General 04/16/[address] [place] [address] documented as of this encounter
--- OUTSIDE RECORDS SUMMARY | 2022-04-01 10:02 | XMS_ITS | Encounter Summary ---
:1945 Author Organization [facility] [place] [address] Care Team Providers Name Role Phone Lovely Vicente MD Primary Care Provider Encounter Details Date Type Department Care Team Description 03/20/2021 Ancillary Procedure Radiology Library [place] [address] [place] [address] [phone] Social History Tobacco Use Types Packs/Day Years [...] MD [facility] er [address] [place], [place] [address] (Wo rk) 05/28/2022 Laboratory Appointment Lab 05/28/2022 Office Visit Cardiology Zulma Dolan MD [facility] [place] [address] Liz Poole PA [facility] [place] [address] 06/10/2022 Office Visit Dermatology Laura Scherer MD [facility] ER DR [address]-DERMAT [place], [place] [address] (Wo rk) documented as of [...] Organization Address City/State/ZIP Code Phon e Number [place], [place] documented in this encounter Visit Diagnoses Not on filedocumented in this encounter Care Teams Lathe Operator Contact Lens Relationship Specialty Start Date End Date Lovely Vicente MD PCP - General 04/16/[address] [place] [address] documented as of this encounter
--- OUTSIDE RECORDS SUMMARY | 2022-04-01 10:02 | XMS_ITS | Encounter Summary ---
:1945 [place] [address] Care Team Providers Name Role Phone Lovely Vicente MD Primary Care Provider Encounter Details Date Type Department Care Team Description 04/16/2021 Office Visit Cardiology at [facility] Liz Poole, Chronic systolic heart [facility] [place] [address] Cardiology Dept [phone] [place], [place] [address] Social History Tobacco Use Types [...] was feeling good. 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 07/07/2019 - 07/21/2019 Zio Patch Gypsum Block Setter The patient had a minimum heart rate [...] K+ 5.2 today 6. Post-op atrial fibrillation [id number] (CHF, HTN, DM, vascular disease, thromboembolism) On warfarin - recent labile INR Will discuss with PCP, option of Luis Daniel 7. PAD 08/06/2017: Right 1st, 2nd, 3rd toe amputation 08/11/2017: Left??femoral arterial access, RLE??angiogram, Balloon angioplasty of R PT 10/25/2017: right popliteal-pedal bypass at [facility] 8. Hypothyrodism S/p thyroidectomy for goiter [...] Zulma Dolan MD [facility] [place], [place] [address] (Wo rk) 05/28/2022 Laboratory Appointment Lab 05/28/2022 Office Visit Cardiology Zulma Dolan MD [facility] [place] [address] Liz Poole PA [facility] [place] [address] 06/10/2022 Office Visit Dermatology Laura Scherer MD [facility] DR TEJA GR-DERMAT [place], [place] [address] (Wo rk) documented as of this encounter Results (ABNORMAL) Basic Metabolic Panel (non-fasting) (04/16/2021 9:58 AM EDT) athologist Signature Glucose Lvl 77 65 - 199 [facility] mg/dL [facility] [...] estions. Chloride 103 98 - 107 mmol/L [facility] CO2 28 22 - 31 mmol/L [facility] Anion Gap 9 5 - 15 mmol/L [facility] Calcium 9.3 8.5 - 10.5 mg/dL [facility] Estimated GFR 55 (L) >=60 mL/min/1.73 m?? [facility] Comment: This patient? s estimated [...] Organization Address City/State/[place] [address] (ABNORMAL) pro-Brain Natriuretic Peptide (04/16/2021 9:58 AM EDT) P athologist Signature ProBNP 523 (H) <=124 pg/mL [facility] Specimen Anatomical Collection Method Collection Time Receive d Time (Source) Location / / Volume Laterality Blood 04/16/2021 9:58 AM EDT 10:02 AM EDT Resulting Agency Comment Spec In Lab Zulma Plunkett MD CHEMISTRY ORDERABLES Performing Organization Address City/State/ZIP [place] [address] documented in this encounter Visit Diagnoses Diagnosis Chronic systolic heart failure documented in this encounter Care Teams Table Hand Relationship Specialty Start Date End Date Lovely Vicente MD PCP - General 04/16/[address] [place] [address] documented as of this encounter
--- OUTSIDE RECORDS SUMMARY | 2022-04-01 10:02 | XMS_ITS | Encounter Summary ---
:1945 [place] [address] Care Team Providers Name Role Phone Lovely Vicente MD Primary Care Provider Encounter Details Date Type Department Care Team Description 03/20/2021 Telephone Neurology at [facility] Hugo Gaston MD [facility] [place] [address] [place] [address] [phone] (Wo rk) Social History Tobacco Use Types [...] Gaston MD Department of Neurology Pager # [phone] documented in this encounter Plan of Treatment Upcoming Encounters Date Type Specialty Care Team Description 05/28/2022 Appointment Cardiology Zulma Dolan MD [facility] [place], [place] [address] (Wo rk) 05/28/2022 Laboratory Appointment Lab 05/28/2022 Office Visit Cardiology Zulma Dolan MD [facility] [place] [address] Liz Poole PA [facility] [place] [address] 06/10/2022 Office Visit Dermatology Laura Scherer MD [facility] DR [address]DERMAT [place], [place] [address] (Wo rk) documented as of this encounter Visit Diagnoses Not on filedocumented in this encounter Care Teams Machine Heel Seat Fitter Relationship Specialty Start Date End Date Lovely Vicente MD PCP - General 04/16/[address] [place] [address] documented as of this encounter
--- OUTSIDE RECORDS SUMMARY | 2022-04-01 10:02 | XMS_ITS | Encounter Summary ---
:1945 [place] [address] Care Team Providers Name Role Phone Lovely Vicente MD Primary Care Provider Encounter Details Date Type Department Care Team Description 12/07/2021 Ancillary Procedure [facility] Lovely murillo MD [facility] [address] [address] [place], [place] [phone] (Wo lissa) [address] [phone] Social History Tobacco Use Types Packs/Day Years [...] Dolan MD [facility] [address] [place] [address] (Wo rk) 05/28/2022 Laboratory Appointment Lab 05/28/2022 Office Visit Cardiology Zulma Dolan MD [facility] [place] [address] Liz Poole PA [facility] [place] [address] 06/10/2022 Office Visit Dermatology Laura Scherer MD [facility] DR [address]DERMAT [place], [place] [address] (Wo rk) documented [...] Organization Address City/State/ZIP Code Phon e Number [place], [place] documented in this encounter Visit Diagnoses Not on filedocumented in this encounter Care Teams Meat Puller Relationship Specialty Start Date End Date Lovely Vicente MD PCP - General 04/16/[address] [place] [address] documented as of this encounter
--- OUTSIDE RECORDS SUMMARY | 2022-04-01 10:02 | XMS_ITS | Encounter Summary ---
:1945 Author Organization [facility] [place] [address] Care Team Providers Name Role Phone Lovely Vicente MD Primary Care Provider Reason for Visit Auth/Cert Specialty Diagnoses / Procedures Referred By Contact Refer red To Contact Diagnoses NSTEMI Procedures emerg ipi Referral ID Status Reason Start Date Expiration Date Visits Requ ested Visits Authorized [id number] 1 1 Encounter Details Date Type Department Care Team Description 12/10/2021 Surgery Textile Machinery Sales Representative Asa Coulter MD CARDIAC CATHETERIZATION [facility] [place] [address] [place] [address] [phone] (Wo rk) Social History Tobacco Use Types [...] Don Fatima Patient Age: 76 y.o. Language: Vincentian Race: White Ethnicity: Not nor Admit date: [...] Peter PA-C Kelly LaFlamme PA-C Cardiovascular Medicine [phone] Discharge Diagnoses (Hospital Problems) and Secondary Diagnoses [...] 3.75 guiding catheter and a 3.5 Fr [place] 20 Mhz using Manual pullback. Imaging was successful. Image quality was good. The ostial LCX showed moderate diffuse atherosclerotic plaque with scattered three quadrant calcification. Measurements were performed after pre-dilation. Post Intervention: The stent was well expanded and apposed. Intravascular Ultrasound was performed in the distal LM using a 7 Fr EBU 3.75 guiding catheter and a 3.5 Fr [place] 20 Mhz using Manual pullback. Imaging was successful. Image quality was good. The distal LM showed moderate diffuse atherosclerotic plaque. Post Intervention: The stent was well expanded and apposed. Indication for Intervention: Coronary intervention was indicated for primary therapy for an acute myocardial infarction. The priority for the procedure was Urgent. The [facility] indication for the procedure was [...] may require modification of this regimen. Consult [facility] Interventional Cardiology for [...] congestion and cardiomegaly. ?? TTE from [facility] 12/08/21 ? Prior Cardiac Studies: TTE [...] thyroidectomy in 2012 who presented to [facility] with 1 week progressing breathlessness with [...] with Liz Poole PA-C. ?? At [facility], respiratory distress with hypoxia 86% on [...] and diet drinks did not cause his MD. This is what his thought was the [...] appointments: During 8am-5pm Wednesday through Wednesday call [phone] to speak with a nurse in the cardiology clinic All other times call [phone] and ask to speak to the brand activation manager harmonica maker. Return to work: One week Driving: No driving for 48 hours after catheterization. Follow up Appointments: PCP Lovely Vicente MD [phone] to see patient at the end of December for annual check up. Patient to see Dr. Lorenzana at 1120 am at December 19 for a post hospital check up. Laser Set Up Operator Dr. De Oliveira to see you in [facility]. Left a message for office to set a date and time. Please call [phone] Nobles to see the patient for a same day cath in 2-3 weeks from now. Office to call with a date and time. For questions please call [phone] Home oxygen therapy: N/A Arrangements for VNA/home care: none Future Appointments and Orders Future Orders Complete By Expires Basic Metabolic Panel (non-fasting) [LAB15 Custom] 12/19/2021 (Approximate) 12/12/2022 Process Instructions: INCLUDES: Calcium, BUN, Creat, GFR, Glucose, Lytes Scheduling Instructions: Comments: Questions: Referral to Cardiac Rehab [CYN213 Custom] As directed Process Instructions: If no [...] appointments: During 8am-5pm Wednesday through Wednesday call [phone] to speak with a nurse in the cardiology clinic All other times call [phone] and ask to speak to the brand activation manager harmonica maker. Return to work: One week Driving: No driving for 48 hours after catheterization. Follow up Appointments: PCP Lovely Vicente MD [phone] to see patient at the end of December for annual check up. Patient to see Dr. Lorenzana at 1120 am at December 19 for a post hospital check up. Laser Set Up Operator Dr. De Oliveira to see you in [facility]. Left a message for office to set a date and time. Please call [phone] Nobles to see the patient for a same day cath in 2-3 weeks from now. Office to call with a date and time. For questions please call [phone] Home oxygen therapy: N/A Arrangements for VNA/home [...] Progress Note Patient Name: Don Fatima Service: SURGEON CHIEF / PA Responsible Attending: Ifeanyi Truong MD [...] 80mg IV x1 in cardiac cath lab manager. Tolerated procedure well. Home today at [...] vascular congestion and cardiomegaly. TTE from [facility] 12/08/21 Prior Cardiac Studies: TTE 07/28/2019 [...] with MD Janneth Neville PA 12/12/2021 Pager [phone] Associated attestation - Ifeanyi Truong MD - [...] ratio for each meal) Desirae Jett APRN [facility] Endocrinology Diabetes Management Pager [phone] 20 minutes of this 35 minute visit [...] Progress Note Patient Name: Don Fatima Service: SURGEON CHIEF / PA Responsible Attending: Iker Cuevas MD [...] + trop. Known CAD with hx of MD and CABG. DM. MARIA VICTORIA.ICM. ??? ASHD [...] 80mg IV x1 in cardiac cath lab manager. Tolerated procedure well. Review of Systems: [...] Intake/Output Summary (Last 24 hours) at 12/11/2021 0924 Last data filed at 12/11/2021 0508 Gross [...] vascular congestion and cardiomegaly. TTE from [facility] 12/08/21 Prior Cardiac Studies: TTE 07/28/2019 [...] and answered his questions. Iker Cuevas MD [facility] Total time spent on review of records prior to visit, face to face time with patient during visit, documentation, and coordination of care with other clinicians: 25 minutes. . Iker Cuevas MD - 12/10/2021 12:30 PM EDT Images from the original note were not included. Inpatient Cardiology Progress Note Patient Name: Don Fatima Service: SURGEON CHIEF / PA Responsible Attending: Iker Cuevas MD Reason for continued hospitalization: NSTEMI- s/p R/LHC- PCW 27, occluded SVGs s/p PCI to ostial LCX ADHF and hypoxia- IV diuresis Active Problems: Active Hospital Problems Diagnosis ??? Admitted with 2 days of sob, hypoxemia, and + trop. Known CAD with hx of MD and CABG. DM. MARIA VICTORIA.ICM. ??? ASHD [...] 80mg IV x1 in cardiac cath lab manager. Tolerated procedure well. Review of Systems: [...] vascular congestion and cardiomegaly. TTE from [facility] 12/08/21 Prior Cardiac Studies: TTE 07/28/2019 [...] Discussed with MD Migdalia Peter PA-C Pager #[phone] 12/10/2021 Cardiology Attending Note I have seen [...] updated and given pictures. Iker Cuevas MD [facility] Total time spent on review of records prior to visit, face to face time with patient during visit, documentation, and coordination of care with other clinicians: 35 minutes. Iker Cuevas MD - 12/09/2021 7:28 AM EDT Images from the original note were not included. Inpatient Cardiology Progress Note Patient Name: Don Fatima Service: SURGEON CHIEF / PA Responsible Attending: Iker Cuevas MD Reason for continued hospitalization: NSTEMI- awaiting R/LHC ADHF and hypoxia- IV diuresis, R/LHC Active Problems: Active Hospital Problems Diagnosis ??? Admitted with 2 days of sob, hypoxemia, and + trop. Known CAD with hx of MD and CABG. DM. MARIA VICTORIA.ICM. ??? ASHD [...] vascular congestion and cardiomegaly. TTE from [facility] 12/08/21 Prior Cardiac Studies: TTE 07/28/2019 [...] Discussed with MD Migdalia Peter PA-C Pager #[phone] 12/09/2021 Cardiology Attending Note I have seen and examined the patient. I agree with the findings above. Developed CHF early this am despite getting more iv lasix last evening. Feeling better now. INR > 2. Lungs still wet at base. Echo at [facility] showed EF 35% with mild mod MR slightly lower than last value here. -vit K 2.5 orally to facilitate correction of INR- this will take 12-24 hours to take effect -furosemide 80 mg iv now -postpone right and left heart cath until tomorrow given INR and ADHF -increase statin to achieve LDL < 70 -CPAP tonight Iker Cuevas MD [facility] Total time spent on review of [...] + trop. Known CAD with hx of MD and CABG. DM. MARIA VICTORIA.ICM. ??? ASHD [...] thyroidectomy in 2012 who presented to [facility] with 1 week progressing breathlessness with [...] 03/2021 with Liz Poole PA-C. At [facility], respiratory distress with hypoxia 86% on [...] [facility] ??? PRO AMPUTATION FOOT, TRANSMETATARSAL Right 08/09/2017 AMPUTATION, TRANSMETATARSAL (WRVU 12.71) performed by Yonathan Smith MD at [facility] MAIN OR ??? PRO CABG, ARTERIAL, SINGLE N/A 07/07/2017 @CABG, USING ARTERIAL GRAFT;SINGLE ARTERIAL GRAFT (WRVU 33.75) performed by Yuan Retana MD at [facility] MAIN OR ??? PRO CABG, ARTERY-VEIN, TWO N/A 07/07/2017 @CABG, TWO VENOUS GRAFTS & ARTERIAL GRAFT (WRVU 7.93) performed by Yuan Retana MD at [facility] MAIN OR ??? PRO COLONOSCOPY, REMV LESN, SNARE 01/16/2014 COLONOSCOPY, POLYPECTOMY, REMOVAL LESION BY SNARE performed by Nohemi Jaimes MD at [facility] ENDOSCOPY ??? PRO DRESSING CHANGE UNDER ANESTHESIA Right 08/11/2017 (MSURG) DRESSING CHANGE (FOR OTHER THAN IVAN) UNDER ANES. (WRVU 0.86) performed by Lamar Smith MD at [facility] MAIN OR ??? PRO ENDOSCOPY W/VIDEO-ASST VEIN HARVEST, CABG Right 07/07/2017 ENDOSCOPIC HARVEST VEIN(S) FOR CABG (WRVU 0.31) performed by Yuan Retana MD at [facility] MAIN OR ??? PRO THYROIDECTOMY 03/28/2013 THYROIDECTOMY, TOTAL OR COMPLETE performed by Manny Mcknight MD at [facility] MAIN OR Significant Family History: [...] 65 - 199 mg/dL Labs at [facility] 12/08/2021-troponin I 8004 (UN L <60), [...] Monitor for ADRs. Trend troponins. Admission EKG. [facility] 12/09; consented. TTE. Telemetry monitoring, [...] code #Diet-carb control; n.p.o. after midnight for [facility] #DVT prophy- heparin infusion #GI prophy- PPI Discussed with MD Morgan Peter PA-C APP2 pager [phone] 12/08/2021 Cardiology Attending Note I have seen [...] is type 1 due to graft or kalispel coronary stenosis vs acute injury from CHF. 3. PAF: currrently in NSR. Have replaced warfarin with heparin 4. PAD: stable 5. DM: stable 6. CKD: will monitor and minimize contrast. Pt very appreciative of Dr. Yuan Retana's care in 2018. Will let him know patient is here. Iker Cuevas MD [facility] documented in this encounter Miscellaneous Notes [...] Type: *No Product type* / Secondary Insurance: [employer] [place] Prescription Coverage: Yes This plan was [...] cath without complications. Migdalia Parker PA-C Pager #[phone] 12/10/2021 Initial Assessments - Nick Georges RN [...] COVID test: Lab Results Component Value Date [id number] Not Detected 12/08/2021 Past medical History: Past [...] spouse would be surrogate decision maker per [place] surrogate decision making law. (Only good for 180 days) Any patient receiving care at [facility] must abide by [place] law. The hierarchy for surrogate decision making [...] (i) The agent with financial power of health care attorney or a conservator appointed in accordance [...] - standard, cane - straight Home Address: [address] [place] [address] [place] [address] Social & Family Supports: All names listed below confirmed with patient as current and correct Extended Emergency Contact Information Primary Emergency Contact: Kisha Fatima Address: [address] [place] [address] [place] [address] [facility] Mobile Relation: Spouse Secondary Emergency Contact: Elba Swenson Address: [place], [place] [id number] [place] [address] Mobile Relation: Child Current Care Provided by: [...] Type: *No Product type* / Secondary Insurance: [facility] Prescription Coverage: Yes Preferred Pharmacy: [facility] [place] [phone] [facility] [id number] - [place], [place] - [address] [place] [address] [address] Status: Patient is a : unable to assess Primary Care Provider: Lovely Vicente MD [phone] Patient/Caregiver Goals of Treatment: Get out of here Potential Needs for Transition of Care: none Agency Referrals: none patient has used [facility] in the past Transportation: no concerns Transportation Anticipated: family or friend will provide Concerns to be Addressed: patient refuses services, discharge planning Assessment: Patient is admitted to [facility] Service pager [phone] for 76 y.o.??male??with h/o??CAD s/p 3vCABG (THOMPSON-LAD, [...] status on current unit. Nick Georges RN dough cutting machine operator, Office of Care Management Pager: [phone] Brief Op Note - Vitaliy Nobles MD - 12/10/2021 8:31 AM EDT Images from the original note were not included. [facility] [place] [address] CORONARY ANGIOGRAM AND PERCUTANEOUS CORONARY INTERVENTION REPORT Patient: Don Fatima : 1945 MR number: [id number] Date of Service: 12/10/2021 Plug Paster: Vitaliy Nobles MD Fellow: Rancho Woods MD [...] warfarin, T2DM, CKDIII, HTN, HLD, COPD, MARIA VICTOIRA, R metatarsal amputation and hypothyroidism s/p thyroidectomy 2012 who was admitted on 12/08/2021 currently being treated for hypoxia, dys. We are being consulted to assist with diabetes management and to provide a review of jail diabetes care. Diabetes History: Don Fatima has had diabetes for 10 years. He has been on insulin for the last several years andis managed by his PCP. Lives in [place], [place] with his . States that he [...] your patient Desirae Jett APRN Endocrinology Pager [phone] 70 minutes of this 80 minute visit [...] + trop. Known CAD with hx of MD and CABG. DM. MARIA VICTORIA.ICM. ??? ASHD [...] to remain on Med/Surg floor, please page [phone] for any further questions or concerns. LANDON [...] for further details. STEPHANIE Rebolledo 12/08/2021 Pager [phone] documented in this encounter Plan of Treatment Upcoming Encounters Date Type Specialty Care Team Description 05/28/2022 Appointment Cardiology Zulma Dolan MD [facility] [place], [place] [address] (Wo rk) 05/28/2022 Laboratory Appointment Lab 05/28/2022 Office Visit Cardiology Zulma Dolan MD [facility] [place] [address] Liz Poole PA [facility] [place] [address] 06/10/2022 Office Visit Dermatology Laura Scherer MD [facility] DR [address]JA [place], [place] [address] (Wo rk) Scheduled Referrals Name [...] POC Glucose 215 (H) 65 - 199 [facility] mg/dL [facility] LABORATORY Comment: Supplemental ranges: <140 mg/dL before meals <180 mg/dL all other times of the day Specimen Anatomical Collection Method Collection Time Receive d Time (Source) Location / / Volume Laterality Blood 12/12/2021 7:42 AM 7:42 EDT AM EDT Ifeanyi Truong MD POINT OF CARE TEST ORDERABLE S Performing Organization Address City/State/[place] [address] (ABNORMAL) Differential, Automated (12/12/2021 4:51 AM EDT) athologist Signature Neutrophils % 75.4 % [facility] LABORATORY Neutr Abs (ANC) 5.95 1.70 - [facility] 6.10 [facility] x10(3)/[facility] LABORATORY Lymphocytes % 12.2 % [facility] LABORATORY Lymphocytes Abs 1.0 0.9 - 3.2 [facility] x10(3)/[facility] LABORATORY Monocytes % 9.5 % [facility] LABORATORY Monocyte Abs 0.8 0.3 - 0.9 [facility] x10(3)/[facility] LABORATORY Eosinophils % 1.8 % [facility] LABORATORY Eosinophils Abs 0.1 0.0 - 0.4 [facility] x10(3)/[facility] LABORATORY Basophils % 0.5 % [facility] LABORATORY Basophils Abs 0.0 0.0 - 0.1 [facility] x10(3)/[facility] LABORATORY Immature Gran % 0.60 [...] Address City/State/ZIP Code Phon e Number [address] (ABNORMAL) Hemogram (12/12/2021 4:51 AM EDT) Analysis Performed At Patho logist Time Signature WBC 7.9 4.0 - 9.5 [facility] x[facility](3[facility] LABORATORY RBC 4.19 (L) 4.58 - [place] 5.54 [facility] x10(6)/[facility] LABORATORY Hemoglobin 12.1 (L) 13.7 - [facility] 16.5 g/dL [facility] LABORATORY Hematocrit 36.7 (L) 40.5 - [facility] 48.5 % [facility] LABORATORY MCV 87.6 82.9 - [facility] 93.1 [facility] LABORATORY MCH 28.9 27.5 - [place] 32.1 pg [facility] LABORATORY MCHC 33.0 32.0 - [place] 35.7 g/dL [facility] LABORATORY Platelets 231 145 - 357 [facility] x10(3)/[facility] LABORATORY RDWSD 47.2 (H) 36.0 - [facility] [place] 45.0 [facility] LABORATORY RDWCV 14.6 (H) 11.4 - [facility] [place] 13.8 % [facility] LABORATORY MPV 9.5 7.6 - 12.9 [facility] nRBC % Auto 0.0 % [facility] LABORATORY nRBC Abs Auto 0.000 0.000 - [place] 0.000 [facility] x10(3)/[facility] LABORATORY Specimen Anatomical Collection Method Collection Time Receive d Time (Source) Location / / Volume Laterality Blood 12/12/2021 4:51 AM 2 5:06 EDT AM EDT Resulting Agency Comment Spec In Lab Bijan Sun MD HEMATOLOGY ORDERABLES Performing Organization Address City/State/ZIP Code Phon e Number [place], [place] [id number] [place] [address] (ABNORMAL) Prothrombin Time (12/12/2021 4:51 AM EDT) athologist Signature PT 14.9 (H) 9.4 - 12.5 [facility] sec [facility] LABORATORY INR 1.3 [facility] [...] Organization Address City/State/[place] [address] (ABNORMAL) BMP w/fasting Glucose (12/12/2021 4:51 AM EDT) athologist Signature Glucose 152 (H) 65 - 99 [facility] Fasting mg/dL [facility] LABORATORY Comment: ?Fasting* Glucose Interpretive C riteria [...] of Diabetes Mellitus, Position Statement from the [place] [employer]. ??Diabete s Care, Volume 33, Supplement 1, Jul 2009 BUN 52 (H) 10 - 20 mg/dL [facility] LABORATORY Creatinine 1.72 (H) 0.80 - 1.50 mg/dL [facility] LABORATORY Sodium 143 135 - 145 mmol/L [facility] LABORATORY Potassium 3.9 3.5 - 5.0 mmol/L [facility] LABORATORY Calcium 8.9 8.5 - 10.5 mg/dL [facility] LABORATORY Estimated GFR 38 (L) >=60 [...] Organization Address City/State/Z[place] [address] Magnesium (12/12/2021 4:51 AM EDT) athologist Signature Magnesium 1.02 0.69 - 1.07 [facility]/L [facility] LABORATORY Specimen Anatomical Collection Method Collection Time Receive d Time (Source) Location / / Volume Laterality Blood 12/12/2021 4:51 AM 2 5:06 EDT AM EDT Resulting Agency Comment Spec In Lab Iker Cuevas MD CHEMISTRY ORDERABLES Performing Organization Address City/State/ZIP Code Phon e Number [address] POCT Glucose (12/12/2021 3:43 AM EDT) athologist Signature POC Glucose 138 65 - 199 [place] mg/dL [facility] LABORATORY Comment: Supplemental ranges: <140 mg/dL before meals <180 mg/dL all other times of the day Specimen Anatomical Collection Method Collection Time Receive d Time (Source) Location / / Volume Laterality Blood 12/12/2021 3:43 AM 2 3:43 EDT AM EDT Iker Cuevas MD POINT OF CARE TEST ORDERABLE S Performing Organization Address City/State/ZIP Code Phon e Number [address] POCT Glucose (12/11/2021 11:44 PM EDT) athologist Signature POC Glucose 124 65 - [address] [facility] [place] mg/dL [facility] LABORATORY Comment: Supplemental ranges: <140 mg/dL before meals <180 mg/dL all other times of the day Specimen Anatomical Collection Method Collection Time Receive d Time (Source) Location / / Volume Laterality Blood 12/11/2021 11:44 12/11/2021 PM EDT 11:44 PM EDT Iker Cuevas MD POINT OF CARE TEST ORDERABLE S Performing Organization Address City/State/ZIP Code Phon e Number [address] (ABNORMAL) POCT Glucose (12/11/2021 8:12 PM EDT) athologist Signature POC Glucose 200 (H) 65 - 199 [place] mg/dL [facility] LABORATORY Comment: Supplemental ranges: <140 mg/dL before meals <180 mg/dL all other times of the day Specimen Anatomical Collection Method Collection Time Receive d Time (Source) Location / / Volume Laterality Blood 12/11/2021 8:12 PM 2 8:12 EDT PM EDT Iker Cuevas MD POINT OF CARE TEST ORDERABLE S Performing Organization Address City/State/[place] [address] (ABNORMAL) POCT Glucose (12/11/2021 6:50 PM EDT) athologist Signature POC Glucose 245 (H) 65 - 199 [place] mg/dL [facility] LABORATORY Comment: Supplemental ranges: <140 mg/dL before meals <180 mg/dL all other times of the day Specimen Anatomical Collection Method Collection Time Receive d Time (Source) Location / / Volume Laterality Blood 12/11/2021 6:50 PM 2 6:50 EDT PM EDT Iker Cuevas MD POINT OF CARE TEST ORDERABLE S Performing Organization Address City/State/[place] [address] (ABNORMAL) POCT Glucose (12/11/2021 4:00 PM EDT) athologist Signature POC Glucose 383 (H) 65 - 199 [place] mg/dL [facility] LABORATORY Comment: Supplemental ranges: <140 mg/dL before meals <180 mg/dL all other times of the day Specimen Anatomical Collection Method Collection Time Receive d Time (Source) Location / / Volume Laterality Blood 12/11/2021 4:00 PM 2 4:00 EDT PM EDT Iker Cuevas MD POINT OF CARE TEST ORDERABLE S Performing Organization Address City/State/[place] [address] (ABNORMAL) POCT Glucose (12/11/2021 12:01 PM EDT) athologist Signature POC Glucose 342 (H) 65 - 199 [place] mg/dL [facility] LABORATORY Comment: Supplemental ranges: <140 mg/dL before meals <180 mg/dL all other times of the day Specimen Anatomical Collection Method Collection Time Receive d Time (Source) Location / / Volume Laterality Blood 12/11/2021 12:01 12/11/2021 PM EDT 12:01 PM EDT Iker Cuevas MD POINT OF CARE TEST ORDERABLE S Performing Organization Address City/State/ZIP Code [place] [address] COVID-19 PCR (12/11/2021 10:13 AM EDT) [facility] Method Time Signature SARS-CoV-2 Not Detected Not Detected [place] RNA [facility] [...] diagnosis of COVID-19 is performed using the [employer] RONNA S-CoV-2 Assay as authorized by the FDA Emergency Use Authorization (EUA). This EUA assay is intended for In-vitro Diagnostic (IVD) use with respiratory sp ecimens such as nasopharyngeal swabs collected from individuals during the [place] phase of infection. This assay is performed based on the instructions for use provided by [employer] and additional guidance provided by CDC and FDA. Testing is performed in the Clinical Genomics and Advanced Technolog y Laboratory within the Department of Pathology and Laboratory Medicine at [facility], certified under the Clinical Laboratory Improvement [...] required or requested by public health a [facility], positive specimens may be sent for additional [...] clinical management guidance information are available at [facility] Coronavirus Disease 2019 (COVID-19) webpage under Information fo r Healthcare Professionals (https://www.cdc.gov/coronavirus/2019-nc ov/hcp/index.html) Additional information about this and ot her EUA tests can be found in provider and patient fact sheets at the following FDA website: https://www.fda.gov/medical-devices/ecvetszevmj-bmpsgmh-4338-odrgn-16-kzdskgfci- hhp-raczqteqqujfpl-ypjraki-devices/gxskp-lemxkwcekrq-dnjm SARS-Cov-2 RNA Source SURGEON CHIEF Swab [facility] Specimen (Source) Anatomical Collection Method Collection Time Re ceived Time Location / / Volume Laterality Nasopharyngeal Swab 12/11/2021 10:13 0503/2022 AM EDT 11:16 AM EDT Comment: Symptoms->Surveillance Resulting Agency Comment Spec In Lab Iker Cuevas MD MICROBIOLOGY - GENERAL ORDER [place] Performing Organization Address City/State/[place] [address] POCT Glucose (12/11/2021 7:34 AM EDT) athologist Signature POC Glucose 198 65 - 199 [facility] mg/dL [facility] Comment: Supplemental ranges: <140 mg/dL before meals <180 mg/dL all other times of the day Specimen Anatomical Collection Method Collection Time Receive d Time (Source) Location / / Volume Laterality Blood 12/11/2021 7:34 AM 2 7:34 EDT AM EDT Iker Cuevas MD POINT OF CARE TEST ORDERABLE S Performing Organization Address City/State/[place] [address] (ABNORMAL) POCT Glucose (12/11/2021 5:07 AM EDT) P athologist Signature POC Glucose 208 (H) 65 - 199 [facility] mg/dL [facility] Comment: Supplemental ranges: <140 mg/dL before meals <180 mg/dL all other times of the day Specimen Anatomical Collection Method Collection Time Receive d Time (Source) Location / / Volume Laterality Blood 12/11/2021 5:07 AM 2 5:07 EDT AM EDT Iker Cuevas MD POINT OF CARE TEST ORDERABLE S Performing Organization Address City/State/[place] [address] (ABNORMAL) Differential, Automated (12/11/2021 4:28 AM EDT) Patholo gist Method Time Signature Neutrophils % 79.6 % [facility] Neutr Abs (ANC) 7.01 (H) 1.70 - [facility] 6.10 [facility] x10(3)/[facility] LABORATORY Lymphocytes % 9.1 % [facility] Lymphocytes Abs 0.8 (L) 0.9 - 3.2 [facility] x10(3)/[facility] LABORATORY Monocytes % 9.2 % [facility] Monocyte Abs 0.8 0.3 - 0.9 [facility] x10(3)/[facility] LABORATORY Eosinophils % 1.3 % [facility] Eosinophils Abs 0.1 0.0 - 0.4 [facility] x10(3)/[facility] LABORATORY Basophils % 0.5 % [facility] Basophils Abs 0.0 0.0 - 0.1 [facility] x10(3)/[facility] LABORATORY Immature [...] 0.04 x10(3)/[facility] LABORATORY Specimen Anatomical Collection Method Collection Time Receive d Time (Source) Location / / Volume Laterality Blood 12/11/2021 4:28 AM 4:37 EDT AM EDT Resulting Agency Comment Spec In Lab Bijan Sun MD HEMATOLOGY ORDERABLES Performing Organization Address City/State/ZIP Code Phon e Number [place] [id number] (ABNORMAL) Hemogram (12/11/2021 4:28 AM EDT) Analysis Performed At Patho logist Time Signature WBC 8.8 4.0 - 9.5 [facility] x10(3)/[facility] LABORATORY RBC 4.15 (L) 4.58 - [facility] 5.54 [facility] x10(6)/[facility] LABORATORY Hemoglobin 11.9 (L) 13.7 - [facility] 16.5 g/dL [facility] Hematocrit 36.9 (L) 40.5 - [facility] 48.5 % [facility] LABORATORY MCV 88.9 82.9 - [facility] 93.1 [facility] LABORATORY MCH 28.7 27.5 - [facility] 32.1 pg [facility] LABORATORY MCHC 32.2 32.0 - [facility] 35.7 g/dL [facility]ORY Platelets 211 145 - 357 [facility] x[facility](3)/[facility] LABORATORY RDWSD 48.3 (H) 36.0 - [facility] 45.0 [facility] LABORATORY RDWCV 14.8 (H) 11.4 - [facility] 13.8 % [facility] LABORATORY MPV 9.6 7.6 - 12.9 [facility] LABORATORY nRBC % Auto 0.0 % [facility] nRBC Abs Auto 0.000 0.000 - [facility] 0.000 [facility] x10(3)/[facility] LABORATORY Specimen Anatomical Collection Method Collection Time Receive d Time (Source) Location / / Volume Laterality Blood 12/11/2021 4:28 AM 2 4:37 EDT AM EDT Resulting Agency Comment Spec In Lab Bijan Sun MD HEMATOLOGY ORDERABLES Performing Organization Address City/[facility] [place] [address] (ABNORMAL) Prothrombin Time (12/11/2021 4:28 AM EDT) P athologist Signature PT 17.7 (H) 9.4 - 12.5 [facility] LABORATORY INR 1.6 [facility] Cuevas MD HEMATOLOGY ORDERABLES Performing Organization Address City/[facility]/ZIP Code Phon e Number [place] [id number] (ABNORMAL) BMP w/fasting Glucose (12/11/2021 4:28 AM EDT) P athologist Signature Glucose 207 (H) 65 - 99 [facility] Fasting mg/dL [facility] Comment: ?Fasting* Glucose Interpretive C riteria [...] of Diabetes Mellitus, Position Statement from the [place] [employer]. ??Diabete s Care, Volume 33, Supplement 1, Jul 2009 BUN 49 (H) 10 - 20 mg/dL [facility] Creatinine 1.43 0.80 - 1.50 mg/dL [facility] Sodium 142 135 - 145 mmol/L [facility] Potassium 4.0 3.5 - 5.0 mmol/L [facility] [...] mg/dL [facility] Estimated GFR 48 (L) >=60 [...] Cuevas MD CHEMISTRY ORDERABLES Performing Organization Address City/[facility]/[place] [address] Magnesium (12/11/2021 4:28 AM EDT) athologist Signature Magnesium 1.04 0.69 - 1.07 [facility] mmol/L [facility] LABORATORY Specimen Anatomical Collection Method Collection Time Receive d Time (Source) Location / / Volume Laterality Blood 12/11/2021 4:28 AM 2 4:37 EDT AM EDT Resulting Agency Comment Spec In Lab Iker Cuevas MD CHEMISTRY ORDERABLES Performing Organization Address City/[facility]/[place] [address] POCT Glucose (12/11/2021 3:58 AM EDT) athologist Signature POC Glucose 189 65 - 199 [facility] mg/dL [facility] LAB[facility]ORY Comment: Supplemental ranges: <140 mg/dL before [...] [facility]/ZIP Code Phon e Number [address] (ABNORMAL) POCT Glucose (12/10/2021 11:45 PM EDT) athologist Signature POC Glucose 205 (H) 65 - 199 [facility] mg/dL [facility] LAB[facility] Comment: Supplemental ranges: <140 mg/dL before [...] [facility]/[place] [address] (ABNORMAL) POCT Glucose (12/10/2021 7:54 PM EDT) athologist Signature POC Glucose 225 (H) 65 - 199 [facility] mg/dL [facility] Comment: Supplemental ranges: <140 mg/dL before meals <180 mg/dL all other times of the day Specimen Anatomical Collection Method Collection Time Receive d Time (Source) Location / / Volume Laterality Blood 12/10/2021 7:54 PM 2 7:54 EDT PM EDT Iker Cuevas MD POINT OF CARE TEST ORDERABLE S Performing Organization Address City/[facility]/ZIP [facility] [place] [address] Potassium (12/10/2021 7:46 PM EDT) athologist Signature Potassium 4.2 3.5 - 5.0 [facility] mmol/L [facility] LAB[facility]ORY Comment: Please note: ??Patients with WBC [...] Cuevas MD CHEMISTRY ORDERABLES Performing Organization Address City/[facility]/ZIP [facility] [place] [address] (ABNORMAL) Basic Metabolic Panel (non-fasting) (12/10/2021 6:12 PM EDT) athologist Signature Glucose Lvl 246 (H) 65 - 199 [facility] mg/dL [facility] LAB[facility] Comment: Diabetes: >=200 mg/dL plus symp toms BUN 50 (H) 10 - 20 mg/dL [facility] Creatinine 1.39 0.80 - 1.50 mg/dL [facility] Sodium 138 135 - 145 mmol/L [facility] Potassium Not Perf 3.5 - 5.0 [facility] Comment: Unable to quantitate due [...] mg/dL [facility] Estimated GFR 49 (L) >=60 [...] Address City/State/ZIP Code Phon e Number [address] POCT Glucose (12/10/2021 4:59 PM EDT) P athologist Signature POC Glucose 158 65 - 199 [facility] mg/dL [facility] LABORATORY Comment: Supplemental ranges: <140 mg/dL before [...] [facility]/[place] [address] (ABNORMAL) POCT Glucose (12/10/2021 12:43 PM EDT) P athologist Signature POC Glucose 241 (H) 65 - 199 [facility] mg/dL [facility] LAB[facility]ORY Comment: Supplemental ranges: <140 mg/dL before meals <180 mg/dL all other times of the day Specimen Anatomical Collection Method Collection Time Receive d Time (Source) Location / / Volume Laterality Blood 12/10/2021 12:43 12/10/2021 PM EDT 12:43 PM EDT Iker Cuevas MD POINT OF CARE TEST ORDERABLE S Performing Organization Address City/State/[place] [address] EKG 12 Lead (12/10/2021 11:17 AM EDT) Component Value Ref Range Test Analysis Performed Pathologis t Method Time At Signature Ventricular rate 62 BPM MUSE SYSTEM Atrial Rate 62 BPM MUSE SYSTEM P-R Interval 142 ms MUSE SYSTEM QRS Duration 100 ms MUSE SYSTEM Q-T Interval 434 ms MUSE SYSTEM QTC Calculated 440 ms MUSE SYSTEM (Bezet) Calculated P [place] 34 degrees MUSE SYSTEM Calculated R [place] -39 degrees MUSE SYSTEM Calculated T [place] 92 degrees MUSE SYSTEM INTERPRETATION Normal sinus [...] Laterality Volume Narrative 12/10/2021 12:04 PM EDT ?[facility] ? Cardiac Cathete rization/Intervention Report ? Patient Name: Don Fatima. ? Procedure Date: 12/10/2021 ? A #: [id number] ? Primary Physician: Nobles, Vitaliy P ? Case #: [id number] ? File Name: [id number] ? Catheterization Order Number: [id number] ? [facility] ? Final Report [place], [place] ? Patient Name: ? Don E. Stewa rt ? ID#: ?[id number] ? : ?1945 ? Procedure Date: ? [...] The indication for ?the cardiac cath lab manager visit is ACS great er than [...] ?3.75 guiding catheter and a 3.5 Fr [facility] [place] 20 Mhz using Manual ?pullback. ??Imaging was [...] ?3.75 guiding catheter and a 3.5 Fr [facility] [place] 20 Mhz using Manual ?pullback. ??Imaging was [...] may require ?modification of this regimen. C [facility] Interventional Cardiology for ?questions. ?The 1 [...] Procedure Note Vitaliy Nobles MD - 01/14/2022 [facility] Cardiac Catheterization/Intervention Re port Patient Name: Don Fatima Procedure Date: 12/10/2021 A #: [id number] Primary Physician: Vitaliy Nobles Case #: [id number] File Name: [id number] Catheterization Order Number: [id number] [facility] Final Report [place], [place] Patient Name: Don Fatima ID#: [...] was designated as ASA Class III. The [facility] c linical frailty scale is 5: [...] The indication for the cardiac cath lab manager visit is ACS greater than 24 [...] and a 3.5 Fr [facility] [place] 20 Mhz using Manual pullback. Imaging was [...] and a 3.5 Fr [facility] [place] 20 Mhz using Manual pullback. Imaging was [...] require modification of this regimen. Consult [facility] Interventional Cardiology for questions. The [...] POC Glucose 262 (H) 65 - 199 [facility] mg/dL [facility] LAB[facility]ORY Comment: Supplemental ranges: <140 mg/dL before meals <180 mg/dL all other times of the day Specimen Anatomical Collection Method Collection Time Receive d Time (Source) Location / / Volume Laterality Blood 12/10/2021 10:30 12/10/2021 AM EDT 10:30 AM EDT Iker Cuevas MD POINT OF CARE TEST ORDERABLE S Performing Organization Address City/State/[place] [address] (ABNORMAL) POCT Glucose (12/10/2021 9:48 AM EDT) P athologist Signature POC Glucose 279 (H) 65 - 199 [facility] mg/dL [facility] LAB[facility]ORY Comment: Supplemental ranges: <140 mg/dL before [...] [facility]/[place] [address] (ABNORMAL) POCT Glucose (12/10/2021 9:07 AM EDT) P athologist Signature POC Glucose 268 (H) 65 - 199 [facility] mg/dL [facility] LAB[facility]ORY Comment: Supplemental ranges: <140 mg/dL before meals <180 mg/dL all other times of the day Specimen Anatomical Collection Method Collection Time Receive d Time (Source) Location / / Volume Laterality Blood 12/10/2021 9:07 AM 2 9:07 EDT AM EDT Iker Cuevas MD POINT OF CARE TEST ORDERABLE S Performing Organization Address City/State/[place] [address] (ABNORMAL) Point of Care Blood Gas Historical (12/10/2021 9:04 AM EDT) Patholo gist Method Time Signature POC pH 7.40 7.35 - [facility] 7.45 [facility] LABORATORY POC PCO2 40 35 - 45 [facility] LABORATORY POC PO2 63 (L) 85 - 104 [facility] LABORATORY POC Base Excess 0.0 -3.0 - 3.0 [facility] K mmol/L [facility] LABORATORY POC HCO3 24.8 20.0 - [facility] 26.0 [facility] POC Sodium 143 135 - 145 [facility] mmol/L [facility] LABORATORY POC Potassium 3.7 3.5 - 5.0 [facility] mmol/L [facility] LABORATORY POC Ionized Ca 1.07 (L) 1.15 - [facility] 1.33 [facility] POC Hematocrit 30.0 (L) 40.0 - [facility] 51.0 % [facility] LABORATORY POC Calc Hgb 10.2 (L) 13.7 - [facility] 17.5 g/dL [facility] LABORATORY Comment: The calculation of hemoglobin f rom hematocrit assumes a normal MCHC. POC Bgas Loc CC LAB [facility] LABORATORY Specimen Anatomical Collection Method Collection Time Receive d Time (Source) Location / / Volume Laterality Blood 12/10/2021 9:04 AM 2 EDT 12:00 PM EDT Ifeanyi Truong MD CHEMISTRY ORDERABLES Performing Organization Address City/State/[place] [address] (ABNORMAL) POCT Glucose (12/10/2021 7:19 AM EDT) P athologist Signature POC Glucose 274 (H) 65 - 199 [facility] mg/dL [facility] LABORATORY Comment: Supplemental ranges: <140 mg/dL before meals <180 mg/dL all other times of the day Specimen Anatomical Collection Method Collection Time Receive d Time (Source) Location / / Volume Laterality Blood 12/10/2021 7:19 AM 2 7:19 EDT AM EDT Iker Cuevas MD POINT OF CARE TEST ORDERABLE S Performing Organization Address City/State/[place] [address] Heparin (unfractionated) Level (12/10/2021 4:25 AM EDT) P athologist Signature Heparin UFH 0.69 IU/mL [facility] LABORATORY Comment: Heparin (anti-Xa) levels should be [...] City/State/ZIP Code Phon e Number [place] [id number] Drive (ABNORMAL) Differential, Automated (12/10/2021 4:25 AM EDT) Patholo gist Method Time Signature Neutrophils % 79.8 % [facility] Neutr Abs (ANC) 7.47 (H) 1.70 - [facility] 6.10 [facility] x10(3)/[facility] LABORATORY Lymphocytes % 10.6 % [facility] Lymphocytes Abs 1.0 0.9 - 3.2 [facility] x10(3)/[facility] LABORATORY Monocytes % 8.4 % [facility] Monocyte Abs 0.8 0.3 - 0.9 [facility] x10(3)/[facility] LABORATORY Eosinophils % 0.6 % [facility] Eosinophils Abs 0.1 0.0 - 0.4 [facility] x10(3)/[facility] LABORATORY Basophils % 0.2 % [facility] Basophils Abs 0.0 0.0 - 0.1 [facility] x10(3)/[facility] LABORATORY Immature [...] 0.04 x10(3)/[facility] LABORATORY Specimen Anatomical Collection Method Collection Time Receive d Time (Source) Location / / Volume Laterality Blood 12/10/2021 4:25 AM 4:34 EDT AM EDT Resulting Agency Comment Spec In Lab Morgan BROWN HEMATOLOGY ORDERABLES Performing Organization Address City/State/ZIP [place] [address] (ABNORMAL) Hemogram (12/10/2021 4:25 AM EDT) Analysis Performed At Patho logist Time Signature WBC 9.4 4.0 - 9.5 [facility] x10(3)/[facility] LABORATORY RBC 3.81 (L) 4.58 - [facility] 5.54 [facility] x10(6)/[facility] LABORATORY Hemoglobin 11.1 (L) 13.7 - [facility] 16.5 g/dL [facility] LABORATORY Hematocrit 34.0 (L) 40.5 - [facility] 48.5 % [facility] LABORATORY MCV 89.2 82.9 - [facility] 93.1 [facility] LABORATORY MCH 29.1 27.5 - [facility] 32.1 pg [facility] LABORATORY MCHC 32.6 32.0 - [facility] 35.7 g/dL [facility] LABORATORY Platelets 183 145 - 357 [facility] x10(3)/[facility] LABORATORY RDWSD 49.9 (H) 36.0 - [facility] 45.0 [facility] LABORATORY RDWCV 15.2 (H) 11.4 - [facility] 13.8 % [facility] LABORATORY MPV 9.8 7.6 - 12.9 [facility] LABORATORY nRBC % Auto 0.0 % [facility] LABORATORY nRBC Abs Auto 0.000 0.000 - [facility] 0.000 [facility] x10(3)/[facility] LABORATORY Specimen Anatomical Collection Method Collection Time Receive d Time (Source) Location / / Volume Laterality Blood 12/10/2021 4:25 AM 2 4:34 EDT AM EDT Resulting Agency Comment Spec In Lab Morgan BROWN HEMATOLOGY ORDERABLES Performing Organization Address City/[facility]/ZIP [facility] Phon e Number [address] (ABNORMAL) Prothrombin Time (12/10/2021 4:25 AM EDT) P athologist Signature PT 20.0 (H) 9.4 - 12.5 [facility] LABORATORY INR 1.7 [facility] Cuevas MD HEMATOLOGY ORDERABLES Performing Organization Address City/[facility]/ZIP [place] [address] (ABNORMAL) BMP w/fasting Glucose (12/10/2021 4:25 AM EDT) P athologist Signature Glucose 210 (H) 65 - 99 [facility] Fasting mg/dL [facility] LABORATORY Comment: ?Fasting* Glucose Interpretive C riteria [...] of Diabetes Mellitus, Position Statement from the [place]. ??Diabete s Care, Volume 33, Supplement 1, Jul 2009 BUN 54 (H) 10 - 20 mg/dL [facility] LABORATORY Creatinine 1.52 (H) 0.80 - 1.50 mg/dL [facility] LABORATORY Sodium 140 135 - 145 mmol/L [facility] Potassium 3.9 3.5 - 5.0 mmol/L [facility] [...] Calcium 8.0 (L) 8.5 - 10.5 mg/dL [facility] [...] Cuevas MD CHEMISTRY ORDERABLES Performing Organization Address City/[facility]/ZIP Code Phon e Number [address] Magnesium (12/10/2021 4:25 AM EDT) athologist Signature Magnesium 0.95 0.69 - 1.07 [facility] mmol/L [facility] LABORATORY Specimen Anatomical Collection Method Collection Time Receive d Time (Source) Location / / Volume Laterality Blood 12/10/2021 4:25 AM 2 4:34 EDT AM EDT Resulting Agency Comment Spec In Lab Iker Cuevas MD CHEMISTRY ORDERABLES Performing Organization Address City/[facility]/[place] [address] POCT Glucose (12/10/2021 1:58 AM EDT) athologist Signature POC Glucose 164 65 - 199 [facility] mg/dL [facility] LABORATORY Comment: Supplemental ranges: <140 mg/dL before [...] [facility]/ZIP Code Phon e Number [address] (ABNORMAL) POCT Glucose (12/09/2021 9:02 PM EDT) athologist Signature POC Glucose 313 (H) 65 - 199 [facility] mg/dL [facility] LABORATORY Comment: Supplemental ranges: <140 mg/dL before [...] [facility]/[place] [address] Heparin (unfractionated) Level (12/09/2021 7:30 PM EDT) athologist Signature Heparin UFH 0.48 IU/mL [facility] LABORATORY Comment: Heparin (anti-Xa) levels should be [...] Organization Address City/State/ZIP [place] [address] (ABNORMAL) Basic Metabolic Panel (non-fasting) (12/09/2021 7:30 PM EDT) athologist Signature Glucose Lvl 372 (H) 65 - 199 [facility]dL [facility] Comment: Diabetes: >=200 mg/dL plus symp toms BUN 56 (H) 10 - 20 mg/dL [facility] Creatinine 1.75 (H) 0.80 - 1.50 mg/dL [facility] Sodium 138 135 - 145 mmol/L [facility] Potassium 4.2 3.5 - 5.0 mmol/L [facility] [...] mg/dL [facility] Estimated GFR 37 (L) >=60 [...] Organization Address City/State/[place] [address] (ABNORMAL) POCT Glucose (12/09/2021 6:34 PM EDT) athologist Signature POC Glucose 408 (H) 65 - 199 [facility] mg/dL [facility] Comment: Supplemental ranges: <140 mg/dL before meals <180 mg/dL all other times of the day Specimen Anatomical Collection Method Collection Time Receive d Time (Source) Location / / Volume Laterality Blood 12/09/2021 6:34 PM 2 6:34 EDT PM EDT Iker Cuevas MD POINT OF CARE TEST ORDERABLE S Performing Organization Address City/State/[place] [address] (ABNORMAL) POCT Glucose (12/09/2021 6:32 PM EDT) athologist Signature POC Glucose 356 (H) 65 - 199 [facility] mg/dL [facility] Comment: Supplemental ranges: <140 mg/dL before meals <180 mg/dL all other times of the day Specimen Anatomical Collection Method Collection Time Receive d Time (Source) Location / / Volume Laterality Blood 12/09/2021 6:32 PM 2 6:32 EDT PM EDT Iker Cuevas MD POINT OF CARE TEST ORDERABLE S Performing Organization Address City/State/[place] [address] (ABNORMAL) POCT Glucose (12/09/2021 4:19 PM EDT) athologist Signature POC Glucose 347 (H) 65 - [address] [facility] mg/dL [facility] Comment: Supplemental ranges: <140 mg/dL before meals <180 mg/dL all other times of the day Specimen Anatomical Collection Method Collection Time Receive d Time (Source) Location / / Volume Laterality Blood 12/09/2021 4:19 PM 2 4:19 EDT PM EDT Iker Cuevas MD POINT OF CARE TEST ORDERABLE S Performing Organization Address City/State/[place] [address] Heparin (unfractionated) Level (12/09/2021 1:29 PM EDT) athologist Signature Heparin UFH 0.42 IU/mL [facility] LABORATORY Comment: Heparin (anti-Xa) levels should be [...] Organization Address City/State/[place] [address] (ABNORMAL) POCT Glucose (12/09/2021 12:02 PM EDT) athologist Signature POC Glucose 235 (H) 65 - 199 [facility] mg/dL [facility] Comment: Supplemental ranges: <140 mg/dL before meals <180 mg/dL all other times of the day Specimen Anatomical Collection Method Collection Time Receive d Time (Source) Location / / Volume Laterality Blood 12/09/2021 12:02 12/09/2021 PM EDT 12:02 PM EDT Iker Cuevas MD POINT OF CARE TEST ORDERABLE S Performing Organization Address City/State/[place] [address] (ABNORMAL) POCT Glucose (12/09/2021 9:44 AM EDT) athologist Signature POC Glucose 214 (H) 65 - 199 [facility] mg/dL [facility] Comment: Supplemental ranges: <140 mg/dL before meals <180 mg/dL all other times of the day Specimen Anatomical Collection Method Collection Time Receive d Time (Source) Location / / Volume Laterality Blood 12/09/2021 9:44 AM 2 9:44 EDT AM EDT Iker Cuevas MD POINT OF CARE TEST ORDERABLE S Performing Organization Address [facility]/ZIP [place] [address] EKG 12 Lead (12/09/2021 7:57 AM EDT) Component Value Ref Range Test Analysis Performed Pathologis t Method Time At Signature Ventricular rate 101 BPM MUSE SYSTEM Atrial Rate 101 BPM MUSE SYSTEM P-R Interval 150 ms MUSE SYSTEM QRS Duration 112 ms MUSE SYSTEM Q-T Interval 364 ms MUSE SYSTEM QTC Calculated 471 ms MUSE SYSTEM (Bezet) Calculated P [place] 59 degrees MUSE SYSTEM Calculated R [place] -42 degrees MUSE SYSTEM Calculated T [place] 102 degrees MUSE SYSTEM INTERPRETATION Sinus tachycardia Occasional Premature ventricular com plexes MUSE SYSTEM Left axis deviation 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) Abnormal ECG When compared with ECG of 08-DEC-2021 16:40, Premature ventricular complexes are now Present Confirmed by MD Fernandez Danette ([id number]) on 12/10/2021 4:55:06 PM Specimen Anatomical Collection Method Collection Time Receive d Time (Source) Location / / Volume Laterality 12/09/2021 7:57 AM 2 4:55 EDT PM EDT Iker Cuevas MD ECG ORDERABLES Performing Organization Address City/[facility]/ZIP Code Phon e Number MUSE SYSTEM (ABNORMAL) POCT Glucose (12/09/2021 7:28 AM EDT) P athologist Signature POC Glucose 263 (H) 65 - 199 [facility] mg/dL [facility] Comment: Supplemental ranges: <140 mg/dL before meals <180 mg/dL all other times of the day Specimen Anatomical Collection Method Collection Time Receive d Time (Source) Location / / Volume Laterality Blood 12/09/2021 7:28 AM 2 7:28 EDT AM EDT Iker Cuevas MD POINT OF CARE TEST ORDERABLE S Performing Organization Address City/State/ZIP Code Phon e Number [place] [id number]OS[address] LAB[address]ORY [address] (ABNORMAL) Hemoglobin A1c (12/09/2021 [...] Mellitus, Diabetes Care 2013; 36: Suppl. 1, S67-58 Est Avg Gluc See note mg/dL [facility] Comment: Estimated Average Glucose not [...] into estimated average glucose values. ??Diabetes Care 2008:31(8):3972-5099. Specimen Anatomical Collection Method Collection Time Receive d Time (Source) Location / / Volume Laterality Blood Venous Draw / 12/09/2021 6:18 AM 12/10/19 22 Unknown EDT 12:24 PM EDT Resulting Agency Comment Spec In Lab Migdalia BROWN CHEMISTRY ORDERABLES Performing Organization Address City/[facility] [place] [address] (ABNORMAL) Prothrombin Time (12/09/2021 6:18 AM EDT) athologist Signature PT 26.6 (H) 9.4 - 12.5 [facility] LABORATORY INR 2.3 [facility] Migdalia BROWN HEMATOLOGY ORDERABLES Performing Organization Address City/[facility] Phon e Number [place] [phone]OSP[address] LAB[address] Heparin (unfractionated) Level (12/09/2021 6:18 AM EDT) P athologist Signature Heparin UFH 0.24 IU/mL [facility] LABORATORY Comment: Heparin (anti-Xa) levels should be [...] Organization Address City/State/ZIP [place] [address] (ABNORMAL) Differential, Automated (12/09/2021 6:18 AM EDT) [facility] Method Time Signature Neutrophils % 91.5 % [facility]ORY Neutr Abs (ANC) 15.78 (H) 1.70 - [facility] 6.10 [facility] x10(3)/[facility] L LABORATORY Lymphocytes % 2.9 % [facility]OR[facility]ORY Lymphocytes Abs 0.5 (L) 0.9 - 3.2 [facility] x10(3)/[facility] LABORATORY Monocytes % 4.9 % [facility]ORATORY Monocyte Abs 0.8 0.3 - 0.9 [facility] x10(3)/[facility] LABORATORY Eosinophils % 0.0 % [facility]ORATORY Eosinophils Abs 0.0 0.0 - 0.4 [facility] x10(3)/[facility] LABORATORY Basophils % 0.2 % [facility] Basophils Abs 0.0 0.0 - 0.1 [facility] x10(3)/[facility] LABORATORY Immature Gran % 0.50 % [...] Organization Address City/State/ZIP [place] [address] (ABNORMAL) Hemogram (12/09/2021 6:18 AM EDT) Analysis Performed At Patho logist Time Signature WBC 17.2 (H) 4.0 - 9.5 [facility] x10(3)/[facility] LABORATORY RBC 4.32 (L) 4.58 - [facility] 5.54 [facility] x10(6)/[facility] LABORATORY Hemoglobin 12.6 (L) 13.7 - [facility] 16.5 g/dL [facility] Hematocrit 38.9 (L) 40.5 - [facility] 48.5 % [facility] MCV 90.0 82.9 - [facility] 93.1 [facility] LABORATORY MCH 29.2 27.5 - [facility] 32.1 pg [facility]ORY MCHC 32.4 32.0 - [facility] 35.7 g/dL [facility] Platelets 193 145 - 357 [facility] x10(3)/[facility] LABORATORY RDWSD 50.4 (H) 36.0 - [facility] 45.0 [facility] LABORATORY RDWCV 15.2 (H) 11.4 - [facility] 13.8 % [facility] LABORATORY MPV 9.5 7.6 - 12.9 [facility] LABORATORY nRBC % Auto 0.0 % [facility] nRBC Abs Auto 0.000 0.000 - [facility] 0.000 [facility] x10(3)/[facility] LABORATORY Specimen Anatomical Collection Method Collection Time Receive d Time (Source) Location / / Volume Laterality Blood 12/09/2021 6:18 AM 2 6:33 EDT AM EDT Resulting Agency Comment Spec In Lab Morgan BROWN HEMATOLOGY ORDERABLES Performing Organization Address City/State/ZIP [place] [address] Lipid Panel (Reflex Direct LDL) (12/09/2021 6:18 AM EDT) athologist Signature Chol, Total 105 mg/dL [facility] Comment: Lower Risk: <200 mg/dL Average Risk: 200-239 mg/dL Higher Risk: >kk=859 mg/dL Triglycerides 133 mg/dL [facility] Comment: Average Risk/Lower Risk: <150 mg/dL Borderline High Risk: 150-199 mg/dL High Risk: 200-499 mg/dL Very High Risk: >jn=572 mg/dL HDL 42 mg/dL [facility] Comment: Males: ?? Higher Risk: <40 mg/dL Females: ?? Higher Risk: <50 mg/dL LDL Cholesterol 36 mg/dL [facility] Comment: Lowest Risk: <100 mg/dL Lower Risk: 100-129 mg/dL Borderline High Risk: 130-159 mg/dL High Risk: 160-189 mg/dL Very High Risk: >ap=860 mg/dL Chol/HDL Ratio 2.5 ratio [facility] Lipid Interpretation See Note [facility] LAB[facility] Comment: Lipid management should be guided by a p atient? s ASCVD risk, goals and preferences. ACC/AHA Guidelines recommend high intens ity statin if clinical ASCVD or LDL greater than or equal to 190 mg/dL. http://tinyurl.com/OJI-NGV-Rigrdtmpf Adults aged 40-75 with LDL 70-189 mg/dL should have their 10 year ASCVD risk estimated with the ACC/AHA ASCVD risk es timator http://tools.acc.org/JTIHA-Zxyr-Oxfjqbfu r/ Statin should be discussed if risk [...] Cuevas MD CHEMISTRY ORDERABLES Performing Organization Address [facility]/ZIP [facility] Phon e Number [address] TSH (12/09/2021 6:18 AM EDT) P athologist Signature TSH 1.60 0.27 - 4.20 [facility] mcIU/mL [facility] Comment: Reference Interval (mcIU/mL): Females: ??First Trimester: 0.23-3.88 ??Second Trimester: 0.22-3.90 ??Third Trimester: 0.44-4.66 Specimen Anatomical Collection Method Collection Time Receive d Time (Source) Location / / Volume Laterality Blood 12/09/2021 6:18 AM 2 6:33 EDT AM EDT Resulting Agency Comment Spec In Lab Iker Cuevas MD CHEMISTRY ORDERABLES Performing Organization Address City/[facility]/ZIP [facility] [place] [address] Hepatic Function Panel (12/09/2021 6:18 AM EDT) P athologist Signature Total Protein 7.3 6.1 - 8.0 [facility] g/dL [facility] Albumin 4.2 3.2 - 5.2 [facility] g/dL [facility] AST 25 0 - 39 [facility] unit/L [facility] ALT 15 0 - 55 [facility] unit/L [facility] Alk Phos 75 40 - 130 [facility] unit/L [facility] Total 1.1 0.2 - 1.3 [facility] Bilirubin mg/dL [facility] Bili, Direct 0.2 0.0 - 0.3 [facility] mg/dL [facility] Specimen Anatomical Collection Method Collection Time Receive d Time (Source) Location / / Volume Laterality Blood 12/09/2021 6:18 AM 2 6:33 EDT AM EDT Resulting Agency Comment Spec In Lab Iker Cuevas MD CHEMISTRY ORDERABLES Performing Organization Address City/State/ZIP [place] [address] (ABNORMAL) BMP w/fasting Glucose (12/09/2021 6:18 AM EDT) athologist Signature Glucose 235 (H) 65 - 99 [facility] Fasting mg/dL [facility] Comment: ?Fasting* Glucose Interpretive C riteria [...] of Diabetes Mellitus, Position Statement from the [place] [employer]. ??Diabete s Care, Volume 33, Supplement 1, Jul 2009 BUN 49 (H) 10 - 20 mg/dL [facility] Creatinine 1.33 0.80 - 1.50 mg/dL [facility] Sodium 139 135 - 145 mmol/L [facility] Potassium 4.2 3.5 - 5.0 mmol/L [facility] [...] Cuevas MD CHEMISTRY ORDERABLES Performing Organization Address City/[facility]/ZIP Code Phon e Number [address] Magnesium (12/09/2021 6:18 AM EDT) P athologist Signature Magnesium 0.81 0.69 - 1.07 [facility] mmol/L [facility]ORY Specimen Anatomical Collection Method Collection Time Receive d Time (Source) Location / / Volume Laterality Blood 12/09/2021 6:18 AM 2 6:33 EDT AM EDT Resulting Agency Comment Spec In Lab Iker Cuevas MD CHEMISTRY ORDERABLES Performing Organization Address City/[facility]/[place] [address] (ABNORMAL) Troponin (12/09/2021 6:18 AM EDT) athologist Signature Troponin-T 1.13 (H) 0.00 - [facility] 0.00 ng/mL [facility] Comment: The 99th percentile for Troponin [...] additional sample may be indicated. Reference: Third [place] Definition of Myocardial Infarction. Journal of the [place] [employer] 2012;60:1581-98 Specimen Anatomical Collection Method Collection Time Receive d Time (Source) Location / / Volume Laterality Blood 12/09/2021 6:18 AM 2 6:33 EDT AM EDT Resulting Agency Comment Spec In Lab Iker Cuevas MD CHEMISTRY ORDERABLES Performing Organization Address City/State/ZIP Code Phon e Number [facility] [place] [phone] [facility] LABORATORY Drive XR Chest One View [...] who have questions please contact the health personal care aid that requested your imaging first. ? Electronically signed by: Yoselin White, [facility] ([phone]), at 12/09/2021 5:35 AM Narrative 12/09/2021 5:35 [...] ho have questions please contact the health personal care aid that requested your imaging first. Amber Sanches MD IMG DX ORDERABLES (ABNORMAL) BLOOD GAS 2 ARTERIAL (12/09/2021 5:14 AM EDT) Analysis Performed At Patho logist Time Signature pH Art 7.43 7.35 - [facility] 7.45 [facility]ORY pCO2 Art 36 35 - 45 [facility] mmHg [facility] LAB[facility]ORY pO2 Art 67 (L) 85 - 104 [facility] LABORATORY HCO3 Art 23.4 20.0 - [facility] 26.0 [facility] mmol/L [facility] LABORATORY BE Art -0.9 -3.0 - 3.0 [facility] mmol/L [facility]ORY Hgb Blood Gas 13.2 (L) 13.7 - [facility] 16.5 g/dL [facility] O2HB Art 91.3 (L) 94.0 - [facility] 97.0 % [facility] LABOR[facility]ORY COHB Art 0.4 % [facility]ORY Comment: Nonsmokers: 0.5-1.5% COHB Smokers: Variable, but usually less than 10% Toxic: 20-30% COHB Lethal: Greater than 60% COHB METHB Art 0.4 <=1.5 % [facility] Na [...] [facility] FIO2 Art 35 % [facility] Flow Art 8.0 LPM [facility] PF Ratio Art 191 [facility] LABORATORY Specimen Anatomical Collection Method Collection Time Receive d Time (Source) Location / / Volume Laterality Blood 12/09/2021 5:14 AM 2 5:14 EDT AM EDT Iker Cuevas MD CHEMISTRY ORDERABLES Performing Organization Address City/[facility] [place] [address] POCT Glucose (12/09/2021 4:46 AM EDT) P athologist Signature POC Glucose 198 65 - 199 [facility] mg/dL [facility]ORY Comment: Supplemental ranges: <140 mg/dL before [...] [facility]/[place] [address] (ABNORMAL) POCT Glucose (12/09/2021 3:01 AM EDT) P athologist Signature POC Glucose 225 (H) 65 - 199 [facility] mg/dL [facility]ORY Comment: Supplemental ranges: <140 mg/dL before meals <180 mg/dL all other times of the day Specimen Anatomical Collection Method Collection Time Receive d Time (Source) Location / / Volume Laterality Blood 12/09/2021 3:01 AM 2 3:01 EDT AM EDT Iker Cuevas MD POINT OF CARE TEST ORDERABLE S Performing Organization Address City/State/[place] [address] (ABNORMAL) POCT Glucose (12/08/2021 10:55 PM EDT) athologist Signature POC Glucose 327 (H) 65 - 199 [facility] mg/dL [facility] LAB[facility]ORY Comment: Supplemental ranges: <140 mg/dL before meals <180 mg/dL all other times of the day Specimen Anatomical Collection Method Collection Time Receive d Time (Source) Location / / Volume Laterality Blood 12/08/2021 10:55 12/08/2021 PM EDT 10:55 PM EDT Iker Cuevas MD POINT OF CARE TEST ORDERABLE S Performing Organization Address City/State/ZIP Code Phon e Number [address] Heparin (unfractionated) Level (12/08/2021 10:03 PM EDT) athologist [facility] Heparin UFH 0.18 IU/mL [facility] LABORATORY Comment: Heparin (anti-Xa) levels should be [...] Organization Address City/State/[place] [address] (ABNORMAL) Troponin (12/08/2021 10:03 PM EDT) athologist Signature Troponin-T 0.92 (H) 0.00 - [facility] 0.00 ng/mL [facility]ORY Comment: The 99th percentile for Troponin [...] additional sample may be indicated. Reference: Third [place] Definition of Myocardial Infarction. Journal of the [place] [employer] 2012;60:1581-98 Specimen Anatomical Collection Method Collection Time Receive d Time (Source) Location / / Volume Laterality Blood 12/08/2021 10:03 12/08/2021 PM EDT 10:31 PM EDT Resulting Agency Comment Spec In Lab Iker Cuevas MD CHEMISTRY ORDERABLES Performing Organization Address City/State/ZIP [place] [address] (ABNORMAL) POCT Glucose (12/08/2021 8:22 PM EDT) athologist Signature POC Glucose 429 (H) 65 - 199 [facility] mg/dL [facility] LABORATORY Comment: Supplemental ranges: <140 mg/dL before meals <180 mg/dL all other times of the day Specimen Anatomical Collection Method Collection Time Receive d Time (Source) Location / / Volume Laterality Blood 12/08/2021 8:22 PM 2 8:22 EDT PM EDT Iker Cuevas MD POINT OF CARE TEST ORDERABLE S Performing Organization Address City/State/ZIP Code Phon e Number [address] (ABNORMAL) POCT Glucose (12/08/2021 7:06 PM EDT) athologist Signature POC Glucose 442 (H) 65 - 199 [facility] mg/dL [facility] LAB[facility]ORY Comment: Supplemental ranges: <140 mg/dL before [...] [facility]/[place] [address] Magnesium (12/08/2021 6:02 PM EDT) athologist Signature Magnesium 0.86 0.69 - 1.07 [facility] mmol/L [facility] LABORATORY Specimen Anatomical Collection Method Collection Time Receive d Time (Source) Location / / Volume Laterality Blood 12/08/2021 6:02 PM 2 6:36 EDT PM EDT Resulting Agency Comment Spec In Lab Iker Cuevas MD CHEMISTRY ORDERABLES Performing Organization Address City/State/[place] [address] (ABNORMAL) Basic Metabolic Panel (non-fasting) (12/08/2021 6:02 PM EDT) athologist Signature Glucose Lvl 392 (H) 65 - 199 [facility] mg/dL [facility] [...] Organization Address City/State/ZIP [place] [address] (ABNORMAL) Differential, Automated (12/08/2021 6:02 PM EDT) [facility] gist Method Time Signature Neutrophils % 89.5 % [facility] LABORATORY Neutr Abs (ANC) 13.97 (H) 1.70 - [facility] 6.10 [facility] x10(3)/[facility] L LABORATORY Lymphocytes % 3.7 % [facility] LABORATORY Lymphocytes Abs 0.6 (L) 0.9 - 3.2 [facility] x10(3)/[facility] LABORATORY Monocytes % 6.1 % [facility] LABORATORY Monocyte Abs 1.0 (H) 0.3 - 0.9 [facility] x10(3)/[facility] LABORATORY Eosinophils % 0.0 % [facility] LABORATORY Eosinophils Abs 0.0 0.0 - 0.4 [facility] x10(3)/[facility] LABORATORY Basophils % 0.2 % [facility] LABORATORY Basophils Abs 0.0 0.0 - 0.1 [facility] x10(3)/[facility] LABORATORY Immature Gran % 0.50 % [...] Organization Address City/State/Z[place] [address] (ABNORMAL) Hemogram (12/08/2021 6:02 PM EDT) Analysis Performed At Patho logist Time Signature WBC 15.6 (H) 4.0 - 9.5 [facility] x10(3)/[facility] LABORATORY RBC 4.05 (L) 4.58 - [facility] 5.54 [facility] x10(6)/[facility] LABORATORY Hemoglobin 11.8 (L) 13.7 - [facility] 16.5 g/dL [facility] LABORATORY Hematocrit 35.8 (L) 40.5 - [facility] 48.5 % [facility] LABORATORY MCV 88.4 82.9 - [facility] 93.1 [facility] LABORATORY MCH 29.1 27.5 - BARBARA ZHAORYAN 32.1 pg [facility] LABORATORY MCHC 33.0 32.0 - [facility] 35.7 g/dL [facility] LABORATORY Platelets 178 145 - 357 [facility] x10(3)/[facility] LABORATORY RDWSD 49.3 (H) 36.0 - [facility] 45.0 [facility] LABORATORY RDWCV 15.1 (H) 11.4 - [facility] 13.8 % [facility] LABORATORY MPV 10.4 7.6 - 12.9 [facility] LABORATORY nRBC % Auto 0.0 % [facility] LABORATORY nRBC Abs Auto 0.000 0.000 - [facility] 0.000 [facility] x10(3)/[facility] LABORATORY Specimen Anatomical Collection Method Collection Time Receive d Time (Source) Location / / Volume Laterality Blood 12/08/2021 6:02 PM 6:36 EDT PM EDT Resulting Agency Comment Spec In Lab Morgan BROWN HEMATOLOGY ORDERABLES Performing Organization Address City/State/[place] [address] (ABNORMAL) Troponin (12/08/2021 6:02 PM EDT) athologist Signature Troponin-T 0.89 (H) 0.00 - BARBARA RYAN 0.00 ng/mL [facility] LABORATORY Comment: The 99th percentile for Troponin [...] additional sample may be indicated. Reference: Third [place] Definition of Myocardial Infarction. Journal of the [place] College [employer]iology 2012;60:1581-98 Specimen Anatomical Collection Method Collection Time Receive d Time (Source) Location / / Volume Laterality Blood 12/08/2021 6:02 PM 6:36 EDT PM EDT Resulting Agency Comment Spec In Lab Iker Cuevas MD CHEMISTRY ORDERABLES Performing Organization Address City/State/ZIP Code Phon e Number [place] [phone]OS[address] COVID-19 PCR (12/08/2021 5:00 PM EDT) [facility] Method Time Signature SARS-CoV-[address] [facility] RNA PCR [facility] [...] using the Simplexa COVID-19 Direct Assay by [employer] as authorized by the FDA issued Emergency [...] Department of Pathology and Laboratory Medicine at [facility], certified under the Clinical Laboratory Improvement Amendmen [...] fact sheets at the following FDA website: https://www.fda.gov/medical-devices/yazkdafbilu-pjwofpg-8761-utqqc-10-rfirdfetl- oyc-casrhuojccersb-gjfrdkj-devices/rcqle-jyzsqxfklho-vkcc SARS-CoV-2 Source SURGEON CHIEF Swab [facility] LABORATORY Specimen (Source) Anatomical Collection Method Collection Time Re ceived Time Location / / Volume Laterality Nasopharyngeal Swab 12/08/2021 5:00 12/08 PM EDT 6:03 PM EDT Comment: Symptoms->Surveillance Resulting Agency Comment Spec In Lab Iker Cuevas MD MICROBIOLOGY - GENERAL ORDER ROBSON Performing Organization Address City/State/[place] [address] EKG 12 Lead (12/08/2021 4:40 PM EDT) Component Value Ref Range Test Analysis Performed Pathologis t Method Time At Signature Ventricular rate 78 BPM MUSE SYSTEM Atrial Rate 78 BPM MUSE SYSTEM P-R Interval 152 ms MUSE SYSTEM QRS Duration 96 ms MUSE SYSTEM Q-T Interval 396 ms MUSE SYSTEM QTC Calculated 451 ms MUSE SYSTEM (Bezet) Calculated P [place] 44 degrees MUSE SYSTEM Calculated R [place] -31 degrees MUSE SYSTEM Calculated T [place] 124 degrees MUSE SYSTEM INTERPRETATION Normal sinus [...] POC Glucose 400 (H) 65 - 199 [facility] mg/dL [facility] LABORATORY Comment: Supplemental ranges: <140 mg/dL before meals <180 mg/dL all other times of the day Specimen Anatomical Collection Method Collection Time Receive d Time (Source) Location / / Volume Laterality Blood 12/08/2021 4:34 PM 2 4:34 EDT PM EDT Iker Cuevas MD POINT OF CARE TEST ORDERABLE S Performing Organization Address City/State/[place] [address] documented in this encounter [...] Given 11/23 10:30 AM EDT 300 mcg (MAIL CARRIERS SUPERVISOR) ONCE PRN, Starting on Wed12/10/21 at 1030, [...] (Intra-Procedure), Routine niCARdipine (Cardene) (100 mcg/mL) dilution (MAIL CARRIERS SUPERVISOR) (CANCELED) 1030 (Given - Provider: Vitaliy Nobles [...] episode. & nbsp; For persistent hypoglycemia, con data base design analyst longer-acting treatment for the duration of the [...]
Routine documented in this encounter Care Teams Ent Physician Relationship Specialty Start Date End Date Lovely Vicente MD PCP - General 04/16/[address] [place] [address] documented as of this encounter
--- OUTSIDE RECORDS SUMMARY | 2022-04-01 10:03 | XMS_ITS | Encounter Summary ---
:1945 Author Organization [facility] [place] [address] Care Team Providers Name Role Phone Lovely Vicente MD Primary Care Provider Encounter Details Date Type Department Care Team Description 09/03/2017 Telephone Vascular Surgery at [facility] Ninfa Clark, [place] [address] Social History Tobacco Use Types Packs/Day [...] help with the discomfort of the change. Thread Cutter told the VNA that I would ask [...] Zulma Dolan MD [facility] [place], [place] [address] (Wo rk) 05/28/2022 Laboratory Appointment Lab 05/28/2022 Office Visit Cardiology Zulma Dolan [place] [facility] [address] Liz Poole PA [facility] [place] [address] 06/10/2022 Office Visit Dermatology Laura Scherer MD [facility] [address] [place], [place] [address] (Wo rk) documented as of this encounter Visit Diagnoses Not on filedocumented in this encounter Care Teams Bedspread Cutter Relationship Specialty Start Date End Date Lovely Vicente MD PCP - General 04/16/[address] [place] [address] [address] [facility] [address] [place] [address] documented as of this encounter
--- OUTSIDE RECORDS SUMMARY | 2022-04-01 10:03 | XMS_ITS | Encounter Summary ---
:1945 Author Organization [facility] [place] [address] Care Team Providers Name Role Phone Lovely Vicente MD Primary Care Provider Reason for Visit Reason Comments Follow-up Skin Check Encounter Details Date Type Department Care Team Description 01/06/2018 Office Visit Dermatology at Rig[facility]to Formantipmirna nevi; Abdelrahman HOOPER MD History of melanoma; [address] [facility] [place] [address] [facility] [place], [place] [address] Social History Tobacco Use Types [...] Description 05/28/2022 Appointment Cardiology Zulma Dolan MD [facility] [address] [place], [place] [address] (Wo rk) 05/28/2022 Laboratory Appointment Lab 05/28/2022 Office Visit Cardiology Zulma Dolan MD [facility] [place] [address] Liz Poole PA [facility] [place] [address] 06/10/2022 Office Visit Dermatology Laura Scherer MD [facility] [address] [place], [place] [address] (Wo rk) documented as of this encounter Visit Diagnoses Diagnosis Multiple nevi Benign neoplasm of skin, site unspecifie d History of melanoma Personal history of malignant melanoma o f skin Seborrheic keratosis Other seborrheic keratosis documented in this encounter Care Teams Manipulative Therapy Specialist Relationship Specialty Start Date End Date Lovely Vicente MD PCP - General 04/16/[address] [place] [address] documented as of this encounter
--- OUTSIDE RECORDS SUMMARY | 2022-04-01 10:03 | XMS_ITS | Encounter Summary ---
:1945 [place] [address] Care Team Providers Name Role Phone Lovely Vicente MD Primary Care Provider Encounter Details Date Type Department Care Team Description 08/15/2018 Laboratory Appointment Lab 3L [facility] [place] [address] Social History Tobacco Use Types Packs/Day [...] MD [facility] er [place], [place] [address] (Wo rk) 05/28/2022 Laboratory Appointment Lab 05/28/2022 Office Visit Cardiology Zulma Dolan MD [facility] [place] [address] Liz Poole PA [facility] [place] [address] 06/10/2022 Office Visit Dermatology Laura Scherer MD [facility] ER [address] [place], [place] [address] (Wo rk) documented as of this encounter Procedures Procedure Name Priority Date/Time Associated Diagnosis Comme nts PROTHROMBIN TIME Routine 08/15/2018 8:04 AM Resul ts for this EST procedure are i n the results section. documented in this encounter Results (ABNORMAL) Prothrombin Time (08/15/2018 8:04 AM EST) P athologist Signature PT 24.0 (H) 9.4 - 12.5 [facility] LABORATORY INR 2.[address] [facility] LABORATORY [...] Organization Address City/State/[place] [address] documented in this encounter Visit Diagnoses Not on filedocumented in this encounter Care Teams Product Marketing Coordinator Relationship Specialty Start Date End Date Lovely Vicente MD PCP - General 04/16/[address] [place] [address] documented as of this encounter
--- OUTSIDE RECORDS SUMMARY | 2022-04-01 10:03 | XMS_ITS | Encounter Summary ---
:1945 Author Organization [facility] [place] [address] Care Team Providers Name Role Phone Lovely Vicente MD Primary Care Provider Encounter Details Date Type Department Care Team Description 09/06/2017 Telephone Vascular Surgery at [facility] Ninfa Clark, [place] [address] Social History Tobacco Use Types Packs/Day [...] Dolan MD [facility] [place], [place] [address] (Wo rk) 05/28/2022 Laboratory Appointment Lab 05/28/2022 Office Visit Cardiology Zulma Dolan MD [facility] [place] [address] Liz Poole PA [facility] [place] [address] 06/10/2022 Office Visit Dermatology Laura Scherer MD [facility] DR [address] [place], [place] [address] (Wo rk) documented as of this encounter Visit Diagnoses Not on filedocumented in this encounter Care Teams Public School Teacher Relationship Specialty Start Date End Date Lovely Vicente MD PCP - General 04/16/[address] [place] [address] documented as of this encounter
--- OUTSIDE RECORDS SUMMARY | 2022-04-01 10:03 | XMS_ITS | Encounter Summary ---
:1945 Author Organization [facility] [place] [address] Care Team Providers Name Role Phone Lovely Vicente MD Primary Care Provider Reason for Visit Reason Comments Skin Check Encounter Details Date Type Department Care Team Description 07/06/2018 Office Visit Dermatology at Selina Garcia, Rigoberto Yarbrough (actinic keratosis); MD SHAY Quick III (seborrheic keratosis); [address] [facility] History of melanoma; [place] [address] Skin exam for malignant neoplasm [phone] [facility]-DERMATOLGY [place], [place] [address] Social History Tobacco Use Types [...] Description 05/28/2022 Appointment Cardiology Zulma Dolan MD [facility] [address] [place], [place] [address] (Wo rk) 05/28/2022 Laboratory Appointment Lab 05/28/2022 Office Visit Cardiology Zulma Dolan MD [facility] [place] [address] Liz Poole PA [facility] [place] [address] 06/10/2022 Office Visit Dermatology Laura Scherer MD [facility] [address] [place], [place] [address] (Wo rk) documented as of this encounter Visit Diagnoses Diagnosis AK (actinic keratosis) Actinic keratosis [place] (seborrheic keratosis) Other seborrheic keratosis History of melanoma Personal history of malignant melanoma o f skin Skin exam for malignant neoplasm Screening for malignant neoplasm of the skin documented in this encounter Care Teams Emergency Department Manager Relationship Specialty Start Date End Date Lovely Vicente MD PCP - General 04/16/[address] [place] [address] documented as of this encounter
--- OUTSIDE RECORDS SUMMARY | 2022-04-01 10:03 | XMS_ITS | Encounter Summary ---
:1945 Author Organization [facility] [place] [address] Care Team Providers Name Role Phone Lovely Vicente MD Primary Care Provider Reason for Visit Reason Onset Date Comments Other 03/24/2019 cardiac clearance ne eded Encounter Details Date Type Department Care Team Description 03/24/2019 Telephone Cardiology at [facility] Danette Maxwell, Other (cardiac [facility] FINANCIAL COUNSELOR clearance needed) [place] [address] CARDIOLOGY [place], [place] [address] (Wo rk) Social History [...] AM EDT Leonela from [facility] [place] called requesting cardiac clearance for this patient who is to have a colonoscopy on 04/04/19. He is on anticoagulation and they will need to bridge him. Their phone # [phone], fax# [phone]. Thank you. documented in this encounter Plan of Treatment Upcoming Encounters Date Type Specialty Care Team Description 05/28/2022 Appointment Cardiology Zulma Dolan MD [facility] [place], [place] [address] (Wo rk) 05/28/2022 Laboratory Appointment Lab 05/28/2022 Office Visit Cardiology Zulma Dolan MD [facility] [place] [address] Liz Poole PA [facility] [place] [address] 06/10/2022 Office Visit Dermatology Laura Scherer MD [facility] [address] [place], [place] [address] (Wo rk) documented as of this encounter Visit Diagnoses Not on filedocumented in this encounter Care Teams Technical Solutions Director Relationship Specialty Start Date End Date Lovely Vicente MD PCP - General 04/16/[address] [place] [address] documented as of this encounter
--- OUTSIDE RECORDS SUMMARY | 2022-04-01 10:03 | XMS_ITS | Encounter Summary ---
:1945 Author Organization [facility] [place] [address] Care Team Providers Name Role Phone Lovely Vicente MD Primary Care Provider Reason for Referral Diagnostic Test (Routine) - Closed Specialty Diagnoses / Procedures Referred By Contact Refer red To Contact Cardiology Diagnoses Ischemic cardiomyopathy Acute on chronic systolic congestive heart failure Danette Maxwell APRN [facility] Non-Inv Card Lab Procedures Echocardiogram Transthoracic(Leb) [place] [address] [place] [address] Referral ID Status Reason Start Date Expiration Date Visits V isits Requested Authorized [id number] Closed Specialty 08/30/2017 08/30/2018 1 1 Service Requested Reason for Visit Diagnostic Test (Routine) - Closed Specialty Diagnoses / Procedures Referred By Contact Refer red To Contact Cardiology Diagnoses Ischemic cardiomyopathy Acute on chronic systolic congestive heart failure Danette Maxwell APRN [facility] Non-Inv Card Lab Procedures Echocardiogram Transthoracic(Leb) [place] [address] [place] [address] Referral ID Status Reason Start Date Expiration Date Visits V isits Requested Authorized [id number] Closed Specialty 08/30/2017 08/30/2018 1 1 Service Requested Encounter Details Date Type Department Care Team Description 10/07/2017 Hospital Encounter Non-Invasive Ischemic cardiomyopathy; Cardiology Lab Barbara Craig on chronic systolic [place] [address] Social History Tobacco Use Types Packs/Day [...] Description 05/28/2022 Appointment Cardiology Zulma Dolan MD [facility] Medical [facility] [address], [place] [address] (Wo rk) 05/28/2022 Laboratory Appointment Lab 05/28/2022 Office Visit Cardiology Zulma Dolan MD [facility] [place] [address] Liz Poole PA [facility] [place] [address] 06/10/2022 Office Visit Dermatology Laura Scherer MD [facility] [address] [place], [place] [address] (Wo rk) documented as [...] Mccollum ? (Age): 1945(72y) Med Rec#: ? [id number] ?Sex: ?M ? Site Loc: ? [facility] ?Ht / Wt: ??173(cm)/82(kg) Pt. Loc: ?Echo Lab ?BSA: ?1.96 Study Date: ?? 10/07/2017 ?Pt. Type: Outpatient Tape: ? Referring: Danette Maxwell Reading: Iker Cuevas ([id number]) Monotyper: Yonathan Bocanegra Diagnosis: *ICD-10-PCS Ischemic cardiomyopathy (I2 [...] E-wave Vmax ?1.2 ?m/sec ? MV deceleration [id number] ?msec ? MV A-wave Vmax ?1 ?m/sec [...] ? Mid-Inferior ?Hypokinetic ? Mid-Inferoseptal ?Hypokinetic ? [place]-Septal ? Akinetic ? [place]-Anterior ? Hypokinetic ? [place]-Lateral ?Hypokinetic ? [place]-Inferior ? Hypokinetic ? [place]-Tip ?Akinetic ? This report has been electronically sign ed by: _ Iker Cuevas M.D. ? 10/07/2017 11:12:34 Images reviewed and interpretation verif ied [facility] Cardiac Ultrasound Laboratory Procedure Note Iker Cuevas MD - 10/07/2017Formatti ng of this note might be different from the original. Procedure: Transthoracic Echocardiogram Patient: NATALYA MCBRIDE(Age): [birth year]72y) Med Rec#: [id number] Sex: M Site Loc: [facility] Ht / Wt: 173(cm)/82(kg) Pt. Loc: Echo Lab BSA: 1.96 Study Date: 10/07/2017 Pt. Type: Outpati ent Tape: Referring: Danette Maxwell Reading: Iker Cuevas ([id number]) Monotyper: Yonathan Bocanegra Diagnosis: *ICD-10-PCS Ischemic cardiomyopathy (I2 [...] MV E-wave Vmax 1.2 m/sec MV deceleration [id number] msec MV A-wave Vmax 1 m/sec MV [...] Akinetic Mid-Posterolateral Hypokinetic Mid-Inferior Hypokinetic Mid-Inferoseptal Hypokinetic [place]-Septal Akinetic [place]-Anterior Hypokinetic [place]-Lateral Hypokinetic [place]-Inferior Hypokinetic [place]-Tip Akinetic This report has been electronically sign ed by: _ Iker Cuevas M.D. 10/07/2017 11:12 :34 Images reviewed and interpretation elvie hwang [facility] Cardiac Ultrasound Laboratory Danette Maxwell [...] Routine documented in this encounter Care Teams Loans Consultant Relationship Specialty Start Date End Date Lovely Vicente MD PCP - General 04/16/[address] [place] [address] documented as of this encounter
--- OUTSIDE RECORDS SUMMARY | 2022-04-01 10:03 | XMS_ITS | Encounter Summary ---
:1945 Author Organization [facility] [address] Care Team Providers Name Role Phone Lovely Vicente MD Primary Care Provider Encounter Details Date Type Department Care Team Description 09/07/2017 Laboratory Appointment Lab 3L [facility] [place] [phone] Social History Tobacco Use Types Packs/Day Years [...] Cardiology Zulma Dolan MD [facility] er [place], [place] [address] (Wo rk) 05/28/2022 Laboratory Appointment Lab 05/28/2022 Office Visit Cardiology Zulma Dolan MD [place] [address] Liz Poole PA [facility] [place] [address] 06/10/2022 Office Visit Dermatology Laura Scherer MD [facility] ER [address] [place], [place] [address] (Wo rk) documented as of this encounter [...] PM EST) athologist Signature Thyroglobulin 1.4 <=54.9 [facility] ng/mL [facility] LABORATORY Comment: Thyroglobulin levels may [...] Address City/State/[place] [address] TSH (09/07/2017 2:41 PM EST) athologist Signature TSH 3.93 0.27 - 4.20 [facility] LABORATORY Specimen Anatomical Collection Method Collection Time Receive d Time (Source) Location / / Volume Laterality Blood specimen 09/07/2017 2:41 PM 018 2:46 (specimen) EST PM EST Resulting Agency Comment Spec In Lab Luz Prescott MD CHEMISTRY ORDERABLES Performing Organization Address City/State/[place] [address] documented in this encounter Visit Diagnoses Diagnosis Hx of papillary thyroid carcinoma Personal history of malignant neoplasm o f thyroid documented in this encounter Care Teams Poultry Farmer Egg Relationship Specialty Start Date End Date Lovely Vicente MD PCP - General 04/16/[address] [place] [address] documented as of this encounter
--- OUTSIDE RECORDS SUMMARY | 2022-04-01 10:03 | XMS_ITS | Encounter Summary ---
:1945 Author Organization [facility] Address [address] [place] [address] Care Team Providers Name Role Phone Lovely Vicente MD Primary Care Provider Reason for Referral Diagnostic Test (Routine) - Closed Specialty Diagnoses / Procedures Referred By Contact Refer red To Contact Cardiology Diagnoses Chronic systolic heart failure Danette Maxwell APRN [facility] Non-Inv Card Lab Procedures Echocardiogram Transthoracic(Leb) [facility] [place] [address] [place] [address] Referral ID Status Reason Start Date Expiration Date Visits V isits Requested Authorized [id number] Closed Specialty 07/17/2019 09/14/2019 1 1 Service Requested Encounter Details Date Type Department Care Team Description 01/16/2019 Office Visit Cardiology at [facility] Danette Maxwell, Chronic systolic heart failu re; [facility] STACIE Cardiomyopathy, ischemic; Drive [facility] Hx of thyroid cancer; [place], [place] DR ELMORE (arteriosclerotic heart disease); [phone] CARDIOLOGY MARIA VICTORIA (obstructive sleep apnea) on CPAP [phone] [place], [place] [address] (Wo rk) Social History Tobacco Use Types [...] K+ 4.6 today 6. Post-op atrial fibrillation [id number] (CHF, HTN, DM, vascular disease, thromboembolism) Amiodarone discontinued Continue coumadin INR managed by PCP. 2.1 today 7. PAD 08/06/2017: Right 1st, 2nd, 3rd toe amputation 08/11/2017: Left??femoral arterial access, RLE??angiogram, Balloon angioplasty of R PT with Eleazar 2.5 x 80 10/25/2017: right popliteal-pedal bypass at [facility] 8. Hypothyrodism S/p thyroidectomy for goiter [...] Zulma Dolan MD [facility] [place], [place] [address] (Wo rk) 05/28/2022 Laboratory Appointment Lab 05/28/2022 Office Visit Cardiology Zulma Dolan MD [place] [address] Liz Poole PA [facility] [place] [address] 06/10/2022 Office Visit Dermatology Laura Scherer MD [facility] [address]DERMAT OLOGY [place], [place] [address] (Wo rk) documented as of this encounter Results ECHOCARDIOGRAM COMPLETE W CONTRAST (07/28/2019 8:19 AM EST) athologist Signature EF 40 HEARTLAB SYSTEM Anatomical Region Laterality Modality Other Specimen (Source) Anatomical Location Collection Method / Collectio n Time Received Time / Laterality Volume 07/28/2019 Narrative 07/28/2019 8:38 AM EST Procedure: ?Transthoracic Echocardiogram Patient: ?NATALYA Mccollum ? (Age): 1945(74y) Med Rec#: ? [id number] ?Sex: ?M ? Site Loc: ? [facility] ?Ht / Wt: ??172(cm)/81(kg) Pt. Loc: ?Echo Lab ?BSA: ?1.94 Study Date: ?? 07/28/2019 ?Pt. Type: Outpatient Tape: ? Referring: MARY ELLEN Reading: Ifeanyi Truong ([id number]) Psychologist Developmental: Fadumo Flanagan RDCS, REGINA Diagnosis: *Chronic systolic [...] E-wave Vmax ?1 ?m/sec ? MV deceleration lytw717.5 ? msec ? MV A-wave Vmax ?1 [...] ? Mid-Inferior ?Hypokinetic ? Mid-Inferoseptal ?Normal ? Volga-Septal ? Normal ? Volga-Anterior ? Hypokinetic ? Volga-Lateral ?Normal ? Volga-Inferior ? Akinetic ? Volga-Tip ?Hypokinetic ? This report has been electronically sign ed by: _ Ifeanyi Truong M.D. ? 07/28/2019 0 8:38:01 Images [facility] Procedure Note Ifeanyi Truong MD - 07/28/2019Formatt ing of this note might be different from the original. Procedure: Transthoracic Echocardiogram Patient: NATALYA MCBRIDE(Age): [birth year]74y) Med Rec#: [id number] Sex: M Site Loc: [facility] Ht / Wt: 172(cm)/81(kg) Pt. Loc: Echo Lab BSA: 1.94 Study Date: 07/28/2019 Pt. Type: Outpati ent Tape: Referring: MARY ELLEN Reading: Ifeanyi Truong ([id number]) Psychologist Developmental: Fadumo Flanagan [facility], REGINA Diagnosis: *Chronic systolic (congestive) heart fa [...] MV E-wave Vmax 1 m/sec MV deceleration ydrr721.5 msec MV A-wave Vmax 1 m/sec MV [...] Normal Mid-Posterolateral Normal Mid-Inferior Hypokinetic Mid-Inferoseptal Normal Volga-Septal Normal Volga-Anterior Hypokinetic Volga-Lateral Normal Volga-Inferior Akinetic Volga-Tip Hypokinetic This report has been electronically sign ed by: _ Ifeanyi Truong M.D. 07/28/2019 08:38:0 1 Images reviewed and interpretation verif ied [facility] Cardiac Ultrasound Laboratory Danette Maxwell APRN ECHO ORDERABLES (ABNORMAL) Basic Metabolic Panel (non-fasting) (01/16/2019 7:49 AM EDT) P athologist Signature Glucose Lvl 105 65 - 199 [facility] mg/dL [facility] Comment: Diabetes: >=200 mg/dL plus [...] of body mass or the acutely ill. http://[employer]/Shutlnkf eGFR 79 >=60 mL/min/1.73 m?? [facility] Comment: The eGFR was calculated using the CKD-EP I equation. As with all creatinine based estimates of kidney function, eGFR values calculated with the CKD-EPI equation are not accurate in patients wi th acute kidney failure, extremes of body mass or the acutely ill. http://[employer]/[facility]SAnkf Specimen Anatomical Collection Method Collection Time Receive d Time (Source) Location / / Volume Laterality Blood specimen 01/16/2019 7:49 AM 019 7:55 (specimen) EDT AM EDT Resulting Agency Comment Spec In Lab Danette Maxwell APRN CHEMISTRY ORDERABLES Performing Organization Address City/State/[place] [address] (ABNORMAL) pro-Brain Natriuretic Peptide (01/16/2019 7:49 AM EDT) P athologist Signature ProBNP 780 (H) <=125 pg/mL [facility] Specimen Anatomical Collection Method Collection Time Receive d Time (Source) Location / / Volume Laterality Blood specimen 01/16/2019 7:49 AM 019 7:55 (specimen) EDT AM EDT Resulting Agency Comment Spec In Lab Danette Maxwell BUNK HOUSE WORKER CHEMISTRY ORDERABLES Performing Organization Address City/State/[place] [address] documented in this encounter Visit Diagnoses Diagnosis Chronic systolic heart failure Cardiomyopathy, ischemic Other specified forms of chronic ischemi c heart disease Hx of thyroid cancer Personal history of malignant neoplasm o f thyroid ASHD (arteriosclerotic heart disease) Coronary atherosclerosis of unspecified type of vessel, ewiiaapaayp or graft MARIA VICTORIA (obstructive sleep apnea) on CPAP Obstructive sleep apnea (adult) (pediatr ic) Chronic systolic heart failure documented in this encounter Care Teams Director Of Critical Care Relationship Specialty Start Date End Date Lovely Vicente MD PCP - General 04/16/[address] [place] [address] documented as of this encounter
--- OUTSIDE RECORDS SUMMARY | 2022-04-01 10:03 | XMS_ITS | Encounter Summary ---
:1945 Author Organization [facility] [place] [address] Care Team Providers Name Role Phone Lovely Vicenet MD Primary Care Provider Reason for Visit Reason Onset Date Comments VNA Calls 08/30/2017 Encounter Details Date Type Department Care Team Description 08/30/2017 Telephone Vascular Surgery at [facility] Cora Reid RN VNA Calls [facility] [place] [address] Social History Tobacco Use Types Packs/Day [...] EST Caller: Alfonso at [facility] [phone] Reason for call: Changing his wound vac [...] Dolan MD [facility] [address] [place], [place] [address] (Wo rk) 05/28/2022 Laboratory Appointment Lab 05/28/2022 Office Visit Cardiology Zulma Dolan MD [facility] [place] [address] Liz Poole PA [facility] [place] [address] 06/10/2022 Office Visit Dermatology Laura Scherer MD [facility] DR [address] [place], [place] [address] (Wo rk) documented as of this encounter Visit Diagnoses Not on filedocumented in this encounter Care Teams Social Services Assistant Relationship Specialty Start Date End Date Lovely Vicente MD PCP - General 04/16/[address] [place] [address] documented as of this encounter
--- OUTSIDE RECORDS SUMMARY | 2022-04-01 10:03 | XMS_ITS | Encounter Summary ---
:1945 Author Organization [facility] [place] [address] Care Team Providers Name Role Phone Lovely Vicente MD Primary Care Provider Encounter Details Date Type Department Care Team Description 09/16/2017 Hospital [place] [address] Social History Tobacco Use Types Packs/Day [...] Zulma Dolan MD [facility] [place], [place] [address] (Wo rk) 05/28/2022 Laboratory Appointment Lab 05/28/2022 Office Visit Cardiology Zulma Dolan MD [facility] [place] [address] Liz Poole PA [facility] [place] [address] 06/10/2022 Office Visit Dermatology Laura Scherer MD [facility] DR [address]DERMAT OLOGY [place], [place] [address] (Wo rk) documented as [...] [facility] Method Time Signature Surgical [id number] ? Location: [facility] Pathology PORTAL Report The signing pathologist has (i) examined [...] Henrique Flower Verified: ??09/24/2017 ?Pathologist Performed at: ??-[facility] Dept. of Pathology, [place], [place] CLINICAL INFORMATION Specimen Submitted: A - [...] City/State/[place] [address] documented in this encounter Visit Diagnoses Not on filedocumented in this encounter Care Teams Electrifier Operator Relationship Specialty Start Date End Date Lovely Vicente MD PCP - General 04/16/[address] [place] [address] documented as of this encounter
--- OUTSIDE RECORDS SUMMARY | 2022-04-01 10:03 | XMS_ITS | Encounter Summary ---
:1945 Author Organization [facility] Address [facility] [place] [address] Care Team Providers Name Role Phone Lovely Vicente MD Primary Care Provider Encounter Details Date Type Department Care Team Description 10/07/2017 Office Visit Cardiology at [facility] Danette Maxwell Chronic systolic heart failu re; [facility] A, OFFICE SUPPORT ASSISTANT S/P CABG x 3; Drive [facility] On amiodarone therapy; [place], [place] Atrial fibrillation, unspecified type; [address] CARDIOLOGY ASCVD (arteriosclerotic cardiovascular d isease) [phone] [place], [place] [address] Social History Tobacco Use Types [...] - documented in this encounter Progress Notes [place] Danette A, OFFICE SUPPORT ASSISTANT - 10/07/2017 11:20 AM EDT ID and [...] 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 [...] by Dr. Espino On IV antibiotics at [facility] Today: Mr. Fatima is accompanied [...] continue to see Dr. Bains well at [facility] and follow his wound on his right lower extremity. And she will continue to direct antibiotic treatment. Ihave asked that the echocardiogram results be faxed to Dr. Zurita at [facility]. 1. ASCVD Continue ASA, [...] and bone removal by Dr. Aguero at [facility]. Currently receiving IV antibiotics at [facility] ? Plan: 1. A review [...] Zulma Dolan MD [facility] [place], [place] [address] (Wo rk) 05/28/2022 Laboratory Appointment Lab 05/28/2022 Office Visit Cardiology Zulma Dolan MD [facility] [place] [address] Liz Poole PA [facility] [place] [address] 06/10/2022 Office Visit Dermatology Laura Scherer MD [facility] DR [address]MAT OLOGY [place], [place] [address] (Wo rk) documented as of this encounter Results (ABNORMAL) Basic Metabolic Panel (non-fasting) (10/07/2017 8:48 AM EDT) athologist Signature Glucose Lvl 99 65 - 199 [facility] mg/dL [facility] Estimated GFR >60 >=60 [facility] Comment: The reported eGFR should be multiplied b y 1.2 for patients. The MDRD is not an appropriate measure o f renal function for patients with body mass extremes or in patients with acute kidney failure. http://LE TOTE.damntheradio/DHnkdep http://[employer]/DHMCnkf Specimen Anatomical Collection Method Collection Time Receive d Time (Source) Location / / Volume Laterality Blood specimen 10/07/2017 8:48 AM 018 8:50 (specimen) EDT AM EDT Resulting Agency Comment Spec In Lab Danette Maxwell APRN CHEMISTRY ORDERABLES Performing Organization Address City/State/[place] [address] (ABNORMAL) pro-Brain Natriuretic Peptide (10/07/2017 8:48 AM EDT) P athologist Signature ProBNP 1,170 (H) <=125 [facility] pg/mL [facility] Specimen Anatomical Collection Method Collection Time Receive d Time (Source) Location / / Volume Laterality Blood specimen 10/07/2017 8:48 AM 018 8:50 (specimen) EDT AM EDT Resulting Agency Comment Spec In Lab Danette Maxwell APRN CHEMISTRY ORDERABLES Performing Organization Address City/State/[place] [address] documented in this encounter Visit Diagnoses Diagnosis Chronic systolic heart failure S/P CABG x 3 Postsurgical aortocoronary bypass status On amiodarone therapy Atrial fibrillation, unspecified type ASCVD (arteriosclerotic cardiovascular d isease) Unspecified cardiovascular disease documented in this encounter Care Teams Manager Category Relationship Specialty Start Date End Date Lovely Vicente MD PCP - General 04/16/[address] [place] [address] documented as of this encounter
--- OUTSIDE RECORDS SUMMARY | 2022-04-01 10:03 | XMS_ITS | Encounter Summary ---
:1945 Author Organization [facility] [address] Care Team Providers Name Role Phone Lovely Vicetne MD Primary Care Provider Reason for Visit Reason Onset Date Comments Follow-up 07/13/2018 amiodarone discontin ued Encounter Details Date Type Department Care Team Description 07/13/2018 Telephone Cardiology at [facility] Martha Comer, Follow-up (amiodarone [facility] RN discontin ued) [place] [address] Social History Tobacco Use Types Packs/Day [...] RN - 07/13/2018 8:57 AM EST Per AUTO POLISHER Hans call placed to the home number for the pt. confirmed that the pt is still taking the amiodarone. Pt is to stop the amiodarone. Pt taking it for post op a-fib, therapy was supposed to be for 30 days. Message given to his . She will give him the message and will have him call with any questions. Call placed to the [facility] pharmacy in [place] to discontinue it there as well. Med list updated. documented in this encounter Plan of Treatment Upcoming Encounters Date Type Specialty Care Team Description 05/28/2022 Appointment Cardiology Zulma Dolan MD [facility] [address] [place], [place] [address] (Wo rk) 05/28/2022 Laboratory Appointment Lab 05/28/2022 Office Visit Cardiology Zulma Dolan MD [facility] [place] [address] Liz Poole PA [facility] [place] [address] 06/10/2022 Office Visit Dermatology Laura Scherer MD [facility] DR [address]MAT [place], [place] [address] (Wo rk) documented as of this encounter Visit Diagnoses Not on filedocumented in this encounter Care Teams Scout Professional Sports Relationship Specialty Start Date End Date Lovely Vicente MD PCP - General 04/16/[address] [place] [address] documented as of this encounter
--- OUTSIDE RECORDS SUMMARY | 2022-04-01 10:03 | XMS_ITS | Encounter Summary ---
:1945 Author Organization [facility] [place] [address] Care Team Providers Name Role Phone Lovely Vicente MD Primary Care Provider Encounter Details Date Type Department Care Team Description 08/15/2018 Laboratory Lab 3L Katalina Chronic systoli c heart failure; Appointment [facility] ASCVD (ar teriosclerotic cardiovascular disease) [place] [address] Social History Tobacco Use Types [...] MD [facility] [place] [address] [place], [place] [address] (Wo rk) 05/28/2022 Laboratory Appointment Lab 05/28/2022 Office Visit Cardiology Zulma Dolan MD [facility] [place] [address] Liz Poole PA [facility] [place] [address] 06/10/2022 Office Visit Dermatology Laura Scherer MD [facility] ER [address] TEJA GR-DERMAT [place], [place] [address] (Wo rk) documented as of [...] Glucose Lvl 116 65 - 199 [facility] mg/dL [facility] [...] of body mass or the acutely ill. http://[employer] Care/[facility] WEATHERFORDnkf eGFR 79 >=60 mL/min/1.73 m?? [facility] Comment: The eGFR was calculated using the CKD-EP I equation. As with all creatinine based estimates of kidney function, eGFR values calculated with the CKD-EPI equation are not accurate in patients wi th acute kidney failure, extremes of body mass or the acutely ill. http://[employer] Care/[facility] WEATHERFORDnkf Specimen Anatomical Collection Method Collection Time Receive d Time (Source) Location / / Volume Laterality Blood specimen 08/15/2018 8:04 AM 019 8:20 (specimen) EST AM EST Resulting Agency Comment Spec In Lab Danette Maxwell APRN CHEMISTRY ORDERABLES Performing Organization Address City/State/[place] [address] Lipid Panel (08/15/2018 8:04 AM EST) P athologist Signature Chol, Total 75 mg/dL [facility] Comment: Lower Risk: <200 mg/dL Average Risk: 200-239 mg/dL Higher Risk: >fi=946 mg/dL Triglycerides 185 mg/dL [facility] Comment: Average Risk/Lower Risk: <150 mg/dL Borderline High Risk: 150-199 mg/dL High Risk: 200-499 mg/dL Very High Risk: >xj=289 mg/dL HDL 32 mg/dL [facility] Comment: Males: ?? Higher Risk: <40 mg/dL Females: ?? HIgher Risk: <50 mg/dL LDL Cholesterol 6 mg/dL [facility] Comment: Lowest Risk: <100 mg/dL Lower Risk: 100-129 mg/dL Borderline High Risk: 130-159 mg/dL High Risk: 160-189 mg/dL Very High Risk: >go=651 mg/dL Chol/HDL Ratio 2.3 ratio [facility] Lipid Interpretation See Note [facility] Comment: Lipid management should be guided by a p atient? s ASCVD risk, goals and preferences. ACC/AHA Guidelines recommend high intens ity statin if clinical ASCVD or LDL greater than or equal to 190 mg/dL. http://[employer]idential.com/SRU-YHJ-Upvwsxmto Adults aged 40-75 with LDL 70-189 mg/dL should have their 10 year ASCVD risk estimated with the ACC/AHA ASCVD risk es timator http://tools.acc.org/OECYR-Qxlv-Qgesmciq r/ Statin should be discussed if risk [...] Organization Address City/State/[place] [address] (ABNORMAL) pro-Brain Natriuretic Peptide (08/15/2018 8:04 AM EST) athologist Signature ProBNP 1,797 (H) <=125 [facility] pg/mL [facility] Specimen Anatomical Collection Method Collection Time Receive d Time (Source) Location / / Volume Laterality Blood specimen 08/15/2018 8:04 AM 019 8:20 (specimen) EST AM EST Resulting Agency Comment Spec In Lab Danette Maxwell APRN CHEMISTRY ORDERABLES Performing Organization Address City/State/[place] [address] documented in this encounter Visit Diagnoses Diagnosis Chronic systolic heart failure ASCVD (arteriosclerotic cardiovascular d isease) Unspecified cardiovascular disease documented in this encounter Care Teams Embossing Machine Tender Relationship Specialty Start Date End Date Lovely Vicente MD PCP - General 04/16/[address] [place] [address] documented as of this encounter
--- OUTSIDE RECORDS SUMMARY | 2022-04-01 10:03 | XMS_ITS | Encounter Summary ---
:1945 Author Organization [facility] [place] [address] Care Team Providers Name Role Phone Lovely Vicente MD Primary Care Provider Encounter Details Date Type Department Care Team Description 11/29/2017 Laboratory Lab 3L Barbara Chronic systoli c congestive heart failure; Appointment [facility] ASCVD (ar teriosclerotic cardiovascular disease); Hospital Cardiomyopathy, [place] [address] Social History Tobacco Use Types [...] MD [facility] er [place], [place] [address] (Wo rk) 05/28/2022 Laboratory Appointment Lab 05/28/2022 Office Visit Cardiology Zulma Dolan MD [facility] [place] [address] Liz Poole PA [facility] [place] [address] 06/10/2022 Office Visit Dermatology Laura Scherer MD [facility] ER DR [address]-DERMAT [...] [facility] LABORATORY INR 2.1 [facility] Comment: An [...] Organization Address City/State/[place] [address] (ABNORMAL) Basic Metabolic Panel (non-fasting) (11/29/2017 8:22 AM EDT) P athologist Signature Glucose Lvl 217 (H) 65 - 199 [facility] mg/dL [facility] [...] [facility] Estimated GFR >60 >=60 [facility] Comment: The reported eGFR should be multiplied b y 1.2 for patients. The MDRD is not an appropriate measure o f renal function for patients with body mass extremes or in patients with acute kidney failure. http://Indicative Software.Dazo/DHnkdep http://CanaryHop/DHMCnkf Specimen Anatomical Collection Method Collection Time Receive d Time (Source) Location / / Volume Laterality Blood specimen 11/29/2017 8:22 AM 018 8:29 (specimen) EDT AM EDT Resulting Agency Comment Spec In Lab Danette Maxwell APRN CHEMISTRY ORDERABLES Performing Organization Address City/State/[place] [address] (ABNORMAL) pro-Brain Natriuretic Peptide (11/29/2017 8:22 AM EDT) P athologist Signature ProBNP 1,769 (H) <=125 [facility] pg/mL [facility] Specimen Anatomical Collection Method Collection Time Receive d Time (Source) Location / / Volume Laterality Blood specimen 11/29/2017 8:22 AM 018 8:29 (specimen) EDT AM EDT Resulting Agency Comment Spec In Lab Danette Maxwell APRN CHEMISTRY ORDERABLES Performing Organization Address City/State/ZIP Code Phon e Number [address] Lavender Tube HOLD (11/29/2017 8:14 AM EDT) Patholo gist Method Time Signature Lavender Hold Sample in [facility] lab. [facility] Specimen Anatomical Collection Method Collection Time Receive d Time (Source) Location / / Volume Laterality Blood specimen No Charge / 11/29/2017 8:14 AM 018 8:29 (specimen) Unknown EDT AM EDT Lovely Vicente MD HEMATOLOGY ORDERABLES Performing Organization Address City/State/[place] [address] documented in this encounter Visit Diagnoses Diagnosis Chronic systolic congestive heart failur e Chronic systolic heart failure ASCVD (arteriosclerotic cardiovascular d isease) Unspecified cardiovascular disease Cardiomyopathy, ischemic Other specified forms of chronic ischemi c heart disease documented in this encounter Care Teams Harness Brusher Relationship Specialty Start Date End Date Lovely Vicente MD PCP - General 04/16/[address] [place] [address] documented as of this encounter
--- OUTSIDE RECORDS SUMMARY | 2022-04-01 10:03 | XMS_ITS | Encounter Summary ---
:1945 Author Organization [facility] [place] [address] Care Team Providers Name Role Phone Lovely Vicente MD Primary Care Provider Encounter Details Date Type Department Care Team Description 10/05/2017 Telephone Cardiology at [facility] Tamiko Sin MD [facility] [place] [address] CARDIOLOGY DEPT [phone] [place], [place] [address] (Wo rk) Social History Tobacco [...] MD [facility] er Dr [place] 0[address] (Wo rk) 05/28/2022 Laboratory Appointment Lab 05/28/2022 Office Visit Cardiology Zulma Dolan [place] [address] Liz Poole PA [facility] [place] [address] 06/10/2022 Office Visit Dermatology Laura Scherer MD [facility] ER DR TE[address]MAT [place], [place] [address] (Wo rk) documented as of this encounter Visit Diagnoses Not on filedocumented in this encounter Care Teams Gill Net Stringer Relationship Specialty Start Date End Date Lovely Vicente MD PCP - General 04/16/[address] [place] [address] documented as of this encounter
--- OUTSIDE RECORDS SUMMARY | 2022-04-01 10:03 | XMS_ITS | Encounter Summary ---
:1945 Author Organization [facility] [place] [address] Care Team Providers Name Role Phone Lovely Vicente MD Primary Care Provider Encounter Details Date Type Department Care Team Description 10/07/2017 Laboratory Appointment Lab [facility]L [facility] [place] [id number] Social History Tobacco Use Types Packs/Day Years [...] Dolan MD [facility] er [place], [place] [address] (Wo rk) 05/28/2022 Laboratory Appointment Lab 05/28/2022 Office Visit Cardiology Zulma Dolan MD [facility] [place] [address] Liz Poole PA [facility] [place] [address] 06/10/2022 Office Visit Dermatology Laura Scherer MD [facility] ER DR TEJA GR-DERMAT ENIDReal [facility] [place] Amy (Wo rk) documented as of [...] Signature Glucose Lvl 99 65 - 199 [facility] mg/dL [facility] [...] Calcium 8.4 (L) 8.5 - 10.5 mg/dL [facility] Estimated GFR >60 >=60 [facility] Comment: The reported eGFR should be multiplied b y 1.2 for patients. The MDRD is not an appropriate measure o f renal function for patients with body mass extremes or in patients with acute kidney failure. http://Sigma Force.Boticca/DHnkdep http://Sigma Force.Boticca/DHMCnkf Specimen Anatomical Collection Method Collection Time Receive d Time (Source) Location / / Volume Laterality Blood specimen 10/07/2017 8:48 AM 018 8:50 (specimen) EDT AM EDT Resulting Agency Comment Spec In Lab Danette Maxwell SOLAR INSTALLATION FOREMAN CHEMISTRY ORDERABLES Performing Organization Address City/[facility]/ZIP Code Phon e Number [address] (ABNORMAL) pro-Brain Natriuretic Peptide (10/07/2017 8:48 AM EDT) athologist Signature ProBNP 1,170 (H) <=125 [facility] pg/mL [facility] Specimen Anatomical Collection Method Collection Time Receive d Time (Source) Location / / Volume Laterality Blood specimen 10/07/2017 8:48 AM 018 8:50 (specimen) EDT AM EDT Resulting Agency Comment Spec In Lab Danette A Hans QUINONES CHEMISTRY ORDERABLES Performing Organization Address City/State/[place] [address] documented in this encounter Visit Diagnoses Diagnosis Chronic systolic heart failure documented in this encounter Care Teams Cobol Programmer Relationship Specialty Start Date End Date Lovely Vicente MD PCP - General 04/16/[address] [place] [address] documented as of this encounter
--- OUTSIDE RECORDS SUMMARY | 2022-04-01 10:03 | XMS_ITS | Encounter Summary ---
:1945 Author Organization [facility] [place] [address] Care Team Providers Name Role Phone Lovely Vicente MD Primary Care Provider Encounter Details Date Type Department Care Team Description 07/28/2019 Office Visit Cardiology at [facility] Danette Maxwell Chronic systolic heart failu re; [facility] A, STACIE ASHD (arteriosclerotic heart disease); Drive [facility] S/P CABG x 3; [place], [place] MARIA VICTORIA (obstructive sleep apnea) on CPAP; [phone] CARDIOLOGY Mixed hyperlipidemia [phone] [place], [place] [address] Social History Tobacco Use Types [...] in this encounter Progress Notes Danette Maxwell, PLASTIC FINISHER - 07/28/2019 9:40 AM EST Images from [...] abdominal wall ??? Urinary retention ??? MARIA VICTROIA (obstructive sleep apnea) on CPAP ??? Goiter [...] regurgitation present. 07/07/2019 - 07/21/2019 Zio Patch [place] The patient had a minimum heart rate [...] K+ 4.5 today 6. Post-op atrial fibrillation [id number] (CHF, HTN, DM, vascular disease, thromboembolism) [...] advised: Refer to EP (Dr. Mcelroy in [place]) 5. Heart Failure Clinic follow up scheduled for: 3 months with proBNP and BMP Danette Maxwell APRN 07/28/2019 documented in this encounter Plan of Treatment Upcoming Encounters Date Type Specialty Care Team Description 05/28/2022 Appointment Cardiology Zulma Dolan MD [facility] [place], [place] [address] (Wo rk) 05/28/2022 Laboratory Appointment Lab 05/28/2022 Office Visit Cardiology Zulma Dolan MD [facility] [place] [address] Liz Poole PA [facility] [place] [address] 06/10/2022 Office Visit Dermatology Laura Scherer MD [facility] DR [address] [place], [place] 0[address] (Wo rk) documented as of this encounter Results (ABNORMAL) Basic Metabolic Panel (non-fasting) (07/28/2019 8:36 AM EST) P athologist Signature Glucose Lvl 153 65 - 199 [facility] mg/dL [facility] Comment: Diabetes: >=200 mg/dL plus [...] LABORATORY Estimated GFR 70 >=60 mL/min/1.73 m?? [facility] Comment: The eGFR was calculated using the CKD-EP I equation. As with all creatinine based estimates of kidney function, eGFR values calculated with the CKD-EPI equation are not accurate in patients wi th acute kidney failure, extremes of body mass or the acutely ill. http://N(i)²/[facility] Hospitalk eGFR 81 >=60 mL/min/1.73 m?? [facility] Comment: The eGFR was calculated using the CKD-EP I equation. As with all creatinine based estimates of kidney function, eGFR values calculated with the CKD-EPI equation are not accurate in patients wi th acute kidney failure, extremes of body mass or the acutely ill. http://N(i)²/[facility] OK[facility] CITYnkf Specimen Anatomical Collection Method Collection Time Receive d Time (Source) Location / / Volume Laterality Blood specimen 07/28/2019 8:36 AM 020 8:46 (specimen) EST AM EST Resulting Agency Comment Spec In Lab Danette Maxwell APRN CHEMISTRY ORDERABLES Performing Organization Address City/State/ZIP Code Phon e Number [address] (ABNORMAL) pro-Brain Natriuretic Peptide (07/28/2019 8:36 AM EST) athologist Signature ProBNP 647 (H) <=125 pg/mL [facility] Specimen Anatomical Collection Method Collection Time Receive d Time (Source) Location / / Volume Laterality Blood specimen 07/28/2019 8:36 AM 020 8:46 (specimen) EST AM EST Resulting Agency Comment Spec In Lab Danette Maxwell APRN CHEMISTRY ORDERABLES Performing Organization Address City/[facility]/[place] [address] documented in this encounter Visit Diagnoses Diagnosis Chronic systolic heart failure ASHD (arteriosclerotic heart disease) Coronary atherosclerosis of unspecified type of vessel, apache or graft S/P CABG x 3 Postsurgical aortocoronary bypass status MARIA VICTORIA (obstructive sleep apnea) on CPAP Obstructive sleep apnea (adult) (pediatr ic) Mixed hyperlipidemia documented in this encounter Care Teams Fagoting Machine Operator Relationship Specialty Start Date End Date Lovely Vicente MD PCP - General 04/16/[address] [place] [address] documented as of this encounter
--- OUTSIDE RECORDS SUMMARY | 2022-04-01 10:03 | XMS_ITS | Encounter Summary ---
:1945 Author Organization [facility] [place] [address] Care Team Providers Name Role Phone Lovely Vicente MD Primary Care Provider Encounter Details Date Type Department Care Team Description 04/18/2018 Laboratory Appointment Lab 3L [facility] [place] [phone] Social History Tobacco Use Types Packs/Day Years [...] Dolan MD [facility] er [place], [place] [address] (Wo rk) 05/28/2022 Laboratory Appointment Lab 05/28/2022 Office Visit Cardiology Zulma Dolan MD [facility] [place] [address] Liz Poole PA [facility] [place] [address] 06/10/2022 Office Visit Dermatology Laura Scherer MD [facility] ER DR [address] [place], [place] [address] (Wo rk) documented as of [...] Signature Total Protein 7.6 6.1 - 8.0 [facility] gm/dL [facility] Albumin 4.0 3.2 - 5.2 [facility] gm/dL [facility] AST 36 0 - 39 [facility] unit/L [facility] ALT 27 0 - 55 [facility] unit/L [facility] Alk Phos 96 40 - 120 [facility] unit/L [facility] Total 0.7 0.2 - 1.3 [place] Agency Spotter Bilirubin mg/dL [facility] Bili, Direct 0.1 0.0 - 0.3 [facility] mg/dL [facility] Specimen Anatomical Collection Method Collection Time Receive d Time (Source) Location / / Volume Laterality Blood specimen Venous Draw / 04/18/2018 9:19 AM 2017 9:44 (specimen) Unknown EDT AM EDT Resulting Agency Comment Spec In Lab Danette Maxwell APRN CHEMISTRY ORDERABLES Performing Organization Address City/State/Z[place] [address] TSH (04/18/2018 9:19 AM EDT) athologist Signature TSH 1.77 0.27 - 4.20 [facility] mlU/ML [facility] Specimen Anatomical Collection Method Collection Time Receive d Time (Source) Location / / Volume Laterality Blood specimen Venous Draw / 04/18/2018 9:19 AM 2017 9:44 (specimen) Unknown EDT AM EDT Resulting Agency Comment Spec In Lab Danette Maxwell APRN CHEMISTRY ORDERABLES Performing Organization Address City/State/[place] [address] (ABNORMAL) Basic Metabolic Panel (non-fasting) (04/18/2018 9:19 AM EDT) athologist Signature Glucose Lvl 167 65 - 199 [facility] mg/dL [facility] Comment: Diabetes: >=200 mg/dL plus symp toms BUN 18 10 - 20 mg/dL [facility] Creatinine 1.19 0.80 - 1.50 mg/dL [facility] Sodium 147 (H) 135 - 145 mmol/L [facility] Estimated GFR 61 >=60 mL/min/1.73 m?? [facility] Comment: The eGFR was calculated using the CKD-EP I equation. As with all creatinine based estimates of kidney function, eGFR values calculated with the CKD-EPI equation are not accurate in patients wi th acute kidney failure, extremes of body mass or the acutely ill. http://[employer]/DHMCnkf eGFR 70 >=60 mL/min/1.73 m?? [facility] Comment: The eGFR was calculated using the CKD-EP I equation. As with all creatinine based estimates of kidney function, eGFR values calculated with the CKD-EPI equation are not accurate in patients wi th acute kidney failure, extremes of body mass or the acutely ill. http://[employer]/DHnkf Specimen Anatomical Collection Method Collection Time Receive d Time (Source) Location / / Volume Laterality Blood specimen 04/18/2018 9:19 AM 018 9:34 (specimen) EDT AM EDT Resulting Agency Comment Spec In Lab Danette Maxwell APRN CHEMISTRY ORDERABLES Performing Organization Address City/[facility]/[place] [address] (ABNORMAL) pro-Brain Natriuretic Peptide (04/18/2018 9:19 AM EDT) P athologist Signature ProBNP 2,199 (H) <=125 [facility] pg[facility]mL [facility] Specimen Anatomical Collection Method Collection Time Receive d Time (Source) Location / / Volume Laterality Blood specimen 04/18/2018 9:19 AM 018 9:34 (specimen) EDT AM EDT Resulting Agency Comment Spec In Lab Danette Maxwell APRN CHEMISTRY ORDERABLES Performing Organization Address City/[facility]/[place] [address] documented in this encounter Visit Diagnoses Diagnosis Chronic systolic heart failure documented in this encounter Care Teams Geospatial Specialist Relationship Specialty Start Date End Date Lovely Vicente MD PCP - General 04/16/[address] [place] [address] documented as of this encounter
--- OUTSIDE RECORDS SUMMARY | 2022-04-01 10:03 | XMS_ITS | Encounter Summary ---
:1945 Author Organization [facility] [place] [address] Care Team Providers Name Role Phone Lovely Vicente MD Primary Care Provider Encounter Details Date Type Department Care Team Description 10/05/2017 Unscheduled Cardiology at [facility] RONNIE Sin PATIENT NOT SEEN Encounter [facility] Tamiko Martinez MD [facility] [address] CARDIOLOGY DEPT [phone] [place] [address] Social History Tobacco Use Types Packs/Day Years [...] Zulma Dolan MD [facility] Dr [place], [place] [address] (Wo rk) 05/28/2022 Laboratory Appointment Lab 05/28/2022 Office Visit Cardiology Zulma Dolan MD [facility] [place] [address] Liz Poole PA [facility] [place] [address] 06/10/2022 Office Visit Dermatology Laura Scherer MD [facility] DR [address] [place], [place] 0[address] (Wo rk) documented as of this encounter Visit Diagnoses Diagnosis DH PATIENT NOT SEEN documented in this encounter Care Teams Lead Quality Control Technician Relationship Specialty Start Date End Date Lovely Vicente MD PCP - General 04/16/[address] [place] [address] documented as of this encounter
--- OUTSIDE RECORDS SUMMARY | 2022-04-01 10:03 | XMS_ITS | Encounter Summary ---
:1945 Author Organization [facility] [place] [address] Care Team Providers Name Role Phone Lovely Vicente MD Primary Care Provider Encounter Details Date Type Department Care Team Description 08/26/2018 Transcribe Orders Laboratory Lovely Vicente, Deferred diagnosis [facility] on axis I [address] [address] [place], [place] [phone] [address] Social History Tobacco Use Types Packs/Day Years [...] Dolan MD [facility] Dr [place], [place] [address] (Wo rk) 05/28/2022 Laboratory Appointment Lab 05/28/2022 Office Visit Cardiology Zulma Dolan MD [facility] [place] [address] Liz Poole PA [facility] [place] [address] 06/10/2022 Office Visit Dermatology Laura Scherer MD [facility] DR [address] [place], [place] [address] (Wo rk) documented as of this encounter Visit Diagnoses Diagnosis Deferred diagnosis on axis I Other unknown and unspecified cause of m orbidity or mortality documented in this encounter Care Teams Road Mender Relationship Specialty Start Date End Date Lovely Vicente MD PCP - General 04/16/15 [facility] [address] [place] [address] documented as of this encounter
--- OUTSIDE RECORDS SUMMARY | 2022-04-01 10:03 | XMS_ITS | Encounter Summary ---
:1945 Author Organization [facility] [address] Care Team Providers Name Role Phone Lovely Vicente MD Primary Care Provider Encounter Details Date Type Department Care Team Description 08/15/2018 Office Visit Cardiology at [facility] Danette Maxwell Chronic systolic heart failu re; [facility] A, MUSEUM TECHNICIAN Cardiomyopathy, ischemic; [facility] ASCVD (arteriosclerotic card iovascular disease); [place], [place] Essential hypertension; [phone] CARDIOLOGY MARIA VICTORIA on CPAP [phone] [place], [place] [address] Social History Tobacco Use Types [...] in this encounter Progress Notes Danette Maxwell, MUSEUM TECHNICIAN - 08/15/2018 9:00 AM EST Images [...] K+ 4.6 today 6. Post-op atrial fibrillation [id number] (CHF, HTN, DM, vascular disease, thromboembolism) [...] MD [facility] Dr [address] [address] (Wo rk) 05/28/2022 Laboratory Appointment Lab 05/28/2022 Office Visit Cardiology Zulma Dolan MD [facility] [place] [address] Liz Poole PA [facility] [place] [address] 06/10/2022 Office Visit Dermatology Laura Scherer MD [facility] ER DR [address] [place], [place] [address] (Wo rk) documented as of this encounter Results Lipid Panel (08/15/2018 8:04 AM EST) athologist Signature Chol, Total 75 mg/dL [facility] Comment: Lower Risk: <200 mg/dL Average Risk: 200-239 mg/dL Higher Risk: >gp=415 mg/dL Triglycerides 185 mg/dL [facility] Comment: Average Risk/Lower Risk: <150 mg/dL Borderline High Risk: 150-199 mg/dL High Risk: 200-499 mg/dL Very High Risk: >cp=628 mg/dL HDL 32 mg/dL [facility] Comment: Males: ?? Higher Risk: <40 mg/dL Females: ?? HIgher Risk: <50 mg/dL LDL Cholesterol 6 mg/dL [facility] Comment: Lowest Risk: <100 mg/dL Lower Risk: 100-129 mg/dL Borderline High Risk: 130-159 mg/dL High Risk: 160-189 mg/dL Very High Risk: >xt=159 mg/dL Chol/HDL Ratio 2.3 ratio [facility] Lipid Interpretation See Note [facility] Comment: Lipid management should be guided by a p atient? s ASCVD risk, goals and preferences. ACC/AHA Guidelines recommend high intens ity statin if clinical ASCVD or LDL greater than or equal to 190 mg/dL. http://Locationurl.com/KFE-HUL-Tsdnppejg Adults aged 40-75 with LDL 70-189 mg/dL should have their 10 year ASCVD risk estimated with the ACC/AHA ASCVD risk es timator http://tools.acc.org/VMLMP-Yogb-Zkkglgoc r/ Statin should be discussed if risk [...] City/State/[place] [address] (ABNORMAL) Basic Metabolic Panel (non-fasting) (08/15/2018 8:04 AM EST) P athologist Signature Glucose Lvl 116 65 - 199 [facility] mg/dL [facility]ORATORY [...] of body mass or the acutely ill. http://[employer]/[facility]nk[facility] eGFR 79 >=60 mL/min/1.73 m?? [facility] Comment: The eGFR was calculated using the CKD-EP I equation. As with all creatinine based estimates of kidney function, eGFR values calculated with the CKD-EPI equation are not accurate in patients wi th acute kidney failure, extremes of body mass or the acutely ill. http://[employer]/[facility]nkf Specimen Anatomical Collection Method Collection Time Receive d Time (Source) Location / / Volume Laterality Blood specimen 08/15/2018 8:04 AM 019 8:20 (specimen) EST AM EST Resulting Agency Comment Spec In Lab Danette Maxwell APRN CHEMISTRY ORDERABLES Performing Organization Address City/State/ZIP Code Phon e Number [address] (ABNORMAL) pro-Brain Natriuretic Peptide (08/15/2018 8:04 AM EST) P athologist Signature ProBNP 1,797 (H) <=125 [facility] pg/mL [facility] Specimen Anatomical Collection Method Collection Time Receive d Time (Source) Location / / Volume Laterality Blood specimen 08/15/2018 8:04 AM 019 8:20 (specimen) EST AM EST Resulting Agency Comment Spec In Lab Danette Maxwell APRN CHEMISTRY ORDERABLES Performing Organization Address City/State/[place] [address] documented in this encounter Visit Diagnoses Diagnosis Chronic systolic heart failure Cardiomyopathy, ischemic Other specified forms of chronic ischemi c heart disease ASCVD (arteriosclerotic cardiovascular d isease) Unspecified cardiovascular disease Essential hypertension Unspecified essential hypertension MARIA VICTORIA on CPAP Obstructive sleep apnea (adult) (pediatr ic) documented in this encounter Care Teams Round Up Ring Hand Relationship Specialty Start Date End Date Lovely Vicente MD PCP - General 04/16/15 [address] [place] [address] documented as of this encounter
--- OUTSIDE RECORDS SUMMARY | 2022-04-01 10:03 | XMS_ITS | Encounter Summary ---
:1945 Author Organization [facility] [place] [address] Care Team Providers Name Role Phone Lovely Vicente MD Primary Care Provider Reason for Visit Reason Onset Date Comments Other 11/11/2017 Please call [facility] Encounter Details Date Type Department Care Team Description 11/11/2017 Telephone Cardiology at [facility] Danette Maxwell, Other (Please call [facility] CUTTER [facility] ) [place] [phone] CARDIOLOGY [place], [place] [address] (Wo rk) Social History Tobacco [...] Dolan MD [facility] [address] [place], [place] [address] (Wo rk) 05/28/2022 Laboratory Appointment Lab 05/28/2022 Office Visit Cardiology Zulma Dolan [place] [address] Liz Poole PA [facility] [place] [address] 06/10/2022 Office Visit Dermatology Laura Scherer MD [facility] DR [address] [place], [place] 0[address] (Wo rk) documented as of this encounter Visit Diagnoses Not on filedocumented in this encounter Care Teams Data Capture Clerk Relationship Specialty Start Date End Date Lovely Vicente MD PCP - General 04/16/15 [facility] [address] [place] [address] documented as of this encounter
--- OUTSIDE RECORDS SUMMARY | 2022-04-01 10:03 | XMS_ITS | Encounter Summary ---
:1945 Author Organization [facility] [place] [address] Care Team Providers Name Role Phone Lovely Vicente MD Primary Care Provider Reason for Referral Diagnostic Test (Routine) - Specialty Diagnoses / Procedures Referred By Contact Refer red To Contact Cardiology Diagnoses Chronic systolic heart failure Danette Maxwell APRN [facility] Non-Inv Card Lab Procedures Echocardiogram Transthoracic(Leb) [facility] [address] [phone] [place] [address] Referral ID Status Reason Start Date Expiration Visits Visits Date Requested Authorized [id number] Specialty 08/15/2018 08/15/2018 1 1 Service Requested Reason for Visit Diagnostic Test (Routine) - Specialty Diagnoses / Procedures Referred By Contact Nawaf owen To Contact Cardiology Diagnoses Chronic systolic heart failure Danette Maxwell APRN [facility] Non-Inv Card Lab Procedures Echocardiogram Transthoracic(Leb) [facility] [place] [address] [place] [address] Referral ID Status Reason Start Date Expiration Visits Visits Date Requested Authorized [id number] Specialty 08/15/2018 08/15/2018 1 1 Service Requested Encounter Details Date Type Department Care Team Description 08/15/2018 Hospital Encounter Non-Invasive Danette Maxwell Chron ic systolic Cardiology Lab Barbara Gomes APRN heart failure [facility] [place] [address] [place] [phone] (Work) [phone] Social History Tobacco Use Types Packs/Day Years [...] Zulma Dolan MD [facility] [place], [place] 0[address] (Wo rk) 05/28/2022 Laboratory Appointment Lab 05/28/2022 Office Visit Cardiology Zulma Dolan MD [facility] [place] [address] Liz Poole PA [facility] [place] [address] 06/10/2022 Office Visit Dermatology Laura Scherer MD [facility] DR [address] [place] [place], [place] [address] [...] Mccollum ? (Age): 1945(73y) Med Rec#: ? [id number] ?Sex: ?M ? Site Loc: ? [facility] ?Ht / Wt: ??172(cm)/81(kg) Pt. Loc: ?Echo Lab ?BSA: ?1.94 Study Date: ?? 08/15/2018 ?Pt. Type: Outpatient Tape: ? Referring: MARY ELLEN Reading: Scott Ortega ([id number]) Electronic Scale Assembler And Tester: Laura Sargent Diagnosis: *Chronic systolic (congestive) [...] E-wave Vmax ?1.2 ?m/sec ? MV deceleration syuw328.4 ? msec ? MV A-wave Vmax ?0.7 [...] ? Mid-Inferior ?Hypokinetic ? Mid-Inferoseptal ?Hypokinetic ? [place]-Septal ? Akinetic ? [place]-Anterior ? Hypokinetic ? [place]-Lateral ?Akinetic ? [place]-Inferior ? Hypokinetic ? [place]-Tip ?Akinetic ? This report has been electronically sign ed by: _ Scott Ortega M.D. ? 08/15/2018 08:17:26 Images reviewed and interpretation ver ied [facility] Cardiac Ultrasound Laboratory Procedure Note Scott Ortega MD - 08/15/2018Format ting of this note might be different from the original. Procedure: Transthoracic Echocardiogram Patient: NATALYA MCBRIDE(Age): [birth year]73y) Med Rec#: [id number] Sex: M Site Loc: [facility] Ht / Wt: 172(cm)/81(kg) Pt. Loc: Echo Lab BSA: 1.94 Study Date: 08/15/2018 Pt. Type: Outpati ent Tape: Referring: MARY ELLEN Reading: Scott Ortega ([id number]) Electronic Scale Assembler And Tester: Laura Sargent Diagnosis: *Chronic systolic (congestive) [...] MV E-wave Vmax 1.2 m/sec MV deceleration [id number] msec MV A-wave Vmax 0.7 m/sec MV [...] Akinetic Mid-Posterolateral Akinetic Mid-Inferior Hypokinetic Mid-Inferoseptal Hypokinetic [place]-Septal Akinetic [place]-Anterior Hypokinetic [place]-Lateral Akinetic [place]-Inferior Hypokinetic [place]-Tip Akinetic This report has been electronically sign ed by: _ Scott Ortega M.D. 08/15/2018 08:17: 26 Images reviewed and interpretation verif ied [facility] Cardiac Ultrasound Laboratory Danette A Hans TECHNICAL DOCUMENTATION SPECIALIST ECHO ORDERABLES documented in this encounter Visit [...] Routine documented in this encounter Care Teams Seafood Farmer Relationship Specialty Start Date End Date Lovely Vicente MD PCP - General 04/16/[address] [place] [address] documented as of this encounter
--- OUTSIDE RECORDS SUMMARY | 2022-04-01 10:03 | XMS_ITS | Encounter Summary ---
:1945 Author Organization [facility] [place] [address] Care Team Providers Name Role Phone Lovely Vicente MD Primary Care Provider Encounter Details Date Type Department Care Team Description 11/29/2017 Office Visit Cardiology at [facility] Annette Maxwell Chronic systolic congestive heart failure; [facility] A, GROUNDMAN/LINEMAN ASCVD (arteriosclerotic cardiovascular d isease); [facility] Cardiomyopathy, ischemic; [place], [place] PAD (peripheral artery disease) [phone] CARDIOLOGY [phone] [place], [place] 0[address] Social History Tobacco Use Types [...] in this encounter Progress Notes Annette Maxwell, GROUNDMAN/LINEMAN - 11/29/2017 9:20 AM EDT ID and [...] 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 [...] using left greater saphenous vein (done at [facility]), debridement of right foot with wound vac [...] 80 10/25/2017: right popliteal-pedal bypass at [facility] ? Plan: 1. A review of the [...] Zulma Dolan MD [facility] [place], [place] [address] (Wo rk) 05/28/2022 Laboratory Appointment Lab 05/28/2022 Office Visit Cardiology Zulma Dolan [place] [address] Liz Poole PA [facility] [place] [address] 06/10/2022 Office Visit Dermatology Laura Scherer MD [facility] DR [address]DERMAT [place], [place] 0[address] (Wo rk) documented as of this encounter Results Arterial Duplex Leg, Unil (11/29/2017 10:32 AM EDT) Component Value Ref Test Analysis Performed At [facility] Range Method Time Signature VB Text Department: Vascular Surgery Lab VASCUBASE Report Patient: [id number] (GREGORY HOANG) CPT: 34119 ICD10: I72.4;I73.9 Referring Physician: ANNETTE MAXWELL ?? [...] Glucose Lvl 217 (H) 65 - 199 [facility] mg/dL [facility] Comment: Diabetes: >=200 mg/dL plus symp toms BUN 26 (H) 10 - 20 mg/dL [facility] Creatinine 0.96 0.80 - 1.50 mg/dL [facility] Sodium 137 135 - 145 mmol/L [facility] Potassium 4.1 3.5 - 5.0 mmol/L [facility] [...] or in patients with acute kidney failure. http://Engrade.[employer] [place]/DHnkdep http://BIG Launcher/DHMCnkf Specimen Anatomical Collection Method Collection Time Receive d Time (Source) Location / / Volume Laterality Blood specimen 11/29/2017 8:22 AM 05/07/2 018 8:29 (specimen) EDT AM EDT Resulting Agency Comment Spec In Lab Annette Maxwell GROUNDMAN/LINEMAN CHEMISTRY ORDERABLES Performing Organization Address City/State/[place] [address] (ABNORMAL) pro-Brain Natriuretic Peptide (11/29/2017 8:22 AM EDT) P athologist Signature ProBNP 1,769 (H) <=125 [facility] pg/mL [facility] Specimen Anatomical Collection Method Collection Time Receive d Time (Source) Location / / Volume Laterality Blood specimen 11/29/2017 8:22 AM 018 8:29 (specimen) EDT AM EDT Resulting Agency Comment Spec In Lab Annette Maxwell GROUNDMAN/LINEMAN CHEMISTRY ORDERABLES Performing Organization Address City/[facility]/[place] [address] documented in this encounter Visit Diagnoses Diagnosis Chronic systolic congestive heart failur e Chronic systolic heart failure ASCVD (arteriosclerotic cardiovascular d isease) Unspecified cardiovascular disease Cardiomyopathy, ischemic Other specified forms of chronic ischemi c heart disease PAD (peripheral artery disease) Peripheral vascular disease, unspecified documented in this encounter Care Teams Special Forces Weapons Sergeant Relationship Specialty Start Date End Date Lovely Vicente MD PCP - General 04/16/[address] [place] [address] documented as of this encounter
--- OUTSIDE RECORDS SUMMARY | 2022-04-01 10:03 | XMS_ITS | Encounter Summary ---
:1945 Author Organization [place] [address] Care Team Providers Name Role Phone Lovely Vicente MD Primary Care Provider Encounter Details Date Type Department Care Team Description 08/26/2017 Hospital Encounter Vascular Lab at [facility], Athero embolism of foot, right; [place], [place] Delayed surgi nusrat wound healing, [place] [phone] Social History Tobacco Use Types Packs/Day Years [...] Dolan MD [facility] Dr [place], [place] [address] (Wo rk) 05/28/2022 Laboratory Appointment Lab 05/28/2022 Office Visit Cardiology Zulma Dolan MD [facility] [place] [address] Liz Poole PA [facility] [place] [address] 06/10/2022 Office Visit Dermatology Laura Scherer MD [facility] DR [address]MAT OLOGY [place], [place] [address] (Wo rk) documented as of [...] Ref Test Analysis Performed At [facility] Range Method Time Signature VB Text Department: Vascular Surgery Lab VASCUBASE Report Patient: [id number] (DON HOANG) CPT: 20702 ICD10: T81.89XA;I75.021 Referring Physician: ELVER BLOOM ?? [...] encounter documented in this encounter Care Teams Jackaroo Relationship Specialty Start Date End Date Lovely Vicente MD PCP - General 04/16/[address] [place] [address] documented as of this encounter
--- OUTSIDE RECORDS SUMMARY | 2022-04-01 10:03 | XMS_ITS | Encounter Summary ---
:1945 Author Organization [facility] [place] [address] Care Team Providers Name Role Phone Lovely Vicente MD Primary Care Provider Encounter Details Date Type Department Care Team Description 11/29/2017 Hospital Encounter Vascular Lab at [facility] PAD (peripheral [facility] RVT artery [facility]) [place] [phone] Social History Tobacco Use Types Packs/Day Years [...] Dolan MD [facility] Dr [place], [place] [address] (Wo rk) 05/28/2022 Laboratory Appointment Lab 05/28/2022 Office Visit Cardiology Zulma Dolan MD [facility] [place] [address] Liz Poole PA [facility] [place] [address] 06/10/2022 Office Visit Dermatology Laura Scherer MD [facility] [address] OLOG[address] [place], [place] [address] (Wo rk) documented as of [...] Department: Vascular Surgery Lab VASCUBASE Report Patient: [id number] (DON HOANG) CPT: 87723 ICD10: I72.4;I73.9 Referring Physician: DANETTE MAXWELL ?? [...] unspecified documented in this encounter Care Teams Advertisement Compositor Relationship Specialty Start Date End Date Lovely Vicente MD PCP - General 04/16/[address] [place], [place] [address]Y [facility] [address] [place] [address] documented as of this encounter
--- OUTSIDE RECORDS SUMMARY | 2022-04-01 10:03 | XMS_ITS | Encounter Summary ---
:1945 Author Organization [facility] [place] [address] Care Team Providers Name Role Phone Lovely Vicente MD Primary Care Provider Encounter Details Date Type Department Care Team Description 01/16/2019 Laboratory Appointment Lab 3L [facility] [place] [phone] Social History Tobacco Use Types Packs/Day Years [...] MD [facility] [place], [place] [address] (Wo rk) 05/28/2022 Laboratory Appointment Lab 05/28/2022 Office Visit Cardiology Zulma Dolan MD [facility] [place] [address] Liz Poole PA [facility] [place] [address] 06/10/2022 Office Visit Dermatology Laura Scherer MD [facility] ER DR [address]DERMAT [place], [place] [address] (Wo rk) documented as of [...] Organization Address City/State/[place] [address] (ABNORMAL) Basic Metabolic Panel (non-fasting) (01/16/2019 7:49 AM EDT) athologist Signature Glucose Lvl 105 65 - 199 [facility] mg/dL [facility] Comment: Diabetes: [...] of body mass or the acutely ill. http://Weblance/Agrivinkf eGFR 79 >=60 mL/min/1.73 m?? [facility] Comment: The eGFR was calculated using the CKD-EP I equation. As with all creatinine based estimates of kidney function, eGFR values calculated with the CKD-EPI equation are not accurate in patients wi th acute kidney failure, extremes of body mass or the acutely ill. http://Weblance/Agrivinkf Specimen Anatomical Collection Method Collection Time Receive d Time (Source) Location / / Volume Laterality Blood specimen 01/16/2019 7:49 AM 019 7:55 (specimen) EDT AM EDT Resulting Agency Comment Spec In Lab Danette Maxwell APRN CHEMISTRY ORDERABLES Performing Organization Address City/State/[place] [address] documented in this encounter Visit Diagnoses Diagnosis Chronic systolic heart failure documented in this encounter Care Teams Digital Associate Media Director Relationship Specialty Start Date End Date Lovely Vicente MD PCP - General 04/16/[address] [place] [address] documented as of this encounter
--- OUTSIDE RECORDS SUMMARY | 2022-04-01 10:03 | XMS_ITS | Encounter Summary ---
:1945 [place] [address] Care Team Providers Name Role Phone Lovely Vicente MD Primary Care Provider Encounter Details Date Type Department Care Team Description 11/29/2017 Hospital Encounter Radiology Library at Estefany Maxwell Pain [facility] ETIQUETTE COACH [facility] [place] [address] CARDIOLOGY [phone] [place], [place] [address] (Wo rk) Social History Tobacco [...] Description 05/28/2022 Appointment Cardiology Zulma Dolan MD [facility] [place], [place] [address] (Wo rk) 05/28/2022 Laboratory Appointment Lab 05/28/2022 Office Visit Cardiology Zulma Dolan MD [facility] [place] [address] Liz Poole PA [facility] [place] [address] 06/10/2022 Office Visit Dermatology Laura Scherer MD [facility] DR [address] [place], [place] [address] (Wo rk) documented as of [...] Organization Address City/State/ZIP Code Phon e Number [place], [place] documented in this encounter Visit Diagnoses Diagnosis Pain Generalized pain documented in this encounter Care Teams Co Founder & Ceo Relationship Specialty Start Date End Date Lovely Vicente MD PCP - General 04/16/[address] [place] [address] documented as of this encounter
--- OUTSIDE RECORDS SUMMARY | 2022-04-01 10:03 | XMS_ITS | Encounter Summary ---
:1945 Author Organization [facility] Address [facility] [place] [address] Care Team Providers Name Role Phone Lovely Vicente MD Primary Care Provider Reason for Referral Diagnostic Test (Routine) - Specialty Diagnoses / Procedures Referred By Contact Refer red To Contact Cardiology Diagnoses Chronic systolic heart failure Danette Maxwell APRN [facility] Non-Inv Card Lab Procedures Echocardiogram Transthoracic(Leb) [facility] [place] [address] [place] [address] Referral ID Status Reason Start Date Expiration Visits Visits Date Requested Authorized [id number] Specialty 08/15/2018 08/15/2018 1 1 Service Requested Encounter Details Date Type Department Care Team Description 04/18/2018 Office Visit Cardiology at [facility] Danette Maxwell Chronic systolic heart failu re; [facility] STACIE Gomes On amiodarone therapy; [facility] Ischemic cardiomyopathy; [place], [place] DR ONOFRE (arteriosclerotic cardiovascular d isease) [address] CARDIOLOGY [phone] [place], [place] [address] Social History Tobacco Use Types Packs/Day Years [...] in this encounter Progress Notes Danette Maxwell, SHIRRING MACHINE OPERATOR - 04/18/2018 10:40 AM EDT ID and [...] 80 10/25/2017: right popliteal-pedal bypass at [facility] ? Plan: 1. A review of [...] Dolan MD [facility] [address] [place], [place] [address] (Wo rk) 05/28/2022 Laboratory Appointment Lab 05/28/2022 Office Visit Cardiology Zulma Dolan MD [facility] [place] [address] Liz Poole PA [facility] [place] [address] 06/10/2022 Office Visit Dermatology Laura Scherer MD [facility] DR [address] [place], [place] 0[address] (Wo rk) documented as of this encounter Results ECHOCARDIOGRAM COMPLETE W CONTRAST (08/15/2018 7:55 AM EST) P athologist Signature EF 35 [facility] Anatomical Region Laterality Modality Other Specimen (Source) Anatomical Location Collection Method / Collectio n Time Received Time / Laterality Volume 08/15/2018 Narrative 08/15/2018 8:18 AM EST Procedure: ?Transthoracic Echocardiogram Patient: ?NATALYA Mccollum ? (Age): 1945(73y) Med Rec#: ? [id number] ?Sex: ?M ? Site Loc: ? [facility] ?Ht / Wt: ??172(cm)/81(kg) Pt. Loc: ?Echo Lab ?BSA: ?1.94 Study Date: ?? 08/15/2018 ?Pt. Type: Outpatient Tape: ? Referring: MARY ELLEN Reading: Scott Ortega ([id number]) Ceramic Artist: Laura Sargent Diagnosis: *Chronic systolic (congestive) heart [...] E-wave Vmax ?1.2 ?m/sec ? MV deceleration sqjl722.4 ? msec ? MV A-wave Vmax ?0.7 [...] Akinetic ? [place]-Anterior ? Hypokinetic ? [place]-Lateral ?Akinetic ? [place]-Inferior ? Hypokinetic ? [place]-Tip ?Akinetic ? This report has been electronically sign ed by: _ Scott Ortega M.D. ? 08/15/2018 08:17:26 Images reviewed and interpretation verif ied [facility] Cardiac Ultrasound Laboratory Procedure Note Scott Ortega MD - 08/15/2018Format ting of this note might be different from the original. Procedure: Transthoracic Echocardiogram Patient: NATALYA MCBRIDE(Age): [birth year]73y) Med Rec#: [id number] Sex: M Site Loc: [facility] Ht / Wt: 172(cm)/81(kg) Pt. Loc: Echo Lab BSA: 1.94 Study Date: 08/15/2018 Pt. Type: Outpati ent Tape: Referring: MARY ELLEN Reading: Scott Ortega ([id number]) Ceramic Artist: Laura Sargent Diagnosis: *Chronic systolic (congestive) heart [...] MV E-wave Vmax 1.2 m/sec MV deceleration vafw134.4 msec MV A-wave Vmax 0.7 m/sec MV [...] Akinetic Mid-Posterolateral Akinetic Mid-Inferior Hypokinetic Mid-Inferoseptal Hypokinetic [place]-Septal Akinetic [place]-Anterior Hypokinetic [place]-Lateral Akinetic [place]-Inferior Hypokinetic [place]-Tip Akinetic This report has been electronically sign ed by: _ Scott Ortega M.D. 08/15/2018 08:17: 26 Images reviewed and interpretation verif ied [facility] Cardiac Ultrasound Laboratory Danette Maxwell APRN ECHO ORDERABLES (ABNORMAL) Basic Metabolic Panel (non-fasting) (04/18/2018 9:19 AM EDT) P athologist Signature Glucose Lvl 167 65 - 199 [facility] mg/dL [facility] Comment: Diabetes: >=200 mg/dL plus symp toms BUN 18 10 - 20 mg/dL [facility] Creatinine 1.19 0.80 - 1.50 mg/dL [facility] Sodium 147 (H) 135 - 145 mmol/L [facility] Anion Gap 23 (H) 5 - 15 mmol/L [facility] Calcium 9.3 8.5 - 10.5 mg/dL [facility] Estimated GFR 61 >=60 mL/min/1.73 m?? [facility] Comment: The eGFR was calculated using the CKD-EP I equation. As with all creatinine based estimates of kidney function, eGFR values calculated with the CKD-EPI equation are not accurate in patients wi th acute kidney failure, extremes of body mass or the acutely ill. http://Vtrim/[facility]f eGFR 70 >=60 mL/min/1.73 m?? [facility] Comment: The eGFR was calculated using the CKD-EP I equation. As with all creatinine based estimates of kidney function, eGFR values calculated with the CKD-EPI equation are not accurate in patients wi th acute kidney failure, extremes of body mass or the acutely ill. http://Vtrim/[facility] CITY[facility]f Specimen Anatomical Collection Method Collection Time Receive d Time (Source) Location / / Volume Laterality Blood specimen 04/18/2018 9:19 AM 018 9:34 (specimen) EDT AM EDT Resulting Agency Comment Spec In Lab Danette Maxwell APRN CHEMISTRY ORDERABLES Performing Organization Address City/State/Z[place] [address] (ABNORMAL) pro-Brain Natriuretic Peptide (04/18/2018 9:19 AM EDT) P athologist Signature ProBNP 2,199 (H) <=125 [facility] pg[facility]mL [facility] Specimen Anatomical Collection Method Collection Time Receive d Time (Source) Location / / Volume Laterality Blood specimen 04/18/2018 9:19 AM 018 9:34 (specimen) EDT AM EDT Resulting Agency Comment Spec In Lab Danette Maxwell APRN CHEMISTRY ORDERABLES Performing Organization Address City/State/Z[place] [address] documented in this encounter Visit Diagnoses Diagnosis Chronic systolic heart failure On amiodarone therapy Ischemic cardiomyopathy Other specified forms of chronic ischemi c heart disease ASCVD (arteriosclerotic cardiovascular d isease) Unspecified cardiovascular disease Chronic systolic heart failure documented in this encounter Care Teams Parks Recreation Director Relationship Specialty Start Date End Date Lovely Vicente MD PCP - General 04/16/[address] [place] [address] documented as of this encounter
--- OUTSIDE RECORDS SUMMARY | 2022-04-01 10:03 | XMS_ITS | Encounter Summary ---
:1945 [place] [address] Care Team Providers Name Role Phone Lovely Vicente MD Primary Care Provider Encounter Details Date Type Department Care Team Description 07/12/2019 Office Visit Dermatology at [facility], Rigoberto Yarbrough (actinic keratosis); MD SHAY Quick III (seborrheic keratosis); [address] [facility] Multiple benign nevi; [place] [address] History of melanoma [phone] [facility] [place], [place] [address] Social History Tobacco Use [...] Dolan MD [facility] [address] [place], [place] [address] (Wo rk) 05/28/2022 Laboratory Appointment Lab 05/28/2022 Office Visit Cardiology Zulma Dolan MD [facility] [place] [address] Liz Poole PA [facility] [place] [address] 06/10/2022 Office Visit Dermatology Laura Scherer MD [facility] [address] [place], [place] [address] (Wo rk) documented as of this encounter Visit Diagnoses Diagnosis AK (actinic keratosis) Actinic keratosis [place] (seborrheic keratosis) Other seborrheic keratosis Multiple benign nevi Benign neoplasm of skin, site unspecifie d History of melanoma Personal history of malignant melanoma o f skin documented in this encounter Care Teams Turf Manager Relationship Specialty Start Date End Date Lovely Vicente MD PCP - General 04/16/15 [facility] [address] [place] [address] documented as of this encounter
--- OUTSIDE RECORDS SUMMARY | 2022-04-01 10:03 | XMS_ITS | Encounter Summary ---
:1945 Author Organization [facility] [place] [address] Care Team Providers Name Role Phone Lovely Vicente MD Primary Care Provider Encounter Details Date Type Department Care Team Description 08/30/2017 [facility] ischemia [facility] [address] [place] VASCULAR SURGERY [address] [place] [address] [phone] Social History Tobacco Use Types Packs/Day Years [...] Smith MD - 08/30/2017 2:00 PM EST [facility] staff: Patient returns. He is [...] Dolan MD [facility] Dr [place], [place] [address] (Wo rk) 05/28/2022 Laboratory Appointment Lab 05/28/2022 Office Visit Cardiology Zulma Dolan MD [facility] [place] [address] Liz Poole PA [facility] [place] [address] 06/10/2022 Office Visit Dermatology Laura Scherer MD [facility] DR TEJA GR-DERMAT OLOGY [place], [place] [address] (Wo rk) documented as of this encounter Visit Diagnoses Diagnosis Critical lower limb ischemia Unspecified circulatory system disorder documented in this encounter Care Teams Conservation Or Heritage Architect Relationship Specialty Start Date End Date Lovely Vicente MD PCP - General 04/16/[address] [place] [address] documented as of this encounter
--- OUTSIDE RECORDS SUMMARY | 2022-04-01 10:03 | XMS_ITS | Encounter Summary ---
:1945 Author Organization [facility] [place] [address] Care Team Providers Name Role Phone Lovely Vicente MD Primary Care Provider Reason for Referral Consultation (Routine) - Specialty Diagnoses / Procedures Referred By Contact Refer red To Contact W[facility]aling [facility] Diagnoses Atheroembolism of foot, right Delayed surgical wound healing, subsequent encounter Aurelia Rivera PA [address] [facility] [place] [address] Referral ID Status Reason Start Date Expiration Date Visits V isits Requested Authorized [id number] Consult, 09/08/2017 03/07/2018 1 1 Test & Treat Reason for Visit Reason Comments Wound Check My foot hurts Encounter Details Date Type Department Care Team Description 09/07/2017 Office Visit Vascular Surgery at MiguelAurelia PA Atheroembolism of foot, right; [facility] [address] [facility] Delayed surgical wound healing, subseque nt encounter [facility] [place] [address] [phone] Social History Tobacco Use Types Packs/Day Years [...] at home for VAC dressing changes from [facility]. Since his last visit his right forefoot wound [facility] [...] 0.31) performed by Yuan Retana MD at [facility] [...] Cardiology Zulma Dolan MD [facility] [place], [place] [address] (Wo rk) 05/28/2022 Laboratory Appointment Lab 05/28/2022 Office Visit Cardiology Zulma Dolan MD [facility] [place] [address] Liz Poole PA [facility] [place] [address] 06/10/2022 Office Visit Dermatology Laura Scherer MD [facility] DR TEJA GR-DERMAT [place], [place] [address] (Wo rk) Scheduled Referrals Name Type Priority Associated Diagnoses Order S chedule Referral to Wound Outpatient Referral Routine Atheroembolism o f foot, Ordered: Clinic right 09/08/2017 Delayed surgical wound healing, subsequent encounter documented as of this encounter Visit Diagnoses Diagnosis Atheroembolism of foot, right Delayed surgical wound healing, subseque nt encounter documented in this encounter Care Teams Manager Sports Relationship Specialty Start Date End Date Lovely Vicente MD PCP - General 04/16/[address] [facility] 1 [place] [address] documented as of this encounter
--- OUTSIDE RECORDS SUMMARY | 2022-04-01 10:03 | XMS_ITS | Encounter Summary ---
:1945 Author Organization [facility] [place] [address] Care Team Providers Name Role Phone Lovely Vicente MD Primary Care Provider Encounter Details Date Type Department Care Team Description 09/06/2017 Orders Only Vascular Surgery at [facility] Ninfa Clark, [facility] [place] [address] Social History Tobacco Use Types Packs/Day [...] MD [facility] er [place], [place] [address] (Wo rk) 05/28/2022 Laboratory Appointment Lab 05/28/2022 Office Visit Cardiology Zulma Dolan MD [facility] [place] [address] Liz Poole PA [facility] [place] [address] 06/10/2022 Office Visit Dermatology Laura Scherer MD [facility] DR TEJA GR-DERMAT [place], [place] [address] (Wo rk) documented as of this encounter Visit Diagnoses Not on filedocumented in this encounter Care Teams Irradiated Fuel Handler Relationship Specialty Start Date End Date Lovely Vicente MD PCP - General 04/16/[address] [place] [address] documented as of this encounter
--- OUTSIDE RECORDS SUMMARY | 2022-04-01 10:03 | XMS_ITS | Encounter Summary ---
:1945 Author Organization [facility] [place] [address] Care Team Providers Name Role Phone Lovely Vicente MD Primary Care Provider Encounter Details Date Type Department Care Team Description 09/07/2017 Office Visit Endocrinology at [facility] Maria Ines [facility] MD [place] [address] CENTER [phone] ENDOCRINOLOGY DEPT [place], [place] [address] Social History [...] Description 05/28/2022 Appointment Cardiology Zulma Dolan MD [facility] er Dr [place], [place] [address] (Wo rk) 05/28/2022 Laboratory Appointment Lab 05/28/2022 Office Visit Cardiology Zulma Dolan MD [facility] [place] [address] Liz Poole PA [facility] [place] [address] 06/10/2022 Office Visit Dermatology Laura Scherer MD [facility] ER DR TEJA GR-DERMAT [place], [place] [address] (Wo rk) documented as of this encounter Visit Diagnoses Diagnosis Hx of papillary thyroid carcinoma Personal history of malignant neoplasm o f thyroid documented in this encounter Care Teams Cordage Sales Representative Relationship Specialty Start Date End Date Lovely Vicente MD PCP - General 04/16/15 [facility] [address] [place] [address] documented as of this encounter
--- OUTSIDE RECORDS SUMMARY | 2022-04-01 10:04 | XMS_ITS | Encounter Summary ---
:1945 Author Organization [facility] [place] [address] Care Team Providers Name Role Phone Lovely Vicente MD Primary Care Provider Reason for Visit Reason Comments Follow-up Encounter Details Date Type Department Care Team Description 08/19/2017 Office Visit Cardiac Surgery at [facility], Jock S/P C ABG (coronary [facility], artery bypass graft) [facility] [place] CARDIOTHORACIC [address] SURGERY [phone] [place], [place] [address] Social History Tobacco Use Types [...] - 08/19/2017 10:40 AM EST To: MD Lvoely Steven MD Re: Don Fatima ( 1945) [...] office. Best personal regards, Yuan Retana MD [phone] documented in this encounter Plan of Treatment Upcoming Encounters Date Type Specialty Care Team Description 05/28/2022 Appointment Cardiology Zulma Dolan MD [facility] er Dr [place] MD 0[address] (Wo rk) 05/28/2022 Laboratory Appointment Lab 05/28/2022 Office Visit Cardiology Zulma Dolan MD [facility] [place] [address] Liz Poole PA [facility] [place] [address] 06/10/2022 Office Visit Dermatology Laura Scherer MD [facility] ER DR TEJA GR-DERMAT [place] [address] (Wo rk) documented as of this encounter [...] 454 ms MUSE SYSTEM (Bezet) Calculated P [place] 20 degrees MUSE SYSTEM Calculated R [place] -29 degrees MUSE SYSTEM Calculated T [place] 121 degrees MUSE SYSTEM INTERPRETATION Normal sinus rhythm MUSE SYSTEM Inferior infarct (cited on or before 25-JAN-2013) Anterior 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) T wave abnormality, consider lateral ischemia Abnormal ECG When compared with ECG of 06-AUG-2017 12:37, No signif icant change was found Confirmed by MD Luci, Taurus Braun ([id number]) on 08/19/2017 1 0:37:38 PM Specimen Anatomical [...] status documented in this encounter Care Teams Ironworker Apprentice Relationship Specialty Start Date End Date Lovely Vicente MD PCP - General 04/16/[address] [place] [address] documented as of this encounter
--- OUTSIDE RECORDS SUMMARY | 2022-04-01 10:04 | XMS_ITS | Encounter Summary ---
:1945 Author Organization [employer] [place] [address] Care Team Providers Name Role Phone Lovely Vicente MD Primary Care Provider Encounter Details Date Type Department Care Team Description 08/19/2017 Hospital Encounter XRay at [facility] Martha Teague, S/P CABG x [address] [facility] [place] [address] [place] [address] RD [phone] [facility]IC[facility] [place], [place] [address] (Wo rk) Social History [...] MD [facility] [place], [place] [address] (Wo rk) 05/28/2022 Laboratory Appointment Lab 05/28/2022 Office Visit Cardiology Zulma Dolan MD [facility] [place] [address] Liz Poole PA [facility] [place] [address] 06/10/2022 Office Visit Dermatology Laura Scherer MD [facility] DR TEJA RG-DERMAT OLOGY [place], [place] [address] (Wo rk) documented as of [...] 2017 EXAMINATION: XR CHEST PA AND LATERAL (VizimaxIC) CLINICAL HISTORY: CABG x 3 TECHNIQUE: PA [...] status documented in this encounter Care Teams Shellac Polisher Relationship Specialty Start Date End Date Lovely Vicente MD PCP - General 04/16/[address] [place], [place] [address]Y [facility] 1 [place] [address] documented as of this encounter
--- OUTSIDE RECORDS SUMMARY | 2022-04-01 10:04 | XMS_ITS | Encounter Summary ---
:1945 Author Organization [facility] [place] [address] Care Team Providers Name Role Phone Lovely Vicente MD Primary Care Provider Reason for Referral Diagnostic Test (Routine) - Closed Specialty Diagnoses / Procedures Referred By Contact Refer red To Contact Cardiology Diagnoses Ischemic cardiomyopathy Acute on chronic systolic congestive heart failure Danette Maxwell APRN [facility] Non-Inv Card Lab Procedures Echocardiogram Transthoracic(Leb) [facility] [place] [address] [place] [address] Referral ID Status Reason Start Date Expiration Date Visits V isits Requested Authorized [id number] Closed Specialty 08/30/2017 08/30/2018 1 1 Service Requested Encounter Details Date Type Department Care Team Description 08/26/2017 Office Visit Cardiology at [facility] Danette Maxwell Ischemic cardiomyopathy; [facility] STCAIE Gomes Acute on chronic systolic congestive hea rt failure ; Drive [facility] ASCVD (arteriosclerotic card iovascular disease); [place], [place] PAF (paroxysmal atrial fibrillation); [address] CARDIOLOGY PAD (peripheral artery disease) [phone] [place], [place] [address] Social History Tobacco Use Types Packs/Day Years [...] painful and swollen right foot 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 [...] Zulma Dolan MD [facility] [place], [place] [address] (Wo rk) 05/28/2022 Laboratory Appointment Lab 05/28/2022 Office Visit Cardiology Zulma Dolan MD [facility] [place] [address] Lzi Poole PA [facility] [place] [address] 06/10/2022 Office Visit Dermatology Laura Scherer MD [facility] DR TEJA GR-DERMAT OLOGY [place], [place] [address] (Wo rk) documented as of this encounter Results ECHOCARDIOGRAM COMPLETE W CONTRAST (10/07/2017 10:23 AM EDT) athologist Signature EF 45 [facility]ART[facility] SYSTEM Anatomical Region Laterality Modality Other Specimen (Source) Anatomical Location Collection Method / Collectio n Time Received Time / Laterality Volume 10/07/2017 Narrative 10/07/2017 11:13 AM EDT Procedure: ?Transthoracic Echocardiogram Patient: ?NATALYA Mccollum ? (Age): 1945(72y) Med Rec#: ? [id number] ?Sex: ?M ? Site Loc: ? [facility] ?Ht / Wt: ??173(cm)/82(kg) Pt. Loc: ?Echo Lab ?BSA: ?1.96 Study Date: ?? 10/07/2017 ?Pt. Type: Outpatient Tape: ? Referring: Danette Maxwell Reading: Iker Cuevas ([id number]) Airfield Operations Specialist: Yonathan Bocanegra Diagnosis: *ICD-10-PCS Ischemic cardiomyopathy [...] E-wave Vmax ?1.2 ?m/sec ? MV deceleration [id number] ?msec ? MV A-wave Vmax ?1 ?m/sec [...] ? Mid-Inferior ?Hypokinetic ? Mid-Inferoseptal ?Hypokinetic ? [place]-Septal ? Akinetic ? [place]-Anterior ? Hypokinetic ? [place]-Lateral ?Hypokinetic ? [place]-Inferior ? Hypokinetic ? [place]-Tip ?Akinetic ? This report has been electronically sign ed by: _ Iker Cuevas M.D. ? 10/07/2017 11:12:34 Images reviewed and interpretation [facility] Cardiac Ultrasound Laboratory Procedure Note Iker Cuevas MD - 10/07/2017Formatti ng of this note might be different from the original. Procedure: Transthoracic Echocardiogram Patient: NATALYA Mccollum (Age): [birth year]72y) Med Rec#: [id number] Sex: M Site Loc: [facility] Ht / Wt: 173(cm)/82(kg) Pt. Loc: Echo Lab BSA: 1.96 Study Date: 10/07/2017 Pt. Type: Outpati ent Tape: Referring: Danette Maxwell Reading: Iker Cuevas ([id number]) Airfield Operations Specialist: Yonathan Bocanegra Diagnosis: *ICD-10-PCS Ischemic cardiomyopathy [...] MV E-wave Vmax 1.2 m/sec MV deceleration [id number] msec MV A-wave Vmax 1 m/sec MV [...] Akinetic Mid-Posterolateral Hypokinetic Mid-Inferior Hypokinetic Mid-Inferoseptal Hypokinetic [place]-Septal Akinetic [place]-Anterior Hypokinetic [place]-Lateral Hypokinetic [place]-Inferior Hypokinetic [place]-Tip Akinetic This report has been electronically sign ed by: _ Iker Cuevas M.D. 10/07/2017 11:12 :34 Images reviewed and interpretation [facility] Cardiac Ultrasound Laboratory Danette Maxwell APRN ECHO ORDERABLES Basic Metabolic Panel (non-fasting) (08/26/2017 2:00 PM EST) P athologist Signature Glucose Lvl 98 65 - 199 [facility] mg/dL [facility] LABORATORY [...] or in patients with acute kidney failure. http://oLyfe/DHnkdep http://oLyfe/DHMCnkf Specimen Anatomical Collection Method Collection Time Receive d Time (Source) Location / / Volume Laterality Blood specimen 08/26/2017 2:00 PM 018 2:15 (specimen) EST PM EST Resulting Agency Comment Spec In Lab Danette Maxwell APRN CHEMISTRY ORDERABLES Performing Organization Address City/State/ZIP Code Phon e Number [address] (ABNORMAL) pro-Brain Natriuretic Peptide (08/26/2017 2:00 PM EST) P athologist Signature ProBNP 2,373 (H) <=125 [facility] RYAN pg/mL [facility] LABORATORY Specimen Anatomical Collection Method Collection Time Receive d Time (Source) Location / / Volume Laterality Blood specimen 08/26/2017 2:00 PM 018 2:15 (specimen) EST PM EST Resulting Agency Comment Spec In Lab Danette Maxwell APRN CHEMISTRY ORDERABLES Performing Organization Address City/State/[place] [address] documented in this encounter [...] failure documented in this encounter Care Teams Char Filter Operator Relationship Specialty Start Date End Date Lovely Vicente MD PCP - General 04/16/15 [address] [facility] [place] [address] documented as of this encounter
--- OUTSIDE RECORDS SUMMARY | 2022-04-01 10:04 | XMS_ITS | Encounter Summary ---
:1945 Author Organization [facility] [place] [address] Care Team Providers Name Role Phone Lovely Vicente MD Primary Care Provider Reason for Visit Reason Comments Follow-up I'm having trouble with the VAC Encounter Details Date Type Department Care Team Description 08/26/2017 Office Visit Vascular Surgery at [facility] STEPHANIE Mercado Atheroembolism of foot, right; [facility] [address] Delayed surgical wound healing, initial encounter; [facility] VASCULAR SURG YEHUDA Acute on chronic systolic congestive hea rt failure ; [place], [place]schem[place] [address] [phone] Social History Tobacco Use Types Packs/Day Years [...] and into the care of the [facility]. However, since discharge from [facility] he has had some difficulty with continuation [...] [facility] MAIN OR ??? PRO AMPUTATION FOOT, TRANSMETATARSAL Right 08/09/2017 AMPUTATION, TRANSMETATARSAL (WRVU 12.71) performed by Yonathan Smith MD at [facility] MAIN OR ??? PRO CABG, ARTERIAL, SINGLE N/A 07/07/2017 @CABG, USING ARTERIAL GRAFT;SINGLE ARTERIAL GRAFT (WRVU 33.75) performed by Yuan Retana MD at [facility] MAIN OR ??? PRO CABG, ARTERY-VEIN, TWO N/A 07/07/2017 @CABG, TWO VENOUS GRAFTS & ARTERIAL GRAFT (WRVU 7.93) performed by Yuan Retana MD at [facility] MAIN OR ??? PRO COLONOSCOPY, REMV LESN, SNARE 01/16/2014 COLONOSCOPY, POLYPECTOMY, REMOVAL LESION BY SNARE performed by Nohemi Jaimes MD at [facility] ENDOSCOPY ??? PRO DRESSING CHANGE UNDER ANESTHESIA Right 08/11/2017 (MSURG) DRESSING CHANGE (FOR OTHER THAN IVAN) UNDER ANES. (WRVU 0.86) performed by Lamar Smith MD at [facility] MAIN OR ??? PRO ENDOSCOPY W/VIDEO-ASST VEIN HARVEST, CABG Right 07/07/2017 ENDOSCOPIC HARVEST VEIN(S) FOR CABG (WRVU 0.31) performed by Yuan Retana MD at [facility] MAIN OR ??? PRO THYROIDECTOMY 03/28/2013 THYROIDECTOMY, TOTAL OR COMPLETE performed by Manny Mcknight MD at [facility] MAIN OR Social Hx: Social [...] Zulma Dolan MD [facility] [place], [place] [address] (Wo rk) 05/28/2022 Laboratory Appointment Lab 05/28/2022 Office Visit Cardiology Zulma Dolan MD [facility] [place] [address] Liz Poole PA [facility] [place] [address] 06/10/2022 Office Visit Dermatology Laura Scherer MD [facility] [address]-DERMAT [place], [place] [address] (Wo rk) documented as of [...] Test Analysis Performed At [facility] Range Method Time Signature VB Text Department: Vascular Surgery Lab VASCUBASE Report Patient: [id number] (GREGORY FATIMA) CPT: 83947 ICD10: T81.89XA;I75.021 Referring Physician: ARIK CLEMENT ?? [...] Signature Glucose Lvl 98 65 - 199 [facility] mg/dL [facility] LABORATORY Comment: Diabetes: >=200 mg/dL plus symp toms BUN 20 10 - 20 mg/dL [facility] LABOR[facility]ORY Creatinine 1.17 0.80 - [...] 15 mmol/L [facility] LABOR[facility] Calcium 9.1 8.5 - 10.5 mg/dL [facility] LABORATORY Estimated GFR >60 >=60 [facility] LABOR[facility] Comment: The reported eGFR should be multiplied b y 1.2 for patients. The MDRD is not an appropriate measure o f renal function for patients with body mass extremes or in patients with acute kidney failure. http://Curious Sense/DHnkdep http://Curious Sense/DHMCnkf Specimen Anatomical Collection Method Collection Time Receive d Time (Source) Location / / Volume Laterality Blood specimen 08/26/2017 2:00 PM 018 2:15 (specimen) EST PM EST Resulting Agency Comment Spec In Lab Danette Maxwell COMMUNITY DIETITIAN CHEMISTRY ORDERABLES Performing Organization Address City/[facility]/ZIP Code Phon e Number [address] (ABNORMAL) pro-Brain Natriuretic Peptide (08/26/2017 2:00 PM EST) P athologist Signature ProBNP 2,373 (H) <=125 [facility] pg/mL [facility] LABORATORY Specimen Anatomical Collection Method Collection Time Receive d Time (Source) Location / / Volume Laterality Blood specimen 08/26/2017 2:00 PM 018 2:15 (specimen) EST PM EST Resulting Agency Comment Spec In Lab Danette A [place] STACIE CHEMISTRY ORDERABLES Performing Organization Address City/[facility] [place] [address] documented in this encounter Visit Diagnoses Diagnosis Atheroembolism of foot, right Delayed surgical wound healing, initial encounter Acute on chronic systolic congestive hea rt failure Acute on chronic systolic heart failure Ischemic cardiomyopathy Other specified forms of chronic ischemi c heart disease documented in this encounter Care Teams Block Feeder Relationship Specialty Start Date End Date Lovely Vicente MD PCP - General 04/16/[address] [place] [address] documented as of this encounter
--- OUTSIDE RECORDS SUMMARY | 2022-04-01 10:04 | XMS_ITS | Encounter Summary ---
:1945 Author Organization [facility] [place] [address] Care Team Providers Name Role Phone Lovely Vicente MD Primary Care Provider Encounter Details Date Type Department Care Team Description 08/25/2017 Telephone Pain Management at [place], [place] [address] Social History Tobacco Use Types Packs/Day [...] Management Center Preauthorization Request Patient: Don Fatima [id number] Fax received from [employer] denying prior authorization for Lidocaine Patches prescribed by Barbra Soares APRN. RX insurance plan: [employer] RX insurance telephone: [phone] Patient Diagnosis: right foot pain secondary to PVD and ischemia ? Previous medications attempted: Tylenol, Tramadol, Dilaudid Authorization/Reference number: [id number] _x_ denied, provider and patient informed _x_ appeal initiated by provider, patient informed Angeles Rodrigez, RN documented in this encounter Plan of Treatment Upcoming Encounters Date Type Specialty Care Team Description 05/28/2022 Appointment Cardiology Zulma Dolan MD [facility] [place], [place] [address] (Wo rk) 05/28/2022 Laboratory Appointment Lab 05/28/2022 Office Visit Cardiology Zulma Dolan MD [facility] [place] [address] Liz Poole PA [facility] [place] [address] 06/10/2022 Office Visit Dermatology Laura Scherer MD [facility] [address] [place], [place] [address] (Wo rk) documented as of this encounter Visit Diagnoses Not on filedocumented in this encounter Care Teams Pit Hand Relationship Specialty Start Date End Date Lovely Vicente MD PCP - General 04/16/[address] [place] [address] documented as of this encounter
--- OUTSIDE RECORDS SUMMARY | 2022-04-01 10:04 | XMS_ITS | Encounter Summary ---
:1945 Author Organization [facility] [place] [address] Care Team Providers Name Role Phone Lovely Vicente MD Primary Care Provider Encounter Details Date Type Department Care Team Description 08/19/2017 Office Visit V[facility] Surgery at [place], PAD (peripheral artery [facility] TRANSPORTATION DRIVER disease) [facility] [place] [id number] [place] [address] [phone] Social History Tobacco Use Types Packs/Day Years [...] Zulma Dolan MD [facility] [place], [place] [address] (Wo rk) 05/28/2022 Laboratory Appointment Lab 05/28/2022 Office Visit Cardiology Zulma Dolan MD [facility] [place] [address] [facility] [place] [address] 06/10/2022 Office Visit Dermatology Laura Scherer MD [facility] [address] [place], [place] [address] (Wo rk) documented as of this encounter Visit Diagnoses Diagnosis PAD (peripheral artery disease) Peripheral vascular disease, unspecified documented in this encounter Care Teams Pole Inspector Relationship Specialty Start Date End Date Lovely Vicente MD PCP - General 04/16/[address] [place] [address] documented as of this encounter
--- OUTSIDE RECORDS SUMMARY | 2022-04-01 10:04 | XMS_ITS | Encounter Summary ---
:1945 [place] [address] Care Team Providers Name Role Phone Lovely Vicente MD Primary Care Provider Reason for Visit Auth/Cert Specialty Diagnoses / Procedures Referred By Contact Refer red To Contact Diagnoses Critical lower limb ischemia CELLULITIS RT FOOT Procedures EMERGENCY Referral ID Status Reason Start Date Expiration Date Visits Requ ested Visits Authorized [id number] 1 1 Encounter Details Date Type Department Care Team Description 08/06/2017 - Hospital Encounter 5 Yonathan Oneill lower limb ischemia; 08/16/2017 Su Flores MD Ischemic foot Hospital [facility] DR Siddiqui [place] [phone] Social History Tobacco Use Types Packs/Day Years [...] 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 Patient [...] Dorsalis Pedis (Ankle) Artery ?132 ? 0.94 ??Rich-Biphasic ? Posterior Tibial (Ankle) Artery ??154 ? 1.10 ??Rich-Biphasic ? Fourth Toe ? 67 ?0.48 ?? [...] For any problems or questions please call [phone] ZELDA Smith, inpatient coder Nurse Clinician For issues on weeknights after 5pm and weekends please call [phone] and ask for the Vascular Fellow marketing consultant. General Instructions None Future Appointments and Orders Future Appointments Provider Department Dept Phone 08/26/2017 4:00 PM Aurelia Rivera PA Vascular Surgery at [place] [phone] 09/07/2017 3:00 PM LAB, THREE L Lab 3L [facility] [phone] 09/07/2017 4:00 PM Luz Prescott MD Endocrinology at [place] [phone] 09/09/2017 8:00 AM Barbra Soares APRN Pain Management [facility] [place] [phone] Please bring a list of your current [...] For any problems or questions please call [phone] ZELDA Smith, inpatient coder Nurse Clinician For issues on weeknights after 5pm and weekends please call [phone] and ask for the Vascular Fellow marketing consultant. documented in this encounter Medications at [...] Patient Destination: [facility] ([facility]) [address] [place] [address] Transportation: with (at bedside) Time of Discharge: by 12 noon Level of Care: swing Patient Aware: yes Family Notified: yes Md to call report to: Yissel Quintero DOCTOR OF NURSING PRACTICE already called RN to call report to: [phone] Shirin Wolf Office of Care Management Pager [phone] Shirin Wolf RN - 08/16/2017 10:50 AM EST [facility] has offered pt swing bed. Pt and accept bed. will transport via car. DOCTOR OF NURSING PRACTICE Yissel Quintero aware; d/c paperwork will be completed by 12 noon. [facility] requests pt arrival by 1400 today; DOCTOR OF NURSING PRACTICE, RN, and family aware. DOCTOR OF NURSING PRACTICE called [facility] and was told that they prefer pt to arrive with wound vac dressing applied but clamped. DOCTOR OF NURSING PRACTICE applied new wound vac dressing. RN has [facility] number to call report. PASSR completed; DOCTOR OF NURSING PRACTICE paged to request provider signature in highlighted space. Indigo from [facility] notified via email that home wound vac now cancelled; [facility] has picked up from room and order cancelled. Packet started and provided to community arts worker. Medicare important message explained to patient, patient signed. Copy provided to patient and signature page to OCM for inclusion in pt EMR. Radha Georges - 08/16/2017 10:34 AM EST Office of Care Management/Polyethylene Combiner Patient Name: Gregory Hoang : 1945 Patient has been offered a swing bed at [facility]. The patient will be transported by private transportation. No MD to MD report necessary Please call Nursing Report to [phone], ask for blender. Info to accompany patient: Narcotic Prescriptions Copies of Medication Administration Records and IV sheets for past 10 days. Plan: Polyethylene Combiner will be available to the patient and Section 8 Property Manager-RN and/or Woods Warden for further assistance. Patient will be discharged to: [place] [id number] Radha Powers, Polyethylene Combiner Mira Black, VAMSI - 08/15/2017 10:05 PM EST [address] Flores to ask if he wanted to hold metoprolol dose. BP 95/58. OK to hold this dose Courtney Brito - 08/15/2017 3:26 PM EST Office of Care Management(OCM)/Polyethylene Combiner(RS)/ D/C Planning re : Patient is medically [...] status. 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 . Contacted by direct care RN, who said that patient and would like information about patient's referral to: [facility] PHONE: [phone] FAX: [phone] CM spoke with RS who said that [...] rehab. Await recommendations from PT. Covering pager #[phone]. 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 Champion Of Sustainable Design Kaitlin Saha, RN Pager #[phone] Payam Rosales - 08/13/2017 2:37 PM EST Field Services Director Encounter Note Patient Name: Gregory Hoang : [id number] MR#: [id number] Admit Date: 08/06/2017 1:41 PM Hospital Day 7 days Narrative: Visited to introduce and assess acceptance of Field Services Director services. Pt was awake, alert, oriented and in chair and family was there. Assessment:Patient coping positively with stresses of illness/hospitalization at this time. Pt says that he is hoping to get better and his family was there. Pt says that he has family care and supportand taking one day at time. Intervention and Outcome: Provided emotional support and encouraging presence. 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 A letter describing our affiliations was reviewed with them and theywere educated about their right to choose where referrals are placed. Patient requests referral to [facility] [employer]. PHONE: [phone] FAX: [phone]. And Home NPWT (Negative Pressure Wound Therapy) aka wound vac device made available to pt. Serial # confirmed. Reviewed [facility] Proof of Delivery/Assignment of Benefits Statement(POD/AOB) Form w patient or authorized agent signing on behalf of patient. Copy of POD/AOB provided to pt and other copy faxed to [employer] @ fax# [phone] Expected date of discharge: 08/12/2017. 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 Address: [address] [place] [address] [place] [address] (home) Mobile: Telephone Information: Referring Provider: No [...] 33.75) performed by Yuan Retana MD at [facility] MAIN OR ??? PRO CABG, ARTERY-VEIN, TWO N/A 07/07/2017 @CABG, TWO VENOUS GRAFTS & ARTERIAL GRAFT (WRVU 7.93) performed by Yuan Retana MD at [facility] MAIN OR ??? PRO COLONOSCOPY, REMV LESN, SNARE 01/16/2014 COLONOSCOPY, POLYPECTOMY, REMOVAL LESION BY SNARE performed by Nohemi Jaimes MD at [facility] ENDOSCOPY ??? PRO ENDOSCOPY W/VIDEO-ASST VEIN HARVEST, CABG Right 07/07/2017 ENDOSCOPIC HARVEST VEIN(S) FOR CABG (WRVU 0.31) performed by Yuan Retana MD at [facility] MAIN OR ??? 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 Heparin gtt continues to run. [...] of : 1945 AGE 72 y.o. Address: [address] [place] [address] [place] [address] (home) Mobile: Telephone Information: Referring Provider: No [...] 33.75) performed by Yuan Retana MD at [facility] MAIN OR ??? PRO CABG, ARTERY-VEIN, TWO N/A 07/07/2017 @CABG, TWO VENOUS GRAFTS & ARTERIAL GRAFT (WRVU 7.93) performed by Yuan Retana MD at [facility] MAIN OR ??? PRO COLONOSCOPY, REMV LESN, SNARE 01/16/2014 COLONOSCOPY, POLYPECTOMY, REMOVAL LESION BY SNARE performed by Nohemi Jaimes MD at [facility] ENDOSCOPY ??? PRO ENDOSCOPY W/VIDEO-ASST VEIN HARVEST, CABG Right 07/07/2017 ENDOSCOPIC HARVEST VEIN(S) FOR CABG (WRVU 0.31) performed by Yuan Retana MD at [facility] MAIN OR ??? 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 Vascular resident marketing consultant and will forward result to the team prior to rounds. 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 Patient [...] 33.75) performed by Yuan Retana MD at [facility] MAIN OR ??? PRO CABG, ARTERY-VEIN, TWO N/A 07/07/2017 @CABG, TWO VENOUS GRAFTS & ARTERIAL GRAFT (WRVU 7.93) performed by Yuan Retana MD at [facility] MAIN OR ??? PRO COLONOSCOPY, REMV LESN, SNARE 01/16/2014 COLONOSCOPY, POLYPECTOMY, REMOVAL LESION BY SNARE performed by Nohemi Jaimes MD at [facility] ENDOSCOPY ??? PRO ENDOSCOPY W/VIDEO-ASST VEIN HARVEST, CABG Right 07/07/2017 ENDOSCOPIC HARVEST VEIN(S) FOR CABG (WRVU 0.31) performed by Yuan Retana MD at [facility] MAIN OR ??? PRO THYROIDECTOMY 03/28/2013 THYROIDECTOMY, TOTAL OR COMPLETE performed by Manny Mcknight MD at [facility] MAIN OR Functional Status/Social Hx: [...] left blue toes with CTA showing R BROOMMAKER pseudoaneurysm (now thrombosed) and occluded ATs bilaterally. [...] 2.5x80 5. Completion RLE angiogram 6. L BROOMMAKER angiogram 7. 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 - L BROOMMAKER angriogram demonstrated: High femoral bifurcation over the proximal half of the femoral head. L BROOMMAKER access in the distal L BROOMMAKER. - Closure device: Mynx Technical Procedure: The [...] for a 45cm 5F Destination. V18 and Huxley and QuickCross catheters were used to select [...] 5F. A stationed picture of the L BROOMMAKER was performed as the patient was noted to have a very high bifurcation. Access appeared in the distal R BROOMMAKER. Closure and sheath removal was performed with [...] PM EST 1440 report called to 5 [place] nurse Tessa AGUSTIN documented in this encounter [...] sit/sit to supine -- Bed Mobility Goal, Mckinley Level independent -- Bed Mobility Goal, Date [...] days -- Transfer Training Goal, Activity Type dou-em-seuqg/fpvcv-te-fyb -- Transfer Train Goal, Mckinley Level conditional independence -- Transfer Train Goal, [...] Operative Note Patient Name: Gregory Hoang : [id number] MR#: [id number] Case Date: 08/09/2017 Surgeon: Surgeon(s) and Role: [...] 2.5x80 5. Completion RLE angiogram 6. L BROOMMAKER angiogram 7. Mynx closure Precautions/Restrictions: fall, sternal [...] other (see comments) (or swing bed) Pager: [phone] BASSAM ELIAS, PT 08/14/2017 Inpatient Physical Therapy [...] to Achieve by discharge Gait Training Goal, Mckinley Level conditional independence;set up required Gait Training [...] Their choices are: 1- [facility] PHONE: [phone] FAX: [phone] 2- [facility] ([facility]) [address] [place] [address] 3- [facility])([facility]) [address] [place] [address] I have discussed Medicare/Private Insurance [...] RS/CM on Wednesday to follow-up. Covering pager #[phone] for today. Plan of Care - Henrique [...] with additional findings of pseudoaneurysm on R BROOMMAKER and bilateral anterior tibial artery occlusions. Was [...] an outpatient once discharged. Have patient call [phone] to set up an appointment. Follow-up: Dermatology will sign-off for now. Please do not hesitate to contact us if you have any questions orconcerns. Impression and Recommendations discussed with primary team on 08/13/2017. Karo Henderson MD Resident in Dermatology Section of Dermatology, Department of Surgery [facility] Pager [phone] Patient seen and evaluated with staff Avionic Technician: Halima Cordero MD Section of Dermatology [facility] [...] 2.5x80 5. Completion RLE angiogram 6. L BROOMMAKER angiogram 7. Mynx closure Active Non-Hospital Problems [...] home with home health ([facility] PT&OT) Pager: [phone] YASIR TELLO OT 08/12/2017 Occupational Therapy Rehabilitation [...] 2.5x80 5. Completion RLE angiogram 6. L BROOMMAKER angiogram 7. Mynx closure Past Medical History: [...] with 24/7 assistance and maximal services) Pager: [phone] NICHOLAS MORA, PT 08/12/2017 Physical Therapy Rehabilitation [...] sit/sit to supine -- Bed Mobility Goal, Mckinley Level independent -- Bed Mobility Goal, Outcome Achieved -- goal ongoing Goal: Gait Training Goal Stand Alone Therapy Goal Outcome: Ongoing (Interventions Implemented as Appropriate) 08/11/17 1310 08/12/17 1510 Gait Training Goal Gait Training Goal, Date Established 08/11/17 -- Gait Training Goal, Time to Achieve 5 - 7 days -- Gait Training Goal, Mckinley Level conditional independence -- Gait Training Goal, [...] days -- Transfer Training Goal, Activity Type bke-vh-dkxma/rimta-ix-fml -- Transfer Train Goal, Mckinley Level conditional independence -- Transfer Training Goal, [...] Operative Note Patient Name: Gregory Hoang : [id number] MR#: [id number] Case Date: 08/11/2017 Surgeon: Surgeon(s) and Role: [...] 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 Completion RLE angiogram 6. L BROOMMAKER angiogram 7. Mynx closure He is very [...] Anticipated Discharge Disposition: inpatient rehabilitation facility Pager: [phone] LAWRENCE GONZALEZ, PT 08/11/2017 Physical Therapy Rehabilitation [...] to sit/sit to supine Bed Mobility Goal, Mckinley Level independent Goal: Gait Training Goal Stand Alone Therapy Goal Outcome: Ongoing (Interventions Implemented as Appropriate) 08/11/17 1310 Gait Training Goal Gait Training Goal, Date Established 08/11/17 Gait Training Goal, Time to Achieve 5 - 7 days Gait Training Goal, Mckinley Level conditional independence Gait Training Goal, Assist [...] 7 days Transfer Training Goal, Activity Type tvp-sd-yvzhz/jzthi-nl-jvp Transfer Train Goal, Mckinley Level conditional independence Plan of [facility] Annetta Sandoval RN - 08/11/2017 7:21 [...] Advance Care Planning: on file Kisha Hoang [facility] [phone] Current Coping/Education/Information Needs: pt and spouse state [...] Health/Prescription Coverage: Primary Insurance: MEDICARE Secondary Insurance: [employer] [facility] Prescription Coverage: See above Preferred Pharmacy: [id number] Other: N/A Primary Care Provider: Lovely Vicente MD [phone] Patient/Caregiver Goals of Treatment: Patient plans to [...] of care planning. Kaitlin Saha RN Pager: [phone] Plan of Care - Melba Jaramillo RN [...] Overview Goal: Plan of Care Review 08/08/17 8534 Coping/Psychosocial Plan Of Care Reviewed With patient [...] at bedside and MD TEAM Carrying pager [phone] contacted (via Radio page) and notified of [...] Cardiology Zulma Dolan MD [facility] [place], [place] [address] (Wo rk) 05/28/2022 Laboratory Appointment Lab 05/28/2022 Office Visit Cardiology Zulma Dolan MD [facility] [place] [address] Liz Poole PA [facility] Cardiology [place] [address] 06/10/2022 Office Visit Dermatology Laura Scherer MD [facility] [address] [place], [place] [address] (Wo rk) documented as [...] Signature POC Glucose 160 65 - 199 [facility] mg/dL [facility] LABORATORY [...] Organization Address City/State/[place] [address] (ABNORMAL) Differential, Automated (08/16/2017 5:08 AM EST) [facility] Method Time Signature Neutrophils % 73.9 % [facility] LABORATORY Neutr Abs (ANC) 5.37 1.70 - [facility] 6.10 [facility] x10(3)/[facility] LABORATORY Lymphocytes % 10.1 % [facility] LABORATORY Lymphocytes Abs 0.7 (L) 0.9 - 3.2 [facility] x10(3)/[facility] LABORATORY Monocytes % 10.1 % [facility] LABORATORY Monocyte Abs 0.7 0.3 - 0.9 [facility] x10(3)/[facility] LABORATORY Eosinophils % 5.1 % [facility] LABORATORY Eosinophils Abs 0.4 0.0 - 0.4 [facility] x10(3)/[facility] LABORATORY Basophils % 0.4 % [facility] LABORATORY Basophils Abs 0.0 0.0 - 0.1 [facility] x10(3)/[facility] LABORATORY Immature Gran [...] Gran Abs 0.03 0.00 - 0.04 x10(3)/[facility] Y [facility] LABORATORY Specimen Anatomical Collection Method Collection Time Receive d Time (Source) Location / / Volume Laterality Blood specimen 08/16/2017 5:08 AM 018 5:20 (specimen) EST AM EST Resulting Agency Comment Spec In Lab Yonathan Smith MD HEMATOLOGY ORDERABLES Performing Organization Address City/State/[place] [address] (ABNORMAL) Hemogram (08/16/2017 5:08 AM EST) Analysis Performed At Patho logist Time Signature WBC 7.3 4.0 - 9.5 [facility] x10(3)/[facility] LABORATORY RBC 3.36 (L) 4.58 - [facility] 5.54 [facility] x10(6)/[facility] LABORATORY Hemoglobin 9.7 (L) 13.7 [facility] gm/dL [facility] LABORATORY Hematocrit 30.3 (L) 40.5 [facility] 48.5 % [facility] LABORATORY MCV 90.2 82.9 [facility] 93.1 [facility] LABORATORY MCH 28.9 27.5 - [facility] 32.1 pg [facility] LABORATORY MCHC 32.0 32.0 - [facility] 35.7 gm/dL [facility] LABORATORY Platelets 282 145 - 357 [facility] x10(3)/[facility] LABORATORY RDWSD 53.9 (H) 36.0 - [facility] 45.0 [facility] LABORATORY RDWCV 16.5 (H) 11.4 - [facility] SU 13.8 % [facility] LABORATORY MPV 9.0 7.6 - 12.9 [facility] LABORATORY nRBC % Auto 0.0 % [facility] LABORATORY nRBC Abs Auto 0.000 0.000 - [facility] SU 0.000 [facility] x10(3)/[facility] LABORATORY Specimen Anatomical Collection Method Collection Time Receive d Time (Source) Location / / Volume Laterality Blood specimen 08/16/2017 5:08 AM 018 5:20 (specimen) EST AM EST Resulting Agency Comment Spec In Lab Yonathan Smith MD HEMATOLOGY ORDERABLES Performing Organization Address City/State/[place] [address] (ABNORMAL) Basic Metabolic Panel (non-fasting) (08/16/2017 5:08 AM EST) P athologist Signature Glucose Lvl 141 65 - 199 [facility] mg/dL [facility] LABORATORY Comment: Diabetes: >=200 mg/dL plus symp toms BUN 29 (H) 10 - 20 mg/dL [facility] LABORATORY Creatinine 1.25 0.80 [...] mmol/L [facility] LABORATORY Calcium 8.7 8.5 - 10.5 mg/dL [facility] LABORATORY Estimated GFR 57 (L) >=60 [facility] LABORATORY Comment: The reported eGFR should be multiplied b y 1.2 for patients. The MDRD is not an appropriate measure o f renal function for patients with body mass extremes or in patients with acute kidney failure. http://[employer]/DHnkdep http://[employer]/DHMCnkf Specimen Anatomical Collection Method Collection Time Receive d Time (Source) Location / / Volume Laterality Blood specimen 08/16/2017 5:08 AM 018 5:20 (specimen) EST AM EST Resulting Agency Comment Spec In Lab Yonathan Smith MD CHEMISTRY ORDERABLES Performing Organization Address City/State/[place] [address] (ABNORMAL) Prothrombin Time (08/16/2017 [...] Address City/State/ZIP Code Phon e Number [address] POCT Glucose (08/16/2017 4:09 AM EST) athologist Signature POC Glucose 147 65 - [address] [facility] mg/dL [facility] LABORATORY Comment: [...] Organization Address City/State/[place] [address] POCT Glucose (08/15/2017 11:56 PM EST) athologist Signature POC Glucose 176 65 - 199 [facility] SU mg/dL [facility] LABORATORY Comment: [...] Organization Address City/State/[place] [address] POCT Glucose (08/15/2017 8:05 PM EST) athologist Signature POC Glucose 136 65 - 199 [facility] mg/dL [facility] LABORATORY Comment: [...] Organization Address City/State/[place] [address] (ABNORMAL) POCT Glucose (08/15/2017 4:50 PM EST) athologist Signature POC Glucose 232 (H) 65 - 199 [facility] SU mg/dL [facility] LABORATORY Comment: [...] Organization Address City/State/[place] [address] POCT Glucose (08/15/2017 12:04 PM EST) athologist Signature POC Glucose 135 65 - 199 [facility] SU mg/dL [facility] LABORATORY Comment: [...] Organization Address City/State/[place] [address] POCT Glucose (08/15/2017 7:36 AM EST) P athologist Signature POC Glucose 124 65 - 199 [facility] mg/dL [facility] LABORATORY [...] Organization Address City/State/[place] [address] (ABNORMAL) Differential, Automated (08/15/2017 6:22 AM EST) Patholo gist Method Time Signature Neutrophils % 76.1 % [facility] LABORATORY Neutr Abs (ANC) 6.62 (H) 1.70 - [facility] 6.10 [facility] x10(3)/[facility] L LABORATORY Lymphocytes % 9.3 % [facility] LABORATORY Lymphocytes Abs 0.8 (L) 0.9 - 3.2 [facility] x10(3)/[facility] LABORATORY Monocytes % 9.4 % [facility] LABORATORY Monocyte Abs 0.8 0.3 - 0.9 [facility] x10(3)/[facility] LABORATORY Eosinophils % 4.0 % [facility] LABORATORY Eosinophils Abs 0.4 0.0 - 0.4 [facility] x10(3)/[facility] LABORATORY Basophils % 0.6 % [facility] LABORATORY Basophils Abs 0.0 0.0 - 0.1 [facility] x10(3)/[facility] LABORATORY Immature Gran % 0.60 % [facility]ERSITY [...] Gran Abs 0.05 (H) 0.00 - 0.04 x10(3)/[facility] LABORATORY Specimen Anatomical Collection Method Collection Time Receive d Time (Source) Location / / Volume Laterality Blood specimen 08/15/2017 6:22 AM 018 6:33 (specimen) EST AM EST Resulting Agency Comment Spec In Lab Yonathan Smith MD HEMATOLOGY ORDERABLES Performing Organization Address City/State/[place] [address] (ABNORMAL) Hemogram (08/15/2017 6:22 AM EST) Analysis Performed At Patho logist Time Signature WBC 8.7 4.0 - 9.5 [facility] x10(3)/[facility] LABORATORY RBC 3.21 (L) 4.58 - [facility] 5.54 [facility] x10(6)/[facility] LABORATORY Hemoglobin 9.1 (L) 13.7 - [facility] 16.5 gm/dL [facility] LABORATORY Hematocrit 29.0 (L) 40.5 - [facility] 48.5 % [facility] LABORATORY MCV 90.3 82.[address] [facility]1 [facility] LABORATORY MCH 28.3 27.5 - [facility] 32.1 pg [facility] LABORATORY MCHC 31.4 (L) 32.0 - [facility]m/dL [facility] LABORATORY Platelets 254 145 - 357 [facility] x10(3)/[facility] LABORATORY RDWSD 53.9 (H) 36.0 - [facility] SU 45.0 [facility] LABORATORY RDWCV 16.3 (H) 11.4 - [facility] SU 13.8 % [facility] LABORATORY MPV 8.8 7.6 - 12.9 [facility] LABORATORY nRBC % Auto 0.0 % [facility] LABORATORY nRBC Abs Auto 0.000 0.000 - [facility] SU 0.000 [facility] x10(3)/[facility] LABORATORY Specimen Anatomical Collection Method Collection Time Receive d Time (Source) Location / / Volume Laterality Blood specimen 08/15/2017 6:22 AM 018 6:33 (specimen) EST AM EST Resulting Agency Comment Spec In Lab Yonathan Smith MD HEMATOLOGY ORDERABLES Performing Organization Address City/[facility]/[place] [address] (ABNORMAL) Basic Metabolic Panel (non-fasting) (08/15/2017 6:22 AM EST) athologist Signature Glucose Lvl 118 65 - 199 [facility] mg/dL [facility] LABORATORY [...] MEDICAL CENTER LABORATORY Estimated GFR >60 >=60 [facility] LABORATORY Comment: The reported eGFR should be multiplied b y 1.2 for patients. The MDRD is not an appropriate measure o f renal function for patients with body mass extremes or in patients with acute kidney failure. http://[employer]/DHnkdep http://[employer]/DHMCnkf Specimen Anatomical Collection Method Collection Time Receive d Time (Source) Location / / Volume Laterality Blood specimen 08/15/2017 6:22 AM 018 6:33 (specimen) EST AM EST Resulting Agency Comment Spec In Lab Yonathan Smith MD CHEMISTRY ORDERABLES Performing Organization Address City/[facility]/[place] [address] (ABNORMAL) Prothrombin Time (08/15/2017 [...] Organization Address City/State/[place] [address] POCT Glucose (08/15/2017 4:33 AM EST) athologist Signature POC Glucose 164 65 - 199 [facility] mg/dL [facility] LABORATORY Comment: [...] Organization Address City/State/[place] [address] POCT Glucose (08/15/2017 12:12 AM EST) athologist Signature POC Glucose 89 65 - 199 [facility] mg/dL [facility] LABORATORY Comment: [...] Organization Address City/State/[place] [address] (ABNORMAL) POCT Glucose (08/14/2017 8:07 PM EST) athologist Signature POC Glucose 204 (H) 65 - 199 [facility] mg/dL [facility] LABORATORY Comment: [...] Organization Address City/State/[place] [address] POCT Glucose (08/14/2017 5:11 PM EST) athologist Signature POC Glucose 174 65 - 199 [place] [facility] mg/dL [facility] LABORATORY Comment: [...] Organization Address City/State/[place] [address] POCT Glucose (08/14/2017 12:10 PM EST) athologist Signature POC Glucose 141 65 - 199 [facility] mg/dL [facility] LABORATORY Comment: [...] Address City/State/ZIP Code Phon e Number [address] POCT Glucose (08/14/2017 8:07 AM EST) P athologist Signature POC Glucose 158 65 - 199 [facility] mg/dL [facility] LABORATORY [...] Organization Address City/State/[place] [address] (ABNORMAL) Differential, Automated (08/14/2017 4:52 AM EST) Patholo gist Method Time Signature Neutrophils % 78.6 % [facility] LABORATORY Neutr Abs (ANC) 7.70 (H) 1.70 - [facility] 6.10 [facility] x10(3)/[facility] L LABORATORY Lymphocytes % 7.8 % [facility] LABORATORY Lymphocytes Abs 0.8 (L) 0.9 - 3.2 [facility] x10(3)/[facility] LABORATORY Monocytes % 8.8 % [facility] LABORATORY Monocyte Abs 0.9 0.3 - 0.9 [facility] x10(3)/[facility] LABORATORY Eosinophils % 4.0 % [facility] LABORATORY Eosinophils Abs 0.4 0.0 - 0.4 [facility] x10(3)/[facility] LABORATORY Basophils % 0.5 % [facility] LABORATORY Basophils Abs 0.0 0.0 - 0.1 [facility] x10(3)/[facility] LABORATORY Immature Gran % 0.30 [...] - 0.04 x10(3)/[facility] LABORATORY Specimen Anatomical Collection Method Collection Time Receive d Time (Source) Location / / Volume Laterality Blood specimen 08/14/2017 4:52 AM 018 5:08 (specimen) EST AM EST Resulting Agency Comment Spec In Lab Yonathan Smith MD HEMATOLOGY ORDERABLES Performing Organization Address City/State/[place] [address] (ABNORMAL) Hemogram (08/14/2017 4:52 AM EST) Analysis Performed At Patho logist Time Signature WBC 9.8 (H) 4.0 - 9.5 [facility] x10(3)/[facility] LABORATORY RBC 3.32 (L) 4.58 - [facility] 5.54 [facility] x10(6)/[facility] LABORATORY Hemoglobin 9.5 (L) 13.7 [facility]m/dL [facility] LABORATORY Hematocrit 30.3 (L) 40.5 - [facility] SU 48.5 % [facility] LABORATORY MCV 91.3 82.9 - [facility] SU 93.1 [facility] LABORATORY MCH 28.6 27.5 - [place] [facility] 32.1 pg [facility] LABORATORY MCHC 31.4 (L) 32.0 - [facility] SU 35.7 gm/dL [facility] LABORATORY Platelets 263 145 - 357 [facility] x[facility](3[facility] LABORATORY RDWSD 54.8 (H) 36.0 - [facility] SU 45.0 [facility] RDWCV 16.5 (H) 11.4 - [facility] SU 13.8 % [facility] LABORATORY MPV 9.1 7.6 - 12.9 [facility] LABORATORY nRBC % Auto 0.0 % [facility] LABORATORY nRBC Abs Auto 0.000 0.000 - [facility] 0.000 [facility] x10(3)/[facility] LABORATORY Specimen Anatomical Collection Method Collection Time Receive d Time (Source) Location / / Volume Laterality Blood specimen 08/14/2017 4:52 AM 018 5:08 (specimen) EST AM EST Resulting Agency Comment Spec In Lab Yonathan Smith MD HEMATOLOGY ORDERABLES Performing Organization Address City/[facility]/[place] [address] (ABNORMAL) Prothrombin Time (08/14/2017 [...] Organization Address City/State/[place] [address] (ABNORMAL) Basic Metabolic Panel (non-fasting) (08/14/2017 4:52 AM EST) athologist Signature Glucose Lvl 135 65 - 199 [facility] mg/dL [facility] LABORATORY Comment: Diabetes: >=200 mg/dL plus symp toms BUN 25 (H) 10 - 20 mg/dL [facility] LABORATORY Creatinine 1.36 0.80 [...] CENTER LABORATORY Estimated GFR 52 (L) >=60 [facility] LABORATORY Comment: The reported eGFR should be multiplied b y 1.2 for patients. The MDRD is not an appropriate measure o f renal function for patients with body mass extremes or in patients with acute kidney failure. http://[employer]/DHnkdep http://[employer]/DHMCnkf Specimen Anatomical Collection Method Collection Time Receive d Time (Source) Location / / Volume Laterality Blood specimen 08/14/2017 4:52 AM 018 5:08 (specimen) EST AM EST Resulting Agency Comment Spec In Lab Yonathan Smith MD CHEMISTRY ORDERABLES Performing Organization Address City/State/[place] [address] POCT Glucose (08/14/2017 3:56 AM EST) P athologist Signature POC Glucose 135 65 - 199 [facility] mg/dL [facility] LABORATORY [...] Address City/State/ZIP Code [place] [address] POCT Glucose (08/13/2017 11:13 PM EST) athologist Signature POC Glucose 118 65 - 199 [place] mg/dL [facility] LABORATORY Comment: Supplemental ranges: <140 mg/dL before meals <180 mg/dL all other times of the day Specimen Anatomical Collection Method Collection Time Receive d Time (Source) Location / / Volume Laterality Blood specimen 08/13/2017 11:13 8 (specimen) PM EST 11:13 PM EST Yonathan Smith MD POINT OF CARE TEST ORDERABLE S Performing Organization Address City/[facility]/ZIP Code [place] [address] (ABNORMAL) POCT Glucose (08/13/2017 8:08 PM EST) athologist Signature POC Glucose 204 (H) 65 - 199 [place] mg/dL [facility] LABORATORY Comment: Supplemental ranges: <140 mg/dL before meals <180 mg/dL all other times of the day Specimen Anatomical Collection Method Collection Time Receive d Time (Source) Location / / Volume Laterality Blood specimen 08/13/2017 8:08 PM 018 8:08 (specimen) EST PM EST Yonathan Smith MD POINT OF CARE TEST ORDERABLE S Performing Organization Address City/[facility]/ZIP Code [place] [address] POCT Glucose (08/13/2017 4:02 PM EST) athologist Signature POC Glucose 145 65 - 199 [place] [place] mg/dL [facility] LABORATORY Comment: [...] Organization Address City/State/[place] [address] POCT Glucose (08/13/2017 11:31 AM EST) P athologist Signature POC Glucose 179 65 - 199 [facility] mg/dL [facility] LABORATORY Comment: Supplemental ranges: <140 mg/dL before meals <180 mg/dL all other times of the day Specimen Anatomical Collection Method Collection Time Receive d Time (Source) Location / / Volume Laterality Blood specimen 08/13/2017 11:31 8 (specimen) AM EST 11:31 AM EST Yonathan Smith MD POINT OF CARE TEST ORDERABLE S Performing Organization Address City/[facility]/[place] [address] (ABNORMAL) POCT Glucose (08/13/2017 10:16 AM EST) athologist Signature POC Glucose 211 (H) 65 - 199 [facility] mg/dL [facility] LABORATORY Comment: Supplemental ranges: <140 mg/dL before meals <180 mg/dL all other times of the day Specimen Anatomical Collection Method Collection Time Receive d Time (Source) Location / / Volume Laterality Blood specimen 08/13/2017 10:16 8 (specimen) AM EST 10:16 AM EST Yonathan Smith MD POINT OF CARE TEST ORDERABLE S Performing Organization Address City/[facility]/ZIP Code Phon e Number [address] JULIAN, legs, multiple levels (08/13/2017 7:42 AM EST) Component Value Ref Test Analysis Performed At Patholo gist Range Method Time Signature VB Text Department: Vascular Surgery Lab VASCUBASE Report Patient: [id number] (GREGORY HOANG) CPT: 32350 ICD10: I99.8 Referring Physician: YONATHAN SMITH ?? Indications: s/p R 1,2,3 toe amps with red left foot, need n ew baseline Diabetes mellitus: yes ICD10 Diagnosis Code: I99.8 Findings: Right ?Pressure (mm Hg) ?? JULIAN ??Waveform ?TBI ?? Brachial Artery ?138 ? Dorsalis Pedis (Ankle) Arter y ?132 ? 0.94 ??Rich- Biphasic ? Posterior Tibial (Ankle) Art anila ??154 ? 1.10 ??Rich-Biphasic ? Fourth Toe ? 67 ? 0.48 [...] 156 65 - 199 [facility] mg/dL [facility] [...] Organization Address City/State/[place] [address] (ABNORMAL) Differential, Automated (08/13/2017 5:33 AM EST) [facility] Method Time Signature Neutrophils % 77.8 % [facility] LABORATORY Neutr Abs (ANC) 7.83 (H) 1.70 - [facility] 6.10 [facility] x10(3)/[facility] L LABORATORY Lymphocytes % 8.4 % [facility] LABORATORY Lymphocytes Abs 0.8 (L) 0.9 - 3.2 [facility] x10(3)/[facility] LABORATORY Monocytes % 8.3 % [facility] LABORATORY Monocyte Abs 0.8 0.3 - 0.9 [facility] x10(3)/[facility] LABORATORY Eosinophils % 4.6 % [facility] LABORATORY Eosinophils Abs 0.5 (H) 0.0 - 0.4 [facility] x10(3)/[facility] LABORATORY Basophils % 0.5 % [facility] LABORATORY Basophils Abs 0.0 0.0 - 0.1 [facility] x10(3)/[facility] LABORATORY Immature Gran % 0.40 [...] - 0.04 x10(3)/[facility] LABORATORY Specimen Anatomical Collection Method Collection Time Receive d Time (Source) Location / / Volume Laterality Blood specimen 08/13/2017 5:33 AM 018 6:04 (specimen) EST AM EST Resulting Agency Comment Spec In Lab Yonathan Smith MD HEMATOLOGY ORDERABLES Performing Organization Address City/State/ZIP Code Phon e Number [address] (ABNORMAL) Hemogram (08/13/2017 5:33 AM EST) Analysis Performed At Patho logist Time Signature WBC 10.1 (H) 4.0 - 9.5 [facility] x10(3)/[facility] LABORATORY RBC 3.21 (L) 4.58 - [facility] 5.54 [facility] x10(6)/[facility] LABORATORY Hemoglobin 9.2 (L) 13.7 - [facility] 16.5 gm/dL [facility] LABORATORY Hematocrit 29.6 (L) 40.5 - [facility] 48.5 % [facility] LABORATORY MCV 92.2 82.9 - [facility] 93.1 [facility] LABORATORY MCH 28.7 27.5 - [facility] 32.1 pg [facility] LABORATORY MCHC 31.1 (L) 32.0 - [facility] gm/dL [facility] LABORATORY Platelets 263 145 - 357 [facility] x10(3)/[facility] LABORATORY RDWSD 54.8 (H) 36.0 - [facility] 45.0 [facility] LABORATORY RDWCV 16.4 (H) 11.4 - [facility] 13.8 % [facility] LABORATORY MPV 9.2 7.6 - 12.9 [facility] LABORATORY nRBC % Auto 0.0 % [facility] LABORATORY nRBC Abs Auto 0.000 0.000 - [facility] 0.000 [facility] x10(3)/[facility] LABORATORY Specimen Anatomical Collection Method Collection Time Receive d Time (Source) Location / / Volume Laterality Blood specimen 08/13/2017 5:33 AM 018 6:04 (specimen) EST AM EST Resulting Agency Comment Spec In Lab Yonathan Smith MD HEMATOLOGY ORDERABLES Performing Organization Address City/State/[place] [address] (ABNORMAL) Prothrombin Time (08/13/2017 [...] City/State/ZIP Code Phon e Number [place] [id number] (ABNORMAL) Basic Metabolic Panel (non-fasting) (08/13/2017 5:33 AM EST) athologist Signature Glucose Lvl 126 65 - 199 [facility] mg/dL [facility] LABORATORY Comment: Diabetes: >=200 mg/dL plus symp toms BUN 18 10 - 20 mg/dL [facility] LABORATORY Creatinine 1.16 0.80 [...] mmol/L [facility] LABORATORY Calcium 7.9 (L) 8.5 - 10.5 mg/dL [facility] LABORATORY Estimated GFR >60 >=60 [facility] LABORATORY Comment: The reported eGFR should be multiplied b y 1.2 for patients. The MDRD is not an appropriate measure o f renal function for patients with body mass extremes or in patients with acute kidney failure. http://[employer]/DHnkdep http://[employer]/DHMCnkf Specimen Anatomical Collection Method Collection Time Receive d Time (Source) Location / / Volume Laterality Blood specimen 08/13/2017 5:33 AM 018 6:04 (specimen) EST AM EST Resulting Agency Comment Spec In Lab Yonathan Smith MD CHEMISTRY ORDERABLES Performing Organization Address City/[facility]/ZIP [facility] Phon e Number [address] POCT Glucose (08/13/2017 4:29 AM EST) athologist Signature POC Glucose 111 65 - 199 [facility] mg/dL [facility] LABORATORY Comment: Supplemental ranges: <140 mg/dL before meals <180 mg/dL all other times of the day Specimen Anatomical Collection Method Collection Time Receive d Time (Source) Location / / Volume Laterality Blood specimen 08/13/2017 4:29 AM 018 4:29 (specimen) EST AM EST Yonathan Smith MD POINT OF CARE TEST ORDERABLE S Performing Organization Address City/[facility]/ZIP Code Phon e Number [address] POCT Glucose (08/12/2017 11:28 PM EST) athologist Signature POC Glucose 164 65 - [facility] LABORATORY Comment: Supplemental ranges: <140 mg/dL before meals <180 mg/dL all other times of the day Specimen Anatomical Collection Method Collection Time Receive d Time (Source) Location / / Volume Laterality Blood specimen 08/12/2017 11:28 8 (specimen) PM EST 11:28 PM EST Yonathan Smith MD POINT OF CARE TEST ORDERABLE S Performing Organization Address City/[facility]/[place] [address] (ABNORMAL) POCT Glucose (08/12/2017 7:40 PM EST) athologist Signature POC Glucose 209 (H) 65 - 199 [facility] mg/dL [facility] LABORATORY Comment: [...] Address City/State/ZIP Code Phon e Number [address] POCT Glucose (08/12/2017 4:24 PM EST) athologist Signature POC Glucose 161 65 - [address] [facility] LABORATORY Comment: [...] Organization Address City/State/[place] [address] POCT Glucose (08/12/2017 12:00 PM EST) athologist Signature POC Glucose 167 65 - 199 [place] [facility] mg/dL [facility] LABORATORY Comment: [...] Organization Address City/State/[place] [address] POCT Glucose (08/12/2017 7:25 AM EST) P athologist Signature POC Glucose 152 65 - 199 [facility] mg/dL [facility] LABORATORY [...] Organization Address City/State/[place] [address] (ABNORMAL) Differential, Automated (08/12/2017 6:29 AM EST) Patholo gist Method Time Signature Neutrophils % 78.7 % [facility] LABORATORY Neutr Abs (ANC) 7.94 (H) 1.70 - [facility] 6.10 [facility] x10(3)/[facility] LABORATORY Lymphocytes % 8.8 % [facility] LABORATORY Lymphocytes Abs 0.9 0.9 - 3.2 [facility] x10(3)/[facility] LABORATORY Monocytes % 7.8 % [facility] LABORATORY Monocyte Abs 0.8 0.3 - 0.9 [facility] x10(3)/[facility] LABORATORY Eosinophils % 3.9 % [facility] LABORATORY Eosinophils Abs 0.4 0.0 - 0.4 [facility] x10(3)/[facility] LABORATORY Basophils % 0.3 % [facility] LABORATORY Basophils Abs 0.0 0.0 - 0.1 [facility] x10(3)/[facility] LABORATORY Immature Gran % 0.50 % UNIVERSITY [...] Gran Abs 0.05 (H) 0.00 - 0.04 x10(3)/[facility] LABORATORY Specimen Anatomical Collection Method Collection Time Receive d Time (Source) Location / / Volume Laterality Blood specimen 08/12/2017 6:29 AM 018 6:38 (specimen) EST AM EST Resulting Agency Comment Spec In Lab Yonathan Smith MD HEMATOLOGY ORDERABLES Performing Organization Address City/State/[place] [address] (ABNORMAL) Hemogram (08/12/2017 6:29 AM EST) Analysis Performed At Patho logist Time Signature WBC 10.1 (H) 4.0 - 9.5 [facility] x10(3)/[facility] LABORATORY RBC 3.02 (L) 4.58 - [facility] 5.54 [facility] x10(6)/[facility] LABORATORY Hemoglobin 8.7 (L) 13.7 - [facility] 16.5 gm/dL [facility] LABORATORY Hematocrit 28.1 (L) 40.5 - [facility] 48.5 % [facility] LABORATORY MCV 93.0 82.9 - [facility] 93.1 [facility] LABORATORY MCH 28.8 27.5 - [facility] 32.1 pg [facility] LABORATORY MCHC 31.0 (L) 32.0 - [facility] 35.7 gm/dL [facility] LABORATORY Platelets 223 145 - 357 [facility] x10(3)/[facility] LABORATORY RDWSD 56.1 (H) 36.0 - [facility] 45.0 [facility] LABORATORY RDWCV 16.4 (H) 11.4 - [facility] SU 13.8 % [facility] LABORATORY MPV 9.0 7.6 - 12.9 [facility] LABORATORY nRBC % Auto 0.0 % [facility] LABORATORY nRBC Abs Auto 0.000 0.000 - [facility] SU 0.000 [facility] x10(3)/[facility] LABORATORY Specimen Anatomical Collection Method Collection Time Receive d Time (Source) Location / / Volume Laterality Blood specimen 08/12/2017 6:29 AM 018 6:38 (specimen) EST AM EST Resulting Agency Comment Spec In Lab Yonathan Smith MD HEMATOLOGY ORDERABLES Performing Organization Address City/[facility]/[place] [address] (ABNORMAL) Prothrombin Time (08/12/2017 [...] MD HEMATOLOGY ORDERABLES Performing Organization Address City/[facility] [place] [address] (ABNORMAL) Basic Metabolic Panel (non-fasting) (08/12/2017 6:29 AM EST) athologist Signature Glucose Lvl 151 65 - 199 [facility] mg/dL [facility] LABORATORY Comment: Diabetes: >=200 mg/dL plus symp toms BUN 18 10 - 20 mg/dL [facility] LABORATORY Creatinine 1.11 0.80 [...] mmol/L [facility] LABORATORY Calcium 7.9 (L) 8.5 - 10.5 mg/dL [facility] LABORATORY Estimated GFR >60 >=60 [facility] LABORATORY Comment: The reported eGFR should be multiplied b y 1.2 for patients. The MDRD is not an appropriate measure o f renal function for patients with body mass extremes or in patients with acute kidney failure. http://[employer]/DHnkdep http://[employer]/DHMCnkf Specimen Anatomical Collection Method Collection Time Receive d Time (Source) Location / / Volume Laterality Blood specimen 08/12/2017 6:29 AM 018 6:38 (specimen) EST AM EST Resulting Agency Comment Spec In Lab Yonathan Smith MD CHEMISTRY ORDERABLES Performing Organization Address City/[facility]/ZIP Code Phon e Number [address] POCT Glucose (08/12/2017 4:08 AM EST) athologist Signature POC Glucose 181 65 - 199 [facility]dL [facility] LABORATORY Comment: Supplemental ranges: <140 mg/dL before meals <180 mg/dL all other times of the day Specimen Anatomical Collection Method Collection Time Receive d Time (Source) Location / / Volume Laterality Blood specimen 08/12/2017 4:08 AM 018 4:08 (specimen) EST AM EST Yonathan Smith MD POINT OF CARE TEST ORDERABLE S Performing Organization Address City/[facility]/[place] [address] (ABNORMAL) POCT Glucose (08/12/2017 12:17 AM EST) athologist Signature POC Glucose 221 (H) 65 - 199 [facility] LABORATORY Comment: [...] Organization Address City/State/[place] [address] (ABNORMAL) POCT Glucose (08/11/2017 8:52 PM EST) athologist Signature POC Glucose 221 (H) 65 - 199 [facility] mg/dL [facility] LABORATORY Comment: Supplemental ranges: <140 mg/dL before meals <180 mg/dL all other times of the day Specimen Anatomical Collection Method Collection Time Receive d Time (Source) Location / / Volume Laterality Blood specimen 08/11/2017 8:52 PM 018 8:52 (specimen) EST PM EST Yonathan Smith MD POINT OF CARE TEST ORDERABLE S Performing Organization Address City/[facility]/[place] [address] POCT Glucose (08/11/2017 5:59 PM EST) athologist Signature POC Glucose 169 65 - 199 [facility] mg/dL [facility] LABORATORY Comment: [...] Organization Address City/State/[place] [address] (ABNORMAL) POCT Glucose (08/11/2017 4:08 PM EST) athologist Signature POC Glucose 240 (H) 65 - 199 [facility] mg/dL [facility] LABORATORY Comment: [...] Address City/State/ZIP Code Phon e Number [address] POCT Glucose (08/11/2017 12:04 PM EST) athologist Signature POC Glucose 182 65 - [address] [facility] LABORATORY Comment: Supplemental ranges: <140 mg/dL before meals <180 mg/dL all other times of the day Specimen Anatomical Collection Method Collection Time Receive d Time (Source) Location / / Volume Laterality Blood specimen 08/11/2017 12:04 8 (specimen) PM EST 12:04 PM EST Yonathan Smith MD POINT OF CARE TEST ORDERABLE S Performing Organization Address City/[facility]/[place] [address] POCT Glucose (08/11/2017 7:31 AM EST) athologist Signature POC Glucose 156 65 - [address] [facility] LABORATORY Comment: [...] Address City/State/ZIP Code Phon e Number [address] (ABNORMAL) Differential, Automated (08/11/2017 6:16 AM EST) [facility] gist Method Time Signature Neutrophils % 83.7 % [facility] LABORATORY Neutr Abs (ANC) 10.76 (H) 1.70 - [facility] 6.10 [facility] x10(3)/[facility] L LABORATORY Lymphocytes % 6.0 % [facility] LABORATORY Lymphocytes Abs 0.8 (L) 0.9 - 3.2 [facility] x10(3)/[facility] LABORATORY Monocytes % 7.5 % [facility] LABORATORY Monocyte Abs 1.0 (H) 0.3 - 0.9 [facility] x10(3)/[facility] LABORATORY Eosinophils % 2.0 % [facility] LABORATORY Eosinophils Abs 0.3 0.0 - 0.4 [facility] x10(3)/[facility] LABORATORY Basophils % 0.3 % [facility] LABORATORY Basophils Abs 0.0 0.0 - 0.1 [facility] x10(3)/[facility] LABORATORY Immature Gran % 0.50 % UNIVERSITY [...] Organization Address City/State/[place] [address] (ABNORMAL) Hemogram (08/11/2017 6:16 AM EST) Analysis Performed At Patho logist Time Signature WBC 12.9 (H) 4.0 - 9.5 [facility] x10(3)/[facility] LABORATORY RBC 3.28 (L) 4.58 - [facility] 5.54 [facility] x10(6)/[facility] LABORATORY Hemoglobin 9.5 (L) 13.7 - [facility] 16.5 gm/dL [facility] LABORATORY Hematocrit 29.8 (L) 40.5 - [facility] 48.5 % [facility] LABORATORY MCV 90.9 82.9 - [facility] 93.1 [facility] LABORATORY MCH 29.0 27.5 - [place] 32.1 [facility] LABORATORY MCHC 31.9 (L) 32.0 - [place] 35.7 gm/dL [facility] Platelets 236 145 - 357 [facility] x10(3)/[facility] LABORATORY RDWSD 53.5 (H) 36.0 - [facility] 45.0 [facility] LABORATORY RDWCV 16.3 (H) 11.4 - [facility] 13.8 % [facility] LABORATORY MPV 8.8 7.6 - 12.9 [facility] nRBC % Auto 0.0 % [facility] nRBC Abs Auto 0.000 0.000 - [facility] 0.000 [facility] x10(3)/[facility] LABORATORY Specimen Anatomical Collection Method Collection Time Receive d Time (Source) Location / / Volume Laterality Blood specimen 08/11/2017 6:16 AM 018 6:24 (specimen) EST AM EST Resulting Agency Comment Spec In Lab Yonathan Smith MD HEMATOLOGY ORDERABLES Performing Organization Address City/State/ZIP Code Phon e Number [place] [id number] (ABNORMAL) Prothrombin Time (08/11/2017 [...] Organization Address City/State/[place] [address] Basic Metabolic Panel (non-fasting) (08/11/2017 6:16 AM EST) P athologist Signature Glucose Lvl 139 65 - 199 [facility] mg/dL [facility] LABORATORY Comment: Diabetes: >=200 mg/dL plus symp toms BUN 12 10 - 20 mg/dL [facility] LABORATORY Creatinine 0.91 0.80 [...] MEDICAL CENTER LABORATORY Estimated GFR >60 >=60 [facility] LABORATORY Comment: The reported eGFR should be multiplied b y 1.2 for patients. The MDRD is not an appropriate measure o f renal function for patients with body mass extremes or in patients with acute kidney failure. http://[employer]/DHnkdep http://[employer]/DHMCnkf Specimen Anatomical Collection Method Collection Time Receive d Time (Source) Location / / Volume Laterality Blood specimen 08/11/2017 6:16 AM 018 6:24 (specimen) EST AM EST Resulting Agency Comment Spec In Lab Yonathan Smith MD CHEMISTRY ORDERABLES Performing Organization Address City/State/ZIP Code Phon e Number [address] POCT Glucose (08/11/2017 4:07 AM EST) athologist Signature POC Glucose 162 65 - 199 [facility] mg/dL [facility] LABORATORY Comment: Supplemental ranges: <140 mg/dL before meals <180 mg/dL all other times of the day Specimen Anatomical Collection Method Collection Time Receive d Time (Source) Location / / Volume Laterality Blood specimen 08/11/2017 4:07 AM 018 4:07 (specimen) EST AM EST Yonathan Smith MD POINT OF CARE TEST ORDERABLE S Performing Organization Address City/[facility]/ZIP Code Phon e Number [place] [address] POCT Glucose (08/10/2017 11:59 PM EST) athologist Signature POC Glucose 166 65 - 199 [facility] mg/dL [facility] LABORATORY Comment: Supplemental ranges: <140 mg/dL before meals <180 mg/dL all other times of the day Specimen Anatomical Collection Method Collection Time Receive d Time (Source) Location / / Volume Laterality Blood specimen 08/10/2017 11:59 8 (specimen) PM EST 11:59 PM EST Yonathan Smith MD POINT OF CARE TEST ORDERABLE S Performing Organization Address City/[facility]/ZIP Code Phon e Number [place] [address] POCT Glucose (08/10/2017 8:12 PM EST) athologist Signature POC Glucose 156 65 - 199 [facility] mg/dL [facility] LABORATORY Comment: [...] Organization Address City/State/[place] [address] (ABNORMAL) POCT Glucose (08/10/2017 4:42 PM EST) P athologist Signature POC Glucose 211 (H) 65 - 199 [facility]dL [facility] LABORATORY Comment: [...] Address City/State/ZIP Code Phon e Number [address] (ABNORMAL) Differential, Automated (08/10/2017 2:30 PM EST) Patholo gist Method Time Signature Neutrophils % 87.6 % [facility] LABORATORY Neutr Abs (ANC) 9.90 (H) 1.70 - [facility] 6.10 [facility] x10(3)/[facility] L LABORATORY Lymphocytes % 4.3 % [facility] LABORATORY Lymphocytes Abs 0.5 (L) 0.9 - 3.2 [facility] x10(3)/[facility] LABORATORY Monocytes % 6.0 % [facility] LABORATORY Monocyte Abs 0.7 0.3 - 0.9 [facility] x10(3)/[facility] LABORATORY Eosinophils % 1.1 % [facility] LABORATORY Eosinophils Abs 0.1 0.0 - 0.4 [facility] x10(3)/[facility] LABORATORY Basophils % 0.4 % [facility] LABORATORY Basophils Abs 0.0 0.0 - 0.1 [facility] x10(3)/[facility] LABORATORY Immature Gran % 0.60 % UNIVERSITY [...] Organization Address City/State/[place] [address] (ABNORMAL) Hemogram (08/10/2017 2:30 PM EST) Analysis Performed At Patho logist Time Signature WBC 11.3 (H) 4.0 - 9.5 [facility] x10(3)/[facility] LABORATORY RBC 3.13 (L) 4.58 - [facility] SU 5.54 [facility] x10(6)/[facility] LABORATORY Hemoglobin 8.9 (L) 13.7 - [facility] 16.5 gm/dL [facility] LABORATORY Hematocrit 28.4 (L) 40.5 - [facility] 48.5 % [facility] LABORATORY MCV 90.7 82.9 - [facility] 93.1 [facility] LABORATORY MCH 28.4 27.5 - [facility] SU 32.1 pg [facility] LABORATORY MCHC 31.3 (L) 32.0 - [facility] 35.7 gm/dL [facility] LABORATORY Platelets 213 145 - 357 [facility] x10(3)/[facility] LABORATORY RDWSD 53.7 (H) 36.0 - [facility] SU 45.0 [facility] LABORATORY RDWCV 16.4 (H) 11.4 - [facility] SU 13.8 % [facility] LABORATORY MPV 8.9 7.6 - 12.9 [facility] LABORATORY nRBC % Auto 0.0 % [facility] LABORATORY nRBC Abs Auto 0.000 0.000 - [facility] SU 0.000 [facility] x10(3)/[facility] LABORATORY Specimen Anatomical Collection Method Collection Time Receive d Time (Source) Location / / Volume Laterality Blood specimen 08/10/2017 2:30 PM 018 2:48 (specimen) EST PM EST Resulting Agency Comment Spec In Lab Yonathan Smith MD HEMATOLOGY ORDERABLES Performing Organization Address City/State/[place] [address] (ABNORMAL) POCT Glucose (08/10/2017 1:50 PM EST) athologist Signature POC Glucose 243 (H) 65 - [address] [facility] LABORATORY Comment: Supplemental ranges: <140 mg/dL before meals <180 mg/dL all other times of the day Specimen Anatomical Collection Method Collection Time Receive d Time (Source) Location / / Volume Laterality Blood specimen 08/10/2017 1:50 PM 018 1:50 (specimen) EST PM EST Yonathan Smith MD POINT OF CARE TEST ORDERABLE S Performing Organization Address City/[facility]/[place] [address] POCT Glucose (08/10/2017 11:21 AM EST) athologist Signature POC Glucose 156 65 - [address] [facility] LABORATORY Comment: [...] Organization Address City/State/[place] [address] (ABNORMAL) Differential, Automated (08/10/2017 10:28 AM EST) [facility] gist Method Time Signature Neutrophils % 85.3 % [facility] LABORATORY Neutr Abs (ANC) 9.43 (H) 1.70 - [facility] SU 6.10 [facility] x10(3)/[facility] L LABORATORY Lymphocytes % 5.5 % [facility] LABORATORY Lymphocytes Abs 0.6 (L) 0.9 - 3.2 [facility] x10(3)/[facility] LABORATORY Monocytes % 5.9 % [facility] LABORATORY Monocyte Abs 0.6 0.3 - 0.9 [facility] x10(3)/[facility] LABORATORY Eosinophils % 2.1 % [facility] LABORATORY Eosinophils Abs 0.2 0.0 - 0.4 [facility] x10(3)/[facility] LABORATORY Basophils % 0.4 % [facility] LABORATORY Basophils Abs 0.0 0.0 - 0.1 [facility] x10(3)/[facility] LABORATORY Immature Gran % 0.80 % UNIVERSITY [...] Gran Abs 0.09 (H) 0.00 - 0.04 x10(3)/[facility] LABORATORY Specimen Anatomical Collection Method Collection Time Receive d Time (Source) Location / / Volume Laterality Blood specimen 08/10/2017 10:28 8 (specimen) AM EST 10:35 AM EST Resulting Agency Comment Spec In Lab Yonathan Smith MD HEMATOLOGY ORDERABLES Performing Organization Address City/State/[place] [address] (ABNORMAL) Hemogram (08/10/2017 10:28 AM EST) Analysis Performed At Patho logist Time Signature WBC 11.0 (H) 4.0 - 9.5 [facility] x10(3)/[facility] LABORATORY RBC 3.02 (L) 4.58 - [facility] 5.54 [facility] x10(6)/[facility] LABORATORY Hemoglobin 8.8 (L) 13.7 - [facility] 16.5 gm/dL [facility] LABORATORY Hematocrit 28.1 (L) 40.5 - [facility] 48.5 % [facility] LABORATORY MCV 93.0 82.9 - [facility] 93.1 [facility] LABORATORY MCH 29.1 27.5 - [facility] 32.1 pg [facility] LABORATORY MCHC 31.3 (L) 32.0 - [place] 35.7 gm/dL [facility] LABORATORY Platelets 207 145 - 357 [place] x10(3)/[facility] LABORATORY RDWSD 55.3 (H) 36.0 - [facility] 45.0 [facility] LABORATORY RDWCV 16.4 (H) 11.4 - [place] [facility] 13.8 % [facility] LABORATORY MPV 9.0 7.6 - 12.9 [facility] LABORATORY nRBC % Auto 0.0 % [facility] LABORATORY nRBC Abs Auto 0.000 0.000 - [place] 0.000 [facility] x10(3)/[facility] LABORATORY Specimen Anatomical Collection Method Collection Time Receive d Time (Source) Location / / Volume Laterality Blood specimen 08/10/2017 10:28 8 (specimen) AM EST 10:35 AM EST Resulting Agency Comment Spec In Lab Yonathan Smith MD HEMATOLOGY ORDERABLES Performing Organization Address City/State/ZIP Code Phon e Number [place] [id number] VS Angiogram/intervention (vascular) (08/10/2017 [...] 2.5x80 5. Completion RLE angiogram 6. L BROOMMAKER angiogram 7. 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 - L BROOMMAKER angriogram demonstrated: High fe moral bifurcation over the proximal half of the femoral head. L BROOMMAKER access in the distal L BROOMMAKER. - Closure device: Mynx Technical Procedure: ?The [...] for a 45cm 5F Destination. V18 and Huxley a nd QuickCross catheters were used to [...] bifurcation. Access appeared in the distal R BROOMMAKER. Closure and sheath removal was performed with [...] 2.5x80 5. Completion RLE angiogram 6. L BROOMMAKER angiogram 7. 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 - L BROOMMAKER angriogram demonstrated: High fe moral bifurcation over the proximal half of the femoral head. L BROOMMAKER access in the distal L BROOMMAKER. - Closure device: Mynx Technical Procedure: The [...] for a 45cm 5F Destination. V18 and Huxley a nd QuickCross catheters were used to [...] bifurcation. Access appeared in the distal R BROOMMAKER. Closure and sheath removal was performed with [...] Neutr Abs (ANC) 9.01 (H) 1.70 - [facility] 6.10 [facility] x10(3)/[facility] LABORATORY Lymphocytes % 8.8 % [facility] LABORATORY Lymphocytes Abs 1.0 0.9 - 3.[facility] LABORATORY Monocytes % 8.3 % [facility] LABORATORY Monocyte Abs 0.9 0.3 - 0.9 [facility] LABORATORY Eosinophils % 2.0 % [facility] LABORATORY Eosinophils Abs 0.2 0.0 - 0.4 [facility] x10(3)/[facility] LABORATORY Basophils % 0.4 % [facility] LABORATORY Basophils Abs 0.0 0.0 - 0.1 [facility] x10(3)/[facility] LABORATORY Immature Gran % 0.40 [...] Gran Abs 0.05 (H) 0.00 - 0.04 x10(3)/[facility] LABORATORY Specimen Anatomical Collection Method Collection Time Receive d Time (Source) Location / / Volume Laterality Blood specimen 08/10/2017 5:50 AM 018 5:59 (specimen) EST AM EST Resulting Agency Comment Spec In Lab Yonathan Smith MD HEMATOLOGY ORDERABLES Performing Organization Address City/State/[place] [address] (ABNORMAL) Hemogram (08/10/2017 5:50 AM EST) Analysis Performed At Patho logist Time Signature WBC 11.3 (H) 4.0 - 9.5 [facility] x10(3)/[facility] LABORATORY RBC 3.15 (L) 4.58 - [facility] 5.54 [facility] x10(6)/[facility] LABORATORY Hemoglobin 8.9 (L) 13.7 [facility] gm/dL [facility] LABORATORY Hematocrit 29.0 (L) 40.5 [facility] 48.5 % [facility] LABORATORY MCV 92.1 82.9 [facility].1 [facility] LABORATORY MCH 28.3 27.5 - [place] [facility] 32.1 pg [facility] LABORATORY MCHC 30.7 (L) 32.0 - [facility] 35.7 gm/dL [facility] LABORATORY Platelets 231 145 - 357 [facility] x10(3)/[facility] LABORATORY RDWSD 53.9 (H) 36.0 - [place] [facility] 45.0 [facility] LABORATORY RDWCV 16.2 (H) 11.4 - [facility] SU 13.8 % [facility] LABORATORY MPV 8.7 7.6 - 12.9 [facility] LABORATORY nRBC % Auto 0.0 % [facility] LABORATORY nRBC Abs Auto 0.000 0.000 - [facility] 0.000 [facility] x10(3)/[facility] LABORATORY Specimen Anatomical Collection Method Collection Time Receive d Time (Source) Location / / Volume Laterality Blood specimen 08/10/2017 5:50 AM 018 5:59 (specimen) EST AM EST Resulting Agency Comment Spec In Lab Yonathan Smith MD HEMATOLOGY ORDERABLES Performing Organization Address City/State/[place] [address] (ABNORMAL) Basic Metabolic Panel (non-fasting) (08/10/2017 5:50 AM EST) P athologist Signature Glucose Lvl 135 65 - 199 [facility] mg/dL [facility] LABORATORY [...] MEDICAL CENTER LABORATORY Estimated GFR >60 >=60 [facility] LABORATORY Comment: The reported eGFR should be multiplied b y 1.2 for patients. The MDRD is not an appropriate measure o f renal function for patients with body mass extremes or in patients with acute kidney failure. http://[employer]/DHnkdep http://[employer]/DHMCnkf Specimen Anatomical Collection Method Collection Time Receive d Time (Source) Location / / Volume Laterality Blood specimen 08/10/2017 5:50 AM 018 5:59 (specimen) EST AM EST Resulting Agency Comment Spec In Lab Yonathan Smith MD CHEMISTRY ORDERABLES Performing Organization Address [facility] [place] [address] (ABNORMAL) Prothrombin Time (08/10/2017 [...] MD HEMATOLOGY ORDERABLES Performing Organization Address City/[facility] [place] [address] (ABNORMAL) POCT Glucose (08/10/2017 4:01 AM EST) athologist Signature POC Glucose 206 (H) 65 - 199 [facility] mg/dL [facility] LABORATORY [...] Organization Address City/State/[place] [address] POCT Glucose (08/10/2017 2:01 AM EST) athologist Signature POC Glucose 188 65 - 199 [place] mg/dL [facility] LABORATORY Comment: Supplemental ranges: <140 mg/dL before meals <180 mg/dL all other times of the day Specimen Anatomical Collection Method Collection Time Receive d Time (Source) Location / / Volume Laterality Blood specimen 08/10/2017 2:01 AM 018 2:01 (specimen) EST AM EST Yonathan Smith MD POINT OF CARE TEST ORDERABLE S Performing Organization Address City/[facility]/[place] [address] (ABNORMAL) POCT Glucose (08/09/2017 11:42 PM EST) athologist Signature POC Glucose 283 (H) 65 - 199 [facility] mg/dL [facility] LABORATORY Comment: [...] Organization Address City/State/[place] [address] POCT Glucose (08/09/2017 8:55 PM EST) athologist Signature POC Glucose 182 65 - 199 [place] mg/dL [facility] LABORATORY Comment: Supplemental ranges: <140 mg/dL before meals <180 mg/dL all other times of the day Specimen Anatomical Collection Method Collection Time Receive d Time (Source) Location / / Volume Laterality Blood specimen 08/09/2017 8:55 PM 018 8:55 (specimen) EST PM EST Yonathan Smith MD POINT OF CARE TEST ORDERABLE S Performing Organization Address City/[facility]/[place] [address] (ABNORMAL) APTT (08/09/2017 6:42 [...] MD HEMATOLOGY ORDERABLES Performing Organization Address City/[facility]/[place] [address] POCT Glucose (08/09/2017 4:41 PM EST) athologist Signature POC Glucose 195 65 - 199 [facility]dL [facility] LABORATORY Comment: Supplemental ranges: <140 mg/dL before meals <180 mg/dL all other times of the day Specimen Anatomical Collection Method Collection Time Receive d Time (Source) Location / / Volume Laterality Blood specimen 08/09/2017 4:41 PM 018 4:41 (specimen) EST PM EST Yonathan Smith MD POINT OF CARE TEST ORDERABLE S Performing Organization Address City/[facility]/[place] [address] POCT Glucose (08/09/2017 12:29 PM EST) athologist Signature POC Glucose 140 65 - 199 [facility] mg/dL [facility] LABORATORY Comment: Supplemental ranges: <140 mg/dL before meals <180 mg/dL all other times of the day Specimen Anatomical Collection Method Collection Time Receive d Time (Source) Location / / Volume Laterality Blood specimen 08/09/2017 12:29 8 (specimen) PM EST 12:29 PM EST Yonathan Smith MD POINT OF CARE TEST ORDERABLE S Performing Organization Address [facility]/ZIP Code Phon e Number [address] POCT Glucose (08/09/2017 9:59 AM EST) P athologist Signature POC Glucose 135 65 - 199 [facility] mg/dL [facility] LABORATORY Comment: Supplemental ranges: <140 mg/dL before meals <180 mg/dL all other times of the day Specimen Anatomical Collection Method Collection Time Receive d Time (Source) Location / / Volume Laterality Blood specimen 08/09/2017 9:59 AM 018 9:59 (specimen) EST AM EST Yonathan Smith MD POINT OF CARE TEST ORDERABLE S Performing Organization Address [facility]/[place] [address] Specimen to Pathology (08/09/2017 [...] PATHOLOGY/CYTOLOGY ORDERABLE S Performing Organization Address City/[facility]/[place] [address] Surgical Pathology Report (08/09/2017 8:40 AM EST) Component Value Ref Test Analysis Performed At Patholo gist Range Method Time Signature Surgical [id number] ? Location: [facility]; [facility]; [facility] Report The signing pathologist has [...] [facility] [place] Dept. of Pathology, [place], [place] CLINICAL INFORMATION Specimen Submitted: A - [...] Organization Address City/State/[place] [address] Anaerobic Culture (08/09/2017 8:30 AM EST) [facility] Method Time Signature Anaerobic No anaerobic [facility] Culture organisms [facility] LABORATORY Specimen Anatomical Collection Method Collection Time Receive d Time (Source) Location / / Volume Laterality Specimen from STRUCTURE OF RIGHT 08/09/2017 8:30 AM 9:10 abscess FOOT / Unknown EST AM EST (specimen) Comment: SWAB RIGHT GREAT TOE ABSCESS FO R AEROBIC AND ANAEROBIC CULTURES. Resulting Agency Comment Spec In Lab Yonathan Smith MD MICROBIOLOGY - GENERAL ORDER ROBSON Performing Organization Address City/[facility]/[place] [address] (ABNORMAL) Abscess/Wound Aspirate Culture (08/09/2017 8:30 AM EST) [facility] [employer] Method Time Signature Abscess/Wound Moderate mixed [facility] Aspirate bacterial [place] Culture morphotypes [facility] normal LABORATORY cutaneous leroy (A) Gram Stain Rare White Blood Cells [place] Few Gram Positive Cocci in pairs [place] () [facility] LABORATORY Organism Gram Positive [place] Cocci in pairs [place] () [facility] LABORATORY Specimen [...] GENERAL ORDER ROBSON Performing Organization Address City/[facility]/ZIP Code Phon e Number [place] [address] POCT Glucose (08/09/2017 4:28 AM EST) P athologist Signature POC Glucose 128 65 - 199 [facility] mg/dL [facility] LABORATORY Comment: [...] Organization Address City/State/[place] [address] ABORH Recheck Status (08/09/2017 1:10 AM EST) [facility] Method Time Signature ABORH Type Completed [facility] LABORATORY Specimen Anatomical Collection Method Collection Time Receive d Time (Source) Location / / Volume Laterality Blood specimen 08/09/2017 1:10 AM 018 1:35 (specimen) EST AM EST Resulting Agency Comment Spec In Lab Yonathan Smith MD BLOOD BANK ORDERABLES Performing Organization Address City/State/[place] [address] Antibody screen (08/09/2017 1:10 AM EST) [facility] Method [place] Signature Ab Screen Negative [facility] LABORATORY Expires at 08/12/2017 [facility] [id number] on: [facility] LABORATORY Specimen Anatomical Collection Method Collection Time Receive d Time (Source) Location / / Volume Laterality Blood specimen 08/09/2017 1:10 AM 018 1:35 (specimen) EST AM EST Resulting Agency Comment Spec In Lab Yonathan Smith MD BLOOD BANK ORDERABLES Performing Organization Address City/State/[place] [address] ABO/Rh Typing (08/09/2017 1:10 [...] Organization Address City/State/[place] [address] (ABNORMAL) APTT (08/09/2017 1:10 [...] Organization Address City/State/[place] [address] (ABNORMAL) Differential, Automated (08/09/2017 1:10 AM EST) [facility] Method Time Signature Neutrophils % 76.2 % [facility] LABORATORY Neutr Abs (ANC) 8.59 (H) 1.70 - [facility] 6.10 [facility] x10(3)/[facility] LABORATORY Lymphocytes % 11.0 % [facility] LABORATORY Lymphocytes Abs 1.2 0.9 - 3.2 [facility] x10(3)/[facility] LABORATORY Monocytes % 8.4 % [facility] LABORATORY Monocyte Abs 1.0 (H) 0.3 - 0.9 [facility] x10(3)/[facility] LABORATORY Eosinophils % 3.5 % [facility] LABORATORY Eosinophils Abs 0.4 0.0 - 0.4 [facility] x10(3)/[facility] LABORATORY Basophils % 0.5 % [facility] LABORATORY Basophils Abs 0.1 0.0 - 0.1 [facility] x10(3)/[facility] LABORATORY Immature Gran % 0.40 [...] Gran Abs 0.05 (H) 0.00 - 0.04 x10(3)/[facility] LABORATORY Specimen Anatomical Collection Method Collection Time Receive d Time (Source) Location / / Volume Laterality Blood specimen 08/09/2017 1:10 AM 018 1:19 (specimen) EST AM EST Resulting Agency Comment Spec In Lab Yonathan Smith MD HEMATOLOGY ORDERABLES Performing Organization Address City/State/[place] [address] (ABNORMAL) Hemogram (08/09/2017 1:10 AM EST) Analysis Performed At Patho logist Time Signature WBC 11.3 (H) 4.0 - 9.5 [facility] x10(3)/[facility] LABORATORY RBC 3.47 (L) 4.58 [facility] 5.54 [facility] x10(6)/[facility] LABORATORY Hemoglobin 10.0 (L) 13.7 - [facility] 16.5 gm/dL [facility] LABORATORY Hematocrit 31.9 (L) 40.5 - [facility] 48.5 % [facility] LABORATORY MCV 91.9 82.[address] [facility] 93.1 [facility] LABORATORY MCH 28.8 27.5 [facility] 32.1 pg [facility] LABORATORY MCHC 31.3 (L) 32.0 - [facility] 35.7 gm/dL [facility] LABORATORY Platelets 234 145 - 357 [facility] x10(3)/[facility] LABORATORY RDWSD 54.0 (H) 36.0 - [facility] SU 45.0 [facility] LABORATORY RDWCV 16.2 (H) 11.4 - [facility] SU 13.8 % [facility] LABORATORY MPV 8.7 7.6 - 12.9 [facility] LABORATORY nRBC % Auto 0.0 % [facility] LABORATORY nRBC Abs Auto 0.000 0.000 - [facility] SU 0.000 [facility] x10(3)/[facility] LABORATORY Specimen Anatomical Collection Method Collection Time Receive d Time (Source) Location / / Volume Laterality Blood specimen 08/09/2017 1:10 AM 018 1:19 (specimen) EST AM EST Resulting Agency Comment Spec In Lab Yonathan Smith MD HEMATOLOGY ORDERABLES Performing Organization Address City/[facility]/[place] [address] (ABNORMAL) Prothrombin Time (08/09/2017 [...] MD HEMATOLOGY ORDERABLES Performing Organization Address City/[facility]/[place] [address] (ABNORMAL) Basic Metabolic Panel (non-fasting) (08/09/2017 1:10 AM EST) P athologist Signature Glucose Lvl 108 65 - 199 [facility] mg/dL [facility] LABORATORY Comment: Diabetes: >=200 mg/dL plus symp toms BUN 34 (H) 10 - 20 mg/dL [facility] LABORATORY Creatinine 1.54 (H) [...] CENTER LABORATORY Estimated GFR 45 (L) >=60 [facility] LABORATORY Comment: The reported eGFR should be multiplied b y 1.2 for patients. The MDRD is not an appropriate measure o f renal function for patients with body mass extremes or in patients with acute kidney failure. http://[employer]/DHnkdep http://[employer]/DHMCnkf Specimen Anatomical Collection Method Collection Time Receive d Time (Source) Location / / Volume Laterality Blood specimen 08/09/2017 1:10 AM 018 1:19 (specimen) EST AM EST Resulting Agency Comment Spec In Lab Yonathan Smith MD CHEMISTRY ORDERABLES Performing Organization Address City/State/ZIP Code Phon e Number [address] POCT Glucose (08/09/2017 12:05 AM EST) athologist Signature POC Glucose 128 65 - 199 [facility] mg/dL [facility] LABORATORY Comment: Supplemental ranges: <140 mg/dL before meals <180 mg/dL all other times of the day Specimen Anatomical Collection Method Collection Time Receive d Time (Source) Location / / Volume Laterality Blood specimen 08/09/2017 12:05 8 (specimen) AM EST 12:05 AM EST Yonathan Smith MD POINT OF CARE TEST ORDERABLE S Performing Organization Address City/[facility]/[place] [address] (ABNORMAL) POCT Glucose (08/08/2017 7:36 PM EST) athologist Signature POC Glucose 215 (H) 65 - 199 [facility] mg/dL [facility] LABORATORY Comment: [...] Organization Address City/State/[place] [address] (ABNORMAL) POCT Glucose (08/08/2017 6:23 PM EST) P athologist Signature POC Glucose 216 (H) 65 - 199 [facility] mg/dL [facility] LABORATORY Comment: Supplemental ranges: <140 mg/dL before meals <180 mg/dL all other times of the day Specimen Anatomical Collection Method Collection Time Receive d Time (Source) Location / / Volume Laterality Blood specimen 08/08/2017 6:23 PM 018 6:23 (specimen) EST PM EST Yonathan Smith MD POINT OF CARE TEST ORDERABLE S Performing Organization Address City/[facility]/[place] [address] (ABNORMAL) APTT (08/08/2017 6:00 [...] MD HEMATOLOGY ORDERABLES Performing Organization Address City/[facility]/[place] [address] POCT Glucose (08/08/2017 4:42 PM EST) athologist Signature POC Glucose 78 65 - [address] [facility]dL [facility] LABORATORY Comment: [...] Organization Address City/State/[place] [address] (ABNORMAL) POCT Glucose (08/08/2017 4:01 PM EST) athologist Signature POC Glucose 58 (L) 65 - [address] [facility]dL [facility] LABORATORY Comment: [...] Organization Address City/State/[place] [address] POCT Glucose (08/08/2017 11:51 AM EST) athologist Signature POC Glucose 90 65 - [address] [facility]dL [facility] LABORATORY Comment: [...] Organization Address City/State/[place] [address] (ABNORMAL) APTT (08/08/2017 10:27 [...] Address City/State/ZIP Code Phon e Number [address] POCT Glucose (08/08/2017 8:02 AM EST) athologist Signature POC Glucose 178 65 - 199 [facility] mg/dL [facility] LABORATORY Comment: Supplemental ranges: <140 mg/dL before meals <180 mg/dL all other times of the day Specimen Anatomical Collection Method Collection Time Receive d Time (Source) Location / / Volume Laterality Blood specimen 08/08/2017 8:02 AM 018 8:02 (specimen) EST AM EST Yonathan Smith MD POINT OF CARE TEST ORDERABLE S Performing Organization Address City/[facility]/[place] [address] (ABNORMAL) APTT (08/08/2017 4:51 AM EST) athologist Signature PTT >160 25 - 35 [facility] (Critical) sec [facility] LABORATORY [...] Organization Address City/State/[place] [address] (ABNORMAL) Differential, Automated (08/08/2017 4:51 AM EST) [facility] gist Method Time Signature Neutrophils % 77.9 % [facility] LABORATORY Neutr Abs (ANC) 8.17 (H) 1.70 - [facility] 6.10 [facility] x10(3)/[facility] LABORATORY Lymphocytes % 10.3 % [facility] LABORATORY Lymphocytes Abs 1.1 0.9 - 3.2 [facility] x10(3)/[facility] LABORATORY Monocytes % 7.0 % [facility] LABORATORY Monocyte Abs 0.7 0.3 - 0.9 [facility] x10(3)/[facility] LABORATORY Eosinophils % 3.6 % [facility] LABORATORY Eosinophils Abs 0.4 0.0 - 0.4 [facility] x10(3)/[facility] LABORATORY Basophils % 0.5 % [facility] LABORATORY Basophils Abs 0.0 0.0 - 0.1 [facility] x10(3)/[facility] LABORATORY Immature Gran % 0.70 % [facility] [...] Organization Address City/State/[place] [address] (ABNORMAL) Hemogram (08/08/2017 4:51 AM EST) Analysis Performed At Patho logist Time Signature WBC 10.5 (H) 4.0 - 9.5 [facility] LABORATORY RBC 3.27 (L) 4.58 - [facility] 5.54 [facility] x10(6)/[facility] LABORATORY Hemoglobin 9.3 (L) 13.7 - [place] 16.5 gm/dL [facility] LABORATORY Hematocrit 30.3 (L) 40.5 [facility] 48.5 % [facility] LABORATORY MCV 92.7 82.9 [facility] 93.1 [facility] LABORATORY MCH 28.4 27.5 - [facility] 32.1 pg [facility] LABORATORY MCHC 30.7 (L) 32.0 - [facility] 35.7 gm/dL [facility] LABORATORY Platelets 252 145 - 357 [facility] x10(3)/[facility] LABORATORY RDWSD 54.6 (H) 36.0 - [facility] 45.0 [facility] LABORATORY RDWCV 16.2 (H) 11.4 - [place] 13.8 % [facility] LABORATORY MPV 9.1 7.6 - 12.9 [facility] LABORATORY nRBC % Auto 0.0 % [facility] LABORATORY nRBC Abs Auto 0.000 0.000 - [place] [facility] 0.000 [facility] x10(3)/[facility] LABORATORY Specimen Anatomical Collection Method Collection Time Receive d Time (Source) Location / / Volume Laterality Blood specimen 08/08/2017 4:51 AM 018 5:14 (specimen) EST AM EST Resulting Agency Comment Spec In Lab Yonathan Smith MD HEMATOLOGY ORDERABLES Performing Organization Address City/State/[place] [address] (ABNORMAL) Prothrombin Time (08/08/2017 [...] Organization Address City/State/[place] [address] (ABNORMAL) Basic Metabolic Panel (non-fasting) (08/08/2017 4:51 AM EST) athologist Signature Glucose Lvl 229 (H) 65 - 199 [facility] mg/dL [facility] LABORATORY Comment: Diabetes: >=200 mg/dL plus symp toms BUN 35 (H) 10 - 20 mg/dL [facility] LABORATORY Creatinine 1.57 (H) [...] mmol/L [facility] LABORATORY Calcium 7.9 (L) 8.5 - 10.5 mg/dL [facility] LABORATORY Estimated GFR 44 (L) >=60 [facility] LABORATORY Comment: The reported eGFR should be multiplied b y 1.2 for patients. The MDRD is not an appropriate measure o f renal function for patients with body mass extremes or in patients with acute kidney failure. http://[employer]/DHnkdep http://[employer]/DHMCnkf Specimen Anatomical Collection Method Collection Time Receive d Time (Source) Location / / Volume Laterality Blood specimen 08/08/2017 4:51 AM 018 5:14 (specimen) EST AM EST Resulting Agency Comment Spec In Lab Yonathan Smith MD CHEMISTRY ORDERABLES Performing Organization Address City/[facility]/ZIP Code Phon e Number [address] POCT Glucose (08/08/2017 4:20 AM EST) athologist Signature POC Glucose 193 65 - 199 [facility] mg/dL [facility] LABORATORY [...] Address City/State/ZIP Code Phon e Number [address] POCT Glucose (08/07/2017 11:11 PM EST) athologist Signature POC Glucose 124 65 - 199 [facility] LABORATORY Comment: Supplemental ranges: <140 mg/dL before meals <180 mg/dL all other times of the day Specimen Anatomical Collection Method Collection Time Receive d Time (Source) Location / / Volume Laterality Blood specimen 08/07/2017 11:11 8 (specimen) PM EST 11:11 PM EST Yonathan Smith MD POINT OF CARE TEST ORDERABLE S Performing Organization Address City/[facility]/[place] [address] (ABNORMAL) APTT (08/07/2017 10:18 [...] MD HEMATOLOGY ORDERABLES Performing Organization Address City/[facility]/[place] [address] POCT Glucose (08/07/2017 8:10 PM EST) athologist Signature POC Glucose 140 65 - 199 [facility] mg/dL [facility] LABORATORY Comment: Supplemental ranges: <140 mg/dL before meals <180 mg/dL all other times of the day Specimen Anatomical Collection Method Collection Time Receive d Time (Source) Location / / Volume Laterality Blood specimen 08/07/2017 8:10 PM 018 8:10 (specimen) EST PM EST Ynoathan Smith MD POINT OF CARE TEST ORDERABLE S Performing Organization Address City/[facility]/[place] [address] POCT Glucose (08/07/2017 5:27 PM EST) athologist Signature POC Glucose 187 65 - 199 [facility] mg/dL [facility] LABORATORY Comment: Supplemental ranges: <140 mg/dL before meals <180 mg/dL all other times of the day Specimen Anatomical Collection Method Collection Time Receive d Time (Source) Location / / Volume Laterality Blood specimen 08/07/2017 5:27 PM 018 5:27 (specimen) EST PM EST Yonathan Smith MD POINT OF CARE TEST ORDERABLE S Performing Organization Address City/[facility]/[place] [address] POCT Glucose (08/07/2017 3:29 PM EST) athologist Signature POC Glucose 86 65 - 199 [facility] mg/dL [facility] LABORATORY Comment: Supplemental ranges: <140 mg/dL before meals <180 mg/dL all other times of the day Specimen Anatomical Collection Method Collection Time Receive d Time (Source) Location / / Volume Laterality Blood specimen 08/07/2017 3:29 PM 018 3:29 (specimen) EST PM EST Yonathan Smith MD POINT OF CARE TEST ORDERABLE S Performing Organization Address [facility]/ZIP [facility] [place] [address] (ABNORMAL) APTT (08/07/2017 2:50 [...] MD HEMATOLOGY ORDERABLES Performing Organization Address City/[facility]/ZIP [facility] Phon e Number [address] (ABNORMAL) POCT Glucose (08/07/2017 2:23 PM EST) athologist Signature POC Glucose 55 (L) 65 - 199 [facility] mg/dL [facility] LABORATORY Comment: [...] Address City/State/ZIP Code Phon e Number [address] POCT Glucose (08/07/2017 12:08 PM EST) P athologist Signature POC Glucose 77 65 - 199 [facility]dL [facility] LABORATORY [...] Address City/State/ZIP Code Phon e Number [address] (ABNORMAL) Differential, Automated (08/07/2017 7:30 AM EST) Patholo gist Method Time Signature Neutrophils % 73.8 % [facility] LABORATORY Neutr Abs (ANC) 7.17 (H) 1.70 - [facility] 6.10 [facility] x10(3)/[facility] LABORATORY Lymphocytes % 12.2 % [facility] LABORATORY Lymphocytes Abs 1.2 0.9 - 3.2 [facility] x10(3)/[facility] LABORATORY Monocytes % 9.0 % [facility] LABORATORY Monocyte Abs 0.9 0.3 - 0.9 [facility] x10(3)/[facility] LABORATORY Eosinophils % 3.9 % [facility] LABORATORY Eosinophils Abs 0.4 0.0 - 0.4 [facility] x10(3)/[facility] LABORATORY Basophils % 0.6 % [facility] LABORATORY Basophils Abs 0.1 0.0 - 0.1 [facility] x10(3)/[facility] LABORATORY Immature Gran % 0.50 % UNIVERSITY [...] Gran Abs 0.05 (H) 0.00 - 0.04 x10(3)/[facility] LABORATORY Specimen Anatomical Collection Method Collection Time Receive d Time (Source) Location / / Volume Laterality Blood specimen 08/07/2017 7:30 AM 018 7:45 (specimen) EST AM EST Resulting Agency Comment Spec In Lab Yonathan Smith MD HEMATOLOGY ORDERABLES Performing Organization Address City/State/[place] [address] (ABNORMAL) Hemogram (08/07/2017 7:30 AM EST) Analysis Performed At Patho logist Time Signature WBC 9.7 (H) 4.0 - 9.5 [facility] x10(3)/[facility] LABORATORY RBC 3.54 (L) 4.58 - [facility] 5.54 [facility] x10(6)/[facility] LABORATORY Hemoglobin 9.9 (L) 13.7 - [facility] 16.5 gm/dL [facility] LABORATORY Hematocrit 32.3 (L) 40.5 - [facility] 48.5 % [facility] LABORATORY MCV 91.2 82.9 - [facility] 93.1 [facility] LABORATORY MCH 28.0 27.5 - [facility]1 pg [facility] LABORATORY MCHC 30.7 (L) 32.0 - [facility] 35.7 gm/dL [facility] LABORATORY Platelets 312 145 - 357 [facility] x10(3)/[facility] LABORATORY RDWSD 53.2 (H) 36.0 - [facility] 45.0 [facility] LABORATORY RDWCV 16.0 (H) 11.4 - [facility] 13.8 % [facility] LABORATORY MPV 8.9 7.6 - 12.9 [facility] LABORATORY nRBC % Auto 0.0 % [facility] LABORATORY nRBC Abs Auto 0.000 0.000 - [facility] 0.000 [facility] x10(3)/[facility] LABORATORY Specimen Anatomical Collection Method Collection Time Receive d Time (Source) Location / / Volume Laterality Blood specimen 08/07/2017 7:30 AM 018 7:45 (specimen) EST AM EST Resulting Agency Comment Spec In Lab Yonathan Smith MD HEMATOLOGY ORDERABLES Performing Organization Address City/State/[place] [address] (ABNORMAL) Basic Metabolic Panel (non-fasting) (08/07/2017 7:30 AM EST) P athologist Signature Glucose Lvl 80 65 - 199 [facility] mg/dL [facility] LABORATORY Comment: Diabetes: >=200 mg/dL plus symp toms BUN 31 (H) 10 - 20 mg/dL [facility] LABORATORY Creatinine 1.22 0.80 [...] CENTER LABORATORY Estimated GFR 59 (L) >=60 [facility] LABORATORY Comment: The reported eGFR should be multiplied b y 1.2 for patients. The MDRD is not an appropriate measure o f renal function for patients with body mass extremes or in patients with acute kidney failure. http://[employer]/DHnkdep http://[employer]/DHMCnkf Specimen Anatomical Collection Method Collection Time Receive d Time (Source) Location / / Volume Laterality Blood specimen 08/07/2017 7:30 AM 018 7:45 (specimen) EST AM EST Resulting Agency Comment Spec In Lab Yonathan Smith MD CHEMISTRY ORDERABLES Performing Organization Address City/[facility] Phon e Number [address] POCT Glucose (08/07/2017 7:27 AM EST) athologist Signature POC Glucose 81 65 - 199 [facility] mg/dL [facility] LABORATORY Comment: Supplemental ranges: <140 mg/dL before meals <180 mg/dL all other times of the day Specimen Anatomical Collection Method Collection Time Receive d Time (Source) Location / / Volume Laterality Blood specimen 08/07/2017 7:27 AM 018 7:27 (specimen) EST AM EST Yonathan Smith MD POINT OF CARE TEST ORDERABLE S Performing Organization Address [facility] Phon e Number [address] APTT (08/07/2017 7:04 AM [...] MD HEMATOLOGY ORDERABLES Performing Organization Address City/[facility]/[place] [address] (ABNORMAL) Prothrombin Time (08/07/2017 [...] Organization Address City/State/[place] [address] POCT Glucose (08/07/2017 4:03 AM EST) athologist Signature POC Glucose 93 65 - 199 [facility] LABORATORY Comment: [...] Organization Address City/State/[place] [address] POCT Glucose (08/07/2017 12:04 AM EST) athologist Signature POC Glucose 107 65 - 199 [facility] mg/dL [facility] LABORATORY Comment: [...] Address City/State/ZIP Code Phon e Number [address] POCT Glucose (08/06/2017 7:56 PM EST) P athologist Signature POC Glucose 178 65 - 199 [facility] mg/dL [facility] LABORATORY [...] Address City/State/ZIP Code Phon e Number [address] TcPO2 (08/06/2017 2:32 PM EST) Component Value Ref Test Analysis Performed At Patholo gist Range Method Time Signature VB Text Department: Vascular Surgery Lab VASCUBASE Report Patient: [id number] (GREGORY HOANG) CPT: [id number] ICD10: I99.8 Referring Physician: YONATHAN SMITH ?? [...] Marks, VAMSI) 1199 (Not Given - Provider: Chiuqis Mcgrath RN - Reason: Order parameters not [...] 0454 (Given - P rovider: Henrique Marks RN)0848 (Given - Provider: Chiquis Mcgrath RN)1135 (Given [...]
Routine documented in this encounter Care Teams Home Mission Worker Relationship Specialty Start Date End Date Lovely Vicente MD PCP - General 04/16/[address] [place] [address] [address] [place] [address] documented as of this encounter
--- OUTSIDE RECORDS SUMMARY | 2022-04-01 10:05 | XMS_ITS | Encounter Summary ---
:1945 Author Organization [facility] [place] [address] Care Team Providers Name Role Phone Lovely Vicente MD Primary Care Provider Reason for Visit Auth/Cert Specialty Diagnoses / Procedures Referred By Contact Refer red To Contact Diagnoses Critical lower limb ischemia CELLULITIS RT FOOT Procedures EMERGENCY Referral ID Status Reason Start Date Expiration Date Visits Requ ested Visits Authorized [id number] 1 1 Encounter Details Date Type Department Care Team Description 08/11/2017 Surgery Main Operating Room Yonathan Smith (M SURG) DRESSING CHANGE Barbara Ocampo MD (FOR OTHER THAN IVAN) [facility] UNDER ANES. 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 [...] Dorsalis Pedis (Ankle) Artery ?132 ? 0.94 ??Iron-Biphasic ? Posterior Tibial (Ankle) Artery ??154 ? 1.10 ??Iron-Biphasic ? Fourth Toe ? 67 ?0.48 ?? [...] the foot. Discharge Conditions/Prognosis: Good Discharge to: [facility] Rehab Discharge Medications: Your Medications New [...] For any problems or questions please call [phone] ZELDA Smith, sports complex attendant Nurse Clinician For issues on weeknights after 5pm and weekends please call [phone] and ask for the Vascular Fellow customer response representative. General Instructions None Future Appointments and Orders Future Appointments Provider Department Dept Phone 08/26/2017 4:00 PM Aurelia Rivera PA Vascular Surgery at [place] [phone] 09/07/2017 3:00 PM LAB, THREE L Lab 3L [facility] [phone] 09/07/2017 4:00 PM Luz Prescott MD Endocrinology at [place] [phone] 09/09/2017 8:00 AM Barbra Soares APRN Pain Management at [place] [phone] Please bring a list of your current [...] For any problems or questions please call [phone] ZELDA Smith, sports complex attendant Nurse Clinician For issues on weeknights after 5pm and weekends please call [phone] and ask for the Vascular Fellow customer response representative. documented in this encounter Medications at [...] Discharge Note Patient Destination: [facility] ([facility]) [address] [place] [id number] Transportation: with (at bedside) Time of Discharge: by 12 noon Level of Care: swing Patient Aware: yes Family Notified: yes Md to call report to: Yissel Quintero SET AND EXHIBIT DESIGNER already called RN to call report to: [phone] Shirin Wolf Office of Care Management Pager [phone] Shirin Wagner RN - 08/16/2017 10:50 AM EST [facility] has offered pt swing bed. Pt and accept bed. will transport via car. SET AND EXHIBIT DESIGNER Yissel Quintero aware; d/c paperwork will be completed by 12 noon. [facility] requests pt arrival by 1400 today; SET AND EXHIBIT DESIGNER, RN, and family aware. SET AND EXHIBIT DESIGNER called [facility] and was told that they prefer pt to arrive with wound vac dressing applied but clamped. SET AND EXHIBIT DESIGNER applied new wound vac dressing. RN has [facility] number to call report. PASSR completed; SET AND EXHIBIT DESIGNER paged to request provider signature in highlighted space. Indigo from [facility] notified via email that home wound vac now cancelled; [facility] has picked up from room and order cancelled. Packet started and provided to ammunition specialist. Medicare important message explained to patient, patient signed. Copy provided to patient and signature page to OCM for inclusion in pt EMR. Radha Georges - 08/16/2017 10:34 AM EST Office of Care Management/Casting Cleaner Patient Name: Gregory Hoang : 1945 Patient has been offered a swing bed at [facility]. The patient will be transported by private transportation. No MD to MD report necessary Please call Nursing Report to [phone], ask for body cleaner. Info to accompany patient: Narcotic Prescriptions Copies of Medication Administration Records and IV sheets for past 10 days. Plan: Casting Cleaner will be available to the patient and Microbiological Analyst-RN and/or Qa Developer for further assistance. Patient will be discharged to: [facility] [address] [place] [address] [id number] Radha Powers, Casting Cleaner Mira Black, VAMSI - 08/15/2017 10:05 PM EST [address] Flores to ask if he wanted to hold metoprolol dose. BP 95/58. OK to hold this dose Courtney Brito - 08/15/2017 3:26 PM EST Office of Care Management(OCM)/Casting Cleaner(RS)/ D/C Planning re : Patient is medically ready for d/c today. RS has been in contact with [facility] to see if they could offer a bed. [facility] is still reviewing the case and need their MD to review chart prior to accepting or declining. OCM team needs to check in with [place] tomorrow to check on status. 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 Vac in [...] referral to: [facility] PHONE: [phone] FAX: [phone] CM spoke with RS who said that [...] rehab. Await recommendations from PT. Covering pager #[phone]. 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 Assembler Type Bar And Segment Kaitlin Saha, RN Pager #[phone] Payam Rosales - 08/13/2017 2:37 PM EST Home Aide Encounter Note Patient Name: Gregory Hoang : [id number] MR#: [id number] Admit Date: 08/06/2017 1:41 PM Hospital Day 7 days Narrative: Visited to introduce and assess acceptance of Home Aide services. Pt was awake, alert, oriented and in chair and family was there. Assessment:Patient coping positively with stresses of illness/hospitalization at this time. Pt says that he is hoping to get better and his family was there. Pt says that he has family care and supportand taking one day at time. Intervention and Outcome: Provided emotional support and encouraging presence. 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 A letter describing our affiliations was reviewed with them and theywere educated about their right to choose where referrals are placed. Patient requests referral to [facility]. PHONE: [phone] FAX: [phone]. And Home NPWT (Negative Pressure Wound Therapy) aka wound vac device made available to pt. Serial # confirmed. Reviewed [facility] Proof of Delivery/Assignment of Benefits Statement(POD/AOB) Form w patient or authorized agent signing on behalf of patient. Copy of POD/AOB provided to pt and other copy faxed to [employer] @ fax# [phone] Expected date of discharge: 08/12/2017. 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 Address: [address] [place] [address] [place] [address] (home) Mobile: Telephone Information: Referring Provider: No [...] SETUP performed by Manny Mcknight MD at [facility] MAIN OR ??? PRO CABG, ARTERIAL, SINGLE N/A 07/07/2017 @CABG, USING ARTERIAL GRAFT;SINGLE ARTERIAL GRAFT (WRVU 33.75) performed by Yuan Retana MD at [facility] MAIN OR ??? PRO CABG, ARTERY-VEIN, TWO N/A 07/07/2017 @CABG, TWO VENOUS GRAFTS & ARTERIAL GRAFT (WRVU 7.93) performed by Yuan Retana MD at [facility] MAIN OR ??? PRO COLONOSCOPY, REMV LESN, SNARE 01/16/2014 COLONOSCOPY, POLYPECTOMY, REMOVAL LESION BY SNARE performed by Nohemi Jaimes MD at [facility] ENDOSCOPY ??? PRO ENDOSCOPY W/VIDEO-ASST VEIN HARVEST, CABG Right 07/07/2017 ENDOSCOPIC HARVEST VEIN(S) FOR CABG (WRVU 0.31) performed by Yuan Retana MD at [facility] MAIN OR ??? 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. Heparin gtt continues to run. [...] : 1945 AGE 72 y.o. Address: [address] [place] [address] [place] [address] (home) Mobile: Telephone Information: Referring Provider: No [...] SETUP performed by Manny Mcknight MD at [facility] MAIN OR ??? PRO CABG, ARTERIAL, SINGLE N/A 07/07/2017 @CABG, USING ARTERIAL GRAFT;SINGLE ARTERIAL GRAFT (WRVU 33.75) performed by Yuan Retana MD at [facility] MAIN OR ??? PRO CABG, ARTERY-VEIN, TWO N/A 07/07/2017 @CABG, TWO VENOUS GRAFTS & ARTERIAL GRAFT (WRVU 7.93) performed by Yuan Retana MD at [facility] OR ??? PRO COLONOSCOPY, REMV LESN, SNARE 01/16/2014 COLONOSCOPY, POLYPECTOMY, REMOVAL LESION BY SNARE performed by Nohemi Jaimes MD at [facility] ENDOSCOPY ??? PRO ENDOSCOPY W/VIDEO-ASST VEIN HARVEST, CABG Right 07/07/2017 ENDOSCOPIC HARVEST VEIN(S) FOR CABG (WRVU 0.31) performed by Yuan Retana MD at [facility] MAIN OR ??? 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 Vascular resident customer response representative and will forward result to the team prior to rounds. 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 [...] SETUP performed by Manny Mcknight MD at [facility] MAIN OR ??? PRO CABG, ARTERIAL, SINGLE N/A 07/07/2017 @CABG, USING ARTERIAL GRAFT;SINGLE ARTERIAL GRAFT (WRVU 33.75) performed by Yuan Retana MD at [facility] MAIN OR ??? PRO CABG, ARTERY-VEIN, TWO N/A 07/07/2017 @CABG, TWO VENOUS GRAFTS & ARTERIAL GRAFT (WRVU 7.93) performed by Yuan Retana MD at [facility] MAIN OR ??? PRO COLONOSCOPY, REMV LESN, SNARE 01/16/2014 COLONOSCOPY, POLYPECTOMY, REMOVAL LESION BY SNARE performed by Nohemi Jaimes MD at [facility] ENDOSCOPY ??? PRO ENDOSCOPY W/VIDEO-ASST VEIN HARVEST, CABG Right 07/07/2017 ENDOSCOPIC HARVEST VEIN(S) FOR CABG (WRVU 0.31) performed by Yuan Retana MD at [facility] MAIN OR ??? PRO THYROIDECTOMY 03/28/2013 THYROIDECTOMY, TOTAL OR COMPLETE performed by Manny Mcknight MD at [facility] MAIN OR Functional Status/Social Hx: [...] left blue toes with CTA showing R TRIAL MANAGER pseudoaneurysm (now thrombosed) and occluded ATs [...] 2.5x80 5. Completion RLE angiogram 6. L TRIAL MANAGER angiogram 7. 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 - L TRIAL MANAGER angriogram demonstrated: High femoral bifurcation over the proximal half of the femoral head. L TRIAL MANAGER access in the distal L TRIAL MANAGER. - Closure device: Mynx Technical Procedure: [...] for a 45cm 5F Destination. V18 and [place] and QuickCross catheters were used to select [...] 5F. A stationed picture of the L TRIAL MANAGER was performed as the patient was noted to have a very high bifurcation. Access appeared in the distal R TRIAL MANAGER. Closure and sheath removal was performed [...] PM EST 1440 report called to 5 [place] nurse Tessa AGUSTIN documented in this encounter Miscellaneous Notes Plan of Care - Dory Truong RN - 08/16/2017 10:51 AM EST Problem: Patient Care Overview Goal: Plan of Care Review Outcome: Outcome (s) achieved Date Met: 08/16/17 08/14/17 1939 08/16/17 1091 Coping/Psychosocial Plan Of Care Reviewed With -- patient Plan of Care Review Progress improving -- Discussed discharge instructions with pt and pt's spouse. Discharge to [facility]. Goal: Individualization & Mutuality Outcome: Outcome [...] sit/sit to supine -- Bed Mobility Goal, Nicollet Level independent -- Bed Mobility Goal, Date [...] days -- Transfer Training Goal, Activity Type sow-lr-ruosl/kpvbb-jd-zte -- Transfer Train Goal, Nicollet Level conditional independence -- Transfer Train Goal, [...] call cabello within reach, Hourly rounding by RN/FORECLOSURE FIELD INSPECTOR. Bed alarm / Chair alarm. Patient-specific [...] Smith MD - 08/15/2017 6:28 PM EST [facility] Operative Note Patient Name: Gregory Hoang : [id number] MR#: [id number] Case Date: 08/09/2017 Surgeon: Surgeon(s) and Role: [...] 2.5x80 5. Completion RLE angiogram 6. L TRIAL MANAGER angiogram 7. Mynx closure Precautions/Restrictions: fall, [...] other (see comments) (or swing bed) Pager: [phone] BASSAM ELIAS, PT 08/14/2017 Inpatient Physical Therapy [...] to Achieve by discharge Gait Training Goal, Nicollet Level conditional independence;set up required Gait Training [...] these facilities over the weekend except for [facility]. CM spoke with [facility] KANWAL Sandhu RN who said that they do not anticipate any beds over the weekend. Reviewed with patient/ that they need to be aware that patient will need to take the first bed offered at the facilities that they make referrals to. Their choices are: 1- [facility] PHONE: [phone] FAX: [phone] 2- [facility] ([facility]) [address] [place] [address] 3- [facility])([facility]) [address] [place] [address] I have discussed Medicare/Private Insurance [...] RS/CM on Wednesday to follow-up. Covering pager #[phone] for today. Plan of Care - Henrique [...] with additional findings of pseudoaneurysm on R TRIAL MANAGER and bilateral anterior tibial artery occlusions. [...] an outpatient once discharged. Have patient call [phone] to set up an appointment. Follow-up: Dermatology will sign-off for now. Please do not hesitate to contact us if you have any questions orconcerns. Impression and Recommendations discussed with primary team on 08/13/2017. Karo Henderson MD Resident in Dermatology Section of Dermatology, Department of Surgery [facility] Pager [phone] Patient seen and evaluated with staff Sports Marketing Coordinator: Halima Cordero MD Section of Dermatology [facility] [...] 2.5x80 5. Completion RLE angiogram 6. L TRIAL MANAGER angiogram 7. Mynx closure Active Non-Hospital [...] home with home health ([facility] PT[facility]) Pager: [phone] YASIR TELLO OT 08/12/2017 Occupational Therapy Rehabilitation [...] 2.5x80 5. Completion RLE angiogram 6. L TRIAL MANAGER angiogram 7. Mynx closure Past Medical [...] with 24/7 assistance and maximal services) Pager: [phone] NICHOLAS MORA, JESSIE 08/12/2017 Physical Therapy Rehabilitation [...] sit/sit to supine -- Bed Mobility Goal, Nicollet Level independent -- Bed Mobility Goal, Outcome Achieved -- goal ongoing Goal: Gait Training Goal Stand Alone Therapy Goal Outcome: Ongoing (Interventions Implemented as Appropriate) 08/11/17 1310 08/12/17 1510 Gait Training Goal Gait Training Goal, Date Established 08/11/17 -- Gait Training Goal, Time to Achieve 5 - 7 days -- Gait Training Goal, Nicollet Level conditional independence -- Gait Training Goal, [...] days -- Transfer Training Goal, Activity Type agw-kg-munmy/riixi-yg-mwb -- Transfer Train Goal, Nicollet Level conditional independence -- Transfer Training Goal, [...] Rounds/Family Conf Participants patient;physician;nursing Op Note - Ynoathan Smith MD - 08/11/2017 2:52 PM EST [facility] Operative Note Patient Name: Gregory Hoang : [id number] MR#: [id number] Case Date: 08/11/2017 Surgeon: Surgeon(s) and Role: [...] 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 Completion RLE angiogram 6. L TRIAL MANAGER angiogram 7. Mynx closure He is [...] Anticipated Discharge Disposition: inpatient rehabilitation facility Pager: [phone] LAWRENCE GONZALEZ, PT 08/11/2017 Physical Therapy Rehabilitation [...] to sit/sit to supine Bed Mobility Goal, Nicollet Level independent Goal: Gait Training Goal Stand Alone Therapy Goal Outcome: Ongoing (Interventions Implemented as Appropriate) 08/11/17 1310 Gait Training Goal Gait Training Goal, Date Established 08/11/17 Gait Training Goal, Time to Achieve 5 - 7 days Gait Training Goal, Nicollet Level conditional independence Gait Training Goal, Assist [...] 7 days Transfer Training Goal, Activity Type tcp-qo-mtjuw/qtopq-qx-twg Transfer Train Goal, Nicollet Level conditional independence Plan of Care - [...] call cabello within reach, Hourly rounding by RN/FORECLOSURE FIELD INSPECTOR. Bed alarm / Chair alarm. ? [...] Past 30 Days: [facility] 07/20/2017 Anticipated Length Of Stay (If known): Expected Length of Hospitalization: 5-7 days2-3 days Current Decision-Making Capacity: Alert and oriented x 4 Advance Care Planning: on file Kisha Hoang [facility] [phone] Current Coping/Education/Information Needs: pt and spouse state [...] Health/Prescription Coverage: Primary Insurance: MEDICARE Secondary Insurance: [employer] [place] Prescription Coverage: See above Preferred Pharmacy: [facility] Other: N/A Primary Care Provider: Lovely Vicente MD [phone] Patient/Caregiver Goals of Treatment: Patient plans to return home when medically ready Potential Needs for Transition of Care: Rehab/SNF: N/A Home Health: [facility]. DME: pt has a cane and walker [...] of care planning. Kaitlin Saha RN Pager: [phone] Plan of Care - Melba Jaramillo RN [...] Overview Goal: Plan of Care Review 08/08/17 1944 Coping/Psychosocial Plan Of Care Reviewed With patient [...] call cabello within reach, Hourly rounding by RN/FORECLOSURE FIELD INSPECTOR. Bed alarm / Chair alarm. Patient-specific [...] at bedside and MD TEAM Carrying pager [phone] contacted (via Radio page) and notified of [...] Zulma Dolan MD [facility] [place], [place] 0[address] (Wo rk) 05/28/2022 Laboratory Appointment Lab 05/28/2022 Office Visit Cardiology Zulma Dolan MD [facility] [place] [address] Liz Poole PA [facility] [place] [address] 06/10/2022 Office Visit Dermatology Laura Scherer MD [facility] DR TEJA [facility] [place], [place] 0[address] (Wo rk) documented as of [...] TYPE AND SCREEN Routine 08/09/2017 1:10 AM ([facility]/SHANDA) EST BASIC METABOLIC PANEL Routine 08/09/2017 1:10 [...] 160 65 - 199 [place] mg/dL [facility] Comment: Supplemental ranges: <140 mg/dL before meals <180 mg/dL all other times of the day Specimen Anatomical Collection Method Collection Time Receive d Time (Source) Location / / Volume Laterality Blood specimen 08/16/2017 7:28 AM 018 7:28 (specimen) EST AM EST Yonathan Smith MD POINT OF CARE TEST ORDERABLE S Performing Organization Address City/State/Z[place] [address] (ABNORMAL) Differential, Automated (08/16/2017 5:08 AM EST) [facility] Method Time Signature Neutrophils % 73.9 % [facility] Neutr Abs (ANC) 5.37 1.70 - [facility] 6.10 [facility] x10(3)/[facility] LABORATORY Lymphocytes % 10.1 % [facility] Lymphocytes Abs 0.7 (L) 0.9 - 3.2 [facility] x10(3)/[facility] LABORATORY Monocytes % 10.1 % [facility] Monocyte Abs 0.7 0.3 - 0.9 [facility] x10(3)/[facility] LABORATORY Eosinophils % 5.1 % [facility] Eosinophils Abs 0.4 0.0 - 0.4 [facility] x10(3)/[facility] LABORATORY Basophils % 0.4 % [facility] Basophils Abs 0.0 0.0 - 0.1 [facility] x10(3)/[facility] LABORATORY Immature Gran % 0.40 % [place] [...] Melisa Gran Abs 0.03 0.00 - 0.04 x10(3)/[facility] Y [facility] LABORATORY Specimen Anatomical Collection Method Collection Time Receive d Time (Source) Location / / Volume Laterality Blood specimen 08/16/2017 5:08 AM 018 5:20 (specimen) EST AM EST Resulting Agency Comment Spec In Lab Yonathan Smith MD HEMATOLOGY ORDERABLES Performing Organization Address City/State/[place] [address] (ABNORMAL) Hemogram (08/16/2017 5:08 AM EST) Analysis Performed At Patho logist Time Signature WBC 7.3 4.0 - 9.5 [place] x10(3)/[facility] LABORATORY RBC 3.36 (L) 4.58 - [place] 5.54 [facility] x10(6)/[facility] LABORATORY Hemoglobin 9.7 (L) 13.7 - [facility] 16.5 gm/dL [facility] Hematocrit 30.3 (L) 40.5 - [place] 48.5 % [facility] MCV 90.2 82.9 - [facility] RYAN 93.[address] [facility] LABORATORY MCH 28.9 27.5 - [place] 32.1 pg [facility] MCHC 32.0 32.0 - [place] 35.7 gm/dL [facility] Platelets 282 145 - 357 [facility] x[facility](3[facility] LABORATORY RDWSD 53.9 (H) 36.0 - [place] 45.[address] [facility] LABORATORY RDWCV 16.5 (H) 11.4 - [place] 13.8 % [facility] MPV 9.0 7.6 - 12.9 [place] [facility] LABORATORY nRBC % Auto 0.0 % [facility] LAB[facility]ATORY nRBC Abs Auto 0.000 0.000 - [place] 0.000 [facility] x10(3)/[facility] LABORATORY Specimen Anatomical Collection Method Collection Time Receive d Time (Source) Location / / Volume Laterality Blood specimen 08/16/2017 5:08 AM 018 5:20 (specimen) EST AM EST Resulting Agency Comment Spec In Lab Yonathan Smith MD HEMATOLOGY ORDERABLES Performing Organization Address City/State/ZIP Code Phon e Number [place] [id number] (ABNORMAL) Basic Metabolic Panel (non-fasting) (08/16/2017 5:08 AM EST) P athologist Signature Glucose Lvl 141 65 - 199 [facility] mg/dL [facility] Comment: Diabetes: >=200 [...] or in patients with acute kidney failure. [email or web address] Specimen Anatomical Collection Method Collection Time Receive d Time (Source) Location / / Volume Laterality Blood specimen 08/16/2017 5:08 AM 018 5:20 (specimen) EST AM EST Resulting Agency Comment Spec In Lab Yonathan Smith MD CHEMISTRY ORDERABLES Performing Organization Address City/State/[place] [address] (ABNORMAL) Prothrombin Time (08/16/2017 5:08 AM EST) P athologist Signature PT 25.2 (H) 11.8 - 14.0 [facility] LABORATORY INR 2.3 (H) 0.9 - [...] Smith MD HEMATOLOGY ORDERABLES Performing Organization Address City/[facility]/ZIP Code Phon e Number [address] POCT Glucose (08/16/2017 4:09 AM EST) athologist Signature POC Glucose 147 65 - 199 [facility] Comment: Supplemental ranges: <140 mg/dL before meals <180 mg/dL all other times of the day Specimen Anatomical Collection Method Collection Time Receive d Time (Source) Location / / Volume Laterality Blood specimen 08/16/2017 4:09 AM 018 4:09 (specimen) EST AM EST Yonathan Smith MD POINT OF CARE TEST ORDERABLE S Performing Organization Address City/[facility]/ZIP Code Phon e Number [address] POCT Glucose (08/15/2017 11:56 PM EST) athologist Signature POC Glucose 176 65 - 199 [facility]dL [facility] Comment: Supplemental ranges: <140 mg/dL before meals <180 mg/dL all other times of the day Specimen Anatomical Collection Method Collection Time Receive d Time (Source) Location / / Volume Laterality Blood specimen 08/15/2017 11:56 8 (specimen) PM EST 11:56 PM EST Yonathan Smith MD POINT OF CARE TEST ORDERABLE S Performing Organization Address City/[facility]/ZIP Code Phon e Number [address] POCT Glucose (08/15/2017 8:05 PM EST) athologist Signature POC Glucose 136 65 - 199 [place] mg/dL [facility] Comment: Supplemental ranges: <140 mg/dL before meals <180 mg/dL all other times of the day Specimen Anatomical Collection Method Collection Time Receive d Time (Source) Location / / Volume Laterality Blood specimen 08/15/2017 8:05 PM 018 8:05 (specimen) EST PM EST oYnathan Smith MD POINT OF CARE TEST ORDERABLE S Performing Organization Address City/State/[place] [address] (ABNORMAL) POCT Glucose (08/15/2017 4:50 PM EST) athologist Signature POC Glucose 232 (H) 65 - 199 [facility]dL [facility] Comment: Supplemental ranges: <140 mg/dL before meals <180 mg/dL all other times of the day Specimen Anatomical Collection Method Collection Time Receive d Time (Source) Location / / Volume Laterality Blood specimen 08/15/2017 4:50 PM 018 4:50 (specimen) EST PM EST Yonathan Smith MD POINT OF CARE TEST ORDERABLE S Performing Organization Address City/State/[place] [address] POCT Glucose (08/15/2017 12:04 PM EST) athologist Signature POC Glucose 135 65 - 199 [place] mg/dL [facility] Comment: Supplemental ranges: <140 mg/dL before meals <180 mg/dL all other times of the day Specimen Anatomical Collection Method Collection Time Receive d Time (Source) Location / / Volume Laterality Blood specimen 08/15/2017 12:04 8 (specimen) PM EST 12:04 PM EST Yonathan Smith MD POINT OF CARE TEST ORDERABLE S Performing Organization Address City/State/[place] [address] POCT Glucose (08/15/2017 7:36 AM EST) P athologist Signature POC Glucose 124 65 - 199 [facility] mg/dL [facility] Comment: Supplemental ranges: <140 mg/dL before meals <180 mg/dL all other times of the day Specimen Anatomical Collection Method Collection Time Receive d Time (Source) Location / / Volume Laterality Blood specimen 08/15/2017 7:36 AM 018 7:36 (specimen) EST AM EST Yonathan Smith MD POINT OF CARE TEST ORDERABLE S Performing Organization Address City/State/[place] [address] (ABNORMAL) Differential, Automated (08/15/2017 6:22 AM EST) Patholo gist Method Time Signature Neutrophils % 76.1 % [facility] LABORATORY Neutr Abs (ANC) 6.62 (H) 1.70 - [facility] 6.10 [facility] x10(3)/[facility] L LABORATORY Lymphocytes % 9.3 % [facility] LABORATORY Lymphocytes Abs 0.8 (L) 0.9 - 3.2 [facility] x10(3)/[facility] LABORATORY Monocytes % 9.4 % [facility] LABORATORY Monocyte Abs 0.8 0.3 - 0.9 [facility] x10(3)/[facility] LABORATORY Eosinophils % 4.0 % [facility] LABORATORY Eosinophils Abs 0.4 0.0 - 0.4 [facility] x10(3)/[facility] LABORATORY Basophils % 0.6 % [facility] LABORATORY Basophils Abs 0.0 0.0 - 0.1 [facility] x10(3)/[facility] LABORATORY Immature Gran % 0.60 % [place] [...] Address City/State/Z[place] [address] (ABNORMAL) Hemogram (08/15/2017 6:22 AM EST) Analysis Performed At Patho logist Time Signature WBC 8.7 4.0 - 9.5 [facility] x10(3)/[facility] LABORATORY RBC 3.21 (L) 4.58 - [facility] 5.54 [facility] x10(6)/[facility] LABORATORY Hemoglobin 9.1 (L) 13.7 - [facility] 16.5 gm/dL [facility] LAB[facility]ORY Hematocrit 29.0 (L) 40.5 - [facility] 48.5 % [facility] LABORATORY MCV 90.3 82.9 - [facility] 93.[address] [facility] LABORATORY MCH 28.3 27.5 - [facility] RYAN 32.1 pg [facility] LABORATORY MCHC 31.4 (L) 32.0 - [facility] 35.7 gm/dL [facility] Platelets 254 145 - 357 [facility] x10(3)/[facility] LABORATORY RDWSD 53.9 (H) 36.0 - [facility] RYAN 45.[address] [facility] LABORATORY RDWCV 16.3 (H) 11.4 - [facility] RYAN 13.8 % [facility] LABORATORY MPV 8.8 7.6 - 12.9 [facility] LABORATORY nRBC % Auto 0.0 % [facility] LABORATORY nRBC Abs Auto 0.000 0.000 - [place] 0.000 [facility] x10(3)/[facility] LABORATORY Specimen Anatomical Collection Method Collection Time Receive d Time (Source) Location / / Volume Laterality Blood specimen 08/15/2017 6:22 AM 018 6:33 (specimen) EST AM EST Resulting Agency Comment Spec In Lab Yonathan Smith MD HEMATOLOGY ORDERABLES Performing Organization Address City/State/ZIP [place] [address] (ABNORMAL) Basic Metabolic Panel (non-fasting) (08/15/2017 6:22 AM EST) P athologist Signature Glucose Lvl 118 65 - 199 [facility] mg/dL [facility] Comment: Diabetes: >=200 [...] [facility] Estimated GFR >60 >=60 [facility] LABORATORY Comment: The reported eGFR should be multiplied b y 1.2 for patients. The MDRD is not an appropriate measure o f renal function for patients with body mass extremes or in patients with acute kidney failure. [email or web address]/DHnkdep [email or web address]/DHMCnkf Specimen Anatomical Collection Method Collection Time Receive d Time (Source) Location / / Volume Laterality Blood specimen 08/15/2017 6:22 AM 018 6:33 (specimen) EST AM EST Resulting Agency Comment Spec In Lab Yonathan Smith MD CHEMISTRY ORDERABLES Performing Organization Address City/State/[place] [address] (ABNORMAL) Prothrombin Time (08/15/2017 6:22 AM EST) athologist Signature PT 21.9 (H) 11.8 - 14.0 [facility] LABORATORY INR 1.9 (H) 0.9 - [...] Smith MD HEMATOLOGY ORDERABLES Performing Organization Address City/[facility]/[place] [address] POCT Glucose (08/15/2017 4:33 AM EST) athologist Signature POC Glucose 164 65 - 199 [facility]dL [facility] Comment: Supplemental ranges: <140 mg/dL before meals <180 mg/dL all other times of the day Specimen Anatomical Collection Method Collection Time Receive d Time (Source) Location / / Volume Laterality Blood specimen 08/15/2017 4:33 AM 018 4:33 (specimen) EST AM EST Yonathan Smith MD POINT OF CARE TEST ORDERABLE S Performing Organization Address City/State/[place] [address] POCT Glucose (08/15/2017 12:12 AM EST) athologist Signature POC Glucose 89 65 - 199 [facility] mg/dL [facility] Comment: Supplemental ranges: <140 mg/dL before meals <180 mg/dL all other times of the day Specimen Anatomical Collection Method Collection Time Receive d Time (Source) Location / / Volume Laterality Blood specimen 08/15/2017 12:12 8 (specimen) AM EST 12:12 AM EST Yonathan Smith MD POINT OF CARE TEST ORDERABLE S Performing Organization Address City/State/[place] [address] (ABNORMAL) POCT Glucose (08/14/2017 8:07 PM EST) athologist Signature POC Glucose 204 (H) 65 - 199 [facility] mg/dL [facility] Comment: Supplemental ranges: <140 mg/dL before meals <180 mg/dL all other times of the day Specimen Anatomical Collection Method Collection Time Receive d Time (Source) Location / / Volume Laterality Blood specimen 08/14/2017 8:07 PM 018 8:07 (specimen) EST PM EST Yonathan Smith MD POINT OF CARE TEST ORDERABLE S Performing Organization Address City/State/[place] [address] POCT Glucose (08/14/2017 5:11 PM EST) athologist Signature POC Glucose 174 65 - 199 [place] [facility] mg/dL [facility] Comment: Supplemental ranges: <140 mg/dL before meals <180 mg/dL all other times of the day Specimen Anatomical Collection Method Collection Time Receive d Time (Source) Location / / Volume Laterality Blood specimen 08/14/2017 5:11 PM 018 5:11 (specimen) EST PM EST Yonathan Smith MD POINT OF CARE TEST ORDERABLE S Performing Organization Address City/State/[place] [address] POCT Glucose (08/14/2017 12:10 PM EST) athologist Signature POC Glucose 141 65 - 199 [facility] mg/dL [facility] Comment: Supplemental ranges: <140 mg/dL before meals <180 mg/dL all other times of the day Specimen Anatomical Collection Method Collection Time Receive d Time (Source) Location / / Volume Laterality Blood specimen 08/14/2017 12:10 8 (specimen) PM EST 12:10 PM EST Yonathan Smith MD POINT OF CARE TEST ORDERABLE S Performing Organization Address City/State/[place] [address] POCT Glucose (08/14/2017 8:07 AM EST) P athologist Signature POC Glucose 158 65 - 199 [facility]dL [facility] Comment: Supplemental ranges: <140 mg/dL before meals <180 mg/dL all other times of the day Specimen Anatomical Collection Method Collection Time Receive d Time (Source) Location / / Volume Laterality Blood specimen 08/14/2017 8:07 AM 018 8:07 (specimen) EST AM EST Yonathan Smith MD POINT OF CARE TEST ORDERABLE S Performing Organization Address City/State/[place] [address] (ABNORMAL) Differential, Automated (08/14/2017 4:52 AM EST) Patholo gist Method Time Signature Neutrophils % 78.6 % [facility] LABORATORY Neutr Abs (ANC) 7.70 (H) 1.70 - [facility] 6.10 [facility] x10(3)/[facility] L LABORATORY Lymphocytes % 7.8 % [facility] LABORATORY Lymphocytes Abs 0.8 (L) 0.9 - 3.2 [facility] x10(3)/[facility] LABORATORY Monocytes % 8.8 % [facility] LABORATORY Monocyte Abs 0.9 0.3 - 0.9 [facility] x10(3)/[facility] LABORATORY Eosinophils % 4.0 % [facility] LABORATORY Eosinophils Abs 0.4 0.0 - 0.4 [facility] x10(3)/[facility] LABORATORY Basophils % 0.5 % [facility] LABORATORY Basophils Abs 0.0 0.0 - 0.1 [facility] x10(3)/[facility] LABORATORY Immature Gran % 0.30 % [place] [...] Abs 0.03 0.00 - 0.04 x10(3)/[facility] MAR Y [facility] LABORATORY Specimen Anatomical Collection Method Collection Time Receive d Time (Source) Location / / Volume Laterality Blood specimen 08/14/2017 4:52 AM 018 5:08 (specimen) EST AM EST Resulting Agency Comment Spec In Lab Yonathan Smith MD HEMATOLOGY ORDERABLES Performing Organization Address City/State/[place] [address] (ABNORMAL) Hemogram (08/14/2017 4:52 AM EST) Analysis Performed At Patho logist Time Signature WBC 9.8 (H) 4.0 - 9.5 [facility] x10(3)/[facility] LABORATORY RBC 3.32 (L) 4.58 - [facility] 5.54 [facility] x10(6)/[facility] LABORATORY Hemoglobin 9.5 (L) 13.7 - [facility] 16.5 gm/dL [facility] Hematocrit 30.3 (L) 40.5 - [facility] 48.5 % [facility] LABOR[facility]ORY MCV 91.3 82.9 - [facility] 93.[address] [facility] LABORATORY MCH 28.6 27.5 - [facility] RYAN 32.1 pg [facility] LABORATORY MCHC 31.4 (L) 32.0 - [facility] 35.7 gm/dL [facility] Platelets 263 145 - 357 [facility] x10(3)/[facility] LABORATORY RDWSD 54.8 (H) 36.0 - [place] 45.[address] [facility] LABORATORY RDWCV 16.5 (H) 11.4 - [facility] 13.8 % [facility] LABOR[facility] MPV 9.1 7.6 - 12.9 [facility] LABORATORY nRBC % Auto 0.0 % [facility] LABORATORY nRBC Abs Auto 0.000 0.000 - [facility] 0.000 [facility] x10(3)/[facility] LABORATORY Specimen Anatomical Collection Method Collection Time Receive d Time (Source) Location / / Volume Laterality Blood specimen 08/14/2017 4:52 AM 018 5:08 (specimen) EST AM EST Resulting Agency Comment Spec In Lab Yonathan Smith MD HEMATOLOGY ORDERABLES Performing Organization Address City/State/[place] [address] (ABNORMAL) Prothrombin Time (08/14/2017 4:52 AM EST) athologist Signature PT 18.8 (H) 11.8 - 14.0 [facility] [...] Address City/State/Z[place] [address] (ABNORMAL) Basic Metabolic Panel (non-fasting) (08/14/2017 4:52 AM EST) P athologist Signature Glucose Lvl 135 65 - 199 [facility] mg/dL [facility] Comment: Diabetes: >=200 [...] or in patients with acute kidney failure. [email or web address] [email or web address] Specimen Anatomical Collection Method Collection Time Receive d Time (Source) Location / / Volume Laterality Blood specimen 08/14/2017 4:52 AM 018 5:08 (specimen) EST AM EST Resulting Agency Comment Spec In Lab Yonathan Smith MD CHEMISTRY ORDERABLES Performing Organization Address City/State/ZIP [place] [address] POCT Glucose (08/14/2017 3:56 AM EST) P athologist Signature POC Glucose 135 65 - 199 [facility] mg/dL [facility] Comment: Supplemental ranges: <140 mg/dL before meals <180 mg/dL all other times of the day Specimen Anatomical Collection Method Collection Time Receive d Time (Source) Location / / Volume Laterality Blood specimen 08/14/2017 3:56 AM 018 3:56 (specimen) EST AM EST Yonathan Smith MD POINT OF CARE TEST ORDERABLE S Performing Organization Address City/State/ZIP Code Phon e Number [address] POCT Glucose (08/13/2017 11:13 PM EST) athologist Signature POC Glucose 118 65 - 199 [facility] mg/dL [facility] Comment: Supplemental ranges: <140 mg/dL before meals <180 mg/dL all other times of the day Specimen Anatomical Collection Method Collection Time Receive d Time (Source) Location / / Volume Laterality Blood specimen 08/13/2017 11:13 8 (specimen) PM EST 11:13 PM EST Yonathan Smith MD POINT OF CARE TEST ORDERABLE S Performing Organization Address City/[facility]/[place] [address] (ABNORMAL) POCT Glucose (08/13/2017 8:08 PM EST) athologist Signature POC Glucose 204 (H) 65 - 199 [facility] mg/dL [facility] Comment: Supplemental ranges: <140 mg/dL before meals <180 mg/dL all other times of the day Specimen Anatomical Collection Method Collection Time Receive d Time (Source) Location / / Volume Laterality Blood specimen 08/13/2017 8:08 PM 018 8:08 (specimen) EST PM EST Ynoathan Smith MD POINT OF CARE TEST ORDERABLE S Performing Organization Address City/State/[place] [address] POCT Glucose (08/13/2017 4:02 PM EST) athologist Signature POC Glucose 145 65 - 199 [place] mg/dL [facility] Comment: Supplemental ranges: <140 mg/dL before meals <180 mg/dL all other times of the day Specimen Anatomical Collection Method Collection Time Receive d Time (Source) Location / / Volume Laterality Blood specimen 08/13/2017 4:02 PM 018 4:02 (specimen) EST PM EST Yonathan Smith MD POINT OF CARE TEST ORDERABLE S Performing Organization Address City/State/[place] [address] POCT Glucose (08/13/2017 11:31 AM EST) athologist Signature POC Glucose 179 65 - 199 [facility] mg/dL [facility] Comment: Supplemental ranges: <140 mg/dL before meals <180 mg/dL all other times of the day Specimen Anatomical Collection Method Collection Time Receive d Time (Source) Location / / Volume Laterality Blood specimen 08/13/2017 11:31 8 (specimen) AM EST 11:31 AM EST Yonathan Smith MD POINT OF CARE TEST ORDERABLE S Performing Organization Address City/[facility]/[place] [address] (ABNORMAL) POCT Glucose (08/13/2017 10:16 AM EST) athologist Signature POC Glucose 211 (H) 65 - 199 [facility] mg/dL [facility] Comment: Supplemental ranges: <140 mg/dL before meals <180 mg/dL all other times of the day Specimen Anatomical Collection Method Collection Time Receive d Time (Source) Location / / Volume Laterality Blood specimen 08/13/2017 10:16 8 (specimen) AM EST 10:16 AM EST Yonathan Smith MD POINT OF CARE TEST ORDERABLE S Performing Organization Address City/[facility]/[place] [address] JULIAN, legs, multiple levels (08/13/2017 7:42 AM EST) Component Value Ref Test Analysis Performed At Patholo gist Range Method Time Signature VB Text Department: Vascular Surgery Lab VASCUBASE Report Patient: [id number] (GREGORY HOANG) CPT: 12044 ICD10: I99.8 Referring Physician: YONATHAN SMITH ?? Indications: s/p R 1,2,3 toe amps with red left foot, need n ew baseline Diabetes mellitus: yes ICD10 Diagnosis Code: I99.8 Findings: Right ?Pressure (mm Hg) ?? JULIAN ??Waveform ?TBI ?? Brachial Artery ?138 ? Dorsalis Pedis (Ankle) Arter y ?132 ? 0.94 ??Iron- Biphasic ? Posterior Tibial (Ankle) Art anila ??154 ? 1.10 ??Iron-Biphasic ? Fourth Toe ? 67 ? 0.48 [...] Glucose 156 65 - 199 [facility] mg/dL [facility] Comment: Supplemental ranges: <140 mg/dL before meals <180 mg/dL all other times of the day Specimen Anatomical Collection Method Collection Time Receive d Time (Source) Location / / Volume Laterality Blood specimen 08/13/2017 7:33 AM 018 7:33 (specimen) EST AM EST Yonathan Smith MD POINT OF CARE TEST ORDERABLE S Performing Organization Address City/State/ZIP Code Phon e Number [place] [id number] (ABNORMAL) Differential, Automated (08/13/2017 5:33 AM EST) [facility] Method Time Signature Neutrophils % 77.8 % [facility] LABORATORY Neutr Abs (ANC) 7.83 (H) 1.70 - [facility] 6.10 [facility] x10(3)/[facility] L LABORATORY Lymphocytes % 8.4 % [facility] LABORATORY Lymphocytes Abs 0.8 (L) 0.9 - 3.2 [facility] x10(3)/[facility] LABORATORY Monocytes % 8.3 % [facility] LABORATORY Monocyte Abs 0.8 0.3 - 0.9 [facility] x10(3)/[facility] LABORATORY Eosinophils % 4.6 % [facility] LABORATORY Eosinophils Abs 0.5 (H) 0.0 - 0.4 [facility] x10(3)/[facility] LABORATORY Basophils % 0.5 % [facility] LABORATORY Basophils Abs 0.0 0.0 - 0.1 [facility] x10(3)/[facility] LABORATORY Immature Gran % 0.40 % [place] [...] 0.04 0.00 - 0.04 x10(3)/[facility]L [facility] LABORATORY Specimen Anatomical Collection Method Collection Time Receive d Time (Source) Location / / Volume Laterality Blood specimen 08/13/2017 5:33 AM 018 6:04 (specimen) EST AM EST Resulting Agency Comment Spec In Lab Yonathan Smith MD HEMATOLOGY ORDERABLES Performing Organization Address City/State/Z[place] [address] (ABNORMAL) Hemogram (08/13/2017 5:33 AM EST) Analysis Performed At Patho logist Time Signature WBC 10.1 (H) 4.0 - 9.5 [facility] x10(3)/[facility] LABORATORY RBC 3.21 (L) 4.58 - [facility] 5.54 [facility] x10(6)/[facility] LABORATORY Hemoglobin 9.2 (L) 13.7 - [facility] 16.[facility] gm/dL [facility] Hematocrit 29.6 (L) 40.5 - [facility] 48.5 % [facility] LAB[facility] MCV 92.2 82.9 - [facility] 93.[address] [facility] LABORATORY MCH 28.7 27.5 - [facility] 32.1 pg [facility] LAB[facility] MCHC 31.1 (L) 32.0 - [facility] 35.7 gm/dL [facility] Platelets 263 145 - 357 [facility] x10(3)/[facility] LABORATORY RDWSD 54.8 (H) 36.0 - [facility] 45.[address] [facility] LABORATORY RDWCV 16.4 (H) 11.4 - [facility] 13.8 % [facility] LABORATORY MPV 9.2 7.6 - 12.9 [facility] LABORATORY nRBC % Auto 0.0 % [facility] LABORATORY nRBC Abs Auto 0.000 0.000 - [facility] 0.000 [facility] x10(3)/[facility] LABORATORY Specimen Anatomical Collection Method Collection Time Receive d Time (Source) Location / / Volume Laterality Blood specimen 08/13/2017 5:33 AM 018 6:04 (specimen) EST AM EST Resulting Agency Comment Spec In Lab Yonathan Smith MD HEMATOLOGY ORDERABLES Performing Organization Address City/State/Z[place] [address] (ABNORMAL) Prothrombin Time (08/13/2017 5:33 AM EST) P athologist Signature PT 17.3 (H) 11.8 - 14.0 [facility] LABORATORY INR 1.4 (H) 0.9 - [...] Address City/State/Z[place] [address] (ABNORMAL) Basic Metabolic Panel (non-fasting) (08/13/2017 5:33 AM EST) athologist Signature Glucose Lvl 126 65 - 199 [facility] mg/dL [facility] Comment: Diabetes: >=200 [...] [facility] Estimated GFR >60 >=60 [facility] [facility] Comment: The reported eGFR should be multiplied b y 1.2 for patients. The MDRD is not an appropriate measure o f renal function for patients with body mass extremes or in patients with acute kidney failure. [email or web address]/DHnkdep [email or web address] Specimen Anatomical Collection Method Collection Time Receive d Time (Source) Location / / Volume Laterality Blood specimen 08/13/2017 5:33 AM 018 6:04 (specimen) EST AM EST Resulting Agency Comment Spec In Lab Yonathan Smith MD CHEMISTRY ORDERABLES Performing Organization Address City/[facility]/ZIP Code Phon e Number [address] POCT Glucose (08/13/2017 4:29 AM EST) athologist Signature POC Glucose 111 65 - 199 [facility] Comment: Supplemental ranges: <140 mg/dL before meals <180 mg/dL all other times of the day Specimen Anatomical Collection Method Collection Time Receive d Time (Source) Location / / Volume Laterality Blood specimen 08/13/2017 4:29 AM 018 4:29 (specimen) EST AM EST Yonathan Smith MD POINT OF CARE TEST ORDERABLE S Performing Organization Address City/[facility]/ZIP Code Phon e Number [address] POCT Glucose (08/12/2017 11:28 PM EST) athologist Signature POC Glucose 164 65 - 199 [facility] Comment: Supplemental ranges: <140 mg/dL before meals <180 mg/dL all other times of the day Specimen Anatomical Collection Method Collection Time Receive d Time (Source) Location / / Volume Laterality Blood specimen 08/12/2017 11:28 8 (specimen) PM EST 11:28 PM EST Yonathan Smith MD POINT OF CARE TEST ORDERABLE S Performing Organization Address City/[facility]/[place] [address] (ABNORMAL) POCT Glucose (08/12/2017 7:40 PM EST) athologist Signature POC Glucose 209 (H) 65 - 199 [facility] ZHAORYAN mg/dL [facility] Comment: Supplemental ranges: <140 mg/dL before meals <180 mg/dL all other times of the day Specimen Anatomical Collection Method Collection Time Receive d Time (Source) Location / / Volume Laterality Blood specimen 08/12/2017 7:40 PM 018 7:40 (specimen) EST PM EST Yonathan Smith MD POINT OF CARE TEST ORDERABLE S Performing Organization Address City/State/ZIP Code Phon e Number [address] POCT Glucose (08/12/2017 4:24 PM EST) athologist Signature POC Glucose 161 65 - 199 [facility] mg/dL [facility] Comment: Supplemental ranges: <140 mg/dL before meals <180 mg/dL all other times of the day Specimen Anatomical Collection Method Collection Time Receive d Time (Source) Location / / Volume Laterality Blood specimen 08/12/2017 4:24 PM 018 4:24 (specimen) EST PM EST Yonathan Smith MD POINT OF CARE TEST ORDERABLE S Performing Organization Address City/State/[place] [address] POCT Glucose (08/12/2017 12:00 PM EST) athologist Signature POC Glucose 167 65 - 199 [facility] ZHAORYAN mg/dL [facility] Comment: Supplemental ranges: <140 mg/dL before meals <180 mg/dL all other times of the day Specimen Anatomical Collection Method Collection Time Receive d Time (Source) Location / / Volume Laterality Blood specimen 08/12/2017 12:00 8 (specimen) PM EST 12:00 PM EST Yonathan Smith MD POINT OF CARE TEST ORDERABLE S Performing Organization Address City/State/[place] [address] POCT Glucose (08/12/2017 7:25 AM EST) P athologist Signature POC Glucose 152 65 - 199 [facility] mg/dL [facility] Comment: Supplemental ranges: <140 mg/dL before meals <180 mg/dL all other times of the day Specimen Anatomical Collection Method Collection Time Receive d Time (Source) Location / / Volume Laterality Blood specimen 08/12/2017 7:25 AM 018 7:25 (specimen) EST AM EST Yonathan Smith MD POINT OF CARE TEST ORDERABLE S Performing Organization Address City/State/ZIP Code Phon e Number [place] [id number]ORY [address] (ABNORMAL) Differential, Automated (08/12/2017 6:29 AM EST) Patholo gist Method Time Signature Neutrophils % 78.7 % [facility]ORY Neutr Abs (ANC) 7.94 (H) 1.70 - [facility] 6.10 [facility] x10(3)/[facility] LABORATORY Lymphocytes % 8.8 % [facility]ORY Lymphocytes Abs 0.9 0.9 - 3.2 [facility] x10(3)/[facility] LABORATORY Monocytes % 7.8 % [facility]ORY Monocyte Abs 0.8 0.3 - 0.9 [facility] x10(3)/[facility] LABORATORY Eosinophils % 3.9 % [facility]ORY Eosinophils Abs 0.4 0.0 - 0.4 [facility] x10(3)/[facility] LABORATORY Basophils % 0.3 % [facility]ATORY Basophils Abs 0.0 0.0 - 0.1 [facility] x10(3)/[facility] LABORATORY Immature Gran % 0.50 % [place] [...] Address City/State/[place] [address] (ABNORMAL) Hemogram (08/12/2017 6:29 AM EST) Analysis Performed At Patho logist Time Signature WBC 10.1 (H) 4.0 - 9.5 [facility] x10(3)/[facility] LABORATORY RBC 3.02 (L) 4.58 - [facility] 5.54 [facility] x10(6)/[facility] LABORATORY Hemoglobin 8.7 (L) 13.7 - [facility] 16.5 gm/dL [facility] Hematocrit 28.1 (L) 40.5 - [facility] 48.5 % [facility] MCV 93.0 82.9 - [facility] 93.[address] [facility] LABORATORY MCH 28.8 27.5 - [facility] 32.1 pg [facility] MCHC 31.0 (L) 32.0 - [facility] 35.7 gm/dL [facility] Platelets 223 145 - 357 [facility] x10(3)/[facility] LABORATORY RDWSD 56.1 (H) 36.0 - [facility] R[facility] 45.[address] [facility] LABORATORY RDWCV 16.4 (H) 11.4 - [facility] 13.8 % [facility] MPV 9.0 7.6 - 12.9 [facility] LABORATORY nRBC % Auto 0.0 % [facility] LABORATORY nRBC Abs Auto 0.000 0.000 - [place] RYAN 0.000 [facility] x10(3)/[facility] LABORATORY Specimen Anatomical Collection Method Collection Time Receive d Time (Source) Location / / Volume Laterality Blood specimen 08/12/2017 6:29 AM 018 6:38 (specimen) EST AM EST Resulting Agency Comment Spec In Lab Yonathan Smith MD HEMATOLOGY ORDERABLES Performing Organization Address City/[facility]/[place] [address] (ABNORMAL) Prothrombin Time (08/12/2017 6:29 AM EST) athologist Signature PT 16.1 (H) 11.8 - 14.0 [facility] [...] Organization Address City/State/[place] [address] (ABNORMAL) Basic Metabolic Panel (non-fasting) (08/12/2017 6:29 AM EST) athologist Signature Glucose Lvl 151 65 - 199 [facility] mg/dL [facility] Comment: Diabetes: >=200 [...] [facility] Estimated GFR >60 >=60 [facility] Comment: The reported eGFR should be multiplied b y 1.2 for patients. The MDRD is not an appropriate measure o f renal function for patients with body mass extremes or in patients with acute kidney failure. http://BombBomb/DHnkdep http://BombBomb/DHMCnkf Specimen Anatomical Collection Method Collection Time Receive d Time (Source) Location / / Volume Laterality Blood specimen 08/12/2017 6:29 AM 018 6:38 (specimen) EST AM EST Resulting Agency Comment Spec In Lab Yonathan Smith MD CHEMISTRY ORDERABLES Performing Organization Address City/[facility]/[place] [address] POCT Glucose (08/12/2017 4:08 AM EST) athologist Signature POC Glucose 181 65 - 199 [facility] Comment: Supplemental ranges: <140 mg/dL before meals <180 mg/dL all other times of the day Specimen Anatomical Collection Method Collection Time Receive d Time (Source) Location / / Volume Laterality Blood specimen 08/12/2017 4:08 AM 018 4:08 (specimen) EST AM EST Yonathan Smith MD POINT OF CARE TEST ORDERABLE S Performing Organization Address City/[facility]/[place] [address] (ABNORMAL) POCT Glucose (08/12/2017 12:17 AM EST) athologist Signature POC Glucose 221 (H) 65 - 199 [facility] Comment: Supplemental ranges: <140 mg/dL before meals <180 mg/dL all other times of the day Specimen Anatomical Collection Method Collection Time Receive d Time (Source) Location / / Volume Laterality Blood specimen 08/12/2017 12:17 8 (specimen) AM EST 12:17 AM EST Yonathan Smith MD POINT OF CARE TEST ORDERABLE S Performing Organization Address City/[facility]/[place] [address] (ABNORMAL) POCT Glucose (08/11/2017 8:52 PM EST) athologist Signature POC Glucose 221 (H) 65 - 199 [facility] RYAN mg/dL [facility] Comment: Supplemental ranges: <140 mg/dL before meals <180 mg/dL all other times of the day Specimen Anatomical Collection Method Collection Time Receive d Time (Source) Location / / Volume Laterality Blood specimen 08/11/2017 8:52 PM 018 8:52 (specimen) EST PM EST Yonathan Smith MD POINT OF CARE TEST ORDERABLE S Performing Organization Address City/[facility]/[place] [address] POCT Glucose (08/11/2017 5:59 PM EST) athologist Signature POC Glucose 169 65 - 199 [facility] RYAN mg/dL [facility] Comment: Supplemental ranges: <140 mg/dL before meals <180 mg/dL all other times of the day Specimen Anatomical Collection Method Collection Time Receive d Time (Source) Location / / Volume Laterality Blood specimen 08/11/2017 5:59 PM 018 5:59 (specimen) EST PM EST Yonathan Smith MD POINT OF CARE TEST ORDERABLE S Performing Organization Address City/State/[place] [address] (ABNORMAL) POCT Glucose (08/11/2017 4:08 PM EST) athologist Signature POC Glucose 240 (H) 65 - 199 [facility] RYAN mg/dL [facility] Comment: Supplemental ranges: <140 mg/dL before meals <180 mg/dL all other times of the day Specimen Anatomical Collection Method Collection Time Receive d Time (Source) Location / / Volume Laterality Blood specimen 08/11/2017 4:08 PM 018 4:08 (specimen) EST PM EST Yonathan Smith MD POINT OF CARE TEST ORDERABLE S Performing Organization Address City/[facility]/ZIP Code Phon e Number [address] POCT Glucose (08/11/2017 12:04 PM EST) athologist Signature POC Glucose 182 65 - 199 [facility]dL [facility] Comment: Supplemental ranges: <140 mg/dL before meals <180 mg/dL all other times of the day Specimen Anatomical Collection Method Collection Time Receive d Time (Source) Location / / Volume Laterality Blood specimen 08/11/2017 12:04 8 (specimen) PM EST 12:04 PM EST Yonathan Smith MD POINT OF CARE TEST ORDERABLE S Performing Organization Address City/[facility]/ZIP Code Phon e Number [address] POCT Glucose (08/11/2017 7:31 AM EST) athologist Signature POC Glucose 156 65 - 199 [facility]dL [facility] Comment: Supplemental ranges: <140 mg/dL before meals <180 mg/dL all other times of the day Specimen Anatomical Collection Method Collection Time Receive d Time (Source) Location / / Volume Laterality Blood specimen 08/11/2017 7:31 AM 018 7:31 (specimen) EST AM EST Yonathan Smith MD POINT OF CARE TEST ORDERABLE S Performing Organization Address City/[facility]/ZIP Code Phon e Number [address] (ABNORMAL) Differential, Automated (08/11/2017 6:16 AM EST) [facility] Time Signature Neutrophils % 83.7 % [facility]ATORY Neutr Abs (ANC) 10.76 (H) 1.70 - [facility] 6.10 [facility] x10(3)/[facility] LABORATORY Lymphocytes % 6.0 % [facility]ORY Lymphocytes Abs 0.8 (L) 0.9 - 3.2 [facility] x10(3)/[facility] LABORATORY Monocytes % 7.5 % [facility]ORY Monocyte Abs 1.0 (H) 0.3 - 0.9 [facility] x10(3)/[facility] LABORATORY Eosinophils % 2.0 % [facility]ORY Eosinophils Abs 0.3 0.0 - 0.4 [facility] x10(3)/[facility] LABORATORY Basophils % 0.3 % [facility] Basophils Abs 0.0 0.0 - 0.1 [facility] x10(3)/[facility] LABORATORY Immature Gran % 0.50 % [place] [...] Address City/State/[place] [address] (ABNORMAL) Hemogram (08/11/2017 6:16 AM EST) Analysis Performed At Patho logist Time Signature WBC 12.9 (H) 4.0 - 9.5 [facility] x10(3)/[facility] LABORATORY RBC 3.28 (L) 4.58 - [facility] 5.54 [facility] x10(6)/[facility] LABORATORY Hemoglobin 9.5 (L) 13.7 - [facility] RYAN 16.5 gm/dL [facility] Hematocrit 29.8 (L) 40.5 - [facility] DAVIS 48.5 % [facility] MCV 90.9 82.9 - [facility] 93.[address] [facility] LABORATORY MCH 29.0 27.5 - [facility] OLIVASCK 32.1 pg [facility] MCHC 31.9 (L) 32.0 - [facility] DAVIS 35.7 gm/dL [facility] Platelets 236 145 - 357 [facility] x10(3)/[facility] LABORATORY RDWSD 53.5 (H) 36.0 - [facility] DAVIS 45.[address] [facility] LABORATORY RDWCV 16.3 (H) 11.4 - [facility] 13.8 % [facility] MPV 8.8 7.6 - 12.9 [facility] LABORATORY nRBC % Auto 0.0 % [facility] LABORATORY nRBC Abs Auto 0.000 0.000 - [facility] 0.000 [facility] x10(3)/[facility] LABORATORY Specimen Anatomical Collection Method Collection Time Receive d Time (Source) Location / / Volume Laterality Blood specimen 08/11/2017 6:16 AM 018 6:24 (specimen) EST AM EST Resulting Agency Comment Spec In Lab Yonathan Smith MD HEMATOLOGY ORDERABLES Performing Organization Address City/State/[place] [address] (ABNORMAL) Prothrombin Time (08/11/2017 6:16 AM EST) P athologist Signature PT 15.5 (H) 11.8 - 14.0 [facility] [...] Address City/State/[place] [address] Basic Metabolic Panel (non-fasting) (08/11/2017 6:16 AM EST) P athologist Signature Glucose Lvl 139 65 - 199 [facility] mg/dL [facility] Comment: Diabetes: >=200 [...] [facility] Estimated GFR >60 >=60 [facility] Comment: The reported eGFR should be multiplied b y 1.2 for patients. The MDRD is not an appropriate measure o f renal function for patients with body mass extremes or in patients with acute kidney failure. http://ZapMe.MobileHandshake/DHnkdep http://BombBomb/DHMCnkf Specimen Anatomical Collection Method Collection Time Receive d Time (Source) Location / / Volume Laterality Blood specimen 08/11/2017 6:16 AM 018 6:24 (specimen) EST AM EST Resulting Agency Comment Spec In Lab Yonathan Smith MD CHEMISTRY ORDERABLES Performing Organization Address City/State/ZIP Code Phon e Number [address] POCT Glucose (08/11/2017 4:07 AM EST) athologist Signature POC Glucose 162 65 - 199 [facility] RYAN mg/dL [facility] Comment: Supplemental ranges: <140 mg/dL before meals <180 mg/dL all other times of the day Specimen Anatomical Collection Method Collection Time Receive d Time (Source) Location / / Volume Laterality Blood specimen 08/11/2017 4:07 AM 018 4:07 (specimen) EST AM EST Yonathan Smith MD POINT OF CARE TEST ORDERABLE S Performing Organization Address City/[facility]/ZIP Code Phon e Number [address] POCT Glucose (08/10/2017 11:59 PM EST) athologist Signature POC Glucose 166 65 - 199 [facility] RYAN mg/dL [facility] Comment: Supplemental ranges: <140 mg/dL before meals <180 mg/dL all other times of the day Specimen Anatomical Collection Method Collection Time Receive d Time (Source) Location / / Volume Laterality Blood specimen 08/10/2017 11:59 8 (specimen) PM EST 11:59 PM EST Yonathan Smith MD POINT OF CARE TEST ORDERABLE S Performing Organization Address City/State/ZIP Code Phon e Number [address] POCT Glucose (08/10/2017 8:12 PM EST) athologist Signature POC Glucose 156 65 - 199 [facility] RYAN mg/dL [facility] Comment: Supplemental ranges: <140 mg/dL before meals <180 mg/dL all other times of the day Specimen Anatomical Collection Method Collection Time Receive d Time (Source) Location / / Volume Laterality Blood specimen 08/10/2017 8:12 PM 018 8:12 (specimen) EST PM EST Yonathan Smith MD POINT OF CARE TEST ORDERABLE S Performing Organization Address City/State/ZIP Code Phon e Number [place] [phone]OS[address]ORY Drive (ABNORMAL) POCT Glucose (08/10/2017 4:42 PM EST) P athologist Signature POC Glucose 211 (H) 65 - 199 [facility] Comment: Supplemental ranges: <140 mg/dL before meals <180 mg/dL all other times of the day Specimen Anatomical Collection Method Collection Time Receive d Time (Source) Location / / Volume Laterality Blood specimen 08/10/2017 4:42 PM 018 4:42 (specimen) EST PM EST Yonathan Smith MD POINT OF CARE TEST ORDERABLE S Performing Organization Address City/State/ZIP Code Phon e Number [address] (ABNORMAL) Differential, Automated (08/10/2017 2:30 PM EST) Patholo gist Method Time Signature Neutrophils % 87.6 % [facility] LABORATORY Neutr Abs (ANC) 9.90 (H) 1.70 - [facility] 6.10 [facility] x10(3)/[facility] L LABORATORY Lymphocytes % 4.3 % [facility]OR[facility]ORY Lymphocytes Abs 0.5 (L) 0.9 - 3.2 [facility] x10(3)/[facility] LABORATORY Monocytes % 6.0 % [facility]ORY Monocyte Abs 0.7 0.3 - 0.9 [facility] x10(3)/[facility] LABORATORY Eosinophils % 1.1 % [facility]ORY Eosinophils Abs 0.1 0.0 - 0.4 [facility] x10(3)/[facility] LABORATORY Basophils % 0.4 % [facility] Basophils Abs 0.0 0.0 - 0.1 [facility] x10(3)/[facility] LABORATORY Immature Gran % 0.60 % [place] [...] Address City/State/[place] [address] (ABNORMAL) Hemogram (08/10/2017 2:30 PM EST) Analysis Performed At Patho logist Time Signature WBC 11.3 (H) 4.0 - 9.5 [facility] x10(3)/[facility] LABORATORY RBC 3.13 (L) 4.58 - [facility] 5.54 [facility] x10(6)/[facility] LABORATORY Hemoglobin 8.9 (L) 13.7 - [facility] 16.[facility] gm/dL [facility] Hematocrit 28.4 (L) 40.5 - [facility] 48.5 % [facility] MCV 90.7 82.9 - [facility] 93.[address] [facility] LABORATORY MCH 28.4 27.5 - [facility] 32.1 pg [facility] MCHC 31.3 (L) 32.0 - [facility] 35.7 gm/dL [facility] Platelets 213 145 - 357 [facility] x10(3)/[facility] LABORATORY RDWSD 53.7 (H) 36.0 - [facility] R[facility] 45.[address] [facility] LABORATORY RDWCV 16.4 (H) 11.4 - [facility] 13.8 % [facility] MPV 8.9 7.6 - 12.9 [facility] LABORATORY nRBC % Auto 0.0 % [facility] LABORATORY nRBC Abs Auto 0.000 0.000 - [facility] [employer] 0.000 [facility] x10(3)/[facility] LABORATORY Specimen Anatomical Collection Method Collection Time Receive d Time (Source) Location / / Volume Laterality Blood specimen 08/10/2017 2:30 PM 018 2:48 (specimen) EST PM EST Resulting Agency Comment Spec In Lab Yonathan Smith MD HEMATOLOGY ORDERABLES Performing Organization Address City/[facility]/ZIP Code Phon e Number [address] (ABNORMAL) POCT Glucose (08/10/2017 1:50 PM EST) athologist Signature POC Glucose 243 (H) 65 - 199 [facility]dL [facility] Comment: Supplemental ranges: <140 mg/dL before meals <180 mg/dL all other times of the day Specimen Anatomical Collection Method Collection Time Receive d Time (Source) Location / / Volume Laterality Blood specimen 08/10/2017 1:50 PM 018 1:50 (specimen) EST PM EST Yonathan Smith MD POINT OF CARE TEST ORDERABLE S Performing Organization Address City/[facility]/ZIP Code Phon e Number [address] POCT Glucose (08/10/2017 11:21 AM EST) athologist Signature POC Glucose 156 65 - 199 [facility]/dL [facility] Comment: Supplemental ranges: <140 mg/dL before meals <180 mg/dL all other times of the day Specimen Anatomical Collection Method Collection Time Receive d Time (Source) Location / / Volume Laterality Blood specimen 08/10/2017 11:21 8 (specimen) AM EST 11:21 AM EST Yonathan Smith MD POINT OF CARE TEST ORDERABLE S Performing Organization Address City/[facility]/ZIP Code Phon e Number [address] (ABNORMAL) Differential, Automated (08/10/2017 10:28 AM EST) [facility] Time Signature Neutrophils % 85.3 % [facility] LABORATORY Neutr Abs (ANC) 9.43 (H) 1.70 - [facility] 6.10 [facility] x10(3)/[facility] L LABORATORY Lymphocytes % 5.5 % [facility] LABORATORY Lymphocytes Abs 0.6 (L) 0.9 - 3.2 [facility] x10(3)/[facility] LABORATORY Monocytes % 5.9 % [facility] LABORATORY Monocyte Abs 0.6 0.3 - 0.9 [facility] x10(3)/[facility] LABORATORY Eosinophils % 2.1 % [facility] LABORATORY Eosinophils Abs 0.2 0.0 - 0.4 [facility] x10(3)/[facility] LABORATORY Basophils % 0.4 % [facility] LABORATORY Basophils Abs 0.0 0.0 - 0.1 [facility] x10(3)/[facility] LABORATORY Immature Gran % 0.80 % [place] [...] Address City/State/Z[place] [address] (ABNORMAL) Hemogram (08/10/2017 10:28 AM EST) Analysis Performed At Patho logist Time Signature WBC 11.0 (H) 4.0 - 9.5 [facility] x10(3)/[facility] LABORATORY RBC 3.02 (L) 4.58 - [facility] 5.54 [facility] x10(6)/[facility] LABORATORY Hemoglobin 8.8 (L) 13.7 - [facility] 16.5 gm/dL [facility] LABORATORY Hematocrit 28.1 (L) 40.5 - BARBARA DAVIS 48.5 % [facility] LABORATORY MCV 93.0 82.9 - BARBAR[place] DAVIS 93.[address] [facility] LABORATORY MCH 29.1 27.5 - BARBARA OLIVASCK 32.1 pg [facility] LABORATORY MCHC 31.3 (L) 32.0 - [place] DAVIS 35.7 gm/dL [facility] LABORATORY Platelets 207 145 - 357 BARBARA ZHAORYAN x10(3)/[facility] LABORATORY RDWSD 55.3 (H) 36.0 - BARBAR[place] DAVIS 45.[address] [facility] LABORATORY RDWCV 16.4 (H) 11.4 - BAR[place] RYAN 13.8 % [facility] LAB[facility] MPV 9.0 7.6 - 12.9 [facility] LABORATORY nRBC % Auto 0.0 % [facility] nRBC Abs Auto 0.000 0.000 - BARBAR[place] DAVIS 0.000 [facility] x10(3)/[facility] LABORATORY Specimen Anatomical Collection Method Collection Time Receive d Time (Source) Location / / Volume Laterality Blood specimen 08/10/2017 10:28 8 (specimen) AM EST 10:35 AM EST Resulting Agency Comment Spec In Lab Yonathan Smith MD HEMATOLOGY ORDERABLES Performing Organization Address City/State/[place] [address] VS Angiogram/intervention (vascular) (08/10/2017 [...] 2.5x80 5. Completion RLE angiogram 6. L TRIAL MANAGER angiogram 7. 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 L TRIAL MANAGER access in the distal L TRIAL MANAGER. - Closure device: Mynx Technical Procedure: [...] for a 45cm 5F Destination. V18 and [place] a nd QuickCross catheters were used to [...] bifurcation. Access appeared in the distal R TRIAL MANAGER. Closure and sheath removal was performed [...] 2.5x80 5. Completion RLE angiogram 6. L TRIAL MANAGER angiogram 7. 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 L TRIAL MANAGER access in the distal L TRIAL MANAGER. - Closure device: Mynx Technical Procedure: [...] for a 45cm 5F Destination. V18 and [place] a nd QuickCross catheters were used to [...] bifurcation. Access appeared in the distal R TRIAL MANAGER. Closure and sheath removal was performed [...] (ABNORMAL) Differential, Automated (08/10/2017 5:50 AM EST) [facility] Method Time Signature Neutrophils % 80.1 % [facility] LABORATORY Neutr Abs (ANC) 9.01 (H) 1.70 - [facility] 6.10 [facility] x10(3)/[facility] LABORATORY Lymphocytes % 8.8 % [facility] LABORATORY Lymphocytes Abs 1.0 0.9 - 3.2 [facility] x10(3)/[facility] LABORATORY Monocytes % 8.3 % [facility] LABORATORY Monocyte Abs 0.9 0.3 - 0.9 [facility] x10(3)/[facility] LABORATORY Eosinophils % 2.0 % [facility] LABORATORY Eosinophils Abs 0.2 0.0 - 0.4 [facility] x10(3)/[facility] LABORATORY Basophils % 0.4 % [facility] LABORATORY Basophils Abs 0.0 0.0 - 0.1 [facility] x10(3)/[facility] LABORATORY Immature Gran % 0.40 % [place] [...] Organization Address City/State/[place] [address] (ABNORMAL) Hemogram (08/10/2017 5:50 AM EST) Analysis Performed At Patho logist Time Signature WBC 11.3 (H) 4.0 - 9.5 [facility] x10(3)/[facility] LABORATORY RBC 3.15 (L) 4.58 - BARBAR[place] RYAN 5.54 [facility] x10(6)/[facility] LABORATORY Hemoglobin 8.9 (L) 13.7 - [facility] 16.5 gm/dL [facility] Hematocrit 29.0 (L) 40.5 - [facility] RYAN 48.5 % [facility] LABOR[facility]ORY MCV 92.1 82.9 - [facility] RYAN 93.[address] [facility] LABORATORY MCH 28.3 27.5 - [facility] RYAN 32.1 pg [facility] LAB[facility] MCHC 30.7 (L) 32.0 - [facility] RYAN 35.7 gm/dL [facility] LAB[facility] Platelets 231 145 - 357 [facility] x[facility](3[facility] RDWSD 53.9 (H) 36.0 - [facility] RYAN 45.[address] [facility] LABORATORY RDWCV 16.2 (H) 11.4 - [facility] RYAN 13.8 % [facility] LABORATORY MPV 8.7 7.6 - 12.9 [facility] LABORATORY nRBC % Auto 0.0 % [facility] LABORATORY nRBC Abs Auto 0.000 0.000 - [facility] 0.000 [facility] x10(3)/[facility] LABORATORY Specimen Anatomical Collection Method Collection Time Receive d Time (Source) Location / / Volume Laterality Blood specimen 08/10/2017 5:50 AM 018 5:59 (specimen) EST AM EST Resulting Agency Comment Spec In Lab Yonathan Smith MD HEMATOLOGY ORDERABLES Performing Organization Address City/State/Z[place] [address] (ABNORMAL) Basic Metabolic Panel (non-fasting) (08/10/2017 5:50 AM EST) P athologist Signature Glucose Lvl 135 65 - 199 [facility] mg/dL [facility] LABOR[facility] Comment: Diabetes: >=200 [...] [facility] Estimated GFR >60 >=60 [facility] LABORATORY Comment: The reported eGFR should be multiplied b y 1.2 for patients. The MDRD is not an appropriate measure o f renal function for patients with body mass extremes or in patients with acute kidney failure. http://ZapMe.MobileHandshake/DHnkdep http://ZapMe.MobileHandshake/DHMCnkf Specimen Anatomical Collection Method Collection Time Receive d Time (Source) Location / / Volume Laterality Blood specimen 08/10/2017 5:50 AM 018 5:59 (specimen) EST AM EST Resulting Agency Comment Spec In Lab Yonathan Smith MD CHEMISTRY ORDERABLES Performing Organization Address [facility] [place] [address] (ABNORMAL) Prothrombin Time (08/10/2017 5:50 AM EST) athologist Signature PT 16.8 (H) 11.8 - 14.0 [facility] LABORATORY INR 1.4 (H) 0.9 - [...] Smith MD HEMATOLOGY ORDERABLES Performing Organization Address City/[facility] [place] [address] (ABNORMAL) POCT Glucose (08/10/2017 4:01 AM EST) athologist Signature POC Glucose 206 (H) 65 - 199 [facility] mg/dL [facility] LABOR[facility] Comment: Supplemental ranges: <140 mg/dL before meals <180 mg/dL all other times of the day Specimen Anatomical Collection Method Collection Time Receive d Time (Source) Location / / Volume Laterality Blood specimen 08/10/2017 4:01 AM 018 4:01 (specimen) EST AM EST Yonathan Smith MD POINT OF CARE TEST ORDERABLE S Performing Organization Address City/State/ZIP Code Phon e Number [address] POCT Glucose (08/10/2017 2:01 AM EST) athologist Signature POC Glucose 188 65 - 199 BARBARA ZHAORYAN mg/dL [facility] LABOR[facility] Comment: Supplemental ranges: <140 mg/dL before meals <180 mg/dL all other times of the day Specimen Anatomical Collection Method Collection Time Receive d Time (Source) Location / / Volume Laterality Blood specimen 08/10/2017 2:01 AM 018 2:01 (specimen) EST AM EST Yonathan Smith MD POINT OF CARE TEST ORDERABLE S Performing Organization Address City/[facility]/[place] [address] (ABNORMAL) POCT Glucose (08/09/2017 11:42 PM EST) athologist Signature POC Glucose 283 (H) 65 - 199 BARBARA ZHAORYAN mg/dL [facility] LAB[facility] Comment: Supplemental ranges: <140 mg/dL before meals <180 mg/dL all other times of the day Specimen Anatomical Collection Method Collection Time Receive d Time (Source) Location / / Volume Laterality Blood specimen 08/09/2017 11:42 8 (specimen) PM EST 11:42 PM EST Yonathan Smith MD POINT OF CARE TEST ORDERABLE S Performing Organization Address City/State/[place] [address] POCT Glucose (08/09/2017 8:55 PM EST) athologist Signature POC Glucose 182 65 - 199 BARBARA ZHAORYAN mg/dL [facility] LAB[facility] Comment: Supplemental ranges: <140 mg/dL before meals <180 mg/dL all other times of the day Specimen Anatomical Collection Method Collection Time Receive d Time (Source) Location / / Volume Laterality Blood specimen 08/09/2017 8:55 PM 018 8:55 (specimen) EST PM EST Yonathan Smith MD POINT OF CARE TEST ORDERABLE S Performing Organization Address City/[facility]/[place] [address] (ABNORMAL) APTT (08/09/2017 6:42 [...] Smith MD HEMATOLOGY ORDERABLES Performing Organization Address City/[facility]/[place] [address] POCT Glucose (08/09/2017 4:41 PM EST) athologist Signature POC Glucose 195 65 - 199 [facility] mg/dL [facility] Comment: Supplemental ranges: <140 mg/dL before meals <180 mg/dL all other times of the day Specimen Anatomical Collection Method Collection Time Receive d Time (Source) Location / / Volume Laterality Blood specimen 08/09/2017 4:41 PM 018 4:41 (specimen) EST PM EST Yonathan Smith MD POINT OF CARE TEST ORDERABLE S Performing Organization Address City/[facility]/[place] [address] POCT Glucose (08/09/2017 12:29 PM EST) athologist Signature POC Glucose 140 65 - 199 [facility] mg/dL [facility] Comment: Supplemental ranges: <140 mg/dL before meals <180 mg/dL all other times of the day Specimen Anatomical Collection Method Collection Time Receive d Time (Source) Location / / Volume Laterality Blood specimen 08/09/2017 12:29 8 (specimen) PM EST 12:29 PM EST Yonathan Smith MD POINT OF CARE TEST ORDERABLE S Performing Organization Address [facility]/ZIP Code Phon e Number [address] POCT Glucose (08/09/2017 9:59 AM EST) P athologist Signature POC Glucose 135 65 - 199 [facility] mg/dL [facility] Comment: Supplemental ranges: <140 mg/dL before meals <180 mg/dL all other times of the day Specimen Anatomical Collection Method Collection Time Receive d Time (Source) Location / / Volume Laterality Blood specimen 08/09/2017 9:59 AM 018 9:59 (specimen) EST AM EST Yonathan Smith MD POINT OF CARE TEST ORDERABLE S Performing Organization Address [facility]/ZIP Code Phon e Number [address] Specimen to Pathology (08/09/2017 [...] MD PATHOLOGY/CYTOLOGY ORDERABLE S Performing Organization Address City/[facility]/[place] [address] Surgical Pathology Report (08/09/2017 8:40 AM EST) Component Value Ref Test Analysis Performed At Patholo gist Range Method Time Signature Surgical [id number] ? Location: [facility]; [facility]; A [facility] Report The signing pathologist has (i) [...] Henrique Flower Verified: ??08/13/2017 ?Pathologist Performed at: ??-[facility] Dept. of Pathology, [place], [place] CLINICAL INFORMATION Specimen Submitted: A - [...] Address City/State/ZIP [place] [address] Anaerobic Culture (08/09/2017 8:30 AM EST) [facility] B[employer]tag Method Time Signature Anaerobic No anaerobic [facility] Culture organisms [facility] LABORATORY Specimen [...] - GENERAL ORDER ROBSON Performing Organization Address City/[facility]/[place] [address] (ABNORMAL) Abscess/Wound Aspirate Culture (08/09/2017 8:30 AM EST) [facility] Method Time Signature Abscess/Wound Moderate mixed [facility] Aspirate bacterial [place] Culture morphotypes [facility] normal LABORATORY cutaneous leroy (A) Gram Stain Rare White Blood Cells [place]BAR[place] Few Gram Positive Cocci in pairs [place] () [facility] LAB[facility] Organism Gram Positive [place] Cocci in pairs [place] () [facility] LAB[facility] Specimen Anatomical Collection Method [...] - GENERAL ORDER ROBSON Performing Organization Address City/[facility]/ZIP Code Phon e Number [place] [id number] HOSPITAL LAB[address]ORY Drive POCT Glucose (08/09/2017 4:28 AM EST) P athologist Signature POC Glucose 128 65 - 199 [facility] mg/dL [facility] Comment: Supplemental ranges: <140 mg/dL before meals <180 mg/dL all other times of the day Specimen Anatomical Collection Method Collection Time Receive d Time (Source) Location / / Volume Laterality Blood specimen 08/09/2017 4:28 AM 018 4:28 (specimen) EST AM EST Yonathan Smith MD POINT OF CARE TEST ORDERABLE S Performing Organization Address City/State/[place] [address] ABORH Recheck Status (08/09/2017 1:10 AM EST) [facility] Method Time Signature ABORH Type Completed [facility] LABORATORY Specimen Anatomical Collection Method Collection Time Receive d Time (Source) Location / / Volume Laterality Blood specimen 08/09/2017 1:10 AM 018 1:35 (specimen) EST AM EST Resulting Agency Comment Spec In Lab Yonathan Smith MD BLOOD BANK ORDERABLES Performing Organization Address City/[facility]/[place] [address] Antibody screen (08/09/2017 1:10 AM EST) [facility] Method Time Signature Ab Screen Negative [facility] LABORATORY Expires at 08/12/2017 [facility] 2359 on: [facility] Specimen Anatomical Collection Method Collection Time Receive d Time (Source) Location / / Volume Laterality Blood specimen 08/09/2017 1:10 AM 018 1:35 (specimen) EST AM EST Resulting Agency Comment Spec In Lab Yonathan Smith MD BLOOD BANK ORDERABLES Performing Organization Address City/[facility]/[place] [address] ABO/Rh Typing (08/09/2017 1:10 AM EST) P athologist Signature ABORh Type O Pos [facility] LABORATORY Specimen Anatomical Collection Method Collection Time Receive d Time (Source) Location / / Volume Laterality Blood specimen 08/09/2017 1:10 AM 018 1:35 (specimen) EST AM EST Resulting Agency Comment Spec In Lab Yonathan Smith MD BLOOD BANK ORDERABLES Performing Organization Address City/[facility]/[place] [address] (ABNORMAL) APTT (08/09/2017 1:10 [...] Address City/State/[place] [address] (ABNORMAL) Differential, Automated (08/09/2017 1:10 AM EST) [facility] gist Method Time Signature Neutrophils % 76.2 % [facility] LABORATORY Neutr Abs (ANC) 8.59 (H) 1.70 - [facility] 6.10 [facility] x10(3)/[facility] LABORATORY Lymphocytes % 11.0 % [facility] LABORATORY Lymphocytes Abs 1.2 0.9 - 3.2 [facility] x10(3)/[facility] LABORATORY Monocytes % 8.4 % [facility] LABORATORY Monocyte Abs 1.0 (H) 0.3 - 0.9 [facility] x10(3)/[facility] LABORATORY Eosinophils % 3.5 % [facility] LABORATORY Eosinophils Abs 0.4 0.0 - 0.4 [facility] x10(3)/[facility] LABORATORY Basophils % 0.5 % [facility] LABORATORY Basophils Abs 0.1 0.0 - 0.1 [facility] x10(3)/[facility] LABORATORY Immature Gran % 0.40 % [place] [...] Address City/State/[place] [address] (ABNORMAL) Hemogram (08/09/2017 1:10 AM EST) Analysis Performed At Patho logist Time Signature WBC 11.3 (H) 4.0 - 9.5 [facility] x10(3)/[facility] LABORATORY RBC 3.47 (L) 4.58 - [facility] 5.54 [facility] x10(6)/[facility] LABORATORY Hemoglobin 10.0 (L) 13.7 - [facility] 16.5 gm/dL [facility] Hematocrit 31.9 (L) 40.5 - [facility] 48.5 % [facility] MCV 91.9 82.9 - [facility] 93.[address] [facility] LABORATORY MCH 28.8 27.5 - [facility] RYAN 32.1 pg [facility] MCHC 31.3 (L) 32.0 - [facility] 35.7 gm/dL [facility] Platelets 234 145 - 357 [facility] x10(3)/[facility] LABORATORY RDWSD 54.0 (H) 36.0 - [facility] RYAN 45.[address] [facility] LABORATORY RDWCV 16.2 (H) 11.4 - [facility] 13.8 % [facility] LAB[facility] MPV 8.7 7.6 - 12.9 [facility] LABORATORY nRBC % Auto 0.0 % [facility] LABORATORY nRBC Abs Auto 0.000 0.000 - [place]BARA RYAN 0.000 [facility] x10(3)/[facility] LABORATORY Specimen Anatomical Collection Method Collection Time Receive d Time (Source) Location / / Volume Laterality Blood specimen 08/09/2017 1:10 AM 018 1:19 (specimen) EST AM EST Resulting Agency Comment Spec In Lab Yonathan Smith MD HEMATOLOGY ORDERABLES Performing Organization Address [facility] [place] [address] (ABNORMAL) Prothrombin Time (08/09/2017 1:10 AM EST) athologist Signature PT 16.0 (H) 11.8 - 14.0 [facility] [...] Smith MD HEMATOLOGY ORDERABLES Performing Organization Address [facility] [place] [address] (ABNORMAL) Basic Metabolic Panel (non-fasting) (08/09/2017 1:10 AM EST) athologist Signature Glucose Lvl 108 65 - 199 [facility] mg/dL [facility] Comment: Diabetes: >=200 [...] or in patients with acute kidney failure. [email or web address]/DHnkdep [email or web address]/DHMCnkf Specimen Anatomical Collection Method Collection Time Receive d Time (Source) Location / / Volume Laterality Blood specimen 08/09/2017 1:10 AM 018 1:19 (specimen) EST AM EST Resulting Agency Comment Spec In Lab Yonathan Smith MD CHEMISTRY ORDERABLES Performing Organization Address City/State/ZIP Code Phon e Number [address] POCT Glucose (08/09/2017 12:05 AM EST) athologist Signature POC Glucose 128 65 - 199 [facility] mg/dL [facility] Comment: Supplemental ranges: <140 mg/dL before meals <180 mg/dL all other times of the day Specimen Anatomical Collection Method Collection Time Receive d Time (Source) Location / / Volume Laterality Blood specimen 08/09/2017 12:05 8 (specimen) AM EST 12:05 AM EST Yonathan Smith MD POINT OF CARE TEST ORDERABLE S Performing Organization Address City/State/[place] [address] (ABNORMAL) POCT Glucose (08/08/2017 7:36 PM EST) athologist Signature POC Glucose 215 (H) 65 - 199 [facility] mg/dL [facility] Comment: Supplemental ranges: <140 mg/dL before meals <180 mg/dL all other times of the day Specimen Anatomical Collection Method Collection Time Receive d Time (Source) Location / / Volume Laterality Blood specimen 08/08/2017 7:36 PM 018 7:36 (specimen) EST PM EST Yonathan Smith MD POINT OF CARE TEST ORDERABLE S Performing Organization Address City/[facility]/[place] [address] (ABNORMAL) POCT Glucose (08/08/2017 6:23 PM EST) athologist Signature POC Glucose 216 (H) 65 - 199 [facility] mg/dL [facility] Comment: Supplemental ranges: <140 mg/dL before meals <180 mg/dL all other times of the day Specimen Anatomical Collection Method Collection Time Receive d Time (Source) Location / / Volume Laterality Blood specimen 08/08/2017 6:23 PM 018 6:23 (specimen) EST PM EST Yonathan Smith MD POINT OF CARE TEST ORDERABLE S Performing Organization Address City/[facility]/[place] [address] (ABNORMAL) APTT (08/08/2017 6:00 [...] Smith MD HEMATOLOGY ORDERABLES Performing Organization Address City/[facility]/ZIP Code Phon [place] [address] POCT Glucose (08/08/2017 4:42 PM EST) athologist Signature POC Glucose 78 65 - 199 [facility] mg/dL [facility] Comment: Supplemental ranges: <140 mg/dL before meals <180 mg/dL all other times of the day Specimen Anatomical Collection Method Collection Time Receive d Time (Source) Location / / Volume Laterality Blood specimen 08/08/2017 4:42 PM 018 4:42 (specimen) EST PM EST Yonathan Smith MD POINT OF CARE TEST ORDERABLE S Performing Organization Address City/State/[place] [address] (ABNORMAL) POCT Glucose (08/08/2017 4:01 PM EST) athologist Signature POC Glucose 58 (L) 65 - 199 [facility] mg/dL [facility] Comment: Supplemental ranges: <140 mg/dL before meals <180 mg/dL all other times of the day Specimen Anatomical Collection Method Collection Time Receive d Time (Source) Location / / Volume Laterality Blood specimen 08/08/2017 4:01 PM 018 4:01 (specimen) EST PM EST Yonathan Smith MD POINT OF CARE TEST ORDERABLE S Performing Organization Address City/State/[place] [address] POCT Glucose (08/08/2017 11:51 AM EST) athologist Signature POC Glucose 90 65 - 199 [facility] mg/dL [facility] Comment: Supplemental ranges: <140 mg/dL before meals <180 mg/dL all other times of the day Specimen Anatomical Collection Method Collection Time Receive d Time (Source) Location / / Volume Laterality Blood specimen 08/08/2017 11:51 8 (specimen) AM EST 11:51 AM EST Yonathan Smith MD POINT OF CARE TEST ORDERABLE S Performing Organization Address City/State/[place] [address] (ABNORMAL) APTT (08/08/2017 10:27 [...] Smith MD HEMATOLOGY ORDERABLES Performing Organization Address City/[facility]/ZIP Code Phon e Number [address] POCT Glucose (08/08/2017 8:02 AM EST) athologist Signature POC Glucose 178 65 - 199 [facility] mg/dL [facility] Comment: Supplemental ranges: <140 mg/dL before meals <180 mg/dL all other times of the day Specimen Anatomical Collection Method Collection Time Receive d Time (Source) Location / / Volume Laterality Blood specimen 08/08/2017 8:02 AM 018 8:02 (specimen) EST AM EST Yonathan Smith MD POINT OF CARE TEST ORDERABLE S Performing Organization Address City/[facility]/[place] [address] (ABNORMAL) APTT (08/08/2017 4:51 AM EST) athologist Signature PTT >160 25 - 35 [facility] (Critical) sec [facility] Comment: Called by: HOWARD, [...] Address City/State/[place] [address] (ABNORMAL) Differential, Automated (08/08/2017 4:51 AM EST) [facility] gist Method Time Signature Neutrophils % 77.9 % [facility] LABORATORY Neutr Abs (ANC) 8.17 (H) 1.70 - [facility] 6.10 [facility] x10(3)/[facility] LABORATORY Lymphocytes % 10.3 % [facility] LABORATORY Lymphocytes Abs 1.1 0.9 - 3.2 [facility] x10(3)/[facility] LABORATORY Monocytes % 7.0 % [facility] LABORATORY Monocyte Abs 0.7 0.3 - 0.9 [facility] x10(3)/[facility] LABORATORY Eosinophils % 3.6 % [facility] LABORATORY Eosinophils Abs 0.4 0.0 - 0.4 [facility] x10(3)/[facility] LABORATORY Basophils % 0.5 % [facility] LABORATORY Basophils Abs 0.0 0.0 - 0.1 [facility] x10(3)/[facility] LABORATORY Immature Gran % 0.70 % [place] [...] Address City/State/ZIP Code Phon e Number [address] (ABNORMAL) Hemogram (08/08/2017 4:51 AM EST) Analysis Performed At Patho logist Time Signature WBC 10.5 (H) 4.0 - 9.5 [facility] x10(3[facility] LABORATORY RBC 3.27 (L) 4.58 - [place] 5.54 [facility] x10(6)/[facility] LABORATORY Hemoglobin 9.3 (L) 13.7 - [facility] 16.5 gm/dL [facility] Hematocrit 30.3 (L) 40.5 - [facility] 48.5 % [facility] MCV 92.7 82.9 - [facility] 93.[address] [facility] LABORATORY MCH 28.4 27.5 - [place] 32.1 pg [facility] MCHC 30.7 (L) 32.0 - [place] 35.7 gm/dL [facility] Platelets 252 145 - 357 [facility] x10(3)/[facility] LABORATORY RDWSD 54.6 (H) 36.0 - [place] 45.[address] [facility] LABORATORY RDWCV 16.2 (H) 11.4 - [facility] RYAN 13.8 % [facility] MPV 9.1 7.6 - 12.9 [facility] LABORATORY nRBC % Auto 0.0 % [facility] LABORATORY nRBC Abs Auto 0.000 0.000 - [place] 0.000 [facility] x10(3)/[facility] LABORATORY Specimen Anatomical Collection Method Collection Time Receive d Time (Source) Location / / Volume Laterality Blood specimen 08/08/2017 4:51 AM 018 5:14 (specimen) EST AM EST Resulting Agency Comment Spec In Lab Yonathan Smith MD HEMATOLOGY ORDERABLES Performing Organization Address City/State/[place] [address] (ABNORMAL) Prothrombin Time (08/08/2017 4:51 AM EST) athologist Signature PT 18.1 (H) 11.8 - 14.0 [facility] [...] Organization Address City/State/[place] [address] (ABNORMAL) Basic Metabolic Panel (non-fasting) (08/08/2017 4:51 AM EST) athologist Signature Glucose Lvl 229 (H) 65 - 199 [facility] mg/dL [facility] Comment: Diabetes: >=200 [...] or in patients with acute kidney failure. [email or web address] Specimen Anatomical Collection Method Collection Time Receive d Time (Source) Location / / Volume Laterality Blood specimen 08/08/2017 4:51 AM 018 5:14 (specimen) EST AM EST Resulting Agency Comment Spec In Lab Yonathan Smith MD CHEMISTRY ORDERABLES Performing Organization Address City/[facility]/ZIP Code Phon e Number [address] POCT Glucose (08/08/2017 4:20 AM EST) athologist Signature POC Glucose 193 65 - 199 [facility]dL [facility] Comment: Supplemental ranges: <140 mg/dL before meals <180 mg/dL all other times of the day Specimen Anatomical Collection Method Collection Time Receive d Time (Source) Location / / Volume Laterality Blood specimen 08/08/2017 4:20 AM 018 4:20 (specimen) EST AM EST Yonathan Smith MD POINT OF CARE TEST ORDERABLE S Performing Organization Address City/[facility]/ZIP Code Phon e Number [address] POCT Glucose (08/07/2017 11:11 PM EST) athologist Signature POC Glucose 124 65 - 199 [facility] mg/dL [facility] Comment: Supplemental ranges: <140 mg/dL before meals <180 mg/dL all other times of the day Specimen Anatomical Collection Method Collection Time Receive d Time (Source) Location / / Volume Laterality Blood specimen 08/07/2017 11:11 8 (specimen) PM EST 11:11 PM EST Yonathan Smith MD POINT OF CARE TEST ORDERABLE S Performing Organization Address City/[facility]/[place] [address] (ABNORMAL) APTT (08/07/2017 10:18 [...] Organization Address City/State/[place] [address] POCT Glucose (08/07/2017 8:10 PM EST) athologist Signature POC Glucose 140 65 - 199 [facility] mg/dL [facility] Comment: Supplemental ranges: <140 mg/dL before meals <180 mg/dL all other times of the day Specimen Anatomical Collection Method Collection Time Receive d Time (Source) Location / / Volume Laterality Blood specimen 08/07/2017 8:10 PM 018 8:10 (specimen) EST PM EST Yonathan Smith MD POINT OF CARE TEST ORDERABLE S Performing Organization Address City/State/[place] [address] POCT Glucose (08/07/2017 5:27 PM EST) athologist Signature POC Glucose 187 65 - 199 [facility] mg/dL [facility] Comment: Supplemental ranges: <140 mg/dL before meals <180 mg/dL all other times of the day Specimen Anatomical Collection Method Collection Time Receive d Time (Source) Location / / Volume Laterality Blood specimen 08/07/2017 5:27 PM 018 5:27 (specimen) EST PM EST Yonathan Smith MD POINT OF CARE TEST ORDERABLE S Performing Organization Address City/[facility]/[place] [address] POCT Glucose (08/07/2017 3:29 PM EST) athologist Signature POC Glucose 86 65 - 199 [facility] mg/dL [facility] Comment: Supplemental ranges: <140 mg/dL before meals <180 mg/dL all other times of the day Specimen Anatomical Collection Method Collection Time Receive d Time (Source) Location / / Volume Laterality Blood specimen 08/07/2017 3:29 PM 018 3:29 (specimen) EST PM EST Yonathan Smith MD POINT OF CARE TEST ORDERABLE S Performing Organization Address [facility] [place] [address] (ABNORMAL) APTT (08/07/2017 2:50 PM EST) athologist [facility] PTT 60 (H) 25 - 35 [...] Smith MD HEMATOLOGY ORDERABLES Performing Organization Address City/[facility]/ZIP [facility] [place] [address] (ABNORMAL) POCT Glucose (08/07/2017 2:23 PM EST) athologist Signature POC Glucose 55 (L) 65 - 199 [place] mg/dL [facility] Comment: Supplemental ranges: <140 mg/dL before meals <180 mg/dL all other times of the day Specimen Anatomical Collection Method Collection Time Receive d Time (Source) Location / / Volume Laterality Blood specimen 08/07/2017 2:23 PM 018 2:23 (specimen) EST PM EST Yonathan Smith MD POINT OF CARE TEST ORDERABLE S Performing Organization Address City/State/ZIP Code Phon e Number [address] POCT Glucose (08/07/2017 12:08 PM EST) P athologist Signature POC Glucose 77 65 - 199 [facility] mg/dL [facility] Comment: Supplemental ranges: <140 mg/dL before meals <180 mg/dL all other times of the day Specimen Anatomical Collection Method Collection Time Receive d Time (Source) Location / / Volume Laterality Blood specimen 08/07/2017 12:08 8 (specimen) PM EST 12:08 PM EST Yonathan Smith MD POINT OF CARE TEST ORDERABLE S Performing Organization Address City/State/[place] [address] (ABNORMAL) Differential, Automated (08/07/2017 7:30 AM EST) Patholo gist Method Time Signature Neutrophils % 73.8 % [facility] LABORATORY Neutr Abs (ANC) 7.17 (H) 1.70 - [facility] 6.10 [facility] x10(3)/[facility] L LABORATORY Lymphocytes % 12.2 % [facility] LABORATORY Lymphocytes Abs 1.2 0.9 - 3.2 [facility] x10(3)/[facility] LABORATORY Monocytes % 9.0 % [facility] LABORATORY Monocyte Abs 0.9 0.3 - 0.9 [facility] x10(3)/[facility] LABORATORY Eosinophils % 3.9 % [facility] LABORATORY Eosinophils Abs 0.4 0.0 - 0.4 [facility] x10(3)/[facility] LABORATORY Basophils % 0.6 % [facility] LABORATORY Basophils Abs 0.1 0.0 - 0.1 [facility] x10(3)/[facility] LABORATORY Immature Gran % 0.50 % [place] [...] City/State/ZIP Code Phon e Number [place] [id number] Drive (ABNORMAL) Hemogram (08/07/2017 7:30 AM EST) Analysis Performed At Patho logist Time Signature WBC 9.7 (H) 4.0 - 9.5 [facility] x10(3)/[facility] LABORATORY RBC 3.54 (L) 4.58 - [facility] 5.54 [facility] x10(6)/[facility] LABORATORY Hemoglobin 9.9 (L) 13.7 - [facility] 16.5 gm/dL [facility] Hematocrit 32.3 (L) 40.5 - [facility] 48.5 % [facility] MCV 91.2 82.9 - [facility] 93.[address] [facility] LABORATORY MCH 28.0 27.5 - [facility] 32.1 pg [facility] MCHC 30.7 (L) 32.0 - [facility] 35.7 gm/dL [facility] Platelets 312 145 - 357 [facility] x10(3)/[facility] LABORATORY RDWSD 53.2 (H) 36.0 - [facility] 45.0 [facility] LABORATORY RDWCV 16.0 (H) 11.4 - [facility] 13.8 % [facility] MPV 8.9 7.6 - 12.9 [facility] LABORATORY nRBC % Auto 0.0 % [facility] LABORATORY nRBC Abs Auto 0.000 0.000 - [facility] 0.000 [facility] x10(3)/[facility] LABORATORY Specimen Anatomical Collection Method Collection Time Receive d Time (Source) Location / / Volume Laterality Blood specimen 08/07/2017 7:30 AM 018 7:45 (specimen) EST AM EST Resulting Agency Comment Spec In Lab Yonathan Smith MD HEMATOLOGY ORDERABLES Performing Organization Address City/State/[place] [address] (ABNORMAL) Basic Metabolic Panel (non-fasting) (08/07/2017 7:30 AM EST) athologist Signature Glucose Lvl 80 65 - 199 [facility] mg/dL [facility] Comment: Diabetes: >=200 [...] or in patients with acute kidney failure. [email or web address] Specimen Anatomical Collection Method Collection Time Receive d Time (Source) Location / / Volume Laterality Blood specimen 08/07/2017 7:30 AM 018 7:45 (specimen) EST AM EST Resulting Agency Comment Spec In Lab Yonathan Smith MD CHEMISTRY ORDERABLES Performing Organization Address City/[facility]/ZIP [facility] Phon e Number [address] POCT Glucose (08/07/2017 7:27 AM EST) athologist Signature POC Glucose 81 65 - 199 [facility] mg/dL [facility] Comment: Supplemental ranges: <140 mg/dL before meals <180 mg/dL all other times of the day Specimen Anatomical Collection Method Collection Time Receive d Time (Source) Location / / Volume Laterality Blood specimen 08/07/2017 7:27 AM 018 7:27 (specimen) EST AM EST Yonathan Smith MD POINT OF CARE TEST ORDERABLE S Performing Organization Address City/[facility] Phon e Number [address] APTT (08/07/2017 7:04 AM [...] Organization Address City/State/[place] [address] (ABNORMAL) Prothrombin Time (08/07/2017 7:04 AM EST) athologist Signature PT 17.3 (H) 11.8 - 14.0 [facility] LABORATORY INR 1.4 (H) 0.9 - [...] Organization Address City/State/[place] [address] POCT Glucose (08/07/2017 4:03 AM EST) athologist Signature POC Glucose 93 65 - 199 [facility] mg/dL [facility] Comment: Supplemental ranges: <140 mg/dL before meals <180 mg/dL all other times of the day Specimen Anatomical Collection Method Collection Time Receive d Time (Source) Location / / Volume Laterality Blood specimen 08/07/2017 4:03 AM 018 4:03 (specimen) EST AM EST Yonathan Smith MD POINT OF CARE TEST ORDERABLE S Performing Organization Address City/State/[place] [address] POCT Glucose (08/07/2017 12:04 AM EST) athologist Signature POC Glucose 107 65 - 199 [facility] mg/dL [facility] Comment: Supplemental ranges: <140 mg/dL before meals <180 mg/dL all other times of the day Specimen Anatomical Collection Method Collection Time Receive d Time (Source) Location / / Volume Laterality Blood specimen 08/07/2017 12:04 8 (specimen) AM EST 12:04 AM EST Yonathan Smith MD POINT OF CARE TEST ORDERABLE S Performing Organization Address City/[facility]/ZIP Code Phon e Number [address] POCT Glucose (08/06/2017 7:56 PM EST) P athologist Signature POC Glucose 178 65 - 199 [facility] mg/dL [facility] Comment: Supplemental ranges: <140 mg/dL before meals <180 mg/dL all other times of the day Specimen Anatomical Collection Method Collection Time Receive d Time (Source) Location / / Volume Laterality Blood specimen 08/06/2017 7:56 PM 018 7:56 (specimen) EST PM EST Yonathan Smith MD POINT OF CARE TEST ORDERABLE S Performing Organization Address City/State/ZIP Code Phon e Number [address] [id number] (08/06/2017 2:32 PM EST) Component Value Ref Test Analysis Performed At Patholo gist Range Method Time Signature VB Text Department: Vascular Surgery Lab VASCUBASE Report Patient: [id number] (GREGORY HOANG) CPT: [id number] ICD10: I99.8 Referring Physician: YONATHAN SMITH ?? [...]
Routine documented in this encounter Care Teams Underwriting Sales Representative Relationship Specialty Start Date End Date Lovely Vicente MD PCP - General 04/16/[address] [place] [address] [address] [place] [address] documented as of this encounter
--- OUTSIDE RECORDS SUMMARY | 2022-04-01 10:05 | XMS_ITS | Encounter Summary ---
:1945 Author Organization [facility] [address] Care Team Providers Name Role Phone Lovely Vicente MD Primary Care Provider Encounter Details Date Type Department Care Team Description 08/09/2017 Clinical Support Same Day at [facility] Canceled (D-SCHED ERROR [facility] / CORRECT ION ) [place] [address] Social History Tobacco Use Types Packs/Day [...] MD [facility] er [place], [place] [address] (Wo rk) 05/28/2022 Laboratory Appointment Lab 05/28/2022 Office Visit Cardiology Zulma Dolan MD [facility] [place] [address] iLz Poole PA [facility] [place] [address] 06/10/2022 Office Visit Dermatology Laura Scherer MD [facility] DR [address] [place], [place] [address] (Wo rk) documented as of this encounter Procedures Procedure Name Priority Date/Time Associated Diagnosis Comme nts RAT CULTURIST 08/09/2017 12:00 AM Resul ts for this SCAN EST procedure are i n the results section. documented in this encounter Results SCAN DOC: RAT CULTURIST (08/09/2017 12:00 AM EST) Narrative 08/09/2017 12:00 AM EST This result has an attachment that is no t available. Ordered by an unspecified provider. Scanning Provider MEDIA MGR SCAN EXT ORDR/RSLT documented in this encounter Visit Diagnoses Not on filedocumented in this encounter Care Teams Dental Patient Coordinator Relationship Specialty Start Date End Date Lovely Vicente MD PCP - General 04/16/[address] [place] [address] documented as of this encounter
--- OUTSIDE RECORDS SUMMARY | 2022-04-01 10:06 | XMS_ITS | Encounter Summary ---
:1945 [place] [address] Care Team Providers Name Role Phone Lovely Vicente MD Primary Care Provider Encounter Details Date Type Department Care Team Description 08/04/2017 Notes Only Cardiac Surgery Makayla Wilson APRN [facility] [place] [address] CARDIAC SURGERY [phone] [place], [place] [address] (Wo rk) Social History Tobacco [...] Zulma Dolan MD [facility] [place], [place] [address] (Wo rk) 05/28/2022 Laboratory Appointment Lab 05/28/2022 Office Visit Cardiology Zulma Dolan MD [facility] [place] [address] Liz Poole PA [facility] [place] [address] 06/10/2022 Office Visit Dermatology Laura Scherer MD [facility] [address] [place], [place] [address] (Wo rk) documented as of this encounter Visit Diagnoses Not on filedocumented in this encounter Care Teams Distribution Analyst Relationship Specialty Start Date End Date Lovely Vicente MD PCP - General 04/16/[address] [place] [address] documented as of this encounter
--- OUTSIDE RECORDS SUMMARY | 2022-04-01 10:06 | XMS_ITS | Encounter Summary ---
:1945 [place] [address] Care Team Providers Name Role Phone Lovely Vicente MD Primary Care Provider Encounter Details Date Type Department Care Team Description 08/04/2017 Notes Only Pain Management at Barbra Bruno, [facility] [place] [address] [place] [address] [phone] (Wo rk) Social History Tobacco Use Types [...] bid) at this time. Barbra Soares, MSN, TEST BORER-BC, [facility] documented in this encounter Plan of Treatment Upcoming Encounters Date Type Specialty Care Team Description 05/28/2022 Appointment Cardiology Zulma Dolan MD [facility] [address] [place], [place] [address] (Wo rk) 05/28/2022 Laboratory Appointment Lab 05/28/2022 Office Visit Cardiology Zulma Dolan MD [facility] [place] [address] Liz Poole PA [facility] [place] [address] 06/10/2022 Office Visit Dermatology Laura Scherer MD [facility] [address] [place], [place] [address] (Wo rk) documented as of this encounter Visit Diagnoses Not on filedocumented in this encounter Care Teams Sharemilker Relationship Specialty Start Date End Date Lovely Vicente MD PCP - General 04/16/[address] [place] [address] documented as of this encounter
--- OUTSIDE RECORDS SUMMARY | 2022-04-01 10:06 | XMS_ITS | Encounter Summary ---
:1945 Author Organization [facility] [place] [address] Care Team Providers Name Role Phone Lovely Vicente MD Primary Care Provider Encounter Details Date Type Department Care Team Description 08/04/2017 Orders Only Cardiac Surgery Makayla Wilson APRN [facility] [place] [address] CARDIAC SURGERY [phone] [place], [place] [address] (Wo rk) Social History Tobacco [...] MD [facility] er [address] [place], [place] [address] (Wo rk) 05/28/2022 Laboratory Appointment Lab 05/28/2022 Office Visit Cardiology Zulma Dolan MD [facility] [place] [address] Liz Poole PA [facility] [place] [address] 06/10/2022 Office Visit Dermatology Laura Scherer MD [facility] ER DR [address] [place], [place] [address] (Wo rk) documented as of this encounter Visit Diagnoses Not on filedocumented in this encounter Care Teams Mix Maker Relationship Specialty Start Date End Date Lovely Vicente MD PCP - General 04/16/[address] [place] [address] documented as of this encounter
--- OUTSIDE RECORDS SUMMARY | 2022-04-01 10:06 | XMS_ITS | Encounter Summary ---
:1945 Author Organization [facility] [place] [address] Care Team Providers Name Role Phone Lovely Vicente MD Primary Care Provider Reason for Visit Auth/Cert Specialty Diagnoses / Procedures Referred By Contact Refer red To Contact Diagnoses Critical lower limb ischemia CELLULITIS RT FOOT Procedures EMERGENCY Referral ID Status Reason Start Date Expiration Date Visits Requ ested Visits Authorized [id number] 1 1 Encounter Details Date Type Department Care Team Description 08/06/2017 Hospital Encounter [facility] [place] [address] Social History Tobacco Use Types Packs/Day [...] Dolan MD [facility] [place], [place] [address] (Wo rk) 05/28/2022 Laboratory Appointment Lab 05/28/2022 Office Visit Cardiology Zulma Dolan MD [facility] [place] [address] Liz Poole PA [facility] [place] [address] 06/10/2022 Office Visit Dermatology Laura Scherer MD [facility] [address] [place], [place] [address] (Wo rk) documented as of this encounter Visit Diagnoses Not on filedocumented in this encounter Care Teams Manager Managed Backup Services Relationship Specialty Start Date End Date Lovely Viecnte MD PCP - General 04/16/[address] [place] [address] documented as of this encounter
--- OUTSIDE RECORDS SUMMARY | 2022-04-01 10:06 | XMS_ITS | Encounter Summary ---
:1945 Author Organization [employer] [place] [address] Care Team Providers Name Role Phone Lovely Vicente MD Primary Care Provider Encounter Details Date Type Department Care Team Description 08/06/2017 Orders Only Vascular Surgery at [facility] Eden Moss APRN Ischemia of foot [facility] [place] [address] VASCULAR SURGERY [phone] [place], [place] [address] (Wo rk) Social History Tobacco [...] Dolan MD [facility] er [place], [place] [address] (Wo rk) 05/28/2022 Laboratory Appointment Lab 05/28/2022 Office Visit Cardiology Zulma Dolan MD [facility] [place] [address] Liz Poole PA [facility] [place] [address] 06/10/2022 Office Visit Dermatology Laura Scherer MD [facility] ER DR TEJA GR-DERMAT [place], [place] 0[address] (Wo rk) documented as of [...] 444 ms MUSE SYSTEM (Bezet) Calculated P [place] 44 degrees MUSE SYSTEM Calculated R [place] -31 degrees MUSE SYSTEM Calculated T [place] 106 degrees MUSE SYSTEM INTERPRETATION Normal sinus [...] Signature Prealbumin 19 (L) 20 - 40 KATALINA RYAN mg/dL [facility] Comment: Prealbumin levels are generally [...] Organization Address City/State/Z[place] [address] (ABNORMAL) Basic Metabolic Panel (non-fasting) (08/06/2017 12:32 PM EST) athologist Signature Glucose Lvl 92 65 - 199 [facility] mg/dL [facility] Comment: Diabetes: [...] or in patients with acute kidney failure. http://[employer]/DHnkdep http://[employer]/DHMCnkf Specimen Anatomical Collection Method Collection Time Receive d Time (Source) Location / / Volume Laterality Blood specimen 08/06/2017 12:32 8 1:15 (specimen) PM EST PM EST Resulting Agency Comment Spec In Lab Arik Clement MD CHEMISTRY ORDERABLES Performing Organization Address City/State/Z[place] [address] (ABNORMAL) Hemogram (08/06/2017 12:32 PM EST) Analysis Performed At Patho logist Time Signature WBC 11.8 (H) 4.0 - 9.5 [facility] x10(3)/[facility] LABORATORY RBC 3.49 (L) 4.58 - [facility] 5.54 [facility] x10(6)/[facility] LABORATORY Hemoglobin 9.9 (L) 13.7 - [facility] 16.5 gm/dL [facility] Hematocrit 32.0 (L) 40.5 - [facility] 48.5 % [facility] MCV 91.7 82.9 - [facility] 93.1 [facility] LABORATORY MCH 28.4 27.5 - [facility] 32.1 pg [facility] MCHC 30.9 (L) 32.0 - [facility] 35.7 gm/dL [facility] Platelets 326 145 - 357 [facility] x10(3)/[facility] LABORATORY RDWSD 53.4 (H) 36.0 - [facility] 45.0 [facility] LABORATORY RDWCV 16.0 (H) 11.4 - [facility] 13.8 % [facility] MPV 9.1 7.6 - 12.9 [facility] LABORATORY nRBC % Auto 0.0 % [facility] nRBC Abs Auto 0.000 0.000 - [facility] 0.000 [facility] x10(3)/[facility] LABORATORY Specimen Anatomical Collection Method Collection Time Receive d Time (Source) Location / / Volume Laterality Blood specimen 08/06/2017 12:32 8 1:15 (specimen) PM EST PM EST Resulting Agency Comment Spec In Lab Arik Clement MD HEMATOLOGY ORDERABLES Performing Organization Address City/State/ZIP [place] [address] documented in this encounter Visit Diagnoses Diagnosis Ischemia of foot Unspecified circulatory system disorder documented in this encounter Care Teams Speck Dyer Relationship Specialty Start Date End Date Lovely Vicente MD PCP - General 04/16/[address] [place] [address] documented as of this encounter
--- OUTSIDE RECORDS SUMMARY | 2022-04-01 10:06 | XMS_ITS | Encounter Summary ---
:1945 [place] [address] Care Team Providers Name Role Phone Lovely Vicente MD Primary Care Provider Encounter Details Date Type Department Care Team Description 08/04/2017 Notes Only Cardiac Surgery Makayla Wilson MANAGER TALENT MANAGEMENT [facility] [place] [address] CARDIAC SURGERY [phone] [place], [place] 0[address] (Wo rk) Social History [...] Description 05/28/2022 Appointment Cardiology Zulma Dolan MD [facility] Dr [place], [place] [address] (Wo rk) 05/28/2022 Laboratory Appointment Lab 05/28/2022 Office Visit Cardiology Zulma Dolan MD [facility] [place] [address] Liz Poole PA [facility] [place] [address] 06/10/2022 Office Visit Dermatology Laura Scherer MD [facility] DR TEJA GR-DERMAT [facility] [place], [place] [address] (Wo rk) documented as of this encounter Visit Diagnoses Not on filedocumented in this encounter Care Teams Alternative Financing Specialist Relationship Specialty Start Date End Date Lovely Vicente MD PCP - General 04/16/[address] [place] [address] documented as of this encounter
--- OUTSIDE RECORDS SUMMARY | 2022-04-01 10:06 | XMS_ITS | Encounter Summary ---
:1945 Author Organization [facility] [address] Care Team Providers Name Role Phone Lovely Vicente MD Primary Care Provider Reason for Visit Auth/Cert Specialty Diagnoses / Procedures Referred By Contact Refer red To Contact Diagnoses Critical lower limb ischemia CELLULITIS RT FOOT Procedures EMERGENCY Referral ID Status Reason Start Date Expiration Date Visits Requ ested Visits Authorized [id number] 1 1 Encounter Details Date Type Department Care Team Description 08/06/2017 Clinical Support [facility] Day at [facility] [place]schemia of foot [facility] [place] [address] Social History Tobacco Use Types Packs/Day [...] noother symptoms except severe right foot pain. [facility] clinic called as pt on [...] MD [facility] Dr [place], [place] [address] (Wo rk) 05/28/2022 Laboratory Appointment Lab 05/28/2022 Office Visit Cardiology Zulma Dolan [place] [facility] [address] Liz Poole PA [facility] [place] [address] 06/10/2022 Office Visit Dermatology Laura Scherer MD [facility] [address]-DERMAT [place], [place] [address] (Wo rk) documented as of [...] 444 ms MUSE SYSTEM (Bezet) Calculated P [place] 44 degrees MUSE SYSTEM Calculated R [place] -31 degrees MUSE SYSTEM Calculated T [place] 106 degrees MUSE SYSTEM INTERPRETATION Normal sinus [...] disorder documented in this encounter Care Teams Extermination Inspector Relationship Specialty Start Date End Date Lovely Vicente MD PCP - General 04/16/[address] [place] [address] documented as of this encounter
--- OUTSIDE RECORDS SUMMARY | 2022-04-01 10:06 | XMS_ITS | Encounter Summary ---
:1945 [place] [address] Care Team Providers Name Role Phone Lovely Vicente MD Primary Care Provider Encounter Details Date Type Department Care Team Description 08/05/2017 Notes Only Vascular Surgery at [facility] Eden Moss, STACIE [facility] [place] [address] VASCULAR SURGERY [phone] [place], [place] [address] (Wo rk) Social History Tobacco [...] Zulma Dolan MD [facility] [place], [place] 0[address] (Wo rk) 05/28/2022 Laboratory Appointment Lab 05/28/2022 Office Visit Cardiology Zulma Dolan MD [facility] [place] [address] Liz Poole PA [facility] [place] [address] 06/10/2022 Office Visit Dermatology Laura Scherer MD [facility] DR TEJA GR-DERMAT [place], [place] [address] (Wo rk) documented as of this encounter Visit Diagnoses Not on filedocumented in this encounter Care Teams Latex Foam Worker Relationship Specialty Start Date End Date Lovely Vicente MD PCP - General 04/16/15 [facility] [address] [place] [address] documented as of this encounter
--- OUTSIDE RECORDS SUMMARY | 2022-04-01 10:06 | XMS_ITS | Encounter Summary ---
:1945 Author Organization [facility] [place] [address] Care Team Providers Name Role Phone Lovely Vicente MD Primary Care Provider Reason for Visit Reason Comments Foot Ulcer WOUND CHECK Auth/Cert Specialty Diagnoses / Procedures Referred By Contact Refer red To Contact Diagnoses Critical lower limb ischemia CELLULITIS RT FOOT Procedures EMERGENCY Referral ID Status Reason Start Date Expiration Date Visits Requ ested Visits Authorized [id number] 1 1 Encounter Details Date Type Department Care Team Description 08/06/2017 [facility] lower limb [facility] ischemia [facility] [address] [place], [place] VASCULAR SURGERY [id number] [place] [address] [phone] Social History Tobacco Use Types Packs/Day Years [...] Smith MD - 08/06/2017 1:00 PM EST [facility] staff: 1. RIGHT leg CLI [...] Dolan MD [facility] [address] [place], [place] [address] (Wo ) 05/28/2022 Laboratory Appointment Lab 05/28/2022 Office Visit Cardiology Zulma Dolan MD [facility] [place] [address] Liz Poole PA [facility] [place] [address] 06/10/2022 Office Visit Dermatology Laura Scherer MD [facility] ER DR [address]-DERMAT [place], [place] [address] (Wo rk) documented as of this encounter Visit Diagnoses Diagnosis Critical lower limb ischemia Unspecified circulatory system disorder documented in this encounter Care Teams Cemetery Workers Supervisor Relationship Specialty Start Date End Date Lovely Vicente MD PCP - General 04/16/[address] [place], [place] [address] documented as of this encounter
--- OUTSIDE RECORDS SUMMARY | 2022-04-01 10:06 | XMS_ITS | Encounter Summary ---
:1945 Author Organization [facility] [place] [address] Care Team Providers Name Role Phone Lovely Vicente MD Primary Care Provider Reason for Visit Auth/Cert Specialty Diagnoses / Procedures Referred By Contact Refer red To Contact Diagnoses Critical lower limb ischemia CELLULITIS RT FOOT Procedures EMERGENCY Referral ID Status Reason Start Date Expiration Date Visits Requ ested Visits Authorized [id number] 1 1 Encounter Details Date Type Department Care Team Description 08/06/2017 Laboratory Appointment Lab at [facility] Ischemia of foot [facility] [place] [address] Social History Tobacco Use Types Packs/Day [...] Zulma Dolan MD [facility] er Dr [place] 0[address] (Wo rk) 05/28/2022 Laboratory Appointment Lab 05/28/2022 Office Visit Cardiology Zulma Dolan MD [facility] [place] [address] Liz Poole PA [facility] [place] [address] 06/10/2022 Office Visit Dermatology Laura Scherer MD [facility] ER DR LEZ[address] RD-DERMAT [facility] [place], [place] [address] (Wo rk) documented as [...] Signature Prealbumin 19 (L) 20 - 40 [facility] mg/dL [facility] Comment: Prealbumin levels are [...] Organization Address City/State/[place] [address] (ABNORMAL) Basic Metabolic Panel (non-fasting) (08/06/2017 12:32 PM EST) P athologist Signature Glucose Lvl 92 65 - 199 [facility] mg/dL [facility] Comment: Diabetes: >=200 mg/dL plus symp toms BUN 29 (H) 10 - 20 mg/dL [facility] Creatinine 1.33 0.80 - 1.50 mg/dL [facility] LABORATORY [...] mg/dL [facility] Estimated GFR 53 (L) >=60 [facility] Comment: The reported eGFR should be multiplied b y 1.2 for patients. The MDRD is not an appropriate measure o f renal function for patients with body mass extremes or in patients with acute kidney failure. http://[employer]/DHnkdep http://[employer]/DHMCnkf Specimen Anatomical Collection Method Collection Time Receive d Time (Source) Location / / Volume Laterality Blood specimen 08/06/2017 12:32 8 1:15 (specimen) PM EST PM EST Resulting Agency Comment Spec In Lab Arik Clement MD CHEMISTRY ORDERABLES Performing Organization Address City/State/[place] [address] (ABNORMAL) Hemogram (08/06/2017 12:32 PM EST) Analysis Performed At Patho logist Time Signature WBC 11.8 (H) 4.0 - 9.5 [facility] x10(3)/[facility] LABORATORY RBC 3.49 (L) 4.58 - [facility] 5.54 [facility] x10(6)/[facility] LABORATORY Hemoglobin 9.9 (L) 13.7 - [facility] 16.5 gm/dL [facility] Hematocrit 32.0 (L) 40.5 [facility] 48.5 % [facility] MCV 91.7 82.9 - [facility] LAB[facility]ATORY MCH 28.4 27.5 - KATALINA [place] 32.1 pg [facility] MCHC 30.9 (L) 32.0 - KATALINA [place] 35.7 gm/dL [facility] Platelets 326 145 - 357 [facility] x10(3)/[facility] LABORATORY RDWSD 53.4 (H) 36.0 - K[facility] [place] 45.0 [facility] LABORATORY RDWCV 16.0 (H) 11.4 - KATALINA RYAN 13.8 % [facility] MPV 9.1 7.6 - 12.9 [facility] LABORATORY nRBC % Auto 0.0 % [facility] LAB[facility] nRBC Abs Auto 0.000 0.000 - KATALINA [place] 0.000 [facility] x10(3)/[facility] LABORATORY Specimen Anatomical Collection Method Collection Time Receive d Time (Source) Location / / Volume Laterality Blood specimen 08/06/2017 12:32 8 1:15 (specimen) PM EST PM EST Resulting Agency Comment Spec In Lab Arik Clement MD HEMATOLOGY ORDERABLES Performing Organization Address City/State/ZIP Code Phon e Number [place] [id number] HOS[address] LAB[address] documented in this encounter Visit Diagnoses Diagnosis Ischemia of foot Unspecified circulatory system disorder documented in this encounter Care Teams Forest Nursery Worker Relationship Specialty Start Date End Date Lovely Vicente MD PCP - General 04/16/[address] [place] [address] documented as of this encounter
--- OUTSIDE RECORDS SUMMARY | 2022-04-01 10:06 | XMS_ITS | Encounter Summary ---
:1945 Author Organization [facility] [place] [address] Care Team Providers Name Role Phone Lovely Vicente MD Primary Care Provider Reason for Visit Auth/Cert Specialty Diagnoses / Procedures Referred By Contact Refer red To Contact Diagnoses Critical lower limb ischemia CELLULITIS RT FOOT Procedures EMERGENCY Referral ID Status Reason Start Date Expiration Date Visits Requ ested Visits Authorized [id number] 1 1 Encounter Details Date Type Department Care Team Description 08/04/2017 Laboratory Appointment Lab 3L [facility] [place] [address] Social History Tobacco Use Types Packs/Day [...] Dolan MD [facility] er Dr [place] [address] (Wo rk) 05/28/2022 Laboratory Appointment Lab 05/28/2022 Office Visit Cardiology Zulma Dolan MD [facility] [place] [address] Liz Poole PA [facility] [place] [address] 06/10/2022 Office Visit Dermatology Laura Scherer MD [facility] DR TEJA GR-DERMAT [place], [place] 0[address] (Wo rk) documented as of this encounter Visit Diagnoses Not on filedocumented in this encounter Care Teams Extruder Operator Helper Relationship Specialty Start Date End Date Lovely Vicente MD PCP - General 04/16/15 [facility] [address] [place], [place] [address] documented as of this encounter
--- OUTSIDE RECORDS SUMMARY | 2022-04-01 10:06 | XMS_ITS | Encounter Summary ---
:1945 Author Organization [facility] [place] [address] Care Team Providers Name Role Phone Lovely Vicente MD Primary Care Provider Reason for Visit Auth/Cert Specialty Diagnoses / Procedures Referred By Contact Refer red To Contact Diagnoses Critical lower limb ischemia CELLULITIS RT FOOT Procedures EMERGENCY Referral ID Status Reason Start Date Expiration Date Visits Requ ested Visits Authorized [id number] 1 1 Encounter Details Date Type Department Care Team Description 08/04/2017 Hospital Encounter XRay at [facility] Danette Maxwell Incisional pain [address] [place] [address] Dr Gomes, BLOW MOLD OPERATOR [facility] [phone] CARDIOLOGY [place], [place] 0[address] Social History Tobacco Use Types [...] Description 05/28/2022 Appointment Cardiology Zulma Dolan MD [facility] [place], [place] 0[address] (Wo rk) 05/28/2022 Laboratory Appointment Lab 05/28/2022 Office Visit Cardiology Zulma Dolan [place] [address] Liz Poole PA [facility] [place] [address] 06/10/2022 Office Visit Dermatology Laura Scherer MD [facility] DR TEJA RG-DERMAT [place], [place] 0[address] (Wo rk) documented as of [...] original. EXAMINATION: XR CHEST PA AND LATERAL ([employer]) CLINICAL HISTORY: Checking sternal stabi lity/assess wires [...] Daniele gutiérrez 08/04/2017 4:13 PM Danette Maxwell BLOW MOLD OPERATOR IMG DX ORDERABLES documented in this encounter Visit Diagnoses Diagnosis Incisional pain Disturbance of skin sensation documented in this encounter Care Teams Manager Of Photography Relationship Specialty Start Date End Date Lovely Vicente MD PCP - General 04/16/[address] [place] [address] documented as of this encounter
--- OUTSIDE RECORDS SUMMARY | 2022-04-01 10:06 | XMS_ITS | Encounter Summary ---
:1945 Author Organization [facility] [place] [address] Care Team Providers Name Role Phone Lovely Vicenet MD Primary Care Provider Encounter Details Date Type Department Care Team Description 08/04/2017 Orders Only Cardiac Surgery Makayla Wilson [place] [facility] [place] [address] CARDIAC SURGERY [phone] [place], [place] [address] (Wo rk) Social History Tobacco [...] Zulma Dolan MD [facility] er [place], [place] [address] (Wo rk) 05/28/2022 Laboratory Appointment Lab 05/28/2022 Office Visit Cardiology Zulma Dolan MD [facility] [place] [address] Liz Poole PA [facility] [place] [address] 06/10/2022 Office Visit Dermatology Laura Scherer MD [facility] ER DR TEJA GR-DERMAT [place], [place] 0[address] (Wo rk) documented as of this encounter Visit Diagnoses Not on filedocumented in this encounter Care Teams Limousine Driver Relationship Specialty Start Date End Date Lovely Vicente MD PCP - General 04/16/[address] [place] [address] documented as of this encounter
--- OUTSIDE RECORDS SUMMARY | 2022-04-01 10:06 | XMS_ITS | Encounter Summary ---
:1945 [place] [address] Care Team Providers Name Role Phone Lovely Vicente MD Primary Care Provider Reason for Visit Auth/Cert Specialty Diagnoses / Procedures Referred By Contact Refer red To Contact Diagnoses Critical lower limb ischemia CELLULITIS RT FOOT Procedures EMERGENCY Referral ID Status Reason Start Date Expiration Date Visits Requ ested Visits Authorized [id number] 1 1 Encounter Details Date Type Department Care Team Description 08/09/2017 Anesthesia Event Main Operating Room Daniele Lizama MD [facility] [place] [address] [facility] Rob Jones MD [facility] [place] [address] [place] [address] Anesthesia Record Procedure Summary Procedure Name [...] Knowles, Dory arm), right; VAMSI Rios, RN zvcq-kpt-roaufa catheter system; 20 gauge; 08/16/17; 1047 PIV 07/29/17; 1413; median 07/29/17 1413 by 08/16/17 1047 by cubital vein (antecubital Magdalene Hickey Williams, Dory fossa), left; VAMSI Wyatt, RN aobi-yvt-sxnvqt catheter system; 20 gauge; 08/16/17; 1047 PIV 08/06/17; 1742; cephalic 08/06/17 1742 by 0920 by vein (lateral side of Taylor Laureano Danah y, Caitlyn C, arm), right; VAMSI BONNER jqgw-kez-spaawn catheter system; 22 gauge, 1 in length; Eliseo LAUREANO RN VAS; distraction, intradermal injection, tolerated well, appears comfortable; 0; 08/16/17; 0920 Wound 08/07/17; 1335; knee; 08/07/17 1335 by 08/16/17 1047 by laceration; wound occured Barbara Albert iams, Dory ELECTRONIC DATA PROCESSING AUDITOR; 08/16/17; 1047 VAMSI Alonzo, RN PIV 08/07/17; 1734; cephalic 08/07/17 1734 by 1047 by vein (lateral side of Kendrick, Carlos W, Willia ms, Dory arm), left; MARCIE Wyatt RN ches-yit-cztvdh catheter system; 22 gauge; distraction, intradermal injection, [...] Santillan MD - 08/09/2017 9:01 AM EST [facility] Department of Anesthesiology Post-procedure Note Patient: Don Fatima Procedure Summary Date Anesthesia Start Anesthesia Stop Room / Location 08/09/17 0802 0901 [facility] OR 14 / [facility] MAIN OR Procedure Diagnosis Surgeon Responsible Provider AMPUTATION, 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 Nerve [...] [facility]?? PRO ENDOSCOPY W/VIDEO-ASST VEIN HARVEST, CABG Right 07/07/2017 ENDOSCOPIC HARVEST VEIN(S) FOR CABG (WRVU 0.31) performed by Yuan Retana MD at [facility] MAIN OR ??? PRO THYROIDECTOMY 03/28/2013 THYROIDECTOMY, TOTAL OR COMPLETE performed by Manny Mcknight MD at [facility] MAIN OR Social History Substance [...] adequate IV access. Brody Santillan MD PGY-2, Street Light Repairer Pager #[phone] Anesthesiology Staff (Dewhirst): Pre-op summary note as [...] Dolan MD [facility] [place], [place] [address] (Wo rk) 05/28/2022 Laboratory Appointment Lab 05/28/2022 Office Visit Cardiology Zulma Dolan MD [facility] [place] [address] Liz Poole PA [facility] [place] [address] 06/10/2022 Office Visit Dermatology Laura Scherer MD [facility] DR [address]-DERMAT OLOGY [place], [place] [address] (Wo rk) documented as [...] Length: 10 cm Gauge: 21 Needle Type: P-vvvve-mwejx Medication injection made in crementally with aspirations. [...] Procedure) documented in this encounter Care Teams Textile Broker Relationship Specialty Start Date End Date Lovely Vicente MD PCP - General 04/16/15 [facility] [address] [place] [address] documented as of this encounter
--- OUTSIDE RECORDS SUMMARY | 2022-04-01 10:06 | XMS_ITS | Encounter Summary ---
:1945 Author Organization [facility] [place] [address] Care Team Providers Name Role Phone Lovely Vicente MD Primary Care Provider Reason for Visit Auth/Cert Specialty Diagnoses / Procedures Referred By Contact Refer red To Contact Diagnoses Critical lower limb ischemia CELLULITIS RT FOOT Procedures EMERGENCY Referral ID Status Reason Start Date Expiration Date Visits Requ ested Visits Authorized [id number] 1 1 Encounter Details Date Type Department Care Team Description 08/09/2017 Surgery Main Operating Room Yonathan Smith AM PUTATION, Mary Hitchcock MD TRANSMETATARSAL ([facility] 12.71) [facility] [address] Siddiqui [place] [address] [place] [address] [phone] Social History Tobacco Use Types Packs/Day Years [...] 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 Patient [...] Dorsalis Pedis (Ankle) Artery ?132 ? 0.94 ??Greer-Biphasic ? Posterior Tibial (Ankle) Artery ??154 ? 1.10 ??Greer-Biphasic ? Fourth Toe ? 67 ?0.48 ?? [...] For any problems or questions please call [phone] ZELDA Smith, diving judge Nurse Clinician For issues on weeknights after 5pm and weekends please call [phone] and ask for the Vascular Fellow occupational therapist rehab manager. General Instructions None Future Appointments and Orders Future Appointments Provider Department Dept Phone 08/26/2017 4:00 PM Aurelia Rivera PA Vascular Surgery at [place] [phone] 09/07/2017 3:00 PM LAB, THREE L Lab 3L [facility] [phone] 09/07/2017 4:00 PM Luz Prescott MD Endocrinology at [place] [phone] 09/09/2017 8:00 AM Barbra Soares APRN Pain Management at [place] [phone] Please bring a list of your current [...] For any problems or questions please call [phone] ZELDA Smith, diving judge Nurse Clinician For issues on weeknights after 5pm and weekends please call [phone] and ask for the Vascular Fellow occupational therapist rehab manager. documented in this encounter Medications at [...] of Care Management Discharge Note Patient Destination: [facility] ([facility]) [address] [id number] Transportation: with (at bedside) Time of Discharge: by 12 noon Level of Care: swing Patient Aware: yes Family Notified: yes Md to call report to: Yissel Quintero SUPERINTENDENT RECREATION already called RN to call report to: [phone] Shirin Wolf Office of Care Management Pager [phone] Shirin Wolf RN - 08/16/2017 10:50 AM EST [facility] has offered pt swing bed. Pt and accept bed. will transport via car. SUPERINTENDENT RECREATION Yissel Quintero aware; d/c paperwork will be completed by 12 noon. [facility] requests pt arrival by 1400 today; SUPERINTENDENT RECREATION, RN, and family aware. SUPERINTENDENT RECREATION called [facility] and was told that they prefer pt to arrive with wound vac dressing applied but clamped. SUPERINTENDENT RECREATION applied new wound vac dressing. RN has [facility] number to call report. PASSR completed; SUPERINTENDENT RECREATION paged to request provider signature in highlighted space. Indigo from [facility] notified via email that home wound vac now cancelled; [facility] has picked up from room and order cancelled. Packet started and provided to community center coordinator. Medicare important message explained to patient, patient signed. Copy provided to patient and signature page to OCM for inclusion in pt EMR. L Radha Powers Yoselin - 08/16/2017 10:34 AM EST Office of Care Management/Table Maker Patient Name: Gregory Hoang : 1945 Patient has been offered a swing bed at [facility]. The patient will be transported by private transportation. No MD to MD report necessary Please call Nursing Report to [phone], ask for bit sander. Info to accompany patient: Narcotic Prescriptions Copies of Medication Administration Records and IV sheets for past 10 days. Plan: Table Maker will be available to the patient and Bullet Slug Casting Machine Operator-RN and/or Frame Expander for further assistance. Patient will be discharged to: [address] [id number] Radha Powers, Table Maker Mira Truong, VAMSI - 08/15/2017 10:05 PM EST [address] Flores to ask if he wanted to hold metoprolol dose. BP 95/58. OK to hold this dose Courtney Brito - 08/15/2017 3:26 PM EST Office of Care Management(OCM)/Table Maker(RS)/ D/C Planning re : Patient is [...] status. 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 staff: Looks well. Vac in place. Rehab referrals ongoing. Can ambulate in hallway. Change VAC at bedside today. Naty Colindres RN - 08/14/2017 1:33 PM EST Patient Name: Gregory Hoang Patient Age: 72 y.o. Birthdate: 1945 Admit date: 08/06/2017 Attending Physician: Yonathan Smith MD We want him to go to a place for intensive therapy and not at a assisted where he will be just sitting there and not getting any therapy. . Contacted by direct care RN, who said that patient and would like information about patient's referral to: [facility] PHONE: [phone] FAX: [phone] CM spoke with RS who said that [...] rehab. Await recommendations from PT. Covering pager #[phone]. 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 Retail Pharmacy Manager Kaitlin Saha, RN Pager #[phone] Payam Rosales - 08/13/2017 2:37 PM EST Web Site Admin Encounter Note Patient Name: Gregory Hoang : [id number] MR#: [id number] Admit Date: 08/06/2017 1:41 PM Hospital Day 7 days Narrative: Visited to introduce and assess acceptance of Web Site Admin services. Pt was awake, alert, oriented and in chair and family was there. Assessment:Patient coping positively with stresses of illness/hospitalization at this time. Pt says that he is hoping to get better and his family was there. Pt says that he has family care and supportand taking one day at time. Intervention and Outcome: Provided emotional support and encouraging presence. 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 A letter describing our affiliations was reviewed with them and theywere educated about their right to choose where referrals are placed. Patient requests referral to [facility] [email or web address]. PHONE: [phone] FAX: [phone]. And Home NPWT (Negative Pressure Wound Therapy) aka wound vac device made available to pt. Serial # confirmed. Reviewed [facility] Proof of Delivery/Assignment of Benefits Statement(POD/AOB) Form w patient or authorized agent signing on behalf of patient. Copy of POD/AOB provided to pt and other copy faxed to [employer] @ fax# [phone] Expected date of discharge: 08/12/2017. 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 Address: [address] [place] [address] [place] [address] (home) Mobile: Telephone Information: Referring Provider: No [...] at [facility] MAIN OR Date/Procedure Med's given/comments 08/10/17 RLE angio with multiple ASPHALT DISTRIBUTOR TENDER to R posterior tibial artery Fentanyl 200 [...] Take 1 tablet by mouth daily. 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 Heparin gtt continues to run. Pt [...] : 1945 AGE 72 y.o. Address: [address] [place] [address] [place] [address] (home) Mobile: Telephone Information: Referring Provider: No [...] 7.93) performed by Yuan Retana MD at [facility] OR ??? 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 Vascular resident occupational therapist rehab manager and will forward result to the team prior to rounds. 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 Patient [...] at [facility] MAIN OR Functional Status/Social Hx: [...] left blue toes with CTA showing R DIGITAL MEASUREMENT ADVISOR pseudoaneurysm (now thrombosed) and occluded ATs bilaterally. [...] 2.5x80 5. Completion RLE angiogram 6. L DIGITAL MEASUREMENT ADVISOR angiogram 7. 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 - L DIGITAL MEASUREMENT ADVISOR angriogram demonstrated: High femoral bifurcation over the proximal half of the femoral head. L DIGITAL MEASUREMENT ADVISOR access in the distal L DIGITAL MEASUREMENT ADVISOR. - Closure device: Mynx Technical Procedure: The [...] for a 45cm 5F Destination. V18 and [place] and QuickCross catheters were used to select [...] 5F. A stationed picture of the L DIGITAL MEASUREMENT ADVISOR was performed as the patient was noted to have a very high bifurcation. Access appeared in the distal R DIGITAL MEASUREMENT ADVISOR. Closure and sheath removal was performed with [...] PM EST 1440 report called to 5 odd nurse Tessa RN documented in this encounter [...] sit/sit to supine -- Bed Mobility Goal, Concho Level independent -- Bed Mobility Goal, Date [...] days -- Transfer Training Goal, Activity Type pbq-vz-ieyef/wcgwh-sw-qjw -- Transfer Train Goal, Concho Level conditional independence -- Transfer Train Goal, [...] call cabello within reach, Hourly rounding by RN/SCREW MACHINE ADJUSTER AUTOMATIC. Bed alarm / Chair alarm. Patient-specific fall [...] Smith MD - 08/15/2017 6:28 PM EST [facility] Operative Note Patient Name: Gregory Hoang : [id number] MR#: [id number] Case Date: 08/09/2017 Surgeon: Surgeon(s) and Role: [...] 2.5x80 5. Completion RLE angiogram 6. L DIGITAL MEASUREMENT ADVISOR angiogram 7. Mynx closure Precautions/Restrictions: fall, sternal [...] other (see comments) (or swing bed) Pager: [phone] BASSAM ELIAS, PT 08/14/2017 Inpatient Physical Therapy [...] to Achieve by discharge Gait Training Goal, Concho Level conditional independence;set up required Gait Training [...] are: 1- [facility] PHONE: [phone] FAX: [phone] 2- [facility] [place] [place]) [address] [place] [address] 3- [facility])([facility]) [address] [place] [address] I have discussed Medicare/Private [...] RS/CM on Wednesday to follow-up. Covering pager #[phone] for today. Plan of Care - Henrique [...] with additional findings of pseudoaneurysm on R DIGITAL MEASUREMENT ADVISOR and bilateral anterior tibial artery occlusions. Was [...] an outpatient once discharged. Have patient call [phone] to set up an appointment. Follow-up: Dermatology will sign-off for now. Please do not hesitate to contact us if you have any questions orconcerns. Impression and Recommendations discussed with primary team on 08/13/2017. Karo Henderson MD Resident in Dermatology Section of Dermatology, Department of Surgery [facility] Pager [phone] Patient seen and evaluated with staff Rehabilitation Consultant: Halima Cordero MD Section of Dermatology The [...] Outcome: Ongoing (Interventions Implemented as Appropriate) 08/12/17 0326 Coping/Psychosocial Plan Of Care Reviewed With patient;spouse [...] 2.5x80 5. Completion RLE angiogram 6. L DIGITAL MEASUREMENT ADVISOR angiogram 7. Mynx closure Active Non-Hospital Problems [...] home with home health ([facility] PT[facility]OT) Pager: [phone] YASIR TELLO OT 08/12/2017 Occupational Therapy Rehabilitation [...] 2.5x80 5. Completion RLE angiogram 6. L DIGITAL MEASUREMENT ADVISOR angiogram 7. Mynx closure Past Medical History: [...] with 24/7 assistance and maximal services) Pager: [phone] NICHOLAS MORA, PT 08/12/2017 Physical Therapy Rehabilitation [...] sit/sit to supine -- Bed Mobility Goal, Concho Level independent -- Bed Mobility Goal, Outcome Achieved -- goal ongoing Goal: Gait Training Goal Stand Alone Therapy Goal Outcome: Ongoing (Interventions Implemented as Appropriate) 08/11/17 1310 08/12/17 1510 Gait Training Goal Gait Training Goal, Date Established 08/11/17 -- Gait Training Goal, Time to Achieve 5 - 7 days -- Gait Training Goal, Concho Level conditional independence -- Gait Training Goal, [...] days -- Transfer Training Goal, Activity Type bkp-em-ybuks/ouvtb-xc-ddu -- Transfer Train Goal, Concho Level conditional independence -- Transfer Training Goal, [...] Smith MD - 08/11/2017 2:52 PM EST [facility] Operative Note Patient Name: Gregory Hoang : [id number] MR#: [id number] Case Date: 08/11/2017 Surgeon: Surgeon(s) and Role: [...] 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 Completion RLE angiogram 6. L DIGITAL MEASUREMENT ADVISOR angiogram 7. Mynx closure He is very [...] Anticipated Discharge Disposition: inpatient rehabilitation facility Pager: [phone] LAWRENCE GONZALEZ, PT 08/11/2017 Physical Therapy Rehabilitation [...] to sit/sit to supine Bed Mobility Goal, Concho Level independent Goal: Gait Training Goal Stand Alone Therapy Goal Outcome: Ongoing (Interventions Implemented as Appropriate) 08/11/17 1310 Gait Training Goal Gait Training Goal, Date Established 08/11/17 Gait Training Goal, Time to Achieve 5 - 7 days Gait Training Goal, Concho Level conditional independence Gait Training Goal, Assist [...] 7 days Transfer Training Goal, Activity Type rtw-xz-izilc/yulul-ll-pdk Transfer Train Goal, Concho Level conditional independence Plan of David DelloAnnetta [...] call cabello within reach, Hourly rounding by RN/SCREW MACHINE ADJUSTER AUTOMATIC. Bed alarm / Chair alarm. ? Patient-specific [...] 04/05/2013 Hospitalizations Within the Past 30 Days: [facility] 07/20/2017 Anticipated Length Of Stay (If known): Expected Length of Hospitalization: 5-7 days2-3 days Current Decision-Making Capacity: Alert and oriented x 4 Advance Care Planning: on file Kisha Hoang [facility] [phone] Current Coping/Education/Information Needs: pt and spouse state [...] Health/Prescription Coverage: Primary Insurance: MEDICARE Secondary Insurance: [employer] [place] Prescription Coverage: See above Preferred Pharmacy: [facility] Other: N/A Primary Care Provider: Lovely Vicente MD [phone] Patient/Caregiver Goals of Treatment: Patient plans to [...] of care planning. Kaitlin Saha RN Pager: [phone] Plan of Care - Melba Jaramillo RN [...] Overview Goal: Plan of Care Review 08/08/17 9454 Coping/Psychosocial Plan Of Care Reviewed With patient [...] call cabello within reach, Hourly rounding by RN/SCREW MACHINE ADJUSTER AUTOMATIC. Bed alarm / Chair alarm. Patient-specific fall prevention interventions for sensory deficits provided, if applicable: [X] Yes CPG GOAL OUTCOME EVALUATION: Goal: Fall Prevention-Safe Patient Handling Outcome: Ongoing (Interventions Implemented as Appropriate) 08/06/17 1700 08/06/17199908/07/17 2954 Positioning Body Position -- up in chair [...] at bedside and MD TEAM Carrying pager [phone] contacted (via Radio page) and notified of [...] Cardiology Zulma Dolan MD [facility] [place], [place] [address] (Wo rk) 05/28/2022 Laboratory Appointment Lab 05/28/2022 Office Visit Cardiology Zulma Dolan MD [facility] [place] [address] Liz Poole PA [facility] [place] [address] 06/10/2022 Office Visit Dermatology Laura Scherer MD [facility] [address] [place], [place] [address] (Wo rk) documented as of [...] section. TYPE AND SCREEN Routine 08/09/2017 1:10 ([facility]/SHANDA) AM EST BASIC METABOLIC PANEL Routine 08/09/2017 [...] 160 65 - 199 [place] mg/dL [facility] Comment: [...] Address City/State/[place] [address] [facility] [address] (ABNORMAL) Differential, Automated (08/16/2017 5:08 AM EST) [facility] Method Time Signature Neutrophils % 73.9 % [facility] Neutr Abs (ANC) 5.37 1.70 - [facility] 6.10 [facility] x10(3)/[facility] LABORATORY Lymphocytes % 10.1 % [facility] Lymphocytes Abs 0.7 (L) 0.9 - 3.2 [facility] x10(3)/[facility] LABORATORY Monocytes % 10.1 % [facility] Monocyte Abs 0.7 0.3 - 0.9 [facility] x10(3)/[facility] LABORATORY Eosinophils % 5.1 % [facility] Eosinophils Abs 0.4 0.0 - 0.4 [facility] x10(3)/[facility] LABORATORY Basophils % 0.4 % [facility] Basophils Abs 0.0 0.0 - 0.1 [facility] x10(3)/[facility] LABORATORY Immature Gran % 0.40 % [...] 0.04 x10(3)/[facility] MAR Y [facility] Specimen Anatomical Collection Method Collection Time Receive d Time (Source) Location / / Volume Laterality Blood specimen 08/16/2017 5:08 AM 018 5:20 (specimen) EST AM EST Resulting Agency Comment Spec In Lab Yonathan Smith MD HEMATOLOGY ORDERABLES Performing Organization Address City/State/[place] [address] [facility] [address] (ABNORMAL) Hemogram (08/16/2017 5:08 AM EST) Analysis Performed At Patho logist Time Signature WBC 7.3 4.0 - 9.5 [facility] x10(3)/[facility] LABORATORY RBC 3.36 (L) 4.58 - [facility] 5.54 [facility] x10(6)/[facility] LABORATORY Hemoglobin 9.7 (L) 13.7 - [facility] 16.[facility] gm/dL [facility] Hematocrit 30.3 (L) 40.5 - [facility] 48.5 % [facility] MCV 90.2 82.9 - [facility] 93.1 [facility] LABORATORY MCH 28.9 27.5 - [facility] 32.[address] [facility] MCHC 32.0 32.0 - [facility] 35.7 gm/dL [facility] Platelets 282 145 - 357 [facility] x10(3)/[facility] LABORATORY RDWSD 53.9 (H) 36.0 - [facility] 45.0 [facility] LABORATORY RDWCV 16.5 (H) 11.4 - [facility] 13.8 % [facility] MPV 9.0 7.6 - 12.9 [facility] LABORATORY nRBC % Auto 0.0 % [facility] nRBC Abs Auto 0.000 0.000 - [facility] 0.000 [facility] x10(3)/[facility] LABORATORY Specimen Anatomical Collection Method Collection Time Receive d Time (Source) Location / / Volume Laterality Blood specimen 08/16/2017 5:08 AM 018 5:20 (specimen) EST AM EST Resulting Agency Comment Spec In Lab Yonathan Smith MD HEMATOLOGY ORDERABLES Performing Organization Address City/State/[place] [address] (ABNORMAL) Basic Metabolic Panel (non-fasting) (08/16/2017 5:08 AM EST) P athologist Signature Glucose Lvl 141 65 - 199 [facility] mg/dL [facility] [...] or in patients with acute kidney failure. [email or web address]/DHnkdep [email or web address]/DHMCnkf Specimen Anatomical Collection Method Collection Time Receive d Time (Source) Location / / Volume Laterality Blood specimen 08/16/2017 5:08 AM 018 5:20 (specimen) EST AM EST Resulting Agency Comment Spec In Lab Yonathan Smith MD CHEMISTRY ORDERABLES Performing Organization Address City/State/[place] [address] (ABNORMAL) Prothrombin Time (08/16/2017 [...] Smith MD HEMATOLOGY ORDERABLES Performing Organization Address City/[facility]/ZIP Code Phon e Number [address] POCT Glucose (08/16/2017 4:09 AM EST) athologist Signature POC Glucose 147 65 - 199 [facility] RYAN mg/dL [facility] LABORATORY [...] City/[facility]/ZIP Code Phon e Number [address] POCT Glucose (08/15/2017 [...] City/[facility]/ZIP Code Phon e Number [address] POCT Glucose (08/15/2017 8:05 PM EST) athologist Signature POC Glucose 136 65 - 199 [place]BAR[place] RYAN mg/dL [facility] [...] Address City/State/[place] [address] (ABNORMAL) POCT Glucose (08/15/2017 4:50 PM EST) athologist Signature POC Glucose 232 (H) 65 - 199 [place] mg/dL [facility] Comment: [...] Address City/State/[place] [address] POCT Glucose (08/15/2017 12:04 PM EST) athologist Signature POC Glucose 135 65 - 199 BARBARA ZHAORYAN mg/dL [facility] [...] Address City/State/[place] [address] POCT Glucose (08/15/2017 7:36 AM EST) athologist Signature POC Glucose 124 65 - 199 BARBARA ZHAORYAN mg/dL [facility] [...] Address City/State/[place] [address] (ABNORMAL) Differential, Automated (08/15/2017 6:22 AM EST) [facility] Method Time Signature Neutrophils % 76.1 % [facility] Neutr Abs (ANC) 6.62 (H) 1.70 - [facility] 6.10 [facility] x10(3)/[facility] LABORATORY Lymphocytes % 9.3 % [facility] Lymphocytes Abs 0.8 (L) 0.9 - 3.2 [facility] x10(3)/[facility] LABORATORY Monocytes % 9.4 % [facility] Monocyte Abs 0.8 0.3 - 0.9 [facility] x10(3)/[facility] LABORATORY Eosinophils % 4.0 % [facility] Eosinophils Abs 0.4 0.0 - 0.4 [facility] x10(3)/[facility] LABORATORY Basophils % 0.6 % [facility] Basophils Abs 0.0 0.0 - 0.1 [facility] x10(3)/[facility] LABORATORY Immature Gran [...] Smith MD HEMATOLOGY ORDERABLES Performing Organization Address City/[facility]/ZIP Code Phon e Number [address] (ABNORMAL) Hemogram (08/15/2017 6:22 AM EST) Analysis Performed At Patho logist Time Signature WBC 8.7 4.0 - 9.5 [facility] x[facility](3[facility] LABORATORY RBC 3.21 (L) 4.58 - [place] 5.54 [facility] x10(6)/[facility] LABORATORY Hemoglobin 9.1 (L) 13.7 - [facility] g[facility]/dL [facility] Hematocrit 29.0 (L) 40.5 - [facility] 48.5 % [facility] MCV 90.3 82.9 - [facility] 93.1 [facility] LABORATORY MCH 28.3 27.5 - [facility] 32.[address] [facility] MCHC 31.4 (L) 32.0 - [facility] 35.7 gm/dL [facility] Platelets 254 145 - 357 [facility] x10(3)/[facility] LABORATORY RDWSD 53.9 (H) 36.0 - [facility] 45.0 [facility] LABORATORY RDWCV 16.3 (H) 11.4 - [facility] 13.8 % [facility] MPV 8.8 7.6 - 12.9 [facility] LABORATORY nRBC % Auto 0.0 % [facility] nRBC Abs Auto 0.000 0.000 - [facility] 0.000 [facility] x10(3)/[facility] LABORATORY Specimen Anatomical Collection Method Collection Time Receive d Time (Source) Location / / Volume Laterality Blood specimen 08/15/2017 6:22 AM 018 6:33 (specimen) EST AM EST Resulting Agency Comment Spec In Lab Yonathan Smith MD HEMATOLOGY ORDERABLES Performing Organization Address City/State/ZIP Code Phon e Number [facility] [place] [address] (ABNORMAL) Basic Metabolic Panel (non-fasting) (08/15/2017 6:22 AM EST) P athologist Signature Glucose Lvl 118 65 - 199 [facility] mg/dL [facility] [...] [facility] Estimated GFR >60 >=60 [facility] LABORATORY Comment: The reported eGFR should be multiplied b y 1.2 for patients. The MDRD is not an appropriate measure o f renal function for patients with body mass extremes or in patients with acute kidney failure. [email or web address] [email or web address] Specimen Anatomical Collection Method Collection Time Receive d Time (Source) Location / / Volume Laterality Blood specimen 08/15/2017 6:22 AM 018 6:33 (specimen) EST AM EST Resulting Agency Comment Spec In Lab Yonathan Smith MD CHEMISTRY ORDERABLES Performing Organization Address City/State/ZIP Code Phon e Number [address] (ABNORMAL) Prothrombin Time (08/15/2017 [...] Address City/State/ZIP Code Phon e Number [address] POCT Glucose (08/15/2017 4:33 AM EST) athologist Signature POC Glucose 164 65 - 199 [facility] mg/dL [facility] [...] Address City/State/ZIP Code Phon e Number [address] POCT Glucose (08/15/2017 12:12 AM EST) athologist Signature POC Glucose 89 65 - 199 [facility] mg/dL [facility] Comment: [...] Address City/State/ZIP Code Phon e Number [address] (ABNORMAL) POCT Glucose (08/14/2017 [...] City/[facility]/[place] [address] POCT Glucose (08/14/2017 5:11 PM EST) athologist Signature POC Glucose 174 65 - 199 [facility] mg/dL [facility] [...] Address City/State/[place] [address] POCT Glucose (08/14/2017 12:10 PM EST) athologist Signature POC Glucose 141 65 - 199 [place] mg/dL [facility] [...] Address City/State/ZIP Code Phon e Number [address] POCT Glucose (08/14/2017 8:07 AM EST) P athologist Signature POC Glucose 158 65 - 199 [facility] mg/dL [facility] [...] Address City/State/ZIP Code Phon e Number [address] (ABNORMAL) Differential, Automated (08/14/2017 4:52 AM EST) Patholo gist Method Time Signature Neutrophils % 78.6 % [facility] Neutr Abs (ANC) 7.70 (H) 1.70 - [facility] 6.10 [facility] x10(3)/[facility] LABORATORY Lymphocytes % 7.8 % [facility] Lymphocytes Abs 0.8 (L) 0.9 - 3.2 [facility] x10(3)/[facility] LABORATORY Monocytes % 8.8 % [facility] Monocyte Abs 0.9 0.3 - 0.9 [facility] x10(3)/[facility] LABORATORY Eosinophils % 4.0 % [facility] Eosinophils Abs 0.4 0.0 - 0.4 [facility] x10(3)/[facility] LABORATORY Basophils % 0.5 % [facility] Basophils Abs 0.0 0.0 - 0.1 [facility] x10(3)/[facility] LABORATORY Immature Gran [...] 0.04 x10(3)/[facility] Specimen Anatomical Collection Method Collection Time Receive d Time (Source) Location / / Volume Laterality Blood specimen 08/14/2017 4:52 AM 018 5:08 (specimen) EST AM EST Resulting Agency Comment Spec In Lab Yonathan Smith MD HEMATOLOGY ORDERABLES Performing Organization Address City/State/[place] [address] (ABNORMAL) Hemogram (08/14/2017 4:52 AM EST) Analysis Performed At Patho logist Time Signature WBC 9.8 (H) 4.0 - 9.5 [facility] x10(3)/[facility] LABORATORY RBC 3.32 (L) 4.58 - [facility] 5.54 [facility] x10(6)/[facility] LABORATORY Hemoglobin 9.5 (L) 13.7 - [facility] 16.5 gm/dL [facility] Hematocrit 30.3 (L) 40.5 - [facility] 48.5 % [facility] MCV 91.3 82.9 - [facility] 93.1 [facility] LABORATORY MCH 28.6 27.5 - [facility] 32.[address] [facility] MCHC 31.4 (L) 32.0 - [facility] 35.7 gm/dL [facility] Platelets 263 145 - 357 [facility] x10(3)/[facility] LABORATORY RDWSD 54.8 (H) 36.0 - [facility] 45.0 [facility] LABORATORY RDWCV 16.5 (H) 11.4 - [facility] 13.8 % [facility] MPV 9.1 7.6 - 12.9 [facility] LABORATORY nRBC % Auto 0.0 % [facility] nRBC Abs Auto 0.000 0.000 - [facility] 0.000 [facility] x10(3)/[facility] LABORATORY Specimen Anatomical Collection Method Collection Time Receive d Time (Source) Location / / Volume Laterality Blood specimen 08/14/2017 4:52 AM 018 5:08 (specimen) EST AM EST Resulting Agency Comment Spec In Lab Yonathan Smith MD HEMATOLOGY ORDERABLES Performing Organization Address City/[facility]/[place] [address] (ABNORMAL) Prothrombin Time (08/14/2017 [...] Smith MD HEMATOLOGY ORDERABLES Performing Organization Address City/[facility]/[place] [address] (ABNORMAL) Basic Metabolic Panel (non-fasting) (08/14/2017 4:52 AM EST) athologist Signature Glucose Lvl 135 65 - 199 [facility] mg/dL [facility] [...] or in patients with acute kidney failure. [email or web address] [email or web address] Specimen Anatomical Collection Method Collection Time Receive d Time (Source) Location / / Volume Laterality Blood specimen 08/14/2017 4:52 AM 018 5:08 (specimen) EST AM EST Resulting Agency Comment Spec In Lab Yonathan Smith MD CHEMISTRY ORDERABLES Performing Organization Address City/[facility]/ZIP Code Phon e Number [address] POCT Glucose (08/14/2017 3:56 AM EST) P athologist Signature POC Glucose 135 65 - 199 [facility] mg/dL [facility] [...] City/[facility]/[place] [address] POCT Glucose (08/13/2017 11:13 PM EST) athologist Signature POC Glucose 118 65 - 199 [place] mg/dL [facility] [...] Address City/State/[place] [address] (ABNORMAL) POCT Glucose (08/13/2017 8:08 PM EST) athologist Signature POC Glucose 204 (H) 65 - 199 [facility] mg/dL [facility] Comment: [...] Address City/State/[place] [address] POCT Glucose (08/13/2017 4:02 PM EST) athologist Signature POC Glucose 145 65 - 199 [facility] mg/dL [facility] LABORATORY [...] Address City/State/[place] [address] POCT Glucose (08/13/2017 11:31 AM EST) athologist Signature POC Glucose 179 65 - 199 [facility] mg/dL [facility] Comment: [...] City/[facility]/[place] [address] (ABNORMAL) POCT Glucose (08/13/2017 10:16 AM EST) athologist Signature POC Glucose 211 (H) 65 - 199 [facility] mg/dL [facility] Comment: [...] City/[facility]/[place] [address] JULIAN, legs, multiple levels (08/13/2017 7:42 AM EST) Component Value Ref Test [facility] Method Time Signature VB Text Department: Vascular Surgery Lab VASCUBASE Report Patient: [id number] (GREGORY HOANG) CPT: 05687 ICD10: I99.8 Referring Physician: YONATHAN SMITH ?? Indications: s/p R 1,2,3 toe amps with red left foot, need n ew baseline Diabetes mellitus: yes ICD10 Diagnosis Code: I99.8 Findings: Right ?Pressure (mm Hg) ?? JULIAN ??Waveform ?TBI ?? Brachial Artery ?138 ? Dorsalis Pedis (Ankle) Arter y ?132 ? 0.94 ??Greer- Biphasic ? Posterior Tibial (Ankle) Art anila ??154 ? 1.10 ??Greer-Biphasic ? Fourth Toe ? 67 ? 0.48 [...] 156 65 - 199 [facility] mg/dL [facility] [...] Address City/State/[place] [address] (ABNORMAL) Differential, Automated (08/13/2017 5:33 AM EST) Patholo gist Method Time Signature Neutrophils % 77.8 % [facility] Neutr Abs (ANC) 7.83 (H) 1.70 - [facility] 6.10 [facility] x10(3)/[facility] LABORATORY Lymphocytes % 8.4 % [facility] Lymphocytes Abs 0.8 (L) 0.9 - 3.2 [facility] x10(3)/[facility] LABORATORY Monocytes % 8.3 % [facility] Monocyte Abs 0.8 0.3 - 0.9 [facility] x10(3)/[facility] LABORATORY Eosinophils % 4.6 % [facility] Eosinophils Abs 0.5 (H) 0.0 - 0.4 [facility] x10(3)/[facility] LABORATORY Basophils % 0.5 % [facility] Basophils Abs 0.0 0.0 - 0.1 [facility] x10(3)/[facility] LABORATORY Immature Gran [...] Melisa Gran Abs 0.04 0.00 - 0.04 x10(3)/[facility]ORY Specimen Anatomical Collection Method Collection Time Receive d Time (Source) Location / / Volume Laterality Blood specimen 08/13/2017 5:33 AM 018 6:04 (specimen) EST AM EST Resulting Agency Comment Spec In Lab Yonathan Smith MD HEMATOLOGY ORDERABLES Performing Organization Address City/State/ZIP Code Phon e Number [place] [id number] HOSPITAL LABORATORY Drive (ABNORMAL) Hemogram (08/13/2017 5:33 AM EST) Analysis Performed At Patho logist Time Signature WBC 10.1 (H) 4.0 - 9.5 [facility] x10(3)/[facility] LABORATORY RBC 3.21 (L) 4.58 - [facility] 5.54 [facility] x10(6)/[facility] LABORATORY Hemoglobin 9.2 (L) 13.7 - [facility] 16.5 gm/dL [facility] Hematocrit 29.6 (L) 40.5 - [facility] 48.5 % [facility] MCV 92.2 82.9 - [facility] 93.1 [facility] LABORATORY MCH 28.7 27.5 - [facility] 32.[address] [facility]ORY MCHC 31.1 (L) 32.0 - [facility] 35.7 gm/dL [facility] Platelets 263 145 - 357 [facility] x10(3)/[facility] LABORATORY RDWSD 54.8 (H) 36.0 - [facility] 45.0 [facility] LABORATORY RDWCV 16.4 (H) 11.4 - [facility] 13.8 % [facility] LABORATORY MPV 9.2 7.6 - 12.9 [facility] LABORATORY nRBC % Auto 0.0 % [facility] nRBC Abs Auto 0.000 0.000 - [facility] 0.000 [facility] x10(3)/[facility] LABORATORY Specimen Anatomical Collection Method Collection Time Receive d Time (Source) Location / / Volume Laterality Blood specimen 08/13/2017 5:33 AM 018 6:04 (specimen) EST AM EST Resulting Agency Comment Spec In Lab Yonathan Smith MD HEMATOLOGY ORDERABLES Performing Organization Address City/State/[place] [address] (ABNORMAL) Prothrombin Time (08/13/2017 [...] Address City/State/[place] [address] (ABNORMAL) Basic Metabolic Panel (non-fasting) (08/13/2017 5:33 AM EST) P athologist Signature Glucose Lvl 126 65 - 199 [facility] mg/dL [facility] [...] [facility] LAB[facility]ORY Estimated GFR >60 >=60 [facility] LABORATORY Comment: The reported eGFR should be multiplied b y 1.2 for patients. The MDRD is not an appropriate measure o f renal function for patients with body mass extremes or in patients with acute kidney failure. [email or web address] [email or web address] Specimen Anatomical Collection Method Collection Time Receive d Time (Source) Location / / Volume Laterality Blood specimen 08/13/2017 5:33 AM 018 6:04 (specimen) EST AM EST Resulting Agency Comment Spec In Lab Yonathan Smith MD CHEMISTRY ORDERABLES Performing Organization Address City/State/ZIP Code Phon e Number [address] POCT Glucose (08/13/2017 4:29 AM EST) athologist Signature POC Glucose 111 65 - 199 [facility] mg/dL M[facility] [...] City/[facility]/[place] [address] POCT Glucose (08/12/2017 11:28 [...] City/[facility]/ZIP Code Phon e Number [address] (ABNORMAL) POCT Glucose (08/12/2017 [...] Address City/State/ZIP Code Phon e Number [address] POCT Glucose (08/12/2017 4:24 PM EST) athologist Signature POC Glucose 161 65 - 199 [facility] mg/dL [facility] Comment: [...] Address City/State/ZIP Code Phon e Number [address] POCT Glucose (08/12/2017 12:00 PM EST) athologist Signature POC Glucose 167 65 - 199 [facility] mg/dL [facility] [...] Address City/State/ZIP Code Phon e Number [address] POCT Glucose (08/12/2017 7:25 AM EST) athologist Signature POC Glucose 152 65 - 199 [facility] mg/dL [facility] [...] Address City/State/[place] [address] (ABNORMAL) Differential, Automated (08/12/2017 6:29 AM EST) [facility] Method Time Signature Neutrophils % 78.7 % [facility] Neutr Abs (ANC) 7.94 (H) 1.70 - [facility] 6.10 [facility] x10(3)/[facility] LABORATORY Lymphocytes % 8.8 % [facility] Lymphocytes Abs 0.9 0.9 - 3.2 [facility] x10(3)/[facility] LABORATORY Monocytes % 7.8 % [facility] Monocyte Abs 0.8 0.3 - 0.9 [facility] x10(3)/[facility] LABORATORY Eosinophils % 3.9 % [facility] Eosinophils Abs 0.4 0.0 - 0.4 [facility] x10(3)/[facility] LABORATORY Basophils % 0.3 % [facility] Basophils Abs 0.0 0.0 - 0.1 [facility] x10(3)/[facility] LABORATORY Immature Gran [...] Address City/State/ZIP Code Phon e Number [address] (ABNORMAL) Hemogram (08/12/2017 6:29 AM EST) Analysis Performed At Patho logist Time Signature WBC 10.1 (H) 4.0 - 9.5 [facility] x[facility](3)/[facility] LABORATORY RBC 3.02 (L) 4.58 - [facility] 5.54 [facility] x10(6)/[facility] LABORATORY Hemoglobin 8.7 (L) 13.7 - [facility] 16.5 gm/dL [facility] Hematocrit 28.1 (L) 40.5 - [facility] 48.5 % [facility] LABORATORY MCV 93.0 82.9 - [facility] 93.1 [facility] LABORATORY MCH 28.8 27.5 - [facility] 32.[address] [facility]ORATORY MCHC 31.0 (L) 32.0 - [facility] 35.7 gm/dL [facility] LABORATORY Platelets 223 145 - 357 [facility] x10(3)/[facility] LABORATORY RDWSD 56.1 (H) 36.0 - [facility] 45.0 [facility] LABORATORY RDWCV 16.4 (H) 11.4 - [facility] R[facility]AN 13.8 % [facility] LABORATORY MPV 9.0 7.6 - 12.9 [facility] LABORATORY nRBC % Auto 0.0 % [facility] nRBC Abs Auto 0.000 0.000 - [facility] 0.000 [facility] x10(3)/[facility] LABORATORY Specimen Anatomical Collection Method Collection Time Receive d Time (Source) Location / / Volume Laterality Blood specimen 08/12/2017 6:29 AM 018 6:38 (specimen) EST AM EST Resulting Agency Comment Spec In Lab Yonathan Smith MD HEMATOLOGY ORDERABLES Performing Organization Address City/State/[place] [address] (ABNORMAL) Prothrombin Time (08/12/2017 [...] Address City/State/[place] [address] (ABNORMAL) Basic Metabolic Panel (non-fasting) (08/12/2017 6:29 AM EST) athologist Signature Glucose Lvl 151 65 - 199 [facility] mg/dL [facility] [...] [facility] LAB[facility]ORY Estimated GFR >60 >=60 [facility] LABORATORY Comment: The reported eGFR should be multiplied b y 1.2 for patients. The MDRD is not an appropriate measure o f renal function for patients with body mass extremes or in patients with acute kidney failure. [email or web address] [email or web address] Specimen Anatomical Collection Method Collection Time Receive d Time (Source) Location / / Volume Laterality Blood specimen 08/12/2017 6:29 AM 018 6:38 (specimen) EST AM EST Resulting Agency Comment Spec In Lab Yonathan Smith MD CHEMISTRY ORDERABLES Performing Organization Address City/[facility]/ZIP Code Phon e Number [address] POCT Glucose (08/12/2017 4:08 AM EST) athologist Signature POC Glucose 181 65 - 199 [facility] mg/dL [facility] [...] Address City/State/[place] [address] (ABNORMAL) POCT Glucose (08/12/2017 12:17 AM EST) P athologist Signature POC Glucose 221 (H) 65 - 199 [facility] mg/dL [facility] LABORATORY Comment: [...] City/[facility]/ZIP Code Phon e Number [address] (ABNORMAL) POCT Glucose (08/11/2017 [...] City/[facility]/[place] [address] POCT Glucose (08/11/2017 5:59 [...] City/[facility]/[place] [address] (ABNORMAL) POCT Glucose (08/11/2017 [...] Address City/State/ZIP Code Phon e Number [address] POCT Glucose (08/11/2017 12:04 PM EST) athologist Signature POC Glucose 182 65 - 199 [facility] mg/dL [facility] LABORATORY Comment: [...] Address City/State/ZIP Code Phon e Number [address] POCT Glucose (08/11/2017 7:31 AM EST) athologist Signature POC Glucose 156 65 - 199 [facility] mg/dL [facility] LABORATORY Comment: [...] Address City/State/ZIP Code Phon e Number [address] (ABNORMAL) Differential, Automated (08/11/2017 6:16 AM EST) [facility] gist Method Time Signature Neutrophils % 83.7 % [facility] Neutr Abs (ANC) 10.76 (H) 1.70 - [facility] 6.10 [facility] x10(3)/[facility] LABORATORY Lymphocytes % 6.0 % [facility] Lymphocytes Abs 0.8 (L) 0.9 - 3.2 [facility] x10(3)/[facility] LABORATORY Monocytes % 7.5 % [facility] Monocyte Abs 1.0 (H) 0.3 - 0.9 [facility] x10(3)/[facility] LABORATORY Eosinophils % 2.0 % [facility] Eosinophils Abs 0.3 0.0 - 0.4 [facility] x10(3)/[facility] LABORATORY Basophils % 0.3 % [facility] Basophils Abs 0.0 0.0 - 0.1 [facility] x10(3)/[facility] LABORATORY Immature Gran [...] Gran Abs 0.06 (H) 0.00 - 0.04 x10(3)/[facility] LABORATORY Specimen Anatomical Collection Method Collection Time Receive d Time (Source) Location / / Volume Laterality Blood specimen 08/11/2017 6:16 AM 018 6:24 (specimen) EST AM EST Resulting Agency Comment Spec In Lab Yonathan Smith MD HEMATOLOGY ORDERABLES Performing Organization Address City/State/[place] [address] (ABNORMAL) Hemogram (08/11/2017 6:16 AM EST) Analysis Performed At Patho logist Time Signature WBC 12.9 (H) 4.0 - 9.5 [facility] x10(3)/[facility] LABORATORY RBC 3.28 (L) 4.58 - [facility] 5.54 [facility] x10(6)/[facility] LABORATORY Hemoglobin 9.5 (L) 13.7 - [facility] 16.5 gm/dL [facility] LABORATORY Hematocrit 29.8 (L) 40.5 - [facility] 48.5 % [facility] LABORATORY MCV 90.9 82.9 - [facility] 93.1 [facility] LABORATORY MCH 29.0 27.5 - [facility] 32.[address] [facility] LABORATORY MCHC 31.9 (L) 32.0 - [facility] 35.7 gm/dL [facility] LABORATORY Platelets 236 145 - 357 [facility] x10(3)/[facility] LABORATORY RDWSD 53.5 (H) 36.0 - [facility] 45.0 [facility] LABORATORY RDWCV 16.3 (H) 11.4 - [facility] 13.8 % [facility] LABORATORY MPV 8.8 7.6 - 12.9 [facility] LABORATORY nRBC % Auto 0.0 % [facility] LABORATORY nRBC Abs Auto 0.000 0.000 - [facility] 0.000 [facility] x10(3)/[facility] LABORATORY Specimen Anatomical Collection Method Collection Time Receive d Time (Source) Location / / Volume Laterality Blood specimen 08/11/2017 6:16 AM 018 6:24 (specimen) EST AM EST Resulting Agency Comment Spec In Lab Yonathan Smith MD HEMATOLOGY ORDERABLES Performing Organization Address City/State/[place] [address] (ABNORMAL) Prothrombin Time (08/11/2017 [...] Smith MD HEMATOLOGY ORDERABLES Performing Organization Address City/[facility]/[place] [address] Basic Metabolic Panel (non-fasting) (08/11/2017 6:16 AM EST) athologist Signature Glucose Lvl 139 65 - 199 [facility] mg/dL [facility] [...] [facility] LAB[facility]ORY Estimated GFR >60 >=60 [facility] LABORATORY Comment: The reported eGFR should be multiplied b y 1.2 for patients. The MDRD is not an appropriate measure o f renal function for patients with body mass extremes or in patients with acute kidney failure. http://[employer]/DHnkdep http://[employer]/DHMCnkf Specimen Anatomical Collection Method Collection Time Receive d Time (Source) Location / / Volume Laterality Blood specimen 08/11/2017 6:16 AM 018 6:24 (specimen) EST AM EST Resulting Agency Comment Spec In Lab Yonathan Smith MD CHEMISTRY ORDERABLES Performing Organization Address City/[facility]/ZIP Code Phon e Number [address] POCT Glucose (08/11/2017 4:07 AM EST) athologist Signature POC Glucose 162 65 - 199 [place] mg/dL [facility] LABORATORY Comment: [...] Address City/State/ZIP Code Phon e Number [address] POCT Glucose (08/10/2017 [...] Address City/State/[place] [address] POCT Glucose (08/10/2017 8:12 PM EST) athologist Signature POC Glucose 156 65 - 199 [facility] mg/dL [facility] LABORATORY [...] Address City/State/[place] [address] (ABNORMAL) POCT Glucose (08/10/2017 4:42 PM EST) P athologist Signature POC Glucose 211 (H) 65 - 199 [facility] mg/dL [facility] [...] City/State/ZIP Code Phon e Number [place] [id number] HOSPITAL LABOR[address]ORY Drive (ABNORMAL) Differential, Automated (08/10/2017 2:30 PM EST) Patholo gist Method Time Signature Neutrophils % 87.6 % [facility] LABORATORY Neutr Abs (ANC) 9.90 (H) 1.70 - [facility] 6.10 [facility] x10(3)/[facility] L LABORATORY Lymphocytes % 4.3 % [facility] LABORATORY Lymphocytes Abs 0.5 (L) 0.9 - 3.2 [facility] x10(3)/[facility] LABORATORY Monocytes % 6.0 % [facility] LABORATORY Monocyte Abs 0.7 0.3 - 0.9 [facility] x10(3)/[facility] LABORATORY Eosinophils % 1.1 % [facility] LABORATORY Eosinophils Abs 0.1 0.0 - 0.4 [facility] x10(3)/[facility] LABORATORY Basophils % 0.4 % [facility] LABORATORY Basophils Abs 0.0 0.0 - 0.1 [facility] x10(3)/[facility] LABORATORY Immature Gran [...] Gran Abs 0.07 (H) 0.00 - 0.04 x10(3)/[facility] LABORATORY Specimen Anatomical Collection Method Collection Time Receive d Time (Source) Location / / Volume Laterality Blood specimen 08/10/2017 2:30 PM 018 2:48 (specimen) EST PM EST Resulting Agency Comment Spec In Lab Yonathan Smith MD HEMATOLOGY ORDERABLES Performing Organization Address City/State/[place] [address] (ABNORMAL) Hemogram (08/10/2017 2:30 PM EST) Analysis Performed At Patho logist Time Signature WBC 11.3 (H) 4.0 - 9.5 [facility] x10(3)/[facility] LABORATORY RBC 3.13 (L) 4.58 - [facility] 5.54 [facility] x10(6)/[facility] LABORATORY Hemoglobin 8.9 (L) 13.7 - [facility] 16.5 gm/dL [facility] LABORATORY Hematocrit 28.4 (L) 40.5 - [facility] 48.5 % [facility] LABORATORY MCV 90.7 82.9 - [facility] 93[facility]1 [facility] LABORATORY MCH 28.4 27.5 - [facility] 32.[address] [facility] LABORATORY MCHC 31.3 (L) 32.0 - [facility] gm/dL [facility] LABORATORY Platelets 213 145 - 357 [facility] x10(3)/[facility] LABORATORY RDWSD 53.7 (H) 36.0 - [facility] 45.0 [facility] LABORATORY RDWCV 16.4 (H) 11.4 - [facility] 13.8 % [facility] LABORATORY MPV 8.9 7.6 - 12.9 [facility] LABORATORY nRBC % Auto 0.0 % [facility] LABORATORY nRBC Abs Auto 0.000 0.000 - [facility] 0.000 [facility] x10(3)/[facility] LABORATORY Specimen Anatomical Collection Method Collection Time Receive d Time (Source) Location / / Volume Laterality Blood specimen 08/10/2017 2:30 PM 018 2:48 (specimen) EST PM EST Resulting Agency Comment Spec In Lab Yonathan Smith MD HEMATOLOGY ORDERABLES Performing Organization Address City/State/ZIP Code Phon e Number [address] (ABNORMAL) POCT Glucose (08/10/2017 1:50 PM EST) athologist Signature POC Glucose 243 (H) 65 - 199 [facility] mg/dL [facility] LABORATORY Comment: [...] City/[facility]/ZIP Code Phon e Number [address] POCT Glucose (08/10/2017 11:21 AM EST) athologist Signature POC Glucose 156 65 - 199 [facility] mg/dL [facility] LABORATORY Comment: [...] City/[facility]/[place] [address] (ABNORMAL) Differential, Automated (08/10/2017 10:28 AM EST) [facility] Method Time Signature Neutrophils % 85.3 % [facility] LABORATORY Neutr Abs (ANC) 9.43 (H) 1.70 - [facility] 6.10 [facility] x10(3)/[facility] L LABORATORY Lymphocytes % 5.5 % [facility] LABORATORY Lymphocytes Abs 0.6 (L) 0.9 - 3.2 [facility] x10(3)/[facility] LABORATORY Monocytes % 5.9 % [facility] LABORATORY Monocyte Abs 0.6 0.3 - 0.9 [facility] x10(3)/[facility] LABORATORY Eosinophils % 2.1 % [facility] LABORATORY Eosinophils Abs 0.2 0.0 - 0.4 [facility] x10(3)/[facility] LABORATORY Basophils % 0.4 % [facility] LABORATORY Basophils Abs 0.0 0.0 - 0.1 [facility] x10(3)/[facility] LABORATORY Immature Gran [...] Address City/State/[place] [address] (ABNORMAL) Hemogram (08/10/2017 10:28 AM EST) Analysis Performed At Patho logist Time Signature WBC 11.0 (H) 4.0 - 9.5 [facility] x10(3)/[facility] LABORATORY RBC 3.02 (L) 4.58 - [facility] 5.54 [facility] x10(6)/[facility] LABORATORY Hemoglobin 8.8 (L) 13.7 - [facility]m/dL [facility] LABORATORY Hematocrit 28.1 (L) 40.5 - [facility] 48.5 % [facility] LABORATORY MCV 93.0 82.9 - [facility] 93.1 [facility] MCH 29.1 27.5 - [place] 32.1 pg [facility] MCHC 31.3 (L) 32.0 - [place] 35.7 gm/dL [facility] Platelets 207 145 - 357 [facility] x10(3)/[facility] LABORATORY RDWSD 55.3 (H) 36.0 - [place] [facility] 45.0 [facility] RDWCV 16.4 (H) 11.4 - [facility] 13.8 % [facility] MPV 9.0 7.6 - 12.9 [facility] LABORATORY nRBC % Auto 0.0 % [facility] nRBC Abs Auto 0.000 0.000 - [facility] 0.000 [facility] x10(3)/[facility] LABORATORY Specimen Anatomical Collection Method Collection Time Receive d Time (Source) Location / / Volume Laterality Blood specimen 08/10/2017 10:28 8 (specimen) AM EST 10:35 AM EST Resulting Agency Comment Spec In Lab Yonathan Smith MD HEMATOLOGY ORDERABLES Performing Organization Address City/State/[place] [address] VS Angiogram/intervention (vascular) (08/10/2017 [...] 2.5x80 5. Completion RLE angiogram 6. L DIGITAL MEASUREMENT ADVISOR angiogram 7. 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 - L DIGITAL MEASUREMENT ADVISOR angriogram demonstrated: High fe moral bifurcation over the proximal half of the femoral head. L DIGITAL MEASUREMENT ADVISOR access in the distal L DIGITAL MEASUREMENT ADVISOR. - Closure device: Mynx Technical Procedure: ?The [...] for a 45cm 5F Destination. V18 and [place] a nd QuickCross catheters were used to [...] bifurcation. Access appeared in the distal R DIGITAL MEASUREMENT ADVISOR. Closure and sheath removal was performed with [...] 2.5x80 5. Completion RLE angiogram 6. L DIGITAL MEASUREMENT ADVISOR angiogram 7. 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 - L DIGITAL MEASUREMENT ADVISOR angriogram demonstrated: High fe moral bifurcation over the proximal half of the femoral head. L DIGITAL MEASUREMENT ADVISOR access in the distal L DIGITAL MEASUREMENT ADVISOR. - Closure device: Mynx Technical Procedure: The [...] for a 45cm 5F Destination. V18 and [place] a nd QuickCross catheters were used to [...] bifurcation. Access appeared in the distal R DIGITAL MEASUREMENT ADVISOR. Closure and sheath removal was performed with [...] (ABNORMAL) Differential, Automated (08/10/2017 5:50 AM EST) [facility] gist Method Time Signature Neutrophils % 80.1 % [facility] LABORATORY Neutr Abs (ANC) 9.01 (H) 1.70 - [facility] 6.10 [facility] x10(3)/[facility] LABORATORY Lymphocytes % 8.8 % [facility] LABORATORY Lymphocytes Abs 1.0 0.9 - 3.2 [facility] x10(3)/[facility] LABORATORY Monocytes % 8.3 % [facility] LABORATORY Monocyte Abs 0.9 0.3 - 0.9 [facility] x10(3)/[facility] LABORATORY Eosinophils % 2.0 % [facility] LABORATORY Eosinophils Abs 0.2 0.0 - 0.4 [facility] x10(3)/[facility] LABORATORY Basophils % 0.4 % [facility] LABORATORY Basophils Abs 0.0 0.0 - 0.1 [facility] x10(3)/[facility] LABORATORY Immature Gran [...] Address City/State/[place] [address] (ABNORMAL) Hemogram (08/10/2017 5:50 AM EST) Analysis Performed At Patho logist Time Signature WBC 11.3 (H) 4.0 - 9.5 [facility] x10(3)/[facility] LABORATORY RBC 3.15 (L) 4.58 - [facility] 5.54 [facility] x10(6)/[facility] LABORATORY Hemoglobin 8.9 (L) 13.7 - [facility] 16[facility] gm/dL [facility] LABORATORY Hematocrit 29.0 (L) 40.5 - [facility] 48.5 % [facility] LABORATORY MCV 92.1 82.9 - [facility] 93.1 [facility] LABORATORY MCH 28.3 27.5 - [facility] 32.[address] [facility] LABORATORY MCHC 30.7 (L) 32.0 - [facility] 35.7 gm/dL [facility] LABORATORY Platelets 231 145 - 357 [facility] x10(3)/[facility] LABORATORY RDWSD 53.9 (H) 36.0 - [facility] 45.0 [facility] LABORATORY RDWCV 16.2 (H) 11.4 - [facility] 13.8 % [facility] LABORATORY MPV 8.7 7.6 - 12.9 [facility] LABORATORY nRBC % Auto 0.0 % [facility] LABORATORY nRBC Abs Auto 0.000 0.000 - [facility] 0.000 [facility] x10(3)/[facility] LABORATORY Specimen Anatomical Collection Method Collection Time Receive d Time (Source) Location / / Volume Laterality Blood specimen 08/10/2017 5:50 AM 018 5:59 (specimen) EST AM EST Resulting Agency Comment Spec In Lab Yonathan Smith MD HEMATOLOGY ORDERABLES Performing Organization Address City/State/[place] [address] (ABNORMAL) Basic Metabolic Panel (non-fasting) (08/10/2017 5:50 AM EST) athologist Signature Glucose Lvl 135 65 - 199 [facility] mg/dL [facility] [...] [facility] LABORATORY Estimated GFR >60 >=60 [facility] LABORATORY Comment: The reported eGFR should be multiplied b y 1.2 for patients. The MDRD is not an appropriate measure o f renal function for patients with body mass extremes or in patients with acute kidney failure. http://[employer]/DHnkdep http://[employer]/DHMCnkf Specimen Anatomical Collection Method Collection Time Receive d Time (Source) Location / / Volume Laterality Blood specimen 08/10/2017 5:50 AM 018 5:59 (specimen) EST AM EST Resulting Agency Comment Spec In Lab Yonathan Smith MD CHEMISTRY ORDERABLES Performing Organization Address City/[facility]/[place] [address] (ABNORMAL) Prothrombin Time (08/10/2017 [...] Smith MD HEMATOLOGY ORDERABLES Performing Organization Address City/[facility]/[place] [address] (ABNORMAL) POCT Glucose (08/10/2017 4:01 AM EST) athologist Signature POC Glucose 206 (H) 65 - 199 [facility] mg/dL [facility] [...] City/[facility]/ZIP [place] [address] POCT Glucose (08/10/2017 2:01 [...] Address City/State/[place] [address] (ABNORMAL) POCT Glucose (08/09/2017 11:42 PM EST) athologist Signature POC Glucose 283 (H) 65 - 199 [facility] mg/dL [facility] LABORATORY Comment: [...] Address City/State/[place] [address] POCT Glucose (08/09/2017 8:55 PM EST) athologist Signature POC Glucose 182 65 - 199 [facility] mg/dL [facility] LABORATORY Comment: [...] Address City/State/[place] [address] (ABNORMAL) APTT (08/09/2017 6:42 PM EST) athologist Signature PTT 90 (H) 25 - 35 sec [facility] LABORATORY Comment: The recommended therapeutic range for fu ll dose, unfractionated heparin at [facility] is 80 ? 114 seconds. The use [...] Smith MD HEMATOLOGY ORDERABLES Performing Organization Address City/[facility]/ZIP [facility] [place] [place] Phon e Number [address] POCT Glucose (08/09/2017 4:41 PM EST) athologist Signature POC Glucose 195 65 - 199 [facility] mg/dL [facility] [...] City/[facility]/[place] [address] POCT Glucose (08/09/2017 12:29 PM EST) athologist Signature POC Glucose 140 65 - 199 [facility] mg/dL [facility] LABORATORY Comment: [...] Address City/State/[place] [address] POCT Glucose (08/09/2017 9:59 AM EST) P athologist Signature POC Glucose 135 65 - 199 [facility] mg/dL [facility] [...] City/[facility]/[place] [address] Specimen to Pathology (08/09/2017 [...] City/[facility]/[place] [address] Surgical Pathology Report (08/09/2017 8:40 AM EST) Component Value Ref Test Analysis Performed At Patholo gist Range Method Time Signature Surgical [id number] ? Location: [facility]; [facility]; A [facility] Report The signing pathologist has (i) examined [...] Henrique Flower Verified: ??08/13/2017 ?Pathologist Performed at: ??-[facility] Dept. of Pathology, [place], [place] CLINICAL INFORMATION Specimen Submitted: A - [...] Address City/State/[place] [address] Anaerobic Culture (08/09/2017 8:30 AM EST) [facility] gist Method Time Signature Anaerobic No anaerobic [facility] Culture organisms [facility] LABORATORY Specimen Anatomical Collection Method [...] Address City/State/[place] [address] (ABNORMAL) Abscess/Wound Aspirate Culture (08/09/2017 8:30 AM EST) Patholo gist Method Time Signature Abscess/Wound Moderate mixed [place] Aspirate bacterial [place] Culture morphotypes [facility] normal LABORATORY cutaneous leroy (A) Gram Stain Rare White Blood Cells [place] Few Gram Positive Cocci in pairs [place] () [facility] LABORATORY Organism Gram Positive [place] Cocci in pairs [place] () [facility] LABORATORY Specimen Anatomical [...] GENERAL ORDER ROBSON Performing Organization Address City/[facility]/ZIP Code Phon e Number [address] POCT Glucose (08/09/2017 4:28 AM EST) P athologist Signature POC Glucose 128 65 - 199 [facility] mg/dL [facility] [...] City/[facility]/[place] [address] ABORH Recheck Status (08/09/2017 1:10 AM EST) [facility] gist Method Time Signature ABORH Type Completed [facility] LABORATORY Specimen Anatomical Collection Method Collection Time Receive d Time (Source) Location / / Volume Laterality Blood specimen 08/09/2017 1:10 AM 018 1:35 (specimen) EST AM EST Resulting Agency Comment Spec In Lab Yonathan Smith MD BLOOD BANK ORDERABLES Performing Organization Address City/[facility]/[place] [address] Antibody screen (08/09/2017 1:10 AM EST) [facility] Method Time Signature Ab Screen Negative [facility] LABORATORY Expires at 08/12/2017 [facility] [id number] on: [facility] LABORATORY Specimen Anatomical Collection Method Collection Time Receive d Time (Source) Location / / Volume Laterality Blood specimen 08/09/2017 1:10 AM 018 1:35 (specimen) EST AM EST Resulting Agency Comment Spec In Lab Yonathan Smith MD BLOOD BANK ORDERABLES Performing Organization Address City/[facility]/[place] [address] ABO/Rh Typing (08/09/2017 1:10 AM EST) P athologist Signature ABORh Type O Pos [facility] LABORATORY Specimen Anatomical Collection Method Collection Time Receive d Time (Source) Location / / Volume Laterality Blood specimen 08/09/2017 1:10 AM 018 1:35 (specimen) EST AM EST Resulting Agency Comment Spec In Lab Yonathan Smith MD BLOOD BANK ORDERABLES Performing Organization Address City/[facility]/[place] [address] (ABNORMAL) APTT (08/09/2017 1:10 AM EST) P athologist Signature PTT 86 (H) 25 - 35 sec [facility] LABORATORY Comment: The recommended therapeutic range for fu ll dose, unfractionated heparin at [facility] is 80 ? 114 seconds. The use [...] Address City/State/[place] [address] (ABNORMAL) Differential, Automated (08/09/2017 1:10 AM EST) [facility] gist Method Time Signature Neutrophils % 76.2 % [facility] LABORATORY Neutr Abs (ANC) 8.59 (H) 1.70 - [facility] 6.10 [facility] x10(3)/[facility] LABORATORY Lymphocytes % 11.0 % [facility] LABORATORY Lymphocytes Abs 1.2 0.9 - 3.2 [facility] x10(3)/[facility] LABORATORY Monocytes % 8.4 % [facility] LABORATORY Monocyte Abs 1.0 (H) 0.3 - 0.9 [facility] x10(3)/[facility] LABORATORY Eosinophils % 3.5 % [facility] LABORATORY Eosinophils Abs 0.4 0.0 - 0.4 [facility] x10(3)/[facility] LABORATORY Basophils % 0.5 % [facility] LABORATORY Basophils Abs 0.1 0.0 - 0.1 [facility] x10(3)/[facility] LABORATORY Immature Gran [...] Address City/State/[place] [address] (ABNORMAL) Hemogram (08/09/2017 1:10 AM EST) Analysis Performed At Patho logist Time Signature WBC 11.3 (H) 4.0 - 9.5 [facility] x10(3)/[facility] LABORATORY RBC 3.47 (L) 4.58 - [facility].54 [facility] x10(6)/[facility] LABORATORY Hemoglobin 10.0 (L) 13.7 - [facility] 16.5 gm/dL [facility] LABORATORY Hematocrit 31.9 (L) 40.5 - [facility] 48.5 % [facility] LABORATORY MCV 91.9 82.9 - [facility] 93.1 [facility] LABORATORY MCH 28.8 27.5 - [facility] 32.[address] [facility] LABORATORY MCHC 31.3 (L) 32.0 - [facility] 35.7 gm/dL [facility] LABORATORY Platelets 234 145 - 357 [facility] x10(3)/[facility] LABORATORY RDWSD 54.0 (H) 36.0 - [facility] 45.0 [facility] LABORATORY RDWCV 16.2 (H) 11.4 - [facility] 13.8 % [facility] LABORATORY MPV 8.7 7.6 - 12.9 [facility] LABORATORY nRBC % Auto 0.0 % [facility] LABORATORY nRBC Abs Auto 0.000 0.000 - [facility] 0.000 [facility] x10(3)/[facility] LABORATORY Specimen Anatomical Collection Method Collection Time Receive d Time (Source) Location / / Volume Laterality Blood specimen 08/09/2017 1:10 AM 018 1:19 (specimen) EST AM EST Resulting Agency Comment Spec In Lab Yonathan Smith MD HEMATOLOGY ORDERABLES Performing Organization Address City/State/[place] [address] (ABNORMAL) Prothrombin Time (08/09/2017 [...] City/State/ZIP Code Phon e Number [place] [phone] (ABNORMAL) Basic Metabolic Panel (non-fasting) (08/09/2017 1:10 AM EST) athologist Signature Glucose Lvl 108 65 - 199 [facility] mg/dL [facility] [...] or in patients with acute kidney failure. [email or web address] Specimen Anatomical Collection Method Collection Time Receive d Time (Source) Location / / Volume Laterality Blood specimen 08/09/2017 1:10 AM 018 1:19 (specimen) EST AM EST Resulting Agency Comment Spec In Lab Yonathan Smith MD CHEMISTRY ORDERABLES Performing Organization Address City/[facility]/ZIP Code Phon e Number [address] POCT Glucose (08/09/2017 12:05 AM EST) athologist Signature POC Glucose 128 65 - 199 [facility] mg[facility]dL [facility] LABORATORY Comment: [...] City/[facility]/[place] [address] (ABNORMAL) POCT Glucose (08/08/2017 7:36 PM EST) athologist Signature POC Glucose 215 (H) 65 - 199 [facility] mg[facility]dL [facility] [...] City/[facility]/[place] [address] (ABNORMAL) POCT Glucose (08/08/2017 6:23 PM EST) athologist Signature POC Glucose 216 (H) 65 - 199 [facility] mg/dL [facility] LABORATORY Comment: [...] Organization Address [facility]/[place] [address] (ABNORMAL) APTT (08/08/2017 6:00 PM EST) athologist Signature PTT 97 (H) 25 - 35 sec [facility] LABORATORY Comment: The recommended therapeutic range for fu ll dose, unfractionated heparin at [facility] is 80 ? 114 seconds. The use [...] Smith MD HEMATOLOGY ORDERABLES Performing Organization Address City/[facility]/[place] [address] POCT Glucose (08/08/2017 4:42 PM EST) athologist Signature POC Glucose 78 65 - 199 [facility] mg/dL [facility] LABORATORY [...] Address City/State/[place] [address] (ABNORMAL) POCT Glucose (08/08/2017 4:01 PM EST) P athologist Signature POC Glucose 58 (L) 65 - 199 [facility] mg/dL [facility] LABOR[facility]ORY Comment: [...] Address City/State/[place] [address] POCT Glucose (08/08/2017 11:51 AM EST) P athologist Signature POC Glucose 90 65 - 199 [facility] mg/dL [facility] LABOR[facility]ORY Comment: [...] Address City/State/ZIP Code Phon e Number [address] (ABNORMAL) APTT (08/08/2017 10:27 AM EST) P athologist Signature PTT 64 (H) 25 - 35 sec [facility] LABORATORY Comment: The recommended therapeutic range for fu ll dose, unfractionated heparin at [facility] is 80 ? 114 seconds. The use [...] Smith MD HEMATOLOGY ORDERABLES Performing Organization Address City/[facility]/ZIP Code Phon e Number [address] POCT Glucose (08/08/2017 8:02 AM EST) athologist Signature POC Glucose 178 65 - 199 [facility] mg/dL [facility] [...] City/[facility]/[place] [address] (ABNORMAL) APTT (08/08/2017 4:51 AM EST) athologist Signature PTT >160 25 - 35 [facility] (Critical) sec [facility] LABOR[facility]ORY Comment: Called by: HOWARD, Read back by: Melba Jaramillo, Date/Time:08/08/17 05:43. The recommended therapeutic range for fu ll dose, unfractionated heparin at [facility] is 80 ? 114 seconds. The use [...] Address City/State/ZIP [place] [address] (ABNORMAL) Differential, Automated (08/08/2017 4:51 AM EST) [facility] Method Time Signature Neutrophils % 77.9 % [facility] LABORATORY Neutr Abs (ANC) 8.17 (H) 1.70 - [facility] 6.10 [facility] x10(3)/[facility] LABORATORY Lymphocytes % 10.3 % [facility] LABORATORY Lymphocytes Abs 1.1 0.9 - 3.2 [facility] x10(3)/[facility] LABORATORY Monocytes % 7.0 % [facility] LABORATORY Monocyte Abs 0.7 0.3 - 0.9 [facility] x10(3)/[facility] LABORATORY Eosinophils % 3.6 % [facility] LABORATORY Eosinophils Abs 0.4 0.0 - 0.4 [facility] x10(3)/[facility] LABORATORY Basophils % 0.5 % [facility] LABORATORY Basophils Abs 0.0 0.0 - 0.1 [facility] x10(3)/[facility] LABORATORY Immature Gran [...] Gran Abs 0.07 (H) 0.00 - 0.04 x10(3)/[facility] LABORATORY Specimen Anatomical Collection Method Collection Time Receive d Time (Source) Location / / Volume Laterality Blood specimen 08/08/2017 4:51 AM 018 5:14 (specimen) EST AM EST Resulting Agency Comment Spec In Lab Yonathan Smith MD HEMATOLOGY ORDERABLES Performing Organization Address City/State/[place] [address] (ABNORMAL) Hemogram (08/08/2017 4:51 AM EST) Analysis Performed At Patho logist Time Signature WBC 10.5 (H) 4.0 - 9.5 [facility] x10(3)/[facility] LABORATORY RBC 3.27 (L) 4.58 - [place] 5.54 [facility] x10(6)/[facility] LABORATORY Hemoglobin 9.3 (L) 13.7 - [facility] 16.5 gm/dL [facility] LABORATORY Hematocrit 30.3 (L) 40.5 - [facility] 48.5 % [facility] LABORATORY MCV 92.7 82.9 - [facility] 93.1 [facility] LABORATORY MCH 28.4 27.5 - [place] 32.[address] [facility] LABORATORY MCHC 30.7 (L) 32.0 - [facility] 35.7 gm/dL [facility] LABORATORY Platelets 252 145 - 357 [facility] x10(3)/[facility] LABORATORY RDWSD 54.6 (H) 36.0 - [facility] 45.0 [facility] LABORATORY RDWCV 16.2 (H) 11.4 - [facility] 13.8 % [facility] LABORATORY MPV 9.1 7.6 - 12.9 [facility] LABORATORY nRBC % Auto 0.0 % [facility] LABORATORY nRBC Abs Auto 0.000 0.000 - [facility] 0.000 [facility] x10(3)/[facility] LABORATORY Specimen Anatomical Collection Method Collection Time Receive d Time (Source) Location / / Volume Laterality Blood specimen 08/08/2017 4:51 AM 018 5:14 (specimen) EST AM EST Resulting Agency Comment Spec In Lab Yonathan Smith MD HEMATOLOGY ORDERABLES Performing Organization Address City/State/ZIP Code Phon e Number [place] [phone] (ABNORMAL) Prothrombin Time (08/08/2017 [...] Address City/State/[place] [address] (ABNORMAL) Basic Metabolic Panel (non-fasting) (08/08/2017 4:51 AM EST) athologist Signature Glucose Lvl 229 (H) 65 - 199 [facility] mg/dL [facility] [...] or in patients with acute kidney failure. [email or web address] [email or web address] Specimen Anatomical Collection Method Collection Time Receive d Time (Source) Location / / Volume Laterality Blood specimen 08/08/2017 4:51 AM 018 5:14 (specimen) EST AM EST Resulting Agency Comment Spec In Lab Yonathan Smith MD CHEMISTRY ORDERABLES Performing Organization Address City/[facility] Phon e Number [address] POCT Glucose (08/08/2017 4:20 AM EST) athologist Signature POC Glucose 193 65 - 199 [facility] mg/dL [facility] [...] City/[facility]/ZIP Code Phon e Number [address] POCT Glucose (08/07/2017 11:11 PM EST) P athologist Signature POC Glucose 124 65 - 199 [facility] mg/dL [facility] LABORATORY Comment: [...] City/[facility]/[place] [address] (ABNORMAL) APTT (08/07/2017 10:18 PM EST) athologist Signature PTT 114 (H) 25 - 35 sec [facility] LABORATORY Comment: The recommended therapeutic range for fu ll dose, unfractionated heparin at [facility] is 80 ? 114 seconds. The use [...] Smith MD HEMATOLOGY ORDERABLES Performing Organization Address [facility]/[place] [address] POCT Glucose (08/07/2017 8:10 PM EST) athologist Signature POC Glucose 140 65 - 199 [facility] mg/dL [facility] [...] City/[facility]/ZIP Code Phon e Number [address] POCT Glucose (08/07/2017 5:27 PM EST) athologist Signature POC Glucose 187 65 - 199 [facility] mg/dL [facility] LABORATORY Comment: [...] City/[facility]/ZIP Code Phon e Number [address] POCT Glucose (08/07/2017 3:29 PM EST) athologist Signature POC Glucose 86 65 - 199 [facility] mg/dL [facility] [...] Organization Address [facility] [place] [address] (ABNORMAL) APTT (08/07/2017 2:50 PM EST) athologist Signature PTT 60 (H) 25 - 35 sec [facility] LABORATORY Comment: The recommended therapeutic range for fu ll dose, unfractionated heparin at [facility] is 80 ? 114 seconds. The use [...] Smith MD HEMATOLOGY ORDERABLES Performing Organization Address City/[facility]/ZIP [facility] [place] [address] (ABNORMAL) POCT Glucose (08/07/2017 2:23 PM EST) athologist Signature POC Glucose 55 (L) 65 - 199 [facility] mg/dL [facility] [...] Address City/State/ZIP Code Phon e Number [address] POCT Glucose (08/07/2017 12:08 PM EST) P athologist Signature POC Glucose 77 65 - 199 [facility] mg/dL [facility] [...] Address City/State/[place] [address] (ABNORMAL) Differential, Automated (08/07/2017 7:30 AM EST) Patholo gist Method Time Signature Neutrophils % 73.8 % [facility] LABORATORY Neutr Abs (ANC) 7.17 (H) 1.70 - [facility] 6.10 [facility] x10(3)/[facility] LABORATORY Lymphocytes % 12.2 % [facility] LABORATORY Lymphocytes Abs 1.2 0.9 - 3.2 [facility] x10(3)/[facility] LABORATORY Monocytes % 9.0 % [facility] LABORATORY Monocyte Abs 0.9 0.3 - 0.9 [facility] x10(3)/[facility] LABORATORY Eosinophils % 3.9 % [facility] LABORATORY Eosinophils Abs 0.4 0.0 - 0.4 [facility] x10(3)/[facility] LABORATORY Basophils % 0.6 % [facility] LABORATORY Basophils Abs 0.1 0.0 - 0.1 [facility] x10(3)/[facility] LABORATORY Immature Gran [...] Address City/State/[place] [address] (ABNORMAL) Hemogram (08/07/2017 7:30 AM EST) Analysis Performed At Patho logist Time Signature WBC 9.7 (H) 4.0 - 9.5 [facility] x10(3)/[facility] LABORATORY RBC 3.54 (L) 4.58 - [facility] 5.[facility] x10(6)/[facility] LABORATORY Hemoglobin 9.9 (L) 13.7 - [facility] 16.5 gm/dL [facility] LABORATORY Hematocrit 32.3 (L) 40.5 - [facility] 48.5 % [facility] LABORATORY MCV 91.2 82.9 - [facility] 93.1 [facility] LABORATORY MCH 28.0 27.5 - [facility] 32.[address] [facility] LABORATORY MCHC 30.7 (L) 32.0 - [facility] 35.7 gm/dL [facility] LABORATORY Platelets 312 145 - 357 [facility] x10(3)/[facility] LABORATORY RDWSD 53.2 (H) 36.0 - [facility] 45.0 [facility] RDWCV 16.0 (H) 11.4 - [facility] 13.8 % [facility] LABORATORY MPV 8.9 7.6 - 12.9 [facility] LABORATORY nRBC % Auto 0.0 % [facility] LABORATORY nRBC Abs Auto 0.000 0.000 - [facility] 0.000 [facility] x10(3)/[facility] LABORATORY Specimen Anatomical Collection Method Collection Time Receive d Time (Source) Location / / Volume Laterality Blood specimen 08/07/2017 7:30 AM 018 7:45 (specimen) EST AM EST Resulting Agency Comment Spec In Lab Yonathan Smith MD HEMATOLOGY ORDERABLES Performing Organization Address City/State/[place] [address] (ABNORMAL) Basic Metabolic Panel (non-fasting) (08/07/2017 7:30 AM EST) P athologist Signature Glucose Lvl 80 65 - 199 [facility] mg/dL [facility] [...] or in patients with acute kidney failure. [email or web address] [email or web address] Specimen Anatomical Collection Method Collection Time Receive d Time (Source) Location / / Volume Laterality Blood specimen 08/07/2017 7:30 AM 018 7:45 (specimen) EST AM EST Resulting Agency Comment Spec In Lab Yonathan Smith MD CHEMISTRY ORDERABLES Performing Organization Address City/[facility]/ZIP Code Phon e Number [address] POCT Glucose (08/07/2017 7:27 AM EST) athologist Signature POC Glucose 81 65 - 199 [facility] mg/dL [facility] [...] City/[facility]/ZIP Code Phon e Number [address] APTT (08/07/2017 7:04 AM EST) athologist Signature PTT 34 25 - 35 sec [facility] LABORATORY Comment: The recommended therapeutic range for fu ll dose, unfractionated heparin at [facility] is 80 ? 114 seconds. The use [...] Smith MD HEMATOLOGY ORDERABLES Performing Organization Address City/[facility]/ZIP Code Phon e Number [address] (ABNORMAL) Prothrombin Time (08/07/2017 [...] Address City/State/ZIP Code Phon e Number [address] POCT Glucose (08/07/2017 4:03 AM EST) athologist Signature POC Glucose 93 65 - 199 [facility] mg/dL [facility] [...] Address City/State/ZIP Code Phon e Number [address] POCT Glucose (08/07/2017 12:04 AM EST) athologist Signature POC Glucose 107 65 - 199 [facility] mg/dL [facility] [...] Address City/State/ZIP Code Phon e Number [address] POCT Glucose (08/06/2017 7:56 PM EST) P athologist Signature POC Glucose 178 65 - 199 [facility] mg/dL [facility] LABORATORY Comment: [...] Address City/State/ZIP Code Phon e Number [address] TcPO2 (08/06/2017 2:32 PM EST) Component Value Ref Test Analysis Performed At Patholo gist Range Method Time Signature VB Text Department: Vascular Surgery Lab VASCUBASE Report Patient: [id number] (GREGORY HOANG) CPT: [id number] ICD10: I99.8 Referring Physician: YONATHAN SMITH ?? [...] Chiquis Mcgrath, VAMSI)2024 (Given - Provider: Mira rTuong, RN) 0800 (Given - Provider: Dory Truong, [...] documented in this encounter Care Teams Supervisor Dried Yeast Relationship Specialty Start Date End Date Lovely Vicente MD PCP - General 04/16/[address] [place] [address] documented as of this encounter
--- OUTSIDE RECORDS SUMMARY | 2022-04-01 10:07 | XMS_ITS | Encounter Summary ---
:1945 Author Organization [facility] [address] Care Team Providers Name Role Phone Lovely Vicente MD Primary Care Provider Reason for Visit Reason Comments Follow-up Encounter Details Date Type Department Care Team Description 07/29/2017 Office Visit Cardiac Surgery at [facility] Yuan Retana MD S/P CABG x [address] [facility] [place] [address] CARDIOTHORACIC SURGERY [phone] [place], [place] [address] (Wo rk) Social History [...] evaluation by vascular surgery. Yuan Retana MD [phone] documented in this encounter Plan of Treatment Upcoming Encounters Date Type Specialty Care Team Description 05/28/2022 Appointment Cardiology Zulma Dolan MD [facility] [address] [place] [address] (Wo rk) 05/28/2022 Laboratory Appointment Lab 05/28/2022 Office Visit Cardiology Zulma Dolan MD [facility] [place] [address] Liz Poole PA [facility] [place] [address] 06/10/2022 Office Visit Dermatology Laura Scherer MD [facility] ER [address] [place], [place] [address] (Wo rk) documented as of this encounter Visit Diagnoses Diagnosis S/P CABG x 3 Postsurgical aortocoronary bypass status documented in this encounter Care Teams Swatch Clerk Relationship Specialty Start Date End Date Lovely Vicente MD PCP - General 04/16/[address] [place] [address] documented as of this encounter
--- OUTSIDE RECORDS SUMMARY | 2022-04-01 10:07 | XMS_ITS | Encounter Summary ---
:1945 Author Organization [facility] Address 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, unspecified detention insulin use status [phone] [id number] Social History Tobacco Use Types Packs/Day Years [...] Zulma Dolan MD [facility] er [address] [place], [place] [address] (Wo rk) 05/28/2022 Laboratory Appointment Lab 05/28/2022 Office Visit Cardiology Zulma Dolan MD [facility] [place] [address] Liz Poole PA [facility] [place] [place] [address] 06/10/2022 Office Visit Dermatology Laura Scherer MD [facility] [address] [place], [place] [address] (Wo rk) Scheduled Orders Name Type Priority Associated Diagnoses Order S chedule Lab Use Only, Fax Lab Routine Coronary arter y rupture Expected: 07/29/2017 Request Ischemic cardiom yopathy (Approximate), Atherosclerosis of wiyot Ex jose: 07/29/2018 coronary artery, angina presence unspecified, unspecified whether wiyot or transplanted heart Essential hypertension, malignant documented as of this encounter Results Uric acid (08/04/2017 12:55 PM EST) P athologist Signature Uric Acid 7.1 3.5 - 8.5 [facility] mg/dL [facility]OR[facility] Specimen Anatomical Collection Method Collection Time Receive d Time (Source) Location / / Volume Laterality Blood specimen 08/04/2017 12:55 8 1:01 (specimen) PM EST PM EST Resulting Agency Comment Spec In Lab Lovely Vicente MD CHEMISTRY ORDERABLES Performing Organization Address City/State/[place] [address] (ABNORMAL) Hemogram (08/04/2017 12:55 PM EST) Analysis Performed At Patho logist Time Signature WBC 15.8 (H) 4.0 - 9.5 [facility] x10(3)/[facility] LABORATORY RBC 3.48 (L) 4.58 - [facility] 5.54 [facility] x10(6)/[facility] LABORATORY Hemoglobin 9.9 (L) 13.7 - [facility] 16.5 gm/dL [facility] Hematocrit 31.4 (L) 40.5 - KATALINA DAVIS 48.5 % [facility] MCV 90.2 82.9 - [facility] LABORATORY MCH 28.4 27.5 - [place] RYAN 32.1 pg [facility] MCHC 31.5 (L) 32.0 - [facility] ZHAORYAN 35.7 gm/dL [facility] Platelets 310 145 - 357 [facility] x10(3)/[facility] LABORATORY RDWSD 51.8 (H) 36.0 - [place] RYAN 45.[address] [facility] LABORATORY RDWCV 15.8 (H) 11.4 - [facility] 13.8 % [facility]OR[facility] MPV 8.9 7.6 - 12.9 [facility] LABORATORY nRBC % Auto 0.0 % [facility] LABORATORY nRBC Abs Auto 0.000 0.000 - [facility] 0.000 [facility] x10(3)/[facility] LABORATORY Specimen Anatomical Collection Method Collection Time Receive d Time (Source) Location / / Volume Laterality Blood specimen 08/04/2017 12:55 8 1:01 (specimen) PM EST PM EST Resulting Agency Comment Spec In Lab Lovely Vicente MD HEMATOLOGY ORDERABLES Performing Organization Address City/State/ZIP Code Phon e Number [place] [id number] LAB[address]ORY [address] (ABNORMAL) Comprehensive metabolic panel (non-fasting) (08/04/2017 12:55 PM EST) P athologist Signature Glucose Lvl 208 (H) 65 - 199 [facility] mg/dL [facility] Comment: Diabetes: >=200 mg/dL plus symp toms BUN 32 (H) 10 - 20 mg/dL [facility] LABOR[facility] Creatinine 1.58 (H) 0.80 - 1.50 mg/dL [facility] LABOR[facility]ORY Sodium 136 135 - 145 mmol/L [facility] LABOR[facility]ORY Potassium 5.5 (H) 3.5 - 5.0 mmol/L [facility] [...] 10.5 mg/dL [facility] Total Protein 6.9 6.1 - [...] or in patients with acute kidney failure. [email or web address] Specimen Anatomical Collection Method Collection Time Receive d Time (Source) Location / / Volume Laterality Blood specimen 08/04/2017 12:55 8 1:01 (specimen) PM EST PM EST Resulting Agency Comment Spec In Lab Lovely Vicente MD CHEMISTRY ORDERABLES Performing Organization Address City/State/[place] [address] (ABNORMAL) Hemoglobin A1c (08/04/2017 [...] Est Avg Gluc See note mg/dL [facility] DAVIS [facility] Comment: Estimated Average Glucose [...] with hemoglobinopathies. Additional resources are available on [facility] ADA website. Macario HAMMOND, Ruthann J, Deysi R, et al. ??Tr anslating the A1C assay into estimated average glucose values. ??Diabetes Care 2008:31(8):6943-2582. Specimen Anatomical Collection Method Collection Time Receive d Time (Source) Location / / Volume Laterality Blood specimen 08/04/2017 12:55 8 1:01 (specimen) PM EST PM EST Resulting Agency Comment Spec In Lab Lovely Vicente MD CHEMISTRY ORDERABLES Performing Organization Address City/State/[place] [address] (ABNORMAL) Prothrombin Time (08/04/2017 [...] Organization Address City/State/[place] [address] documented in this encounter Visit Diagnoses Diagnosis Coronary artery rupture Acute myocardial infarction, unspecified site, episode of care unspecified Ischemic cardiomyopathy Other specified forms of chronic ischemi c heart disease Atherosclerosis of wiyot coronary arter y, angina presence unspecified, unspecified whether wiyot or transplanted heart Essential hypertension, malignant Diabetes mellitus due to underlying cond ition with diabetic nephropathy, unspecified detention insulin use status documented in this encounter Care Teams Hip Hop Dancer Relationship Specialty Start Date End Date Lovely Vicente MD PCP - General 04/16/[address] [place] [address] documented as of this encounter
--- OUTSIDE RECORDS SUMMARY | 2022-04-01 10:07 | XMS_ITS | Encounter Summary ---
:1945 [place] [address] Care Team Providers Name Role Phone Lovely Vicente MD Primary Care Provider Encounter Details Date Type Department Care Team Description 07/16/2017 Telephone Endocrinology at [facility] Manuela Holliday, [facility] [place] [address] ENDOCRINOLOGY DEPT [phone] [place], [place] [address] (Wo rk) Social History Tobacco [...] Dolan MD [facility] [place], [place] [address] (Wo rk) 05/28/2022 Laboratory Appointment Lab 05/28/2022 Office Visit Cardiology Zulma Dolan MD [facility] [place] [address] Liz Poole PA [facility] [place] [address] 06/10/2022 Office Visit Dermatology Laura Scherer MD [facility] [address] [place], [place] [address] (Wo rk) documented as of this encounter Visit Diagnoses Not on filedocumented in this encounter Care Teams Boilermaker Industrial Boilers Relationship Specialty Start Date End Date Lovely Vicente MD PCP - General 04/16/[address] [place] [address] documented as of this encounter
--- OUTSIDE RECORDS SUMMARY | 2022-04-01 10:07 | XMS_ITS | Encounter Summary ---
:1945 Author Organization [facility] [place] [address] Care Team Providers Name Role Phone Lovely Vicente MD Primary Care Provider Reason for Visit Auth/Cert Specialty Diagnoses / Procedures Referred By Contact Refer red To Contact Diagnoses Critical lower limb ischemia CELLULITIS RT FOOT Procedures EMERGENCY Referral ID Status Reason Start Date Expiration Date Visits Requ ested Visits Authorized [id number] 1 1 Encounter Details Date Type Department Care Team Description 08/04/2017 [facility] [place] [facility] of [facility] [place] [phone] Social History Tobacco Use Types Packs/Day Years [...] Zulma Dolan MD [facility] [place], [place] [address] (Wo rk) 05/28/2022 Laboratory Appointment Lab 05/28/2022 Office Visit Cardiology [place]ulma [place] [address] Liz Poole PA [facility] [place] [address] 06/10/2022 Office Visit Dermatology Laura Scherer MD [facility] [address] [place], [place] [...] Ref Test Analysis Performed At [facility] Range Method Time Signature VB Text Department: Vascular Surgery Lab VASCUBASE Report Patient: [id number] (DON HOANG) CPT: 09247 ICD10: I82.541 Referring Physician: MEÑO HUTSON ?? [...] extremity documented in this encounter Care Teams Giant Tire Repairer Relationship Specialty Start Date End Date Lovely Vicente MD PCP - General 04/16/[address] [place] [address] documented as of this encounter
--- OUTSIDE RECORDS SUMMARY | 2022-04-01 10:07 | XMS_ITS | Encounter Summary ---
:1945 Author Organization [facility] [place] [address] Care Team Providers Name Role Phone Lovely Vicente MD Primary Care Provider Encounter Details Date Type Department Care Team Description 08/03/2017 Telephone Pain Management at [facility] [place], [place] [address] Social History Tobacco Use Types Packs/Day [...] Management Center Preauthorization Request Patient: Don Fatima [id number] Fax received from [facility] requesting we obtain prior authorization for Lidocaine Patches prescribed by Barbra Soares APRN. RX insurance plan: [facility] insurance telephone: [phone] Patient ?? Diagnosis: right foot pain secondary to PVD and ischemia ?? Previous medications attempted: Tylenol, Tramadol, Dilaudid Authorization/Reference number: [id number], PBP Code 801 _x_ denied, provider and patient informed _x_ appeal initiated by provider, patient informed Angeles Rodrigez, RN documented in this encounter Plan of Treatment Upcoming Encounters Date Type Specialty Care Team Description 05/28/2022 Appointment Cardiology Zulma Dolan MD [facility] [place], [place] [address] (Wo rk) 05/28/2022 Laboratory Appointment Lab 05/28/2022 Office Visit Cardiology Zulma Dolan MD [facility] [place] [address] Liz Poole PA [facility] [place] [address] 06/10/2022 Office Visit Dermatology Laura Scherer MD [facility] DR [address] [place], [place] [address] (Wo rk) documented as of this encounter Visit Diagnoses Not on filedocumented in this encounter Care Teams Joss House Keeper Relationship Specialty Start Date End Date Lovely Vicente MD PCP - General 04/16/[address] [place] [address] documented as of this encounter
--- OUTSIDE RECORDS SUMMARY | 2022-04-01 10:07 | XMS_ITS | Encounter Summary ---
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 Hank Zhang Vascular Surgery, PGY2 Pager #[phone] Associated attestation - Arik Clement MD - [...] Cardiology Zulma Dolan MD [facility] [place], [place] [address] (Wo rk) 05/28/2022 Laboratory Appointment Lab 05/28/2022 Office Visit Cardiology Zulma Dolan MD [facility] [place] [address] Liz Poole PA [facility] [place] [address] 06/10/2022 Office Visit Dermatology Laura Scherer MD [facility] [address] [place], [place] [address] (Wo rk) documented as [...] Component Value Ref Test Analysis Performed At [facility] Range Method Time Signature VB Text Department: Vascular Surgery Lab VASCUBASE Report Patient: [id number] (GREGORY FATIMA) CPT: 31756 ICD10: I82.541 Referring Physician: TAMIKO JIMÉNEZ ?? [...] 65 - 199 [facility] mg/dL [facility] LABORATORY [...] Address City/State/ZIP Code Phon e Number [address] (ABNORMAL) D-Dimer, Quantitative (07/29/2017 2:15 PM EST) [facility] [employer] Method Time Signature D-Dimer, Quant 1,699 (H) 0 - 500 [facility] FEU ng/ml [facility] Comment: The D-Dimer assay is [...] Organization Address City/State/[place] [address] (ABNORMAL) Differential, Automated (07/29/2017 2:15 PM EST) [facility] [employer] Method Time Signature Neutrophils % 82.5 % [facility] LABORATORY Neutr Abs (ANC) 10.21 (H) 1.70 - [facility] 6.10 [facility] x10(3)/[facility] L LABORATORY Lymphocytes % 7.1 % [facility] LABORATORY Lymphocytes Abs 0.9 0.9 - 3.2 [facility] x10(3)/[facility] LABORATORY Monocytes % 6.5 % [facility] LABORATORY Monocyte Abs 0.8 0.3 - 0.9 [facility] x10(3)/[facility] LABORATORY Eosinophils % 2.7 % [facility] LABORATORY Eosinophils Abs 0.3 0.0 - 0.4 [facility] x10(3)/[facility] LABORATORY Basophils % 0.6 % [facility] LABORATORY Basophils Abs 0.1 0.0 - 0.1 [facility] x10(3)/[facility] LABORATORY Immature Gran % 0.60 % [facility] [...] Abs 0.08 (H) 0.00 - 0.04 x10(3)/[facility] LABORATORY Specimen Anatomical Collection Method Collection Time Receive d Time (Source) Location / / Volume Laterality Blood specimen 07/29/2017 2:15 PM 018 2:36 (specimen) EST PM EST Resulting Agency Comment Spec In Lab Tamiko Jiménez MD HEMATOLOGY ORDERABLES Performing Organization Address City/State/ZIP [place] [address] (ABNORMAL) Hemogram (07/29/2017 2:15 PM EST) Analysis Performed At Patho logist Time Signature WBC 12.4 (H) 4.0 - 9.5 [facility] x10(3)/[facility] LABORATORY RBC 4.17 (L) 4.58 - [facility] 5.54 [facility] x10(6)/[facility] LABORATORY Hemoglobin 12.1 (L) 13.7 - [facility] 16.5 gm/dL [facility] LAB[facility]ORY Hematocrit 38.1 (L) 40.5 - [facility] 48.5 % [facility] LABORATORY MCV 91.4 82.9 - [facility] 93.1 [facility] LABORATORY MCH 29.0 27.5 - [facility] 32.1 pg [facility] LABORATORY MCHC 31.8 (L) 32.0 - [facility] RYAN 35.7 gm/dL [facility] LABORATORY Platelets 204 145 - 357 [facility] x10(3)/[facility] LABORATORY RDWSD 50.5 (H) 36.0 - [facility] 45.0 [facility] LABORATORY RDWCV 15.3 (H) 11.4 - [facility] RYAN 13.8 % [facility] LABORATORY MPV 9.4 7.6 - 12.9 [facility] LABORATORY nRBC % Auto 0.0 % [facility] LABORATORY nRBC Abs Auto 0.000 0.000 - [facility] 0.000 [facility] x10(3)/[facility] LABORATORY Specimen Anatomical Collection Method Collection Time Receive d Time (Source) Location / / Volume Laterality Blood specimen 07/29/2017 2:15 PM 018 2:36 (specimen) EST PM EST Resulting Agency Comment Spec In Lab Tamiko Jiménez MD HEMATOLOGY ORDERABLES Performing Organization Address City/State/ZIP [place] [address] (ABNORMAL) Prothrombin Time (07/29/2017 2:15 PM EST) P athologist Signature PT 24.4 (H) 11.8 - 14.0 [facility] LABORATORY INR 2.2 (H) 0.9 - 1.1 [facility] [...] Organization Address City/State/ZIP Code Phon e Number [place] [id number] HOSPITAL LAB[address]ORY Drive Arterial Duplex Leg, Unil (07/29/2017 11:50 AM EST) Component Value Ref Test Analysis Performed At [facility] Range Method Time Signature VB Text Department: Vascular Surgery Lab VASCUBASE Report Patient: [id number] (GREGORY FATIMA) CPT: 86187 ICD10: Z09;I97.610 Referring Physician: TAMIKO JIMÉNEZ ?? [...] Component Value Ref Test Analysis Performed At [facility] Range Method Time Signature VB Text Department: Vascular Surgery Lab VASCUBASE Report Patient: [id number] (GREGORY FATIMA) CPT: 74638 ICD10: I82.441 Referring Physician: TAMIKO JIMÉNEZ ?? [...] additional thrombus in t he calf. Notification: Marqius Pathak MD (pager #[phone]) was notif ied of the preliminary findings. [...] STAT documented in this encounter Care Teams Sales Ledger Administrator Relationship Specialty Start Date End Date Lovely Vicente MD PCP - General 04/16/[address] [place] [address] [address] [place] [address] documented as of this encounter
--- OUTSIDE RECORDS SUMMARY | 2022-04-01 10:07 | XMS_ITS | Encounter Summary ---
:1945 [place] [address] Care Team Providers Name Role Phone Lovely Vicente MD Primary Care Provider Reason for Visit Reason Onset Date Comments Questions 07/16/2017 fluid retention Encounter Details Date Type Department Care Team Description 07/16/2017 Telephone Cardiology at [facility] Martha Comer, Questions ([facility] RN retention ) [place] [address] Social History Tobacco Use Types Packs/Day [...] the direct number to the HF team ([phone]). She is aware of his appt with AUTOMOTIVE MANAGER Hans on 07/21/17 and the need for labs prior to that visit. verbalized good understanding of the current POC. documented in this encounter Plan of Treatment Upcoming Encounters Date Type Specialty Care Team Description 05/28/2022 Appointment Cardiology Zulma Dolan MD [facility] [address] [place], [place] [address] (Wo rk) 05/28/2022 Laboratory Appointment Lab 05/28/2022 Office Visit Cardiology Zulma Dolan MD [place] [address] Liz Poole PA [facility] [place] [address] 06/10/2022 Office Visit Dermatology Laura Scherer MD [facility] [address] [place], [place] [address] (Wo rk) documented as of this encounter Visit Diagnoses Not on filedocumented in this encounter Care Teams Stitch Bonding Machine Operator Relationship Specialty Start Date End Date Lovely Vicente MD PCP - General 04/16/[address] [place] [address] documented as of this encounter
--- OUTSIDE RECORDS SUMMARY | 2022-04-01 10:07 | XMS_ITS | Encounter Summary ---
:1945 Author Organization [facility] [place] [address] Care Team Providers Name Role Phone Lovely Vicente MD Primary Care Provider Reason for Visit Reason Onset Date Comments Other 07/22/2017 lovenox bridge Encounter Details Date Type Department Care Team Description 07/22/2017 Telephone Cardiology at [facility] Court Cadena RN Other (lovenox bridge) [place] [address] Social History Tobacco Use Types Packs/Day [...] 4:49 PM EST VAMSI Del Castillo, at [facility], called earlier today with a question re: lovenox bridge for this patient who was recently discharged from [facility] r/t a blood clot. Discharge note faxed to [facility] (fax# [phone], Ph#: [phone]) which contains instructions r/t lovenox bridge as follows: Anticoagulation: on lovenox bridge to therapeutic coumadin for AFib. Goal INR 2-3. At discharge INR=1.5. The lovenox injections can stop when INR >2, coumadin will continue indefinitely. documented in this encounter Plan of Treatment Upcoming Encounters Date Type Specialty Care Team Description 05/28/2022 Appointment Cardiology Zulma Dolan MD [facility] [place], [place] [address] (Wo rk) 05/28/2022 Laboratory Appointment Lab 05/28/2022 Office Visit Cardiology Zulma Dolan MD [facility] [place] [address] Liz Poole PA [facility] [place] [address] 06/10/2022 Office Visit Dermatology Laura Scherer MD [facility] [address] [place], [place] 0[address] (Wo rk) documented as of this encounter Visit Diagnoses Not on filedocumented in this encounter Care Teams Electric Gas Appliances Demonstrator Relationship Specialty Start Date End Date Lovely Vicente MD PCP - General 04/16/15 [facility] [address] [place] [address] documented as of this encounter
--- OUTSIDE RECORDS SUMMARY | 2022-04-01 10:07 | XMS_ITS | Encounter Summary ---
:1945 [place] [address] Care Team Providers Name Role Phone Lovely Vicente MD Primary Care Provider Encounter Details Date Type Department Care Team Description 07/29/2017 Hospital Encounter Vascular Lab at [facility] mon[facility] Huber lower limb [facility] [place] [address] Social History Tobacco Use Types Packs/Day Years [...] Zulma Dolan MD [facility] [place], [place] [address] (Wo rk) 05/28/2022 Laboratory Appointment Lab 05/28/2022 Office Visit Cardiology Zulma Dolan MD [facility] [place] [address] [facility] [place] [address] 06/10/2022 Office Visit Dermatology Laura Scherer MD [facility] [address] [place], [place] [address] (Wo rk) documented as of this encounter Visit Diagnoses Diagnosis Critical lower limb ischemia Unspecified circulatory system disorder documented in this encounter Care Teams Delivery Director Relationship Specialty Start Date End Date Lovely Vicente MD PCP - General 04/16/[address] [place] [address] documented as of this encounter
--- OUTSIDE RECORDS SUMMARY | 2022-04-01 10:07 | XMS_ITS | Encounter Summary ---
:1945 Author Organization [facility] [place] [address] Care Team Providers Name Role Phone Lovely Vicente MD Primary Care Provider Reason for Visit Reason Comments Foot Pain Auth/Cert Specialty Diagnoses / Procedures Referred By Contact Refer red To Contact Diagnoses Ischemic foot Procedures NAYE OBSVO Referral ID Status Reason Start Date Expiration Date Visits Requ ested Visits Authorized [id number] 1 1 Encounter Details Date Type Department Care Team Description 07/27/2017 Emergency 1 [facility] Lokesh Swenson MD [facility] [place] [address] Femoral artery pseudo-aneurysm, right; [facility] Tam Bauman MD [facility] [place] [address] [place] [address] Social History Tobacco Use Types Packs/Day [...] Gregory Fatima Patient Age: 72 y.o. Language: Lebanese Race: White Ethnicity: Not nor Admit date: [...] please contact your inpatient physician through the [facility] [employer] . Issues after hours and on weekends [...] RLE critical limb ischemia, who presented to [facility] with worsening RLE pain. Pt post-op course after CABG was significant for paroxysmal Afib, and he was started on Coumadin given elevated [id number] score. He presented 2 weeks following that, on 07/20, with RLE pain/pallor andwas found to have critical limb ischemia in setting of subtherapeutic INR, pseudoaneurysm Rt SPANISH TRANSLATOR and occlusion b/l ant tibial arteries. He [...] in the last 7068 hours. Invalid input(s): [id number] Recent Labs 07/08/17 0400 07/07/17 0515 07/06/17 [...] (it was low at 1.6 here at [facility]) 7. Use the tramadol if dilaudid or tylenol is not working 8. Stop taking the potassium supplement - your blood potassium level was elevated. Ask your doctors at future visits if this should be restarted. 9. Antibiotic for 5 days recommended by cardiothoracic surgery for chest wound drainage Follow-Up Appointments Vascular surgery as previously schedule Your Inpatient Doctor(s) at [facility]: CARLOS ALBERTO ROSALES MD General Instructions None Future Appointments and Orders Future Appointments Provider Department Dept Phone 07/30/2017 8:30 AM OSWALDO, THREE L Lab 3L [facility] [phone] 07/30/2017 9:40 AM Danette Maxwell APRN Cardiology at [place] [phone] 08/04/2017 1:00 PM Daniele Mooney [place] Vascular Lab at [place] [phone] 08/04/2017 2:15 PM Arik Clement MD Vascular Surgery at [place] [phone] 08/11/2017 10:00 AM [facility] ROOM 2 XRay at [place] [phone] Please go to Metal Technician Area 3T ([place] Location). 08/11/2017 11:00 AM Yuan Retana MD Cardiac Surgery at [place] [phone] 09/07/2017 3:00 PM LAB, THREE L Lab 3L [facility] [phone] 09/07/2017 4:00 PM Luz Prescott MD Endocrinology at [place] [phone] Discharge References/Attachments None documented in this encounter [...] (it was low at 1.6 here at [facility]) 3. Use the tramadol if dilaudid or tylenol is not working 4. Stop taking the potassium supplement - your blood potassium level was elevated. Ask your doctors at future visits if this should be restarted. 5. Antibiotic for 5 days recommended by cardiothoracic surgery for chest wound drainage Follow-Up Appointments Vascular surgery as previously schedule Your Inpatient Doctor(s) at [facility]: CARLOS ALBERTO ROSALES MD documented in this [...] Gas) No results found for: PHART, PO2ART, LMN0GNA Assessment/Plan: 72 y.o. male s/p CABG in [...] intervention: Education Nutrition Recommendations: Recommend continuation of [facility], CHO2 diet order Patient and denied need [...] Orders Diet Daily Healthy Menu Choices/Cardiac diet ([facility]-Diet) 60/ CHO counting level 2 Frequency: Effective Now Number of Occurrences: Until Specified Admit Weight: 83.92 kg Estimated body mass index is 28.13 kg/(m^2) as calculated from the following: Height as of this encounter: 172.7 cm (5' 8). Weight as of this encounter: 83.9 kg (185 lb). [place] body weight: 68.4 kg (150 lb 12.7 [...] RLE critical limb ischemia, who presented to [facility] with worsening RLE pain. Visited with patient [...] spent >30 minutes (Day of Discharge Code 20829) involved in the final examination of the [...] Melanoma ID: 72 y.o. Male presents to [facility] with persistent pain b/l lower extremities History of Present Illness: HPI 72 y.o. male with PMH ASCVD s/p CABG (07/07/17), MARIA VICTORIA on CPAP QHS, HTN, HLD, DM2, with recent hospitalization for RLE critical limb ischemia, who presented to [facility] with worsening RLE pain. Pt post-op course after CABG was significant for paroxysmal Afib, and he was started on Coumadin given elevated [id number] score. He presented 2 weeks following that, on 07/20, with RLE pain/pallor andwas found to have critical limb ischemia in setting of subtherapeutic INR, pseudoaneurysm Rt SPANISH TRANSLATOR and occlusion b/l ant tibial arteries. He [...] Procedure Component Value Units Date/Time Blood culture [[id number]] Collected: 07/09/1739 Lab Status: Final result Specimen: Blood from Arm, Right Updated: 07/14/17701 Blood Culture No growth at 5 days. Blood culture [[id number]] Collected: 07/09/170 Lab Status: Final result Specimen: [...] limb ischemia following CABG, who presented to [facility] ED from home with persistent B/L LE [...] continued Diet Daily Healthy Menu Choices/Cardiac diet ([facility]-Diet) 60/60/75 CHO counting level 2Cardiac, low salt, CHO 2 Discharge planning Pending improvement in pain control PT/OT/Speech PT ordered Lines/Access PIV Ocasio catheter No DVT/GI Prophylaxis Lovenox bridge to Coumadin, SCD. Code status Full Code Family PCP Lovely Vicente MD [phone] Attestation Please see my note for details [...] encounter Miscellaneous Notes Plan of Care - [place]-Joyce Damian, PT - 07/27/2017 3:26 PM EST [...] Anticipated Discharge Disposition: home with assist Pager: [phone] JOYCE KING, PT Inpatient Physical Therapy 2017 [...] patient's evaluation including the following functional test(s) [facility]. Current ability measures, co-morbidities and clinical [...] a lovenox bridge. Mr. Fatima returns to [facility] ED tonight because of ongoing pain in [...] at [facility] MAIN OR MEDICATIONS: No current [...] in clinic 1-[address] [facility] Vascular Surgery Plan of Care - [...] Dolan MD [facility] [place], [place] [address] (Wo rk) 05/28/2022 Laboratory Appointment Lab 05/28/2022 Office Visit Cardiology Zulma Dolan MD [facility] [place] [address] Liz Poole PA [facility] [place] [address] 06/10/2022 Office Visit Dermatology Laura Scherer MD [facility] [address] [place], [place] [address] (Wo rk) documented as of [...] section. TYPE AND SCREEN STAT 07/27/2017 12:53 ([facility]/CGP/SHANDA) AM EST BASIC METABOLIC PANEL STAT 07/27/2017 12:53 Re sults for this (NON-FASTING) AM EST procedure are in the results section. documented in this encounter Results POCT Glucose (07/27/2017 11:53 AM EST) P athologist Signature POC Glucose 175 65 - 199 [facility] mg/dL [facility] Comment: [...] Organization Address City/State/[place] [address] Arterial Duplex Leg, Unil (07/27/2017 7:40 AM EST) Component Value Ref Test Analysis Performed At Patholo gist Range Method Time Signature VB Text Department: Vascular Surgery Lab VASCUBASE Report Patient: [id number] (GREGORY FATIMA) CPT: 32921 ICD10: I97.610;I72.4;Z09 Referring Physician: TAM BAUMAN ?? [...] Bauman MD VASCULAR ORDERABLES Performing Organization Address City/[facility]/ZIP Code Phon e Number VASCUBASE POCT Glucose (07/27/2017 6:51 AM EST) P athologist Signature POC Glucose 96 65 - 199 [facility] mg/dL [facility] Comment: Supplemental ranges: <140 mg/dL before meals <180 mg/dL all other times of the day Specimen Anatomical Collection Method Collection Time Receive d Time (Source) Location / / Volume Laterality Blood specimen 07/27/2017 6:51 AM 018 6:51 (specimen) EST AM EST Tam Bauman MD POINT OF CARE TEST ORDERABLE S Performing Organization Address City/[facility]/ZIP [facility] Phon e Number [address] ABORH Recheck Status (07/27/2017 12:53 AM EST) Patholo gist Method Time Signature ABORH Type Completed [facility] LABORATORY Specimen Anatomical Collection Method Collection Time Receive d Time (Source) Location / / Volume Laterality Blood specimen 07/27/2017 12:53 8 (specimen) AM EST 12:58 AM EST Resulting Agency Comment Spec In Lab Angela Swenson MD BLOOD BANK ORDERABLES Performing Organization Address City/[facility]/[place] [address] Gold Tube HOLD (07/27/2017 12:53 AM EST) P athologist Signature Gold Hold Sample in [facility]. [facility] Specimen Anatomical Collection Method Collection Time Receive d Time (Source) Location / / Volume Laterality Blood specimen Venous Draw / 07/27/2017 12:53 07/27/19 18 1:01 (specimen) Unknown AM EST AM EST Angela Swenson MD CHEMISTRY ORDERABLES Performing Organization Address City/State/[place] [address] (ABNORMAL) Differential, Automated (07/27/2017 12:53 AM EST) Patholo gist Method Time Signature Neutrophils % 75.0 % [facility] Neutr Abs (ANC) 11.30 (H) 1.70 - [facility] 6.10 [facility] x10(3)/[facility] LABORATORY Lymphocytes % 9.9 % [facility] Lymphocytes Abs 1.5 0.9 - 3.2 [facility] x10(3)/[facility] LABORATORY Monocytes % 8.6 % [facility] Monocyte Abs 1.3 (H) 0.3 - 0.9 [facility] x10(3)/[facility] LABORATORY Eosinophils % 4.8 % [facility] Eosinophils Abs 0.7 (H) 0.0 - 0.4 [facility] x10(3)/[facility] LABORATORY Basophils % 0.8 % [facility] Basophils Abs 0.1 0.0 - 0.1 [facility] x10(3)/[facility] LABORATORY Immature Gran % 0.90 % [...] Abs 0.13 (H) 0.00 - 0.04 x10(3)/[facility] LABORATORY Specimen Anatomical Collection Method Collection Time Receive d Time (Source) Location / / Volume Laterality Blood specimen 07/27/2017 12:53 8 1:00 (specimen) AM EST AM EST Resulting Agency Comment Spec In Lab Angela Swenson MD HEMATOLOGY ORDERABLES Performing Organization Address City/State/[place] [address] (ABNORMAL) Hemogram (07/27/2017 12:53 AM EST) Analysis Performed At Patho logist Time Signature WBC 15.0 (H) 4.0 - 9.5 [facility] x[facility](3[facility] LABORATORY RBC 3.59 (L) 4.58 - [facility] 5.54 [facility] x10(6)/[facility] LABORATORY Hemoglobin 10.3 (L) 13.7 - [facility] 16.5 gm/dL [facility] Hematocrit 32.6 (L) 40.5 - [facility] 48.5 % [facility] MCV 90.8 82.9 - [facility] 93.1 [facility] LABORATORY MCH 28.7 27.5 - [facility] RYAN 32.1 pg [facility] MCHC 31.6 (L) 32.0 - [facility] 35.7 gm/dL [facility] Platelets 322 145 - 357 [facility] x10(3)/[facility] RDWSD 48.7 (H) 36.0 - [facility] RYAN 45.0 [facility] LABORATORY RDWCV 14.7 (H) 11.4 - [facility] RYAN 13.8 % [facility] MPV 8.9 7.6 - 12.9 [facility] LABORATORY nRBC % Auto 0.0 % [facility] nRBC Abs Auto 0.000 0.000 - [facility] RYAN 0.000 [facility] x10(3)/[facility] LABORATORY Specimen Anatomical Collection Method Collection Time Receive d Time (Source) Location / / Volume Laterality Blood specimen 07/27/2017 12:53 8 1:00 (specimen) AM EST AM EST Resulting Agency Comment Spec In Lab Angela Swenson MD HEMATOLOGY ORDERABLES Performing Organization Address City/State/[place] [address] Antibody screen (07/27/2017 12:53 AM EST) Patholo gist Method Time Signature Ab Screen Negative [facility] LABORATORY Expires at 07/30/2017 KATALINA ZHAORYAN [id number] on: [facility] Specimen Anatomical Collection Method Collection Time Receive d Time (Source) Location / / Volume Laterality Blood specimen 07/27/2017 12:53 8 (specimen) AM EST 12:58 AM EST Resulting Agency Comment Spec In Lab Angela Swenson MD BLOOD BANK ORDERABLES Performing Organization Address City/[facility]/[place] [address] ABO/Rh Typing (07/27/2017 12:53 AM EST) P athologist Signature ABORh Type O Pos [facility]OR[facility] Specimen Anatomical Collection Method Collection Time Receive d Time (Source) Location / / Volume Laterality Blood specimen 07/27/2017 12:53 8 (specimen) AM EST 12:58 AM EST Resulting Agency Comment Spec In Lab Angela Swenson MD BLOOD BANK ORDERABLES Performing Organization Address City/[facility] [place] [address] (ABNORMAL) Prothrombin Time (07/27/2017 12:53 AM EST) P athologist Signature PT 19.1 (H) 11.8 - 14.0 [facility] [...] City/State/[place] [address] (ABNORMAL) Basic Metabolic Panel (non-fasting) (07/27/2017 12:53 AM EST) athologist Signature Glucose Lvl 95 65 - 199 [facility] mg/dL [facility] Comment: Diabetes: [...] or in patients with acute kidney failure. 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
Routine documented in this encounter Care Teams Spinning Frame Cleaner Relationship Specialty Start Date End Date Lovely Vicente MD PCP - General 04/16/15 [facility] [address] [facility] [address] [place] [address] documented as of this encounter
--- OUTSIDE RECORDS SUMMARY | 2022-04-01 10:07 | XMS_ITS | Encounter Summary ---
:1945 Author Organization [facility] [place] [address] Care Team Providers Name Role Phone Lovely Vicente MD Primary Care Provider Encounter Details Date Type Department Care Team Description 08/02/2017 Telephone Pain Management at [place], [place] [address] Social History Tobacco Use Types Packs/Day [...] Management Center Preauthorization Request Patient: Don Fatima [id number] Fax received from [facility] requesting we obtain prior authorization for Lidocaine patches prescribed by Barbra Soares APRN. RX insurance plan: [employer] RX insurance telephone: [phone] Patient Diagnosis: right foot pain secondary to PVD and ischemia Previous medications attempted: Tylenol, Tramadol, Dilaudid The following action was taken after discussion with the imaging services director: _x_ pharmacy informed Authorized dosage or amount: 5% on patch on for 12 hours, then remove for 12 hours. Angeles Rodrigez, RN documented in this encounter Plan of Treatment Upcoming Encounters Date Type Specialty Care Team Description 05/28/2022 Appointment Cardiology Zulma Dolan MD [facility] [place], [place] [address] (Wo rk) 05/28/2022 Laboratory Appointment Lab 05/28/2022 Office Visit Cardiology Zulma Dolan [place] [facility] [address] Liz Poole PA [facility] [place] [address] 06/10/2022 Office Visit Dermatology Laura Scherer MD [facility] [address] [place], [place] [address] (Wo rk) documented as of this encounter Visit Diagnoses Not on filedocumented in this encounter Care Teams Printer Apprentice Relationship Specialty Start Date End Date Lovely Vicente MD PCP - General 04/16/[address] [place] [address] documented as of this encounter
--- OUTSIDE RECORDS SUMMARY | 2022-04-01 10:07 | XMS_ITS | Encounter Summary ---
:1945 [place] [address] Care Team Providers Name Role Phone Lovely Vicente MD Primary Care Provider Encounter Details Date Type Department Care Team Description 08/03/2017 Hospital Encounter Radiology Library at [place], Tommy Mijares [facility] [address] VASCULAR SURGERY [phone] [place], [place] [address] (Wo rk) Social History [...] Zulma Dolan MD [facility] [address] [place], [place] [address] (Wo rk) 05/28/2022 Laboratory Appointment Lab 05/28/2022 Office Visit Cardiology Zulma Dolan MD [facility] [place] [address] Liz Poole PA [facility] [place] [address] 06/10/2022 Office Visit Dermatology Laura Scherer MD [facility] [address] [place], [place] [address] (Wo rk) documented as [...] Time Received Time / Laterality Volume Narrative [facility] - 08/03/2017 6:03 PM EST This exam is for storage only and is aut o-finalizing. Arik Clement MD G FILM LIBRARY ORDERABLES Performing Organization Address City/State/ZIP Code Phon e Number [place], [place] documented in this encounter Visit Diagnoses Diagnosis Pain Generalized pain documented in this encounter Care Teams Redrawer Relationship Specialty Start Date End Date Lovely Vicente MD PCP - General 04/16/[address] [place] [address] documented as of this encounter
--- OUTSIDE RECORDS SUMMARY | 2022-04-01 10:07 | XMS_ITS | Encounter Summary ---
:1945 [place] [address] Care Team Providers Name Role Phone Lovely Vicente MD Primary Care Provider Encounter Details Date Type Department Care Team Description 07/29/2017 Telephone Pain Aurelia Crawford MD [facility] [place] [address] PAIN CLINIC [phone] [place], [place] [address] (Wo rk) Social History Tobacco [...] Cardiology Zulma Dolan MD [facility] [address] [place], [place] [address] (Wo rk) 05/28/2022 Laboratory Appointment Lab 05/28/2022 Office Visit Cardiology Zulma Dolan MD [facility] [place] [address] Liz Poole PA [facility] [place] [address] 06/10/2022 Office Visit Dermatology Laura Scherer MD [facility] [address] [place], [place] [address] (Wo rk) documented as of this encounter Visit Diagnoses Not on filedocumented in this encounter Care Teams Dock Grader Relationship Specialty Start Date End Date Lovely Vicente MD PCP - General 04/16/[address] [place] [address] [address] [place] [address] documented as of this encounter
--- OUTSIDE RECORDS SUMMARY | 2022-04-01 10:07 | XMS_ITS | Encounter Summary ---
:1945 [place] [address] Care Team Providers Name Role Phone Lovely Vicente MD Primary Care Provider Reason for Visit Reason Comments Hospital Transfer cold foot post CABG Auth/Cert Specialty Diagnoses / Procedures Referred By Contact Refer red To Contact Diagnoses Critical lower limb ischemia Procedures NAYE IPI Referral ID Status Reason Start Date Expiration Date Visits Requ ested Visits Authorized [id number] 1 1 Encounter Details Date Type Department Care Team Description 07/20/2017 Hospital Encounter 4 Herminia Ibarra MD [facility] [place] [address] Critical lower limb [facility] Arik Clement MD [facility] [place] [address] [place] [address] Social History Tobacco Use Types Packs/Day Years [...] home. Important Studies and Lab Data: Labs: APSXgs Lab Results Component Value Date INR 1.5 [...] For any problems or questions please call [phone] ZELDA Smith, etymology teacher Nurse Clinician For issues on weeknights after 5pm and weekends please call [phone] and ask for the Vascular Fellow marble installation helper. General Instructions None Future Appointments and Orders Future Appointments Provider Department Dept Phone 08/04/2017 1:00 PM Daniele Mooney [place] [facility] [place] [phone] 08/04/2017 2:15 PM Arik Clement MD [facility] Surgery [facility] [place] [phone] 09/07/2017 3:00 PM MAYRA CHACON Lab [facility] [phone] 09/07/2017 4:00 PM Luz Prescott MD Endocrinology at [place] [phone] Future Orders Complete By Expires Arterial Duplex Leg, Unil [VAS32 Custom] 07/27/2017 (Approximate) 01/26/2018 Process Instructions: There is no in-house vascular laborer high density press available on weeknights (5pm-8am), weekends, or holidays. IF THIS IS A REQUEST FOR AN EMERGENT STUDY DURING THOSE HOURS, please have the senior provider responsible for the patient page the Vascular Surgery Fellow/Senior Resident marble installation helper to discuss options. Scheduling Instructions: Questions: Indication for study/signs & symptoms: Right femoral PSA s/p cardiac cath Question to be answered: bloodflow to PSA Laterality: Right Is there a RIGHT LOWER EXTREMITY graft?: No Lower limb right segments: Common Femoral Is there a stent?: No At which location will this be performed?: [place] Referral to Home Health - at DISCHARGE [WRR2420 CPT(R)] As directed Process Instructions: Scheduling Instructions: Comments: DOCUMENTATION FOR VNA SERVICES (INCLUDING THOSE PATIENTS WITH MEDICARE COVERAGE REQUIRING HOME VNA SERVICES AND/OR HOSPICE SERVICES) PATIENT'S LOCATION: Gregory Fatima [address] [place] [address] [place] [phone] (home) Cell: Telephone Information: Stone Decorator's Name: self In discussion with the attending physician, it is certified that this patient is under their care and that they, or a Nurse Practitioner,Clinical Nurse specialist or Physician Construction Assistant who is working directly with them, [...] ([facility] [place] [facility]-is in [place]) PHONE: [phone] FAX: [phone] Start of care: 24- 48 hours FOR [...] patient'sPCP: Lovely Vicente MD [address] [facility] [place] / [place] [address] All VNA agencies which cover the area [...] For any problems or questions please call [phone] ZELDA Smith, etymology teacher Nurse Clinician For issues on weeknights after 5pm and weekends please call [phone] and ask for the Vascular Fellow marble installation helper. documented in this encounter Medications at Time [...] RN - 07/20/2017 2:53 PM EST The patient/promotional representative has been provided a list of Home Health Agencies/DME vendors which serve their preferred geographic area. A letter describing our affiliations was reviewed with them and theywere educated about their right to choose where referrals are placed. Patient requests referral to [facility]. PHONE: [phone] FAX: [phone]. Expected date of discharge: 07/20/2017 . Referral routed to the Metal Trades Instructor for matching with agency/vendor and to provide any required information. Naty Pulliam RN - 07/20/2017 11:37 AM EST The patient/promotional representative has been provided a list of Home Health Agencies/DME vendors which serve their preferred geographic area. A letter describing our affiliations was reviewed with them and theywere educated about their right to choose where referrals are placed. Patient requests referral to [facility] ([facility] [place] [facility]- is in [facility] PHONE: [phone] FAX: [phone]. Expected date of discharge: 07/20/2017 . Referral routed to the Metal Trades Instructor for matching with agency/vendor and to provide any required information. Katina Pulliam RNsemiconductor dies loader Janneth Lee MD - 07/20/2017 7:29 AM [...] [facility] MA[facility] OR ??? PRO CABG, ARTERIAL, SINGLE N/A 07/07/2017 @CABG, USING ARTERIAL GRAFT;SINGLE ARTERIAL GRAFT (WRVU 33.75) performed by Yuan Retana MD at [facility] MAIN OR ??? PRO CABG, ARTERY-VEIN, TWO N/A 07/07/2017 @CABG, TWO VENOUS GRAFTS & ARTERIAL GRAFT (WRVU 7.93) performed by Yuan Retana MD at [facility] MAIN OR ??? PRO COLONOSCOPY, REMV LESN, SNARE 01/16/2014 COLONOSCOPY, POLYPECTOMY, REMOVAL LESION BY SNARE performed by Nohemi Jaimes MD at [facility] ENDOSCOPY ??? PRO ENDOSCOPY W/VIDEO-ASST VEIN HARVEST, CABG Right 07/07/2017 ENDOSCOPIC HARVEST VEIN(S) FOR CABG (WRVU 0.31) performed by Yuan Retana MD at [facility] MAIN OR ??? PRO THYROIDECTOMY 03/28/2013 THYROIDECTOMY, TOTAL OR COMPLETE performed by Manny Mcknight MD at [facility] MAIN OR Functional Status/Social Hx: [...] -ISS -pain control Discussed with Vascular Fellow marble installation helper. Chris Valadez MD PGY2 Pager [phone] documented in this encounter ED Notes Annita Reaves MD - 07/20/2017 3:15 PM EST Emergency Department Gregory Fatima is a 72 y.o. male who presents to [facility] with arterial thrombosis. History [...] Days: [facility] 07/05/17 Anticipated Length Of [...] Health/Prescription Coverage: Primary Insurance: MEDICARE Secondary Insurance: [employer] [facility] Prescription Coverage: See above Preferred Pharmacy: [facility] Other: N/A Primary Care Provider: Lovely Vicente MD [phone] Patient/Caregiver Goals of Treatment: Patient plans to return home when medically ready Potential Needs for Transition of Care: Rehab/SNF: N/A Home Health: Yasmani Munguia ([facility] [place] [facility]-is in [place]) PHONE: [phone] FAX: [phone] DME: N/A Dialysis: N/A Community Resources: N/A Transportation: Patient family will transport Other: N/A Anticipated Barriers to Discharge/Special Considerations: None Plan: Patient plans to return home with home health services when medically ready A member of the Care Management team will continue to monitor progress, follow for continuity of care and assist with transition of care planning. Naty Pulliam, RN Pager: [phone] ED Triage - Rayna Weir RN - 07/20/2017 12:28 AM EST Pt transferred from [place] for blue right foot and painful toes. [...] Zulma Dolan MD [facility] [place] [address] (Wo rk) 05/28/2022 Laboratory Appointment Lab 05/28/2022 Office Visit Cardiology Zulma Dolan MD [facility] [place] [address] Liz Poole PA [facility] [place] [address] 06/10/2022 Office Visit Dermatology Laura Scherer MD [facility] DR TE[address]MAT [place], [place] [address] (Wo rk) documented as of this encounter Procedures Procedure Name Priority Date/Time Associated Comments Diagnosis METAL TRADES INSTRUCTOR SCAN 09/02/2017 12:00 Res ults for this [...] TO LAB EST procedure are i n ([facility] the results section. APTT [...] documented in this encounter Results SCAN DOC: METAL TRADES INSTRUCTOR (09/02/2017 12:00 AM EST) Narrative 09/02/2017 12:00 AM EST This result has an attachment that is no t available. Ordered by an unspecified provider. Scanning Provider MEDIA MGR SCAN EXT ORDR/RSLT POCT Glucose (07/20/2017 12:04 PM EST) P athologist Signature POC Glucose 189 65 - 199 [facility] mg/dL [facility] [...] Organization Address City/State/[place] [address] (ABNORMAL) Differential, Automated (07/20/2017 10:34 AM EST) Patholo gist Method Time Signature Neutrophils % 84.3 % [facility] LABORATORY Neutr Abs (ANC) 14.27 (H) 1.70 - [facility] 6.10 [facility] x10(3)/[facility] LABORATORY Lymphocytes % 5.6 % [facility] LABORATORY Lymphocytes Abs 1.0 0.9 - 3.2 [facility] x10(3)/[facility] LABORATORY Monocytes % 6.1 % [facility] LABORATORY Monocyte Abs 1.0 (H) 0.3 - 0.9 [facility] x10(3)/[facility] LABORATORY Eosinophils % 2.4 % [facility] LABORATORY Eosinophils Abs 0.4 0.0 - 0.4 [facility] x10(3)/[facility] LABORATORY Basophils % 0.5 % [facility] LABORATORY Basophils Abs 0.1 0.0 - 0.1 [facility] x10(3)/[facility] LABORATORY Immature Gran % 1.10 % [facility] LABORATORY Comment: Immature granulocytes(IG's)percentage an d absolute count will include metamyelocytes, myelocytes, and promyelo cytes. Blood smears from CBCs yielding IG's will be scanned manually for concor dance. If this scan disagrees with the automated IG or if promyelocytes are not ed, a manual differential will be performed. Melisa Gran Abs 0.19 (H) 0.00 - 0.04 x10(3)/[facility] LABORATORY Specimen Anatomical Collection Method Collection Time Receive d Time (Source) Location / / Volume Laterality Blood specimen 07/20/2017 10:34 7 (specimen) AM EST 10:39 AM EST Resulting Agency Comment Spec In Lab Arik Clement MD HEMATOLOGY ORDERABLES Performing Organization Address City/State/[place] [address] (ABNORMAL) Hemogram (07/20/2017 10:34 AM EST) Analysis Performed At Patho logist Time Signature WBC 17.0 (H) 4.0 - 9.5 [facility] x[facility](3[facility] LABORATORY RBC 3.70 (L) 4.58 - [facility] 5.54 [facility] x10(6)/[facility] LABORATORY Hemoglobin 10.8 (L) 13.7 - [facility] 16.5 gm/dL [facility] LABORATORY Hematocrit 33.4 (L) 40.5 - [facility] 48.5 % [facility] LABORATORY MCV 90.3 82.9 - [facility] 93.1 [facility] LABORATORY MCH 29.2 27.5 - [facility] RYAN 32.1 pg [facility] LABORATORY MCHC 32.3 32.0 - [facility] RYAN 35.7 gm/dL [facility] LABORATORY Platelets 211 145 - 357 [facility] x10(3)/[facility] LABORATORY RDWSD 49.1 (H) 36.0 - [facility] RYAN 45.0 [facility] LABORATORY RDWCV 14.7 (H) 11.4 - [facility] RYAN 13.8 % [facility] LABORATORY MPV 9.2 7.6 - 12.9 [facility] nRBC % Auto 0.0 % [facility] LABORATORY nRBC Abs Auto 0.000 0.000 - [place] RYAN 0.000 [facility] x10(3)/[facility] LABORATORY Specimen Anatomical Collection Method Collection Time Receive d Time (Source) Location / / Volume Laterality Blood specimen 07/20/2017 10:34 7 (specimen) AM EST 10:39 AM EST Resulting Agency Comment Spec In Lab Arik Clement MD HEMATOLOGY ORDERABLES Performing Organization Address City/State/[place] [address] (ABNORMAL) APTT (07/20/2017 10:34 AM EST) athologist Signature PTT 79 (H) 25 - [address] [facility] [facility] [...] Clement MD HEMATOLOGY ORDERABLES Performing Organization Address City/[facility]/[place] [address] POCT Glucose (07/20/2017 7:41 AM EST) athologist Signature POC Glucose 174 65 - 199 [facility] mg/dL [facility] LABORATORY Comment: Supplemental ranges: <140 mg/dL before meals <180 mg/dL all other times of the day Specimen Anatomical Collection Method Collection Time Receive d Time (Source) Location / / Volume Laterality Blood specimen 07/20/2017 7:41 AM 017 7:41 (specimen) EST AM EST Arik Clement MD POINT OF CARE TEST ORDERABLE S Performing Organization Address City/[facility]/ZIP Code Phon e Number [address] JULIAN, legs, multiple levels (07/20/2017 7:33 AM EST) Component Value Ref Test Analysis Performed At Patholo gist Range Method Time Signature VB Text Department: Vascular Surgery Lab VASCUBASE Report Patient: [id number] (GREGORY FATIMA) CPT: 86635 ICD10: I75.021;I99.8 Referring Physician: ARIK CLEMENT ?? [...] Department: Vascular Surgery Lab VASCUBASE Report Patient: [id number] (GREGORY FATIMA) CPT: 10493 ICD10: I97.610;I99.8 Referring Physician: ARIK CLEMENT ?? [...] Signature POC Glucose 199 65 - 199 [facility] mg/dL [facility] LABORATORY Comment: Supplemental ranges: <140 mg/dL before meals <180 mg/dL all other times of the day Specimen Anatomical Collection Method Collection Time Receive d Time (Source) Location / / Volume Laterality Blood specimen 07/20/2017 3:41 AM 017 3:41 (specimen) EST AM EST Arik Clement MD POINT OF CARE TEST ORDERABLE S Performing Organization Address City/[facility]/ZIP [facility] [place] [address] Lactate, whole blood, send to lab (Leb/CGP) (07/20/2017 2:25 AM EST) athologist Signature Lactate WB 2.0 0.5 - 2.2 [facility] mmol/L [facility] LABORATORY Specimen Anatomical Collection Method Collection Time Receive d Time (Source) Location / / Volume Laterality Blood specimen Venous Draw / 07/20/2017 2:25 AM 2016 2:37 (specimen) Unknown EST AM EST Resulting Agency Comment Spec In Lab Zulma Samuel MD CHEMISTRY ORDERABLES Performing Organization Address City/[facility] Code Phon e Number [address] (ABNORMAL) APTT (07/20/2017 2:25 AM EST) athologist Signature PTT 36 (H) 25 - [address] [facility] [facility] [...] Reaves MD HEMATOLOGY ORDERABLES Performing Organization Address City/[facility]/[place] [address] (ABNORMAL) Prothrombin Time (07/20/2017 2:25 AM EST) athologist Signature PT 17.7 (H) 11.8 - 14.0 [facility] [...] Organization Address City/State/[place] [address] (ABNORMAL) Basic Metabolic Panel (non-fasting) (07/20/2017 2:25 AM EST) P athologist Signature Glucose Lvl 187 65 - 199 [facility] mg/dL [facility] LABORATORY Comment: Diabetes: >=200 mg/dL plus symp toms BUN 35 (H) 10 - 20 mg/dL [facility] LABORATORY Creatinine 1.51 (H) 0.80 - 1.50 mg/dL [facility] LABORATORY Sodium 134 (L) 135 - 145 mmol/L [facility] LABORATORY Potassium Not Perf 3.5 - 5.0 mmol/L [facility] LABORATORY Comment: Specimen hemolyzed. Called by: [...] Chloride 92 (L) 98 - 107 mmol/L [facility] LABORATORY CO2 29 22 - 31 mmol/L [facility] LAB[facility]ORY Anion Gap 13 5 - 15 mmol/L [facility] LABORATORY Calcium 8.6 8.5 - 10.5 mg/dL [facility] LABORATORY Estimated GFR 46 (L) >=60 [facility] LABORATORY Comment: The reported eGFR should be multiplied b y 1.2 for patients. The MDRD is not an appropriate measure o f renal function for patients with body mass extremes or in patients with acute kidney failure. http://Poundworld/DHnkdep http://Poundworld/DHMCnkf Specimen Anatomical Collection Method Collection Time Receive d Time (Source) Location / / Volume Laterality Blood specimen 07/20/2017 2:25 AM 017 2:33 (specimen) EST AM EST Resulting Agency Comment Spec In Lab Annita Reaves MD CHEMISTRY ORDERABLES Performing Organization Address City/State/ZIP Code Phon e Number [place] [phone] documented in this encounter [...]
Routine documented in this encounter Care Teams Layaway Clerk Relationship Specialty Start Date End Date Lovely Vicente MD PCP - General 04/16/[address] [place] [address] documented as of this encounter
--- OUTSIDE RECORDS SUMMARY | 2022-04-01 10:07 | XMS_ITS | Encounter Summary ---
:1945 Author Organization [facility] [place] [address] Care Team Providers Name Role Phone Lovely Vicente MD Primary Care Provider Encounter Details Date Type Department Care Team Description 07/29/2017 Transcribe Orders Laboratory Lovely Vicente MD [address] [address] [place] [address] [phone] (Wo rk) Social History Tobacco Use Types [...] Zulma Dolan MD [facility] er [address] [place] [address] (Wo rk) 05/28/2022 Laboratory Appointment Lab 05/28/2022 Office Visit Cardiology Zulma Dolan MD [facility] [place] [address] Liz Poole PA [facility] [place] [address] 06/10/2022 Office Visit Dermatology Laura Scherer MD [facility] ER [address] [place], [place] [address] (Wo rk) documented as of this encounter Visit Diagnoses Not on filedocumented in this encounter Care Teams Front Office Assistant Relationship Specialty Start Date End Date Lovely Vicente MD PCP - General 04/16/[address] [place] [address] documented as of this encounter
--- OUTSIDE RECORDS SUMMARY | 2022-04-01 10:07 | XMS_ITS | Encounter Summary ---
:1945 Author Organization [place] [address] Care Team Providers Name Role Phone Lovely Vicente MD Primary Care Provider Reason for Visit Reason Comments Deep Vein Thrombosis Auth/Cert Specialty Diagnoses / Procedures Referred By Contact Refer red To Contact Diagnoses Critical lower limb ischemia CELLULITIS RT FOOT Procedures EMERGENCY Referral ID Status Reason Start Date Expiration Date Visits Requ ested Visits Authorized [id number] 1 1 Encounter Details Date Type Department Care Team Description 08/04/2017 Office Visit Vascular Surgery at Arik Clement Cr itical lower limb [facility] ischemia [facility] [place] VASCULAR SURGERY [id number] [place] [address] [phone] Social History Tobacco Use Types Packs/Day Years [...] was discharged on Coumadin. ??He presented to [facility] on 07/20 with mottled toes on [...] Zulma Dolan MD [facility] [place] [address] Liz Poole PA [facility] [place] [address] 06/10/2022 Office Visit Dermatology Laura Scherer MD [facility] ER [address] [place], [place] [address] (Wo rk) documented as of this encounter Visit Diagnoses Diagnosis Critical lower limb ischemia Unspecified circulatory system disorder documented in this encounter Care Teams Measurement And Verification Engineer Relationship Specialty Start Date End Date Lovely Vicente MD PCP - General 04/16/15 [facility] [address] [place], [place] [address] documented as of this encounter
--- OUTSIDE RECORDS SUMMARY | 2022-04-01 10:07 | XMS_ITS | Encounter Summary ---
:1945 Author Organization [facility] [place] [address] Care Team Providers Name Role Phone Lovely Vicente MD Primary Care Provider Reason for Visit Reason Comments Pain Management Ankle Pain Toe Pain Encounter Details Date Type Department Care Team Description 07/30/2017 Office Visit Pain Management at [facility], Per ipheral neuropathy Edmonson MONUMENTAL STONEMASON due to ischemia [facility] [address], [place], [place] [phone] Social History Tobacco Use Types Packs/Day Years [...] APRN - 07/30/2017 1:45 PM EST [facility] [place] [address] Phone: PAIN MANAGEMENT NEW PATIENT / CONSULTATION NOTE DATE OF VISIT 07/30/2017 Patient Don Fatima 1945 REFERRING PROVIDER Lovely Vicente MD [address] [place] [id number] PRIMARY CARE PROVIDER Lovely Vicente MD CHIEF [...] much relief PAST THERAPIES: Nothing MEDICATIONS The [place] Prescription Monitoring Program was checked and no [...] SETUP performed by Manny Mcknight MD at [facility] OR ??? PRO CABG, ARTERIAL, SINGLE N/A 07/07/2017 @CABG, USING ARTERIAL GRAFT;SINGLE ARTERIAL GRAFT (WRVU 33.75) performed by Yuan Retana MD at [facility] OR ??? PRO CABG, ARTERY-VEIN, [...] 0.31) performed by Yuan Retana MD at [facility] OR ??? PRO THYROIDECTOMY 03/28/2013 [...] referral, Lovely Vicente MD [address] [place] [address]. [facility], MSN, ENVIRONMENTAL SOLUTIONS ENGINEER-BC, MONUMENTAL STONEMASON Nurse Practitioner [facility] Center documented in this encounter Plan of Treatment Upcoming Encounters Date Type Specialty Care Team Description 05/28/2022 Appointment Cardiology Zulma Dolan MD [facility] [place], [place] [address] (Wo rk) 05/28/2022 Laboratory Appointment Lab 05/28/2022 Office Visit Cardiology Zulma Dolan MD [facility] [place] [address] Liz Poole PA [facility] [place] [address] 06/10/2022 Office Visit Dermatology Laura Scherer MD [facility] DR [address] [place], [place] [address] (Wo rk) documented as of this encounter Visit Diagnoses Diagnosis 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
--- OUTSIDE RECORDS SUMMARY | 2022-04-01 10:07 | XMS_ITS | Encounter Summary ---
:1945 Author Organization [place] [address] Care Team Providers Name Role Phone Lovely Vicente MD Primary Care Provider Encounter Details Date Type Department Care Team Description 07/24/2017 Telephone Vascular Surgery Melba Bob [facility] [place] [address] [facility] [phone] VASCULAR SURGERY [place], [place] [address] (Wo rk) Social History Tobacco [...] discharged on Coumadin. ??He presented to [facility] on 07/20 with mottled [...] [facility] [address] [place] [address] (Wo rk) 05/28/2022 Laboratory Appointment Lab 05/28/2022 Office Visit Cardiology Zulma Dolan MD [facility] [place] [address] Liz Poole PA [facility] [place] [address] 06/10/2022 Office Visit Dermatology Laura Scherer MD [facility] DR [address] [place], [place] [address] (Wo rk) documented as of this encounter Visit Diagnoses Not on filedocumented in this encounter Care Teams Boot Lace Cutter Machine Relationship Specialty Start Date End Date Lovely Vicente MD PCP - General 04/16/[address] [place] [address] documented as of this encounter
--- OUTSIDE RECORDS SUMMARY | 2022-04-01 10:07 | XMS_ITS | Encounter Summary ---
:1945 Author Organization [facility] [place] [address] Care Team Providers Name Role Phone Lovely Vicente MD Primary Care Provider Encounter Details Date Type Department Care Team Description 07/29/2017 Transcribe Orders Laboratory Lovely Vicente MD [address] [address] [place] [address] [phone] (Wo rk) Social History Tobacco Use Types [...] MD [facility] er [address] [place] [address] (Wo rk) 05/28/2022 Laboratory Appointment Lab 05/28/2022 Office Visit Cardiology Zulma Dolan MD [facility] [place] [address] Liz Poole PA [facility] [place] [address] 06/10/2022 Office Visit Dermatology Laura Scherer MD [facility] ER DR [address] [place], [place] [address] (Wo rk) documented as of this encounter Visit Diagnoses Not on filedocumented in this encounter Care Teams Induction Heat Treater Relationship Specialty Start Date End Date Lovely Vicente MD PCP - General 04/16/[address] [place] [address] documented as of this encounter
--- OUTSIDE RECORDS SUMMARY | 2022-04-01 10:07 | XMS_ITS | Encounter Summary ---
:1945 Author Organization [facility] Address [facility] [place] [address] Care Team Providers Name Role Phone Lovely Vicente MD Primary Care Provider Reason for Visit Auth/Cert Specialty Diagnoses / Procedures Referred By Contact Refer red To Contact Diagnoses Critical lower limb ischemia CELLULITIS RT FOOT Procedures EMERGENCY Referral ID Status Reason Start Date Expiration Date Visits Requ ested Visits Authorized [id number] 1 1 Encounter Details Date Type Department Care Team Description 08/04/2017 Laboratory Lab 3L Barbara Cardiomyopathy, unspecified type; Appointment [facility] Systolic congestive heart failure, unspecified congestive heart failure chronicity; Hospital Coronary artery rupture; [facility] Ischemic cardiomyopathy; Drive Atherosclerosis of [place] co ronary artery, angina presence unspecified, unspecified whether [place] or transplanted heart; [place], [place] Essential hyper tension, malignant; [id number] 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, unspecified self pay specialist insulin use status [phone] Social History Tobacco Use Types Packs/Day Years [...] [facility] [address] [address] (Wo rk) 05/28/2022 Laboratory Appointment Lab 05/28/2022 Office Visit Cardiology Zulma Dolan MD [facility] [place] [address] Liz Poole PA [facility] [place] [address] 06/10/2022 Office Visit Dermatology Laura Scherer MD [facility] ER DR [address] [place] [place], [place] [address] (Wo rk) documented as of this encounter Procedures Procedure Name Priority Date/Time Associated Diagnosis Comme nts HEMOGRAM Routine 08/04/2017 12:55 Essential Results for this PM EST hypertension, procedure are in malignant the results section. PROTHROMBIN TIME Routine 08/04/2017 12:55 Coronary artery Resu lts for this PM EST rupture procedure are in Ischemic the results cardiomyopathy section. Atherosclerosis of [place] coronary artery, angina presence unspecified, unspecified whether [place] or transplanted heart URIC ACID Routine 08/04/2017 [...] with the results diabetic section. nephropathy, unspecified group home insulin use status Essential hypertension, malignant COMPREHENSIVE Routine 08/04/2017 12:55 Essential Results fo r this METABOLIC PANEL PM EST hypertension, procedure a re in (NON-FASTING) malignant the results section. documented in this encounter Results Uric acid (08/04/2017 12:55 PM EST) P athologist Signature Uric Acid 7.1 3.5 - 8.5 [facility] mg/dL [facility] Specimen Anatomical Collection Method Collection Time Receive d Time (Source) Location / / Volume Laterality Blood specimen 08/04/2017 12:55 8 1:01 (specimen) PM EST PM EST Resulting Agency Comment Spec In Lab Lovely Vicente MD CHEMISTRY ORDERABLES Performing Organization Address City/[facility]/[place] [address] (ABNORMAL) Hemogram (08/04/2017 12:55 PM EST) Analysis Performed At Patho logist Time Signature WBC 15.8 (H) 4.0 - 9.5 [facility] x10(3)/[facility] LABORATORY RBC 3.48 (L) 4.58 - [facility] 5.54 [facility] x10(6)/[facility] LABORATORY Hemoglobin 9.9 (L) 13.7 - [facility] 16.[facility] gm/dL [facility] Hematocrit 31.4 (L) 40.5 - [facility] 48.5 % [facility] MCV 90.2 82.9 - [facility] 93.1 [facility] LABORATORY MCH 28.4 27.5 - [facility] 32.1 pg [facility] MCHC 31.5 (L) 32.0 - [facility] 35.7 gm/dL [facility] Platelets 310 145 - 357 [facility] x10(3)/[facility] LABORATORY RDWSD 51.8 (H) 36.0 - [facility] 45.0 [facility] LABORATORY RDWCV 15.8 (H) 11.4 - [facility] 13.8 % [facility] MPV 8.9 7.6 - 12.9 [facility] LABORATORY nRBC % Auto 0.0 % [facility] nRBC Abs Auto 0.000 0.000 - [facility] 0.000 [facility] x10(3)/[facility] LABORATORY Specimen Anatomical Collection Method Collection Time Receive d Time (Source) Location / / Volume Laterality Blood specimen 08/04/2017 12:55 8 1:01 (specimen) PM EST PM EST Resulting Agency Comment Spec In Lab Lovely Vicente MD HEMATOLOGY ORDERABLES Performing Organization Address City/State/[place] [address] (ABNORMAL) Comprehensive metabolic panel (non-fasting) (08/04/2017 12:55 PM EST) athologist Signature Glucose Lvl 208 (H) 65 - 199 [facility] mg/dL [facility] [...] Total Bilirubin 0.4 0.2 - 1.3 mg/dL [facility] Estimated GFR 43 (L) >=60 [facility] Comment: The reported eGFR should be multiplied b y 1.2 for patients. The MDRD is not an appropriate measure o f renal function for patients with body mass extremes or in patients with acute kidney failure. http://[employer]/DHnkdep http://[employer]/DHMCnkf Specimen Anatomical Collection Method Collection Time Receive d Time (Source) Location / / Volume Laterality Blood specimen 08/04/2017 12:55 8 1:01 (specimen) PM EST PM EST Resulting Agency Comment Spec In Lab Lovely Vicente MD CHEMISTRY ORDERABLES Performing Organization Address City/State/ZIP Code Phon e Number [place] [id number] (ABNORMAL) Hemoglobin A1c (08/04/2017 [...] Additional resources are available on [facility] website. Macario HAMMOND, Ruthann J, Deysi R, et al. ??Tr anslating the A1C assay into estimated average glucose values. ??Diabetes Care 2008:31(8):9831-1585. Specimen Anatomical Collection Method Collection Time Receive d Time (Source) Location / / Volume Laterality Blood specimen 08/04/2017 12:55 8 1:01 (specimen) PM EST PM EST Resulting Agency Comment Spec In Lab Lovely Vicente MD CHEMISTRY ORDERABLES Performing Organization Address [facility] [place] [place] [address] (ABNORMAL) Prothrombin Time (08/04/2017 [...] Vicente MD HEMATOLOGY ORDERABLES Performing Organization Address [facility] [place] [place] [address] (ABNORMAL) pro-Brain Natriuretic Peptide (08/04/2017 12:55 PM EST) P athologist Signature ProBNP 3,133 (H) <=125 [facility] pg/mL [facility] Specimen Anatomical Collection Method Collection Time Receive d Time (Source) Location / / Volume Laterality Blood specimen 08/04/2017 12:55 8 1:01 (specimen) PM EST PM EST Resulting Agency Comment Spec In Lab Danette Maxwell APRN CHEMISTRY ORDERABLES Performing Organization Address City/State/[place] [address] documented in this encounter Visit Diagnoses Diagnosis Cardiomyopathy, unspecified type Systolic congestive heart failure, unspe cified congestive heart failure chronicity Coronary artery rupture Acute myocardial infarction, unspecified site, episode of care unspecified Ischemic cardiomyopathy Other specified forms of chronic ischemi c heart disease Atherosclerosis of [place] coronary arter y, angina presence unspecified, unspecified whether [place] or transplanted heart Essential hypertension, malignant Diabetes mellitus due to underlying cond ition with diabetic nephropathy, unspecified self pay specialist insulin use status documented in this encounter Care Teams Steel Detailer Relationship Specialty Start Date End Date Lovely Vicente MD PCP - General 04/16/[address] [place] [address] documented as of this encounter
--- OUTSIDE RECORDS SUMMARY | 2022-04-01 10:07 | XMS_ITS | Encounter Summary ---
:1945 [place] [address] Care Team Providers Name Role Phone Lovely Vicente MD Primary Care Provider Encounter Details Date Type Department Care Team Description 08/03/2017 Hospital Encounter Radiology Library at [place], Tommy Mijares [facility] [place] [address] VASCULAR SURGERY [phone] [place], [place] [address] (Wo rk) Social History Tobacco [...] Dolan MD [facility] Dr [place], [place] [address] (Wo rk) 05/28/2022 Laboratory Appointment Lab 05/28/2022 Office Visit Cardiology Zulma Dolan MD [facility] [place] [address] Liz Poole PA [facility] [place] [address] 06/10/2022 Office Visit Dermatology Laura Scherer MD [facility] DR [address] [place], [place] [address] (Wo rk) documented as of [...] Time Received Time / Laterality Volume Narrative [facility] - 08/03/2017 6:01 PM EST This exam is for storage only and is aut o-finalizing. Arik Clement MD G FILM LIBRARY ORDERABLES Performing Organization Address City/State/ZIP Code Phon e Number [place], [place] documented in this encounter Visit Diagnoses Diagnosis Pain Generalized pain documented in this encounter Care Teams Photocopying Machine Operator Relationship Specialty Start Date End Date Lovely Vicente MD PCP - General 04/16/[address] [place] [address] documented as of this encounter
--- OUTSIDE RECORDS SUMMARY | 2022-04-01 10:07 | XMS_ITS | Encounter Summary ---
:1945 Author Organization [facility] [place] [address] Care Team Providers Name Role Phone Lovely Vicente MD Primary Care Provider Reason for Visit Auth/Cert Specialty Diagnoses / Procedures Referred By Contact Refer red To Contact Diagnoses Critical lower limb ischemia CELLULITIS RT FOOT Procedures EMERGENCY Referral ID Status Reason Start Date Expiration Date Visits Requ ested Visits Authorized [id number] 1 1 Encounter Details Date Type Department Care Team Description 08/04/2017 Office Visit Cardiology at [facility] Danette Maxwell Incisional pain; [facility] A, 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 Ischemic cardiomyopathy; [facility] ASCVD (arteriosclerotic card iovascular disease); [place], [place] Systolic heart failure, unspecified hear t failure chronicity [phone] CARDIOLOGY [phone] [place], [place] [address] Social History Tobacco Use Types [...] in this encounter Progress Notes Danette Maxwell, CHILDREN TEACHER - 08/04/2017 3:00 PM EST ID and [...] 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 [...] Dolan MD [facility] [address] [place], [place] [address] (Wo rk) 05/28/2022 Laboratory Appointment Lab 05/28/2022 Office Visit Cardiology Zulma Dolan [place] [facility] [place] [address] Liz Poole PA [facility] [place] [address] 06/10/2022 Office Visit Dermatology Laura Scherer MD [facility] [address] [place], [place] [address] (Wo rk) documented as of [...] sensation documented in this encounter Care Teams Film Editor Relationship Specialty Start Date End Date Lovely Vicente MD PCP - General 04/16/[address] [place] [address] documented as of this encounter
--- OUTSIDE RECORDS SUMMARY | 2022-04-01 10:09 | XMS_ITS | Encounter Summary ---
:1945 Author Organization [facility] [place] [address] Care Team Providers Name Role Phone Lovely Vicente MD Primary Care Provider Reason for Referral Consultation (Routine) - Closed Specialty Diagnoses / Referred By Contact Referred To Contact Procedures Cardiac Rehabilitation Diagnoses S/P CABG x 3 Yuan Webber, Cardiac Rehab, [address] [place], [place] CARDIOTHORACIC [address] [place] [address] Referral ID Status Reason Start Date Expiration Date Visits V isits Requested Authorized [id number] Closed Consult, 07/14/2017 01/10/2018 36 36 Test & Treat Reason for Visit Auth/Cert Specialty Diagnoses / Procedures Referred By Contact Refer red To Contact Diagnoses STEMI (ST elevation myocardial infarction) NSTEMI STEMI Procedures CARDIAC CATHETERIZATION NAYE IPI Referral ID Status Reason Start Date Expiration Date Visits Requ ested Visits Authorized [id number] 1 1 Encounter Details Date Type Department Care Team Description 07/05/2017 - Hospital Encounter Cardiac Special Daphne Shahid MD [facility] [place] [address] Non-ST elevation myocardial infarction ( NSTEMI); 07/14/2017 Care Unit Yuan Preciado MD [facility] DR CARDIOTHORACIC [place] [address] S/P CABG x 3 [place] [id number] Social History Tobacco Use Types Packs/Day Years [...] Patient Age: 72 y.o. Birthdate: 1945 Language: Namibian Race: White Ethnicity: Not nor Admit Date: [...] , @ 1:20p Patient to follow-up with [facility]/heart failure team in one week. An appointment will be made for you. You may call [phone] Patient to follow-up with Cardiac Surgery, Dr. Yuan Webber, in ~ 4 weeks with CXR, EKG. Inpatient Provider Contact Information: [facility] [place]iac [place] [facility] [place] [address] FAX [phone] Discharge Diagnoses (Hospital Problems) Primary Diagnoses: CAD [...] [facility] MAIN OR ??? PRO CABG, ARTERIAL, SINGLE N/A 07/07/2017 @CABG, USING ARTERIAL GRAFT;SINGLE ARTERIAL GRAFT (WRVU 33.75) performed by Yuan Webber MD at [facility] MAIN OR ??? PRO CABG, ARTERY-VEIN, TWO N/A 07/07/2017 @CABG, TWO VENOUS GRAFTS & ARTERIAL GRAFT (WRVU 7.93) performed by Yuan Webber MD at [facility] MAIN OR ??? PRO COLONOSCOPY, REMV LESN, SNARE 01/16/2014 COLONOSCOPY, POLYPECTOMY, REMOVAL LESION BY SNARE performed by Nohemi Jaimes MD at [facility] ENDOSCOPY ??? PRO ENDOSCOPY W/VIDEO-ASST VEIN HARVEST, CABG Right 07/07/2017 ENDOSCOPIC HARVEST VEIN(S) FOR CABG (WRVU 0.31) performed by Yuan Webber MD at [facility] MAIN OR ??? PRO THYROIDECTOMY 03/28/2013 THYROIDECTOMY, TOTAL OR COMPLETE performed by Manny Mcknight MD at [facility] MAIN OR Prior To Admission Medications Prescriptions Prior to Admission Medication Sig Dispense Refill Last Dose ??? levothyroxine (SYNTHROID) 175 mcg Tablet Take 1 tablet by mouth daily. 90 tablet 3 07/05/2017 [id number] ??? ascorbic acid, vitamin C, (VITAMIN C) [...] hospital and ruled infor non-ST segment elevation [place]. This almost certainly represents the residual of [...] Hospital Course: Gregory Hoang was admitted to [facility] on 07/05/2017 via the Cardiology Service. During his hospital course, he was taken emergently to the laboratory phlebotomist for an ongoing STEMI. An IABP was [...] not take or discontinue any prescription or xwce-iur-ugmpfvh medications without asking your doctor or pharmacist [...] to have your insulin doses adjusted. [facility] [place] [place] Endocrine clinic office Discharge [...] Yuan Webber and/or the Cardiac Surgery Physician Clothes Designer Team may be reached at . [...] Dr. Yuan Webber. You may use a Dales Track or treadmill but avoid any pulling [...] with the surgeon. Do not ride motorcycles, [employer]'s tractors or horses. Avoid the use of [...] should resume a low fat, low cholesterol, [place] Heart Association Diet/Diabetic diet. Driving: No driving [...] , @ 1:20p Patient to follow-up with [facility]/heart failure team in one week. Appointment will be made for you. You may call [phone] Patient to follow-up with Cardiac Surgery, Dr. Yuan Webber, in ~ 4 weeks with CXR, EKG. Cardiac Rehabilitation: Gregory Hoang was seen today regarding participation in the outpatient Phase 2 Cardiac Rehabilitation at [facility]. The patient agrees to a referral to this program. The referral will be sent at discharge and the patient should be contacted by the Program within 1- 2 weeks from discharge. ?? Future Appointments and Orders Future Appointments Provider Department Dept Phone 09/07/2017 3:00 PM LAB, THREE L Lab 3L [facility] [phone] 09/07/2017 4:00 PM Luz Prescott MD Endocrinology at [facility] [phone] Future Orders Complete By Expires EKG 12 Lead [EKG1 Custom] 08/14/2017 02/13/2018 Process Instructions: Scheduling Instructions: Questions: Which location will this be performed?: [facility] Is a rhythm strip needed?: No If EKG Reason is Pre-op Evaluation, indicate diagnosis for surgery.: XR Chest PA & Lateral (Generic) [01879 [id number] Custom] 08/14/2017 02/13/2018 Process Instructions: Scheduling Instructions: Questions: Where will study be performed?: [facility] Portable exam?: Reason for exam and clinical history: CABG x 3 Other pertinent information: Stat read required?: Date of injury if applicable: Requested Time: Referral to Cardiac Rehab [UHM714 Custom] As directed Process Instructions: If no progress note charted, please enter Clinical details in comments. Scheduling Instructions: Questions: My question or request is: s/p CABG. Cardiac rehab at [facility] Referral to Home Health - at DISCHARGE [DKR9321 CPT(R)] As directed Process Instructions: Scheduling Instructions: Comments: DOCUMENTATION FOR VNA SERVICES (INCLUDING THOSE PATIENTS WITH MEDICARE COVERAGE REQUIRING HOME VNA SERVICES AND/OR HOSPICE SERVICES) PATIENT'S LOCATION: Gregory Hoang [address] [place] [address] [place] [id number] (home) Telephone Information: Surgical Scheduler's Name: self In discussion with the attending physician, it is certified that this patient is under their care and that they, or a Nurse Practitioner, or Physician Clothes Designer who is working directly with them, [...] HEALTH AGENCY: [facility] ([facility] [place] [facility]-is in [place]) PHONE: [phone] FAX: [phone] RN orders: Cardiopulmonary assessment, incisional assessment, assess vital signs, assessment of rehab progress, medication management and effectiveness, home safety evaluation. Please draw INR if indicated and send result to:Dr Vicente [phone] PT ORDERS: Continue rehab for endurance, gait stability and strength with mobility and transfers. Home safety evaluation. Home exercise program if appropriate. Start of Care Date:24-48 hours after discharge SPECIAL INSTRUCTIONS: For any follow up questions, needs, or issues please call the Cardiac Surgery Office at [phone] FOR MEDICARE ONLY: (please delete this section [...] AFTER 07/17/2017 Signed: Martha Teague APRN [facility] [place] of [place]iac [place] [facility] [place] [address] FAX [phone] Date: 07/14/2017 CC: MD Ivania Cr Betsy, PA [address] [place] [phone] documented in this encounter Discharge Instructions Discharge InstructionsDeandre Kathie L, STCAIE - 07/14/2017 11:24 AM EST Diabetes and [...] to have your insulin doses adjusted. [facility] [place] Endocrine clinic office Patient [...] not take or discontinue any prescription or qeks-hvp-lspetos medications without asking your doctor or pharmacist [...] juice or regular (not diet) soda 6 FriendsEATs small box of raisins 4 glucose tablets [...] to have your insulin doses adjusted. [facility] Endocrine clinic office ? [...] Yuan Webber and/or the Cardiac Surgery Physician Clothes Designer Team may be reached at . [...] Dr. Yuan Webber. You may use a Dales Track or treadmill but avoid any pulling [...] with the surgeon. Do not ride motorcycles, [email or web address] tractors or horses. Avoid the use of [...] should resume a low fat, low cholesterol, [place] Heart Association Diet/Diabetic diet. ?? Driving: No [...] @ 1:20p ?? Patient to follow-up with [facility]/heart failure team in one week. An appointment has been made for you, you can call [phone] ?? Patient to follow-up with Cardiac Surgery, Dr. Yuan Webber, in ~ 4 weeks with CXR, EKG. ? Cardiac Rehabilitation: Gregory Hoang??was seen today regarding participation in the outpatient Phase 2 Cardiac Rehabilitation at [facility]. ?? The patient agrees to a referral to this program.? The referral will be sent at discharge and the patient should be contacted by the Program within 1- 2 weeks from discharge. ? Future Appointments and Orders Future Appointments Provider Department Dept Phone ?? 09/07/2017 3:00 PM LAB, THREE L Lab 3L [facility] [phone] ?? 09/07/2017 4:00 PM Luz Prescott MD Endocrinology at [facility] [phone] Future Orders Complete By Expires ?? EKG 12 Lead [EKG1 Custom] 08/14/2017 02/13/2018 ?? Process Instructions: ? Scheduling Instructions: ? Questions: ? Which location will this be performed?: [facility] ?? Is a rhythm strip needed?: No ?? If EKG Reason is Pre-op Evaluation, indicate diagnosis for surgery.: ?? XR Chest PA & Lateral (Generic) [[id number] Custom] 08/14/2017 02/13/2018 ?? Process Instructions: ? Scheduling Instructions: ? Questions: ? Where will study be performed?: [facility] ?? Portable exam?: ?? Reason for exam and clinical history: CABG x 3 ?? Other pertinent information: ?? Stat read required?: ?? Date of injury if applicable: ?? Requested Time: ?? Referral to Cardiac Rehab [JQY205 Custom] As directed ? Process Instructions: ?? If no progress note charted, please enter Clinical details in comments. ?? Scheduling Instructions: ? Questions: ? My question or request is: s/p CABG. Cardiac rehab at [facility] ? Arrangements for VNA/home care: [...] RN - 07/14/2017 2:34 PM EST The patient/artists' booking representative has been provided a list of Home Health Agencies/DME vendors which serve their preferred geographic area. A letter describing our affiliations was reviewed with them and theywere educated about their right to choose where referrals are placed. Patient requests referral to [facility] PHONE: [phone] FAX: [phone] Expected date of discharge: 07/14 Referral routed to the Table Maker for [...] to have your insulin doses adjusted. [facility] Endocrine clinic office Kathie Carrera APRN [facility] Endocrinology Diabetes Management Pager [phone] minutes of this 35 minute visit was spent with the patient in counseling on diabetes and treatment plan, reviewing all glucose and insulin data as well as relevant laboratory results with the patient, and coordination of care on the inpatient unit including nursing and primary team. Zulma Andres, RN - 07/14/2017 10:30 AM EST The patient/artists' booking representative has been provided a list of Home Health Agencies/DME vendors which serve their preferred geographic area. A letter describing our affiliations was reviewed with them and theywere educated about their right to choose where referrals are placed. Patient requests referral to : [facility] ([facility] [place] [facility]-is in [place] PHONE: [phone] FAX: [phone]. Expected date of discharge: 07/14/17 Referral routed to the Table Maker for [...] #6 s/p CABG X3. FSBG 80 at [place], reports no symptoms but did drink some [...] continue to follow Katerin Azul APRN [facility] Endocrinology Diabetes Management Pager [phone] minutes of this 25 minute visit [...] of infiltration/extravasation Discussed plan of care with AUTOMATED MANUFACTURING INSTRUCTOR and RN. Elevate exrtemity and apply intermittent Warm compresses. Name of MD contacted Dr. Shaw Brown 07/13/2017 @ 0682 Name of RN contacted Ale Rangel RN Name of Pharmacist if consulted NA Name of Plastics MD ( if consulted) NA (Mandatory photo for infiltrations/ extravasations scoring a stage 2 or greater, but recommended forstage 1)( include measuring tape and identifier in the photo) SHAREPOINT TRAINER CARING FOR THIS PATIENT WILL CONTINUE TO [...] measuring tape and identifier in the photo) SHAREPOINT TRAINER CARING FOR THIS PATIENT WILL CONTINUE TO [...] regard to both infiltrates addressed by this securities underwriter.All of Mr. Hoang's responses were entirely appropriate. Images of infiltrates attached here. Martha Sharp APRN - 07/13/2017 8:01 AM EST Cardiac Surgery Progress Note: ID: [id number] 72 year old male POD#6 s/p CABGx3 [...] discharge. ?? I have met with the patient/artists' booking representative to discuss discharge planning needs. I have provided the [facility], Office of Care Management letter from the Substation Inspector pertaining to rehab referrals. I have also provided a letter describing our affiliations within the [facility] and educated them about their right to choose where referrals are placed. ?? I reviewed the different levels of rehab including SNF, swing, acute and LTAC with the patient/artists' booking representative. ?? The patient/artists' booking representative has been provided a list of facilities within their preferred geographic area. ?? I have requested that the patient/artists' booking representative provide at least three choices for referral. ?? The patient/artists' booking representative have requested referrals to: ?? 1. . ?? 2. [facility] ?? 3. More to be entered ?? Expected date of discharge: 07/14 Note routed to Table Maker who will communicate referrals to facilities and [...] hours. If BG remains greater than 240, tpzfil35 units (no more than three times) & [...] hours. If BG remains greater than 240, zbjorw55 units (no more than three times) & call for new basal insulin orders. ??If less than 240 after two hours, give no insulin and resume prior schedule. Will continue to follow Katerin Patel. STACIE Azul [facility] Endocrinology Diabetes Management Pager [phone] 20 minutes of this 35 minute visit was spent with the patient in counseling on diabetes and treatment plan, reviewing all glucose and insulin data as well as relevant laboratory results with the patient, and coordination of care on the inpatient unit including nursing and primary team. Makayla Stevenson APRN - 07/12/2017 9:52 AM EST Cardiac Surgery Progress Note: ID: [id number] 72 year old male POD#5 s/p CABGx3 [...] hours. If BG remains greater than 240, tzefvv54 units (no more than three times) & [...] AM EST Cardiac Surgery Progress Note: ID: [id number] 72 year old male POD#4 s/p CABGx3 [...] hours. If BG remains greater than 240, umfwod47 units (no more than three times) & [...] AM EST Cardiac Surgery Progress Note: ID: [id number] 72 year old male POD#3 s/p CABGx3 [...] Gas) No results found for: PHART, PO2ART, ANK3ONA Assessment/Plan: 72 year old male POD#3 s/p [...] Encounter Note Patient Name: Gregory Hoang : [id number] MR#: [id number] Admit Date: 07/05/2017 4:20 PM Hospital Day 4 days Narrative: Patient was sitting in chair, hugging heart pillow, opened his eyes, nodding to come into room Assessment: Patient was sleepy. Intervention and Outcome: Introduced substation inspector services and patient reached his hand out in appreciation. Follow-up: Barrel Endshake Adjuster remains available for support. Time in Direct Care: 5 min. Mami Thao 07/09/2017 Philipp, Nick Patel MD - 07/09/2017 1:35 PM EST STAFF PROGRESS NOTE Critical Care Medicine Author: NICK SEGAL MD Patient seen and examined on critical care rounds. Gregory Hoagn is a 72 y.o. male with the [...] AM EST Cardiac Surgery Progress Note: ID: [id number] 72 year old male POD#2 s/p CABGx3 [...] Attending Surgeon on rounds. Signed: STEPHANIE Iqbal [facility] Section of Cardiac Surgery Date: 07/09/2017 [...] when IABP d/c'ed. Gretchen Carolina, PT Pager [phone] Maddison Cee PA - 07/08/2017 11:27 AM EST Cardiac Surgery Progress Note: ID: [id number] 72 year old male POD#1 s/p CABGx3 [...] Attending Surgeon on rounds. Signed: STEPHANIE Iqbal [facility] Section of Cardiac Surgery Date: 07/08/2017 [...] in place in R femoral. No hematoma. SALES REPRESENTATIVE UNIFORMS- Intact Psych- Anxious Skin- Dry, no peripheral [...] intact. IABP in place in R femoral. SALES REPRESENTATIVE UNIFORMS- Intact Psych- Anxious Skin- Dry, no peripheral [...] note for details. DAPHNE SHAHID MD Pager [phone] Jet Mckenna MD - 07/05/2017 6:48 PM EST Preliminary Cardiac Catheterization Procedure Note: Procedure(s) performed: Left heart cath, IABP insertion Access: Right PCA ASSISTED LIVING-->8fr IABP A time-out was conducted prior to [...] Heparin gtt maintained. Pt transferred to laboratory phlebotomist. documented in this encounter H&P Notes Daphne Shahid MD - 07/05/2017 6:08 PM EST CARDIOLOGY HISTORY & PHYSICAL EXAM Date of Admission: 07/05/2017 ( Hospital Day 0 days ) Responsible Attending: Daphne Shahid MD PCP: Lovely Vicente MD PCP#: [phone] Patient Active Problem List Diagnosis Code ??? [...] significant valvular disease. Taken to the laboratory phlebotomist urgently for ongoing STEMI. [facility] Labs: INR 1.0 WBC 5.88 [...] I/O - s/p lasix in the laboratory phlebotomist, redose to aim net neg 1L by [...] - ISS - hold metformin - f/u [facility] #Home Meds - continue levothyroxine 175mcg - CPAP at night # Routine - DVT PPx: heparin drip - Diet: NPO - Code Status: FULL - Dispo: [facility] Cedric Bey MD Internal Medicine, PGY-2 Cardiology S1, Team Pager # [phone] CARDIOLOGY ATTENDING NOTE Patient: Gregory Hoang Date [...] amenable for PCI. DAPHNE SHAHID MD Pager [phone] documented in this encounter Miscellaneous Notes Consult Note - Daphne Shahid MD - 07/14/2017 11:46 AM EST Heart Failure Service Inpatient Consult Note Gregory Hoang Date of : 1945 Age: 72 y.o. Today's date: 07/14/17 PCP: Lovely Vicente MD SIZE CUTTER: None [facility] [...] [facility] MAIN OR ??? PRO CABG, ARTERIAL, SINGLE N/A 07/07/2017 @CABG, USING ARTERIAL GRAFT;SINGLE ARTERIAL GRAFT (WRVU 33.75) performed by Yuan Webber MD at [facility] MAIN OR ??? PRO CABG, ARTERY-VEIN, TWO N/A 07/07/2017 @CABG, TWO VENOUS GRAFTS & ARTERIAL GRAFT (WRVU 7.93) performed by Yuan Webber MD at [facility] MAIN OR ??? PRO COLONOSCOPY, REMV LESN, SNARE 01/16/2014 COLONOSCOPY, POLYPECTOMY, REMOVAL LESION BY SNARE performed by Nohemi Jaimes MD at [facility] ENDOSCOPY ??? PRO ENDOSCOPY W/VIDEO-ASST VEIN HARVEST, CABG Right 07/07/2017 ENDOSCOPIC HARVEST VEIN(S) FOR CABG (WRVU 0.31) performed by Yuan Webber MD at [facility] MAIN OR ??? PRO THYROIDECTOMY 03/28/2013 THYROIDECTOMY, TOTAL OR COMPLETE performed by Manny Mcknight MD at [facility] MAIN OR Outpt Meds: Current [...] following studies: EKG 07/14/17: NSR 75 bpm, ENVIRONMENTAL COMPLIANCE INSPECTOR anterior infarct, LAD CXR 07/11/17: FINDINGS: Sternotomy wires. The patient has been extubated, left chest tube removed, and [place] catheter removed since the 07/07/2017 study. Atelectasis [...] was discussed with Zehra. Jaden Kelley MD Electric Pile Driver Operator Pager [phone] CARDIOLOGY ATTENDING NOTE Patient: Gregory Hoang Date [...] heart failure clinic. DAPHNE SHAHID MD Pager [phone] Plan of Care - Alden Chavarria, DIESEL POWER MECHANIC - 07/14/2017 11:35 AM EST Problem: [...] Discharge Disposition: home with assist Alden Chavarria, DIESEL POWER MECHANIC Pager: [phone] Inpatient Physical Therapy Problem: Acute Rehab Services [...] sit/sit to supine -- Bed Mobility Goal, [place] Level supervision required -- Bed Mobility Goal, [...] - 3 days -- Gait Training Goal, [place] Level supervision required -- Gait Training Goal, [...] days -- Transfer Training Goal, Activity Type dun-qp-cllzg/ddrqk-ln-gzy;jhj-aw-mlurx/lunky-nd-ngl;toilet -- Transfer Train Goal, [place] Level supervision required -- Transfer Training Goal, [...] keeping present for 2 days per family. Cop Winder noted of frustrations, house keeping sent to room. Patient offered showered twice, refused. at bedside, frustrated that shower not complete, informed that patient had refused several times. requesting to see FOOD AND BEVERAGE ASSISTANT MANAGER, paged sent to Martha, will come to bedside (middle of consult). not willing to wait, Martha notified that family had gone home. Encouraged to come for morning rounds a t 8am. Diabetes team at bedside - insulin adjustments made. Call cabello in reach. Continue to monitor. PLAN MOVING FORWARD: Ambulate, dressing changes BID, Please change drsg at 4am per Martha FOOD AND BEVERAGE ASSISTANT MANAGER request. INDIVIDUALIZED FALL PREVENTION INTERVENTIONS: Patient-specific [...] levels on the lower side, 60ml of [place] juice given after a FS of 80. [...] Anticipated Discharge Disposition: home with assist Pager: [phone] CLARISSA SEGAL, PT 07/12/2017 Physical Therapy Rehabilitation [...] to sit/sit to supine Bed Mobility Goal, [place] Level supervision required Bed Mobility Goal, Additional Goal adheres to psternal precautions for transfer Goal: Gait Training Goal Stand Alone Therapy Goal Outcome: Ongoing (Interventions Implemented as Appropriate) 07/12/17 1225 Gait Training Goal Gait Training Goal, Date Established 07/12/17 Gait Training Goal, Time to Achieve 2 - 3 days Gait Training Goal, [place] Level supervision required Gait Training Goal, Assist [...] 3 days Transfer Training Goal, Activity Type hit-gi-ojfbs/tkmcv-is-omc;hyn-cp-wrzid/zpned-wv-xxx;toilet Transfer Train Goal, [place] Level supervision required Transfer Training Goal, Additional Goal adheres to sternal precautions during transfer Consult Note - Octavia Vaughn RN - 07/12/2017 10:50 AM EST [facility] CARDIAC REHABILITATION Gregory Hoang was seen today regarding participation in the outpatient Phase 2 Cardiac Rehabilitation at [facility]. The patient agrees to a [...] IV site, amio to other piv and UNIT LEADER at bedside to help assess, IV removed. [...] staff, he stood and marched in place. [place] weak, wanting to sit back down. Remained [...] Outcome: Ongoing (Interventions Implemented as Appropriate) 07/05/17 9669 Mutuality/Individual Preferences What Anxieties, Fears or Concerns [...] Coverage: Primary Insurance: MEDICARE Secondary Insurance: [employer] [place] Prescription Coverage: yes Preferred Pharmacy: [facility] [place] Other: none Primary Care Provider: Lovely Vicente MD [phone] Patient/Caregiver Goals of Treatment:live and get my breath back Potential Needs for Transition of Care: Rehab[facility]SNF: [facility]; [facility] Home Health: NA DME: TBD Dialysis: na Community Resources: available Transportation: yes Other: none Anticipated Barriers to Discharge/Special Considerations: none Plan: Likely SNF Rehab before home A member of the Care Management team will continue to monitor progress, follow for continuity of care and assist with transition of care planning. ERLIN Weiss Pager: [phone] Consult Note - Katerin Azul RN - [...] potential to d/c gtt and start CF. retirement diabetes care: Medications - Outpatient treatment regimen recommendations pending based on the hospital course. Monitoring - continue BG tid ac & hs Diet - low fat/low carb diet Exercise - weight-bearing exercise 30 min/day, as tolerated Thank you for allowing us to provide care for your patient W/E coverage, Dr. Jeane Tatum, pager [phone] Katerin Patel. STACIE [facility] Diabetes Management Pager [phone] Plan of Care - Stephanie Godoy RN [...] MD - 07/07/2017 6:27 PM EST [facility] [facility] Operative Note Patient Name: Gregory Hoang : [id number] MR#: [id number] Case Date: 07/07/2017 Surgeon: Surgeon(s) and Role: * Yuan Webber MD - Primary * Michael Drake PA - Physician Clothes Designer * Linda Flores PA - Physician Clothes Designer Preoperative diagnosis: 3VD Postoperative diagnosis: CAD, [...] Operative Note Patient Name: Gregory Hoang : [id number] MR#: [id number] Case Date: 07/07/2017 Surgeon: Surgeon(s) and Role: * Yuan Webber MD - Primary * Michael Drake PA - Physician Clothes Designer * Linda Flores PA - Physician Clothes Designer Preoperative diagnosis: 3VD Postoperative diagnosis: CAD, [...] major CV events such as , stroke, LA, repeat revascularization compared to PCI). In this [...] code status: Full Code Katty Jovani, MS3 [facility] [employer] [facility] Cardiology S1 (Pager [phone]) Plan of Care - Emelia Ibarra RN [...] hospital and ruled infor non-ST segment elevation LA. This almost certainly represents the residual of [...] at [facility] MA[facility] OR Social History: Social [...] with other involved physicians Yuan Webber MD [phone] Med Student Progress Note - Jovani Katty [...] major CV events such as , stroke, [place], repeat revascularization compared to PCI). In this [...] BiPAP - s/p lasix in the laboratory phlebotomist, was net -1.5L - s/p plavix load, [...] Dispo: CVCC Katty Hahn, M3 [facility] Cardiology S1 (Pager [phone]) Plan of Care - Stephanie Godoy RN [...] urinal without difficulty. Lasix given in laboratory phlebotomist, 1.4 L out at this time. Pt [...] MD [facility] [address] [place], [place] [address] (Wo lissa) 05/28/2022 Laboratory Appointment Lab 05/28/2022 Office Visit Cardiology Zulma Dolan MD [facility] [place] [address] Liz Poole PA [facility] [place] [address] 06/10/2022 Office Visit Dermatology Laura Scherer MD [facility] [address] [place], [place] [address] (Wo rk) Scheduled Orders Name [...] procedure are i n the results section. 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 12:00 Res ults for [...] 07/08/2017 4:00 Results f or this ([facility]/[facility]) AM EST procedure are i n the [...] TYPE AND SCREEN Routine 07/06/2017 12:00 ([facility] [place]/CGP/SHANDA) PM EST APTT STAT [...] 07/06/2017 8:10 Results f or this ([facility]/[facility]P) AM EST procedure are [...] 07/05/2017 8:20 Results f or this ([facility] [facility]P) PM EST procedure are [...] 07/05/2017 4:55 Results f or this ([facility]/[facility]P) PM EST procedure are [...] 2017 EXAMINATION: XR CHEST PA AND LATERAL ([employer]) CLINICAL HISTORY: CABG x 3 TECHNIQUE: PA [...] Teague APRN IMG DX ORDERABLES SCAN DOC: LUMBER SALES SUPERVISOR (07/15/2017 12:00 AM EST) Narrative 07/15/2017 [...] POC Glucose 186 65 - [address] [facility] Comment: Supplemental [...] [facility]/ZIP Code Phon e [place] [address] POCT Glucose (07/14/2017 7:52 AM EST) athologist Signature POC Glucose 126 65 - [address] [facility]dL [facility] Comment: Supplemental [...] [place] [address] (ABNORMAL) Prothrombin Time (07/14/2017 4:46 AM EST) athologist Signature PT 26.4 (H) 11.8 - 14.0 [facility] LABORATORY INR 2.4 (H) 0.9 [...] [facility]/ZIP Code Phon e [place] [address] Potassium (07/14/2017 4:46 AM EST) athologist Signature Potassium 4.3 3.5 - 5.0 [facility] mmol/L [facility] Comment: Please [...] [facility]/ZIP Code Phon e [place] [address] POCT Glucose (07/14/2017 4:34 AM EST) athologist Signature POC Glucose 115 65 - 199 [facility] mg/dL [facility] Comment: Supplemental [...] Address City/State/ZIP Code Phon e Number [address] POCT Glucose (07/13/2017 11:33 PM EST) athologist Signature POC Glucose 132 65 - 199 [facility] mg/dL [facility] Comment: Supplemental ranges: <140 mg/dL before meals <180 mg/dL all other times of the day Specimen Anatomical Collection Method Collection Time Receive d Time (Source) Location / / Volume Laterality Blood specimen 07/13/2017 11:33 7 (specimen) PM EST 11:33 PM EST Yuan Webber MD POINT OF CARE TEST ORDERABLE S Performing Organization Address City/State/ZIP Code Phon e Number [address] POCT Glucose (07/13/2017 9:25 PM EST) athologist Signature POC Glucose 121 65 - 199 [facility] mg/dL [facility] Comment: Supplemental ranges: <140 mg/dL before meals <180 mg/dL all other times of the day Specimen Anatomical Collection Method Collection Time Receive d Time (Source) Location / / Volume Laterality Blood specimen 07/13/2017 9:25 PM 017 9:25 (specimen) EST PM EST Yuan Webber MD POINT OF CARE TEST ORDERABLE S Performing Organization Address City/State/ZIP Code Phon e Number [address] POCT Glucose (07/13/2017 4:55 PM EST) athologist Signature POC Glucose 79 65 - 199 [facility] mg/dL [facility] Comment: Supplemental ranges: <140 mg/dL before meals <180 mg/dL all other times of the day Specimen Anatomical Collection Method Collection Time Receive d Time (Source) Location / / Volume Laterality Blood specimen 07/13/2017 4:55 PM 017 4:55 (specimen) EST PM EST Yuan Webber MD POINT OF CARE TEST ORDERABLE S Performing Organization Address City/State/ZIP Code Phon e Number [address] POCT Glucose (07/13/2017 11:16 AM EST) athologist Signature POC Glucose 163 65 - [address] [facility]dL [facility] Comment: Supplemental [...] Address City/State/ZIP Code Phon e Number [address] POCT Glucose (07/13/2017 8:07 AM EST) athologist Signature POC Glucose 96 65 - [address] [facility]dL [facility] Comment: Supplemental [...] Address City/State/ZIP Code Phon e Number [address] (ABNORMAL) Prothrombin Time (07/13/2017 4:26 AM EST) athologist Signature PT 20.8 (H) 11.8 - 14.0 [facility] LABORATORY INR 1.8 (H) 0.9 [...] Organization Address City/State/[place] [address] (ABNORMAL) Basic Metabolic Panel (non-fasting) (07/13/2017 4:26 AM EST) athologist Signature Glucose Lvl 95 65 - 199 [facility] mg/dL [facility] Comment: Diabetes: [...] [facility] Estimated GFR 60 >=60 [facility] Comment: The reported eGFR should be multiplied b y 1.2 for patients. The MDRD is not an appropriate measure o f renal function for patients with body mass extremes or in patients with acute kidney failure. http://Canines/DHnkdep http://Canines/DHMCnkf Specimen Anatomical Collection Method Collection Time Receive d Time (Source) Location / / Volume Laterality Blood specimen 07/13/2017 4:26 AM 017 4:46 (specimen) EST AM EST Resulting Agency Comment Spec In Lab Makayla Wilson APRN CHEMISTRY ORDERABLES Performing Organization Address City/[facility]/ZIP Code Phon e Number [address] POCT Glucose (07/13/2017 3:52 AM EST) athologist Signature POC Glucose 93 65 - 199 [facility] mg/dL [facility] Comment: Supplemental ranges: [...] [facility]/ZIP Code Phon e Number [address] POCT Glucose (07/13/2017 12:21 AM EST) athologist Signature POC Glucose 80 65 - 199 [place] [facility] mg/dL [facility] Comment: Supplemental ranges: [...] [facility]/ZIP Code Phon e Number [address] POCT Glucose (07/12/2017 8:22 PM EST) athologist Signature POC Glucose 119 65 - 199 [place] mg/dL [facility] Comment: Supplemental ranges: <140 mg/dL before meals <180 mg/dL all other times of the day Specimen Anatomical Collection Method Collection Time Receive d Time (Source) Location / / Volume Laterality Blood specimen 07/12/2017 8:22 PM 017 8:22 (specimen) EST PM EST Yuan Webber MD POINT OF CARE TEST ORDERABLE S Performing Organization Address City/State/ZIP Code Phon e Number [address] POCT Glucose (07/12/2017 4:02 PM EST) athologist Signature POC Glucose 114 65 - 199 [place] mg/dL [facility] Comment: Supplemental ranges: <140 mg/dL before meals <180 mg/dL all other times of the day Specimen Anatomical Collection Method Collection Time Receive d Time (Source) Location / / Volume Laterality Blood specimen 07/12/2017 4:02 PM 017 4:02 (specimen) EST PM EST Yuan Webber MD POINT OF CARE TEST ORDERABLE S Performing Organization Address City/State/ZIP Code Phon e Number [address] POCT Glucose (07/12/2017 11:28 AM EST) athologist Signature POC Glucose 164 65 - 199 [place] mg/dL [facility] Comment: Supplemental ranges: <140 mg/dL before meals <180 mg/dL all other times of the day Specimen Anatomical Collection Method Collection Time Receive d Time (Source) Location / / Volume Laterality Blood specimen 07/12/2017 11:28 7 (specimen) AM EST 11:28 AM EST Yuan Webber MD POINT OF CARE TEST ORDERABLE S Performing Organization Address City/State/ZIP Code Phon e Number [address] POCT Glucose (07/12/2017 7:34 AM EST) athologist Signature POC Glucose 109 65 - 199 [facility] mg/dL [facility] Comment: Supplemental ranges: <140 mg/dL before meals <180 mg/dL all other times of the day Specimen Anatomical Collection Method Collection Time Receive d Time (Source) Location / / Volume Laterality Blood specimen 07/12/2017 7:34 AM 017 7:34 (specimen) EST AM EST Yuan Webber MD POINT OF CARE TEST ORDERABLE S Performing Organization Address City/State/[place] [address] (ABNORMAL) Basic Metabolic Panel (non-fasting) (07/12/2017 4:11 AM EST) P athologist Signature Glucose Lvl 92 65 - 199 [facility] mg/dL [facility] Comment: Diabetes: [...] or in patients with acute kidney failure. http://MEDOVENT.Damballa/DHnkdep http://MEDOVENT.Damballa/DHnkf Specimen Anatomical Collection Method Collection Time Receive d Time (Source) Location / / Volume Laterality Blood specimen 07/12/2017 4:11 AM 017 8:57 (specimen) EST AM EST Resulting Agency Comment Spec In Lab Makayla Wilson APRN CHEMISTRY ORDERABLES Performing Organization Address City/State/ZIP Code Phon [place] [address] (ABNORMAL) Prothrombin Time (07/12/2017 4:11 AM EST) athologist Signature PT 15.4 (H) 11.8 - 14.0 [facility] LABORATORY INR 1.2 (H) 0.9 [...] [place] STACIE HEMATOLOGY ORDERABLES Performing Organization Address City/[facility]/ZIP Code Phon [place] [address] Potassium (07/12/2017 4:11 AM EST) athologist Signature Potassium 3.8 3.5 - 5.0 [facility] mmol/L [facility] Comment: Please [...] Agency Comment Spec In Lab Makayla Katie MANAGER CARDIAC CHEMISTRY ORDERABLES Performing Organization Address City/[facility]/ZIP Code Phon [place] [address] POCT Glucose (07/12/2017 4:10 AM EST) athologist Signature POC Glucose 90 65 - 199 [facility] mg/dL [facility] Comment: Supplemental ranges: <140 mg/dL before meals <180 mg/dL all other times of the day Specimen Anatomical Collection Method Collection Time Receive d Time (Source) Location / / Volume Laterality Blood specimen 07/12/2017 4:10 AM 017 4:10 (specimen) EST AM EST Yuan Webber MD POINT OF CARE TEST ORDERABLE S Performing Organization Address City/State/ZIP Code Phon e Number [address] POCT Glucose (07/11/2017 11:57 PM EST) athologist Signature POC Glucose 98 65 - 199 [facility] Comment: Supplemental ranges: [...] [place] [address] POCT Glucose (07/11/2017 8:32 PM EST) athologist Signature POC Glucose 146 65 - 199 [facility] Comment: Supplemental ranges: [...] [place] [address] XR Chest PA & [...] e xtubated, left chest tube removed, and [place] catheter removed since the study. Atelectasis at [...] e xtubated, left chest tube removed, and [place] catheter removed since the study. Atelectasis at [...] POC Glucose 223 (H) 65 - 199 [facility] mg/dL [facility] Comment: Supplemental [...] Address City/State/ZIP Code Phon e Number [address] POCT Glucose (07/11/2017 11:55 AM EST) P athologist Signature POC Glucose 176 65 - 199 [place] mg/dL [facility] Comment: Supplemental ranges: [...] [facility]/ZIP Code Phon [place] [address] POCT Glucose (07/11/2017 7:53 AM EST) athologist Signature POC Glucose 189 65 - 199 [place] mg/dL [facility] Comment: Supplemental ranges: [...] [facility]/ZIP Code Phon [place] [address] POCT Glucose (07/11/2017 4:22 AM EST) P athologist Signature POC Glucose 151 65 - 199 [place] mg/dL [facility] Comment: Supplemental ranges: [...] [facility]/ZIP Code Phon [place] [address] Potassium (07/11/2017 2:20 AM EST) athologist Signature Potassium 4.5 3.5 - 5.0 [facility] mmol/L [facility] Comment: Please [...] eWbber MD CHEMISTRY ORDERABLES Performing Organization Address City/[facility]/ZIP Code Phon [place] [address] POCT Glucose (07/11/2017 12:17 AM EST) athologist Signature POC Glucose 162 65 - 199 [facility] Comment: Supplemental ranges: [...] [facility]/ZIP Code Phon e Number [address] POCT Glucose (07/10/2017 8:47 PM EST) athologist Signature POC Glucose 191 65 - 199 [facility] Comment: Supplemental ranges: <140 mg/dL before meals <180 mg/dL all other times of the day Specimen Anatomical Collection Method Collection Time Receive d Time (Source) Location / / Volume Laterality Blood specimen 07/10/2017 8:47 PM 017 8:47 (specimen) EST PM EST Yuan Webber MD POINT OF CARE TEST ORDERABLE S Performing Organization Address City/State/ZIP Code Phon e Number [address] POCT Glucose (07/10/2017 4:06 PM EST) athologist Signature POC Glucose 131 65 - 199 [place] mg/dL [facility] Comment: Supplemental ranges: [...] [place] [address] POCT Glucose (07/10/2017 3:08 PM EST) athologist Signature POC Glucose 151 65 - 199 [place] mg/dL [facility] Comment: Supplemental ranges: [...] [place] [address] POCT Glucose (07/10/2017 2:25 PM EST) athologist Signature POC Glucose 146 65 - 199 [facility]dL [facility] Comment: Supplemental ranges: <140 mg/dL before meals <180 mg/dL all other times of the day Specimen Anatomical Collection Method Collection Time Receive d Time (Source) Location / / Volume Laterality Blood specimen 07/10/2017 2:25 PM 017 2:25 (specimen) EST PM EST Yuan Webber MD POINT OF CARE TEST ORDERABLE S Performing Organization Address City/State/ZIP Code Phon e Number [address] POCT Glucose (07/10/2017 1:23 PM EST) P athologist Signature POC Glucose 166 65 - 199 [place] mg/dL [facility] Comment: Supplemental ranges: [...] [facility]/ZIP Code Phon e Number [address] POCT Glucose (07/10/2017 11:52 AM EST) P athologist Signature POC Glucose 157 65 - 199 [place] mg/dL [facility] Comment: Supplemental ranges: <140 mg/dL before meals <180 mg/dL all other times of the day Specimen Anatomical Collection Method Collection Time Receive d Time (Source) Location / / Volume Laterality Blood specimen 07/10/2017 11:52 7 (specimen) AM EST 11:52 AM EST Yuan Webber MD POINT OF CARE TEST ORDERABLE S Performing Organization Address City/State/ZIP Code Phon e Number [address] POCT Glucose (07/10/2017 11:01 AM EST) P athologist Signature POC Glucose 158 65 - 199 [place] mg/dL [facility] Comment: Supplemental ranges: <140 mg/dL before meals <180 mg/dL all other times of the day Specimen Anatomical Collection Method Collection Time Receive d Time (Source) Location / / Volume Laterality Blood specimen 07/10/2017 11:01 7 (specimen) AM EST 11:01 AM EST Yuan Webber MD POINT OF CARE TEST ORDERABLE S Performing Organization Address City/State/ZIP Code Phon e Number [address] POCT Glucose (07/10/2017 9:54 AM EST) P athologist Signature POC Glucose 160 65 - 199 [place] mg/dL [facility] Comment: Supplemental ranges: <140 mg/dL before meals <180 mg/dL all other times of the day Specimen Anatomical Collection Method Collection Time Receive d Time (Source) Location / / Volume Laterality Blood specimen 07/10/2017 9:54 AM 017 9:54 (specimen) EST AM EST Yuan Webber MD POINT OF CARE TEST ORDERABLE S Performing Organization Address City/State/ZIP Code Phon e Number [address] POCT Glucose (07/10/2017 8:58 AM EST) athologist Signature POC Glucose 183 65 - 199 [place] mg/dL [facility] Comment: Supplemental ranges: [...] [place] [address] POCT Glucose (07/10/2017 8:01 AM EST) P athologist Signature POC Glucose 173 65 - 199 [facility] mg/dL [facility] Comment: Supplemental ranges: <140 mg/dL before meals <180 mg/dL all other times of the day Specimen Anatomical Collection Method Collection Time Receive d Time (Source) Location / / Volume Laterality Blood specimen 07/10/2017 8:01 AM 017 8:01 (specimen) EST AM EST Yuan Webber MD POINT OF CARE TEST ORDERABLE S Performing Organization Address City/State/ZIP Code Phon e Number [address] POCT Glucose (07/10/2017 7:05 AM EST) athologist Signature POC Glucose 166 65 - 199 [place] mg/dL [facility] Comment: Supplemental ranges: <140 mg/dL before meals <180 mg/dL all other times of the day Specimen Anatomical Collection Method Collection Time Receive d Time (Source) Location / / Volume Laterality Blood specimen 07/10/2017 7:05 AM 017 7:05 (specimen) EST AM EST Yuan Webber MD POINT OF CARE TEST ORDERABLE S Performing Organization Address City/State/ZIP Code Phon e Number [address] POCT Glucose (07/10/2017 6:00 AM EST) athologist Signature POC Glucose 162 65 - 199 [facility]dL [facility] Comment: Supplemental ranges: <140 mg/dL before meals <180 mg/dL all other times of the day Specimen Anatomical Collection Method Collection Time Receive d Time (Source) Location / / Volume Laterality Blood specimen 07/10/2017 6:00 AM 017 6:00 (specimen) EST AM EST Yuan Webber MD POINT OF CARE TEST ORDERABLE S Performing Organization Address City/State/ZIP Code Phon e Number [address] (ABNORMAL) Differential, Automated (07/10/2017 4:28 AM EST) [facility] gist Method Time Signature Neutrophils % 87.9 % [facility] Neutr Abs (ANC) 10.70 (H) 1.70 - [facility] 6.10 [facility] x10(3)/[facility] L LABORATORY Lymphocytes % 3.9 % [facility] Lymphocytes Abs 0.5 (L) 0.9 - 3.2 [facility] x10(3)/[facility] LABORATORY Monocytes % 7.0 % [facility] Monocyte Abs 0.8 0.3 - 0.9 [facility] x10(3)/[facility] LABORATORY Eosinophils % 0.3 % [facility] Eosinophils Abs 0.0 0.0 - 0.4 [facility] x10(3)/[facility] LABORATORY Basophils % 0.2 % [facility] Basophils Abs 0.0 0.0 - 0.1 [facility] x10(3)/[facility] LABORATORY Immature Gran % 0.70 % [facility] [...] 0.08 (H) 0.00 - 0.04 x10(3)/[facility] LABORATORY Specimen Anatomical Collection Method Collection Time Receive d Time (Source) Location / / Volume Laterality Blood specimen 07/10/2017 4:28 AM 017 4:36 (specimen) EST AM EST Resulting Agency Comment Spec In Lab Yuan Webber MD HEMATOLOGY ORDERABLES Performing Organization Address City/State/[place] [address] (ABNORMAL) Hemogram (07/10/2017 4:28 AM EST) Analysis Performed At Patho logist Time Signature WBC 12.2 (H) 4.0 - 9.5 [facility] x10(3)/[facility] LABORATORY RBC 3.31 (L) 4.58 - [facility] 5.54 [facility] x10(6)/[facility] LABORATORY Hemoglobin 9.8 (L) 13.7 - [facility] 16.5 gm/dL [facility] Hematocrit 30.0 (L) 40.5 - [facility] 48.5 % [facility] MCV 90.6 82.9 - [facility] 93.1 fL [facility] MCH 29.6 27.5 - [facility] 32.1 pg [facility] MCHC 32.7 32.[address] - [facility] 35.7 gm/dL [facility] Platelets 135 (L) 145 - 357 [facility] x10(3)/[facility] LABORATORY RDWSD 50.8 (H) 36.0 - [facility] 45.0 [facility] LABORATORY RDWCV 15.4 (H) 11.4 - [facility] 13.8 % [facility] MPV 10.0 7.6 - 12.9 [facility] LABORATORY nRBC % Auto 0.0 % [facility] nRBC Abs Auto 0.000 0.000 - [facility] 0.000 [facility] x10(3)/[facility] LABORATORY Specimen Anatomical Collection Method Collection Time Receive d Time (Source) Location / / Volume Laterality Blood specimen 07/10/2017 4:28 AM 017 4:36 (specimen) EST AM EST Resulting Agency Comment Spec In Lab Yuan Webber MD HEMATOLOGY ORDERABLES Performing Organization Address City/State/[place] [address] (ABNORMAL) Basic Metabolic Panel (non-fasting) (07/10/2017 4:28 AM EST) athologist Signature Glucose Lvl 178 65 - 199 [facility] mg/dL [facility] Comment: Diabetes: [...] [facility] Estimated GFR 60 >=60 [facility] Comment: The reported eGFR should be multiplied b y 1.2 for patients. The MDRD is not an appropriate measure o f renal function for patients with body mass extremes or in patients with acute kidney failure. http://Canines/DHnkdep http://Canines/DHMCnkf Specimen Anatomical Collection Method Collection Time Receive d Time (Source) Location / / Volume Laterality Blood specimen 07/10/2017 4:28 AM 017 4:36 (specimen) EST AM EST Resulting Agency Comment Spec In Lab Yuan Webber MD CHEMISTRY ORDERABLES Performing Organization Address City/[facility]/ZIP Code Phon e Number [address] POCT Glucose (07/10/2017 4:26 AM EST) P athologist Signature POC Glucose 176 65 - [address] [facility] Comment: Supplemental [...] [place] [address] (ABNORMAL) POCT Glucose (07/10/2017 3:06 AM EST) P athologist Signature POC Glucose 204 (H) 65 - 199 [facility] Comment: Supplemental ranges: [...] [facility]/ZIP Code Phon e Number [address] (ABNORMAL) POCT Glucose (07/10/2017 2:10 AM EST) P athologist Signature POC Glucose 203 (H) 65 - 199 [place] mg/dL [facility] Comment: Supplemental ranges: [...] [facility]/ZIP Code Phon e [place] [address] POCT Glucose (07/10/2017 1:09 AM EST) P athologist Signature POC Glucose 196 65 - 199 [place] mg/dL [facility] Comment: Supplemental ranges: [...] e [place] [address] POCT Glucose (07/10/2017 12:10 AM EST) P athologist Signature POC Glucose 173 65 - 199 [place] mg/dL [facility] Comment: Supplemental ranges: <140 mg/dL before meals <180 mg/dL all other times of the day Specimen Anatomical Collection Method Collection Time Receive d Time (Source) Location / / Volume Laterality Blood specimen 07/10/2017 12:10 7 (specimen) AM EST 12:10 AM EST Yuan Webber MD POINT OF CARE TEST ORDERABLE S Performing Organization Address City/State/ZIP Code Phon e Number [address] POCT Glucose (07/09/2017 11:01 PM EST) P athologist Signature POC Glucose 140 65 - 199 [place] mg/dL [facility] Comment: Supplemental ranges: [...] [facility]/ZIP Code Phon e Number [address] POCT Glucose (07/09/2017 10:05 PM EST) athologist Signature POC Glucose 144 65 - 199 [place] mg/dL [facility] Comment: Supplemental ranges: <140 mg/dL before meals <180 mg/dL all other times of the day Specimen Anatomical Collection Method Collection Time Receive d Time (Source) Location / / Volume Laterality Blood specimen 07/09/2017 10:05 7 (specimen) PM EST 10:05 PM EST Yuan Webber MD POINT OF CARE TEST ORDERABLE S Performing Organization Address City/State/ZIP Code Phon e Number [address] POCT Glucose (07/09/2017 9:31 PM EST) P athologist Signature POC Glucose 121 65 - 199 [place] mg/dL [facility] Comment: Supplemental ranges: <140 mg/dL before meals <180 mg/dL all other times of the day Specimen Anatomical Collection Method Collection Time Receive d Time (Source) Location / / Volume Laterality Blood specimen 07/09/2017 9:31 PM 017 9:31 (specimen) EST PM EST Yuan Webber MD POINT OF CARE TEST ORDERABLE S Performing Organization Address City/State/ZIP Code Phon e Number [address] POCT Glucose (07/09/2017 9:03 PM EST) athologist Signature POC Glucose 98 65 - 199 [place] mg/dL [facility] Comment: Supplemental ranges: <140 mg/dL before meals <180 mg/dL all other times of the day Specimen Anatomical Collection Method Collection Time Receive d Time (Source) Location / / Volume Laterality Blood specimen 07/09/2017 9:03 PM 017 9:03 (specimen) EST PM EST Yuan Webber MD POINT OF CARE TEST ORDERABLE S Performing Organization Address City/State/ZIP Code Phon e Number [address] POCT Glucose (07/09/2017 8:09 PM EST) athologist Signature POC Glucose 117 65 - 199 [place] mg/dL [facility] Comment: Supplemental ranges: <140 mg/dL before meals <180 mg/dL all other times of the day Specimen Anatomical Collection Method Collection Time Receive d Time (Source) Location / / Volume Laterality Blood specimen 07/09/2017 8:09 PM 017 8:09 (specimen) EST PM EST Yuan Webber MD POINT OF CARE TEST ORDERABLE S Performing Organization Address City/State/ZIP Code Phon e Number [address] POCT Glucose (07/09/2017 5:40 PM EST) athologist Signature POC Glucose 155 65 - 199 [facility] mg/dL [facility] Comment: Supplemental ranges: [...] [facility]/ZIP Code Phon e Number [address] POCT Glucose (07/09/2017 4:24 PM EST) athologist Signature POC Glucose 164 65 - 199 [place] mg/dL [facility] Comment: Supplemental ranges: [...] [facility]/ZIP Code Phon e Number [address] POCT Glucose (07/09/2017 3:19 PM EST) athologist Signature POC Glucose 166 65 - 199 [place] mg/dL [facility] Comment: Supplemental ranges: [...] [facility]/ZIP Code Phon [place] [address] POCT Glucose (07/09/2017 2:26 PM EST) athologist Signature POC Glucose 179 65 - 199 [place] mg/dL [facility] Comment: Supplemental ranges: [...] e [place] [address] (ABNORMAL) POCT Glucose (07/09/2017 1:29 PM EST) P athologist Signature POC Glucose 210 (H) 65 - 199 [place] mg/dL [facility] Comment: Supplemental ranges: [...] e [place] [address] POCT Glucose (07/09/2017 12:20 PM EST) athologist Signature POC Glucose 172 65 - 199 [place] mg/dL [facility] Comment: Supplemental ranges: <140 mg/dL before meals <180 mg/dL all other times of the day Specimen Anatomical Collection Method Collection Time Receive d Time (Source) Location / / Volume Laterality Blood specimen 07/09/2017 12:20 7 (specimen) PM EST 12:20 PM EST Yuan Webber MD POINT OF CARE TEST ORDERABLE S Performing Organization Address City/State/[place] [address] POCT Glucose (07/09/2017 11:24 AM EST) athologist Signature POC Glucose 156 65 - 199 [place] mg/dL [facility] Comment: Supplemental ranges: [...] e [place] [address] POCT Glucose (07/09/2017 11:11 AM EST) athologist Signature POC Glucose 172 65 - 199 [place] mg/dL [facility] Comment: Supplemental ranges: <140 mg/dL before meals <180 mg/dL all other times of the day Specimen Anatomical Collection Method Collection Time Receive d Time (Source) Location / / Volume Laterality Blood specimen 07/09/2017 11:11 7 (specimen) AM EST 11:11 AM EST Yuan Webber MD POINT OF CARE TEST ORDERABLE S Performing Organization Address City/State/ZIP Code Phon e Number [address] POCT Glucose (07/09/2017 10:08 AM EST) athologist Signature POC Glucose 176 65 - 199 [facility] mg/dL [facility] Comment: Supplemental ranges: [...] e [place] [address] POCT Glucose (07/09/2017 8:02 AM EST) athologist Signature POC Glucose 178 65 - 199 [place] mg/dL [facility] Comment: Supplemental ranges: [...] [place] [address] (ABNORMAL) BLOOD GAS 2 ARTERIAL (07/09/2017 5:37 AM EST) Analysis Performed At Patho logist Time Signature pH Art 7.36 7.35 - [facility] 7.45 [facility] pCO2 Art 38 35 - 45 [facility] mmHg [facility] pO2 Art 79 (L) 85 - 104 [facility] LABORATORY HCO3 Art 20.9 20.0 - [facility] 26.0 [facility] mmol/L [facility] LABORATORY BE Art -4.6 (L) -3.0 - 3.0 [facility] mmol/L [facility] Hgb Blood Gas 10.5 (L) 13.7 - [facility] 16.5 gm/dL [facility] O2HB Art 93.8 (L) 94.0 - [facility] 97.0 % [facility] COHB Art 0.3 % [facility] PF Ratio Art 198 [facility] LABORATORY Specimen Anatomical Collection Method Collection Time Receive d Time (Source) Location / / Volume Laterality Blood specimen 07/09/2017 5:37 AM 017 5:37 (specimen) EST AM EST Yuan Webber MD CHEMISTRY ORDERABLES Performing Organization Address City/State/ZIP Code Phon [place] [address] POCT Glucose (07/09/2017 3:27 AM EST) athologist Signature POC Glucose 192 65 - [facility] Comment: Supplemental [...] [place] [address] (ABNORMAL) Basic Metabolic Panel (non-fasting) (07/09/2017 2:30 AM EST) athologist Signature Glucose Lvl 179 65 - [address] [facility] Comment: Diabetes: [...] or in patients with acute kidney failure. http://Canines/DHnkdep http://Canines/DHMCnkf Specimen Anatomical Collection Method Collection Time Receive d Time (Source) Location / / Volume Laterality Blood specimen Venous Draw / 07/09/2017 2:30 AM 2016 2:42 (specimen) Unknown EST AM EST Resulting Agency Comment Spec In Lab Yuan Webber MD CHEMISTRY ORDERABLES Performing Organization Address City/[facility] Code Phon [place] [address] (ABNORMAL) Potassium (07/09/2017 2:30 AM EST) P athologist Signature Potassium 5.1 (H) 3.5 - 5.0 [facility] mmol/L [facility] Comment: Please [...] City/[facility] Phon e [place] [address] (ABNORMAL) Hemogram (07/09/2017 2:30 AM EST) Analysis Performed At Patho logist Time Signature WBC 12.5 (H) 4.0 - 9.5 [place] x10(3)/[facility] LABORATORY RBC 3.38 (L) 4.58 - [place] 5.54 [facility] x10(6)/[facility] LABORATORY Hemoglobin 10.1 (L) 13.7 - [place] 16.5 gm/dL [facility] Hematocrit 30.3 (L) 40.5 - [place] [facility] 48.5 % [facility] MCV 89.6 82.9 [facility] 93.1 [facility] LABORATORY MCH 29.9 27.5 - [place] 32.1 pg [facility] MCHC 33.3 32.0 - [place] [facility] 35.7 gm/dL [facility] Platelets 127 (L) 145 - 357 [facility] x10(3)/[facility] LABORATORY RDWSD 49.3 (H) 36.0 [facility] 45.0 [facility] LABORATORY RDWCV 15.2 (H) 11.4 - [place] 13.8 % [facility] MPV 9.9 7.6 - 12.9 [place] [facility] LABORATORY nRBC % Auto 0.0 % [facility] LABORATORY nRBC Abs Auto 0.000 0.000 - [place] 0.000 [facility] x10(3)/[facility] LABORATORY Specimen Anatomical Collection Method Collection Time Receive d Time (Source) Location / / Volume Laterality Blood specimen 07/09/2017 2:30 AM 017 2:41 (specimen) EST AM EST Resulting Agency Comment Spec In Lab Yuan Webber MD HEMATOLOGY ORDERABLES Performing Organization Address City/State/[place] [address] POCT Glucose (07/09/2017 2:10 AM EST) P athologist Signature POC Glucose 169 65 - 199 [facility] mg/dL [facility] Comment: Supplemental [...] e [place] [address] POCT Glucose (07/09/2017 1:01 AM EST) P athologist Signature POC Glucose 173 65 - 199 [place] mg/dL [facility] Comment: Supplemental ranges: [...] [facility]/ZIP Code Phon e [place] [address] Blood culture (07/09/2017 12:40 AM EST) Patholo gist Method Time Signature Blood Culture No growth [place] DAVIS at 5 days. [facility] Specimen Anatomical Collection Method Collection Time Receive d Time (Source) Location / / Volume Laterality Blood specimen STRUCTURE OF RIGHT 07/09/2017 12:40 3:58 (specimen) UPPER LIMB / AM EST AM EST Unknown Resulting Agency Comment Spec In Lab Yuan Webber MD MICROBIOLOGY - BLOOD ORDERAB LES Performing Organization Address City/[facility]/ZIP Code Phon e [place] [address] Blood culture (07/09/2017 12:30 AM EST) Patholo gist Method Time Signature Blood Culture No growth [place] DAVIS at 5 days. [facility] Specimen Anatomical Collection Method Collection Time Receive d Time (Source) Location / / Volume Laterality Blood specimen STRUCTURE OF LEFT 07/09/2017 12:30 06/25 3:59 (specimen) UPPER LIMB / AM EST AM EST Unknown Resulting Agency Comment Spec In Lab Yuan Webber MD MICROBIOLOGY - BLOOD ORDERAB LES Performing Organization Address City/[facility]/ZIP Code Phon e [place] [address] (ABNORMAL) Urinalysis Microscopic Exam (07/09/2017 12:05 AM EST) Analysis Performed At Patho logist Time Signature RBC UA 32 (H) 0 - 3 /HPF [facility] LABORATORY WBC UA 5 (H) 0 - 3 /HPF [facility] Squam Epith UA <1 <=4 /HPF [facility] Hyaline Cast 17 (H) 0 - 2 /LPF [facility] Gran Cast UA 1 (H) <=0 /LPF [facility] Uric Ac Bianca Rare (A) None /HPF [facility] Specimen (Source) Anatomical Collection Method Collection Time Re ceived Time Location / / Volume Laterality Urine specimen 07/09/2017 12:05 7 obtained via AM EST 12:39 AM EST indwelling urinary catheter (specimen) Resulting Agency Comment Spec In Lab Yuan Webber MD URINE ORDERABLES Performing Organization Address City/State/ZIP Code Phon [place] [address] (ABNORMAL) Urinalysis with reflex Culture (07/09/2017 12:05 AM EST) Patholo gist Method Time Signature Glucose UA Negative Negative [facility] mg/dL [facility] Protein UA 30 (A) Negative [facility] mg/dL [facility] Bilirubin UA Negative Negative [facility] mg/dL [facility] Comment: Clinical correlation [...] CENTER LABORATORY Ketones UA Negative Negative mg/dL [facility] Nitrite UA Negative Negative [facility] LABORATORY Leukocytes UA Negative Negative [facility] LABORATORY Appearance UA Hazy (A) Clear [place] Wyatt [facility] LABORATORY Spec [place] UA 1.025 1.002 - 1.030 [facility] LABORATORY Color UA Yellow Yellow [facility] Culture Reflexed No [facility] LABOR[facility]ORY Specimen (Source) Anatomical Collection Method Collection Time Re ceived Time Location / / Volume Laterality Urine specimen 07/09/2017 12:05 7 obtained via AM EST 12:39 AM EST indwelling urinary catheter (specimen) Resulting Agency Comment Spec In Lab Yuan Webber MD URINE ORDERABLES Performing Organization Address City/State/ZIP Code Phon e Number [address] POCT Glucose (07/08/2017 11:01 PM EST) athologist Signature POC Glucose 191 65 - [address] [facility] Comment: Supplemental [...] [facility]/ZIP Code Phon e Number [address] POCT Glucose (07/08/2017 10:04 PM EST) athologist Signature POC Glucose 198 65 - 199 [facility] Comment: Supplemental ranges: [...] e [place] [address] Prepare Albumin 5% in [...] Address City/State/ZIP Code Phon e Number [address] POCT Glucose (07/08/2017 8:28 PM EST) athologist Signature POC Glucose 195 65 - 199 [facility]dL [facility] Comment: Supplemental ranges: <140 mg/dL before meals <180 mg/dL all other times of the day Specimen Anatomical Collection Method Collection Time Receive d Time (Source) Location / / Volume Laterality Blood specimen 07/08/2017 8:28 PM 017 8:28 (specimen) EST PM EST Yuan Webber MD POINT OF CARE TEST ORDERABLE S Performing Organization Address City/State/ZIP Code Phon e Number [address] (ABNORMAL) POCT Glucose (07/08/2017 7:13 PM EST) athologist Signature POC Glucose 220 (H) 65 - 199 [facility] mg[facility]dL [facility] Comment: Supplemental ranges: <140 mg/dL before meals <180 mg/dL all other times of the day Specimen Anatomical Collection Method Collection Time Receive d Time (Source) Location / / Volume Laterality Blood specimen 07/08/2017 7:13 PM 017 7:13 (specimen) EST PM EST Yuan Webber MD POINT OF CARE TEST ORDERABLE S Performing Organization Address City/State/ZIP Code Phon e Number [address] POCT Glucose (07/08/2017 5:04 PM EST) P athologist Signature POC Glucose 147 65 - 199 [facility] mg/dL [facility] Comment: Supplemental ranges: <140 mg/dL before meals <180 mg/dL all other times of the day Specimen Anatomical Collection Method Collection Time Receive d Time (Source) Location / / Volume Laterality Blood specimen 07/08/2017 5:04 PM 017 5:04 (specimen) EST PM EST Yuan Webber MD POINT OF CARE TEST ORDERABLE S Performing Organization Address City/State/[place] [address] (ABNORMAL) BLOOD GAS 2 ARTERIAL (07/08/2017 4:13 PM EST) Analysis Performed At Patho logist Time Signature pH Art 7.38 7.35 - [facility] 7.45 [facility] pCO2 Art 36 35 - 45 [facility] mmHg [facility] pO2 Art 91 85 - 104 [facility] LABORATORY HCO3 Art 20.9 20.0 - [facility] 26.0 [facility] mmol/L [facility] LABORATORY BE Art -4.2 (L) -3.0 - 3.0 [facility] mmol/L [facility] Hgb Blood Gas 11.7 (L) 13.7 - [facility] 16.5 gm/dL [facility] O2HB Art 95.1 94.0 - [facility] 97.0 % [facility] COHB Art 0.6 % [facility] PF Ratio Art 228 [facility] LABORATORY Specimen Anatomical Collection Method Collection Time Receive d Time (Source) Location / / Volume Laterality Blood specimen 07/08/2017 4:13 PM 017 4:13 (specimen) EST PM EST Yuan Webber MD CHEMISTRY ORDERABLES Performing Organization Address City/[facility]/ZIP [facility] Phon e Number [address] POCT Glucose (07/08/2017 4:01 PM EST) athologist Signature POC Glucose 148 65 - 199 [facility] mg[facility]dL [facility] Comment: Supplemental ranges: [...] [facility]/ZIP Code Phon e [place] [address] POCT Glucose (07/08/2017 3:21 PM EST) P athologist Signature POC Glucose 118 65 - 199 [facility] mg/dL [facility] Comment: Supplemental ranges: <140 mg/dL before meals <180 mg/dL all other times of the day Specimen Anatomical Collection Method Collection Time Receive d Time (Source) Location / / Volume Laterality Blood specimen 07/08/2017 3:21 PM 017 3:21 (specimen) EST PM EST Yuan Webber MD POINT OF CARE TEST ORDERABLE S Performing Organization Address City/State/ZIP Code Phon e Number [address] POCT Glucose (07/08/2017 2:01 PM EST) P athologist Signature POC Glucose 129 65 - 199 [place] mg/dL [facility] Comment: Supplemental ranges: [...] [facility]/ZIP Code Phon e Number [address] POCT Glucose (07/08/2017 11:53 AM EST) athologist Signature POC Glucose 156 65 - 199 [place] mg/dL [facility] Comment: Supplemental ranges: <140 mg/dL before meals <180 mg/dL all other times of the day Specimen Anatomical Collection Method Collection Time Receive d Time (Source) Location / / Volume Laterality Blood specimen 07/08/2017 11:53 7 (specimen) AM EST 11:53 AM EST Yuan Webber MD POINT OF CARE TEST ORDERABLE S Performing Organization Address City/State/ZIP Code Phon e Number [address] POCT Glucose (07/08/2017 11:04 AM EST) athologist Signature POC Glucose 181 65 - 199 [place] mg/dL [facility] Comment: Supplemental ranges: [...] e [place] [address] (ABNORMAL) POCT Glucose (07/08/2017 9:24 AM EST) athologist Signature POC Glucose 203 (H) 65 - 199 [facility] mg/dL [facility] Comment: Supplemental [...] [facility]/ZIP Code Phon e [place] [address] APTT (07/08/2017 8:40 AM EST) athologist Signature PTT 33 25 - 35 sec [facility] Comment: The recommended therapeutic range for fu ll dose, unfractionated heparin at [facility] is 80 ? 114 [...] [facility]/ZIP Code Phon e [place] [address] (ABNORMAL) Prothrombin Time (07/08/2017 8:40 AM EST) athologist Signature PT 15.6 (H) 11.8 - 14.0 [facility] [...] e [place] [address] (ABNORMAL) POCT Glucose (07/08/2017 7:38 AM EST) P athologist Signature POC Glucose 232 (H) 65 - 199 [facility] mg/dL [facility] Comment: Supplemental ranges: [...] [facility]/ZIP Code Phon e [place] [address] (ABNORMAL) POCT Glucose (07/08/2017 7:07 AM EST) athologist Signature POC Glucose 234 (H) 65 - 199 [facility] mg/dL [facility] Comment: Supplemental ranges: [...] [facility]/ZIP Code Phon e [place] [address] (ABNORMAL) POCT Glucose (07/08/2017 6:04 AM EST) athologist Signature POC Glucose 225 (H) 65 - 199 [facility] mg/dL [facility] Comment: Supplemental ranges: [...] e [place] [address] (ABNORMAL) POCT Glucose (07/08/2017 5:31 AM EST) athologist Signature POC Glucose 216 (H) 65 - 199 [facility] mg/dL [facility] Comment: Supplemental ranges: [...] e [place] [address] (ABNORMAL) POCT Glucose (07/08/2017 4:52 AM EST) athologist Signature POC Glucose 257 (H) 65 - 199 [facility] mg/dL [facility] Comment: Supplemental ranges: [...] e [place] [address] (ABNORMAL) BLOOD GAS 2 ARTERIAL (07/08/2017 4:04 AM EST) Analysis Performed At Patho logist Time Signature pH Art 7.30 (L) 7.35 - [facility] 7.45 [facility] pCO2 Art 41 35 - 45 [facility] mmHg [facility] pO2 Art 83 (L) 85 - 104 [facility] LABORATORY HCO3 Art 19.6 (L) 20.0 - [facility] 26.0 [facility] mmol/L [facility] LABORATORY BE Art -6.8 (L) -3.0 - 3.0 [facility] mmol/L [facility] Hgb Blood Gas 12.2 (L) 13.7 - [facility] 16.5 gm/dL [facility] O2HB Art 93.5 (L) 94.0 - [facility] 97.0 % [facility] COHB Art 0.4 % [facility] [...] [facility] Comment: Noted by instrumentation technician. FIO2 Art 40 % [facility] PF Ratio Art 208 [facility] LABORATORY Specimen Anatomical Collection Method Collection Time Receive d Time (Source) Location / / Volume Laterality Blood specimen 07/08/2017 4:04 AM 017 4:04 (specimen) EST AM EST Daphne Shahid MD CHEMISTRY ORDERABLES Performing Organization Address City/State/ZIP Code Phon e Number [address] Scan, Peripheral Blood (07/08/2017 [...] [facility]/ZIP Code Phon e Number [address] (ABNORMAL) Differential, Automated (07/08/2017 4:00 AM EST) Patholo gist Method Time Signature Neutrophils % 85.4 % [facility] LABORATORY Neutr Abs (ANC) 16.07 (H) 1.70 - [facility] 6.10 [facility] x10(3)/[facility] L LABORATORY Lymphocytes % 3.5 % [facility] LABORATORY Lymphocytes Abs 0.6 (L) 0.9 - 3.2 [facility] x10(3)/[facility] LABORATORY Monocytes % 10.4 % [facility] LABORATORY Monocyte Abs 2.0 (H) 0.3 - 0.9 [facility] x10(3)/[facility] LABORATORY Eosinophils % 0.0 % [facility] LABORATORY Eosinophils Abs 0.0 0.0 - 0.4 [facility] x10(3)/[facility] LABORATORY Basophils % 0.1 % [facility] LABORATORY Basophils Abs 0.0 0.0 - 0.1 [facility] x10(3)/[facility] LABORATORY Immature Gran % 0.60 % [facility] [...] 0.12 (H) 0.00 - 0.04 x10(3)/[facility] LABORATORY Specimen Anatomical Collection Method Collection Time Receive d Time (Source) Location / / Volume Laterality Blood specimen 07/08/2017 4:00 AM 017 4:09 (specimen) EST AM EST Resulting Agency Comment Spec In Lab Yuan Webber MD HEMATOLOGY ORDERABLES Performing Organization Address City/State/ZIP Code Phon e Number [place] [id number]OSP[address] (ABNORMAL) Hemogram (07/08/2017 4:00 AM EST) Analysis Performed At Patho logist Time Signature WBC 18.8 (H) 4.0 - 9.5 [facility] x10(3)/[facility] LABORATORY RBC 4.00 (L) 4.58 - [facility] Aurality 5.54 [facility] x10(6)/[facility] LABORATORY Hemoglobin 11.9 (L) 13.7 - [facility] 16.[facility] gm/dL [facility] LABOR[facility]ORY Hematocrit 35.9 (L) 40.5 - [facility] SU 48.5 % [facility] LABORATORY MCV 89.8 82.9 - [facility] SU 93.1 [facility] LABORATORY MCH 29.8 27.5 - [place] 32.1 pg [facility]ORATORY MCHC 33.1 32.0 [facility] 35.7 gm/dL [facility] Platelets 232 145 - 357 [facility] x10(3)/[facility] LABORATORY RDWSD 47.6 (H) 36.0 - [facility] SU 45.0 [facility] RDWCV 14.5 (H) 11.4 - [facility] SU 13.8 % [facility] LABORATORY MPV 9.5 7.6 - 12.9 [facility] LABORATORY nRBC % Auto 0.0 % [facility] LABORATORY nRBC Abs Auto 0.000 0.000 - [facility] 0.000 [facility] x10(3)/[facility] LABORATORY Specimen Anatomical Collection Method Collection Time Receive d Time (Source) Location / / Volume Laterality Blood specimen 07/08/2017 4:00 AM 017 4:09 (specimen) EST AM EST Resulting Agency Comment Spec In Lab Yuan Webber MD HEMATOLOGY ORDERABLES Performing Organization Address City/[facility]/ZIP Code Phon [place] [address] (ABNORMAL) Electrolytes panel (07/08/2017 4:00 AM EST) athologist Signature Sodium 139 135 - 145 [facility] mmol/L [facility] LABORATORY Potassium 4.7 3.5 - 5.0 [facility] mmol/L [facility] Comment: result rechecked-K Please note: [...] [facility]/ZIP Code Phon [place] [address] (ABNORMAL) Cardiac Enzymes (LEB/CGP) (07/08/2017 4:00 AM EST) P athologist Signature Troponin-T 1.88 (H) 0.00 - [facility] 0.00 ng/mL [facility]OR[facility] Comment: [...] additional sample may be indicated. Reference: Third Johnson Definition of Myocardial Infarction. Journal of the [place] [employer] 2012;60:1581-98 CK, Total 413 (H) 0 - 200 unit/L [facility] LABORATORY Comment: result rechecked-K Specimen Anatomical Collection Method Collection Time Receive d Time (Source) Location / / Volume Laterality Blood specimen 07/08/2017 4:00 AM 017 4:09 (specimen) EST AM EST Resulting Agency Comment Spec In Lab Yuan Webber MD CHEMISTRY ORDERABLES Performing Organization Address City/State/[place] [address] (ABNORMAL) Glucose, fasting (07/08/2017 4:00 AM EST) athologist Signature Glucose 287 (H) 65 - 99 [facility] Fasting mg/dL [facility]OR[facility] Comment: [...] of Diabetes Mellitus, Position Statement from the [place] [employer]. ??Diabete s Care, Volume 33, Supplement 1, Jul 2009 Specimen Anatomical Collection Method Collection Time Receive d Time (Source) Location / / Volume Laterality Blood specimen 07/08/2017 4:00 AM 017 4:09 (specimen) EST AM EST Resulting Agency Comment Spec In Lab Yuan Webber MD CHEMISTRY ORDERABLES Performing Organization Address [facility] Code Phon [place] Number [place] [address] (ABNORMAL) Creatinine (07/08/2017 4:00 AM EST) Analysis Performed At Patho logist Time Signature Creatinine 1.55 (H) 0.80 [facility] 1.50 mg/dL [facility] Estimated GFR 44 (L) >=60 [facility]OR[facility] Comment: The reported eGFR should be multiplied b y 1.2 for patients. The MDRD is not an appropriate measure o f renal function for patients with body mass extremes or in patients with acute kidney failure. http://MEDOVENT.Damballa/DHnkdep http://MEDOVENT.Damballa/DHMCnkf Specimen Anatomical Collection Method Collection Time Receive d Time (Source) Location / / Volume Laterality Blood specimen 07/08/2017 4:00 AM 017 4:09 (specimen) EST AM EST Resulting Agency Comment Spec In Lab Yuan Webber MD CHEMISTRY ORDERABLES Performing Organization Address City/[facility]/ZIP Code Phon e Number [address] BUN (07/08/2017 4:00 AM EST) P athologist Signature BUN 16 10 - 20 [facility] mg/dL [facility] Specimen Anatomical Collection Method Collection Time Receive d Time (Source) Location / / Volume Laterality Blood specimen 07/08/2017 4:00 AM 017 4:09 (specimen) EST AM EST Resulting Agency Comment Spec In Lab Yuan Webber MD CHEMISTRY ORDERABLES Performing Organization Address City/[facility]/ZIP Code Phon [place] Number [place] [address] (ABNORMAL) POCT Glucose (07/08/2017 3:00 AM EST) P athologist Signature POC Glucose 273 (H) 65 - 199 [facility] mg/dL [facility] Comment: Supplemental ranges: [...] [facility]/ZIP Code Phon [place] [address] (ABNORMAL) POCT Glucose (07/08/2017 1:57 AM EST) P athologist Signature POC Glucose 288 (H) 65 - 199 [facility] mg/dL [facility] Comment: Supplemental ranges: [...] [place] [address] (ABNORMAL) POCT Glucose (07/08/2017 1:01 AM EST) P athologist Signature POC Glucose 315 (H) 65 - 199 [facility] mg/dL [facility] Comment: Supplemental ranges: <140 mg/dL before meals <180 mg/dL all other times of the day Specimen Anatomical Collection Method Collection Time Receive d Time (Source) Location / / Volume Laterality Blood specimen 07/08/2017 1:01 AM 017 1:01 (specimen) EST AM EST Daphne Shahid MD POINT OF CARE TEST ORDERABLE S Performing Organization Address City/State/[place] [address] (ABNORMAL) BLOOD GAS 2 ARTERIAL (07/08/2017 12:09 AM EST) athologist Signature pH Art 7.26 7.35 - [facility] (Critical) 7.45 [facility]OR[facility] Comment: Noted by instrumentation technician. pCO2 Art 41 35 - 45 [...] [facility] LAB[facility] Comment: Noted by instrumentation technician. FIO2 Art 40 % [facility] LABORATORY PF Ratio Art 240 [facility] [...] [facility]/ZIP Code Phon [place] [address] (ABNORMAL) POCT Glucose (07/07/2017 10:56 PM EST) P athologist Signature POC Glucose 292 (H) 65 - 199 [facility] mg/dL [facility] Comment: Supplemental [...] [place] [address] (ABNORMAL) BLOOD GAS 2 ARTERIAL (07/07/2017 10:04 PM EST) P athologist Signature pH Art 7.22 7.35 - [facility] (Critical) 7.45 [facility] Comment: Noted by instrumentation technician. pCO2 Art 42 35 - 45 [...] [facility] Comment: Noted by instrumentation technician. FIO2 Art 40 % [facility] LABORATORY PF Ratio Art 235 [facility] LABORATORY Specimen Anatomical Collection Method Collection Time Receive d Time (Source) Location / / Volume Laterality Blood specimen 07/07/2017 10:04 7 (specimen) PM EST 10:04 PM EST Daphne Shahid MD CHEMISTRY ORDERABLES Performing Organization Address City/State/[place] [address] (ABNORMAL) Hemoglobin (07/07/2017 10:00 PM EST) athologist Signature Hemoglobin 12.8 (L) 13.7 - [place] [facility] 16.5 gm/dL [facility] LABOR[facility] Specimen Anatomical Collection Method Collection Time Receive d Time (Source) Location / / Volume Laterality Blood specimen 07/07/2017 10:00 7 (specimen) PM EST 10:13 PM EST Resulting Agency Comment Spec In Lab Yuan Webber MD HEMATOLOGY ORDERABLES Performing Organization Address City/[facility] Phon e [place] [address] (ABNORMAL) Potassium (07/07/2017 10:00 PM EST) athologist [facility] Potassium 3.4 (L) 3.5 - 5.0 [facility] mmol/L [facility] Comment: Please note: [...] Webber MD CHEMISTRY ORDERABLES Performing Organization Address [facility] Phon e [place] [address] (ABNORMAL) POCT Glucose (07/07/2017 8:49 PM EST) athologist [facility] POC Glucose 241 (H) 65 - 199 [facility] mg/dL [facility] Comment: Supplemental ranges: [...] [facility]/ZIP Code Phon e Number [address] Prepare Albumin 5% in [...] [facility]/ZIP Code Phon e Number [address] EKG 12 Lead (07/07/2017 7:17 PM EST) Component Value Ref Range Test Analysis Performed Pathologis t Method Time At Signature Ventricular rate 75 BPM MUSE SYSTEM Atrial Rate 75 BPM MUSE SYSTEM P-R Interval 168 ms MUSE SYSTEM QRS Duration 104 ms MUSE SYSTEM Q-T Interval 462 ms MUSE SYSTEM QTC Calculated 515 ms MUSE SYSTEM (Bezet) Calculated P [place] 52 degrees MUSE SYSTEM Calculated R [place] -40 degrees MUSE SYSTEM Calculated T [place] 39 degrees MUSE SYSTEM INTERPRETATION Normal sinus [...] Webber MD ECG ORDERABLES Performing Organization Address City/[facility] [...] athologist Signature pH Art 7.21 7.35 - [facility] (Critical) 7.45 [facility] Comment: Noted by instrumentation technician. pCO2 Art 50 (H) 35 - [...] Blood 3.0 (Critical) 3.5 - 5.0 mmol/L [facility] LABORATORY Comment: Noted by instrumentation technician. Please note: Patients with WBC >100,000 [...] [facility] Comment: Noted by instrumentation technician. FIO2 Art 100 % [facility] LABORATORY PF Ratio Art 238 [facility] LABORATORY Specimen Anatomical Collection Method Collection Time Receive d Time (Source) Location / / Volume Laterality Blood specimen 07/07/2017 6:57 PM 017 6:57 (specimen) EST PM EST Daphne Shahid MD CHEMISTRY ORDERABLES Performing Organization Address City/State/[place] [address] (ABNORMAL) BLOOD GAS 2 ARTERIAL (07/07/2017 5:31 PM EST) athologist Signature pH Art 7.29 7.35 - [facility] (Critical) 7.45 [facility] Comment: Noted by instrumentation technician. pCO2 Art 48 (H) 35 - [...] [facility]/ZIP Code Phon [place] [address] Fibrinogen (07/07/2017 5:30 PM EST) athologist Signature Fibrinogen 224 180 - 510 [facility] mg/dL [facility] Comment: Called [...] City/[facility] Code Phon e Number [address] APTT (07/07/2017 5:30 PM EST) athologist Signature PTT 30 25 - 35 sec [facility] LABORATORY Comment: The recommended therapeutic range for fu ll dose, unfractionated heparin at [facility] is 80 ? 114 [...] [facility]/ZIP [facility] Phon [place] [address] (ABNORMAL) Prothrombin Time (07/07/2017 5:30 PM EST) athologist Signature PT 19.0 (H) 11.8 - 14.0 [facility] sec [facility] INR 1.6 (H) 0.9 - [...] Organization Address City/State/[place] [address] (ABNORMAL) Hemogram (07/07/2017 5:30 PM EST) athologist Signature WBC 19.6 (H) 4.0 - 9.5 [facility] x10(3)/[facility] LABORATORY RBC 3.08 (L) 4.58 - [facility] 5.54 [facility] x10(6)/[facility] LABORATORY Hemoglobin 9.2 (L) 13.7 - [facility] 16.5 gm/dL [facility] LABORATORY Hematocrit 28.0 (L) 40.5 - [facility] 48.5 % [facility] Comment: This result has been called to MONICA MORAN by DONALD GROSSMAN on 07 07 2017 at 1759, and has been read back. MCV 90.9 82.9 - 93.1 fL [facility] LABORATORY MCH 29.9 27.5 - 32.1 pg [facility] LABORATORY MCHC 32.9 32.0 - 35.7 gm/dL [facility] LABORATORY Platelets 155 145 - 357 x10(3)/[facility] LABORATORY RDWSD 46.5 (H) 36.0 - 45.0 fL [facility] LABORATORY RDWCV 14.1 (H) 11.4 - 13.8 % [facility] LABORATORY MPV 9.5 7.6 - 12.9 fL [facility] LABORATORY nRBC % Auto 0.0 % [facility] LABORATORY nRBC Abs Auto 0.000 0.000 - 0.000 x10(3)/[facility] LABORATORY Specimen Anatomical Collection Method Collection Time Receive d Time (Source) Location / / Volume Laterality Blood specimen 07/07/2017 5:30 PM 017 5:34 (specimen) EST PM EST Resulting Agency Comment Spec In Lab Yifan Perez MD HEMATOLOGY ORDERABLES Performing Organization Address City/[facility] Phon e Number [address] Prepare Platelets, Apheresis (07/07/2017 5:00 PM EST) athologist Signature Dispensed? Yes [facility] LABORATORY Specimen Anatomical Collection Method Collection Time Receive d Time (Source) Location / / Volume Laterality Blood specimen 07/07/2017 5:00 PM 017 4:58 (specimen) EST PM EST Daphne Shahid MD BLOOD BANK ORDERABLES Performing Organization Address [facility] Phon e Number [address] Platelet count (07/07/2017 4:55 PM EST) athologist Signature Platelets 177 145 - 357 [facility] x10(3)/[facility] LABORATORY Plat Immature 1.5 0.0 - 7.4 [facility] LABORATORY Comment: Limitation of the Immature Platelet Frac tion (IPF)-May be less reliable when the platelet count is less than 85y045/u L due to statistical imprecision. The IPF [...] in a decreased state of production. References: [employer] The Clinical Value of the Immature Platelet Fraction (IPF) in Cell Recovery Document Number 10-1143 12/2010 [employer] The Role of the Imm ature [...] [facility]/ZIP Code Phon [place] [address] (ABNORMAL) Hemoglobin and Hematocrit, blood (07/07/2017 4:55 PM EST) athologist Signature Hemoglobin 9.1 (L) 13.7 - 16.5 [facility] gm/dL [facility] Comment: This result [...] [facility]/ZIP Code Phon [place] [address] (ABNORMAL) BLOOD GAS 2 ARTERIAL (07/07/2017 4:38 PM EST) Analysis Performed At Patho logist Time Signature pH Art 7.37 7.35 - [facility] 7.45 [facility]OR[facility]ORY pCO2 Art 44 35 - 45 [facility] mmHg [facility] pO2 Art 322 (H) 85 - 104 [facility] mmHg [facility] HCO3 Art 24.9 20.0 - [facility] 26.0 [facility] mmol/L [facility] LABORATORY BE Art -0.4 -3.0 - 3.0 [facility] mmol/L [facility] Hgb Blood Gas 10.1 (L) 13.7 - [facility] 16.5 gm/dL [facility] O2HB Art 98.7 (H) 94.0 - [facility] 97.0 % [facility] COHB Art 0.1 % [facility] LABORATORY [...] [facility] Comment: Noted by instrumentation technician. Note: ??Total bilirubin higher than 20 [...] Organization Address City/State/[place] [address] (ABNORMAL) BLOOD GAS 2 VENOUS (07/07/2017 4:06 PM EST) Analysis Performed At Patho logist Time Signature pH Cody 7.31 (L) 7.32 - [facility] 7.42 [facility] LABORATORY pCO2 [place] 47 41 - 51 [facility] LABORATORY pO2 [place] 53 (H) 25 - 40 [facility] LABORATORY HCO3 [place] 22.7 mmol/L [facility] LABORATORY BE Cody -3.7 mmol/L [facility] LABORATORY Hgb Blood Gas 10.2 (L) 13.7 - [facility] 16.5 gm/dL [facility] LABOR[facility]ORY O2HB [place] 81.0 % [facility] [...] [facility] Comment: Noted by instrumentation technician. Note: ??Total bilirubin higher than 20 [...] [facility] LABORATORY BGas Source Venous [facility] LABOR[facility]ORY Specimen Anatomical Collection Method Collection Time Receive d Time (Source) Location / / Volume Laterality Blood specimen 07/07/2017 4:06 PM 017 4:06 (specimen) EST PM EST Daphne Shahid MD CHEMISTRY ORDERABLES Performing Organization Address City/State/[place] [address] (ABNORMAL) BLOOD GAS 2 ARTERIAL (07/07/2017 4:05 PM EST) Analysis Performed At Patho logist Time Signature pH Art 7.36 7.35 - [facility] 7.45 [facility] LABORATORY pCO2 Art 40 35 - 45 [facility] LABORATORY pO2 Art 282 (H) 85 - 104 [facility] LABORATORY HCO3 Art 22.1 20.0 - [facility] 26.0 [facility] mmol/L [facility] LABORATORY BE Art -3.4 (L) -3.0 - 3.0 [facility] mmol/L [facility]ORAT[facility] Hgb Blood Gas 10.2 (L) 13.7 - [facility] 16.5 gm/dL [facility]OR[facility] O2HB Art 98.4 (H) 94.0 - [facility] 97.0 % [facility]OR[facility]ORY COHB Art 0.3 % [facility] [...] [facility] Comment: Noted by instrumentation technician. Note: ??Total bilirubin higher than 20 [...] Organization Address City/State/[place] [address] (ABNORMAL) BLOOD GAS 2 ARTERIAL (07/07/2017 2:29 PM EST) Analysis Performed At Patho logist Time Signature pH Art 7.43 7.35 - [facility] 7.45 [facility]OR[facility]ORY pCO2 Art 36 35 - 45 [facility] mmHg [facility] pO2 Art 221 (H) 85 - 104 [facility] LABORATORY HCO3 Art 23.2 20.0 - [facility] 26.0 [facility] mmol/[facility] LABORATORY BE Art -1.2 -3.0 - 3.0 [facility] mmol/L [facility]ORATORY Hgb Blood Gas 13.9 13.7 - [facility] 16.5 gm/dL [facility] O2HB Art 97.8 (H) 94.0 - [facility] 97.0 % [facility]ORATORY COHB Art 1.1 % [facility] [...] City/[facility] Code Phon [place] [address] Prepare Coag Factors (Non-Hemophilia) [...] [facility]/ZIP Code Phon [place] [address] Prepare RBC (07/07/2017 1:10 [...] [facility]/[place] [address] POCT Glucose (07/07/2017 11:56 AM EST) athologist Signature POC Glucose 188 65 - 199 [place] [facility] mg/dL [facility] Comment: Supplemental ranges: <140 mg/dL before meals <180 mg/dL all other times of the day Specimen Anatomical Collection Method Collection Time Receive d Time (Source) Location / / Volume Laterality Blood specimen 07/07/2017 11:56 7 (specimen) AM EST 11:56 AM EST Daphne Shahid MD POINT OF CARE TEST ORDERABLE S Performing Organization Address City/State/ZIP Code Phon e Number [address] POCT Glucose (07/07/2017 11:05 AM EST) athologist Signature POC Glucose 168 65 - 199 [facility] mg/dL [facility] Comment: Supplemental ranges: <140 mg/dL before meals <180 mg/dL all other times of the day Specimen Anatomical Collection Method Collection Time Receive d Time (Source) Location / / Volume Laterality Blood specimen 07/07/2017 11:05 7 (specimen) AM EST 11:05 AM EST Daphne Shahid MD POINT OF CARE TEST ORDERABLE S Performing Organization Address City/State/ZIP Code Phon e Number [address] POCT Glucose (07/07/2017 10:02 AM EST) athologist Signature POC Glucose 191 65 - 199 [place] [facility] mg/dL [facility] Comment: Supplemental ranges: [...] e [place] [address] POCT Glucose (07/07/2017 7:53 AM EST) athologist Signature POC Glucose 178 65 - 199 [place] [facility] mg/dL [facility] Comment: Supplemental ranges: [...] e [place] [address] POCT Glucose (07/07/2017 7:03 AM EST) athologist Signature POC Glucose 188 65 - 199 [facility] mg/dL [facility] Comment: Supplemental ranges: [...] [place] [address] (ABNORMAL) POCT Glucose (07/07/2017 6:17 AM EST) athologist Signature POC Glucose 207 (H) 65 - 199 [facility] Comment: Supplemental ranges: [...] e [place] [address] Differential, Automated (07/07/2017 5:15 AM EST) P athologist Signature Neutrophils % 69.7 % [facility] LABORATORY Neutr Abs (ANC) 5.32 1.70 - [facility] 6.10 [facility] x10(3)/[facility] LABORATORY Lymphocytes % 16.3 % [facility] LABORATORY Lymphocytes Abs 1.2 0.9 - 3.2 [facility] x10(3)/[facility] LABORATORY Monocytes % 10.5 % [facility] LABORATORY Monocyte Abs 0.8 0.3 - 0.9 [facility] x10(3)/[facility] LABORATORY Eosinophils % 2.5 % [facility] LAB[facility]ORY Eosinophils Abs 0.2 0.0 - 0.4 [facility] x10(3)/[facility] LABORATORY Basophils % 0.7 % [facility] LABORATORY Basophils Abs 0.0 0.0 - 0.1 [facility] x10(3)/[facility] LABORATORY Immature Gran % 0.30 [...] [facility] MAR Y [facility] LABORATORY Specimen Anatomical Collection Method Collection Time Receive d Time (Source) Location / / Volume Laterality Blood specimen 07/07/2017 5:15 AM 017 5:34 (specimen) EST AM EST Resulting Agency Comment Spec In Lab Daphne Shahid MD HEMATOLOGY ORDERABLES Performing Organization Address City/State/[place] [address] (ABNORMAL) Hemogram (07/07/2017 5:15 AM EST) Analysis Performed At Patho logist Time Signature WBC 7.6 4.0 - 9.5 [facility] x10(3)/[facility] LABORATORY RBC 4.82 4.58 - [facility] 5.54 [facility] x10(6)/[facility] LABORATORY Hemoglobin 14.4 13.[address] [facility] 16.[facility] gm/dL [facility] LABORATORY Hematocrit 42.1 40[address] [facility] 48.5 % [facility] LABORATORY MCV 87.3 82.9 - [facility] 93.1 [facility] LABORATORY MCH 29.9 27.5 - [place] 32.1 pg [facility] LABORATORY MCHC 34.2 32.0 - [facility] 35.7 gm/dL [facility] LABORATORY Platelets 188 145 - 357 [facility] x10(3)/[facility] LABORATORY RDWSD 45.1 (H) 36.0 - [facility] 45.0 [facility] LABORATORY RDWCV 14.3 (H) 11.4 - [facility] 13.8 % [facility] LABORATORY MPV 9.4 7.6 - 12.9 [facility] LABORATORY nRBC % Auto 0.0 % [facility] LABORATORY nRBC Abs Auto 0.000 0.000 - [facility] 0.000 [facility] x10(3)/[facility] LABORATORY Specimen Anatomical Collection Method Collection Time Receive d Time (Source) Location / / Volume Laterality Blood specimen 07/07/2017 5:15 AM 017 5:34 (specimen) EST AM EST Resulting Agency Comment Spec In Lab Daphne Shahid MD HEMATOLOGY ORDERABLES Performing Organization Address City/State/[place] [address] (ABNORMAL) APTT (07/07/2017 5:15 AM EST) P athologist Signature PTT 69 (H) 25 - 35 sec [facility] LABORATORY Comment: The recommended therapeutic range for fu ll dose, unfractionated heparin at [facility] is 80 ? 114 [...] Address City/State/ZIP Code Phon e Number [address] Magnesium (07/07/2017 5:15 AM EST) athologist Signature Magnesium 0.94 0.69 - 1.07 [facility] mmol/L [facility] LABORATORY Specimen Anatomical Collection Method Collection Time Receive d Time (Source) Location / / Volume Laterality Blood specimen 07/07/2017 5:15 AM 017 5:34 (specimen) EST AM EST Resulting Agency Comment Spec In Lab Daphne Shahid MD CHEMISTRY ORDERABLES Performing Organization Address City/[facility]/ZIP Code Phon e Number [address] (ABNORMAL) Basic Metabolic Panel (non-fasting) (07/07/2017 5:15 AM EST) athologist Signature Glucose Lvl 203 (H) 65 - 199 [facility] mg/dL [facility] LABORATORY Comment: Diabetes: [...] [facility] Estimated GFR >60 >=60 [facility] Comment: The reported eGFR should be multiplied b y 1.2 for patients. The MDRD is not an appropriate measure o f renal function for patients with body mass extremes or in patients with acute kidney failure. http://Canines/DHnkdep http://Canines/DHMCnkf Specimen Anatomical Collection Method Collection Time Receive d Time (Source) Location / / Volume Laterality Blood specimen 07/07/2017 5:15 AM 017 5:34 (specimen) EST AM EST Resulting Agency Comment Spec In Lab Daphne Shahid MD CHEMISTRY ORDERABLES Performing Organization Address City/State/[place] [address] (ABNORMAL) Cardiac Enzymes (LEB/CGP) (07/07/2017 5:15 AM EST) P athologist Signature Troponin-T 2.07 (H) 0.00 - [facility] 0.00 ng/mL [facility] LABORATORY Comment: The [...] additional sample may be indicated. Reference: Third Johnson Definition of Myocardial Infarction. Journal of the [place] [employer] 2012;60:1581-98 CK, Total 88 0 - 200 unit/L [facility] LABORATORY Specimen Anatomical Collection Method Collection Time Receive d Time (Source) Location / / Volume Laterality Blood specimen 07/07/2017 5:15 AM 017 5:34 (specimen) EST AM EST Resulting Agency Comment Spec In Lab Daphne Shahid MD CHEMISTRY ORDERABLES Performing Organization Address City/State/ZIP Code Phon e Number [address] POCT Glucose (07/07/2017 5:01 AM EST) athologist Signature POC Glucose 182 65 - [address] [facility] mg/dL [facility] LABORATORY Comment: Supplemental [...] Address City/State/ZIP Code Phon e Number [address] POCT Glucose (07/07/2017 4:08 AM EST) athologist Signature POC Glucose 199 65 - 199 [facility] mg/dL [facility] LABORATORY Comment: Supplemental ranges: <140 mg/dL before meals <180 mg/dL all other times of the day Specimen Anatomical Collection Method Collection Time Receive d Time (Source) Location / / Volume Laterality Blood specimen 07/07/2017 4:08 AM 017 4:08 (specimen) EST AM EST Daphne Shahid MD POINT OF CARE TEST ORDERABLE S Performing Organization Address City/State/ZIP Code Phon e Number [address] POCT Glucose (07/07/2017 3:03 AM EST) athologist Signature POC Glucose 188 65 - 199 [facility] mg/dL [facility] LABORATORY Comment: Supplemental ranges: [...] [place] [address] (ABNORMAL) POCT Glucose (07/07/2017 2:08 AM EST) P athologist Signature POC Glucose 200 (H) 65 - 199 [facility] mg/dL [facility] LABOR[facility]ORY Comment: Supplemental ranges: [...] [facility]/ZIP Code Phon [place] [address] (ABNORMAL) POCT Glucose (07/07/2017 1:31 AM EST) P athologist Signature POC Glucose 209 (H) 65 - 199 [facility] mg/dL [facility] LABORATORY Comment: Supplemental ranges: [...] [facility]/ZIP Code Phon [place] [address] XR Chest PA or [...] appreciable change in appearance of the chest. aDphne Shahid MD IMG DX ORDERABLES POCT Glucose (07/07/2017 12:07 AM EST) athologist Signature POC Glucose 161 65 - 199 [facility] mg/dL [facility] LABORATORY Comment: Supplemental ranges: <140 mg/dL before meals <180 mg/dL all other times of the day Specimen Anatomical Collection Method Collection Time Receive d Time (Source) Location / / Volume Laterality Blood specimen 07/07/2017 12:07 7 (specimen) AM EST 12:07 AM EST Daphne Shahid MD POINT OF CARE TEST ORDERABLE S Performing Organization Address City/State/[place] [address] (ABNORMAL) APTT (07/07/2017 12:00 AM EST) athologist Signature PTT 103 (H) 25 - 35 sec [facility] LABORATORY Comment: The recommended therapeutic range for fu ll dose, unfractionated heparin at [facility] is 80 ? 114 [...] Address City/State/ZIP Code Phon e Number [address] POCT Glucose (07/06/2017 9:55 PM EST) athologist Signature POC Glucose 109 65 - 199 [place] mg/dL [facility] LABORATORY Comment: Supplemental ranges: [...] [facility]/ZIP Code Phon e Number [address] POCT Glucose (07/06/2017 9:04 PM EST) athologist Signature POC Glucose 120 65 - 199 [place] mg/dL [facility] LABORATORY Comment: Supplemental ranges: [...] [facility]/ZIP Code Phon e Number [address] POCT Glucose (07/06/2017 7:45 PM EST) athologist Signature POC Glucose 158 65 - 199 [place] mg/dL [facility] LABORATORY Comment: Supplemental ranges: [...] [facility]/ZIP Code Phon [place] [address] Potassium (07/06/2017 7:40 PM EST) athologist Signature Potassium 3.9 3.5 - 5.0 [facility] mmol/L [facility] LABORATORY Comment: Please [...] [facility]/ZIP Code Phon e Number [address] (ABNORMAL) Cardiac Enzymes (LEB/CGP) (07/06/2017 7:40 PM EST) athologist Signature Troponin-T 2.27 (H) 0.00 - [facility] 0.00 ng/mL [facility] LABORATORY Comment: [...] for cTnT testing should be obtai pedro lius serially upon first assessment and again 3 to 6 hours later. If the clinica l suspicion is high and previous samples have been negative an additional sample may be indicated. Reference: Third Johnson Definition of Myocardial Infarction. Journal of the [place] [employer] 2012;60:1581-98 CK, Total 93 [...] [facility]/ZIP Code Phon e [place] [address] (ABNORMAL) POCT Glucose (07/06/2017 7:13 PM EST) P athologist Signature POC Glucose 200 (H) 65 - 199 [facility] mg/dL [facility] LABORATORY Comment: Supplemental [...] [place] [address] (ABNORMAL) APTT (07/06/2017 6:15 PM EST) P athologist Signature PTT 94 (H) 25 - 35 sec [facility] LABORATORY Comment: The recommended therapeutic range for fu ll dose, unfractionated heparin at [facility] is 80 ? 114 [...] [facility]/ZIP Code Phon [place] [address] (ABNORMAL) POCT Glucose (07/06/2017 6:03 PM EST) athologist Signature POC Glucose 236 (H) 65 - 199 [place] mg/dL [facility] LABORATORY Comment: Supplemental ranges: [...] [facility]/ZIP Code Phon [place] [address] (ABNORMAL) POCT Glucose (07/06/2017 5:01 PM EST) athologist Signature POC Glucose 235 (H) 65 - 199 [place] mg/dL [facility] LABORATORY Comment: Supplemental ranges: [...] [facility]/ZIP Code Phon [place] [address] (ABNORMAL) POCT Glucose (07/06/2017 4:06 PM EST) athologist Signature POC Glucose 202 (H) 65 - 199 [place] mg/dL [facility] LABORATORY Comment: Supplemental ranges: [...] [place] [address] POCT Glucose (07/06/2017 2:59 PM EST) athologist Signature POC Glucose 178 65 - [address] [facility] Comment: Supplemental [...] [place] [address] (ABNORMAL) Cardiac Enzymes (LEB/CGP) (07/06/2017 2:10 PM EST) athologist Signature Troponin-T 2.34 (H) 0.00 - [facility] 0.00 ng/mL [facility] LABORATORY Comment: [...] additional sample may be indicated. Reference: Third Johnson Definition of Myocardial Infarction. Journal of the [place] [employer] 2012;60:1581-98 CK, Total 101 0 - 200 unit/L [facility] LABORATORY Specimen Anatomical Collection Method Collection Time Receive d Time (Source) Location / / Volume Laterality Blood specimen 07/06/2017 2:10 PM 017 2:26 (specimen) EST PM EST Resulting Agency Comment Spec In Lab Daphne Shahid MD CHEMISTRY ORDERABLES Performing Organization Address City/[facility]/ZIP [facility] Phon e Number [address] POCT Glucose (07/06/2017 2:08 PM EST) P athologist Signature POC Glucose 192 65 - 199 [facility] mg/dL [facility] LABORATORY Comment: Supplemental [...] [facility]/ZIP Code Phon [place] [address] POCT Glucose (07/06/2017 1:04 PM EST) P athologist Signature POC Glucose 162 65 - [address] [facility] LABOR[facility]ORY Comment: Supplemental ranges: <140 mg/dL before meals <180 mg/dL all other times of the day Specimen Anatomical Collection Method Collection Time Receive d Time (Source) Location / / Volume Laterality Blood specimen 07/06/2017 1:04 PM 017 1:04 (specimen) EST PM EST Daphne Shahid MD POINT OF CARE TEST ORDERABLE S Performing Organization Address City/State/[place] [address] [facility] [address] POCT Glucose (07/06/2017 12:05 PM EST) P athologist Signature POC Glucose 196 65 - 199 [facility] mg/dL [facility] LABORATORY Comment: Supplemental [...] [facility]/ZIP Code Phon e Number [address] EKG 12 Lead (07/06/2017 12:00 PM EST) Component Value Ref Range Test Analysis Performed Pathologis t Method Time At Signature Ventricular rate 91 BPM MUSE SYSTEM Atrial Rate 91 BPM MUSE SYSTEM P-R Interval 140 ms MUSE SYSTEM QRS Duration 94 ms MUSE SYSTEM Q-T Interval 394 ms MUSE SYSTEM QTC Calculated 484 ms MUSE SYSTEM (Bezet) Calculated P [place] 36 degrees MUSE SYSTEM Calculated R [place] -19 degrees MUSE SYSTEM Calculated T [place] 104 degrees MUSE SYSTEM INTERPRETATION Normal sinus rhythm MUSE SYSTEM 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) ST & T wave abnormality, consider lateral ischemia Abnormal ECG When compared with ECG of 05-JUL-2017 20:39, No significant change was found Confirmed by MD Luci, Taurus Braun ([id number]) on 07/06/2017 5:07:33 PM Specimen Anatomical Collection Method Collection Time Receive d Time (Source) Location / / Volume Laterality 07/06/2017 12:00 07/06/2017 5:07 PM EST PM EST Daphne Shahid MD ECG ORDERABLES Performing Organization Address City/[facility]/ZIP Code Phon e [place] [address] Antibody screen (07/06/2017 12:00 PM EST) Patholo gist Method Time Signature Ab Screen Negative [facility] LABORATORY Expires at 07/09/2017 [facility] [id number] on: [facility] LABORATORY Specimen Anatomical Collection Method Collection Time Receive d Time (Source) Location / / Volume Laterality Blood specimen 07/06/2017 12:00 7 (specimen) PM EST 12:24 PM EST Resulting Agency Comment Spec In Lab Daphne Shahid MD BLOOD BANK ORDERABLES Performing Organization Address City/[facility]/ZIP Code Phon e Number [address] ABO/Rh Typing (07/06/2017 12:00 [...] [facility]/ZIP Code Phon [place] [address] Prothrombin Time (07/06/2017 11:24 AM EST) P athologist Signature PT 13.3 11.8 - 14.0 [facility] LABORATORY INR 1.0 0.9 - [...] [facility]/ZIP Code Phon e Number [address] (ABNORMAL) APTT (07/06/2017 11:24 AM EST) P athologist Signature PTT 52 (H) 25 - 35 sec [facility] LABORATORY Comment: The recommended therapeutic range for fu ll dose, unfractionated heparin at [facility] is 80 ? 114 [...] [facility]/ZIP Code Phon [place] [address] POCT Glucose (07/06/2017 11:02 AM EST) athologist Signature POC Glucose 187 65 - 199 [facility] mg/dL [facility] LABORATORY Comment: Supplemental [...] [facility]/ZIP Code Phon e [place] [address] POCT Glucose (07/06/2017 10:18 AM EST) P athologist Signature POC Glucose 193 65 - 199 [place] mg/dL [facility] LABORATORY Comment: Supplemental ranges: [...] [place] [address] POCT Glucose (07/06/2017 9:25 AM EST) athologist Jibe POC Glucose 182 65 - 199 [facility] mg/dL [facility] LABOR[facility]ORY Comment: Supplemental ranges: [...] [place] [address] (ABNORMAL) Cardiac Enzymes (LEB/CGP) (07/06/2017 8:10 AM EST) [facility] Jibe Troponin-T 2.26 (H) 0.00 - [facility] 0.[facility] ng/mL [facility] LABORATORY Comment: The [...] additional sample may be indicated. Reference: Third Johnson Definition of Myocardial Infarction. Journal of the [place] [employer] 2012;60:1581-98 CK, Total 124 [...] [facility]/ZIP Code Phon [place] [address] Magnesium (07/06/2017 8:10 AM EST) P athologist Signature Magnesium 0.84 0.69 - 1.07 [facility] mmol/L [facility] LABORATORY Specimen Anatomical Collection Method Collection Time Receive d Time (Source) Location / / Volume Laterality Blood specimen 07/06/2017 8:10 AM 017 8:21 (specimen) EST AM EST Resulting Agency Comment Spec In Lab Daphne Shahid MD CHEMISTRY ORDERABLES Performing Organization Address City/[facility]/ZIP [facility] Phon e [place] [address] (ABNORMAL) Basic Metabolic Panel (non-fasting) (07/06/2017 8:10 AM EST) P athologist Signature Glucose Lvl 199 65 - 199 [facility] mg/dL [facility] LABORATORY Comment: Diabetes: [...] [facility] Estimated GFR >60 >=60 [facility] LABORATORY Comment: The reported eGFR should be multiplied b y 1.2 for patients. The MDRD is not an appropriate measure o f renal function for patients with body mass extremes or in patients with acute kidney failure. http://Canines/DHnkdep http://Canines/DHnkf Specimen Anatomical Collection Method Collection Time Receive d Time (Source) Location / / Volume Laterality Blood specimen 07/06/2017 8:10 AM 017 8:21 (specimen) EST AM EST Resulting Agency Comment Spec In Lab Daphne Shahid MD CHEMISTRY ORDERABLES Performing Organization Address City/[facility]/[place] [address] POCT Glucose (07/06/2017 7:34 AM EST) P athologist Signature POC Glucose 198 65 - 199 [facility] mg/dL [facility] LABORATORY Comment: Supplemental [...] [facility]/[place] [address] POCT Glucose (07/06/2017 7:03 AM EST) P athologist Signature POC Glucose 181 65 - 199 [place] mg/dL [facility] LABORATORY Comment: Supplemental ranges: <140 mg/dL before meals <180 mg/dL all other times of the day Specimen Anatomical Collection Method Collection Time Receive d Time (Source) Location / / Volume Laterality Blood specimen 07/06/2017 7:03 AM 017 7:03 (specimen) EST AM EST Daphne Shahid MD POINT OF CARE TEST ORDERABLE S Performing Organization Address City/State/ZIP Code Phon e Number [facility] [address] XR Chest PA or [...] POC Glucose 172 65 - 199 [facility] mg/dL [facility] LAB[facility] Comment: Supplemental ranges: [...] e [place] [address] POCT Glucose (07/06/2017 5:08 AM EST) athologist Signature POC Glucose 154 65 - [address] [facility] Comment: Supplemental [...] [place] [address] POCT Glucose (07/06/2017 4:05 AM EST) athologist Signature POC Glucose 142 65 - [address] [facility]dL [facility] Comment: Supplemental [...] Address City/State/ZIP Code Phon e Number [address] POCT Glucose (07/06/2017 3:00 AM EST) athologist Signature POC Glucose 116 65 - 199 [facility] mg/dL [facility] LABORATORY Comment: Supplemental [...] [facility]/ZIP Code Phon e Number [address] Potassium (07/06/2017 2:20 AM EST) athologist [facility] Potassium 3.9 3.5 - 5.0 [facility] mmol/L [facility] LABORATORY Comment: Please [...] [facility]/ZIP Code Phon e Number [address] Differential, Automated (07/06/2017 2:20 AM EST) athologist Signature Neutrophils % 72.9 % [facility] LABORATORY Neutr Abs (ANC) 5.53 1.70 - [facility] 6.10 [facility] x10(3)/[facility] LABORATORY Lymphocytes % 16.4 % [facility] LABORATORY Lymphocytes Abs 1.2 0.9 - 3.2 [facility] x10(3)/[facility] LABORATORY Monocytes % 9.4 % [facility] LABORATORY Monocyte Abs 0.7 0.3 - 0.9 [facility] x10(3)/[facility] LABORATORY Eosinophils % 0.5 % [facility] LABORATORY Eosinophils Abs 0.0 0.0 - 0.4 [facility] x10(3)/[facility] LABORATORY Basophils % 0.4 % [facility] LABORATORY Basophils Abs 0.0 0.0 - 0.1 [facility] x10(3)/[facility] LABORATORY Immature Gran % 0.40 [...] [facility] LABORATORY Specimen Anatomical Collection Method Collection Time Receive d Time (Source) Location / / Volume Laterality Blood specimen 07/06/2017 2:20 AM 017 2:33 (specimen) EST AM EST Resulting Agency Comment Spec In Lab Daphen Shahid MD HEMATOLOGY ORDERABLES Performing Organization Address City/State/[place] [address] (ABNORMAL) Hemogram (07/06/2017 2:20 AM EST) Analysis Performed At Patho logist Time Signature WBC 7.6 4.0 - 9.5 [facility] x10(3)/[facility] LABORATORY RBC 4.52 (L) 4.58 - [facility] 5.54 [facility] x10(6)/[facility] LABORATORY Hemoglobin 13.4 (L) 13.7 - [facility] 16.5 gm/dL [facility] LABORATORY Hematocrit 39.7 (L) 40.5 [facility] 48.5 % [facility] LABORATORY MCV 87.8 82.[address] [facility] 93.1 [facility] LABORATORY MCH 29.6 27.5 - [place] [facility] 32.1 pg [facility] LABORATORY MCHC 33.8 32.0 - [place] 35.7 gm/dL [facility] LABORATORY Platelets 189 145 - 357 [facility] x10(3)/[facility] LABORATORY RDWSD 45.6 (H) 36.0 - [facility] 45.0 [facility] LABORATORY RDWCV 14.3 (H) 11.4 - [facility] 13.8 % [facility] LABORATORY MPV 9.1 7.6 - 12.9 [facility] LABORATORY nRBC % Auto 0.0 % [facility] LABORATORY nRBC Abs Auto 0.000 0.000 - [facility] 0.000 [facility] x10(3)/[facility] LABORATORY Specimen Anatomical Collection Method Collection Time Receive d Time (Source) Location / / Volume Laterality Blood specimen 07/06/2017 2:20 AM 017 2:33 (specimen) EST AM EST Resulting Agency Comment Spec In Lab Daphne Shahid MD HEMATOLOGY ORDERABLES Performing Organization Address City/State/[place] [address] (ABNORMAL) APTT (07/06/2017 2:20 AM EST) P athologist Signature PTT 52 (H) 25 - 35 sec [facility] LABORATORY Comment: The recommended therapeutic range for fu ll dose, unfractionated heparin at [facility] is 80 ? 114 [...] Address City/State/ZIP Code Phon e Number [address] POCT Glucose (07/06/2017 2:20 AM EST) athologist Signature POC Glucose 115 65 - 199 [facility] mg/dL [facility] LAB[facility]ORY Comment: Supplemental ranges: [...] [facility]/ZIP Code Phon [place] [address] (ABNORMAL) Cardiac Enzymes (LEB/CGP) (07/06/2017 2:20 AM EST) athologist Signature Troponin-T 2.13 (H) 0.00 - [place] [facility] 0.00 ng/mL [facility] LABORATORY Comment: The [...] additional sample may be indicated. Reference: Third Johnson Definition of Myocardial Infarction. Journal of the [place] [employer] 2012;60:1581-98 CK, Total 129 0 - 200 unit/L [facility] LABORATORY Specimen Anatomical Collection Method Collection Time Receive d Time (Source) Location / / Volume Laterality Blood specimen 07/06/2017 2:20 AM 017 2:33 (specimen) EST AM EST Resulting Agency Comment Spec In Lab Daphne Shahid MD CHEMISTRY ORDERABLES Performing Organization Address City/State/[place] [address] (ABNORMAL) Hemoglobin A1c (07/06/2017 [...] with hemoglobinopathies. Additional resources are available on [facility] website. Macario HAMMOND, Ruthann J, Deysi R, et al. ??Tr anslating the A1C assay into estimated average glucose values. ??Diabetes Care 2008:31(8):0063-7608. Specimen Anatomical Collection Method Collection Time Receive d Time (Source) Location / / Volume Laterality Blood specimen 07/06/2017 2:20 AM 017 2:34 (specimen) EST AM EST Resulting Agency Comment Spec In Lab Daphne Shahid MD CHEMISTRY ORDERABLES Performing Organization Address City/State/[place] [address] (ABNORMAL) Lipid Panel (07/06/2017 2:20 AM EST) [facility] Method Time Signature Chol, Total 150 <=239 [place] mg/dL [facility] LABORATORY Triglycerides 129 <=199 [facility] mg/dL [facility] HDL 32 (L) >=40 [facility] mg/dL [facility] LDL Cholesterol 92 <=190 [facility] mg/dL [facility]OR[facility] Chol/HDL Ratio 4.7 ratio [facility] LABORATORY Lipid See Note [place] Interpretation [facility] Comment: Lipid management should be guided by a p atient? s ASCVD risk, goals and preferences. ACC/AHA Guidelines recommend high intens ity statin if clinical ASCVD or LDL greater than or equal to 190 mg/dL. http://Spin Ink LTDurl.com/LKS-NHZ-Qvavjcpwy Adults aged 40-75 with LDL 70-189 mg/dL should have their 10 year ASCVD risk estimated with the ACC/AHA ASCVD risk es timator http://tools.acc.org/FUAZP-Zwec-Ejykyaoh r/ Statin should be discussed if risk [...] Address City/State/ZIP Code Phon e Number [address] POCT Glucose (07/06/2017 1:09 AM EST) athologist Signature POC Glucose 121 65 - 199 [facility] mg/dL [facility] Comment: Supplemental ranges: [...] [facility]/ZIP Code Phon [place] [address] POCT Glucose (07/06/2017 12:06 AM EST) athologist Signature POC Glucose 147 65 - 199 [facility] mg/dL [facility] Comment: Supplemental ranges: [...] [place] [address] (ABNORMAL) POCT Glucose (07/05/2017 10:56 PM EST) athologist Signature POC Glucose 200 (H) 65 - 199 [facility] mg/dL [facility] Comment: Supplemental ranges: [...] [place] [address] (ABNORMAL) POCT Glucose (07/05/2017 10:05 PM EST) athologist Signature POC Glucose 225 (H) 65 - 199 [facility] mg/dL [facility] Comment: Supplemental ranges: [...] [place] [address] (ABNORMAL) POCT Glucose (07/05/2017 9:02 PM EST) athologist Signature POC Glucose 301 (H) 65 - 199 [place] mg/dL [facility] Comment: Supplemental ranges: [...] [place] [address] XR Chest PA or [...] 474 ms MUSE SYSTEM (Bezet) Calculated P [place] 50 degrees MUSE SYSTEM Calculated R [place] -28 degrees MUSE SYSTEM Calculated T [place] 90 degrees MUSE SYSTEM INTERPRETATION Sinus tachycardia [...] (ABNORMAL) Differential, Automated (07/05/2017 8:20 PM EST) [facility] gist Method Time Signature Neutrophils % 88.4 % [facility]OR[facility] Neutr Abs (ANC) 9.08 (H) 1.70 - [facility] 6.10 [facility] x10(3)/[facility] LABORATORY Lymphocytes % 7.0 % [facility] LABORATORY Lymphocytes Abs 0.7 (L) 0.9 - 3.2 [facility] x10(3)/[facility] LABORATORY Monocytes % 3.7 % [facility] LABORAT[facility] Monocyte Abs 0.4 0.3 - 0.9 [facility] x10(3)/[facility] LABORATORY Eosinophils % 0.1 % [facility] Eosinophils Abs 0.0 0.0 - 0.4 [facility] x10(3)/[facility] LABORATORY Basophils % 0.2 % [facility] Basophils Abs 0.0 0.0 - 0.1 [facility] x10(3)/[facility] LABORATORY Immature Gran % 0.60 % [facility] [...] Organization Address City/State/[place] [address] (ABNORMAL) Hemogram (07/05/2017 8:20 PM EST) Analysis Performed At Patho logist Time Signature WBC 10.3 (H) 4.0 - 9.5 [facility] LABORATORY RBC 4.64 4.58 - [place] 5.54 [facility] x10(6)/[facility] LABORATORY Hemoglobin 14.1 13.7 [facility] 16.5 gm/dL [facility] Hematocrit 40.8 40[address] [facility] 48.5 % [facility] MCV 87.9 82.9 - [facility] SU 93.1 [facility] LABORATORY MCH 30.4 27.5 - [place] SU 32.1 pg [facility] MCHC 34.6 32.0 - [facility] SU 35.7 gm/dL [facility] Platelets 204 145 - 357 [facility] x10(3)/[facility] LABORATORY RDWSD 46.1 (H) 36.0 - [facility] 45.0 [facility] LABORATORY RDWCV 14.5 (H) 11.4 - [facility] SU 13.8 % [facility]ORAT[facility] MPV 9.7 7.6 - 12.9 [facility] nRBC % Auto 0.0 % [facility] LABOR[facility] nRBC Abs Auto 0.000 0.000 - [facility] SU 0.000 [facility] x10(3)/[facility] LABORATORY Specimen Anatomical Collection Method Collection Time Receive d Time (Source) Location / / Volume Laterality Blood specimen 07/05/2017 8:20 PM 017 8:27 (specimen) EST PM EST Resulting Agency Comment Spec In Lab Daphne Shahid MD HEMATOLOGY ORDERABLES Performing Organization Address City/State/ZIP Code Phon e Number [place] [address] APTT (07/05/2017 8:20 PM EST) athologist Signature PTT 32 25 - 35 sec [facility] Comment: The recommended therapeutic range for fu ll dose, unfractionated heparin at [facility] is 80 ? 114 [...] [place] [address] (ABNORMAL) Cardiac Enzymes (LEB/CGP) (07/05/2017 8:20 PM EST) athologist Signature Troponin-T 2.11 (H) 0.00 - [facility] 0.00 ng/mL [facility] Comment: [...] additional sample may be indicated. Reference: Third Johnson Definition of Myocardial Infarction. Journal of the [place] [employer] 2012;60:1581-98 CK, Total 149 [...] [facility]/ZIP Code Phon e Number [address] (ABNORMAL) Magnesium (07/05/2017 8:20 PM EST) P athologist Signature Magnesium 0.68 (L) 0.69 - 1.07 [facility] mmol/L [facility] LABORATORY Specimen Anatomical Collection Method Collection Time Receive d Time (Source) Location / / Volume Laterality Blood specimen 07/05/2017 8:20 PM 017 8:27 (specimen) EST PM EST Resulting Agency Comment Spec In Lab Daphne Shahid MD CHEMISTRY ORDERABLES Performing Organization Address City/[facility]/ZIP Code Phon [place] [address] (ABNORMAL) Basic Metabolic Panel (non-fasting) (07/05/2017 8:20 PM EST) P athologist Signature Glucose Lvl 321 (H) 65 - 199 [facility] mg/dL [facility] Comment: Diabetes: [...] [facility] Estimated GFR >60 >=60 [facility] LABORATORY Comment: The reported eGFR should be multiplied b y 1.2 for patients. The MDRD is not an appropriate measure o f renal function for patients with body mass extremes or in patients with acute kidney failure. http://Canines/DHnkdep http://Canines/DHMCnkf Specimen Anatomical Collection Method Collection Time Receive d Time (Source) Location / / Volume Laterality Blood specimen 07/05/2017 8:20 PM 017 8:27 (specimen) EST PM EST Resulting Agency Comment Spec In Lab Daphne Shahid MD CHEMISTRY ORDERABLES Performing Organization Address City/State/ZIP Code Phon [place] [address] (ABNORMAL) POCT Glucose (07/05/2017 7:32 PM EST) P athologist Signature POC Glucose 296 (H) 65 - 199 [facility] mg/dL [facility] Comment: Supplemental [...] [place] [address] CARDIAC CATHETERIZATION (07/05/2017 6:47 PM EST) Anatomical Region Laterality Modality Other Specimen (Source) Anatomical Location Collection Method / Collectio n Time Received Time / Laterality Volume Narrative 07/05/2017 7:27 PM EST ?[facility] ? Cardiac Cathete rization/Intervention Report ? Patient Name: Gregory Hoang ? Procedure Date: 07/05/2017 ? A #: [id number] ? Primary Physician: Clarisa, Jet T ? Case #: [id number] ? File Name: [id number] ? Catheterization Order Number: [id number] ? [facility] ? Final Report [place], [place] ? Patient Name: ? Gregory Natalya ?ID#: ?[id number] ? : ?1945 ? Procedure Date: ? [...] presented with: non -STEMI (w/i 7 days). [place] ?Cardiovascular Society angina c lass was IV. [...] angio graphy and IABP insertion in laboratory phlebotomist. ? Jet Mckenna M.D. ? Electronically Signed by: Jet bunch M.D. ? Report Finalized: 07/05/2017 ??19:23 ? Report Last Ammended: 10/26/2017 ??10:29 ? Procedure Note Jet Mckenna MD - 10/26/2017Formatt ing of this note might be different from the original. [facility] Cardiac Catheterization/Intervention Re port Patient Name: Gregory Hoang Procedure Date: 07/05/2017 A #: [id number] Primary Physician: Jet Mckenna Case #: [id number] File Name: [id number] Catheterization Order Number: [id number] [facility] Final Report [place], [place] Patient Name: Gregory Hoang ID#: [id number] : 1945 Procedure Date: July 05, [...] presented with: non-STEMI ( w/i 7 days). [place] [employer] angina class was IV. No [...] angiograph y and IABP insertion in laboratory phlebotomist. Jet Mckenna M.D. Electronically Signed by: eJt bunch M.D. Report Finalized: 07/05/2017 19:23 Report [...] Mccollum ? (Age): 1945(72y) Med Rec#: ? [id number] ?Sex: ?M ? Site Loc: ? [facility] ?Ht / Wt: ??173(cm)/86(kg) Pt. Loc: ?CCU ? BSA: ?2 Study Date: ?? 07/05/2017 ?Pt. Type: Inpatient Tape: ? Referring: Daphne Shahid ([id number]) Referring: MANDA ALCANTAR Reading: Blade Preston ([id number]) Table Operator: Dayami Paula BA, [facility] [...] E-wave Vmax ?0.8 ?m/sec ? MV deceleration [id number] ?msec ? MV A-wave Vmax ?0.8 ?m/sec [...] ? Mid-Inferior ?Akinetic ? Mid-Inferoseptal ?Hypokinetic ? [place]-Septal ? Akinetic ? [place]-Anterior ? Hypokinetic ? [place]-Lateral ?Hypokinetic ? [place]-Inferior ? Akinetic ? [place]-Tip ?Akinetic ? This report has been electronically sign ed by: _ Blade Preston MD ? 07/06/2017 08 :53:15 Images reviewed and interpretation [facility] Cardiac Ultrasound Laboratory Procedure Note Blade Preston MD - 07/06/2017Formatt ing of this note might be different from the original. Procedure: Transthoracic Echocardiogram Patient: NATALYA MCBRIDE(Age): [birth year]72y) Med Rec#: [id number] Sex: M Site Loc: [facility] Ht / Wt: 173(cm)/86(kg) Pt. Loc: CCU BSA: 2 Study Date: 07/05/2017 Pt. Type: Inpatie nt Tape: Referring: Daphne Shahid ([id number]) Referring: MANDA ALCANTAR Reading: Blade Prseton ([id number]) Table Operator: Dayami Paula BA, [facility] [...] MV E-wave Vmax 0.8 m/sec MV deceleration [id number] msec MV A-wave Vmax 0.8 m/sec MV [...] Hypokinetic Mid-Posterolateral Hypokinetic Mid-Inferior Akinetic Mid-Inferoseptal Hypokinetic [place]-Septal Akinetic [place]-Anterior Hypokinetic [place]-Lateral Hypokinetic [place]-Inferior Akinetic [place]-Tip Akinetic This report has been electronically sign ed by: _ Blade Preston MD 07/06/2017 08:53:15 Images reviewed and interpretation ver ied [facility] Cardiac Ultrasound Laboratory Daphne Shahid MD ECHO ORDERABLES Differential, Automated (07/05/2017 4:55 PM EST) athologist Signature Neutrophils % 77.0 % [facility]OR[facility] Neutr Abs (ANC) 5.26 1.70 - [facility] 6.10 [facility] x10(3)/[facility] LABORATORY Lymphocytes % 13.3 % [facility] LABORATORY Lymphocytes Abs 0.9 0.9 - 3.2 [facility] x10(3)/[facility] LABORATORY Monocytes % 8.2 % [facility] LABORATORY Monocyte Abs 0.6 0.3 - 0.9 [facility] x10(3)/[facility] LABORATORY Eosinophils % 0.7 % [facility] LABORATORY Eosinophils Abs 0.0 0.0 - 0.4 [facility] x10(3)/[facility] LABORATORY Basophils % 0.4 % [facility] LABORATORY Basophils Abs 0.0 0.0 - 0.1 [facility] x10(3)/[facility] LABORATORY Immature Gran % 0.40 [...] [facility] MAR Y [facility] LABORATORY Specimen Anatomical Collection Method Collection Time Receive d Time (Source) Location / / Volume Laterality Blood specimen 07/05/2017 4:55 PM 017 5:24 (specimen) EST PM EST Resulting Agency Comment Spec In Lab Daphne Shahid MD HEMATOLOGY ORDERABLES Performing Organization Address City/State/[place] [address] (ABNORMAL) Hemogram (07/05/2017 4:55 PM EST) Analysis Performed At Patho logist Time Signature WBC 6.8 4.0 - 9.5 [facility] x10(3)/[facility] LABORATORY RBC 4.67 4.58 - [facility] 5.54 [facility] x10(6)/[facility] LABORATORY Hemoglobin 14.0 13.7 - [place] [facility] 16.5 gm/dL [facility] Hematocrit 41.0 40.5 - [place] [facility] 48.5 % [facility] MCV 87.8 82.[address] [facility]1 [facility] LABORATORY MCH 30.0 27.5 - [place] [facility] 32.1 pg [facility]ORAT[facility] MCHC 34.1 32.0 - [place] [facility] 35.7 gm/dL [facility]OR[facility] Platelets 197 145 - 357 [facility] x10(3)/[facility] LABORATORY RDWSD 46.4 (H) 36.0 - [place] [facility] 45.0 [facility] LABORATORY RDWCV 14.5 (H) 11.4 - [place] SU 13.8 % [facility] LABORATORY MPV 9.7 7.6 - 12.9 [facility] LABORATORY nRBC % Auto 0.0 % [facility] LABORATORY nRBC Abs Auto 0.000 0.000 - [place] SU 0.000 [facility] x10(3)/[facility] LABORATORY Specimen Anatomical Collection Method Collection Time Receive d Time (Source) Location / / Volume Laterality Blood specimen 07/05/2017 4:55 PM 017 5:24 (specimen) EST PM EST Resulting Agency Comment Spec In Lab Daphne Shahid MD HEMATOLOGY ORDERABLES Performing Organization Address City/State/[place] [address] (ABNORMAL) Cardiac Enzymes (LEB/CGP) (07/05/2017 4:55 PM EST) P athologist Signature Troponin-T 1.69 (H) 0.00 - [place] [facility] 0.00 ng/mL [facility] Comment: The [...] additional sample may be indicated. Reference: Third Johnson Definition of Myocardial Infarction. Journal of the [place] [employer] 2012;60:1581-98 CK, Total 191 0 - 200 unit/L [facility] LABORATORY Specimen Anatomical Collection Method Collection Time Receive d Time (Source) Location / / Volume Laterality Blood specimen 07/05/2017 4:55 PM 017 5:56 (specimen) EST PM EST Resulting Agency Comment Spec In Lab Daphne Shahid MD CHEMISTRY ORDERABLES Performing Organization Address City/State/ZIP Code Phon e Number [address] (ABNORMAL) pro-Brain Natriuretic Peptide (07/05/2017 4:55 PM EST) P athologist Signature ProBNP 1,598 (H) <=125 [facility] pg/mL [facility] LABORAT[facility] Specimen Anatomical Collection Method Collection Time Receive d Time (Source) Location / / Volume Laterality Blood specimen 07/05/2017 4:55 PM 017 5:24 (specimen) EST PM EST Resulting Agency Comment Spec In Lab Daphne Shahid MD CHEMISTRY ORDERABLES Performing Organization Address City/State/ZIP Code Phon e Number [address] Magnesium (07/05/2017 4:55 PM EST) P athologist Signature Magnesium 0.78 0.69 - 1.07 [facility] mmol/L [facility] LABORATORY Specimen Anatomical Collection Method Collection Time Receive d Time (Source) Location / / Volume Laterality Blood specimen 07/05/2017 4:55 PM 017 5:24 (specimen) EST PM EST Resulting Agency Comment Spec In Lab Daphne Shahid MD CHEMISTRY ORDERABLES Performing Organization Address City/State/[place] [address] (ABNORMAL) Basic Metabolic Panel (non-fasting) (07/05/2017 4:55 PM EST) P athologist Signature Glucose Lvl 230 (H) 65 - 199 [facility] mg/dL [facility] Comment: Diabetes: [...] [facility] Estimated GFR >60 >=60 [facility] LABORATORY Comment: The reported eGFR should be multiplied b y 1.2 for patients. The MDRD is not an appropriate measure o f renal function for patients with body mass extremes or in patients with acute kidney failure. http://MEDOVENT.Damballa/DHnkdep http://Canines/DHMCnkf Specimen Anatomical Collection Method Collection Time Receive d Time (Source) Location / / Volume Laterality Blood specimen 07/05/2017 4:55 PM 017 5:24 (specimen) EST PM EST Resulting Agency Comment Spec In Lab Daphne Shahid MD CHEMISTRY ORDERABLES Performing Organization Address City/[facility]/ZIP Code Phon [place] [address] (ABNORMAL) APTT (07/05/2017 4:55 PM EST) P athologist Signature PTT 41 (H) 25 - 35 sec [facility] LABORATORY Comment: The recommended therapeutic range for fu ll dose, unfractionated heparin at [facility] is 80 ? 114 [...] [facility]/ZIP Code Phon [place] [address] (ABNORMAL) POCT Glucose (07/05/2017 4:53 PM EST) athologist Signature POC Glucose 208 (H) 65 - 199 [facility] mg/dL [facility] Comment: Supplemental [...] [facility]/ZIP Code Phon [place] [address] EKG 12 Lead (07/05/2017 4:32 PM EST) Component Value Ref Range Test Analysis Performed Pathologis t Method Time At Signature Ventricular rate 97 BPM MUSE SYSTEM Atrial Rate 97 BPM MUSE SYSTEM P-R Interval 148 ms MUSE SYSTEM QRS Duration 96 ms MUSE SYSTEM Q-T Interval 364 ms MUSE SYSTEM QTC Calculated 462 ms MUSE SYSTEM (Bezet) Calculated P [place] 48 degrees MUSE SYSTEM Calculated R [place] -33 degrees MUSE SYSTEM Calculated T [place] 98 degrees MUSE SYSTEM INTERPRETATION Normal sinus [...] Coronary atherosclerosis of unspecified type of vessel, [place] or graft Cardiomyopathy, ischemic Other specified forms [...] post-op day 1 in the AM Give VT if unable to take PO, Routine Given [...] dose on Wed07/07/17 at 2100, Until Discontinued, [place] teeth, Routine Given 07/08/2017 10:06 PM EST [...] or norepinephrine is ineffective. Call pager # [phone] if initiated. Rate/Dose Change 07/08/2017 7:01 PM [...] if phenyleprine and/or vasopressin ineffective.Call pager # [phone] if initiated., Routine Rate/Dose Change 07/09/2017 1:24 [...] housekeeping manager for additional fluid orders: pager #[phone]. Rate/Dose Verify 07/08/2017 4:00 AM EST 100 [...] post-op day 1 in the AM Give VT if unable to take PO, Routine atorvastatin [...] post-op day 1 in the AM Give VT if unable to take PO
Routine Group [...]
Routine documented in this encounter Care Teams Center Mgr Relationship Specialty Start Date End Date Lovely Vicente MD PCP - General 04/16/[address] [place] [address] documented as of this encounter
--- OUTSIDE RECORDS SUMMARY | 2022-04-01 10:09 | XMS_ITS | Encounter Summary ---
:1945 Author Organization [facility] [place] [address] Care Team Providers Name Role Phone Lovely Vicente MD Primary Care Provider Encounter Details Date Type Department Care Team Description 07/08/2017 Orders Only [facility] [place] [address] Social History Tobacco Use Types Packs/Day [...] MD [facility] [place] [address] (Wo rk) 05/28/2022 Laboratory Appointment Lab 05/28/2022 Office Visit Cardiology Zulma Dolan MD [facility] [address] Liz Poole PA [facility] [place] [address] 06/10/2022 Office Visit Dermatology Laura Scherer MD [facility] ER [address] [place] [address] (Wo rk) documented as of this encounter [...] Mccollum ? (Age): 1945(72y) Med Rec#: ? [id number] ?Sex: ?M ? Site Loc: ? Ht / Wt: ??(cm)/ (kg) ? Pt. Loc: ? Study Date: ?? 07/07/2017 ?Pt. Type: Tape: ? Referring: Yuan Retana Reading: Yifan Perez MD ([id number]) Performing: Yifan Perez MD ([id number]) Diagnosis: SUMMARY: 1. Intraoperative AVELINO performed at the [facility] Dr[facility] Mike for the diagnosis [...] ? Mid-Inferior ?Hypokinetic ? Mid-Inferoseptal ?Hypokinetic ? [place]-Septal ? Hypokinetic ? [place]-Anterior ? Hypokinetic ? [place]-Lateral ?Hypokinetic ? [place]-Inferior ? Hypokinetic ? [place]-Tip ?Not Seen ? This report has been electronically sign ed by: _ Yifan Perez MD ? 07/08/2017 12 :25:18 Images reviewed and interpretation verif ied [facility] Cardiac Ultrasound Laboratory Procedure Note Yifan Perez MD - 07/08/2017Formatt ing of this note might be different from the original. Procedure: Transesophageal Echocardiogra m Patient: NATALYA MCBRIDE(Age): [birth year]72y) Med Rec#: [id number] Sex: M Site Loc: Ht / Wt: (cm)/ (kg) Pt. Loc: Study Date: 07/07/2017 Pt. Type: Tape: Referring: Yuan Retana Reading: Yifan Perez MD ([id number]) Performing: Yifan Perez MD ([id number]) Diagnosis: SUMMARY: 1. Intraoperative AVELINO performed at [...] Hypokinetic Mid-Posterolateral Hypokinetic Mid-Inferior Hypokinetic Mid-Inferoseptal Hypokinetic [place]-Septal Hypokinetic [place]-Anterior Hypokinetic [place]-Lateral Hypokinetic [place]-Inferior Hypokinetic [place]-Tip Not Seen This report has been electronically sign ed by: _ Yifan Perez MD 07/08/2017 12:25:18 Images reviewed and interpretation elvie hwang [facility] Cardiac Ultrasound Laboratory Unknown ECHO ORDERABLES documented in this encounter Visit Diagnoses Not on filedocumented in this encounter Care Teams Snuff Grinder Relationship Specialty Start Date End Date Lovely Vicente MD PCP - General 04/16/[address] [place] [address] documented as of this encounter
--- OUTSIDE RECORDS SUMMARY | 2022-04-01 10:10 | XMS_ITS | Encounter Summary ---
:1945 Author Organization [facility] Address [facility] [place] [address] Care Team Providers Name Role Phone Lovely Vicente MD Primary Care Provider Reason for Visit Auth/Cert Specialty Diagnoses / Procedures Referred By Contact Refer red To Contact Diagnoses STEMI (ST elevation myocardial infarction) NSTEMI STEMI Procedures CARDIAC CATHETERIZATION NAYE IPI Referral ID Status Reason Start Date Expiration Date Visits Requ ested Visits Authorized [id number] 1 1 Encounter Details Date Type Department Care Team Description 07/07/2017 Surgery Main Operating Room Yuan Webber, @ CABG, USING ARTERIAL Barbara Ocampo MD GRAFT;SINGLE ARTERIAL [facility] GRAFT (WRVU 33.75) [facility] [address] Sidd[place] [address] SURGERY [phone] [place], [place] [address] (Wo rk) Social History Tobacco [...] in this encounter Discharge Summaries Martha Teague, RECORDS MANAGEMENT CLERK - 07/14/2017 9:38 AM EST Inpatient - Discharge Summary Patient Name: Gregory Hoang Patient Age: 72 y.o. Birthdate: 1945 Language: Thai Race: White Ethnicity: Not nor Admit Date: 07/05/2017 Discharge Date: 07/14/2017 Attending Physician: Yaun Webber MD Follow-up Recommendations for Providers: Please continue routine management of cardiovascular risk factors including blood pressure, lipids, glucose, etc. Please note any changes to medications. Patient to follow-up with PCP, Lovely Vicente MD, in 1-2 weeks. An appointment has been made for you on 07/22/2017, , @ 1:20p Patient to follow-up with Partnership Marketing Manager/heart failure team in one week. An appointment will be made for you. You may call [phone] Patient to follow-up with Cardiac Surgery, Dr. Yuan Webber, in ~ 4 weeks with CXR, EKG. Inpatient Provider Contact Information: [facility] Section of Cardiac Surgery [facility] [place] [address] FAX [phone] Discharge Diagnoses (Hospital Problems) Primary Diagnoses: CAD [...] SETUP performed by Manny Mcknight MD at [facility] OR ??? PRO CABG, ARTERIAL, SINGLE N/A 07/07/2017 @CABG, USING ARTERIAL GRAFT;SINGLE ARTERIAL GRAFT (WRVU 33.75) performed by Yuan Webber MD at [facility] OR ??? PRO CABG, ARTERY-VEIN, TWO N/A 07/07/2017 @CABG, TWO VENOUS GRAFTS & ARTERIAL GRAFT (WRVU 7.93) performed by Yuan Webber MD at [facility] OR ??? PRO COLONOSCOPY, REMV LESN, SNARE 01/16/2014 COLONOSCOPY, POLYPECTOMY, REMOVAL LESION BY SNARE performed by Nohemi Jaimes MD at [facility] ENDOSCOPY ??? PRO ENDOSCOPY W/VIDEO-ASST VEIN HARVEST, CABG Right 07/07/2017 ENDOSCOPIC HARVEST VEIN(S) FOR CABG (WRVU 0.31) performed by Yuan Webber MD at [facility] OR ??? PRO THYROIDECTOMY 03/28/2013 THYROIDECTOMY, TOTAL OR COMPLETE performed by Manny Mcknight MD at [facility] OR Prior To Admission Medications Prescriptions Prior to Admission Medication Sig Dispense Refill Last Dose ??? levothyroxine (SYNTHROID) 175 mcg Tablet Take 1 tablet by mouth daily. 90 tablet 3 07/05/2017 [id number] ??? ascorbic acid, vitamin C, (VITAMIN C) [...] hospital and ruled infor non-ST segment elevation DC. This almost certainly represents the residual of [...] course, he was taken emergently to the dock or pier laborer for an ongoing STEMI. An IABP [...] not take or discontinue any prescription or thfx-tla-llmjkdv medications without asking your doctor or pharmacist [...] Yuan Webber and/or the Cardiac Surgery Physician Hospital Education Coordinator Team may be reached at . Weight: [...] Dr. Yuan Webber. You may use a [place] Track or treadmill but avoid any pulling [...] friends, go to a movie, go to scientology, etc. Heavy activities: No hunting, skiing, jogging, snow shoveling, snowmobiling, lawn mowing, swimming, golf or tennis until after your return appointment with the surgeon. Do not ride motorcycles, [employer]'s tractors or horses. Avoid the use of [...] should resume a low fat, low cholesterol, [place] Heart [employer] Diet/Diabetic diet. Driving: No driving [...] , @ 1:20p Patient to follow-up with Partnership Marketing Manager/heart failure team in one week. Appointment will be made for you. You may call [phone] Patient to follow-up with Cardiac Surgery, Dr. Yuan Webber, in ~ 4 weeks with CXR, EKG. Cardiac Rehabilitation: Gregory Hoang was seen today regarding participation in the outpatient Phase 2 Cardiac Rehabilitation at [facility]. The patient agrees to a referral to this program. The referral will be sent at discharge and the patient should be contacted by the Program within 1- 2 weeks from discharge. ?? Future Appointments and Orders Future Appointments Provider Department Dept Phone 09/07/2017 3:00 PM LAB, THREE L Lab 3L [facility] [phone] 09/07/2017 4:00 PM Luz Prescott MD Endocrinology at [facility] [phone] Future Orders Complete By Expires EKG 12 Lead [EKG1 Custom] 08/14/2017 02/13/2018 Process Instructions: Scheduling Instructions: Questions: Which DH location will this be performed?: [facility] Is a rhythm strip needed?: No If EKG Reason is Pre-op Evaluation, indicate diagnosis for surgery.: XR Chest PA & Lateral (Generic) [[id number] Custom] 08/14/2017 02/13/2018 Process Instructions: Scheduling Instructions: Questions: Where will study be performed?: [facility] Portable exam?: Reason for exam and clinical history: CABG x 3 Other pertinent information: Stat read required?: Date of injury if applicable: Requested Time: Referral to Cardiac Rehab [VRR524 Custom] As directed Process Instructions: If no progress note charted, please enter Clinical details in comments. Scheduling Instructions: Questions: My question or request is: s/p CABG. Cardiac rehab at [facility] Referral to Home Health - at DISCHARGE [QLA2158 CPT(R)] As directed Process Instructions: Scheduling Instructions: Comments: DOCUMENTATION FOR VNA SERVICES (INCLUDING THOSE PATIENTS WITH MEDICARE COVERAGE REQUIRING HOME VNA SERVICES AND/OR HOSPICE SERVICES) PATIENT'S LOCATION: Gregory Hoang [address] [place] [address] [place] [id number] (home) Telephone Information: Ct Mri Technologist's Name: self In discussion with the attending physician, it is certified that this patient is under their care and that they, or a Nurse Practitioner, or Physician Hospital Education Coordinator who is working directly with them, had [...] [facility] ([facility] [place] [facility]-is in [place] PHONE: [phone] FAX: [phone] RN orders: Cardiopulmonary assessment, incisional assessment, assess vital signs, assessment of rehab progress, medication management and effectiveness, home safety evaluation. Please draw INR if indicated and send result to:Dr Vicente [phone] PT ORDERS: Continue rehab for endurance, gait stability and strength with mobility and transfers. Home safety evaluation. Home exercise program if appropriate. Start of Care Date:24-48 hours after discharge SPECIAL INSTRUCTIONS: For any follow up questions, needs, or issues please call the Cardiac Surgery Office at [phone] FOR MEDICARE ONLY: (please delete this section [...] noted. Questions: Agency name and contact information: [facility] Patient location post discharge: home What services are requested: Registered Nurse Physical Therapy Start date: Responsible MD post discharge contact info: PCP Arrangements for VNA/home care: As above. VN RN OR PCP TO PLEASE REMOVE CHEST TUBE SUTURES ON OR AFTER 07/17/2017 Signed: Martha Teague APRN [facility] Section of Cardiac Surgery [facility] [place] [address] FAX [phone] Date: 07/14/2017 CC: MD Ivania Cr Betsy, [place] [address] [place] [phone] documented in this encounter Discharge Instructions Discharge [...] not take or discontinue any prescription or owsb-oky-vxhvupl medications without asking your doctor or pharmacist [...] Yuan Webber and/or the Cardiac Surgery Physician Hospital Education Coordinator Team may be reached at . ?? [...] Dr. Yuan Webber. You may use a [place] Track or treadmill but avoid any pulling [...] friends, go to a movie, go to scientology, etc. ?? Heavy activities: No hunting, skiing, jogging, snow shoveling, snowmobiling, lawn mowing, swimming, golf or tennis until after your return appointment with the surgeon. Do not ride motorcycles, [employer]'s tractors or horses. Avoid the use of [...] should resume a low fat, low cholesterol, [place] Heart [employer] Diet/Diabetic diet. ?? Driving: No [...] @ 1:20p ?? Patient to follow-up with Partnership Marketing Manager/heart failure team in one week. An appointment has been made for you, you can call [phone] ?? Patient to follow-up with Cardiac Surgery, Dr. Yuan Webber, in ~ 4 weeks with CXR, EKG. ? Cardiac Rehabilitation: Gregory Hoang??was seen today regarding participation in the outpatient Phase 2 Cardiac Rehabilitation at [facility]. ?? The patient agrees to a referral to this program.? The referral will be sent at discharge and the patient should be contacted by the Program within 1- 2 weeks from discharge. ? Future Appointments and Orders Future Appointments Provider Department Dept Phone ?? 09/07/2017 3:00 PM LAB, THREE L Lab 3L [facility] [phone] ?? 09/07/2017 4:00 PM Luz Prescott MD Endocrinology at [facility] [phone] Future Orders Complete By Expires ?? EKG 12 Lead [EKG1 Custom] 08/14/2017 02/13/2018 ?? Process Instructions: ? Scheduling Instructions: ? Questions: ? Which location will this be performed?: [facility] ?? Is a rhythm strip needed?: No ?? If EKG Reason is Pre-op Evaluation, indicate diagnosis for surgery.: ?? XR Chest PA & Lateral (Generic) [[id number] Custom] 08/14/2017 02/13/2018 ?? Process Instructions: ? Scheduling Instructions: ? Questions: ? Where will study be performed?: [facility] ?? Portable exam?: ?? Reason for exam and clinical history: CABG x 3 ?? Other pertinent information: ?? Stat read required?: ?? Date of injury if applicable: ?? Requested Time: ?? Referral to Cardiac Rehab [UMT995 Custom] As directed ? Process Instructions: ?? If no progress note charted, please enter Clinical details in comments. ?? Scheduling Instructions: ? Questions: ? My question or request is: s/p CABG. Cardiac rehab at [facility] ? Arrangements for VNA/home care: As [...] RN - 07/14/2017 2:34 PM EST The patient/metals sales representative has been provided a list of Home Health Agencies/DME vendors which serve their preferred geographic area. A letter describing our affiliations was reviewed with them and theywere educated about their right to choose where referrals are placed. Patient requests referral to [facility]. PHONE: [phone] FAX: [phone] Expected date of discharge: 07/14 Referral routed to the Lidder for matching with agency/vendor and to provide [...] [facility] Endocr[facility] Diabetes Management Pager [phone] minutes of this 35 minute visit was spent with the patient in counseling on diabetes and treatment plan, reviewing all glucose and insulin data as well as relevant laboratory results with the patient, and coordination of care on the inpatient unit including nursing and primary team. Zulma Power RN - 07/14/2017 10:30 AM EST The patient/metals sales representative has been provided a list of Home Health Agencies/DME vendors which serve their preferred geographic area. A letter describing our affiliations was reviewed with them and theywere educated about their right to choose where referrals are placed. Patient requests referral to : Yasmani [facility]ung[facility] ([facility] [place] [facility]-is in [place] PHONE: [phone] FAX: [phone]. Expected date of discharge: 07/14/17 Referral routed to the Lidder for matching with agency/vendor and to provide [...] #6 s/p CABG X3. FSBG 80 at [place], reports no symptoms but did drink some [...] [facility] End[facility] Diabetes Management Pager [phone] minutes of this 25 minute visit [...] of infiltration/extravasation Discussed plan of care with PRODUCTION QUALITY ANALYST and RN. Elevate exrtemity and apply intermittent Warm compresses. Name of MD contacted Dr. Shaw Brown 07/13/2017 @ 0610 Name of RN contacted Ale Rangel RN Name of Pharmacist if consulted NA Name of Plastics MD ( if consulted) NA (Mandatory photo for infiltrations/ extravasations scoring a stage 2 or greater, but recommended forstage 1)( include measuring tape and identifier in the photo) LEAD SYSTEMS DEVELOPER CARING FOR THIS PATIENT WILL CONTINUE TO [...] measuring tape and identifier in the photo) LEAD SYSTEMS DEVELOPER CARING FOR THIS PATIENT WILL CONTINUE TO [...] regard to both infiltrates addressed by this chief underwriter.All of MrMadiha Hoang's responses were entirely appropriate. Images of infiltrates attached here. L Martha Teague, RECORDS MANAGEMENT CLERK - 07/13/2017 8:01 AM EST Cardiac Surgery Progress Note: ID: [id number] 72 year old male POD#6 s/p CABGx3 [...] discharge. ?? I have met with the patient/metals sales representative to discuss discharge planning needs. I have provided the [facility], Office of Care Management letter from the Brick Setter Operator pertaining to rehab referrals. I have also provided a letter describing our affiliations within the [facility] and educated them about their right to choose where referrals are placed. ?? I reviewed the different levels of rehab including SNF, swing, acute and LTAC with the patient/metals sales representative. ?? The patient/metals sales representative has been provided a list of facilities within their preferred geographic area. ?? I have requested that the patient/metals sales representative provide at least three choices for referral. ?? The patient/metals sales representative have requested referrals to: ?? [facility]. [facility] ?? 2. [facility] ?? 3. More to be entered ?? Expected date of discharge: 07/14 Note routed to Lidder who will communicate referrals to facilities and [...] hours. If BG remains greater than 240, [id number] units (no more than three times) & call for new basal insulin orders. ??If less than 240 after two hours, give no insulin and resume prior schedule. Will continue to follow Katerin Azul APRN [facility] Endocrinology Diabetes Management Pager [phone] minutes of this 35 minute visit was spent with the patient in counseling on diabetes and treatment plan, reviewing all glucose and insulin data as well as relevant laboratory results with the patient, and coordination of care on the inpatient unit including nursing and primary team. Makayla Stevenson APRN - 07/12/2017 9:52 AM EST Cardiac Surgery Progress Note: ID: [id number] 72 year old male POD#5 s/p CABGx3 [...] hours. If BG remains greater than 240, [id number] units (no more than three times) & [...] AM EST Cardiac Surgery Progress Note: ID: [id number] 72 year old male POD#4 s/p CABGx3 [...] hours. If BG remains greater than 240, [id number] units (no more than three times) & [...] AM EST Cardiac Surgery Progress Note: ID: [id number] 72 year old male POD#3 s/p CABGx3 [...] Gas) No results found for: PHART, PO2ART, NPQ8SCP Assessment/Plan: 72 year old male POD#3 s/p [...] Mami Thao - 07/09/2017 6:29 PM EST Weight Inspector Encounter Note Patient Name: Gregory Hoang : [id number] MR#: [id number] Admit Date: 07/05/2017 4:20 PM Hospital Day 4 days Narrative: Patient was sitting in chair, hugging heart pillow, opened his eyes, nodding to come into room Assessment: Patient was sleepy. Intervention and Outcome: Introduced superintendent transportation services and patient reached his hand out in appreciation. Follow-up: Weight Inspector remains available for support. Time in Direct [...] 10:45 AM EST Report given to staff research scientist to cover care Maddison Cee PA - 07/09/2017 9:00 AM EST Cardiac Surgery Progress Note: ID: [id number] 72 year old male POD#2 s/p CABGx3 [...] completed shifts: In: 7977.4 [I.V.:7477.4; Other:500] Out: 8415 [Urine:3000; Other:615] I- 4 L O- 2.7 [...] when IABP d/c'ed. Gretchen Carolina, PT Pager [phone] Maddison Cee PA - 07/08/2017 11:27 AM EST Cardiac Surgery Progress Note: ID: [id number] 72 year old male POD#1 s/p CABGx3 [...] femoral), TPW, meds CT, L pleural CT, ORXANA ocasio LABS: Recent Labs 07/08/17 0840 07/08/17 [...] in place in R femoral. No hematoma. TOOL TURRET LATHE SET UP OPERATOR- Intact Psych- Anxious Skin- Dry, no [...] EST Inpatient Cardiology Progress Note Patient Name: Gregoyr Hoang Date of Admission: 07/05/2017 ( Hospital [...] intact. IABP in place in R femoral. TOOL TURRET LATHE SET UP OPERATOR- Intact Psych- Anxious Skin- Dry, no [...] pending CABG - hold metformin - f/u [facility] ?? #Home Meds - continue levothyroxine [...] note for details. DAPHNE SHAHID MD Pager [phone] Jet Mckenna MD - 07/05/2017 6:48 PM EST Preliminary Cardiac Catheterization Procedure Note: Procedure(s) performed: Left heart cath, IABP insertion Access: Right CHANNEL EXECUTIVE-->8fr IABP A time-out was conducted prior to [...] effect. Heparin gtt maintained. Pt transferred to dock or pier laborer. documented in this encounter H&P Notes Daphne Shahid MD - 07/05/2017 6:08 PM EST CARDIOLOGY HISTORY & PHYSICAL EXAM Date of Admission: 07/05/2017 ( Hospital Day 0 days ) Responsible Attending: Daphne Shahid MD PCP: Lvoely Vicente MD PCP#: [phone] Patient Active Problem List Diagnosis Code ??? [...] load with heparin drip and transferred to [facility]. While there, continued sob, question of chest pain. Stat TTE showing WMA diffusely and EF around 20%. No significant valvular disease. Taken to the dock or pier laborer urgently for ongoing STEMI. [facility] Labs: INR 1.0 WBC 5.88 Hgb [...] monitor I/O - s/p lasix in the dock or pier laborer, redose to aim net neg 1L [...] Medicine, PGY-2 Cardiology S1, Team Pager # [phone] CARDIOLOGY ATTENDING NOTE Patient: Gregory Hoang Date [...] CAD, not particularly amenable for PCI. DAPHNE SHHAID MD Pager [phone] documented in this encounter Miscellaneous Notes Consult Note - Daphne Shahid MD - 07/14/2017 11:46 AM EST Heart Failure Service Inpatient Consult Note Gregory Hoang Date of : 1945 Age: 72 y.o. Today's date: 07/14/17 PCP: Lovely Vicente MD ENROUTE CONTROLLER: None Place of Service: C451-A Reason for [...] SETUP performed by Manny Mcknight MD at [facility] OR ??? PRO CABG, ARTERIAL, SINGLE N/A 07/07/2017 @CABG, USING ARTERIAL GRAFT;SINGLE ARTERIAL GRAFT (WRVU 33.75) performed by Yuan Webber MD at [facility] OR ??? PRO CABG, ARTERY-VEIN, TWO N/A 07/07/2017 @CABG, TWO VENOUS GRAFTS & ARTERIAL GRAFT (WRVU 7.93) performed by Yuan Webber MD at [facility] OR ??? PRO COLONOSCOPY, REMV LESN, SNARE 01/16/2014 COLONOSCOPY, POLYPECTOMY, REMOVAL LESION BY SNARE performed by Nohemi Jaimes MD at [facility] ENDOSCOPY ??? PRO ENDOSCOPY W/VIDEO-ASST VEIN HARVEST, CABG Right 07/07/2017 ENDOSCOPIC HARVEST VEIN(S) FOR CABG (WRVU 0.31) performed by Yuan Webber MD at [facility] OR ??? PRO THYROIDECTOMY 03/28/2013 THYROIDECTOMY, TOTAL OR COMPLETE performed by Manny Mcknight MD at [facility] MAIN OR Outpt Meds: Current [...] following studies: EKG 07/14/17: NSR 75 bpm, MECHANICAL ENGINEERING TECHNOLOGIST anterior infarct, LAD CXR 07/11/17: FINDINGS: Sternotomy wires. The patient has been extubated, left chest tube removed, and [place] catheter removed since the 07/07/2017 study. Atelectasis [...] was discussed with Zehra. Jaden Kelley MD Shellfish Sorter Pager [phone] CARDIOLOGY ATTENDING NOTE Patient: Gregory Hoang Date [...] heart failure clinic. DAPHNE SHAHID MD Pager [phone] Plan of Care - Alden Chavarria, TRANSPORT ENGINEER - 07/14/2017 11:35 AM EST Problem: Patient [...] Disposition: home with assist Alden Jorge Genikevin, TRANSPORT ENGINEER Pager: [phone] Inpatient Physical Therapy Problem: Acute Rehab Services [...] sit/sit to supine -- Bed Mobility Goal, [place] Level supervision required -- Bed Mobility Goal, [...] - 3 days -- Gait Training Goal, [place] Level supervision required -- Gait Training Goal, [...] days -- Transfer Training Goal, Activity Type ivm-cb-vhjxg/xcliz-ob-sge;lga-wj-moosl/orvur-qd-rhc;toilet -- Transfer Train Goal, [place] Level supervision required -- Transfer Training Goal, [...] keeping present for 2 days per family. Diet Therapist noted of frustrations, house keeping sent to room. Patient offered showered twice, refused. at bedside, frustrated that shower not complete, informed that patient had refused several times. requesting to see NEWS OPERATIONS MANAGER, paged sent to Martha, will come to bedside (middle of consult). not willing to wait, Martha notified that family had gone home. Encouraged to come for morning rounds a t 8am. Diabetes team at bedside - insulin adjustments made. Call cabello in reach. Continue to monitor. PLAN MOVING FORWARD: Ambulate, dressing changes BID, Please change drsg at 4am per Martha NEWS OPERATIONS MANAGER request. INDIVIDUALIZED FALL PREVENTION INTERVENTIONS: Patient-specific [...] levels on the lower side, 60ml of Gautier juice given after a FS of 80. [...] 07/13/17 0502 Interdisciplinary Rounds/Family Conf Participants telephonic nurse case manager;dietitian/nutrition services;nursing;occupational therapy;patient;pharmacy;physical therapy;physician Plan [...] Anticipated Discharge Disposition: home with assist Pager: [phone] CLARISSA SEGAL, PT 07/12/2017 Physical Therapy Rehabilitation [...] to sit/sit to supine Bed Mobility Goal, [place] Level supervision required Bed Mobility Goal, Additional Goal adheres to psternal precautions for transfer Goal: Gait Training Goal Stand Alone Therapy Goal Outcome: Ongoing (Interventions Implemented as Appropriate) 07/12/17 1225 Gait Training Goal Gait Training Goal, Date Established 07/12/17 Gait Training Goal, Time to Achieve 2 - 3 days Gait Training Goal, [place] Level supervision required Gait Training Goal, Assist [...] 3 days Transfer Training Goal, Activity Type ujn-dn-dtfmn/kxlgr-tc-lcd;glt-ak-haehw/xwiqh-yv-gnh;toilet Transfer Train Goal, [place] Level supervision required Transfer Training Goal, Additional Goal adheres to sternal precautions during transfer Consult Note - Octavia Vaughn RN - 07/12/2017 10:50 AM EST [facility] CARDIAC REHABILITATION Gregory Hoang was seen today regarding participation in the outpatient Phase 2 Cardiac Rehabilitation at [facility]. The patient agrees to a referral [...] IV site, amio to other piv and RESEARCH AND EVALUATION ANALYST at bedside to help assess, IV removed. [...] staff, he stood and marched in place. [place] weak, wanting to sit back down. Remained [...] Health/Prescription Coverage: Primary Insurance: MEDICARE Secondary Insurance: [employer] [place] Prescription Coverage: yes Preferred Pharmacy: [facility] [place] Other: none Primary Care Provider: Lovely Vicente MD [phone] Patient/Caregiver Goals of Treatment:live and get my [...] transition of care planning. ERLIN Weiss Pager: [phone] Consult Note - Katerin Azul RN - [...] and to provide a review of termite treater helper diabetes care. Diabetes History: Gregory Hoang [...] potential to d/c gtt and start CF. nursing home diabetes care: Medications - Outpatient treatment regimen recommendations pending based on the hospital course. Monitoring - continue BG tid ac & hs Diet - low fat/low carb diet Exercise - weight-bearing exercise 30 min/day, as tolerated Thank you for allowing us to provide care for your patient W/E coverage, Dr. Jeane Tatum, pager [phone] Katerin Azul APRN Endocrinology Diabetes Management Pager [phone] Plan of Care - Walt Stephanie Wyatt [...] Operative Note Patient Name: Gregory Hoang : [id number] MR#: [id number] Case Date: 07/07/2017 Surgeon: Surgeon(s) and Role: * Yuan Webber MD - Primary * Michael Drake PA - Physician Hospital Education Coordinator * Linda Flores PA - Physician Hospital Education Coordinator Preoperative diagnosis: 3VD Postoperative diagnosis: CAD, severe [...] Operative Note Patient Name: Gregory Hoang : [id number] MR#: [id number] Case Date: 07/07/2017 Surgeon: Surgeon(s) and Role: * Yuan Webber MD - Primary * Michael Drake PA - Physician Hospital Education Coordinator * Linda Flores PA - Physician Hospital Education Coordinator Preoperative diagnosis: 3VD Postoperative diagnosis: CAD, severe [...] major CV events such as , stroke, DC, repeat revascularization compared to PCI). In this [...] Full Code Katty Hahn, MS3 [facility] Cardiology S1 (Pager [phone]) Plan of Care - Emelia Ibarra RN [...] hospital and ruled infor non-ST segment elevation DC. This almost certainly represents the residual of [...] SETUP performed by Manny Mcknight MD at [facility] MAIN OR ??? PRO COLONOSCOPY, REMV LESN, SNARE 01/16/2014 COLONOSCOPY, POLYPECTOMY, REMOVAL LESION BY SNARE performed by Nohemi Jaimes MD at [facility] ENDOSCOPY ??? PRO THYROIDECTOMY 03/28/2013 THYROIDECTOMY, TOTAL OR COMPLETE performed by Manny Mcknight MD at [facility] MAIN OR Social History: Social [...] with other involved physicians Yuan Webber MD [phone] Med Student Progress Note - Katty Hahn [...] major CV events such as , stroke, DC, repeat revascularization compared to PCI). 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 Cardiology S1 (Pager [phone]) Plan of Care - Stephanie Godoy RN - 07/06/2017 5:00 AM EST Problem: Patient Care Overview Goal: Plan of Care Review 07/06/17 4096 Coping/Psychosocial Plan Of Care Reviewed With patient;family [...] in urinal without difficulty. 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 [...] Dolan MD [facility] [address] [place], [place] [address] (Wo rk) 05/28/2022 Laboratory Appointment Lab 05/28/2022 Office Visit Cardiology Zulma Dolan MD [facility] [place] [address] Liz Poole PA [facility] [place] [address] 06/10/2022 Office Visit Dermatology Laura Scherer MD [facility] [address] [place], [place] [address] (Wo rk) Scheduled Orders Name [...] procedure are i n the results section. 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) @CABG, USING ARTERIAL [...] f or this ([facility]) PM EST procedure are i n [...] f or this ([facility]) PM EST procedure are i n [...] 2017 EXAMINATION: XR CHEST PA AND LATERAL ([employer]) CLINICAL HISTORY: CABG x 3 TECHNIQUE: [...] Teague APRN IMG DX ORDERABLES SCAN DOC: HEAD SCORER (07/15/2017 12:00 AM EST) Narrative 07/15/2017 12:00 [...] Address City/State/ZIP Code Phon e Number [address] POCT Glucose (07/14/2017 7:52 AM EST) athologist Signature POC Glucose 126 65 - 199 [facility] mg/dL [facility] LABORATORY [...] Address City/State/ZIP Code Phon e Number [address] (ABNORMAL) Prothrombin Time (07/14/2017 [...] Address City/State/ZIP Code Phon e Number [address] Potassium (07/14/2017 4:46 AM EST) athologist Signature Potassium 4.3 3.5 - 5.0 [facility] mmol/L [facility] LABORATORY [...] Address City/State/ZIP Code Phon e Number [address] POCT Glucose (07/14/2017 4:34 AM EST) athologist Signature POC Glucose 115 65 - 199 [facility] mg/dL [facility] LABORATORY Comment: [...] [place]/ZIP Code Phon e Number [address] POCT Glucose (07/13/2017 11:33 PM EST) athologist Signature POC Glucose 132 65 - 199 [facility] mg/dL [facility] LABORATORY Comment: [...] [place]/ZIP Code Phon e Number [address] POCT Glucose (07/13/2017 9:25 PM EST) athologist Signature POC Glucose 121 65 - 199 [facility] mg/dL [facility] LABORATORY Comment: [...] Address City/State/ZIP Code Phon e Number [address] POCT Glucose (07/13/2017 4:55 [...] Address City/State/ZIP Code Phon e Number [address] POCT Glucose (07/13/2017 11:16 [...] Address City/State/ZIP Code Phon e Number [address] POCT Glucose (07/13/2017 8:07 [...] [place] [address] (ABNORMAL) Prothrombin Time (07/13/2017 [...] [place] [address] (ABNORMAL) Basic Metabolic Panel (non-fasting) (07/13/2017 4:26 AM EST) P athologist Signature Glucose Lvl 95 65 - 199 [facility] mg/dL [facility] LABORATORY [...] or in patients with acute kidney failure. http://[employer]/DHnkdep http://[employer]/DHMCnkf Specimen Anatomical Collection Method Collection Time Receive d Time (Source) Location / / Volume Laterality Blood specimen 07/13/2017 4:26 AM 017 4:46 (specimen) EST AM EST Resulting Agency Comment Spec In Lab Makayla Wilson APRN CHEMISTRY ORDERABLES Performing Organization Address City/[facility]/ZIP Code Phon e Number [address] POCT Glucose (07/13/2017 3:52 AM EST) P athologist Signature POC Glucose 93 65 - 199 [facility] mg/dL [facility] LABORATORY [...] Address City/State/ZIP Code Phon e Number [address] POCT Glucose (07/13/2017 [...] Address City/State/ZIP Code Phon e Number [address] POCT Glucose (07/12/2017 8:22 PM EST) athologist Signature POC Glucose 119 65 - 199 [facility] mg/dL [facility] [...] Address City/State/ZIP Code Phon e Number [address] POCT Glucose (07/12/2017 [...] Organization Address City/State/[place] [address] POCT Glucose (07/12/2017 11:28 AM EST) athologist Signature POC Glucose 164 65 - 199 [facility] mg/dL [facility] LABORATORY Comment: [...] Address City/State/ZIP Code Phon e Number [address] POCT Glucose (07/12/2017 7:34 AM EST) athologist Signature POC Glucose 109 65 - 199 [facility] mg/dL [facility] LABORATORY Comment: [...] Organization Address City/State/[place] [address] (ABNORMAL) Basic Metabolic Panel (non-fasting) (07/12/2017 4:11 AM EST) athologist Signature Glucose Lvl 92 65 - 199 [facility] mg/dL [facility] LABORATORY Comment: [...] or in patients with acute kidney failure. http://[employer]/DHnkdep http://[employer]/DHMCnkf Specimen Anatomical Collection Method Collection Time Receive d Time (Source) Location / / Volume Laterality Blood specimen 07/12/2017 4:11 AM 017 8:57 (specimen) EST AM EST Resulting Agency Comment Spec In Lab Makayla Katie QUINONES CHEMISTRY ORDERABLES Performing Organization Address City/State/[place] [address] (ABNORMAL) Prothrombin Time (07/12/2017 [...] [place] [address] Potassium (07/12/2017 4:11 AM EST) athologist Signature Potassium 3.8 3.5 - 5.0 [facility] mmol/L [facility] LABORATORY [...] [place] [address] POCT Glucose (07/12/2017 4:10 AM EST) athologist Signature POC Glucose 90 65 - 199 [facility] LABORATORY Comment: [...] [place] [address] POCT Glucose (07/11/2017 11:57 PM EST) athologist Signature POC Glucose 98 65 - 199 [facility] LABORATORY Comment: [...] Organization Address City/State/[place] [address] POCT Glucose (07/11/2017 8:32 PM EST) P athologist Signature POC Glucose 146 65 - 199 [facility] mg/dL [facility] LABORATORY [...] Organization Address City/State/[place] [address] XR Chest PA & [...] xtubated, left chest tube removed, and [place]-Suzi catheter removed since the study. Atelectasis at [...] xtubated, left chest tube removed, and [place]-Suzi catheter removed since the study. Atelectasis at [...] 223 (H) 65 - 199 [facility] mg/dL [facility] LABORATORY Comment: [...] [place]/ZIP Code Phon e Number [address] POCT Glucose (07/11/2017 11:55 AM EST) athologist Signature POC Glucose 176 65 - 199 [facility] mg/dL [facility] [...] [place] [address] POCT Glucose (07/11/2017 7:53 AM EST) athologist Signature POC Glucose 189 65 - 199 [facility] LABORATORY Comment: [...] [place]/ZIP Code Phon e Number [address] POCT Glucose (07/11/2017 4:22 AM EST) athologist Signature POC Glucose 151 65 - 199 [facility] LABORATORY Comment: [...] [place]/ZIP Code Phon e Number [address] Potassium (07/11/2017 2:20 AM EST) athologist Signature Potassium 4.5 3.5 - 5.0 [facility] mmol/L [facility] LABORATORY [...] [place]/ZIP Code Phon e Number [address] POCT Glucose (07/11/2017 [...] CARE TEST ORDERABLE S Performing Organization Address [facility] [place]/ZIP Code Phon e Number [address] POCT Glucose (07/10/2017 8:47 [...] [place]/ZIP Code [place] [address] POCT Glucose (07/10/2017 4:06 [...] Address City/State/ZIP Code Phon e Number [address] POCT Glucose (07/10/2017 3:08 PM EST) athologist Signature POC Glucose 151 65 - 199 [facility] mg/dL [facility] LABORATORY Comment: [...] Address City/State/ZIP Code Phon e Number [address] POCT Glucose (07/10/2017 2:25 PM EST) athologist Signature POC Glucose 146 65 - 199 [facility] mg/dL [facility] LABORATORY Comment: [...] Address City/State/ZIP Code Phon e Number [address] POCT Glucose (07/10/2017 [...] Address City/State/ZIP Code Phon e Number [address] POCT Glucose (07/10/2017 [...] Address City/State/ZIP Code Phon e Number [address] POCT Glucose (07/10/2017 11:01 AM EST) athologist Signature POC Glucose 158 65 - 199 [facility] mg/dL [facility] [...] Address City/State/ZIP Code Phon e Number [address] POCT Glucose (07/10/2017 [...] Organization Address City/State/[place] [address] POCT Glucose (07/10/2017 8:58 [...] Address City/State/ZIP Code Phon e Number [address] POCT Glucose (07/10/2017 [...] Address City/State/ZIP Code Phon e Number [address] POCT Glucose (07/10/2017 [...] Address City/State/ZIP Code Phon e Number [address] POCT Glucose (07/10/2017 6:00 AM EST) P athologist Signature POC Glucose 162 65 - 199 [facility] mg/dL [facility] LABORATORY [...] Organization Address City/State/[place] [address] (ABNORMAL) Differential, Automated (07/10/2017 4:28 AM EST) Patholo gist Method Time Signature Neutrophils % 87.9 % [facility] LABORATORY Neutr Abs (ANC) 10.70 (H) 1.70 - [facility] 6.10 [facility] x10(3)/[facility] LABORATORY Lymphocytes % 3.9 % [facility] LABORATORY Lymphocytes Abs 0.5 (L) 0.9 - 3.2 [facility] x10(3)/[facility] LABORATORY Monocytes % 7.0 % [facility] LABORATORY Monocyte Abs 0.8 0.3 - 0.9 [facility] x10(3)/[facility] LABORATORY Eosinophils % 0.3 % [facility] LABORATORY Eosinophils Abs 0.0 0.0 - 0.4 [facility] x10(3)/[facility] LABORATORY Basophils % 0.2 % [facility] LABORATORY Basophils Abs 0.0 0.0 - 0.1 [facility] x10(3)/[facility] LABORATORY Immature Gran % 0.70 [...] Organization Address City/State/[place] [address] (ABNORMAL) Hemogram (07/10/2017 4:28 AM EST) Analysis Performed At Patho logist Time Signature WBC 12.2 (H) 4.0 - 9.5 [facility] x10(3)/[facility] LABORATORY RBC 3.31 (L) 4.58 - [facility] 5.54 [facility] x10(6)/[facility] LABORATORY Hemoglobin 9.8 (L) 13.7 - [facility] 16.5 gm/dL [facility] LABORATORY Hematocrit 30.0 (L) 40.5 - [facility] 48.5 % [facility] LABORATORY MCV 90.6 82.9 - [facility] 93.1 [facility] LABORATORY MCH 29.6 27.5 - [facility] 32[facility] [facility] LABORATORY MCHC 32.7 32.0 - [facility] 35.7 gm/dL [facility] LABORATORY Platelets 135 (L) 145 - 357 [facility] x10(3)/[facility] LABORATORY RDWSD 50.8 (H) 36.0 - [facility] 45.0 [facility] LABORATORY RDWCV 15.4 (H) 11.4 - [facility] 13.8 % [facility] LABORATORY MPV 10.0 7.6 - 12.9 [facility] LABORATORY nRBC % Auto 0.0 % [facility] LABORATORY nRBC Abs Auto 0.000 0.000 - [facility] [facility] x10(3)/[facility] LABORATORY Specimen Anatomical Collection Method Collection Time Receive d Time (Source) Location / / Volume Laterality Blood specimen 07/10/2017 4:28 AM 017 4:36 (specimen) EST AM EST Resulting Agency Comment Spec In Lab Yuan Webber MD HEMATOLOGY ORDERABLES Performing Organization Address City/[facility]/[place] [address] (ABNORMAL) Basic Metabolic Panel (non-fasting) (07/10/2017 4:28 AM EST) P athologist Signature Glucose Lvl 178 65 - 199 [facility] mg/dL [facility] LABORATORY [...] or in patients with acute kidney failure. http://[employer]/DHnkdep http://[employer]/DHMCnkf Specimen Anatomical Collection Method Collection Time Receive d Time (Source) Location / / Volume Laterality Blood specimen 07/10/2017 4:28 AM 017 4:36 (specimen) EST AM EST Resulting Agency Comment Spec In Lab Yuan Webber MD CHEMISTRY ORDERABLES Performing Organization Address City/[facility]/[place] [address] POCT Glucose (07/10/2017 4:26 AM EST) P athologist Signature POC Glucose 176 65 - 199 [facility] mg/dL [facility] LABORATORY Comment: [...] Address City/State/ZIP Code [place] [address] (ABNORMAL) POCT Glucose (07/10/2017 3:06 AM EST) athologist Signature POC Glucose 204 (H) 65 - 199 [facility] mg/dL [facility] LABORATORY Comment: [...] City/State/ZIP Code [place] [address] (ABNORMAL) POCT Glucose (07/10/2017 [...] Address City/State/ZIP Code Phon e Number [address] POCT Glucose (07/10/2017 1:09 AM EST) P athologist Signature POC Glucose 196 65 - 199 [facility] mg/dL [facility] [...] Address City/State/ZIP Code Phon e Number [address] POCT Glucose (07/10/2017 12:10 AM EST) athologist Signature POC Glucose 173 65 - 199 [facility] mg/dL [facility] LABORATORY Comment: [...] Address City/State/ZIP Code Phon e Number [address] POCT Glucose (07/09/2017 [...] Address City/State/ZIP Code Phon e Number [address] POCT Glucose (07/09/2017 [...] Address City/State/ZIP Code Phon e Number [address] POCT Glucose (07/09/2017 9:31 PM EST) athologist Signature POC Glucose 121 65 - 199 [facility] mg/dL [facility] [...] Address City/State/ZIP Code Phon e Number [address] POCT Glucose (07/09/2017 [...] Organization Address City/State/[place] [address] POCT Glucose (07/09/2017 8:09 [...] Address City/State/ZIP Code Phon e Number [address] POCT Glucose (07/09/2017 [...] Address City/State/ZIP Code Phon e Number [address] POCT Glucose (07/09/2017 [...] Address City/State/ZIP Code Phon e Number [address] POCT Glucose (07/09/2017 [...] Address City/State/ZIP Code Phon e Number [address] POCT Glucose (07/09/2017 2:26 PM EST) athologist Signature POC Glucose 179 65 - 199 [facility] mg/dL [facility] [...] Organization Address City/State/[place] [address] (ABNORMAL) POCT Glucose (07/09/2017 1:29 PM EST) athologist Signature POC Glucose 210 (H) 65 - 199 [facility] mg/dL [facility] LABORATORY Comment: [...] Organization Address City/State/[place] [address] POCT Glucose (07/09/2017 12:20 [...] Address City/State/ZIP Code Phon e Number [address] POCT Glucose (07/09/2017 11:24 [...] Address City/State/ZIP Code Phon e Number [address] POCT Glucose (07/09/2017 [...] Address City/State/ZIP Code Phon e Number [address] POCT Glucose (07/09/2017 [...] Organization Address City/State/[place] [address] POCT Glucose (07/09/2017 8:02 AM EST) P athologist Signature POC Glucose 178 65 - 199 [facility] mg/dL [facility] LABORATORY [...] Organization Address City/State/[place] [address] (ABNORMAL) BLOOD GAS 2 ARTERIAL (07/09/2017 5:37 AM EST) Analysis Performed At Patho logist Time Signature pH Art 7.36 7.35 - [facility] 7.45 [facility] LABORATORY pCO2 Art 38 35 - 45 [facility] [address] [facility] LABORATORY pO2 Art 79 (L) 85 - 104 [facility] [address] [facility] LABORATORY HCO3 Art 20.9 20.0 - [facility] 26.0 [facility] mmol/L [facility] LABORATORY BE Art -4.6 (L) -3.0 - 3.0 [facility] mmol/L [facility] LABORATORY Hgb Blood Gas 10.5 (L) 13.7 - [facility] 16.5 gm/dL [facility] LABORATORY O2HB Art 93.8 (L) 94.0 - [facility] 97.0 % [facility] [...] Blood 113 (H) 98 - 107 mmol/L [facility] LABORATORY Gluc Whole Bld 175 65 - 199 mg/dL [facility] LABORATORY Comment: Diabetes: >=200 mg/dL plus symp toms. Lactate WB 1.0 0.5 - 2.2 mmol/L [facility] LABORATORY FIO2 Art 40 % [facility] LABORATORY PF Ratio Art 198 [facility] LABORATORY Specimen Anatomical Collection Method Collection Time Receive d Time (Source) Location / / Volume Laterality Blood specimen 07/09/2017 5:37 AM 017 5:37 (specimen) EST AM EST Yuan Webber MD CHEMISTRY ORDERABLES Performing Organization Address City/State/[place] [address] POCT Glucose (07/09/2017 3:27 AM EST) P athologist Signature POC Glucose 192 65 - 199 [facility] mg/dL [facility] LABORATORY [...] Organization Address City/State/[place] [address] (ABNORMAL) Basic Metabolic Panel (non-fasting) (07/09/2017 2:30 AM EST) P athologist Signature Glucose Lvl 179 65 - 199 [facility] mg/dL [facility] LABORATORY [...] or in patients with acute kidney failure. http://[employer]/DHnkdep http://[employer]/DHMCnkf Specimen Anatomical Collection Method Collection Time Receive d Time (Source) Location / / Volume Laterality Blood specimen Venous Draw / 07/09/2017 2:30 AM 2016 2:42 (specimen) Unknown EST AM EST Resulting Agency Comment Spec In Lab Yuan Webber MD CHEMISTRY ORDERABLES Performing Organization Address City/State/[place] [address] (ABNORMAL) Potassium (07/09/2017 2:30 [...] [place] [address] (ABNORMAL) Hemogram (07/09/2017 2:30 AM EST) Analysis Performed At Patho logist Time Signature WBC 12.5 (H) 4.0 - 9.5 [facility] x10(3)/[facility] LABORATORY RBC 3.38 (L) 4.58 - [facility] [address].54 [facility] x10(6)/[facility] LABORATORY Hemoglobin 10.1 (L) 13.7 - [facility] 16.5 gm/dL [facility] LABORATORY Hematocrit 30.3 (L) 40.5 - [facility] 48.5 % [facility] LABORATORY MCV 89.6 82.9 - [facility] 93.1 [facility] LABORATORY MCH 29.9 27.5 - [facility] 32.[address] [facility] LABORATORY MCHC 33.3 32.0 - [facility] 35.7 gm/dL [facility] LABORATORY Platelets 127 (L) 145 - 357 [facility] x10(3)/[facility] LABORATORY RDWSD 49.3 (H) 36.0 - [facility] 45.0 [facility] LABORATORY RDWCV 15.2 (H) 11.4 - [facility] 13.8 % [facility] LABORATORY MPV 9.9 7.6 - 12.9 [facility] LABORATORY nRBC % Auto 0.0 % [facility] LABORATORY nRBC Abs Auto 0.000 0.000 - [facility] [address] [facility] x10(3)/[facility] LABORATORY Specimen Anatomical Collection Method Collection Time Receive d Time (Source) Location / / Volume Laterality Blood specimen 07/09/2017 2:30 AM 017 2:41 (specimen) EST AM EST Resulting Agency Comment Spec In Lab Yuan Webber MD HEMATOLOGY ORDERABLES Performing Organization Address City/State/ZIP Code Phon e Number 30 [address] POCT Glucose (07/09/2017 2:10 AM EST) athologist Signature POC Glucose 169 65 - 199 [facility] LAB[facility]ATORY Comment: [...] Address City/State/ZIP Code Phon e Number [address] POCT Glucose (07/09/2017 1:01 AM EST) athologist Signature POC Glucose 173 65 - 199 [facility] mg[facility]dL [facility] Comment: [...] Address City/State/ZIP Code Phon e Number [address] Blood culture (07/09/2017 12:40 AM EST) [facility] Method Time Signature Blood Culture No growth [...] [place]/ZIP Code Phon e Number [address] Blood culture (07/09/2017 12:30 AM EST) [facility] Method Time Signature Blood Culture No growth [...] [place]/ZIP Code Phon e Number [address] (ABNORMAL) Urinalysis Microscopic Exam [...] Address City/State/ZIP Code Phon e Number [address] (ABNORMAL) Urinalysis with reflex Culture (07/09/2017 12:05 AM EST) Patholo gist Method Time Signature Glucose UA Negative Negative [facility] Protein UA 30 (A) Negative [facility] mg[facility]dL [facility] Bilirubin UA Negative Negative [facility] mg/dL [facility] LABORATORY [...] CENTER LABORATORY Ketones UA Negative Negative mg/dL [facility] LABOR[facility]ORY Nitrite UA Negative Negative [facility] LABORATORY Leukocytes UA Negative Negative [facility] LABORATORY Appearance UA Hazy (A) Clear [facility] LABORATORY Spec [place] UA 1.025 1.002 - 1.030 [facility] LABORAT[facility] Color UA Yellow Yellow [facility] LABORATORY Culture Reflexed No [facility] LABORATORY Specimen (Source) Anatomical Collection Method Collection Time Re ceived Time Location / / Volume Laterality Urine specimen 07/09/2017 12:05 7 obtained via AM EST 12:39 AM EST indwelling urinary catheter (specimen) Resulting Agency Comment Spec In Lab Yuan Webber MD URINE ORDERABLES Performing Organization Address City/State/ZIP Code Phon e Number [place] [id number] [facility] [address] POCT Glucose (07/08/2017 11:01 PM EST) P athologist Signature POC Glucose 191 65 - 199 [facility] mg/dL [facility] LABORATORY [...] Organization Address City/State/[place] [address] POCT Glucose (07/08/2017 10:04 PM EST) P athologist Signature POC Glucose 198 65 - 199 [facility] Comment: [...] Organization Address City/State/[place] [address] Prepare Albumin 5% in [...] Address City/State/ZIP Code Phon e Number [address] POCT Glucose (07/08/2017 8:28 PM EST) P athologist Signature POC Glucose 195 65 - 199 [facility] Comment: [...] [place] [address] (ABNORMAL) POCT Glucose (07/08/2017 7:13 PM EST) P athologist Signature POC Glucose 220 (H) 65 - 199 [facility] mg/dL [facility] Comment: [...] [place] [address] POCT Glucose (07/08/2017 5:04 PM EST) P athologist Signature POC Glucose 147 65 - 199 [facility] mg/dL [facility] Comment: [...] Organization Address City/State/[place] [address] (ABNORMAL) BLOOD GAS 2 ARTERIAL (07/08/2017 4:13 PM EST) Analysis Performed At Patho logist Time Signature pH Art 7.38 7.35 - [facility] 7.45 [facility] LABORATORY pCO2 Art 36 35 - 45 [facility] LABORATORY pO2 Art 91 85 - 104 [facility] LABORATORY HCO3 Art 20.9 20.0 - [facility] 26.0 [facility] mmol/L [facility] LABORATORY BE Art -4.2 (L) -3.0 - 3.0 [facility] mmol/L [facility]ORY Hgb Blood Gas 11.7 (L) 13.7 - [facility] 16.5 gm/dL [facility]ORY O2HB Art 95.1 94.0 - [facility] 97.0 % [facility] [...] Blood 110 (H) 98 - 107 mmol/L [facility] LABORATORY Gluc Whole Bld 155 65 - 199 mg/dL [facility] Comment: Diabetes: >=200 mg/dL plus symp toms. Lactate WB 1.4 0.5 - 2.2 mmol/L [facility] LABORATORY FIO2 Art 40 % [facility] PF Ratio Art 228 [facility] LABORATORY Specimen Anatomical Collection Method Collection Time Receive d Time (Source) Location / / Volume Laterality Blood specimen 07/08/2017 4:13 PM 017 4:13 (specimen) EST PM EST Yuan Webber MD CHEMISTRY ORDERABLES Performing Organization Address City/State/[place] [address] POCT Glucose (07/08/2017 4:01 [...] Address City/State/ZIP Code Phon e Number [address] POCT Glucose (07/08/2017 [...] [place]/ZIP Code Phon e Number [address] POCT Glucose (07/08/2017 [...] Organization Address City/State/[place] [address] POCT Glucose (07/08/2017 11:53 AM EST) athologist Signature POC Glucose 156 65 - 199 [facility] mg/dL [facility] [...] Address City/State/ZIP Code Phon e Number [address] POCT Glucose (07/08/2017 11:04 AM EST) athologist Signature POC Glucose 181 65 - 199 [facility] mg/dL [facility] Comment: [...] [place] [address] (ABNORMAL) POCT Glucose (07/08/2017 9:24 AM EST) athologist Signature POC Glucose 203 (H) 65 - 199 [facility] mg/dL [facility] Comment: [...] Address City/State/ZIP Code Phon e Number [address] APTT (07/08/2017 8:40 AM [...] Organization Address City/State/[place] [address] (ABNORMAL) Prothrombin Time (07/08/2017 [...] Organization Address City/State/[place] [address] (ABNORMAL) POCT Glucose (07/08/2017 7:38 AM EST) athologist Signature POC Glucose 232 (H) 65 - 199 [facility] mg/dL [facility] LABORATORY [...] [place] [address] (ABNORMAL) POCT Glucose (07/08/2017 [...] [place] [address] (ABNORMAL) POCT Glucose (07/08/2017 [...] Organization Address City/State/[place] [address] (ABNORMAL) POCT Glucose (07/08/2017 [...] Organization Address City/State/[place] [address] (ABNORMAL) POCT Glucose (07/08/2017 4:52 AM EST) P athologist Signature POC Glucose 257 (H) 65 - 199 [facility] mg/dL [facility] LABORATORY [...] [place] [address] (ABNORMAL) BLOOD GAS 2 ARTERIAL (07/08/2017 4:04 AM EST) Analysis Performed At Patho logist Time Signature pH Art 7.30 (L) 7.35 - [facility] 7.45 [facility] LABORATORY pCO2 Art 41 35 - 45 [facility] mmHg [facility] LABORATORY pO2 Art 83 (L) 85 - 104 [facility] LABORATORY HCO3 Art 19.6 (L) 20.0 - [facility] 26.0 [facility] mmol/L HOSPITAL LABORATORY BE Art -6.8 (L) -3.0 - 3.0 [facility] mmol/L [facility] LABORATORY Hgb Blood Gas 12.2 (L) 13.7 - [facility] 16.5 gm/dL [facility] LABORATORY O2HB Art 93.5 (L) 94.0 - [facility] 97.0 % [facility] [...] Whole Blood 107 98 - 107 mmol/L [facility] LABORATORY Gluc Whole Bld 274 (H) 65 - 199 mg/dL [facility] Comment: Diabetes: >=200 mg/dL plus symp toms. Lactate WB 4.4 (Critical) 0.5 - 2.2 mmol/L [facility] LABORATORY Comment: Noted by instrumentation manager. FIO2 Art 40 % [facility] PF Ratio Art 208 [facility] LABORATORY Specimen Anatomical Collection Method Collection Time Receive d Time (Source) Location / / Volume Laterality Blood specimen 07/08/2017 4:04 AM 017 4:04 (specimen) EST AM EST Daphne Shahid MD CHEMISTRY ORDERABLES Performing Organization Address City/[facility] [address] Scan, Peripheral Blood (07/08/2017 [...] [place] [address] (ABNORMAL) Differential, Automated (07/08/2017 4:00 AM EST) [facility] Method Time Signature Neutrophils % 85.4 % [facility] LABORATORY Neutr Abs (ANC) 16.07 (H) 1.70 - [facility] 6.10 [facility] x10(3)/[facility] L LABORATORY Lymphocytes % 3.5 % [facility] LABORATORY Lymphocytes Abs 0.6 (L) 0.9 - 3.2 [facility] x10(3)/[facility] LABORATORY Monocytes % 10.4 % [facility] LABORATORY Monocyte Abs 2.0 (H) 0.3 - 0.9 [facility] x10(3)/[facility] LABORATORY Eosinophils % 0.0 % [facility] LABORATORY Eosinophils Abs 0.0 0.0 - 0.4 [facility] x10(3)/[facility] LABORATORY Basophils % 0.1 % [facility] LABORATORY Basophils Abs 0.0 0.0 - 0.1 [facility] x10(3)/[facility] LABORATORY Immature Gran % 0.60 [...] Gran Abs 0.12 (H) 0.00 - 0.04 x10(3)/[facility] LABORATORY Specimen Anatomical Collection Method Collection Time Receive d Time (Source) Location / / Volume Laterality Blood specimen 07/08/2017 4:00 AM 017 4:09 (specimen) EST AM EST Resulting Agency Comment Spec In Lab Yuan Webber MD HEMATOLOGY ORDERABLES Performing Organization Address City/State/[place] [address] (ABNORMAL) Hemogram (07/08/2017 4:00 AM EST) Analysis Performed At Patho logist Time Signature WBC 18.8 (H) 4.0 - 9.5 [facility] x[facility](3)/[facility] LABORATORY RBC 4.00 (L) 4.58 - [facility] 5.54 [facility] x10(6)/[facility] LABORATORY Hemoglobin 11.9 (L) 13.7 - [facility] 16.5 gm/dL [facility] LABORATORY Hematocrit 35.9 (L) 40.5 - [facility] 48.5 % [facility] LABORATORY MCV 89.8 82.9 - [facility] 93.1 [facility] LABORATORY MCH 29.8 27.5 - [place] 32.[address] [facility] LABORATORY MCHC 33.1 32.0 - [facility] 35.7 gm/dL [facility] LABORATORY Platelets 232 145 - 357 [facility] x10(3)/[facility] LABORATORY RDWSD 47.6 (H) 36.0 - [facility] 45.0 [facility] LABORATORY RDWCV 14.5 (H) 11.4 - [place] 13.8 % [facility] LABORATORY MPV 9.5 7.6 - 12.9 [facility] nRBC % Auto 0.0 % [facility] LABORATORY nRBC Abs Auto 0.000 0.000 - [place] [facility] [address] [facility] x10(3)/[facility] LABORATORY Specimen Anatomical Collection Method Collection Time Receive d Time (Source) Location / / Volume Laterality Blood specimen 07/08/2017 4:00 AM 017 4:09 (specimen) EST AM EST Resulting Agency Comment Spec In Lab Yuan Webber MD HEMATOLOGY ORDERABLES Performing Organization Address City/State/[place] [address] (ABNORMAL) Electrolytes panel (07/08/2017 4:00 AM EST) P athologist Signature Sodium 139 135 - 145 [facility] mmol/L [facility] LABORATORY Potassium 4.7 3.5 - 5.0 [facility]/L [facility] LAB[facility]ORY Comment: [...] Organization Address City/State/[place] [address] (ABNORMAL) Cardiac Enzymes (LEB/CGP) (07/08/2017 4:00 AM EST) P athologist Signature Troponin-T 1.88 (H) 0.00 - [facility] 0.00 ng/mL [facility] [...] additional sample may be indicated. Reference: Third [place] Definition of Myocardial Infarction. Journal of the [place] [employer] 2012;60:1581-98 CK, Total 413 [...] [place]/ZIP Code Phon e Number [address] (ABNORMAL) Glucose, fasting (07/08/2017 4:00 AM EST) athologist Signature Glucose 287 (H) 65 - 99 [facility] Fasting mg/dL [facility] [...] of Diabetes Mellitus, Position Statement from the [place] [employer]. ??Diabete s Care, Volume 33, Supplement 1, Jul 2009 Specimen Anatomical Collection Method Collection Time Receive d Time (Source) Location / / Volume Laterality Blood specimen 07/08/2017 4:00 AM 017 4:09 (specimen) EST AM EST Resulting Agency Comment Spec In Lab Yuan Webber MD CHEMISTRY ORDERABLES Performing Organization Address City/[facility] [place]/ZIP [facility] [place] [address] (ABNORMAL) Creatinine (07/08/2017 4:00 AM EST) Analysis Performed At Patho logist Time Signature Creatinine 1.55 (H) 0.80 - [facility] 1.50 mg/dL [facility] LABORATORY Estimated GFR 44 (L) >=60 [facility] LAB[facility] Comment: The reported eGFR should be multiplied b y 1.2 for patients. The MDRD is not an appropriate measure o f renal function for patients with body mass extremes or in patients with acute kidney failure. http://[employer]/DHnkdep http://[employer]/DHMCnkf Specimen Anatomical Collection Method Collection Time Receive d Time (Source) Location / / Volume Laterality Blood specimen 07/08/2017 4:00 AM 017 4:09 (specimen) EST AM EST Resulting Agency Comment Spec In Lab Yuan Webber MD CHEMISTRY ORDERABLES Performing Organization Address City/[facility] Phon e Number [address] BUN (07/08/2017 4:00 AM EST) P athologist Signature BUN 16 10 - 20 [facility] mg/dL [facility] LABORATORY Specimen Anatomical Collection Method Collection Time Receive d Time (Source) Location / / Volume Laterality Blood specimen 07/08/2017 4:00 AM 017 4:09 (specimen) EST AM EST Resulting Agency Comment Spec In Lab Yuan Webber MD CHEMISTRY ORDERABLES Performing Organization Address City/[facility] [place] [address] (ABNORMAL) POCT Glucose (07/08/2017 3:00 AM EST) P athologist Signature POC Glucose 273 (H) 65 - 199 [facility] mg/dL [facility] Comment: [...] Organization Address City/State/[place] [address] (ABNORMAL) POCT Glucose (07/08/2017 1:57 AM EST) athologist Signature POC Glucose 288 (H) 65 - 199 [facility] mg/dL [facility] [...] Organization Address City/State/[place] [address] (ABNORMAL) POCT Glucose (07/08/2017 1:01 AM EST) athologist Signature POC Glucose 315 (H) 65 - 199 [facility] mg/dL [facility] LAB[facility]ATORY Comment: [...] Organization Address City/State/[place] [address] (ABNORMAL) BLOOD GAS 2 ARTERIAL (07/08/2017 12:09 AM EST) athologist Signature pH Art 7.26 7.35 - [facility] (Critical) 7.45 [facility] LABORATORY Comment: Noted by instrumentation manager. pCO2 Art 41 35 - 45 mmHg [facility] LABORATORY pO2 Art 96 85 - [...] Blood 109 (H) 98 - 107 mmol/L [facility] LABORATORY Gluc Whole Bld 315 (H) 65 - 199 mg/dL [facility] LAB[facility] Comment: Diabetes: >=200 mg/dL plus symp toms. Lactate WB 7.6 (Critical) 0.5 - 2.2 mmol/L [facility] LABORATORY Comment: Noted by instrumentation manager. FIO2 Art 40 % [facility] LABORATORY PF Ratio Art 240 [facility] LABORATORY Specimen Anatomical Collection Method Collection Time Receive d Time (Source) Location / / Volume Laterality Blood specimen Arterial Draw / 07/08/2017 12:09 2016 5:31 (specimen) Unknown AM EST AM EST Resulting Agency Comment Spec In Lab Samy Maldonado MD CHEMISTRY ORDERABLES Performing Organization Address City/State/[place] [address] (ABNORMAL) POCT Glucose (07/07/2017 10:56 PM EST) athologist Signature POC Glucose 292 (H) 65 - 199 [facility] mg/dL [facility] LABORATORY [...] Organization Address City/State/[place] [address] (ABNORMAL) BLOOD GAS 2 ARTERIAL (07/07/2017 10:04 PM EST) athologist Signature pH Art 7.22 7.35 - [facility] (Critical) 7.45 [facility] LABORATORY Comment: Noted by instrumentation manager. pCO2 Art 42 35 - 45 mmHg [facility] LABORATORY pO2 Art 94 85 - [...] Blood 3.3 (L) 3.5 - 5.0 mmol/L [facility] [...] Whole Blood 107 98 - 107 mmol/L [facility] LABORATORY Gluc Whole Bld 304 (H) 65 - 199 mg/dL [facility] Comment: Diabetes: >=200 mg/dL plus symp toms. Lactate WB 8.2 (Critical) 0.5 - 2.2 mmol/L [facility] LABORATORY Comment: Noted by instrumentation manager. FIO2 Art 40 % [facility] LABORATORY PF Ratio Art 235 [facility] LABORATORY Specimen Anatomical Collection Method Collection Time Receive d Time (Source) Location / / Volume Laterality Blood specimen 07/07/2017 10:04 7 (specimen) PM EST 10:04 PM EST Daphne Shahid MD CHEMISTRY ORDERABLES Performing Organization Address City/State/ZIP Code Phon e Number [address] (ABNORMAL) Hemoglobin (07/07/2017 10:00 PM EST) P athologist Signature Hemoglobin 12.8 (L) 13.7 - [facility] 16.5 gm/dL [facility] LABORATORY Specimen Anatomical Collection Method Collection Time Receive d Time (Source) Location / / Volume Laterality Blood specimen 07/07/2017 10:00 7 (specimen) PM EST 10:13 PM EST Resulting Agency Comment Spec In Lab Yuan Webber MD HEMATOLOGY ORDERABLES Performing Organization Address City/State/ZIP Code Phon e Number [address] (ABNORMAL) Potassium (07/07/2017 10:00 PM EST) P athologist Signature Potassium 3.4 (L) 3.5 - 5.0 [facility] mmol/L [facility] LABORATORY [...] [place] [address] (ABNORMAL) POCT Glucose (07/07/2017 8:49 PM EST) P athologist Signature POC Glucose 241 (H) 65 - 199 [facility] mg/dL [facility] LABORATORY [...] [place] [address] Prepare Albumin 5% in [...] [place] [address] EKG 12 Lead (07/07/2017 7:17 PM EST) Component Value Ref Range Test Analysis Performed Pathologis t Method Time At Signature Ventricular rate 75 BPM MUSE SYSTEM Atrial Rate 75 BPM MUSE SYSTEM P-R Interval 168 ms MUSE SYSTEM QRS Duration 104 ms MUSE SYSTEM Q-T Interval 462 ms MUSE SYSTEM QTC Calculated 515 ms MUSE SYSTEM (Bezet) Calculated P [place] 52 degrees MUSE SYSTEM Calculated R [place] -40 degrees MUSE SYSTEM Calculated T [place] 39 degrees MUSE SYSTEM INTERPRETATION Normal sinus [...] PM 7 8:11 EST AM EST Yuan Wbeber MD ECG ORDERABLES Performing Organization Address City/State/ZIP [...] 7.35 - [facility] (Critical) 7.45 [facility] LABORATORY Comment: Noted by instrumentation manager. pCO2 Art 50 (H) 35 - 45 mmHg [facility] LABORATORY pO2 Art 238 (H) 85 [...] [facility] Comment: Noted by instrumentation manager. [...] Whole Blood 107 98 - 107 mmol/L [facility] LABORATORY Gluc Whole Bld 270 (H) 65 - 199 mg/dL [facility] Comment: Diabetes: >=200 mg/dL plus symp toms. Lactate WB 4.9 (Critical) 0.5 - 2.2 mmol/L [facility] LABOR[facility]ORY Comment: Noted by instrumentation manager. FIO2 Art 100 % [facility] LABOR[facility]ORY PF Ratio Art 238 [facility]OR[facility] Specimen Anatomical Collection Method Collection Time Receive d Time (Source) Location / / Volume Laterality Blood specimen 07/07/2017 6:57 PM 017 6:57 (specimen) EST PM EST Daphne Shahid MD CHEMISTRY ORDERABLES Performing Organization Address City/State/[place] [address] (ABNORMAL) BLOOD GAS 2 ARTERIAL (07/07/2017 5:31 PM EST) P athologist Signature pH Art 7.29 7.35 - [facility] (Critical) 7.45 [facility] LABORATORY Comment: Noted by instrumentation manager. pCO2 Art 48 (H) 35 - 45 mmHg [facility] LABORATORY pO2 Art 137 (H) 85 - 104 mmHg [facility] LABORATORY HCO3 Art 22.4 20.0 - 26.0 mmol/L [facility] LABORATORY BE [...] Whole Blood 4.0 3.5 - 5.0 mmol/L [facility] Whole Blood 105 98 - 107 mmol/L [facility] LABORATORY Gluc Whole Bld 293 (H) 65 - 199 mg/dL [facility] [...] Organization Address City/State/[place] [address] Fibrinogen (07/07/2017 5:30 PM EST) P athologist Signature Fibrinogen 224 180 - 510 [facility] mg/dL [facility] LABORATORY [...] Address City/[facility] Code Phon e Number [address] APTT (07/07/2017 5:30 [...] Perez MD HEMATOLOGY ORDERABLES Performing Organization Address [facility] [place] [address] (ABNORMAL) Prothrombin Time (07/07/2017 [...] [place] [address] (ABNORMAL) Hemogram (07/07/2017 5:30 PM EST) athologist Signature WBC 19.6 (H) 4.0 - 9.5 [facility] x10(3)/[facility] LABORATORY RBC 3.08 (L) 4.58 - [facility] 5.54 [facility] x10(6)/[facility] LABORATORY Hemoglobin 9.2 (L) 13.7 - [facility] 16.5 gm/dL [facility] Hematocrit 28.0 (L) 40.5 - [facility] 48.5 % [facility] LABORATORY Comment: This result has been called to MONICA MORAN by DONALD GROSSMAN on 07 07 2017 at 1759, and has been read back. MCV 90.9 82.9 - 93.1 [facility] [facility] LABORATORY MCH 29.9 27.5 [...] LABORATORY MPV 9.5 7.6 - 12.9 [facility] LABORATORY nRBC % Auto 0.0 % [facility] LABORATORY nRBC Abs Auto 0.000 0.000 - 0.000 x10(3)/[facility] LABORATORY Specimen Anatomical Collection Method Collection Time Receive d Time (Source) Location / / Volume Laterality Blood specimen 07/07/2017 5:30 PM 017 5:34 (specimen) EST PM EST Resulting Agency Comment Spec In Lab Yifan Perez MD HEMATOLOGY ORDERABLES Performing Organization Address City/State/[place] [address] Prepare Platelets, Apheresis (07/07/2017 5:00 PM EST) P athologist Signature Dispensed? Yes [facility] LABORATORY Specimen Anatomical Collection Method Collection Time Receive d Time (Source) Location / / Volume Laterality Blood specimen 07/07/2017 5:00 PM 017 4:58 (specimen) EST PM EST Daphne Shahid MD BLOOD BANK ORDERABLES Performing Organization Address City/State/[place] [address] Platelet count (07/07/2017 4:55 PM EST) athologist Signature Platelets 177 145 - 357 [facility] x10(3)/[facility] LABORATORY Plat Immature 1.5 0.0 - 7.4 [facility] % % [facility] LABORATORY Comment: Limitation of the Immature Platelet Frac tion (IPF)-May be less reliable when the platelet count is less than 27t333/u L due to statistical imprecision. The IPF [...] in a decreased state of production. References: [employer] The Clinical Value of the Immature Platelet Fraction (IPF) in Cell Recovery Document Number 10-1143 12/2010 [employer] The Role of the Imm ature [...] [place] [address] (ABNORMAL) Hemoglobin and Hematocrit, blood (07/07/2017 4:55 PM EST) P athologist Signature Hemoglobin 9.1 (L) 13.7 - 16.5 [facility] LABORATORY Comment: [...] [place] [address] (ABNORMAL) BLOOD GAS 2 ARTERIAL (07/07/2017 4:38 PM EST) Analysis Performed At Patho logist Time Signature pH Art 7.37 7.35 - [facility] 7.45 [facility] LABORATORY pCO2 Art 44 35 - 45 [facility] mmHg [facility] LABORATORY pO2 Art 322 (H) 85 - 104 [facility] [address] [facility] LABORATORY HCO3 Art 24.9 20.0 - [facility] 26.0 [facility] mmol/L [facility] LABORATORY BE Art -0.4 -3.0 - 3.0 [facility] mmol/L [facility] LABORATORY Hgb Blood Gas 10.1 (L) 13.7 - [facility] 16.5 gm/dL [facility] LABORATORY O2HB Art 98.7 (H) 94.0 - [facility] 97.0 % [facility] [...] Blood 5.7 (H) 3.5 - 5.0 mmol/L [facility] LABORATORY Comment: Please note: Patients with WBC >100,000 may have falsely elevated Potassium levels. Contact the Clinical Chemistry L aboratory if there are any questions. ICa Whole Blood 0.89 (Critical) 1.15 - 1.33 mmol/L [facility] LABORATORY Comment: Noted by instrumentation manager. Note: ??Total bilirubin higher than 20 m g/dL may lead to falsely low ionized calcium. CL Whole Blood 101 98 - 107 mmol/L [facility] LABORATORY Gluc Whole Bld 295 (H) 65 - 199 mg/dL [facility] [place] [...] Organization Address City/State/[place] [address] (ABNORMAL) BLOOD GAS 2 VENOUS (07/07/2017 4:06 PM EST) Analysis Performed At Patho logist Time Signature pH Cody 7.31 (L) 7.32 - [facility] 7.42 [facility] LABORATORY pCO2 Cody 47 41 - 51 [facility] LABORATORY pO2 Cody 53 (H) 25 - 40 [facility] LABORATORY HCO3 Cody 22.7 mmol/L [facility] LABORATORY BE Cody -3.7 mmol/L [facility] LABORATORY Hgb Blood Gas 10.2 (L) 13.7 - [facility] 16.5 gm/dL [facility] [...] Blood 5.3 (H) 3.5 - 5.0 mmol/L [facility] LABORATORY Comment: Please note: Patients with WBC >100,000 may have falsely elevated Potassium levels. Contact the Clinical Chemistry L aboratory if there are any questions. ICa Whole Blood 0.90 (Critical) 1.15 - 1.33 mmol/L [facility] LABORATORY Comment: Noted by instrumentation manager. Note: ??Total bilirubin higher than 20 m g/dL may lead to falsely low ionized calcium. CL Whole Blood 100 98 - 107 mmol/L [facility] LABORATORY Gluc Whole Bld 231 (H) 65 - 199 mg/dL [facility] LABORATORY Comment: Diabetes: >=200 mg/dL plus symp toms Lactate WB 1.1 0.5 - 2.2 mmol/L [facility] LABORATORY BGas Source Venous [facility] LABORATORY Specimen Anatomical Collection Method Collection Time Receive d Time (Source) Location / / Volume Laterality Blood specimen 07/07/2017 4:06 PM 017 4:06 (specimen) EST PM EST Daphne Shahid MD CHEMISTRY ORDERABLES Performing Organization Address City/State/[place] [address] (ABNORMAL) BLOOD GAS 2 ARTERIAL (07/07/2017 4:05 PM EST) Analysis Performed At Patho logist Time Signature pH Art 7.36 7.35 - [facility] 7.45 [facility] LABORATORY pCO2 Art 40 35 - 45 [facility] LABORATORY pO2 Art 282 (H) 85 - 104 [facility] LABORATORY HCO3 Art 22.1 20.0 - [facility] 26.0 [facility] mmol/L [facility] LABORATORY BE Art -3.4 (L) -3.0 - 3.0 [facility] mmol/L [facility] LABORATORY Hgb Blood Gas 10.2 (L) 13.7 - [facility] 16.5 gm/dL [facility] LABORATORY O2HB Art 98.4 (H) 94.0 - [facility] 97.0 % [facility] [...] Blood 5.4 (H) 3.5 - 5.0 mmol/L [facility] LABORATORY Comment: Please note: Patients with WBC >100,000 may have falsely elevated Potassium levels. Contact the Clinical Chemistry L aboratory if there are any questions. ICa Whole Blood 0.86 (Critical) 1.15 - 1.33 mmol/L [facility] LABORATORY Comment: Noted by instrumentation manager. Note: ??Total bilirubin higher than 20 m g/dL may lead to falsely low ionized calcium. CL Whole Blood 101 98 - 107 mmol/L [facility] LABORATORY Gluc Whole Bld 260 (H) 65 - 199 mg/dL [facility] [place] [...] Organization Address City/State/[place] [address] (ABNORMAL) BLOOD GAS 2 ARTERIAL (07/07/2017 2:29 PM EST) Analysis Performed At Patho logist Time Signature pH Art 7.43 7.35 - [facility] 7.45 [facility] LABORATORY pCO2 Art 36 35 - 45 [facility] LABORATORY pO2 Art 221 (H) 85 - 104 [facility] LABORATORY HCO3 Art 23.2 20.0 - [facility] 26.0 [facility] mmol/L [facility] LABORATORY BE Art -1.2 -3.0 - 3.0 [facility] mmol/L [facility] LABORATORY Hgb Blood Gas 13.9 13.7 - [facility] 16.5 gm/dL [facility] O2HB Art 97.8 (H) 94.0 - [facility] 97.0 % [facility] [...] Whole Bld 184 65 - 199 mg/dL [facility] [...] Organization Address City/State/[place] [address] Prepare Coag Factors (Non-Hemophilia) (07/07/2017 1:25 PM EST) P athologist Signature Dispensed? Yes [facility] LABORATORY Specimen Anatomical Collection Method Collection Time Receive d Time (Source) Location / / Volume Laterality Blood specimen 07/07/2017 1:25 PM 017 1:21 (specimen) EST PM EST Daphne Shahid MD BLOOD BANK ORDERABLES Performing Organization Address City/State/ZIP Code Phon e Number [address] Prepare RBC (07/07/2017 1:10 PM EST) P athologist Signature Dispensed? Yes [facility] LABORATORY Specimen Anatomical Collection Method Collection Time Receive d Time (Source) Location / / Volume Laterality Blood specimen 07/07/2017 1:10 PM 017 1:05 (specimen) EST PM EST Daphne Shahid MD BLOOD BANK ORDERABLES Performing Organization Address City/State/[place] [address] POCT Glucose (07/07/2017 11:56 AM EST) athologist Signature POC Glucose 188 65 - 199 [facility] mg/dL [facility] [...] [place] [address] POCT Glucose (07/07/2017 11:05 AM EST) athologist Signature POC Glucose 168 65 - 199 [facility] mg/dL [facility] LABORATORY Comment: [...] Address City/State/ZIP Code Phon e Number [address] POCT Glucose (07/07/2017 [...] Address City/State/ZIP Code Phon e Number [address] POCT Glucose (07/07/2017 [...] Address City/State/ZIP Code Phon e Number [address] POCT Glucose (07/07/2017 [...] Organization Address City/State/[place] [address] (ABNORMAL) POCT Glucose (07/07/2017 6:17 AM EST) athologist Signature POC Glucose 207 (H) 65 - 199 [facility] mg/dL [facility] LABORATORY Comment: [...] [place]/ZIP Code Phon e Number [address] Differential, Automated (07/07/2017 5:15 AM EST) athologist Signature Neutrophils % 69.7 % [facility] LABORATORY Neutr Abs (ANC) 5.32 1.70 - [facility] 6.10 [facility] x10(3)/[facility] LABORATORY Lymphocytes % 16.3 % [facility] LABORATORY Lymphocytes Abs 1.2 0.9 - 3.2 [facility] x10(3)/[facility] LABORATORY Monocytes % 10.5 % [facility] LABORATORY Monocyte Abs 0.8 0.3 - 0.9 [facility] x10(3)/[facility] LABORATORY Eosinophils % 2.5 % [facility] LABORATORY Eosinophils Abs 0.2 0.0 - 0.4 [facility] x10(3)/[facility] LABORATORY Basophils % 0.7 % [facility] LABORATORY Basophils Abs 0.0 0.0 - 0.1 [facility] x10(3)/[facility] LABORATORY Immature Gran % 0.30 % [facility] [...] 0.04 x10(3)/[facility] LABORATORY Specimen Anatomical Collection Method Collection Time Receive d Time (Source) Location / / Volume Laterality Blood specimen 07/07/2017 5:15 AM 017 5:34 (specimen) EST AM EST Resulting Agency Comment Spec In Lab Daphne Shahid MD HEMATOLOGY ORDERABLES Performing Organization Address City/State/[place] [address] (ABNORMAL) Hemogram (07/07/2017 5:15 AM EST) Analysis Performed At Patho logist Time Signature WBC 7.6 4.0 - 9.5 [facility] x10(3)/[facility] LABORATORY RBC 4.82 4.58 - [facility] 5.54 [facility] x10(6)/[facility] Hemoglobin 14.4 13.7 - [facility] 16.5 gm/dL [facility] Hematocrit 42.1 40.5 - [facility] 48.5 % [facility] LABORATORY MCV 87.3 82.9 - [facility] 93.1 [facility] LABORATORY MCH 29.9 27.5 - [facility] 32.[address] [facility] LABORATORY MCHC 34.2 32.0 - [facility] 35.7 gm/dL [facility] LABORATORY Platelets 188 145 - 357 [facility] x10(3)/[facility] LABORATORY RDWSD 45.1 (H) 36.0 - [facility] 45.0 [facility] RDWCV 14.3 (H) 11.4 - [facility] SU 13.8 % [facility] LABORATORY MPV 9.4 7.6 - 12.9 [facility] LABORATORY nRBC % Auto 0.0 % [facility] LABORATORY nRBC Abs Auto 0.000 0.000 - [facility] 0.[address] [facility] x10(3)/[facility] LABORATORY Specimen Anatomical Collection Method Collection Time Receive d Time (Source) Location / / Volume Laterality Blood specimen 07/07/2017 5:15 AM 017 5:34 (specimen) EST AM EST Resulting Agency Comment Spec In Lab Daphne Shahid MD HEMATOLOGY ORDERABLES Performing Organization Address City/[facility] [address] (ABNORMAL) APTT (07/07/2017 5:15 [...] [place] [address] Magnesium (07/07/2017 5:15 AM EST) P athologist Signature Magnesium 0.94 0.69 - 1.07 [facility] mmol/L [facility] LABORATORY Specimen Anatomical Collection Method Collection Time Receive d Time (Source) Location / / Volume Laterality Blood specimen 07/07/2017 5:15 AM 017 5:34 (specimen) EST AM EST Resulting Agency Comment Spec In Lab Daphne Shahid MD CHEMISTRY ORDERABLES Performing Organization Address City/[facility] [place] [address] (ABNORMAL) Basic Metabolic Panel (non-fasting) (07/07/2017 5:15 AM EST) athologist Signature Glucose Lvl 203 (H) 65 - 199 [facility] mg/dL [facility] LABORATORY [...] or in patients with acute kidney failure. [email or web address]/DHnkdep [email or web address]/DHMCnkf Specimen Anatomical Collection Method Collection Time Receive d Time (Source) Location / / Volume Laterality Blood specimen 07/07/2017 5:15 AM 017 5:34 (specimen) EST AM EST Resulting Agency Comment Spec In Lab Daphne Shahid MD CHEMISTRY ORDERABLES Performing Organization Address City/State/[place] [address] (ABNORMAL) Cardiac Enzymes (LEB/CGP) [...] additional sample may be indicated. Reference: Third [place] Definition of Myocardial Infarction. Journal of the [place] [employer] 2012;60:1581-98 CK, Total 88 0 - 200 unit/L [facility] LABORATORY Specimen Anatomical Collection Method Collection Time Receive d Time (Source) Location / / Volume Laterality Blood specimen 07/07/2017 5:15 AM 017 5:34 (specimen) EST AM EST Resulting Agency Comment Spec In Lab Daphne Shahid MD CHEMISTRY ORDERABLES Performing Organization Address City/State/[place] [address] POCT Glucose (07/07/2017 5:01 AM EST) P athologist Signature POC Glucose 182 65 - 199 [facility] mg/dL [facility] LABORATORY [...] Address City/State/ZIP Code Phon e Number [address] POCT Glucose (07/07/2017 4:08 AM EST) athologist Signature POC Glucose 199 65 - 199 [facility] mg/dL [facility] LABORATORY Comment: [...] [place] [address] POCT Glucose (07/07/2017 3:03 AM EST) athologist Signature POC Glucose 188 65 - 199 [facility] mg/dL [facility] LABORATORY Comment: Supplemental ranges: <140 mg/dL before meals <180 mg/dL all other times of the day Specimen Anatomical Collection Method Collection Time Receive d Time (Source) Location / / Volume Laterality Blood specimen 07/07/2017 3:03 AM 017 3:03 (specimen) EST AM EST aDphne Shahid MD POINT OF CARE TEST ORDERABLE S Performing Organization Address City/State/[place] [address] (ABNORMAL) POCT Glucose (07/07/2017 2:08 AM EST) athologist Signature POC Glucose 200 (H) 65 - 199 [facility] mg/dL [facility] LABORATORY Comment: [...] Organization Address City/State/[place] [address] (ABNORMAL) POCT Glucose (07/07/2017 1:31 AM EST) P athologist Signature POC Glucose 209 (H) 65 - 199 [facility] LABORATORY Comment: [...] Organization Address City/State/[place] [address] XR Chest PA or [...] Glucose 161 65 - 199 [facility] mg/dL [facility] LABORATORY Comment: [...] [place] [address] (ABNORMAL) APTT (07/07/2017 12:00 [...] Organization Address City/State/[place] [address] POCT Glucose (07/06/2017 9:55 PM EST) athologist Signature POC Glucose 109 65 - 199 [facility] LABORATORY Comment: [...] Address City/State/ZIP Code Phon e Number [address] POCT Glucose (07/06/2017 9:04 PM EST) athologist Signature POC Glucose 120 65 - 199 [facility] mg/dL [facility] LABORATORY Comment: [...] [place] [address] POCT Glucose (07/06/2017 7:45 PM EST) athologist Signature POC Glucose 158 65 - 199 [facility] mg/dL [facility] LABORATORY Comment: [...] [place] [address] Potassium (07/06/2017 7:40 PM EST) athologist Signature Potassium 3.9 3.5 - 5.0 [facility] mmol/L [facility] LABORATORY [...] [place] [address] (ABNORMAL) Cardiac Enzymes (LEB/CGP) [...] additional sample may be indicated. Reference: [employer] [place] Definition of Myocardial Infarction. Journal of the [place] [employer] 2012;60:1581-98 CK, Total 93 0 - 200 unit/L [facility] LABORATORY Specimen Anatomical Collection Method Collection Time Receive d Time (Source) Location / / Volume Laterality Blood specimen 07/06/2017 7:40 PM 017 7:52 (specimen) EST PM EST Resulting Agency Comment Spec In Lab Daphne Shahid MD CHEMISTRY ORDERABLES Performing Organization Address City/State/[place] [address] (ABNORMAL) POCT Glucose (07/06/2017 7:13 PM EST) athologist Signature POC Glucose 200 (H) 65 - 199 [facility] mg/dL [facility] LABORATORY Comment: Supplemental ranges: <140 mg/dL before meals <180 mg/dL all other times of the day Specimen Anatomical Collection Method Collection Time Receive d Time (Source) Location / / Volume Laterality Blood specimen 07/06/2017 7:13 PM 017 7:13 (specimen) EST PM EST Daphne Shahid MD POINT OF CARE TEST ORDERABLE S Performing Organization Address City/State/ZIP Code [facility] [place] [address] (ABNORMAL) APTT (07/06/2017 6:15 PM EST) athologist [facility] PTT 94 (H) 25 - 35 sec [...] Organization Address City/State/[place] [address] (ABNORMAL) POCT Glucose (07/06/2017 6:03 PM EST) athologist Signature POC Glucose 236 (H) 65 - 199 [facility] mg/dL [facility] LABORATORY [...] Organization Address City/State/[place] [address] (ABNORMAL) POCT Glucose (07/06/2017 [...] [place] [address] (ABNORMAL) POCT Glucose (07/06/2017 [...] Organization Address City/State/[place] [address] POCT Glucose (07/06/2017 2:59 [...] [place]/ZIP Code Phon e Number [address] (ABNORMAL) Cardiac Enzymes (LEB/CGP) [...] additional sample may be indicated. Reference: [employer] [place] Definition of Myocardial Infarction. Journal of the [place] [employer]iology 2012;60:1581-98 CK, Total 101 [...] [place] [address] POCT Glucose (07/06/2017 2:08 PM EST) P athologist Signature POC Glucose 192 65 - 199 [facility] mg/dL [facility] LABORATORY Comment: [...] Address City/State/ZIP Code Phon e Number [address] POCT Glucose (07/06/2017 1:04 PM EST) athologist Signature POC Glucose 162 65 - 199 [facility] mg/dL [facility] [...] Address City/State/ZIP Code Phon e Number [address] POCT Glucose (07/06/2017 12:05 PM EST) athologist Signature POC Glucose 196 65 - 199 [facility] mg/dL [facility] [...] Organization Address City/State/[place] [address] EKG 12 Lead (07/06/2017 12:00 PM EST) Component Value Ref Range Test Analysis Performed Pathologis t Method Time At Signature Ventricular rate 91 BPM MUSE SYSTEM Atrial Rate 91 BPM MUSE SYSTEM P-R Interval 140 ms MUSE SYSTEM QRS Duration 94 ms MUSE SYSTEM Q-T Interval 394 ms MUSE SYSTEM QTC Calculated 484 ms MUSE SYSTEM (Bezet) Calculated P [place] 36 degrees MUSE SYSTEM Calculated R [place] -19 degrees MUSE SYSTEM Calculated T [place] 104 degrees MUSE SYSTEM INTERPRETATION Normal sinus rhythm MUSE SYSTEM 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) ST & T wave abnormality, consider lateral ischemia Abnormal ECG When compared with ECG of 05-JUL-2017 20:39, No significant change was found Confirmed by MD Luci, Taurus Braun ([id number]) on 07/06/2017 5:07:33 PM Specimen Anatomical Collection Method Collection Time Receive d Time (Source) Location / / Volume Laterality 07/06/2017 12:00 07/06/2017 5:07 PM EST PM EST Daphne Shahid MD ECG ORDERABLES Performing Organization Address City/[facility]/ZIP Code Phon e Number MUSE SYSTEM ABORH Recheck Status (07/06/2017 12:00 PM EST) [facility] Method Time Signature ABORH Type Completed [facility] LABORATORY Specimen Anatomical Collection Method Collection Time Receive d Time (Source) Location / / Volume Laterality Blood specimen 07/06/2017 12:00 7 (specimen) PM EST 12:24 PM EST Resulting Agency Comment Spec In Lab Daphne Shahid MD BLOOD BANK ORDERABLES Performing Organization Address City/[facility]/[place] [address] Antibody screen (07/06/2017 12:00 PM EST) [facility] Method Time Signature Ab Screen Negative [facility] LABORATORY Expires at 07/09/2017 [facility] [id number] on: [facility] LABORATORY Specimen Anatomical Collection Method Collection Time Receive d Time (Source) Location / / Volume Laterality Blood specimen 07/06/2017 12:00 7 (specimen) PM EST 12:24 PM EST Resulting Agency Comment Spec In Lab Daphne Shahid MD BLOOD BANK ORDERABLES Performing Organization Address City/[facility]/[place] [address] ABO/Rh Typing (07/06/2017 12:00 [...] Organization Address City/State/ZIP Code Phon e Number [place] [id number]OSPITAL LAB[address] Prothrombin Time (07/06/2017 11:24 [...] Organization Address City/State/ZIP Code Phon e Number [place] [id number] HOSPITAL [address] (ABNORMAL) APTT (07/06/2017 11:24 [...] Address City/State/ZIP Code Phon e Number [address] POCT Glucose (07/06/2017 11:02 [...] Address City/State/ZIP Code Phon e Number [address] POCT Glucose (07/06/2017 [...] Address City/State/ZIP Code Phon e Number [address] POCT Glucose (07/06/2017 [...] [place] [address] (ABNORMAL) Cardiac Enzymes (LEB/CGP) (07/06/2017 8:10 AM EST) P athologist Signature Troponin-T 2.26 (H) 0.00 [facility] ng/mL [facility] LABORATORY [...] additional sample may be indicated. Reference: Third [place] Definition of Myocardial Infarction. Journal of the [place] College of [employer]iology 2012;60:1581-98 CK, Total 124 0 - 200 unit/L [facility] LABORATORY Specimen Anatomical Collection Method Collection Time Receive d Time (Source) Location / / Volume Laterality Blood specimen 07/06/2017 8:10 AM 017 8:23 (specimen) EST AM EST Resulting Agency Comment Spec In Lab Daphne Shahid MD CHEMISTRY ORDERABLES Performing Organization Address City/State/ZIP Code Phon e Number [place] [address] Magnesium (07/06/2017 8:10 AM EST) athologist Signature Magnesium 0.84 0.69 - 1.07 [facility] mmol/L [facility] LABORATORY Specimen Anatomical Collection Method Collection Time Receive d Time (Source) Location / / Volume Laterality Blood specimen 07/06/2017 8:10 AM 017 8:21 (specimen) EST AM EST Resulting Agency Comment Spec In Lab Daphne Shahid MD CHEMISTRY ORDERABLES Performing Organization Address City/State/ZIP Code Phon e Number [address] (ABNORMAL) Basic Metabolic Panel (non-fasting) (07/06/2017 8:10 AM EST) athologist Signature Glucose Lvl 199 65 - 199 [facility] mg/dL [facility] LABORATORY [...] or in patients with acute kidney failure. http://[employer]/DHnkdep http://[employer]/DHMCnkf Specimen Anatomical Collection Method Collection Time Receive d Time (Source) Location / / Volume Laterality Blood specimen 07/06/2017 8:10 AM 017 8:21 (specimen) EST AM EST Resulting Agency Comment Spec In Lab Daphne Shahid MD CHEMISTRY ORDERABLES Performing Organization Address City/[facility] [place]/ZIP Code Phon e Number [address] POCT Glucose (07/06/2017 7:34 AM EST) athologist Signature POC Glucose 198 65 - 199 [facility] mg[facility]dL [facility] LABORATORY Comment: [...] [place] [address] POCT Glucose (07/06/2017 7:03 AM EST) athologist Signature POC Glucose 181 65 - 199 [facility] mg/dL [facility] LABORATORY Comment: [...] [place] [address] XR Chest PA or [...] Signature POC Glucose 172 65 - 199 [facility] mg/dL [facility] LABORATORY [...] Address City/State/ZIP Code Phon e Number [address] POCT Glucose (07/06/2017 5:08 AM EST) athologist Signature POC Glucose 154 65 - 199 [place] mg/dL [facility] LABORATORY Comment: [...] Address City/State/ZIP Code Phon e Number [address] POCT Glucose (07/06/2017 4:05 [...] Address City/State/ZIP Code Phon e Number [address] POCT Glucose (07/06/2017 [...] [place]/ZIP Code Phon e Number [address] Potassium (07/06/2017 2:20 AM EST) athologist Signature Potassium 3.9 3.5 - 5.0 [facility]/L [facility] LABORATORY Comment: [...] [place]/ZIP Code Phon e Number [address] Differential, Automated (07/06/2017 2:20 AM EST) athologist Signature Neutrophils % 72.9 % [facility] LABORATORY Neutr Abs (ANC) 5.53 1.70 - [facility] 6.10 [facility] x10(3)/[facility] LABORATORY Lymphocytes % 16.4 % [facility] LABORATORY Lymphocytes Abs 1.2 0.9 - 3.2 [facility] x10(3)/[facility] LABORATORY Monocytes % 9.4 % [facility] LABORATORY Monocyte Abs 0.7 0.3 - 0.9 [facility] x10(3)/[facility] LABORATORY Eosinophils % 0.5 % [facility] LABORATORY Eosinophils Abs 0.0 0.0 - 0.4 [facility] x10(3)/[facility] LABORATORY Basophils % 0.4 % [facility] LABORATORY Basophils Abs 0.0 0.0 - 0.1 [facility] x10(3)/[facility] LABORATORY Immature Gran % 0.40 % [facility] [...] 0.04 x10(3)/[facility] MAR Y [facility] LABORATORY Specimen Anatomical Collection Method Collection Time Receive d Time (Source) Location / / Volume Laterality Blood specimen 07/06/2017 2:20 AM 017 2:33 (specimen) EST AM EST Resulting Agency Comment Spec In Lab Daphne Shahid MD HEMATOLOGY ORDERABLES Performing Organization Address City/State/[place] [address] (ABNORMAL) Hemogram (07/06/2017 2:20 AM EST) Analysis Performed At Patho logist Time Signature WBC 7.6 4.0 - 9.5 [facility] x10(3)/[facility] LABORATORY RBC 4.52 (L) 4.58 - [facility] 5.54 [facility] x10(6)/[facility] LABORATORY Hemoglobin 13.4 (L) 13.7 - [facility] 16.5 gm/dL [facility] LABORATORY Hematocrit 39.7 (L) 40.5 - [facility] 48.5 % [facility] LABORATORY MCV 87.8 82.9 - [facility] 93.1 [facility] LABORATORY MCH 29.6 27.5 - [facility] SU 32.[address] [facility] LABORATORY MCHC 33.8 32.0 - [facility] 35.7 gm/dL [facility] LABORATORY Platelets 189 145 - 357 [facility] x10(3)/[facility] LABORATORY RDWSD 45.6 (H) 36.0 - [facility] 45.0 [facility] LABORATORY RDWCV 14.3 (H) 11.4 - [facility] SU 13.8 % [facility] LABORATORY MPV 9.1 7.6 - 12.9 [facility] LABORATORY nRBC % Auto 0.0 % [facility] LABORATORY nRBC Abs Auto 0.000 0.000 - [place] DAVIS 0.000 [facility] x10(3)/[facility] LABORATORY Specimen Anatomical Collection Method Collection Time Receive d Time (Source) Location / / Volume Laterality Blood specimen 07/06/2017 2:20 AM 017 2:33 (specimen) EST AM EST Resulting Agency Comment Spec In Lab Daphne Shahid MD HEMATOLOGY ORDERABLES Performing Organization Address City/State/ZIP Code Phon e Number [address] (ABNORMAL) APTT (07/06/2017 2:20 [...] [place]/ZIP Code Phon e Number [address] POCT Glucose (07/06/2017 2:20 AM EST) P athologist Signature POC Glucose 115 65 - 199 [facility] mg/dL [facility] LABORATORY [...] [place] [address] (ABNORMAL) Cardiac Enzymes (LEB/CGP) (07/06/2017 2:20 AM EST) P athologist Signature Troponin-T 2.13 (H) 0.00 - [place] 0.00 ng/mL [facility] LABORATORY [...] additional sample may be indicated. Reference: Third [place] Definition of Myocardial Infarction. Journal of the [place] College of Cardiology 2012;60:1581-98 CK, Total 129 0 - 200 unit/L [facility] LABORATORY Specimen Anatomical Collection Method Collection Time Receive d Time (Source) Location / / Volume Laterality Blood specimen 07/06/2017 2:20 AM 017 2:33 (specimen) EST AM EST Resulting Agency Comment Spec In Lab Daphne Shahid MD CHEMISTRY ORDERABLES Performing Organization Address City/State/[place] [address] (ABNORMAL) Hemoglobin A1c (07/06/2017 2:20 AM EST) Analysis Performed At Patho logist Time Signature Hemoglobin A1C 6.8 (H) 4.3 - 5.6 [facility] LABORATORY [...] S67-74 Est Avg Gluc See note mg/dL [place] [...] into estimated average glucose values. ??Diabetes Care 2008:31(8):4981-6418. Specimen Anatomical Collection Method Collection Time Receive d Time (Source) Location / / Volume Laterality Blood specimen 07/06/2017 2:20 AM 017 2:34 (specimen) EST AM EST Resulting Agency Comment Spec In Lab Daphne Shahid MD CHEMISTRY ORDERABLES Performing Organization Address City/State/ZIP Code Phon e Number [facility], [facility] (ABNORMAL) Lipid Panel (07/06/2017 2:20 AM EST) Patholo gist Method Time Signature Chol, Total 150 <=239 [place] mg/dL [facility] LABORATORY Triglycerides 129 <=199 [facility] mg/dL [facility] LABORATORY HDL 32 (L) >=40 [place] mg/dL [facility] LABORATORY LDL Cholesterol 92 <=190 [facility] mg/dL [facility] LABORATORY Chol/HDL Ratio 4.7 ratio [facility] LABORATORY Lipid See Note [place] Interpretation [facility] LABORATORY Comment: Lipid management should be guided by a p atient? s ASCVD risk, goals and preferences. ACC/AHA Guidelines recommend high intens ity statin if clinical ASCVD or LDL greater than or equal to 190 mg/dL. http://[employer]/JAZ-JGP-Bartnldkr Adults aged 40-75 with LDL 70-189 mg/dL should have their 10 year ASCVD risk estimated with the ACC/AHA ASCVD risk es timator http://tools.acc.org/IULZA-Dvtv-Tovbavze r/ Statin should be discussed if risk [...] Address City/State/ZIP Code Phon e Number [address] POCT Glucose (07/06/2017 [...] Address City/State/ZIP Code Phon e Number [address] POCT Glucose (07/06/2017 12:06 [...] Organization Address City/State/[place] [address] (ABNORMAL) POCT Glucose (07/05/2017 [...] Organization Address City/State/[place] [address] (ABNORMAL) POCT Glucose (07/05/2017 [...] Organization Address City/State/[place] [address] (ABNORMAL) POCT Glucose (07/05/2017 9:02 PM EST) P athologist Signature POC Glucose 301 (H) 65 - 199 [facility] mg/dL [facility] LABORATORY [...] Organization Address City/State/[place] [address] XR Chest PA or [...] 474 ms MUSE SYSTEM (Bezet) Calculated P [place] 50 degrees MUSE SYSTEM Calculated R [place] -28 degrees MUSE SYSTEM Calculated T [place]ull[place] 90 degrees MUSE SYSTEM INTERPRETATION Sinus tachycardia [...] (H) 1.70 - [facility] 6.10 [facility] x10(3)/[facility] L LABORATORY Lymphocytes % 7.0 % [facility] LABORATORY Lymphocytes Abs 0.7 (L) 0.9 - 3.2 [facility] x10(3)/[facility] LABORATORY Monocytes % 3.7 % [facility] LABORATORY Monocyte Abs 0.4 0.3 - 0.9 [facility] x10(3)/[facility] LABORATORY Eosinophils % 0.1 % [facility] LABORATORY Eosinophils Abs 0.0 0.0 - 0.4 [facility] x10(3)/[facility] LABORATORY Basophils % 0.2 % [facility] LABORATORY Basophils Abs 0.0 0.0 - 0.1 [facility] x10(3)/[facility] LABORATORY Immature Gran % 0.60 [...] Organization Address City/State/[place] [address] (ABNORMAL) Hemogram (07/05/2017 8:20 PM EST) Analysis Performed At Patho logist Time Signature WBC 10.3 (H) 4.0 - 9.5 [facility] x10(3)/[facility] LABORATORY RBC 4.64 4.58 - [facility] 5.54 [facility] x10(6)/[facility] LABORATORY Hemoglobin 14.1 13.7 - [facility] 16.5 gm/dL [facility] LABORATORY Hematocrit 40.8 40.5 - [facility] 48.5 % [facility] LABORATORY MCV 87.9 82.9 - [place] 93.1 [facility] LABORATORY MCH 30.4 27.5 - [place] [facility] 32.[address] [facility] LABORATORY MCHC 34.6 32.0 - [place] ZHAOSU 35.7 gm/dL [facility] LABORATORY Platelets 204 145 - 357 [facility] x10(3)/[facility] LABORATORY RDWSD 46.1 (H) 36.0 - [place] [facility] 45.0 [facility] LABORATORY RDWCV 14.5 (H) 11.4 - [facility] SU 13.8 % [facility] LABORATORY MPV 9.7 7.6 - 12.9 [facility] LABORATORY nRBC % Auto 0.0 % [facility] LABORATORY nRBC Abs Auto 0.000 0.000 - [place] SU 0.000 [facility] x10(3)/[facility] LABORATORY Specimen Anatomical Collection Method Collection Time Receive d Time (Source) Location / / Volume Laterality Blood specimen 07/05/2017 8:20 PM 017 8:27 (specimen) EST PM EST Resulting Agency Comment Spec In Lab Daphne Shahid MD HEMATOLOGY ORDERABLES Performing Organization Address City/State/[place] [address] APTT (07/05/2017 8:20 PM [...] Organization Address City/State/[place] [address] (ABNORMAL) Cardiac Enzymes (LEB/CGP) [...] additional sample may be indicated. Reference: Third [place] Definition of Myocardial Infarction. Journal of the [place] College [employer]iology 2012;60:1581-98 CK, Total 149 0 - 200 unit/L [facility] LABORATORY Specimen Anatomical Collection Method Collection Time Receive d Time (Source) Location / / Volume Laterality Blood specimen 07/05/2017 8:20 PM 017 8:27 (specimen) EST PM EST Resulting Agency Comment Spec In Lab Daphne Shahid MD CHEMISTRY ORDERABLES Performing Organization Address City/State/[place] [address] (ABNORMAL) Magnesium (07/05/2017 8:20 PM EST) P athologist Signature Magnesium 0.68 (L) 0.69 - 1.07 [facility] mmol/L [facility] LABORATORY Specimen Anatomical Collection Method Collection Time Receive d Time (Source) Location / / Volume Laterality Blood specimen 07/05/2017 8:20 PM 017 8:27 (specimen) EST PM EST Resulting Agency Comment Spec In Lab Daphne Shahid MD CHEMISTRY ORDERABLES Performing Organization Address City/State/[place] [address] (ABNORMAL) Basic Metabolic Panel (non-fasting) (07/05/2017 8:20 PM EST) P athologist Signature Glucose Lvl 321 (H) 65 - 199 [facility] mg/dL [facility] LABORATORY [...] or in patients with acute kidney failure. http://[employer]/DHnkdep http://[employer]/DHMCnkf Specimen Anatomical Collection Method Collection Time Receive d Time (Source) Location / / Volume Laterality Blood specimen 07/05/2017 8:20 PM 017 8:27 (specimen) EST PM EST Resulting Agency Comment Spec In Lab Daphne Shahid MD CHEMISTRY ORDERABLES Performing Organization Address City/State/ZIP Code Phon e Number [address] (ABNORMAL) POCT Glucose (07/05/2017 7:32 PM EST) P athologist Signature POC Glucose 296 (H) 65 - 199 [facility] mg[facility]dL [facility] LABORATORY Comment: [...] [place] [address] CARDIAC CATHETERIZATION (07/05/2017 6:47 PM EST) Anatomical Region Laterality Modality Other Specimen (Source) Anatomical Location Collection Method / Collectio n Time Received Time / Laterality Volume Narrative 07/05/2017 7:27 PM EST ?[facility] ? Cardiac Cathete rization/Intervention Report ? Patient Name: Natalya, Gregory ? Procedure Date: 07/05/2017 ? A #: [id number] ? Primary Physician: Clarisa, Jet T ? Case #: [id number] ? File Name: [id number] ? Catheterization Order Number: [id number] ? [facility] ? Final Report [place], [place] ? Patient Name: ? Gregory Natalya ?ID#: ?[id number] ? : ?1945 ? Procedure Date: ? [...] presented with: non -STEMI (w/i 7 days). [place] ?Cardiovascular Society angina c lass was IV. 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 ? Jte Mckenna M.D. ? Electronically Signed by: Jte bunch M.D. ? Report Finalized: 07/05/2017 ??19:23 ? Report Last Ammended: 10/26/2017 ??10:29 ? Procedure Note Jet Mckenna MD - 10/26/2017Formatt ing of this note might be different from the original. [facility] Cardiac Catheterization/Intervention Re port Patient Name: Gregory Hoang Procedure Date: 07/05/2017 A #: [id number] Primary Physician: Jet Mckenna Case #: [id number] File Name: [id number] Catheterization Order Number: [id number] [facility] Lab [facility] Final Report [place], [place] Patient Name: Gregory Hoang ID#: [id number] : 1945 Procedure Date: July 05, [...] presented with: non-STEMI ( w/i 7 days). [place] Cardiovascular Society angina class was IV. No [...] site angiograph y and IABP insertion in dock or pier laborer. Jet Mckenna M.D. Electronically Signed by: [...] Mccollum ? (Age): 1945(72y) Med Rec#: ? [id number] ?Sex: ?M ? Site Loc: ? [facility] ?Ht / Wt: ??173(cm)/86(kg) Pt. Loc: ?CCU ? BSA: ?2 Study Date: ?? 07/05/2017 ?Pt. Type: Inpatient Tape: ? Referring: Daphne Shahid ([id number]) Referring: MANDA ALCANTAR Reading: Blade Preston ([id number]) Clinical Athletic Instructor: Dayami Paula BA, [facility] [...] E-wave Vmax ?0.8 ?m/sec ? MV deceleration yrew252 ?msec ? MV A-wave Vmax ?0.8 ?m/sec [...] ? Mid-Inferior ?Akinetic ? Mid-Inferoseptal ?Hypokinetic ? [place]-Septal ? Akinetic ? [place]-Anterior ? Hypokinetic ? [place]-Lateral ?Hypokinetic ? [place]-Inferior ? Akinetic ? [place]-Tip ?Akinetic ? This report has been electronically sign ed by: _ Blade Preston MD ? 07/06/2017 08 :53:15 Images [facility] Procedure Note Blade Preston MD - 07/06/2017Formatt ing of this note might be different from the original. Procedure: Transthoracic Echocardiogram Patient: NATALYA MCBRIDE(Age): [birth year]72y) Med Rec#: [id number] Sex: M Site Loc: [facility] Ht / Wt: 173(cm)/86(kg) Pt. Loc: CCU BSA: 2 Study Date: 07/05/2017 Pt. Type: Inpatie nt Tape: Referring: Daphne Shahid ([id number]) Referring: MANDA ALCANTAR Reading: Blade Preston ([id number]) Clinical Athletic Instructor: Dayami Paula BA, [facility] [...] MV E-wave Vmax 0.8 m/sec MV deceleration llwt775 msec MV A-wave Vmax 0.8 m/sec MV [...] Hypokinetic Mid-Posterolateral Hypokinetic Mid-Inferior Akinetic Mid-Inferoseptal Hypokinetic [place]-Septal Akinetic [place]-Anterior Hypokinetic [place]-Lateral Hypokinetic [place]-Inferior Akinetic [place]-Tip Akinetic This report has been electronically sign ed by: _ Blade Preston MD 07/06/2017 08:53:15 Images reviewed and interpretation verif ied [facility] Cardiac Ultrasound Laboratory Daphne Shahid MD ECHO ORDERABLES Differential, Automated (07/05/2017 4:55 PM EST) athologist Signature Neutrophils % 77.0 % [facility] LABORATORY Neutr Abs (ANC) 5.26 1.70 - [facility] 6.10 [facility] x10(3)/[facility] LABORATORY Lymphocytes % 13.3 % [facility] LABORATORY Lymphocytes Abs 0.9 0.9 - 3.2 [facility] x10(3)/[facility] LABORATORY Monocytes % 8.2 % [facility] LABORATORY Monocyte Abs 0.6 0.3 - 0.9 [facility] x10(3)/[facility] LABORATORY Eosinophils % 0.7 % [facility] LABORATORY Eosinophils Abs 0.0 0.0 - 0.4 [facility] x10(3)/[facility] LABORATORY Basophils % 0.4 % [facility] LABORATORY Basophils Abs 0.0 0.0 - 0.1 [facility] x10(3)/[facility] LABORATORY Immature Gran % 0.40 % [place] [...] 0.04 x10(3)/[facility] MAR Y [facility] LABORATORY Specimen Anatomical Collection Method Collection Time Receive d Time (Source) Location / / Volume Laterality Blood specimen 07/05/2017 4:55 PM 017 5:24 (specimen) EST PM EST Resulting Agency Comment Spec In Lab Daphne Shahid MD HEMATOLOGY ORDERABLES Performing Organization Address City/State/[place] [address] (ABNORMAL) Hemogram (07/05/2017 4:55 PM EST) Analysis Performed At Patho logist Time Signature WBC 6.8 4.0 - 9.5 [facility] x10(3)/[facility] LABORATORY RBC 4.67 4.58 - [facility] 5.54 [facility] x10(6)/[facility] LABORATORY Hemoglobin 14.0 13.7 - [facility] 16.5 gm/dL [facility] LABORATORY Hematocrit 41.0 40.5 - [facility] 48.5 % [facility] LABORATORY MCV 87.8 82.9 - [facility] 93.1 [facility] LABORATORY MCH 30.0 27.5 - [facility] 32[facility] [facility] LABORATORY MCHC 34.1 32.0 - [facility] 35.7 gm/dL [facility] LABORATORY Platelets 197 145 - 357 [facility] x10(3)/[facility] LABORATORY RDWSD 46.4 (H) 36.0 - [facility] 45.0 [facility] LABORATORY RDWCV 14.5 (H) 11.4 - [facility] % [facility] LABORATORY MPV 9.7 7.6 - 12.9 [facility] LABORATORY nRBC % Auto 0.0 % [facility] LABORATORY nRBC Abs Auto 0.000 0.000 - [place] [facility] [address] [facility] x10(3)/[facility] LABORATORY Specimen Anatomical Collection Method Collection Time Receive d Time (Source) Location / / Volume Laterality Blood specimen 07/05/2017 4:55 PM 017 5:24 (specimen) EST PM EST Resulting Agency Comment Spec In Lab Daphne Shahid MD HEMATOLOGY ORDERABLES Performing Organization Address City/State/[place] [address] (ABNORMAL) Cardiac Enzymes (LEB/CGP) [...] additional sample may be indicated. Reference: Third [place] Definition of Myocardial Infarction. Journal of the [place] [employer] 2012;60:1581-98 CK, Total 191 [...] [place]/ZIP Code Phon e Number [address] (ABNORMAL) pro-Brain Natriuretic Peptide (07/05/2017 4:55 PM EST) athologist Signature ProBNP 1,598 (H) <=125 [facility]mL [facility] LABORATORY Specimen Anatomical Collection Method Collection Time Receive d Time (Source) Location / / Volume Laterality Blood specimen 07/05/2017 4:55 PM 017 5:24 (specimen) EST PM EST Resulting Agency Comment Spec In Lab Daphne Shahid MD CHEMISTRY ORDERABLES Performing Organization Address City/[facility] [place]/ZIP Code Phon e Number [address] Magnesium (07/05/2017 4:55 PM EST) athologist Signature Magnesium 0.78 0.69 - 1.07 [facility] mmol/L [facility] LABORATORY Specimen Anatomical Collection Method Collection Time Receive d Time (Source) Location / / Volume Laterality Blood specimen 07/05/2017 4:55 PM 017 5:24 (specimen) EST PM EST Resulting Agency Comment Spec In Lab Daphne Shahid MD CHEMISTRY ORDERABLES Performing Organization Address City/[facility]/ZIP [facility] [place] [address] (ABNORMAL) Basic Metabolic Panel (non-fasting) (07/05/2017 4:55 PM EST) P athologist Signature Glucose Lvl 230 (H) 65 - 199 [facility] mg/dL [facility] LABORATORY [...] or in patients with acute kidney failure. http://[employer]/DHnkdep http://[employer]/[facility]MONDnkf Specimen Anatomical Collection Method Collection Time Receive d Time (Source) Location / / Volume Laterality Blood specimen 07/05/2017 4:55 PM 017 5:24 (specimen) EST PM EST Resulting Agency Comment Spec In Lab Daphne Shahid MD CHEMISTRY ORDERABLES Performing Organization Address City/[facility]/[place] [address] (ABNORMAL) APTT (07/05/2017 4:55 [...] Organization Address City/State/[place] [address] (ABNORMAL) POCT Glucose (07/05/2017 4:53 PM EST) P athologist Signature POC Glucose 208 (H) 65 - 199 [facility] mg/dL [facility] LABORATORY Comment: [...] [place] [address] EKG 12 Lead (07/05/2017 4:32 PM EST) Component Value Ref Range Test Analysis Performed Pathologis t Method Time At Signature Ventricular rate 97 BPM MUSE SYSTEM Atrial Rate 97 BPM MUSE SYSTEM P-R Interval 148 ms MUSE SYSTEM QRS Duration 96 ms MUSE SYSTEM Q-T Interval 364 ms MUSE SYSTEM QTC Calculated 462 ms MUSE SYSTEM (Bezet) Calculated P Gulliver 48 degrees MUSE SYSTEM Calculated R Gulliver -33 degrees MUSE SYSTEM Calculated T Gulliver 98 degrees MUSE SYSTEM INTERPRETATION Normal sinus [...]
Routine documented in this encounter Care Teams Finance Business Manager Relationship Specialty Start Date End Date Lovely Vicente MD PCP - General 04/16/[address] [place] [address] [address] [place] [address] documented as of this encounter
--- OUTSIDE RECORDS SUMMARY | 2022-04-01 10:10 | XMS_ITS | Encounter Summary ---
:1945 [place] [address] Care Team Providers Name Role Phone Lovely Vicente MD Primary Care Provider Reason for Visit Auth/Cert Specialty Diagnoses / Procedures Referred By Contact Refer red To Contact Diagnoses STEMI (ST elevation myocardial infarction) NSTEMI STEMI Procedures CARDIAC CATHETERIZATION NAYE IPI Referral ID Status Reason Start Date Expiration Date Visits Requ ested Visits Authorized [id number] 1 1 Encounter Details Date Type Department Care Team Description 07/07/2017 Anesthesia Event Main Operating Room Yifan Jaime MD [facility] [place] [address] [facility] Ginny Murray MD [facility] [address] [place] [address] [facility] [place] [address] Anesthesia Record Procedure Summary Procedure Name [...] Maza, Angela Mccurdy, left; 18 gauge; removed FIRE PILOT per policy/procedure; 07/11/17; 2355 Intra-Aortic Balloon 07/05/17; [...] Miller, Carrie L, Type: Cuffed; ETT Size: BENCH CARPENTER 8 mm; Santiago Blade: 2; Notes: Asleep, [...] Murray MD - 07/08/2017 5:08 PM EST [facility] [place] Department of Anesthesiology Post-procedure Note Patient: Don Fatima Procedure Summary Date Anesthesia Start Anesthesia Stop Room / Location 07/07/17 1335 1836 [facility] OR [facility] MAIN OR Procedure Diagnosis Surgeon Responsible Provider @CABG, USING ARTERIAL GRAFT;SINGLE ARTERIAL GRAFT (WRVU 33.75) (N/A Chest); @CABG, TWO VENOUS GRAFTS & ARTERIAL GRAFT (WRVU 7.93) (N/A Chest); ENDOSCOPIC HARVEST VEIN(S) FOR CABG (WRVU 0.31) (Right Leg) (CAD) Yuan Freitas MD Hartman, Gregg S, MD All Anesthesia Providers: Anesthesiologist: Yifan Perez MD Door Puller: Ginny Murray MD Most Recent Vitals: 07/08/17 [...] SETUP performed by Manny Mcknight MD at [facility] MAIN OR ??? PRO COLONOSCOPY, REMV LESN, SNARE 01/16/2014 COLONOSCOPY, POLYPECTOMY, REMOVAL LESION BY SNARE performed by Nohemi Jaimes MD at [facility] ENDOSCOPY ??? PRO THYROIDECTOMY 03/28/2013 THYROIDECTOMY, TOTAL OR COMPLETE performed by Manny Mcknight MD at [facility] MAIN OR Social History Substance [...] Zulma Dolan MD [facility] [place], [place] [address] (Wo rk) 05/28/2022 Laboratory Appointment Lab 05/28/2022 Office Visit Cardiology Zulma Dolan MD [facility] [place] [address] Liz Poole PA [facility] [place] [address] 06/10/2022 Office Visit Dermatology Laura Scherer MD [facility] [address]-DERMAT [place]LOG[place], [place] [address] (Wo rk) documented as [...] mg documented in this encounter Care Teams Route Driver Salesperson Relationship Specialty Start Date End Date Lovely Vicente MD PCP - General 04/16/[address] [place] [address] documented as of this encounter
--- OUTSIDE RECORDS SUMMARY | 2022-04-01 10:11 | XMS_ITS | Encounter Summary ---
:1945 Author Organization [facility] [place] [address] Care Team Providers Name Role Phone Lovely Vicente MD Primary Care Provider Reason for Visit Reason Comments Follow-up Encounter Details Date Type Department Care Team Description 06/03/2017 Office Visit Dermatology at [facility] benign nevi; Abdelrahman HOOPER MD History of melanoma; [address] [facility] History of dysplastic nevus; [place] [address] Skin exam for malignant neoplasm [phone] [facility]DER[facility] [place], [place] [address] Social History Tobacco Use Types [...] Dolan MD [facility] [place], [place] [address] (Wo rk) 05/28/2022 Laboratory Appointment Lab 05/28/2022 Office Visit Cardiology Zulma Dolan MD [facility] [place] [place] [address] Liz Poole PA [facility] [place] [address] 06/10/2022 Office Visit Dermatology Laura Scherer MD [facility] [address]-DERMAT [place], [place] [address] (Wo rk) documented as [...] skin documented in this encounter Care Teams Assault Boat Coxswain Relationship Specialty Start Date End Date Lovely Vicente MD PCP - General 04/16/15 [facility] [address] [place] [address] documented as of this encounter
--- OUTSIDE RECORDS SUMMARY | 2022-04-01 10:11 | XMS_ITS | Encounter Summary ---
:1945 [place] [address] Care Team Providers Name Role Phone Lovely Vicente MD Primary Care Provider Reason for Visit Reason Onset Date Comments Other 12/09/2016 RESULTS Encounter Details Date Type Department Care Team Description 12/09/2016 Telephone Dermatology at [facility] Halima Cadet MD Other (RESULTS) [address] [facility] [place] [address] [facility] [phone] [place], [place] [address] (Wo rk) Social History Tobacco [...] EDT Spoke with patient's , Kisha (personal pharmaceutical representative). I advised her Don's pathology results [...] back. She can be reached back at [phone] documented in this encounter Plan of Treatment Upcoming Encounters Date Type Specialty Care Team Description 05/28/2022 Appointment Cardiology Zulma Dolan MD [facility] [address] [place], [place] [address] (Wo rk) 05/28/2022 Laboratory Appointment Lab 05/28/2022 Office Visit Cardiology Zulma Dolan MD [facility] [place] [address] Liz Poole PA [facility] [place] [address] 06/10/2022 Office Visit Dermatology Laura Scherer MD [facility] [address]-DERMAT [place], [place] [address] (Wo rk) documented as of this encounter Visit Diagnoses Not on filedocumented in this encounter Care Teams Avionics Installer Relationship Specialty Start Date End Date Lovely Vicente MD PCP - General 04/16/[address] [place] [address] documented as of this encounter
--- OUTSIDE RECORDS SUMMARY | 2022-04-01 10:11 | XMS_ITS | Encounter Summary ---
:1945 Author Organization [facility] [place] [address] Care Team Providers Name Role Phone Lovely Vicente MD Primary Care Provider Reason for Visit Reason Onset Date Comments Medication Refill 12/24/2016 Encounter Details Date Type Department Care Team Description 12/24/2016 Refill Endocrinology at [facility] Luz Stallings MD [facility] [place] [address] ENDOCRINOLOGY DEPT [phone] [place], [place] [address] (Wo rk) Social History Tobacco [...] Dolan MD [facility] [place] [address] (Wo rk) 05/28/2022 Laboratory Appointment Lab 05/28/2022 Office Visit Cardiology Zulma Dolan MD [facility] [place] [address] Liz Poole PA [facility] [place] [address] 06/10/2022 Office Visit Dermatology Laura Scherer MD [facility] [address] GR-DERMAT [place], [place] [address] (Wo rk) documented as of this encounter Visit Diagnoses Not on filedocumented in this encounter Care Teams Engineering Designer Relationship Specialty Start Date End Date Lovely Vicente MD PCP - General 04/16/[address] [place], [place] [address] documented as of this encounter
--- OUTSIDE RECORDS SUMMARY | 2022-04-01 10:11 | XMS_ITS | Encounter Summary ---
:1945 Author Organization [facility] [place] [address] Care Team Providers Name Role Phone Lovely Vicente MD Primary Care Provider Encounter Details Date Type Department Care Team Description 07/05/2017 Telephone Cardiology Kim Galindo MD [facility] [place] [address] CARDIOLOGY DEPT [phone] [place], [place] [address] (Wo rk) Social History [...] 1:54pm Referring Provider: Ivania CROWELL) Patient Location: [facility] Presenting Symptoms per OSH: 72 year [...] infarct and elevated troponin, transport patient to [facility] for cath this afternoon and arrhythmia monitoring. Kim Galindo MD Scarfer Operator documented in this encounter Plan of Treatment Upcoming Encounters Date Type Specialty Care Team Description 05/28/2022 Appointment Cardiology Zulma Dolan MD [facility] [address] [place], [place] [address] (Wo rk) 05/28/2022 Laboratory Appointment Lab 05/28/2022 Office Visit Cardiology Zulma Dolan MD [facility] [place] [address] Liz Poole PA [facility] [place] [address] 06/10/2022 Office Visit Dermatology Laura Scherer MD [facility] [address] GR-DERMAT [place], [place] [address] (Wo rk) documented as of this encounter Visit Diagnoses Not on filedocumented in this encounter Care Teams Medical Receptionist Relationship Specialty Start Date End Date Lovely Vicente MD PCP - General 04/16/[address] [place] [address] documented as of this encounter
--- OUTSIDE RECORDS SUMMARY | 2022-04-01 10:11 | XMS_ITS | Encounter Summary ---
:1945 Author Organization [place] [address] Care Team Providers Name Role Phone Lovely Vicente MD Primary Care Provider Reason for Visit Reason Onset Date Comments Pre Procedure Call 12/02/2016 Encounter Details Date Type Department Care Team Description 12/02/2016 Telephone Dermatology at [facility] Mira James LPN Pre Procedure Call [address] [place] [address] Social History Tobacco Use Types Packs/Day [...] involves the peripheral ?biopsy edge. Spoke with iKsha Fatima with Don's prior permission by phone [...] Zulma Dolan MD [facility] [place], [place] [address] (Wo lissa) 05/28/2022 Laboratory Appointment Lab 05/28/2022 Office Visit Cardiology Zulma Dolan MD [facility] [place] [address] Liz Poole PA [facility] [place] [address] 06/10/2022 Office Visit Dermatology Laura Scherer MD [facility] [address] GR-DERMAT [place]LOG[place], [place] [address] (Wo rk) documented as of this encounter Visit Diagnoses Not on filedocumented in this encounter Care Teams Law Firm Consultant Relationship Specialty Start Date End Date Lovely Vicente MD PCP - General 04/16/[address] [place] [address] documented as of this encounter
--- OUTSIDE RECORDS SUMMARY | 2022-04-01 10:11 | XMS_ITS | Encounter Summary ---
:1945 Author Organization [facility] [place] [address] Care Team Providers Name Role Phone Lovely Vicente MD Primary Care Provider Encounter Details Date Type Department Care Team Description 09/03/2016 Office Visit Endocrinology at [facility] Maria Ines Stallings of [facility] [place] [address] [place] [address] ENDOCRINOLOGY DEPT [place], [place] [address] Social History Tobacco Use Types [...] to his magnesium pill. LUZ PRESCOTT MD Scout Leaserswaging machine operator Section of Endocrinology [facility] Luz Prescott MD - 09/03/2016 11:30 AM [...] nodes. Impression: No sonographic evidence of recurrence. ULZ PRESCOTT MD Scout Leaserswaging machine operator Section of Endocrinology [facility] documented in this encounter Plan of Treatment Upcoming Encounters Date Type Specialty Care Team Description 05/28/2022 Appointment Cardiology Zulma Dolan MD [facility] [address] [place], [place] [address] (Wo rk) 05/28/2022 Laboratory Appointment Lab 05/28/2022 Office Visit Cardiology Zulma Dolan MD [facility] [place] [address] Liz Poole PA [facility] [place] [address] 06/10/2022 Office Visit Dermatology Laura Scherer MD [facility] DR [address] GR-DERMAT [place], [place] [address] (Wo rk) documented as of this encounter Results Thyroglobulin (09/07/2017 2:41 PM EST) P athologist Signature Thyroglobulin 1.4 <=54.9 KATALINA RYAN ng/mL [facility] LABORATORY Comment: Thyroglobulin levels may [...] not been established. Assay performed using the [employer] Immulite T g immunometric assay (lowest detection [...] [facility]/ZIP Code Phon e Number [address] TSH (09/07/2017 2:41 PM EST) athologist Signature TSH 3.93 0.27 - 4.20 [facility] mlU/ML [facility] LABORATORY Specimen Anatomical Collection Method Collection Time Receive d Time (Source) Location / / Volume Laterality Blood specimen 09/07/2017 2:41 PM 018 2:46 (specimen) EST PM EST Resulting Agency Comment Spec In Lab Luz Prescott MD CHEMISTRY ORDERABLES Performing Organization Address City/[facility] Phon e Number [address] Thyroglobulin (09/03/2016 11:07 AM EST) athologist Signature Thyroglobulin <0.4 <=54.9 [facility] ng/mL [facility] LABORATORY Comment: Interpret with caution. [...] than those obtained with T4 withdrawal protocol (Morrison BR et al. J Clin Endo Metab 1999;84:3576-6041). Assay performed using the DPC Immulite T [...] [facility]/ZIP Code Phon e Number [address] TSH (09/03/2016 11:07 AM EST) P athologist Signature TSH 3.01 0.27 - 4.20 [facility] mcIU/mL [facility] LABORATORY Specimen Anatomical Collection Method Collection Time Receive d Time (Source) Location / / Volume Laterality Blood specimen 09/03/2016 11:07 7 (specimen) AM EST 11:22 AM EST Resulting Agency Comment Spec In Lab Luz Prescott MD CHEMISTRY ORDERABLES Performing Organization Address City/[facility]/[place] [address] documented in this encounter Visit Diagnoses Diagnosis Hx of papillary thyroid carcinoma Personal history of malignant neoplasm o f thyroid documented in this encounter Care Teams Installation Helper Relationship Specialty Start Date End Date Lovely Vicente MD PCP - General 04/16/[address] [place] [address] documented as of this encounter
--- OUTSIDE RECORDS SUMMARY | 2022-04-01 10:11 | XMS_ITS | Encounter Summary ---
:1945 Author Organization [facility] [place] [address] Care Team Providers Name Role Phone Lovely Vicente MD Primary Care Provider Encounter Details Date Type Department Care Team Description 07/10/2016 Telephone Dermatology at [facility] Rigoberto [place] III, [address] [place] [address] [facility] [phone] [facility] MARIE-DERMAT [place], [place] [address] (Wo rk) Social History Tobacco [...] Dolan MD [facility] [address] [place], [place] [address] (Wo rk) 05/28/2022 Laboratory Appointment Lab 05/28/2022 Office Visit Cardiology Zulma Dolan MD [facility] [place] [id number] Liz Poole PA [facility] [place] [address] 06/10/2022 Office Visit Dermatology Laura Scherer MD [facility] DR TE[address] MARIE-DERMAT [place], [place] [address] (Wo rk) documented as of this encounter Visit Diagnoses Not on filedocumented in this encounter Care Teams Customer Quality Engineer Relationship Specialty Start Date End Date Lovely Vicente MD PCP - General 04/16/15 [facility] [address] [place] [address] documented as of this encounter
--- OUTSIDE RECORDS SUMMARY | 2022-04-01 10:11 | XMS_ITS | Encounter Summary ---
:1945 Author Organization [facility] [place] [address] Care Team Providers Name Role Phone Lovely Vicente MD Primary Care Provider Reason for Visit Reason Comments Nevus excision dysplastic nevus mi d upper abdomen Encounter Details Date Type Department Care Team Description 12/03/2016 Procedure visit Dermatology at [facility] Dysplastic nevus of Road MD Adrián trunk [address] [facility] [address] [facility] [phone] [address]OLGY [place] [address] Social History Tobacco Use Types Packs/Day Years [...] Halima Cordero MD during the day at [phone] Nurse: Mira [phone] Amy After 5 PM and on weekends, please call the hospital number , and ask for the Interactive Project Manager carton forming machine helper. documented in this encounter Progress Notes Halima Cordero MD - 12/10/2016 5:41 PM EDT Gwendolyn, Excision shows scar, there is no residual of the severely dysplastic nevus. Please notify patient and check on wound healing. Thank you, DTB Halima Cordero MD - 12/03/2016 3:00 PM EDT Images from the original note were not included. Dermatology Procedure note: Attending: Halima Cordero MD Traveling Passenger Agent: Mira James LPN Referring MD: Rigoberto Garcia [...] to call the clinic or the on-call perinatal tech over the weekend. ??? Name of Procedure? [...] Cardiology Zulma Dolan MD [facility] [place], [place] [address] (Wo rk) 05/28/2022 Laboratory Appointment Lab 05/28/2022 Office Visit Cardiology Zulma Dolan MD [facility] [place] [address] Poole PA [facility] [place] [address] 06/10/2022 Office Visit Dermatology Laura Scherer MD [facility] DR TE[address] GR-DERMAT [place]LOG[place], [place] [address] (Wo rk) documented as [...] Component Value Ref Test Analysis Performed At [facility] Method Time Signature Surgical [id number] ?Location: [facility] The signing pathologist has (i) examined [...] Clinical Diagnosis: Dysplastic nevus, see previous pathology [id number] SPECIMEN PROCESSING A - Labeled/Fixative: Mid-upper abdomen, [...] Organization Address City/State/[place] [address] Specimen to Pathology (NON-OR) (12/03/2016 3:31 PM EDT) Specimen Anatomical Collection Method Collection Time Receive d Time (Source) Location / / Volume Laterality AP Specimen 12/03/2016 3:31 PM 7 6:27 EDT PM EDT Narrative [facility] - 12/03/2016 6:27 PM EDT Specimen requisition ordered. ??Separate Pathology report to follow Resulting Agency Comment Spec In Lab Halima Cordero MD PATHOLOGY/CYTOLOGY ORDERABLE S Performing Organization Address City/State/[place] [address] documented in this encounter Visit Diagnoses Diagnosis Dysplastic nevus of trunk Benign neoplasm of skin of trunk, except scrotum documented in this encounter Care Teams Delivery Assistant Relationship Specialty Start Date End Date Lovely Vicente MD PCP - General 04/16/15 [address] [place] [address] documented as of this encounter
--- OUTSIDE RECORDS SUMMARY | 2022-04-01 10:11 | XMS_ITS | Encounter Summary ---
:1945 [place] [address] Care Team Providers Name Role Phone Lovely Vicente MD Primary Care Provider Reason for Visit Auth/Cert Specialty Diagnoses / Procedures Referred By Contact Refer red To Contact Diagnoses STEMI (ST elevation myocardial infarction) NSTEMI STEMI Procedures CARDIAC CATHETERIZATION NAYE IPI Referral ID Status Reason Start Date Expiration Date Visits Requ ested Visits Authorized [id number] 1 1 Encounter Details Date Type Department Care Team Description 07/05/2017 Surgery Industrial Real Estate Agent Jet Guan, CARDIAC CATHETERIZATION Formerly [facility] [place] [address] CARDIOLOGY DEPT. [phone] [place], [place] [address] (Wo rk) Social History [...] this encounter Discharge Summaries Martha Teague S, BALING MACHINE TENDER - 07/14/2017 9:38 AM EST Inpatient - Discharge Summary Patient Name: Gregory Hoang Patient Age: 72 y.o. Birthdate: 1945 Language: Maldivian Race: White Ethnicity: Not nor Admit Date: [...] @ 1:20p Patient to follow-up with Manager Medicare Marketing/heart failure team in one week. An appointment will be made for you. You may call [phone] Patient to follow-up with Cardiac Surgery, Dr. Yuan Webber, in ~ 4 weeks with CXR, EKG. Inpatient Provider Contact Information: [facility] Section of Cardiac Surgery [facility] [address] FAX [phone] Discharge Diagnoses (Hospital Problems) Primary Diagnoses: CAD [...] by mouth daily. 90 tablet 3 07/05/2017 [id number] ??? ascorbic acid, vitamin C, (VITAMIN C) [...] hospital and ruled infor non-ST segment elevation [place]. This almost certainly represents the residual of [...] Hospital Course: Gregory Hoang was admitted to [facility] on 07/05/2017 via the Cardiology Service. During his hospital course, he was taken emergently to the liaison inspection laboratory assistant for an ongoing STEMI. An [...] not take or discontinue any prescription or bjnv-xqt-reiniuy medications without asking your doctor or pharmacist [...] Yuan Webber and/or the Cardiac Surgery Physician Foreign Student Adviser Team may be reached at . Weight: [...] Dr. Yuan Webber. You may use a [place] Track or treadmill but avoid any pulling [...] with the surgeon. Do not ride motorcycles, [employer] tractors or horses. Avoid the use of [...] should resume a low fat, low cholesterol, Swedish Heart Association Diet/Diabetic diet. Driving: No driving [...] @ 1:20p Patient to follow-up with Manager Medicare Marketing/heart failure team in one week. Appointment will be made for you. You may call [phone] Patient to follow-up with Cardiac Surgery, Dr. Yuan Webber, in ~ 4 weeks with CXR, EKG. Cardiac Rehabilitation: Gregory Hoang was seen today regarding participation in the outpatient Phase 2 Cardiac Rehabilitation at [facility]. The patient agrees to a referral to this program. The referral will be sent at discharge and the patient should be contacted by the Program within 1- 2 weeks from discharge. ?? Future Appointments and Orders Future Appointments Provider Department Dept Phone 09/07/2017 3:00 PM LAB, THREE L Lab 3L [facility] [phone] 09/07/2017 4:00 PM Luz Prescott MD Endocrinology at [facility] [phone] Future Orders Complete By Expires EKG 12 Lead [EKG1 Custom] 08/14/2017 02/13/2018 Process Instructions: Scheduling Instructions: Questions: Which DH location will this be performed?: [facility] Is a rhythm strip needed?: No If EKG Reason is Pre-op Evaluation, indicate diagnosis for surgery.: XR Chest PA & Lateral (Generic) [[id number] Custom] 08/14/2017 02/13/2018 Process Instructions: Scheduling Instructions: Questions: Where will study be performed?: [facility] Portable exam?: Reason for exam and clinical history: CABG x 3 Other pertinent information: Stat read required?: Date of injury if applicable: Requested Time: Referral to Cardiac Rehab [TUF115 Custom] As directed Process Instructions: If no progress note charted, please enter Clinical details in comments. Scheduling Instructions: Questions: My question or request is: s/p CABG. Cardiac rehab at [facility] Referral to Home Health - at DISCHARGE [HLT7780 CPT(R)] As directed Process Instructions: Scheduling Instructions: Comments: DOCUMENTATION FOR VNA SERVICES (INCLUDING THOSE PATIENTS WITH MEDICARE COVERAGE REQUIRING HOME VNA SERVICES AND/OR HOSPICE SERVICES) PATIENT'S LOCATION: Gregory Hoang [address] [place] [address] [place] [address] (home) Telephone Information: First Assistant Manager's Name: self In discussion with the attending physician, it is certified that this patient is under their care and that they, or a Nurse Practitioner, or Physician Foreign Student Adviser who is working directly with them, had [...] [facility] ([facility] [place] [facility] in [place] PHONE: [phone] FAX: [phone] RN orders: Cardiopulmonary assessment, incisional assessment, assess vital signs, assessment of rehab progress, medication management and effectiveness, home safety evaluation. Please draw INR if indicated and send result to:Dr Vicente [phone] PT ORDERS: Continue rehab for endurance, gait stability and strength with mobility and transfers. Home safety evaluation. Home exercise program if appropriate. Start of Care Date:24-48 hours after discharge SPECIAL INSTRUCTIONS: For any follow up questions, needs, or issues please call the Cardiac Surgery Office at [phone] FOR MEDICARE ONLY: (please delete this section [...] OR AFTER 07/17/2017 Signed: Martha Teague APRN [facility] Section of Cardiac Surgery [facility] [address] FAX [phone] Date: 07/14/2017 CC: MD Ivania Cr Betsy, PA [address] [place] [phone] documented in this encounter Discharge Instructions Discharge [...] not take or discontinue any prescription or oljc-idy-yuuddoa medications without asking your doctor or pharmacist [...] Yuan Webber and/or the Cardiac Surgery Physician Foreign Student Adviser Team may be reached at . ?? [...] Dr. Yuan Webber. You may use a [place] Track or treadmill but avoid any pulling [...] with the surgeon. Do not ride motorcycles, [employer] tractors or horses. Avoid the use of [...] should resume a low fat, low cholesterol, Swedish Heart Association Diet/Diabetic diet. ?? Driving: No [...] 1:20p ?? Patient to follow-up with Manager Medicare Marketing/heart failure team in one week. An appointment has been made for you, you can call [phone] ?? Patient to follow-up with Cardiac Surgery, Dr. Yuan Webber, in ~ 4 weeks with CXR, EKG. ? Cardiac Rehabilitation: Gregory Hoang??was seen today regarding participation in the outpatient Phase 2 Cardiac Rehabilitation at [facility]. ?? The patient agrees to a referral to this program.? The referral will be sent at discharge and the patient should be contacted by the Program within 1- 2 weeks from discharge. ? Future Appointments and Orders Future Appointments Provider Department Dept Phone ?? 09/07/2017 3:00 PM LAB, THREE L Lab 3L [facility] [phone] ?? 09/07/2017 4:00 PM Luz Prescott MD Endocrinology at [facility] [phone] Future Orders Complete By Expires ?? EKG 12 Lead [EKG1 Custom] 08/14/2017 02/13/2018 ?? Process Instructions: ? Scheduling Instructions: ? Questions: ? Which location will this be performed?: [facility] ?? Is a rhythm strip needed?: No ?? If EKG Reason is Pre-op Evaluation, indicate diagnosis for surgery.: ?? XR Chest PA & Lateral (Generic) [[id number] Custom] 08/14/2017 02/13/2018 ?? Process Instructions: ? Scheduling Instructions: ? Questions: ? Where will study be performed?: [facility] ?? Portable exam?: ?? Reason for exam and clinical history: CABG x 3 ?? Other pertinent information: ?? Stat read required?: ?? Date of injury if applicable: ?? Requested Time: ?? Referral to Cardiac Rehab [FZD143 Custom] As directed ? Process Instructions: ?? If no progress note charted, please enter Clinical details in comments. ?? Scheduling Instructions: ? Questions: ? My question or request is: s/p CABG. Cardiac rehab at [facility] ? Arrangements for VNA/home care: [...] RN - 07/14/2017 2:34 PM EST The patient/fundraising sale representative has been provided a list of Home Health Agencies/DME vendors which serve their preferred geographic area. A letter describing our affiliations was reviewed with them and theywere educated about their right to choose where referrals are placed. Patient requests referral to [facility]. PHONE: [phone] FAX: [phone] Expected date of discharge: 07/14 Referral routed to the Food Service Attendant for matching with agency/vendor and to provide [...] [facility] Management Pager [phone] minutes of this 35 minute visit was spent with the patient in counseling on diabetes and treatment plan, reviewing all glucose and insulin data as well as relevant laboratory results with the patient, and coordination of care on the inpatient unit including nursing and primary team. Zulma Andres RN - 07/14/2017 10:30 AM EST The patient/fundraising sale representative has been provided a list of Home Health Agencies/DME vendors which serve their preferred geographic area. A letter describing our affiliations was reviewed with them and theywere educated about their right to choose where referrals are placed. Patient requests referral to : Yasmani Munguia ([facility] [place] [facility]-is in [place]) PHONE: [phone] FAX: [phone]. Expected date of discharge: 07/14/17 Referral routed to the Food Service Attendant for matching with agency/vendor and to provide [...] hours. If BG remains greater than 240, szhxre58 units (no more than three times) &??call [...] [facility] Pager [phone] minutes of this 25 minute visit [...] of infiltration/extravasation Discussed plan of care with FOREST SCIENCE PROFESSOR and RN. Elevate exrtemity and apply intermittent Warm compresses. Name of MD contacted Dr. Shaw Brown 07/13/2017 @ 0655 Name of RN contacted Ale Rangel RN Name of Pharmacist if consulted NA Name of Plastics MD ( if consulted) NA (Mandatory photo for infiltrations/ extravasations scoring a stage 2 or greater, but recommended forstage 1)( include measuring tape and identifier in the photo) FUNDRAISING SALE REPRESENTATIVE CARING FOR THIS PATIENT WILL CONTINUE TO [...] measuring tape and identifier in the photo) FUNDRAISING SALE REPRESENTATIVE CARING FOR THIS PATIENT WILL CONTINUE TO [...] AM EST Cardiac Surgery Progress Note: ID: [id number] 72 year old male POD#6 s/p CABGx3 [...] discharge. ?? I have met with the patient/fundraising sale representative to discuss discharge planning needs. I have provided the [facility], Office of Care Management letter from the Emissions Technician pertaining to rehab referrals. I have also provided a letter describing our affiliations within the [facility] and educated them about their right to choose where referrals are placed. ?? I reviewed the different levels of rehab including SNF, swing, acute and LTAC with the patient/fundraising sale representative. ?? The patient/fundraising sale representative has been provided a list of facilities within their preferred geographic area. ?? I have requested that the patient/fundraising sale representative provide at least three choices for referral. ?? The patient/fundraising sale representative have requested referrals to: ?? 1. . ?? 2. [facility] ?? 3. More to be entered ?? Expected date of discharge: 07/14 Note routed to Food Service Attendant who will communicate referrals to facilities and [...] hours. If BG remains greater than 240, kfzkje62 units (no more than three times) & [...] hours. If BG remains greater than 240, pvkujh13 units (no more than three times) & call for new basal insulin orders. ??If less than 240 after two hours, give no insulin and resume prior schedule. Will continue to follow Katerin Azul APRN [facility] Endocrinology Diabetes Management Pager [phone] minutes of this 35 minute visit was spent with the patient in counseling on diabetes and treatment plan, reviewing all glucose and insulin data as well as relevant laboratory results with the patient, and coordination of care on the inpatient unit including nursing and primary team. Makayla Stevenson APRN - 07/12/2017 9:52 AM EST Cardiac Surgery Progress Note: ID: [id number] 72 year old male POD#5 s/p CABGx3 [...] 07/11/2017 7:18 PM EST Patient arrived from [facility]. VSS. MSI dressing pulled off [...] hours. If BG remains greater than 240, itdfbe94 units (no more than three times) & [...] AM EST Cardiac Surgery Progress Note: ID: [id number] 72 year old male POD#4 s/p CABGx3 [...] hours. If BG remains greater than 240, uchjha20 units (no more than three times) & [...] AM EST Cardiac Surgery Progress Note: ID: [id number] 72 year old male POD#3 s/p CABGx3 [...] Gas) No results found for: PHART, PO2ART, QRT2NYE Assessment/Plan: 72 year old male POD#3 s/p [...] Mami Thao - 07/09/2017 6:29 PM EST Assistant Hvac Mechanic Encounter Note Patient Name: Gregory Hoang : [id number] MR#: [id number] Admit Date: 07/05/2017 4:20 PM Hospital Day 4 days Narrative: Patient was sitting in chair, hugging heart pillow, opened his eyes, nodding to come into room Assessment: Patient was sleepy. Intervention and Outcome: Introduced service unit operator services and patient reached his hand out in appreciation. Follow-up: Assistant Hvac Mechanic remains available for support. Time in Direct [...] 10:45 AM EST Report given to staff weapons officer to cover care Maddison Cee PA - 07/09/2017 9:00 AM EST Cardiac Surgery Progress Note: ID: [id number] 72 year old male POD#2 s/p CABGx3 [...] Attending Surgeon on rounds. Signed: STEPHANIE Iqbal [facility] Section of Cardiac Surgery Date: 07/09/2017 [...] when IABP d/c'ed. Gretchen Carolina, PT Pager [phone] Maddison Cee PA - 07/08/2017 11:27 AM EST Cardiac Surgery Progress Note: ID: [id number] 72 year old male POD#1 s/p CABGx3 [...] Attending Surgeon on rounds. Signed: STEPHANIE Iqbal [facility] Section of Cardiac Surgery Date: 07/08/2017 [...] in place in R femoral. No hematoma. TIRE CLASSIFIER- Intact Psych- Anxious Skin- Dry, no peripheral [...] intact. IABP in place in R femoral. TIRE CLASSIFIER- Intact Psych- Anxious Skin- Dry, no peripheral [...] note for details. DAPHNE SHAHID MD Pager [phone] Jet Mckenna MD - 07/05/2017 6:48 PM EST Preliminary Cardiac Catheterization Procedure Note: Procedure(s) performed: Left heart cath, IABP insertion Access: Right JAVA LEAD ENGINEER-->8fr IABP A time-out was conducted prior [...] effect. Heparin gtt maintained. Pt transferred to liaison inspection laboratory assistant. documented in this encounter H&P Notes Daphne Shahid MD - 07/05/2017 6:08 PM EST CARDIOLOGY HISTORY & PHYSICAL EXAM Date of Admission: 07/05/2017 ( Hospital Day 0 days ) Responsible Attending: Daphne Shahid MD PCP: Lovely Vicente MD PCP#: [phone] Patient Active Problem List Diagnosis Code ??? [...] load with heparin drip and transferred to [facility]. While there, continued sob, question of chest pain. Stat TTE showing WMA diffusely and EF around 20%. No significant valvular disease. Taken to the liaison inspection laboratory assistant urgently for ongoing STEMI. [facility] Labs: INR 1.0 WBC 5.88 [...] monitor I/O - s/p lasix in the liaison inspection laboratory assistant, redose to aim net neg [...] Medicine, PGY-2 Cardiology S1, Team Pager # [phone] CARDIOLOGY ATTENDING NOTE Patient: Gregory Hoang Date [...] amenable for PCI. DAPHNE SHAHID MD Pager [phone] documented in this encounter Miscellaneous Notes Consult Note - Daphne hSahid MD - 07/14/2017 11:46 AM EST Heart Failure Service Inpatient Consult Note Gregory Hoang Date of : 1945 Age: 72 y.o. Today's date: 07/14/17 PCP: Lovely Vicente MD SENIOR DOT NET DEVELOPER: None Place of Service[facility] Reason for Consult: Dr. Webber has requested [...] following studies: EKG 07/14/17: NSR 75 bpm, INFORMATION SECURITY MANAGER anterior infarct, LAD CXR 07/11/17: FINDINGS: Sternotomy wires. The patient has been extubated, left chest tube removed, and Bowdon-Suzi catheter removed since the 07/07/2017 study. Atelectasis [...] was discussed with Zehra. Jaden Kelley MD Rating Specialist Pager [phone] CARDIOLOGY ATTENDING NOTE Patient: Gregory Hoang [...] follow-up in the heart failure clinic. DAPHNE SAHHID MD Pager [phone] Plan of Care - Alden Chavarria PTA [...] home with assist Alden Chavarria PTA Pager: [phone] Inpatient Physical Therapy Problem: Acute Rehab Services [...] sit/sit to supine -- Bed Mobility Goal, Dorado Level supervision required -- Bed Mobility Goal, [...] - 3 days -- Gait Training Goal, [place] Level supervision required -- Gait Training Goal, [...] days -- Transfer Training Goal, Activity Type uwn-mu-rwcml/tkbyz-oi-onw;ndj-mb-toyaz/bbkix-xc-hmk;toilet -- Transfer Train Goal, Dorado Level supervision required -- Transfer Training Goal, [...] keeping present for 2 days per family. Fence Installer Helper noted of frustrations, house keeping sent to room. Patient offered showered twice, refused. at bedside, frustrated that shower not complete, informed that patient had refused several times. requesting to see MINE EQUIPMENT DESIGN ENGINEER, paged sent to Martha, will come to bedside (middle of consult). not willing to wait, Martha notified that family had gone home. Encouraged to come for morning rounds a t 8am. Diabetes team at bedside - insulin adjustments made. Call cabello in reach. Continue to monitor. PLAN MOVING FORWARD: Ambulate, dressing changes BID, Please change drsg at 4am per Martha MINE EQUIPMENT DESIGN ENGINEER request. INDIVIDUALIZED FALL PREVENTION INTERVENTIONS: Patient-specific fall [...] levels on the lower side, 60ml of Delta juice given after a FS of 80. [...] 0502 Interdisciplinary Rounds/Family Conf Participants nurse case management;dietitian/nutrition services;nursing;occupational therapy;patient;pharmacy;physical therapy;physician Plan of Care - [...] monitoring required during toileting and ADLs]: RN FOREST SCIENCE PROFESSOR Surveillance [continuous indirect monitoring]: Barrett Monitor CPG [...] Anticipated Discharge Disposition: home with assist Pager: [phone] CLARISSA SEGAL, PT 07/12/2017 Physical Therapy Rehabilitation [...] to sit/sit to supine Bed Mobility Goal, Dorado Level supervision required Bed Mobility Goal, Additional Goal adheres to psternal precautions for transfer Goal: Gait Training Goal Stand Alone Therapy Goal Outcome: Ongoing (Interventions Implemented as Appropriate) 07/12/17 1225 Gait Training Goal Gait Training Goal, Date Established 07/12/17 Gait Training Goal, Time to Achieve 2 - 3 days Gait Training Goal, Dorado Level supervision required Gait Training Goal, Assist [...] 3 days Transfer Training Goal, Activity Type cug-ue-lzlwn/uyyww-xq-xzu;cer-qe-hmxkk/rqqda-tn-qei;toilet Transfer Train Goal, Dorado Level supervision required Transfer Training Goal, Additional Goal adheres to sternal precautions during transfer Consult Note - Octavia Vaughn RN - 07/12/2017 10:50 AM EST [facility] CARDIAC REHABILITATION Gregory Hoang was seen today regarding participation in the outpatient Phase 2 Cardiac Rehabilitation at [facility]. The patient agrees to a [...] IV site, amio to other piv and STRAP BUCKLER MACHINE at bedside to help assess, IV removed. [...] staff, he stood and marched in place. [place] weak, wanting to sit back down. Remained [...] Health/Prescription Coverage: Primary Insurance: MEDICARE Secondary Insurance: [employer] [place] Prescription Coverage: yes Preferred Pharmacy: [facility] Other: none Primary Care Provider: Lovely Vicente MD [phone] Patient/Caregiver Goals of Treatment:live and get my breath back Potential Needs for Transition of Care: Rehab/SNF: [facility] Home Health: NA DME: TBD Dialysis: na Community Resources: available Transportation: yes Other: none Anticipated Barriers to Discharge/Special Considerations: none Plan: Likely SNF Rehab before home A member of the Care Management team will continue to monitor progress, follow for continuity of care and assist with transition of care planning. ERLIN Wiess Pager: [phone] Consult Note - Katerin Azul RN - [...] potential to d/c gtt and start CF. rn long term care diabetes care: Medications - Outpatient treatment regimen recommendations pending based on the hospital course. Monitoring - continue BG tid ac & hs Diet - low fat/low carb diet Exercise - weight-bearing exercise 30 min/day, as tolerated Thank you for allowing us to provide care for your patient W/E coverage, Dr. Jeane Tatum, pager [phone] Katerin Azul APRN Endocrinology Diabetes Management Pager [phone] Plan of Care - Stephanie Godoy, RN [...] Operative Note Patient Name: Gregory Hoang : [id number] MR#: [id number] Case Date: 07/07/2017 Surgeon: Surgeon(s) and Role: * Yuan Webber MD - Primary * Michael Drake PA - Physician Foreign Student Adviser * Linda Flores PA - Physician Foreign Student Adviser Preoperative diagnosis: 3VD Postoperative diagnosis: CAD, severe [...] Operative Note Patient Name: Gregory Hoang : [id number] MR#: [id number] Case Date: 07/07/2017 Surgeon: Surgeon(s) and Role: * Yuan Webber MD - Primary * Michael Drake PA - Physician Foreign Student Adviser * Linda Flores PA - Physician Foreign Student Adviser Preoperative diagnosis: 3VD Postoperative diagnosis: CAD, severe [...] (reference Cardiac: ACS (Acute Coronary Syndrome) (Adult) [facility] 07/07/17621 Cardiac: ACS [...] major CV events such as , stroke, [place], repeat revascularization compared to PCI). In this [...] [employer] [facility] Cardiology S1 (Pager [phone]) Plan of Care - Emelia Ibarra RN [...] hospital and ruled infor non-ST segment elevation [place]. This almost certainly represents the residual of [...] [facility] ENDOSCOPY ??? PRO THYROIDECTOMY 03/28/2013 THYROIDECTOMY, TOTAL OR COMPLETE performed by Manny Mcknight MD at [facility] MAIN OR Social History: Social [...] with other involved physicians Yuan Webber MD [phone] Med Student Progress Note - Katty Hahn [...] major CV events such as , stroke, [place], repeat revascularization compared to PCI). In this [...] or BiPAP - s/p lasix in the liaison inspection laboratory assistant, was net -1.5L - s/p [...] insulin drip - hold metformin - f/u [facility] ?? #Home Meds - continue levothyroxine 175mcg - CPAP at night ?? # Routine - DVT PPx: heparin drip - Diet: Healthy heart diet, NPO at midnight for CABG tomorrow - Code Status: FULL - Dispo: CVCC Katty Hahn, M3 [facility] Cardiology S1 (Pager [phone]) Plan of Care - Stephanie Godoy RN - 07/06/2017 5:00 AM EST Problem: Patient Care Overview Goal: Plan of Care Review 07/06/17 5346 Coping/Psychosocial Plan Of Care Reviewed With patient;family [...] in urinal without difficulty. Lasix given in liaison inspection laboratory assistant, 1.4 L out at this [...] Outcome: Ongoing (Interventions Implemented as Appropriate) 07/06/17 1716 Cardiac: ACS (Acute Coronary Syndrome) Problems Assessed [...] Cardiology Zulma Dolan MD [facility] [place] [address] (Wo rk) 05/28/2022 Laboratory Appointment Lab 05/28/2022 Office Visit Cardiology Zulma Dolan MD [facility] [place] [address] Liz Poole PA [facility] [place] [address] 06/10/2022 Office Visit Dermatology Laura Scherer MD [facility] DR TEJA GR-DERMAT OLOGY [place], [place] [address] (Wo rk) Scheduled Orders [...] procedure are i n the results section. CAR WASH SUPERVISOR SCAN 07/15/2017 12:00 Res ults for [...] Routine 07/08/2017 4:00 Results f or this ([facility]) AM EST procedure are i n the [...] f or this ([facility]) PM EST procedure are i n the [...] f or this ([facility]) PM EST procedure are i n the [...] 2017 EXAMINATION: XR CHEST PA AND LATERAL ([facility] [employer]) CLINICAL HISTORY: CABG x 3 TECHNIQUE: PA [...] Teague APRN IMG DX ORDERABLES SCAN DOC: CAR WASH SUPERVISOR (07/15/2017 12:00 AM EST) Narrative 07/15/2017 [...] 199 [facility] mg/dL [facility] Comment: Supplemental [...] City/State/[place] [address] POCT Glucose (07/14/2017 7:52 AM EST) athologist Signature POC Glucose 126 65 - 199 [facility] mg/dL [facility] Comment: Supplemental ranges: <140 mg/dL before meals <180 mg/dL all other times of the day Specimen Anatomical Collection Method Collection Time Receive d Time (Source) Location / / Volume Laterality Blood specimen 07/14/2017 7:52 AM 017 7:52 (specimen) EST AM EST Yuan Webber MD POINT OF CARE TEST ORDERABLE S Performing Organization Address [facility]/[place] [address] (ABNORMAL) Prothrombin Time (07/14/2017 [...] Wilson APRN HEMATOLOGY ORDERABLES Performing Organization Address City/[facility] [place] [address] Potassium (07/14/2017 4:46 AM EST) athologist Signature Potassium 4.3 3.5 - 5.0 [facility] mmol/L [facility] Comment: Please note: ??Patients [...] Address City/State/ZIP Code Phon e Number [address] POCT Glucose (07/14/2017 4:34 AM EST) athologist Signature POC Glucose 115 65 - 199 [place] mg/dL [facility] Comment: Supplemental ranges: <140 mg/dL before meals <180 mg/dL all other times of the day Specimen Anatomical Collection Method Collection Time Receive d Time (Source) Location / / Volume Laterality Blood specimen 07/14/2017 4:34 AM 017 4:34 (specimen) EST AM EST Yuan Webber MD POINT OF CARE TEST ORDERABLE S Performing Organization Address City/[facility]/ZIP Code Phon e Number [address] POCT Glucose (07/13/2017 11:33 PM EST) athologist Signature POC Glucose 132 65 - 199 [place] mg/dL [facility] Comment: Supplemental ranges: <140 mg/dL before meals <180 mg/dL all other times of the day Specimen Anatomical Collection Method Collection Time Receive d Time (Source) Location / / Volume Laterality Blood specimen 07/13/2017 11:33 7 (specimen) PM EST 11:33 PM EST Yuan Webber MD POINT OF CARE TEST ORDERABLE S Performing Organization Address City/[facility]/ZIP Code Phon [place] [address] POCT Glucose (07/13/2017 9:25 PM EST) athologist Signature POC Glucose 121 65 - 199 [place] mg/dL [facility] Comment: Supplemental [...] Address City/State/ZIP Code Phon e Number [address] POCT Glucose (07/13/2017 4:55 PM EST) athologist Signature POC Glucose 79 65 - 199 [facility] mg/dL [facility] Comment: Supplemental [...] Address City/State/ZIP Code Phon e Number [address] POCT Glucose (07/13/2017 11:16 AM EST) athologist Signature POC Glucose 163 65 - 199 [facility] mg/dL [facility] Comment: Supplemental [...] City/State/ZIP Code Phon e Number [place] [id number] POCT Glucose (07/13/2017 8:07 AM EST) athologist Signature POC Glucose 96 65 - 199 [facility] mg/dL [facility] Comment: Supplemental [...] City/State/[place] [address] (ABNORMAL) Prothrombin Time (07/13/2017 [...] Organization Address City/State/[place] [address] (ABNORMAL) Basic Metabolic Panel (non-fasting) (07/13/2017 4:26 AM EST) athologist Signature Glucose Lvl 95 65 - 199 [facility] mg/dL [facility] Comment: [...] [facility] Estimated GFR 60 >=60 [facility] Comment: The reported eGFR should be multiplied b y 1.2 for patients. The MDRD is not an appropriate measure o f renal function for patients with body mass extremes or in patients with acute kidney failure. http://Cor[employer]/DHnkdep http://CorT[employer]/DHMCnkf Specimen Anatomical Collection Method Collection Time Receive d Time (Source) Location / / Volume Laterality Blood specimen 07/13/2017 4:26 AM 017 4:46 (specimen) EST AM EST Resulting Agency Comment Spec In Lab Makayla Wilson APRN CHEMISTRY ORDERABLES Performing Organization Address City/[facility]/ZIP Code Phon e Number [address] POCT Glucose (07/13/2017 3:52 AM EST) athologist Signature POC Glucose 93 65 - 199 [facility] mg/dL [facility] Comment: Supplemental [...] Address City/State/ZIP Code Phon e Number [address] POCT Glucose (07/13/2017 12:21 AM EST) athologist Signature POC Glucose 80 65 - 199 [facility] mg/dL [facility] Comment: Supplemental [...] Address City/State/ZIP Code Phon e Number [address] POCT Glucose (07/12/2017 8:22 PM EST) P athologist Signature POC Glucose 119 65 - 199 [place] mg/dL [facility] Comment: Supplemental ranges: <140 mg/dL before meals <180 mg/dL all other times of the day Specimen Anatomical Collection Method Collection Time Receive d Time (Source) Location / / Volume Laterality Blood specimen 07/12/2017 8:22 PM 017 8:22 (specimen) EST PM EST Yuan Webber MD POINT OF CARE TEST ORDERABLE S Performing Organization Address City/[facility]/ZIP Code Phon e Number [address] POCT Glucose (07/12/2017 4:02 PM EST) athologist Signature POC Glucose 114 65 - 199 [place] mg/dL [facility] Comment: Supplemental [...] Address City/State/ZIP Code Phon e Number [address] POCT Glucose (07/12/2017 11:28 AM EST) P athologist Signature POC Glucose 164 65 - 199 [facility] mg/dL [facility] Comment: Supplemental [...] Address City/State/ZIP Code Phon e Number [address] POCT Glucose (07/12/2017 7:34 AM EST) athologist Signature POC Glucose 109 65 - 199 [facility] Comment: Supplemental ranges: <140 mg/dL before meals <180 mg/dL all other times of the day Specimen Anatomical Collection Method Collection Time Receive d Time (Source) Location / / Volume Laterality Blood specimen 07/12/2017 7:34 AM 017 7:34 (specimen) EST AM EST Yuan Webber MD POINT OF CARE TEST ORDERABLE S Performing Organization Address City/State/[place] [address] (ABNORMAL) Basic Metabolic Panel (non-fasting) (07/12/2017 4:11 AM EST) athologist Signature Glucose Lvl 92 65 - 199 [facility] Comment: Diabetes: [...] or in patients with acute kidney failure. http://Cor[employer]/DHnkdep http://CorT[employer]/DHMCnkf Specimen Anatomical Collection Method Collection Time Receive d Time (Source) Location / / Volume Laterality Blood specimen 07/12/2017 4:11 AM 017 8:57 (specimen) EST AM EST Resulting Agency Comment [facility] CHEMISTRY ORDERABLES Performing Organization Address [facility] [place] [address] (ABNORMAL) Prothrombin Time (07/12/2017 [...] [place] STACIE HEMATOLOGY ORDERABLES Performing Organization Address City/[facility] Phon e Number [address] Potassium (07/12/2017 4:11 AM EST) P athologist Signature Potassium 3.8 3.5 - 5.0 [facility]/L [facility] Comment: Please note: ??Patients [...] Wilson APRN CHEMISTRY ORDERABLES Performing Organization Address City/[facility]/ZIP Code Phon e Number [address] POCT Glucose (07/12/2017 4:10 AM EST) athologist Signature POC Glucose 90 65 - 199 [facility] Comment: Supplemental ranges: <140 mg/dL before meals <180 mg/dL all other times of the day Specimen Anatomical Collection Method Collection Time Receive d Time (Source) Location / / Volume Laterality Blood specimen 07/12/2017 4:10 AM 017 4:10 (specimen) EST AM EST Yuan Webber MD POINT OF CARE TEST ORDERABLE S Performing Organization Address City/[facility]/ZIP Code Phon e Number [address] POCT Glucose (07/11/2017 11:57 PM EST) athologist Signature POC Glucose 98 65 - 199 [facility] Comment: Supplemental ranges: <140 mg/dL before meals <180 mg/dL all other times of the day Specimen Anatomical Collection Method Collection Time Receive d Time (Source) Location / / Volume Laterality Blood specimen 07/11/2017 11:57 7 (specimen) PM EST 11:57 PM EST Yuan Webber MD POINT OF CARE TEST ORDERABLE S Performing Organization Address City/[facility]/ZIP Code Phon e Number [address] POCT Glucose (07/11/2017 8:32 PM EST) P athologist Signature POC Glucose 146 65 - 199 [place] mg/dL [facility] Comment: Supplemental ranges: <140 mg/dL before meals <180 mg/dL all other times of the day Specimen Anatomical Collection Method Collection Time Receive d Time (Source) Location / / Volume Laterality Blood specimen 07/11/2017 8:32 PM 017 8:32 (specimen) EST PM EST Yuan Webber MD POINT OF CARE TEST ORDERABLE S Performing Organization Address City/State/ZIP Code Phon e Number [facility] [place] [place] [address] XR Chest PA & [...] e xtubated, left chest tube removed, and Bowdon-Suzi catheter removed since the study. Atelectasis at [...] e xtubated, left chest tube removed, and Bowdon-Suzi catheter removed since the study. Atelectasis at [...] (H) 65 - 199 [place] mg/dL [facility] Comment: Supplemental ranges: <140 mg/dL before meals <180 mg/dL all other times of the day Specimen Anatomical Collection Method Collection Time Receive d Time (Source) Location / / Volume Laterality Blood specimen 07/11/2017 4:05 PM 017 4:05 (specimen) EST PM EST Yuan Webber MD POINT OF CARE TEST ORDERABLE S Performing Organization Address City/State/[place] [address] POCT Glucose (07/11/2017 11:55 AM EST) athologist Signature POC Glucose 176 65 - 199 [place] mg/dL [facility] Comment: Supplemental ranges: <140 mg/dL before meals <180 mg/dL all other times of the day Specimen Anatomical Collection Method Collection Time Receive d Time (Source) Location / / Volume Laterality Blood specimen 07/11/2017 11:55 7 (specimen) AM EST 11:55 AM EST Yuan Webber MD POINT OF CARE TEST ORDERABLE S Performing Organization Address City/State/[place] [address] POCT Glucose (07/11/2017 7:53 AM EST) athologist Signature POC Glucose 189 65 - 199 [place] mg/dL [facility] Comment: Supplemental ranges: <140 mg/dL before meals <180 mg/dL all other times of the day Specimen Anatomical Collection Method Collection Time Receive d Time (Source) Location / / Volume Laterality Blood specimen 07/11/2017 7:53 AM 017 7:53 (specimen) EST AM EST Yuan Webber MD POINT OF CARE TEST ORDERABLE S Performing Organization Address City/[facility]/ZIP Code Phon e Number [address] POCT Glucose (07/11/2017 4:22 AM EST) athologist Signature POC Glucose 151 65 - 199 [place] mg/dL [facility] Comment: Supplemental ranges: <140 mg/dL before meals <180 mg/dL all other times of the day Specimen Anatomical Collection Method Collection Time Receive d Time (Source) Location / / Volume Laterality Blood specimen 07/11/2017 4:22 AM 017 4:22 (specimen) EST AM EST Yuan Webber MD POINT OF CARE TEST ORDERABLE S Performing Organization Address City/[facility] [place] [address] Potassium (07/11/2017 2:20 AM EST) athologist Signature Potassium 4.5 3.5 - 5.0 [facility]/L [facility] Comment: Please note: ??Patients [...] Webber MD CHEMISTRY ORDERABLES Performing Organization Address City/[facility]/ZIP Code Phon e Number [address] POCT Glucose (07/11/2017 12:17 AM EST) athologist Signature POC Glucose 162 65 - 199 [facility] Comment: Supplemental ranges: <140 mg/dL before meals <180 mg/dL all other times of the day Specimen Anatomical Collection Method Collection Time Receive d Time (Source) Location / / Volume Laterality Blood specimen 07/11/2017 12:17 7 (specimen) AM EST 12:17 AM EST Yuan Webber MD POINT OF CARE TEST ORDERABLE S Performing Organization Address City/State/[place] [address] POCT Glucose (07/10/2017 8:47 PM EST) athologist Signature POC Glucose 191 65 - 199 [place] mg/dL [facility] Comment: Supplemental ranges: <140 mg/dL before meals <180 mg/dL all other times of the day Specimen Anatomical Collection Method Collection Time Receive d Time (Source) Location / / Volume Laterality Blood specimen 07/10/2017 8:47 PM 017 8:47 (specimen) EST PM EST Yuan Webber MD POINT OF CARE TEST ORDERABLE S Performing Organization Address City/State/[place] [address] POCT Glucose (07/10/2017 4:06 PM EST) athologist Signature POC Glucose 131 65 - 199 [place] mg/dL [facility] Comment: Supplemental ranges: <140 mg/dL before meals <180 mg/dL all other times of the day Specimen Anatomical Collection Method Collection Time Receive d Time (Source) Location / / Volume Laterality Blood specimen 07/10/2017 4:06 PM 017 4:06 (specimen) EST PM EST Yuan Webber MD POINT OF CARE TEST ORDERABLE S Performing Organization Address City/State/[place] [address] POCT Glucose (07/10/2017 3:08 PM EST) athologist Signature POC Glucose 151 65 - 199 [place] mg/dL [facility] Comment: Supplemental [...] Address City/State/ZIP Code Phon e Number [address] POCT Glucose (07/10/2017 2:25 PM EST) athologist Signature POC Glucose 146 65 - 199 [place] mg/dL [facility] Comment: Supplemental ranges: <140 mg/dL before meals <180 mg/dL all other times of the day Specimen Anatomical Collection Method Collection Time Receive d Time (Source) Location / / Volume Laterality Blood specimen 07/10/2017 2:25 PM 017 2:25 (specimen) EST PM EST Yuan Webber MD POINT OF CARE TEST ORDERABLE S Performing Organization Address City/State/[place] [address] POCT Glucose (07/10/2017 1:23 PM EST) athologist Signature POC Glucose 166 65 - 199 [place] mg/dL [facility] Comment: Supplemental ranges: <140 mg/dL before meals <180 mg/dL all other times of the day Specimen Anatomical Collection Method Collection Time Receive d Time (Source) Location / / Volume Laterality Blood specimen 07/10/2017 1:23 PM 017 1:23 (specimen) EST PM EST Yuan Webber MD POINT OF CARE TEST ORDERABLE S Performing Organization Address City/State/[place] [address] POCT Glucose (07/10/2017 11:52 AM EST) athologist Signature POC Glucose 157 65 - 199 [place] mg/dL [facility] Comment: Supplemental ranges: <140 mg/dL before meals <180 mg/dL all other times of the day Specimen Anatomical Collection Method Collection Time Receive d Time (Source) Location / / Volume Laterality Blood specimen 07/10/2017 11:52 7 (specimen) AM EST 11:52 AM EST Yuan Webber MD POINT OF CARE TEST ORDERABLE S Performing Organization Address City/[facility]/ZIP Code Phon e Number [address] POCT Glucose (07/10/2017 11:01 AM EST) P athologist Signature POC Glucose 158 65 - 199 [place] mg/dL [facility] Comment: Supplemental ranges: <140 mg/dL before meals <180 mg/dL all other times of the day Specimen Anatomical Collection Method Collection Time Receive d Time (Source) Location / / Volume Laterality Blood specimen 07/10/2017 11:01 7 (specimen) AM EST 11:01 AM EST Yuan Webber MD POINT OF CARE TEST ORDERABLE S Performing Organization Address City/[facility]/ZIP Code Phon e Number [address] POCT Glucose (07/10/2017 9:54 AM EST) P athologist Signature POC Glucose 160 65 - 199 [place] mg/dL [facility] Comment: Supplemental ranges: <140 mg/dL before meals <180 mg/dL all other times of the day Specimen Anatomical Collection Method Collection Time Receive d Time (Source) Location / / Volume Laterality Blood specimen 07/10/2017 9:54 AM 017 9:54 (specimen) EST AM EST Yuan Wbeber MD POINT OF CARE TEST ORDERABLE S Performing Organization Address City/State/ZIP Code Phon e Number [address] POCT Glucose (07/10/2017 8:58 AM EST) P athologist Signature POC Glucose 183 65 - 199 [facility] mg/dL [facility] Comment: Supplemental [...] Address City/State/ZIP Code Phon e Number [address] POCT Glucose (07/10/2017 8:01 AM EST) athologist Signature POC Glucose 173 65 - 199 [place] mg/dL [facility] Comment: Supplemental [...] Address City/State/ZIP Code Phon e Number [address] POCT Glucose (07/10/2017 7:05 AM EST) athologist Signature POC Glucose 166 65 - 199 [place] mg/dL [facility] Comment: Supplemental ranges: <140 mg/dL before meals <180 mg/dL all other times of the day Specimen Anatomical Collection Method Collection Time Receive d Time (Source) Location / / Volume Laterality Blood specimen 07/10/2017 7:05 AM 017 7:05 (specimen) EST AM EST Yuan Webber MD POINT OF CARE TEST ORDERABLE S Performing Organization Address City/State/[place] [address] POCT Glucose (07/10/2017 6:00 AM EST) athologist Signature POC Glucose 162 65 - 199 [place] mg/dL [facility] Comment: Supplemental [...] Address City/State/ZIP Code Phon e Number [address] (ABNORMAL) Differential, Automated (07/10/2017 4:28 AM EST) [facility] Method Time Signature Neutrophils % 87.9 % [facility] Neutr Abs (ANC) 10.70 (H) 1.70 - [facility] 6.10 [facility] x10(3)/[facility] L LABORATORY Lymphocytes % 3.9 % [facility] Lymphocytes Abs 0.5 (L) 0.9 - 3.2 [facility] x10(3)/[facility] LABORATORY Monocytes % 7.0 % [facility] Monocyte Abs 0.8 0.3 - 0.9 [facility] x10(3)/[facility] LABORATORY Eosinophils % 0.3 % [facility] Eosinophils Abs 0.0 0.0 - 0.4 [facility] x10(3)/[facility] LABORATORY Basophils % 0.2 % [facility] Basophils Abs 0.0 0.0 - 0.1 [facility] x10(3)/[facility] LABORATORY Immature Gran [...] Gran Abs 0.08 (H) 0.00 - 0.04 x10(3)/[facility] LABORATORY Specimen Anatomical Collection Method Collection Time Receive d Time (Source) Location / / Volume Laterality Blood specimen 07/10/2017 4:28 AM 017 4:36 (specimen) EST AM EST Resulting Agency Comment Spec In Lab Yuan Webber MD HEMATOLOGY ORDERABLES Performing Organization Address City/[facility]/[place] [address] (ABNORMAL) Hemogram (07/10/2017 4:28 AM EST) Analysis Performed At Patho logist Time Signature WBC 12.2 (H) 4.0 - 9.5 [facility] x10(3)/[facility] LABORATORY RBC 3.31 (L) 4.58 - [place] 5.54 [facility] x10(6)/[facility] LABORATORY Hemoglobin 9.8 (L) 13.7 - [facility] 16.5 gm/dL [facility] Hematocrit 30.0 (L) 40.5 - [facility] 48.5 % [facility] MCV 90.6 82.9 - [facility] 93.1 [facility] LABORATORY MCH 29.6 27.5 - [facility] 32.1 pg [facility] MCHC 32.7 32.0 - [facility] 35.7 gm/dL [facility] Platelets 135 (L) 145 - 357 [facility] x10(3)/[facility] LABORATORY RDWSD 50.8 (H) 36.0 - [facility] 45.0 [facility] LABORATORY RDWCV 15.4 (H) 11.4 - [facility] 13.8 % [facility] MPV 10.0 7.6 - 12.9 [facility] LABORATORY nRBC % Auto 0.0 % [facility] nRBC Abs Auto 0.000 0.000 - [facility] 0.000 [facility] x10(3)/[facility] LABORATORY Specimen Anatomical Collection Method Collection Time Receive d Time (Source) Location / / Volume Laterality Blood specimen 07/10/2017 4:28 AM 017 4:36 (specimen) EST AM EST Resulting Agency Comment Spec In Lab Yuan Webber MD HEMATOLOGY ORDERABLES Performing Organization Address City/State/[place] [address] (ABNORMAL) Basic Metabolic Panel (non-fasting) (07/10/2017 4:28 AM EST) P athologist Signature Glucose Lvl 178 65 - 199 [facility] mg/dL [facility] Comment: [...] [facility] Estimated GFR 60 >=60 [facility] Comment: The reported eGFR should be multiplied b y 1.2 for patients. The MDRD is not an appropriate measure o f renal function for patients with body mass extremes or in patients with acute kidney failure. http://CorT[employer]/DHnkdep http://Cor[employer]/DHMCnkf Specimen Anatomical Collection Method Collection Time Receive d Time (Source) Location / / Volume Laterality Blood specimen 07/10/2017 4:28 AM 017 4:36 (specimen) EST AM EST Resulting Agency Comment Spec In Lab Yuan Webber MD CHEMISTRY ORDERABLES Performing Organization Address City/State/[place] [address] POCT Glucose (07/10/2017 4:26 AM EST) P athologist Signature POC Glucose 176 65 - 199 [facility] mg/dL [facility] Comment: Supplemental ranges: <140 mg/dL before meals <180 mg/dL all other times of the day Specimen Anatomical Collection Method Collection Time Receive d Time (Source) Location / / Volume Laterality Blood specimen 07/10/2017 4:26 AM 017 4:26 (specimen) EST AM EST Yuan Webber MD POINT OF CARE TEST ORDERABLE S Performing Organization Address City/[facility]/ZIP Code Phon e Number [address] (ABNORMAL) POCT Glucose (07/10/2017 3:06 AM EST) P athologist Signature POC Glucose 204 (H) 65 - 199 [place] mg/dL [facility] Comment: Supplemental ranges: <140 mg/dL before meals <180 mg/dL all other times of the day Specimen Anatomical Collection Method Collection Time Receive d Time (Source) Location / / Volume Laterality Blood specimen 07/10/2017 3:06 AM 017 3:06 (specimen) EST AM EST Yuan Webber MD POINT OF CARE TEST ORDERABLE S Performing Organization Address City/[facility]/[place] [address] (ABNORMAL) POCT Glucose (07/10/2017 2:10 AM EST) P athologist Signature POC Glucose 203 (H) 65 - 199 [facility] Comment: Supplemental [...] Address City/State/ZIP Code Phon e Number [address] POCT Glucose (07/10/2017 1:09 AM EST) P athologist Signature POC Glucose 196 65 - 199 [facility] mg/dL [facility] Comment: Supplemental [...] Address City/State/ZIP Code Phon e Number [address] POCT Glucose (07/10/2017 12:10 AM EST) P athologist Signature POC Glucose 173 65 - 199 [place] ZHAORYAN mg/dL [facility] Comment: Supplemental [...] Address City/State/ZIP Code Phon e Number [address] POCT Glucose (07/09/2017 11:01 PM EST) athologist Signature POC Glucose 140 65 - 199 [place]HAORYAN mg/dL [facility] Comment: Supplemental [...] Address City/State/ZIP Code Phon e Number [address] POCT Glucose (07/09/2017 10:05 PM EST) P athologist Signature POC Glucose 144 65 - 199 [facility] mg/dL [facility] Comment: Supplemental [...] Address City/State/ZIP Code Phon e Number [address] POCT Glucose (07/09/2017 9:31 PM EST) athologist Signature POC Glucose 121 65 - 199 [place]HA[place] mg/dL [facility] Comment: Supplemental ranges: <140 mg/dL before meals <180 mg/dL all other times of the day Specimen Anatomical Collection Method Collection Time Receive d Time (Source) Location / / Volume Laterality Blood specimen 07/09/2017 9:31 PM 017 9:31 (specimen) EST PM EST Yuan Webber MD POINT OF CARE TEST ORDERABLE S Performing Organization Address City/[facility]/ZIP Code Phon e Number [address] POCT Glucose (07/09/2017 9:03 PM EST) athologist Signature POC Glucose 98 65 - 199 [place]HA[place] mg/dL [facility] Comment: Supplemental ranges: <140 mg/dL before meals <180 mg/dL all other times of the day Specimen Anatomical Collection Method Collection Time Receive d Time (Source) Location / / Volume Laterality Blood specimen 07/09/2017 9:03 PM 017 9:03 (specimen) EST PM EST Yuan Webber MD POINT OF CARE TEST ORDERABLE S Performing Organization Address City/[facility]/ZIP Code Phon e Number [address] POCT Glucose (07/09/2017 8:09 PM EST) athologist Signature POC Glucose 117 65 - 199 [place] mg/dL [facility] Comment: Supplemental [...] Address City/State/ZIP Code Phon e Number [address] POCT Glucose (07/09/2017 5:40 PM EST) athologist Signature POC Glucose 155 65 - 199 [place] ZHAORYAN mg/dL [facility] Comment: Supplemental [...] Address City/State/ZIP Code Phon e Number [address] POCT Glucose (07/09/2017 4:24 PM EST) athologist Signature POC Glucose 164 65 - 199 [place] RY[place] mg/dL [facility] Comment: Supplemental [...] Address City/State/ZIP Code Phon e Number [address] POCT Glucose (07/09/2017 3:19 PM EST) athologist Signature POC Glucose 166 65 - 199 [place] RY[place] mg/dL [facility] Comment: Supplemental ranges: <140 mg/dL before meals <180 mg/dL all other times of the day Specimen Anatomical Collection Method Collection Time Receive d Time (Source) Location / / Volume Laterality Blood specimen 07/09/2017 3:19 PM 017 3:19 (specimen) EST PM EST Yuan Webber MD POINT OF CARE TEST ORDERABLE S Performing Organization Address City/State/[place] [address] POCT Glucose (07/09/2017 2:26 PM EST) athologist Signature POC Glucose 179 65 - 199 [place] ZHAORYAN mg/dL [facility] Comment: Supplemental ranges: <140 mg/dL before meals <180 mg/dL all other times of the day Specimen Anatomical Collection Method Collection Time Receive d Time (Source) Location / / Volume Laterality Blood specimen 07/09/2017 2:26 PM 017 2:26 (specimen) EST PM EST Yuan Webber MD POINT OF CARE TEST ORDERABLE S Performing Organization Address City/[facility]/[place] [address] (ABNORMAL) POCT Glucose (07/09/2017 1:29 PM EST) athologist Signature POC Glucose 210 (H) 65 - 199 [place] RY[place] mg/dL [facility] Comment: Supplemental ranges: <140 mg/dL before meals <180 mg/dL all other times of the day Specimen Anatomical Collection Method Collection Time Receive d Time (Source) Location / / Volume Laterality Blood specimen 07/09/2017 1:29 PM 017 1:29 (specimen) EST PM EST Yuan Webber MD POINT OF CARE TEST ORDERABLE S Performing Organization Address City/[facility]/[place] [address] POCT Glucose (07/09/2017 12:20 PM EST) athologist Signature POC Glucose 172 65 - 199 [place] ZHAORYAN mg/dL [facility] Comment: Supplemental [...] Address City/State/ZIP Code Phon e Number [address] POCT Glucose (07/09/2017 11:24 AM EST) P athologist Signature POC Glucose 156 65 - 199 [place] ZHAORYAN mg/dL [facility] Comment: Supplemental [...] Address City/State/ZIP Code Phon e Number [address] POCT Glucose (07/09/2017 11:11 AM EST) athologist Signature POC Glucose 172 65 - 199 [place] mg/dL [facility] Comment: Supplemental [...] City/State/ZIP Code Phon e Number [place], [place] [id number] [place] [address] POCT Glucose (07/09/2017 10:08 AM EST) P athologist Signature POC Glucose 176 65 - 199 [place] ZHAORYAN mg/dL [facility] Comment: Supplemental [...] Address City/State/ZIP Code [place] [address] POCT Glucose (07/09/2017 8:02 AM EST) P athologist Signature POC Glucose 178 65 - 199 [facility] mg/dL [facility] Comment: Supplemental ranges: <140 mg/dL before meals <180 mg/dL all other times of the day Specimen Anatomical Collection Method Collection Time Receive d Time (Source) Location / / Volume Laterality Blood specimen 07/09/2017 8:02 AM 017 8:02 (specimen) EST AM EST Yuan Webber MD POINT OF CARE TEST ORDERABLE S Performing Organization Address City/State/[place] [address] (ABNORMAL) BLOOD GAS 2 ARTERIAL (07/09/2017 5:37 AM EST) Analysis Performed At Patho logist Time Signature pH Art 7.36 7.35 - [facility] 7.45 [facility] pCO2 Art 38 35 - 45 [facility] LABORATORY pO2 Art 79 (L) 85 - 104 [facility] LABORATORY HCO3 Art 20.9 20.0 - [facility] 26.0 [facility] mmol/L [facility] LABORATORY BE Art -4.6 (L) -3.0 - 3.0 [facility] mmol/L [facility] Hgb Blood Gas 10.5 (L) 13.7 - [facility] 16.5 gm/dL [facility] O2HB Art 93.8 (L) 94.0 - [facility] 97.0 % [facility] COHB Art 0.3 % [facility] [...] Lactate WB 1.0 0.5 - 2.2 mmol/L [facility] FIO2 Art 40 % [facility]ORY PF Ratio Art 198 [facility] Specimen Anatomical Collection Method Collection Time Receive d Time (Source) Location / / Volume Laterality Blood specimen 07/09/2017 5:37 AM 017 5:37 (specimen) EST AM EST Yuan Webber MD CHEMISTRY ORDERABLES Performing Organization Address City/State/ZIP Code Phon e Number [address] POCT Glucose (07/09/2017 3:27 AM EST) athologist Signature POC Glucose 192 65 - 199 [facility] mg/dL [facility] Comment: Supplemental ranges: <140 mg/dL before meals <180 mg/dL all other times of the day Specimen Anatomical Collection Method Collection Time Receive d Time (Source) Location / / Volume Laterality Blood specimen 07/09/2017 3:27 AM 017 3:27 (specimen) EST AM EST Yuan Webber MD POINT OF CARE TEST ORDERABLE S Performing Organization Address City/[facility]/[place] [address] (ABNORMAL) Basic Metabolic Panel (non-fasting) (07/09/2017 2:30 AM EST) P athologist Signature Glucose Lvl 179 65 - 199 [facility] mg/dL [facility] Comment: [...] or in patients with acute kidney failure. [email or web address] Specimen Anatomical Collection Method Collection Time Receive d Time (Source) Location / / Volume Laterality Blood specimen Venous Draw / 07/09/2017 2:30 AM 2016 2:42 (specimen) Unknown EST AM EST Resulting Agency Comment Spec In Lab Yuan Webber MD CHEMISTRY ORDERABLES Performing Organization Address City/State/[place] [address] (ABNORMAL) Potassium (07/09/2017 2:30 AM EST) P athologist Signature Potassium 5.1 (H) 3.5 - 5.0 [facility] mmol/L [facility] Comment: Please note: ??Patients [...] City/State/[place] [address] (ABNORMAL) Hemogram (07/09/2017 2:30 AM EST) Analysis Performed At Patho logist Time Signature WBC 12.5 (H) 4.0 - 9.5 [facility] LABORATORY RBC 3.38 (L) 4.58 - [facility] 5.54 [facility] x10(6)/[facility] LABORATORY Hemoglobin 10.1 (L) 13.7 - [facility] 16.5 gm/dL [facility] Hematocrit 30.3 (L) 40.5 - [facility] 48.5 % [facility] MCV 89.6 82.9 - [facility] 93.1 [facility] LABORATORY MCH 29.9 27.5 - [place] 32.1 pg [facility] MCHC 33.3 32.0 - [facility] 35.7 gm/dL [facility] Platelets 127 (L) 145 - 357 [facility] LABORATORY RDWSD 49.3 (H) 36.0 - [place] 45.0 [facility] LABORATORY RDWCV 15.2 (H) 11.4 - [facility] 13.8 % [facility] MPV 9.9 7.6 - 12.9 [facility] LABORATORY nRBC % Auto 0.0 % [facility] LABOR[facility]ORY nRBC Abs Auto 0.000 0.000 - [place] 0.000 [facility] x10(3)/[facility] LABORATORY Specimen Anatomical Collection Method Collection Time Receive d Time (Source) Location / / Volume Laterality Blood specimen 07/09/2017 2:30 AM 017 2:41 (specimen) EST AM EST Resulting Agency Comment Spec In Lab Yuan Webber MD HEMATOLOGY ORDERABLES Performing Organization Address City/[facility]/[place] [address] POCT Glucose (07/09/2017 2:10 AM EST) P athologist Signature POC Glucose 169 65 - 199 [place] mg/dL [facility] Comment: Supplemental ranges: <140 mg/dL before meals <180 mg/dL all other times of the day Specimen Anatomical Collection Method Collection Time Receive d Time (Source) Location / / Volume Laterality Blood specimen 07/09/2017 2:10 AM 017 2:10 (specimen) EST AM EST Yuan Webber MD POINT OF CARE TEST ORDERABLE S Performing Organization Address City/[facility]/[place] [address] POCT Glucose (07/09/2017 1:01 AM EST) P athologist Signature POC Glucose 173 65 - 199 [place] ZHAORYAN mg/dL [facility] Comment: Supplemental ranges: <140 mg/dL before meals <180 mg/dL all other times of the day Specimen Anatomical Collection Method Collection Time Receive d Time (Source) Location / / Volume Laterality Blood specimen 07/09/2017 1:01 AM 017 1:01 (specimen) EST AM EST Yuan Webber MD POINT OF CARE TEST ORDERABLE S Performing Organization Address City/[facility]/[place] [address] Blood culture (07/09/2017 12:40 AM EST) Patholo gist Method Time Signature Blood Culture No growth [place]AL[place] at 5 days. [facility] Specimen Anatomical Collection Method Collection Time Receive d Time (Source) Location / / Volume Laterality Blood specimen STRUCTURE OF RIGHT 07/09/2017 12:40 3:58 (specimen) UPPER LIMB / AM EST AM EST Unknown Resulting Agency Comment Spec In Lab Yuan Webber MD MICROBIOLOGY - BLOOD ORDERAB LES Performing Organization Address City/State/[place] [address] Blood culture (07/09/2017 12:30 AM EST) Patholo gist Method Time Signature Blood Culture No growth [place] DAVIS at 5 days. [facility] Specimen Anatomical Collection Method Collection Time Receive d Time (Source) Location / / Volume Laterality Blood specimen STRUCTURE OF LEFT 07/09/2017 12:30 1211/2016 3:59 (specimen) UPPER LIMB / AM EST AM EST Unknown Resulting Agency Comment Spec In Lab Yuan Webber MD MICROBIOLOGY - BLOOD ORDERAB LES Performing Organization Address City/[facility]/[place] [address] (ABNORMAL) Urinalysis Microscopic Exam [...] Organization Address City/State/[place] [address] (ABNORMAL) Urinalysis with reflex Culture (07/09/2017 12:05 AM EST) [facility] gist Method Time Signature Glucose UA Negative Negative [facility] mg/dL [facility] Protein UA 30 (A) Negative [facility] Bilirubin UA Negative Negative [facility] Comment: Clinical correlation required for positi [...] LABORATORY Blood UA Moderate (A) Negative mg/dL [facility] Ketones UA Negative Negative mg/dL [facility] Nitrite UA Negative Negative [facility] Leukocytes UA Negative Negative [facility] LABORATORY Appearance UA Hazy (A) Clear [facility] LABOR[facility] Spec [place] UA 1.025 1.002 - 1.030 [facility] Color UA Yellow Yellow [facility] Culture Reflexed No [facility] Specimen (Source) Anatomical Collection Method Collection Time Re ceived Time Location / / Volume Laterality Urine specimen 07/09/2017 12:05 7 obtained via AM EST 12:39 AM EST indwelling urinary catheter (specimen) Resulting Agency Comment Spec In Lab Yuan Webber MD URINE ORDERABLES Performing Organization Address City/[facility]/[place] [address] POCT Glucose (07/08/2017 11:01 PM EST) P athologist Signature POC Glucose 191 65 - 199 [facility]/dL [facility] Comment: Supplemental [...] Address City/State/ZIP [place] [address] POCT Glucose (07/08/2017 10:04 PM EST) athologist Signature POC Glucose 198 65 - 199 [facility] mg/dL [facility] Comment: Supplemental ranges: <140 mg/dL before meals <180 mg/dL all other times of the day Specimen Anatomical Collection Method Collection Time Receive d Time (Source) Location / / Volume Laterality Blood specimen 07/08/2017 10:04 7 (specimen) PM EST 10:04 PM EST Yuan Webber MD POINT OF CARE TEST ORDERABLE S Performing Organization Address City/State/[place] [address] Prepare Albumin 5% in [...] Organization Address City/State/[place] [address] POCT Glucose (07/08/2017 8:28 PM EST) athologist Signature POC Glucose 195 65 - 199 [facility] mg/dL [facility] Comment: Supplemental ranges: <140 mg/dL before meals <180 mg/dL all other times of the day Specimen Anatomical Collection Method Collection Time Receive d Time (Source) Location / / Volume Laterality Blood specimen 07/08/2017 8:28 PM 017 8:28 (specimen) EST PM EST Yuan Webber MD POINT OF CARE TEST ORDERABLE S Performing Organization Address City/State/[place] [address] (ABNORMAL) POCT Glucose (07/08/2017 7:13 PM EST) P athologist Signature POC Glucose 220 (H) 65 - 199 [facility] Comment: Supplemental [...] Address City/State/ZIP Code Phon e Number [address] POCT Glucose (07/08/2017 5:04 PM EST) athologist Signature POC Glucose 147 65 - 199 [facility]/dL [facility] Comment: Supplemental ranges: <140 mg/dL before meals <180 mg/dL all other times of the day Specimen Anatomical Collection Method Collection Time Receive d Time (Source) Location / / Volume Laterality Blood specimen 07/08/2017 5:04 PM 017 5:04 (specimen) EST PM EST Yuan Webber MD POINT OF CARE TEST ORDERABLE S Performing Organization Address City/State/[place] [address] (ABNORMAL) BLOOD GAS 2 ARTERIAL (07/08/2017 4:13 PM EST) Analysis Performed At Patho logist Time Signature pH Art 7.38 7.35 - [facility] 7.45 [facility] pCO2 Art 36 35 - 45 [facility] LABORATORY pO2 Art 91 85 - 104 [facility] LABORATORY HCO3 Art 20.9 20.0 - [facility] 26.0 [facility] mmol/L [facility] LABORATORY BE Art -4.2 (L) -3.0 - 3.0 [facility] mmol/L [facility] Hgb Blood Gas 11.7 (L) 13.7 - [facility] 16.5 gm/dL [facility] O2HB Art 95.1 94.0 - [facility] 97.0 % [facility] COHB Art 0.6 % [facility] [...] Lactate WB 1.4 0.5 - 2.2 mmol/L [facility] FIO2 Art 40 % [facility] PF Ratio Art 228 [facility] Specimen Anatomical Collection Method Collection Time Receive d Time (Source) Location / / Volume Laterality Blood specimen 07/08/2017 4:13 PM 017 4:13 (specimen) EST PM EST Yuan Webber MD CHEMISTRY ORDERABLES Performing Organization Address City/State/[place] [address] POCT Glucose (07/08/2017 4:01 PM EST) P athologist Signature POC Glucose 148 65 - 199 [facility] mg/dL [facility] Comment: Supplemental [...] Address City/State/ZIP Code Phon e Number [address] POCT Glucose (07/08/2017 3:21 PM EST) athologist Signature POC Glucose 118 65 - 199 [place] ZHAORY[place] mg/dL [facility] Comment: Supplemental ranges: <140 mg/dL before meals <180 mg/dL all other times of the day Specimen Anatomical Collection Method Collection Time Receive d Time (Source) Location / / Volume Laterality Blood specimen 07/08/2017 3:21 PM 017 3:21 (specimen) EST PM EST Yuan Webber MD POINT OF CARE TEST ORDERABLE S Performing Organization Address City/[facility]/ZIP Code Phon e Number [address] POCT Glucose (07/08/2017 2:01 PM EST) athologist Signature POC Glucose 129 65 - 199 [place] ZHAORY[place] mg/dL [facility] Comment: Supplemental ranges: <140 mg/dL before meals <180 mg/dL all other times of the day Specimen Anatomical Collection Method Collection Time Receive d Time (Source) Location / / Volume Laterality Blood specimen 07/08/2017 2:01 PM 017 2:01 (specimen) EST PM EST Yuan Webber MD POINT OF CARE TEST ORDERABLE S Performing Organization Address City/State/[place] [address] POCT Glucose (07/08/2017 11:53 AM EST) athologist Signature POC Glucose 156 65 - 199 [place] RY[place] mg/dL [facility] Comment: Supplemental ranges: <140 mg/dL before meals <180 mg/dL all other times of the day Specimen Anatomical Collection Method Collection Time Receive d Time (Source) Location / / Volume Laterality Blood specimen 07/08/2017 11:53 7 (specimen) AM EST 11:53 AM EST Yuan Webber MD POINT OF CARE TEST ORDERABLE S Performing Organization Address City/State/[place] [address] POCT Glucose (07/08/2017 11:04 AM EST) P athologist Signature POC Glucose 181 65 - 199 [facility]dL [facility] Comment: Supplemental ranges: <140 mg/dL before meals <180 mg/dL all other times of the day Specimen Anatomical Collection Method Collection Time Receive d Time (Source) Location / / Volume Laterality Blood specimen 07/08/2017 11:04 7 (specimen) AM EST 11:04 AM EST Yuan Webber MD POINT OF CARE TEST ORDERABLE S Performing Organization Address City/[facility]/[place] [address] (ABNORMAL) POCT Glucose (07/08/2017 9:24 AM EST) athologist Signature POC Glucose 203 (H) 65 - 199 [facility] Comment: Supplemental ranges: <140 mg/dL before meals <180 mg/dL all other times of the day Specimen Anatomical Collection Method Collection Time Receive d Time (Source) Location / / Volume Laterality Blood specimen 07/08/2017 9:24 AM 017 9:24 (specimen) EST AM EST Yuan Webber MD POINT OF CARE TEST ORDERABLE S Performing Organization Address City/[facility]/[place] [address] APTT (07/08/2017 8:40 AM [...] Organization Address City/State/[place] [address] (ABNORMAL) Prothrombin Time (07/08/2017 [...] Webber MD HEMATOLOGY ORDERABLES Performing Organization Address City/[facility]/[place] [address] (ABNORMAL) POCT Glucose (07/08/2017 7:38 AM EST) P athologist Signature POC Glucose 232 (H) 65 - 199 [facility] mg/dL [facility] Comment: Supplemental ranges: <140 mg/dL before meals <180 mg/dL all other times of the day Specimen Anatomical Collection Method Collection Time Receive d Time (Source) Location / / Volume Laterality Blood specimen 07/08/2017 7:38 AM 017 7:38 (specimen) EST AM EST Yuan Webber MD POINT OF CARE TEST ORDERABLE S Performing Organization Address City/[facility]/[place] [address] (ABNORMAL) POCT Glucose (07/08/2017 7:07 AM EST) athologist Signature POC Glucose 234 (H) 65 - 199 [facility]dL [facility] Comment: Supplemental ranges: <140 mg/dL before meals <180 mg/dL all other times of the day Specimen Anatomical Collection Method Collection Time Receive d Time (Source) Location / / Volume Laterality Blood specimen 07/08/2017 7:07 AM 017 7:07 (specimen) EST AM EST Yuan Webber MD POINT OF CARE TEST ORDERABLE S Performing Organization Address City/State/[place] [address] (ABNORMAL) POCT Glucose (07/08/2017 6:04 AM EST) athologist Signature POC Glucose 225 (H) 65 - 199 [facility]dL [facility] Comment: Supplemental ranges: <140 mg/dL before meals <180 mg/dL all other times of the day Specimen Anatomical Collection Method Collection Time Receive d Time (Source) Location / / Volume Laterality Blood specimen 07/08/2017 6:04 AM 017 6:04 (specimen) EST AM EST Yuan Webber MD POINT OF CARE TEST ORDERABLE S Performing Organization Address City/[facility]/[place] [address] (ABNORMAL) POCT Glucose (07/08/2017 5:31 AM EST) athologist Signature POC Glucose 216 (H) 65 - 199 [facility] mg/dL [facility] Comment: Supplemental ranges: <140 mg/dL before meals <180 mg/dL all other times of the day Specimen Anatomical Collection Method Collection Time Receive d Time (Source) Location / / Volume Laterality Blood specimen 07/08/2017 5:31 AM 017 5:31 (specimen) EST AM EST Yuan Webber MD POINT OF CARE TEST ORDERABLE S Performing Organization Address City/State/[place] [address] (ABNORMAL) POCT Glucose (07/08/2017 4:52 AM EST) P athologist Signature POC Glucose 257 (H) 65 - 199 [facility] mg/dL [facility] Comment: Supplemental [...] City/State/[place] [address] (ABNORMAL) BLOOD GAS 2 ARTERIAL (07/08/2017 4:04 AM EST) Analysis Performed At Patho logist Time Signature pH Art 7.30 (L) 7.35 - [facility] 7.45 [facility] pCO2 Art 41 35 - 45 [facility] LABORATORY pO2 Art 83 (L) 85 - 104 [facility] LABORATORY HCO3 Art 19.6 (L) 20.0 - [facility] 26.0 [facility] mmol/[facility] LAB[facility]AT[facility] BE Art -6.8 (L) -3.0 - 3.0 [facility] mmol/L [facility] Hgb Blood Gas 12.2 (L) 13.7 - [facility] 16.5 gm/dL [facility] O2HB Art 93.5 (L) 94.0 - [facility] 97.0 % [facility] COHB Art 0.4 % [facility] Comment: Noted by reed or wind instrument repairer. FIO2 Art 40 % [facility] PF Ratio Art 208 [facility] Specimen Anatomical Collection Method Collection Time Receive d Time (Source) Location / / Volume Laterality Blood specimen 07/08/2017 4:04 AM 017 4:04 (specimen) EST AM EST Daphne Shahid MD CHEMISTRY ORDERABLES Performing Organization Address City/State/ZIP Code Phon e Number [address] Scan, Peripheral Blood (07/08/2017 [...] Address City/State/ZIP Code Phon e Number [address] (ABNORMAL) Differential, Automated (07/08/2017 4:00 AM EST) Patholo gist Method Time Signature Neutrophils % 85.4 % [facility] Neutr Abs (ANC) 16.07 (H) 1.70 - [facility] 6.10 [facility] x10(3)/[facility] L LABORATORY Lymphocytes % 3.5 % [facility] Lymphocytes Abs 0.6 (L) 0.9 - 3.2 [facility] x10(3)/[facility] LABORATORY Monocytes % 10.4 % [facility] Monocyte Abs 2.0 (H) 0.3 - 0.9 [facility] x10(3)/[facility] LABORATORY Eosinophils % 0.0 % [facility] Eosinophils Abs 0.0 0.0 - 0.4 [facility] x10(3)/[facility] LABORATORY Basophils % 0.1 % [facility] Basophils Abs 0.0 0.0 - 0.1 [facility] x10(3)/[facility] LABORATORY Immature Gran [...] Gran Abs 0.12 (H) 0.00 - 0.04 x10(3)/[facility] LABORATORY Specimen Anatomical Collection Method Collection Time Receive d Time (Source) Location / / Volume Laterality Blood specimen 07/08/2017 4:00 AM 017 4:09 (specimen) EST AM EST Resulting Agency Comment Spec In Lab Yuan Webber MD HEMATOLOGY ORDERABLES Performing Organization Address City/State/[place] [address] (ABNORMAL) Hemogram (07/08/2017 4:00 AM EST) Analysis Performed At Patho logist Time Signature WBC 18.8 (H) 4.0 - 9.5 [facility] x10(3)/[facility] LABORATORY RBC 4.00 (L) 4.58 - [facility] 5.54 [facility] x10(6)/[facility] LABORATORY Hemoglobin 11.9 (L) 13.7 - [facility] 16.5 gm/dL [facility] Hematocrit 35.9 (L) 40.5 - [facility] 48.5 % [facility] MCV 89.8 82.9 - [facility] 93.1 [facility] LABORATORY MCH 29.8 27.5 - [facility] 32.1 pg [facility] MCHC 33.1 32.0 - [facility] 35.7 gm/dL [facility] Platelets 232 145 - 357 [facility] x10(3)/[facility] LABORATORY RDWSD 47.6 (H) 36.0 - [facility] 45.0 [facility] LABORATORY RDWCV 14.5 (H) 11.4 - [facility] 13.8 % [facility] MPV 9.5 7.6 - 12.9 [facility] LABORATORY nRBC % Auto 0.0 % [facility] nRBC Abs Auto 0.000 0.000 - [facility] 0.000 [facility] x10(3)/[facility] LABORATORY Specimen Anatomical Collection Method Collection Time Receive d Time (Source) Location / / Volume Laterality Blood specimen 07/08/2017 4:00 AM 017 4:09 (specimen) EST AM EST Resulting Agency Comment Spec In Lab Yuan Webber MD HEMATOLOGY ORDERABLES Performing Organization Address City/State/ZIP Code Phon e Number [place] [id number] [address] Drive (ABNORMAL) Electrolytes panel (07/08/2017 4:00 AM EST) P athologist Signature Sodium 139 135 - 145 [facility] mmol/L [facility] Potassium 4.7 3.5 - 5.0 [facility] mmol/L [facility] Comment: result rechecked-JLK Please note: ??Patients with WBC >100,00 0 may have falsely elevated Potassium levels. ??For accurate Potassium quantif ication in these patients send serum separator tube (gold top) for subsequent determinations. ??Contact the Clinical Chemistry Laboratory if there are any qu estions. Chloride 104 98 - 107 mmol/L [facility] CO2 21 (L) 22 - 31 mmol/L [facility] Anion Gap 14 5 - 15 mmol/L [facility] LABORATORY Specimen Anatomical Collection Method Collection Time Receive d Time (Source) Location / / Volume Laterality Blood specimen 07/08/2017 4:00 AM 017 4:10 (specimen) EST AM EST Resulting Agency Comment Spec In Lab Yuan Webber MD CHEMISTRY ORDERABLES Performing Organization Address City/State/[place] [address] (ABNORMAL) Cardiac Enzymes (LEB/CGP) (07/08/2017 4:00 AM EST) P athologist Signature Troponin-T 1.88 (H) 0.00 - [facility] 0.00 ng/mL [facility] Comment: The 99th percentile [...] additional sample may be indicated. Reference: Third [place] Definition of Myocardial Infarction. Journal of the [employer] College [employer] 2012;60:1581-98 CK, Total 413 (H) 0 - 200 unit/L [facility] Comment: result rechecked-JLK Specimen Anatomical Collection Method Collection Time Receive d Time (Source) Location / / Volume Laterality Blood specimen 07/08/2017 4:00 AM 017 4:09 (specimen) EST AM EST Resulting Agency Comment Spec In Lab Yuan Webber MD CHEMISTRY ORDERABLES Performing Organization Address City/[facility]/ZIP Code Phon e Number [address] (ABNORMAL) Glucose, fasting (07/08/2017 4:00 AM EST) P athologist Signature Glucose 287 (H) 65 - 99 [facility] Fasting mg/dL [facility] Comment: ?Fasting* Glucose Interpretive [...] of Diabetes Mellitus, Position Statement from the [employer]. ??Diabete s Care, Volume 33, Supplement 1, Jul 2009 Specimen Anatomical Collection Method Collection Time Receive d Time (Source) Location / / Volume Laterality Blood specimen 07/08/2017 4:00 AM 017 4:09 (specimen) EST AM EST Resulting Agency Comment Spec In Lab Yuan Webber MD CHEMISTRY ORDERABLES Performing Organization Address City/[facility]/[place] [address] (ABNORMAL) Creatinine (07/08/2017 4:00 AM EST) Analysis Performed At Patho logist Time Signature Creatinine 1.55 (H) 0.80 - [facility] 1.50 mg/dL [facility] Estimated GFR 44 (L) >=60 [facility] Comment: The reported eGFR should be multiplied b y 1.2 for patients. The MDRD is not an appropriate measure o f renal function for patients with body mass extremes or in patients with acute kidney failure. http://i-Optics.Cequint/nkdep http://CorTec/DHMCnkf Specimen Anatomical Collection Method Collection Time Receive d Time (Source) Location / / Volume Laterality Blood specimen 07/08/2017 4:00 AM 017 4:09 (specimen) EST AM EST Resulting Agency Comment Spec In Lab Yuan Webber MD CHEMISTRY ORDERABLES Performing Organization Address City/[facility]/[place] [address] BUN (07/08/2017 4:00 AM EST) athologist Signature BUN 16 10 - 20 [facility] Specimen Anatomical Collection Method Collection Time Receive d Time (Source) Location / / Volume Laterality Blood specimen 07/08/2017 4:00 AM 017 4:09 (specimen) EST AM EST Resulting Agency Comment Spec In Lab Yuan Webber MD CHEMISTRY ORDERABLES Performing Organization Address City/[facility]/[place] [address] (ABNORMAL) POCT Glucose (07/08/2017 3:00 AM EST) athologist Signature POC Glucose 273 (H) 65 - 199 [facility] mg/dL [facility] Comment: Supplemental ranges: <140 mg/dL before meals <180 mg/dL all other times of the day Specimen Anatomical Collection Method Collection Time Receive d Time (Source) Location / / Volume Laterality Blood specimen 07/08/2017 3:00 AM 017 3:00 (specimen) EST AM EST Daphne Shahid MD POINT OF CARE TEST ORDERABLE S Performing Organization Address City/[facility]/ZIP Code Phon e Number [address] (ABNORMAL) POCT Glucose (07/08/2017 1:57 AM EST) P athologist Signature POC Glucose 288 (H) 65 - 199 [facility] mg/dL [facility] Comment: Supplemental ranges: <140 mg/dL before meals <180 mg/dL all other times of the day Specimen Anatomical Collection Method Collection Time Receive d Time (Source) Location / / Volume Laterality Blood specimen 07/08/2017 1:57 AM 017 1:57 (specimen) EST AM EST Daphne Shahid MD POINT OF CARE TEST ORDERABLE S Performing Organization Address City/State/[place] [address] (ABNORMAL) POCT Glucose (07/08/2017 1:01 AM EST) P athologist Signature POC Glucose 315 (H) 65 - 199 [facility] mg/dL [facility] Comment: Supplemental ranges: <140 mg/dL before meals <180 mg/dL all other times of the day Specimen Anatomical Collection Method Collection Time Receive d Time (Source) Location / / Volume Laterality Blood specimen 07/08/2017 1:01 AM 017 1:01 (specimen) EST AM EST Daphne Shahid MD POINT OF CARE TEST ORDERABLE S Performing Organization Address City/[facility]/[place] [address] (ABNORMAL) BLOOD GAS 2 ARTERIAL (07/08/2017 12:09 AM EST) P athologist Signature pH Art 7.26 7.35 - [facility] (Critical) 7.45 [facility] Comment: Noted by reed or wind instrument repairer. pCO2 Art 41 35 - 45 mmHg [facility] pO2 Art 96 85 - 104 mmHg [facility] HCO3 Art 17.7 (L) 20.0 - 26.0 mmol/L [facility] BE Art -9.4 (L) -3.0 - 3.0 mmol/L [facility] Hgb Blood Gas 12.4 (L) 13.7 - 16.5 gm/dL [facility] O2HB Art 94.7 94.0 - 97.0 % [facility] COHB Art 0.2 % [facility] Comment: Noted by reed or wind instrument repairer. FIO2 Art 40 % [facility] PF Ratio Art 240 [facility] Specimen Anatomical Collection Method Collection Time Receive d Time (Source) Location / / Volume Laterality Blood specimen Arterial Draw / 07/08/2017 12:09 2016 5:31 (specimen) Unknown AM EST AM EST Resulting Agency Comment Spec In Lab Samy Maldonado MD CHEMISTRY ORDERABLES Performing Organization Address City/State/[place] [address] (ABNORMAL) POCT Glucose (07/07/2017 10:56 PM EST) P athologist Signature POC Glucose 292 (H) 65 - 199 [facility] mg/dL [facility] Comment: Supplemental ranges: <140 mg/dL before meals <180 mg/dL all other times of the day Specimen Anatomical Collection Method Collection Time Receive d Time (Source) Location / / Volume Laterality Blood specimen 07/07/2017 10:56 7 (specimen) PM EST 10:56 PM EST Daphne hSahid MD POINT OF CARE TEST ORDERABLE S Performing Organization Address City/State/[place] [address] (ABNORMAL) BLOOD GAS 2 ARTERIAL (07/07/2017 10:04 PM EST) athologist Signature pH Art 7.22 7.35 - [facility] (Critical) 7.45 [facility] Comment: Noted by reed or wind instrument repairer. pCO2 Art 42 35 - 45 mmHg [facility] pO2 Art 94 85 - 104 mmHg [facility] HCO3 Art 16.9 (L) 20.0 - 26.0 mmol/L [facility] BE Art -10.7 (L) -3.0 - 3.0 mmol/L [facility] Hgb Blood Gas 13.0 (L) 13.7 - 16.5 gm/dL [facility] O2HB Art 93.8 (L) 94.0 - 97.0 % [facility] COHB Art 0.7 % [facility] Comment: Noted by reed or wind instrument repairer. FIO2 Art 40 % [facility] PF Ratio Art 235 [facility] Specimen Anatomical Collection Method Collection Time Receive d Time (Source) Location / / Volume Laterality Blood specimen 07/07/2017 10:04 7 (specimen) PM EST 10:04 PM EST Daphne Shahid MD CHEMISTRY ORDERABLES Performing Organization Address City/[facility]/ZIP Code Phon e Number [address] (ABNORMAL) Hemoglobin (07/07/2017 10:00 PM EST) P athologist Signature Hemoglobin 12.8 (L) 13.7 - [facility] 16.5 gm/dL [facility] Specimen Anatomical Collection Method Collection Time Receive d Time (Source) Location / / Volume Laterality Blood specimen 07/07/2017 10:00 7 (specimen) PM EST 10:13 PM EST Resulting Agency Comment Spec In Lab Yuan eWbber MD HEMATOLOGY ORDERABLES Performing Organization Address City/[facility]/[place] [address] (ABNORMAL) Potassium (07/07/2017 10:00 PM EST) P athologist Signature Potassium 3.4 (L) 3.5 - 5.0 [facility] mmol/L [facility] Comment: Please note: ??Patients [...] Organization Address City/State/[place] [address] (ABNORMAL) POCT Glucose (07/07/2017 8:49 PM EST) P athologist Signature POC Glucose 241 (H) 65 - 199 [facility] mg/dL [facility] Comment: Supplemental ranges: <140 mg/dL before meals <180 mg/dL all other times of the day Specimen Anatomical Collection Method Collection Time Receive d Time (Source) Location / / Volume Laterality Blood specimen 07/07/2017 8:49 PM 017 8:49 (specimen) EST PM EST Daphne Shahid MD POINT OF CARE TEST ORDERABLE S Performing Organization Address City/[facility]/[place] [address] Prepare Albumin 5% in [...] Organization Address City/State/[place] [address] EKG 12 Lead (07/07/2017 7:17 PM EST) Component Value Ref Range Test Analysis Performed Pathologis t Method Time At Signature Ventricular rate 75 BPM MUSE SYSTEM Atrial Rate 75 BPM MUSE SYSTEM P-R Interval 168 ms MUSE SYSTEM QRS Duration 104 ms MUSE SYSTEM Q-T Interval 462 ms MUSE SYSTEM QTC Calculated 515 ms MUSE SYSTEM (Bezet) Calculated P Ironside 52 degrees MUSE SYSTEM Calculated R Ironside -40 degrees MUSE SYSTEM Calculated T [place]ide 39 degrees MUSE SYSTEM INTERPRETATION Normal sinus [...] [facility] (Critical) 7.45 [facility] Comment: Noted by reed or wind instrument repairer. pCO2 Art 50 (H) 35 - 45 mmHg [facility] pO2 Art 238 (H) 85 - 104 mmHg [facility] HCO3 Art 19.8 (L) 20.0 - 26.0 mmol/L [facility] BE Art -8.1 (L) -3.0 - 3.0 mmol/L [facility] Hgb Blood Gas 12.8 (L) 13.7 - 16.5 gm/dL [facility] O2HB Art 97.5 (H) 94.0 - 97.0 % [facility] COHB Art 0.5 % [place] [...] mmol/L [facility] Comment: Noted by reed or wind instrument repairer. Please note: Patients with [...] [facility] Comment: Noted by reed or wind instrument repairer. FIO2 Art 100 % [facility] PF Ratio Art 238 [facility] Specimen Anatomical Collection Method Collection Time Receive d Time (Source) Location / / Volume Laterality Blood specimen 07/07/2017 6:57 PM 017 6:57 (specimen) EST PM EST Daphne Shahid MD CHEMISTRY ORDERABLES Performing Organization Address City/State/[place] [address] (ABNORMAL) BLOOD GAS 2 ARTERIAL (07/07/2017 5:31 PM EST) athologist Signature pH Art 7.29 7.35 - [facility] (Critical) 7.45 [facility] Comment: Noted by reed or wind instrument repairer. pCO2 Art 48 (H) 35 - 45 mmHg [facility] pO2 Art 137 (H) 85 - 104 mmHg [facility] HCO3 Art 22.4 20.0 - 26.0 mmol/L [facility] BE Art -4.3 (L) -3.0 - 3.0 mmol/L [facility] Hgb Blood Gas 10.0 (L) 13.7 - 16.5 gm/dL [facility] O2HB Art 97.3 (H) 94.0 - 97.0 % [facility] COHB Art 0.3 % [place] [...] Shahid MD CHEMISTRY ORDERABLES Performing Organization Address City/[facility]/ZIP Code Phon e Number [address] Fibrinogen (07/07/2017 5:30 PM EST) P athologist Signature Fibrinogen 224 180 - 510 [facility] mg/dL [facility] Comment: Called by: JEET, Read back [...] Perez MD HEMATOLOGY ORDERABLES Performing Organization Address City/[facility]/ZIP [facility] Phon e Number [address] APTT (07/07/2017 5:30 PM [...] Perez MD HEMATOLOGY ORDERABLES Performing Organization Address City/[facility]/ZIP Code Phon e Number [address] (ABNORMAL) Prothrombin Time (07/07/2017 [...] Perez MD HEMATOLOGY ORDERABLES Performing Organization Address City/[facility] [place] [address] (ABNORMAL) Hemogram (07/07/2017 5:30 PM EST) P athologist Signature WBC 19.6 (H) 4.0 - 9.5 [facility] x10(3)/[facility] LABORATORY RBC 3.08 (L) 4.58 - [facility] 5.54 [facility] x10(6)/[facility] LABORATORY Hemoglobin 9.2 (L) 13.7 - [facility] 16.5 gm/dL [facility] Hematocrit 28.0 (L) 40.5 - [facility] 48.5 % [facility] Comment: This result has been called to MONICA MORAN by DONALD GROSSMAN on 07 07 2017 at 1759, and has been read back. MCV 90.9 82.9 - 93.1 [facility] LABORATORY MCH 29.9 27.5 - 32.1 pg [facility] MCHC 32.9 32.0 - 35.7 gm/dL [facility] Platelets 155 145 - 357 x10(3)/[facility] LABORATORY RDWSD 46.5 (H) 36.0 - 45.0 [facility] LABORATORY RDWCV 14.1 (H) 11.4 - 13.8 % [facility] LABORATORY MPV 9.5 7.6 - 12.9 [facility] LABORATORY nRBC % Auto 0.0 % [facility]ORY nRBC Abs Auto 0.000 0.000 - 0.000 x10(3)/[facility] LABORATORY Specimen Anatomical Collection Method Collection Time Receive d Time (Source) Location / / Volume Laterality Blood specimen 07/07/2017 5:30 PM 017 5:34 (specimen) EST PM EST Resulting Agency Comment Spec In Lab Yifan Perez MD HEMATOLOGY ORDERABLES Performing Organization Address City/State/[place] [address] Prepare Platelets, Apheresis (07/07/2017 5:00 PM EST) P athologist Signature Dispensed? Yes [facility] Specimen Anatomical Collection Method Collection Time Receive d Time (Source) Location / / Volume Laterality Blood specimen 07/07/2017 5:00 PM 017 4:58 (specimen) EST PM EST Daphne Shahid MD BLOOD BANK ORDERABLES Performing Organization Address City/State/[place] [address] Platelet count (07/07/2017 4:55 PM EST) athologist Signature Platelets 177 145 - 357 [facility] x10(3)/[facility] LABORATORY Plat Immature 1.5 0.0 - 7.4 [place] [facility] % % [facility] Comment: Limitation of the Immature Platelet Frac tion (IPF)-May be less reliable when the platelet count is less than [id number]/u L due to statistical imprecision. The IPF [...] in a decreased state of production. References: [employer] The Clinical Value of the Immature Platelet Fraction (IPF) in Cell Recovery Document Number [id number] 12/2010 [employer] The Role of the Imm ature [...] City/State/[place] [address] [facility] [address] (ABNORMAL) Hemoglobin and Hematocrit, blood (07/07/2017 4:55 PM EST) athologist Signature Hemoglobin 9.1 (L) 13.7 - 16.5 KATALINA DAVIS gm/dL [facility] Comment: This result has been called [...] City/State/[place] [address] (ABNORMAL) BLOOD GAS 2 ARTERIAL (07/07/2017 4:38 PM EST) Analysis Performed At Patho logist Time Signature pH Art 7.37 7.35 - [facility] 7.45 [facility] pCO2 Art 44 35 - 45 [facility] mmHg [facility] pO2 Art 322 (H) 85 - 104 [facility] LABORATORY HCO3 Art 24.9 20.0 - [facility] 26.0 [facility] mmol/[facility] BE Art -0.4 -3.0 - 3.0 [facility] mmol/L [facility] Hgb Blood Gas 10.1 (L) 13.7 - [facility] 16.5 gm/dL [facility] O2HB Art 98.7 (H) 94.0 - [facility] 97.0 % [facility] COHB Art 0.1 % [facility] [...] mmol/L [facility] Comment: Noted by reed or wind instrument repairer. Note: ??Total bilirubin higher than 20 m g/dL may lead to falsely low ionized calcium. CL Whole Blood 101 98 - 107 mmol/L [facility] Gluc Whole Bld 295 (H) 65 - 199 mg/dL [facility] Comment: Diabetes: >=200 mg/dL plus symp toms. Lactate WB 1.7 0.5 - 2.2 mmol/L [facility] Specimen Anatomical Collection Method Collection Time Receive d Time (Source) Location / / Volume Laterality Blood specimen 07/07/2017 4:38 PM 017 4:38 (specimen) EST PM EST Daphne Shahid MD CHEMISTRY ORDERABLES Performing Organization Address City/State/[place] [address] (ABNORMAL) BLOOD GAS 2 VENOUS (07/07/2017 4:06 PM EST) Analysis Performed At Patho logist Time Signature pH Cody 7.31 (L) 7.32 - [facility] 7.42 [facility] pCO2 Cody 47 41 - 51 [facility] LABORATORY pO2 Cody 53 (H) 25 - 40 [facility] LABORATORY HCO3 Cody 22.7 mmol/L [facility] BE Cody -3.7 mmol/L [facility] Hgb Blood Gas 10.2 (L) 13.7 - [facility] 16.5 gm/dL [facility] O2HB Cody 81.0 % [facility] mmol/L [facility] Comment: Noted by reed or wind instrument repairer. Note: ??Total bilirubin higher than 20 m g/dL may lead to falsely low ionized calcium. CL Whole Blood 100 98 - 107 mmol/L [facility] Gluc Whole Bld 231 (H) 65 - 199 mg/dL [facility] Comment: Diabetes: >=200 mg/dL plus symp toms Lactate WB 1.1 0.5 - 2.2 mmol/L [facility] BGas Source Venous [facility] Specimen Anatomical Collection Method Collection Time Receive d Time (Source) Location / / Volume Laterality Blood specimen 07/07/2017 4:06 PM 017 4:06 (specimen) EST PM EST Daphne Shahid MD CHEMISTRY ORDERABLES Performing Organization Address City/State/[place] [address] (ABNORMAL) BLOOD GAS 2 ARTERIAL (07/07/2017 4:05 PM EST) Analysis Performed At Patho logist Time Signature pH Art 7.36 7.35 - [facility] 7.45 [facility] pCO2 Art 40 35 - 45 [facility] mmHg [facility] pO2 Art 282 (H) 85 - 104 [facility] LABORATORY HCO3 Art 22.1 20.0 - [facility] 26.0 [facility] mmol/L [facility] BE Art -3.4 (L) -3.0 - 3.0 [facility] mmol/L [facility] Hgb Blood Gas 10.2 (L) 13.7 - [facility] 16.5 gm/dL [facility] O2HB Art 98.4 (H) 94.0 - [facility] 97.0 % [facility] COHB Art 0.3 % [facility] [...] mmol/L [facility] Comment: Noted by reed or wind instrument repairer. Note: ??Total bilirubin higher than 20 m g/dL may lead to falsely low ionized calcium. CL Whole Blood 101 98 - 107 mmol/L [facility] Gluc Whole Bld 260 (H) 65 - 199 mg/dL [facility] Comment: Diabetes: >=200 mg/dL plus symp toms. Lactate WB 1.4 0.5 - 2.2 mmol/L [facility] Specimen Anatomical Collection Method Collection Time Receive d Time (Source) Location / / Volume Laterality Blood specimen 07/07/2017 4:05 PM 017 4:05 (specimen) EST PM EST Daphne Shahid MD CHEMISTRY ORDERABLES Performing Organization Address City/State/[place] [address] (ABNORMAL) BLOOD GAS 2 ARTERIAL (07/07/2017 2:29 PM EST) Analysis Performed At Patho logist Time Signature pH Art 7.43 7.35 - [facility] 7.45 [facility] pCO2 Art 36 35 - 45 [facility] LABORATORY pO2 Art 221 (H) 85 - 104 [facility] LABORATORY HCO3 Art 23.2 20.0 - [facility] 26.0 [facility] mmol/L [facility] BE Art -1.2 -3.0 - 3.0 [facility] mmol/L [facility] Hgb Blood Gas 13.9 13.7 - [facility] 16.5 gm/dL [facility] O2HB Art 97.8 (H) 94.0 - [facility] 97.0 % [facility] COHB Art 1.1 % [facility] [...] Lactate WB 1.5 0.5 - 2.2 mmol/L [facility] Specimen Anatomical Collection Method Collection Time Receive d Time (Source) Location / / Volume Laterality Blood specimen 07/07/2017 2:29 PM 017 2:29 (specimen) EST PM EST Daphne Shahid MD CHEMISTRY ORDERABLES Performing Organization Address City/State/[place] [address] Prepare Coag Factors (Non-Hemophilia) (07/07/2017 1:25 PM EST) P athologist Signature Dispensed? Yes [facility] Specimen Anatomical Collection Method Collection Time Receive d Time (Source) Location / / Volume Laterality Blood specimen 07/07/2017 1:25 PM 017 1:21 (specimen) EST PM EST Daphne Shahid MD BLOOD BANK ORDERABLES Performing Organization Address City/State/ZIP Code Phon e Number [address] Prepare RBC (07/07/2017 1:10 PM EST) P athologist Signature Dispensed? Yes [facility] Specimen Anatomical Collection Method Collection Time Receive d Time (Source) Location / / Volume Laterality Blood specimen 07/07/2017 1:10 PM 017 1:05 (specimen) EST PM EST Daphne Shahid MD BLOOD BANK ORDERABLES Performing Organization Address City/[facility]/ZIP Code Phon e Number [address] POCT Glucose (07/07/2017 11:56 AM EST) P athologist Signature POC Glucose 188 65 - 199 [facility]dL [facility] Comment: Supplemental ranges: <140 mg/dL before meals <180 mg/dL all other times of the day Specimen Anatomical Collection Method Collection Time Receive d Time (Source) Location / / Volume Laterality Blood specimen 07/07/2017 11:56 7 (specimen) AM EST 11:56 AM EST Daphne Shahid MD POINT OF CARE TEST ORDERABLE S Performing Organization Address City/[facility]/[place] [address] POCT Glucose (07/07/2017 11:05 AM EST) P athologist Signature POC Glucose 168 65 - 199 [facility] mg/dL [facility] Comment: Supplemental [...] City/State/[place] [address] POCT Glucose (07/07/2017 10:02 AM EST) athologist Signature POC Glucose 191 65 - 199 KATALINA RYAN mg/dL [facility] Comment: Supplemental [...] Address City/State/ZIP Code Phon e Number [address] POCT Glucose (07/07/2017 7:53 AM EST) athologist Signature POC Glucose 178 65 - 199 [facility] mg/dL [facility] Comment: Supplemental ranges: <140 mg/dL before meals <180 mg/dL all other times of the day Specimen Anatomical Collection Method Collection Time Receive d Time (Source) Location / / Volume Laterality Blood specimen 07/07/2017 7:53 AM 017 7:53 (specimen) EST AM EST Daphne Shahid MD POINT OF CARE TEST ORDERABLE S Performing Organization Address City/State/[place] [address] POCT Glucose (07/07/2017 7:03 AM EST) athologist Signature POC Glucose 188 65 - 199 KATALINA RYAN mg/dL [facility] Comment: Supplemental ranges: <140 mg/dL before meals <180 mg/dL all other times of the day Specimen Anatomical Collection Method Collection Time Receive d Time (Source) Location / / Volume Laterality Blood specimen 07/07/2017 7:03 AM 017 7:03 (specimen) EST AM EST Daphne Shahid MD POINT OF CARE TEST ORDERABLE S Performing Organization Address City/State/[place] [address] (ABNORMAL) POCT Glucose (07/07/2017 6:17 AM EST) athologist Signature POC Glucose 207 (H) 65 - 199 [facility] mg/dL [facility] Comment: Supplemental [...] City/State/ZIP Code Phon e Number [place] [id number] [address]OS[address] LAB[address]ORY Drive Differential, Automated (07/07/2017 5:15 AM EST) athologist [facility] Neutrophils % 69.7 % [facility] Neutr Abs (ANC) 5.32 1.70 - [facility] 6.10 [facility] x10(3)/[facility] LABORATORY Lymphocytes % 16.3 % [facility] Lymphocytes Abs 1.2 0.9 - 3.2 [facility] x10(3)/[facility] LABORATORY Monocytes % 10.5 % [facility] Monocyte Abs 0.8 0.3 - 0.9 [facility] x10(3)/[facility] LABORATORY Eosinophils % 2.5 % [facility] Eosinophils Abs 0.2 0.0 - 0.4 [facility] x10(3)/[facility] LABORATORY Basophils % 0.7 % [facility] Basophils Abs 0.0 0.0 - 0.1 [facility] x10(3)/[facility] LABORATORY Immature Gran % 0.30 [...] x10(3)/[facility]ORY Specimen Anatomical Collection Method Collection Time Receive d Time (Source) Location / / Volume Laterality Blood specimen 07/07/2017 5:15 AM 017 5:34 (specimen) EST AM EST Resulting Agency Comment Spec In Lab Daphne Shahid MD HEMATOLOGY ORDERABLES Performing Organization Address City/State/[place] [address] (ABNORMAL) Hemogram (07/07/2017 5:15 AM EST) Analysis Performed At Patho logist Time Signature WBC 7.6 4.0 - 9.5 [facility] x10(3)/[facility] LABORATORY RBC 4.82 4.58 - [facility] 5.54 [facility] x10(6)/[facility] LABORATORY Hemoglobin 14.4 13.7 - [facility] 16.5 gm/dL [facility] Hematocrit 42.1 40.5 - [facility] 48.5 % [facility] MCV 87.3 82.9 - [facility] 93.1 [facility] LABORATORY MCH 29.9 27.5 - [facility] 32.1 pg [facility] MCHC 34.2 32.0 - [facility] 35.7 gm/dL [facility] Platelets 188 145 - 357 [facility] x10(3)/[facility] LABORATORY RDWSD 45.1 (H) 36.0 - [facility] 45.0 [facility] LABORATORY RDWCV 14.3 (H) 11.4 - [facility] 13.8 % [facility] MPV 9.4 7.6 - 12.9 [facility] LABORATORY nRBC % Auto 0.0 % [facility] nRBC Abs Auto 0.000 0.000 - [facility] 0.000 [facility] x10(3)/[facility] LABORATORY Specimen Anatomical Collection Method Collection Time Receive d Time (Source) Location / / Volume Laterality Blood specimen 07/07/2017 5:15 AM 017 5:34 (specimen) EST AM EST Resulting Agency Comment Spec In Lab Daphne Shahid MD HEMATOLOGY ORDERABLES Performing Organization Address City/State/[place] [address] (ABNORMAL) APTT (07/07/2017 5:15 [...] Shahid MD HEMATOLOGY ORDERABLES Performing Organization Address City/[facility]/[place] [address] Magnesium (07/07/2017 5:15 AM EST) athologist Signature Magnesium 0.94 0.69 - 1.07 [facility] mmol/L [facility] Specimen Anatomical Collection Method Collection Time Receive d Time (Source) Location / / Volume Laterality Blood specimen 07/07/2017 5:15 AM 017 5:34 (specimen) EST AM EST Resulting Agency Comment Spec In Lab Daphne Shahid MD CHEMISTRY ORDERABLES Performing Organization Address City/[facility]/[place] [address] (ABNORMAL) Basic Metabolic Panel (non-fasting) (07/07/2017 5:15 AM EST) athologist Signature Glucose Lvl 203 (H) 65 - 199 [facility] mg/dL [facility] Comment: [...] [facility] Estimated GFR >60 >=60 [facility] Comment: The reported eGFR should be multiplied b y 1.2 for patients. The MDRD is not an appropriate measure o f renal function for patients with body mass extremes or in patients with acute kidney failure. http://[employer]/DHnkdep http://[employer]/DHMCnkf Specimen Anatomical Collection Method Collection Time Receive d Time (Source) Location / / Volume Laterality Blood specimen 07/07/2017 5:15 AM 017 5:34 (specimen) EST AM EST Resulting Agency Comment Spec In Lab Daphne Shahid MD CHEMISTRY ORDERABLES Performing Organization Address City/State/[place] [address] (ABNORMAL) Cardiac Enzymes (LEB/CGP) (07/07/2017 5:15 AM EST) P athologist Signature Troponin-T 2.07 (H) 0.00 - [facility] 0.00 ng/mL [facility] Comment: The 99th percentile [...] additional sample may be indicated. Reference: Third [place] Definition of Myocardial Infarction. Journal of the [employer] 2012;60:1581-98 CK, Total 88 0 - 200 unit/L [facility] Specimen Anatomical Collection Method Collection Time Receive d Time (Source) Location / / Volume Laterality Blood specimen 07/07/2017 5:15 AM 017 5:34 (specimen) EST AM EST Resulting Agency Comment Spec In Lab Daphne Shahid MD CHEMISTRY ORDERABLES Performing Organization Address City/[facility]/ZIP Code Phon e Number [address] POCT Glucose (07/07/2017 5:01 AM EST) athologist Signature POC Glucose 182 65 - 199 [facility] mg/dL [facility] Comment: Supplemental ranges: <140 mg/dL before meals <180 mg/dL all other times of the day Specimen Anatomical Collection Method Collection Time Receive d Time (Source) Location / / Volume Laterality Blood specimen 07/07/2017 5:01 AM 017 5:01 (specimen) EST AM EST Daphne Shahid MD POINT OF CARE TEST ORDERABLE S Performing Organization Address City/[facility]/ZIP [facility] [place] [address] POCT Glucose (07/07/2017 4:08 AM EST) athologist Signature POC Glucose 199 65 - 199 [facility] mg/dL [facility] Comment: Supplemental ranges: <140 mg/dL before meals <180 mg/dL all other times of the day Specimen Anatomical Collection Method Collection Time Receive d Time (Source) Location / / Volume Laterality Blood specimen 07/07/2017 4:08 AM 017 4:08 (specimen) EST AM EST Daphne Shahid MD POINT OF CARE TEST ORDERABLE S Performing Organization Address City/State/[place] [address] POCT Glucose (07/07/2017 3:03 AM EST) athologist Signature POC Glucose 188 65 - 199 [place] RYAN mg/dL [facility] Comment: Supplemental ranges: <140 mg/dL before meals <180 mg/dL all other times of the day Specimen Anatomical Collection Method Collection Time Receive d Time (Source) Location / / Volume Laterality Blood specimen 07/07/2017 3:03 AM 017 3:03 (specimen) EST AM EST Daphne Shahid MD POINT OF CARE TEST ORDERABLE S Performing Organization Address City/State/[place] [address] (ABNORMAL) POCT Glucose (07/07/2017 2:08 AM EST) athologist Signature POC Glucose 200 (H) 65 - 199 [facility] mg/dL [facility] Comment: Supplemental [...] Address City/State/ZIP Code Phon e Number [address] (ABNORMAL) POCT Glucose (07/07/2017 1:31 AM EST) athologist Signature POC Glucose 209 (H) 65 - 199 [facility] mg/dL [facility] Comment: Supplemental [...] City/State/ZIP Code Phon e Number [place] [id number]OSPITAL LAB[address] Drive XR Chest PA or [...] 199 [facility] mg/dL [facility] Comment: Supplemental ranges: <140 mg/dL before meals <180 mg/dL all other times of the day Specimen Anatomical Collection Method Collection Time Receive d Time (Source) Location / / Volume Laterality Blood specimen 07/07/2017 12:07 7 (specimen) AM EST 12:07 AM EST Daphne Shahid MD POINT OF CARE TEST ORDERABLE S Performing Organization Address City/State/[place] [address] (ABNORMAL) APTT (07/07/2017 12:00 [...] Shahid MD HEMATOLOGY ORDERABLES Performing Organization Address City/[facility]/[place] [address] POCT Glucose (07/06/2017 9:55 PM EST) athologist Signature POC Glucose 109 65 - 199 [facility] mg/dL [facility] Comment: Supplemental ranges: <140 mg/dL before meals <180 mg/dL all other times of the day Specimen Anatomical Collection Method Collection Time Receive d Time (Source) Location / / Volume Laterality Blood specimen 07/06/2017 9:55 PM 017 9:55 (specimen) EST PM EST Daphne Shahid MD POINT OF CARE TEST ORDERABLE S Performing Organization Address City/[facility]/[place] [address] POCT Glucose (07/06/2017 9:04 PM EST) athologist Signature POC Glucose 120 65 - 199 [facility] mg/dL [facility] Comment: Supplemental ranges: <140 mg/dL before meals <180 mg/dL all other times of the day Specimen Anatomical Collection Method Collection Time Receive d Time (Source) Location / / Volume Laterality Blood specimen 07/06/2017 9:04 PM 017 9:04 (specimen) EST PM EST Daphne Shahid MD POINT OF CARE TEST ORDERABLE S Performing Organization Address City/[facility]/[place] [address] POCT Glucose (07/06/2017 7:45 PM EST) athologist Signature POC Glucose 158 65 - 199 [facility] mg/dL [facility] Comment: Supplemental ranges: <140 mg/dL before meals <180 mg/dL all other times of the day Specimen Anatomical Collection Method Collection Time Receive d Time (Source) Location / / Volume Laterality Blood specimen 07/06/2017 7:45 PM 017 7:45 (specimen) EST PM EST Daphne Shahid MD POINT OF CARE TEST ORDERABLE S Performing Organization Address City/[facility]/[place] [address] Potassium (07/06/2017 7:40 PM EST) athologist Signature Potassium 3.9 3.5 - 5.0 [facility] mmol/L [facility] Comment: Please note: ??Patients [...] Shahid MD CHEMISTRY ORDERABLES Performing Organization Address City/[facility]/[place] [address] (ABNORMAL) Cardiac Enzymes (LEB/CGP) (07/06/2017 7:40 PM EST) athologist Signature Troponin-T 2.27 (H) 0.00 - [facility] 0.00 ng/mL [facility] Comment: The 99th percentile [...] additional sample may be indicated. Reference: [employer] [place] Definition of Myocardial Infarction. Journal of the [employer] 2012;60:1581-98 CK, Total 93 0 - 200 unit/L [facility] Specimen Anatomical Collection Method Collection Time Receive d Time (Source) Location / / Volume Laterality Blood specimen 07/06/2017 7:40 PM 017 7:52 (specimen) EST PM EST Resulting Agency Comment Spec In Lab Daphne Shahid MD CHEMISTRY ORDERABLES Performing Organization Address City/State/[place] [address] (ABNORMAL) POCT Glucose (07/06/2017 7:13 PM EST) athologist Signature POC Glucose 200 (H) 65 - 199 [facility]/dL [facility] Comment: Supplemental ranges: <140 mg/dL before meals <180 mg/dL all other times of the day Specimen Anatomical Collection Method Collection Time Receive d Time (Source) Location / / Volume Laterality Blood specimen 07/06/2017 7:13 PM 017 7:13 (specimen) EST PM EST Daphne Shahid MD POINT OF CARE TEST ORDERABLE S Performing Organization Address City/[facility]/[place] [address] (ABNORMAL) APTT (07/06/2017 6:15 [...] Organization Address City/State/[place] [address] (ABNORMAL) POCT Glucose (07/06/2017 6:03 PM EST) athologist Signature POC Glucose 236 (H) 65 - 199 [facility] mg/dL [facility] Comment: Supplemental ranges: <140 mg/dL before meals <180 mg/dL all other times of the day Specimen Anatomical Collection Method Collection Time Receive d Time (Source) Location / / Volume Laterality Blood specimen 07/06/2017 6:03 PM 017 6:03 (specimen) EST PM EST Daphne Shahid MD POINT OF CARE TEST ORDERABLE S Performing Organization Address City/[facility]/[place] [address] (ABNORMAL) POCT Glucose (07/06/2017 5:01 PM EST) athologist Signature POC Glucose 235 (H) 65 - 199 [facility] mg/dL [facility] Comment: Supplemental ranges: <140 mg/dL before meals <180 mg/dL all other times of the day Specimen Anatomical Collection Method Collection Time Receive d Time (Source) Location / / Volume Laterality Blood specimen 07/06/2017 5:01 PM 017 5:01 (specimen) EST PM EST Daphne Shahid MD POINT OF CARE TEST ORDERABLE S Performing Organization Address City/State/[place] [address] (ABNORMAL) POCT Glucose (07/06/2017 4:06 PM EST) P athologist Signature POC Glucose 202 (H) 65 - 199 [facility] mg/dL [facility] Comment: Supplemental ranges: <140 mg/dL before meals <180 mg/dL all other times of the day Specimen Anatomical Collection Method Collection Time Receive d Time (Source) Location / / Volume Laterality Blood specimen 07/06/2017 4:06 PM 017 4:06 (specimen) EST PM EST Daphne Shahid MD POINT OF CARE TEST ORDERABLE S Performing Organization Address City/State/[place] [address] POCT Glucose (07/06/2017 2:59 PM EST) athologist Signature POC Glucose 178 65 - 199 [place] mg/dL [facility] Comment: Supplemental ranges: <140 mg/dL before meals <180 mg/dL all other times of the day Specimen Anatomical Collection Method Collection Time Receive d Time (Source) Location / / Volume Laterality Blood specimen 07/06/2017 2:59 PM 017 2:59 (specimen) EST PM EST Daphne Shahdi MD POINT OF CARE TEST ORDERABLE S Performing Organization Address City/State/[place] [address] (ABNORMAL) Cardiac Enzymes (LEB/CGP) (07/06/2017 2:10 PM EST) P athologist Signature Troponin-T 2.34 (H) 0.00 - [facility] 0.00 ng/mL [facility] Comment: The 99th percentile [...] additional sample may be indicated. Reference: [place] Definition of Myocardial Infarction. Journal of the [employer] College [employer] 2012;60:1581-98 CK, Total 101 0 - 200 unit/L [facility] Specimen Anatomical Collection Method Collection Time Receive d Time (Source) Location / / Volume Laterality Blood specimen 07/06/2017 2:10 PM 017 2:26 (specimen) EST PM EST Resulting Agency Comment Spec In Lab Daphne Shahid MD CHEMISTRY ORDERABLES Performing Organization Address City/State/[place] [address] POCT Glucose (07/06/2017 2:08 PM EST) P athologist Signature POC Glucose 192 65 - 199 [facility] mg/dL [facility] Comment: Supplemental [...] Address City/State/ZIP Code Phon e Number [address] POCT Glucose (07/06/2017 1:04 PM EST) P athologist Signature POC Glucose 162 65 - 199 [facility] Comment: Supplemental ranges: <140 mg/dL before meals <180 mg/dL all other times of the day Specimen Anatomical Collection Method Collection Time Receive d Time (Source) Location / / Volume Laterality Blood specimen 07/06/2017 1:04 PM 017 1:04 (specimen) EST PM EST Daphne Shahid MD POINT OF CARE TEST ORDERABLE S Performing Organization Address City/[facility]/ZIP Code Phon e Number [address] POCT Glucose (07/06/2017 12:05 PM EST) P athologist Signature POC Glucose 196 65 - 199 [facility] Comment: Supplemental ranges: <140 mg/dL before meals <180 mg/dL all other times of the day Specimen Anatomical Collection Method Collection Time Receive d Time (Source) Location / / Volume Laterality Blood specimen 07/06/2017 12:05 7 (specimen) PM EST 12:05 PM EST Daphne Shahid MD POINT OF CARE TEST ORDERABLE S Performing Organization Address City/State/[place] [address] EKG 12 Lead (07/06/2017 12:00 PM EST) Component Value Ref Range Test Analysis Performed Pathologis t Method Time At Signature Ventricular rate 91 BPM MUSE SYSTEM Atrial Rate 91 BPM MUSE SYSTEM P-R Interval 140 ms MUSE SYSTEM QRS Duration 94 ms MUSE SYSTEM Q-T Interval 394 ms MUSE SYSTEM QTC Calculated 484 ms MUSE SYSTEM (Bezet) Calculated P [place] 36 degrees MUSE SYSTEM Calculated R [place] -19 degrees MUSE SYSTEM Calculated T [place] 104 degrees MUSE SYSTEM INTERPRETATION Normal sinus rhythm MUSE SYSTEM 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) ST & T wave abnormality, consider lateral ischemia Abnormal ECG When compared with ECG of 05-JUL-2017 20:39, No significant change was found Confirmed by MD Luci, Taurus Braun ([id number]) on 07/06/2017 5:07:33 PM Specimen Anatomical Collection Method Collection Time Receive d Time (Source) Location / / Volume Laterality 07/06/2017 12:00 07/06/2017 5:07 PM EST PM EST Daphne Shahid MD ECG ORDERABLES Performing Organization Address City/[facility]/ZIP Code Phon e Number MUSE SYSTEM ABORH Recheck Status (07/06/2017 12:00 PM EST) [facility] Method Time Signature ABORH Type Completed [facility] LABORATORY Specimen Anatomical Collection Method Collection Time Receive d Time (Source) Location / / Volume Laterality Blood specimen 07/06/2017 12:00 7 (specimen) PM EST 12:24 PM EST Resulting Agency Comment Spec In Lab Daphne Shahid MD BLOOD BANK ORDERABLES Performing Organization Address City/[facility]/[place] [address] Antibody screen (07/06/2017 12:00 PM EST) [facility] Method Time Signature Ab Screen Negative [facility] LABORATORY Expires at 07/09/2017 [facility] 235 on: [facility] Specimen Anatomical Collection Method Collection Time Receive d Time (Source) Location / / Volume Laterality Blood specimen 07/06/2017 12:00 7 (specimen) PM EST 12:24 PM EST Resulting Agency Comment Spec In Lab Daphne Shahid MD BLOOD BANK ORDERABLES Performing Organization Address City/[facility]/[place] [address] ABO/Rh Typing (07/06/2017 12:00 [...] Organization Address City/State/[place] [address] Prothrombin Time (07/06/2017 11:24 AM EST) athologist Signature PT 13.3 11.8 - 14.0 [facility] LABORATORY INR 1.0 0.9 - 1.1 [facility] [...] Shahid MD HEMATOLOGY ORDERABLES Performing Organization Address City/[facility]/[place] [address] (ABNORMAL) APTT (07/06/2017 11:24 [...] Address City/State/ZIP Code Phon e Number [address] POCT Glucose (07/06/2017 11:02 AM EST) athologist Signature POC Glucose 187 65 - 199 [place] mg/dL [facility] Comment: Supplemental ranges: <140 mg/dL before meals <180 mg/dL all other times of the day Specimen Anatomical Collection Method Collection Time Receive d Time (Source) Location / / Volume Laterality Blood specimen 07/06/2017 11:02 7 (specimen) AM EST 11:02 AM EST Daphne Shahid MD POINT OF CARE TEST ORDERABLE S Performing Organization Address City/State/[place] [address] POCT Glucose (07/06/2017 10:18 AM EST) athologist Signature POC Glucose 193 65 - 199 [place] mg/dL [facility] Comment: Supplemental ranges: <140 mg/dL before meals <180 mg/dL all other times of the day Specimen Anatomical Collection Method Collection Time Receive d Time (Source) Location / / Volume Laterality Blood specimen 07/06/2017 10:18 7 (specimen) AM EST 10:18 AM EST Daphne Shahid MD POINT OF CARE TEST ORDERABLE S Performing Organization Address City/State/[place] [address] POCT Glucose (07/06/2017 9:25 AM EST) athologist Signature POC Glucose 182 65 - 199 [place] mg/dL [facility] Comment: Supplemental ranges: <140 mg/dL before meals <180 mg/dL all other times of the day Specimen Anatomical Collection Method Collection Time Receive d Time (Source) Location / / Volume Laterality Blood specimen 07/06/2017 9:25 AM 017 9:25 (specimen) EST AM EST Daphne Shahid MD POINT OF CARE TEST ORDERABLE S Performing Organization Address City/State/[place] [address] (ABNORMAL) Cardiac Enzymes (LEB/CGP) (07/06/2017 8:10 AM EST) athologist Signature Troponin-T 2.26 (H) 0.00 - [facility] 0.00 ng/mL [facility] Comment: The 99th percentile [...] additional sample may be indicated. Reference: [place] Definition of Myocardial Infarction. Journal of the [employer] College of Cardiology 2012;60:1581-98 CK, Total 124 0 - 200 unit/L [facility] Specimen Anatomical Collection Method Collection Time Receive d Time (Source) Location / / Volume Laterality Blood specimen 07/06/2017 8:10 AM 017 8:23 (specimen) EST AM EST Resulting Agency Comment Spec In Lab Daphne Shahid MD CHEMISTRY ORDERABLES Performing Organization Address City/State/[place] [address] Magnesium (07/06/2017 8:10 AM EST) athologist Signature Magnesium 0.84 0.69 - 1.07 [facility] mmol/L [facility] Specimen Anatomical Collection Method Collection Time Receive d Time (Source) Location / / Volume Laterality Blood specimen 07/06/2017 8:10 AM 017 8:21 (specimen) EST AM EST Resulting Agency Comment Spec In Lab Daphne Shahid MD CHEMISTRY ORDERABLES Performing Organization Address City/[facility]/[place] [address] (ABNORMAL) Basic Metabolic Panel (non-fasting) (07/06/2017 8:10 AM EST) P athologist Signature Glucose Lvl 199 65 - 199 [facility] mg/dL [facility] Comment: [...] [facility] Estimated GFR >60 >=60 [facility] Comment: The reported eGFR should be multiplied b y 1.2 for patients. The MDRD is not an appropriate measure o f renal function for patients with body mass extremes or in patients with acute kidney failure. http://i-Optics.Cequint/DHnkdep http://i-Optics.Cequint/DHMCnkf Specimen Anatomical Collection Method Collection Time Receive d Time (Source) Location / / Volume Laterality Blood specimen 07/06/2017 8:10 AM 017 8:21 (specimen) EST AM EST Resulting Agency Comment Spec In Lab Daphne Shahid MD CHEMISTRY ORDERABLES Performing Organization Address City/State/[place] [address] POCT Glucose (07/06/2017 7:34 AM EST) P athologist Signature POC Glucose 198 65 - 199 [facility] Comment: Supplemental [...] Address City/State/ZIP Code Phon e Number [address] POCT Glucose (07/06/2017 7:03 AM EST) athologist Signature POC Glucose 181 65 - 199 [facility] Comment: Supplemental ranges: <140 mg/dL before meals <180 mg/dL all other times of the day Specimen Anatomical Collection Method Collection Time Receive d Time (Source) Location / / Volume Laterality Blood specimen 07/06/2017 7:03 AM 017 7:03 (specimen) EST AM EST Daphne Shahid MD POINT OF CARE TEST ORDERABLE S Performing Organization Address City/State/[place] [address] XR Chest PA or [...] 199 [facility] mg/dL [facility] Comment: Supplemental [...] City/State/[place] [address] POCT Glucose (07/06/2017 5:08 AM EST) athologist Signature POC Glucose 154 65 - 199 [facility] mg/dL [facility] Comment: Supplemental [...] Address City/State/ZIP Code Phon e Number [address] POCT Glucose (07/06/2017 4:05 AM EST) athologist Signature POC Glucose 142 65 - 199 [facility] Comment: Supplemental [...] Address City/State/ZIP Code Phon e Number [address] POCT Glucose (07/06/2017 3:00 AM EST) athologist Signature POC Glucose 116 65 - 199 [facility] Comment: Supplemental [...] Address City/State/ZIP Code Phon e Number [address] Potassium (07/06/2017 2:20 AM EST) athologist Signature Potassium 3.9 3.5 - 5.0 [facility] mmol/L [facility] Comment: Please note: ??Patients [...] City/State/[place] [address] Differential, Automated (07/06/2017 2:20 AM EST) athologist Signature Neutrophils % 72.9 % [facility] Neutr Abs (ANC) 5.53 1.70 - [facility] 6.10 [facility] x10(3)/[facility] LABORATORY Lymphocytes % 16.4 % [facility] Lymphocytes Abs 1.2 0.9 - 3.2 [facility] x10(3)/[facility] LABORATORY Monocytes % 9.4 % [facility] Monocyte Abs 0.7 0.3 - 0.9 [facility] x10(3)/[facility] LABORATORY Eosinophils % 0.5 % [facility] Eosinophils Abs 0.0 0.0 - 0.4 [facility] x10(3)/[facility] LABORATORY Basophils % 0.4 % [facility] Basophils Abs 0.0 0.0 - 0.1 [facility] x10(3)/[facility] LABORATORY Immature Gran % 0.40 % [facility] Comment: Immature granulocytes(IG's)percentage an d absolute count will include metamyelocytes, myelocytes, and promyelo cytes. Blood smears from CBCs yielding IG's will be scanned manually for concor dance. If this scan disagrees with the automated IG or if promyelocytes are not ed, a manual differential will be performed. Melisa Gran Abs 0.03 0.00 - 0.04 x10(3)/[facility]ORY Specimen Anatomical Collection Method Collection Time Receive d Time (Source) Location / / Volume Laterality Blood specimen 07/06/2017 2:20 AM 017 2:33 (specimen) EST AM EST Resulting Agency Comment Spec In Lab Daphne Shahid MD HEMATOLOGY ORDERABLES Performing Organization Address City/[facility]/[place] [address] (ABNORMAL) Hemogram (07/06/2017 2:20 AM EST) Analysis Performed At Patho logist Time Signature WBC 7.6 4.0 - 9.5 [facility](3[facility] LABORATORY RBC 4.52 (L) 4.58 - [place] 5.54 [facility] x10(6)/[facility] LABORATORY Hemoglobin 13.4 (L) 13.7 - [facility] 16.5 gm/dL [facility] Hematocrit 39.7 (L) 40.5 - [facility] 48.5 % [facility] MCV 87.8 82.9 - [facility] 93.1 [facility] LABORATORY MCH 29.6 27.5 - [place] 32.1 pg [facility] MCHC 33.8 32.0 - [facility] 35.7 gm/dL [facility] Platelets 189 145 - 357 [facility] x10(3)/[facility] LABORATORY RDWSD 45.6 (H) 36.0 - [facility] 45.0 [facility] LABORATORY RDWCV 14.3 (H) 11.4 - [facility] 13.8 % [facility] MPV 9.1 7.6 - 12.9 [facility] nRBC % Auto 0.0 % [facility] nRBC Abs Auto 0.000 0.000 - [place] 0.000 [facility] x10(3)/[facility] LABORATORY Specimen Anatomical Collection Method Collection Time Receive d Time (Source) Location / / Volume Laterality Blood specimen 07/06/2017 2:20 AM 017 2:33 (specimen) EST AM EST Resulting Agency Comment Spec In Lab Daphne Shahid MD HEMATOLOGY ORDERABLES Performing Organization Address City/State/ZIP [place] [address] (ABNORMAL) APTT (07/06/2017 2:20 [...] Shahid MD HEMATOLOGY ORDERABLES Performing Organization Address City/[facility]/[place] [address] POCT Glucose (07/06/2017 2:20 AM EST) athologist Signature POC Glucose 115 65 - 199 [facility] mg/dL [facility] Comment: Supplemental ranges: <140 mg/dL before meals <180 mg/dL all other times of the day Specimen Anatomical Collection Method Collection Time Receive d Time (Source) Location / / Volume Laterality Blood specimen 07/06/2017 2:20 AM 017 2:20 (specimen) EST AM EST Daphne Shahid MD POINT OF CARE TEST ORDERABLE S Performing Organization Address City/State/[place] [address] (ABNORMAL) Cardiac Enzymes (LEB/CGP) (07/06/2017 2:20 AM EST) athologist Signature Troponin-T 2.13 (H) 0.00 - [facility] 0.00 ng/mL [facility] Comment: The 99th percentile [...] additional sample may be indicated. Reference: [place] Definition of Myocardial Infarction. Journal of the [place] [employer]iology 2012;60:1581-98 CK, Total 129 0 - 200 unit/L [facility] Specimen Anatomical Collection Method Collection Time Receive d Time (Source) Location / / Volume Laterality Blood specimen 07/06/2017 2:20 AM 017 2:33 (specimen) EST AM EST Resulting Agency Comment Spec In Lab Daphne Shahid MD CHEMISTRY ORDERABLES Performing Organization Address City/State/ZIP Code Phon e Number [place] [id number] [address] (ABNORMAL) Hemoglobin A1c (07/06/2017 2:20 AM EST) Analysis Performed At Patho logist Time Signature Hemoglobin A1C 6.8 (H) 4.3 - 5.6 [facility]OR[facility] [...] [id number] Est Avg Gluc See note mg/dL [facility] Comment: Estimated Average Glucose [...] hemoglobinopathies. Additional resources are available on [facility] ADA website. Macario HAMMOND, Ruthann J, Deysi R, et al. ??Tr anslating the A1C assay into estimated average glucose values. ??Diabetes Care 2008:31(8):8431-1922. Specimen Anatomical Collection Method Collection Time Receive d Time (Source) Location / / Volume Laterality Blood specimen 07/06/2017 2:20 AM 017 2:34 (specimen) EST AM EST Resulting Agency Comment Spec In Lab Daphne Shahid MD CHEMISTRY ORDERABLES Performing Organization Address City/State/[place] [address] (ABNORMAL) Lipid Panel (07/06/2017 2:20 AM EST) [facility] Method Time Signature Chol, Total 150 <=239 [place] mg/dL [facility] LABORATORY Triglycerides 129 <=199 [place] mg/dL [facility] LABORATORY HDL 32 (L) >=40 [place] mg/dL [facility] LABORATORY LDL Cholesterol 92 <=190 [place] mg/dL [facility]ORY Chol/HDL Ratio 4.7 ratio [place] [facility] Lipid See Note [place] Hernandes [facility] Comment: Lipid management should be guided by a p atient? s ASCVD risk, goals and preferences. ACC/AHA Guidelines recommend high intens ity statin if clinical ASCVD or LDL greater than or equal to 190 mg/dL. http://i-Optics.com/KOS-PZA-Rkqgnlcpf Adults aged 40-75 with LDL 70-189 mg/dL should have their 10 year ASCVD risk estimated with the ACC/AHA ASCVD risk es timator http://tools.acc.org/EPAIW-Kdop-Dhsjepkz r/ Statin should be discussed if risk [...] Organization Address City/State/[place] [address] POCT Glucose (07/06/2017 1:09 AM EST) P athologist Signature POC Glucose 121 65 - 199 [facility] mg/dL [facility] Comment: Supplemental ranges: <140 mg/dL before meals <180 mg/dL all other times of the day Specimen Anatomical Collection Method Collection Time Receive d Time (Source) Location / / Volume Laterality Blood specimen 07/06/2017 1:09 AM 017 1:09 (specimen) EST AM EST Daphne Shahid MD POINT OF CARE TEST ORDERABLE S Performing Organization Address City/State/[place] [address] POCT Glucose (07/06/2017 12:06 AM EST) athologist Signature POC Glucose 147 65 - 199 [facility] mg/dL [facility] Comment: Supplemental ranges: <140 mg/dL before meals <180 mg/dL all other times of the day Specimen Anatomical Collection Method Collection Time Receive d Time (Source) Location / / Volume Laterality Blood specimen 07/06/2017 12:06 7 (specimen) AM EST 12:06 AM EST Daphne Shahid MD POINT OF CARE TEST ORDERABLE S Performing Organization Address City/State/[place] [address] (ABNORMAL) POCT Glucose (07/05/2017 10:56 PM EST) athologist Signature POC Glucose 200 (H) 65 - 199 [facility] Comment: Supplemental [...] City/State/[place] [address] (ABNORMAL) POCT Glucose (07/05/2017 10:05 PM EST) athologist Signature POC Glucose 225 (H) 65 - 199 [place] R[place] mg/dL [facility] Comment: Supplemental [...] City/State/[place] [address] (ABNORMAL) POCT Glucose (07/05/2017 9:02 PM EST) P athologist Signature POC Glucose 301 (H) 65 - 199 [place] mg/dL [facility] Comment: Supplemental ranges: <140 mg/dL before meals <180 mg/dL all other times of the day Specimen Anatomical Collection Method Collection Time Receive d Time (Source) Location / / Volume Laterality Blood specimen 07/05/2017 9:02 PM 017 9:02 (specimen) EST PM EST Daphne Shahid MD POINT OF CARE TEST ORDERABLE S Performing Organization Address City/State/[place] [address] XR Chest PA or [...] 474 ms MUSE SYSTEM (Bezet) Calculated P [place] 50 degrees MUSE SYSTEM Calculated R [place] -28 degrees MUSE SYSTEM Calculated T [place] 90 degrees MUSE SYSTEM INTERPRETATION Sinus tachycardia [...] - [facility] 6.10 [facility] x10(3)/[facility] L LABORATORY Lymphocytes % 7.0 % [facility] Lymphocytes Abs 0.7 (L) 0.9 - 3.2 [facility] x10(3)/[facility] LABORATORY Monocytes % 3.7 % [facility] Monocyte Abs 0.4 0.3 - 0.9 [facility] x10(3)/[facility] LABORATORY Eosinophils % 0.1 % [facility] Eosinophils Abs 0.0 0.0 - 0.4 [facility] x10(3)/[facility] LABORATORY Basophils % 0.2 % [facility] Basophils Abs 0.0 0.0 - 0.1 [facility] x10(3)/[facility] LABORATORY Immature Gran [...] Gran Abs 0.06 (H) 0.00 - 0.04 x10(3)/[facility] LABORATORY Specimen Anatomical Collection Method Collection Time Receive d Time (Source) Location / / Volume Laterality Blood specimen 07/05/2017 8:20 PM 017 8:27 (specimen) EST PM EST Resulting Agency Comment Spec In Lab Daphne Shahid MD HEMATOLOGY ORDERABLES Performing Organization Address City/State/[place] [address] (ABNORMAL) Hemogram (07/05/2017 8:20 PM EST) Analysis Performed At Patho logist Time Signature WBC 10.3 (H) 4.0 - 9.5 [facility] x10(3)/[facility] LABORATORY RBC 4.64 4.58 - [place] R[place] 5.54 [facility] x10(6)/[facility] LABORATORY Hemoglobin 14.1 13.7 - [facility] 16.5 gm/dL [facility] Hematocrit 40.8 40.5 - [place] R[place] 48.5 % [facility] MCV 87.9 82.9 - [facility] 93.1 fL [facility] MCH 30.4 27.5 - [place] 32.1 pg [facility] MCHC 34.6 32.0 - [place] 35.7 gm/dL [facility] Platelets 204 145 - 357 [facility] x10(3)/[facility] LABORATORY RDWSD 46.1 (H) 36.0 - KATALINA RYAN 45.0 [facility] LABORATORY RDWCV 14.5 (H) 11.4 - [facility] 13.8 % [facility] LABORATORY MPV 9.7 7.6 - 12.9 [facility] LABORATORY nRBC % Auto 0.0 % [facility] LABORATORY nRBC Abs Auto 0.000 0.000 - KATALINA ZHAORYAN 0.000 [facility] x10(3)/[facility] LABORATORY Specimen Anatomical Collection Method Collection Time Receive d Time (Source) Location / / Volume Laterality Blood specimen 07/05/2017 8:20 PM 017 8:27 (specimen) EST PM EST Resulting Agency Comment Spec In Lab Daphne Shahid MD HEMATOLOGY ORDERABLES Performing Organization Address City/[facility]/ZIP Code Phon e Number [address] APTT (07/05/2017 8:20 [...] Shahid MD HEMATOLOGY ORDERABLES Performing Organization Address City/[facility]/ZIP [facility] [place] [address] (ABNORMAL) Cardiac Enzymes (LEB/CGP) (07/05/2017 8:20 PM EST) athologist Signature Troponin-T 2.11 (H) 0.00 - [facility] 0.00 ng/mL [facility] LABORATORY Comment: The 99th percentile [...] additional sample may be indicated. Reference: [place] Definition of Myocardial Infarction. Journal of the [employer] College of Cardiology 2012;60:1581-98 CK, Total 149 0 - 200 unit/L [facility] LABORATORY Specimen Anatomical Collection Method Collection Time Receive d Time (Source) Location / / Volume Laterality Blood specimen 07/05/2017 8:20 PM 017 8:27 (specimen) EST PM EST Resulting Agency Comment Spec In Lab Daphne Shahid MD CHEMISTRY ORDERABLES Performing Organization Address City/[facility]/[place] [address] (ABNORMAL) Magnesium (07/05/2017 8:20 PM EST) P athologist Signature Magnesium 0.68 (L) 0.69 - 1.07 [facility] mmol/L [facility] LABORATORY Specimen Anatomical Collection Method Collection Time Receive d Time (Source) Location / / Volume Laterality Blood specimen 07/05/2017 8:20 PM 017 8:27 (specimen) EST PM EST Resulting Agency Comment Spec In Lab Daphne Shahid MD CHEMISTRY ORDERABLES Performing Organization Address City/State/[place] [address] (ABNORMAL) Basic Metabolic Panel (non-fasting) (07/05/2017 8:20 PM EST) athologist Signature Glucose Lvl 321 (H) 65 - 199 [facility] mg/dL [facility] LABORATORY Comment: [...] [facility] LABORATORY Estimated GFR >60 >=60 [facility] LABORATORY Comment: The reported eGFR should be multiplied b y 1.2 for patients. The MDRD is not an appropriate measure o f renal function for patients with body mass extremes or in patients with acute kidney failure. http://i-Optics.Cequint/DHnkdep http://CorTec/DHMCnkf Specimen Anatomical Collection Method Collection Time Receive d Time (Source) Location / / Volume Laterality Blood specimen 07/05/2017 8:20 PM 017 8:27 (specimen) EST PM EST Resulting Agency Comment Spec In Lab Daphne Shahid MD CHEMISTRY ORDERABLES Performing Organization Address City/State/[place] [address] (ABNORMAL) POCT Glucose (07/05/2017 7:32 PM EST) athologist Signature POC Glucose 296 (H) 65 - 199 [facility] mg/dL [facility] LABORATORY Comment: Supplemental [...] City/State/[place] [address] CARDIAC CATHETERIZATION (07/05/2017 6:47 PM EST) Anatomical Region Laterality Modality Other Specimen (Source) Anatomical Location Collection Method / Collectio n Time Received Time / Laterality Volume Narrative 07/05/2017 7:27 PM EST ?[facility] ? Cardiac Cathete rization/Intervention Report ? Patient Name: Natalya, Gregory ? Procedure Date: 07/05/2017 ? A #: [id number] ? Primary Physician: Clarisa, Jet Sampson ? Case #: [id number] ? File Name: [id number] ? Catheterization Order Number: [id number] ? [facility] ? Final Report [place], [place] ? Patient Name: ? Gregory Natalya ?ID#: ?[id number] ? : ?1945 ? Procedure Date: ? [...] presented with: non -STEMI (w/i 7 days). [place] ?Cardiovascular Society angina c lass was IV. 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 ? Jet Mckenna, M.D. ? Electronically Signed by: Jet Sampson DeVlatrice s, M.D. ? Report Finalized: 07/05/2017 ??19:23 ? Report Last Ammended: 10/26/2017 ??10:29 ? Procedure Note Jet Mckenna MD - 10/26/2017Formatt ing of this note might be different from the original. [facility] Cardiac Catheterization/Intervention Re port Patient Name: Gregory Hoang Procedure Date: 07/05/2017 A #: [id number] Primary Physician: Jet Mckenna Case #: [id number] File Name: [id number] Catheterization Order Number: [id number] [facility] Final Report [place], [place] Patient Name: rGegory Hoang ID#: [id number] 3- : 1945 Procedure Date: July 05, [...] presented with: non-STEMI ( w/i 7 days). [place] Cardi[employer] Society angina class was IV. 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 Jet Mckenna M.D. Electronically Signed [...] Mccollum ? (Age): 1945(72y) Med Rec#: ? [id number] ?Sex: ?M ? Site Loc: ? [facility] ?Ht / Wt: ??173(cm)/86(kg) Pt. Loc: ?[facility] ? BSA: ?2 Study Date: ?? 07/05/2017 ?Pt. Type: Inpatient Tape: ? Referring: Daphne Shahid ([id number]) Referring: MANDA ALCANTAR Reading: Blade [place] ([id number]) Bed Operator: Dayami Paula BA, [facility] Diagnosis: *ICD-10-PCS Non-ST elevation (NSTEMI) m [...] E-wave Vmax ?0.8 ?m/sec ? MV deceleration [id number] ?msec ? MV A-wave Vmax ?0.8 ?m/sec [...] ? Mid-Inferior ?Akinetic ? Mid-Inferoseptal ?Hypokinetic ? [place]-Septal ? Akinetic ? [place]-Anterior ? Hypokinetic ? [place]-Lateral ?Hypokinetic ? [place]-Inferior ? Akinetic ? Mann[place] Choice-Tip ?Akinetic ? This report has been electronically sign ed by: _ Blade [place] MD ? 07/06/2017 08 :53:15 Images reviewed and interpretation verif ied [facility] Cardiac Ultrasound Laboratory Procedure Note Blade [place] MD - 07/06/2017Formatt ing of this note might be different from the original. Procedure: Transthoracic Echocardiogram Patient: NATALYA MCBRIDE(Age): [birth year]72y) Med Rec#: [id number] Sex: M Site Loc: [facility] Ht / Wt: 173(cm)/86(kg) Pt. Loc: U BSA: 2 Study Date: 07/05/2017 Pt. Type: Inpatie nt Tape: Referring: Daphne Shahid ([id number]) Referring: MANDA ALCANTAR Reading: Blade Preston ([id number]) Bed Operator: Dayami Paula BA, [facility] Diagnosis: *ICD-10-PCS Non-ST elevation (NSTEMI) m [...] MV E-wave Vmax 0.8 m/sec MV deceleration [id number] msec MV A-wave Vmax 0.8 m/sec MV [...] Hypokinetic Mid-Posterolateral Hypokinetic Mid-Inferior Akinetic Mid-Inferoseptal Hypokinetic Mann[place] Choice-Septal Akinetic Manns Choice-Anterior Hypokinetic Mann[place] Choice-Lateral Hypokinetic Manns Choice-Inferior Akinetic Manns Choice-Tip Akinetic This report has been electronically sign ed by: _ Blade [place] MD 07/06/2017 08:53:15 Images reviewed and interpretation verif ied [facility] Cardiac Ultrasound Laboratory Daphne Shahid MD ECHO ORDERABLES Differential, Automated (07/05/2017 4:55 PM EST) athologist Signature Neutrophils % 77.0 % [facility] LABORATORY Neutr Abs (ANC) 5.26 1.70 - [facility] 6.10 [facility] x10(3)[facility] LABORATORY Lymphocytes % 13.3 % [facility] Lymphocytes Abs 0.9 0.9 - 3.2 [facility] x10(3)/[facility] LABORATORY Monocytes % 8.2 % [facility] Monocyte Abs 0.6 0.3 - 0.9 [facility] x10(3)/[facility] LABORATORY Eosinophils % 0.7 % [facility] Eosinophils Abs 0.0 0.0 - 0.4 [facility] x10(3)/[facility] LABORATORY Basophils % 0.4 % [facility] Basophils Abs 0.0 0.0 - 0.1 [facility] x10(3)/[facility] LABORATORY Immature Gran % 0.40 [...] - 0.04 x10(3)/[facility] LABORATORY Specimen Anatomical Collection Method Collection Time Receive d Time (Source) Location / / Volume Laterality Blood specimen 07/05/2017 4:55 PM 017 5:24 (specimen) EST PM EST Resulting Agency Comment Spec In Lab Daphne Shahid MD HEMATOLOGY ORDERABLES Performing Organization Address City/State/[place] [address] (ABNORMAL) Hemogram (07/05/2017 4:55 PM EST) Analysis Performed At Patho logist Time Signature WBC 6.8 4.0 - 9.5 [facility] x[facility](3[facility] LABORATORY RBC 4.67 4.58 - KATALINA RYAN 5.54 [facility] x10(6)/[facility] LABORATORY Hemoglobin 14.0 13.7 - [facility] 16.[facility] gm/dL [facility] LABORATORY Hematocrit 41.0 40.5 - [facility] 48.5 % [facility] LABORATORY MCV 87.8 82.9 - [facility] RYAN 93.1 [facility] LABORATORY MCH 30.0 27.5 - K[place]ALINA RYAN 32.1 pg [facility] LABORATORY MCHC 34.1 32.0 - [facility] RYAN 35.7 gm/dL [facility] LABORATORY Platelets 197 145 - 357 [facility] x10(3)/[facility] LABORATORY RDWSD 46.4 (H) 36.0 - [facility] RYAN 45.0 [facility] LABORATORY RDWCV 14.5 (H) 11.4 - [facility] RYAN 13.8 % [facility] LABORATORY MPV 9.7 7.6 - 12.9 [facility] nRBC % Auto 0.0 % [facility] LABORATORY nRBC Abs Auto 0.000 0.000 - [facility] RYAN 0.000 [facility] x10(3)/[facility] LABORATORY Specimen Anatomical Collection Method Collection Time Receive d Time (Source) Location / / Volume Laterality Blood specimen 07/05/2017 4:55 PM 017 5:24 (specimen) EST PM EST Resulting Agency Comment Spec In Lab Daphne Shahid MD HEMATOLOGY ORDERABLES Performing Organization Address City/State/ZIP Code Phon e Number [place] [address] (ABNORMAL) Cardiac Enzymes (LEB/CGP) (07/05/2017 4:55 PM EST) athologist Signature Troponin-T 1.69 (H) 0.00 - KATALINA DAVIS 0.00 ng/mL [facility] LABORATORY Comment: The 99th percentile [...] additional sample may be indicated. Reference: [place] Definition of Myocardial Infarction. Journal of the [place] College of Cardiology 2012;60:1581-98 CK, Total 191 0 - 200 unit/L [facility] LABORATORY Specimen Anatomical Collection Method Collection Time Receive d Time (Source) Location / / Volume Laterality Blood specimen 07/05/2017 4:55 PM 017 5:56 (specimen) EST PM EST Resulting Agency Comment Spec In Lab Daphne Shahid MD CHEMISTRY ORDERABLES Performing Organization Address City/State/[place] [address] (ABNORMAL) pro-Brain Natriuretic Peptide (07/05/2017 4:55 PM EST) athologist Signature ProBNP 1,598 (H) <=125 [facility] pg/mL [facility] LABORATORY Specimen Anatomical Collection Method Collection Time Receive d Time (Source) Location / / Volume Laterality Blood specimen 07/05/2017 4:55 PM 017 5:24 (specimen) EST PM EST Resulting Agency Comment Spec In Lab Daphne Shahid MD CHEMISTRY ORDERABLES Performing Organization Address City/State/ZIP Code Phon e Number [address] Magnesium (07/05/2017 4:55 PM EST) P athologist Signature Magnesium 0.78 0.69 - 1.07 [facility] mmol/L [facility] LABORATORY Specimen Anatomical Collection Method Collection Time Receive d Time (Source) Location / / Volume Laterality Blood specimen 07/05/2017 4:55 PM 017 5:24 (specimen) EST PM EST Resulting Agency Comment Spec In Lab Daphne Shahid MD CHEMISTRY ORDERABLES Performing Organization Address City/[facility]/ZIP Code Phon e Number [address] (ABNORMAL) Basic Metabolic Panel (non-fasting) (07/05/2017 4:55 PM EST) P athologist Signature Glucose Lvl 230 (H) 65 - 199 [facility] mg/dL [facility] LABORATORY Comment: [...] Anion Gap 14 5 - 15 mmol/L [facility] LABORATORY Calcium 8.5 8.5 - 10.5 mg/dL [facility] Linnea [facility] LABORATORY Estimated GFR >60 >=60 KATALINA RYAN [facility] LABORATORY Comment: The reported eGFR should be multiplied b y 1.2 for patients. The MDRD is not an appropriate measure o f renal function for patients with body mass extremes or in patients with acute kidney failure. http://CorTec/nkdep http://CorTec/[facility]SAnkf Specimen Anatomical Collection Method Collection Time Receive d Time (Source) Location / / Volume Laterality Blood specimen 07/05/2017 4:55 PM 017 5:24 (specimen) EST PM EST Resulting Agency Comment Spec In Lab Daphne Shahid MD CHEMISTRY ORDERABLES Performing Organization Address City/[facility] [place] [address] (ABNORMAL) APTT (07/05/2017 4:55 [...] Shahid MD HEMATOLOGY ORDERABLES Performing Organization Address City/[facility]/ZIP [facility] [place] [address] (ABNORMAL) POCT Glucose (07/05/2017 4:53 PM EST) P athologist Signature POC Glucose 208 (H) 65 - 199 [facility] mg/dL [facility] LABORATORY Comment: Supplemental [...] City/State/[place] [address] EKG 12 Lead (07/05/2017 4:32 PM EST) Component Value Ref Range Test Analysis Performed Pathologis t Method Time At Signature Ventricular rate 97 BPM MUSE SYSTEM Atrial Rate 97 BPM MUSE SYSTEM P-R Interval 148 ms MUSE SYSTEM QRS Duration 96 ms MUSE SYSTEM Q-T Interval 364 ms MUSE SYSTEM QTC Calculated 462 ms MUSE SYSTEM (Bezet) Calculated P [place] 48 degrees MUSE SYSTEM Calculated R [place] -33 degrees MUSE SYSTEM Calculated T [place] 98 degrees MUSE SYSTEM INTERPRETATION Normal sinus [...] atherosclerosis of unspecified type of vessel, [place] or graft Cardiomyopathy, ischemic Other specified forms [...] in dextrose 5% 250 mL EST infusion (THERAPIST RADIATION) CONTINUOUS PRN, Starting on Wed07/05/17 at 1837, [...] Jones, VAMSI) 0143 (New Bag - Provider: eDnice Jacobson, RN)0213 (Stopped - Provider: Denice Jacobson, [...] of shift) 0721 (Stopped - Provider: Portillo Jnoes RN - Comment: iv ifiltrated =, see [...]
Routine documented in this encounter Care Teams Animal Nurse Relationship Specialty Start Date End Date Lovely Vicente MD PCP - General 04/16/[address] [place] [address] documented as of this encounter
--- OUTSIDE RECORDS SUMMARY | 2022-04-01 10:11 | XMS_ITS | Encounter Summary ---
:1945 Author Organization [facility] [place] [address] Care Team Providers Name Role Phone Lovely Vicente MD Primary Care Provider Reason for Visit Reason Comments Skin Lesion Encounter Details Date Type Department Care Team Description 11/24/2016 [facility] uncertain behavior of skin; Road IIIMD Pigmented skin lesion of uncertain natur e; [address] [facility] [place] of [place] [address] [facility] SIMÓN-DERMATOLGY [place], [place] [address] Social History Tobacco Use Types [...] or concerns, please call the office at [phone]. If it is after 5PM, or a holiday or weekend, please call [phone] and ask for the Hvac Maintenance Technician on-call. documented in this encounter Progress Notes [...] 71 y.o. year old male.Established patient of [employer] Last seen 06/05/16. Here today for new [...] encounter. Rigoberto Garcia MD Section of Dermatology [facility] documented in this encounter Plan of Treatment Upcoming Encounters Date Type Specialty Care Team Description 05/28/2022 Appointment Cardiology Zulma Dolan MD [facility] er [address] [place] 0[address] (Wo rk) 05/28/2022 Laboratory Appointment Lab 05/28/2022 Office Visit Cardiology Zulma Dolan MD [facility] [address] [place] [address] Liz Poole PA [facility] [place] [address] 06/10/2022 Office Visit Dermatology Laura Scherer MD [facility] ER [address]-DERMAT [place], [place] [address] (Wo rk) documented as [...] Value Ref Test Analysis Performed At [facility] gist Range Method Time Signature Surgical [id number] ?Location: [facility] Report The signing pathologist has (i) [...] Organization Address City/State/[place] [address] Specimen to Pathology (NON-OR) (11/24/2016 8:28 AM EDT) Specimen Anatomical Collection Method Collection Time Receive d Time (Source) Location / / Volume Laterality AP Specimen 11/24/2016 8:28 AM 7 9:29 EDT AM EDT Narrative [facility] LABORAT ORY - 11/24/2016 9:29 AM EDT Specimen requisition ordered. ??Separate Pathology report to follow Resulting Agency Comment Spec In Lab Rigoberto Garcia III, MD PATHOLOGY/CYTOLOGY ORDERABLE S Performing Organization Address City/State/ZIP [place] [address] documented in this encounter Visit Diagnoses Diagnosis Neoplasm of uncertain behavior of skin Pigmented skin lesion of uncertain natur e History of melanoma Personal history of malignant melanoma o f skin documented in this encounter Care Teams Casting Room Helper Relationship Specialty Start Date End Date Lovely Vicente MD PCP - General 04/16/[address] [place] [address] documented as of this encounter
--- OUTSIDE RECORDS SUMMARY | 2022-04-01 10:11 | XMS_ITS | Encounter Summary ---
:1945 Author Organization [facility] [place] [address] Care Team Providers Name Role Phone Lovely Vicente MD Primary Care Provider Encounter Details Date Type Department Care Team Description 11/28/2016 Telephone Dermatology at [facility] Rigoberto Garcia III, [address] [place] [address] [facility] [phone] [facility] SIMÓN-DERMAT [place], [place] [address] (Wo rk) Social History Tobacco Use Types Packs/Day Years Used Date Former Smoker Smokeless Tobacco: Never Used Alcohol Use Standard Drinks/Week Comments No 0 (1 standard drink = 0.6 oz pure alcoho l) Sex Assigned at Date Recorded Not on file documented as of this encounter Miscellaneous Notes Telephone Encounter - Rigboerto Garcia III, MD - 11/28/2016 3:06 PM [...] provider. Rigoberto Garcia MD Section of Dermatology [facility] documented in this encounter Plan of Treatment Upcoming Encounters Date Type Specialty Care Team Description 05/28/2022 Appointment Cardiology Zulma Dolan MD [facility] Dr [place], [place] [address] (Wo rk) 05/28/2022 Laboratory Appointment Lab 05/28/2022 Office Visit Cardiology Zulma Dolan MD [facility] [place] [address] Liz Poole PA [facility] [place] [address] 06/10/2022 Office Visit Dermatology Laura Scherer MD [facility] DR TEJA MARIE-DERMAT [place], [place] [address] (Wo rk) documented as of this encounter Visit Diagnoses Not on filedocumented in this encounter Care Teams Registered Private Duty Nurse Relationship Specialty Start Date End Date Lovely Vicente MD PCP - General 04/16/[address] [place] [address] documented as of this encounter
--- OUTSIDE RECORDS SUMMARY | 2022-04-01 10:11 | XMS_ITS | Encounter Summary ---
:1945 Author Organization [facility] [place] [address] Care Team Providers Name Role Phone Lovely Vicente MD Primary Care Provider Encounter Details Date Type Department Care Team Description 09/03/2016 Laboratory Appointment Lab at [facility] Hx of [facility] [place] [phone] Social History Tobacco Use Types Packs/Day Years Used Date Former Smoker Smokeless Tobacco: Never Used Alcohol Use Standard Drinks/Week Comments No 0 (1 standard drink = 0.6 oz pure alcoho l) Sex Assigned at Date Recorded Not on file documented as of this encounter Plan of Treatment Upcoming Encounters Date Type Specialty Care Team Description 05/28/2022 Appointment Cardiology Zulma oDlan MD [facility] er [address] [place] [address] (Wo rk) 05/28/2022 Laboratory Appointment Lab 05/28/2022 Office Visit Cardiology Zulma Dolan MD [facility] [place] [address] Liz Poole PA [facility] [place] [address] 06/10/2022 Office Visit Dermatology Laura Scherer MD [facility] ER DR TE[address]-DERMAT [place], [place] [address] (Wo rk) documented as [...] AM EST) athologist Signature Thyroglobulin <0.4 <=54.9 [facility] ng/mL [facility] LABORATORY Comment: Interpret with caution. Tg [...] than those obtained with T4 withdrawal protocol ([place] BR et al. J Clin Endo Metab 1999;84:3756-8563). Assay performed using the DPC Immulite T [...] Address City/State/ZIP Code Phon e Number [address] TSH (09/03/2016 11:07 AM EST) P athologist Signature TSH 3.01 0.27 - 4.20 [facility] mcIU/mL [facility] LABORATORY Specimen Anatomical Collection Method Collection Time Receive d Time (Source) Location / / Volume Laterality Blood specimen 09/03/2016 11:07 7 (specimen) AM EST 11:22 AM EST Resulting Agency Comment Spec In Lab Luz Prescott MD CHEMISTRY ORDERABLES Performing Organization Address City/[facility]/ZIP [facility] [place] [address] documented in this encounter Visit Diagnoses Diagnosis Hx of papillary thyroid carcinoma Personal history of malignant neoplasm o f thyroid documented in this encounter Care Teams Lumber Stacker Operator Relationship Specialty Start Date End Date Lovely Vicente MD PCP - General 04/16/15 [address] [place] [address] documented as of this encounter
--- OUTSIDE RECORDS SUMMARY | 2022-04-01 10:12 | XMS_ITS | Encounter Summary ---
:1945 Author Organization [facility] [place] [address] Care Team Providers Name Role Phone Lovely Vicente MD Primary Care Provider Reason for Visit Reason Comments Medication Refill Encounter Details Date Type Department Care Team Description 05/10/2015 Refill Endocrinology at [facility] Rosalind Covarrubias, [facility] [place] [address] [facility] [phone] ENDOCRINOLOGY [place], [place] [address] (Wo rk) Social History Tobacco [...] MD [facility] [place] [address] [place], [place] [address] (Wo rk) 05/28/2022 Laboratory Appointment Lab 05/28/2022 Office Visit Cardiology Zulma Dolan MD [facility] [place] [address] Liz Poole PA [facility] [place] [address] 06/10/2022 Office Visit Dermatology Laura Scherer MD [facility] ER DR TEJA [address] [place], [place] [address] (Wo rk) documented as of this encounter Visit Diagnoses Not on filedocumented in this encounter Care Teams Labels Molder Relationship Specialty Start Date End Date Lovely Vicente MD PCP - General 04/16/[address] [place] [address] documented as of this encounter
--- OUTSIDE RECORDS SUMMARY | 2022-04-01 10:12 | XMS_ITS | Encounter Summary ---
:1945 Author Organization [facility] [place] [address] Care Team Providers Name Role Phone Angela Holliday STACIE Primary Care Provider Encounter Details Date Type Department Care Team Description 04/04/2013 Telephone Urology at [facility] Parker Sanchez MD [facility]3] [place] [address] UROLOGY DEPT [phone] [place], [place] [address] (Wo rk) Social History Tobacco [...] [facility] [address] [place], [place] [address] (Wo rk) 05/28/2022 Laboratory Appointment Lab 05/28/2022 Office Visit Cardiology Zulma Dolan MD [facility] [place] [address] Liz Poole PA [facility] [place] [address] 06/10/2022 Office Visit Dermatology Laura Scherer MD [facility] DR [address] [place], [place] [address] (Wo rk) documented as of this encounter Visit Diagnoses Not on filedocumented in this encounter Care Teams Superintendent Horticulture Relationship Specialty Start Date End Date Angela Holliday APRN PCP - General 01/25/13 04/15/[address] [place] [address] documented as of this encounter
--- OUTSIDE RECORDS SUMMARY | 2022-04-01 10:12 | XMS_ITS | Encounter Summary ---
:1945 Author Organization [facility] [place] [address] Care Team Providers Name Role Phone MiyaAngela STACIE Primary Care Provider Reason for Visit Reason Comments Post Op voiding trial Encounter Details Date Type Department Care Team Description 04/05/2013 Office Visit Urology at [facility] Darryl Egan, UTI ([facility] MD tract infection) [facility] (Primary Dx) [place] [address] UROLOGY DEPT [phone] [place], [place] [address] Social History Tobacco Use Types [...] Cardiology Zulma Dolan MD [facility] [place], [place] [address] (Wo rk) 05/28/2022 Laboratory Appointment Lab 05/28/2022 Office Visit Cardiology uZlma Dolan MD [facility] [place] [address] Liz Poole PA [facility] [place] [address] 06/10/2022 Office Visit Dermatology Laura Scherer MD [facility] DR [address] [place], [place] [address] (Wo rk) documented as of this encounter Procedures Procedure Name Priority Date/Time Associated Diagnosis Comme nts URINE CULTURE Routine 04/05/2013 11:48 AM UTI (lower urinary R esults for this EDT tract infection) procedure a re in the results section . documented in this encounter Results Urine culture Clean Catch Urine (04/05/2013 11:48 AM EDT) Component Value Ref Test Analysis Performed At [facility] Method Time Signature Urine Culture CERNER ? Patient Name: GREGORY HOANG ? Ordered By: DARRYL [facility]AN [facility] ? MR#: [id number] ?LOC: ??5B ? /Sex: ??1945 (68 years), [...] S ? Patient: GREGORY HOANG ? MR#: [id number] ? FOOTNOTES ? (1) ? This organism [...] [place] [address] RAKESH WALKER documented in this encounter Visit Diagnoses Diagnosis UTI (lower urinary tract infection) - Pr imary Urinary tract infection, site not specif ied documented in this encounter Care Teams Product Lister Relationship Specialty Start Date End Date Angela Holliday APRN PCP - General 01/25/13 04/15/[address] [place] [address] documented as of this encounter
--- OUTSIDE RECORDS SUMMARY | 2022-04-01 10:12 | XMS_ITS | Encounter Summary ---
:1945 Author Organization [place] [address] Care Team Providers Name Role Phone Unknown Primary Care Provider Unavailable Reason for Visit Reason Comments Other Encounter Details Date Type Department Care Team Description 10/05/2012 Telephone Dermatology at [facility] Rigoberto Garcia III, [address] [place] [address] [facility] [phone] [address] [place] [id number] (Wo rk) Social History Tobacco Use Types [...] Description 05/28/2022 Appointment Cardiology Zulma Dolan MD [facility] [place], [place] [address] (Wo rk) 05/28/2022 Laboratory Appointment Lab 05/28/2022 Office Visit Cardiology Zulma Dolan MD [facility] [place] [address] Liz Poole PA [facility] [place] [address] 06/10/2022 Office Visit Dermatology Laura Scherer MD [facility] DR [address]MAT [place], [place] [address] (Wo rk) documented as of this encounter Visit Diagnoses Not on filedocumented in this encounter Care Teams Playground Supervisor Relationship Specialty Start Date End Date Unknown PCP - General 10/04/12 01/24/13 None documented as of this encounter
--- OUTSIDE RECORDS SUMMARY | 2022-04-01 10:12 | XMS_ITS | Encounter Summary ---
:1945 Author Organization [facility] [place] [address] Care Team Providers Name Role Phone MiyaAngela STACIE Primary Care Provider Reason for Visit Reason Comments Urinary Retention Encounter Details Date Type Department Care Team Description 05/16/2013 Follow-Up Urology at [facility] Blade Smith, Retention of urine [facility] (Primary Dx) [place] [address] UROLOGY DEPT [place] [address] (Wo rk) Social History Tobacco Use Types [...] Dolan MD [facility] [address] [place], [place] [address] (Wo rk) 05/28/2022 Laboratory Appointment Lab 05/28/2022 Office Visit Cardiology Zulma Dolan MD [facility] [place] [address] Liz Poole PA [facility] [place] [address] 06/10/2022 Office Visit Dermatology Laura Scherer MD [facility] DR [address] [place], [place] [address] (Wo rk) documented as of this encounter Visit Diagnoses Diagnosis Retention of urine - Primary Retention of urine, unspecified documented in this encounter Care Teams Center Customer Service Associate Relationship Specialty Start Date End Date Angela Holliday APRN PCP - General 01/25/13 04/15/[address] [place] [address] documented as of this encounter
--- OUTSIDE RECORDS SUMMARY | 2022-04-01 10:12 | XMS_ITS | Encounter Summary ---
:1945 Author Organization [facility] [place] [address] Care Team Providers Name Role Phone NeilSom conner STACIE Primary Care Provider Reason for Visit Reason Comments Establish Care OBST GOITER Encounter Details Date Type Department Care Team Description 01/25/2013 Office Visit General Surgery at [facility] er colloid, toxic, [facility] MD Eliseo nodular (Primary Dx) [facility] [place], [place] GENERAL SURGERY [id number] [place], [place] [address] [phone] Social History Tobacco Use Types Packs/Day Years [...] the thyroid gland were obtained using a SonoSi[employer]inal[employer] MicroMaxx and an HFL38/13-6 broadband linear array [...] agrees to proceed. Will sign in through [facility]. Consent is signed. Send copy to Dr. SOM HOLLIDAY APRN and Elijah Elias MD. documented in this encounter Plan of Treatment Upcoming Encounters Date Type Specialty Care Team Description 05/28/2022 Appointment Cardiology Zulma Dolan MD [facility] [address] [place] [address] (Wo rk) 05/28/2022 Laboratory Appointment Lab 05/28/2022 Office Visit Cardiology Zulma Dolan MD [facility] [place] [address] Liz Poole PA [facility] [place] [address] 06/10/2022 Office Visit Dermatology Laura Scherer MD [facility] [address] [place], [place] [address] (Wo rk) documented as of [...] 406 ms MUSE SYSTEM (Bezet) Calculated P [place] 52 degrees MUSE SYSTEM Calculated R [place] 0 degrees MUSE SYSTEM Calculated T [place] 40 degrees MUSE SYSTEM INTERPRETATION Normal sinus [...] storm documented in this encounter Care Teams Gear Repairer Relationship Specialty Start Date End Date Som Holliday APRN PCP - General 01/25/13 04/15/[address] [place] [address] documented as of this encounter
--- OUTSIDE RECORDS SUMMARY | 2022-04-01 10:12 | XMS_ITS | Encounter Summary ---
:1945 Author Organization [facility] [place] [address] Care Team Providers Name Role Phone MiyaLokeshAngela STACIE Primary Care Provider Encounter Details Date Type Department Care Team Description 01/16/2014 Hospital Encounter [place] [facility] Nohemi Swann, [facility] [place] [address] [facility] [phone] [place] [facility] DEPT. [place], [place] [address] Social History Tobacco Use Types [...] you need to be checked. [facility] [phone] 8a-5p Same Day Endo [phone] 7a-8p Otherwise contact [phone] and ask to speak to the backhaul driver mohs surgeon Follow up care is a [place] part [...] Swann MD - 01/16/2014 9:49 AM EDT [facility] Oper[place] Note Patient Name: Gregory Fatima : [id number] MR#: [id number] Case Date: 01/16/2014 Surgeon: Surgeon(s) and Role: * Nohemi Swann MD - Primary Preoperative diagnosis: 5 yr surv. Full procedure note is documented under the Procedure section of eDH. documented in this encounter Plan of Treatment Upcoming Encounters Date Type Specialty Care Team Description 05/28/2022 Appointment Cardiology Zulma Dolan MD [facility] [address] [place], [place] [address] (Wo rk) 05/28/2022 Laboratory Appointment Lab 05/28/2022 Office Visit Cardiology Zulma Dolan MD [facility] [place] [address] Liz Poole PA [facility] [place] [address] 06/10/2022 Office Visit Dermatology Laura Scherer MD [facility] [address] TE[address] [place], [place] [address] (Wo rk) documented as of this encounter [...] Pathology Report (01/16/2014 9:53 AM EDT) [facility] Method Time Signature Surgical CERNER Pathology ? [facility] Report ? Provider: ?? NOHEMI SWANN ?Pt. Name: ?? MALICKEliseo RT, GREGORY E ? Acc #: ?[id number] ?Pt. MRN: ?[id number] ? Col Date: ?? 4 ? /Sex: [...] City/State/ZIP Code Phon e Number [place] [phone] RAKESH WALKER Specimen to [...] Address City/State/[place] [address] [facility] Specimen to Pathology (surgical or [...] [facility]/[place] [address] CERNER MILLENNIUM COLONOSCOPY (01/16/2014 7:25 AM EDT) [facility] gist Method Time Signature COLONOSCOPY [facility] Endoscopy Patient Name: Gregory Fatima ? Procedure Date: 01/16/2014 7:25 AM ? N: [id number] ? Date of : 1945 ? Age: 68 ? Order #: [id number] ? Procedure: ? Colonoscopy Indications: ? High risk colon cancer surveillance : ? 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 dm on metformin with bs ~ 110 this ? am,s/p melanoma years ago, os a, ? goiter s/p surgery, [facility] Providers: ? Nohemi Swann MD, Blanca [...] Laterality 01/16/2014 7:25 AM EDT Angela Sotelo [facility] SURGICAL ORDERABLES Performing Organization Address City/State/ZIP [...] Routine documented in this encounter Care Teams Continuous Yarn Dyeing Machine Operator Relationship Specialty Start Date End Date Angela Sotelo APRN PCP - General 01/25/13 04/15/[address] [place] [address] documented as of this encounter
--- OUTSIDE RECORDS SUMMARY | 2022-04-01 10:12 | XMS_ITS | Encounter Summary ---
:1945 Author Organization [facility] [place] [address] Care Team Providers Name Role Phone Som Holliday APRN Primary Care Provider Encounter Details Date Type Department Care Team Description 04/11/2014 Procedure visit Gastroenterology at [facility], CONV Esophageal reflux [facility] Luz Winchester RN (Primary Dx) [place] [address] Social History Tobacco Use Types Packs/Day Years Used Date Former Smoker Alcohol Use Standard Drinks/Week Comments No 0 (1 standard drink = 0.6 oz pure alcoho l) Sex Assigned at Date Recorded Not on file documented as of this encounter Progress Notes Adalid Can MD - 04/13/2014 3:43 PM EDT ESOPHAGEAL MANOMETRY Don Fatima Male, 69 yrs, 1945 PCP: SOM HOLLIDAY TOOLROOM HELPER: NONE STUDY DATE: 04/11/14 PROVIDER: Adal[place] ([id number]) INDICATION Reflux; preoperative evaluation. METHODS Stationary esophageal manometry was performed with the [employer] esophageal motility system utilizing the Polygram [...] of the esophagus. Adalid Can, PhD, MD electrical estimator, [facility] [employer] Section of Gastroenterology and Hepatology [facility] [place] [address] V: [phone] F: [phone] [facility]/gabriela CC/EC: PCP - staff msg copy 04/13/14 Henrique Taylor MD - fax copy 04/13/14 Luz Keller RN - 04/11/2014 8:14 AM EDT Esophageal manometry performed without difficulty and Was well tolerated. documented in this encounter Plan of Treatment Upcoming Encounters Date Type Specialty Care Team Description 05/28/2022 Appointment Cardiology Zulma Dolan MD [facility] [place], [place] [address] (Wo rk) 05/28/2022 Laboratory Appointment Lab 05/28/2022 Office Visit Cardiology Zulma Dolan MD [facility] [place] [address] Liz Poole PA [facility] [place] [address] 06/10/2022 Office Visit Dermatology Laura Scherer MD [facility] [address] [place], [place] [address] (Wo rk) documented as of this encounter Visit Diagnoses Diagnosis Esophageal reflux - Primary documented in this encounter Care Teams Technical Cable Jointer Relationship Specialty Start Date End Date Som Holliday APRN PCP - General 01/25/13 04/15/[address] [place] [address] documented as of this encounter
--- OUTSIDE RECORDS SUMMARY | 2022-04-01 10:12 | XMS_ITS | Encounter Summary ---
:1945 Author Organization [facility] [place] [address] Care Team Providers Name Role Phone Anegla Holliday APRN Primary Care Provider Encounter Details Date Type Department Care Team Description 03/28/2013 Surgery Main Operating Room Mesha Mcknight, THYROIDECTOMY, [facility] 15.04[facility] ([facility]3] DR Siddiqu[place] [address] [place] [address] [phone] (Wo rk) Social History Tobacco Use Types [...] please call the General Surgery nurse at [phone], since this may mean that you need morecalcium. Follow-up Appointment: Will be scheduled with Dr. Mcknight in 6 weeks Date and time as well as any required labs will be mailed to you Please call [phone] to confirm date and time of your [...] by calcium supplementation. Phone number for questions: [phone] before 5 PM weekdays [phone] after 5 PM and on weekends/holidays Please follow up with Urology as per their recommendations for Bob removal AttachmentsThe following attachments cannot be sent through Care Everywhere. THYROIDECTOMY: WHAT TO EXPECT AT HOME (URDU)URINARY CATHETER CARE: AFTER YOUR VISIT (URDU)documented in this encounter Medications at Time of [...] 03/28/2013 3:43 PM EDT [facility] [place]ative Note Patient Name: Gregory Fatima : [id number] MR#: [id number] Case Date: 03/28/2013 Surgeon: Surgeon(s) and Role: [...] Operative Note Patient Name: Gregory Fatima : [id number] MR#: [id number] Case Date: 03/28/2013 Surgeon: Surgeon(s) and Role: [...] Appointment Cardiology Zulma Dolan MD [facility] er Dr [place] [address] (Wo rk) 05/28/2022 Laboratory Appointment Lab 05/28/2022 Office Visit Cardiology Zulma Dolan MD [facility] [place] [address] Liz Poole PA [facility] [place] [address] 06/10/2022 Office Visit Dermatology Laura Scherer MD [facility] ER DR TEJA GR-DERMAT [place] [address] (Wo rk) documented as of this encounter [...] Organization Address City/State/[place]IP [place] [address] CERNER MILLENNIUM (ABNORMAL) POCT [...] [facility]/[place]IP [place] [address] CERNER MILLENNIUM (ABNORMAL) POCT [...] [facility]/ZIP Code Phon e Number [address] CERNER MILLENNIUM (ABNORMAL) POCT [...] [facility]/ZIP Code Phon e Number [address] CERNER MILLENNIUM (ABNORMAL) POCT [...] [facility]/ZIP Code Phon e Number [address] CERNER MILLENNIUM (ABNORMAL) POCT [...] [facility]/ZIP Code Phon e Number [address] CERNER MILLENNIUM (ABNORMAL) POCT [...] [facility]/ZIP Code Phon e Number [address] CERNER MILLENNIUM (ABNORMAL) POCT [...] [facility]/ZIP Code Phon e Number [address] [facility] Specimen to Pathology (surgical or derm) (03/28/2013 12:14 PM EDT) Specimen Anatomical Collection Method Collection Time Receive d Time (Source) Location / / Volume Laterality AP Specimen 03/28/2013 12:14 03/28/2013 PM EDT 12:14 PM EDT Narrative CERNER MILLENNIUM - 03/28/2013 12:14 PM EDT Specimen requisition ordered. ??Separate Pathology report to follow Mesha Mcknight MD PATHOLOGY/CYTOLOGY ORDERABLE S Performing Organization Address City/[facility]/ZIP Code Phon e Number [address] [facility] Pathology Addendum Report (03/28/2013 12:03 PM EDT) Component Value Ref Test Analysis Performed At [facility] gist Range Method Time Signature Addendum CERNER Report ? [facility] ? Provider: ?? MESHA MCKNIGHT Pt. Name: ?? GREGORY FATIMA ? Acc #: ?[id number] ?Pt. MRN: ?[id number] ? Col Date: ?? 03/28/2013 ?/Sex: ?1945,(68 [...] Organization Address City/State/[place]IP [place] [address] [facility] Surgical Pathology Report (03/28/2013 12:03 PM EDT) Component Value Ref Test Analysis Performed At [facility] gist Range Method Time Signature Surgical [facility] Pathology ? [facility] Report ? Provider: ?? MESHA MCKNIGHT Pt. Name: ?? GREGORY FATIMA ? Acc #: ?[id number] ?Pt. MRN: ?[id number] ? Col Date: ?? 03/28/2013 ?/Sex: ?1945,(68 [...] of hemorrhage and ? calcifications. ? [facility] ? Provider: ?? MESHA MCKNIGHT Pt. Name: ?? GREGORY FATIMA ? Acc #: ?[id number] ?Pt. MRN: ?[id number] ? Col Date: ?? 03/28/2013 ?/Sex: ?1945,(68 years),Male ? Rec Date: ?? 03/28/2013 ?LOC: ?[facility] ? SURGICAL PATHOLOGY ? SECTIONS/PROCESSING: Wellness Manager sections are subm itted. (R6) ? [...] Organization Address City/State/[place] [address] CERNER MILLENNIUM Frozen Section Report (03/28/2013 12:03 PM EDT) Component Value Ref Test Analysis Performed At [facility] gist Range Method Time Signature Frozen CERNER Section ? [facility] Report ? Provider: ?? MESHA MCKNIGHT Pt. Name: ?? GREGORY FATIMA ? Acc #: ?[id number] ?Pt. MRN: ?[id number] ? Col Date: ?? 03/28/2013 ?/Sex: ?1945,(68 [...] PATHOLOGY/CYTOLOGY ORDERABLE S Performing Organization Address City/[facility]/[place] [address] CERNER MILLENNIUM POCT Glucose [...] [facility]/ZIP Code Phon e Number [address] CERNER MILLENNIUM Specimen to [...] PATHOLOGY/CYTOLOGY ORDERABLE S Performing Organization Address City/[facility]/ZIP [place] [address] CERNER MILLENNIUM Antibody screen (03/28/2013 9:37 AM EDT) Analysis Performed At Patho logist Time Signature Ab Screen Negative CERNER Interp MILLENNIUM Expires at [id number] CERNER 968 on: MILLENNIUM Specimen Anatomical Collection Method Collection Time Receive d Time (Source) Location / / Volume Laterality Blood specimen 03/28/2013 9:37 AM 013 9:37 (specimen) EDT AM EDT Resulting Agency Comment Spec In Lab Mesha Mcknight MD BLOOD BANK ORDERABLES Performing Organization Address City/[facility]/[place] [address] [facility] GRISELDAENNIUM ABO/Rh Typing (03/28/2013 9:37 AM EDT) athologist Signature ABORh Type O Pos [facility] Specimen Anatomical Collection Method Collection Time Receive d Time (Source) Location / / Volume Laterality Blood specimen 03/28/2013 9:37 AM 013 9:37 (specimen) EDT AM EDT Resulting Agency Comment Spec In Lab Mesha Mcknight MD BLOOD BANK ORDERABLES Performing Organization Address City/[facility]/ZIP Code Phon e Number [address] [facility] GRISELDAPHOEN[facility]IUM Differential, Automated (03/28/2013 9:34 AM EDT) athologist [...] City/State/ZIP Code Phon e Number [place] [phone]OS[address] CERNER MILLENNIUM (ABNORMAL) Basic [...] were not validated at [facility]. Results from pediatri c patients [...] Organization Address City/State/[place] [address] CERNER MILLENNIUM (ABNORMAL) CBC [...] MPV 9.3 9.0 - 12.0 CERNER fL [facility] Specimen Anatomical Collection Method Collection Time Receive d Time (Source) Location / / Volume Laterality Blood specimen 03/28/2013 9:34 AM 013 9:38 (specimen) EDT AM EDT Resulting Agency Comment Spec In Lab Mesha Mcknight MD HEMATOLOGY ORDERABLES Performing Organization Address City/[facility]/ZIP Code Phon e Number [address] RAKESH VILLALOBOSPHOEN[facility] POCT Glucose (03/28/2013 9:17 AM EDT) athologist [...] [facility]/ZIP Code Phon e Number [address] [facility] Specimen to Pathology (surgical or derm) (03/28/2013 8:55 AM EDT) Specimen Anatomical Collection Method Collection Time Receive d Time (Source) Location / / Volume Laterality AP Specimen 03/28/2013 8:55 AM 3 8:54 EDT AM EDT Narrative [facility] GRISELDAENNIUM - 03/28/2013 8:55 AM E DT Specimen requisition ordered. ??Separate Pathology report to follow Mesha Mcknight MD PATHOLOGY/CYTOLOGY ORDERABLE S Performing Organization Address City/[facility]/ZIP Code Phon e Number [address] RAKESH WALKER documented in [...] RN) 0900 (Given - Provider: Radha Yao [facility], VAMSI) 2.5 mg, Oral, DAILY, First [...] Baxter, VAMSI)1341 (Given - Provider: Angela Breaux, VAMSI)1420 (Given - Provider: Cami Baxter [...] documented in this encounter Care Teams Clinical Psychiatrist Relationship Specialty Start Date End Date Angela Holliday APRN PCP - General 01/25/13 04/15/15 [address] [place] [address] documented as of this encounter
--- OUTSIDE RECORDS SUMMARY | 2022-04-01 10:12 | XMS_ITS | Encounter Summary ---
:1945 Author Organization [facility] [place] [address] Care Team Providers Name Role Phone Lovely Vicente MD Primary Care Provider Reason for Visit Reason Comments Thyroid Cancer Encounter Details Date Type Department Care Team Description 06/05/2015 Office Visit Endocrinology at [facility] Albertina Prescott, History of papillary [facility] MD Luz adenocarcinoma of [facility] thyroid (Primary Dx) [place] [address] CENTER [phone] [place] [address] Social History Tobacco Use Types Packs/Day Years [...] the thyroid gland were obtained using a [employer] Bio ultrasound machine. All measurements are given as AP x Transverse x Longitudinal Right Lobe: Absent Left Lobe: Absent Isthmus: Absent Central/Lateral neck: no morphologically abnormal lymph nodes. Impression: No sonographic evidence of recurrence. LUZ PRESCOTT MD Car Varnishershot grinder operator Section of Endocrinology [facility] Luz Prescott MD [...] Drum (ACCU-CHEK COMPACT TEST) Strip by [facility].(Non-Drug; Combo Route) route 2 times daily. Yes [...] --f/u in 1 year LUZ PRESCOTT MD Car Varnishershot grinder operator Section of Endocrinology [facility] documented [...] MD [facility] Dr [place], [place] [address] (Wo rk) 05/28/2022 Laboratory Appointment Lab 05/28/2022 Office Visit Cardiology Zulma Dolan MD [facility] [place] [address] Liz Poole PA [facility] [place] [address] 06/10/2022 Office Visit Dermatology Laura Scherer MD [facility] ER DR [address]-DERMAT [place]LOGY [place], [place] [address] (Wo rk) documented as [...] athologist Signature Thyroglobulin 0.6 <=54.9 CERNER ng/mL [facility] Comment: Interpret with caution. Tg levels may [...] BR et al. J Clin Endo Metab 1999;84:6997-6279). Assay performed using the DPC Immulite T [...] Organization Address City/State/[place] [address] CERNER MILLENNIUM (ABNORMAL) TSH (06/05/2015 9:04 AM EST) P athologist Signature TSH 5.88 (H) 0.27 - 4.20 CERNER mcIU/mL MILLENNIUM Specimen Anatomical Collection Method Collection Time Receive d Time (Source) Location / / Volume Laterality Blood specimen 06/05/2015 9:04 AM 015 9:15 (specimen) EST AM EST Resulting Agency Comment Spec In Lab Luz Prescott MD CHEMISTRY ORDERABLES Performing Organization Address City/[facility]/[place] [address] CERNER MILLENNIUM documented in this encounter Visit Diagnoses Diagnosis 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
--- OUTSIDE RECORDS SUMMARY | 2022-04-01 10:12 | XMS_ITS | Encounter Summary ---
:1945 Author Organization [place] [address] Care Team Providers Name Role Phone Angela Holliday APRN Primary Care Provider Reason for Visit Reason Comments Skin Check Encounter Details Date Type Department Care Team Description 07/31/2013 Follow-Up Dermatology at [facility] Forman eoplasm of unspecified nature of bone, soft tissue, and skin (Primary Dx); Abdelrahman HOOPER MD Seborrheic psoriasis- scalp and ingtergl uteal area; [address] [facility] [place]typical [place] [address] [facility] [place], [place] [address] (Wo rk) Social History Tobacco [...] Rigoberto Albarran MD Section of Dermatology [facility] documented in this encounter Plan of Treatment Upcoming Encounters Date Type Specialty Care Team Description 05/28/2022 Appointment Cardiology Zulma Dolan MD [facility] [address] [place] [address] (Wo lissa) 05/28/2022 Laboratory Appointment Lab 05/28/2022 Office Visit Cardiology Zulma Dolan [place] [address] Liz Poole PA [facility] [place] [address] 06/10/2022 Office Visit Dermatology Laura Scherer MD [facility] DR TEJA GR-DERMAT [place]LOG[place], [place] [address] (Wo rk) Scheduled Orders Name [...] Component Value Ref Test Analysis Performed At [facility] gist Range Method Time Signature Surgical CERNER Pathology ? [facility] Report ? Provider: ?? RIGOBERTO ALBARRAN III Pt. Name: ?? GREGORY HOANG ?A ? Acc #: ?[id number] ? Pt. ? Col Date: ?? 07/31/2013 [...] negative controls. ??These ? IHC studies provide [facility] pathologist with adjunctive diagnostic information. [...] x 0.8 x 0.2 cm. ? [facility] ? Provider: ?? DEION III, RIGOBERTO Pt. Name: ?? GREGORY HOANG ?A ? Acc #: ?[id number] ? Pt. ? Col Date: ?? 07/31/2013 [...] City/[facility]/ZIP Code Phon e Number [address] CERNER MILLENNIUM Specimen to [...] City/[facility]/[place] [address] CERNER MILLENNIUM documented in this encounter Visit Diagnoses Diagnosis Neoplasm of unspecified nature of bone, soft tissue, and skin - Primary Seborrheic psoriasis- scalp and ingtergl uteal area Other psoriasis Atypical nevus of abdominal wall Benign neoplasm of skin of trunk, except scrotum documented in this encounter Care Teams Making Line Worker Relationship Specialty Start Date End Date Angela Holliday APRN PCP - General 01/25/13 04/15/[address] [place] [address] documented as of this encounter
--- OUTSIDE RECORDS SUMMARY | 2022-04-01 10:12 | XMS_ITS | Encounter Summary ---
:1945 Author Organization [facility] [place] [address] Care Team Providers Name Role Phone Angela Holliday APRN Primary Care Provider Encounter Details Date Type Department Care Team Description 03/30/2013 Telephone General Surgery at [facility] Cliff Nevarez, [place] [address] Social History Tobacco Use Types Packs/Day [...] Zulma Dolan MD [facility] Dr [place], [place] [address] (Wo rk) 05/28/2022 Laboratory Appointment Lab 05/28/2022 Office Visit Cardiology Zulma Dolan MD [facility] [place] [address] Liz Poole PA [facility] [place] [address] 06/10/2022 Office Visit Dermatology Laura Scherer MD [facility] DR TEJA GR-DERMAT [place], [place] [address] (Wo rk) documented as of this encounter Visit Diagnoses Not on filedocumented in this encounter Care Teams Balancing Machine Operator Relationship Specialty Start Date End Date Angela Holliday APRN PCP - General 01/25/13 04/15/[address] [place] [address] documented as of this encounter
--- OUTSIDE RECORDS SUMMARY | 2022-04-01 10:12 | XMS_ITS | Encounter Summary ---
:1945 Author Organization [facility] [place] [address] Care Team Providers Name Role Phone Angela Holliday APRN Primary Care Provider Encounter Details Date Type Department Care Team Description 01/25/2013 Clinical [place] [address] Social History Tobacco Use Types Packs/Day [...] Dolan MD [facility] Dr [place], [place] [address] (Wo rk) 05/28/2022 Laboratory Appointment Lab 05/28/2022 Office Visit Cardiology Zulma Dolan MD [facility] [place] [address] Liz Poole PA [facility] [place] [address] 06/10/2022 Office Visit Dermatology Laura Scherer MD [facility] [address] TEJA GR[address]DERMAT [place], [place] [address] (Wo rk) documented as of this encounter Visit Diagnoses Not on filedocumented in this encounter Care Teams Leaf Binner Relationship Specialty Start Date End Date Angela Holliday APRN PCP - General 01/25/13 04/15/[address] [place] [address] documented as of this encounter
--- OUTSIDE RECORDS SUMMARY | 2022-04-01 10:12 | XMS_ITS | Encounter Summary ---
:1945 Author Organization [facility] [place] [address] Care Team Providers Name Role Phone Angela Holliday APRN Primary Care Provider Encounter Details Date Type Department Care Team Description 03/15/2013 Telephone General Surgery at [facility] Maddison Key, [place] [address] Social History Tobacco Use Types Packs/Day [...] Zulma Dolan MD [facility] [place], [place] [address] (Wo rk) 05/28/2022 Laboratory Appointment Lab 05/28/2022 Office Visit Cardiology Zulma Dolan MD [facility] [place] [address] Liz Poole PA [facility] [place] [address] 06/10/2022 Office Visit Dermatology Laura Scherer MD [facility] DR TEJA GR-DERMAT [place], [place] [address] (Wo rk) documented as of this encounter Visit Diagnoses Not on filedocumented in this encounter Care Teams Equipment Tester Relationship Specialty Start Date End Date Angela Holliday APRN PCP - General 01/25/13 04/15/[address] [place] [address] documented as of this encounter
--- OUTSIDE RECORDS SUMMARY | 2022-04-01 10:12 | XMS_ITS | Encounter Summary ---
:1945 Author Organization [facility] [address] Care Team Providers Name Role Phone Angela Holliday APRN Primary Care Provider Encounter Details Date Type Department Care Team Description 03/30/2013 Telephone General [facility] Cliff Nevarez, [place] [address] Social History Tobacco Use Types Packs/Day [...] Dolan MD [facility] er [place], [place] [address] (Wo rk) 05/28/2022 Laboratory Appointment Lab 05/28/2022 Office Visit Cardiology Zulma Dolan MD [facility] [place] [address] Liz Poole PA [facility] [place] [address] 06/10/2022 Office Visit Dermatology Laura Scherer MD [facility] [address] TE[address] GR-DERMAT [place], [place] [address] (Wo rk) documented as of this encounter Visit Diagnoses Not on filedocumented in this encounter Care Teams Shroud Line Tier Relationship Specialty Start Date End Date Angela Holliday APRN PCP - General 01/25/13 04/15/[address] [place] [address] documented as of this encounter
--- OUTSIDE RECORDS SUMMARY | 2022-04-01 10:12 | XMS_ITS | Encounter Summary ---
:1945 Author Organization [facility] [place] [address] Care Team Providers Name Role Phone Angela Sotelo APRN Primary Care Provider Encounter Details Date Type Department Care Team Description 01/16/2014 Surgery Gastroenterology at [facility] Nohemi Jaimes, COLONOSCOPY, [facility] Jorge mcnamara MD [place], [place] [address] [facility] LESION BY SNARE ([facility] [phone] DR Cintron) GASTROENTEROLOGY DEPT. [place], [place] [address] Social History Tobacco Use Types [...] you need to be checked. [facility] [phone] 8a-5p Same Day Endo [phone] 7a-8p Otherwise contact [phone] and ask to speak to the attendant sales electronic gaming device supervisor Follow up care is a shelton [...] MD - 01/16/2014 9:49 AM EDT [facility] Operative Note Patient Name: Gregory Fatima : [id number] MR#: [id number] Case Date: 01/16/2014 Surgeon: Surgeon(s) and Role: * Nohemi Jaimes MD - Primary Preoperative diagnosis: 5 yr surv. Full procedure note is documented under the Procedure section of eDH. documented in this encounter Plan of Treatment Upcoming Encounters Date Type Specialty Care Team Description 05/28/2022 Appointment Cardiology Zulma Dolan MD [facility] [address] [address] (Wo rk) 05/28/2022 Laboratory Appointment Lab 05/28/2022 Office Visit Cardiology Zulma Dolan MD [facility] [place] [address] Liz Poole PA [facility] [place] [address] 06/10/2022 Office Visit Dermatology Laura Scherer MD [facility] [address] GR-[place] [address] (Wo rk) documented as of this encounter [...] Surgical Pathology Report (01/16/2014 9:53 AM EDT) [facility] Method Time Signature Surgical CERNER Pathology ? [facility] Report ? Provider: ?? SHREE, NOHEMI Gonzalez ?Pt. Name: ?? MALICKA RT, GREGORY E ? Acc #: ?[id number] ?Pt. MRN: ?[id number] ? Col Date: ?? 4 ? /Sex: [...] Organization Address City/State/ZIP Code Phon e Number [place] [id number] LAB[address] RAKESH WALKER Specimen to [...] MD PATHOLOGY/CYTOLOGY ORDERABLE S Performing Organization Address City/[facility]/[place] [address] CERNER MILLENNIUM Specimen to [...] MD PATHOLOGY/CYTOLOGY ORDERABLE S Performing Organization Address [facility] [place] [address] CERNER MILLENNIUM COLONOSCOPY (01/16/2014 7:25 AM EDT) [facility] gist Method Time Signature COLONOSCOPY [facility] PROVATION Endoscopy Patient Name: Gregory Fatima ? Procedure Date: 01/16/2014 7:25 AM ? N: [id number] ? Date of : 1945 ? Age: 68 ? Order #: [id number] ? Procedure: ? Colonoscopy Indications: ? High [...] Laterality 01/16/2014 7:25 AM EDT Angela Sotelo HYDRAULIC PRESS TENDER GENERAL SURGICAL ORDERABLES Performing Organization Address City/State/ZIP [...] documented in this encounter Care Teams Hand Spring Former Relationship Specialty Start Date End Date Angela Sotelo APRN PCP - General 01/25/13 04/15/[address] [place] [address] documented as of this encounter
--- OUTSIDE RECORDS SUMMARY | 2022-04-01 10:12 | XMS_ITS | Encounter Summary ---
:1945 Author Organization [facility] [place] [address] Care Team Providers Name Role Phone Lovely Vicente MD Primary Care Provider Reason for Visit Reason Onset Date Comments Referral 10/30/2015 Urgent referral for mac on SIMÓN CHAVIS Encounter Details Date Type Department Care Team Description 10/30/2015 Telephone Ophthalmology at [facility] C Jayson Ruiz Referral (Urgent [facility] MD Grabiel referral for mac on [facility] DR SIMÓN [place]IS) [place] [address] OPHTHALMOLOGY DEPT. [phone] [place], [place] [address] (Wo rk) Social History Tobacco [...] Dolan MD [facility] [address] [place], [place] [address] (Wo rk) 05/28/2022 Laboratory Appointment Lab 05/28/2022 Office Visit Cardiology Zulma Dolan [place] [address] Liz Poole PA [facility] [place] [address] 06/10/2022 Office Visit Dermatology Laura Scherer MD [facility] [address] TE[address]MAT [place], [place] [address] (Wo rk) documented as of this encounter Visit Diagnoses Not on filedocumented in this encounter Care Teams Players Assistant Relationship Specialty Start Date End Date Lovely Vicente MD PCP - General 04/16/[address] [place], [place] [address] documented as of this encounter
--- OUTSIDE RECORDS SUMMARY | 2022-04-01 10:12 | XMS_ITS | Encounter Summary ---
:1945 Author Organization [facility] [place] [address] Care Team Providers Name Role Phone Lovely Vicente MD Primary Care Provider Reason for Visit Reason Comments Skin Check Encounter Details Date Type Department Care Team Description 06/05/2016 Office Visit Dermatology at [facility] istory of melanoma; Abdelrahman HOOPER MD Seborrheic keratosis; [address] [facility] [place] (actinic keratosis); [place] [address] Multiple nevi; [phone] [facility] [address]-DERMATOLGY [place], [place] [address] Social History Tobacco Use Types [...] Cardiology Zulma Dolan MD [facility] [place], [place] [address] (Wo rk) 05/28/2022 Laboratory Appointment Lab 05/28/2022 Office Visit Cardiology Zulma Dolan MD [facility] [place] [address] Liz Poole PA [facility] [place] [address] 06/10/2022 Office Visit Dermatology Laura Scherer MD [facility] DR TE[address] [place], [place] 0[address] (Wo rk) documented as of this encounter Visit Diagnoses Diagnosis History of melanoma Personal history of malignant melanoma o f skin Seborrheic keratosis Other seborrheic keratosis [place] (actinic keratosis) Actinic keratosis Multiple nevi Benign neoplasm of skin, site unspecifie d Scar Scar condition and fibrosis of skin documented in this encounter Care Teams Solar Electric/Photovoltaic Installer Relationship Specialty Start Date End Date Lovely Vicente MD PCP - General 04/16/[address] [place] [address] documented as of this encounter
--- OUTSIDE RECORDS SUMMARY | 2022-04-01 10:12 | XMS_ITS | Encounter Summary ---
:1945 Author Organization [facility] [place] [address] Care Team Providers Name Role Phone Lovely Vicente MD Primary Care Provider Reason for Visit Reason Comments Skin Check Encounter Details Date Type Department Care Team Description 04/16/2015 Follow-Up Dermatology at [facility] x of melanoma of skin; Abdelrahman HOOPER MD Multiple benign nevi [address] [place] [address] [facility]-DER[facility]GY [place], [place] [address] (Wo rk) Social History Tobacco [...] Diagnostic, Drum (ACCU-CHEK COMPACT TEST) Strip by [facility].(Non- Drug; Combo Route) route 2 times daily. [...] Garcia MD Section of Dermatology [facility] documented in this encounter Plan of Treatment Upcoming Encounters Date Type Specialty Care Team Description 05/28/2022 Appointment Cardiology Zulma Dolan MD [facility] [place], [place] [address] (Wo rk) 05/28/2022 Laboratory Appointment Lab 05/28/2022 Office Visit Cardiology Zulma Dolan MD [facility] [place] [address] Lzi Poole PA [facility] [place] [address] 06/10/2022 Office Visit Dermatology Laura Scherer MD [facility] DR TE[address]MAT [place], [place] [address] (Wo rk) documented as of this encounter Visit Diagnoses Diagnosis Hx of melanoma of skin Personal history of malignant melanoma o f skin Multiple benign nevi Benign neoplasm of skin, site unspecifie d documented in this encounter Care Teams Fixed Route Bus Operator Relationship Specialty Start Date End Date Lovely Vicente MD PCP - General 04/16/[address] [place] [address] [address] [place] [address] documented as of this encounter
--- OUTSIDE RECORDS SUMMARY | 2022-04-01 10:12 | XMS_ITS | Encounter Summary ---
:1945 Author Organization [facility] [place] [address] Care Team Providers Name Role Phone MiyaAngela STACIE Primary Care Provider Encounter Details Date Type Department Care Team Description 04/26/2014 Office Visit Endocrinology at [facility] Albertina Palmer, Papillary thyroid [facility] [place] [address] CENTER [phone] ENDOCRINOLOGY DEPT [place] [address] Social History Tobacco Use Types Packs/Day Years [...] on [place]. Rosalind Palmer Endocrine Staff Physician [facility] Rosalind Palmer MD - 04/26/2014 8:39 AM [...] one yr Rosalind Palmer Endocrine Staff Physician [facility] documented in this encounter Plan of Treatment Upcoming Encounters Date Type Specialty Care Team Description 05/28/2022 Appointment Cardiology Zulma Dolan MD [facility] [address] [place], [place] [address] (Wo rk) 05/28/2022 Laboratory Appointment Lab 05/28/2022 Office Visit Cardiology Zluma Dolan MD [facility] [place] [address] Liz Poole PA [facility] [place] [address] 06/10/2022 Office Visit Dermatology Laura Scherer MD [facility] DR TEJA [address]DERMAT [place], [place] [address] (Wo rk) documented as of [...] athologist Signature Thyroglobulin <0.4 <=54.9 CERNER ng/mL [facility] Comment: Interpret with caution. Tg levels [...] BR et al. J Clin Endo Metab 1999;84:1930-3353). Assay performed using the DPC Immulite T [...] Address City/State/ZIP Code Phon e Number [address] CERNER MILLENNIUM (ABNORMAL) TSH (04/26/2014 9:07 AM EDT) P athologist Signature TSH 4.46 (H) 0.27 - 4.20 CERNER mcIU/mL MILLENNIUM Specimen Anatomical Collection Method Collection Time Receive d Time (Source) Location / / Volume Laterality Blood specimen 04/26/2014 9:07 AM 014 9:12 (specimen) EDT AM EDT Resulting Agency Comment Spec In Lab Rosalind Palmer MD CHEMISTRY ORDERABLES Performing Organization Address City/[facility]/ZIP Code Phon e Number [address] CERNER MILLENNIUM documented in this encounter Visit Diagnoses Diagnosis Papillary thyroid carcinoma Malignant neoplasm of thyroid gland documented in this encounter Care Teams Teletypist Relationship Specialty Start Date End Date Angela Holliday APRN PCP - General 01/25/13 04/15/[address] [place] [address] documented as of this encounter
--- OUTSIDE RECORDS SUMMARY | 2022-04-01 10:12 | XMS_ITS | Encounter Summary ---
:1945 Author Organization [facility] [place] [address] Care Team Providers Name Role Phone Angela Holliday APRN Primary Care Provider Reason for Visit Reason Comments Other Encounter Details Date Type Department Care Team Description 08/01/2013 Telephone Dermatology at [facility] Rigoberto Garcia III, [address] [place] [address] [facility] [phone] TEJA MARIE-DERMAT [place], [place] [address] (Wo rk) Social History Tobacco [...] them. Component Value Surgical Pathology Final Report [facility] Provider: RIGOBERTO GARCIA III Pt. Name: DON HOANG Acc #: [id number] Pt. Col Date: 07/31/2013 /Sex: 1945,(68 years),Male Rec Date: 07/31/2013 LOC: [facility] SURGICAL PATHOLOGY ---Pathologic Diagnosis--- Skin, right [...] Cardiology Zulma Dolan MD [facility] [place], [place] [address] (Wo lissa) 05/28/2022 Laboratory Appointment Lab 05/28/2022 Office Visit Cardiology Zulma Dolan MD [facility] [place] [address] Liz Poole PA [facility] [place] [address] 06/10/2022 Office Visit Dermatology Laura Scherer MD [facility] DR TEJA MARIE-DERMAT [place], [place] [address] (Wo rk) documented as of this encounter Visit Diagnoses Not on filedocumented in this encounter Care Teams Stone Driller Helper Relationship Specialty Start Date End Date Angela Holliday APRN PCP - General 01/25/13 04/15/[address] [place] [address] documented as of this encounter
--- OUTSIDE RECORDS SUMMARY | 2022-04-01 10:12 | XMS_ITS | Encounter Summary ---
:1945 [place] [address] Care Team Providers Name Role Phone Holley Hollidayica STACIE Primary Care Provider Encounter Details Date Type Department Care Team Description 03/28/2013 - [facility]Primary 03/29/2013 Barbara Gomes MD Dx) [facility] DR Siddiqui GENERAL [place] [address] [phone] Social History Tobacco Use Types Packs/Day Years [...] please call the General Surgery nurse at [phone], since this may mean that you need morecalcium. Follow-up Appointment: Will be scheduled with Dr. Mcknight in 6 weeks Date and time as well as any required labs will be mailed to you Please call [phone] to confirm date and time of your [...] by calcium supplementation. Phone number for questions: [phone] before 5 PM weekdays [phone] after 5 PM and on weekends/holidays Please follow up with Urology as per their recommendations for Bob removal AttachmentsThe following attachments cannot be sent through Care Everywhere. THYROIDECTOMY: WHAT TO EXPECT AT HOME (VIET[place]ESE)URINARY CATHETER CARE: AFTER YOUR VISIT ([place]ET[place]ESE)documented in this encounter Medications at Time of [...] discomfort with Oxycodone 10 mg; meds effective. Obb draining slightly pink-tinged urine. JANUARY at right [...] is a 68 y.o. male presents to [facility] today for total thyroidectomy. See full Consult [...] Willams MD - 03/28/2013 3:43 PM EDT [facility] Oper[place] Note Patient Name: Gregory Fatima : [id number] MR#: [id number] Case Date: 03/28/2013 Surgeon: Surgeon(s) and Role: [...] patient was extubated and taken to the [facility] in stable condition. At the end ofthe [...] Operative Note Patient Name: Gregory Fatima : [id number] MR#: [id number] Case Date: 03/28/2013 Surgeon: Surgeon(s) and Role: [...] Dolan MD [facility] er [address] [place] [address] (Wo rk) 05/28/2022 Laboratory Appointment Lab 05/28/2022 Office Visit Cardiology Zumla Dolan MD [facility] [place] [address] Liz Poole PA [facility] [place] [address] 06/10/2022 Office Visit Dermatology Laura Scherer MD [facility] ER DR TEJA GR[address]DERMAT [place] [address] (Wo rk) documented as of this encounter [...] Organization Address City/State/[place] [address] CERNER MILLENNIUM (ABNORMAL) POCT [...] TEST ORDERABLE S Performing Organization Address City/[facility]/ZIP [place] [address] CERNER MILLENNIUM (ABNORMAL) POCT [...] TEST ORDERABLE S Performing Organization Address City/[facility]/ZIP Code Phon e Number [address] CERNER MILLENNIUM (ABNORMAL) POCT [...] TEST ORDERABLE S Performing Organization Address City/[facility]/ZIP Code Phon e Number [address] CERNER MILLENNIUM (ABNORMAL) POCT [...] TEST ORDERABLE S Performing Organization Address City/[facility]/ZIP Code Phon e Number [address] CERNER MILLENNIUM (ABNORMAL) POCT [...] TEST ORDERABLE S Performing Organization Address City/[facility]/ZIP Code Phon e Number [address] CERNER MILLENNIUM (ABNORMAL) POCT [...] TEST ORDERABLE S Performing Organization Address City/[facility]/ZIP Code Phon e Number [address] CERNER MILLENNIUM (ABNORMAL) POCT [...] TEST ORDERABLE S Performing Organization Address City/[facility]/ZIP Code Phon e Number [address] [facility] Specimen to Pathology (surgical or derm) (03/28/2013 12:14 PM EDT) Specimen Anatomical Collection Method Collection Time Receive d Time (Source) Location / / Volume Laterality AP Specimen 03/28/2013 12:14 03/28/2013 PM EDT 12:14 PM EDT Narrative CERNER MILLENNIUM - 03/28/2013 12:14 PM EDT Specimen requisition ordered. ??Separate Pathology report to follow Mesha Mcknight MD PATHOLOGY/CYTOLOGY ORDERABLE S Performing Organization Address City/[facility]/ZIP Code Phon e Number [address] [facility] Pathology Addendum Report (03/28/2013 12:03 PM EDT) Component Value Ref Test Analysis Performed At [facility] gist Range Method Time Signature Addendum CERNER Report ? [facility] ? Provider: ?? MESHA MCKNIGHT Pt. Name: ?? GREGORY FATIMA ? Acc #: ?[id number] ?Pt. MRN: ?[id number] ? Col Date: ?? 03/28/2013 ?/Sex: ?1945,(68 [...] Address City/State/ZIP [place] [address] [facility] Surgical Pathology Report (03/28/2013 12:03 PM EDT) Component Value Ref Test Analysis Performed At [facility] gist Range Method Time Signature Surgical [facility] Pathology ? [facility] Report ? Provider: ?? MESHA MCKNIGHT Pt. Name: ?? GREGORY FATIMA ? Acc #: ?[id number] ?Pt. MRN: ?[id number] ? Col Date: ?? 03/28/2013 ?/Sex: ?1945,(68 [...] Name: ?? GREGORY FATIMA ? Acc #: ?[id number] ?Pt. MRN: ?[id number] ? Col Date: ?? 03/28/2013 ?/Sex: ?1945,(68 years),Male ? Rec Date: ?? 03/28/2013 ?LOC: ?[facility] ? SURGICAL PATHOLOGY ? SECTIONS/PROCESSING: Technical Publications Manager sections are subm itted. (R6) ? [...] Address City/State/ZIP [place] [address] CERNER MILLENNIUM Frozen Section Report (03/28/2013 12:03 PM EDT) Component Value Ref Test Analysis Performed At [facility] gist Range Method Time Signature Frozen CERNER Section ? [facility] Report ? Provider: ?? MESHA MCKNIGHT Pt. Name: ?? GREGORY FATIMA ? Acc #: ?[id number] ?Pt. MRN: ?[id number] ? Col Date: ?? 03/28/2013 ?/Sex: ?1945,(68 [...] PATHOLOGY/CYTOLOGY ORDERABLE S Performing Organization Address City/[facility]/ZIP [place] [address] CERNER MILLENNIUM POCT Glucose [...] TEST ORDERABLE S Performing Organization Address City/[facility]/ZIP Code Phon e Number [address] CERNER MILLENNIUM Specimen to [...] PATHOLOGY/CYTOLOGY ORDERABLE S Performing Organization Address City/[facility]/ZIP [place] [address] CERNER MILLENNIUM Antibody screen (03/28/2013 9:37 AM EDT) Analysis Performed At Patho logist Time Signature Ab Screen Negative CERNER Interp MILLENNIUM Expires at [id number] CERNER 951 on: MILLENNIUM Specimen Anatomical Collection Method Collection Time Receive d Time (Source) Location / / Volume Laterality Blood specimen 03/28/2013 9:37 AM 013 9:37 (specimen) EDT AM EDT Resulting Agency Comment Spec In Lab Mesha Mcknight MD BLOOD BANK ORDERABLES Performing Organization Address City/[facility]/ZIP [place] [address] [facility] GRISELDAENNIUM ABO/Rh Typing (03/28/2013 9:37 AM EDT) athologist Signature ABORh Type O Pos [facility] Specimen Anatomical Collection Method Collection Time Receive d Time (Source) Location / / Volume Laterality Blood specimen 03/28/2013 9:37 AM 013 9:37 (specimen) EDT AM EDT Resulting Agency Comment Spec In Lab Mesha Mcknight MD BLOOD BANK ORDERABLES Performing Organization Address City/[facility]/ZIP Code Phon e Number [address] [facility] Differential, Automated (03/28/2013 9:34 AM EDT) [...] City/State/ZIP Code Phon e Number [place] [id number] HOSPITAL [address] CERNER MILLENNIUM (ABNORMAL) Basic [...] intervals supplied above were not validated at [facility]. Results from pediatri c [...] Address City/State/ZIP [place] [address] CERNER MILLENNIUM (ABNORMAL) CBC [...] MPV 9.3 9.0 - 12.0 CERNER fL [facility]INGTONEN[facility]UM Specimen Anatomical Collection Method Collection Time Receive d Time (Source) Location / / Volume Laterality Blood specimen 03/28/2013 9:34 AM 013 9:38 (specimen) EDT AM EDT Resulting Agency Comment Spec In Lab Mesha Mcknight MD HEMATOLOGY ORDERABLES Performing Organization Address City/[facility]/ZIP Code Phon e Number [address] [facility] POCT Glucose (03/28/2013 9:17 AM EDT) athologist Signature POC Glucose 108 60 - 199 CERNER mg/dL [facility] Comment: Supplemental ranges: <110 mg/dL before meals <200 mg/dL all other times of the day Specimen Anatomical Collection Method Collection Time Receive d Time (Source) Location / / Volume Laterality Blood specimen 03/28/2013 9:17 AM 013 9:17 (specimen) EDT AM EDT Mesha Mcknight MD POINT OF CARE TEST ORDERABLE S Performing Organization Address City/[facility]/ZIP Code Phon e Number [address] [facility] Specimen to Pathology (surgical or derm) (03/28/2013 8:55 AM EDT) Specimen Anatomical Collection Method Collection Time Receive d Time (Source) Location / / Volume Laterality AP Specimen 03/28/2013 8:55 AM 3 8:54 EDT AM EDT Narrative [facility] GRISELDAENNIUM - 03/28/2013 8:55 AM E DT Specimen requisition ordered. ??Separate Pathology report to follow Mesha Mcknight MD PATHOLOGY/CYTOLOGY ORDERABLE S Performing Organization Address City/[facility]/ZIP Code Phon e Number [address] [facility] documented in this encounter [...] RN) 0900 (Given - Provider: Radha Yao [facility], RN) 2.5 mg, Oral, [...] override documented in this encounter Care Teams Wood Bucker Relationship Specialty Start Date End Date Angela Holliday APRN PCP - General 01/25/13 04/15/15 [address] [place] [address] documented as of this encounter
--- OUTSIDE RECORDS SUMMARY | 2022-04-01 10:12 | XMS_ITS | Encounter Summary ---
:1945 Author Organization [facility] [place] [address] Care Team Providers Name Role Phone Lovely Vicente MD Primary Care Provider Reason for Visit Reason Onset Date Comments Medication Refill 06/19/2016 Encounter Details Date Type Department Care Team Description 06/19/2016 Refill Endocrinology at [facility] Luz Stallings MD [facility] [place] [address] ENDOCRINOLOGY DEPT [phone] [place], [place] [address] (Wo rk) Social History Tobacco [...] Zulma Dolan MD [facility] er [address] [place] [address] (Wo rk) 05/28/2022 Laboratory Appointment Lab 05/28/2022 Office Visit Cardiology Zulma Dolan MD [facility] [address] Liz Poole PA [facility] [place] [address] 06/10/2022 Office Visit Dermatology Laura Scherer MD [facility] DR [address] [place], [place] [address] (Wo rk) documented as of this encounter Visit Diagnoses Not on filedocumented in this encounter Care Teams Senior Science Consultant Relationship Specialty Start Date End Date Lovely Vicente MD PCP - General 04/16/[address] [place], [place] [address] documented as of this encounter
--- OUTSIDE RECORDS SUMMARY | 2022-04-01 10:12 | XMS_ITS | Encounter Summary ---
:1945 Author Organization [facility] [place] [address] Care Team Providers Name Role Phone MiyaLokeshAngela STACIE Primary Care Provider Encounter Details Date Type Department Care Team Description 04/04/2013 Orders Only General Surgery at Manny Mcknight thyroid [facility] [place] Eliseo carcinoma (Primary Dx) [facility] [place] [address] GENERAL SURGERY [phone] [place], [place] [address] Social History Tobacco Use Types [...] Dolan MD [facility] er [place], [place] [address] (Wo rk) 05/28/2022 Laboratory Appointment Lab 05/28/2022 Office Visit Cardiology Zulma Dolan MD [facility] [place] [address] Liz Poole PA [facility] [place] [address] 06/10/2022 Office Visit Dermatology Laura Scherer MD [facility] DR TE[address] GR[address]DER[address] [place], [place] [address] (Wo rk) documented as of this encounter Visit Diagnoses Diagnosis Papillary thyroid carcinoma - Primary Malignant neoplasm of thyroid gland documented in this encounter Care Teams Highway Painter Relationship Specialty Start Date End Date Angela Holliday APRN PCP - General 01/25/13 04/15/[address] [place] [address] documented as of this encounter
--- OUTSIDE RECORDS SUMMARY | 2022-04-01 10:12 | XMS_ITS | Encounter Summary ---
:1945 Author Organization [facility] [place] [address] Care Team Providers Name Role Phone Angela Holliday APRN Primary Care Provider Reason for Referral Surgical (Routine) - Closed Specialty Diagnoses / Procedures Referred By Contact Refer red To Contact General Surgery Diagnoses Elijah Villagomez MD Colacchio, Thomas A, MD [address] [place] [address] [place] [address] [place] [address] Phone: Fax: Referral ID Status Reason Start Date Expiration Date Visits V isits Requested Authorized [id number] Closed Specialty 01/25/2013 07/24/2013 1 1 Service Requested Reason for Visit Reason Comments Thyroid Problem Encounter Details Date Type Department Care Team Description 01/25/2013 Office Visit Endocrinology at [facility] Elijah Fuentes Goiter (Primary Dx) [facility] [address] [place] [phone] [place] [address] [phone] Social History Tobacco Use Types Packs/Day Years [...] History 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 All [...] the thyroid gland were obtained using a SonLobera Cigarsaxx and an HFL38/13-6 broadband linear array transducer. [...] Cardiology Zulma Dolan MD [facility] [place], [place] [address] (Wo rk) 05/28/2022 Laboratory Appointment Lab 05/28/2022 Office Visit Cardiology Zulma Dolan MD [facility] [place] [address] Liz Poole PA [facility] [place] [address] 06/10/2022 Office Visit Dermatology Laura Scherer MD [facility] [address] TEJA GR-DERMAT [place], [place] [address] (Wo rk) Scheduled Referrals Name [...] Organization Address City/State/Z[place] [address] CERNER MILLENNIUM documented in this encounter Visit Diagnoses Diagnosis Goiter - Primary Goiter, unspecified documented in this encounter Care Teams Supervisor Calibration Relationship Specialty Start Date End Date Angela Holliday APRN PCP - General 01/25/13 04/15/[address] [place] [address] documented as of this encounter
--- OUTSIDE RECORDS SUMMARY | 2022-04-01 10:12 | XMS_ITS | Encounter Summary ---
:1945 Author Organization [facility] [place] [address] Care Team Providers Name Role Phone Miay Angela STACIE Primary Care Provider Encounter Details Date Type Department Care Team Description 04/24/2013 Telephone Urology at [facility] Zhen Bowman [place] [facility] [place] [address] UROLOGY DEPT [phone] [place], [place] [address] (Wo rk) Social History Tobacco [...] MD [facility] [place], [place] [address] (Wo rk) 05/28/2022 Laboratory Appointment Lab 05/28/2022 Office Visit Cardiology Zulma Dolan [place] [address] Liz Poole PA [facility] [place] [address] 06/10/2022 Office Visit Dermatology Laura Scherer MD [facility] DR TEJA GR[address]DERMAT [place], [place] [address] (Wo rk) documented as of this encounter Visit Diagnoses Not on filedocumented in this encounter Care Teams Profile Saw Operator Relationship Specialty Start Date End Date Angela Holliday APRN PCP - General 01/25/13 04/15/[address] [place] [address] documented as of this encounter
--- OUTSIDE RECORDS SUMMARY | 2022-04-01 10:12 | XMS_ITS | Encounter Summary ---
:1945 Author Organization [facility] [place] [address] Care Team Providers Name Role Phone MiyaAngela STACIE Primary Care Provider Encounter Details Date Type Department Care Team Description 11/27/2013 Orders Only Urology at [facility] Blade Smith, Urinary retention [facility] (Primary Dx) [place] [address] UROLOGY DEPT [place], [place] [address] Social History Tobacco Use Types [...] MD [facility] er Dr [place], [place] 0[address] (Wo rk) 05/28/2022 Laboratory Appointment Lab 05/28/2022 Office Visit Cardiology Zulma Dolan MD [facility] [place] [address] Liz Poole PA [facility] [place] [address] 06/10/2022 Office Visit Dermatology Laura Scherer MD [facility] ER DR TEJA GR[address]DERMAT [place], [place] [address] (Wo rk) documented as [...] EDT Resulting Agency Comment Spec In Lab Blaed Smith MD CHEMISTRY ORDERABLES Performing Organization Address City/State/Z[place] [address] CERNER MILLENNIUM documented in this encounter Visit Diagnoses Diagnosis Urinary retention - Primary Retention of urine, unspecified documented in this encounter Care Teams Hvac Journeyman Relationship Specialty Start Date End Date Angela Holliday APRN PCP - General 01/25/13 04/15/[address] [place] [address] documented as of this encounter
--- OUTSIDE RECORDS SUMMARY | 2022-04-01 10:12 | XMS_ITS | Encounter Summary ---
:1945 Author Organization [facility] [place] [address] Care Team Providers Name Role Phone MiyaLokeshAngela STACIE Primary Care Provider Reason for Visit Reason Onset Date Comments Post-op Problem 04/05/2013 voiding trial Encounter Details Date Type Department Care Team Description 04/05/2013 Telephone Urology at [facility] Blade Smith, Post-op Problem [facility] (voiding trial) [place] [address] UROLOGY DEPT [place] [address] (Wo rk) Social History Tobacco Use Types [...] Zulma Dolan MD [facility] [address] [place], [place] [address] (Wo rk) 05/28/2022 Laboratory Appointment Lab 05/28/2022 Office Visit Cardiology Zulma Dolan MD [facility] [place] [address] Liz Poole PA [facility] [place] [address] 06/10/2022 Office Visit Dermatology Laura Scherer MD [facility] DR TEJA GR[address]DERMAT [place], [place] [address] (Wo rk) documented as of this encounter Visit Diagnoses Not on filedocumented in this encounter Care Teams Washing Machine Installer Relationship Specialty Start Date End Date Angela Holliday APRN PCP - General 01/25/13 04/15/[address] [place] [address] documented as of this encounter
--- OUTSIDE RECORDS SUMMARY | 2022-04-01 10:12 | XMS_ITS | Encounter Summary ---
:1945 Author Organization [facility] [place] [address] Care Team Providers Name Role Phone Angela Holliday APRN Primary Care Provider Reason for Visit Reason Comments Benign Prostatic Hypertrophy Encounter Details Date Type Department Care Team Description 11/28/2013 Follow-Up Urology at [facility] Blade Smith, Urinary retention (Primary D x); [facility] BPH (benign prostatic hyperplasia) [place] [address] UROLOGY DEPT [place], [place] [address] (Wo rk) Social History Tobacco [...] Dolan MD [facility] Dr [place], [place] [address] (Wo rk) 05/28/2022 Laboratory Appointment Lab 05/28/2022 Office Visit Cardiology Zulma Dolan [place] [address] Liz Poole PA [facility] [place] [address] 06/10/2022 Office Visit Dermatology Laura Scherer MD [facility] DR TEJA [address]DER[address] [place], [place] [address] (Wo rk) documented as of [...] Organization Address City/State/[place] [address] CERNER MILLENNIUM documented in this encounter Visit Diagnoses Diagnosis Urinary retention - Primary Retention of urine, unspecified BPH (benign prostatic hyperplasia) Unspecified hyperplasia of prostate with out urinary obstruction and other lower urinary tract symptoms (LUTS) documented in this encounter Care Teams Land Mobile Radio Technician Relationship Specialty Start Date End Date Angela Holliday APRN PCP - General 01/25/13 04/15/[address] [place] [address] documented as of this encounter
--- OUTSIDE RECORDS SUMMARY | 2022-04-01 10:12 | XMS_ITS | Encounter Summary ---
:1945 Author Organization [facility] [place] [address] Care Team Providers Name Role Phone Angela Holliday APRN Primary Care Provider Reason for Visit Reason Onset Date Comments Other 03/30/2013 blood in catheter ba g Encounter Details Date Type Department Care Team Description 03/30/2013 Telephone General Surgery at [facility] Janneth Sharma, Other (blood in [facility] RN catheter bag) [place] [address] Social History Tobacco Use Types Packs/Day [...] Cardiology Zulma Dolan MD [facility] [place], [place] 0[address] (Wo rk) 05/28/2022 Laboratory Appointment Lab 05/28/2022 Office Visit Cardiology Zulma Dolan MD [facility] [place] [address] Liz Poole PA [facility] [place] [address] 06/10/2022 Office Visit Dermatology Laura Scherer MD [facility] [address] TEJA GR[address]DER[address] [place], [place] [address] (Wo rk) documented as of this encounter Visit Diagnoses Not on filedocumented in this encounter Care Teams Fashion Consultant Relationship Specialty Start Date End Date Angela Holliday APRN PCP - General 01/25/13 04/15/[address] [place] [address] documented as of this encounter
--- OUTSIDE RECORDS SUMMARY | 2022-04-01 10:12 | XMS_ITS | Encounter Summary ---
:1945 [place] [address] Care Team Providers Name Role Phone MiyaLokeshAngela STACIE Primary Care Provider Encounter Details Date Type Department Care Team Description 03/28/2013 Anesthesia Event Main Operating Room Meredith Calvert MD [facility] [place] [address] [facility] Nolvia Riojas PA [facility] [place] [address] [place] [address] Anesthesia Record Procedure Summary Procedure Name [...] Cardiology Zulma Dolan MD [facility] [place], [place] [address] (Wo rk) 05/28/2022 Laboratory Appointment Lab 05/28/2022 Office Visit Cardiology Zulma Dolan MD [facility] [place] [address] Liz Poole PA [facility] [place] [address] 06/10/2022 Office Visit Dermatology Laura Scherer MD [facility] DR TEJA GR[address]DERMAT [place], [place] [address] (Wo rk) documented as of [...] Routine documented in this encounter Care Teams Remediation Technician Relationship Specialty Start Date End Date Angela Holliday APRN PCP - General 01/25/13 04/15/[address] [place] [address] documented as of this encounter
--- OUTSIDE RECORDS SUMMARY | 2022-04-01 10:12 | XMS_ITS | Encounter Summary ---
:1945 Author Organization [facility] Address [facility] [place] [address] Care Team Providers Name Role Phone Lovely Vicente MD Primary Care Provider Reason for Visit Reason Comments Skin Check Encounter Details Date Type Department Care Team Description 11/05/2015 Office Visit Dermatology at [facility] benign nevi; Abdelrahman HOOPER MD Lentigines; [address] [facility] History of melanoma; [place] [address] Skin exam for malignant neoplasm [phone] [facility] [place], [place] [address] Social History Tobacco Use Types [...] Diagnostic, Drum (ACCU-CHEK COMPACT TEST) Strip by [facility].(Non- Drug; Combo Route) route 2 times daily. [...] the presence of Dr. Garcia.: GINNY CHRISTIANSEN WINDING RACK OPERATOR and Judit Cruz, Clinical Scribe I performed the above scribed service and agree with the accuracy of the documentation in this encounter. Rigoberto Garcia MD Section of Dermatology [facility] documented in this encounter Plan of Treatment Upcoming Encounters Date Type Specialty Care Team Description 05/28/2022 Appointment Cardiology Zulma Dolan MD [facility] [address] [place], [place] [address] (Wo rk) 05/28/2022 Laboratory Appointment Lab 05/28/2022 Office Visit Cardiology Zulma Dolan MD [facility] [place] [address] Liz Poole PA [facility] [place] [address] 06/10/2022 Office Visit Dermatology Laura Scherer MD [facility] DR TEJA GR-DERMAT [place], [place] [address] (Wo rk) documented as of this encounter Visit Diagnoses Diagnosis Multiple benign nevi Benign neoplasm of skin, site unspecifie d Lentigines Other dyschromia History of melanoma Personal history of malignant melanoma o f skin Skin exam for malignant neoplasm Screening for malignant neoplasm of the skin documented in this encounter Care Teams Assistant Professor Of Biochemistry Relationship Specialty Start Date End Date Lovely Vicente MD PCP - General 04/16/15 [facility] [address] [place] [address] (work) documented as of this encounter
--- OUTSIDE RECORDS SUMMARY | 2022-04-01 10:12 | XMS_ITS | Encounter Summary ---
:1945 Author Organization [facility] [place] [address] Care Team Providers Name Role Phone Angela Holliday APRN Primary Care Provider Encounter Details Date Type Department Care Team Description 04/30/2014 Orders Only Endocrinology at [facility] Albertina Palmer, Thyroid cancer [facility] Jorge Boyer MD (Primary [place]x) [place] [address] [facility] [phone] CENTER ENDOCRINOLOGY DEPT [place], [place] [address] Social History Tobacco Use Types [...] Cardiology Zulma Dolan MD [facility] er Dr [place], [place] [address] (Wo rk) 05/28/2022 Laboratory Appointment Lab 05/28/2022 Office Visit Cardiology Zulma Dolan MD [facility] [place] [address] Liz Poole PA [facility] [place] [address] 06/10/2022 Office Visit Dermatology Laura Scherer MD [facility] ER DR TEJA GR-DERMAT [place], [place] [address] (Wo rk) documented as of this encounter Visit Diagnoses Diagnosis Thyroid cancer - Primary Malignant neoplasm of thyroid gland documented in this encounter Care Teams Cloth Bleaching Range Tender Relationship Specialty Start Date End Date Angela Holliday APRN PCP - General 01/25/13 04/15/[address] [place] [address] documented as of this encounter
--- OUTSIDE RECORDS SUMMARY | 2022-04-01 10:12 | XMS_ITS | Encounter Summary ---
:1945 Author Organization [facility] [place] [address] Care Team Providers Name Role Phone Angela Holliday APRN Primary Care Provider Encounter Details Date Type Department Care Team Description 04/05/2013 Office Visit [facility]rology at [facility] [place] [address] Social History Tobacco Use Types Packs/Day Years Used Date Former Smoker Alcohol Use Standard Drinks/Week Comments No 0 (1 standard drink = 0.6 oz pure alcoho l) Sex Assigned at Date Recorded Not on file documented as of this encounter Plan of Treatment Upcoming Encounters Date Type Specialty Care Team Description 05/28/2022 Appointment Cardiology Zulma Dolan MD [facility] [address] [place], [place] [address] (Wo rk) 05/28/2022 Laboratory Appointment Lab 05/28/2022 Office Visit Cardiology Zulma Dolan MD [facility] [place] [address] Liz Poole PA [facility] [place] [address] 06/10/2022 Office Visit Dermatology Laura Scherer MD [facility] DR [address]-DERMAT [place], [place] [address] (Wo rk) documented as of this encounter Visit Diagnoses Not on filedocumented in this encounter Care Teams Stab Setter And Driller Relationship Specialty Start Date End Date Angela Holliday APRN PCP - General 01/25/13 04/15/[address] [place] [address] documented as of this encounter
--- OUTSIDE RECORDS SUMMARY | 2022-04-01 10:13 | XMS_ITS | Encounter Summary ---
:1945 Author Organization [facility] [place] [address] Care Team Providers Name Role Phone Adi Costello MD Primary Care Provider Reason for Visit Reason Comments Annual Exam ckeck his groin and melanoma follow-up Encounter Details Date Type Department Care Team Description 11/21/2010 Follow-Up Dermatology Arik Tipton Melanoma (Primary Dx) [facility] MD Jorge [place] [phone] DERMATOLOGY DEPT . 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 His only complaints are leg cramps, [...] changes: Arik Tipton MD Section of Dermatology [facility] documented in this encounter Plan of Treatment Upcoming Encounters Date Type Specialty Care Team Description 05/28/2022 Appointment Cardiology Zulma Dolan MD [facility] [address] [place], [place] [address] (Wo rk) 05/28/2022 Laboratory Appointment Lab 05/28/2022 Office Visit Cardiology Zulma Dolan MD [facility] [place] [address] Liz Poole PA [facility] [place] [address] 06/10/2022 Office Visit Dermatology Laura Scherer MD [facility] DR TEJA GR[address]DERMAT [place], [place] [address] (Wo rk) documented as of this encounter Visit Diagnoses Diagnosis Melanoma - Primary Melanoma of skin, site unspecified documented in this encounter Care Teams Youth Ministry Director Relationship Specialty Start Date End Date Adi Costello MD PCP - General 06/17/10 09/21/11 [address] [place] [address] documented as of this encounter
--- OUTSIDE RECORDS SUMMARY | 2022-04-01 10:13 | XMS_ITS | Encounter Summary ---
:1945 Author Organization [facility] Address [facility] [place] [address] Care Team Providers Name Role Phone Unknown Primary Care Provider Unavailable Reason for Visit Reason Comments Skin Check Encounter Details Date Type Department Care Team Description 10/04/2012 Follow-Up Dermatology at [facility] soriasis (Primary Dx); Abdelrahman HOOPER MD Neoplasm of unspecified nature of bone, soft tissue, and skin; [address] [facility] Skin lesion of chest wall; [place] [address] Seborrheic psoriasis- scalp and ingtergl uteal area [phone] [facility] [place], [place] [address] (Wo rk) Social History [...] changes: Rigoberto Albarran MD Section of Dermatology [facility] documented in this encounter Plan of Treatment Upcoming Encounters Date Type Specialty Care Team Description 05/28/2022 Appointment Cardiology Zulma Dolan MD [facility] Dr [place], [place] [address] (Wo rk) 05/28/2022 Laboratory Appointment Lab 05/28/2022 Office Visit Cardiology Zulma Dolan MD [facility] [place] [address] Liz Poole PA [facility] [place] [address] 06/10/2022 Office Visit Dermatology Laura Scherer MD [facility] DR TEJA GR-DERMAT [place], [place] [address] (Wo rk) documented as of [...] Method Time Signature Surgical CERNER Pathology ? [facility] Report ? Provider: ?? RIGOBERTO ALBARRAN III Pt. Name: ?? DON HOANG ?A ? Acc #: ?[id number] ? Pt. ? Col Date: ?? 3 [...] MD PATHOLOGY/CYTOLOGY ORDERABLE S Performing Organization Address City/[facility]/ZIP Code Phon e Number [address] [facility] Specimen to Pathology (NON-OR) (10/04/2012 9:55 AM EDT) Specimen Anatomical Collection Method Collection Time Receive d Time (Source) Location / / Volume Laterality AP Specimen 10/04/2012 9:55 AM 201 3 9:56 EDT AM EDT Narrative [facility] - 10/04/2012 9:56 AM E DT Specimen requisition ordered. ??Separate Pathology report to follow Rigoberto Albarran III, MD PATHOLOGY/CYTOLOGY ORDERABLE S Performing Organization Address City/[facility]/ZIP Code Phon e Number [address] [facility] documented in this encounter Visit Diagnoses Diagnosis Psoriasis - Primary Other psoriasis Neoplasm of unspecified nature of bone, soft tissue, and skin Skin lesion of chest wall Unspecified disorder of skin and subcuta neous tissue Seborrheic psoriasis- scalp and ingtergl uteal area Other psoriasis documented in this encounter Care Teams Cloud Infrastructure Architect Relationship Specialty Start Date End Date Unknown PCP - General 10/04/12 01/24/13 None documented as of this encounter
--- OUTSIDE RECORDS SUMMARY | 2022-04-01 10:13 | XMS_ITS | Encounter Summary ---
:1945 Author Organization [facility] [place] [address] Care Team Providers Name Role Phone Brody Berrios MD Primary Care Provider Reason for Visit Reason Comments Annual Exam Encounter Details Date Type Department Care Team Description 09/22/2011 Follow-Up Dermatology Arik Tipton Psoriasis (Primary Dx); [facility] MD Jorge Personal history of other malignant neop lasm of skin Drive [place] [phone] DERMATOLOGY DEPT . 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 His only complaints tail bone and [...] Tipton MD Section of Dermatology [facility] documented in this encounter Plan of Treatment Upcoming Encounters Date Type Specialty Care Team Description 05/28/2022 Appointment Cardiology Zulma Dolan MD [facility] Dr [place], [place] [address] (Wo rk) 05/28/2022 Laboratory Appointment Lab 05/28/2022 Office Visit Cardiology Zulma Dolan MD [facility] [place] [address] Liz Poole PA [facility] [place] [address] 06/10/2022 Office Visit Dermatology Laura Scherer MD [facility] DR [address]-DERMAT [place], [place] [address] (Wo rk) documented as of this encounter Visit Diagnoses Diagnosis Psoriasis - Primary Other psoriasis Personal history of other malignant neop lasm of skin documented in this encounter Care Teams Instructor Hairspring Relationship Specialty Start Date End Date Brody Berrios MD PCP - General 09/22/11 10/03/[address] [place] [address] documented as of this encounter
--- OUTSIDE RECORDS SUMMARY | 2022-04-01 10:15 | XMS_ITS | Clinical Summary ---
:1945 Author Organization [facility] Address [address] [place] [address] Care Team Providers Name Role Phone Lovely [...] i n the results section. COVID-19 TEST [facility] Today 01/27/2022 14:30 LAB PCR EDT COVID-19 TESTING Routine 01/27/2022 14:30 Results for this EDT procedure are i n the results section. from Last 3 Months Results PSA TOTAL, DIAGNOSTIC (02/20/2022 9:04 EDT) Pathologist Sig nature PSA 2.7 <=6.5 ng/mL [facility] Specimen Blood - Venous blood (substance) Narrative [facility] - 02/20/2022 18:17 EDT NOTE: Serum PSA concentration should not be in terpreted as absolute evidence for the presence or absence of malignant disease. Assayed on Siemens ADVIA Centaur XPT usi ng chemiluminescent technology.??Values obtained by using different assay methods cannot be used interchangeably. Performing Organization Address City/State/ZIP Code Phon e Number [facility] [address] [place] [address] SERVICES COVID-19 TEST [facility] LAB PCR (01/27/2022 14:30 EDT) Specimen Swab Performing Organization Address City/[facility]/ZIP Code Phon e Number [facility] [address] [place] [address] SERVICES COVID-19 TESTING (01/27/2022 14:30 EDT) COVID-19 rt-PCR Negative Negative [facility] MEDICAL Result Comment: CENTER LABORATORY [...] performed using the meliton SARS-CoV-2 assay ([employer] System, Inc.) on the Meliton 6800 System Performing Lab Meliton 6800 [facility] Lab [facility] Specimen Swab Performing Organization Address City/[facility]/ZIP Code Phon e Number [facility] [address] [place] [address] SERVICES from Last 3 Months Care Teams Electronic Warfare Linguist Relationship Specialty Start Date End Date Lovely Vicente MD PCP - General 07/13/14
--- OUTSIDE RECORDS SUMMARY | 2022-04-01 10:15 | XMS_ITS | Encounter Summary ---
:1945 Author Organization [facility] Address [address] [place] [address] Care Team Providers Name Role Phone Unknown, Provider Primary Care Provider Encounter Details Date Type Department Care Team Description 07/11/2014 Hospital Encounter [facility] Heather Unknown, Provider, [facility] [address] [place] [address] [place] [address] (Work) [phone] Social History Tobacco Use Types Packs/Day Years Used Date Never Assessed Sex Assigned at Date Recorded Not on file documented as of this encounter Discharge Disposition Disposition Code Departure Means Destination Home or Self Assisted documented in this encounter Plan of Treatment Not on filedocumented as of this encounter Visit Diagnoses Not on filedocumented in this encounter Care Teams Final Dressing Cutter Relationship Specialty Start Date End Date Unknown, Provider, PCP - General 03/07/14 07/12/14 documented as of this encounter
--- OUTSIDE RECORDS SUMMARY | 2022-04-01 10:15 | XMS_ITS ---
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 Problem Critical ischemia I99.8 Active of lower extremity Problem Atherosclerosis I70.90 Active 3871 6007 Problem Type 2 diabetes E11.628 Active mellitus with other skin complications Problem 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 40 ; Acquired deformi ty of right foot M21.961 ; L luis term current use of i nsulin Z79.4 ; History of art erial bypass of lower extremi ty Z95.828 ; Atherosclerosis I70.90 and History of Lisfr anc amputation of fo ot Z89.439 [facility] Feb, Type 2 diabet es mellitus [address] [place] with diabe tic neuropathy, [address] unspecified E11. 40 ; Acquired deformi ty of right foot M21.961 ; L luis term current use of i nsulin Z79.4 ; History of art erial bypass of lower extremi ty Z95.828 ; Atherosclerosis I70.90 and History of Lisfr anc amputation of fo ot Z89.439 [facility] November, [place] [address] [facility] [address] [facility] November, Type 2 [place] [address] with diabeti c neuropathy, unspecified E11. 40 ; Acquired deformi ty of right foot M21.961 ; L luis term current use of i nsulin Z79.4 ; History of art erial bypass of lower extremi ty Z95.828 ; Atherosclerosis I70.90 and History of Lisfr anc amputation of fo ot Z89.439 [facility] 10 Aug, 2019 Type 2 [place] [address] with other skin complications E1 1.628 ; Tinea pedis of l eft foot B35.3 ; Type 2 d iabetes mellitus with di abetic neuropathy, unsp ecified E11.40 ; Acquire d deformity of right foot M2 1.961 ; detention current use of insulin Z79.4 ; History of arterial bypass of lower extremity Z95.828 and Athe rosclerosis I70.90 [facility] Jun, [place] [address] [facility] Jun, [place] [address] [address] Jun, Type 2 diabet es mellitus [place], [place] with other skin [address] complications E1 1.628 ; Acquired deformi ty of right foot M21.961 ; T ype 2 diabetes mellitu s with diabetic neuropa thy, unspecified E11. 40 ; termite inspector current use of insulin Z79.4 and Histor y of arterial bypass of lower extremity Z95.82 8 [facility] [address] [facility] Feb, Type 2 [place] [address] with other s kin complications E1 1.628 ; Acquired deformi ty of right foot M21.961 ; T ype 2 diabetes mellitu s with diabetic neuropa thy, unspecified E11. 40 ; detention current use of insulin Z79.4 and Histor y of arterial bypass of lower extremity Z95.82 8 [facility] November, Tinea pedis o f left foot [place], [place] B35.3 ; Ty pe 2 diabetes [address] mellitus with ot her skin complications E1 1.628 ; Acquired deformi ty of right foot M21.961 ; T ype 2 diabetes mellitu s with diabetic neuropa thy, unspecified E11. 40 ; termite inspector current use of insulin Z79.4 and Histor y of arterial bypass of lower extremity Z95.82 8 [facility] 8 [facility] November, [place] [address] [address] Aug, Type 2 diabet es mellitus [place], [place] with diabe tic neuropathy, [address] unspecified E11. 40 ; Acquired deformi ty of right foot M21.961 ; P eripheral arterial disease I73.9 ; History of arter ial bypass of lower extremi ty Z95.828 ; detention curren t use of insulin Z79.4 an d History of Lisfranc amputat ion of foot Z89.439 UNKNOWN Jul, [facility] 11 Jun, 2018 Type 2 [place] [address] with diabeti c neuropathy, unspecified E11. [address] [facility] Apr, Edema of both legs R60.0 ; [place], [place] Acquired d eformity of right [address] foot M21.961 ; P eripheral arterial disease I73.9 ; History of arter ial bypass of lower extremi ty Z95.828 ; termite inspector curren t use of insulin Z79.4 an d Type 2 diabetes mellitu s with diabetic neuropa thy, unspecified E11. [address] [facility] Mar, [place] [address] [address] Mar, Edema of both legs R60.0 ; [place], [place] Acquired d eformity of right [address] foot M21.961 ; P eripheral arterial disease I73.9 ; History of arter ial bypass of lower extremi ty Z95.828 ; termite inspector curren t use of insulin Z79.4 an d Type 2 diabetes mellitu s with diabetic neuropa thy, unspecified E11. 40 [facility] Feb, Edema of both legs R60.0 ; [place] [address] Ulcer of lef t calf, limited to breakdown of skin L97.221 ; Acquired defor mity of right foot M21.9 61 ; Peripheral arter ial disease I73.9 ; History of arterial bypass of lower extremity Z95.828 ; Long t erm current use of insulin Z 79.4 and Type 2 diabetes mellitus with diabetic ne uropathy, unspecified E11. 40 [facility] 1 Feb, [place] [address] [facility] Feb, Edema of both legs R60.0 ; [place] [address] Ulcer of rig ht calf, limited to [...] uropathy, unspecified E11. 40 [facility] [address] [facility] Feb, [place] [address] [facility] [address] [facility] [address] Feb, [place] [address] [facility] [address] [facility] [address] Jan, [place] [address] [facility] [address] [facility] [address] Jan, [place] [address] [facility] [address] [facility] [address] Jan, [place] [address] [facility] [address] [facility] [address] Jan, [place] [address] [facility] [address] [facility] [address] Jan, [place] [address] [facility] [address] [facility] [address] Dec, [place] [address] [facility] [address] [facility] [address] Dec, [place] [address] [facility] [address] [facility] [address] Dec, [place] [address] [facility] [address] [facility] [address] Dec, [place] [address] [facility] Dec, [place] [address] [facility] [address] [facility] [address] Dec, [place] [address] [facility] November, [place] [address] [facility] November, [place] [address] [facility] November, [place] [address] [facility] November, [place] [address] [facility] November, [place] [address] [facility] November, [place] [address] UNKNOWN November, [facility] [address] November, OFFICE [place] [address] [facility] November, [place], [place] [address] [facility] Oct, [place] [address] [facility] Oct, [place] [address] [facility] Oct, [place] [address] [facility] [address] 18 Oct, 2017 [place] [address] [facility] 16 Oct, 2017 [place] [address] [facility] [place] 16 Oct, 2017 [facility] [address] [facility] [address] [facility] Oct, [place] [address] [facility] [address] [facility] Oct, [place] [address] [facility] Oct, [place] [address] [facility] [address] Sep, [facility] [address] [facility] Sep, [place] [address] [facility] [address] [place] Sep, [place] [address] [facility] [address] Sep, [place] [address] [facility] [address] Sep, [place] [address] [facility] [address] Sep, Critical ischemi a of lower [place] [address] extremity I 99.8 ; Local infection of the skin and subcutaneous tis lindsey, unspecified L08. 9 and Type 2 diabetes mellitu s with other skin complicatio ns E11.628 [facility] Sep, [place] [address] [facility] [address] [facility] [address] Sep, [place] [address] [facility] [address] [facility] [address] Sep, [place] [address] [facility] [address] [facility] 14 Sep, [address] [place] [address] [facility] Sep, [place] [address] [facility] Sep, [place] [address] [facility] [address] [facility] Sep, [place] [address] [facility] [address] [facility] Sep, [place] [address] [facility] [address] [facility] [address] Aug, [place] [address] [facility] [address] Aug, [facility] [address] [facility] [address] [place] Aug, [place] [address] SURG[facility] Aug, [place] [address] SURGERY [facility] Aug, [place] [address] [facility] Aug, [place] [address] ORTHOPEDIC OFFICE [facility] Aug, Pre-op exam Z01.818 [place] [address] [facility] Aug, [place] [address] [facility] Aug, [place] [address] [facility] Aug, [place] [address] IMMUNIZATIONS No Known Immunizations SOCIAL HISTORY Qualifiers [...] subcutaneously 22 24h Active units/mL daily Pen [place] Active Ciclopirox Externally Twice 1 application 12h [...] For Report MR Lower Ext R w/o ([id number]) 2017-09-16 See Below For Report CR C-ARM [...] A1c 03/04/18 - 6.7, [facility],[place] annually, f/u - bilateral leg edema, Pt [...] at wound center,lab work done 03/07/2018 @ [facility], Patient came in with tubigrip bilateral , wound clin est, wound clinest, Wound CTR-follow up, Wound CTR-follow up, Wound CTR-follow up, Peer to Peer w/ Dr. Espino, Wound CTR-follow up, Wound CTR-follow up, Sintering Press Operator Documentation, LAB, Wound CTR-follow up, Wound CTR-follow up, Wound CTR-follow up, Wound CTR-follow up, LAB, LAB, Wound CTR- follow up, Wound CTR-follow up, Wound CTR-follow up, Sintering Press Operator Documentation, [facility], Wound CTR-follow up, Wound CTR-follow up, Pull PICC Line, Wound CTR-follow up, Wound CTR-follow up, LAB, Still taking doxycycline 100mg? , Wound CTR-follow up, Wound CTR-follow up, Wound CTR-follow up, Sintering Press Operator Documentation, Wound CTR-follow up, Wound CTR-follow up, Call back, Sintering Press Operator Documentation, Sintering Press Operator Documentation, Sintering Press Operator Documentation, Wound CTR-follow up, WCC, Wound CTR-follow up, Wound CTR-follow up, labs, D/C planning, bailey smetatarsal amputation of right foot, LAB, LAB, Wound CTR-NEW Insurance Providers [facility] Member Patient Patient Patient Patient Patient Subscriber Subscriber Subscriber Group Insurance Plan Plan Plan Plan ID Relationship Address Phone Name Date of ID Name Date of No Type Insurance Insurance Insurance Coverage to Subscriber Address Phone Name Dates OTHER MALINA [phone] OTHER GREGORY [id number] GRANT 1^MAIN [facility] [place] [facility] [id number] SELF PAY [address] STRE[address] SELF PAY self GREGORY [id number] AFTER BLUE [place] AFTER BLUE [facility] [id number] CROSS MEDICARE 3000 GOFFS MEDICARE self GREGORY [id number] 1 [id number] [facility] [id number] S-BLUE [phone] S-BLUE [place]REG[place] [id number] [address] [address] [place] [address] [place]
--- OUTSIDE RECORDS SUMMARY | 2022-04-01 10:15 | XMS_ITS | Encounter Summary ---
:1945 Author Organization [facility] Address [address] [place] [address] Care Team Providers Name Role Phone Unavailable Primary Care Provider Unavailable Encounter Details Date Type Department Care Team Description 03/05/2014 Hospital Encounter [facility]- Heather Unknown, Provider, [facility] 0 [facility] [phone] [place] [address] (Work) [phone] Social History Tobacco Use Types Packs/Day Years [...]
--- OUTSIDE RECORDS SUMMARY | 2022-04-01 10:15 | XMS_ITS | Encounter Summary ---
:1945 Author Organization [facility] Address [address] [place] [address] Care Team Providers Name Role Phone Lovely Vicente MD Primary Care Provider Encounter Details Date Type Department Care Team Description 04/04/2021 Lab Requisition [facility] Outr Resulting Lab, Pathology & Laboratory Provider [facility] [address] [place] [address] Social History Tobacco Use Types Packs/Day Years [...] nature Salmonella PCR Negative Negative [facility] Shigella/Enteroinvasive Negative Negative [facility] HN LAB CAMPYLOBACTER PCR Negative Negative [facility] Shiga Toxin PCR Negative Negative [facility] Specimen Feces - Specimen from rectum (specimen) Performing Organization Address City/State/ZIP Code Phon e Number [facility] [address] [place] [address] SERVICES documented in this encounter Visit Diagnoses Not on filedocumented in this encounter Care Teams Hospital Admitting Clerk Relationship Specialty Start Date End Date Lovely Vicente MD PCP - General 07/13/14 documented as of this encounter
--- OUTSIDE RECORDS SUMMARY | 2022-04-01 10:15 | XMS_ITS | Encounter Summary ---
:1945 Author Organization [facility] Address [address] [place] [address] Care Team Providers Name Role Phone Lovely Vicente MD Primary Care Provider Encounter Details Date Type Department Care Team Description 01/28/[address] [facility] Outr Resulting Lab, Pathology & Laboratory Provider [facility] [address] [place] [address] Social History Tobacco Use Types Packs/Day Years Used Date Never Assessed Sex Assigned at Date Recorded Not on file documented as of this encounter Plan of Treatment Not on filedocumented as of this encounter Procedures Procedure Name Priority Date/Time Associated Diagnosis Comme nts COVID-19 TEST [facility] Today 01/27/2022 14:30 LAB PCR EDT COVID-19 TESTING Routine 01/27/2022 14:30 Results for this EDT procedure are i n the results section. documented in this encounter Results COVID-19 TEST [facility] LAB PCR (01/27/2022 14:30 EDT) Specimen Swab Performing Organization Address City/State/ZIP Code Phon e Number [facility] [address] [place] [address] SERVICES COVID-19 TESTING (01/27/2022 14:30 EDT) COVID-19 [...] was performed using the meliton SARS-CoV-2 assay ([employer] on the Meliton 6800 System Performing Lab Meliton 6800 [facility] Lab [facility] SERVICES Specimen Swab Performing Organization Address City/State/ZIP Code Phon e Number [facility] [address] [place] [address] SERVICES documented in this encounter Visit Diagnoses Not on filedocumented in this encounter Care Teams Supply Chain Associate Relationship Specialty Start Date End Date Lovely Vicente MD PCP - General 07/13/14 documented as of this encounter
--- OUTSIDE RECORDS SUMMARY | 2022-04-01 10:15 | XMS_ITS | Encounter Summary ---
:1945 Author Organization [facility] Address [address] [place] [address] Care Team Providers Name Role Phone Unknown, Provider Primary Care Provider Encounter Details Date Type Department Care Team Description 03/05/2014 Results Only [facility] Eris Taylor MD Laboratory Services - [address] [place] [address] [place] [address] [phone] Social History Tobacco Use Types Packs/Day Years [...] ? DON HOANG ? Accession #: ? [id number] ? : ? 1945 (Age: 68) ??M [...] e Number [facility] [address] [place] [address] SERVICES [facility] [address] [place] [address] documented in this encounter Visit Diagnoses Not on filedocumented in this encounter Care Teams Lion Tamer Relationship Specialty Start Date End Date Unknown, Provider, PCP - General 03/07/14 07/12/14 documented as of this encounter
--- OUTSIDE RECORDS SUMMARY | 2022-04-01 10:15 | XMS_ITS | Encounter Summary ---
:[address] [facility] Address [address] [place] [address] Care Team Providers Name Role Phone Lovely Vicente MD Primary Care Provider Encounter Details Date Type Department Care Team Description 01/17/2021 Lab Requisition [facility] Outr Resulting Lab, Pathology & Laboratory Provider [facility] [address] [place] [address] Social History Tobacco Use Types Packs/Day Years [...] nature PSA 2.9 0.0 - 6.5 ng/mL [facility] Specimen Blood - Venous blood (substance) Narrative [facility] - 01/17/2021 17:46 EDT NOTE: Serum PSA concentration should not be in terpreted as absolute evidence for the presence or absence of malignant disease. Assayed on Siem[employer] Centaur XPT usi ng chemiluminescent technology.??Values obtained by using different assay methods cannot be used interchangeably. Performing Organization Address City/State/ZIP Code Phon e Number [facility] [address] [place] [address] SERVICES documented in this encounter Visit Diagnoses Not on filedocumented in this encounter Care Teams Artificial Breeding Ranch Supervisor Relationship Specialty Start Date End Date Lovely Vicente MD PCP - General 07/13/14 documented as of this encounter
--- OUTSIDE RECORDS SUMMARY | 2022-04-01 10:15 | XMS_ITS | Encounter Summary ---
:1945 Author Organization [facility] Address [address] [place] [address] Care Team Providers Name Role Phone Lovely Vicente MD Primary Care Provider Encounter Details Date Type Department Care Team Description 08/11/2019 Lab Requisition [facility] Unknown, Provider, Pathology & Laboratory [facility] [address] [facility] [place] [address] Social History Tobacco Use Types Packs/Day Years [...] Pathologist Sig nature Salmonella PCR Negative Negative [facility] Shigella/Enteroinvasive Negative Negative [facility] R E. coli LABORATORY SERVICES HN LAB CAMPYLOBACTER PCR Negative Negative [facility] ER [facility] SERVICES Shiga Toxin PCR Negative Negative [facility] Specimen Feces - Specimen from rectum (specimen) Performing Organization Address City/State/ZIP Code Phon e Number [facility] [address] [place] [address] SERVICES documented in this encounter Visit Diagnoses Not on filedocumented in this encounter Care Teams Small Lot Operator Relationship Specialty Start Date End Date Lovely Vicente MD PCP - General 07/13/14 documented as of this encounter
--- OUTSIDE RECORDS SUMMARY | 2022-04-01 10:15 | XMS_ITS | Encounter Summary ---
:1945 Author Organization [facility] Address [address] [place] [address] Care Team Providers Name Role Phone Lovely Vicente MD Primary Care Provider Encounter Details Date Type Department Care Team Description 02/20/2022 Lab Requisition [facility] Outr Resulting Lab, Pathology & Laboratory Provider [facility] [address] [place] [address] Social History Tobacco Use Types Packs/Day Years [...] Pathologist Sig nature PSA 2.7 <=6.5 ng/mL [facility] Y SERVICES Specimen Blood - Venous blood (substance) Narrative [facility] - 02/20/2022 18:17 EDT NOTE: Serum PSA concentration should not be in terpreted as absolute evidence for the presence or absence of malignant disease. Assayed on Siemens [employer] Centaur XPT usi ng chemiluminescent technology.??Values obtained by using different assay methods cannot be used interchangeably. Performing Organization Address City/State/ZIP Code Phon e Number [facility] [address] [place] [address] SERVICES documented in this encounter Visit Diagnoses Not on filedocumented in this encounter Care Teams Last Putter Away Relationship Specialty Start Date End Date Lovely Vicente MD PCP - General 07/13/14 documented as of this encounter
--- OUTSIDE RECORDS SUMMARY | 2022-04-01 10:15 | XMS_ITS | Encounter Summary ---
:1945 Author Organization [facility] Address [address] [place] [address] Care Team Providers Name Role Phone Lovely Vicente MD Primary Care Provider Encounter Details Date Type Department Care Team Description 01/01/2020 Lab Requisition [facility] Outr Resulting Lab, Pathology & Laboratory Provider [facility] [address] [place] [address] Social History Tobacco Use Types Packs/Day Years [...] nature PSA 2.1 0.0 - 6.5 ng/mL [facility] Specimen Blood - Venous blood (substance) Narrative [facility] - 01/02/2020 10:40 EDT NOTE: Serum PSA concentration should not be in terpreted as absolute evidence for the presence or absence of malignant disease. Assayed on Siemens ADVIA Centaur XPT usi ng chemiluminescent technology.??Values obtained by using different assay methods cannot be used interchangeably. Performing Organization Address City/State/ZIP Code Phon e Number [facility] [address] [place] [address] SERVICES documented in this encounter Visit Diagnoses Not on filedocumented in this encounter Care Teams Insulator Helper Relationship Specialty Start Date End Date Lovely Vicente MD PCP - General 07/13/14 documented as of this encounter
--- OUTSIDE RECORDS SUMMARY | 2022-04-06 10:35 | XMS_ITS | Encounter Summary ---
:1945 Author Organization [facility] [address] Care Team Providers Name Role Phone Lovely Vicente MD Primary Care Provider Encounter Details Date Type Department Care Team Description 02/19/2022 Laboratory Appointment Lab 3L [facility] [place] [id number] Social History Tobacco Use Types Packs/Day Years [...] MD [facility] er [address] [place], [place] [address] (Wo rk) 05/28/2022 Laboratory Appointment Lab 05/28/2022 Office Visit Cardiology Zulma Dolan MD [facility] [place] [address] Liz Poole PA [facility] [place] [address] 06/10/2022 Office Visit Dermatology Laura Scherer MD [facility] [address] [place] [address] (Wo rk) documented as of this encounter [...] (ABNORMAL) Differential, Automated (02/19/2022 8:06 AM EDT) [facility] gist Method Time Signature Neutrophils % 76.0 % [facility] Neutr Abs (ANC) 5.49 1.70 - [facility] 6.10 [facility] x10(3)/[facility] LABORATORY Lymphocytes % 10.8 % [facility] Lymphocytes Abs 0.8 (L) 0.9 - 3.2 [facility] x10(3)/[facility] LABORATORY Monocytes % 10.2 % [facility] Monocyte Abs 0.7 0.3 - 0.9 [facility] x10(3)/[facility] LABORATORY Eosinophils % 1.2 % [facility] Eosinophils Abs 0.1 0.0 - 0.4 [facility] x10(3)/[facility] LABORATORY Basophils % 0.8 % [facility] Basophils Abs 0.1 0.0 - 0.1 [facility] x10(3)/[facility] LABORATORY [...] Organization Address City/State/[place] [address] (ABNORMAL) Hemogram (02/19/2022 8:06 AM EDT) Analysis Performed At Patho logist Time Signature WBC 7.2 4.0 - 9.5 [facility] x10(3)/[facility] LABORATORY RBC 4.41 (L) 4.58 - [facility] 5.54 [facility] x10(6)/[facility] LABORATORY Hemoglobin 13.2 (L) 13.7 - [facility] 16.[facility] g/dL [facility]ORY Hematocrit 40.9 40.5 - [facility] 48.5 % [facility] LABORATORY MCV 92.7 82.9 - [facility] 93.1 [facility] LABORATORY MCH 29.9 27.5 - [facility] 32.1 pg [facility] LABORATORY MCHC 32.3 32.0 - [facility] 35.7 g/dL [facility]ORY Platelets 191 145 - 357 [facility] x10(3)/[facility] LABORATORY RDWSD 53.6 (H) 36.0 - [facility] 45.0 [facility] LABORATORY RDWCV 15.6 (H) 11.4 - [facility] 13.8 % [facility] LABORATORY MPV 8.7 7.6 - 12.9 [facility] LABORATORY nRBC % Auto 0.0 % [facility] nRBC Abs Auto 0.000 0.000 - [facility] 0.000 [facility] x10(3)/[facility] LABORATORY Specimen Anatomical Collection Method Collection Time Receive d Time (Source) Location / / Volume Laterality Blood 02/19/2022 8:06 AM 2 8:09 EDT AM EDT Resulting Agency Comment Spec In Lab Liz BROWN HEMATOLOGY ORDERABLES Performing Organization Address City/[facility]/[place] [address] (ABNORMAL) pro-Brain Natriuretic Peptide [...] Organization Address City/State/[place] [address] (ABNORMAL) Basic Metabolic Panel (non-fasting) (02/19/2022 8:06 AM EDT) P athologist Signature Glucose Lvl 139 65 - 199 [facility] mg/dL [facility]ORY Comment: Diabetes: >=200 mg/dL plus symp toms BUN 31 (H) 10 - 20 mg/dL [facility] Creatinine 1.53 (H) 0.80 - 1.50 mg/dL [facility] [...] Organization Address City/State/[place] [address] documented in this encounter Visit Diagnoses Diagnosis Chronic systolic heart failure documented in this encounter Care Teams Fishing Rod Marker Relationship Specialty Start Date End Date Lovely Vicente MD PCP - General 04/16/[address] [place] [address] documented as of this encounter
--- OUTSIDE RECORDS SUMMARY | 2022-04-06 10:35 | XMS_ITS | Encounter Summary ---
:1945 Author Organization [facility] [place] [address] Care Team Providers Name Role Phone Lovely Vicente MD Primary Care Provider Reason for Visit Reason Onset Date Comments Advice Only 01/28/2022 Encounter Details Date Type Department Care Team Description 01/28/2022 Telephone [place] [facility] Chitra Angela, special [place] [address] Social History Tobacco Use Types Packs/Day [...] Fatima assists patient with medications. Number for mechanical laboratory technician scheduling given and she will call them to verify this information Meds reviewed. As per our form from mechanical laboratory technician Eliquis hold for 48 hours [...] Dolan MD [facility] [address] [place], [place] [address] (Wo rk) 05/28/2022 Laboratory Appointment Lab 05/28/2022 Office Visit Cardiology Zulma Dolan MD [facility] [place] [address] Liz Poole PA [facility] [place] [address] 06/10/2022 Office Visit Dermatology Laura Scherer MD [facility] DR [address] [place], [place] [address] (Wo rk) documented as of this encounter Visit Diagnoses Not on filedocumented in this encounter Care Teams Coding Director Relationship Specialty Start Date End Date Lovely Vicente MD PCP - General 04/16/[address] [place] [address] documented as of this encounter
--- OUTSIDE RECORDS SUMMARY | 2022-04-06 10:35 | XMS_ITS | Encounter Summary ---
:1945 Author Organization [facility] [place] [address] Care Team Providers Name Role Phone Lovely Vicetne MD Primary Care Provider Encounter Details Date Type Department Care Team Description 03/26/2022 Office Visit Cardiology at [facility] Vitaliy Nobles MD Chronic systolic heart failure; [facility] ONE MEDICAL ASCVD (ar teriosclerotic cardiovascular disease); [facility] Cardiomyopathy, ischemic [place], [place] CARDIOLOGY [address] [place] [address] [phone] Social History Tobacco Use Types Packs/Day Years [...] from the original note were not included. [facility] [place] [address] CARDIOLOGY OUTPATIENT CLINIC VISIT [facility] Don Mccollum Kushal 03/26/2022 Referring Providers: MD Jules Cr Joyce, MD [address] [place] [id number] CHIEF COMPLAINT: I am doing well CARDIAC-RELEVANT [...] using a 2.0 x 26 mm ORION Lincoln TUCKER stent. This completes therevascularization of all [...] in [address] Lovely Vicente MD [address] [place] [id number] HISTORY OF PRESENT ILLNESS: Don Fatima is [...] using a 2.0 x 26 mm ORION Lincoln TUCKER stent. This completes the revascularization of [...] 12.71) performed by Yonathan Smith MD at [facility] OR ??? PRO CABG, ARTERIAL, SINGLE N/A 07/07/2017 @CABG, USING ARTERIAL GRAFT;SINGLE ARTERIAL GRAFT (WRVU 33.75) performed by Yuan Retana MD at [facility] OR ??? PRO CABG, ARTERY-VEIN, [...] [facility] OR ??? PRO PERC TRLUML CORONARY STENT W/ANGIO ONE ART/BRANCH N/A 01/30/2022 STENT PLACEMENT-SINGLE MAJOR CORONARY ARTERY OR BRANCH performed by Vitaliy Nobles MD at [facility] CATH LABS ??? PRO THYROIDECTOMY 03/28/2013 THYROIDECTOMY, TOTAL OR COMPLETE performed by Manny Mcknight MD at [facility] OR SOCIAL HISTORY: reports that [...] using a 2.0 x 26 mm ORION Lincoln TUCKER stent. This completes the revascularization of [...] Sincerely, Dr. Vitaliy Nobles MD [employer] Tank Farm Operator Interventional Cardiology 03/26/2022 CC: Lovely Vicente MD [...] As per DC Summary - Admitted to [facility] on 12/08[facility], [facility] [...] planned for December 31. Now s/p PCI TCUKER to RPDA; still with severe diffuse distal [...] regurgitation present. 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 Post-op atrial fibrillation [id number] (CHF, HTN, DM, vascular disease, thromboembolism) Eliquis 7. PAD 08/06/2017: Right 1st, 2nd, 3rd toe amputation 08/11/2017: Left??femoral arterial access, RLE??angiogram, Balloon angioplasty of R PT 10/25/2017: right popliteal-pedal bypass at [facility] 8. Hypothyrodism S/p thyroidectomy for goiter Levothyroxine ?? Plan: 3 months in clinic with labs and TTE Liz Poole PA-C 03/26/2022 documented in this encounter Plan of Treatment Upcoming Encounters Date Type Specialty Care Team Description 05/28/2022 Appointment Cardiology Zulma Dolan MD [facility] [place] [address] (Wo rk) 05/28/2022 Laboratory Appointment Lab 05/28/2022 Office Visit Cardiology Zulma Dolan MD [facility] [place] [address] Liz Poole PA [facility] [place] [address] 06/10/2022 Office Visit Dermatology Laura Scherer MD [facility] DR [address] [place], [place] [address] (Wo rk) documented as of this encounter Visit Diagnoses Diagnosis Chronic systolic heart failure ASCVD (arteriosclerotic cardiovascular d isease) Unspecified cardiovascular disease Cardiomyopathy, ischemic Other specified forms of chronic ischemi c heart disease documented in this encounter Care Teams Industrial Tractor Driver Relationship Specialty Start Date End Date Lovely Vicente MD PCP - General 04/16/[address] [place] [address] documented as of this encounter
--- OUTSIDE RECORDS SUMMARY | 2022-04-06 10:35 | XMS_ITS | Encounter Summary ---
:1945 Author Organization [facility] [place] [address] Care Team Providers Name Role Phone Lovely Vicente MD Primary Care Provider Reason for Visit Reason Onset Date Comments Medication Refill 12/12/2021 Torsemide Encounter Details Date Type Department Care Team Description 12/12/2021 Refill Cardiology at [facility] aJnneth Padilla, Medication Refill [facility] STEPHANIE ([place]) [place] [address] CARDIOLOGY DEPT. [place], [place] [address] (Wo rk) Social History [...] Description 05/28/2022 Appointment Cardiology Zulma Dolan MD [facility] er [address] [place], [place] [address] (Wo rk) 05/28/2022 Laboratory Appointment Lab 05/28/2022 Office Visit Cardiology Zulma Dolan MD [facility] [place] [address] Liz Poole PA [facility] [place] [address] 06/10/2022 Office Visit Dermatology Laura Scherer MD [facility] ER DR [address] [place], [place] [address] (Wo rk) documented as of this encounter Visit Diagnoses Diagnosis Chronic systolic heart failure documented in this encounter Care Teams Feed Mill Lab Technician Relationship Specialty Start Date End Date Lovely Vicente MD PCP - General 04/16/[address] [place] [address] documented as of this encounter
--- OUTSIDE RECORDS SUMMARY | 2022-04-06 10:35 | XMS_ITS | Encounter Summary ---
:1945 Author Organization [facility] [place] [address] Care Team Providers Name Role Phone Lovely Vicente MD Primary Care Provider Reason for Visit Auth/Cert Specialty Diagnoses / Procedures Referred By Contact Refer red To Contact Diagnoses ASCVD (arteriosclerotic cardiovascular disease) [I25.10] Vitaliy Nobles MD [facility] Procedures PRO PERC TRLUML CORONARY STENT W/ANGIO ONE ART/BRANCH CARDIAC CATHETERIZATION STENT PLACEMENT-SINGLE MAJOR CORONARY ARTERY OR BRANCH [facility] [place] [address] Referral ID Status Reason Start Date Expiration Date Visits Requ ested Visits Authorized [id number] 1 1 Encounter Details Date Type Department Care Team Description 01/30/2022 Laboratory Lab 3L [facility] ASCVD (arterios clerotic Appointment [facility] cardiovas cular disease) [place] [address] Social History Tobacco Use Types Packs/Day Years [...] Dolan MD [facility] [place], [place] [address] (Wo rk) 05/28/2022 Laboratory Appointment Lab 05/28/2022 Office Visit Cardiology Zulma Dolan MD [facility] [place] [address] Liz Poole PA [facility] [place] [address] 06/10/2022 Office Visit Dermatology Laura Scherer MD [facility] DR [address] [place], [place] [address] (Wo rk) documented as [...] (ABNORMAL) Differential, Automated (01/30/2022 7:19 AM EDT) [facility] gist Method Time Signature Neutrophils % 77.9 % [facility] Neutr Abs (ANC) 5.31 1.70 - [facility] 6.10 [facility] x10(3)/[facility] LABORATORY Lymphocytes % 12.0 % [facility] Lymphocytes Abs 0.8 (L) 0.9 - 3.2 [facility] x10(3)/[facility] LABORATORY Monocytes % 8.1 % [facility] Monocyte Abs 0.6 0.3 - 0.9 [facility] x10(3)/[facility] LABORATORY Eosinophils % 0.4 % [facility] Eosinophils Abs 0.0 0.0 - 0.4 [facility] x10(3)/[facility] LABORATORY Basophils % 0.6 % [facility] Basophils Abs 0.0 0.0 - 0.1 [facility] x10(3)/[facility] LABORATORY Immature Gran % 1.00 % ST [...] Abs 0.07 (H) 0.00 - 0.04 x10(3)/[facility] LABORATORY Specimen Anatomical Collection Method Collection Time Receive d Time (Source) Location / / Volume Laterality Blood 01/30/2022 7:19 AM 7:21 EDT AM EDT Resulting Agency Comment Spec In Lab Zulma BROWN HEMATOLOGY ORDERABLES Performing Organization Address City/State/ZIP [place] [address] (ABNORMAL) Hemogram (01/30/2022 7:19 AM EDT) Analysis Performed At Patho logist Time Signature WBC 6.8 4.0 - 9.5 [facility] x10(3)/[facility] LABORATORY RBC 4.32 (L) 4.58 - [facility] 5.54 [facility] x10(6)/[facility] LABORATORY Hemoglobin 13.0 (L) 13.7 - [facility] 16.[facility] g/dL [facility] Hematocrit 39.8 (L) 40.5 - [facility] 48.5 % [facility] MCV 92.1 82.9 - [facility] 93.1 fL [facility] MCH 30.1 27.5 - [facility] 32.1 pg [facility] MCHC 32.7 32.0 - [place] 35.7 g/dL [facility] Platelets 172 145 - 357 [facility] x10(3)/[facility] LABORATORY RDWSD 54.5 (H) 36.0 - [place] 45.0 [facility] LABORATORY RDWCV 16.2 (H) 11.4 - [facility] 13.8 % [facility] MPV 9.0 7.6 - 12.9 [facility] LABORATORY nRBC % Auto 0.0 % [facility] nRBC Abs Auto 0.000 0.000 - [facility] 0.000 [facility] x10(3)/[facility] LABORATORY Specimen Anatomical Collection Method Collection Time Receive d Time (Source) Location / / Volume Laterality Blood 01/30/2022 7:19 AM 7:21 EDT AM EDT Resulting Agency Comment Spec In Lab Zulma BROWN HEMATOLOGY ORDERABLES Performing Organization Address City/State/ZIP [place] [address] (ABNORMAL) Basic Metabolic Panel (non-fasting) (01/30/2022 7:19 AM EDT) P athologist Signature Glucose Lvl 237 (H) 65 - 199 [facility] mg/dL [facility] Comment: Diabetes: >=200 [...] City/State/ZIP Code Phon e Number [place] [phone] HOSPITAL LABORATORY [address] documented in this encounter Visit Diagnoses Diagnosis ASCVD (arteriosclerotic cardiovascular d isease) Unspecified cardiovascular disease documented in this encounter Care Teams Photoresist Contact Printer Relationship Specialty Start Date End Date Lovely Vicente MD PCP - General 04/16/[address] [place] [address] documented as of this encounter
--- OUTSIDE RECORDS SUMMARY | 2022-04-06 10:35 | XMS_ITS | Encounter Summary ---
:1945 Author Organization [facility] [place] [address] Care Team Providers Name Role Phone Lovely Vicente MD Primary Care Provider Encounter Details Date Type Department Care Team Description 12/15/2021 Telephone Cardiology at [facility] Barbara Mera, [place] [address] Social History Tobacco Use Types Packs/Day [...] go to low. Mrs Fatima confirms Mr Ftaima's PCP prescribes both his Levothyroxine, and Metoprolol, [...] Appointment Cardiology Zulma Dolan MD [facility] [place], [place] [address] (Wo rk) 05/28/2022 Laboratory Appointment Lab 05/28/2022 Office Visit Cardiology Zulma Dolan MD [facility] [place] [address] Liz Poole PA [facility] [place] [address] 06/10/2022 Office Visit Dermatology Laura Scherer MD [facility] DR [address] [place], [place] [address] (Wo rk) documented as of this encounter Visit Diagnoses Not on filedocumented in this encounter Care Teams Head Paper Tester Relationship Specialty Start Date End Date Lovely Vicente MD PCP - General 04/16/15 [facility] [address] [place] [address] documented as of this encounter
--- OUTSIDE RECORDS SUMMARY | 2022-04-06 10:35 | XMS_ITS | Encounter Summary ---
:1945 Author Organization [facility] Address [facility] [place] [address] Care Team Providers Name Role Phone Lovely Vicente MD Primary Care Provider Reason for Visit Auth/Cert Specialty Diagnoses / Procedures Referred By Contact Refer red To Contact Diagnoses ASCVD (arteriosclerotic cardiovascular disease) [I25.10] Vitaliy Nobles MD [facility] Procedures PRO PERC TRLUML CORONARY STENT W/ANGIO ONE ART/BRANCH CARDIAC CATHETERIZATION STENT PLACEMENT-SINGLE MAJOR CORONARY ARTERY OR BRANCH [facility] [place] [address] Referral ID Status Reason Start Date Expiration Date Visits Requ ested Visits Authorized [id number] 1 1 Encounter Details Date Type Department Care Team Description 01/30/2022 Surgery Communications Equipment Supervisor Asa Coulter MD CARDIAC CATHETERIZATION [facility] [place] [address] [place] [address] [phone] (Wo rk) Social History Tobacco Use Types [...] and Clopidogrel. Please follow up with your manager of enterprise in the next 4-6 weeks. We have made a referral to cardiac rehab. Please see the attached instructions regarding care to your right wrist access site. AttachmentsThe following attachments cannot be sent through Care Everywhere. Coronary Angiogram: Post-op (Russian)documented in this encounter Medications at Time of [...] Murray RN - 01/30/2022 4:54 PM EDT [facility] Short Stay Unit Discharge Note All relevant [...] had referred him to cardiac rehab at [facility] last month per HF team. He was waiting until this intervention before starting the program. Reviewed managing angina /use of sl nitroglycerin. Given parameters for home exercise. 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 We discussed short walks several times per day. Will send [facility] his discharge summary from this admission. The patient should be contacted by the Program within 1- 2 weeks from discharge. Brief Op Note - Vitaliy Nobles MD - 01/30/2022 10:19 AM EDT Images from the original note were not included. [facility] [place] [address] CORONARY ANGIOGRAM AND PERCUTANEOUS CORONARY INTERVENTION REPORT Patient: Don Fatima : 1945 MR number: [id number] Date of Service: 01/30/2022 Web Content Coordinator: Vitaliy Nobles MD Fellow: KEYON Elizabeth INDICATION: [...] a long 2.0 x 26 mm HARDEEP Buchanan TUCKER stent and positioned it at the [...] using a 2.0 x 26 mm HARDEEP Buchanan TUCKER stent. This completes the revascularization ofall [...] [facility] er Dr Sarabia MD 0375 (Wo rk) 05/28/2022 Laboratory Appointment Lab 05/28/2022 Office Visit Cardiology Zulma Dolan MD [facility] [place] [address] Liz Poole PA [facility] [place] [address] 06/10/2022 Office Visit Dermatology Laura Scherer MD [facility] ER DR TEJA GR-DERMAT [facility] [place] MD 0375 (Wo rk) Scheduled Orders Name Type [...] Abs (ANC) 3.96 1.70 - [facility] 6.10 [facility] x10(3)/[facility] LABORATORY Lymphocytes % 16.3 % [facility] LABORATORY Lymphocytes Abs 0.9 0.9 - 3.2 [facility] x10(3)/[facility] LABORATORY Monocytes % 10.0 % [facility] LABORATORY Monocyte Abs 0.6 0.3 - 0.9 [facility] x10(3)/[facility] LABORATORY Eosinophils % 0.5 % [facility] LABORATORY Eosinophils Abs 0.0 0.0 - 0.4 [facility] x10(3)/[facility] LABORATORY Basophils % 0.5 % [facility] LABORATORY Basophils Abs 0.0 0.0 - 0.1 [facility] x10(3)/[facility] LABORATORY Immature Gran % 0.90 % [facility] [...] Organization Address City/State/[place] [address] (ABNORMAL) Hemogram (01/30/2022 2:12 PM EDT) Analysis Performed At Patho logist Time Signature WBC 5.5 4.0 - 9.5 [facility] x10(3)/[facility] LABORATORY RBC 4.30 (L) 4.58 - [facility] 5.54 [facility] x10(6)/[facility] LABORATORY Hemoglobin 12.7 (L) 13.7 - [place] 16.5 g/dL [facility] LABORATORY Hematocrit 39.4 (L) 40.5 - [place] 48.5 % [facility] LABORATORY MCV 91.6 82.9 - [place] 93.1 [facility] LABORATORY MCH 29.5 27.5 - [place] 32.1 pg [facility] LABORATORY MCHC 32.2 32.0 - [place] 35.7 g/dL [facility] LABORATORY Platelets 172 145 - 357 [place] x10(3)/[facility] LABORATORY RDWSD 54.5 (H) 36.0 - [place] 45.0 [facility] LABORATORY RDWCV 16.4 (H) 11.4 - [place] 13.8 % [facility] LABORATORY MPV 9.2 7.6 - 12.9 [place] ZHAOSU [facility] LABORATORY nRBC % Auto 0.0 % [facility] LABORATORY nRBC Abs Auto 0.000 0.000 - [place] ZHAOS[place] 0.000 [facility] x10(3)/[facility] LABORATORY Specimen Anatomical Collection Method Collection Time Receive d Time (Source) Location / / Volume Laterality Blood 01/30/2022 2:12 PM 2 2:37 EDT PM EDT Resulting Agency Comment Spec In Lab Eddi Elizabeth Jr., MD HEMATOLOGY ORDERABLES Performing Organization Address City/State/[place] [address] (ABNORMAL) Basic Metabolic Panel (non-fasting) (01/30/2022 2:12 PM EDT) P athologist Signature Glucose Lvl 163 65 - 199 [facility] LABORATORY Comment: Diabetes: [...] Organization Address City/State/[place] [address] POCT Glucose (01/30/2022 1:41 PM EDT) P athologist Signature POC Glucose 148 65 - 199 [facility] mg/dL [facility] LABORATORY Comment: Supplemental ranges: <140 mg/dL before meals <180 mg/dL all other times of the day Specimen Anatomical Collection Method Collection Time Receive d Time (Source) Location / / Volume Laterality Blood 01/30/2022 1:41 PM 2 1:41 EDT PM EDT Vitaliy Nobles MD POINT OF CARE TEST ORDERABLE S Performing Organization Address City/State/ZIP Code Phon e Number [address] POCT Glucose (01/30/2022 10:48 AM EDT) P athologist Signature POC Glucose 193 65 - 199 [place] mg/dL [facility] LABORATORY Comment: Supplemental ranges: <140 mg/dL before meals <180 mg/dL all other times of the day Specimen Anatomical Collection Method Collection Time Receive d Time (Source) Location / / Volume Laterality Blood 01/30/2022 10:48 01/30/2022 AM EDT 10:48 AM EDT Vitaliy Sandra Nobles MD POINT OF CARE TEST ORDERABLE S Performing Organization Address [facility]/ZIP Code Phon e Number [address] EKG 12 Lead (01/30/2022 10:33 AM EDT) Component Value Ref Range Test Analysis Performed Pathologis t Method Time At Signature Ventricular rate 64 BPM MUSE SYSTEM Atrial Rate 64 BPM MUSE SYSTEM P-R Interval 162 ms MUSE SYSTEM QRS Duration 94 ms MUSE SYSTEM Q-T Interval 422 ms MUSE SYSTEM QTC Calculated 435 ms MUSE SYSTEM (Bezet) Calculated P [place] 41 degrees MUSE SYSTEM Calculated R [place] -27 degrees MUSE SYSTEM Calculated T [place] 104 degrees MUSE SYSTEM INTERPRETATION Normal sinus rhythm MUSE SYSTEM Anterolateral infarct (cited on or before 09-DEC-2021) Abnormal ECG When compared with ECG of 10-DEC-2021 11:17, No significant change was found Confirmed by Gary Perez ([id number]) on 01/30/2022 5:57:5 2 PM Specimen Anatomical Collection Method Collection Time Receive d Time (Source) Location / / Volume Laterality 01/30/2022 10:33 01/30/2022 5:57 AM EDT PM EDT Vitaliy Sandra Nobles MD ECG ORDERABLES Performing Organization Address City/[facility]/ZIP Code Phon e Number MUSE SYSTEM CARDIAC CATHETERIZATION (01/30/2022 10:16 AM EDT) Anatomical Region Laterality Modality Other Specimen (Source) Anatomical Location Collection Method / Collectio n Time Received Time / Laterality Volume Narrative 01/30/2022 2:09 PM EDT ?[facility] ? Cardiac Cathete rization/Intervention Report ? Patient Name: Don Fatima. ? Procedure Date: 01/30/2022 ? A #: [id number] ? Primary Physician: Nobles, Vitaliy P ? Case #: [id number] ? File Name: [id number] ? Catheterization Order Number: [id number] ? [facility] ? Final Report [place], [place] ? Patient Name: ? Don E. Stewa rt ? ID#: ?[id number] ? : ?1945 ? Procedure Date: ? [...] procedure was Urgent. The indication for ?the biology laboratory assistant visit is stable kn own [...] guiding catheter an d a 3.5 Fr [place] [facility] [place] [address] ??20 Mhz ?using Manual pullback. ??Imagin [...] A premounted 2.00 x 26 mm Hardeep Buchanan (TUCKER) ? was deployed wi a maximum [...] Wedelivered along 2.0 x 26 mm HARDEEP Buchanan ? TUCKER stent and p ositioned it [...] dose administered prior to arrival in the biology laboratory assistant. ?Recommended anti-platelet/anti- thrombotic regimen: ?Continue [...] require ?modification of this regimen. C onsult [facility] Interventional Cardiology for ?questions. ?The 1 year [...] using a 2.0 x 26 mm HARDEEP Buchanan TUCKER stent. ?This completes the revasculariz ation [...] Note Vitaliy Nobles MD - 03/06/2022 [facility] Cardiac Catheterization/Intervention Re port Patient Name: Don Fatima Procedure Date: 01/30/2022 A #: [id number] Primary Physician: Vitaliy Nobles Case #: [id number] File Name: [id number] Catheterization Order Number: [id number] [facility] Final Report [place], [place] Patient Name: Don Fatima ID#: [...] e was Urgent. The indication for the biology laboratory assistant visit is stable known CAD. [...] 1.5 guiding catheter and a 3.5 Fr [facility] [facility] [address] 20 Mhz using Manual pullback. Imaging [...] A premounted 2.00 x 26 mm Hardeep Buchanan (TUCKER) was deployed with a maximum inflation [...] along 2. 0 x 26 mm HARDEEP Buchanan TUCKER stent and positioned it at the [...] administered prior t o arrival in the biology laboratory assistant. Recommended anti-platelet/anti-thrombot ic regimen: Continue [...] using a 2.0 x 26 mm HARDEEP Buchanan TUCKER stent. This completes the revascularization of [...] POC Glucose 212 (H) 65 - 199 [facility] mg/dL [facility] LABORATORY Comment: Supplemental ranges: <140 mg/dL before meals <180 mg/dL all other times of the day Specimen Anatomical Collection Method Collection Time Receive d Time (Source) Location / / Volume Laterality Blood 01/30/2022 9:04 AM 2 9:04 EDT AM EDT Vitaliy Nobles MD POINT OF CARE TEST ORDERABLE S Performing Organization Address City/State/[place] [address] (ABNORMAL) POCT Glucose (01/30/2022 8:10 AM EDT) P athologist Signature POC Glucose 224 (H) 65 - 199 [facility] mg/dL [facility] LABORATORY Comment: Supplemental ranges: <140 mg/dL before meals <180 mg/dL all other times of the day Specimen Anatomical Collection Method Collection Time Receive d Time (Source) Location / / Volume Laterality Blood 01/30/2022 8:10 AM 2 8:10 EDT AM EDT Vitaliy Nobles MD POINT OF CARE TEST ORDERABLE S Performing Organization Address City/State/[place] [address] documented in this encounter Visit Diagnoses Diagnosis ASCVD (arteriosclerotic cardiovascular d isease) Unspecified cardiovascular disease 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 ASHD (arteriosclerotic heart disease) Coronary atherosclerosis of unspecified type of vessel, chilkoot or graft ASCVD (arteriosclerotic cardiovascular d isease) Unspecified cardiovascular disease documented in this encounter Admitting Diagnoses Diagnosis CAD (coronary artery disease) Coronary atherosclerosis of unspecified type of vessel, chilkoot or graft documented in this encounter Administered [...] Given 02/2022 10:11 AM EDT 100 mcg (RING ROLLING MACHINE OPERATOR) ONCE PRN, Starting on Wed01/30/22 at 0927, [...] infusion 10 15 (Continued Bag - Provider: Maddiosn Farmer RN) 50 mL/hr, Intravenous, CONTINUOUS, Start [...] Procedure), Routine niCARdipine (Cardene) (100 mcg/mL) dilution (RING ROLLING MACHINE OPERATOR) (CANCELED ) 0927 (Given - [...] (Intra-Procedure) documented in this encounter Care Teams Pan Pusher Relationship Specialty Start Date End Date Lovely Vicente MD PCP - General 04/16/[address] [place] [address] documented as of this encounter
--- OUTSIDE RECORDS SUMMARY | 2022-04-06 10:35 | XMS_ITS | Encounter Summary ---
:1945 Author Organization [place] [address] Care Team Providers Name Role Phone Lovely Vicente MD Primary Care Provider Encounter Details Date Type Department Care Team Description 02/23/2022 Refill Cardiology at [facility] Liz Poole PA [facility] [place] [address] Cardiology Dept [phone] [place], [place] [address] (Wo rk) Social History Tobacco [...] Oneill RPH Transfer of Services Don Fatima [address] [place] [address] [place] [address] Telephone Information: Work Phone Not on file. The [facility] has received a prescription for Entresto for patient Mr. Don Fatima 76 y.o. (1945). The patient requests the prescription to be filled with [facility]. We spoke to patient to notify of this change and to provide number to reach the new filling pharmacy. A copyof patient's medication profile was offered to the accepting pharmacy. Additional instructions provided to patient about transfer: no The patient has been advised to call the [facility] at [phone] with any questionsor concerns on this referral. Thank you, Oxana Oneill RPH 02/23/22 4:26 PM Patient understands no changes to current drug regimen were made at this time. documented in this encounter Plan of Treatment Upcoming Encounters Date Type Specialty Care Team Description 05/28/2022 Appointment Cardiology Zulma Dolan MD [facility] [place], [place] [address] (Wo rk) 05/28/2022 Laboratory Appointment Lab 05/28/2022 Office Visit Cardiology Zulma Dolan MD [facility] [place] [address] Liz Poole PA [facility] [place] [address] 06/10/2022 Office Visit Dermatology Laura Scherer MD [facility] DR TEJA GR-DERMAT [place], [place] [address] (Wo rk) documented as of this encounter Visit Diagnoses Not on filedocumented in this encounter Care Teams Credit Control Administrator Relationship Specialty Start Date End Date Lovely Vicente MD PCP - General 04/16/[address] [place] [address] documented as of this encounter
--- OUTSIDE RECORDS SUMMARY | 2022-04-06 10:35 | XMS_ITS | Encounter Summary ---
:1945 Author Organization [facility] [place] [address] Care Team Providers Name Role Phone Lovely Vicente MD Primary Care Provider Reason for Visit Reason Onset Date Comments Follow-up 02/23/2022 Medication adjustmen t and new med Encounter Details Date Type Department Care Team Description 02/23/2022 Telephone Cardiology at [facility] Martha Comer, Follow-up ([facility] RN adjustbrandon t and new med) [place] [address] Social History Tobacco Use Types Packs/Day [...] the order for BMP and sent to [facility]. will call [facility] to make an appointment [...] tablet) daily. She will correct his pill nurse discharge planner to the new dose. Will need to check with STEPHANIE Poole about repeat BMP to recheck K+ level. If yes he will get the test done at [facility]. They are aware that he will need to make an appt at [facility] to get the test [...] if he qualifies for assistance from the [employer]. She is thankful for the assistance, as he is taking insulin that is very expensive too. Instructed to call this entry writer, if he does qualify for assistance from [employer] and that he has gotten the medication [...] Cardiology Zulma Dolan MD [facility] [place], [place] [address] (Wo rk) 05/28/2022 Laboratory Appointment Lab 05/28/2022 Office Visit Cardiology Zulma Dolan MD [facility] [place] [address] Liz Poole PA [facility] [place] [address] 06/10/2022 Office Visit Dermatology Laura Scherer MD [facility] DR TEJA GR-DERMAT [place], [place] [address] (Wo rk) documented as of this encounter Visit Diagnoses Not on filedocumented in this encounter Care Teams Calculus Teacher Relationship Specialty Start Date End Date Lovely Vicente MD PCP - General 04/16/[address] [place] [address] documented as of this encounter
--- OUTSIDE RECORDS SUMMARY | 2022-04-06 10:35 | XMS_ITS | Encounter Summary ---
:1945 Author Organization [facility] [place] [address] Care Team Providers Name Role Phone Lovely Vicente MD Primary Care Provider Encounter Details Date Type Department Care Team Description 02/24/2022 Notes Only Care Management [place] [address] Social History Tobacco Use Types Packs/Day [...] return to the Medication Assistance Program. The [facility] office will follow up with the patient in 5 business days to see if the patient has received the application and if they have any questions. documented in this encounter Plan of Treatment Upcoming Encounters Date Type Specialty Care Team Description 05/28/2022 Appointment Cardiology Zulma Dolan MD [facility] Dr [place], [place] [address] (Wo rk) 05/28/2022 Laboratory Appointment Lab 05/28/2022 Office Visit Cardiology Zulma Dolan MD [facility] [place] [address] Liz Poole PA [facility] [place] [address] 06/10/2022 Office Visit Dermatology Laura Scherer MD [facility] ER DR TEJA GR-DERMAT [place], [place] 0[address] (Wo rk) documented as of this encounter Visit Diagnoses Not on filedocumented in this encounter Care Teams Plastics Scientist Relationship Specialty Start Date End Date Lovely Vicente MD PCP - General 04/16/[address] [place] [address] documented as of this encounter
--- OUTSIDE RECORDS SUMMARY | 2022-04-06 10:35 | XMS_ITS | Encounter Summary ---
:1945 [place] [address] Care Team Providers Name Role Phone Lovely Vicente MD Primary Care Provider Encounter Details Date Type Department Care Team Description 12/30/2021 Notes Only [facility] [place] [address] Social History Tobacco Use Types Packs/Day [...] Failure team. DX: HFrEF. Referral placed to [facility] documented in this encounter Plan of Treatment Upcoming Encounters Date Type Specialty Care Team Description 05/28/2022 Appointment Cardiology Zulma Dolan MD [facility] Dr [place], [place] [address] (Wo rk) 05/28/2022 Laboratory Appointment Lab 05/28/2022 Office Visit Cardiology Zulma Dolan MD [facility] [place] [address] Liz Poole PA [facility] [place] [address] 06/10/2022 Office Visit Dermatology Laura Scherer MD [facility] ER DR [address]-DERMAT [place], [place] [address] (Wo rk) documented as of this encounter Visit Diagnoses Not on filedocumented in this encounter Care Teams Neurophysiology Tech Relationship Specialty Start Date End Date Lovely Vicente MD PCP - General 04/16/[address] [place] [address] documented as of this encounter
--- OUTSIDE RECORDS SUMMARY | 2022-04-06 10:35 | XMS_ITS | Encounter Summary ---
:1945 Author Organization [facility] [place] [address] Care Team Providers Name Role Phone Lovely Vicente MD Primary Care Provider Reason for Referral Diagnostic Test (Routine) - New Request Specialty Diagnoses / Procedures Referred By Contact Refer red To Contact Cardiology Diagnoses Chronic systolic heart failure Liz Carrera PA [facility] Non-Inv Card Lab Procedures Echocardiogram Transthoracic [facility] [place] [address] [place] [address] Fax: Referral ID Status Reason Start Expiration Visits Visits Date Date Requested Authorized [id number] New Request Specialty 02/19/2022 02/19/2023 1 1 Service Requested Encounter Details Date Type Department Care Team Description 02/19/2022 Office Visit Cardiology at [facility] Liz Carrera, Chronic systolic heart [facility] [place] [address] Cardiology Dept [phone] [place], [place] [address] Social History Tobacco Use Types [...] As per DC Summary - Admitted to [facility] on 12/08/21, transferred from [facility], respiratory distress with hypoxia 86% [...] mg PO daily in place of Lasix. [place] is new for him and he will [...] his PCP. He started [facility] in [facility]. Monitored vitals/trends at home: Weight [...] Antiplatelet (DAPT) Recommendations above ? TTE from [facility] 12/08/21 ?? 07/28/2019 Echocardiogram: SUMMARY: [...] present. 07/07/2019 - 07/21/2019 Zio Patch Manager Event The patient had a minimum heart rate [...] 12.5 mg daily 6. Post-op atrial fibrillation [id number] 7 (CHF, HTN, DM, vascular disease, thromboembolism) Eliquis 7. PAD 08/06/2017: Right 1st, 2nd, 3rd toe amputation 08/11/2017: Left??femoral arterial access, RLE??angiogram, Balloon angioplasty of R PT 10/25/2017: right popliteal-pedal bypass at [facility] 8. Hypothyrodism S/p thyroidectomy for goiter [...] Zulma Dolan MD [facility] [place], [place] [address] (Wo rk) 05/28/2022 Laboratory Appointment Lab 05/28/2022 Office Visit Cardiology Zulma Dolan MD [facility] [place] [address] Liz Carrera PA [facility] [place] [address] 06/10/2022 Office Visit Dermatology Laura Scherer MD [facility] [address] [place] [place] [address] (Wo rk) Scheduled Orders Name Type Priority Associated Order Schedule Diagnoses Echocardiogram Echocardiography Routine Chronic systolic Expec vlad: Transthoracic heart failure 05/22/2022 (Approximate), Expires: 11/21/2022 documented as of this encounter Results (ABNORMAL) Basic Metabolic Panel (non-fasting) (02/19/2022 8:06 AM EDT) P athologist Signature Glucose Lvl 139 65 - 199 [facility] mg/dL [facility] Comment: [...] mmol/L [facility] CO2 31 22 - 31 mmol/L [facility] [...] City/State/ZIP Code Phon e Number [place] [phone] (ABNORMAL) pro-Brain Natriuretic Peptide (02/19/2022 8:06 AM EDT) P athologist Signature ProBNP 984 (H) <=449 pg/mL [facility] Specimen Anatomical Collection Method Collection Time Receive d Time (Source) Location / / Volume Laterality Blood 02/19/2022 8:06 AM 8:09 EDT AM EDT Resulting Agency Comment Spec In Lab Zulma Plunkett MD CHEMISTRY ORDERABLES Performing Organization Address City/[facility]/[place] [address] documented in this encounter Visit Diagnoses Diagnosis Chronic systolic heart failure documented in this encounter Care Teams Office Services Specialist Relationship Specialty Start Date End Date Lovely Vicente MD PCP - General 04/16/[address] [place] [address] documented as of this encounter
--- OUTSIDE RECORDS SUMMARY | 2022-04-06 10:35 | XMS_ITS | Encounter Summary ---
:1945 Author Organization [facility] [place] [address] Care Team Providers Name Role Phone Lovely Vicente MD Primary Care Provider Encounter Details Date Type Department Care Team Description 01/28/2022 Orders Only Real Estate Director Zulma Finch ASCVD (art eriosclerotic [facility] cardiovascular disease) [facility] [place] [address] [place], [place] [phone] (Work) [phone] Social History Tobacco Use Types Packs/Day Years [...] MD [facility] [address] [place] [address] (Wo rk) 05/28/2022 Laboratory Appointment Lab 05/28/2022 Office Visit Cardiology Zulma Dolan MD [facility] [place] [address] Liz Poole PA [facility] [place] [address] 06/10/2022 Office Visit Dermatology Laura Scherer MD [facility] [address] [place], [place] [address] (Wo rk) documented as of this encounter Results (ABNORMAL) Basic Metabolic Panel (non-fasting) (01/30/2022 7:19 AM EDT) athologist Signature Glucose Lvl 237 (H) 65 - 199 [facility] mg/dL [facility] [...] Organization Address City/State/[place] [address] documented in this encounter Visit Diagnoses Diagnosis ASCVD (arteriosclerotic cardiovascular d isease) Unspecified cardiovascular disease documented in this encounter Care Teams Forensic Identification Specialist Relationship Specialty Start Date End Date Lovely Vicente MD PCP - General 04/16/[address] [place] [address] documented as of this encounter
--- OUTSIDE RECORDS SUMMARY | 2022-04-06 10:35 | XMS_ITS | Clinical Summary ---
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; ASHD (arteriosc lerotic heart disease) 01/28/2022 Orders Only Cardiology GERARD GannonVD (arterios clerotic STEPHANIE Maya cardiovascular disease) 01/28/2022 Telephone Cardiology Chitra Angela Advice Only A, RN from Last 3 Months Immunizations Name [...] Dolan MD [facility] [place], [place] [address] (Wo rk) 05/28/2022 Laboratory Appointment Lab 05/28/2022 Office Visit Cardiology Zulma Dolan MD [facility] [place] [address] Liz Poole PA [facility] [place] [address] 06/10/2022 Office Visit Dermatology Laura Scherer MD [facility] [address] [place], [place] [address] (Wo rk) Health Maintenance Due Date Last Done Comments Covid-19 Vaccine (#1) 1950 Pneumoccocal Vaccine: 65+ (1 - PCV) 1952 Hepatitis C Screening 1964 Tdap adult 1965 Tetanus vaccine 1965 Zoster vaccine (1 of 2) 1996 Colonoscopy 01/16/2019 01/16/2014, 01/16/2014 Influenza (Flu) vaccine (1 of 1 - 03/26/2022 03/29/2013, Influenza standard series) Medical Devices Implanted Type Area Hse Specialist Device Shelf Model / Identifier Expiration Serial / Date Lot Cable,Cut,Edg,Blnt,Ss,3tpr ([id number]) - [id number] IMPLANTS Midline: [employer] 04/01/2022 [id number] / Implanted: Qty: 4 on 07/07/2017 by Yuan Retana MD at [facility] [employer] - / [id number] Procedures Procedure Name Priority Date/Time Associated Diagnosis [...] are in cardiovascular the results disease) section. from Last 3 Months Results (ABNORMAL) [...] LAB SCAN DOC: LAB (03/05/2022 12:00 AM EDT) Narrative This result has an attachment that is no t available. Unknown MEDIA MGR SCAN EXT ORDR/RSLT (ABNORMAL) Hemogram (02/19/2022 8:06 AM EDT)Only the most recent of3 results within the time period is included. Analysis Performed At Patho logist Time Signature WBC 7.2 4.0 - 9.5 [facility] x10(3)/[facility] LABORATORY RBC 4.41 (L) 4.58 - [facility] 5.54 [facility] x10(6)/[facility] LABORATORY Hemoglobin 13.2 (L) 13.7 - [facility] 16.5 g/dL [facility] Hematocrit 40.9 40.5 - [facility] 48.5 % [facility] MCV 92.7 82.9 - [facility] 93.1 [facility] LABORATORY MCH 29.9 27.5 - [place] 32.[address] [facility] MCHC 32.3 32.0 - [facility] 35.7 g/dL [facility] Platelets 191 145 - 357 [facility] x10(3)/[facility] LABORATORY RDWSD 53.6 (H) 36.0 - [employer] 45.0 [facility] LABORATORY RDWCV 15.6 (H) 11.4 - [place] 13.8 % [facility] MPV 8.7 7.6 - 12.9 [facility] nRBC % Auto 0.0 % [facility] nRBC Abs Auto 0.000 0.000 - [place] 0.000 [facility] x10(3)/[facility] LABORATORY Specimen Anatomical Collection Method Collection Time Receive d Time (Source) Location / / Volume Laterality Blood 02/19/2022 8:06 AM 2 8:09 EDT AM EDT Resulting Agency Comment Spec In Lab Liz BROWN HEMATOLOGY ORDERABLES Performing Organization Address City/State/[place] [address] (ABNORMAL) Differential, Automated (02/19/2022 8:06 AM EDT)Only the most recent of3 resultswithin the time period is included. [facility] Method Time Signature Neutrophils % 76.0 % [facility] Neutr Abs (ANC) 5.49 1.70 - [facility] 6.10 [facility] x10(3)/[facility] LABORATORY Lymphocytes % 10.8 % [facility] Lymphocytes Abs 0.8 (L) 0.9 - 3.2 [facility] x10(3)/[facility] LABORATORY Monocytes % 10.2 % [facility] Monocyte Abs 0.7 0.3 - 0.9 [facility] x10(3)/[facility] LABORATORY Eosinophils % 1.2 % [facility] Eosinophils Abs 0.1 0.0 - 0.4 [facility] x10(3)/[facility] LABORATORY Basophils % 0.8 % [facility] Basophils Abs 0.1 0.0 - 0.1 [facility] x10(3)/[facility] LABORATORY Immature Gran % 1.00 % [facility] Comment: Immature [...] Address City/State/ZIP Code Phon e Number [address] (ABNORMAL) pro-Brain Natriuretic Peptide (02/19/2022 8:06 AM EDT) athologist Signature ProBNP 984 (H) <=449 pg/mL [facility] Specimen Anatomical Collection Method Collection Time Receive d Time (Source) Location / / Volume Laterality Blood 02/19/2022 8:06 AM 2 8:09 EDT AM EDT Resulting Agency Comment Spec In Lab Zulma Plunkett MD CHEMISTRY ORDERABLES Performing Organization Address City/[facility]/ZIP Code Phon e Number [address] POCT Glucose (01/30/2022 1:41 PM EDT)Only the most recent of4 resultswithin the time period is included. athologist Signature POC Glucose 148 65 - 199 [facility] mg/dL [facility] Comment: Supplemental [...] [facility]/[place] [address] EKG 12 Lead (01/30/2022 10:33 AM EDT) Component Value Ref Range Test Analysis Performed Pathologis t Method Time At Signature Ventricular rate 64 BPM MUSE SYSTEM Atrial Rate 64 BPM MUSE SYSTEM P-R Interval 162 ms MUSE SYSTEM QRS Duration 94 ms MUSE SYSTEM Q-T Interval 422 ms MUSE SYSTEM QTC Calculated 435 ms MUSE SYSTEM (Bezet) Calculated P [place] 41 degrees MUSE SYSTEM Calculated R [place] -27 degrees MUSE SYSTEM Calculated T [place] 104 degrees MUSE SYSTEM INTERPRETATION Normal sinus rhythm MUSE SYSTEM Anterolateral infarct (cited on or before 09-DEC-2021) Abnormal ECG When compared with ECG of 10-DEC-2021 11:17, No significant change was found Confirmed by Gary Perez ([id number]) on 01/30/2022 5:57:5 2 PM Specimen Anatomical [...] Laterality Volume Narrative 01/30/2022 2:09 PM EDT ?[facility] ? Cardiac Cathete rization/Intervention Report ? Patient Name: Kushal, Don E. ? Procedure Date: 01/30/2022 ? A #: [id number] ? Primary Physician: Nobles, Vitaliy P ? Case #: [id number] ? File Name: [id number] ? Catheterization Order Number: [id number] ? [facility] ?[facility] ? Final Report [place], [place] ? Patient Name: ? Dno E. Stewa rt ? ID#: ?[id number] ? : ?1945 ? Procedure Date: ? [...] patient was ?designated as ASA Class III. [facility] clinical frailty scale is 5: Mildly ?Frail. [...] procedure was Urgent. The indication for ?the pit laborer visit is stable kn own CAD. [...] guiding catheter an d a 3.5 Fr [facility] [place] [address] ??20 Mhz ?using Manual pullback. ??Imagin [...] A premounted 2.00 x 26 mm Hardeep [place] (TUCKER) ? was deployed wi th a [...] Wedelivered along 2.0 x 26 mm HARDEEP [place] ? TUCKER stent and p ositioned it at the ostium of the RPDA ? extending into the mid RPDA and deployed it at 12 darshan. We then ? usedthe stentba maria antonia to post-dilate the stent to [...] dose administered prior to arrival in the pit laborer. ?Recommended anti-platelet/anti- thrombotic regimen: ?Continue aspirin [...] require ?modification of this regimen. C onsult [facility] Interventional Cardiology for ?questions. ?The 1 year bleeding risk as nusrat culated by the PRECISE DAPT score is High ?risk. ?High Bleeding Risk - Anticoagul ation and DAPT: ?- ??Assess ischemic and bleedin g risks using validated risk predictors ?(e.g. CHADS2-VASC, HAS-BLED, NC ECISE DAPT, DAPT Score) ?- ??Keep anticoagulant [...] using a 2.0 x 26 mm HARDEEP [place] TUCKER stent. ?This completes the revasculariz ation [...] Procedure Note Vitaliy Nobles MD - 03/06/2022 [facility] Cardiac Catheterization/Intervention Re port Patient Name: Don Fatima Procedure Date: 01/30/2022 A #: [id number] Primary Physician: Vitaliy Nobles Case #: [id number] File Name: [id number] Catheterization Order Number: [id number] [facility] Material Preparation Worker [facility] Final Report [place], [place] Patient Name: Don Fatima [...] e was Urgent. The indication for the pit laborer visit is stable known CAD. Chest pain symptom assessment was: Typical Angina. Technique: A 6 SLFr sheath was inserted in the [facility] radial artery utilizing the Seldinger technique. [...] 1.5 guiding catheter and a 3.5 Fr [facility] [place] [address] 20 Mhz using Manual pullback. Imaging [...] atmospheres. A premounted 2.00 x 26 mm [place] (TUCKER) was deployed with a maximum inflation [...] along 2. 0 x 26 mm HARDEEP [place] TUCKER stent and positioned it at the [...] administered prior t o arrival in the pit laborer. Recommended anti-platelet/anti-thrombot ic regimen: Continue aspirin [...] using a 2.0 x 26 mm HARDEEP [place] TUCKER stent. This completes the revascularization of [...] T ype Group Dates MEDICARE MEDICARE PART [id number] 2011-Prese [phone] [place] [address] [employer] [place] [id number] 2018-Prese [phone] [address] [place] [address] [place] [address] Advance Directives Documents on File Type Date Recorded Patient Reverse Engineer Explanati on Advance Directives and Living [...] capacity to make decision: Yes Care Teams Hse Specialist Relationship Specialty Start Date End Date Lovely Vicente MD PCP - General 04/16/[address] [place] [address]
--- OUTSIDE RECORDS SUMMARY | 2022-04-06 10:35 | XMS_ITS | Encounter Summary ---
:1945 [place] [address] Care Team Providers Name Role Phone Lovely Vicente MD Primary Care Provider Reason for Visit Reason Onset Date Comments Follow-up 02/26/2022 Entresto start Encounter Details Date Type Department Care Team Description 02/26/2022 Telephone Cardiology [place] [facility] Martha Comer, Follow-up ([facility] RN start) [place] [phone] Social History Tobacco Use Types Packs/Day [...] on 03/05/22 Getting labs done at : [facility] Order e-faxed by STEPHANIE Poole on 02/24/22. /pt to call on 03/05/22 letting us know to get the BMP results from [facility]. Nursing to get results and contact pt to see how he is tolerating the Entresto. They are to call sooner with any questions/concerns. documented in this encounter Plan of Treatment Upcoming Encounters Date Type Specialty Care Team Description 05/28/2022 Appointment Cardiology Zulma Dolan MD [facility] [place], [place] [address] (Wo rk) 05/28/2022 Laboratory Appointment Lab 05/28/2022 Office Visit Cardiology Zulma Dolan MD [facility] [place] [address] Liz Poole PA [facility] [place] [address] 06/10/2022 Office Visit Dermatology Laura Scherer MD [facility] [address] [place], [place] [address] (Wo rk) documented as of this encounter Visit Diagnoses Not on filedocumented in this encounter Care Teams Bulk Fluids Handler Relationship Specialty Start Date End Date Lovely Vicente MD PCP - General 04/16/[address] [place] [address] documented as of this encounter
--- OUTSIDE RECORDS SUMMARY | 2022-04-06 10:35 | XMS_ITS | Encounter Summary ---
:1945 Author Organization [facility] Address [facility] [place] [address] Care Team Providers Name Role Phone Lovely Vicente MD Primary Care Provider Reason for Visit Reason Onset Date Comments Medication Refill 03/06/2022 Metoprolol Succinate Encounter Details Date Type Department Care Team Description 03/06/2022 Refill Cardiology at [facility] Liz Poole PA Medication Refill [facility] (Az toprolol Succinate) [place] [address] Cardiology Dept [phone] [place], [place] [address] (Wo rk) Social History [...] MD [facility] [place] [address] (Wo rk) 05/28/2022 Laboratory Appointment Lab 05/28/2022 Office Visit Cardiology Zulma Dolan MD [facility] [place] [address] Liz Poole PA [facility] [place] [address] 06/10/2022 Office Visit Dermatology Laura Scherer MD [facility] ER [address] [place], [place] [address] (Wo rk) documented as of this encounter Visit Diagnoses Diagnosis Chronic systolic heart failure Cardiomyopathy, ischemic Other specified forms of chronic ischemi c heart disease documented in this encounter Care Teams Journeyman Operator Assistant Relationship Specialty Start Date End Date Lovely Vicente MD PCP - General 04/16/[address] [place] [address] documented as of this encounter
--- OUTSIDE RECORDS SUMMARY | 2022-04-06 10:35 | XMS_ITS | Encounter Summary ---
:1945 Author Organization [facility] Address [facility] [place] [address] Care Team Providers Name Role Phone Lovely Vicente MD Primary Care Provider Reason for Visit Auth/Cert Specialty Diagnoses / Procedures Referred By Contact Refer red To Contact Diagnoses ASCVD (arteriosclerotic cardiovascular disease) [I25.10] Vitaliy Nobles MD [facility] Procedures PRO PERC TRLUML CORONARY STENT W/ANGIO ONE ART/BRANCH CARDIAC CATHETERIZATION STENT PLACEMENT-SINGLE MAJOR CORONARY ARTERY OR BRANCH [facility] [place] [address] Referral ID Status Reason Start Date Expiration Date Visits Requ ested Visits Authorized [id number] 1 1 Encounter Details Date Type Department Care Team Description 01/30/2022 Hospital Encounter Short Stay Unit at Vitaliy Nobles, CVD (arteriosclerotic cardiovascular disease); Barbara Blue MD 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 [place] [address] [phone] Social History Tobacco Use Types Packs/Day Years [...] Clopidogrel. Please follow up with your director social welfare in the next 4-6 weeks. We have [...] recent PCI presenting for staged PCI to [facility]. The pt states he has [...] recent PCI presenting for staged PCI to [facility]. The indications, expected benefits, and [...] had referred him to cardiac rehab at [facility] last month per HF team. He was waiting until this intervention before starting the program. Reviewed managing angina /use of sl nitroglycerin. Given parameters for home exercise. 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 We discussed short walks several times per day. Will send [facility] his discharge summary from this admission. The patient should be contacted by the Program within 1- 2 weeks from discharge. Brief Op Note - Vitaliy Nobles MD - 01/30/2022 10:19 AM EDT Images from the original note were not included. [facility] [place] [address] CORONARY ANGIOGRAM AND PERCUTANEOUS CORONARY INTERVENTION REPORT Patient: Don Fatima : 1945 MR number: [id number] Date of Service: 01/30/2022 Oracle Dba: Vitaliy Nobles MD Fellow: KEYON Elizabeth INDICATION: [...] a long 2.0 x 26 mm ORION Euless TUCKER stent and positioned it at the [...] using a 2.0 x 26 mm ORION Euless TUCKER stent. This completes the revascularization ofall [...] Cardiology Zulma Dolan MD [facility] er [place] 0[address] (Wo rk) 05/28/2022 Laboratory Appointment Lab 05/28/2022 Office Visit Cardiology Zulma Dolan MD [facility] [place] [address] [facility] [place] [address] 06/10/2022 Office Visit Dermatology Laura Scherer MD [facility] [address] [facility] [place] [place] [address] (Wo rk) Scheduled Orders Name [...] LABORATORY Neutr Abs (ANC) 3.96 1.70 - [facility] 6.10 [facility] x10(3)/[facility] LABORATORY Lymphocytes % 16.3 % [facility] LABORATORY Lymphocytes Abs 0.9 0.9 - 3.2 [facility] x10(3)/[facility] LABORATORY Monocytes % 10.0 % [facility] LABORATORY Monocyte Abs 0.6 0.3 - 0.9 [facility] x10(3)/[facility] LABORATORY Eosinophils % 0.5 % [facility] LABORATORY Eosinophils Abs 0.0 0.0 - 0.4 [facility] x10(3)/[facility] LABORATORY Basophils % 0.5 % [facility] LABORATORY Basophils Abs 0.0 0.0 - 0.1 [facility] x10(3)/[facility] LABORATORY Immature Gran % 0.90 % [...] Abs 0.05 (H) 0.00 - 0.04 x10(3)/[facility] LABORATORY Specimen Anatomical Collection Method Collection Time Receive d Time (Source) Location / / Volume Laterality Blood 01/30/2022 2:12 PM 2 2:37 EDT PM EDT Resulting Agency Comment Spec In Lab Eddi Elizabeth Jr., MD HEMATOLOGY ORDERABLES Performing Organization Address City/State/[place] [address] (ABNORMAL) Hemogram (01/30/2022 2:12 PM EDT) Analysis Performed At Patho logist Time Signature WBC 5.5 4.0 - 9.5 [facility] x10(3)/[facility] LABORATORY RBC 4.30 (L) 4.58 - [facility] 5.54 [facility] x10(6)/[facility] LABORATORY Hemoglobin 12.7 (L) 13.7 - [facility] 16.[facility] g/dL [facility] LABORATORY Hematocrit 39.4 (L) 40.5 - [facility] 48.5 % [facility] LABORATORY MCV 91.6 82.9 - [facility] 93.1 [facility] LABORATORY MCH 29.5 27.5 - [facility] 32.1 pg [facility] LABORATORY MCHC 32.2 32.0 - [facility] 35.7 g/dL [facility] LABORATORY Platelets 172 145 - 357 [facility] x10(3)/[facility] LABORATORY RDWSD 54.5 (H) 36.0 - [facility] 45.0 [facility] LABORATORY RDWCV 16.4 (H) 11.4 - [facility] 13.8 % [facility] LABORATORY MPV 9.2 7.6 - 12.9 [facility] LABORATORY nRBC % Auto 0.0 % [facility] LABORATORY nRBC Abs Auto 0.000 0.000 - [facility] 0.000 [facility] x10(3)/[facility] LABORATORY Specimen Anatomical Collection Method Collection Time Receive d Time (Source) Location / / Volume Laterality Blood 01/30/2022 2:12 PM 2 2:37 EDT PM EDT Resulting Agency Comment Spec In Lab Eddi Elizabeth Jr., MD HEMATOLOGY ORDERABLES Performing Organization Address City/State/[place] [address] (ABNORMAL) Basic Metabolic Panel (non-fasting) (01/30/2022 2:12 PM EDT) P athologist Signature Glucose Lvl 163 65 - 199 [facility] mg/dL [facility] LABORATORY Comment: Diabetes: >=200 mg/dL plus symp toms BUN 30 (H) 10 - 20 mg/dL [facility] LABORATORY Creatinine 1.47 0.80 - 1.50 mg/dL [facility] OCK [facility] LABORATORY Sodium 140 135 - 145 [...] Organization Address City/State/[place] [address] POCT Glucose (01/30/2022 1:41 PM EDT) athologist Signature POC Glucose 148 65 - 199 [facility] mg/dL [facility] LABORATORY Comment: [...] City/[facility]/ZIP Code Phon e Number [address] POCT Glucose (01/30/2022 10:48 AM EDT) P athologist Signature POC Glucose 193 65 - 199 [facility] mg/dL [facility] LABORATORY Comment: Supplemental ranges: <140 mg/dL before meals <180 mg/dL all other times of the day Specimen Anatomical Collection Method Collection Time Receive d Time (Source) Location / / Volume Laterality Blood 01/30/2022 10:48 01/30/2022 AM EDT 10:48 AM EDT Vitaliy Sandra Nobles MD POINT OF CARE TEST ORDERABLE S Performing Organization Address [facility] [place] [address] EKG 12 Lead (01/30/2022 10:33 AM EDT) Component Value Ref Range Test Analysis Performed Pathologis t Method Time At Signature Ventricular rate 64 BPM MUSE SYSTEM Atrial Rate 64 BPM MUSE SYSTEM P-R Interval 162 ms MUSE SYSTEM QRS Duration 94 ms MUSE SYSTEM Q-T Interval 422 ms MUSE SYSTEM QTC Calculated 435 ms MUSE SYSTEM (Bezet) Calculated P [place] 41 degrees MUSE SYSTEM Calculated R [place] -27 degrees MUSE SYSTEM Calculated T [place] 104 degrees MUSE SYSTEM INTERPRETATION Normal sinus rhythm MUSE SYSTEM Anterolateral infarct (cited on or before 09-DEC-2021) Abnormal ECG When compared with ECG of 10-DEC-2021 11:17, No significant change was found Confirmed by Gary Perez ([id number]) on 01/30/2022 5:57:5 2 PM Specimen Anatomical Collection Method Collection Time Receive d Time (Source) Location / / Volume Laterality 01/30/2022 10:33 01/30/2022 5:57 AM EDT PM EDT Vitaliy Sandra Nobles MD ECG ORDERABLES Performing Organization Address City/[facility]/ZIP Code Phon e Number MUSE SYSTEM CARDIAC CATHETERIZATION (01/30/2022 10:16 AM EDT) Anatomical Region Laterality Modality Other Specimen (Source) Anatomical Location Collection Method / Collectio n Time Received Time / Laterality Volume Narrative 01/30/2022 2:09 PM EDT ?[facility] ? Cardiac Cathete rization/Intervention Report ? Patient Name: Kushal, Don E. ? Procedure Date: 01/30/2022 ? A #: [id number] ? Primary Physician: Nobles, Vitaliy P ? Case #: [id number] ? File Name: [id number] ? Catheterization Order Number: [id number] ? [facility] ? Final Report [place], [place] ? Patient Name: ? Don E. Stewa rt ? ID#: ?[id number] ? : ?1945 ? Procedure Date: ? [...] was Urgent. The indication for ?the cardiac catheterization technician visit is stable kn own CAD. [...] guiding catheter an d a 3.5 Fr [address] [facility] [address] ??20 Mhz ?using Manual pullback. ??Imagin [...] ?? A premounted 2.00 x 26 mm [place] Euless (TUCKER) ? was deployed wi a maximum [...] Wedelivered along 2.0 x 26 mm ORION Euless ? TUCKER stent and p ositioned it [...] administered prior to arrival in the cardiac catheterization technician. ?Recommended anti-platelet/anti- thrombotic regimen: ?Continue aspirin [...] may require ?modification of this regimen. C [facility] Interventional Cardiology for ?questions. ?The 1 [...] using a 2.0 x 26 mm ORION Euless TUCKER stent. ?This completes the revasculariz ation [...] Procedure Note Vitaliy Nobles MD - 03/06/2022 [facility] Cardiac Catheterization/Intervention Re port Patient Name: Don Fatima Procedure Date: 01/30/2022 A #: [id number] Primary Physician: Vitaliy Nobles Case #: [id number] File Name: [id number] Catheterization Order Number: [id number] [facility] Final Report [place], [place] Patient Name: Don Fatima ID#: [...] was Urgent. The indication for the cardiac catheterization technician visit is stable known CAD. Chest [...] 1.5 guiding catheter and a 3.5 Fr [address] [facility] [address] 20 Mhz using Manual pullback. Imaging [...] atmospheres. A premounted 2.00 x 26 mm [place] Euless (TUCKER) was deployed with a maximum inflation [...] along 2. 0 x 26 mm ORION Euless TUCKER stent and positioned it at the [...] administered prior t o arrival in the cardiac catheterization technician. Recommended anti-platelet/anti-thrombot ic regimen: Continue aspirin [...] of this regimen. Consult D [facility] Interventional Cardiology for questions. The [...] using a 2.0 x 26 mm ORION Euless TUCKER stent. This completes the revascularization of [...] 212 (H) 65 - [address] [facility] mg/dL [facility] LABORATORY Comment: Supplemental ranges: <140 mg/dL before meals <180 mg/dL all other times of the day Specimen Anatomical Collection Method Collection Time Receive d Time (Source) Location / / Volume Laterality Blood 01/30/2022 9:04 AM 2 9:04 EDT AM EDT Vitaliy Nobles MD POINT OF CARE TEST ORDERABLE S Performing Organization Address City/State/[place] [address] (ABNORMAL) POCT Glucose (01/30/2022 8:10 AM EDT) athologist Signature POC Glucose 224 (H) 65 - [address] [facility] mg/dL [facility] LABORATORY Comment: Supplemental ranges: <140 mg/dL before meals <180 mg/dL all other times of the day Specimen Anatomical Collection Method Collection Time Receive d Time (Source) Location / / Volume Laterality Blood 01/30/2022 8:10 AM 2 8:10 EDT AM EDT Vitaliy Nobles MD POINT OF CARE TEST ORDERABLE S Performing Organization Address City/State/[place] [address] documented in this encounter Visit Diagnoses Diagnosis ASCVD (arteriosclerotic cardiovascular d isease) Unspecified cardiovascular disease 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 ASHD (arteriosclerotic heart disease) Coronary atherosclerosis of unspecified type of vessel, siletz tribe or graft ASCVD (arteriosclerotic cardiovascular d isease) Unspecified cardiovascular disease documented in this encounter Admitting Diagnoses Diagnosis CAD (coronary artery disease) Coronary atherosclerosis of unspecified type of vessel, siletz tribe or graft documented in this encounter Administered [...] Procedure), Routine niCARdipine (Cardene) (100 mcg/mL) dilution (BRIAR WOOD SORTER) (CANCELED ) 0927 (Given - Provider: Vitaliy [...] (Intra-Procedure) documented in this encounter Care Teams Residential Housekeeper Relationship Specialty Start Date End Date Lovely Vicente MD PCP - General 04/16/[address] [place] [address] documented as of this encounter
--- OUTSIDE RECORDS SUMMARY | 2022-04-06 10:35 | XMS_ITS | Encounter Summary ---
:1945 Author Organization [facility] [place] [address] Care Team Providers Name Role Phone Lovely Vicente MD Primary Care Provider Encounter Details Date Type Department Care Team Description 12/24/2021 Telephone Public Health at [facility] [place] [address] Social History Tobacco Use Types Packs/Day [...] Dolan MD [facility] [address] [place], [place] [address] (Wo rk) 05/28/2022 Laboratory Appointment Lab 05/28/2022 Office Visit Cardiology Zulma Dolan MD [facility] [place] [address] Liz Poole PA [facility] [place] [address] 06/10/2022 Office Visit Dermatology Laura Scherer MD [facility] ER DR [address]MAT [place], [place] [address] (Wo rk) documented as of this encounter Visit Diagnoses Not on filedocumented in this encounter Care Teams Boom Crane Operator Relationship Specialty Start Date End Date Lovely Vicente MD PCP - General 04/16/[address] [place] [address] documented as of this encounter
--- OUTSIDE RECORDS SUMMARY | 2022-04-06 10:35 | XMS_ITS | Encounter Summary ---
:1945 [place] [address] Care Team Providers Name Role Phone Lovely Vicente MD Primary Care Provider Encounter Details Date Type Department Care Team Description 12/25/2021 Office Visit Cardiology at [facility] Liz Poole, Chronic systolic heart [facility] [place] [address] Cardiology Dept [phone] [place], [place] [address] Social History Tobacco Use Types [...] As per DC Summary - Admitted to [facility] on 12/08/21, transferred from [facility], respiratory distress with hypoxia 86% on RA. [...] mg PO daily in place of Lasix. [place] is new for him and he will [...] Antiplatelet (DAPT) Recommendations above ? TTE from [facility] 12/08/21 ?? 07/28/2019 Echocardiogram: SUMMARY: 1. The [...] regurgitation present. 07/07/2019 - 07/21/2019 Zio Patch Respiratory Supervisor The patient had a minimum heart [...] hyperkalemia 4.9 today 6. Post-op atrial fibrillation [id number] (CHF, HTN, DM, vascular disease, thromboembolism) Eliquis 7. PAD 08/06/2017: Right 1st, 2nd, 3rd toe amputation 08/11/2017: Left??femoral arterial access, RLE??angiogram, Balloon angioplasty of R PT 10/25/2017: right popliteal-pedal bypass at [facility] 8. Hypothyrodism S/p thyroidectomy for goiter Levothyroxine ?? Plan: 1 month follow up with labs Liz Poole PA-C 12/25/2021 documented in this encounter Plan of Treatment Upcoming Encounters Date Type Specialty Care Team Description 05/28/2022 Appointment Cardiology Zulma Dolan MD [facility] [address] [place], [place] 0[address] (Wo rk) 05/28/2022 Laboratory Appointment Lab 05/28/2022 Office Visit Cardiology Zulma Dolan MD [facility] [place] [address] Liz Poole PA [facility] [place] [address] 06/10/2022 Office Visit Dermatology Laura Scherer MD [facility] ER DR [address]-DERMAT [place], [place] 0[address] (Mikayla alcaraz) documented as of this encounter Results (ABNORMAL) pro-Brain Natriuretic Peptide (12/25/2021 7:46 AM EDT) athologist Signature ProBNP 1,380 (H) <=124 [facility] pg/mL [facility] LABORATORY Specimen Anatomical Collection Method Collection Time Receive d Time (Source) Location / / Volume Laterality Blood 12/25/2021 7:46 AM 8:01 EDT AM EDT Resulting Agency Comment Spec In Lab Zulma Plunkett MD CHEMISTRY ORDERABLES Performing Organization Address City/State/Z[place] [address] (ABNORMAL) Basic Metabolic Panel (non-fasting) (12/25/2021 7:46 AM EDT) athologist Signature Glucose Lvl 272 (H) 65 - 199 [facility] mg/dL [facility] LABORATORY Comment: Diabetes: >=200 mg/dL plus symp toms BUN 62 (H) 10 - 20 mg/dL [facility] LABORATORY Creatinine 1.81 (H) 0.80 - 1.50 mg/dL [facility] LABORATORY Sodium 134 (L) 135 - 145 mmol/L [facility] LABORATORY Potassium 4.9 3.5 - 5.0 mmol/L [facility] LABORATORY Calcium 9.4 8.5 - 10.5 mg/dL [facility] LABORATORY Estimated GFR 36 (L) >=60 [...] Address City/State/[place] [address] documented in this encounter Visit Diagnoses Diagnosis Chronic systolic heart failure documented in this encounter Care Teams Card Boxer Relationship Specialty Start Date End Date Lovely Vicente MD PCP - General 04/16/[address] [place] [address] documented as of this encounter
--- OUTSIDE RECORDS SUMMARY | 2022-04-06 10:35 | XMS_ITS | Encounter Summary ---
:1945 Author Organization [facility] [place] [address] Care Team Providers Name Role Phone Lovely Vicente MD Primary Care Provider Encounter Details Date Type Department Care Team Description 12/12/2021 Telephone Cardiology at [facility] [place] [address] Social History Tobacco Use Types Packs/Day [...] - 12/12/2021 11:36 AM EDT RTC to [employer] regarding pharmacists questions as to whether the Torsemide can be dispensed as 2, 20 mg, tablets, as they have to order Torsemide 40 mg tablets. Pended prescription in refill request. Barbara Mera (Jodie), VAMSI, BSN [facility] documented in this encounter Plan of Treatment Upcoming Encounters Date Type Specialty Care Team Description 05/28/2022 Appointment Cardiology Zulma Dolan MD [facility] [address] [place] 0[address] (Wo rk) 05/28/2022 Laboratory Appointment Lab 05/28/2022 Office Visit Cardiology Zulma Dolan MD [facility] [place] [address] Liz Poole PA [facility] [place] [address] 06/10/2022 Office Visit Dermatology Laura Scherer MD [facility] DR [address] [place], [place] 0[address] (Wo rk) documented as of this encounter Visit Diagnoses Not on filedocumented in this encounter Care Teams Core Mounter Relationship Specialty Start Date End Date Lovely Vicente MD PCP - General 04/16/[address] [place] [address] documented as of this encounter
--- OUTSIDE RECORDS SUMMARY | 2022-04-06 10:35 | XMS_ITS | Encounter Summary ---
:1945 [place] [address] Care Team Providers Name Role Phone Lovely Vicente MD Primary Care Provider Reason for Visit Reason Onset Date Comments Follow-up 03/06/2022 Dave Bueno Encounter Details Date Type Department Care Team Description 03/06/[address] [facility] Martha Comer, Follow-up ([facility] VAMSI Start) [place] [address] Social History Tobacco Use Types Packs/Day [...] pt had gotten his labs done at [facility] yesterday. Results received, scanned and entered [...] Dolan MD [facility] Dr [place], [place] [address] (Wo rk) 05/28/2022 Laboratory Appointment Lab 05/28/2022 Office Visit Cardiology Zulma Dolan MD [facility] [place] [address] Liz Poole PA [facility] [place] [address] 06/10/2022 Office Visit Dermatology Laura Scherer MD [facility] DR [address]-DERMAT [place], [place] 0[address] (Wo rk) documented [...] filedocumented in this encounter Care Teams Emergency Nurse Relationship Specialty Start Date End Date Lovely Vicente MD PCP - General 04/16/[address] [place] [address] documented as of this encounter
--- OUTSIDE RECORDS SUMMARY | 2022-04-06 10:35 | XMS_ITS | Encounter Summary ---
:1945 Author Organization [facility] [place] [address] Care Team Providers Name Role Phone Lovely Vicente MD Primary Care Provider Encounter Details Date Type Department Care Team Description 02/24/2022 Orders Only Cardiology at [facility] Liz Poole, Chronic systolic heart [facility] [place] [address] Cardiology Dept [place], [place] 0[address] Social History Tobacco Use Types [...] Zulma Dolan MD [facility] er [place], [place] [address] (Wo rk) 05/28/2022 Laboratory Appointment Lab 05/28/2022 Office Visit Cardiology Zulma Dolan MD [facility] [place] [address] Liz Poole PA [facility] [place] [address] 06/10/2022 Office Visit Dermatology Laura Scherer MD [facility] ER DR [address] GR-DERMAT [place], [place] 0[address] (Wo rk) documented as of this encounter Visit Diagnoses Diagnosis Chronic systolic heart failure documented in this encounter Care Teams Waste Disposal Plant Operator Relationship Specialty Start Date End Date Lovely Vicente MD PCP - General 04/16/[address] [place] [address] documented as of this encounter
--- OUTSIDE RECORDS SUMMARY | 2022-04-06 10:35 | XMS_ITS | Encounter Summary ---
:1945 Author Organization [facility] [place] [address] Care Team Providers Name Role Phone Lovely Vicente MD Primary Care Provider Encounter Details Date Type Department Care Team Description 12/24/2021 Orders Only Sales Development Representative Zulma Finch ASCVD (art eriosclerotic [facility] cardiovascular disease) [facility] [place] [address] [place], [place] [phone] (Work) [phone] Social History Tobacco Use Types Packs/Day Years [...] [facility] [address] [place] [address] (Wo rk) 05/28/2022 Laboratory Appointment Lab 05/28/2022 Office Visit Cardiology Zulma Dolan [place] [address] Liz Poole PA [facility] [place] [address] 06/10/2022 Office Visit Dermatology Laura Scherer MD [facility] DR [address] [place], [place] 0[address] (Wo rk) documented as of this encounter Visit Diagnoses Diagnosis ASCVD (arteriosclerotic cardiovascular d isease) Unspecified cardiovascular disease documented in this encounter Care Teams Sugarcane Planter Relationship Specialty Start Date End Date Lovely Vicente MD PCP - General 04/16/[address] [place] [address] documented as of this encounter
--- OUTSIDE RECORDS SUMMARY | 2022-04-06 10:35 | XMS_ITS | Encounter Summary ---
:1945 Author Organization [facility] [place] [address] Care Team Providers Name Role Phone Lovely Vicente MD Primary Care Provider Reason for Visit Reason Onset Date Comments Medication Refill 03/11/2022 Encounter Details Date Type Department Care Team Description 03/06/2022 Refill Cardiology at [facility] Liz Poole PA Medication Refill [facility] Jorge mcnamara [facility] [place] [address] Cardiology Dept [phone] [place], [place] [address] (Wo rk) Social History Tobacco [...] [facility] [place] [address] (Wo rk) 05/28/2022 Laboratory Appointment Lab 05/28/2022 Office Visit Cardiology Zulma Dolan MD [facility] [place] [address] Liz Poole PA [facility] [place] [address] 06/10/2022 Office Visit Dermatology Laura Scherer MD [facility] ER DR [address] [place], [place] [address] (Wo rk) documented as of this encounter Visit Diagnoses Not on filedocumented in this encounter Care Teams Field Crop Farm Worker Relationship Specialty Start Date End Date Lovely Vicente MD PCP - General 04/16/[address] [place] [address] documented as of this encounter
--- OUTSIDE RECORDS SUMMARY | 2022-04-06 10:35 | XMS_ITS | Encounter Summary ---
:1945 Author Organization [facility] [place] [address] Care Team Providers Name Role Phone Lovely Vicente MD Primary Care Provider Encounter Details Date Type Department Care Team Description 12/25/2021 Laboratory Appointment Lab 3L [facility] [place] [id number] Social History Tobacco Use Types Packs/Day Years [...] MD [facility] [place] [address] (Wo rk) 05/28/2022 Laboratory Appointment Lab 05/28/2022 Office Visit Cardiology Zulma Dolan MD [facility] [place] [address] Liz Poole PA [facility] [place] [address] 06/10/2022 Office Visit Dermatology Laura Scherer MD [facility] [address] [place] [address] (Wo rk) documented as of this encounter [...] (ABNORMAL) Differential, Automated (12/25/2021 7:46 AM EDT) [facility] gist Method Time Signature Neutrophils % 82.6 % [facility] LABOR[facility]ORY Neutr Abs (ANC) 9.37 (H) 1.70 - [facility] 6.10 [facility] x10(3)/[facility] LABORATORY Lymphocytes % 7.1 % [facility] Lymphocytes Abs 0.8 (L) 0.9 - 3.2 [facility] x10(3)/[facility] LABORATORY Monocytes % 8.8 % [facility] Monocyte Abs 1.0 (H) 0.3 - 0.9 [facility] x10(3)/[facility] LABORATORY Eosinophils % 0.4 % [facility] Eosinophils Abs 0.0 0.0 - 0.4 [facility] x10(3)/[facility] LABORATORY Basophils % 0.4 % [facility] Basophils Abs 0.0 0.0 - 0.1 [facility] x10(3)/[facility] LABORATORY Immature Gran % 0.70 % [...] City/State/ZIP Code Phon e Number [place] [phone] (ABNORMAL) Hemogram (12/25/2021 7:46 AM EDT) Analysis Performed At Patho logist Time Signature WBC 11.4 (H) 4.0 - 9.5 [facility] x10(3)/[facility] LABORATORY RBC 4.23 (L) 4.58 - [facility] 5.54 [facility] x10(6)/[facility] LABORATORY Hemoglobin 12.3 (L) 13.7 - [facility] 16.5 g/dL [facility] Hematocrit 37.7 (L) 40.5 - [facility] RYAN 48.5 % [facility] MCV 89.1 82.9 - [facility] RYAN 93.1 [facility] LABORATORY MCH 29.1 27.5 - [place] RYAN 32.[address] [facility] MCHC 32.6 32.0 - [facility] 35.7 g/dL [facility] Platelets 215 145 - 357 [facility] x10(3)/[facility] LABORATORY RDWSD 49.8 (H) 36.0 - [place] RYAN 45.0 [facility] RDWCV 15.2 (H) 11.4 - [facility] RYAN 13.8 % [facility] LAB[facility] MPV 9.2 7.6 - 12.9 [facility] LABORATORY nRBC % Auto 0.0 % [facility] nRBC Abs Auto 0.000 0.000 - [facility] 0.000 [facility] x10(3)/[facility] LABORATORY Specimen Anatomical Collection Method Collection Time Receive d Time (Source) Location / / Volume Laterality Blood 12/25/2021 7:46 AM 8:01 EDT AM EDT Resulting Agency Comment Spec In Lab Liz BROWN HEMATOLOGY ORDERABLES Performing Organization Address City/State/[place] [address] (ABNORMAL) Basic Metabolic Panel (non-fasting) (12/25/2021 7:46 AM EDT) P athologist Signature Glucose Lvl 272 (H) 65 - 199 [facility] mg/dL [facility] Comment: Diabetes: >=200 mg/dL plus [...] 95 (L) 98 - 107 mmol/L [facility] CO2 28 22 - 31 mmol/L [facility] Anion Gap 11 5 - 15 mmol/L [facility] LABOR[facility]ORY Calcium 9.4 8.5 - 10.5 mg/dL [facility] Estimated GFR 36 (L) >=60 mL/min/1.73 m?? [facility] [address] (ABNORMAL) pro-Brain Natriuretic Peptide (12/25/2021 7:46 AM EDT) P athologist Signature ProBNP 1,380 (H) <=124 [facility] pg/mL [facility] Specimen Anatomical Collection Method Collection Time Receive d Time (Source) Location / / Volume Laterality Blood 12/25/2021 7:46 AM 2 8:01 EDT AM EDT Resulting Agency Comment Spec In Lab Zulma Plunkett MD CHEMISTRY ORDERABLES Performing Organization Address City/[facility]/ZIP [facility] [place] [address] documented in this encounter Visit Diagnoses Diagnosis Chronic systolic heart failure documented in this encounter Care Teams Datawarehouse Developer Relationship Specialty Start Date End Date Lovely Vicente MD PCP - General 04/16/[address] [place] [address] documented as of this encounter
--- OUTSIDE RECORDS SUMMARY | 2022-04-06 10:35 | XMS_ITS | Encounter Summary ---
:1945 Author Organization [facility] Address [facility] [place] [address] Care Team Providers Name Role Phone Lovely Vicente MD Primary Care Provider Reason for Visit Reason Comments Prior Authorization Entresto 24-26mg tablets Encounter Details Date Type Department Care Team Description 02/20/2022 Specialty Pharmacy Pharmacy at [facility] Lamberto Smith Prior Authorization [facility] J (Entresto 24-26mg Drive tablets) [place] [id number] Social History Tobacco Use Types Packs/Day Years [...] Don Fatima Patient : 1945 Patient Address: [address] [place] [address] [place] [address] (home) Medication Name: ENTRESTO 24 MG-26 MG TABLET Medication ID: [id number] Patient Location: [facility] CARDIOLOGY 4A Patient Location Comment: Medication Strength Frequency Requested: Entresto 24-26mg tablets / One tablet twice daily Qty/Day Supply: New Start: New to Therapy Diagnosis & ICD-10 Code: Chronic systolic heart failure, I50.22 Subscriber Insurance: [employer] [facility] Subscriber Insurance Comment: Fax: Physician: LIZ CARRERA Physician Comment : PA Status: NO PA REQUIRED Insurance mandated Pharmacy: Unknown Fillable at [facility]: Yes Insurance requirements/notes: None Copay: $119.01 (goes to coverage gap/odalys monteiro) Copay assistance: [employer] Copay assistance comment: If cost isn't affordable, then we'll suggest enrollment in the currently open [facility] Heart Failure zoila, which provides up to $1000 in copay assistance. If zoila closes, or doesn't work out, then the patient can attempt enrollment in the designer assistance program, the [employer] Patient [employer] (NPAF). At which point we'd refer to [facility] for assistance with enrollment. [...] MD [facility] [address] [place], [place] [address] (Wo rk) 05/28/2022 Laboratory Appointment Lab 05/28/2022 Office Visit Cardiology Zulma Dolan MD [facility] [place] [address] Liz Carrera PA [facility] [place] [address] 06/10/2022 Office Visit Dermatology Laura Scherer MD [facility] ER DR [address] [place], [place] [address] (Wo rk) documented as of this encounter Visit Diagnoses Not on filedocumented in this encounter Care Teams Door Opener Relationship Specialty Start Date End Date Lovely Vicente MD PCP - General 04/16/[address] [place] [address] documented as of this encounter
--- OUTSIDE RECORDS SUMMARY | 2022-04-06 10:36 | XMS_ITS | Encounter Summary ---
:1945 Author Organization [facility] [place] [address] Care Team Providers Name Role Phone Lovely Vicente MD Primary Care Provider Reason for Referral Consultation (Routine) - Closed Specialty Diagnoses / Referred By Contact Referred To Contact Procedures Cardiac Rehabilitation Diagnoses Acute HFrEF (heart failure with reduced ejection fraction) Janneth Padilla, Cardiac Rehab, [address] [place] CARDIOLOGY DEPT. [address] [place] [address] Referral ID Status Reason Start Date Expiration Date Visits V isits Requested Authorized [id number] Closed Consult, 12/12/2021 12/12/2022 36 36 Test & Treat Reason for Visit Auth/Cert Specialty Diagnoses / Procedures Referred By Contact Refer red To Contact Diagnoses NSTEMI Procedures emerg ipi Referral ID Status Reason Start Date Expiration Date Visits Requ ested Visits Authorized [id number] 1 1 Encounter Details Date Type Department Care Team Description 12/08/2021 - Hospital Encounter Intermediate Cardiac Iker Cuevas MD [facility] [place] [address] Non-ST elevation myocardial infarction ( NSTEMI); 12/12/2021 Care Unit Ifeanyi Rene MD [facility] [place] [address] ST elevation myocardial infarction (STEM I), unspecified artery; [facility] Acute HFr EF (heart failure with reduced ejection fraction) [place] [address] Social History Tobacco Use Types Packs/Day Years [...] Peter PA-C Kelly LaFlamme PA-C Cardiovascular Medicine [phone] Discharge Diagnoses (Hospital Problems) and Secondary Diagnoses [...] 3.75 guiding catheter and a 3.5 Fr [facility] [place] 20 Mhz using Manual pullback. Imaging was successful. Image quality was good. The ostial LCX showed moderate diffuse atherosclerotic plaque with scattered three quadrant calcification. Measurements were performed after pre-dilation. Post Intervention: The stent was well expanded and apposed. Intravascular Ultrasound was performed in the distal LM using a 7 Fr EBU 3.75 guiding catheter and a 3.5 Fr [facility] [place] 20 Mhz using Manual pullback. Imaging was [...] may require modification of this regimen. Consult [facility] [place]ventional [...] vascular congestion and cardiomegaly. ?? TTE from [facility] 12/08/21 ? Prior Cardiac Studies: TTE [...] prior thyroidectomy in 2012 who presented to [facility] with 1 week progressing breathlessness with [...] 03/2021 with Liz Poole PA-C. ?? At [facility], respiratory distress with hypoxia 86% [...] mg PO daily in place of lasix. [place] is new for him and he will [...] to be ~$24/mo; affordable per patient. Post [facility] he was started on Eliquis. He [...] appointments: During 8am-5pm Wednesday through Wednesday call [phone] to speak with a nurse in the cardiology clinic All other times call [phone] and ask to speak to the automation and controls supervisor section maintainer. Return to work: One week Driving: No driving for 48 hours after catheterization. Follow up Appointments: PCP Lovely Vicente MD [phone] to see patient at the end of December for annual check up. Patient to see Dr. Lorenzana at 1120 am at December 19 for a post hospital check up. Nonprofit Director Dr. De Oliveira to see you in [facility]. Left a message for office to set a date and time. Please call [phone] Nobles to see the patient for a same day cath in 2-3 weeks from now. Office to call with a date and time. For questions please call [phone] Home oxygen therapy: N/A Arrangements for VNA/home care: none Future Appointments and Orders Future Orders Complete By Expires Basic Metabolic Panel (non-fasting) [LAB15 Custom] 12/19/2021 (Approximate) 12/12/2022 Process Instructions: INCLUDES: Calcium, BUN, Creat, GFR, Glucose, Lytes Scheduling Instructions: Comments: Questions: Referral to Cardiac Rehab [EKM101 Custom] As directed Process Instructions: If no [...] appointments: During 8am-5pm Wednesday through Wednesday call [phone] to speak with a nurse in the cardiology clinic All other times call [phone] and ask to speak to the automation and controls supervisor section maintainer. Return to work: One week Driving: No driving for 48 hours after catheterization. Follow up Appointments: PCP Lovely Vicente MD [phone] to see patient at the end of December for annual check up. Patient to see Dr. Lorenzana at 1120 am at December 19 for a post hospital check up. Nonprofit Director Dr. De Oliveira to see you in [facility]. Left a message for office to set a date and time. Please call [phone] Nobles to see the patient for a same day cath in 2-3 weeks from now. Office to call with a date and time. For questions please call [phone] Home oxygen therapy: N/A Arrangements for VNA/home [...] Progress Note Patient Name: Don Fatima Service: TECHNOLOGY SALES SPECIALIST / PA Responsible Attending: Ifeanyi Truong [...] TROPONINT 1.13* 0.92* 0.89* Pertinent Radiographic/Diagnostic Results: R/[facility] 12/10/21 Hemodynamics: Right Heart Pressures Resting: [...] pulmonary vascular congestion and cardiomegaly. TTE from [facility] 12/08/21 Prior Cardiac Studies: TTE 07/28/2019 [...] with MD Janneth Neville PA 12/12/2021 Pager [phone] Associated attestation - Ifeanyi Truong MD - [...] ratio for each meal) Desirae Jett APRN [facility] [place] Endocrinology Diabetes Management Pager [phone] 20 minutes of this 35 minute visit [...] Progress Note Patient Name: Don Fatima Service: TECHNOLOGY SALES SPECIALIST / PA Responsible Attending: Iker Cuevas [...] TROPONINT 1.13* 0.92* 0.89* Pertinent Radiographic/Diagnostic Results: R/[facility] 12/10/21 Hemodynamics: Right Heart Pressures Resting: [...] pulmonary vascular congestion and cardiomegaly. TTE from [facility] 12/08/21 Prior Cardiac Studies: TTE 07/28/2019 [...] and answered his questions. Iker Cuevas MD [facility] Total time spent on review of records prior to visit, face to face time with patient during visit, documentation, and coordination of care with other clinicians: 25 minutes. . Iker Cuevas MD - 12/10/2021 12:30 PM EDT Images from the original note were not included. Inpatient Cardiology Progress Note Patient Name: Don Fatima Service: TECHNOLOGY SALES SPECIALIST / PA Responsible Attending: Iker Cuevas [...] ??? heparin (porcine) infusion 1,600 Units/hr (12/09/21 4307) PRN Meds:ipratropium-albuteroL, senna-docusate, bisacodyL, sodium chloride 0.9 [...] TROPONINT 1.13* 0.92* 0.89* Pertinent Radiographic/Diagnostic Results: /[facility] 12/10/21 Hemodynamics: Right Heart Pressures Resting: [...] pulmonary vascular congestion and cardiomegaly. TTE from [facility] 12/08/21 Prior Cardiac Studies: TTE 07/28/2019 [...] Discussed with MD Migdalia Peter PA-C Pager #[phone] 12/10/2021 Cardiology Attending Note I have seen [...] updated and given pictures. Iker Cuevas MD [facility] Total time spent on review of records prior to visit, face to face time with patient during visit, documentation, and coordination of care with other clinicians: 35 minutes. Iker Cuevas MD - 12/09/2021 7:28 AM EDT Images from the original note were not included. Inpatient Cardiology Progress Note Patient Name: Don Fatima Service: TECHNOLOGY SALES SPECIALIST / PA Responsible Attending: Iker Cuevas [...] ??? heparin (porcine) infusion 1,600 Units/hr (12/09/21 2569) PRN Meds:ipratropium-albuteroL, sodium chloride 0.9 % (flush), [...] pulmonary vascular congestion and cardiomegaly. TTE from [facility] 12/08/21 Prior Cardiac Studies: TTE 07/28/2019 [...] Discussed with MD Migdalia Peter PA-C Pager #[phone] 12/09/2021 Cardiology Attending Note I have seen and examined the patient. I agree with the findings above. Developed CHF early this am despite getting more iv lasix last evening. Feeling better now. INR > 2. Lungs still wet at base. Echo at [facility] showed EF 35% with mild mod MR slightly lower than last value here. -vit K 2.5 orally to facilitate correction of INR- this will take 12-24 hours to take effect -furosemide 80 mg iv now -postpone right and left heart cath until tomorrow given INR and ADHF -increase statin to achieve LDL < 70 -CPAP tonight Iker Cuevas MD [facility] Total time spent on review [...] prior thyroidectomy in 2012 who presented to [facility] with 1 week progressing breathlessness with [...] visit 03/2021 with Liz Poole PA-C. At [facility], respiratory distress with hypoxia 86% [...] by Manny Mcknight MD at [facility] OR ??? PRO AMPUTATION FOOT, TRANSMETATARSAL Right 08/09/2017 AMPUTATION, TRANSMETATARSAL (WRVU 12.71) performed by Yonathan Smith MD at [facility] OR ??? PRO CABG, ARTERIAL, SINGLE N/A 07/07/2017 @CABG, USING ARTERIAL GRAFT;SINGLE ARTERIAL GRAFT (WRVU 33.75) performed by Yuan Retana MD at [facility] OR ??? PRO CABG, ARTERY-VEIN, TWO N/A 07/07/2017 @CABG, TWO VENOUS GRAFTS & ARTERIAL GRAFT (WRVU 7.93) performed by Yuan Retana MD at [facility] OR ??? PRO COLONOSCOPY, REMV LESN, SNARE 01/16/2014 COLONOSCOPY, POLYPECTOMY, REMOVAL LESION BY SNARE performed by Nohemi Jaimes MD at [facility] ENDOSCOPY ??? PRO DRESSING CHANGE UNDER ANESTHESIA Right 08/11/2017 (MSURG) DRESSING CHANGE (FOR OTHER THAN IVAN) UNDER ANES. (WRVU 0.86) performed by Lamar Smith MD at [facility] OR ??? PRO ENDOSCOPY W/VIDEO-ASST VEIN HARVEST, CABG Right 07/07/2017 ENDOSCOPIC HARVEST VEIN(S) FOR CABG (WRVU 0.31) performed by Yuan Retana MD at [facility] OR ??? PRO THYROIDECTOMY 03/28/2013 THYROIDECTOMY, TOTAL OR COMPLETE performed by Manny Mcknight MD at [facility] MAIN OR Significant Family [...] (H) 65 - 199 mg/dL Labs at [facility] 12/08/2021-troponin I 8004 (UN L <60), [...] Monitor for ADRs. Trend troponins. Admission EKG. [facility] 12/09; consented. TTE. Telemetry monitoring, daily [...] code #Diet-carb control; n.p.o. after midnight for [facility] #DVT prophy- heparin infusion #GI prophy- PPI Discussed with MD Morgan Peter PA-C APP2 pager [phone] 12/08/2021 Cardiology Attending Note I have seen [...] know patient is here. Iker Cuevas MD [facility] documented in this encounter Miscellaneous [...] Type: *No Product type* / Secondary Insurance: [employer] [place] Prescription Coverage: Yes This plan was [...] cath without complications. Migdalia Parker PA-C Pager #[phone] 12/10/2021 Initial Assessments - Nick Georges RN [...] COVID test: Lab Results Component Value Date [id number] Not Detected 12/08/2021 Past medical History: Past [...] spouse would be surrogate decision maker per [place] surrogate decision making law. (Only good for 180 days) Any patient receiving care at [facility] must abide by [place]. The hierarchy for surrogate decision making [...] (i) The agent with financial power of generator technician or a conservator appointed in accordance [...] standard, cane - straight Home Address: [address] [place] [address] [place] [address] Social & Family Supports: All names listed below confirmed with patient as current and correct Extended Emergency Contact Information Primary Emergency Contact: Kisha Fatima Address: [address] [place] [address] [place] [address] [facility] Mobile Relation: Spouse Secondary Emergency Contact: Elba Swenson Address: [address] Mobile Relation: Child Current Care Provided [...] [place] Prescription Coverage: Yes Preferred Pharmacy: [facility] [address] [address] - [place], [place] - [address] [place] [id number] [place] Status: Patient is a : unable to assess Primary Care Provider: Lovely Vicente MD [phone] Patient/Caregiver Goals of Treatment: Get out of here Potential Needs for Transition of Care: none Agency Referrals: none patient has used Charge Payment in the past Transportation: no concerns Transportation Anticipated: family or friend will provide Concerns to be Addressed: patient refuses services, discharge planning Assessment: Patient is admitted to [facility] Service pager [phone] for 76 y.o.??male??with h/o??CAD s/p 3vCABG (THOMPSON-LAD, [...] on current unit. Nick Georges RN technical training manager, Office of Care Management Pager: [phone] Brief Op Note - Vitaliy Nobles MD - 12/10/2021 8:31 AM EDT Images from the original note were not included. [facility] 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 Diabetes History: Don Fatima has had diabetes for 10 years. He has been on insulin for the last several years andis managed by his PCP. Lives in [place], [place] with his . 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 Monitoring - continue BG tid ac & hs Diet - low fat/low carb diet Exercise - weight-bearing exercise 30 min/day, as tolerated Thank you for allowing us to provide care for your patient Desirae Johnie QUINONES Endocrinology Pager [phone] 70 minutes of this 80 minute visit [...] OUTCOME EVALUATION: ongoing Plan of Care - Madeeline Cary RN - 12/09/2021 6:43 PM EDT [...] to remain on Med/Surg floor, please page [phone] for any further questions or concerns. LANDON [...] for further details. STEPHANIE Rebolledo 12/08/2021 Pager [phone] documented in this encounter Plan of Treatment Upcoming Encounters Date Type Specialty Care Team Description 05/28/2022 Appointment Cardiology Zulma Dolan MD [facility] [place] [address] (Wo rk) 05/28/2022 Laboratory Appointment Lab 05/28/2022 Office Visit Cardiology Zulma Dolan MD [facility] [place] [address] [facility] [place] [address] 06/10/2022 Office Visit Dermatology Laura Scherer MD [facility] DR TEJA GR-DERMAT [facility] [place] [place] [address] (Wo rk) Scheduled Referrals Name [...] 215 (H) 65 - 199 [facility] mg/dL [facility] Comment: Supplemental ranges: <140 mg/dL before meals <180 mg/dL all other times of the day Specimen Anatomical Collection Method Collection Time Receive d Time (Source) Location / / Volume Laterality Blood 12/12/2021 7:42 AM 7:42 EDT AM EDT Ifeanyi Truong MD POINT OF CARE TEST ORDERABLE S Performing Organization Address City/State/[place] [address] (ABNORMAL) Differential, Automated (12/12/2021 4:51 AM EDT) athologist Signature Neutrophils % 75.4 % [facility] Neutr Abs (ANC) 5.95 1.70 - [facility] [address] [facility] x10(3)/[facility] LABORATORY Lymphocytes % 12.2 % [facility] Lymphocytes Abs 1.0 0.9 - 3.2 [facility] x10(3)/[facility] LABORATORY Monocytes % 9.5 % [facility] Monocyte Abs 0.8 0.3 - 0.9 [facility] x10(3)/[facility] LABORATORY Eosinophils % 1.8 % [facility] Eosinophils Abs 0.1 0.0 - 0.4 [facility] x10(3)/[facility] LABORATORY Basophils % 0.5 % [facility] Basophils Abs 0.0 0.0 - 0.1 [facility] x10(3)/[facility] LABORATORY [...] Organization Address City/State/[place] [address] (ABNORMAL) Hemogram (12/12/2021 4:51 AM EDT) Analysis Performed At Patho logist Time Signature WBC 7.9 4.0 - 9.5 [facility] x10(3)/[facility] LABORATORY RBC 4.19 (L) 4.58 - [facility] [address] [facility] x10(6)/[facility] LABORATORY Hemoglobin 12.1 (L) 13.7 - [facility] 16.5 g/dL [facility] Hematocrit 36.7 (L) 40.5 - [facility] 48.5 % [facility] MCV 87.6 82.9 - [facility] 93.1 fL [facility] MCH 28.9 27.5 - [facility] 32.1 pg [facility] MCHC 33.0 32.0 - [facility] 35.7 g/dL [facility] Platelets 231 145 - 357 [facility] x10(3)/[facility] LABORATORY RDWSD 47.2 (H) 36.0 - [facility] SU 45.0 [facility] LABORATORY RDWCV 14.6 (H) 11.4 - [facility] 13.8 % [facility] MPV 9.5 7.6 - 12.9 [facility] LABORATORY nRBC % Auto 0.0 % [facility] nRBC Abs Auto 0.000 0.000 - [place] [address] [facility] x10(3)/[facility] LABORATORY Specimen Anatomical Collection Method Collection Time Receive d Time (Source) Location / / Volume Laterality Blood 12/12/2021 4:51 AM 2 5:06 EDT AM EDT Resulting Agency Comment Spec In Lab Bijan Sun MD HEMATOLOGY ORDERABLES Performing Organization Address City/[facility]/[place]IP [place] [address] (ABNORMAL) Prothrombin Time (12/12/2021 4:51 AM EDT) P athologist Signature PT 14.9 (H) 9.4 - 12.5 [facility] LABORATORY INR 1.3 [facility] LABORATORY [...] Cuevas MD HEMATOLOGY ORDERABLES Performing Organization Address City/[facility]/[place] [address] (ABNORMAL) BMP w/fasting Glucose (12/12/2021 4:51 AM EDT) athologist Signature Glucose 152 (H) 65 - 99 [facility] Fasting mg/dL [facility] Comment: ?Fasting* Glucose Interpretive [...] Cuevas MD CHEMISTRY ORDERABLES Performing Organization Address City/[facility]/ZIP [facility] Phon e Number [address] Magnesium (12/12/2021 4:51 AM EDT) P athologist Signature Magnesium 1.02 0.69 - 1.07 [facility] mmol/L [facility] Specimen Anatomical Collection Method Collection Time Receive d Time (Source) Location / / Volume Laterality Blood 12/12/2021 4:51 AM 2 5:06 EDT AM EDT Resulting Agency Comment Spec In Lab Iker Cuevas MD CHEMISTRY ORDERABLES Performing Organization Address [facility] Phon e Number [address] POCT Glucose (12/12/2021 3:43 AM EDT) P athologist Signature POC Glucose 138 65 - 199 [facility] mg/dL [facility] Comment: Supplemental ranges: <140 mg/dL before meals <180 mg/dL all other times of the day Specimen Anatomical Collection Method Collection Time Receive d Time (Source) Location / / Volume Laterality Blood 12/12/2021 3:43 AM 2 3:43 EDT AM EDT Iker Cuevas MD POINT OF CARE TEST ORDERABLE S Performing Organization Address City/State/[place] [address] POCT Glucose (12/11/2021 11:44 PM EDT) athologist Signature POC Glucose 124 65 - 199 [place] [facility] mg/dL [facility] Comment: Supplemental ranges: <140 mg/dL before meals <180 mg/dL all other times of the day Specimen Anatomical Collection Method Collection Time Receive d Time (Source) Location / / Volume Laterality Blood 12/11/2021 11:44 12/11/2021 PM EDT 11:44 PM EDT Iker Cuevas MD POINT OF CARE TEST ORDERABLE S Performing Organization Address City/[facility]/[place] [address] (ABNORMAL) POCT Glucose (12/11/2021 8:12 PM EDT) athologist Signature POC Glucose 200 (H) 65 - 199 [facility] SU mg/dL [facility] Comment: Supplemental ranges: <140 mg/dL before meals <180 mg/dL all other times of the day Specimen Anatomical Collection Method Collection Time Receive d Time (Source) Location / / Volume Laterality Blood 12/11/2021 8:12 PM 2 8:12 EDT PM EDT Iker Cuevas MD POINT OF CARE TEST ORDERABLE S Performing Organization Address City/[facility]/[place] [address] (ABNORMAL) POCT Glucose (12/11/2021 6:50 PM EDT) athologist Signature POC Glucose 245 (H) 65 - 199 [facility] mg/dL [facility] Comment: Supplemental ranges: <140 mg/dL before meals <180 mg/dL all other times of the day Specimen Anatomical Collection Method Collection Time Receive d Time (Source) Location / / Volume Laterality Blood 12/11/2021 6:50 PM 2 6:50 EDT PM EDT Iker Cuevas MD POINT OF CARE TEST ORDERABLE S Performing Organization Address City/State/[place] [address] (ABNORMAL) POCT Glucose (12/11/2021 4:00 PM EDT) athologist Signature POC Glucose 383 (H) 65 - 199 [facility] mg/dL [facility] Comment: Supplemental ranges: <140 mg/dL before meals <180 mg/dL all other times of the day Specimen Anatomical Collection Method Collection Time Receive d Time (Source) Location / / Volume Laterality Blood 12/11/2021 4:00 PM 4:00 EDT PM EDT Iker Cuevas MD POINT OF CARE TEST ORDERABLE S Performing Organization Address City/[facility]/[place] [address] (ABNORMAL) POCT Glucose (12/11/2021 12:01 PM EDT) athologist Signature POC Glucose 342 (H) 65 - 199 [facility] mg/dL [facility] Comment: Supplemental ranges: <140 mg/dL before meals <180 mg/dL all other times of the day Specimen Anatomical Collection Method Collection Time Receive d Time (Source) Location / / Volume Laterality Blood 12/11/2021 12:01 12/11/2021 PM EDT 12:01 PM EDT Iker Cuevas MD POINT OF CARE TEST ORDERABLE S Performing Organization Address City/[facility]/[place]IP [place] [address] COVID-19 PCR (12/11/2021 10:13 AM EDT) [facility] Method Time Signature SARS-CoV-2 Not Detected Not Detected [facility] RNA [facility] Comment: This result should be interpreted [...] diagnosis of COVID-19 is performed using the [employer] Dianna FRIEND S-CoV-2 Assay as authorized by the FDA Emergency Use Authorization (EUA). This EUA assay is intended for In-vitro Diagnostic (IVD) use with respiratory sp ecimens such as nasopharyngeal swabs collected from individuals during the ac terrence phase of infection. This assay is performed based on the instructions for use provided by [employer] and additional guidance provided by CDC [...] fact sheets at the following FDA website: https://www.fda.gov/medical-devices/umlqrgclyqe-fqqknbz-9060-hmpqf-83-jdaulwqcz- [id number]-owmlyuewtuwhtp-qaoihms-devices/ukcrx-qdsrwxxvada-lxze SARS-Cov-2 RNA Source TECHNOLOGY SALES SPECIALIST Swab [facility] LABORATORY Specimen (Source) Anatomical Collection Method Collection Time Re ceived Time Location / / Volume Laterality Nasopharyngeal Swab 12/11/2021 10:13 0503/2022 AM EDT 11:16 AM EDT Comment: Symptoms->Surveillance Resulting Agency Comment Spec In Lab Iker Cuevas MD MICROBIOLOGY - GENERAL ORDER ROBSON Performing Organization Address City/[facility]/[place] [address] POCT Glucose (12/11/2021 7:34 AM EDT) athologist Signature POC Glucose 198 65 - 199 [facility] mg/dL [facility] Comment: Supplemental ranges: <140 mg/dL before meals <180 mg/dL all other times of the day Specimen Anatomical Collection Method Collection Time Receive d Time (Source) Location / / Volume Laterality Blood 12/11/2021 7:34 AM 2 7:34 EDT AM EDT Iker Cuevas MD POINT OF CARE TEST ORDERABLE S Performing Organization Address City/[facility]/[place] [address] (ABNORMAL) POCT Glucose (12/11/2021 5:07 AM EDT) P athologist Signature POC Glucose 208 (H) 65 - 199 [facility] mg/dL [facility] Comment: Supplemental ranges: <140 mg/dL before meals <180 mg/dL all other times of the day Specimen Anatomical Collection Method Collection Time Receive d Time (Source) Location / / Volume Laterality Blood 12/11/2021 5:07 AM 2 5:07 EDT AM EDT Iker Cuevas MD POINT OF CARE TEST ORDERABLE S Performing Organization Address City/[facility]/[place] [address] (ABNORMAL) Differential, Automated (12/11/2021 4:28 AM EDT) [facility] Method Time Signature Neutrophils % 79.6 % [facility] LABORATORY Neutr Abs (ANC) 7.01 (H) 1.70 - [facility] [address] [facility] x10(3)/[facility] L LABORATORY Lymphocytes % 9.1 % [facility] LABORATORY Lymphocytes Abs 0.8 (L) 0.9 - 3.2 [facility] x10(3)/[facility] LABORATORY Monocytes % 9.2 % [facility] LABORATORY Monocyte Abs 0.8 0.3 - 0.9 [facility] x10(3)/[facility] LABORATORY Eosinophils % 1.3 % [facility] LABORATORY Eosinophils Abs 0.1 0.0 - 0.4 [facility] x10(3)/[facility] LABORATORY Basophils % 0.5 % [facility] LABORATORY Basophils Abs 0.0 0.0 - 0.1 [facility] x10(3)/[facility] LABORATORY Immature Gran % 0.30 [...] - 0.04 x10(3)/[facility] Specimen Anatomical Collection Method Collection Time Receive d Time (Source) Location / / Volume Laterality Blood 12/11/2021 4:28 AM 4:37 EDT AM EDT Resulting Agency Comment Spec In Lab Bijan Sun MD HEMATOLOGY ORDERABLES Performing Organization Address City/State/[place] [address] (ABNORMAL) Hemogram (12/11/2021 4:28 AM EDT) Analysis Performed At Patho logist Time Signature WBC 8.8 4.0 - 9.5 [facility] x10(3)/[facility] LABORATORY RBC 4.15 (L) 4.58 - [facility] [address] [facility] x10(6)/[facility] LABORATORY Hemoglobin 11.9 (L) 13.7 - [facility] 16.5 g/dL [facility] Hematocrit 36.9 (L) 40.5 - [facility] 48.5 % [facility] MCV 88.9 82.9 - [facility] 93.1 [facility] LABORATORY MCH 28.7 27.5 - [facility] 32.1 pg [facility] MCHC 32.2 32.0 - [facility] 35.7 g/dL [facility] Platelets 211 145 - 357 [facility] x10(3)/[facility] LABORATORY RDWSD 48.3 (H) 36.0 - [facility] 45.0 [facility] LABORATORY RDWCV 14.8 (H) 11.4 - [facility] 13.8 % [facility] MPV 9.6 7.6 - 12.9 [facility] LABORATORY nRBC % Auto 0.0 % [facility] LABORATORY nRBC Abs Auto 0.000 0.000 - [facility] [address] [facility] x10(3)/[facility] LABORATORY Specimen Anatomical Collection Method Collection Time Receive d Time (Source) Location / / Volume Laterality Blood 12/11/2021 4:28 AM 2 4:37 EDT AM EDT Resulting Agency Comment Spec In Lab Bijan Sun MD HEMATOLOGY ORDERABLES Performing Organization Address City/State/[place] [address] (ABNORMAL) Prothrombin Time (12/11/2021 4:28 AM EDT) P athologist Signature PT 17.7 (H) 9.4 - 12.5 [facility] LABORATORY INR 1.6 [facility] LABORATORY [...] Organization Address City/State/[place] [address] (ABNORMAL) BMP w/fasting Glucose (12/11/2021 4:28 AM EDT) athologist Signature Glucose 207 (H) 65 - 99 [facility] Fasting mg/dL [facility] Comment: ?Fasting* Glucose Interpretive [...] Cuevas MD CHEMISTRY ORDERABLES Performing Organization Address City/[facility]/[place] [address] Magnesium (12/11/2021 4:28 AM EDT) P athologist Signature Magnesium 1.04 0.69 - 1.07 [facility] mmol/L [facility] Specimen Anatomical Collection Method Collection Time Receive d Time (Source) Location / / Volume Laterality Blood 12/11/2021 4:28 AM 2 4:37 EDT AM EDT Resulting Agency Comment Spec In Lab Iker Cuevas MD CHEMISTRY ORDERABLES Performing Organization Address City/State/[place] [address] POCT Glucose (12/11/2021 3:58 AM EDT) athologist Signature POC Glucose 189 65 - 199 [facility] mg/dL [facility] Comment: Supplemental ranges: <140 mg/dL before meals <180 mg/dL all other times of the day Specimen Anatomical Collection Method Collection Time Receive d Time (Source) Location / / Volume Laterality Blood 12/11/2021 3:58 AM 2 3:58 EDT AM EDT Iker Cuevas MD POINT OF CARE TEST ORDERABLE S Performing Organization Address City/State/[place] [address] (ABNORMAL) POCT Glucose (12/10/2021 11:45 PM EDT) athologist Signature POC Glucose 205 (H) 65 - 199 [facility] mg[facility]dL [facility] Comment: Supplemental ranges: <140 mg/dL before meals <180 mg/dL all other times of the day Specimen Anatomical Collection Method Collection Time Receive d Time (Source) Location / / Volume Laterality Blood 12/10/2021 11:45 12/10/2021 PM EDT 11:45 PM EDT Iker Cuevas MD POINT OF CARE TEST ORDERABLE S Performing Organization Address City/State/[place] [address] (ABNORMAL) POCT Glucose (12/10/2021 7:54 PM EDT) athologist Signature POC Glucose 225 (H) 65 - 199 [facility] mg/dL [facility] Comment: Supplemental ranges: <140 mg/dL before meals <180 mg/dL all other times of the day Specimen Anatomical Collection Method Collection Time Receive d Time (Source) Location / / Volume Laterality Blood 12/10/2021 7:54 PM 2 7:54 EDT PM EDT Iker Cuevas MD POINT OF CARE TEST ORDERABLE S Performing Organization Address City/State/[place] [address] Potassium (12/10/2021 7:46 PM EDT) athologist Signature Potassium 4.2 3.5 - 5.0 [facility] mmol/L [facility] Comment: Please note: ??Patients [...] Organization Address City/State/[place] [address] (ABNORMAL) Basic Metabolic Panel (non-fasting) (12/10/2021 6:12 PM EDT) athologist Signature Glucose Lvl 246 (H) 65 - 199 [facility] mg/dL [facility] Comment: Diabetes: [...] Organization Address City/State/[place] [address] POCT Glucose (12/10/2021 4:59 PM EDT) P athologist Signature POC Glucose 158 65 - 199 [facility] mg/dL [facility] Comment: Supplemental ranges: <140 mg/dL before meals <180 mg/dL all other times of the day Specimen Anatomical Collection Method Collection Time Receive d Time (Source) Location / / Volume Laterality Blood 12/10/2021 4:59 PM 2 4:59 EDT PM EDT Iker Cuevas MD POINT OF CARE TEST ORDERABLE S Performing Organization Address City/State/[place] [address] (ABNORMAL) POCT Glucose (12/10/2021 12:43 PM EDT) athologist Signature POC Glucose 241 (H) 65 - 199 [facility] mg/dL [facility] Comment: Supplemental ranges: <140 mg/dL before meals <180 mg/dL all other times of the day Specimen Anatomical Collection Method Collection Time Receive d Time (Source) Location / / Volume Laterality Blood 12/10/2021 12:43 12/10/2021 PM EDT 12:43 PM EDT Iker Cuevas MD POINT OF CARE TEST ORDERABLE S Performing Organization Address City/State/ZIP Code Phon e Number [address] EKG 12 Lead (12/10/2021 11:17 AM EDT) Component Value Ref Range Test Analysis Performed Pathologis t Method Time At Signature Ventricular rate 62 BPM MUSE SYSTEM Atrial Rate 62 BPM MUSE SYSTEM P-R Interval 142 ms MUSE SYSTEM QRS Duration 100 ms MUSE SYSTEM Q-T Interval 434 ms MUSE SYSTEM QTC Calculated 440 ms MUSE SYSTEM (Bezet) Calculated P [place] 34 degrees MUSE SYSTEM Calculated R [place] -39 degrees MUSE SYSTEM Calculated T [place] 92 degrees MUSE SYSTEM INTERPRETATION Normal sinus [...] Laterality Volume Narrative 12/10/2021 12:04 PM EDT ?[facility] ? Cardiac Cathete rization/Intervention Report ? Patient Name: Don Fatima. ? Procedure Date: 12/10/2021 ? A #: [id number] ? Primary Physician: Nobles, Vitaliy P ? Case #: [id number] ? File Name: [id number] ? Catheterization Order Number: [id number] ? [facility] ? Final Report [place], [place] ? Patient Name: ? Don E. Stewa rt ? ID#: ?[id number] ? : ?1945 ? Procedure Date: ? December 10, 2021 ? Case #: ? [id number] ? Room: ? 1 ? Case Physician: [...] ?3.75 guiding catheter and a 3.5 Fr [facility] [place] 20 Mhz using Manual ?pullback. ??Imaging was [...] ?3.75 guiding catheter and a 3.5 Fr [facility] [place] 20 Mhz using Manual ?pullback. ??Imaging was [...] ?modification of this regimen. C [facility] Interventional Cardiology for ?questions. ?The 1 year bleeding risk as nsurat culated by the PRECISE DAPT score is High ?risk. ?High Bleeding Risk - Anticoagul ation and DAPT: ?- ??Assess ischemic and bleedin g risks using validated risk predictors ?(e.g. 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 Today, we stented the ?ostial [...] Procedure Note Vitaliy Nobles MD - 01/14/2022 [facility] Cardiac Catheterization/Intervention Re port Patient Name: Don Fatima Procedure Date: 12/10/2021 A #: [id number] Primary Physician: Vitaliy Nobles Case #: [id number] File Name: [id number] Catheterization Order Number: [id number] [facility] Final Report [place], [place] Patient Name: Don Fatima ID#: [...] 3.5 Fr [facility] [place] 20 Mhz using Manual pullback. Imaging was [...] 3.5 Fr [facility] [place] 20 Mhz using Manual pullback. Imaging was [...] modification of this regimen. Consult D [facility] Interventional [...] POC Glucose 262 (H) 65 - 199 [facility] mg/dL [facility] Comment: Supplemental ranges: <140 mg/dL before meals <180 mg/dL all other times of the day Specimen Anatomical Collection Method Collection Time Receive d Time (Source) Location / / Volume Laterality Blood 12/10/2021 10:30 12/10/2021 AM EDT 10:30 AM EDT Iker Cuevas MD POINT OF CARE TEST ORDERABLE S Performing Organization Address City/[facility] [place] [address] (ABNORMAL) POCT Glucose (12/10/2021 9:48 AM EDT) athologist Signature POC Glucose 279 (H) 65 - 199 [facility] mg/dL [facility] Comment: Supplemental ranges: <140 mg/dL before meals <180 mg/dL all other times of the day Specimen Anatomical Collection Method Collection Time Receive d Time (Source) Location / / Volume Laterality Blood 12/10/2021 9:48 AM 9:48 EDT AM EDT Iker Cuevas MD POINT OF CARE TEST ORDERABLE S Performing Organization Address City/State/[place] [address] (ABNORMAL) POCT Glucose (12/10/2021 9:07 AM EDT) P athologist Signature POC Glucose 268 (H) 65 - 199 [facility] mg/dL [facility] Comment: Supplemental ranges: <140 mg/dL before meals <180 mg/dL all other times of the day Specimen Anatomical Collection Method Collection Time Receive d Time (Source) Location / / Volume Laterality Blood 12/10/2021 9:07 AM 9:07 EDT AM EDT Iker Cuevas MD POINT OF CARE TEST ORDERABLE S Performing Organization Address City/State/[place] [address] (ABNORMAL) Point of Care Blood Gas Historical (12/10/2021 9:04 AM EDT) Patholo gist Method Time Signature POC pH 7.40 7.35 - [facility] 7.45 [facility] POC PCO2 40 35 - 45 [facility] mmHg [facility] POC PO2 63 (L) 85 - 104 [facility] mmHg [facility] POC Base Excess 0.0 -3.0 - 3.0 [facility] mmol/L [facility] POC HCO3 24.8 20.0 - [facility] 26.[address] [facility] mmol/[facility] LABORATORY POC Sodium 143 135 - 145 [facility] mmol/L [facility] POC Potassium 3.7 3.5 - 5.0 [facility] mmol/L [facility] POC Ionized Ca 1.07 (L) 1.15 - [facility] 1.[address] [facility] mmol/L HOSPITAL LABORATORY POC Hematocrit 30.0 (L) 40.0 - [facility] % [facility] POC Calc Hgb 10.2 (L) 13.7 - [facility] 17.5 g/dL [facility] Comment: The calculation of hemoglobin f rom hematocrit assumes a normal MCHC. POC Bgas Loc CC LAB [facility] LABORATORY Specimen Anatomical Collection Method Collection Time Receive d Time (Source) Location / / Volume Laterality Blood 12/10/2021 9:04 AM 2 EDT 12:00 PM EDT Ifeanyi Truong MD CHEMISTRY ORDERABLES Performing Organization Address City/[facility]/ZIP Code Phon e Number [address] (ABNORMAL) POCT Glucose (12/10/2021 7:19 AM EDT) athologist Signature POC Glucose 274 (H) 65 - 199 [facility] mg/dL [facility] Comment: Supplemental ranges: <140 mg/dL before meals <180 mg/dL all other times of the day Specimen Anatomical Collection Method Collection Time Receive d Time (Source) Location / / Volume Laterality Blood 12/10/2021 7:19 AM 2 7:19 EDT AM EDT Iker Cuevas MD POINT OF CARE TEST ORDERABLE S Performing Organization Address City/[facility]/[place] [address] Heparin (unfractionated) Level (12/10/2021 4:25 AM EDT) athologist Signature Heparin UFH 0.69 IU/mL [facility] LABORATORY Comment: Heparin (anti-Xa) levels [...] Organization Address City/State/[place] [address] [facility] LAB[address]ORY Drive (ABNORMAL) Differential, Automated (12/10/2021 4:25 AM EDT) [facility] Method Time Signature Neutrophils % 79.8 % [facility] LABORATORY Neutr Abs (ANC) 7.47 (H) 1.70 - [facility] [address] [facility] x10(3)/[facility] LABORATORY Lymphocytes % 10.6 % [facility] LABORATORY Lymphocytes Abs 1.0 0.9 - 3.2 [facility] x10(3)/[facility] LABORATORY Monocytes % 8.4 % [facility] LABORATORY Monocyte Abs 0.8 0.3 - 0.9 [facility] x10(3)/[facility] LABORATORY Eosinophils % 0.6 % [facility] LABORATORY Eosinophils Abs 0.1 0.0 - 0.4 [facility] x10(3)/[facility] LABORATORY Basophils % 0.2 % [facility] LABORATORY Basophils Abs 0.0 0.0 - 0.1 [facility] x10(3)/[facility] LABORATORY Immature Gran % 0.40 [...] - 0.04 x10(3)/[facility] Specimen Anatomical Collection Method Collection Time Receive d Time (Source) Location / / Volume Laterality Blood 12/10/2021 4:25 AM 4:34 EDT AM EDT Resulting Agency Comment Spec In Lab Morgan BROWN HEMATOLOGY ORDERABLES Performing Organization Address City/[facility]/[place] [address] (ABNORMAL) Hemogram (12/10/2021 4:25 AM EDT) Analysis Performed At Patho logist Time Signature WBC 9.4 4.0 - 9.5 [facility] x10(3)/[facility] LABORATORY RBC 3.81 (L) 4.58 - [facility] [address] [facility] x10(6)/[facility] LABORATORY Hemoglobin 11.1 (L) 13.7 - [facility] 16.5 g/dL [facility] Hematocrit 34.0 (L) 40.5 - [facility] 48.5 % [facility] MCV 89.2 82.9 - [facility] 93.1 [facility] LABORATORY MCH 29.1 27.5 - [facility] 32.1 pg [facility] MCHC 32.6 32.0 - [facility] 35.7 g/dL [facility] Platelets 183 145 - 357 [facility] x10(3)/[facility] LABORATORY RDWSD 49.9 (H) 36.0 - [facility] 45.0 [facility] LABORATORY RDWCV 15.2 (H) 11.4 - [facility] 13.8 % [facility]ORAT[facility] MPV 9.8 7.6 - 12.9 [facility] LABORATORY nRBC % Auto 0.0 % [facility] LABORATORY nRBC Abs Auto 0.000 0.000 - [facility] [address] [facility] x10(3)/[facility] LABORATORY Specimen Anatomical Collection Method Collection Time Receive d Time (Source) Location / / Volume Laterality Blood 12/10/2021 4:25 AM 4:34 EDT AM EDT Resulting Agency Comment Spec In Lab Morgan BROWN HEMATOLOGY ORDERABLES Performing Organization Address City/State/ZIP Code Phon e Number [place] [id number]OS[address] LAB[address]ORY Drive (ABNORMAL) Prothrombin Time (12/10/2021 4:25 AM EDT) P athologist Signature PT 20.0 (H) 9.4 - 12.5 [facility] LABORATORY INR 1.7 [facility] LABORATORY [...] Organization Address City/State/ZIP Code Phon e Number [place] [id number]OS[address] LAB[address] Drive (ABNORMAL) BMP w/fasting Glucose (12/10/2021 4:25 AM EDT) P athologist Signature Glucose 210 (H) 65 - 99 [facility] Fasting mg/dL [facility] Comment: ?Fasting* Glucose Interpretive [...] Organization Address City/State/[place] [address] Magnesium (12/10/2021 4:25 AM EDT) P athologist Signature Magnesium 0.95 0.69 - 1.07 [facility] mmol/L [facility] LABORATORY Specimen Anatomical Collection Method Collection Time Receive d Time (Source) Location / / Volume Laterality Blood 12/10/2021 4:25 AM 2 4:34 EDT AM EDT Resulting Agency Comment Spec In Lab Iker Cuevas MD CHEMISTRY ORDERABLES Performing Organization Address City/State/[place] [address] POCT Glucose (12/10/2021 1:58 AM EDT) athologist Signature POC Glucose 164 65 - 199 [facility] mg/dL [facility] Comment: Supplemental ranges: <140 mg/dL before meals <180 mg/dL all other times of the day Specimen Anatomical Collection Method Collection Time Receive d Time (Source) Location / / Volume Laterality Blood 12/10/2021 1:58 AM 2 1:58 EDT AM EDT Iker Cuevas MD POINT OF CARE TEST ORDERABLE S Performing Organization Address City/[facility]/[place] [address] (ABNORMAL) POCT Glucose (12/09/2021 9:02 PM EDT) athologist Signature POC Glucose 313 (H) 65 - 199 [facility] mg/dL [facility] Comment: Supplemental ranges: <140 mg/dL before meals <180 mg/dL all other times of the day Specimen Anatomical Collection Method Collection Time Receive d Time (Source) Location / / Volume Laterality Blood 12/09/2021 9:02 PM 2 9:02 EDT PM EDT Iker Cuevas MD POINT OF CARE TEST ORDERABLE S Performing Organization Address City/State/[place] [address] Heparin (unfractionated) Level (12/09/2021 7:30 PM EDT) athologist Signature Heparin UFH 0.48 IU/mL [facility] LABORATORY Comment: Heparin (anti-Xa) levels [...] Organization Address City/State/[place] [address] (ABNORMAL) Basic Metabolic Panel (non-fasting) (12/09/2021 7:30 PM EDT) P athologist Signature Glucose Lvl 372 (H) 65 - 199 [facility] mg/dL [facility] Comment: Diabetes: [...] Organization Address City/State/[place] [address] (ABNORMAL) POCT Glucose (12/09/2021 6:34 PM EDT) P athologist Signature POC Glucose 408 (H) 65 - 199 [facility] mg/dL [facility] Comment: Supplemental ranges: <140 mg/dL before meals <180 mg/dL all other times of the day Specimen Anatomical Collection Method Collection Time Receive d Time (Source) Location / / Volume Laterality Blood 12/09/2021 6:34 PM 2 6:34 EDT PM EDT Iker Cuevas MD POINT OF CARE TEST ORDERABLE S Performing Organization Address City/State/[place] [address] (ABNORMAL) POCT Glucose (12/09/2021 6:32 PM EDT) P athologist Signature POC Glucose 356 (H) 65 - 199 [facility] mg/dL [facility] Comment: Supplemental ranges: <140 mg/dL before meals <180 mg/dL all other times of the day Specimen Anatomical Collection Method Collection Time Receive d Time (Source) Location / / Volume Laterality Blood 12/09/2021 6:32 PM 2 6:32 EDT PM EDT Iker Cuevas MD POINT OF CARE TEST ORDERABLE S Performing Organization Address City/[facility]/[place] [address] (ABNORMAL) POCT Glucose (12/09/2021 4:19 PM EDT) athologist Signature POC Glucose 347 (H) 65 - 199 [facility] mg/dL [facility] Comment: Supplemental ranges: <140 mg/dL before meals <180 mg/dL all other times of the day Specimen Anatomical Collection Method Collection Time Receive d Time (Source) Location / / Volume Laterality Blood 12/09/2021 4:19 PM 2 4:19 EDT PM EDT Iker Cuevas MD POINT OF CARE TEST ORDERABLE S Performing Organization Address City/[facility]/[place] [address] Heparin (unfractionated) Level (12/09/2021 1:29 PM EDT) athologist Signature Heparin UFH 0.42 IU/mL [facility] LABORATORY Comment: Heparin (anti-Xa) levels [...] Cuevas MD HEMATOLOGY ORDERABLES Performing Organization Address City/[facility]/[place] [address] (ABNORMAL) POCT Glucose (12/09/2021 12:02 PM EDT) P athologist Signature POC Glucose 235 (H) 65 - 199 [facility] mg[facility]dL [facility] Comment: Supplemental ranges: <140 mg/dL before meals <180 mg/dL all other times of the day Specimen Anatomical Collection Method Collection Time Receive d Time (Source) Location / / Volume Laterality Blood 12/09/2021 12:02 12/09/2021 PM EDT 12:02 PM EDT Iker Cuevas MD POINT OF CARE TEST ORDERABLE S Performing Organization Address City/[facility]/[place] [address] (ABNORMAL) POCT Glucose (12/09/2021 9:44 AM EDT) athologist Signature POC Glucose 214 (H) 65 - 199 [facility] mg/dL [facility] LAB[facility] Comment: Supplemental ranges: <140 mg/dL before meals <180 mg/dL all other times of the day Specimen Anatomical Collection Method Collection Time Receive d Time (Source) Location / / Volume Laterality Blood 12/09/2021 9:44 AM 9:44 EDT AM EDT Iker Cuevas MD POINT OF CARE TEST ORDERABLE S Performing Organization Address City/[facility]/[place] [address] EKG 12 Lead (12/09/2021 7:57 AM EDT) Component Value Ref Range Test Analysis Performed Pathologis t Method Time At Signature Ventricular rate 101 BPM MUSE SYSTEM Atrial Rate 101 BPM MUSE SYSTEM P-R Interval 150 ms MUSE SYSTEM QRS Duration 112 ms MUSE SYSTEM Q-T Interval 364 ms MUSE SYSTEM QTC Calculated 471 ms MUSE SYSTEM (Bezet) Calculated P [place] 59 degrees MUSE SYSTEM Calculated R [place] -42 degrees MUSE SYSTEM Calculated T [place] 102 degrees MUSE SYSTEM INTERPRETATION Sinus tachycardia Occasional Premature ventricular com plexes MUSE SYSTEM Left axis deviation 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) Abnormal ECG When compared with ECG of 08-DEC-2021 16:40, Premature ventricular complexes are now Present Confirmed by MD Fernandez Danette ([id number]) on 12/10/2021 4:55:06 PM Specimen Anatomical Collection Method Collection Time Receive d Time (Source) Location / / Volume Laterality 12/09/2021 7:57 AM 2 4:55 EDT PM EDT Iker Cuevas MD ECG ORDERABLES Performing Organization Address City/State/ZIP Code Phon e Number MUSE SYSTEM (ABNORMAL) POCT Glucose (12/09/2021 7:28 AM EDT) P athologist Signature POC Glucose 263 (H) 65 - 199 [facility] mg/dL [facility] LABORATORY Comment: Supplemental ranges: <140 mg/dL before meals <180 mg/dL all other times of the day Specimen Anatomical Collection Method Collection Time Receive d Time (Source) Location / / Volume Laterality Blood 12/09/2021 7:28 AM 2 7:28 EDT AM EDT Iker Cuevas MD POINT OF CARE TEST ORDERABLE S Performing Organization Address City/State/[place] [address] (ABNORMAL) Hemoglobin A1c (12/09/2021 [...] Mellitus, Diabetes Care 2013; 36: Suppl. 1, V37-56 Est Avg Gluc See note mg/dL [facility] [...] with hemoglobinopathies. Additional resources are available on [facility] ADA website. Macario HAMMOND, Ruthann J, Deysi R, et al. ??Tr anslating the A1C assay into estimated average glucose values. ??Diabetes Care 2008:31(8):2544-2762. Specimen Anatomical Collection Method Collection Time Receive d Time (Source) Location / / Volume Laterality Blood Venous Draw / 12/09/2021 6:18 AM 12/10/19 22 Unknown EDT 12:24 PM EDT Resulting Agency Comment Spec In Lab Migdalia BROWN CHEMISTRY ORDERABLES Performing Organization Address City/State/[place] [address] (ABNORMAL) Prothrombin Time (12/09/2021 6:18 AM EDT) athologist Signature PT 26.6 (H) 9.4 - 12.5 [facility] LABORATORY INR 2.3 [facility] LABORATORY [...] Migdalia BROWN HEMATOLOGY ORDERABLES Performing Organization Address City/[facility]/ZIP Code Phon e Number [address] Heparin (unfractionated) Level (12/09/2021 6:18 AM EDT) athologist Signature Heparin UFH 0.24 IU/mL [facility] LABORATORY Comment: Heparin (anti-Xa) levels [...] Cuevas MD HEMATOLOGY ORDERABLES Performing Organization Address City/[facility]/ZIP Code Phon e Number [address] (ABNORMAL) Differential, Automated (12/09/2021 6:18 AM EDT) Patholo gist Method Time Signature Neutrophils % 91.5 % [facility] LABORATORY Neutr Abs (ANC) 15.78 (H) 1.70 - [facility] [address] [facility] x10(3)/[facility] L LABORATORY Lymphocytes % 2.9 % [facility] LABORATORY Lymphocytes Abs 0.5 (L) 0.9 - 3.2 [facility] x10(3)/[facility] LABORATORY Monocytes % 4.9 % [facility] LABORATORY Monocyte Abs 0.8 0.3 - 0.9 [facility] x10(3)/[facility] LABORATORY Eosinophils % 0.0 % [facility] LABORATORY Eosinophils Abs 0.0 0.0 - 0.4 [facility] x10(3)/[facility] LABORATORY Basophils % 0.2 % [facility] LABORATORY Basophils Abs 0.0 0.0 - 0.1 [facility] x10(3)/[facility] LABORATORY Immature Gran % 0.50 [...] Abs 0.09 (H) 0.00 - 0.04 x10(3)/[facility] LABORATORY Specimen Anatomical Collection Method Collection Time Receive d Time (Source) Location / / Volume Laterality Blood 12/09/2021 6:18 AM 2 6:33 EDT AM EDT Resulting Agency Comment Spec In Lab Morgan BROWN HEMATOLOGY ORDERABLES Performing Organization Address City/State/[place] [address] (ABNORMAL) Hemogram (12/09/2021 6:18 AM EDT) Analysis Performed At Patho logist Time Signature WBC 17.2 (H) 4.0 - 9.5 [facility] x10(3)/[facility] LABORATORY RBC 4.32 (L) 4.58 - [facility] [address] [facility] x10(6)/[facility] LABORATORY Hemoglobin 12.6 (L) 13.7 - [place] 16.5 g/dL [facility] LABORATORY Hematocrit 38.9 (L) 40.5 - [place] 48.5 % [facility] LABORATORY MCV 90.0 82.9 - [facility] 93.1 [facility] LABORATORY MCH 29.2 27.5 - [place] 32.1 pg [facility] LABORATORY MCHC 32.4 32.0 - [place] ZHAOSU 35.7 g/dL [facility] LABORATORY Platelets 193 145 - 357 [facility] x10(3)/[facility] LABORATORY RDWSD 50.4 (H) 36.0 - [facility] 45.0 [facility] LABORATORY RDWCV 15.2 (H) 11.4 - [facility] 13.8 % [facility] LABORAT[facility] MPV 9.5 7.6 - 12.9 [facility] LABORATORY nRBC % Auto 0.0 % [facility] LABORATORY nRBC Abs Auto 0.000 0.000 - [facility] SU [address] [facility] x10(3)/[facility] LABORATORY Specimen Anatomical Collection Method Collection Time Receive d Time (Source) Location / / Volume Laterality Blood 12/09/2021 6:18 AM 6:33 EDT AM EDT Resulting Agency Comment Spec In Lab Morgan BROWN HEMATOLOGY ORDERABLES Performing Organization Address City/State/[place] [address] Lipid Panel (Reflex Direct LDL) (12/09/2021 6:18 AM EDT) P athologist Signature Chol, Total 105 mg/dL [facility] LABORATORY Comment: Lower Risk: <200 mg/dL Average Risk: 200-239 mg/dL Higher Risk: >vf=278 mg/dL Triglycerides 133 mg/dL [facility] LABORATORY Comment: Average Risk/Lower Risk: <150 mg/dL Borderline High Risk: 150-199 mg/dL High Risk: 200-499 mg/dL Very High Risk: >da=832 mg/dL HDL 42 mg/dL [facility] LABORATORY Comment: Males: ?? Higher Risk: <40 mg/dL Females: ?? Higher Risk: <50 mg/dL LDL Cholesterol 36 mg/dL [facility] LABORATORY Comment: Lowest Risk: <100 mg/dL Lower Risk: 100-129 mg/dL Borderline High Risk: 130-159 mg/dL High Risk: 160-189 mg/dL Very High Risk: >li=799 mg/dL Chol/HDL Ratio 2.5 ratio [facility] LABORATORY Lipid Interpretation See Note [facility] LABORATORY Comment: Lipid management should be guided by a p atient? s ASCVD risk, goals and preferences. ACC/AHA Guidelines recommend high intens ity statin if clinical ASCVD or LDL greater than or equal to 190 mg/dL. http://[employer].com/IGP-LMO-Zzzswpkfr Adults aged 40-75 with LDL 70-189 mg/dL should have their 10 year ASCVD risk estimated with the ACC/AHA ASCVD risk es timator http://tools.acc.org/GAUMQ-Dsdh-Bamrpmzt r/ Statin should be discussed if risk [...] Organization Address City/State/[place] [address] TSH (12/09/2021 6:18 AM EDT) athologist Signature TSH 1.60 0.27 - 4.20 [facility] mcIU/mL [facility] LABORAT[facility] Comment: Reference Interval (mcIU/mL): Females: ??First Trimester: 0.23-3.88 ??Second Trimester: 0.22-3.90 ??Third Trimester: 0.44-4.66 Specimen Anatomical Collection Method Collection Time Receive d Time (Source) Location / / Volume Laterality Blood 12/09/2021 6:18 AM 2 6:33 EDT AM EDT Resulting Agency Comment Spec In Lab Iker Cuevas MD CHEMISTRY ORDERABLES Performing Organization Address City/[facility]/[place] [address] Hepatic Function Panel (12/09/2021 6:18 AM EDT) P athologist Signature Total Protein 7.3 6.1 - 8.0 [place] [facility] g/dL [facility] Albumin 4.2 3.2 - 5.2 [place] [facility] g/dL [facility] AST 25 0 - 39 [facility] SU unit/L [facility] ALT 15 0 - 55 [place] unit/L [facility] Alk Phos 75 40 - 130 [place] [facility] unit/L [facility] Total 1.1 0.2 - 1.3 [place] Bilirubin mg/dL [facility] Bili, Direct 0.2 0.0 - 0.3 [place] [facility] mg/dL [facility] LABORATORY Specimen Anatomical Collection Method Collection Time Receive d Time (Source) Location / / Volume Laterality Blood 12/09/2021 6:18 AM 2 6:33 EDT AM EDT Resulting Agency Comment Spec In Lab Iker Cuevas MD CHEMISTRY ORDERABLES Performing Organization Address City/[facility]/[place] [address] (ABNORMAL) BMP w/fasting Glucose (12/09/2021 6:18 AM EDT) P athologist Signature Glucose 235 (H) 65 - 99 [place] [facility] Fasting mg/dL [facility] LABORATORY Comment: ?Fasting* Glucose Interpretive [...] Address City/State/ZIP Code Phon e Number [address] Magnesium (12/09/2021 6:18 AM EDT) P athologist Signature Magnesium 0.81 0.69 - 1.07 [facility] mmol/L [facility] LAB[facility] Specimen Anatomical Collection Method Collection Time Receive d Time (Source) Location / / Volume Laterality Blood 12/09/2021 6:18 AM 2 6:33 EDT AM EDT Resulting Agency Comment Spec In Lab Iker Cuevas MD CHEMISTRY ORDERABLES Performing Organization Address City/[facility]/ZIP [facility] [place] [address] (ABNORMAL) Troponin (12/09/2021 6:18 AM EDT) athologist Signature Troponin-T 1.13 (H) 0.00 - [place] 0.00 ng/mL [facility] Comment: The 99th percentile [...] additional sample may be indicated. Reference: Third Vernon Definition of Myocardial Infarction. Journal of the [place] College [employer] 2012;60:1581-98 Specimen Anatomical Collection Method Collection Time Receive d Time (Source) Location / / Volume Laterality Blood 12/09/2021 6:18 AM 2 6:33 EDT AM EDT Resulting Agency Comment Spec In Lab Iker Cuevas MD CHEMISTRY ORDERABLES Performing Organization Address City/State/ZIP Code Phon e Number [place] [id number] XR Chest One View [...] have questions please contact the health care services manager that requested your imaging first. ? [...] have questions please contact the health care services manager that requested your imaging first. Amber Sanches MD IMG DX ORDERABLES (ABNORMAL) BLOOD GAS 2 ARTERIAL (12/09/2021 5:14 AM EDT) Analysis Performed At Patho logist Time Signature pH Art 7.43 7.35 - [facility] 7.45 [facility]ORATORY pCO2 Art 36 35 - 45 [facility] mmHg [facility] pO2 Art 67 (L) 85 - 104 [facility] mmHg [facility] HCO3 Art 23.4 20.0 - [facility] 26.0 [facility] mmol/L [facility] LABORATORY BE Art -0.9 -3.0 - 3.0 [facility] mmol/L [facility] Hgb Blood Gas 13.2 (L) 13.7 - [facility] 16.5 g/dL [facility]OR[facility] O2HB Art 91.3 (L) 94.0 - [facility] 97.0 % [facility] COHB Art 0.4 % [place] [...] Organization Address City/State/[place] [address] POCT Glucose (12/09/2021 4:46 AM EDT) athologist Signature POC Glucose 198 65 - 199 [facility] mg/dL [facility] Comment: Supplemental ranges: <140 mg/dL before meals <180 mg/dL all other times of the day Specimen Anatomical Collection Method Collection Time Receive d Time (Source) Location / / Volume Laterality Blood 12/09/2021 4:46 AM 2 4:46 EDT AM EDT Iker Cuevas MD POINT OF CARE TEST ORDERABLE S Performing Organization Address City/State/[place] [address] (ABNORMAL) POCT Glucose (12/09/2021 3:01 AM EDT) athologist Signature POC Glucose 225 (H) 65 - 199 [facility] mg/dL [facility] Comment: Supplemental ranges: <140 mg/dL before meals <180 mg/dL all other times of the day Specimen Anatomical Collection Method Collection Time Receive d Time (Source) Location / / Volume Laterality Blood 12/09/2021 3:01 AM 2 3:01 EDT AM EDT Iker Cuevas MD POINT OF CARE TEST ORDERABLE S Performing Organization Address City/State/[place] [address] (ABNORMAL) POCT Glucose (12/08/2021 10:55 PM EDT) athologist Signature POC Glucose 327 (H) 65 - 199 [facility] mg/dL [facility] Comment: Supplemental ranges: <140 mg/dL before meals <180 mg/dL all other times of the day Specimen Anatomical Collection Method Collection Time Receive d Time (Source) Location / / Volume Laterality Blood 12/08/2021 10:55 12/08/2021 PM EDT 10:55 PM EDT Iker Cuevas MD POINT OF CARE TEST ORDERABLE S Performing Organization Address City/State/[place] [address] Heparin (unfractionated) Level (12/08/2021 10:03 PM EDT) P athologist Signature Heparin UFH 0.18 IU/mL [facility] LABORATORY Comment: Heparin (anti-Xa) levels [...] Organization Address City/State/[place] [address] (ABNORMAL) Troponin (12/08/2021 10:03 PM EDT) P athologist Signature Troponin-T 0.92 (H) 0.00 - [facility] 0.00 ng/mL [facility]ORAT[facility] Comment: The 99th percentile [...] additional sample may be indicated. Reference: Third Vernon Definition of Myocardial Infarction. Journal of the [place] College [employer]iology 2012;60:1581-98 Specimen Anatomical Collection Method Collection Time Receive d Time (Source) Location / / Volume Laterality Blood 12/08/2021 10:03 12/08/2021 PM EDT 10:31 PM EDT Resulting Agency Comment Spec In Lab Iker Cuevas MD CHEMISTRY ORDERABLES Performing Organization Address City/State/[place] [address] (ABNORMAL) POCT Glucose (12/08/2021 8:22 PM EDT) athologist Signature POC Glucose 429 (H) 65 - 199 [facility] mg/dL [facility] Comment: Supplemental ranges: <140 mg/dL before meals <180 mg/dL all other times of the day Specimen Anatomical Collection Method Collection Time Receive d Time (Source) Location / / Volume Laterality Blood 12/08/2021 8:22 PM 2 8:22 EDT PM EDT Iker Cuevas MD POINT OF CARE TEST ORDERABLE S Performing Organization Address City/[facility]/[place] [address] (ABNORMAL) POCT Glucose (12/08/2021 7:06 PM EDT) P athologist Signature POC Glucose 442 (H) 65 - 199 [facility] SU mg/dL [facility] Comment: Supplemental ranges: <140 mg/dL before meals <180 mg/dL all other times of the day Specimen Anatomical Collection Method Collection Time Receive d Time (Source) Location / / Volume Laterality Blood 12/08/2021 7:06 PM 2 7:06 EDT PM EDT Iker Cuevas MD POINT OF CARE TEST ORDERABLE S Performing Organization Address City/[facility]/[place] [address] Magnesium (12/08/2021 6:02 PM EDT) athologist Signature Magnesium 0.86 0.69 - 1.07 [facility] mmol/L [facility]OR[facility] Specimen Anatomical Collection Method Collection Time Receive d Time (Source) Location / / Volume Laterality Blood 12/08/2021 6:02 PM 6:36 EDT PM EDT Resulting Agency Comment Spec In Lab Iker Cuevas MD CHEMISTRY ORDERABLES Performing Organization Address City/State/[place] [address] (ABNORMAL) Basic Metabolic Panel (non-fasting) (12/08/2021 6:02 PM EDT) athologist Signature Glucose Lvl 392 (H) 65 - 199 [facility] mg/dL [facility] Comment: Diabetes: [...] Organization Address City/State/ZIP Code Phon e Number [place] [phone] Drive (ABNORMAL) Differential, Automated (12/08/2021 6:02 PM EDT) [facility] gist Method Time Signature Neutrophils % 89.5 % [facility] LABORATORY Neutr Abs (ANC) 13.97 (H) 1.70 - [facility] 6.[address] [facility] x10(3)/[facility] L LABORATORY Lymphocytes % 3.7 % [facility] LABORATORY Lymphocytes Abs 0.6 (L) 0.9 - 3.2 [facility] x10(3)/[facility] LABORATORY Monocytes % 6.1 % [facility] LABORATORY Monocyte Abs 1.0 (H) 0.3 - 0.9 [facility] x10(3)/[facility] LABORATORY Eosinophils % 0.0 % [facility] LABORATORY Eosinophils Abs 0.0 0.0 - 0.4 [facility] x10(3)/[facility] LABORATORY Basophils % 0.2 % [facility] LABORATORY Basophils Abs 0.0 0.0 - 0.1 [facility] x10(3)/[facility] LABORATORY Immature Gran % 0.50 [...] Abs 0.08 (H) 0.00 - 0.04 x10(3)/[facility] LABORATORY Specimen Anatomical Collection Method Collection Time Receive d Time (Source) Location / / Volume Laterality Blood 12/08/2021 6:02 PM 6:36 EDT PM EDT Resulting Agency Comment Spec In Lab Morgan BROWN HEMATOLOGY ORDERABLES Performing Organization Address City/State/[place] [address] (ABNORMAL) Hemogram (12/08/2021 6:02 PM EDT) Analysis Performed At Patho logist Time Signature WBC 15.6 (H) 4.0 - 9.5 [facility] x10(3)/[facility] LABORATORY RBC 4.05 (L) 4.58 - [facility] SU 5.[address] [facility] x10(6)/[facility] LABORATORY Hemoglobin 11.8 (L) 13.7 - [facility] 16.5 g/dL [facility] Hematocrit 35.8 (L) 40.5 - [facility] 48.5 % [facility]AT[facility] MCV 88.4 82.9 - [facility] 93[facility]1 [facility] LABORATORY MCH 29.1 27.5 - [facility] SU 32.1 pg [facility] MCHC 33.0 32.0 - [facility] 35.7 g/dL [facility] Platelets 178 145 - 357 [facility] x10(3)/[facility] LABORATORY RDWSD 49.3 (H) 36.0 - [facility] SU 45.0 [facility] LABORATORY RDWCV 15.1 (H) 11.4 - [facility] SU 13.8 % [facility] LABORAT[facility] MPV 10.4 7.6 - 12.9 [facility] LABORATORY nRBC % Auto 0.0 % [facility] LABORATORY nRBC Abs Auto 0.000 0.000 - [place] [address] [facility] x10(3)/[facility] LABORATORY Specimen Anatomical Collection Method Collection Time Receive d Time (Source) Location / / Volume Laterality Blood 12/08/2021 6:02 PM 2 6:36 EDT PM EDT Resulting Agency Comment Spec In Lab Morgan BROWN HEMATOLOGY ORDERABLES Performing Organization Address City/State/ZIP Code [place] [address] (ABNORMAL) Troponin (12/08/2021 6:02 PM EDT) P athologist Signature Troponin-T 0.89 (H) 0.00 - [place] 0.00 ng/mL [facility] Comment: The 99th percentile [...] additional sample may be indicated. Reference: Third Vernon Definition of Myocardial Infarction. Journal of the [place] College [employer] Cardiology 2012;60:1581-98 Specimen Anatomical Collection Method Collection Time Receive d Time (Source) Location / / Volume Laterality Blood 12/08/2021 6:02 PM 2 6:36 EDT PM EDT Resulting Agency Comment Spec In Lab Iker Cuevas MD CHEMISTRY ORDERABLES Performing Organization Address City/State/ZIP Code Phon e Number [facility] [place] [address] COVID-19 PCR (12/08/2021 5:00 PM EDT) [facility] Method Time Signature SARS-CoV-2 Not Detected Not Detected [facility] RNA PCR [facility] LABORATORY Comment: This result should be interpreted [...] using the Simplexa COVID-19 Direct Assay by [employer]joi marcum as authorized by the FDA issued [...] fact sheets at the following FDA website: https://www.fda.gov/medical-devices/gvpdpyguztk-blxsjsj-0597-gtqgk-90-fbmblkqpk- piz-cfyrqwpfqzeopv-fkzydee-devices/xzihl-doyosevfiut-hxvw SARS-CoV-2 Source [employer]CH[employer] Swab [facility] LABORATORY Specimen (Source) Anatomical Collection Method Collection Time Re ceived Time Location / / Volume Laterality Nasopharyngeal Swab 12/08/2021 5:00 12/08 PM EDT 6:03 PM EDT Comment: Symptoms->Surveillance Resulting Agency Comment Spec In Lab Iker Cuevas MD MICROBIOLOGY - GENERAL ORDER [place] Performing Organization Address City/[facility] Phon e Number [place] [phone]OSP[address] LAB[address] EKG 12 Lead (12/08/2021 4:40 PM EDT) Component Value Ref Range Test Analysis Performed Pathologis t Method Time At Signature Ventricular rate 78 BPM MUSE SYSTEM Atrial Rate 78 BPM MUSE SYSTEM P-R Interval 152 ms MUSE SYSTEM QRS Duration 96 ms MUSE SYSTEM Q-T Interval 396 ms MUSE SYSTEM QTC Calculated 451 ms MUSE SYSTEM (Bezet) Calculated P [place] 44 degrees MUSE SYSTEM Calculated R [place] -31 degrees MUSE SYSTEM Calculated T [place] 124 degrees MUSE SYSTEM INTERPRETATION Normal sinus [...] Cuevas MD ECG ORDERABLES Performing Organization Address City/[facility] Phon e Number MUSE SYSTEM (ABNORMAL) POCT Glucose (12/08/2021 4:34 PM EDT) P athologist Signature POC Glucose 400 (H) 65 - 199 [place] [facility] mg/dL [facility] Comment: Supplemental ranges: <140 mg/dL before meals <180 mg/dL all other times of the day Specimen Anatomical Collection Method Collection Time Receive d Time (Source) Location / / Volume Laterality Blood 12/08/2021 4:34 PM 4:34 EDT PM EDT Iker Cuevas MD POINT OF CARE TEST ORDERABLE S Performing Organization Address City/State/[place] [address] documented in this encounter [...] Coronary atherosclerosis of unspecified type of vessel, bois forte or graft Cardiomyopathy, ischemic Other specified forms [...] (Given - Provider: Emma Garcia RN)0805 ([facility] Hold - Provider: Admin Adt [...] NOT CRUSH OR OPEN, Routine 1230 ([facility] Unhold - Provider: Admin Adt) [...] Reason: Transfer to a Procedural area)1230 ([facility] Unhold - Provider: Admin Adt) 10 mg, Rectal, DAILY PRN, Starting on 12/09/21 at 1629, Until Wed12/12/21 at 1312, Constipation, Routine dextrose 10% infusion(Linked Group 2) 08 ([facility] Hold - Provider: Admin Adt - Reason: Transfer to a Procedural area)1230 ([facility] Unhold - Provider: Admin Adt) [...] 1 mg( Linked Group 2) 08 ([facility] Hold - Provider: Admin Adt - Reason: Transfer to a Procedural area)1230 ([facility] Unhold - Provider: Admin Adt) [...] (Glutose) 40% oral geL(Linked Group 2) 0805 ([facility] Hold - Provider: Admin Adt - Reason: Transfer to a Procedural area)1230 ([facility] Unhold - Provider: Admin Adt) [...] (Intra-Procedure), Routine niCARdipine (Cardene) (100 mcg/mL) dilution (LINK MACHINE OPERATOR) (CANCELED) 1030 (Given - Provider: [...] Reason: Transfer to a Procedural area)1230 ([facility] Unhold - Provider: Admin Adt) [...] episode. & nbsp; For persistent hypoglycemia, con jawbone puller longer-acting treatment for the duration of the [...]
Routine documented in this encounter Care Teams Manufacturing Teacher Relationship Specialty Start Date End Date Lovely Vicente MD PCP - General 04/16/[address] [place] [address] documented as of this encounter
--- OUTSIDE RECORDS SUMMARY | 2022-04-06 10:37 | XMS_ITS | Encounter Summary ---
:1945 Author Organization [facility] [place] [address] Care Team Providers Name Role Phone Lovely Vicente MD Primary Care Provider Reason for Referral Diagnostic Test (Routine) - Closed Specialty Diagnoses / Procedures Referred By Contact Refer red To Contact Cardiology Diagnoses Chronic systolic heart failure Danette Maxwell APRN [facility] Non-Inv Card Lab Procedures Echocardiogram Transthoracic(Leb) [facility] [place] [address] [place] [address] Referral ID Status Reason Start Date Expiration Date Visits V isits Requested Authorized [id number] Closed Specialty 07/17/2019 09/14/2019 1 1 Service Requested Reason for Visit Diagnostic Test (Routine) - Closed Specialty Diagnoses / Procedures Referred By Contact Refer red To Contact Cardiology Diagnoses Chronic systolic heart failure Danette Maxwell APRN [facility] Non-Inv Card Lab Procedures Echocardiogram Transthoracic(Leb) [facility] [place] [address] [place] [address] Referral ID Status Reason Start Date Expiration Date Visits V isits Requested Authorized [id number] Closed Specialty 07/17/2019 09/14/2019 1 1 Service Requested Encounter Details Date Type Department Care Team Description 07/28/2019 Hospital Encounter Non-Invasive Chronic s ystolic heart [place] [address] Social History Tobacco Use Types Packs/Day [...] Dolan MD [facility] [place], [place] [address] (Wo rk) 05/28/2022 Laboratory Appointment Lab 05/28/2022 Office Visit Cardiology Zulma Dolan MD [facility] [place] [address] Liz Poole PA [facility] [place] [address] 06/10/2022 Office Visit Dermatology Laura Scherer MD [facility] [address] [place], [place] [address] (Wo rk) documented as of [...] Mccollum ? (Age): 1945(74y) Med Rec#: ? [id number] ?Sex: ?M ? Site Loc: ? [facility] ?Ht / Wt: ??172(cm)/81(kg) Pt. Loc: ?Echo Lab ?BSA: ?1.94 Study Date: ?? 07/28/2019 ?Pt. Type: Outpatient Tape: ? Referring: MARY ELLEN Reading: Ifeanyi Truong ([id number]) Fitter Machinist: Fadumo Flanagan RDCS, FASE Diagnosis: *Chronic systolic [...] E-wave Vmax ?1 ?m/sec ? MV deceleration iwku221.5 ? msec ? MV A-wave Vmax ?1 [...] ? Pulmonic Valve/Qp:Qs ?Value ?Units (Range) ? [place] end-diastolic Vma1.1 ?m/sec ? Wall Motion: Segment Name ?Rest ? Base-Anteroseptal ?? Normal ? Base-Anterior ? Normal ? Base-Anterolateral ??Normal ? Base-Posterolateral Normal ? Base-Inferior ? Akinetic ? Base-Inferoseptal ?? Normal ? Mid-Anteroseptal ?Normal ? Mid-Anterior ?Hypokinetic ? Mid-Anterolateral ?? Normal ? Mid-Posterolateral ??Normal ? Mid-Inferior ?Hypokinetic ? Mid-Inferoseptal ?Normal ? [place]-Septal ? Normal ? [place]-Anterior ? Hypokinetic ? [place]-Lateral ?Normal ? [place]-Inferior ? Akinetic ? [place]-Tip ?Hypokinetic ? This report has been electronically sign ed by: _ Ifeanyi Truong M.D. ? 07/28/2019 0 8:38:01 Images reviewed and interpretation verif ied [facility] Cardiac Ultrasound Laboratory Procedure Note Ifeanyi Truong MD - 07/28/2019Formatt ing of this note might be different from the original. Procedure: Transthoracic Echocardiogram Patient: NATALYA MCBRIDE(Age): [birth year]74y) Med Rec#: [id number] Sex: M Site Loc: [facility] Ht / Wt: 172(cm)/81(kg) Pt. Loc: Echo Lab BSA: 1.94 Study Date: 07/28/2019 Pt. Type: Outpati ent Tape: Referring: MARY ELLEN Reading: Ifeanyi Truong ([id number]) Fitter Machinist: Fadumo Flanagan [facility], [facility] Diagnosis: *Chronic systolic (congestive) heart fa ilure [...] MV E-wave Vmax 1 m/sec MV deceleration iylx032.5 msec MV A-wave Vmax 1 m/sec MV [...] 0.7 ratio Pulmonic Valve/Qp:Qs Value Units (Range) [place] end-diastolic Vma1.1 m/sec Wall Motion: Segment Name Rest Base-Anteroseptal Normal Base-Anterior Normal Base-Anterolateral Normal Base-Posterolateral Normal Base-Inferior Akinetic Base-Inferoseptal Normal Mid-Anteroseptal Normal Mid-Anterior Hypokinetic Mid-Anterolateral Normal Mid-Posterolateral Normal Mid-Inferior Hypokinetic Mid-Inferoseptal Normal [place]-Septal Normal [place]-Anterior Hypokinetic [place]-Lateral Normal [place]-Inferior Akinetic [place]-Tip Hypokinetic This report has been electronically sign ed by: _ Ifeanyi Truong M.D. 07/28/2019 08:38:0 1 Images reviewed and interpretation elvie hwang [facility] Cardiac Ultrasound Laboratory Danette A Hans [...] documented in this encounter Care Teams Oral Surgery Assistant Relationship Specialty Start Date End Date Lovely Vicente MD PCP - General 04/16/[address] [place] [address] documented as of this encounter
--- OUTSIDE RECORDS SUMMARY | 2022-04-06 10:37 | XMS_ITS | Encounter Summary ---
:1945 Author Organization [facility] [place] [address] Care Team Providers Name Role Phone Lovely Vicente MD Primary Care Provider Encounter Details Date Type Department Care Team Description 08/26/2018 Transcribe Orders Laboratory Lovely Vicente, Deferred diagnosis [facility] on axis I [address] [address] [place], [place] [phone] Social History Tobacco Use Types Packs/Day Years [...] Zulma Dolan MD [facility] [address] [place], [place] [address] (Wo rk) 05/28/2022 Laboratory Appointment Lab 05/28/2022 Office Visit Cardiology Zulma Dolan MD [facility] [place] [address] Liz Poole PA [facility] [place] [address] 06/10/2022 Office Visit Dermatology Laura Scherer MD [facility] DR [address] [place], [place] [address] (Wo rk) documented as of this encounter Visit Diagnoses Diagnosis Deferred diagnosis on axis I Other unknown and unspecified cause of m orbidity or mortality documented in this encounter Care Teams All Purpose Clerk Relationship Specialty Start Date End Date Lovely Vicente MD PCP - General 04/16/15 [facility] [address] [place] [address] documented as of this encounter
--- OUTSIDE RECORDS SUMMARY | 2022-04-06 10:37 | XMS_ITS | Encounter Summary ---
:1945 Author Organization [facility] [place] [address] Care Team Providers Name Role Phone Lovely Vicente MD Primary Care Provider Encounter Details Date Type Department Care Team Description 11/29/2017 Laboratory Lab 3L Barbara Chronic systoli c congestive heart failure; Appointment [facility] ASCVD (ar teriosclerotic cardiovascular disease); Hospital Cardiomyopathy, [place] [address] Social History Tobacco Use Types [...] Dolan MD [facility] er [address] [place], [place] [address] (Wo rk) 05/28/2022 Laboratory Appointment Lab 05/28/2022 Office Visit Cardiology Zulma Dolan MD [facility] [place] [address] Liz Poole PA [facility] [place] [address] 06/10/2022 Office Visit Dermatology Laura Scherer MD [facility] ER [address] [place], [place] [address] (Wo rk) documented as [...] Signature PT 23.0 (H) 9.4 - 12.5 [facility] LABORATORY INR 2.1 [facility] LABORATORY Comment: An INR [...] Organization Address City/State/[place] [address] (ABNORMAL) Basic Metabolic Panel (non-fasting) (11/29/2017 8:22 AM EDT) P athologist Signature Glucose Lvl 217 (H) 65 - 199 [facility] mg/dL [facility] LABORATORY Comment: Diabetes: >=200 mg/dL plus symp toms BUN 26 (H) 10 - 20 mg/dL [facility] LABORATORY Creatinine 0.96 0.80 - 1.50 [...] or in patients with acute kidney failure. [email or web address].JethroData/DHnkdep http://Capptain/DHMCnkf Specimen Anatomical Collection Method Collection Time Receive d Time (Source) Location / / Volume Laterality Blood specimen 11/29/2017 8:22 AM 018 8:29 (specimen) EDT AM EDT Resulting Agency Comment Spec In Lab Danette Maxwell APRN CHEMISTRY ORDERABLES Performing Organization Address City/State/[place] [address] (ABNORMAL) pro-Brain Natriuretic Peptide (11/29/2017 8:22 AM EDT) P athologist Signature ProBNP 1,769 (H) <=125 [facility] pg/mL [facility] LABORATORY Specimen Anatomical Collection Method Collection Time Receive d Time (Source) Location / / Volume Laterality Blood specimen 11/29/2017 8:22 AM 018 8:29 (specimen) EDT AM EDT Resulting Agency Comment Spec In Lab Danette Maxwell APRN CHEMISTRY ORDERABLES Performing Organization Address City/State/ZIP Code Phon e Number [address] Lavender Tube HOLD (11/29/2017 8:14 AM EDT) Patholo gist Method Time Signature Lavender Hold Sample in [facility] lab. [facility] LABORATORY Specimen Anatomical Collection Method Collection Time Receive d Time (Source) Location / / Volume Laterality Blood specimen No Charge / 11/29/2017 8:14 AM 018 8:29 (specimen) Unknown EDT AM EDT Lovely Vicente MD HEMATOLOGY ORDERABLES Performing Organization Address City/State/[place] [address] documented in this encounter Visit Diagnoses Diagnosis Chronic systolic congestive heart failur e Chronic systolic heart failure ASCVD (arteriosclerotic cardiovascular d isease) Unspecified cardiovascular disease Cardiomyopathy, ischemic Other specified forms of chronic ischemi c heart disease documented in this encounter Care Teams Vice President Of Business Development Relationship Specialty Start Date End Date Lovely Vicente MD PCP - General 04/16/[address] [place] [address] documented as of this encounter
--- OUTSIDE RECORDS SUMMARY | 2022-04-06 10:37 | XMS_ITS | Encounter Summary ---
:1945 Author Organization [facility] [place] [address] Care Team Providers Name Role Phone Lovely Vicente MD Primary Care Provider Encounter Details Date Type Department Care Team Description 07/28/2019 Laboratory Appointment Lab 3L [facility] [place] [phone] Social History Tobacco Use Types Packs/Day Years [...] Zulma Dolan MD [facility] er [place], [place] [address] (Wo rk) 05/28/2022 Laboratory Appointment Lab 05/28/2022 Office Visit Cardiology Zulma Dolan MD [facility] [place] [address] Liz Poole PA [facility] [place] [address] 06/10/2022 Office Visit Dermatology Laura Scherer MD [facility] [address] [place] [address] (Wo rk) documented as of this encounter [...] Organization Address City/State/[place] [address] (ABNORMAL) Basic Metabolic Panel (non-fasting) (07/28/2019 8:36 AM EST) athologist Signature Glucose Lvl 153 65 - 199 [facility] mg/dL [facility] [...] [facility] LAB[facility] Estimated GFR 70 >=60 mL/min/1.73 m?? [facility] LABORATORY Comment: The eGFR was calculated using the CKD-EP I equation. As with all creatinine based estimates of kidney function, eGFR values calculated with the CKD-EPI equation are not accurate in patients wi th acute kidney failure, extremes of body mass or the acutely ill. http://[employer]/VOLITIONRXnkf eGFR 81 >=60 mL/min/1.73 m?? [facility] LABORATORY Comment: The eGFR was calculated using the CKD-EP I equation. As with all creatinine based estimates of kidney function, eGFR values calculated with the CKD-EPI equation are not accurate in patients wi th acute kidney failure, extremes of body mass or the acutely ill. http://[employer]/[facility] OKLAHOMA CITYnkf Specimen Anatomical Collection Method Collection Time Receive d Time (Source) Location / / Volume Laterality Blood specimen 07/28/2019 8:36 AM 020 8:46 (specimen) EST AM EST Resulting Agency Comment Spec In Lab Danette Maxwell APRN CHEMISTRY ORDERABLES Performing Organization Address City/State/[place] [address] documented in this encounter Visit Diagnoses Diagnosis Chronic systolic heart failure documented in this encounter Care Teams Warper Tender Relationship Specialty Start Date End Date Lovely Vicente MD PCP - General 04/16/[address] [place] [address] documented as of this encounter
--- OUTSIDE RECORDS SUMMARY | 2022-04-06 10:37 | XMS_ITS | Encounter Summary ---
:1945 Author Organization [facility] [place] [address] Care Team Providers Name Role Phone Lovely Vicente MD Primary Care Provider Encounter Details Date Type Department Care Team Description 08/15/2018 Laboratory Lab 3L Katalina Chronic systoli c heart failure; Appointment [facility] ASCVD (ar teriosclerotic cardiovascular disease) [place] [address] Social History Tobacco Use Types [...] MD [facility] er [address] [place], [place] [address] (Wo rk) 05/28/2022 Laboratory Appointment Lab 05/28/2022 Office Visit Cardiology Zulma Dolan MD [facility] [place] [address] Liz Poole PA [facility] [place] [address] 06/10/2022 Office Visit Dermatology Laura Scherer MD [facility] ER [address] [place], [place] [address] (Wo rk) documented as of [...] Signature Glucose Lvl 116 65 - 199 [facility] mg/dL [facility] LABORATORY Comment: Diabetes: >=200 mg/dL plus symp toms BUN 21 (H) 10 - 20 mg/dL [facility] [...] 15 mmol/L [facility] LAB[facility] Calcium 9.0 8.5 - 10.5 [...] of body mass or the acutely ill. http://GridX/[facility]UNCANnkf eGFR 79 >=60 mL/min/1.73 m?? [facility] LABORATORY Comment: The eGFR was calculated using the CKD-EP I equation. As with all creatinine based estimates of kidney function, eGFR values calculated with the CKD-EPI equation are not accurate in patients wi th acute kidney failure, extremes of body mass or the acutely ill. http://GridX/[facility] DUNCANnkf Specimen Anatomical Collection Method Collection Time Receive d Time (Source) Location / / Volume Laterality Blood specimen 08/15/2018 8:04 AM 019 8:20 (specimen) EST AM EST Resulting Agency Comment Spec In Lab Danette Maxwell APRN CHEMISTRY ORDERABLES Performing Organization Address City/State/ZIP [place] [address] Lipid Panel (08/15/2018 8:04 AM EST) P athologist Signature Chol, Total 75 mg/dL [facility] LABORATORY Comment: Lower Risk: <200 mg/dL Average Risk: 200-239 mg/dL Higher Risk: >zw=751 mg/dL Triglycerides 185 mg/dL [facility] LABOR[facility] Comment: Average Risk/Lower Risk: <150 mg/dL Borderline High Risk: 150-199 mg/dL High Risk: 200-499 mg/dL Very High Risk: >yr=838 mg/dL HDL 32 mg/dL [facility] LABORATORY Comment: Males: ?? Higher Risk: <40 mg/dL Females: ?? HIgher Risk: <50 mg/dL LDL Cholesterol 6 mg/dL [facility] LABORATORY Comment: Lowest Risk: <100 mg/dL Lower Risk: 100-129 mg/dL Borderline High Risk: 130-159 mg/dL High Risk: 160-189 mg/dL Very High Risk: >dh=406 mg/dL Chol/HDL Ratio 2.3 ratio [facility] LABORATORY Lipid Interpretation See Note [facility] Comment: Lipid management should be guided by a p atient? s ASCVD risk, goals and preferences. ACC/AHA Guidelines recommend high intens ity statin if clinical ASCVD or LDL greater than or equal to 190 mg/dL. http://[employer]com/FES-ASP-Mmlrnmsyj Adults aged 40-75 with LDL 70-189 mg/dL should have their 10 year ASCVD risk estimated with the ACC/AHA ASCVD risk es timator http://tools.acc.org/DDRFH-Kciw-Xwdbpbiq r/ Statin should be discussed if risk [...] City/State/[place] [address] (ABNORMAL) pro-Brain Natriuretic Peptide (08/15/2018 8:04 AM EST) athologist Signature ProBNP 1,797 (H) <=125 [facility] pg[facility] LABORATORY Specimen Anatomical Collection Method Collection Time Receive d Time (Source) Location / / Volume Laterality Blood specimen 08/15/2018 8:04 AM 019 8:20 (specimen) EST AM EST Resulting Agency Comment Spec In Lab Danette Maxwell APRN CHEMISTRY ORDERABLES Performing Organization Address City/State/ZIP [place] [address] documented in this encounter Visit Diagnoses Diagnosis Chronic systolic heart failure ASCVD (arteriosclerotic cardiovascular d isease) Unspecified cardiovascular disease documented in this encounter Care Teams Acetone Button Paster Relationship Specialty Start Date End Date Lovely Vicente MD PCP - General 04/16/[address] [place] [address] documented as of this encounter
--- OUTSIDE RECORDS SUMMARY | 2022-04-06 10:37 | XMS_ITS | Encounter Summary ---
:1945 Author Organization [facility] [place] [address] Care Team Providers Name Role Phone Lovely Vicente MD Primary Care Provider Encounter Details Date Type Department Care Team Description 12/07/2021 Telephone Cardiology Eddi Briceño Jr., [facility] [place] [address] [facility] [phone] CARDIOLOGY DEPT [place], [place] [address] (Wo rk) Social History [...] the [facility] ED provider/staff member. Referring Location: [facility] Referring Provider: Marisela Dean, PACKAGE LIFT OPERATOR [address] [place] [address] Don Veda Kushal 76 y.o. w / [...] bpm, LAFB, poor R wave progression, septal TN, and lateral STD, overall no significantchange from [...] Zulma Dolan MD [facility] [place] [address] (Wo rk) 05/28/2022 Laboratory Appointment Lab 05/28/2022 Office Visit Cardiology Zulma Dolan MD [facility] [place] [address] Liz Poole PA [facility] [place] [address] 06/10/2022 Office Visit Dermatology Laura Scherer MD [facility] DR [address] [place], [place] [address] (Wo rk) documented as of this encounter Visit Diagnoses Not on filedocumented in this encounter Care Teams Sales Support Coordinator Relationship Specialty Start Date End Date Lovely Vicente MD PCP - General 04/16/15 [facility] [address] [place] [address] documented as of this encounter
--- OUTSIDE RECORDS SUMMARY | 2022-04-06 10:37 | XMS_ITS | Encounter Summary ---
:1945 Author Organization [facility] [place] [address] Care Team Providers Name Role Phone Lovely Vicente MD Primary Care Provider Reason for Referral Diagnostic Test (Routine) - Specialty Diagnoses / Procedures Referred By Contact Refer red To Contact Cardiology Diagnoses Chronic systolic heart failure Danette Maxwell APRN [facility] Non-Inv Card Lab Procedures Echocardiogram Transthoracic(Leb) [facility] [phone] [place] [address] Referral ID Status Reason Start Date Expiration Visits Visits Date Requested Authorized [id number] Specialty 08/15/2018 08/15/2018 1 1 Service Requested Reason for Visit Diagnostic Test (Routine) - Specialty Diagnoses / Procedures Referred By Contact Nawaf owen To Contact Cardiology Diagnoses Chronic systolic heart failure Danette Maxwell APRN [facility] Non-Inv Card Lab Procedures Echocardiogram Transthoracic(Leb) [facility] [place] [address] [place] [address] Referral ID Status Reason Start Date Expiration Visits Visits Date Requested Authorized [id number] Specialty 08/15/2018 08/15/2018 1 1 Service Requested Encounter Details Date Type Department Care Team Description 08/15/2018 Hospital Encounter Non-Invasive Danette Maxwell Chron ic systolic Cardiology Lab Barbara Gomes APRN heart failure [facility] [place] [address] [place] [phone] (Work) [phone] Social History Tobacco Use Types Packs/Day Years [...] Zulma Dolan MD [facility] [place], [place] [address] (Wo rk) 05/28/2022 Laboratory Appointment Lab 05/28/2022 Office Visit Cardiology Zulma Dolan MD [place] [address] Liz Poole PA [facility] [place] [address] 06/10/2022 Office Visit Dermatology Laura Scherer MD [facility] [address]DERMAT OLOG[place], [place] [address] (Wo rk) documented as [...] Mccollum ? (Age): 1945(73y) Med Rec#: ? [id number] ?Sex: ?M ? Site Loc: ? [facility] ?Ht / Wt: ??172(cm)/81(kg) Pt. Loc: ?Echo Lab ?BSA: ?1.94 Study Date: ?? 08/15/2018 ?Pt. Type: Outpatient Tape: ? Referring: MARY ELLEN Reading: Scott Ortega ([id number]) Database Tester: Laura Sargent Diagnosis: *Chronic systolic (congestive) [...] E-wave Vmax ?1.2 ?m/sec ? MV deceleration wuca409.4 ? msec ? MV A-wave Vmax ?0.7 [...] ? Mid-Inferior ?Hypokinetic ? Mid-Inferoseptal ?Hypokinetic ? Whigham-Septal ? Akinetic ? Whigham-Anterior ? Hypokinetic ? Whigham-Lateral ?Akinetic ? Whigham-Inferior ? Hypokinetic ? Whigham-Tip ?Akinetic ? This report has been electronically sign ed by: _ Scott Ortega M.D. ? 08/15/2018 08:17:26 Images reviewed and interpretation ver ied [facility] Cardiac Ultrasound Laboratory Procedure Note Scott Ortega MD - 08/15/2018Format ting of this note might be different from the original. Procedure: Transthoracic Echocardiogram Patient: NATALYA MCBRIDE(Age): [birth year]73y) Med Rec#: [id number] Sex: M Site Loc: [facility] Ht / Wt: 172(cm)/81(kg) Pt. Loc: Echo Lab BSA: 1.94 Study Date: 08/15/2018 Pt. Type: Outpati ent Tape: Referring: MARY ELLEN Reading: Scott Ortega ([id number]) Database Tester: Laura Sargent Diagnosis: *Chronic systolic (congestive) [...] MV E-wave Vmax 1.2 m/sec MV deceleration edln136.4 msec MV A-wave Vmax 0.7 m/sec MV [...] Akinetic Mid-Posterolateral Akinetic Mid-Inferior Hypokinetic Mid-Inferoseptal Hypokinetic Whigham-Septal Akinetic Whigham-Anterior Hypokinetic Whigham-Lateral Akinetic Whigham-Inferior Hypokinetic Whigham-Tip Akinetic This report has been electronically sign ed by: _ Scott Ortega M.D. 08/15/2018 08:17: 26 Images reviewed and interpretation verif ied [facility] Cardiac Ultrasound Laboratory Danette A Hans LOCK AND DAM REPAIRER ECHO ORDERABLES documented in this encounter Visit [...] Routine documented in this encounter Care Teams Solaris Administrator Relationship Specialty Start Date End Date Lovely Vicente MD PCP - General 04/16/[address] [place] [address] documented as of this encounter
--- OUTSIDE RECORDS SUMMARY | 2022-04-06 10:37 | XMS_ITS | Encounter Summary ---
:1945 Author Organization [facility] [place] [address] Care Team Providers Name Role Phone Lovely Vicente MD Primary Care Provider Reason for Visit Reason Comments Follow-up Skin Check Encounter Details Date Type Department Care Team Description 01/06/2018 Office Visit Dermatology at [facility]to Formantipmirna nevi; Abdelrahman HOOPER MD History of melanoma; [address] [facility] [place] [address] [facility] [place], [place] [address] Social History Tobacco Use Types [...] Dolan MD [facility] [address] [place], [place] [address] (Wo rk) 05/28/2022 Laboratory Appointment Lab 05/28/2022 Office Visit Cardiology Zulma Dolan MD [facility] [place] [place] [address] Liz Poole PA [facility] [place] [address] 06/10/2022 Office Visit Dermatology Laura Scherer MD [facility] [address]MAT [place], [place] [address] (Wo rk) documented as of this encounter Visit Diagnoses Diagnosis Multiple nevi Benign neoplasm of skin, site unspecifie d History of melanoma Personal history of malignant melanoma o f skin Seborrheic keratosis Other seborrheic keratosis documented in this encounter Care Teams Chief Operations Officer Relationship Specialty Start Date End Date Lovely Vicente MD PCP - General 04/16/[address] [place] [address] documented as of this encounter
--- OUTSIDE RECORDS SUMMARY | 2022-04-06 10:37 | XMS_ITS | Encounter Summary ---
:1945 Author Organization [facility] [place] [address] Care Team Providers Name Role Phone Lovely Vicente MD Primary Care Provider Reason for Visit Reason Comments Skin Check Encounter Details Date Type Department Care Team Description 07/06/2018 Office Visit Dermatology at Selina Garcia, Rigoberto Yarbrough (actinic keratosis); MD SHAY Quick III (seborrheic keratosis); [address] [facility] History of melanoma; [place] [address] Skin exam for malignant neoplasm [phone] [facility] [place], [place] [address] Social History Tobacco Use [...] leg - he had vascular surgery in [facility] while he lost several toes, they [...] Cardiology Zulma Dolan MD [facility] [address] [place], [place] [address] (Wo rk) 05/28/2022 Laboratory Appointment Lab 05/28/2022 Office Visit Cardiology Zulma Dolan [place] [facility] [place] [address] Liz Poole PA [facility] [place] [address] 06/10/2022 Office Visit Dermatology Laura Scherer MD [facility] [address] [place], [place] [address] (Wo rk) documented as of this encounter Visit Diagnoses Diagnosis AK (actinic keratosis) Actinic keratosis SK (seborrheic keratosis) Other seborrheic keratosis History of melanoma Personal history of malignant melanoma o f skin Skin exam for malignant neoplasm Screening for malignant neoplasm of the skin documented in this encounter Care Teams Postdoctoral Scholar Relationship Specialty Start Date End Date Lovely Vicente MD PCP - General 04/16/[address] [place] [address] documented as of this encounter
--- OUTSIDE RECORDS SUMMARY | 2022-04-06 10:37 | XMS_ITS | Encounter Summary ---
:1945 Author Organization [facility] [place] [address] Care Team Providers Name Role Phone Lovely Vicente MD Primary Care Provider Reason for Visit Reason Comments Establish Care Atrial Fibrillation Congestive Heart Failure Cardiomyopathy Encounter Details Date Type Department Care Team Description 09/06/2019 [facility] Ischem[facility] Osvaldo STRANGE [address] [place], [place] CARDIOLOGY DEPT. [address] [place] [address] [phone] Social History Tobacco Use Types Packs/Day Years [...] today For any questions, call my office: [phone] To access your health care information, go to the web at: [email or web address] (you will need to register) For educational materials: [email or web address] Karel TRAMMELL.[facility], Clinical Cardiac Electrophysiology, [facility], [facility] A Healthy Heart: After Your Visit Heart [...] least 2 servings of fish a week. Martin, mackerel, mcfadden, sardines, and chunk light tuna [...] irregular heartbeat. After you call 911, the telegraph operator may tell you to chew 1 [...] more? Visit our health information library at [email or web address]. You can also view health information on [employer], your personal patient account. Log in or sign up today. Enter F075 in the search box to learn more about A Healthy Heart: After Your Visit. ?? [phone] [employer] documented in this encounter Progress Notes Karel Mcelroy MD - 09/06/2019 2:20 PM EST Images from the original note were not included. Section of Cardiology/Cardiac Electrophysiology [facility] Clinical Cardiac Electrophysiology Consult Patient ID Don Fatima 1945 [id number] Don Fatima is referred to the EP clinic by Danette Maxwell APRN PhD Chief Complaint Dyspnea on exertion Ischemic cardiomyopathy History This is a 74 y.o. male following up/being seen in clinic for evaluation for ongoing anticoagulation. He has a Dcbtr3Wlvr score of ~ 6-7. 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, can walk [...] on phone: None Gets together: None Attends rastafari service: None Active member of club or [...] reviewed the ECG: sinus rhythm, 72 bpm, NE 140 ms, QRS 100 ms, QT 400 [...] EP clinic KAREL MCELROY MD Cardiac Electrophysiology [facility] T: [phone] F: [phone] minutes of this 40 minute encounter were spent in counselling, as described above Cc: MD Danette Cr APRN PhD Janett Espino DPM documented in this encounter Plan of Treatment Upcoming Encounters Date Type Specialty Care Team Description 05/28/2022 Appointment Cardiology Zulma Dolan MD [facility] [place], [place] [address] (Wo rk) 05/28/2022 Laboratory Appointment Lab 05/28/2022 Office Visit Cardiology Zulma Dolan MD [facility] [place] [address] Liz Poole PA [facility] [place] [address] 06/10/2022 Office Visit Dermatology Laura Scherer MD [facility] [address], [place] [address] (Wo rk) documented as of [...] 446 ms MUSE SYSTEM (Bezet) Calculated P Verdi 37 degrees MUSE SYSTEM Calculated R Verdi -23 degrees MUSE SYSTEM Calculated T Verdi 116 degrees MUSE SYSTEM INTERPRETATION Normal sinus rhythm MUSE SYSTEM Inferior infarct (cited on or before 25-JAN-2013) ST & T wave abnormality, consider anterolateral ischemia Abnormal ECG When compared with ECG of 19-AUG-2017 10:23, No significant change was found Confirmed by MD Cande, Michael ([id number]) on 09/08/2019 10:22:4 7 AM Specimen Anatomical [...] disease documented in this encounter Care Teams Foam Tank Laminator Relationship Specialty Start Date End Date Lovely Vicente MD PCP - General 04/16/[address] [place] [address] documented as of this encounter
--- OUTSIDE RECORDS SUMMARY | 2022-04-06 10:37 | XMS_ITS | Encounter Summary ---
:1945 Author Organization [facility] [place] [address] Care Team Providers Name Role Phone Lovely Vicente MD Primary Care Provider Reason for Visit Reason Onset Date Comments Follow-up 07/13/2018 amiodarone discontin ued Encounter Details Date Type Department Care Team Description 07/13/2018 Telephone Cardiology at [facility] Martha Comer, Follow-up (amiodarone [facility] RN discontin ued) [place] [address] Social History Tobacco Use Types Packs/Day [...] RN - 07/13/2018 8:57 AM EST Per OPTIONS TRADER Hans call placed to the home number for the pt. confirmed that the pt is still taking the amiodarone. Pt is to stop the amiodarone. Pt taking it for post op a-fib, therapy was supposed to be for 30 days. Message given to his . She will give him the message and will have him call with any questions. Call placed to the [facility] pharmacy in [place] to discontinue it there as well. Med list updated. documented in this encounter Plan of Treatment Upcoming Encounters Date Type Specialty Care Team Description 05/28/2022 Appointment Cardiology Zulma Dolan MD [facility] [address] [place], [place] [address] (Wo rk) 05/28/2022 Laboratory Appointment Lab 05/28/2022 Office Visit Cardiology Zulma Dolan MD [facility] [place] [address] Liz Poole PA [facility] [place] [address] 06/10/2022 Office Visit Dermatology Laura Scherer MD [facility] DR [address], [place] [address] (Wo rk) documented as of this encounter Visit Diagnoses Not on filedocumented in this encounter Care Teams Production Hardener Relationship Specialty Start Date End Date Lovely Vicente MD PCP - General 04/16/[address] [place] [address] documented as of this encounter
--- OUTSIDE RECORDS SUMMARY | 2022-04-06 10:37 | XMS_ITS | Encounter Summary ---
:1945 Author Organization [facility] [place] [address] Care Team Providers Name Role Phone Lovely Vicente MD Primary Care Provider Reason for Visit Auth/Cert Specialty Diagnoses / Procedures Referred By Contact Refer red To Contact Diagnoses NSTEMI Procedures emerg ipi Referral ID Status Reason Start Date Expiration Date Visits Requ ested Visits Authorized [id number] 1 1 Encounter Details Date Type Department Care Team Description 12/10/2021 Surgery News Library Director Asa Coulter MD CARDIAC CATHETERIZATION [facility] [place] [address] [place] [address] [phone] (Wo rk) Social History Tobacco Use Types [...] Don Fatima Patient Age: 76 y.o. Language: Kazakh Race: White Ethnicity: Not nor Admit date: [...] Peter PA-C Kelly LaFlamme PA-C Cardiovascular Medicine [phone] Discharge Diagnoses (Hospital Problems) and Secondary Diagnoses [...] 3.75 guiding catheter and a 3.5 Fr [place] 20 Mhz using Manual pullback. Imaging was successful. Image quality was good. The ostial LCX showed moderate diffuse atherosclerotic plaque with scattered three quadrant calcification. Measurements were performed after pre-dilation. Post Intervention: The stent was well expanded and apposed. Intravascular Ultrasound was performed in the distal LM using a 7 Fr EBU 3.75 guiding catheter and a 3.5 Fr [place] 20 Mhz using Manual pullback. Imaging was [...] require modification of this regimen. Consult [facility] Interventional Cardiology for questions. The 1 year [...] appointments: During 8am-5pm Wednesday through Wednesday call [phone] to speak with a nurse in the cardiology clinic All other times call [phone] and ask to speak to the quantitative analyst marketing rn bone marrow transplant. Return to work: One week Driving: No driving for 48 hours after catheterization. Follow up Appointments: PCP Lovely Vicente MD [phone] to see patient at the end of December for annual check up. Patient to see Dr. Lorenzana at 1120 am at December 19 for a post hospital check up. Business Representative Dr. De Oliveira to see you in [facility]. Left a message for office to set a date and time. Please call [phone] Nobles to see the patient for a same day cath in 2-3 weeks from now. Office to call with a date and time. For questions please call [phone] Home oxygen therapy: N/A Arrangements for VNA/home care: none Future Appointments and Orders Future Orders Complete By Expires Basic Metabolic Panel (non-fasting) [LAB15 Custom] 12/19/2021 (Approximate) 12/12/2022 Process Instructions: INCLUDES: Calcium, BUN, Creat, GFR, Glucose, Lytes Scheduling Instructions: Comments: Questions: Referral to Cardiac Rehab [[id number] Custom] As directed Process Instructions: If no [...] appointments: During 8am-5pm Wednesday through Wednesday call [phone] to speak with a nurse in the cardiology clinic All other times call [phone] and ask to speak to the quantitative analyst marketing rn bone marrow transplant. Return to work: One week Driving: No driving for 48 hours after catheterization. Follow up Appointments: PCP Lovely Vicente MD [phone] to see patient at the end of December for annual check up. Patient to see Dr. Lorenzana at 1120 am at December 19 for a post hospital check up. Business Representative Dr. De Oliveira to see you in [facility]. Left a message for office to set a date and time. Please call [phone] Nobles to see the patient for a same day cath in 2-3 weeks from now. Office to call with a date and time. 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 Tolerated procedure well. 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 Tolerated procedure well. Review of Systems: Review [...] ??? insulin lispro 1-6 Units Subcutaneous Q4H LZU ??? clopidogreL 75 mg Oral Daily ??? [...] Intake/Output Summary (Last 24 hours) at 12/11/2021 0979 Last data filed at 12/11/2021 0508 Gross [...] and answered his questions. Iker Cuevas MD [facility] Total time spent on review of records prior to visit, face to face time with patient during visit, documentation, and coordination of care with other clinicians: 25 minutes. . Iker Cuevas MD - 12/10/2021 12:30 PM EDT Images from the original note were not included. 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 Tolerated procedure well. Review of Systems: Review [...] Discussed with MD Migdalia Peter PA-C Pager #[phone] 12/10/2021 Cardiology Attending Note I have seen [...] updated and given pictures. Iker Cuevas MD [facility] Total time spent on review of records prior to visit, face to face time with patient during visit, documentation, and coordination of care with other clinicians: 35 minutes. Iker Cuevas MD - 12/09/2021 7:28 AM EDT Images from the original note were not included. 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 MAIN OR Significant Family History: [...] Monitor for ADRs. Trend troponins. Admission EKG. [facility] 12/09; consented. TTE. Telemetry monitoring, [...] code #Diet-carb control; n.p.o. after midnight for [facility] #DVT prophy- heparin infusion #GI prophy- PPI Discussed with MD Morgan Peter PA-C APP2 pager [phone] 12/08/2021 Cardiology Attending Note I have seen [...] know patient is here. Iker Cuevas MD [facility] documented in this encounter Miscellaneous [...] Type: *No Product type* / Secondary Insurance: [employer] [place] Prescription Coverage: Yes This plan was [...] cath without complications. Migdalia Parker PA-C Pager #[phone] 12/10/2021 Initial Assessments - Nick Georges RN [...] COVID test: Lab Results Component Value Date [id number] Not Detected 12/08/2021 Past medical History: Past [...] days) Any patient receiving care at [facility] must abide by [place] law. The hierarchy [...] (i) The agent with financial power of menhaden fishing crew member or a conservator appointed in accordance with [...] standard, cane - straight Home Address: [address] [place] [address] [place] [address] Social & Family Supports: All names listed below confirmed with patient as current and correct Extended Emergency Contact Information Primary Emergency Contact: Kisha Fatima Address: [address] [place] [address] [place] [address] [facility] Mobile Relation: Spouse Secondary Emergency Contact: Elba Swenson Address: [place], [place] [address] [place] [address] Mobile Relation: Child Current Care Provided by: [...] Type: *No Product type* / Secondary Insurance: [facility] Prescription Coverage: Yes Preferred Pharmacy: [facility] [place] [phone] [facility] [id number] - [place], [place] - [address] [place] [id number] [place] Status: Patient is a : unable to assess Primary Care Provider: Lovely Vicente MD [phone] Patient/Caregiver Goals of Treatment: Get out of here Potential Needs for Transition of Care: none Agency Referrals: none patient has used [facility] in the past Transportation: no concerns Transportation Anticipated: family or friend will provide Concerns to be Addressed: patient refuses services, discharge planning Assessment: Patient is admitted to [facility] Service pager [phone] for 76 y.o.??male??with h/o??CAD s/p 3vCABG (THOMPSON-LAD, [...] status on current unit. Nick Georges RN shingle trimmer, Office of Care Management Pager: [phone] Brief Op Note - Vitaliy Nobles MD - 12/10/2021 8:31 AM EDT Images from the original note were not included. Former[facility] [place] [address] CORONARY ANGIOGRAM AND PERCUTANEOUS CORONARY INTERVENTION REPORT Patient: Don Fatima : 1945 MR number: [id number] Date of Service: 12/10/2021 Sat Math Tutor: Vitaliy Nobles MD Fellow: Rancho Woods MD [...] andis managed by his PCP. Lives in [place], [place] with his . States that he [...] your patient Desirae Jett APRN Endocrinology Pager [phone] 70 minutes of this 80 minute visit [...] to remain on Med/Surg floor, please page [phone] for any further questions or concerns. LANDON [...] for further details. STEPHANIE Rebolledo 12/08/2021 Pager [phone] documented in this encounter Plan of Treatment Upcoming Encounters Date Type Specialty Care Team Description 05/28/2022 Appointment Cardiology Zulma Dolan MD [facility] [place], [place] [address] (Wo rk) 05/28/2022 Laboratory Appointment Lab 05/28/2022 Office Visit Cardiology Zulma Dolan MD [facility] [place] [address] Liz Poole PA [facility] [place] [address] 06/10/2022 Office Visit Dermatology Laura Scherer MD [facility] [address] TEJA [address] [place], [place] [address] (Wo rk) Scheduled Referrals Name [...] POC Glucose 215 (H) 65 - 199 [facility] mg/dL [facility] Comment: Supplemental ranges: <140 mg/dL before meals <180 mg/dL all other times of the day Specimen Anatomical Collection Method Collection Time Receive d Time (Source) Location / / Volume Laterality Blood 12/12/2021 7:42 AM 7:42 EDT AM EDT Ifeanyi Truong MD POINT OF CARE TEST ORDERABLE S Performing Organization Address City/State/[place] [address] (ABNORMAL) Differential, Automated (12/12/2021 4:51 AM EDT) athologist Signature Neutrophils % 75.4 % [facility] Neutr Abs (ANC) 5.95 1.70 - [facility] 6.10 [facility] x10(3)/[facility] LABORATORY Lymphocytes % 12.2 % [facility] Lymphocytes Abs 1.0 0.9 - 3.2 [facility] x10(3)/[facility] LABORATORY Monocytes % 9.5 % [facility] Monocyte Abs 0.8 0.3 - 0.9 [facility] x10(3)/[facility] LABORATORY Eosinophils % 1.8 % [facility] Eosinophils Abs 0.1 0.0 - 0.4 [facility] x10(3)/[facility] LABORATORY Basophils % 0.5 % [facility] Basophils Abs 0.0 0.0 - 0.1 [facility] x10(3)/[facility] LABORATORY Immature Gran % 0.60 % [facility] [...] Abs 0.05 (H) 0.00 - 0.04 x10(3)/[facility] LABORATORY Specimen Anatomical Collection Method Collection Time Receive d Time (Source) Location / / Volume Laterality Blood 12/12/2021 4:51 AM 05/20/202 2 5:06 EDT AM EDT Resulting Agency Comment Spec In Lab Bijan Sun MD HEMATOLOGY ORDERABLES Performing Organization Address City/State/ZIP Code Phon e Number [address] (ABNORMAL) Hemogram (12/12/2021 4:51 AM EDT) Analysis Performed At Patho logist Time Signature WBC 7.9 4.0 - 9.5 [facility](3[facility] LABORATORY RBC 4.19 (L) 4.58 - [place] 5.54 [facility] x10(6)/[facility] LABORATORY Hemoglobin 12.1 (L) 13.7 - [facility] 16.5 g/dL [facility] Hematocrit 36.7 (L) 40.5 - [facility] 48.5 % [facility] MCV 87.6 82.9 - [facility] 93.1 [facility] LABORATORY MCH 28.9 27.5 - [place] 32.1 pg [facility] MCHC 33.0 32.0 - [place] 35.7 g/dL [facility] Platelets 231 145 - 357 [facility] x10(3)/[facility] LABORATORY RDWSD 47.2 (H) 36.0 - [facility] 45.0 [facility] LABORATORY RDWCV 14.6 (H) 11.4 - [facility] 13.8 % [facility] MPV 9.5 7.6 - 12.9 [facility] nRBC % Auto 0.0 % [facility] nRBC Abs Auto 0.000 0.000 - [place] 0.000 [facility] x10(3)/[facility] LABORATORY Specimen Anatomical Collection Method Collection Time Receive d Time (Source) Location / / Volume Laterality Blood 12/12/2021 4:51 AM 2 5:06 EDT AM EDT Resulting Agency Comment Spec In Lab Bijan Sun MD HEMATOLOGY ORDERABLES Performing Organization Address City/State/ZIP Code Phon e Number [place], [place] [id number] [place] [address] (ABNORMAL) Prothrombin Time (12/12/2021 4:51 AM EDT) athologist Signature PT 14.9 (H) 9.4 - 12.5 [facility] sec [facility] INR 1.3 [facility] Comment: An INR <2.0 [...] City/State/[place] [address] (ABNORMAL) BMP w/fasting Glucose (12/12/2021 4:51 AM EDT) athologist Signature Glucose 152 (H) 65 - 99 [facility] Fasting mg/dL [facility] Comment: ?Fasting* Glucose Interpretive C [...] of Diabetes Mellitus, Position Statement from the [place] [employer]. ??Diabete s Care, Volume 33, [...] estions. Chloride 105 98 - 107 mmol/L [facility] CO2 21 (L) 22 - 31 mmol/L [facility] Anion Gap 17 (H) 5 - 15 mmol/L [facility] LABORATORY Calcium 8.9 8.5 - 10.5 mg/dL [facility] LABORATORY Estimated GFR 38 (L) >=60 mL/min/1.73 m?? [facility] [...] Organization Address City/State/[place] [address] Magnesium (12/12/2021 4:51 AM EDT) athologist Signature Magnesium 1.02 0.69 - 1.07 [facility]/L [facility] Specimen Anatomical Collection Method Collection Time Receive d Time (Source) Location / / Volume Laterality Blood 12/12/2021 4:51 AM 2 5:06 EDT AM EDT Resulting Agency Comment Spec In Lab Iker Cuevas MD CHEMISTRY ORDERABLES Performing Organization Address City/State/ZIP Code Phon e Number [address] POCT Glucose (12/12/2021 3:43 AM EDT) athologist Signature POC Glucose 138 65 - 199 [place] mg/dL [facility] Comment: Supplemental ranges: <140 mg/dL before meals <180 mg/dL all other times of the day Specimen Anatomical Collection Method Collection Time Receive d Time (Source) Location / / Volume Laterality Blood 12/12/2021 3:43 AM 2 3:43 EDT AM EDT Iker Cuevas MD POINT OF CARE TEST ORDERABLE S Performing Organization Address City/State/ZIP Code Phon e Number [address] POCT Glucose (12/11/2021 11:44 PM EDT) athologist Signature POC Glucose 124 65 - 199 [facility] mg/dL [facility] Comment: Supplemental ranges: <140 mg/dL before meals <180 mg/dL all other times of the day Specimen Anatomical Collection Method Collection Time Receive d Time (Source) Location / / Volume Laterality Blood 12/11/2021 11:44 12/11/2021 PM EDT 11:44 PM EDT Iker Cuevas MD POINT OF CARE TEST ORDERABLE S Performing Organization Address City/State/ZIP Code Phon e Number [address] (ABNORMAL) POCT Glucose (12/11/2021 8:12 PM EDT) athologist Signature POC Glucose 200 (H) 65 - 199 [place] mg/dL [facility] Comment: Supplemental ranges: <140 mg/dL before meals <180 mg/dL all other times of the day Specimen Anatomical Collection Method Collection Time Receive d Time (Source) Location / / Volume Laterality Blood 12/11/2021 8:12 PM 2 8:12 EDT PM EDT Iker Cuevas MD POINT OF CARE TEST ORDERABLE S Performing Organization Address City/State/[place] [address] (ABNORMAL) POCT Glucose (12/11/2021 6:50 PM EDT) athologist Signature POC Glucose 245 (H) 65 - 199 [place] mg/dL [facility] Comment: Supplemental ranges: <140 mg/dL before meals <180 mg/dL all other times of the day Specimen Anatomical Collection Method Collection Time Receive d Time (Source) Location / / Volume Laterality Blood 12/11/2021 6:50 PM 2 6:50 EDT PM EDT Iker Cuevas MD POINT OF CARE TEST ORDERABLE S Performing Organization Address City/State/[place] [address] (ABNORMAL) POCT Glucose (12/11/2021 4:00 PM EDT) athologist Signature POC Glucose 383 (H) 65 - 199 [place] mg/dL [facility] Comment: Supplemental ranges: <140 mg/dL before meals <180 mg/dL all other times of the day Specimen Anatomical Collection Method Collection Time Receive d Time (Source) Location / / Volume Laterality Blood 12/11/2021 4:00 PM 2 4:00 EDT PM EDT Iker Cuevas MD POINT OF CARE TEST ORDERABLE S Performing Organization Address City/State/[place] [address] (ABNORMAL) POCT Glucose (12/11/2021 12:01 PM EDT) athologist Signature POC Glucose 342 (H) 65 - 199 [place] mg/dL [facility] Comment: Supplemental ranges: <140 mg/dL before meals <180 mg/dL all other times of the day Specimen Anatomical Collection Method Collection Time Receive d Time (Source) Location / / Volume Laterality Blood 12/11/2021 12:01 12/11/2021 PM EDT 12:01 PM EDT Iker Cuevas MD POINT OF CARE TEST ORDERABLE S Performing Organization Address City/State/ZIP Code [place] [address] COVID-19 PCR (12/11/2021 10:13 AM EDT) [facility] Method Time Signature SARS-CoV-2 Not Detected Not Detected [place] RNA [facility]OR[facility] Comment: This result should be interpreted [...] diagnosis of COVID-19 is performed using the [employer] RONNA S-CoV-2 Assay as authorized by the FDA Emergency Use Authorization (EUA). This EUA assay is intended for In-vitro Diagnostic (IVD) use with respiratory sp ecimens such as nasopharyngeal swabs collected from individuals during the ac [place] phase of infection. This assay is performed based on the instructions for use provided by [employer] and additional guidance provided by CDC and FDA. Testing is performed in the Clinical Genomics and Advanced Technolog y Laboratory within the Department of Pathology and Laboratory Medicine at [facility], certified under the Clinical Laboratory Improvement Amendments [...] required or requested by public health a [facility], positive specimens may be sent for [...] clinical management guidance information are available at [facility] Coronavirus Disease 2019 (COVID-19) webpage under Information fo r Healthcare Professionals (https://www.cdc.gov/coronavirus/2019-nc ov/hcp/index.html) Additional information about this and ot her EUA tests can be found in provider and patient fact sheets at the following FDA website: https://www.fda.gov/medical-devices/wxryfpjjvsg-cnupgsk-6374-unayo-83-axbfacnrs- qxm-uqnacswwjmlggz-gmbuomh-devices/giulx-blhxsvfzszy-zssh SARS-Cov-2 RNA Source RETAIL SALESWORKER Swab [facility] LABORATORY Specimen (Source) Anatomical Collection Method Collection Time Re ceived Time Location / / Volume Laterality Nasopharyngeal Swab 12/11/2021 10:13 0503/2022 AM EDT 11:16 AM EDT Comment: Symptoms->Surveillance Resulting Agency Comment Spec In Lab Iker Cuevas MD MICROBIOLOGY - GENERAL ORDER [place] Performing Organization Address City/State/[place] [address] POCT Glucose (12/11/2021 7:34 AM EDT) athologist Signature POC Glucose 198 65 - 199 [facility] mg/dL [facility] Comment: Supplemental ranges: <140 mg/dL before meals <180 mg/dL all other times of the day Specimen Anatomical Collection Method Collection Time Receive d Time (Source) Location / / Volume Laterality Blood 12/11/2021 7:34 AM 2 7:34 EDT AM EDT Iker Cuevas MD POINT OF CARE TEST ORDERABLE S Performing Organization Address City/State/[place] [address] (ABNORMAL) POCT Glucose (12/11/2021 5:07 AM EDT) P athologist Signature POC Glucose 208 (H) 65 - 199 [facility] mg/dL [facility] Comment: Supplemental ranges: <140 mg/dL before meals <180 mg/dL all other times of the day Specimen Anatomical Collection Method Collection Time Receive d Time (Source) Location / / Volume Laterality Blood 12/11/2021 5:07 AM 2 5:07 EDT AM EDT Iker Cuevas MD POINT OF CARE TEST ORDERABLE S Performing Organization Address City/State/[place] [address] (ABNORMAL) Differential, Automated (12/11/2021 4:28 AM EDT) Patholo gist Method Time Signature Neutrophils % 79.6 % [facility] Neutr Abs (ANC) 7.01 (H) 1.70 - [facility] 6.10 [facility] x10(3)/[facility] LABORATORY Lymphocytes % 9.1 % [facility] Lymphocytes Abs 0.8 (L) 0.9 - 3.2 [facility] x10(3)/[facility] LABORATORY Monocytes % 9.2 % [facility] Monocyte Abs 0.8 0.3 - 0.9 [facility] x10(3)/[facility] LABORATORY Eosinophils % 1.3 % [facility] Eosinophils Abs 0.1 0.0 - 0.4 [facility] x10(3)/[facility] LABORATORY Basophils % 0.5 % [facility] Basophils Abs 0.0 0.0 - 0.1 [facility] x10(3)/[facility] LABORATORY Immature Gran [...] Melisa Gran Abs 0.03 0.00 - 0.04 x10(3)/[facility] LABORATORY Specimen Anatomical Collection Method Collection Time Receive d Time (Source) Location / / Volume Laterality Blood 12/11/2021 4:28 AM 4:37 EDT AM EDT Resulting Agency Comment Spec In Lab Bijan Sun MD HEMATOLOGY ORDERABLES Performing Organization Address City/State/ZIP Code Phon e Number [place] [id number] (ABNORMAL) Hemogram (12/11/2021 4:28 AM EDT) Analysis Performed At Patho logist Time Signature WBC 8.8 4.0 - 9.5 [facility] x10(3)/[facility] LABORATORY RBC 4.15 (L) 4.58 - [facility] 5.54 [facility] x10(6)/[facility] LABORATORY Hemoglobin 11.9 (L) 13.7 - [facility] 16.5 g/dL [facility] Hematocrit 36.9 (L) 40.5 - [facility] R[facility] 48.5 % [facility] MCV 88.9 82.9 - [facility] 93.1 [facility] LABORATORY MCH 28.7 27.5 - BARBARA RYAN 32.1 pg [facility] LABORATORY MCHC 32.2 32.0 - [facility] 35.7 g/dL [facility] LAB[facility]ATORY Platelets 211 145 - 357 [facility] LABORATORY RDWSD 48.3 (H) 36.0 - BARBARA RYAN 45.0 [facility] LABORATORY RDWCV 14.8 (H) 11.4 - [facility] 13.8 % [facility] LABORATORY MPV 9.6 7.6 - 12.9 [facility] LABORATORY nRBC % Auto 0.0 % [facility] LABORATORY nRBC Abs Auto 0.000 0.000 - [facility] 0.000 [facility] x10(3)/[facility] LABORATORY Specimen Anatomical Collection Method Collection Time Receive d Time (Source) Location / / Volume Laterality Blood 12/11/2021 4:28 AM 2 4:37 EDT AM EDT Resulting Agency Comment Spec In Lab Bijan Sun MD HEMATOLOGY ORDERABLES Performing Organization Address City/[facility] [address] (ABNORMAL) Prothrombin Time (12/11/2021 4:28 AM EDT) P athologist Signature PT 17.7 (H) 9.4 - 12.5 [facility] LABORATORY INR 1.6 [facility] LABORATORY Comment: An INR <2.0 [...] MD HEMATOLOGY ORDERABLES Performing Organization Address City/[facility]/ZIP Code Phon e Number [place] [id number]OS[address]ORY [address] (ABNORMAL) BMP w/fasting Glucose (12/11/2021 4:28 AM EDT) P athologist Signature Glucose 207 (H) 65 - 99 [facility] Fasting mg/dL [facility] LABORATORY Comment: ?Fasting* Glucose Interpretive C [...] of Diabetes Mellitus, Position Statement from the [employer] [employer]. ??Diabete s Care, Volume 33, [...] Estimated GFR 48 (L) >=60 mL/min/1.73 m?? [facility] LABORATORY [...] City/[facility]/[place] [address] Magnesium (12/11/2021 4:28 AM EDT) athologist Signature Magnesium 1.04 0.69 - 1.07 [facility] mmol/L [facility] LABORATORY Specimen Anatomical Collection Method Collection Time Receive d Time (Source) Location / / Volume Laterality Blood 12/11/2021 4:28 AM 2 4:37 EDT AM EDT Resulting Agency Comment Spec In Lab Iker Cuevas MD CHEMISTRY ORDERABLES Performing Organization Address City/[facility]/[place] [address] POCT Glucose (12/11/2021 3:58 AM EDT) athologist Signature POC Glucose 189 65 - 199 [place]YAN mg/dL [facility] LABORATORY Comment: Supplemental ranges: <140 mg/dL before meals <180 mg/dL all other times of the day Specimen Anatomical Collection Method Collection Time Receive d Time (Source) Location / / Volume Laterality Blood 12/11/2021 3:58 AM 2 3:58 EDT AM EDT Iker Cuevas MD POINT OF CARE TEST ORDERABLE S Performing Organization Address City/[facility]/ZIP Code Phon e Number [address] (ABNORMAL) POCT Glucose (12/10/2021 11:45 PM EDT) athologist Signature POC Glucose 205 (H) 65 - 199 [place] [facility]Y[place] mg/dL [facility] LABORATORY Comment: Supplemental ranges: <140 mg/dL before meals <180 mg/dL all other times of the day Specimen Anatomical Collection Method Collection Time Receive d Time (Source) Location / / Volume Laterality Blood 12/10/2021 11:45 12/10/2021 PM EDT 11:45 PM EDT Iker Cuevas MD POINT OF CARE TEST ORDERABLE S Performing Organization Address City/[facility]/[place] [address] (ABNORMAL) POCT Glucose (12/10/2021 7:54 PM EDT) athologist Signature POC Glucose 225 (H) 65 - 199 [facility] mg/dL [facility] LABOR[facility]ORY Comment: Supplemental ranges: <140 mg/dL before meals <180 mg/dL all other times of the day Specimen Anatomical Collection Method Collection Time Receive d Time (Source) Location / / Volume Laterality Blood 12/10/2021 7:54 PM 2 7:54 EDT PM EDT Iker Cuevas MD POINT OF CARE TEST ORDERABLE S Performing Organization Address City/[facility]/ZIP [facility] [place] [address] Potassium (12/10/2021 7:46 PM EDT) athologist Signature Potassium 4.2 3.5 - 5.0 [facility] mmol/L [facility] LABORATORY Comment: Please note: ??Patients with [...] ORDERABLES Performing Organization Address City/[facility]/ZIP [facility] [place] [address] (ABNORMAL) Basic Metabolic Panel (non-fasting) (12/10/2021 6:12 PM EDT) athologist Signature Glucose Lvl 246 (H) 65 - 199 [facility] mg/dL [facility] LABORATORY [...] - 107 mmol/L [facility] LABORATORY CO2 22 22 - 31 mmol/L [facility] LABORATORY [...] Address City/State/ZIP Code Phon e Number [address] POCT Glucose (12/10/2021 4:59 PM EDT) P athologist Signature POC Glucose 158 65 - 199 [place] [place] mg/dL [facility] LABORATORY Comment: Supplemental ranges: <140 mg/dL before meals <180 mg/dL all other times of the day Specimen Anatomical Collection Method Collection Time Receive d Time (Source) Location / / Volume Laterality Blood 12/10/2021 4:59 PM 2 4:59 EDT PM EDT Iker Cuevas MD POINT OF CARE TEST ORDERABLE S Performing Organization Address City/[facility]/[place] [address] (ABNORMAL) POCT Glucose (12/10/2021 12:43 PM EDT) P athologist Signature POC Glucose 241 (H) 65 - 199 [facility] mg/dL [facility] LABORATORY Comment: Supplemental ranges: <140 mg/dL before meals <180 mg/dL all other times of the day Specimen Anatomical Collection Method Collection Time Receive d Time (Source) Location / / Volume Laterality Blood 12/10/2021 12:43 12/10/2021 PM EDT 12:43 PM EDT Iker Cuevas MD POINT OF CARE TEST ORDERABLE S Performing Organization Address City/State/[place] [address] EKG 12 Lead (12/10/2021 11:17 AM EDT) Component Value Ref Range Test Analysis Performed Pathologis t Method Time At Signature Ventricular rate 62 BPM MUSE SYSTEM Atrial Rate 62 BPM MUSE SYSTEM P-R Interval 142 ms MUSE SYSTEM QRS Duration 100 ms MUSE SYSTEM Q-T Interval 434 ms MUSE SYSTEM QTC Calculated 440 ms MUSE SYSTEM (Bezet) Calculated P Perry 34 degrees MUSE SYSTEM Calculated R Perry -39 degrees MUSE SYSTEM Calculated T Perry 92 degrees MUSE SYSTEM INTERPRETATION Normal sinus [...] Laterality Volume Narrative 12/10/2021 12:04 PM EDT ?[facility] ? Cardiac Cathete rization/Intervention Report ? Patient Name: Don Fatima. ? Procedure Date: 12/10/2021 ? A #: [id number] ? Primary Physician: Nobles, Vitaliy P ? Case #: [id number] ? File Name: [id number] ? Catheterization Order Number: [id number] ? [facility] ? Final Report [place], [place] ? Patient Name: ? Don E. Stewa rt ? ID#: ?[id number] ? : ?1945 ? Procedure Date: ? [...] procedure was Urgent. The indication for ?the labeling machine operator visit is ACS great er than 24 [...] ?3.75 guiding catheter and a 3.5 Fr [facility] [place] 20 Mhz using Manual ?pullback. ??Imaging was [...] ?3.75 guiding catheter and a 3.5 Fr [facility] [place] 20 Mhz using Manual ?pullback. ??Imaging was [...] Antiplatelet (DAPT) Recommendations : ?Drug eluting stent (TUKCER) insert ed. ?P2Y12 Loading dose Prasugrel 60 [...] require ?modification of this regimen. C [facility] Interventional Cardiology for ?questions. ?The 1 year [...] - 01/14/2022 [facility] Cardiac Catheterization/Intervention Re port Patient Name: Don Fatima Procedure Date: 12/10/2021 A #: [id number] Primary Physician: Vitaliy Nobles Case #: [id number] File Name: [id number] Catheterization Order Number: [id number] [facility] Final Report [place], [place] Patient Name: Don Fatima ID#: [...] was designated as ASA Class III. The [facility] c linical frailty scale is 5: [...] e was Urgent. The indication for the labeling machine operator visit is ACS greater than 24 hrs [...] and a 3.5 Fr [facility] [place] 20 Mhz using Manual pullback. Imaging was [...] and a 3.5 Fr [facility] [place] 20 Mhz using Manual pullback. Imaging was [...] require modification of this regimen. Consult D [facility] Interventional Cardiology for questions. The 1 year [...] POC Glucose 262 (H) 65 - 199 [facility] mg/dL [facility] LABORATORY Comment: Supplemental ranges: <140 mg/dL before meals <180 mg/dL all other times of the day Specimen Anatomical Collection Method Collection Time Receive d Time (Source) Location / / Volume Laterality Blood 12/10/2021 10:30 12/10/2021 AM EDT 10:30 AM EDT Iker Cuevas MD POINT OF CARE TEST ORDERABLE S Performing Organization Address City/State/[place] [address] (ABNORMAL) POCT Glucose (12/10/2021 9:48 AM EDT) P athologist Signature POC Glucose 279 (H) 65 - 199 [facility] mg/dL [facility] LABORATORY Comment: Supplemental ranges: <140 mg/dL before meals <180 mg/dL all other times of the day Specimen Anatomical Collection Method Collection Time Receive d Time (Source) Location / / Volume Laterality Blood 12/10/2021 9:48 AM 2 9:48 EDT AM EDT Iker Cuevas MD POINT OF CARE TEST ORDERABLE S Performing Organization Address City/[facility]/[place] [address] (ABNORMAL) POCT Glucose (12/10/2021 9:07 AM EDT) P athologist Signature POC Glucose 268 (H) 65 - 199 [facility] mg/dL [facility] LABORATORY Comment: Supplemental ranges: <140 mg/dL before meals <180 mg/dL all other times of the day Specimen Anatomical Collection Method Collection Time Receive d Time (Source) Location / / Volume Laterality Blood 12/10/2021 9:07 AM 2 9:07 EDT AM EDT Iker Cuevas MD POINT OF CARE TEST ORDERABLE S Performing Organization Address City/State/[place] [address] (ABNORMAL) Point of Care Blood Gas Historical (12/10/2021 9:04 AM EDT) Patholo gist Method Time Signature POC pH 7.40 7.35 - [facility] 7.45 [facility] LABORATORY POC PCO2 40 35 - 45 [facility] LABORATORY POC PO2 63 (L) 85 - 104 [facility] LABORATORY POC Base Excess 0.0 -3.0 - 3.0 [facility] K mmol/L [facility] LABORATORY POC HCO3 24.8 20.0 - [facility] 26.0 [facility] P[facility] Sodium 143 135 - 145 [facility] mmol/L [facility] LABORATORY POC Potassium 3.7 3.5 - 5.0 [facility] mmol/L [facility] LABORATORY POC Ionized Ca 1.07 (L) 1.15 - [facility] 1.33 [facility] POC Hematocrit 30.0 (L) 40.0 - [facility] 51.0 % [facility] LABORATORY POC Calc Hgb 10.2 (L) 13.7 - [facility] 17.5 g/dL [facility] LABORATORY Comment: The calculation of hemoglobin f rom hematocrit assumes a normal MCHC. POC Bgas Loc CC LAB [facility] LABORATORY Specimen Anatomical Collection Method Collection Time Receive d Time (Source) Location / / Volume Laterality Blood 12/10/2021 9:04 AM 2 EDT 12:00 PM EDT Ifeanyi Truong MD CHEMISTRY ORDERABLES Performing Organization Address City/State/[place] [address] (ABNORMAL) POCT Glucose (12/10/2021 7:19 AM EDT) P athologist Signature POC Glucose 274 (H) 65 - 199 [facility] mg/dL [facility] LABORATORY Comment: Supplemental ranges: <140 mg/dL before meals <180 mg/dL all other times of the day Specimen Anatomical Collection Method Collection Time Receive d Time (Source) Location / / Volume Laterality Blood 12/10/2021 7:19 AM 2 7:19 EDT AM EDT Iker Cuevas MD POINT OF CARE TEST ORDERABLE S Performing Organization Address City/State/[place] [address] Heparin (unfractionated) Level (12/10/2021 4:25 AM EDT) P athologist Signature Heparin UFH 0.69 IU/mL [facility] LABORATORY Comment: Heparin (anti-Xa) levels should be [...] City/State/ZIP Code Phon e Number [place] [phone]OS[address] LAB[address]ORY Drive (ABNORMAL) Differential, Automated (12/10/2021 4:25 AM EDT) Patholo gist Method Time Signature Neutrophils % 79.8 % [facility] LABORATORY Neutr Abs (ANC) 7.47 (H) 1.70 - [facility] 6.10 [facility] x10(3)/[facility] LABORATORY Lymphocytes % 10.6 % [facility] LABORATORY Lymphocytes Abs 1.0 0.9 - 3.2 [facility] x10(3)/[facility] LABORATORY Monocytes % 8.4 % [facility] LABORATORY Monocyte Abs 0.8 0.3 - 0.9 [facility] x10(3)/[facility] LABORATORY Eosinophils % 0.6 % [facility] LABORATORY Eosinophils Abs 0.1 0.0 - 0.4 [facility] x10(3)/[facility] LABORATORY Basophils % 0.2 % [facility] LABORATORY Basophils Abs 0.0 0.0 - 0.1 [facility] x10(3)/[facility] LABORATORY Immature Gran [...] Melisa Gran Abs 0.04 0.00 - 0.04 x10(3)/[facility] LABORATORY Specimen Anatomical Collection Method Collection Time Receive d Time (Source) Location / / Volume Laterality Blood 12/10/2021 4:25 AM 4:34 EDT AM EDT Resulting Agency Comment Spec In Lab Morgan BROWN HEMATOLOGY ORDERABLES Performing Organization Address City/State/[place] [address] (ABNORMAL) Hemogram (12/10/2021 4:25 AM EDT) Analysis Performed At Patho logist Time Signature WBC 9.4 4.0 - 9.5 [facility] x10(3)/[facility] LABORATORY RBC 3.81 (L) 4.58 - [facility] 5.54 [facility] x10(6)/[facility] LABORATORY Hemoglobin 11.1 (L) 13.7 - [facility] 16.5 g/dL [facility] LABORATORY Hematocrit 34.0 (L) 40.5 - [facility] 48.5 % [facility] LABORATORY MCV 89.2 82.9 - [facility] 93.1 [facility] LABORATORY MCH 29.1 27.5 - [facility] 32.1 pg [facility] LABORATORY MCHC 32.6 32.0 - [facility] 35.7 g/dL [facility] LABORATORY Platelets 183 145 - 357 [facility] x10(3)/[facility] LABORATORY RDWSD 49.9 (H) 36.0 - [facility] 45.0 [facility] LABORATORY RDWCV 15.2 (H) 11.4 - [facility] 13.8 % [facility] LABORATORY MPV 9.8 7.6 - 12.9 [facility] LABORATORY nRBC % Auto 0.0 % [facility] LABORATORY nRBC Abs Auto 0.000 0.000 - BARBARA DAVIS 0.000 [facility] x10(3)/[facility] LABORATORY Specimen Anatomical Collection Method Collection Time Receive d Time (Source) Location / / Volume Laterality Blood 12/10/2021 4:25 AM 2 4:34 EDT AM EDT Resulting Agency Comment Spec In Lab Morgan BROWN HEMATOLOGY ORDERABLES Performing Organization Address City/[facility]/ZIP [facility] Phon e Number [address] (ABNORMAL) Prothrombin Time (12/10/2021 4:25 AM EDT) P athologist Signature PT 20.0 (H) 9.4 - 12.5 [facility] LABORATORY INR 1.7 [facility] LABORATORY Comment: An INR <2.0 [...] MD HEMATOLOGY ORDERABLES Performing Organization Address City/[facility]/[place] [address] (ABNORMAL) BMP w/fasting Glucose (12/10/2021 4:25 AM EDT) P athologist Signature Glucose 210 (H) 65 - 99 [facility] Fasting mg/dL [facility] LABORATORY Comment: ?Fasting* Glucose Interpretive C [...] of Diabetes Mellitus, Position Statement from the [place] [employer]. ??Diabete s Care, Volume 33, [...] Estimated GFR 44 (L) >=60 mL/min/1.73 m?? [facility] LABORATORY [...] City/[facility]/ZIP Code Phon e Number [address] Magnesium (12/10/2021 4:25 AM EDT) athologist Signature Magnesium 0.95 0.69 - 1.07 [facility] mmol/L [facility] LABORATORY Specimen Anatomical Collection Method Collection Time Receive d Time (Source) Location / / Volume Laterality Blood 12/10/2021 4:25 AM 2 4:34 EDT AM EDT Resulting Agency Comment Spec In Lab Iker Cuevas MD CHEMISTRY ORDERABLES Performing Organization Address City/[facility]/[place] [address] POCT Glucose (12/10/2021 1:58 AM EDT) athologist Signature POC Glucose 164 65 - 199 [place] RY[place] mg/dL [facility] LABORATORY Comment: Supplemental ranges: <140 mg/dL before meals <180 mg/dL all other times of the day Specimen Anatomical Collection Method Collection Time Receive d Time (Source) Location / / Volume Laterality Blood 12/10/2021 1:58 AM 2 1:58 EDT AM EDT Iker Cuevas MD POINT OF CARE TEST ORDERABLE S Performing Organization Address City/[facility]/ZIP Code Phon e Number [address] (ABNORMAL) POCT Glucose (12/09/2021 9:02 PM EDT) athologist Signature POC Glucose 313 (H) 65 - 199 [place] RYAN mg/dL [facility] LABORATORY Comment: Supplemental ranges: <140 mg/dL before meals <180 mg/dL all other times of the day Specimen Anatomical Collection Method Collection Time Receive d Time (Source) Location / / Volume Laterality Blood 12/09/2021 9:02 PM 2 9:02 EDT PM EDT Iker Cuevas MD POINT OF CARE TEST ORDERABLE S Performing Organization Address City/[facility]/[place] [address] Heparin (unfractionated) Level (12/09/2021 7:30 PM EDT) athologist Signature Heparin UFH 0.48 IU/mL [facility] LABORATORY Comment: Heparin (anti-Xa) levels should be [...] Organization Address City/State/[place] [address] (ABNORMAL) Basic Metabolic Panel (non-fasting) (12/09/2021 7:30 PM EDT) athologist Signature Glucose Lvl 372 (H) 65 - 199 [facility]/dL [facility] LABORATORY Comment: Diabetes: [...] - 107 mmol/L [facility] LABORATORY CO2 22 22 - 31 mmol/L [facility] LABORATORY Anion Gap 14 5 - 15 mmol/L [facility] LABORATORY Calcium 8.1 (L) 8.5 - 10.5 mg/dL [facility] LABORATORY Estimated GFR 37 (L) >=60 mL/min/1.73 m?? [facility] LABORATORY [...] Organization Address City/State/[place] [address] (ABNORMAL) POCT Glucose (12/09/2021 6:34 PM EDT) athologist Signature POC Glucose 408 (H) 65 - 199 [facility] mg/dL [facility] LABORATORY Comment: Supplemental ranges: <140 mg/dL before meals <180 mg/dL all other times of the day Specimen Anatomical Collection Method Collection Time Receive d Time (Source) Location / / Volume Laterality Blood 12/09/2021 6:34 PM 2 6:34 EDT PM EDT Iker Cuevas MD POINT OF CARE TEST ORDERABLE S Performing Organization Address City/State/[place] [address] (ABNORMAL) POCT Glucose (12/09/2021 6:32 PM EDT) athologist Signature POC Glucose 356 (H) 65 - 199 [facility] mg/dL [facility] LABORATORY Comment: Supplemental ranges: <140 mg/dL before meals <180 mg/dL all other times of the day Specimen Anatomical Collection Method Collection Time Receive d Time (Source) Location / / Volume Laterality Blood 12/09/2021 6:32 PM 2 6:32 EDT PM EDT Iker Cuevas MD POINT OF CARE TEST ORDERABLE S Performing Organization Address City/State/[place] [address] (ABNORMAL) POCT Glucose (12/09/2021 4:19 PM EDT) athologist Signature POC Glucose 347 (H) 65 - 199 [facility] mg/dL [facility] LABORATORY Comment: Supplemental ranges: <140 mg/dL before meals <180 mg/dL all other times of the day Specimen Anatomical Collection Method Collection Time Receive d Time (Source) Location / / Volume Laterality Blood 12/09/2021 4:19 PM 2 4:19 EDT PM EDT Iker Cuevas MD POINT OF CARE TEST ORDERABLE S Performing Organization Address City/State/[place] [address] Heparin (unfractionated) Level (12/09/2021 1:29 PM EDT) athologist Signature Heparin UFH 0.42 IU/mL [facility] LABORATORY Comment: Heparin (anti-Xa) levels should be [...] City/State/[place] [address] (ABNORMAL) POCT Glucose (12/09/2021 12:02 PM EDT) athologist Signature POC Glucose 235 (H) 65 - 199 [facility] mg/dL [facility] LABORATORY Comment: Supplemental ranges: <140 mg/dL before meals <180 mg/dL all other times of the day Specimen Anatomical Collection Method Collection Time Receive d Time (Source) Location / / Volume Laterality Blood 12/09/2021 12:02 12/09/2021 PM EDT 12:02 PM EDT Iker Cuevas MD POINT OF CARE TEST ORDERABLE S Performing Organization Address City/State/[place] [address] (ABNORMAL) POCT Glucose (12/09/2021 9:44 AM EDT) athologist Signature POC Glucose 214 (H) 65 - 199 [facility] mg/dL [facility] LABORATORY Comment: Supplemental ranges: <140 mg/dL before meals <180 mg/dL all other times of the day Specimen Anatomical Collection Method Collection Time Receive d Time (Source) Location / / Volume Laterality Blood 12/09/2021 9:44 AM 2 9:44 EDT AM EDT Iker Cuevas MD POINT OF CARE TEST ORDERABLE S Performing Organization Address [facility]/Z[place] [address] EKG 12 Lead (12/09/2021 7:57 AM EDT) Component Value Ref Range Test Analysis Performed Pathologis t Method Time At Signature Ventricular rate 101 BPM MUSE SYSTEM Atrial Rate 101 BPM MUSE SYSTEM P-R Interval 150 ms MUSE SYSTEM QRS Duration 112 ms MUSE SYSTEM Q-T Interval 364 ms MUSE SYSTEM QTC Calculated 471 ms MUSE SYSTEM (Bezet) Calculated P Perry 59 degrees MUSE SYSTEM Calculated R Perry -42 degrees MUSE SYSTEM Calculated T Perry 102 degrees MUSE SYSTEM INTERPRETATION Sinus tachycardia Occasional Premature ventricular com plexes MUSE SYSTEM Left axis deviation 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) Abnormal ECG When compared with ECG of 08-DEC-2021 16:40, Premature ventricular complexes are now Present Confirmed by MD Fernandez Danette ([id number]) on 12/10/2021 4:55:06 PM Specimen Anatomical Collection Method Collection Time Receive d Time (Source) Location / / Volume Laterality 12/09/2021 7:57 AM 2 4:55 EDT PM EDT Iker Cuevas MD ECG ORDERABLES Performing Organization Address City/[facility]/ZIP Code Phon e Number MUSE SYSTEM (ABNORMAL) POCT Glucose (12/09/2021 7:28 AM EDT) P athologist Signature POC Glucose 263 (H) 65 - 199 [facility] mg/dL [facility] Comment: Supplemental ranges: <140 mg/dL before meals <180 mg/dL all other times of the day Specimen Anatomical Collection Method Collection Time Receive d Time (Source) Location / / Volume Laterality Blood 12/09/2021 7:28 AM 2 7:28 EDT AM EDT Iker Cuevas MD POINT OF CARE TEST ORDERABLE S Performing Organization Address City/State/ZIP Code Phon e Number [place] [phone]ORY [address] (ABNORMAL) Hemoglobin A1c (12/09/2021 [...] Mellitus, Diabetes Care 2013; 36: Suppl. 1, S67-04 Est Avg Gluc See note mg/dL [facility] Comment: Estimated Average Glucose [...] into estimated average glucose values. ??Diabetes Care 2008:31(8):6794-0546. Specimen Anatomical Collection Method Collection Time Receive d Time (Source) Location / / Volume Laterality Blood Venous Draw / 12/09/2021 6:18 AM 12/10/19 22 Unknown EDT 12:24 PM EDT Resulting Agency Comment Spec In Lab Migdalia BROWN CHEMISTRY ORDERABLES Performing Organization Address City/[facility] [place] [address] (ABNORMAL) Prothrombin Time (12/09/2021 6:18 AM EDT) athologist Signature PT 26.6 (H) 9.4 - 12.5 [facility] LABORATORY INR 2.3 [facility] Comment: An INR <2.0 [...] Migdalia BROWN HEMATOLOGY ORDERABLES Performing Organization Address City/[facility] Phon e Number [place] [phone]OS[address] Heparin (unfractionated) Level (12/09/2021 6:18 AM EDT) P athologist Signature Heparin UFH 0.24 IU/mL [facility] LABORATORY Comment: Heparin (anti-Xa) levels should be [...] Organization Address City/State/[place] [address] (ABNORMAL) Differential, Automated (12/09/2021 6:18 AM EDT) [facility] Method Time Signature Neutrophils % 91.5 % [facility] Neutr Abs (ANC) 15.78 (H) 1.70 - [facility] 6.10 [facility] x10(3)/[facility] L LABORATORY Lymphocytes % 2.9 % [facility] Lymphocytes Abs 0.5 (L) 0.9 - 3.2 [facility] x10(3)/[facility] LABORATORY Monocytes % 4.9 % [facility] Monocyte Abs 0.8 0.3 - 0.9 [facility] x10(3)/[facility] LABORATORY Eosinophils % 0.0 % [facility] Eosinophils Abs 0.0 0.0 - 0.4 [facility] x10(3)/[facility] LABORATORY Basophils % 0.2 % [facility] Basophils Abs 0.0 0.0 - 0.1 [facility] x10(3)/[facility] LABORATORY Immature Gran [...] Abs 0.09 (H) 0.00 - 0.04 x10(3)/[facility] LABORATORY Specimen Anatomical Collection Method Collection Time Receive d Time (Source) Location / / Volume Laterality Blood 12/09/2021 6:18 AM 6:33 EDT AM EDT Resulting Agency Comment Spec In Lab Morgan BROWN HEMATOLOGY ORDERABLES Performing Organization Address City/State/[place] [address] (ABNORMAL) Hemogram (12/09/2021 6:18 AM EDT) Analysis Performed At Patho logist Time Signature WBC 17.2 (H) 4.0 - 9.5 [facility] x10(3)/[facility] LABORATORY RBC 4.32 (L) 4.58 - [facility] R[facility] 5.54 [facility] x10(6)/[facility] LABORATORY Hemoglobin 12.6 (L) 13.7 - [facility] 16.5 g/dL [facility] Hematocrit 38.9 (L) 40.5 - [facility] R[facility] 48.5 % [facility] MCV 90.0 82.9 - [facility] 93.1 [facility] LABORATORY MCH 29.2 27.5 - [facility] 32.1 pg [facility] MCHC 32.4 32.0 - [facility] 35.7 g/dL [facility] Platelets 193 145 - 357 [facility] x10(3)/[facility] LABORATORY RDWSD 50.4 (H) 36.0 - [facility] 45.0 [facility] LABORATORY RDWCV 15.2 (H) 11.4 - [facility] 13.8 % [facility] MPV 9.5 7.6 - 12.9 [facility] LABORATORY nRBC % Auto 0.0 % [facility] nRBC Abs Auto 0.000 0.000 - [facility] 0.000 [facility] x10(3)/[facility] LABORATORY Specimen Anatomical Collection Method Collection Time Receive d Time (Source) Location / / Volume Laterality Blood 12/09/2021 6:18 AM 2 6:33 EDT AM EDT Resulting Agency Comment Spec In Lab Morgan BROWN HEMATOLOGY ORDERABLES Performing Organization Address City/State/[place] [address] Lipid Panel (Reflex Direct LDL) (12/09/2021 6:18 AM EDT) athologist Signature Chol, Total 105 mg/dL [facility] Comment: Lower Risk: <200 mg/dL Average Risk: 200-239 mg/dL Higher Risk: >ms=668 mg/dL Triglycerides 133 mg/dL [facility] Comment: Average Risk/Lower Risk: <150 mg/dL Borderline High Risk: 150-199 mg/dL High Risk: 200-499 mg/dL Very High Risk: >uh=279 mg/dL HDL 42 mg/dL [facility] LABOR[facility]ORY Comment: Males: ?? Higher Risk: <40 mg/dL Females: ?? Higher Risk: <50 mg/dL LDL Cholesterol 36 mg/dL [facility] Comment: Lowest Risk: <100 mg/dL Lower Risk: 100-129 mg/dL Borderline High Risk: 130-159 mg/dL High Risk: 160-189 mg/dL Very High Risk: >pf=964 mg/dL Chol/HDL Ratio 2.5 ratio [facility] Lipid Interpretation See Note [facility] Comment: Lipid management should be guided by a p atient? s ASCVD risk, goals and preferences. ACC/AHA Guidelines recommend high intens ity statin if clinical ASCVD or LDL greater than or equal to 190 mg/dL. http://tinyurl.com/ZQC-VYS-Meimyrmzy Adults aged 40-75 with LDL 70-189 mg/dL should have their 10 year ASCVD risk estimated with the ACC/AHA ASCVD risk es timator http://tools.acc.org/XXHGF-Ttwc-Ywwviaim r/ Statin should be discussed if risk [...] ORDERABLES Performing Organization Address [facility]/ZIP [facility] Phon e Number [address] TSH (12/09/2021 6:18 AM EDT) P athologist Signature TSH 1.60 0.27 - 4.20 [facility] mcIU/mL [facility] Comment: Reference Interval (mcIU/mL): Females: ??First Trimester: 0.23-3.88 ??Second Trimester: 0.22-3.90 ??Third Trimester: 0.44-4.66 Specimen Anatomical Collection Method Collection Time Receive d Time (Source) Location / / Volume Laterality Blood 12/09/2021 6:18 AM 2 6:33 EDT AM EDT Resulting Agency Comment Spec In Lab Iker Cuevas MD CHEMISTRY ORDERABLES Performing Organization Address City/[facility]/ZIP [facility] [place] [address] Hepatic Function Panel (12/09/2021 6:18 AM EDT) P athologist Signature Total Protein 7.3 6.1 - 8.0 [facility] g/dL [facility] Albumin 4.2 3.2 - 5.2 [facility] g/dL [facility] AST 25 0 - 39 [facility] unit/L [facility] ALT 15 0 - 55 [facility] unit/L [facility] Alk Phos 75 40 - 130 [facility] unit/L [facility] Total 1.1 0.2 - 1.3 [facility] Bilirubin mg/dL [facility] Bili, Direct 0.2 0.0 - 0.3 [facility] Specimen Anatomical Collection Method Collection Time Receive d Time (Source) Location / / Volume Laterality Blood 12/09/2021 6:18 AM 2 6:33 EDT AM EDT Resulting Agency Comment Spec In Lab Iker Cuevas MD CHEMISTRY ORDERABLES Performing Organization Address City/State/[place] [address] (ABNORMAL) BMP w/fasting Glucose (12/09/2021 6:18 AM EDT) athologist Signature Glucose 235 (H) 65 - 99 [facility] Fasting mg/dL [facility] Comment: ?Fasting* Glucose Interpretive C [...] of Diabetes Mellitus, Position Statement from the [place] [employer]. ??Diabete s Care, Volume 33, [...] Estimated GFR 52 (L) >=60 mL/min/1.73 m?? [facility] [...] City/[facility]/ZIP Code Phon e Number [address] Magnesium (12/09/2021 6:18 AM EDT) P athologist Signature Magnesium 0.81 0.69 - 1.07 [facility] mmol/L [facility] Specimen Anatomical Collection Method Collection Time Receive d Time (Source) Location / / Volume Laterality Blood 12/09/2021 6:18 AM 2 6:33 EDT AM EDT Resulting Agency Comment Spec In Lab Iker Cuevas MD CHEMISTRY ORDERABLES Performing Organization Address City/[facility]/[place] [address] (ABNORMAL) Troponin (12/09/2021 6:18 AM EDT) athologist Signature Troponin-T 1.13 (H) 0.00 - [facility] 0.00 ng/mL [facility] Comment: The 99th percentile for [...] additional sample may be indicated. Reference: Third [place] Definition of Myocardial Infarction. Journal of the [place] [employer] 2012;60:1581-98 Specimen Anatomical Collection Method Collection Time Receive d Time (Source) Location / / Volume Laterality Blood 12/09/2021 6:18 AM 2 6:33 EDT AM EDT Resulting Agency Comment Spec In Lab Iker Cuevas MD CHEMISTRY ORDERABLES Performing Organization Address City/State/ZIP Code Phon e Number [place] [place] [phone] [facility] LABORATORY Drive XR Chest One View [...] have questions please contact the health manager managed care that requested your imaging first. ? [...] have questions please contact the health manager managed care that requested your imaging first. Amber Sanches MD IMG DX ORDERABLES (ABNORMAL) BLOOD GAS 2 ARTERIAL (12/09/2021 5:14 AM EDT) Analysis Performed At Patho logist Time Signature pH Art 7.43 7.35 - [facility] 7.45 [facility] pCO2 Art 36 35 - 45 [facility] mmHg [facility] pO2 Art 67 (L) 85 - 104 [facility] LABORATORY HCO3 Art 23.4 20.0 - [facility] 26.0 [facility] mmol/L [facility]OR[facility] BE Art -0.9 -3.0 - 3.0 [facility] mmol/L [facility] Hgb Blood Gas 13.2 (L) 13.7 - [facility] 16.5 g/dL [facility] O2HB Art 91.3 (L) 94.0 - [facility] 97.0 % [facility] COHB Art 0.4 % [facility] Comment: Nonsmokers: 0.5-1.5% COHB Smokers: Variable, but usually less than 10% Toxic: 20-30% COHB Lethal: Greater than 60% COHB METHB Art 0.4 <=1.5 % [facility] Na Whole Blood 138 135 - 145 mmol/L [facility] K Whole Blood 4.1 3.5 - 5.0 mmol/L [facility] Comment: Please note: Patients with WBC >100,000 may have falsely elevated Potassium levels. Contact the Clinical Chemistry L aboratory if there are any questions. ICa Whole Blood 1.09 (L) 1.15 - 1.33 mmol/L [facility] [...] WB 2.7 (H) 0.5 - 2.2 mmol/L [facility] FIO2 Art 35 % [facility] Flow Art 8.0 LPM [facility] PF Ratio Art 191 [facility] LABOR[facility]ORY Specimen Anatomical Collection Method Collection Time Receive d Time (Source) Location / / Volume Laterality Blood 12/09/2021 5:14 AM 2 5:14 EDT AM EDT Iker Cuevas MD CHEMISTRY ORDERABLES Performing Organization Address City/[facility] [place] [address] POCT Glucose (12/09/2021 4:46 AM EDT) P athologist Signature POC Glucose 198 65 - 199 [facility] mg/dL [facility] Comment: Supplemental ranges: <140 mg/dL before meals <180 mg/dL all other times of the day Specimen Anatomical Collection Method Collection Time Receive d Time (Source) Location / / Volume Laterality Blood 12/09/2021 4:46 AM 2 4:46 EDT AM EDT Iker Cuevas MD POINT OF CARE TEST ORDERABLE S Performing Organization Address City/[facility]/[place] [address] (ABNORMAL) POCT Glucose (12/09/2021 3:01 AM EDT) P athologist Signature POC Glucose 225 (H) 65 - 199 [facility] mg/dL [facility] Comment: Supplemental ranges: <140 mg/dL before meals <180 mg/dL all other times of the day Specimen Anatomical Collection Method Collection Time Receive d Time (Source) Location / / Volume Laterality Blood 12/09/2021 3:01 AM 2 3:01 EDT AM EDT Iker Cuevas MD POINT OF CARE TEST ORDERABLE S Performing Organization Address City/State/[place] [address] (ABNORMAL) POCT Glucose (12/08/2021 10:55 PM EDT) athologist Signature POC Glucose 327 (H) 65 - 199 [facility] mg/dL [facility] Comment: Supplemental ranges: <140 mg/dL before meals <180 mg/dL all other times of the day Specimen Anatomical Collection Method Collection Time Receive d Time (Source) Location / / Volume Laterality Blood 12/08/2021 10:55 12/08/2021 PM EDT 10:55 PM EDT Iker Cuevas MD POINT OF CARE TEST ORDERABLE S Performing Organization Address City/State/ZIP Code Phon e Number [address] Heparin (unfractionated) Level (12/08/2021 10:03 PM EDT) athologist [facility] Heparin UFH 0.18 IU/mL [facility] LABORATORY Comment: Heparin (anti-Xa) levels should be [...] City/State/[place] [address] (ABNORMAL) Troponin (12/08/2021 10:03 PM EDT) athologist Signature Troponin-T 0.92 (H) 0.00 - [facility] 0.00 ng/mL [facility] Comment: The 99th percentile for [...] additional sample may be indicated. Reference: Third [place] Definition of Myocardial Infarction. Journal of the [place] [employer] 2012;60:1581-98 Specimen Anatomical Collection Method Collection Time Receive d Time (Source) Location / / Volume Laterality Blood 12/08/2021 10:03 12/08/2021 PM EDT 10:31 PM EDT Resulting Agency Comment Spec In Lab Iker Cuevas MD CHEMISTRY ORDERABLES Performing Organization Address City/State/Z[place] [address] (ABNORMAL) POCT Glucose (12/08/2021 8:22 PM EDT) athologist Signature POC Glucose 429 (H) 65 - 199 [facility] mg/dL [facility] Comment: Supplemental ranges: <140 mg/dL before meals <180 mg/dL all other times of the day Specimen Anatomical Collection Method Collection Time Receive d Time (Source) Location / / Volume Laterality Blood 12/08/2021 8:22 PM 2 8:22 EDT PM EDT Iker Cuevas MD POINT OF CARE TEST ORDERABLE S Performing Organization Address City/State/ZIP Code Phon e Number [address] (ABNORMAL) POCT Glucose (12/08/2021 7:06 PM EDT) athologist Signature POC Glucose 442 (H) 65 - 199 [facility] mg/dL [facility] Comment: Supplemental ranges: <140 mg/dL before meals <180 mg/dL all other times of the day Specimen Anatomical Collection Method Collection Time Receive d Time (Source) Location / / Volume Laterality Blood 12/08/2021 7:06 PM 2 7:06 EDT PM EDT Iker Cuevas MD POINT OF CARE TEST ORDERABLE S Performing Organization Address City/[facility]/[place]IP [place] [address] Magnesium (12/08/2021 6:02 PM EDT) athologist Signature Magnesium 0.86 0.69 - 1.07 [facility] mmol/L [facility]ORY Specimen Anatomical Collection Method Collection Time Receive d Time (Source) Location / / Volume Laterality Blood 12/08/2021 6:02 PM 2 6:36 EDT PM EDT Resulting Agency Comment Spec In Lab Iker Cuevas MD CHEMISTRY ORDERABLES Performing Organization Address City/State/[place] [address] (ABNORMAL) Basic Metabolic Panel (non-fasting) (12/08/2021 6:02 PM EDT) athologist Signature Glucose Lvl 392 (H) 65 - 199 [facility] mg/dL [facility] Comment: Diabetes: [...] - 107 mmol/L [facility] CO2 20 (L) 22 - 31 mmol/L [facility] [...] Organization Address City/State/[place] [address] (ABNORMAL) Differential, Automated (12/08/2021 6:02 PM EDT) [facility] gist Method Time Signature Neutrophils % 89.5 % [facility] Neutr Abs (ANC) 13.97 (H) 1.70 - [facility] 6.10 [facility] x10(3)/[facility] L LABORATORY Lymphocytes % 3.7 % [facility] Lymphocytes Abs 0.6 (L) 0.9 - 3.2 [facility] x10(3)/[facility] LABORATORY Monocytes % 6.1 % [facility] Monocyte Abs 1.0 (H) 0.3 - 0.9 [facility] x10(3)/[facility] LABORATORY Eosinophils % 0.0 % [facility] Eosinophils Abs 0.0 0.0 - 0.4 [facility] x10(3)/[facility] LABORATORY Basophils % 0.2 % [facility] Basophils Abs 0.0 0.0 - 0.1 [facility] x10(3)/[facility] LABORATORY Immature Gran [...] Abs 0.08 (H) 0.00 - 0.04 x10(3)/[facility] LABORATORY Specimen Anatomical Collection Method Collection Time Receive d Time (Source) Location / / Volume Laterality Blood 12/08/2021 6:02 PM 2 6:36 EDT PM EDT Resulting Agency Comment Spec In Lab Morgan BROWN HEMATOLOGY ORDERABLES Performing Organization Address City/State/[place] [address] (ABNORMAL) Hemogram (12/08/2021 6:02 PM EDT) Analysis Performed At Patho logist Time Signature WBC 15.6 (H) 4.0 - 9.5 [facility] x10(3)/[facility] LABORATORY RBC 4.05 (L) 4.58 - [facility] 5.54 [facility] x10(6)/[facility] LABORATORY Hemoglobin 11.8 (L) 13.7 - [facility] 16.5 g/dL [facility] Hematocrit 35.8 (L) 40.5 - [facility] 48.5 % [facility] MCV 88.4 82.9 - [facility] 93.1 [facility] LABORATORY MCH 29.1 27.5 - [facility] ZHAORYAN 32.1 pg [facility] MCHC 33.0 32.0 - [facility] 35.7 g/dL [facility] Platelets 178 145 - 357 [facility] x10(3)/[facility] LABORATORY RDWSD 49.3 (H) 36.0 - [facility] 45.0 [facility] LABORATORY RDWCV 15.1 (H) 11.4 - [facility] 13.8 % [facility]ORATORY MPV 10.4 7.6 - 12.9 [facility] LABORATORY nRBC % Auto 0.0 % [facility]AT[facility] nRBC Abs Auto 0.000 0.000 - [facility] 0.000 [facility] x10(3)/[facility] LABORATORY Specimen Anatomical Collection Method Collection Time Receive d Time (Source) Location / / Volume Laterality Blood 12/08/2021 6:02 PM 6:36 EDT PM EDT Resulting Agency Comment Spec In Lab Morgan BROWN HEMATOLOGY ORDERABLES Performing Organization Address City/State/[place] [address] (ABNORMAL) Troponin (12/08/2021 6:02 PM EDT) athologist Signature Troponin-T 0.89 (H) 0.00 - [facility] 0.00 ng/mL [facility] Comment: The 99th percentile for [...] additional sample may be indicated. Reference: Third [place] Definition of Myocardial Infarction. Journal of the [place] [employer] 2012;60:1581-98 Specimen Anatomical Collection Method Collection Time Receive d Time (Source) Location / / Volume Laterality Blood 12/08/2021 6:02 PM 6:36 EDT PM EDT Resulting Agency Comment Spec In Lab Iker Cuevas MD CHEMISTRY ORDERABLES Performing Organization Address City/State/ZIP Code Phon e Number [place] [phone]OS[address] COVID-19 PCR (12/08/2021 5:00 PM EDT) [facility] Method Time Signature SARS-CoV-2 Not Detected Not Detected [facility] RNA PCR [facility] LABORATORY Comment: This result should be interpreted [...] using the Simplexa COVID-19 Direct Assay by [employer] as authorized by the FDA issued Emergency [...] fact sheets at the following FDA website: https://www.fda.gov/medical-devices/ynzggqaaxtp-lnnpxob-6185-dqlag-80-hqyvnmlvh- qyn-mjcywtfjzwejtm-ctepbif-devices/xszbd-obbpzexurlu-ezva SARS-CoV-2 Source RETAIL SALESWORKER Swab [facility] LABORATORY Specimen (Source) Anatomical Collection Method Collection Time Re ceived Time Location / / Volume Laterality Nasopharyngeal Swab 12/08/2021 5:00 12/08 PM EDT 6:03 PM EDT Comment: Symptoms->Surveillance Resulting Agency Comment Spec In Lab Iker Cuevas MD MICROBIOLOGY - GENERAL ORDER [place] Performing Organization Address City/State/[place] [address] EKG 12 Lead (12/08/2021 4:40 PM EDT) Component Value Ref Range Test Analysis Performed Pathologis t Method Time At Signature Ventricular rate 78 BPM MUSE SYSTEM Atrial Rate 78 BPM MUSE SYSTEM P-R Interval 152 ms MUSE SYSTEM QRS Duration 96 ms MUSE SYSTEM Q-T Interval 396 ms MUSE SYSTEM QTC Calculated 451 ms MUSE SYSTEM (Bezet) Calculated P Perry 44 degrees MUSE SYSTEM Calculated R Perry -31 degrees MUSE SYSTEM Calculated T Perry 124 degrees MUSE SYSTEM INTERPRETATION Normal sinus [...] POC Glucose 400 (H) 65 - 199 [facility] mg/dL [facility] Comment: Supplemental ranges: <140 mg/dL before meals <180 mg/dL all other times of the day Specimen Anatomical Collection Method Collection Time Receive d Time (Source) Location / / Volume Laterality Blood 12/08/2021 4:34 PM 2 4:34 EDT PM EDT Iker Cuevas MD POINT OF CARE TEST ORDERABLE S Performing Organization Address City/State/[place] [address] documented in this encounter [...] Given 11/23 10:30 AM EDT 300 mcg ([employer]) ONCE PRN, Starting on Wed12/10/21 at 1030, [...] Units (CANCELED) 0735 (Given - Provider: Emma Gracia RN )0805 (SEP Hold - Provider: Admin [...] Discontinued, Routine 2033 (Given - Provider: Barbara oBogie RN) spironolactone (Aldactone) tablet 25 mg 0844 [...] (Intra-Procedure), Routine niCARdipine (Cardene) (100 mcg/mL) dilution ([employer]) (CANCELED) 1030 (Given - Provider: Vitaliy Nobles [...] episode. & nbsp; For persistent hypoglycemia, con open hearth helper longer-acting treatment for the duration of [...]
Routine documented in this encounter Care Teams Alpine Patroller Relationship Specialty Start Date End Date Lovely Vicente MD PCP - General 04/16/[address] [place] [address] documented as of this encounter
--- OUTSIDE RECORDS SUMMARY | 2022-04-06 10:37 | XMS_ITS | Encounter Summary ---
:1945 Author Organization [facility] [place] [address] Care Team Providers Name Role Phone Lovely Vicente MD Primary Care Provider Encounter Details Date Type Department Care Team Description 03/20/2021 Ancillary Procedure Radiology Library [place] [address] [place] [address] [phone] Social History Tobacco Use Types Packs/Day Years [...] Dolan MD [facility] er [place], [place] [address] (Wo rk) 05/28/2022 Laboratory Appointment Lab 05/28/2022 Office Visit Cardiology Zulma Dolan MD [facility] [place] [address] Liz Poole PA [facility] [place] [address] 06/10/2022 Office Visit Dermatology Laura Scherer MD [facility] ER [address] [place], [place] [address] (Wo rk) documented as of [...] Organization Address City/State/ZIP Code Phon e Number [place], [place] documented in this encounter Visit Diagnoses Not on filedocumented in this encounter Care Teams Director Public Policy Relationship Specialty Start Date End Date Lovely Vicente MD PCP - General 04/16/[address] [place] [address] documented as of this encounter
--- OUTSIDE RECORDS SUMMARY | 2022-04-06 10:37 | XMS_ITS | Encounter Summary ---
:1945 Author Organization [place] [address] Care Team Providers Name Role Phone Lovely Vicente MD Primary Care Provider Reason for Visit Reason Onset Date Comments Other 03/24/2019 cardiac clearance ne eded Encounter Details Date Type Department Care Team Description 03/24/2019 Telephone Cardiology at [facility] Danette Maxwell, Other (cardiac [facility] SLIP BRIDGE OPERATOR clearance needed) [place] [address] CARDIOLOGY [place], [place] [address] (Wo rk) Social History Tobacco [...] AM EDT Leonela from [facility] [place] called requesting cardiac clearance for this patient who is to have a colonoscopy on 04/04/19. He is on anticoagulation and they will need to bridge him. Their phone # [phone], fax# [phone]. Thank you. documented in this encounter Plan of Treatment Upcoming Encounters Date Type Specialty Care Team Description 05/28/2022 Appointment Cardiology Zulma Dolan MD [facility] [place], [place] [address] (Wo rk) 05/28/2022 Laboratory Appointment Lab 05/28/2022 Office Visit Cardiology Zulma Dolan MD [facility] [place] [address] Po[address] PA [facility] [place] [address] 06/10/2022 Office Visit Dermatology Laura Scherer MD [facility] [address] [place], [place] [address] (Wo rk) documented as of this encounter Visit Diagnoses Not on filedocumented in this encounter Care Teams Gas Operator Relationship Specialty Start Date End Date Lovely Vicente MD PCP - General 04/16/[address] [place] [address] documented as of this encounter
--- OUTSIDE RECORDS SUMMARY | 2022-04-06 10:37 | XMS_ITS | Encounter Summary ---
:1945 Author Organization [facility] Address [address] [address] Care Team Providers Name Role Phone Lovely Vicente MD Primary Care Provider Reason for Referral Diagnostic Test (Routine) - Closed Specialty Diagnoses / Procedures Referred By Contact Refer red To Contact Cardiology Diagnoses Chronic systolic heart failure Danette Maxwell APRN [facility] Non-Inv Card Lab Procedures Echocardiogram Transthoracic(Leb) [facility] [address] [place] [address] [place] [address] Referral ID Status Reason Start Date Expiration Date Visits V isits Requested Authorized [id number] Closed Specialty 07/17/2019 09/14/2019 1 1 Service Requested Encounter Details Date Type Department Care Team Description 01/16/2019 Office Visit Cardiology at [facility] Danette Mawxell, Chronic systolic heart failu re; [facility] STACIE Cardiomyopathy, ischemic; Drive [facility] Hx of thyroid cancer; [place], [place] DR ELMORE (arteriosclerotic heart disease); [address] CARDIOLOGY MARIA VICTORIA (obstructive sleep apnea) on CPAP [phone] [place], [place] [address] (Wo rk) Social History Tobacco Use Types [...] K+ 4.6 today 6. Post-op atrial fibrillation [id number] 7 (CHF, HTN, DM, vascular disease, thromboembolism) Amiodarone discontinued Continue coumadin INR managed by PCP. 2.1 today 7. PAD 08/06/2017: Right 1st, 2nd, 3rd toe amputation 08/11/2017: Left??femoral arterial access, RLE??angiogram, Balloon angioplasty of R PT with Eleazar 2.5 x 80 10/25/2017: right popliteal-pedal bypass at [facility] 8. Hypothyrodism S/p thyroidectomy for goiter [...] Zulma Dolan MD [facility] [place], [place] [address] (Wo rk) 05/28/2022 Laboratory Appointment Lab 05/28/2022 Office Visit Cardiology Zulma Dolan MD [facility] [place] [address] Liz Poole PA [facility] [place] [address] 06/10/2022 Office Visit Dermatology Laura Scherer MD [facility] [address] [place], [place] [address] (Wo rk) documented as of this encounter Results ECHOCARDIOGRAM COMPLETE W CONTRAST (07/28/2019 8:19 AM EST) athologist Signature EF 40 HEARTLAB SYSTEM Anatomical Region Laterality Modality Other Specimen (Source) Anatomical Location Collection Method / Collectio n Time Received Time / Laterality Volume 07/28/2019 Narrative 07/28/2019 8:38 AM EST Procedure: ?Transthoracic Echocardiogram Patient: ?NATALYA Mccollum ? (Age): 1945(74y) Med Rec#: ? [id number] ?Sex: ?M ? Site Loc: ? [facility] ?Ht / Wt: ??172(cm)/81(kg) Pt. Loc: ?Echo Lab ?BSA: ?1.94 Study Date: ?? 07/28/2019 ?Pt. Type: Outpatient Tape: ? Referring: MARY ELLEN Reading: Ifeanyi Truong ([id number]) Supervisor Frame Sample And Pattern: Fadumo Flanagan RDCS, REGINA Diagnosis: *Chronic systolic [...] E-wave Vmax ?1 ?m/sec ? MV deceleration mfgh830.5 ? msec ? MV A-wave Vmax ?1 [...] ? Pulmonic Valve/Qp:Qs ?Value ?Units (Range) ? AR end-diastolic Vma1.1 ?m/sec ? Wall Motion: Segment Name ?Rest ? Base-Anteroseptal ?? Normal ? Base-Anterior ? Normal ? Base-Anterolateral ??Normal ? Base-Posterolateral Normal ? Base-Inferior ? Akinetic ? Base-Inferoseptal ?? Normal ? Mid-Anteroseptal ?Normal ? Mid-Anterior ?Hypokinetic ? Mid-Anterolateral ?? Normal ? Mid-Posterolateral ??Normal ? Mid-Inferior ?Hypokinetic ? Mid-Inferoseptal ?Normal ? [place]-Septal ? Normal ? [place]-Anterior ? Hypokinetic ? [place]-Lateral ?Normal ? [place]-Inferior ? Akinetic ? [place]-Tip ?Hypokinetic ? This report has been electronically sign ed by: _ Ifeanyi Truong M.D. ? 07/28/2019 0 8:38:01 Images reviewed and interpretation [facility] Procedure Note Ifeanyi Truong MD - 07/28/2019Formatt ing of this note might be different from the original. Procedure: Transthoracic Echocardiogram Patient: NATALYA MCBRIDE(Age): [birth year]74y) Med Rec#: [id number] Sex: M Site Loc: [facility] Ht / Wt: 172(cm)/81(kg) Pt. Loc: Echo Lab BSA: 1.94 Study Date: 07/28/2019 Pt. Type: Outpati ent Tape: Referring: MARY ELLEN Reading: Ifeanyi Truong ([id number]) Supervisor Frame Sample And Pattern: Fadumo Flanagan [facility], REGINA Diagnosis: *Chronic systolic (congestive) heart [...] MV E-wave Vmax 1 m/sec MV deceleration rdrs805.5 msec MV A-wave Vmax 1 m/sec MV [...] 0.7 ratio Pulmonic Valve/Qp:Qs Value Units (Range) AR end-diastolic Vma1.1 m/sec Wall Motion: Segment Name Rest Base-Anteroseptal Normal Base-Anterior Normal Base-Anterolateral Normal Base-Posterolateral Normal Base-Inferior Akinetic Base-Inferoseptal Normal Mid-Anteroseptal Normal Mid-Anterior Hypokinetic Mid-Anterolateral Normal Mid-Posterolateral Normal Mid-Inferior Hypokinetic Mid-Inferoseptal Normal [place]-Septal Normal [place]-Anterior Hypokinetic [place]-Lateral Normal [place]-Inferior Akinetic [place]-Tip Hypokinetic This report has been electronically sign ed by: _ Ifeanyi Truong M.D. 07/28/2019 08:38:0 1 Images reviewed and interpretation verif ied [facility] Cardiac Ultrasound Laboratory Danette Maxwell APRN ECHO ORDERABLES (ABNORMAL) Basic Metabolic Panel (non-fasting) (01/16/2019 7:49 AM EDT) P athologist Signature Glucose Lvl 105 65 - 199 [facility] mg/dL [facility] Comment: [...] of body mass or the acutely ill. http://Ischemia Care/TrackIFnkf eGFR 79 >=60 mL/min/1.73 m?? [facility] Comment: The eGFR was calculated using the CKD-EP I equation. As with all creatinine based estimates of kidney function, eGFR values calculated with the CKD-EPI equation are not accurate in patients wi th acute kidney failure, extremes of body mass or the acutely ill. http://Ischemia Care/[facility]kf Specimen Anatomical Collection Method Collection Time Receive d Time (Source) Location / / Volume Laterality Blood specimen 01/16/2019 7:49 AM 019 7:55 (specimen) EDT AM EDT Resulting Agency Comment Spec In Lab Danette Maxwell APRN CHEMISTRY ORDERABLES Performing Organization Address City/State/[place] [address] (ABNORMAL) pro-Brain Natriuretic Peptide (01/16/2019 7:49 AM EDT) P athologist Signature ProBNP 780 (H) <=125 pg/mL [facility] Specimen Anatomical Collection Method Collection Time Receive d Time (Source) Location / / Volume Laterality Blood specimen 01/16/2019 7:49 AM 019 7:55 (specimen) EDT AM EDT Resulting Agency Comment Spec In Lab Danette Maxwell SIGN ERECTOR CHEMISTRY ORDERABLES Performing Organization Address City/State/[place] [address] documented in this encounter Visit Diagnoses Diagnosis Chronic systolic heart failure Cardiomyopathy, ischemic Other specified forms of chronic ischemi c heart disease Hx of thyroid cancer Personal history of malignant neoplasm o f thyroid ASHD (arteriosclerotic heart disease) Coronary atherosclerosis of unspecified type of vessel, [place] or graft MARIA VICTORIA (obstructive sleep apnea) on CPAP Obstructive sleep apnea (adult) (pediatr ic) Chronic systolic heart failure documented in this encounter Care Teams Rrts Relationship Specialty Start Date End Date Lovely Vicente MD PCP - General 04/16/[address] [place] [address] documented as of this encounter
--- OUTSIDE RECORDS SUMMARY | 2022-04-06 10:37 | XMS_ITS | Encounter Summary ---
:1945 Author Organization [facility] [place] [address] Care Team Providers Name Role Phone Lovely Vicente MD Primary Care Provider Encounter Details Date Type Department Care Team Description 03/20/2021 Ancillary Procedure Radiology Library [place] [address] [place] [address] [phone] Social History Tobacco Use Types Packs/Day Years [...] Dolan MD [facility] er [place], [place] [address] (Wo rk) 05/28/2022 Laboratory Appointment Lab 05/28/2022 Office Visit Cardiology Zulma Dolan MD [facility] [place] [address] Liz Poole PA [facility] [place] [address] 06/10/2022 Office Visit Dermatology Laura Scherer MD [facility] ER DR [address] [place], [place] [address] (Wo rk) documented as of [...] Organization Address City/State/ZIP Code Phon e Number [place], [place] documented in this encounter Visit Diagnoses Not on filedocumented in this encounter Care Teams Ncr Operator Relationship Specialty Start Date End Date Lovely Vicente MD PCP - General 04/16/[address] [place] [address] documented as of this encounter
--- OUTSIDE RECORDS SUMMARY | 2022-04-06 10:37 | XMS_ITS | Encounter Summary ---
:1945 Author Organization [facility] [place] [address] Care Team Providers Name Role Phone Lovely Vicente MD Primary Care Provider Encounter Details Date Type Department Care Team Description 12/08/2021 External Results Non-Invasive Cardiology Lab Mar y None [facility] [place] [address] Social History Tobacco Use Types Packs/Day [...] Dolan MD [facility] er Dr [place], [place] [address] (Wo rk) 05/28/2022 Laboratory Appointment Lab 05/28/2022 Office Visit Cardiology Zulma Dolan MD [facility] [place] [address] Liz Poole PA [facility] [place] [address] 06/10/2022 Office Visit Dermatology Laura Scherer MD [facility] [address] [place], [place] [address] (Wo rk) documented as of [...] filedocumented in this encounter Care Teams Supervisor Ski Production Relationship Specialty Start Date End Date Lovely Vicente MD PCP - General 04/16/[address] [place] [address] documented as of this encounter
--- OUTSIDE RECORDS SUMMARY | 2022-04-06 10:37 | XMS_ITS | Encounter Summary ---
:1945 Author Organization [facility] [place] [address] Care Team Providers Name Role Phone Lovely Vicente MD Primary Care Provider Encounter Details Date Type Department Care Team Description 02/19/2020 Telephone Dermatology at [facility] Ariana Wilder LPN [address] [place] [address] Social History Tobacco Use Types Packs/Day [...] Zulma Dolan MD [facility] [place], [place] [address] (Wo rk) 05/28/2022 Laboratory Appointment Lab 05/28/2022 Office Visit Cardiology Zulma Dolan MD [facility] [place] [address] Liz Poole PA [facility] [place] [address] 06/10/2022 Office Visit Dermatology Laura Scherer MD [facility] [address] [place], [place] [address] (Wo rk) documented as of this encounter Visit Diagnoses Not on filedocumented in this encounter Care Teams Retread Mold Operator Relationship Specialty Start Date End Date Lovely Vicente MD PCP - General 04/16/[address] [place] [address] documented as of this encounter
--- OUTSIDE RECORDS SUMMARY | 2022-04-06 10:37 | XMS_ITS | Encounter Summary ---
:1945 Author Organization [place] [address] Care Team Providers Name Role Phone Lovely Vicente MD Primary Care Provider Encounter Details Date Type Department Care Team Description 07/28/2019 Office Visit Cardiology [place] [facility] Danette Maxwell Chronic systolic heart failu re; [facility] A, STACIE ASHD (arteriosclerotic heart disease); Drive [facility] S/P CABG x 3; [place], [place] MARIA VICTORIA (obstructive sleep apnea) on CPAP; [phone] CARDIOLOGY Mixed hyperlipidemia [phone] [place], [place] [address] Social History Tobacco Use Types [...] in this encounter Progress Notes Danette Maxwell, RATING CLERK - 07/28/2019 9:40 AM EST Images [...] regurgitation present. 07/07/2019 - 07/21/2019 Zio Patch Welding Operator The patient had a minimum heart [...] K+ 4.5 today 6. Post-op atrial fibrillation [id number] 7 (CHF, HTN, DM, vascular disease, thromboembolism) Amiodarone discontinued Continue coumadin INR managed by PCP 7. PAD 08/06/2017: Right 1st, 2nd, 3rd toe amputation 08/11/2017: Left??femoral arterial access, RLE??angiogram, Balloon angioplasty of R PT with Eleazar 2.5 x 80 10/25/2017: right popliteal-pedal bypass at [facility] 8. Hypothyrodism S/p thyroidectomy for [...] advised: Refer to EP (Dr. Mcelroy in [place]) 5. Heart Failure Clinic follow up scheduled for: 3 months with proBNP and BMP Danette Maxwell APRN 07/28/2019 documented in this encounter Plan of Treatment Upcoming Encounters Date Type Specialty Care Team Description 05/28/2022 Appointment Cardiology Zulma Dolan MD [facility] [place], [place] [address] (Wo rk) 05/28/2022 Laboratory Appointment Lab 05/28/2022 Office Visit Cardiology Zulma Dolan MD [facility] [place] [address] Liz Poole PA [facility] [place] [address] 06/10/2022 Office Visit Dermatology Laura Scherer MD [facility] [address] [place], [place] [address] (Wo rk) documented as of this encounter Results (ABNORMAL) Basic Metabolic Panel (non-fasting) (07/28/2019 8:36 AM EST) P athologist Signature Glucose Lvl 153 65 - [address] [facility] mg/dL [facility] [...] mg/dL [facility] Estimated GFR 70 >=60 mL/min/1.73 m?? [facility] Comment: The eGFR was calculated using the CKD-EP I equation. As with all creatinine based estimates of kidney function, eGFR values calculated with the CKD-EPI equation are not accurate in patients wi th acute kidney failure, extremes of body mass or the acutely ill. http://CarJump/[facility]k eGFR 81 >=60 mL/min/1.73 m?? [facility] Comment: The eGFR was calculated using the CKD-EP I equation. As with all creatinine based estimates of kidney function, eGFR values calculated with the CKD-EPI equation are not accurate in patients wi th acute kidney failure, extremes of body mass or the acutely ill. http://CarJump/[facility] CITYnkf Specimen Anatomical Collection Method Collection Time Receive d Time (Source) Location / / Volume Laterality Blood specimen 07/28/2019 8:36 AM 020 8:46 (specimen) EST AM EST Resulting Agency Comment Spec In Lab Danette Maxwell APRN CHEMISTRY ORDERABLES Performing Organization Address City/State/ZIP Code Phon e Number [address] (ABNORMAL) pro-Brain Natriuretic Peptide (07/28/2019 8:36 AM EST) athologist Signature ProBNP 647 (H) <=125 pg/mL [facility] Specimen Anatomical Collection Method Collection Time Receive d Time (Source) Location / / Volume Laterality Blood specimen 07/28/2019 8:36 AM 020 8:46 (specimen) EST AM EST Resulting Agency Comment Spec In Lab Danette Maxwell APRN CHEMISTRY ORDERABLES Performing Organization Address City/[facility]/ZIP Code [place] [address] documented in this encounter Visit Diagnoses Diagnosis Chronic systolic heart failure ASHD (arteriosclerotic heart disease) Coronary atherosclerosis of unspecified type of vessel, [place] or graft S/P CABG x 3 Postsurgical aortocoronary bypass status MARIA VICTORIA (obstructive sleep apnea) on CPAP Obstructive sleep apnea (adult) (pediatr ic) Mixed hyperlipidemia documented in this encounter Care Teams Rn Er Relationship Specialty Start Date End Date Lovely Vicente MD PCP - General 04/16/[address] [place] [address] documented as of this encounter
--- OUTSIDE RECORDS SUMMARY | 2022-04-06 10:37 | XMS_ITS | Encounter Summary ---
:1945 [place] [address] Care Team Providers Name Role Phone Lovely Vicente MD Primary Care Provider Encounter Details Date Type Department Care Team Description 08/15/2018 Laboratory Appointment Lab [facility]L [facility] [place] [address] Social History Tobacco Use Types Packs/Day [...] MD [facility] er [place], [place] [address] (Wo rk) 05/28/2022 Laboratory Appointment Lab 05/28/2022 Office Visit Cardiology Zulma Dolan MD [facility] [place] [address] Liz Poole PA [facility] [place] [address] 06/10/2022 Office Visit Dermatology Laura Scherer MD [facility] ER DR [address] [place], [place] 0[address] (Wo [...] 12.5 [facility] LABORATORY INR 2.1 [place] [...] Organization Address City/State/ZIP [place] [address] documented in this encounter Visit Diagnoses Not on filedocumented in this encounter Care Teams Clothes Ironer Relationship Specialty Start Date End Date Lovely Vicente MD PCP - General 04/16/[address] [place] [address] documented as of this encounter
--- OUTSIDE RECORDS SUMMARY | 2022-04-06 10:37 | XMS_ITS | Encounter Summary ---
:1945 [place] [address] Care Team Providers Name Role Phone Lovely Vicente MD Primary Care Provider Encounter Details Date Type Department Care Team Description 04/16/2021 Office Visit Cardiology at [facility] Liz Poole, Chronic systolic heart [facility] [place] [address] Cardiology Dept [phone] [place], [place] [address] Social History Tobacco Use Types [...] was feeling good. Interim events: Seen at [facility] after an episode of dizziness [...] regurgitation present. 07/07/2019 - 07/21/2019 Zio Patch Tread Booker The patient had a minimum heart rate [...] K+ 5.2 today 6. Post-op atrial fibrillation [id number] (CHF, HTN, DM, vascular disease, thromboembolism) On warfarin - recent labile INR Will discuss with PCP, option of Luis Daniel 7. PAD 08/06/2017: Right 1st, 2nd, 3rd toe amputation 08/11/2017: Left??femoral arterial access, RLE??angiogram, Balloon angioplasty of R PT 10/25/2017: right pop[facility]al[facility] at [facility] 8. Hypothyrodism S/p thyroidectomy for [...] Zulma Dolan MD [facility] [place], [place] [address] (Wo rk) 05/28/2022 Laboratory Appointment Lab 05/28/2022 Office Visit Cardiology Zulma Dolan MD [facility] [place] [address] Liz Poole PA [facility] [place] [address] 06/10/2022 Office Visit Dermatology Laura Scherer MD [facility] [address] [place], [place] [address] (Wo rk) documented as of this encounter Results (ABNORMAL) Basic Metabolic Panel (non-fasting) (04/16/2021 9:58 AM EDT) athologist Signature Glucose Lvl 77 65 - 199 [facility] mg/dL [facility] Comment: Diabetes: >=200 [...] estions. Chloride 103 98 - 107 mmol/L [facility] CO2 28 22 - 31 mmol/L [facility] Anion Gap 9 5 - 15 mmol/L [facility] Calcium 9.3 8.5 - 10.5 mg/dL [facility] Estimated GFR 55 (L) >=60 mL/min/1.73 m?? [facility] [...] Address City/State/[place] [address] (ABNORMAL) pro-Brain Natriuretic Peptide (04/16/2021 9:58 AM EDT) P athologist Signature ProBNP 523 (H) <=124 pg/mL [facility] Specimen Anatomical Collection Method Collection Time Receive d Time (Source) Location / / Volume Laterality Blood 04/16/2021 9:58 AM EDT 10:02 AM EDT Resulting Agency Comment Spec In Lab Zulma Plunkett MD CHEMISTRY ORDERABLES Performing Organization Address City/State/[place] [address] documented in this encounter Visit Diagnoses Diagnosis Chronic systolic heart failure documented in this encounter Care Teams Primer Charger Relationship Specialty Start Date End Date Lovely Vicente MD PCP - General 04/16/[address] [place] [address] documented as of this encounter
--- OUTSIDE RECORDS SUMMARY | 2022-04-06 10:37 | XMS_ITS | Encounter Summary ---
:1945 Author Organization [facility] [place] [address] Care Team Providers Name Role Phone Lovely Vicente MD Primary Care Provider Encounter Details Date Type Department Care Team Description 01/16/2019 Laboratory Appointment Lab [facility] [place] [id number] Social History Tobacco Use Types Packs/Day Years [...] MD [facility] [place], [place] [address] (Wo rk) 05/28/2022 Laboratory Appointment Lab 05/28/2022 Office Visit Cardiology Zulma Dolan MD [facility] [place] [address] Liz Poole PA [facility] [place] [address] 06/10/2022 Office Visit Dermatology Laura Scherer MD [facility] ER DR [address] [place], [place] [address] (Wo rk) documented as of [...] Organization Address City/State/[place] [address] (ABNORMAL) Basic Metabolic Panel (non-fasting) (01/16/2019 7:49 AM EDT) athologist Signature Glucose Lvl 105 65 - 199 [facility] mg/dL [facility] [...] of body mass or the acutely ill. [email or web address]/Penzatankf eGFR 79 >=60 mL/min/1.73 m?? [facility] Comment: The eGFR was calculated using the CKD-EP I equation. As with all creatinine based estimates of kidney function, eGFR values calculated with the CKD-EPI equation are not accurate in patients wi th acute kidney failure, extremes of body mass or the acutely ill. http://[employer]/Penzatankf Specimen Anatomical Collection Method Collection Time Receive d Time (Source) Location / / Volume Laterality Blood specimen 01/16/2019 7:49 AM 019 7:55 (specimen) EDT AM EDT Resulting Agency Comment Spec In Lab Danette Maxwell APRN CHEMISTRY ORDERABLES Performing Organization Address City/State/[place] [address] documented in this encounter Visit Diagnoses Diagnosis Chronic systolic heart failure documented in this encounter Care Teams Customs Port Director Relationship Specialty Start Date End Date Lovely Vicente MD PCP - General 04/16/[address] [place] [address] documented as of this encounter
--- OUTSIDE RECORDS SUMMARY | 2022-04-06 10:37 | XMS_ITS | Encounter Summary ---
:1945 [place] [address] Care Team Providers Name Role Phone Lovely Vicente MD Primary Care Provider Encounter Details Date Type Department Care Team Description 03/20/2021 Telephone Neurology at [facility] Hugo Gaston MD [facility] [place] [address] [place] [address] [phone] (Wo rk) Social History Tobacco Use Types [...] Gaston MD Department of Neurology Pager # [phone] documented in this encounter Plan of Treatment Upcoming Encounters Date Type Specialty Care Team Description 05/28/2022 Appointment Cardiology Zulma Dolan MD [facility] [place], [place] [address] (Wo rk) 05/28/2022 Laboratory Appointment Lab 05/28/2022 Office Visit Cardiology Zulma Dolan MD [facility] [place] [address] Liz Poole PA [facility] [place] [address] 06/10/2022 Office Visit Dermatology Laura Scheerr MD [facility] DR [address] [place], [place] [address] (Wo rk) documented as of this encounter Visit Diagnoses Not on filedocumented in this encounter Care Teams Doctor Assistant Relationship Specialty Start Date End Date Lovely Vicente MD PCP - General 04/16/[address] [place] [address] documented as of this encounter
--- OUTSIDE RECORDS SUMMARY | 2022-04-06 10:37 | XMS_ITS | Encounter Summary ---
:1945 Author Organization [facility] Address [facility] [place] [address] Care Team Providers Name Role Phone Lovely Vicente MD Primary Care Provider Reason for Referral Diagnostic Test (Routine) - Specialty Diagnoses / Procedures Referred By Contact Refer red To Contact Cardiology Diagnoses Chronic systolic heart failure Danette Maxwell APRN [facility] Non-Inv Card Lab Procedures Echocardiogram Transthoracic(Leb) [facility] [place] [address] [place] [address] Referral ID Status Reason Start Date Expiration Visits Visits Date Requested Authorized [id number] Specialty 08/15/2018 08/15/2018 1 1 Service Requested Encounter Details Date Type Department Care Team Description 04/18/2018 Office Visit Cardiology at [facility] Danette Maxwell Chronic systolic heart failu re; [facility] STACIE Gomes On amiodarone therapy; [facility] Ischemic cardiomyopathy; [place], [place] DR ONOFRE (arteriosclerotic cardiovascular d isease) [phone] CARDIOLOGY [phone] [place], [place] [address] Social History Tobacco Use Types Packs/Day Years [...] in this encounter Progress Notes Danette Maxwell, LORRY WEIGHER - 04/18/2018 10:40 AM EDT ID and [...] right popliteal-pedal bypass at [facility] ? Plan: 1. A review of [...] Zulma Dolan MD [facility] [address], [place] [address] (Wo rk) 05/28/2022 Laboratory Appointment Lab 05/28/2022 Office Visit Cardiology Zulma Dolan MD [facility] [place] [address] Liz Poole PA [facility] [place] [address] 06/10/2022 Office Visit Dermatology Laura Scherer MD [facility] DR [address] [place], [place] [address] (Wo rk) documented as of this encounter Results ECHOCARDIOGRAM COMPLETE W CONTRAST (08/15/2018 7:55 AM EST) P athologist Signature EF 35 [facility] Anatomical Region Laterality Modality Other Specimen (Source) Anatomical Location Collection Method / Collectio n Time Received Time / Laterality Volume 08/15/2018 Narrative 08/15/2018 8:18 AM EST Procedure: ?Transthoracic Echocardiogram Patient: ?NATALYA Mccollum ? (Age): 1945(73y) Med Rec#: ? [id number] ?Sex: ?M ? Site Loc: ? [facility] ?Ht / Wt: ??172(cm)/81(kg) Pt. Loc: ?Echo Lab ?BSA: ?1.94 Study Date: ?? 08/15/2018 ?Pt. Type: Outpatient Tape: ? Referring: MARY ELLEN Reading: Scott Ortega ([id number]) [place] Former: Laura Sargent Diagnosis: *Chronic systolic (congestive) heart [...] E-wave Vmax ?1.2 ?m/sec ? MV deceleration ihja262.4 ? msec ? MV A-wave Vmax ?0.7 [...] ? Mid-Inferior ?Hypokinetic ? Mid-Inferoseptal ?Hypokinetic ? Nabb-Septal ? Akinetic ? Nabb-Anterior ? Hypokinetic ? Nabb-Lateral ?Akinetic ? Nabb-Inferior ? Hypokinetic ? Nabb-Tip ?Akinetic ? This report has been electronically sign ed by: _ Scott Ortega M.D. ? 08/15/2018 08:17:26 Images reviewed and interpretation verif ied [facility] Cardiac Ultrasound Laboratory Procedure Note Scott Ortega MD - 08/15/2018Format ting of this note might be different from the original. Procedure: Transthoracic Echocardiogram Patient: NATALYA MCBRIDE(Age): [birth year]73y) Med Rec#: [id number] Sex: M Site Loc: [facility] Ht / Wt: 172(cm)/81(kg) Pt. Loc: Echo Lab BSA: 1.94 Study Date: 08/15/2018 Pt. Type: Outpati ent Tape: Referring: MARY ELLEN Reading: Scott Oretga ([id number]) [place] Former: Laura Sargent Diagnosis: *Chronic systolic (congestive) heart [...] MV E-wave Vmax 1.2 m/sec MV deceleration nqmm722.4 msec MV A-wave Vmax 0.7 m/sec MV [...] Akinetic Mid-Posterolateral Akinetic Mid-Inferior Hypokinetic Mid-Inferoseptal Hypokinetic Nabb-Septal Akinetic Nabb-Anterior Hypokinetic Nabb-Lateral Akinetic Nabb-Inferior Hypokinetic Nabb-Tip Akinetic This report has been electronically sign ed by: _ Scott Ortega M.D. 08/15/2018 08:17: 26 Images reviewed and interpretation verif ied [facility] Cardiac Ultrasound Laboratory Danette Maxwell APRN ECHO ORDERABLES (ABNORMAL) Basic Metabolic Panel (non-fasting) (04/18/2018 9:19 AM EDT) P athologist Signature Glucose Lvl 167 65 - 199 [facility] mg/dL [facility] Comment: [...] Gap 23 (H) 5 - 15 mmol/L [facility] [...] of body mass or the acutely ill. http://[employer], [employer]./[facility] eGFR 70 >=60 mL/min/1.73 m?? [facility] Comment: The eGFR was calculated using the CKD-EP I equation. As with all creatinine based estimates of kidney function, eGFR values calculated with the CKD-EPI equation are not accurate in patients wi th acute kidney failure, extremes of body mass or the acutely ill. http://[employer], [employer]./[facility] Specimen Anatomical Collection Method Collection Time Receive d Time (Source) Location / / Volume Laterality Blood specimen 04/18/2018 9:19 AM 018 9:34 (specimen) EDT AM EDT Resulting Agency Comment Spec In Lab Danette Maxwell APRN CHEMISTRY ORDERABLES Performing Organization Address City/State/[place] [address] (ABNORMAL) pro-Brain Natriuretic Peptide (04/18/2018 9:19 AM EDT) P athologist Signature ProBNP 2,199 (H) <=125 [facility] pg/mL [facility] Specimen Anatomical Collection Method Collection Time Receive d Time (Source) Location / / Volume Laterality Blood specimen 04/18/2018 9:19 AM 018 9:34 (specimen) EDT AM EDT Resulting Agency Comment Spec In Lab Danette Maxwell APRN CHEMISTRY ORDERABLES Performing Organization Address City/State/[place] [address] documented in this encounter Visit Diagnoses Diagnosis Chronic systolic heart failure On amiodarone therapy Ischemic cardiomyopathy Other specified forms of chronic ischemi c heart disease ASCVD (arteriosclerotic cardiovascular d isease) Unspecified cardiovascular disease Chronic systolic heart failure documented in this encounter Care Teams J2Ee Engineer Relationship Specialty Start Date End Date Lovely Vicente MD PCP - General 04/16/[address] [place] [address] documented as of this encounter
--- OUTSIDE RECORDS SUMMARY | 2022-04-06 10:37 | XMS_ITS | Encounter Summary ---
:1945 [place] [address] Care Team Providers Name Role Phone Lovely Vicente MD Primary Care Provider Encounter Details Date Type Department Care Team Description 12/07/2021 Ancillary Procedure [facility] Lovely murillo MD [facility] [address] [address] [place], [place] [phone] (Wo lissa) [address] [phone] Social History Tobacco Use Types Packs/Day Years [...] Description 05/28/2022 Appointment Cardiology Zulma Dolan MD [facility] [address] [place] [address] (Wo rk) 05/28/2022 Laboratory Appointment Lab 05/28/2022 Office Visit Cardiology Zulma Dolan MD [facility] [place] [address] Liz Poole PA [facility] [place] [address] 06/10/2022 Office Visit Dermatology Laura Scherer MD [facility] [address] [place], [place] [address] (Wo rk) documented as of [...] Organization Address City/State/ZIP Code Phon e Number [place], [place] documented in this encounter Visit Diagnoses Not on filedocumented in this encounter Care Teams Polarity Tester Relationship Specialty Start Date End Date Lovely Vicente MD PCP - General 04/16/[address] [place] [address] documented as of this encounter
--- OUTSIDE RECORDS SUMMARY | 2022-04-06 10:37 | XMS_ITS | Encounter Summary ---
:1945 Author Organization [facility] Address [facility] [place] [address] Care Team Providers Name Role Phone Lovely Vicente MD Primary Care Provider Encounter Details Date Type Department Care Team Description 01/02/2020 Office Visit Dermatology at [facility] ctinic keratoses; Abdelrahman HOOPER MD History of melanoma; [address] [facility] History of dysplastic nevus; [place] [address] Multiple benign nevi; [phone] [facility] Seborrheic yossi [place]; RD-DERMATOLGY Skin exam for malignant neoplasm [place], [place] [address] Social History Tobacco Use Types [...] MD [facility] Dr [place], [place] [address] (Wo lissa) 05/28/2022 Laboratory Appointment Lab 05/28/2022 Office Visit Cardiology Zulma Dolan MD [facility] [place] [address] Liz Poole PA [facility] [place] [address] 06/10/2022 Office Visit Dermatology Laura Scherer MD [facility] DR [address] [place], [place] [address] (Wo lissa) documented as of [...] skin documented in this encounter Care Teams Heavy Machinery Assembler Relationship Specialty Start Date End Date Lovely Vicente MD PCP - General 04/16/15 [facility] [address] [place] [address] documented as of this encounter
--- OUTSIDE RECORDS SUMMARY | 2022-04-06 10:37 | XMS_ITS | Encounter Summary ---
:1945 [place] [address] Care Team Providers Name Role Phone Lovely Vicente MD Primary Care Provider Encounter Details Date Type Department Care Team Description 11/29/2017 Hospital Encounter Radiology Library at Estefany Maxwell Pain [facility] [place] [address] CARDIOLOGY [phone] [place], [place] [address] (Wo rk) Social History Tobacco [...] Cardiology Zulma Dolan MD [facility] [place], [place] [address] (Wo rk) 05/28/2022 Laboratory Appointment Lab 05/28/2022 Office Visit Cardiology Zulma Dolan MD [facility] [place] [address] Liz Poole PA [facility] [place] [address] 06/10/2022 Office Visit Dermatology Laura Scherer MD [facility] DR [address] [place], [place] [address] (Wo rk) documented as of [...] Organization Address City/State/ZIP Code Phon e Number [place], [place] documented in this encounter Visit Diagnoses Diagnosis Pain Generalized pain documented in this encounter Care Teams Shrinker Relationship Specialty Start Date End Date Lovely Vicente MD PCP - General 04/16/[address] [place] [address] documented as of this encounter
--- OUTSIDE RECORDS SUMMARY | 2022-04-06 10:37 | XMS_ITS | Encounter Summary ---
:1945 Author Organization [facility] [place] [address] Care Team Providers Name Role Phone Lovely Vicente MD Primary Care Provider Encounter Details Date Type Department Care Team Description 04/18/2018 Laboratory Appointment Lab 3L [facility] [place] [phone] Social History Tobacco Use Types Packs/Day Years [...] MD [facility] er [place], [place] [address] (Wo rk) 05/28/2022 Laboratory Appointment Lab 05/28/2022 Office Visit Cardiology Zulma Dolan MD [facility] [place] [address] Liz Poole PA [facility] [place] [address] 06/10/2022 Office Visit Dermatology Laura Scherer MD [facility] ER DR [address] [place], [place] [address] (Wo rk) documented as of [...] Signature Total Protein 7.6 6.1 - 8.0 [facility] RYAN gm/dL [facility] Albumin 4.0 3.2 - 5.2 [facility] RYAN gm/dL [facility] AST 36 0 - 39 [facility] unit/L [facility] ALT 27 0 - 55 [facility] RYAN unit/L [facility] Alk Phos 96 40 - 120 [facility] R[facility]AN unit/L [facility] Total 0.7 0.2 - 1.3 [place] [employer] Bilirubin mg/dL [facility] Bili, Direct 0.1 0.0 - 0.3 [facility] RYAN mg/dL [facility] Specimen Anatomical Collection Method Collection Time Receive d Time (Source) Location / / Volume Laterality Blood specimen Venous Draw / 04/18/2018 9:19 AM 2017 9:44 (specimen) Unknown EDT AM EDT Resulting Agency Comment Spec In Lab Danette Maxwell APRN CHEMISTRY ORDERABLES Performing Organization Address City/State/[place] [address] TSH (04/18/2018 9:19 AM EDT) athologist Signature TSH 1.77 0.27 - 4.20 [place] mlU/ML [facility] Specimen Anatomical Collection Method Collection Time Receive d Time (Source) Location / / Volume Laterality Blood specimen Venous Draw / 04/18/2018 9:19 AM 2017 9:44 (specimen) Unknown EDT AM EDT Resulting Agency Comment Spec In Lab Danette Maxwell APRN CHEMISTRY ORDERABLES Performing Organization Address City/State/Z[place] [address] (ABNORMAL) Basic Metabolic Panel (non-fasting) (04/18/2018 9:19 AM EDT) athologist Signature Glucose Lvl 167 65 - 199 [place] mg/dL [facility] Comment: Diabetes: >=200 mg/dL [...] of body mass or the acutely ill. http://[employer]./DHMCnkf eGFR 70 >=60 mL/min/1.73 m?? [facility] Comment: The eGFR was calculated using the CKD-EP I equation. As with all creatinine based estimates of kidney function, eGFR values calculated with the CKD-EPI equation are not accurate in patients wi th acute kidney failure, extremes of body mass or the acutely ill. http://[employer]DHnkf Specimen Anatomical Collection Method Collection Time Receive d Time (Source) Location / / Volume Laterality Blood specimen 04/18/2018 9:19 AM 018 9:34 (specimen) EDT AM EDT Resulting Agency Comment Spec In Lab Danette Maxwell APRN CHEMISTRY ORDERABLES Performing Organization Address City/[facility]/ZIP [place] [address] (ABNORMAL) pro-Brain Natriuretic Peptide (04/18/2018 9:19 AM EDT) P athologist Signature ProBNP 2,199 (H) <=125 [facility] pg/mL [facility] Specimen Anatomical Collection Method Collection Time Receive d Time (Source) Location / / Volume Laterality Blood specimen 04/18/2018 9:19 AM 018 9:34 (specimen) EDT AM EDT Resulting Agency Comment Spec In Lab Danette Maxwell APRN CHEMISTRY ORDERABLES Performing Organization Address City/[facility]/ZIP [place] [address] documented in this encounter Visit Diagnoses Diagnosis Chronic systolic heart failure documented in this encounter Care Teams Shared Services Representative Relationship Specialty Start Date End Date Lovely Vicente MD PCP - General 04/16/[address] [place] [address] documented as of this encounter
--- OUTSIDE RECORDS SUMMARY | 2022-04-06 10:37 | XMS_ITS | Encounter Summary ---
:1945 [place] [address] Care Team Providers Name Role Phone Lovely Vicente MD Primary Care Provider Reason for Visit Reason Comments Skin Cancer Examination Encounter Details Date Type Department Care Team Description 03/20/2021 Office Visit Dermatology at [facility] Brennen Rene MD History of melanoma; [facility] History of dysplastic nevus; [address] Multiple benign nevi; [place] [address] [facility] SK (seborrheic keratosis); [phone] [address]-DERMATOLOGY [place] (actinic keratosis) [place], [place] [address] Social History Tobacco Use Types [...] no SOCIAL HISTORY 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 Reviewed and signed by: LAURA RENE MD Dermatology [facility] documented in this encounter Plan of Treatment Upcoming Encounters Date Type Specialty Care Team Description 05/28/2022 Appointment Cardiology TrudiZulma Knowles MD [facility] [place], [place] [address] (Wo rk) 05/28/2022 Laboratory Appointment Lab 05/28/2022 Office Visit Cardiology Zulma Dolan MD [facility] [place] [address] Liz Poole PA [facility] [place] [address] 06/10/2022 Office Visit Dermatology Laura Rene MD [facility] [address] [place], [place] [address] (Wo rk) documented as of this encounter Visit Diagnoses Diagnosis History of melanoma Personal history of malignant melanoma o f skin History of dysplastic nevus Personal history of diseases of skin and subcutaneous tissue Multiple benign nevi Benign neoplasm of skin, site unspecifie d [place] (seborrheic keratosis) Other seborrheic keratosis [place] (actinic keratosis) Actinic keratosis documented in this encounter Care Teams Veneer Trimmer Relationship Specialty Start Date End Date Lovely Vicente MD PCP - General 04/16/[address] [place] [address] documented as of this encounter
--- OUTSIDE RECORDS SUMMARY | 2022-04-06 10:37 | XMS_ITS | Encounter Summary ---
:1945 Author Organization [facility] [place] [address] Care Team Providers Name Role Phone Lovely Vicente MD Primary Care Provider Encounter Details Date Type Department Care Team Description 12/07/2021 External Results Administration [facility] [place] [address] Social History Tobacco Use Types Packs/Day [...] MD [facility] er [address] [place] [place] [address] (Wo rk) 05/28/2022 Laboratory Appointment Lab 05/28/2022 Office Visit Cardiology Zulma Dolan MD [facility] [place] [address] Liz Poole PA [facility] [place] [address] 06/10/2022 Office Visit Dermatology Laura Scherer MD [facility] ER DR [address] [place], [place] [address] (Wo rk) documented as of [...] on filedocumented in this encounter Care Teams Underground Mine Machinery Mechanic Relationship Specialty Start Date End Date Lovely Vicente MD PCP - General 04/16/[address] [place] [address] documented as of this encounter
--- OUTSIDE RECORDS SUMMARY | 2022-04-06 10:37 | XMS_ITS | Encounter Summary ---
:1945 Author Organization [place] [address] Care Team Providers Name Role Phone Lovely Vicente MD Primary Care Provider Encounter Details Date Type Department Care Team Description 08/15/2018 Office Visit Cardiology at [facility] Danette Maxwell Chronic systolic heart failu re; [facility] A, BILINGUAL HR GENERALIST Cardiomyopathy, ischemic; [facility] ASCVD (arteriosclerotic card iovascular disease); [place], [place] Essential hypertension; [phone] CARDIOLOGY MARIA VICTORIA on CPAP [phone] [place], [place] [address] Social History Tobacco Use Types [...] in this encounter Progress Notes Danette Maxwell, BILINGUAL HR GENERALIST - 08/15/2018 9:00 AM EST Images from [...] K+ 4.6 today 6. Post-op atrial fibrillation [id number] (CHF, HTN, DM, vascular disease, thromboembolism) [...] MD [facility] [address] [place] [address] (Wo rk) 05/28/2022 Laboratory Appointment Lab 05/28/2022 Office Visit Cardiology Zulma Dolan MD [facility] [place] [address] Liz Poole PA [facility] [place] [address] 06/10/2022 Office Visit Dermatology Laura Scherer MD [facility] ER [address]-DERMAT OLOGY [place], [place] [address] (Wo rk) documented as of this encounter Results Lipid Panel (08/15/2018 8:04 AM EST) athologist Signature Chol, Total 75 mg/dL [facility] Comment: Lower Risk: <200 mg/dL Average Risk: 200-239 mg/dL Higher Risk: >sf=656 mg/dL Triglycerides 185 mg/dL [facility] Comment: Average Risk/Lower Risk: <150 mg/dL Borderline High Risk: 150-199 mg/dL High Risk: 200-499 mg/dL Very High Risk: >wt=911 mg/dL HDL 32 mg/dL [facility] Comment: Males: ?? Higher Risk: <40 mg/dL Females: ?? HIgher Risk: <50 mg/dL LDL Cholesterol 6 mg/dL [facility] Comment: Lowest Risk: <100 mg/dL Lower Risk: 100-129 mg/dL Borderline High Risk: 130-159 mg/dL High Risk: 160-189 mg/dL Very High Risk: >ii=747 mg/dL Chol/HDL Ratio 2.3 ratio [facility] Lipid Interpretation See Note [facility] Comment: Lipid management should be guided by a p atient? s ASCVD risk, goals and preferences. ACC/AHA Guidelines recommend high intens ity statin if clinical ASCVD or LDL greater than or equal to 190 mg/dL. http://Key Travelurl.com/MQK-JSC-Wnvgovwcc Adults aged 40-75 with LDL 70-189 mg/dL should have their 10 year ASCVD risk estimated with the ACC/AHA ASCVD risk es timator http://tools.acc.org/BBRKK-Ylgw-Wqcvlyva r/ Statin should be discussed if risk [...] Organization Address City/State/[place] [address] (ABNORMAL) Basic Metabolic Panel (non-fasting) (08/15/2018 8:04 AM EST) P athologist Signature Glucose Lvl 116 65 - 199 [facility] mg/dL [facility] [...] of body mass or the acutely ill. http://FohBoh/[facility]INIT[facility]kf eGFR 79 >=60 mL/min/1.73 m?? [facility] Comment: The eGFR was calculated using the CKD-EP I equation. As with all creatinine based estimates of kidney function, eGFR values calculated with the CKD-EPI equation are not accurate in patients wi th acute kidney failure, extremes of body mass or the acutely ill. http://FohBoh/[facility]INIT[facility]kf Specimen Anatomical Collection Method Collection Time Receive d Time (Source) Location / / Volume Laterality Blood specimen 08/15/2018 8:04 AM 019 8:20 (specimen) EST AM EST Resulting Agency Comment Spec In Lab Danette Maxwell APRN CHEMISTRY ORDERABLES Performing Organization Address City/State/ZIP Code Phon e Number [address] (ABNORMAL) pro-Brain Natriuretic Peptide (08/15/2018 8:04 AM EST) P athologist Signature ProBNP 1,797 (H) <=125 [facility] pg[facility]mL [facility] Specimen Anatomical Collection Method Collection Time Receive d Time (Source) Location / / Volume Laterality Blood specimen 08/15/2018 8:04 AM 019 8:20 (specimen) EST AM EST Resulting Agency Comment Spec In Lab Danette Maxwell APRN CHEMISTRY ORDERABLES Performing Organization Address City/State/[place] [address] documented in this encounter Visit Diagnoses Diagnosis Chronic systolic heart failure Cardiomyopathy, ischemic Other specified forms of chronic ischemi c heart disease ASCVD (arteriosclerotic cardiovascular d isease) Unspecified cardiovascular disease Essential hypertension Unspecified essential hypertension MARIA VICTORIA on CPAP Obstructive sleep apnea (adult) (pediatr ic) documented in this encounter Care Teams Distribution Spec Relationship Specialty Start Date End Date Lovely Vicente MD PCP - General 04/16/[address] [place] [address] documented as of this encounter
--- OUTSIDE RECORDS SUMMARY | 2022-04-06 10:37 | XMS_ITS | Encounter Summary ---
:1945 Author Organization [facility] [place] [address] Care Team Providers Name Role Phone Lovely Vicente MD Primary Care Provider Encounter Details Date Type Department Care Team Description 04/16/2021 Laboratory Appointment Lab 3L [facility] [place] [id number] Social History Tobacco Use Types Packs/Day Years [...] MD [facility] er [place], [place] [address] (Wo rk) 05/28/2022 Laboratory Appointment Lab 05/28/2022 Office Visit Cardiology Zulma Dolan MD [facility] [place] [address] Liz Poole PA [facility] [place] [address] 06/10/2022 Office Visit Dermatology Laura Scherer MD [facility] ER DR TE[address]DERMAT [place], [place] [address] (Wo rk) documented as of this encounter [...] Organization Address City/State/[place] [address] (ABNORMAL) Basic Metabolic Panel (non-fasting) (04/16/2021 9:58 AM EDT) athologist Signature Glucose Lvl 77 65 - 199 [facility] mg/dL [facility] Comment: Diabetes: >=200 mg/dL plus symp toms BUN 23 (H) 10 - 20 mg/dL [facility] Creatinine 1.26 0.80 - 1.50 mg/dL [facility] Estimated GFR 55 (L) >=60 [...] Organization Address City/State/[place] [address] documented in this encounter Visit Diagnoses Diagnosis Chronic systolic heart failure documented in this encounter Care Teams Automation And Controls Supervisor Relationship Specialty Start Date End Date Lovely Vicente MD PCP - General 04/16/[address] [place] [address] documented as of this encounter
--- OUTSIDE RECORDS SUMMARY | 2022-04-06 10:37 | XMS_ITS | Encounter Summary ---
:1945 Author Organization [facility] [place] [address] Care Team Providers Name Role Phone Lovely Vicente MD Primary Care Provider Encounter Details Date Type Department Care Team Description 11/29/2017 Hospital Encounter Vascular Lab at [facility] PAD (peripheral [facility] RVT artery [facility]) [place] [address] Social History Tobacco Use Types Packs/Day Years [...] Dolan MD [facility] [address] [place], [place] [address] (Wo rk) 05/28/2022 Laboratory Appointment Lab 05/28/2022 Office Visit Cardiology Zulma Dolan MD [facility] [place] [address] Liz Poole PA [facility] [place] [address] 06/10/2022 Office Visit Dermatology Laura cSherer MD [facility] DR [address]MAT OLOGY [place], [place] [address] (Wo rk) documented as of this encounter Procedures Procedure Name Priority Date/Time Associated Diagnosis Comme nts ARTERIAL DUPLEX LEG Routine 11/29/2017 10:32 AM PAD (periphera l Results for this UNILA EDT artery disease) procedure ar e in the results section. documented in this encounter Results Arterial Duplex Leg, Unil (11/29/2017 10:32 AM EDT) Component Value Ref Test Analysis Performed At [facility] Range Method Time Signature VB Text Department: Vascular Surgery Lab VASCUBASE Report Patient: [id number] (DON HOANG) CPT: 01456 ICD10: I72.4;I73.9 Referring Physician: DANETTE MAXWELL ?? [...] unspecified documented in this encounter Care Teams Collateral Specialist Relationship Specialty Start Date End Date Lovely Vicente MD PCP - General 04/16/[address] [place], [place] [address]Y [facility] [address] [place] [address] documented as of this encounter
--- OUTSIDE RECORDS SUMMARY | 2022-04-06 10:37 | XMS_ITS | Encounter Summary ---
:1945 Author Organization [facility] [place] [address] Care Team Providers Name Role Phone Lovely Vicente MD Primary Care Provider Encounter Details Date Type Department Care Team Description 11/07/2019 TH Visit Cardiology at [facility] Danette Maxwell (arteriosclerotic heart disease); (TeleHealth) [facility] STACIE Gomes Cardiomyopathy, ischemic; Drive [facility] S/P CABG x 3; [place], [place] MARIA VICTORIA (obstructive sleep apnea) on CPAP [phone] CARDIOLOGY [phone] [place], [place] [address] Social History Tobacco Use Types [...] regurgitation present. 07/07/2019 - 07/21/2019 Zio Patch It Consulting Director The patient had a minimum heart [...] at last check 6. Post-op atrial fibrillation [id number] (CHF, HTN, DM, vascular disease, thromboembolism) Amiodarone discontinued Continue coumadin INR managed by PCP 7. PAD 08/06/2017: Right 1st, 2nd, 3rd toe amputation 08/11/2017: Left??femoral arterial access, RLE??angiogram, Balloon angioplasty of R PT with Eleazar 2.5 x 80 10/25/2017: right popliteal-pedal bypass at [facility] Continue Coumadin 8. Hypothyrodism S/p thyroidectomy for [...] Dolan MD [facility] [place], [place] [address] (Wo rk) 05/28/2022 Laboratory Appointment Lab 05/28/2022 Office Visit Cardiology Zulma Dolan MD [facility] [place] [address] Liz Poole PA [facility] [place] [address] 06/10/2022 Office Visit Dermatology Laura Scherer MD [facility] DR [address]DERMAT [place], [place] [address] (Wo rk) documented as of this encounter Visit Diagnoses Diagnosis ASHD (arteriosclerotic heart disease) Coronary atherosclerosis of unspecified type of vessel, bishop paiute or graft Cardiomyopathy, ischemic Other specified forms of chronic ischemi c heart disease S/P CABG x 3 Postsurgical aortocoronary bypass status MARIA VICTORIA (obstructive sleep apnea) on CPAP Obstructive sleep apnea (adult) (pediatr ic) documented in this encounter Care Teams Process Improvement Consultant Relationship Specialty Start Date End Date Lovely Vicente MD PCP - General 04/16/[address] [place], [place] [address] documented as of this encounter
--- OUTSIDE RECORDS SUMMARY | 2022-04-06 10:38 | XMS_ITS | Encounter Summary ---
:1945 Author Organization [facility] [place] [address] Care Team Providers Name Role Phone Lovely Vicente MD Primary Care Provider Encounter Details Date Type Department Care Team Description 08/19/2017 Office Visit Vascular Surgery at [place], PAD (peripheral artery [facility] INPATIENT NURSING AIDE disease) [facility] [address] [place], [place] VASCULAR SURGERY [address] [place] [address] [phone] Social History Tobacco Use Types Packs/Day Years [...] Zulma Dolan MD [facility] [place], [place] [address] (Wo rk) 05/28/2022 Laboratory Appointment Lab 05/28/2022 Office Visit Cardiology Zulma Dolan [place] [address] Liz Poole PA [facility] [place] [address] 06/10/2022 Office Visit Dermatology Laura Scherer MD [facility] DR [address] [place], [place] [address] (Wo rk) documented as of this encounter Visit Diagnoses Diagnosis PAD (peripheral artery disease) Peripheral vascular disease, unspecified documented in this encounter Care Teams Scientific Photographer Relationship Specialty Start Date End Date Lovely Vicente MD PCP - General 04/16/[address] [place] [address] documented as of this encounter
--- OUTSIDE RECORDS SUMMARY | 2022-04-06 10:38 | XMS_ITS | Encounter Summary ---
:1945 Author Organization [facility] [place] [address] Care Team Providers Name Role Phone Lovely Vicente MD Primary Care Provider Encounter Details Date Type Department Care Team Description 09/07/2017 Office Visit Endocrinology at [facility] Maria Ines Stallings of [facility] [place] [address] CENTER [phone] ENDOCRINOLOGY DEPT [place], [place] [address] Social History Tobacco Use Types [...] Dolan MD [facility] er Dr [place], [place] [address] (Wo rk) 05/28/2022 Laboratory Appointment Lab 05/28/2022 Office Visit Cardiology Zulma Dolan MD [facility] [place] [address] Liz Poole PA [facility] [place] [address] 06/10/2022 Office Visit Dermatology Laura Scherer MD [facility] ER DR [address]MAT [place], [place] [address] (Wo rk) documented as of this encounter Visit Diagnoses Diagnosis Hx of papillary thyroid carcinoma Personal history of malignant neoplasm o f thyroid documented in this encounter Care Teams Textile Engineer Relationship Specialty Start Date End Date Lovely Vicente MD PCP - General 04/16/[address] [facility] [address] [place] [address] documented as of this encounter
--- OUTSIDE RECORDS SUMMARY | 2022-04-06 10:38 | XMS_ITS | Encounter Summary ---
:1945 Author Organization [facility] [place] [address] Care Team Providers Name Role Phone Lovely Vicente MD Primary Care Provider Encounter Details Date Type Department Care Team Description 10/07/2017 Laboratory Appointment Lab 3L [facility] [place] [phone] Social History Tobacco Use Types Packs/Day Years [...] MD [facility] er Dr [place], [place] [address] (Wo rk) 05/28/2022 Laboratory Appointment Lab 05/28/2022 Office Visit Cardiology Zulma Dolan MD [facility] [place] [address] Liz Poole PA [facility] [place] [address] 06/10/2022 Office Visit Dermatology Laura Scherer MD [facility] ER DR TE[address] GR-DERMAT ENIDReal [facility] [place] Amy (Wo rk) documented as of [...] Lvl 99 65 - 199 [facility] mg/dL [facility] Comment: Diabetes: [...] MEDICAL CENTER LABORATORY Estimated GFR >60 >=60 [facility] Comment: The reported eGFR should be multiplied b y 1.2 for patients. The MDRD is not an appropriate measure o f renal function for patients with body mass extremes or in patients with acute kidney failure. http://Keraderm.Green Energy Options/DHnkdep http://Keraderm.Green Energy Options/DHMCnkf Specimen Anatomical Collection Method Collection Time Receive d Time (Source) Location / / Volume Laterality Blood specimen 10/07/2017 8:48 AM 018 8:50 (specimen) EDT AM EDT Resulting Agency Comment Spec In Lab Danette Maxwell IC DESIGNER CUSTOM CHEMISTRY ORDERABLES Performing Organization Address City/[facility]/ZIP Code Phon e Number [address] (ABNORMAL) pro-Brain Natriuretic Peptide (10/07/2017 8:48 AM EDT) athologist Signature ProBNP 1,170 (H) <=125 [facility] pg/mL [facility] Specimen Anatomical Collection Method Collection Time Receive d Time (Source) Location / / Volume Laterality Blood specimen 10/07/2017 8:48 AM 018 8:50 (specimen) EDT AM EDT Resulting Agency Comment Spec In Lab Danette A Hans QUINONES CHEMISTRY ORDERABLES Performing Organization Address City/State/[place] [address] documented in this encounter Visit Diagnoses Diagnosis Chronic systolic heart failure documented in this encounter Care Teams Replanting Machine Operator Relationship Specialty Start Date End Date Lovely Vicente MD PCP - General 04/16/[address] [place] [address] documented as of this encounter
--- OUTSIDE RECORDS SUMMARY | 2022-04-06 10:38 | XMS_ITS | Encounter Summary ---
:1945 Author Organization [facility] [place] [address] Care Team Providers Name Role Phone Lovely Vicente MD Primary Care Provider Reason for Visit Reason Onset Date Comments VNA Calls 08/30/2017 Encounter Details Date Type Department Care Team Description 08/30/2017 Telephone Vascular Surgery at [facility] Cora Reid RN VNA Calls [facility] [place] [address] Social History Tobacco Use Types Packs/Day [...] AM EST Caller: Alfonso at [facility] [phone] Reason for call: Changing his wound vac [...] had been in contact with [facility]'s Wound Care Nurse who advised [...] Zulma Dolan MD [facility] [address] [place], [place] [address] (Wo rk) 05/28/2022 Laboratory Appointment Lab 05/28/2022 Office Visit Cardiology Zulma Dolan MD [facility] [place] [address] Liz Poole PA [facility] [place] [address] 06/10/2022 Office Visit Dermatology Laura Scherer MD [facility] [address] [place], [place] [address] (Wo rk) documented as of this encounter Visit Diagnoses Not on filedocumented in this encounter Care Teams Fiberglass Ski Maker Relationship Specialty Start Date End Date Lovely Vicente MD PCP - General 04/16/[address] [place] [address] documented as of this encounter
--- OUTSIDE RECORDS SUMMARY | 2022-04-06 10:38 | XMS_ITS | Encounter Summary ---
:1945 Author Organization [facility] [place] [place] [address] Care Team Providers Name Role Phone Lovely Vicente MD Primary Care Provider Encounter Details Date Type Department Care Team Description 10/05/2017 Telephone Cardiology at [facility] Tamiko Sin MD [facility] [place] [address] CARDIOLOGY DEPT [phone] [place], [place] [address] (Wo rk) Social History Tobacco [...] MD [facility] er Dr [place] 0[address] (Wo rk) 05/28/2022 Laboratory Appointment Lab 05/28/2022 Office Visit Cardiology Zulma Dolan MD [facility] [place] [address] Liz Poole PA [facility] [place] [address] 06/10/2022 Office Visit Dermatology Laura Scherer MD [facility] ER DR [address]MAT [place], [place] [address] (Wo rk) documented as of this encounter Visit Diagnoses Not on filedocumented in this encounter Care Teams Steel Plate Printer Relationship Specialty Start Date End Date Lovely Vicente MD PCP - General 04/16/[address] [place] [address] documented as of this encounter
--- OUTSIDE RECORDS SUMMARY | 2022-04-06 10:38 | XMS_ITS | Encounter Summary ---
:1945 Author Organization [facility] [place] [address] Care Team Providers Name Role Phone Lovely Vicente MD Primary Care Provider Encounter Details Date Type Department Care Team Description 08/30/2017 [facility] ischemia [facility] [address] [place], [place] VASCULAR SURGERY [address] [place] [address] [phone] Social History Tobacco Use Types Packs/Day Years [...] Smith MD - 08/30/2017 2:00 PM EST [facility]: Patient returns. He is [...] Dolan MD [facility] Dr [place], [place] [address] (Wo rk) 05/28/2022 Laboratory Appointment Lab 05/28/2022 Office Visit Cardiology Zulma Dolan MD [facility] [place] [address] Liz Poole PA [facility] [place] [address] 06/10/2022 Office Visit Dermatology Laura Scherer MD [facility] DR [address] [place], [place] [address] (Wo rk) documented as of this encounter Visit Diagnoses Diagnosis Critical lower limb ischemia Unspecified circulatory system disorder documented in this encounter Care Teams Gas Appliance Adjuster Relationship Specialty Start Date End Date Lovely Vicente MD PCP - General 04/16/[address] [place] [address] documented as of this encounter
--- OUTSIDE RECORDS SUMMARY | 2022-04-06 10:38 | XMS_ITS | Encounter Summary ---
:1945 Author Organization [facility] [place] [address] Care Team Providers Name Role Phone Lovely Vicente MD Primary Care Provider Reason for Referral Diagnostic Test (Routine) - Closed Specialty Diagnoses / Procedures Referred By Contact Refer red To Contact Cardiology Diagnoses Ischemic cardiomyopathy Acute on chronic systolic congestive heart failure Danette Maxwell APRN [facility] Non-Inv Card Lab Procedures Echocardiogram Transthoracic(Leb) [facility] [place] [address] [place] [address] Referral ID Status Reason Start Date Expiration Date Visits V isits Requested Authorized [id number] Closed Specialty 08/30/2017 08/30/2018 1 1 Service Requested Encounter Details Date Type Department Care Team Description 08/26/2017 Office Visit Cardiology at [facility] Danette Maxwell Ischemic cardiomyopathy; [facility] STACIE Gomes Acute on chronic systolic congestive hea rt failure ; Drive [facility] ASCVD (arteriosclerotic card iovascular disease); [place], [place] PAF (paroxysmal atrial fibrillation); [address] CARDIOLOGY PAD (peripheral artery disease) [phone] [place], [place] [address] Social History Tobacco Use Types Packs/Day Years [...] painful and swollen 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 [...] Zulma Dolan MD [facility] [place], [place] [address] (Wo rk) 05/28/2022 Laboratory Appointment Lab 05/28/2022 Office Visit Cardiology Zulma Dolan [place] [address] Liz Poole PA [facility] [place] [address] 06/10/2022 Office Visit Dermatology Laura Scherer MD [facility] [address] [place], [place] [address] (Wo rk) documented as of this encounter Results ECHOCARDIOGRAM COMPLETE W CONTRAST (10/07/2017 10:23 AM EDT) athologist Signature EF 45 HEART[facility] SYSTEM Anatomical Region Laterality Modality Other Specimen (Source) Anatomical Location Collection Method / Collectio n Time Received Time / Laterality Volume 10/07/2017 Narrative 10/07/2017 11:13 AM EDT Procedure: ?Transthoracic Echocardiogram Patient: ?NATALYA Mccollum ? (Age): 1945(72y) Med Rec#: ? [id number] ?Sex: ?M ? Site Loc: ? [facility] ?Ht / Wt: ??173(cm)/82(kg) Pt. Loc: ?Echo Lab ?BSA: ?1.96 Study Date: ?? 10/07/2017 ?Pt. Type: Outpatient Tape: ? Referring: Daentte Maxwell Reading: Iker Cuevas ([id number]) Building Rigger: Yonathan Bocanegra Diagnosis: *ICD-10-PCS Ischemic cardiomyopathy (I2 [...] E-wave Vmax ?1.2 ?m/sec ? MV deceleration [id number] ?msec ? MV A-wave Vmax ?1 ?m/sec [...] ? Mid-Inferior ?Hypokinetic ? Mid-Inferoseptal ?Hypokinetic ? [place]-Septal ? Akinetic ? [place]-Anterior ? Hypokinetic ? [place]-Lateral ?Hypokinetic ? [place]-Inferior ? Hypokinetic ? [place]-Tip ?Akinetic ? This report has been electronically sign ed by: _ Iker Cuevas M.D. ? 10/07/2017 11:12:34 Images reviewed and interpretation [facility] Cardiac Ultrasound Laboratory Procedure Note Iker Cuevas MD - 10/07/2017Formatti ng of this note might be different from the original. Procedure: Transthoracic Echocardiogram Patient: NATALYA Mccollum (Age): [birth year]72y) Med Rec#: [id number] Sex: M Site Loc: [facility] Ht / Wt: 173(cm)/82(kg) Pt. Loc: Echo Lab BSA: 1.96 Study Date: 10/07/2017 Pt. Type: Outpati ent Tape: Referring: Danette Maxwell Reading: Iker Cuevas ([id number]) Building Rigger: Yonathan Bocanegra Diagnosis: *ICD-10-PCS Ischemic cardiomyopathy (I2 [...] MV E-wave Vmax 1.2 m/sec MV deceleration [id number] msec MV A-wave Vmax 1 m/sec MV [...] Akinetic Mid-Posterolateral Hypokinetic Mid-Inferior Hypokinetic Mid-Inferoseptal Hypokinetic [place]-Septal Akinetic [place]-Anterior Hypokinetic [place]-Lateral Hypokinetic [place]-Inferior Hypokinetic [place]-Tip Akinetic This report has been electronically sign ed by: _ Iker Cuevas M.D. 10/07/2017 11:12 :34 Images reviewed and interpretation [facility] Cardiac Ultrasound Laboratory Danette Maxwell APRN ECHO ORDERABLES Basic Metabolic Panel (non-fasting) (08/26/2017 2:00 PM EST) P athologist Signature Glucose Lvl 98 65 - 199 [facility] mg/dL [facility] [...] or in patients with acute kidney failure. http://[employer]/DHnkdep http://[employer]/DHMCnkf Specimen Anatomical Collection Method Collection Time Receive d Time (Source) Location / / Volume Laterality Blood specimen 08/26/2017 2:00 PM 018 2:15 (specimen) EST PM EST Resulting Agency Comment Spec In Lab Danette Maxwell APRN CHEMISTRY ORDERABLES Performing Organization Address City/State/ZIP Code Phon e Number [address] (ABNORMAL) pro-Brain Natriuretic Peptide (08/26/2017 2:00 PM EST) P athologist Signature ProBNP 2,373 (H) <=125 [facility] pg/mL [facility] Specimen Anatomical Collection Method Collection Time Receive d Time (Source) Location / / Volume Laterality Blood specimen 08/26/2017 2:00 PM 018 2:15 (specimen) EST PM EST Resulting Agency Comment Spec In Lab Danette Maxwell APRN CHEMISTRY ORDERABLES Performing Organization Address City/State/ZIP [place] [address] documented in this encounter [...] failure documented in this encounter Care Teams Crotch Breaker Relationship Specialty Start Date End Date Lovely Vicente MD PCP - General 04/16/[address] [place] [address] documented as of this encounter
--- OUTSIDE RECORDS SUMMARY | 2022-04-06 10:38 | XMS_ITS | Encounter Summary ---
:1945 Author Organization [facility] [place] [address] Care Team Providers Name Role Phone Lovely Vicente MD Primary Care Provider Encounter Details Date Type Department Care Team Description 08/25/2017 Telephone Pain Management at [facility] [place], [place] [address] Social History Tobacco Use Types Packs/Day [...] Management Center Preauthorization Request Patient: Don Fatima [id number] Fax received from [employer] denying prior authorization for Lidocaine Patches prescribed by Barbra Soares APRN. RX insurance plan: [employer] RX insurance telephone: [phone] Patient Diagnosis: right foot pain secondary to PVD and ischemia ? Previous medications attempted: Tylenol, Tramadol, Dilaudid Authorization/Reference number: [id number] _x_ denied, provider and patient informed _x_ appeal initiated by provider, patient informed Angeles Rodrigez, RN documented in this encounter Plan of Treatment Upcoming Encounters Date Type Specialty Care Team Description 05/28/2022 Appointment Cardiology Zulma Dolan MD [facility] [place], [place] [address] (Wo rk) 05/28/2022 Laboratory Appointment Lab 05/28/2022 Office Visit Cardiology Zulma Dolan MD [facility] [place] [address] Liz Poole PA [facility] [place] [address] 06/10/2022 Office Visit Dermatology Laura Scherer MD [facility] [address] [place], [place] [address] (Wo rk) documented as of this encounter Visit Diagnoses Not on filedocumented in this encounter Care Teams Edge Blacker Relationship Specialty Start Date End Date Lovely Vicente MD PCP - General 04/16/[address] [place] [address] documented as of this encounter
--- OUTSIDE RECORDS SUMMARY | 2022-04-06 10:38 | XMS_ITS | Encounter Summary ---
:1945 Author Organization [facility] [place] [address] Care Team Providers Name Role Phone Lovely Vicente MD Primary Care Provider Reason for Referral Consultation (Routine) - Specialty Diagnoses / Procedures Referred By Contact Refer red To Contact [facility] Healing [facility] Diagnoses Atheroembolism of foot, right Delayed surgical wound healing, subsequent encounter Aurelia Rivera PA [address] [facility] [place] [address] Referral ID Status Reason Start Date Expiration Date Visits V isits Requested Authorized [id number] Consult, 09/08/2017 03/07/2018 1 1 Test & Treat Reason for Visit Reason Comments Wound Check My foot hurts Encounter Details Date Type Department Care Team Description 09/07/2017 Office Visit Vascular Surgery at MiguelAurelia PA Atheroembolism of foot, right; [facility] [address] [facility] Delayed surgical wound healing, subseque nt encounter [facility] [place] [phone] [phone] Social History Tobacco Use Types Packs/Day Years [...] at home for VAC dressing changes from [facility]. Since his last visit his right forefoot wound [facility] [...] [facility] [place] MA[facility] ??? PRO AMPUTATION FOOT, TRANSMETATARSAL Right 08/09/2017 AMPUTATION, TRANSMETATARSAL (WRVU 12.71) performed by Yonathan Smith MD at [facility] [...] [facility] [place] ENDOSCOPY ??? PRO DRESSING CHANGE UNDER ANESTHESIA Right 08/11/2017 (MSURG) DRESSING CHANGE (FOR OTHER THAN IVAN) UNDER ANES. (WRVU 0.86) performed by Lamar Smith MD at [facility] MAIN OR ??? PRO ENDOSCOPY W/VIDEO-ASST VEIN [...] Dolan MD [facility] [place], [place] [address] (Wo rk) 05/28/2022 Laboratory Appointment Lab 05/28/2022 Office Visit Cardiology Zulma Dolan MD [facility] [place] [address] Liz Poole PA [facility] [place] [address] 06/10/2022 Office Visit Dermatology Laura Scherer MD [facility] [address] [place], [place] [address] (Wo rk) Scheduled Referrals Name Type Priority Associated Diagnoses Order S chedule Referral to Wound Outpatient Referral Routine Atheroembolism o f foot, Ordered: Clinic right 09/08/2017 Delayed surgical wound healing, subsequent encounter documented as of this encounter Visit Diagnoses Diagnosis Atheroembolism of foot, right Delayed surgical wound healing, subseque nt encounter documented in this encounter Care Teams Milieu Manager Relationship Specialty Start Date End Date Lovely Vicente MD PCP - General 04/16/[address] [facility] [place] [address] documented as of this encounter
--- OUTSIDE RECORDS SUMMARY | 2022-04-06 10:38 | XMS_ITS | Encounter Summary ---
:1945 Author Organization [facility] [place] [address] Care Team Providers Name Role Phone Lovely Vicente MD Primary Care Provider Encounter Details Date Type Department Care Team Description 09/03/2017 Telephone Vascular Surgery at [facility] Ninfa Clark, [place] [address] Social History Tobacco Use Types Packs/Day [...] help with the discomfort of the change. Research Home Economist told the VNA that I would ask [...] Zulma Dolan MD [facility] [place], [place] [address] (Wo rk) 05/28/2022 Laboratory Appointment Lab 05/28/2022 Office Visit Cardiology Zulma Dolan MD [facility] [place] [address] Liz Poole PA [facility] [place] [address] 06/10/2022 Office Visit Dermatology Laura Scherer MD [facility] [address] [place], [place] [address] (Wo rk) documented as of this encounter Visit Diagnoses Not on filedocumented in this encounter Care Teams Charter Coordinator Relationship Specialty Start Date End Date Lovely Vicente MD PCP - General 04/16/[address] [place] [address] [address] [facility] 1 [place] [address] documented as of this encounter
--- OUTSIDE RECORDS SUMMARY | 2022-04-06 10:38 | XMS_ITS | Encounter Summary ---
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 Bains well at [facility] and follow his wound on his right lower extremity. And she will continue to direct antibiotic treatment. Ihave asked that the echocardiogram results be faxed to Dr. Zurita at [facility]. 1. ASCVD Continue ASA, BB and statin [...] and bone removal by Dr. Aguero at [facility]. Currently receiving IV antibiotics at [facility] [...] Zulma Dolan MD [facility] [address] [place], [place] [address] (Wo rk) 05/28/2022 Laboratory Appointment Lab 05/28/2022 Office Visit Cardiology Zulma Dolan MD [facility] [place] [address] Liz Poole PA [facility] [place] [address] 06/10/2022 Office Visit Dermatology Laura Scherer MD [facility] [address] [place], [place] [address] (Wo rk) documented as of this encounter Results (ABNORMAL) Basic Metabolic Panel (non-fasting) (10/07/2017 8:48 AM EDT) athologist Signature Glucose Lvl 99 65 - 199 [facility] mg/dL [facility] [place] Comment: Diabetes: >=200 mg/dL plus symp toms BUN 27 (H) 10 - 20 mg/dL [facility] Creatinine 1.07 0.80 - 1.50 mg/dL [facility] Estimated GFR >60 >=60 [facility] Comment: The reported eGFR should be multiplied b y 1.2 for patients. The MDRD is not an appropriate measure o f renal function for patients with body mass extremes or in patients with acute kidney failure. http://[employer]/DHnkdep http://[employer]/DHMCnkf Specimen Anatomical Collection Method Collection Time Receive d Time (Source) Location / / Volume Laterality Blood specimen 10/07/2017 8:48 AM 018 8:50 (specimen) EDT AM EDT Resulting Agency Comment Spec In Lab Danette Maxwell APRN CHEMISTRY ORDERABLES Performing Organization Address City/State/[place] [address] (ABNORMAL) pro-Brain Natriuretic Peptide (10/07/2017 8:48 AM EDT) P athologist Signature ProBNP 1,170 (H) <=125 [facility] pg/mL [facility] [place] [facility] Specimen Anatomical Collection Method Collection Time Receive d Time (Source) Location / / Volume Laterality Blood specimen 10/07/2017 8:48 AM 018 8:50 (specimen) EDT AM EDT Resulting Agency Comment Spec In Lab Danette Maxwell APRN CHEMISTRY ORDERABLES Performing Organization Address City/State/[place] [address] documented in this encounter Visit Diagnoses Diagnosis Chronic systolic heart failure S/P CABG x 3 Postsurgical aortocoronary bypass status On amiodarone therapy Atrial fibrillation, unspecified type ASCVD (arteriosclerotic cardiovascular d isease) Unspecified cardiovascular disease documented in this encounter Care Teams Radiophone Operator Relationship Specialty Start Date End Date Lovely Vicente MD PCP - General 04/16/[address] [place] [address] documented as of this encounter
--- OUTSIDE RECORDS SUMMARY | 2022-04-06 10:38 | XMS_ITS | Encounter Summary ---
:1945 Author Organization [facility] [place] [address] Care Team Providers Name Role Phone Lovely Vicente MD Primary Care Provider Encounter Details Date Type Department Care Team Description 10/05/2017 Unscheduled Cardiology at [facility] RONNIE Sin PATIENT NOT SEEN Encounter [facility] Tamiko Martinez MD [facility] [address] CARDIOLOGY DEPT [phone] [place] [address] Social History Tobacco Use Types Packs/Day Years [...] MD [facility] [address] [place], [place] [address] (Wo rk) 05/28/2022 Laboratory Appointment Lab 05/28/2022 Office Visit Cardiology Zulma Dolan MD [facility] [place] [address] Liz Poole PA [facility] [place] [address] 06/10/2022 Office Visit Dermatology Laura Scherer MD [facility] [address] [place], [place] [address] (Wo rk) documented as of this encounter Visit Diagnoses Diagnosis DH PATIENT NOT SEEN documented in this encounter Care Teams Partition Setter Relationship Specialty Start Date End Date Lovely Vicente MD PCP - General 04/16/[address] [place] [address] documented as of this encounter
--- OUTSIDE RECORDS SUMMARY | 2022-04-06 10:38 | XMS_ITS | Encounter Summary ---
:1945 Author Organization [facility] [place] [address] Care Team Providers Name Role Phone Lovely Vicente MD Primary Care Provider Reason for Visit Reason Comments Follow-up Encounter Details Date Type Department Care Team Description 08/19/2017 Office Visit Cardiac Surgery at [place], Jock S/P C ABG (coronary [facility] N, artery bypass graft) [facility] [place] [place] CARDIOTHORACIC [address] SURGERY [phone] [place], [place] [address] Social History Tobacco Use [...] office. Best personal regards, Yuan [facility] MD [phone] documented in this encounter Plan of Treatment Upcoming Encounters Date Type Specialty Care Team Description 05/28/2022 Appointment Cardiology Zulma Dolan MD [facility] er [address] [place] [address] (Wo rk) 05/28/2022 Laboratory Appointment Lab 05/28/2022 Office Visit Cardiology Zulma Dolan MD [place] [address] Liz Poole PA [facility] [place] [address] 06/10/2022 Office Visit Dermatology Laura Scherer MD [facility] ER DR [address] [place] [address] (Wo rk) documented as of this encounter [...] 454 ms MUSE SYSTEM (Bezet) Calculated P Peculiar 20 degrees MUSE SYSTEM Calculated R Peculiar -29 degrees MUSE SYSTEM Calculated T Peculiar 121 degrees MUSE SYSTEM INTERPRETATION Normal sinus rhythm MUSE SYSTEM Inferior infarct (cited on or before 25-JAN-2013) Anterior 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) T wave abnormality, consider lateral ischemia Abnormal ECG When compared with ECG of 06-AUG-2017 12:37, No signif icant change was found Confirmed by MD Luci, Taurus Braun ([id number]) on 08/19/2017 1 0:37:38 PM Specimen Anatomical [...] status documented in this encounter Care Teams Beach Patrol Lieutenant Relationship Specialty Start Date End Date Lovely Vicente MD PCP - General 04/16/[address] [place] [address] documented as of this encounter
--- OUTSIDE RECORDS SUMMARY | 2022-04-06 10:38 | XMS_ITS | Encounter Summary ---
:1945 Author Organization [facility] [place] [address] Care Team Providers Name Role Phone Lovely Vicente MD Primary Care Provider Encounter Details Date Type Department Care Team Description 08/26/2017 Hospital Encounter Vascular Lab at [facility], Athero embolism of foot, right; [place], [place] Delayed surgi nusrat wound healing, [place] [phone] Social History Tobacco Use Types Packs/Day Years [...] Cardiology Zulma Dolan MD [facility] [address] [place], [place] [address] (Wo rk) 05/28/2022 Laboratory Appointment Lab 05/28/2022 Office Visit Cardiology Zulma Dolan MD [facility] [place] [address] Liz Poole PA [facility] [place] [address] 06/10/2022 Office Visit Dermatology Laura Scherer MD [facility] [address] [place], [place] [address] (Wo rk) documented as of [...] Department: Vascular Surgery Lab VASCUBASE Report Patient: [id number] (DON HOANG) CPT: 86896 ICD10: T81.89XA;I75.021 Referring Physician: ELVER BLOOM ?? [...] encounter documented in this encounter Care Teams Blindstitch Hemmer Relationship Specialty Start Date End Date Lovely Vicente MD PCP - General 04/16/[address] [place] [address] documented as of this encounter
--- OUTSIDE RECORDS SUMMARY | 2022-04-06 10:38 | XMS_ITS | Encounter Summary ---
:1945 Author Organization [facility] [place] [address] Care Team Providers Name Role Phone Lovely Vicente MD Primary Care Provider Encounter Details Date Type Department Care Team Description 09/06/2017 Telephone Vascular Surgery at [facility] Ninfa Clark, [place] [address] Social History Tobacco Use Types Packs/Day [...] Dolan MD [facility] [place], [place] [address] (Wo rk) 05/28/2022 Laboratory Appointment Lab 05/28/2022 Office Visit Cardiology Zulma Dolan MD [facility] [place] [address] Liz Poole PA [facility] [place] [address] 06/10/2022 Office Visit Dermatology Laura Scherer MD [facility] [address] [place], [place] [address] (Wo rk) documented as of this encounter Visit Diagnoses Not on filedocumented in this encounter Care Teams Superintendent Storage Area Relationship Specialty Start Date End Date Lovely Vicente MD PCP - General 04/16/[address] [place] [address] documented as of this encounter
--- OUTSIDE RECORDS SUMMARY | 2022-04-06 10:38 | XMS_ITS | Encounter Summary ---
:1945 Author Organization [facility] [place] [address] Care Team Providers Name Role Phone Lovely Vicente MD Primary Care Provider Encounter Details Date Type Department Care Team Description 09/16/2017 Hospital [place] [address] Social History Tobacco Use Types Packs/Day [...] Appointment Cardiology Zulma Dolan MD [facility] [place], [place] [address] (Wo rk) 05/28/2022 Laboratory Appointment Lab 05/28/2022 Office Visit Cardiology Zulma Dolan MD [facility] [place] [address] Liz Poole PA [facility] [place] [address] 06/10/2022 Office Visit Dermatology Laura Scherer MD [facility] [address] [place] [place], [place] [address] (Wo rk) documented as of this encounter Procedures Procedure Name Priority Date/Time Associated Diagnosis [facility]me [facility] SURGICAL PATHOLOGY Routine 09/16/2017 7:28 AM Res ults for this REPORT EST procedure are i n the results section. documented in this encounter Results Surgical Pathology Report (09/16/2017 7:28 AM EST) Component Value Ref Test Analysis Performed At [facility] Method Time Signature Surgical [id number] ? Location: [facility] Pathology JUNEAU Report The signing pathologist has (i) examined [...] Verified: ??09/24/2017 ?Pathologist Performed at: ??-[facility] Dept. [place]ology, [place], [place] CLINICAL INFORMATION Specimen Submitted: A - [...] Organization Address City/State/[place] [address] documented in this encounter Visit Diagnoses Not on filedocumented in this encounter Care Teams Needle Felt Making Machine Operator Relationship Specialty Start Date End Date Lovely Vicente MD PCP - General 04/16/[address] [place] [address] documented as of this encounter
--- OUTSIDE RECORDS SUMMARY | 2022-04-06 10:38 | XMS_ITS | Encounter Summary ---
:1945 Author Organization [facility] [place] [address] Care Team Providers Name Role Phone Lovely Vicente MD Primary Care Provider Encounter Details Date Type Department Care Team Description 08/19/2017 Hospital En[place] [facility] Martha Teague, S/P CABG x 3 1 [facility] [place] [address] [place] [address] RD [phone] GENERAL INTERNAL MEDICINE [place], [place] [address] (Wo rk) Social History [...] Zulma Dolan MD [facility] [place], [place] [address] (Wo rk) 05/28/2022 Laboratory Appointment Lab 05/28/2022 Office Visit Cardiology Zulma Dolan MD [facility] [place] [address] Liz Poole PA [facility] [place] [address] 06/10/2022 Office Visit Dermatology Laura Scherer MD [facility] [address], [place] [address] [...] 2017 EXAMINATION: XR CHEST PA AND LATERAL (BandtasticIC) CLINICAL HISTORY: CABG x 3 TECHNIQUE: PA [...] status documented in this encounter Care Teams Icu Clerk Relationship Specialty Start Date End Date Lovely Vicente MD PCP - General 04/16/[address] [place], [place] [address]Y [facility] [address] [place] [address] documented as of this encounter
--- OUTSIDE RECORDS SUMMARY | 2022-04-06 10:38 | XMS_ITS | Encounter Summary ---
:1945 Author Organization [facility] [place] [address] Care Team Providers Name Role Phone Lovely Vicente MD Primary Care Provider Reason for Referral Diagnostic Test (Routine) - Closed Specialty Diagnoses / Procedures Referred By Contact Refer red To Contact Cardiology Diagnoses Ischemic cardiomyopathy Acute on chronic systolic congestive heart failure Danette Maxwell APRN [facility] Non-Inv Card Lab Procedures Echocardiogram Transthoracic(Leb) [place] [address] [place] [address] Referral ID Status Reason Start Date Expiration Date Visits V isits Requested Authorized [id number] Closed Specialty 08/30/2017 08/30/2018 1 1 Service Requested Reason for Visit Diagnostic Test (Routine) - Closed Specialty Diagnoses / Procedures Referred By Contact Refer red To Contact Cardiology Diagnoses Ischemic cardiomyopathy Acute on chronic systolic congestive heart failure Danette Maxwell APRN [facility] Non-Inv Card Lab Procedures Echocardiogram Transthoracic(Leb) [place] [address] [place] [address] Referral ID Status Reason Start Date Expiration Date Visits V isits Requested Authorized [id number] Closed Specialty 08/30/2017 08/30/2018 1 1 Service Requested Encounter Details Date Type Department Care Team Description 10/07/2017 Hospital Encounter Non-Invasive Ischemic cardiomyopathy; Cardiology Lab Barbara Craig on chronic systolic congest[place] [address] Social History Tobacco Use Types Packs/Day [...] 05/28/2022 Appointment Cardiology Zulma Dolan MD [facility] Medical [facility] [address] [place], [place] [address] (Wo rk) 05/28/2022 Laboratory Appointment Lab 05/28/2022 Office Visit Cardiology Zulma Dolan MD [facility] [place] [address] Liz Poole PA [facility] [place] [address] 06/10/2022 Office Visit Dermatology Laura Scherer MD [facility] [address] [place], [place] [address] (Wo rk) documented as of [...] Mccollum ? (Age): 1945(72y) Med Rec#: ? [id number] ?Sex: ?M ? Site Loc: ? [facility] ?Ht / Wt: ??173(cm)/82(kg) Pt. Loc: ?Echo Lab ?BSA: ?1.96 Study Date: ?? 10/07/2017 ?Pt. Type: Outpatient Tape: ? Referring: Danette Maxwell Reading: Iker Cuevas ([id number]) Civil Engineering Drafter: Yonathan Bocanegra Diagnosis: *ICD-10-PCS Ischemic cardiomyopathy (I2 [...] E-wave Vmax ?1.2 ?m/sec ? MV deceleration waag263 ?msec ? MV A-wave Vmax ?1 ?m/sec [...] ? Mid-Inferior ?Hypokinetic ? Mid-Inferoseptal ?Hypokinetic ? [place]-Septal ? Akinetic ? [place]-Anterior ? Hypokinetic ? [place]-Lateral ?Hypokinetic ? [place]-Inferior ? Hypokinetic ? [place]-Tip ?Akinetic ? This report has been electronically sign ed by: _ Iker Cuevas M.D. ? 10/07/2017 11:12:34 Images reviewed and interpretation verif ied [facility] Cardiac Ultrasound Laboratory Procedure Note Iker Cuevas MD - 10/07/2017Formatti ng of this note might be different from the original. Procedure: Transthoracic Echocardiogram Patient: NATALYA MCBRIDE(Age): [birth year]72y) Med Rec#: [id number] Sex: M Site Loc: [facility] Ht / Wt: 173(cm)/82(kg) Pt. Loc: Echo Lab BSA: 1.96 Study Date: 10/07/2017 Pt. Type: Outpati ent Tape: Referring: Danette Maxwell Reading: Iker Cuevas ([id number]) Civil Engineering Drafter: Yonathan Bocanegra Diagnosis: *ICD-10-PCS Ischemic cardiomyopathy (I2 [...] MV E-wave Vmax 1.2 m/sec MV deceleration skzs900 msec MV A-wave Vmax 1 m/sec MV [...] Akinetic Mid-Posterolateral Hypokinetic Mid-Inferior Hypokinetic Mid-Inferoseptal Hypokinetic [place]-Septal Akinetic [place]-Anterior Hypokinetic [place]-Lateral Hypokinetic [place]-Inferior Hypokinetic [place]-Tip Akinetic This report has been electronically sign ed by: _ Iker Cuevas M.D. 10/07/2017 11:12 :34 Images reviewed and interpretation elvie hwang [facility] Cardiac Ultrasound Laboratory Danette Maxwell APRN [...] documented in this encounter Care Teams Qa Developer Relationship Specialty Start Date End Date Lovely Vicente MD PCP - General 04/16/[address] [place] [address] documented as of this encounter
--- OUTSIDE RECORDS SUMMARY | 2022-04-06 10:38 | XMS_ITS | Encounter Summary ---
:1945 Author Organization [facility] [place] [address] Care Team Providers Name Role Phone Lovely Vicente MD Primary Care Provider Reason for Visit Reason Onset Date Comments Other 11/11/2017 Please call [facility] Encounter Details Date Type Department Care Team Description 11/11/2017 Telephone Cardiology at [facility] Danette Maxwell, Other (Please call [facility] ) [place] [address] CARDIOLOGY [place], [place] [address] (Wo rk) Social History Tobacco [...] Zulma Dolan MD [facility] [address] [place], [place] [address] (Wo rk) 05/28/2022 Laboratory Appointment Lab 05/28/2022 Office Visit Cardiology Zulma Dolan MD [facility] [place] [address] Liz Poole PA [facility] [place] [address] 06/10/2022 Office Visit Dermatology Laura Scherer MD [facility] [address] [place], [place] [address] (Wo rk) documented as of this encounter Visit Diagnoses Not on filedocumented in this encounter Care Teams Mental Health Assistant Relationship Specialty Start Date End Date Lovely Vicente MD PCP - General 04/16/15 [facility] [address] [place] [address] documented as of this encounter
--- OUTSIDE RECORDS SUMMARY | 2022-04-06 10:38 | XMS_ITS | Encounter Summary ---
:1945 Author Organization [facility] [place] [address] Care Team Providers Name Role Phone Lovely Vicente MD Primary Care Provider Reason for Visit Reason Comments Follow-up I'm having trouble with the VAC Encounter Details Date Type Department Care Team Description 08/26/2017 Office Visit Vascular Surgery at [facility], STEPHANIE Mercado Atheroembolism of foot, right; [facility] [address] Delayed surgical wound healing, initial encounter; [facility] VASCULAR SURG YEHUDA Acute on chronic systolic congestive hea rt failure ; [place], [place] [address] [phone] Social History Tobacco Use Types Packs/Day Years [...] home and into the care of the [facility] However, since discharge from [facility] he has had [...] at [facility] MAIN OR ??? PRO AMPUTATION FOOT, TRANSMETATARSAL Right 08/09/2017 AMPUTATION, TRANSMETATARSAL (WRVU 12.71) performed by Yonathan Smith MD at [facility] MAIN OR ??? [...] 0.86) performed by Lamar Smith MD at [facility] MAIN OR ??? PRO ENDOSCOPY W/VIDEO-ASST VEIN HARVEST, CABG Right 07/07/2017 ENDOSCOPIC HARVEST VEIN(S) FOR CABG (WRVU 0.31) performed by Yuan Retana MD at [facility] MAIN OR ??? PRO THYROIDECTOMY 03/28/2013 THYROIDECTOMY, TOTAL OR COMPLETE performed by Manny Mcknight MD at [facility] MAIN OR Social Hx: Social History [...] Zulma Dolan MD [facility] [place], [place] [address] (Wo rk) 05/28/2022 Laboratory Appointment Lab 05/28/2022 Office Visit Cardiology Zulma Dolan MD [facility] [place] [address] Liz Poole PA [facility] [place] [address] 06/10/2022 Office Visit Dermatology Laura Scherer MD [facility] [address] [place], [place] [address] (Wo rk) documented as [...] Department: Vascular Surgery Lab VASCUBASE Report Patient: [id number] (GREGORY FATIMA) CPT: 04837 ICD10: T81.89XA;I75.021 Referring Physician: ARIK CLEMENT ?? [...] Signature Glucose Lvl 98 65 - 199 [facility] mg/dL [facility] [...] or in patients with acute kidney failure. [email or web address] Specimen Anatomical Collection Method Collection Time Receive d Time (Source) Location / / Volume Laterality Blood specimen 08/26/2017 2:00 PM 018 2:15 (specimen) EST PM EST Resulting Agency Comment Spec In Lab Danette Maxwell DOCUMENT CONTROL COORDINATOR CHEMISTRY ORDERABLES Performing Organization Address City/[facility]/ZIP Code Phon e Number [address] (ABNORMAL) pro-Brain Natriuretic Peptide (08/26/2017 2:00 PM EST) P athologist Signature ProBNP 2,373 (H) <=125 [facility] pg/mL [facility]OR[facility]ORY Specimen Anatomical Collection Method Collection Time Receive d Time (Source) Location / / Volume Laterality Blood specimen 08/26/2017 2:00 PM 018 2:15 (specimen) EST PM EST Resulting Agency Comment Spec In Lab Danette A Gillett STACIE CHEMISTRY ORDERABLES Performing Organization Address City/[facility] [place] [address] documented in this encounter Visit Diagnoses Diagnosis Atheroembolism of foot, right Delayed surgical wound healing, initial encounter Acute on chronic systolic congestive hea rt failure Acute on chronic systolic heart failure Ischemic cardiomyopathy Other specified forms of chronic ischemi c heart disease documented in this encounter Care Teams Food And Beverage Associate Relationship Specialty Start Date End Date Lovely Vicente MD PCP - General 04/16/[address] [place] [address] documented as of this encounter
--- OUTSIDE RECORDS SUMMARY | 2022-04-06 10:38 | XMS_ITS | Encounter Summary ---
:1945 Author Organization [facility] [place] [address] Care Team Providers Name Role Phone Lovely Vicente MD Primary Care Provider Encounter Details Date Type Department Care Team Description 09/07/2017 Laboratory Appointment Lab 3L [facility] [place] [id number] Social History Tobacco Use Types Packs/Day Years [...] Cardiology Zulma Dolan MD [facility] er [address] [place], [place] [address] (Wo rk) 05/28/2022 Laboratory Appointment Lab 05/28/2022 Office Visit Cardiology Zulma Dolan MD [facility] [address] Liz Poole PA [facility] [place] [address] 06/10/2022 Office Visit Dermatology Laura Scherer MD [facility] ER DR [address] [place], [place] [address] (Wo rk) documented as of this encounter [...] Signature Thyroglobulin 1.4 <=54.9 [facility] ng/mL [facility] Comment: Thyroglobulin levels may be unreliable [...] Organization Address City/State/[place] [address] TSH (09/07/2017 2:41 PM EST) athologist Signature TSH 3.93 0.27 - 4.20 [facility] Specimen Anatomical Collection Method Collection Time Receive d Time (Source) Location / / Volume Laterality Blood specimen 09/07/2017 2:41 PM 018 2:46 (specimen) EST PM EST Resulting Agency Comment Spec In Lab Luz Prescott MD CHEMISTRY ORDERABLES Performing Organization Address City/State/[place] [address] documented in this encounter Visit Diagnoses Diagnosis Hx of papillary thyroid carcinoma Personal history of malignant neoplasm o f thyroid documented in this encounter Care Teams Router Tender Relationship Specialty Start Date End Date Lovely Vicente MD PCP - General 04/16/[address] [place] [address] documented as of this encounter
--- OUTSIDE RECORDS SUMMARY | 2022-04-06 10:38 | XMS_ITS | Encounter Summary ---
:1945 Author Organization [facility] [place] [address] Care Team Providers Name Role Phone Lovely Vicente MD Primary Care Provider Encounter Details Date Type Department Care Team Description 11/29/2017 Office Visit Cardiology at [facility] Annette Maxwell Chronic systolic congestive heart failure; [facility] A, BUSINESS OPERATIONS MANAGER ASCVD (arteriosclerotic cardiovascular d isease); [facility] Cardiomyopathy, ischemic; [place], [place] PAD (peripheral artery disease) [phone] CARDIOLOGY [phone] [place], [place] [address] Social History Tobacco Use Types [...] this encounter Progress Notes Annette Maxwell, BUSINESS OPERATIONS MANAGER - 11/29/2017 9:20 AM EDT ID and [...] 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 [...] using left greater saphenous vein [place] [facility] debridement of right foot with [...] x 80 10/25/2017: right popliteal-pedal bypass at [facility] ? Plan: 1. A review [...] Zulma Dolan MD [facility] [place], [place] [address] (Wo rk) 05/28/2022 Laboratory Appointment Lab 05/28/2022 Office Visit Cardiology Zulma Dolan MD [facility] [place] [address] Liz Poole PA [facility] [place] [address] 06/10/2022 Office Visit Dermatology Laura Scherer MD [facility] [address] [place], [place] [address] (Wo rk) documented as of this encounter Results Arterial Duplex Leg, Unil (11/29/2017 10:32 AM EDT) Component Value Ref Test Analysis Performed At [facility] Range Method Time Signature VB Text Department: Vascular Surgery Lab VASCUBASE Report Patient: [id number] (GREGORY HOANG) CPT: 22871 ICD10: I72.4;I73.9 Referring Physician: ANNETTE MAXWELL ?? [...] 217 (H) 65 - 199 [facility] mg/dL [facility] Comment: Diabetes: >=200 mg/dL plus symp toms BUN 26 (H) 10 - 20 mg/dL [facility] Creatinine 0.96 0.80 - 1.50 mg/dL [facility] Sodium 137 135 - 145 [...] or in patients with acute kidney failure. [email or web address] Specimen Anatomical Collection Method Collection Time Receive d Time (Source) Location / / Volume Laterality Blood specimen 11/29/2017 8:22 AM 05/07/2 018 8:29 (specimen) EDT AM EDT Resulting Agency Comment Spec In Lab Annette Maxwell BUSINESS OPERATIONS MANAGER CHEMISTRY ORDERABLES Performing Organization Address City/State/ZIP [place] [address] (ABNORMAL) pro-Brain Natriuretic Peptide (11/29/2017 8:22 AM EDT) P athologist Signature ProBNP 1,769 (H) <=125 [facility] pg/mL [facility] Specimen Anatomical Collection Method Collection Time Receive d Time (Source) Location / / Volume Laterality Blood specimen 11/29/2017 8:22 AM 018 8:29 (specimen) EDT AM EDT Resulting Agency Comment Spec In Lab Annette Maxwell BUSINESS OPERATIONS MANAGER CHEMISTRY ORDERABLES Performing Organization Address City/[facility]/ZIP [place] [address] documented in this encounter Visit Diagnoses Diagnosis Chronic systolic congestive heart failur e Chronic systolic heart failure ASCVD (arteriosclerotic cardiovascular d isease) Unspecified cardiovascular disease Cardiomyopathy, ischemic Other specified forms of chronic ischemi c heart disease PAD (peripheral artery disease) Peripheral vascular disease, unspecified documented in this encounter Care Teams Mold Repair Technician Relationship Specialty Start Date End Date Lovely Vicente MD PCP - General 04/16/[address] [place] [address] documented as of this encounter
--- OUTSIDE RECORDS SUMMARY | 2022-04-06 10:39 | XMS_ITS | Encounter Summary ---
:1945 [place] [address] Care Team Providers Name Role Phone Lovely Vicente MD Primary Care Provider Reason for Visit Auth/Cert Specialty Diagnoses / Procedures Referred By Contact Refer red To Contact Diagnoses Critical lower limb ischemia CELLULITIS RT FOOT Procedures EMERGENCY Referral ID Status Reason Start Date Expiration Date Visits Requ ested Visits Authorized [id number] 1 1 Encounter Details Date Type Department Care Team Description 08/06/2017 - Hospital Encounter 5 Yonathan Oneill lower limb ischemia; 08/16/2017 Su Flores MD Ischemic foot Hospital [facility] [address] [place] [id number] [phone] Social History Tobacco Use Types Packs/Day Years [...] addition to a 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 Patient [...] Dorsalis Pedis (Ankle) Artery ?132 ? 0.94 ??[place]-Biphasic ? Posterior Tibial (Ankle) Artery ??154 ? 1.10 ??[place]-Biphasic ? Fourth Toe ? 67 ?0.48 ?? [...] Discharge Conditions/Prognosis: Good Discharge to: [facility] Rehab Discharge Medications: Your Medications New Medications [...] For any problems or questions please call [phone] ZELDA Smith, fire operations forester Nurse Clinician For issues on weeknights after 5pm and weekends please call [phone] and ask for the Vascular Fellow director clinical operations. General Instructions None Future Appointments and Orders Future Appointments Provider Department Dept Phone 08/26/2017 4:00 PM Aurelia Rivera PA V[facility] Surgery at [place] [phone] 09/07/2017 3:00 PM LAB, THREE L Lab 3L [facility] [phone] 09/07/2017 4:00 PM Luz Prescott MD Endocrinology at [place] [phone] 09/09/2017 8:00 AM Barbra Soares APRN Pain Management at [place] [phone] Please bring a list of your current [...] For any problems or questions please call [phone] ZELDA Smith, fire operations forester Nurse Clinician For issues on weeknights after 5pm and weekends please call [phone] and ask for the Vascular Fellow director clinical operations. documented in this encounter Medications at Time [...] of Care Management Discharge Note Patient Destination: [facility] ([facility]) [address] [place] [address] Transportation: with (at bedside) Time of Discharge: by 12 noon Level of Care: swing Patient Aware: yes Family Notified: yes Md to call report to: Yissel Quintero CAMERA ASSEMBLER already called RN to call report to: [phone] Shirin Wolf Office of Care Management Pager [phone] Shirin Wolf RN - 08/16/2017 10:50 AM EST [facility] has offered pt swing bed. Pt and accept bed. will transport via car. CAMERA ASSEMBLER Yissel Quintero aware; d/c paperwork will be completed by 12 noon. [facility] requests pt arrival by 1400 today; CAMERA ASSEMBLER, RN, and family aware. CAMERA ASSEMBLER called [facility] and was told that they prefer pt to arrive with wound vac dressing applied but clamped. CAMERA ASSEMBLER applied new wound vac dressing. RN has [facility] number to call report. PASSR completed; CAMERA ASSEMBLER paged to request provider signature in highlighted space. Indigo from [facility] notified via email that home wound vac now cancelled; STORES has picked up from room and order cancelled. Packet started and provided to community ambassador. Medicare important message explained to patient, patient signed. Copy provided to patient and signature page to OCM for inclusion in pt EMR. Radha Georges - 08/16/2017 10:34 AM EST Office of Care Management/Financial Accounting Manager Patient Name: Gregory Hoang : 1945 Patient has been offered a swing bed at [facility]. The patient will be transported by private transportation. No MD to MD report necessary Please call Nursing Report to [phone], ask for chief warden. Info to accompany patient: Narcotic Prescriptions Copies of Medication Administration Records and IV sheets for past 10 days. Plan: Financial Accounting Manager will be available to the patient and Dental Office Receptionist-RN and/or Software Developer Intern for further assistance. Patient will be discharged to: [place] [phone] Radha Powers, Financial Accounting Manager Mira Black, VAMSI - 08/15/2017 10:05 PM EST [address] Flores to ask if he wanted to hold metoprolol dose. BP 95/58. OK to hold this dose Courtney Brito - 08/15/2017 3:26 PM EST Office of Care Management(OCM)/Financial Accounting Manager(RS)/ D/C Planning re : Patient is medically ready for d/c today. RS has been in contact with [facility] to see if they could offer a bed. [facility] is still reviewing the case and need their MD to review chart prior to accepting or declining. OCM team needs to check in with [facility] tomorrow to check on status. 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 Vac in place. [...] patient's referral to: [facility] PHONE: [phone] FAX: [phone] CM spoke with RS who said that [...] rehab. Await recommendations from PT. Covering pager #[phone]. Viry Starkey MD - 08/14/2017 10:08 AM [...] blue toe syndrome (possibly from a right AIRB[employer] PSA which has since thrombosed), now admitted [...] do rehab instead of going home with [facility]. Lab Associate Kaitlin Saha, RN Pager #[phone] Payam Rosales - 08/13/2017 2:37 PM EST Normalizer Encounter Note Patient Name: Gregory Hoang : [id number] MR#: [id number] Admit Date: 08/06/2017 1:41 PM Hospital Day 7 days Narrative: Visited to introduce and assess acceptance of Normalizer services. Pt was awake, alert, oriented and in chair and family was there. Assessment:Patient coping positively with stresses of illness/hospitalization at this time. Pt says that he is hoping to get better and his family was there. Pt says that he has family care and supportand taking one day at time. Intervention and Outcome: Provided emotional support and encouraging presence. 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 A letter describing our affiliations was reviewed with them and theywere educated about their right to choose where referrals are placed. Patient requests referral to [facility]. PHONE: [phone] FAX: [phone]. And Home NPWT (Negative Pressure Wound Therapy) aka wound vac device made available to pt. Serial # confirmed. Reviewed [facility] Proof of Delivery/Assignment of Benefits Statement(POD/AOB) Form w patient or authorized agent signing on behalf of patient. Copy of POD/AOB provided to pt and other copy faxed to [employer] @ fax# [phone] Expected date of discharge: 08/12/2017. 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 Address: [address] [place] [address] [place] [address] (home) Mobile: Telephone Information: Referring Provider: No [...] [facility] ENDOSCOPY ??? PRO ENDOSCOPY W/VIDEO-ASST VEIN HARVEST, CABG Right 07/07/2017 ENDOSCOPIC HARVEST VEIN(S) FOR CABG (WRVU 0.31) performed by Yuan Retana MD at [facility] MAIN OR ??? PRO THYROIDECTOMY 03/28/2013 THYROIDECTOMY, TOTAL OR COMPLETE performed by Manny Mcknight MD at 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 Heparin gtt continues to [...] : 1945 AGE 72 y.o. Address: [address] [place] [address] [place] [address] (home) Mobile: Telephone Information: Referring Provider: No [...] [facility] ENDOSCOPY ??? PRO ENDOSCOPY W/VIDEO-ASST VEIN HARVEST, CABG Right 07/07/2017 ENDOSCOPIC HARVEST VEIN(S) FOR CABG (WRVU 0.31) performed by Yuan Retana MD at [facility] MAIN OR ??? PRO THYROIDECTOMY 03/28/2013 THYROIDECTOMY, TOTAL OR COMPLETE performed by Manny Mcknight MD at [facility] MAIN OR Date/Procedure Meds given/comments No [...] 08/04/2017 10/04/12 Rigoberto Garcia III, MD Naty Crwoder RN - 08/09/2017 10:19 AM EST 0915- [...] blue toe syndrome (possibly from a right AIRBORNE MISSIONS [employer] PSA which has since thrombosed), now admitted [...] draw at 0045. Unsuccessful draw attempt, another creative resource manager will come [facility] to collect blood for PTT test. 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 Vascular resident director clinical operations and will forward result to the team prior to rounds. 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 Plan to try a small dose of [...] addition to a pseudoaneurysm of his R [employer] and bilateral anterior tibial artery occlusions. Patient [...] [facility] END[facility]COPY ??? PRO ENDOSCOPY W/VIDEO-ASST VEIN HARVEST, CABG Right 07/07/2017 ENDOSCOPIC HARVEST VEIN(S) FOR CABG (WRVU 0.31) performed by Yuan Retana MD at [facility] MAIN OR ??? PRO THYROIDECTOMY 03/28/2013 THYROIDECTOMY, TOTAL OR COMPLETE performed by Manny Mcknight MD at [facility] MAIN OR Functional Status/Social Hx: Quit [...] left blue toes with CTA showing R [employer]S pseudoaneurysm (now thrombosed) and occluded ATs bilaterally. [...] 2.5x80 5. Completion RLE angiogram 6. L [employer]NE MISSIONS [employer]S angiogram 7. 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 - L [employer]NE [employer] angriogram demonstrated: High femoral bifurcation over the proximal half of the femoral head. L [employer]NE M[employer] access in the distal L AIRBORNE MISSIONS SYSTEMS. - Closure device: Mynx Technical Procedure: The [...] for a 45cm 5F Destination. V18 and [place] and QuickCross catheters were used to select [...] 5F. A stationed picture of the L [employer]BORNE MISSIONS SYSTEMS was performed as the patient was noted to have a very high bifurcation. Access appeared in the distal R [employer]NE MISSIONS SYSTEMS. Closure and sheath removal was performed with [...] PM EST 1440 report called to 5 [place] nurse Tessa AGUSTIN documented in this encounter [...] and pt's spouse. Discharge to [facility]. Goal: Individualization & Mutuality Outcome: Outcome (s) [...] sit/sit to supine -- Bed Mobility Goal, Fannin Level independent -- Bed Mobility Goal, Date [...] days -- Transfer Training Goal, Activity Type nse-fs-eaglr/vmmxb-ro-uvh -- Transfer Train Goal, Fannin Level conditional independence -- Transfer Train Goal, Date Goal Reviewed -- 08/14/17 Transfer Training Goal, Outcome -- goal ongoing Plan of Care - Mria Truong RN - 08/16/2017 5:36 AM EST [...] call cabello within reach, Hourly rounding by RN/SOLDER DEPOSIT OPERATOR. Bed alarm / Chair alarm. Patient-specific [...] - 08/15/2017 6:28 PM EST [facility] Operative Note Patient Name: Gregory Hoang : [id number] MR#: [id number] Case Date: 08/09/2017 Surgeon: Surgeon(s) and Role: [...] 2.5x80 5. Completion RLE angiogram 6. L AIRBORNE MISSIONS SYSTEMS angiogram 7. Mynx closure Precautions/Restrictions: fall, sternal [...] other (see comments) (or swing bed) Pager: [phone] BASSAM ELIAS, PT 08/14/2017 Inpatient Physical Therapy [...] to Achieve by discharge Gait Training Goal, Fannin Level conditional independence;set up required Gait Training [...] over the weekend except for [facility]. CM spoke with [facility] CM Drea Sandhu, VAMSI who said that they do not anticipate any beds over the weekend. Reviewed with patient/ that they need to be aware that patient will need to take the first bed offered at the facilities that they make referrals to. Their choices are: 1- [facility] PHONE: [phone] FAX: [phone] 2- [facility] ([facility]) [address] [place] [address] 3- [facility]) [address] [place] [address] I have discussed Medicare/Private Insurance [...] RS/CM on Wednesday to follow-up. Covering pager #[phone] for today. Plan of Care - Henrique [...] with additional findings of pseudoaneurysm on R AIRBORNE MISSIONS SYSTEMS and bilateral anterior tibial artery occlusions. Was [...] an outpatient once discharged. Have patient call [phone] to set up an appointment. Follow-up: Dermatology will sign-off for now. Please do not hesitate to contact us if you have any questions orconcerns. Impression and Recommendations discussed with primary team on 08/13/2017. Karo Henderson MD Resident in Dermatology Section of Dermatology, Department of Surgery [facility] Pager [phone] Patient seen and evaluated with staff Atomic Physics Professor: Halima Cordero MD Section of Dermatology [facility] Level of Resident Supervision: Direct Supervision [...] 2.5x80 5. Completion RLE angiogram 6. L AIRBORNE MISSIONS SYSTEMS angiogram 7. Mynx closure Active Non-Hospital Problems [...] home with home health ([facility] PT&OT) Pager: [phone] YASIR TELLO OT 08/12/2017 Occupational Therapy Rehabilitation [...] 2.5x80 5. Completion RLE angiogram 6. L AIRB[employer]NE MISSIONS [employer]S angiogram 7. Mynx closure Past Medical History: [...] with 24/7 assistance and maximal services) Pager: [phone] NICHOLAS MORA, PT 08/12/2017 Physical Therapy Rehabilitation [...] sit/sit to supine -- Bed Mobility Goal, Fannin Level independent -- Bed Mobility Goal, Outcome Achieved -- goal ongoing Goal: Gait Training Goal Stand Alone Therapy Goal Outcome: Ongoing (Interventions Implemented as Appropriate) 08/11/17 1310 08/12/17 1510 Gait Training Goal Gait Training Goal, Date Established 08/11/17 -- Gait Training Goal, Time to Achieve 5 - 7 days -- Gait Training Goal, Fannin Level conditional independence -- Gait Training Goal, [...] days -- Transfer Training Goal, Activity Type buv-gg-gmxdi/xvptn-wn-whv -- Transfer Train Goal, Fannin Level conditional independence -- Transfer Training Goal, [...] - 08/11/2017 2:52 PM EST [facility] Operative Note Patient Name: Gregory Hoang : [id number] MR#: [id number] Case Date: 08/11/2017 Surgeon: Surgeon(s) and Role: [...] blue toe syndrome (possibly from a right AIRBORNE MISSIONS [employer] 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 Completion RLE angiogram 6. L AIR[employer]NE M[employer]S angiogram 7. Mynx closure He is very [...] Anticipated Discharge Disposition: inpatient rehabilitation facility Pager: [phone] LAWRENCE GONZALEZ, PT 08/11/2017 Physical Therapy Rehabilitation [...] to sit/sit to supine Bed Mobility Goal, Fannin Level independent Goal: Gait Training Goal Stand Alone Therapy Goal Outcome: Ongoing (Interventions Implemented as Appropriate) 08/11/17 1310 Gait Training Goal Gait Training Goal, Date Established 08/11/17 Gait Training Goal, Time to Achieve 5 - 7 days Gait Training Goal, Fannin Level conditional independence Gait Training Goal, Assist [...] 7 days Transfer Training Goal, Activity Type vef-gb-hibay/ufptu-bm-kuj Transfer Train Goal, Fannin Level conditional independence Plan of [facility] Annetta Sandoval RN - 08/11/2017 7:21 AM [...] call cabello within reach, Hourly rounding by RN/SOLDER DEPOSIT OPERATOR. Bed alarm / Chair alarm. ? [...] 30 Days: [facility] 07/20/2017 Anticipated Length Of Stay (If known): Expected Length of Hospitalization: 5-7 days2-3 days Current Decision-Making Capacity: Alert and oriented x 4 Advance Care Planning: on file Kisha Hoang [facility] [phone] Current Coping/Education/Information Needs: pt and spouse state [...] Health/Prescription Coverage: Primary Insurance: MEDICARE Secondary Insurance: [employer] [facility] Prescription Coverage: See above Preferred Pharmacy: [facility] Other: N/A Primary Care Provider: Lovely Vicente MD [phone] Patient/Caregiver Goals of Treatment: Patient plans to return home when medically ready Potential Needs for Transition of Care: Rehab/SNF: N/A Home Health: [facility]. DME: pt has a cane and [...] of care planning. Kaitlin Saha RN Pager: [phone] Plan of Care - Melba Jaramillo RN [...] Overview Goal: Plan of Care Review 08/08/17 0144 Coping/Psychosocial Plan Of Care Reviewed With patient [...] call cabello within reach, Hourly rounding by RN/SOLDER DEPOSIT OPERATOR. Bed alarm / Chair alarm. Patient-specific [...] at bedside and MD TEAM Carrying pager [phone] contacted (via Radio page) and notified of area of phlebitic concern. Offered patient warm compress. Pt denies discomfort, or knowing the vein was palpable. Advised to patient to try to avoid having labs drawn and iv's placed within the marked area. See Photo below. documented in this encounter Plan of Treatment Upcoming Encounters Date Type Specialty Care Team Description 05/28/2022 Appointment Cardiology uZlma Dolan MD [facility] [place], [place] [address] (Wo rk) 05/28/2022 Laboratory Appointment Lab 05/28/2022 Office Visit Cardiology Zulma Dolan [place] [address] Liz Poole PA [facility] [place] [address] 06/10/2022 Office Visit Dermatology Laura Scherer MD [facility] [address] [facility] [place], [place] [address] (Wo rk) documented as of [...] Signature POC Glucose 160 65 - 199 [facility] mg/dL [facility] Comment: Supplemental ranges: <140 mg/dL before meals <180 mg/dL all other times of the day Specimen Anatomical Collection Method Collection Time Receive d Time (Source) Location / / Volume Laterality Blood specimen 08/16/2017 7:28 AM 018 7:28 (specimen) EST AM EST Yonathan Smith MD POINT OF CARE TEST ORDERABLE S Performing Organization Address City/State/[place] [address] (ABNORMAL) Differential, Automated (08/16/2017 5:08 AM EST) [facility] Method Time Signature Neutrophils % 73.9 % [facility] Neutr Abs (ANC) 5.37 1.70 - [facility] 6.10 [facility] x10(3)/[facility] LABORATORY Lymphocytes % 10.1 % [facility] Lymphocytes Abs 0.7 (L) 0.9 - 3.2 [facility] x10(3)/[facility] LABORATORY Monocytes % 10.1 % [facility] Monocyte Abs 0.7 0.3 - 0.9 [facility] x10(3)/[facility] LABORATORY Eosinophils % 5.1 % [facility] Eosinophils Abs 0.4 0.0 - 0.4 [facility] x10(3)/[facility] LABORATORY Basophils % 0.4 % [facility] Basophils Abs 0.0 0.0 - 0.1 [facility] x10(3)/[facility] LABORATORY Immature Gran % 0.40 % [...] Melisa Gran Abs 0.03 0.00 - 0.04 x10(3)/[facility] Y [facility] LABORATORY Specimen Anatomical Collection Method Collection Time Receive d Time (Source) Location / / Volume Laterality Blood specimen 08/16/2017 5:08 AM 018 5:20 (specimen) EST AM EST Resulting Agency Comment Spec In Lab Yonathan Smith MD HEMATOLOGY ORDERABLES Performing Organization Address City/State/[place] [address] (ABNORMAL) Hemogram (08/16/2017 5:08 AM EST) Analysis Performed At Patho logist Time Signature WBC 7.3 4.0 - 9.5 [facility] x10(3)/[facility] LABORATORY RBC 3.36 (L) 4.58 - [place] [facility] 5.54 [facility] x10(6)/[facility] LABORATORY Hemoglobin 9.7 (L) 13.7 - [facility] 16[facility] gm/dL [facility] Hematocrit 30.3 (L) 40.5 - [facility] 48.5 % [facility] MCV 90.2 82.9 - [facility] 93.1 [facility] LABORATORY MCH 28.9 27.5 - [place] [facility] 32.1 pg [facility] MCHC 32.0 32.0 - [facility] 35.7 gm/dL [facility] Platelets 282 145 - 357 [facility] x10(3)/[facility] LABORATORY RDWSD 53.9 (H) 36.0 - [facility] 45.0 [facility] LABORATORY RDWCV 16.5 (H) 11.4 - [facility] SU 13.8 % [facility] MPV 9.0 7.6 - 12.9 [facility] LABORATORY nRBC % Auto 0.0 % [facility] nRBC Abs Auto 0.000 0.000 - [facility] SU 0.000 [facility] x10(3)/[facility] LABORATORY Specimen Anatomical Collection Method Collection Time Receive d Time (Source) Location / / Volume Laterality Blood specimen 08/16/2017 5:08 AM 018 5:20 (specimen) EST AM EST Resulting Agency Comment Spec In Lab Yonathan Smith MD HEMATOLOGY ORDERABLES Performing Organization Address City/State/[place] [address] (ABNORMAL) Basic Metabolic Panel (non-fasting) (08/16/2017 5:08 AM EST) P athologist Signature Glucose Lvl 141 65 - 199 [facility] mg/dL [facility] Comment: [...] estions. Chloride 99 98 - 107 mmol/L [facility] CO2 28 22 - 31 mmol/L [facility] Anion Gap 13 5 - 15 mmol/L [facility] Calcium 8.7 8.5 - 10.5 mg/dL [facility] Estimated GFR 57 (L) >=60 [facility] Comment: The reported eGFR should be multiplied b y 1.2 for patients. The MDRD is not an appropriate measure o f renal function for patients with body mass extremes or in patients with acute kidney failure. http://Inofile/DHnkdep http://Inofile/DHMCnkf Specimen Anatomical Collection Method Collection Time Receive d Time (Source) Location / / Volume Laterality Blood specimen 08/16/2017 5:08 AM 018 5:20 (specimen) EST AM EST Resulting Agency Comment Spec In Lab Yonathan Smith MD CHEMISTRY ORDERABLES Performing Organization Address City/State/[place] [address] (ABNORMAL) Prothrombin Time (08/16/2017 [...] Address City/State/ZIP Code Phon e Number [address] POCT Glucose (08/16/2017 4:09 AM EST) athologist Signature POC Glucose 147 65 - 199 [facility] mg/dL [facility] Comment: Supplemental ranges: <140 mg/dL before meals <180 mg/dL all other times of the day Specimen Anatomical Collection Method Collection Time Receive d Time (Source) Location / / Volume Laterality Blood specimen 08/16/2017 4:09 AM 018 4:09 (specimen) EST AM EST Yonathan Smith MD POINT OF CARE TEST ORDERABLE S Performing Organization Address City/State/[place] [address] POCT Glucose (08/15/2017 11:56 PM EST) athologist Signature POC Glucose 176 65 - 199 [facility] SU mg/dL [facility]OR[facility] Comment: Supplemental ranges: <140 mg/dL before meals <180 mg/dL all other times of the day Specimen Anatomical Collection Method Collection Time Receive d Time (Source) Location / / Volume Laterality Blood specimen 08/15/2017 11:56 8 (specimen) PM EST 11:56 PM EST Yonathan Smith MD POINT OF CARE TEST ORDERABLE S Performing Organization Address City/State/[place] [address] POCT Glucose (08/15/2017 8:05 PM EST) athologist Signature POC Glucose 136 65 - 199 [place] mg/dL [facility] Comment: Supplemental ranges: <140 mg/dL before meals <180 mg/dL all other times of the day Specimen Anatomical Collection Method Collection Time Receive d Time (Source) Location / / Volume Laterality Blood specimen 08/15/2017 8:05 PM 018 8:05 (specimen) EST PM EST Yonathan Smith MD POINT OF CARE TEST ORDERABLE S Performing Organization Address City/State/[place] [address] (ABNORMAL) POCT Glucose (08/15/2017 4:50 PM EST) athologist Signature POC Glucose 232 (H) 65 - 199 [facility] SU mg/dL [facility] Comment: Supplemental ranges: <140 mg/dL before meals <180 mg/dL all other times of the day Specimen Anatomical Collection Method Collection Time Receive d Time (Source) Location / / Volume Laterality Blood specimen 08/15/2017 4:50 PM 018 4:50 (specimen) EST PM EST Yonathan Smith MD POINT OF CARE TEST ORDERABLE S Performing Organization Address City/State/[place] [address] POCT Glucose (08/15/2017 12:04 PM EST) athologist Signature POC Glucose 135 65 - 199 [facility] SU mg/dL [facility] Comment: Supplemental ranges: <140 mg/dL before meals <180 mg/dL all other times of the day Specimen Anatomical Collection Method Collection Time Receive d Time (Source) Location / / Volume Laterality Blood specimen 08/15/2017 12:04 8 (specimen) PM EST 12:04 PM EST Yonathan Smith MD POINT OF CARE TEST ORDERABLE S Performing Organization Address City/State/[place] [address] POCT Glucose (08/15/2017 7:36 AM EST) P athologist Signature POC Glucose 124 65 - 199 [facility] mg/dL [facility] Comment: Supplemental ranges: <140 mg/dL before meals <180 mg/dL all other times of the day Specimen Anatomical Collection Method Collection Time Receive d Time (Source) Location / / Volume Laterality Blood specimen 08/15/2017 7:36 AM 018 7:36 (specimen) EST AM EST Yonathan Smith MD POINT OF CARE TEST ORDERABLE S Performing Organization Address City/State/[place] [address] (ABNORMAL) Differential, Automated (08/15/2017 6:22 AM EST) Patholo gist Method Time Signature Neutrophils % 76.1 % [facility] LABORATORY Neutr Abs (ANC) 6.62 (H) 1.70 - [facility] 6.10 [facility] x10(3)/[facility] L LABORATORY Lymphocytes % 9.3 % [facility] LABORATORY Lymphocytes Abs 0.8 (L) 0.9 - 3.2 [facility] x10(3)/[facility] LABORATORY Monocytes % 9.4 % [facility] LABOR[facility]ORY Monocyte Abs 0.8 0.3 - 0.9 [facility] x10(3)/[facility] LABORATORY Eosinophils % 4.0 % [facility] LABORATORY Eosinophils Abs 0.4 0.0 - 0.4 [facility] x10(3)/[facility] LABORATORY Basophils % 0.6 % [facility] LABORATORY Basophils Abs 0.0 0.0 - 0.1 [facility] x10(3)/[facility] LABORATORY Immature Gran % 0.60 % [place] [...] Organization Address City/State/[place] [address] (ABNORMAL) Hemogram (08/15/2017 6:22 AM EST) Analysis Performed At Patho logist Time Signature WBC 8.7 4.0 - 9.5 [facility] x10(3)/[facility] LABORATORY RBC 3.21 (L) 4.58 - [facility] 5.54 [facility] x10(6)/[facility] LABORATORY Hemoglobin 9.1 (L) 13.7 - [facility] 16.5 gm/dL [facility] Hematocrit 29.0 (L) 40.5 - [facility] 48.5 % [facility] MCV 90.3 82.9 - [facility]1 [facility] LABORATORY MCH 28.3 27.5 - [facility] 32.1 pg [facility] MCHC 31.4 (L) 32.0 - [facility] 35.7 gm/dL [facility] LAB[facility] Platelets 254 145 - 357 [facility] x10(3)/[facility] LABORATORY RDWSD 53.9 (H) 36.0 - [facility] SU 45.0 [facility] LABORATORY RDWCV 16.3 (H) 11.4 - [facility] SU 13.8 % [facility] LABORATORY MPV 8.8 7.6 - 12.9 [facility] LABORATORY nRBC % Auto 0.0 % [facility] LABORATORY nRBC Abs Auto 0.000 0.000 - [facility] SU 0.000 [facility] x10(3)/[facility] LABORATORY Specimen Anatomical Collection Method Collection Time Receive d Time (Source) Location / / Volume Laterality Blood specimen 08/15/2017 6:22 AM 018 6:33 (specimen) EST AM EST Resulting Agency Comment Spec In Lab Yonathan Smith MD HEMATOLOGY ORDERABLES Performing Organization Address City/[facility]/[place] [address] (ABNORMAL) Basic Metabolic Panel (non-fasting) (08/15/2017 6:22 AM EST) athologist Signature Glucose Lvl 118 65 - 199 [facility] mg/dL [facility] Comment: [...] 107 mmol/L [facility] LABORATORY CO2 29 22 - 31 mmol/L [facility] LABORATORY Anion Gap 11 5 - 15 mmol/L [facility] LABORATORY Calcium 8.8 8.5 - 10.5 mg/dL [facility] LABORATORY Estimated GFR >60 >=60 [facility] Comment: The reported eGFR should be multiplied b y 1.2 for patients. The MDRD is not an appropriate measure o f renal function for patients with body mass extremes or in patients with acute kidney failure. http://[employer] Assurance/DHnkdep http://[employer].Information Assurance/DHMCnkf Specimen Anatomical Collection Method Collection Time Receive d Time (Source) Location / / Volume Laterality Blood specimen 08/15/2017 6:22 AM 018 6:33 (specimen) EST AM EST Resulting Agency Comment Spec In Lab Yonathan Smith MD CHEMISTRY ORDERABLES Performing Organization Address City/[facility]/[place] [address] (ABNORMAL) Prothrombin Time (08/15/2017 6:22 AM EST) athologist Signature PT 21.9 (H) 11.8 - 14.0 [facility] LABORATORY INR 1.9 (H) 0.9 - 1.1 [facility] [...] Organization Address City/State/[place] [address] POCT Glucose (08/15/2017 4:33 AM EST) athologist Signature POC Glucose 164 65 - 199 [facility] mg/dL [facility] Comment: Supplemental ranges: <140 mg/dL before meals <180 mg/dL all other times of the day Specimen Anatomical Collection Method Collection Time Receive d Time (Source) Location / / Volume Laterality Blood specimen 08/15/2017 4:33 AM 018 4:33 (specimen) EST AM EST Yonathan Smith MD POINT OF CARE TEST ORDERABLE S Performing Organization Address City/State/[place] [address] POCT Glucose (08/15/2017 12:12 AM EST) athologist Signature POC Glucose 89 65 - 199 [facility] mg/dL [facility] Comment: Supplemental ranges: <140 mg/dL before meals <180 mg/dL all other times of the day Specimen Anatomical Collection Method Collection Time Receive d Time (Source) Location / / Volume Laterality Blood specimen 08/15/2017 12:12 8 (specimen) AM EST 12:12 AM EST Yonathan Smith MD POINT OF CARE TEST ORDERABLE S Performing Organization Address City/State/[place] [address] (ABNORMAL) POCT Glucose (08/14/2017 8:07 PM EST) athologist Signature POC Glucose 204 (H) 65 - 199 [place] [facility] mg/dL [facility] Comment: Supplemental ranges: <140 mg/dL before meals <180 mg/dL all other times of the day Specimen Anatomical Collection Method Collection Time Receive d Time (Source) Location / / Volume Laterality Blood specimen 08/14/2017 8:07 PM 018 8:07 (specimen) EST PM EST Yonathan Smith MD POINT OF CARE TEST ORDERABLE S Performing Organization Address City/State/[place] [address] POCT Glucose (08/14/2017 5:11 PM EST) athologist Signature POC Glucose 174 65 - 199 [place] [facility] mg/dL [facility] Comment: Supplemental ranges: <140 mg/dL before meals <180 mg/dL all other times of the day Specimen Anatomical Collection Method Collection Time Receive d Time (Source) Location / / Volume Laterality Blood specimen 08/14/2017 5:11 PM 018 5:11 (specimen) EST PM EST Yonathan Smith MD POINT OF CARE TEST ORDERABLE S Performing Organization Address City/State/[place] [address] POCT Glucose (08/14/2017 12:10 PM EST) athologist Signature POC Glucose 141 65 - 199 [place] mg/dL [facility] Comment: Supplemental ranges: <140 mg/dL before meals <180 mg/dL all other times of the day Specimen Anatomical Collection Method Collection Time Receive d Time (Source) Location / / Volume Laterality Blood specimen 08/14/2017 12:10 8 (specimen) PM EST 12:10 PM EST Yonathan Smith MD POINT OF CARE TEST ORDERABLE S Performing Organization Address City/State/ZIP Code Phon e Number [address] POCT Glucose (08/14/2017 8:07 AM EST) P athologist Signature POC Glucose 158 65 - 199 [facility] mg/dL [facility] Comment: Supplemental ranges: <140 mg/dL before meals <180 mg/dL all other times of the day Specimen Anatomical Collection Method Collection Time Receive d Time (Source) Location / / Volume Laterality Blood specimen 08/14/2017 8:07 AM 018 8:07 (specimen) EST AM EST Yonathan Smith MD POINT OF CARE TEST ORDERABLE S Performing Organization Address City/State/[place] [address] (ABNORMAL) Differential, Automated (08/14/2017 4:52 AM EST) Patholo gist Method Time Signature Neutrophils % 78.6 % [facility] LABORATORY Neutr Abs (ANC) 7.70 (H) 1.70 - [facility] 6.10 [facility] x10(3)/[facility] L LABORATORY Lymphocytes % 7.8 % [facility] LABORATORY Lymphocytes Abs 0.8 (L) 0.9 - 3.2 [facility] x10(3)/[facility] LABORATORY Monocytes % 8.8 % [facility] LABORATORY Monocyte Abs 0.9 0.3 - 0.9 [facility] x10(3)/[facility] LABORATORY Eosinophils % 4.0 % [facility] LABORATORY Eosinophils Abs 0.4 0.0 - 0.4 [facility] x10(3)/[facility] LABORATORY Basophils % 0.5 % [facility] LABORATORY Basophils Abs 0.0 0.0 - 0.1 [facility] x10(3)/[facility] LABORATORY Immature Gran % 0.30 % [place] [...] 0.04 x10(3)/[facility] MAR Y [facility] LABORATORY Specimen Anatomical Collection Method Collection Time Receive d Time (Source) Location / / Volume Laterality Blood specimen 08/14/2017 4:52 AM 018 5:08 (specimen) EST AM EST Resulting Agency Comment Spec In Lab Yonathan Smith MD HEMATOLOGY ORDERABLES Performing Organization Address City/State/[place] [address] (ABNORMAL) Hemogram (08/14/2017 4:52 AM EST) Analysis Performed At Patho logist Time Signature WBC 9.8 (H) 4.0 - 9.5 [facility] x10(3)/[facility] LABORATORY RBC 3.32 (L) 4.58 - [facility] 5.54 [facility] x10(6)/[facility] LABORATORY Hemoglobin 9.5 (L) 13.7 - [facility]m/dL [facility] LABORATORY Hematocrit 30.3 (L) 40.5 - [facility] SU 48.5 % [facility] LABORATORY MCV 91.3 82.9 - [facility] SU 93.1 [facility] LABORATORY MCH 28.6 27.5 - [place] SU 32.1 pg [facility] LABORATORY MCHC 31.4 (L) 32.0 - [facility] SU 35.7 gm/dL [facility] LABORATORY Platelets 263 145 - 357 [facility] x[facility](3[facility] LABORATORY RDWSD 54.8 (H) 36.0 - [facility] SU 45.0 [facility] RDWCV 16.5 (H) 11.4 - [facility] SU 13.8 % [facility] LABORATORY MPV 9.1 7.6 - 12.9 [facility] LABORATORY nRBC % Auto 0.0 % [facility] LABORATORY nRBC Abs Auto 0.000 0.000 - [facility] 0.000 [facility] x10(3)/[facility] LABORATORY Specimen Anatomical Collection Method Collection Time Receive d Time (Source) Location / / Volume Laterality Blood specimen 08/14/2017 4:52 AM 018 5:08 (specimen) EST AM EST Resulting Agency Comment Spec In Lab Yonathan Smith MD HEMATOLOGY ORDERABLES Performing Organization Address City/[facility]/[place] [address] (ABNORMAL) Prothrombin Time (08/14/2017 [...] Organization Address City/State/[place] [address] (ABNORMAL) Basic Metabolic Panel (non-fasting) (08/14/2017 4:52 AM EST) athologist Signature Glucose Lvl 135 65 - 199 [facility] mg/dL [facility] Comment: [...] or in patients with acute kidney failure. http://[employer].Information Assurance/DHnkdep http://Inofile/DHMCnkf Specimen Anatomical Collection Method Collection Time Receive d Time (Source) Location / / Volume Laterality Blood specimen 08/14/2017 4:52 AM 018 5:08 (specimen) EST AM EST Resulting Agency Comment Spec In Lab Yonathan Smith MD CHEMISTRY ORDERABLES Performing Organization Address City/State/[place] [address] POCT Glucose (08/14/2017 3:56 AM EST) P athologist Signature POC Glucose 135 65 - 199 [facility] mg/dL [facility] Comment: Supplemental ranges: <140 mg/dL before meals <180 mg/dL all other times of the day Specimen Anatomical Collection Method Collection Time Receive d Time (Source) Location / / Volume Laterality Blood specimen 08/14/2017 3:56 AM 018 3:56 (specimen) EST AM EST Yonathan Smith MD POINT OF CARE TEST ORDERABLE S Performing Organization Address City/State/ZIP [place] [address] POCT Glucose (08/13/2017 11:13 PM EST) athologist Signature POC Glucose 118 65 - 199 [place] mg/dL [facility] LABOR[facility] Comment: Supplemental ranges: <140 mg/dL before meals <180 mg/dL all other times of the day Specimen Anatomical Collection Method Collection Time Receive d Time (Source) Location / / Volume Laterality Blood specimen 08/13/2017 11:13 8 (specimen) PM EST 11:13 PM EST Yonathan Smith MD POINT OF CARE TEST ORDERABLE S Performing Organization Address City/[facility]/ZIP Code [place] [address] (ABNORMAL) POCT Glucose (08/13/2017 8:08 PM EST) athologist Signature POC Glucose 204 (H) 65 - 199 [place] [facility] mg/dL [facility] Comment: Supplemental ranges: <140 mg/dL before meals <180 mg/dL all other times of the day Specimen Anatomical Collection Method Collection Time Receive d Time (Source) Location / / Volume Laterality Blood specimen 08/13/2017 8:08 PM 018 8:08 (specimen) EST PM EST Yonathan Smith MD POINT OF CARE TEST ORDERABLE S Performing Organization Address City/[facility]/ZIP Code [place] [address] POCT Glucose (08/13/2017 4:02 PM EST) athologist Signature POC Glucose 145 65 - 199 [place] mg/dL [facility] Comment: Supplemental ranges: <140 mg/dL before meals <180 mg/dL all other times of the day Specimen Anatomical Collection Method Collection Time Receive d Time (Source) Location / / Volume Laterality Blood specimen 08/13/2017 4:02 PM 018 4:02 (specimen) EST PM EST Yonathan Smith MD POINT OF CARE TEST ORDERABLE S Performing Organization Address City/State/[place] [address] POCT Glucose (08/13/2017 11:31 AM EST) P athologist Signature POC Glucose 179 65 - 199 [facility]/dL [facility] Comment: Supplemental ranges: <140 mg/dL before meals <180 mg/dL all other times of the day Specimen Anatomical Collection Method Collection Time Receive d Time (Source) Location / / Volume Laterality Blood specimen 08/13/2017 11:31 8 (specimen) AM EST 11:31 AM EST Yonathan Smith MD POINT OF CARE TEST ORDERABLE S Performing Organization Address City/[facility]/[place] [address] (ABNORMAL) POCT Glucose (08/13/2017 10:16 AM EST) athologist Signature POC Glucose 211 (H) 65 - 199 [facility] mg/dL [facility] Comment: Supplemental ranges: <140 mg/dL before meals <180 mg/dL all other times of the day Specimen Anatomical Collection Method Collection Time Receive d Time (Source) Location / / Volume Laterality Blood specimen 08/13/2017 10:16 8 (specimen) AM EST 10:16 AM EST Yonathan Smith MD POINT OF CARE TEST ORDERABLE S Performing Organization Address City/[facility]/ZIP Code Phon e Number [address] JULIAN, legs, multiple levels (08/13/2017 7:42 AM EST) Component Value Ref Test Analysis Performed At Patholo gist Range Method Time Signature VB Text Department: Vascular Surgery Lab VASCUBASE Report Patient: [id number] (GREGORY HOANG) CPT: 67661 ICD10: I99.8 Referring Physician: YONATHAN SMITH ?? Indications: s/p R 1,2,3 toe amps with red left foot, need n ew baseline Diabetes mellitus: yes ICD10 Diagnosis Code: I99.8 Findings: Right ?Pressure (mm Hg) ?? JULIAN ??Waveform ?TBI ?? Brachial Artery ?138 ? Dorsalis Pedis (Ankle) Arter y ?132 ? 0.94 ??[place]- Biphasic ? Posterior Tibial (Ankle) Art anila ??154 ? 1.10 ??[place]-Biphasic ? Fourth Toe ? 67 ? 0.48 [...] 156 65 - 199 [place] mg/dL [facility] LABORATORY Comment: Supplemental ranges: <140 mg/dL before meals <180 mg/dL all other times of the day Specimen Anatomical Collection Method Collection Time Receive d Time (Source) Location / / Volume Laterality Blood specimen 08/13/2017 7:33 AM 018 7:33 (specimen) EST AM EST Yonathan Smith MD POINT OF CARE TEST ORDERABLE S Performing Organization Address City/State/[place] [address] (ABNORMAL) Differential, Automated (08/13/2017 5:33 AM EST) [facility] Method Time Signature Neutrophils % 77.8 % [facility] LABORATORY Neutr Abs (ANC) 7.83 (H) 1.70 - [facility] 6.10 [facility] x10(3)/[facility] L LABORATORY Lymphocytes % 8.4 % [facility] LABORATORY Lymphocytes Abs 0.8 (L) 0.9 - 3.2 [facility] x10(3)/[facility] LABORATORY Monocytes % 8.3 % [facility] LABORATORY Monocyte Abs 0.8 0.3 - 0.9 [facility] x10(3)/[facility] LABORATORY Eosinophils % 4.6 % [facility] LABORATORY Eosinophils Abs 0.5 (H) 0.0 - 0.4 [facility] x10(3)/[facility] LABORATORY Basophils % 0.5 % [facility] LABORATORY Basophils Abs 0.0 0.0 - 0.1 [facility] x10(3)/[facility] LABORATORY Immature Gran % 0.40 % [place] [...] 0.00 - 0.04 x10(3)/mcL MAR Y [facility] LABORATORY Specimen Anatomical Collection Method Collection Time Receive d Time (Source) Location / / Volume Laterality Blood specimen 08/13/2017 5:33 AM 018 6:04 (specimen) EST AM EST Resulting Agency Comment Spec In Lab Yonathan Smith MD HEMATOLOGY ORDERABLES Performing Organization Address City/State/ZIP Code Phon e Number [address] (ABNORMAL) Hemogram (08/13/2017 5:33 AM EST) Analysis Performed At Patho logist Time Signature WBC 10.1 (H) 4.0 - 9.5 [facility] x10(3)/[facility] LABORATORY RBC 3.21 (L) 4.58 - [facility] 5.54 [facility] x10(6)/[facility] LABORATORY Hemoglobin 9.2 (L) 13.7 - [facility] 16.5 gm/dL [facility] LABORATORY Hematocrit 29.6 (L) 40.5 - [facility] 48.5 % [facility] LABORATORY MCV 92.2 82.9 - [facility] 93.1 [facility] LABORATORY MCH 28.7 27.5 - [facility] 32.1 pg [facility] LABORATORY MCHC 31.1 (L) 32.0 - [facility] 35.7 gm/dL [facility] LABORATORY Platelets 263 145 - 357 [facility] x10(3)/[facility] LABORATORY RDWSD 54.8 (H) 36.0 - [facility] 45.0 [facility] LABORATORY RDWCV 16.4 (H) 11.4 - [facility] 13.8 % [facility] LABORATORY MPV 9.2 7.6 - 12.9 [facility] LABORATORY nRBC % Auto 0.0 % [facility] LABORATORY nRBC Abs Auto 0.000 0.000 - [facility] 0.000 [facility] x10(3)/[facility] LABORATORY Specimen Anatomical Collection Method Collection Time Receive d Time (Source) Location / / Volume Laterality Blood specimen 08/13/2017 5:33 AM 018 6:04 (specimen) EST AM EST Resulting Agency Comment Spec In Lab Yonathan Smith MD HEMATOLOGY ORDERABLES Performing Organization Address City/State/[place] [address] (ABNORMAL) Prothrombin Time (08/13/2017 5:33 AM EST) P athologist Signature PT 17.3 (H) 11.8 - 14.0 [facility] LABORATORY INR 1.4 (H) 0.9 - 1.1 [facility] [...] Organization Address City/State/ZIP Code Phon e Number [place] [id number] (ABNORMAL) Basic Metabolic Panel (non-fasting) (08/13/2017 5:33 AM EST) athologist Signature Glucose Lvl 126 65 - 199 [facility] mg/dL [facility] LABORATORY Comment: [...] 107 mmol/L [facility] LABORATORY CO2 29 22 - 31 mmol/L [facility] LABORATORY Anion Gap 12 5 - 15 mmol/L [facility] LABORATORY Calcium 7.9 (L) 8.5 - 10.5 mg/dL [facility] LABORATORY Estimated GFR >60 >=60 [facility] LABORATORY Comment: The reported eGFR should be multiplied b y 1.2 for patients. The MDRD is not an appropriate measure o f renal function for patients with body mass extremes or in patients with acute kidney failure. [email or web address] [email or web address] Specimen Anatomical Collection Method Collection Time Receive d Time (Source) Location / / Volume Laterality Blood specimen 08/13/2017 5:33 AM 018 6:04 (specimen) EST AM EST Resulting Agency Comment Spec In Lab Yonathan Smith MD CHEMISTRY ORDERABLES Performing Organization Address City/[facility]/ZIP [facility] [place] Number [address] POCT Glucose (08/13/2017 4:29 AM EST) athologist Signature POC Glucose 111 65 - 199 [facility] LABORATORY Comment: Supplemental ranges: <140 mg/dL before meals <180 mg/dL all other times of the day Specimen Anatomical Collection Method Collection Time Receive d Time (Source) Location / / Volume Laterality Blood specimen 08/13/2017 4:29 AM 018 4:29 (specimen) EST AM EST Yonathan Smith MD POINT OF CARE TEST ORDERABLE S Performing Organization Address City/[facility]/ZIP Code Phon e Number [address] POCT Glucose (08/12/2017 11:28 PM EST) athologist Signature POC Glucose 164 65 - 199 [facility] LABORATORY Comment: Supplemental ranges: <140 mg/dL before meals <180 mg/dL all other times of the day Specimen Anatomical Collection Method Collection Time Receive d Time (Source) Location / / Volume Laterality Blood specimen 08/12/2017 11:28 8 (specimen) PM EST 11:28 PM EST Yonathan Smith MD POINT OF CARE TEST ORDERABLE S Performing Organization Address City/[facility]/[place] [address] (ABNORMAL) POCT Glucose (08/12/2017 7:40 PM EST) athologist Signature POC Glucose 209 (H) 65 - 199 [facility] mg/dL [facility] LABORATORY Comment: Supplemental ranges: <140 mg/dL before meals <180 mg/dL all other times of the day Specimen Anatomical Collection Method Collection Time Receive d Time (Source) Location / / Volume Laterality Blood specimen 08/12/2017 7:40 PM 018 7:40 (specimen) EST PM EST Yonathan Smith MD POINT OF CARE TEST ORDERABLE S Performing Organization Address City/State/ZIP Code Phon e Number [address] POCT Glucose (08/12/2017 4:24 PM EST) athologist Signature POC Glucose 161 65 - 199 [facility] LABORATORY Comment: Supplemental ranges: <140 mg/dL before meals <180 mg/dL all other times of the day Specimen Anatomical Collection Method Collection Time Receive d Time (Source) Location / / Volume Laterality Blood specimen 08/12/2017 4:24 PM 018 4:24 (specimen) EST PM EST Yonathan Smith MD POINT OF CARE TEST ORDERABLE S Performing Organization Address City/State/[place] [address] POCT Glucose (08/12/2017 12:00 PM EST) athologist Signature POC Glucose 167 65 - 199 [place] [facility] mg/dL [facility] LABORATORY Comment: Supplemental ranges: <140 mg/dL before meals <180 mg/dL all other times of the day Specimen Anatomical Collection Method Collection Time Receive d Time (Source) Location / / Volume Laterality Blood specimen 08/12/2017 12:00 8 (specimen) PM EST 12:00 PM EST Yonathan Smith MD POINT OF CARE TEST ORDERABLE S Performing Organization Address City/State/[place] [address] POCT Glucose (08/12/2017 7:25 AM EST) P athologist Signature POC Glucose 152 65 - 199 [facility] mg/dL [facility] LABORATORY Comment: Supplemental ranges: <140 mg/dL before meals <180 mg/dL all other times of the day Specimen Anatomical Collection Method Collection Time Receive d Time (Source) Location / / Volume Laterality Blood specimen 08/12/2017 7:25 AM 018 7:25 (specimen) EST AM EST Yonathan Smith MD POINT OF CARE TEST ORDERABLE S Performing Organization Address City/State/[place] [address] (ABNORMAL) Differential, Automated (08/12/2017 6:29 AM EST) Patholo gist Method Time Signature Neutrophils % 78.7 % [facility] LABORATORY Neutr Abs (ANC) 7.94 (H) 1.70 - [facility] 6.10 [facility] x10(3)/[facility] LABORATORY Lymphocytes % 8.8 % [facility] LABORATORY Lymphocytes Abs 0.9 0.9 - 3.2 [facility] x10(3)/[facility] LABORATORY Monocytes % 7.8 % [facility] LABORATORY Monocyte Abs 0.8 0.3 - 0.9 [facility] x10(3)/[facility] LABORATORY Eosinophils % 3.9 % [facility] LABORATORY Eosinophils Abs 0.4 0.0 - 0.4 [facility] x10(3)/[facility] LABORATORY Basophils % 0.3 % [facility] LABORATORY Basophils Abs 0.0 0.0 - 0.1 [facility] x10(3)/[facility] LABORATORY Immature Gran % 0.50 % [place] [...] Organization Address City/State/[place] [address] (ABNORMAL) Hemogram (08/12/2017 6:29 AM EST) Analysis Performed At Patho logist Time Signature WBC 10.1 (H) 4.0 - 9.5 [facility] x10(3)/[facility] LABORATORY RBC 3.02 (L) 4.58 - [facility] 5.54 [facility] x10(6)/[facility] LABORATORY Hemoglobin 8.7 (L) 13.7 - [facility] 16.5 gm/dL [facility] LABORATORY Hematocrit 28.1 (L) 40.5 - [facility] 48.5 % [facility] LABORATORY MCV 93.0 82.9 - [facility] 93.1 [facility] LABORATORY MCH 28.8 27.5 - [facility] 32.1 pg [facility] LABORATORY MCHC 31.0 (L) 32.0 - [facility] 35.7 gm/dL [facility] LABORATORY Platelets 223 145 - 357 [facility] x10(3)/[facility] LABORATORY RDWSD 56.1 (H) 36.0 - [facility] 45.0 [facility] LABORATORY RDWCV 16.4 (H) 11.4 - [facility] SU 13.8 % [facility] LABORATORY MPV 9.0 7.6 - 12.9 [facility] LABORATORY nRBC % Auto 0.0 % [facility] LABORATORY nRBC Abs Auto 0.000 0.000 - [facility] SU 0.000 [facility] x10(3)/[facility] LABORATORY Specimen Anatomical Collection Method Collection Time Receive d Time (Source) Location / / Volume Laterality Blood specimen 08/12/2017 6:29 AM 018 6:38 (specimen) EST AM EST Resulting Agency Comment Spec In Lab Yonathan Smith MD HEMATOLOGY ORDERABLES Performing Organization Address City/[facility]/[place] [address] (ABNORMAL) Prothrombin Time (08/12/2017 [...] Smith MD HEMATOLOGY ORDERABLES Performing Organization Address City/[facility]/[place] [address] (ABNORMAL) Basic Metabolic Panel (non-fasting) (08/12/2017 6:29 AM EST) athologist Signature Glucose Lvl 151 65 - 199 [facility] mg/dL [facility] LABORATORY Comment: [...] estions. Chloride 99 98 - 107 mmol/L [facility] LABORATORY CO2 28 22 - 31 mmol/L [facility] LABORATORY Anion Gap 11 5 - 15 mmol/L [facility] LABORATORY Calcium 7.9 (L) 8.5 - 10.5 mg/dL [facility] LABORATORY Estimated GFR >60 >=60 [facility] LABORATORY Comment: The reported eGFR should be multiplied b y 1.2 for patients. The MDRD is not an appropriate measure o f renal function for patients with body mass extremes or in patients with acute kidney failure. [email or web address] [email or web address] Specimen Anatomical Collection Method Collection Time Receive d Time (Source) Location / / Volume Laterality Blood specimen 08/12/2017 6:29 AM 018 6:38 (specimen) EST AM EST Resulting Agency Comment Spec In Lab Yonathan Smith MD CHEMISTRY ORDERABLES Performing Organization Address City/[facility]/ZIP Code Phon e Number [address] POCT Glucose (08/12/2017 4:08 AM EST) athologist Signature POC Glucose 181 65 - 199 [facility] mg/dL [facility] LABORATORY Comment: Supplemental ranges: <140 mg/dL before meals <180 mg/dL all other times of the day Specimen Anatomical Collection Method Collection Time Receive d Time (Source) Location / / Volume Laterality Blood specimen 08/12/2017 4:08 AM 018 4:08 (specimen) EST AM EST Yonathan Smith MD POINT OF CARE TEST ORDERABLE S Performing Organization Address City/[facility]/[place] [address] (ABNORMAL) POCT Glucose (08/12/2017 12:17 AM EST) athologist Signature POC Glucose 221 (H) 65 - 199 [facility]dL [facility] LABORATORY Comment: Supplemental ranges: <140 mg/dL before meals <180 mg/dL all other times of the day Specimen Anatomical Collection Method Collection Time Receive d Time (Source) Location / / Volume Laterality Blood specimen 08/12/2017 12:17 8 (specimen) AM EST 12:17 AM EST Yonathan Smith MD POINT OF CARE TEST ORDERABLE S Performing Organization Address City/State/[place] [address] (ABNORMAL) POCT Glucose (08/11/2017 8:52 PM EST) athologist Signature POC Glucose 221 (H) 65 - 199 [place] [facility] mg/dL [facility] LABORATORY Comment: Supplemental ranges: <140 mg/dL before meals <180 mg/dL all other times of the day Specimen Anatomical Collection Method Collection Time Receive d Time (Source) Location / / Volume Laterality Blood specimen 08/11/2017 8:52 PM 018 8:52 (specimen) EST PM EST Yonathan Smith MD POINT OF CARE TEST ORDERABLE S Performing Organization Address City/[facility]/[place] [address] POCT Glucose (08/11/2017 5:59 PM EST) athologist Signature POC Glucose 169 65 - 199 [place] [facility] mg/dL [facility] LABORATORY Comment: Supplemental ranges: <140 mg/dL before meals <180 mg/dL all other times of the day Specimen Anatomical Collection Method Collection Time Receive d Time (Source) Location / / Volume Laterality Blood specimen 08/11/2017 5:59 PM 018 5:59 (specimen) EST PM EST Yonathan Smith MD POINT OF CARE TEST ORDERABLE S Performing Organization Address City/State/[place] [address] (ABNORMAL) POCT Glucose (08/11/2017 4:08 PM EST) athologist Signature POC Glucose 240 (H) 65 - 199 [place] [facility] mg/dL [facility] LABORATORY Comment: Supplemental ranges: <140 mg/dL before meals <180 mg/dL all other times of the day Specimen Anatomical Collection Method Collection Time Receive d Time (Source) Location / / Volume Laterality Blood specimen 08/11/2017 4:08 PM 018 4:08 (specimen) EST PM EST Yonathan Smith MD POINT OF CARE TEST ORDERABLE S Performing Organization Address City/State/ZIP Code Phon e Number [address] POCT Glucose (08/11/2017 12:04 PM EST) athologist Signature POC Glucose 182 65 - 199 [facility] LAB[facility]ORY Comment: Supplemental ranges: <140 mg/dL before meals <180 mg/dL all other times of the day Specimen Anatomical Collection Method Collection Time Receive d Time (Source) Location / / Volume Laterality Blood specimen 08/11/2017 12:04 8 (specimen) PM EST 12:04 PM EST Yonathan Smith MD POINT OF CARE TEST ORDERABLE S Performing Organization Address City/[facility]/[place] [address] POCT Glucose (08/11/2017 7:31 AM EST) athologist Signature POC Glucose 156 65 - 199 [facility] LABORATORY Comment: Supplemental ranges: <140 mg/dL before meals <180 mg/dL all other times of the day Specimen Anatomical Collection Method Collection Time Receive d Time (Source) Location / / Volume Laterality Blood specimen 08/11/2017 7:31 AM 018 7:31 (specimen) EST AM EST Yonathan Smith MD POINT OF CARE TEST ORDERABLE S Performing Organization Address City/State/ZIP Code Phon e Number [address] (ABNORMAL) Differential, Automated (08/11/2017 6:16 AM EST) [facility] gist Method Time Signature Neutrophils % 83.7 % [facility] LABORATORY Neutr Abs (ANC) 10.76 (H) 1.70 - [facility] 6.10 [facility] x10(3)/[facility] L LABORATORY Lymphocytes % 6.0 % [facility] LABORATORY Lymphocytes Abs 0.8 (L) 0.9 - 3.2 [facility] x10(3)/[facility] LABORATORY Monocytes % 7.5 % [facility] LABORATORY Monocyte Abs 1.0 (H) 0.3 - 0.9 [facility] x10(3)/[facility] LABORATORY Eosinophils % 2.0 % [facility] LABORATORY Eosinophils Abs 0.3 0.0 - 0.4 [facility] x10(3)/[facility] LABORATORY Basophils % 0.3 % [facility] LABORATORY Basophils Abs 0.0 0.0 - 0.1 [facility] x10(3)/[facility] LABORATORY Immature Gran % 0.50 % [place] [...] Organization Address City/State/[place] [address] (ABNORMAL) Hemogram (08/11/2017 6:16 AM EST) Analysis Performed At Patho logist Time Signature WBC 12.9 (H) 4.0 - 9.5 [facility] x10(3)/[facility] LABORATORY RBC 3.28 (L) 4.58 - [facility] 5.54 [facility] x10(6)/[facility] LABORATORY Hemoglobin 9.5 (L) 13.7 - [facility] 16.5 gm/dL [facility] LABORATORY Hematocrit 29.8 (L) 40.5 - [place] [facility] 48.5 % [facility] LABORATORY MCV 90.9 82.9 - [facility] 93.1 [facility] LABORATORY MCH 29.0 27.5 - [place] [facility] 32.1 [facility] LABORATORY MCHC 31.9 (L) 32.0 - [place] 35.7 gm/dL [facility] Platelets 236 145 - 357 [facility] x10(3)/[facility] LABORATORY RDWSD 53.5 (H) 36.0 - [place] [facility] 45.0 [facility] LABORATORY RDWCV 16.3 (H) 11.4 - [facility] 13.8 % [facility] LABORATORY MPV 8.8 7.6 - 12.9 [facility] nRBC % Auto 0.0 % [facility] nRBC Abs Auto 0.000 0.000 - [facility] 0.000 [facility] x10(3)/[facility] LABORATORY Specimen Anatomical Collection Method Collection Time Receive d Time (Source) Location / / Volume Laterality Blood specimen 08/11/2017 6:16 AM 018 6:24 (specimen) EST AM EST Resulting Agency Comment Spec In Lab Yonathan Smith MD HEMATOLOGY ORDERABLES Performing Organization Address City/State/ZIP Code Phon e Number [place] [id number]OS[address] (ABNORMAL) Prothrombin Time (08/11/2017 [...] Organization Address City/State/[place] [address] Basic Metabolic Panel (non-fasting) (08/11/2017 6:16 AM EST) P athologist Signature Glucose Lvl 139 65 - 199 [facility] mg/dL [facility] LABORATORY Comment: [...] [facility] Estimated GFR >60 >=60 [facility] LABORATORY Comment: The reported eGFR should be multiplied b y 1.2 for patients. The MDRD is not an appropriate measure o f renal function for patients with body mass extremes or in patients with acute kidney failure. http://[email or web address] Assurance/DHnkdep [email or web address].Information Assurance/DHMCnkf Specimen Anatomical Collection Method Collection Time Receive d Time (Source) Location / / Volume Laterality Blood specimen 08/11/2017 6:16 AM 018 6:24 (specimen) EST AM EST Resulting Agency Comment Spec In Lab Yonathan Smith MD CHEMISTRY ORDERABLES Performing Organization Address City/State/ZIP Code Phon e Number [address] POCT Glucose (08/11/2017 4:07 AM EST) athologist Signature POC Glucose 162 65 - 199 [place] [facility] mg/dL [facility] LABORATORY Comment: Supplemental ranges: <140 mg/dL before meals <180 mg/dL all other times of the day Specimen Anatomical Collection Method Collection Time Receive d Time (Source) Location / / Volume Laterality Blood specimen 08/11/2017 4:07 AM 018 4:07 (specimen) EST AM EST Yonathan Smith MD POINT OF CARE TEST ORDERABLE S Performing Organization Address City/[facility]/ZIP Code Phon e Number [place] [address] POCT Glucose (08/10/2017 11:59 PM EST) athologist Signature POC Glucose 166 65 - 199 [place] [facility] mg/dL [facility] LABORATORY Comment: Supplemental ranges: <140 mg/dL before meals <180 mg/dL all other times of the day Specimen Anatomical Collection Method Collection Time Receive d Time (Source) Location / / Volume Laterality Blood specimen 08/10/2017 11:59 8 (specimen) PM EST 11:59 PM EST Yonathan Smith MD POINT OF CARE TEST ORDERABLE S Performing Organization Address City/[facility]/ZIP Code Phon e Number [place] [address] POCT Glucose (08/10/2017 8:12 PM EST) athologist Signature POC Glucose 156 65 - 199 [place] [facility] mg/dL [facility] LABORATORY Comment: Supplemental ranges: <140 mg/dL before meals <180 mg/dL all other times of the day Specimen Anatomical Collection Method Collection Time Receive d Time (Source) Location / / Volume Laterality Blood specimen 08/10/2017 8:12 PM 018 8:12 (specimen) EST PM EST Yonathan Smith MD POINT OF CARE TEST ORDERABLE S Performing Organization Address City/State/[place] [address] (ABNORMAL) POCT Glucose (08/10/2017 4:42 PM EST) P athologist Signature POC Glucose 211 (H) 65 - 199 [facility]/dL [facility] LABORATORY Comment: Supplemental ranges: <140 mg/dL before meals <180 mg/dL all other times of the day Specimen Anatomical Collection Method Collection Time Receive d Time (Source) Location / / Volume Laterality Blood specimen 08/10/2017 4:42 PM 018 4:42 (specimen) EST PM EST Yonathan Smith MD POINT OF CARE TEST ORDERABLE S Performing Organization Address City/State/ZIP Code Phon e Number [address] (ABNORMAL) Differential, Automated (08/10/2017 2:30 PM EST) Patholo gist Method Time Signature Neutrophils % 87.6 % [facility] LABORATORY Neutr Abs (ANC) 9.90 (H) 1.70 - [facility] 6.10 [facility] x10(3)/[facility] L LABORATORY Lymphocytes % 4.3 % [facility] LABORATORY Lymphocytes Abs 0.5 (L) 0.9 - 3.2 [facility] x10(3)/[facility] LABORATORY Monocytes % 6.0 % [facility] LABORATORY Monocyte Abs 0.7 0.3 - 0.9 [facility] x10(3)/[facility] LABORATORY Eosinophils % 1.1 % [facility] LABORATORY Eosinophils Abs 0.1 0.0 - 0.4 [facility] x10(3)/[facility] LABORATORY Basophils % 0.4 % [facility] LABORATORY Basophils Abs 0.0 0.0 - 0.1 [facility] x10(3)/[facility] LABORATORY Immature Gran % 0.60 % [place] [...] Gran Abs 0.07 (H) 0.00 - 0.04 x10(3)/[facility] LABORATORY Specimen Anatomical Collection Method Collection Time Receive d Time (Source) Location / / Volume Laterality Blood specimen 08/10/2017 2:30 PM 018 2:48 (specimen) EST PM EST Resulting Agency Comment Spec In Lab Yonathan Smith MD HEMATOLOGY ORDERABLES Performing Organization Address City/State/[place] [address] (ABNORMAL) Hemogram (08/10/2017 2:30 PM EST) Analysis Performed At Patho logist Time Signature WBC 11.3 (H) 4.0 - 9.5 [facility] x10(3)/[facility] LABORATORY RBC 3.13 (L) 4.58 - [facility] SU 5.54 [facility] x10(6)/[facility] LABORATORY Hemoglobin 8.9 (L) 13.7 - [facility] 16.5 gm/dL [facility] LABORATORY Hematocrit 28.4 (L) 40.5 - [facility] 48.5 % [facility] LABORATORY MCV 90.7 82.9 - [facility] 93.1 [facility] LABORATORY MCH 28.4 27.5 - [facility] 32.1 pg [facility] LABORATORY MCHC 31.3 (L) 32.0 - [facility] 35.7 gm/dL [facility] LABORATORY Platelets 213 145 - 357 [facility] x10(3)/[facility] LABORATORY RDWSD 53.7 (H) 36.0 - [facility] SU 45.0 [facility] LABORATORY RDWCV 16.4 (H) 11.4 - [facility] SU 13.8 % [facility] LABORATORY MPV 8.9 7.6 - 12.9 [facility] LABORATORY nRBC % Auto 0.0 % [facility] LABORATORY nRBC Abs Auto 0.000 0.000 - [facility] SU 0.000 [facility] x10(3)/[facility] LABORATORY Specimen Anatomical Collection Method Collection Time Receive d Time (Source) Location / / Volume Laterality Blood specimen 08/10/2017 2:30 PM 018 2:48 (specimen) EST PM EST Resulting Agency Comment Spec In Lab Yonathan Smith MD HEMATOLOGY ORDERABLES Performing Organization Address City/State/[place] [address] (ABNORMAL) POCT Glucose (08/10/2017 1:50 PM EST) athologist Signature POC Glucose 243 (H) 65 - 199 [facility] LAB[facility]ORY Comment: Supplemental ranges: <140 mg/dL before meals <180 mg/dL all other times of the day Specimen Anatomical Collection Method Collection Time Receive d Time (Source) Location / / Volume Laterality Blood specimen 08/10/2017 1:50 PM 018 1:50 (specimen) EST PM EST Yonathan Smith MD POINT OF CARE TEST ORDERABLE S Performing Organization Address City/[facility]/[place] [address] POCT Glucose (08/10/2017 11:21 AM EST) athologist Signature POC Glucose 156 65 - 199 [facility] LAB[facility]ORY Comment: Supplemental ranges: <140 mg/dL before meals <180 mg/dL all other times of the day Specimen Anatomical Collection Method Collection Time Receive d Time (Source) Location / / Volume Laterality Blood specimen 08/10/2017 11:21 8 (specimen) AM EST 11:21 AM EST Yonathan Smith MD POINT OF CARE TEST ORDERABLE S Performing Organization Address City/State/[place] [address] (ABNORMAL) Differential, Automated (08/10/2017 10:28 AM EST) [facility] gist Method Time Signature Neutrophils % 85.3 % [facility] LABORATORY Neutr Abs (ANC) 9.43 (H) 1.70 - [facility] SU 6.10 [facility] x10(3)/[facility] L LABORATORY Lymphocytes % 5.5 % [facility] LABORATORY Lymphocytes Abs 0.6 (L) 0.9 - 3.2 [facility] x10(3)/[facility] LABORATORY Monocytes % 5.9 % [facility] LABORATORY Monocyte Abs 0.6 0.3 - 0.9 [facility] x10(3)/[facility] LABORATORY Eosinophils % 2.1 % [facility] LABORATORY Eosinophils Abs 0.2 0.0 - 0.4 [facility] x10(3)/[facility] LABORATORY Basophils % 0.4 % [facility] LABORATORY Basophils Abs 0.0 0.0 - 0.1 [facility] x10(3)/[facility] LABORATORY Immature Gran % 0.80 % [facility] LABORATORY Comment: Immature granulocytes(IG's)percentage an d absolute count will include metamyelocytes, myelocytes, and promyelo cytes. Blood smears from CBCs yielding IG's will be scanned manually for concor dance. If this scan disagrees with the automated IG or if promyelocytes are not ed, a manual differential will be performed. Melisa Gran Abs 0.09 (H) 0.00 - 0.04 x10(3)/[facility] LABORATORY Specimen Anatomical Collection Method Collection Time Receive d Time (Source) Location / / Volume Laterality Blood specimen 08/10/2017 10:28 8 (specimen) AM EST 10:35 AM EST Resulting Agency Comment Spec In Lab Yonathan Smith MD HEMATOLOGY ORDERABLES Performing Organization Address City/State/[place] [address] (ABNORMAL) Hemogram (08/10/2017 10:28 AM EST) Analysis Performed At Patho logist Time Signature WBC 11.0 (H) 4.0 - 9.5 [facility] x10(3)/[facility] LABORATORY RBC 3.02 (L) 4.58 - [facility] 5.54 [facility] x10(6)/[facility] LABORATORY Hemoglobin 8.8 (L) 13.7 - [facility] 16.5 gm/dL [facility] LABORATORY Hematocrit 28.1 (L) 40.5 - BAR[place] DAVIS 48.5 % [facility] LABORATORY MCV 93.0 82.9 - [facility] 93.1 [facility] LABORATORY MCH 29.1 27.5 - BARBARA OLIVASCK 32.1 pg [facility] LABORATORY MCHC 31.3 (L) 32.0 - [place] DAVIS 35.7 gm/dL [facility] LABORATORY Platelets 207 145 - 357 [place] SHAW x10(3)/[facility] LABORATORY RDWSD 55.3 (H) 36.0 - [place] OLIVASCK 45.0 [facility] LABORATORY RDWCV 16.4 (H) 11.4 - [place] SU 13.8 % [facility] LABORATORY MPV 9.0 7.6 - 12.9 [facility] LABORATORY nRBC % Auto 0.0 % [facility] LABORATORY nRBC Abs Auto 0.000 0.000 - [place] ZHAOSU 0.000 [facility] x10(3)/[facility] LABORATORY Specimen Anatomical Collection Method Collection Time Receive d Time (Source) Location / / Volume Laterality Blood specimen 08/10/2017 10:28 8 (specimen) AM EST 10:35 AM EST Resulting Agency Comment Spec In Lab Yonathan Smith MD HEMATOLOGY ORDERABLES Performing Organization Address City/State/ZIP Code Phon e Number [place] [id number] HOSP[address] LAB[address]ORY [address] VS Angiogram/intervention (vascular) (08/10/2017 [...] 2.5x80 5. Completion RLE angiogram 6. L [employer] angiogram 7. 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 - L [employer] angriogram demonstrated: High fe moral bifurcation over the proximal half of the femoral head. L [employer] access in the distal L [employer]. - Closure device: Mynx Technical Procedure: ?The [...] for a 45cm 5F Destination. V18 and [place] a nd QuickCross catheters were used to [...] bifurcation. Access appeared in the distal R [employer]. Closure and sheath removal was performed with [...] 2.5x80 5. Completion RLE angiogram 6. L [employer] angiogram 7. 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 - L [employer] angriogram demonstrated: High fe moral bifurcation over the proximal half of the femoral head. L [employer] access in the distal L [employer]. - Closure device: Mynx Technical Procedure: The [...] for a 45cm 5F Destination. V18 and [place] a nd QuickCross catheters were used to [...] bifurcation. Access appeared in the distal R [employer]. Closure and sheath removal was performed with [...] (ABNORMAL) Differential, Automated (08/10/2017 5:50 AM EST) [facility] Method Time Signature Neutrophils % 80.1 % [facility] LABORATORY Neutr Abs (ANC) 9.01 (H) 1.70 - [facility] 6.10 [facility] x10(3)/[facility] LABORATORY Lymphocytes % 8.8 % [facility] LABORATORY Lymphocytes Abs 1.0 0.9 - 3.2 [facility] LABORATORY Monocytes % 8.3 % [facility] LABORATORY Monocyte Abs 0.9 0.3 - 0.9 [facility] x[facility](3[facility] LABORATORY Eosinophils % 2.0 % [facility] LABORATORY Eosinophils Abs 0.2 0.0 - 0.4 [facility] x10(3)/[facility] LABORATORY Basophils % 0.4 % [facility] LABORATORY Basophils Abs 0.0 0.0 - 0.1 [facility] x10(3)/[facility] LABORATORY Immature Gran % 0.40 % [facility] [...] Organization Address City/State/[place] [address] (ABNORMAL) Hemogram (08/10/2017 5:50 AM EST) Analysis Performed At Patho logist Time Signature WBC 11.3 (H) 4.0 - 9.5 [facility] x10(3)/[facility] LABORATORY RBC 3.15 (L) 4.58 - [facility] 5.54 [facility] x10(6)/[facility] LABORATORY Hemoglobin 8.9 (L) 13.7 - [facility] 16.[facility] gm/dL [facility] LABORATORY Hematocrit 29.0 (L) 40.5 - [facility] 48.5 % [facility] LABORATORY MCV 92.1 82.9 - [facility] 93[facility]1 [facility] LABORATORY MCH 28.3 27.5 - [place] SU 32.1 pg [facility] LABORATORY MCHC 30.7 (L) 32.0 - [facility] 35.7 gm/dL [facility] LABORATORY Platelets 231 145 - 357 [facility] x10(3)/[facility] LABORATORY RDWSD 53.9 (H) 36.0 - [place] SU 45.0 [facility] LABORATORY RDWCV 16.2 (H) 11.4 - [facility] SU 13.8 % [facility] LABORATORY MPV 8.7 7.6 - 12.9 [facility] LABORATORY nRBC % Auto 0.0 % [facility] LABORATORY nRBC Abs Auto 0.000 0.000 - [facility] 0.000 [facility] x10(3)/[facility] LABORATORY Specimen Anatomical Collection Method Collection Time Receive d Time (Source) Location / / Volume Laterality Blood specimen 08/10/2017 5:50 AM 018 5:59 (specimen) EST AM EST Resulting Agency Comment Spec In Lab Yonathan Smith MD HEMATOLOGY ORDERABLES Performing Organization Address City/State/[place] [address] (ABNORMAL) Basic Metabolic Panel (non-fasting) (08/10/2017 5:50 AM EST) P athologist Signature Glucose Lvl 135 65 - 199 [facility] mg/dL [facility] LABORATORY Comment: [...] [facility] Estimated GFR >60 >=60 [facility] LABORATORY Comment: The reported eGFR should be multiplied b y 1.2 for patients. The MDRD is not an appropriate measure o f renal function for patients with body mass extremes or in patients with acute kidney failure. http://[employer].Information Assurance/DHnkdep http://Cloudj[employer].Information Assurance/DHMCnkf Specimen Anatomical Collection Method Collection Time Receive d Time (Source) Location / / Volume Laterality Blood specimen 08/10/2017 5:50 AM 018 5:59 (specimen) EST AM EST Resulting Agency Comment Spec In Lab Yonathan Smith MD CHEMISTRY ORDERABLES Performing Organization Address [facility] [place] [address] (ABNORMAL) Prothrombin Time (08/10/2017 5:50 AM EST) athologist Signature PT 16.8 (H) 11.8 - 14.0 [facility] LABORATORY INR 1.4 (H) 0.9 - 1.1 [facility] [...] Smith MD HEMATOLOGY ORDERABLES Performing Organization Address City/[facility] [place] [address] (ABNORMAL) POCT Glucose (08/10/2017 4:01 AM EST) athologist Signature POC Glucose 206 (H) 65 - 199 [facility] mg/dL [facility] LABORATORY Comment: Supplemental ranges: <140 mg/dL before meals <180 mg/dL all other times of the day Specimen Anatomical Collection Method Collection Time Receive d Time (Source) Location / / Volume Laterality Blood specimen 08/10/2017 4:01 AM 018 4:01 (specimen) EST AM EST Yonathan Smith MD POINT OF CARE TEST ORDERABLE S Performing Organization Address City/State/[place] [address] POCT Glucose (08/10/2017 2:01 AM EST) athologist Signature POC Glucose 188 65 - 199 [place] SU mg/dL [facility] LABORATORY Comment: Supplemental ranges: <140 mg/dL before meals <180 mg/dL all other times of the day Specimen Anatomical Collection Method Collection Time Receive d Time (Source) Location / / Volume Laterality Blood specimen 08/10/2017 2:01 AM 018 2:01 (specimen) EST AM EST Yonathan Smith MD POINT OF CARE TEST ORDERABLE S Performing Organization Address City/[facility]/[place] [address] (ABNORMAL) POCT Glucose (08/09/2017 11:42 PM EST) athologist Signature POC Glucose 283 (H) 65 - 199 [facility] SU mg/dL [facility] LABORATORY Comment: Supplemental ranges: <140 mg/dL before meals <180 mg/dL all other times of the day Specimen Anatomical Collection Method Collection Time Receive d Time (Source) Location / / Volume Laterality Blood specimen 08/09/2017 11:42 8 (specimen) PM EST 11:42 PM EST Yonathan Smith MD POINT OF CARE TEST ORDERABLE S Performing Organization Address City/State/[place] [address] POCT Glucose (08/09/2017 8:55 PM EST) athologist Signature POC Glucose 182 65 - 199 [place] SU mg/dL [facility] LABORATORY Comment: Supplemental ranges: <140 mg/dL before meals <180 mg/dL all other times of the day Specimen Anatomical Collection Method Collection Time Receive d Time (Source) Location / / Volume Laterality Blood specimen 08/09/2017 8:55 PM 018 8:55 (specimen) EST PM EST Yonathan Smith MD POINT OF CARE TEST ORDERABLE S Performing Organization Address City/[facility]/[place] [address] (ABNORMAL) APTT (08/09/2017 6:42 PM EST) athologist Signature PTT 90 (H) 25 - 35 sec [facility] Smith MD HEMATOLOGY ORDERABLES Performing Organization Address City/[facility]/[place] [address] POCT Glucose (08/09/2017 4:41 PM EST) athologist Signature POC Glucose 195 65 - 199 [facility] mg/dL [facility] LABORATORY Comment: Supplemental ranges: <140 mg/dL before meals <180 mg/dL all other times of the day Specimen Anatomical Collection Method Collection Time Receive d Time (Source) Location / / Volume Laterality Blood specimen 08/09/2017 4:41 PM 018 4:41 (specimen) EST PM EST Yonathan Smith MD POINT OF CARE TEST ORDERABLE S Performing Organization Address City/[facility]/[place] [address] POCT Glucose (08/09/2017 12:29 PM EST) athologist Signature POC Glucose 140 65 - 199 [facility] mg/dL [facility] LABORATORY Comment: Supplemental ranges: <140 mg/dL before meals <180 mg/dL all other times of the day Specimen Anatomical Collection Method Collection Time Receive d Time (Source) Location / / Volume Laterality Blood specimen 08/09/2017 12:29 8 (specimen) PM EST 12:29 PM EST Yonathan Smith MD POINT OF CARE TEST ORDERABLE S Performing Organization Address [facility]/ZIP Code Phon e Number [address] POCT Glucose (08/09/2017 9:59 AM EST) P athologist Signature POC Glucose 135 65 - 199 [facility] mg/dL [facility] LABORATORY Comment: Supplemental ranges: <140 mg/dL before meals <180 mg/dL all other times of the day Specimen Anatomical Collection Method Collection Time Receive d Time (Source) Location / / Volume Laterality Blood specimen 08/09/2017 9:59 AM 018 9:59 (specimen) EST AM EST Yonathan Smith MD POINT OF CARE TEST ORDERABLE S Performing Organization Address [facility]/[place] [address] Specimen to Pathology (08/09/2017 8:41 AM EST) Specimen Anatomical Collection Method Collection Time Receive d Time (Source) Location / / Volume Laterality AP Specimen 08/09/2017 8:41 AM 8 8:41 EST AM EST Narrative [facility] LABORAT ORY - 08/09/2017 8:41 AM EST Specimen requisition ordered. ??Separate Pathology report to follow Yonathan Smith MD PATHOLOGY/CYTOLOGY ORDERABLE S Performing Organization Address City/[facility]/[place] [address] Surgical Pathology Report (08/09/2017 8:40 AM EST) Component Value Ref Test Analysis Performed At Patholo gist Range Method Time Signature Surgical [id number] ? Location: [facility]; [facility]; A [facility] Report The signing pathologist has (i) [...] Verified: ??08/13/2017 ?Pathologist Performed at: ??-[facility] [place], [place], [place] CLINICAL INFORMATION Specimen Submitted: A - [...] Organization Address City/State/[place] [address] Anaerobic Culture (08/09/2017 8:30 AM EST) [facility] Method Time Signature Anaerobic No anaerobic [place] SU Culture organisms [facility] LABORATORY Specimen Anatomical Collection Method Collection Time Receive d Time (Source) Location / / Volume Laterality Specimen from STRUCTURE OF RIGHT 08/09/2017 8:30 AM 9:10 abscess FOOT / Unknown EST AM EST (specimen) Comment: SWAB RIGHT GREAT TOE ABSCESS FO R AEROBIC AND ANAEROBIC CULTURES. Resulting Agency Comment Spec In Lab Yonathan Smith MD MICROBIOLOGY - GENERAL ORDER ROBSON Performing Organization Address City/[facility]/[place] [address] (ABNORMAL) Abscess/Wound Aspirate Culture (08/09/2017 8:30 AM EST) [facility] [employer] Method Time Signature Abscess/Wound Moderate mixed [facility] Aspirate bacterial SHAW Culture morphotypes [facility] normal LABORATORY cutaneous leroy (A) Gram Stain Rare White Blood Cells BARBARA Few Gram Positive Cocci in pairs SHAW () [facility] LABORATORY Organism Gram Positive BARBARA Cocci in pairs SHAW () [facility] LABORATORY Specimen Anatomical [...] - GENERAL ORDER ROBSON Performing Organization Address City/[facility]/ZIP Code Phon e Number [place] [address] POCT Glucose (08/09/2017 4:28 AM EST) P athologist Signature POC Glucose 128 65 - 199 [facility] mg/dL [facility] LABORATORY Comment: Supplemental ranges: <140 mg/dL before meals <180 mg/dL all other times of the day Specimen Anatomical Collection Method Collection Time Receive d Time (Source) Location / / Volume Laterality Blood specimen 08/09/2017 4:28 AM 018 4:28 (specimen) EST AM EST Yonathan Smith MD POINT OF CARE TEST ORDERABLE S Performing Organization Address City/State/[place] [address] ABORH Recheck Status (08/09/2017 1:10 AM EST) [facility] Method Time Signature ABORH Type Completed [facility] LABORATORY Specimen Anatomical Collection Method Collection Time Receive d Time (Source) Location / / Volume Laterality Blood specimen 08/09/2017 1:10 AM 018 1:35 (specimen) EST AM EST Resulting Agency Comment Spec In Lab Yonathan Smith MD BLOOD BANK ORDERABLES Performing Organization Address City/State/[place] [address] Antibody screen (08/09/2017 1:10 AM EST) [facility] Method [place] Signature Ab Screen Negative [facility] LABORATORY Expires at 08/12/2017 [facility] [id number] on: [facility] LABORATORY Specimen Anatomical Collection Method Collection Time Receive d Time (Source) Location / / Volume Laterality Blood specimen 08/09/2017 1:10 AM 018 1:35 (specimen) EST AM EST Resulting Agency Comment Spec In Lab Yonathan Smith MD BLOOD BANK ORDERABLES Performing Organization Address City/State/[place] [address] ABO/Rh Typing (08/09/2017 1:10 [...] Organization Address City/State/[place] [address] (ABNORMAL) APTT (08/09/2017 1:10 AM EST) P athologist Signature PTT 86 (H) 25 - 35 sec [facility] Organization Address City/State/[place] [address] (ABNORMAL) Differential, Automated (08/09/2017 1:10 AM EST) [facility] Method Time Signature Neutrophils % 76.2 % [facility] LABORATORY Neutr Abs (ANC) 8.59 (H) 1.70 - [facility] 6.10 [facility] x10(3)/[facility] LABORATORY Lymphocytes % 11.0 % [facility] LABORATORY Lymphocytes Abs 1.2 0.9 - 3.2 [facility] x10(3)/[facility] LABORATORY Monocytes % 8.4 % [facility] LABORATORY Monocyte Abs 1.0 (H) 0.3 - 0.9 [facility] x10(3)/[facility] LABORATORY Eosinophils % 3.5 % [facility] LABORATORY Eosinophils Abs 0.4 0.0 - 0.4 [facility] x10(3)/[facility] LABORATORY Basophils % 0.5 % [facility] LABORATORY Basophils Abs 0.1 0.0 - 0.1 [facility] x10(3)/[facility] LABORATORY Immature Gran % 0.40 % [facility] [...] Organization Address City/State/[place] [address] (ABNORMAL) Hemogram (08/09/2017 1:10 AM EST) Analysis Performed At Patho logist Time Signature WBC 11.3 (H) 4.0 - 9.5 [facility] x10(3)/[facility] LABORATORY RBC 3.47 (L) 4.58 - [facility] 5.54 [facility] x10(6)/[facility] LABORATORY Hemoglobin 10.0 (L) 13.7 - [facility] 16.[facility] gm/dL [facility] LABORATORY Hematocrit 31.9 (L) 40.5 - [facility] 48.5 % [facility] LABORATORY MCV 91.9 82.9 - [facility] 93.1 [facility] LABORATORY MCH 28.8 27.5 - [facility] 32.1 pg [facility] LABORATORY MCHC 31.3 (L) 32.0 - [facility] 35.7 gm/dL [facility] LABORATORY Platelets 234 145 - 357 [facility] x10(3)/[facility] LABORATORY RDWSD 54.0 (H) 36.0 - [facility] SU 45.0 [facility] LABORATORY RDWCV 16.2 (H) 11.4 - [facility] SU 13.8 % [facility] LABORATORY MPV 8.7 7.6 - 12.9 [facility] LABORATORY nRBC % Auto 0.0 % [facility] LABORATORY nRBC Abs Auto 0.000 0.000 - [facility] SU 0.000 [facility] x10(3)/[facility] LABORATORY Specimen Anatomical Collection Method Collection Time Receive d Time (Source) Location / / Volume Laterality Blood specimen 08/09/2017 1:10 AM 018 1:19 (specimen) EST AM EST Resulting Agency Comment Spec In Lab Yonathan Smith MD HEMATOLOGY ORDERABLES Performing Organization Address City/[facility]/[place] [address] (ABNORMAL) Prothrombin Time (08/09/2017 [...] Smith MD HEMATOLOGY ORDERABLES Performing Organization Address City/[facility]/[place] [address] (ABNORMAL) Basic Metabolic Panel (non-fasting) (08/09/2017 1:10 AM EST) P athologist Signature Glucose Lvl 108 65 - 199 [facility] mg/dL [facility] LABORATORY Comment: [...] 107 mmol/L [facility] LABORATORY CO2 29 22 - 31 mmol/L [facility] LABORATORY Anion Gap 13 5 - 15 mmol/L [facility] LABORATORY Calcium 8.3 (L) 8.5 - 10.5 mg/dL [facility] LABORATORY Estimated GFR 45 (L) >=60 [facility] LABORATORY Comment: The reported eGFR should be multiplied b y 1.2 for patients. The MDRD is not an appropriate measure o f renal function for patients with body mass extremes or in patients with acute kidney failure. http://Inofile/DHnkdep http://Inofile/DHMCnkf Specimen Anatomical Collection Method Collection Time Receive d Time (Source) Location / / Volume Laterality Blood specimen 08/09/2017 1:10 AM 018 1:19 (specimen) EST AM EST Resulting Agency Comment Spec In Lab Yonathan Smith MD CHEMISTRY ORDERABLES Performing Organization Address City/State/ZIP Code Phon e Number [address] POCT Glucose (08/09/2017 12:05 AM EST) athologist Signature POC Glucose 128 65 - 199 [facility] mg/dL [facility] LABORATORY Comment: Supplemental ranges: <140 mg/dL before meals <180 mg/dL all other times of the day Specimen Anatomical Collection Method Collection Time Receive d Time (Source) Location / / Volume Laterality Blood specimen 08/09/2017 12:05 8 (specimen) AM EST 12:05 AM EST Yonathan Smith MD POINT OF CARE TEST ORDERABLE S Performing Organization Address City/[facility]/[place] [address] (ABNORMAL) POCT Glucose (08/08/2017 7:36 PM EST) athologist Signature POC Glucose 215 (H) 65 - 199 [facility] mg/dL [facility] LABORATORY Comment: Supplemental ranges: <140 mg/dL before meals <180 mg/dL all other times of the day Specimen Anatomical Collection Method Collection Time Receive d Time (Source) Location / / Volume Laterality Blood specimen 08/08/2017 7:36 PM 018 7:36 (specimen) EST PM EST Yonathan Smith MD POINT OF CARE TEST ORDERABLE S Performing Organization Address City/State/[place] [address] (ABNORMAL) POCT Glucose (08/08/2017 6:23 PM EST) P athologist Signature POC Glucose 216 (H) 65 - 199 [facility] mg/dL [facility] LABORATORY Comment: Supplemental ranges: <140 mg/dL before meals <180 mg/dL all other times of the day Specimen Anatomical Collection Method Collection Time Receive d Time (Source) Location / / Volume Laterality Blood specimen 08/08/2017 6:23 PM 018 6:23 (specimen) EST PM EST Yonathan Smith MD POINT OF CARE TEST ORDERABLE S Performing Organization Address City/[facility]/[place] [address] (ABNORMAL) APTT (08/08/2017 6:00 PM EST) P athologist Signature PTT 97 (H) 25 - 35 sec [facility] Smith MD HEMATOLOGY ORDERABLES Performing Organization Address City/[facility]/[place] [address] POCT Glucose (08/08/2017 4:42 PM EST) athologist Signature POC Glucose 78 65 - 199 [facility] mg/dL [facility] LAB[facility]ORY Comment: Supplemental ranges: <140 mg/dL before meals <180 mg/dL all other times of the day Specimen Anatomical Collection Method Collection Time Receive d Time (Source) Location / / Volume Laterality Blood specimen 08/08/2017 4:42 PM 018 4:42 (specimen) EST PM EST Yonathan Smith MD POINT OF CARE TEST ORDERABLE S Performing Organization Address City/State/[place] [address] (ABNORMAL) POCT Glucose (08/08/2017 4:01 PM EST) athologist Signature POC Glucose 58 (L) 65 - 199 [facility] Comment: Supplemental ranges: <140 mg/dL before meals <180 mg/dL all other times of the day Specimen Anatomical Collection Method Collection Time Receive d Time (Source) Location / / Volume Laterality Blood specimen 08/08/2017 4:01 PM 018 4:01 (specimen) EST PM EST Yonathan Smith MD POINT OF CARE TEST ORDERABLE S Performing Organization Address City/State/[place] [address] POCT Glucose (08/08/2017 11:51 AM EST) athologist Signature POC Glucose 90 65 - 199 [facility]dL [facility] Comment: Supplemental ranges: <140 mg/dL before meals <180 mg/dL all other times of the day Specimen Anatomical Collection Method Collection Time Receive d Time (Source) Location / / Volume Laterality Blood specimen 08/08/2017 11:51 8 (specimen) AM EST 11:51 AM EST Yonathan Smith MD POINT OF CARE TEST ORDERABLE S Performing Organization Address City/State/[place] [address] (ABNORMAL) APTT (08/08/2017 10:27 AM EST) athologist Signature PTT 64 (H) 25 - 35 sec [facility] [...] Address City/State/ZIP Code Phon e Number [address] POCT Glucose (08/08/2017 8:02 AM EST) athologist Signature POC Glucose 178 65 - 199 [facility] mg/dL [facility] Comment: Supplemental ranges: <140 mg/dL before meals <180 mg/dL all other times of the day Specimen Anatomical Collection Method Collection Time Receive d Time (Source) Location / / Volume Laterality Blood specimen 08/08/2017 8:02 AM 018 8:02 (specimen) EST AM EST Yonathan Smith MD POINT OF CARE TEST ORDERABLE S Performing Organization Address City/[facility]/[place] [address] (ABNORMAL) APTT (08/08/2017 4:51 AM EST) athologist Signature PTT >160 25 - 35 [facility] (Critical) sec [facility] Comment: Called by: HOWARD, Read [...] Organization Address City/State/[place] [address] (ABNORMAL) Differential, Automated (08/08/2017 4:51 AM EST) [facility] gist Method Time Signature Neutrophils % 77.9 % [facility] Neutr Abs (ANC) 8.17 (H) 1.70 - [facility] 6.10 [facility] x10(3)/[facility] LABORATORY Lymphocytes % 10.3 % [facility] Lymphocytes Abs 1.1 0.9 - 3.2 [facility] x10(3)/[facility] LABORATORY Monocytes % 7.0 % [facility] Monocyte Abs 0.7 0.3 - 0.9 [facility] x10(3)/[facility] LABORATORY Eosinophils % 3.6 % [facility] Eosinophils Abs 0.4 0.0 - 0.4 [facility] x10(3)/[facility] LABORATORY Basophils % 0.5 % [facility] Basophils Abs 0.0 0.0 - 0.1 [facility] x10(3)/[facility] LABORATORY Immature Gran % 0.70 % [facility] [...] Gran Abs 0.07 (H) 0.00 - 0.04 x10(3)/[facility] LABORATORY Specimen Anatomical Collection Method Collection Time Receive d Time (Source) Location / / Volume Laterality Blood specimen 08/08/2017 4:51 AM 018 5:14 (specimen) EST AM EST Resulting Agency Comment Spec In Lab Yonathan Smith MD HEMATOLOGY ORDERABLES Performing Organization Address City/State/[place] [address] (ABNORMAL) Hemogram (08/08/2017 4:51 AM EST) Analysis Performed At Patho logist Time Signature WBC 10.5 (H) 4.0 - 9.5 [facility] LABORATORY RBC 3.27 (L) 4.58 - [facility] 5.54 [facility] x10(6)/[facility] LABORATORY Hemoglobin 9.3 (L) 13.7 - [place] 16.5 gm/dL [facility] Hematocrit 30.3 (L) 40.5 - [facility] 48.5 % [facility] MCV 92.7 82.9 - [facility] 93.1 [facility] LABORATORY MCH 28.4 27.5 - [place] 32.1 pg [facility] MCHC 30.7 (L) 32.0 - [facility] 35.7 gm/dL [facility] Platelets 252 145 - 357 [facility] x10(3)/[facility] LABORATORY RDWSD 54.6 (H) 36.0 - [facility] 45.0 [facility] LABORATORY RDWCV 16.2 (H) 11.4 - [facility] 13.8 % [facility] MPV 9.1 7.6 - 12.9 [facility] LABORATORY nRBC % Auto 0.0 % [facility] nRBC Abs Auto 0.000 0.000 - [place] [facility] 0.000 [facility] x10(3)/[facility] LABORATORY Specimen Anatomical Collection Method Collection Time Receive d Time (Source) Location / / Volume Laterality Blood specimen 08/08/2017 4:51 AM 018 5:14 (specimen) EST AM EST Resulting Agency Comment Spec In Lab Yonathan Smith MD HEMATOLOGY ORDERABLES Performing Organization Address City/State/[place] [address] (ABNORMAL) Prothrombin Time (08/08/2017 4:51 AM EST) P athologist Signature PT 18.1 (H) 11.8 - 14.0 [facility] LABORATORY INR 1.5 (H) 0.9 - 1.1 [facility] [...] Organization Address City/State/[place] [address] (ABNORMAL) Basic Metabolic Panel (non-fasting) (08/08/2017 4:51 AM EST) athologist Signature Glucose Lvl 229 (H) 65 - 199 [facility] mg/dL [facility] Comment: [...] Chloride 94 (L) 98 - 107 mmol/L [facility] CO2 25 22 - 31 mmol/L [facility] Anion Gap 17 (H) 5 - 15 mmol/L [facility] Calcium 7.9 (L) 8.5 - 10.5 mg/dL [facility] Estimated GFR 44 (L) >=60 [facility] Comment: The reported eGFR should be multiplied b y 1.2 for patients. The MDRD is not an appropriate measure o f renal function for patients with body mass extremes or in patients with acute kidney failure. http://Inofile/DHnkdep http://Inofile/DHMCnkf Specimen Anatomical Collection Method Collection Time Receive d Time (Source) Location / / Volume Laterality Blood specimen 08/08/2017 4:51 AM 018 5:14 (specimen) EST AM EST Resulting Agency Comment Spec In Lab Yonathan Smith MD CHEMISTRY ORDERABLES Performing Organization Address City/[facility]/ZIP Code Phon e Number [address] POCT Glucose (08/08/2017 4:20 AM EST) athologist Signature POC Glucose 193 65 - 199 [facility] mg/dL [facility] Comment: Supplemental ranges: <140 mg/dL before meals <180 mg/dL all other times of the day Specimen Anatomical Collection Method Collection Time Receive d Time (Source) Location / / Volume Laterality Blood specimen 08/08/2017 4:20 AM 018 4:20 (specimen) EST AM EST Yonathan Smith MD POINT OF CARE TEST ORDERABLE S Performing Organization Address City/State/ZIP Code Phon e Number [address] POCT Glucose (08/07/2017 11:11 PM EST) athologist Signature POC Glucose 124 65 - 199 [facility] mg/dL [facility] Comment: Supplemental ranges: <140 mg/dL before meals <180 mg/dL all other times of the day Specimen Anatomical Collection Method Collection Time Receive d Time (Source) Location / / Volume Laterality Blood specimen 08/07/2017 11:11 8 (specimen) PM EST 11:11 PM EST Yonathan Smith MD POINT OF CARE TEST ORDERABLE S Performing Organization Address City/[facility]/[place] [address] (ABNORMAL) APTT (08/07/2017 10:18 PM EST) athologist Signature PTT 114 (H) 25 - 35 sec [facility] Smith MD HEMATOLOGY ORDERABLES Performing Organization Address City/[facility]/[place] [address] POCT Glucose (08/07/2017 8:10 PM EST) athologist Signature POC Glucose 140 65 - 199 [facility] mg/dL [facility] Comment: Supplemental ranges: <140 mg/dL before meals <180 mg/dL all other times of the day Specimen Anatomical Collection Method Collection Time Receive d Time (Source) Location / / Volume Laterality Blood specimen 08/07/2017 8:10 PM 018 8:10 (specimen) EST PM EST Yonathan Smith MD POINT OF CARE TEST ORDERABLE S Performing Organization Address City/[facility]/[place] [address] POCT Glucose (08/07/2017 5:27 PM EST) athologist Signature POC Glucose 187 65 - 199 [facility] mg/dL [facility] Comment: Supplemental ranges: <140 mg/dL before meals <180 mg/dL all other times of the day Specimen Anatomical Collection Method Collection Time Receive d Time (Source) Location / / Volume Laterality Blood specimen 08/07/2017 5:27 PM 018 5:27 (specimen) EST PM EST Yonathan Smith MD POINT OF CARE TEST ORDERABLE S Performing Organization Address City/[facility]/[place] [address] POCT Glucose (08/07/2017 3:29 PM EST) athologist Signature POC Glucose 86 65 - 199 [facility] Comment: Supplemental ranges: <140 mg/dL before meals <180 mg/dL all other times of the day Specimen Anatomical Collection Method Collection Time Receive d Time (Source) Location / / Volume Laterality Blood specimen 08/07/2017 3:29 PM 018 3:29 (specimen) EST PM EST Yonathan Smith MD POINT OF CARE TEST ORDERABLE S Performing Organization Address [facility]/ZIP [facility] [place] [address] (ABNORMAL) APTT (08/07/2017 2:50 PM EST) athologist Signature PTT 60 (H) 25 - 35 sec [facility] Smith MD HEMATOLOGY ORDERABLES Performing Organization Address City/[facility]/ZIP [facility] Phon e Number [address] (ABNORMAL) POCT Glucose (08/07/2017 2:23 PM EST) athologist Signature POC Glucose 55 (L) 65 - 199 [facility] mg/dL [facility] Comment: Supplemental ranges: <140 mg/dL before meals <180 mg/dL all other times of the day Specimen Anatomical Collection Method Collection Time Receive d Time (Source) Location / / Volume Laterality Blood specimen 08/07/2017 2:23 PM 018 2:23 (specimen) EST PM EST Yonathan Smith MD POINT OF CARE TEST ORDERABLE S Performing Organization Address City/State/ZIP Code Phon e Number [address] POCT Glucose (08/07/2017 12:08 PM EST) P athologist Signature POC Glucose 77 65 - 199 [facility] mg/dL [facility] Comment: Supplemental ranges: <140 mg/dL before meals <180 mg/dL all other times of the day Specimen Anatomical Collection Method Collection Time Receive d Time (Source) Location / / Volume Laterality Blood specimen 08/07/2017 12:08 8 (specimen) PM EST 12:08 PM EST Yonathan Smith MD POINT OF CARE TEST ORDERABLE S Performing Organization Address City/State/ZIP Code Phon e Number [address] (ABNORMAL) Differential, Automated (08/07/2017 7:30 AM EST) Patholo gist Method Time Signature Neutrophils % 73.8 % [facility] Neutr Abs (ANC) 7.17 (H) 1.70 - [facility] 6.10 [facility] x10(3)/[facility] LABORATORY Lymphocytes % 12.2 % [facility] Lymphocytes Abs 1.2 0.9 - 3.2 [facility] x10(3)/[facility] LABORATORY Monocytes % 9.0 % [facility] Monocyte Abs 0.9 0.3 - 0.9 [facility] x10(3)/[facility] LABORATORY Eosinophils % 3.9 % [facility] Eosinophils Abs 0.4 0.0 - 0.4 [facility] x10(3)/[facility] LABORATORY Basophils % 0.6 % [facility] Basophils Abs 0.1 0.0 - 0.1 [facility] x10(3)/[facility] LABORATORY Immature Gran % 0.50 % [facility] [...] Organization Address City/State/[place] [address] (ABNORMAL) Hemogram (08/07/2017 7:30 AM EST) Analysis Performed At Patho logist Time Signature WBC 9.7 (H) 4.0 - 9.5 [facility] x10(3)/[facility] LABORATORY RBC 3.54 (L) 4.58 - [facility] 5.54 [facility] x10(6)/[facility] LABORATORY Hemoglobin 9.9 (L) 13.7 - [facility] 16.5 gm/dL [facility] Hematocrit 32.3 (L) 40.5 - [facility] 48.5 % [facility] MCV 91.2 82.9 - [facility] 93.1 [facility] LABORATORY MCH 28.0 27.5 - [facility] 32.1 pg [facility] MCHC 30.7 (L) 32.0 - [facility] 35.7 gm/dL [facility] Platelets 312 145 - 357 [facility] x10(3)/[facility] LABORATORY RDWSD 53.2 (H) 36.0 - [facility] 45.0 [facility] LABORATORY RDWCV 16.0 (H) 11.4 - [facility] 13.8 % [facility] MPV 8.9 7.6 - 12.9 [facility] LABORATORY nRBC % Auto 0.0 % [facility] nRBC Abs Auto 0.000 0.000 - [facility] 0.000 [facility] x10(3)/[facility] LABORATORY Specimen Anatomical Collection Method Collection Time Receive d Time (Source) Location / / Volume Laterality Blood specimen 08/07/2017 7:30 AM 018 7:45 (specimen) EST AM EST Resulting Agency Comment Spec In Lab Yonathan Smith MD HEMATOLOGY ORDERABLES Performing Organization Address City/State/[place] [address] (ABNORMAL) Basic Metabolic Panel (non-fasting) (08/07/2017 7:30 AM EST) P athologist Signature Glucose Lvl 80 65 - 199 [facility] mg/dL [facility] Comment: [...] estions. Chloride 99 98 - 107 mmol/L [facility] CO2 29 22 - 31 mmol/L [facility] Anion Gap 12 5 - 15 mmol/L [facility] Calcium 8.5 8.5 - 10.5 mg/dL [facility] Estimated GFR 59 (L) >=60 [facility] Comment: The reported eGFR should be multiplied b y 1.2 for patients. The MDRD is not an appropriate measure o f renal function for patients with body mass extremes or in patients with acute kidney failure. http://Inofile/DHnkdep http://Inofile/DHMCnkf Specimen Anatomical Collection Method Collection Time Receive d Time (Source) Location / / Volume Laterality Blood specimen 08/07/2017 7:30 AM 018 7:45 (specimen) EST AM EST Resulting Agency Comment Spec In Lab Yonathan Smith MD CHEMISTRY ORDERABLES Performing Organization Address City/[facility] Phon e Number [address] POCT Glucose (08/07/2017 7:27 AM EST) athologist Signature POC Glucose 81 65 - 199 [facility] mg/dL [facility] Comment: Supplemental ranges: <140 mg/dL before meals <180 mg/dL all other times of the day Specimen Anatomical Collection Method Collection Time Receive d Time (Source) Location / / Volume Laterality Blood specimen 08/07/2017 7:27 AM 018 7:27 (specimen) EST AM EST Yonathan Smith MD POINT OF CARE TEST ORDERABLE S Performing Organization Address [facility] Phon e Number [address] APTT (08/07/2017 7:04 AM EST) athologist Signature PTT 34 25 - 35 sec [facility] [...] Smith MD HEMATOLOGY ORDERABLES Performing Organization Address City/[facility]/[place] [address] (ABNORMAL) Prothrombin Time (08/07/2017 7:04 AM EST) athologist Signature PT 17.3 (H) 11.8 - 14.0 [facility] LABORATORY INR 1.4 (H) 0.9 - 1.1 [facility] [...] Organization Address City/State/[place] [address] POCT Glucose (08/07/2017 4:03 AM EST) athologist Signature POC Glucose 93 65 - 199 [facility]/dL [facility] Comment: Supplemental ranges: <140 mg/dL before meals <180 mg/dL all other times of the day Specimen Anatomical Collection Method Collection Time Receive d Time (Source) Location / / Volume Laterality Blood specimen 08/07/2017 4:03 AM 018 4:03 (specimen) EST AM EST Yonathan Smith MD POINT OF CARE TEST ORDERABLE S Performing Organization Address City/State/[place] [address] POCT Glucose (08/07/2017 12:04 AM EST) athologist Signature POC Glucose 107 65 - 199 [facility]/dL [facility] Comment: Supplemental ranges: <140 mg/dL before meals <180 mg/dL all other times of the day Specimen Anatomical Collection Method Collection Time Receive d Time (Source) Location / / Volume Laterality Blood specimen 08/07/2017 12:04 8 (specimen) AM EST 12:04 AM EST Yonathan Smith MD POINT OF CARE TEST ORDERABLE S Performing Organization Address City/State/ZIP Code Phon e Number [address] POCT Glucose (08/06/2017 7:56 PM EST) P athologist Signature POC Glucose 178 65 - 199 [facility] mg/dL [facility] Comment: Supplemental ranges: <140 mg/dL before meals <180 mg/dL all other times of the day Specimen Anatomical Collection Method Collection Time Receive d Time (Source) Location / / Volume Laterality Blood specimen 08/06/2017 7:56 PM 018 7:56 (specimen) EST PM EST Yonathan Smith MD POINT OF CARE TEST ORDERABLE S Performing Organization Address City/State/ZIP Code Phon e Number [address] [id number] (08/06/2017 2:32 PM EST) Component Value Ref Test Analysis Performed At Patholo gist Range Method Time Signature VB Text Department: Vascular Surgery Lab VASCUBASE Report Patient: [id number] (GREGORY HOANG) CPT: [id number] ICD10: I99.8 Referring Physician: YONATHAN SMITH ?? [...] muoñz RN) 0800 (Given - Provider: Dory Truong [...] RN) 0808 (Given - Provider: Chiquis Mcgraht RN)2022 (Given - Provider: Mira Truong RN) [...] documented in this encounter Care Teams Fish Seiner Relationship Specialty Start Date End Date Lovely Vicente MD PCP - General 04/16/[address] [place] [address] [address] [place] [address] documented as of this encounter
--- OUTSIDE RECORDS SUMMARY | 2022-04-06 10:40 | XMS_ITS | Encounter Summary ---
:1945 Author Organization [facility] [place] [address] Care Team Providers Name Role Phone Lovely Vicente MD Primary Care Provider Reason for Visit Auth/Cert Specialty Diagnoses / Procedures Referred By Contact Refer red To Contact Diagnoses Critical lower limb ischemia CELLULITIS RT FOOT Procedures EMERGENCY Referral ID Status Reason Start Date Expiration Date Visits Requ ested Visits Authorized [id number] 1 1 Encounter Details Date Type Department Care Team Description 08/11/2017 Surgery Main Operating Room Yonathan Smith (M SURG) DRESSING CHANGE Barbara Ocampo MD (FOR OTHER THAN IVAN) [facility] UNDER ANES. 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 Patient [...] Pedis (Ankle) Artery ?132 ? 0.94 ??[place]-Biphasic ? Posterior Tibial (Ankle) Artery ??154 ? 1.10 ??[place]-Biphasic ? Fourth Toe ? 67 ?0.48 ?? [...] For any problems or questions please call [phone] ZELDA Smith, personal security specialist Nurse Clinician For issues on weeknights after 5pm and weekends please call [phone] and ask for the Vascular Fellow photovoltaic installation technician. General Instructions None Future Appointments and Orders Future Appointments Provider Department Dept Phone 08/26/2017 4:00 PM Aurelia Rivera PA V[facility] Surgery [facility] [place] [phone] 09/07/2017 3:00 PM LAB, THREE L Lab 3L [facility] [phone] 09/07/2017 4:00 PM Luz Prescott MD Endocrinology [facility] [place] [phone] 09/09/2017 8:00 AM Barbra Soares APRN Pain Management [facility] [place] [phone] Please bring a list of your current [...] For any problems or questions please call [phone] ZELDA Smith, personal security specialist Nurse Clinician For issues on weeknights after 5pm and weekends please call [phone] and ask for the Vascular Fellow photovoltaic installation technician. documented in this encounter Medications at Time [...] Patient Destination: [facility] [address] [place] [id number] Transportation: with (at bedside) Time of Discharge: by 12 noon Level of Care: swing Patient Aware: yes Family Notified: yes Md to call report to: Yissel Quintero CERTIFIED COATINGS INSPECTOR already called RN to call report to: [phone] Shirin Wolf Office of Care Management Pager [phone] Shirin Wagner RN - 08/16/2017 10:50 AM EST [facility] has offered pt swing bed. Pt and accept bed. will transport via car. CERTIFIED COATINGS INSPECTOR Yissel Quintero aware; d/c paperwork will be completed by 12 noon. [facility] requests pt arrival by 1400 today; CERTIFIED COATINGS INSPECTOR, RN, and family aware. CERTIFIED COATINGS INSPECTOR called [facility] and was told that they prefer pt to arrive with wound vac dressing applied but clamped. CERTIFIED COATINGS INSPECTOR applied new wound vac dressing. RN has [facility] number to call report. PASSR completed; CERTIFIED COATINGS INSPECTOR paged to request provider signature in highlighted space. Indigo from [facility] notified via email that home wound vac now cancelled; [facility] has picked up from room and order cancelled. Packet started and provided to manager community outreach. Medicare important message explained to patient, patient signed. Copy provided to patient and signature page to OCM for inclusion in pt EMR. Radha Georges - 08/16/2017 10:34 AM EST Office of Care Management/Asphalt Layer Patient Name: Gregory Hoang : 1945 Patient has been offered a swing bed at [facility]. The patient will be transported by private transportation. No MD to MD report necessary Please call Nursing Report to [phone], ask for cook larder. Info to accompany patient: Narcotic Prescriptions Copies of Medication Administration Records and IV sheets for past 10 days. Plan: Asphalt Layer will be available to the patient and Process Improvement Engineer-RN and/or Farm Service Consultant for further assistance. Patient will be discharged to: [facility] [address] [place] [address] [id number] Radha Powers, Asphalt Layer Mira Black, VAMSI - 08/15/2017 10:05 PM EST [address] Flores to ask if he wanted to hold metoprolol dose. BP 95/58. OK to hold this dose Courtney Brito - 08/15/2017 3:26 PM EST Office of Care Management(OCM)/Asphalt Layer(RS)/ D/C Planning re : Patient is medically [...] status. 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 Vac in place. Rehab referrals ongoing. Can ambulate in hallway. Change VAC at bedside today. Naty Colindres RN - 08/14/2017 1:33 PM EST Patient Name: Gregory Hoang Patient Age: 72 y.o. Birthdate: 1945 Admit date: 08/06/2017 Attending Physician: Yonathan Smith MD We want him to go to a place for intensive therapy and not at a retirement where he will be just sitting there and not getting any therapy. . Contacted by direct care RN, who said that patient and would like information about patient's referral to: [facility] PHONE: [phone] FAX: [phone] CM spoke with RS who said that [...] rehab. Await recommendations from PT. Covering pager #[phone]. Viry Starkey MD - 08/14/2017 10:08 AM EST Vascular Surgery Progress Note ID: rGegory Hoang is a 72 y.o. 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 Naphthalene Operator Helper Kaitlin Saha, RN Pager #[phone] Payam Rosales - 08/13/2017 2:37 PM EST Staff Midwife/Apprenticeship Director Encounter Note Patient Name: Gregory Hoang : [id number] MR#: [id number] Admit Date: 08/06/2017 1:41 PM Hospital Day 7 days Narrative: Visited to introduce and assess acceptance of Staff Midwife/Apprenticeship Director services. Pt was awake, alert, oriented and in chair and family was there. Assessment:Patient coping positively with stresses of illness/hospitalization at this time. Pt says that he is hoping to get better and his family was there. Pt says that he has family care and supportand taking one day at time. Intervention and Outcome: Provided emotional support and encouraging presence. 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 A letter describing our affiliations was reviewed with them and theywere educated about their right to choose where referrals are placed. Patient requests referral to [facility]. PHONE: [phone] FAX: [phone]. And Home NPWT (Negative Pressure Wound Therapy) aka wound vac device made available to pt. Serial # confirmed. Reviewed [facility] Proof of Delivery/Assignment of Benefits Statement(POD/AOB) Form w patient or authorized agent signing on behalf of patient. Copy of POD/AOB provided to pt and other copy faxed to [employer] @ fax# [phone] Expected date of discharge: 08/12/2017. 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 Address: [address] [place] [address] [place] [address] (home) Mobile: Telephone Information: Referring Provider: No [...] [facility] MAIN OR ??? PRO CABG, ARTERIAL, SINGLE N/A 07/07/2017 @CABG, USING ARTERIAL GRAFT;SINGLE ARTERIAL GRAFT (WRVU 33.75) performed by Yuan Retana MD at [facility] MAIN OR ??? PRO CABG, ARTERY-VEIN, TWO N/A 07/07/2017 @CABG, TWO VENOUS GRAFTS & ARTERIAL GRAFT (WRVU 7.93) performed by Yuan Retana MD at [facility] MAIN OR ??? PRO COLONOSCOPY, REMV LESN, SNARE 01/16/2014 COLONOSCOPY, POLYPECTOMY, REMOVAL LESION BY SNARE performed by Nohemi Jaimes MD at [facility] ENDOSCOPY ??? PRO ENDOSCOPY W/VIDEO-ASST VEIN HARVEST, CABG Right 07/07/2017 ENDOSCOPIC HARVEST VEIN(S) FOR CABG (WRVU 0.31) performed by Yuan Retana MD at [facility] MAIN OR ??? PRO THYROIDECTOMY 03/28/2013 THYROIDECTOMY, TOTAL OR COMPLETE performed by Manny Mcknight MD at [facility] MAIN OR Date/Procedure Med's given/comments 08/10/17 RLE angio with multiple MOTHER'S HELPER to R posterior tibial artery Fentanyl [...] apply another for 12 hours more. 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 Heparin gtt continues to run. [...] of : 1945 AGE 72 y.o. Address: [address] [place] [address] [place] [address] (home) Mobile: Telephone Information: Referring Provider: No [...] [facility] MAIN OR ??? PRO CABG, ARTERIAL, SINGLE N/A 07/07/2017 @CABG, USING ARTERIAL GRAFT;SINGLE ARTERIAL GRAFT (WRVU 33.75) performed by Yuan Retana MD at [facility] MAIN OR ??? PRO CABG, ARTERY-VEIN, TWO N/A 07/07/2017 @CABG, TWO VENOUS GRAFTS & ARTERIAL GRAFT (WRVU 7.93) performed by Yuan Retana MD at [facility] OR ??? PRO COLONOSCOPY, REMV LESN, SNARE 01/16/2014 COLONOSCOPY, POLYPECTOMY, REMOVAL LESION BY SNARE performed by Nohemi Jaimes MD at [facility] ENDOSCOPY ??? PRO ENDOSCOPY W/VIDEO-ASST VEIN HARVEST, CABG Right 07/07/2017 ENDOSCOPIC HARVEST VEIN(S) FOR CABG (WRVU 0.31) performed by Yuan Retana MD at [facility] MAIN OR ??? 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 Vascular resident photovoltaic installation technician and will forward result to the team prior to rounds. 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 Patient [...] [facility] MA[facility] OR ??? PRO CABG, ARTERIAL, SINGLE N/A 07/07/2017 @CABG, USING ARTERIAL GRAFT;SINGLE ARTERIAL GRAFT (WRVU 33.75) performed by Yuan Retana MD at [facility] MAIN OR ??? PRO CABG, ARTERY-VEIN, TWO N/A 07/07/2017 @CABG, TWO VENOUS GRAFTS & ARTERIAL GRAFT (WRVU 7.93) performed by Yuan Rteana MD at [facility] MAIN OR ??? PRO COLONOSCOPY, REMV LESN, SNARE 01/16/2014 COLONOSCOPY, POLYPECTOMY, REMOVAL LESION BY SNARE performed by Nohemi Jaimes MD at [facility] ENDOSCOPY ??? PRO ENDOSCOPY W/VIDEO-ASST VEIN HARVEST, CABG Right 07/07/2017 ENDOSCOPIC HARVEST VEIN(S) FOR CABG (WRVU 0.31) performed by Yuan Retana MD at [facility] MAIN OR ??? PRO THYROIDECTOMY 03/28/2013 THYROIDECTOMY, TOTAL OR COMPLETE performed by Manny Mcknight MD at [facility] MAIN OR Functional Status/Social Hx: [...] left blue toes with CTA showing R AIRLINE PILOT/FIRST OFFICER pseudoaneurysm (now thrombosed) and occluded ATs bilaterally. [...] 2.5x80 5. Completion RLE angiogram 6. L AIRLINE PILOT/FIRST OFFICER angiogram 7. 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 - L AIRLINE PILOT/FIRST OFFICER angriogram demonstrated: High femoral bifurcation over the proximal half of the femoral head. L AIRLINE PILOT/FIRST OFFICER access in the distal L AIRLINE PILOT/FIRST OFFICER. - Closure device: Mynx Technical Procedure: The [...] for a 45cm 5F Destination. V18 and [place] and QuickCross catheters were used to select [...] 5F. A stationed picture of the L AIRLINE PILOT/FIRST OFFICER was performed as the patient was noted to have a very high bifurcation. Access appeared in the distal R AIRLINE PILOT/FIRST OFFICER. Closure and sheath removal was performed with [...] PM EST 1440 report called to 5 [place] nurse Tessa AGUSTIN documented in this encounter Miscellaneous Notes Plan of Care - Dory Truong RN - 08/16/2017 10:51 AM EST Problem: Patient Care Overview Goal: Plan of Care Review Outcome: Outcome (s) achieved Date Met: 08/16/17 08/14/17 1939 08/16/17 7521 Coping/Psychosocial Plan Of Care Reviewed With -- [...] sit/sit to supine -- Bed Mobility Goal, [place] Level independent -- Bed Mobility Goal, Date [...] days -- Transfer Training Goal, Activity Type wpk-wz-qjrhh/vbudn-ih-zmu -- Transfer Train Goal, [place] Level conditional independence -- Transfer Train Goal, [...] call cabello within reach, Hourly rounding by RN/SCREEN TACKER. Bed alarm / Chair alarm. Patient-specific fall [...] - 08/15/2017 6:28 PM EST [facility] [place] Note Patient Name: Gregory Hoang : [id number] MR#: [id number] Case Date: 08/09/2017 Surgeon: Surgeon(s) and Role: [...] 2.5x80 5. Completion RLE angiogram 6. L AIRLINE PILOT/FIRST OFFICER angiogram 7. Mynx closure Precautions/Restrictions: fall, sternal [...] feet/ bed -> bathroom). Anticipated Discharge Disposition: half-way facility, other (see comments) (or swing bed) Pager: [phone] BASSAM ELIAS, PT 08/14/2017 Inpatient Physical Therapy [...] to Achieve by discharge Gait Training Goal, [place] Level conditional independence;set up required Gait Training [...] spoke with [facility] KANWAL Sandhu RN who said that they do not anticipate any beds over the weekend. Reviewed with patient/ that they need to be aware that patient will need to take the first bed offered at the facilities that they make referrals to. Their choices are: 1- [facility] PHONE: [phone] FAX: [phone] 2- [facility] [address] [place] [address] 3- [facility] [address] [place] [address] I have discussed Medicare/Private Insurance [...] RS/CM on Wednesday to follow-up. Covering pager #[phone] for today. Plan of Care - Henrique [...] with additional findings of pseudoaneurysm on R AIRLINE PILOT/FIRST OFFICER and bilateral anterior tibial artery occlusions. Was [...] an outpatient once discharged. Have patient call [phone] to set up an appointment. Follow-up: Dermatology will sign-off for now. Please do not hesitate to contact us if you have any questions orconcerns. Impression and Recommendations discussed with primary team on 08/13/2017. Karo Henderson MD Resident in Dermatology Section of Dermatology, Department of Surgery [facility] Pager [phone] Patient seen and evaluated with staff Director Of Neighborhood Service Center: Halima Cordero MD Section of Dermatology [facility] Level of Resident Supervision: Direct [...] 2.5x80 5. Completion RLE angiogram 6. L AIRLINE PILOT/FIRST OFFICER angiogram 7. Mynx closure Active Non-Hospital Problems [...] home with home health ([facility] PT[facility]OT) Pager: [phone] YASIR TELLO OT 08/12/2017 Occupational Therapy Rehabilitation [...] 2.5x80 5. Completion RLE angiogram 6. L AIRLINE PILOT/FIRST OFFICER angiogram 7. Mynx closure Past Medical History: [...] with 24/7 assistance and maximal services) Pager: [phone] NICHOLAS MORA, JESSIE 08/12/2017 Physical Therapy Rehabilitation [...] sit/sit to supine -- Bed Mobility Goal, Loup Level independent -- Bed Mobility Goal, Outcome Achieved -- goal ongoing Goal: Gait Training Goal Stand Alone Therapy Goal Outcome: Ongoing (Interventions Implemented as Appropriate) 08/11/17 1310 08/12/17 1510 Gait Training Goal Gait Training Goal, Date Established 08/11/17 -- Gait Training Goal, Time to Achieve 5 - 7 days -- Gait Training Goal, Loup Level conditional independence -- Gait Training Goal, [...] days -- Transfer Training Goal, Activity Type efs-gv-wzlyo/mraif-ic-yyv -- Transfer Train Goal, Loup Level conditional independence -- Transfer Training Goal, [...] - 08/11/2017 2:52 PM EST [facility] [place] Patient Name: Gregory Hoang : [id number] MR#: [id number] Case Date: 08/11/2017 Surgeon: Surgeon(s) and Role: [...] 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 Completion RLE angiogram 6. L AIRLINE PILOT/FIRST OFFICER angiogram 7. Mynx closure He is very [...] Anticipated Discharge Disposition: inpatient rehabilitation facility Pager: [phone] LAWRENCE GONZALEZ, PT 08/11/2017 Physical Therapy Rehabilitation [...] to sit/sit to supine Bed Mobility Goal, Loup Level independent Goal: Gait Training Goal Stand Alone Therapy Goal Outcome: Ongoing (Interventions Implemented as Appropriate) 08/11/17 1310 Gait Training Goal Gait Training Goal, Date Established 08/11/17 Gait Training Goal, Time to Achieve 5 - 7 days Gait Training Goal, Loup Level conditional independence Gait Training Goal, Assist [...] 7 days Transfer Training Goal, Activity Type tbm-mk-ufwhu/kkhzc-ki-cpt Transfer Train Goal, Loup Level conditional independence Plan of Care - [...] call cabello within reach, Hourly rounding by RN/SCREEN TACKER. Bed alarm / Chair alarm. ? Patient-specific [...] Within the Past 30 Days: [facility] [place] Anticipated Length Of Stay (If known): Expected Length of Hospitalization: 5-7 days2-3 days Current Decision-Making Capacity: Alert and oriented x 4 Advance Care Planning: on file Kisha Hoang [facility] [phone] Current Coping/Education/Information Needs: pt and spouse state [...] Health/Prescription Coverage: Primary Insurance: MEDICARE Secondary Insurance: [place] Prescription Coverage: See above Preferred Pharmacy: [email or web address] Other: N/A Primary Care Provider: Lovely Vicente MD [phone] Patient/Caregiver Goals of Treatment: Patient plans to [...] of care planning. Kaitlin Saha RN Pager: [phone] Plan of Care - Melba Jaramillo RN [...] Overview Goal: Plan of Care Review 08/08/17 9634 Coping/Psychosocial Plan Of Care Reviewed With patient [...] call cabello within reach, Hourly rounding by RN/SCREEN TACKER. Bed alarm / Chair alarm. Patient-specific fall [...] at bedside and MD TEAM Carrying pager [phone] contacted (via Radio page) and notified of [...] Cardiology Zulma Dolan MD [facility] [place], [place] 0[address] (Wo rk) 05/28/2022 Laboratory Appointment Lab 05/28/2022 Office Visit Cardiology Zulma Dolan MD [facility] [place] [address] Liz Poole PA [facility] [place] [address] 06/10/2022 Office Visit Dermatology Laura Scherer MD [facility] DR [place] [facility] [place], [place] [...] 160 65 - 199 [place] mg/dL [facility] Comment: Supplemental ranges: <140 mg/dL before meals <180 mg/dL all other times of the day Specimen Anatomical Collection Method Collection Time Receive d Time (Source) Location / / Volume Laterality Blood specimen 08/16/2017 7:28 AM 018 7:28 (specimen) EST AM EST Yonathan Smith MD POINT OF CARE TEST ORDERABLE S Performing Organization Address City/State/[place] [address] (ABNORMAL) Differential, Automated (08/16/2017 5:08 AM EST) [facility] Method Time Signature Neutrophils % 73.9 % [facility] Neutr Abs (ANC) 5.37 1.70 - [facility] 6.10 [facility] x10(3)/[facility] LABORATORY Lymphocytes % 10.1 % [facility] Lymphocytes Abs 0.7 (L) 0.9 - 3.2 [facility] x10(3)/[facility] LABORATORY Monocytes % 10.1 % [facility] Monocyte Abs 0.7 0.3 - 0.9 [facility] x10(3)/[facility] LABORATORY Eosinophils % 5.1 % [facility] Eosinophils Abs 0.4 0.0 - 0.4 [facility] x10(3)/[facility] LABORATORY Basophils % 0.4 % [facility] Basophils Abs 0.0 0.0 - 0.1 [facility] x10(3)/[facility] LABORATORY Immature Gran % 0.40 [...] Abs 0.03 0.00 - 0.04 x10(3)/[facility] Specimen Anatomical Collection Method Collection Time Receive d Time (Source) Location / / Volume Laterality Blood specimen 08/16/2017 5:08 AM 018 5:20 (specimen) EST AM EST Resulting Agency Comment Spec In Lab Yonathan Smith MD HEMATOLOGY ORDERABLES Performing Organization Address City/State/[place] [address] (ABNORMAL) Hemogram (08/16/2017 5:08 AM EST) Analysis Performed At Patho logist Time Signature WBC 7.3 4.0 - 9.5 [place] x10(3)/[facility] LABORATORY RBC 3.36 (L) 4.58 - [place] 5.54 [facility] x10(6)/[facility] LABORATORY Hemoglobin 9.7 (L) 13.7 - [facility] 16.5 gm/dL [facility] Hematocrit 30.3 (L) 40.5 - [place] 48.5 % [facility] MCV 90.2 82.9 - [facility] RYAN 93.1 [facility] LABORATORY MCH 28.9 27.5 - [place] 32.1 pg [facility] MCHC 32.0 32.0 - [place] 35.7 gm/dL [facility] Platelets 282 145 - 357 [facility] x[facility](3[facility] LABORATORY RDWSD 53.9 (H) 36.0 - [place] 45.0 [facility] LABORATORY RDWCV 16.5 (H) 11.4 - [place] 13.8 % [facility] MPV 9.0 7.6 - 12.9 [place] [facility] LABORATORY nRBC % Auto 0.0 % [facility] nRBC Abs Auto 0.000 0.000 - [place] 0.000 [facility] x10(3)/[facility] LABORATORY Specimen Anatomical Collection Method Collection Time Receive d Time (Source) Location / / Volume Laterality Blood specimen 08/16/2017 5:08 AM 018 5:20 (specimen) EST AM EST Resulting Agency Comment Spec In Lab Yonathan Smith MD HEMATOLOGY ORDERABLES Performing Organization Address City/State/ZIP Code Phon e Number [place] [id number] (ABNORMAL) Basic Metabolic Panel (non-fasting) (08/16/2017 5:08 AM EST) P athologist Signature Glucose Lvl 141 65 - 199 [facility] mg/dL [facility] Comment: Diabetes: >=200 mg/dL plus symp toms BUN 29 (H) 10 - 20 mg/dL [facility] Creatinine 1.25 0.80 - [...] 15 mmol/L [facility] Calcium 8.7 8.5 - 10.5 mg/dL [facility] Estimated GFR 57 (L) >=60 [facility] Comment: The reported eGFR should be multiplied b y 1.2 for patients. The MDRD is not an appropriate measure o f renal function for patients with body mass extremes or in patients with acute kidney failure. http://Waps.cn/DHnkdep http://Waps.cn/DHMCnkf Specimen Anatomical Collection Method Collection Time Receive d Time (Source) Location / / Volume Laterality Blood specimen 08/16/2017 5:08 AM 018 5:20 (specimen) EST AM EST Resulting Agency Comment Spec In Lab Yonathan Smith MD CHEMISTRY ORDERABLES Performing Organization Address City/State/[place] [address] (ABNORMAL) Prothrombin Time (08/16/2017 [...] Smith MD HEMATOLOGY ORDERABLES Performing Organization Address City/[facility]/ZIP Code Phon e Number [address] POCT Glucose (08/16/2017 4:09 AM EST) athologist Signature POC Glucose 147 65 - 199 [facility] Comment: Supplemental ranges: <140 mg/dL before meals <180 mg/dL all other times of the day Specimen Anatomical Collection Method Collection Time Receive d Time (Source) Location / / Volume Laterality Blood specimen 08/16/2017 4:09 AM 018 4:09 (specimen) EST AM EST Yonathan Smith MD POINT OF CARE TEST ORDERABLE S Performing Organization Address City/[facility]/ZIP Code Phon e Number [address] POCT Glucose (08/15/2017 11:56 PM EST) athologist Signature POC Glucose 176 65 - 199 [facility]dL [facility] Comment: Supplemental ranges: <140 mg/dL before meals <180 mg/dL all other times of the day Specimen Anatomical Collection Method Collection Time Receive d Time (Source) Location / / Volume Laterality Blood specimen 08/15/2017 11:56 8 (specimen) PM EST 11:56 PM EST Yonathan Smith MD POINT OF CARE TEST ORDERABLE S Performing Organization Address City/[facility]/ZIP Code Phon e Number [address] POCT Glucose (08/15/2017 8:05 PM EST) athologist Signature POC Glucose 136 65 - 199 [place] mg/dL [facility] Comment: Supplemental ranges: <140 mg/dL before meals <180 mg/dL all other times of the day Specimen Anatomical Collection Method Collection Time Receive d Time (Source) Location / / Volume Laterality Blood specimen 08/15/2017 8:05 PM 018 8:05 (specimen) EST PM EST Yonathan Smith MD POINT OF CARE TEST ORDERABLE S Performing Organization Address City/State/[place] [address] (ABNORMAL) POCT Glucose (08/15/2017 4:50 PM EST) athologist Signature POC Glucose 232 (H) 65 - 199 [facility] mg/dL [facility] Comment: Supplemental ranges: <140 mg/dL before meals <180 mg/dL all other times of the day Specimen Anatomical Collection Method Collection Time Receive d Time (Source) Location / / Volume Laterality Blood specimen 08/15/2017 4:50 PM 018 4:50 (specimen) EST PM EST Yonathan Smith MD POINT OF CARE TEST ORDERABLE S Performing Organization Address City/State/[place] [address] POCT Glucose (08/15/2017 12:04 PM EST) athologist Signature POC Glucose 135 65 - 199 [place] mg/dL [facility] Comment: Supplemental ranges: <140 mg/dL before meals <180 mg/dL all other times of the day Specimen Anatomical Collection Method Collection Time Receive d Time (Source) Location / / Volume Laterality Blood specimen 08/15/2017 12:04 8 (specimen) PM EST 12:04 PM EST Yonathan Smith MD POINT OF CARE TEST ORDERABLE S Performing Organization Address City/State/[place] [address] POCT Glucose (08/15/2017 7:36 AM EST) P athologist Signature POC Glucose 124 65 - 199 [facility] mg/dL [facility] Comment: Supplemental ranges: <140 mg/dL before meals <180 mg/dL all other times of the day Specimen Anatomical Collection Method Collection Time Receive d Time (Source) Location / / Volume Laterality Blood specimen 08/15/2017 7:36 AM 018 7:36 (specimen) EST AM EST Yonathan Smith MD POINT OF CARE TEST ORDERABLE S Performing Organization Address City/State/[place] [address] (ABNORMAL) Differential, Automated (08/15/2017 6:22 AM EST) Patholo gist Method Time Signature Neutrophils % 76.1 % [facility] Neutr Abs (ANC) 6.62 (H) 1.70 - [facility] 6.10 [facility] x10(3)/[facility] L LABORATORY Lymphocytes % 9.3 % [facility] Lymphocytes Abs 0.8 (L) 0.9 - 3.2 [facility] x10(3)/[facility] LABORATORY Monocytes % 9.4 % [facility] Monocyte Abs 0.8 0.3 - 0.9 [facility] x10(3)/[facility] LABORATORY Eosinophils % 4.0 % [facility] Eosinophils Abs 0.4 0.0 - 0.4 [facility] x10(3)/[facility] LABORATORY Basophils % 0.6 % [facility] Basophils Abs 0.0 0.0 - 0.1 [facility] x10(3)/[facility] LABORATORY Immature Gran % 0.60 % [facility] [...] Gran Abs 0.05 (H) 0.00 - 0.04 x10(3)/[facility] LABORATORY Specimen Anatomical Collection Method Collection Time Receive d Time (Source) Location / / Volume Laterality Blood specimen 08/15/2017 6:22 AM 018 6:33 (specimen) EST AM EST Resulting Agency Comment Spec In Lab Yonathan Smith MD HEMATOLOGY ORDERABLES Performing Organization Address City/State/[place] [address] (ABNORMAL) Hemogram (08/15/2017 6:22 AM EST) Analysis Performed At Patho logist Time Signature WBC 8.7 4.0 - 9.5 [facility] x10(3)/[facility] LABORATORY RBC 3.21 (L) 4.58 - [facility] 5.54 [facility] x10(6)/[facility] LABORATORY Hemoglobin 9.1 (L) 13.7 - [facility] 16.5 gm/dL [facility] Hematocrit 29.0 (L) 40.5 - [facility] 48.5 % [facility] MCV 90.3 82.9 - [facility] 93.1 [facility] LABORATORY MCH 28.3 27.5 - [facility] RYAN 32.1 pg [facility] MCHC 31.4 (L) 32.0 - [facility] 35.7 gm/dL [facility] Platelets 254 145 - 357 [facility] x10(3)/[facility] LABORATORY RDWSD 53.9 (H) 36.0 - [facility] RYAN 45.0 [facility] LABORATORY RDWCV 16.3 (H) 11.4 - [facility] RYAN 13.8 % [facility] MPV 8.8 7.6 - 12.9 [facility] LABORATORY nRBC % Auto 0.0 % [facility] nRBC Abs Auto 0.000 0.000 - [place] 0.000 [facility] x10(3)/[facility] LABORATORY Specimen Anatomical Collection Method Collection Time Receive d Time (Source) Location / / Volume Laterality Blood specimen 08/15/2017 6:22 AM 018 6:33 (specimen) EST AM EST Resulting Agency Comment Spec In Lab Yonathan Smith MD HEMATOLOGY ORDERABLES Performing Organization Address City/State/[place] [address] (ABNORMAL) Basic Metabolic Panel (non-fasting) (08/15/2017 6:22 AM EST) P athologist Signature Glucose Lvl 118 65 - 199 [facility] mg/dL [facility] Comment: Diabetes: >=200 mg/dL plus symp toms BUN 27 (H) 10 - 20 mg/dL [facility] [...] or in patients with acute kidney failure. http://[employer]eBrisk Video/DHnkdep http://[employer]eBrisk Video/DHMCnkf Specimen Anatomical Collection Method Collection Time Receive d Time (Source) Location / / Volume Laterality Blood specimen 08/15/2017 6:22 AM 018 6:33 (specimen) EST AM EST Resulting Agency Comment Spec In Lab Yonathan Smith MD CHEMISTRY ORDERABLES Performing Organization Address City/State/[place] [address] (ABNORMAL) Prothrombin Time (08/15/2017 [...] Smith MD HEMATOLOGY ORDERABLES Performing Organization Address City/[facility]/[place] [address] POCT Glucose (08/15/2017 4:33 AM EST) athologist Signature POC Glucose 164 65 - 199 [facility]/dL [facility] Comment: Supplemental ranges: <140 mg/dL before meals <180 mg/dL all other times of the day Specimen Anatomical Collection Method Collection Time Receive d Time (Source) Location / / Volume Laterality Blood specimen 08/15/2017 4:33 AM 018 4:33 (specimen) EST AM EST Yonathan Smith MD POINT OF CARE TEST ORDERABLE S Performing Organization Address City/State/[place] [address] POCT Glucose (08/15/2017 12:12 AM EST) athologist Signature POC Glucose 89 65 - 199 [facility] mg/dL [facility] Comment: Supplemental ranges: <140 mg/dL before meals <180 mg/dL all other times of the day Specimen Anatomical Collection Method Collection Time Receive d Time (Source) Location / / Volume Laterality Blood specimen 08/15/2017 12:12 8 (specimen) AM EST 12:12 AM EST Yonathan Smith MD POINT OF CARE TEST ORDERABLE S Performing Organization Address City/State/[place] [address] (ABNORMAL) POCT Glucose (08/14/2017 8:07 PM EST) athologist Signature POC Glucose 204 (H) 65 - 199 [facility] mg/dL [facility] Comment: Supplemental ranges: <140 mg/dL before meals <180 mg/dL all other times of the day Specimen Anatomical Collection Method Collection Time Receive d Time (Source) Location / / Volume Laterality Blood specimen 08/14/2017 8:07 PM 018 8:07 (specimen) EST PM EST Yonathan Smith MD POINT OF CARE TEST ORDERABLE S Performing Organization Address City/State/[place] [address] POCT Glucose (08/14/2017 5:11 PM EST) athologist Signature POC Glucose 174 65 - 199 [place] mg/dL [facility] Comment: Supplemental ranges: <140 mg/dL before meals <180 mg/dL all other times of the day Specimen Anatomical Collection Method Collection Time Receive d Time (Source) Location / / Volume Laterality Blood specimen 08/14/2017 5:11 PM 018 5:11 (specimen) EST PM EST Yonathan Smith MD POINT OF CARE TEST ORDERABLE S Performing Organization Address City/State/[place] [address] POCT Glucose (08/14/2017 12:10 PM EST) athologist Signature POC Glucose 141 65 - 199 [facility] mg/dL [facility] Comment: Supplemental ranges: <140 mg/dL before meals <180 mg/dL all other times of the day Specimen Anatomical Collection Method Collection Time Receive d Time (Source) Location / / Volume Laterality Blood specimen 08/14/2017 12:10 8 (specimen) PM EST 12:10 PM EST Yonathan Smith MD POINT OF CARE TEST ORDERABLE S Performing Organization Address City/State/[place] [address] POCT Glucose (08/14/2017 8:07 AM EST) P athologist Signature POC Glucose 158 65 - 199 [facility]/dL [facility] Comment: Supplemental ranges: <140 mg/dL before meals <180 mg/dL all other times of the day Specimen Anatomical Collection Method Collection Time Receive d Time (Source) Location / / Volume Laterality Blood specimen 08/14/2017 8:07 AM 018 8:07 (specimen) EST AM EST Yonathan Smith MD POINT OF CARE TEST ORDERABLE S Performing Organization Address City/State/[place] [address] (ABNORMAL) Differential, Automated (08/14/2017 4:52 AM EST) Patholo gist Method Time Signature Neutrophils % 78.6 % [facility] Neutr Abs (ANC) 7.70 (H) 1.70 - [facility] 6.10 [facility] x10(3)/[facility] L LABORATORY Lymphocytes % 7.8 % [facility] Lymphocytes Abs 0.8 (L) 0.9 - 3.2 [facility] x10(3)/[facility] LABORATORY Monocytes % 8.8 % [facility] Monocyte Abs 0.9 0.3 - 0.9 [facility] x10(3)/[facility] LABORATORY Eosinophils % 4.0 % [facility] Eosinophils Abs 0.4 0.0 - 0.4 [facility] x10(3)/[facility] LABORATORY Basophils % 0.5 % [facility] Basophils Abs 0.0 0.0 - 0.1 [facility] x10(3)/[facility] LABORATORY Immature Gran % 0.30 % [facility] [...] 0.00 - 0.04 x10(3)/[facility] Specimen Anatomical Collection Method Collection Time Receive d Time (Source) Location / / Volume Laterality Blood specimen 08/14/2017 4:52 AM 018 5:08 (specimen) EST AM EST Resulting Agency Comment Spec In Lab Yonathan Smith MD HEMATOLOGY ORDERABLES Performing Organization Address City/State/[place] [address] (ABNORMAL) Hemogram (08/14/2017 4:52 AM EST) Analysis Performed At Patho logist Time Signature WBC 9.8 (H) 4.0 - 9.5 [facility] x10(3)/[facility] LABORATORY RBC 3.32 (L) 4.58 - [facility] 5.[facility] x10(6)/[facility] LABORATORY Hemoglobin 9.5 (L) 13.7 - [facility] 16.5 gm/dL [facility] Hematocrit 30.3 (L) 40.5 - [facility] 48.5 % [facility] MCV 91.3 82.9 - [facility] 93.1 [facility] LABORATORY MCH 28.6 27.5 - [facility] RYAN 32.1 pg [facility] MCHC 31.4 (L) 32.0 - [facility] 35.7 gm/dL [facility] Platelets 263 145 - 357 [facility] x10(3)/[facility] LABORATORY RDWSD 54.8 (H) 36.0 - [place] 45.0 [facility] LABORATORY RDWCV 16.5 (H) 11.4 - [facility] 13.8 % [facility] MPV 9.1 7.6 - 12.9 [facility] LABORATORY nRBC % Auto 0.0 % [facility] nRBC Abs Auto 0.000 0.000 - [facility] 0.000 [facility] x10(3)/[facility] LABORATORY Specimen Anatomical Collection Method Collection Time Receive d Time (Source) Location / / Volume Laterality Blood specimen 08/14/2017 4:52 AM 018 5:08 (specimen) EST AM EST Resulting Agency Comment Spec In Lab Yonathan Smith MD HEMATOLOGY ORDERABLES Performing Organization Address City/State/[place] [address] (ABNORMAL) Prothrombin Time (08/14/2017 [...] Organization Address City/State/[place] [address] (ABNORMAL) Basic Metabolic Panel (non-fasting) (08/14/2017 4:52 AM EST) P athologist Signature Glucose Lvl 135 65 - 199 [facility] mg/dL [facility] Comment: Diabetes: >=200 mg/dL plus symp toms BUN 25 (H) 10 - 20 mg/dL [facility] Creatinine 1.36 0.80 - [...] CENTER LABORATORY Estimated GFR 52 (L) >=60 [facility] Comment: The reported eGFR should be multiplied b y 1.2 for patients. The MDRD is not an appropriate measure o f renal function for patients with body mass extremes or in patients with acute kidney failure. http://Waps.cn/DHnkdep http://Waps.cn/DHnkf Specimen Anatomical Collection Method Collection Time Receive d Time (Source) Location / / Volume Laterality Blood specimen 08/14/2017 4:52 AM 018 5:08 (specimen) EST AM EST Resulting Agency Comment Spec In Lab Yonathan Smith MD CHEMISTRY ORDERABLES Performing Organization Address City/State/[place] [address] POCT Glucose (08/14/2017 3:56 AM EST) P athologist Signature POC Glucose 135 65 - 199 [facility] mg/dL [facility] Comment: Supplemental ranges: <140 mg/dL before meals <180 mg/dL all other times of the day Specimen Anatomical Collection Method Collection Time Receive d Time (Source) Location / / Volume Laterality Blood specimen 08/14/2017 3:56 AM 018 3:56 (specimen) EST AM EST Yonathan Smith MD POINT OF CARE TEST ORDERABLE S Performing Organization Address City/State/ZIP Code Phon e Number [address] POCT Glucose (08/13/2017 11:13 PM EST) athologist Signature POC Glucose 118 65 - 199 [place] mg/dL [facility] Comment: Supplemental ranges: <140 mg/dL before meals <180 mg/dL all other times of the day Specimen Anatomical Collection Method Collection Time Receive d Time (Source) Location / / Volume Laterality Blood specimen 08/13/2017 11:13 8 (specimen) PM EST 11:13 PM EST Yonathan Smith MD POINT OF CARE TEST ORDERABLE S Performing Organization Address City/[facility]/[place] [address] (ABNORMAL) POCT Glucose (08/13/2017 8:08 PM EST) athologist Signature POC Glucose 204 (H) 65 - 199 [facility] mg/dL [facility] Comment: Supplemental ranges: <140 mg/dL before meals <180 mg/dL all other times of the day Specimen Anatomical Collection Method Collection Time Receive d Time (Source) Location / / Volume Laterality Blood specimen 08/13/2017 8:08 PM 018 8:08 (specimen) EST PM EST Yonathan Smith MD POINT OF CARE TEST ORDERABLE S Performing Organization Address City/State/[place] [address] POCT Glucose (08/13/2017 4:02 PM EST) athologist Signature POC Glucose 145 65 - 199 [place] mg/dL [facility] Comment: Supplemental ranges: <140 mg/dL before meals <180 mg/dL all other times of the day Specimen Anatomical Collection Method Collection Time Receive d Time (Source) Location / / Volume Laterality Blood specimen 08/13/2017 4:02 PM 018 4:02 (specimen) EST PM EST Yonathan Smith MD POINT OF CARE TEST ORDERABLE S Performing Organization Address City/State/[place] [address] POCT Glucose (08/13/2017 11:31 AM EST) athologist Signature POC Glucose 179 65 - 199 [facility]/dL [facility] Comment: Supplemental ranges: <140 mg/dL before meals <180 mg/dL all other times of the day Specimen Anatomical Collection Method Collection Time Receive d Time (Source) Location / / Volume Laterality Blood specimen 08/13/2017 11:31 8 (specimen) AM EST 11:31 AM EST Yonathan Smith MD POINT OF CARE TEST ORDERABLE S Performing Organization Address City/[facility]/[place] [address] (ABNORMAL) POCT Glucose (08/13/2017 10:16 AM EST) athologist Signature POC Glucose 211 (H) 65 - 199 [facility] mg/dL [facility] Comment: Supplemental ranges: <140 mg/dL before meals <180 mg/dL all other times of the day Specimen Anatomical Collection Method Collection Time Receive d Time (Source) Location / / Volume Laterality Blood specimen 08/13/2017 10:16 8 (specimen) AM EST 10:16 AM EST Yonathan Smith MD POINT OF CARE TEST ORDERABLE S Performing Organization Address City/[facility]/[place] [address] JULIAN, legs, multiple levels (08/13/2017 7:42 AM EST) Component Value Ref Test Analysis Performed At Patholo gist Range Method Time Signature VB Text Department: Vascular Surgery Lab VASCUBASE Report Patient: [id number] (GREGORY HOANG) CPT: 07578 ICD10: I99.8 Referring Physician: YONATHAN SMITH ?? Indications: s/p R 1,2,3 toe amps with red left foot, need n ew baseline Diabetes mellitus: yes ICD10 Diagnosis Code: I99.8 Findings: Right ?Pressure (mm Hg) ?? JULIAN ??Waveform ?TBI ?? Brachial Artery ?138 ? Dorsalis Pedis (Ankle) Arter y ?132 ? 0.94 ??[place]- Biphasic ? Posterior Tibial (Ankle) Art anila ??154 ? 1.10 ??[place]-Biphasic ? Fourth Toe ? 67 ? 0.48 [...] Signature POC Glucose 156 65 - 199 [facility] mg/dL [facility] Comment: Supplemental ranges: <140 mg/dL before meals <180 mg/dL all other times of the day Specimen Anatomical Collection Method Collection Time Receive d Time (Source) Location / / Volume Laterality Blood specimen 08/13/2017 7:33 AM 018 7:33 (specimen) EST AM EST Yonathan Smith MD POINT OF CARE TEST ORDERABLE S Performing Organization Address City/State/ZIP Code Phon e Number [place] [id number] (ABNORMAL) Differential, Automated (08/13/2017 5:33 AM EST) [facility] Method Time Signature Neutrophils % 77.8 % [facility] Neutr Abs (ANC) 7.83 (H) 1.70 - [facility] 6.10 [facility] x10(3)/[facility] L LABORATORY Lymphocytes % 8.4 % [facility] Lymphocytes Abs 0.8 (L) 0.9 - 3.2 [facility] x10(3)/[facility] LABORATORY Monocytes % 8.3 % [facility] Monocyte Abs 0.8 0.3 - 0.9 [facility] x10(3)/[facility] LABORATORY Eosinophils % 4.6 % [facility] Eosinophils Abs 0.5 (H) 0.0 - 0.4 [facility] x10(3)/[facility] LABORATORY Basophils % 0.5 % [facility] Basophils Abs 0.0 0.0 - 0.1 [facility] x10(3)/[facility] LABORATORY Immature Gran % 0.40 % [facility] [...] Organization Address City/State/[place] [address] (ABNORMAL) Hemogram (08/13/2017 5:33 AM EST) Analysis Performed At Patho logist Time Signature WBC 10.1 (H) 4.0 - 9.5 [facility] x10(3)/[facility] LABORATORY RBC 3.21 (L) 4.58 - [facility] 5.54 [facility] x10(6)/[facility] LABORATORY Hemoglobin 9.2 (L) 13.7 - [facility] 16.[facility] gm/dL [facility] Hematocrit 29.6 (L) 40.5 - [facility] 48.5 % [facility] MCV 92.2 82.9 - [facility] 93.1 [facility] LABORATORY MCH 28.7 27.5 - [facility] 32.[facility] pg [facility] MCHC 31.1 (L) 32.0 - [facility] 35.7 gm/dL [facility] Platelets 263 145 - 357 [facility] x10(3)/[facility] LABORATORY RDWSD 54.8 (H) 36.0 - [facility] 45.0 [facility] LABORATORY RDWCV 16.4 (H) 11.4 - [facility] 13.8 % [facility] MPV 9.2 7.6 - 12.9 [facility] LABORATORY nRBC % Auto 0.0 % [facility] nRBC Abs Auto 0.000 0.000 - [facility] 0.000 [facility] x10(3)/[facility] LABORATORY Specimen Anatomical Collection Method Collection Time Receive d Time (Source) Location / / Volume Laterality Blood specimen 08/13/2017 5:33 AM 018 6:04 (specimen) EST AM EST Resulting Agency Comment Spec In Lab Yonathan Smith MD HEMATOLOGY ORDERABLES Performing Organization Address City/State/[place] [address] (ABNORMAL) Prothrombin Time (08/13/2017 [...] Organization Address City/State/[place] [address] (ABNORMAL) Basic Metabolic Panel (non-fasting) (08/13/2017 5:33 AM EST) athologist Signature Glucose Lvl 126 65 - 199 [facility] mg/dL [facility] LABORATORY Comment: Diabetes: >=200 mg/dL plus symp toms BUN 18 10 - 20 mg/dL [facility] LABORATORY Creatinine 1.16 0.80 - [...] 15 mmol/L [facility] LABORATORY Calcium 7.9 (L) 8.5 - 10.5 mg/dL [facility] LABORATORY Estimated GFR >60 >=60 [facility] LABORATORY Comment: The reported eGFR should be multiplied b y 1.2 for patients. The MDRD is not an appropriate measure o f renal function for patients with body mass extremes or in patients with acute kidney failure. http://Waps.cn/DHnkdep http://Waps.cn/DHMCnkf Specimen Anatomical Collection Method Collection Time Receive d Time (Source) Location / / Volume Laterality Blood specimen 08/13/2017 5:33 AM 018 6:04 (specimen) EST AM EST Resulting Agency Comment Spec In Lab Yonathan Smith MD CHEMISTRY ORDERABLES Performing Organization Address City/[facility]/ZIP Code Phon e Number [address] POCT Glucose (08/13/2017 4:29 AM EST) athologist Signature POC Glucose 111 65 - 199 [facility]dL [facility] LAB[facility] Comment: Supplemental ranges: <140 mg/dL before meals <180 mg/dL all other times of the day Specimen Anatomical Collection Method Collection Time Receive d Time (Source) Location / / Volume Laterality Blood specimen 08/13/2017 4:29 AM 018 4:29 (specimen) EST AM EST Yonathan Smith MD POINT OF CARE TEST ORDERABLE S Performing Organization Address City/[facility]/ZIP Code Phon e Number [address] POCT Glucose (08/12/2017 11:28 PM EST) athologist Signature POC Glucose 164 65 - 199 [facility]/dL [facility] LABORATORY Comment: Supplemental ranges: <140 mg/dL before meals <180 mg/dL all other times of the day Specimen Anatomical Collection Method Collection Time Receive d Time (Source) Location / / Volume Laterality Blood specimen 08/12/2017 11:28 8 (specimen) PM EST 11:28 PM EST Yonathan Smith MD POINT OF CARE TEST ORDERABLE S Performing Organization Address City/[facility]/[place] [address] (ABNORMAL) POCT Glucose (08/12/2017 7:40 PM EST) athologist Signature POC Glucose 209 (H) 65 - 199 [facility] mg/dL [facility] LABORATORY Comment: Supplemental ranges: <140 mg/dL before meals <180 mg/dL all other times of the day Specimen Anatomical Collection Method Collection Time Receive d Time (Source) Location / / Volume Laterality Blood specimen 08/12/2017 7:40 PM 018 7:40 (specimen) EST PM EST Yonathan Smith MD POINT OF CARE TEST ORDERABLE S Performing Organization Address City/State/ZIP Code Phon e Number [address] POCT Glucose (08/12/2017 4:24 PM EST) athologist Signature POC Glucose 161 65 - 199 [facility] mg/dL [facility] LABOR[facility]ORY Comment: Supplemental ranges: <140 mg/dL before meals <180 mg/dL all other times of the day Specimen Anatomical Collection Method Collection Time Receive d Time (Source) Location / / Volume Laterality Blood specimen 08/12/2017 4:24 PM 018 4:24 (specimen) EST PM EST Yonathan Smith MD POINT OF CARE TEST ORDERABLE S Performing Organization Address City/State/[place] [address] POCT Glucose (08/12/2017 12:00 PM EST) athologist Signature POC Glucose 167 65 - 199 [facility] mg/dL [facility] LABOR[facility]ORY Comment: Supplemental ranges: <140 mg/dL before meals <180 mg/dL all other times of the day Specimen Anatomical Collection Method Collection Time Receive d Time (Source) Location / / Volume Laterality Blood specimen 08/12/2017 12:00 8 (specimen) PM EST 12:00 PM EST Yonathan Smith MD POINT OF CARE TEST ORDERABLE S Performing Organization Address City/State/[place] [address] POCT Glucose (08/12/2017 7:25 AM EST) P athologist Signature POC Glucose 152 65 - 199 [facility] mg/dL [facility] LABORATORY Comment: Supplemental ranges: <140 mg/dL before meals <180 mg/dL all other times of the day Specimen Anatomical Collection Method Collection Time Receive d Time (Source) Location / / Volume Laterality Blood specimen 08/12/2017 7:25 AM 018 7:25 (specimen) EST AM EST Yonathan Smith MD POINT OF CARE TEST ORDERABLE S Performing Organization Address City/State/ZIP Code Phon e Number [place] [id number] (ABNORMAL) Differential, Automated (08/12/2017 6:29 AM EST) Patholo gist Method Time Signature Neutrophils % 78.7 % [facility] LABORATORY Neutr Abs (ANC) 7.94 (H) 1.70 - [facility] 6.10 [facility] x10(3)/[facility] LABORATORY Lymphocytes % 8.8 % [facility] LABORATORY Lymphocytes Abs 0.9 0.9 - 3.2 [facility] x10(3)/[facility] LABORATORY Monocytes % 7.8 % [facility] LABORATORY Monocyte Abs 0.8 0.3 - 0.9 [facility] x10(3)/[facility] LABORATORY Eosinophils % 3.9 % [facility] LABORATORY Eosinophils Abs 0.4 0.0 - 0.4 [facility] x10(3)/[facility] LABORATORY Basophils % 0.3 % [facility] LABORATORY Basophils Abs 0.0 0.0 - 0.1 [facility] x10(3)/[facility] LABORATORY Immature Gran % 0.50 % [facility] [...] Gran Abs 0.05 (H) 0.00 - 0.04 x10(3)/[facility] LABORATORY Specimen Anatomical Collection Method Collection Time Receive d Time (Source) Location / / Volume Laterality Blood specimen 08/12/2017 6:29 AM 018 6:38 (specimen) EST AM EST Resulting Agency Comment Spec In Lab Yonathan Smith MD HEMATOLOGY ORDERABLES Performing Organization Address City/State/[place] [address] (ABNORMAL) Hemogram (08/12/2017 6:29 AM EST) Analysis Performed At Patho logist Time Signature WBC 10.1 (H) 4.0 - 9.5 [facility] x10(3)/[facility] LABORATORY RBC 3.02 (L) 4.58 - [facility] 5.54 [facility] x10(6)/[facility] LABORATORY Hemoglobin 8.7 (L) 13.7 - [facility] 16.5 gm/dL [facility] LABORATORY Hematocrit 28.1 (L) 40.5 - [facility] 48.5 % [facility] LABORATORY MCV 93.0 82.9 - [facility] 93.1 [facility] LABORATORY MCH 28.8 27.5 - [facility] 32.1 pg [facility] LABORATORY MCHC 31.0 (L) 32.0 - [facility] 35.7 gm/dL [facility] LABORATORY Platelets 223 145 - 357 [facility] x10(3)/[facility] LABORATORY RDWSD 56.1 (H) 36.0 - [facility] 45.0 [facility] LABORATORY RDWCV 16.4 (H) 11.4 - [facility] 13.8 % [facility] LABORATORY MPV 9.0 7.6 - 12.9 [facility] LABORATORY nRBC % Auto 0.0 % [facility] LABORATORY nRBC Abs Auto 0.000 0.000 - [facility] 0.000 [facility] x10(3)/[facility] LABORATORY Specimen Anatomical Collection Method Collection Time Receive d Time (Source) Location / / Volume Laterality Blood specimen 08/12/2017 6:29 AM 018 6:38 (specimen) EST AM EST Resulting Agency Comment Spec In Lab Yonathan Smith MD HEMATOLOGY ORDERABLES Performing Organization Address City/[facility]/[place] [address] (ABNORMAL) Prothrombin Time (08/12/2017 [...] Organization Address City/State/[place] [address] (ABNORMAL) Basic Metabolic Panel (non-fasting) (08/12/2017 6:29 AM EST) athologist Signature Glucose Lvl 151 65 - 199 [facility] mg/dL [facility]ORY Comment: Diabetes: >=200 mg/dL plus symp toms BUN 18 10 - 20 mg/dL [facility] LABORATORY Creatinine 1.11 0.80 - [...] 15 mmol/L [facility] LABORATORY Calcium 7.9 (L) 8.5 - 10.5 mg/dL [facility] LABORATORY Estimated GFR >60 >=60 [facility] LABORATORY Comment: The reported eGFR should be multiplied b y 1.2 for patients. The MDRD is not an appropriate measure o f renal function for patients with body mass extremes or in patients with acute kidney failure. http://Waps.cn/DHnkdep http://Waps.cn/DHMCnkf Specimen Anatomical Collection Method Collection Time Receive d Time (Source) Location / / Volume Laterality Blood specimen 08/12/2017 6:29 AM 018 6:38 (specimen) EST AM EST Resulting Agency Comment Spec In Lab Yonathan Smith MD CHEMISTRY ORDERABLES Performing Organization Address City/[facility]/[place] [address] POCT Glucose (08/12/2017 4:08 AM EST) athologist Signature POC Glucose 181 65 - 199 [facility] mg/dL [facility] Comment: Supplemental ranges: <140 mg/dL before meals <180 mg/dL all other times of the day Specimen Anatomical Collection Method Collection Time Receive d Time (Source) Location / / Volume Laterality Blood specimen 08/12/2017 4:08 AM 018 4:08 (specimen) EST AM EST Yonathan Smith MD POINT OF CARE TEST ORDERABLE S Performing Organization Address City/[facility]/[place] [address] (ABNORMAL) POCT Glucose (08/12/2017 12:17 AM EST) athologist Signature POC Glucose 221 (H) 65 - 199 [facility] mg/dL [facility] Comment: Supplemental ranges: <140 mg/dL before meals <180 mg/dL all other times of the day Specimen Anatomical Collection Method Collection Time Receive d Time (Source) Location / / Volume Laterality Blood specimen 08/12/2017 12:17 8 (specimen) AM EST 12:17 AM EST Yonathan Smith MD POINT OF CARE TEST ORDERABLE S Performing Organization Address City/[facility]/[place] [address] (ABNORMAL) POCT Glucose (08/11/2017 8:52 PM EST) athologist Signature POC Glucose 221 (H) 65 - 199 [facility] mg/dL [facility] LABORATORY Comment: Supplemental ranges: <140 mg/dL before meals <180 mg/dL all other times of the day Specimen Anatomical Collection Method Collection Time Receive d Time (Source) Location / / Volume Laterality Blood specimen 08/11/2017 8:52 PM 018 8:52 (specimen) EST PM EST Yonathan Smith MD POINT OF CARE TEST ORDERABLE S Performing Organization Address City/[facility]/[place] [address] POCT Glucose (08/11/2017 5:59 PM EST) athologist Signature POC Glucose 169 65 - 199 [facility] mg/dL [facility] LABORATORY Comment: Supplemental ranges: <140 mg/dL before meals <180 mg/dL all other times of the day Specimen Anatomical Collection Method Collection Time Receive d Time (Source) Location / / Volume Laterality Blood specimen 08/11/2017 5:59 PM 018 5:59 (specimen) EST PM EST Yonathan Smith MD POINT OF CARE TEST ORDERABLE S Performing Organization Address City/State/[place] [address] (ABNORMAL) POCT Glucose (08/11/2017 4:08 PM EST) athologist Signature POC Glucose 240 (H) 65 - 199 [facility] mg/dL [facility] LAB[facility]ORY Comment: Supplemental ranges: <140 mg/dL before meals <180 mg/dL all other times of the day Specimen Anatomical Collection Method Collection Time Receive d Time (Source) Location / / Volume Laterality Blood specimen 08/11/2017 4:08 PM 018 4:08 (specimen) EST PM EST Yonathan Smith MD POINT OF CARE TEST ORDERABLE S Performing Organization Address City/[facility]/ZIP Code Phon e Number [address] POCT Glucose (08/11/2017 12:04 PM EST) athologist Signature POC Glucose 182 65 - 199 [facility]/dL [facility]ORY Comment: Supplemental ranges: <140 mg/dL before meals <180 mg/dL all other times of the day Specimen Anatomical Collection Method Collection Time Receive d Time (Source) Location / / Volume Laterality Blood specimen 08/11/2017 12:04 8 (specimen) PM EST 12:04 PM EST Yonathan Smith MD POINT OF CARE TEST ORDERABLE S Performing Organization Address City/[facility]/ZIP Code Phon e Number [address] POCT Glucose (08/11/2017 7:31 AM EST) athologist Signature POC Glucose 156 65 - 199 [facility] mg/dL [facility] LAB[facility]ATORY Comment: Supplemental ranges: <140 mg/dL before meals <180 mg/dL all other times of the day Specimen Anatomical Collection Method Collection Time Receive d Time (Source) Location / / Volume Laterality Blood specimen 08/11/2017 7:31 AM 018 7:31 (specimen) EST AM EST Yonathan Smith MD POINT OF CARE TEST ORDERABLE S Performing Organization Address City/[facility]/ZIP Code Phon e Number [address] (ABNORMAL) Differential, Automated (08/11/2017 6:16 AM EST) [facility] Method Time Signature Neutrophils % 83.7 % [facility] LABORATORY Neutr Abs (ANC) 10.76 (H) 1.70 - [facility] 6.10 [facility] x10(3)/mc HOSPITAL L LABORATORY Lymphocytes % 6.0 % [facility] LABORATORY Lymphocytes Abs 0.8 (L) 0.9 - 3.2 [facility] x10(3)/[facility] LABORATORY Monocytes % 7.5 % [facility] LABORATORY Monocyte Abs 1.0 (H) 0.3 - 0.9 [facility] x10(3)/[facility] LABORATORY Eosinophils % 2.0 % [facility] LABORATORY Eosinophils Abs 0.3 0.0 - 0.4 [facility] x10(3)/[facility] LABORATORY Basophils % 0.3 % [facility] LABORATORY Basophils Abs 0.0 0.0 - 0.1 [facility] x10(3)/[facility] LABORATORY Immature Gran % 0.50 % [facility] [...] Organization Address City/State/[place] [address] (ABNORMAL) Hemogram (08/11/2017 6:16 AM EST) Analysis Performed At Patho logist Time Signature WBC 12.9 (H) 4.0 - 9.5 [facility] x10(3)/[facility] LABORATORY RBC 3.28 (L) 4.58 - [facility] 5.54 [facility] x10(6)/[facility] LABORATORY Hemoglobin 9.5 (L) 13.7 - [facility] 16.5 gm/dL [facility] LABORATORY Hematocrit 29.8 (L) 40.5 - [facility] 48.5 % [facility] LABORATORY MCV 90.9 82.9 - [facility] 93.1 [facility] LABORATORY MCH 29.0 27.5 - [facility] 32.1 pg [facility] LABORATORY MCHC 31.9 (L) 32.0 - [facility] 35.7 gm/dL [facility] LABORATORY Platelets 236 145 - 357 [facility] x10(3)/[facility] LABORATORY RDWSD 53.5 (H) 36.0 - [facility] 45.0 [facility] LABORATORY RDWCV 16.3 (H) 11.4 - [facility] 13.8 % [facility] LABORATORY MPV 8.8 7.6 - 12.9 [facility] LABORATORY nRBC % Auto 0.0 % [facility] LABORATORY nRBC Abs Auto 0.000 0.000 - [facility] 0.000 [facility] x10(3)/[facility] LABORATORY Specimen Anatomical Collection Method Collection Time Receive d Time (Source) Location / / Volume Laterality Blood specimen 08/11/2017 6:16 AM 018 6:24 (specimen) EST AM EST Resulting Agency Comment Spec In Lab Yonathan Smith MD HEMATOLOGY ORDERABLES Performing Organization Address City/State/[place] [address] (ABNORMAL) Prothrombin Time (08/11/2017 [...] Organization Address City/State/[place] [address] Basic Metabolic Panel (non-fasting) (08/11/2017 6:16 AM EST) P athologist Signature Glucose Lvl 139 65 - 199 [facility] mg/dL [facility] LABORATORY Comment: Diabetes: >=200 mg/dL plus symp toms BUN 12 10 - 20 mg/dL [facility] LABORATORY Creatinine 0.91 0.80 - [...] or in patients with acute kidney failure. http://[employer]Br[employer] Video/DHnkdep http://Waps.cn/DHMCnkf Specimen Anatomical Collection Method Collection Time Receive d Time (Source) Location / / Volume Laterality Blood specimen 08/11/2017 6:16 AM 018 6:24 (specimen) EST AM EST Resulting Agency Comment Spec In Lab Yonathan Smith MD CHEMISTRY ORDERABLES Performing Organization Address City/State/ZIP Code Phon e Number [address] POCT Glucose (08/11/2017 4:07 AM EST) athologist Signature POC Glucose 162 65 - 199 [facility] mg/dL [facility] LABORATORY Comment: Supplemental ranges: <140 mg/dL before meals <180 mg/dL all other times of the day Specimen Anatomical Collection Method Collection Time Receive d Time (Source) Location / / Volume Laterality Blood specimen 08/11/2017 4:07 AM 018 4:07 (specimen) EST AM EST Yonathan Smith MD POINT OF CARE TEST ORDERABLE S Performing Organization Address City/[facility]/ZIP Code Phon e Number [address] POCT Glucose (08/10/2017 11:59 PM EST) athologist Signature POC Glucose 166 65 - 199 [facility] mg/dL [facility] LABORATORY Comment: Supplemental ranges: <140 mg/dL before meals <180 mg/dL all other times of the day Specimen Anatomical Collection Method Collection Time Receive d Time (Source) Location / / Volume Laterality Blood specimen 08/10/2017 11:59 8 (specimen) PM EST 11:59 PM EST Yonathan Smith MD POINT OF CARE TEST ORDERABLE S Performing Organization Address City/State/ZIP Code Phon e Number [address] POCT Glucose (08/10/2017 8:12 PM EST) athologist Signature POC Glucose 156 65 - 199 [facility] mg/dL [facility] LABORATORY Comment: Supplemental ranges: <140 mg/dL before meals <180 mg/dL all other times of the day Specimen Anatomical Collection Method Collection Time Receive d Time (Source) Location / / Volume Laterality Blood specimen 08/10/2017 8:12 PM 018 8:12 (specimen) EST PM EST Yonathan Smith MD POINT OF CARE TEST ORDERABLE S Performing Organization Address City/State/ZIP Code Phon e Number [place] [id number]OS[address] Drive (ABNORMAL) POCT Glucose (08/10/2017 4:42 PM EST) P athologist Signature POC Glucose 211 (H) 65 - 199 [facility]/dL [facility] LABORATORY Comment: Supplemental ranges: <140 mg/dL before meals <180 mg/dL all other times of the day Specimen Anatomical Collection Method Collection Time Receive d Time (Source) Location / / Volume Laterality Blood specimen 08/10/2017 4:42 PM 018 4:42 (specimen) EST PM EST Yonathan Smith MD POINT OF CARE TEST ORDERABLE S Performing Organization Address City/State/ZIP Code Phon e Number [address] (ABNORMAL) Differential, Automated (08/10/2017 2:30 PM EST) Patholo gist Method Time Signature Neutrophils % 87.6 % [facility] LABORATORY Neutr Abs (ANC) 9.90 (H) 1.70 - [facility] 6.10 [facility] x10(3)/[facility] L LABORATORY Lymphocytes % 4.3 % [facility] LABORATORY Lymphocytes Abs 0.5 (L) 0.9 - 3.2 [facility] x10(3)/[facility] LABORATORY Monocytes % 6.0 % [facility] LABORATORY Monocyte Abs 0.7 0.3 - 0.9 [facility] x10(3)/[facility] LABORATORY Eosinophils % 1.1 % [facility] LABORATORY Eosinophils Abs 0.1 0.0 - 0.4 [facility] x10(3)/[facility] LABORATORY Basophils % 0.4 % [facility] LABORATORY Basophils Abs 0.0 0.0 - 0.1 [facility] x10(3)/[facility] LABORATORY Immature Gran % 0.60 % [facility] [...] Gran Abs 0.07 (H) 0.00 - 0.04 x10(3)/[facility] LABORATORY Specimen Anatomical Collection Method Collection Time Receive d Time (Source) Location / / Volume Laterality Blood specimen 08/10/2017 2:30 PM 018 2:48 (specimen) EST PM EST Resulting Agency Comment Spec In Lab Yonathan Smith MD HEMATOLOGY ORDERABLES Performing Organization Address City/State/[place] [address] (ABNORMAL) Hemogram (08/10/2017 2:30 PM EST) Analysis Performed At Patho logist Time Signature WBC 11.3 (H) 4.0 - 9.5 [facility] x10(3)/[facility] LABORATORY RBC 3.13 (L) 4.58 - [facility] 5.54 [facility] x10(6)/[facility] LABORATORY Hemoglobin 8.9 (L) 13.7 - [facility] 16[facility] g[facility]/dL [facility] LABORATORY Hematocrit 28.4 (L) 40.5 - [facility] 48.5 % [facility] LABORATORY MCV 90.7 82.9 - [facility] 93.1 [facility] LABORATORY MCH 28.4 27.5 - [facility] 32.1 pg [facility] LABORATORY MCHC 31.3 (L) 32.0 - [facility] 35.7 gm/dL [facility] LABORATORY Platelets 213 145 - 357 [facility] x10(3)/[facility] LABORATORY RDWSD 53.7 (H) 36.0 - [facility] 45.0 [facility] LABORATORY RDWCV 16.4 (H) 11.4 - [facility] 13.8 % [facility] LABORATORY MPV 8.9 7.6 - 12.9 [facility] LABORATORY nRBC % Auto 0.0 % [facility] LABORATORY nRBC Abs Auto 0.000 0.000 - [facility] [employer] 0.000 [facility] x10(3)/[facility] LABORATORY Specimen Anatomical Collection Method Collection Time Receive d Time (Source) Location / / Volume Laterality Blood specimen 08/10/2017 2:30 PM 018 2:48 (specimen) EST PM EST Resulting Agency Comment Spec In Lab Yonathan Smith MD HEMATOLOGY ORDERABLES Performing Organization Address City/[facility]/ZIP Code Phon e Number [address] (ABNORMAL) POCT Glucose (08/10/2017 1:50 PM EST) athologist Signature POC Glucose 243 (H) 65 - 199 [facility] mg/dL [facility] LABORATORY Comment: Supplemental ranges: <140 mg/dL before meals <180 mg/dL all other times of the day Specimen Anatomical Collection Method Collection Time Receive d Time (Source) Location / / Volume Laterality Blood specimen 08/10/2017 1:50 PM 018 1:50 (specimen) EST PM EST Yonathan Smith MD POINT OF CARE TEST ORDERABLE S Performing Organization Address City/[facility]/ZIP Code Phon e Number [address] POCT Glucose (08/10/2017 11:21 AM EST) athologist Signature POC Glucose 156 65 - 199 [facility] mg/dL [facility] LABORATORY Comment: Supplemental ranges: <140 mg/dL before meals <180 mg/dL all other times of the day Specimen Anatomical Collection Method Collection Time Receive d Time (Source) Location / / Volume Laterality Blood specimen 08/10/2017 11:21 8 (specimen) AM EST 11:21 AM EST Yonathan Smith MD POINT OF CARE TEST ORDERABLE S Performing Organization Address City/[facility] Center/ZIP Code Phon e Number [address] (ABNORMAL) Differential, Automated (08/10/2017 10:28 AM EST) [facility] Method Time Signature Neutrophils % 85.3 % [facility] LABORATORY Neutr Abs (ANC) 9.43 (H) 1.70 - [facility] 6.10 [facility] x10(3)/[facility] L LABORATORY Lymphocytes % 5.5 % [facility] LABORATORY Lymphocytes Abs 0.6 (L) 0.9 - 3.2 [facility] x10(3)/[facility] LABORATORY Monocytes % 5.9 % [facility] LABORATORY Monocyte Abs 0.6 0.3 - 0.9 [facility] x10(3)/[facility] LABORATORY Eosinophils % 2.1 % [facility] LABORATORY Eosinophils Abs 0.2 0.0 - 0.4 [facility] x10(3)/[facility] LABORATORY Basophils % 0.4 % [facility] LABORATORY Basophils Abs 0.0 0.0 - 0.1 [facility] x10(3)/[facility] LABORATORY Immature Gran % 0.80 % [facility]BS [...] Gran Abs 0.09 (H) 0.00 - 0.04 x10(3)/[facility] LABORATORY Specimen Anatomical Collection Method Collection Time Receive d Time (Source) Location / / Volume Laterality Blood specimen 08/10/2017 10:28 8 (specimen) AM EST 10:35 AM EST Resulting Agency Comment Spec In Lab Yonathan Smith MD HEMATOLOGY ORDERABLES Performing Organization Address City/State/[place] [address] (ABNORMAL) Hemogram (08/10/2017 10:28 AM EST) Analysis Performed At Patho logist Time Signature WBC 11.0 (H) 4.0 - 9.5 [facility] x10(3)/[facility] LABORATORY RBC 3.02 (L) 4.58 - [facility] 5.54 [facility] x10(6)/[facility] LABORATORY Hemoglobin 8.8 (L) 13.7 - [facility] 16.5 gm/dL [facility] LABORATORY Hematocrit 28.1 (L) 40.5 - [place] DAVIS 48.5 % [facility] LABORATORY MCV 93.0 82.9 - [place] DAV[place] 93.1 [facility] LABORATORY MCH 29.1 27.5 - [place]A OLIVASCK 32.1 pg [facility] LABORATORY MCHC 31.3 (L) 32.0 - [place] DAVIS 35.7 gm/dL [facility] LABORATORY Platelets 207 145 - 357 [place]A ZHAORYAN x10(3)/[facility] LABORATORY RDWSD 55.3 (H) 36.0 - [place] DAVIS 45.0 [facility] LABORATORY RDWCV 16.4 (H) 11.4 - [place] RYAN 13.8 % [facility] LABORATORY MPV 9.0 7.6 - 12.9 [facility] LABORATORY nRBC % Auto 0.0 % [facility] nRBC Abs Auto 0.000 0.000 - [place] DAVIS 0.000 [facility] x10(3)/[facility] LABORATORY Specimen Anatomical Collection Method Collection Time Receive d Time (Source) Location / / Volume Laterality Blood specimen 08/10/2017 10:28 8 (specimen) AM EST 10:35 AM EST Resulting Agency Comment Spec In Lab Yonathan Smith MD HEMATOLOGY ORDERABLES Performing Organization Address City/State/[place] [address] VS Angiogram/intervention (vascular) (08/10/2017 [...] 2.5x80 5. Completion RLE angiogram 6. L AIRLINE PILOT/FIRST OFFICER angiogram 7. 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 L AIRLINE PILOT/FIRST OFFICER access in the distal L AIRLINE PILOT/FIRST OFFICER. - Closure device: Mynx Technical Procedure: ?The [...] for a 45cm 5F Destination. V18 and [place] a nd QuickCross catheters were used to [...] bifurcation. Access appeared in the distal R AIRLINE PILOT/FIRST OFFICER. Closure and sheath removal was performed with [...] 2.5x80 5. Completion RLE angiogram 6. L AIRLINE PILOT/FIRST OFFICER angiogram 7. 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 L AIRLINE PILOT/FIRST OFFICER access in the distal L AIRLINE PILOT/FIRST OFFICER. - Closure device: Mynx Technical Procedure: The [...] for a 45cm 5F Destination. V18 and [place] a nd QuickCross catheters were used to [...] bifurcation. Access appeared in the distal R AIRLINE PILOT/FIRST OFFICER. Closure and sheath removal was performed with [...] (ABNORMAL) Differential, Automated (08/10/2017 5:50 AM EST) [facility] Method Time Signature Neutrophils % 80.1 % [facility] LABORATORY Neutr Abs (ANC) 9.01 (H) 1.70 - [facility] 6.10 [facility] x10(3)/[facility] LABORATORY Lymphocytes % 8.8 % [facility] LABORATORY Lymphocytes Abs 1.0 0.9 - 3.2 [facility] x10(3)/[facility] LABORATORY Monocytes % 8.3 % [facility] LABORATORY Monocyte Abs 0.9 0.3 - 0.9 [facility] x10(3)/[facility] LABORATORY Eosinophils % 2.0 % [facility] LABORATORY Eosinophils Abs 0.2 0.0 - 0.4 [facility] x10(3)/[facility] LABORATORY Basophils % 0.4 % [facility] LABORATORY Basophils Abs 0.0 0.0 - 0.1 [facility] x10(3)/[facility] LABORATORY Immature Gran % 0.40 % [facility] [...] Gran Abs 0.05 (H) 0.00 - 0.04 x10(3)/[facility] LABORATORY Specimen Anatomical Collection Method Collection Time Receive d Time (Source) Location / / Volume Laterality Blood specimen 08/10/2017 5:50 AM 018 5:59 (specimen) EST AM EST Resulting Agency Comment Spec In Lab Yonathan Smith MD HEMATOLOGY ORDERABLES Performing Organization Address City/State/[place] [address] (ABNORMAL) Hemogram (08/10/2017 5:50 AM EST) Analysis Performed At Patho logist Time Signature WBC 11.3 (H) 4.0 - 9.5 [facility] x10(3)/[facility] LABORATORY RBC 3.15 (L) 4.58 - [place]BAR[place] RYAN 5.54 [facility] x10(6)/[facility] LABORATORY Hemoglobin 8.9 (L) 13.7 - [facility] 16.5 gm/dL [facility] LABORATORY Hematocrit 29.0 (L) 40.5 - [facility] RYAN 48.5 % [facility] LABORATORY MCV 92.1 82.9 - [facility] RYAN 93.1 [facility] LABORATORY MCH 28.3 27.5 - [facility] RYAN 32.1 pg [facility] LABORATORY MCHC 30.7 (L) 32.0 - [facility] RYAN 35.7 gm/dL [facility] LABORATORY Platelets 231 145 - 357 [facility] x[facility](3[facility] RDWSD 53.9 (H) 36.0 - [facility] RYAN 45.0 [facility] LABORATORY RDWCV 16.2 (H) 11.4 - [facility] RYAN 13.8 % [facility] LABORATORY MPV 8.7 7.6 - 12.9 [facility] LABORATORY nRBC % Auto 0.0 % [facility] LABORATORY nRBC Abs Auto 0.000 0.000 - [facility] 0.000 [facility] x10(3)/[facility] LABORATORY Specimen Anatomical Collection Method Collection Time Receive d Time (Source) Location / / Volume Laterality Blood specimen 08/10/2017 5:50 AM 018 5:59 (specimen) EST AM EST Resulting Agency Comment Spec In Lab Yonathan Smith MD HEMATOLOGY ORDERABLES Performing Organization Address City/State/[place] [address] (ABNORMAL) Basic Metabolic Panel (non-fasting) (08/10/2017 5:50 AM EST) P athologist Signature Glucose Lvl 135 65 - 199 [facility] mg/dL [facility] LABORATORY Comment: Diabetes: >=200 mg/dL plus symp toms BUN 17 10 - 20 mg/dL [facility] LABORATORY Creatinine 1.05 0.80 - [...] or in patients with acute kidney failure. http://[employer].eBrisk Video/DHnkdep http://[employer].eBrisk Video/DHMCnkf Specimen Anatomical Collection Method Collection Time Receive d Time (Source) Location / / Volume Laterality Blood specimen 08/10/2017 5:50 AM 018 5:59 (specimen) EST AM EST Resulting Agency Comment Spec In Lab Yonathan Smith MD CHEMISTRY ORDERABLES Performing Organization Address [facility] [place] [address] (ABNORMAL) Prothrombin Time (08/10/2017 [...] Smith MD HEMATOLOGY ORDERABLES Performing Organization Address City/[facility] [place] [address] (ABNORMAL) POCT Glucose (08/10/2017 4:01 AM EST) athologist Signature POC Glucose 206 (H) 65 - 199 [facility] mg/dL [facility] LABORATORY Comment: Supplemental ranges: <140 mg/dL before meals <180 mg/dL all other times of the day Specimen Anatomical Collection Method Collection Time Receive d Time (Source) Location / / Volume Laterality Blood specimen 08/10/2017 4:01 AM 018 4:01 (specimen) EST AM EST Yonathan Smith MD POINT OF CARE TEST ORDERABLE S Performing Organization Address City/State/ZIP Code Phon e Number [address] POCT Glucose (08/10/2017 2:01 AM EST) athologist Signature POC Glucose 188 65 - 199 BARBARA ZHAORYAN mg/dL [facility] LABORATORY Comment: Supplemental ranges: <140 mg/dL before meals <180 mg/dL all other times of the day Specimen Anatomical Collection Method Collection Time Receive d Time (Source) Location / / Volume Laterality Blood specimen 08/10/2017 2:01 AM 018 2:01 (specimen) EST AM EST Ynoathan Smith MD POINT OF CARE TEST ORDERABLE S Performing Organization Address City/[facility]/[place] [address] (ABNORMAL) POCT Glucose (08/09/2017 11:42 PM EST) athologist Signature POC Glucose 283 (H) 65 - 199 BAR[place]A ZHAORYAN mg/dL [facility] LABORATORY Comment: Supplemental ranges: <140 mg/dL before meals <180 mg/dL all other times of the day Specimen Anatomical Collection Method Collection Time Receive d Time (Source) Location / / Volume Laterality Blood specimen 08/09/2017 11:42 8 (specimen) PM EST 11:42 PM EST Yonathan Smith MD POINT OF CARE TEST ORDERABLE S Performing Organization Address City/State/[place] [address] POCT Glucose (08/09/2017 8:55 PM EST) athologist Signature POC Glucose 182 65 - 199 BARBARA ZHAORYAN mg/dL [facility] LABORATORY Comment: Supplemental ranges: <140 mg/dL before meals <180 mg/dL all other times of the day Specimen Anatomical Collection Method Collection Time Receive d Time (Source) Location / / Volume Laterality Blood specimen 08/09/2017 8:55 PM 018 8:55 (specimen) EST PM EST Yonathan Smith MD POINT OF CARE TEST ORDERABLE S Performing Organization Address City/[facility]/[place] [address] (ABNORMAL) APTT (08/09/2017 6:42 PM EST) athologist Signature PTT 90 (H) 25 - 35 sec [facility] LABORATORY Comment: The recommended therapeutic range for fu ll dose, unfractionated heparin at [facility] is 80 ? 114 seconds. The use [...] Smith MD HEMATOLOGY ORDERABLES Performing Organization Address City/[facility]/[place] [address] POCT Glucose (08/09/2017 4:41 PM EST) athologist Signature POC Glucose 195 65 - 199 [facility] mg/dL [facility] LABORATORY Comment: Supplemental ranges: <140 mg/dL before meals <180 mg/dL all other times of the day Specimen Anatomical Collection Method Collection Time Receive d Time (Source) Location / / Volume Laterality Blood specimen 08/09/2017 4:41 PM 018 4:41 (specimen) EST PM EST Yonathan Smith MD POINT OF CARE TEST ORDERABLE S Performing Organization Address City/[facility]/[place] [address] POCT Glucose (08/09/2017 12:29 PM EST) athologist Signature POC Glucose 140 65 - 199 [facility] mg/dL [facility] LABORATORY Comment: Supplemental ranges: <140 mg/dL before meals <180 mg/dL all other times of the day Specimen Anatomical Collection Method Collection Time Receive d Time (Source) Location / / Volume Laterality Blood specimen 08/09/2017 12:29 8 (specimen) PM EST 12:29 PM EST Yonathan Smith MD POINT OF CARE TEST ORDERABLE S Performing Organization Address [facility]/ZIP Code Phon e Number [address] POCT Glucose (08/09/2017 9:59 AM EST) P athologist Signature POC Glucose 135 65 - 199 [facility] mg/dL [facility] LABORATORY Comment: Supplemental ranges: <140 mg/dL before meals <180 mg/dL all other times of the day Specimen Anatomical Collection Method Collection Time Receive d Time (Source) Location / / Volume Laterality Blood specimen 08/09/2017 9:59 AM 018 9:59 (specimen) EST AM EST Yonathan Smith MD POINT OF CARE TEST ORDERABLE S Performing Organization Address [facility]/ZIP Code Phon e Number [address] Specimen to Pathology (08/09/2017 8:41 AM EST) Specimen Anatomical Collection Method Collection Time Receive d Time (Source) Location / / Volume Laterality AP Specimen 08/09/2017 8:41 AM 8 8:41 EST AM EST Narrative [facility] LABORAT ORY - 08/09/2017 8:41 AM EST Specimen requisition ordered. ??Separate Pathology report to follow Yonathan Smith MD PATHOLOGY/CYTOLOGY ORDERABLE S Performing Organization Address City/[facility]/[place] [address] Surgical Pathology Report (08/09/2017 8:40 AM EST) Component Value Ref Test Analysis Performed At Patholo gist Range Method Time Signature Surgical [id number] ? Location: [facility]; [facility]; A [facility] Report The signing [...] Flower Verified: ??08/13/2017 ?Pathologist Performed at: ??-[facility] Dept. of Pathology, [place], [place] CLINICAL INFORMATION Specimen Submitted: A - [...] Organization Address City/State/[place] [address] Anaerobic Culture (08/09/2017 8:30 AM EST) [facility] CureLauncher Method Time Signature Anaerobic No anaerobic [facility] Culture organisms [facility] LABORATORY Specimen Anatomical Collection Method Collection Time Receive d Time (Source) Location / / Volume Laterality Specimen from STRUCTURE OF RIGHT 08/09/2017 8:30 AM 9:10 abscess FOOT / Unknown EST AM EST (specimen) Comment: SWAB RIGHT GREAT TOE ABSCESS FO R AEROBIC AND ANAEROBIC CULTURES. Resulting Agency Comment Spec In Lab Yonathan Smith MD MICROBIOLOGY - GENERAL ORDER [place] Performing Organization Address City/[facility]/[place] [address] (ABNORMAL) Abscess/Wound Aspirate Culture (08/09/2017 8:30 AM EST) [facility] Method Time Signature Abscess/Wound Moderate mixed [facility] Aspirate bacterial [place] Culture morphotypes [facility] normal LABORATORY cutaneous leroy (A) Gram Stain Rare White Blood Cells [place] Few Gram Positive Cocci in pairs [place] () [facility] LABORATORY Organism Gram Positive [place] Cocci in pairs [place] () [facility] LABORATORY Specimen Anatomical Collection Method Collection Time Receive d Time (Source) Location / / Volume Laterality Specimen from STRUCTURE OF RIGHT 08/09/2017 8:30 AM 9:10 abscess FOOT / Unknown EST AM EST (specimen) Comment: SWAB RIGHT GREAT TOE ABSCESS FO R AEROBIC AND ANAEROBIC CULTURES. Resulting Agency Comment Spec In Lab Yonathan Smith MD MICROBIOLOGY - GENERAL ORDER [place] Performing Organization Address City/[facility]/ZIP Code Phon e Number [place] [id number]OS[address] POCT Glucose (08/09/2017 4:28 AM EST) P athologist Signature POC Glucose 128 65 - 199 [facility] mg/dL [facility] LABORATORY Comment: Supplemental ranges: <140 mg/dL before meals <180 mg/dL all other times of the day Specimen Anatomical Collection Method Collection Time Receive d Time (Source) Location / / Volume Laterality Blood specimen 08/09/2017 4:28 AM 018 4:28 (specimen) EST AM EST Yonathan Smith MD POINT OF CARE TEST ORDERABLE S Performing Organization Address City/State/[place] [address] ABORH Recheck Status (08/09/2017 1:10 AM EST) [facility] Method Time Signature ABORH Type Completed [facility] LABORATORY Specimen Anatomical Collection Method Collection Time Receive d Time (Source) Location / / Volume Laterality Blood specimen 08/09/2017 1:10 AM 018 1:35 (specimen) EST AM EST Resulting Agency Comment Spec In Lab Yonathan Smith MD BLOOD BANK ORDERABLES Performing Organization Address City/[facility]/[place] [address] Antibody screen (08/09/2017 1:10 AM EST) [facility] Method Time Signature Ab Screen Negative [facility] LABORATORY Expires at 08/12/2017 [facility] [id number] on: [facility] LABORATORY Specimen Anatomical Collection Method Collection Time Receive d Time (Source) Location / / Volume Laterality Blood specimen 08/09/2017 1:10 AM 018 1:35 (specimen) EST AM EST Resulting Agency Comment Spec In Lab Yonathan Smith MD BLOOD BANK ORDERABLES Performing Organization Address City/[facility]/[place] [address] ABO/Rh Typing (08/09/2017 1:10 [...] [facility]/[place] [address] (ABNORMAL) APTT (08/09/2017 1:10 AM EST) P athologist Signature PTT 86 (H) 25 - 35 sec [facility] LABORATORY Comment: The recommended therapeutic range for fu ll dose, unfractionated heparin at [facility] is 80 ? 114 seconds. The use [...] Organization Address City/State/[place] [address] (ABNORMAL) Differential, Automated (08/09/2017 1:10 AM EST) [facility] gist Method Time Signature Neutrophils % 76.2 % [facility] LABORATORY Neutr Abs (ANC) 8.59 (H) 1.70 - [facility] 6.10 [facility] x10(3)/[facility] LABORATORY Lymphocytes % 11.0 % [facility] LABORATORY Lymphocytes Abs 1.2 0.9 - 3.2 [facility] x10(3)/[facility] LABORATORY Monocytes % 8.4 % [facility] LABORATORY Monocyte Abs 1.0 (H) 0.3 - 0.9 [facility] x10(3)/[facility] LABORATORY Eosinophils % 3.5 % [facility] LABORATORY Eosinophils Abs 0.4 0.0 - 0.4 [facility] x10(3)/[facility] LABORATORY Basophils % 0.5 % [facility] LABORATORY Basophils Abs 0.1 0.0 - 0.1 [facility] x10(3)/[facility] LABORATORY Immature Gran % 0.40 % [facility]BS [...] Gran Abs 0.05 (H) 0.00 - 0.04 x10(3)/[facility] LABORATORY Specimen Anatomical Collection Method Collection Time Receive d Time (Source) Location / / Volume Laterality Blood specimen 08/09/2017 1:10 AM 018 1:19 (specimen) EST AM EST Resulting Agency Comment Spec In Lab Yonathan Smith MD HEMATOLOGY ORDERABLES Performing Organization Address City/State/[place] [address] (ABNORMAL) Hemogram (08/09/2017 1:10 AM EST) Analysis Performed At Patho logist Time Signature WBC 11.3 (H) 4.0 - 9.5 [facility] x10(3)/[facility] LABORATORY RBC 3.47 (L) 4.58 - [facility] 5.54 [facility] x10(6)/[facility] LABORATORY Hemoglobin 10.0 (L) 13.7 - [facility] 16.5 gm/dL [facility] LABORATORY Hematocrit 31.9 (L) 40.5 - [facility] 48.5 % [facility] LABORATORY MCV 91.9 82.9 - [facility] 93.1 [facility] LABORATORY MCH 28.8 27.5 - [facility] RYAN 32.1 pg [facility] LABORATORY MCHC 31.3 (L) 32.0 - [facility] 35.7 gm/dL [facility] LABORATORY Platelets 234 145 - 357 [facility] x10(3)/[facility] LABORATORY RDWSD 54.0 (H) 36.0 - [facility] RYAN 45.0 [facility] LABORATORY RDWCV 16.2 (H) 11.4 - [facility] 13.8 % [facility] LABORATORY MPV 8.7 7.6 - 12.9 [facility] LABORATORY nRBC % Auto 0.0 % [facility] LABORATORY nRBC Abs Auto 0.000 0.000 - [place] RYAN 0.000 [facility] x10(3)/[facility] LABORATORY Specimen Anatomical Collection Method Collection Time Receive d Time (Source) Location / / Volume Laterality Blood specimen 08/09/2017 1:10 AM 018 1:19 (specimen) EST AM EST Resulting Agency Comment Spec In Lab Yonathan Smith MD HEMATOLOGY ORDERABLES Performing Organization Address [facility] [place] [address] (ABNORMAL) Prothrombin Time (08/09/2017 [...] Smith MD HEMATOLOGY ORDERABLES Performing Organization Address [facility] [place] [address] (ABNORMAL) Basic Metabolic Panel (non-fasting) (08/09/2017 1:10 AM EST) athologist Signature Glucose Lvl 108 65 - 199 [facility] mg/dL [facility] LABORATORY Comment: Diabetes: >=200 mg/dL plus symp toms BUN 34 (H) 10 - 20 mg/dL [facility] LABORATORY Creatinine 1.54 (H) 0.80 [...] CENTER LABORATORY Estimated GFR 45 (L) >=60 [facility] LABORATORY Comment: The reported eGFR should be multiplied b y 1.2 for patients. The MDRD is not an appropriate measure o f renal function for patients with body mass extremes or in patients with acute kidney failure. http://[employer]/DHnkdep http://[employer]/DHMCnkf Specimen Anatomical Collection Method Collection Time Receive d Time (Source) Location / / Volume Laterality Blood specimen 08/09/2017 1:10 AM 018 1:19 (specimen) EST AM EST Resulting Agency Comment Spec In Lab Yonathan Smith MD CHEMISTRY ORDERABLES Performing Organization Address City/State/ZIP Code Phon e Number [address] POCT Glucose (08/09/2017 12:05 AM EST) athologist Signature POC Glucose 128 65 - 199 [facility] mg/dL [facility] LABORATORY Comment: Supplemental ranges: <140 mg/dL before meals <180 mg/dL all other times of the day Specimen Anatomical Collection Method Collection Time Receive d Time (Source) Location / / Volume Laterality Blood specimen 08/09/2017 12:05 8 (specimen) AM EST 12:05 AM EST Yonathan Smith MD POINT OF CARE TEST ORDERABLE S Performing Organization Address City/State/[place] [address] (ABNORMAL) POCT Glucose (08/08/2017 7:36 PM EST) athologist Signature POC Glucose 215 (H) 65 - 199 [facility]dL [facility] Comment: Supplemental ranges: <140 mg/dL before meals <180 mg/dL all other times of the day Specimen Anatomical Collection Method Collection Time Receive d Time (Source) Location / / Volume Laterality Blood specimen 08/08/2017 7:36 PM 018 7:36 (specimen) EST PM EST Yonathan Smith MD POINT OF CARE TEST ORDERABLE S Performing Organization Address City/[facility]/[place] [address] (ABNORMAL) POCT Glucose (08/08/2017 6:23 PM EST) athologist Signature POC Glucose 216 (H) 65 - 199 [facility] mg/dL [facility] Comment: Supplemental ranges: <140 mg/dL before meals <180 mg/dL all other times of the day Specimen Anatomical Collection Method Collection Time Receive d Time (Source) Location / / Volume Laterality Blood specimen 08/08/2017 6:23 PM 018 6:23 (specimen) EST PM EST Yonatahn Smith MD POINT OF CARE TEST ORDERABLE S Performing Organization Address City/[facility]/[place] [address] (ABNORMAL) APTT (08/08/2017 6:00 PM EST) athologist Signature PTT 97 (H) 25 - 35 sec [facility] Comment: The recommended therapeutic range for fu ll dose, unfractionated heparin [place] [facility] is 80 ? 114 seconds. The use [...] Smith MD HEMATOLOGY ORDERABLES Performing Organization Address City/[facility]/ZIP Code Phon e Number [facility] [place] [address] POCT Glucose (08/08/2017 4:42 PM EST) athologist Signature POC Glucose 78 65 - 199 [facility]dL [facility] Comment: Supplemental ranges: <140 mg/dL before meals <180 mg/dL all other times of the day Specimen Anatomical Collection Method Collection Time Receive d Time (Source) Location / / Volume Laterality Blood specimen 08/08/2017 4:42 PM 018 4:42 (specimen) EST PM EST Yonathan Smith MD POINT OF CARE TEST ORDERABLE S Performing Organization Address City/State/[place] [address] (ABNORMAL) POCT Glucose (08/08/2017 4:01 PM EST) athologist Signature POC Glucose 58 (L) 65 - 199 [facility] mg/dL [facility] Comment: Supplemental ranges: <140 mg/dL before meals <180 mg/dL all other times of the day Specimen Anatomical Collection Method Collection Time Receive d Time (Source) Location / / Volume Laterality Blood specimen 08/08/2017 4:01 PM 018 4:01 (specimen) EST PM EST Yonathan Smith MD POINT OF CARE TEST ORDERABLE S Performing Organization Address City/State/[place] [address] POCT Glucose (08/08/2017 11:51 AM EST) athologist Signature POC Glucose 90 65 - 199 [facility] mg/dL [facility] Comment: Supplemental ranges: <140 mg/dL before meals <180 mg/dL all other times of the day Specimen Anatomical Collection Method Collection Time Receive d Time (Source) Location / / Volume Laterality Blood specimen 08/08/2017 11:51 8 (specimen) AM EST 11:51 AM EST Yonathan Smith MD POINT OF CARE TEST ORDERABLE S Performing Organization Address City/State/[place] [address] (ABNORMAL) APTT (08/08/2017 10:27 AM EST) athologist Signature PTT 64 (H) 25 - 35 sec [facility] Comment: The recommended therapeutic range for fu ll dose, unfractionated heparin [place] [facility] is 80 ? 114 seconds. The use [...] Smith MD HEMATOLOGY ORDERABLES Performing Organization Address City/[facility]/ZIP Code Phon e Number [address] POCT Glucose (08/08/2017 8:02 AM EST) athologist Signature POC Glucose 178 65 - 199 [facility] mg/dL [facility] Comment: Supplemental ranges: <140 mg/dL before meals <180 mg/dL all other times of the day Specimen Anatomical Collection Method Collection Time Receive d Time (Source) Location / / Volume Laterality Blood specimen 08/08/2017 8:02 AM 018 8:02 (specimen) EST AM EST Yonathan Smith MD POINT OF CARE TEST ORDERABLE S Performing Organization Address City/[facility]/[place] [address] (ABNORMAL) APTT (08/08/2017 4:51 AM EST) athologist Signature PTT >160 25 - 35 [facility] (Critical) sec [facility] Comment: Called by: HOWARD, Read back by: Melba Jaramillo, Date/Time:08/08/17 05:43. The recommended therapeutic range for fu ll dose, unfractionated heparin at [facility] is 80 ? 114 seconds. The use [...] Organization Address City/State/[place] [address] (ABNORMAL) Differential, Automated (08/08/2017 4:51 AM EST) [facility] gist Method Time Signature Neutrophils % 77.9 % [facility] Neutr Abs (ANC) 8.17 (H) 1.70 - [facility] 6.10 [facility] x10(3)/[facility] LABORATORY Lymphocytes % 10.3 % [facility] Lymphocytes Abs 1.1 0.9 - 3.2 [facility] x10(3)/[facility] LABORATORY Monocytes % 7.0 % [facility] Monocyte Abs 0.7 0.3 - 0.9 [facility] x10(3)/[facility] LABORATORY Eosinophils % 3.6 % [facility] Eosinophils Abs 0.4 0.0 - 0.4 [facility] x10(3)/[facility] LABORATORY Basophils % 0.5 % [facility] Basophils Abs 0.0 0.0 - 0.1 [facility] x10(3)/[facility] LABORATORY Immature Gran % 0.70 % [facility] [...] Gran Abs 0.07 (H) 0.00 - 0.04 x10(3)/[facility] LABORATORY Specimen Anatomical Collection Method Collection Time Receive d Time (Source) Location / / Volume Laterality Blood specimen 08/08/2017 4:51 AM 01/14/2 018 5:14 (specimen) EST AM EST Resulting Agency Comment Spec In Lab Yonathan Smith MD HEMATOLOGY ORDERABLES Performing Organization Address City/State/ZIP Code Phon e Number [address] (ABNORMAL) Hemogram (08/08/2017 4:51 AM EST) Analysis Performed At Patho logist Time Signature WBC 10.5 (H) 4.0 - 9.5 [facility] x10(3)/[facility] LABORATORY RBC 3.27 (L) 4.58 - [place] 5.54 [facility] x10(6)/[facility] LABORATORY Hemoglobin 9.3 (L) 13.7 - [facility] 16.5 gm/dL [facility] Hematocrit 30.3 (L) 40.5 - [facility] 48.5 % [facility] MCV 92.7 82.9 - [facility] 93.1 [facility] LABORATORY MCH 28.4 27.5 - [place] 32.1 pg [facility] MCHC 30.7 (L) 32.0 - [place] [facility] 35.7 gm/dL [facility] Platelets 252 145 - 357 [facility] x10(3)/[facility] LABORATORY RDWSD 54.6 (H) 36.0 - [place] 45.0 [facility] LABORATORY RDWCV 16.2 (H) 11.4 - [facility] RYAN 13.8 % [facility] LABORATORY MPV 9.1 7.6 - 12.9 [facility] LABORATORY nRBC % Auto 0.0 % [facility] nRBC Abs Auto 0.000 0.000 - [place] 0.000 [facility] x10(3)/[facility] LABORATORY Specimen Anatomical Collection Method Collection Time Receive d Time (Source) Location / / Volume Laterality Blood specimen 08/08/2017 4:51 AM 018 5:14 (specimen) EST AM EST Resulting Agency Comment Spec In Lab Yonathan Smith MD HEMATOLOGY ORDERABLES Performing Organization Address City/State/[place] [address] (ABNORMAL) Prothrombin Time (08/08/2017 [...] Organization Address City/State/[place] [address] (ABNORMAL) Basic Metabolic Panel (non-fasting) (08/08/2017 4:51 AM EST) athologist Signature Glucose Lvl 229 (H) 65 - 199 [facility] mg/dL [facility] Comment: Diabetes: >=200 mg/dL plus symp toms BUN 35 (H) 10 - 20 mg/dL [facility] LABORATORY Creatinine 1.57 (H) 0.80 [...] 15 mmol/L [facility] LABORATORY Calcium 7.9 (L) 8.5 - 10.5 mg/dL [facility] LABORATORY Estimated GFR 44 (L) >=60 [facility]ORY Comment: The reported eGFR should be multiplied b y 1.2 for patients. The MDRD is not an appropriate measure o f renal function for patients with body mass extremes or in patients with acute kidney failure. http://Waps.cn/DHnkdep http://Waps.cn/DHMCnkf Specimen Anatomical Collection Method Collection Time Receive d Time (Source) Location / / Volume Laterality Blood specimen 08/08/2017 4:51 AM 018 5:14 (specimen) EST AM EST Resulting Agency Comment Spec In Lab Yonathan Smith MD CHEMISTRY ORDERABLES Performing Organization Address City/[facility]/ZIP Code Phon e Number [address] POCT Glucose (08/08/2017 4:20 AM EST) athologist Signature POC Glucose 193 65 - 199 [facility] Comment: Supplemental ranges: <140 mg/dL before meals <180 mg/dL all other times of the day Specimen Anatomical Collection Method Collection Time Receive d Time (Source) Location / / Volume Laterality Blood specimen 08/08/2017 4:20 AM 018 4:20 (specimen) EST AM EST Yonathan Smith MD POINT OF CARE TEST ORDERABLE S Performing Organization Address City/[facility]/ZIP Code Phon e Number [address] POCT Glucose (08/07/2017 11:11 PM EST) athologist Signature POC Glucose 124 65 - 199 [facility] mg/dL [facility] Comment: Supplemental ranges: <140 mg/dL before meals <180 mg/dL all other times of the day Specimen Anatomical Collection Method Collection Time Receive d Time (Source) Location / / Volume Laterality Blood specimen 08/07/2017 11:11 8 (specimen) PM EST 11:11 PM EST Yonathan Smith MD POINT OF CARE TEST ORDERABLE S Performing Organization Address City/[facility]/[place] [address] (ABNORMAL) APTT (08/07/2017 10:18 PM EST) athologist Signature PTT 114 (H) 25 - 35 sec [facility] Comment: The recommended therapeutic range for fu ll dose, unfractionated heparin at [facility] is 80 ? 114 seconds. The use [...] Organization Address City/State/[place] [address] POCT Glucose (08/07/2017 8:10 PM EST) athologist Signature POC Glucose 140 65 - 199 [facility] mg/dL [facility] Comment: Supplemental ranges: <140 mg/dL before meals <180 mg/dL all other times of the day Specimen Anatomical Collection Method Collection Time Receive d Time (Source) Location / / Volume Laterality Blood specimen 08/07/2017 8:10 PM 018 8:10 (specimen) EST PM EST Yonathan Smith MD POINT OF CARE TEST ORDERABLE S Performing Organization Address City/State/[place] [address] POCT Glucose (08/07/2017 5:27 PM EST) athologist Signature POC Glucose 187 65 - 199 [facility] mg/dL [facility] Comment: Supplemental ranges: <140 mg/dL before meals <180 mg/dL all other times of the day Specimen Anatomical Collection Method Collection Time Receive d Time (Source) Location / / Volume Laterality Blood specimen 08/07/2017 5:27 PM 018 5:27 (specimen) EST PM EST Yonathan Smith MD POINT OF CARE TEST ORDERABLE S Performing Organization Address City/[facility]/[place] [address] POCT Glucose (08/07/2017 3:29 PM EST) athologist Signature POC Glucose 86 65 - 199 [facility] mg/dL [facility] Comment: Supplemental ranges: <140 mg/dL before meals <180 mg/dL all other times of the day Specimen Anatomical Collection Method Collection Time Receive d Time (Source) Location / / Volume Laterality Blood specimen 08/07/2017 3:29 PM 018 3:29 (specimen) EST PM EST Yonathan Smith MD POINT OF CARE TEST ORDERABLE S Performing Organization Address [facility] [place] [address] (ABNORMAL) APTT (08/07/2017 2:50 PM EST) athologist [facility] PTT 60 (H) 25 - 35 sec [facility] Comment: The recommended therapeutic range for fu ll dose, unfractionated heparin at [facility] is 80 ? 114 seconds. The use [...] Smith MD HEMATOLOGY ORDERABLES Performing Organization Address City/[facility]/ZIP [facility] [place] [address] (ABNORMAL) POCT Glucose (08/07/2017 2:23 PM EST) athologist Signature POC Glucose 55 (L) 65 - 199 [place] mg/dL [facility] Comment: Supplemental ranges: <140 mg/dL before meals <180 mg/dL all other times of the day Specimen Anatomical Collection Method Collection Time Receive d Time (Source) Location / / Volume Laterality Blood specimen 08/07/2017 2:23 PM 018 2:23 (specimen) EST PM EST Yonathan Smith MD POINT OF CARE TEST ORDERABLE S Performing Organization Address City/State/ZIP Code Phon e Number [address] POCT Glucose (08/07/2017 12:08 PM EST) P athologist Signature POC Glucose 77 65 - 199 [facility] mg/dL [facility] Comment: Supplemental ranges: <140 mg/dL before meals <180 mg/dL all other times of the day Specimen Anatomical Collection Method Collection Time Receive d Time (Source) Location / / Volume Laterality Blood specimen 08/07/2017 12:08 8 (specimen) PM EST 12:08 PM EST Yonathan Smith MD POINT OF CARE TEST ORDERABLE S Performing Organization Address City/State/[place] [address] (ABNORMAL) Differential, Automated (08/07/2017 7:30 AM EST) Patholo gist Method Time Signature Neutrophils % 73.8 % [facility]ORY Neutr Abs (ANC) 7.17 (H) 1.70 - [facility] 6.10 [facility] x10(3)/[facility] L LABORATORY Lymphocytes % 12.2 % [facility]ORY Lymphocytes Abs 1.2 0.9 - 3.2 [facility] x10(3)/[facility] LABORATORY Monocytes % 9.0 % [facility]ORY Monocyte Abs 0.9 0.3 - 0.9 [facility] x10(3)/[facility] LABORATORY Eosinophils % 3.9 % [facility] Eosinophils Abs 0.4 0.0 - 0.4 [facility] x10(3)/[facility] LABORATORY Basophils % 0.6 % [facility]ORY Basophils Abs 0.1 0.0 - 0.1 [facility] x10(3)/[facility] LABORATORY Immature Gran % 0.50 % [facility] [...] Gran Abs 0.05 (H) 0.00 - 0.04 x10(3)/[facility] LABORATORY Specimen Anatomical Collection Method Collection Time Receive d Time (Source) Location / / Volume Laterality Blood specimen 08/07/2017 7:30 AM 018 7:45 (specimen) EST AM EST Resulting Agency Comment Spec In Lab Yonathan Smith MD HEMATOLOGY ORDERABLES Performing Organization Address City/State/ZIP Code Phon e Number [place] [id number] (ABNORMAL) Hemogram (08/07/2017 7:30 AM EST) Analysis Performed At Patho logist Time Signature WBC 9.7 (H) 4.0 - 9.5 [facility] x10(3)/[facility] LABORATORY RBC 3.54 (L) 4.58 - [facility] 5.54 [facility] x10(6)/[facility] LABORATORY Hemoglobin 9.9 (L) 13.7 - [facility] 16.5 gm/dL [facility] LABORATORY Hematocrit 32.3 (L) 40.5 - [facility] 48.5 % [facility] LABORATORY MCV 91.2 82.9 - [facility] 93.1 [facility] LABORATORY MCH 28.0 27.5 - [facility] 32.1 pg [facility] LABORATORY MCHC 30.7 (L) 32.0 - [facility] 35.7 gm/dL [facility] Platelets 312 145 - 357 [facility] x10(3)/[facility] LABORATORY RDWSD 53.2 (H) 36.0 - [facility] RDWCV 16.0 (H) 11.4 - [facility] 13.8 % [facility] LABORATORY MPV 8.9 7.6 - 12.9 [facility] LABORATORY nRBC % Auto 0.0 % [facility] LABORATORY nRBC Abs Auto 0.000 0.000 - [facility] 0.000 [facility] x10(3)/[facility] LABORATORY Specimen Anatomical Collection Method Collection Time Receive d Time (Source) Location / / Volume Laterality Blood specimen 08/07/2017 7:30 AM 018 7:45 (specimen) EST AM EST Resulting Agency Comment Spec In Lab Yonathan Smith MD HEMATOLOGY ORDERABLES Performing Organization Address City/State/[place] [address] (ABNORMAL) Basic Metabolic Panel (non-fasting) (08/07/2017 7:30 AM EST) athologist Signature Glucose Lvl 80 65 - 199 [facility] mg/dL [facility] Comment: Diabetes: >=200 mg/dL plus symp toms BUN 31 (H) 10 - 20 mg/dL [facility] LABORATORY Creatinine 1.22 0.80 - [...] CENTER LABORATORY Estimated GFR 59 (L) >=60 [facility] LABORATORY Comment: The reported eGFR should be multiplied b y 1.2 for patients. The MDRD is not an appropriate measure o f renal function for patients with body mass extremes or in patients with acute kidney failure. http://Waps.cn/DHnkdep http://Waps.cn/[facility] Specimen Anatomical Collection Method Collection Time Receive d Time (Source) Location / / Volume Laterality Blood specimen 08/07/2017 7:30 AM 018 7:45 (specimen) EST AM EST Resulting Agency Comment Spec In Lab Yonathan Smith MD CHEMISTRY ORDERABLES Performing Organization Address City/[facility]/ZIP [facility] Phon e Number [address] POCT Glucose (08/07/2017 7:27 AM EST) athologist Signature POC Glucose 81 65 - 199 [facility] mg/dL [facility] Comment: Supplemental ranges: <140 mg/dL before meals <180 mg/dL all other times of the day Specimen Anatomical Collection Method Collection Time Receive d Time (Source) Location / / Volume Laterality Blood specimen 08/07/2017 7:27 AM 018 7:27 (specimen) EST AM EST Yonathan Smith MD POINT OF CARE TEST ORDERABLE S Performing Organization Address City/[facility] Phon e Number [address] APTT (08/07/2017 7:04 AM EST) athologist Signature PTT 34 25 - 35 sec [facility] Comment: The recommended therapeutic range for fu ll dose, unfractionated heparin at [facility] is 80 ? 114 seconds. The use [...] Organization Address City/State/[place] [address] (ABNORMAL) Prothrombin Time (08/07/2017 [...] Organization Address City/State/[place] [address] POCT Glucose (08/07/2017 4:03 AM EST) athologist Signature POC Glucose 93 65 - 199 [facility]/dL [facility] Comment: Supplemental ranges: <140 mg/dL before meals <180 mg/dL all other times of the day Specimen Anatomical Collection Method Collection Time Receive d Time (Source) Location / / Volume Laterality Blood specimen 08/07/2017 4:03 AM 018 4:03 (specimen) EST AM EST Yonathan Smith MD POINT OF CARE TEST ORDERABLE S Performing Organization Address City/State/[place] [address] POCT Glucose (08/07/2017 12:04 AM EST) athologist Signature POC Glucose 107 65 - 199 [facility] mg/dL [facility] Comment: Supplemental ranges: <140 mg/dL before meals <180 mg/dL all other times of the day Specimen Anatomical Collection Method Collection Time Receive d Time (Source) Location / / Volume Laterality Blood specimen 08/07/2017 12:04 8 (specimen) AM EST 12:04 AM EST Yonathan Smith MD POINT OF CARE TEST ORDERABLE S Performing Organization Address City/[facility]/ZIP Code Phon e Number [address] POCT Glucose (08/06/2017 7:56 PM EST) P athologist Signature POC Glucose 178 65 - 199 [facility] mg/dL [facility] Comment: Supplemental ranges: <140 mg/dL before meals <180 mg/dL all other times of the day Specimen Anatomical Collection Method Collection Time Receive d Time (Source) Location / / Volume Laterality Blood specimen 08/06/2017 7:56 PM 018 7:56 (specimen) EST PM EST Yonathan Smith MD POINT OF CARE TEST ORDERABLE S Performing Organization Address City/State/ZIP Code Phon e Number [address] [id number] (08/06/2017 2:32 PM EST) Component Value Ref Test Analysis Performed At Patholo gist Range Method Time Signature VB Text Department: Vascular Surgery Lab VASCUBASE Report Patient: [id number] (GREGORY HOANG) CPT: 8531108 ICD10: I99.8 Referring Physician: YONATHAN SMITH ?? [...] Marks RN) 0900 (Patch Removed - Provider: oDry Truong, VAMSI) Transdermal, EVERY 24 HOURS, First [...] Ok to hold) 0800 (Given - Provider: Droy Truong RN) 25 mg, Oral, 2 TIMES [...]
Routine documented in this encounter Care Teams Street Light Inspector Relationship Specialty Start Date End Date Lovely Vicente MD PCP - General 04/16/[address] [place] [address] [address] [place] [address] documented as of this encounter
--- OUTSIDE RECORDS SUMMARY | 2022-04-06 10:40 | XMS_ITS | Encounter Summary ---
:1945 Author Organization [facility] [place] [address] Care Team Providers Name Role Phone Lovely Vicente MD Primary Care Provider Encounter Details Date Type Department Care Team Description 08/09/2017 Clinical Support Same Day at [facility] Canceled (D-SCHED ERROR [facility] / CORRECT ION ) [place] [address] Social History Tobacco Use Types Packs/Day [...] Description 05/28/2022 Appointment Cardiology Zulma Dolan MD [facility] er [address] [place], [place] [address] (Wo rk) 05/28/2022 Laboratory Appointment Lab 05/28/2022 Office Visit Cardiology Zulma Dolan MD [facility] [place] [address] Liz Poole PA [facility] [place] [address] 06/10/2022 Office Visit Dermatology Laura Scherer MD [facility] DR TE[address] GR[address]MAT [place], [place] [address] (Wo rk) documented as of this encounter Procedures Procedure Name Priority Date/Time Associated Diagnosis Comme nts VACUUM WORKER 08/09/2017 12:00 AM Resul ts for this SCAN EST procedure are i n the results section. documented in this encounter Results SCAN DOC: VACUUM WORKER (08/09/2017 12:00 AM EST) Narrative 08/09/2017 12:00 AM EST This result has an attachment that is no t available. Ordered by an unspecified provider. Scanning Provider MEDIA MGR SCAN EXT ORDR/RSLT documented in this encounter Visit Diagnoses Not on filedocumented in this encounter Care Teams Slope Hoist Operator Relationship Specialty Start Date End Date Lovely Vicente MD PCP - General 04/16/[address] [place] [address] documented as of this encounter
--- OUTSIDE RECORDS SUMMARY | 2022-04-06 10:41 | XMS_ITS | Encounter Summary ---
:1945 [place] [address] Care Team Providers Name Role Phone Lovely Vicente MD Primary Care Provider Encounter Details Date Type Department Care Team Description 08/04/2017 Notes Only Cardiac Surgery Makayla Wilson PROFILER [facility] [place] [address] CARDIAC SURGERY [phone] [place], [place] [address] (Wo rk) Social History Tobacco [...] Dolan MD [facility] [address] [place], [place] [address] (Wo rk) 05/28/2022 Laboratory Appointment Lab 05/28/2022 Office Visit Cardiology Zulma Dolan MD [facility] [place] [address] Liz Poole PA [facility] [place] [address] 06/10/2022 Office Visit Dermatology Laura Scherer MD [facility] [address] TE[address]MAT [facility] [place], [place] [address] (Wo rk) documented as of this encounter Visit Diagnoses Not on filedocumented in this encounter Care Teams Bulk Loader Relationship Specialty Start Date End Date Lovely Vicente MD PCP - General 04/16/[address] [place] [address] documented as of this encounter
--- OUTSIDE RECORDS SUMMARY | 2022-04-06 10:41 | XMS_ITS | Encounter Summary ---
:1945 Author Organization [facility] [place] [address] Care Team Providers Name Role Phone Lovely Vicente MD Primary Care Provider Reason for Visit Reason Comments Foot Ulcer WOUND CHECK Auth/Cert Specialty Diagnoses / Procedures Referred By Contact Refer red To Contact Diagnoses Critical lower limb ischemia CELLULITIS RT FOOT Procedures EMERGENCY Referral ID Status Reason Start Date Expiration Date Visits Requ ested Visits Authorized [id number] 1 1 Encounter Details Date Type Department Care Team Description 08/06/2017 [facility] [place] [facility] [address] [place], [place] VASCULAR SURGERY [id number] [place] [address] [phone] Social History Tobacco Use Types Packs/Day Years [...] Smith MD - 08/06/2017 1:00 PM EST [facility] staff: 1. RIGHT leg CLI Interval [...] Dolan MD [facility] [address] [place], [place] [address] (Wo ) 05/28/2022 Laboratory Appointment Lab 05/28/2022 Office Visit Cardiology Zulma Dolan MD [facility] [place] [address] Liz Poole PA [facility] [place] [address] 06/10/2022 Office Visit Dermatology Laura Scherer MD [facility] ER DR [address]MAT [place], [place] [address] (Wo rk) documented as of this encounter Visit Diagnoses Diagnosis Critical lower limb ischemia Unspecified circulatory system disorder documented in this encounter Care Teams Electrical Maintenance Technician Relationship Specialty Start Date End Date Lovely Vicente MD PCP - General 04/16/[address] [place], [place] [address] documented as of this encounter
--- OUTSIDE RECORDS SUMMARY | 2022-04-06 10:41 | XMS_ITS | Encounter Summary ---
:1945 Author Organization [facility] [place] [address] Care Team Providers Name Role Phone Lovely Vicente MD Primary Care Provider Encounter Details Date Type Department Care Team Description 08/03/2017 Telephone Pain Management at [facility] [place], [place] [address] Social History Tobacco Use Types Packs/Day [...] Management Center Preauthorization Request Patient: Don Fatima [id number] Fax received from [facility] requesting we obtain prior authorization for Lidocaine Patches prescribed by Barbra Soares APRN. RX insurance plan: [facility] telephone: [phone] Patient ?? Diagnosis: right foot pain secondary to PVD and ischemia ?? Previous medications attempted: Tylenol, Tramadol, Dilaudid Authorization/Reference number: [id number], PBP Code 801 _x_ denied, provider and patient informed _x_ appeal initiated by provider, patient informed Angeles Rodrigez, RN documented in this encounter Plan of Treatment Upcoming Encounters Date Type Specialty Care Team Description 05/28/2022 Appointment Cardiology Zulma Dolan MD [facility] [place], [place] [address] (Wo rk) 05/28/2022 Laboratory Appointment Lab 05/28/2022 Office Visit Cardiology Zulma Dolan MD [facility] [place] [address] Liz Poole PA [facility] [place] [address] 06/10/2022 Office Visit Dermatology Laura Scherer MD [facility] [address]MAT [place], [place] [address] (Wo rk) documented as of this encounter Visit Diagnoses Not on filedocumented in this encounter Care Teams Infusion Nurse Relationship Specialty Start Date End Date Lovely Vicente MD PCP - General 04/16/[address] [place] [address] documented as of this encounter
--- OUTSIDE RECORDS SUMMARY | 2022-04-06 10:41 | XMS_ITS | Encounter Summary ---
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 [...] SETUP performed by Manny Mcknight MD at [facility] MAIN OR ??? PRO CABG, ARTERIAL, SINGLE N/A 07/07/2017 @CABG, USING ARTERIAL GRAFT;SINGLE ARTERIAL GRAFT (WRVU 33.75) performed by Yuan Retana MD at [facility] MAIN OR ??? PRO CABG, ARTERY-VEIN, TWO N/A 07/07/2017 @CABG, TWO VENOUS GRAFTS & ARTERIAL GRAFT (WRVU 7.93) performed by Yuan Retana MD at [facility] MAIN OR ??? PRO COLONOSCOPY, REMFlash MOCK, SNARE 01/16/2014 COLONOSCOPY, POLYPECTOMY, REMOVAL LESION BY SNARE performed by Nohemi Jaimes MD at [facility] ENDOSCOPY ??? PRO ENDOSCOPY W/VIDEO-ASST VEIN HARVEST, CABG Right 07/07/2017 ENDOSCOPIC HARVEST VEIN(S) FOR CABG (WRVU 0.31) performed by Yuan Retana MD at [facility] MAIN OR ??? 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 Hank Zhang Vascular Surgery, PGY2 Pager #[phone] Associated attestation - Arik Clement MD - [...] Cardiology Zulma Dolan MD [facility] [place], [place] [address] (Wo rk) 05/28/2022 Laboratory Appointment Lab 05/28/2022 Office Visit Cardiology [place]ul[place] [address] Liz Poole PA [facility] [place] [address] 06/10/2022 Office Visit Dermatology Laura Scherer MD [facility] DR [address]DERMAT [place], [place] [address] (Wo rk) documented as of [...] Department: Vascular Surgery Lab VASCUBASE Report Patient: [id number] (GREGORY FATIMA) CPT: 14051 ICD10: I82.541 Referring Physician: TAMIKO JIMÉNEZ ?? [...] [address] [facility] mg/dL [facility] LABORATORY Comment: Supplemental ranges: <140 mg/dL before meals <180 mg/dL all other times of the day Specimen Anatomical Collection Method Collection Time Receive d Time (Source) Location / / Volume Laterality Blood specimen 07/29/2017 2:28 PM 018 2:28 (specimen) EST PM EST Tamiko Jiménez MD POINT OF CARE TEST ORDERABLE S Performing Organization Address City/State/ZIP Code Phon e Number [address] (ABNORMAL) D-Dimer, Quantitative (07/29/2017 2:15 PM EST) [facility] [employer] Method Time Signature D-Dimer, Quant 1,699 (H) 0 - 500 [facility] FEU ng/ml [facility] LABORATORY Comment: The D-Dimer assay is [...] Organization Address City/State/ZIP [place] [address] (ABNORMAL) Differential, Automated (07/29/2017 2:15 PM EST) [facility] [employer] Method Time Signature Neutrophils % 82.5 % [facility] LABORATORY Neutr Abs (ANC) 10.21 (H) 1.70 - [facility] 6.10 [facility] x10(3)/[facility] L LABORATORY Lymphocytes % 7.1 % [facility] LABORATORY Lymphocytes Abs 0.9 0.9 - 3.2 [facility] x10(3)/[facility] LABORATORY Monocytes % 6.5 % [facility] LABORATORY Monocyte Abs 0.8 0.3 - 0.9 [facility] x10(3)/[facility] LABORATORY Eosinophils % 2.7 % [facility] LABORATORY Eosinophils Abs 0.3 0.0 - 0.4 [facility] x10(3)/[facility] LABORATORY Basophils % 0.6 % [facility] LABORATORY Basophils Abs 0.1 0.0 - 0.1 [facility] x10(3)/[facility] LABORATORY Immature Gran % 0.60 % [...] Abs 0.08 (H) 0.00 - 0.04 x10(3)/[facility] LABORATORY Specimen Anatomical Collection Method Collection Time Receive d Time (Source) Location / / Volume Laterality Blood specimen 07/29/2017 2:15 PM 018 2:36 (specimen) EST PM EST Resulting Agency Comment Spec In Lab Tamiko Jiménez MD HEMATOLOGY ORDERABLES Performing Organization Address City/State/ZIP [place] [address] (ABNORMAL) Hemogram (07/29/2017 2:15 PM EST) Analysis Performed At Patho logist Time Signature WBC 12.4 (H) 4.0 - 9.5 [facility] x10(3)/[facility] LABORATORY RBC 4.17 (L) 4.58 - [facility] 5.54 [facility] x10(6)/[facility] LABORATORY Hemoglobin 12.1 (L) 13.7 - [facility] 16.5 gm/dL [facility] LABORATORY Hematocrit 38.1 (L) 40.5 - [facility] 48.5 % [facility] LABORATORY MCV 91.4 82.9 - [facility] 93.1 [facility] LABORATORY MCH 29.0 27.5 - [facility] 32.1 pg [facility] LABORATORY MCHC 31.8 (L) 32.0 - [facility] RYAN 35.7 gm/dL [facility] LABORATORY Platelets 204 145 - 357 [facility] x10(3)/[facility] LABORATORY RDWSD 50.5 (H) 36.0 - [facility] 45.0 [facility] LABORATORY RDWCV 15.3 (H) 11.4 - [facility] RYAN 13.8 % [facility] LABORATORY MPV 9.4 7.6 - 12.9 [facility] LABORATORY nRBC % Auto 0.0 % [facility] LABORATORY nRBC Abs Auto 0.000 0.000 - [facility] 0.000 [facility] x10(3)/[facility] LABORATORY Specimen Anatomical Collection Method Collection Time Receive d Time (Source) Location / / Volume Laterality Blood specimen 07/29/2017 2:15 PM 018 2:36 (specimen) EST PM EST Resulting Agency Comment Spec In Lab Tamiko Jiménez MD HEMATOLOGY ORDERABLES Performing Organization Address City/State/ZIP [place] [address] (ABNORMAL) Prothrombin Time (07/29/2017 2:15 PM EST) P athologist Signature PT 24.4 (H) 11.8 - 14.0 [facility] LABORATORY INR 2.2 (H) 0.9 - 1.1 [facility] City/State/ZIP Code Phon e Number [place] [id number] HOSPITAL LABORATORY Drive Arterial Duplex Leg, Unil (07/29/2017 11:50 AM EST) Component Value Ref Test Analysis Performed At [facility] Range Method Time Signature VB Text Department: Vascular Surgery Lab VASCUBASE Report Patient: [id number] (GREGORY FATIMA) CPT: 28141 ICD10: Z09;I97.610 Referring Physician: TAMIKO JIMÉNEZ ?? [...] Department: Vascular Surgery Lab VASCUBASE Report Patient: [id number] (GREGORY FATIMA) CPT: 43233 ICD10: I82.441 Referring Physician: TAMIKO JIMÉNEZ ?? [...] he calf. Notification: Marquis Pathak MD (pager #[phone]) was notif ied of the preliminary findings. [...] STAT documented in this encounter Care Teams Turret Press Operator Relationship Specialty Start Date End Date Lovely Vicente MD PCP - General 04/16/[address] [place] [address] [address] [place] [address] documented as of this encounter
--- OUTSIDE RECORDS SUMMARY | 2022-04-06 10:41 | XMS_ITS | Encounter Summary ---
:1945 Author Organization [facility] [place] [address] Care Team Providers Name Role Phone Lovely Vicente MD Primary Care Provider Encounter Details Date Type Department Care Team Description 07/29/2017 Transcribe Orders Laboratory Lovely Vicente MD [address] [address] [place] [address] [phone] (Wo rk) Social History Tobacco Use Types [...] MD [facility] er Dr [place] [address] (Wo rk) 05/28/2022 Laboratory Appointment Lab 05/28/2022 Office Visit Cardiology Zulma Dolan MD [facility] [place] [address] Liz Poole PA [facility] [place] [address] 06/10/2022 Office Visit Dermatology Laura Scherer MD [facility] ER DR TEJA GR[address] [place], [place] [address] (Wo rk) documented as of this encounter Visit Diagnoses Not on filedocumented in this encounter Care Teams Performance Consultant Relationship Specialty Start Date End Date Lovely Vicente MD PCP - General 04/16/[address] [place] [address] documented as of this encounter
--- OUTSIDE RECORDS SUMMARY | 2022-04-06 10:41 | XMS_ITS | Encounter Summary ---
:1945 [place] [address] Care Team Providers Name Role Phone Lovely Vicente MD Primary Care Provider Encounter Details Date Type Department Care Team Description 07/29/2017 Telephone Pain Aurelia Crawford MD [facility] [place] [address] PAIN CLINIC [phone] [place], [place] [address] (Wo rk) Social History Tobacco [...] Dolan MD [facility] [address] [place], [place] [address] (Wo rk) 05/28/2022 Laboratory Appointment Lab 05/28/2022 Office Visit Cardiology Zulma Dolan MD [facility] [place] [address] Liz Poole PA [facility] [place] [address] 06/10/2022 Office Visit Dermatology Laura Scherer MD [facility] DR [address] [place], [place] [address] (Wo rk) documented as of this encounter Visit Diagnoses Not on filedocumented in this encounter Care Teams Circulation Man Relationship Specialty Start Date End Date Lovely Vicente MD PCP - General 04/16/[address] [place] [address] [address] [place] [address] documented as of this encounter
--- OUTSIDE RECORDS SUMMARY | 2022-04-06 10:41 | XMS_ITS | Encounter Summary ---
:1945 Author Organization [facility] [place] [address] Care Team Providers Name Role Phone Lovely Vicente MD Primary Care Provider Encounter Details Date Type Department Care Team Description 08/04/2017 Orders Only Cardiac Surgery Makayla Wilson APRN [facility] [place] [address] CARDIAC SURGERY [phone] [place], [place] [address] (Wo rk) Social History [...] MD [facility] er [place], [place] [address] (Wo rk) 05/28/2022 Laboratory Appointment Lab 05/28/2022 Office Visit Cardiology Zulma Dolan MD [facility] [place] [address] Liz Poole PA [facility] [place] [address] 06/10/2022 Office Visit Dermatology Laura Scherer MD [facility] ER DR TEJA GR[address]MAT [place], [place] [address] (Wo rk) documented as of this encounter Visit Diagnoses Not on filedocumented in this encounter Care Teams Dry House Wheeler Relationship Specialty Start Date End Date Lovely Vicente MD PCP - General 04/16/[address] [place] [address] documented as of this encounter
--- OUTSIDE RECORDS SUMMARY | 2022-04-06 10:41 | XMS_ITS | Encounter Summary ---
:1945 Author Organization [facility] [place] [address] Care Team Providers Name Role Phone Lovely Vicente MD Primary Care Provider Reason for Visit Reason Comments Deep Vein Thrombosis Auth/Cert Specialty Diagnoses / Procedures Referred By Contact Refer red To Contact Diagnoses Critical lower limb ischemia CELLULITIS RT FOOT Procedures EMERGENCY Referral ID Status Reason Start Date Expiration Date Visits Requ ested Visits Authorized [id number] 1 1 Encounter Details Date Type Department Care Team Description 08/04/2017 Office Visit Vascular Surgery at [facility] itical lower limb [facility] ischemia [facility] [address] [place], [place] VASCULAR SURGERY [id number] [place] [address] [phone] Social History Tobacco Use Types Packs/Day Years [...] was discharged on Coumadin. ??He presented to [facility] on 07/20 with mottled toes on the [...] Zulma Dolan MD [facility] [place] [address] (Wo rk) 05/28/2022 Laboratory Appointment Lab 05/28/2022 Office Visit Cardiology Zulma Dolan MD [facility] [place] [address] Liz Poole PA [facility] [place] [address] 06/10/2022 Office Visit Dermatology Laura Scherer MD [facility] ER DR TEJA GR[address]MAT [place], [place] [address] (Wo rk) documented as of this encounter Visit Diagnoses Diagnosis Critical lower limb ischemia Unspecified circulatory system disorder documented in this encounter Care Teams Casino Operations Supervisor Relationship Specialty Start Date End Date Lovely Vicente MD PCP - General 04/16/[address] [employer] [address] [place], [place] [address] documented as of this encounter
--- OUTSIDE RECORDS SUMMARY | 2022-04-06 10:41 | XMS_ITS | Encounter Summary ---
:1945 Author Organization [facility] [place] [address] Care Team Providers Name Role Phone Lovely Vicente MD Primary Care Provider Reason for Visit Auth/Cert Specialty Diagnoses / Procedures Referred By Contact Refer red To Contact Diagnoses Critical lower limb ischemia CELLULITIS RT FOOT Procedures EMERGENCY Referral ID Status Reason Start Date Expiration Date Visits Requ ested Visits Authorized [id number] 1 1 Encounter Details Date Type Department Care Team Description 08/09/2017 Surgery Main Operating Room Yonathan Smith AM PUTATION, Mary Hitchcock MD TRANSMETATARSAL ([facility] 12.71) [facility] DR Siddiqui [place] [address] [place] [address] [phone] Social History Tobacco Use Types Packs/Day Years [...] 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 Patient [...] Dorsalis Pedis (Ankle) Artery ?132 ? 0.94 ??Lamoure-Biphasic ? Posterior Tibial (Ankle) Artery ??154 ? 1.10 ??Lamoure-Biphasic ? Fourth Toe ? 67 ?0.48 ?? [...] the foot. Discharge Conditions/Prognosis: Good Discharge to: [facility] Rehab Discharge Medications: Your Medications New [...] For any problems or questions please call [phone] ZELDA Smith, porcelain waxer Nurse Clinician For issues on weeknights after 5pm and weekends please call [phone] and ask for the Vascular Fellow preparation supervisor canning. General Instructions None Future Appointments and Orders Future Appointments Provider Department Dept Phone 08/26/2017 4:00 PM Aurelia Rivera PA Vascular Surgery at [place] [phone] 09/07/2017 3:00 PM LAB, THREE L Lab 3L [facility] [phone] 09/07/2017 4:00 PM Luz Prescott MD Endocrinology at [place] [phone] 09/09/2017 8:00 AM Barbra Soares APRN Pain Management at [place] [phone] Please bring a list of your current [...] For any problems or questions please call [phone] ZELDA Smith, porcelain waxer Nurse Clinician For issues on weeknights after 5pm and weekends please call [phone] and ask for the Vascular Fellow preparation supervisor canning. documented in this encounter Medications at Time [...] of Care Management Discharge Note Patient Destination: [facility] ([facility]) [address] [id number] Transportation: with (at bedside) Time of Discharge: by 12 noon Level of Care: swing Patient Aware: yes Family Notified: yes Md to call report to: Yissel Quintero MODEL MAKER SCALE already called RN to call report to: [phone] Shirin Wolf Office of Care Management Pager [phone] Shirin Wolf RN - 08/16/2017 10:50 AM EST [facility] has offered pt swing bed. Pt and accept bed. will transport via car. MODEL MAKER SCALE Yissel Quintero aware; d/c paperwork will be completed by 12 noon. [facility] requests pt arrival by 1400 today; MODEL MAKER SCALE, RN, and family aware. MODEL MAKER SCALE called [facility] and was told that they prefer pt to arrive with wound vac dressing applied but clamped. MODEL MAKER SCALE applied new wound vac dressing. RN has [facility] number to call report. PASSR completed; MODEL MAKER SCALE paged to request provider signature in highlighted space. Indigo from [facility] notified via email that home wound vac now cancelled; [facility] has picked up from room and order cancelled. Packet started and provided to chief unit forester. Medicare important message explained to patient, patient signed. Copy provided to patient and signature page to OCM for inclusion in pt EMR. L Radha Powers Yoselin - 08/16/2017 10:34 AM EST Office of Care Management/Large Engine Assembler Patient Name: Gregory Hoang : 1945 Patient has been offered a swing bed at [facility]. The patient will be transported by private transportation. No MD to MD report necessary Please call Nursing Report to [phone], ask for commercial retoucher. Info to accompany patient: Narcotic Prescriptions Copies of Medication Administration Records and IV sheets for past 10 days. Plan: Large Engine Assembler will be available to the patient and Coatings Inspector-RN and/or Administrative Processor for further assistance. Patient will be discharged to: [place] [id number] Radha Powers, Large Engine Assembler Mira Truong, VAMSI - 08/15/2017 10:05 PM EST [address] Flores to ask if he wanted to hold metoprolol dose. BP 95/58. OK to hold this dose Courtney Brito - 08/15/2017 3:26 PM EST Office of Care Management(OCM)/Large Engine Assembler(RS)/ D/C Planning re : Patient is medically ready for d/c today. RS has been in contact with [facility] to see if they could offer a bed. [facility] is still reviewing the case and need their MD to review chart prior to accepting or declining. OCM team needs to check in with [facility] tomorrow to check on status. 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 Vac in place. Rehab [...] patient's referral to: [facility] PHONE: [phone] FAX: [phone] CM spoke with RS who said that [...] would be accepted to acute rehab at [facility] as Dr. Smith had recommended [...] rehab. Await recommendations from PT. Covering pager #[phone]. 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 Educational Institution President Kaitlin Saha, RN Pager #[phone] Payam Rosales - 08/13/2017 2:37 PM EST Restaurant Cook Encounter Note Patient Name: Gregory Hoang : [id number] MR#: [id number] Admit Date: 08/06/2017 1:41 PM Hospital Day 7 days Narrative: Visited to introduce and assess acceptance of [facility] services. Pt was awake, alert, oriented and in chair and family was there. Assessment:Patient coping positively with stresses of illness/hospitalization at this time. Pt says that he is hoping to get better and his family was there. Pt says that he has family care and supportand taking one day at time. Intervention and Outcome: Provided emotional support and encouraging presence. 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 A letter describing our affiliations was reviewed with them and theywere educated about their right to choose where referrals are placed. Patient requests referral to [facility]. PHONE: [phone] FAX: [phone]. And Home NPWT (Negative Pressure Wound Therapy) aka wound vac device made available to pt. Serial # confirmed. Reviewed [facility] Proof of Delivery/Assignment of Benefits Statement(POD/AOB) Form w patient or authorized agent signing on behalf of patient. Copy of POD/AOB provided to pt and other copy faxed to [employer] @ fax# [phone] Expected date of discharge: 08/12/2017. 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 Heparin gtt continues to run. [...] : 1945 AGE 72 y.o. Address: [address] [place] [address] [place] [address] (home) Mobile: Telephone Information: Referring Provider: No [...] 7.93) performed by Yuan Retana MD at [facility] OR ??? [...] 3 times daily (with meals). 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 Unsuccessful draw attempt, another platemaker will come [facility] to collect blood for PTT test. 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 Vascular resident preparation supervisor canning and will forward result to the team prior to rounds. 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 Patient [...] left blue toes with CTA showing R BUCKLE INSPECTOR pseudoaneurysm (now thrombosed) and occluded ATs bilaterally. [...] 2.5x80 5. Completion RLE angiogram 6. L BUCKLE INSPECTOR angiogram 7. 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 - L BUCKLE INSPECTOR angriogram demonstrated: High femoral bifurcation over the proximal half of the femoral head. L BUCKLE INSPECTOR access in the distal L BUCKLE INSPECTOR. - Closure device: Mynx Technical Procedure: The [...] for a 45cm 5F Destination. V18 and [employer] and QuickCross catheters were used to select [...] 5F. A stationed picture of the L BUCKLE INSPECTOR was performed as the patient was noted to have a very high bifurcation. Access appeared in the distal R BUCKLE INSPECTOR. Closure and sheath removal was performed with [...] PM EST 1440 report called to 5 bend nurse Tessa RN documented in this encounter [...] with pt and pt's spouse. Discharge to [facility]. Goal: Individualization & Mutuality Outcome: Outcome [...] sit/sit to supine -- Bed Mobility Goal, [place] Level independent -- Bed Mobility Goal, Date [...] days -- Transfer Training Goal, Activity Type ztm-ex-vcvas/hiqdm-kz-lot -- Transfer Train Goal, [place] Level conditional independence -- Transfer Train Goal, [...] call cabello within reach, Hourly rounding by RN/GENERAL DUTY NURSE. Bed alarm / Chair alarm. Patient-specific fall [...] - 08/15/2017 6:28 PM EST [facility] [place] Patient Name: Gregory Hoang : [id number] MR#: [id number] Case Date: 08/09/2017 Surgeon: Surgeon(s) and Role: [...] 2.5x80 5. Completion RLE angiogram 6. L BUCKLE INSPECTOR angiogram 7. Mynx closure Precautions/Restrictions: fall, sternal [...] other (see comments) (or swing bed) Pager: [phone] BASSAM ELIAS, PT 08/14/2017 Inpatient Physical Therapy [...] to Achieve by discharge Gait Training Goal, [place] Level conditional independence;set up required Gait Training [...] these facilities over the weekend except for [facility]. CM spoke with [facility] CM Drea Sandhu, VAMSI who said that they do not anticipate any beds over the weekend. Reviewed with patient/ that they need to be aware that patient will need to take the first bed offered at the facilities that they make referrals to. Their choices are: 1- [facility] PHONE: [phone] FAX: [phone] 2- [facility] ([facility]) [address] [place] [address] 3- [facility])([facility]) [address] [place] [address] I have discussed Medicare/Private Insurance [...] RS/CM on Wednesday to follow-up. Covering pager #[phone] for today. Plan of Care - Henrique [...] with additional findings of pseudoaneurysm on R BUCKLE INSPECTOR and bilateral anterior tibial artery occlusions. Was [...] an outpatient once discharged. Have patient call [phone] to set up an appointment. Follow-up: Dermatology will sign-off for now. Please do not hesitate to contact us if you have any questions orconcerns. Impression and Recommendations discussed with primary team on 08/13/2017. Karo Henderson MD Resident in Dermatology Section of Dermatology, Department of Surgery [facility] Pager [phone] Patient seen and evaluated with staff Plasterer Spray Gun: Halima Cordero MD Section of Dermatology [facility] Level of Resident Supervision: Direct [...] Outcome: Ongoing (Interventions Implemented as Appropriate) 08/12/17 8986 Coping/Psychosocial Plan Of Care Reviewed With patient;spouse [...] 2.5x80 5. Completion RLE angiogram 6. L BUCKLE INSPECTOR angiogram 7. Mynx closure Active Non-Hospital Problems [...] home with home health ([facility] PT&OT) Pager: [phone] YASIR TELLO OT 08/12/2017 Occupational Therapy Rehabilitation [...] 2.5x80 5. Completion RLE angiogram 6. L BUCKLE INSPECTOR angiogram 7. Mynx closure Past Medical History: [...] with 24/7 assistance and maximal services) Pager: [phone] NICHOLAS MORA, PT 08/12/2017 Physical Therapy Rehabilitation [...] sit/sit to supine -- Bed Mobility Goal, [place] Level independent -- Bed Mobility Goal, Outcome Achieved -- goal ongoing Goal: Gait Training Goal Stand Alone Therapy Goal Outcome: Ongoing (Interventions Implemented as Appropriate) 08/11/17 1310 08/12/17 1510 Gait Training Goal Gait Training Goal, Date Established 08/11/17 -- Gait Training Goal, Time to Achieve 5 - 7 days -- Gait Training Goal, [place] Level conditional independence -- Gait Training Goal, [...] days -- Transfer Training Goal, Activity Type yit-ks-comqd/wtabd-hz-ggn -- Transfer Train Goal, [place] Level conditional independence -- Transfer Training Goal, [...] - 08/11/2017 2:52 PM EST [facility] [place] Note Patient Name: Gregory Hoang : [id number] MR#: [id number] Case Date: 08/11/2017 Surgeon: Surgeon(s) and Role: [...] 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 Completion RLE angiogram 6. L BUCKLE INSPECTOR angiogram 7. Mynx closure He is very [...] Anticipated Discharge Disposition: inpatient rehabilitation facility Pager: [phone] LAWRENCE GONZALEZ, PT 08/11/2017 Physical Therapy Rehabilitation [...] to sit/sit to supine Bed Mobility Goal, [place] Level independent Goal: Gait Training Goal Stand Alone Therapy Goal Outcome: Ongoing (Interventions Implemented as Appropriate) 08/11/17 1310 Gait Training Goal Gait Training Goal, Date Established 08/11/17 Gait Training Goal, Time to Achieve 5 - 7 days Gait Training Goal, [place] Level conditional independence Gait Training Goal, Assist [...] 7 days Transfer Training Goal, Activity Type oaq-qk-ftrld/ymyuo-js-stp Transfer Train Goal, [place] Level conditional independence Plan of David DelloAnnetta [...] call cabello within reach, Hourly rounding by RN/GENERAL DUTY NURSE. Bed alarm / Chair alarm. ? Patient-specific [...] Within the Past 30 Days: [facility] [place]/2017 Anticipated Length Of Stay (If known): Expected Length of Hospitalization: 5-7 days2-3 days Current Decision-Making Capacity: Alert and oriented x 4 Advance Care Planning: on file Kisha Hoang [facility] [phone] Current Coping/Education/Information Needs: pt and spouse state [...] Health/Prescription Coverage: Primary Insurance: MEDICARE Secondary Insurance: [employer] [place] Prescription Coverage: See above [facility]erred [facility]acy: [facility] Other: N/A Primary Care Provider: Lovely Vicente MD [phone] Patient/Caregiver Goals of Treatment: Patient plans to return home when medically ready Potential Needs for Transition of Care: Rehab/SNF: N/A Home Health: [facility]. DME: pt has a cane and [...] of care planning. Kaitlin Saha RN Pager: [phone] Plan of Care - Melba Jaramillo RN [...] call cabello within reach, Hourly rounding by RN/GENERAL DUTY NURSE. Bed alarm / Chair alarm. Patient-specific fall prevention interventions for sensory deficits provided, if applicable: [X] Yes CPG GOAL OUTCOME EVALUATION: Goal: Fall Prevention-Safe Patient Handling Outcome: Ongoing (Interventions Implemented as Appropriate) 08/06/17 1700 08/06/17199908/07/17 7684 Positioning Body Position -- up in chair [...] at bedside and MD TEAM Carrying pager [phone] contacted (via Radio page) and notified of [...] Zulma Dolan MD [facility] [place], [place] [address] (Wo rk) 05/28/2022 Laboratory Appointment Lab 05/28/2022 Office Visit Cardiology Zulma Dolan MD [facility] [place] [address] Liz Poole PA [facility] [place] [address] 06/10/2022 Office Visit Dermatology Laura Scherer MD [facility] [address] [place], [place] [address] (Wo rk) documented as of [...] AND SCREEN Routine 08/09/2017 1:10 ([facility]SHANDA) AM EST BASIC METABOLIC PANEL Routine 08/09/2017 [...] 160 65 - 199 [place] mg/dL [facility] Comment: Supplemental ranges: <140 mg/dL before meals <180 mg/dL all other times of the day Specimen Anatomical Collection Method Collection Time Receive d Time (Source) Location / / Volume Laterality Blood specimen 08/16/2017 7:28 AM 018 7:28 (specimen) EST AM EST Yonathan Smith MD POINT OF CARE TEST ORDERABLE S Performing Organization Address City/State/ZIP [place] [address] [facility] [address] (ABNORMAL) Differential, Automated (08/16/2017 5:08 AM EST) [facility] Method Time Signature Neutrophils % 73.9 % [facility] Neutr Abs (ANC) 5.37 1.70 - [facility] 6.10 [facility] x10(3)/[facility] LABORATORY Lymphocytes % 10.1 % [facility] Lymphocytes Abs 0.7 (L) 0.9 - 3.2 [facility] x10(3)/[facility] LABORATORY Monocytes % 10.1 % [facility] Monocyte Abs 0.7 0.3 - 0.9 [facility] x10(3)/[facility] LABORATORY Eosinophils % 5.1 % [facility] Eosinophils Abs 0.4 0.0 - 0.4 [facility] x10(3)/[facility] LABORATORY Basophils % 0.4 % [facility] Basophils Abs 0.0 0.0 - 0.1 [facility] x10(3)/[facility] LABORATORY Immature Gran % 0.40 % [facility] [...] 0.04 x10(3)/[facility] MAR Y [facility] LABORATORY Specimen Anatomical Collection Method Collection Time Receive d Time (Source) Location / / Volume Laterality Blood specimen 08/16/2017 5:08 AM 018 5:20 (specimen) EST AM EST Resulting Agency Comment Spec In Lab Yonathan Smith MD HEMATOLOGY ORDERABLES Performing Organization Address City/State/Z[place] [address] [facility] [address] (ABNORMAL) Hemogram (08/16/2017 5:08 AM EST) Analysis Performed At Patho logist Time Signature WBC 7.3 4.0 - 9.5 [facility] x10(3)/[facility] LABORATORY RBC 3.36 (L) 4.58 - [facility] 5.54 [facility] x10(6)/[facility] LABORATORY Hemoglobin 9.7 (L) 13.7 - [facility] 16.[facility] gm/dL [facility] Hematocrit 30.3 (L) 40.5 - [facility] 48.5 % [facility] MCV 90.2 82.9 - [facility] 93.1 [facility] LABORATORY MCH 28.9 27.5 - [facility] 32.1 pg [facility] MCHC 32.0 32.0 [facility] 35.7 gm/dL [facility] Platelets 282 145 - 357 [facility] x10(3)/[facility] LABORATORY RDWSD 53.9 (H) 36.0 - [facility] 45.0 [facility] LABORATORY RDWCV 16.5 (H) 11.4 - [facility] 13.8 % [facility] MPV 9.0 7.6 - 12.9 [facility] LABORATORY nRBC % Auto 0.0 % [facility] nRBC Abs Auto 0.000 0.000 - [facility] 0.000 [facility] x10(3)/[facility] LABORATORY Specimen Anatomical Collection Method Collection Time Receive d Time (Source) Location / / Volume Laterality Blood specimen 08/16/2017 5:08 AM 018 5:20 (specimen) EST AM EST Resulting Agency Comment Spec In Lab Yonathan Smith MD HEMATOLOGY ORDERABLES Performing Organization Address City/State/ZIP [place] [address] (ABNORMAL) Basic Metabolic Panel (non-fasting) (08/16/2017 5:08 AM EST) P athologist Signature Glucose Lvl 141 65 - 199 [facility] mg/dL [facility] Comment: [...] LABORATORY Calcium 8.7 8.5 - 10.5 mg/dL [facility] Estimated GFR 57 (L) >=60 [facility] Comment: The reported eGFR should be multiplied b y 1.2 for patients. The MDRD is not an appropriate measure o f renal function for patients with body mass extremes or in patients with acute kidney failure. http://[employer]/DHnkdep http://[employer]/DHMCnkf Specimen Anatomical Collection Method Collection Time Receive d Time (Source) Location / / Volume Laterality Blood specimen 08/16/2017 5:08 AM 018 5:20 (specimen) EST AM EST Resulting Agency Comment Spec In Lab Yonathan Smith MD CHEMISTRY ORDERABLES Performing Organization Address City/State/[place] [address] (ABNORMAL) Prothrombin Time (08/16/2017 [...] Smith MD HEMATOLOGY ORDERABLES Performing Organization Address City/[facility]/ZIP Code Phon e Number [address] POCT Glucose (08/16/2017 4:09 AM EST) athologist Signature POC Glucose 147 65 - 199 [facility] RYAN mg/dL [facility] Comment: Supplemental ranges: <140 mg/dL before meals <180 mg/dL all other times of the day Specimen Anatomical Collection Method Collection Time Receive d Time (Source) Location / / Volume Laterality Blood specimen 08/16/2017 4:09 AM 018 4:09 (specimen) EST AM EST Yonathan Smith MD POINT OF CARE TEST ORDERABLE S Performing Organization Address City/[facility]/ZIP Code Phon e Number [address] POCT Glucose (08/15/2017 11:56 PM EST) athologist Signature POC Glucose 176 65 - 199 BARBAR[place] RYAN mg/dL [facility] Comment: Supplemental ranges: <140 mg/dL before meals <180 mg/dL all other times of the day Specimen Anatomical Collection Method Collection Time Receive d Time (Source) Location / / Volume Laterality Blood specimen 08/15/2017 11:56 8 (specimen) PM EST 11:56 PM EST Yonathan Smith MD POINT OF CARE TEST ORDERABLE S Performing Organization Address City/[facility]/ZIP Code Phon e Number [address] POCT Glucose (08/15/2017 8:05 PM EST) athologist Signature POC Glucose 136 65 - 199 [place]BARA [place]YAN mg/dL [facility] Comment: Supplemental ranges: <140 mg/dL before meals <180 mg/dL all other times of the day Specimen Anatomical Collection Method Collection Time Receive d Time (Source) Location / / Volume Laterality Blood specimen 08/15/2017 8:05 PM 018 8:05 (specimen) EST PM EST Yonathan Smith MD POINT OF CARE TEST ORDERABLE S Performing Organization Address City/State/[place] [address] (ABNORMAL) POCT Glucose (08/15/2017 4:50 PM EST) athologist Signature POC Glucose 232 (H) 65 - 199 [place] mg/dL [facility] Comment: Supplemental ranges: <140 mg/dL before meals <180 mg/dL all other times of the day Specimen Anatomical Collection Method Collection Time Receive d Time (Source) Location / / Volume Laterality Blood specimen 08/15/2017 4:50 PM 018 4:50 (specimen) EST PM EST Yonathan Smith MD POINT OF CARE TEST ORDERABLE S Performing Organization Address City/State/[place] [address] POCT Glucose (08/15/2017 12:04 PM EST) athologist Signature POC Glucose 135 65 - 199 [place] mg/dL [facility] Comment: Supplemental ranges: <140 mg/dL before meals <180 mg/dL all other times of the day Specimen Anatomical Collection Method Collection Time Receive d Time (Source) Location / / Volume Laterality Blood specimen 08/15/2017 12:04 8 (specimen) PM EST 12:04 PM EST Yonathan Smith MD POINT OF CARE TEST ORDERABLE S Performing Organization Address City/State/[place] [address] POCT Glucose (08/15/2017 7:36 AM EST) athologist Signature POC Glucose 124 65 - 199 [place] mg/dL [facility] Comment: Supplemental ranges: <140 mg/dL before meals <180 mg/dL all other times of the day Specimen Anatomical Collection Method Collection Time Receive d Time (Source) Location / / Volume Laterality Blood specimen 08/15/2017 7:36 AM 018 7:36 (specimen) EST AM EST Yonathan Smith MD POINT OF CARE TEST ORDERABLE S Performing Organization Address City/State/[place] [address] (ABNORMAL) Differential, Automated (08/15/2017 6:22 AM EST) [facility] Method Time Signature Neutrophils % 76.1 % [facility] Neutr Abs (ANC) 6.62 (H) 1.70 - [facility] 6.10 [facility] x10(3)/[facility] LABORATORY Lymphocytes % 9.3 % [facility] Lymphocytes Abs 0.8 (L) 0.9 - 3.2 [facility] x10(3)/[facility] LABORATORY Monocytes % 9.4 % [facility] Monocyte Abs 0.8 0.3 - 0.9 [facility] x10(3)/[facility] LABORATORY Eosinophils % 4.0 % [facility] Eosinophils Abs 0.4 0.0 - 0.4 [facility] x10(3)/[facility] LABORATORY Basophils % 0.6 % [facility] Basophils Abs 0.0 0.0 - 0.1 [facility] x10(3)/[facility] LABORATORY Immature Gran % 0.60 % [facility] [...] Smiht MD HEMATOLOGY ORDERABLES Performing Organization Address City/[facility]/ZIP Code Phon e Number [address] (ABNORMAL) Hemogram (08/15/2017 6:22 AM EST) Analysis Performed At Patho logist Time Signature WBC 8.7 4.0 - 9.5 [facility] x10(3)/[facility] LABORATORY RBC 3.21 (L) 4.58 - [place] 5.54 [facility] x10(6)/[facility] LABORATORY Hemoglobin 9.1 (L) 13.7 - [facility] gm/dL [facility] Hematocrit 29.0 (L) 40.5 - [facility] 48.5 % [facility]ATORY MCV 90.3 82.9 - [facility] 93.1 [facility] LABORATORY MCH 28.3 27.5 - [facility] RYAN 32.1 pg [facility] MCHC 31.4 (L) 32.0 - [facility] 35.7 gm/dL [facility] Platelets 254 145 - 357 [facility] x10(3)/[facility] LABORATORY RDWSD 53.9 (H) 36.0 - [facility] RYAN 45.0 [facility] LABORATORY RDWCV 16.3 (H) 11.4 - [facility] RYAN 13.8 % [facility] LABORATORY MPV 8.8 7.6 - 12.9 [facility] LABORATORY nRBC % Auto 0.0 % [facility]ORATORY nRBC Abs Auto 0.000 0.000 - [facility] RYAN 0.000 [facility] x10(3)/[facility] LABORATORY Specimen Anatomical Collection Method Collection Time Receive d Time (Source) Location / / Volume Laterality Blood specimen 08/15/2017 6:22 AM 018 6:33 (specimen) EST AM EST Resulting Agency Comment Spec In Lab Yonathan Smith MD HEMATOLOGY ORDERABLES Performing Organization Address City/State/ZIP Code Phon e Number [facility] [place] [address] (ABNORMAL) Basic Metabolic Panel (non-fasting) (08/15/2017 6:22 AM EST) P athologist Signature Glucose Lvl 118 65 - 199 [facility] mg/dL [facility] Comment: Diabetes: >=200 mg/dL plus symp toms BUN 27 (H) 10 - 20 mg/dL [facility] LABORATORY Creatinine 1.12 0.80 - 1.50 mg/dL [facility] LABORATORY Sodium 138 135 - 145 mmol/L [facility] LABORATORY Calcium 8.8 8.5 - 10.5 mg/dL [facility] LABORATORY Estimated GFR >60 >=60 [facility] Comment: The reported eGFR should be multiplied b y 1.2 for patients. The MDRD is not an appropriate measure o f renal function for patients with body mass extremes or in patients with acute kidney failure. http://[employer].niiu/DHnkdep http://[employer].niiu/DHMCnkf Specimen Anatomical Collection Method Collection Time Receive d Time (Source) Location / / Volume Laterality Blood specimen 08/15/2017 6:22 AM 018 6:33 (specimen) EST AM EST Resulting Agency Comment Spec In Lab Yonathan Smith MD CHEMISTRY ORDERABLES Performing Organization Address City/State/ZIP Code Phon e Number [address] (ABNORMAL) Prothrombin Time (08/15/2017 [...] Address City/State/ZIP Code Phon e Number [address] POCT Glucose (08/15/2017 4:33 AM EST) athologist Signature POC Glucose 164 65 - 199 [facility] mg/dL [facility] Comment: Supplemental ranges: <140 mg/dL before meals <180 mg/dL all other times of the day Specimen Anatomical Collection Method Collection Time Receive d Time (Source) Location / / Volume Laterality Blood specimen 08/15/2017 4:33 AM 018 4:33 (specimen) EST AM EST Yonathan Smith MD POINT OF CARE TEST ORDERABLE S Performing Organization Address City/State/ZIP Code Phon e Number [address] POCT Glucose (08/15/2017 12:12 AM EST) athologist Signature POC Glucose 89 65 - 199 [facility] Comment: Supplemental ranges: <140 mg/dL before meals <180 mg/dL all other times of the day Specimen Anatomical Collection Method Collection Time Receive d Time (Source) Location / / Volume Laterality Blood specimen 08/15/2017 12:12 8 (specimen) AM EST 12:12 AM EST Yonathan Smith MD POINT OF CARE TEST ORDERABLE S Performing Organization Address City/State/ZIP Code Phon e Number [address] (ABNORMAL) POCT Glucose (08/14/2017 8:07 PM EST) athologist Signature POC Glucose 204 (H) 65 - 199 [place] mg/dL [facility] Comment: Supplemental ranges: <140 mg/dL before meals <180 mg/dL all other times of the day Specimen Anatomical Collection Method Collection Time Receive d Time (Source) Location / / Volume Laterality Blood specimen 08/14/2017 8:07 PM 018 8:07 (specimen) EST PM EST Yonathan Smith MD POINT OF CARE TEST ORDERABLE S Performing Organization Address City/[facility]/[place] [address] POCT Glucose (08/14/2017 5:11 PM EST) athologist Signature POC Glucose 174 65 - 199 [place] mg/dL [facility] Comment: Supplemental ranges: <140 mg/dL before meals <180 mg/dL all other times of the day Specimen Anatomical Collection Method Collection Time Receive d Time (Source) Location / / Volume Laterality Blood specimen 08/14/2017 5:11 PM 018 5:11 (specimen) EST PM EST Yonathan Smith MD POINT OF CARE TEST ORDERABLE S Performing Organization Address City/State/[place] [address] POCT Glucose (08/14/2017 12:10 PM EST) athologist Signature POC Glucose 141 65 - 199 [place] mg/dL [facility] Comment: Supplemental ranges: <140 mg/dL before meals <180 mg/dL all other times of the day Specimen Anatomical Collection Method Collection Time Receive d Time (Source) Location / / Volume Laterality Blood specimen 08/14/2017 12:10 8 (specimen) PM EST 12:10 PM EST Yonathan Smith MD POINT OF CARE TEST ORDERABLE S Performing Organization Address City/State/ZIP Code Phon e Number [address] POCT Glucose (08/14/2017 8:07 AM EST) P athologist Signature POC Glucose 158 65 - 199 [facility] mg/dL [facility] Comment: Supplemental ranges: <140 mg/dL before meals <180 mg/dL all other times of the day Specimen Anatomical Collection Method Collection Time Receive d Time (Source) Location / / Volume Laterality Blood specimen 08/14/2017 8:07 AM 018 8:07 (specimen) EST AM EST Yonathan Smith MD POINT OF CARE TEST ORDERABLE S Performing Organization Address City/State/ZIP Code Phon e Number [address] (ABNORMAL) Differential, Automated (08/14/2017 4:52 AM EST) Patholo gist Method Time Signature Neutrophils % 78.6 % [facility]OR[facility] Neutr Abs (ANC) 7.70 (H) 1.70 - [facility] 6.10 [facility] x10(3)/[facility] LABORATORY Lymphocytes % 7.8 % [facility] LABORATORY Lymphocytes Abs 0.8 (L) 0.9 - 3.2 [facility] x10(3)/[facility] LABORATORY Monocytes % 8.8 % [facility] LABORATORY Monocyte Abs 0.9 0.3 - 0.9 [facility] x10(3)/[facility] LABORATORY Eosinophils % 4.0 % [facility] LABORATORY Eosinophils Abs 0.4 0.0 - 0.4 [facility] x10(3)/[facility] LABORATORY Basophils % 0.5 % [facility] LABORATORY Basophils Abs 0.0 0.0 - 0.1 [facility] x10(3)/[facility] LABORATORY Immature Gran % 0.30 % [facility] [...] 0.04 x10(3)/[facility] MAR Y [facility] LABORATORY Specimen Anatomical Collection Method Collection Time Receive d Time (Source) Location / / Volume Laterality Blood specimen 08/14/2017 4:52 AM 018 5:08 (specimen) EST AM EST Resulting Agency Comment Spec In Lab Yonathan Smith MD HEMATOLOGY ORDERABLES Performing Organization Address City/State/[place] [address] (ABNORMAL) Hemogram (08/14/2017 4:52 AM EST) Analysis Performed At Patho logist Time Signature WBC 9.8 (H) 4.0 - 9.5 [facility] x10(3)/[facility] LABORATORY RBC 3.32 (L) 4.58 [facility] x10(6)/[facility] LABORATORY Hemoglobin 9.5 (L) 13.7 [facility] gm/dL [facility]ATORY Hematocrit 30.3 (L) 40.5 - [facility] 48.5 % [facility] LABORATORY MCV 91.3 82.9 - [facility] 93.1 [facility] LABORATORY MCH 28.6 27.5 - [facility] 32.1 pg [facility]ORATORY MCHC 31.4 (L) 32.0 [facility].7 gm/dL [facility] Platelets 263 145 - 357 [facility] x10(3)/[facility] LABORATORY RDWSD 54.8 (H) 36.0 - [facility] 45.0 [facility] LABORATORY RDWCV 16.5 (H) 11.4 - [facility] 13.8 % [facility] LABORATORY MPV 9.1 7.6 - 12.9 [facility] LABORATORY nRBC % Auto 0.0 % [facility]ORATORY nRBC Abs Auto 0.000 0.000 [facility] x10(3)/[facility] LABORATORY Specimen Anatomical Collection Method Collection Time Receive d Time (Source) Location / / Volume Laterality Blood specimen 08/14/2017 4:52 AM 018 5:08 (specimen) EST AM EST Resulting Agency Comment Spec In Lab Yonathan Smith MD HEMATOLOGY ORDERABLES Performing Organization Address City/[facility]/[place] [address] (ABNORMAL) Prothrombin Time (08/14/2017 [...] Smith MD HEMATOLOGY ORDERABLES Performing Organization Address City/[facility]/[place] [address] (ABNORMAL) Basic Metabolic Panel (non-fasting) (08/14/2017 4:52 AM EST) athologist Signature Glucose Lvl 135 65 - 199 [facility] mg/dL [facility] Comment: [...] mg/dL [facility] LABORATORY Estimated GFR 52 (L) >=60 [facility] Comment: The reported eGFR should be multiplied b y 1.2 for patients. The MDRD is not an appropriate measure o f renal function for patients with body mass extremes or in patients with acute kidney failure. http://[employer].niiu/DHnkdep http://[employer]/DHMCnkf Specimen Anatomical Collection Method Collection Time Receive d Time (Source) Location / / Volume Laterality Blood specimen 08/14/2017 4:52 AM 018 5:08 (specimen) EST AM EST Resulting Agency Comment Spec In Lab Yonathan Smith MD CHEMISTRY ORDERABLES Performing Organization Address City/[facility]/ZIP Code Phon e Number [address] POCT Glucose (08/14/2017 3:56 AM EST) P athologist Signature POC Glucose 135 65 - 199 [facility] mg/dL [facility] Comment: Supplemental ranges: <140 mg/dL before meals <180 mg/dL all other times of the day Specimen Anatomical Collection Method Collection Time Receive d Time (Source) Location / / Volume Laterality Blood specimen 08/14/2017 3:56 AM 018 3:56 (specimen) EST AM EST Yonathan Smith MD POINT OF CARE TEST ORDERABLE S Performing Organization Address City/[facility]/[place] [address] POCT Glucose (08/13/2017 11:13 PM EST) athologist Signature POC Glucose 118 65 - 199 [place] mg/dL [facility] Comment: Supplemental ranges: <140 mg/dL before meals <180 mg/dL all other times of the day Specimen Anatomical Collection Method Collection Time Receive d Time (Source) Location / / Volume Laterality Blood specimen 08/13/2017 11:13 8 (specimen) PM EST 11:13 PM EST Yonathan Smith MD POINT OF CARE TEST ORDERABLE S Performing Organization Address City/State/[place] [address] (ABNORMAL) POCT Glucose (08/13/2017 8:08 PM EST) athologist Signature POC Glucose 204 (H) 65 - 199 [facility]dL [facility] Comment: Supplemental ranges: <140 mg/dL before meals <180 mg/dL all other times of the day Specimen Anatomical Collection Method Collection Time Receive d Time (Source) Location / / Volume Laterality Blood specimen 08/13/2017 8:08 PM 018 8:08 (specimen) EST PM EST Yonathan Smith MD POINT OF CARE TEST ORDERABLE S Performing Organization Address City/State/[place] [address] POCT Glucose (08/13/2017 4:02 PM EST) athologist Signature POC Glucose 145 65 - 199 [facility] mg/dL [facility] Comment: Supplemental ranges: <140 mg/dL before meals <180 mg/dL all other times of the day Specimen Anatomical Collection Method Collection Time Receive d Time (Source) Location / / Volume Laterality Blood specimen 08/13/2017 4:02 PM 018 4:02 (specimen) EST PM EST Yonathan Smith MD POINT OF CARE TEST ORDERABLE S Performing Organization Address City/State/[place] [address] POCT Glucose (08/13/2017 11:31 AM EST) athologist Signature POC Glucose 179 65 - 199 [facility]dL [facility] Comment: Supplemental ranges: <140 mg/dL before meals <180 mg/dL all other times of the day Specimen Anatomical Collection Method Collection Time Receive d Time (Source) Location / / Volume Laterality Blood specimen 08/13/2017 11:31 8 (specimen) AM EST 11:31 AM EST Yonathan Smith MD POINT OF CARE TEST ORDERABLE S Performing Organization Address City/[facility]/[place] [address] (ABNORMAL) POCT Glucose (08/13/2017 10:16 AM EST) athologist Signature POC Glucose 211 (H) 65 - 199 [facility]dL [facility] Comment: Supplemental ranges: <140 mg/dL before meals <180 mg/dL all other times of the day Specimen Anatomical Collection Method Collection Time Receive d Time (Source) Location / / Volume Laterality Blood specimen 08/13/2017 10:16 8 (specimen) AM EST 10:16 AM EST Yonathan Smith MD POINT OF CARE TEST ORDERABLE S Performing Organization Address City/[facility]/[place] [address] JULIAN, legs, multiple levels (08/13/2017 7:42 AM EST) Component Value Ref Test [facility] Method Time Signature VB Text Department: Vascular Surgery Lab VASCUBASE Report Patient: [id number] (GREGORY HOANG) CPT: 02276 ICD10: I99.8 Referring Physician: YONATHAN SMITH ?? Indications: s/p R 1,2,3 toe amps with red left foot, need n ew baseline Diabetes mellitus: yes ICD10 Diagnosis Code: I99.8 Findings: Right ?Pressure (mm Hg) ?? JULIAN ??Waveform ?TBI ?? Brachial Artery ?138 ? Dorsalis Pedis (Ankle) Arter y ?132 ? 0.94 ??Lamoure- Biphasic ? Posterior Tibial (Ankle) Art anila ??154 ? 1.10 ??Lamoure-Biphasic ? Fourth Toe ? 67 ? 0.48 [...] Signature POC Glucose 156 65 - 199 [facility] mg/dL [facility] Comment: Supplemental ranges: <140 mg/dL before meals <180 mg/dL all other times of the day Specimen Anatomical Collection Method Collection Time Receive d Time (Source) Location / / Volume Laterality Blood specimen 08/13/2017 7:33 AM 018 7:33 (specimen) EST AM EST Yonathan Smith MD POINT OF CARE TEST ORDERABLE S Performing Organization Address City/State/[place] [address] (ABNORMAL) Differential, Automated (08/13/2017 5:33 AM EST) Patholo gist Method Time Signature Neutrophils % 77.8 % [facility] LABORATORY Neutr Abs (ANC) 7.83 (H) 1.70 - [facility] 6.10 [facility] x10(3)/[facility] LABORATORY Lymphocytes % 8.4 % [facility] LABORATORY Lymphocytes Abs 0.8 (L) 0.9 - 3.2 [facility] x10(3)/[facility] LABORATORY Monocytes % 8.3 % [facility] LABORATORY Monocyte Abs 0.8 0.3 - 0.9 [facility] x10(3)/[facility] LABORATORY Eosinophils % 4.6 % [facility] LABORATORY Eosinophils Abs 0.5 (H) 0.0 - 0.4 [facility] x10(3)/[facility] LABORATORY Basophils % 0.5 % [facility] LABORATORY Basophils Abs 0.0 0.0 - 0.1 [facility] x10(3)/[facility] LABORATORY Immature Gran % 0.40 % [facility] [...] 0.04 x10(3)/[facility] MAR Y [facility] LABORATORY Specimen Anatomical Collection Method Collection Time Receive d Time (Source) Location / / Volume Laterality Blood specimen 08/13/2017 5:33 AM 018 6:04 (specimen) EST AM EST Resulting Agency Comment Spec In Lab Yonathan Smith MD HEMATOLOGY ORDERABLES Performing Organization Address City/State/ZIP Code Phon e Number [place] [id number] (ABNORMAL) Hemogram (08/13/2017 5:33 AM EST) Analysis Performed At Patho logist Time Signature WBC 10.1 (H) 4.0 - 9.5 [facility] x10(3)/[facility] LABORATORY RBC 3.21 (L) 4.58 - [facility] 5.54 [facility] x10(6)/[facility] LABORATORY Hemoglobin 9.2 (L) 13.7 - [facility] 16[facility] gm/dL [facility] LABORATORY Hematocrit 29.6 (L) 40.5 - [facility] 48.5 % [facility] LABORATORY MCV 92.2 82.9 - [facility] 93.1 [facility] LABORATORY MCH 28.7 27.5 - [facility] 32.1 pg [facility]ORATORY MCHC 31.1 (L) 32.0 [facility] gm/dL [facility]ORATORY Platelets 263 145 - 357 [facility] x10(3)/[facility] LABORATORY RDWSD 54.8 (H) 36.0 [facility].0 [facility] LABORATORY RDWCV 16.4 (H) 11.4 - [facility] 13.8 % [facility] LABORATORY MPV 9.2 7.6 - 12.9 [facility] LABORATORY nRBC % Auto 0.0 % [facility] LABORATORY nRBC Abs Auto 0.000 0.000 - [facility] 0.000 [facility] x10(3)/[facility] LABORATORY Specimen Anatomical Collection Method Collection Time Receive d Time (Source) Location / / Volume Laterality Blood specimen 08/13/2017 5:33 AM 018 6:04 (specimen) EST AM EST Resulting Agency Comment Spec In Lab Yonathan Smith MD HEMATOLOGY ORDERABLES Performing Organization Address City/State/[place] [address] (ABNORMAL) Prothrombin Time (08/13/2017 [...] Organization Address City/State/[place] [address] (ABNORMAL) Basic Metabolic Panel (non-fasting) (08/13/2017 5:33 AM EST) P athologist Signature Glucose Lvl 126 65 - 199 [facility] mg/dL [facility] LABORATORY Comment: [...] Calcium 7.9 (L) 8.5 - 10.5 mg/dL [facility] LABORATORY Estimated GFR >60 >=60 [facility] LABORATORY Comment: The reported eGFR should be multiplied b y 1.2 for patients. The MDRD is not an appropriate measure o f renal function for patients with body mass extremes or in patients with acute kidney failure. http://[employer].niiu/DHnkdep http://[employer].niiu/DHMCnkf Specimen Anatomical Collection Method Collection Time Receive d Time (Source) Location / / Volume Laterality Blood specimen 08/13/2017 5:33 AM 018 6:04 (specimen) EST AM EST Resulting Agency Comment Spec In Lab Yonathan Smith MD CHEMISTRY ORDERABLES Performing Organization Address City/State/ZIP Code Phon e Number [address] POCT Glucose (08/13/2017 4:29 AM EST) athologist Signature POC Glucose 111 65 - 199 [facility] mg/dL [facility] LABOR[facility]ORY Comment: Supplemental ranges: <140 mg/dL before meals <180 mg/dL all other times of the day Specimen Anatomical Collection Method Collection Time Receive d Time (Source) Location / / Volume Laterality Blood specimen 08/13/2017 4:29 AM 018 4:29 (specimen) EST AM EST Yonathan Smith MD POINT OF CARE TEST ORDERABLE S Performing Organization Address City/[facility]/[place] [address] POCT Glucose (08/12/2017 11:28 PM EST) athologist Signature POC Glucose 164 65 - 199 [facility] mg/dL [facility]OR[facility] Comment: Supplemental ranges: <140 mg/dL before meals <180 mg/dL all other times of the day Specimen Anatomical Collection Method Collection Time Receive d Time (Source) Location / / Volume Laterality Blood specimen 08/12/2017 11:28 8 (specimen) PM EST 11:28 PM EST Yonathan Smith MD POINT OF CARE TEST ORDERABLE S Performing Organization Address City/[facility]/ZIP Code Phon e Number [address] (ABNORMAL) POCT Glucose (08/12/2017 7:40 PM EST) athologist Signature POC Glucose 209 (H) 65 - 199 [facility] mg/dL [facility] LABOR[facility] Comment: Supplemental ranges: <140 mg/dL before meals <180 mg/dL all other times of the day Specimen Anatomical Collection Method Collection Time Receive d Time (Source) Location / / Volume Laterality Blood specimen 08/12/2017 7:40 PM 018 7:40 (specimen) EST PM EST Yonathan Smith MD POINT OF CARE TEST ORDERABLE S Performing Organization Address City/State/ZIP Code Phon e Number [address] POCT Glucose (08/12/2017 4:24 PM EST) athologist Signature POC Glucose 161 65 - 199 [place] mg/dL [facility] Comment: Supplemental ranges: <140 mg/dL before meals <180 mg/dL all other times of the day Specimen Anatomical Collection Method Collection Time Receive d Time (Source) Location / / Volume Laterality Blood specimen 08/12/2017 4:24 PM 018 4:24 (specimen) EST PM EST Yonathan Smith MD POINT OF CARE TEST ORDERABLE S Performing Organization Address City/State/ZIP Code Phon e Number [address] POCT Glucose (08/12/2017 12:00 PM EST) athologist Signature POC Glucose 167 65 - 199 [place] mg/dL [facility] Comment: Supplemental ranges: <140 mg/dL before meals <180 mg/dL all other times of the day Specimen Anatomical Collection Method Collection Time Receive d Time (Source) Location / / Volume Laterality Blood specimen 08/12/2017 12:00 8 (specimen) PM EST 12:00 PM EST Yonathan Smith MD POINT OF CARE TEST ORDERABLE S Performing Organization Address City/State/ZIP Code Phon e Number [address] POCT Glucose (08/12/2017 7:25 AM EST) athologist Signature POC Glucose 152 65 - 199 [place] mg/dL [facility] Comment: Supplemental ranges: <140 mg/dL before meals <180 mg/dL all other times of the day Specimen Anatomical Collection Method Collection Time Receive d Time (Source) Location / / Volume Laterality Blood specimen 08/12/2017 7:25 AM 018 7:25 (specimen) EST AM EST Yonathan Smith MD POINT OF CARE TEST ORDERABLE S Performing Organization Address City/State/[place] [address] (ABNORMAL) Differential, Automated (08/12/2017 6:29 AM EST) [facility] Method Time Signature Neutrophils % 78.7 % [facility] Neutr Abs (ANC) 7.94 (H) 1.70 - [facility] 6.10 [facility] x10(3)/[facility] LABORATORY Lymphocytes % 8.8 % [facility] Lymphocytes Abs 0.9 0.9 - 3.2 [facility] x10(3)/[facility] LABORATORY Monocytes % 7.8 % [facility] Monocyte Abs 0.8 0.3 - 0.9 [facility] x10(3)/[facility] LABORATORY Eosinophils % 3.9 % [facility] Eosinophils Abs 0.4 0.0 - 0.4 [facility] x10(3)/[facility] LABORATORY Basophils % 0.3 % [facility] Basophils Abs 0.0 0.0 - 0.1 [facility] x10(3)/[facility] LABORATORY Immature Gran % 0.50 % [facility] [...] Address City/State/ZIP Code Phon e Number [address] (ABNORMAL) Hemogram (08/12/2017 6:29 AM EST) Analysis Performed At Patho logist Time Signature WBC 10.1 (H) 4.0 - 9.5 [facility] LABORATORY RBC 3.02 (L) 4.58 - [place] 5.54 [facility] x10(6)/[facility] LABORATORY Hemoglobin 8.7 (L) 13.7 - [facility] 16.5 gm/dL [facility] Hematocrit 28.1 (L) 40.5 - [facility] 48.5 % [facility] MCV 93.0 82.9 - [facility] 93.1 [facility] LABORATORY MCH 28.8 27.5 - [place] 32.1 pg [facility] MCHC 31.0 (L) 32.0 - [place] 35.7 gm/dL [facility] Platelets 223 145 - 357 [facility] x10(3)/[facility] LABORATORY RDWSD 56.1 (H) 36.0 - [place] 45.0 [facility] LABORATORY RDWCV 16.4 (H) 11.4 - [facility] RYAN 13.8 % [facility] LABORATORY MPV 9.0 7.6 - 12.9 [facility] LABORATORY nRBC % Auto 0.0 % [facility] nRBC Abs Auto 0.000 0.000 - [place] 0.000 [facility] x10(3)/[facility] LABORATORY Specimen Anatomical Collection Method Collection Time Receive d Time (Source) Location / / Volume Laterality Blood specimen 08/12/2017 6:29 AM 018 6:38 (specimen) EST AM EST Resulting Agency Comment Spec In Lab Yonathan Smith MD HEMATOLOGY ORDERABLES Performing Organization Address City/State/[place] [address] (ABNORMAL) Prothrombin Time (08/12/2017 [...] Organization Address City/State/[place] [address] (ABNORMAL) Basic Metabolic Panel (non-fasting) (08/12/2017 6:29 AM EST) athologist Signature Glucose Lvl 151 65 - 199 [facility] mg/dL [facility] Comment: Diabetes: >=200 mg/dL plus symp toms BUN 18 10 - 20 mg/dL [facility] LABORATORY Creatinine 1.11 0.80 - 1.50 mg/dL [facility] LABORATORY Sodium 138 135 - 145 mmol/L [facility] Calcium 7.9 (L) 8.5 - 10.5 mg/dL [facility] LABORATORY Estimated GFR >60 >=60 [facility]OR[facility] Comment: The reported eGFR should be multiplied b y 1.2 for patients. The MDRD is not an appropriate measure o f renal function for patients with body mass extremes or in patients with acute kidney failure. http://[employer]/DHnkdep http://[employer]/DHMCnkf Specimen Anatomical Collection Method Collection Time Receive d Time (Source) Location / / Volume Laterality Blood specimen 08/12/2017 6:29 AM 018 6:38 (specimen) EST AM EST Resulting Agency Comment Spec In Lab Yonathan Smith MD CHEMISTRY ORDERABLES Performing Organization Address City/[facility]/ZIP Code Phon e Number [address] POCT Glucose (08/12/2017 4:08 AM EST) athologist Signature POC Glucose 181 65 - 199 [facility] mg/dL [facility] Comment: Supplemental ranges: <140 mg/dL before meals <180 mg/dL all other times of the day Specimen Anatomical Collection Method Collection Time Receive d Time (Source) Location / / Volume Laterality Blood specimen 08/12/2017 4:08 AM 018 4:08 (specimen) EST AM EST Yonathan Smith MD POINT OF CARE TEST ORDERABLE S Performing Organization Address City/State/[place] [address] (ABNORMAL) POCT Glucose (08/12/2017 12:17 AM EST) P athologist Signature POC Glucose 221 (H) 65 - 199 [facility] Comment: Supplemental ranges: <140 mg/dL before meals <180 mg/dL all other times of the day Specimen Anatomical Collection Method Collection Time Receive d Time (Source) Location / / Volume Laterality Blood specimen 08/12/2017 12:17 8 (specimen) AM EST 12:17 AM EST Yonathan Smith MD POINT OF CARE TEST ORDERABLE S Performing Organization Address City/[facility]/ZIP Code Phon e Number [address] (ABNORMAL) POCT Glucose (08/11/2017 8:52 PM EST) athologist Signature POC Glucose 221 (H) 65 - 199 [place] mg/dL [facility] Comment: Supplemental ranges: <140 mg/dL before meals <180 mg/dL all other times of the day Specimen Anatomical Collection Method Collection Time Receive d Time (Source) Location / / Volume Laterality Blood specimen 08/11/2017 8:52 PM 018 8:52 (specimen) EST PM EST Yonathan Smith MD POINT OF CARE TEST ORDERABLE S Performing Organization Address City/[facility]/[place] [address] POCT Glucose (08/11/2017 5:59 PM EST) athologist Signature POC Glucose 169 65 - 199 [place] mg/dL [facility] Comment: Supplemental ranges: <140 mg/dL before meals <180 mg/dL all other times of the day Specimen Anatomical Collection Method Collection Time Receive d Time (Source) Location / / Volume Laterality Blood specimen 08/11/2017 5:59 PM 018 5:59 (specimen) EST PM EST Yonathan Smith MD POINT OF CARE TEST ORDERABLE S Performing Organization Address City/[facility]/[place] [address] (ABNORMAL) POCT Glucose (08/11/2017 4:08 PM EST) athologist Signature POC Glucose 240 (H) 65 - 199 [place] mg/dL [facility] Comment: Supplemental ranges: <140 mg/dL before meals <180 mg/dL all other times of the day Specimen Anatomical Collection Method Collection Time Receive d Time (Source) Location / / Volume Laterality Blood specimen 08/11/2017 4:08 PM 01/17/2 018 4:08 (specimen) EST PM EST Yonathan Smith MD POINT OF CARE TEST ORDERABLE S Performing Organization Address City/State/ZIP Code Phon e Number [address] POCT Glucose (08/11/2017 12:04 PM EST) athologist Signature POC Glucose 182 65 - 199 [facility] Comment: Supplemental ranges: <140 mg/dL before meals <180 mg/dL all other times of the day Specimen Anatomical Collection Method Collection Time Receive d Time (Source) Location / / Volume Laterality Blood specimen 08/11/2017 12:04 8 (specimen) PM EST 12:04 PM EST Yonathan Smith MD POINT OF CARE TEST ORDERABLE S Performing Organization Address City/State/ZIP Code Phon e Number [address] POCT Glucose (08/11/2017 7:31 AM EST) athologist Signature POC Glucose 156 65 - 199 [facility] Comment: Supplemental ranges: <140 mg/dL before meals <180 mg/dL all other times of the day Specimen Anatomical Collection Method Collection Time Receive d Time (Source) Location / / Volume Laterality Blood specimen 08/11/2017 7:31 AM 018 7:31 (specimen) EST AM EST Yonathan Smith MD POINT OF CARE TEST ORDERABLE S Performing Organization Address City/State/ZIP Code Phon e Number [address] (ABNORMAL) Differential, Automated (08/11/2017 6:16 AM EST) [facility] gist Method Time Signature Neutrophils % 83.7 % [facility]OR[facility]ORY Neutr Abs (ANC) 10.76 (H) 1.70 - [facility] 6.10 [facility] x10(3)/[facility] LABORATORY Lymphocytes % 6.0 % [facility]ORY Lymphocytes Abs 0.8 (L) 0.9 - 3.2 [facility] x10(3)/[facility] LABORATORY Monocytes % 7.5 % [facility]ORATORY Monocyte Abs 1.0 (H) 0.3 - 0.9 [facility] x10(3)/[facility] LABORATORY Eosinophils % 2.0 % [facility]OR[facility] Eosinophils Abs 0.3 0.0 - 0.4 [facility] x10(3)/[facility] LABORATORY Basophils % 0.3 % [facility] Basophils Abs 0.0 0.0 - 0.1 [facility] x10(3)/[facility] LABORATORY Immature Gran % 0.50 % [facility] [...] Organization Address City/State/[place] [address] (ABNORMAL) Hemogram (08/11/2017 6:16 AM EST) Analysis Performed At Patho logist Time Signature WBC 12.9 (H) 4.0 - 9.5 [facility] x10(3)/[facility] LABORATORY RBC 3.28 (L) 4.58 - [facility] 5.54 [facility] x10(6)/[facility] LABORATORY Hemoglobin 9.5 (L) 13.7 - [facility] 16.5 gm/dL [facility] Hematocrit 29.8 (L) 40.5 - [facility] 48.5 % [facility]ORY MCV 90.9 82.9 - [facility] 93.1 [facility] LABORATORY MCH 29.0 27.5 - [place] 32.1 pg [facility] MCHC 31.9 (L) 32.0 - [place] DAV[place] 35.7 gm/dL [facility] Platelets 236 145 - 357 [facility] x10(3)/[facility] LABORATORY RDWSD 53.5 (H) 36.0 - [facility] 45.0 [facility] LABORATORY RDWCV 16.3 (H) 11.4 - [facility] RYAN 13.8 % [facility] LABORATORY MPV 8.8 7.6 - 12.9 [facility] LABORATORY nRBC % Auto 0.0 % [facility] LABOR[facility] nRBC Abs Auto 0.000 0.000 - [facility] RYAN 0.000 [facility] x10(3)/[facility] LABORATORY Specimen Anatomical Collection Method Collection Time Receive d Time (Source) Location / / Volume Laterality Blood specimen 08/11/2017 6:16 AM 018 6:24 (specimen) EST AM EST Resulting Agency Comment Spec In Lab Yonathan Smith MD HEMATOLOGY ORDERABLES Performing Organization Address City/State/[place] [address] (ABNORMAL) Prothrombin Time (08/11/2017 [...] Smith MD HEMATOLOGY ORDERABLES Performing Organization Address City/[facility]/[place] [address] Basic Metabolic Panel (non-fasting) (08/11/2017 6:16 AM EST) athologist Signature Glucose Lvl 139 65 - 199 [facility] mg/dL [facility] Comment: Diabetes: >=200 mg/dL plus symp toms BUN 12 10 - 20 mg/dL [facility] LABORATORY Creatinine 0.91 0.80 - 1.50 mg/dL [facility] LABORATORY Sodium 138 135 - 145 mmol/L [facility] [...] or in patients with acute kidney failure. http://[employer]niiu/DHnkdep http://[employer].niiu/DHMCnkf Specimen Anatomical Collection Method Collection Time Receive d Time (Source) Location / / Volume Laterality Blood specimen 08/11/2017 6:16 AM 018 6:24 (specimen) EST AM EST Resulting Agency Comment Spec In Lab Yonathan Smith MD CHEMISTRY ORDERABLES Performing Organization Address City/[facility]/ZIP Code Phon e Number [address] POCT Glucose (08/11/2017 4:07 AM EST) athologist Signature POC Glucose 162 65 - 199 [place] mg/dL [facility] Comment: Supplemental ranges: <140 mg/dL before meals <180 mg/dL all other times of the day Specimen Anatomical Collection Method Collection Time Receive d Time (Source) Location / / Volume Laterality Blood specimen 08/11/2017 4:07 AM 018 4:07 (specimen) EST AM EST Yonathan Smith MD POINT OF CARE TEST ORDERABLE S Performing Organization Address City/State/ZIP Code Phon e Number [address] POCT Glucose (08/10/2017 11:59 PM EST) athologist Signature POC Glucose 166 65 - 199 [place] mg/dL [facility] Comment: Supplemental ranges: <140 mg/dL before meals <180 mg/dL all other times of the day Specimen Anatomical Collection Method Collection Time Receive d Time (Source) Location / / Volume Laterality Blood specimen 08/10/2017 11:59 8 (specimen) PM EST 11:59 PM EST Yonathan Smith MD POINT OF CARE TEST ORDERABLE S Performing Organization Address City/State/[place] [address] POCT Glucose (08/10/2017 8:12 PM EST) athologist Signature POC Glucose 156 65 - 199 [facility] RYAN mg/dL [facility] Comment: Supplemental ranges: <140 mg/dL before meals <180 mg/dL all other times of the day Specimen Anatomical Collection Method Collection Time Receive d Time (Source) Location / / Volume Laterality Blood specimen 08/10/2017 8:12 PM 018 8:12 (specimen) EST PM EST Yonathan Smith MD POINT OF CARE TEST ORDERABLE S Performing Organization Address City/State/[place] [address] (ABNORMAL) POCT Glucose (08/10/2017 4:42 PM EST) P athologist Signature POC Glucose 211 (H) 65 - 199 [facility] mg/dL [facility] Comment: Supplemental ranges: <140 mg/dL before meals <180 mg/dL all other times of the day Specimen Anatomical Collection Method Collection Time Receive d Time (Source) Location / / Volume Laterality Blood specimen 08/10/2017 4:42 PM 018 4:42 (specimen) EST PM EST Yonathan Smith MD POINT OF CARE TEST ORDERABLE S Performing Organization Address City/State/ZIP Code Phon e Number [place] [id number] Drive (ABNORMAL) Differential, Automated (08/10/2017 2:30 PM EST) Patholo gist Method Time Signature Neutrophils % 87.6 % [facility]ORATORY Neutr Abs (ANC) 9.90 (H) 1.70 - [facility] 6.10 [facility] x10(3)/[facility] L LABORATORY Lymphocytes % 4.3 % [facility] LABORATORY Lymphocytes Abs 0.5 (L) 0.9 - 3.2 [facility] x10(3)/[facility] LABORATORY Monocytes % 6.0 % [facility]OR[facility]ORY Monocyte Abs 0.7 0.3 - 0.9 [facility] x10(3)/[facility] LABORATORY Eosinophils % 1.1 % [facility]OR[facility]ORY Eosinophils Abs 0.1 0.0 - 0.4 [facility] x10(3)/[facility] LABORATORY Basophils % 0.4 % [facility] Basophils Abs 0.0 0.0 - 0.1 [facility] x10(3)/[facility] LABORATORY Immature Gran % 0.60 % [facility] [...] Organization Address City/State/Z[place] [address] (ABNORMAL) Hemogram (08/10/2017 2:30 PM EST) Analysis Performed At Patho logist Time Signature WBC 11.3 (H) 4.0 - 9.5 [facility] x10(3)/[facility] LABORATORY RBC 3.13 (L) 4.58 - [facility] 5.54 [facility] x10(6)/[facility] LABORATORY Hemoglobin 8.9 (L) 13.7 - [facility] 16.5 gm/dL [facility] LABOR[facility]ORY Hematocrit 28.4 (L) 40.5 - [facility] 48.5 % [facility] MCV 90.7 82.9 - [facility]1 [facility] LABORATORY MCH 28.4 27.5 - [facility] 32.1 pg [facility]ATORY MCHC 31.3 (L) 32.0 [facility] gm/dL [facility] Platelets 213 145 - 357 [facility] x10(3)/[facility] LABORATORY RDWSD 53.7 (H) 36.0 - [facility] RYAN 45.0 [facility] LABORATORY RDWCV 16.4 (H) 11.4 - [facility] RYAN 13.8 % [facility] LABORATORY MPV 8.9 7.6 - 12.9 [facility] LABORATORY nRBC % Auto 0.0 % [facility] LABORATORY nRBC Abs Auto 0.000 0.000 - [facility] RYAN 0.000 [facility] x10(3)/[facility] LABORATORY Specimen Anatomical Collection Method Collection Time Receive d Time (Source) Location / / Volume Laterality Blood specimen 08/10/2017 2:30 PM 018 2:48 (specimen) EST PM EST Resulting Agency Comment Spec In Lab Yonathan Smith MD HEMATOLOGY ORDERABLES Performing Organization Address City/State/ZIP Code Phon e Number [address] (ABNORMAL) POCT Glucose (08/10/2017 1:50 PM EST) athologist Signature POC Glucose 243 (H) 65 - 199 [facility] Comment: Supplemental ranges: <140 mg/dL before meals <180 mg/dL all other times of the day Specimen Anatomical Collection Method Collection Time Receive d Time (Source) Location / / Volume Laterality Blood specimen 08/10/2017 1:50 PM 018 1:50 (specimen) EST PM EST Yonathan Smith MD POINT OF CARE TEST ORDERABLE S Performing Organization Address City/[facility]/ZIP Code Phon e Number [address] POCT Glucose (08/10/2017 11:21 AM EST) athologist Signature POC Glucose 156 65 - 199 [facility]dL [facility] Comment: Supplemental ranges: <140 mg/dL before meals <180 mg/dL all other times of the day Specimen Anatomical Collection Method Collection Time Receive d Time (Source) Location / / Volume Laterality Blood specimen 08/10/2017 11:21 8 (specimen) AM EST 11:21 AM EST Yonathan Smith MD POINT OF CARE TEST ORDERABLE S Performing Organization Address City/[facility]/[place] [address] (ABNORMAL) Differential, Automated (08/10/2017 10:28 AM EST) [facility] Method Time Signature Neutrophils % 85.3 % [facility] LABORATORY Neutr Abs (ANC) 9.43 (H) 1.70 - [facility] 6.10 [facility] x10(3)/[facility] L LABORATORY Lymphocytes % 5.5 % [facility] LABORATORY Lymphocytes Abs 0.6 (L) 0.9 - 3.2 [facility] x10(3)/[facility] LABORATORY Monocytes % 5.9 % [facility] LABORATORY Monocyte Abs 0.6 0.3 - 0.9 [facility] x10(3)/[facility] LABORATORY Eosinophils % 2.1 % [facility] LABORATORY Eosinophils Abs 0.2 0.0 - 0.4 [facility] x10(3)/[facility] LABORATORY Basophils % 0.4 % [facility] LABORATORY Basophils Abs 0.0 0.0 - 0.1 [facility] x10(3)/[facility] LABORATORY Immature Gran % 0.80 % [facility] [...] Organization Address City/State/[place] [address] (ABNORMAL) Hemogram (08/10/2017 10:28 AM EST) Analysis Performed At Patho logist Time Signature WBC 11.0 (H) 4.0 - 9.5 [facility] x10(3)/[facility] LABORATORY RBC 3.02 (L) 4.58 - [facility] 5.54 [facility] x10(6)/[facility] LABORATORY Hemoglobin 8.8 (L) 13.7 [facility] gm/dL [facility] LABORATORY Hematocrit 28.1 (L) 40.5 - [facility] 48.5 % [facility] LABORATORY MCV 93.0 82.9 [facility] MCH 29.1 27.5 - [facility]BAR[facility] DAVIS 32.1 pg [facility] MCHC 31.3 (L) 32.0 - BARBAR[facility] DAVIS 35.7 gm/dL [facility] Platelets 207 145 - 357 [facility] x10(3)/[facility] LABORATORY RDWSD 55.3 (H) 36.0 - [place] RYAN 45.0 [facility] RDWCV 16.4 (H) 11.4 - [facility] RYAN 13.8 % [facility] MPV 9.0 7.6 - 12.9 [facility] LABORATORY nRBC % Auto 0.0 % [facility] nRBC Abs Auto 0.000 0.000 - [facility] RYAN 0.000 [facility] x10(3)/[facility] LABORATORY Specimen Anatomical Collection Method Collection Time Receive d Time (Source) Location / / Volume Laterality Blood specimen 08/10/2017 10:28 8 (specimen) AM EST 10:35 AM EST Resulting Agency Comment Spec In Lab Yonathan Smith MD HEMATOLOGY ORDERABLES Performing Organization Address City/State/[place] [address] VS Angiogram/intervention (vascular) (08/10/2017 [...] 2.5x80 5. Completion RLE angiogram 6. L BUCKLE INSPECTOR angiogram 7. 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 L BUCKLE INSPECTOR access in the distal L BUCKLE INSPECTOR. - Closure device: Mynx Technical Procedure: ?The [...] for a 45cm 5F Destination. V18 and [employer] a nd QuickCross catheters were used to [...] bifurcation. Access appeared in the distal R BUCKLE INSPECTOR. Closure and sheath removal was performed with [...] 2.5x80 5. Completion RLE angiogram 6. L BUCKLE INSPECTOR angiogram 7. 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 L BUCKLE INSPECTOR access in the distal L BUCKLE INSPECTOR. - Closure device: Mynx Technical Procedure: The [...] for a 45cm 5F Destination. V18 and [employer] a nd QuickCross catheters were used to [...] bifurcation. Access appeared in the distal R BUCKLE INSPECTOR. Closure and sheath removal was performed with [...] (ABNORMAL) Differential, Automated (08/10/2017 5:50 AM EST) [facility] gist Method Time Signature Neutrophils % 80.1 % [facility] Neutr Abs (ANC) 9.01 (H) 1.70 - [facility] 6.10 [facility] x10(3)/[facility] LABORATORY Lymphocytes % 8.8 % [facility] Lymphocytes Abs 1.0 0.9 - 3.2 [facility] x10(3)/[facility] LABORATORY Monocytes % 8.3 % [facility] Monocyte Abs 0.9 0.3 - 0.9 [facility] x10(3)/[facility] LABORATORY Eosinophils % 2.0 % [facility] Eosinophils Abs 0.2 0.0 - 0.4 [facility] x10(3)/[facility] LABORATORY Basophils % 0.4 % [facility] Basophils Abs 0.0 0.0 - 0.1 [facility] x10(3)/[facility] LABORATORY Immature Gran % 0.40 % [facility] [...] Organization Address City/State/[place] [address] (ABNORMAL) Hemogram (08/10/2017 5:50 AM EST) Analysis Performed At Patho logist Time Signature WBC 11.3 (H) 4.0 - 9.5 [facility] x10(3)/[facility] LABORATORY RBC 3.15 (L) 4.58 - [facility] 5.54 [facility] x10(6)/[facility] LABORATORY Hemoglobin 8.9 (L) 13.7 [facility]dL [facility] Hematocrit 29.0 (L) 40.5 - [facility] 48.5 % [facility] MCV 92.1 82.9 - [facility] 93.1 [facility] LABORATORY MCH 28.3 27.5 - [facility] RYAN 32.1 pg [facility] MCHC 30.7 (L) 32.0 - [facility] 35.7 gm/dL [facility] Platelets 231 145 - 357 [facility] x10(3)/[facility] LABORATORY RDWSD 53.9 (H) 36.0 - [facility] RYAN 45.0 [facility] LABORATORY RDWCV 16.2 (H) 11.4 - [facility] RYAN 13.8 % [facility] MPV 8.7 7.6 - 12.9 [facility] LABORATORY nRBC % Auto 0.0 % [facility] nRBC Abs Auto 0.000 0.000 - [facility] 0.000 [facility] x10(3)/[facility] LABORATORY Specimen Anatomical Collection Method Collection Time Receive d Time (Source) Location / / Volume Laterality Blood specimen 08/10/2017 5:50 AM 018 5:59 (specimen) EST AM EST Resulting Agency Comment Spec In Lab Yonathan Smith MD HEMATOLOGY ORDERABLES Performing Organization Address City/State/[place] [address] (ABNORMAL) Basic Metabolic Panel (non-fasting) (08/10/2017 5:50 AM EST) athologist Signature Glucose Lvl 135 65 - 199 [facility] mg/dL [facility] Comment: [...] or in patients with acute kidney failure. [email or web address]/DHnkdep [email or web address]/DHMCnkf Specimen Anatomical Collection Method Collection Time Receive d Time (Source) Location / / Volume Laterality Blood specimen 08/10/2017 5:50 AM 018 5:59 (specimen) EST AM EST Resulting Agency Comment Spec In Lab Yonathan Smith MD CHEMISTRY ORDERABLES Performing Organization Address City/[facility]/[place] [address] (ABNORMAL) Prothrombin Time (08/10/2017 [...] Smith MD HEMATOLOGY ORDERABLES Performing Organization Address City/[facility]/[place] [address] (ABNORMAL) POCT Glucose (08/10/2017 4:01 AM EST) athologist Signature POC Glucose 206 (H) 65 - 199 [facility] mg/dL [facility] Comment: Supplemental ranges: <140 mg/dL before meals <180 mg/dL all other times of the day Specimen Anatomical Collection Method Collection Time Receive d Time (Source) Location / / Volume Laterality Blood specimen 08/10/2017 4:01 AM 018 4:01 (specimen) EST AM EST Yonathan Smith MD POINT OF CARE TEST ORDERABLE S Performing Organization Address City/[facility]/ZIP Code [place] [address] POCT Glucose (08/10/2017 2:01 AM EST) athologist Signature POC Glucose 188 65 - 199 [place] [facility] mg/dL [facility] Comment: Supplemental ranges: <140 mg/dL before meals <180 mg/dL all other times of the day Specimen Anatomical Collection Method Collection Time Receive d Time (Source) Location / / Volume Laterality Blood specimen 08/10/2017 2:01 AM 018 2:01 (specimen) EST AM EST Yonathan Smith MD POINT OF CARE TEST ORDERABLE S Performing Organization Address City/State/[place] [address] (ABNORMAL) POCT Glucose (08/09/2017 11:42 PM EST) athologist Signature POC Glucose 283 (H) 65 - 199 [facility]dL [facility] Comment: Supplemental ranges: <140 mg/dL before meals <180 mg/dL all other times of the day Specimen Anatomical Collection Method Collection Time Receive d Time (Source) Location / / Volume Laterality Blood specimen 08/09/2017 11:42 8 (specimen) PM EST 11:42 PM EST Yonathan Smith MD POINT OF CARE TEST ORDERABLE S Performing Organization Address City/State/[place] [address] POCT Glucose (08/09/2017 8:55 PM EST) athologist Signature POC Glucose 182 65 - 199 [facility] mg/dL [facility] Comment: Supplemental ranges: <140 mg/dL before meals <180 mg/dL all other times of the day Specimen Anatomical Collection Method Collection Time Receive d Time (Source) Location / / Volume Laterality Blood specimen 08/09/2017 8:55 PM 018 8:55 (specimen) EST PM EST Yonathan Smith MD POINT OF CARE TEST ORDERABLE S Performing Organization Address City/State/[place] [address] (ABNORMAL) APTT (08/09/2017 6:42 PM EST) athologist Signature PTT 90 (H) 25 - 35 sec [facility] Comment: The recommended therapeutic range for fu ll dose, unfractionated heparin at [facility] is 80 ? 114 seconds. The use [...] Smith MD HEMATOLOGY ORDERABLES Performing Organization Address City/[facility]/ZIP [facility] Phon e Number [address] POCT Glucose (08/09/2017 4:41 PM EST) athologist Signature POC Glucose 195 65 - 199 [facility] mg/dL [facility] Comment: Supplemental ranges: <140 mg/dL before meals <180 mg/dL all other times of the day Specimen Anatomical Collection Method Collection Time Receive d Time (Source) Location / / Volume Laterality Blood specimen 08/09/2017 4:41 PM 018 4:41 (specimen) EST PM EST Yonathan Smith MD POINT OF CARE TEST ORDERABLE S Performing Organization Address City/[facility]/[place] [address] POCT Glucose (08/09/2017 12:29 PM EST) athologist Signature POC Glucose 140 65 - 199 [facility] mg/dL [facility] Comment: Supplemental ranges: <140 mg/dL before meals <180 mg/dL all other times of the day Specimen Anatomical Collection Method Collection Time Receive d Time (Source) Location / / Volume Laterality Blood specimen 08/09/2017 12:29 8 (specimen) PM EST 12:29 PM EST Yonathan Smith MD POINT OF CARE TEST ORDERABLE S Performing Organization Address City/State/[place] [address] POCT Glucose (08/09/2017 9:59 AM EST) P athologist Signature POC Glucose 135 65 - 199 [facility] mg/dL [facility] Comment: Supplemental ranges: <140 mg/dL before meals <180 mg/dL all other times of the day Specimen Anatomical Collection Method Collection Time Receive d Time (Source) Location / / Volume Laterality Blood specimen 08/09/2017 9:59 AM 018 9:59 (specimen) EST AM EST Yonathan Smith MD POINT OF CARE TEST ORDERABLE S Performing Organization Address City/[facility]/[place] [address] Specimen to Pathology (08/09/2017 8:41 AM EST) Specimen Anatomical Collection Method Collection Time Receive d Time (Source) Location / / Volume Laterality AP Specimen 08/09/2017 8:41 AM 8 8:41 EST AM EST Narrative [facility] - 08/09/2017 8:41 AM EST Specimen requisition ordered. ??Separate Pathology report to follow Yonathan Smith MD PATHOLOGY/CYTOLOGY ORDERABLE S Performing Organization Address City/[facility]/[place] [address] Surgical Pathology Report (08/09/2017 8:40 AM EST) Component Value Ref Test Analysis Performed At Patholo gist Range Method Time Signature Surgical [id number] ? Location: [facility]; [facility]; A [facility] Report The signing pathologist has [...] Verified: ??08/13/2017 ?Pathologist Performed at: ??-[facility] Dept. of Pathology, [place], [place] CLINICAL INFORMATION Specimen Submitted: A - [...] Organization Address City/State/ZIP [place] [address] Anaerobic Culture (08/09/2017 8:30 AM EST) [facility] gist Method Time Signature Anaerobic No anaerobic [facility] Culture organisms [facility] LABORATORY Specimen Anatomical Collection Method Collection [...] Organization Address City/State/[place] [address] (ABNORMAL) Abscess/Wound Aspirate Culture (08/09/2017 8:30 AM EST) Patholo gist Method Time Signature Abscess/Wound Moderate mixed [place] Aspirate bacterial POYNETTE Culture morphotypes [facility] normal LABORATORY cutaneous leroy (A) Gram Stain Rare White Blood Cells [place] Few Gram Positive Cocci in pairs POY[place]TE () [facility] Organism Gram Positive [place] Cocci in pairs POYNETTE () [facility] Specimen Anatomical Collection [...] - GENERAL ORDER ROBSON Performing Organization Address City/[facility]/ZIP Code Phon e Number [address] POCT Glucose (08/09/2017 4:28 AM EST) P athologist Signature POC Glucose 128 65 - 199 [facility] mg/dL [facility] Comment: Supplemental ranges: <140 mg/dL before meals <180 mg/dL all other times of the day Specimen Anatomical Collection Method Collection Time Receive d Time (Source) Location / / Volume Laterality Blood specimen 08/09/2017 4:28 AM 018 4:28 (specimen) EST AM EST Yonathan Smith MD POINT OF CARE TEST ORDERABLE S Performing Organization Address City/[facility]/[place] [address] ABORH Recheck Status (08/09/2017 1:10 AM EST) [facility] gist Method Time Signature ABORH Type Completed [facility] LABORATORY Specimen Anatomical Collection Method Collection Time Receive d Time (Source) Location / / Volume Laterality Blood specimen 08/09/2017 1:10 AM 018 1:35 (specimen) EST AM EST Resulting Agency Comment Spec In Lab Yonathan Smith MD BLOOD BANK ORDERABLES Performing Organization Address City/[facility]/[place] [address] Antibody screen (08/09/2017 1:10 AM EST) [facility] Method Time Signature Ab Screen Negative [facility] LABORATORY Expires at 08/12/2017 [facility] [id number] on: [facility] Specimen Anatomical Collection Method Collection Time Receive d Time (Source) Location / / Volume Laterality Blood specimen 08/09/2017 1:10 AM 018 1:35 (specimen) EST AM EST Resulting Agency Comment Spec In Lab Yonathan Smith MD BLOOD BANK ORDERABLES Performing Organization Address City/[facility]/[place] [address] ABO/Rh Typing (08/09/2017 1:10 [...] Address City/[facility]/[place] [address] (ABNORMAL) APTT (08/09/2017 1:10 AM EST) P athologist Signature PTT 86 (H) 25 - 35 sec [facility] Comment: The recommended therapeutic range for fu ll dose, unfractionated heparin at [facility] is 80 ? 114 seconds. The use [...] Organization Address City/State/[place] [address] (ABNORMAL) Differential, Automated (08/09/2017 1:10 AM EST) [facility] gist Method Time Signature Neutrophils % 76.2 % [facility] Neutr Abs (ANC) 8.59 (H) 1.70 - [facility] 6.10 [facility] x10(3)/[facility] LABORATORY Lymphocytes % 11.0 % [facility] Lymphocytes Abs 1.2 0.9 - 3.2 [facility] x10(3)/[facility] LABORATORY Monocytes % 8.4 % [facility] Monocyte Abs 1.0 (H) 0.3 - 0.9 [facility] x10(3)/[facility] LABORATORY Eosinophils % 3.5 % [facility] Eosinophils Abs 0.4 0.0 - 0.4 [facility] x10(3)/[facility] LABORATORY Basophils % 0.5 % [facility] Basophils Abs 0.1 0.0 - 0.1 [facility] x10(3)/[facility] LABORATORY Immature Gran % 0.40 % [facility] [...] Organization Address City/State/[place] [address] (ABNORMAL) Hemogram (08/09/2017 1:10 AM EST) Analysis Performed At Patho logist Time Signature WBC 11.3 (H) 4.0 - 9.5 [facility] x10(3)/[facility] LABORATORY RBC 3.47 (L) 4.58 - [facility] 5.54 [facility] x10(6)/[facility] LABORATORY Hemoglobin 10.0 (L) 13.7 - [facility] 16.5 gm/dL [facility] Hematocrit 31.9 (L) 40.5 - [facility] 48.5 % [facility] MCV 91.9 82.9 - [facility] 93.1 [facility] LABORATORY MCH 28.8 27.5 - [facility] 32.1 pg [facility] MCHC 31.3 (L) 32.0 - [facility] 35.7 gm/dL [facility] Platelets 234 145 - 357 [facility] x10(3)/[facility] LABORATORY RDWSD 54.0 (H) 36.0 - [facility] 45.0 [facility] LABORATORY RDWCV 16.2 (H) 11.4 - [facility] RYAN 13.8 % [facility] LABORATORY MPV 8.7 7.6 - 12.9 [facility] LABORATORY nRBC % Auto 0.0 % [facility] nRBC Abs Auto 0.000 0.000 - [facility] RYAN 0.000 [facility] x10(3)/[facility] LABORATORY Specimen Anatomical Collection Method Collection Time Receive d Time (Source) Location / / Volume Laterality Blood specimen 08/09/2017 1:10 AM 018 1:19 (specimen) EST AM EST Resulting Agency Comment Spec In Lab Yonathan Smith MD HEMATOLOGY ORDERABLES Performing Organization Address City/State/[place] [address] (ABNORMAL) Prothrombin Time (08/09/2017 [...] City/State/ZIP Code Phon e Number [place] [id number] (ABNORMAL) Basic Metabolic Panel (non-fasting) (08/09/2017 1:10 AM EST) athologist Signature Glucose Lvl 108 65 - 199 [facility] mg/dL [facility] Comment: Diabetes: >=200 mg/dL plus symp toms BUN 34 (H) 10 - 20 mg/dL [facility] LABOR[facility]ORY Creatinine 1.54 (H) 0.80 - 1.50 mg/dL [facility] LABORATORY Sodium 138 135 - 145 mmol/L [facility] Calcium 8.3 (L) 8.5 - 10.5 mg/dL [facility] LABORATORY Estimated GFR 45 (L) >=60 [facility] Comment: The reported eGFR should be multiplied b y 1.2 for patients. The MDRD is not an appropriate measure o f renal function for patients with body mass extremes or in patients with acute kidney failure. http://[employer]/DHnkdep http://[employer]/DHnkf Specimen Anatomical Collection Method Collection Time Receive d Time (Source) Location / / Volume Laterality Blood specimen 08/09/2017 1:10 AM 018 1:19 (specimen) EST AM EST Resulting Agency Comment Spec In Lab Yonathan Smith MD CHEMISTRY ORDERABLES Performing Organization Address City/[facility]/ZIP Code Phon e Number [address] POCT Glucose (08/09/2017 12:05 AM EST) athologist Signature POC Glucose 128 65 - [address] [facility]dL [facility] Comment: Supplemental ranges: <140 mg/dL before meals <180 mg/dL all other times of the day Specimen Anatomical Collection Method Collection Time Receive d Time (Source) Location / / Volume Laterality Blood specimen 08/09/2017 12:05 8 (specimen) AM EST 12:05 AM EST Yonathan Smith MD POINT OF CARE TEST ORDERABLE S Performing Organization Address City/[facility]/[place] [address] (ABNORMAL) POCT Glucose (08/08/2017 7:36 PM EST) athologist Signature POC Glucose 215 (H) 65 - 199 [facility] mg/dL [facility] Comment: Supplemental ranges: <140 mg/dL before meals <180 mg/dL all other times of the day Specimen Anatomical Collection Method Collection Time Receive d Time (Source) Location / / Volume Laterality Blood specimen 08/08/2017 7:36 PM 018 7:36 (specimen) EST PM EST Yonathan Smith MD POINT OF CARE TEST ORDERABLE S Performing Organization Address City/[facility]/[place] [address] (ABNORMAL) POCT Glucose (08/08/2017 6:23 PM EST) athologist Signature POC Glucose 216 (H) 65 - 199 [facility] mg/dL [facility] Comment: Supplemental ranges: <140 mg/dL before meals <180 mg/dL all other times of the day Specimen Anatomical Collection Method Collection Time Receive d Time (Source) Location / / Volume Laterality Blood specimen 08/08/2017 6:23 PM 018 6:23 (specimen) EST PM EST Yonathan Smith MD POINT OF CARE TEST ORDERABLE S Performing Organization Address [facility]/[place] [address] (ABNORMAL) APTT (08/08/2017 6:00 PM EST) athologist Signature PTT 97 (H) 25 - 35 sec [facility] Comment: The recommended therapeutic range for fu ll dose, unfractionated heparin at [facility] is 80 ? 114 seconds. The use [...] Smith MD HEMATOLOGY ORDERABLES Performing Organization Address City/[facility]/[place] [address] POCT Glucose (08/08/2017 4:42 PM EST) athologist Signature POC Glucose 78 65 - 199 [facility] mg/dL [facility] Comment: Supplemental ranges: <140 mg/dL before meals <180 mg/dL all other times of the day Specimen Anatomical Collection Method Collection Time Receive d Time (Source) Location / / Volume Laterality Blood specimen 08/08/2017 4:42 PM 018 4:42 (specimen) EST PM EST Yonathan Smith MD POINT OF CARE TEST ORDERABLE S Performing Organization Address City/State/[place] [address] (ABNORMAL) POCT Glucose (08/08/2017 4:01 PM EST) P athologist Signature POC Glucose 58 (L) 65 - 199 [facility] mg/dL [facility] Comment: Supplemental ranges: <140 mg/dL before meals <180 mg/dL all other times of the day Specimen Anatomical Collection Method Collection Time Receive d Time (Source) Location / / Volume Laterality Blood specimen 08/08/2017 4:01 PM 018 4:01 (specimen) EST PM EST Yonathan Smith MD POINT OF CARE TEST ORDERABLE S Performing Organization Address City/State/[place] [address] POCT Glucose (08/08/2017 11:51 AM EST) P athologist Signature POC Glucose 90 65 - 199 [facility] mg/dL [facility] Comment: Supplemental ranges: <140 mg/dL before meals <180 mg/dL all other times of the day Specimen Anatomical Collection Method Collection Time Receive d Time (Source) Location / / Volume Laterality Blood specimen 08/08/2017 11:51 8 (specimen) AM EST 11:51 AM EST Yonathan Smith MD POINT OF CARE TEST ORDERABLE S Performing Organization Address City/State/ZIP Code Phon e Number [address] (ABNORMAL) APTT (08/08/2017 10:27 AM EST) P athologist Signature PTT 64 (H) 25 - 35 sec [facility] Comment: The recommended therapeutic range for fu ll dose, unfractionated heparin at [facility] is 80 ? 114 seconds. The use [...] Smith MD HEMATOLOGY ORDERABLES Performing Organization Address City/[facility]/ZIP Code Phon e Number [address] POCT Glucose (08/08/2017 8:02 AM EST) athologist Signature POC Glucose 178 65 - 199 [facility] mg/dL [facility] Comment: Supplemental ranges: <140 mg/dL before meals <180 mg/dL all other times of the day Specimen Anatomical Collection Method Collection Time Receive d Time (Source) Location / / Volume Laterality Blood specimen 08/08/2017 8:02 AM 018 8:02 (specimen) EST AM EST Yonathan Smith MD POINT OF CARE TEST ORDERABLE S Performing Organization Address City/[facility]/[place] [address] (ABNORMAL) APTT (08/08/2017 4:51 AM EST) athologist Signature PTT >160 25 - 35 [facility] (Critical) sec [facility] Comment: Called by: HOWARD, Read back by: Melba Jaramillo, Date/Time:08/08/17 05:43. The recommended therapeutic range for fu ll dose, unfractionated heparin at [facility] is 80 ? 114 seconds. The use [...] Address City/State/ZIP Code [place] [address] (ABNORMAL) Differential, Automated (08/08/2017 4:51 AM EST) [facility] Method Time Signature Neutrophils % 77.9 % [facility] Neutr Abs (ANC) 8.17 (H) 1.70 - [facility] 6.10 [facility] x10(3)/[facility] LABORATORY Lymphocytes % 10.3 % [facility] Lymphocytes Abs 1.1 0.9 - 3.2 [facility] x10(3)/[facility] LABORATORY Monocytes % 7.0 % [facility]ORY Monocyte Abs 0.7 0.3 - 0.9 [facility] x10(3)/[facility] LABORATORY Eosinophils % 3.6 % [facility] Eosinophils Abs 0.4 0.0 - 0.4 [facility] x10(3)/[facility] LABORATORY Basophils % 0.5 % [facility]ORY Basophils Abs 0.0 0.0 - 0.1 [facility] x10(3)/[facility] LABORATORY Immature Gran % 0.70 % [facility] [...] Organization Address City/State/Z[place] [address] (ABNORMAL) Hemogram (08/08/2017 4:51 AM EST) Analysis Performed At Patho logist Time Signature WBC 10.5 (H) 4.0 - 9.5 [facility] x10(3)/[facility] LABORATORY RBC 3.27 (L) 4.58 - [place] [facility] 5.54 [facility] x10(6)/[facility] LABORATORY Hemoglobin 9.3 (L) 13.7 - [facility] 16.5 gm/dL [facility]ORY Hematocrit 30.3 (L) 40.5 - [facility] 48.5 % [facility]ORATORY MCV 92.7 82.9 - [facility] 93.1 [facility] LABORATORY MCH 28.4 27.5 - [place] [facility] 32.1 pg [facility] MCHC 30.7 (L) 32.0 - [facility] RYAN 35.7 gm/dL [facility] Platelets 252 145 - 357 [facility] x10(3)/[facility] [facility] LABORATORY RDWSD 54.6 (H) 36.0 - [facility] LABORATORY RDWCV 16.2 (H) 11.4 - [facility] RYAN 13.8 % [facility] LABORATORY MPV 9.1 7.6 - 12.9 [facility] LABORATORY nRBC % Auto 0.0 % [facility] LABORATORY nRBC Abs Auto 0.000 0.000 - [facility] RYAN 0.000 [facility] x10(3)/[facility] LABORATORY Specimen Anatomical Collection Method Collection Time Receive d Time (Source) Location / / Volume Laterality Blood specimen 08/08/2017 4:51 AM 018 5:14 (specimen) EST AM EST Resulting Agency Comment Spec In Lab Yonathan Smith MD HEMATOLOGY ORDERABLES Performing Organization Address City/State/ZIP Code Phon e Number [place] [id number] HOSPITAL LABORATORY Drive (ABNORMAL) Prothrombin Time (08/08/2017 [...] Organization Address City/State/[place] [address] (ABNORMAL) Basic Metabolic Panel (non-fasting) (08/08/2017 4:51 AM EST) athologist Signature Glucose Lvl 229 (H) 65 - 199 [facility] mg/dL [facility] LABORATORY Comment: [...] Calcium 7.9 (L) 8.5 - 10.5 mg/dL [facility] LABORATORY Estimated GFR 44 (L) >=60 [facility] LABORATORY Comment: The reported eGFR should be multiplied b y 1.2 for patients. The MDRD is not an appropriate measure o f renal function for patients with body mass extremes or in patients with acute kidney failure. http://[employer]/DHnkdep http://[employer]/DHMCnkf Specimen Anatomical Collection Method Collection Time Receive d Time (Source) Location / / Volume Laterality Blood specimen 08/08/2017 4:51 AM 018 5:14 (specimen) EST AM EST Resulting Agency Comment Spec In Lab Yonathan Smith MD CHEMISTRY ORDERABLES Performing Organization Address City/[facility] Phon e Number [address] POCT Glucose (08/08/2017 4:20 AM EST) athologist Signature POC Glucose 193 65 - 199 [facility] mg/dL [facility] LABORATORY Comment: Supplemental ranges: <140 mg/dL before meals <180 mg/dL all other times of the day Specimen Anatomical Collection Method Collection Time Receive d Time (Source) Location / / Volume Laterality Blood specimen 08/08/2017 4:20 AM 018 4:20 (specimen) EST AM EST Yonathan Smith MD POINT OF CARE TEST ORDERABLE S Performing Organization Address City/[facility]/ZIP Code Phon e Number [address] POCT Glucose (08/07/2017 11:11 PM EST) P athologist Signature POC Glucose 124 65 - 199 [facility] mg/dL [facility] LABORATORY Comment: Supplemental ranges: <140 mg/dL before meals <180 mg/dL all other times of the day Specimen Anatomical Collection Method Collection Time Receive d Time (Source) Location / / Volume Laterality Blood specimen 08/07/2017 11:11 8 (specimen) PM EST 11:11 PM EST Yonathan Smith MD POINT OF CARE TEST ORDERABLE S Performing Organization Address City/[facility]/[place] [address] (ABNORMAL) APTT (08/07/2017 10:18 PM EST) athologist Signature PTT 114 (H) 25 - 35 sec [facility] LABORATORY Comment: The recommended therapeutic range for fu ll dose, unfractionated heparin [place] [facility] is 80 ? 114 seconds. The use [...] Smith MD HEMATOLOGY ORDERABLES Performing Organization Address [facility]/[place] [address] POCT Glucose (08/07/2017 8:10 PM EST) athologist Signature POC Glucose 140 65 - 199 [facility] mg/dL [facility] LABORATORY Comment: Supplemental ranges: <140 mg/dL before meals <180 mg/dL all other times of the day Specimen Anatomical Collection Method Collection Time Receive d Time (Source) Location / / Volume Laterality Blood specimen 08/07/2017 8:10 PM 018 8:10 (specimen) EST PM EST Yonathan Smith MD POINT OF CARE TEST ORDERABLE S Performing Organization Address City/[facility]/ZIP Code Phon e Number [address] POCT Glucose (08/07/2017 5:27 PM EST) athologist Signature POC Glucose 187 65 - 199 [facility] mg/dL [facility] LABORATORY Comment: Supplemental ranges: <140 mg/dL before meals <180 mg/dL all other times of the day Specimen Anatomical Collection Method Collection Time Receive d Time (Source) Location / / Volume Laterality Blood specimen 08/07/2017 5:27 PM 018 5:27 (specimen) EST PM EST Yonathan Smith MD POINT OF CARE TEST ORDERABLE S Performing Organization Address City/[facility]/ZIP Code Phon e Number [address] POCT Glucose (08/07/2017 3:29 PM EST) athologist Signature POC Glucose 86 65 - 199 [facility] mg/dL [facility] LABORATORY Comment: Supplemental ranges: <140 mg/dL before meals <180 mg/dL all other times of the day Specimen Anatomical Collection Method Collection Time Receive d Time (Source) Location / / Volume Laterality Blood specimen 08/07/2017 3:29 PM 018 3:29 (specimen) EST PM EST Yonathan Smith MD POINT OF CARE TEST ORDERABLE S Performing Organization Address [facility] [place] [address] (ABNORMAL) APTT (08/07/2017 2:50 PM EST) athologist Signature PTT 60 (H) 25 - 35 sec [facility] LABORATORY Comment: The recommended therapeutic range for fu ll dose, unfractionated heparin at [facility] is 80 ? 114 seconds. The use [...] Smith MD HEMATOLOGY ORDERABLES Performing Organization Address City/[facility]/ZIP [facility] [place] [address] (ABNORMAL) POCT Glucose (08/07/2017 2:23 PM EST) athologist Signature POC Glucose 55 (L) 65 - 199 [facility] mg/dL [facility] LABORATORY Comment: Supplemental ranges: <140 mg/dL before meals <180 mg/dL all other times of the day Specimen Anatomical Collection Method Collection Time Receive d Time (Source) Location / / Volume Laterality Blood specimen 08/07/2017 2:23 PM 018 2:23 (specimen) EST PM EST Yonathan Smith MD POINT OF CARE TEST ORDERABLE S Performing Organization Address City/State/ZIP Code Phon e Number [address] POCT Glucose (08/07/2017 12:08 PM EST) P athologist Signature POC Glucose 77 65 - 199 [facility] mg/dL [facility] LABORATORY Comment: Supplemental ranges: <140 mg/dL before meals <180 mg/dL all other times of the day Specimen Anatomical Collection Method Collection Time Receive d Time (Source) Location / / Volume Laterality Blood specimen 08/07/2017 12:08 8 (specimen) PM EST 12:08 PM EST Yonathan Smith MD POINT OF CARE TEST ORDERABLE S Performing Organization Address City/State/[place] [address] (ABNORMAL) Differential, Automated (08/07/2017 7:30 AM EST) Patholo gist Method Time Signature Neutrophils % 73.8 % [facility] LABORATORY Neutr Abs (ANC) 7.17 (H) 1.70 - [facility] 6.10 [facility] x10(3)/[facility] LABORATORY Lymphocytes % 12.2 % [facility] LABORATORY Lymphocytes Abs 1.2 0.9 - 3.2 [facility] x10(3)/[facility] LABORATORY Monocytes % 9.0 % [facility] LABORATORY Monocyte Abs 0.9 0.3 - 0.9 [facility] x10(3)/[facility] LABORATORY Eosinophils % 3.9 % [facility] LABORATORY Eosinophils Abs 0.4 0.0 - 0.4 [facility] x10(3)/[facility] LABORATORY Basophils % 0.6 % [facility] LABORATORY Basophils Abs 0.1 0.0 - 0.1 [facility] x10(3)/[facility] LABORATORY Immature Gran % 0.50 % [facility] [...] Organization Address City/State/[place] [address] (ABNORMAL) Hemogram (08/07/2017 7:30 AM EST) Analysis Performed At Patho logist Time Signature WBC 9.7 (H) 4.0 - 9.5 [facility] x10(3)/[facility] LABORATORY RBC 3.54 (L) 4.58 [facility] 5.54 [facility] x10(6)/[facility] LABORATORY Hemoglobin 9.9 (L) 13.7 - [facility] 16.5 gm/dL [facility] LABORATORY Hematocrit 32.3 (L) 40.5 - [facility] 48.5 % [facility] LABORATORY MCV 91.2 82.9 - [facility] 93.1 [facility] LABORATORY MCH 28.0 27.5 - [facility] RYAN 32.1 pg [facility] LABORATORY MCHC 30.7 (L) 32.0 - [facility] 35.7 gm/dL [facility] LABORATORY Platelets 312 145 - 357 [facility] x10(3)/[facility] LABORATORY RDWSD 53.2 (H) 36.0 - [facility] 45.0 [facility] RDWCV 16.0 (H) 11.4 - [facility] RYAN 13.8 % [facility] LABORATORY MPV 8.9 7.6 - 12.9 [facility] LABORATORY nRBC % Auto 0.0 % [facility] LABORATORY nRBC Abs Auto 0.000 0.000 - [facility] 0.000 [facility] x10(3)/[facility] LABORATORY Specimen Anatomical Collection Method Collection Time Receive d Time (Source) Location / / Volume Laterality Blood specimen 08/07/2017 7:30 AM 018 7:45 (specimen) EST AM EST Resulting Agency Comment Spec In Lab Yonathan Smith MD HEMATOLOGY ORDERABLES Performing Organization Address City/State/[place] [address] (ABNORMAL) Basic Metabolic Panel (non-fasting) (08/07/2017 7:30 AM EST) P athologist Signature Glucose Lvl 80 65 - 199 [facility] mg/dL [facility] LABORATORY Comment: [...] mg/dL [facility] LABORATORY Estimated GFR 59 (L) >=60 [facility] LABORATORY Comment: The reported eGFR should be multiplied b y 1.2 for patients. The MDRD is not an appropriate measure o f renal function for patients with body mass extremes or in patients with acute kidney failure. http://tinyurl.niiu/DHnkdep http://[employer].com/DHMCnkf Specimen Anatomical Collection Method Collection Time Receive d Time (Source) Location / / Volume Laterality Blood specimen 08/07/2017 7:30 AM 018 7:45 (specimen) EST AM EST Resulting Agency Comment Spec In Lab Yonathan Smith MD CHEMISTRY ORDERABLES Performing Organization Address City/[facility]/ZIP Code Phon e Number [address] POCT Glucose (08/07/2017 7:27 AM EST) athologist Signature POC Glucose 81 65 - 199 [facility] mg/dL [facility] LABORATORY Comment: Supplemental ranges: <140 mg/dL before meals <180 mg/dL all other times of the day Specimen Anatomical Collection Method Collection Time Receive d Time (Source) Location / / Volume Laterality Blood specimen 08/07/2017 7:27 AM 018 7:27 (specimen) EST AM EST Yonathan Smith MD POINT OF CARE TEST ORDERABLE S Performing Organization Address City/[facility]/ZIP Code Phon e Number [address] APTT (08/07/2017 7:04 AM EST) athologist Signature PTT 34 25 - 35 sec [facility] LABORATORY Comment: The recommended therapeutic range for fu ll dose, unfractionated heparin [place] [facility] is 80 ? 114 seconds. The use [...] Smith MD HEMATOLOGY ORDERABLES Performing Organization Address City/[facility]/ZIP Code Phon e Number [address] (ABNORMAL) Prothrombin Time (08/07/2017 [...] Address City/State/ZIP Code Phon e Number [address] POCT Glucose (08/07/2017 4:03 AM EST) athologist Signature POC Glucose 93 65 - 199 [facility] mg/dL [facility] LABORATORY Comment: Supplemental ranges: <140 mg/dL before meals <180 mg/dL all other times of the day Specimen Anatomical Collection Method Collection Time Receive d Time (Source) Location / / Volume Laterality Blood specimen 08/07/2017 4:03 AM 018 4:03 (specimen) EST AM EST Yonathan Smith MD POINT OF CARE TEST ORDERABLE S Performing Organization Address City/State/ZIP Code Phon e Number [address] POCT Glucose (08/07/2017 12:04 AM EST) athologist Signature POC Glucose 107 65 - 199 [facility] mg/dL [facility] LABORATORY Comment: Supplemental ranges: <140 mg/dL before meals <180 mg/dL all other times of the day Specimen Anatomical Collection Method Collection Time Receive d Time (Source) Location / / Volume Laterality Blood specimen 08/07/2017 12:04 8 (specimen) AM EST 12:04 AM EST Yonathan Smith MD POINT OF CARE TEST ORDERABLE S Performing Organization Address City/State/ZIP Code Phon e Number [address] POCT Glucose (08/06/2017 7:56 PM EST) P athologist Signature POC Glucose 178 65 - 199 [facility] mg/dL [facility] LABORATORY Comment: Supplemental ranges: <140 mg/dL before meals <180 mg/dL all other times of the day Specimen Anatomical Collection Method Collection Time Receive d Time (Source) Location / / Volume Laterality Blood specimen 08/06/2017 7:56 PM 018 7:56 (specimen) EST PM EST Yonathan Smith MD POINT OF CARE TEST ORDERABLE S Performing Organization Address City/State/ZIP Code Phon e Number [address] TcPO2 (08/06/2017 2:32 PM EST) Component Value Ref Test Analysis Performed At Patholo gist Range Method Time Signature VB Text Department: Vascular Surgery Lab VASCUBASE Report Patient: [id number] (GREGORY HOANG) CPT: [id number] ICD10: I99.8 Referring Physician: YONATHAN SMITH ?? [...] Mcgrath RN) 0157 (Given - Provider: Melba Jaramilol RN)0807 (Given - Provider: Chiquis Mcgrath RN)[phone] [...]
Routine documented in this encounter Care Teams Conduit Reamer Operator Relationship Specialty Start Date End Date Lovely Vicente MD PCP - General 04/16/[address] [place] [address] documented as of this encounter
--- OUTSIDE RECORDS SUMMARY | 2022-04-06 10:41 | XMS_ITS | Encounter Summary ---
:1945 Author Organization [facility] [place] [address] Care Team Providers Name Role Phone Lovely Vicente MD Primary Care Provider Encounter Details Date Type Department Care Team Description 08/02/2017 Telephone Pain Management at [place], [place] [address] Social History Tobacco Use Types Packs/Day [...] Management Center Preauthorization Request Patient: Don Fatima [id number] Fax received from [facility] requesting we obtain prior authorization for Lidocaine patches prescribed by Barbra Soares APRN. RX insurance plan: [employer] insurance telephone: [phone] Patient Diagnosis: right foot pain secondary to PVD and ischemia Previous medications attempted: Tylenol, Tramadol, Dilaudid The following action was taken after discussion with the claims service adjustor: _x_ pharmacy informed Authorized dosage or amount: 5% on patch on for 12 hours, then remove for 12 hours. Angeles Rodrigez, RN documented in this encounter Plan of Treatment Upcoming Encounters Date Type Specialty Care Team Description 05/28/2022 Appointment Cardiology Zulma Dolan MD [facility] [place], [place] [address] (Wo rk) 05/28/2022 Laboratory Appointment Lab 05/28/2022 Office Visit Cardiology Zulma Dolan MD [facility] [place] [address] Liz Poole PA [facility] [place] [address] 06/10/2022 Office Visit Dermatology Laura Scherer MD [facility] [address] [place], [place] [address] (Wo rk) documented as of this encounter Visit Diagnoses Not on filedocumented in this encounter Care Teams Building Maintenance Worker Relationship Specialty Start Date End Date Lovely Vicente MD PCP - General 04/16/[address] [place] [address] documented as of this encounter
--- OUTSIDE RECORDS SUMMARY | 2022-04-06 10:41 | XMS_ITS | Encounter Summary ---
:1945 [place] [address] Care Team Providers Name Role Phone Lovely Vicente MD Primary Care Provider Encounter Details Date Type Department Care Team Description 08/04/2017 Notes Only Pain Management at Barbra Bruno, STACIE [facility] [place] [address] [place] [address] [phone] (Wo rk) Social History Tobacco Use Types [...] bid) at this time. Barbra Soares, MSN, WALLPAPER CONSULTANT-BC, [facility] documented in this encounter Plan of Treatment Upcoming Encounters Date Type Specialty Care Team Description 05/28/2022 Appointment Cardiology Zulma Dolan MD [facility] [address] [place], [place] [address] (Wo rk) 05/28/2022 Laboratory Appointment Lab 05/28/2022 Office Visit Cardiology Zulma Dolan MD [facility] [place] [address] Liz Poole PA [facility] [place] [address] 06/10/2022 Office Visit Dermatology Laura Scherer MD [facility] [address] [place], [place] [address] (Wo rk) documented as of this encounter Visit Diagnoses Not on filedocumented in this encounter Care Teams Business Technology Professor Relationship Specialty Start Date End Date Lovely Vicente MD PCP - General 04/16/[address] [place] [address] documented as of this encounter
--- OUTSIDE RECORDS SUMMARY | 2022-04-06 10:41 | XMS_ITS | Encounter Summary ---
:1945 Author Organization [facility] [place] [address] Care Team Providers Name Role Phone Lovely Vicente MD Primary Care Provider Reason for Visit Auth/Cert Specialty Diagnoses / Procedures Referred By Contact Refer red To Contact Diagnoses Critical lower limb ischemia CELLULITIS RT FOOT Procedures EMERGENCY Referral ID Status Reason Start Date Expiration Date Visits Requ ested Visits Authorized [id number] 1 1 Encounter Details Date Type Department Care Team Description 08/06/2017 Clinical Support Same Day at [facility] Ischemia of foot [facility] [place] [address] Social History Tobacco Use Types Packs/Day [...] symptoms except severe right foot pain. [facility] clinic called as pt on [...] Dolan MD [facility] [address] [place], [place] [address] (Wo rk) 05/28/2022 Laboratory Appointment Lab 05/28/2022 Office Visit Cardiology Zulma Dolan MD [facility] [place] [address] Liz Poole PA [facility] [place] [address] 06/10/2022 Office Visit Dermatology Laura Scherer MD [facility] [address] [place], [place] [address] (Wo rk) documented as [...] 444 ms MUSE SYSTEM (Bezet) Calculated P [place] 44 degrees MUSE SYSTEM Calculated R [place] -31 degrees MUSE SYSTEM Calculated T [place] 106 degrees MUSE SYSTEM INTERPRETATION Normal sinus [...] disorder documented in this encounter Care Teams Floral Manager Relationship Specialty Start Date End Date Lovely Vicente MD PCP - General 04/16/[address] [place] [address] documented as of this encounter
--- OUTSIDE RECORDS SUMMARY | 2022-04-06 10:41 | XMS_ITS | Encounter Summary ---
:1945 [place] [address] Care Team Providers Name Role Phone Lovely Vicente MD Primary Care Provider Reason for Visit Auth/Cert Specialty Diagnoses / Procedures Referred By Contact Refer red To Contact Diagnoses Critical lower limb ischemia CELLULITIS RT FOOT Procedures EMERGENCY Referral ID Status Reason Start Date Expiration Date Visits Requ ested Visits Authorized [id number] 1 1 Encounter Details Date Type Department Care Team Description 08/09/2017 Anesthesia Event Main Operating Room Daniele Lizama MD [facility] [place] [address] [facility] Rob Jones MD [facility] [place] [address] [place] [address] Anesthesia Record Procedure Summary Procedure Name [...] Knowles, Dory arm), right; VAMSI Rios, RN owuw-nia-mxjgkw catheter system; 20 gauge; 08/16/17; 1047 PIV 07/29/17; 1413; median 07/29/17 1413 by 08/16/17 1047 by cubital vein (antecubital Magdalene Hickey Williams, Dory fossa), left; VAMSI Wyatt, RN fyfo-akh-xjliie catheter system; 20 gauge; 08/16/17; 1047 PIV 08/06/17; 1742; cephalic 08/06/17 1742 by 0920 by vein (lateral side of Taylor Laureano Danah y, Caitlyn C, arm), right; VAMSI BONNER mxsc-bxj-mbvzjn catheter system; 22 gauge, 1 in length; Eliseo LAUREANO RN VAS; distraction, intradermal injection, tolerated well, appears comfortable; 0; 08/16/17; 0920 Wound 08/07/17; 1335; knee; 08/07/17 1335 by 08/16/17 1047 by laceration; wound occured Barbara Albert iams, Dory EMERGENCY ROOM TECH; 08/16/17; 1047 VAMSI Alonzo, RN PIV 08/07/17; 1734; cephalic 08/07/17 1734 by 1047 by vein (lateral side of Kendrick, Carlos W, Willia ms, Dory arm), left; MARCIE Wyatt RN nydq-skq-nsqzbb catheter system; 22 gauge; distraction, intradermal injection, [...] MD - 08/09/2017 9:01 AM EST [facility] Department of Anesthesiology Post-procedure Note Patient: Don Fatima Procedure Summary Date Anesthesia Start Anesthesia Stop Room / Location 08/09/17 0802 0901 [facility] OR 14 / [facility] Procedure Diagnosis Surgeon Responsible Provider AMPUTATION, 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 Nerve [...] SETUP performed by Manny Mcknight MD at [facility] ??? PRO CABG, ARTERIAL, SINGLE N/A 07/07/2017 @CABG, USING ARTERIAL GRAFT;SINGLE ARTERIAL GRAFT (WRVU 33.75) performed by Yuan Retana MD at [facility] ??? PRO CABG, ARTERY-VEIN, TWO N/A 07/07/2017 @CABG, TWO VENOUS GRAFTS & ARTERIAL GRAFT (WRVU 7.93) performed by Yuan Retana MD at [facility] ??? PRO COLONOSCOPY, REMV LESN, SNARE 01/16/2014 COLONOSCOPY, POLYPECTOMY, REMOVAL LESION BY SNARE performed by Nohemi Jaimes MD at [facility] ENDOSCOPY ??? PRO ENDOSCOPY W/VIDEO-ASST VEIN HARVEST, CABG Right 07/07/2017 ENDOSCOPIC HARVEST VEIN(S) FOR CABG (WRVU 0.31) performed by Yuan Retana MD at [facility] ??? PRO THYROIDECTOMY 03/28/2013 THYROIDECTOMY, TOTAL OR COMPLETE performed by Manny Mcknight MD at [facility] Social History Substance Use [...] adequate IV access. Brody Santillan MD PGY-2, Traffic Safety Administrator Pager #[phone] Anesthesiology Staff (Dewhirst): Pre-op summary note as [...] Zulma Dolan MD [facility] [address] [place], [place] [address] (Wo rk) 05/28/2022 Laboratory Appointment Lab 05/28/2022 Office Visit Cardiology Zulma Dolan MD [facility] [place] [address] [facility] [place] [address] 06/10/2022 Office Visit Dermatology Laura Scherer MD [facility] [address] [place], [place] [address] (Wo rk) documented as of [...] Length: 10 cm Gauge: 21 Needle Type: R-guxis-pvraq Medication injection made in crementally with aspirations. [...] Procedure) documented in this encounter Care Teams News Analyst Relationship Specialty Start Date End Date Lovely Vicente MD PCP - General 04/16/15 [facility] [address] [place] [address] documented as of this encounter
--- OUTSIDE RECORDS SUMMARY | 2022-04-06 10:41 | XMS_ITS | Encounter Summary ---
:1945 Author Organization [facility] [place] [address] Care Team Providers Name Role Phone Lovely Vicente MD Primary Care Provider Reason for Visit Reason Comments Pain Management Ankle Pain Toe Pain Encounter Details Date Type Department Care Team Description 07/30/2017 Office Visit Pain Management at [facility], Per ipheral neuropathy [place] [employer] due to ischemia [facility] [address], [place], [place] [phone] Social History Tobacco Use Types Packs/Day Years [...] hours. documented in this encounter Progress Notes Brabra Soares APRN - 07/30/2017 1:45 PM EST [facility] [place] [place] [address] Phone: PAIN MANAGEMENT NEW PATIENT / CONSULTATION NOTE DATE OF VISIT 07/30/2017 Patient Don Fatima 1945 REFERRING PROVIDER Lovely Vicente MD [address] [place] [address] PRIMARY CARE PROVIDER Lovely Vicente MD CHIEF [...] much relief PAST THERAPIES: Nothing MEDICATIONS The [place] Prescription Monitoring Program was checked and no [...] SETUP performed by Manny Mcknight MD at [facility] OR ??? PRO CABG, ARTERIAL, SINGLE N/A 07/07/2017 @CABG, USING ARTERIAL GRAFT;SINGLE ARTERIAL GRAFT (WRVU 33.75) performed by Yuan Retana MD at [facility] OR ??? PRO CABG, ARTERY-VEIN, TWO N/A 07/07/2017 @CABG, TWO VENOUS GRAFTS & ARTERIAL GRAFT (WRVU 7.93) performed by Yuan Retana MD at [facility] OR ??? PRO COLONOSCOPY, REMV LESN, SNARE 01/16/2014 COLONOSCOPY, POLYPECTOMY, REMOVAL LESION BY SNARE performed by Nohemi Jaimes MD at [facility] ENDOSCOPY ??? PRO ENDOSCOPY W/VIDEO-ASST VEIN HARVEST, CABG Right 07/07/2017 ENDOSCOPIC HARVEST VEIN(S) FOR CABG (WRVU 0.31) performed by Yuan Retana MD at [facility] OR ??? PRO THYROIDECTOMY 03/28/2013 [...] referral, Lovely Vicente MD [address] [place] [address]. Barbra Soares, MSN, RESEARCH INTERN-BC, [employer] Nurse Practitioner [facility] documented in this encounter Plan of Treatment Upcoming Encounters Date Type Specialty Care Team Description 05/28/2022 Appointment Cardiology Zulma Dolan MD [facility] [place], [place] [address] (Wo rk) 05/28/2022 Laboratory Appointment Lab 05/28/2022 Office Visit Cardiology Zulma Dolan MD [facility] [place] [address] Liz Poole PA [facility] [place] [address] 06/10/2022 Office Visit Dermatology Laura Scherer MD [facility] [address]MAT [place], [place] [address] (Wo rk) documented as of this encounter Visit Diagnoses Diagnosis 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
--- OUTSIDE RECORDS SUMMARY | 2022-04-06 10:41 | XMS_ITS | Encounter Summary ---
:1945 [place] [address] Care Team Providers Name Role Phone Lovely Vicente MD Primary Care Provider Encounter Details Date Type Department Care Team Description 08/03/2017 Hospital Encounter Radiology Library at [place], Tommy Mijares [facility] [place] [address] VASCULAR SURGERY [phone] [place], [place] [address] (Wo rk) Social History [...] Zulma Dolan MD [facility] [address] [place], [place] [address] (Wo rk) 05/28/2022 Laboratory Appointment Lab 05/28/2022 Office Visit Cardiology Zulma Dolan MD [facility] [address] Liz Poole PA [facility] [place] [address] 06/10/2022 Office Visit Dermatology Laura Scherer MD [facility] [address] [place], [place] [address] (Wo rk) documented as of [...] Time Received Time / Laterality Volume Narrative [facility] - 08/03/2017 6:03 PM EST This exam is for storage only and is aut o-finalizing. Arik Clement MD G FILM LIBRARY ORDERABLES Performing Organization Address City/State/ZIP Code Phon e Number [place], [place] documented in this encounter Visit Diagnoses Diagnosis Pain Generalized pain documented in this encounter Care Teams Computer Numerical Control Programmer Relationship Specialty Start Date End Date Lovely Vicente MD PCP - General 04/16/[address] [place] [address] documented as of this encounter
--- OUTSIDE RECORDS SUMMARY | 2022-04-06 10:41 | XMS_ITS | Encounter Summary ---
:1945 Author Organization [facility] [place] [address] Care Team Providers Name Role Phone Lovely Vicente MD Primary Care Provider Reason for Visit Auth/Cert Specialty Diagnoses / Procedures Referred By Contact Refer red To Contact Diagnoses Critical lower limb ischemia CELLULITIS RT FOOT Procedures EMERGENCY Referral ID Status Reason Start Date Expiration Date Visits Requ ested Visits Authorized [id number] 1 1 Encounter Details Date Type Department Care Team Description 08/04/2017 Office Visit Cardiology at [facility] Danette Maxwell Incisional pain; [facility] A, MOCCASIN SEWER Ischemic cardiomyopathy; [facility] ASCVD (arteriosclerotic card iovascular disease); [place], [place] Systolic heart failure, unspecified hear t failure chronicity [phone] CARDIOLOGY [phone] [place], [place] [address] Social History Tobacco Use [...] in this encounter Progress Notes Danette Maxwell, MOCCASIN SEWER - 08/04/2017 3:00 PM EST ID and [...] painful and swollen right foot right d/t 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 [...] MD [facility] [address] [place], [place] [address] (Wo rk) 05/28/2022 Laboratory Appointment Lab 05/28/2022 Office Visit Cardiology Zulma Dolan MD [facility] [place] [address] Liz Poole PA [facility] [place] [address] 06/10/2022 Office Visit Dermatology Laura Scherer MD [facility] [address] [place], [place] [address] (Wo rk) documented as of [...] sensation documented in this encounter Care Teams Mine Laborer Relationship Specialty Start Date End Date Lovely Vicente MD PCP - General 04/16/[address] [place] [address] documented as of this encounter
--- OUTSIDE RECORDS SUMMARY | 2022-04-06 10:41 | XMS_ITS | Encounter Summary ---
:1945 Author Organization [place] [address] Care Team Providers Name Role Phone Lovely Vicente MD Primary Care Provider Reason for Visit Auth/Cert Specialty Diagnoses / Procedures Referred By Contact Refer red To Contact Diagnoses Critical lower limb ischemia CELLULITIS RT FOOT Procedures EMERGENCY Referral ID Status Reason Start Date Expiration Date Visits Requ ested Visits Authorized [id number] 1 1 Encounter Details Date Type Department Care Team Description 08/04/2017 [facility] [place] thrombosis of [facility] [place] [phone] Social History Tobacco Use Types Packs/Day Years [...] Cardiology Zulma Dolan MD [facility] [place], [place] [address] (Wo rk) 05/28/2022 Laboratory Appointment Lab 05/28/2022 Office Visit Cardiology Zulma Dolan MD [facility] [place] [address] Liz Poole PA [facility] [place] [address] 06/10/2022 Office Visit Dermatology Lauar Scherer MD [facility] [address]DERMAT [place], [place] [address] [...] Department: Vascular Surgery Lab VASCUBASE Report Patient: [id number] (DON HOANG) CPT: 35847 ICD10: I82.541 Referring Physician: MEÑO HUTSON ?? [...] extremity documented in this encounter Care Teams Box Toe Cementer Relationship Specialty Start Date End Date Lovely Vicente MD PCP - General 04/16/[address] [place] [address] documented as of this encounter
--- OUTSIDE RECORDS SUMMARY | 2022-04-06 10:41 | XMS_ITS | Encounter Summary ---
:1945 Author Organization [facility] Address [facility] [place] [address] Care Team Providers Name Role Phone Lovely Vicente MD Primary Care Provider Reason for Visit Auth/Cert Specialty Diagnoses / Procedures Referred By Contact Refer red To Contact Diagnoses Critical lower limb ischemia CELLULITIS RT FOOT Procedures EMERGENCY Referral ID Status Reason Start Date Expiration Date Visits Requ ested Visits Authorized [id number] 1 1 Encounter Details Date Type Department Care Team Description 08/04/2017 Laboratory Lab 3L Barbara Cardiomyopathy, unspecified type; Appointment [facility] Systolic congestive heart failure, unspecified congestive heart failure chronicity; Hospital Coronary artery rupture; 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 [address] Liz Poole PA [facility] [place] [address] 06/10/2022 Office Visit Dermatology Laura Scherer MD [facility] ER DR [address]MAT [place]LOGY [place], [place] [address] (Wo rk) documented as of this encounter Procedures Procedure Name Priority Date/Time Associated Diagnosis Comme nts HEMOGRAM Routine 08/04/2017 12:55 Essential Results for this PM EST hypertension, procedure are in malignant the results section. PROTHROMBIN TIME Routine 08/04/2017 12:55 Coronary artery Resu lts for this PM EST rupture procedure are in Ischemic the results cardiomyopathy section. Atherosclerosis of [place] coronary artery, angina presence unspecified, unspecified whether [place] or transplanted heart URIC ACID Routine 08/04/2017 [...] with the results diabetic section. nephropathy, unspecified snf insulin use status Essential hypertension, malignant COMPREHENSIVE Routine 08/04/2017 12:55 Essential Results fo r this METABOLIC PANEL PM EST hypertension, procedure a re in (NON-FASTING) malignant the results section. documented in this encounter Results Uric acid (08/04/2017 12:55 PM EST) P athologist Signature Uric Acid 7.1 3.5 - 8.5 [facility] mg/dL [facility] LABORATORY Specimen Anatomical Collection Method Collection Time Receive d Time (Source) Location / / Volume Laterality Blood specimen 08/04/2017 12:55 8 1:01 (specimen) PM EST PM EST Resulting Agency Comment Spec In Lab Lovely Vicente MD CHEMISTRY ORDERABLES Performing Organization Address City/[facility]/ZIP [place] [address] (ABNORMAL) Hemogram (08/04/2017 12:55 PM EST) Analysis Performed At Patho logist Time Signature WBC 15.8 (H) 4.0 - 9.5 [facility] x10(3)/[facility] LABORATORY RBC 3.48 (L) 4.58 - [facility] RYAN 5.54 [facility] x10(6)/[facility] LABORATORY Hemoglobin 9.9 (L) 13.7 - [facility] 16.5 gm/dL [facility] Hematocrit 31.4 (L) 40.5 - [facility] 48.5 % [facility] MCV 90.2 82.9 - [facility] 93.1 [facility] LABORATORY MCH 28.4 27.5 - [facility] 32.1 pg [facility] LAB[facility]ORY MCHC 31.5 (L) 32.0 - [facility] 35.7 gm/dL [facility] LAB[facility] Platelets 310 145 - 357 [facility] x10(3)/[facility] LABORATORY RDWSD 51.8 (H) 36.0 - [facility] 45.0 [facility] LABORATORY RDWCV 15.8 (H) 11.4 - [facility] RYAN 13.8 % [facility] LABORATORY MPV 8.9 7.6 - 12.9 [facility] LABORATORY nRBC % Auto 0.0 % [facility] LABORATORY nRBC Abs Auto 0.000 0.000 - [facility] 0.000 [facility] x10(3)/[facility] LABORATORY Specimen Anatomical Collection Method Collection Time Receive d Time (Source) Location / / Volume Laterality Blood specimen 08/04/2017 12:55 8 1:01 (specimen) PM EST PM EST Resulting Agency Comment Spec In Lab Lovely Vicente MD HEMATOLOGY ORDERABLES Performing Organization Address City/State/ZIP [place] [address] (ABNORMAL) Comprehensive metabolic panel (non-fasting) (08/04/2017 12:55 PM EST) athologist Signature Glucose Lvl 208 (H) 65 - 199 [facility] mg/dL [facility] LABORATORY [...] CENTER LABORATORY Estimated GFR 43 (L) >=60 [facility] LAB[facility]ORY Comment: The reported eGFR should be multiplied b y 1.2 for patients. The MDRD is not an appropriate measure o f renal function for patients with body mass extremes or in patients with acute kidney failure. http://[employer]/DHnkdep http://[employer]/DHMCnkf Specimen Anatomical Collection Method Collection Time Receive d Time (Source) Location / / Volume Laterality Blood specimen 08/04/2017 12:55 8 1:01 (specimen) PM EST PM EST Resulting Agency Comment Spec In Lab Lovely Vicente MD CHEMISTRY ORDERABLES Performing Organization Address City/State/ZIP Code Phon e Number [place] [id number] [address] (ABNORMAL) Hemoglobin A1c (08/04/2017 12:55 PM EST) Analysis Performed At Patho logist Time Signature Hemoglobin A1C 6.2 (H) 4.3 - 5.6 [facility] [...] with hemoglobinopathies. Additional resources are available on [facility] website. Macario HAMMOND, Ruthann J, Deysi R, et al. ??Tr anslating the A1C assay into estimated average glucose values. ??Diabetes Care 2008:31(8):8773-4897. Specimen Anatomical Collection Method Collection Time Receive d Time (Source) Location / / Volume Laterality Blood specimen 08/04/2017 12:55 8 1:01 (specimen) PM EST PM EST Resulting Agency Comment Spec In Lab Lovely Vicente MD CHEMISTRY ORDERABLES Performing Organization Address [facility] [place] [address] (ABNORMAL) Prothrombin Time (08/04/2017 12:55 PM EST) P athologist Signature PT 35.4 (H) 11.8 - 14.0 [facility] LABORATORY INR 3.5 (H) 0.9 - [...] Vicente MD HEMATOLOGY ORDERABLES Performing Organization Address [facility] [place] [address] (ABNORMAL) pro-Brain Natriuretic Peptide (08/04/2017 12:55 PM EST) P athologist Signature ProBNP 3,133 (H) <=125 [facility] pg/mL [facility] LAB[facility]ORY Specimen Anatomical Collection Method Collection Time Receive d Time (Source) Location / / Volume Laterality Blood specimen 08/04/2017 12:55 8 1:01 (specimen) PM EST PM EST Resulting Agency Comment Spec In Lab Danette Maxwell APRN CHEMISTRY ORDERABLES Performing Organization Address City/State/Z[place] [address] documented in this encounter [...] unspecified intermediate card tender insulin use status documented in this encounter Care Teams Corporate Safety Coordinator Relationship Specialty Start Date End Date Lovely Vicente MD PCP - General 04/16/[address] [place] [address] documented as of this encounter
--- OUTSIDE RECORDS SUMMARY | 2022-04-06 10:41 | XMS_ITS | Encounter Summary ---
:1945 Author Organization [facility] [place] [address] Care Team Providers Name Role Phone Lovely Vicente MD Primary Care Provider Encounter Details Date Type Department Care Team Description 08/04/2017 Orders Only Cardiac Surgery Makayla Wilson APRN [facility] [place] [address] CARDIAC SURGERY [phone] [place], [place] [address] (Wo rk) Social History Tobacco [...] MD [facility] er [address] [place], [place] [address] (Wo rk) 05/28/2022 Laboratory Appointment Lab 05/28/2022 Office Visit Cardiology Zulma Dolan MD [facility] [place] [address] [facility] [place] [address] 06/10/2022 Office Visit Dermatology Laura Scherer MD [facility] ER DR [address] GR[place]DERMAT [place], [place] [address] (Wo rk) documented as of this encounter Visit Diagnoses Not on filedocumented in this encounter Care Teams Boat Designer Relationship Specialty Start Date End Date Lovely Vicente MD PCP - General 04/16/[address] [place] [address] documented as of this encounter
--- OUTSIDE RECORDS SUMMARY | 2022-04-06 10:41 | XMS_ITS | Encounter Summary ---
:1945 Author Organization [facility] [place] [address] Care Team Providers Name Role Phone Lovely Vicente MD Primary Care Provider Encounter Details Date Type Department Care Team Description 08/06/2017 Orders Only Vascular Surgery at [facility] [place] APRN Ischemia of foot [facility] [place] [address] VASCULAR SURGERY [phone] [place], [place] [address] (Wo rk) Social History Tobacco [...] MD [facility] er [place], [place] [address] (Wo rk) 05/28/2022 Laboratory Appointment Lab 05/28/2022 Office Visit Cardiology Zulma Dolan MD [facility] [place] [address] Liz Poole PA [facility] [place] [address] 06/10/2022 Office Visit Dermatology Laura Scherer MD [facility] ER DR TEJA GR-DERMAT [place], [place] [address] (Wo rk) documented as [...] (L) 20 - 40 [place] RYAN mg/dL [facility] LABORATORY Comment: Prealbumin levels are generally [...] Organization Address City/State/[place] [address] (ABNORMAL) Basic Metabolic Panel (non-fasting) (08/06/2017 12:32 PM EST) athologist Signature Glucose Lvl 92 65 - 199 [facility] mg/dL [facility] LAB[facility] Comment: [...] CENTER LABORATORY Estimated GFR 53 (L) >=60 [facility] LAB[facility] Comment: The reported eGFR should be multiplied b y 1.2 for patients. The MDRD is not an appropriate measure o f renal function for patients with body mass extremes or in patients with acute kidney failure. http://[employer]/DHnkdep http://[employer]/DHMCnkf Specimen Anatomical Collection Method Collection Time Receive d Time (Source) Location / / Volume Laterality Blood specimen 08/06/2017 12:32 8 1:15 (specimen) PM EST PM EST Resulting Agency Comment Spec In Lab Arik Clement MD CHEMISTRY ORDERABLES Performing Organization Address City/State/[place] [address] (ABNORMAL) Hemogram (08/06/2017 12:32 PM EST) Analysis Performed At Patho logist Time Signature WBC 11.8 (H) 4.0 - 9.5 [facility] x10(3)/[facility] LABORATORY RBC 3.49 (L) 4.58 - [facility] [address] [facility] x10(6)/[facility] LABORATORY Hemoglobin 9.9 (L) 13.7 - [facility] 16.5 gm/dL [facility] LABOR[facility]ORY Hematocrit 32.0 (L) 40.5 - [facility] 48.5 % [facility] LABOR[facility] MCV 91.7 82.9 - [facility] 93.1 [facility] LABORATORY MCH 28.4 27.5 - [facility] 32.1 pg [facility] LABORAT[facility] MCHC 30.9 (L) 32.0 - [facility] 35.7 gm/dL [facility] LABOR[facility] Platelets 326 145 - 357 [facility] x10(3)/[facility] LABORATORY RDWSD 53.4 (H) 36.0 - [facility] 45.0 [facility] LABORATORY RDWCV 16.0 (H) 11.4 - [facility] 13.8 % [facility] LABORATORY MPV 9.1 7.6 - 12.9 [facility] LABORATORY nRBC % Auto 0.0 % [facility] LABORATORY nRBC Abs Auto 0.000 0.000 - [facility] 0.[address] [facility] x10(3)/[facility] LABORATORY Specimen Anatomical Collection Method Collection Time Receive d Time (Source) Location / / Volume Laterality Blood specimen 08/06/2017 12:32 8 1:15 (specimen) PM EST PM EST Resulting Agency Comment Spec In Lab Arik Clement MD HEMATOLOGY ORDERABLES Performing Organization Address City/State/[place] [address] documented in this encounter Visit Diagnoses Diagnosis Ischemia of foot Unspecified circulatory system disorder documented in this encounter Care Teams Film Washer Relationship Specialty Start Date End Date Lovely Vicente MD PCP - General 04/16/[address] [place] [address] documented as of this encounter
--- OUTSIDE RECORDS SUMMARY | 2022-04-06 10:41 | XMS_ITS | Encounter Summary ---
:1945 Author Organization [facility] [place] [address] Care Team Providers Name Role Phone Lovely Vicente MD Primary Care Provider Encounter Details Date Type Department Care Team Description 07/29/2017 Transcribe Orders Laboratory Lovely Vicente MD [address] [address] [place] [address] [phone] (Wo rk) Social History Tobacco Use Types [...] [facility] er [address] [place] [address] (Wo rk) 05/28/2022 Laboratory Appointment Lab 05/28/2022 Office Visit Cardiology Zulma Dolan MD [facility] [place] [address] Liz Poole PA [facility] [place] [address] 06/10/2022 Office Visit Dermatology Laura Scherer MD [facility] ER DR [address] GR[address]DERMAT [place], [place] [address] (Wo rk) documented as of this encounter Visit Diagnoses Not on filedocumented in this encounter Care Teams Restaurant Area Manager Relationship Specialty Start Date End Date Lovely Vicente MD PCP - General 04/16/[address] [place] [address] documented as of this encounter
--- OUTSIDE RECORDS SUMMARY | 2022-04-06 10:41 | XMS_ITS | Encounter Summary ---
:1945 [place] [address] Care Team Providers Name Role Phone Lovely Vicente MD Primary Care Provider Encounter Details Date Type Department Care Team Description 08/03/2017 Hospital Encounter Radiology Library at [place], Tommy Mijares [facility] [place] [address] VASCULAR SURGERY [phone] [place], [place] [address] (Wo rk) Social History Tobacco [...] Cardiology Zulma Dolan MD [facility] [address] [place], [place] [address] (Wo rk) 05/28/2022 Laboratory Appointment Lab 05/28/2022 Office Visit Cardiology uZlma Dolan MD [facility] [place] [address] Liz Poole PA [facility] [place] [address] 06/10/2022 Office Visit Dermatology Laura Scherer MD [facility] DR TE[address]DERMAT OLOGY [place], [place] 0[address] (Wo rk) documented as of [...] Time Received Time / Laterality Volume Narrative [facility] - 08/03/2017 6:01 PM EST This exam is for storage only and is aut o-finalizing. Arik Clement MD G FILM LIBRARY ORDERABLES Performing Organization Address City/State/ZIP Code Phon e Number [place], [place] documented in this encounter Visit Diagnoses Diagnosis Pain Generalized pain documented in this encounter Care Teams Beef Skinner Relationship Specialty Start Date End Date Lovely Vicente MD PCP - General 04/16/[address] [place] [address] documented as of this encounter
--- OUTSIDE RECORDS SUMMARY | 2022-04-06 10:41 | XMS_ITS | Encounter Summary ---
:1945 Author Organization [facility] [place] [address] Care Team Providers Name Role Phone Lovely Vicente MD Primary Care Provider Reason for Visit Auth/Cert Specialty Diagnoses / Procedures Referred By Contact Refer red To Contact Diagnoses Critical lower limb ischemia CELLULITIS RT FOOT Procedures EMERGENCY Referral ID Status Reason Start Date Expiration Date Visits Requ ested Visits Authorized [id number] 1 1 Encounter Details Date Type Department Care Team Description 08/06/2017 Hospital En[facility] [place] [address] Social History Tobacco Use Types Packs/Day [...] Dolan MD [facility] Dr [place], [place] [address] (Wo rk) 05/28/2022 Laboratory Appointment Lab 05/28/2022 Office Visit Cardiology Zulma Dolan [place] [facility] [place] [address] Liz Poole PA [facility] [place] [address] 06/10/2022 Office Visit Dermatology Laura Scherer MD [facility] DR [address]-DERMAT OGY [place], [place] [address] (Wo rk) documented as of this encounter Visit Diagnoses Not on filedocumented in this encounter Care Teams Music Engraver Relationship Specialty Start Date End Date Lovely Vicente MD PCP - General 04/16/[address] [place] [address] documented as of this encounter
--- OUTSIDE RECORDS SUMMARY | 2022-04-06 10:41 | XMS_ITS | Encounter Summary ---
:1945 [place] [address] Care Team Providers Name Role Phone Lovely Vicente MD Primary Care Provider Encounter Details Date Type Department Care Team Description 08/04/2017 Notes Only Cardiac Surgery Makayla Wilson APRN [facility] [place] [address] CARDIAC SURGERY [phone] [place], [place] [address] (Wo rk) Social History Tobacco [...] Cardiology Zulma Dolan MD [facility] [place], [place] [address] (Wo rk) 05/28/2022 Laboratory Appointment Lab 05/28/2022 Office Visit Cardiology Zulma Dolan MD [facility] [place] [address] Liz Poole PA [facility] [place] [address] 06/10/2022 Office Visit Dermatology Laura Scherer MD [facility] [address] TE[address] GR-DERMAT [place], [place] [address] (Wo rk) documented as of this encounter Visit Diagnoses Not on filedocumented in this encounter Care Teams Engineering Instructor Relationship Specialty Start Date End Date Lovely Vicente MD PCP - General 04/16/[address] [place] [address] documented as of this encounter
--- OUTSIDE RECORDS SUMMARY | 2022-04-06 10:41 | XMS_ITS | Encounter Summary ---
:1945 Author Organization [facility] [place] [address] Care Team Providers Name Role Phone Lovely Vicente MD Primary Care Provider Reason for Visit Auth/Cert Specialty Diagnoses / Procedures Referred By Contact Refer red To Contact Diagnoses Critical lower limb ischemia CELLULITIS RT FOOT Procedures EMERGENCY Referral ID Status Reason Start Date Expiration Date Visits Requ ested Visits Authorized [id number] 1 1 Encounter Details Date Type Department Care Team Description 08/06/2017 Laboratory Appointment Lab [place] [facility] [place]schemia of foot [facility] [place] [address] Social History Tobacco Use Types Packs/Day [...] [facility] [place] [address] [place] [address] (Wo rk) 05/28/2022 Laboratory Appointment Lab 05/28/2022 Office Visit Cardiology Zulma Dolan MD [facility] [place] [address] Liz Poole PA [facility] [place] [address] 06/10/2022 Office Visit Dermatology Laura Scherer MD [facility] ER DR LEZ[address]-DERMAT [facility] [place], [place] [address] (Wo rk) documented [...] Signature Prealbumin 19 (L) 20 - 40 [facility] mg/dL [facility] Comment: Prealbumin levels are generally [...] Organization Address City/State/[place] [address] (ABNORMAL) Basic Metabolic Panel (non-fasting) (08/06/2017 12:32 PM EST) P athologist Signature Glucose Lvl 92 65 - 199 [facility] mg/dL [facility] Comment: Diabetes: >=200 mg/dL plus symp toms BUN 29 (H) 10 - 20 mg/dL [facility] Creatinine 1.33 0.80 - 1.50 mg/dL [facility] Sodium 138 135 - 145 [...] mg/dL [facility] Estimated GFR 53 (L) >=60 [facility] Comment: The reported eGFR should be multiplied b y 1.2 for patients. The MDRD is not an appropriate measure o f renal function for patients with body mass extremes or in patients with acute kidney failure. http://Applause/DHnkdep http://Applause/DHMCnkf Specimen Anatomical Collection Method Collection Time Receive d Time (Source) Location / / Volume Laterality Blood specimen 08/06/2017 12:32 8 1:15 (specimen) PM EST PM EST Resulting Agency Comment Spec In Lab Arik Clement MD CHEMISTRY ORDERABLES Performing Organization Address City/State/[place] [address] (ABNORMAL) Hemogram (08/06/2017 12:32 PM EST) Analysis Performed At Patho logist Time Signature WBC 11.8 (H) 4.0 - 9.5 [facility] x10(3)/[facility] LABORATORY RBC 3.49 (L) 4.58 - [facility] 5.54 [facility] x10(6)/[employer] LABORATORY Hemoglobin 9.9 (L) 13.7 - [facility] 16.5 gm/dL [facility] Hematocrit 32.0 (L) 40.5 - [facility] 48.5 % [facility] MCV 91.7 82.9 - [facility] 93.1 [facility] LABORATORY MCH 28.4 27.5 - [facility] DAVIS 32.1 pg [facility] MCHC 30.9 (L) 32.0 - [facility] 35.7 gm/dL [facility] LAB[facility] Platelets 326 145 - 357 [facility] x10(3)/[facility] LABORATORY RDWSD 53.4 (H) 36.0 - [facility] 45.0 [facility] LABORATORY RDWCV 16.0 (H) 11.4 - [place] RYAN 13.8 % [facility] LAB[facility]ATORY MPV 9.1 7.6 - 12.9 [facility] LABORATORY nRBC % Auto 0.0 % [facility] LABORATORY nRBC Abs Auto 0.000 0.000 - [place] DAV[facility] 0.000 [facility] x10(3)/[facility] LABORATORY Specimen Anatomical Collection Method Collection Time Receive d Time (Source) Location / / Volume Laterality Blood specimen 08/06/2017 12:32 8 1:15 (specimen) PM EST PM EST Resulting Agency Comment Spec In Lab Arik Clement MD HEMATOLOGY ORDERABLES Performing Organization Address City/State/ZIP Code Phon e Number [place] [phone] documented in this encounter Visit Diagnoses Diagnosis Ischemia of foot Unspecified circulatory system disorder documented in this encounter Care Teams Personal Finance Instructor Relationship Specialty Start Date End Date Lovely Vicente MD PCP - General 04/16/[address] [place] [address] documented as of this encounter
--- OUTSIDE RECORDS SUMMARY | 2022-04-06 10:41 | XMS_ITS | Encounter Summary ---
:1945 Author Organization [facility] [place] [address] Care Team Providers Name Role Phone Lovely Vicente MD Primary Care Provider Reason for Visit Auth/Cert Specialty Diagnoses / Procedures Referred By Contact Refer red To Contact Diagnoses Critical lower limb ischemia CELLULITIS RT FOOT Procedures EMERGENCY Referral ID Status Reason Start Date Expiration Date Visits Requ ested Visits Authorized [id number] 1 1 Encounter Details Date Type Department Care Team Description 08/04/2017 Laboratory Appointment Lab 3L [facility] [place] [address] Social History Tobacco Use Types Packs/Day [...] MD [facility] er [address] [place] [address] (Wo rk) 05/28/2022 Laboratory Appointment Lab 05/28/2022 Office Visit Cardiology Zulma Dolan MD [facility] [place] [address] Liz Poole PA [facility] [place] [address] 06/10/2022 Office Visit Dermatology Laura Scherer MD [facility] DR [address]DERMAT [place], [place] [address] (Wo rk) documented as of this encounter Visit Diagnoses Not on filedocumented in this encounter Care Teams Rn Transport Relationship Specialty Start Date End Date Lovely Vicente MD PCP - General 04/16/15 [facility] [address] [place], [place] [address] documented as of this encounter
--- OUTSIDE RECORDS SUMMARY | 2022-04-06 10:41 | XMS_ITS | Encounter Summary ---
:1945 [place] [address] Care Team Providers Name Role Phone Lovely Vicente MD Primary Care Provider Encounter Details Date Type Department Care Team Description 07/29/2017 Hospital Encounter Vascular Lab at Critic monica Huber lower limb [facility] [place] [phone] Social History Tobacco Use Types Packs/Day Years [...] MD [facility] [place], [place] [address] (Wo rk) 05/28/2022 Laboratory Appointment Lab 05/28/2022 Office Visit Cardiology Zulma Dolan MD [facility] [place] [address] Liz Poole PA [facility] [place] [address] 06/10/2022 Office Visit Dermatology Laura Scherer MD [facility] DR [address]-DERMAT OGY [place], [place] 0[address] (Wo rk) documented as of this encounter Visit Diagnoses Diagnosis Critical lower limb ischemia Unspecified circulatory system disorder documented in this encounter Care Teams Air Compressor Engineer Relationship Specialty Start Date End Date Lovely Vicente MD PCP - General 04/16/[address] [place] [address] documented as of this encounter
--- OUTSIDE RECORDS SUMMARY | 2022-04-06 10:41 | XMS_ITS | Encounter Summary ---
:1945 [place] [address] Care Team Providers Name Role Phone Lovely Vicente MD Primary Care Provider Encounter Details Date Type Department Care Team Description 08/05/2017 Notes Only Vascular [place] [facility] [place], [place]ACIE [facility] [address] VASCULAR SURGERY [phone] [place], [place] [address] (Wo rk) Social [...] Description 05/28/2022 Appointment Cardiology Zulma Dolan MD [facility] [place], [place] [address] (Wo rk) 05/28/2022 Laboratory Appointment Lab 05/28/2022 Office Visit Cardiology Zulma Dolan MD [facility] [place] [address] Liz Poole PA [facility] [place] [address] 06/10/2022 Office Visit Dermatology Laura Scherer MD [facility] [address] [place], [place] [address] (Wo rk) documented as of this encounter Visit Diagnoses Not on filedocumented in this encounter Care Teams Director Client Relationship Specialty Start Date End Date Lovely Vicente MD PCP - General 04/16/15 [facility] [address] [place] [address] documented as of this encounter
--- OUTSIDE RECORDS SUMMARY | 2022-04-06 10:41 | XMS_ITS | Encounter Summary ---
:1945 Author Organization [facility] Address [facility] [place] [address] Care Team Providers Name Role Phone Lovely Vicente MD Primary Care Provider Encounter Details Date Type Department Care Team Description 07/29/2017 Transcribe Orders Laboratory Lovely Vicente, Coronary artery rupture; [facility] Medical Ischemic cardiomyopathy; [facility] [address] Atherosclerosis [place] co ronary artery, angina presence unspecified, unspecified whether [place] or transplanted heart; [place], [place] [address] Essential hypertension, malignant; [address] [place], [place] 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, unspecified intermediate insulin use status [phone] [id number] Social History Tobacco Use Types Packs/Day Years [...] MD [facility] er [place], [place] [address] (Wo rk) 05/28/2022 Laboratory Appointment Lab 05/28/2022 Office Visit Cardiology Zulma Dolan MD [facility] [place] [address] Liz Poole PA [facility] [place] [address] 06/10/2022 Office Visit Dermatology Laura Scherer MD [facility] ER DR [address]DERMAT [place], [place] [address] (Wo rk) Scheduled Orders Name Type Priority Associated Diagnoses Order S chedule Lab Use Only, Fax Lab Routine Coronary arter y rupture Expected: 07/29/2017 Request Ischemic cardiom yopathy (Approximate), Atherosclerosis of [place] Ex jose: 07/29/2018 coronary artery, angina presence unspecified, unspecified whether [place] or transplanted heart Essential hypertension, malignant documented as of this encounter Results Uric acid (08/04/2017 12:55 PM EST) P athologist Signature Uric Acid 7.1 3.5 - 8.5 [facility] mg/dL [facility] Specimen Anatomical Collection Method Collection Time Receive d Time (Source) Location / / Volume Laterality Blood specimen 08/04/2017 12:55 8 1:01 (specimen) PM EST PM EST Resulting Agency Comment Spec In Lab Lovely Vicente MD CHEMISTRY ORDERABLES Performing Organization Address City/State/[place] [address] (ABNORMAL) Hemogram (08/04/2017 12:55 PM EST) Analysis Performed At Patho logist Time Signature WBC 15.8 (H) 4.0 - 9.5 [facility] x10(3)/[facility] LABORATORY RBC 3.48 (L) 4.58 - [facility] 5.54 [facility] x10(6)/[facility] LABORATORY Hemoglobin 9.9 (L) 13.7 - [facility] 16.5 gm/dL [facility] Hematocrit 31.4 (L) 40.5 - [facility] DAVIS 48.5 % [facility] MCV 90.2 82.9 - [facility] 93.1 [facility] LABORATORY MCH 28.4 27.5 - [place] RYAN 32.1 pg [facility] MCHC 31.5 (L) 32.0 - [facility] ZHAORYAN 35.7 gm/dL [facility] Platelets 310 145 - [address] [facility] x10(3)/[facility] LABORATORY RDWSD 51.8 (H) 36.0 - [place] RYAN 45.0 [facility] LABORATORY RDWCV 15.8 (H) 11.4 - [facility] 13.8 % [facility] LABORATORY MPV 8.9 7.6 - 12.9 [facility] LABORATORY nRBC % Auto 0.0 % [facility] LABORATORY nRBC Abs Auto 0.000 0.000 - [facility] 0.000 [facility] x10(3)/[facility] LABORATORY Specimen Anatomical Collection Method Collection Time Receive d Time (Source) Location / / Volume Laterality Blood specimen 08/04/2017 12:55 8 1:01 (specimen) PM EST PM EST Resulting Agency Comment Spec In Lab Lovely Vicente MD HEMATOLOGY ORDERABLES Performing Organization Address City/State/ZIP Code Phon e Number [place] [phone] (ABNORMAL) Comprehensive metabolic panel (non-fasting) (08/04/2017 12:55 PM EST) P athologist Signature Glucose Lvl 208 (H) 65 - [address] [facility] mg/dL [facility] Comment: Diabetes: >=200 mg/dL plus symp toms BUN 32 (H) 10 - 20 mg/dL [facility]OR[facility] Creatinine 1.58 (H) 0.80 - 1.50 mg/dL [facility] LABORATORY Sodium 136 135 - 145 mmol/L [facility] Potassium 5.5 (H) 3.5 - 5.0 mmol/L [facility] 10.5 mg/dL [facility] Total Protein 6.9 6.1 [...] or in patients with acute kidney failure. http://AURSOS/DHnkdep http://AURSOS/DHMCnkf Specimen Anatomical Collection Method Collection Time Receive d Time (Source) Location / / Volume Laterality Blood specimen 08/04/2017 12:55 8 1:01 (specimen) PM EST PM EST Resulting Agency Comment Spec In Lab Lovely Vicente MD CHEMISTRY ORDERABLES Performing Organization Address City/State/[place] [address] (ABNORMAL) Hemoglobin A1c (08/04/2017 [...] Avg Gluc See note mg/dL [facility] DAV[facility] Comment: Estimated Average Glucose not [...] with hemoglobinopathies. Additional resources are available on [facility] ADA website. Macario HAMMOND, Ruthann J, Deysi R, et al. ??Tr anslating the A1C assay into estimated average glucose values. ??Diabetes Care 2008:31(8):3969-8322. Specimen Anatomical Collection Method Collection Time Receive d Time (Source) Location / / Volume Laterality Blood specimen 08/04/2017 12:55 8 1:01 (specimen) PM EST PM EST Resulting Agency Comment Spec In Lab Lovely Vicente MD CHEMISTRY ORDERABLES Performing Organization Address City/State/[place] [address] (ABNORMAL) Prothrombin Time (08/04/2017 12:55 PM EST) P athologist Signature PT 35.4 (H) 11.8 - 14.0 [facility] LABORATORY INR 3.5 (H) 0.9 - [...] Organization Address City/State/[place] [address] documented in this encounter Visit Diagnoses Diagnosis Coronary artery rupture Acute myocardial infarction, unspecified site, episode of care unspecified Ischemic cardiomyopathy Other specified forms of chronic ischemi c heart disease Atherosclerosis of [place] coronary arter y, angina presence unspecified, unspecified whether [place] or transplanted heart Essential hypertension, malignant Diabetes mellitus due to underlying cond ition with diabetic nephropathy, unspecified intermediate insulin use status documented in this encounter Care Teams Rail Track Layer Relationship Specialty Start Date End Date Lovely Vicente MD PCP - General 04/16/[address] [place] [address] documented as of this encounter
--- OUTSIDE RECORDS SUMMARY | 2022-04-06 10:41 | XMS_ITS | Encounter Summary ---
:1945 Author Organization [facility] [place] [address] Care Team Providers Name Role Phone Lovely Vicente MD Primary Care Provider Reason for Visit Auth/Cert Specialty Diagnoses / Procedures Referred By Contact Refer red To Contact Diagnoses Critical lower limb ischemia CELLULITIS RT FOOT Procedures EMERGENCY Referral ID Status Reason Start Date Expiration Date Visits Requ ested Visits Authorized [id number] 1 1 Encounter Details Date Type Department Care Team Description 08/04/2017 Hospital Encounter XRay at [facility] Danette Maxwell Incisional pain [address] [place] [address] Dr Gomes, AIRCRAFT TOOL MAKER [facility] [phone] CARDIOLOGY [place], [place] [address] Social History Tobacco Use Types [...] Dolan MD [facility] [place], [place] 0[address] (Wo rk) 05/28/2022 Laboratory Appointment Lab 05/28/2022 Office Visit Cardiology Zulma Dolan MD [facility] [place] [address] Liz Poole PA [facility] [place] [address] 06/10/2022 Office Visit Dermatology Laura Scherer MD [facility] DR TE[address] GR-DERMAT [place]LOG[place], [place] [address] (Wo rk) documented as of [...] original. EXAMINATION: XR CHEST PA AND LATERAL ([employer]) CLINICAL HISTORY: Checking sternal stabi lity/assess wires [...] Daniele gutiérrez 08/04/2017 4:13 PM Danette Maxwell AIRCRAFT TOOL MAKER IMG DX ORDERABLES documented in this encounter Visit Diagnoses Diagnosis Incisional pain Disturbance of skin sensation documented in this encounter Care Teams Sapphire Stylus Grinder Relationship Specialty Start Date End Date Lovely Vicente MD PCP - General 04/16/[address] [place] [address] documented as of this encounter
--- OUTSIDE RECORDS SUMMARY | 2022-04-06 10:42 | XMS_ITS | Encounter Summary ---
:1945 Author Organization [facility] [place] [address] Care Team Providers Name Role Phone Lovely Vicente MD Primary Care Provider Reason for Visit Reason Onset Date Comments Other 07/22/2017 lovenox bridge Encounter Details Date Type Department Care Team Description 07/22/2017 Telephone Cardiology at [facility] Court Cadena RN Other (lovenox bridge) [place] [address] Social History Tobacco Use Types Packs/Day [...] 4:49 PM EST VAMSI Del Castillo, at [facility], called earlier today with a question re: lovenox bridge for this patient who was recently discharged from [facility] r/t a blood clot. Discharge note faxed to [facility] (fax# [phone], Ph#: [phone]) which contains instructions r/t lovenox bridge as follows: Anticoagulation: on lovenox bridge to therapeutic coumadin for AFib. Goal INR 2-3. At discharge INR=1.5. The lovenox injections can stop when INR >2, coumadin will continue indefinitely. documented in this encounter Plan of Treatment Upcoming Encounters Date Type Specialty Care Team Description 05/28/2022 Appointment Cardiology Zulma Dolan MD [facility] [place], [place] [address] (Wo rk) 05/28/2022 Laboratory Appointment Lab 05/28/2022 Office Visit Cardiology Zulma Dolan MD [facility] [place] [address] Liz Poole PA [facility] [place] [address] 06/10/2022 Office Visit Dermatology Laura Scherer MD [facility] DR [address]-DERMAT [place], [place] [address] (Wo rk) documented as of this encounter Visit Diagnoses Not on filedocumented in this encounter Care Teams Radiator Tester Relationship Specialty Start Date End Date Lovely Vicente MD PCP - General 04/16/15 [facility] [address] [place] [address] documented as of this encounter
--- OUTSIDE RECORDS SUMMARY | 2022-04-06 10:42 | XMS_ITS | Encounter Summary ---
:1945 [place] [address] Care Team Providers Name Role Phone Lovely Vicente MD Primary Care Provider Reason for Visit Reason Onset Date Comments Questions 07/16/2017 fluid retention Encounter Details Date Type Department Care Team Description 07/16/2017 Telephone Cardiology at [facility] Martha Comer, Questions ([facility] RN retention ) [place] [address] Social History Tobacco Use Types Packs/Day [...] the direct number to the HF team ([phone]). She is aware of his appt with CONCRETE SAW OPERATOR Hans on 07/21/17 and the need for labs prior to that visit. verbalized good understanding of the current POC. documented in this encounter Plan of Treatment Upcoming Encounters Date Type Specialty Care Team Description 05/28/2022 Appointment Cardiology Zulma Dolan MD [facility] [address] [place], [place] [address] (Wo rk) 05/28/2022 Laboratory Appointment Lab 05/28/2022 Office Visit Cardiology Zulma Dolan [place] [address] Liz Poole PA [facility] [place] [address] 06/10/2022 Office Visit Dermatology Laura Scherer MD [facility] DR [address] [place], [place] [address] (Wo rk) documented as of this encounter Visit Diagnoses Not on filedocumented in this encounter Care Teams Representative Government Relations Relationship Specialty Start Date End Date Lovely Vicente MD PCP - General 04/16/[address] [place] [address] documented as of this encounter
--- OUTSIDE RECORDS SUMMARY | 2022-04-06 10:42 | XMS_ITS | Encounter Summary ---
:1945 [place] [address] Care Team Providers Name Role Phone Lovely Vicente MD Primary Care Provider Reason for Visit Reason Comments Hospital Transfer cold foot post CABG Auth/Cert Specialty Diagnoses / Procedures Referred By Contact Refer red To Contact Diagnoses Critical lower limb ischemia Procedures NAYE IPI Referral ID Status Reason Start Date Expiration Date Visits Requ ested Visits Authorized [id number] 1 1 Encounter Details Date Type Department Care Team Description 07/20/2017 Hospital Encounter 4 Herminia Ibarra MD [facility] [place] [address] Critical lower limb [facility] Arik Clement MD [facility] [place] [address] [place] [address] Social History Tobacco Use Types Packs/Day Years [...] home. Important Studies and Lab Data: Labs: TRIRIGAgs Lab Results Component Value Date INR 1.5 [...] For any problems or questions please call [phone] ZELDA Smith, lead injection mold technician Nurse Clinician For issues on weeknights after 5pm and weekends please call [phone] and ask for the Vascular Fellow wheelchair van operator first responder. General Instructions None Future Appointments and Orders Future Appointments Provider Department Dept Phone 08/04/2017 1:00 PM Daniele Mooney [place] [facility] [place] [phone] 08/04/2017 2:15 PM Arik Clement MD [facility] [place] [phone] 09/07/2017 3:00 PM MAYRA CHACON Lab [facility] [phone] 09/07/2017 4:00 PM Luz Prescott MD Endocrinology at [place] [phone] Future Orders Complete By Expires Arterial Duplex Leg, Unil [VAS32 Custom] 07/27/2017 (Approximate) 01/26/2018 Process Instructions: There is no in-house vascular slab puller available on weeknights (5pm-8am), weekends, or holidays. IF THIS IS A REQUEST FOR AN EMERGENT STUDY DURING THOSE HOURS, please have the senior provider responsible for the patient page the Vascular Surgery Fellow/Senior Resident wheelchair van operator first responder to discuss options. Scheduling Instructions: Questions: Indication for study/signs & symptoms: Right femoral PSA s/p cardiac cath Question to be answered: bloodflow to PSA Laterality: Right Is there a RIGHT LOWER EXTREMITY graft?: No Lower limb right segments: Common Femoral Is there a stent?: No At which location will this be performed?: [place] Referral to Home Health - at DISCHARGE [[id number] CPT(R)] As directed Process Instructions: Scheduling Instructions: Comments: DOCUMENTATION FOR VNA SERVICES (INCLUDING THOSE PATIENTS WITH MEDICARE COVERAGE REQUIRING HOME VNA SERVICES AND/OR HOSPICE SERVICES) PATIENT'S LOCATION: Gregory Fatima [address] [place] [address] [place] [id number] (home) Cell: Telephone Information: Oil Well Engineer's Name: self In discussion with the attending physician, it is certified that this patient is under their care and that they, or a Nurse Practitioner,Clinical Nurse specialist or Physician Helicopter Repairer who is working directly with them, had [...] [facility] ([facility] [place] [facility]-is in [place] PHONE: [phone] FAX: [phone] Start of care: 24- 48 hours FOR [...] patient'sPCP: Lovely Vicente MD [address] [facility] [place] / [place] [address] All VNA agencies which cover the area [...] For any problems or questions please call [phone] ZEDLA Smith, lead injection mold technician Nurse Clinician For issues on weeknights after 5pm and weekends please call [phone] and ask for the Vascular Fellow wheelchair van operator first responder. documented in this encounter Medications at Time [...] referrals are placed. Patient requests referral to [facility] [employer]. PHONE: [phone] FAX: [phone]. Expected date of discharge: 07/20/2017 . Referral routed to the Manager Specialty for matching with agency/vendor and to provide any required information. Naty Pulliam RN - 07/20/2017 11:37 AM EST The patient/digital sales representative has been provided a list of Home Health Agencies/DME vendors which serve their preferred geographic area. A letter describing our affiliations was reviewed with them and theywere educated about their right to choose where referrals are placed. Patient requests referral to [facility] ([facility] [place] [facility]- is in [facility] PHONE: [phone] FAX: [phone]. Expected date of discharge: 07/20/2017 . Referral routed to the Manager Specialty for matching with agency/vendor and to provide any required information. Katina Pulliam RNinteractive multimedia designer Janneth Lee MD - 07/20/2017 7:29 AM [...] SETUP performed by Manny Mcknight MD at [facility] MAIN OR ??? PRO CABG, ARTERIAL, SINGLE N/A 07/07/2017 @CABG, USING ARTERIAL GRAFT;SINGLE ARTERIAL GRAFT (WRVU 33.75) performed by Yuan Retana MD at [facility] MAIN OR ??? PRO CABG, ARTERY-VEIN, TWO N/A 07/07/2017 @CABG, TWO VENOUS GRAFTS & ARTERIAL GRAFT (WRVU 7.93) performed by Yuan Retana MD at [facility] MAIN OR ??? PRO COLONOSCOPY, REMV LESN, SNARE 01/16/2014 COLONOSCOPY, POLYPECTOMY, REMOVAL LESION BY SNARE performed by Nohemi Jaimes MD at [facility] ENDOSCOPY ??? PRO ENDOSCOPY W/VIDEO-ASST VEIN HARVEST, CABG Right 07/07/2017 ENDOSCOPIC HARVEST VEIN(S) FOR CABG (WRVU 0.31) performed by Yuan Retana MD at [facility] MAIN OR ??? PRO THYROIDECTOMY 03/28/2013 THYROIDECTOMY, TOTAL OR COMPLETE performed by Manny Mcknight MD at [facility] MAIN OR Functional Status/Social Hx: [...] PMH of hypertension, hyperlipidemia, DM 2, MARIA IVCTORIA on CPAP who was admitted 06/25/17 with [...] -ISS -pain control Discussed with Vascular Fellow wheelchair van operator first responder. Chris Valadez MD PGY2 Pager [phone] documented in this encounter ED Notes Annita Reaves MD - 07/20/2017 3:15 PM EST Emergency Department Gregory Fatima is a 72 y.o. male who presents to [facility] with arterial thrombosis. History of Present Illness [...] Within the Past 30 Days: [facility] 07/05/17 Anticipated Length Of Stay (If known): [...] Health/Prescription Coverage: Primary Insurance: MEDICARE Secondary Insurance: [employer] [facility] Prescription Coverage: See above Preferred Pharmacy: [facility] Other: N/A Primary Care Provider: Lovely Vicente MD [phone] Patient/Caregiver Goals of Treatment: Patient plans to return home when medically ready Potential Needs for Transition of Care: Rehab/SNF: N/A Home Health: Yasmani [facility] ([facility] [place] [facility]-is in [place] PHONE: [phone] FAX: [phone] DME: N/A Dialysis: N/A Community Resources: N/A Transportation: Patient family will transport Other: N/A Anticipated Barriers to Discharge/Special Considerations: None Plan: Patient plans to return home with home health services when medically ready A member of the Care Management team will continue to monitor progress, follow for continuity of care and assist with transition of care planning. Naty Pulliam, RN Pager: [phone] ED Triage - Rayna Weir RN - 07/20/2017 12:28 AM EST Pt transferred from [place] for blue right foot and painful [...] Dolan MD [facility] [address] [place], [place] [address] (Wo rk) 05/28/2022 Laboratory Appointment Lab 05/28/2022 Office Visit Cardiology Zulma Dolan MD [facility] [place] [address] Liz Poole PA [facility] [place] [address] 06/10/2022 Office Visit Dermatology Laura Scherer MD [facility] DR [address] [place], [place] [address] (Wo rk) documented as of this encounter Procedures Procedure Name Priority Date/Time Associated Comments Diagnosis TEXTILE KNITTER SCAN 09/02/2017 12:00 Res ults for this [...] EST procedure are i n ([facility] the results section. APTT STAT [...] documented in this encounter Results SCAN DOC: TEXTILE KNITTER (09/02/2017 12:00 AM EST) Narrative 09/02/2017 12:00 AM EST This result has an attachment that is no t available. Ordered by an unspecified provider. Scanning Provider MEDIA MGR SCAN EXT ORDR/RSLT POCT Glucose (07/20/2017 12:04 PM EST) P athologist Signature POC Glucose 189 65 - 199 [facility] mg/dL [facility] [...] Organization Address City/State/[place] [address] (ABNORMAL) Differential, Automated (07/20/2017 10:34 AM EST) Patholo gist Method Time Signature Neutrophils % 84.3 % [facility] LABORATORY Neutr Abs (ANC) 14.27 (H) 1.70 - [facility] 6.10 [facility] x10(3)/[facility] LABORATORY Lymphocytes % 5.6 % [facility] LABORATORY Lymphocytes Abs 1.0 0.9 - 3.2 [facility] x10(3)/[facility] LABORATORY Monocytes % 6.1 % [facility] LABORATORY Monocyte Abs 1.0 (H) 0.3 - 0.9 [facility] x10(3)/[facility] LABORATORY Eosinophils % 2.4 % [facility] LABORATORY Eosinophils Abs 0.4 0.0 - 0.4 [facility] x10(3)/[facility] LABORATORY Basophils % 0.5 % [facility] LABORATORY Basophils Abs 0.1 0.0 - 0.1 [facility] x10(3)/[facility] LABORATORY Immature Gran % 1.10 % [facility] LAB[facility] Comment: Immature granulocytes(IG's)percentage an d absolute count will include metamyelocytes, myelocytes, and promyelo cytes. Blood smears from CBCs yielding IG's will be scanned manually for concor dance. If this scan disagrees with the automated IG or if promyelocytes are not ed, a manual differential will be performed. Melisa Gran Abs 0.19 (H) 0.00 - 0.04 x10(3)/[facility] LABORATORY Specimen Anatomical Collection Method Collection Time Receive d Time (Source) Location / / Volume Laterality Blood specimen 07/20/2017 10:34 7 (specimen) AM EST 10:39 AM EST Resulting Agency Comment Spec In Lab Arik Clement MD HEMATOLOGY ORDERABLES Performing Organization Address City/State/[place] [address] (ABNORMAL) Hemogram (07/20/2017 10:34 AM EST) Analysis Performed At Patho logist Time Signature WBC 17.0 (H) 4.0 - 9.[address] [address] x10(3)/[facility] LABORATORY RBC 3.70 (L) 4.58 - [facility] 5.54 [facility] x10(6)/[facility] LABORATORY Hemoglobin 10.8 (L) 13.7 - [facility] 16.5 gm/dL [facility] LABORATORY Hematocrit 33.4 (L) 40.5 - [facility] 48.5 % [facility] LABORATORY MCV 90.3 82.9 - [facility] 93.1 [facility] LABORATORY MCH 29.2 27.5 - [facility] RYAN 32.1 pg [facility] LABORATORY MCHC 32.3 32.0 - [facility] RYAN 35.7 gm/dL [facility] LABORATORY Platelets 211 145 - 357 [facility] x10(3)/[facility] LABORATORY RDWSD 49.1 (H) 36.0 - [facility] RYAN 45.0 [facility] LABORATORY RDWCV 14.7 (H) 11.4 - [facility] RYAN 13.8 % [facility] LABORATORY MPV 9.2 7.6 - 12.[address] LABORATORY nRBC % Auto 0.0 % [facility] LABORATORY nRBC Abs Auto 0.000 0.000 - [place] RAYN 0.000 [facility] x10(3)/[facility] LABORATORY Specimen Anatomical Collection Method Collection Time Receive d Time (Source) Location / / Volume Laterality Blood specimen 07/20/2017 10:34 7 (specimen) AM EST 10:39 AM EST Resulting Agency Comment Spec In Lab Arik Clement MD HEMATOLOGY ORDERABLES Performing Organization Address City/State/[place] [address] (ABNORMAL) APTT (07/20/2017 10:34 AM EST) athologist Signature PTT 79 (H) 25 - 35 sec [facility] LABORATORY Comment: The recommended therapeutic range for fu ll dose, unfractionated heparin at [facility] is 80 ? 114 seconds. The use [...] Clement MD HEMATOLOGY ORDERABLES Performing Organization Address City/[facility]/[place] [address] POCT Glucose (07/20/2017 7:41 AM EST) athologist Signature POC Glucose 174 65 - 199 [facility] mg/dL [facility] LABORATORY Comment: Supplemental ranges: <140 mg/dL before meals <180 mg/dL all other times of the day Specimen Anatomical Collection Method Collection Time Receive d Time (Source) Location / / Volume Laterality Blood specimen 07/20/2017 7:41 AM 017 7:41 (specimen) EST AM EST Arik Clement MD POINT OF CARE TEST ORDERABLE S Performing Organization Address City/[facility]/ZIP Code Phon e Number [address] JULIAN, legs, multiple levels (07/20/2017 7:33 AM EST) Component Value Ref Test Analysis Performed At Patholo gist Range Method Time Signature VB Text Department: Vascular Surgery Lab VASCUBASE Report Patient: [id number] (GREGORY FATIMA) CPT: 60154 ICD10: I75.021;I99.8 Referring Physician: ARIK CLEMENT ?? [...] 1.26 ??Triphasic ? Posterior Tibial (Ankle) Art anlia ??157 ? 1.12 ??Triphasic ? Great Toe [...] Department: Vascular Surgery Lab VASCUBASE Report Patient: [id number] (GREGORY FATIMA) CPT: 88435 ICD10: I97.610;I99.8 Referring Physician: ARIK CLEMENT ?? [...] Signature POC Glucose 199 65 - 199 [facility] mg/dL [facility] LABORATORY Comment: Supplemental ranges: <140 mg/dL before meals <180 mg/dL all other times of the day Specimen Anatomical Collection Method Collection Time Receive d Time (Source) Location / / Volume Laterality Blood specimen 07/20/2017 3:41 AM 017 3:41 (specimen) EST AM EST Arik Clement MD POINT OF CARE TEST ORDERABLE S Performing Organization Address City/[facility]/ZIP [facility] [place] [address] Lactate, whole blood, send to lab (Leb/CGP) (07/20/2017 2:25 AM EST) athologist Signature Lactate WB 2.0 0.5 - 2.2 [facility] mmol/L [facility] LABORATORY Specimen Anatomical Collection Method Collection Time Receive d Time (Source) Location / / Volume Laterality Blood specimen Venous Draw / 07/20/2017 2:25 AM 2016 2:37 (specimen) Unknown EST AM EST Resulting Agency Comment Spec In Lab Zulma Samuel MD CHEMISTRY ORDERABLES Performing Organization Address City/[facility] Code Phon e Number [address] (ABNORMAL) APTT (07/20/2017 2:25 AM EST) athologist Signature PTT 36 (H) 25 - 35 sec [facility] LABORATORY Comment: The recommended therapeutic range for fu ll dose, unfractionated heparin at [facility] is 80 ? 114 seconds. The use [...] Reaves MD HEMATOLOGY ORDERABLES Performing Organization Address City/[facility]/[place] [address] (ABNORMAL) Prothrombin Time (07/20/2017 2:25 AM EST) athologist Signature PT 17.7 (H) 11.8 - 14.0 [facility] [...] Organization Address City/State/[place] [address] (ABNORMAL) Basic Metabolic Panel (non-fasting) (07/20/2017 2:25 AM EST) P athologist Signature Glucose Lvl 187 65 - 199 [facility] mg/dL [facility] LABORATORY Comment: Diabetes: >=200 mg/dL plus symp toms BUN 35 (H) 10 - 20 mg/dL [facility] LABORATORY Creatinine 1.51 (H) 0.80 - 1.50 mg/dL [facility] LABORATORY Sodium 134 (L) 135 - 145 mmol/L [facility] LABORATORY Potassium Not Perf 3.5 - 5.0 mmol/L [facility] LABORATORY Comment: Specimen hemolyzed. Called by: [facility], Read back by: Chitra Orantes, Date/Time:07/20/17 03:05. Please note: ??Patients with WBC >100,00 0 may have falsely elevated Potassium levels. ??For accurate Potassium quantif ication in these patients send serum separator tube (gold top) for subsequent determinations. ??Contact the Clinical Chemistry Laboratory if there are any qu estions. Chloride 92 (L) 98 - 107 mmol/L [facility] LABORATORY CO2 29 22 - 31 mmol/L [facility] LABOR[facility] Anion Gap 13 5 - 15 mmol/L [facility] LABORATORY Calcium 8.6 8.5 - 10.5 mg/dL [facility] LABORATORY Estimated GFR 46 (L) >=60 [facility] LABORATORY Comment: The reported eGFR should be multiplied b y 1.2 for patients. The MDRD is not an appropriate measure o f renal function for patients with body mass extremes or in patients with acute kidney failure. http://myDocket/DHnkdep http://myDocket/DHMCnkf Specimen Anatomical Collection Method Collection Time Receive d Time (Source) Location / / Volume Laterality Blood specimen 07/20/2017 2:25 AM 017 2:33 (specimen) EST AM EST Resulting Agency Comment Spec In Lab Annita Reaves MD CHEMISTRY ORDERABLES Performing Organization Address City/State/ZIP Code Phon e Number [place] [id number] documented in this encounter [...]
Routine documented in this encounter Care Teams High Density Press Operator Relationship Specialty Start Date End Date Lovely Vicente MD PCP - General 04/16/[address] [place] [address] documented as of this encounter
--- OUTSIDE RECORDS SUMMARY | 2022-04-06 10:42 | XMS_ITS | Encounter Summary ---
:1945 [place] [address] Care Team Providers Name Role Phone Lovley Vicente MD Primary Care Provider Encounter Details Date Type Department Care Team Description 07/16/2017 Telephone Endocrinology at [facility] C Manuela Holliday, [facility] [place] [address] ENDOCRINOLOGY DEPT [phone] [place], [place] [address] (Wo rk) Social History Tobacco [...] Cardiology Zulma Dolan MD [facility] [address] [place], [place] [address] (Wo rk) 05/28/2022 Laboratory Appointment Lab 05/28/2022 Office Visit Cardiology Zulma Dolan MD [facility] [place] [address] Liz Poole PA [facility] [place] [address] 06/10/2022 Office Visit Dermatology Laura Scherer MD [facility] DR [address] [place], [place] [address] (Wo rk) documented as of this encounter Visit Diagnoses Not on filedocumented in this encounter Care Teams Hiv Counselor Relationship Specialty Start Date End Date Lovely Vicente MD PCP - General 04/16/[address] [place] [address] documented as of this encounter
--- OUTSIDE RECORDS SUMMARY | 2022-04-06 10:42 | XMS_ITS | Encounter Summary ---
:1945 Author Organization [facility] [place] [address] Care Team Providers Name Role Phone Lovely Vicente MD Primary Care Provider Reason for Visit Reason Comments Foot Pain Auth/Cert Specialty Diagnoses / Procedures Referred By Contact Refer red To Contact Diagnoses Ischemic foot Procedures NAYE OBSVO Referral ID Status Reason Start Date Expiration Date Visits Requ ested Visits Authorized [id number] 1 1 Encounter Details Date Type Department Care Team Description 07/27/2017 Emergency 1 [facility] Lokesh Swenson MD [facility] [place] [address] Femoral artery pseudo-aneurysm, right; [facility] Tam Bauman MD [facility] [place] [address] [place] [address] Social History Tobacco Use Types Packs/Day [...] Gregory Fatima Patient Age: 72 y.o. Language: Panamanian Race: White Ethnicity: Not nor Admit date: [...] please contact your inpatient physician through the [facility] Housekeeping Aide . Issues after hours and on [...] RLE critical limb ischemia, who presented to [facility] with worsening RLE pain. Pt post-op course after CABG was significant for paroxysmal Afib, and he was started on Coumadin given elevated [id number] score. He presented 2 weeks following that, on 07/20, with RLE pain/pallor andwas found to have critical limb ischemia in setting of subtherapeutic INR, pseudoaneurysm Rt TOUR GUIDE and occlusion b/l ant tibial arteries. He [...] in the last 7068 hours. Invalid input(s): [id number] Recent Labs 07/08/17 0400 07/07/17 0515 07/06/17 [...] (it was low at 1.6 here at [facility]) 7. Use the tramadol if dilaudid or tylenol is not working 8. Stop taking the potassium supplement - your blood potassium level was elevated. Ask your doctors at future visits if this should be restarted. 9. Antibiotic for 5 days recommended by cardiothoracic surgery for chest wound drainage Follow-Up Appointments Vascular surgery as previously schedule Your Inpatient Doctor(s) at [facility]: CARLOS ALBERTO ROSALES MD General Instructions None Future Appointments and Orders Future Appointments Provider Department Dept Phone 07/30/2017 8:30 AM OSWALDO, THREE L Lab 3L [facility] [phone] 07/30/2017 9:40 AM Danette Maxwell APRN [facility] [place] [phone] 08/04/2017 1:00 PM Daniele Mooney [place] [facility] [place] [phone] 08/04/2017 2:15 PM Arik Clement MD [facility] Surgery [facility] [place] [phone] 08/11/2017 10:00 AM [facility] ROOM 2 [facility]Ray [facility] [place] [phone] Please go to Gear Keeper Area 3T ([place] Location). 08/11/2017 11:00 AM Yuan Retana MD Cardiac Surgery [facility] [place] [phone] 09/07/2017 3:00 PM LAB, THREE L Lab 3L [facility] [phone] 09/07/2017 4:00 PM Luz Prescott MD [facility]ocrin[facility] [place] [phone] Discharge References/Attachments None documented in this encounter [...] (it was low at 1.6 here at [facility]) 3. Use the tramadol if dilaudid or tylenol is not working 4. Stop taking the potassium supplement - your blood potassium level was elevated. Ask your doctors at future visits if this should be restarted. 5. Antibiotic for 5 days recommended by cardiothoracic surgery for chest wound drainage Follow-Up Appointments Vascular surgery as previously schedule Your Inpatient Doctor(s) at [facility]: CARLOS ALBERTO ROSALES MD documented in this [...] Gas) No results found for: PHART, PO2ART, [id number] Assessment/Plan: 72 y.o. male s/p CABG in [...] intervention: Education Nutrition Recommendations: Recommend continuation of [facility], CHO2 diet order Patient and denied need [...] Orders Diet Daily Healthy Menu Choices/Cardiac diet ([facility]-Diet) 60/ CHO counting level 2 Frequency: Effective Now Number of Occurrences: Until Specified Admit Weight: 83.92 kg Estimated body mass index is 28.13 kg/(m^2) as calculated from the following: Height as of this encounter: 172.7 cm (5' 8). Weight as of this encounter: 83.9 kg (185 lb). [place] body weight: 68.4 kg (150 lb 12.7 [...] RLE critical limb ischemia, who presented to [facility] with worsening RLE pain. Visited with patient [...] spent >30 minutes (Day of Discharge Code 43275) involved in the final examination of the [...] Melanoma ID: 72 y.o. Male presents to [facility] with persistent pain b/l lower extremities History of Present Illness: HPI 72 y.o. male with PMH ASCVD s/p CABG (07/07/17), MARIA VICTORIA on CPAP QHS, HTN, HLD, DM2, with recent hospitalization for RLE critical limb ischemia, who presented to [facility] with worsening RLE pain. Pt post-op course after CABG was significant for paroxysmal Afib, and he was started on Coumadin given elevated [id number] score. He presented 2 weeks following that, on 07/20, with RLE pain/pallor andwas found to have critical limb ischemia in setting of subtherapeutic INR, pseudoaneurysm Rt TOUR GUIDE and occlusion b/l ant tibial arteries. He [...] 33.75) performed by [facility] Retana [facility] at [facility] [...] THYROIDECTOMY, TOTAL OR COMPLETE performed by Manny cMknight MD at [facility] MAIN OR Prior To Admission [...] Procedure Component Value Units Date/Time Blood culture [[id number]] Collected: 07/09/1739 Lab Status: Final result Specimen: Blood from Arm, Right Updated: 07/14/17701 Blood Culture No growth at 5 days. Blood culture [[id number]] Collected: 07/09/170 Lab Status: Final result Specimen: [...] limb ischemia following CABG, who presented to [facility] ED from home with persistent B/L LE [...] continued Diet Daily Healthy Menu Choices/Cardiac diet ([facility]-Diet) 60/60/75 CHO counting level 2Cardiac, low salt, CHO 2 Discharge planning Pending improvement in pain control PT/OT/Speech PT ordered Lines/Access PIV Ocasio catheter No DVT/GI Prophylaxis Lovenox bridge to Coumadin, SCD. Code status Full Code Family PCP Lovely Vicente MD [phone] Attestation Please see my note for details [...] - 07/27/2017 1:11 AM EST Report from [facility] [place]. Care assumed. Patient currently sitting on [...] encounter Miscellaneous Notes Plan of Care - [place]-Joyce Damian, PT - 07/27/2017 3:26 PM EST [...] Anticipated Discharge Disposition: home with assist Pager: [phone] JOYCE KING, PT Inpatient Physical Therapy 2017 [...] a lovenox bridge. Mr. Fatima returns to [facility] ED tonight because of ongoing pain in [...] 33.75) performed by Yuan Retana MD at [facility] [...] MD at [facility] MA[facility] OR MEDICATIONS: No current [...] up in clinic 1-2 weeks after discharge. [facility] Vascular Surgery Plan of Care - [...] Zulma Dolan MD [facility] [place], [place] [address] (Wo rk) 05/28/2022 Laboratory Appointment Lab 05/28/2022 Office Visit Cardiology Zulma Dolan MD [facility] [place] [address] Liz Poole PA [facility] [place] [address] 06/10/2022 Office Visit Dermatology Laura Scherer MD [facility] [address], [place] [address] (Wo rk) documented as of [...] section. TYPE AND SCREEN STAT 07/27/2017 12:53 ([facility]/CGP/SHANDA) AM EST BASIC METABOLIC PANEL STAT 07/27/2017 12:53 Re sults for this (NON-FASTING) AM EST procedure are in the results section. documented in this encounter Results POCT Glucose (07/27/2017 11:53 AM EST) P athologist Signature POC Glucose 175 65 - 199 [facility] mg/dL [facility] Comment: Supplemental [...] Address City/State/[place] [address] Arterial Duplex Leg, Unil (07/27/2017 7:40 AM EST) Component Value Ref Test Analysis Performed At Patholo gist Range Method Time Signature VB Text Department: Vascular Surgery Lab VASCUBASE Report Patient: [id number] (GREGORY FATIMA) CPT: 46104 ICD10: I97.610;I72.4;Z09 Referring Physician: TAM BAUMAN ?? [...] Bauman MD VASCULAR ORDERABLES Performing Organization Address City/[facility]/ZIP Code Phon e Number VASCUBASE POCT Glucose (07/27/2017 6:51 AM EST) P athologist Signature POC Glucose 96 65 - 199 [facility] mg/dL [facility] Comment: Supplemental ranges: <140 mg/dL before meals <180 mg/dL all other times of the day Specimen Anatomical Collection Method Collection Time Receive d Time (Source) Location / / Volume Laterality Blood specimen 07/27/2017 6:51 AM 018 6:51 (specimen) EST AM EST Tam Bauman MD POINT OF CARE TEST ORDERABLE S Performing Organization Address City/[facility]/ZIP [facility] Phon e Number [address] ABORH Recheck Status (07/27/2017 12:53 AM EST) Patholo gist Method Time Signature ABORH Type Completed [facility] LABORATORY Specimen Anatomical Collection Method Collection Time Receive d Time (Source) Location / / Volume Laterality Blood specimen 07/27/2017 12:53 8 (specimen) AM EST 12:58 AM EST Resulting Agency Comment Spec In Lab Angela Swenson MD BLOOD BANK ORDERABLES Performing Organization Address City/[facility]/[place] [address] Gold Tube HOLD (07/27/2017 12:53 AM EST) P athologist Signature Gold Hold Sample in [facility]. [facility] Specimen Anatomical Collection Method Collection Time Receive d Time (Source) Location / / Volume Laterality Blood specimen Venous Draw / 07/27/2017 12:53 07/27/19 18 1:01 (specimen) Unknown AM EST AM EST Angela Swenson MD CHEMISTRY ORDERABLES Performing Organization Address City/State/ZIP [place] [address] (ABNORMAL) Differential, Automated (07/27/2017 12:53 AM EST) Patholo gist Method Time Signature Neutrophils % 75.0 % [facility] Neutr Abs (ANC) 11.30 (H) 1.70 - [facility] 6.10 [facility] x10(3)/[facility] LABORATORY Lymphocytes % 9.9 % [facility] Lymphocytes Abs 1.5 0.9 - 3.2 [facility] x10(3)/[facility] LABORATORY Monocytes % 8.6 % [facility] Monocyte Abs 1.3 (H) 0.3 - 0.9 [facility] x10(3)/[facility] LABORATORY Eosinophils % 4.8 % [facility] Eosinophils Abs 0.7 (H) 0.0 - 0.4 [facility] x10(3)/[facility] LABORATORY Basophils % 0.8 % [facility] Basophils Abs 0.1 0.0 - 0.1 [facility] x10(3)/[facility] LABORATORY Immature Gran % 0.90 % [...] 0.00 - 0.04 x10(3)/[facility] LABORATORY Specimen Anatomical Collection Method Collection Time Receive d Time (Source) Location / / Volume Laterality Blood specimen 07/27/2017 12:53 8 1:00 (specimen) AM EST AM EST Resulting Agency Comment Spec In Lab Angela Swenson MD HEMATOLOGY ORDERABLES Performing Organization Address City/State/ZIP [place] [address] (ABNORMAL) Hemogram (07/27/2017 12:53 AM EST) Analysis Performed At Patho logist Time Signature WBC 15.0 (H) 4.0 - 9.5 [facility] x[facility](3[facility] LABORATORY RBC 3.59 (L) 4.58 - [facility] 5.54 [facility] x10(6)/[facility] LABORATORY Hemoglobin 10.3 (L) 13.7 - [facility] 16.5 gm/dL [facility] Hematocrit 32.6 (L) 40.5 - [facility] 48.5 % [facility] MCV 90.8 82.9 - [facility] 93.1 [facility] LABORATORY MCH 28.7 27.5 - [facility] RYAN 32.1 pg [facility] MCHC 31.6 (L) 32.0 - [facility] 35.7 gm/dL [facility] Platelets 322 145 - 357 [facility] x10(3)/[facility] RDWSD 48.7 (H) 36.0 - [facility] RYAN 45.0 [facility] LABORATORY RDWCV 14.7 (H) 11.4 - [facility] RYAN 13.8 % [facility] MPV 8.9 7.6 - 12.9 [facility] LABORATORY nRBC % Auto 0.0 % [facility] nRBC Abs Auto 0.000 0.000 - [facility] RYAN 0.000 [facility] x10(3)/[facility] LABORATORY Specimen Anatomical Collection Method Collection Time Receive d Time (Source) Location / / Volume Laterality Blood specimen 07/27/2017 12:53 8 1:00 (specimen) AM EST AM EST Resulting Agency Comment Spec In Lab Angela Swenson MD HEMATOLOGY ORDERABLES Performing Organization Address City/State/[place] [address] Antibody screen (07/27/2017 12:53 AM EST) Patholo gist Method Time Signature Ab Screen Negative [facility] LABORATORY Expires at 07/30/2017 KATALINA ZHAORYAN [id number] on: [facility] Specimen Anatomical Collection Method Collection Time Receive d Time (Source) Location / / Volume Laterality Blood specimen 07/27/2017 12:53 8 (specimen) AM EST 12:58 AM EST Resulting Agency Comment Spec In Lab Angela Swenson MD BLOOD BANK ORDERABLES Performing Organization Address City/[facility]/[place] [address] ABO/Rh Typing (07/27/2017 12:53 AM EST) P athologist Signature ABORh Type O Pos [facility] Specimen Anatomical Collection Method Collection Time Receive d Time (Source) Location / / Volume Laterality Blood specimen 07/27/2017 12:53 8 (specimen) AM EST 12:58 AM EST Resulting Agency Comment Spec In Lab Angela Swenson MD BLOOD BANK ORDERABLES Performing Organization Address City/[facility] [place] [address] (ABNORMAL) Prothrombin Time (07/27/2017 [...] Organization Address City/State/[place] [address] (ABNORMAL) Basic Metabolic Panel (non-fasting) (07/27/2017 12:53 AM EST) athologist Signature Glucose Lvl 95 65 - 199 [facility] mg/dL [facility] Comment: Diabetes: >=200 mg/dL plus symp toms BUN 37 (H) 10 - 20 mg/dL [facility] Creatinine 1.49 0.80 - 1.50 [...] HOSPITAL LABORATORY Estimated GFR 46 (L) >=60 [facility] Comment: The reported eGFR should be multiplied b y 1.2 for patients. The MDRD is not an appropriate measure o f renal function for patients with body mass extremes or in patients with acute kidney failure. 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
Routine documented in this encounter Care Teams Staff Nurse Midwife Relationship Specialty Start Date End Date Lovely Vicente MD PCP - General 04/16/15 [facility] [address] [facility] [address] [place] [address] documented as of this encounter
--- OUTSIDE RECORDS SUMMARY | 2022-04-06 10:42 | XMS_ITS | Encounter Summary ---
:1945 Author Organization [facility] [place] [address] Care Team Providers Name Role Phone Lovely Vicente MD Primary Care Provider Reason for Visit Reason Comments Follow-up Encounter Details Date Type Department Care Team Description 07/29/2017 Office Visit Cardiac Surgery at [facility] Yuan Retana MD S/P CABG x 3 [facility] [place] [address] CARDIOTHORACIC SURGERY [phone] [place], [place] [address] (Wo rk) Social History [...] evaluation by vascular surgery. Yuan Retana MD [phone] documented in this encounter Plan of Treatment Upcoming Encounters Date Type Specialty Care Team Description 05/28/2022 Appointment Cardiology Zulma Dolan MD [facility] er [address] [place] [address] (Wo rk) 05/28/2022 Laboratory Appointment Lab 05/28/2022 Office Visit Cardiology Zulma Dolan MD [facility] [place] [address] [facility] [place] [address] 06/10/2022 Office Visit Dermatology Laura Scherer MD [facility] [address] [place], [place] [address] (Wo rk) documented as of this encounter Visit Diagnoses Diagnosis S/P CABG x 3 Postsurgical aortocoronary bypass status documented in this encounter Care Teams Airplane Technician Relationship Specialty Start Date End Date Lovely Vicente MD PCP - General 04/16/[address] [place] [address] documented as of this encounter
--- OUTSIDE RECORDS SUMMARY | 2022-04-06 10:43 | XMS_ITS | Encounter Summary ---
:1945 Author Organization [facility] [place] [address] Care Team Providers Name Role Phone Lovely Vicente MD Primary Care Provider Reason for Referral Consultation (Routine) - Closed Specialty Diagnoses / Referred By Contact Referred To Contact Procedures Cardiac Rehabilitation Diagnoses S/P CABG x 3 Yuan Webber, Cardiac Rehab, [address] [place] CARDIOTHORACIC [address] [place] [address] Referral ID Status Reason Start Date Expiration Date Visits V isits Requested Authorized [id number] Closed Consult, 07/14/2017 01/10/2018 36 36 Test & Treat Reason for Visit Auth/Cert Specialty Diagnoses / Procedures Referred By Contact Refer red To Contact Diagnoses STEMI (ST elevation myocardial infarction) NSTEMI STEMI Procedures CARDIAC CATHETERIZATION NAYE IPI Referral ID Status Reason Start Date Expiration Date Visits Requ ested Visits Authorized [id number] 1 1 Encounter Details Date Type Department Care Team Description 07/05/2017 - Hospital Encounter Cardiac Special Daphne Shahid MD [facility] [place] [address] Non-ST elevation myocardial infarction ( NSTEMI); 07/14/2017 Care Unit Yuan Preciado MD [facility] [place] [address] S/P CABG x 3 [place] [id number] Social History Tobacco Use Types Packs/Day Years [...] Patient Age: 72 y.o. Birthdate: 1945 Language: Pakistani Race: White Ethnicity: Not nor Admit Date: [...] , @ 1:20p Patient to follow-up with Ventilated Rib Fitter/heart failure team in one week. An appointment will be made for you. You may call [phone] Patient to follow-up with Cardiac Surgery, Dr. Yuan Webber, in ~ 4 weeks with CXR, EKG. Inpatient Provider Contact Information: [facility] Section of Cardiac Surgery [facility] [address] FAX [phone] Discharge Diagnoses (Hospital Problems) Primary Diagnoses: CAD [...] 33.75) performed by Yuan Webber MD at [facility] MAIN OR ??? PRO CABG, ARTERY-VEIN, TWO N/A 07/07/2017 @CABG, TWO VENOUS GRAFTS & ARTERIAL GRAFT (WRVU 7.93) performed by Yuan Webber MD at [facility] MAIN OR ??? PRO COLONOSCOPY, REMV LESN, SNARE 01/16/2014 COLONOSCOPY, POLYPECTOMY, REMOVAL LESION BY SNARE performed by Nohemi Jaimes MD at [facility] ENDOSCOPY ??? PRO ENDOSCOPY W/VIDEO-ASST VEIN HARVEST, CABG Right 07/07/2017 ENDOSCOPIC HARVEST VEIN(S) FOR CABG (WRVU 0.31) performed by Yuan Webber MD at [facility] MAIN OR ??? PRO THYROIDECTOMY 03/28/2013 THYROIDECTOMY, TOTAL OR COMPLETE performed by Manny Mcknight MD at [facility] MAIN OR Prior To Admission Medications Prescriptions Prior to Admission Medication Sig Dispense Refill Last Dose ??? levothyroxine (SYNTHROID) 175 mcg Tablet Take 1 tablet by mouth daily. 90 tablet 3 07/05/2017 [id number] ??? ascorbic acid, vitamin C, (VITAMIN C) [...] Hospital Course: Gregory Hoang was admitted to [facility] on 07/05/2017 via the Cardiology Service. During his hospital course, he was taken emergently to the skill labor for an ongoing STEMI. An IABP was [...] not take or discontinue any prescription or yglq-yfw-ccsnpqm medications without asking your doctor or pharmacist [...] day to have your insulin doses adjusted. [facility] [place]ocrine [place] Discharge Instructions: Call your doctor if: You have a fever of greater than 101 degrees, shaking chills, if you develop redness or drainage from your incision sites, or if you have questions. Please call your surgeon's office if you have any discharge or drainage from your chest incision. Your surgeon, Dr. Yuan Webber and/or the Cardiac Surgery Physician World Travel Counselor Team may be reached at . Weight: [...] Dr. Yuan Webber. You may use a [place] Track or treadmill but avoid any pulling [...] with the surgeon. Do not ride motorcycles, [employer]'s tractors or horses. Avoid the use of [...] , @ 1:20p Patient to follow-up with Ventilated Rib Fitter/heart failure team in one week. Appointment will be made for you. You may call [phone] Patient to follow-up with Cardiac Surgery, Dr. [...] THREE L Lab 3L [facility] [phone] 09/07/2017 4:00 PM Luz Prescott MD Endocrinology at [place] [phone] Future Orders Complete By Expires EKG 12 Lead [EKG1 Custom] 08/14/2017 02/13/2018 Process Instructions: Scheduling Instructions: Questions: Which location will this be performed?: [place] Is a rhythm strip needed?: No If EKG Reason is Pre-op Evaluation, indicate diagnosis for surgery.: XR Chest PA & Lateral (Generic) [[id number] Custom] 08/14/2017 02/13/2018 Process Instructions: Scheduling Instructions: Questions: Where will study be performed?: [place] [facility] Portable exam?: Reason for exam and clinical history: CABG x 3 Other pertinent information: Stat read required?: Date of injury if applicable: Requested Time: Referral to Cardiac Rehab [[id number] Custom] As directed Process Instructions: If no progress note charted, please enter Clinical details in comments. Scheduling Instructions: Questions: My question or request is: s/p CABG. Cardiac rehab at [facility] Referral to Home Health - at DISCHARGE [YKA1920 CPT(R)] As directed Process Instructions: Scheduling Instructions: Comments: DOCUMENTATION FOR VNA SERVICES (INCLUDING THOSE PATIENTS WITH MEDICARE COVERAGE REQUIRING HOME VNA SERVICES AND/OR HOSPICE SERVICES) PATIENT'S LOCATION: Gregory Hoang [address] [place] [address] [place] [id number] (home) Telephone Information: Compliance Review Officer's Name: self In discussion with the attending physician, it is certified that this patient is under their care and that they, or a Nurse Practitioner, or Physician World Travel Counselor who is working directly with them, had [...] M[facility]ia ([facility] [place] [facility]-is in [place]) PHONE: [phone] FAX: [phone] RN orders: Cardiopulmonary assessment, incisional assessment, assess vital signs, assessment of rehab progress, medication management and effectiveness, home safety evaluation. Please draw INR if indicated and send result to:Dr Vicente [phone] PT ORDERS: Continue rehab for endurance, gait stability and strength with mobility and transfers. Home safety evaluation. Home exercise program if appropriate. Start of Care Date:24-48 hours after discharge SPECIAL INSTRUCTIONS: For any follow up questions, needs, or issues please call the Cardiac Surgery Office at [phone] FOR MEDICARE ONLY: (please delete this section [...] OR AFTER 07/17/2017 Signed: Martha Teague APRN [facility] Section of Cardiac Surgery [facility] [place] [address] FAX [phone] Date: 07/14/2017 CC: MD Ivania Cr Betsy, PA [address] [place] [phone] documented in this encounter Discharge Instructions Discharge [...] day to have your insulin doses adjusted. [facility] Endocrine clinic office Patient InstructionsStMartha mcdonald APRN [...] not take or discontinue any prescription or qefb-aff-voaiaty medications without asking your doctor or pharmacist [...] juice or regular (not diet) soda 6 [employer] small box of raisins 4 glucose tablets [...] day to have your insulin doses adjusted. [facility] Endocrine clinic office ? Discharge Instructions: ?? Call your doctor if: You have a fever of greater than 101 degrees, shaking chills, if you develop redness or drainage from your incision sites, or if you have questions. Please call your surgeon's office if you have any discharge or drainage from your chest incision. Your surgeon, Dr. Yuan Webber and/or the Cardiac Surgery Physician World Travel Counselor Team may be reached at . ?? [...] Dr. Yuan Webber. You may use a [place] Track or treadmill but avoid any pulling [...] with the surgeon. Do not ride motorcycles, [employer] tractors or horses. Avoid the use of [...] @ 1:20p ?? Patient to follow-up with Ventilated Rib Fitter/heart failure team in one week. An appointment has been made for you, you can call [phone] ?? Patient to follow-up with Cardiac Surgery, [...] THREE L Lab 3L [facility] [phone] ?? 09/07/2017 4:00 PM Luz Prescott MD Endocrinology at [place] [phone] Future Orders Complete By Expires ?? EKG 12 Lead [EKG1 Custom] 08/14/2017 02/13/2018 ?? Process Instructions: ? Scheduling Instructions: ? Questions: ? Which location will this be performed?: [place] ?? Is a rhythm strip needed?: No ?? If EKG Reason is Pre-op Evaluation, indicate diagnosis for surgery.: ?? XR Chest PA & Lateral (Generic) [[id number] Custom] 08/14/2017 02/13/2018 ?? Process Instructions: ? Scheduling Instructions: ? Questions: ? Where will study be performed?: [place] [facility] ?? Portable exam?: ?? Reason for exam and clinical history: CABG x 3 ?? Other pertinent information: ?? Stat read required?: ?? Date of injury if applicable: ?? Requested Time: ?? Referral to Cardiac Rehab [[id number] Custom] As directed ? Process Instructions: ?? [...] RN - 07/14/2017 2:34 PM EST The patient/dermatology sales representative has been provided a list of Home Health Agencies/DME vendors which serve their preferred geographic area. A letter describing our affiliations was reviewed with them and theywere educated about their right to choose where referrals are placed. Patient requests referral to [facility] PHONE: [phone] FAX: [phone] Expected date of discharge: 07/14 Referral routed to the Railway Switch Operator for matching with agency/vendor and to [...] day to have your insulin doses adjusted. [facility] Endocrine clinic office Kathie Carrera APRN [facility] Endocrinology Diabetes Management Pager [phone] minutes of this 35 minute visit was spent with the patient in counseling on diabetes and treatment plan, reviewing all glucose and insulin data as well as relevant laboratory results with the patient, and coordination of care on the inpatient unit including nursing and primary team. Zulma Andres, RN - 07/14/2017 10:30 AM EST The patient/dermatology sales representative has been provided a list of Home Health Agencies/DME vendors which serve their preferred geographic area. A letter describing our affiliations was reviewed with them and theywere educated about their right to choose where referrals are placed. Patient requests referral to : Yasmani Munguia ([facility] [place] [facility]-is in [place]) PHONE: [phone] FAX: [phone]. Expected date of discharge: 07/14/17 Referral routed to the Railway Switch Operator for matching with agency/vendor and to [...] hours. If BG remains greater than 240, [id number] units (no more than three times) &??call [...] Will continue to follow Katerin Azul APRN [facility] Endocrinology Diabetes Management Pager [phone] minutes of this 25 minute visit [...] of infiltration/extravasation Discussed plan of care with JAVA WEB USER INTERFACE DEVELOPER and RN. Elevate exrtemity and apply intermittent Warm compresses. Name of MD contacted Dr. Shaw Brown 07/13/2017 @ 0674 Name of RN contacted Ale Rangel RN Name of Pharmacist if consulted NA Name of Plastics MD ( if consulted) NA (Mandatory photo for infiltrations/ extravasations scoring a stage 2 or greater, but recommended forstage 1)( include measuring tape and identifier in the photo) RAILROAD DESIGN CONSULTANT CARING FOR THIS PATIENT WILL CONTINUE [...] measuring tape and identifier in the photo) RAILROAD DESIGN CONSULTANT CARING FOR THIS PATIENT WILL CONTINUE [...] regard to both infiltrates addressed by this television writer.All of Mr. Hoang's responses were entirely appropriate. Images of infiltrates attached here. Martha Sharp APRN - 07/13/2017 8:01 AM EST Cardiac Surgery Progress Note: ID: [id number] 72 year old male POD#6 s/p CABGx3 [...] discharge. ?? I have met with the patient/dermatology sales representative to discuss discharge planning needs. I have provided the [facility], Office of Care Management letter from the [employer] pertaining to rehab referrals. I have also provided a letter describing our affiliations within the [facility] and educated them about their right to choose where referrals are placed. ?? I reviewed the different levels of rehab including SNF, swing, acute and LTAC with the patient/dermatology sales representative. ?? The patient/dermatology sales representative has been provided a list of facilities within their preferred geographic area. ?? I have requested that the patient/dermatology sales representative provide at least three choices for referral. ?? The patient/dermatology sales representative have requested referrals to: ?? 1. . ?? 2. [place] ?? 3. More to be entered ?? Expected date of discharge: 07/14 Note routed to Railway Switch Operator who will communicate referrals to facilities [...] continue to follow Katerin Patel. STACIE Azul [facility] Endocrinology Diabetes Management Pager [phone] 20 minutes of this 35 minute visit was spent with the patient in counseling on diabetes and treatment plan, reviewing all glucose and insulin data as well as relevant laboratory results with the patient, and coordination of care on the inpatient unit including nursing and primary team. Makayla Stevenson APRN - 07/12/2017 9:52 AM EST Cardiac Surgery Progress Note: ID: [id number] 72 year old male POD#5 s/p CABGx3 [...] 07/11/2017 7:18 PM EST Patient arrived from [facility]. VSS. MSI dressing pulled off [...] hours. If BG remains greater than 240, [id number] units (no more than three times) & [...] AM EST Cardiac Surgery Progress Note: ID: [id number] 72 year old male POD#4 s/p CABGx3 [...] hours. If BG remains greater than 240, zrajtf07 units (no more than three times) & [...] AM EST Cardiac Surgery Progress Note: ID: [id number] 72 year old male POD#3 s/p CABGx3 [...] Gas) No results found for: PHART, PO2ART, JIA8IGW Assessment/Plan: 72 year old male POD#3 s/p [...] Encounter Note Patient Name: Gregory Hoang : [id number] MR#: [id number] Admit Date: 07/05/2017 4:20 PM Hospital Day 4 days Narrative: Patient was sitting in chair, hugging heart pillow, opened his eyes, nodding to come into room Assessment: Patient was sleepy. Intervention and Outcome: Introduced reinsurance accountant services and patient reached his hand out in appreciation. Follow-up: Flower Machine Operator remains available for support. Time [...] 07/09/2017 10:45 AM EST Report given to property staff accountant to cover care Maddison Cee PA - 07/09/2017 9:00 AM EST Cardiac Surgery Progress Note: ID: [id number] 72 year old male POD#2 s/p CABGx3 [...] Attending Surgeon on rounds. Signed: STEPHANIE Iqbal [facility] Section of Cardiac Surgery Date: 07/09/[address] [facility] - 07/09/2017 1:[address] [...] when IABP d/c'ed. Gretchen Carolina, PT Pager [phone] Maddison Cee PA - 07/08/2017 11:27 AM EST Cardiac Surgery Progress Note: ID: [id number] 72 year old male POD#1 s/p CABGx3 [...] Attending Surgeon on rounds. Signed: STEPHANIE Iqbal [facility] Section of Cardiac Surgery Date: [...] unit. NICK SEGAL MD 07/08/[address] [facility] - 07/08/2017 4:[address] [...] in place in R femoral. No hematoma. ELECTRICAL UNIT REBUILDER- Intact Psych- Anxious Skin- Dry, no peripheral [...] intact. IABP in place in R femoral. ELECTRICAL UNIT REBUILDER- Intact Psych- Anxious Skin- Dry, no peripheral [...] note for details. DAPHNE SHAHID MD Pager [phone] Jet Mckenna MD - 07/05/2017 6:48 PM EST Preliminary Cardiac Catheterization Procedure Note: Procedure(s) performed: Left heart cath, IABP insertion Access: Right SUPERVISOR BEET END-->8fr IABP A time-out was conducted prior to [...] effect. Heparin gtt maintained. Pt transferred to skill labor. documented in this encounter H&P Notes Daphne Shahid MD - 07/05/2017 6:08 PM EST CARDIOLOGY HISTORY & PHYSICAL EXAM Date of Admission: 07/05/2017 ( Hospital Day 0 days ) Responsible Attending: Daphne Shahid MD PCP: Lovely Vicente MD PCP#: [phone] Patient Active Problem List Diagnosis Code ??? [...] No significant valvular disease. Taken to the skill labor urgently for ongoing STEMI. [facility] [...] monitor I/O - s/p lasix in the skill labor, redose to aim net neg 1L by [...] - ISS - hold metformin - f/u [facility] #Home Meds - continue levothyroxine 175mcg - CPAP at night # Routine - DVT PPx: heparin drip - Diet: NPO - Code Status: FULL - Dispo: [facility] Cedric Bey MD Internal Medicine, PGY-2 Cardiology S1, Team Pager # [phone] CARDIOLOGY ATTENDING NOTE Patient: Gregory Hoang Date [...] amenable for PCI. DAPHNE SHAHID MD Pager [phone] documented in this encounter Miscellaneous Notes Consult Note - Daphne Shahid MD - 07/14/2017 11:46 AM EST Heart Failure Service Inpatient Consult Note Gregory Hoang Date of : 1945 Age: 72 y.o. Today's date: 07/14/17 PCP: Lovely Vicente MD TIE SAWYER: None Place of Service: [facility] Reason for Consult: Dr. Webber has requested [...] 33.75) performed by Yuan Webber MD at [facility] MAIN OR ??? PRO CABG, ARTERY-VEIN, TWO N/A 07/07/2017 @CABG, TWO VENOUS GRAFTS & ARTERIAL GRAFT (WRVU 7.93) performed by Yuan Webber MD at [facility] MAIN OR ??? PRO COLONOSCOPY, REMV LESN, SNARE 01/16/2014 COLONOSCOPY, POLYPECTOMY, REMOVAL LESION BY SNARE performed by Nohemi Jaimes MD at [facility] ENDOSCOPY ??? PRO ENDOSCOPY W/VIDEO-ASST VEIN HARVEST, CABG Right 07/07/2017 ENDOSCOPIC HARVEST VEIN(S) FOR CABG (WRVU 0.31) performed by Yuan Webber MD at [facility] MAIN OR ??? PRO THYROIDECTOMY 03/28/2013 THYROIDECTOMY, TOTAL OR COMPLETE performed by Manny Mcknight MD at [facility] MAIN OR Outpt Meds: Current [...] following studies: EKG 07/14/17: NSR 75 bpm, PLUSH WEAVER anterior infarct, LAD CXR 07/11/17: FINDINGS: Sternotomy wires. The patient has been extubated, left chest tube removed, and Lowell-Suzi catheter removed since the 07/07/2017 study. Atelectasis [...] was discussed with Zehra. Jaden Kelley MD Registration Rep Pager [phone] CARDIOLOGY ATTENDING NOTE Patient: Gregory Hoang Date [...] heart failure clinic. DAPHNE SAHHID MD Pager [phone] Plan of Care - Alden Chavarria, TAX ASSESSOR - 07/14/2017 11:35 AM EST Problem: Patient [...] Discharge Disposition: home with assist Alden Chavarria, TAX ASSESSOR Pager: [phone] Inpatient Physical Therapy Problem: Acute Rehab Services [...] sit/sit to supine -- Bed Mobility Goal, Baker Level supervision required -- Bed Mobility Goal, [...] - 3 days -- Gait Training Goal, Baker Level supervision required -- Gait Training Goal, [...] days -- Transfer Training Goal, Activity Type qhk-ho-qdcib/snkkg-xm-cno;cbz-ky-oaxcw/vskfv-kl-tnz;toilet -- Transfer Train Goal, Baker Level supervision required -- Transfer Training Goal, [...] keeping present for 2 days per family. Switch Engineer noted of frustrations, house keeping sent to room. Patient offered showered twice, refused. at bedside, frustrated that shower not complete, informed that patient had refused several times. requesting to see VEHICLE PAINTER, paged sent to Martha, will come to bedside (middle of consult). not willing to wait, Martha notified that family had gone home. Encouraged to come for morning rounds a t 8am. Diabetes team at bedside - insulin adjustments made. Call cabello in reach. Continue to monitor. PLAN MOVING FORWARD: Ambulate, dressing changes BID, Please change drsg at 4am per Martha VEHICLE PAINTER request. INDIVIDUALIZED FALL PREVENTION INTERVENTIONS: Patient-specific fall [...] levels on the lower side, 60ml of Gregg juice given after a FS of 80. [...] Anticipated Discharge Disposition: home with assist Pager: [phone] CLARISSA SEGAL, PT 07/12/2017 Physical Therapy Rehabilitation [...] to sit/sit to supine Bed Mobility Goal, Baker Level supervision required Bed Mobility Goal, Additional Goal adheres to psternal precautions for transfer Goal: Gait Training Goal Stand Alone Therapy Goal Outcome: Ongoing (Interventions Implemented as Appropriate) 07/12/17 1225 Gait Training Goal Gait Training Goal, Date Established 07/12/17 Gait Training Goal, Time to Achieve 2 - 3 days Gait Training Goal, Baker Level supervision required Gait Training Goal, Assist [...] 3 days Transfer Training Goal, Activity Type tvs-mp-nkhuf/bwcrg-ju-cbd;myf-ft-tudih/dejdw-ll-sop;toilet Transfer Train Goal, Baker Level supervision required Transfer Training Goal, Additional Goal adheres to sternal precautions during transfer Consult Note - Octavia Vaughn RN - 07/12/2017 10:50 AM EST [facility] CARDIAC REHABILITATION Gregory Hoang was seen today [...] IV site, amio to other piv and SYSTEMS ARCHITECT at bedside to help assess, IV removed. [...] Outcome: Ongoing (Interventions Implemented as Appropriate) 07/11/17199907/11/17200907/12/17 [facility] Daily Care Interventions Self-Care Promotion -- [...] staff, he stood and marched in place. Alpine weak, wanting to sit back down. Remained [...] Outcome: Ongoing (Interventions Implemented as Appropriate) 07/05/17 5920 Mutuality/Individual Preferences What Anxieties, Fears or Concerns [...] Health/Prescription Coverage: Primary Insurance: MEDICARE Secondary Insurance: [employer] [place] Prescription Coverage: yes Preferred Pharmacy: [facility] [place] Other: none Primary Care Provider: Lovely Vicente MD [phone] Patient/Caregiver Goals of Treatment:live and get my breath back Potential Needs for Transition of Care: [facility] Home Health: NA DME: TBD Dialysis: na Community Resources: available Transportation: yes Other: none Anticipated Barriers to Discharge/Special Considerations: none Plan: Likely SNF Rehab before home A member of the Care Management team will continue to monitor progress, follow for continuity of care and assist with transition of care planning. ERLIN Weiss Pager: [phone] Consult Note - Katerin Azul RN - [...] management and to provide a review of care home diabetes care. Diabetes History: Gregory Hoang [...] patient W/E coverage, Dr. Jeane Tatum, pager [phone] Katerin Patel. STACIE Azul Endocrinology Diabetes Management Pager [phone] Plan of Care - Stephanie Godoy RN [...] Webber MD - 07/07/2017 6:27 PM EST [facility] Operative Note Patient Name: Gregory Hoang : [id number] MR#: [id number] Case Date: 07/07/2017 Surgeon: Surgeon(s) and Role: * Yuan Webber MD - Primary * Michael Drake PA - Physician World Travel Counselor * Linda Flores PA - Physician World Travel Counselor Preoperative diagnosis: 3VD Postoperative diagnosis: CAD, severe [...] Operative Note Patient Name: Gregory Hoang : [id number] MR#: [id number] Case Date: 07/07/2017 Surgeon: Surgeon(s) and Role: * Yuan Webber MD - Primary * Michael Drake PA - Physician World Travel Counselor * Linda Flores PA - Physician World Travel Counselor Preoperative diagnosis: 3VD Postoperative diagnosis: CAD, severe [...] code status: Full Code Katty Jovani, MS3 [facility] Cardiology S1 (Pager [phone]) Plan of Care - Emelia Ibarra RN [...] and document Plan of Care - Emelia bIarra RN - 07/06/2017 2:48 PM EST Problem: [...] [facility] ENDOSCOPY ??? PRO THYROIDECTOMY 03/28/2013 THYROIDECTOMY, TOTAL OR COMPLETE performed by Manny Mcknight MD at [facility] MAIN OR Social History: Social [...] with other involved physicians Yuan Webber MD [phone] Med Student Progress Note - Jovani Katty [...] or BiPAP - s/p lasix in the skill labor, was net -1.5L - s/p plavix load, [...] [facility] Cardiology S1 (Pager [phone]) Plan of Care - Stephanie Godoy RN [...] in urinal without difficulty. Lasix given in skill labor, 1.4 L out at this time. Pt [...] Dolan MD [facility] [address] [place], [place] [address] (Wo lissa) 05/28/2022 Laboratory Appointment Lab 05/28/2022 Office Visit Cardiology Zulma Dolan [place] [facility] [place] [address] Liz Poole PA [facility] [place] [address] 06/10/2022 Office Visit Dermatology Laura Scherer MD [facility] [address] [facility] [place], [place] [address] (Wo rk) Scheduled Orders Name [...] procedure are i n the results section. BURIAL VAULT MAKER SCAN 07/15/2017 12:00 Res ults for [...] Routine 07/08/2017 4:00 Results f or this ([facility] [place] [place] AM EST procedure are i n the [...] section. TYPE AND SCREEN Routine 07/06/2017 12:00 ([facility] [place] PM EST APTT STAT 07/06/2017 11:24 Results [...] Routine 07/06/2017 8:10 Results f or this ([facility] [place] AM EST procedure are i n the [...] Routine 07/05/2017 8:20 Results f or this ([facility] [place] PM EST procedure are i n the [...] Timed 07/05/2017 4:55 Results f or this ([facility] [place] PM EST procedure are i n the [...] 2017 EXAMINATION: XR CHEST PA AND LATERAL ([employer]) CLINICAL HISTORY: CABG x 3 TECHNIQUE: PA [...] Teague APRN IMG DX ORDERABLES SCAN DOC: BURIAL VAULT MAKER (07/15/2017 12:00 AM EST) Narrative 07/15/2017 [...] Signature POC Glucose 186 65 - 199 [facility] Comment: Supplemental ranges: <140 mg/dL before meals <180 mg/dL all other times of the day Specimen Anatomical Collection Method Collection Time Receive d Time (Source) Location / / Volume Laterality Blood specimen 07/14/2017 11:56 7 (specimen) AM EST 11:56 AM EST Yuan Webber MD POINT OF CARE TEST ORDERABLE S Performing Organization Address City/[facility]/[place] [address] POCT Glucose (07/14/2017 7:52 AM EST) athologist Signature POC Glucose 126 65 - 199 [facility] Comment: Supplemental ranges: <140 mg/dL before meals <180 mg/dL all other times of the day Specimen Anatomical Collection Method Collection Time Receive d Time (Source) Location / / Volume Laterality Blood specimen 07/14/2017 7:52 AM 017 7:52 (specimen) EST AM EST Yuan Webber MD POINT OF CARE TEST ORDERABLE S Performing Organization Address City/State/[place] [address] (ABNORMAL) Prothrombin Time (07/14/2017 [...] Wilson STACIE HEMATOLOGY ORDERABLES Performing Organization Address City/[facility]/[place] [address] Potassium (07/14/2017 4:46 AM EST) athologist Signature Potassium 4.3 3.5 - 5.0 [facility] mmol/L [facility] Comment: Please note: ??Patients with [...] Wilson STACIE CHEMISTRY ORDERABLES Performing Organization Address City/[facility]/[place] [address] POCT Glucose (07/14/2017 4:34 AM EST) athologist Signature POC Glucose 115 65 - 199 [facility] mg/dL [facility] Comment: Supplemental ranges: <140 mg/dL before meals <180 mg/dL all other times of the day Specimen Anatomical Collection Method Collection Time Receive d Time (Source) Location / / Volume Laterality Blood specimen 07/14/2017 4:34 AM 017 4:34 (specimen) EST AM EST Yuan Webber MD POINT OF CARE TEST ORDERABLE S Performing Organization Address City/State/ZIP Code Phon e Number [address] POCT Glucose (07/13/2017 11:33 PM EST) athologist Signature POC Glucose 132 65 - 199 [facility] mg/dL [facility] Comment: Supplemental ranges: <140 mg/dL before meals <180 mg/dL all other times of the day Specimen Anatomical Collection Method Collection Time Receive d Time (Source) Location / / Volume Laterality Blood specimen 07/13/2017 11:33 7 (specimen) PM EST 11:33 PM EST Yuan Webber MD POINT OF CARE TEST ORDERABLE S Performing Organization Address City/State/ZIP Code Phon e Number [address] POCT Glucose (07/13/2017 9:25 PM EST) athologist Signature POC Glucose 121 65 - 199 [facility] mg/dL [facility] Comment: Supplemental ranges: <140 mg/dL before meals <180 mg/dL all other times of the day Specimen Anatomical Collection Method Collection Time Receive d Time (Source) Location / / Volume Laterality Blood specimen 07/13/2017 9:25 PM 017 9:25 (specimen) EST PM EST Yuan Webber MD POINT OF CARE TEST ORDERABLE S Performing Organization Address City/State/ZIP Code Phon e Number [address] POCT Glucose (07/13/2017 4:55 PM EST) athologist Signature POC Glucose 79 65 - 199 [facility] mg/dL [facility] Comment: Supplemental ranges: <140 mg/dL before meals <180 mg/dL all other times of the day Specimen Anatomical Collection Method Collection Time Receive d Time (Source) Location / / Volume Laterality Blood specimen 07/13/2017 4:55 PM 017 4:55 (specimen) EST PM EST Yuan Webber MD POINT OF CARE TEST ORDERABLE S Performing Organization Address City/State/ZIP Code Phon e Number [address] POCT Glucose (07/13/2017 11:16 AM EST) athologist Signature POC Glucose 163 65 - 199 [facility] Comment: Supplemental ranges: <140 mg/dL before meals <180 mg/dL all other times of the day Specimen Anatomical Collection Method Collection Time Receive d Time (Source) Location / / Volume Laterality Blood specimen 07/13/2017 11:16 7 (specimen) AM EST 11:16 AM EST Yuan Webber MD POINT OF CARE TEST ORDERABLE S Performing Organization Address City/State/ZIP Code Phon e Number [address] POCT Glucose (07/13/2017 8:07 AM EST) athologist Signature POC Glucose 96 65 - 199 [facility] Comment: Supplemental ranges: <140 mg/dL before meals <180 mg/dL all other times of the day Specimen Anatomical Collection Method Collection Time Receive d Time (Source) Location / / Volume Laterality Blood specimen 07/13/2017 8:07 AM 017 8:07 (specimen) EST AM EST Yuan Webber MD POINT OF CARE TEST ORDERABLE S Performing Organization Address City/State/ZIP Code Phon e Number [address] (ABNORMAL) Prothrombin Time (07/13/2017 [...] Address City/State/[place] [address] (ABNORMAL) Basic Metabolic Panel (non-fasting) (07/13/2017 4:26 AM EST) athologist Signature Glucose Lvl 95 65 - 199 [facility] mg/dL [facility] Comment: Diabetes: >=200 [facility] Estimated GFR 60 >=60 [facility] Comment: The reported eGFR should be multiplied b y 1.2 for patients. The MDRD is not an appropriate measure o f renal function for patients with body mass extremes or in patients with acute kidney failure. http://Stemnion/DHnkdep http://Stemn[employer]/DHMCnkf Specimen Anatomical Collection Method Collection Time Receive d Time (Source) Location / / Volume Laterality Blood specimen 07/13/2017 4:26 AM 017 4:46 (specimen) EST AM EST Resulting Agency Comment Spec In Lab Makayla Wilson APRN CHEMISTRY ORDERABLES Performing Organization Address City/[facility]/ZIP Code Phon e Number [address] POCT Glucose (07/13/2017 3:52 AM EST) athologist Signature POC Glucose 93 65 - 199 [facility] mg/dL [facility] Comment: Supplemental ranges: <140 mg/dL before meals <180 mg/dL all other times of the day Specimen Anatomical Collection Method Collection Time Receive d Time (Source) Location / / Volume Laterality Blood specimen 07/13/2017 3:52 AM 017 3:52 (specimen) EST AM EST Yuan Webber MD POINT OF CARE TEST ORDERABLE S Performing Organization Address City/[facility]/ZIP Code Phon e Number [address] POCT Glucose (07/13/2017 12:21 AM EST) athologist Signature POC Glucose 80 65 - 199 [place] [facility] mg/dL [facility] Comment: Supplemental ranges: <140 mg/dL before meals <180 mg/dL all other times of the day Specimen Anatomical Collection Method Collection Time Receive d Time (Source) Location / / Volume Laterality Blood specimen 07/13/2017 12:21 7 (specimen) AM EST 12:21 AM EST Yuan Webber MD POINT OF CARE TEST ORDERABLE S Performing Organization Address City/[facility]/ZIP Code Phon e Number [address] POCT Glucose (07/12/2017 8:22 PM EST) athologist Signature POC Glucose 119 65 - 199 [place] [facility] mg/dL [facility] Comment: Supplemental ranges: <140 mg/dL before meals <180 mg/dL all other times of the day Specimen Anatomical Collection Method Collection Time Receive d Time (Source) Location / / Volume Laterality Blood specimen 07/12/2017 8:22 PM 017 8:22 (specimen) EST PM EST Yuan Webber MD POINT OF CARE TEST ORDERABLE S Performing Organization Address City/State/ZIP Code Phon e Number [address] POCT Glucose (07/12/2017 4:02 PM EST) athologist Signature POC Glucose 114 65 - 199 [place] mg/dL [facility] Comment: Supplemental ranges: <140 mg/dL before meals <180 mg/dL all other times of the day Specimen Anatomical Collection Method Collection Time Receive d Time (Source) Location / / Volume Laterality Blood specimen 07/12/2017 4:02 PM 017 4:02 (specimen) EST PM EST Yuan Webber MD POINT OF CARE TEST ORDERABLE S Performing Organization Address City/State/ZIP Code Phon e Number [address] POCT Glucose (07/12/2017 11:28 AM EST) athologist Signature POC Glucose 164 65 - 199 [place] [facility] mg/dL [facility] Comment: Supplemental ranges: <140 mg/dL before meals <180 mg/dL all other times of the day Specimen Anatomical Collection Method Collection Time Receive d Time (Source) Location / / Volume Laterality Blood specimen 07/12/2017 11:28 7 (specimen) AM EST 11:28 AM EST Yuan Webber MD POINT OF CARE TEST ORDERABLE S Performing Organization Address City/State/ZIP Code Phon e Number [address] POCT Glucose (07/12/2017 7:34 AM EST) athologist Signature POC Glucose 109 65 - 199 [facility] mg/dL [facility] Comment: Supplemental ranges: <140 mg/dL before meals <180 mg/dL all other times of the day Specimen Anatomical Collection Method Collection Time Receive d Time (Source) Location / / Volume Laterality Blood specimen 07/12/2017 7:34 AM 017 7:34 (specimen) EST AM EST Yuan Webber MD POINT OF CARE TEST ORDERABLE S Performing Organization Address City/State/[place] [address] (ABNORMAL) Basic Metabolic Panel (non-fasting) (07/12/2017 4:11 AM EST) P athologist Signature Glucose Lvl 92 65 - 199 [facility] mg/dL [facility] Comment: Diabetes: >=200 [...] or in patients with acute kidney failure. http://[employer]VitaPortal/DHnkdep http://[employer]ita[employer]/DHnkf Specimen Anatomical Collection Method Collection Time Receive d Time (Source) Location / / Volume Laterality Blood specimen 07/12/2017 4:11 AM 017 8:57 (specimen) EST AM EST Resulting Agency Comment Spec In Lab Makayla Wilson APRN CHEMISTRY ORDERABLES Performing Organization Address City/State/[place] [address] (ABNORMAL) Prothrombin Time (07/12/2017 [...] [place] STACIE HEMATOLOGY ORDERABLES Performing Organization Address City/[facility]/[place] [address] Potassium (07/12/2017 4:11 AM EST) athologist Signature Potassium 3.8 3.5 - 5.0 [facility] mmol/L [facility] Comment: Please note: ??Patients with [...] Agency Comment Spec In Lab Makayla Katie PACKING LINE WORKER CHEMISTRY ORDERABLES Performing Organization Address City/[facility]/[place] [address] POCT Glucose (07/12/2017 4:10 AM EST) athologist Signature POC Glucose 90 65 - 199 [facility] mg/dL [facility] Comment: Supplemental ranges: <140 mg/dL before meals <180 mg/dL all other times of the day Specimen Anatomical Collection Method Collection Time Receive d Time (Source) Location / / Volume Laterality Blood specimen 07/12/2017 4:10 AM 017 4:10 (specimen) EST AM EST Yuan Webber MD POINT OF CARE TEST ORDERABLE S Performing Organization Address City/State/ZIP Code Phon e Number [address] POCT Glucose (07/11/2017 11:57 PM EST) athologist Signature POC Glucose 98 65 - 199 [facility] mg/dL [facility] Comment: Supplemental ranges: <140 mg/dL before meals <180 mg/dL all other times of the day Specimen Anatomical Collection Method Collection Time Receive d Time (Source) Location / / Volume Laterality Blood specimen 07/11/2017 11:57 7 (specimen) PM EST 11:57 PM EST Yuan Webber MD POINT OF CARE TEST ORDERABLE S Performing Organization Address City/State/[place] [address] POCT Glucose (07/11/2017 8:32 PM EST) athologist Signature POC Glucose 146 65 - 199 [facility] mg/dL [facility] Comment: Supplemental ranges: <140 mg/dL before meals <180 mg/dL all other times of the day Specimen Anatomical Collection Method Collection Time Receive d Time (Source) Location / / Volume Laterality Blood specimen 07/11/2017 8:32 PM 017 8:32 (specimen) EST PM EST Yuan Webber MD POINT OF CARE TEST ORDERABLE S Performing Organization Address City/State/[place] [address] XR Chest PA & [...] e xtubated, left chest tube removed, and Lowell-Suzi catheter removed since the study. Atelectasis at [...] e xtubated, left chest tube removed, and Lowell-Suzi catheter removed since the study. Atelectasis at [...] POC Glucose 223 (H) 65 - 199 [facility] mg/dL [facility] Comment: Supplemental ranges: <140 mg/dL before meals <180 mg/dL all other times of the day Specimen Anatomical Collection Method Collection Time Receive d Time (Source) Location / / Volume Laterality Blood specimen 07/11/2017 4:05 PM 017 4:05 (specimen) EST PM EST Yuan Webber MD POINT OF CARE TEST ORDERABLE S Performing Organization Address City/State/ZIP Code Phon e Number [address] POCT Glucose (07/11/2017 11:55 AM EST) P athologist Signature POC Glucose 176 65 - 199 [place] mg/dL [facility] Comment: Supplemental ranges: <140 mg/dL before meals <180 mg/dL all other times of the day Specimen Anatomical Collection Method Collection Time Receive d Time (Source) Location / / Volume Laterality Blood specimen 07/11/2017 11:55 7 (specimen) AM EST 11:55 AM EST Yuan Webber MD POINT OF CARE TEST ORDERABLE S Performing Organization Address City/[facility]/[place] [address] POCT Glucose (07/11/2017 7:53 AM EST) athologist Signature POC Glucose 189 65 - 199 [place] [facility] mg/dL [facility] Comment: Supplemental ranges: <140 mg/dL before meals <180 mg/dL all other times of the day Specimen Anatomical Collection Method Collection Time Receive d Time (Source) Location / / Volume Laterality Blood specimen 07/11/2017 7:53 AM 017 7:53 (specimen) EST AM EST Yuan Webber MD POINT OF CARE TEST ORDERABLE S Performing Organization Address City/[facility]/[place] [address] POCT Glucose (07/11/2017 4:22 AM EST) P athologist Signature POC Glucose 151 65 - 199 [place] [facility] mg/dL [facility] Comment: Supplemental ranges: <140 mg/dL before meals <180 mg/dL all other times of the day Specimen Anatomical Collection Method Collection Time Receive d Time (Source) Location / / Volume Laterality Blood specimen 07/11/2017 4:22 AM 017 4:22 (specimen) EST AM EST Yuan Webber MD POINT OF CARE TEST ORDERABLE S Performing Organization Address City/[facility]/[place] [address] Potassium (07/11/2017 2:20 AM EST) athologist Signature Potassium 4.5 3.5 - 5.0 [facility] mmol/L [facility] Comment: Please note: ??Patients with [...] Webber MD CHEMISTRY ORDERABLES Performing Organization Address City/[facility]/[place] [address] POCT Glucose (07/11/2017 12:17 AM EST) athologist Signature POC Glucose 162 65 - 199 [facility] mg/dL [facility] Comment: Supplemental ranges: <140 mg/dL before meals <180 mg/dL all other times of the day Specimen Anatomical Collection Method Collection Time Receive d Time (Source) Location / / Volume Laterality Blood specimen 07/11/2017 12:17 7 (specimen) AM EST 12:17 AM EST Yuan Webber MD POINT OF CARE TEST ORDERABLE S Performing Organization Address City/[facility]/ZIP Code Phon e Number [address] POCT Glucose (07/10/2017 8:47 PM EST) athologist Signature POC Glucose 191 65 - 199 [facility] mg/dL [facility] Comment: Supplemental ranges: <140 mg/dL before meals <180 mg/dL all other times of the day Specimen Anatomical Collection Method Collection Time Receive d Time (Source) Location / / Volume Laterality Blood specimen 07/10/2017 8:47 PM 017 8:47 (specimen) EST PM EST Yuan Webber MD POINT OF CARE TEST ORDERABLE S Performing Organization Address City/State/ZIP Code Phon e Number [address] POCT Glucose (07/10/2017 4:06 PM EST) athologist Signature POC Glucose 131 65 - 199 [place] [facility] mg/dL [facility] Comment: Supplemental ranges: <140 mg/dL before meals <180 mg/dL all other times of the day Specimen Anatomical Collection Method Collection Time Receive d Time (Source) Location / / Volume Laterality Blood specimen 07/10/2017 4:06 PM 017 4:06 (specimen) EST PM EST Yuan Webber MD POINT OF CARE TEST ORDERABLE S Performing Organization Address City/State/[place] [address] POCT Glucose (07/10/2017 3:08 PM EST) athologist Signature POC Glucose 151 65 - 199 [place] [facility] mg/dL [facility] Comment: Supplemental ranges: <140 mg/dL before meals <180 mg/dL all other times of the day Specimen Anatomical Collection Method Collection Time Receive d Time (Source) Location / / Volume Laterality Blood specimen 07/10/2017 3:08 PM 017 3:08 (specimen) EST PM EST Yuan Webber MD POINT OF CARE TEST ORDERABLE S Performing Organization Address City/State/[place] [address] POCT Glucose (07/10/2017 2:25 PM EST) athologist Signature POC Glucose 146 65 - 199 [facility] mg/dL [facility] Comment: Supplemental ranges: <140 mg/dL before meals <180 mg/dL all other times of the day Specimen Anatomical Collection Method Collection Time Receive d Time (Source) Location / / Volume Laterality Blood specimen 07/10/2017 2:25 PM 017 2:25 (specimen) EST PM EST Yuan Webber MD POINT OF CARE TEST ORDERABLE S Performing Organization Address City/State/ZIP Code Phon e Number [address] POCT Glucose (07/10/2017 1:23 PM EST) P athologist Signature POC Glucose 166 65 - 199 [place] [facility] mg/dL [facility] Comment: Supplemental ranges: <140 mg/dL before meals <180 mg/dL all other times of the day Specimen Anatomical Collection Method Collection Time Receive d Time (Source) Location / / Volume Laterality Blood specimen 07/10/2017 1:23 PM 017 1:23 (specimen) EST PM EST Yuan Webber MD POINT OF CARE TEST ORDERABLE S Performing Organization Address City/[facility]/ZIP Code Phon e Number [address] POCT Glucose (07/10/2017 11:52 AM EST) P athologist Signature POC Glucose 157 65 - 199 [place] [facility] mg/dL [facility] Comment: Supplemental ranges: <140 mg/dL before meals <180 mg/dL all other times of the day Specimen Anatomical Collection Method Collection Time Receive d Time (Source) Location / / Volume Laterality Blood specimen 07/10/2017 11:52 7 (specimen) AM EST 11:52 AM EST Yuan Webber MD POINT OF CARE TEST ORDERABLE S Performing Organization Address City/State/ZIP Code Phon e Number [address] POCT Glucose (07/10/2017 11:01 AM EST) P athologist Signature POC Glucose 158 65 - 199 [place] mg/dL [facility] Comment: Supplemental ranges: <140 mg/dL before meals <180 mg/dL all other times of the day Specimen Anatomical Collection Method Collection Time Receive d Time (Source) Location / / Volume Laterality Blood specimen 07/10/2017 11:01 7 (specimen) AM EST 11:01 AM EST Yuan Webber MD POINT OF CARE TEST ORDERABLE S Performing Organization Address City/State/ZIP Code Phon e Number [address] POCT Glucose (07/10/2017 9:54 AM EST) P athologist Signature POC Glucose 160 65 - 199 [place] mg/dL [facility] Comment: Supplemental ranges: <140 mg/dL before meals <180 mg/dL all other times of the day Specimen Anatomical Collection Method Collection Time Receive d Time (Source) Location / / Volume Laterality Blood specimen 07/10/2017 9:54 AM 017 9:54 (specimen) EST AM EST Yuan Webber MD POINT OF CARE TEST ORDERABLE S Performing Organization Address City/State/ZIP Code Phon e Number [address] POCT Glucose (07/10/2017 8:58 AM EST) athologist Signature POC Glucose 183 65 - 199 [place] mg/dL [facility] Comment: Supplemental ranges: <140 mg/dL before meals <180 mg/dL all other times of the day Specimen Anatomical Collection Method Collection Time Receive d Time (Source) Location / / Volume Laterality Blood specimen 07/10/2017 8:58 AM 017 8:58 (specimen) EST AM EST Yuna Webber MD POINT OF CARE TEST ORDERABLE S Performing Organization Address City/State/[place] [address] POCT Glucose (07/10/2017 8:01 AM EST) P athologist Signature POC Glucose 173 65 - 199 [facility] mg/dL [facility] Comment: Supplemental ranges: <140 mg/dL before meals <180 mg/dL all other times of the day Specimen Anatomical Collection Method Collection Time Receive d Time (Source) Location / / Volume Laterality Blood specimen 07/10/2017 8:01 AM 017 8:01 (specimen) EST AM EST Yuan Webber MD POINT OF CARE TEST ORDERABLE S Performing Organization Address City/State/ZIP Code Phon e Number [address] POCT Glucose (07/10/2017 7:05 AM EST) athologist Signature POC Glucose 166 65 - 199 [place] [facility] mg/dL [facility] Comment: Supplemental ranges: <140 mg/dL before meals <180 mg/dL all other times of the day Specimen Anatomical Collection Method Collection Time Receive d Time (Source) Location / / Volume Laterality Blood specimen 07/10/2017 7:05 AM 017 7:05 (specimen) EST AM EST Yuan Webber MD POINT OF CARE TEST ORDERABLE S Performing Organization Address City/State/ZIP Code Phon e Number [address] POCT Glucose (07/10/2017 6:00 AM EST) athologist Signature POC Glucose 162 65 - 199 [facility] mg/dL [facility] Comment: Supplemental ranges: <140 mg/dL before meals <180 mg/dL all other times of the day Specimen Anatomical Collection Method Collection Time Receive d Time (Source) Location / / Volume Laterality Blood specimen 07/10/2017 6:00 AM 017 6:00 (specimen) EST AM EST Yuan Webber MD POINT OF CARE TEST ORDERABLE S Performing Organization Address City/State/ZIP Code Phon e Number [address] (ABNORMAL) Differential, Automated (07/10/2017 4:28 AM EST) [facility] Behavioral Medicine gist Method Time Signature Neutrophils % 87.9 % [facility] Neutr Abs (ANC) 10.70 (H) 1.70 - [facility] 6.10 [facility] x10(3)/[facility] L LABORATORY Lymphocytes % 3.9 % [facility] Lymphocytes Abs 0.5 (L) 0.9 - 3.2 [facility] x10(3)/[facility] LABORATORY Monocytes % 7.0 % [facility] Monocyte Abs 0.8 0.3 - 0.9 [facility] x10(3)/[facility] LABORATORY Eosinophils % 0.3 % [facility] Eosinophils Abs 0.0 0.0 - 0.4 [facility] x10(3)/[facility] LABORATORY Basophils % 0.2 % [facility] Basophils Abs 0.0 0.0 - 0.1 [facility] x10(3)/[facility] LABORATORY Immature Gran % 0.70 % [...] Address City/State/[place] [address] (ABNORMAL) Hemogram (07/10/2017 4:28 AM EST) Analysis Performed At Patho logist Time Signature WBC 12.2 (H) 4.0 - 9.5 [facility] x10(3)/[facility] LABORATORY RBC 3.31 (L) 4.58 - [facility] 5.54 [facility] x10(6)/[facility] LABORATORY Hemoglobin 9.8 (L) 13.7 - [facility] 16.5 gm/dL [facility] Hematocrit 30.0 (L) 40.5 - [facility] 48.5 % [facility] MCV 90.6 82.9 - [facility] 93[facility]1 fL [facility] MCH 29.6 27.5 - [facility] 32.1 pg [facility] MCHC 32.7 32.0 - [facility] 35.7 gm/dL [facility] Platelets 135 (L) 145 - 357 [facility] x10(3)/[facility] LABORATORY RDWSD 50.8 (H) 36.0 - [facility] 45[facility]0 [facility] LABORATORY RDWCV 15.4 (H) 11.4 - [facility] 13.8 % [facility] MPV 10.0 7.6 - 12.9 [facility] LABORATORY nRBC % Auto 0.0 % [facility] nRBC Abs Auto 0.000 0.000 - [facility] 0.000 [facility] x10(3)/[facility] LABORATORY Specimen Anatomical Collection Method Collection Time Receive d Time (Source) Location / / Volume Laterality Blood specimen 07/10/2017 4:28 AM 017 4:36 (specimen) EST AM EST Resulting Agency Comment Spec In Lab Yuan Webber MD HEMATOLOGY ORDERABLES Performing Organization Address City/State/[place] [address] (ABNORMAL) Basic Metabolic Panel (non-fasting) (07/10/2017 4:28 AM EST) athologist Signature Glucose Lvl 178 65 - 199 [facility] mg/dL [facility] Comment: Diabetes: >=200 [facility] Estimated GFR 60 >=60 [facility] Comment: The reported eGFR should be multiplied b y 1.2 for patients. The MDRD is not an appropriate measure o f renal function for patients with body mass extremes or in patients with acute kidney failure. http://Stemnion/DHnkdep http://Stemnion/DHMCnkf Specimen Anatomical Collection Method Collection Time Receive d Time (Source) Location / / Volume Laterality Blood specimen 07/10/2017 4:28 AM 017 4:36 (specimen) EST AM EST Resulting Agency Comment Spec In Lab Yuan Webber MD CHEMISTRY ORDERABLES Performing Organization Address City/[facility]/ZIP Code Phon e Number [address] POCT Glucose (07/10/2017 4:26 AM EST) P athologist Signature POC Glucose 176 65 - 199 [facility] mg/dL [facility] Comment: Supplemental ranges: <140 mg/dL before meals <180 mg/dL all other times of the day Specimen Anatomical Collection Method Collection Time Receive d Time (Source) Location / / Volume Laterality Blood specimen 07/10/2017 4:26 AM 017 4:26 (specimen) EST AM EST Yuan Webber MD POINT OF CARE TEST ORDERABLE S Performing Organization Address City/State/[place] [address] (ABNORMAL) POCT Glucose (07/10/2017 3:06 AM EST) P athologist Signature POC Glucose 204 (H) 65 - 199 [facility] mg[facility]dL [facility] Comment: Supplemental ranges: <140 mg/dL before meals <180 mg/dL all other times of the day Specimen Anatomical Collection Method Collection Time Receive d Time (Source) Location / / Volume Laterality Blood specimen 07/10/2017 3:06 AM 12/16/2 017 3:06 (specimen) EST AM EST Yuan Webber MD POINT OF CARE TEST ORDERABLE S Performing Organization Address City/[facility]/ZIP Code Phon e Number [address] (ABNORMAL) POCT Glucose (07/10/2017 2:10 AM EST) P athologist Signature POC Glucose 203 (H) 65 - 199 [place] [facility] mg/dL [facility] Comment: Supplemental ranges: <140 mg/dL before meals <180 mg/dL all other times of the day Specimen Anatomical Collection Method Collection Time Receive d Time (Source) Location / / Volume Laterality Blood specimen 07/10/2017 2:10 AM 017 2:10 (specimen) EST AM EST Yuan Webber MD POINT OF CARE TEST ORDERABLE S Performing Organization Address City/[facility]/[place] [address] POCT Glucose (07/10/2017 1:09 AM EST) P athologist Signature POC Glucose 196 65 - 199 [place] [facility] mg/dL [facility] Comment: Supplemental ranges: <140 mg/dL before meals <180 mg/dL all other times of the day Specimen Anatomical Collection Method Collection Time Receive d Time (Source) Location / / Volume Laterality Blood specimen 07/10/2017 1:09 AM 017 1:09 (specimen) EST AM EST Yuan Webber MD POINT OF CARE TEST ORDERABLE S Performing Organization Address City/State/[place] [address] POCT Glucose (07/10/2017 12:10 AM EST) P athologist Signature POC Glucose 173 65 - 199 [place] [facility] mg/dL [facility] Comment: Supplemental ranges: <140 mg/dL before meals <180 mg/dL all other times of the day Specimen Anatomical Collection Method Collection Time Receive d Time (Source) Location / / Volume Laterality Blood specimen 07/10/2017 12:10 7 (specimen) AM EST 12:10 AM EST Yuan Webber MD POINT OF CARE TEST ORDERABLE S Performing Organization Address City/State/ZIP Code Phon e Number [address] POCT Glucose (07/09/2017 11:01 PM EST) P athologist Signature POC Glucose 140 65 - 199 [place] mg/dL [facility] Comment: Supplemental ranges: <140 mg/dL before meals <180 mg/dL all other times of the day Specimen Anatomical Collection Method Collection Time Receive d Time (Source) Location / / Volume Laterality Blood specimen 07/09/2017 11:01 7 (specimen) PM EST 11:01 PM EST Yuan Webber MD POINT OF CARE TEST ORDERABLE S Performing Organization Address City/[facility]/ZIP Code Phon e Number [address] POCT Glucose (07/09/2017 10:05 PM EST) athologist Signature POC Glucose 144 65 - 199 [place] mg/dL [facility] Comment: Supplemental ranges: <140 mg/dL before meals <180 mg/dL all other times of the day Specimen Anatomical Collection Method Collection Time Receive d Time (Source) Location / / Volume Laterality Blood specimen 07/09/2017 10:05 7 (specimen) PM EST 10:05 PM EST Yuan Webber MD POINT OF CARE TEST ORDERABLE S Performing Organization Address City/State/ZIP Code Phon e Number [address] POCT Glucose (07/09/2017 9:31 PM EST) P athologist Signature POC Glucose 121 65 - 199 [place] mg/dL [facility] Comment: Supplemental ranges: <140 mg/dL before meals <180 mg/dL all other times of the day Specimen Anatomical Collection Method Collection Time Receive d Time (Source) Location / / Volume Laterality Blood specimen 07/09/2017 9:31 PM 017 9:31 (specimen) EST PM EST Yuan Webber MD POINT OF CARE TEST ORDERABLE S Performing Organization Address City/State/ZIP Code Phon e Number [address] POCT Glucose (07/09/2017 9:03 PM EST) athologist Signature POC Glucose 98 65 - 199 [place] mg/dL [facility] Comment: Supplemental ranges: <140 mg/dL before meals <180 mg/dL all other times of the day Specimen Anatomical Collection Method Collection Time Receive d Time (Source) Location / / Volume Laterality Blood specimen 07/09/2017 9:03 PM 017 9:03 (specimen) EST PM EST Yuan Webber MD POINT OF CARE TEST ORDERABLE S Performing Organization Address City/State/ZIP Code Phon e Number [address] POCT Glucose (07/09/2017 8:09 PM EST) athologist Signature POC Glucose 117 65 - 199 [place] [facility] mg/dL [facility] Comment: Supplemental ranges: <140 mg/dL before meals <180 mg/dL all other times of the day Specimen Anatomical Collection Method Collection Time Receive d Time (Source) Location / / Volume Laterality Blood specimen 07/09/2017 8:09 PM 017 8:09 (specimen) EST PM EST Yuan Webber MD POINT OF CARE TEST ORDERABLE S Performing Organization Address City/State/ZIP Code Phon e Number [address] POCT Glucose (07/09/2017 5:40 PM EST) athologist Signature POC Glucose 155 65 - 199 [facility] mg/dL [facility] Comment: Supplemental ranges: <140 mg/dL before meals <180 mg/dL all other times of the day Specimen Anatomical Collection Method Collection Time Receive d Time (Source) Location / / Volume Laterality Blood specimen 07/09/2017 5:40 PM 017 5:40 (specimen) EST PM EST Yuan Webber MD POINT OF CARE TEST ORDERABLE S Performing Organization Address City/[facility]/ZIP Code Phon e Number [address] POCT Glucose (07/09/2017 4:24 PM EST) athologist Signature POC Glucose 164 65 - 199 [place] [facility] mg/dL [facility] Comment: Supplemental ranges: <140 mg/dL before meals <180 mg/dL all other times of the day Specimen Anatomical Collection Method Collection Time Receive d Time (Source) Location / / Volume Laterality Blood specimen 07/09/2017 4:24 PM 017 4:24 (specimen) EST PM EST Yuan Webber MD POINT OF CARE TEST ORDERABLE S Performing Organization Address City/[facility]/ZIP Code Phon e Number [address] POCT Glucose (07/09/2017 3:19 PM EST) athologist Signature POC Glucose 166 65 - 199 [place] [facility] mg/dL [facility] Comment: Supplemental ranges: <140 mg/dL before meals <180 mg/dL all other times of the day Specimen Anatomical Collection Method Collection Time Receive d Time (Source) Location / / Volume Laterality Blood specimen 07/09/2017 3:19 PM 017 3:19 (specimen) EST PM EST Yuan Webber MD POINT OF CARE TEST ORDERABLE S Performing Organization Address City/[facility]/ZIP Code Phon e [place] [address] POCT Glucose (07/09/2017 2:26 PM EST) athologist Signature POC Glucose 179 65 - 199 [place] [facility] mg/dL [facility] Comment: Supplemental ranges: <140 mg/dL before meals <180 mg/dL all other times of the day Specimen Anatomical Collection Method Collection Time Receive d Time (Source) Location / / Volume Laterality Blood specimen 07/09/2017 2:26 PM 017 2:26 (specimen) EST PM EST Yuan Webber MD POINT OF CARE TEST ORDERABLE S Performing Organization Address City/State/[place] [address] (ABNORMAL) POCT Glucose (07/09/2017 1:29 PM EST) P athologist Signature POC Glucose 210 (H) 65 - 199 [place] mg/dL [facility] Comment: Supplemental ranges: <140 mg/dL before meals <180 mg/dL all other times of the day Specimen Anatomical Collection Method Collection Time Receive d Time (Source) Location / / Volume Laterality Blood specimen 07/09/2017 1:29 PM 017 1:29 (specimen) EST PM EST Yuan Webber MD POINT OF CARE TEST ORDERABLE S Performing Organization Address City/State/[place] [address] POCT Glucose (07/09/2017 12:20 PM EST) athologist Signature POC Glucose 172 65 - 199 [facility] mg/dL [facility] Comment: Supplemental ranges: <140 mg/dL before meals <180 mg/dL all other times of the day Specimen Anatomical Collection Method Collection Time Receive d Time (Source) Location / / Volume Laterality Blood specimen 07/09/2017 12:20 7 (specimen) PM EST 12:20 PM EST Yuan Webber MD POINT OF CARE TEST ORDERABLE S Performing Organization Address City/State/[place] [address] POCT Glucose (07/09/2017 11:24 AM EST) athologist Signature POC Glucose 156 65 - 199 [place] mg/dL [facility] Comment: Supplemental ranges: [...] Phon e Number [facility] [place] [address] POCT Glucose (07/09/2017 11:11 AM EST) athologist Signature POC Glucose 172 65 - 199 [place] mg/dL [facility] Comment: Supplemental ranges: <140 mg/dL before meals <180 mg/dL all other times of the day Specimen Anatomical Collection Method Collection Time Receive d Time (Source) Location / / Volume Laterality Blood specimen 07/09/2017 11:11 7 (specimen) AM EST 11:11 AM EST Yuan Webber MD POINT OF CARE TEST ORDERABLE S Performing Organization Address City/State/ZIP Code Phon e Number [address] POCT Glucose (07/09/2017 10:08 AM EST) athologist Signature POC Glucose 176 65 - 199 [facility] mg/dL [facility] Comment: Supplemental ranges: <140 mg/dL before meals <180 mg/dL all other times of the day Specimen Anatomical Collection Method Collection Time Receive d Time (Source) Location / / Volume Laterality Blood specimen 07/09/2017 10:08 7 (specimen) AM EST 10:08 AM EST Yuan Webber MD POINT OF CARE TEST ORDERABLE S Performing Organization Address City/State/[place] [address] POCT Glucose (07/09/2017 8:02 AM EST) athologist Signature POC Glucose 178 65 - 199 [place] mg/dL [facility] Comment: Supplemental ranges: <140 mg/dL before meals <180 mg/dL all other times of the day Specimen Anatomical Collection Method Collection Time Receive d Time (Source) Location / / Volume Laterality Blood specimen 07/09/2017 8:02 AM 017 8:02 (specimen) EST AM EST Yuan Webber MD POINT OF CARE TEST ORDERABLE S Performing Organization Address City/State/[place] [address] (ABNORMAL) BLOOD GAS 2 ARTERIAL (07/09/2017 5:37 AM EST) Analysis Performed At Patho logist Time Signature pH Art 7.36 7.35 - [facility] 7.45 [facility] pCO2 Art 38 35 - 45 [facility] mmHg [facility] pO2 Art 79 (L) 85 - 104 [facility] LABORATORY HCO3 Art 20.9 20.0 - [facility] 26.0 [facility] mmol/L [facility] LABORATORY BE Art -4.6 (L) -3.0 - 3.0 [facility] mmol/L [facility] Hgb Blood Gas 10.5 (L) 13.7 - [facility] 16.5 gm/dL [facility] O2HB Art 93.8 (L) 94.0 - [facility] 97.0 % [facility] COHB Art 0.3 % [facility] FIO2 Art 40 % [facility] PF Ratio Art 198 [facility] LABORATORY Specimen Anatomical Collection Method Collection Time Receive d Time (Source) Location / / Volume Laterality Blood specimen 07/09/2017 5:37 AM 017 5:37 (specimen) EST AM EST Yuan Webber MD CHEMISTRY ORDERABLES Performing Organization Address City/State/[place] [address] POCT Glucose (07/09/2017 3:27 AM EST) athologist Signature POC Glucose 192 65 - 199 [facility] mg/dL [facility] Comment: Supplemental ranges: <140 mg/dL before meals <180 mg/dL all other times of the day Specimen Anatomical Collection Method Collection Time Receive d Time (Source) Location / / Volume Laterality Blood specimen 07/09/2017 3:27 AM 017 3:27 (specimen) EST AM EST Yuan Webber MD POINT OF CARE TEST ORDERABLE S Performing Organization Address City/State/[place] [address] (ABNORMAL) Basic Metabolic Panel (non-fasting) (07/09/2017 2:30 AM EST) athologist Signature Glucose Lvl 179 65 - 199 [facility] mg[facility]dL [facility] Comment: Diabetes: >=200 [...] or in patients with acute kidney failure. http://Stemnion/DHnkdep http://Stemnion/DHMCnkf Specimen Anatomical Collection Method Collection Time Receive d Time (Source) Location / / Volume Laterality Blood specimen Venous Draw / 07/09/2017 2:30 AM 2016 2:42 (specimen) Unknown EST AM EST Resulting Agency Comment Spec In Lab Yuan Webber MD CHEMISTRY ORDERABLES Performing Organization Address City/[facility] [place] [address] (ABNORMAL) Potassium (07/09/2017 2:30 AM EST) P athologist Signature Potassium 5.1 (H) 3.5 - 5.0 [facility] mmol/L [facility] Comment: Please note: ??Patients with [...] Webber MD CHEMISTRY ORDERABLES Performing Organization Address City/[facility] [place] [address] (ABNORMAL) Hemogram (07/09/2017 2:30 AM EST) Analysis Performed At Patho logist Time Signature WBC 12.5 (H) 4.0 - 9.5 [place] [facility] x10(3)/[facility] LABORATORY RBC 3.38 (L) 4.58 - [facility] 5.54 [facility] x10(6)/[facility] LABORATORY Hemoglobin 10.1 (L) 13.7 - [place] 16.5 gm/dL [facility] Hematocrit 30.3 (L) 40.5 - [facility] 48.5 % [facility] MCV 89.6 82.9 - [facility] 93.1 [facility] LABORATORY MCH 29.9 27.5 - [place] 32.1 pg [facility] MCHC 33.3 32.0 - [facility] 35.7 gm/dL [facility] Platelets 127 (L) 145 - 357 [facility] x10(3)/[facility] LABORATORY RDWSD 49.3 (H) 36.0 - [facility] 45.0 [facility] LABORATORY RDWCV 15.2 (H) 11.4 - [place] [facility] 13.8 % [facility] MPV 9.9 7.6 - 12.9 [facility] LABORATORY nRBC % Auto 0.0 % [facility] nRBC Abs Auto 0.000 0.000 - [place] 0.000 [facility] x10(3)/[facility] LABORATORY Specimen Anatomical Collection Method Collection Time Receive d Time (Source) Location / / Volume Laterality Blood specimen 07/09/2017 2:30 AM 017 2:41 (specimen) EST AM EST Resulting Agency Comment Spec In Lab Yuan Webber MD HEMATOLOGY ORDERABLES Performing Organization Address City/State/Z[place] [address] POCT Glucose (07/09/2017 2:10 AM EST) P athologist Signature POC Glucose 169 65 - 199 [facility] mg/dL [facility] Comment: Supplemental ranges: <140 mg/dL before meals <180 mg/dL all other times of the day Specimen Anatomical Collection Method Collection Time Receive d Time (Source) Location / / Volume Laterality Blood specimen 07/09/2017 2:10 AM 12/15/2 017 2:10 (specimen) EST AM EST Yuan Webber MD POINT OF CARE TEST ORDERABLE S Performing Organization Address City/State/[place] [address] POCT Glucose (07/09/2017 1:01 AM EST) P athologist Signature POC Glucose 173 65 - 199 [place] mg/dL [facility] Comment: Supplemental ranges: <140 mg/dL before meals <180 mg/dL all other times of the day Specimen Anatomical Collection Method Collection Time Receive d Time (Source) Location / / Volume Laterality Blood specimen 07/09/2017 1:01 AM 017 1:01 (specimen) EST AM EST Yuan Webber MD POINT OF CARE TEST ORDERABLE S Performing Organization Address City/[facility]/[place] [address] Blood culture (07/09/2017 12:40 AM EST) Patholo gist Method Time Signature Blood Culture No growth [facility] at 5 days. [facility] Specimen Anatomical Collection Method Collection Time Receive d Time (Source) Location / / Volume Laterality Blood specimen STRUCTURE OF RIGHT 07/09/2017 12:40 3:58 (specimen) UPPER LIMB / AM EST AM EST Unknown Resulting Agency Comment Spec In Lab Yuan Webber MD MICROBIOLOGY - BLOOD ORDERAB LES Performing Organization Address City/[facility]/[place] [address] Blood culture (07/09/2017 12:30 AM EST) Patholo gist Method Time Signature Blood Culture No growth [facility] at 5 days. [facility] Specimen Anatomical Collection Method Collection Time Receive d Time (Source) Location / / Volume Laterality Blood specimen STRUCTURE OF LEFT 07/09/2017 12:30 06/25 3:59 (specimen) UPPER LIMB / AM EST AM EST Unknown Resulting Agency Comment Spec In Lab Yuan Webber MD MICROBIOLOGY - BLOOD ORDERAB LES Performing Organization Address City/[facility]/[place] [address] (ABNORMAL) Urinalysis Microscopic Exam [...] Organization Address City/State/[place] [address] (ABNORMAL) Urinalysis with reflex Culture (07/09/2017 12:05 AM EST) Patholo gist Method Time Signature Glucose UA Negative Negative [facility] mg/dL [facility] Protein UA 30 (A) Negative [facility] mg/dL [facility] Bilirubin UA Negative Negative [facility] mg/dL [facility] Comment: Clinical correlation required for [...] [facility] Nitrite UA Negative Negative [facility] LABOR[facility]ORY Leukocytes UA Negative Negative [facility] LABORATORY Appearance UA Hazy (A) Clear [facility] LABORATORY Spec [place] UA 1.025 1.002 - 1.030 [facility] LABORATORY Color UA Yellow Yellow [facility] LABORATORY Culture Reflexed No [facility] LABOR[facility]ORY Specimen (Source) Anatomical Collection Method Collection Time Re ceived Time Location / / Volume Laterality Urine specimen 07/09/2017 12:05 7 obtained via AM EST 12:39 AM EST indwelling urinary catheter (specimen) Resulting Agency Comment Spec In Lab Yuan Webber MD URINE ORDERABLES Performing Organization Address City/State/ZIP Code Phon e Number [address] POCT Glucose (07/08/2017 11:01 PM EST) athologist Signature POC Glucose 191 65 - 199 [facility] mg/dL [facility] Comment: Supplemental ranges: <140 mg/dL before meals <180 mg/dL all other times of the day Specimen Anatomical Collection Method Collection Time Receive d Time (Source) Location / / Volume Laterality Blood specimen 07/08/2017 11:01 7 (specimen) PM EST 11:01 PM EST Yuan Webber MD POINT OF CARE TEST ORDERABLE S Performing Organization Address City/[facility]/ZIP Code Phon e Number [address] POCT Glucose (07/08/2017 10:04 PM EST) athologist Signature POC Glucose 198 65 - 199 [facility] mg/dL [facility] Comment: Supplemental ranges: <140 mg/dL before meals <180 mg/dL all other times of the day Specimen Anatomical Collection Method Collection Time Receive d Time (Source) Location / / Volume Laterality Blood specimen 07/08/2017 10:04 7 (specimen) PM EST 10:04 PM EST Yuan Webber MD POINT OF CARE TEST ORDERABLE S Performing Organization Address City/State/[place] [address] Prepare Albumin 5% in [...] Address City/State/ZIP Code Phon e Number [address] POCT Glucose (07/08/2017 8:28 PM EST) athologist Signature POC Glucose 195 65 - 199 [facility] mg/dL [facility] Comment: Supplemental ranges: <140 mg/dL before meals <180 mg/dL all other times of the day Specimen Anatomical Collection Method Collection Time Receive d Time (Source) Location / / Volume Laterality Blood specimen 07/08/2017 8:28 PM 017 8:28 (specimen) EST PM EST Yuan Webber MD POINT OF CARE TEST ORDERABLE S Performing Organization Address City/State/ZIP Code Phon e Number [address] (ABNORMAL) POCT Glucose (07/08/2017 7:13 PM EST) athologist Signature POC Glucose 220 (H) 65 - 199 [facility] mg/dL [facility] Comment: Supplemental ranges: <140 mg/dL before meals <180 mg/dL all other times of the day Specimen Anatomical Collection Method Collection Time Receive d Time (Source) Location / / Volume Laterality Blood specimen 07/08/2017 7:13 PM 017 7:13 (specimen) EST PM EST Yuan Webber MD POINT OF CARE TEST ORDERABLE S Performing Organization Address City/State/ZIP Code Phon e Number [address] POCT Glucose (07/08/2017 5:04 PM EST) P athologist Signature POC Glucose 147 65 - 199 [facility] mg/dL [facility] Comment: Supplemental ranges: <140 mg/dL before meals <180 mg/dL all other times of the day Specimen Anatomical Collection Method Collection Time Receive d Time (Source) Location / / Volume Laterality Blood specimen 07/08/2017 5:04 PM 017 5:04 (specimen) EST PM EST Yuan Webber MD POINT OF CARE TEST ORDERABLE S Performing Organization Address City/State/[place] [address] (ABNORMAL) BLOOD GAS 2 ARTERIAL (07/08/2017 4:13 PM EST) Analysis Performed At Patho logist Time Signature pH Art 7.38 7.35 - [facility] 7.45 [facility] pCO2 Art 36 35 - 45 [facility] mmHg [facility] pO2 Art 91 85 - 104 [facility] LABORATORY HCO3 Art 20.9 20.0 - [facility] 26.0 [facility] mmol/L [facility] LABORATORY BE Art -4.2 (L) -3.0 - 3.0 [facility] mmol/L [facility] Hgb Blood Gas 11.7 (L) 13.7 - [facility] 16.5 gm/dL [facility] O2HB Art 95.1 94.0 - [facility] 97.0 % [facility] COHB Art 0.6 % [facility] [...] [facility] FIO2 Art 40 % [facility]ORY PF Ratio Art 228 [facility] LABORATORY Specimen Anatomical Collection Method Collection Time Receive d Time (Source) Location / / Volume Laterality Blood specimen 07/08/2017 4:13 PM 017 4:13 (specimen) EST PM EST Yuan Webber MD CHEMISTRY ORDERABLES Performing Organization Address City/[facility]/ZIP [facility] Phon e Number [address] POCT Glucose (07/08/2017 4:01 PM EST) athologist Signature POC Glucose 148 65 - 199 [facility] mg/dL [facility] Comment: Supplemental ranges: <140 mg/dL before meals <180 mg/dL all other times of the day Specimen Anatomical Collection Method Collection Time Receive d Time (Source) Location / / Volume Laterality Blood specimen 07/08/2017 4:01 PM 017 4:01 (specimen) EST PM EST Yuan Webber MD POINT OF CARE TEST ORDERABLE S Performing Organization Address City/[facility]/[place] [address] POCT Glucose (07/08/2017 3:21 PM EST) P athologist Signature POC Glucose 118 65 - 199 [facility] mg/dL [facility] Comment: Supplemental ranges: <140 mg/dL before meals <180 mg/dL all other times of the day Specimen Anatomical Collection Method Collection Time Receive d Time (Source) Location / / Volume Laterality Blood specimen 07/08/2017 3:21 PM 017 3:21 (specimen) EST PM EST Yuan Webber MD POINT OF CARE TEST ORDERABLE S Performing Organization Address City/State/ZIP Code Phon e Number [address] POCT Glucose (07/08/2017 2:01 PM EST) P athologist Signature POC Glucose 129 65 - 199 [place] mg/dL [facility] Comment: Supplemental ranges: <140 mg/dL before meals <180 mg/dL all other times of the day Specimen Anatomical Collection Method Collection Time Receive d Time (Source) Location / / Volume Laterality Blood specimen 07/08/2017 2:01 PM 017 2:01 (specimen) EST PM EST Yuan Webber MD POINT OF CARE TEST ORDERABLE S Performing Organization Address City/[facility]/ZIP Code Phon e Number [address] POCT Glucose (07/08/2017 11:53 AM EST) athologist Signature POC Glucose 156 65 - 199 [place] mg/dL [facility] Comment: Supplemental ranges: <140 mg/dL before meals <180 mg/dL all other times of the day Specimen Anatomical Collection Method Collection Time Receive d Time (Source) Location / / Volume Laterality Blood specimen 07/08/2017 11:53 7 (specimen) AM EST 11:53 AM EST Yuan Webber MD POINT OF CARE TEST ORDERABLE S Performing Organization Address City/State/ZIP Code Phon e Number [address] POCT Glucose (07/08/2017 11:04 AM EST) athologist Signature POC Glucose 181 65 - 199 [place] mg/dL [facility] Comment: Supplemental ranges: <140 mg/dL before meals <180 mg/dL all other times of the day Specimen Anatomical Collection Method Collection Time Receive d Time (Source) Location / / Volume Laterality Blood specimen 07/08/2017 11:04 7 (specimen) AM EST 11:04 AM EST Yuan Webber MD POINT OF CARE TEST ORDERABLE S Performing Organization Address City/State/[place] [address] (ABNORMAL) POCT Glucose (07/08/2017 9:24 AM EST) athologist Signature POC Glucose 203 (H) 65 - 199 [facility] mg/dL [facility] Comment: Supplemental ranges: <140 mg/dL before meals <180 mg/dL all other times of the day Specimen Anatomical Collection Method Collection Time Receive d Time (Source) Location / / Volume Laterality Blood specimen 07/08/2017 9:24 AM 017 9:24 (specimen) EST AM EST Yuan Webber MD POINT OF CARE TEST ORDERABLE S Performing Organization Address City/[facility]/[place] [address] APTT (07/08/2017 8:40 AM EST) athologist Signature PTT 33 25 - 35 sec [facility] Comment: The recommended therapeutic range for fu ll dose, unfractionated heparin at [facility] is 80 ? 114 seconds. The use [...] Webber MD HEMATOLOGY ORDERABLES Performing Organization Address City/[facility]/[place] [address] (ABNORMAL) Prothrombin Time (07/08/2017 [...] Organization Address City/State/[place] [address] (ABNORMAL) POCT Glucose (07/08/2017 7:38 AM EST) P athologist Signature POC Glucose 232 (H) 65 - 199 [facility] mg/dL [facility] Comment: Supplemental ranges: <140 mg/dL before meals <180 mg/dL all other times of the day Specimen Anatomical Collection Method Collection Time Receive d Time (Source) Location / / Volume Laterality Blood specimen 07/08/2017 7:38 AM 017 7:38 (specimen) EST AM EST Yuan Webber MD POINT OF CARE TEST ORDERABLE S Performing Organization Address City/[facility]/[place] [address] (ABNORMAL) POCT Glucose (07/08/2017 7:07 AM EST) athologist Signature POC Glucose 234 (H) 65 - 199 [facility] mg/dL [facility] Comment: Supplemental ranges: <140 mg/dL before meals <180 mg/dL all other times of the day Specimen Anatomical Collection Method Collection Time Receive d Time (Source) Location / / Volume Laterality Blood specimen 07/08/2017 7:07 AM 017 7:07 (specimen) EST AM EST Yuan Webber MD POINT OF CARE TEST ORDERABLE S Performing Organization Address City/[facility]/[place] [address] (ABNORMAL) POCT Glucose (07/08/2017 6:04 AM EST) athologist Signature POC Glucose 225 (H) 65 - 199 [facility] mg/dL [facility] Comment: Supplemental ranges: <140 mg/dL before meals <180 mg/dL all other times of the day Specimen Anatomical Collection Method Collection Time Receive d Time (Source) Location / / Volume Laterality Blood specimen 07/08/2017 6:04 AM 017 6:04 (specimen) EST AM EST Yuan Webber MD POINT OF CARE TEST ORDERABLE S Performing Organization Address City/State/[place] [address] (ABNORMAL) POCT Glucose (07/08/2017 5:31 AM EST) athologist Signature POC Glucose 216 (H) 65 - 199 [facility] mg/dL [facility] Comment: Supplemental ranges: <140 mg/dL before meals <180 mg/dL all other times of the day Specimen Anatomical Collection Method Collection Time Receive d Time (Source) Location / / Volume Laterality Blood specimen 07/08/2017 5:31 AM 017 5:31 (specimen) EST AM EST Yuan Webber MD POINT OF CARE TEST ORDERABLE S Performing Organization Address City/State/[place] [address] (ABNORMAL) POCT Glucose (07/08/2017 4:52 AM EST) athologist Signature POC Glucose 257 (H) 65 - 199 [facility] mg/dL [facility] Comment: Supplemental ranges: <140 mg/dL before meals <180 mg/dL all other times of the day Specimen Anatomical Collection Method Collection Time Receive d Time (Source) Location / / Volume Laterality Blood specimen 07/08/2017 4:52 AM 017 4:52 (specimen) EST AM EST Daphne Shahid MD POINT OF CARE TEST ORDERABLE S Performing Organization Address City/State/[place] [address] (ABNORMAL) BLOOD GAS 2 ARTERIAL (07/08/2017 4:04 AM EST) Analysis Performed At Patho logist Time Signature pH Art 7.30 (L) 7.35 - [facility] 7.45 [facility] pCO2 Art 41 35 - 45 [facility] mmHg [facility] pO2 Art 83 (L) 85 - 104 [facility] LABORATORY HCO3 Art 19.6 (L) 20.0 - [facility] 26.0 [facility] mmol/L [facility] LABORATORY BE Art -6.8 (L) -3.0 - 3.0 [facility] mmol/L [facility] Hgb Blood Gas 12.2 (L) 13.7 - [facility] 16.5 gm/dL [facility] O2HB Art 93.5 (L) 94.0 - [facility] 97.0 % [facility] COHB Art 0.4 % [facility] Comment: Noted by optical instrument inspector. FIO2 Art 40 % [facility] PF Ratio Art 208 [facility] LAB[facility]ORY Specimen Anatomical Collection Method Collection Time Receive d Time (Source) Location / / Volume Laterality Blood specimen 07/08/2017 4:04 AM 017 4:04 (specimen) EST AM EST Daphne Shahid MD CHEMISTRY ORDERABLES Performing Organization Address City/State/ZIP Code Phon e Number [address] Scan, Peripheral Blood [...] Webber MD HEMATOLOGY ORDERABLES Performing Organization Address City/[facility]/ZIP Code Phon e Number [address] (ABNORMAL) Differential, Automated (07/08/2017 4:00 AM EST) Patholo gist Method Time Signature Neutrophils % 85.4 % [facility] Neutr Abs (ANC) 16.07 (H) 1.70 - [facility] 6.10 [facility] x10(3)/[facility] L LABORATORY Lymphocytes % 3.5 % [facility] Lymphocytes Abs 0.6 (L) 0.9 - 3.2 [facility] x10(3)/[facility] LABORATORY Monocytes % 10.4 % [facility] Monocyte Abs 2.0 (H) 0.3 - 0.9 [facility] x10(3)/[facility] LABORATORY Eosinophils % 0.0 % [facility] Eosinophils Abs 0.0 0.0 - 0.4 [facility] x10(3)/[facility] LABORATORY Basophils % 0.1 % [facility] Basophils Abs 0.0 0.0 - 0.1 [facility] x10(3)/[facility] LABORATORY Immature Gran % 0.60 % [...] Organization Address City/State/ZIP Code Phon e Number [place] [id number] (ABNORMAL) Hemogram (07/08/2017 4:00 AM EST) Analysis Performed At Patho logist Time Signature WBC 18.8 (H) 4.0 - 9.5 [facility] x10(3)/[facility] LABORATORY RBC 4.00 (L) 4.58 - [facility] [employer] 5.54 [facility] x10(6)/[facility] LABORATORY Hemoglobin 11.9 (L) 13.7 - [facility] 16.5 gm/dL [facility] Hematocrit 35.9 (L) 40.5 - [facility] SU 48.5 % [facility] MCV 89.8 82.9 - [facility] SU 93.1 [facility] LABORATORY MCH 29.8 27.5 - [place] SU 32.1 pg [facility] MCHC 33.1 32.0 - [facility] 35.7 gm/dL [facility] Platelets 232 145 - 357 [facility] x10(3)/[facility] LABORATORY RDWSD 47.6 (H) 36.0 - [facility] SU 45.0 [facility] RDWCV 14.5 (H) 11.4 - [facility] SU 13.8 % [facility] MPV 9.5 7.6 - 12.9 [facility] LABORATORY nRBC % Auto 0.0 % [facility] nRBC Abs Auto 0.000 0.000 - [facility] 0.000 [facility] x10(3)/[facility] LABORATORY Specimen Anatomical Collection Method Collection Time Receive d Time (Source) Location / / Volume Laterality Blood specimen 07/08/2017 4:00 AM 017 4:09 (specimen) EST AM EST Resulting Agency Comment Spec In Lab Yuan Webber MD HEMATOLOGY ORDERABLES Performing Organization Address City/[facility]/[place] [address] (ABNORMAL) Electrolytes panel (07/08/2017 4:00 AM EST) athologist Signature Sodium 139 135 - 145 [facility] mmol/L [facility] Potassium 4.7 3.5 - 5.0 [facility] mmol/L [facility] Comment: result rechecked-K Please note: [...] Webber MD CHEMISTRY ORDERABLES Performing Organization Address City/[facility]/[place] [address] (ABNORMAL) Cardiac Enzymes (LEB/CGP) (07/08/2017 4:00 AM EST) P athologist Signature Troponin-T 1.88 (H) 0.00 - [facility] 0.00 ng/mL [facility] Comment: The 99th percentile for [...] additional sample may be indicated. Reference: Third [place] Definition of Myocardial Infarction. Journal of the [place] [employer] 2012;60:1581-98 CK, Total 413 (H) 0 - 200 unit/L [facility] Comment: result rechecked-K Specimen Anatomical Collection Method Collection Time Receive d Time (Source) Location / / Volume Laterality Blood specimen 07/08/2017 4:00 AM 017 4:09 (specimen) EST AM EST Resulting Agency Comment Spec In Lab Yuan Webber MD CHEMISTRY ORDERABLES Performing Organization Address City/State/Z[place] [address] (ABNORMAL) Glucose, fasting (07/08/2017 4:00 AM EST) athologist Signature Glucose 287 (H) 65 - 99 [facility] Fasting mg/dL [facility] Comment: ?Fasting* Glucose Interpretive C [...] Webber MD CHEMISTRY ORDERABLES Performing Organization Address [facility] [place] [address] (ABNORMAL) Creatinine (07/08/2017 4:00 AM EST) Analysis Performed At Patho logist Time Signature Creatinine 1.55 (H) 0.80 - [facility] 1.[facility] mg/dL [facility] Estimated GFR 44 (L) >=60 [facility] Comment: The reported eGFR should be multiplied b y 1.2 for patients. The MDRD is not an appropriate measure o f renal function for patients with body mass extremes or in patients with acute kidney failure. http://[employer]VitaPortal/DHnkdep http://[employer]/DHMCnkf Specimen Anatomical Collection Method Collection Time Receive d Time (Source) Location / / Volume Laterality Blood specimen 07/08/2017 4:00 AM 017 4:09 (specimen) EST AM EST Resulting Agency Comment Spec In Lab Yuan Webber MD CHEMISTRY ORDERABLES Performing Organization Address City/[facility]/ZIP Code Phon e Number [address] BUN (07/08/2017 4:00 AM EST) P athologist Signature BUN 16 10 - 20 [facility] mg/dL [facility] Specimen Anatomical Collection Method Collection Time Receive d Time (Source) Location / / Volume Laterality Blood specimen 07/08/2017 4:00 AM 017 4:09 (specimen) EST AM EST Resulting Agency Comment Spec In Lab Yuan Webber MD CHEMISTRY ORDERABLES Performing Organization Address City/[facility]/[place] [address] (ABNORMAL) POCT Glucose (07/08/2017 3:00 AM EST) P athologist Signature POC Glucose 273 (H) 65 - 199 [facility] mg/dL [facility] Comment: Supplemental ranges: <140 mg/dL before meals <180 mg/dL all other times of the day Specimen Anatomical Collection Method Collection Time Receive d Time (Source) Location / / Volume Laterality Blood specimen 07/08/2017 3:00 AM 017 3:00 (specimen) EST AM EST Daphne Shahid MD POINT OF CARE TEST ORDERABLE S Performing Organization Address City/[facility]/[place] [address] (ABNORMAL) POCT Glucose (07/08/2017 1:57 AM EST) P athologist Signature POC Glucose 288 (H) 65 - 199 [facility] mg/dL [facility] Comment: Supplemental ranges: <140 mg/dL before meals <180 mg/dL all other times of the day Specimen Anatomical Collection Method Collection Time Receive d Time (Source) Location / / Volume Laterality Blood specimen 07/08/2017 1:57 AM 017 1:57 (specimen) EST AM EST Daphne Shahid MD POINT OF CARE TEST ORDERABLE S Performing Organization Address City/State/[place] [address] (ABNORMAL) POCT Glucose (07/08/2017 1:01 AM EST) P athologist Signature POC Glucose 315 (H) 65 - 199 [facility] mg/dL [facility] Comment: Supplemental ranges: <140 mg/dL before meals <180 mg/dL all other times of the day Specimen Anatomical Collection Method Collection Time Receive d Time (Source) Location / / Volume Laterality Blood specimen 07/08/2017 1:01 AM 017 1:01 (specimen) EST AM EST Daphne Shahid MD POINT OF CARE TEST ORDERABLE S Performing Organization Address City/State/Z[place] [address] (ABNORMAL) BLOOD GAS 2 ARTERIAL (07/08/2017 12:09 AM EST) athologist Signature pH Art 7.26 7.35 - [facility] (Critical) 7.45 [facility] Comment: Noted by optical instrument [...] [facility] LABOR[facility]ORY COHB Art 0.2 % [facility] Comment: Noted by optical instrument inspector. FIO2 Art 40 % [facility] PF Ratio Art 240 [facility] LABOR[facility]ORY Specimen Anatomical Collection Method Collection Time Receive d Time (Source) Location / / Volume Laterality Blood specimen Arterial Draw / 07/08/2017 12:09 2016 5:31 (specimen) Unknown AM EST AM EST Resulting Agency Comment Spec In Lab Samy Maldonado MD CHEMISTRY ORDERABLES Performing Organization Address City/[facility]/[place] [address] (ABNORMAL) POCT Glucose (07/07/2017 10:56 PM EST) P athologist Signature POC Glucose 292 (H) 65 - 199 [facility] mg/dL [facility] Comment: Supplemental ranges: <140 mg/dL before meals <180 mg/dL all other times of the day Specimen Anatomical Collection Method Collection Time Receive d Time (Source) Location / / Volume Laterality Blood specimen 07/07/2017 10:56 7 (specimen) PM EST 10:56 PM EST Daphne Shahid MD POINT OF CARE TEST ORDERABLE S Performing Organization Address City/State/[place] [address] (ABNORMAL) BLOOD GAS 2 ARTERIAL (07/07/2017 10:04 PM EST) P athologist Signature pH Art 7.22 7.35 - [facility] (Critical) 7.45 [facility] Comment: Noted by optical instrument [...] [facility]ICAL [facility]ENTER LABORATORY COHB Art 0.7 % [facility] Comment: Noted by optical instrument inspector. FIO2 Art 40 % [facility] PF Ratio Art 235 [facility] Specimen Anatomical Collection Method Collection Time Receive d Time (Source) Location / / Volume Laterality Blood specimen 07/07/2017 10:04 7 (specimen) PM EST 10:04 PM EST Daphne Shahid MD CHEMISTRY ORDERABLES Performing Organization Address City/State/Z[place] [address] (ABNORMAL) Hemoglobin (07/07/2017 10:00 PM EST) athologist Signature Hemoglobin 12.8 (L) 13.7 - [place] 16.5 gm/dL [facility] Specimen Anatomical Collection Method Collection Time Receive d Time (Source) Location / / Volume Laterality Blood specimen 07/07/2017 10:00 7 (specimen) PM EST 10:13 PM EST Resulting Agency Comment Spec In Lab Yuan Webber MD HEMATOLOGY ORDERABLES Performing Organization Address City/[facility] [place] [address] (ABNORMAL) Potassium (07/07/2017 10:00 PM EST) athologist [facility] Potassium 3.4 (L) 3.5 - 5.0 [facility]/L [facility] Comment: Please note: ??Patients with [...] Webber MD CHEMISTRY ORDERABLES Performing Organization Address [facility] [place] [address] (ABNORMAL) POCT Glucose (07/07/2017 8:49 PM EST) athologist [facility] POC Glucose 241 (H) 65 - 199 [facility] mg/dL [facility] Comment: Supplemental ranges: <140 mg/dL before meals <180 mg/dL all other times of the day Specimen Anatomical Collection Method Collection Time Receive d Time (Source) Location / / Volume Laterality Blood specimen 07/07/2017 8:49 PM 017 8:49 (specimen) EST PM EST Daphne Shahid MD POINT OF CARE TEST ORDERABLE S Performing Organization Address City/[facility]/ZIP Code Phon e Number [address] Prepare Albumin 5% in [...] BROWN BLOOD BANK ORDERABLES Performing Organization Address City/[facility]/ZIP Code Phon e Number [address] EKG 12 Lead (07/07/2017 7:17 PM EST) Component Value Ref Range Test Analysis Performed Pathologis t Method Time At Signature Ventricular rate 75 BPM MUSE SYSTEM Atrial Rate 75 BPM MUSE SYSTEM P-R Interval 168 ms MUSE SYSTEM QRS Duration 104 ms MUSE SYSTEM Q-T Interval 462 ms MUSE SYSTEM QTC Calculated 515 ms MUSE SYSTEM (Bezet) Calculated P [place] 52 degrees MUSE SYSTEM Calculated R [place] -40 degrees MUSE SYSTEM Calculated T [place] 39 degrees MUSE SYSTEM INTERPRETATION Normal sinus [...] Webber MD ECG ORDERABLES Performing Organization Address City/[facility]/ZIP Code Phon e Number MUSE [...] athologist Signature pH Art 7.21 7.35 - [facility] (Critical) 7.45 [facility] Comment: Noted by optical instrument [...] [facility]ICAL [facility]ENTER LABORATORY COHB Art 0.5 % [facility] Comment: Nonsmokers: 0.5-1.5% COHB Smokers: Variable, but usually less than 10% Toxic: 20-30% COHB Lethal: Greater than 60% COHB METHB Art 0.7 <=1.5 % [facility] Na Whole Blood 140 135 - 145 mmol/L [facility] K Whole Blood 3.0 (Critical) 3.5 - 5.0 mmol/L [facility] Comment: Noted by optical [...] [facility] Comment: Noted by optical instrument inspector. FIO2 Art 100 % [facility] PF Ratio Art 238 [facility] Specimen Anatomical Collection Method Collection Time Receive d Time (Source) Location / / Volume Laterality Blood specimen 07/07/2017 6:57 PM 017 6:57 (specimen) EST PM EST Daphne Shahid MD CHEMISTRY ORDERABLES Performing Organization Address City/State/[place] [address] (ABNORMAL) BLOOD GAS 2 ARTERIAL (07/07/2017 5:31 PM EST) athologist Signature pH Art 7.29 7.35 - [facility] (Critical) 7.45 [facility] Comment: Noted by optical instrument [...] [facility] COHB Art 0.3 % [facility] Shahid MD CHEMISTRY ORDERABLES Performing Organization Address City/[facility]/[place] [address] Fibrinogen (07/07/2017 5:30 PM EST) athologist Signature Fibrinogen 224 180 - 510 [facility] mg/dL [facility] Comment: Called by: JEET, Read [...] Perez MD HEMATOLOGY ORDERABLES Performing Organization Address City/[facility] Code Phon e Number [address] APTT (07/07/2017 5:30 PM EST) athologist Signature PTT 30 25 - 35 sec [facility] Comment: The recommended therapeutic range for fu ll dose, unfractionated heparin at [facility] is 80 ? 114 seconds. The use [...] Perez MD HEMATOLOGY ORDERABLES Performing Organization Address City/[facility]/ZIP [facility] [place] [address] (ABNORMAL) Prothrombin Time (07/07/2017 5:30 PM EST) athologist Signature PT 19.0 (H) 11.8 - 14.0 [facility] sec [facility] INR 1.6 (H) 0.9 - [...] Address City/State/[place] [address] (ABNORMAL) Hemogram (07/07/2017 5:30 PM EST) athologist Signature WBC 19.6 (H) 4.0 - 9.5 [facility] x10(3)/[facility] LABORATORY RBC 3.08 (L) 4.58 - [facility] 5.54 [facility] x10(6)/[facility] LABORATORY Hemoglobin 9.2 (L) 13.7 - [facility] 16.5 gm/dL [facility] Hematocrit 28.0 (L) 40.5 - [facility] 48.5 % [facility] Comment: This result has been [...] RDWSD 46.5 (H) 36.0 - 45.0 fL [facility] RDWCV 14.1 (H) 11.4 - 13.8 % [facility] MPV 9.5 7.6 - 12.9 fL [facility] nRBC % Auto 0.0 % [facility] nRBC Abs Auto 0.000 0.000 - 0.000 x10(3)/[facility] LABORATORY Specimen Anatomical Collection Method Collection Time Receive d Time (Source) Location / / Volume Laterality Blood specimen 07/07/2017 5:30 PM 017 5:34 (specimen) EST PM EST Resulting Agency Comment Spec In Lab Yifan Perez MD HEMATOLOGY ORDERABLES Performing Organization Address City/[facility] Phon e Number [address] Prepare Platelets, Apheresis (07/07/2017 5:00 PM EST) athologist Signature Dispensed? Yes [facility] Specimen Anatomical Collection Method Collection Time Receive d Time (Source) Location / / Volume Laterality Blood specimen 07/07/2017 5:00 PM 017 4:58 (specimen) EST PM EST Daphne Shahid MD BLOOD BANK ORDERABLES Performing Organization Address [facility] Phon e Number [address] Platelet count (07/07/2017 4:55 PM EST) athologist Signature Platelets 177 145 - 357 [facility] x10(3)/[facility] LABORATORY Plat Immature 1.5 0.0 - 7.4 [facility] Comment: Limitation of the Immature Platelet Frac tion (IPF)-May be less reliable when the platelet count is less than [id number]/u L due to statistical imprecision. The IPF [...] in a decreased state of production. References: [employer] The Clinical Value of the Immature Platelet Fraction (IPF) in Cell Recovery Document Number [id number] 12/2010 [employer] The Role of the Imm ature Platelet Fraction (IPF) in the Differential Diagnosis of Thrombocytopen ia, Document [id number] V012/04/13 P012/06 Specimen Anatomical Collection Method Collection Time Receive d Time (Source) Location / / Volume Laterality Blood specimen 07/07/2017 4:55 PM 017 5:13 (specimen) EST PM EST Resulting Agency Comment Spec In Lab Daphne Shahid MD HEMATOLOGY ORDERABLES Performing Organization Address City/[facility]/[place] [address] (ABNORMAL) Hemoglobin and Hematocrit, blood (07/07/2017 4:55 PM EST) athologist Signature Hemoglobin 9.1 (L) 13.7 - 16.5 [facility] gm/dL [facility] Comment: This result has been [...] Shahid MD HEMATOLOGY ORDERABLES Performing Organization Address City/[facility]/[place] [address] (ABNORMAL) BLOOD GAS 2 ARTERIAL (07/07/2017 4:38 PM EST) Analysis Performed At Patho logist Time Signature pH Art 7.37 7.35 - [facility] 7.45 [facility] pCO2 Art 44 35 - 45 [facility] mmHg [facility] pO2 Art 322 (H) 85 - 104 [facility] mmHg [facility] HCO3 Art 24.9 20.0 - [facility] 26.0 [facility] mmol/L [facility] BE Art -0.4 -3.0 - 3.0 [facility] mmol/L [facility] Hgb Blood Gas 10.1 (L) 13.7 - [facility] 16.5 gm/dL [facility] O2HB Art 98.7 (H) 94.0 - [facility] 97.0 % [facility] COHB Art 0.1 % [facility] [...] mmol/L [facility] Comment: Noted by optical instrument [...] Address City/State/[place] [address] (ABNORMAL) BLOOD GAS 2 VENOUS (07/07/2017 4:06 PM EST) Analysis Performed At Patho logist Time Signature pH Cody 7.31 (L) 7.32 - [facility] 7.42 [facility] pCO2 Cody 47 41 - 51 [facility] LABORATORY pO2 Cody 53 (H) 25 - 40 [facility] LABORATORY HCO3 Cody 22.7 mmol/L [facility] BE Cody -3.7 mmol/L [facility] Hgb Blood Gas 10.2 (L) 13.7 - [facility] 16.5 gm/dL [facility] O2HB Cody 81.0 % [facility] [...] mmol/L [facility] Comment: Noted by optical instrument [...] [facility] BGas Source Venous [facility] Specimen Anatomical Collection Method Collection Time Receive d Time (Source) Location / / Volume Laterality Blood specimen 07/07/2017 4:06 PM 017 4:06 (specimen) EST PM EST Daphne Shahid MD CHEMISTRY ORDERABLES Performing Organization Address City/State/Z[place] [address] (ABNORMAL) BLOOD GAS 2 ARTERIAL (07/07/2017 4:05 PM EST) Analysis Performed At Patho logist Time Signature pH Art 7.36 7.35 - [facility] 7.45 [facility] pCO2 Art 40 35 - 45 [facility] LABORATORY pO2 Art 282 (H) 85 - 104 [facility] LABORATORY HCO3 Art 22.1 20.0 - [facility] 26.0 [facility] mmol/L [facility] LABOR[facility]ORY BE Art -3.4 (L) -3.0 - 3.0 [facility] mmol/L [facility] Hgb Blood Gas 10.2 (L) 13.7 - [facility] 16.5 gm/dL [facility] O2HB Art 98.4 (H) 94.0 - [facility] 97.0 % [facility] COHB Art 0.3 % [facility] [...] mmol/L [facility] Comment: Noted by optical instrument [...] Address City/State/ZIP [place] [address] (ABNORMAL) BLOOD GAS 2 ARTERIAL (07/07/2017 2:29 PM EST) Analysis Performed At Patho logist Time Signature pH Art 7.43 7.35 - [facility] 7.45 [facility] pCO2 Art 36 35 - 45 [facility] mmHg [facility] pO2 Art 221 (H) 85 - 104 [facility] LABORATORY HCO3 Art 23.2 20.0 - [facility] 26.0 [facility] mmol/[facility] BE Art -1.2 -3.0 - 3.0 [facility] mmol/L [facility] Hgb Blood Gas 13.9 13.7 - [facility] 16.5 gm/dL [facility] O2HB Art 97.8 (H) 94.0 - [facility] 97.0 % [facility] COHB Art 1.1 % [facility] [...] Shahid MD CHEMISTRY ORDERABLES Performing Organization Address City/[facility] [place] [address] Prepare Coag Factors (Non-Hemophilia) (07/07/2017 1:25 PM EST) P athologist Signature Dispensed? Yes [facility] Specimen Anatomical Collection Method Collection Time Receive d Time (Source) Location / / Volume Laterality Blood specimen 07/07/2017 1:25 PM 017 1:21 (specimen) EST PM EST Daphne Shahid MD BLOOD BANK ORDERABLES Performing Organization Address City/[facility]/[place] [address] Prepare RBC (07/07/2017 1:10 PM EST) P athologist Signature Dispensed? Yes [facility] Specimen Anatomical Collection Method Collection Time Receive d Time (Source) Location / / Volume Laterality Blood specimen 07/07/2017 1:10 PM 017 1:05 (specimen) EST PM EST Daphne Shahid MD BLOOD BANK ORDERABLES Performing Organization Address City/[facility]/ZIP [place] [address] POCT Glucose (07/07/2017 11:56 AM EST) athologist Signature POC Glucose 188 65 - 199 [place] [facility] mg/dL [facility] Comment: Supplemental ranges: <140 mg/dL before meals <180 mg/dL all other times of the day Specimen Anatomical Collection Method Collection Time Receive d Time (Source) Location / / Volume Laterality Blood specimen 07/07/2017 11:56 7 (specimen) AM EST 11:56 AM EST Daphne Shahid MD POINT OF CARE TEST ORDERABLE S Performing Organization Address City/State/ZIP Code Phon e Number [address] POCT Glucose (07/07/2017 11:05 AM EST) athologist Signature POC Glucose 168 65 - 199 [facility] mg/dL [facility] Comment: Supplemental ranges: <140 mg/dL before meals <180 mg/dL all other times of the day Specimen Anatomical Collection Method Collection Time Receive d Time (Source) Location / / Volume Laterality Blood specimen 07/07/2017 11:05 7 (specimen) AM EST 11:05 AM EST Daphne Shahid MD POINT OF CARE TEST ORDERABLE S Performing Organization Address City/State/ZIP Code Phon e Number [address] POCT Glucose (07/07/2017 10:02 AM EST) athologist Signature POC Glucose 191 65 - 199 [place] [facility] mg/dL [facility] Comment: Supplemental ranges: <140 mg/dL before meals <180 mg/dL all other times of the day Specimen Anatomical Collection Method Collection Time Receive d Time (Source) Location / / Volume Laterality Blood specimen 07/07/2017 10:02 7 (specimen) AM EST 10:02 AM EST Daphne Shahid MD POINT OF CARE TEST ORDERABLE S Performing Organization Address City/State/[place] [address] POCT Glucose (07/07/2017 7:53 AM EST) athologist Signature POC Glucose 178 65 - 199 [place] [facility] mg/dL [facility] Comment: Supplemental ranges: <140 mg/dL before meals <180 mg/dL all other times of the day Specimen Anatomical Collection Method Collection Time Receive d Time (Source) Location / / Volume Laterality Blood specimen 07/07/2017 7:53 AM 017 7:53 (specimen) EST AM EST Daphne Shahid MD POINT OF CARE TEST ORDERABLE S Performing Organization Address City/State/[place] [address] POCT Glucose (07/07/2017 7:03 AM EST) athologist Signature POC Glucose 188 65 - 199 [facility] mg/dL [facility] Comment: Supplemental ranges: <140 mg/dL before meals <180 mg/dL all other times of the day Specimen Anatomical Collection Method Collection Time Receive d Time (Source) Location / / Volume Laterality Blood specimen 07/07/2017 7:03 AM 017 7:03 (specimen) EST AM EST Daphne Shahid MD POINT OF CARE TEST ORDERABLE S Performing Organization Address City/State/[place] [address] (ABNORMAL) POCT Glucose (07/07/2017 6:17 AM EST) athologist Signature POC Glucose 207 (H) 65 - 199 [facility] Comment: Supplemental ranges: <140 mg/dL before meals <180 mg/dL all other times of the day Specimen Anatomical Collection Method Collection Time Receive d Time (Source) Location / / Volume Laterality Blood specimen 07/07/2017 6:17 AM 017 6:17 (specimen) EST AM EST Daphne Shahid MD POINT OF CARE TEST ORDERABLE S Performing Organization Address City/State/[place] [address] Differential, Automated (07/07/2017 5:15 AM EST) P athologist Signature Neutrophils % 69.7 % [facility] Neutr Abs (ANC) 5.32 1.70 - [facility] 6.10 [facility] x10(3)/[facility] LABORATORY Lymphocytes % 16.3 % [facility] Lymphocytes Abs 1.2 0.9 - 3.2 [facility] x10(3)/[facility] LABORATORY Monocytes % 10.5 % [facility] Monocyte Abs 0.8 0.3 - 0.9 [facility] x10(3)/[facility] LABORATORY Eosinophils % 2.5 % [facility] Eosinophils Abs 0.2 0.0 - 0.4 [facility] x10(3)/[facility] LABORATORY Basophils % 0.7 % [facility] Basophils Abs 0.0 0.0 - 0.1 [facility] x10(3)/[facility] LABORATORY Immature Gran % 0.30 % [facility] Comment: Immature granulocytes(IG's)percentage an d absolute count will include metamyelocytes, myelocytes, and promyelo cytes. Blood smears from CBCs yielding IG's will be scanned manually for concor dance. If this scan disagrees with the automated IG or if promyelocytes are not ed, a manual differential will be performed. Melisa Gran Abs 0.02 0.00 - 0.04 x10(3)/[facility] MAR Y [facility] Specimen Anatomical Collection Method Collection Time Receive d Time (Source) Location / / Volume Laterality Blood specimen 07/07/2017 5:15 AM 017 5:34 (specimen) EST AM EST Resulting Agency Comment Spec In Lab Daphne Shahid MD HEMATOLOGY ORDERABLES Performing Organization Address City/State/[place] [address] (ABNORMAL) Hemogram (07/07/2017 5:15 AM EST) Analysis Performed At Patho logist Time Signature WBC 7.6 4.0 - 9.5 [facility] x10(3)/[facility] LABORATORY RBC 4.82 4.58 - [facility] 5.54 [facility] x10(6)/[facility] LABORATORY Hemoglobin 14.4 13.7 - [facility] 16.[facility] gm/dL [facility] Hematocrit 42.1 40.5 - [facility] 48.5 % [facility] MCV 87.3 82.9 - [facility] 93[facility]1 [facility] MCH 29.9 27.5 - [place] 32.1 pg [facility] MCHC 34.2 32.0 - [facility] 35.7 gm/dL [facility] Platelets 188 145 - 357 [facility] x10(3)/[facility] LABORATORY RDWSD 45.1 (H) 36.0 - [facility] 45.0 [facility] LABORATORY RDWCV 14.3 (H) 11.4 - [facility] 13.8 % [facility] MPV 9.4 7.6 - 12.9 [facility] LABORATORY nRBC % Auto 0.0 % [facility] nRBC Abs Auto 0.000 0.000 - [facility] 0.000 [facility] x10(3)/[facility] LABORATORY Specimen Anatomical Collection Method Collection Time Receive d Time (Source) Location / / Volume Laterality Blood specimen 07/07/2017 5:15 AM 017 5:34 (specimen) EST AM EST Resulting Agency Comment Spec In Lab Daphne Shahid MD HEMATOLOGY ORDERABLES Performing Organization Address City/State/Z[place] [address] (ABNORMAL) APTT (07/07/2017 5:15 AM EST) P athologist Signature PTT 69 (H) 25 - 35 sec [facility] Comment: The recommended therapeutic range for fu ll dose, unfractionated heparin at [facility] is 80 ? 114 seconds. The use [...] Address City/State/ZIP Code Phon e Number [address] Magnesium (07/07/2017 5:15 AM EST) athologist Signature Magnesium 0.94 0.69 - 1.07 [facility] mmol/L [facility] Specimen Anatomical Collection Method Collection Time Receive d Time (Source) Location / / Volume Laterality Blood specimen 07/07/2017 5:15 AM 017 5:34 (specimen) EST AM EST Resulting Agency Comment Spec In Lab Daphne Shahid MD CHEMISTRY ORDERABLES Performing Organization Address City/[facility]/ZIP Code Phon e Number [address] (ABNORMAL) Basic Metabolic Panel (non-fasting) (07/07/2017 5:15 AM EST) athologist Signature Glucose Lvl 203 (H) 65 - 199 [facility] mg/dL [facility] Comment: Diabetes: >=200 [facility] Estimated GFR >60 >=60 [facility] Comment: The reported eGFR should be multiplied b y 1.2 for patients. The MDRD is not an appropriate measure o f renal function for patients with body mass extremes or in patients with acute kidney failure. http://Stemnion/DHnkdep http://Stemnion/DHMCnkf Specimen Anatomical Collection Method Collection Time Receive d Time (Source) Location / / Volume Laterality Blood specimen 07/07/2017 5:15 AM 017 5:34 (specimen) EST AM EST Resulting Agency Comment Spec In Lab Daphne Shahid MD CHEMISTRY ORDERABLES Performing Organization Address City/State/Z[place] [address] (ABNORMAL) Cardiac Enzymes (LEB/CGP) (07/07/2017 5:15 AM EST) P athologist Signature Troponin-T 2.07 (H) 0.00 [facility] 0[facility] ng/mL [facility] Comment: The 99th percentile for [...] additional sample may be indicated. Reference: Third [place] Definition of Myocardial Infarction. Journal of the [...] Address City/State/ZIP Code Phon e Number [address] POCT Glucose (07/07/2017 5:01 AM EST) athologist Signature POC Glucose 182 65 - 199 [facility] Comment: Supplemental ranges: <140 mg/dL before meals <180 mg/dL all other times of the day Specimen Anatomical Collection Method Collection Time Receive d Time (Source) Location / / Volume Laterality Blood specimen 07/07/2017 5:01 AM 017 5:01 (specimen) EST AM EST Daphne Shahid MD POINT OF CARE TEST ORDERABLE S Performing Organization Address City/State/ZIP Code Phon e Number [address] POCT Glucose (07/07/2017 4:08 AM EST) athologist Signature POC Glucose 199 65 - 199 [facility] mg/dL [facility] Comment: Supplemental ranges: <140 mg/dL before meals <180 mg/dL all other times of the day Specimen Anatomical Collection Method Collection Time Receive d Time (Source) Location / / Volume Laterality Blood specimen 07/07/2017 4:08 AM 017 4:08 (specimen) EST AM EST Daphne Shahid MD POINT OF CARE TEST ORDERABLE S Performing Organization Address City/State/ZIP Code Phon e Number [address] POCT Glucose (07/07/2017 3:03 AM EST) athologist Signature POC Glucose 188 65 - 199 [facility] mg/dL [facility] Comment: Supplemental ranges: <140 mg/dL before meals <180 mg/dL all other times of the day Specimen Anatomical Collection Method Collection Time Receive d Time (Source) Location / / Volume Laterality Blood specimen 07/07/2017 3:03 AM 017 3:03 (specimen) EST AM EST Daphne Shahid MD POINT OF CARE TEST ORDERABLE S Performing Organization Address City/State/[place] [address] (ABNORMAL) POCT Glucose (07/07/2017 2:08 AM EST) P athologist Signature POC Glucose 200 (H) 65 - 199 [facility] mg/dL [facility] Comment: Supplemental ranges: <140 mg/dL before meals <180 mg/dL all other times of the day Specimen Anatomical Collection Method Collection Time Receive d Time (Source) Location / / Volume Laterality Blood specimen 07/07/2017 2:08 AM 017 2:08 (specimen) EST AM EST Daphne Shahid MD POINT OF CARE TEST ORDERABLE S Performing Organization Address City/[facility]/[place] [address] (ABNORMAL) POCT Glucose (07/07/2017 1:31 AM EST) P athologist Signature POC Glucose 209 (H) 65 - 199 [facility] mg/dL [facility] Comment: Supplemental ranges: <140 mg/dL before meals <180 mg/dL all other times of the day Specimen Anatomical Collection Method Collection Time Receive d Time (Source) Location / / Volume Laterality Blood specimen 07/07/2017 1:31 AM 017 1:31 (specimen) EST AM EST Daphne Shahid MD POINT OF CARE TEST ORDERABLE S Performing Organization Address City/[facility]/[place] [address] XR Chest PA or [...] Signature POC Glucose 161 65 - 199 [facility] mg/dL [facility] Comment: Supplemental ranges: <140 mg/dL before meals <180 mg/dL all other times of the day Specimen Anatomical Collection Method Collection Time Receive d Time (Source) Location / / Volume Laterality Blood specimen 07/07/2017 12:07 7 (specimen) AM EST 12:07 AM EST Daphne Shahid MD POINT OF CARE TEST ORDERABLE S Performing Organization Address City/State/Z[place] [address] (ABNORMAL) APTT (07/07/2017 12:00 AM EST) athologist Signature PTT 103 (H) 25 - 35 sec [facility] Comment: The recommended therapeutic range for fu ll dose, unfractionated heparin at [facility] is 80 ? 114 seconds. The use [...] Address City/State/ZIP Code Phon e Number [address] POCT Glucose (07/06/2017 9:55 PM EST) athologist Signature POC Glucose 109 65 - 199 [place] [facility] mg/dL [facility] Comment: Supplemental ranges: <140 mg/dL before meals <180 mg/dL all other times of the day Specimen Anatomical Collection Method Collection Time Receive d Time (Source) Location / / Volume Laterality Blood specimen 07/06/2017 9:55 PM 017 9:55 (specimen) EST PM EST Daphne Shahid MD POINT OF CARE TEST ORDERABLE S Performing Organization Address City/[facility]/ZIP Code Phon e Number [address] POCT Glucose (07/06/2017 9:04 PM EST) athologist Signature POC Glucose 120 65 - 199 [place] [facility] mg/dL [facility] Comment: Supplemental ranges: <140 mg/dL before meals <180 mg/dL all other times of the day Specimen Anatomical Collection Method Collection Time Receive d Time (Source) Location / / Volume Laterality Blood specimen 07/06/2017 9:04 PM 017 9:04 (specimen) EST PM EST Daphne Shahid MD POINT OF CARE TEST ORDERABLE S Performing Organization Address City/[facility]/ZIP Code Phon e Number [address] POCT Glucose (07/06/2017 7:45 PM EST) athologist Signature POC Glucose 158 65 - 199 [place] [facility] mg/dL [facility] Comment: Supplemental ranges: <140 mg/dL before meals <180 mg/dL all other times of the day Specimen Anatomical Collection Method Collection Time Receive d Time (Source) Location / / Volume Laterality Blood specimen 07/06/2017 7:45 PM 017 7:45 (specimen) EST PM EST Daphne Shahid MD POINT OF CARE TEST ORDERABLE S Performing Organization Address City/[facility]/[place] [address] Potassium (07/06/2017 7:40 PM EST) athologist Signature Potassium 3.9 3.5 - 5.0 [facility] mmol/L [facility] Comment: Please note: ??Patients with [...] Shahid MD CHEMISTRY ORDERABLES Performing Organization Address City/[facility]/ZIP Code Phon e Number [address] (ABNORMAL) Cardiac Enzymes (LEB/CGP) (07/06/2017 7:40 PM EST) athologist Signature Troponin-T 2.27 (H) 0.00 - [facility] 0.00 ng/mL [facility] Comment: The 99th percentile for [...] additional sample may be indicated. Reference: Third [place] Definition of Myocardial Infarction. Journal of the [place] [employer] 2012;60:1581-98 CK, Total 93 0 - 200 unit/L [facility] Specimen Anatomical Collection Method Collection Time Receive d Time (Source) Location / / Volume Laterality Blood specimen 07/06/2017 7:40 PM 017 7:52 (specimen) EST PM EST Resulting Agency Comment Spec In Lab Daphne Shahid MD CHEMISTRY ORDERABLES Performing Organization Address City/[facility]/[place] [address] (ABNORMAL) POCT Glucose (07/06/2017 7:13 PM EST) P athologist Signature POC Glucose 200 (H) 65 - 199 [facility] mg/dL [facility] Comment: Supplemental ranges: <140 mg/dL before meals <180 mg/dL all other times of the day Specimen Anatomical Collection Method Collection Time Receive d Time (Source) Location / / Volume Laterality Blood specimen 07/06/2017 7:13 PM 017 7:13 (specimen) EST PM EST Daphne Shahid MD POINT OF CARE TEST ORDERABLE S Performing Organization Address City/State/[place] [address] (ABNORMAL) APTT (07/06/2017 6:15 PM EST) P athologist Signature PTT 94 (H) 25 - 35 sec [facility] Comment: The recommended therapeutic range for fu ll dose, unfractionated heparin at [facility] is 80 ? 114 seconds. The use [...] Shahid MD HEMATOLOGY ORDERABLES Performing Organization Address City/[facility]/[place] [address] (ABNORMAL) POCT Glucose (07/06/2017 6:03 PM EST) athologist Signature POC Glucose 236 (H) 65 - 199 [place] mg/dL [facility] Comment: Supplemental ranges: <140 mg/dL before meals <180 mg/dL all other times of the day Specimen Anatomical Collection Method Collection Time Receive d Time (Source) Location / / Volume Laterality Blood specimen 07/06/2017 6:03 PM 017 6:03 (specimen) EST PM EST Daphne Shahid MD POINT OF CARE TEST ORDERABLE S Performing Organization Address City/[facility]/[place] [address] (ABNORMAL) POCT Glucose (07/06/2017 5:01 PM EST) athologist Signature POC Glucose 235 (H) 65 - 199 [place] mg/dL [facility] Comment: Supplemental ranges: <140 mg/dL before meals <180 mg/dL all other times of the day Specimen Anatomical Collection Method Collection Time Receive d Time (Source) Location / / Volume Laterality Blood specimen 07/06/2017 5:01 PM 017 5:01 (specimen) EST PM EST Daphne Shahid MD POINT OF CARE TEST ORDERABLE S Performing Organization Address City/[facility]/[place] [address] (ABNORMAL) POCT Glucose (07/06/2017 4:06 PM EST) athologist Signature POC Glucose 202 (H) 65 - 199 [place] mg/dL [facility] Comment: Supplemental ranges: <140 mg/dL before meals <180 mg/dL all other times of the day Specimen Anatomical Collection Method Collection Time Receive d Time (Source) Location / / Volume Laterality Blood specimen 07/06/2017 4:06 PM 017 4:06 (specimen) EST PM EST Daphne Shahid MD POINT OF CARE TEST ORDERABLE S Performing Organization Address City/State/[place] [address] POCT Glucose (07/06/2017 2:59 PM EST) athologist Signature POC Glucose 178 65 - 199 [facility] mg[facility]dL [facility] Comment: Supplemental ranges: <140 mg/dL before meals <180 mg/dL all other times of the day Specimen Anatomical Collection Method Collection Time Receive d Time (Source) Location / / Volume Laterality Blood specimen 07/06/2017 2:59 PM 017 2:59 (specimen) EST PM EST Daphne Shahid MD POINT OF CARE TEST ORDERABLE S Performing Organization Address City/State/[place] [address] (ABNORMAL) Cardiac Enzymes (LEB/CGP) (07/06/2017 2:10 PM EST) athologist Signature Troponin-T 2.34 (H) 0.00 - [facility] 0.00 ng/mL [facility] Comment: The 99th percentile for [...] additional sample may be indicated. Reference: Third [place] Definition of Myocardial Infarction. Journal of the [place] [employer] 2012;60:1581-98 CK, Total 101 0 - 200 unit/L [facility] Specimen Anatomical Collection Method Collection Time Receive d Time (Source) Location / / Volume Laterality Blood specimen 07/06/2017 2:10 PM 017 2:26 (specimen) EST PM EST Resulting Agency Comment Spec In Lab Daphne Shahid MD CHEMISTRY ORDERABLES Performing Organization Address City/[facility]/ZIP [facility] Phon e Number [address] POCT Glucose (07/06/2017 2:08 PM EST) P athologist Signature POC Glucose 192 65 - 199 [facility] mg/dL [facility] Comment: Supplemental ranges: <140 mg/dL before meals <180 mg/dL all other times of the day Specimen Anatomical Collection Method Collection Time Receive d Time (Source) Location / / Volume Laterality Blood specimen 07/06/2017 2:08 PM 017 2:08 (specimen) EST PM EST Daphne Shahid MD POINT OF CARE TEST ORDERABLE S Performing Organization Address City/[facility]/[place] [address] POCT Glucose (07/06/2017 1:04 PM EST) P athologist Signature POC Glucose 162 65 - 199 [facility] mg/dL [facility] Comment: Supplemental ranges: <140 mg/dL before meals <180 mg/dL all other times of the day Specimen Anatomical Collection Method Collection Time Receive d Time (Source) Location / / Volume Laterality Blood specimen 07/06/2017 1:04 PM 017 1:04 (specimen) EST PM EST Daphne Shahid MD POINT OF CARE TEST ORDERABLE S Performing Organization Address City/State/ZIP [place] [address] [facility] [address] POCT Glucose (07/06/2017 12:05 PM EST) P athologist Signature POC Glucose 196 65 - 199 [facility] mg/dL [facility] Comment: Supplemental ranges: <140 mg/dL before meals <180 mg/dL all other times of the day Specimen Anatomical Collection Method Collection Time Receive d Time (Source) Location / / Volume Laterality Blood specimen 07/06/2017 12:05 7 (specimen) PM EST 12:05 PM EST Daphne Shahid MD POINT OF CARE TEST ORDERABLE S Performing Organization Address City/[facility]/ZIP Code Phon e Number [address] EKG 12 Lead (07/06/2017 12:00 PM EST) Component Value Ref Range Test Analysis Performed Pathologis t Method Time At Signature Ventricular rate 91 BPM MUSE SYSTEM Atrial Rate 91 BPM MUSE SYSTEM P-R Interval 140 ms MUSE SYSTEM QRS Duration 94 ms MUSE SYSTEM Q-T Interval 394 ms MUSE SYSTEM QTC Calculated 484 ms MUSE SYSTEM (Bezet) Calculated P [place] 36 degrees MUSE SYSTEM Calculated R [place] -19 degrees MUSE SYSTEM Calculated T [place] 104 degrees MUSE SYSTEM INTERPRETATION Normal sinus rhythm MUSE SYSTEM 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) ST & T wave abnormality, consider lateral ischemia Abnormal ECG When compared with ECG of 05-JUL-2017 20:39, No significant change was found Confirmed by MD Luci, Taurus Braun ([id number]) on 07/06/2017 5:07:33 PM Specimen Anatomical Collection Method Collection Time Receive d Time (Source) Location / / Volume Laterality 07/06/2017 12:00 07/06/2017 5:07 PM EST PM EST Daphne Shahid MD ECG ORDERABLES Performing Organization Address City/[facility]/ZIP Code Phon e Number MUSE SYSTEM ABORH Recheck Status (07/06/2017 12:00 PM EST) Patholo gist Method Time Signature ABORH Type Completed [facility] LABORATORY Specimen Anatomical Collection Method Collection Time Receive d Time (Source) Location / / Volume Laterality Blood specimen 07/06/2017 12:00 7 (specimen) PM EST 12:24 PM EST Resulting Agency Comment Spec In Lab Daphne Shahid MD BLOOD BANK ORDERABLES Performing Organization Address City/[facility]/[place] [address] Antibody screen (07/06/2017 12:00 PM EST) Patholo gist Method Time Signature Ab Screen Negative [facility] LABORATORY Expires at 07/09/2017 [facility] [id number] on: [facility] Specimen Anatomical Collection Method Collection Time Receive d Time (Source) Location / / Volume Laterality Blood specimen 07/06/2017 12:00 7 (specimen) PM EST 12:24 PM EST Resulting Agency Comment Spec In Lab Daphne Shahid MD BLOOD BANK ORDERABLES Performing Organization Address City/[facility]/ZIP Code Phon e Number [address] ABO/Rh Typing (07/06/2017 12:00 PM EST) P athologist Signature ABORh Type O Pos [facility] Specimen Anatomical Collection Method Collection Time Receive d Time (Source) Location / / Volume Laterality Blood specimen 07/06/2017 12:00 7 (specimen) PM EST 12:24 PM EST Resulting Agency Comment Spec In Lab Daphne Shahid MD BLOOD BANK ORDERABLES Performing Organization Address City/[facility]/[place] [address] Prothrombin Time (07/06/2017 11:24 [...] Shahid MD HEMATOLOGY ORDERABLES Performing Organization Address City/[facility]/ZIP Code Phon e Number [address] (ABNORMAL) APTT (07/06/2017 11:24 AM EST) P athologist Signature PTT 52 (H) 25 - 35 sec [facility] Comment: The recommended therapeutic range for fu ll dose, unfractionated heparin at [facility] is 80 ? 114 seconds. The use [...] Shahid MD HEMATOLOGY ORDERABLES Performing Organization Address City/[facility]/[place] [address] POCT Glucose (07/06/2017 11:02 AM EST) athologist Signature POC Glucose 187 65 - 199 [facility] mg/dL [facility] Comment: Supplemental ranges: <140 mg/dL before meals <180 mg/dL all other times of the day Specimen Anatomical Collection Method Collection Time Receive d Time (Source) Location / / Volume Laterality Blood specimen 07/06/2017 11:02 7 (specimen) AM EST 11:02 AM EST Daphne Shahid MD POINT OF CARE TEST ORDERABLE S Performing Organization Address City/[facility]/[place] [address] POCT Glucose (07/06/2017 10:18 AM EST) P athologist Signature POC Glucose 193 65 - 199 [place] mg/dL [facility] Comment: Supplemental ranges: <140 mg/dL before meals <180 mg/dL all other times of the day Specimen Anatomical Collection Method Collection Time Receive d Time (Source) Location / / Volume Laterality Blood specimen 07/06/2017 10:18 7 (specimen) AM EST 10:18 AM EST Daphne Shahid MD POINT OF CARE TEST ORDERABLE S Performing Organization Address City/State/[place] [address] POCT Glucose (07/06/2017 9:25 AM EST) athologist [employer] POC Glucose 182 65 - 199 [facility] mg/dL [facility] Comment: Supplemental ranges: <140 mg/dL before meals <180 mg/dL all other times of the day Specimen Anatomical Collection Method Collection Time Receive d Time (Source) Location / / Volume Laterality Blood specimen 07/06/2017 9:25 AM 017 9:25 (specimen) EST AM EST Daphne Shahid MD POINT OF CARE TEST ORDERABLE S Performing Organization Address City/State/[place] [address] (ABNORMAL) Cardiac Enzymes (LEB/CGP) (07/06/2017 8:10 AM EST) [facility] [employer] Troponin-T 2.26 (H) 0.00 - [facility] 0.[facility] ng/mL [facility] Comment: The 99th percentile for [...] additional sample may be indicated. Reference: Third [place] Definition of Myocardial Infarction. Journal of the [place] [employer] 2012;60:1581-98 CK, Total 124 0 - 200 unit/L [facility] Specimen Anatomical Collection Method Collection Time Receive d Time (Source) Location / / Volume Laterality Blood specimen 07/06/2017 8:10 AM 017 8:23 (specimen) EST AM EST Resulting Agency Comment Spec In Lab Daphne Shahid MD CHEMISTRY ORDERABLES Performing Organization Address City/[facility]/[place] [address] Magnesium (07/06/2017 8:10 AM EST) P athologist Signature Magnesium 0.84 0.69 - 1.07 [facility] mmol/L [facility] Specimen Anatomical Collection Method Collection Time Receive d Time (Source) Location / / Volume Laterality Blood specimen 07/06/2017 8:10 AM 017 8:21 (specimen) EST AM EST Resulting Agency Comment Spec In Lab Daphne Shahid MD CHEMISTRY ORDERABLES Performing Organization Address City/[facility]/ZIP [facility] [place] [address] (ABNORMAL) Basic Metabolic Panel (non-fasting) (07/06/2017 8:10 AM EST) P athologist Signature Glucose Lvl 199 65 - 199 [facility] mg/dL [facility] Comment: Diabetes: >=200 [...] or in patients with acute kidney failure. http://Stemnion/DHnkdep http://Stemnion/DHnkf Specimen Anatomical Collection Method Collection Time Receive d Time (Source) Location / / Volume Laterality Blood specimen 07/06/2017 8:10 AM 017 8:21 (specimen) EST AM EST Resulting Agency Comment Spec In Lab Daphne Shahid MD CHEMISTRY ORDERABLES Performing Organization Address City/[facility]/ZIP [place] [address] POCT Glucose (07/06/2017 7:34 AM EST) P athologist Signature POC Glucose 198 65 - 199 [facility] mg/dL [facility] Comment: Supplemental ranges: <140 mg/dL before meals <180 mg/dL all other times of the day Specimen Anatomical Collection Method Collection Time Receive d Time (Source) Location / / Volume Laterality Blood specimen 07/06/2017 7:34 AM 017 7:34 (specimen) EST AM EST Daphne Shahid MD POINT OF CARE TEST ORDERABLE S Performing Organization Address City/[facility]/ZIP [place] [address] POCT Glucose (07/06/2017 7:03 AM EST) P athologist Signature POC Glucose 181 65 - 199 [place] mg/dL [facility] Comment: Supplemental ranges: [...] Number [facility] [address] XR Chest PA or [...] [facility] mg/dL [facility] Comment: Supplemental ranges: <140 mg/dL before meals <180 mg/dL all other times of the day Specimen Anatomical Collection Method Collection Time Receive d Time (Source) Location / / Volume Laterality Blood specimen 07/06/2017 6:21 AM 017 6:21 (specimen) EST AM EST Daphne Shahid MD POINT OF CARE TEST ORDERABLE S Performing Organization Address City/State/[place] [address] POCT Glucose (07/06/2017 5:08 AM EST) athologist Signature POC Glucose 154 65 - 199 [facility] mg/dL [facility] Comment: Supplemental ranges: <140 mg/dL before meals <180 mg/dL all other times of the day Specimen Anatomical Collection Method Collection Time Receive d Time (Source) Location / / Volume Laterality Blood specimen 07/06/2017 5:08 AM 017 5:08 (specimen) EST AM EST Daphne Shahid MD POINT OF CARE TEST ORDERABLE S Performing Organization Address City/State/[place] [address] POCT Glucose (07/06/2017 4:05 AM EST) athologist Signature POC Glucose 142 65 - 199 [facility] mg/dL [facility] Comment: Supplemental ranges: <140 mg/dL before meals <180 mg/dL all other times of the day Specimen Anatomical Collection Method Collection Time Receive d Time (Source) Location / / Volume Laterality Blood specimen 07/06/2017 4:05 AM 017 4:05 (specimen) EST AM EST Daphne Shahid MD POINT OF CARE TEST ORDERABLE S Performing Organization Address City/State/ZIP Code Phon e Number [address] POCT Glucose (07/06/2017 3:00 AM EST) athologist Signature POC Glucose 116 65 - 199 [facility] mg/dL [facility] Comment: Supplemental ranges: <140 mg/dL before meals <180 mg/dL all other times of the day Specimen Anatomical Collection Method Collection Time Receive d Time (Source) Location / / Volume Laterality Blood specimen 07/06/2017 3:00 AM 017 3:00 (specimen) EST AM EST Daphne Shahid MD POINT OF CARE TEST ORDERABLE S Performing Organization Address City/[facility]/ZIP Code Phon e Number [address] Potassium (07/06/2017 2:20 AM EST) athologist [facility] Potassium 3.9 3.5 - 5.0 [facility] mmol/L [facility] Comment: Please note: ??Patients with [...] Shahid MD CHEMISTRY ORDERABLES Performing Organization Address City/[facility]/ZIP Code Phon e Number [address] Differential, Automated (07/06/2017 2:20 AM EST) athologist Signature Neutrophils % 72.9 % [facility] Neutr Abs (ANC) 5.53 1.70 - [facility] 6.10 [facility] x10(3)/[facility] LABORATORY Lymphocytes % 16.4 % [facility] Lymphocytes Abs 1.2 0.9 - 3.2 [facility] x10(3)/[facility] LABORATORY Monocytes % 9.4 % [facility] Monocyte Abs 0.7 0.3 - 0.9 [facility] x10(3)/[facility] LABORATORY Eosinophils % 0.5 % [facility] Eosinophils Abs 0.0 0.0 - 0.4 [facility] x10(3)/[facility] LABORATORY Basophils % 0.4 % [facility] Basophils Abs 0.0 0.0 - 0.1 [facility] x10(3)/[facility] LABORATORY Immature Gran % 0.40 % [facility] Comment: Immature granulocytes(IG's)percentage an d absolute count will include metamyelocytes, myelocytes, and promyelo cytes. Blood smears from CBCs yielding IG's will be scanned manually for concor dance. If this scan disagrees with the automated IG or if promyelocytes are not ed, a manual differential will be performed. Melisa Gran Abs 0.03 0.00 - 0.04 x10(3)/[facility] MAR Y [facility] LABORATORY Specimen Anatomical Collection Method Collection Time Receive d Time (Source) Location / / Volume Laterality Blood specimen 07/06/2017 2:20 AM 017 2:33 (specimen) EST AM EST Resulting Agency Comment Spec In Lab Daphne Shahid MD HEMATOLOGY ORDERABLES Performing Organization Address City/State/[place] [address] (ABNORMAL) Hemogram (07/06/2017 2:20 AM EST) Analysis Performed At Patho logist Time Signature WBC 7.6 4.0 - 9.5 [facility] x10(3)/[facility] LABORATORY RBC 4.52 (L) 4.58 - [facility] 5.54 [facility] x10(6)/[facility] LABORATORY Hemoglobin 13.4 (L) 13.7 - [facility] 16.5 gm/dL [facility] Hematocrit 39.7 (L) 40.5 - [facility] 48.5 % [facility] MCV 87.8 82.9 - [facility] 93.1 [facility] LABORATORY MCH 29.6 27.5 - [place] 32.1 pg [facility] MCHC 33.8 32.0 - [place] 35.7 gm/dL [facility] Platelets 189 145 - 357 [facility] x10(3)/[facility] LABORATORY RDWSD 45.6 (H) 36.0 - [facility] 45.0 [facility] LABORATORY RDWCV 14.3 (H) 11.4 [facility] 13.8 % [facility] MPV 9.1 7.6 - 12.9 [facility] LABORATORY nRBC % Auto 0.0 % [facility] nRBC Abs Auto 0.000 0.000 - [facility] 0.000 [facility] x10(3)/[facility] LABORATORY Specimen Anatomical Collection Method Collection Time Receive d Time (Source) Location / / Volume Laterality Blood specimen 07/06/2017 2:20 AM 017 2:33 (specimen) EST AM EST Resulting Agency Comment Spec In Lab Daphne Shahid MD HEMATOLOGY ORDERABLES Performing Organization Address City/State/Z[place] [address] (ABNORMAL) APTT (07/06/2017 2:20 AM EST) P athologist Signature PTT 52 (H) 25 - 35 sec [facility] Comment: The recommended therapeutic range for fu ll dose, unfractionated heparin at [facility] is 80 ? 114 seconds. The use [...] Address City/State/ZIP Code Phon e Number [address] POCT Glucose (07/06/2017 2:20 AM EST) athologist Signature POC Glucose 115 65 - 199 [facility] mg/dL [facility] Comment: Supplemental ranges: <140 mg/dL before meals <180 mg/dL all other times of the day Specimen Anatomical Collection Method Collection Time Receive d Time (Source) Location / / Volume Laterality Blood specimen 07/06/2017 2:20 AM 017 2:20 (specimen) EST AM EST Daphne Shahid MD POINT OF CARE TEST ORDERABLE S Performing Organization Address City/[facility]/[place] [address] (ABNORMAL) Cardiac Enzymes (LEB/CGP) (07/06/2017 2:20 AM EST) athologist Signature Troponin-T 2.13 (H) 0.00 - [place] 0.00 ng/mL [facility] Comment: The 99th percentile for [...] additional sample may be indicated. Reference: Third [place] Definition of Myocardial Infarction. Journal of the [...] Address City/State/[place] [address] (ABNORMAL) Hemoglobin A1c (07/06/2017 [...] [id number] Est Avg Gluc See note mg/dL [place] [...] with hemoglobinopathies. Additional resources are available on [facility] website. Macario HAMMOND, Ruthann J, Deysi R, et al. ??Tr anslating the A1C assay into estimated average glucose values. ??Diabetes Care 2008:31(8):4124-7807. Specimen Anatomical Collection Method Collection Time Receive d Time (Source) Location / / Volume Laterality Blood specimen 07/06/2017 2:20 AM 017 2:34 (specimen) EST AM EST Resulting Agency Comment Spec In Lab Daphne Shahid MD CHEMISTRY ORDERABLES Performing Organization Address City/State/Z[place] [address] (ABNORMAL) Lipid Panel (07/06/2017 2:20 AM EST) [facility] Method Time Signature Chol, Total 150 <=239 [place] mg/dL [facility] LABORATORY Triglycerides 129 <=199 [facility] mg/dL [facility] HDL 32 (L) >=40 [facility] mg/dL [facility] LDL Cholesterol 92 <=190 [facility] mg/dL [facility] Chol/HDL Ratio 4.7 ratio [facility] Lipid See Note [place] Interpretation [facility] Comment: Lipid management should be guided by a p atient? s ASCVD risk, goals and preferences. ACC/AHA Guidelines recommend high intens ity statin if clinical ASCVD or LDL greater than or equal to 190 mg/dL. http://Inspherionurl.com/IIO-BEM-Yfxsffitm Adults aged 40-75 with LDL 70-189 mg/dL should have their 10 year ASCVD risk estimated with the ACC/AHA ASCVD risk es timator http://tools.acc.org/JLFTI-Pgcy-Ilhnxsha r/ Statin should be discussed if risk [...] Address City/State/ZIP Code Phon e Number [address] POCT Glucose (07/06/2017 1:09 AM EST) athologist Signature POC Glucose 121 65 - 199 [facility] mg/dL [facility] Comment: Supplemental ranges: <140 mg/dL before meals <180 mg/dL all other times of the day Specimen Anatomical Collection Method Collection Time Receive d Time (Source) Location / / Volume Laterality Blood specimen 07/06/2017 1:09 AM 017 1:09 (specimen) EST AM EST Daphne Shahid MD POINT OF CARE TEST ORDERABLE S Performing Organization Address City/[facility]/[place] [address] POCT Glucose (07/06/2017 12:06 AM EST) athologist Signature POC Glucose 147 65 - 199 [facility] mg/dL [facility] Comment: Supplemental ranges: <140 mg/dL before meals <180 mg/dL all other times of the day Specimen Anatomical Collection Method Collection Time Receive d Time (Source) Location / / Volume Laterality Blood specimen 07/06/2017 12:06 7 (specimen) AM EST 12:06 AM EST Daphne Shahid MD POINT OF CARE TEST ORDERABLE S Performing Organization Address City/State/[place] [address] (ABNORMAL) POCT Glucose (07/05/2017 10:56 PM EST) athologist Signature POC Glucose 200 (H) 65 - 199 [facility] mg/dL [facility] Comment: Supplemental ranges: <140 mg/dL before meals <180 mg/dL all other times of the day Specimen Anatomical Collection Method Collection Time Receive d Time (Source) Location / / Volume Laterality Blood specimen 07/05/2017 10:56 7 (specimen) PM EST 10:56 PM EST Daphne Shahid MD POINT OF CARE TEST ORDERABLE S Performing Organization Address City/State/[place] [address] (ABNORMAL) POCT Glucose (07/05/2017 10:05 PM EST) athologist Signature POC Glucose 225 (H) 65 - 199 [facility] mg/dL [facility] Comment: Supplemental ranges: <140 mg/dL before meals <180 mg/dL all other times of the day Specimen Anatomical Collection Method Collection Time Receive d Time (Source) Location / / Volume Laterality Blood specimen 07/05/2017 10:05 7 (specimen) PM EST 10:05 PM EST Daphne Shahid MD POINT OF CARE TEST ORDERABLE S Performing Organization Address City/State/[place] [address] (ABNORMAL) POCT Glucose (07/05/2017 9:02 PM EST) athologist Signature POC Glucose 301 (H) 65 - 199 [place] mg/dL [facility] Comment: Supplemental ranges: <140 mg/dL before meals <180 mg/dL all other times of the day Specimen Anatomical Collection Method Collection Time Receive d Time (Source) Location / / Volume Laterality Blood specimen 07/05/2017 9:02 PM 017 9:02 (specimen) EST PM EST Daphne Shahid MD POINT OF CARE TEST ORDERABLE S Performing Organization Address City/State/[place] [address] XR Chest PA or [...] 474 ms MUSE SYSTEM (Bezet) Calculated P [place] 50 degrees MUSE SYSTEM Calculated R [place] -28 degrees MUSE SYSTEM Calculated T [place] 90 degrees MUSE SYSTEM INTERPRETATION Sinus tachycardia [...] (ABNORMAL) Differential, Automated (07/05/2017 8:20 PM EST) [facility] gist Method Time Signature Neutrophils % 88.4 % [facility]ORAT[facility] Neutr Abs (ANC) 9.08 (H) 1.70 - [facility] 6.10 [facility] x10(3)/[facility] LABORATORY Lymphocytes % 7.0 % [facility] Lymphocytes Abs 0.7 (L) 0.9 - 3.2 [facility] x10(3)/[facility] LABORATORY Monocytes % 3.7 % [facility] Monocyte Abs 0.4 0.3 - 0.9 [facility] x10(3)/[facility] LABORATORY Eosinophils % 0.1 % [facility] Eosinophils Abs 0.0 0.0 - 0.4 [facility] x10(3)/[facility] LABORATORY Basophils % 0.2 % [facility] Basophils Abs 0.0 0.0 - 0.1 [facility] x10(3)/[facility] LABORATORY Immature Gran % 0.60 % [...] Address City/State/Z[place] [address] (ABNORMAL) Hemogram (07/05/2017 8:20 PM EST) Analysis Performed At Patho logist Time Signature WBC 10.3 (H) 4.0 - 9.5 [facility] x[facility](3[facility] LABORATORY RBC 4.64 4.58 - [place] 5.54 [facility] x10(6)/[facility] LABORATORY Hemoglobin 14.1 13.7 - [facility] 16.5 gm/dL [facility] Hematocrit 40.8 40.5 - [facility] 48.5 % [facility] MCV 87.9 82.9 - [facility] SU 93.1 [facility] LABORATORY MCH 30.4 27.5 - [place] 32.1 pg [facility] MCHC 34.6 32.0 - [facility] SU 35.7 gm/dL [facility] Platelets 204 145 - 357 [facility] x10(3)/[facility] LABORATORY RDWSD 46.1 (H) 36.0 - [facility] 45.0 [facility] LABORATORY RDWCV 14.5 (H) 11.4 - [facility] SU 13.8 % [facility] MPV 9.7 7.6 - 12.9 [facility] nRBC % Auto 0.0 % [facility] nRBC Abs Auto 0.000 0.000 - [facility] SU 0.000 [facility] x10(3)/[facility] LABORATORY Specimen Anatomical Collection Method Collection Time Receive d Time (Source) Location / / Volume Laterality Blood specimen 07/05/2017 8:20 PM 017 8:27 (specimen) EST PM EST Resulting Agency Comment Spec In Lab Daphne Shahid MD HEMATOLOGY ORDERABLES Performing Organization Address City/State/ZIP Code Phon e Number [place] [address] APTT (07/05/2017 8:20 PM EST) athologist Signature PTT 32 25 - 35 sec [facility] Comment: The recommended therapeutic range for fu ll dose, unfractionated heparin at [facility] is 80 ? 114 seconds. The use [...] Organization Address City/State/[place] [address] (ABNORMAL) Cardiac Enzymes (LEB/CGP) (07/05/2017 8:20 PM EST) athologist Signature Troponin-T 2.11 (H) 0.00 - [facility] 0.00 ng/mL [facility] Comment: The 99th percentile for [...] additional sample may be indicated. Reference: Third [place] Definition of Myocardial Infarction. Journal of the [place] College [employer]iology 2012;60:1581-98 CK, Total 149 0 - 200 unit/L [facility] Specimen Anatomical Collection Method Collection Time Receive d Time (Source) Location / / Volume Laterality Blood specimen 07/05/2017 8:20 PM 017 8:27 (specimen) EST PM EST Resulting Agency Comment Spec In Lab Daphne Shahid MD CHEMISTRY ORDERABLES Performing Organization Address City/[facility]/ZIP Code Phon e Number [address] (ABNORMAL) Magnesium (07/05/2017 8:20 PM EST) P athologist Signature Magnesium 0.68 (L) 0.69 - 1.07 [facility] mmol/L [facility] Specimen Anatomical Collection Method Collection Time Receive d Time (Source) Location / / Volume Laterality Blood specimen 07/05/2017 8:20 PM 017 8:27 (specimen) EST PM EST Resulting Agency Comment Spec In Lab Daphne Shahid MD CHEMISTRY ORDERABLES Performing Organization Address City/[facility]/[place] [address] (ABNORMAL) Basic Metabolic Panel (non-fasting) (07/05/2017 8:20 PM EST) P athologist Signature Glucose Lvl 321 (H) 65 - 199 [facility] mg/dL [facility] Comment: Diabetes: >=200 [...] or in patients with acute kidney failure. http://Stemnion/DHnkdep http://Stemnion/DHMCnkf Specimen Anatomical Collection Method Collection Time Receive d Time (Source) Location / / Volume Laterality Blood specimen 07/05/2017 8:20 PM 017 8:27 (specimen) EST PM EST Resulting Agency Comment Spec In Lab Daphne Shahid MD CHEMISTRY ORDERABLES Performing Organization Address City/State/[place] [address] (ABNORMAL) POCT Glucose (07/05/2017 7:32 PM EST) P athologist Signature POC Glucose 296 (H) 65 - 199 [facility] mg/dL [facility] Comment: Supplemental ranges: <140 mg/dL before meals <180 mg/dL all other times of the day Specimen Anatomical Collection Method Collection Time Receive d Time (Source) Location / / Volume Laterality Blood specimen 07/05/2017 7:32 PM 017 7:32 (specimen) EST PM EST Daphne Shahid MD POINT OF CARE TEST ORDERABLE S Performing Organization Address City/State/[place] [address] CARDIAC CATHETERIZATION (07/05/2017 6:47 PM EST) Anatomical Region Laterality Modality Other Specimen (Source) Anatomical Location Collection Method / Collectio n Time Received Time / Laterality Volume Narrative 07/05/2017 7:27 PM EST ?[facility] ? Cardiac Cathete rization/Intervention Report ? Patient Name: Gregory Hoang ? Procedure Date: 07/05/2017 ? A #: [id number] ? Primary Physician: Clarisa, Jet T ? Case #: [id number] ? File Name: [id number] ? Catheterization Order Number: [id number] ? [facility] ? Final Report [place], [place] ? Patient Name: ? Gregory Natalya ?ID#: ?[id number] ? : ?1945 ? Procedure Date: ? [...] presented with: non -STEMI (w/i 7 days). [place] ?Cardiovascular Society angina c lass was IV. [...] site angio graphy and IABP insertion in skill labor. ? Jet Mckenna M.D. ? Electronically Signed by: Jet bunch M.D. ? Report Finalized: 07/05/2017 ??19:23 ? Report Last Ammended: 10/26/2017 ??10:29 ? Procedure Note Jet Mckenna MD - 10/26/2017Formatt ing of this note might be different from the original. [facility] Cardiac Catheterization/Intervention Re port Patient Name: Gregory Hoang Procedure Date: 07/05/2017 A #: [id number] Primary Physician: Jet Mckenna Case #: [id number] File Name: [id number] Catheterization Order Number: [id number] [facility] [place] Final Report [place], [place] Patient Name: Gregory Hoang ID#: [id number] : 1945 Procedure Date: July 05, [...] presented with: non-STEMI ( w/i 7 days). [place] [employer] Society angina class was IV. No [...] site angiograph y and IABP insertion in skill labor. Jet Mckenna M.D. Electronically Signed by: Jet [...] Mccollum ? (Age): 1945(72y) Med Rec#: ? [id number] ?Sex: ?M ? Site Loc: ? [facility] ?Ht / Wt: ??173(cm)/86(kg) Pt. Loc: ?CCU ? BSA: ?2 Study Date: ?? 07/05/2017 ?Pt. Type: Inpatient Tape: ? Referring: Daphne Shahid ([id number]) Referring: MANDA ALCANTAR Reading: Blade Preston ([id number]) Geothermal Operating Engineer: Dayami Paula BA, [facility] Diagnosis: *ICD-10-PCS Non-ST elevation (NSTEMI) m [...] E-wave Vmax ?0.8 ?m/sec ? MV deceleration [id number] ?msec ? MV A-wave Vmax ?0.8 ?m/sec [...] ? Mid-Inferior ?Akinetic ? Mid-Inferoseptal ?Hypokinetic ? [place]-Septal ? Akinetic ? [place]-Anterior ? Hypokinetic ? [place]-Lateral ?Hypokinetic ? [place]-Inferior ? Akinetic ? [place]-Tip ?Akinetic ? This report has been electronically sign ed by: _ Blade Preston MD ? 07/06/2017 08 :53:15 Images reviewed and interpretation [facility] Cardiac Ultrasound Laboratory Procedure Note Blade Preston MD - 07/06/2017Formatt ing of this note might be different from the original. Procedure: Transthoracic Echocardiogram Patient: NATALYA MCBRIDE(Age): [birth year]72y) Med Rec#: [id number] Sex: M Site Loc: [facility] Ht / Wt: 173(cm)/86(kg) Pt. Loc: CCU BSA: 2 Study Date: 07/05/2017 Pt. Type: Inpatie nt Tape: Referring: Daphne Shahid ([id number]) Referring: MANDA ALCANTAR Reading: Blade Preston ([id number]) Geothermal Operating Engineer: Dayami Paula BA, [facility] Diagnosis: *ICD-10-PCS Non-ST elevation (NSTEMI) m [...] MV E-wave Vmax 0.8 m/sec MV deceleration [id number] msec MV A-wave Vmax 0.8 m/sec MV [...] Hypokinetic Mid-Posterolateral Hypokinetic Mid-Inferior Akinetic Mid-Inferoseptal Hypokinetic [place]-Septal Akinetic [place]-Anterior Hypokinetic [place]-Lateral Hypokinetic [place]-Inferior Akinetic [place]-Tip Akinetic This report has been electronically sign ed by: _ Blade Preston MD 07/06/2017 08:53:15 Images reviewed and interpretation ver ied [facility] Cardiac Ultrasound Laboratory Daphne Shahid MD ECHO ORDERABLES Differential, Automated (07/05/2017 4:55 PM EST) athologist Signature Neutrophils % 77.0 % [facility] Neutr Abs (ANC) 5.26 1.70 - [facility] 6.10 [facility] x10(3)/[facility] LABORATORY Lymphocytes % 13.3 % [facility] Lymphocytes Abs 0.9 0.9 - 3.2 [facility] x10(3)/[facility] LABORATORY Monocytes % 8.2 % [facility] Monocyte Abs 0.6 0.3 - 0.9 [facility] x10(3)/[facility] LABORATORY Eosinophils % 0.7 % [facility] Eosinophils Abs 0.0 0.0 - 0.4 [facility] x10(3)/[facility] LABORATORY Basophils % 0.4 % [facility] Basophils Abs 0.0 0.0 - 0.1 [facility] x10(3)/[facility] LABORATORY Immature Gran % 0.40 % [facility] Comment: Immature granulocytes(IG's)percentage an d absolute count will include metamyelocytes, myelocytes, and promyelo cytes. Blood smears from CBCs yielding IG's will be scanned manually for concor dance. If this scan disagrees with the automated IG or if promyelocytes are not ed, a manual differential will be performed. Melisa Gran Abs 0.03 0.00 - 0.04 x10(3)/[facility] MAR Y [facility] LABORATORY Specimen Anatomical Collection Method Collection Time Receive d Time (Source) Location / / Volume Laterality Blood specimen 07/05/2017 4:55 PM 017 5:24 (specimen) EST PM EST Resulting Agency Comment Spec In Lab Daphne Shahid MD HEMATOLOGY ORDERABLES Performing Organization Address City/State/Z[place] [address] (ABNORMAL) Hemogram (07/05/2017 4:55 PM EST) Analysis Performed At Patho logist Time Signature WBC 6.8 4.0 - 9.5 [facility] x10(3)/[facility] LABORATORY RBC 4.67 4.58 - [facility] 5.54 [facility] x10(6)/[facility] LABORATORY Hemoglobin 14.0 13.7 - [place] [facility] 16.5 gm/dL [facility] Hematocrit 41.0 40.5 - [place] [facility] 48.5 % [facility] MCV 87.8 82.9 - [facility] 93.1 [facility] LABORATORY MCH 30.0 27.5 - [place] 32.1 pg [facility] MCHC 34.1 32.0 - [place] 35.7 gm/dL [facility] Platelets 197 145 - 357 [facility] x10(3)/[facility] LABORATORY RDWSD 46.4 (H) 36.0 - [place] 45.0 [facility] LABORATORY RDWCV 14.5 (H) 11.4 - [place] 13.8 % [facility] MPV 9.7 7.6 - 12.9 [facility] LABORATORY nRBC % Auto 0.0 % [facility] nRBC Abs Auto 0.000 0.000 - [place] 0.000 [facility] x10(3)/[facility] LABORATORY Specimen Anatomical Collection Method Collection Time Receive d Time (Source) Location / / Volume Laterality Blood specimen 07/05/2017 4:55 PM 017 5:24 (specimen) EST PM EST Resulting Agency Comment Spec In Lab Daphne Shahid MD HEMATOLOGY ORDERABLES Performing Organization Address City/State/Z[place] [address] (ABNORMAL) Cardiac Enzymes (LEB/CGP) (07/05/2017 4:55 PM EST) P athologist Signature Troponin-T 1.69 (H) 0.00 - [place] 0.00 ng/mL [facility] Comment: The 99th percentile for [...] additional sample may be indicated. Reference: Third [place] Definition of Myocardial Infarction. Journal of the [...] Address City/State/ZIP Code Phon e Number [address] (ABNORMAL) pro-Brain Natriuretic Peptide (07/05/2017 4:55 PM EST) P athologist Signature ProBNP 1,598 (H) <=125 [facility] pg/mL [facility] Specimen Anatomical Collection Method Collection Time Receive d Time (Source) Location / / Volume Laterality Blood specimen 07/05/2017 4:55 PM 017 5:24 (specimen) EST PM EST Resulting Agency Comment Spec In Lab Daphne Shahid MD CHEMISTRY ORDERABLES Performing Organization Address City/State/ZIP Code Phon e Number [address] Magnesium (07/05/2017 4:55 PM EST) P athologist Signature Magnesium 0.78 0.69 - 1.07 [facility] mmol/L [facility] Specimen Anatomical Collection Method Collection Time Receive d Time (Source) Location / / Volume Laterality Blood specimen 07/05/2017 4:55 PM 017 5:24 (specimen) EST PM EST Resulting Agency Comment Spec In Lab Daphne Shahid MD CHEMISTRY ORDERABLES Performing Organization Address City/State/ZIP [place] [address] (ABNORMAL) Basic Metabolic Panel (non-fasting) (07/05/2017 4:55 PM EST) P athologist Signature Glucose Lvl 230 (H) 65 - 199 [facility] mg/dL [facility] Comment: Diabetes: >=200 [...] or in patients with acute kidney failure. http://[employer].VitaPortal/DHnkdep http://Stemnion/DHMCnkf Specimen Anatomical Collection Method Collection Time Receive d Time (Source) Location / / Volume Laterality Blood specimen 07/05/2017 4:55 PM 017 5:24 (specimen) EST PM EST Resulting Agency Comment Spec In Lab Daphne Shahid MD CHEMISTRY ORDERABLES Performing Organization Address City/[facility]/[place] [address] (ABNORMAL) APTT (07/05/2017 4:55 PM EST) P athologist Signature PTT 41 (H) 25 - 35 sec [facility] Comment: The recommended therapeutic range for fu ll dose, unfractionated heparin at [facility] is 80 ? 114 seconds. The use [...] Shahid MD HEMATOLOGY ORDERABLES Performing Organization Address City/[facility]/[place] [address] (ABNORMAL) POCT Glucose (07/05/2017 4:53 PM EST) athologist Signature POC Glucose 208 (H) 65 - 199 [facility] mg/dL [facility] Comment: Supplemental ranges: <140 mg/dL before meals <180 mg/dL all other times of the day Specimen Anatomical Collection Method Collection Time Receive d Time (Source) Location / / Volume Laterality Blood specimen 07/05/2017 4:53 PM 017 4:53 (specimen) EST PM EST Daphne Shahid MD POINT OF CARE TEST ORDERABLE S Performing Organization Address City/[facility]/[place] [address] EKG 12 Lead (07/05/2017 4:32 PM EST) Component Value Ref Range Test Analysis Performed Pathologis t Method Time At Signature Ventricular rate 97 BPM MUSE SYSTEM Atrial Rate 97 BPM MUSE SYSTEM P-R Interval 148 ms MUSE SYSTEM QRS Duration 96 ms MUSE SYSTEM Q-T Interval 364 ms MUSE SYSTEM QTC Calculated 462 ms MUSE SYSTEM (Bezet) Calculated P [place] 48 degrees MUSE SYSTEM Calculated R [place] -33 degrees MUSE SYSTEM Calculated T [place] 98 degrees MUSE SYSTEM INTERPRETATION Normal sinus [...] of unspecified type of vessel, [place] or graft Cardiomyopathy, ischemic Other specified forms [...] post-op day 1 in the AM Give NE if unable to take PO, Routine Given [...] dose on Wed07/07/17 at 2100, Until Discontinued, [place] teeth, Routine Given 07/08/2017 10:06 PM EST [...] or norepinephrine is ineffective. Call pager # [phone] if initiated. Rate/Dose Change 07/08/2017 7:01 PM [...] if phenyleprine and/or vasopressin ineffective.Call pager # [phone] if initiated., Routine Rate/Dose Change 07/09/2017 1:24 [...] L/min/M2. Maximum volume 2 L. Call warehouse hand for additional fluid orders: pager #[phone]. Rate/Dose Verify 07/08/2017 4:00 AM EST 100 [...] post-op day 1 in the AM Give NE if unable to take PO, Routine atorvastatin [...] post-op day 1 in the AM Give NE if unable to take PO
Routine Group [...]
Routine documented in this encounter Care Teams Deck Mate Relationship Specialty Start Date End Date Lovely Vicente MD PCP - General 04/16/[address] [place] [address] documented as of this encounter
--- OUTSIDE RECORDS SUMMARY | 2022-04-06 10:43 | XMS_ITS | Encounter Summary ---
:1945 Author Organization [facility] [place] [address] Care Team Providers Name Role Phone Lovely Vicente MD Primary Care Provider Encounter Details Date Type Department Care Team Description 07/08/2017 Orders Only Cardiology [facility], [place] [address] Social History Tobacco Use Types Packs/Day [...] Zulma Dolan MD [facility] [place] [address] (Wo rk) 05/28/2022 Laboratory Appointment Lab 05/28/2022 Office Visit Cardiology Zulma Dolan MD [facility] [place] [address] Liz Poole PA [facility] [place] [address] 06/10/2022 Office Visit Dermatology Laura Scherer MD [facility] ER [address] [place] [address] (Wo rk) documented as of this encounter [...] Mccollum ? (Age): 1945(72y) Med Rec#: ? [id number] ?Sex: ?M ? Site Loc: ? Ht / Wt: ??(cm)/ (kg) ? Pt. Loc: ? Study Date: ?? 07/07/2017 ?Pt. Type: Tape: ? Referring: Yuan Retana Reading: Yifan Perez MD ([id number]) Performing: Yifan Perez MD ([id number]) Diagnosis: SUMMARY: 1. Intraoperative AVELINO performed at the [facility] of Dr. Mike for the diagnosis and [...] ? Mid-Inferior ?Hypokinetic ? Mid-Inferoseptal ?Hypokinetic ? [place]-Septal ? Hypokinetic ? [place]-Anterior ? Hypokinetic ? [place]-Lateral ?Hypokinetic ? [place]-Inferior ? Hypokinetic ? [place]-Tip ?Not Seen ? This report has been electronically sign ed by: _ Yifan Perez MD ? 07/08/2017 12 :25:18 Images reviewed and interpretation verif ied [facility] Cardiac Ultrasound Laboratory Procedure Note Yifan Perez MD - 07/08/2017Formatt ing of this note might be different from the original. Procedure: Transesophageal Echocardiogra m Patient: NATALYA MCBRIDE(Age): [birth year]72y) Med Rec#: [id number] Sex: M Site Loc: Ht / Wt: (cm)/ (kg) Pt. Loc: Study Date: 07/07/2017 Pt. Type: Tape: Referring: Yuan Retana Reading: Yifan Perez MD ([id number]) Performing: Yifan Perez MD ([id number]) Diagnosis: SUMMARY: 1. [facility] for the [...] Hypokinetic Mid-Posterolateral Hypokinetic Mid-Inferior Hypokinetic Mid-Inferoseptal Hypokinetic [place]-Septal Hypokinetic [place]-Anterior Hypokinetic [place]-Lateral Hypokinetic [place]-Inferior Hypokinetic [place]-Tip Not Seen This report has been electronically sign ed by: _ Yifan Perez MD 07/08/2017 12:25:18 Images reviewed and interpretation elvie hwang [facility] Cardiac Ultrasound Laboratory Unknown ECHO ORDERABLES documented in this encounter Visit Diagnoses Not on filedocumented in this encounter Care Teams Care Asst Relationship Specialty Start Date End Date Lovely Vicente MD PCP - General 04/16/[address] [place] [address] documented as of this encounter
--- OUTSIDE RECORDS SUMMARY | 2022-04-06 10:44 | XMS_ITS | Encounter Summary ---
:1945 Author Organization [facility] Address [facility] [place] [address] Care Team Providers Name Role Phone Lovely Vicente MD Primary Care Provider Reason for Visit Auth/Cert Specialty Diagnoses / Procedures Referred By Contact Refer red To Contact Diagnoses STEMI (ST elevation myocardial infarction) NSTEMI STEMI Procedures CARDIAC CATHETERIZATION NAYE IPI Referral ID Status Reason Start Date Expiration Date Visits Requ ested Visits Authorized [id number] 1 1 Encounter Details Date Type Department Care Team Description 07/07/2017 Surgery Main Operating Room Yuan Webber, @ CABG, USING ARTERIAL Barbara Ocampo MD GRAFT;SINGLE ARTERIAL Hospital [facility] GRAFT (WRVU 33.75) [facility] [address] [place] [address] SURGERY [phone] [place], [place] [address] (Wo rk) Social History Tobacco [...] in this encounter Discharge Summaries Martha Teague, SHEETMETAL PATTERNMAKER - 07/14/2017 9:38 AM EST Inpatient - Discharge Summary Patient Name: Gregory Hoang Patient Age: 72 y.o. Birthdate: 1945 Language: Portuguese Race: White Ethnicity: Not nor Admit Date: [...] , @ 1:20p Patient to follow-up with Area Field Worker/heart failure team in one week. An appointment will be made for you. You may call [phone] Patient to follow-up with Cardiac Surgery, Dr. Yuan Webber, in ~ 4 weeks with CXR, EKG. Inpatient Provider Contact Information: [facility] Section of Cardiac Surgery [facility] [address] FAX [phone] Discharge Diagnoses (Hospital Problems) Primary Diagnoses: CAD [...] by mouth daily. 90 tablet 3 07/05/2017 [id number] ??? ascorbic acid, vitamin C, (VITAMIN C) [...] Hospital Course: Gregory Hoang was admitted to [facility] on 07/05/2017 via the Cardiology Service. During his hospital course, he was taken emergently to the analytical laboratory technician for an ongoing STEMI. An [...] not take or discontinue any prescription or yrmx-lpy-hahslrr medications without asking your doctor or pharmacist [...] day to have your insulin doses adjusted. [facility] Endocrine clinic office Discharge Instructions: Call your doctor if: You have a fever of greater than 101 degrees, shaking chills, if you develop redness or drainage from your incision sites, or if you have questions. Please call your surgeon's office if you have any discharge or drainage from your chest incision. Your surgeon, Dr. Yuan Webber and/or the Cardiac Surgery Physician Paper Cone Machine Tender Team may be reached at . Weight: [...] Dr. Yuan Webber. You may use a [place] Track or treadmill but avoid any pulling [...] friends, go to a movie, go to religion, etc. Heavy activities: No hunting, skiing, jogging, snow shoveling, snowmobiling, lawn mowing, swimming, golf or tennis until after your return appointment with the surgeon. Do not ride motorcycles, [employer]'s tractors or horses. Avoid the use of [...] , @ 1:20p Patient to follow-up with Area Field Worker/heart failure team in one week. Appointment will be made for you. You may call [phone] Patient to follow-up with Cardiac Surgery, Dr. Yuan Webber, in ~ 4 weeks with CXR, EKG. Cardiac Rehabilitation: rGegory Hoang was seen today regarding participation in [...] THREE L Lab 3L [facility] [phone] 09/07/2017 4:00 PM Luz Prescott MD [facility]ocrin[facility] at [facility] [phone] Future Orders Complete By Expires EKG 12 Lead [EKG1 Custom] 08/14/2017 02/13/2018 Process Instructions: Scheduling Instructions: Questions: Which DH location will this be performed?: [facility] Is a rhythm strip needed?: No If EKG Reason is Pre-op Evaluation, indicate diagnosis for surgery.: XR Chest PA & Lateral (Generic) [[id number] Custom] 08/14/2017 02/13/2018 Process Instructions: Scheduling Instructions: Questions: Where will study be performed?: [facility] Portable exam?: Reason for exam and clinical history: CABG x 3 Other pertinent information: Stat read required?: Date of injury if applicable: Requested Time: Referral to Cardiac Rehab [LSU894 Custom] As directed Process Instructions: If no progress note charted, please enter Clinical details in comments. Scheduling Instructions: Questions: My question or request is: s/p CABG. Cardiac rehab at [facility] Referral to Home Health - at DISCHARGE [STY2359 CPT(R)] As directed Process Instructions: Scheduling Instructions: Comments: DOCUMENTATION FOR VNA SERVICES (INCLUDING THOSE PATIENTS WITH MEDICARE COVERAGE REQUIRING HOME VNA SERVICES AND/OR HOSPICE SERVICES) PATIENT'S LOCATION: Gregory Hoang [address] [place] [address] [place] [id number] (home) Telephone Information: Team Driver's Name: self In discussion with the attending physician, it is certified that this patient is under their care and that they, or a Nurse Practitioner, or Physician Paper Cone Machine Tender who is working directly with them, had [...] M[facility] ([facility] [place] [employer]-is in [place] PHONE: [phone] FAX: [phone] RN orders: Cardiopulmonary assessment, incisional assessment, assess vital signs, assessment of rehab progress, medication management and effectiveness, home safety evaluation. Please draw INR if indicated and send result to:Dr Vicente [phone] PT ORDERS: Continue rehab for endurance, gait stability and strength with mobility and transfers. Home safety evaluation. Home exercise program if appropriate. Start of Care Date:24-48 hours after discharge SPECIAL INSTRUCTIONS: For any follow up questions, needs, or issues please call the Cardiac Surgery Office at [phone] FOR MEDICARE ONLY: (please delete this section [...] Agency name and contact information: [facility] Patient location post discharge: home What services are requested: Registered Nurse Physical Therapy Start date: Responsible MD post discharge contact info: PCP Arrangements for VNA/home care: As above. VN RN OR PCP TO PLEASE REMOVE CHEST TUBE SUTURES ON OR AFTER 07/17/2017 Signed: Martha Teague APRN [facility] Section of Cardiac Surgery [facility] [address] FAX [phone] Date: 07/14/2017 CC: MD Ivania Cr Betsy, PA [address] [place] [phone] documented in this encounter Discharge Instructions Discharge [...] day to have your insulin doses adjusted. [facility] Endocrine clinic office Patient InstructionsStMartha mcdonald [...] not take or discontinue any prescription or dmjl-dnw-hhgnxho medications without asking your doctor or pharmacist [...] day to have your insulin doses adjusted. [facility] Endocrine clinic office ? Discharge Instructions: [...] Yuan Webber and/or the Cardiac Surgery Physician Paper Cone Machine Tender Team may be reached at . ?? [...] Dr. Yuan Webber. You may use a [place] Track or treadmill but avoid any pulling [...] friends, go to a movie, go to religion, etc. ?? Heavy activities: No hunting, skiing, jogging, snow shoveling, snowmobiling, lawn mowing, swimming, golf or tennis until after your return appointment with the surgeon. Do not ride motorcycles, [employer]'s tractors or horses. Avoid the use of [...] @ 1:20p ?? Patient to follow-up with Area Field Worker/heart failure team in one week. An appointment has been made for you, you can call [phone] ?? Patient to follow-up with Cardiac Surgery, [...] THREE L Lab 3L [facility] [phone] ?? 09/07/2017 4:00 PM Luz Prescott MD [facility]ocrinology at [facility] [phone] Future Orders Complete By Expires ?? EKG 12 Lead [EKG1 Custom] 08/14/2017 02/13/2018 ?? Process Instructions: ? Scheduling Instructions: ? Questions: ? Which location will this be performed?: [facility] ?? Is a rhythm strip needed?: No ?? If EKG Reason is Pre-op Evaluation, indicate diagnosis for surgery.: ?? XR Chest PA & Lateral (Generic) [[id number] Custom] 08/14/2017 02/13/2018 ?? Process Instructions: ? Scheduling Instructions: ? Questions: ? Where will study be performed?: [facility] ?? Portable exam?: ?? Reason for exam and clinical history: CABG x 3 ?? Other pertinent information: ?? Stat read required?: ?? Date of injury if applicable: ?? Requested Time: ?? Referral to Cardiac Rehab [SKL014 Custom] As directed ? Process Instructions: ?? [...] RN - 07/14/2017 2:34 PM EST The patient/outside dealer sales representative has been provided a list of Home Health Agencies/DME vendors which serve their preferred geographic area. A letter describing our affiliations was reviewed with them and theywere educated about their right to choose where referrals are placed. Patient requests referral to [facility] [employer]. PHONE: [phone] FAX: [phone] Expected date of discharge: 07/14 Referral routed to the Sander Hand for matching with agency/vendor and to provide [...] day to have your insulin doses adjusted. [facility] Endocrine clinic office Kathie Carrera APRN [facility] Endocrinology Diabetes Management Pager [phone] minutes of this 35 minute visit was spent with the patient in counseling on diabetes and treatment plan, reviewing all glucose and insulin data as well as relevant laboratory results with the patient, and coordination of care on the inpatient unit including nursing and primary team. Zulma Power RN - 07/14/2017 10:30 AM EST The patient/outside dealer sales representative has been provided a list of Home Health Agencies/DME vendors which serve their preferred geographic area. A letter describing our affiliations was reviewed with them and theywere educated about their right to choose where referrals are placed. Patient requests referral to : Yasmani Munguia ([facility] [place] [facility]-is in [place] PHONE: [phone] FAX: [phone]. Expected date of discharge: 07/14/17 Referral routed to the Sander Hand for matching with agency/vendor and to provide [...] Will continue to follow Katerin Azul APRN [facility] Endocrinology Diabetes Management Pager [phone] minutes of this 25 minute visit [...] of infiltration/extravasation Discussed plan of care with FLAT GRINDER OPERATOR and RN. Elevate exrtemity and apply [...] measuring tape and identifier in the photo) LIQUEFACTION AND REGASIFICATION HELPER CARING FOR THIS PATIENT WILL CONTINUE TO [...] measuring tape and identifier in the photo) LIQUEFACTION AND REGASIFICATION HELPER CARING FOR THIS PATIENT WILL CONTINUE TO [...] regard to both infiltrates addressed by this newswriter.All of MrMadiha Hoang's responses were entirely appropriate. Images of infiltrates attached here. L Martha Teague, SHEETMETAL PATTERNMAKER - 07/13/2017 8:01 AM EST Cardiac Surgery Progress Note: ID: [id number] 72 year old male POD#6 s/p CABGx3 [...] discharge. ?? I have met with the patient/outside dealer sales representative to discuss discharge planning needs. I have provided the [facility], Office of Care Management letter from the House Furnishings Supervisor pertaining to rehab referrals. I have also provided a letter describing our affiliations within the [facility] and educated them about their right to choose where referrals are placed. ?? I reviewed the different levels of rehab including SNF, swing, acute and LTAC with the patient/outside dealer sales representative. ?? The patient/outside dealer sales representative has been provided a list of facilities within their preferred geographic area. ?? I have requested that the patient/outside dealer sales representative provide at least three choices for referral. ?? The patient/outside dealer sales representative have requested referrals to: ?? [facility]. [facility] ?? 2. [facility] ?? 3. More to be entered ?? Expected date of discharge: 07/14 Note routed to Sander Hand who will communicate referrals to facilities and [...] hours. If BG remains greater than 240, zwnzpi11 units (no more than three times) & [...] hours. If BG remains greater than 240, ghvebn97 units (no more than three times) & call for new basal insulin orders. ??If less than 240 after two hours, give no insulin and resume prior schedule. Will continue to follow Katerin Azul APRN [facility] Endocrinology Diabetes Management Pager [phone] minutes of this 35 minute visit was spent with the patient in counseling on diabetes and treatment plan, reviewing all glucose and insulin data as well as relevant laboratory results with the patient, and coordination of care on the inpatient unit including nursing and primary team. Makayla Stevenson APRN - 07/12/2017 9:52 AM EST Cardiac Surgery Progress Note: ID: [id number] 72 year old male POD#5 s/p CABGx3 [...] 07/11/2017 7:18 PM EST Patient arrived from [facility]. VSS. MSI dressing pulled off [...] AM EST Cardiac Surgery Progress Note: ID: [id number] 72 year old male POD#4 s/p CABGx3 [...] hours. If BG remains greater than 240, pukwsi80 units (no more than three times) & [...] AM EST Cardiac Surgery Progress Note: ID: [id number] 72 year old male POD#3 s/p CABGx3 [...] Gas) No results found for: PHART, PO2ART, GPS9FQX Assessment/Plan: 72 year old male POD#3 s/p [...] Mami Thao - 07/09/2017 6:29 PM EST Orthotist Encounter Note Patient Name: Gregory Hoang : [id number] MR#: [id number] Admit Date: 07/05/2017 4:20 PM Hospital Day 4 days Narrative: Patient was sitting in chair, hugging heart pillow, opened his eyes, nodding to come into room Assessment: Patient was sleepy. Intervention and Outcome: Introduced automotive instructor services and patient reached his hand out in appreciation. Follow-up: Orthotist remains available for support. Time in Direct Care: 5 min. Mami Thao 07/09/2017 Nick Wadsworth MD - 07/09/2017 1:35 PM EST STAFF PROGRESS NOTE Critical Care Medicine Author: NCIK SEGAL MD Patient seen and examined on [...] 07/09/2017 10:45 AM EST Report given to set staff fitter to cover care Maddison Cee PA - 07/09/2017 9:00 AM EST Cardiac Surgery Progress Note: ID: [id number] 72 year old male POD#2 s/p CABGx3 [...] completed shifts: In: 7977.4 [I.V.:7477.4; Other:500] Out: 6125 [Urine:3000; Other:615] I- 4 L O- 2.7 [...] Attending Surgeon on rounds. Signed: STEPHANIE Iqbal [facility] Section of Cardiac [...] when IABP d/c'ed. Gretchen Carolina, PT Pager [phone] Maddison Cee PA - 07/08/2017 11:27 AM EST Cardiac Surgery Progress Note: ID: [id number] 72 year old male POD#1 s/p CABGx3 [...] Attending Surgeon on rounds. Signed: STEPHANIE Iqbal [facility] Section of Cardiac [...] in place in R femoral. No hematoma. TELEPHONE SUPERVISOR- Intact Psych- Anxious Skin- Dry, no [...] intact. IABP in place in R femoral. TELEPHONE SUPERVISOR- Intact Psych- Anxious Skin- Dry, no [...] pending CABG - hold metformin - f/u [facility] ?? #Home Meds - continue levothyroxine [...] note for details. DAPHNE SHAHID MD Pager [phone] Jet Mckenna MD - 07/05/2017 6:48 PM EST Preliminary Cardiac Catheterization Procedure Note: Procedure(s) performed: Left heart cath, IABP insertion Access: Right CONTINUOUS STILL OPERATOR-->8fr IABP A time-out was conducted prior [...] effect. Heparin gtt maintained. Pt transferred to analytical laboratory technician. documented in this encounter H&P Notes Daphne Shahid MD - 07/05/2017 6:08 PM EST CARDIOLOGY HISTORY & PHYSICAL EXAM Date of Admission: 07/05/2017 ( Hospital Day 0 days ) Responsible Attending: Daphne Shahid MD PCP: Lovely Vicente MD PCP#: [phone] Patient Active Problem List Diagnosis Code ??? [...] load with heparin drip and transferred to [facility]. While there, continued sob, question of chest pain. Stat TTE showing WMA diffusely and EF around 20%. No significant valvular disease. Taken to the analytical laboratory technician urgently for ongoing STEMI. [facility] Labs: [...] monitor I/O - s/p lasix in the analytical laboratory technician, redose to aim net neg [...] Medicine, PGY-2 Cardiology S1, Team Pager # [phone] CARDIOLOGY ATTENDING NOTE Patient: Gregory Hoang Date [...] amenable for PCI. DAPHNE SHAHID MD Pager [phone] documented in this encounter Miscellaneous Notes Consult Note - Daphne Shahid MD - 07/14/2017 11:46 AM EST Heart Failure Service Inpatient Consult Note Gregory Hoang Date of : 1945 Age: 72 y.o. Today's date: 07/14/17 PCP: Lovely Vicente MD INVESTIGATION MANAGER: None Place of Service: C451-A Reason for [...] at [facility] MAIN OR Outpt Meds: Current [...] following studies: EKG 07/14/17: NSR 75 bpm, SEED ANALYSIS LABORATORY ASSISTANT anterior infarct, LAD CXR 07/11/17: FINDINGS: Sternotomy wires. The patient has been extubated, left chest tube removed, and Strawberry-Suzi catheter removed since the 07/07/2017 study. Atelectasis [...] was discussed with Zehra. Jaden Kelley MD Bi Application Developer Pager [phone] CARDIOLOGY ATTENDING NOTE Patient: Gregory Hoang Date [...] heart failure clinic. DAPHNE SHAHID MD Pager [phone] Plan of Care - Alden Chavarria, FACTORY PROCESS WORKERS - 07/14/2017 11:35 AM EST Problem: Patient [...] Disposition: home with assist Alden Jorge Genikevin, FACTORY PROCESS WORKERS Pager: [phone] Inpatient Physical Therapy Problem: Acute Rehab Services [...] sit/sit to supine -- Bed Mobility Goal, [place] Level supervision required -- Bed Mobility Goal, [...] - 3 days -- Gait Training Goal, [place] Level supervision required -- Gait Training Goal, [...] days -- Transfer Training Goal, Activity Type bbw-aq-wafin/vnybb-xc-wqw;uzn-vp-nkaio/ydlhz-gn-cle;toilet -- Transfer Train Goal, [place] Level supervision required -- Transfer Training Goal, [...] keeping present for 2 days per family. Cell Phone Repair Technician noted of frustrations, house keeping sent to room. Patient offered showered twice, refused. at bedside, frustrated that shower not complete, informed that patient had refused several times. requesting to see DIRECTOR CREDIT RISK, paged sent to Martha, will come to bedside (middle of consult). not willing to wait, Martha notified that family had gone home. Encouraged to come for morning rounds a t 8am. Diabetes team at bedside - insulin adjustments made. Call cabello in reach. Continue to monitor. PLAN MOVING FORWARD: Ambulate, dressing changes BID, Please change drsg at 4am per Martha DIRECTOR CREDIT RISK request. INDIVIDUALIZED FALL PREVENTION INTERVENTIONS: Patient-specific fall [...] levels on the lower side, 60ml of [place] juice given after a FS of 80. [...] Anticipated Discharge Disposition: home with assist Pager: [phone] CLARISSA SEGAL, PT 07/12/2017 Physical Therapy Rehabilitation [...] to sit/sit to supine Bed Mobility Goal, [place] Level supervision required Bed Mobility Goal, Additional Goal adheres to psternal precautions for transfer Goal: Gait Training Goal Stand Alone Therapy Goal Outcome: Ongoing (Interventions Implemented as Appropriate) 07/12/17 1225 Gait Training Goal Gait Training Goal, Date Established 07/12/17 Gait Training Goal, Time to Achieve 2 - 3 days Gait Training Goal, [place] Level supervision required Gait Training Goal, Assist [...] 3 days Transfer Training Goal, Activity Type lca-do-vaemc/yhkdn-yb-zbw;vna-qv-txytu/crauh-xz-xux;toilet Transfer Train Goal, [place] Level supervision required Transfer Training Goal, Additional Goal adheres to sternal precautions during transfer Consult Note - Octavia Vaughn RN - 07/12/2017 10:50 AM EST [facility] CARDIAC REHABILITATION Gregory Hoang was seen [...] IV site, amio to other piv and ENGINEERING DOCUMENTATION SPECIALIST at bedside to help assess, IV [...] staff, he stood and marched in place. [place] weak, wanting to sit back down. Remained [...] Health/Prescription Coverage: Primary Insurance: MEDICARE Secondary Insurance: [employer] [place] Prescription Coverage: yes Preferred Pharmacy: [facility] [place] Other: none Primary Care Provider: Lovely Vicente MD [phone] Patient/Caregiver Goals of Treatment:live and get my breath back Potential Needs for Transition of Care: Rehab/SNF: [facility] Home Health: NA DME: TBD Dialysis: na Community Resources: available Transportation: yes Other: none Anticipated Barriers to Discharge/Special Considerations: none Plan: Likely SNF Rehab before home A member of the Care Management team will continue to monitor progress, follow for continuity of care and assist with transition of care planning. ERLIN Weiss Pager: [phone] Consult Note - Katerin Azul RN - [...] and to provide a review of intermediate school teacher diabetes care. Diabetes History: Gregory Hoang has [...] Katerin Azul APRN Endocrinology Diabetes Management Pager [phone] Plan of Care - Walt Stephanie Wyatt [...] Webber MD - 07/07/2017 6:27 PM EST [facility] Operative Note Patient Name: Gregory Hoang : [id number] MR#: [id number] Case Date: 07/07/2017 Surgeon: Surgeon(s) and Role: * Yuan Webber MD - Primary * Michael Drake PA - Physician Paper Cone Machine Tender * Linda Flores PA - Physician Paper Cone Machine Tender Preoperative diagnosis: 3VD Postoperative diagnosis: CAD, severe [...] Operative Note Patient Name: Gregory Hoang : [id number] MR#: [id number] Case Date: 07/07/2017 Surgeon: Surgeon(s) and Role: * Yuan Webber MD - Primary * Michael Drake PA - Physician Paper Cone Machine Tender * Linda Flores PA - Physician Paper Cone Machine Tender Preoperative diagnosis: 3VD Postoperative diagnosis: CAD, severe [...] code status: Full Code Katty Hahn, MS3 [facility] Cardiology S1 (Pager [phone]) Plan of Care - Emelia Ibarra RN [...] with other involved physicians Yuan Webber MD [phone] Med Student Progress Note - Katty Hahn [...] or BiPAP - s/p lasix in the analytical laboratory technician, was net -1.5L - s/p [...] [facility] Cardiology S1 (Pager [phone]) Plan of Care - Stephanie Godoy RN - 07/06/2017 5:00 AM EST Problem: Patient Care Overview Goal: Plan of Care Review 07/06/17 3826 Coping/Psychosocial Plan Of Care Reviewed With patient;family [...] in urinal without difficulty. Lasix given in analytical laboratory technician, 1.4 L out at this [...] Dolan MD [facility] [place] [address] (Wo rk) 05/28/2022 Laboratory Appointment Lab 05/28/2022 Office Visit Cardiology Zulma Dolan MD [facility] [place] [address] Liz Poole PA [facility] [place] [address] 06/10/2022 Office Visit Dermatology Laura Scherer MD [facility] [address] [place], [place] [address] (Wo rk) Scheduled Orders Name [...] procedure are i n the results section. GROUP BILLING COORDINATOR SCAN 07/15/2017 12:00 Res ults for this [...] Routine 07/08/2017 4:00 Results f or this ([facility]) AM EST procedure are i n [...] Yes 07/07/2017 1:35 CAD & ARTERIAL [facility]RAFT [facility] 7.93) @CABG, USING ARTERIAL Yes [...] Routine 07/06/2017 7:40 Results f or this ([facility]) PM EST procedure are i n [...] Timed 07/06/2017 2:10 Results f or this ([facility]) PM EST procedure are i n [...] section. TYPE AND SCREEN Routine 07/06/2017 12:00 ([facility]P/SHANDA) PM EST APTT STAT 07/06/2017 11:24 [...] Routine 07/06/2017 8:10 Results f or this ([facility]) AM EST procedure are i n [...] Routine 07/06/2017 2:20 Results f or this ([facility]) AM EST procedure are i n [...] Routine 07/05/2017 8:20 Results f or this ([facility]) PM EST procedure [...] Timed 07/05/2017 4:55 Results f or this ([facility] [place]) PM EST procedure [...] 2017 EXAMINATION: XR CHEST PA AND LATERAL (viavoo NERIC) CLINICAL HISTORY: CABG x 3 TECHNIQUE: [...] Teague APRN IMG DX ORDERABLES SCAN DOC: GROUP BILLING COORDINATOR (07/15/2017 12:00 AM EST) Narrative 07/15/2017 12:00 [...] 186 65 - 199 [facility] mg/dL [facility] Comment: Supplemental [...] Address City/State/ZIP Code Phon e Number [address] POCT Glucose (07/14/2017 7:52 AM EST) athologist Signature POC Glucose 126 65 - 199 [facility] mg/dL [facility] Comment: [...] Address City/State/ZIP Code Phon e Number [address] (ABNORMAL) Prothrombin Time (07/14/2017 [...] Address City/State/ZIP Code Phon e Number [address] Potassium (07/14/2017 4:46 AM EST) athologist Signature Potassium 4.3 3.5 - 5.0 [facility] mmol/L [facility] Comment: [...] Address City/State/ZIP Code Phon e Number [address] POCT Glucose (07/14/2017 4:34 AM EST) athologist Signature POC Glucose 115 65 - 199 [facility] Comment: Supplemental [...] City/[facility]/ZIP Code Phon e Number [address] POCT Glucose (07/13/2017 11:33 PM EST) athologist Signature POC Glucose 132 65 - 199 [facility] mg/dL [facility] Comment: Supplemental [...] City/[facility]/ZIP Code Phon e Number [address] POCT Glucose (07/13/2017 9:25 PM EST) athologist Signature POC Glucose 121 65 - 199 [facility]dL [facility] Comment: Supplemental [...] Address City/State/ZIP Code Phon e Number [address] POCT Glucose (07/13/2017 4:55 PM EST) P athologist Signature POC Glucose 79 65 - 199 [facility] mg/dL [facility] Comment: [...] Address City/State/ZIP Code Phon e Number [address] POCT Glucose (07/13/2017 11:16 AM EST) athologist Signature POC Glucose 163 65 - 199 [place] mg/dL [facility] Comment: Supplemental [...] Address City/State/ZIP Code Phon e Number [address] POCT Glucose (07/13/2017 8:07 [...] City/[facility]/ZIP [place] [address] (ABNORMAL) Prothrombin Time (07/13/2017 [...] Wilson APRN HEMATOLOGY ORDERABLES Performing Organization Address City/[facility]/ZIP [place] [address] (ABNORMAL) Basic Metabolic Panel (non-fasting) (07/13/2017 4:26 AM EST) P athologist Signature Glucose Lvl 95 65 - 199 [facility] mg/dL [facility] Comment: [...] [facility] Estimated GFR 60 >=60 [facility] Comment: The reported eGFR should be multiplied b y 1.2 for patients. The MDRD is not an appropriate measure o f renal function for patients with body mass extremes or in patients with acute kidney failure. [email or web address] Specimen Anatomical Collection Method Collection Time Receive d Time (Source) Location / / Volume Laterality Blood specimen 07/13/2017 4:26 AM 017 4:46 (specimen) EST AM EST Resulting Agency Comment Spec In Lab Makayla Wilson APRN CHEMISTRY ORDERABLES Performing Organization Address City/[facility]/ZIP Code Phon e Number [address] POCT Glucose (07/13/2017 3:52 AM EST) P athologist Signature POC Glucose 93 65 - 199 [facility] mg/dL [facility] Comment: [...] Address City/State/ZIP Code Phon e Number [address] POCT Glucose (07/13/2017 12:21 AM EST) athologist Signature POC Glucose 80 65 - 199 [facility] mg/dL [facility] Comment: Supplemental [...] Address City/State/ZIP Code Phon e Number [address] POCT Glucose (07/12/2017 8:22 PM EST) athologist Signature POC Glucose 119 65 - 199 [facility] mg/dL [facility] Comment: Supplemental [...] Address City/State/ZIP Code Phon e Number [address] POCT Glucose (07/12/2017 4:02 PM EST) athologist Signature POC Glucose 114 65 - 199 [facility] mg/dL [facility] Comment: Supplemental [...] Address City/State/ZIP [place] [address] POCT Glucose (07/12/2017 11:28 AM EST) athologist Signature POC Glucose 164 65 - 199 [facility] mg[facility]dL [facility] Comment: Supplemental [...] Address City/State/ZIP Code Phon e Number [address] POCT Glucose (07/12/2017 7:34 AM EST) athologist Signature POC Glucose 109 65 - 199 [facility] mg[facility]dL [facility] Comment: Supplemental [...] Address City/State/ZIP [place] [address] (ABNORMAL) Basic Metabolic Panel (non-fasting) (07/12/2017 4:11 AM EST) athologist Signature Glucose Lvl 92 65 - 199 [facility] mg/dL [facility] Comment: Diabetes: [...] or in patients with acute kidney failure. [email or web address] [email or web address] Specimen Anatomical Collection Method Collection Time Receive d Time (Source) Location / / Volume Laterality Blood specimen 07/12/2017 4:11 AM 017 8:57 (specimen) EST AM EST Resulting Agency Comment Spec In Lab Makayla Katie QUINONES CHEMISTRY ORDERABLES Performing Organization Address City/State/[place] [address] (ABNORMAL) Prothrombin Time (07/12/2017 [...] Wilson APRN HEMATOLOGY ORDERABLES Performing Organization Address City/[facility]/ZIP [place] [address] Potassium (07/12/2017 4:11 AM EST) athologist Signature Potassium 3.8 3.5 - 5.0 [facility] mmol/L [facility] Comment: [...] Wilson APRN CHEMISTRY ORDERABLES Performing Organization Address City/[facility]/ZIP [place] [address] POCT Glucose (07/12/2017 4:10 AM EST) athologist Signature POC Glucose 90 65 - 199 [facility] Comment: [...] City/[facility]/ZIP [place] [address] POCT Glucose (07/11/2017 11:57 PM EST) athologist Signature POC Glucose 98 65 - 199 [facility] Comment: [...] Address City/State/ZIP [place] [address] POCT Glucose (07/11/2017 8:32 PM EST) P athologist Signature POC Glucose 146 65 - 199 [facility] mg/dL [facility] Comment: [...] Address City/State/ZIP [place] [address] XR Chest PA & [...] e xtubated, left chest tube removed, and Strawberry-Suzi catheter removed since the study. Atelectasis at [...] e xtubated, left chest tube removed, and Strawberry-Suzi catheter removed since the study. Atelectasis at [...] Glucose 223 (H) 65 - 199 [facility] mg/dL [facility] Comment: Supplemental [...] City/[facility]/ZIP Code Phon e Number [address] POCT Glucose (07/11/2017 11:55 AM EST) athologist Signature POC Glucose 176 65 - 199 [facility] mg/dL [facility] Comment: Supplemental [...] City/[facility]/ZIP [place] [address] POCT Glucose (07/11/2017 7:53 AM EST) athologist Signature POC Glucose 189 65 - 199 [facility] Comment: [...] City/[facility]/ZIP Code Phon e Number [address] POCT Glucose (07/11/2017 4:22 AM EST) athologist Signature POC Glucose 151 65 - 199 [facility] Comment: [...] City/[facility]/ZIP Code Phon e Number [address] Potassium (07/11/2017 2:20 AM EST) athologist Signature Potassium 4.5 3.5 - 5.0 [facility] mmol/L [facility] Comment: [...] Webber MD CHEMISTRY ORDERABLES Performing Organization Address City/[facility]/ZIP Code Phon e Number [address] POCT Glucose (07/11/2017 12:17 AM EST) athologist Signature POC Glucose 162 65 - 199 [facility] mg/dL [facility] Comment: Supplemental ranges: <140 mg/dL before meals <180 mg/dL all other times of the day Specimen Anatomical Collection Method Collection Time Receive d Time (Source) Location / / Volume Laterality Blood specimen 07/11/2017 12:17 7 (specimen) AM EST 12:17 AM EST Yuan Webber MD POINT OF CARE TEST ORDERABLE S Performing Organization Address [facility]/ZIP Code Phon e Number [address] POCT Glucose (07/10/2017 8:47 PM EST) athologist Signature POC Glucose 191 65 - 199 [facility] mg/dL [facility] Comment: Supplemental [...] City/[facility]/ZIP Code Phon e [place] [address] POCT Glucose (07/10/2017 4:06 PM EST) athologist Signature POC Glucose 131 65 - 199 [facility] mg/dL [facility] Comment: Supplemental [...] Address City/State/ZIP Code Phon e Number [address] POCT Glucose (07/10/2017 3:08 PM EST) athologist Signature POC Glucose 151 65 - 199 [facility] mg[facility]dL [facility] Comment: Supplemental [...] Address City/State/ZIP Code Phon e Number [address] POCT Glucose (07/10/2017 2:25 PM EST) athologist Signature POC Glucose 146 65 - 199 [facility] mg/dL [facility] Comment: Supplemental [...] Address City/State/ZIP Code Phon e Number [address] POCT Glucose (07/10/2017 1:23 PM EST) athologist Signature POC Glucose 166 65 - 199 [facility] mg/dL [facility] Comment: Supplemental [...] Address City/State/ZIP Code Phon e Number [address] POCT Glucose (07/10/2017 11:52 AM EST) P athologist Signature POC Glucose 157 65 - 199 [facility] mg/dL [facility] Comment: Supplemental [...] Address City/State/ZIP Code Phon e Number [address] POCT Glucose (07/10/2017 11:01 AM EST) athologist Signature POC Glucose 158 65 - 199 [facility] mg/dL [facility] Comment: Supplemental [...] Address City/State/ZIP Code Phon e Number [address] POCT Glucose (07/10/2017 9:54 AM EST) athologist Signature POC Glucose 160 65 - 199 [facility] mg/dL [facility] Comment: Supplemental [...] Address City/State/ZIP [place] [address] POCT Glucose (07/10/2017 8:58 AM EST) athologist Signature POC Glucose 183 65 - 199 [facility] mg/dL [facility] Comment: [...] Address City/State/ZIP Code Phon e Number [address] POCT Glucose (07/10/2017 8:01 AM EST) athologist Signature POC Glucose 173 65 - 199 [facility] mg/dL [facility] Comment: Supplemental [...] Address City/State/ZIP Code Phon e Number [address] POCT Glucose (07/10/2017 7:05 AM EST) athologist Signature POC Glucose 166 65 - 199 [facility] mg/dL [facility] Comment: Supplemental [...] Address City/State/ZIP Code Phon e Number [address] POCT Glucose (07/10/2017 6:00 AM EST) P athologist Signature POC Glucose 162 65 - 199 [facility] mg/dL [facility] Comment: [...] Organization Address City/State/[place] [address] (ABNORMAL) Differential, Automated (07/10/2017 4:28 AM EST) Patholo gist Method Time Signature Neutrophils % 87.9 % [facility] Neutr Abs (ANC) 10.70 (H) 1.70 - [facility] 6.10 [facility] x10(3)/[facility] LABORATORY Lymphocytes % 3.9 % [facility] Lymphocytes Abs 0.5 (L) 0.9 - 3.2 [facility] x10(3)/[facility] LABORATORY Monocytes % 7.0 % [facility] Monocyte Abs 0.8 0.3 - 0.9 [facility] x10(3)/[facility] LABORATORY Eosinophils % 0.3 % [facility] Eosinophils Abs 0.0 0.0 - 0.4 [facility] x10(3)/[facility] LABORATORY Basophils % 0.2 % [facility] Basophils Abs 0.0 0.0 - 0.1 [facility] x10(3)/[facility] LABORATORY Immature Gran % 0.70 % [facility] [...] Organization Address City/State/[place] [address] (ABNORMAL) Hemogram (07/10/2017 4:28 AM EST) Analysis Performed At Patho logist Time Signature WBC 12.2 (H) 4.0 - 9.5 [facility] x10(3)/[facility] LABORATORY RBC 3.31 (L) 4.58 - [facility] 5.54 [facility] x10(6)/[facility] LABORATORY Hemoglobin 9.8 (L) 13.7 - [facility] 16.5 gm/dL [facility] Hematocrit 30.0 (L) 40.5 - [facility] 48.5 % [facility] MCV 90.6 82.9 - [facility] 93.1 [facility]ORY MCH 29.6 27.5 - [facility] 32.1 pg [facility] MCHC 32.7 32.0 - [facility] 35.7 gm/dL [facility] Platelets 135 (L) 145 - 357 [facility] x10(3)/[facility] LABORATORY RDWSD 50.8 (H) 36.0 - [facility] 45.0 [facility] LAB[facility]ATORY RDWCV 15.4 (H) 11.4 - [facility] 13.8 % [facility] MPV 10.0 7.6 - 12.9 [facility] LABORATORY nRBC % Auto 0.0 % [facility] nRBC Abs Auto 0.000 0.000 - [facility] 0.000 [facility] x10(3)/[facility] LABORATORY Specimen Anatomical Collection Method Collection Time Receive d Time (Source) Location / / Volume Laterality Blood specimen 07/10/2017 4:28 AM 017 4:36 (specimen) EST AM EST Resulting Agency Comment Spec In Lab Yuan Webber MD HEMATOLOGY ORDERABLES Performing Organization Address City/[facility]/[place] [address] (ABNORMAL) Basic Metabolic Panel (non-fasting) (07/10/2017 4:28 AM EST) P athologist Signature Glucose Lvl 178 65 - 199 [facility] mg/dL [facility] Comment: [...] [facility] Estimated GFR 60 >=60 [facility] Comment: The reported eGFR should be multiplied b y 1.2 for patients. The MDRD is not an appropriate measure o f renal function for patients with body mass extremes or in patients with acute kidney failure. [email or web address] Specimen Anatomical Collection Method Collection Time Receive d Time (Source) Location / / Volume Laterality Blood specimen 07/10/2017 4:28 AM 017 4:36 (specimen) EST AM EST Resulting Agency Comment Spec In Lab Yuan Webber MD CHEMISTRY ORDERABLES Performing Organization Address City/[facility]/ZIP [place] [address] POCT Glucose (07/10/2017 4:26 AM EST) P athologist Signature POC Glucose 176 65 - 199 [facility] mg/dL [facility] Comment: Supplemental [...] Address City/State/ZIP [place] [address] (ABNORMAL) POCT Glucose (07/10/2017 3:06 AM EST) athologist Signature POC Glucose 204 (H) 65 - 199 [facility] mg/dL [facility] Comment: Supplemental [...] City/State/ZIP Code Phon e Number [place] [address] (ABNORMAL) POCT Glucose (07/10/2017 2:10 AM EST) P athologist Signature POC Glucose 203 (H) 65 - 199 [facility] mg/dL [facility] Comment: [...] Address City/State/ZIP Code Phon e Number [address] POCT Glucose (07/10/2017 1:09 AM EST) P athologist Signature POC Glucose 196 65 - 199 [facility] mg/dL [facility] Comment: Supplemental [...] Address City/State/ZIP Code Phon e Number [address] POCT Glucose (07/10/2017 12:10 AM EST) athologist Signature POC Glucose 173 65 - 199 [facility] mg/dL [facility] Comment: Supplemental [...] Address City/State/ZIP Code Phon e Number [address] POCT Glucose (07/09/2017 11:01 PM EST) athologist Signature POC Glucose 140 65 - 199 [facility] mg/dL [facility] Comment: Supplemental [...] Address City/State/ZIP Code Phon e Number [address] POCT Glucose (07/09/2017 10:05 PM EST) athologist Signature POC Glucose 144 65 - 199 [facility] mg/dL [facility] Comment: Supplemental [...] Address City/State/ZIP Code Phon e Number [address] POCT Glucose (07/09/2017 9:31 PM EST) athologist Signature POC Glucose 121 65 - 199 [facility] mg/dL [facility] Comment: Supplemental [...] Address City/State/ZIP Code Phon e Number [address] POCT Glucose (07/09/2017 9:03 PM EST) athologist Signature POC Glucose 98 65 - 199 [facility] mg/dL [facility] Comment: Supplemental [...] Address City/State/ZIP [place] [address] POCT Glucose (07/09/2017 8:09 PM EST) athologist Signature POC Glucose 117 65 - 199 [facility] mg/dL [facility] Comment: Supplemental [...] Address City/State/ZIP Code Phon e Number [address] POCT Glucose (07/09/2017 5:40 PM EST) athologist Signature POC Glucose 155 65 - 199 [facility] mg/dL [facility] Comment: Supplemental [...] Address City/State/ZIP Code Phon e Number [address] POCT Glucose (07/09/2017 4:24 PM EST) athologist Signature POC Glucose 164 65 - 199 [facility] mg/dL [facility] Comment: Supplemental [...] Address City/State/ZIP Code Phon e Number [address] POCT Glucose (07/09/2017 3:19 PM EST) athologist Signature POC Glucose 166 65 - 199 [facility] mg/dL [facility] Comment: Supplemental [...] Address City/State/ZIP Code Phon e Number [address] POCT Glucose (07/09/2017 2:26 PM EST) athologist Signature POC Glucose 179 65 - 199 [facility] mg/dL [facility] Comment: Supplemental [...] Address City/State/ZIP [place] [address] (ABNORMAL) POCT Glucose (07/09/2017 1:29 PM EST) athologist Signature POC Glucose 210 (H) 65 - 199 [facility]dL [facility] Comment: Supplemental [...] Address City/State/ZIP [place] [address] POCT Glucose (07/09/2017 12:20 PM EST) P athologist Signature POC Glucose 172 65 - 199 [facility] mg/dL [facility] Comment: Supplemental [...] Address City/State/ZIP Code Phon e Number [address] POCT Glucose (07/09/2017 11:24 AM EST) athologist Signature POC Glucose 156 65 - 199 [facility] mg/dL [facility] Comment: Supplemental [...] Address City/State/ZIP Code Phon e Number [address] POCT Glucose (07/09/2017 11:11 AM EST) athologist Signature POC Glucose 172 65 - 199 [facility] mg/dL [facility] Comment: Supplemental [...] Address City/State/ZIP Code Phon e Number [address] POCT Glucose (07/09/2017 10:08 AM EST) athologist Signature POC Glucose 176 65 - 199 [facility] mg/dL [facility] Comment: Supplemental [...] Address City/State/ZIP [place] [address] POCT Glucose (07/09/2017 8:02 AM EST) P athologist Signature POC Glucose 178 65 - 199 [facility] mg/dL [facility] Comment: [...] Address City/State/ZIP [place] [address] (ABNORMAL) BLOOD GAS 2 ARTERIAL (07/09/2017 5:37 AM EST) Analysis Performed At Patho logist Time Signature pH Art 7.36 7.35 - [facility] 7.45 [facility] pCO2 Art 38 35 - 45 [facility] mmHg [facility] pO2 Art 79 (L) 85 - 104 [facility] mmHg [facility] HCO3 Art 20.9 20.0 - [facility] 26.0 [facility] mmol/L [facility] BE Art -4.6 (L) -3.0 - 3.0 [facility] mmol/L [facility] Hgb Blood Gas 10.5 (L) 13.7 - [facility] 16.5 gm/dL [facility] O2HB Art 93.8 (L) 94.0 - [facility] 97.0 % [facility] COHB Art 0.3 % [facility] FIO2 Art 40 % [facility] PF Ratio Art 198 [facility] Specimen Anatomical Collection Method Collection Time Receive d Time (Source) Location / / Volume Laterality Blood specimen 07/09/2017 5:37 AM 017 5:37 (specimen) EST AM EST Yuan Webber MD CHEMISTRY ORDERABLES Performing Organization Address City/State/[place] [address] POCT Glucose (07/09/2017 3:27 AM EST) P athologist Signature POC Glucose 192 65 - 199 [facility] mg/dL [facility] Comment: [...] Organization Address City/State/[place] [address] (ABNORMAL) Basic Metabolic Panel (non-fasting) (07/09/2017 2:30 AM EST) P athologist Signature Glucose Lvl 179 65 - 199 [facility] mg/dL [facility] Comment: [...] or in patients with acute kidney failure. [email or web address] Specimen Anatomical Collection Method Collection Time Receive d Time (Source) Location / / Volume Laterality Blood specimen Venous Draw / 07/09/2017 2:30 AM 2016 2:42 (specimen) Unknown EST AM EST Resulting Agency Comment Spec In Lab Yuan Webber MD CHEMISTRY ORDERABLES Performing Organization Address City/State/[place] [address] (ABNORMAL) Potassium (07/09/2017 2:30 AM EST) P athologist Signature Potassium 5.1 (H) 3.5 - 5.0 [facility] mmol/L [facility] Comment: Please [...] Webber MD CHEMISTRY ORDERABLES Performing Organization Address City/[facility]/[place] [address] (ABNORMAL) Hemogram (07/09/2017 2:30 AM EST) Analysis Performed At Patho logist Time Signature WBC 12.5 (H) 4.0 - 9.5 [facility] x10(3)/[facility] LABORATORY RBC 3.38 (L) 4.58 - [facility] 5.54 [facility] x10(6)/[facility] LABORATORY Hemoglobin 10.1 (L) 13.7 - [facility] 16.5 gm/dL [facility] [facility] Hematocrit 30.3 (L) 40.5 - [facility] 48.5 % [facility] MCV 89.6 82.9 - [place] [facility] 93.1 [facility] MCH 29.9 27.5 - [place] 32.1 pg [facility] MCHC 33.3 32.0 - [facility] 35.7 gm/dL [facility] Platelets 127 (L) 145 - 357 [facility] SU x10(3)/[facility] LABORATORY RDWSD 49.3 (H) 36.0 - [place] [facility] 45.0 [facility]ORY RDWCV 15.2 (H) 11.4 - [place] 13.8 % [facility] MPV 9.9 7.6 - 12.9 [facility] LABORATORY nRBC % Auto 0.0 % [facility] nRBC Abs Auto 0.000 0.000 - [place] DAVIS 0.000 [facility] x10(3)/[facility] LABORATORY Specimen Anatomical Collection Method Collection Time Receive d Time (Source) Location / / Volume Laterality Blood specimen 07/09/2017 2:30 AM 017 2:41 (specimen) EST AM EST Resulting Agency Comment Spec In Lab Yuan Webber MD HEMATOLOGY ORDERABLES Performing Organization Address City/State/ZIP Code Phon e Number [address] POCT Glucose (07/09/2017 2:10 AM EST) athologist Signature POC Glucose 169 65 - 199 [facility]dL [facility] Comment: [...] Address City/State/ZIP Code Phon e Number [address] POCT Glucose (07/09/2017 1:01 AM EST) athologist Signature POC Glucose 173 65 - 199 [facility] Comment: Supplemental [...] Address City/State/ZIP Code Phon e Number [address] Blood culture (07/09/2017 12:40 AM EST) [facility] Method Time Signature Blood Culture No growth [place] DAVIS at 5 days. [facility] Specimen Anatomical Collection Method Collection Time Receive d Time (Source) Location / / Volume Laterality Blood specimen STRUCTURE OF RIGHT 07/09/2017 12:40 3:58 (specimen) UPPER LIMB / AM EST AM EST Unknown Resulting Agency Comment Spec In Lab Yuan Webber MD MICROBIOLOGY - BLOOD ORDERAB LES Performing Organization Address City/[facility]/ZIP Code Phon e Number [address] Blood culture (07/09/2017 12:30 AM EST) [facility] Method Time Signature Blood Culture No growth [place] DAVIS at 5 days. [facility] Specimen Anatomical Collection Method Collection Time Receive d Time (Source) Location / / Volume Laterality Blood specimen STRUCTURE OF LEFT 07/09/2017 12:30 06/25 3:59 (specimen) UPPER LIMB / AM EST AM EST Unknown Resulting Agency Comment Spec In Lab Yuan Webber MD MICROBIOLOGY - BLOOD ORDERAB LES Performing Organization Address City/[facility]/ZIP Code Phon e Number [address] (ABNORMAL) Urinalysis Microscopic Exam (07/09/2017 12:05 AM EST) Analysis Performed At Patho logist Time Signature RBC UA 32 (H) 0 - 3 /HPF [facility] WBC UA 5 (H) 0 - 3 /HPF [facility] Squam Epith UA <1 <=4 /HPF [facility] Hyaline Cast 17 (H) 0 - 2 /LPF [facility] Gran Cast UA 1 (H) <=0 /LPF [facility] Uric Ac Bianca Rare (A) None /HPF [facility] Specimen (Source) Anatomical Collection Method Collection Time Re ceived Time Location / / Volume Laterality Urine specimen 07/09/2017 12:05 7 obtained via AM EST 12:39 AM EST indwelling urinary catheter (specimen) Resulting Agency Comment Spec In Lab Yuan Webber MD URINE ORDERABLES Performing Organization Address City/State/ZIP Code Phon e Number [address] (ABNORMAL) Urinalysis with reflex Culture (07/09/2017 12:05 AM EST) Patholo gist Method Time Signature Glucose UA Negative Negative [facility] Protein UA 30 (A) Negative [facility] mg/dL [facility] Bilirubin UA Negative Negative [facility] mg/dL [facility] Comment: Clinical [...] [facility] Nitrite UA Negative Negative [facility] Leukocytes UA Negative Negative [facility] LABORATORY Appearance UA Hazy (A) Clear [facility] Spec P[place]all UA 1.025 1.002 - 1.030 [facility] Color UA Yellow Yellow [facility] Culture Reflexed No [facility] Specimen (Source) Anatomical Collection Method Collection Time Re ceived Time Location / / Volume Laterality Urine specimen 07/09/2017 12:05 7 obtained via AM EST 12:39 AM EST indwelling urinary catheter (specimen) Resulting Agency Comment Spec In Lab Yuan Webber MD URINE ORDERABLES Performing Organization Address City/State/ZIP Code Phon e Number [place] [id number] [facility] [address] Drive POCT Glucose (07/08/2017 11:01 PM EST) P athologist Signature POC Glucose 191 65 - 199 [facility] mg/dL [facility] Comment: [...] Address City/State/ZIP [place] [address] POCT Glucose (07/08/2017 10:04 PM EST) P athologist Signature POC Glucose 198 65 - 199 [facility] mg/dL [facility] Comment: [...] Address City/State/ZIP [place] [address] Prepare Albumin 5% in [...] Address City/State/ZIP Code Phon e Number [address] POCT Glucose (07/08/2017 8:28 PM EST) P athologist Signature POC Glucose 195 65 - 199 [facility]/dL [facility] Comment: [...] City/[facility]/ZIP [place] [address] (ABNORMAL) POCT Glucose (07/08/2017 7:13 PM EST) P athologist Signature POC Glucose 220 (H) 65 - 199 [facility] mg[facility]dL [facility] Comment: Supplemental [...] City/[facility]/ZIP [place] [address] POCT Glucose (07/08/2017 5:04 PM EST) P athologist Signature POC Glucose 147 65 - 199 [facility] mg/dL [facility] Comment: Supplemental [...] Address City/State/ZIP [place] [address] (ABNORMAL) BLOOD GAS 2 ARTERIAL (07/08/2017 4:13 PM EST) Analysis Performed At Patho logist Time Signature pH Art 7.38 7.35 - [facility] 7.45 [facility] pCO2 Art 36 35 - 45 [facility] LABORATORY pO2 Art 91 85 - 104 [facility] LABORATORY HCO3 Art 20.9 20.0 - [facility] 26.0 [facility] mmol/L [facility] BE Art -4.2 (L) -3.0 - 3.0 [facility] mmol/L [facility] Hgb Blood Gas 11.7 (L) 13.7 - [facility] 16.5 gm/dL [facility] O2HB Art 95.1 94.0 - [facility] 97.0 % [facility] COHB Art 0.6 % [facility] FIO2 Art 40 % [facility] PF Ratio Art 228 [facility] Specimen Anatomical Collection Method Collection Time Receive d Time (Source) Location / / Volume Laterality Blood specimen 07/08/2017 4:13 PM 017 4:13 (specimen) EST PM EST Yuan Webber MD CHEMISTRY ORDERABLES Performing Organization Address City/State/[place] [address] POCT Glucose (07/08/2017 4:01 PM EST) athologist Signature POC Glucose 148 65 - 199 [facility] mg/dL [facility] Comment: Supplemental [...] Address City/State/ZIP Code Phon e Number [address] POCT Glucose (07/08/2017 3:21 PM EST) athologist Signature POC Glucose 118 65 - 199 [facility] mg/dL [facility] Comment: Supplemental [...] City/[facility]/ZIP Code Phon e Number [address] POCT Glucose (07/08/2017 2:01 PM EST) athologist Signature POC Glucose 129 65 - 199 [facility] mg/dL [facility] Comment: Supplemental [...] Address City/State/ZIP [place] [address] POCT Glucose (07/08/2017 11:53 AM EST) athologist Signature POC Glucose 156 65 - 199 [facility] mg/dL [facility] Comment: Supplemental [...] Address City/State/ZIP Code Phon e Number [address] POCT Glucose (07/08/2017 11:04 AM EST) athologist Signature POC Glucose 181 65 - 199 [facility] mg/dL [facility] Comment: Supplemental [...] City/[facility]/ZIP [place] [address] (ABNORMAL) POCT Glucose (07/08/2017 9:24 AM EST) athologist Signature POC Glucose 203 (H) 65 - 199 [facility] mg/dL [facility] Comment: Supplemental [...] Address City/State/ZIP Code Phon e Number [address] APTT (07/08/2017 8:40 AM EST) athologist Signature PTT 33 25 - 35 sec [facility] Comment: The recommended therapeutic range for fu ll dose, unfractionated heparin at [facility] is 80 ? 114 seconds. The [...] Address City/State/ZIP [place] [address] (ABNORMAL) Prothrombin Time (07/08/2017 [...] Address City/State/ZIP [place] [address] (ABNORMAL) POCT Glucose (07/08/2017 7:38 AM EST) athologist Signature POC Glucose 232 (H) 65 - 199 [facility] mg/dL [facility] Comment: [...] City/[facility]/ZIP [place] [address] (ABNORMAL) POCT Glucose (07/08/2017 7:07 AM EST) P athologist Signature POC Glucose 234 (H) 65 - 199 [facility] mg/dL [facility] Comment: Supplemental [...] City/[facility]/ZIP [place] [address] (ABNORMAL) POCT Glucose (07/08/2017 6:04 AM EST) P athologist Signature POC Glucose 225 (H) 65 - 199 [facility] mg/dL [facility] Comment: Supplemental [...] Address City/State/ZIP [place] [address] (ABNORMAL) POCT Glucose (07/08/2017 5:31 AM EST) P athologist Signature POC Glucose 216 (H) 65 - 199 [facility] mg/dL [facility] Comment: Supplemental [...] Address City/State/ZIP [place] [address] (ABNORMAL) POCT Glucose (07/08/2017 4:52 AM EST) P athologist Signature POC Glucose 257 (H) 65 - 199 [facility] mg/dL [facility] Comment: [...] City/[facility]/ZIP [place] [address] (ABNORMAL) BLOOD GAS 2 ARTERIAL (07/08/2017 4:04 AM EST) Analysis Performed At Patho logist Time Signature pH Art 7.30 (L) 7.35 - [facility] 7.45 [facility] pCO2 Art 41 35 - 45 [facility] mmHg [facility] pO2 Art 83 (L) 85 - 104 [facility] LABORATORY HCO3 Art 19.6 (L) 20.0 - [facility] 26.0 [facility] mmol/L HOSPITAL LABORATORY BE Art -6.8 (L) -3.0 - 3.0 [facility] mmol/L [facility] Hgb Blood Gas 12.2 (L) 13.7 - [facility] 16.5 gm/dL [facility] O2HB Art 93.5 (L) 94.0 - [facility] 97.0 % [facility] COHB Art 0.4 % [facility] Comment: Noted by electronic instrument trades worker. FIO2 Art 40 % [facility] PF Ratio Art 208 [facility] Specimen Anatomical Collection Method Collection Time Receive d Time (Source) Location / / Volume Laterality Blood specimen 07/08/2017 4:04 AM 017 4:04 (specimen) EST AM EST Daphne Shahid MD CHEMISTRY ORDERABLES Performing Organization Address City/[facility]/[place] [address] Scan, Peripheral Blood (07/08/2017 [...] Webber MD HEMATOLOGY ORDERABLES Performing Organization Address City/[facility]/[place] [address] (ABNORMAL) Differential, Automated (07/08/2017 4:00 AM EST) [facility] Method Time Signature Neutrophils % 85.4 % [facility] Neutr Abs (ANC) 16.07 (H) 1.70 - [facility] 6.10 [facility] x10(3)/[facility] L LABORATORY Lymphocytes % 3.5 % [facility] Lymphocytes Abs 0.6 (L) 0.9 - 3.2 [facility] x10(3)/[facility] LABORATORY Monocytes % 10.4 % [facility] Monocyte Abs 2.0 (H) 0.3 - 0.9 [facility] x10(3)/[facility] LABORATORY Eosinophils % 0.0 % [facility] Eosinophils Abs 0.0 0.0 - 0.4 [facility] x10(3)/[facility] LABORATORY Basophils % 0.1 % [facility] Basophils Abs 0.0 0.0 - 0.1 [facility] x10(3)/[facility] LABORATORY Immature Gran % 0.60 % [facility] Comment: Immature granulocytes(IG's)percentage an d absolute count will include metamyelocytes, myelocytes, and promyelo cytes. Blood smears from CBCs yielding IG's will be scanned manually for concor dance. If this scan disagrees with the automated IG or if promyelocytes are not ed, a manual differential will be performed. Melias Gran Abs 0.12 (H) 0.00 - 0.04 x10(3)/[facility] LABORATORY Specimen Anatomical Collection Method Collection Time Receive d Time (Source) Location / / Volume Laterality Blood specimen 07/08/2017 4:00 AM 017 4:09 (specimen) EST AM EST Resulting Agency Comment Spec In Lab Yuan Webber MD HEMATOLOGY ORDERABLES Performing Organization Address City/State/[place] [address] (ABNORMAL) Hemogram (07/08/2017 4:00 AM EST) Analysis Performed At Patho logist Time Signature WBC 18.8 (H) 4.0 - 9.5 [facility](3[facility] LABORATORY RBC 4.00 (L) 4.58 - [facility] 5.54 [facility] x10(6)/[facility] LABORATORY Hemoglobin 11.9 (L) 13.7 - [facility] 16.5 gm/dL [facility] Hematocrit 35.9 (L) 40.5 - [facility] 48.5 % [facility] MCV 89.8 82.9 - [facility] 93.1 [facility] LABORATORY MCH 29.8 27.5 - [place] 32.1 pg [facility] MCHC 33.1 32.0 - [facility] 35.7 gm/dL [facility] Platelets 232 145 - 357 [facility] x10(3)/[facility] LABORATORY RDWSD 47.6 (H) 36.0 - [facility] 45.0 [facility] LABORATORY RDWCV 14.5 (H) 11.4 - [facility] 13.8 % [facility] MPV 9.5 7.6 - 12.9 [facility] nRBC % Auto 0.0 % [facility] nRBC Abs Auto 0.000 0.000 - [place] [facility] 0.000 [facility] x10(3)/[facility] LABORATORY Specimen Anatomical Collection Method Collection Time Receive d Time (Source) Location / / Volume Laterality Blood specimen 07/08/2017 4:00 AM 017 4:09 (specimen) EST AM EST Resulting Agency Comment Spec In Lab Yuan Webber MD HEMATOLOGY ORDERABLES Performing Organization Address City/State/[place] [address] (ABNORMAL) Electrolytes panel (07/08/2017 4:00 AM EST) P athologist Signature Sodium 139 135 - 145 [facility] mmol/L [facility] Potassium 4.7 3.5 - 5.0 [facility]/L [facility] Comment: result rechecked-JLK Please [...] Organization Address City/State/[place] [address] (ABNORMAL) Cardiac Enzymes (LEB/CGP) (07/08/2017 4:00 AM EST) P athologist Signature Troponin-T 1.88 (H) 0.00 - [facility] 0.00 ng/mL [facility] [...] additional sample may be indicated. Reference: Third [place] Definition of Myocardial Infarction. Journal of the [...] Webber MD CHEMISTRY ORDERABLES Performing Organization Address City/[facility]/ZIP Code Phon e Number [address] (ABNORMAL) Glucose, fasting (07/08/2017 4:00 AM EST) athologist Signature Glucose 287 (H) 65 - 99 [facility] Fasting mg/dL [facility] [...] Webber MD CHEMISTRY ORDERABLES Performing Organization Address City/[facility]/ZIP [facility] [place] [address] (ABNORMAL) Creatinine (07/08/2017 4:00 AM EST) Analysis Performed At Patho logist Time Signature Creatinine 1.55 (H) 0.80 - [facility] 1.50 mg/dL [facility] Estimated GFR 44 (L) >=60 [facility] Comment: The reported eGFR should be multiplied b y 1.2 for patients. The MDRD is not an appropriate measure o f renal function for patients with body mass extremes or in patients with acute kidney failure. http://LoiLo/DHnkdep http://LoiLo/DHMCnkf Specimen Anatomical Collection Method Collection Time Receive d Time (Source) Location / / Volume Laterality Blood specimen 07/08/2017 4:00 AM 017 4:09 (specimen) EST AM EST Resulting Agency Comment Spec In Lab Yuan Webber MD CHEMISTRY ORDERABLES Performing Organization Address City/[facility] Phon e Number [address] BUN (07/08/2017 4:00 AM EST) P athologist Signature BUN 16 10 - 20 [facility] mg/dL [facility] Specimen Anatomical Collection Method Collection Time Receive d Time (Source) Location / / Volume Laterality Blood specimen 07/08/2017 4:00 AM 017 4:09 (specimen) EST AM EST Resulting Agency Comment Spec In Lab Yuan Webber MD CHEMISTRY ORDERABLES Performing Organization Address City/[facility] [place] [address] (ABNORMAL) POCT Glucose (07/08/2017 3:00 AM EST) P athologist Signature POC Glucose 273 (H) 65 - 199 [facility] mg/dL [facility] Comment: Supplemental [...] Address City/State/ZIP [place] [address] (ABNORMAL) POCT Glucose (07/08/2017 1:57 AM EST) athologist Signature POC Glucose 288 (H) 65 - 199 [facility] mg/dL [facility] Comment: Supplemental [...] Address City/State/ZIP [place] [address] (ABNORMAL) POCT Glucose (07/08/2017 1:01 AM EST) athologist Signature POC Glucose 315 (H) 65 - 199 [facility] mg/dL [facility] Comment: Supplemental [...] Address City/State/ZIP [place] [address] (ABNORMAL) BLOOD GAS 2 ARTERIAL (07/08/2017 12:09 AM EST) athologist Signature pH Art 7.26 7.35 - [facility] (Critical) 7.45 [facility] Comment: Noted by electronic instrument trades worker. pCO2 Art 41 35 - 45 mmHg [...] [facility] COHB Art 0.2 % [facility] Comment: Noted by electronic instrument trades worker. FIO2 Art 40 % [facility] [...] Organization Address City/State/[place] [address] (ABNORMAL) POCT Glucose (07/07/2017 10:56 PM EST) athologist Signature POC Glucose 292 (H) 65 - 199 [facility] mg/dL [facility] Comment: [...] Organization Address City/State/[place] [address] (ABNORMAL) BLOOD GAS 2 ARTERIAL (07/07/2017 10:04 PM EST) athologist Signature pH Art 7.22 7.35 - [facility] (Critical) 7.45 [facility] Comment: Noted by electronic instrument trades worker. pCO2 Art 42 35 - 45 mmHg [...] [facility] COHB Art 0.7 % [facility] [...] [facility] Comment: Noted by electronic instrument trades worker. FIO2 Art 40 % [facility] PF Ratio Art 235 [facility] Specimen Anatomical Collection Method Collection Time Receive d Time (Source) Location / / Volume Laterality Blood specimen 07/07/2017 10:04 7 (specimen) PM EST 10:04 PM EST Daphne Shahid MD CHEMISTRY ORDERABLES Performing Organization Address City/State/ZIP Code Phon e Number [address] (ABNORMAL) Hemoglobin (07/07/2017 10:00 PM EST) P athologist Signature Hemoglobin 12.8 (L) 13.7 - [facility] 16.5 gm/dL [facility] Specimen Anatomical Collection Method Collection Time Receive d Time (Source) Location / / Volume Laterality Blood specimen 07/07/2017 10:00 7 (specimen) PM EST 10:13 PM EST Resulting Agency Comment Spec In Lab Yuan Webber MD HEMATOLOGY ORDERABLES Performing Organization Address City/State/ZIP Code Phon e Number [address] (ABNORMAL) Potassium (07/07/2017 10:00 PM EST) P athologist Signature Potassium 3.4 (L) 3.5 - 5.0 [facility] mmol/L [facility] Comment: [...] Webber MD CHEMISTRY ORDERABLES Performing Organization Address City/[facility]/ZIP [place] [address] (ABNORMAL) POCT Glucose (07/07/2017 8:49 PM EST) P athologist Signature POC Glucose 241 (H) 65 - 199 [facility] mg/dL [facility] Comment: [...] City/[facility]/ZIP [place] [address] Prepare Albumin 5% in [...] [facility] ORDERABLES Performing Organization Address City/[facility]/ZIP [place] [address] EKG 12 Lead (07/07/2017 7:17 PM EST) Component Value Ref Range Test Analysis Performed Pathologis t Method Time At Signature Ventricular rate 75 BPM MUSE SYSTEM Atrial Rate 75 BPM MUSE SYSTEM P-R Interval 168 ms MUSE SYSTEM QRS Duration 104 ms MUSE SYSTEM Q-T Interval 462 ms MUSE SYSTEM QTC Calculated 515 ms MUSE SYSTEM (Bezet) Calculated P Conception 52 degrees MUSE SYSTEM Calculated R Conception -40 degrees MUSE SYSTEM Calculated T Conception 39 degrees MUSE SYSTEM INTERPRETATION Normal sinus [...] athologist Signature pH Art 7.21 7.35 - [facility] (Critical) 7.45 [facility] Comment: Noted by electronic instrument trades worker. pCO2 Art 50 (H) 35 - 45 [...] [facility] COHB Art 0.5 % [facility] Comment: Noted by electronic instrument trades worker. Please note: Patients with WBC >100,000 may [...] [facility] Comment: Noted by electronic instrument trades worker. FIO2 Art 100 % [facility] PF Ratio Art 238 [facility] Specimen Anatomical Collection Method Collection Time Receive d Time (Source) Location / / Volume Laterality Blood specimen 07/07/2017 6:57 PM 017 6:57 (specimen) EST PM EST Daphne Shahid MD CHEMISTRY ORDERABLES Performing Organization Address City/State/[place] [address] (ABNORMAL) BLOOD GAS 2 ARTERIAL (07/07/2017 5:31 PM EST) P athologist Signature pH Art 7.29 7.35 - [facility] (Critical) 7.45 [facility] Comment: Noted by electronic instrument trades worker. pCO2 Art 48 (H) 35 - 45 mmHg [facility] LABORATORY pO2 Art 137 (H) 85 - 104 mmHg [facility]ATORY HCO3 Art 22.4 20.0 - 26.0 mmol/L [facility] BE Art -4.3 (L) -3.0 - 3.0 mmol/L [facility] Hgb Blood Gas 10.0 (L) 13.7 - 16.5 gm/dL [facility] LABORATORY O2HB Art 97.3 (H) 94.0 - 97.0 % [facility] LABORATORY COHB Art 0.3 % [facility] [...] Organization Address City/State/[place] [address] Fibrinogen (07/07/2017 5:30 PM EST) P athologist Signature Fibrinogen 224 180 - 510 [facility] mg/dL [facility] Comment: Called by: JEET, [...] Perez MD HEMATOLOGY ORDERABLES Performing Organization Address City/[facility] Code Phon e Number [address] APTT (07/07/2017 5:30 PM EST) P athologist Signature PTT 30 25 - 35 sec [facility] Comment: The recommended therapeutic range for fu ll dose, unfractionated heparin at [facility] is 80 ? 114 seconds. The [...] Perez MD HEMATOLOGY ORDERABLES Performing Organization Address [facility] [place] [address] (ABNORMAL) Prothrombin Time (07/07/2017 [...] Perez MD HEMATOLOGY ORDERABLES Performing Organization Address City/[facility]/[place] [address] (ABNORMAL) Hemogram (07/07/2017 5:30 PM EST) athologist Signature WBC 19.6 (H) 4.0 - 9.5 [facility] x10(3)/[facility] LABORATORY RBC 3.08 (L) 4.58 - [facility] 5.54 [facility] x10(6)/[facility] LABORATORY Hemoglobin 9.2 (L) 13.7 - [facility] 16.5 gm/dL [facility] Hematocrit 28.0 (L) 40.5 - [facility] 48.5 % [facility] Comment: This result has been called to MONICA MORAN by DONALD GROSSMAN on 07 07 2017 at 1759, and has been read back. MCV 90.9 82.9 - 93.1 [facility] LABORATORY MCH 29.9 27.5 - 32.1 pg [facility] LABORATORY MCHC 32.9 32.0 - 35.7 gm/dL [facility] LABORATORY Platelets 155 145 - 357 x10(3)/[facility] LABORATORY RDWSD 46.5 (H) 36.0 - 45.0 [facility] LABORATORY RDWCV 14.1 (H) 11.4 - [...] Organization Address City/State/[place] [address] Prepare Platelets, Apheresis (07/07/2017 5:00 PM EST) P athologist Signature Dispensed? Yes [facility]OR[facility]ORY Specimen Anatomical Collection Method Collection Time Receive d Time (Source) Location / / Volume Laterality Blood specimen 07/07/2017 5:00 PM 017 4:58 (specimen) EST PM EST Daphne Shahid MD BLOOD BANK ORDERABLES Performing Organization Address City/State/[place] [address] Platelet count (07/07/2017 4:55 PM EST) athologist Signature Platelets 177 145 - 357 [facility] x10(3)/[facility] LABORATORY Plat Immature 1.5 0.0 - 7.4 [facility] % % [facility] Comment: Limitation of the Immature Platelet Frac tion (IPF)-May be less reliable when the platelet count is less than [id number]/u L due to statistical imprecision. The IPF [...] in a decreased state of production. References: [employer] The Clinical Value of the Immature Platelet Fraction (IPF) in Cell Recovery Document Number 10-1143 12/2010 [employer] The Role of the Imm ature Platelet Fraction (IPF) in the Differential Diagnosis of Thrombocytopen ia, Document [id number] V0/07/08 P012/06 Specimen Anatomical Collection Method Collection Time Receive d Time (Source) Location / / Volume Laterality Blood specimen 07/07/2017 4:55 PM 017 5:13 (specimen) EST PM EST Resulting Agency Comment Spec In Lab Daphne Shahid MD HEMATOLOGY ORDERABLES Performing Organization Address City/[facility]/ZIP [place] [address] (ABNORMAL) Hemoglobin and Hematocrit, blood (07/07/2017 4:55 PM EST) P athologist Signature Hemoglobin 9.1 (L) 13.7 - 16.5 [facility] Comment: This [...] Shahid MD HEMATOLOGY ORDERABLES Performing Organization Address City/[facility]/ZIP [place] [address] (ABNORMAL) BLOOD GAS 2 ARTERIAL (07/07/2017 4:38 PM EST) Analysis Performed At Patho logist Time Signature pH Art 7.37 7.35 - [facility] 7.45 [facility] pCO2 Art 44 35 - 45 [facility] mmHg [facility] pO2 Art 322 (H) 85 - 104 [facility] mmHg [facility] HCO3 Art 24.9 20.0 - [facility] 26.0 [facility] mmol/L [facility] LABORATORY BE Art -0.4 -3.0 - 3.0 [facility] mmol/L [facility] Hgb Blood Gas 10.1 (L) 13.7 - [facility] 16.5 gm/dL [facility] O2HB Art 98.7 (H) 94.0 - [facility] 97.0 % [facility] COHB Art 0.1 % [facility] Comment: Noted by electronic instrument trades worker. Note: ??Total bilirubin higher than 20 m [...] Organization Address City/State/[place] [address] (ABNORMAL) BLOOD GAS 2 VENOUS (07/07/2017 4:06 PM EST) Analysis Performed At Patho logist Time Signature pH Cody 7.31 (L) 7.32 - [facility] 7.42 [facility] pCO2 Cody 47 41 - 51 [facility] LABORATORY pO2 Cody 53 (H) 25 - 40 [facility] LABORATORY HCO3 Cody 22.7 mmol/L [facility]OR[facility] BE Cody -3.7 mmol/L [facility] Hgb Blood Gas 10.2 (L) 13.7 - [facility] 16.5 gm/dL [facility] O2HB Cody 81.0 % [facility] [...] [facility] Comment: Noted by electronic instrument trades worker. Note: ??Total bilirubin higher than 20 m g/dL may lead to falsely low ionized calcium. CL Whole Blood 100 98 - 107 mmol/L [facility] LABORATORY Gluc Whole Bld 231 (H) 65 - 199 mg/dL [facility] Comment: Diabetes: >=200 mg/dL plus symp toms Lactate WB 1.1 0.5 - 2.2 mmol/L [facility] LABORATORY BGas Source Venous [facility] LABORATORY Specimen Anatomical Collection Method Collection Time Receive d Time (Source) Location / / Volume Laterality Blood specimen 07/07/2017 4:06 PM 017 4:06 (specimen) EST PM EST Daphne Shahid MD CHEMISTRY ORDERABLES Performing Organization Address City/State/[place] [address] (ABNORMAL) BLOOD GAS 2 ARTERIAL (07/07/2017 4:05 PM EST) Analysis Performed At Patho logist Time Signature pH Art 7.36 7.35 - [facility] 7.45 [facility] pCO2 Art 40 35 - 45 [facility] LABORATORY pO2 Art 282 (H) 85 - 104 [facility] LABORATORY HCO3 Art 22.1 20.0 - [facility] 26.0 [facility] mmol/L [facility] LABORATORY BE Art -3.4 (L) -3.0 - 3.0 [facility] mmol/L [facility] Hgb Blood Gas 10.2 (L) 13.7 - [facility] 16.5 gm/dL [facility] O2HB Art 98.4 (H) 94.0 - [facility] 97.0 % [facility] COHB Art 0.3 % [facility] Comment: Noted by electronic instrument trades worker. Note: ??Total bilirubin higher than 20 m [...] Organization Address City/State/[place] [address] (ABNORMAL) BLOOD GAS 2 ARTERIAL (07/07/2017 2:29 PM EST) Analysis Performed At Patho logist Time Signature pH Art 7.43 7.35 - [facility] 7.45 [facility] pCO2 Art 36 35 - 45 [facility] LABORATORY pO2 Art 221 (H) 85 - 104 [facility] LABORATORY HCO3 Art 23.2 20.0 - [facility] 26.0 [facility] mmol/L [facility] LABORATORY BE Art -1.2 -3.0 - 3.0 [facility] mmol/L [facility] Hgb Blood Gas 13.9 13.7 - [facility] 16.5 gm/dL [facility] O2HB Art 97.8 (H) 94.0 - [facility] 97.0 % [facility] COHB Art 1.1 % [facility] [...] Address City/State/ZIP [place] [address] Prepare Coag Factors (Non-Hemophilia) (07/07/2017 1:25 PM EST) P athologist Signature Dispensed? Yes [facility] Specimen Anatomical Collection Method Collection Time Receive d Time (Source) Location / / Volume Laterality Blood specimen 07/07/2017 1:25 PM 017 1:21 (specimen) EST PM EST Daphne Shahid MD BLOOD BANK ORDERABLES Performing Organization Address City/State/ZIP Code Phon e Number [address] Prepare RBC (07/07/2017 1:10 PM EST) P athologist Signature Dispensed? Yes [facility] Specimen Anatomical Collection Method Collection Time Receive d Time (Source) Location / / Volume Laterality Blood specimen 07/07/2017 1:10 PM 017 1:05 (specimen) EST PM EST Daphne Shahid MD BLOOD BANK ORDERABLES Performing Organization Address City/State/ZIP [place] [address] POCT Glucose (07/07/2017 11:56 AM EST) athologist Signature POC Glucose 188 65 - 199 [facility] mg/dL [facility] Comment: Supplemental [...] City/[facility]/ZIP [place] [address] POCT Glucose (07/07/2017 11:05 AM EST) athologist Signature POC Glucose 168 65 - 199 [facility] Comment: Supplemental [...] Address City/State/ZIP Code Phon e Number [address] POCT Glucose (07/07/2017 10:02 AM EST) P athologist Signature POC Glucose 191 65 - 199 [facility] mg/dL [facility] Comment: Supplemental [...] Address City/State/ZIP Code Phon e Number [address] POCT Glucose (07/07/2017 7:53 AM EST) athologist Signature POC Glucose 178 65 - 199 [facility] mg/dL [facility] Comment: Supplemental [...] Address City/State/ZIP Code Phon e Number [address] POCT Glucose (07/07/2017 7:03 AM EST) athologist Signature POC Glucose 188 65 - 199 [facility] mg/dL [facility] Comment: Supplemental [...] Address City/State/ZIP [place] [address] (ABNORMAL) POCT Glucose (07/07/2017 6:17 AM EST) athologist Signature POC Glucose 207 (H) 65 - 199 [facility] mg/dL [facility] Comment: Supplemental [...] City/[facility]/ZIP Code Phon e Number [address] Differential, Automated (07/07/2017 5:15 AM EST) athologist Signature Neutrophils % 69.7 % [facility] Neutr Abs (ANC) 5.32 1.70 - [facility] 6.10 [facility] x10(3)/[facility] LABORATORY Lymphocytes % 16.3 % [facility]OR[facility]ORY Lymphocytes Abs 1.2 0.9 - 3.2 [facility] x10(3)/[facility] LABORATORY Monocytes % 10.5 % [facility]ORATORY Monocyte Abs 0.8 0.3 - 0.9 [facility] x10(3)/[facility] LABORATORY Eosinophils % 2.5 % [facility]ORY Eosinophils Abs 0.2 0.0 - 0.4 [facility] x10(3)/[facility] LABORATORY Basophils % 0.7 % [facility]ORATORY Basophils Abs 0.0 0.0 - 0.1 [facility] x10(3)/[facility] LABORATORY Immature Gran % 0.30 % [facility] [...] - 0.04 x10(3)/[facility] LABORATORY Specimen Anatomical Collection Method Collection Time Receive d Time (Source) Location / / Volume Laterality Blood specimen 07/07/2017 5:15 AM 017 5:34 (specimen) EST AM EST Resulting Agency Comment Spec In Lab Daphne Shahid MD HEMATOLOGY ORDERABLES Performing Organization Address City/State/ZIP [place] [address] (ABNORMAL) Hemogram (07/07/2017 5:15 AM EST) Analysis Performed At Patho logist Time Signature WBC 7.6 4.0 - 9.5 [facility] x10(3)/[facility] LABORATORY RBC 4.82 4.58 - [facility] 5.54 [facility] x10(6)/[facility] Hemoglobin 14.4 13.7 - [facility] 16.5 gm/dL [facility] Hematocrit 42.1 40.5 [facility] 48.5 % [facility] MCV 87.3 82.9 - [facility] 93.1 [facility] LABORATORY MCH 29.9 27.5 - [facility] 32.1 pg [facility]ATORY MCHC 34.2 32.0 - [facility] 35.7 gm/dL [facility] Platelets 188 145 - 357 [facility] x10(3)/[facility] LABORATORY RDWSD 45.1 (H) 36.0 - [facility] 45.0 [facility] RDWCV 14.3 (H) 11.4 - [facility] SU 13.8 % [facility] LABORATORY MPV 9.4 7.6 - 12.9 [facility] LABORATORY nRBC % Auto 0.0 % [facility] LABORATORY nRBC Abs Auto 0.000 0.000 - [facility] 0.000 [facility] x10(3)/[facility] LABORATORY Specimen Anatomical Collection Method Collection Time Receive d Time (Source) Location / / Volume Laterality Blood specimen 07/07/2017 5:15 AM 017 5:34 (specimen) EST AM EST Resulting Agency Comment Spec In Lab Daphne Shahid MD HEMATOLOGY ORDERABLES Performing Organization Address City/[facility]/ZIP [place] [address] (ABNORMAL) APTT (07/07/2017 5:15 AM EST) P athologist Signature PTT 69 (H) 25 - 35 sec [facility] Comment: The recommended therapeutic range for fu ll dose, unfractionated heparin at [facility] is 80 ? 114 seconds. The [...] Shahid MD HEMATOLOGY ORDERABLES Performing Organization Address City/[facility]/ZIP [place] [address] Magnesium (07/07/2017 5:15 AM EST) P athologist Signature Magnesium 0.94 0.69 - 1.07 [facility] mmol/L [facility]OR[facility]ORY Specimen Anatomical Collection Method Collection Time Receive d Time (Source) Location / / Volume Laterality Blood specimen 07/07/2017 5:15 AM 017 5:34 (specimen) EST AM EST Resulting Agency Comment Spec In Lab Daphne Shahid MD CHEMISTRY ORDERABLES Performing Organization Address City/[facility]/ZIP [place] [address] (ABNORMAL) Basic Metabolic Panel (non-fasting) (07/07/2017 5:15 AM EST) athologist Signature Glucose Lvl 203 (H) 65 - 199 [facility] mg/dL [facility] Comment: [...] [facility] Estimated GFR >60 >=60 [facility]ORY Comment: The reported eGFR should be multiplied b y 1.2 for patients. The MDRD is not an appropriate measure o f renal function for patients with body mass extremes or in patients with acute kidney failure. [email or web address]/DHnkdep http://LoiLo/DHMCnkf Specimen Anatomical Collection Method Collection Time Receive d Time (Source) Location / / Volume Laterality Blood specimen 07/07/2017 5:15 AM 017 5:34 (specimen) EST AM EST Resulting Agency Comment Spec In Lab Daphne Shahid MD CHEMISTRY ORDERABLES Performing Organization Address City/State/[place] [address] (ABNORMAL) Cardiac Enzymes (LEB/CGP) (07/07/2017 5:15 AM EST) athologist Signature Troponin-T 2.07 (H) 0.00 - [facility] 0.00 ng/mL [facility]OR[facility]ORY [...] additional sample may be indicated. Reference: Third Waterloo Definition of Myocardial Infarction. Journal of the [...] Organization Address City/State/[place] [address] POCT Glucose (07/07/2017 5:01 AM EST) P athologist Signature POC Glucose 182 65 - 199 [facility] mg/dL [facility] Comment: [...] Address City/State/ZIP Code Phon e Number [address] POCT Glucose (07/07/2017 4:08 AM EST) athologist Signature POC Glucose 199 65 - 199 [facility] mg[facility]dL [facility] Comment: Supplemental [...] City/[facility]/ZIP [place] [address] POCT Glucose (07/07/2017 3:03 AM EST) athologist Signature POC Glucose 188 65 - 199 [facility] mg/dL [facility] Comment: Supplemental [...] Address City/State/ZIP [place] [address] (ABNORMAL) POCT Glucose (07/07/2017 2:08 AM EST) athologist Signature POC Glucose 200 (H) 65 - 199 [facility] mg/dL [facility] Comment: Supplemental [...] Address City/State/ZIP [place] [address] (ABNORMAL) POCT Glucose (07/07/2017 1:31 AM EST) P athologist Signature POC Glucose 209 (H) 65 - 199 [facility] Comment: [...] Address City/State/ZIP [place] [address] XR Chest PA or [...] POC Glucose 161 65 - 199 [facility] mg/dL [facility] Comment: Supplemental [...] City/[facility]/ZIP [place] [address] (ABNORMAL) APTT (07/07/2017 12:00 AM EST) athologist Signature PTT 103 (H) 25 - 35 sec [facility] Comment: The recommended therapeutic range for fu ll dose, unfractionated heparin at [facility] is 80 ? 114 seconds. The [...] Address City/State/ZIP [place] [address] POCT Glucose (07/06/2017 9:55 PM EST) athologist Signature POC Glucose 109 65 - 199 [facility] mg/dL [facility] Comment: [...] Address City/State/ZIP Code Phon e Number [address] POCT Glucose (07/06/2017 9:04 PM EST) athologist Signature POC Glucose 120 65 - 199 [facility] mg/dL [facility] Comment: Supplemental [...] City/[facility]/ZIP [place] [address] POCT Glucose (07/06/2017 7:45 PM EST) athologist Signature POC Glucose 158 65 - 199 [facility] mg/dL [facility] Comment: Supplemental [...] City/[facility]/ZIP [place] [address] Potassium (07/06/2017 7:40 PM EST) athologist Signature Potassium 3.9 3.5 - 5.0 [facility] mmol/L [facility] Comment: [...] Shahid MD CHEMISTRY ORDERABLES Performing Organization Address City/[facility]/[place] [address] (ABNORMAL) Cardiac Enzymes (LEB/CGP) (07/06/2017 7:40 PM EST) athologist Signature Troponin-T 2.27 (H) 0.00 - [facility] 0.00 ng/mL [facility] Comment: [...] additional sample may be indicated. Reference: Third Waterloo Definition of Myocardial Infarction. Journal of the [...] Address City/State/ZIP [place] [address] (ABNORMAL) POCT Glucose (07/06/2017 7:13 PM EST) athologist Signature POC Glucose 200 (H) 65 - 199 [facility] mg/dL [facility] Comment: Supplemental ranges: <140 mg/dL before meals <180 mg/dL all other times of the day Specimen Anatomical Collection Method Collection Time Receive d Time (Source) Location / / Volume Laterality Blood specimen 07/06/2017 7:13 PM 017 7:13 (specimen) EST PM EST Daphne Shahid MD POINT OF CARE TEST ORDERABLE S Performing Organization Address City/State/ZIP Code [facility] [place] [address] (ABNORMAL) APTT (07/06/2017 6:15 PM EST) athologist [facility] PTT 94 (H) 25 - 35 sec [facility] Comment: The recommended therapeutic range for fu ll dose, unfractionated heparin at [facility] is 80 ? 114 seconds. The [...] Address City/State/ZIP [place] [address] (ABNORMAL) POCT Glucose (07/06/2017 6:03 PM EST) athologist Signature POC Glucose 236 (H) 65 - 199 [facility] mg/dL [facility] Comment: [...] Address City/State/ZIP [place] [address] (ABNORMAL) POCT Glucose (07/06/2017 5:01 PM EST) P athologist Signature POC Glucose 235 (H) 65 - 199 [facility] mg/dL [facility] Comment: Supplemental [...] City/[facility]/ZIP [place] [address] (ABNORMAL) POCT Glucose (07/06/2017 4:06 PM EST) P athologist Signature POC Glucose 202 (H) 65 - 199 [facility] mg/dL [facility] Comment: Supplemental [...] Address City/State/ZIP [place] [address] POCT Glucose (07/06/2017 2:59 PM EST) P athologist Signature POC Glucose 178 65 - 199 [facility] mg/dL [facility] Comment: Supplemental [...] City/[facility]/ZIP Code Phon e Number [address] (ABNORMAL) Cardiac Enzymes (LEB/CGP) (07/06/2017 2:10 PM EST) P athologist Signature Troponin-T 2.34 (H) 0.00 - [facility] 0.00 ng/mL [facility] Comment: [...] additional sample may be indicated. Reference: Third Waterloo Definition of Myocardial Infarction. Journal of the [place] [employer] 2012;60:1581-98 CK, Total 101 0 - 200 unit/L [facility]ORY Specimen Anatomical Collection Method Collection Time Receive d Time (Source) Location / / Volume Laterality Blood specimen 07/06/2017 2:10 PM 017 2:26 (specimen) EST PM EST Resulting Agency Comment Spec In Lab Daphne Shahid MD CHEMISTRY ORDERABLES Performing Organization Address City/[facility]/ZIP [place] [address] POCT Glucose (07/06/2017 2:08 PM EST) P athologist Signature POC Glucose 192 65 - 199 [facility] mg/dL [facility] Comment: Supplemental [...] Address City/State/ZIP Code Phon e Number [address] POCT Glucose (07/06/2017 1:04 PM EST) athologist Signature POC Glucose 162 65 - 199 [facility] mg/dL [facility] Comment: Supplemental [...] Address City/State/ZIP Code Phon e Number [address] POCT Glucose (07/06/2017 12:05 PM EST) athologist Signature POC Glucose 196 65 - 199 [facility] mg/dL [facility] Comment: Supplemental [...] Address City/State/ZIP Code Phon e [place] [address] EKG 12 Lead (07/06/2017 12:00 PM EST) Component Value Ref Range Test Analysis Performed Pathologis t Method Time At Signature Ventricular rate 91 BPM MUSE SYSTEM Atrial Rate 91 BPM MUSE SYSTEM P-R Interval 140 ms MUSE SYSTEM QRS Duration 94 ms MUSE SYSTEM Q-T Interval 394 ms MUSE SYSTEM QTC Calculated 484 ms MUSE SYSTEM (Bezet) Calculated P Conception 36 degrees MUSE SYSTEM Calculated R Conception -19 degrees MUSE SYSTEM Calculated T Conception 104 degrees MUSE SYSTEM INTERPRETATION Normal sinus rhythm MUSE SYSTEM 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) ST & T wave abnormality, consider lateral ischemia Abnormal ECG When compared with ECG of 05-JUL-2017 20:39, No significant change was found Confirmed by MD Luci, Taurus Braun ([id number]) on 07/06/2017 5:07:33 PM Specimen Anatomical Collection Method Collection Time Receive d Time (Source) Location / / Volume Laterality 07/06/2017 12:00 07/06/2017 5:07 PM EST PM EST Daphne Shahid MD ECG ORDERABLES Performing Organization Address City/[facility]/ZIP Code Phon e Number MUSE SYSTEM ABORH [...] MD BLOOD BANK ORDERABLES Performing Organization Address City/[facility]/[place] [address] Antibody screen (07/06/2017 12:00 PM EST) [facility] Method Time Signature Ab Screen Negative [facility] LABORATORY Expires at 07/09/2017 [facility] [id number] on: [facility] LABORATORY Specimen Anatomical Collection Method Collection Time Receive d Time (Source) Location / / Volume Laterality Blood specimen 07/06/2017 12:00 7 (specimen) PM EST 12:24 PM EST Resulting Agency Comment Spec In Lab Daphne Shahid MD BLOOD BANK ORDERABLES Performing Organization Address City/[facility]/[place] [address] ABO/Rh Typing (07/06/2017 12:00 [...] City/State/ZIP Code Phon e Number [place] [id number] Prothrombin Time (07/06/2017 11:24 AM EST) athologist Signature PT 13.3 11.8 - 14.0 [facility] LABORATORY INR 1.0 0.9 - 1.1 [facility] [...] City/State/ZIP Code Phon e Number [place] [id number] (ABNORMAL) APTT (07/06/2017 11:24 AM EST) P athologist Signature PTT 52 (H) 25 - 35 sec [facility] LABORATORY Comment: The recommended therapeutic range for fu ll dose, unfractionated heparin at [facility] is 80 ? 114 seconds. The [...] Address City/State/ZIP Code Phon e Number [address] POCT Glucose (07/06/2017 11:02 AM EST) athologist Signature POC Glucose 187 65 - 199 [place] mg/dL [facility] LABORATORY Comment: Supplemental [...] Address City/State/ZIP Code Phon e Number [address] POCT Glucose (07/06/2017 10:18 AM EST) athologist Signature POC Glucose 193 65 - 199 [place] mg/dL [facility] LABORATORY Comment: Supplemental [...] Address City/State/ZIP Code Phon e Number [address] POCT Glucose (07/06/2017 9:25 AM EST) athologist Signature POC Glucose 182 65 - 199 [place] mg/dL [facility] LABORATORY Comment: Supplemental [...] City/[facility]/[place] [address] (ABNORMAL) Cardiac Enzymes (LEB/CGP) (07/06/2017 8:10 AM EST) P athologist Signature Troponin-T 2.26 (H) 0.00 [facility] ng/mL [facility] LABORATORY [...] additional sample may be indicated. Reference: Third Waterloo Definition of Myocardial Infarction. Journal of the [...] Address City/State/ZIP Code Phon e Number [place] [address] Magnesium (07/06/2017 8:10 AM EST) athologist Signature Magnesium 0.84 0.69 - 1.07 [facility] mmol/L [facility] LABORATORY Specimen Anatomical Collection Method Collection Time Receive d Time (Source) Location / / Volume Laterality Blood specimen 07/06/2017 8:10 AM 017 8:21 (specimen) EST AM EST Resulting Agency Comment Spec In Lab Daphne Shahid MD CHEMISTRY ORDERABLES Performing Organization Address City/State/ZIP Code Phon e Number [address] (ABNORMAL) Basic Metabolic Panel (non-fasting) (07/06/2017 8:10 AM EST) athologist Signature Glucose Lvl 199 65 - 199 [facility] mg/dL [facility] LABORATORY Comment: [...] [facility] Estimated GFR >60 >=60 [facility] LABORATORY Comment: The reported eGFR should be multiplied b y 1.2 for patients. The MDRD is not an appropriate measure o f renal function for patients with body mass extremes or in patients with acute kidney failure. [email or web address].[email or web address]/DHnkdep [email or web address].Carsabi/DHMCnkf Specimen Anatomical Collection Method Collection Time Receive d Time (Source) Location / / Volume Laterality Blood specimen 07/06/2017 8:10 AM 017 8:21 (specimen) EST AM EST Resulting Agency Comment Spec In Lab Daphne Shahid MD CHEMISTRY ORDERABLES Performing Organization Address City/[facility]/ZIP Code Phon e Number [address] POCT Glucose (07/06/2017 7:34 AM EST) athologist Signature POC Glucose 198 65 - 199 [facility] LAB[facility] Comment: Supplemental [...] City/[facility]/ZIP [place] [address] POCT Glucose (07/06/2017 7:03 AM EST) athologist Signature POC Glucose 181 65 - 199 [facility] mg/dL [facility] Comment: Supplemental [...] City/[facility]/ZIP [place] [address] XR Chest PA or [...] Signature POC Glucose 172 65 - 199 [facility] mg/dL [facility] LABORATORY Comment: [...] Address City/State/ZIP Code Phon e Number [address] POCT Glucose (07/06/2017 5:08 AM EST) athologist Signature POC Glucose 154 65 - 199 [place] mg/dL [facility] LABORATORY Comment: Supplemental [...] Address City/State/ZIP Code Phon e Number [address] POCT Glucose (07/06/2017 4:05 AM EST) athologist Signature POC Glucose 142 65 - 199 [place] mg/dL [facility] LABORATORY Comment: Supplemental [...] Address City/State/ZIP Code Phon e Number [address] POCT Glucose (07/06/2017 3:00 AM EST) athologist Signature POC Glucose 116 65 - 199 [place] mg/dL [facility] LABOR[facility]ORY Comment: Supplemental [...] City/[facility]/ZIP Code Phon e Number [address] Potassium (07/06/2017 2:20 AM EST) athologist Signature Potassium 3.9 3.5 - 5.0 [facility] mmol/L [facility] LAB[facility] Comment: Please [...] Shahid MD CHEMISTRY ORDERABLES Performing Organization Address City/[facility]/ZIP Code Phon e Number [address] Differential, Automated (07/06/2017 2:20 AM EST) athologist Signature Neutrophils % 72.9 % [facility] LABORATORY Neutr Abs (ANC) 5.53 1.70 - [facility] 6.10 [facility] x10(3)/[facility] LABORATORY Lymphocytes % 16.4 % [facility] LABORATORY Lymphocytes Abs 1.2 0.9 - 3.2 [facility] x10(3)/[facility] LABORATORY Monocytes % 9.4 % [facility] LABORATORY Monocyte Abs 0.7 0.3 - 0.9 [facility] x10(3)/[facility] LABORATORY Eosinophils % 0.5 % [facility] LABORATORY Eosinophils Abs 0.0 0.0 - 0.4 [facility] x10(3)/[facility] LABORATORY Basophils % 0.4 % [facility] LABORATORY Basophils Abs 0.0 0.0 - 0.1 [facility] x10(3)/[facility] LABORATORY Immature Gran % 0.40 % [facility] [...] - 0.04 x10(3)/[facility] LABORATORY Specimen Anatomical Collection Method Collection Time Receive d Time (Source) Location / / Volume Laterality Blood specimen 07/06/2017 2:20 AM 017 2:33 (specimen) EST AM EST Resulting Agency Comment Spec In Lab Daphne hSahid MD HEMATOLOGY ORDERABLES Performing Organization Address City/State/[place] [address] (ABNORMAL) Hemogram (07/06/2017 2:20 AM EST) Analysis Performed At Patho logist Time Signature WBC 7.6 4.0 - 9.5 [facility] x10(3)/[facility] LABORATORY RBC 4.52 (L) 4.58 [facility] 5.54 [facility] x10(6)/[facility] LABORATORY Hemoglobin 13.4 (L) 13.7 - [facility] 16.5 gm/dL [facility] LABORATORY Hematocrit 39.7 (L) 40.5 - [facility] 48.5 % [facility] LABORATORY MCV 87.8 82.9 - [facility] 93.1 [facility] LABORATORY MCH 29.6 27.5 - [facility] SU 32.1 pg [facility] LABORATORY MCHC 33.8 32.0 - [facility] 35.7 gm/dL [facility] LABORATORY Platelets 189 145 - 357 [facility] x10(3)/[facility] LABORATORY RDWSD 45.6 (H) 36.0 - [facility] 45.0 [facility] LABORATORY RDWCV 14.3 (H) 11.4 - [facility] SU 13.8 % [facility] LABORATORY MPV 9.1 7.6 - 12.9 [facility] LABORATORY nRBC % Auto 0.0 % [facility] LABORATORY nRBC Abs Auto 0.000 0.000 - [place] 0.000 [facility] x10(3)/[facility] LABORATORY Specimen Anatomical Collection Method Collection Time Receive d Time (Source) Location / / Volume Laterality Blood specimen 07/06/2017 2:20 AM 017 2:33 (specimen) EST AM EST Resulting Agency Comment Spec In Lab Daphne Shahid MD HEMATOLOGY ORDERABLES Performing Organization Address City/State/ZIP Code Phon e Number [address] (ABNORMAL) APTT (07/06/2017 2:20 AM EST) P athologist Signature PTT 52 (H) 25 - 35 sec [facility] LABORATORY Comment: The recommended therapeutic range for fu ll dose, unfractionated heparin at [facility] is 80 ? 114 seconds. The [...] Shahid MD HEMATOLOGY ORDERABLES Performing Organization Address City/[facility]/ZIP Code Phon e Number [address] POCT Glucose (07/06/2017 2:20 AM EST) P athologist Signature POC Glucose 115 65 - 199 [facility] mg/dL [facility] LABORATORY Comment: [...] City/[facility]/ZIP [place] [address] (ABNORMAL) Cardiac Enzymes (LEB/CGP) (07/06/2017 2:20 AM EST) P athologist Signature Troponin-T 2.13 (H) 0.00 - [place] 0.00 ng/mL [facility] LABORATORY Comment: [...] additional sample may be indicated. Reference: Third Waterloo Definition of Myocardial Infarction. Journal of the [...] Organization Address City/State/[place] [address] (ABNORMAL) Hemoglobin A1c (07/06/2017 [...] with hemoglobinopathies. Additional resources are available on [facility] ADA website. Macario HAMMOND, Ruthann J, Deysi R, et al. ??Tr anslating the A1C assay into estimated average glucose values. ??Diabetes Care 2008:31(8):5713-6901. Specimen Anatomical Collection Method Collection Time Receive d Time (Source) Location / / Volume Laterality Blood specimen 07/06/2017 2:20 AM 017 2:34 (specimen) EST AM EST Resulting Agency Comment Spec In Lab Daphne Shahid MD CHEMISTRY ORDERABLES Performing Organization Address City/State/ZIP Code Phon e Number [facility], [id number] (ABNORMAL) Lipid Panel (07/06/2017 2:20 AM EST) Patholo gist Method Time Signature Chol, Total 150 <=239 [place] mg/dL [facility] LABORATORY Triglycerides 129 <=199 [facility] mg/dL [facility] LABORATORY HDL 32 (L) >=40 [place] mg/dL [facility] LABORATORY LDL Cholesterol 92 <=190 [facility] mg/dL [facility] LABORATORY Chol/HDL Ratio 4.7 ratio [facility] LABORATORY Lipid See Note [place] Interpretation [facility] LABORATORY Comment: Lipid management should be guided by a p atient? s ASCVD risk, goals and preferences. ACC/AHA Guidelines recommend high intens ity statin if clinical ASCVD or LDL greater than or equal to 190 mg/dL. http://LoiLo/UTU-LZL-Qdamwpkjk Adults aged 40-75 with LDL 70-189 mg/dL should have their 10 year ASCVD risk estimated with the ACC/AHA ASCVD risk es timator http://tools.acc.org/ZUGEE-Aywn-Eynepzqe r/ Statin should be discussed if risk [...] Address City/State/ZIP Code Phon e Number [address] POCT Glucose (07/06/2017 1:09 AM EST) athologist Signature POC Glucose 121 65 - 199 [place] mg/dL [facility] LABORATORY Comment: Supplemental [...] Address City/State/ZIP Code Phon e Number [address] POCT Glucose (07/06/2017 12:06 AM EST) athologist Signature POC Glucose 147 65 - 199 [place] mg/dL [facility] LABORATORY Comment: Supplemental [...] Address City/State/ZIP [place] [address] (ABNORMAL) POCT Glucose (07/05/2017 10:56 PM EST) athologist Signature POC Glucose 200 (H) 65 - 199 [place] mg/dL [facility] LABORATORY Comment: Supplemental [...] Address City/State/ZIP [place] [address] (ABNORMAL) POCT Glucose (07/05/2017 10:05 PM EST) athologist Signature POC Glucose 225 (H) 65 - 199 [place] mg/dL [facility] LABORATORY Comment: Supplemental [...] Address City/State/ZIP [place] [address] (ABNORMAL) POCT Glucose (07/05/2017 9:02 PM EST) P athologist Signature POC Glucose 301 (H) 65 - 199 [facility] mg/dL [facility] LABOR[facility]ORY Comment: [...] Address City/State/ZIP [place] [address] XR Chest PA or [...] 474 ms MUSE SYSTEM (Bezet) Calculated P Conception 50 degrees MUSE SYSTEM Calculated R Conception -28 degrees MUSE SYSTEM Calculated T Conception 90 degrees MUSE SYSTEM INTERPRETATION Sinus tachycardia [...] Neutr Abs (ANC) 9.08 (H) 1.70 - [facility] 6.10 [facility] x10(3)/[facility] L LABORATORY Lymphocytes % 7.0 % [facility] LABORATORY Lymphocytes Abs 0.7 (L) 0.9 - 3.2 [facility] x10(3)/[facility] LABORATORY Monocytes % 3.7 % [facility] LABORATORY Monocyte Abs 0.4 0.3 - 0.9 [facility] x10(3)/[facility] LABORATORY Eosinophils % 0.1 % [facility] LABORATORY Eosinophils Abs 0.0 0.0 - 0.4 [facility] x10(3)/[facility] LABORATORY Basophils % 0.2 % [facility] LABORATORY Basophils Abs 0.0 0.0 - 0.1 [facility] x10(3)/[facility] LABORATORY Immature Gran % 0.60 % [facility] [...] Organization Address City/State/[place] [address] (ABNORMAL) Hemogram (07/05/2017 8:20 PM EST) Analysis Performed At Patho logist Time Signature WBC 10.3 (H) 4.0 - 9.5 [facility] x10(3)/[facility] LABORATORY RBC 4.64 4.58 - [facility] 5.54 [facility] x10(6)/[facility] LABORATORY Hemoglobin 14.1 13.7 - [facility] 16.5 gm/dL [facility] LABORATORY Hematocrit 40.8 40.5 - [facility] 48.5 % [facility] LABORATORY MCV 87.9 82.9 - [place] 93.1 [facility] LABORATORY MCH 30.4 27.5 - [place] 32.1 pg [facility] LABORATORY MCHC 34.6 32.0 - [place] [facility] 35.7 gm/dL [facility] LABORATORY Platelets 204 145 - 357 [facility] x10(3)/[facility] LABORATORY RDWSD 46.1 (H) 36.0 - [place] 45.0 [facility] LABORATORY RDWCV 14.5 (H) 11.4 - [facility] SU 13.8 % [facility] LABORATORY MPV 9.7 7.6 - 12.9 [facility] LABORATORY nRBC % Auto 0.0 % [facility] LABORATORY nRBC Abs Auto 0.000 0.000 - [place] 0.000 [facility] x10(3)/[facility] LABORATORY Specimen Anatomical Collection Method Collection Time Receive d Time (Source) Location / / Volume Laterality Blood specimen 07/05/2017 8:20 PM 017 8:27 (specimen) EST PM EST Resulting Agency Comment Spec In Lab Daphne Shahid MD HEMATOLOGY ORDERABLES Performing Organization Address City/State/ZIP [place] [address] APTT (07/05/2017 8:20 PM EST) P athologist Signature PTT 32 25 - 35 sec [facility] LABORATORY Comment: The recommended therapeutic range for fu ll dose, unfractionated heparin at [facility] is 80 ? 114 seconds. The [...] Address City/State/ZIP [place] [address] (ABNORMAL) Cardiac Enzymes (LEB/CGP) (07/05/2017 8:20 PM EST) athologist Signature Troponin-T 2.11 (H) 0.00 - [place] [facility] 0.00 ng/mL [facility] LABORATORY [...] additional sample may be indicated. Reference: Third Waterloo Definition of Myocardial Infarction. Journal of the [...] Organization Address City/State/[place] [address] (ABNORMAL) Magnesium (07/05/2017 8:20 PM EST) P athologist Signature Magnesium 0.68 (L) 0.69 - 1.07 [facility] mmol/L [facility] LABORATORY Specimen Anatomical Collection Method Collection Time Receive d Time (Source) Location / / Volume Laterality Blood specimen 07/05/2017 8:20 PM 017 8:27 (specimen) EST PM EST Resulting Agency Comment Spec In Lab Daphne Shahid MD CHEMISTRY ORDERABLES Performing Organization Address City/State/[place] [address] (ABNORMAL) Basic Metabolic Panel (non-fasting) (07/05/2017 8:20 PM EST) P athologist Signature Glucose Lvl 321 (H) 65 - 199 [facility] mg/dL [facility] LABORATORY Comment: [...] [facility] LAB[facility] Estimated GFR >60 >=60 [facility] LABORATORY Comment: The reported eGFR should be multiplied b y 1.2 for patients. The MDRD is not an appropriate measure o f renal function for patients with body mass extremes or in patients with acute kidney failure. http://[email or web address]/DHnkdep http://LoiLo/DHMCnkf Specimen Anatomical Collection Method Collection Time Receive d Time (Source) Location / / Volume Laterality Blood specimen 07/05/2017 8:20 PM 017 8:27 (specimen) EST PM EST Resulting Agency Comment Spec In Lab Daphne Shahid MD CHEMISTRY ORDERABLES Performing Organization Address City/State/ZIP Code Phon e Number [address] (ABNORMAL) POCT Glucose (07/05/2017 7:32 PM EST) P athologist Signature POC Glucose 296 (H) 65 - 199 [facility] mg/dL [facility] LAB[facility] Comment: [...] City/[facility]/ZIP [place] [address] CARDIAC CATHETERIZATION (07/05/2017 6:47 PM EST) Anatomical Region Laterality Modality Other Specimen (Source) Anatomical Location Collection Method / Collectio n Time Received Time / Laterality Volume Narrative 07/05/2017 7:27 PM EST ?[facility] ? Cardiac Cathete rization/Intervention Report ? Patient Name: Natalya, Gregory ? Procedure Date: 07/05/2017 ? A #: [id number] ? Primary Physician: Clarisa, Jet T ? Case #: [id number] ? File Name: [id number] ? Catheterization Order Number: [id number] ? [facility] ? Final Report [place], [place] ? Patient Name: ? Gregory Natalya ?ID#: ?[id number] ? : ?1945 ? Procedure Date: ? [...] presented with: non -STEMI (w/i 7 days). [place] ?Cardiovascular Society angina c lass was IV. [...] site angio graphy and IABP insertion in analytical laboratory technician. ? Jet Mckenna M.D. ? Electronically Signed by: Jet bunch M.D. ? Report Finalized: 07/05/2017 ??19:23 ? Report Last Ammended: 10/26/2017 ??10:29 ? Procedure Note Jet Mckenna MD - 10/26/2017Formatt ing of this note might be different from the original. [facility] Cardiac Catheterization/Intervention Re port Patient Name: Gregory Hoang Procedure Date: 07/05/2017 A #: [id number] Primary Physician: Jet Mckenna Case #: [id number] File Name: [id number] Catheterization Order Number: [id number] [facility] Final Report [place], [place] Patient Name: Gregory Hoang ID#: [id number] : 1945 Procedure Date: July 05, [...] of this procedure, the patient was designa vald as ASA Class III. Patient Status at Catheterization: The patient presented with: non-STEMI ( w/i 7 days). [place] [employer] angina class was IV. No [...] site angiograph y and IABP insertion in analytical laboratory technician. Jet Mckenna M.D. Electronically Signed [...] Mccollum ? (Age): 1945(72y) Med Rec#: ? [id number] ?Sex: ?M ? Site Loc: ? [facility] ?Ht / Wt: ??173(cm)/86(kg) Pt. Loc: ?CCU ? BSA: ?2 Study Date: ?? 07/05/2017 ?Pt. Type: Inpatient Tape: ? Referring: Daphne Shahid ([id number]) Referring: MANDA ALCANTAR Reading: Blade Preston ([id number]) Clinical Supervisor: Dayami Paula BA, [facility] Diagnosis: *ICD-10-PCS Non-ST elevation (NSTEMI) [...] E-wave Vmax ?0.8 ?m/sec ? MV deceleration wlit097 ?msec ? MV A-wave Vmax ?0.8 ?m/sec [...] ? Mid-Inferior ?Akinetic ? Mid-Inferoseptal ?Hypokinetic ? Equality-Septal ? Akinetic ? Equality-Anterior ? Hypokinetic ? Equality-Lateral ?Hypokinetic ? Equality-Inferior ? Akinetic ? Equality-Tip ?Akinetic ? This report has been electronically sign ed by: _ Blade Preston MD ? 07/06/2017 08 :53:15 [facility] Procedure Note Blade Preston MD - 07/06/2017Formatt ing of this note might be different from the original. Procedure: Transthoracic Echocardiogram Patient: NATALYA MCBRIDE(Age): [birth year]72y) Med Rec#: [id number] Sex: M Site Loc: [facility] Ht / Wt: 173(cm)/86(kg) Pt. Loc: CCU BSA: 2 Study Date: 07/05/2017 Pt. Type: Inpatie nt Tape: Referring: Daphne Shahid ([id number]) Referring: MANDA ALCANTAR Reading: Blade Preston ([id number]) Clinical Supervisor: Dayami Paula BA, [facility] Diagnosis: *ICD-10-PCS Non-ST elevation (NSTEMI) [...] MV E-wave Vmax 0.8 m/sec MV deceleration ifrs503 msec MV A-wave Vmax 0.8 m/sec MV [...] Hypokinetic Mid-Posterolateral Hypokinetic Mid-Inferior Akinetic Mid-Inferoseptal Hypokinetic Equality-Septal Akinetic Equality-Anterior Hypokinetic Equality-Lateral Hypokinetic Equality-Inferior Akinetic Equality-Tip Akinetic This report has been electronically sign ed by: _ Blade Preston MD 07/06/2017 08:53:15 Images reviewed and interpretation verif ied [facility] Cardiac Ultrasound Laboratory Daphne Shahid MD ECHO ORDERABLES Differential, Automated (07/05/2017 4:55 PM EST) athologist Signature Neutrophils % 77.0 % [facility] LABORATORY Neutr Abs (ANC) 5.26 1.70 - [facility] 6.10 [facility] x10(3)/[facility] LABORATORY Lymphocytes % 13.3 % [facility] LABORATORY Lymphocytes Abs 0.9 0.9 - 3.2 [facility] x10(3)/[facility] LABORATORY Monocytes % 8.2 % [facility] LABORATORY Monocyte Abs 0.6 0.3 - 0.9 [facility] x10(3)/[facility] LABORATORY Eosinophils % 0.7 % [facility] Eosinophils Abs 0.0 0.0 - 0.4 [facility] x10(3)/[facility] LABORATORY Basophils % 0.4 % [facility] Basophils Abs 0.0 0.0 - 0.1 [facility] x10(3)/[facility] LABORATORY Immature Gran % 0.40 % [facility] Comment: Immature granulocytes(IG's)percentage an d absolute count will include metamyelocytes, myelocytes, and promyelo cytes. Blood smears from CBCs yielding IG's will be scanned manually for concor danhaley. If this scan disagrees with the automated IG or if promyelocytes are not ed, a manual differential will be performed. Melisa Gran Abs 0.03 0.00 - 0.04 x10(3)/[facility] Specimen Anatomical Collection Method Collection Time Receive d Time (Source) Location / / Volume Laterality Blood specimen 07/05/2017 4:55 PM 017 5:24 (specimen) EST PM EST Resulting Agency Comment Spec In Lab Daphne Shahid MD HEMATOLOGY ORDERABLES Performing Organization Address City/State/[place] [address] (ABNORMAL) Hemogram (07/05/2017 4:55 PM EST) Analysis Performed At Patho logist Time Signature WBC 6.8 4.0 - 9.5 [facility] x10(3)/[facility] LABORATORY RBC 4.67 4.58 - [facility] 5.54 [facility] x10(6)/[facility] LABORATORY Hemoglobin 14.0 13.7 - [facility] 16.5 gm/dL [facility] Hematocrit 41.0 40.5 - [facility] 48.5 % [facility] MCV 87.8 82.9 - [facility] 93.1 [facility]ATORY MCH 30.0 27.5 - [facility] 32.1 pg [facility] MCHC 34.1 32.0 - [facility] 35.7 gm/dL [facility] Platelets 197 145 - 357 [facility] x10(3)/[facility] LABORATORY RDWSD 46.4 (H) 36.0 - [facility] 45.0 [facility] RDWCV 14.5 (H) 11.4 - [facility] 13.8 % [facility] MPV 9.7 7.6 - 12.9 [facility] LABORATORY nRBC % Auto 0.0 % [facility] nRBC Abs Auto 0.000 0.000 - [facility] 0.000 [facility] x10(3)/[facility] LABORATORY Specimen Anatomical Collection Method Collection Time Receive d Time (Source) Location / / Volume Laterality Blood specimen 07/05/2017 4:55 PM 017 5:24 (specimen) EST PM EST Resulting Agency Comment Spec In Lab Daphne Shahid MD HEMATOLOGY ORDERABLES Performing Organization Address City/State/[place] [address] (ABNORMAL) Cardiac Enzymes (LEB/CGP) (07/05/2017 4:55 PM EST) athologist Signature Troponin-T 1.69 (H) 0.00 - [facility] 0.00 ng/mL [facility] [...] additional sample may be indicated. Reference: Third [place] Definition of Myocardial Infarction. Journal of the [place] College of Cardiology 2012;60:1581-98 CK, Total 191 0 - 200 unit/L [facility] Specimen Anatomical Collection Method Collection Time Receive d Time (Source) Location / / Volume Laterality Blood specimen 07/05/2017 4:55 PM 017 5:56 (specimen) EST PM EST Resulting Agency Comment Spec In Lab Daphne Shahid MD CHEMISTRY ORDERABLES Performing Organization Address City/[facility]/ZIP Code Phon e Number [address] (ABNORMAL) pro-Brain Natriuretic Peptide (07/05/2017 4:55 PM EST) athologist Signature ProBNP 1,598 (H) <=125 [facility] pg/mL [facility] Specimen Anatomical Collection Method Collection Time Receive d Time (Source) Location / / Volume Laterality Blood specimen 07/05/2017 4:55 PM 017 5:24 (specimen) EST PM EST Resulting Agency Comment Spec In Lab Daphne Shahid MD CHEMISTRY ORDERABLES Performing Organization Address City/[facility]/ZIP Code Phon e Number [address] Magnesium (07/05/2017 4:55 PM EST) athologist Signature Magnesium 0.78 0.69 - 1.07 [facility] mmol/L [facility] Specimen Anatomical Collection Method Collection Time Receive d Time (Source) Location / / Volume Laterality Blood specimen 07/05/2017 4:55 PM 017 5:24 (specimen) EST PM EST Resulting Agency Comment Spec In Lab Daphne Shahid MD CHEMISTRY ORDERABLES Performing Organization Address City/[facility]/ZIP [facility] [place] [address] (ABNORMAL) Basic Metabolic Panel (non-fasting) (07/05/2017 4:55 PM EST) P athologist Signature Glucose Lvl 230 (H) 65 - 199 [facility] mg/dL [facility] Comment: [...] [facility] Estimated GFR >60 >=60 [facility] Comment: The reported eGFR should be multiplied b y 1.2 for patients. The MDRD is not an appropriate measure o f renal function for patients with body mass extremes or in patients with acute kidney failure. http://LoiLo/DHnkdep http://LoiLo/[facility] Specimen Anatomical Collection Method Collection Time Receive d Time (Source) Location / / Volume Laterality Blood specimen 07/05/2017 4:55 PM 017 5:24 (specimen) EST PM EST Resulting Agency Comment Spec In Lab Daphne Shahid MD CHEMISTRY ORDERABLES Performing Organization Address City/[facility]/ZIP [place] [address] (ABNORMAL) APTT (07/05/2017 4:55 PM EST) P athologist Signature PTT 41 (H) 25 - 35 sec [facility] Comment: The recommended therapeutic range for fu ll dose, unfractionated heparin at [facility] is 80 ? 114 seconds. The [...] Address City/State/ZIP [place] [address] (ABNORMAL) POCT Glucose (07/05/2017 4:53 PM EST) P athologist Signature POC Glucose 208 (H) 65 - 199 [facility] mg/dL [facility] Comment: Supplemental [...] City/[facility]/ZIP [place] [address] EKG 12 Lead (07/05/2017 4:32 PM EST) Component Value Ref Range Test Analysis Performed Pathologis t Method Time At Signature Ventricular rate 97 BPM MUSE SYSTEM Atrial Rate 97 BPM MUSE SYSTEM P-R Interval 148 ms MUSE SYSTEM QRS Duration 96 ms MUSE SYSTEM Q-T Interval 364 ms MUSE SYSTEM QTC Calculated 462 ms MUSE SYSTEM (Bezet) Calculated P Conception 48 degrees MUSE SYSTEM Calculated R Conception -33 degrees MUSE SYSTEM Calculated T Conception 98 degrees MUSE SYSTEM INTERPRETATION Normal sinus [...] Jones RN)0900 (See Alternative - Provider: Em Jonse RN) 0922 (Given - Provider: Myrna Young [...] More Luther RN)195 (Rate/Dose Change - Provider: Elab Valverde RN - Comment: dose running at [...]
Routine documented in this encounter Care Teams Financial Solutions Advisor Relationship Specialty Start Date End Date Lovely Vicente MD PCP - General 04/16/[address] [place] [address] [address] [place] [address] documented as of this encounter
--- OUTSIDE RECORDS SUMMARY | 2022-04-06 10:44 | XMS_ITS | Encounter Summary ---
:1945 [place] [address] Care Team Providers Name Role Phone Lovely Vicente MD Primary Care Provider Reason for Visit Auth/Cert Specialty Diagnoses / Procedures Referred By Contact Refer red To Contact Diagnoses STEMI (ST elevation myocardial infarction) NSTEMI STEMI Procedures CARDIAC CATHETERIZATION NAYE IPI Referral ID Status Reason Start Date Expiration Date Visits Requ ested Visits Authorized [id number] 1 1 Encounter Details Date Type Department Care Team Description 07/07/2017 Anesthesia Event Main Operating Room Yifan Jaime MD [facility] [place] [address] [facility] Ginny Murray MD [facility] [place] [address] [facility] [place] [address] Anesthesia Record Procedure Summary Procedure Name [...] 2342 LDA Cath/EP Sheath 07/05/17; 0606; 8 Lao 07/05/17 0606 by 1118 by (Fr); Right; Femoral Lilliana Park, Yane Cook, RN PIV 07/05/17; 1720; median 07/05/17 1720 by 07/11/17 2355 by vein (underside of arm), Prior, Yanet Maza, Angela Mccurdy, left; 18 gauge; removed CLERICAL SUPERVISOR per policy/procedure; 07/11/17; 2355 Intra-Aortic Balloon [...] Miller, Carrie L, Type: Cuffed; ETT Size: RESEARCH ASSISTANT 8 mm; Santiago Blade: 2; Notes: [...] woulds also Shayy Fuller, RN Willi ams, Doyr made at groin and lower M, RN [...] MD - 07/08/2017 5:08 PM EST [facility] Department of Anesthesiology Post-procedure Note Patient: Don Fatima Procedure Summary Date Anesthesia Start Anesthesia Stop Room / Location 07/07/17 1335 1836 [facility] OR [facility] MAIN OR Procedure Diagnosis Surgeon Responsible Provider @CABG, USING ARTERIAL GRAFT;SINGLE ARTERIAL GRAFT (WRVU 33.75) (N/A Chest); @CABG, TWO VENOUS GRAFTS & ARTERIAL GRAFT (WRVU 7.93) (N/A Chest); ENDOSCOPIC HARVEST VEIN(S) FOR CABG (WRVU 0.31) (Right Leg) (CAD) Yuan Freitas MD Hartman, Gregg S, MD All Anesthesia Providers: Anesthesiologist: Yifan Perez MD Placer Miner: Ginny Murray MD Most Recent Vitals: 07/08/17 [...] SETUP performed by Manny Mcknight MD at [facility] MAIN OR ??? PRO COLONOSCOPY, REMV LESN, SNARE 01/16/2014 COLONOSCOPY, POLYPECTOMY, REMOVAL LESION BY SNARE performed by Nohemi Jaimes MD at [facility] ENDOSCOPY ??? PRO THYROIDECTOMY 03/28/2013 THYROIDECTOMY, TOTAL OR COMPLETE performed by Manny Mcknight MD at [facility] MAIN OR Social History Substance Use Topics [...] Cardiology Zulma Dolan MD [facility] [place], [place] [address] (Wo rk) 05/28/2022 Laboratory Appointment Lab 05/28/2022 Office Visit Cardiology Zulma Dolan MD [facility] [place] [address] [facility] [place] [address] 06/10/2022 Office Visit Dermatology Laura Scherer MD [facility] [address]MAT [place], [place] [address] (Wo rk) documented as of [...] mg documented in this encounter Care Teams Accounting Methods Analyst Relationship Specialty Start Date End Date Lovely Vicente MD PCP - General 04/16/[address] [place] [address] documented as of this encounter
--- OUTSIDE RECORDS SUMMARY | 2022-04-06 10:46 | XMS_ITS | Encounter Summary ---
:1945 Author Organization [facility] [place] [address] Care Team Providers Name Role Phone Lovely Vicente MD Primary Care Provider Reason for Visit Reason Comments Follow-up Encounter Details Date Type Department Care Team Description 06/03/2017 Office Visit Dermatology at [facility] benign nevi; Abdelrahman HOOPER MD History of melanoma; [address] [facility] History of dysplastic nevus; [place] [address] Skin exam for malignant neoplasm [phone] [facility] [place], [place] [address] Social History Tobacco Use Types [...] encounter. Rigoberto Garcia MD Section of Dermatology [facility] documented in this encounter Plan of Treatment Upcoming Encounters Date Type Specialty Care Team Description 05/28/2022 Appointment Cardiology Zulma Dolan MD [facility] [place], [place] [address] (Wo rk) 05/28/2022 Laboratory Appointment Lab 05/28/2022 Office Visit Cardiology Zulma Dolan MD [facility] [place] [address] Liz Poole PA [facility] [place] [address] 06/10/2022 Office Visit Dermatology Laura Scherer MD [facility] [address]MAT [place], [place] [address] (Wo rk) documented as of [...] skin documented in this encounter Care Teams Extension Educator Relationship Specialty Start Date End Date Lovely Vicente MD PCP - General 04/16/15 [facility] [address] [place] [address] documented as of this encounter
--- OUTSIDE RECORDS SUMMARY | 2022-04-06 10:46 | XMS_ITS | Encounter Summary ---
:1945 Author Organization [facility] [place] [address] Care Team Providers Name Role Phone Lovely Vicente MD Primary Care Provider Reason for Visit Reason Comments Skin Check Encounter Details Date Type Department Care Team Description 06/05/2016 Office Visit Dermatology at [facility] istory of melanoma; Abdelrahman HOOPER MD Seborrheic keratosis; [address] [facility] [place] (actinic keratosis); [place] [address] Multiple nevi; [phone] [facility] [address]MATOL[place], [place] [address] Social History Tobacco Use Types [...] Diagnostic, Drum (ACCU-CHEK COMPACT TEST) Strip by [facility].(Non- Drug; Combo Route) route 2 times daily. [...] Zulma Dolan MD [facility] [place], [place] [address] (Wo rk) 05/28/2022 Laboratory Appointment Lab 05/28/2022 Office Visit Cardiology Zulma Dolan MD [facility] [place] [address] Liz Poole PA [facility] [place] [address] 06/10/2022 Office Visit Dermatology Laura Scherer MD [facility] [address] [place], [place] [address] (Wo rk) documented as of this encounter Visit Diagnoses Diagnosis History of melanoma Personal history of malignant melanoma o f skin Seborrheic keratosis Other seborrheic keratosis [place] (actinic keratosis) Actinic keratosis Multiple nevi Benign neoplasm of skin, site unspecifie d Scar Scar condition and fibrosis of skin documented in this encounter Care Teams Concrete Tester Relationship Specialty Start Date End Date Lovely Vicente MD PCP - General 04/16/[address] [place] [address] documented as of this encounter
--- OUTSIDE RECORDS SUMMARY | 2022-04-06 10:46 | XMS_ITS | Encounter Summary ---
:1945 [place] [address] Care Team Providers Name Role Phone Lovely Vicente MD Primary Care Provider Reason for Visit Reason Onset Date Comments Other 12/09/2016 RESULTS Encounter Details Date Type Department Care Team Description 12/09/2016 Telephone Dermatology at [facility] Halima Cadet MD Other (RESULTS) [address] [facility] [address] [facility] [phone] [place], [place] [address] (Wo rk) Social History [...] EDT Spoke with patient's , Kisha (personal patient representative). I advised her Don's pathology results [...] back. She can be reached back at [phone] documented in this encounter Plan of Treatment Upcoming Encounters Date Type Specialty Care Team Description 05/28/2022 Appointment Cardiology Zulma Dolan MD [facility] [address] [place], [place] [address] (Wo rk) 05/28/2022 Laboratory Appointment Lab 05/28/2022 Office Visit Cardiology Zulma Dolan MD [facility] [place] [address] Liz Poole PA [facility] [place] [address] 06/10/2022 Office Visit Dermatology Laura Scherer MD [facility] [address]DERMAT [place], [place] [address] (Wo rk) documented as of this encounter Visit Diagnoses Not on filedocumented in this encounter Care Teams Box Attacher Relationship Specialty Start Date End Date Lovely Vicente MD PCP - General 04/16/[address] [place] [address] documented as of this encounter
--- OUTSIDE RECORDS SUMMARY | 2022-04-06 10:46 | XMS_ITS | Encounter Summary ---
:1945 Author Organization [facility] [place] [address] Care Team Providers Name Role Phone MiyaAngela STACIE Primary Care Provider Encounter Details Date Type Department Care Team Description 11/27/2013 Orders Only Urology at [facility] Blade Smith, Urinary retention [facility] (Primary Dx) [place] [address] UROLOGY DEPT [place], [place] [address] Social History Tobacco Use Types [...] Dolan MD [facility] er Dr [place], [place] [address] (Wo rk) 05/28/2022 Laboratory Appointment Lab 05/28/2022 Office Visit Cardiology Zulma Dolan MD [facility] [place] [address] Liz Poole PA [facility] [place] [address] 06/10/2022 Office Visit Dermatology Laura Scherer MD [facility] ER DR [address] GR[address]DERMAT [place], [place] [address] (Wo rk) documented as [...] Organization Address City/State/[place] [address] CERNER MILLENNIUM documented in this encounter Visit Diagnoses Diagnosis Urinary retention - Primary Retention of urine, unspecified documented in this encounter Care Teams Home Care Assistant Relationship Specialty Start Date End Date Angela Holliday APRN PCP - General 01/25/13 04/15/[address] [place] [address] documented as of this encounter
--- OUTSIDE RECORDS SUMMARY | 2022-04-06 10:46 | XMS_ITS | Encounter Summary ---
:1945 Author Organization [facility] [place] [address] Care Team Providers Name Role Phone Lovely Vicente MD Primary Care Provider Reason for Visit Reason Comments Medication Refill Encounter Details Date Type Department Care Team Description 05/10/2015 Refill Endocrinology at [facility] Rosalind Covarrubias, [facility] [place] [address] [facility] [phone] ENDOCRINOLOGY [place], [place] [address] (Wo rk) Social History Tobacco [...] Zulma Dolan MD [facility] er [address] [place], [place] [address] (Wo rk) 05/28/2022 Laboratory Appointment Lab 05/28/2022 Office Visit Cardiology Zulma Dolan MD [facility] [place] [address] Liz Poole PA [facility] [place] [address] 06/10/2022 Office Visit Dermatology Laura Scherer MD [facility] ER DR [address] GR[address]DERMAT [place], [place] [address] (Wo rk) documented as of this encounter Visit Diagnoses Not on filedocumented in this encounter Care Teams Nuclear Reactor Engineer Relationship Specialty Start Date End Date Lovely Vicente MD PCP - General 04/16/[address] [place] [address] documented as of this encounter
--- OUTSIDE RECORDS SUMMARY | 2022-04-06 10:46 | XMS_ITS | Encounter Summary ---
:1945 Author Organization [facility] [place] [address] Care Team Providers Name Role Phone Lovely Vicente MD Primary Care Provider Reason for Visit Reason Comments Nevus excision dysplastic nevus mi d upper abdomen Encounter Details Date Type Department Care Team Description 12/03/2016 Procedure visit Dermatology at Halima Dubois Dysplastic nevus of Road MD Adrián trunk [address] [facility] [address] [facility] [phone] RD-DERMATOLGY [place] [address] Social History Tobacco Use Types Packs/Day Years [...] Halima Cordero MD during the day at [phone] Nurse: Mira [phone] Amy After 5 PM and on weekends, please call the hospital number , and ask for the Director Corporate Communications crown ironer. documented in this encounter Progress Notes Halima Cordero MD - 12/10/2016 5:41 PM EDT Gwendolyn, Excision shows scar, there is no residual of the severely dysplastic nevus. Please notify patient and check on wound healing. Thank you, DTB Halima Cordero MD - 12/03/2016 3:00 PM EDT Images from the original note were not included. Dermatology Procedure note: Attending: Halima Cordero MD Propeller Engineer: Mira James LPN Referring MD: Rigoberto Garcia [...] to call the clinic or the on-call offset press operator helper over the weekend. ??? Name of Procedure? [...] Zulma Dolan MD [facility] [place], [place] [address] (Wo rk) 05/28/2022 Laboratory Appointment Lab 05/28/2022 Office Visit Cardiology Zulma Dolan [place] [facility] [address] Liz Poole PA [facility] [place] [address] 06/10/2022 Office Visit Dermatology aLura Scherer MD [facility] [address]MAT [place], [place] [address] (Wo rk) documented as of [...] Value Ref Test Analysis Performed At [facility] Method Time Signature Surgical [id number] ?Location: [facility] The signing pathologist has (i) examined [...] Clinical Diagnosis: Dysplastic nevus, see previous pathology [id number] SPECIMEN PROCESSING A - Labeled/Fixative: Mid-upper abdomen, [...] Organization Address City/State/[place] [address] Specimen to Pathology (NON-OR) (12/03/2016 3:31 PM EDT) Specimen Anatomical Collection Method Collection Time Receive d Time (Source) Location / / Volume Laterality AP Specimen 12/03/2016 3:31 PM 7 6:27 EDT PM EDT Narrative [facility] - 12/03/2016 6:27 PM EDT Specimen requisition ordered. ??Separate Pathology report to follow Resulting Agency Comment Spec In Lab Halima Cordero MD PATHOLOGY/CYTOLOGY ORDERABLE S Performing Organization Address City/State/[place] [address] documented in this encounter Visit Diagnoses Diagnosis Dysplastic nevus of trunk Benign neoplasm of skin of trunk, except scrotum documented in this encounter Care Teams Information Systems Specialist Relationship Specialty Start Date End Date Lovely Vicente MD PCP - General 04/16/15 [address] [facility] [address] [facility] [place] [address] documented as of this encounter
--- OUTSIDE RECORDS SUMMARY | 2022-04-06 10:46 | XMS_ITS | Encounter Summary ---
:1945 Author Organization [employer] [place] [address] Care Team Providers Name Role Phone Lovely Vicente MD Primary Care Provider Encounter Details Date Type Department Care Team Description 09/03/2016 Laboratory Appointment Lab at [facility] Hx of [facility] [place] [phone] Social History Tobacco Use Types Packs/Day Years [...] Dolan MD [facility] er Dr [place] [address] (Wo rk) 05/28/2022 Laboratory Appointment Lab 05/28/2022 Office Visit Cardiology Zulma Dolan [place] [facility] [place] [place] [address] Liz Poole PA [facility] [place] [address] 06/10/2022 Office Visit Dermatology Laura Scherer MD [facility] ER DR TEJA GR[address]MAT [place], [place] [address] (Wo [...] AM EST) athologist Signature Thyroglobulin <0.4 <=54.9 [facility] ng/mL [facility] Comment: Interpret with caution. Tg levels may be unreliable and falsely low in TgAb positive samples (TgAb <20 is consistent with TgAb negativity). Serial TgAb measurements may be valuable as a surrog ate tumor marker test and should be considered (aMu LM and [place] Thy roid 2003;13:1-126) [...] than those obtained with T4 withdrawal protocol (Inola BR et al. J Clin Endo Metab 1999;84:6871-7197). Assay performed using the DPC Immulite T [...] Address City/State/ZIP Code Phon e Number [address] TSH (09/03/2016 11:07 AM EST) P athologist Signature TSH 3.01 0.27 - 4.20 [facility] mcIU/mL [facility] Specimen Anatomical Collection Method Collection Time Receive d Time (Source) Location / / Volume Laterality Blood specimen 09/03/2016 11:07 7 (specimen) AM EST 11:22 AM EST Resulting Agency Comment Spec In Lab Luz Prescott MD CHEMISTRY ORDERABLES Performing Organization Address City/[facility]/ZIP [facility] Phon [place] [employer] [address] documented in this encounter Visit Diagnoses Diagnosis Hx of papillary thyroid carcinoma Personal history of malignant neoplasm o f thyroid documented in this encounter Care Teams Shop Router Relationship Specialty Start Date End Date Lvoely Vicente MD PCP - General 04/16/15 [address] [facility] [address] [place] [address] documented as of this encounter
--- OUTSIDE RECORDS SUMMARY | 2022-04-06 10:46 | XMS_ITS | Encounter Summary ---
:1945 Author Organization [facility] [place] [address] Care Team Providers Name Role Phone Angela Sotelo APRN Primary Care Provider Encounter Details Date Type Department Care Team Description 01/16/2014 Surgery [place]ology [place] [facility] Nohemi Jaimes, COLONOSCOPY, [facility] Jorge mcnamara MD [place], [place] [address] [facility] LESION BY SNARE ([facility] [phone] DR Cintron) GASTROENTEROLOGY DEPT. [place], [place] [address] Social History Tobacco Use Types [...] you need to be checked. [facility] [phone] 8a-5p Same Day Endo [phone]-8p Otherwise contact [phone] and ask to speak to the rebrander precision assembler bench Follow up care is a shelton part [...] Jaimes MD - 01/16/2014 9:49 AM EDT [facility] [place] Oper[place] Note Patient Name: Gregory Fatima : [id number] MR#: [id number] Case Date: 01/16/2014 Surgeon: Surgeon(s) and Role: * Nohemi Jaimes MD - Primary Preoperative diagnosis: 5 yr surv. Full procedure note is documented under the Procedure section of eDH. documented in this encounter Plan of Treatment Upcoming Encounters Date Type Specialty Care Team Description 05/28/2022 Appointment Cardiology Zulma Dolan MD [facility] [address] [place] [address] (Wo rk) 05/28/2022 Laboratory Appointment Lab 05/28/2022 Office Visit Cardiology Zulma Dolan MD [facility] [place] [address] Liz Poole PA [facility] [place] [address] 06/10/2022 Office Visit Dermatology Laura Scherer MD [facility] [address] TE[address] [address] (Wo rk) documented as of this encounter [...] Surgical Pathology Report (01/16/2014 9:53 AM EDT) [facility] Method Time Signature Surgical CERNER Pathology ? [facility] Report ? Provider: ?? SHREE, NOHEMI Gonzalez ?Pt. Name: ?? MALICKA RT, GREGORY E ? Acc #: ?[id number] ?Pt. MRN: ?[id number] ? Col Date: ?? 4 ? /Sex: [...] City/State/ZIP Code Phon e Number [place] [phone]OSPITAL LAB[address] RAKESH WALKER Specimen to [...] MD PATHOLOGY/CYTOLOGY ORDERABLE S Performing Organization Address City/[facility]/[place] [address] CERNER MILLENNIUM Specimen to [...] PATHOLOGY/CYTOLOGY ORDERABLE S Performing Organization Address [facility] [place] [address] CERNER MILLENNIUM COLONOSCOPY (01/16/2014 7:25 AM EDT) [facility] gist Method Time Signature COLONOSCOPY [facility] PROVATION Endoscopy Patient Name: Gregory Fatima ? Procedure Date: 01/16/2014 7:25 AM ? N: [id number] ? Date of : 1945 ? Age: 68 ? Order #: [id number] ? Procedure: ? Colonoscopy Indications: ? High [...] Laterality 01/16/2014 7:25 AM EDT Angela Sotelo [facility] ORDERABLES Performing Organization Address City/State/ZIP [...] Routine documented in this encounter Care Teams Punch Press Setter Relationship Specialty Start Date End Date Angela Sotelo APRN PCP - General 01/25/13 04/15/[address] [place] [address] documented as of this encounter
--- OUTSIDE RECORDS SUMMARY | 2022-04-06 10:46 | XMS_ITS | Encounter Summary ---
:1945 Author Organization [facility] [place] [address] Care Team Providers Name Role Phone Angela Holliday APRN Primary Care Provider Encounter Details Date Type Department Care Team Description 04/05/2013 Office Visit Urology at [facility] [address] Social History Tobacco Use Types Packs/Day Years Used Date Former Smoker Alcohol Use Standard Drinks/Week Comments No 0 (1 standard drink = 0.6 oz pure alcoho l) Sex Assigned at Date Recorded Not on file documented as of this encounter Plan of Treatment Upcoming Encounters Date Type Specialty Care Team Description 05/28/2022 Appointment Cardiology Zulma Dolan MD [facility] [place], [place] [address] (Wo rk) 05/28/2022 Laboratory Appointment Lab 05/28/2022 Office Visit Cardiology Zulma Dolan MD [facility] [place] [address] Liz Poole PA [facility] [place] [address] 06/10/2022 Office Visit Dermatology Laura Scherer MD [facility] [address] [place], [place] [address] (Wo rk) documented as of this encounter Visit Diagnoses Not on filedocumented in this encounter Care Teams Rn Digestive Relationship Specialty Start Date End Date Angela Holliday APRN PCP - General 01/25/13 04/15/[address] [place] [address] documented as of this encounter
--- OUTSIDE RECORDS SUMMARY | 2022-04-06 10:46 | XMS_ITS | Encounter Summary ---
:1945 Author Organization [facility] [place] [address] Care Team Providers Name Role Phone Angela Holliday APRN Primary Care Provider Reason for Visit Reason Comments Other Encounter Details Date Type Department Care Team Description 08/01/2013 Telephone Dermatology at [facility] Rigoberto Garcia III, [address] [place] [address] [facility] [phone] [address] [place], [place] [address] (Wo rk) Social History Tobacco [...] Component Value Surgical Pathology Final Report [facility] Provider: RIGOBERTO GARCIA III Pt. Name: DON HOANG Acc #: [id number] Pt. Col Date: 07/31/2013 /Sex: 1945,(68 years),Male Rec Date: 07/31/2013 LOC: [facility] ---Pathologic Diagnosis--- Skin, right abdomen, shave biopsy: Lentiginous compound nevus with moderate atypia of the intraepidermal component, extending to the peripheral specimen edge, ulcerated, associated with spongiosis and superficial perivascular lymphoeosinophilic infiltrate (see Comment). CR-0 08/01/13 BJM 08/01/13 Verified by: Ian STRANGE, PhD, [facility] Dermatopathologist (Electronic Signature) The attending pathologist [...] Cardiology Zulma Dolan MD [facility] [place], [place] [address] (Wo lissa) 05/28/2022 Laboratory Appointment Lab 05/28/2022 Office Visit Cardiology Zulma Dolan MD [facility] [place] [address] Liz Poole PA [facility] [place] [address] 06/10/2022 Office Visit Dermatology Laura Scherer MD [facility] DR [address] MAR[address] [place], [place] [address] (Wo rk) documented as of this encounter Visit Diagnoses Not on filedocumented in this encounter Care Teams Prop Maker Relationship Specialty Start Date End Date Angela Holliday APRN PCP - General 01/25/13 04/15/[address] [place] [address] documented as of this encounter
--- OUTSIDE RECORDS SUMMARY | 2022-04-06 10:46 | XMS_ITS | Encounter Summary ---
:1945 Author Organization [facility] [place] [address] Care Team Providers Name Role Phone Lovely Vicente MD Primary Care Provider Reason for Visit Reason Comments Skin Check Encounter Details Date Type Department Care Team Description 04/16/2015 Follow-Up Dermatology at [facility] x of melanoma of skin; Abdelrahman HOOPER MD Multiple benign nevi [address] [place] [address] [facility]-DER[facility] [place], [place] [address] (Wo rk) Social History Tobacco [...] TEST) Strip by [facility]Non- Drug; Combo Route) route 2 times daily. [...] Garcia MD Section of Dermatology [facility] documented in this encounter Plan of Treatment Upcoming Encounters Date Type Specialty Care Team Description 05/28/2022 Appointment Cardiology Zulma Dolan MD [facility] [place], [place] [address] (Wo rk) 05/28/2022 Laboratory Appointment Lab 05/28/2022 Office Visit Cardiology Zulma Dolan MD [facility] [address] Liz Poole PA [facility] [place] [address] 06/10/2022 Office Visit Dermatology Laura Scherer MD [facility] DR [address] [place], [place] [address] (Wo rk) documented as of this encounter Visit Diagnoses Diagnosis Hx of melanoma of skin Personal history of malignant melanoma o f skin Multiple benign nevi Benign neoplasm of skin, site unspecifie d documented in this encounter Care Teams Provider Education Specialist Relationship Specialty Start Date End Date Lovely Vicente MD PCP - General 04/16/[address] [place] [address] [address] [place] [address] documented as of this encounter
--- OUTSIDE RECORDS SUMMARY | 2022-04-06 10:46 | XMS_ITS | Encounter Summary ---
:1945 Author Organization [place] [address] Care Team Providers Name Role Phone Miya Angela STACIE Primary Care Provider Encounter Details Date Type Department Care Team Description 04/24/2013 Telephone Urology at [facility] Zhen Bowman MD [facility] [place] [address] UROLOGY DEPT [phone] [place], [place] [address] (Wo rk) Social History Tobacco [...] Cardiology Zulma Dolan MD [facility] [place], [place] [address] (Wo rk) 05/28/2022 Laboratory Appointment Lab 05/28/2022 Office Visit Cardiology Zulma Dolan [place] [address] Liz Poole PA [facility] [place] [address] 06/10/2022 Office Visit Dermatology Laura Scherer MD [facility] [address] [place], [place] [address] (Wo rk) documented as of this encounter Visit Diagnoses Not on filedocumented in this encounter Care Teams Machine Adjuster Leader Case Trim Relationship Specialty Start Date End Date Angela Holliday APRN PCP - General 01/25/13 04/15/[address] [place] [address] documented as of this encounter
--- OUTSIDE RECORDS SUMMARY | 2022-04-06 10:46 | XMS_ITS | Encounter Summary ---
:1945 Author Organization [facility] [place] [address] Care Team Providers Name Role Phone Angela Holliday APRN Primary Care Provider Reason for Visit Reason Comments Skin Check Encounter Details Date Type Department Care Team Description 07/31/2013 Follow-Up Dermatology at [facility] eoplasm of unspecified nature of bone, soft tissue, and skin (Primary Dx); Abdelrahman HOOPER MD Seborrheic psoriasis- scalp and ingtergl uteal area; [address] [facility] Atypical nevus [place] [address] [facility] [place], [place] [address] (Wo rk) Social History Tobacco [...] encounter. Rigoberto Albarran MD Section of Dermatology [facility] documented in this encounter Plan of Treatment Upcoming Encounters Date Type Specialty Care Team Description 05/28/2022 Appointment Cardiology Zulma Dolan MD [facility] [address] [place] [address] (Wo lissa) 05/28/2022 Laboratory Appointment Lab 05/28/2022 Office Visit Cardiology Zulma Dolan MD [facility] [place] [address] Liz Poole PA [facility] [place] [address] 06/10/2022 Office Visit Dermatology Laura Scherer MD [facility] DR [address] [place], [place] [address] (Wo rk) Scheduled Orders Name [...] Performed At [facility] gist Range Method Time Signature Surgical CERNER Pathology ? [facility] Report ? Provider: ?? RIGOBERTO ALBARRAN III Pt. Name: ?? GREGORY HOANG ?A ? Acc #: ?[id number] ? Pt. ? Col Date: ?? 07/31/2013 [...] negative controls. ??These ? IHC studies provide doctors hospital pathologist with adjunctive diagnostic information. ? [...] 0.9 x 0.8 x 0.2 cm. ? [facility] ? Provider: ?? DEION III, RIGOBERTO Pt. Name: ?? GREGORY HOANG ?A ? Acc #: ?[id number] ? Pt. ? Col Date: ?? 07/31/2013 [...] [facility]/ZIP Code Phon e Number [address] CERNER MILLENNIUM Specimen to [...] [facility]/[place] [address] CERNER MILLENNIUM documented in this encounter Visit Diagnoses Diagnosis Neoplasm of unspecified nature of bone, soft tissue, and skin - Primary Seborrheic psoriasis- scalp and ingtergl uteal area Other psoriasis Atypical nevus of abdominal wall Benign neoplasm of skin of trunk, except scrotum documented in this encounter Care Teams Dispatch Manager Relationship Specialty Start Date End Date Angela Holliday APRN PCP - General 01/25/13 04/15/[address] [place] [address] documented as of this encounter
--- OUTSIDE RECORDS SUMMARY | 2022-04-06 10:46 | XMS_ITS | Encounter Summary ---
:1945 Author Organization [facility] [place] [address] Care Team Providers Name Role Phone Angela Holliday APRN Primary Care Provider Encounter Details Date Type Department Care Team Description 03/30/2013 Telephone General Surgery at [facility] Cliff Nevarez, [place] [address] Social History Tobacco Use Types Packs/Day [facility] [place], [place] [address] (Wo rk) 05/28/2022 Laboratory Appointment Lab 05/28/2022 Office Visit Cardiology Zulma Dolan MD [facility] [place] [address] [facility] [place] [address] 06/10/2022 Office Visit Dermatology Laura Scherer MD [facility] DR [address] [place], [place] [address] (Wo rk) documented as of this encounter Visit Diagnoses Not on filedocumented in this encounter Care Teams Scrap Dealer Relationship Specialty Start Date End Date Angela Holliday APRN PCP - General 01/25/13 04/15/[address] [place] [address] documented as of this encounter
--- OUTSIDE RECORDS SUMMARY | 2022-04-06 10:46 | XMS_ITS | Encounter Summary ---
:1945 Author Organization [facility] [place] [address] Care Team Providers Name Role Phone MiyaAngela STACIE Primary Care Provider Reason for Visit Reason Onset Date Comments Advice Only 03/31/2013 Encounter Details Date Type Department Care Team Description 03/31/2013 Telephone Urology at [facility] Daniele Trejo III, MD Advice Only [facility] [place] [address] [place] [id number] (Wo rk) Social History Tobacco Use Types [...] Cardiology Zulma Dolan MD [facility] [place], [place] [address] (Wo rk) 05/28/2022 Laboratory Appointment Lab 05/28/2022 Office Visit Cardiology Zulma Dolan MD [facility] [place] [address] Liz Poole PA [facility] [place] [address] 06/10/2022 Office Visit Dermatology Laura Scherer MD [facility] [address] [place], [place] [address] (Wo rk) documented as of this encounter Visit Diagnoses Not on filedocumented in this encounter Care Teams Urologic Surgeon Relationship Specialty Start Date End Date Angela Holliday APRN PCP - General 01/25/13 04/15/[address] [place] [address] documented as of this encounter
--- OUTSIDE RECORDS SUMMARY | 2022-04-06 10:46 | XMS_ITS | Encounter Summary ---
:1945 Author Organization [place] [address] Care Team Providers Name Role Phone MiyaLokeshAngela STACIE Primary Care Provider Reason for Visit Reason Onset Date Comments Post-op Problem 04/05/2013 voiding trial Encounter Details Date Type Department Care Team Description 04/05/2013 Telephone Urology at [facility] Blade Smith, Post-op Problem [facility] (voiding trial) [place] [address] UROLOGY DEPT [place] [address] (Wo rk) Social History Tobacco Use Types [...] Zulma Dolan MD [facility] [place], [place] [address] (Wo rk) 05/28/2022 Laboratory Appointment Lab 05/28/2022 Office Visit Cardiology Zulma Dolan MD [facility] [place] [address] Liz Poole PA [facility] [place] [address] 06/10/2022 Office Visit Dermatology Laura Scherer MD [facility] DR [address] [place], [place] [address] (Wo rk) documented as of this encounter Visit Diagnoses Not on filedocumented in this encounter Care Teams Expert Witness Relationship Specialty Start Date End Date Angela Holliday APRN PCP - General 01/25/13 04/15/[address] [place] [address] documented as of this encounter
--- OUTSIDE RECORDS SUMMARY | 2022-04-06 10:46 | XMS_ITS | Encounter Summary ---
:1945 Author Organization [facility] [place] [address] Care Team Providers Name Role Phone MiyaLokeshAngela STACIE Primary Care Provider Encounter Details Date Type Department Care Team Description 04/04/2013 Orders Only General Surgery at Manny Mcknight thyroid [facility] Eliseo carcinoma (Primary Dx) [facility] [place] [address] GENERAL SURGERY [phone] [place], [place] [address] Social History Tobacco Use [...] Dolan MD [facility] er [place], [place] [address] (Wo rk) 05/28/2022 Laboratory Appointment Lab 05/28/2022 Office Visit Cardiology Zulma Dolan MD [facility] [place] [address] Liz Poole PA [facility] [place] [address] 06/10/2022 Office Visit Dermatology Laura Scherer MD [facility] [address] [place], [place] [address] (Wo rk) documented as of this encounter Visit Diagnoses Diagnosis Papillary thyroid carcinoma - Primary Malignant neoplasm of thyroid gland documented in this encounter Care Teams Multimedia Artist Relationship Specialty Start Date End Date Angela Holliday APRN PCP - General 01/25/13 04/15/[address] [place] [address] documented as of this encounter
--- OUTSIDE RECORDS SUMMARY | 2022-04-06 10:46 | XMS_ITS | Encounter Summary ---
:1945 Author Organization [facility] [place] [address] Care Team Providers Name Role Phone Angela Holliday APRN Primary Care Provider Reason for Visit Reason Onset Date Comments Other 03/30/2013 blood in catheter ba g Encounter Details Date Type Department Care Team Description 03/30/2013 Telephone General Surgery at [facility] Janneth Sharma, Other (blood in [facility] RN catheter bag) [place] [address] Social History Tobacco Use Types Packs/Day Years Used Date Former Smoker Alcohol Use Standard Drinks/Week Comments No 0 (1 standard drink = 0.6 oz pure alcoho l) Sex Assigned at Date Recorded Not on file documented as of this encounter Miscellaneous Notes Telephone Encounter - Janneht Sharma, RN - 03/30/2013 1:52 PM EDT [...] Cardiology Zulma Dolan MD [facility] [place], [place] [address] (Wo rk) 05/28/2022 Laboratory Appointment Lab 05/28/2022 Office Visit Cardiology Zulma Dolan MD [facility] [place] [address] Liz Poole PA [facility] [place] [address] 06/10/2022 Office Visit Dermatology Laura Scherer MD [facility] DR [address] [place], [place] [address] (Wo rk) documented as of this encounter Visit Diagnoses Not on filedocumented in this encounter Care Teams Tool Room Lathe Operator Relationship Specialty Start Date End Date Angela Holliday APRN PCP - General 01/25/13 04/15/[address] [place] [address] documented as of this encounter
--- OUTSIDE RECORDS SUMMARY | 2022-04-06 10:46 | XMS_ITS | Encounter Summary ---
:1945 Author Organization [facility] [place] [address] Care Team Providers Name Role Phone Som Holliday APRN Primary Care Provider Encounter Details Date Type Department Care Team Description 04/11/2014 Procedure visit Gastroenterology at [facility], CONV Esophageal reflux [facility] Luz Winchester RN (Primary Dx) [place] [address] Social History Tobacco Use Types Packs/Day Years Used Date Former Smoker Alcohol Use Standard Drinks/Week Comments No 0 (1 standard drink = 0.6 oz pure alcoho l) Sex Assigned at Date Recorded Not on file documented as of this encounter Progress Notes Adalid Can MD - 04/13/2014 3:43 PM EDT ESOPHAGEAL MANOMETRY Don Fatima Male, 69 yrs, 1945 PCP: SOM HOLLIDAY RN PROVIDER RELATIONS: NONE STUDY DATE: 04/11/14 PROVIDER: Adalid Can, [place] ([id number]) INDICATION Reflux; preoperative evaluation. METHODS Stationary esophageal manometry was performed with the [employer] esophageal motility system utilizing the Polygram software [...] of the esophagus. Adalid Can, PhD, MD personal fitness trainer, [facility] [employer] Section of Gastroenterology and Hepatology Formerly [facility] [place] [address] V: [phone] F: [phone] [facility]/gabriela CC/EC: PCP - staff msg copy 04/13/14 Henrique Taylor MD - fax copy 04/13/14 Luz Keller RN - 04/11/2014 8:14 AM EDT Esophageal manometry performed without difficulty and Was well tolerated. documented in this encounter Plan of Treatment Upcoming Encounters Date Type Specialty Care Team Description 05/28/2022 Appointment Cardiology Zulma Dolan MD [facility] [place], [place] [address] (Wo rk) 05/28/2022 Laboratory Appointment Lab 05/28/2022 Office Visit Cardiology Zulma Dolan MD [facility] [place] [address] Liz Poole PA [facility] [place] [address] 06/10/2022 Office Visit Dermatology Laura Scherer MD [facility] [address] [place], [place] [address] (Wo rk) documented as of this encounter Visit Diagnoses Diagnosis Esophageal reflux - Primary documented in this encounter Care Teams Benefit Director Relationship Specialty Start Date End Date Som Holliday APRN PCP - General 01/25/13 04/15/[address] [place] [address] documented as of this encounter
--- OUTSIDE RECORDS SUMMARY | 2022-04-06 10:46 | XMS_ITS | Encounter Summary ---
:1945 Author Organization [facility] [place] [address] Care Team Providers Name Role Phone Lovely Vicente MD Primary Care Provider Reason for Visit Reason Onset Date Comments Medication Refill 12/24/2016 Encounter Details Date Type Department Care Team Description 12/24/2016 Refill Endocrinology at [facility] Luz Stallings MD [facility] [place] [address] ENDOCRINOLOGY DEPT [phone] [place], [place] [address] (Wo rk) Social History Tobacco [...] Zulma Dolan MD [facility] [place] [address] [place] [address] (Wo rk) 05/28/2022 Laboratory Appointment Lab 05/28/2022 Office Visit Cardiology Zulma Dolan MD [facility] [place] [address] Liz Poole PA [facility] [place] [address] 06/10/2022 Office Visit Dermatology Laura Scherer MD [facility] [address] [place], [place] [address] (Wo rk) documented as of this encounter Visit Diagnoses Not on filedocumented in this encounter Care Teams Maori Physiotherapist Relationship Specialty Start Date End Date Lovely Vicente MD PCP - General 04/16/[address] [place], [place] [address] documented as of this encounter
--- OUTSIDE RECORDS SUMMARY | 2022-04-06 10:46 | XMS_ITS | Encounter Summary ---
:1945 Author Organization [facility] [place] [address] Care Team Providers Name Role Phone Angela Holliday APRN Primary Care Provider Encounter Details Date Type Department Care Team Description 04/30/2014 Orders Only Endocrinology at [facility] Albertina Palmer, Thyroid cancer [facility] Jorge Boyer MD (Primary Dx) [place] [address] [facility] [phone] CENTER ENDOCRINOLOGY DEPT [place], [place] [address] Social History Tobacco Use Types [...] Dolan MD [facility] er [address] [place], [place] [address] (Wo rk) 05/28/2022 Laboratory Appointment Lab 05/28/2022 Office Visit Cardiology Zulma Dolna [place] [address] Liz Poole PA [facility] [place] [address] 06/10/2022 Office Visit Dermatology Laura Scherer MD [facility] ER [address] [place], [place] [address] (Wo rk) documented as of this encounter Visit Diagnoses Diagnosis Thyroid cancer - Primary Malignant neoplasm of thyroid gland documented in this encounter Care Teams Stator Winder Relationship Specialty Start Date End Date Angela Holliday APRN PCP - General 01/25/13 04/15/[address] [place] [address] documented as of this encounter
--- OUTSIDE RECORDS SUMMARY | 2022-04-06 10:46 | XMS_ITS | Encounter Summary ---
:1945 Author Organization [place] [address] Care Team Providers Name Role Phone Lovely Vicente MD Primary Care Provider Encounter Details Date Type Department Care Team Description 07/05/2017 Telephone Cardiology Kim Galindo MD [facility] [place] [address] CARDIOLOGY DEPT [phone] [place], [place] [address] (Wo rk) Social History Tobacco [...] 1:54pm Referring Provider: Ivania CROWELL) Patient Location: [facility] Presenting Symptoms per OSH: 72 year [...] infarct and elevated troponin, transport patient to [facility] for cath this afternoon and arrhythmia monitoring. Kim Galindo MD Glass Cylinder Flanger documented in this encounter Plan of Treatment Upcoming Encounters Date Type Specialty Care Team Description 05/28/2022 Appointment Cardiology Zulma Dolan MD [facility] [address] [place], [place] [address] (Wo rk) 05/28/2022 Laboratory Appointment Lab 05/28/2022 Office Visit Cardiology Zulma Dolan MD [facility] [place] [address] Liz Poole PA [facility] [place] [address] 06/10/2022 Office Visit Dermatology Laura Scherer MD [facility] [address] [place], [place] [address] (Wo rk) documented as of this encounter Visit Diagnoses Not on filedocumented in this encounter Care Teams College Basketball Coach Relationship Specialty Start Date End Date Lovely Vicente MD PCP - General 04/16/[address] [place] [address] documented as of this encounter
--- OUTSIDE RECORDS SUMMARY | 2022-04-06 10:46 | XMS_ITS | Encounter Summary ---
:1945 Author Organization [facility] [place] [address] Care Team Providers Name Role Phone MiyaLokeshAngela STACIE Primary Care Provider Encounter Details Date Type Department Care Team Description 01/16/2014 Hospital Encounter Gastroenterology at [facility] Nohemi Swann, [facility] [place] [address] [facility] [phone] [facility] [place], [place] [address] Social History Tobacco Use [...] you need to be checked. [facility] [phone] 8a-5p Same Day Endo [phone] 7a-8p Otherwise contact [phone] and ask to speak to the riveter portable machine professor of communication and writing Follow up care is a shelton part [...] 01/16/2014 9:49 AM EDT [facility] Operative Note Patient Name: Gregory Fatima : [id number] MR#: [id number] Case Date: 01/16/2014 Surgeon: Surgeon(s) and Role: * Nohemi Swann MD - Primary Preoperative diagnosis: 5 yr surv. Full procedure note is documented under the Procedure section of eDH. documented in this encounter Plan of Treatment Upcoming Encounters Date Type Specialty Care Team Description 05/28/2022 Appointment Cardiology Zulma Dolan MD [facility] [address] [place], [place] [address] (Wo rk) 05/28/2022 Laboratory Appointment Lab 05/28/2022 Office Visit Cardiology Zulma Dolan MD [facility] [place] [address] Liz Poole PA [facility] [place] [address] 06/10/2022 Office Visit Dermatology Laura Scherer MD [facility] [address] [place], [place] [address] (Wo rk) documented as of this encounter [...] Surgical Pathology Report (01/16/2014 9:53 AM EDT) [facility] Method Time Signature Surgical CERNER Pathology ? [facility] Report ? Provider: ?? NOHEMI SWANN ?Pt. Name: ?? MALICKEliseo RT, GREGORY E ? Acc #: ?[id number] ?Pt. MRN: ?[id number] ? Col Date: ?? 4 ? /Sex: [...] Organization Address City/State/ZIP Code Phon e Number [place] [id number] RAKESH WALKER Specimen to [...] Address City/State/[place] [address] [facility] Specimen to Pathology (surgical or derm) [...] [facility]/[place] [address] CERNER MILLENNIUM COLONOSCOPY (01/16/2014 7:25 AM EDT) [facility] gist Method Time Signature COLONOSCOPY [facility] [place] Endoscopy Patient Name: Gregory Fatima ? Procedure Date: 01/16/2014 7:25 AM ? N: [id number] ? Date of : 1945 ? Age: 68 ? Order #: [id number] ? Procedure: ? Colonoscopy Indications: ? High risk colon cancer surveillance : ? 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 dm on metformin with bs ~ 110 this ? am,s/p melanoma years ago, os a, ? goiter s/p surgery, [facility] Providers: ? Nohemi Swann MD, Blanca [...] Laterality 01/16/2014 7:25 AM EDT Angela Sotelo CUSTOMER SERVICES MANAGER GENERAL SURGICAL ORDERABLES Performing Organization Address City/State/ZIP Code Phon e Number [place] documented in this encounter Visit Diagnoses Not on filedocumented in this encounter Active and Recently Administered Medications Times are shown in EDT. PRN Medication Order 01/14/2014 01/15/2014 01/16/2014 meperidine (PF) (DEMEROL) 100 mg/mL carpuject (CANCELED) 0856 (Given - Provider: Blanca Samuel RN)0902 (Given - Provider: Blanca Samuel, VAMSI)0911 (Given - Provider: Blnaca Samuel, VAMSI) ONCE PRN, Starting 01/16/14 at [...] Routine documented in this encounter Care Teams Analytic Manager Relationship Specialty Start Date End Date Angela Sotelo APRN PCP - General 01/25/13 04/15/[address] [place] [address] documented as of this encounter
--- OUTSIDE RECORDS SUMMARY | 2022-04-06 10:46 | XMS_ITS | Encounter Summary ---
:1945 Author Organization [facility] [place] [address] Care Team Providers Name Role Phone Lovely Vicente MD Primary Care Provider Reason for Visit Reason Onset Date Comments Referral 10/30/2015 Urgent referral for mac on [address] Encounter Details Date Type Department Care Team Description 10/30/2015 Telephone Ophthalmology at [facility] C Jayson Ruiz Referral (Urgent [facility] MD Grabiel referral for mac on [facility] [address] [place]) [place] [address] OPHTHALMOLOGY DEPT. [phone] [place], [place] [address] (Wo rk) Social History [...] Dolan MD [facility] [address] [place], [place] [address] (Wo rk) 05/28/2022 Laboratory Appointment Lab 05/28/2022 Office Visit Cardiology Zulma Dolan MD [facility] [place] [address] Liz Poole PA [facility] [place] [address] 06/10/2022 Office Visit Dermatology Laura Scherer MD [facility] [address] [place], [place] [address] (Wo rk) documented as of this encounter Visit Diagnoses Not on filedocumented in this encounter Care Teams Statistical Machine Mechanic Relationship Specialty Start Date End Date Lovely Vicente MD PCP - General 04/16/[address] [place], [place] [address] documented as of this encounter
--- OUTSIDE RECORDS SUMMARY | 2022-04-06 10:46 | XMS_ITS | Encounter Summary ---
:1945 Author Organization [facility] [place] [address] Care Team Providers Name Role Phone Lovely Vicente MD Primary Care Provider Reason for Visit Reason Onset Date Comments Pre Procedure Call 12/02/2016 Encounter Details Date Type Department Care Team Description 12/02/2016 Telephone Dermatology at [facility] Mira James LPN Pre Procedure Call [address] [place] [address] Social History Tobacco Use Types Packs/Day [...] Description 05/28/2022 Appointment Cardiology Zulma Dolan MD [facility] [place], [place] [address] (Wo lissa) 05/28/2022 Laboratory Appointment Lab 05/28/2022 Office Visit Cardiology Zulma Dolan MD [facility] [place] [address] Liz Poole PA [facility] [place] [address] 06/10/2022 Office Visit Dermatology Laura Scherer MD [facility] [address] [place], [place] [address] (Wo rk) documented as of this encounter Visit Diagnoses Not on filedocumented in this encounter Care Teams Web Applications Architect Relationship Specialty Start Date End Date Lovely Vicente MD PCP - General 04/16/[address] [place] [address] documented as of this encounter
--- OUTSIDE RECORDS SUMMARY | 2022-04-06 10:46 | XMS_ITS | Encounter Summary ---
:1945 Author Organization [facility] [place] [address] Care Team Providers Name Role Phone Lovely Vicente MD Primary Care Provider Reason for Visit Reason Onset Date Comments Medication Refill 06/19/2016 Encounter Details Date Type Department Care Team Description 06/19/2016 Refill Endocrinology at [facility] Luz Stallings MD [facility] [place] [address] ENDOCRINOLOGY DEPT [phone] [place], [place] [address] (Wo rk) Social History [...] MD [facility] er [address] [place] [address] (Wo rk) 05/28/2022 Laboratory Appointment Lab 05/28/2022 Office Visit Cardiology Zulma Dolan [place] [address] Liz Poole PA [facility] [place] [address] 06/10/2022 Office Visit Dermatology Laura Scherer MD [facility] [address] [place], [place] [address] (Wo rk) documented as of this encounter Visit Diagnoses Not on filedocumented in this encounter Care Teams Pharmacy Care Coordinator Relationship Specialty Start Date End Date Lovely Vicente MD PCP - General 04/16/[address] [place], [place] [address] documented as of this encounter
--- OUTSIDE RECORDS SUMMARY | 2022-04-06 10:46 | XMS_ITS | Encounter Summary ---
:1945 Author Organization [facility] Address [facility] [place] [address] Care Team Providers Name Role Phone Lovely iVcente MD Primary Care Provider Reason for Visit Reason Comments Skin Check Encounter Details Date Type Department Care Team Description 11/05/2015 Office Visit Dermatology at [facility] benign nevi; Abdelrahman HOOPER MD Lentigines; [address] [facility] History of melanoma; [place] [address] Skin exam for malignant neoplasm [phone] [facility] [place], [place] [address] Social History Tobacco Use Types [...] Diagnostic, Drum (ACCU-CHEK COMPACT TEST) Strip by [facility].(Non- Drug; Combo Route) route 2 times daily. [...] the presence of Dr. Garcia.: GINNY CHRISTIANSEN PORT PATROL OFFICER and Judit Cruz, Clinical Scribe I performed the above scribed service and agree with the accuracy of the documentation in this encounter. Rigoberto Garcia MD Section of Dermatology [facility] documented in this encounter Plan of Treatment Upcoming Encounters Date Type Specialty Care Team Description 05/28/2022 Appointment Cardiology Zulma Dolan MD [facility] [address] [place], [place] [address] (Wo rk) 05/28/2022 Laboratory Appointment Lab 05/28/2022 Office Visit Cardiology Zulma Dolan MD [facility] [place] [address] Liz Poole PA [facility] [place] [address] 06/10/2022 Office Visit Dermatology Laura Scherer MD [facility] [address] [place], [place] [address] (Wo rk) documented as of this encounter Visit Diagnoses Diagnosis Multiple benign nevi Benign neoplasm of skin, site unspecifie d Lentigines Other dyschromia History of melanoma Personal history of malignant melanoma o f skin Skin exam for malignant neoplasm Screening for malignant neoplasm of the skin documented in this encounter Care Teams Building Construction Supervisor Relationship Specialty Start Date End Date Lovely Vicente MD PCP - General 04/16/[address] [facility] [address] [place] [address] (work) documented as of this encounter
--- OUTSIDE RECORDS SUMMARY | 2022-04-06 10:46 | XMS_ITS | Encounter Summary ---
:1945 Author Organization [facility] [place] [address] Care Team Providers Name Role Phone Lovely Vicente MD Primary Care Provider Reason for Visit Reason Comments Skin Lesion Encounter Details Date Type Department Care Team Description 11/24/2016 [facility] uncertain behavior of skin; Road IIIMD Pigmented skin lesion of uncertain natur e; [address] [facility] [place] of [place] [address] [facility] SIM[facility]N-DERMATOLGY [place], [place] [address] Social History Tobacco Use Types [...] or concerns, please call the office at [phone]. If it is after 5PM, or a holiday or weekend, please call [phone] and ask for the Inorganic Chemistry Professor on-call. documented in this encounter Progress Notes [...] 71 y.o. year old male.Established patient of [employer]. Last seen 06/05/16. Here today for new [...] Zulma Dolan MD [facility] er [place] [address] (Wo rk) 05/28/2022 Laboratory Appointment Lab 05/28/2022 Office Visit Cardiology Zulma Dolan MD [facility] [place] [address] Liz Poole PA [facility] [place] [address] 06/10/2022 Office Visit Dermatology Laura Scherer MD [facility] ER [address]-DERMAT [place], [place] [...] Hospital gist Range Method Time Signature Surgical [id number] ?Location: [facility] Report The signing [...] Code [place] [address] Specimen to Pathology (NON-OR) [...] City/State/[place] [address] documented in this encounter Visit Diagnoses Diagnosis Neoplasm of uncertain behavior of skin Pigmented skin lesion of uncertain natur e History of melanoma Personal history of malignant melanoma o f skin documented in this encounter Care Teams Geospatial Program Management Officer Relationship Specialty Start Date End Date Lovely Vicente MD PCP - General 04/16/[address] [place] [address] documented as of this encounter
--- OUTSIDE RECORDS SUMMARY | 2022-04-06 10:46 | XMS_ITS | Encounter Summary ---
:1945 [place] [address] Care Team Providers Name Role Phone Lovely Vicente MD Primary Care Provider Reason for Visit Auth/Cert Specialty Diagnoses / Procedures Referred By Contact Refer red To Contact Diagnoses STEMI (ST elevation myocardial infarction) NSTEMI STEMI Procedures CARDIAC CATHETERIZATION NAYE IPI Referral ID Status Reason Start Date Expiration Date Visits Requ ested Visits Authorized [id number] 1 1 Encounter Details Date Type Department Care Team Description 07/05/2017 Surgery Gravel Machine Operator Jet Guan, CARDIAC CATHETERIZATION [facility] [place] [address] CARDIOLOGY DEPT. [phone] [place], [place] [address] (Wo rk) Social History Tobacco [...] this encounter Discharge Summaries Martha Teague S, BENCH MECHANIC - 07/14/2017 9:38 AM EST Inpatient - [...] , @ 1:20p Patient to follow-up with Rouge Presser/heart failure team in one week. An appointment will be made for you. You may call [phone] Patient to follow-up with Cardiac Surgery, Dr. Yuan Webber, in ~ 4 weeks with CXR, EKG. Inpatient Provider Contact Information: [facility] Section of [place]iac [place] [facility] [place] [address] FAX [phone] Discharge Diagnoses (Hospital Problems) Primary Diagnoses: CAD [...] performed by Manny Mcknight MD at [facility] OR ??? PRO CABG, ARTERIAL, SINGLE N/A 07/07/2017 @CABG, USING ARTERIAL GRAFT;SINGLE ARTERIAL GRAFT (WRVU 33.75) performed by Yuan Webber MD at [facility] OR ??? PRO CABG, ARTERY-VEIN, TWO N/A 07/07/2017 @CABG, TWO VENOUS GRAFTS & ARTERIAL GRAFT (WRVU 7.93) performed by Yuan Webber MD at [facility] OR ??? PRO COLONOSCOPY, REMV LESN, SNARE 01/16/2014 COLONOSCOPY, POLYPECTOMY, REMOVAL LESION BY SNARE performed by Nohemi Jaimes MD at [facility] ENDOSCOPY ??? PRO ENDOSCOPY W/VIDEO-ASST VEIN HARVEST, CABG Right 07/07/2017 ENDOSCOPIC HARVEST VEIN(S) FOR CABG (WRVU 0.31) performed by Yuan Webber MD at [facility] OR ??? PRO THYROIDECTOMY 03/28/2013 THYROIDECTOMY, TOTAL OR COMPLETE performed by Manny Mcknight MD at [facility] OR Prior To Admission Medications Prescriptions Prior to Admission Medication Sig Dispense Refill Last Dose ??? levothyroxine (SYNTHROID) 175 mcg Tablet Take 1 tablet by mouth daily. 90 tablet 3 07/05/2017 [id number] ??? ascorbic acid, vitamin C, (VITAMIN C) [...] Hospital Course: Gregory Hoang was admitted to [facility] on 07/05/2017 via the Cardiology Service. During his hospital course, he was taken emergently to the lab asst for an ongoing STEMI. An IABP was [...] not take or discontinue any prescription or pzeg-pkt-cwpnnrw medications without asking your doctor or pharmacist [...] to have your insulin doses adjusted. [facility] Endocrine clinic office Discharge Instructions: Call your doctor if: You have a fever of greater than 101 degrees, shaking chills, if you develop redness or drainage from your incision sites, or if you have questions. Please call your surgeon's office if you have any discharge or drainage from your chest incision. Your surgeon, Dr. Yuan Webber and/or the Cardiac Surgery Physician Client Integration Manager Team may be reached at . [...] Dr. Yuan Webber. You may use a Hickman Track or treadmill but avoid any pulling [...] friends, go to a movie, go to yarsanism, etc. Heavy activities: No hunting, skiing, jogging, snow shoveling, snowmobiling, lawn mowing, swimming, golf or tennis until after your return appointment with the surgeon. Do not ride motorcycles, [employer] tractors or horses. Avoid the use of [...] should resume a low fat, low cholesterol, [place] Heart Association Diet/Diabetic diet. Driving: No driving [...] , @ 1:20p Patient to follow-up with Rouge Presser/heart failure team in one week. Appointment will be made for you. You may call [phone] Patient to follow-up with Cardiac Surgery, Dr. [...] LAB, THREE L Lab 3L [facility] [phone] 09/07/2017 4:00 PM Luz Prescott MD Endocrinology at [place] [phone] Future Orders Complete By Expires EKG 12 Lead [EKG1 Custom] 08/14/2017 02/13/2018 Process Instructions: Scheduling Instructions: Questions: Which DH location will this be performed?: [place] Is a rhythm strip needed?: No If EKG Reason is Pre-op Evaluation, indicate diagnosis for surgery.: XR Chest PA & Lateral (Generic) [[id number] Custom] 08/14/2017 02/13/2018 Process Instructions: Scheduling Instructions: Questions: Where will study be performed?: [place] [facility] Portable exam?: Reason for exam and clinical history: CABG x 3 Other pertinent information: Stat read required?: Date of injury if applicable: Requested Time: Referral to Cardiac Rehab [[id number] Custom] As directed Process Instructions: If no progress note charted, please enter Clinical details in comments. Scheduling Instructions: Questions: My question or request is: s/p CABG. Cardiac rehab at [facility] Referral to Home Health - at DISCHARGE [KAM9393 CPT(R)] As directed Process Instructions: Scheduling Instructions: Comments: DOCUMENTATION FOR VNA SERVICES (INCLUDING THOSE PATIENTS WITH MEDICARE COVERAGE REQUIRING HOME VNA SERVICES AND/OR HOSPICE SERVICES) PATIENT'S LOCATION: Gregory Hoang [address] [place] [address] [place] [address] (home) Telephone Information: Assistant Administrator's Name: self In discussion with the attending physician, it is certified that this patient is under their care and that they, or a Nurse Practitioner, or Physician Client Integration Manager who is working directly with them, [...] Munguia ([facility] [place] [employer]-is in [place] PHONE: [phone] FAX: [phone] RN orders: Cardiopulmonary assessment, incisional assessment, assess vital signs, assessment of rehab progress, medication management and effectiveness, home safety evaluation. Please draw INR if indicated and send result to:Dr Vicente [phone] PT ORDERS: Continue rehab for endurance, gait stability and strength with mobility and transfers. Home safety evaluation. Home exercise program if appropriate. Start of Care Date:24-48 hours after discharge SPECIAL INSTRUCTIONS: For any follow up questions, needs, or issues please call the Cardiac Surgery Office at [phone] FOR MEDICARE ONLY: (please delete this section [...] 07/17/2017 Signed: Martha Teague APRN [facility] Section of Cardiac Surgery [facility] [place] [address] FAX [phone] Date: 07/14/2017 CC: MD Ivania Cr Betsy, PA [address] [place] [phone] documented in this encounter Discharge Instructions Discharge [...] to have your insulin doses adjusted. [facility] Endocrine clinic office Patient InstructionsStMartha mcdonald APRN [...] not take or discontinue any prescription or anof-arb-cfwkqyh medications without asking your doctor or pharmacist [...] to have your insulin doses adjusted. [facility] Endocrine clinic office ? Discharge Instructions: ?? Call your doctor if: You have a fever of greater than 101 degrees, shaking chills, if you develop redness or drainage from your incision sites, or if you have questions. Please call your surgeon's office if you have any discharge or drainage from your chest incision. Your surgeon, Dr. Yuan Webber and/or the Cardiac Surgery Physician Client Integration Manager Team may be reached at . [...] Dr. Yuan Webber. You may use a Hickman Track or treadmill but avoid any pulling [...] friends, go to a movie, go to yarsanism, etc. ?? Heavy activities: No hunting, skiing, jogging, snow shoveling, snowmobiling, lawn mowing, swimming, golf or tennis until after your return appointment with the surgeon. Do not ride motorcycles, [employer] tractors or horses. Avoid the use of [...] should resume a low fat, low cholesterol, [place] Heart Association Diet/Diabetic diet. ?? Driving: No [...] @ 1:20p ?? Patient to follow-up with Rouge Presser/heart failure team in one week. An appointment has been made for you, you can call [phone] ?? Patient to follow-up with Cardiac Surgery, [...] LAB, THREE L Lab 3L [facility] [phone] ?? 09/07/2017 4:00 PM Luz Prescott MD Endocrinology at [place] [phone] Future Orders Complete By Expires ?? EKG 12 Lead [EKG1 Custom] 08/14/2017 02/13/2018 ?? Process Instructions: ? Scheduling Instructions: ? Questions: ? Which location will this be performed?: [place] ?? Is a rhythm strip needed?: No ?? If EKG Reason is Pre-op Evaluation, indicate diagnosis for surgery.: ?? XR Chest PA & Lateral (Generic) [[id number] Custom] 08/14/2017 02/13/2018 ?? Process Instructions: ? Scheduling Instructions: ? Questions: ? Where will study be performed?: [place] [facility] ?? Portable exam?: ?? Reason for exam and clinical history: CABG x 3 ?? Other pertinent information: ?? Stat read required?: ?? Date of injury if applicable: ?? Requested Time: ?? Referral to Cardiac Rehab [XEB537 Custom] As directed ? Process Instructions: ?? 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 A letter describing our affiliations was reviewed with them and theywere educated about their right to choose where referrals are placed. Patient requests referral to [facility]. PHONE: [phone] FAX: [phone] Expected date of discharge: 07/14 Referral routed to the Outsole Cementer for matching with agency/vendor and to provide [...] to have your insulin doses adjusted. [facility] Endocrine clinic office Kathie Carrera APRN [facility] Endocrinology Diabetes Management Pager [phone] minutes of this 35 minute visit was spent with the patient in counseling on diabetes and treatment plan, reviewing all glucose and insulin data as well as relevant laboratory results with the patient, and coordination of care on the inpatient unit including nursing and primary team. 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 A letter describing our affiliations was reviewed with them and theywere educated about their right to choose where referrals are placed. Patient requests referral to : Yasmani Munguia ([facility] [place] [facility]-is in [place]) PHONE: [phone] FAX: [phone]. Expected date of discharge: 07/14/17 Referral routed to the Outsole Cementer for matching with agency/vendor and to provide [...] #6 s/p CABG X3. FSBG 80 at [place], reports no symptoms but did drink some [...] continue to follow Katerin Azul APRN [facility] Endocrinology Diabetes Management Pager [phone] minutes of this 25 minute visit [...] of infiltration/extravasation Discussed plan of care with DEEP WELL CONTRACTOR and RN. Elevate exrtemity and apply intermittent Warm compresses. Name of MD contacted Dr. Shaw Brown 07/13/2017 @ 0655 Name of RN contacted Ale Rangel RN Name of Pharmacist if consulted NA Name of Plastics MD ( if consulted) NA (Mandatory photo for infiltrations/ extravasations scoring a stage 2 or greater, but recommended forstage 1)( include measuring tape and identifier in the photo) FLAT SORTER PROCESSOR CARING FOR THIS PATIENT WILL CONTINUE TO [...] measuring tape and identifier in the photo) FLAT SORTER PROCESSOR CARING FOR THIS PATIENT WILL CONTINUE TO [...] to both infiltrates addressed by this technical writer.All of Mr. Hoang's responses were entirely appropriate. Images of infiltrates attached here. Martha Sharp APRN - 07/13/2017 8:01 AM EST Cardiac Surgery Progress Note: ID: [id number] 72 year old male POD#6 s/p CABGx3 [...] discharge. ?? I have met with the patient/agricultural sales representative to discuss discharge planning needs. I have provided the [facility], Office of Care Management letter from the Jewel Bearing Facer pertaining to rehab referrals. I have also provided a letter describing our affiliations within the [facility] and educated them about their right to choose where referrals are placed. ?? I reviewed the different levels of rehab including SNF, swing, acute and LTAC with the patient/agricultural sales representative. ?? The patient/agricultural sales representative has been provided a list of facilities within their preferred geographic area. ?? I have requested that the patient/agricultural sales representative provide at least three choices for referral. ?? The patient/agricultural sales representative have requested referrals to: ?? 1. . ?? 2. [facility] ?? 3. More to be entered ?? Expected date of discharge: 07/14 Note routed to Outsole Cementer who will communicate referrals to facilities and [...] hours. If BG remains greater than 240, xlnayg37 units (no more than three times) & [...] hours. If BG remains greater than 240, oirgkj11 units (no more than three times) & call for new basal insulin orders. ??If less than 240 after two hours, give no insulin and resume prior schedule. Will continue to follow Katerin Azul APRN [facility] Endocrinology Diabetes Management Pager [phone] minutes of this 35 minute visit was spent with the patient in counseling on diabetes and treatment plan, reviewing all glucose and insulin data as well as relevant laboratory results with the patient, and coordination of care on the inpatient unit including nursing and primary team. Makayla Stevenson APRN - 07/12/2017 9:52 AM EST Cardiac Surgery Progress Note: ID: [id number] 72 year old male POD#5 s/p CABGx3 [...] 7:18 PM EST Patient arrived from [facility]. VSS. MSI dressing pulled off with [...] AM EST Cardiac Surgery Progress Note: ID: [id number] 72 year old male POD#4 s/p CABGx3 [...] hours. If BG remains greater than 240, aneozo89 units (no more than three times) & [...] AM EST Cardiac Surgery Progress Note: ID: [id number] 72 year old male POD#3 s/p CABGx3 [...] Gas) No results found for: PHART, PO2ART, EUU2CPC Assessment/Plan: 72 year old male POD#3 s/p CABGx3 with pre-operative placed IABP for severe LV dysfunction. pmhx pertinent for HTN, CHF, CAD, nSTEMI, IDDM, AMRIA VICTORIA, BPH, thyroid carcinoma s/p thyroidectomy melanoma Continue care by Diabetes Management, plan to transition of insulin gtt today Post-op afib with RVR- in and out, currently in sinus, gets amio 200 po bid. On metop 12.5 bid. When ready will add addition HF meds. Signed: Samy Maldonado MD Mami Thao - 07/09/2017 6:29 PM EST Eyeglass Frames Polisher Encounter Note Patient Name: Gregory Hoang : [id number] MR#: [id number] Admit Date: 07/05/2017 4:20 PM Hospital Day 4 days Narrative: Patient was sitting in chair, hugging heart pillow, opened his eyes, nodding to come into room Assessment: Patient was sleepy. Intervention and Outcome: Introduced spring coiler services and patient reached his hand out in appreciation. Follow-up: Eyeglass Frames Polisher remains available for support. Time in Direct [...] 10:45 AM EST Report given to staffing program manager to cover care Maddison Cee PA - 07/09/2017 9:00 AM EST Cardiac Surgery Progress Note: ID: [id number] 72 year old male POD#2 s/p CABGx3 [...] Attending Surgeon on rounds. Signed: STEPHANIE Iqbal [facility] Section of Cardiac Surgery Date: [...] when IABP d/c'ed. Gretchen Carolina, PT Pager [phone] Maddison Cee PA - 07/08/2017 11:27 AM EST Cardiac Surgery Progress Note: ID: [id number] 72 year old male POD#1 s/p CABGx3 [...] Attending Surgeon on rounds. Signed: STEPHANIE Iqbal [facility] Section of Cardiac Surgery Date: [...] in R femoral. No hematoma. DIRECTOR OF EXHIBITS- Intact Psych- Anxious Skin- Dry, no peripheral [...] in place in R femoral. DIRECTOR OF EXHIBITS- Intact Psych- Anxious Skin- Dry, no peripheral [...] note for details. DAPHNE SHAHID MD Pager [phone] Jet Mckenna MD - 07/05/2017 6:48 PM EST Preliminary Cardiac Catheterization Procedure Note: Procedure(s) performed: Left heart cath, IABP insertion Access: Right MILK DRIER-->8fr IABP A time-out was conducted prior [...] Heparin gtt maintained. Pt transferred to lab asst. documented in this encounter H&P Notes Daphne Shahid MD - 07/05/2017 6:08 PM EST CARDIOLOGY HISTORY & PHYSICAL EXAM Date of Admission: 07/05/2017 ( Hospital Day 0 days ) Responsible Attending: Daphne Shahid MD PCP: Lovely Vicente MD PCP#: [phone] Patient Active Problem List Diagnosis Code ??? [...] with heparin drip and transferred to [facility]. While there, continued sob, question of chest pain. Stat TTE showing WMA diffusely and EF around 20%. No significant valvular disease. Taken to the lab asst urgently for ongoing STEMI. [facility] Labs: [...] I/O - s/p lasix in the lab asst, redose to aim net neg 1L by [...] Medicine, PGY-2 Cardiology S1, Team Pager # [phone] CARDIOLOGY ATTENDING NOTE Patient: Gregory Hoang Date [...] amenable for PCI. DAPHNE SHAHID MD Pager [phone] documented in this encounter Miscellaneous Notes Consult Note - Daphne Shahid MD - 07/14/2017 11:46 AM EST Heart Failure Service Inpatient Consult Note Gregory Hoang Date of : 1945 Age: 72 y.o. Today's date: 07/14/17 PCP: Lovely Vicente MD MED DIR: None Place of Service: [facility] Reason for Consult: Dr. Webber has requested [...] performed by Manny Mcknight MD at [facility] OR ??? PRO CABG, ARTERIAL, SINGLE N/A 07/07/2017 @CABG, USING ARTERIAL GRAFT;SINGLE ARTERIAL GRAFT (WRVU 33.75) performed by Yuan Webber MD at [facility] OR ??? PRO CABG, ARTERY-VEIN, TWO N/A 07/07/2017 @CABG, TWO VENOUS GRAFTS & ARTERIAL GRAFT (WRVU 7.93) performed by Yuan Webber MD at [facility] OR ??? PRO COLONOSCOPY, REMV LESN, SNARE 01/16/2014 COLONOSCOPY, POLYPECTOMY, REMOVAL LESION BY SNARE performed by Nohemi Jaimes MD at [facility] ENDOSCOPY ??? PRO ENDOSCOPY W/VIDEO-ASST VEIN HARVEST, CABG Right 07/07/2017 ENDOSCOPIC HARVEST VEIN(S) FOR CABG (WRVU 0.31) performed by Yuan Webber MD at [facility] OR ??? PRO THYROIDECTOMY 03/28/2013 THYROIDECTOMY, TOTAL OR COMPLETE performed by Manny Mcknight MD at [facility] OR Outpt Meds: Current Outpatient Prescriptions [...] following studies: EKG 07/14/17: NSR 75 bpm, TOBACCO WAREHOUSE AGENT anterior infarct, LAD CXR 07/11/17: FINDINGS: Sternotomy wires. The patient has been extubated, left chest tube removed, and Kennedy-Suzi catheter removed since the 07/07/2017 study. Atelectasis [...] was discussed with Zehra. Jaden Kelley MD Front Desk Specialist Pager [phone] CARDIOLOGY ATTENDING NOTE Patient: Gregory Hoang Date [...] heart failure clinic. DAPHNE SHAHID MD Pager [phone] Plan of Care - Alden Chavarria PTA [...] home with assist Alden Chavarria PTA Pager: [phone] Inpatient Physical Therapy Problem: Acute Rehab Services [...] sit/sit to supine -- Bed Mobility Goal, [place] Level supervision required -- Bed Mobility Goal, [...] - 3 days -- Gait Training Goal, [place] Level supervision required -- Gait Training Goal, [...] days -- Transfer Training Goal, Activity Type sjj-re-zyagq/czune-kq-wcf;lwy-rr-ansuu/lpode-he-gng;toilet -- Transfer Train Goal, [place] Level supervision required -- Transfer Training Goal, [...] keeping present for 2 days per family. Environmental Restoration Planner noted of frustrations, house keeping sent to room. Patient offered showered twice, refused. at bedside, frustrated that shower not complete, informed that patient had refused several times. requesting to see UPSETTER HELPER, paged sent to Martha, will come to bedside (middle of consult). not willing to wait, Martha notified that family had gone home. Encouraged to come for morning rounds a t 8am. Diabetes team at bedside - insulin adjustments made. Call cabello in reach. Continue to monitor. PLAN MOVING FORWARD: Ambulate, dressing changes BID, Please change drsg at 4am per Marhta UPSETTER HELPER request. INDIVIDUALIZED FALL PREVENTION INTERVENTIONS: Patient-specific fall [...] levels on the lower side, 60ml of [place] juice given after a FS of 80. [...] Conf 07/13/17 0502 Interdisciplinary Rounds/Family Conf Participants child welfare caseworker;dietitian/nutrition services;nursing;occupational therapy;patient;pharmacy;physical therapy;physician Plan of Care [...] monitoring required during toileting and ADLs]: RN DEEP WELL CONTRACTOR Surveillance [continuous indirect monitoring]: Barrett Monitor CPG [...] Anticipated Discharge Disposition: home with assist Pager: [phone] CLARISSA SEGAL, PT 07/12/2017 Physical Therapy Rehabilitation [...] to sit/sit to supine Bed Mobility Goal, [place] Level supervision required Bed Mobility Goal, Additional Goal adheres to psternal precautions for transfer Goal: Gait Training Goal Stand Alone Therapy Goal Outcome: Ongoing (Interventions Implemented as Appropriate) 07/12/17 1225 Gait Training Goal Gait Training Goal, Date Established 07/12/17 Gait Training Goal, Time to Achieve 2 - 3 days Gait Training Goal, [place] Level supervision required Gait Training Goal, Assist [...] 3 days Transfer Training Goal, Activity Type vkf-sj-gixjx/xgbyr-qm-fhm;nrz-sb-ynevu/ixqzx-um-mlu;toilet Transfer Train Goal, [place] Level supervision required Transfer Training Goal, Additional Goal adheres to sternal precautions during transfer Consult Note - Octavia Vaughn RN - 07/12/2017 10:50 AM EST [facility] CARDIAC REHABILITATION Gregory Hoang was seen today [...] IV site, amio to other piv and ALUMINUM POOL INSTALLER at bedside to help assess, IV removed. [...] staff, he stood and marched in place. [place] weak, wanting to sit back down. Remained [...] Health/Prescription Coverage: Primary Insurance: MEDICARE Secondary Insurance: [employer] [place] Prescription Coverage: yes Preferred Pharmacy: [facility] Other: none Primary Care Provider: Lovely Vicente MD [phone] Patient/Caregiver Goals of Treatment:live and get my breath back Potential Needs for Transition of Care: Rehab/SNF: [facility] Home Health: NA DME: TBD Dialysis: na Community Resources: available Transportation: yes Other: none Anticipated Barriers to Discharge/Special Considerations: none Plan: Likely SNF Rehab before home A member of the Care Management team will continue to monitor progress, follow for continuity of care and assist with transition of care planning. ERLIN Weiss Pager: [phone] Consult Note - Katerin Azul RN - [...] potential to d/c gtt and start CF. truck terminal manager diabetes care: Medications - Outpatient treatment regimen recommendations pending based on the hospital course. Monitoring - continue BG tid ac & hs Diet - low fat/low carb diet Exercise - weight-bearing exercise 30 min/day, as tolerated Thank you for allowing us to provide care for your patient W/E coverage, Dr. Jeane Tatum, pager [phone] Katerin Azul APRN Endocrinology Diabetes Management Pager [phone] Plan of Care - Stephanie Godoy, RN [...] MD - 07/07/2017 6:27 PM EST [facility] Operative Note Patient Name: Gregory Hoang : [id number] MR#: [id number] Case Date: 07/07/2017 Surgeon: Surgeon(s) and Role: * Yuan Webber MD - Primary * Michael Drake PA - Physician Client Integration Manager * Linda Flores PA - Physician Client Integration Manager Preoperative diagnosis: 3VD Postoperative diagnosis: CAD, [...] Operative Note Patient Name: Gregory Hoang : [id number] MR#: [id number] Case Date: 07/07/2017 Surgeon: Surgeon(s) and Role: * Yuan Webber MD - Primary * Michael Drake PA - Physician Client Integration Manager * Linda Flores PA - Physician Client Integration Manager Preoperative diagnosis: 3VD Postoperative diagnosis: CAD, [...] (reference Cardiac: ACS (Acute Coronary Syndrome) (Adult) [facility] 07/07/17621 Cardiac: ACS (Acute Coronary [...] Hahn, MS3 [employer] [facility] Cardiology S1 (Pager [phone]) Plan of Care - Emelia Ibarra RN [...] SETUP performed by Manny Mcknight MD at [facility] MAIN OR ??? PRO COLONOSCOPY, REMV LESN, SNARE 01/16/2014 COLONOSCOPY, POLYPECTOMY, REMOVAL LESION BY SNARE performed by Nohemi Jaimes MD at [facility] ENDOSCOPY ??? PRO THYROIDECTOMY 03/28/2013 THYROIDECTOMY, TOTAL OR COMPLETE performed by Manny Mcknight MD at [facility] MAIN OR Social History: Social History [...] with other involved physicians Yuan Webber MD [phone] Med Student Progress Note - Katty Hahn [...] BiPAP - s/p lasix in the lab asst, was net -1.5L - s/p plavix load, [...] drip - hold metformin - f/u [facility] ?? #Home Meds - continue levothyroxine 175mcg - CPAP at night ?? # Routine - DVT PPx: heparin drip - Diet: Healthy heart diet, NPO at midnight for CABG tomorrow - Code Status: FULL - Dispo: CVCC Katty Hahn, M3 [facility] Cardiology S1 (Pager [phone]) Plan of Care - Stephanie Godoy RN - 07/06/2017 5:00 AM EST Problem: Patient Care Overview Goal: Plan of Care Review 07/06/17 2456 Coping/Psychosocial Plan Of Care Reviewed With patient;family [...] urinal without difficulty. Lasix given in lab asst, 1.4 L out at this time. Pt [...] Outcome: Ongoing (Interventions Implemented as Appropriate) 07/06/17 1316 Cardiac: ACS (Acute Coronary Syndrome) Problems Assessed [...] Dolan MD [facility] [place] [address] (Wo rk) 05/28/2022 Laboratory Appointment Lab 05/28/2022 Office Visit Cardiology Zulma Dolan MD [facility] [place] [address] Liz Poole PA [facility] [place] [address] 06/10/2022 Office Visit Dermatology Laura Scherer MD [facility] [address], [place] [address] (Wo rk) Scheduled Orders Name [...] procedure are i n the results section. REHABILITATION NURSE SCAN 07/15/2017 12:00 Res ults for [...] 07/08/2017 4:00 Results f or this ([facility] AM EST procedure are i n the [...] 07/07/2017 5:15 Results f or this ([facility]) AM EST procedure are i n the [...] 07/06/2017 7:40 Results f or this ([facility]) PM EST procedure are i n the [...] 07/06/2017 2:10 Results f or this ([facility]) PM EST procedure are i [...] TYPE AND SCREEN Routine 07/06/2017 12:00 ([facility]SHANDA) PM EST APTT STAT 07/06/2017 11:24 Results [...] 07/06/2017 8:10 Results f or this ([facility]) AM EST procedure are i n the [...] 07/06/2017 2:20 Results f or this ([facility]) AM EST procedure are i n the [...] 07/05/2017 8:20 Results f or this ([facility]) PM EST procedure are i n the [...] 07/05/2017 4:55 Results f or this ([facility]) PM EST procedure are i [...] 2017 EXAMINATION: XR CHEST PA AND LATERAL ([employer]) CLINICAL HISTORY: CABG x 3 TECHNIQUE: PA [...] Teague APRN IMG DX ORDERABLES SCAN DOC: REHABILITATION NURSE (07/15/2017 12:00 AM EST) Narrative 07/15/2017 [...] Signature POC Glucose 186 65 - 199 [facility] mg/dL [facility] Comment: [...] Organization Address City/State/[place] [address] POCT Glucose (07/14/2017 7:52 AM EST) athologist Signature POC Glucose 126 65 - 199 [facility] mg/dL [facility] Comment: Supplemental ranges: <140 mg/dL before meals <180 mg/dL all other times of the day Specimen Anatomical Collection Method Collection Time Receive d Time (Source) Location / / Volume Laterality Blood specimen 07/14/2017 7:52 AM 017 7:52 (specimen) EST AM EST Yuan Webber MD POINT OF CARE TEST ORDERABLE S Performing Organization Address [facility]/[place] [address] (ABNORMAL) Prothrombin Time (07/14/2017 [...] Wilson APRN HEMATOLOGY ORDERABLES Performing Organization Address City/[facility] [place] [address] Potassium (07/14/2017 4:46 AM EST) athologist Signature Potassium 4.3 3.5 - 5.0 [facility] mmol/L [facility] Comment: [...] Address City/State/ZIP Code Phon e Number [address] POCT Glucose (07/14/2017 4:34 AM EST) athologist Signature POC Glucose 115 65 - 199 [place] mg/dL [facility] Comment: [...] City/[facility]/ZIP Code Phon e Number [address] POCT Glucose (07/13/2017 11:33 PM EST) athologist Signature POC Glucose 132 65 - 199 [place] mg/dL [facility] Comment: [...] City/[facility]/ZIP Code [place] [address] POCT Glucose (07/13/2017 9:25 PM EST) athologist Signature POC Glucose 121 65 - 199 [place] mg/dL [facility] Comment: [...] Address City/State/ZIP Code Phon e Number [address] POCT Glucose (07/13/2017 4:55 PM EST) athologist Signature POC Glucose 79 65 - [address] [facility] mg/dL [facility] Comment: [...] Address City/State/ZIP Code Phon e Number [address] POCT Glucose (07/13/2017 11:16 AM EST) athologist Signature POC Glucose 163 65 - [address] [facility] mg/dL [facility] Comment: [...] Organization Address City/State/ZIP Code Phon e Number [place] [id number] POCT Glucose (07/13/2017 8:07 AM EST) athologist Signature POC Glucose 96 65 - [address] [facility] mg/dL [facility] Comment: Supplemental ranges: <140 mg/dL before meals <180 mg/dL all other times of the day Specimen Anatomical Collection Method Collection Time Receive d Time (Source) Location / / Volume Laterality Blood specimen 07/13/2017 8:07 AM 017 8:07 (specimen) EST AM EST Yaun Webber MD POINT OF CARE TEST ORDERABLE S Performing Organization Address City/State/[place] [address] (ABNORMAL) Prothrombin Time (07/13/2017 [...] Organization Address City/State/[place] [address] (ABNORMAL) Basic Metabolic Panel (non-fasting) (07/13/2017 4:26 AM EST) athologist Signature Glucose Lvl 95 65 - 199 [facility] mg/dL [facility] Comment: [...] or in patients with acute kidney failure. http://[email or web address] http://[employer]/DHMCnkf Specimen Anatomical Collection Method Collection Time Receive d Time (Source) Location / / Volume Laterality Blood specimen 07/13/2017 4:26 AM 017 4:46 (specimen) EST AM EST Resulting Agency Comment Spec In Lab Makayla Wilson APRN CHEMISTRY ORDERABLES Performing Organization Address City/[facility]/ZIP Code Phon e Number [address] POCT Glucose (07/13/2017 3:52 AM EST) athologist Signature POC Glucose 93 65 - 199 [facility] mg/dL [facility] Comment: [...] Address City/State/ZIP Code Phon e Number [address] POCT Glucose (07/13/2017 12:21 AM EST) athologist Signature POC Glucose 80 65 - 199 [facility] mg/dL [facility] Comment: [...] Address City/State/ZIP Code Phon e Number [address] POCT Glucose (07/12/2017 8:22 PM EST) P athologist Signature POC Glucose 119 65 - 199 [place] mg/dL [facility] Comment: [...] City/[facility]/ZIP Code Phon e Number [address] POCT Glucose (07/12/2017 4:02 PM EST) athologist Signature POC Glucose 114 65 - 199 [place] mg/dL [facility] Comment: [...] Address City/State/ZIP Code Phon e Number [address] POCT Glucose (07/12/2017 11:28 AM EST) P athologist Signature POC Glucose 164 65 - [address] [facility] mg/dL [facility] Comment: [...] Address City/State/ZIP Code Phon e Number [address] POCT Glucose (07/12/2017 7:34 AM EST) athologist Signature POC Glucose 109 65 - 199 [facility]dL [facility] Comment: [...] Organization Address City/State/[place] [address] (ABNORMAL) Basic Metabolic Panel (non-fasting) (07/12/2017 4:11 AM EST) athologist Signature Glucose Lvl 92 65 - 199 [facility] mg/dL [facility] Comment: [...] or in patients with acute kidney failure. http://[employer]/DHnkdep http://[employer]/DHMCnkf Specimen Anatomical Collection Method Collection Time Receive d Time (Source) Location / / Volume Laterality Blood specimen 07/12/2017 4:11 AM 017 8:57 (specimen) EST AM EST Resulting Agency Comment Spec [facility] CHEMISTRY ORDERABLES Performing Organization Address [facility] [place] [address] (ABNORMAL) Prothrombin Time (07/12/2017 [...] [place] STACIE HEMATOLOGY ORDERABLES Performing Organization Address City/[facility] Phon e Number [address] Potassium (07/12/2017 4:11 AM EST) P athologist Signature Potassium 3.8 3.5 - 5.0 [facility]/L [facility] Comment: Please [...] Wilson APRN CHEMISTRY ORDERABLES Performing Organization Address City/[facility]/ZIP Code Phon e Number [address] POCT Glucose (07/12/2017 4:10 AM EST) athologist Signature POC Glucose 90 65 - 199 [facility] mg/dL [facility] Comment: [...] City/[facility]/ZIP Code Phon e Number [address] POCT Glucose (07/11/2017 11:57 PM EST) athologist Signature POC Glucose 98 65 - 199 [facility] Comment: [...] City/[facility]/ZIP Code Phon e Number [address] POCT Glucose (07/11/2017 8:32 PM EST) P athologist Signature POC Glucose 146 65 - 199 [place] mg/dL [facility] Comment: [...] City/State/ZIP Code Phon e Number [facility] [place] [place] [address] XR Chest PA & [...] e xtubated, left chest tube removed, and Kennedy-Suzi catheter removed since the study. Atelectasis at [...] e xtubated, left chest tube removed, and Kennedy-Suzi catheter removed since the study. Atelectasis at [...] (H) 65 - 199 [place] mg/dL [facility] Comment: [...] Organization Address City/State/[place] [address] POCT Glucose (07/11/2017 11:55 AM EST) athologist Signature POC Glucose 176 65 - 199 [place] mg/dL [facility] Comment: [...] Organization Address City/State/[place] [address] POCT Glucose (07/11/2017 7:53 AM EST) athologist Signature POC Glucose 189 65 - 199 [place] mg/dL [facility] Comment: [...] City/[facility]/ZIP Code Phon e Number [address] POCT Glucose (07/11/2017 4:22 AM EST) athologist Signature POC Glucose 151 65 - 199 [place] mg/dL [facility] Comment: Supplemental ranges: <140 mg/dL before meals <180 mg/dL all other times of the day Specimen Anatomical Collection Method Collection Time Receive d Time (Source) Location / / Volume Laterality Blood specimen 07/11/2017 4:22 AM 017 4:22 (specimen) EST AM EST Yuan Webber MD POINT OF CARE TEST ORDERABLE S Performing Organization Address City/[facility] [place] [address] Potassium (07/11/2017 2:20 AM EST) athologist Signature Potassium 4.5 3.5 - 5.0 [facility] mmol/L [facility] Comment: [...] Webber MD CHEMISTRY ORDERABLES Performing Organization Address City/[facility]/ZIP Code Phon e Number [address] POCT Glucose (07/11/2017 12:17 AM EST) athologist Signature POC Glucose 162 65 - 199 [facility] mg/dL [facility] Comment: [...] Organization Address City/State/[place] [address] POCT Glucose (07/10/2017 8:47 PM EST) athologist Signature POC Glucose 191 65 - 199 [place] mg/dL [facility] Comment: [...] Organization Address City/State/[place] [address] POCT Glucose (07/10/2017 4:06 PM EST) athologist Signature POC Glucose 131 65 - 199 [place] mg/dL [facility] Comment: [...] Organization Address City/State/[place] [address] POCT Glucose (07/10/2017 3:08 PM EST) athologist Signature POC Glucose 151 65 - 199 [place] mg/dL [facility] Comment: [...] Address City/State/ZIP Code Phon e Number [address] POCT Glucose (07/10/2017 2:25 PM EST) athologist Signature POC Glucose 146 65 - 199 [place] mg/dL [facility] Comment: [...] Organization Address City/State/[place] [address] POCT Glucose (07/10/2017 1:23 PM EST) athologist Signature POC Glucose 166 65 - 199 [place] mg/dL [facility] Comment: [...] Organization Address City/State/[place] [address] POCT Glucose (07/10/2017 11:52 AM EST) athologist Signature POC Glucose 157 65 - 199 [place] mg/dL [facility] Comment: [...] City/[facility]/ZIP Code Phon e Number [address] POCT Glucose (07/10/2017 11:01 AM EST) P athologist Signature POC Glucose 158 65 - 199 [place] mg/dL [facility] Comment: [...] City/[facility]/ZIP Code Phon e Number [address] POCT Glucose (07/10/2017 9:54 AM EST) P athologist Signature POC Glucose 160 65 - 199 [place] mg/dL [facility] Comment: [...] Address City/State/ZIP Code Phon e Number [address] POCT Glucose (07/10/2017 8:58 AM EST) P athologist Signature POC Glucose 183 65 - [address] [facility] mg/dL [facility] Comment: [...] Address City/State/ZIP Code Phon e Number [address] POCT Glucose (07/10/2017 8:01 AM EST) athologist Signature POC Glucose 173 65 - 199 [place] mg/dL [facility] Comment: [...] Address City/State/ZIP Code Phon e Number [address] POCT Glucose (07/10/2017 7:05 AM EST) athologist Signature POC Glucose 166 65 - 199 [place] mg/dL [facility] Comment: [...] Organization Address City/State/[place] [address] POCT Glucose (07/10/2017 6:00 AM EST) athologist Signature POC Glucose 162 65 - 199 [place] mg/dL [facility] Comment: [...] Address City/State/ZIP Code Phon e Number [address] (ABNORMAL) Differential, Automated (07/10/2017 4:28 AM EST) [facility] Method Time Signature Neutrophils % 87.9 % [facility] Neutr Abs (ANC) 10.70 (H) 1.70 - [facility] 6.10 [facility] x10(3)/[facility] L LABORATORY Lymphocytes % 3.9 % [facility] Lymphocytes Abs 0.5 (L) 0.9 - 3.2 [facility] x10(3)/[facility] LABORATORY Monocytes % 7.0 % [facility] Monocyte Abs 0.8 0.3 - 0.9 [facility] x10(3)/[facility] LABORATORY Eosinophils % 0.3 % [facility] Eosinophils Abs 0.0 0.0 - 0.4 [facility] x10(3)/[facility] LABORATORY Basophils % 0.2 % [facility] Basophils Abs 0.0 0.0 - 0.1 [facility] x10(3)/[facility] LABORATORY Immature Gran % 0.70 % [...] Webber MD HEMATOLOGY ORDERABLES Performing Organization Address City/[facility]/[place] [address] (ABNORMAL) Hemogram (07/10/2017 4:28 AM EST) Analysis Performed At Patho logist Time Signature WBC 12.2 (H) 4.0 - 9.5 [facility] x10(3)/[facility] LABORATORY RBC 3.31 (L) 4.58 - [place] 5.54 [facility] x10(6)/[facility] LABORATORY Hemoglobin 9.8 (L) 13.7 - [facility] 16.5 gm/dL [facility] Hematocrit 30.0 (L) 40.5 - [facility] 48.5 % [facility] MCV 90.6 82.9 - [facility] 93.[address] [facility] LABORATORY MCH 29.6 27.5 - [facility] 32.1 pg [facility] MCHC 32.7 32.0 - [facility] 35.7 gm/dL [facility] Platelets 135 (L) 145 - 357 [facility] x10(3)/[facility] LABORATORY RDWSD 50.8 (H) 36.0 - [facility] 45.[address] [facility] LABORATORY RDWCV 15.4 (H) 11.4 - [facility] 13.8 % [facility] MPV 10.0 7.6 - 12.9 [facility] LABORATORY nRBC % Auto 0.0 % [facility] LABORATORY nRBC Abs Auto 0.000 0.000 - [facility] 0.000 [facility] x10(3)/[facility] LABORATORY Specimen Anatomical Collection Method Collection Time Receive d Time (Source) Location / / Volume Laterality Blood specimen 07/10/2017 4:28 AM 017 4:36 (specimen) EST AM EST Resulting Agency Comment Spec In Lab Yuan Webber MD HEMATOLOGY ORDERABLES Performing Organization Address City/State/[place] [address] (ABNORMAL) Basic Metabolic Panel (non-fasting) (07/10/2017 4:28 AM EST) P athologist Signature Glucose Lvl 178 65 - 199 [facility] mg/dL [facility] Comment: [...] or in patients with acute kidney failure. http://[employer]/DHnkdep http://[employer]/DHMCnkf Specimen Anatomical Collection Method Collection Time Receive d Time (Source) Location / / Volume Laterality Blood specimen 07/10/2017 4:28 AM 017 4:36 (specimen) EST AM EST Resulting Agency Comment Spec In Lab Yuan Webber MD CHEMISTRY ORDERABLES Performing Organization Address City/State/[place] [address] POCT Glucose (07/10/2017 4:26 AM EST) P athologist Signature POC Glucose 176 65 - 199 [facility] mg/dL [facility] Comment: [...] City/[facility]/ZIP Code Phon e Number [address] (ABNORMAL) POCT Glucose (07/10/2017 3:06 AM EST) P athologist Signature POC Glucose 204 (H) 65 - 199 [place] mg/dL [facility] Comment: [...] City/[facility]/[place] [address] (ABNORMAL) POCT Glucose (07/10/2017 2:10 AM EST) P athologist Signature POC Glucose 203 (H) 65 - 199 [facility] Comment: [...] Address City/State/ZIP Code Phon e Number [address] POCT Glucose (07/10/2017 1:09 AM EST) P athologist Signature POC Glucose 196 65 - [address] [facility] mg/dL [facility] Comment: [...] Address City/State/ZIP Code Phon e Number [address] POCT Glucose (07/10/2017 12:10 AM EST) P athologist Signature POC Glucose 173 65 - 199 [place] mg/dL [facility] Comment: [...] Address City/State/ZIP Code Phon e Number [address] POCT Glucose (07/09/2017 11:01 PM EST) athologist Signature POC Glucose 140 65 - 199 [place] mg/dL [facility] Comment: [...] Address City/State/ZIP Code Phon e Number [address] POCT Glucose (07/09/2017 10:05 PM EST) P athologist Signature POC Glucose 144 65 - [address] [facility] mg/dL [facility] Comment: [...] Address City/State/ZIP Code Phon e Number [address] POCT Glucose (07/09/2017 9:31 PM EST) athologist Signature POC Glucose 121 65 - 199 [place] mg/dL [facility] Comment: [...] City/[facility]/ZIP Code Phon e Number [address] POCT Glucose (07/09/2017 9:03 PM EST) athologist Signature POC Glucose 98 65 - 199 [place] mg/dL [facility] Comment: [...] City/[facility]/ZIP Code Phon e Number [address] POCT Glucose (07/09/2017 8:09 PM EST) athologist Signature POC Glucose 117 65 - 199 [place] mg/dL [facility] Comment: [...] Address City/State/ZIP Code Phon e Number [address] POCT Glucose (07/09/2017 5:40 PM EST) athologist Signature POC Glucose 155 65 - 199 [place] [facility] mg/dL [facility] Comment: [...] Address City/State/ZIP Code Phon e Number [address] POCT Glucose (07/09/2017 4:24 PM EST) athologist Signature POC Glucose 164 65 - 199 [place] mg/dL [facility] Comment: [...] Address City/State/ZIP Code Phon e Number [address] POCT Glucose (07/09/2017 3:19 PM EST) athologist Signature POC Glucose 166 65 - 199 [place] mg/dL [facility] Comment: [...] Organization Address City/State/Z[place] [address] POCT Glucose (07/09/2017 2:26 PM EST) athologist Signature POC Glucose 179 65 - 199 [place] mg/dL [facility] Comment: [...] City/[facility]/[place] [address] (ABNORMAL) POCT Glucose (07/09/2017 1:29 PM EST) athologist Signature POC Glucose 210 (H) 65 - 199 [place] mg/dL [facility] Comment: [...] City/[facility] [facility] [address] POCT Glucose (07/09/2017 12:20 PM EST) athologist Signature POC Glucose 172 65 - 199 KATALINA ZHAORYAN mg/dL [facility] LABORATORY Comment: [...] Address City/State/ZIP Code Phon e Number [address] POCT Glucose (07/09/2017 11:24 AM EST) P athologist Signature POC Glucose 156 65 - 199 KATALINA ZHAORYAN mg/dL [facility] LABOR[facility] Comment: [...] Address City/State/ZIP Code Phon e Number [address] POCT Glucose (07/09/2017 11:11 AM EST) athologist Signature POC Glucose 172 65 - 199 [place] mg/dL [facility] [...] Organization Address City/State/ZIP Code Phon e Number [place], [place] [id number] [place] [address] POCT Glucose (07/09/2017 10:08 AM EST) P athologist Signature POC Glucose 176 65 - 199 KATALINA ZHAORYAN mg/dL [facility] Comment: [...] Address City/State/ZIP Code [place] [address] POCT Glucose (07/09/2017 8:02 AM EST) P athologist Signature POC Glucose 178 65 - 199 [facility] mg/dL [facility] Comment: [...] Organization Address City/State/[place] [address] (ABNORMAL) BLOOD GAS 2 ARTERIAL (07/09/2017 5:37 AM EST) Analysis Performed At Patho logist Time Signature pH Art 7.36 7.35 - [facility] 7.45 [facility] pCO2 Art 38 35 - 45 [facility] LABORATORY pO2 Art 79 (L) 85 - 104 [facility] LABORATORY HCO3 Art 20.9 20.0 - [facility] 26.0 [facility] mmol/L [facility] LABORATORY BE Art -4.6 (L) -3.0 - 3.0 [facility] mmol/L [facility] Hgb Blood Gas 10.5 (L) 13.7 - [facility] 16.5 gm/dL [facility] O2HB Art 93.8 (L) 94.0 - [facility] 97.0 % [facility] COHB Art 0.3 % [facility] [...] Lactate WB 1.0 0.5 - 2.2 mmol/L [facility] LABORATORY FIO2 Art 40 % [facility] LABORATORY PF Ratio Art 198 [facility] LABORATORY Specimen Anatomical Collection Method Collection Time Receive d Time (Source) Location / / Volume Laterality Blood specimen 07/09/2017 5:37 AM 017 5:37 (specimen) EST AM EST Yuan Webber MD CHEMISTRY ORDERABLES Performing Organization Address City/State/ZIP Code Phon e Number [address] POCT Glucose (07/09/2017 3:27 AM EST) athologist Signature POC Glucose 192 65 - 199 [facility] mg/dL [facility] Comment: [...] City/[facility]/[place] [address] (ABNORMAL) Basic Metabolic Panel (non-fasting) (07/09/2017 2:30 AM EST) P athologist Signature Glucose Lvl 179 65 - 199 [facility] mg/dL [facility] Comment: [...] or in patients with acute kidney failure. http://[employer]/DHnkdep http://[employer]/DHMCnkf Specimen Anatomical Collection Method Collection Time Receive d Time (Source) Location / / Volume Laterality Blood specimen Venous Draw / 07/09/2017 2:30 AM 2016 2:42 (specimen) Unknown EST AM EST Resulting Agency Comment Spec In Lab Yuan Webber MD CHEMISTRY ORDERABLES Performing Organization Address City/State/[place] [address] (ABNORMAL) Potassium (07/09/2017 2:30 AM EST) P athologist Signature Potassium 5.1 (H) 3.5 - 5.0 [facility] mmol/L [facility] Comment: [...] Organization Address City/State/[place] [address] (ABNORMAL) Hemogram (07/09/2017 2:30 AM EST) Analysis Performed At Patho logist Time Signature WBC 12.5 (H) 4.0 - 9.5 [facility] LABORATORY RBC 3.38 (L) 4.58 - [facility] 5.54 [facility] x10(6)/[facility] LABORATORY Hemoglobin 10.1 (L) 13.7 - [facility] 16.5 gm/dL [facility] Hematocrit 30.3 (L) 40.5 - [facility] 48.5 % [facility] MCV 89.6 82.9 - [facility] 93.[address] [facility] LABORATORY MCH 29.9 27.5 - K[place]ALINA RYAN 32.1 pg [facility]AT[facility] MCHC 33.3 32.0 - [facility] 35.7 gm/dL [facility] Platelets 127 (L) 145 - 357 [facility] x10(3)/[facility] LABORATORY RDWSD 49.3 (H) 36.0 - KATALINA RYAN 45.[address] [facility] LABORATORY RDWCV 15.2 (H) 11.4 - [facility] 13.8 % [facility] LABORATORY MPV 9.9 7.6 - 12.9 [facility] LABORATORY nRBC % Auto 0.0 % [facility] LABORATORY nRBC Abs Auto 0.000 0.000 - [place]ALINA RYAN 0.000 [facility] x10(3)/[facility] LABORATORY Specimen Anatomical Collection Method Collection Time Receive d Time (Source) Location / / Volume Laterality Blood specimen 07/09/2017 2:30 AM 017 2:41 (specimen) EST AM EST Resulting Agency Comment Spec In Lab Yuan Webber MD HEMATOLOGY ORDERABLES Performing Organization Address City/[facility]/[place] [address] POCT Glucose (07/09/2017 2:10 AM EST) P athologist Signature POC Glucose 169 65 - 199 KATALINA RYAN mg/dL [facility] Comment: [...] City/[facility]/[place] [address] POCT Glucose (07/09/2017 1:01 AM EST) P athologist Signature POC Glucose 173 65 - 199 KATALINA ZHAORYAN mg/dL [facility] Comment: [...] City/[facility]/[place] [address] Blood culture (07/09/2017 12:40 AM EST) Patholo gist Method Time Signature Blood Culture No growth [place]INA VILLAREAL[place]OCK at 5 days. [facility] Specimen Anatomical Collection Method Collection Time Receive d Time (Source) Location / / Volume Laterality Blood specimen STRUCTURE OF RIGHT 07/09/2017 12:40 3:58 (specimen) UPPER LIMB / AM EST AM EST Unknown Resulting Agency Comment Spec In Lab Yuan Webber MD MICROBIOLOGY - BLOOD ORDERAB LES Performing Organization Address City/State/[place] [address] Blood culture (07/09/2017 12:30 AM EST) Patholo gist Method Time Signature Blood Culture No growth KATALINA DAVIS at 5 days. [facility] Specimen Anatomical Collection Method Collection Time Receive d Time (Source) Location / / Volume Laterality Blood specimen STRUCTURE OF LEFT 07/09/2017 12:30 1211/2016 3:59 (specimen) UPPER LIMB / AM EST AM EST Unknown Resulting Agency Comment Spec In Lab Yuan Webber MD MICROBIOLOGY - BLOOD ORDERAB LES Performing Organization Address City/[facility]/[place] [address] (ABNORMAL) Urinalysis Microscopic Exam [...] Organization Address City/State/[place] [address] (ABNORMAL) Urinalysis with reflex Culture (07/09/2017 12:05 AM EST) [facility] gist Method Time Signature Glucose UA Negative Negative [facility] mg/dL [facility] Protein UA 30 (A) Negative [facility]/dL [facility] Bilirubin UA Negative Negative [facility]/dL [facility] Comment: [...] LABORATORY Blood UA Moderate (A) Negative mg/dL [facility] LABORATORY Ketones UA Negative Negative mg/dL [facility] LABORATORY Nitrite UA Negative Negative [facility] LABORATORY Leukocytes UA Negative Negative [facility] LABORATORY Appearance UA Hazy (A) Clear [facility] LABORATORY Spec [place] UA 1.025 1.002 - 1.030 [facility] LABORATORY Color UA Yellow Yellow [facility] [...] Webber MD URINE ORDERABLES Performing Organization Address City/[facility]/[place] [address] POCT Glucose (07/08/2017 11:01 PM EST) P athologist Signature POC Glucose 191 65 - 199 [facility]/dL [facility] Comment: [...] Address City/State/ZIP Code Ph[place] [address] POCT Glucose (07/08/2017 10:04 PM EST) athologist Signature POC Glucose 198 65 - 199 [facility] mg/dL [facility] Comment: [...] Organization Address City/State/[place] [address] Prepare Albumin 5% in [...] Organization Address City/State/[place] [address] POCT Glucose (07/08/2017 8:28 PM EST) athologist Signature POC Glucose 195 65 - 199 [facility] mg/dL [facility] Comment: [...] Organization Address City/State/[place] [address] (ABNORMAL) POCT Glucose (07/08/2017 7:13 PM EST) P athologist Signature POC Glucose 220 (H) 65 - 199 [facility] mg/dL [facility] Comment: [...] Address City/State/ZIP Code Phon e Number [address] POCT Glucose (07/08/2017 5:04 PM EST) athologist Signature POC Glucose 147 65 - 199 [facility] mg/dL [facility] Comment: [...] Organization Address City/State/[place] [address] (ABNORMAL) BLOOD GAS 2 ARTERIAL (07/08/2017 4:13 PM EST) Analysis Performed At Patho logist Time Signature pH Art 7.38 7.35 - [facility] 7.45 [facility] LAB[facility]ATORY pCO2 Art 36 35 - 45 [facility] LABORATORY pO2 Art 91 85 - 104 [facility] LABORATORY HCO3 Art 20.9 20.0 - [facility] 26.0 [facility] mmol/L [facility] LABORATORY BE Art -4.2 (L) -3.0 - 3.0 [facility] mmol/L [facility] Hgb Blood Gas 11.7 (L) 13.7 - [facility] 16.5 gm/dL [facility] O2HB Art 95.1 94.0 - [facility] 97.0 % [facility] COHB Art 0.6 % [facility] [...] Lactate WB 1.4 0.5 - 2.2 mmol/L [facility] LABORATORY FIO2 Art 40 % [facility] LABORATORY PF Ratio Art 228 [facility] LABORATORY Specimen Anatomical Collection Method Collection Time Receive d Time (Source) Location / / Volume Laterality Blood specimen 07/08/2017 4:13 PM 017 4:13 (specimen) EST PM EST Yuan Webber MD CHEMISTRY ORDERABLES Performing Organization Address City/State/[place] [address] POCT Glucose (07/08/2017 4:01 PM EST) P athologist Signature POC Glucose 148 65 - 199 [facility] mg/dL [facility] Comment: [...] Address City/State/ZIP Code Phon e Number [address] POCT Glucose (07/08/2017 3:21 PM EST) athologist Signature POC Glucose 118 65 - 199 KATALINA ZHAORYAN mg/dL [facility] Comment: [...] City/[facility]/ZIP Code Phon e Number [address] POCT Glucose (07/08/2017 2:01 PM EST) athologist Signature POC Glucose 129 65 - 199 KATALINA ZHAORYAN mg/dL [facility] Comment: [...] Organization Address City/State/[place] [address] POCT Glucose (07/08/2017 11:53 AM EST) athologist Signature POC Glucose 156 65 - 199 KATALINA RYAN mg/dL [facility] Comment: [...] Organization Address City/State/[place] [address] POCT Glucose (07/08/2017 11:04 AM EST) P athologist Signature POC Glucose 181 65 - 199 [facility]/dL [facility] Comment: [...] City/[facility]/[place] [address] (ABNORMAL) POCT Glucose (07/08/2017 9:24 AM EST) athologist Signature POC Glucose 203 (H) 65 - 199 [facility] mg/dL [facility] Comment: [...] City/[facility]/[place] [address] APTT (07/08/2017 8:40 AM [...] Organization Address City/State/[place] [address] (ABNORMAL) Prothrombin Time (07/08/2017 [...] Webber MD HEMATOLOGY ORDERABLES Performing Organization Address City/[facility]/[place] [address] (ABNORMAL) POCT Glucose (07/08/2017 7:38 AM EST) P athologist Signature POC Glucose 232 (H) 65 - 199 [facility] mg/dL [facility] Comment: [...] City/[facility]/[place] [address] (ABNORMAL) POCT Glucose (07/08/2017 7:07 AM EST) athologist Signature POC Glucose 234 (H) 65 - 199 [facility] mg/dL [facility] Comment: [...] Organization Address City/State/[place] [address] (ABNORMAL) POCT Glucose (07/08/2017 6:04 AM EST) athologist Signature POC Glucose 225 (H) 65 - 199 [facility] mg/dL [facility] Comment: [...] City/[facility]/[place] [address] (ABNORMAL) POCT Glucose (07/08/2017 5:31 AM EST) athologist Signature POC Glucose 216 (H) 65 - 199 [facility] mg/dL [facility] Comment: [...] Organization Address City/State/[place] [address] (ABNORMAL) POCT Glucose (07/08/2017 4:52 AM EST) P athologist Signature POC Glucose 257 (H) 65 - 199 [facility] mg/dL [facility] Comment: [...] Organization Address City/State/[place] [address] (ABNORMAL) BLOOD GAS 2 ARTERIAL (07/08/2017 4:04 AM EST) Analysis Performed At Patho logist Time Signature pH Art 7.30 (L) 7.35 - [facility] 7.45 [facility] LAB[facility] pCO2 Art 41 35 - 45 [facility] LABORATORY pO2 Art 83 (L) 85 - 104 [facility] LABORATORY HCO3 Art 19.6 (L) 20.0 - [facility] 26.0 [facility] mmol/[facility] LABORATORY BE Art -6.8 (L) -3.0 - 3.0 [facility] mmol/L [facility]OR[facility] Hgb Blood Gas 12.2 (L) 13.7 - [facility] 16.5 gm/dL [facility] O2HB Art 93.5 (L) 94.0 - [facility] 97.0 % [facility]AT[facility] COHB Art 0.4 % [facility] Comment: Noted by instrument designer. FIO2 Art 40 % [facility] LABORATORY PF Ratio Art 208 [facility] LABORATORY Specimen Anatomical Collection Method Collection Time Receive d Time (Source) Location / / Volume Laterality Blood specimen 07/08/2017 4:04 AM 017 4:04 (specimen) EST AM EST Daphne Sahhid MD CHEMISTRY ORDERABLES Performing Organization Address City/State/ZIP Code Phon e Number [address] Scan, Peripheral Blood (07/08/2017 [...] Address City/State/ZIP Code Phon e Number [address] (ABNORMAL) Differential, Automated (07/08/2017 4:00 AM EST) Patholo gist Method Time Signature Neutrophils % 85.4 % [facility] LABORATORY Neutr Abs (ANC) 16.07 (H) 1.70 - [facility] 6.10 [facility] x10(3)/[facility] LABORATORY Lymphocytes % 3.5 % [facility] LABORATORY Lymphocytes Abs 0.6 (L) 0.9 - 3.2 [facility] x10(3)/[facility] LABORATORY Monocytes % 10.4 % [facility] LABORATORY Monocyte Abs 2.0 (H) 0.3 - 0.9 [facility] x10(3)/[facility] LABORATORY Eosinophils % 0.0 % [facility] LABORATORY Eosinophils Abs 0.0 0.0 - 0.4 [facility] x10(3)/[facility] LABORATORY Basophils % 0.1 % [facility] LABORATORY Basophils Abs 0.0 0.0 - 0.1 [facility] x10(3)/[facility] LABORATORY [...] Organization Address City/State/[place] [address] (ABNORMAL) Hemogram (07/08/2017 4:00 AM EST) Analysis Performed At Patho logist Time Signature WBC 18.8 (H) 4.0 - 9.5 [facility] x10(3)/[facility] LABORATORY RBC 4.00 (L) 4.58 - [facility] 5.54 [facility] x10(6)/[facility] LABORATORY Hemoglobin 11.9 (L) 13.7 - [facility] 16.5 gm/dL [facility] LABOR[facility] Hematocrit 35.9 (L) 40.5 - KATALINA DAVIS 48.5 % [facility] LABORATORY MCV 89.8 82.9 - [facility] 93.[address] [facility] LABORATORY MCH 29.8 27.5 - KATALINA DAVIS 32.1 pg [facility] LABORAT[facility] MCHC 33.1 32.0 - KATALINA ZHAORYAN 35.7 gm/dL [facility]OR[facility] Platelets 232 145 - 357 [facility] x10(3)/[facility] LABORATORY RDWSD 47.6 (H) 36.0 - KATALINA ZHAORYAN 45.[address] [facility] LABORATORY RDWCV 14.5 (H) 11.4 - [facility] 13.8 % [facility] LABORATORY MPV 9.5 7.6 - 12.9 [facility] LABORATORY nRBC % Auto 0.0 % [facility] LABORATORY nRBC Abs Auto 0.000 0.000 - [facility] 0.000 [facility] x10(3)/[facility] LABORATORY Specimen Anatomical Collection Method Collection Time Receive d Time (Source) Location / / Volume Laterality Blood specimen 07/08/2017 4:00 AM 017 4:09 (specimen) EST AM EST Resulting Agency Comment Spec In Lab Yuan Webber MD HEMATOLOGY ORDERABLES Performing Organization Address City/State/ZIP Code Phon e Number [place] [id number] [address]OS[address] Drive (ABNORMAL) Electrolytes panel (07/08/2017 4:00 AM EST) P athologist Signature Sodium 139 135 - 145 [facility] mmol/L [facility] LABORATORY Potassium 4.7 3.5 - 5.0 [facility] mmol/L [facility] LABORAT[facility] Comment: [...] CO2 21 (L) 22 - 31 mmol/L [facility] Anion Gap 14 5 - 15 mmol/L [facility] LABORATORY Specimen Anatomical Collection Method Collection Time Receive d Time (Source) Location / / Volume Laterality Blood specimen 07/08/2017 4:00 AM 017 4:10 (specimen) EST AM EST Resulting Agency Comment Spec In Lab Yuan Webber MD CHEMISTRY ORDERABLES Performing Organization Address City/State/[place] [address] (ABNORMAL) Cardiac Enzymes (LEB/CGP) (07/08/2017 4:00 AM EST) P athologist Signature Troponin-T 1.88 (H) 0.00 - [facility] 0.00 ng/mL [facility] LABORATORY [...] additional sample may be indicated. Reference: Third Henderson Definition of Myocardial Infarction. Journal of the [place] [employer] 2012;60:1581-98 CK, Total 413 (H) 0 - 200 unit/L [facility] LABORATORY Comment: result [id number]-[id number] Specimen Anatomical Collection Method Collection Time Receive d Time (Source) Location / / Volume Laterality Blood specimen 07/08/2017 4:00 AM 017 4:09 (specimen) EST AM EST Resulting Agency Comment Spec In Lab Yuan Webber MD CHEMISTRY ORDERABLES Performing Organization Address City/[facility]/ZIP Code Phon e Number [address] (ABNORMAL) Glucose, fasting (07/08/2017 4:00 AM EST) P athologist Signature Glucose 287 (H) 65 - 99 [facility] Fasting mg/dL [facility] LABORATORY [...] Webber MD CHEMISTRY ORDERABLES Performing Organization Address City/[facility]/[place] [address] (ABNORMAL) Creatinine (07/08/2017 4:00 AM EST) Analysis Performed At Patho logist Time Signature Creatinine 1.55 (H) 0.80 - KATALINA ZHAORYAN 1.50 mg/dL [facility] LABOR[facility]ORY Estimated GFR 44 (L) >=60 [facility] LABORATORY Comment: The reported eGFR should be multiplied b y 1.2 for patients. The MDRD is not an appropriate measure o f renal function for patients with body mass extremes or in patients with acute kidney failure. http://[employer]/nkdep http://[employer]/DHMCnkf Specimen Anatomical Collection Method Collection Time Receive d Time (Source) Location / / Volume Laterality Blood specimen 07/08/2017 4:00 AM 017 4:09 (specimen) EST AM EST Resulting Agency Comment Spec In Lab Yuan Webber MD CHEMISTRY ORDERABLES Performing Organization Address City/[facility]/[place] [address] BUN (07/08/2017 4:00 AM EST) athologist Signature BUN 16 10 - 20 [facility] mg/dL [facility] LABOR[facility] Specimen Anatomical Collection Method Collection Time Receive d Time (Source) Location / / Volume Laterality Blood specimen 07/08/2017 4:00 AM 017 4:09 (specimen) EST AM EST Resulting Agency Comment Spec In Lab Yuan Webber MD CHEMISTRY ORDERABLES Performing Organization Address City/[facility]/[place] [address] (ABNORMAL) POCT Glucose (07/08/2017 3:00 AM EST) athologist Signature POC Glucose 273 (H) 65 - 199 [facility] mg/dL [facility] Comment: [...] City/[facility]/ZIP Code Phon e Number [address] (ABNORMAL) POCT Glucose (07/08/2017 1:57 AM EST) P athologist Signature POC Glucose 288 (H) 65 - 199 [facility] mg/dL [facility] Comment: [...] Organization Address City/State/[place] [address] (ABNORMAL) POCT Glucose (07/08/2017 1:01 AM EST) P athologist Signature POC Glucose 315 (H) 65 - 199 [facility] mg/dL [facility] Comment: [...] City/[facility]/[place] [address] (ABNORMAL) BLOOD GAS 2 ARTERIAL (07/08/2017 12:09 AM EST) P athologist Signature pH Art 7.26 7.35 - [facility] (Critical) 7.45 [facility] Comment: Noted by instrument designer. pCO2 Art 41 35 - 45 mmHg [facility] LABORATORY pO2 Art 96 85 - 104 mmHg [facility] LABORATORY HCO3 Art 17.7 (L) 20.0 - 26.0 mmol/L [facility] LABORATORY BE Art -9.4 (L) -3.0 - 3.0 mmol/L [facility] LABORATORY Hgb Blood Gas 12.4 (L) 13.7 - 16.5 gm/dL [facility] LABORATORY O2HB Art 94.7 94.0 - 97.0 % [facility] COHB Art 0.2 % [facility] Comment: Noted by instrument designer. FIO2 Art 40 % [facility] PF Ratio Art 240 [facility] Specimen Anatomical Collection Method Collection Time Receive d Time (Source) Location / / Volume Laterality Blood specimen Arterial Draw / 07/08/2017 12:09 2016 5:31 (specimen) Unknown AM EST AM EST Resulting Agency Comment Spec In Lab Samy Maldonado MD CHEMISTRY ORDERABLES Performing Organization Address City/State/[place] [address] (ABNORMAL) POCT Glucose (07/07/2017 10:56 PM EST) P athologist Signature POC Glucose 292 (H) 65 - 199 [facility] mg/dL [facility] Comment: [...] Organization Address City/State/[place] [address] (ABNORMAL) BLOOD GAS 2 ARTERIAL (07/07/2017 10:04 PM EST) athologist Signature pH Art 7.22 7.35 - [facility] (Critical) 7.45 [facility] Comment: Noted by instrument designer. pCO2 Art 42 35 - 45 mmHg [facility] pO2 Art 94 85 - 104 mmHg [facility] HCO3 Art 16.9 (L) 20.0 - 26.0 mmol/L [facility] BE Art -10.7 (L) -3.0 - 3.0 mmol/L [facility] Hgb Blood Gas 13.0 (L) 13.7 - 16.5 gm/dL [facility] O2HB Art 93.8 (L) 94.0 - 97.0 % [facility] COHB Art 0.7 % [facility] Comment: Noted by instrument designer. FIO2 Art 40 % [facility] PF Ratio Art 235 [facility] Specimen Anatomical Collection Method Collection Time Receive d Time (Source) Location / / Volume Laterality Blood specimen 07/07/2017 10:04 7 (specimen) PM EST 10:04 PM EST Daphne Shahid MD CHEMISTRY ORDERABLES Performing Organization Address City/[facility]/ZIP Code Phon e Number [address] (ABNORMAL) Hemoglobin (07/07/2017 10:00 PM EST) P athologist Signature Hemoglobin 12.8 (L) 13.7 - [facility] 16.5 gm/dL [facility] Specimen Anatomical Collection Method Collection Time Receive d Time (Source) Location / / Volume Laterality Blood specimen 07/07/2017 10:00 7 (specimen) PM EST 10:13 PM EST Resulting Agency Comment Spec In Lab Yuan Webber MD HEMATOLOGY ORDERABLES Performing Organization Address City/[facility]/[place] [address] (ABNORMAL) Potassium (07/07/2017 10:00 PM EST) P athologist Signature Potassium 3.4 (L) 3.5 - 5.0 [facility] mmol/L [facility] Comment: [...] Organization Address City/State/[place] [address] (ABNORMAL) POCT Glucose (07/07/2017 8:49 PM EST) P athologist Signature POC Glucose 241 (H) 65 - 199 [facility] mg/dL [facility] Comment: [...] City/[facility]/[place] [address] Prepare Albumin 5% in [...] Organization Address City/State/[place] [address] EKG 12 Lead (07/07/2017 7:17 PM EST) Component Value Ref Range Test Analysis Performed Pathologis t Method Time At Signature Ventricular rate 75 BPM MUSE SYSTEM Atrial Rate 75 BPM MUSE SYSTEM P-R Interval 168 ms MUSE SYSTEM QRS Duration 104 ms MUSE SYSTEM Q-T Interval 462 ms MUSE SYSTEM QTC Calculated 515 ms MUSE SYSTEM (Bezet) Calculated P [place] 52 degrees MUSE SYSTEM Calculated R [place] -40 degrees MUSE SYSTEM Calculated T [place] 39 degrees MUSE SYSTEM INTERPRETATION Normal [...] athologist Signature pH Art 7.21 7.35 - [facility] (Critical) 7.45 [facility] Comment: Noted by instrument designer. pCO2 Art 50 (H) 35 - 45 mmHg [facility] pO2 Art 238 (H) 85 - 104 mmHg [facility] HCO3 Art 19.8 (L) 20.0 - 26.0 mmol/L [facility] BE Art -8.1 (L) -3.0 - 3.0 mmol/L [facility] Hgb Blood Gas 12.8 (L) 13.7 - 16.5 gm/dL [facility] O2HB Art 97.5 (H) 94.0 - 97.0 % [facility] COHB Art 0.5 % [facility] Comment: Noted by instrument designer. Please note: Patients with WBC >100,000 [...] [facility]ENTER [facility] Comment: Noted by instrument designer. FIO2 Art 100 % [facility] PF Ratio Art 238 [facility] Specimen Anatomical Collection Method Collection Time Receive d Time (Source) Location / / Volume Laterality Blood specimen 07/07/2017 6:57 PM 017 6:57 (specimen) EST PM EST Daphne Shahid MD CHEMISTRY ORDERABLES Performing Organization Address City/State/[place] [address] (ABNORMAL) BLOOD GAS 2 ARTERIAL (07/07/2017 5:31 PM EST) athologist Signature pH Art 7.29 7.35 - [facility] (Critical) 7.45 [facility] Comment: Noted by instrument designer. pCO2 Art 48 (H) 35 - 45 mmHg [facility] pO2 Art 137 (H) 85 - 104 mmHg [facility] HCO3 Art 22.4 20.0 - 26.0 mmol/L [facility] BE Art -4.3 (L) -3.0 - 3.0 mmol/L [facility] Hgb Blood Gas 10.0 (L) 13.7 - 16.5 gm/dL [facility] O2HB Art 97.3 (H) 94.0 - 97.0 % [facility] COHB Art 0.3 % [facility] [...] Shahid MD CHEMISTRY ORDERABLES Performing Organization Address City/[facility]/ZIP Code Phon e Number [address] Fibrinogen (07/07/2017 5:30 PM EST) P athologist Signature Fibrinogen 224 180 - 510 [facility] mg/dL [facility] Comment: [...] Perez MD HEMATOLOGY ORDERABLES Performing Organization Address City/[facility]/ZIP [facility] Phon e Number [address] APTT (07/07/2017 5:30 PM [...] Perez MD HEMATOLOGY ORDERABLES Performing Organization Address City/[facility]/ZIP Code Phon e Number [address] (ABNORMAL) Prothrombin Time (07/07/2017 [...] Perez MD HEMATOLOGY ORDERABLES Performing Organization Address City/[facility] [place] [address] (ABNORMAL) Hemogram (07/07/2017 5:30 PM EST) P athologist Signature WBC 19.6 (H) 4.0 - 9.5 [facility] x10(3)/[facility] LABORATORY RBC 3.08 (L) 4.58 - [facility] 5.54 [facility] x10(6)/[facility] LABORATORY Hemoglobin 9.2 (L) 13.7 - [facility] 16.5 gm/dL [facility] Hematocrit 28.0 (L) 40.5 - [facility] 48.5 % [facility] Comment: This result has been called to MONICA MORAN by DONALD GROSSMAN on 07 07 2017 at 1759, and has been read back. MCV 90.9 82.9 - 93.1 [facility] LABORATORY MCH 29.9 27.5 - 32.1 pg [facility] MCHC 32.9 32.0 - 35.7 gm/dL [facility] Platelets 155 145 - 357 x10(3)/[facility] LABORATORY RDWSD 46.5 (H) 36.0 - 45.0 [facility] LABORATORY RDWCV 14.1 (H) 11.4 - 13.8 % [facility] MPV 9.5 7.6 - 12.9 [facility] LABORATORY nRBC % Auto 0.0 % [facility] nRBC Abs Auto 0.000 0.000 - 0.000 x10(3)/[facility] LABORATORY Specimen Anatomical Collection Method Collection Time Receive d Time (Source) Location / / Volume Laterality Blood specimen 07/07/2017 5:30 PM 017 5:34 (specimen) EST PM EST Resulting Agency Comment Spec In Lab Yifan Perez MD HEMATOLOGY ORDERABLES Performing Organization Address City/State/[place] [address] Prepare Platelets, Apheresis (07/07/2017 5:00 PM EST) P athologist Signature Dispensed? Yes [facility] Specimen Anatomical Collection Method Collection Time Receive d Time (Source) Location / / Volume Laterality Blood specimen 07/07/2017 5:00 PM 017 4:58 (specimen) EST PM EST Daphne Shahid MD BLOOD BANK ORDERABLES Performing Organization Address City/State/[place] [address] Platelet count (07/07/2017 4:55 PM EST) athologist Signature Platelets 177 145 - 357 [facility] x10(3)/[facility] LABORATORY Plat Immature 1.5 0.0 - 7.4 [facility] % % [facility] Comment: Limitation of the Immature Platelet Frac tion (IPF)-May be less reliable when the platelet count is less than 58q471/u L due to statistical imprecision. The IPF [...] in a decreased state of production. References: [employer] The Clinical Value of the Immature Platelet Fraction (IPF) in Cell Recovery Document Number 10-1143 12/2010 [employer] The Role of the Imm ature [...] Organization Address City/State/[place] [address] [facility] LAB[address]ATORY Drive (ABNORMAL) Hemoglobin and Hematocrit, blood (07/07/2017 4:55 PM EST) athologist Signature Hemoglobin 9.1 (L) 13.7 - 16.5 [facility] gm/dL [facility] Comment: [...] Organization Address City/State/[place] [address] (ABNORMAL) BLOOD GAS 2 ARTERIAL (07/07/2017 4:38 PM EST) Analysis Performed At Patho logist Time Signature pH Art 7.37 7.35 - [facility] 7.45 [facility] pCO2 Art 44 35 - 45 [facility] mmHg [facility] pO2 Art 322 (H) 85 - 104 [facility] LABORATORY HCO3 Art 24.9 20.0 - [facility] 26.0 [facility] mmol/[facility] LABORATORY BE Art -0.4 -3.0 - 3.0 [facility] mmol/L [facility] Hgb Blood Gas 10.1 (L) 13.7 - [facility] 16.5 gm/dL [facility] O2HB Art 98.7 (H) 94.0 - [facility] 97.0 % [facility] COHB Art 0.1 % [facility] Comment: Noted by instrument designer. Note: ??Total bilirubin higher than 20 m g/dL may lead to falsely low ionized calcium. CL Whole Blood 101 98 - 107 mmol/L [facility] Gluc Whole Bld 295 (H) 65 - 199 mg/dL [facility] Comment: Diabetes: >=200 mg/dL plus symp toms. Lactate WB 1.7 0.5 - 2.2 mmol/L [facility] Specimen Anatomical Collection Method Collection Time Receive d Time (Source) Location / / Volume Laterality Blood specimen 07/07/2017 4:38 PM 017 4:38 (specimen) EST PM EST Daphne Shahid MD CHEMISTRY ORDERABLES Performing Organization Address City/State/[place] [address] (ABNORMAL) BLOOD GAS 2 VENOUS (07/07/2017 4:06 PM EST) Analysis Performed At Patho logist Time Signature pH Cody 7.31 (L) 7.32 - [facility] 7.42 [facility] pCO2 Cody 47 41 - 51 [facility] LABORATORY pO2 [place] 53 (H) 25 - 40 [facility] LABORATORY HCO3 Cody 22.7 mmol/L [facility] BE Cody -3.7 mmol/L [facility] Hgb Blood Gas 10.2 (L) 13.7 - [facility] 16.5 gm/dL [facility] O2HB [place] 81.0 % [facility] Comment: Noted by instrument designer. Note: ??Total bilirubin higher than 20 m g/dL may lead to falsely low ionized calcium. CL Whole Blood 100 98 - 107 mmol/L [facility] Gluc Whole Bld 231 (H) 65 - 199 mg/dL [facility] Comment: Diabetes: >=200 mg/dL plus symp toms Lactate WB 1.1 0.5 - 2.2 mmol/L [facility] BGas Source Venous [facility] Specimen Anatomical Collection Method Collection Time Receive d Time (Source) Location / / Volume Laterality Blood specimen 07/07/2017 4:06 PM 017 4:06 (specimen) EST PM EST Daphne Shahid MD CHEMISTRY ORDERABLES Performing Organization Address City/State/[place] [address] (ABNORMAL) BLOOD GAS 2 ARTERIAL (07/07/2017 4:05 PM EST) Analysis Performed At Patho logist Time Signature pH Art 7.36 7.35 - [facility] 7.45 [facility] pCO2 Art 40 35 - 45 [facility] mmHg [facility] pO2 Art 282 (H) 85 - 104 [facility] LABORATORY HCO3 Art 22.1 20.0 - [facility] 26.0 [facility] mmol/L [facility] BE Art -3.4 (L) -3.0 - 3.0 [facility] mmol/L [facility] Hgb Blood Gas 10.2 (L) 13.7 - [facility] 16.5 gm/dL [facility] O2HB Art 98.4 (H) 94.0 - [facility] 97.0 % [facility] COHB Art 0.3 % [facility] Comment: Noted by instrument designer. Note: ??Total bilirubin higher than 20 m g/dL may lead to falsely low ionized calcium. CL Whole Blood 101 98 - 107 mmol/L [facility] Gluc Whole Bld 260 (H) 65 - 199 mg/dL [facility] Comment: Diabetes: >=200 mg/dL plus symp toms. Lactate WB 1.4 0.5 - 2.2 mmol/L [facility] Specimen Anatomical Collection Method Collection Time Receive d Time (Source) Location / / Volume Laterality Blood specimen 07/07/2017 4:05 PM 017 4:05 (specimen) EST PM EST Daphne Shahid MD CHEMISTRY ORDERABLES Performing Organization Address City/State/[place] [address] (ABNORMAL) BLOOD GAS 2 ARTERIAL (07/07/2017 2:29 PM EST) Analysis Performed At Patho logist Time Signature pH Art 7.43 7.35 - [facility] 7.45 [facility] pCO2 Art 36 35 - 45 [facility] LABORATORY pO2 Art 221 (H) 85 - 104 [facility] LABORATORY HCO3 Art 23.2 20.0 - [facility] 26.0 [facility] mmol/L [facility] BE Art -1.2 -3.0 - 3.0 [facility] mmol/L [facility] Hgb Blood Gas 13.9 13.7 - [facility] 16.5 gm/dL [facility] O2HB Art 97.8 (H) 94.0 - [facility] 97.0 % [facility] COHB Art 1.1 % [facility] [...] Lactate WB 1.5 0.5 - 2.2 mmol/L [facility] Specimen Anatomical Collection Method Collection Time Receive d Time (Source) Location / / Volume Laterality Blood specimen 07/07/2017 2:29 PM 017 2:29 (specimen) EST PM EST Daphne Shahid MD CHEMISTRY ORDERABLES Performing Organization Address City/State/[place] [address] Prepare Coag Factors (Non-Hemophilia) (07/07/2017 1:25 PM EST) P athologist Signature Dispensed? Yes [facility] Specimen Anatomical Collection Method Collection Time Receive d Time (Source) Location / / Volume Laterality Blood specimen 07/07/2017 1:25 PM 017 1:21 (specimen) EST PM EST Daphne Shahid MD BLOOD BANK ORDERABLES Performing Organization Address City/State/ZIP Code Phon e Number [address] Prepare RBC (07/07/2017 1:10 PM EST) P athologist Signature Dispensed? Yes [facility] Specimen Anatomical Collection Method Collection Time Receive d Time (Source) Location / / Volume Laterality Blood specimen 07/07/2017 1:10 PM 017 1:05 (specimen) EST PM EST Daphne Shahid MD BLOOD BANK ORDERABLES Performing Organization Address City/[facility]/ZIP Code Phon e Number [address] POCT Glucose (07/07/2017 11:56 AM EST) P athologist Signature POC Glucose 188 65 - 199 [facility] Comment: [...] City/[facility]/[place] [address] POCT Glucose (07/07/2017 11:05 AM EST) P athologist Signature POC Glucose 168 65 - [address] [facility] mg/dL [facility] Comment: [...] Organization Address City/State/[place] [address] POCT Glucose (07/07/2017 10:02 AM EST) athologist Signature POC Glucose 191 65 - 199 [facility] mg/dL [facility] Comment: [...] Address City/State/ZIP Code Phon e Number [address] POCT Glucose (07/07/2017 7:53 AM EST) athologist Signature POC Glucose 178 65 - [address] [facility] mg/dL [facility] Comment: [...] Organization Address City/State/[place] [address] POCT Glucose (07/07/2017 7:03 AM EST) athologist Signature POC Glucose 188 65 - 199 [facility] mg/dL [facility] Comment: [...] Organization Address City/State/[place] [address] (ABNORMAL) POCT Glucose (07/07/2017 6:17 AM EST) athologist Signature POC Glucose 207 (H) 65 - 199 [facility] mg/dL [facility] Comment: [...] Organization Address City/State/ZIP Code Phon e Number [place] [id number] [address]OS[address] LAB[address] Drive Differential, Automated (07/07/2017 5:15 AM EST) athologist [facility] Neutrophils % 69.7 % [facility] Neutr Abs (ANC) 5.32 1.70 - [facility] 6.10 [facility] x10(3)/[facility] LABORATORY Lymphocytes % 16.3 % [facility] Lymphocytes Abs 1.2 0.9 - 3.2 [facility] x10(3)/[facility] LABORATORY Monocytes % 10.5 % [facility] Monocyte Abs 0.8 0.3 - 0.9 [facility] x10(3)/[facility] LABORATORY Eosinophils % 2.5 % [facility] Eosinophils Abs 0.2 0.0 - 0.4 [facility] x10(3)/[facility] LABORATORY Basophils % 0.7 % [facility] Basophils Abs 0.0 0.0 - 0.1 [facility] x10(3)/[facility] LABORATORY Immature Gran % 0.30 % [...] Melisa Gran Abs 0.02 0.00 - 0.04 x10(3)/[facility] LABORATORY Specimen Anatomical Collection Method Collection Time Receive d Time (Source) Location / / Volume Laterality Blood specimen 07/07/2017 5:15 AM 017 5:34 (specimen) EST AM EST Resulting Agency Comment Spec In Lab Daphne Shahid MD HEMATOLOGY ORDERABLES Performing Organization Address City/State/[place] [address] (ABNORMAL) Hemogram (07/07/2017 5:15 AM EST) Analysis Performed At Patho logist Time Signature WBC 7.6 4.0 - 9.5 [facility] x10(3)/[facility] LABORATORY RBC 4.82 4.58 - [facility] 5.54 [facility] x10(6)/[facility] LABORATORY Hemoglobin 14.4 13.7 - [facility] 16.[facility] gm/dL [facility] Hematocrit 42.1 40.5 - [facility] 48.5 % [facility] MCV 87.3 82.9 - [facility] 93.[address] [facility] LABORATORY MCH 29.9 27.5 - [facility] 32.1 pg [facility] MCHC 34.2 32.0 - [facility] 35.7 gm/dL [facility] Platelets 188 145 - 357 [facility] x10(3)/[facility] LABORATORY RDWSD 45.1 (H) 36.0 - [facility] 45.[address] [facility] LABORATORY RDWCV 14.3 (H) 11.4 - [facility] 13.8 % [facility] MPV 9.4 7.6 - 12.9 [facility] LABORATORY nRBC % Auto 0.0 % [facility] nRBC Abs Auto 0.000 0.000 - [facility] 0.000 [facility] x10(3)/[facility] LABORATORY Specimen Anatomical Collection Method Collection Time Receive d Time (Source) Location / / Volume Laterality Blood specimen 07/07/2017 5:15 AM 017 5:34 (specimen) EST AM EST Resulting Agency Comment Spec In Lab Daphne Shahid MD HEMATOLOGY ORDERABLES Performing Organization Address City/State/[place] [address] (ABNORMAL) APTT (07/07/2017 5:15 [...] Shahid MD HEMATOLOGY ORDERABLES Performing Organization Address City/[facility]/[place] [address] Magnesium (07/07/2017 5:15 AM EST) athologist Signature Magnesium 0.94 0.69 - 1.07 [facility] mmol/L [facility] Specimen Anatomical Collection Method Collection Time Receive d Time (Source) Location / / Volume Laterality Blood specimen 07/07/2017 5:15 AM 017 5:34 (specimen) EST AM EST Resulting Agency Comment Spec In Lab Daphne Shahid MD CHEMISTRY ORDERABLES Performing Organization Address City/[facility]/[place] [address] (ABNORMAL) Basic Metabolic Panel (non-fasting) (07/07/2017 5:15 AM EST) athologist Signature Glucose Lvl 203 (H) 65 - 199 [facility] mg/dL [facility] Comment: [...] or in patients with acute kidney failure. [email or web address] [email or web address] Specimen Anatomical Collection Method Collection Time Receive d Time (Source) Location / / Volume Laterality Blood specimen 07/07/2017 5:15 AM 017 5:34 (specimen) EST AM EST Resulting Agency Comment Spec In Lab Daphne Shahid MD CHEMISTRY ORDERABLES Performing Organization Address City/State/[place] [address] (ABNORMAL) Cardiac Enzymes (LEB/CGP) (07/07/2017 5:15 AM EST) P athologist Signature Troponin-T 2.07 (H) 0.00 - [facility] 0.00 ng/mL [facility] [...] additional sample may be indicated. Reference: Third Henderson Definition of Myocardial Infarction. Journal of the [place] [employer] 2012;60:1581-98 CK, Total 88 0 - 200 unit/L [facility] Specimen Anatomical Collection Method Collection Time Receive d Time (Source) Location / / Volume Laterality Blood specimen 07/07/2017 5:15 AM 017 5:34 (specimen) EST AM EST Resulting Agency Comment Spec In Lab Daphne Shahid MD CHEMISTRY ORDERABLES Performing Organization Address City/[facility]/ZIP Code Phon e Number [address] POCT Glucose (07/07/2017 5:01 AM EST) athologist Signature POC Glucose 182 65 - 199 [facility] mg/dL [facility] Comment: Supplemental ranges: <140 mg/dL before meals <180 mg/dL all other times of the day Specimen Anatomical Collection Method Collection Time Receive d Time (Source) Location / / Volume Laterality Blood specimen 07/07/2017 5:01 AM 017 5:01 (specimen) EST AM EST Daphne Shahid MD POINT OF CARE TEST ORDERABLE S Performing Organization Address City/[facility]/ZIP [facility] [place] [address] POCT Glucose (07/07/2017 4:08 AM EST) athologist Signature POC Glucose 199 65 - 199 [facility] mg/dL [facility] [facility]PITAL LAB[facility]ATORY Comment: [...] Organization Address City/State/[place] [address] POCT Glucose (07/07/2017 3:03 AM EST) athologist Signature POC Glucose 188 65 - 199 [place] RYAN mg/dL [facility] Comment: [...] Organization Address City/State/[place] [address] (ABNORMAL) POCT Glucose (07/07/2017 2:08 AM EST) athologist Signature POC Glucose 200 (H) 65 - 199 [facility] Comment: [...] Address City/State/ZIP Code Phon e Number [address] (ABNORMAL) POCT Glucose (07/07/2017 1:31 AM EST) athologist Signature POC Glucose 209 (H) 65 - 199 [facility] mg/dL [facility] Comment: [...] Organization Address City/State/ZIP Code Phon e Number [place] [id number] HOSPITAL LABORATORY [address] XR Chest PA or [...] Signature POC Glucose 161 65 - 199 [facility] mg/dL [facility] Comment: [...] Organization Address City/State/[place] [address] (ABNORMAL) APTT (07/07/2017 12:00 [...] Shahid MD HEMATOLOGY ORDERABLES Performing Organization Address City/[facility]/[place] [address] POCT Glucose (07/06/2017 9:55 PM EST) athologist Signature POC Glucose 109 65 - 199 [facility]/dL [facility] Comment: [...] City/[facility]/[place] [address] POCT Glucose (07/06/2017 9:04 PM EST) athologist Signature POC Glucose 120 65 - 199 [facility]/dL [facility] Comment: [...] City/[facility]/[place] [address] POCT Glucose (07/06/2017 7:45 PM EST) athologist Signature POC Glucose 158 65 - 199 [facility] mg/dL [facility] Comment: [...] City/[facility]/[place] [address] Potassium (07/06/2017 7:40 PM EST) athologist Signature Potassium 3.9 3.5 - 5.0 [facility] mmol/L [facility] Comment: [...] Shahid MD CHEMISTRY ORDERABLES Performing Organization Address City/[facility]/[place] [address] (ABNORMAL) Cardiac Enzymes (LEB/CGP) (07/06/2017 7:40 PM EST) athologist Signature Troponin-T 2.27 (H) 0.00 - [place] OLIVASCK 0.00 ng/mL [facility] LABORATORY [...] additional sample may be indicated. Reference: Third Henderson Definition of Myocardial Infarction. Journal of the [place] College of Cardiology 2012;60:1581-98 CK, Total 93 0 - 200 unit/L [facility] LABORATORY Specimen Anatomical Collection Method Collection Time Receive d Time (Source) Location / / Volume Laterality Blood specimen 07/06/2017 7:40 PM 017 7:52 (specimen) EST PM EST Resulting Agency Comment Spec In Lab Daphne Shahid MD CHEMISTRY ORDERABLES Performing Organization Address City/State/[place] [address] (ABNORMAL) POCT Glucose (07/06/2017 7:13 PM EST) athologist Signature POC Glucose 200 (H) 65 - 199 [facility] Comment: [...] City/[facility]/[place] [address] (ABNORMAL) APTT (07/06/2017 6:15 [...] Organization Address City/State/[place] [address] (ABNORMAL) POCT Glucose (07/06/2017 6:03 PM EST) athologist Signature POC Glucose 236 (H) 65 - 199 [facility]/dL [facility] Comment: [...] City/[facility]/[place] [address] (ABNORMAL) POCT Glucose (07/06/2017 5:01 PM EST) athologist Signature POC Glucose 235 (H) 65 - 199 [facility] mg/dL [facility] Comment: [...] Organization Address City/State/[place] [address] (ABNORMAL) POCT Glucose (07/06/2017 4:06 PM EST) P athologist Signature POC Glucose 202 (H) 65 - 199 [place] [facility] mg/dL [facility] [...] Organization Address City/State/[place] [address] POCT Glucose (07/06/2017 2:59 PM EST) athologist Signature POC Glucose 178 65 - 199 [place] ZHAORYAN mg/dL [facility] Comment: [...] Organization Address City/State/[place] [address] (ABNORMAL) Cardiac Enzymes (LEB/CGP) (07/06/2017 2:10 PM EST) P athologist Signature Troponin-T 2.34 (H) 0.00 - [facility] 0.00 ng/mL [facility] LABORATORY [...] additional sample may be indicated. Reference: Third Henderson Definition of Myocardial Infarction. Journal of the [place] College of Cardiology 2012;60:1581-98 CK, Total 101 0 - 200 unit/L [facility] LAB[facility] Specimen Anatomical Collection Method Collection Time Receive d Time (Source) Location / / Volume Laterality Blood specimen 07/06/2017 2:10 PM 017 2:26 (specimen) EST PM EST Resulting Agency Comment Spec In Lab Daphne Shahid MD CHEMISTRY ORDERABLES Performing Organization Address City/State/[place] [address] POCT Glucose (07/06/2017 2:08 PM EST) P athologist Signature POC Glucose 192 65 - 199 [facility] mg/dL [facility] Comment: [...] Address City/State/ZIP Code Phon e Number [address] POCT Glucose (07/06/2017 1:04 PM EST) P athologist Signature POC Glucose 162 65 - 199 [facility]dL [facility] Comment: [...] City/[facility]/ZIP Code Phon e Number [address] POCT Glucose (07/06/2017 12:05 PM EST) P athologist Signature POC Glucose 196 65 - 199 [facility] mg/dL [facility] Comment: [...] Organization Address City/State/[place] [address] EKG 12 Lead (07/06/2017 12:00 PM EST) Component Value Ref Range Test Analysis Performed Pathologis t Method Time At Signature Ventricular rate 91 BPM MUSE SYSTEM Atrial Rate 91 BPM MUSE SYSTEM P-R Interval 140 ms MUSE SYSTEM QRS Duration 94 ms MUSE SYSTEM Q-T Interval 394 ms MUSE SYSTEM QTC Calculated 484 ms MUSE SYSTEM (Bezet) Calculated P [place] 36 degrees MUSE SYSTEM Calculated R [place] -19 degrees MUSE SYSTEM Calculated T [place] 104 degrees MUSE SYSTEM INTERPRETATION Normal sinus rhythm MUSE SYSTEM 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) ST & T wave abnormality, consider lateral ischemia Abnormal ECG When compared with ECG of 05-JUL-2017 20:39, No significant change was found Confirmed by MD Luci, Taurus Braun ([id number]) on 07/06/2017 5:07:33 PM Specimen Anatomical Collection Method Collection Time Receive d Time (Source) Location / / Volume Laterality 07/06/2017 12:00 07/06/2017 5:07 PM EST PM EST Daphne Shahid MD ECG ORDERABLES Performing Organization Address City/[facility]/ZIP Code Phon e Number MUSE SYSTEM ABORH Recheck Status (07/06/2017 12:00 PM EST) [facility] Method Time Signature ABORH Type Completed [facility] LABORATORY Specimen Anatomical Collection Method Collection Time Receive d Time (Source) Location / / Volume Laterality Blood specimen 07/06/2017 12:00 7 (specimen) PM EST 12:24 PM EST Resulting Agency Comment Spec In Lab Daphne Shahid MD BLOOD BANK ORDERABLES Performing Organization Address City/[facility]/[place] [address] Antibody screen (07/06/2017 12:00 PM EST) [facility] Method Time Signature Ab Screen Negative [facility] LABORATORY Expires at 07/09/2017 [facility] 235 on: [facility] Specimen Anatomical Collection Method Collection Time Receive d Time (Source) Location / / Volume Laterality Blood specimen 07/06/2017 12:00 7 (specimen) PM EST 12:24 PM EST Resulting Agency Comment Spec In Lab Daphne Shahid MD BLOOD BANK ORDERABLES Performing Organization Address City/[facility]/[place] [address] ABO/Rh Typing (07/06/2017 12:00 [...] Organization Address City/State/[place] [address] Prothrombin Time (07/06/2017 11:24 [...] Shahid MD HEMATOLOGY ORDERABLES Performing Organization Address City/[facility]/[place] [address] (ABNORMAL) APTT (07/06/2017 11:24 [...] Address City/State/ZIP Code Phon e Number [address] POCT Glucose (07/06/2017 11:02 AM EST) athologist Signature POC Glucose 187 65 - 199 [place] ZHAORYAN mg/dL [facility] Comment: [...] Organization Address City/State/[place] [address] POCT Glucose (07/06/2017 10:18 AM EST) athologist Signature POC Glucose 193 65 - 199 [place] ZHAORYAN mg/dL [facility] Comment: [...] Organization Address City/State/[place] [address] POCT Glucose (07/06/2017 9:25 AM EST) athologist Signature POC Glucose 182 65 - 199 [place] ZHAORYAN mg/dL [facility] Comment: [...] Organization Address City/State/[place] [address] (ABNORMAL) Cardiac Enzymes (LEB/CGP) (07/06/2017 8:10 AM EST) athologist Signature Troponin-T 2.26 (H) 0.00 - [facility] ng/mL [facility] LABORATORY [...] additional sample may be indicated. Reference: Third Henderson Definition of Myocardial Infarction. Journal of the [place] College of Cardiology 2012;60:1581-98 CK, Total 124 0 - 200 unit/L [facility] LABORATORY Specimen Anatomical Collection Method Collection Time Receive d Time (Source) Location / / Volume Laterality Blood specimen 07/06/2017 8:10 AM 017 8:23 (specimen) EST AM EST Resulting Agency Comment Spec In Lab Daphne Shahid MD CHEMISTRY ORDERABLES Performing Organization Address City/State/[place] [address] Magnesium (07/06/2017 8:10 AM EST) athologist Signature Magnesium 0.84 0.69 - 1.07 [facility] mmol/L [facility] Specimen Anatomical Collection Method Collection Time Receive d Time (Source) Location / / Volume Laterality Blood specimen 07/06/2017 8:10 AM 017 8:21 (specimen) EST AM EST Resulting Agency Comment Spec In Lab Daphne Shahid MD CHEMISTRY ORDERABLES Performing Organization Address City/[facility]/[place] [address] (ABNORMAL) Basic Metabolic Panel (non-fasting) (07/06/2017 8:10 AM EST) P athologist Signature Glucose Lvl 199 65 - 199 [facility] mg/dL [facility] Comment: [...] or in patients with acute kidney failure. http://[employer]/DHnkdep http://[employer]/DHMCnkf Specimen Anatomical Collection Method Collection Time Receive d Time (Source) Location / / Volume Laterality Blood specimen 07/06/2017 8:10 AM 017 8:21 (specimen) EST AM EST Resulting Agency Comment Spec In Lab Daphne Shahid MD CHEMISTRY ORDERABLES Performing Organization Address City/State/[place] [address] POCT Glucose (07/06/2017 7:34 AM EST) P athologist Signature POC Glucose 198 65 - 199 [facility] Comment: [...] Address City/State/ZIP Code Phon e Number [address] POCT Glucose (07/06/2017 7:03 AM EST) athologist Signature POC Glucose 181 65 - 199 [facility] mg/dL [facility] Comment: [...] Organization Address City/State/[place] [address] XR Chest PA or [...] Signature POC Glucose 172 65 - 199 [facility] mg/dL [facility] Comment: [...] Organization Address City/State/[place] [address] POCT Glucose (07/06/2017 5:08 AM EST) athologist Signature POC Glucose 154 65 - 199 [facility] mg/dL [facility] Comment: [...] Address City/State/ZIP Code Phon e Number [address] POCT Glucose (07/06/2017 4:05 AM EST) athologist Signature POC Glucose 142 65 - 199 [facility] Comment: [...] Address City/State/ZIP Code Phon e Number [address] POCT Glucose (07/06/2017 3:00 AM EST) athologist Signature POC Glucose 116 65 - 199 [facility]dL [facility] Comment: [...] Address City/State/ZIP Code Phon e Number [address] Potassium (07/06/2017 2:20 AM EST) athologist Signature Potassium 3.9 3.5 - 5.0 [facility] mmol/L [facility] Comment: [...] Organization Address City/State/[place] [address] Differential, Automated (07/06/2017 2:20 AM EST) athologist Signature Neutrophils % 72.9 % [facility] LABORATORY Neutr Abs (ANC) 5.53 1.70 - [facility] 6.10 [facility] x10(3)/[facility] LABORATORY Lymphocytes % 16.4 % [facility] Lymphocytes Abs 1.2 0.9 - 3.2 [facility] x10(3)/[facility] LABORATORY Monocytes % 9.4 % [facility] Monocyte Abs 0.7 0.3 - 0.9 [facility] x10(3)/[facility] LABORATORY Eosinophils % 0.5 % [facility] Eosinophils Abs 0.0 0.0 - 0.4 [facility] x10(3)/[facility] LABORATORY Basophils % 0.4 % [facility] Basophils Abs 0.0 0.0 - 0.1 [facility] x10(3)/[facility] LABORATORY Immature Gran % 0.40 % [facility] Comment: Immature granulocytes(IG's)percentage an d absolute count will include metamyelocytes, myelocytes, and promyelo cytes. Blood smears from CBCs yielding IG's will be scanned manually for concor dance. If this scan disagrees with the automated IG or if promyelocytes are not ed, a manual differential will be performed. Melisa Gran Abs 0.03 0.00 - 0.04 x10(3)/[facility] LABORATORY Specimen Anatomical Collection Method Collection Time Receive d Time (Source) Location / / Volume Laterality Blood specimen 07/06/2017 2:20 AM 017 2:33 (specimen) EST AM EST Resulting Agency Comment Spec In Lab Daphne Shahid MD HEMATOLOGY ORDERABLES Performing Organization Address City/[facility]/[place] [address] (ABNORMAL) Hemogram (07/06/2017 2:20 AM EST) Analysis Performed At Patho logist Time Signature WBC 7.6 4.0 - 9.5 [facility] x[facility](3)/[facility] LABORATORY RBC 4.52 (L) 4.58 - [place] RYAN 5.54 [facility] x10(6)/[facility] LABORATORY Hemoglobin 13.4 (L) 13.7 - [facility] 16.5 gm/dL [facility] Hematocrit 39.7 (L) 40.5 - [facility] 48.5 % [facility] LABORATORY MCV 87.8 82.9 [facility] 93.[address] [facility] LABORATORY MCH 29.6 27.5 - [place] RYAN 32.1 pg [facility] LABORAT[facility] MCHC 33.8 32.0 - [facility] 35.7 gm/dL [facility]ORY Platelets 189 145 - 357 [facility] x10(3)/[facility] LABORATORY RDWSD 45.6 (H) 36.0 - [facility] 45.[address] [facility] LABORATORY RDWCV 14.3 (H) 11.4 - [facility] 13.8 % [facility] LABORATORY MPV 9.1 7.6 - 12.9 [facility] nRBC % Auto 0.0 % [facility] LABORATORY nRBC Abs Auto 0.000 0.000 - [place] RYAN 0.000 [facility] x10(3)/[facility] LABORATORY Specimen Anatomical Collection Method Collection Time Receive d Time (Source) Location / / Volume Laterality Blood specimen 07/06/2017 2:20 AM 017 2:33 (specimen) EST AM EST Resulting Agency Comment Spec In Lab Daphne Shahid MD HEMATOLOGY ORDERABLES Performing Organization Address City/State/ZIP Code Ph[place] [address] (ABNORMAL) APTT (07/06/2017 2:20 [...] Shahid MD HEMATOLOGY ORDERABLES Performing Organization Address City/[facility]/Z[place] [address] POCT Glucose (07/06/2017 2:20 AM EST) athologist Signature POC Glucose 115 65 - 199 [facility] mg/dL [facility] Comment: [...] Organization Address City/State/[place] [address] (ABNORMAL) Cardiac Enzymes (LEB/CGP) (07/06/2017 2:20 AM EST) athologist Signature Troponin-T 2.13 (H) 0.00 - [facility] 0.00 ng/mL [facility] LABORATORY [...] additional sample may be indicated. Reference: Third Henderson Definition of Myocardial Infarction. Journal of the [place] College of Cardiology 2012;60:1581-98 CK, Total 129 0 - 200 unit/L [facility] LABORATORY Specimen Anatomical Collection Method Collection Time Receive d Time (Source) Location / / Volume Laterality Blood specimen 07/06/2017 2:20 AM 017 2:33 (specimen) EST AM EST Resulting Agency Comment Spec In Lab Daphne Shahid MD CHEMISTRY ORDERABLES Performing Organization Address City/State/ZIP Code Phon e Number [place] [id number] HOSPITAL LABORATORY Drive (ABNORMAL) Hemoglobin A1c (07/06/2017 [...] [id number] Est Avg Gluc See note mg/dL [facility] [...] into estimated average glucose values. ??Diabetes Care 2008:31(8):9483-8558. Specimen Anatomical Collection Method Collection Time Receive d Time (Source) Location / / Volume Laterality Blood specimen 07/06/2017 2:20 AM 017 2:34 (specimen) EST AM EST Resulting Agency Comment Spec In Lab Daphne Shahid MD CHEMISTRY ORDERABLES Performing Organization Address City/State/[place] [address] (ABNORMAL) Lipid Panel (07/06/2017 2:20 AM EST) [facility] Method Time Signature Chol, Total 150 <=239 [place] mg/dL [facility] LABORATORY Triglycerides 129 <=199 [place] mg/dL [facility] LABORATORY HDL 32 (L) >=40 [place] mg/dL [facility] LABORATORY LDL Cholesterol 92 <=190 [place] mg/dL [facility] LABORATORY Chol/HDL Ratio 4.[address] [facility] LABORATORY Lipid See Note [place]AT[place]INA Hernandes [facility] LABORATORY Comment: Lipid management should be guided by a p atient? s ASCVD risk, goals and preferences. ACC/AHA Guidelines recommend high intens ity statin if clinical ASCVD or LDL greater than or equal to 190 mg/dL. http://[employer].com/EZJ-DSO-Blsmyudah Adults aged 40-75 with LDL 70-189 mg/dL should have their 10 year ASCVD risk estimated with the ACC/AHA ASCVD risk es timator http://tools.acc.org/SGPEI-Djby-Ppmvwott r/ Statin should be discussed if risk [...] Organization Address City/State/[place] [address] POCT Glucose (07/06/2017 1:09 AM EST) P athologist Signature POC Glucose 121 65 - 199 [facility] mg/dL [facility] Comment: [...] Organization Address City/State/[place] [address] POCT Glucose (07/06/2017 12:06 AM EST) athologist Signature POC Glucose 147 65 - [address] [facility] mg/dL [facility] Comment: [...] Organization Address City/State/[place] [address] (ABNORMAL) POCT Glucose (07/05/2017 10:56 PM EST) athologist Signature POC Glucose 200 (H) 65 - 199 [facility] Comment: [...] Organization Address City/State/[place] [address] (ABNORMAL) POCT Glucose (07/05/2017 10:05 PM EST) athologist Signature POC Glucose 225 (H) 65 - 199 [place] RYAN mg/dL [facility] Comment: [...] Organization Address City/State/[place] [address] (ABNORMAL) POCT Glucose (07/05/2017 9:02 PM EST) P athologist Signature POC Glucose 301 (H) 65 - 199 [place] DAVIS mg/dL [facility] Comment: [...] Organization Address City/State/[place] [address] XR Chest PA or [...] 474 ms MUSE SYSTEM (Bezet) Calculated P [place] 50 degrees MUSE SYSTEM Calculated R [place] -28 degrees MUSE SYSTEM Calculated T [place] 90 degrees MUSE SYSTEM INTERPRETATION Sinus [...] Neutr Abs (ANC) 9.08 (H) 1.70 - [facility] 6.10 [facility] x10(3)/[facility] LABORATORY Lymphocytes % 7.0 % [facility] LABORATORY Lymphocytes Abs 0.7 (L) 0.9 - 3.2 [facility] x10(3)/[facility] LABORATORY Monocytes % 3.7 % [facility] LABORATORY Monocyte Abs 0.4 0.3 - 0.9 [facility] x10(3)/[facility] LABORATORY Eosinophils % 0.1 % [facility] LABORATORY Eosinophils Abs 0.0 0.0 - 0.4 [facility] x10(3)/[facility] LABORATORY Basophils % 0.2 % [facility] LABORATORY Basophils Abs 0.0 0.0 - 0.1 [facility] x10(3)/[facility] LABORATORY [...] Organization Address City/State/[place] [address] (ABNORMAL) Hemogram (07/05/2017 8:20 PM EST) Analysis Performed At Patho logist Time Signature WBC 10.3 (H) 4.0 - 9.5 [facility] x10(3)/[facility] LABORATORY RBC 4.64 4.58 - [place] RYAN 5.54 [facility] x10(6)/[facility] LABORATORY Hemoglobin 14.1 13.7 - [facility] 16.5 gm/dL [facility] LABORATORY Hematocrit 40.8 40.5 - [place] RYAN 48.5 % [facility] LABORATORY MCV 87.9 82.9 - [facility] 93.1 fL [facility] LABORATORY MCH 30.4 27.5 - [place] RYAN 32.1 pg [facility] LAB[facility]ATORY MCHC 34.6 32.0 - [place] RYAN 35.7 gm/dL [facility] LABORATORY Platelets 204 145 - 357 [facility] x10(3)/[facility] LABORATORY RDWSD 46.1 (H) 36.0 - [place] RYAN 45.[address] [facility] LABORATORY RDWCV 14.5 (H) 11.4 - [facility] 13.8 % [facility] LABORATORY MPV 9.7 7.6 - 12.9 [facility] LABORATORY nRBC % Auto 0.0 % [facility] LABORATORY nRBC Abs Auto 0.000 0.000 - [place] [facility]AN 0.000 [facility] x10(3)/[facility] LABORATORY Specimen Anatomical Collection Method Collection Time Receive d Time (Source) Location / / Volume Laterality Blood specimen 07/05/2017 8:20 PM 017 8:27 (specimen) EST PM EST Resulting Agency Comment Spec In Lab Daphne Shahid MD HEMATOLOGY ORDERABLES Performing Organization Address City/[facility]/ZIP Code Phon e Number [address] APTT (07/05/2017 8:20 PM [...] Shahid MD HEMATOLOGY ORDERABLES Performing Organization Address City/[facility]/ZIP [facility] [place] [address] (ABNORMAL) Cardiac Enzymes (LEB/CGP) (07/05/2017 8:20 PM EST) athologist Signature Troponin-T 2.11 (H) 0.00 - [facility] 0.00 ng/mL [facility] LABORATORY [...] additional sample may be indicated. Reference: Third Henderson Definition of Myocardial Infarction. Journal of the [place] College of Cardiology 2012;60:1581-98 CK, Total 149 0 - 200 unit/L [facility] LABORATORY Specimen Anatomical Collection Method Collection Time Receive d Time (Source) Location / / Volume Laterality Blood specimen 07/05/2017 8:20 PM 017 8:27 (specimen) EST PM EST Resulting Agency Comment Spec In Lab Daphne Shahid MD CHEMISTRY ORDERABLES Performing Organization Address City/[facility]/[place] [address] (ABNORMAL) Magnesium (07/05/2017 8:20 PM EST) P athologist Signature Magnesium 0.68 (L) 0.69 - 1.07 [facility] mmol/L [facility] LABORATORY Specimen Anatomical Collection Method Collection Time Receive d Time (Source) Location / / Volume Laterality Blood specimen 07/05/2017 8:20 PM 017 8:27 (specimen) EST PM EST Resulting Agency Comment Spec In Lab Daphne Shahid MD CHEMISTRY ORDERABLES Performing Organization Address City/State/[place] [address] (ABNORMAL) Basic Metabolic Panel (non-fasting) (07/05/2017 8:20 PM EST) athologist Signature Glucose Lvl 321 (H) 65 - 199 [facility] mg/dL [facility] LABORATORY Comment: [...] or in patients with acute kidney failure. http://[employer]/DHnkdep http://[employer]/DHMCnkf Specimen Anatomical Collection Method Collection Time Receive d Time (Source) Location / / Volume Laterality Blood specimen 07/05/2017 8:20 PM 017 8:27 (specimen) EST PM EST Resulting Agency Comment Spec In Lab Daphne Shahid MD CHEMISTRY ORDERABLES Performing Organization Address City/State/[place] [address] (ABNORMAL) POCT Glucose (07/05/2017 7:32 PM EST) athologist Signature POC Glucose 296 (H) 65 - 199 [facility] mg/dL [facility] LABORATORY Comment: [...] Organization Address City/State/[place] [address] CARDIAC CATHETERIZATION (07/05/2017 6:47 PM EST) Anatomical Region Laterality Modality Other Specimen (Source) Anatomical Location Collection Method / Collectio n Time Received Time / Laterality Volume Narrative 07/05/2017 7:27 PM EST ?[facility] ? Cardiac Cathete rization/Intervention Report ? Patient Name: Natalya, Gregory ? Procedure Date: 07/05/2017 ? A #: [id number] ? Primary Physician: Clarisa, Jet Sampson ? Case #: [id number] ? File Name: [id number] ? Catheterization Order Number: [id number] ? [facility] ? Final Report [place], [place] ? Patient Name: ? Gregory Natalya ?ID#: ?[id number] ? : ?1945 ? Procedure Date: ? [...] presented with: non -STEMI (w/i 7 days). [place] ?[employer] angina c lass was IV. [...] angio graphy and IABP insertion in lab asst. ? Jet Mckenna, M.D. ? Electronically Signed by: Jet Sampson DeVlatrice s, M.D. ? Report Finalized: 07/05/2017 ??19:23 ? Report Last Ammended: 10/26/2017 ??10:29 ? Procedure Note Jet Mckenna MD - 10/26/2017Formatt ing of this note might be different from the original. [facility] Cardiac Catheterization/Intervention Re port Patient Name: Gregory Hoang Procedure Date: 07/05/2017 A #: [id number] Primary Physician: Jet Mckenna Case #: [id number] File Name: [id number] Catheterization Order Number: [id number] [facility] Final Report [place], [place] Patient Name: Gregory Hoang ID#: [id number] 3- : 1945 Procedure Date: July 05, [...] presented with: non-STEMI ( w/i 7 days). [place] [employer] angina class was IV. No [...] angiograph y and IABP insertion in lab asst. Jet Mckenna M.D. Electronically Signed by: Jet [...] Mccollum ? (Age): 1945(72y) Med Rec#: ? [id number] ?Sex: ?M ? Site Loc: ? [facility] ?Ht / Wt: ??173(cm)/86(kg) Pt. Loc: ?[facility] ? BSA: ?2 Study Date: ?? 07/05/2017 ?Pt. Type: Inpatient Tape: ? Referring: Daphne Shahid ([id number]) Referring: MANDA ALCANTAR Reading: Blade Preston ([id number]) Fleet Maintenance Foreman: Dayami Paula BA, [facility] Diagnosis: *ICD-10-PCS Non-ST elevation (NSTEMI) m [...] E-wave Vmax ?0.8 ?m/sec ? MV deceleration upcj221 ?msec ? MV A-wave Vmax ?0.8 ?m/sec [...] [facility] Procedure Note Blade Preston MD - 07/06/2017Formatt ing of this note might be different from the original. Procedure: Transthoracic Echocardiogram Patient: NATALYA MCBRIDE(Age): [birth year]72y) Med Rec#: [id number] Sex: M Site Loc: [facility] Ht / Wt: 173(cm)/86(kg) Pt. Loc: U BSA: 2 Study Date: 07/05/2017 Pt. Type: Inpatie nt Tape: Referring: Daphne Shahid ([id number]) Referring: MANDA ALCANTAR Reading: Blade Preston ([id number]) Fleet Maintenance Foreman: Dayami Paula BA, [facility] Diagnosis: *ICD-10-PCS Non-ST elevation (NSTEMI) m [...] MV E-wave Vmax 0.8 m/sec MV deceleration fmxe328 msec MV A-wave Vmax 0.8 m/sec MV [...] [facility] Cardiac Ultrasound Laboratory Daphne Shahid MD ECHO ORDERABLES Differential, Automated (07/05/2017 4:55 PM EST) athologist Signature Neutrophils % 77.0 % [facility] LABORATORY Neutr Abs (ANC) 5.26 1.70 - [facility] 6.10 [facility] x10(3)[facility] LABORATORY Lymphocytes % 13.3 % [facility] Lymphocytes Abs 0.9 0.9 - 3.2 [facility] x10(3)/[facility] LABORATORY Monocytes % 8.2 % [facility] Monocyte Abs 0.6 0.3 - 0.9 [facility] x10(3)/[facility] LABORATORY Eosinophils % 0.7 % [facility] Eosinophils Abs 0.0 0.0 - 0.4 [facility] x10(3)/[facility] LABORATORY Basophils % 0.4 % [facility] Basophils Abs 0.0 0.0 - 0.1 [facility] x10(3)/[facility] LABORATORY Immature Gran % 0.40 % [...] 0.00 - 0.04 x10(3)/[facility] LABORATORY Specimen Anatomical Collection Method Collection Time Receive d Time (Source) Location / / Volume Laterality Blood specimen 07/05/2017 4:55 PM 017 5:24 (specimen) EST PM EST Resulting Agency Comment Spec In Lab Daphne Shahid MD HEMATOLOGY ORDERABLES Performing Organization Address City/State/[place] [address] (ABNORMAL) Hemogram (07/05/2017 4:55 PM EST) Analysis Performed At Patho logist Time Signature WBC 6.8 4.0 - 9.5 [facility] x10(3[facility] LABORATORY RBC 4.67 4.58 - [place] 5.54 [facility] x10(6)/[facility] LABORATORY Hemoglobin 14.0 13.7 - [facility] 16.5 gm/dL [facility] LABORATORY Hematocrit 41.0 40.5 - [facility] 48.5 % [facility] LABORATORY MCV 87.[address] 82.9 - [facility] 93.[address] [facility] LABORATORY MCH 30.0 27.5 - [place] [facility] 32.1 pg [facility] LABORATORY MCHC 34.1 32.0 - [facility] 35.7 gm/dL [facility] LABORATORY Platelets 197 145 - 357 [facility] x10(3)/[facility] LABORATORY RDWSD 46.4 (H) 36.0 - [facility] 45.[address] [facility] LABORATORY RDWCV 14.5 (H) 11.4 - [facility] 13.8 % [facility] LABORATORY MPV 9.7 7.6 - 12.9 [facility] nRBC % Auto 0.0 % [facility] LABORATORY nRBC Abs Auto 0.000 0.000 - [facility] 0.000 [facility] x10(3)/[facility] LABORATORY Specimen Anatomical Collection Method Collection Time Receive d Time (Source) Location / / Volume Laterality Blood specimen 07/05/2017 4:55 PM 017 5:24 (specimen) EST PM EST Resulting Agency Comment Spec In Lab Daphne Shahid MD HEMATOLOGY ORDERABLES Performing Organization Address City/State/ZIP Code Phon e Number [facility] [place] [address] (ABNORMAL) Cardiac Enzymes (LEB/CGP) (07/05/2017 4:55 PM EST) athologist Signature Troponin-T 1.69 (H) 0.00 - [facility] 0.00 ng/mL [facility] LABORATORY [...] additional sample may be indicated. Reference: Third Henderson Definition of Myocardial Infarction. Journal of the [place] College of Cardiology 2012;60:1581-98 CK, Total 191 0 - 200 unit/L [facility] LABORATORY Specimen Anatomical Collection Method Collection Time Receive d Time (Source) Location / / Volume Laterality Blood specimen 07/05/2017 4:55 PM 017 5:56 (specimen) EST PM EST Resulting Agency Comment Spec In Lab Daphne Shahid MD CHEMISTRY ORDERABLES Performing Organization Address City/State/[place] [address] (ABNORMAL) pro-Brain Natriuretic Peptide (07/05/2017 4:55 PM EST) athologist Signature ProBNP 1,598 (H) <=125 [facility] pg/mL [facility] LABORATORY Specimen Anatomical Collection Method Collection Time Receive d Time (Source) Location / / Volume Laterality Blood specimen 07/05/2017 4:55 PM 017 5:24 (specimen) EST PM EST Resulting Agency Comment Spec In Lab Daphne Shahid MD CHEMISTRY ORDERABLES Performing Organization Address City/State/ZIP Code Phon e Number [address] Magnesium (07/05/2017 4:55 PM EST) P athologist Signature Magnesium 0.78 0.69 - 1.07 [facility] mmol/L [facility] LABORATORY Specimen Anatomical Collection Method Collection Time Receive d Time (Source) Location / / Volume Laterality Blood specimen 07/05/2017 4:55 PM 017 5:24 (specimen) EST PM EST Resulting Agency Comment Spec In Lab Daphne Shahid MD CHEMISTRY ORDERABLES Performing Organization Address City/[facility]/ZIP Code Phon e Number [address] (ABNORMAL) Basic Metabolic Panel (non-fasting) (07/05/2017 4:55 PM EST) P athologist Signature Glucose Lvl 230 (H) 65 - 199 [facility] mg/dL [facility] LABORATORY Comment: [...] Anion Gap 14 5 - 15 mmol/L [facility] LABORATORY Calcium 8.5 8.5 - 10.5 mg/dL [facility] Linnea [facility] LABORATORY Estimated GFR >60 >=60 [place] LABORATORY Comment: The reported eGFR should be multiplied b y 1.2 for patients. The MDRD is not an appropriate measure o f renal function for patients with body mass extremes or in patients with acute kidney failure. http://[employer]/nkdep http://[employer]/[facility] Specimen Anatomical Collection Method Collection Time Receive d Time (Source) Location / / Volume Laterality Blood specimen 07/05/2017 4:55 PM 017 5:24 (specimen) EST PM EST Resulting Agency Comment Spec In Lab Daphne Shahid MD CHEMISTRY ORDERABLES Performing Organization Address City/[facility] [place] [address] (ABNORMAL) APTT (07/05/2017 4:55 [...] Shahid MD HEMATOLOGY ORDERABLES Performing Organization Address City/[facility]/ZIP [facility] [place] [address] (ABNORMAL) POCT Glucose (07/05/2017 4:53 PM EST) P athologist Signature POC Glucose 208 (H) 65 - 199 [facility] mg/dL [facility] LABORATORY Comment: [...] Organization Address City/State/[place] [address] EKG 12 Lead (07/05/2017 4:32 PM EST) Component Value Ref Range Test Analysis Performed Pathologis t Method Time At Signature Ventricular rate 97 BPM MUSE SYSTEM Atrial Rate 97 BPM MUSE SYSTEM P-R Interval 148 ms MUSE SYSTEM QRS Duration 96 ms MUSE SYSTEM Q-T Interval 364 ms MUSE SYSTEM QTC Calculated 462 ms MUSE SYSTEM (Bezet) Calculated P [place] 48 degrees MUSE SYSTEM Calculated R [place] -33 degrees MUSE SYSTEM Calculated T [place] 98 degrees MUSE SYSTEM INTERPRETATION Normal [...] in dextrose 5% 250 mL EST infusion ([employer]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
Routine documented in this encounter Care Teams Horses Or Mules Teamster Relationship Specialty Start Date End Date Lovely Vicente MD PCP - General 04/16/[address] [place] [address] documented as of this encounter
--- OUTSIDE RECORDS SUMMARY | 2022-04-06 10:46 | XMS_ITS | Encounter Summary ---
:1945 Author Organization [facility] [place] [address] Care Team Providers Name Role Phone Lovely Vicente MD Primary Care Provider Encounter Details Date Type Department Care Team Description 11/28/2016 Telephone Dermatology at [facility] Rigoberto Garcia III, [address] [place] [address] [facility] [phone] [facility] SIMÓN-DERMAT [place], [place] [address] (Wo rk) Social History [...] Zulma Dolan MD [facility] [address] [place], [place] [address] (Wo rk) 05/28/2022 Laboratory Appointment Lab 05/28/2022 Office Visit Cardiology Zulma Dolan MD [facility] [place] [address] Liz Poole PA [facility] [place] [address] 06/10/2022 Office Visit Dermatology Laura Scherer MD [facility] DR TE[address] [place], [place] [address] (Wo rk) documented as of this encounter Visit Diagnoses Not on filedocumented in this encounter Care Teams Mine Geologist Relationship Specialty Start Date End Date Lovely Vicente MD PCP - General 04/16/[address] [place] [address] documented as of this encounter
--- OUTSIDE RECORDS SUMMARY | 2022-04-06 10:46 | XMS_ITS | Encounter Summary ---
:1945 Author Organization [facility] [place] [address] Care Team Providers Name Role Phone Lovely Vicente MD Primary Care Provider Encounter Details Date Type Department Care Team Description 07/10/2016 Telephone Dermatology at [facility] Rigoberto White III, [address] [place] [address] [facility] [phone] [facility] [place], [place] [address] (Wo rk) Social History [...] Dolan MD [facility] [place], [place] [address] (Wo rk) 05/28/2022 Laboratory Appointment Lab 05/28/2022 Office Visit Cardiology Zulma Dolan MD [facility] [place] [address] Liz Poole PA [facility] [place] [address] 06/10/2022 Office Visit Dermatology Laura Scherer MD [facility] DR TEJA MARIE[place], [place] [address] (Wo rk) documented as of this encounter Visit Diagnoses Not on filedocumented in this encounter Care Teams Turpentine Distiller Relationship Specialty Start Date End Date Lovely Vicente MD PCP - General 04/16/[address] [facility] [address] [place] [address] documented as of this encounter
--- OUTSIDE RECORDS SUMMARY | 2022-04-06 10:46 | XMS_ITS | Encounter Summary ---
:1945 Author Organization [place] [address] Care Team Providers Name Role Phone Angela Holliday STACIE Primary Care Provider Encounter Details Date Type Department Care Team Description 04/04/2013 Telephone [place]rology at [facility] Parker Sanchez [place] [facility] [place] [address] UROLOGY DEPT [phone] [place], [place] [address] (Wo rk) Social History [...] Dolan MD [facility] [address] [place], [place] [address] (Wo rk) 05/28/2022 Laboratory Appointment Lab 05/28/2022 Office Visit Cardiology Zulma Dolan MD [facility] [place] [address] Liz Poole PA [facility] [place] [address] 06/10/2022 Office Visit Dermatology Laura Scherer MD [facility] DR TEJA GR-[place], [place] [address] (Wo rk) documented as of this encounter Visit Diagnoses Not on filedocumented in this encounter Care Teams Mapping Analyst Relationship Specialty Start Date End Date Angela Holliday APRN PCP - General 01/25/13 04/15/[address] [place] [address] documented as of this encounter
--- OUTSIDE RECORDS SUMMARY | 2022-04-06 10:47 | XMS_ITS | Encounter Summary ---
:1945 [place] [address] Care Team Providers Name Role Phone MiyaLokeshAngela STACEI Primary Care Provider Encounter Details Date Type Department Care Team Description 03/28/2013 Anesthesia Event Main Operating Room Meredith Calvert MD [facility] [place] [address] [facility] Nolvia Riojas PA [facility] [place] [address] [place] [address] Anesthesia Record Procedure Summary Procedure Name [...] Zulma Dolan MD [facility] [place], [place] [address] (Wo rk) 05/28/2022 Laboratory Appointment Lab 05/28/2022 Office Visit Cardiology Zulma Dolan MD [facility] [address] Liz Poole PA [facility] [place] [address] 06/10/2022 Office Visit Dermatology Laura Scherer MD [facility] [address] GR[place], [place] [address] (Wo rk) documented as [...] Routine documented in this encounter Care Teams Diagnostic Tech Relationship Specialty Start Date End Date Angela Holliday APRN PCP - General 01/25/13 04/15/[address] [place] [address] documented as of this encounter
--- OUTSIDE RECORDS SUMMARY | 2022-04-06 10:47 | XMS_ITS | Encounter Summary ---
:1945 Author Organization [facility] [place] [address] Care Team Providers Name Role Phone Angela Holliday APRN Primary Care Provider Encounter Details Date Type Department Care Team Description 03/28/2013 Surgery Main Operating Room Mesha Mcknight, THYROIDECTOMY, TOTAL [facility] (WRVU 15.04) [facility] [address] [place]idd[place] [address] [place] [address] [phone] (Wo rk) Social History Tobacco Use Types [...] please call the General Surgery nurse at [phone], since this may mean that you need morecalcium. Follow-up Appointment: Will be scheduled with Dr. Mcknight in 6 weeks Date and time as well as any required labs will be mailed to you Please call [phone] to confirm date and time of your [...] by calcium supplementation. Phone number for questions: [phone] before 5 PM weekdays [phone] after 5 PM and on weekends/holidays Please [...] is a 68 y.o. male presents to [facility] today for total thyroidectomy. See [...] Willams MD - 03/28/2013 3:43 PM EDT [facility] Operative Note Patient Name: Gregory Fatima : [id number] MR#: [id number] Case Date: 03/28/2013 Surgeon: Surgeon(s) and Role: [...] patient was extubated and taken to the [facility] in stable condition. At the [...] Operative Note Patient Name: Gregory Fatima : [id number] MR#: [id number] Case Date: 03/28/2013 Surgeon: Surgeon(s) and Role: [...] [facility] er Dr Reeder [place] [address] (Wo rk) 05/28/2022 Laboratory Appointment Lab 05/28/2022 Office Visit Cardiology Zulma Dolan MD [facility] INA Joaquin [address] Liz Poole PA [facility] [place] [address] 06/10/2022 Office Visit Dermatology Laura Scherer MD [facility] ER DR TEJA GR-DERMAT [place] [address] (Wo rk) documented as of this encounter [...] Organization Address City/State/[place] [address] CERNER MILLENNIUM (ABNORMAL) POCT [...] [facility] [address] CERNER MILLENNIUM (ABNORMAL) POCT [...] [facility]/ZIP Code Phon e Number [address] CERNER MILLENNIUM (ABNORMAL) POCT [...] [facility]/ZIP Code Phon e Number [address] CERNER MILLENNIUM (ABNORMAL) POCT [...] [facility]/ZIP Code Phon e Number [address] CERNER MILLENNIUM (ABNORMAL) POCT [...] [facility]/ZIP Code Phon e Number [address] CERNER MILLENNIUM (ABNORMAL) POCT [...] [facility]/ZIP Code Phon e Number [address] CERNER MILLENNIUM (ABNORMAL) POCT [...] [facility]ZIP Code Phon e Number [address] [facility] Specimen to Pathology (surgical or derm) (03/28/2013 [...] [facility]ZIP Code Phon e Number [address] [facility] Pathology Addendum Report (03/28/2013 12:03 PM EDT) Component Value Ref Test Analysis Performed At [facility] gist Range Method Time Signature Addendum CERNER Report ? [facility] ? Provider: ?? MESHA MCKNIGHT Pt. Name: ?? GREGORY FATIMA ? Acc #: ?[id number] ?Pt. MRN: ?[id number] ? Col Date: ?? 03/28/2013 ?/Sex: ?1945,(68 [...] Address City/State/[place] [address] [facility] Surgical Pathology Report (03/28/2013 12:03 PM EDT) Component Value Ref Test Analysis Performed At [facility] gist Range Method Time Signature Surgical [facility] Pathology ? [facility] Report ? Provider: ?? MESHA MCKNIGHT Pt. Name: ?? GREGORY FATIMA ? Acc #: ?[id number] ?Pt. MRN: ?[id number] ? Col Date: ?? 03/28/2013 ?/Sex: ?1945,(68 [...] hemorrhage and ? calcifications. ? [facility] ? Provider: ?? MESHA MCKNIGHT Pt. Name: ?? GREGORY FATIMA ? Acc #: ?[id number] ?Pt. MRN: ?[id number] ? Col Date: ?? 03/28/2013 ?/Sex: ?1945,(68 years),Male ? Rec Date: ?? 03/28/2013 ?LOC: ?[facility] ? SURGICAL PATHOLOGY ? SECTIONS/PROCESSING: Geodesist sections are subm itted. (R6) ? B [...] Address City/State/[place] [address] CERNER MILLENNIUM Frozen Section Report (03/28/2013 12:03 PM EDT) Component Value Ref Test Analysis Performed At [facility] gist Range Method Time Signature Frozen CERNER Section ? [facility] Report ? Provider: ?? MESHA MCKNIGHT Pt. Name: ?? GREGORY FATIMA ? Acc #: ?[id number] ?Pt. MRN: ?[id number] ? Col Date: ?? 03/28/2013 ?/Sex: ?1945,(68 [...] [facility] [address] CERNER MILLENNIUM POCT Glucose [...] [facility]/ZIP Code Phon e Number [address] CERNER MILLENNIUM Specimen to [...] [facility] [address] CERNER MILLENNIUM Antibody screen (03/28/2013 9:37 AM EDT) Analysis Performed At Patho logist Time Signature Ab Screen Negative CERNER Interp MILLENNIUM Expires at [id number] CERNER 443 on: MILLENNIUM Specimen Anatomical Collection Method Collection Time Receive d Time (Source) Location / / Volume Laterality Blood specimen 03/28/2013 9:37 AM 013 9:37 (specimen) EDT AM EDT Resulting Agency Comment Spec In Lab Mesha Mcknight MD BLOOD BANK ORDERABLES Performing Organization Address City/[facility]/[place] [address] [facility] GRISEL[facility] ABO/Rh Typing (03/28/2013 9:37 AM EDT) athologist Signature ABORh Type O Pos [facility] Specimen Anatomical Collection Method Collection Time Receive d Time (Source) Location / / Volume Laterality Blood specimen 03/28/2013 9:37 AM 013 9:37 (specimen) EDT AM EDT Resulting Agency Comment Spec In Lab Mesha Mcknight MD BLOOD BANK ORDERABLES Performing Organization Address City/[facility]/ZIP Code Phon e Number [address] [facility] Differential, Automated (03/28/2013 9:34 AM EDT) athologist [...] City/State/ZIP Code Phon e Number [place] [phone]OS[address] CERNER MILLENNIUM (ABNORMAL) Basic [...] intervals supplied above were not validated at [facility]. Results from pediatri c patients should be [...] Address City/State/[place] [address] CERNER MILLENNIUM (ABNORMAL) CBC [...] 9.0 - 12.0 CERNER fL [facility] Specimen Anatomical Collection Method Collection Time Receive d Time (Source) Location / / Volume Laterality Blood specimen 03/28/2013 9:34 AM 013 9:38 (specimen) EDT AM EDT Resulting Agency Comment Spec In Lab Mesha Mcknight MD HEMATOLOGY ORDERABLES Performing Organization Address City/[facility]/ZIP Code Phon e Number [address] [facility] POCT Glucose (03/28/2013 9:17 AM EDT) athologist Signature POC Glucose 108 60 - 199 CERNER mg/dL [facility] Comment: Supplemental ranges: <110 mg/dL before [...] [facility]/ZIP Code Phon e Number [address] [facility] Specimen to Pathology (surgical or derm) (03/28/2013 8:55 AM EDT) Specimen Anatomical Collection Method Collection Time Receive d Time (Source) Location / / Volume Laterality AP Specimen 03/28/2013 8:55 AM 3 8:54 EDT AM EDT Narrative [facility] - 03/28/2013 8:55 AM E DT Specimen requisition ordered. ??Separate Pathology report to follow Mesha Mcknight MD PATHOLOGY/CYTOLOGY ORDERABLE S Performing Organization Address City/[facility]/ZIP Code Phon e Number [address] RAKESH WALKER documented in [...] RN) 0900 (Given - Provider: Radha Yao [facility], [facility]) 2.5 mg, Oral, DAILY, [...] override documented in this encounter Care Teams Advertising Consultant Relationship Specialty Start Date End Date Angela Holliday APRN PCP - General 01/25/13 04/15/15 [address] [place] [address] documented as of this encounter
--- OUTSIDE RECORDS SUMMARY | 2022-04-06 10:47 | XMS_ITS | Encounter Summary ---
:1945 Author Organization [facility] [place] [address] Care Team Providers Name Role Phone Adi Costello MD Primary Care Provider Reason for Visit Reason Comments Annual Exam ckeck his groin and melanoma follow-up Encounter Details Date Type Department Care Team Description 11/21/2010 Follow-Up Dermatology Arik Tipton Melanoma (Primary Dx) [facility] MD Jorge [place] [id number] DERMATOLOGY DEPT . 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 His only complaints are leg cramps, [...] changes: Arik Tipton MD Section of Dermatology [facility] documented in this encounter Plan of Treatment Upcoming Encounters Date Type Specialty Care Team Description 05/28/2022 Appointment Cardiology Zulma Dolan MD [facility] [place], [place] [address] (Wo rk) 05/28/2022 Laboratory Appointment Lab 05/28/2022 Office Visit Cardiology Zulma Dolan [place] [facility] [place] [address] Liz Poole PA [facility] [place] [address] 06/10/2022 Office Visit Dermatology Laura Scherer MD [facility] DR TEJA GR-DERMAT [place], [place] [address] (Wo rk) documented as of this encounter Visit Diagnoses Diagnosis Melanoma - Primary Melanoma of skin, site unspecified documented in this encounter Care Teams Oilseed Meat Presser Relationship Specialty Start Date End Date Adi Costello MD PCP - General 06/17/10 09/21/11 [address] [place] [address] documented as of this encounter
--- OUTSIDE RECORDS SUMMARY | 2022-04-06 10:47 | XMS_ITS | Encounter Summary ---
:1945 [place] [address] Care Team Providers Name Role Phone Holley Hollidayica STACIE Primary Care Provider Encounter Details Date Type Department Care Team Description 03/28/2013 - [facility]/29/2013 Barbara Gomes MD Dx) [facility] DR Siddiqui [place] [address] [phone] Social History Tobacco Use Types Packs/Day Years [...] please call the General Surgery nurse at [phone], since this may mean that you need morecalcium. Follow-up Appointment: Will be scheduled with Dr. Mcknight in 6 weeks Date and time as well as any required labs will be mailed to you Please call [phone] to confirm date and time of your [...] by calcium supplementation. Phone number for questions: [phone] before 5 PM weekdays [phone] after 5 PM and on weekends/holidays Please follow up with Urology as per their recommendations for Bob removal AttachmentsThe following attachments cannot be sent through Care Everywhere. THYROIDECTOMY: WHAT TO EXPECT AT HOME (SPANISH)URINARY CATHETER CARE: AFTER YOUR VISIT (SPANISH)documented in this encounter Medications at Time of [...] Operative Note Patient Name: Gregory Fatima : [id number] MR#: [id number] Case Date: 03/28/2013 Surgeon: Surgeon(s) and Role: [...] Operative Note Patient Name: Gregory Fatima : [id number] MR#: [id number] Case Date: 03/28/2013 Surgeon: Surgeon(s) and Role: [...] [facility] er Dr [address] [address] (Wo rk) 05/28/2022 Laboratory Appointment Lab 05/28/2022 Office Visit Cardiology Zulma Dolan MD [facility] INA Joaquin [address] Liz Poole PA [facility] [place] [address] 06/10/2022 Office Visit Dermatology Laura Scherer MD [facility] ER DR TEJA GR-DERMAT [place] [address] (Wo rk) documented as of this encounter [...] Organization Address City/State/[place] [address] CERNER MILLENNIUM (ABNORMAL) POCT [...] [facility]/[place] [address] CERNER MILLENNIUM (ABNORMAL) POCT [...] [facility]/ZIP Code Phon e Number [address] CERNER MILLENNIUM (ABNORMAL) POCT [...] [facility]/ZIP Code Phon e Number [address] CERNER MILLENNIUM (ABNORMAL) POCT [...] [facility]/ZIP Code Phon e Number [address] CERNER MILLENNIUM (ABNORMAL) POCT [...] [facility]/ZIP Code Phon e Number [address] CERNER MILLENNIUM (ABNORMAL) POCT [...] [facility]/ZIP Code Phon e Number [address] CERNER MILLENNIUM (ABNORMAL) POCT [...] [facility]/ZIP Code Phon e Number [address] [facility] Specimen to Pathology (surgical or derm) (03/28/2013 12:14 PM EDT) Specimen Anatomical Collection Method Collection Time Receive d Time (Source) Location / / Volume Laterality AP Specimen 03/28/2013 12:14 03/28/2013 PM EDT 12:14 PM EDT Narrative CERNER MILLENNIUM - 03/28/2013 12:14 PM EDT Specimen requisition ordered. ??Separate Pathology report to follow Mesha Mcknight MD PATHOLOGY/CYTOLOGY ORDERABLE S Performing Organization Address City/[facility]/ZIP Code Phon e Number [address] [facility] Pathology Addendum Report (03/28/2013 12:03 PM EDT) Component Value Ref Test Analysis Performed At [facility] gist Range Method Time Signature Addendum CERNER Report ? [facility] ? Provider: ?? MESHA MCKNIGHT Pt. Name: ?? GREGORY FATIMA ? Acc #: ?[id number] ?Pt. MRN: ?[id number] ? Col Date: ?? 03/28/2013 ?/Sex: ?1945,(68 [...] Organization Address City/State/[place] [address] [facility] Surgical Pathology Report (03/28/2013 12:03 PM EDT) Component Value Ref Test Analysis Performed At [facility] gist Range Method Time Signature Surgical [facility] Pathology ? [facility] Report ? Provider: ?? MESHA MCKNIGHT Pt. Name: ?? GREGORY FATIMA ? Acc #: ?[id number] ?Pt. MRN: ?[id number] ? Col Date: ?? 03/28/2013 ?/Sex: ?1945,(68 [...] of hemorrhage and ? calcifications. ? [facility] ? Provider: ?? MESHA MCKNIGHT Pt. Name: ?? GREGORY FATIMA ? Acc #: ?[id number] ?Pt. MRN: ?[id number] ? Col Date: ?? 03/28/2013 ?/Sex: ?1945,(68 years),Male ? Rec Date: ?? 03/28/2013 ?LOC: ?[facility] ? SURGICAL PATHOLOGY ? SECTIONS/PROCESSING: Head Of Digital Advertising & Integration sections are subm itted. (R6) ? B [...] Organization Address City/State/[place] [address] CERNER MILLENNIUM Frozen Section Report (03/28/2013 12:03 PM EDT) Component Value Ref Test Analysis Performed At [facility] gist Range Method Time Signature Frozen CERNER Section ? [facility] Report ? Provider: ?? MESHA MCKNIGHT Pt. Name: ?? GREGORY FATIMA ? Acc #: ?[id number] ?Pt. MRN: ?[id number] ? Col Date: ?? 03/28/2013 ?/Sex: ?1945,(68 [...] MD PATHOLOGY/CYTOLOGY ORDERABLE S Performing Organization Address City/[facility]/[place] [address] CERNER MILLENNIUM POCT Glucose [...] [facility]/ZIP Code Phon e Number [address] CERNER MILLENNIUM Specimen to [...] MD PATHOLOGY/CYTOLOGY ORDERABLE S Performing Organization Address City/[facility]/[place] [address] CERNER MILLENNIUM Antibody screen (03/28/2013 9:37 AM EDT) Analysis Performed At Patho logist Time Signature Ab Screen Negative CERNER Interp MILLENNIUM Expires at [id number] CERNER 809 on: MILLENNIUM Specimen Anatomical Collection Method Collection Time Receive d Time (Source) Location / / Volume Laterality Blood specimen 03/28/2013 9:37 AM 013 9:37 (specimen) EDT AM EDT Resulting Agency Comment Spec In Lab Mesha Mcknight MD BLOOD BANK ORDERABLES Performing Organization Address City/[facility]/[place] [address] [facility] GRISELDAENNIUM ABO/Rh Typing (03/28/2013 9:37 AM EDT) athologist Signature ABORh Type O Pos [facility] Specimen Anatomical Collection Method Collection Time Receive d Time (Source) Location / / Volume Laterality Blood specimen 03/28/2013 9:37 AM 013 9:37 (specimen) EDT AM EDT Resulting Agency Comment Spec In Lab Mesha Mcknight MD BLOOD BANK ORDERABLES Performing Organization Address City/[facility]/ZIP Code Phon e Number [address] [facility]ELD[facility] Differential, Automated (03/28/2013 9:34 AM EDT) athologist [...] Organization Address City/State/ZIP Code Phon e Number [place] [phone] CERNER MILLENNIUM (ABNORMAL) Basic [...] Organization Address City/State/[place] [address] CERNER MILLENNIUM (ABNORMAL) CBC [...] MPV 9.3 9.0 - 12.0 CERNER fL [facility] Specimen Anatomical Collection Method Collection Time Receive d Time (Source) Location / / Volume Laterality Blood specimen 03/28/2013 9:34 AM 013 9:38 (specimen) EDT AM EDT Resulting Agency Comment Spec In Lab Mesha Mcknight MD HEMATOLOGY ORDERABLES Performing Organization Address City/[facility]/ZIP Code Phon e Number [address] [facility] GR[facility]ELD[facility] POCT Glucose (03/28/2013 9:17 AM EDT) athologist Signature POC Glucose 108 60 - 199 CERNER mg/dL [facility] Comment: Supplemental ranges: <110 mg/dL before meals <200 mg/dL all other times of the day Specimen Anatomical Collection Method Collection Time Receive d Time (Source) Location / / Volume Laterality Blood specimen 03/28/2013 9:17 AM 013 9:17 (specimen) EDT AM EDT Mesha Mcknight MD POINT OF CARE TEST ORDERABLE S Performing Organization Address City/[facility]/ZIP Code Phon e Number [address] [facility] Specimen to Pathology (surgical or derm) (03/28/2013 8:55 AM EDT) Specimen Anatomical Collection Method Collection Time Receive d Time (Source) Location / / Volume Laterality AP Specimen 03/28/2013 8:55 AM 3 8:54 EDT AM EDT Narrative [facility] GRISELDAENNIUM - 03/28/2013 8:55 AM E DT Specimen requisition ordered. ??Separate Pathology report to follow Mesha Mcknight MD PATHOLOGY/CYTOLOGY ORDERABLE S Performing Organization Address City/[facility]/ZIP Code Phon e Number [address] [facility] documented in this encounter Visit [...] Radha Yao [facility], RN) 2.5 mg, Oral, [...] override documented in this encounter Care Teams Psychometrician Relationship Specialty Start Date End Date Angela Holliday APRN PCP - General 01/25/13 04/15/15 [address] [place] [address] documented as of this encounter
--- OUTSIDE RECORDS SUMMARY | 2022-04-06 10:47 | XMS_ITS | Encounter Summary ---
:1945 Author Organization [facility] [place] [address] Care Team Providers Name Role Phone Angela Holliday APRN Primary Care Provider Encounter Details Date Type Department Care Team Description 03/15/2013 Telephone General Surgery at [facility] [place], [place] [address] Social History Tobacco Use Types Packs/Day [...] Zulma Dolan MD [facility] [place], [place] [address] (Wo rk) 05/28/2022 Laboratory Appointment Lab 05/28/2022 Office Visit Cardiology Zulma Dolan MD [facility] [place] [address] Liz Poole PA [facility] [place] [address] 06/10/2022 Office Visit Dermatology Laura Scherer MD [facility] DR TEJA GR-DERMAT [place], [place] [address] (Wo rk) documented as of this encounter Visit Diagnoses Not on filedocumented in this encounter Care Teams Air Sealing Technician Relationship Specialty Start Date End Date Angela Holliday APRN PCP - General 01/25/13 04/15/[address] [place] [address] documented as of this encounter
--- OUTSIDE RECORDS SUMMARY | 2022-04-06 10:47 | XMS_ITS | Encounter Summary ---
:1945 Author Organization [facility] [place] [address] Care Team Providers Name Role Phone Angela Holliday APRN Primary Care Provider Reason for Referral Surgical (Routine) - Closed Specialty Diagnoses / Procedures Referred By Contact Refer red To Contact General Surgery Diagnoses Elijah Villagomez MD Colacchio, Thomas A, MD [address] [place] [address] [place] [address] [place] [address] Phone: Fax: Referral ID Status Reason Start Date Expiration Date Visits V isits Requested Authorized [id number] Closed Specialty 01/25/2013 07/24/2013 1 1 Service Requested Reason for Visit Reason Comments Thyroid Problem Encounter Details Date Type Department Care Team Description 01/25/2013 Office Visit Endocrinology at [facility] Elijah Fuentes Goiter (Primary Dx) [facility] [address] [place] [phone] [place] [address] [phone] Social History Tobacco Use Types Packs/Day Years [...] 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 All other [...] the thyroid gland were obtained using a SonEarn and Playaxx and an HFL38/13-6 broadband linear array transducer. [...] Zulma Dolan MD [facility] [place], [place] [address] (Wo rk) 05/28/2022 Laboratory Appointment Lab 05/28/2022 Office Visit Cardiology Zulma Dolan MD [facility] [place] [address] Liz Poole PA [facility] [place] [address] 06/10/2022 Office Visit Dermatology Laura Scherer MD [facility] DR TEJA GR-DERMAT [place], [place] [address] (Wo rk) Scheduled Referrals Name [...] Address City/State/[place] [address] CERNER MILLENNIUM documented in this encounter Visit Diagnoses Diagnosis Goiter - Primary Goiter, unspecified documented in this encounter Care Teams Gas Pump Attendant Relationship Specialty Start Date End Date Angela Holliday APRN PCP - General 01/25/13 04/15/[address] [place] [address] documented as of this encounter
--- OUTSIDE RECORDS SUMMARY | 2022-04-06 10:47 | XMS_ITS | Encounter Summary ---
:1945 Author Organization [facility] [place] [address] Care Team Providers Name Role Phone NeilSom conner STACIE Primary Care Provider Reason for Visit Reason Comments Establish Care OBST GOITER Encounter Details Date Type Department Care Team Description 01/25/2013 Office Visit General Surgery at Manny Mcknight er colloid, toxic, [facility] MD Eliseo nodular (Primary Dx) [facility] [place] GENERAL SURGERY [id number] [place], [place] [id number] [phone] Social History Tobacco Use Types Packs/Day Years [...] the thyroid gland were obtained using a [employer] MicroMaxx and an HFL38/13-6 broadband linear array [...] agrees to proceed. Will sign in through [facility]. Consent is signed. Send copy to Dr. SOM HOLLIDAY APRN and Elijah Elias MD. documented in this encounter Plan of Treatment Upcoming Encounters Date Type Specialty Care Team Description 05/28/2022 Appointment Cardiology Zulma Dolan MD [facility] [address] [place] [address]375 (Wo rk) 05/28/2022 Laboratory Appointment Lab 05/28/2022 Office Visit Cardiology Zulma Dolan MD [facility] [place] [address] Liz Poole PA [facility] [place] [address] 06/10/2022 Office Visit Dermatology Laura Scherer MD [facility] DR TEJA GR-DERMAT [place], [place] 0375 (Wo rk) documented as of [...] 406 ms MUSE SYSTEM (Bezet) Calculated P [place] 52 degrees MUSE SYSTEM Calculated R [place] 0 degrees MUSE SYSTEM Calculated T [place] 40 degrees MUSE SYSTEM INTERPRETATION Normal sinus [...] storm documented in this encounter Care Teams Insert Cutter Relationship Specialty Start Date End Date Som Holliday APRN PCP - General 01/25/13 04/15/[address] [place] [address] documented as of this encounter
--- OUTSIDE RECORDS SUMMARY | 2022-04-06 10:47 | XMS_ITS | Encounter Summary ---
:1945 Author Organization [facility] [place] [address] Care Team Providers Name Role Phone Unknown Primary Care Provider Unavailable Reason for Visit Reason Comments Other Encounter Details Date Type Department Care Team Description 10/05/2012 Telephone Dermatology at [facility] Rigoberto Garcia III, [address] [place] [address] [facility] [phone] TEJA MARIE-DERMAT [place] [id number] (Wo rk) Social History Tobacco Use Types [...] Dolan MD [facility] [place], [place] 0375 (Wo rk) 05/28/2022 Laboratory Appointment Lab 05/28/2022 Office Visit Cardiology Zulma Dolan MD [facility] [place] [address] Liz Poole PA [facility] [place] [address] 06/10/2022 Office Visit Dermatology Laura Scherer MD [facility] DR TEJA MARIE-DERMAT [place], [place] 0[address] (Wo rk) documented as of this encounter Visit Diagnoses Not on filedocumented in this encounter Care Teams Keno Clerk Relationship Specialty Start Date End Date Unknown PCP - General 10/04/12 01/24/13 None documented as of this encounter
--- OUTSIDE RECORDS SUMMARY | 2022-04-06 10:47 | XMS_ITS | Encounter Summary ---
:1945 Author Organization [facility] Address [facility] [place] [address] Care Team Providers Name Role Phone Unknown Primary Care Provider Unavailable Reason for Visit Reason Comments Skin Check Encounter Details Date Type Department Care Team Description 10/04/2012 Follow-Up Dermatology at Rigoberto Forman soriasis (Primary Dx); Abdelrahman HOOPER MD Neoplasm of unspecified nature of bone, soft tissue, and skin; [address] [facility] Skin lesion of chest wall; [place] [address] Seborrheic psoriasis- scalp and ingtergl uteal area [phone] [facility] [place], [place] 0[address] (Wo rk) Social History Tobacco [...] changes: Rigoberto Albarran MD Section of Dermatology [facility] documented in this encounter Plan of Treatment Upcoming Encounters Date Type Specialty Care Team Description 05/28/2022 Appointment Cardiology Zulma Dolan MD [facility] [address] [place], [place] [address] (Wo rk) 05/28/2022 Laboratory Appointment Lab 05/28/2022 Office Visit Cardiology Zulma Dolan MD [facility] [place] [address] Liz Poole PA [facility] [place] [address] 06/10/2022 Office Visit Dermatology Laura Scherer MD [facility] DR TEJA GR-DERMAT [place], [place] 0[address] (Wo rk) documented as [...] [place] gist Range Method Time Signature Surgical CERNER Pathology ? [facility] Report ? Provider: ?? RIGOBERTO ALBARRAN III Pt. Name: ?? DON HOANG ?A ? Acc #: ?[id number] ? Pt. ? Col Date: ?? 3 [...] MD PATHOLOGY/CYTOLOGY ORDERABLE S Performing Organization Address City/[facility]/ZIP Code Phon e Number [address] [facility] Specimen to Pathology (NON-OR) (10/04/2012 9:55 AM [...] MD PATHOLOGY/CYTOLOGY ORDERABLE S Performing Organization Address City/[facility]/ZIP Code Phon e Number [address] [facility] documented in this encounter Visit Diagnoses Diagnosis Psoriasis - Primary Other psoriasis Neoplasm of unspecified nature of bone, soft tissue, and skin Skin lesion of chest wall Unspecified disorder of skin and subcuta neous tissue Seborrheic psoriasis- scalp and ingtergl uteal area Other psoriasis documented in this encounter Care Teams Operations Vice President Relationship Specialty Start Date End Date Unknown PCP - General 10/04/12 01/24/13 None documented as of this encounter
--- OUTSIDE RECORDS SUMMARY | 2022-04-06 10:47 | XMS_ITS | Encounter Summary ---
:1945 Author Organization [facility] [place] [address] Care Team Providers Name Role Phone Angela Holliday APRN Primary Care Provider Encounter Details Date Type Department Care Team Description 01/25/2013 Clinical [place] [address] Social History Tobacco Use Types Packs/Day [...] MD [facility] Dr [place], [place] [address] (Wo rk) 05/28/2022 Laboratory Appointment Lab 05/28/2022 Office Visit Cardiology Zulma Dolan MD [facility] [place] [address] Liz Poole PA [facility] [place] [address] 06/10/2022 Office Visit Dermatology Laura Scherer MD [facility] [address] TEJA GR-DERMAT [place], [place] [address] (Wo rk) documented as of this encounter Visit Diagnoses Not on filedocumented in this encounter Care Teams Manager Agricultural Relationship Specialty Start Date End Date Angela Holliday APRN PCP - General 01/25/13 04/15/[address] [place] [address] documented as of this encounter
--- OUTSIDE RECORDS SUMMARY | 2022-04-06 10:49 | XMS_ITS | Encounter Summary ---
:1945 Author Organization [facility] Address [address] [place] [address] Care Team Providers Name Role Phone Unknown, Provider Primary Care Provider Encounter Details Date Type Department Care Team Description 03/05/2014 Results Only [facility] Eris Taylor MD Laboratory Services - [address] [place] [address] [place] [address] [phone] Social History Tobacco Use Types Packs/Day Years Used Date Never Assessed Sex Assigned at Date Recorded Not on file documented as of this encounter Plan of Treatment Not on filedocumented as of this encounter Procedures Procedure Name Priority Date/Time Associated Diagnosis Comme [facility] SURGICAL PATHOLOGY Routine 03/05/2014 10:34 Resul [...] ? DON HOANG ? Accession #: ? [id number] ? : ? 1945 (Age: 68) ??M [...] Address City/State/ZIP Code Phon e Number [facility] [address] [place] [address] SERVICES [facility] [address] [place] [address] documented in this encounter Visit Diagnoses Not on filedocumented in this encounter Care Teams Break And Load Operator Relationship Specialty Start Date End Date Unknown, Provider, PCP - General 03/07/14 07/12/14 documented as of this encounter
--- OUTSIDE RECORDS SUMMARY | 2022-04-06 10:49 | XMS_ITS | Encounter Summary ---
:1945 Author Organization [facility] Address [address] [place] [address] Care Team Providers Name Role Phone Unavailable Primary Care Provider Unavailable Encounter Details Date Type Department Care Team Description 03/05/2014 Hospital Encounter [facility]- [place] Unknown, Provider, [facility] [phone] [place] [address] (Work) [phone] Social History Tobacco Use Types Packs/Day Years Used Date Never Assessed Sex Assigned at Date Recorded Not on file documented as of this encounter Discharge Disposition Disposition Code Departure Means Destination Home or Self [facility] documented in this encounter Plan of Treatment Not on filedocumented as of this encounter Visit Diagnoses Not on filedocumented in this encounter
--- OUTSIDE RECORDS SUMMARY | 2022-04-06 10:49 | XMS_ITS | Encounter Summary ---
:1945 Author Organization [facility] Address [address] [place] [address] Care Team Providers Name Role Phone Lovely Vicente MD Primary Care Provider Encounter Details Date Type Department Care Team Description 02/20/2022 Lab Requisition [facility] Outr Resulting Lab, Pathology & Laboratory Provider [facility] [address] [place] [address] Social History Tobacco Use Types Packs/Day Years [...] <=6.5 ng/mL [facility] LAB[facility] Y SERVICES Specimen Blood - Venous blood (substance) Narrative [facility]ORY SERVICES - 02/20/2022 18:17 EDT NOTE: Serum PSA concentration should not be in terpreted as absolute evidence for the presence or absence of malignant disease. Assayed on Siemens ADVIA Centaur XPT usi ng chemiluminescent technology.??Values obtained by using different assay methods cannot be used interchangeably. Performing Organization Address City/State/ZIP Code Phon e Number [facility] [address] [place] [address] SERVICES documented in this encounter Visit Diagnoses Not on filedocumented in this encounter Care Teams Corporate Recycling Manager Relationship Specialty Start Date End Date Lovely Vicente MD PCP - General 07/13/14 documented as of this encounter
--- OUTSIDE RECORDS SUMMARY | 2022-04-06 10:49 | XMS_ITS | Encounter Summary ---
:1945 Author Organization [facility] Address [address] [place] [address] Care Team Providers Name Role Phone Lovely Vicente MD Primary Care Provider Encounter Details Date Type Department Care Team Description 04/04/2021 Lab Requisition [facility] Outr Resulting Lab, Pathology & Laboratory Provider [facility] [address] [place] [address] Social History Tobacco Use Types Packs/Day Years [...] Sig nature Salmonella PCR Negative Negative [facility] Shigella/Enteroinvasive Negative Negative [facility] HN LAB CAMPYLOBACTER PCR Negative Negative [facility] ER LABORATORY SERVICES Shiga Toxin PCR Negative Negative [facility] Specimen Feces - Specimen from rectum (specimen) Performing Organization Address City/State/ZIP Code Phon e Number [facility] [address] [place] [address] SERVICES documented in this encounter Visit Diagnoses Not on filedocumented in this encounter Care Teams Beater Worker Helper Relationship Specialty Start Date End Date Lovely Vicente MD PCP - General 07/13/14 documented as of this encounter
--- OUTSIDE RECORDS SUMMARY | 2022-04-06 10:49 | XMS_ITS | Encounter Summary ---
:1945 Author Organization [facility] Address [address] [place] [address] Care Team Providers Name Role Phone Lovely Vicente MD Primary Care Provider Encounter Details Date Type Department Care Team Description 04/04/2021 Lab Requisition [facility] Outr Resulting Lab, Pathology & Laboratory Provider [facility] [address] [place] [address] Social History Tobacco Use Types Packs/Day Years [...] (04/03/2021 12:15 EDT) Giardia and Cryptosporidium Cryptosporidium [facility] Cryptosporidium Antigen Neg and Antigen Neg and CENTER Giardia Antigen Neg Giardia Antigen Neg LABORATORY SERVICES Specimen Feces - Specimen from rectum (specimen) Performing Organization Address City/State/ZIP Code Phon e Number [facility] [address] [place] [address] SERVICES documented in this encounter Visit Diagnoses Not on filedocumented in this encounter Care Teams Pain Management Physician Relationship Specialty Start Date End Date Lovely Vicente MD PCP - General 07/13/14 documented as of this encounter
--- OUTSIDE RECORDS SUMMARY | 2022-04-06 10:49 | XMS_ITS | Encounter Summary ---
:1945 Author Organization [facility] Address [address] [place] [address] Care Team Providers Name Role Phone Lovely Vicente MD Primary Care Provider Encounter Details Date Type Department Care Team Description 08/11/2019 Lab Requisition [facility] Unknown, Provider, Pathology & Laboratory [facility] [address] [facility] [place] [address] Social History Tobacco Use Types Packs/Day Years [...] (08/11/2019 14:35 EST) Giardia and Cryptosporidium Cryptosporidium [facility] Cryptosporidium Antigen Neg and Antigen Neg and CENTER Giardia Antigen Neg Giardia Antigen Neg LABORATORY SERVICES Specimen Feces - Specimen from rectum (specimen) Performing Organization Address City/State/ZIP Code Phon e Number [facility] [address] [place] [address] SERVICES documented in this encounter Visit Diagnoses Not on filedocumented in this encounter Care Teams Tie Puller Relationship Specialty Start Date End Date Lovely Vicente MD PCP - General 07/13/14 documented as of this encounter
--- OUTSIDE RECORDS SUMMARY | 2022-04-06 10:49 | XMS_ITS ---
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 Problem Critical ischemia I99.8 Active of lower extremity Problem Atherosclerosis I70.90 Active 3871 6007 Problem Type 2 diabetes E11.628 Active mellitus with other skin complications Problem 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 40 ; Acquired deformi ty of right foot M21.961 ; L luis term current use of i nsulin Z79.4 ; History of art erial bypass of lower extremi ty Z95.828 ; Atherosclerosis I70.90 and History of Lisfr anc amputation of fo ot Z89.439 [address] Feb, Type 2 diabet es mellitus [address] [place], [place] with diabe tic neuropathy, [address] unspecified E11. 40 ; Acquired deformi ty of right foot M21.961 ; L luis term current use of i nsulin Z79.4 ; History of art erial bypass of lower extremi ty Z95.828 ; Atherosclerosis I70.90 and History of Lisfr anc amputation of fo ot Z89.439 [facility] November, [place] [address] [facility] [facility] November, Type 2 [place] [address] with diabeti c neuropathy, unspecified E11. 40 ; Acquired deformi ty of right foot M21.961 ; L luis term current use of i nsulin Z79.4 ; History of art erial bypass of lower extremi ty Z95.828 ; Atherosclerosis I70.90 and History of Lisfr anc amputation of fo ot Z89.439 [facility] 10 Aug, 2019 Type 2 [place] [address] with other skin complications E1 1.628 ; Tinea pedis of l eft foot B35.3 ; Type 2 d iabetes mellitus with di abetic neuropathy, unsp ecified E11.40 ; Acquire d deformity of right foot M2 1.961 ; alf current use of insulin Z79.4 ; History of arterial bypass of lower extremity Z95.828 and Athe rosclerosis I70.90 [facility] Jun, [place] [address] [address] Jun, [place] [address] [address] Jun, Type 2 diabet es mellitus [place], [place] with other skin [address] complications E1 1.628 ; Acquired deformi ty of right foot M21.961 ; T ype 2 diabetes mellitu s with diabetic neuropa thy, unspecified E11. 40 ; intermodal dispatcher current use of insulin Z79.4 and Histor y of arterial bypass of lower extremity Z95.82 8 [facility] Feb, Type 2 [place] [address] with other s kin complications E1 1.628 ; Acquired deformi ty of right foot M21.961 ; T ype 2 diabetes mellitu s with diabetic neuropa thy, unspecified E11. 40 ; alf current use of insulin Z79.4 and Histor y of arterial bypass of lower extremity Z95.82 8 [facility] November, Tinea pedis o f left foot [place], [place] B35.3 ; Ty pe 2 diabetes [address] mellitus with ot her skin complications E1 1.628 ; Acquired deformi ty of right foot M21.961 ; T ype 2 diabetes mellitu s with diabetic neuropa thy, unspecified E11. 40 ; intermodal dispatcher current use of insulin Z79.4 and Histor y of arterial bypass of lower extremity Z95.82 8 [facility] November, [place] [address] [address] Aug, Type 2 diabet es mellitus [place] with diabe tic neuropathy, [address] unspecified E11. 40 ; Acquired deformi ty of right foot M21.961 ; P eripheral arterial disease I73.9 ; History of arter ial bypass of lower extremi ty Z95.828 ; alf curren t use of insulin Z79.4 an d History of Lisfranc amputat ion of foot Z89.439 UNKNOWN Jul, [facility] 11 Jun, 2018 Type 2 [place] [address] with diabeti c neuropathy, unspecified E11. [address] Apr, Edema of both legs R60.0 ; [place], [place] Acquired d eformity of right [address] foot M21.961 ; P eripheral arterial disease I73.9 ; History of arter ial bypass of lower extremi ty Z95.828 ; intermodal dispatcher curren t use of insulin Z79.4 an d Type 2 diabetes mellitu s with diabetic neuropa thy, unspecified E11. [address] [facility] Mar, [place] [address] [address] Mar, Edema of both legs R60.0 ; [place] Acquired d eformity of right 04852 foot M21.961 ; P eripheral arterial disease I73.9 ; History of arter ial bypass of lower extremi ty Z95.828 ; intermodal dispatcher curren t use of insulin Z79.4 an d Type 2 diabetes mellitu s with diabetic neuropa thy, unspecified E11. 40 [facility] Feb, Edema of both legs R60.0 ; [place] [address] Ulcer of lef t calf, limited to breakdown of skin L97.221 ; Acquired defor mity of right foot M21.9 61 ; Peripheral arter ial disease I73.9 ; History of arterial bypass of lower extremity Z95.828 ; Long t erm current use of insulin Z 79.4 and Type 2 diabetes mellitus with diabetic ne uropathy, unspecified E11. 40 [facility] 1 Feb, [place] [address] [facility] Feb, Edema of both legs R60.0 ; [place] [address] Ulcer of rig ht calf, limited to [...] unspecified E11. 40 [facility] Feb, [place] [address] [facility] [address] [facility] [address] Feb, [place] [address] [facility] [address] Jan, [place] [address] [facility] [address] [facility] [address] Jan, [place] [address] [facility] [address] Jan, [place] [address] [facility] [address] [facility] Jan, [place] [address] [facility] [address] [facility] Jan, [place] [address] [facility] [address] Dec, [place] [address] [facility] [address] Dec, [place] [address] [facility] [address] [address] Dec, [place] [address] [facility] [address] Dec, [place] [address] [facility] Dec, [place] [address] [facility] [address] [address] Dec, [place] [address] [facility] November, [place] [address] [facility] November, [place] [address] [facility] November, [place] [address] [facility] November, [place] [address] [facility] November, [place] [address] [facility] November, [place] [address] UNKNOWN November, [facility] [address] November, OFFICE [place] [address] [facility] November, [place] [address] [facility] Oct, [place] [address] [facility] Oct, [place] [address] [facility] Oct, [place] [address] [facility] [address] 18 Oct, 2017 [place] [address] [facility] 16 Oct, 2017 [place] [address] [facility] [address] [place] 16 Oct, [facility] [address] [facility] Oct, [place] [address] [facility] Oct, [place] [address] [facility] Oct, [place] [address] [facility] [address] Sep, [facility] [address] [facility] Sep, [place] [address] [facility] [address] [place] Sep, [place] [address] [facility] [address] [place] Sep, [place] [address] [facility] [address] Sep, [place] [address] [facility] [address] Sep, Critical ischemi a of lower [place] [address] extremity I 99.8 ; Local infection of the skin and subcutaneous tis lindsey, unspecified L08. 9 and Type 2 diabetes mellitu s with other skin complicatio ns E11.628 [facility] Sep, [place] [address] [facility] [address] [facility] [address] Sep, [place] [address] [facility] [address] Sep, [place] [address] [facility] [address] [facility] 14 Sep, [address] [place] [address] [facility] Sep, [place] [address] [facility] Sep, [place] [address] [facility] Sep, [place] [address] [facility] Sep, [place] [address] [facility] [address] [facility] [address] Aug, [place] [address] [facility] [address] Aug, [facility] [address] [facility] [address] [place] Aug, [place] [address] [facility] Aug, [place] [address] [facility] Aug, [place] [address] [facility] Aug, [place] [address] [facility] Aug, Pre-op exam Z01.818 [place] [address] [facility] Aug, [place] [address] [facility] Aug, [place] [address] [facility] Aug, [place] [address] IMMUNIZATIONS No Known Immunizations SOCIAL HISTORY Qualifiers [...] subcutaneously 22 24h Active units/mL daily Pen [place] Active Ciclopirox Externally Twice 1 application 12h [...] For Report MR Lower Ext R w/o ([id number]) 2017-09-16 See Below For Report CR C-ARM [...] 6.7, [facility] annually, f/u - bilateral leg edema, Pt [...] wound center,lab work done 03/07/2018 @ [facility], Patient came in with tubigrip bilateral , wound clin est, wound clinest, Wound CTR-follow up, Wound CTR-follow up, Wound CTR-follow up, Peer to Peer w/ Dr. Espino, Wound CTR-follow up, Wound CTR-follow up, Investment Director Documentation, LAB, Wound CTR-follow up, Wound CTR-follow up, Wound CTR-follow up, Wound CTR-follow up, LAB, LAB, Wound CTR- follow up, Wound CTR-follow up, Wound CTR-follow up, Investment Director Documentation, [facility], Wound CTR-follow up, Wound CTR-follow up, Pull PICC Line, Wound CTR-follow up, Wound CTR-follow up, LAB, Still taking doxycycline 100mg? , Wound CTR-follow up, Wound CTR-follow up, Wound CTR-follow up, Investment Director Documentation, Wound CTR-follow up, Wound CTR-follow up, Call back, Investment Director Documentation, Investment Director Documentation, Investment Director Documentation, Wound CTR-follow up, WCC, Wound CTR-follow up, Wound CTR-follow up, labs, D/C planning, bailey smetatarsal amputation of right foot, LAB, LAB, Wound CTR-NEW Insurance Providers [facility] Health Member Patient Patient Patient Patient Patient Subscriber Subscriber Subscriber Group Insurance Plan Plan Plan Plan ID Relationship Address Phone Name Date of ID Name Date of No Type Insurance Insurance Insurance Coverage to Subscriber Address Phone Name Dates S-BLUE [phone] S-BLUE [place]REG[place] [id number] [place] [address] [place] 3000 GOFF[place] MEDICARE self GREGORY [id number] [facility] [id number] SELF PAY [address] STRE[address] SELF PAY self [place] [id number] AFTER BLUE [place] AFTER BLUE [facility] [address] [address] OTHER [address] [place] [phone] OTHER [place]REG[place] [id number] GRANT 1^MAIN [employer]Y [facility] PAYOR [id number]
--- OUTSIDE RECORDS SUMMARY | 2022-04-06 10:49 | XMS_ITS | Encounter Summary ---
:1945 Author Organization [facility] Address [address] [place] [address] Care Team Providers Name Role Phone Unknown, Provider Primary Care Provider Encounter Details Date Type Department Care Team Description 07/11/2014 Results Only [facility] Shruthi Horowitz MD Laboratory Services - [address] [place] [address] [place] [address] 0 [facility] [place] [address] [phone] Social History Tobacco Use Types Packs/Day Years [...] 8:55 EST) Pathology Report: SURGICAL PATHOLOGY REPORT [facility] Reports generated via electronic interface contain sorin ginal data; LABORATORY however they are lacking the format of the original re port. SERVICES Caution should be taken when reading/interpreting unfo rmatted reports. Name: ? DON HOANG ? Accession #: ? [id number] ? : ? 1945 (Age: 69) ??M [...] 6.5 x 3.0 cm in aggreg ate). Cobbler Upper sections are submitted in 1- 10 (approximately 40% of the specimen is submitted). Viry Nunez 07/12/2014 11:21 AM End of Report Specimen Performing Organization Address City/State/ZIP Code Phon e Number [facility] [address] [place] [address] SERVICES documented in this encounter Visit Diagnoses Not on filedocumented in this encounter Care Teams Porcelain Waxer Relationship Specialty Start Date End Date Unknown, Provider, PCP - General 03/07/14 07/12/14 documented as of this encounter
--- OUTSIDE RECORDS SUMMARY | 2022-04-06 10:49 | XMS_ITS | Encounter Summary ---
:1945 Author Organization [facility] Address [address] [place] [address] Care Team Providers Name Role Phone Lovely Vicente MD Primary Care Provider Encounter Details Date Type Department Care Team Description 08/11/2019 Lab Requisition [facility] Unknown, Provider, Pathology & Laboratory [facility] [address] [facility] [place] [address] Social History Tobacco Use Types Packs/Day Years [...] Pathologist Sig nature Salmonella PCR Negative Negative [facility] SERVICES Shigella/Enteroinvasive Negative Negative [facility] R E. coli LABORATORY SERVICES HN LAB CAMPYLOBACTER PCR Negative Negative [facility] ER LABORATORY SERVICES Shiga Toxin PCR Negative Negative [facility] SERVICES Specimen Feces - Specimen from rectum (specimen) Performing Organization Address City/State/ZIP Code Phon e Number [facility] [address] [place] [address] SERVICES documented in this encounter Visit Diagnoses Not on filedocumented in this encounter Care Teams Family Medicine Physician Assistant Relationship Specialty Start Date End Date Lovely Vicente MD PCP - General 07/13/14 documented as of this encounter
--- OUTSIDE RECORDS SUMMARY | 2022-04-06 10:49 | XMS_ITS | Encounter Summary ---
:1945 Author Organization [facility] Address [address] [place] [address] Care Team Providers Name Role Phone Lovely Vicente MD Primary Care Provider Encounter Details Date Type Department Care Team Description 01/01/2020 Lab Requisition [facility] Outr Resulting Lab, Pathology & Laboratory Provider [facility] [address] [place] [address] Social History Tobacco Use Types Packs/Day Years [...] e Number [facility] [address] [place] [address] SERVICES documented in this encounter Visit Diagnoses Not on filedocumented in this encounter Care Teams Oil Pumper Relationship Specialty Start Date End Date Lovely Vicente MD PCP - General 07/13/14 documented as of this encounter
--- OUTSIDE RECORDS SUMMARY | 2022-04-06 10:49 | XMS_ITS | Encounter Summary ---
:1945 Author Organization [facility] Address [address] [place] [address] Care Team Providers Name Role Phone Lovely Vicente MD Primary Care Provider Encounter Details Date Type Department Care Team Description 01/28/2022 Lab Requisition [facility] Outr Resulting Lab, Pathology & Laboratory Provider [facility] [address] [place] [address] Social History Tobacco Use Types Packs/Day Years Used Date Never Assessed Sex Assigned at Date Recorded Not on file documented as of this encounter Plan of Treatment Not on filedocumented as of this encounter Procedures Procedure Name Priority Date/Time Associated Diagnosis Comme nts COVID-19 TEST [facility] Today 01/27/2022 14:30 LAB PCR EDT COVID-19 TESTING Routine 01/27/2022 14:30 Results for this EDT procedure are i n the results section. documented in this encounter Results COVID-19 TEST [facility] LAB PCR (01/27/2022 14:30 EDT) Specimen Swab Performing Organization Address City/State/ZIP Code Phon e Number [facility] [address] [place] [address] SERVICES COVID-19 TESTING (01/27/2022 14:30 EDT) COVID-19 rt-PCR Negative Negative [facility] Result Comment: CENTER LABORATORY This test [...] was performed using the meliton SARS-CoV-2 assay ([employer] on the Meliton 6800 System Performing Lab [place]iton [address] [facility] Lab [facility] SERVICES Specimen Swab Performing Organization Address City/State/ZIP Code Phon e Number [facility] [address] [place] [address] SERVICES documented in this encounter Visit Diagnoses Not on filedocumented in this encounter Care Teams Crystalizer Tender Relationship Specialty Start Date End Date Lovely Vicente MD PCP - General 07/13/14 documented as of this encounter
--- OUTSIDE RECORDS SUMMARY | 2022-04-08 08:45 | XMS_ITS | Encounter Summary ---
:1945 [place] [address] Care Team Providers Name Role Phone Lovely Vicente MD Primary Care Provider Reason for Visit Reason Onset Date Comments Follow-up 02/26/2022 Entresto start Encounter Details Date Type Department Care Team Description 02/26/2022 Telephone [facility] [place] [facility] [place] Comer, Follow-up ([facility] RN start) [place] [address] Social History Tobacco Use Types Packs/Day [...] on 03/05/22 Getting labs done at : [facility] Order e-faxed by STEPHANIE Poole on 02/24/22. /pt to call on 03/05/22 letting us know to get the BMP results from [facility]. Nursing to get results and contact pt to see how he is tolerating the Entresto. They are to call sooner with any questions/concerns. documented in this encounter Plan of Treatment Upcoming Encounters Date Type Specialty Care Team Description 05/28/2022 Appointment Cardiology Zulma Dolan MD [facility] [place], [place] [address] (Wo rk) 05/28/2022 Laboratory Appointment Lab 05/28/2022 Office Visit Cardiology Zulma Dolan MD [facility] [place] [address] Liz Poole PA [facility] [place] [address] 06/10/2022 Office Visit Dermatology Laura Scherer MD [facility] [address] [place], [place] [address] (Wo rk) documented as of this encounter Visit Diagnoses Not on filedocumented in this encounter Care Teams Legal Internship Relationship Specialty Start Date End Date Lovely Vicente MD PCP - General 04/16/[address] [place] [address] documented as of this encounter
--- OUTSIDE RECORDS SUMMARY | 2022-04-08 08:45 | XMS_ITS | Encounter Summary ---
:1945 Author Organization [facility] Address [facility] [place] [address] Care Team Providers Name Role Phone Lovely Vicente MD Primary Care Provider Reason for Visit Reason Onset Date Comments Medication Refill 03/06/2022 Metoprolol Succinate Encounter Details Date Type Department Care Team Description 03/06/2022 Refill Cardiology at [facility] Liz Poole PA Medication Refill [facility] (Vt toprolol Succinate) [place] [address] Cardiology Dept [phone] [place], [place] [address] (Wo rk) Social History Tobacco [...] Dolan MD [facility] [place] [address] [place], [place] [address] (Wo rk) 05/28/2022 Laboratory Appointment Lab 05/28/2022 Office Visit Cardiology Zulma Dolan MD [facility] [place] [address] Liz Poole PA [facility] [place] [address] 06/10/2022 Office Visit Dermatology Laura Scherer MD [facility] ER DR [address] [place], [place] [address] (Wo rk) documented as of this encounter Visit Diagnoses Diagnosis Chronic systolic heart failure Cardiomyopathy, ischemic Other specified forms of chronic ischemi c heart disease documented in this encounter Care Teams Inpatient Services Director Relationship Specialty Start Date End Date Lovely Vicente MD PCP - General 04/16/[address] [place] [address] documented as of this encounter
--- OUTSIDE RECORDS SUMMARY | 2022-04-08 08:45 | XMS_ITS | Encounter Summary ---
:1945 Author Organization [facility] [place] [address] Care Team Providers Name Role Phone Lovely Vicente MD Primary Care Provider Encounter Details Date Type Department Care Team Description 02/24/2022 Notes Only [place] [address] Social History Tobacco Use Types Packs/Day [...] return to the Medication Assistance Program. The [facility] office will follow up with the patient in 5 business days to see if the patient has received the application and if they have any questions. documented in this encounter Plan of Treatment Upcoming Encounters Date Type Specialty Care Team Description 05/28/2022 Appointment Cardiology Zulma Dolan MD [facility] [address] [place], [place] [address] (Wo rk) 05/28/2022 Laboratory Appointment Lab 05/28/2022 Office Visit Cardiology Zulma Dolan MD [facility] [place] [id number] Liz Poole PA [facility] [place] [address] 06/10/2022 Office Visit Dermatology Laura Scherer MD [facility] ER [address] [place], [place] [address] (Wo rk) documented as of this encounter Visit Diagnoses Not on filedocumented in this encounter Care Teams Soubrette Relationship Specialty Start Date End Date Lovely Vicente MD PCP - General 04/16/[address] [place] [address] documented as of this encounter"
--- OUTSIDE RECORDS SUMMARY | 2022-04-08 08:45 | XMS_ITS | Clinical Summary ---
:1945 Author Organization [facility] [place] [address] Care Team Providers Name Role Phone Lovely [...] Encounters Date Type Specialty Care Team Description 04/07/2022 Refill Cardiology Valerie, Medication Refi ll STEPHANIE Tellez 03/26/2022 Office Visit Cardiology Vitaliy Nobles, Chronic [...] 02/20/2022 Specialty Pharmacy Pharmacy Lamberto Smith A uthoribret J (Entresto 24-26 mg tablets) 02/19/2022 Office Visit Cardiology Virgilio Chronic systoli c heart Liz, PA failure 02/19/2022 Laboratory Lab Chronic systoli c heart Appointment failure 01/30/2022 Surgery Cardiology Vitaliy Nobles, CARDIAC CATHET ERIZATION 01/30/2022 Laboratory Lab ASCVD (arterios clerotic Appointment cardiovascular disease) 01/30/2022 Hospital Encounter Vitaliy Nobles, ASCVD (a rteriosclerotic cardiovascular disease); 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; ASHD (arteriosc lerotic heart disease) 01/28/2022 Orders Only Cardiology Teressa, ASCVD (arterios clerotic STEPHANIE Maya cardiovascular disease) 01/28/2022 Telephone Cardiology Chitra Angela Advice Only Eliseo, RN from Last 3 Months Immunizations Name [...] [facility] [address] [place] [address] (Wo rk) 05/28/2022 Laboratory Appointment Lab 05/28/2022 Office Visit Cardiology Zulma Dolan MD [facility] [place] [address] Liz Poole PA [facility] Cardiology [place] [address] 06/10/2022 Office Visit Dermatology Laura Scherer MD [facility] [address] [place], [place] [address] (Wo rk) Health Maintenance Due Date Last Done Comments Covid-19 Vaccine (#1) 1950 Pneumoccocal Vaccine: 65+ (1 - PCV) 1952 Hepatitis C Screening 1964 Tdap adult 1965 Tetanus vaccine 1965 Zoster vaccine (1 of 2) 1996 Colonoscopy 01/16/2019 01/16/2014, 01/16/2014 Influenza (Flu) vaccine (1 of 1 - 03/26/2022 03/29/2013, Influenza standard series) Medical Devices Implanted Type Area Humanities Instructor Device Shelf Model / Identifier Expiration Serial / Date Lot Cable,Cut,Edg,Blnt,Ss,3tpr ([id number]) - [id number] IMPLANTS Midline: [employer] 04/01/2022 [id number] / Implanted: Qty: 4 on 07/07/2017 by Yuan Retana MD at [facility] [employer]Y - / [id number] Procedures Procedure Name Priority Date/Time Associated Diagnosis [...] Time Signature WBC 7.2 4.0 - 9.5 [facility] [place] x10(3)/[facility] LABORATORY RBC 4.41 (L) 4.58 - [facility] [place] 5.54 [facility] x10(6)/[facility] LABORATORY Hemoglobin 13.2 (L) 13.7 - [facility] RYAN 16.5 g/dL [facility] LABORATORY Hematocrit 40.9 40.5 - [place] RYAN 48.5 % [facility] LABORATORY MCV 92.7 82.9 - [facility] RYAN 93.1 [facility] LABORATORY MCH 29.9 27.5 - [place] R[place]AN 32.1 pg [facility] LABORATORY MCHC 32.3 32.0 - [facility] RYAN 35.7 g/dL [facility] LABORATORY Platelets 191 145 - 357 [facility] [place] x10(3)/[facility] LABORATORY RDWSD 53.6 (H) 36.0 - [facility] [employer] 45.0 [facility] LABORATORY RDWCV 15.6 (H) 11.4 - [place] RYAN 13.8 % [facility] LABORATORY MPV 8.7 7.6 - 12.9 [facility] R[place] [facility] LABORATORY nRBC % Auto 0.0 % [facility] LABORATORY nRBC Abs Auto 0.000 0.000 - [place]AN 0.000 [facility] x10(3)/[facility] LABORATORY Specimen Anatomical Collection Method Collection Time Receive d Time (Source) Location / / Volume Laterality Blood 02/19/2022 8:06 AM 2 8:09 EDT AM EDT Resulting Agency Comment Spec In Lab Liz BROWN HEMATOLOGY ORDERABLES Performing Organization Address City/State/[place] [address] (ABNORMAL) Differential, Automated (02/19/2022 8:06 AM EDT)Only the most recent of3 resultswithin the time period is included. [facility] Method Time Signature Neutrophils % 76.0 % [facility] LABORATORY Neutr Abs (ANC) 5.49 1.70 - [facility] 6.10 [facility] x10(3)/[facility] LABORATORY Lymphocytes % 10.8 % [facility] LABORATORY Lymphocytes Abs 0.8 (L) 0.9 - 3.2 [facility] x10(3)/[facility] LABORATORY Monocytes % 10.2 % [facility] LABORATORY Monocyte Abs 0.7 0.3 - 0.9 [facility] x10(3)/[facility] LABORATORY Eosinophils % 1.2 % [facility] LABORATORY Eosinophils Abs 0.1 0.0 - 0.4 [facility] x10(3)/[facility] LABORATORY Basophils % 0.8 % [facility] LABORATORY Basophils Abs 0.1 0.0 - 0.1 [facility] x10(3)/[facility] LABORATORY Immature Gran % 1.00 [...] Gran Abs 0.07 (H) 0.00 - 0.04 x10(3)/[facility] LABORATORY Specimen Anatomical Collection Method Collection Time Receive d Time (Source) Location / / Volume Laterality Blood 02/19/2022 8:06 AM 2 8:09 EDT AM EDT Resulting Agency Comment Spec In Lab Liz BROWN HEMATOLOGY ORDERABLES Performing Organization Address City/[facility]/ZIP Code Phon e Number [address] (ABNORMAL) pro-Brain Natriuretic Peptide (02/19/2022 8:06 AM EDT) athologist Signature ProBNP 984 (H) <=449 pg/mL [facility] LABORATORY Specimen Anatomical Collection Method Collection Time Receive d Time (Source) Location / / Volume Laterality Blood 02/19/2022 8:06 AM 2 8:09 EDT AM EDT Resulting Agency Comment Spec In Lab Zulma Plunkett MD CHEMISTRY ORDERABLES Performing Organization Address City/[facility]/[place] [address] POCT Glucose (01/30/2022 1:41 PM EDT)Only the most recent of4 resultswithin the time period is included. athologist Signature POC Glucose 148 65 - 199 [facility] mg/dL [facility] LABORATORY Comment: Supplemental [...] [facility]/[place]IP [place] [address] EKG 12 Lead (01/30/2022 10:33 AM EDT) Component Value Ref Range Test Analysis Performed Pathologis t Method Time At Signature Ventricular rate 64 BPM MUSE SYSTEM Atrial Rate 64 BPM MUSE SYSTEM P-R Interval 162 ms MUSE SYSTEM QRS Duration 94 ms MUSE SYSTEM Q-T Interval 422 ms MUSE SYSTEM QTC Calculated 435 ms MUSE SYSTEM (Bezet) Calculated P [place] 41 degrees MUSE SYSTEM Calculated R [place] -27 degrees MUSE SYSTEM Calculated T [place] 104 degrees MUSE SYSTEM INTERPRETATION Normal sinus rhythm MUSE SYSTEM Anterolateral infarct (cited on or before 17-MAY-2022) Abnormal ECG When compared with ECG of 10-DEC-2021 11:17, No significant change was found Confirmed by Gary Perez ([id number]) on 01/30/2022 5:57:5 2 PM Specimen Anatomical [...] Laterality Volume Narrative 01/30/2022 2:09 PM EDT ?[facility] ? Cardiac Cathete rization/Intervention Report ? Patient Name: Génesis Fatimarory Mccollum. ? Procedure Date: 01/30/2022 ? A #: [id number] ? Primary Physician: Mallorie, Vitaliy P ? Case #: [id number] ? File Name: [id number] ? Catheterization Order Number: [id number] ? [facility] ? Final Report [place], [place] ? Patient Name: ? Don E. Stewa rt ? ID#: ?[id number] ? : ?1945 ? Procedure Date: ? [...] patient was ?designated as ASA Class III. [facility] clinical frailty scale is 5: Mildly ?Frail. [...] was Urgent. The indication for ?the laborer powerhouse visit is stable kn own CAD. Chest [...] guiding catheter an d a 3.5 Fr [facility] [employer] [address] ??20 Mhz ?using Manual pullback. ??Imagin [...] ?? A premounted 2.00 x 26 mm [place] Cass (TUCKER) ? was deployed wi th a [...] Wedelivered along 2.0 x 26 mm HARDEEP Cass ? TUCKER stent and p ositioned it [...] administered prior to arrival in the laborer powerhouse. ?Recommended anti-platelet/anti- thrombotic regimen: ?Continue aspirin 81 [...] ?modification of this regimen. C onsult [facility] Interventional Cardiology for ?questions. ?The 1 year [...] using a 2.0 x 26 mm [place] Cass TUCKER stent. ?This completes the revasculariz ation [...] advised cardiac rehab. ?The attending physician was en t for the entire procedure. ?Dr. Vitaliy Nobles M.D. performed th e coronary angiography, left heart ?catheterization, bypass graft stud y, IVUS # coronary, stent ?insertion-coronary and peripheral intravascular ultrasound. ? Vitaliy P Nobles, M.D. ? Electronically Signed by: Vitaliy P Nobles, M .D. ? Report Finalized: 01/30/2022 ??14:02 ? Report Last Ammended: 03/06/2022 ??12:08 ? Procedure Note Vitaliy Nobles MD - 03/06/2022 [facility] Cardiac Catheterization/Intervention Re port Patient Name: Don Fatima Procedure Date: 01/30/2022 A #: [id number] Primary Physician: Vitaliy Nobles Case #: File Name: [id number] Catheterization Order Number: [id number] [facility] Pasteurizing Supervisor [facility] Final Report [place], [place] Patient Name: Don Fatima ID#: [...] was designated as ASA Class III. The [facility] c linical frailty scale is [...] was Urgent. The indication for the laborer powerhouse visit is stable known CAD. Chest pain [...] 1.5 guiding catheter and a 3.5 Fr [facility] [employer] [address] 20 Mhz using Manual pullback. Imaging [...] A premounted 2.00 x 26 mm [place] Cass (TUCKER) was deployed with a maximum inflation [...] along 2. 0 x 26 mm [place] TUCKER stent and positioned it at the [...] prior t o arrival in the laborer powerhouse. Recommended anti-platelet/anti-thrombot ic regimen: Continue aspirin 81 [...] require modification of this regimen. Consult D [facility] Interventional [...] using a 2.0 x 26 mm [place] Cass TUCKER stent. This completes the revascularization of [...] T ype Group Dates MEDICARE MEDICARE PART [id number] 2011-Prese [phone] [facility] [place] [id number] [employer] [place] V[place] [id number] 2018-Prese [phone] [address] [place] [address] [place] [address] Advance Directives Documents on File Type Date Recorded Patient Alum Operator Explanati on Advance Directives and Living [...] capacity to make decision: Yes Care Teams Petroleum Production Engineer Relationship Specialty Start Date End Date Lovely Vicente MD PCP - General 04/16/15 [address] [place] [address]
--- OUTSIDE RECORDS SUMMARY | 2022-04-08 08:45 | XMS_ITS | Encounter Summary ---
:1945 Author Organization [place] [address] Care Team Providers Name Role Phone Lovely Vicente MD Primary Care Provider Reason for Visit Reason Comments Medication Refill Encounter Details Date Type Department Care Team Description 04/07/2022 Refill Cardiology at [facility] Janneth Padilla PA Medication Refill [facility] [place] [address] CARDIOLOGY DEPT. [phone] [place], [place] [address] (Wo rk) Social History Tobacco [...] Dolan MD [facility] er [place], [place] [address] (Wo rk) 05/28/2022 Laboratory Appointment Lab 05/28/2022 Office Visit Cardiology Zulma Dolan [place] [address] Liz Poole PA [facility] [place] [address] 06/10/2022 Office Visit Dermatology Laura Scherer MD [facility] [address] [place], [place] [address] (Wo rk) documented as of this encounter Visit Diagnoses Not on filedocumented in this encounter Care Teams Top Closer Relationship Specialty Start Date End Date Lovely Vicente MD PCP - General 04/16/[address] [place] [address] [address] [place] [address] documented as of this encounter
--- OUTSIDE RECORDS SUMMARY | 2022-04-08 08:45 | XMS_ITS | Encounter Summary ---
:1945 [place] [address] Care Team Providers Name Role Phone Lovely Vicente MD Primary Care Provider Reason for Visit Reason Onset Date Comments Follow-up 03/06/2022 Dave Bueno Encounter Details Date Type Department Care Team Description 03/06/2022 Telephone Cardiology at [facility] Martha Comer, Follow-up ([facility] VAMSI Start) [place] [address] Social History Tobacco Use Types Packs/Day [...] pt had gotten his labs done at [facility] yesterday. Results received, scanned and entered [...] Dolan MD [facility] Dr [place], [place] [address] (Wo rk) 05/28/2022 Laboratory Appointment Lab 05/28/2022 Office Visit Cardiology Zulma Dolan MD [facility] [place] [address] Liz Poole PA [facility] [place] [address] 06/10/2022 Office Visit Dermatology Laura Scherer MD [facility] [address] [place], [place] [address] (Wo rk) documented as of [...] on filedocumented in this encounter Care Teams Training Manager Relationship Specialty Start Date End Date Lovely Vicente MD PCP - General 04/16/[address] [place] [address] documented as of this encounter
--- OUTSIDE RECORDS SUMMARY | 2022-04-08 08:45 | XMS_ITS | Encounter Summary ---
:1945 Author Organization [facility] [place] [address] Care Team Providers Name Role Phone Lovely Vicente MD Primary Care Provider Reason for Visit Reason Onset Date Comments Medication Refill 03/11/2022 Encounter Details Date Type Department Care Team Description 03/06/2022 Refill Cardiology at [facility] Liz Poole PA Medication Refill [facility] Jorge mcnamara [facility] [place] [address] Cardiology Dept [phone] [place], [place] [address] (Wo rk) Social History Tobacco [...] MD [facility] er [place], [place] [address] (Wo rk) 05/28/2022 Laboratory Appointment Lab 05/28/2022 Office Visit Cardiology Zulma Dolan MD [facility] [place] [address] Liz Poole PA [facility] [place] [address] 06/10/2022 Office Visit Dermatology Laura Scherer MD [facility] ER DR [address] [place], [place] [address] (Wo rk) documented as of this encounter Visit Diagnoses Not on filedocumented in this encounter Care Teams Director Regulatory Compliance Relationship Specialty Start Date End Date Lovely Vicente MD PCP - General 04/16/[address] [place] [address] documented as of this encounter
--- OUTSIDE RECORDS SUMMARY | 2022-04-08 08:45 | XMS_ITS | Encounter Summary ---
:1945 Author Organization [facility] [address] Care Team Providers Name Role Phone Lovely Vicente MD Primary Care Provider Encounter Details Date Type Department Care Team Description 02/24/2022 Orders Only Cardiology at [facility] Liz Poole, Chronic systolic heart [facility] [place] [address] Cardiology Dept [place], [place] [address] Social History Tobacco Use Types [...] MD [facility] er [place], [place] [address] (Wo rk) 05/28/2022 Laboratory Appointment Lab 05/28/2022 Office Visit Cardiology Zulma Dolan MD [facility] [place] [address] Liz Poole PA [facility] [place] [address] 06/10/2022 Office Visit Dermatology Laura Scherer MD [facility] ER DR [address] [place], [place] [address] (Wo rk) documented as of this encounter Visit Diagnoses Diagnosis Chronic systolic heart failure documented in this encounter Care Teams Pharmacy Buyer Relationship Specialty Start Date End Date Lovely Vicente MD PCP - General 04/16/[address] [place] [address] documented as of this encounter
--- OUTSIDE RECORDS SUMMARY | 2022-04-08 08:45 | XMS_ITS | Encounter Summary ---
:1945 Author Organization [facility] [place] [address] Care Team Providers Name Role Phone Lovely Vicente MD Primary Care Provider Encounter Details Date Type Department Care Team Description 03/26/2022 Office Visit Cardiology at [facility] Vitaliy Nobles MD Chronic systolic heart failure; [facility] ONE MEDICAL ASCVD (ar teriosclerotic cardiovascular disease); [facility] Cardiomyopathy, ischemic [place], [place] CARDIOLOGY [address] [place] [address] [phone] Social History Tobacco Use Types Packs/Day Years [...] the original note were not included. [facility] [place] [address] CARDIOLOGY OUTPATIENT CLINIC VISIT [facility] Don Mccollum Kushal 03/26/2022 Referring Providers: MD Jules Cr Joyce, MD [address] [place] [address] CHIEF COMPLAINT: I am doing well CARDIAC-RELEVANT [...] using a 2.0 x 26 mm [place] TUCKER stent. This completes therevascularization of all [...] in [address] Lovely Vicente MD [address] [place] [address] HISTORY OF PRESENT ILLNESS: Don Fatima is [...] using a 2.0 x 26 mm [place] TUCKER stent. This completes the revascularization of [...] performed by Yonathan Smith MD at [facility] OR ??? PRO CABG, ARTERIAL, SINGLE N/A 07/07/2017 @CABG, USING ARTERIAL GRAFT;SINGLE ARTERIAL GRAFT (WRVU 33.75) performed by Yuan Retana MD at [facility] OR ??? PRO CABG, ARTERY-VEIN, TWO N/A 07/07/2017 @CABG, TWO VENOUS GRAFTS & ARTERIAL GRAFT (WRVU 7.93) performed by Yuan Retana MD at [facility] OR ??? PRO COLONOSCOPY, REMV LESN, [...] [facility] MAIN OR ??? PRO PERC TRLUML CORONARY STENT W/ANGIO ONE ART/BRANCH N/A 01/30/2022 STENT PLACEMENT-SINGLE MAJOR CORONARY ARTERY OR BRANCH performed by Vitaliy Nobles MD at [facility] CATH LABS ??? PRO THYROIDECTOMY 03/28/2013 THYROIDECTOMY, TOTAL OR COMPLETE performed by Manny Mcknight MD at [facility] MAIN OR SOCIAL HISTORY: reports that he [...] using a 2.0 x 26 mm [place] TUCKER stent. This completes the revascularization of [...] Sincerely, Dr. Vitaliy Nobles MD [facility] [employer] Organ Assembler Interventional Cardiology 03/26/2022 CC: Lovely Vicente MD [...] per DC Summary - Admitted to [facility] on 12/08/21, transferred from [facility], [...] regurgitation present. 07/07/2019 - 07/21/2019 Zio Patch Membership Correspondent The patient had a minimum heart rate [...] 12.5 mg daily 6. Post-op atrial fibrillation [id number] (CHF, HTN, DM, vascular disease, thromboembolism) [...] Cardiology Zulma Dolan MD [facility] [place] [address] (Wo rk) 05/28/2022 Laboratory Appointment Lab 05/28/2022 Office Visit Cardiology Zulma Dolan MD [facility] [place] [address] Liz Poole PA [facility] [place] [address] 06/10/2022 Office Visit Dermatology Laura Scherer MD [facility] DR [address] [place], [place] [address] (Wo rk) documented as of this encounter Visit Diagnoses Diagnosis Chronic systolic heart failure ASCVD (arteriosclerotic cardiovascular d isease) Unspecified cardiovascular disease Cardiomyopathy, ischemic Other specified forms of chronic ischemi c heart disease documented in this encounter Care Teams Manufacturing Engineer Assembly Relationship Specialty Start Date End Date Lovely Vicente MD PCP - General 04/16/[address] [place] [address] documented as of this encounter
--- OUTSIDE RECORDS SUMMARY | 2022-04-08 08:46 | XMS_ITS | Encounter Summary ---
:1945 Author Organization [facility] [place] [address] Care Team Providers Name Role Phone Lovely Vicente MD Primary Care Provider Reason for Visit Reason Onset Date Comments Medication Refill 12/12/2021 Torsemide Encounter Details Date Type Department Care Team Description 12/12/2021 Refill Cardiology at [facility] Janneth Padilla, Medication Refill [facility] STEPHANIE (Torsemide) [place] [address] CARDIOLOGY DEPT. [place], [place] [address] (Wo rk) Social History Tobacco [...] [facility] [address] [place], [place] [address] (Wo rk) 05/28/2022 Laboratory Appointment Lab 05/28/2022 Office Visit Cardiology Zulma Dolan [place] [address] Liz Poole PA [facility] [place] [address] 06/10/2022 Office Visit Dermatology Laura Scherer MD [facility] ER [address] [place], [place] [address] (Wo rk) documented as of this encounter Visit Diagnoses Diagnosis Chronic systolic heart failure documented in this encounter Care Teams Cad Operator Relationship Specialty Start Date End Date Lovely Vicente MD PCP - General 04/16/[address] [place] [address] documented as of this encounter
--- OUTSIDE RECORDS SUMMARY | 2022-04-08 08:46 | XMS_ITS | Encounter Summary ---
:1945 [place] [address] Care Team Providers Name Role Phone Lovely Vicente MD Primary Care Provider Encounter Details Date Type Department Care Team Description 12/30/2021 Notes [facility] [place] [address] Social History Tobacco Use Types Packs/Day [...] Failure team. DX: HFrEF. Referral placed to [facility] documented in this encounter Plan of Treatment Upcoming Encounters Date Type Specialty Care Team Description 05/28/2022 Appointment Cardiology Zulma Dolan MD [facility] Dr [place], [place] [address] (Wo rk) 05/28/2022 Laboratory Appointment Lab 05/28/2022 Office Visit Cardiology Zulma Dolan MD [facility] [place] [address] Liz Poole PA [facility] [place] [address] 06/10/2022 Office Visit Dermatology Laura Scherer MD [facility] ER DR [address] [place], [place] [address] (Wo rk) documented as of this encounter Visit Diagnoses Not on filedocumented in this encounter Care Teams Senior Technical Recruiter Relationship Specialty Start Date End Date Lovely Vicente MD PCP - General 04/16/[address] [place] [address] documented as of this encounter
--- OUTSIDE RECORDS SUMMARY | 2022-04-08 08:46 | XMS_ITS | Encounter Summary ---
:1945 Author Organization [facility] [place] [address] Care Team Providers Name Role Phone Lovely Vicente MD Primary Care Provider Encounter Details Date Type Department Care Team Description 12/24/2021 Telephone Public Health at [facility] [place] [address] Social History Tobacco Use Types Packs/Day [...] Zulma Dolan MD [facility] [address] [place], [place] [address] (Wo rk) 05/28/2022 Laboratory Appointment Lab 05/28/2022 Office Visit Cardiology Zulma Dolan MD [facility] [place] [address] Liz Poole PA [facility] [place] [address] 06/10/2022 Office Visit Dermatology Laura Scherer MD [facility] ER [address] [place], [place] [address] (Wo rk) documented as of this encounter Visit Diagnoses Not on filedocumented in this encounter Care Teams Gas Tender Relationship Specialty Start Date End Date Lovely Vicente MD PCP - General 04/16/[address] [place] [address] documented as of this encounter
--- OUTSIDE RECORDS SUMMARY | 2022-04-08 08:46 | XMS_ITS | Encounter Summary ---
:1945 Author Organization [facility] [place] [address] Care Team Providers Name Role Phone Lovely Vicente MD Primary Care Provider Encounter Details Date Type Department Care Team Description 02/19/2022 Laboratory Appointment Lab 3L [facility] [place] [id number] Social History Tobacco Use Types Packs/Day Years [...] Dolan MD [facility] [place] [address] (Wo rk) 05/28/2022 Laboratory Appointment Lab 05/28/2022 Office Visit Cardiology Zulma Dolan MD [facility] [place] [address] Liz Poole PA [facility] [place] [address] 06/10/2022 Office Visit Dermatology Laura Scherer MD [facility] [address] [place] [address] (Wo rk) documented as of this encounter [...] (ABNORMAL) Differential, Automated (02/19/2022 8:06 AM EDT) [facility] gist Method Time Signature Neutrophils % 76.0 % [facility] Neutr Abs (ANC) 5.49 1.70 - [facility] 6.10 [facility] x10(3)/[facility] LABORATORY Lymphocytes % 10.8 % [facility] Lymphocytes Abs 0.8 (L) 0.9 - 3.2 [facility] x10(3)/[facility] LABORATORY Monocytes % 10.2 % [facility] Monocyte Abs 0.7 0.3 - 0.9 [facility] x10(3)/[facility] LABORATORY Eosinophils % 1.2 % [facility] Eosinophils Abs 0.1 0.0 - 0.4 [facility] x10(3)/[facility] LABORATORY Basophils % 0.8 % [facility] Basophils Abs 0.1 0.0 - 0.1 [facility] x10(3)/[facility] LABORATORY Immature Gran % 1.00 [...] City/State/ZIP [place] [address] (ABNORMAL) Hemogram (02/19/2022 8:06 AM EDT) Analysis Performed At Patho logist Time Signature WBC 7.2 4.0 - 9.5 [facility] x10(3)/[facility] LABORATORY RBC 4.41 (L) 4.58 - [facility] 5.54 [facility] x10(6)/[facility] LABORATORY Hemoglobin 13.2 (L) 13.7 - [facility] 16.5 g/dL [facility] Hematocrit 40.9 40.5 - [facility] 48.5 % [facility] MCV 92.7 82.9 - [facility] 93.1 [facility] LABORATORY MCH 29.9 27.5 - [facility] 32.1 pg [facility] MCHC 32.3 32.0 - [facility] 35.7 g/dL [facility] Platelets 191 145 - 357 [facility] x10(3)/[facility] LABORATORY RDWSD 53.6 (H) 36.0 - [facility] 45.0 [facility] LABORATORY RDWCV 15.6 (H) 11.4 - [facility] 13.8 % [facility] MPV 8.7 7.6 - 12.9 [facility] LABORATORY nRBC % Auto 0.0 % [facility] nRBC Abs Auto 0.000 0.000 - [facility] 0.000 [facility] x10(3)/[facility] LABORATORY Specimen Anatomical Collection Method Collection Time Receive d Time (Source) Location / / Volume Laterality Blood 02/19/2022 8:06 AM 2 8:09 EDT AM EDT Resulting Agency Comment Spec In Lab Liz BROWN HEMATOLOGY ORDERABLES Performing Organization Address City/[facility]/[place] [address] (ABNORMAL) pro-Brain Natriuretic Peptide [...] Organization Address City/State/[place] [address] (ABNORMAL) Basic Metabolic Panel (non-fasting) (02/19/2022 8:06 AM EDT) P athologist Signature Glucose Lvl 139 65 - 199 [facility] mg/dL [facility] Comment: Diabetes: >=200 mg/dL [...] - 107 mmol/L [facility] CO2 31 22 - 31 mmol/L [facility] [...] City/State/ZIP [place] [address] documented in this encounter Visit Diagnoses Diagnosis Chronic systolic heart failure documented in this encounter Care Teams Steam Flattener Relationship Specialty Start Date End Date Lovely Vicente MD PCP - General 04/16/[address] [place] [address] documented as of this encounter
--- OUTSIDE RECORDS SUMMARY | 2022-04-08 08:46 | XMS_ITS | Encounter Summary ---
:1945 Author Organization [facility] Address [facility] [place] [address] Care Team Providers Name Role Phone Lovely Vicente MD Primary Care Provider Reason for Visit Reason Comments Prior Authorization Entresto 24-26mg tablets Encounter Details Date Type Department Care Team Description 02/20/2022 Specialty Pharmacy Pharmacy at [facility] Lamberto Smith Prior Authorization [facility] J (Entresto 24-26mg Drive tablets) [place] [id number] Social History Tobacco Use Types Packs/Day Years [...] Don Fatima Patient : 1945 Patient Address: [address] [place] [address] [place] [address] (home) Medication Name: ENTRESTO 24 MG-26 MG TABLET Medication ID: [id number] Patient Location: [facility] 4A Patient Location Comment: Medication Strength Frequency Requested: Entresto 24-26mg tablets / One tablet twice daily Qty/Day Supply: New Start: New to Therapy Diagnosis & ICD-10 Code: Chronic systolic heart failure, I50.22 Subscriber Insurance: Storwize [facility] Subscriber Insurance Comment: Fax: Physician: LIZ CARRERA Physician Comment : PA Status: NO PA REQUIRED Insurance mandated Pharmacy: Unknown Fillable at [facility]: Yes Insurance requirements/notes: None Copay: $119.01 (goes to coverage gap/odalys monteiro) Copay assistance: [employer] Copay assistance comment: If cost isn't affordable, then we'll suggest enrollment in the currently open [facility] Heart Failure zoila, which provides up to $1000 in copay assistance. If zoila closes, or doesn't work out, then the patient can attempt enrollment in the clinical science consultant assistance program, the [employer] Patient Assistance [employer] (NPAF). At which point we'd refer to [facility] for assistance with enrollment. Pharmacy [...] Dolan MD [facility] [place] [address] (Wo rk) 05/28/2022 Laboratory Appointment Lab 05/28/2022 Office Visit Cardiology Zulma Dolan MD [facility] [place] [address] Liz Carrera PA [facility] [place] [address] 06/10/2022 Office Visit Dermatology Laura Scherer MD [facility] ER [address] [place], [place] [address] (Wo rk) documented as of this encounter Visit Diagnoses Not on filedocumented in this encounter Care Teams Bag Mender Relationship Specialty Start Date End Date Lovely Vicente MD PCP - General 04/16/[address] [place] [address] documented as of this encounter
--- OUTSIDE RECORDS SUMMARY | 2022-04-08 08:46 | XMS_ITS | Encounter Summary ---
:1945 Author Organization [facility] [place] [address] Care Team Providers Name Role Phone Lovely Vicente MD Primary Care Provider Reason for Visit Auth/Cert Specialty Diagnoses / Procedures Referred By Contact Refer red To Contact Diagnoses ASCVD (arteriosclerotic cardiovascular disease) [I25.10] Vitaliy Nobles MD [facility] Procedures PRO PERC TRLUML CORONARY STENT W/ANGIO ONE ART/BRANCH CARDIAC CATHETERIZATION STENT PLACEMENT-SINGLE MAJOR CORONARY ARTERY OR BRANCH [facility] [place] [address] Referral ID Status Reason Start Date Expiration Date Visits Requ ested Visits Authorized [id number] 1 1 Encounter Details Date Type Department Care Team Description 01/30/2022 Laboratory Lab 3L Katalina ASCVD (arterios clerotic Appointment [facility] cardiovas cular disease) [place] [address] Social History Tobacco Use Types Packs/Day Years [...] Zulma Dolan MD [facility] [place], [place] [address] (Wo rk) 05/28/2022 Laboratory Appointment Lab 05/28/2022 Office Visit Cardiology Zulma Dolan MD [facility] [place] [address] [facility] [place] [address] 06/10/2022 Office Visit Dermatology Laura Scherer MD [facility] DR [address] [place], [place] [address] (Wo rk) documented [...] (ABNORMAL) Differential, Automated (01/30/2022 7:19 AM EDT) [facility] gist Method Time Signature Neutrophils % 77.9 % [facility] Neutr Abs (ANC) 5.31 1.70 - [facility] 6.10 [facility] x10(3)/[facility] LABORATORY Lymphocytes % 12.0 % [facility] Lymphocytes Abs 0.8 (L) 0.9 - 3.2 [facility] x10(3)/[facility] LABORATORY Monocytes % 8.1 % [facility] Monocyte Abs 0.6 0.3 - 0.9 [facility] x10(3)/[facility] LABORATORY Eosinophils % 0.4 % [facility] Eosinophils Abs 0.0 0.0 - 0.4 [facility] x10(3)/[facility] LABORATORY Basophils % 0.6 % [facility] Basophils Abs 0.0 0.0 - 0.1 [facility] x10(3)/[facility] LABORATORY Immature Gran % 1.00 % [facility] [...] Organization Address City/State/[place] [address] (ABNORMAL) Hemogram (01/30/2022 7:19 AM EDT) Analysis Performed At Patho logist Time Signature WBC 6.8 4.0 - 9.5 [facility] x10(3)/[facility] LABORATORY RBC 4.32 (L) 4.58 - [facility] 5.54 [facility] x10(6)/[facility] LABORATORY Hemoglobin 13.0 (L) 13.7 - [facility] g/dL [facility] Hematocrit 39.8 (L) 40.5 - [facility] 48.5 % [facility] MCV 92.1 82.9 - [facility] 93[facility]1 fL [facility] MCH 30.1 27.5 - [facility] 32.1 pg [facility] MCHC 32.7 32.0 - [facility] 35.7 g/dL [facility]OR[facility] Platelets 172 145 - 357 [facility] x10(3)/[facility] LABORATORY RDWSD 54.5 (H) 36.0 - [facility] 45.0 [facility] LABORATORY RDWCV 16.2 (H) 11.4 - [facility] 13.8 % [facility] LABORATORY MPV 9.0 7.6 - 12.9 [facility] LABORATORY nRBC % Auto 0.0 % [facility] LABORATORY nRBC Abs Auto 0.000 0.000 - [facility] 0.000 [facility] x10(3)/[facility] LABORATORY Specimen Anatomical Collection Method Collection Time Receive d Time (Source) Location / / Volume Laterality Blood 01/30/2022 7:19 AM 7:21 EDT AM EDT Resulting Agency Comment Spec In Lab Zulma BROWN HEMATOLOGY ORDERABLES Performing Organization Address City/State/[place] [address] (ABNORMAL) Basic Metabolic Panel (non-fasting) (01/30/2022 7:19 AM EDT) P athologist Signature Glucose Lvl 237 (H) 65 - 199 [facility] mg/dL [facility] Comment: Diabetes: [...] City/State/ZIP Code Phon e Number [place] [phone] HOSPITAL LABORATORY [address] documented in this encounter Visit Diagnoses Diagnosis ASCVD (arteriosclerotic cardiovascular d isease) Unspecified cardiovascular disease documented in this encounter Care Teams Tester Operator Relationship Specialty Start Date End Date Lovely Vicente MD PCP - General 04/16/[address] [place] [address] documented as of this encounter
--- OUTSIDE RECORDS SUMMARY | 2022-04-08 08:46 | XMS_ITS | Encounter Summary ---
:1945 Author Organization [facility] [place] [address] Care Team Providers Name Role Phone Lovely Vicente MD Primary Care Provider Encounter Details Date Type Department Care Team Description 01/28/2022 Orders Only Cosmetic Sales Advisor Zulma Finch ASCVD (art eriosclerotic [facility] cardiovascular disease) [facility] [place] [address] [place], [place] [phone] (Work) [phone] Social History Tobacco Use Types Packs/Day Years [...] MD [facility] [address] [place] [address] (Wo rk) 05/28/2022 Laboratory Appointment Lab 05/28/2022 Office Visit Cardiology uZlma Dolan MD [facility] [place] [address] Liz Poole PA [facility] [place] [address] 06/10/2022 Office Visit Dermatology Laura Scherer MD [facility] DR [address] [place], [place] [address] (Wo rk) documented as of this encounter Results (ABNORMAL) Basic Metabolic Panel (non-fasting) (01/30/2022 7:19 AM EDT) athologist Signature Glucose Lvl 237 (H) 65 - 199 [facility] mg/dL [facility] LABORATORY [...] Organization Address City/State/[place] [address] documented in this encounter Visit Diagnoses Diagnosis ASCVD (arteriosclerotic cardiovascular d isease) Unspecified cardiovascular disease documented in this encounter Care Teams Casino Cage Manager Relationship Specialty Start Date End Date Lovely Vicente MD PCP - General 04/16/[address] [place] [address] documented as of this encounter
--- OUTSIDE RECORDS SUMMARY | 2022-04-08 08:46 | XMS_ITS | Encounter Summary ---
:1945 Author Organization [facility] [place] [address] Care Team Providers Name Role Phone Lovely Vicente MD Primary Care Provider Encounter Details Date Type Department Care Team Description 12/15/2021 Telephone Cardiology at [facility] Barbara [place]era, [place] [address] Social History Tobacco Use Types Packs/Day [...] Zulma Dolan MD [facility] [place], [place] [address] (Wo rk) 05/28/2022 Laboratory Appointment Lab 05/28/2022 Office Visit Cardiology Zulma Dolan MD [facility] [place] [address] Liz Poole PA [facility] [place] [address] 06/10/2022 Office Visit Dermatology Laura Scherer MD [facility] [address] [place], [place] [address] (Wo rk) documented as of this encounter Visit Diagnoses Not on filedocumented in this encounter Care Teams Account Analyst Relationship Specialty Start Date End Date Lovely Vicente MD PCP - General 04/16/15 [facility] [address] [place] [address] documented as of this encounter
--- OUTSIDE RECORDS SUMMARY | 2022-04-08 08:46 | XMS_ITS | Encounter Summary ---
:1945 Author Organization [facility] Address [facility] [place] [address] Care Team Providers Name Role Phone Lovely Vicente MD Primary Care Provider Reason for Visit Auth/Cert Specialty Diagnoses / Procedures Referred By Contact Refer red To Contact Diagnoses ASCVD (arteriosclerotic cardiovascular disease) [I25.10] Vitaliy Nobles MD [facility] Procedures PRO PERC TRLUML CORONARY STENT W/ANGIO ONE ART/BRANCH CARDIAC CATHETERIZATION STENT PLACEMENT-SINGLE MAJOR CORONARY ARTERY OR BRANCH [facility] [place] [address] Referral ID Status Reason Start Date Expiration Date Visits Requ ested Visits Authorized [id number] 1 1 Encounter Details Date Type Department Care Team Description 01/30/2022 Hospital Encounter Short Stay Unit at Vitaliy Nobles, CVD (arteriosclerotic cardiovascular disease); Barbara Blue MD 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 Please follow up with your status controller in the next 4-6 weeks. We have [...] Murray RN - 01/30/2022 4:54 PM EDT [facility] Short Stay Unit Discharge Note [...] recent PCI presenting for staged PCI to [facility]. The pt states he has [...] recent PCI presenting for staged PCI to [facility]. The indications, expected benefits, and [...] SD/PCI Activity evaluation - Per SSU team oDn has history of prior AL and CABG. I had referred him to cardiac rehab at [facility] last month per HF team. He was waiting until this intervention before starting the program. Reviewed managing angina /use of sl nitroglycerin. Given parameters for home exercise. 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 We discussed short walks several times per day. Will send [facility] his discharge summary from this admission. The patient should be contacted by the Program within 1- 2 weeks from discharge. Brief Op Note - Vitaliy Nobles MD - 01/30/2022 10:19 AM EDT Images from the original note were not included. [facility] [place] [address] [address] CORONARY ANGIOGRAM AND PERCUTANEOUS CORONARY INTERVENTION REPORT Patient: Don Fatima : 1945 MR number: [id number] Date of Service: 01/30/2022 Doubler Operator: Vitaliy Nobles MD Fellow: KEYON Elizabeth [...] a long 2.0 x 26 mm [place] TUCKER stent and positioned it at [...] using a 2.0 x 26 mm [place] TUCKER stent. This completes the revascularization [...] 05/28/2022 Appointment Cardiology Zulma Dolan MD [facility] er [place] 0[address] (Wo rk) 05/28/2022 Laboratory Appointment Lab 05/28/2022 Office Visit Cardiology Zulma Dolan MD [facility] [address] [address] Liz Poole PA [facility] [place] [address] 06/10/2022 Office Visit Dermatology Laura Scherer MD [facility] [address] [facility] [place] [place] [address] (Wo rk) Scheduled Orders Name [...] P athologist Signature Neutrophils % 71.8 % [facility] LABORATORY Neutr Abs (ANC) 3.96 1.70 - [facility] 6.10 [facility] x10(3)/[facility] LABORATORY Lymphocytes % 16.3 % [facility] LABOR[facility]ORY Lymphocytes Abs 0.9 0.9 - 3.2 [facility] x10(3)/[facility] LABORATORY Monocytes % 10.0 % [facility] LABOR[facility]ORY Monocyte Abs 0.6 0.3 - 0.9 [facility] x10(3)/[facility] LABORATORY Eosinophils % 0.5 % [facility] LABORATORY Eosinophils Abs 0.0 0.0 - 0.4 [facility] x10(3)/[facility] LABORATORY Basophils % 0.5 % [facility] LABORATORY Basophils Abs 0.0 0.0 - 0.1 [facility] x10(3)/[facility] LABORATORY Immature Gran % 0.90 % [facility]ORY Comment: Immature granulocytes(IG's)percentage an d absolute count will include metamyelocytes, myelocytes, and promyelo cytes. Blood smears from CBCs yielding IG's will be scanned manually for concor dance. If this scan disagrees with the automated IG or if promyelocytes are not ed, a manual differential will be performed. Melisa Gran Abs 0.05 (H) 0.00 - 0.04 x10(3)/[facility] LABORATORY Specimen Anatomical Collection Method Collection Time Receive d Time (Source) Location / / Volume Laterality Blood 01/30/2022 2:12 PM 2 2:37 EDT PM EDT Resulting Agency Comment Spec In Lab Eddi Elizabeth Jr., MD HEMATOLOGY ORDERABLES Performing Organization Address City/State/[place] [address] (ABNORMAL) Hemogram (01/30/2022 2:12 PM EDT) Analysis Performed At Patho logist Time Signature WBC 5.5 4.0 - 9.5 [facility] x10(3)/[facility] LABORATORY RBC 4.30 (L) 4.58 - [facility] 5.54 [facility] x10(6)/[facility] LABORATORY Hemoglobin 12.7 (L) 13.7 - [facility] 16.[facility] g/dL [facility] LABORATORY Hematocrit 39.4 (L) 40.5 - [facility] 48.5 % [facility] LABORATORY MCV 91.6 82.9 - [facility] 93.1 [facility] LABORATORY MCH 29.5 27.5 - BARBARA RYAN 32.1 pg [facility] LABORATORY MCHC 32.2 32.0 - [facility] 35.7 g/dL [facility] LABORATORY Platelets 172 145 - 357 [facility] x10(3)/[facility] LABORATORY RDWSD 54.5 (H) 36.0 - [facility] 45.0 [facility] LABORATORY RDWCV 16.4 (H) 11.4 - [facility] 13.8 % [facility] LABORATORY MPV 9.2 7.6 - 12.9 [facility] LABORATORY nRBC % Auto 0.0 % [facility] LABORATORY nRBC Abs Auto 0.000 0.000 - [facility] 0.000 [facility] x10(3)/[facility] LABORATORY Specimen Anatomical Collection Method Collection Time Receive d Time (Source) Location / / Volume Laterality Blood 01/30/2022 2:12 PM 2 2:37 EDT PM EDT Resulting Agency Comment Spec In Lab Eddi Elizabeth Jr., MD HEMATOLOGY ORDERABLES Performing Organization Address City/State/[place] [address] (ABNORMAL) Basic Metabolic Panel (non-fasting) (01/30/2022 2:12 PM EDT) P athologist Signature Glucose Lvl 163 65 - 199 [facility] mg/dL [facility] LABORATORY Comment: Diabetes: >=200 mg/dL plus symp toms BUN 30 (H) 10 - 20 mg/dL [facility] LABORATORY Creatinine 1.47 0.80 - 1.50 mg/dL [facility] OCK [facility] LABORATORY Sodium 140 135 - 145 mmol/L [...] Organization Address City/State/[place] [address] POCT Glucose (01/30/2022 1:41 PM EDT) athologist Signature POC Glucose 148 65 - 199 [facility] mg/dL [facility] LABORATORY Comment: Supplemental ranges: <140 mg/dL before meals <180 mg/dL all other times of the day Specimen Anatomical Collection Method Collection Time Receive d Time (Source) Location / / Volume Laterality Blood 01/30/2022 1:41 PM 1:41 EDT PM EDT Vitaliy Sandra Nobles MD POINT OF CARE TEST ORDERABLE S Performing Organization Address City/[facility]/ZIP Code Phon e Number [address] POCT Glucose (01/30/2022 10:48 AM EDT) P athologist Signature POC Glucose 193 65 - 199 [facility] mg/dL [facility] LABORATORY Comment: Supplemental ranges: <140 mg/dL before meals <180 mg/dL all other times of the day Specimen Anatomical Collection Method Collection Time Receive d Time (Source) Location / / Volume Laterality Blood 01/30/2022 10:48 01/30/2022 AM EDT 10:48 AM EDT Vitaliy Sandra Nobles MD POINT OF CARE TEST ORDERABLE S Performing Organization Address [facility] [place] [address] EKG 12 Lead (01/30/2022 10:33 AM EDT) Component Value Ref Range Test Analysis Performed Pathologis t Method Time At Signature Ventricular rate 64 BPM MUSE SYSTEM Atrial Rate 64 BPM MUSE SYSTEM P-R Interval 162 ms MUSE SYSTEM QRS Duration 94 ms MUSE SYSTEM Q-T Interval 422 ms MUSE SYSTEM QTC Calculated 435 ms MUSE SYSTEM (Bezet) Calculated P [place] 41 degrees MUSE SYSTEM Calculated R [place] -27 degrees MUSE SYSTEM Calculated T [place] 104 degrees MUSE SYSTEM INTERPRETATION Normal sinus rhythm MUSE SYSTEM Anterolateral infarct (cited on or before 09-DEC-2021) Abnormal ECG When compared with ECG of 10-DEC-2021 11:17, No significant change was found Confirmed by Gary Perez ([id number]) on 01/30/2022 5:57:5 2 PM Specimen Anatomical Collection Method Collection Time Receive d Time (Source) Location / / Volume Laterality 01/30/2022 10:33 01/30/2022 5:57 AM EDT PM EDT Vitaliy Sandra Nobles MD ECG ORDERABLES Performing Organization Address City/[facility]/ZIP Code Phon e Number MUSE SYSTEM CARDIAC CATHETERIZATION (01/30/2022 10:16 AM EDT) Anatomical Region Laterality Modality Other Specimen (Source) Anatomical Location Collection Method / Collectio n Time Received Time / Laterality Volume Narrative 01/30/2022 2:09 PM EDT ?[facility] ? Cardiac Cathete rization/Intervention Report ? Patient Name: Kushal, Don E. ? Procedure Date: 01/30/2022 ? A #: [id number] ? Primary Physician: Nobles, Vitaliy P ? Case #: [id number] ? File Name: [id number] ? Catheterization Order Number: [id number] ? [facility] ? Final Report [place], [place] ? Patient Name: ? Don E. Stewa rt ? ID#: ?[id number] ? : ?1945 ? Procedure Date: ? [...] ?designated as ASA Class III. Th e [facility] clinical frailty scale is 5: [...] procedure was Urgent. The indication for ?the drop crew laborer visit is stable kn own CAD. [...] guiding catheter an d a 3.5 Fr [place] [facility] [place] [facility] ??20 Mhz ?using Manual pullback. ??Imagin [...] ?? A premounted 2.00 x 26 mm [place] (TUCKER) ? was deployed wi a maximum [...] Wedelivered along 2.0 x 26 mm [place] ? TUCKER stent and p ositioned [...] dose administered prior to arrival in the drop crew laborer. ?Recommended anti-platelet/anti- thrombotic regimen: ?Continue aspirin [...] ?modification of this regimen. C [facility] Interventional Cardiology for ?questions. ?The 1 year [...] using a 2.0 x 26 mm [place] TUCKER stent. ?This completes the revasculariz [...] Procedure Note Vitaliy Nobles MD - 03/06/2022 [facility] Cardiac Catheterization/Intervention Re port Patient Name: Don Fatima Procedure Date: 01/30/2022 A #: [id number] Primary Physician: Vitaliy Nobles Case #: [id number] File Name: [id number] Catheterization Order Number: [id number] [facility] Final Report [place], [place] Patient Name: Don Fatima ID#: [...] e was Urgent. The indication for the drop crew laborer visit is stable known CAD. Chest [...] 1.5 guiding catheter and a 3.5 Fr [place] [place] [facility] 20 Mhz using Manual pullback. Imaging [...] atmospheres. A premounted 2.00 x 26 mm [place] (TUCKER) was deployed with a maximum inflation [...] along 2. 0 x 26 mm [place] TUCKER stent and positioned it at [...] administered prior t o arrival in the drop crew laborer. Recommended anti-platelet/anti-thrombot ic regimen: Continue aspirin [...] require modification of this regimen. Consult D [facility] Interventional [...] using a 2.0 x 26 mm [place] TUCKER stent. This completes the revascularization of [...] Glucose 212 (H) 65 - [address] [facility] mg/dL [facility]ORY Comment: Supplemental ranges: <140 mg/dL before meals <180 mg/dL all other times of the day Specimen Anatomical Collection Method Collection Time Receive d Time (Source) Location / / Volume Laterality Blood 01/30/2022 9:04 AM 2 9:04 EDT AM EDT Vitaliy Nobles MD POINT OF CARE TEST ORDERABLE S Performing Organization Address City/State/ZIP [place] [address] (ABNORMAL) POCT Glucose (01/30/2022 8:10 AM EDT) athologist Signature POC Glucose 224 (H) 65 - [address] [facility] mg/dL [facility] LAB[facility]ORY Comment: Supplemental ranges: <140 mg/dL before meals <180 mg/dL all other times of the day Specimen Anatomical Collection Method Collection Time Receive d Time (Source) Location / / Volume Laterality Blood 01/30/2022 8:10 AM 2 8:10 EDT AM EDT Vitaliy Nobles MD POINT OF CARE TEST ORDERABLE S Performing Organization Address City/State/ZIP [place] [address] documented in this encounter Visit Diagnoses Diagnosis ASCVD (arteriosclerotic cardiovascular d isease) Unspecified cardiovascular disease Atherosclerosis of eastern shoshone coronary arter y of eastern shoshone 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 ASHD (arteriosclerotic heart disease) Coronary atherosclerosis of unspecified type of vessel, eastern sh[place]one or graft ASCVD (arteriosclerotic cardiovascular d isease) Unspecified cardiovascular disease documented in this encounter Admitting Diagnoses Diagnosis CAD (coronary artery disease) Coronary atherosclerosis of unspecified type of vessel, [place] or graft documented in this encounter Administered [...] Procedure), Routine niCARdipine (Cardene) (100 mcg/mL) dilution (SEMICONDUCTOR DEVELOPMENT TECHNICIAN) (CANCELED ) 0927 (Given - Provider: [...] (Intra-Procedure) documented in this encounter Care Teams Parking Meter Installer Relationship Specialty Start Date End Date Lovely Vicente MD PCP - General 04/16/[address] [place] [address] documented as of this encounter
--- OUTSIDE RECORDS SUMMARY | 2022-04-08 08:46 | XMS_ITS | Encounter Summary ---
:1945 Author Organization [facility] [place] [address] Care Team Providers Name Role Phone Lovely Vicente MD Primary Care Provider Encounter Details Date Type Department Care Team Description 12/12/2021 Telephone Cardiology [place] [facility] [place] [phone] Social History Tobacco Use Types Packs/Day [...] - 12/12/2021 11:36 AM EDT RTC to [employer] regarding pharmacists questions as to whether the [...] MD [facility] [address] [place] [address] (Wo rk) 05/28/2022 Laboratory Appointment Lab 05/28/2022 Office Visit Cardiology Zulma Dolan MD [facility] [place] [address] Liz Poole PA [facility] Cardiology [place] [address] 06/10/2022 Office Visit Dermatology Laura Scherer MD [facility] DR [address]MAT [place], [place] 0[address] (Wo rk) documented as of this encounter Visit Diagnoses Not on filedocumented in this encounter Care Teams Manager Desktop Relationship Specialty Start Date End Date Lovely Vicente MD PCP - General 04/16/[address] [place] [address] documented as of this encounter
--- OUTSIDE RECORDS SUMMARY | 2022-04-08 08:46 | XMS_ITS | Encounter Summary ---
:1945 Author Organization [facility] [place] [address] Care Team Providers Name Role Phone Lovely Vicente MD Primary Care Provider Reason for Visit Reason Onset Date Comments Follow-up 02/23/2022 Medication adjustmen t and new med Encounter Details Date Type Department Care Team Description 02/23/2022 Telephone Cardiology at [facility] Martha Comer, Follow-up ([facility] RN adjustbrandon t and new med) [place] [phone] Social History Tobacco Use Types Packs/Day Years Used Date Former Smoker Cigarettes 3 5 Quit: 07/26/18 69 Smokeless Tobacco: Never Used Alcohol Use Standard Drinks/Week Comments No 0 (1 standard drink = 0.6 oz pure alcoho l) Sex Assigned at Date Recorded Not on file documented as of this encounter Miscellaneous Notes Telephone Encounter - Marhta Comer RN - 02/24/2022 4:47 PM EDT Call placed to pt & with the following response from STEPHANIE Poole: Yes, please repeat. ??I placed the order for BMP and sent to [facility]. will call [facility] to make an appointment for next Wednesday03/04/22. [...] tablet) daily. She will correct his pill estate planner to the new dose. Will need to check with STEPHANIE Poole about repeat BMP to recheck K+ level. If yes he will get the test done at [facility]. They are aware that he will need to make an appt at [facility] to get the test done. Entresto: states [...] if he qualifies for assistance from the [employer]. She is thankful for the assistance, as he is taking insulin that is very expensive too. Instructed to call this account underwriter, if he does qualify for assistance from [employer] and that he has gotten the medication [...] Cardiology Zulma Dolan MD [facility] [place], [place] [address] (Wo rk) 05/28/2022 Laboratory Appointment Lab 05/28/2022 Office Visit Cardiology Zulma Dolan MD [facility] [place] [address] Liz Poole PA [facility] [place] [address] 06/10/2022 Office Visit Dermatology Laura Scherer MD [facility] DR [address] GR[address]DERMAT [place], [place] 0[address] (Wo rk) documented as of this encounter Visit Diagnoses Not on filedocumented in this encounter Care Teams Counselor Dormitory Relationship Specialty Start Date End Date Lovely Vicente MD PCP - General 04/16/[address] [place] [address] documented as of this encounter
--- OUTSIDE RECORDS SUMMARY | 2022-04-08 08:46 | XMS_ITS | Encounter Summary ---
:1945 Author Organization [facility] [place] [address] Care Team Providers Name Role Phone Lovely Vicente MD Primary Care Provider Reason for Referral Diagnostic Test (Routine) - New Request Specialty Diagnoses / Procedures Referred By Contact Refer red To Contact Cardiology Diagnoses Chronic systolic heart failure Liz Carrera PA [facility] Non-Inv Card Lab Procedures Echocardiogram Transthoracic [facility] [place] [address] [place] [address] Fax: Referral ID Status Reason Start Expiration Visits Visits Date Date Requested Authorized [id number] New Request Specialty 02/19/2022 02/19/2023 1 1 Service Requested Encounter Details Date Type Department Care Team Description 02/19/2022 Office Visit Cardiology at [facility] Liz Carrera, Chronic systolic heart [facility] [place] [address] Cardiology Dept [phone] [place], [place] [address] Social History Tobacco Use Types [...] As per DC Summary - Admitted to [facility] on 12/08/21, transferred from [facility], respiratory distress with hypoxia 86% [...] mg PO daily in place of Lasix. [place] is new for him and he will [...] Antiplatelet (DAPT) Recommendations above ? TTE from [facility] 12/08/21 ?? 07/28/2019 Echocardiogram: SUMMARY: [...] 12.5 mg daily 6. Post-op atrial fibrillation [id number] (CHF, HTN, DM, vascular disease, thromboembolism) [...] Cardiology Zulma Dolan MD [facility] [place], [place] 0[address] (Wo rk) 05/28/2022 Laboratory Appointment Lab 05/28/2022 Office Visit Cardiology Zulma Dolan MD [place] [address] Liz Carrera PA [facility] [place] [address] 06/10/2022 Office Visit Dermatology Laura Scherer MD [facility] DR [address] GR-DERMAT [facility] [place] [address] (Wo rk) Scheduled Orders Name Type Priority Associated Order Schedule Diagnoses Echocardiogram Echocardiography Routine Chronic systolic Expec vlad: Transthoracic heart failure 05/22/2022 (Approximate), Expires: 11/21/2022 documented as of this encounter Results (ABNORMAL) Basic Metabolic Panel (non-fasting) (02/19/2022 8:06 AM EDT) P athologist Signature Glucose Lvl 139 65 - 199 [facility] mg/dL [facility] Comment: Diabetes: >=200 mg/dL plus symp toms BUN 31 (H) 10 - 20 mg/dL [facility] LABOR[facility]ORY Creatinine 1.53 (H) 0.80 - 1.50 mg/dL [place] [...] Organization Address City/State/ZIP Code Phon e Number [place] [id number] LAB[address] (ABNORMAL) pro-Brain Natriuretic Peptide (02/19/2022 8:06 AM EDT) P athologist Signature ProBNP 984 (H) <=449 pg/mL [facility] LABORATORY Specimen Anatomical Collection Method Collection Time Receive d Time (Source) Location / / Volume Laterality Blood 02/19/2022 8:06 AM 8:09 EDT AM EDT Resulting Agency Comment Spec In Lab Zulma Plunkett MD CHEMISTRY ORDERABLES Performing Organization Address City/[facility]/[place] [address] documented in this encounter Visit Diagnoses Diagnosis Chronic systolic heart failure documented in this encounter Care Teams Greens Planter Relationship Specialty Start Date End Date Lovely Vicente MD PCP - General 04/16/[address] [place] [address] documented as of this encounter
--- OUTSIDE RECORDS SUMMARY | 2022-04-08 08:46 | XMS_ITS | Encounter Summary ---
:1945 Author Organization [facility] [place] [address] Care Team Providers Name Role Phone Lovely Vicente MD Primary Care Provider Encounter Details Date Type Department Care Team Description 02/23/2022 Refill Cardiology at [facility] [place] Liz Poole PA [facility] [place] [address] Cardiology Dept [phone] [place], [place] [address] (Wo rk) Social History Tobacco [...] Oneill RPH Transfer of Services Don Fatima [address] [place] [address] [place] [id number] Telephone Information: Work Phone Not on file. The [facility] has received a prescription for Entresto for patient Mr. Don Fatima 76 y.o. (1945). The patient requests the prescription to be filled with [facility]. We spoke to patient to notify of this change and to provide number to reach the new filling pharmacy. A copyof patient's medication profile was offered to the accepting pharmacy. Additional instructions provided to patient about transfer: no The patient has been advised to call the [facility] at [phone] with any questionsor concerns on this referral. Thank you, Oxana Oneill RPH 02/23/22 4:26 PM Patient understands no changes to current drug regimen were made at this time. documented in this encounter Plan of Treatment Upcoming Encounters Date Type Specialty Care Team Description 05/28/2022 Appointment Cardiology Zulma Dolan MD [facility] [place], [place] [address] (Wo rk) 05/28/2022 Laboratory Appointment Lab 05/28/2022 Office Visit Cardiology Zulma Dolan MD [facility] [place] [address] Liz Poole PA [facility] [place] [address] 06/10/2022 Office Visit Dermatology Laura Scherer MD [facility] [address] [place], [place] [address] (Wo rk) documented as of this encounter Visit Diagnoses Not on filedocumented in this encounter Care Teams Polysomnograph Tech Relationship Specialty Start Date End Date Lovely Vicente MD PCP - General 04/16/[address] [place] [address] documented as of this encounter
--- OUTSIDE RECORDS SUMMARY | 2022-04-08 08:46 | XMS_ITS | Encounter Summary ---
:1945 Author Organization [facility] [place] [address] Care Team Providers Name Role Phone Lovely Vicente MD Primary Care Provider Encounter Details Date Type Department Care Team Description 12/24/2021 Orders Only Hat Block Bench Hand Zulma Finch ASCVD (art eriosclerotic [facility] cardiovascular disease) [facility] [place] [address] [place], [place] [phone] (Work) [phone] Social History Tobacco Use Types Packs/Day Years [...] Zulma Dolan MD [facility] [address] [place] [address] (Wo rk) 05/28/2022 Laboratory Appointment Lab 05/28/2022 Office Visit Cardiology Zulma Dolan MD [facility] [place] [address] Liz Poole PA [facility] [place] [address] 06/10/2022 Office Visit Dermatology Laura Scherer MD [facility] [address] [place], [place] [address] (Wo rk) documented as of this encounter Visit Diagnoses Diagnosis ASCVD (arteriosclerotic cardiovascular d isease) Unspecified cardiovascular disease documented in this encounter Care Teams Business Operations Specialist Relationship Specialty Start Date End Date Lovely Vicente MD PCP - General 04/16/[address] [place] [address] documented as of this encounter
--- OUTSIDE RECORDS SUMMARY | 2022-04-08 08:46 | XMS_ITS | Encounter Summary ---
:1945 Author Organization [facility] [place] [address] Care Team Providers Name Role Phone Lovely Vicente MD Primary Care Provider Reason for Visit Reason Onset Date Comments Advice Only 01/28/2022 Encounter Details Date Type Department Care Team Description 01/28/2022 Telephone Cardiology [place] [facility] [place] Angela, strategic [place] [address] Social History Tobacco Use Types Packs/Day [...] Fatima assists patient with medications. Number for medical lab specialist scheduling given and she will call them to verify this information Meds reviewed. As per our form from medical lab specialist Eliquis hold for 48 hours [...] Zulma Dolan MD [facility] [address] [place], [place] [address] (Wo rk) 05/28/2022 Laboratory Appointment Lab 05/28/2022 Office Visit Cardiology Zulma Dolan MD [facility] [place] [address] Liz Poole PA [facility] [place] [address] 06/10/2022 Office Visit Dermatology Laura Scherer MD [facility] [address] [place], [place] [address] (Wo rk) documented as of this encounter Visit Diagnoses Not on filedocumented in this encounter Care Teams Power Truck Driver Relationship Specialty Start Date End Date Lovely Vicente MD PCP - General 04/16/[address] [place] [address] documented as of this encounter
--- OUTSIDE RECORDS SUMMARY | 2022-04-08 08:46 | XMS_ITS | Encounter Summary ---
:1945 [place] [address] Care Team Providers Name Role Phone Lovely Vicente MD Primary Care Provider Encounter Details Date Type Department Care Team Description 12/25/2021 Office Visit [place] [facility] [place] Poole, Chronic systolic heart [facility] [place] [address] Cardiology Dept [phone] [place], [place] [address] Social History Tobacco Use Types [...] [place], [facility] [...] mg PO daily in place of Lasix. [place] is new for him and he will [...] regurgitation present. 07/07/2019 - 07/21/2019 Zio Patch Instrumentation Controls Engineer The patient had a minimum heart [...] hyperkalemia 4.9 today 6. Post-op atrial fibrillation [id number] (CHF, HTN, DM, vascular disease, thromboembolism) Eliquis 7. PAD 08/06/2017: Right 1st, 2nd, 3rd toe amputation 08/11/2017: Left??femoral arterial access, RLE??angiogram, Balloon angioplasty of R PT 10/25/2017: right popliteal-pedal bypass at [facility] 8. Hypothyrodism S/p thyroidectomy for goiter Levothyroxine ?? Plan: 1 month follow up with labs Liz Poole PA-C 12/25/2021 documented in this encounter Plan of Treatment Upcoming Encounters Date Type Specialty Care Team Description 05/28/2022 Appointment Cardiology Zulma Dolan MD [facility] [address] [place], [place] [address] (Wo rk) 05/28/2022 Laboratory Appointment Lab 05/28/2022 Office Visit Cardiology Zulma Dolan MD [facility] [place] [address] Liz Poole PA [facility] [place] [address] 06/10/2022 Office Visit Dermatology Laura Scherer MD [facility] ER DR [address] [place], [place] [address] (Mikayla alcaraz) documented as of this encounter Results (ABNORMAL) pro-Brain Natriuretic Peptide (12/25/2021 7:46 AM EDT) athologist Signature ProBNP 1,380 (H) <=[address] [facility] [address] [facility] pg[facility]mL [facility] Specimen Anatomical Collection Method Collection Time Receive d Time (Source) Location / / Volume Laterality Blood 12/25/2021 7:46 AM 8:01 EDT AM EDT Resulting Agency Comment Spec In Lab Zulma Plunkett MD CHEMISTRY ORDERABLES Performing Organization Address City/State/[place] [address] (ABNORMAL) Basic Metabolic Panel (non-fasting) (12/25/2021 7:46 AM EDT) athologist Signature Glucose Lvl 272 (H) 65 - 199 [facility] mg/dL [facility] Comment: Diabetes: >=200 mg/dL plus symp toms BUN 62 (H) 10 - 20 mg/dL [facility] Creatinine 1.81 (H) 0.80 - 1.50 mg/dL [facility] [place] [...] Chloride 95 (L) 98 - 107 mmol/L [facility] CO2 28 22 - 31 mmol/L [facility] Anion Gap 11 5 - 15 mmol/L [facility] Calcium 9.4 8.5 - 10.5 mg/dL [facility] Estimated GFR 36 (L) >=60 mL/min/1.73 m?? [facility] [...] Address City/State/[place] [address] documented in this encounter Visit Diagnoses Diagnosis Chronic systolic heart failure documented in this encounter Care Teams Gas Well Drilling Manager Relationship Specialty Start Date End Date Lovely Vicente MD PCP - General 04/16/[address] [place] [address] documented as of this encounter
--- OUTSIDE RECORDS SUMMARY | 2022-04-08 08:46 | XMS_ITS | Encounter Summary ---
:1945 Author Organization [facility] Address [facility] [place] [address] Care Team Providers Name Role Phone Lovely Vicente MD Primary Care Provider Reason for Visit Auth/Cert Specialty Diagnoses / Procedures Referred By Contact Refer red To Contact Diagnoses ASCVD (arteriosclerotic cardiovascular disease) [I25.10] Vitaliy Nobles MD [facility] Procedures PRO PERC TRLUML CORONARY STENT W/ANGIO ONE ART/BRANCH CARDIAC CATHETERIZATION STENT PLACEMENT-SINGLE MAJOR CORONARY ARTERY OR BRANCH [facility] [place] [address] Referral ID Status Reason Start Date Expiration Date Visits Requ ested Visits Authorized [id number] 1 1 Encounter Details Date Type Department Care Team Description 01/30/2022 Surgery Computer Systems Information Director Asa Coulter MD CARDIAC CATHETERIZATION [facility] [place] [address] [place] [address] [phone] (Wo rk) Social History Tobacco Use Types [...] and Clopidogrel. Please follow up with your otr driver in the next 4-6 weeks. We have made a referral to cardiac rehab. Please see the attached instructions regarding care to your right wrist access site. AttachmentsThe following attachments cannot be sent through Care Everywhere. Coronary Angiogram: Post-op (Burundian)documented in this encounter Medications at Time of [...] Murray RN - 01/30/2022 4:54 PM EDT [facility] Short Stay Unit Discharge Note [...] recent PCI presenting for staged PCI to [facility]. The pt states he has [...] recent PCI presenting for staged PCI to [facility]. The indications, expected benefits, and [...] from the original note were not included. [facility] [place] [address] CORONARY ANGIOGRAM AND PERCUTANEOUS CORONARY INTERVENTION REPORT Patient: Don Fatima : 1945 MR number: [id number] Date of Service: 01/30/2022 Crna: Vitaliy Nobles MD Fellow: KEYON Elizabeth INDICATION: [...] a long 2.0 x 26 mm HARDEEP Alfalfa TUCKER stent and positioned it at the [...] using a 2.0 x 26 mm HARDEEP Alfalfa TUCKER stent. This completes the revascularization ofall [...] Dolan MD [facility] er [address] [place] [address] (Wo rk) 05/28/2022 Laboratory Appointment Lab 05/28/2022 Office Visit Cardiology Zulma Dolan MD [facility] [place] [address] Liz Poole PA [facility] [place] [address] 06/10/2022 Office Visit Dermatology Laura Scherer MD [facility] ER DR [address] [facility] [place] [address] (Wo rk) Scheduled Orders Name Type [...] LABORATORY Neutr Abs (ANC) 3.96 1.70 - [facility] 6.10 [facility] x10(3)/[facility]ORY Lymphocytes % 16.3 % [facility] Lymphocytes Abs 0.9 0.9 - 3.2 [facility] x10(3)/[facility] LABORATORY Monocytes % 10.0 % [facility] Monocyte Abs 0.6 0.3 - 0.9 [facility] x10(3)/[facility] LABORATORY Eosinophils % 0.5 % [facility]ORY Eosinophils Abs 0.0 0.0 - 0.4 [facility] x10(3)/[facility] LABORATORY Basophils % 0.5 % [facility] LABORATORY Basophils Abs 0.0 0.0 - 0.1 [facility] x10(3)/[facility] LABORATORY Immature Gran % 0.90 [...] Gran Abs 0.05 (H) 0.00 - 0.04 x10(3)/[facility] LABORATORY Specimen Anatomical Collection Method Collection Time Receive d Time (Source) Location / / Volume Laterality Blood 01/30/2022 2:12 PM 2 2:37 EDT PM EDT Resulting Agency Comment Spec In Lab Eddi Elizabeth Jr., MD HEMATOLOGY ORDERABLES Performing Organization Address City/State/[place] [address] (ABNORMAL) Hemogram (01/30/2022 2:12 PM EDT) Analysis Performed At Patho logist Time Signature WBC 5.5 4.0 - 9.5 [facility] x10(3)/[facility] LABORATORY RBC 4.30 (L) 4.58 - [facility] 5.54 [facility] x10(6)/[facility] LABORATORY Hemoglobin 12.7 (L) 13.7 - [place] 16.5 g/dL [facility] Hematocrit 39.4 (L) 40.5 - [place] 48.5 % [facility] MCV 91.6 82.9 - [place] 93.1 [facility] LABORATORY MCH 29.5 27.5 - [place] 32.1 pg [facility] MCHC 32.2 32.0 - [place] 35.7 g/dL [facility] Platelets 172 145 - 357 [place] x10(3)/[facility] LABORATORY RDWSD 54.5 (H) 36.0 - [place] 45.0 [facility] LABORATORY RDWCV 16.4 (H) 11.4 - [place] 13.8 % [facility] LABORATORY MPV 9.2 7.6 - 12.9 [place] [facility] LABORATORY nRBC % Auto 0.0 % [facility] LABORATORY nRBC Abs Auto 0.000 0.000 - [place] 0.000 [facility] x10(3)/[facility] LABORATORY Specimen Anatomical Collection Method Collection Time Receive d Time (Source) Location / / Volume Laterality Blood 01/30/2022 2:12 PM 2 2:37 EDT PM EDT Resulting Agency Comment Spec In Lab Eddi Elizabeth Jr., MD HEMATOLOGY ORDERABLES Performing Organization Address City/State/Z[place] [address] (ABNORMAL) Basic Metabolic Panel (non-fasting) (01/30/2022 2:12 PM EDT) P athologist Signature Glucose Lvl 163 65 - 199 [facility] mg[facility]dL [facility] Comment: Diabetes: [...] Organization Address City/State/[place] [address] POCT Glucose (01/30/2022 1:41 PM EDT) P athologist Signature POC Glucose 148 65 - 199 [facility] mg/dL [facility] Comment: Supplemental ranges: <140 mg/dL before meals <180 mg/dL all other times of the day Specimen Anatomical Collection Method Collection Time Receive d Time (Source) Location / / Volume Laterality Blood 01/30/2022 1:41 PM 2 1:41 EDT PM EDT Vitaliy Nobles MD POINT OF CARE TEST ORDERABLE S Performing Organization Address City/State/ZIP Code Phon e Number [address] POCT Glucose (01/30/2022 10:48 AM EDT) P athologist Signature POC Glucose 193 65 - 199 [place] mg/dL [facility] Comment: Supplemental ranges: <140 mg/dL before meals <180 mg/dL all other times of the day Specimen Anatomical Collection Method Collection Time Receive d Time (Source) Location / / Volume Laterality Blood 01/30/2022 10:48 01/30/2022 AM EDT 10:48 AM EDT Vitaliy Sandra Nobles MD POINT OF CARE TEST ORDERABLE S Performing Organization Address [facility]/ZIP Code Phon e Number [address] EKG 12 Lead (01/30/2022 10:33 AM EDT) Component Value Ref Range Test Analysis Performed Pathologis t Method Time At Signature Ventricular rate 64 BPM MUSE SYSTEM Atrial Rate 64 BPM MUSE SYSTEM P-R Interval 162 ms MUSE SYSTEM QRS Duration 94 ms MUSE SYSTEM Q-T Interval 422 ms MUSE SYSTEM QTC Calculated 435 ms MUSE SYSTEM (Bezet) Calculated P [place] 41 degrees MUSE SYSTEM Calculated R [place] -27 degrees MUSE SYSTEM Calculated T [place] 104 degrees MUSE SYSTEM INTERPRETATION Normal sinus rhythm MUSE SYSTEM Anterolateral infarct (cited on or before 09-DEC-2021) Abnormal ECG When compared with ECG of 10-DEC-2021 11:17, No significant change was found Confirmed by Gary Perez ([id number]) on 01/30/2022 5:57:5 2 PM Specimen Anatomical Collection Method Collection Time Receive d Time (Source) Location / / Volume Laterality 01/30/2022 10:33 01/30/2022 5:57 AM EDT PM EDT Vitaliy Sandra Nobles MD ECG ORDERABLES Performing Organization Address City/[facility]/ZIP Code Phon e Number MUSE SYSTEM CARDIAC CATHETERIZATION (01/30/2022 10:16 AM EDT) Anatomical Region Laterality Modality Other Specimen (Source) Anatomical Location Collection Method / Collectio n Time Received Time / Laterality Volume Narrative 01/30/2022 2:09 PM EDT ?[facility] ? Cardiac Cathete rization/Intervention Report ? Patient Name: Don Fatima. ? Procedure Date: 01/30/2022 ? A #: [id number] ? Primary Physician: Nobles, Vitaliy P ? Case #: [id number] ? File Name: [id number] ? Catheterization Order Number: [id number] ? [facility] ?Computer Systems Information Director [facility] ? Final Report [place], [place] ? Patient Name: ? Don E. Stewa rt ? ID#: ?[id number] ? : ?1945 ? Procedure Date: ? [...] was Urgent. The indication for ?the label fuser tender visit is stable kn own CAD. Chest [...] guiding catheter an d a 3.5 Fr [place] [facility] [place] [address] ??20 Mhz ?using Manual pullback. ??Imagin [...] A premounted 2.00 x 26 mm Hardeep Alfalfa (TUCKER) ? was deployed wi a maximum [...] Wedelivered along 2.0 x 26 mm HARDEEP Alfalfa ? TUCKER stent and p ositioned it [...] administered prior to arrival in the label fuser tender. ?Recommended anti-platelet/anti- thrombotic regimen: ?Continue aspirin 81 [...] require ?modification of this regimen. C onsult [facility] Interventional Cardiology for ?questions. ?The 1 year [...] using a 2.0 x 26 mm HARDEEP Alfalfa TUCKER stent. ?This completes the revasculariz ation [...] Procedure Note Vitaliy Nobles MD - 03/06/2022 [facility] Cardiac Catheterization/Intervention Re port Patient Name: Don Fatima Procedure Date: 01/30/2022 A #: [id number] Primary Physician: Vitaliy Nobles Case #: [id number] File Name: [id number] Catheterization Order Number: [id number] [facility] Computer Systems Information [facility] Final Report [place], [place] Patient Name: Don Fatima ID#: [...] was Urgent. The indication for the label fuser tender visit is stable known CAD. Chest pain [...] 1.5 guiding catheter and a 3.5 Fr [place] [facility] [place] [address] 20 Mhz using Manual pullback. Imaging [...] A premounted 2.00 x 26 mm Hardeep Alfalfa (TUCKER) was deployed with a maximum inflation [...] along 2. 0 x 26 mm HARDEEP Alfalfa TUCKER stent and positioned it at the [...] prior t o arrival in the label fuser tender. Recommended anti-platelet/anti-thrombot ic regimen: Continue aspirin 81 [...] modification of this regimen. Consult [facility] [place] for questions. The [...] using a 2.0 x 26 mm HARDEEP Alfalfa TUCKER stent. This completes the revascularization of [...] POC Glucose 212 (H) 65 - 199 [facility] mg/dL [facility] Comment: Supplemental ranges: <140 mg/dL before meals <180 mg/dL all other times of the day Specimen Anatomical Collection Method Collection Time Receive d Time (Source) Location / / Volume Laterality Blood 01/30/2022 9:04 AM 2 9:04 EDT AM EDT Vitaliy Nobles MD POINT OF CARE TEST ORDERABLE S Performing Organization Address City/State/ZIP [place] [address] (ABNORMAL) POCT Glucose (01/30/2022 8:10 AM EDT) P athologist Signature POC Glucose 224 (H) 65 - 199 [facility] mg/dL [facility] Comment: Supplemental ranges: <140 mg/dL before meals <180 mg/dL all other times of the day Specimen Anatomical Collection Method Collection Time Receive d Time (Source) Location / / Volume Laterality Blood 01/30/2022 8:10 AM 2 8:10 EDT AM EDT Vitaliy Nobles MD POINT OF CARE TEST ORDERABLE S Performing Organization Address City/State/ZIP [place] [address] documented in this encounter Visit Diagnoses Diagnosis ASCVD (arteriosclerotic cardiovascular d isease) Unspecified cardiovascular disease 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 or graft ASCVD (arteriosclerotic cardiovascular d isease) Unspecified cardiovascular disease documented in this encounter Admitting Diagnoses Diagnosis CAD (coronary artery disease) Coronary atherosclerosis of unspecified type of vessel, [facility] or graft documented in this encounter [...] Given 02/2022 10:11 AM EDT 100 mcg (HYDRAULIC DREDGE OPERATOR) ONCE PRN, Starting on Wed01/30/22 at [...] Procedure), Routine niCARdipine (Cardene) (100 mcg/mL) dilution (HYDRAULIC DREDGE OPERATOR) (CANCELED ) 0927 (Given - Provider: [...] (Intra-Procedure) documented in this encounter Care Teams Addiction Social Worker Relationship Specialty Start Date End Date Loveyl Vicente MD PCP - General 04/16/[address] [place] [address] documented as of this encounter
--- OUTSIDE RECORDS SUMMARY | 2022-04-08 08:46 | XMS_ITS | Encounter Summary ---
:1945 Author Organization [facility] [place] [address] Care Team Providers Name Role Phone Lovely Vicente MD Primary Care Provider Encounter Details Date Type Department Care Team Description 12/25/2021 Laboratory Appointment Lab 3L [facility] [place] [id number] Social History Tobacco Use Types Packs/Day Years [...] Dolan MD [facility] [place] [address] (Wo rk) 05/28/2022 Laboratory Appointment Lab 05/28/2022 Office Visit Cardiology Zulma Dolan MD [facility] [place] [address] Liz Poole PA [facility] [place] [address] 06/10/2022 Office Visit Dermatology Laura Scherer MD [facility] DR [address] [place] [address] (Wo rk) documented as of this encounter [...] (ABNORMAL) Differential, Automated (12/25/2021 7:46 AM EDT) [facility] gist Method Time Signature Neutrophils % 82.6 % [facility] LABOR[facility]ORY Neutr Abs (ANC) 9.37 (H) 1.70 - [facility] 6.10 [facility] x10(3)/[facility] LABORATORY Lymphocytes % 7.1 % [facility] Lymphocytes Abs 0.8 (L) 0.9 - 3.2 [facility] x10(3)/[facility] LABORATORY Monocytes % 8.8 % [facility] Monocyte Abs 1.0 (H) 0.3 - 0.9 [facility] x10(3)/[facility] LABORATORY Eosinophils % 0.4 % [facility] Eosinophils Abs 0.0 0.0 - 0.4 [facility] x10(3)/[facility] LABORATORY Basophils % 0.4 % [facility] Basophils Abs 0.0 0.0 - 0.1 [facility] x10(3)/[facility] LABORATORY Immature Gran % 0.70 [...] Organization Address City/State/ZIP Code Phon e Number [place] [id number]OSPITAL LAB[address] (ABNORMAL) Hemogram (12/25/2021 7:46 AM EDT) Analysis Performed At Patho logist Time Signature WBC 11.4 (H) 4.0 - 9.5 [facility] x10(3)/[facility] LAB[facility]ATORY RBC 4.23 (L) 4.58 - [facility] 5.54 [facility] x10(6)/[facility] LABORATORY Hemoglobin 12.3 (L) 13.7 - [facility] 16.5 g/dL [facility] Hematocrit 37.7 (L) 40.5 - [facility] 48.5 % [facility] LABORATORY MCV 89.1 82.9 - [facility] 93.1 [facility] LABORATORY MCH 29.1 27.5 - [place] 32.1 pg [facility] MCHC 32.6 32.0 - [facility] 35.7 g/dL [facility] Platelets 215 145 - 357 [facility] x10(3)/[facility] LABORATORY RDWSD 49.8 (H) 36.0 - [place] 45.0 [facility] RDWCV 15.2 (H) 11.4 - [facility] 13.8 % [facility] LABORATORY MPV 9.2 7.6 - 12.9 [facility] LABORATORY nRBC % Auto 0.0 % [facility] nRBC Abs Auto 0.000 0.000 - [facility] 0.000 [facility] x10(3)/[facility] LABORATORY Specimen Anatomical Collection Method Collection Time Receive d Time (Source) Location / / Volume Laterality Blood 12/25/2021 7:46 AM 8:01 EDT AM EDT Resulting Agency Comment Spec In Lab Liz BROWN HEMATOLOGY ORDERABLES Performing Organization Address City/State/[place] [address] (ABNORMAL) Basic Metabolic Panel (non-fasting) (12/25/2021 7:46 AM EDT) P athologist Signature Glucose Lvl 272 (H) 65 - 199 [facility] mg/dL [facility] Comment: Diabetes: >=200 mg/dL plus symp toms BUN 62 (H) 10 - 20 mg/dL [facility] LABORATORY Creatinine 1.81 (H) 0.80 - 1.50 mg/dL [facility] LABOR[facility]ORY Sodium 134 (L) 135 - 145 mmol/L [facility] LABOR[facility] Potassium 4.9 3.5 - 5.0 mmol/L [facility] [...] LABORATORY Calcium 9.4 8.5 - 10.5 mg/dL [facility] Estimated GFR 36 (L) >=60 [...] Plunkett MD CHEMISTRY ORDERABLES Performing Organization Address City/[facility]/[place] [address] (ABNORMAL) pro-Brain Natriuretic Peptide (12/25/2021 7:46 AM EDT) P athologist Signature ProBNP 1,380 (H) <=124 [facility] pg/mL [facility]ORY Specimen Anatomical Collection Method Collection Time Receive d Time (Source) Location / / Volume Laterality Blood 12/25/2021 7:46 AM 2 8:01 EDT AM EDT Resulting Agency Comment Spec In Lab Zulma Plunkett MD CHEMISTRY ORDERABLES Performing Organization Address City/[facility]/ZIP [facility] [place] [address] documented in this encounter Visit Diagnoses Diagnosis Chronic systolic heart failure documented in this encounter Care Teams Boat Builder Relationship Specialty Start Date End Date Lovely Vicente MD PCP - General 04/16/[address] [place] [address] documented as of this encounter
--- OUTSIDE RECORDS SUMMARY | 2022-04-08 08:47 | XMS_ITS | Encounter Summary ---
:1945 Author Organization [facility] [place] [address] Care Team Providers Name Role Phone Lovely Vicente MD Primary Care Provider Encounter Details Date Type Department Care Team Description 12/07/2021 Telephone Cardiology Eddi Briceño Jr., [facility] [place] [address] [facility] [phone] CARDIOLOGY DEPT [place], [place] [address] (Wo rk) Social History Tobacco [...] the OSH ED provider/staff member. Referring Location: [facility] Referring Provider: Marisela Dean, INSURANCE BILLER [address] [place] [address] Don Veda Kushal 76 y.o. w / [...] bpm, LAFB, poor R wave progression, septal VA, and lateral STD, overall no significantchange from [...] Zulma Dolan MD [facility] [place] [address] Liz Poole PA [facility] [place] [address] 06/10/2022 Office Visit Dermatology Laura Scherer MD [facility] [address] [place], [place] [address] (Wo rk) documented as of this encounter Visit Diagnoses Not on filedocumented in this encounter Care Teams Mesh Worker Relationship Specialty Start Date End Date Lovely Vicente MD PCP - General 04/16/15 [facility] [address] [place] [address] documented as of this encounter
--- OUTSIDE RECORDS SUMMARY | 2022-04-08 08:47 | XMS_ITS | Encounter Summary ---
:1945 Author Organization [place] [address] Care Team Providers Name Role Phone Lovely Vicente MD Primary Care Provider Encounter Details Date Type Department Care Team Description 03/20/2021 Ancillary Procedure Radiology Library [place] [address] [place] [address] [phone] Social History Tobacco Use Types Packs/Day Years [...] MD [facility] [place] [address] (Wo rk) 05/28/2022 Laboratory Appointment Lab 05/28/2022 Office Visit Cardiology Zulma Dolan [place] [address] Liz Poole PA [facility] [place] [address] 06/10/2022 Office Visit Dermatology Laura Scherer MD [facility] ER [address] [place], [place] [address] (Wo rk) documented as [...] Organization Address City/State/ZIP Code Phon e Number [place], [place] documented in this encounter Visit Diagnoses Not on filedocumented in this encounter Care Teams Ship Boat Or Barge Mate Relationship Specialty Start Date End Date Lovely Vicente MD PCP - General 04/16/[address] [place] [address] documented as of this encounter
--- OUTSIDE RECORDS SUMMARY | 2022-04-08 08:47 | XMS_ITS | Encounter Summary ---
:1945 Author Organization [place] [address] Care Team Providers Name Role Phone Lovely Vicente MD Primary Care Provider Encounter Details Date Type Department Care Team Description 03/20/2021 Ancillary Procedure Radiology Library at [place] [address] [place] [address] [phone] Social History Tobacco Use Types Packs/Day Years [...] Zulma Dolan MD [facility] [place] [address] (Wo rk) 05/28/2022 Laboratory Appointment Lab 05/28/2022 Office Visit Cardiology Zulma Dolan MD [facility] [place] [address] Liz Poole PA [facility] [place] [address] 06/10/2022 Office Visit Dermatology Laura Scherer MD [facility] ER [address] [place], [place] [address] (Wo rk) documented as [...] Organization Address City/State/ZIP Code Phon e Number [place], [place] documented in this encounter Visit Diagnoses Not on filedocumented in this encounter Care Teams Process Engineering Intern Relationship Specialty Start Date End Date Lovely Vicente MD PCP - General 04/16/[address] [place] [address] documented as of this encounter
--- OUTSIDE RECORDS SUMMARY | 2022-04-08 08:47 | XMS_ITS | Encounter Summary ---
:1945 [place] [address] Care Team Providers Name Role Phone Lovely Vicente MD Primary Care Provider Encounter Details Date Type Department Care Team Description 03/20/2021 Telephone Neurology at [facility] Hugo Gaston MD [facility] [place] [address] [place] [address] [phone] (Wo rk) Social History Tobacco Use Types [...] Gaston MD Department of Neurology Pager # [phone] documented in this encounter Plan of Treatment Upcoming Encounters Date Type Specialty Care Team Description 05/28/2022 Appointment Cardiology Zulma Dolan MD [facility] [place], [place] [address] (Wo rk) 05/28/2022 Laboratory Appointment Lab 05/28/2022 Office Visit Cardiology Zulma Dolan MD [facility] [place] [address] Liz Poole PA [facility] [place] [address] 06/10/2022 Office Visit Dermatology Laura Scherer MD [facility] DR [address] [place], [place] [address] (Wo rk) documented as of this encounter Visit Diagnoses Not on filedocumented in this encounter Care Teams Chuck Wagon Cook Relationship Specialty Start Date End Date Lovely Vicente MD PCP - General 04/16/[address] [place] [address] documented as of this encounter
--- OUTSIDE RECORDS SUMMARY | 2022-04-08 08:47 | XMS_ITS | Encounter Summary ---
:1945 Author Organization [facility] [place] [address] Care Team Providers Name Role Phone Lovely Vicente MD Primary Care Provider Encounter Details Date Type Department Care Team Description 04/16/2021 Laboratory Appointment Lab 3L [facility] [place] [address] Social History Tobacco Use Types Packs/Day Years [...] Dolan MD [facility] er [place], [place] [address] (Wo rk) 05/28/2022 Laboratory Appointment Lab 05/28/2022 Office Visit Cardiology Zulma Dolan MD [facility] [place] [address] Liz Poole PA [facility] [place] [address] 06/10/2022 Office Visit Dermatology Laura Scherer MD [facility] ER DR [address] [place], [place] [address] (Wo rk) documented as of this encounter [...] Organization Address City/State/[place] [address] (ABNORMAL) Basic Metabolic Panel (non-fasting) (04/16/2021 9:58 AM EDT) athologist Signature Glucose Lvl 77 65 - [address] [facility] mg/dL [facility] LABOR[facility]ORY Comment: [...] Organization Address City/State/[place] [address] documented in this encounter Visit Diagnoses Diagnosis Chronic systolic heart failure documented in this encounter Care Teams Baker Chef Relationship Specialty Start Date End Date Lovely Vicente MD PCP - General 04/16/[address] [place] [address] documented as of this encounter
--- OUTSIDE RECORDS SUMMARY | 2022-04-08 08:47 | XMS_ITS | Encounter Summary ---
:1945 [place] [address] Care Team Providers Name Role Phone Lovely Vicente MD Primary Care Provider Encounter Details Date Type Department Care Team Description 12/07/2021 Ancillary Procedure [facility] Lovely murillo MD [facility] [address] [address] [place], [place] [phone] (Wo lissa) [address] [phone] Social History Tobacco Use Types Packs/Day Years [...] [facility] [address] [place] [address] (Wo rk) 05/28/2022 Laboratory Appointment Lab 05/28/2022 Office Visit Cardiology Zulma Dolan MD [facility] [place] [address] Liz Poole PA [facility] [place] [address] 06/10/2022 Office Visit Dermatology Laura Scherer MD [facility] DR [address] [place], [place] [address] (Wo rk) documented as of [...] Organization Address City/State/ZIP Code Phon e Number [place], [place] documented in this encounter Visit Diagnoses Not on filedocumented in this encounter Care Teams Yard General Car Supervisor Relationship Specialty Start Date End Date Lovely Vicente MD PCP - General 04/16/[address] [place] [address] documented as of this encounter
--- OUTSIDE RECORDS SUMMARY | 2022-04-08 08:47 | XMS_ITS | Encounter Summary ---
:1945 [place] [address] Care Team Providers Name Role Phone Lovely Vicente MD Primary Care Provider Encounter Details Date Type Department Care Team Description 04/16/2021 Office Visit Cardiology at [facility] Liz Poole, Chronic systolic heart [facility] [place] [address] Cardiology Dept [phone] [place], [place] [address] Social History Tobacco Use Types [...] was feeling good. 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 Post-op atrial fibrillation [id number] (CHF, HTN, DM, vascular disease, thromboembolism) On warfarin - recent labile INR Will discuss with PCP, option of Luis Daniel 7. PAD 08/06/2017: Right 1st, 2nd, 3rd toe amputation 08/11/2017: Left??femoral arterial access, RLE??angiogram, Balloon angioplasty of R PT 10/25/2017: right popliteal-pedal bypass at [facility] 8. Hypothyrodism S/p thyroidectomy for goiter [...] Zulma Dolan MD [facility] [place], [place] [address] (Wo rk) 05/28/2022 Laboratory Appointment Lab 05/28/2022 Office Visit Cardiology Zulma Dolan MD [facility] [place] [address] Liz Poole PA [facility] [place] [address] 06/10/2022 Office Visit Dermatology Laura Scherer MD [facility] [address] [place] [address] (Wo rk) documented as of this encounter Results (ABNORMAL) Basic Metabolic Panel (non-fasting) (04/16/2021 9:58 AM EDT) athologist Signature Glucose Lvl 77 65 - 199 [facility] mg/dL [facility] [...] Organization Address City/State/[place] [address] (ABNORMAL) pro-Brain Natriuretic Peptide [...] Organization Address City/State/[place] [address] documented in this encounter Visit Diagnoses Diagnosis Chronic systolic heart failure documented in this encounter Care Teams General Road Production Manager Relationship Specialty Start Date End Date Lovely Vicente MD PCP - General 04/16/[address] [place] [address] documented as of this encounter
--- OUTSIDE RECORDS SUMMARY | 2022-04-08 08:47 | XMS_ITS | Encounter Summary ---
:1945 Author Organization [facility] [place] [address] Care Team Providers Name Role Phone Lovely Vicente MD Primary Care Provider Encounter Details Date Type Department Care Team Description 12/07/2021 External Results Administration [facility] [place] [address] Social History Tobacco Use Types Packs/Day [...] MD [facility] er [address] [place] [address] (Wo rk) 05/28/2022 Laboratory Appointment Lab 05/28/2022 Office Visit Cardiology Zulma Dolan MD [facility] [place] [address] Liz Poole PA [facility] [place] [address] 06/10/2022 Office Visit Dermatology Laura Scherer MD [facility] ER DR [address] [place], [place] [address] (Wo rk) documented as of [...] on filedocumented in this encounter Care Teams Confectionery Cooker Relationship Specialty Start Date End Date Lovely Vicente MD PCP - General 04/16/[address] [place] [address] documented as of this encounter
--- OUTSIDE RECORDS SUMMARY | 2022-04-08 08:47 | XMS_ITS | Encounter Summary ---
:1945 Author Organization [facility] [place] [address] Care Team Providers Name Role Phone Lovely Vicente MD Primary Care Provider Reason for Referral Consultation (Routine) - Closed Specialty Diagnoses / Referred By Contact Referred To Contact Procedures Cardiac Rehabilitation Diagnoses Acute HFrEF (heart failure with reduced ejection fraction) Janneth Padilla, Cardiac Rehab, [address] [place], [place] CARDIOLOGY DEPT. [address] [place] [address] Referral ID Status Reason Start Date Expiration Date Visits V isits Requested Authorized [id number] Closed Consult, 12/12/2021 12/12/2022 36 36 Test & Treat Reason for Visit Auth/Cert Specialty Diagnoses / Procedures Referred By Contact Refer red To Contact Diagnoses NSTEMI Procedures emerg ipi Referral ID Status Reason Start Date Expiration Date Visits Requ ested Visits Authorized [id number] 1 1 Encounter Details Date Type Department Care Team Description 12/08/2021 - Hospital Encounter Intermediate Cardiac Iker Cuevas MD [facility] [place] [address] Non-ST elevation myocardial infarction ( NSTEMI); 12/12/2021 Care Unit Ifeanyi Rene MD [facility] [place] [address] ST elevation myocardial infarction (STEM I), unspecified artery; [facility] Acute HFr EF (heart failure with reduced ejection fraction) [place] [address] Social History Tobacco Use Types Packs/Day Years [...] Don Fatima Patient Age: 76 y.o. Language: Tamazight Race: White Ethnicity: Not nor Admit date: [...] Peter PA-C Kelly LaFlamme PA-C Cardiovascular Medicine [phone] Discharge Diagnoses (Hospital Problems) and Secondary Diagnoses [...] 3.75 guiding catheter and a 3.[address] [place] 20 Mhz using Manual pullback. Imaging was successful. Image quality was good. The ostial LCX showed moderate diffuse atherosclerotic plaque with scattered three quadrant calcification. Measurements were performed after pre-dilation. Post Intervention: The stent was well expanded and apposed. Intravascular Ultrasound was performed in the distal LM using a 7 Fr EBU 3.75 guiding catheter and a 3.[address] [place] 20 Mhz using Manual pullback. Imaging was [...] x 15 mm NC balloon to 22 dasrhan. We performed IVUS which showed the entire [...] may require modification of this regimen. Consult [facility] Interventional Cardiology for questions. The 1 year [...] vascular congestion and cardiomegaly. ?? TTE from [facility] 12/08/21 ? Prior Cardiac Studies: [...] prior thyroidectomy in 2012 who presented to [facility] with 1 week progressing breathlessness [...] 03/2021 with Liz Poole PA-C. ?? At [facility], respiratory distress with hypoxia 86% [...] mg PO daily in place of lasix. [place] is new for him and he will have a BMP checked on 12/[address] Cuevas spoke with the patient's and told her that him drinking too much water and diet drinks did not cause his AK. This is what his thought was the [...] to be ~$24/mo; affordable per patient. Post [facility] he was started on Eliquis. He [...] appointments: During 8am-5pm Wednesday through Wednesday call [phone] to speak with a nurse in the cardiology clinic All other times call [phone] and ask to speak to the batchmaker projection technician. Return to work: One week Driving: No driving for 48 hours after catheterization. Follow up Appointments: PCP Lovely Vicente MD [phone] to see patient at the end of December for annual check up. Patient to see Dr. Lorenzana at 1120 am at December 19 for a post hospital check up. Mask Inspector Dr. De Oliveira to see you in [facility]. Left a message for office to set a date and time. Please call [phone] Nobles to see the patient for a same day cath in 2-3 weeks from now. Office to call with a date and time. For questions please call [phone] Home oxygen therapy: N/A Arrangements for VNA/home care: none Future Appointments and Orders Future Orders Complete By Expires Basic Metabolic Panel (non-fasting) [LAB15 Custom] 12/19/2021 (Approximate) 12/12/2022 Process Instructions: INCLUDES: Calcium, BUN, Creat, GFR, Glucose, Lytes Scheduling Instructions: Comments: Questions: Referral to Cardiac Rehab [KNC632 Custom] As directed Process Instructions: If no [...] appointments: During 8am-5pm Wednesday through Wednesday call [phone] to speak with a nurse in the cardiology clinic All other times call [phone] and ask to speak to the batchmaker projection technician. Return to work: One week Driving: No driving for 48 hours after catheterization. Follow up Appointments: PCP Lovely Vicente MD [phone] to see patient at the end of December for annual check up. Patient to see Dr. Lorenzana at 1120 am at December 19 for a post hospital check up. Mask Inspector Dr. De Oliveira to see you in [facility]. Left a message for office to set a date and time. Please call [phone] Nobles to see the patient for a same day cath in 2-3 weeks from now. Office to call with a date and time. For questions please call [phone] Home oxygen therapy: N/A Arrangements for VNA/home [...] Progress Note Patient Name: Don Fatima Service: SEARCH ENGINE OPTIMIZATION ANALYST / PA Responsible Attending: Ifeanyi Truong MD [...] given Lasix 80mg IV x1 in labor economics teacher. Tolerated procedure well. Home today at 11 [...] TROPONINT 1.13* 0.92* 0.89* Pertinent Radiographic/Diagnostic Results: R/[facility] 12/10/21 Hemodynamics: Right Heart Pressures Resting: [...] pulmonary vascular congestion and cardiomegaly. TTE from [facility] 12/08/21 Prior Cardiac Studies: TTE [...] with MD Janneth Neville PA 12/12/2021 Pager [phone] Associated attestation - Ifeanyi Truong MD - [...] ratio for each meal) Desirae Jett APRN [facility] Endocrinology Diabetes Management Pager [phone] 20 minutes of this 35 minute visit [...] Progress Note Patient Name: Don Fatima Service: SEARCH ENGINE OPTIMIZATION ANALYST / PA Responsible Attending: Iker Cuevas MD [...] + trop. Known CAD with hx of AK and CABG. DM. MARIA VICTORIA.ICM. ??? ASHD [...] given Lasix 80mg IV x1 in labor economics teacher. Tolerated procedure well. Review of Systems: Review [...] TROPONINT 1.13* 0.92* 0.89* Pertinent Radiographic/Diagnostic Results: R/[facility] 12/10/21 Hemodynamics: Right Heart Pressures Resting: [...] pulmonary vascular congestion and cardiomegaly. TTE from [facility] 12/08/21 Prior Cardiac Studies: TTE [...] and answered his questions. Iker Cuevas MD [facility] Total time spent on review of records prior to visit, face to face time with patient during visit, documentation, and coordination of care with other clinicians: 25 minutes. . Iker Cuevas MD - 12/10/2021 12:30 PM EDT Images from the original note were not included. Inpatient Cardiology Progress Note Patient Name: Don Fatima Service: SEARCH ENGINE OPTIMIZATION ANALYST / PA Responsible Attending: Iker Cuevas MD Reason for continued hospitalization: NSTEMI- s/p R/LHC- PCW 27, occluded SVGs s/p PCI to ostial LCX ADHF and hypoxia- IV diuresis Active Problems: Active Hospital Problems Diagnosis ??? Admitted with 2 days of sob, hypoxemia, and + trop. Known CAD with hx of AK and CABG. DM. MARIA VICTORIA.ICM. ??? ASHD [...] given Lasix 80mg IV x1 in labor economics teacher. Tolerated procedure well. Review of Systems: Review [...] ??? heparin (porcine) infusion 1,600 Units/hr (12/09/21 5147) PRN Meds:ipratropium-albuteroL, senna-docusate, bisacodyL, sodium chloride 0.9 [...] TROPONINT 1.13* 0.92* 0.89* Pertinent Radiographic/Diagnostic Results: /[facility] 12/10/21 Hemodynamics: Right Heart Pressures Resting: [...] pulmonary vascular congestion and cardiomegaly. TTE from [facility] 12/08/21 Prior Cardiac Studies: TTE [...] Discussed with MD Migdalia Peter PA-C Pager #[phone] 12/10/2021 Cardiology Attending Note I have seen [...] updated and given pictures. Iker Cuevas MD [facility] Total time spent on review of records prior to visit, face to face time with patient during visit, documentation, and coordination of care with other clinicians: 35 minutes. Iker Cuevas MD - 12/09/2021 7:28 AM EDT Images from the original note were not included. Inpatient Cardiology Progress Note Patient Name: Don Fatima Service: SEARCH ENGINE OPTIMIZATION ANALYST / PA Responsible Attending: Iker Cuevas MD Reason for continued hospitalization: NSTEMI- awaiting R/LHC ADHF and hypoxia- IV diuresis, R/LHC Active Problems: Active Hospital Problems Diagnosis ??? Admitted with 2 days of sob, hypoxemia, and + trop. Known CAD with hx of AK and CABG. DM. MARIA VICTORIA.ICM. ??? ASHD [...] ??? heparin (porcine) infusion 1,600 Units/hr (12/09/21 9584) PRN Meds:ipratropium-albuteroL, sodium chloride 0.9 % (flush), [...] pulmonary vascular congestion and cardiomegaly. TTE from [facility] 12/08/21 Prior Cardiac Studies: TTE [...] Discussed with MD Migdalia Peter PA-C Pager #[phone] 12/09/2021 Cardiology Attending Note I have seen and examined the patient. I agree with the findings above. Developed CHF early this am despite getting more iv lasix last evening. Feeling better now. INR > 2. Lungs still wet at base. Echo at [facility] showed EF 35% with mild mod MR slightly lower than last value here. -vit K 2.5 orally to facilitate correction of INR- this will take 12-24 hours to take effect -furosemide 80 mg iv now -postpone right and left heart cath until tomorrow given INR and ADHF -increase statin to achieve LDL < 70 -CPAP tonight Iker Cuevas MD [facility] Total time spent on review [...] + trop. Known CAD with hx of AK and CABG. DM. MARIA VICTORIA.ICM. ??? ASHD [...] prior thyroidectomy in 2012 who presented to [facility] with 1 week progressing breathlessness [...] visit 03/2021 with Liz Poole PA-C. At [facility], respiratory distress with hypoxia 86% [...] SETUP performed by Manny Mcknight MD at [facility] OR ??? PRO AMPUTATION FOOT, TRANSMETATARSAL Right 08/09/2017 AMPUTATION, TRANSMETATARSAL (WRVU 12.71) performed by Yonathan Smith MD at [facility] OR ??? PRO CABG, ARTERIAL, SINGLE N/A 07/07/2017 @CABG, USING ARTERIAL GRAFT;SINGLE ARTERIAL GRAFT (WRVU 33.75) performed by Yuan Retana MD at [facility] OR ??? PRO CABG, ARTERY-VEIN, TWO N/A 07/07/2017 @CABG, TWO VENOUS GRAFTS & ARTERIAL GRAFT (WRVU 7.93) performed by Yuan Retana MD at [facility] OR ??? PRO COLONOSCOPY, REMV LESN, SNARE 01/16/2014 COLONOSCOPY, POLYPECTOMY, REMOVAL LESION BY SNARE performed by Nohemi Jaimes MD at [facility] ENDOSCOPY ??? PRO DRESSING CHANGE UNDER ANESTHESIA Right 08/11/2017 (MSURG) DRESSING CHANGE (FOR OTHER THAN IVAN) UNDER ANES. (WRVU 0.86) performed by Lamar Smith MD at [facility] OR ??? PRO ENDOSCOPY W/VIDEO-ASST VEIN HARVEST, CABG Right 07/07/2017 ENDOSCOPIC HARVEST VEIN(S) FOR CABG (WRVU 0.31) performed by Yuan Retana MD at [facility] OR ??? PRO THYROIDECTOMY 03/28/2013 THYROIDECTOMY, TOTAL OR COMPLETE performed by Manny Mcknight MD at [facility] MAIN OR Significant Family History: Family [...] (H) 65 - 199 mg/dL Labs at [facility] 12/08/2021-troponin I 8004 (UN L [...] Monitor for ADRs. Trend troponins. Admission EKG. [facility] 12/09; consented. TTE. Telemetry monitoring, daily [...] code #Diet-carb control; n.p.o. after midnight for [facility] #DVT prophy- heparin infusion #GI prophy- PPI Discussed with MD Morgan Peter PA-C APP2 pager [phone] 12/08/2021 Cardiology Attending Note I have seen [...] is type 1 due to graft or [place] coronary stenosis vs acute injury from CHF. 3. PAF: currrently in NSR. Have replaced warfarin with heparin 4. PAD: stable 5. DM: stable 6. CKD: will monitor and minimize contrast. Pt very appreciative of Dr. Yuan Retana's care in 2018. Will let him know patient is here. Iker Cuevas MD [facility] documented in this encounter Miscellaneous [...] Type: *No Product type* / Secondary Insurance: [employer] [place] Prescription Coverage: Yes This plan was formulated [...] cath without complications. Migdalia Parker PA-C Pager #[phone] 12/10/2021 Initial Assessments - Nick Georges RN [...] COVID test: Lab Results Component Value Date [id number] Not Detected 12/08/2021 Past medical History: Past [...] spouse would be surrogate decision maker per [place] surrogate decision making law. (Only good for 180 days) Any patient receiving care at [facility] must abide by [place] law. The hierarchy for surrogate decision making [...] - standard, cane - straight Home Address: [address] [place] [address] [place] [address] Social & Family Supports: All names listed below confirmed with patient as current and correct Extended Emergency Contact Information Primary Emergency Contact: Kisha Fatima Address: [address] [place] [address] [place] [address] [facility] Mobile Relation: Spouse Secondary Emergency Contact: Elba Swenson Address: [address] Mobile Relation: Child Current Care Provided [...] / Secondary Insurance: [employer] [place] Prescription Coverage: Yes Preferred Pharmacy: [facility] [address] [address] - [place], [place] - [address] [place] [id number] [place] Status: Patient is a : unable to assess Primary Care Provider: Lovely Vicente MD [phone] Patient/Caregiver Goals of Treatment: Get out of here Potential Needs for Transition of Care: none Agency Referrals: none patient has used [facility] in the past Transportation: no concerns Transportation Anticipated: family or friend will provide Concerns to be Addressed: patient refuses services, discharge planning Assessment: Patient is admitted to [facility] Service pager [phone] for 76 y.o.??male??with h/o??CAD s/p 3vCABG (THOMPSON-LAD, [...] status on current unit. Nick Georges RN corsets salesperson, Office of Care Management Pager: [phone] Brief Op Note - Vitaliy Nobles MD - 12/10/2021 8:31 AM EDT Images from the original note were not included. Formerly [facility] [place] [address] CORONARY ANGIOGRAM AND PERCUTANEOUS CORONARY INTERVENTION REPORT Patient: Don Fatima : 1945 MR number: [id number] Date of Service: 12/10/2021 Edge Trimmer Mechanic: Vitaliy Nobles MD Fellow: [place] MD [...] 2 flow. Bypass graft circulation: ?? The THOMPSNO to LAD is patent. ?? The SVG [...] management and to provide a review of filler leaf cutter long diabetes care. Diabetes History: Don Fatima has had diabetes for 10 years. He has been on insulin for the last several years andis managed by his PCP. Lives in [place], [place] with his . 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 Monitoring - continue BG tid ac & hs Diet - low fat/low carb diet Exercise - weight-bearing exercise 30 min/day, as tolerated Thank you for allowing us to provide care for your patient Desirae Johnie QUINONES Endocrinology Pager [phone] 70 minutes of this 80 minute visit [...] + trop. Known CAD with hx of AK and CABG. DM. MARIA VICTORIA.ICM. ??? ASHD [...] to remain on Med/Surg floor, please page [phone] for any further questions or concerns. LANDON [...] for further details. STEPHANIE Rebolledo 12/08/2021 Pager [phone] documented in this encounter Plan of Treatment Upcoming Encounters Date Type Specialty Care Team Description 05/28/2022 Appointment Cardiology Zulma Dolan MD [facility] [place], [place] [address] (Wo rk) 05/28/2022 Laboratory Appointment Lab 05/28/2022 Office Visit Cardiology Zulma Dolan MD [facility] [place] [address] Liz Poole PA [facility] [place] [address] 06/10/2022 Office Visit Dermatology Laura Scherer MD [facility] DR TEJA GR-DERMAT [facility] [place] [place] [address] (Wo rk) Scheduled Referrals Name [...] [facility] mg/dL [facility] Comment: Supplemental ranges: <140 mg/dL before meals <180 mg/dL all other times of the day Specimen Anatomical Collection Method Collection Time Receive d Time (Source) Location / / Volume Laterality Blood 12/12/2021 7:42 AM 7:42 EDT AM EDT Ifeanyi Truong MD POINT OF CARE TEST ORDERABLE S Performing Organization Address City/State/[place] [address] (ABNORMAL) Differential, Automated (12/12/2021 4:51 AM EDT) athologist Signature Neutrophils % 75.4 % [facility] Neutr Abs (ANC) 5.95 1.70 - [facility] 6.10 [facility] x10(3)/[facility] LABORATORY Lymphocytes % 12.2 % [facility] Lymphocytes Abs 1.0 0.9 - 3.2 [facility] x10(3)/[facility] LABORATORY Monocytes % 9.5 % [facility] Monocyte Abs 0.8 0.3 - 0.9 [facility] x10(3)/[facility] LABORATORY Eosinophils % 1.8 % [facility] Eosinophils Abs 0.1 0.0 - 0.4 [facility] x10(3)/[facility] LABORATORY Basophils % 0.5 % [facility] Basophils Abs 0.0 0.0 - 0.1 [facility] x10(3)/[facility] LABORATORY Immature Gran % [...] Organization Address City/State/[place] [address] (ABNORMAL) Hemogram (12/12/2021 4:51 AM EDT) Analysis Performed At Patho logist Time Signature WBC 7.9 4.0 - 9.5 [facility] x10(3)/[facility] LABORATORY RBC 4.19 (L) 4.58 - [facility] 5.54 [facility] x10(6)/[facility] LABORATORY Hemoglobin 12.1 (L) 13.7 - [facility] 16.5 g/dL [facility] Hematocrit 36.7 (L) 40.5 - [facility] 48.5 % [facility] MCV 87.6 82.9 - [facility] 93.[address] [facility] MCH 28.9 27.5 - [facility] 32.[address] [facility] MCHC 33.0 32.0 - [facility] 35.7 g/dL [facility] Platelets 231 145 - 357 [facility] x10(3)/[facility] LABORATORY RDWSD 47.2 (H) 36.0 - [facility] SU 45.0 [facility] LABORATORY RDWCV 14.6 (H) 11.4 - [facility] 13.8 % [facility] MPV 9.5 7.6 - 12.9 [facility] LABORATORY nRBC % Auto 0.0 % [facility] nRBC Abs Auto 0.000 0.000 - [place] 0.000 [facility] x10(3)/[facility] LABORATORY Specimen Anatomical Collection Method Collection Time Receive d Time (Source) Location / / Volume Laterality Blood 12/12/2021 4:51 AM 2 5:06 EDT AM EDT Resulting Agency Comment Spec In Lab Bijan Sun MD HEMATOLOGY ORDERABLES Performing Organization Address City/[facility]/[place] [address] (ABNORMAL) Prothrombin Time (12/12/2021 4:51 AM EDT) P athologist Signature PT 14.9 (H) 9.4 - 12.5 [facility] LABORATORY INR 1.3 [facility] Comment: [...] Cuevas MD HEMATOLOGY ORDERABLES Performing Organization Address City/[facility]/[place] [address] (ABNORMAL) BMP w/fasting Glucose (12/12/2021 4:51 AM EDT) athologist Signature Glucose 152 (H) 65 - 99 [facility] Fasting mg/dL [facility] Comment: ?Fasting* Glucose Interpretive C [...] of Diabetes Mellitus, Position Statement from the [place] [employer]. ??Diabete s Care, Volume 33, [...] Cuevas MD CHEMISTRY ORDERABLES Performing Organization Address City/[facility]/ZIP [facility] Phon e Number [address] Magnesium (12/12/2021 4:51 AM EDT) P athologist Signature Magnesium 1.02 0.69 - 1.07 [facility] mmol/L [facility]ORY Specimen Anatomical Collection Method Collection Time Receive d Time (Source) Location / / Volume Laterality Blood 12/12/2021 4:51 AM 2 5:06 EDT AM EDT Resulting Agency Comment Spec In Lab Iker Cuevas MD CHEMISTRY ORDERABLES Performing Organization Address [facility] Phon e Number [address] POCT Glucose (12/12/2021 3:43 AM EDT) P athologist Signature POC Glucose 138 65 - 199 [facility] mg/dL [facility] Comment: Supplemental ranges: <140 mg/dL before meals <180 mg/dL all other times of the day Specimen Anatomical Collection Method Collection Time Receive d Time (Source) Location / / Volume Laterality Blood 12/12/2021 3:43 AM 2 3:43 EDT AM EDT Iker Cuevas MD POINT OF CARE TEST ORDERABLE S Performing Organization Address City/State/[place] [address] POCT Glucose (12/11/2021 11:44 PM EDT) athologist Signature POC Glucose 124 65 - 199 [facility] mg/dL [facility] Comment: Supplemental ranges: <140 mg/dL before meals <180 mg/dL all other times of the day Specimen Anatomical Collection Method Collection Time Receive d Time (Source) Location / / Volume Laterality Blood 12/11/2021 11:44 12/11/2021 PM EDT 11:44 PM EDT Iker Cuevas MD POINT OF CARE TEST ORDERABLE S Performing Organization Address City/[facility]/[place] [address] (ABNORMAL) POCT Glucose (12/11/2021 8:12 PM EDT) athologist Signature POC Glucose 200 (H) 65 - 199 [facility] SU mg/dL [facility] Comment: Supplemental ranges: <140 mg/dL before meals <180 mg/dL all other times of the day Specimen Anatomical Collection Method Collection Time Receive d Time (Source) Location / / Volume Laterality Blood 12/11/2021 8:12 PM 2 8:12 EDT PM EDT Iker Cuevas MD POINT OF CARE TEST ORDERABLE S Performing Organization Address City/[facility]/[place] [address] (ABNORMAL) POCT Glucose (12/11/2021 6:50 PM EDT) athologist Signature POC Glucose 245 (H) 65 - 199 [facility] mg/dL [facility] Comment: Supplemental ranges: <140 mg/dL before meals <180 mg/dL all other times of the day Specimen Anatomical Collection Method Collection Time Receive d Time (Source) Location / / Volume Laterality Blood 12/11/2021 6:50 PM 2 6:50 EDT PM EDT Iker Cuevas MD POINT OF CARE TEST ORDERABLE S Performing Organization Address City/State/[place] [address] (ABNORMAL) POCT Glucose (12/11/2021 4:00 PM EDT) athologist Signature POC Glucose 383 (H) 65 - 199 [facility] Comment: Supplemental ranges: <140 mg/dL before meals <180 mg/dL all other times of the day Specimen Anatomical Collection Method Collection Time Receive d Time (Source) Location / / Volume Laterality Blood 12/11/2021 4:00 PM 4:00 EDT PM EDT Iker Cuevas MD POINT OF CARE TEST ORDERABLE S Performing Organization Address City/[facility]/[place] [address] (ABNORMAL) POCT Glucose (12/11/2021 12:01 PM EDT) athologist Signature POC Glucose 342 (H) 65 - 199 [facility] Comment: Supplemental ranges: <140 mg/dL before meals <180 mg/dL all other times of the day Specimen Anatomical Collection Method Collection Time Receive d Time (Source) Location / / Volume Laterality Blood 12/11/2021 12:01 12/11/2021 PM EDT 12:01 PM EDT Iker Cuevas MD POINT OF CARE TEST ORDERABLE S Performing Organization Address City/[facility]/[place] [address] COVID-19 PCR (12/11/2021 10:13 AM EDT) [facility] Method Time Signature SARS-CoV-2 Not Detected Not Detected [facility] RNA [facility] LABORATORY Comment: This result should [...] diagnosis of COVID-19 is performed using the [employer] Dianna FRIEND S-CoV-2 Assay as authorized by the FDA Emergency Use Authorization (EUA). This EUA assay is intended for In-vitro Diagnostic (IVD) use with respiratory sp ecimens such as nasopharyngeal swabs collected from individuals during the ac terrence phase of infection. This assay is performed based on the instructions for use provided by [employer] and additional guidance provided by CDC and FDA. Testing is performed in the Clinical Genomics and Advanced Technolog y Laboratory within the Department of Pathology and Laboratory Medicine at [facility], certified under the Clinical Laboratory Improvement [...] fact sheets at the following FDA website: https://www.fda.gov/medical-devices/sxpphvaeahh-ltfvonl-9676-jaxrm-44-xwqumcicd- jtm-vykdzwhxzqtvdd-tgvvqft-devices/zbmob-muiujizpdad-teez SARS-Cov-2 RNA Source SEARCH ENGINE OPTIMIZATION ANALYST Swab [facility] LABORATORY Specimen (Source) Anatomical Collection Method Collection Time Re ceived Time Location / / Volume Laterality Nasopharyngeal Swab 12/11/2021 10:13 0503/2022 AM EDT 11:16 AM EDT Comment: Symptoms->Surveillance Resulting Agency Comment Spec In Lab Iker Cuevas MD MICROBIOLOGY - GENERAL ORDER ROBSON Performing Organization Address City/[facility]/[place] [address] POCT Glucose (12/11/2021 7:34 AM EDT) athologist Signature POC Glucose 198 65 - 199 [facility] Comment: Supplemental ranges: <140 mg/dL before meals <180 mg/dL all other times of the day Specimen Anatomical Collection Method Collection Time Receive d Time (Source) Location / / Volume Laterality Blood 12/11/2021 7:34 AM 2 7:34 EDT AM EDT Iker Cuevas MD POINT OF CARE TEST ORDERABLE S Performing Organization Address City/[facility]/[place] [address] (ABNORMAL) POCT Glucose (12/11/2021 5:07 AM EDT) P athologist Signature POC Glucose 208 (H) 65 - 199 [facility] mg/dL [facility] Comment: Supplemental ranges: <140 mg/dL before meals <180 mg/dL all other times of the day Specimen Anatomical Collection Method Collection Time Receive d Time (Source) Location / / Volume Laterality Blood 12/11/2021 5:07 AM 2 5:07 EDT AM EDT Iker Cuevas MD POINT OF CARE TEST ORDERABLE S Performing Organization Address City/[facility]/[place] [address] (ABNORMAL) Differential, Automated (12/11/2021 4:28 AM EDT) [facility] Method Time Signature Neutrophils % 79.6 % [facility] LABORATORY Neutr Abs (ANC) 7.01 (H) 1.70 - [facility] 6.10 [facility] x10(3)/[facility] L LABORATORY Lymphocytes % 9.1 % [facility]OR[facility] Lymphocytes Abs 0.8 (L) 0.9 - 3.2 [facility] x10(3)/[facility] LABORATORY Monocytes % 9.2 % [facility] Monocyte Abs 0.8 0.3 - 0.9 [facility] x10(3)/[facility] LABORATORY Eosinophils % 1.3 % [facility] Eosinophils Abs 0.1 0.0 - 0.4 [facility] x10(3)/[facility] LABORATORY Basophils % 0.5 % [facility]OR[facility] Basophils Abs 0.0 0.0 - 0.1 [facility] x10(3)/[facility] LABORATORY Immature Gran % 0.30 [...] Melisa Gran Abs 0.03 0.00 - 0.04 x10(3)/[facility] MAR Y [facility] LABORATORY Specimen Anatomical Collection Method Collection Time Receive d Time (Source) Location / / Volume Laterality Blood 12/11/2021 4:28 AM 4:37 EDT AM EDT Resulting Agency Comment Spec In Lab Bijan Sun MD HEMATOLOGY ORDERABLES Performing Organization Address City/State/[place] [address] (ABNORMAL) Hemogram (12/11/2021 4:28 AM EDT) Analysis Performed At Patho logist Time Signature WBC 8.8 4.0 - 9.5 [facility] x10(3)/[facility] LABORATORY RBC 4.15 (L) 4.58 - [facility] 5.54 [facility] x10(6)/[facility] LABORATORY Hemoglobin 11.9 (L) 13.7 - [facility] 16.5 g/dL [facility] LABORATORY Hematocrit 36.9 (L) 40.5 - [facility] 48.5 % [facility] LABORATORY MCV 88.9 82.9 - [facility] 93.1 [facility] LABORATORY MCH 28.7 27.5 - [facility] 32.[address] [facility] LABORATORY MCHC 32.2 32.0 - [facility] 35.7 g/dL [facility] LABORATORY Platelets 211 145 - 357 [facility] x10(3)/[facility] LABORATORY RDWSD 48.3 (H) 36.0 - [facility] 45.0 [facility] LABORATORY RDWCV 14.8 (H) 11.4 - [facility] 13.8 % [facility] LABORATORY MPV 9.6 7.6 - 12.9 [facility] LABORATORY nRBC % Auto 0.0 % [facility] LABORATORY nRBC Abs Auto 0.000 0.000 - [facility] 0.000 [facility] x10(3)/[facility] LABORATORY Specimen Anatomical Collection Method Collection Time Receive d Time (Source) Location / / Volume Laterality Blood 12/11/2021 4:28 AM 2 4:37 EDT AM EDT Resulting Agency Comment Spec In Lab Bijan Sun MD HEMATOLOGY ORDERABLES Performing Organization Address City/State/[place] [address] (ABNORMAL) Prothrombin Time (12/11/2021 4:28 AM EDT) P athologist Signature PT 17.7 (H) 9.4 - 12.5 [facility] LABORATORY INR 1.6 [facility] LABORATORY Comment: [...] Address City/State/[place] [address] (ABNORMAL) BMP w/fasting Glucose (12/11/2021 4:28 AM EDT) athologist Signature Glucose 207 (H) 65 - 99 [facility] Fasting mg/dL [facility] LABOR[facility]ORY Comment: ?Fasting* Glucose Interpretive C [...] of Diabetes Mellitus, Position Statement from the [place] [employer]. ??Diabete s Care, Volume 33, Supplement 1, Jul 2009 BUN 49 (H) 10 - 20 mg/dL [facility] LABORATORY Creatinine 1.43 0.80 - 1.50 [...] Cuevas MD CHEMISTRY ORDERABLES Performing Organization Address City/[facility]/[place] [address] Magnesium (12/11/2021 4:28 AM EDT) P athologist Signature Magnesium 1.04 0.69 - 1.07 [facility] mmol/L [facility] LABORATORY Specimen Anatomical Collection Method Collection Time Receive d Time (Source) Location / / Volume Laterality Blood 12/11/2021 4:28 AM 2 4:37 EDT AM EDT Resulting Agency Comment Spec In Lab Iker Cuevas MD CHEMISTRY ORDERABLES Performing Organization Address City/State/[place] [address] POCT Glucose (12/11/2021 3:58 AM EDT) athologist Signature POC Glucose 189 65 - 199 [facility] mg/dL [facility] LABOR[facility]ORY Comment: Supplemental ranges: <140 mg/dL before meals <180 mg/dL all other times of the day Specimen Anatomical Collection Method Collection Time Receive d Time (Source) Location / / Volume Laterality Blood 12/11/2021 3:58 AM 2 3:58 EDT AM EDT Iker Cuevas MD POINT OF CARE TEST ORDERABLE S Performing Organization Address City/State/[place] [address] (ABNORMAL) POCT Glucose (12/10/2021 11:45 PM EDT) athologist Signature POC Glucose 205 (H) 65 - 199 [facility] LABOR[facility]ORY Comment: Supplemental ranges: <140 mg/dL before meals <180 mg/dL all other times of the day Specimen Anatomical Collection Method Collection Time Receive d Time (Source) Location / / Volume Laterality Blood 12/10/2021 11:45 12/10/2021 PM EDT 11:45 PM EDT Iker Cuevas MD POINT OF CARE TEST ORDERABLE S Performing Organization Address City/State/[place] [address] (ABNORMAL) POCT Glucose (12/10/2021 7:54 PM EDT) athologist Signature POC Glucose 225 (H) 65 - 199 [facility] mg/dL [facility] LABOR[facility]ORY Comment: Supplemental ranges: <140 mg/dL before meals <180 mg/dL all other times of the day Specimen Anatomical Collection Method Collection Time Receive d Time (Source) Location / / Volume Laterality Blood 12/10/2021 7:54 PM 2 7:54 EDT PM EDT Iker Cuevas MD POINT OF CARE TEST ORDERABLE S Performing Organization Address City/State/[place] [address] Potassium (12/10/2021 7:46 PM EDT) athologist Signature Potassium 4.2 3.5 - 5.0 [facility] mmol/L [facility] LABOR[facility] Comment: Please note: ??Patients with [...] Organization Address City/State/[place] [address] (ABNORMAL) Basic Metabolic Panel (non-fasting) (12/10/2021 6:12 PM EDT) athologist Signature Glucose Lvl 246 (H) 65 - 199 [facility] mg/dL [facility] LABOR[facility]ORY Comment: Diabetes: >=200 mg/dL plus symp toms BUN 50 (H) 10 - 20 mg/dL [facility] LABORATORY Creatinine 1.39 0.80 - 1.50 mg/dL [facility] LABORATORY Sodium 138 135 - 145 mmol/L [facility] LABORATORY Potassium Not Perf 3.5 - 5.0 [facility] LABORATORY Comment: Unable to quantitate [...] Address City/State/[place] [address] POCT Glucose (12/10/2021 4:59 PM EDT) P athologist Signature POC Glucose 158 65 - 199 [facility] mg/dL [facility] LABOR[facility] Comment: Supplemental ranges: <140 mg/dL before meals <180 mg/dL all other times of the day Specimen Anatomical Collection Method Collection Time Receive d Time (Source) Location / / Volume Laterality Blood 12/10/2021 4:59 PM 2 4:59 EDT PM EDT Iker Cuevas MD POINT OF CARE TEST ORDERABLE S Performing Organization Address City/State/[place] [address] (ABNORMAL) POCT Glucose (12/10/2021 12:43 PM EDT) athologist Signature POC Glucose 241 (H) 65 - 199 [facility] mg/dL [facility] LABOR[facility]ORY Comment: Supplemental ranges: <140 mg/dL before meals <180 mg/dL all other times of the day Specimen Anatomical Collection Method Collection Time Receive d Time (Source) Location / / Volume Laterality Blood 12/10/2021 12:43 12/10/2021 PM EDT 12:43 PM EDT Iker Cuevas MD POINT OF CARE TEST ORDERABLE S Performing Organization Address City/State/ZIP Code Phon e Number [address] EKG 12 Lead (12/10/2021 11:17 AM EDT) Component Value Ref Range Test Analysis Performed Pathologis t Method Time At Signature Ventricular rate 62 BPM MUSE SYSTEM Atrial Rate 62 BPM MUSE SYSTEM P-R Interval 142 ms MUSE SYSTEM QRS Duration 100 ms MUSE SYSTEM Q-T Interval 434 ms MUSE SYSTEM QTC Calculated 440 ms MUSE SYSTEM (Bezet) Calculated P Biggers 34 degrees MUSE SYSTEM Calculated R Biggers -39 degrees MUSE SYSTEM Calculated T Biggers 92 degrees MUSE SYSTEM INTERPRETATION Normal sinus [...] Laterality Volume Narrative 12/10/2021 12:04 PM EDT ?[facility] ? Cardiac Cathete rization/Intervention Report ? Patient Name: Don Fatima. ? Procedure Date: 12/10/2021 ? A #: [id number] ? Primary Physician: Nobles, Vitaliy P ? Case #: [id number] ? File Name: [id number] ? Catheterization Order Number: [id number] ? [facility] ? Final Report [place], [place] ? Patient Name: ? Don E. Stewa rt ? ID#: ?[id number] ? : ?1945 ? Procedure Date: ? December 10, 2021 ? Case #: ? [id number] ? Room: ? 1 ? Case Physician: [...] was Urgent. The indication for ?the labor economics teacher visit is ACS great er than 24 [...] ?3.75 guiding catheter and a 3.[address] [place] [facility] [place] 20 Mhz using Manual ?pullback. ??Imaging was [...] ?3.75 guiding catheter and a 3.[address] 20 Mhz using Manual ?pullback. ??Imaging was [...] ?modification of this regimen. C [facility] Interventional Cardiology for ?questions. ?The [...] Don Fatima Procedure Date: 12/10/2021 A #: [id number] Primary Physician: Vitaliy Nobles Case #: [id number] File Name: [id number] Catheterization Order Number: [id number] [facility] Final Report [place], [place] Patient Name: Don Fatima ID#: [...] He has a prior history of coronary egorgie ry disease. The patient is status post [...] was Urgent. The indication for the labor economics teacher visit is ACS greater than 24 hrs [...] and a 3.5 Fr [place] [facility] [place] 20 Mhz using Manual pullback. Imaging was [...] and a 3.5 Fr [facility] [place] 20 Mhz using Manual pullback. Imaging was [...] of this regimen. Consult D [facility] Interventional Cardiology for questions. The 1 year [...] POC Glucose 262 (H) 65 - 199 [facility] LABORATORY Comment: Supplemental ranges: <140 mg/dL before meals <180 mg/dL all other times of the day Specimen Anatomical Collection Method Collection Time Receive d Time (Source) Location / / Volume Laterality Blood 12/10/2021 10:30 12/10/2021 AM EDT 10:30 AM EDT Iker Cuevas MD POINT OF CARE TEST ORDERABLE S Performing Organization Address City/[facility] [place] [address] (ABNORMAL) POCT Glucose (12/10/2021 9:48 AM EDT) athologist Signature POC Glucose 279 (H) 65 - 199 [facility] mg/dL [facility] LABORATORY Comment: Supplemental ranges: <140 mg/dL before meals <180 mg/dL all other times of the day Specimen Anatomical Collection Method Collection Time Receive d Time (Source) Location / / Volume Laterality Blood 12/10/2021 9:48 AM 9:48 EDT AM EDT Iker Cuevas MD POINT OF CARE TEST ORDERABLE S Performing Organization Address City/State/[place] [address] (ABNORMAL) POCT Glucose (12/10/2021 9:07 AM EDT) P athologist Signature POC Glucose 268 (H) 65 - 199 [facility] mg/dL [facility] LABOR[facility]ORY Comment: Supplemental ranges: <140 mg/dL before meals <180 mg/dL all other times of the day Specimen Anatomical Collection Method Collection Time Receive d Time (Source) Location / / Volume Laterality Blood 12/10/2021 9:07 AM 9:07 EDT AM EDT Iker Cuevas MD POINT OF CARE TEST ORDERABLE S Performing Organization Address City/State/[place] [address] (ABNORMAL) Point of Care Blood Gas Historical (12/10/2021 9:04 AM EDT) Patholo gist Method Time Signature POC pH 7.40 7.35 - [facility] 7.[address] [facility] LABORATORY POC PCO2 40 35 - 45 [facility] mmHg [facility] LABORATORY POC PO2 63 (L) 85 - 104 [facility] mmHg [facility] LABORATORY POC Base Excess 0.0 -3.0 - 3.0 [facility] K mmol/L [facility] LABORATORY POC HCO3 24.8 20.0 - [facility] 26.0 [facility] mmol/[facility] LABORATORY POC Sodium 143 135 - 145 [facility] mmol/L [facility] LABORATORY POC Potassium 3.7 3.5 - 5.0 [facility] mmol/L [facility] LABORATORY POC Ionized Ca 1.07 (L) 1.15 - [facility] 1.33 [facility] mmol/L HOSPITAL LABORATORY POC Hematocrit 30.0 (L) 40.0 - [facility] 51.0 % [facility] LABORATORY POC Calc Hgb 10.2 (L) 13.7 - [facility] 17.5 g/dL [facility] LABORATORY Comment: The calculation of hemoglobin f rom hematocrit assumes a normal MCHC. POC Bgas Loc CC LAB [facility] LABORATORY Specimen Anatomical Collection Method Collection Time Receive d Time (Source) Location / / Volume Laterality Blood 12/10/2021 9:04 AM 2 EDT 12:00 PM EDT Ifeanyi Truong MD CHEMISTRY ORDERABLES Performing Organization Address City/[facility]/ZIP Code Phon e Number [address] (ABNORMAL) POCT Glucose (12/10/2021 7:19 AM EDT) athologist Signature POC Glucose 274 (H) 65 - 199 [facility] mg/dL [facility] LABORATORY Comment: Supplemental ranges: <140 mg/dL before meals <180 mg/dL all other times of the day Specimen Anatomical Collection Method Collection Time Receive d Time (Source) Location / / Volume Laterality Blood 12/10/2021 7:19 AM 2 7:19 EDT AM EDT Iker Cuevas MD POINT OF CARE TEST ORDERABLE S Performing Organization Address City/[facility]/[place] [address] Heparin (unfractionated) Level (12/10/2021 [...] Organization Address City/State/[place] [address] [facility] LABOR[address] Drive (ABNORMAL) Differential, Automated (12/10/2021 4:25 AM EDT) [facility] Method Time Signature Neutrophils % 79.8 % [facility] LABORATORY Neutr Abs (ANC) 7.47 (H) 1.70 - [facility] 6.10 [facility] x10(3)/[facility] LABORATORY Lymphocytes % 10.6 % [facility] LABORATORY Lymphocytes Abs 1.0 0.9 - 3.2 [facility] x10(3)/[facility] LABORATORY Monocytes % 8.4 % [facility] LABORATORY Monocyte Abs 0.8 0.3 - 0.9 [facility] x10(3)/[facility] LABORATORY Eosinophils % 0.6 % [facility]ORATORY Eosinophils Abs 0.1 0.0 - 0.4 [facility] x10(3)/[facility] LABORATORY Basophils % 0.2 % [facility] LABORATORY Basophils Abs 0.0 0.0 - 0.1 [facility] x10(3)/[facility] LABORATORY Immature Gran % 0.40 [...] Melisa Gran Abs 0.04 0.00 - 0.04 x10(3)/[facility] LABORATORY Specimen Anatomical Collection Method Collection Time Receive d Time (Source) Location / / Volume Laterality Blood 12/10/2021 4:25 AM 4:34 EDT AM EDT Resulting Agency Comment Spec In Lab Morgan BROWN HEMATOLOGY ORDERABLES Performing Organization Address City/[facility]/[place] [address] (ABNORMAL) Hemogram (12/10/2021 4:25 AM EDT) Analysis Performed At Patho logist Time Signature WBC 9.4 4.0 - 9.5 [facility] x10(3)/[facility] LABORATORY RBC 3.81 (L) 4.58 - [facility] 5.54 [facility] x10(6)/[facility] LABORATORY Hemoglobin 11.1 (L) 13.7 - [facility] 16.5 g/dL [facility] LABORATORY Hematocrit 34.0 (L) 40.5 - [facility] 48.5 % [facility] LABORATORY MCV 89.2 82.9 - [facility] 93.1 [facility] LABORATORY MCH 29.1 27.5 - [facility] 32.[address] [facility] LABORATORY MCHC 32.6 32.0 - [facility] 35.7 g/dL [facility] LABORATORY Platelets 183 145 - 357 [facility] x10(3)/[facility] LABORATORY RDWSD 49.9 (H) 36.0 - [facility] 45.0 [facility] LABORATORY RDWCV 15.2 (H) 11.4 - [facility] 13.8 % [facility] LABORATORY MPV 9.8 7.6 - 12.9 [facility] LABORATORY nRBC % Auto 0.0 % [facility] LABORATORY nRBC Abs Auto 0.000 0.000 - [facility] 0.000 [facility] x10(3)/[facility] LABORATORY Specimen Anatomical Collection Method Collection Time Receive d Time (Source) Location / / Volume Laterality Blood 12/10/2021 4:25 AM 4:34 EDT AM EDT Resulting Agency Comment Spec In Lab Morgan BROWN HEMATOLOGY ORDERABLES Performing Organization Address City/State/ZIP Code Phon e Number [place] [id number]OSP[address] LAB[address]ORY Drive (ABNORMAL) Prothrombin Time (12/10/2021 4:25 AM EDT) P athologist Signature PT 20.0 (H) 9.4 - 12.5 [facility] LABORATORY INR 1.7 [facility] LABORATORY Comment: [...] Organization Address City/State/ZIP Code Phon e Number [place] [id number]OS[address] Drive (ABNORMAL) BMP w/fasting Glucose (12/10/2021 4:25 AM EDT) P athologist Signature Glucose 210 (H) 65 - 99 [facility] Fasting mg/dL [facility] LABORATORY Comment: ?Fasting* Glucose Interpretive C [...] of Diabetes Mellitus, Position Statement from the [place] [employer]. ??Diabete s Care, Volume 33, Supplement 1, Jul 2009 BUN 54 (H) 10 - 20 mg/dL [facility] LABORATORY Creatinine 1.52 (H) 0.80 - [...] mmol/L [facility] LABORATORY Calcium 8.0 (L) 8.5 - [...] Organization Address City/State/[place] [address] Magnesium (12/10/2021 4:25 AM EDT) P athologist Signature Magnesium 0.95 0.69 - 1.07 [facility] mmol/L [facility] LABORATORY Specimen Anatomical Collection Method Collection Time Receive d Time (Source) Location / / Volume Laterality Blood 12/10/2021 4:25 AM 2 4:34 EDT AM EDT Resulting Agency Comment Spec In Lab Iker Cuevas MD CHEMISTRY ORDERABLES Performing Organization Address City/State/[place] [address] POCT Glucose (12/10/2021 1:58 AM EDT) athologist Signature POC Glucose 164 65 - 199 [facility] mg/dL [facility] LABORATORY Comment: Supplemental ranges: <140 mg/dL before meals <180 mg/dL all other times of the day Specimen Anatomical Collection Method Collection Time Receive d Time (Source) Location / / Volume Laterality Blood 12/10/2021 1:58 AM 2 1:58 EDT AM EDT Iker Cuevas MD POINT OF CARE TEST ORDERABLE S Performing Organization Address City/[facility] Care [facility]/[place] [address] (ABNORMAL) POCT Glucose (12/09/2021 9:02 PM EDT) athologist Signature POC Glucose 313 (H) 65 - 199 [facility]dL [facility] Comment: Supplemental ranges: <140 mg/dL before meals <180 mg/dL all other times of the day Specimen Anatomical Collection Method Collection Time Receive d Time (Source) Location / / Volume Laterality Blood 12/09/2021 9:02 PM 2 9:02 EDT PM EDT Iker Cuevas MD POINT OF CARE TEST ORDERABLE S Performing Organization Address City/State/[place] [address] Heparin (unfractionated) Level (12/09/2021 [...] Organization Address City/State/[place] [address] (ABNORMAL) Basic Metabolic Panel (non-fasting) (12/09/2021 7:30 PM EDT) P athologist Signature Glucose Lvl 372 (H) 65 - 199 [facility] mg/dL [facility] Comment: Diabetes: >=200 mg/dL plus symp toms BUN 56 (H) 10 - 20 mg/dL [facility] Creatinine 1.75 (H) 0.80 - [...] Address City/State/[place] [address] (ABNORMAL) POCT Glucose (12/09/2021 6:34 PM EDT) P athologist Signature POC Glucose 408 (H) 65 - 199 [facility] Comment: Supplemental ranges: <140 mg/dL before meals <180 mg/dL all other times of the day Specimen Anatomical Collection Method Collection Time Receive d Time (Source) Location / / Volume Laterality Blood 12/09/2021 6:34 PM 2 6:34 EDT PM EDT Iker Cuevas MD POINT OF CARE TEST ORDERABLE S Performing Organization Address City/State/[place] [address] (ABNORMAL) POCT Glucose (12/09/2021 6:32 PM EDT) P athologist Signature POC Glucose 356 (H) 65 - 199 [facility] Comment: Supplemental ranges: <140 mg/dL before meals <180 mg/dL all other times of the day Specimen Anatomical Collection Method Collection Time Receive d Time (Source) Location / / Volume Laterality Blood 12/09/2021 6:32 PM 2 6:32 EDT PM EDT Iker Cuevas MD POINT OF CARE TEST ORDERABLE S Performing Organization Address City/[facility]/[place] [address] (ABNORMAL) POCT Glucose (12/09/2021 4:19 PM EDT) athologist Signature POC Glucose 347 (H) 65 - 199 [facility] mg/dL [facility] Comment: Supplemental ranges: <140 mg/dL before meals <180 mg/dL all other times of the day Specimen Anatomical Collection Method Collection Time Receive d Time (Source) Location / / Volume Laterality Blood 12/09/2021 4:19 PM 2 4:19 EDT PM EDT Iker Cuevas MD POINT OF CARE TEST ORDERABLE S Performing Organization Address City/[facility]/[place] [address] Heparin (unfractionated) Level (12/09/2021 [...] Cuevas MD HEMATOLOGY ORDERABLES Performing Organization Address City/[facility]/[place] [address] (ABNORMAL) POCT Glucose (12/09/2021 12:02 PM EDT) P athologist Signature POC Glucose 235 (H) 65 - 199 [facility] mg/dL [facility] Comment: Supplemental ranges: <140 mg/dL before meals <180 mg/dL all other times of the day Specimen Anatomical Collection Method Collection Time Receive d Time (Source) Location / / Volume Laterality Blood 12/09/2021 12:02 12/09/2021 PM EDT 12:02 PM EDT Iker Cuevas MD POINT OF CARE TEST ORDERABLE S Performing Organization Address City/[facility]/[place] [address] (ABNORMAL) POCT Glucose (12/09/2021 9:44 AM EDT) athologist Signature POC Glucose 214 (H) 65 - 199 [facility] Comment: Supplemental ranges: <140 mg/dL before meals <180 mg/dL all other times of the day Specimen Anatomical Collection Method Collection Time Receive d Time (Source) Location / / Volume Laterality Blood 12/09/2021 9:44 AM 9:44 EDT AM EDT Iker Cuevas MD POINT OF CARE TEST ORDERABLE S Performing Organization Address City/[facility]/[place] [address] EKG 12 Lead (12/09/2021 7:57 AM EDT) Component Value Ref Range Test Analysis Performed Pathologis t Method Time At Signature Ventricular rate 101 BPM MUSE SYSTEM Atrial Rate 101 BPM MUSE SYSTEM P-R Interval 150 ms MUSE SYSTEM QRS Duration 112 ms MUSE SYSTEM Q-T Interval 364 ms MUSE SYSTEM QTC Calculated 471 ms MUSE SYSTEM (Bezet) Calculated P Biggers 59 degrees MUSE SYSTEM Calculated R Biggers -42 degrees MUSE SYSTEM Calculated T Biggers 102 degrees MUSE SYSTEM INTERPRETATION Sinus tachycardia Occasional Premature ventricular com plexes MUSE SYSTEM Left axis deviation 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) Abnormal ECG When compared with ECG of 08-DEC-2021 16:40, Premature ventricular complexes are now Present Confirmed by MD Fernandez Danette ([id number]) on 12/10/2021 4:55:06 PM Specimen Anatomical Collection Method Collection Time Receive d Time (Source) Location / / Volume Laterality 12/09/2021 7:57 AM 2 4:55 EDT PM EDT Iker Cuevas MD ECG ORDERABLES Performing Organization Address City/State/ZIP Code Phon e Number MUSE SYSTEM (ABNORMAL) POCT Glucose (12/09/2021 7:28 AM EDT) P athologist Signature POC Glucose 263 (H) 65 - 199 [facility] mg/dL [facility] Comment: Supplemental ranges: <140 mg/dL before meals <180 mg/dL all other times of the day Specimen Anatomical Collection Method Collection Time Receive d Time (Source) Location / / Volume Laterality Blood 12/09/2021 7:28 AM 2 7:28 EDT AM EDT Iker Cuevas MD POINT OF CARE TEST ORDERABLE S Performing Organization Address City/State/[place] [address] (ABNORMAL) Hemoglobin A1c (12/09/2021 [...] Mellitus, Diabetes Care 2013; 36: Suppl. 1, L13-37 Est Avg Gluc See note mg/dL [facility] [...] into estimated average glucose values. ??Diabetes Care 2008:31(8):7168-8217. Specimen Anatomical Collection Method Collection Time Receive d Time (Source) Location / / Volume Laterality Blood Venous Draw / 12/09/2021 6:18 AM 12/10/19 22 Unknown EDT 12:24 PM EDT Resulting Agency Comment Spec In Lab Migdalia RBOWN CHEMISTRY ORDERABLES Performing Organization Address City/State/[place] [address] (ABNORMAL) Prothrombin Time (12/09/2021 6:18 AM EDT) athologist Signature PT 26.6 (H) 9.4 - 12.5 [facility] LABORATORY INR 2.3 [facility] Comment: [...] Resulting Agency Comment Spec In Lab Migdalia BORWN HEMATOLOGY ORDERABLES Performing Organization Address City/[facility]/ZIP Code Phon e Number [address] Heparin (unfractionated) Level (12/09/2021 [...] Cuevas MD HEMATOLOGY ORDERABLES Performing Organization Address City/[facility]/ZIP Code Phon e Number [address] (ABNORMAL) Differential, Automated (12/09/2021 6:18 AM EDT) Patholo gist Method Time Signature Neutrophils % 91.5 % [facility] Neutr Abs (ANC) 15.78 (H) 1.70 - [facility] 6.10 [facility] x10(3)/[facility] L LABORATORY Lymphocytes % 2.9 % [facility] Lymphocytes Abs 0.5 (L) 0.9 - 3.2 [facility] x10(3)/[facility] LABORATORY Monocytes % 4.9 % [facility] Monocyte Abs 0.8 0.3 - 0.9 [facility] x10(3)/[facility] LABORATORY Eosinophils % 0.0 % [facility] Eosinophils Abs 0.0 0.0 - 0.4 [facility] x10(3)/[facility] LABORATORY Basophils % 0.2 % [facility] Basophils Abs 0.0 0.0 - 0.1 [facility] x10(3)/[facility] LABORATORY Immature Gran % 0.50 [...] Organization Address City/State/Z[place] [address] (ABNORMAL) Hemogram (12/09/2021 6:18 AM EDT) Analysis Performed At Patho logist Time Signature WBC 17.2 (H) 4.0 - 9.5 [facility] x10(3)/[facility] LABORATORY RBC 4.32 (L) 4.58 - [facility] 5.54 [facility] x10(6)/[facility] LABORATORY Hemoglobin 12.6 (L) 13.7 - [facility] 16.5 g/dL [facility] Hematocrit 38.9 (L) 40.5 - [facility] 48.5 % [facility] MCV 90.0 82.9 - [facility] 93.1 [facility] LABORATORY MCH 29.2 27.5 - [facility] 32.[address] [facility] MCHC 32.4 32.0 - [facility] 35.7 g/dL [facility] Platelets 193 145 - 357 [facility] x10(3)/[facility] LABORATORY RDWSD 50.4 (H) 36.0 - [facility] 45.0 [facility] LABORATORY RDWCV 15.2 (H) 11.4 - [facility] 13.8 % [facility] MPV 9.5 7.6 - 12.9 [facility] LABORATORY nRBC % Auto 0.0 % [facility] nRBC Abs Auto 0.000 0.000 - [facility] SU 0.000 [facility] x10(3)/[facility] LABORATORY Specimen Anatomical Collection Method Collection Time Receive d Time (Source) Location / / Volume Laterality Blood 12/09/2021 6:18 AM 6:33 EDT AM EDT Resulting Agency Comment Spec In Lab Morgan BROWN HEMATOLOGY ORDERABLES Performing Organization Address City/State/[place] [address] Lipid Panel (Reflex Direct LDL) (12/09/2021 6:18 AM EDT) P athologist Signature Chol, Total 105 mg/dL [facility] Comment: Lower Risk: <200 mg/dL Average Risk: 200-239 mg/dL Higher Risk: >wf=261 mg/dL Triglycerides 133 mg/dL [facility] Comment: Average Risk/Lower Risk: <150 mg/dL Borderline High Risk: 150-199 mg/dL High Risk: 200-499 mg/dL Very High Risk: >cn=861 mg/dL HDL 42 mg/dL [facility] LABORATORY Comment: Males: ?? Higher Risk: <40 mg/dL Females: ?? Higher Risk: <50 mg/dL LDL Cholesterol 36 mg/dL [facility] Comment: Lowest Risk: <100 mg/dL Lower Risk: 100-129 mg/dL Borderline High Risk: 130-159 mg/dL High Risk: 160-189 mg/dL Very High Risk: >ou=160 mg/dL Chol/HDL Ratio 2.5 ratio [facility] Lipid Interpretation See Note [facility] Comment: Lipid management should be guided by a p atient? s ASCVD risk, goals and preferences. ACC/AHA Guidelines recommend high intens ity statin if clinical ASCVD or LDL greater than or equal to 190 mg/dL. http://Web Wonks.com/UIU-LAL-Qsjojnxbx Adults aged 40-75 with LDL 70-189 mg/dL should have their 10 year ASCVD risk estimated with the ACC/AHA ASCVD risk es timator http://tools.acc.org/IWNYA-Lirq-Cuihefxw r/ Statin should be discussed if risk [...] Organization Address City/State/[place] [address] TSH (12/09/2021 6:18 AM EDT) athologist Signature TSH 1.60 0.27 - 4.20 [facility] mcIU/mL [facility] Comment: Reference Interval (mcIU/mL): Females: ??First Trimester: 0.23-3.88 ??Second Trimester: 0.22-3.90 ??Third Trimester: 0.44-4.66 Specimen Anatomical Collection Method Collection Time Receive d Time (Source) Location / / Volume Laterality Blood 12/09/2021 6:18 AM 2 6:33 EDT AM EDT Resulting Agency Comment Spec In Lab Iker Cuevas MD CHEMISTRY ORDERABLES Performing Organization Address City/[facility]/[place] [address] Hepatic Function Panel (12/09/2021 6:18 AM EDT) P athologist Signature Total Protein 7.3 6.1 - 8.0 [facility] g/dL [facility] Albumin 4.2 3.2 - 5.2 [facility] g/dL [facility] AST 25 0 - 39 [facility] SU unit/L [facility] ALT 15 0 - 55 [facility] unit/L [facility] Alk Phos 75 40 - 130 [facility] unit/L [facility] Total 1.1 0.2 - 1.3 [facility] Bilirubin mg/dL [facility] Bili, Direct 0.2 0.0 - 0.3 [facility] mg/dL [facility] Specimen Anatomical Collection Method Collection Time Receive d Time (Source) Location / / Volume Laterality Blood 12/09/2021 6:18 AM 2 6:33 EDT AM EDT Resulting Agency Comment Spec In Lab Iker Cuevas MD CHEMISTRY ORDERABLES Performing Organization Address City/[facility]/[place] [address] (ABNORMAL) BMP w/fasting Glucose (12/09/2021 6:18 AM EDT) P athologist Signature Glucose 235 (H) 65 - 99 [facility] Fasting mg/dL [facility] Comment: ?Fasting* Glucose Interpretive C [...] of Diabetes Mellitus, Position Statement from the [place] [employer]. ??Diabete s Care, Volume 33, Supplement 1, Jul 2009 BUN 49 (H) 10 - 20 mg/dL [facility] Address City/State/ZIP Code Phon e Number [address] Magnesium (12/09/2021 6:18 AM EDT) P athologist Signature Magnesium 0.81 0.69 - 1.07 [facility] mmol/L [facility] Specimen Anatomical Collection Method Collection Time Receive d Time (Source) Location / / Volume Laterality Blood 12/09/2021 6:18 AM 2 6:33 EDT AM EDT Resulting Agency Comment Spec In Lab Iker Cuevas MD CHEMISTRY ORDERABLES Performing Organization Address City/[facility]/ZIP [facility] [place] [place] [address] (ABNORMAL) Troponin (12/09/2021 6:18 AM EDT) athologist Signature Troponin-T 1.13 (H) 0.00 - [facility] 0.00 ng/mL [facility] Comment: The 99th percentile for [...] additional sample may be indicated. Reference: Third [place] Definition of Myocardial Infarction. Journal of the [place] [employer] 2012;60:1581-98 Specimen Anatomical Collection Method Collection Time Receive d Time (Source) Location / / Volume Laterality Blood 12/09/2021 6:18 AM 2 6:33 EDT AM EDT Resulting Agency Comment Spec In Lab Iker Cuevas MD CHEMISTRY ORDERABLES Performing Organization Address City/State/ZIP Code Phon e Number [place] [id number] HOSPITAL LABOR[address]ORY Drive XR Chest One View [...] [facility] 7.[address] [facility] pCO2 Art 36 35 - 45 [facility] mmHg [facility] pO2 Art 67 (L) 85 - 104 [facility] mmHg [facility] HCO3 Art 23.4 20.0 - [facility] 26.0 [facility] mmol/L [facility] LAB[facility] BE Art -0.9 -3.0 - 3.0 [facility] mmol/L [facility] Hgb Blood Gas 13.2 (L) 13.7 - [facility] 16.5 g/dL [facility] O2HB Art 91.3 (L) 94.0 - [facility] 97.0 % [facility] COHB Art 0.4 % [facility] Comment: Nonsmokers: 0.5-1.5% COHB Smokers: Variable, but usually less than 10% Toxic: 20-30% COHB Lethal: Greater than 60% COHB METHB Art 0.4 <=1.5 % [facility] [...] Bld 223 (H) 65 - 199 mg/dL [facility]ATORY Comment: Diabetes: >=200 mg/dL plus symp toms. Lactate WB 2.7 (H) 0.5 - 2.2 mmol/L [facility] FIO2 Art 35 % [facility] LABORATORY Flow Art 8.0 LPM [facility] LABORATORY PF Ratio Art 191 [facility] LABORATORY Specimen Anatomical Collection Method Collection Time Receive d Time (Source) Location / / Volume Laterality Blood 12/09/2021 5:14 AM 2 5:14 EDT AM EDT Iker Cuevas MD CHEMISTRY ORDERABLES Performing Organization Address City/State/Z[place] [address] POCT Glucose (12/09/2021 4:46 AM EDT) athologist Signature POC Glucose 198 65 - 199 [facility] mg/dL [facility] Comment: Supplemental ranges: <140 mg/dL before meals <180 mg/dL all other times of the day Specimen Anatomical Collection Method Collection Time Receive d Time (Source) Location / / Volume Laterality Blood 12/09/2021 4:46 AM 2 4:46 EDT AM EDT Iker Cuevas MD POINT OF CARE TEST ORDERABLE S Performing Organization Address City/State/[place] [address] (ABNORMAL) POCT Glucose (12/09/2021 3:01 AM EDT) athologist Signature POC Glucose 225 (H) 65 - 199 [facility] mg/dL [facility] Comment: Supplemental ranges: <140 mg/dL before meals <180 mg/dL all other times of the day Specimen Anatomical Collection Method Collection Time Receive d Time (Source) Location / / Volume Laterality Blood 12/09/2021 3:01 AM 2 3:01 EDT AM EDT Iker Cuevas MD POINT OF CARE TEST ORDERABLE S Performing Organization Address City/State/[place] [address] (ABNORMAL) POCT Glucose (12/08/2021 10:55 PM EDT) athologist Signature POC Glucose 327 (H) 65 - 199 [facility] mg/dL [facility] Comment: Supplemental ranges: <140 mg/dL before meals <180 mg/dL all other times of the day Specimen Anatomical Collection Method Collection Time Receive d Time (Source) Location / / Volume Laterality Blood 12/08/2021 10:55 12/08/2021 PM EDT 10:55 PM EDT Iker Cuevas MD POINT OF CARE TEST ORDERABLE S Performing Organization Address City/State/[place] [address] Heparin (unfractionated) Level (12/08/2021 10:03 PM EDT) P athologist Signature Heparin UFH 0.18 IU/mL [place] [...] Organization Address City/State/[place] [address] (ABNORMAL) Troponin (12/08/2021 10:03 PM EDT) P athologist Signature Troponin-T 0.92 (H) 0.00 - [facility] 0.00 ng/mL [facility] Comment: The 99th percentile for [...] additional sample may be indicated. Reference: Third [place] Definition of Myocardial Infarction. Journal of the [place] [employer] 2012;60:1581-98 Specimen Anatomical Collection Method Collection Time Receive d Time (Source) Location / / Volume Laterality Blood 12/08/2021 10:03 12/08/2021 PM EDT 10:31 PM EDT Resulting Agency Comment Spec In Lab Iker Cuevas MD CHEMISTRY ORDERABLES Performing Organization Address City/State/[place] [address] (ABNORMAL) POCT Glucose (12/08/2021 8:22 PM EDT) athologist Signature POC Glucose 429 (H) 65 - 199 [facility] mg/dL [facility] Comment: Supplemental ranges: <140 mg/dL before meals <180 mg/dL all other times of the day Specimen Anatomical Collection Method Collection Time Receive d Time (Source) Location / / Volume Laterality Blood 12/08/2021 8:22 PM 2 8:22 EDT PM EDT Iker Cuevas MD POINT OF CARE TEST ORDERABLE S Performing Organization Address City/[facility]/[place] [address] (ABNORMAL) POCT Glucose (12/08/2021 7:06 PM EDT) P athologist Signature POC Glucose 442 (H) 65 - 199 [facility] SU mg/dL [facility] Comment: Supplemental ranges: <140 mg/dL before meals <180 mg/dL all other times of the day Specimen Anatomical Collection Method Collection Time Receive d Time (Source) Location / / Volume Laterality Blood 12/08/2021 7:06 PM 2 7:06 EDT PM EDT Iker Cuevas MD POINT OF CARE TEST ORDERABLE S Performing Organization Address City/[facility]/[place] [address] Magnesium (12/08/2021 6:02 PM EDT) athologist Signature Magnesium 0.86 0.69 - 1.07 [facility] mmol/L [facility]ORY Specimen Anatomical Collection Method Collection Time Receive d Time (Source) Location / / Volume Laterality Blood 12/08/2021 6:02 PM 6:36 EDT PM EDT Resulting Agency Comment Spec In Lab Iker Cuevas MD CHEMISTRY ORDERABLES Performing Organization Address City/State/[place] [address] (ABNORMAL) Basic Metabolic Panel (non-fasting) (12/08/2021 6:02 PM EDT) athologist Signature Glucose Lvl 392 (H) 65 - 199 [facility] mg/dL [facility] Comment: Diabetes: >=200 mg/dL plus symp toms BUN 41 (H) 10 - 20 mg/dL [facility]ORY Creatinine 1.44 0.80 - 1.50 [...] Organization Address City/State/ZIP Code Phon e Number [place] [id number] HOSPITAL LAB[address]ORY Drive (ABNORMAL) Differential, Automated (12/08/2021 6:02 PM EDT) [facility] gist Method Time Signature Neutrophils % 89.5 % [facility]ORATORY Neutr Abs (ANC) 13.97 (H) 1.70 - [facility] 6.10 [facility] x10(3)/[facility] L LABORATORY Lymphocytes % 3.7 % [facility] Lymphocytes Abs 0.6 (L) 0.9 - 3.2 [facility] x10(3)/[facility] LABORATORY Monocytes % 6.1 % [facility] Monocyte Abs 1.0 (H) 0.3 - 0.9 [facility] x10(3)/[facility] LABORATORY Eosinophils % 0.0 % [facility] Eosinophils Abs 0.0 0.0 - 0.4 [facility] x10(3)/[facility] LABORATORY Basophils % 0.2 % [facility] Basophils Abs 0.0 0.0 - 0.1 [facility] x10(3)/[facility] LABORATORY Immature Gran % 0.50 [...] Organization Address City/State/[place] [address] (ABNORMAL) Hemogram (12/08/2021 6:02 PM EDT) Analysis Performed At Patho logist Time Signature WBC 15.6 (H) 4.0 - 9.5 [facility] x10(3)/[facility] LABORATORY RBC 4.05 (L) 4.58 - [facility] SU 5.54 [facility] x10(6)/[facility] LABORATORY Hemoglobin 11.8 (L) 13.7 - [facility] 16.5 g/dL [facility] LABORATORY Hematocrit 35.8 (L) 40.5 - [facility] 48[facility] % [facility] LABORATORY MCV 88.4 82.9 - [facility] 93.1 [facility] LABORATORY MCH 29.1 27.5 - [facility] SU 32.[address] [facility] MCHC 33.0 32.0 - [facility] 35.7 g/dL [facility] Platelets 178 145 - 357 [facility] x10(3)/[facility] LABORATORY RDWSD 49.3 (H) 36.0 - [facility] SU 45.0 [facility] LABORATORY RDWCV 15.1 (H) 11.4 - [facility] SU 13.8 % [facility] LABORATORY MPV 10.4 7.6 - 12.9 [facility] LABORATORY nRBC % Auto 0.0 % [facility]OR[facility] nRBC Abs Auto 0.000 0.000 - [place] [facility] 0.000 [facility] x10(3)/[facility] LABORATORY Specimen Anatomical Collection Method Collection Time Receive d Time (Source) Location / / Volume Laterality Blood 12/08/2021 6:02 PM 2 6:36 EDT PM EDT Resulting Agency Comment Spec In Lab Morgan BROWN HEMATOLOGY ORDERABLES Performing Organization Address City/State/ZIP Code Phon [place] [address] (ABNORMAL) Troponin (12/08/2021 6:02 PM EDT) P athologist Signature Troponin-T 0.89 (H) 0.00 - [place] 0.00 ng/mL [facility] LABORATORY Comment: The 99th percentile for [...] additional sample may be indicated. Reference: Third [place] Definition of Myocardial Infarction. Journal of the [place] [employer] 2012;60:1581-98 Specimen Anatomical Collection Method Collection Time Receive d Time (Source) Location / / Volume Laterality Blood 12/08/2021 6:02 PM 2 6:36 EDT PM EDT Resulting Agency Comment Spec In Lab Iker Cuevas MD CHEMISTRY ORDERABLES Performing Organization Address City/State/ZIP Code Phon e Number [facility] [place] [address] COVID-19 PCR (12/08/2021 5:00 PM EDT) [facility] Method Time Signature SARS-CoV-2 Not Detected Not Detected BARBARA RNA PCR [facility] LABORATORY Comment: This result should [...] using the Simplexa COVID-19 Direct Assay by [employer] marcum as authorized by the FDA issued [...] Department of Pathology and Laboratory Medicine at [facility], certified under the Clinical Laboratory Improvement [...] fact sheets at the following FDA website: https://www.fda.gov/medical-devices/ofnggvtfpwn-vwbyjrq-8535-vkcvc-94-ztflzeftw- uao-pbzfmyppncqovp-cawpqyr-devices/emmpc-xubjiulreaj-khih SARS-CoV-2 Source SEARCH ENGINE OPTIMIZATION ANALYST [facility] LABORATORY Specimen (Source) Anatomical Collection Method Collection Time Re ceived Time Location / / Volume Laterality Nasopharyngeal Swab 12/08/2021 5:00 12/08 PM EDT 6:03 PM EDT Comment: Symptoms->Surveillance Resulting Agency Comment Spec In Lab Iker Cuevas MD MICROBIOLOGY - GENERAL ORDER [place] Performing Organization Address [facility] Phon e Number [place] [phone] EKG 12 Lead (12/08/2021 4:40 PM EDT) Component Value Ref Range Test Analysis Performed Pathologis t Method Time At Signature Ventricular rate 78 BPM MUSE SYSTEM Atrial Rate 78 BPM MUSE SYSTEM P-R Interval 152 ms MUSE SYSTEM QRS Duration 96 ms MUSE SYSTEM Q-T Interval 396 ms MUSE SYSTEM QTC Calculated 451 ms MUSE SYSTEM (Bezet) Calculated P Biggers 44 degrees MUSE SYSTEM Calculated R Biggers -31 degrees MUSE SYSTEM Calculated T Biggers 124 degrees MUSE SYSTEM INTERPRETATION Normal sinus [...] Cuevas MD ECG ORDERABLES Performing Organization Address [facility] Phon e Number MUSE SYSTEM (ABNORMAL) POCT Glucose (12/08/2021 4:34 PM EDT) P athologist Signature POC Glucose 400 (H) 65 - 199 [place] mg/dL [facility] LABORATORY Comment: Supplemental ranges: <140 mg/dL before meals <180 mg/dL all other times of the day Specimen Anatomical Collection Method Collection Time Receive d Time (Source) Location / / Volume Laterality Blood 12/08/2021 4:34 PM 4:34 EDT PM EDT Iker Cuevas MD POINT OF CARE TEST ORDERABLE S Performing Organization Address City/State/[place] [address] documented in this encounter [...] Coronary atherosclerosis of unspecified type of vessel, [place] or graft Cardiomyopathy, ischemic Other specified [...] 0735 (Given - Provider: Emma Garcia RN)0805 ([facility] Hold - Provider: Admin Adt - Reason: Transfer to a Procedural area)0900 (Not Given - Provider: Emma Garcia RN - Reason: See comment - Comment: given before cath) 0835 (Given - Provider: Emma Garcia RN) 0829 (Given - Provider: Lilliana Esteban, VAMSI) 40 mg, Oral, DAILY, First dose on Wed at 1830, Until Discontinued, DO NOT CRUSH OR OPEN, Routine 1230 ([facility] Unhold - Provider: Admin Adt) polyethylene [...] - Reason: Transfer to a Procedural area)1230 ([facility] Unhold - Provider: Admin Adt) 10 mg, Rectal, DAILY PRN, Starting on 12/09/21 at 1629, Until Wed12/12/21 at 1312, Constipation, Routine dextrose 10% infusion(Linked Group 2) 08 ([facility] Hold - Provider: Admin Adt - Reason: Transfer to a Procedural area)1230 ([facility] Unhold - Provider: Admin Adt) 250 [...] solution 1 mg( Linked Group 2) 08 ([facility] Hold - Provider: Admin Adt - Reason: Transfer to a Procedural area)1230 ([facility] Unhold - Provider: Admin Adt) 1 mg, [...] (Glutose) 40% oral geL(Linked Group 2) 0805 ([facility] Hold - Provider: Admin Adt - Reason: Transfer to a Procedural area)1230 ([facility] Unhold - Provider: Admin Adt) 15-30 [...] (Intra-Procedure), Routine niCARdipine (Cardene) (100 mcg/mL) dilution (ELECTRICAL TECH/PROJECT MANAGER) (CANCELED) 1030 (Given - Provider: Vitaliy [...] - Reason: Transfer to a Procedural area)1230 ([facility] Unhold - Provider: Admin Adt) 5-20 mL, [...] episode. & nbsp; For persistent hypoglycemia, con driver sales longer-acting treatment for the duration of the [...]
Routine documented in this encounter Care Teams Preflight Inspector Relationship Specialty Start Date End Date Lovely Vicente MD PCP - General 04/16/[address] [place] [address] documented as of this encounter
--- OUTSIDE RECORDS SUMMARY | 2022-04-08 08:47 | XMS_ITS | Encounter Summary ---
:1945 Author Organization [facility] [place] [address] Care Team Providers Name Role Phone Lovely Vicente MD Primary Care Provider Reason for Visit Auth/Cert Specialty Diagnoses / Procedures Referred By Contact Refer red To Contact Diagnoses NSTEMI Procedures emerg ipi Referral ID Status Reason Start Date Expiration Date Visits Requ ested Visits Authorized [id number] 1 1 Encounter Details Date Type Department Care Team Description 12/10/2021 Surgery Regional Safety Manager Asa Coulter MD CARDIAC CATHETERIZATION [facility] [place] [address] [place] [address] [phone] (Wo rk) Social History Tobacco Use Types [...] Don Fatima Patient Age: 76 y.o. Language: Puerto Rican Race: White Ethnicity: Not nor Admit date: [...] Peter PA-C Kelly LaFlamme PA-C Cardiovascular Medicine [phone] Discharge Diagnoses (Hospital Problems) and Secondary Diagnoses [...] 3.75 guiding catheter and a 3.5 Fr Te-Moak Eye Quechan 20 Mhz using Manual pullback. Imaging was successful. Image quality was good. The ostial LCX showed moderate diffuse atherosclerotic plaque with scattered three quadrant calcification. Measurements were performed after pre-dilation. Post Intervention: The stent was well expanded and apposed. Intravascular Ultrasound was performed in the distal LM using a 7 Fr EBU 3.75 guiding catheter and a 3.5 Fr Te-Moak Eye Quechan 20 Mhz using Manual pullback. Imaging was [...] may require modification of this regimen. Consult [facility] Interventional Cardiology for questions. The [...] congestion and cardiomegaly. ?? TTE from [facility] 12/08/21 ? Prior Cardiac Studies: TTE [...] thyroidectomy in 2012 who presented to [facility] with 1 week progressing breathlessness with [...] with Liz Poole PA-C. ?? At [facility], respiratory distress with hypoxia 86% on [...] 07/2019 ->35% 11/2021) # Ischemic cardiomyopathy Don Faitma??is a 76 y.o.??male??with h/o??CAD s/p 3vCABG (THOMPSON-LAD, [...] and diet drinks did not cause his CT. This is what his thought was the case. Patient to see PCP in a week, Dr. De Oliveria and Dr. Nobles in the future. Plans [...] appointments: During 8am-5pm Wednesday through Wednesday call [phone] to speak with a nurse in the cardiology clinic All other times call [phone] and ask to speak to the rivet tapping machine operator legal operations manager. Return to work: One week Driving: No driving for 48 hours after catheterization. Follow up Appointments: PCP Lovely Vicente MD [phone] to see patient at the end of December for annual check up. Patient to see Dr. Lorenzana at 1120 am at December 19 for a post hospital check up. Automatic Tire Tester Dr. De Oliveira to see you in [facility]. Left a message for office to set a date and time. Please call [phone] Nobles to see the patient for a same day cath in 2-3 weeks from now. Office to call with a date and time. For questions please call [phone] Home oxygen therapy: N/A Arrangements for VNA/home care: none Future Appointments and Orders Future Orders Complete By Expires Basic Metabolic Panel (non-fasting) [LAB15 Custom] 12/19/2021 (Approximate) 12/12/2022 Process Instructions: INCLUDES: Calcium, BUN, Creat, GFR, Glucose, Lytes Scheduling Instructions: Comments: Questions: Referral to Cardiac Rehab [[id number] Custom] As directed Process Instructions: If no [...] appointments: During 8am-5pm Wednesday through Wednesday call [phone] to speak with a nurse in the cardiology clinic All other times call [phone] and ask to speak to the rivet tapping machine operator legal operations manager. Return to work: One week Driving: No driving for 48 hours after catheterization. Follow up Appointments: PCP Lovely Vicente MD [phone] to see patient at the end of December for annual check up. Patient to see Dr. Lorenzana at 1120 am at December 19 for a post hospital check up. Automatic T[employer] Tester Dr. De Oliveira to see you in [facility]. Left a message for office to set a date and time. Please call [phone] Nobles to see the patient for a same day cath in 2-3 weeks from now. Office to call with a date and time. For questions please call [phone] Home oxygen therapy: N/A Arrangements for VNA/home [...] Progress Note Patient Name: Don Fatima Service: BI REPORT DEVELOPER / PA Responsible Attending: Ifeanyi Truong MD [...] given Lasix 80mg IV x1 in label fuser tender. Tolerated procedure well. Home today at 11 [...] vascular congestion and cardiomegaly. TTE from [facility] 12/08/21 Prior Cardiac Studies: TTE 07/28/2019 [...] with MD Janneth Neville PA 12/12/2021 Pager [phone] Associated attestation - Ifeanyi Truong MD - [...] ratio for each meal) Desirae Jett APRN [facility] Endocrinology Diabetes Management Pager [phone] 20 minutes of this 35 minute visit [...] Progress Note Patient Name: Don Fatima Service: BI REPORT DEVELOPER / PA Responsible Attending: Iker Cuevas MD [...] + trop. Known CAD with hx of CT and CABG. DM. MARIA VICTORIA.ICM. ??? ASHD [...] given Lasix 80mg IV x1 in label fuser tender. Tolerated procedure well. Review of Systems: Review [...] Intake/Output Summary (Last 24 hours) at 12/11/2021 0998 Last data filed at 12/11/2021 0508 Gross [...] vascular congestion and cardiomegaly. TTE from [facility] 12/08/21 Prior Cardiac Studies: TTE 07/28/2019 [...] and answered his questions. Iker Cuevas MD [facility] Total time spent on review of records prior to visit, face to face time with patient during visit, documentation, and coordination of care with other clinicians: 25 minutes. . Iker Cuevas MD - 12/10/2021 12:30 PM EDT Images from the original note were not included. Inpatient Cardiology Progress Note Patient Name: Don Fatima Service: BI REPORT DEVELOPER / PA Responsible Attending: Iker Cuevas MD Reason for continued hospitalization: NSTEMI- s/p R/LHC- PCW 27, occluded SVGs s/p PCI to ostial LCX ADHF and hypoxia- IV diuresis Active Problems: Active Hospital Problems Diagnosis ??? Admitted with 2 days of sob, hypoxemia, and + trop. Known CAD with hx of CT and CABG. DM. MARIA VICTORIA.ICM. ??? ASHD [...] given Lasix 80mg IV x1 in label fuser tender. Tolerated procedure well. Review of Systems: Review [...] vascular congestion and cardiomegaly. TTE from [facility] 12/08/21 Prior Cardiac Studies: TTE 07/28/2019 [...] Discussed with MD Migdalia Peter PA-C Pager #[phone] 12/10/2021 Cardiology Attending Note I have seen [...] updated and given pictures. Iker Cuevas MD [facility] Total time spent on review of records prior to visit, face to face time with patient during visit, documentation, and coordination of care with other clinicians: 35 minutes. Iker Cuevas MD - 12/09/2021 7:28 AM EDT Images from the original note were not included. Inpatient Cardiology Progress Note Patient Name: Don Fatima Service: BI REPORT DEVELOPER / PA Responsible Attending: Iker Cuevas MD Reason for continued hospitalization: NSTEMI- awaiting R/LHC ADHF and hypoxia- IV diuresis, R/LHC Active Problems: Active Hospital Problems Diagnosis ??? Admitted with 2 days of sob, hypoxemia, and + trop. Known CAD with hx of CT and CABG. DM. MARIA VICTORIA.ICM. ??? ASHD [...] vascular congestion and cardiomegaly. TTE from [facility] 12/08/21 Prior Cardiac Studies: TTE 07/28/2019 [...] Discussed with MD Migdalia Peter PA-C Pager #[phone] 12/09/2021 Cardiology Attending Note I have seen and examined the patient. I agree with the findings above. Developed CHF early this am despite getting more iv lasix last evening. Feeling better now. INR > 2. Lungs still wet at base. Echo at [facility] showed EF 35% with mild mod MR slightly lower than last value here. -vit K 2.5 orally to facilitate correction of INR- this will take 12-24 hours to take effect -furosemide 80 mg iv now -postpone right and left heart cath until tomorrow given INR and ADHF -increase statin to achieve LDL < 70 -CPAP tonight Iker Cuevas MD [facility] Total time spent on review of [...] + trop. Known CAD with hx of CT and CABG. DM. MARIA VICTORIA.ICM. ??? ASHD [...] thyroidectomy in 2012 who presented to [facility] with 1 week progressing breathlessness with [...] 03/2021 with Liz Poole PA-C. At [facility], respiratory distress with hypoxia 86% on [...] SETUP performed by Manny Mcknight MD at [facility] MAIN OR ??? PRO AMPUTATION FOOT, TRANSMETATARSAL Right 08/09/2017 AMPUTATION, TRANSMETATARSAL (WRVU 12.71) performed by Yonathan Smith MD at [facility] MAIN OR ??? PRO CABG, ARTERIAL, SINGLE N/A 07/07/2017 @CABG, USING ARTERIAL GRAFT;SINGLE ARTERIAL GRAFT (WRVU 33.75) performed by Yuan Retana MD at [facility] MAIN OR ??? PRO CABG, ARTERY-VEIN, TWO N/A 07/07/2017 @CABG, TWO VENOUS GRAFTS & ARTERIAL GRAFT (WRVU 7.93) performed by Yuan Retana MD at [facility] MAIN OR ??? PRO COLONOSCOPY, REMV LESN, SNARE 01/16/2014 COLONOSCOPY, POLYPECTOMY, REMOVAL LESION BY SNARE performed by Nohemi Jaimes MD at [facility] ENDOSCOPY ??? PRO DRESSING CHANGE UNDER ANESTHESIA Right 08/11/2017 (MSURG) DRESSING CHANGE (FOR OTHER THAN IVAN) UNDER ANES. (WRVU 0.86) performed by Lamar Smith MD at [facility] MAIN OR ??? PRO ENDOSCOPY W/VIDEO-ASST VEIN HARVEST, CABG Right 07/07/2017 ENDOSCOPIC HARVEST VEIN(S) FOR CABG (WRVU 0.31) performed by Yuan Retana MD at [facility] MAIN OR ??? PRO THYROIDECTOMY 03/28/2013 THYROIDECTOMY, TOTAL OR COMPLETE performed by Manny Mcknight MD at [facility] MAIN OR Significant Family History: [...] 65 - 199 mg/dL Labs at [facility] 12/08/2021-troponin I 8004 (UN L <60), [...] Monitor for ADRs. Trend troponins. Admission EKG. [facility] 12/09; consented. TTE. Telemetry monitoring, daily [...] code #Diet-carb control; n.p.o. after midnight for [facility] #DVT prophy- heparin infusion #GI prophy- PPI Discussed with MD Morgan Peter PA-C APP2 pager [phone] 12/08/2021 Cardiology Attending Note I have seen [...] 1 due to graft or [place] coronary stenosis vs acute injury from CHF. 3. PAF: currrently in NSR. Have replaced warfarin with heparin 4. PAD: stable 5. DM: stable 6. CKD: will monitor and minimize contrast. Pt very appreciative of Dr. Yuan Retana's care in 2018. Will let him know patient is here. Iker Cuevas MD [facility] documented in this encounter Miscellaneous Notes [...] Type: *No Product type* / Secondary Insurance: [employer] [place] Prescription Coverage: Yes This plan was [...] cath without complications. Migdalia Parker PA-C Pager #[phone] 12/10/2021 Initial Assessments - Nick Georges RN [...] COVID test: Lab Results Component Value Date [id number] Not Detected 12/08/2021 Past medical History: Past [...] 180 days) Any patient receiving care at [facility] must abide by [place] law. The hierarchy [...] The agent with financial power of corporate attorney or a conservator appointed in accordance [...] - standard, cane - straight Home Address: [address] [place] [address] [place] [address] Social & Family Supports: All names listed below confirmed with patient as current and correct Extended Emergency Contact Information Primary Emergency Contact: Kisha Fatima Address: [address] [place] [address] [place] [address] [facility] Mobile Relation: Spouse Secondary Emergency Contact: Elba Swenson Address: [place], [place] [id number] [place] [address] Mobile Relation: Child Current Care Provided by: [...] Type: *No Product type* / Secondary Insurance: [facility] [facility] [facility] Prescription Coverage: Yes Preferred Pharmacy: [facility] [place] [phone] [facility] [id number] - [place], [place] - [address] [place] [id number] [address] Status: Patient is a : unable to assess Primary Care Provider: Lovely Vicente MD [phone] Patient/Caregiver Goals of Treatment: Get out of here Potential Needs for Transition of Care: none Agency Referrals: none patient has used [facility] in the past Transportation: no concerns Transportation Anticipated: family or friend will provide Concerns to be Addressed: patient refuses services, discharge planning Assessment: Patient is admitted to [facility] Service pager [phone] for 76 y.o.??male??with h/o??CAD s/p 3vCABG ([place]ON-LAD, [...] status on current unit. Nick Georges RN river captain, Office of Care Management Pager: [phone] Brief Op Note - Vitaliy Nobles MD - 12/10/2021 8:31 AM EDT Images from the original note were not included. [facility] [place] [address] [place] [address] CORONARY ANGIOGRAM AND PERCUTANEOUS CORONARY INTERVENTION REPORT Patient: Don Fatima : 1945 MR number: [id number] Date of Service: 12/10/2021 Research Group Director: Vitaliy Nobles MD Fellow: [place] MD [...] andis managed by his PCP. Lives in [place], [place] with his . States that he [...] your patient Desirae Jett APRN Endocrinology Pager [phone] 70 minutes of this 80 minute visit [...] + trop. Known CAD with hx of CT and CABG. DM. MARIA VICTORIA.ICM. ??? ASHD [...] for further details. STEPHANIE Rebolledo 12/08/2021 Pager [phone] documented in this encounter Plan of Treatment Upcoming Encounters Date Type Specialty Care Team Description 05/28/2022 Appointment Cardiology Zulma Dolan MD [facility] [place], [place] [address] (Wo rk) 05/28/2022 Laboratory Appointment Lab 05/28/2022 Office Visit Cardiology Zulma Dolan MD [facility] [place] [address] Liz Poole PA [facility] [place] [address] 06/10/2022 Office Visit Dermatology Laura Scherer MD [facility] DR [address], [place] [address] (Wo rk) Scheduled Referrals Name [...] Glucose 215 (H) 65 - 199 [facility] mg/dL [facility] Comment: Supplemental ranges: <140 mg/dL before meals <180 mg/dL all other times of the day Specimen Anatomical Collection Method Collection Time Receive d Time (Source) Location / / Volume Laterality Blood 12/12/2021 7:42 AM 7:42 EDT AM EDT Ifeanyi Truong MD POINT OF CARE TEST ORDERABLE S Performing Organization Address City/State/[place] [address] (ABNORMAL) Differential, Automated (12/12/2021 4:51 AM EDT) athologist Signature Neutrophils % 75.4 % [facility]ORY Neutr Abs (ANC) 5.95 1.70 - [facility] 6.10 [facility] x10(3)/[facility] LABORATORY Lymphocytes % 12.2 % [facility]ORY Lymphocytes Abs 1.0 0.9 - 3.2 [facility] x10(3)/[facility] LABORATORY Monocytes % 9.5 % [facility]OR[facility]ORY Monocyte Abs 0.8 0.3 - 0.9 [facility] x10(3)/[facility] LABORATORY Eosinophils % 1.8 % [facility]ORY Eosinophils Abs 0.1 0.0 - 0.4 [facility] x10(3)/[facility] LABORATORY Basophils % 0.5 % [facility]ORY Basophils Abs 0.0 0.0 - 0.1 [facility] x10(3)/[facility] LABORATORY Immature [...] Address City/State/ZIP Code Phon e Number [address] (ABNORMAL) Hemogram (12/12/2021 4:51 AM EDT) Analysis Performed At Patho logist Time Signature WBC 7.9 4.0 - 9.5 [facility] LABORATORY RBC 4.19 (L) 4.58 - [place] 5.54 [facility] x10(6)/[facility] LABORATORY Hemoglobin 12.1 (L) 13.7 - [facility] 16.[facility] g/dL [facility] Hematocrit 36.7 (L) 40.5 - [facility] 48.5 % [facility] MCV 87.6 82.9 - [facility] 93.1 [facility] LABORATORY MCH 28.9 27.5 - [place] 32.1 pg [facility] MCHC 33.0 32.0 - [place] 35.7 g/dL [facility] Platelets 231 145 - 357 [facility] x10(3)/[facility] LABORATORY RDWSD 47.2 (H) 36.0 - [facility] RYAN 45.0 [facility] LABORATORY RDWCV 14.6 (H) 11.4 - [facility] RYAN 13.8 % [facility] LAB[facility] MPV 9.5 7.6 - 12.9 [facility] nRBC % Auto 0.0 % [facility]ORY nRBC Abs Auto 0.000 0.000 - [place] 0.000 [facility] x10(3)/[facility] LABORATORY Specimen Anatomical Collection Method Collection Time Receive d Time (Source) Location / / Volume Laterality Blood 12/12/2021 4:51 AM 2 5:06 EDT AM EDT Resulting Agency Comment Spec In Lab Bijan Sun MD HEMATOLOGY ORDERABLES Performing Organization Address City/State/ZIP Code Phon [place] Number [place], [place] [id number] [place] [address] (ABNORMAL) Prothrombin Time (12/12/2021 4:51 AM EDT) athologist Signature PT 14.9 (H) 9.4 - 12.5 [facility] sec [facility] INR 1.3 [facility] [...] [place] [address] (ABNORMAL) BMP w/fasting Glucose (12/12/2021 4:51 AM EDT) athologist Signature Glucose 152 (H) 65 - 99 [facility] Fasting mg/dL [facility] Comment: ?Fasting* Glucose Interpretive C riteria [...] of Diabetes Mellitus, Position Statement from the [place] [employer]. ??Diabete s Care, Volume 33, Supplement 1, Jul 2009 BUN 52 (H) 10 - 20 mg/dL [facility] Creatinine 1.72 (H) 0.80 - [...] 15 mmol/L [facility] Calcium 8.9 8.5 - 10.5 [...] Organization Address City/State/[place] [address] Magnesium (12/12/2021 4:51 AM EDT) athologist Signature Magnesium 1.02 0.69 - 1.07 [facility]/L [facility] Specimen Anatomical Collection Method Collection Time Receive d Time (Source) Location / / Volume Laterality Blood 12/12/2021 4:51 AM 2 5:06 EDT AM EDT Resulting Agency Comment Spec In Lab Iker Cuevas MD CHEMISTRY ORDERABLES Performing Organization Address City/State/ZIP Code Phon e Number [address] POCT Glucose (12/12/2021 3:43 AM EDT) athologist Signature POC Glucose 138 65 - 199 [place] mg/dL [facility] Comment: Supplemental ranges: <140 mg/dL before meals <180 mg/dL all other times of the day Specimen Anatomical Collection Method Collection Time Receive d Time (Source) Location / / Volume Laterality Blood 12/12/2021 3:43 AM 2 3:43 EDT AM EDT Iker Cuevas MD POINT OF CARE TEST ORDERABLE S Performing Organization Address City/State/ZIP Code Phon e Number [address] POCT Glucose (12/11/2021 11:44 PM EDT) athologist Signature POC Glucose 124 65 - 199 [facility] RYAN mg/dL [facility] Comment: Supplemental ranges: <140 mg/dL before meals <180 mg/dL all other times of the day Specimen Anatomical Collection Method Collection Time Receive d Time (Source) Location / / Volume Laterality Blood 12/11/2021 11:44 12/11/2021 PM EDT 11:44 PM EDT Iker Cuevas MD POINT OF CARE TEST ORDERABLE S Performing Organization Address City/State/ZIP Code Phon e Number [address] (ABNORMAL) POCT Glucose (12/11/2021 8:12 PM EDT) athologist Signature POC Glucose 200 (H) 65 - 199 [place] mg/dL [facility] Comment: Supplemental ranges: <140 mg/dL before meals <180 mg/dL all other times of the day Specimen Anatomical Collection Method Collection Time Receive d Time (Source) Location / / Volume Laterality Blood 12/11/2021 8:12 PM 2 8:12 EDT PM EDT Iker Cuevas MD POINT OF CARE TEST ORDERABLE S Performing Organization Address City/State/Z[place] [address] (ABNORMAL) POCT Glucose (12/11/2021 6:50 PM EDT) athologist Signature POC Glucose 245 (H) 65 - 199 [place] mg/dL [facility] Comment: Supplemental ranges: <140 mg/dL before meals <180 mg/dL all other times of the day Specimen Anatomical Collection Method Collection Time Receive d Time (Source) Location / / Volume Laterality Blood 12/11/2021 6:50 PM 2 6:50 EDT PM EDT Iker Cuevas MD POINT OF CARE TEST ORDERABLE S Performing Organization Address City/State/ZIP [place] [address] (ABNORMAL) POCT Glucose (12/11/2021 4:00 PM EDT) athologist Signature POC Glucose 383 (H) 65 - 199 [place] mg/dL [facility] Comment: Supplemental ranges: <140 mg/dL before meals <180 mg/dL all other times of the day Specimen Anatomical Collection Method Collection Time Receive d Time (Source) Location / / Volume Laterality Blood 12/11/2021 4:00 PM 2 4:00 EDT PM EDT Iker Cuevas MD POINT OF CARE TEST ORDERABLE S Performing Organization Address City/State/ZIP [place] [address] (ABNORMAL) POCT Glucose (12/11/2021 12:01 PM EDT) athologist Signature POC Glucose 342 (H) 65 - 199 [place] mg/dL [facility] Comment: Supplemental ranges: <140 mg/dL before meals <180 mg/dL all other times of the day Specimen Anatomical Collection Method Collection Time Receive d Time (Source) Location / / Volume Laterality Blood 12/11/2021 12:01 12/11/2021 PM EDT 12:01 PM EDT Iker Cuevas MD POINT OF CARE TEST ORDERABLE S Performing Organization Address City/State/ZIP Code [place] [address] COVID-19 PCR (12/11/2021 10:13 AM EDT) [facility] Method Time Signature SARS-CoV-2 Not Detected [...] diagnosis of COVID-19 is performed using the [employer] RONNA S-CoV-2 Assay as authorized by the FDA Emergency Use Authorization (EUA). This EUA assay is intended for In-vitro Diagnostic (IVD) use with respiratory sp ecimens such as nasopharyngeal swabs collected from individuals during the ac [place] phase of infection. This assay is performed based on the instructions for use provided by [employer] and additional guidance provided by CDC and FDA. Testing is performed in the Clinical Genomics and Advanced Technolog y Laboratory within the Department of Pathology and Laboratory Medicine at [facility], certified under the Clinical Laboratory Improvement Amendments [...] required or requested by public health [facility], positive specimens may be sent for additional [...] fact sheets at the following FDA website: https://www.fda.gov/medical-devices/bngemkpfxnf-ametlka-6164-yxqha-48-pqgbcicht- ohp-dcattfzdzwhdzu-hhhujon-devices/vnfrv-mqxfrqfzvgp-yvjc SARS-Cov-2 RNA Source BI REPORT DEVELOPER Swab [facility] Specimen (Source) Anatomical Collection Method Collection Time Re ceived Time Location / / Volume Laterality Nasopharyngeal Swab 12/11/2021 10:13 0503/2022 AM EDT 11:16 AM EDT Comment: Symptoms->Surveillance Resulting Agency Comment Spec In Lab Iker Cuevas MD MICROBIOLOGY - GENERAL ORDER [place] Performing Organization Address City/State/[place] [address] POCT Glucose (12/11/2021 7:34 AM EDT) athologist Signature POC Glucose 198 65 - 199 [facility] mg/dL [facility] Comment: Supplemental ranges: <140 mg/dL before meals <180 mg/dL all other times of the day Specimen Anatomical Collection Method Collection Time Receive d Time (Source) Location / / Volume Laterality Blood 12/11/2021 7:34 AM 2 7:34 EDT AM EDT Iker Cuevas MD POINT OF CARE TEST ORDERABLE S Performing Organization Address City/State/[place] [address] (ABNORMAL) POCT Glucose (12/11/2021 5:07 AM EDT) P athologist Signature POC Glucose 208 (H) 65 - 199 [facility]dL [facility] Comment: Supplemental ranges: <140 mg/dL before meals <180 mg/dL all other times of the day Specimen Anatomical Collection Method Collection Time Receive d Time (Source) Location / / Volume Laterality Blood 12/11/2021 5:07 AM 2 5:07 EDT AM EDT Iker Cuevas MD POINT OF CARE TEST ORDERABLE S Performing Organization Address City/State/[place] [address] (ABNORMAL) Differential, Automated (12/11/2021 4:28 AM EDT) Patholo gist Method Time Signature Neutrophils % 79.6 % [facility] Neutr Abs (ANC) 7.01 (H) 1.70 - [facility] 6.10 [facility] x10(3)/[facility] LABORATORY Lymphocytes % 9.1 % [facility] Lymphocytes Abs 0.8 (L) 0.9 - 3.2 [facility] x10(3)/[facility] LABORATORY Monocytes % 9.2 % [facility] Monocyte Abs 0.8 0.3 - 0.9 [facility] x10(3)/[facility] LABORATORY Eosinophils % 1.3 % [facility] Eosinophils Abs 0.1 0.0 - 0.4 [facility] x10(3)/[facility] LABORATORY Basophils % 0.5 % [facility] Basophils Abs 0.0 0.0 - 0.1 [facility] x10(3)/[facility] LABORATORY Immature Gran % 0.30 [...] - 0.04 x10(3)/[facility] Specimen Anatomical Collection Method Collection Time Receive d Time (Source) Location / / Volume Laterality Blood 12/11/2021 4:28 AM 4:37 EDT AM EDT Resulting Agency Comment Spec In Lab Bijan Sun MD HEMATOLOGY ORDERABLES Performing Organization Address City/State/ZIP Code Phon e Number [place] [phone] (ABNORMAL) Hemogram (12/11/2021 4:28 AM EDT) Analysis Performed At Patho logist Time Signature WBC 8.8 4.0 - 9.5 [facility] x10(3)/[facility] LABORATORY RBC 4.15 (L) 4.58 - [facility] 5.54 [facility] x10(6)/[facility] LABORATORY Hemoglobin 11.9 (L) 13.7 - [facility] 16.5 g/dL [facility] Hematocrit 36.9 (L) 40.5 - [facility] R[facility]AN 48.5 % [facility] MCV 88.9 82.9 - [facility] 93.1 [facility] LABORATORY MCH 28.7 27.5 - [place] [facility] 32.1 pg [facility] MCHC 32.2 32.0 - [facility] 35.7 g/dL [facility] Platelets 211 145 - 357 [facility] x[facility](3[facility] LABORATORY RDWSD 48.3 (H) 36.0 - [place] [facility] 45.0 [facility] LABORATORY RDWCV 14.8 (H) 11.4 - [facility] 13.8 % [facility] MPV 9.6 7.6 - 12.9 [facility] LABORATORY nRBC % Auto 0.0 % [facility] nRBC Abs Auto 0.000 0.000 - [facility] 0.000 [facility] x10(3)/[facility] LABORATORY Specimen Anatomical Collection Method Collection Time Receive d Time (Source) Location / / Volume Laterality Blood 12/11/2021 4:28 AM 2 4:37 EDT AM EDT Resulting Agency Comment Spec In Lab Bijan Sun MD HEMATOLOGY ORDERABLES Performing Organization Address City/[facility] [place] [address] (ABNORMAL) Prothrombin Time (12/11/2021 4:28 AM EDT) P athologist Signature PT 17.7 (H) 9.4 - 12.5 [facility] LABORATORY INR 1.6 [facility] [...] Cuevas MD HEMATOLOGY ORDERABLES Performing Organization Address City/[facility]/ZIP Code Phon e Number [place] [phone] (ABNORMAL) BMP w/fasting Glucose (12/11/2021 4:28 AM EDT) P athologist Signature Glucose 207 (H) 65 - 99 [facility] Fasting mg/dL [facility] Comment: ?Fasting* Glucose Interpretive C riteria [...] of Diabetes Mellitus, Position Statement from the [place] [employer]. ??Diabete s Care, Volume 33, Supplement 1, Jul 2009 BUN 49 (H) 10 - 20 mg/dL [facility] Creatinine 1.43 0.80 - 1.50 [...] Cuevas MD CHEMISTRY ORDERABLES Performing Organization Address City/[facility]/ZIP [place] [address] Magnesium (12/11/2021 4:28 AM EDT) athologist Signature Magnesium 1.04 0.69 - 1.07 [facility] mmol/L [facility] Specimen Anatomical Collection Method Collection Time Receive d Time (Source) Location / / Volume Laterality Blood 12/11/2021 4:28 AM 2 4:37 EDT AM EDT Resulting Agency Comment Spec In Lab Iker Cuevas MD CHEMISTRY ORDERABLES Performing Organization Address City/[facility]/ZIP [place] [address] POCT Glucose (12/11/2021 3:58 AM EDT) athologist Signature POC Glucose 189 65 - 199 [place] mg/dL [facility] Comment: Supplemental ranges: <140 mg/dL before meals <180 mg/dL all other times of the day Specimen Anatomical Collection Method Collection Time Receive d Time (Source) Location / / Volume Laterality Blood 12/11/2021 3:58 AM 2 3:58 EDT AM EDT Iker Cuevas MD POINT OF CARE TEST ORDERABLE S Performing Organization Address City/[facility]/ZIP Code Phon e Number [address] (ABNORMAL) POCT Glucose (12/10/2021 11:45 PM EDT) athologist Signature POC Glucose 205 (H) 65 - 199 [place] [facility] mg/dL [facility] Comment: Supplemental ranges: <140 mg/dL before meals <180 mg/dL all other times of the day Specimen Anatomical Collection Method Collection Time Receive d Time (Source) Location / / Volume Laterality Blood 12/10/2021 11:45 12/10/2021 PM EDT 11:45 PM EDT Iker Cuevas MD POINT OF CARE TEST ORDERABLE S Performing Organization Address City/[facility]/ZIP [place] [address] (ABNORMAL) POCT Glucose (12/10/2021 7:54 PM EDT) athologist Signature POC Glucose 225 (H) 65 - 199 [facility] mg/dL [facility] Comment: Supplemental ranges: <140 mg/dL before meals <180 mg/dL all other times of the day Specimen Anatomical Collection Method Collection Time Receive d Time (Source) Location / / Volume Laterality Blood 12/10/2021 7:54 PM 2 7:54 EDT PM EDT Iker Cuevas MD POINT OF CARE TEST ORDERABLE S Performing Organization Address City/[facility]/ZIP [facility] [place] [address] Potassium (12/10/2021 7:46 PM EDT) athologist Signature Potassium 4.2 3.5 - 5.0 [facility] mmol/L [facility] Comment: Please note: ??Patients with WBC [...] Cuevas MD CHEMISTRY ORDERABLES Performing Organization Address City/[facility]/ZIP [facility] [place] [address] (ABNORMAL) Basic Metabolic Panel (non-fasting) (12/10/2021 6:12 PM EDT) athologist Signature Glucose Lvl 246 (H) 65 - 199 [facility] mg/dL [facility] Comment: Diabetes: >=200 mg/dL plus symp toms BUN 50 (H) 10 - 20 mg/dL [facility] Creatinine 1.39 0.80 - 1.50 [...] Gap 16 (H) 5 - 15 mmol/L [facility] Calcium 8.3 (L) 8.5 - [...] Address City/State/ZIP Code Phon e Number [address] POCT Glucose (12/10/2021 4:59 PM EDT) P athologist Signature POC Glucose 158 65 - 199 [facility] mg/dL [facility] Comment: Supplemental ranges: <140 mg/dL before meals <180 mg/dL all other times of the day Specimen Anatomical Collection Method Collection Time Receive d Time (Source) Location / / Volume Laterality Blood 12/10/2021 4:59 PM 2 4:59 EDT PM EDT Iker Cuevas MD POINT OF CARE TEST ORDERABLE S Performing Organization Address City/[facility]/Z[place] [address] (ABNORMAL) POCT Glucose (12/10/2021 12:43 PM EDT) P athologist Signature POC Glucose 241 (H) 65 - 199 [facility] mg/dL [facility] Comment: Supplemental ranges: <140 mg/dL before meals <180 mg/dL all other times of the day Specimen Anatomical Collection Method Collection Time Receive d Time (Source) Location / / Volume Laterality Blood 12/10/2021 12:43 12/10/2021 PM EDT 12:43 PM EDT Iker Cuevas MD POINT OF CARE TEST ORDERABLE S Performing Organization Address City/State/Z[place] [address] EKG 12 Lead (12/10/2021 11:17 AM EDT) Component Value Ref Range Test Analysis Performed Pathologis t Method Time At Signature Ventricular rate 62 BPM MUSE SYSTEM Atrial Rate 62 BPM MUSE SYSTEM P-R Interval 142 ms MUSE SYSTEM QRS Duration 100 ms MUSE SYSTEM Q-T Interval 434 ms MUSE SYSTEM QTC Calculated 440 ms MUSE SYSTEM (Bezet) Calculated P Agate 34 degrees MUSE SYSTEM Calculated R Agate -39 degrees MUSE SYSTEM Calculated T Agate 92 degrees MUSE SYSTEM INTERPRETATION Normal sinus [...] Narrative 12/10/2021 12:04 PM EDT ?[facility] ? Cardiac Cathete rization/Intervention Report ? Patient Name: Don Fatima. ? Procedure Date: 12/10/2021 ? A #: [id number] ? Primary Physician: Nobles, Vitaliy P ? Case #: [id number] ? File Name: [id number] ? Catheterization Order Number: [id number] ? [facility] ? Final Report [place], [place] ? Patient Name: ? Don E. Stewa rt ? ID#: ?[id number] ? : ?1945 ? Procedure Date: ? 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 ??Imaging was [...] ?3.75 guiding catheter and a 3.5 Fr [facility] 20 Mhz using Manual ?pullback. ??Imaging was [...] stenosis ? following this intervention. The final YLUISSA flow was 3. ? PCI of the [...] ?modification of this regimen. C [facility] Interventional Cardiology for ?questions. ?The 1 year [...] Vitaliy Nobles MD - 01/14/2022 [facility] Cardiac Catheterization/Intervention Re port Patient Name: Don Fatima Procedure Date: 12/10/2021 A #: [id number] Primary Physician: Vitaliy Nobles Case #: [id number] File Name: [id number] Catheterization Order Number: [id number] [facility] Final Report [place], [place] Patient Name: Don Fatima ID#: [...] was designated as ASA Class III. 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 Imaging was [...] and a 3.5 Fr [facility] Quechan 20 Mhz using Manual pullback. Imaging was [...] modification of this regimen. Consult D [facility] Interventional Cardiology for questions. The 1 year [...] Glucose 262 (H) 65 - 199 [facility] mg/dL [facility] Comment: Supplemental ranges: <140 mg/dL before meals <180 mg/dL all other times of the day Specimen Anatomical Collection Method Collection Time Receive d Time (Source) Location / / Volume Laterality Blood 12/10/2021 10:30 12/10/2021 AM EDT 10:30 AM EDT Iker Cuevas MD POINT OF CARE TEST ORDERABLE S Performing Organization Address City/State/Z[place] [address] (ABNORMAL) POCT Glucose (12/10/2021 9:48 AM EDT) P athologist Signature POC Glucose 279 (H) 65 - 199 [facility]/dL [facility] Comment: Supplemental ranges: <140 mg/dL before meals <180 mg/dL all other times of the day Specimen Anatomical Collection Method Collection Time Receive d Time (Source) Location / / Volume Laterality Blood 12/10/2021 9:48 AM 2 9:48 EDT AM EDT Iker Cuevas MD POINT OF CARE TEST ORDERABLE S Performing Organization Address City/[facility]/Z[place] [address] (ABNORMAL) POCT Glucose (12/10/2021 9:07 AM EDT) P athologist Signature POC Glucose 268 (H) 65 - 199 [facility] mg/dL [facility] Comment: Supplemental ranges: <140 mg/dL before meals <180 mg/dL all other times of the day Specimen Anatomical Collection Method Collection Time Receive d Time (Source) Location / / Volume Laterality Blood 12/10/2021 9:07 AM 2 9:07 EDT AM EDT Iker Cuevas MD POINT OF CARE TEST ORDERABLE S Performing Organization Address City/State/Z[place] [address] (ABNORMAL) Point of Care Blood Gas Historical (12/10/2021 9:04 AM EDT) Patholo gist Method Time Signature POC pH 7.40 7.35 - [facility] 7.45 [facility] POC PCO2 40 35 - 45 [facility] LABORATORY POC PO2 63 (L) 85 - 104 [facility] LABORATORY POC Base Excess 0.0 -3.0 - 3.0 [facility] K mmol/L [facility] POC HCO3 24.8 20.0 - [facility] 26.0 [facility] POC Sodium 143 135 - 145 [facility] mmol/L [facility] POC Potassium 3.7 3.5 - 5.0 [facility] mmol/L [facility] POC Ionized Ca 1.07 (L) 1.15 - [facility] 1.33 [facility] POC Hematocrit 30.0 (L) 40.0 - [facility] 51.0 % [facility] POC Calc Hgb 10.2 (L) 13.7 - [facility] 17.5 g/dL [facility] Comment: The calculation of hemoglobin f rom hematocrit assumes a normal MCHC. POC Bgas Loc CC LAB [facility] Specimen Anatomical Collection Method Collection Time Receive d Time (Source) Location / / Volume Laterality Blood 12/10/2021 9:04 AM 2 EDT 12:00 PM EDT Ifeanyi Truong MD CHEMISTRY ORDERABLES Performing Organization Address City/State/Z[place] [address] (ABNORMAL) POCT Glucose (12/10/2021 7:19 AM EDT) P athologist Signature POC Glucose 274 (H) 65 - 199 [facility] mg/dL [facility] Comment: Supplemental ranges: <140 mg/dL before meals <180 mg/dL all other times of the day Specimen Anatomical Collection Method Collection Time Receive d Time (Source) Location / / Volume Laterality Blood 12/10/2021 7:19 AM 2 7:19 EDT AM EDT Iker Cuevas MD POINT OF CARE TEST ORDERABLE S Performing Organization Address City/State/Z[place] [address] Heparin (unfractionated) Level (12/10/2021 4:25 AM EDT) P athologist Signature Heparin UFH 0.69 IU/mL [facility]AT[facility] Comment: Heparin (anti-Xa) levels should be [...] City/State/ZIP Code Phon e Number [place] [phone] Drive (ABNORMAL) Differential, Automated (12/10/2021 4:25 AM EDT) Patholo gist Method Time Signature Neutrophils % 79.8 % [facility] Neutr Abs (ANC) 7.47 (H) 1.70 - [facility] 6.10 [facility] x10(3)/[facility] LABORATORY Lymphocytes % 10.6 % [facility] Lymphocytes Abs 1.0 0.9 - 3.2 [facility] x10(3)/[facility] LABORATORY Monocytes % 8.4 % [facility] Monocyte Abs 0.8 0.3 - 0.9 [facility] x10(3)/[facility] LABORATORY Eosinophils % 0.6 % [facility] Eosinophils Abs 0.1 0.0 - 0.4 [facility] x10(3)/[facility] LABORATORY Basophils % 0.2 % [facility] Basophils Abs 0.0 0.0 - 0.1 [facility] x10(3)/[facility] LABORATORY Immature Gran % [...] Gran Abs 0.04 0.00 - 0.04 x10(3)/[facility] MAR Y [facility] Specimen Anatomical Collection Method Collection Time Receive d Time (Source) Location / / Volume Laterality Blood 12/10/2021 4:25 AM 4:34 EDT AM EDT Resulting Agency Comment Spec In Lab Morgan BROWN HEMATOLOGY ORDERABLES Performing Organization Address City/State/[place] [address] (ABNORMAL) Hemogram (12/10/2021 4:25 AM EDT) Analysis Performed At Patho logist Time Signature WBC 9.4 4.0 - 9.5 [facility] x10(3)/[facility] LABORATORY RBC 3.81 (L) 4.58 - [facility] 5.54 [facility] x10(6)/[facility] LABORATORY Hemoglobin 11.1 (L) 13.7 - [facility] 16.5 g/dL [facility] Hematocrit 34.0 (L) 40.5 - [facility] 48.5 % [facility] MCV 89.2 82.9 - [facility] 93.1 [facility] LABORATORY MCH 29.1 27.5 - [facility] 32.1 pg [facility] MCHC 32.6 32.0 - [facility] 35.7 g/dL [facility] Platelets 183 145 - 357 [facility] x10(3)/[facility] LABORATORY RDWSD 49.9 (H) 36.0 - [facility] RYAN 45.0 [facility] LABORATORY RDWCV 15.2 (H) 11.4 - [facility] RYAN 13.8 % [facility] MPV 9.8 7.6 - 12.9 [facility] LABORATORY nRBC % Auto 0.0 % [facility] nRBC Abs Auto 0.000 0.000 - [place] [facility] 0.000 [facility] x10(3)/[facility] LABORATORY Specimen Anatomical Collection Method Collection Time Receive d Time (Source) Location / / Volume Laterality Blood 12/10/2021 4:25 AM 2 4:34 EDT AM EDT Resulting Agency Comment Spec In Lab Morgan BROWN HEMATOLOGY ORDERABLES Performing Organization Address City/[facility]/ZIP [facility] Phon e Number [address] (ABNORMAL) Prothrombin Time (12/10/2021 4:25 AM EDT) P athologist Signature PT 20.0 (H) 9.4 - 12.5 [facility] LABORATORY INR 1.7 [facility] [...] Cuevas MD HEMATOLOGY ORDERABLES Performing Organization Address City/[facility]/[place] [address] (ABNORMAL) BMP w/fasting Glucose (12/10/2021 4:25 AM EDT) P athologist Signature Glucose 210 (H) 65 - 99 [facility] Fasting mg/dL [facility] Comment: ?Fasting* Glucose Interpretive C riteria [...] of Diabetes Mellitus, Position Statement from the [place] [employer]. ??Diabete s Care, Volume 33, Supplement 1, Jul 2009 BUN 54 (H) 10 - 20 mg/dL [facility] Creatinine 1.52 (H) 0.80 - [...] 15 mmol/L [facility] Calcium 8.0 (L) 8.5 - [...] Cuevas MD CHEMISTRY ORDERABLES Performing Organization Address City/[facility]/ZIP Code Phon e Number [address] Magnesium (12/10/2021 4:25 AM EDT) athologist Signature Magnesium 0.95 0.69 - 1.07 [facility] mmol/L [facility] Specimen Anatomical Collection Method Collection Time Receive d Time (Source) Location / / Volume Laterality Blood 12/10/2021 4:25 AM 2 4:34 EDT AM EDT Resulting Agency Comment Spec In Lab Iker Cuevas MD CHEMISTRY ORDERABLES Performing Organization Address City/[facility]/ZIP [place] [address] POCT Glucose (12/10/2021 1:58 AM EDT) athologist Signature POC Glucose 164 65 - 199 [place] mg/dL [facility] Comment: Supplemental ranges: <140 mg/dL before meals <180 mg/dL all other times of the day Specimen Anatomical Collection Method Collection Time Receive d Time (Source) Location / / Volume Laterality Blood 12/10/2021 1:58 AM 2 1:58 EDT AM EDT Iker Cuevas MD POINT OF CARE TEST ORDERABLE S Performing Organization Address City/[facility]/ZIP Code Phon e Number [address] (ABNORMAL) POCT Glucose (12/09/2021 9:02 PM EDT) athologist Signature POC Glucose 313 (H) 65 - 199 [place] mg/dL [facility] Comment: Supplemental ranges: <140 mg/dL before meals <180 mg/dL all other times of the day Specimen Anatomical Collection Method Collection Time Receive d Time (Source) Location / / Volume Laterality Blood 12/09/2021 9:02 PM 2 9:02 EDT PM EDT Iker Cuevas MD POINT OF CARE TEST ORDERABLE S Performing Organization Address City/[facility]/Z[place] [address] Heparin (unfractionated) Level (12/09/2021 7:30 PM EDT) athologist Signature Heparin UFH 0.48 IU/mL [facility] LABORATORY Comment: Heparin (anti-Xa) levels should be [...] Organization Address City/State/[place] [address] (ABNORMAL) Basic Metabolic Panel (non-fasting) (12/09/2021 7:30 PM EDT) athologist Signature Glucose Lvl 372 (H) 65 - 199 [facility] Comment: Diabetes: >=200 mg/dL plus symp toms BUN 56 (H) 10 - 20 mg/dL [facility] Creatinine 1.75 (H) 0.80 - [...] Organization Address City/State/[place] [address] (ABNORMAL) POCT Glucose (12/09/2021 6:34 PM EDT) athologist Signature POC Glucose 408 (H) 65 - 199 [facility] mg/dL [facility] Comment: Supplemental ranges: <140 mg/dL before meals <180 mg/dL all other times of the day Specimen Anatomical Collection Method Collection Time Receive d Time (Source) Location / / Volume Laterality Blood 12/09/2021 6:34 PM 2 6:34 EDT PM EDT Iker Cuevas MD POINT OF CARE TEST ORDERABLE S Performing Organization Address City/State/Z[place] [address] (ABNORMAL) POCT Glucose (12/09/2021 6:32 PM EDT) athologist Signature POC Glucose 356 (H) 65 - 199 [facility] mg/dL [facility] Comment: Supplemental ranges: <140 mg/dL before meals <180 mg/dL all other times of the day Specimen Anatomical Collection Method Collection Time Receive d Time (Source) Location / / Volume Laterality Blood 12/09/2021 6:32 PM 2 6:32 EDT PM EDT Iker Cuevas MD POINT OF CARE TEST ORDERABLE S Performing Organization Address City/State/Z[place] [address] (ABNORMAL) POCT Glucose (12/09/2021 4:19 PM EDT) athologist Signature POC Glucose 347 (H) 65 - 199 [facility] mg/dL [facility] Comment: Supplemental ranges: <140 mg/dL before meals <180 mg/dL all other times of the day Specimen Anatomical Collection Method Collection Time Receive d Time (Source) Location / / Volume Laterality Blood 12/09/2021 4:19 PM 2 4:19 EDT PM EDT Iker Cuevas MD POINT OF CARE TEST ORDERABLE S Performing Organization Address City/State/[place] [address] Heparin (unfractionated) Level (12/09/2021 1:29 PM EDT) athologist Signature Heparin UFH 0.42 IU/mL [facility] LABORATORY Comment: Heparin (anti-Xa) levels should be [...] [place] [address] (ABNORMAL) POCT Glucose (12/09/2021 12:02 PM EDT) athologist Signature POC Glucose 235 (H) 65 - 199 [facility] LABORATORY Comment: Supplemental ranges: <140 mg/dL before meals <180 mg/dL all other times of the day Specimen Anatomical Collection Method Collection Time Receive d Time (Source) Location / / Volume Laterality Blood 12/09/2021 12:02 12/09/2021 PM EDT 12:02 PM EDT Iker Cuevas MD POINT OF CARE TEST ORDERABLE S Performing Organization Address City/State/[place]IP [place] [address] (ABNORMAL) POCT Glucose (12/09/2021 9:44 AM EDT) athologist Signature POC Glucose 214 (H) 65 - 199 [facility] mg/dL [facility] LABORATORY Comment: Supplemental ranges: <140 mg/dL before meals <180 mg/dL all other times of the day Specimen Anatomical Collection Method Collection Time Receive d Time (Source) Location / / Volume Laterality Blood 12/09/2021 9:44 AM 2 9:44 EDT AM EDT Iker Cuevas MD POINT OF CARE TEST ORDERABLE S Performing Organization Address [facility]/[place] [address] EKG 12 Lead (12/09/2021 7:57 AM EDT) Component Value Ref Range Test Analysis Performed Pathologis t Method Time At Signature Ventricular rate 101 BPM MUSE SYSTEM Atrial Rate 101 BPM MUSE SYSTEM P-R Interval 150 ms MUSE SYSTEM QRS Duration 112 ms MUSE SYSTEM Q-T Interval 364 ms MUSE SYSTEM QTC Calculated 471 ms MUSE SYSTEM (Bezet) Calculated P Agate 59 degrees MUSE SYSTEM Calculated R Agate -42 degrees MUSE SYSTEM Calculated T Agate 102 degrees MUSE SYSTEM INTERPRETATION Sinus tachycardia Occasional Premature ventricular com plexes MUSE SYSTEM Left axis deviation 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) Abnormal ECG When compared with ECG of 08-DEC-2021 16:40, Premature ventricular complexes are now Present Confirmed by MD Fernandez Danette ([id number]) on 12/10/2021 4:55:06 PM Specimen Anatomical Collection Method Collection Time Receive d Time (Source) Location / / Volume Laterality 12/09/2021 7:57 AM 2 4:55 EDT PM EDT Iker Cuevas MD ECG ORDERABLES Performing Organization Address City/[facility]/ZIP Code Phon e Number MUSE SYSTEM (ABNORMAL) POCT Glucose (12/09/2021 7:28 AM EDT) P athologist Signature POC Glucose 263 (H) 65 - 199 [facility] mg/dL [facility] LABORATORY Comment: Supplemental ranges: <140 mg/dL before meals <180 mg/dL all other times of the day Specimen Anatomical Collection Method Collection Time Receive d Time (Source) Location / / Volume Laterality Blood 12/09/2021 7:28 AM 2 7:28 EDT AM EDT Iker Cuevas MD POINT OF CARE TEST ORDERABLE S Performing Organization Address City/State/ZIP Code Phon e Number [place] [phone] (ABNORMAL) Hemoglobin A1c (12/09/2021 6:18 AM EDT) Analysis Performed At Patho logist Time Signature Hemoglobin A1C 7.4 (H) 4.3 - 5.6 [facility] [...] Mellitus, Diabetes Care 2013; 36: Suppl. 1, S67-45 Est Avg Gluc See note mg/dL [facility] Comment: Estimated Average Glucose [...] into estimated average glucose values. ??Diabetes Care 2008:31(8):8570-6646. Specimen Anatomical Collection Method Collection Time Receive d Time (Source) Location / / Volume Laterality Blood Venous Draw / 12/09/2021 6:18 AM 12/10/19 22 Unknown EDT 12:24 PM EDT Resulting Agency Comment Spec In Lab Migdalia BROWN CHEMISTRY ORDERABLES Performing Organization Address City/[facility] [place] [address] (ABNORMAL) Prothrombin Time (12/09/2021 6:18 AM EDT) athologist Signature PT 26.6 (H) 9.4 - 12.5 [facility] LABORATORY INR 2.3 [facility] [...] Migdalia BROWN HEMATOLOGY ORDERABLES Performing Organization Address City/[facility] Phon e Number [place] [phone] Heparin (unfractionated) Level (12/09/2021 6:18 AM EDT) P athologist Signature Heparin UFH 0.24 IU/mL [facility] LABORATORY Comment: Heparin (anti-Xa) levels should be [...] Organization Address City/State/[place] [address] (ABNORMAL) Differential, Automated (12/09/2021 6:18 AM EDT) [facility] Method Time Signature Neutrophils % 91.5 % [facility] LABORATORY Neutr Abs (ANC) 15.78 (H) 1.70 - [facility] 6.10 [facility] x10(3)/[facility] L LABORATORY Lymphocytes % 2.9 % [facility] LABORATORY Lymphocytes Abs 0.5 (L) 0.9 - 3.2 [facility] x10(3)/[facility] LABORATORY Monocytes % 4.9 % [facility] LABORATORY Monocyte Abs 0.8 0.3 - 0.9 [facility] x10(3)/[facility] LABORATORY Eosinophils % 0.0 % [facility] LABORATORY Eosinophils Abs 0.0 0.0 - 0.4 [facility] x10(3)/[facility] LABORATORY Basophils % 0.2 % [facility] LABORATORY Basophils Abs 0.0 0.0 - 0.1 [facility] x10(3)/[facility] LABORATORY Immature Gran % 0.50 [...] Organization Address City/State/[place] [address] (ABNORMAL) Hemogram (12/09/2021 6:18 AM EDT) Analysis Performed At Patho logist Time Signature WBC 17.2 (H) 4.0 - 9.5 [facility] x10(3)/[facility] LABORATORY RBC 4.32 (L) 4.58 - [facility] RYAN 5.54 [facility] x10(6)/[facility] LABORATORY Hemoglobin 12.6 (L) 13.7 - [facility] 16.5 g/dL [facility] LABORATORY Hematocrit 38.9 (L) 40.5 - [facility] RYAN 48.5 % [facility] LABORATORY MCV 90.0 82.9 - [facility] 93.1 [facility] LABORATORY MCH 29.2 27.5 - [facility] RYAN 32.1 pg [facility] LABORATORY MCHC 32.4 32.0 - [facility] 35.7 g/dL [facility] LABORATORY Platelets 193 145 - 357 [facility] x10(3)/[facility] LABORATORY RDWSD 50.4 (H) 36.0 - [facility] RYAN 45.0 [facility] LABORATORY RDWCV 15.2 (H) 11.4 - [facility] RYAN 13.8 % [facility] LABORATORY MPV 9.5 7.6 - 12.9 [facility] LABORATORY nRBC % Auto 0.0 % [facility] LABORATORY nRBC Abs Auto 0.000 0.000 - [facility] RYAN 0.000 [facility] x10(3)/[facility] LABORATORY Specimen Anatomical Collection Method Collection Time Receive d Time (Source) Location / / Volume Laterality Blood 12/09/2021 6:18 AM 2 6:33 EDT AM EDT Resulting Agency Comment Spec In Lab Morgan BROWN HEMATOLOGY ORDERABLES Performing Organization Address City/State/[place] [address] Lipid Panel (Reflex Direct LDL) (12/09/2021 6:18 AM EDT) athologist Signature Chol, Total 105 mg/dL [facility] LABORATORY Comment: Lower Risk: <200 mg/dL Average Risk: 200-239 mg/dL Higher Risk: >ev=219 mg/dL Triglycerides 133 mg/dL [facility] LABORATORY Comment: Average Risk/Lower Risk: <150 mg/dL Borderline High Risk: 150-199 mg/dL High Risk: 200-499 mg/dL Very High Risk: >ro=468 mg/dL HDL 42 mg/dL [facility] LABORATORY Comment: Males: ?? Higher Risk: <40 mg/dL Females: ?? Higher Risk: <50 mg/dL LDL Cholesterol 36 mg/dL [facility] LABORATORY Comment: Lowest Risk: <100 mg/dL Lower Risk: 100-129 mg/dL Borderline High Risk: 130-159 mg/dL High Risk: 160-189 mg/dL Very High Risk: >an=133 mg/dL Chol/HDL Ratio 2.5 ratio [facility] LABORATORY Lipid Interpretation See Note [facility] LABORATORY Comment: Lipid management should be guided by a p atient? s ASCVD risk, goals and preferences. ACC/AHA Guidelines recommend high intens ity statin if clinical ASCVD or LDL greater than or equal to 190 mg/dL. http://tinyurl.com/XXQ-SUG-Jzvuznolc Adults aged 40-75 with LDL 70-189 mg/dL should have their 10 year ASCVD risk estimated with the ACC/AHA ASCVD risk es timator http://tools.acc.org/COWUI-Wsfv-Dhjeqiyn r/ Statin should be discussed if risk [...] Cuevas MD CHEMISTRY ORDERABLES Performing Organization Address [facility]/ZIP [facility] Phon e Number [address] TSH (12/09/2021 6:18 AM EDT) P athologist Signature TSH 1.60 0.27 - 4.20 [place] R[facility] mcIU/mL [facility] LABORATORY Comment: Reference Interval (mcIU/mL): Females: ??First Trimester: 0.23-3.88 ??Second Trimester: 0.22-3.90 ??Third Trimester: 0.44-4.66 Specimen Anatomical Collection Method Collection Time Receive d Time (Source) Location / / Volume Laterality Blood 12/09/2021 6:18 AM 2 6:33 EDT AM EDT Resulting Agency Comment Spec In Lab Iker Cuevas MD CHEMISTRY ORDERABLES Performing Organization Address City/[facility]/ZIP [facility] [place] [address] Hepatic Function Panel (12/09/2021 6:18 AM EDT) P athologist Signature Total Protein 7.3 6.1 - 8.0 [facility] g/dL [facility] LABORATORY Albumin 4.2 3.2 - 5.2 [facility] g/dL [facility] LABORATORY AST 25 0 - 39 [place] unit/L [facility] LABORATORY ALT 15 0 - 55 [facility] unit/L [facility] LABORATORY Alk Phos 75 40 - 130 [facility] unit/L [facility] LABORATORY Total 1.1 0.2 - 1.3 [place] Bilirubin mg/dL [facility] LABORATORY Bili, Direct 0.2 0.0 - 0.3 [facility] mg/dL [facility] LABORATORY Specimen Anatomical Collection Method Collection Time Receive d Time (Source) Location / / Volume Laterality Blood 12/09/2021 6:18 AM 2 6:33 EDT AM EDT Resulting Agency Comment Spec In Lab Iker Cuevas MD CHEMISTRY ORDERABLES Performing Organization Address City/State/[place] [address] (ABNORMAL) BMP w/fasting Glucose (12/09/2021 6:18 AM EDT) athologist Signature Glucose 235 (H) 65 - 99 [facility] Fasting mg/dL [facility] LABORATORY Comment: ?Fasting* Glucose Interpretive C riteria [...] of Diabetes Mellitus, Position Statement from the [place] [employer]. ??Diabete s Care, Volume 33, Supplement 1, Jul 2009 BUN 49 (H) 10 - 20 mg/dL [facility] LABORATORY Creatinine 1.33 0.80 - 1.50 [...] 15 mmol/L [facility] LABORATORY Calcium 8.8 8.5 - 10.5 [...] Cuevas MD CHEMISTRY ORDERABLES Performing Organization Address City/[facility]/ZIP Code Phon e Number [address] Magnesium (12/09/2021 6:18 AM EDT) P athologist Signature Magnesium 0.81 0.69 - 1.07 [facility] mmol/L [facility] LABORATORY Specimen Anatomical Collection Method Collection Time Receive d Time (Source) Location / / Volume Laterality Blood 12/09/2021 6:18 AM 2 6:33 EDT AM EDT Resulting Agency Comment Spec In Lab Iker Cuevas MD CHEMISTRY ORDERABLES Performing Organization Address City/[facility]/ZIP [place] [address] (ABNORMAL) Troponin (12/09/2021 6:18 AM EDT) athologist Signature Troponin-T 1.13 (H) 0.00 - [place] DAV[place] 0.00 ng/mL [facility] LABORATORY Comment: The 99th percentile for Troponin T is le ss than 0.01 ng/mL, any detectable cTnT concentration using this assay should be considered elevated. According to the third universal definit ion of myocardial infarction the following criteria with a clinical prese ntation consistent with acute myocardial ischemia meets the diagnosis for a myocardial infarction (CT). Detection of a rise and/or fall of [...] additional sample may be indicated. Reference: Third [place] Definition of Myocardial Infarction. Journal of the [place] [employer] 2012;60:1581-98 Specimen Anatomical Collection Method Collection Time Receive d Time (Source) Location / / Volume Laterality Blood 12/09/2021 6:18 AM 2 6:33 EDT AM EDT Resulting Agency Comment Spec In Lab Iker Cuevas MD CHEMISTRY ORDERABLES Performing Organization Address City/State/ZIP Code Phon e Number [place] [phone] [facility] LAB[address]ORY Drive XR Chest [...] assistant that requested your imaging first. ? Narrative [...] care assistant that requested your imaging first. Amber Sanches MD IMG DX ORDERABLES (ABNORMAL) BLOOD GAS 2 ARTERIAL (12/09/2021 5:14 AM EDT) Analysis Performed At Patho logist Time Signature pH Art 7.43 7.35 - [facility] 7.45 [facility] LABORATORY pCO2 Art 36 35 - 45 [facility] mmHg [facility] LABORATORY pO2 Art 67 (L) 85 - 104 [facility] LABORATORY HCO3 Art 23.4 20.0 - [facility] 26.0 [facility] mmol/L [facility] LABORATORY BE Art -0.9 -3.0 - 3.0 [facility] mmol/L [facility] LABORATORY Hgb Blood Gas 13.2 (L) 13.7 - [facility] 16.5 g/dL [facility] O2HB Art 91.3 (L) 94.0 - [facility] 97.0 % [facility] LABORATORY COHB Art 0.4 % [facility] FIO2 Art 35 % [facility] LABORATORY Flow Art 8.0 LPM [facility] LABORATORY PF Ratio Art 191 [facility] LABORATORY Specimen Anatomical Collection Method Collection Time Receive d Time (Source) Location / / Volume Laterality Blood 12/09/2021 5:14 AM 2 5:14 EDT AM EDT Iker Cuevas MD CHEMISTRY ORDERABLES Performing Organization Address City/[facility] [place] [address] POCT Glucose (12/09/2021 4:46 AM EDT) P athologist Signature POC Glucose 198 65 - 199 [facility] mg/dL [facility] LABORATORY Comment: Supplemental ranges: <140 mg/dL before meals <180 mg/dL all other times of the day Specimen Anatomical Collection Method Collection Time Receive d Time (Source) Location / / Volume Laterality Blood 12/09/2021 4:46 AM 2 4:46 EDT AM EDT Iker Cuevas MD POINT OF CARE TEST ORDERABLE S Performing Organization Address City/[facility]/[place]IP [place] [address] (ABNORMAL) POCT Glucose (12/09/2021 3:01 AM EDT) P athologist Signature POC Glucose 225 (H) 65 - 199 [facility] mg/dL [facility] LABORATORY Comment: Supplemental ranges: <140 mg/dL before meals <180 mg/dL all other times of the day Specimen Anatomical Collection Method Collection Time Receive d Time (Source) Location / / Volume Laterality Blood 12/09/2021 3:01 AM 2 3:01 EDT AM EDT Iker Cuevas MD POINT OF CARE TEST ORDERABLE S Performing Organization Address City/State/ZIP [place] [address] (ABNORMAL) POCT Glucose (12/08/2021 10:55 PM EDT) athologist Signature POC Glucose 327 (H) 65 - 199 [facility] mg/dL [facility] LABORATORY Comment: Supplemental ranges: <140 mg/dL before meals <180 mg/dL all other times of the day Specimen Anatomical Collection Method Collection Time Receive d Time (Source) Location / / Volume Laterality Blood 12/08/2021 10:55 12/08/2021 PM EDT 10:55 PM EDT Iker Cuevas MD POINT OF CARE TEST ORDERABLE S Performing Organization Address City/State/ZIP Code Phon e Number [address] Heparin (unfractionated) Level (12/08/2021 10:03 PM EDT) athologist [facility] Heparin UFH 0.18 IU/mL [facility] LABORATORY Comment: Heparin (anti-Xa) levels should be [...] [place] [address] (ABNORMAL) Troponin (12/08/2021 10:03 PM EDT) athologist Signature Troponin-T 0.92 (H) 0.00 - [place] DAVIS 0.00 ng/mL [facility] LABORATORY Comment: The 99th percentile for Troponin T is le ss than 0.01 ng/mL, any detectable cTnT concentration using this assay should be considered elevated. According to the third universal definit ion of myocardial infarction the following criteria with a clinical prese ntation consistent with acute myocardial ischemia meets the diagnosis for a myocardial infarction (CT). Detection of a rise and/or fall of [...] additional sample may be indicated. Reference: Third [place] Definition of Myocardial Infarction. Journal of the [place] [employer] 2012;60:1581-98 Specimen Anatomical Collection Method Collection Time Receive d Time (Source) Location / / Volume Laterality Blood 12/08/2021 10:03 12/08/2021 PM EDT 10:31 PM EDT Resulting Agency Comment Spec In Lab Iker Cuevas MD CHEMISTRY ORDERABLES Performing Organization Address City/State/[place] [address] (ABNORMAL) POCT Glucose (12/08/2021 8:22 PM EDT) athologist Signature POC Glucose 429 (H) 65 - 199 [place] mg/dL [facility] LABORATORY Comment: Supplemental ranges: <140 mg/dL before meals <180 mg/dL all other times of the day Specimen Anatomical Collection Method Collection Time Receive d Time (Source) Location / / Volume Laterality Blood 12/08/2021 8:22 PM 2 8:22 EDT PM EDT Iker Cuevas MD POINT OF CARE TEST ORDERABLE S Performing Organization Address City/State/ZIP Code Phon e Number [address] (ABNORMAL) POCT Glucose (12/08/2021 7:06 PM EDT) athologist Signature POC Glucose 442 (H) 65 - 199 [facility] mg/dL [facility] LABORATORY Comment: Supplemental ranges: <140 mg/dL before meals <180 mg/dL all other times of the day Specimen Anatomical Collection Method Collection Time Receive d Time (Source) Location / / Volume Laterality Blood 12/08/2021 7:06 PM 2 7:06 EDT PM EDT Iker Cuevas MD POINT OF CARE TEST ORDERABLE S Performing Organization Address City/[facility]/ZIP [place] [address] Magnesium (12/08/2021 6:02 PM EDT) athologist Signature Magnesium 0.86 0.69 - 1.07 [facility] mmol/L [facility] LABORATORY Specimen Anatomical Collection Method Collection Time Receive d Time (Source) Location / / Volume Laterality Blood 12/08/2021 6:02 PM 2 6:36 EDT PM EDT Resulting Agency Comment Spec In Lab Iker Cuevas MD CHEMISTRY ORDERABLES Performing Organization Address City/State/ZIP [place] [address] (ABNORMAL) Basic Metabolic Panel (non-fasting) (12/08/2021 6:02 PM EDT) athologist Signature Glucose Lvl 392 (H) 65 - 199 [facility] mg/dL [facility] LABORATORY Comment: Diabetes: >=200 mg/dL plus symp toms BUN 41 (H) 10 - 20 mg/dL [facility] LABORATORY Creatinine 1.44 0.80 - 1.50 [...] Gap 16 (H) 5 - 15 mmol/L [facility] [...] Organization Address City/State/[place] [address] (ABNORMAL) Differential, Automated (12/08/2021 6:02 PM EDT) [facility] gist Method Time Signature Neutrophils % 89.5 % [facility] LABORATORY Neutr Abs (ANC) 13.97 (H) 1.70 - [facility] 6.10 [facility] x10(3)/[facility] L LABORATORY Lymphocytes % 3.7 % [facility] LABORATORY Lymphocytes Abs 0.6 (L) 0.9 - 3.2 [facility] x10(3)/[facility] LABORATORY Monocytes % 6.1 % [facility] LABORATORY Monocyte Abs 1.0 (H) 0.3 - 0.9 [facility] x10(3)/[facility] LABORATORY Eosinophils % 0.0 % [facility] LABORATORY Eosinophils Abs 0.0 0.0 - 0.4 [facility] x10(3)/[facility] LABORATORY Basophils % 0.2 % [facility] LABORATORY Basophils Abs 0.0 0.0 - 0.1 [facility] x10(3)/[facility] LABORATORY Immature Gran % 0.50 [...] Gran Abs 0.08 (H) 0.00 - 0.04 x10(3)/[facility] LABORATORY Specimen Anatomical Collection Method Collection Time Receive d Time (Source) Location / / Volume Laterality Blood 12/08/2021 6:02 PM 2 6:36 EDT PM EDT Resulting Agency Comment Spec In Lab Morgan BROWN HEMATOLOGY ORDERABLES Performing Organization Address City/State/[place] [address] (ABNORMAL) Hemogram (12/08/2021 6:02 PM EDT) Analysis Performed At Patho logist Time Signature WBC 15.6 (H) 4.0 - 9.5 [facility] x10(3)/[facility] LABORATORY RBC 4.05 (L) 4.58 - [facility] 5.54 [facility] x10(6)/[facility] LABORATORY Hemoglobin 11.8 (L) 13.7 - [facility] 16.5 g/dL [facility] LABORATORY Hematocrit 35.8 (L) 40.5 - [facility] 48.5 % [facility] LABORATORY MCV 88.4 82.9 - [facility] 93.1 [facility] LABORATORY MCH 29.1 27.5 - [facility] ZHAORYAN 32.1 pg [facility] LABORATORY MCHC 33.0 32.0 - [facility] 35.7 g/dL [facility] LABORATORY Platelets 178 145 - 357 [facility] x10(3)/[facility] LABORATORY RDWSD 49.3 (H) 36.0 - [facility] 45.0 [facility] LABORATORY RDWCV 15.1 (H) 11.4 - [facility] 13.8 % [facility] LABORATORY MPV 10.4 7.6 - 12.9 [facility] LABORATORY nRBC % Auto 0.0 % [facility] LABORATORY nRBC Abs Auto 0.000 0.000 - [facility] 0.000 [facility] x10(3)/[facility] LABORATORY Specimen Anatomical Collection Method Collection Time Receive d Time (Source) Location / / Volume Laterality Blood 12/08/2021 6:02 PM 6:36 EDT PM EDT Resulting Agency Comment Spec In Lab Morgan BROWN HEMATOLOGY ORDERABLES Performing Organization Address City/State/[place] [address] (ABNORMAL) Troponin (12/08/2021 6:02 PM EDT) athologist Signature Troponin-T 0.89 (H) 0.00 - [place] RYAN 0.00 ng/mL [facility] LABORATORY Comment: The 99th percentile for Troponin T is le ss than 0.01 ng/mL, any detectable cTnT concentration using this assay should be considered elevated. According to the third universal definit ion of myocardial infarction the following criteria with a clinical prese ntation consistent with acute myocardial ischemia meets the diagnosis for a myocardial infarction (CT). Detection of a rise and/or fall of [...] additional sample may be indicated. Reference: Third [place] Definition of Myocardial Infarction. Journal of the [place] [employer] 2012;60:1581-98 Specimen Anatomical Collection Method Collection Time Receive d Time (Source) Location / / Volume Laterality Blood 12/08/2021 6:02 PM 6:36 EDT PM EDT Resulting Agency Comment Spec In Lab Iker Cuevas MD CHEMISTRY ORDERABLES Performing Organization Address City/State/ZIP Code Phon e Number [place] [id number] COVID-19 PCR (12/08/2021 5:00 PM EDT) [facility] Method Time Signature SARS-CoV-2 Not Detected Not Detected [facility] RNA PCR [facility] LABORATORY [...] using the Simplexa COVID-19 Direct Assay by [employer] as authorized by the FDA issued Emergency [...] of Pathology and Laboratory Medicine at [facility], certified under the Clinical Laboratory [...] fact sheets at the following FDA website: https://www.fda.gov/medical-devices/evpxnpkmily-dvrpdoy-0642-enfnl-66-eqlzqsbbx- bvz-fpksczytndnxsx-qoayjpp-devices/fyfrf-wvuebbzsbzb-bjik SARS-CoV-2 Source BI REPORT DEVELOPER Swab [facility] Specimen (Source) Anatomical Collection Method Collection Time Re ceived Time Location / / Volume Laterality Nasopharyngeal Swab 12/08/2021 5:00 12/08 PM EDT 6:03 PM EDT Comment: Symptoms->Surveillance Resulting Agency Comment Spec In Lab Iker Cuevas MD MICROBIOLOGY - GENERAL ORDER [place] Performing Organization Address City/State/[place] [address] EKG 12 Lead (12/08/2021 4:40 PM EDT) Component Value Ref Range Test Analysis Performed Pathologis t Method Time At Signature Ventricular rate 78 BPM MUSE SYSTEM Atrial Rate 78 BPM MUSE SYSTEM P-R Interval 152 ms MUSE SYSTEM QRS Duration 96 ms MUSE SYSTEM Q-T Interval 396 ms MUSE SYSTEM QTC Calculated 451 ms MUSE SYSTEM (Bezet) Calculated P Agate 44 degrees MUSE SYSTEM Calculated R Agate -31 degrees MUSE SYSTEM Calculated T Agate 124 degrees MUSE SYSTEM INTERPRETATION Normal sinus [...] Glucose 400 (H) 65 - 199 [facility] mg/dL [facility] LABORATORY Comment: Supplemental ranges: <140 mg/dL before meals <180 mg/dL all other times of the day Specimen Anatomical Collection Method Collection Time Receive d Time (Source) Location / / Volume Laterality Blood 12/08/2021 4:34 PM 2 4:34 EDT PM EDT Iker Cuevas MD POINT OF CARE TEST ORDERABLE S Performing Organization Address City/State/[place] [address] documented in this encounter [...] Given 11/23 10:30 AM EDT 300 mcg (RESEARCH GROUP DIRECTOR) ONCE PRN, Starting on Wed12/10/21 at 1030, [...] 12/12/2021 acetaminophen (Tylenol) tablet 650 mg 0805 ([facility] Hold - Provider: Admin Adt - Reason: Transfer to a Procedural area)1230 ([facility] Unhold - Provider: Admin Adt) 650 mg, [...] - Reason: Transfer to a Procedural area)1230 ([facility] Unhold - Provider: Admin Adt) 10 mg, [...] - Provider: Mendy Schaffer)0952 (Given - Provider: eMndy Schaffer) ONCE PRN, Starting on Wed12/10/21 at [...] (Intra-Procedure), Routine niCARdipine (Cardene) (100 mcg/mL) dilution (RESEARCH GROUP DIRECTOR) (CANCELED) 1030 (Given - Provider: Vitaliy Nobles [...] episode. & nbsp; For persistent hypoglycemia, con chief cruiser longer-acting treatment for the duration of the [...]
Routine documented in this encounter Care Teams Washing And Screening Plant Supervisor Relationship Specialty Start Date End Date Lovely Vicente MD PCP - General 04/16/[address] [place] [address] documented as of this encounter
--- OUTSIDE RECORDS SUMMARY | 2022-04-08 08:47 | XMS_ITS | Encounter Summary ---
:1945 Author Organization [facility] [place] [address] Care Team Providers Name Role Phone Lovely Vicente MD Primary Care Provider Encounter Details Date Type Department Care Team Description 03/20/2021 Ancillary Procedure Radiology Library [place] [address] [place] [address] [phone] Social History Tobacco Use Types Packs/Day Years [...] [facility] [place] [address] (Wo rk) 05/28/2022 Laboratory Appointment Lab 05/28/2022 Office Visit Cardiology Zulma Dolan MD [facility] [place] [address] Liz Poole PA [facility] [place] [address] 06/10/2022 Office Visit Dermatology Laura Scherer MD [facility] ER [address] [place], [place] [address] (Wo rk) documented as [...] Organization Address City/State/ZIP Code Phon e Number [place], [place] documented in this encounter Visit Diagnoses Not on filedocumented in this encounter Care Teams Electric Cell Tender Relationship Specialty Start Date End Date Lovely Vicente MD PCP - General 04/16/[address] [place] [address] documented as of this encounter
--- OUTSIDE RECORDS SUMMARY | 2022-04-08 08:47 | XMS_ITS | Encounter Summary ---
:1945 Author Organization [facility] [place] [address] Care Team Providers Name Role Phone Lovely Vicente MD Primary Care Provider Encounter Details Date Type Department Care Team Description 12/08/2021 External Results Non-Invasive Cardiology Lab Mar y None [facility] [place] [address] Social History Tobacco Use Types Packs/Day [...] [facility] [place], [place] [address] (Wo rk) 05/28/2022 Laboratory Appointment Lab 05/28/2022 Office Visit Cardiology Zulma Dolan MD [facility] [place] [address] Liz Poole PA [facility] [place] [address] 06/10/2022 Office Visit Dermatology Laura Scherer MD [facility] [address] [place], [place] [address] (Wo rk) documented as of [...] filedocumented in this encounter Care Teams Meat Soaker Relationship Specialty Start Date End Date Lovely Vicente MD PCP - General 04/16/[address] [place] [address] documented as of this encounter
--- OUTSIDE RECORDS SUMMARY | 2022-04-08 08:48 | XMS_ITS | Encounter Summary ---
:1945 [place] [address] Care Team Providers Name Role Phone Lovely Vicente MD Primary Care Provider Reason for Visit Reason Comments Skin Cancer Examination Encounter Details Date Type Department Care Team Description 03/20/2021 Office Visit Dermatology at [facility] Brennen Rene MD History of melanoma; [facility] History of dysplastic nevus; [address] Multiple benign nevi; [place] [address] 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 Last visit at [facility] Derm: 01/02/2020 Medications: Reviewed in [...] FSE; history of Melanoma []Note routed to escrow secretary [x]Recall has been placed in scheduling system []Appointment scheduled at checkout Scribe attestation: Yoana Pang LPN has performed the documentation for this encounter in the presence of and acting as a scribe for LAURA RENE MD I performed the above scribed service and agree with the accuracy of the documentation in this encounter. Reviewed and signed by: LAURA RENE MD Dermatology [facility] documented in this encounter Plan of Treatment Upcoming Encounters Date Type Specialty Care Team Description 05/28/2022 Appointment Cardiology TrudiZulma Knowles MD [facility] [place], [place] [address] (Wo rk) 05/28/2022 Laboratory Appointment Lab 05/28/2022 Office Visit Cardiology Zulma Dolan MD [facility] [place] [address] Liz Poole PA [facility] [place] [address] 06/10/2022 Office Visit Dermatology Laura Rene MD [facility] DR [address] [place], [place] [address] (Wo rk) documented as of this encounter Visit Diagnoses Diagnosis History of melanoma Personal history of malignant melanoma o f skin History of dysplastic nevus Personal history of diseases of skin and subcutaneous tissue Multiple benign nevi Benign neoplasm of skin, site unspecifie d [place] (seborrheic keratosis) Other seborrheic keratosis [place] (actinic keratosis) Actinic keratosis documented in this encounter Care Teams Reinsurance Analyst Relationship Specialty Start Date End Date Lovely Vicente MD PCP - General 04/16/[address] [place] [address] documented as of this encounter
--- OUTSIDE RECORDS SUMMARY | 2022-04-08 08:48 | XMS_ITS | Encounter Summary ---
:1945 [place] [address] Care Team Providers Name Role Phone Lovely Vicente MD Primary Care Provider Encounter Details Date Type Department Care Team Description 08/15/2018 Laboratory App[facility]ment [facility] [place] [address] Social History Tobacco Use Types Packs/Day [...] Description 05/28/2022 Appointment Cardiology Zulma Dolna MD [facility] er [place], [place] [address] (Wo rk) 05/28/2022 Laboratory Appointment Lab 05/28/2022 Office Visit Cardiology Zulma Dolan MD [facility] [place] [address] Liz Poole PA [facility] [place] [address] 06/10/2022 Office Visit Dermatology Laura Scherer MD [facility] ER DR [address] [place], [place] [address] (Wo rk) documented as of this encounter Procedures Procedure Name Priority Date/Time Associated Diagnosis Comme nts PROTHROMBIN TIME Routine 08/15/2018 8:04 AM Resul ts for this EST procedure are i n the results section. documented in this encounter Results (ABNORMAL) Prothrombin Time (08/15/2018 8:04 AM EST) P athologist Signature PT 24.0 (H) 9.4 - 12.5 [facility] LABORATORY INR 2.1 [place] [...] Organization Address City/State/[place] [address] documented in this encounter Visit Diagnoses Not on filedocumented in this encounter Care Teams Development Expert Relationship Specialty Start Date End Date Lovely Vicente MD PCP - General 04/16/[address] [place] [address] documented as of this encounter
--- OUTSIDE RECORDS SUMMARY | 2022-04-08 08:48 | XMS_ITS | Encounter Summary ---
:1945 [place] [address] Care Team Providers Name Role Phone Lovely Vicente MD Primary Care Provider Encounter Details Date Type Department Care Team Description 11/29/2017 Hospital Encounter Radiology Library at Estefany Maxwell Pain [facility] TIMBER FRAMER HELPER [facility] [place] [address] CARDIOLOGY [phone] [place], [place] [address] (Wo rk) Social History [...] Cardiology Zulma Dolan MD [facility] [place], [place] [address] (Wo rk) 05/28/2022 Laboratory Appointment Lab 05/28/2022 Office Visit Cardiology Zulma Dolan MD [facility] [place] [address] Liz Poole PA [facility] [place] [address] 06/10/2022 Office Visit Dermatology Laura Scherer MD [facility] DR [address] [place], [place] [address] (Wo rk) documented as [...] Address City/State/ZIP Code Phon e Number [place], [place] documented in this encounter Visit Diagnoses Diagnosis Pain Generalized pain documented in this encounter Care Teams Lace And Textiles Restorer Relationship Specialty Start Date End Date Lovely Vicente MD PCP - General 04/16/[address] [place] [address] documented as of this encounter
--- OUTSIDE RECORDS SUMMARY | 2022-04-08 08:48 | XMS_ITS | Encounter Summary ---
:1945 Author Organization [facility] [place] [address] Care Team Providers Name Role Phone Lovely Vicente MD Primary Care Provider Encounter Details Date Type Department Care Team Description 08/15/2018 Laboratory Lab 3L [place] Chronic systoli c heart failure; Appointment [facility] ASCVD (ar teriosclerotic cardiovascular disease) [place] [address] Social History Tobacco Use Types [...] Cardiology Zulma Dolan MD [facility] er [place], [place] [address] (Wo rk) 05/28/2022 Laboratory Appointment Lab 05/28/2022 Office Visit Cardiology Zulma Dolan MD [facility] [place] [address] Liz Poole PA [facility] [place] [address] 06/10/2022 Office Visit Dermatology Laura Scherer MD [facility] ER DR [address] [place], [place] [address] (Wo rk) documented as of [...] Glucose Lvl 116 65 - 199 [facility] mg/dL [facility] [...] LABORATORY Estimated GFR 68 >=60 mL/min/1.73 m?? [facility] Comment: The eGFR was calculated using the CKD-EP I equation. As with all creatinine based estimates of kidney function, eGFR values calculated with the CKD-EPI equation are not accurate in patients wi th acute kidney failure, extremes of body mass or the acutely ill. http://Umami/[facility] HOBARTnkf eGFR 79 >=60 mL/min/1.73 m?? [facility] Comment: The eGFR was calculated using the CKD-EP I equation. As with all creatinine based estimates of kidney function, eGFR values calculated with the CKD-EPI equation are not accurate in patients wi th acute kidney failure, extremes of body mass or the acutely ill. http://Umami/[facility] HOBARTnkf Specimen Anatomical Collection Method Collection Time Receive d Time (Source) Location / / Volume Laterality Blood specimen 08/15/2018 8:04 AM 019 8:20 (specimen) EST AM EST Resulting Agency Comment Spec In Lab Danette Maxwell APRN CHEMISTRY ORDERABLES Performing Organization Address City/State/[place] [address] Lipid Panel (08/15/2018 8:04 AM EST) P athologist Signature Chol, Total 75 mg/dL [facility] Comment: Lower Risk: <200 mg/dL Average Risk: 200-239 mg/dL Higher Risk: >qr=753 mg/dL Triglycerides 185 mg/dL [facility] LABOR[facility] Comment: Average Risk/Lower Risk: <150 mg/dL Borderline High Risk: 150-199 mg/dL High Risk: 200-499 mg/dL Very High Risk: >we=653 mg/dL HDL 32 mg/dL [facility] Comment: Males: ?? Higher Risk: <40 mg/dL Females: ?? HIgher Risk: <50 mg/dL LDL Cholesterol 6 mg/dL [facility] Comment: Lowest Risk: <100 mg/dL Lower Risk: 100-129 mg/dL Borderline High Risk: 130-159 mg/dL High Risk: 160-189 mg/dL Very High Risk: >wm=827 mg/dL Chol/HDL Ratio 2.3 ratio [facility] Lipid Interpretation See Note [facility] Comment: Lipid management should be guided by a p atient? s ASCVD risk, goals and preferences. ACC/AHA Guidelines recommend high intens ity statin if clinical ASCVD or LDL greater than or equal to 190 mg/dL. http://Exposed Vocals.com/ZHH-CPJ-Utitczagw Adults aged 40-75 with LDL 70-189 mg/dL should have their 10 year ASCVD risk estimated with the ACC/AHA ASCVD risk es timator http://tools.acc.org/SFWPK-Gzak-Ycllqutv r/ Statin should be discussed if risk [...] Organization Address City/State/[place] [address] (ABNORMAL) pro-Brain Natriuretic Peptide (08/15/2018 8:04 AM EST) athologist Signature ProBNP 1,797 (H) <=125 [facility] pg[facility]mL [facility] LABORATORY Specimen Anatomical Collection Method Collection Time Receive d Time (Source) Location / / Volume Laterality Blood specimen 08/15/2018 8:04 AM 019 8:20 (specimen) EST AM EST Resulting Agency Comment Spec In Lab Danette Maxwell APRN CHEMISTRY ORDERABLES Performing Organization Address City/State/[place] [address] documented in this encounter Visit Diagnoses Diagnosis Chronic systolic heart failure ASCVD (arteriosclerotic cardiovascular d isease) Unspecified cardiovascular disease documented in this encounter Care Teams Chemical Preparer Relationship Specialty Start Date End Date Lovely Vicente MD PCP - General 04/16/[address] [place] [address] documented as of this encounter
--- OUTSIDE RECORDS SUMMARY | 2022-04-08 08:48 | XMS_ITS | Encounter Summary ---
:1945 Author Organization [facility] [address] Care Team Providers Name Role Phone Lovely Vicente MD Primary Care Provider Encounter Details Date Type Department Care Team Description 01/16/2019 Laboratory Appointment Lab 3L [facility] [place] [address] Social History Tobacco Use Types Packs/Day Years [...] Dolan MD [facility] er [place], [place] [address] (Wo rk) 05/28/2022 Laboratory Appointment Lab 05/28/2022 Office Visit Cardiology Zulma Dolan MD [facility] [place] [id number] Liz Poole PA [facility] [place] [address] 06/10/2022 Office Visit Dermatology Laura Scherer MD [facility] ER DR [address] [place], [place] [address] (Wo rk) documented as of [...] Organization Address City/State/[place] [address] (ABNORMAL) Basic Metabolic Panel (non-fasting) (01/16/2019 7:49 AM EDT) athologist Signature Glucose Lvl 105 65 - 199 [facility] mg/dL [facility] Comment: [...] of body mass or the acutely ill. http://Armetheon/FX Bridgenkf eGFR 79 >=60 mL/min/1.73 m?? [facility] LAB[facility] Comment: The eGFR was calculated using the CKD-EP I equation. As with all creatinine based estimates of kidney function, eGFR values calculated with the CKD-EPI equation are not accurate in patients wi th acute kidney failure, extremes of body mass or the acutely ill. http://Armetheon/FX Bridgenkf Specimen Anatomical Collection Method Collection Time Receive d Time (Source) Location / / Volume Laterality Blood specimen 01/16/2019 7:49 AM 019 7:55 (specimen) EDT AM EDT Resulting Agency Comment Spec In Lab Danette Maxwell APRN CHEMISTRY ORDERABLES Performing Organization Address City/State/[place] [address] documented in this encounter Visit Diagnoses Diagnosis Chronic systolic heart failure documented in this encounter Care Teams Latex Caster Relationship Specialty Start Date End Date Lovely Vicente MD PCP - General 04/16/[address] [place] [address] documented as of this encounter
--- OUTSIDE RECORDS SUMMARY | 2022-04-08 08:48 | XMS_ITS | Encounter Summary ---
:1945 Author Organization [facility] [place] [address] Care Team Providers Name Role Phone Lovely Vicente MD Primary Care Provider Encounter Details Date Type Department Care Team Description 11/29/2017 Hospital Encounter Vascular Lab at [facility] (peripheral [facility], [facility]T artery [facility]) [place] [address] Social History Tobacco Use Types Packs/Day Years [...] Care Team Description 05/28/2022 Appointment Cardiology Zulma Doaln MD [facility] [address] [place], [place] [address] (Wo rk) 05/28/2022 Laboratory Appointment Lab 05/28/2022 Office Visit Cardiology Zulma Dolan MD [facility] [place] [address] Liz Poole PA [facility] [place] [address] 06/10/2022 Office Visit Dermatology Laura Scherer MD [facility] DR [address] [place], [place] [address] (Wo rk) documented as of [...] At [facility] Method Time Signature VB Text Department: Vascular Surgery Lab VASCUBASE Report Patient: [id number] (DON HOANG) CPT: 05472 ICD10: I72.4;I73.9 Referring Physician: DANETTE MAXWELL ?? [...] unspecified documented in this encounter Care Teams Consulting Manager Relationship Specialty Start Date End Date Lovely Vicente MD PCP - General 04/16/[address] [place], [place] [address]Y [facility] [address] [place] [address] documented as of this encounter
--- OUTSIDE RECORDS SUMMARY | 2022-04-08 08:48 | XMS_ITS | Encounter Summary ---
:1945 Author Organization [facility] Address [facility] [place] [address] Care Team Providers Name Role Phone Lovely Vicente MD Primary Care Provider Encounter Details Date Type Department Care Team Description 10/07/2017 Office Visit Cardiology at [facility] Danette Maxwell Chronic systolic heart failu re; [facility] A, POLICY SERVICES REPRESENTATIVE S/P CABG x 3; Drive [facility] On amiodarone therapy; [place], [place] Atrial fibrillation, unspecified type; [address] CARDIOLOGY ASCVD (arteriosclerotic cardiovascular d isease) [phone] [place], [place] [address] Social History Tobacco Use [...] - documented in this encounter Progress Notes [place] Danette A, POLICY SERVICES REPRESENTATIVE - 10/07/2017 11:20 AM EDT ID and [...] painful and 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 [...] by Dr. Espino On IV antibiotics at [facility] Today: Mr. Fatima is [...] and bone removal by Dr. Aguero at [facility]. Currently receiving IV antibiotics at [facility] ? Plan: 1. A [...] Cardiology Zulma Dolan MD [facility] [place], [place] [address] (Wo rk) 05/28/2022 Laboratory Appointment Lab 05/28/2022 Office Visit Cardiology Zulma Dolan MD [facility] [place] [address] Liz Poole PA [facility] [place] [address] 06/10/2022 Office Visit Dermatology Laura Scherer MD [facility] DR [address] [place]LOG[address] [place], [place] [address] (Wo rk) documented as of this encounter Results (ABNORMAL) Basic Metabolic Panel (non-fasting) (10/07/2017 8:48 AM EDT) athologist Signature Glucose Lvl 99 65 - 199 [facility] mg/dL [facility] Comment: [...] [facility] Estimated GFR >60 >=60 [facility] Comment: The reported eGFR should be multiplied b y 1.2 for patients. The MDRD is not an appropriate measure o f renal function for patients with body mass extremes or in patients with acute kidney failure. http://Bracketz.ReliSen/DHnkdep http://Infinity Wireless Ltd/DHMCnkf Specimen Anatomical Collection Method Collection Time Receive d Time (Source) Location / / Volume Laterality Blood specimen 10/07/2017 8:48 AM 018 8:50 (specimen) EDT AM EDT Resulting Agency Comment Spec In Lab Danette Maxwell APRN CHEMISTRY ORDERABLES Performing Organization Address City/State/[place] [address] (ABNORMAL) pro-Brain Natriuretic Peptide (10/07/2017 8:48 AM EDT) P athologist Signature ProBNP 1,170 (H) <=125 [facility] pg/mL [facility] LABOR[facility] Specimen Anatomical Collection Method Collection Time Receive d Time (Source) Location / / Volume Laterality Blood specimen 10/07/2017 8:48 AM 018 8:50 (specimen) EDT AM EDT Resulting Agency Comment Spec In Lab Danette Maxwell APRN CHEMISTRY ORDERABLES Performing Organization Address City/State/[place] [address] documented in this encounter Visit Diagnoses Diagnosis Chronic systolic heart failure S/P CABG x 3 Postsurgical aortocoronary bypass status On amiodarone therapy Atrial fibrillation, unspecified type ASCVD (arteriosclerotic cardiovascular d isease) Unspecified cardiovascular disease documented in this encounter Care Teams Piledriver Carpenter Relationship Specialty Start Date End Date Lovely Vicente MD PCP - General 04/16/[address] [place] [address] documented as of this encounter
--- OUTSIDE RECORDS SUMMARY | 2022-04-08 08:48 | XMS_ITS | Encounter Summary ---
:1945 Author Organization [facility] [place] [address] Care Team Providers Name Role Phone Lovely Vicente MD Primary Care Provider Reason for Referral Consultation (Routine) - Specialty Diagnoses / Procedures Referred By Contact Refer red To Contact Wound Healing Center Diagnoses Atheroembolism of foot, right Delayed surgical wound healing, subsequent encounter Aurelia Rivera PA [address] [facility] [place] [address] Referral ID Status Reason Start Date Expiration Date Visits V isits Requested Authorized [id number] Consult, 09/08/2017 03/07/2018 1 1 Test & Treat Reason for Visit Reason Comments Wound Check My foot hurts Encounter Details Date Type Department Care Team Description 09/07/2017 Office Visit Vascular Surgery at MiguelAurelia PA Atheroembolism of foot, right; [facility] [address] [facility] Delayed surgical wound healing, subseque nt encounter [facility] [place] [address] [phone] Social History Tobacco Use Types Packs/Day Years [...] at home for VAC dressing changes from [facility]. Since his last visit his right forefoot wound VAC care has improved and [facility] nurses have maintained a better seal with [...] by Manny Mcknight MD at [facility] OR Social Hx: Social History [...] MD [facility] [place], [place] [address] (Wo rk) 05/28/2022 Laboratory Appointment Lab 05/28/2022 Office Visit Cardiology Zulma Dolan MD [facility] [place] [address] Liz Poole PA [facility] [place] [address] 06/10/2022 Office Visit Dermatology Laura Scherer MD [facility] [address] [place], [place] [address] (Wo rk) Scheduled Referrals Name Type Priority Associated Diagnoses Order S chedule Referral to Wound Outpatient Referral Routine Atheroembolism o f foot, Ordered: Clinic right 09/08/2017 Delayed surgical wound healing, subsequent encounter documented as of this encounter Visit Diagnoses Diagnosis Atheroembolism of foot, right Delayed surgical wound healing, subseque nt encounter documented in this encounter Care Teams Food Critic Relationship Specialty Start Date End Date Lovely Vicente MD PCP - General 04/16/[address] [facility] [place] [address] documented as of this encounter
--- OUTSIDE RECORDS SUMMARY | 2022-04-08 08:48 | XMS_ITS | Encounter Summary ---
:1945 Author Organization [facility] [address] Care Team Providers Name Role Phone Lovely Vicente MD Primary Care Provider Reason for Referral Diagnostic Test (Routine) - Closed Specialty Diagnoses / Procedures Referred By Contact Refer red To Contact Cardiology Diagnoses Ischemic cardiomyopathy Acute on chronic systolic congestive heart failure Danette Maxwell APRN [facility] Non-Inv Card Lab Procedures Echocardiogram Transthoracic(Leb) [facility] [place] [address] [place] [address] Referral ID Status Reason Start Date Expiration Date Visits V isits Requested Authorized [id number] Closed Specialty 08/30/2017 08/30/2018 1 1 Service Requested Reason for Visit Diagnostic Test (Routine) - Closed Specialty Diagnoses / Procedures Referred By Contact Refer red To Contact Cardiology Diagnoses Ischemic cardiomyopathy Acute on chronic systolic congestive heart failure Danette Maxwell APRN [facility] Non-Inv Card Lab Procedures Echocardiogram Transthoracic(Leb) [facility] [place] [address] [place] [address] Referral ID Status Reason Start Date Expiration Date Visits V isits Requested Authorized [id number] Closed Specialty 08/30/2017 08/30/2018 1 1 Service Requested Encounter Details Date Type Department Care Team Description 10/07/2017 Hospital Encounter Non-Invasive Ischemic cardiomyopathy; Cardiology Lab Barbara Craig on chronic systolic [place] [address] Social History Tobacco Use Types Packs/Day [...] Appointment Cardiology Zulma Dolan MD [facility] Medical [facility] [address] [place], [place] [address] (Wo rk) 05/28/2022 Laboratory Appointment Lab 05/28/2022 Office Visit Cardiology Zulma Dolan MD [facility] [place] [address] Liz Poole PA [facility] [place] [address] 06/10/2022 Office Visit Dermatology Laura Scherer MD [facility] [address] [place], [place] [address] (Wo rk) documented as of [...] Mccollum ? (Age): 1945(72y) Med Rec#: ? [id number] ?Sex: ?M ? Site Loc: ? [facility] ?Ht / Wt: ??173(cm)/82(kg) Pt. Loc: ?Echo Lab ?BSA: ?1.96 Study Date: ?? 10/07/2017 ?Pt. Type: Outpatient Tape: ? Referring: Danette Maxwell Reading: Iker Cuevas ([id number]) Research Home Economist: Yonathan Bocanegra Diagnosis: *ICD-10-PCS Ischemic cardiomyopathy (I2 [...] E-wave Vmax ?1.2 ?m/sec ? MV deceleration [id number] ?msec ? MV A-wave Vmax ?1 ?m/sec [...] ? Mid-Inferior ?Hypokinetic ? Mid-Inferoseptal ?Hypokinetic ? [place]-Septal ? Akinetic ? [place]-Anterior ? Hypokinetic ? [place]-Lateral ?Hypokinetic ? [place]-Inferior ? Hypokinetic ? [place]-Tip ?Akinetic ? This report has been electronically sign ed by: _ Iker Cuevas M.D. ? 10/07/2017 11:12:34 Images reviewed and interpretation verif ied [facility] Cardiac Ultrasound Laboratory Procedure Note Iker Cuevas MD - 10/07/2017Formatti ng of this note might be different from the original. Procedure: Transthoracic Echocardiogram Patient: NATALYA MCBRIDE(Age): [birth year]72y) Med Rec#: [id number] Sex: M Site Loc: [facility] Ht / Wt: 173(cm)/82(kg) Pt. Loc: Echo Lab BSA: 1.96 Study Date: 10/07/2017 Pt. Type: Outpati ent Tape: Referring: Danette Maxwell Reading: Iker Cuevas ([id number]) Research Home Economist: Yonathan Bocanegra Diagnosis: *ICD-10-PCS Ischemic cardiomyopathy (I2 [...] MV E-wave Vmax 1.2 m/sec MV deceleration [id number] msec MV A-wave Vmax 1 m/sec MV [...] Akinetic Mid-Posterolateral Hypokinetic Mid-Inferior Hypokinetic Mid-Inferoseptal Hypokinetic [place]-Septal Akinetic [place]-Anterior Hypokinetic [place]-Lateral Hypokinetic [place]-Inferior Hypokinetic [place]-Tip Akinetic This report has been electronically sign ed by: _ Iker Cuevas M.D. 10/07/2017 11:12 :34 Images reviewed and interpretation elvie hwang [facility] Cardiac Ultrasound Laboratory [...] Routine documented in this encounter Care Teams Scrap Burner Relationship Specialty Start Date End Date Lovely Vicente MD PCP - General 04/16/[address] [place] [address] documented as of this encounter
--- OUTSIDE RECORDS SUMMARY | 2022-04-08 08:48 | XMS_ITS | Encounter Summary ---
:1945 Author Organization [facility] [place] [address] Care Team Providers Name Role Phone Lovely Vicente MD Primary Care Provider Encounter Details Date Type Department Care Team Description 11/29/2017 Office Visit Cardiology at [facility] Annette Maxwell Chronic systolic congestive heart failure; [facility] A, CEMENT BASED MATERIALS PUMP TENDER ASCVD (arteriosclerotic cardiovascular d isease); [facility] Cardiomyopathy, ischemic; [place], [place] PAD (peripheral artery disease) [address] CARDIOLOGY [phone] [place], [place] [address] Social History Tobacco Use Types [...] in this encounter Progress Notes Annette Maxwell, CEMENT BASED MATERIALS PUMP TENDER - 11/29/2017 9:20 AM EDT ID and [...] painful and swollen right foot right d/t PATIENT CLERICAL ASSISTANT pseudoaneurysm with embolization to the right [...] greater saphenous vein (done at [facility]), debridement of right [...] x 80 10/25/2017: right popliteal-pedal bypass at [facility] ? Plan: 1. A review [...] Dolan MD [facility] [place], [place] [address] (Wo rk) 05/28/2022 Laboratory Appointment Lab 05/28/2022 Office Visit Cardiology Zulma Dolan MD [facility] [place] [address] Liz Poole PA [facility] [place] [address] 06/10/2022 Office Visit Dermatology Laura Scherer MD [facility] [address] [place], [place] [address] (Wo rk) documented as of this encounter Results Arterial Duplex Leg, Unil (11/29/2017 10:32 AM EDT) Component Value Ref Test Analysis Performed At [facility] Range Method Time Signature VB Text Department: Vascular Surgery Lab VASCUBASE Report Patient: [id number] (GREGORY HOANG) CPT: 48062 ICD10: I72.4;I73.9 Referring Physician: ANNETTE MAXWELL ?? [...] Glucose Lvl 217 (H) 65 - 199 [facility] mg/dL [facility] Comment: Diabetes: >=200 mg/dL plus symp toms BUN 26 (H) 10 - 20 mg/dL [facility] Creatinine 0.96 0.80 - [...] or in patients with acute kidney failure. [email or web address] [email or web address]/DHMCnkf Specimen Anatomical Collection Method Collection Time Receive d Time (Source) Location / / Volume Laterality Blood specimen 11/29/2017 8:22 AM 05/07/2 018 8:29 (specimen) EDT AM EDT Resulting Agency Comment Spec In Lab Annette Maxwell CEMENT BASED MATERIALS PUMP TENDER CHEMISTRY ORDERABLES Performing Organization Address City/State/[place] [address] (ABNORMAL) pro-Brain Natriuretic Peptide (11/29/2017 8:22 AM EDT) P athologist Signature ProBNP 1,769 (H) <=125 [facility] pg/mL [facility] Specimen Anatomical Collection Method Collection Time Receive d Time (Source) Location / / Volume Laterality Blood specimen 11/29/2017 8:22 AM 018 8:29 (specimen) EDT AM EDT Resulting Agency Comment Spec In Lab Annette Maxwell CEMENT BASED MATERIALS PUMP TENDER CHEMISTRY ORDERABLES Performing Organization Address City/[facility]/[place]IP [place] [address] documented in this encounter Visit Diagnoses Diagnosis Chronic systolic congestive heart failur e Chronic systolic heart failure ASCVD (arteriosclerotic cardiovascular d isease) Unspecified cardiovascular disease Cardiomyopathy, ischemic Other specified forms of chronic ischemi c heart disease PAD (peripheral artery disease) Peripheral vascular disease, unspecified documented in this encounter Care Teams Watch Dial Maker Relationship Specialty Start Date End Date Lovely Vicente MD PCP - General 04/16/[address] [place] [address] documented as of this encounter
--- OUTSIDE RECORDS SUMMARY | 2022-04-08 08:48 | XMS_ITS | Encounter Summary ---
:1945 Author Organization [facility] [place] [address] Care Team Providers Name Role Phone Lovely Vicente MD Primary Care Provider Encounter Details Date Type Department Care Team Description 08/26/2018 Transcribe Orders Laboratory Lovely Vicente, Deferred diagnosis [facility] on axis I [address] [address] [place], [place] [phone] [address] Social History Tobacco Use Types Packs/Day Years [...] Zulma Dolan MD [facility] [address] [place], [place] [address] (Wo rk) 05/28/2022 Laboratory Appointment Lab 05/28/2022 Office Visit Cardiology Zulma Dolan MD [facility] [place] [address] Liz Poole PA [facility] [place] [address] 06/10/2022 Office Visit Dermatology Laura Scherer MD [facility] [address] [place], [place] [address] (Wo rk) documented as of this encounter Visit Diagnoses Diagnosis Deferred diagnosis on axis I Other unknown and unspecified cause of m orbidity or mortality documented in this encounter Care Teams Reliability Technician Relationship Specialty Start Date End Date Lovely Vicente MD PCP - General 04/16/[address] [facility] [address] [place] [address] documented as of this encounter
--- OUTSIDE RECORDS SUMMARY | 2022-04-08 08:48 | XMS_ITS | Encounter Summary ---
:1945 Author Organization [facility] Address [facility] [place] [address] Care Team Providers Name Role Phone Lovely Vicente MD Primary Care Provider Reason for Referral Diagnostic Test (Routine) - Closed Specialty Diagnoses / Procedures Referred By Contact Refer red To Contact Cardiology Diagnoses Chronic systolic heart failure Danette Maxwell APRN [facility] Non-Inv Card Lab Procedures Echocardiogram Transthoracic(Leb) [facility] [place] [address] [place] [address] Referral ID Status Reason Start Date Expiration Date Visits V isits Requested Authorized [id number] Closed Specialty 07/17/2019 09/14/2019 1 1 Service Requested Encounter Details Date Type Department Care Team Description 01/16/2019 Office Visit Cardiology at [facility] Danette Maxwell, Chronic systolic heart failu re; [facility] STACIE Cardiomyopathy, ischemic; Drive [facility] Hx of thyroid cancer; [place], [place] DR ELMORE (arteriosclerotic heart disease); [phone] CARDIOLOGY MARIA VICTORIA (obstructive sleep apnea) on CPAP [phone] [place], [place] [address] (Wo rk) Social History Tobacco Use Types [...] K+ 4.6 today 6. Post-op atrial fibrillation [id number] (CHF, HTN, DM, vascular disease, thromboembolism) Amiodarone discontinued Continue coumadin INR managed by PCP. 2.1 today 7. PAD 08/06/2017: Right 1st, 2nd, 3rd toe amputation 08/11/2017: Left??femoral arterial access, RLE??angiogram, Balloon angioplasty of R PT with Eleazar 2.5 x 80 10/25/2017: right popliteal-pedal bypass at [facility] 8. Hypothyrodism S/p thyroidectomy for goiter Continue [...] Zulma Dolan MD [facility] [place], [place] [address] (Wo rk) 05/28/2022 Laboratory Appointment Lab 05/28/2022 Office Visit Cardiology Zulma Dolan MD [facility] [place] [address] Liz Poole PA [facility] [place] [address] 06/10/2022 Office Visit Dermatology Laura Scherer MD [facility] [address] [place], [place] [address] (Wo rk) documented as of this encounter Results ECHOCARDIOGRAM COMPLETE W CONTRAST (07/28/2019 8:19 AM EST) athologist Signature EF 40 [facility] Anatomical Region Laterality Modality Other Specimen (Source) Anatomical Location Collection Method / Collectio n Time Received Time / Laterality Volume 07/28/2019 Narrative 07/28/2019 8:38 AM EST Procedure: ?Transthoracic Echocardiogram Patient: ?NATALYA Mccollum ? (Age): 1945(74y) Med Rec#: ? [id number] ?Sex: ?M ? Site Loc: ? [facility] ?Ht / Wt: ??172(cm)/81(kg) Pt. Loc: ?Echo Lab ?BSA: ?1.94 Study Date: ?? 07/28/2019 ?Pt. Type: Outpatient Tape: ? Referring: MARY ELLEN Reading: Ifeanyi Truong ([id number]) Anesthesiology Tech: Fadumo Flanagan RDCS, REGINA Diagnosis: *Chronic systolic [...] E-wave Vmax ?1 ?m/sec ? MV deceleration rtfh081.5 ? msec ? MV A-wave Vmax ?1 [...] ? Mid-Inferior ?Hypokinetic ? Mid-Inferoseptal ?Normal ? [place]-Septal ? Normal ? [place]-Anterior ? Hypokinetic ? [place]-Lateral ?Normal ? [place]-Inferior ? Akinetic ? [place]-Tip ?Hypokinetic ? This report has been electronically sign ed by: _ Ifeanyi Truong M.D. ? 07/28/2019 0 8:38:01 Images reviewed and interpretation [facility] Procedure Note Ifeanyi Truong MD - 07/28/2019Formatt ing of this note might be different from the original. Procedure: Transthoracic Echocardiogram Patient: NATALYA MCBRIDE(Age): [birth year]74y) Med Rec#: [id number] Sex: M Site Loc: [facility] Ht / Wt: 172(cm)/81(kg) Pt. Loc: Echo Lab BSA: 1.94 Study Date: 07/28/2019 Pt. Type: Outpati ent Tape: Referring: MARY ELLEN Reading: Ifeanyi Truong ([id number]) Anesthesiology Tech: Fadumo Flanagan [facility], [place] Diagnosis: *Chronic systolic (congestive) heart [...] MV E-wave Vmax 1 m/sec MV deceleration itbr494.5 msec MV A-wave Vmax 1 m/sec MV [...] Normal Mid-Posterolateral Normal Mid-Inferior Hypokinetic Mid-Inferoseptal Normal [place]-Septal Normal [place]-Anterior Hypokinetic [place]-Lateral Normal [place]-Inferior Akinetic [place]-Tip Hypokinetic This report has been electronically sign ed by: _ Ifeanyi Truong M.D. 07/28/2019 08:38:0 1 Images reviewed and interpretation verif ied [facility] Cardiac Ultrasound Laboratory Danette Maxwell APRN ECHO ORDERABLES (ABNORMAL) Basic Metabolic Panel (non-fasting) (01/16/2019 7:49 AM EDT) P athologist Signature Glucose Lvl 105 65 - 199 [facility] mg/dL [facility] [...] of body mass or the acutely ill. http://[email or web address]/SpineFrontiernkf eGFR 79 >=60 mL/min/1.73 m?? [facility] Comment: The eGFR was calculated using the CKD-EP I equation. As with all creatinine based estimates of kidney function, eGFR values calculated with the CKD-EPI equation are not accurate in patients wi th acute kidney failure, extremes of body mass or the acutely ill. http://[employer]/[facility]ATERnkf Specimen Anatomical Collection Method Collection Time Receive d Time (Source) Location / / Volume Laterality Blood specimen 01/16/2019 7:49 AM 019 7:55 (specimen) EDT AM EDT Resulting Agency Comment Spec In Lab Danette Maxwell APRN CHEMISTRY ORDERABLES Performing Organization Address City/State/ZIP [place] [address] (ABNORMAL) pro-Brain Natriuretic Peptide (01/16/2019 7:49 AM EDT) P athologist Signature ProBNP 780 (H) <=125 pg/mL [facility] Specimen Anatomical Collection Method Collection Time Receive d Time (Source) Location / / Volume Laterality Blood specimen 01/16/2019 7:49 AM 019 7:55 (specimen) EDT AM EDT Resulting Agency Comment Spec In Lab Danette Maxwell PLASTIC MOULD MAKER CHEMISTRY ORDERABLES Performing Organization Address City/State/ZIP [place] [address] documented in this encounter Visit Diagnoses Diagnosis Chronic systolic heart failure Cardiomyopathy, ischemic Other specified forms of chronic ischemi c heart disease Hx of thyroid cancer Personal history of malignant neoplasm o f thyroid ASHD (arteriosclerotic heart disease) Coronary atherosclerosis of unspecified type of vessel, [place] or graft MARIA VICTORIA (obstructive sleep apnea) on CPAP Obstructive sleep apnea (adult) (pediatr ic) Chronic systolic heart failure documented in this encounter Care Teams Tanker Driver Relationship Specialty Start Date End Date Lovely Vicente MD PCP - General 04/16/[address] [place] [address] documented as of this encounter
--- OUTSIDE RECORDS SUMMARY | 2022-04-08 08:48 | XMS_ITS | Encounter Summary ---
:1945 Author Organization [facility] [place] [address] Care Team Providers Name Role Phone Lovely Vicente MD Primary Care Provider Encounter Details Date Type Department Care Team Description 10/05/2017 Telephone Cardiology at [facility] Tamiko Sin MD [facility] [place] [address] CARDIOLOGY DEPT [phone] [place], [place] [address] (Wo rk) Social History Tobacco [...] [facility] [place] [address] [place] [address] (Wo rk) 05/28/2022 Laboratory Appointment Lab 05/28/2022 Office Visit Cardiology Zulma Dolan [place] [facility] [address] Liz Poole PA [facility] [place] [address] 06/10/2022 Office Visit Dermatology Laura Scherer MD [facility] ER [address] [place], [place] [address] (Wo rk) documented as of this encounter Visit Diagnoses Not on filedocumented in this encounter Care Teams Silvering Applicator Relationship Specialty Start Date End Date Lovely Vicente MD PCP - General 04/16/[address] [place] [address] documented as of this encounter
--- OUTSIDE RECORDS SUMMARY | 2022-04-08 08:48 | XMS_ITS | Encounter Summary ---
:1945 [place] [address] Care Team Providers Name Role Phone Lovely Vicente MD Primary Care Provider Encounter Details Date Type Department Care Team Description 07/12/2019 Office Visit Dermatology at [facility], Rigoberto Yarbrough (actinic keratosis); MD SHAY Quick III (seborrheic keratosis); [address] [facility] Multiple benign nevi; [place] [address] History of melanoma [phone] [facility] [place], [place] [address] Social History Tobacco Use Types [...] Dolan MD [facility] Dr [place], [place] [address] (Wo rk) 05/28/2022 Laboratory Appointment Lab 05/28/2022 Office Visit Cardiology Zulma Dolan [place] [address] Liz Poole PA [facility] [place] [address] 06/10/2022 Office Visit Dermatology Laura Scherer MD [facility] [address], [place] [address] (Wo rk) documented as of this encounter Visit Diagnoses Diagnosis AK (actinic keratosis) Actinic keratosis SK (seborrheic keratosis) Other seborrheic keratosis Multiple benign nevi Benign neoplasm of skin, site unspecifie d History of melanoma Personal history of malignant melanoma o f skin documented in this encounter Care Teams Senior Producer Relationship Specialty Start Date End Date Lovely Vicente MD PCP - General 04/16/15 [facility] [address] [place] [address] documented as of this encounter
--- OUTSIDE RECORDS SUMMARY | 2022-04-08 08:48 | XMS_ITS | Encounter Summary ---
:1945 Author Organization [place] [address] Care Team Providers Name Role Phone Lovely Vicente MD Primary Care Provider Reason for Visit Reason Comments Skin Check Encounter Details Date Type Department Care Team Description 07/06/2018 Office Visit Dermatology at [facility], Rigoberto Yarbrough (actinic keratosis); MD SHAY Quick III (seborrheic keratosis); [address] [facility] History of melanoma; [place] [address] Skin exam for malignant neoplasm [phone] [facility]-[place] [place], [place] [address] Social History Tobacco Use Types [...] Zulma Dolan MD [facility] [address] [place], [place] [address] (Wo rk) 05/28/2022 Laboratory Appointment Lab 05/28/2022 Office Visit Cardiology Zulma Dolan MD [facility] [place] [address] Liz Poole PA [facility] [place] [address] 06/10/2022 Office Visit Dermatology Laura Scherer MD [facility] [address] [place], [place] [address] (Wo rk) documented as of this encounter Visit Diagnoses Diagnosis [place] (actinic keratosis) Actinic keratosis SK (seborrheic keratosis) Other seborrheic keratosis History of melanoma Personal history of malignant melanoma o f skin Skin exam for malignant neoplasm Screening for malignant neoplasm of the skin documented in this encounter Care Teams Special Population Paraprofessional Relationship Specialty Start Date End Date Lovely Vicente MD PCP - General 04/16/[address] [place] [address] documented as of this encounter
--- OUTSIDE RECORDS SUMMARY | 2022-04-08 08:48 | XMS_ITS | Encounter Summary ---
:1945 Author Organization [facility] [place] [address] Care Team Providers Name Role Phone Lovely Vicente MD Primary Care Provider Encounter Details Date Type Department Care Team Description 09/16/2017 [place] [address] Social History Tobacco Use Types Packs/Day [...] Cardiology Zulma Dolan MD [facility] [place], [place] [address] (Wo rk) 05/28/2022 Laboratory Appointment Lab 05/28/2022 Office Visit Cardiology Zulma Dolan MD [facility] [place] [address] Liz Poole PA [facility] [place] [address] 06/10/2022 Office Visit Dermatology Laura Scherer MD [facility] [address]DERMAT OLOGY [place], [place] [address] (Wo rk) documented as of this encounter Procedures Procedure Name Priority Date/Time Associated Diagnosis Comme [facility] SURGICAL PATHOLOGY Routine 09/16/2017 7:28 AM Res ults for this REPORT EST procedure are i n the results section. documented in this encounter Results Surgical Pathology Report (09/16/2017 7:28 AM EST) Component Value Ref Test Analysis Performed At [facility] Method Time Signature Surgical [id number] ? Location: [facility] Pathology [place] Report The signing pathologist has (i) examined [...] Henrique Flower Verified: ??09/24/2017 ?Pathologist Performed at: ??-[facility] Dept. of Pathology, [place], [place] CLINICAL INFORMATION Specimen Submitted: A - [...] City/State/[place] [address] documented in this encounter Visit Diagnoses Not on filedocumented in this encounter Care Teams Automotive Glass Installer Relationship Specialty Start Date End Date Lovely Vicente MD PCP - General 04/16/[address] [place] [address] documented as of this encounter
--- OUTSIDE RECORDS SUMMARY | 2022-04-08 08:48 | XMS_ITS | Encounter Summary ---
:1945 Author Organization [facility] [place] [address] Care Team Providers Name Role Phone Lovely Vicente MD Primary Care Provider Reason for Visit Reason Comments Establish Care Atrial Fibrillation Congestive Heart Failure Cardiomyopathy Encounter Details Date Type Department Care Team Description 09/06/2019 [facility] Ischemic [facility] Osvaldo STRANGE [address] [place], [place] CARDIOLOGY DEPT. [address] [place] [address] [phone] Social History Tobacco Use Types Packs/Day Years [...] today For any questions, call my office: [phone] To access your health care information, go to the web at: [email or web address] (you will need to register) For educational materials: [email or web address] Karel TRAMMELL.[facility], Clinical Cardiac Electrophysiology, [facility], [facility] A Healthy Heart: After Your Visit [...] least 2 servings of fish a week. Carter, mackerel, mcfadden, sardines, and chunk light tuna [...] irregular heartbeat. After you call 911, the sulfuric acid plant operator may tell you to chew 1 [...] more? Visit our health information library at [email or web address]. You can also view health information on [employer], your personal patient account. Log in or sign up today. Enter F075 in the search box to learn more about A Healthy Heart: After Your Visit. ?? [id number] [employer] documented in this encounter Progress Notes Karel Mcelroy MD - 09/06/2019 2:20 PM EST Images from the original note were not included. Section of Cardiology/Cardiac Electrophysiology [facility] Clinical Cardiac Electrophysiology Consult Patient ID Don Fatima 1945 [id number] Don Fatima is referred to the EP clinic by Danette Maxwell APRN PhD Chief Complaint Dyspnea on exertion Ischemic cardiomyopathy History This is a 74 y.o. male following up/being seen in clinic for evaluation for ongoing anticoagulation. He has a Mvymx5Oxkw score of ~ 6-7. 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, is able to snow blow, can walk [...] on phone: None Gets together: None Attends christian service: None Active member of club or [...] reviewed the ECG: sinus rhythm, 72 bpm, SD 140 ms, QRS 100 ms, QT 400 [...] EP clinic KAREL MCERLOY MD Cardiac Electrophysiology [facility] T: [phone] F: [phone] 35 minutes of this 40 minute encounter were spent in counselling, as described above Cc: MD Danette Cr APRN PhD Janett Espino DPM documented in this encounter Plan of Treatment Upcoming Encounters Date Type Specialty Care Team Description 05/28/2022 Appointment Cardiology Zulma Dolan MD [facility] [place], [place] [address] (Wo rk) 05/28/2022 Laboratory Appointment Lab 05/28/2022 Office Visit Cardiology Zulma Dolan MD [facility] [place] [address] Liz Poole PA [facility] [place] [address] 06/10/2022 Office Visit Dermatology Laura Scherer MD [facility] [address]DERMAT OGY [place], [place] [address] (Wo rk) documented as [...] 446 ms MUSE SYSTEM (Bezet) Calculated P [place] 37 degrees MUSE SYSTEM Calculated R [place] -23 degrees MUSE SYSTEM Calculated T [place] 116 degrees MUSE SYSTEM INTERPRETATION Normal sinus rhythm MUSE SYSTEM Inferior infarct (cited on or before 25-JAN-2013) ST & T wave abnormality, consider anterolateral ischemia Abnormal ECG When compared with ECG of 19-AUG-2017 10:23, No significant change was found Confirmed by MD Cande, Michael ([id number]) on 09/08/2019 10:22:4 7 AM Specimen Anatomical [...] in this encounter Care Teams Manufacturing Engineer Chief Relationship Specialty Start Date End Date Lovely Vicente MD PCP - General 04/16/[address] [place] [address] documented as of this encounter
--- OUTSIDE RECORDS SUMMARY | 2022-04-08 08:48 | XMS_ITS | Encounter Summary ---
:1945 Author Organization [facility] [place] [address] Care Team Providers Name Role Phone Lovely Vicente MD Primary Care Provider Reason for Visit Reason Onset Date Comments Follow-up 07/13/2018 amiodarone discontin ued Encounter Details Date Type Department Care Team Description 07/13/2018 Telephone Cardiology at [facility] Martha Comer, Follow-up (amiodarone [facility] RN discontin ued) [place] [address] Social History Tobacco Use Types Packs/Day [...] RN - 07/13/2018 8:57 AM EST Per POST SPLITTER Hans call placed to the home number for the pt. confirmed that the pt is still taking the amiodarone. Pt is to stop the amiodarone. Pt taking it for post op a-fib, therapy was supposed to be for 30 days. Message given to his . She will give him the message and will have him call with any questions. Call placed to the [facility] pharmacy in [place] to discontinue it there as well. Med list updated. documented in this encounter Plan of Treatment Upcoming Encounters Date Type Specialty Care Team Description 05/28/2022 Appointment Cardiology Zulma Dolan MD [facility] [address] [place], [place] [address] (Wo rk) 05/28/2022 Laboratory Appointment Lab 05/28/2022 Office Visit Cardiology Zulma Dolan MD [facility] [place] [address] Liz Poole PA [facility] [place] [address] 06/10/2022 Office Visit Dermatology Laura Scherer MD [facility] DR [address]DERMAT [place], [place] [address] (Wo rk) documented as of this encounter Visit Diagnoses Not on filedocumented in this encounter Care Teams Wire Fence Builder Relationship Specialty Start Date End Date Lovely Vicente MD PCP - General 04/16/[address] [place] [address] documented as of this encounter
--- OUTSIDE RECORDS SUMMARY | 2022-04-08 08:48 | XMS_ITS | Encounter Summary ---
:1945 Author Organization [facility] [place] [address] Care Team Providers Name Role Phone Lovely Vicente MD Primary Care Provider Encounter Details Date Type Department Care Team Description 10/05/2017 Unscheduled Cardiology at [facility] Sin PATIENT NOT SEEN Encounter [facility] Tamiko Martinez MD [facility] [address] CARDIOLOGY DEPT [phone] [place] [address] Social History Tobacco Use Types Packs/Day Years [...] Dolan MD [facility] [address] [place], [place] [address] (Wo rk) 05/28/2022 Laboratory Appointment Lab 05/28/2022 Office Visit Cardiology Zulma Dolan MD [facility] [place] [address] Liz Poole PA [facility] [place] [address] 06/10/2022 Office Visit Dermatology Laura Scherer MD [facility] [address]DERMAT [place], [place] [address] (Wo rk) documented as of this encounter Visit Diagnoses Diagnosis DH PATIENT NOT SEEN documented in this encounter Care Teams Air Brake Operator Relationship Specialty Start Date End Date Lovely Vicente MD PCP - General 04/16/[address] [place] [address] documented as of this encounter
--- OUTSIDE RECORDS SUMMARY | 2022-04-08 08:48 | XMS_ITS | Encounter Summary ---
:1945 Author Organization [facility] [place] [address] Care Team Providers Name Role Phone Lovely Vicente MD Primary Care Provider Reason for Visit Reason Comments Follow-up Skin Check Encounter Details Date Type Department Care Team Description 01/06/2018 Office Visit Dermatology at [facility]; Abdelrahman HOOPER MD History of melanoma; [address] [facility] [place] [address] [facility][1]-DERMATOLGY [place], [place] [address] Social History Tobacco Use Types [...] encounter. Rigoberto Garcia MD Section of Dermatology [facility] documented in this encounter Plan of Treatment Upcoming Encounters Date Type Specialty Care Team Description 05/28/2022 Appointment Cardiology Zulma Dolan MD [facility] [address] [place], [place] [address] (Wo rk) 05/28/2022 Laboratory Appointment Lab 05/28/2022 Office Visit Cardiology Zulma Dolan MD [facility] [place] [address] Liz Poole PA [facility] [place] [address] 06/10/2022 Office Visit Dermatology Laura Scherer MD [facility] [address]MAT [place], [place] [address] (Wo rk) documented as of this encounter Visit Diagnoses Diagnosis Multiple nevi Benign neoplasm of skin, site unspecifie d History of melanoma Personal history of malignant melanoma o f skin Seborrheic keratosis Other seborrheic keratosis documented in this encounter Care Teams Booster Assembler Relationship Specialty Start Date End Date Lovely Vicente MD PCP - General 04/16/[address] [place] [address] documented as of this encounter
--- OUTSIDE RECORDS SUMMARY | 2022-04-08 08:48 | XMS_ITS | Encounter Summary ---
:1945 Author Organization [facility] [place] [address] Care Team Providers Name Role Phone Lovely Vicente MD Primary Care Provider Encounter Details Date Type Department Care Team Description 02/19/2020 Telephone Dermatology at [facility] Ariana Wilder LPN [address] [place] [address] Social History Tobacco Use Types Packs/Day [...] Cardiology Zulma Dolan MD [facility] [place], [place] [address] (Wo rk) 05/28/2022 Laboratory Appointment Lab 05/28/2022 Office Visit Cardiology Zulma Dolan MD [facility] [place] [address] Liz Poole PA [facility] [place] [address] 06/10/2022 Office Visit Dermatology Laura Scherer MD [facility] [address] [place], [place] [address] (Wo rk) documented as of this encounter Visit Diagnoses Not on filedocumented in this encounter Care Teams District Ranger Relationship Specialty Start Date End Date Lovely Vicente MD PCP - General 04/16/[address] [place] [address] documented as of this encounter
--- OUTSIDE RECORDS SUMMARY | 2022-04-08 08:48 | XMS_ITS | Encounter Summary ---
:1945 Author Organization [facility] [place] [address] Care Team Providers Name Role Phone Lovely Vicente MD Primary Care Provider Reason for Referral Diagnostic Test (Routine) - Specialty Diagnoses / Procedures Referred By Contact Refer red To Contact Cardiology Diagnoses Chronic systolic heart failure Danette Maxwell APRN [facility] Non-Inv Card Lab Procedures Echocardiogram Transthoracic(Leb) [facility] [address] [phone] [place] [address] Referral ID Status Reason Start Date Expiration Visits Visits Date Requested Authorized [id number] Specialty 08/15/2018 08/15/2018 1 1 Service Requested Reason for Visit Diagnostic Test (Routine) - Specialty Diagnoses / Procedures Referred By Contact Nawaf owen To Contact Cardiology Diagnoses Chronic systolic heart failure Danette Maxwell APRN [facility] Non-Inv Card Lab Procedures Echocardiogram Transthoracic(Leb) [facility] [place] [address] [place] [address] Referral ID Status Reason Start Date Expiration Visits Visits Date Requested Authorized [id number] Specialty 08/15/2018 08/15/2018 1 1 Service Requested Encounter Details Date Type Department Care Team Description 08/15/2018 Hospital Encounter Non-Invasive Danette Maxwell Chron ic systolic Cardiology Lab Barbara Gomes APRN heart failure [facility] [place] [address] [place] [phone] [address] (Work) [phone] Social History Tobacco Use Types Packs/Day Years [...] Zulma Dolan MD [facility] [place], [place] [address] (Wo rk) 05/28/2022 Laboratory Appointment Lab 05/28/2022 Office Visit Cardiology Zulma Dolan MD [facility] [place] [address] Liz Poole PA [facility] [place] [address] 06/10/2022 Office Visit Dermatology Laura Scherer MD [facility] DR [address] OLOG[address] [place], [place] [address] (Wo rk) documented as [...] Mccollum ? (Age): 1945(73y) Med Rec#: ? [id number] ?Sex: ?M ? Site Loc: ? [facility] ?Ht / Wt: ??172(cm)/81(kg) Pt. Loc: ?Echo Lab ?BSA: ?1.94 Study Date: ?? 08/15/2018 ?Pt. Type: Outpatient Tape: ? Referring: MARY ELLEN Reading: Scott Ortega ([id number]) Plumbing Contractor: Laura Sargent Diagnosis: *Chronic systolic (congestive) heart [...] E-wave Vmax ?1.2 ?m/sec ? MV deceleration [id number] ? msec ? MV A-wave Vmax ?0.7 [...] ? Mid-Inferior ?Hypokinetic ? Mid-Inferoseptal ?Hypokinetic ? [place]-Septal ? Akinetic ? [place]-Anterior ? Hypokinetic ? [place]-Lateral ?Akinetic ? [place]-Inferior ? Hypokinetic ? [place]-Tip ?Akinetic ? This report has been electronically sign ed by: _ Scott Ortega M.D. ? 08/15/2018 08:17:26 Images reviewed and interpretation ver ied [facility] Cardiac Ultrasound Laboratory Procedure Note Scott Ortega MD - 08/15/2018Format ting of this note might be different from the original. Procedure: Transthoracic Echocardiogram Patient: NATALYA MCBRIDE(Age): [birth year]73y) Med Rec#: [id number] Sex: M Site Loc: [facility] Ht / Wt: 172(cm)/81(kg) Pt. Loc: Echo Lab BSA: 1.94 Study Date: 08/15/2018 Pt. Type: Outpati ent Tape: Referring: MARY ELLEN Reading: Scott Ortega ([id number]) Plumbing Contractor: Laura Sargent Diagnosis: *Chronic systolic (congestive) heart [...] MV E-wave Vmax 1.2 m/sec MV deceleration ftmb743.4 msec MV A-wave Vmax 0.7 m/sec MV [...] Akinetic Mid-Posterolateral Akinetic Mid-Inferior Hypokinetic Mid-Inferoseptal Hypokinetic [place]-Septal Akinetic [place]-Anterior Hypokinetic [place]-Lateral Akinetic [place]-Inferior Hypokinetic [place]-Tip Akinetic This report has been electronically sign ed by: _ Scott Ortega M.D. 08/15/2018 08:17: 26 Images reviewed and interpretation verif ied [facility] Cardiac Ultrasound Laboratory Danette A Hans CANDY COOKER HELPER ECHO ORDERABLES documented in this encounter Visit [...] Routine documented in this encounter Care Teams Departmental Buyer Relationship Specialty Start Date End Date Lovely Vicente MD PCP - General 04/16/[address] [place] [address] documented as of this encounter
--- OUTSIDE RECORDS SUMMARY | 2022-04-08 08:48 | XMS_ITS | Encounter Summary ---
:1945 Author Organization [facility] [place] [address] Care Team Providers Name Role Phone Lovely Vicente MD Primary Care Provider Encounter Details Date Type Department Care Team Description 04/18/2018 Laboratory Appointment Lab 3L [facility] [place] [phone] Social History Tobacco Use Types Packs/Day Years [...] [facility] [place], [place] [address] (Wo rk) 05/28/2022 Laboratory Appointment Lab 05/28/2022 Office Visit Cardiology Zulma Dolan MD [facility] [place] [address] Liz Poole PA [facility] [place] [address] 06/10/2022 Office Visit Dermatology Laura Scherer MD [facility] ER [address] [place], [place] [address] (Wo rk) documented as of [...] Signature Total Protein 7.6 6.1 - 8.0 [facility] RYAN gm/dL [facility]OR[facility] Albumin 4.0 3.2 - 5.2 [facility] RYAN gm/dL [facility] AST 36 0 - 39 [facility] R[facility] unit/L [facility] ALT 27 0 - 55 [place] R[facility]AN unit/L [facility] Alk Phos 96 40 - 120 [facility] R[facility] unit/L [facility] Total 0.7 0.2 - 1.3 [place] [email or web address] Bilirubin mg/dL [facility] Bili, Direct 0.1 0.0 - 0.3 [facility] RYAN mg/dL [facility] Specimen Anatomical Collection Method Collection Time Receive d Time (Source) Location / / Volume Laterality Blood specimen Venous Draw / 04/18/2018 9:19 AM 2017 9:44 (specimen) Unknown EDT AM EDT Resulting Agency Comment Spec In Lab Danette Maxwell APRN CHEMISTRY ORDERABLES Performing Organization Address City/State/[place] [address] TSH (04/18/2018 9:19 AM EDT) athologist Signature TSH 1.77 0.27 - 4.20 [facility] mlU/ML [facility] Specimen Anatomical Collection Method Collection Time Receive d Time (Source) Location / / Volume Laterality Blood specimen Venous Draw / 04/18/2018 9:19 AM 2017 9:44 (specimen) Unknown EDT AM EDT Resulting Agency Comment Spec In Lab Danette Maxwell APRN CHEMISTRY ORDERABLES Performing Organization Address City/State/[place] [address] (ABNORMAL) Basic Metabolic Panel (non-fasting) (04/18/2018 9:19 AM EDT) athologist Signature Glucose Lvl 167 65 - 199 [facility] mg/dL [facility] Comment: Diabetes: >=200 mg/dL plus symp toms BUN 18 10 - 20 mg/dL [facility] Creatinine 1.19 0.80 - 1.50 mg/dL [facility] Sodium 147 (H) 135 [...] of body mass or the acutely ill. http://ITegris/DHMCnkf eGFR 70 >=60 mL/min/1.73 m?? [facility] Comment: The eGFR was calculated using the CKD-EP I equation. As with all creatinine based estimates of kidney function, eGFR values calculated with the CKD-EPI equation are not accurate in patients wi th acute kidney failure, extremes of body mass or the acutely ill. http://ITegris/DHnkf Specimen Anatomical Collection Method Collection Time Receive d Time (Source) Location / / Volume Laterality Blood specimen 04/18/2018 9:19 AM 018 9:34 (specimen) EDT AM EDT Resulting Agency Comment Spec In Lab Danette Maxwell APRN CHEMISTRY ORDERABLES Performing Organization Address City/[facility]/[place] [address] (ABNORMAL) pro-Brain Natriuretic Peptide (04/18/2018 9:19 AM EDT) P athologist Signature ProBNP 2,199 (H) <=125 [facility] pg[facility] Specimen Anatomical Collection Method Collection Time Receive d Time (Source) Location / / Volume Laterality Blood specimen 04/18/2018 9:19 AM 018 9:34 (specimen) EDT AM EDT Resulting Agency Comment Spec In Lab Danette Maxwell APRN CHEMISTRY ORDERABLES Performing Organization Address City/[facility]/ZIP [place] [address] documented in this encounter Visit Diagnoses Diagnosis Chronic systolic heart failure documented in this encounter Care Teams Kindergarten Classroom Teacher Relationship Specialty Start Date End Date Lovely Vicente MD PCP - General 04/16/[address] [place] [address] documented as of this encounter
--- OUTSIDE RECORDS SUMMARY | 2022-04-08 08:48 | XMS_ITS | Encounter Summary ---
:1945 Author Organization [facility] Address [facility] [place] [address] Care Team Providers Name Role Phone Lovely Vicente MD Primary Care Provider Reason for Referral Diagnostic Test (Routine) - Specialty Diagnoses / Procedures Referred By Contact Refer red To Contact Cardiology Diagnoses Chronic systolic heart failure Danette Maxwell APRN [facility] Non-Inv Card Lab Procedures Echocardiogram Transthoracic(Leb) [facility] [place] [address] [place] [address] Referral ID Status Reason Start Date Expiration Visits Visits Date Requested Authorized [id number] Specialty 08/15/2018 08/15/2018 1 1 Service Requested Encounter Details Date Type Department Care Team Description 04/18/2018 Office Visit Cardiology at [facility] Danette Maxwell Chronic systolic heart failu re; [facility] STACIE Gomes On amiodarone therapy; [facility] Ischemic cardiomyopathy; [place], [place] DR ONOFRE (arteriosclerotic cardiovascular d isease) [phone] CARDIOLOGY [phone] [place], [place] [address] Social History Tobacco Use Types Packs/Day Years [...] in this encounter Progress Notes Danette Maxwell, TENTER FEEDER - 04/18/2018 10:40 AM EDT ID and [...] right popliteal-pedal bypass at [facility] ? Plan: 1. A review of [...] Zulma Dolan MD [facility] [address] [place], [place] [address] (Wo rk) 05/28/2022 Laboratory Appointment Lab 05/28/2022 Office Visit Cardiology Zulma Dolan [place] [facility] [place] [address] Liz Poole PA [facility] [place] [address] 06/10/2022 Office Visit Dermatology Laura Scherer MD [facility] [address] [place], [place] [address] (Wo rk) documented as of this encounter Results ECHOCARDIOGRAM COMPLETE W CONTRAST (08/15/2018 7:55 AM EST) P athologist Signature EF 35 HEARTLAB SYSTEM Anatomical Region Laterality Modality Other Specimen (Source) Anatomical Location Collection Method / Collectio n Time Received Time / Laterality Volume 08/15/2018 Narrative 08/15/2018 8:18 AM EST Procedure: ?Transthoracic Echocardiogram Patient: ?NATALYA Mccollum ? (Age): 1945(73y) Med Rec#: ? [id number] ?Sex: ?M ? Site Loc: ? [facility] ?Ht / Wt: ??172(cm)/81(kg) Pt. Loc: ?Echo Lab ?BSA: ?1.94 Study Date: ?? 08/15/2018 ?Pt. Type: Outpatient Tape: ? Referring: MARY ELLEN Reading: Scott Ortega ([id number]) Mail Carrier: Laura Sargent Diagnosis: *Chronic systolic (congestive) heart [...] E-wave Vmax ?1.2 ?m/sec ? MV deceleration idhh929.4 ? msec ? MV A-wave Vmax ?0.7 [...] ? Mid-Inferior ?Hypokinetic ? Mid-Inferoseptal ?Hypokinetic ? Deaver-Septal ? Akinetic ? Deaver-Anterior ? Hypokinetic ? Deaver-Lateral ?Akinetic ? Deaver-Inferior ? Hypokinetic ? Deaver-Tip ?Akinetic ? This report has been electronically sign ed by: _ Scott Ortega M.D. ? 08/15/2018 08:17:26 Images reviewed and interpretation verif ied [facility] Cardiac Ultrasound Laboratory Procedure Note Scott Ortega MD - 08/15/2018Format ting of this note might be different from the original. Procedure: Transthoracic Echocardiogram Patient: NATALYA MCBRIDE(Age): [birth year]73y) Med Rec#: [id number] Sex: M Site Loc: [facility] Ht / Wt: 172(cm)/81(kg) Pt. Loc: Echo Lab BSA: 1.94 Study Date: 08/15/2018 Pt. Type: Outpati ent Tape: Referring: MARY ELLEN Reading: Scott Ortega ([id number]) Mail Carrier: Laura Sargent Diagnosis: *Chronic systolic (congestive) heart [...] MV E-wave Vmax 1.2 m/sec MV deceleration orim987.4 msec MV A-wave Vmax 0.7 m/sec MV [...] Akinetic Mid-Posterolateral Akinetic Mid-Inferior Hypokinetic Mid-Inferoseptal Hypokinetic Deaver-Septal Akinetic Deaver-Anterior Hypokinetic Deaver-Lateral Akinetic Deaver-Inferior Hypokinetic Deaver-Tip Akinetic This report has been electronically sign ed by: _ Scott Ortega M.D. 08/15/2018 08:17: 26 Images reviewed and interpretation verif ied [facility] Cardiac Ultrasound Laboratory Danette Maxwell APRN ECHO ORDERABLES (ABNORMAL) Basic Metabolic Panel (non-fasting) (04/18/2018 9:19 AM EDT) P athologist Signature Glucose Lvl 167 65 - 199 [facility] mg/dL [facility] Comment: Diabetes: >=200 [...] Gap 23 (H) 5 - 15 mmol/L [facility] [...] of body mass or the acutely ill. http://VALOREM/[facility] AD[facility] eGFR 70 >=60 mL/min/1.73 m?? [facility] Comment: The eGFR was calculated using the CKD-EP I equation. As with all creatinine based estimates of kidney function, eGFR values calculated with the CKD-EPI equation are not accurate in patients wi th acute kidney failure, extremes of body mass or the acutely ill. http://VALOREM/[facility] Specimen Anatomical Collection Method Collection Time Receive d Time (Source) Location / / Volume Laterality Blood specimen 04/18/2018 9:19 AM 018 9:34 (specimen) EDT AM EDT Resulting Agency Comment Spec In Lab Danette Maxwell APRN CHEMISTRY ORDERABLES Performing Organization Address City/State/[place] [address] (ABNORMAL) pro-Brain Natriuretic Peptide (04/18/2018 9:19 AM EDT) P athologist Signature ProBNP 2,199 (H) <=125 [facility] pg/mL [facility] Specimen Anatomical Collection Method Collection Time Receive d Time (Source) Location / / Volume Laterality Blood specimen 04/18/2018 9:19 AM 018 9:34 (specimen) EDT AM EDT Resulting Agency Comment Spec In Lab Danette Maxwell APRN CHEMISTRY ORDERABLES Performing Organization Address City/State/[place] [address] documented in this encounter Visit Diagnoses Diagnosis Chronic systolic heart failure On amiodarone therapy Ischemic cardiomyopathy Other specified forms of chronic ischemi c heart disease ASCVD (arteriosclerotic cardiovascular d isease) Unspecified cardiovascular disease Chronic systolic heart failure documented in this encounter Care Teams Drywall Stripper Relationship Specialty Start Date End Date Lovely Vicente MD PCP - General 04/16/[address] [place] [address] documented as of this encounter
--- OUTSIDE RECORDS SUMMARY | 2022-04-08 08:48 | XMS_ITS | Encounter Summary ---
:1945 Author Organization [facility] [place] [address] Care Team Providers Name Role Phone Lovely Vicente MD Primary Care Provider Encounter Details Date Type Department Care Team Description 11/29/2017 Laboratory Lab 3L Barbara Chronic systoli c congestive heart failure; Appointment [facility] ASCVD (ar teriosclerotic cardiovascular disease); Hospital Cardiomyopathy, [place] [address] Social History Tobacco Use Types [...] MD [facility] er [place], [place] [address] (Wo rk) 05/28/2022 Laboratory Appointment Lab 05/28/2022 Office Visit Cardiology Zulma Dolan MD [facility] [place] [address] Liz Poole PA [facility] [place] [address] 06/10/2022 Office Visit Dermatology Laura Scherer MD [facility] ER [address] [place], [place] [address] (Wo rk) documented as of [...] [facility] LABORATORY INR 2.[address] [facility] [...] Address City/State/Z[place] [address] (ABNORMAL) Basic Metabolic Panel (non-fasting) (11/29/2017 8:22 AM EDT) P athologist Signature Glucose Lvl 217 (H) 65 - 199 [facility] mg/dL [facility] Comment: [...] [facility] Estimated GFR >60 >=60 [facility] Comment: The reported eGFR should be multiplied b y 1.2 for patients. The MDRD is not an appropriate measure o f renal function for patients with body mass extremes or in patients with acute kidney failure. http://Vumanity Media.[employer] e[employer]/DHnkdep http://femeninas/DHMCnkf Specimen Anatomical Collection Method Collection Time Receive d Time (Source) Location / / Volume Laterality Blood specimen 11/29/2017 8:22 AM 018 8:29 (specimen) EDT AM EDT Resulting Agency Comment Spec In Lab Danette Maxwell APRN CHEMISTRY ORDERABLES Performing Organization Address City/State/[place] [address] (ABNORMAL) pro-Brain Natriuretic Peptide (11/29/2017 8:22 AM EDT) P athologist Signature ProBNP 1,769 (H) <=125 [facility] pg/mL [facility] Specimen Anatomical Collection Method Collection Time Receive d Time (Source) Location / / Volume Laterality Blood specimen 11/29/2017 8:22 AM 018 8:29 (specimen) EDT AM EDT Resulting Agency Comment Spec In Lab Danette Maxwell APRN CHEMISTRY ORDERABLES Performing Organization Address City/State/ZIP Code Phon e Number [address] Lavender Tube HOLD (11/29/2017 8:14 AM EDT) Patholo gist Method Time Signature Lavender Hold Sample in [facility] lab. [facility] Specimen Anatomical Collection Method Collection Time Receive d Time (Source) Location / / Volume Laterality Blood specimen No Charge / 11/29/2017 8:14 AM 018 8:29 (specimen) Unknown EDT AM EDT Lovely Vicente MD HEMATOLOGY ORDERABLES Performing Organization Address City/State/[place] [address] documented in this encounter Visit Diagnoses Diagnosis Chronic systolic congestive heart failur e Chronic systolic heart failure ASCVD (arteriosclerotic cardiovascular d isease) Unspecified cardiovascular disease Cardiomyopathy, ischemic Other specified forms of chronic ischemi c heart disease documented in this encounter Care Teams Software Qa System Specialist Relationship Specialty Start Date End Date Lovely Vicente MD PCP - General 04/16/[address] [place] [address] documented as of this encounter
--- OUTSIDE RECORDS SUMMARY | 2022-04-08 08:48 | XMS_ITS | Encounter Summary ---
:1945 Author Organization [facility] [address] Care Team Providers Name Role Phone Lovely Vicente MD Primary Care Provider Encounter Details Date Type Department Care Team Description 07/28/2019 Laboratory Appointment Lab 3L [facility] [place] [phone] Social History Tobacco Use Types Packs/Day Years [...] Cardiology Zulma Dolan MD [facility] er [address] [place], [place] [address] (Wo rk) 05/28/2022 Laboratory Appointment Lab 05/28/2022 Office Visit Cardiology Zulma Dolan MD [facility] [place] [address] [facility] [place] [address] 06/10/2022 Office Visit Dermatology Laura Scherer MD [facility] [address] [place] [address] (Wo rk) documented as of this encounter [...] City/State/[place] [address] (ABNORMAL) Basic Metabolic Panel (non-fasting) (07/28/2019 8:36 AM EST) athologist Signature Glucose Lvl 153 65 - 199 [facility] mg/dL [facility] Comment: Diabetes: >=200 mg/dL plus [...] of body mass or the acutely ill. http://KOTURA/YouOSnkf eGFR 81 >=60 mL/min/1.73 m?? [facility] Comment: The eGFR was calculated using the CKD-EP I equation. As with all creatinine based estimates of kidney function, eGFR values calculated with the CKD-EPI equation are not accurate in patients wi th acute kidney failure, extremes of body mass or the acutely ill. http://[place]A/[facility] Specimen Anatomical Collection Method Collection Time Receive d Time (Source) Location / / Volume Laterality Blood specimen 07/28/2019 8:36 AM 020 8:46 (specimen) EST AM EST Resulting Agency Comment Spec In Lab Danette Maxwell APRN CHEMISTRY ORDERABLES Performing Organization Address City/State/ZIP [place] [address] documented in this encounter Visit Diagnoses Diagnosis Chronic systolic heart failure documented in this encounter Care Teams Microstrategy Bi Developer Relationship Specialty Start Date End Date Lovely Vicente MD PCP - General 04/16/[address] [place] [address] documented as of this encounter
--- OUTSIDE RECORDS SUMMARY | 2022-04-08 08:48 | XMS_ITS | Encounter Summary ---
:1945 Author Organization [facility] [address] Care Team Providers Name Role Phone Lovely Vicente MD Primary Care Provider Reason for Referral Diagnostic Test (Routine) - Closed Specialty Diagnoses / Procedures Referred By Contact Refer red To Contact Cardiology Diagnoses Chronic systolic heart failure Danette Maxwell APRN [facility] Non-Inv Card Lab Procedures Echocardiogram Transthoracic(Leb) [place] [address] [place] [address] Referral ID Status Reason Start Date Expiration Date Visits V isits Requested Authorized [id number] Closed Specialty 07/17/2019 09/14/2019 1 1 Service Requested Reason for Visit Diagnostic Test (Routine) - Closed Specialty Diagnoses / Procedures Referred By Contact Refer red To Contact Cardiology Diagnoses Chronic systolic heart failure Danette Maxwell APRN [facility] Non-Inv Card Lab Procedures Echocardiogram Transthoracic(Leb) [facility] [place] [address] [place] [address] Referral ID Status Reason Start Date Expiration Date Visits V isits Requested Authorized [id number] Closed Specialty 07/17/2019 09/14/2019 1 1 Service Requested Encounter Details Date Type Department Care Team Description 07/28/2019 Hospital Encounter Non-Invasive Chronic s ystolic heart [place] [address] Social History Tobacco Use Types Packs/Day [...] Cardiology Zulma Dolan MD [facility] [address] [place], [place] [address] (Wo rk) 05/28/2022 Laboratory Appointment Lab 05/28/2022 Office Visit Cardiology Zulma Dolan MD [facility] [place] [address] Liz Poole PA [facility] [place] [address] 06/10/2022 Office Visit Dermatology Laura Scherer MD [facility] [address] [place], [place] [address] (Wo rk) [...] Mccollum ? (Age): 1945(74y) Med Rec#: ? [id number] ?Sex: ?M ? Site Loc: ? [facility] ?Ht / Wt: ??172(cm)/81(kg) Pt. Loc: ?Echo Lab ?BSA: ?1.94 Study Date: ?? 07/28/2019 ?Pt. Type: Outpatient Tape: ? Referring: MARY ELLEN Reading: Ifeanyi Truong ([id number]) Volunteer Services Coordinator: Fadumo Flanagan RDCS, FASE Diagnosis: *Chronic [...] E-wave Vmax ?1 ?m/sec ? MV deceleration ppoh591.5 ? msec ? MV A-wave Vmax ?1 [...] ? Mid-Inferior ?Hypokinetic ? Mid-Inferoseptal ?Normal ? Austin-Septal ? Normal ? Austin-Anterior ? Hypokinetic ? Austin-Lateral ?Normal ? Austin-Inferior ? Akinetic ? Austin-Tip ?Hypokinetic ? This report has been electronically sign ed by: _ Ifeanyi Truong M.D. ? 07/28/2019 0 8:38:01 Images reviewed and interpretation verif ied [facility] Cardiac Ultrasound Laboratory Procedure Note Ifeanyi Truong MD - 07/28/2019Formatt ing of this note might be different from the original. Procedure: Transthoracic Echocardiogram Patient: NATALYA MCBRIDE(Age): [birth year]74y) Med Rec#: [id number] Sex: M Site Loc: [facility] Ht / Wt: 172(cm)/81(kg) Pt. Loc: Echo Lab BSA: 1.94 Study Date: 07/28/2019 Pt. Type: Outpati ent Tape: Referring: MARY ELLEN Reading: Ifeanyi Truong ([id number]) Volunteer Services Coordinator: Fadumo Flanagan [facility], CHILDREN'[facility] AL[facility]USSELL CAMPUSVeda Diagnosis: *Chronic systolic (congestive) heart fa ilure [...] MV E-wave Vmax 1 m/sec MV deceleration opjg944.5 msec MV A-wave Vmax 1 m/sec MV [...] Normal Mid-Posterolateral Normal Mid-Inferior Hypokinetic Mid-Inferoseptal Normal Austin-Septal Normal Austin-Anterior Hypokinetic Austin-Lateral Normal Austin-Inferior Akinetic Austin-Tip Hypokinetic This report has been electronically sign ed by: _ Ifeanyi Truong M.D. 07/28/2019 08:38:0 1 Images reviewed and interpretation elvie hwang [facility] Cardiac Ultrasound Laboratory Danette A [...] Routine documented in this encounter Care Teams Check Writing Machine Operator Relationship Specialty Start Date End Date Lovely Vicente MD PCP - General 04/16/[address] [place] [address] documented as of this encounter
--- OUTSIDE RECORDS SUMMARY | 2022-04-08 08:48 | XMS_ITS | Encounter Summary ---
:1945 Author Organization [facility] [place] [address] Care Team Providers Name Role Phone Lovely Vicente MD Primary Care Provider Encounter Details Date Type Department Care Team Description 08/15/2018 Office Visit Cardiology at [facility] Danette Maxwell Chronic systolic heart failu re; [facility] A, ANCILLARY SERVICES MANAGER Cardiomyopathy, ischemic; [facility] ASCVD (arteriosclerotic card iovascular disease); [place], [place] Essential hypertension; [phone] CARDIOLOGY MARIA VICTORIA on CPAP [phone] [place], [place] [address] Social History Tobacco Use Types [...] in this encounter Progress Notes Danette Maxwell, ANCILLARY SERVICES MANAGER - 08/15/2018 9:00 AM EST Images [...] is always better at therapy Call to [facility] PT Denies lightheadedness or dizziness [...] K+ 4.6 today 6. Post-op atrial fibrillation [id number] (CHF, HTN, DM, vascular disease, thromboembolism) [...] MD [facility] [place] [address] Liz Poole PA [facility] [place] [address] 06/10/2022 Office Visit Dermatology Laura Scherer MD [facility] ER DR [address] [place], [place] [address] (Wo rk) documented as of this encounter Results Lipid Panel (08/15/2018 8:04 AM EST) athologist Signature Chol, Total 75 mg/dL [facility] Comment: Lower Risk: <200 mg/dL Average Risk: 200-239 mg/dL Higher Risk: >ra=502 mg/dL Triglycerides 185 mg/dL [facility] Comment: Average Risk/Lower Risk: <150 mg/dL Borderline High Risk: 150-199 mg/dL High Risk: 200-499 mg/dL Very High Risk: >ms=438 mg/dL HDL 32 mg/dL [facility] Comment: Males: ?? Higher Risk: <40 mg/dL Females: ?? HIgher Risk: <50 mg/dL LDL Cholesterol 6 mg/dL [facility] Comment: Lowest Risk: <100 mg/dL Lower Risk: 100-129 mg/dL Borderline High Risk: 130-159 mg/dL High Risk: 160-189 mg/dL Very High Risk: >jw=519 mg/dL Chol/HDL Ratio 2.[address] [facility] Lipid Interpretation See Note [facility] Comment: Lipid management should be guided by a p atient? s ASCVD risk, goals and preferences. ACC/AHA Guidelines recommend high intens ity statin if clinical ASCVD or LDL greater than or equal to 190 mg/dL. http://Scentbirdurl.com/DDP-KYH-Nrgbopmlc Adults aged 40-75 with LDL 70-189 mg/dL should have their 10 year ASCVD risk estimated with the ACC/AHA ASCVD risk es timator http://tools.acc.org/FRZAM-Wyed-Hfihigzv r/ Statin should be discussed if risk [...] City/State/[place] [address] (ABNORMAL) Basic Metabolic Panel (non-fasting) (08/15/2018 8:04 AM EST) P athologist Signature Glucose Lvl 116 65 - 199 [facility] mg/dL [facility] [...] of body mass or the acutely ill. http://I-Stand/[facility] CITYnkf eGFR 79 >=60 mL/min/1.73 m?? [facility] Comment: The eGFR was calculated using the CKD-EP I equation. As with all creatinine based estimates of kidney function, eGFR values calculated with the CKD-EPI equation are not accurate in patients wi th acute kidney failure, extremes of body mass or the acutely ill. http://I-Stand/[facility] CITYnkf Specimen Anatomical Collection Method Collection Time Receive d Time (Source) Location / / Volume Laterality Blood specimen 08/15/2018 8:04 AM 019 8:20 (specimen) EST AM EST Resulting Agency Comment Spec In Lab Danette Maxwell APRN CHEMISTRY ORDERABLES Performing Organization Address City/State/ZIP Code Phon e Number [address] (ABNORMAL) pro-Brain Natriuretic Peptide (08/15/2018 8:04 AM EST) P athologist Signature ProBNP 1,797 (H) <=125 [facility] pg/mL [facility] Specimen Anatomical Collection Method Collection Time Receive d Time (Source) Location / / Volume Laterality Blood specimen 08/15/2018 8:04 AM 019 8:20 (specimen) EST AM EST Resulting Agency Comment Spec In Lab Danette Maxwell APRN CHEMISTRY ORDERABLES Performing Organization Address City/State/[place] [address] documented in this encounter Visit Diagnoses Diagnosis Chronic systolic heart failure Cardiomyopathy, ischemic Other specified forms of chronic ischemi c heart disease ASCVD (arteriosclerotic cardiovascular d isease) Unspecified cardiovascular disease Essential hypertension Unspecified essential hypertension MARIA VICTORIA on CPAP Obstructive sleep apnea (adult) (pediatr ic) documented in this encounter Care Teams Ben Day Artist Relationship Specialty Start Date End Date Lovely Vicente MD PCP - General 04/16/[address] [place] [address] documented as of this encounter
--- OUTSIDE RECORDS SUMMARY | 2022-04-08 08:48 | XMS_ITS | Encounter Summary ---
:1945 Author Organization [place] [address] Care Team Providers Name Role Phone Lovely Vicente MD Primary Care Provider Encounter Details Date Type Department Care Team Description 10/07/2017 Laboratory Appointment Lab 3L [facility] [place] [phone] Social History Tobacco Use Types Packs/Day Years [...] [facility] [place], [place] [address] (Wo rk) 05/28/2022 Laboratory Appointment Lab 05/28/2022 Office Visit Cardiology Zulma oDlan MD [facility] [place] [address] Liz Poole PA [facility] [place] [address] 06/10/2022 Office Visit Dermatology Laura Scherer MD [facility] ER DR [address] ENIDReal [facility] [place] Amy (Wo rk) documented as of [...] Lvl 99 65 - 199 [facility] mg/dL [facility] Comment: [...] or in patients with acute kidney failure. http://Chargeback.[employer]/DHnkdep http://Chargeback.[employer]/DHMCnkf Specimen Anatomical Collection Method Collection Time Receive d Time (Source) Location / / Volume Laterality Blood specimen 10/07/2017 8:48 AM 018 8:50 (specimen) EDT AM EDT Resulting Agency Comment Spec In Lab Danette Maxwell GANG PUNCH OPERATOR CHEMISTRY ORDERABLES Performing Organization Address City/[facility]/ZIP Code Phon e Number [address] (ABNORMAL) pro-Brain Natriuretic Peptide (10/07/2017 8:48 AM EDT) athologist Signature ProBNP 1,170 (H) <=125 [facility] pg/mL [facility] Specimen Anatomical Collection Method Collection Time Receive d Time (Source) Location / / Volume Laterality Blood specimen 10/07/2017 8:48 AM 018 8:50 (specimen) EDT AM EDT Resulting Agency Comment Spec In Lab Danette A Hans QUINONES CHEMISTRY ORDERABLES Performing Organization Address City/State/[place] [address] documented in this encounter Visit Diagnoses Diagnosis Chronic systolic heart failure documented in this encounter Care Teams Full Stack Php Developer Relationship Specialty Start Date End Date Lovely Vicente MD PCP - General 04/16/15 [address] [place] [address] documented as of this encounter
--- OUTSIDE RECORDS SUMMARY | 2022-04-08 08:48 | XMS_ITS | Encounter Summary ---
:1945 Author Organization [facility] Address [facility] [place] [address] Care Team Providers Name Role Phone Lovely Vicente MD Primary Care Provider Encounter Details Date Type Department Care Team Description 01/02/2020 Office Visit Dermatology at [facility] ctinic keratoses; Abdelrahman HOOPER MD History of melanoma; [address] [facility] History of dysplastic nevus; [place] [address] Multiple benign nevi; [phone] [facility] Seborrheic yossi lancaster; RD-DERMATOLGY Skin exam for malignant neoplasm [place], [place] [address] Social History Tobacco Use Types [...] Rigoberto Garcia MD Section of Dermatology [facility] documented in this encounter Plan of Treatment Upcoming Encounters Date Type Specialty Care Team Description 05/28/2022 Appointment Cardiology Zulma Dolan MD [facility] Dr [place], [place] [address] (Wo lissa) 05/28/2022 Laboratory Appointment Lab 05/28/2022 Office Visit Cardiology Zulma Dolan MD [facility] [place] [address] Liz Poole PA [facility] [place] [address] 06/10/2022 Office Visit Dermatology Laura Scherer MD [facility] DR TE[address] GR-DERMAT OLOGY [place], [place] [address] (Wo lissa) documented as of [...] skin documented in this encounter Care Teams Accounts Adjustable Clerk Relationship Specialty Start Date End Date Lovely Vicente MD PCP - General 04/16/15 [facility] [address] [place] [address] documented as of this encounter
--- OUTSIDE RECORDS SUMMARY | 2022-04-08 08:48 | XMS_ITS | Encounter Summary ---
:1945 Author Organization [facility] [place] [address] Care Team Providers Name Role Phone Lovely Vicente MD Primary Care Provider Encounter Details Date Type Department Care Team Description 11/07/2019 TH [place] Cardiology [place] [facility] Danette Maxwell (arteriosclerotic heart disease); (TeleHealth) [facility] STACIE Gomes Cardiomyopathy, ischemic; Drive [facility] S/P CABG x 3; [place], [place] MARIA VICTORIA (obstructive sleep apnea) on CPAP [phone] CARDIOLOGY [phone] [place], [place] [address] Social History Tobacco Use [...] the OR for a 3 vessel CABG (HTOMPSON->LAD, Seq SVG->OM1->D1) POD # 2 he was [...] regurgitation present. 07/07/2019 - 07/21/2019 Zio Patch Wafer Production Worker The patient had a minimum heart [...] at last check 6. Post-op atrial fibrillation [id number] (CHF, HTN, DM, vascular disease, thromboembolism) Amiodarone discontinued Continue coumadin INR managed by PCP 7. PAD 08/06/2017: Right 1st, 2nd, 3rd toe amputation 08/11/2017: Left??femoral arterial access, RLE??angiogram, Balloon angioplasty of R PT with Eleazar 2.5 x 80 10/25/2017: right popliteal-pedal bypass at [facility] Continue Coumadin 8. Hypothyrodism [...] Zulma Dolan MD [facility] [place], [place] [address] (Wo rk) 05/28/2022 Laboratory Appointment Lab 05/28/2022 Office Visit Cardiology Zulma Dolan MD [facility] [place] [address] Liz Poole PA [facility] [place] [address] 06/10/2022 Office Visit Dermatology Laura Scherer MD [facility] DR [address]DERMAT [place], [place] [address] (Wo rk) documented as [...] ic) documented in this encounter Care Teams Hash Slinger Relationship Specialty Start Date End Date Lovely Vicente MD PCP - General 04/16/[address] [place], [place] [address] documented as of this encounter
--- OUTSIDE RECORDS SUMMARY | 2022-04-08 08:48 | XMS_ITS | Encounter Summary ---
:1945 Author Organization [facility] [place] [address] Care Team Providers Name Role Phone Lovely Vicente MD Primary Care Provider Encounter Details Date Type Department Care Team Description 07/28/2019 Office Visit Cardiology [place] [facility] Danette Maxwell Chronic systolic heart failu re; [facility] A, STACIE ASHD (arteriosclerotic heart disease); Drive [facility] S/P CABG x 3; [place], [place] MARIA VICTORIA (obstructive sleep apnea) on CPAP; [phone] CARDIOLOGY Mixed hyperlipidemia [phone] [place], [place] [address] Social History Tobacco Use [...] in this encounter Progress Notes Danette Maxwell, ROLLING ATTENDANT - 07/28/2019 9:40 AM EST Images from [...] regurgitation present. 07/07/2019 - 07/21/2019 Zio Patch Hobber The patient had a minimum heart rate [...] K+ 4.5 today 6. Post-op atrial fibrillation [id number] (CHF, HTN, DM, vascular disease, thromboembolism) Amiodarone discontinued Continue coumadin INR managed by PCP 7. PAD 08/06/2017: Right 1st, 2nd, 3rd toe amputation 08/11/2017: Left??femoral arterial access, RLE??angiogram, Balloon angioplasty of R PT with Eleazar 2.5 x 80 10/25/2017: [facility] [...] advised: Refer to EP (Dr. Mcelroy in [place]) 5. Heart Failure Clinic follow up scheduled for: 3 months with proBNP and BMP Danette Maxwell APRN 07/28/2019 documented in this encounter Plan of Treatment Upcoming Encounters Date Type Specialty Care Team Description 05/28/2022 Appointment Cardiology Zulma Dolan MD [facility] [place], [place] [address] (Wo rk) 05/28/2022 Laboratory Appointment Lab 05/28/2022 Office Visit Cardiology Zulma Dolan MD [facility] [place] [address] Liz Poole PA [facility] Cardiology [place] [address] 06/10/2022 Office Visit Dermatology Laura Scherer MD [facility] DR TE[address] [place], [place] [address] (Wo rk) documented as of this encounter Results (ABNORMAL) Basic Metabolic Panel (non-fasting) (07/28/2019 8:36 AM EST) P athologist Signature Glucose Lvl 153 65 - 199 [facility] mg/dL [facility], [...] of body mass or the acutely ill. http://Sequence/[facility] eGFR 81 >=60 mL/min/1.73 m?? [facility] Comment: The eGFR was calculated using the CKD-EP I equation. As with all creatinine based estimates of kidney function, eGFR values calculated with the CKD-EPI equation are not accurate in patients wi th acute kidney failure, extremes of body mass or the acutely ill. http://Sequence/[facility] Specimen Anatomical Collection Method Collection Time Receive d Time (Source) Location / / Volume Laterality Blood specimen 07/28/2019 8:36 AM 020 8:46 (specimen) EST AM EST Resulting Agency Comment Spec In Lab Danette Maxwell APRN CHEMISTRY ORDERABLES Performing Organization Address City/State/ZIP Code Phon e Number [address] (ABNORMAL) pro-Brain Natriuretic Peptide [...] APRN CHEMISTRY ORDERABLES Performing Organization Address City/[facility]/[place] [address] documented in this encounter Visit Diagnoses Diagnosis Chronic systolic heart failure ASHD (arteriosclerotic heart disease) Coronary atherosclerosis of unspecified type of vessel, chipewwa or graft S/P CABG x 3 Postsurgical aortocoronary bypass status MARIA VICTORIA (obstructive sleep apnea) on CPAP Obstructive sleep apnea (adult) (pediatr ic) Mixed hyperlipidemia documented in this encounter Care Teams Kiln Transfer Operator Relationship Specialty Start Date End Date Lovely Vicente MD PCP - General 04/16/[address] [place] [address] documented as of this encounter
--- OUTSIDE RECORDS SUMMARY | 2022-04-08 08:48 | XMS_ITS | Encounter Summary ---
:1945 Author Organization [facility] [place] [address] Care Team Providers Name Role Phone Lovely Vicente MD Primary Care Provider Reason for Visit Reason Onset Date Comments Other 11/11/2017 Please call [facility] Encounter Details Date Type Department Care Team Description 11/11/2017 Telephone Cardiology at [facility] Danette Maxwell, Other (Please call [facility] IT SYSTEMS ANALYST CONSULTANT [facility] ) [place] [address] CARDIOLOGY [place], [place] [address] (Wo rk) Social History Tobacco [...] Dolan MD [facility] [address] [place], [place] [address] (Wo rk) 05/28/2022 Laboratory Appointment Lab 05/28/2022 Office Visit Cardiology Zulma Dolan MD [facility] [place] [address] Liz Poole PA [facility] [place] [address] 06/10/2022 Office Visit Dermatology Laura Scherer MD [facility] DR [address] [place], [place] [address] (Wo rk) documented as of this encounter Visit Diagnoses Not on filedocumented in this encounter Care Teams Stock Manager Relationship Specialty Start Date End Date Lovely Vicente MD PCP - General 04/16/15 [facility] [address] [place] [address] documented as of this encounter
--- OUTSIDE RECORDS SUMMARY | 2022-04-08 08:48 | XMS_ITS | Encounter Summary ---
:1945 Author Organization [facility] [place] [address] Care Team Providers Name Role Phone Lovely Vicente MD Primary Care Provider Reason for Visit Reason Onset Date Comments Other 03/24/2019 cardiac clearance ne eded Encounter Details Date Type Department Care Team Description 03/24/2019 Telephone Cardiology at [facility] Danette Maxwell, Other (cardiac [facility] HUMANITIES PROFESSOR clearance needed) [place] [address] CARDIOLOGY [place], [place] [address] (Wo rk) Social History Tobacco [...] AM EDT Leonela from [facility] [place] called requesting cardiac clearance for this patient who is to have a colonoscopy on 04/04/19. He is on anticoagulation and they will need to bridge him. Their phone # [phone], fax# [phone]. Thank you. documented in this encounter Plan of Treatment Upcoming Encounters Date Type Specialty Care Team Description 05/28/2022 Appointment Cardiology Zulma Dolan MD [facility] [place], [place] [address] (Wo rk) 05/28/2022 Laboratory Appointment Lab 05/28/2022 Office Visit Cardiology Zulma Dolan MD [facility] [place] [address] Liz Poole PA [facility] [place] [address] 06/10/2022 Office Visit Dermatology Laura Scherer MD [facility] DR [address] [place], [place] [address] (Wo rk) documented as of this encounter Visit Diagnoses Not on filedocumented in this encounter Care Teams Food And Beverage Checker Relationship Specialty Start Date End Date Lovely Vicente MD PCP - General 04/16/[address] [place] [address] documented as of this encounter
--- OUTSIDE RECORDS SUMMARY | 2022-04-08 08:49 | XMS_ITS | Encounter Summary ---
:1945 Author Organization [facility] [place] [address] Care Team Providers Name Role Phone Lovely Vicente MD Primary Care Provider Encounter Details Date Type Department Care Team Description 08/25/2017 Telephone Pain Management at [place], [place] [address] Social History Tobacco Use Types Packs/Day [...] Management Center Preauthorization Request Patient: Don Fatima [id number] Fax received from [employer] denying prior authorization for Lidocaine Patches prescribed by Barbra Soares APRN. RX insurance plan: [employer] insurance telephone: [phone] Patient Diagnosis: right foot pain secondary to PVD and ischemia ? Previous medications attempted: Tylenol, Tramadol, Dilaudid Authorization/Reference number: [id number] _x_ denied, provider and patient informed _x_ appeal initiated by provider, patient informed [place] Rodrigez, RN documented in this encounter Plan of Treatment Upcoming Encounters Date Type Specialty Care Team Description 05/28/2022 Appointment Cardiology Zulma Dolan MD [facility] [place], [place] [address] (Wo rk) 05/28/2022 Laboratory Appointment Lab 05/28/2022 Office Visit Cardiology Zulma Dolan MD [facility] [place] [address] Liz Poole PA [facility] [place] [address] 06/10/2022 Office Visit Dermatology Laura Scherer MD [facility] DR [address] [place], [place] [address] (Wo rk) documented as of this encounter Visit Diagnoses Not on filedocumented in this encounter Care Teams Nuclear Plant Technical Advisor Relationship Specialty Start Date End Date Lovely Vicente MD PCP - General 04/16/[address] [place] [address] documented as of this encounter
--- OUTSIDE RECORDS SUMMARY | 2022-04-08 08:49 | XMS_ITS | Encounter Summary ---
:1945 Author Organization [facility] [place] [address] Care Team Providers Name Role Phone Lovely Vicente MD Primary Care Provider Reason for Visit Reason Onset Date Comments VNA Calls 08/30/2017 Encounter Details Date Type Department Care Team Description 08/30/2017 Telephone Vascular Surgery at [facility] Cora Reid RN VNA Calls [facility] [place] [address] Social History Tobacco Use Types Packs/Day [...] Caller: Alfonso at [facility] [phone] Reason for call: Changing his wound vac [...] who had been in contact with [facility]'s Wound Care Nurse who advised him [...] Zulma Dolan MD [facility] [address] [place], [place] [address] (Wo rk) 05/28/2022 Laboratory Appointment Lab 05/28/2022 Office Visit Cardiology Zulma Dolan MD [facility] [place] [address] Liz Poole PA [facility] [place] [address] 06/10/2022 Office Visit Dermatology Laura Scherer MD [facility] [address] [place], [place] [address] (Wo rk) documented as of this encounter Visit Diagnoses Not on filedocumented in this encounter Care Teams Complex Care Nurse Relationship Specialty Start Date End Date Lovely Vicente MD PCP - General 04/16/[address] [place] [address] documented as of this encounter
--- OUTSIDE RECORDS SUMMARY | 2022-04-08 08:49 | XMS_ITS | Encounter Summary ---
:1945 Author Organization [facility] [place] [address] Care Team Providers Name Role Phone Lovely Vicente MD Primary Care Provider Encounter Details Date Type Department Care Team Description 08/19/2017 Hospital Encounter [place] [facility] Martha Teague, S/P CABG x [address] [facility] [place] [address] [place] [address] RD [phone] [facility] [place], [place] [address] (Wo rk) Social History [...] Cardiology Zulma Dolan MD [facility] [place], [place] [address] (Wo rk) 05/28/2022 Laboratory Appointment Lab 05/28/2022 Office Visit Cardiology Zulma Dolan MD [place] [address] Liz Poole PA [facility] [place] [address] 06/10/2022 Office Visit Dermatology Laura Scherer MD [...] 2017 EXAMINATION: XR CHEST PA AND LATERAL (classmarketsIC) CLINICAL HISTORY: CABG x 3 TECHNIQUE: PA [...] status documented in this encounter Care Teams Credit Professional Relationship Specialty Start Date End Date Lovely Vicente MD PCP - General 04/16/[address] [place], [place] [address]Y [facility] 1 [place] [address] documented as of this encounter
--- OUTSIDE RECORDS SUMMARY | 2022-04-08 08:49 | XMS_ITS | Encounter Summary ---
:1945 Author Organization [facility] [place] [address] Care Team Providers Name Role Phone Lovely Vicente MD Primary Care Provider Reason for Visit Reason Comments Follow-up I'm having trouble with the VAC Encounter Details Date Type Department Care Team Description 08/26/2017 Office Visit Vascular Surgery at [facility], [place]IE Mercado Atheroembolism of foot, right; [facility] [address] Delayed surgical wound healing, initial encounter; [facility] VASCULAR SURG YEHUDA Acute on chronic systolic congestive hea rt failure ; [place], [place] [address] [phone] Social History Tobacco Use Types Packs/Day Years [...] home and into the care of the [facility] [address]. However, since discharge from [facility] he has had some difficulty [...] performed by Manny Mcknight MD at [facility] MAIN OR ??? PRO AMPUTATION FOOT, TRANSMETATARSAL Right 08/09/2017 AMPUTATION, TRANSMETATARSAL (WRVU 12.71) performed by Yonathan Smith MD at [facility] MAIN OR ??? PRO CABG, ARTERIAL, SINGLE N/A 07/07/2017 @CABG, USING ARTERIAL GRAFT;SINGLE ARTERIAL GRAFT (WRVU 33.75) performed by Yuan Retana MD at [facility] MAIN OR ??? PRO CABG, ARTERY-VEIN, TWO N/A 07/07/2017 @CABG, TWO VENOUS GRAFTS & ARTERIAL GRAFT (WRVU 7.93) performed by Yuan Retana MD at [facility] MAIN OR ??? PRO COLONOSCOPY, REMV LESN, SNARE 01/16/2014 COLONOSCOPY, POLYPECTOMY, REMOVAL LESION BY SNARE performed by Nohemi Jaimes MD at [facility] ENDOSCOPY ??? PRO DRESSING CHANGE UNDER ANESTHESIA Right 08/11/2017 (MSURG) DRESSING CHANGE (FOR OTHER THAN IVAN) UNDER ANES. (WRVU 0.86) performed by Lamar Smith MD at [facility] MAIN OR ??? PRO ENDOSCOPY W/VIDEO-ASST VEIN HARVEST, CABG Right 07/07/2017 ENDOSCOPIC HARVEST VEIN(S) FOR CABG (WRVU 0.31) performed by Yuan Retana MD at [facility] MAIN OR ??? PRO THYROIDECTOMY 03/28/2013 THYROIDECTOMY, TOTAL OR COMPLETE performed by Manny Mcknight MD at [facility] MAIN OR Social Hx: Social History [...] Cardiology Zulma Dolan MD [facility] [place], [place] [address] (Wo rk) 05/28/2022 Laboratory Appointment Lab 05/28/2022 Office Visit Cardiology Zulma Dolan MD [facility] [place] [address] Liz Poole PA [facility] [place] [address] 06/10/2022 Office Visit Dermatology Laura Scherer MD [facility] [address] OGY [place], [place] [address] (Wo rk) documented as [...] [facility] Range Method Time Signature VB Text Department: Vascular Surgery Lab VASCUBASE Report Patient: [id number] (GREGORY FATIMA) CPT: 60960 ICD10: T81.89XA;I75.021 Referring Physician: ARIK CLEMENT ?? [...] Signature Glucose Lvl 98 65 - 199 [facility] mg/dL [facility] Comment: Diabetes: >=200 [...] [facility] Estimated GFR >60 >=60 [facility] Comment: The reported eGFR should be multiplied b y 1.2 for patients. The MDRD is not an appropriate measure o f renal function for patients with body mass extremes or in patients with acute kidney failure. http://Simple IT/DHnkdep http://Simple IT/DHMCnkf Specimen Anatomical Collection Method Collection Time Receive d Time (Source) Location / / Volume Laterality Blood specimen 08/26/2017 2:00 PM 018 2:15 (specimen) EST PM EST Resulting Agency Comment Spec In Lab Danette Maxwell CHEMICAL LAB SUPERVISOR CHEMISTRY ORDERABLES Performing Organization Address City/[facility]/ZIP Code Phon e Number [address] (ABNORMAL) pro-Brain Natriuretic Peptide (08/26/2017 2:00 PM EST) P athologist Signature ProBNP 2,373 (H) <=125 [facility] pg/mL [facility] Specimen Anatomical Collection Method Collection Time Receive d Time (Source) Location / / Volume Laterality Blood specimen 08/26/2017 2:00 PM 018 2:15 (specimen) EST PM EST Resulting Agency Comment Spec In Lab Danette A Carson STACIE CHEMISTRY ORDERABLES Performing Organization Address City/[facility] [place] [address] documented in this encounter Visit Diagnoses Diagnosis Atheroembolism of foot, right Delayed surgical wound healing, initial encounter Acute on chronic systolic congestive hea rt failure Acute on chronic systolic heart failure Ischemic cardiomyopathy Other specified forms of chronic ischemi c heart disease documented in this encounter Care Teams Roller Coaster Designer Relationship Specialty Start Date End Date Lovely Vicente MD PCP - General 04/16/[address] [place] [address] documented as of this encounter
--- OUTSIDE RECORDS SUMMARY | 2022-04-08 08:49 | XMS_ITS | Encounter Summary ---
:1945 Author Organization [facility] [place] [address] Care Team Providers Name Role Phone Lovely Vicente MD Primary Care Provider Encounter Details Date Type Department Care Team Description 09/03/2017 Telephone Vascular Surgery at [facility] Ninfa Clark, [place] [address] Social History Tobacco Use Types Packs/Day [...] help with the discomfort of the change. Sample Mounter told the VNA that I would ask [...] Appointment Cardiology Zulma Dolan MD [facility] [place], [place] [address] (Wo rk) 05/28/2022 Laboratory Appointment Lab 05/28/2022 Office Visit Cardiology Zulma Dolan MD [facility] [place] [address] Liz Poole PA [facility] [place] [address] 06/10/2022 Office Visit Dermatology Laura Scherer MD [facility] [address] [place], [place] [address] (Wo rk) documented as of this encounter Visit Diagnoses Not on filedocumented in this encounter Care Teams Warp Tier Relationship Specialty Start Date End Date Lovely Vicente MD PCP - General 04/16/[address] [place] [address] [address] [facility] [place] [address] documented as of this encounter
--- OUTSIDE RECORDS SUMMARY | 2022-04-08 08:49 | XMS_ITS | Encounter Summary ---
:1945 Author Organization [facility] [place] [address] Care Team Providers Name Role Phone Lovely Vicente MD Primary Care Provider Reason for Visit Reason Comments Follow-up Encounter Details Date Type Department Care Team Description 08/19/2017 Office Visit Cardiac Surgery at [facility], Jock S/P C ABG (coronary [facility], artery bypass graft) [facility] [place] CARDIOTHORACIC [address] SURGERY [phone] [place], [place] [address] Social History Tobacco Use [...] office. Best personal regards, Yuan Retana MD [phone] documented in this encounter Plan of Treatment Upcoming Encounters Date Type Specialty Care Team Description 05/28/2022 Appointment Cardiology Zulma Dolan MD [facility] er [address] [place] [address] (Wo rk) 05/28/2022 Laboratory Appointment Lab 05/28/2022 Office Visit Cardiology Zulma Dolan [place] [address] Liz Poole PA [facility] [place] [address] 06/10/2022 Office Visit Dermatology Laura Scherer MD [facility] ER DR [address] [place] [address] (Wo rk) documented as of this encounter [...] 454 ms MUSE SYSTEM (Bezet) Calculated P [place] 20 degrees MUSE SYSTEM Calculated R [place] -29 degrees MUSE SYSTEM Calculated T [place] 121 degrees MUSE SYSTEM INTERPRETATION Normal sinus rhythm MUSE SYSTEM Inferior infarct (cited on or before 25-JAN-2013) Anterior 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) T wave abnormality, consider lateral ischemia Abnormal ECG When compared with ECG of 06-AUG-2017 12:37, No signif icant change was found Confirmed by MD Luci, Taurus Braun ([id number]) on 08/19/2017 1 0:37:38 PM Specimen Anatomical [...] status documented in this encounter Care Teams Public Relations Manager Relationship Specialty Start Date End Date Lovely Vicente MD PCP - General 04/16/[address] [place] [address] documented as of this encounter
--- OUTSIDE RECORDS SUMMARY | 2022-04-08 08:49 | XMS_ITS | Encounter Summary ---
:1945 Author Organization [facility] [place] [address] Care Team Providers Name Role Phone Lovely Vicente MD Primary Care Provider Reason for Referral Diagnostic Test (Routine) - Closed Specialty Diagnoses / Procedures Referred By Contact Refer red To Contact Cardiology Diagnoses Ischemic cardiomyopathy Acute on chronic systolic congestive heart failure Danette Maxwell APRN [facility] Non-Inv Card Lab Procedures Echocardiogram Transthoracic(Leb) [facility] [place] [address] [place] [address] Referral ID Status Reason Start Date Expiration Date Visits V isits Requested Authorized [id number] Closed Specialty 08/30/2017 08/30/2018 1 1 Service Requested Encounter Details Date Type Department Care Team Description 08/26/2017 Office Visit Cardiology at [facility] Danette Maxwell Ischemic cardiomyopathy; [facility] STACIE Gomes Acute on chronic systolic congestive hea rt failure ; Drive [facility] ASCVD (arteriosclerotic card iovascular disease); [place], [place] PAF (paroxysmal atrial fibrillation); [phone] CARDIOLOGY PAD (peripheral artery disease) [phone] [place], [place] [address] Social History Tobacco Use Types Packs/Day Years [...] painful and swollen right 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 [...] Cardiology Zulma Dolan MD [facility] [place], [place] [address] (Wo rk) 05/28/2022 Laboratory Appointment Lab 05/28/2022 Office Visit Cardiology Zulma Dolan MD [facility] [place] [address] Liz Poole PA [facility] [place] [address] 06/10/2022 Office Visit Dermatology Laura Scherer MD [facility] DR [address] [place], [place] [address] (Wo rk) documented as of this encounter Results ECHOCARDIOGRAM COMPLETE W CONTRAST (10/07/2017 10:23 AM EDT) athologist Signature EF 45 HEART[facility] SYSTEM Anatomical Region Laterality Modality Other Specimen (Source) Anatomical Location Collection Method / Collectio n Time Received Time / Laterality Volume 10/07/2017 Narrative 10/07/2017 11:13 AM EDT Procedure: ?Transthoracic Echocardiogram Patient: ?NATALYA Mccollum ? (Age): 1945(72y) Med Rec#: ? [id number] ?Sex: ?M ? Site Loc: ? [facility] ?Ht / Wt: ??173(cm)/82(kg) Pt. Loc: ?Echo Lab ?BSA: ?1.96 Study Date: ?? 10/07/2017 ?Pt. Type: Outpatient Tape: ? Referring: Danette Maxwell Reading: Iker Cuevas ([id number]) Pitting Machine Operator: Yonathan Bocanegra Diagnosis: *ICD-10-PCS Ischemic cardiomyopathy [...] E-wave Vmax ?1.2 ?m/sec ? MV deceleration [id number] ?msec ? MV A-wave Vmax ?1 ?m/sec [...] ? Mid-Inferior ?Hypokinetic ? Mid-Inferoseptal ?Hypokinetic ? [place]-Septal ? Akinetic ? [place]-Anterior ? Hypokinetic ? [place]-Lateral ?Hypokinetic ? [place]-Inferior ? Hypokinetic ? [place]-Tip ?Akinetic ? This report has been electronically sign ed by: _ Iker Cuevas M.D. ? 10/07/2017 11:12:34 Images reviewed and interpretation [facility] Cardiac Ultrasound Laboratory Procedure Note Iker Cuevas MD - 10/07/2017Formatti ng of this note might be different from the original. Procedure: Transthoracic Echocardiogram Patient: NATALYA Mccollum (Age): [birth year]72y) Med Rec#: [id number] Sex: M Site Loc: [facility] Ht / Wt: 173(cm)/82(kg) Pt. Loc: Echo Lab BSA: 1.96 Study Date: 10/07/2017 Pt. Type: Outpati ent Tape: Referring: Danette Maxwell Reading: Iker Cuevas ([id number]) Pitting Machine Operator: Yonathan Bocanegra Diagnosis: *ICD-10-PCS Ischemic cardiomyopathy [...] MV E-wave Vmax 1.2 m/sec MV deceleration [id number] msec MV A-wave Vmax 1 m/sec MV [...] Akinetic Mid-Posterolateral Hypokinetic Mid-Inferior Hypokinetic Mid-Inferoseptal Hypokinetic [place]-Septal Akinetic [place]-Anterior Hypokinetic [place]-Lateral Hypokinetic [place]-Inferior Hypokinetic [place]-Tip Akinetic This report has been electronically sign ed by: _ Iker Cuevas M.D. 10/07/2017 11:12 :34 Images reviewed and interpretation [facility] Card[facility] Danette Maxwell APRN ECHO ORDERABLES Basic Metabolic Panel (non-fasting) (08/26/2017 2:00 PM EST) P athologist Signature Glucose Lvl 98 65 - [address] [facility] mg/dL [facility] Comment: Diabetes: >=200 mg/dL plus symp toms BUN 20 10 - 20 mg/dL [facility] Creatinine 1.17 0.80 - 1.50 [...] mmol/L [facility] Calcium 9.1 8.5 - 10.5 mg/dL [facility] Estimated GFR >60 >=60 [facility] Comment: The reported eGFR should be multiplied b y 1.2 for patients. The MDRD is not an appropriate measure o f renal function for patients with body mass extremes or in patients with acute kidney failure. http://Topix/DHnkdep http://Topix/DHMCnkf Specimen Anatomical Collection Method Collection Time Receive d Time (Source) Location / / Volume Laterality Blood specimen 08/26/2017 2:00 PM 018 2:15 (specimen) EST PM EST Resulting Agency Comment Spec In Lab Danette Maxwell APRN CHEMISTRY ORDERABLES Performing Organization Address City/State/ZIP Code Phon e Number [address] (ABNORMAL) pro-Brain Natriuretic Peptide (08/26/2017 2:00 PM EST) P athologist Signature ProBNP 2,373 (H) <=125 [facility] RYAN pg/mL [facility] Specimen Anatomical Collection Method Collection Time Receive d Time (Source) Location / / Volume Laterality Blood specimen 08/26/2017 2:00 PM 018 2:15 (specimen) EST PM EST Resulting Agency Comment Spec In Lab Danette Maxwell APRN CHEMISTRY ORDERABLES Performing Organization Address City/State/[place] [address] documented in this encounter [...] failure documented in this encounter Care Teams Key Person Relationship Specialty Start Date End Date Lovely Vicente MD PCP - General 04/16/[address] [place] [address] documented as of this encounter
--- OUTSIDE RECORDS SUMMARY | 2022-04-08 08:49 | XMS_ITS | Encounter Summary ---
:1945 Author Organization [facility] [place] [address] Care Team Providers Name Role Phone Lovely Vicente MD Primary Care Provider Encounter Details Date Type Department Care Team Description 09/07/2017 Laboratory Appointment Lab 3L [facility] [place] [id number] Social History Tobacco Use Types Packs/Day Years [...] MD [facility] er [address] [place], [place] [address] (Wo rk) 05/28/2022 Laboratory Appointment Lab 05/28/2022 Office Visit Cardiology Zulma Dolan MD [facility] [place] [address] Liz Poole PA [facility] [place] [address] 06/10/2022 Office Visit Dermatology Laura Scherer MD [facility] ER DR [address] [place], [place] [address] (Wo rk) documented as of this encounter [...] PM EST) athologist Signature Thyroglobulin 1.4 <=54.9 [facility] ng/mL [facility] Comment: Thyroglobulin levels may be [...] Organization Address City/State/ZIP [place] [address] TSH (09/07/2017 2:41 PM EST) athologist Signature TSH 3.93 0.27 - 4.20 [facility] Specimen Anatomical Collection Method Collection Time Receive d Time (Source) Location / / Volume Laterality Blood specimen 09/07/2017 2:41 PM 018 2:46 (specimen) EST PM EST Resulting Agency Comment Spec In Lab Luz Prescott MD CHEMISTRY ORDERABLES Performing Organization Address City/State/ZIP [place] [address] documented in this encounter Visit Diagnoses Diagnosis Hx of papillary thyroid carcinoma Personal history of malignant neoplasm o f thyroid documented in this encounter Care Teams Clinical Services Manager Relationship Specialty Start Date End Date Lovely Vicente MD PCP - General 04/16/[address] [place] [address] documented as of this encounter
--- OUTSIDE RECORDS SUMMARY | 2022-04-08 08:49 | XMS_ITS | Encounter Summary ---
:1945 Author Organization [facility] [place] [address] Care Team Providers Name Role Phone Lovely Vicente MD Primary Care Provider Encounter Details Date Type Department Care Team Description 08/19/2017 Office Visit Vascular Surgery at [place], PAD (peripheral artery [facility] TIRE DUSTER disease) [facility] [address] [place], [place] VASCULAR SURGERY [address] [place] [address] [phone] Social History Tobacco Use Types Packs/Day Years [...] ian-wound skin is mascerated and soggy. Dr. Simth was sent a picture and consulted via [...] Cardiology Zulma Dolan MD [facility] [place], [place] [address] (Wo rk) 05/28/2022 Laboratory Appointment Lab 05/28/2022 Office Visit Cardiology Zulma Dolan MD [facility] [place] [address] Liz Poole PA [facility] [place] [address] 06/10/2022 Office Visit Dermatology Laura Scherer MD [facility] DR [address] [place], [place] [address] (Wo rk) documented as of this encounter Visit Diagnoses Diagnosis PAD (peripheral artery disease) Peripheral vascular disease, unspecified documented in this encounter Care Teams Cushion Padder Relationship Specialty Start Date End Date Lovely Vicente MD PCP - General 04/16/[address] [place] [address] documented as of this encounter
--- OUTSIDE RECORDS SUMMARY | 2022-04-08 08:49 | XMS_ITS | Encounter Summary ---
:1945 Author Organization [facility] [place] [address] Care Team Providers Name Role Phone Lovely Vicente MD Primary Care Provider Encounter Details Date Type Department Care Team Description 09/07/2017 Office Visit Endocrinology at [facility] Maria Ines Stallings of [facility] MD [place] [address] CENTER [phone] ENDOCRINOLOGY DEPT [place], [place] [address] Social History Tobacco Use Types [...] MD [facility] er Dr [place], [place] [address] (Wo rk) 05/28/2022 Laboratory Appointment Lab 05/28/2022 Office Visit Cardiology Zulma Dolan MD [facility] [place] [address] Liz Poole PA [facility] [place] [address] 06/10/2022 Office Visit Dermatology Laura Scherer MD [facility] ER DR [address] [place], [place] [address] (Wo rk) documented as of this encounter Visit Diagnoses Diagnosis Hx of papillary thyroid carcinoma Personal history of malignant neoplasm o f thyroid documented in this encounter Care Teams Pickle Pumper Relationship Specialty Start Date End Date Lovely Vicente MD PCP - General 04/16/15 [facility] [address] [place] [address] documented as of this encounter
--- OUTSIDE RECORDS SUMMARY | 2022-04-08 08:49 | XMS_ITS | Encounter Summary ---
:1945 Author Organization [place] [address] Care Team Providers Name Role Phone Lovely Vicente MD Primary Care Provider Encounter Details Date Type Department Care Team Description 09/06/2017 Orders Only Vascular Surgery at [facility] Ninfa Clark, [facility] [place] [address] Social History Tobacco Use Types Packs/Day [...] Cardiology Zulma Dolan MD [facility] er [place], [place] [address] (Wo rk) 05/28/2022 Laboratory Appointment Lab 05/28/2022 Office Visit Cardiology Zulma Dolan MD [facility] [place] [address] Liz Poole PA [facility] [place] [address] 06/10/2022 Office Visit Dermatology Laura Scherer MD [facility] [address] [place], [place] [address] (Wo rk) documented as of this encounter Visit Diagnoses Not on filedocumented in this encounter Care Teams Batch Mixer Operator Relationship Specialty Start Date End Date Lovely Vicente MD PCP - General 04/16/[address] [place] [address] documented as of this encounter
--- OUTSIDE RECORDS SUMMARY | 2022-04-08 08:49 | XMS_ITS | Encounter Summary ---
:1945 Author Organization [place] [address] Care Team Providers Name Role Phone Lovely Vicente MD Primary Care Provider Encounter Details Date Type Department Care Team Description 09/06/2017 Telephone Vascular Surgery at [facility] Ninfa Clark, [place] [address] Social History Tobacco Use Types Packs/Day [...] Cardiology Zulma Dolan MD [facility] [place], [place] [address] (Wo rk) 05/28/2022 Laboratory Appointment Lab 05/28/2022 Office Visit Cardiology Zulma Dolan MD [facility] [place] [address] Liz Poole PA [facility] [place] [address] 06/10/2022 Office Visit Dermatology Laura Scherer MD [facility] DR [address] [place], [place] [address] (Wo rk) documented as of this encounter Visit Diagnoses Not on filedocumented in this encounter Care Teams Custodial Manager Relationship Specialty Start Date End Date Lovely Vicente MD PCP - General 04/16/[address] [place] [address] documented as of this encounter
--- OUTSIDE RECORDS SUMMARY | 2022-04-08 08:49 | XMS_ITS | Encounter Summary ---
:1945 Author Organization [facility] [place] [address] Care Team Providers Name Role Phone Lovely Vicente MD Primary Care Provider Encounter Details Date Type Department Care Team Description 08/30/2017 [facility] ischemia [facility] [address] [place], [place] VASCULAR SURGERY [address] [place] [address] [phone] Social History Tobacco Use Types Packs/Day Years [...] Smith MD - 08/30/2017 2:00 PM EST [facility] staff: Patient returns. He is doing [...] Zulma Dolan MD [facility] Dr [place], [place] [address] (Wo rk) 05/28/2022 Laboratory Appointment Lab 05/28/2022 Office Visit Cardiology Zulma Dolan MD [facility] [place] [address] Liz Poole PA [facility] [place] [address] 06/10/2022 Office Visit Dermatology Laura Scherer MD [facility] [address] [place], [place] [address] (Wo rk) documented as of this encounter Visit Diagnoses Diagnosis Critical lower limb ischemia Unspecified circulatory system disorder documented in this encounter Care Teams Grain Oilseed Or Pasture Farm Manager Relationship Specialty Start Date End Date Lovely Vicente MD PCP - General 04/16/[address] [place] [address] documented as of this encounter
--- OUTSIDE RECORDS SUMMARY | 2022-04-08 08:49 | XMS_ITS | Encounter Summary ---
:1945 Author Organization [facility] [place] [address] Care Team Providers Name Role Phone Lovely Vicente MD Primary Care Provider Encounter Details Date Type Department Care Team Description 08/26/2017 Hospital Encounter Vascular Lab at [facility], Athero embolism of foot, right; [place], [place] Delayed surgi nusrat wound healing[place] [phone] Social History Tobacco Use Types Packs/Day Years [...] Zulma Dolan MD [facility] [place], [place] [address] (Wo rk) 05/28/2022 Laboratory Appointment Lab 05/28/2022 Office Visit Cardiology Zulma Dolan MD [facility] [place] [address] Liz Poole PA [facility] [place] [address] 06/10/2022 Office Visit Dermatology Laura Scherer MD [facility] [address] [place], [place] [address] (Wo rk) documented as of this encounter Procedures Procedure Name Priority Date/Time Associated Diagnosis Comme nts JULIAN/TCPO2 Routine 08/26/2017 2:09 PM Atheroembolism of foot , Results for this (TRANSCUTANEOUS EST right procedure are in OXYGEN PRESSURE Delayed surgical wound th e results TEST) healing, initial section. encounter documented in this encounter Results JULAIN/TCPO2 (08/26/2017 2:09 PM EST) Component Value Ref Test Analysis Performed At [facility] Range Method Time Signature VB Text Department: Vascular Surgery Lab VAS[facility] Report Patient: [id number] (DON HOANG) CPT: 88549 ICD10: T81.89XA;I75.021 Referring Physician: ELVER BLOOM ?? [...] encounter documented in this encounter Care Teams Per Diem Rn Relationship Specialty Start Date End Date Lovely Vicente MD PCP - General 04/16/[address] [place] [address] documented as of this encounter
--- OUTSIDE RECORDS SUMMARY | 2022-04-08 08:50 | XMS_ITS | Encounter Summary ---
:1945 [place] [address] Care Team Providers Name Role Phone Lovely Vicente MD Primary Care Provider Reason for Visit Auth/Cert Specialty Diagnoses / Procedures Referred By Contact Refer red To Contact Diagnoses Critical lower limb ischemia CELLULITIS RT FOOT Procedures EMERGENCY Referral ID Status Reason Start Date Expiration Date Visits Requ ested Visits Authorized [id number] 1 1 Encounter Details Date Type Department Care Team Description 08/06/2017 - Hospital Encounter 5 Yonathan Oneill lower limb ischemia; 08/16/2017 Su Flores MD Ischemic foot Hospital [facility] DR Siddiqui [place] [phone] Social History Tobacco Use Types Packs/Day Years [...] addition to 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 Patient [...] Dorsalis Pedis (Ankle) Artery ?132 ? 0.94 ??Ware-Biphasic ? Posterior Tibial (Ankle) Artery ??154 ? 1.10 ??Ware-Biphasic ? Fourth Toe ? 67 ?0.48 ?? [...] the foot. Discharge Conditions/Prognosis: Good Discharge to: [facility] Rehab Discharge Medications: Your Medications New [...] For any problems or questions please call [phone] ZELDA Smith, internal combustion engine inspector Nurse Clinician For issues on weeknights after 5pm and weekends please call [phone] and ask for the Vascular Fellow organizational development consultant. General Instructions None Future Appointments and Orders Future Appointments Provider Department Dept Phone 08/26/2017 4:00 PM Aurelia Rivera PA [facility] [place] [phone] 09/07/2017 3:00 PM LAB, THREE L Lab 3L [facility] [phone] 09/07/2017 4:00 PM Luz Prescott MD Endocrinology [facility] [place] [phone] 09/09/2017 8:00 AM Barbra Soares APRN Pain Management [facility] [place] [phone] Please bring a list of your current [...] For any problems or questions please call [phone] ZELDA Smith, internal combustion engine inspector Nurse Clinician For issues on weeknights after 5pm and weekends please call [phone] and ask for the Vascular Fellow organizational development consultant. documented in this encounter Medications at [...] Discharge Note Patient Destination: [facility] ([facility]) [address] [place] [address] Transportation: with (at bedside) Time of Discharge: by 12 noon Level of Care: swing Patient Aware: yes Family Notified: yes Md to call report to: Yissel Quintero SPEECH COACH already called RN to call report to: [phone] Shirin Wolf Office of Care Management Pager [phone] Shirin Wolf RN - 08/16/2017 10:50 AM EST [facility] has offered pt swing bed. Pt and accept bed. will transport via car. SPEECH COACH Yissel Quintero aware; d/c paperwork will be completed by 12 noon. [facility] requests pt arrival by 1400 today; SPEECH COACH, RN, and family aware. SPEECH COACH called [facility] and was told that they prefer pt to arrive with wound vac dressing applied but clamped. SPEECH COACH applied new wound vac dressing. RN has [facility] number to call report. PASSR completed; SPEECH COACH paged to request provider signature in highlighted space. Indigo from [facility] notified via email that home wound vac now cancelled; [facility] has picked up from room and order cancelled. Packet started and provided to community living coach. Medicare important message explained to patient, patient signed. Copy provided to patient and signature page to OCM for inclusion in pt EMR. Radha Georges - 08/16/2017 10:34 AM EST Office of Care Management/Popcorn Vendor Patient Name: Gregory Hoang : 1945 Patient has been offered a swing bed at [facility]. The patient will be transported by private transportation. No MD to MD report necessary Please call Nursing Report to [phone], ask for mapping engineer. Info to accompany patient: Narcotic Prescriptions Copies of Medication Administration Records and IV sheets for past 10 days. Plan: Popcorn Vendor will be available to the patient and Ophthalmologist-RN and/or Dust Mop Maker for further assistance. Patient will be discharged to: [place] [phone] Radha Powers, Popcorn Vendor Mira Black, VAMSI - 08/15/2017 10:05 PM EST [address] Flores to ask if he wanted to hold metoprolol dose. BP 95/58. OK to hold this dose Courtney Brito - 08/15/2017 3:26 PM EST Office of Care Management(OCM)/Popcorn Vendor(RS)/ D/C Planning re : Patient is medically ready for d/c today. RS has been in contact with [facility] to see if they could offer a bed. [facility] is still reviewing the case and need their MD to review chart prior to accepting or declining. OCM team needs to check in with [facility] tomorrow to check on status. 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 staff: Looks well. Vac in [...] patient's referral to: [facility] PHONE: [phone] FAX: [phone] CM spoke with RS who said that [...] rehab. Await recommendations from PT. Covering pager #[phone]. 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 Machining Associate Kaitlin Saha, RN Pager #[phone] Payam Rosales - 08/13/2017 2:37 PM EST Labour Market Economist Encounter Note Patient Name: Gregory Hoang : [id number] MR#: [id number] Admit Date: 08/06/2017 1:41 PM Hospital Day 7 days Narrative: Visited to introduce and assess acceptance of Labour Market Economist services. Pt was awake, alert, oriented and in chair and family was there. Assessment:Patient coping positively with stresses of illness/hospitalization at this time. Pt says that he is hoping to get better and his family was there. Pt says that he has family care and supportand taking one day at time. Intervention and Outcome: Provided emotional support and encouraging presence. 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 PHONE: [phone] FAX: [phone]. And Home NPWT (Negative Pressure Wound Therapy) aka wound vac device made available to pt. Serial # confirmed. Reviewed [facility] Proof of Delivery/Assignment of Benefits Statement(POD/AOB) Form w patient or authorized agent signing on behalf of patient. Copy of POD/AOB provided to pt and other copy faxed to [employer] @ fax# [phone] Expected date of discharge: 08/12/2017. 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 Heparin gtt continues to run. [...] : 1945 AGE 72 y.o. 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 Vascular resident organizational development consultant and will forward result to the team prior to rounds. 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 Patient [...] [facility] MA[facility] OR Functional Status/Social Hx: Quit [...] nonopacification; splenic infarcts not Excluded. Assessment: Gregory Haong is a 72 y.o. 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 Post op course complicated by left blue toes with CTA showing R PHILOSOPHY FACULTY pseudoaneurysm (now thrombosed) and occluded ATs bilaterally. [...] 2.5x80 5. Completion RLE angiogram 6. L PHILOSOPHY FACULTY angiogram 7. 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 - L PHILOSOPHY FACULTY angriogram demonstrated: High femoral bifurcation over the proximal half of the femoral head. L PHILOSOPHY FACULTY access in the distal L PHILOSOPHY FACULTY. - Closure device: Mynx Technical Procedure: The [...] for a 45cm 5F Destination. V18 and [place] and QuickCross catheters were used to select [...] 5F. A stationed picture of the L PHILOSOPHY FACULTY was performed as the patient was noted to have a very high bifurcation. Access appeared in the distal R PHILOSOPHY FACULTY. Closure and sheath removal was performed with [...] PM EST 1440 report called to 5 [place] nurse Tessa AGUSTIN documented in this encounter [...] with pt and pt's spouse. Discharge to [facility]. Goal: Individualization & Mutuality Outcome: Outcome [...] sit/sit to supine -- Bed Mobility Goal, [place] Level independent -- Bed Mobility Goal, Date [...] days -- Transfer Training Goal, Activity Type lft-kz-gbwqc/rumkx-ft-uwo -- Transfer Train Goal, [place] Level conditional independence -- Transfer Train Goal, [...] call cabello within reach, Hourly rounding by RN/PLEAT PATTERNMAKER. Bed alarm / Chair alarm. Patient-specific fall [...] Operative Note Patient Name: Gregory Hoang : [id number] MR#: [id number] Case Date: 08/09/2017 Surgeon: Surgeon(s) and Role: [...] 2.5x80 5. Completion RLE angiogram 6. L PHILOSOPHY FACULTY angiogram 7. Mynx closure Precautions/Restrictions: fall, sternal [...] other (see comments) (or swing bed) Pager: [phone] BASSAM ELIAS, PT 08/14/2017 Inpatient Physical Therapy [...] to Achieve by discharge Gait Training Goal, [place] Level conditional independence;set up required Gait Training [...] these facilities over the weekend except for [facility]. CM spoke with [facility] CM Drea Sandhu, VAMSI who said that they do not anticipate any beds over the weekend. Reviewed with patient/ that they need to be aware that patient will need to take the first bed offered at the facilities that they make referrals to. Their choices are: 1- [facility] PHONE: [phone] FAX: [phone] 2- [facility] ([facility]) [address] [place] [address] 3- [facility]) [address] [place] [address] I have discussed Medicare/Private Insurance [...] RS/CM on Wednesday to follow-up. Covering pager #[phone] for today. Plan of Care - Henirque Marks RN - 08/14/2017 5:49 AM EST [...] with additional findings of pseudoaneurysm on R PHILOSOPHY FACULTY and bilateral anterior tibial artery occlusions. Was [...] an outpatient once discharged. Have patient call [phone] to set up an appointment. Follow-up: Dermatology will sign-off for now. Please do not hesitate to contact us if you have any questions orconcerns. Impression and Recommendations discussed with primary team on 08/13/2017. Karo Henderson MD Resident in Dermatology Section of Dermatology, Department of Surgery [facility] Pager [phone] Patient seen and evaluated with staff Belt Loop Machine Operator: Halima Cordero MD Section of Dermatology Research [...] 2.5x80 5. Completion RLE angiogram 6. L PHILOSOPHY FACULTY angiogram 7. Mynx closure Active Non-Hospital Problems [...] home with home health ([facility] PT[facility]OT) Pager: [phone] YASIR TELLO OT 08/12/2017 Occupational Therapy Rehabilitation [...] 2.5x80 5. Completion RLE angiogram 6. L PHILOSOPHY FACULTY angiogram 7. Mynx closure Past Medical History: [...] with 24/7 assistance and maximal services) Pager: [phone] NICHOLAS MORA, PT 08/12/2017 Physical Therapy Rehabilitation [...] sit/sit to supine -- Bed Mobility Goal, [place] Level independent -- Bed Mobility Goal, Outcome Achieved -- goal ongoing Goal: Gait Training Goal Stand Alone Therapy Goal Outcome: Ongoing (Interventions Implemented as Appropriate) 08/11/17 1310 08/12/17 1510 Gait Training Goal Gait Training Goal, Date Established 08/11/17 -- Gait Training Goal, Time to Achieve 5 - 7 days -- Gait Training Goal, [place] Level conditional independence -- Gait Training Goal, [...] days -- Transfer Training Goal, Activity Type uvx-gm-sufai/qybby-yl-iic -- Transfer Train Goal, [place] Level conditional independence -- Transfer Training Goal, [...] Operative Note Patient Name: Gregory Hoang : [id number] MR#: [id number] Case Date: 08/11/2017 Surgeon: Surgeon(s) and Role: [...] 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 Completion RLE angiogram 6. L PHILOSOPHY FACULTY angiogram 7. Mynx closure He is very [...] Anticipated Discharge Disposition: inpatient rehabilitation facility Pager: [phone] LAWRENCE GONZALEZ, PT 08/11/2017 Physical Therapy Rehabilitation [...] to sit/sit to supine Bed Mobility Goal, [place] Level independent Goal: Gait Training Goal Stand Alone Therapy Goal Outcome: Ongoing (Interventions Implemented as Appropriate) 08/11/17 1310 Gait Training Goal Gait Training Goal, Date Established 08/11/17 Gait Training Goal, Time to Achieve 5 - 7 days Gait Training Goal, [place] Level conditional independence Gait Training Goal, Assist [...] 7 days Transfer Training Goal, Activity Type vpv-ot-bpuyu/ozqik-fv-fvq Transfer Train Goal, [place] Level conditional independence Plan of [facility] [...] call cabello within reach, Hourly rounding by RN/PLEAT PATTERNMAKER. Bed alarm / Chair alarm. ? Patient-specific [...] file Kisha Hoang [facility] [phone] Current Coping/Education/Information Needs: pt and spouse state [...] Health/Prescription Coverage: Primary Insurance: MEDICARE Secondary Insurance: [employer] [facility] Prescription Coverage: See above Preferred Pharmacy: [id number] Other: N/A Primary Care Provider: Lovely Vicente MD [phone] Patient/Caregiver Goals of Treatment: Patient plans to [...] of care planning. Kaitlin Saha RN Pager: [phone] Plan of Care - Melba Jaramillo RN [...] Overview Goal: Plan of Care Review 08/08/17 2134 Coping/Psychosocial Plan Of Care Reviewed With patient [...] call cabello within reach, Hourly rounding by RN/PLEAT PATTERNMAKER. Bed alarm / Chair alarm. Patient-specific fall [...] at bedside and MD TEAM Carrying pager [phone] contacted (via Radio page) and notified of [...] Cardiology Zulma Dolan MD [facility] [place], [place] [address] (Wo rk) 05/28/2022 Laboratory Appointment Lab 05/28/2022 Office Visit Cardiology Zulma Dolan MD [facility] [place] [address] Liz Poole PA [facility] [place] [address] 06/10/2022 Office Visit Dermatology Laura Scherer MD [facility] DR [facility] [facility], [place] [address] (Wo rk) documented as of [...] Signature POC Glucose 160 65 - 199 [facility] mg/dL [facility] Comment: Supplemental ranges: <140 mg/dL before meals <180 mg/dL all other times of the day Specimen Anatomical Collection Method Collection Time Receive d Time (Source) Location / / Volume Laterality Blood specimen 08/16/2017 7:28 AM 018 7:28 (specimen) EST AM EST Yonathan Smith MD POINT OF CARE TEST ORDERABLE S Performing Organization Address City/State/[place] [address] (ABNORMAL) Differential, Automated (08/16/2017 5:08 AM EST) [facility] Method Time Signature Neutrophils % 73.9 % [facility] Neutr Abs (ANC) 5.37 1.70 - [facility] 6.10 [facility] x10(3)/[facility] LABORATORY Lymphocytes % 10.1 % [facility] Lymphocytes Abs 0.7 (L) 0.9 - 3.2 [facility] x10(3)/[facility] LABORATORY Monocytes % 10.1 % [facility] Monocyte Abs 0.7 0.3 - 0.9 [facility] x10(3)/[facility] LABORATORY Eosinophils % 5.1 % [facility] Eosinophils Abs 0.4 0.0 - 0.4 [facility] x10(3)/[facility] LABORATORY Basophils % 0.4 % [facility] Basophils Abs 0.0 0.0 - 0.1 [facility] x10(3)/[facility] LABORATORY Immature Gran % 0.40 % [facility] [...] Gran Abs 0.03 0.00 - 0.04 x10(3)/[facility] Y [facility] LABORATORY Specimen Anatomical Collection Method Collection Time Receive d Time (Source) Location / / Volume Laterality Blood specimen 08/16/2017 5:08 AM 018 5:20 (specimen) EST AM EST Resulting Agency Comment Spec In Lab Yonathan Smith MD HEMATOLOGY ORDERABLES Performing Organization Address City/State/[place] [address] (ABNORMAL) Hemogram (08/16/2017 5:08 AM EST) Analysis Performed At Patho logist Time Signature WBC 7.3 4.0 - 9.5 [facility] x10(3)/[facility] LABORATORY RBC 3.36 (L) 4.58 - [place] [facility] 5.54 [facility] x10(6)/[facility] LABORATORY Hemoglobin 9.7 (L) 13.7 [facility] 16.5 gm/dL [facility] Hematocrit 30.3 (L) 40.5 - [facility] 48.5 % [facility] MCV 90.2 82.9 - [facility] 93.1 [facility] LABORATORY MCH 28.9 27.5 - [facility] 32.1 pg [facility] MCHC 32.0 32.0 - [facility] 35.7 gm/dL [facility] Platelets 282 145 - 357 [facility] x10(3)/[facility] LABORATORY RDWSD 53.9 (H) 36.0 - [facility] 45.0 [facility] LABORATORY RDWCV 16.5 (H) 11.4 - [facility] SU 13.8 % [facility] MPV 9.0 7.6 - 12.9 [facility] LABORATORY nRBC % Auto 0.0 % [facility] nRBC Abs Auto 0.000 0.000 - [facility] SU 0.000 [facility] x10(3)/[facility] LABORATORY Specimen Anatomical Collection Method Collection Time Receive d Time (Source) Location / / Volume Laterality Blood specimen 08/16/2017 5:08 AM 018 5:20 (specimen) EST AM EST Resulting Agency Comment Spec In Lab Yonathan Smith MD HEMATOLOGY ORDERABLES Performing Organization Address City/State/[place] [address] (ABNORMAL) Basic Metabolic Panel (non-fasting) (08/16/2017 5:08 AM EST) P athologist Signature Glucose Lvl 141 65 - 199 [facility] mg/dL [facility] Comment: Diabetes: [...] CENTER LABORATORY Estimated GFR 57 (L) >=60 [facility] Comment: The reported eGFR should be multiplied b y 1.2 for patients. The MDRD is not an appropriate measure o f renal function for patients with body mass extremes or in patients with acute kidney failure. http://Cue/DHnkdep http://Cue/DHMCnkf Specimen Anatomical Collection Method Collection Time Receive d Time (Source) Location / / Volume Laterality Blood specimen 08/16/2017 5:08 AM 018 5:20 (specimen) EST AM EST Resulting Agency Comment Spec In Lab Yonathan Smith MD CHEMISTRY ORDERABLES Performing Organization Address City/State/[place] [address] (ABNORMAL) Prothrombin Time (08/16/2017 [...] Address City/State/ZIP Code Phon e Number [address] POCT Glucose (08/16/2017 4:09 AM EST) athologist Signature POC Glucose 147 65 - [address] [facility] mg/dL [facility] Comment: Supplemental ranges: <140 mg/dL before meals <180 mg/dL all other times of the day Specimen Anatomical Collection Method Collection Time Receive d Time (Source) Location / / Volume Laterality Blood specimen 08/16/2017 4:09 AM 018 4:09 (specimen) EST AM EST Yonathan Smith MD POINT OF CARE TEST ORDERABLE S Performing Organization Address City/State/[place] [address] POCT Glucose (08/15/2017 11:56 PM EST) athologist Signature POC Glucose 176 65 - [address] [facility] SU mg/dL [facility] Comment: Supplemental [...] Address City/State/[place] [address] POCT Glucose (08/15/2017 8:05 PM EST) athologist Signature POC Glucose 136 65 - 199 [facility] mg/dL [facility] [...] Address City/State/[place] [address] (ABNORMAL) POCT Glucose (08/15/2017 4:50 PM EST) athologist Signature POC Glucose 232 (H) 65 - [address] [facility] SU mg/dL [facility] Comment: Supplemental [...] Address City/State/[place] [address] POCT Glucose (08/15/2017 12:04 PM EST) athologist Signature POC Glucose 135 65 - [address] [facility] SU mg/dL [facility] Comment: Supplemental [...] Address City/State/[place] [address] POCT Glucose (08/15/2017 7:36 AM EST) P athologist Signature POC Glucose 124 65 - 199 [facility] mg/dL [facility] Comment: Supplemental ranges: <140 mg/dL before meals <180 mg/dL all other times of the day Specimen Anatomical Collection Method Collection Time Receive d Time (Source) Location / / Volume Laterality Blood specimen 08/15/2017 7:36 AM 018 7:36 (specimen) EST AM EST Yonathan Smith MD POINT OF CARE TEST ORDERABLE S Performing Organization Address City/State/[place] [address] (ABNORMAL) Differential, Automated (08/15/2017 6:22 AM EST) Patholo gist Method Time Signature Neutrophils % 76.1 % [facility] Neutr Abs (ANC) 6.62 (H) 1.70 - [facility] 6.10 [facility] x10(3)/[facility] L LABORATORY Lymphocytes % 9.3 % [facility] Lymphocytes Abs 0.8 (L) 0.9 - 3.2 [facility] x10(3)/[facility] LABORATORY Monocytes % 9.4 % [facility] LABORATORY Monocyte Abs 0.8 0.3 - 0.9 [facility] x10(3)/[facility] LABORATORY Eosinophils % 4.0 % [facility] LABORATORY Eosinophils Abs 0.4 0.0 - 0.4 [facility] x10(3)/[facility] LABORATORY Basophils % 0.6 % [facility] LABORATORY Basophils Abs 0.0 0.0 - 0.1 [facility] x10(3)/[facility] LABORATORY Immature Gran % 0.60 % [...] Organization Address City/State/[place] [address] (ABNORMAL) Hemogram (08/15/2017 6:22 AM EST) Analysis Performed At Patho logist Time Signature WBC 8.7 4.0 - 9.5 [facility] x10(3)/[facility] LABORATORY RBC 3.21 (L) 4.58 - [facility] 5.54 [facility] x10(6)/[facility] LABORATORY Hemoglobin 9.1 (L) 13.7 - [facility] 16.5 gm/dL [facility] LABORATORY Hematocrit 29.0 (L) 40.5 - [facility] 48.5 % [facility] LABORATORY MCV 90.3 82.9 [facility] 93.1 [facility] LABORATORY MCH 28.3 27.5 - [facility] 32.1 pg [facility] LABORATORY MCHC 31.4 (L) 32.0 - [facility] 35.[facility] gm/dL [facility] LABORATORY Platelets 254 145 - 357 [facility] x10(3)/[facility] LABORATORY RDWSD 53.9 (H) 36.0 - [facility] 45.0 [facility] LABORATORY RDWCV 16.3 (H) 11.4 - [facility] SU 13.8 % [facility] LABORATORY MPV 8.8 7.6 - 12.9 [facility] LABORATORY nRBC % Auto 0.0 % [facility] LABORATORY nRBC Abs Auto 0.000 0.000 - [facility] SU 0.000 [facility] x10(3)/[facility] LABORATORY Specimen Anatomical Collection Method Collection Time Receive d Time (Source) Location / / Volume Laterality Blood specimen 08/15/2017 6:22 AM 018 6:33 (specimen) EST AM EST Resulting Agency Comment Spec In Lab Yonathan Smith MD HEMATOLOGY ORDERABLES Performing Organization Address City/[facility]/[place] [address] (ABNORMAL) Basic Metabolic Panel (non-fasting) (08/15/2017 6:22 AM EST) athologist Signature Glucose Lvl 118 65 - 199 [facility] mg/dL [facility] LABORATORY Comment: Diabetes: [...] or in patients with acute kidney failure. [email or web address] [email or web address] Specimen Anatomical Collection Method Collection Time Receive d Time (Source) Location / / Volume Laterality Blood specimen 08/15/2017 6:22 AM 018 6:33 (specimen) EST AM EST Resulting Agency Comment Spec In Lab Yonathan Smith MD CHEMISTRY ORDERABLES Performing Organization Address City/[facility]/[place] [address] (ABNORMAL) Prothrombin Time (08/15/2017 [...] Address City/State/[place] [address] POCT Glucose (08/15/2017 4:33 AM EST) athologist Signature POC Glucose 164 65 - 199 [facility] mg/dL [facility] LABORATORY Comment: Supplemental ranges: <140 mg/dL before meals <180 mg/dL all other times of the day Specimen Anatomical Collection Method Collection Time Receive d Time (Source) Location / / Volume Laterality Blood specimen 08/15/2017 4:33 AM 018 4:33 (specimen) EST AM EST Yonathan Smith MD POINT OF CARE TEST ORDERABLE S Performing Organization Address City/State/[place] [address] POCT Glucose (08/15/2017 12:12 AM EST) athologist Signature POC Glucose 89 65 - 199 [facility] mg/dL [facility] LABOR[facility] Comment: Supplemental ranges: <140 mg/dL before meals <180 mg/dL all other times of the day Specimen Anatomical Collection Method Collection Time Receive d Time (Source) Location / / Volume Laterality Blood specimen 08/15/2017 12:12 8 (specimen) AM EST 12:12 AM EST Yonathan Smith MD POINT OF CARE TEST ORDERABLE S Performing Organization Address City/State/[place] [address] (ABNORMAL) POCT Glucose (08/14/2017 [...] Address City/State/[place] [address] POCT Glucose (08/14/2017 5:11 PM EST) athologist Signature POC Glucose 174 65 - 199 [place] [facility] mg/dL [facility] [...] Address City/State/[place] [address] POCT Glucose (08/14/2017 12:10 PM EST) athologist Signature POC Glucose 141 65 - 199 [place] [facility] mg/dL [facility] [...] Address City/State/ZIP Code Phon e Number [address] POCT Glucose (08/14/2017 8:07 AM EST) P athologist Signature POC Glucose 158 65 - 199 [facility] mg/dL [facility] LABORATORY Comment: Supplemental [...] Address City/State/[place] [address] (ABNORMAL) Differential, Automated (08/14/2017 4:52 AM EST) Patholo gist Method Time Signature Neutrophils % 78.6 % [facility] LABORATORY Neutr Abs (ANC) 7.70 (H) 1.70 - [facility] 6.10 [facility] x10(3)/[facility] L LABORATORY Lymphocytes % 7.8 % [facility] LABORATORY Lymphocytes Abs 0.8 (L) 0.9 - 3.2 [facility] x10(3)/[facility] LABORATORY Monocytes % 8.8 % [facility] LABORATORY Monocyte Abs 0.9 0.3 - 0.9 [facility] x10(3)/[facility] LABORATORY Eosinophils % 4.0 % [facility] LABORATORY Eosinophils Abs 0.4 0.0 - 0.4 [facility] x10(3)/[facility] LABORATORY Basophils % 0.5 % [facility] LABORATORY Basophils Abs 0.0 0.0 - 0.1 [facility] x10(3)/[facility] LABORATORY Immature Gran [...] 0.04 x10(3)/[facility] MAR Y [facility] LABORATORY Specimen Anatomical Collection Method Collection Time Receive d Time (Source) Location / / Volume Laterality Blood specimen 08/14/2017 4:52 AM 018 5:08 (specimen) EST AM EST Resulting Agency Comment Spec In Lab Yonathan Smith MD HEMATOLOGY ORDERABLES Performing Organization Address City/State/[place] [address] (ABNORMAL) Hemogram (08/14/2017 4:52 AM EST) Analysis Performed At Patho logist Time Signature WBC 9.8 (H) 4.0 - 9.5 [facility] x10(3)/[facility] LABORATORY RBC 3.32 (L) 4.58 - [facility] 5.54 [facility] x10(6)/[facility] LABORATORY Hemoglobin 9.5 (L) 13.7 - [facility] 16.5 gm/dL [facility] LABORATORY Hematocrit 30.3 (L) 40.5 - [facility] 48.5 % [facility] LABORATORY MCV 91.3 82.9 - [facility] 93.1 [facility] LABORATORY MCH 28.6 27.5 - [place] [facility] 32.1 pg [facility] LABORATORY MCHC 31.4 (L) 32.0 - [facility] 35.7 gm/dL [facility] LABORATORY Platelets 263 145 - 357 [facility] x10(3)/[facility] LABORATORY RDWSD 54.8 (H) 36.0 - [facility] 45.0 [facility] [place] RDWCV 16.5 (H) 11.4 - [facility] 13.8 % [facility] LABORATORY MPV 9.1 7.6 - 12.9 [facility] LABORATORY nRBC % Auto 0.0 % [facility] LABORATORY nRBC Abs Auto 0.000 0.000 - [facility] 0.000 [facility] x10(3)/[facility] LABORATORY Specimen Anatomical Collection Method Collection Time Receive d Time (Source) Location / / Volume Laterality Blood specimen 08/14/2017 4:52 AM 018 5:08 (specimen) EST AM EST Resulting Agency Comment Spec In Lab Yonathan Smith MD HEMATOLOGY ORDERABLES Performing Organization Address City/[facility]/[place] [address] (ABNORMAL) Prothrombin Time (08/14/2017 [...] Organization Address City/State/[place] [address] (ABNORMAL) Basic Metabolic Panel (non-fasting) (08/14/2017 4:52 AM EST) athologist Signature Glucose Lvl 135 65 - 199 [facility] mg/dL [facility] LABORATORY Comment: Diabetes: [...] CENTER LABORATORY Estimated GFR 52 (L) >=60 [facility] LABORATORY Comment: The reported eGFR should be multiplied b y 1.2 for patients. The MDRD is not an appropriate measure o f renal function for patients with body mass extremes or in patients with acute kidney failure. [email or web address] [email or web address] Specimen Anatomical Collection Method Collection Time Receive d Time (Source) Location / / Volume Laterality Blood specimen 08/14/2017 4:52 AM 018 5:08 (specimen) EST AM EST Resulting Agency Comment Spec In Lab Yonathan Smith MD CHEMISTRY ORDERABLES Performing Organization Address City/State/[place] [address] POCT Glucose (08/14/2017 3:56 AM EST) P athologist Signature POC Glucose 135 65 - 199 [facility] mg/dL [facility]ORAT[facility] Comment: Supplemental [...] Address City/State/ZIP Code [place] [address] POCT Glucose (08/13/2017 11:13 PM EST) athologist Signature POC Glucose 118 65 - 199 [place] mg/dL [facility] LABORAT[facility] Comment: Supplemental ranges: [...] City/[facility]/ZIP Code [place] [address] (ABNORMAL) POCT Glucose (08/13/2017 [...] City/[facility]/ZIP Code [place] [address] POCT Glucose (08/13/2017 4:02 PM EST) athologist Signature POC Glucose 145 65 - 199 [place] mg/dL [facility] LABOR[facility] Comment: Supplemental ranges: <140 mg/dL before meals <180 mg/dL all other times of the day Specimen Anatomical Collection Method Collection Time Receive d Time (Source) Location / / Volume Laterality Blood specimen 08/13/2017 4:02 PM 018 4:02 (specimen) EST PM EST Yonathan Smith MD POINT OF CARE TEST ORDERABLE S Performing Organization Address City/State/[place] [address] POCT Glucose (08/13/2017 11:31 AM EST) P athologist Signature POC Glucose 179 65 - 199 [facility] mg/dL [facility] Comment: Supplemental ranges: <140 mg/dL before meals <180 mg/dL all other times of the day Specimen Anatomical Collection Method Collection Time Receive d Time (Source) Location / / Volume Laterality Blood specimen 08/13/2017 11:31 8 (specimen) AM EST 11:31 AM EST Yonathan Smith MD POINT OF CARE TEST ORDERABLE S Performing Organization Address City/[facility]/[place] [address] (ABNORMAL) POCT Glucose (08/13/2017 10:16 AM EST) athologist Signature POC Glucose 211 (H) 65 - 199 [facility] mg/dL [facility] Comment: Supplemental ranges: <140 mg/dL before meals <180 mg/dL all other times of the day Specimen Anatomical Collection Method Collection Time Receive d Time (Source) Location / / Volume Laterality Blood specimen 08/13/2017 10:16 8 (specimen) AM EST 10:16 AM EST Yonathan Smith MD POINT OF CARE TEST ORDERABLE S Performing Organization Address City/[facility]/ZIP Code Phon e Number [address] JULIAN, legs, multiple levels (08/13/2017 7:42 AM EST) Component Value Ref Test Analysis Performed At Patholo gist Range Method Time Signature VB Text Department: Vascular Surgery Lab VASCUBASE Report Patient: [id number] (GREGORY HOANG) CPT: 84746 ICD10: I99.8 Referring Physician: YONATHAN SMITH ?? Indications: s/p R 1,2,3 toe amps with red left foot, need n ew baseline Diabetes mellitus: yes ICD10 Diagnosis Code: I99.8 Findings: Right ?Pressure (mm Hg) ?? JULIAN ??Waveform ?TBI ?? Brachial Artery ?138 ? Dorsalis Pedis (Ankle) Arter y ?132 ? 0.94 ??Ware- Biphasic ? Posterior Tibial (Ankle) Art anila ??154 ? 1.10 ??Ware-Biphasic ? Fourth Toe ? 67 ? 0.48 [...] 156 65 - 199 [place] mg/dL [facility] LABORATORY Comment: Supplemental ranges: <140 mg/dL before meals <180 mg/dL all other times of the day Specimen Anatomical Collection Method Collection Time Receive d Time (Source) Location / / Volume Laterality Blood specimen 08/13/2017 7:33 AM 018 7:33 (specimen) EST AM EST Yonathan Smith MD POINT OF CARE TEST ORDERABLE S Performing Organization Address City/State/[place] [address] (ABNORMAL) Differential, Automated (08/13/2017 5:33 AM EST) [facility] Method Time Signature Neutrophils % 77.8 % [facility] LABORATORY Neutr Abs (ANC) 7.83 (H) 1.70 - [facility] 6.10 [facility] x10(3)/[facility] L LABORATORY Lymphocytes % 8.4 % [facility] LABORATORY Lymphocytes Abs 0.8 (L) 0.9 - 3.2 [facility] x10(3)/[facility] LABORATORY Monocytes % 8.3 % [facility] LABORATORY Monocyte Abs 0.8 0.3 - 0.9 [facility] x10(3)/[facility] LABORATORY Eosinophils % 4.6 % [facility] LABORATORY Eosinophils Abs 0.5 (H) 0.0 - 0.4 [facility] x10(3)/[facility] LABORATORY Basophils % 0.5 % [facility] LABORATORY Basophils Abs 0.0 0.0 - 0.1 [facility] x10(3)/[facility] LABORATORY Immature Gran [...] 0.04 0.00 - 0.04 x10(3)/mcL MAR Y [facility] LABORATORY Specimen Anatomical Collection Method Collection Time Receive d Time (Source) Location / / Volume Laterality Blood specimen 08/13/2017 5:33 AM 018 6:04 (specimen) EST AM EST Resulting Agency Comment Spec In Lab Yonathan Smith MD HEMATOLOGY ORDERABLES Performing Organization Address City/State/ZIP Code Phon e Number [address] (ABNORMAL) Hemogram (08/13/2017 5:33 AM EST) Analysis Performed At Patho logist Time Signature WBC 10.1 (H) 4.0 - 9.5 [facility] x10(3)/[facility] LABORATORY RBC 3.21 (L) 4.58 - [facility] 5.54 [facility] x10(6)/[facility] LABORATORY Hemoglobin 9.2 (L) 13.7 - [facility] 16.5 gm/dL [facility] LABORATORY Hematocrit 29.6 (L) 40.5 - [facility] 48.5 % [facility] LABORATORY MCV 92.2 82.9 - [facility] 93.1 [facility] LABORATORY MCH 28.7 27.5 - [facility] 32.1 pg [facility] LABORAT[facility] MCHC 31.1 (L) 32.0 - [facility] 35.7 gm/dL [facility]ORATORY Platelets 263 145 - 357 [facility] x10(3)/[facility] LABORATORY RDWSD 54.8 (H) 36.0 - [facility] 45.0 [facility] LABORATORY RDWCV 16.4 (H) 11.4 - [facility] 13.8 % [facility] LABORATORY MPV 9.2 7.6 - 12.9 [facility] LABORATORY nRBC % Auto 0.0 % [facility] LABORATORY nRBC Abs Auto 0.000 0.000 - [facility] 0.000 [facility] x10(3)/[facility] LABORATORY Specimen Anatomical Collection Method Collection Time Receive d Time (Source) Location / / Volume Laterality Blood specimen 08/13/2017 5:33 AM 018 6:04 (specimen) EST AM EST Resulting Agency Comment Spec In Lab Yonathan Smith MD HEMATOLOGY ORDERABLES Performing Organization Address City/State/[place] [address] (ABNORMAL) Prothrombin Time (08/13/2017 [...] City/State/ZIP Code Phon e Number [place] [id number] [address]OS[address] (ABNORMAL) Basic Metabolic Panel (non-fasting) (08/13/2017 5:33 AM EST) athologist Signature Glucose Lvl 126 65 - 199 [facility] mg/dL [facility] Comment: Diabetes: [...] or in patients with acute kidney failure. [email or web address] [email or web address] Specimen Anatomical Collection Method Collection Time Receive d Time (Source) Location / / Volume Laterality Blood specimen 08/13/2017 5:33 AM 018 6:04 (specimen) EST AM EST Resulting Agency Comment Spec In Lab Yonathan Smith MD CHEMISTRY ORDERABLES Performing Organization Address City/[facility]/ZIP [facility] Phon e Number [address] POCT Glucose (08/13/2017 4:29 AM EST) athologist Signature POC Glucose 111 65 - 199 [facility] mg/dL [facility] Comment: Supplemental ranges: <140 mg/dL before meals <180 mg/dL all other times of the day Specimen Anatomical Collection Method Collection Time Receive d Time (Source) Location / / Volume Laterality Blood specimen 08/13/2017 4:29 AM 018 4:29 (specimen) EST AM EST Yonathan Smith MD POINT OF CARE TEST ORDERABLE S Performing Organization Address City/[facility]/ZIP Code Phon e Number [address] POCT Glucose (08/12/2017 11:28 PM EST) athologist Signature POC Glucose 164 65 - [address] [facility] mg/dL [facility] Comment: Supplemental ranges: <140 mg/dL before meals <180 mg/dL all other times of the day Specimen Anatomical Collection Method Collection Time Receive d Time (Source) Location / / Volume Laterality Blood specimen 08/12/2017 11:28 8 (specimen) PM EST 11:28 PM EST Yonathan Smith MD POINT OF CARE TEST ORDERABLE S Performing Organization Address City/[facility]/[place] [address] (ABNORMAL) POCT Glucose (08/12/2017 7:40 PM EST) athologist Signature POC Glucose 209 (H) 65 - [address] [facility] mg/dL [facility]OR[facility] Comment: Supplemental [...] Address City/State/ZIP Code Phon e Number [address] POCT Glucose (08/12/2017 4:24 PM EST) athologist Signature POC Glucose 161 65 - [address] [facility] mg/dL [facility] Comment: Supplemental ranges: <140 mg/dL before meals <180 mg/dL all other times of the day Specimen Anatomical Collection Method Collection Time Receive d Time (Source) Location / / Volume Laterality Blood specimen 08/12/2017 4:24 PM 018 4:24 (specimen) EST PM EST Yonathan Smiht MD POINT OF CARE TEST ORDERABLE S Performing Organization Address City/State/[place] [address] POCT Glucose (08/12/2017 12:00 PM EST) athologist Signature POC Glucose 167 65 - 199 [place] mg/dL [facility] [...] Address City/State/[place] [address] POCT Glucose (08/12/2017 7:25 AM EST) P athologist Signature POC Glucose 152 65 - 199 [facility] mg/dL [facility] Comment: Supplemental ranges: <140 mg/dL before meals <180 mg/dL all other times of the day Specimen Anatomical Collection Method Collection Time Receive d Time (Source) Location / / Volume Laterality Blood specimen 08/12/2017 7:25 AM 018 7:25 (specimen) EST AM EST Yonathan Smith MD POINT OF CARE TEST ORDERABLE S Performing Organization Address City/State/[place] [address] (ABNORMAL) Differential, Automated (08/12/2017 6:29 AM EST) Patholo gist Method Time Signature Neutrophils % 78.7 % [facility] LABORATORY Neutr Abs (ANC) 7.94 (H) 1.70 - [facility] 6.10 [facility] x10(3)/[facility] LABORATORY Lymphocytes % 8.8 % [facility] LABORATORY Lymphocytes Abs 0.9 0.9 - 3.2 [facility] x10(3)/[facility] LABORATORY Monocytes % 7.8 % [facility] LABORATORY Monocyte Abs 0.8 0.3 - 0.9 [facility] x10(3)/[facility] LABORATORY Eosinophils % 3.9 % [facility] LABORATORY Eosinophils Abs 0.4 0.0 - 0.4 [facility] x10(3)/[facility] LABORATORY Basophils % 0.3 % [facility] LABORATORY Basophils Abs 0.0 0.0 - 0.1 [facility] x10(3)/[facility] LABORATORY Immature Gran % 0.50 % [facility] [...] Organization Address City/State/[place] [address] (ABNORMAL) Hemogram (08/12/2017 6:29 AM EST) Analysis Performed At Patho logist Time Signature WBC 10.1 (H) 4.0 - 9.5 [facility] x10(3)/[facility] LABORATORY RBC 3.02 (L) 4.58 - [facility] 5.54 [facility] x10(6)/[facility] LABORATORY Hemoglobin 8.7 (L) 13.7 - [facility] 16.5 gm/dL [facility] Hematocrit 28.1 (L) 40.5 - [facility] 48.5 % [facility]AT[facility] MCV 93.0 82.9 - [facility] 93.1 [facility] LABORATORY MCH 28.8 27.5 - [facility] 32.1 pg [facility]AT[facility] MCHC 31.0 (L) 32.0 - [facility] 35.7 gm/dL [facility] Platelets 223 145 - 357 [facility] x10(3)/[facility] LABORATORY RDWSD 56.1 (H) 36.0 - [facility] 45.0 [facility] LABORATORY RDWCV 16.4 (H) 11.4 - [facility] 13.8 % [facility] LABORATORY MPV 9.0 7.6 - 12.9 [facility] LABORATORY nRBC % Auto 0.0 % [facility] LABORATORY nRBC Abs Auto 0.000 0.000 - [facility] 0.000 [facility] x10(3)/[facility] LABORATORY Specimen Anatomical Collection Method Collection Time Receive d Time (Source) Location / / Volume Laterality Blood specimen 08/12/2017 6:29 AM 018 6:38 (specimen) EST AM EST Resulting Agency Comment Spec In Lab Yonathan Smith MD HEMATOLOGY ORDERABLES Performing Organization Address City/[facility]/[place] [address] (ABNORMAL) Prothrombin Time (08/12/2017 [...] Address City/[facility]/[place] [address] (ABNORMAL) Basic Metabolic Panel (non-fasting) (08/12/2017 6:29 AM EST) athologist Signature Glucose Lvl 151 65 - 199 [facility] mg/dL [facility] Comment: Diabetes: [...] or in patients with acute kidney failure. [email or web address] [email or web address] Specimen Anatomical Collection Method Collection Time Receive d Time (Source) Location / / Volume Laterality Blood specimen 08/12/2017 6:29 AM 018 6:38 (specimen) EST AM EST Resulting Agency Comment Spec In Lab Yonathan Smith MD CHEMISTRY ORDERABLES Performing Organization Address City/[facility]/ZIP Code Phon e Number [address] POCT Glucose (08/12/2017 4:08 AM EST) athologist Signature POC Glucose 181 65 - 199 [facility] Comment: Supplemental ranges: <140 mg/dL before meals <180 mg/dL all other times of the day Specimen Anatomical Collection Method Collection Time Receive d Time (Source) Location / / Volume Laterality Blood specimen 08/12/2017 4:08 AM 018 4:08 (specimen) EST AM EST Yonathan Smith MD POINT OF CARE TEST ORDERABLE S Performing Organization Address City/[facility]/[place] [address] (ABNORMAL) POCT Glucose (08/12/2017 12:17 AM EST) athologist Signature POC Glucose 221 (H) 65 - 199 [facility] [facility] Comment: Supplemental ranges: <140 mg/dL before meals <180 mg/dL all other times of the day Specimen Anatomical Collection Method Collection Time Receive d Time (Source) Location / / Volume Laterality Blood specimen 08/12/2017 12:17 8 (specimen) AM EST 12:17 AM EST Yonathan Smith MD POINT OF CARE TEST ORDERABLE S Performing Organization Address City/State/[place] [address] (ABNORMAL) POCT Glucose (08/11/2017 [...] Address City/[facility]/[place] [address] POCT Glucose (08/11/2017 5:59 PM EST) athologist Signature POC Glucose 169 65 - 199 [place] mg/dL [facility] [...] Address City/State/[place] [address] (ABNORMAL) POCT Glucose (08/11/2017 [...] Address City/State/ZIP Code Phon e Number [address] POCT Glucose (08/11/2017 12:04 PM EST) athologist Signature POC Glucose 182 65 - [address] [facility] [address] mg/dL [facility] Comment: Supplemental ranges: <140 mg/dL before meals <180 mg/dL all other times of the day Specimen Anatomical Collection Method Collection Time Receive d Time (Source) Location / / Volume Laterality Blood specimen 08/11/2017 12:04 8 (specimen) PM EST 12:04 PM EST Yonathan Smith MD POINT OF CARE TEST ORDERABLE S Performing Organization Address City/[facility]/[place] [address] POCT Glucose (08/11/2017 7:31 AM EST) athologist Signature POC Glucose 156 65 - [address] [address] [address] [facility] mg/dL [facility] Comment: Supplemental ranges: <140 mg/dL before meals <180 mg/dL all other times of the day Specimen Anatomical Collection Method Collection Time Receive d Time (Source) Location / / Volume Laterality Blood specimen 08/11/2017 7:31 AM 018 7:31 (specimen) EST AM EST Yonathan Smith MD POINT OF CARE TEST ORDERABLE S Performing Organization Address City/State/ZIP Code Phon e Number [address] (ABNORMAL) Differential, Automated (08/11/2017 6:16 AM EST) [facility] gist Method Time Signature Neutrophils % 83.7 % [facility] LABORATORY Neutr Abs (ANC) 10.76 (H) 1.70 - [facility] 6.10 [facility] x10(3)/[facility] L LABORATORY Lymphocytes % 6.0 % [facility] LABORATORY Lymphocytes Abs 0.8 (L) 0.9 - 3.2 [facility] x10(3)/[facility] LABORATORY Monocytes % 7.5 % [facility] LABORATORY Monocyte Abs 1.0 (H) 0.3 - 0.9 [facility] x10(3)/[facility] LABORATORY Eosinophils % 2.0 % [facility] LABORATORY Eosinophils Abs 0.3 0.0 - 0.4 [facility] x10(3)/[facility] LABORATORY Basophils % 0.3 % [facility] LABORATORY Basophils Abs 0.0 0.0 - 0.1 [facility] x10(3)/[facility] LABORATORY Immature Gran % 0.50 % [facility] [...] Organization Address City/State/[place] [address] (ABNORMAL) Hemogram (08/11/2017 6:16 AM EST) Analysis Performed At Patho logist Time Signature WBC 12.9 (H) 4.0 - 9.5 [facility] x10(3)/[facility] LABORATORY RBC 3.28 (L) 4.58 - [facility] 5.54 [facility] x10(6)/[facility] LABORATORY Hemoglobin 9.5 (L) 13.7 - [facility] 16.5 gm/dL [facility] Hematocrit 29.8 (L) 40.5 - [place] [facility] 48.5 % [facility] MCV 90.9 82.9 - [facility] 93.1 [facility] LABORATORY MCH 29.0 27.5 - [place] 32.1 [facility] LABORATORY MCHC 31.9 (L) 32.0 - [place] 35.7 gm/dL [facility] Platelets 236 145 - 357 [facility] x10(3)/[facility] LABORATORY RDWSD 53.5 (H) 36.0 - [place] [facility] 45.0 [facility] LABORATORY RDWCV 16.3 (H) 11.4 - [facility] 13.8 % [facility] MPV 8.8 7.6 - 12.9 [facility] nRBC % Auto 0.0 % [facility] nRBC Abs Auto 0.000 0.000 - [facility] 0.000 [facility] x10(3)/[facility] LABORATORY Specimen Anatomical Collection Method Collection Time Receive d Time (Source) Location / / Volume Laterality Blood specimen 08/11/2017 6:16 AM 018 6:24 (specimen) EST AM EST Resulting Agency Comment Spec In Lab Yonathan Smith MD HEMATOLOGY ORDERABLES Performing Organization Address City/State/ZIP Code Phon e Number [place] [phone] HOSPITAL LABORATORY Drive (ABNORMAL) Prothrombin Time (08/11/2017 [...] Organization Address City/State/[place] [address] Basic Metabolic Panel (non-fasting) (08/11/2017 6:16 AM EST) P athologist Signature Glucose Lvl 139 65 - 199 [facility] mg/dL [facility] Comment: Diabetes: [...] or in patients with acute kidney failure. [email or web address] [email or web address] Specimen Anatomical Collection Method Collection Time Receive d Time (Source) Location / / Volume Laterality Blood specimen 08/11/2017 6:16 AM 018 6:24 (specimen) EST AM EST Resulting Agency Comment Spec In Lab Yonathan Smith MD CHEMISTRY ORDERABLES Performing Organization Address City/State/ZIP Code Phon e Number [address] POCT Glucose (08/11/2017 4:07 AM EST) athologist Signature POC Glucose 162 65 - 199 [place] mg/dL [facility] Comment: Supplemental ranges: [...] City/[facility]/ZIP Code Phon e Number [place] [address] POCT Glucose (08/10/2017 11:59 PM EST) athologist Signature POC Glucose 166 65 - 199 [place] mg/dL [facility] Comment: Supplemental ranges: [...] City/[facility]/ZIP Code Phon e Number [place] [address] POCT Glucose (08/10/2017 8:12 PM EST) athologist Signature POC Glucose 156 65 - 199 [place] [facility] mg/dL [facility] [...] Address City/State/[place] [address] (ABNORMAL) POCT Glucose (08/10/2017 4:42 PM EST) P athologist Signature POC Glucose 211 (H) 65 - 199 [facility] mg/dL [facility] Comment: Supplemental ranges: <140 mg/dL before meals <180 mg/dL all other times of the day Specimen Anatomical Collection Method Collection Time Receive d Time (Source) Location / / Volume Laterality Blood specimen 08/10/2017 4:42 PM 018 4:42 (specimen) EST PM EST Yonathan Smith MD POINT OF CARE TEST ORDERABLE S Performing Organization Address City/State/ZIP Code Phon e Number [address] (ABNORMAL) Differential, Automated (08/10/2017 2:30 PM EST) Patholo gist Method Time Signature Neutrophils % 87.6 % [facility] LABORATORY Neutr Abs (ANC) 9.90 (H) 1.70 - [facility] 6.10 [facility] x10(3)/[facility] L LABORATORY Lymphocytes % 4.3 % [facility] LABORATORY Lymphocytes Abs 0.5 (L) 0.9 - 3.2 [facility] x10(3)/[facility] LABORATORY Monocytes % 6.0 % [facility] LABORATORY Monocyte Abs 0.7 0.3 - 0.9 [facility] x10(3)/[facility] LABORATORY Eosinophils % 1.1 % [facility] LABORATORY Eosinophils Abs 0.1 0.0 - 0.4 [facility] x10(3)/[facility] LABORATORY Basophils % 0.4 % [facility] LABORATORY Basophils Abs 0.0 0.0 - 0.1 [facility] x10(3)/[facility] LABORATORY Immature Gran % 0.60 % [...] Organization Address City/State/[place] [address] (ABNORMAL) Hemogram (08/10/2017 2:30 PM EST) Analysis Performed At Patho logist Time Signature WBC 11.3 (H) 4.0 - 9.5 [facility] x10(3)/[facility] LABORATORY RBC 3.13 (L) 4.58 - [facility] 5.54 [facility] x10(6)/[facility] LABORATORY Hemoglobin 8.9 (L) 13.7 - [facility] 16.5 gm/dL [facility] Hematocrit 28.4 (L) 40.5 - [facility] 48.5 % [facility] MCV 90.7 82.9 - [facility] 93.1 [facility] LABORATORY MCH 28.4 27.5 - [facility] 32.1 pg [facility] MCHC 31.3 (L) 32.0 - [facility] 35.7 gm/dL [facility] Platelets 213 145 - 357 [facility] x10(3)/[facility] LABORATORY RDWSD 53.7 (H) 36.0 - [facility] 45.0 [facility] LABORATORY RDWCV 16.4 (H) 11.4 - [facility] 13.8 % [facility] MPV 8.9 7.6 - 12.9 [facility] LABORATORY nRBC % Auto 0.0 % [facility] LABORATORY nRBC Abs Auto 0.000 0.000 - [facility] 0.000 [facility] x10(3)/[facility] LABORATORY Specimen Anatomical Collection Method Collection Time Receive d Time (Source) Location / / Volume Laterality Blood specimen 08/10/2017 2:30 PM 018 2:48 (specimen) EST PM EST Resulting Agency Comment Spec In Lab Yonathan Smith MD HEMATOLOGY ORDERABLES Performing Organization Address City/State/[place] [address] (ABNORMAL) POCT Glucose (08/10/2017 1:50 PM EST) athologist Signature POC Glucose 243 (H) 65 - [address] [facility] [address] mg/dL [facility] Comment: Supplemental ranges: <140 mg/dL before meals <180 mg/dL all other times of the day Specimen Anatomical Collection Method Collection Time Receive d Time (Source) Location / / Volume Laterality Blood specimen 08/10/2017 1:50 PM 018 1:50 (specimen) EST PM EST Yonathan Smith MD POINT OF CARE TEST ORDERABLE S Performing Organization Address City/[facility]/[place] [address] POCT Glucose (08/10/2017 11:21 AM EST) athologist Signature POC Glucose 156 65 - [address] [facility] mg/dL [facility] Comment: Supplemental ranges: <140 mg/dL before meals <180 mg/dL all other times of the day Specimen Anatomical Collection Method Collection Time Receive d Time (Source) Location / / Volume Laterality Blood specimen 08/10/2017 11:21 8 (specimen) AM EST 11:21 AM EST Yonathan Smith MD POINT OF CARE TEST ORDERABLE S Performing Organization Address City/State/[place] [address] (ABNORMAL) Differential, Automated (08/10/2017 10:28 AM EST) [facility] gist Method Time Signature Neutrophils % 85.3 % [facility] LABORATORY Neutr Abs (ANC) 9.43 (H) 1.70 - [facility] 6.10 [facility] x10(3)/[facility] L LABORATORY Lymphocytes % 5.5 % [facility] LABORATORY Lymphocytes Abs 0.6 (L) 0.9 - 3.2 [facility] x10(3)/[facility] LABORATORY Monocytes % 5.9 % [facility] LABORATORY Monocyte Abs 0.6 0.3 - 0.9 [facility] x10(3)/[facility] LABORATORY Eosinophils % 2.1 % [facility] LABORATORY Eosinophils Abs 0.2 0.0 - 0.4 [facility] x10(3)/[facility] LABORATORY Basophils % 0.4 % [facility] LABORATORY Basophils Abs 0.0 0.0 - 0.1 [facility] x10(3)/[facility] LABORATORY Immature Gran % 0.80 % [facility] [...] Organization Address City/State/[place] [address] (ABNORMAL) Hemogram (08/10/2017 10:28 AM EST) Analysis Performed At Patho logist Time Signature WBC 11.0 (H) 4.0 - 9.5 [facility] x10(3)/[facility] LABORATORY RBC 3.02 (L) 4.58 - [facility] 5.54 [facility] x10(6)/[facility] LABORATORY Hemoglobin 8.8 (L) 13.7 - [facility] 16.5 gm/dL [facility] Hematocrit 28.1 (L) 40.5 - [place] [facility] 48.5 % [facility] MCV 93.0 82.9 - [facility] 93.1 [facility] LABORATORY MCH 29.1 27.5 - [place] 32.1 pg [facility] MCHC 31.3 (L) 32.0 - [place] [facility] 35.7 gm/dL [facility] Platelets 207 145 - 357 [place] x10(3)/[facility] LABORATORY RDWSD 55.3 (H) 36.0 - [place] 45.0 [facility] LABORATORY RDWCV 16.4 (H) 11.4 - [place] [facility] 13.8 % [facility] MPV 9.0 7.6 - 12.9 [facility] LABORATORY nRBC % Auto 0.0 % [facility] LABORATORY nRBC Abs Auto 0.000 0.000 - [place] [facility] 0.000 [facility] x10(3)/[facility] LABORATORY Specimen Anatomical Collection Method Collection Time Receive d Time (Source) Location / / Volume Laterality Blood specimen 08/10/2017 10:28 8 (specimen) AM EST 10:35 AM EST Resulting Agency Comment Spec In Lab Yonathan Smith MD HEMATOLOGY ORDERABLES Performing Organization Address City/State/ZIP Code Phon e Number [place] [id number] HOSPITAL LABORATORY Drive VS Angiogram/intervention (vascular) (08/10/2017 [...] 2.5x80 5. Completion RLE angiogram 6. L PHILOSOPHY FACULTY angiogram 7. 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 - L PHILOSOPHY FACULTY angriogram demonstrated: High fe moral bifurcation over the proximal half of the femoral head. L PHILOSOPHY FACULTY access in the distal L PHILOSOPHY FACULTY. - Closure device: Mynx Technical Procedure: ?The [...] for a 45cm 5F Destination. V18 and [place] a nd QuickCross catheters were used to [...] bifurcation. Access appeared in the distal R PHILOSOPHY FACULTY. Closure and sheath removal was performed with [...] 2.5x80 5. Completion RLE angiogram 6. L PHILOSOPHY FACULTY angiogram 7. 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 - L PHILOSOPHY FACULTY angriogram demonstrated: High fe moral bifurcation over the proximal half of the femoral head. L PHILOSOPHY FACULTY access in the distal L PHILOSOPHY FACULTY. - Closure device: Mynx Technical Procedure: The [...] for a 45cm 5F Destination. V18 and [place] a nd QuickCross catheters were used to [...] bifurcation. Access appeared in the distal R PHILOSOPHY FACULTY. Closure and sheath removal was performed with [...] (ABNORMAL) Differential, Automated (08/10/2017 5:50 AM EST) [facility] Method Time Signature Neutrophils % 80.1 % [facility] LABORATORY Neutr Abs (ANC) 9.01 (H) 1.70 - [facility] 6.10 [facility] x10(3)/[facility] LABORATORY Lymphocytes % 8.8 % [facility] LABORATORY Lymphocytes Abs 1.0 0.9 - 3.[address] [facility] x10(3)/[facility] LABORATORY Monocytes % 8.3 % [facility] LABORATORY Monocyte Abs 0.9 0.3 - 0.[address] [facility] x10(3)/[facility] LABORATORY Eosinophils % 2.0 % [facility] LABORATORY Eosinophils Abs 0.2 0.0 - 0.4 [facility] x10(3)/[facility] LABORATORY Basophils % 0.4 % [facility] LABORATORY Basophils Abs 0.0 0.0 - 0.1 [facility] x10(3)/[facility] LABORATORY Immature Gran [...] Organization Address City/State/[place] [address] (ABNORMAL) Hemogram (08/10/2017 5:50 AM EST) Analysis Performed At Patho logist Time Signature WBC 11.3 (H) 4.0 - 9.5 [facility] x10(3)/[facility] LABORATORY RBC 3.15 (L) 4.58 - [facility] 5.54 [facility] x10(6)/[facility] LABORATORY Hemoglobin 8.9 (L) 13.7 - [facility] 16.5 gm/dL [facility] Hematocrit 29.0 (L) 40.5 - [facility] 48.5 % [facility] MCV 92.1 82.9 - [facility] 93.1 [facility] LABORATORY MCH 28.3 27.5 - [place] [facility] 32.1 pg [facility] MCHC 30.7 (L) 32.0 - [facility] 35.7 gm/dL [facility] Platelets 231 145 - 357 [facility] x10(3)/[facility] LABORATORY RDWSD 53.9 (H) 36.0 - [place] [facility] 45.0 [facility] LABORATORY RDWCV 16.2 (H) 11.4 - [facility] 13.8 % [facility] MPV 8.7 7.6 - 12.9 [facility] LABORATORY nRBC % Auto 0.0 % [facility] LABORATORY nRBC Abs Auto 0.000 0.000 - [facility] 0.000 [facility] x10(3)/[facility] LABORATORY Specimen Anatomical Collection Method Collection Time Receive d Time (Source) Location / / Volume Laterality Blood specimen 08/10/2017 5:50 AM 018 5:59 (specimen) EST AM EST Resulting Agency Comment Spec In Lab Yonathan Smith MD HEMATOLOGY ORDERABLES Performing Organization Address City/State/[place] [address] (ABNORMAL) Basic Metabolic Panel (non-fasting) (08/10/2017 5:50 AM EST) P athologist Signature Glucose Lvl 135 65 - 199 [facility] mg/dL [facility] Comment: Diabetes: [...] or in patients with acute kidney failure. [email or web address] [email or web address] Specimen Anatomical Collection Method Collection Time Receive d Time (Source) Location / / Volume Laterality Blood specimen 08/10/2017 5:50 AM 018 5:59 (specimen) EST AM EST Resulting Agency Comment Spec In Lab Yonathan Smith MD CHEMISTRY ORDERABLES Performing Organization Address [facility] [place] [address] (ABNORMAL) Prothrombin Time (08/10/2017 [...] MD HEMATOLOGY ORDERABLES Performing Organization Address City/[facility] [place] [address] (ABNORMAL) POCT Glucose (08/10/2017 4:01 AM EST) athologist Signature POC Glucose 206 (H) 65 - 199 [facility] mg/dL [facility] Comment: Supplemental [...] Address City/State/[place] [address] POCT Glucose (08/10/2017 2:01 AM EST) athologist Signature POC Glucose 188 65 - 199 [place] [facility] mg/dL [facility] [...] Address City/[facility]/[place] [address] (ABNORMAL) POCT Glucose (08/09/2017 11:42 PM EST) athologist Signature POC Glucose 283 (H) 65 - [address] [facility] mg/dL [facility] Comment: Supplemental [...] Address City/State/[place] [address] POCT Glucose (08/09/2017 8:55 PM EST) athologist Signature POC Glucose 182 65 - 199 [place] [facility] mg/dL [facility] [...] Address City/[facility]/[place] [address] (ABNORMAL) APTT (08/09/2017 6:42 [...] Address City/[facility]/[place] [address] POCT Glucose (08/09/2017 4:41 PM EST) athologist Signature POC Glucose 195 65 - 199 [facility] mg/dL [facility] Comment: Supplemental ranges: <140 mg/dL before meals <180 mg/dL all other times of the day Specimen Anatomical Collection Method Collection Time Receive d Time (Source) Location / / Volume Laterality Blood specimen 08/09/2017 4:41 PM 018 4:41 (specimen) EST PM EST Yonathan Smith MD POINT OF CARE TEST ORDERABLE S Performing Organization Address City/[facility]/[place] [address] POCT Glucose (08/09/2017 12:29 PM EST) athologist Signature POC Glucose 140 65 - 199 [facility] mg/dL [facility] Comment: Supplemental ranges: <140 mg/dL before meals <180 mg/dL all other times of the day Specimen Anatomical Collection Method Collection Time Receive d Time (Source) Location / / Volume Laterality Blood specimen 08/09/2017 12:29 8 (specimen) PM EST 12:29 PM EST Yonathan Smith MD POINT OF CARE TEST ORDERABLE S Performing Organization Address [facility]/ZIP Code Phon e Number [address] POCT Glucose (08/09/2017 9:59 AM EST) P athologist Signature POC Glucose 135 65 - 199 [facility] mg/dL [facility] Comment: Supplemental ranges: <140 mg/dL before meals <180 mg/dL all other times of the day Specimen Anatomical Collection Method Collection Time Receive d Time (Source) Location / / Volume Laterality Blood specimen 08/09/2017 9:59 AM 018 9:59 (specimen) EST AM EST Yonathan Smith MD POINT OF CARE TEST ORDERABLE S Performing Organization Address [facility]/[place] [address] Specimen to Pathology (08/09/2017 [...] Address City/[facility]/[place] [address] Surgical Pathology Report (08/09/2017 8:40 AM EST) Component Value Ref Test Analysis Performed At Patholo gist Range Method Time Signature Surgical [id number] ? Location: [facility]; Formerly named [facility]; A [facility] Report The signing pathologist has [...] [facility] [place], [place], [place] CLINICAL INFORMATION Specimen Submitted: A - [...] Organization Address City/State/[place] [address] Anaerobic Culture (08/09/2017 8:30 AM EST) [facility] Method Time Signature Anaerobic No anaerobic [place] [facility] Culture organisms [facility] LABORATORY Specimen Anatomical Collection Method [...] GENERAL ORDER ROBSON Performing Organization Address City/[facility]/[place] [address] (ABNORMAL) Abscess/Wound Aspirate Culture (08/09/2017 8:30 AM EST) [facility] [employer] Method Time Signature Abscess/Wound Moderate mixed [facility] Aspirate bacterial [place] Culture morphotypes [facility] normal LABORATORY cutaneous leroy (A) Gram Stain Rare White Blood Cells [place] Few Gram Positive Cocci in pairs [place] () [facility] Organism Gram Positive [place] Cocci in pairs [place] () [facility] Specimen Anatomical Collection Method [...] GENERAL ORDER ROBSON Performing Organization Address City/[facility]/ZIP Code [place] [address] POCT Glucose (08/09/2017 4:28 AM EST) P athologist Signature POC Glucose 128 65 - 199 [facility] mg/dL [facility] Comment: Supplemental ranges: <140 mg/dL before meals <180 mg/dL all other times of the day Specimen Anatomical Collection Method Collection Time Receive d Time (Source) Location / / Volume Laterality Blood specimen 08/09/2017 4:28 AM 018 4:28 (specimen) EST AM EST Yonathan Smith MD POINT OF CARE TEST ORDERABLE S Performing Organization Address City/State/[place] [address] ABORH Recheck Status (08/09/2017 1:10 AM EST) [facility] Method Time Signature ABORH Type Completed [facility] LABORATORY Specimen Anatomical Collection Method Collection Time Receive d Time (Source) Location / / Volume Laterality Blood specimen 08/09/2017 1:10 AM 018 1:35 (specimen) EST AM EST Resulting Agency Comment Spec In Lab Ynoathan Smith MD BLOOD BANK ORDERABLES Performing Organization Address City/State/[place] [address] Antibody screen (08/09/2017 1:10 AM EST) [facility] Method [place] Signature Ab Screen Negative [facility] LABORATORY Expires at 08/12/2017 [facility] [id number] on: [facility] LABORATORY Specimen Anatomical Collection Method Collection Time Receive d Time (Source) Location / / Volume Laterality Blood specimen 08/09/2017 1:10 AM 018 1:35 (specimen) EST AM EST Resulting Agency Comment Spec In Lab Yonathan Smith MD BLOOD BANK ORDERABLES Performing Organization Address City/State/[place] [address] ABO/Rh Typing (08/09/2017 1:10 [...] Address City/State/[place] [address] (ABNORMAL) APTT (08/09/2017 1:10 [...] Organization Address City/State/[place] [address] (ABNORMAL) Differential, Automated (08/09/2017 1:10 AM EST) [facility] Method Time Signature Neutrophils % 76.2 % [facility] LABORATORY Neutr Abs (ANC) 8.59 (H) 1.70 - [facility] 6.10 [facility] x10(3)/[facility] LABORATORY Lymphocytes % 11.0 % [facility] LABORATORY Lymphocytes Abs 1.2 0.9 - 3.2 [facility] x10(3)/[facility] LABORATORY Monocytes % 8.4 % [facility] LABORATORY Monocyte Abs 1.0 (H) 0.3 - 0.9 [facility] x10(3)/[facility] LABORATORY Eosinophils % 3.5 % [facility] LABORATORY Eosinophils Abs 0.4 0.0 - 0.4 [facility] x10(3)/[facility] LABORATORY Basophils % 0.5 % [facility] LABORATORY Basophils Abs 0.1 0.0 - 0.1 [facility] x10(3)/[facility] LABORATORY Immature Gran [...] Organization Address City/State/[place] [address] (ABNORMAL) Hemogram (08/09/2017 1:10 AM EST) Analysis Performed At Patho logist Time Signature WBC 11.3 (H) 4.0 - 9.5 [facility] x10(3)/[facility] LABORATORY RBC 3.47 (L) 4.58 - [facility] 5.54 [facility] x10(6)/[facility] LABORATORY Hemoglobin 10.0 (L) 13.7 - [facility] 16.5 gm/dL [facility] LABORAT[facility] Hematocrit 31.9 (L) 40.5 - [facility] 48.5 % [facility] LABORATORY MCV 91.9 82.9 - [facility] 93.1 [facility] LABORATORY MCH 28.8 27.5 - [facility] 32.1 pg [facility] LAB[facility]AT[facility] MCHC 31.3 (L) 32.0 - [facility] 35.7 gm/dL [facility] Platelets 234 145 - 357 [facility] x10(3)/[facility] LABORATORY RDWSD 54.0 (H) 36.0 - [facility] 45.0 [facility] LABORATORY RDWCV 16.2 (H) 11.4 - [facility] 13.8 % [facility] LABORAT[facility] MPV 8.7 7.6 - 12.9 [facility] LABORATORY nRBC % Auto 0.0 % [facility] LABORATORY nRBC Abs Auto 0.000 0.000 - [facility] 0.000 [facility] x10(3)/[facility] LABORATORY Specimen Anatomical Collection Method Collection Time Receive d Time (Source) Location / / Volume Laterality Blood specimen 08/09/2017 1:10 AM 018 1:19 (specimen) EST AM EST Resulting Agency Comment Spec In Lab Yonathan Smith MD HEMATOLOGY ORDERABLES Performing Organization Address City/[facility]/[place] [address] (ABNORMAL) Prothrombin Time (08/09/2017 [...] Address City/[facility]/[place] [address] (ABNORMAL) Basic Metabolic Panel (non-fasting) (08/09/2017 1:10 AM EST) P athologist Signature Glucose Lvl 108 65 - 199 [facility] mg/dL [facility] Comment: Diabetes: [...] CENTER LABORATORY Estimated GFR 45 (L) >=60 [facility] LABORATORY Comment: The reported eGFR should be multiplied b y 1.2 for patients. The MDRD is not an appropriate measure o f renal function for patients with body mass extremes or in patients with acute kidney failure. http://Cue/DHnkdep http://Cue/DHMCnkf Specimen Anatomical Collection Method Collection Time Receive d Time (Source) Location / / Volume Laterality Blood specimen 08/09/2017 1:10 AM 018 1:19 (specimen) EST AM EST Resulting Agency Comment Spec In Lab Yonathan Smith MD CHEMISTRY ORDERABLES Performing Organization Address City/State/ZIP Code Phon e Number [address] POCT Glucose (08/09/2017 12:05 AM EST) athologist Signature POC Glucose 128 65 - 199 [facility] mg/dL [facility] Comment: Supplemental [...] Address City/[facility]/[place] [address] (ABNORMAL) POCT Glucose (08/08/2017 7:36 PM EST) athologist Signature POC Glucose 215 (H) 65 - 199 [facility] mg/dL [facility] Comment: Supplemental ranges: <140 mg/dL before meals <180 mg/dL all other times of the day Specimen Anatomical Collection Method Collection Time Receive d Time (Source) Location / / Volume Laterality Blood specimen 08/08/2017 7:36 PM 018 7:36 (specimen) EST PM EST Yonathan Smith MD POINT OF CARE TEST ORDERABLE S Performing Organization Address City/State/[place] [address] (ABNORMAL) POCT Glucose (08/08/2017 6:23 PM EST) P athologist Signature POC Glucose 216 (H) 65 - 199 [facility] mg/dL [facility] Comment: Supplemental ranges: <140 mg/dL before meals <180 mg/dL all other times of the day Specimen Anatomical Collection Method Collection Time Receive d Time (Source) Location / / Volume Laterality Blood specimen 08/08/2017 6:23 PM 018 6:23 (specimen) EST PM EST Yonathan Smith MD POINT OF CARE TEST ORDERABLE S Performing Organization Address City/[facility]/[place] [address] (ABNORMAL) APTT (08/08/2017 6:00 [...] Address City/[facility]/[place] [address] POCT Glucose (08/08/2017 4:42 PM EST) athologist Signature POC Glucose 78 65 - [address] [facility] mg/dL [facility] Comment: Supplemental ranges: <140 mg/dL before meals <180 mg/dL all other times of the day Specimen Anatomical Collection Method Collection Time Receive d Time (Source) Location / / Volume Laterality Blood specimen 08/08/2017 4:42 PM 018 4:42 (specimen) EST PM EST Yonathan Smith MD POINT OF CARE TEST ORDERABLE S Performing Organization Address City/State/[place] [address] (ABNORMAL) POCT Glucose (08/08/2017 4:01 PM EST) athologist Signature POC Glucose 58 (L) 65 - [address] [facility] mg/dL [facility] Comment: Supplemental ranges: <140 mg/dL before meals <180 mg/dL all other times of the day Specimen Anatomical Collection Method Collection Time Receive d Time (Source) Location / / Volume Laterality Blood specimen 08/08/2017 4:01 PM 018 4:01 (specimen) EST PM EST Yonathan Smith MD POINT OF CARE TEST ORDERABLE S Performing Organization Address City/State/[place] [address] POCT Glucose (08/08/2017 11:51 AM EST) athologist Signature POC Glucose 90 65 - [address] [facility] mg/dL [facility] Comment: Supplemental ranges: <140 mg/dL before meals <180 mg/dL all other times of the day Specimen Anatomical Collection Method Collection Time Receive d Time (Source) Location / / Volume Laterality Blood specimen 08/08/2017 11:51 8 (specimen) AM EST 11:51 AM EST Yonathan Smith MD POINT OF CARE TEST ORDERABLE S Performing Organization Address City/State/[place] [address] (ABNORMAL) APTT (08/08/2017 10:27 [...] Address City/State/ZIP Code Phon e Number [address] POCT Glucose (08/08/2017 8:02 AM EST) athologist Signature POC Glucose 178 65 - 199 [facility] mg/dL [facility] Comment: Supplemental [...] Address City/[facility]/[place] [address] (ABNORMAL) APTT (08/08/2017 4:51 AM EST) athologist Signature PTT >160 25 - 35 [facility] (Critical) sec [facility] Comment: Called by: HOWARD, Read [...] Organization Address City/State/[place] [address] (ABNORMAL) Differential, Automated (08/08/2017 4:51 AM EST) [facility] gist Method Time Signature Neutrophils % 77.9 % [facility] LABORATORY Neutr Abs (ANC) 8.17 (H) 1.70 - [facility] 6.10 [facility] x10(3)/[facility] LABORATORY Lymphocytes % 10.3 % [facility] LABORATORY Lymphocytes Abs 1.1 0.9 - 3.2 [facility] x10(3)/[facility] LABORATORY Monocytes % 7.0 % [facility] LABORATORY Monocyte Abs 0.7 0.3 - 0.9 [facility] x10(3)/[facility] LABORATORY Eosinophils % 3.6 % [facility] LABORATORY Eosinophils Abs 0.4 0.0 - 0.4 [facility] x10(3)/[facility] LABORATORY Basophils % 0.5 % [facility] LABORATORY Basophils Abs 0.0 0.0 - 0.1 [facility] x10(3)/[facility] LABORATORY Immature Gran % 0.70 % [facility] [...] Address City/State/[place] [address] (ABNORMAL) Hemogram (08/08/2017 4:51 AM EST) Analysis Performed At Patho logist Time Signature WBC 10.5 (H) 4.0 - 9.[address] [facility] x10(3)/[facility] LABORATORY RBC 3.27 (L) 4.58 - [facility] 5.54 [facility] x10(6)/[facility] LABORATORY Hemoglobin 9.3 (L) 13.7 - [facility] 16.5 gm/dL [facility] Hematocrit 30.3 (L) 40.5 - [facility] 48.5 % [facility] MCV 92.7 82.9 - [facility] 93.1 [facility] LABORATORY MCH 28.4 27.5 - [facility] 32.1 pg [facility] MCHC 30.7 (L) 32.0 - [facility] 35.7 gm/dL [facility] Platelets 252 145 - 357 [facility] x10(3)/[facility] LABORATORY RDWSD 54.6 (H) 36.0 - [facility] 45.0 [facility] LABORATORY RDWCV 16.2 (H) 11.4 - [facility] 13.8 % [facility] LABORATORY MPV 9.1 7.6 - 12.9 [facility] LABORATORY nRBC % Auto 0.0 % [facility] LABORATORY nRBC Abs Auto 0.000 0.000 - [facility] 0.000 [facility] x10(3)/[facility] LABORATORY Specimen Anatomical Collection Method Collection Time Receive d Time (Source) Location / / Volume Laterality Blood specimen 08/08/2017 4:51 AM 018 5:14 (specimen) EST AM EST Resulting Agency Comment Spec In Lab Yonathan Smith MD HEMATOLOGY ORDERABLES Performing Organization Address City/State/[place] [address] (ABNORMAL) Prothrombin Time (08/08/2017 [...] Organization Address City/State/[place] [address] (ABNORMAL) Basic Metabolic Panel (non-fasting) (08/08/2017 4:51 AM EST) athologist Signature Glucose Lvl 229 (H) 65 - 199 [facility] mg/dL [facility] Comment: Diabetes: [...] or in patients with acute kidney failure. http://Cue/DHnkdep [email or web address]/DHMCnkf Specimen Anatomical Collection Method Collection Time Receive d Time (Source) Location / / Volume Laterality Blood specimen 08/08/2017 4:51 AM 018 5:14 (specimen) EST AM EST Resulting Agency Comment Spec In Lab Yonathan Smith MD CHEMISTRY ORDERABLES Performing Organization Address City/[facility]/ZIP Code Phon e Number [address] POCT Glucose (08/08/2017 4:20 AM EST) athologist Signature POC Glucose 193 65 - 199 [facility] mg/dL [facility] Comment: Supplemental [...] Address City/State/ZIP Code Phon e Number [address] POCT Glucose (08/07/2017 11:11 PM EST) athologist Signature POC Glucose 124 65 - 199 [facility] Comment: Supplemental ranges: <140 mg/dL before meals <180 mg/dL all other times of the day Specimen Anatomical Collection Method Collection Time Receive d Time (Source) Location / / Volume Laterality Blood specimen 08/07/2017 11:11 8 (specimen) PM EST 11:11 PM EST Yonathan Smith MD POINT OF CARE TEST ORDERABLE S Performing Organization Address City/[facility]/[place] [address] (ABNORMAL) APTT (08/07/2017 10:18 [...] Address City/[facility]/[place] [address] POCT Glucose (08/07/2017 8:10 PM EST) athologist Signature POC Glucose 140 65 - 199 [facility] mg/dL [facility] Comment: Supplemental [...] Address City/[facility]/[place] [address] POCT Glucose (08/07/2017 5:27 PM EST) athologist Signature POC Glucose 187 65 - 199 [facility] mg/dL [facility] Comment: Supplemental ranges: <140 mg/dL before meals <180 mg/dL all other times of the day Specimen Anatomical Collection Method Collection Time Receive d Time (Source) Location / / Volume Laterality Blood specimen 08/07/2017 5:27 PM 018 5:27 (specimen) EST PM EST Yonathan Smith MD POINT OF CARE TEST ORDERABLE S Performing Organization Address City/[facility]/[place] [address] POCT Glucose (08/07/2017 3:29 PM EST) athologist Signature POC Glucose 86 65 - 199 [facility] mg/dL [facility] Comment: Supplemental ranges: <140 mg/dL before meals <180 mg/dL all other times of the day Specimen Anatomical Collection Method Collection Time Receive d Time (Source) Location / / Volume Laterality Blood specimen 08/07/2017 3:29 PM 018 3:29 (specimen) EST PM EST Yonathan Smith MD POINT OF CARE TEST ORDERABLE S Performing Organization Address [facility]/ZIP [facility] [place] [address] (ABNORMAL) APTT (08/07/2017 2:50 [...] HEMATOLOGY ORDERABLES Performing Organization Address City/[facility]/ZIP [facility] Phon e Number [address] (ABNORMAL) POCT Glucose (08/07/2017 2:23 PM EST) athologist Signature POC Glucose 55 (L) 65 - 199 [facility] mg/dL [facility] [...] Address City/State/ZIP Code Phon e Number [address] POCT Glucose (08/07/2017 12:08 PM EST) P athologist Signature POC Glucose 77 65 - 199 [facility] mg/dL [facility] Comment: Supplemental ranges: <140 mg/dL before meals <180 mg/dL all other times of the day Specimen Anatomical Collection Method Collection Time Receive d Time (Source) Location / / Volume Laterality Blood specimen 08/07/2017 12:08 8 (specimen) PM EST 12:08 PM EST Yonathan Smith MD POINT OF CARE TEST ORDERABLE S Performing Organization Address City/State/ZIP Code Phon e Number [address] (ABNORMAL) Differential, Automated (08/07/2017 7:30 AM EST) Patholo gist Method Time Signature Neutrophils % 73.8 % [facility] LABORATORY Neutr Abs (ANC) 7.17 (H) 1.70 - [facility] 6.10 [facility] x10(3)/[facility] LABORATORY Lymphocytes % 12.2 % [facility] LABORATORY Lymphocytes Abs 1.2 0.9 - 3.2 [facility] x10(3)/[facility] LABORATORY Monocytes % 9.0 % [facility] LABORATORY Monocyte Abs 0.9 0.3 - 0.9 [facility] x10(3)/[facility] LABORATORY Eosinophils % 3.9 % [facility] LABORATORY Eosinophils Abs 0.4 0.0 - 0.4 [facility] x10(3)/[facility] LABORATORY Basophils % 0.6 % [facility] LABORATORY Basophils Abs 0.1 0.0 - 0.1 [facility] x10(3)/[facility] LABORATORY Immature Gran % 0.50 % [facility] [...] Organization Address City/State/[place] [address] (ABNORMAL) Hemogram (08/07/2017 7:30 AM EST) Analysis Performed At Patho logist Time Signature WBC 9.7 (H) 4.0 - 9.5 [facility] x10(3)/[facility] LABORATORY RBC 3.54 (L) 4.58 - [facility] 5.54 [facility] x10(6)/[facility] LABORATORY Hemoglobin 9.9 (L) 13.7 - [facility] 16.5 gm/dL [facility] Hematocrit 32.3 (L) 40.5 - [facility] 48.5 % [facility] MCV 91.2 82.9 - [facility] 93.1 [facility] LABORATORY MCH 28.0 27.5 - [facility] 32.1 pg [facility] MCHC 30.7 (L) 32.0 - [facility] 35.7 gm/dL [facility] Platelets 312 145 - 357 [facility] x10(3)/[facility] LABORATORY RDWSD 53.2 (H) 36.0 - [facility] 45.0 [facility] LABORATORY RDWCV 16.0 (H) 11.4 - [facility] 13.8 % [facility]AT[facility] MPV 8.9 7.6 - 12.9 [facility] LABORATORY nRBC % Auto 0.0 % [facility] LABORATORY nRBC Abs Auto 0.000 0.000 - [facility] 0.000 [facility] x10(3)/[facility] LABORATORY Specimen Anatomical Collection Method Collection Time Receive d Time (Source) Location / / Volume Laterality Blood specimen 08/07/2017 7:30 AM 018 7:45 (specimen) EST AM EST Resulting Agency Comment Spec In Lab Yonathan Smith MD HEMATOLOGY ORDERABLES Performing Organization Address City/State/[place] [address] (ABNORMAL) Basic Metabolic Panel (non-fasting) (08/07/2017 7:30 AM EST) P athologist Signature Glucose Lvl 80 65 - 199 [facility] mg/dL [facility] Comment: Diabetes: [...] CENTER LABORATORY Estimated GFR 59 (L) >=60 [facility] LABORATORY Comment: The reported eGFR should be multiplied b y 1.2 for patients. The MDRD is not an appropriate measure o f renal function for patients with body mass extremes or in patients with acute kidney failure. http://Cue/DHnkdep http://Cue/DHMCnkf Specimen Anatomical Collection Method Collection Time Receive d Time (Source) Location / / Volume Laterality Blood specimen 08/07/2017 7:30 AM 018 7:45 (specimen) EST AM EST Resulting Agency Comment Spec In Lab Yonathan Smith MD CHEMISTRY ORDERABLES Performing Organization Address City/[facility] Phon e Number [address] POCT Glucose (08/07/2017 7:27 AM EST) athologist Signature POC Glucose 81 65 - 199 [facility] mg/dL [facility] Comment: Supplemental ranges: <140 mg/dL before meals <180 mg/dL all other times of the day Specimen Anatomical Collection Method Collection Time Receive d Time (Source) Location / / Volume Laterality Blood specimen 08/07/2017 7:27 AM 018 7:27 (specimen) EST AM EST Yonathan Smith MD POINT OF CARE TEST ORDERABLE S Performing Organization Address [facility] Phon e Number [address] APTT (08/07/2017 7:04 AM [...] Address City/[facility]/[place] [address] (ABNORMAL) Prothrombin Time (08/07/2017 [...] Address City/State/[place] [address] POCT Glucose (08/07/2017 4:03 AM EST) athologist Signature POC Glucose 93 65 - 199 [facility] mg/dL [facility] Comment: Supplemental ranges: <140 mg/dL before meals <180 mg/dL all other times of the day Specimen Anatomical Collection Method Collection Time Receive d Time (Source) Location / / Volume Laterality Blood specimen 08/07/2017 4:03 AM 018 4:03 (specimen) EST AM EST Yonathan Smith MD POINT OF CARE TEST ORDERABLE S Performing Organization Address City/State/[place] [address] POCT Glucose (08/07/2017 12:04 AM EST) athologist Signature POC Glucose 107 65 - 199 [facility] mg/dL [facility] Comment: Supplemental ranges: <140 mg/dL before meals <180 mg/dL all other times of the day Specimen Anatomical Collection Method Collection Time Receive d Time (Source) Location / / Volume Laterality Blood specimen 08/07/2017 12:04 8 (specimen) AM EST 12:04 AM EST Yonathan Smith MD POINT OF CARE TEST ORDERABLE S Performing Organization Address City/State/ZIP Code Phon e Number [address] POCT Glucose (08/06/2017 7:56 PM EST) P athologist Signature POC Glucose 178 65 - 199 [facility] mg/dL [facility] Comment: Supplemental [...] Address City/State/ZIP Code Phon e Number [address] TcPO2 (08/06/2017 2:32 PM EST) Component Value Ref Test Analysis Performed At Patholo gist Range Method Time Signature VB Text Department: Vascular Surgery Lab VASCUBASE Report Patient: [id number] (GREGORY HOANG) CPT: 6931643 ICD10: I99.8 Referring Physician: YONATHAN SMITH ?? [...] tablet 40 mg 0825 (Given - Provider: Elisa Mcgrath RN) 08 (Given - Provider: Chiquis [...] 1) 0000 (Not Given - Provider: Henrique Mraks RN - Reason: Order parameters not met)0400 [...] 0454 (Given - P rovider: Henrique Marks RN)0864 (Given - Provider: Chiquis Mcgrath RN)1135 (Given [...]
Routine documented in this encounter Care Teams Bedspread Cutter Relationship Specialty Start Date End Date Lovely Vicente MD PCP - General 04/16/[address] [place] [address] [address] [place] [address] documented as of this encounter
--- OUTSIDE RECORDS SUMMARY | 2022-04-08 08:50 | XMS_ITS | Encounter Summary ---
:1945 Author Organization [facility] [place] [address] Care Team Providers Name Role Phone Lovely Vicente MD Primary Care Provider Reason for Visit Auth/Cert Specialty Diagnoses / Procedures Referred By Contact Refer red To Contact Diagnoses Critical lower limb ischemia CELLULITIS RT FOOT Procedures EMERGENCY Referral ID Status Reason Start Date Expiration Date Visits Requ ested Visits Authorized [id number] 1 1 Encounter Details Date Type Department Care Team Description 08/11/2017 Surgery Main Operating Room Yonathan Smith (M SURG) DRESSING CHANGE Barbara Ocampo MD (FOR OTHER THAN IVAN) [facility] UNDER ANES. 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 [...] Dorsalis Pedis (Ankle) Artery ?132 ? 0.94 ??Loíza-Biphasic ? Posterior Tibial (Ankle) Artery ??154 ? 1.10 ??Loíza-Biphasic ? Fourth Toe ? 67 ?0.48 ?? [...] For any problems or questions please call [phone] ZELDA Smith, crystal calibrator Nurse Clinician For issues on weeknights after 5pm and weekends please call [phone] and ask for the Vascular Fellow director of conservation. General Instructions None Future Appointments and Orders Future Appointments Provider Department Dept Phone 08/26/2017 4:00 PM Aurelia Rivera PA Vascular Surgery at [place] [phone] 09/07/2017 3:00 PM LAB, THREE L Lab 3L [facility] [phone] 09/07/2017 4:00 PM Luz Prescott MD Endocrinology at [place] [phone] 09/09/2017 8:00 AM Barbra Soares APRN Pain Management at [place] [phone] Please bring a list of your current [...] For any problems or questions please call [phone] ZELDA Smith, crystal calibrator Nurse Clinician For issues on weeknights after 5pm and weekends please call [phone] and ask for the Vascular Fellow director of conservation. documented in this encounter Medications at Time [...] Management Discharge Note Patient Destination: [facility] ([facility]) [address] [place] [id number] Transportation: with (at bedside) Time of Discharge: by 12 noon Level of Care: swing Patient Aware: yes Family Notified: yes Md to call report to: Yissel Quintero BRAND REPRESENTATIVE already called RN to call report to: [phone] Shirin Wolf Office of Care Management Pager [phone] Shirin Wagner RN - 08/16/2017 10:50 AM EST [facility] has offered pt swing bed. Pt and accept bed. will transport via car. BRAND REPRESENTATIVE Yissel Quintero aware; d/c paperwork will be completed by 12 noon. [facility] requests pt arrival by 1400 today; BRAND REPRESENTATIVE, RN, and family aware. BRAND REPRESENTATIVE called [facility] and was told that they prefer pt to arrive with wound vac dressing applied but clamped. BRAND REPRESENTATIVE applied new wound vac dressing. RN has [facility] number to call report. PASSR completed; BRAND REPRESENTATIVE paged to request provider signature in highlighted space. Indigo from [facility] notified via email that home wound vac now cancelled; [facility] has picked up from room and order cancelled. Packet started and provided to community administrator. Medicare important message explained to patient, patient signed. Copy provided to patient and signature page to OCM for inclusion in pt EMR. Radha Georges - 08/16/2017 10:34 AM EST Office of Care Management/Assistant Manager Airside Operations Patient Name: Gregory Hoang : 1945 Patient has been offered a swing bed at [facility]. The patient will be transported by private transportation. No MD to MD report necessary Please call Nursing Report to [phone], ask for apartment hotel manager. Info to accompany patient: Narcotic Prescriptions Copies of Medication Administration Records and IV sheets for past 10 days. Plan: Assistant Manager Airside Operations will be available to the patient and Epic Stork Specialists-RN and/or Optometric Coordinator for further assistance. Patient will be discharged to: [facility] [address] [place] [id number] Radha Powers, Assistant Manager Airside Operations Mira Black, VAMSI - 08/15/2017 10:05 PM EST [address] Flores to ask if he wanted to hold metoprolol dose. BP 95/58. OK to hold this dose Courtney Brito - 08/15/2017 3:26 PM EST Office of Care Management(OCM)/Assistant Manager Airside Operations(RS)/ D/C Planning re : Patient is medically [...] status. 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 Vac in place. Rehab [...] patient's referral to: [facility] PHONE: [phone] FAX: [phone] CM spoke with RS who said that [...] rehab. Await recommendations from PT. Covering pager #[phone]. 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 Pharmacist Manager Kaitlin Saha, RN Pager #[phone] Payam Rosales - 08/13/2017 2:37 PM EST Business Continuity Specialist Encounter Note Patient Name: Gregory Hoang : [id number] MR#: [id number] Admit Date: 08/06/2017 1:41 PM Hospital Day 7 days Narrative: Visited to introduce and assess acceptance of Business Continuity Specialist services. Pt was awake, alert, oriented and in chair and family was there. Assessment:Patient coping positively with stresses of illness/hospitalization at this time. Pt says that he is hoping to get better and his family was there. Pt says that he has family care and supportand taking one day at time. Intervention and Outcome: Provided emotional support and encouraging presence. 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 A letter describing our affiliations was reviewed with them and theywere educated about their right to choose where referrals are placed. Patient requests referral to [facility]. PHONE: [phone] FAX: [phone]. And Home NPWT (Negative Pressure Wound Therapy) aka wound vac device made available to pt. Serial # confirmed. Reviewed [facility] Proof of Delivery/Assignment of Benefits Statement(POD/AOB) Form w patient or authorized agent signing on behalf of patient. Copy of POD/AOB provided to pt and other copy faxed to [employer] @ fax# [phone] Expected date of discharge: 08/12/2017. 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 Address: [address] [place] [address] [place] [address] (home) Mobile: Telephone Information: Referring Provider: No [...] by Manny Mcknight MD at [facility] MAIN OR ??? PRO CABG, ARTERIAL, SINGLE N/A 07/07/2017 @CABG, USING ARTERIAL GRAFT;SINGLE ARTERIAL GRAFT (WRVU 33.75) performed by Yuan Retana MD at [facility] MAIN OR ??? PRO CABG, ARTERY-VEIN, TWO N/A 07/07/2017 @CABG, TWO VENOUS GRAFTS & ARTERIAL GRAFT (WRVU 7.93) performed by Yuan Retana MD at [facility] MAIN OR ??? PRO COLONOSCOPY, REMV LESN, SNARE 01/16/2014 COLONOSCOPY, POLYPECTOMY, REMOVAL LESION BY SNARE performed by Nohemi Jaimes MD at [facility] ENDOSCOPY ??? PRO ENDOSCOPY W/VIDEO-ASST VEIN HARVEST, CABG Right 07/07/2017 ENDOSCOPIC HARVEST VEIN(S) FOR CABG (WRVU 0.31) performed by Yuan Retana MD at [facility] MAIN OR ??? 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 Heparin gtt continues to run. [...] of : 1945 AGE 72 y.o. Address: [address] [place] [address] [place] [address] (home) Mobile: Telephone Information: Referring Provider: No [...] by Manny Mcknight MD at [facility] MAIN OR ??? PRO CABG, ARTERIAL, SINGLE N/A 07/07/2017 @CABG, USING ARTERIAL GRAFT;SINGLE ARTERIAL GRAFT (WRVU 33.75) performed by Yuan Retana MD at [facility] MAIN OR ??? PRO CABG, ARTERY-VEIN, TWO N/A 07/07/2017 @CABG, TWO VENOUS GRAFTS & ARTERIAL GRAFT (WRVU 7.93) performed by Yuan Retana MD at [facility] OR ??? PRO COLONOSCOPY, REMV LESN, SNARE 01/16/2014 COLONOSCOPY, POLYPECTOMY, REMOVAL LESION BY SNARE performed by Nohemi Jaimes MD at [facility] ENDOSCOPY ??? PRO ENDOSCOPY W/VIDEO-ASST VEIN HARVEST, CABG Right 07/07/2017 ENDOSCOPIC HARVEST VEIN(S) FOR CABG (WRVU 0.31) performed by Yuan Retana MD at [facility] MAIN OR ??? 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 Vascular resident director of conservation and will forward result to the team prior to rounds. 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 [...] by Manny Mcknight MD at [facility] MAIN OR ??? PRO CABG, ARTERIAL, SINGLE N/A 07/07/2017 @CABG, USING ARTERIAL GRAFT;SINGLE ARTERIAL GRAFT (WRVU 33.75) performed by Yuan Retana MD at [facility] MAIN OR ??? PRO CABG, ARTERY-VEIN, TWO N/A 07/07/2017 @CABG, TWO VENOUS GRAFTS & ARTERIAL GRAFT (WRVU 7.93) performed by Yuan Retana MD at [facility] MAIN OR ??? PRO COLONOSCOPY, REMV LESN, SNARE 01/16/2014 COLONOSCOPY, POLYPECTOMY, REMOVAL LESION BY SNARE performed by Nohemi Jaimes MD at [facility] ENDOSCOPY ??? PRO ENDOSCOPY W/VIDEO-ASST VEIN HARVEST, CABG Right 07/07/2017 ENDOSCOPIC HARVEST VEIN(S) FOR CABG (WRVU 0.31) performed by Yuan Retana MD at [facility] MAIN OR ??? PRO THYROIDECTOMY 03/28/2013 THYROIDECTOMY, TOTAL OR COMPLETE performed by Manny Mcknight MD at [facility] MAIN OR Functional Status/Social Hx: [...] left blue toes with CTA showing R RADIATION ENGINEER pseudoaneurysm (now thrombosed) and occluded ATs [...] 2.5x80 5. Completion RLE angiogram 6. L RADIATION ENGINEER angiogram 7. 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 - L RADIATION ENGINEER angriogram demonstrated: High femoral bifurcation over the proximal half of the femoral head. L RADIATION ENGINEER access in the distal L RADIATION ENGINEER. - Closure device: Mynx Technical Procedure: [...] for a 45cm 5F Destination. V18 and [place] and QuickCross catheters were used to select [...] 5F. A stationed picture of the L RADIATION ENGINEER was performed as the patient was noted to have a very high bifurcation. Access appeared in the distal R RADIATION ENGINEER. Closure and sheath removal was performed [...] PM EST 1440 report called to [place] nurse Tessa AGUSTIN documented in this encounter Miscellaneous Notes Plan of Care - Dory Truong RN - 08/16/2017 10:51 AM EST Problem: Patient Care Overview Goal: Plan of Care Review Outcome: Outcome (s) achieved Date Met: 08/16/17 08/14/17 1939 08/16/17 4371 Coping/Psychosocial Plan Of Care Reviewed With -- [...] sit/sit to supine -- Bed Mobility Goal, H[place] Level independent -- Bed Mobility Goal, Date [...] days -- Transfer Training Goal, Activity Type qaz-en-xtmya/hqviw-oh-dfo -- Transfer Train Goal, [place] Level conditional independence -- Transfer Train Goal, [...] call cabello within reach, Hourly rounding by RN/CAT OPERATOR. Bed alarm / Chair alarm. Patient-specific [...] Operative Note Patient Name: Gregory Hoang : [id number] MR#: [id number] Case Date: 08/09/2017 Surgeon: Surgeon(s) and Role: [...] 2.5x80 5. Completion RLE angiogram 6. L RADIATION ENGINEER angiogram 7. Mynx closure Precautions/Restrictions: fall, [...] other (see comments) (or swing bed) Pager: [phone] BASSAM ELIAS, PT 08/14/2017 Inpatient Physical Therapy [...] to Achieve by discharge Gait Training Goal, [place] Level conditional independence;set up required Gait Training [...] HOSPITAL. CM spoke with [facility] KANWAL Sandhu RN who said that they do not anticipate any beds over the weekend. Reviewed with patient/ that they need to be aware that patient will need to take the first bed offered at the facilities that they make referrals to. Their choices are: 1- [facility] PHONE: [phone] FAX: [phone] 2- [facility] ([facility]) [address] [place] [address] 3- [facility]) [address] [place] [address] I have discussed Medicare/Private Insurance [...] RS/CM on Wednesday to follow-up. Covering pager #[phone] for today. Plan of Care - Henrique [...] with additional findings of pseudoaneurysm on R RADIATION ENGINEER and bilateral anterior tibial artery occlusions. [...] an outpatient once discharged. Have patient call [phone] to set up an appointment. Follow-up: Dermatology will sign-off for now. Please do not hesitate to contact us if you have any questions orconcerns. Impression and Recommendations discussed with primary team on 08/13/2017. Karo Henderson MD Resident in Dermatology Section of Dermatology, Department of Surgery [facility] Pager [phone] Patient seen and evaluated with staff American History Professor: Halima Cordero MD Section of Dermatology [facility] Level of Resident Supervision: Direct Supervision [...] 2.5x80 5. Completion RLE angiogram 6. L RADIATION ENGINEER angiogram 7. Mynx closure Active Non-Hospital [...] home with home health ([facility] PT&OT) Pager: [phone] YASIR TELLO OT 08/12/2017 Occupational Therapy Rehabilitation [...] 2.5x80 5. Completion RLE angiogram 6. L RADIATION ENGINEER angiogram 7. Mynx closure Past Medical [...] with 24/7 assistance and maximal services) Pager: [phone] NICHOLAS MORA, JESSIE 08/12/2017 Physical Therapy Rehabilitation [...] sit/sit to supine -- Bed Mobility Goal, [place] Level independent -- Bed Mobility Goal, Outcome Achieved -- goal ongoing Goal: Gait Training Goal Stand Alone Therapy Goal Outcome: Ongoing (Interventions Implemented as Appropriate) 08/11/17 1310 08/12/17 1510 Gait Training Goal Gait Training Goal, Date Established 08/11/17 -- Gait Training Goal, Time to Achieve 5 - 7 days -- Gait Training Goal, [place] Level conditional independence -- Gait Training Goal, [...] days -- Transfer Training Goal, Activity Type xlo-yr-kqnwv/ljksn-ww-tgr -- Transfer Train Goal, [place] Level conditional independence -- Transfer Training Goal, [...] Operative Note Patient Name: Gregory Hoang : [id number] MR#: [id number] Case Date: 08/11/2017 Surgeon: Surgeon(s) and Role: [...] 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 Completion RLE angiogram 6. L RADIATION ENGINEER angiogram 7. Mynx closure He is [...] Anticipated Discharge Disposition: inpatient rehabilitation facility Pager: [phone] LAWRENCE GONZALEZ, PT 08/11/2017 Physical Therapy Rehabilitation [...] to sit/sit to supine Bed Mobility Goal, [place] Level independent Goal: Gait Training Goal Stand Alone Therapy Goal Outcome: Ongoing (Interventions Implemented as Appropriate) 08/11/17 1310 Gait Training Goal Gait Training Goal, Date Established 08/11/17 Gait Training Goal, Time to Achieve 5 - 7 days Gait Training Goal, [place] Level conditional independence Gait Training Goal, Assist [...] 7 days Transfer Training Goal, Activity Type jtf-nr-xzgej/asmei-yo-sdf Transfer Train Goal, H[place] Level conditional independence Plan of Care - [...] call cabello within reach, Hourly rounding by RN/CAT OPERATOR. Bed alarm / Chair alarm. ? [...] Planning: on file Kisha Hoang [facility] [phone] Current Coping/Education/Information Needs: pt and spouse state [...] Health/Prescription Coverage: Primary Insurance: MEDICARE Secondary Insurance: [place] Prescription Coverage: See above Preferred Pharmacy: [facility] Other: N/A Primary Care Provider: Lovely Vicente MD [phone] Patient/Caregiver Goals of Treatment: Patient plans to return home when medically ready Potential Needs for Transition of Care: Rehab/SNF: N/A Home Health: [facility]. DME: pt has a cane and [...] of care planning. Kaitlin Saha RN Pager: [phone] Plan of Care - Melba Jaramillo RN [...] Overview Goal: Plan of Care Review 08/08/17 2864 Coping/Psychosocial Plan Of Care Reviewed With patient [...] call cabello within reach, Hourly rounding by RN/CAT OPERATOR. Bed alarm / Chair alarm. Patient-specific [...] hrs [ X ] Daily Comments: VAMSI GONZLAEZ present at bedside and MD TEAM Carrying pager [phone] contacted (via Radio page) and notified of [...] Cardiology Zulma Dolan MD [facility] [place], [place] 0[address] (Wo rk) 05/28/2022 Laboratory Appointment Lab 05/28/2022 Office Visit Cardiology Zulma Dolan MD [facility] [place] [address] Liz Poole PA [facility] [place] [address] 06/10/2022 Office Visit Dermatology Laura Scherer MD [facility] DR [address] [place], [place] [address] (Wo rk) documented as of [...] 160 65 - 199 [place] mg/dL [facility] Comment: Supplemental [...] Address City/State/[place] [address] (ABNORMAL) Differential, Automated (08/16/2017 5:08 AM EST) [facility] Method Time Signature Neutrophils % 73.9 % [facility] Neutr Abs (ANC) 5.37 1.70 - [facility] 6.10 [facility] x10(3)/[facility] LABORATORY Lymphocytes % 10.1 % [facility] Lymphocytes Abs 0.7 (L) 0.9 - 3.2 [facility] x10(3)/[facility] LABORATORY Monocytes % 10.1 % [facility] Monocyte Abs 0.7 0.3 - 0.9 [facility] x10(3)/[facility] LABORATORY Eosinophils % 5.1 % [facility] Eosinophils Abs 0.4 0.0 - 0.4 [facility] x10(3)/[facility] LABORATORY Basophils % 0.4 % [facility] Basophils Abs 0.0 0.0 - 0.1 [facility] x10(3)/[facility] [...] - 0.04 x10(3)/[facility] Y [facility] LABORATORY Specimen Anatomical Collection Method Collection Time Receive d Time (Source) Location / / Volume Laterality Blood specimen 08/16/2017 5:08 AM 018 5:20 (specimen) EST AM EST Resulting Agency Comment Spec In Lab Yonathan Smith MD HEMATOLOGY ORDERABLES Performing Organization Address City/State/[place] [address] (ABNORMAL) Hemogram (08/16/2017 5:08 AM EST) Analysis Performed At Patho logist Time Signature WBC 7.3 4.0 - 9.5 [place] x10(3)/[facility] LABORATORY RBC 3.36 (L) 4.58 - [place] 5.54 [facility] x10(6)/[facility] LABORATORY Hemoglobin 9.7 (L) 13.7 - [facility] 16.5 gm/dL [facility] Hematocrit 30.3 (L) 40.5 - [place] 48.5 % [facility] MCV 90.2 82.9 - [facility] 93.1 [facility] LABORATORY MCH 28.9 27.5 - [place] 32.1 pg [facility] MCHC 32.0 32.0 - [place] 35.7 gm/dL [facility] Platelets 282 145 - 357 [facility] x10(3)/[facility] LABORATORY RDWSD 53.9 (H) 36.0 - [place] 45.0 [facility] LABORATORY RDWCV 16.5 (H) 11.4 - [place] 13.8 % [facility] MPV 9.0 7.6 - 12.9 [place] [facility] LABORATORY nRBC % Auto 0.0 % [facility] nRBC Abs Auto 0.000 0.000 - [place] 0.000 [facility] x10(3)/[facility] LABORATORY Specimen Anatomical Collection Method Collection Time Receive d Time (Source) Location / / Volume Laterality Blood specimen 08/16/2017 5:08 AM 018 5:20 (specimen) EST AM EST Resulting Agency Comment Spec In Lab Yonathan Smith MD HEMATOLOGY ORDERABLES Performing Organization Address City/State/ZIP Code Phon e Number [place] [id number] (ABNORMAL) Basic Metabolic Panel (non-fasting) (08/16/2017 5:08 AM EST) P athologist Signature Glucose Lvl 141 65 - 199 [facility] mg/dL [facility] Comment: Diabetes: >=200 mg/dL plus symp toms BUN 29 (H) 10 - 20 mg/dL [facility] Creatinine 1.25 0.80 - 1.50 mg/dL [facility] C[facility] LABORATORY Estimated GFR 57 (L) >=60 [facility] Comment: The reported eGFR should be multiplied b y 1.2 for patients. The MDRD is not an appropriate measure o f renal function for patients with body mass extremes or in patients with acute kidney failure. http://DogSpot/DHnkdep http://DogSpot/DHMCnkf Specimen Anatomical Collection Method Collection Time Receive d Time (Source) Location / / Volume Laterality Blood specimen 08/16/2017 5:08 AM 018 5:20 (specimen) EST AM EST Resulting Agency Comment Spec In Lab Yonathan Smith MD CHEMISTRY ORDERABLES Performing Organization Address City/State/[place] [address] (ABNORMAL) Prothrombin Time (08/16/2017 [...] Smith MD HEMATOLOGY ORDERABLES Performing Organization Address City/[facility]/ZIP Code Phon e Number [id number] [address] POCT Glucose (08/16/2017 4:09 AM EST) athologist Signature POC Glucose 147 65 - 199 [facility] mg/dL [facility] LABORATORY Comment: Supplemental [...] City/[facility]/ZIP Code Phon e Number [address] POCT Glucose (08/15/2017 11:56 PM EST) athologist Signature POC Glucose 176 65 - 199 [facility] LABORATORY Comment: Supplemental [...] City/[facility]/ZIP Code Phon e Number [address] POCT Glucose (08/15/2017 8:05 PM EST) athologist Signature POC Glucose 136 65 - 199 [facility] mg/dL [facility] LABORATORY Comment: Supplemental ranges: <140 mg/dL before meals <180 mg/dL all other times of the day Specimen Anatomical Collection Method Collection Time Receive d Time (Source) Location / / Volume Laterality Blood specimen 08/15/2017 8:05 PM 018 8:05 (specimen) EST PM EST Yonathan Smith MD POINT OF CARE TEST ORDERABLE S Performing Organization Address City/State/[place] [address] (ABNORMAL) POCT Glucose (08/15/2017 4:50 PM EST) athologist Signature POC Glucose 232 (H) 65 - 199 [facility]dL [facility] LABORATORY Comment: Supplemental ranges: <140 mg/dL before meals <180 mg/dL all other times of the day Specimen Anatomical Collection Method Collection Time Receive d Time (Source) Location / / Volume Laterality Blood specimen 08/15/2017 4:50 PM 018 4:50 (specimen) EST PM EST Yonathan Smith MD POINT OF CARE TEST ORDERABLE S Performing Organization Address City/State/[place] [address] POCT Glucose (08/15/2017 12:04 PM EST) athologist Signature POC Glucose 135 65 - 199 [place] mg/dL [facility] LABORATORY Comment: Supplemental ranges: <140 mg/dL before meals <180 mg/dL all other times of the day Specimen Anatomical Collection Method Collection Time Receive d Time (Source) Location / / Volume Laterality Blood specimen 08/15/2017 12:04 8 (specimen) PM EST 12:04 PM EST Yonathan Smith MD POINT OF CARE TEST ORDERABLE S Performing Organization Address City/State/[place] [address] POCT Glucose (08/15/2017 7:36 AM EST) P athologist Signature POC Glucose 124 65 - 199 [facility] mg/dL [facility] LABORATORY Comment: Supplemental [...] Address City/State/[place] [address] (ABNORMAL) Differential, Automated (08/15/2017 6:22 AM EST) Patholo gist Method Time Signature Neutrophils % 76.1 % [facility] LABORATORY Neutr Abs (ANC) 6.62 (H) 1.70 - [facility] 6.10 [facility] x10(3)/[facility] L LABORATORY Lymphocytes % 9.3 % [facility] LABORATORY Lymphocytes Abs 0.8 (L) 0.9 - 3.2 [facility] x10(3)/[facility] LABORATORY Monocytes % 9.4 % [facility] LABORATORY Monocyte Abs 0.8 0.3 - 0.9 [facility] x10(3)/[facility] LABORATORY Eosinophils % 4.0 % [facility] LABORATORY Eosinophils Abs 0.4 0.0 - 0.4 [facility] x10(3)/[facility] LABORATORY Basophils % 0.6 % [facility] LABORATORY Basophils Abs 0.0 0.0 - 0.1 [facility] x10(3)/[facility] LABORATORY Immature Gran % 0.60 % [...] Address City/State/[place] [address] (ABNORMAL) Hemogram (08/15/2017 6:22 AM EST) Analysis Performed At Patho logist Time Signature WBC 8.7 4.0 - 9.5 [facility] x10(3)/[facility] LABORATORY RBC 3.21 (L) 4.58 - [facility] 5.54 [facility] x10(6)/[facility] LABORATORY Hemoglobin 9.1 (L) 13.7 - [facility] 16.5 gm/dL [facility] LABORATORY Hematocrit 29.0 (L) 40.5 - [facility] 48.5 % [facility] LABORATORY MCV 90.3 82.9 - [facility] 93.1 [facility] LABORATORY MCH 28.3 27.5 - [facility] RYAN 32.1 pg [facility] LABORATORY MCHC 31.4 (L) 32.0 - [facility] 35.7 gm/dL [facility] LABORATORY Platelets 254 145 - 357 [facility] x10(3)/[facility] LABORATORY RDWSD 53.9 (H) 36.0 - [facility] RYAN 45.0 [facility] LABORATORY RDWCV 16.3 (H) 11.4 - [facility] RYAN 13.8 % [facility] LABORATORY MPV 8.8 7.6 - 12.9 [facility] LABORATORY nRBC % Auto 0.0 % [facility] LABORATORY nRBC Abs Auto 0.000 0.000 - [place] [facility] 0.000 [facility] x10(3)/[facility] LABORATORY Specimen Anatomical Collection Method Collection Time Receive d Time (Source) Location / / Volume Laterality Blood specimen 08/15/2017 6:22 AM 018 6:33 (specimen) EST AM EST Resulting Agency Comment Spec In Lab Yonathan Smith MD HEMATOLOGY ORDERABLES Performing Organization Address City/State/[place] [address] (ABNORMAL) Basic Metabolic Panel (non-fasting) (08/15/2017 6:22 AM EST) P athologist Signature Glucose Lvl 118 65 - 199 [facility] mg/dL [facility] LABORATORY Comment: Diabetes: [...] or in patients with acute kidney failure. [email or web address] [email or web address] Specimen Anatomical Collection Method Collection Time Receive d Time (Source) Location / / Volume Laterality Blood specimen 08/15/2017 6:22 AM 018 6:33 (specimen) EST AM EST Resulting Agency Comment Spec In Lab Yonathan Smith MD CHEMISTRY ORDERABLES Performing Organization Address City/State/[place] [address] (ABNORMAL) Prothrombin Time (08/15/2017 [...] Smith MD HEMATOLOGY ORDERABLES Performing Organization Address City/[facility]/[place] [address] POCT Glucose (08/15/2017 4:33 AM EST) athologist Signature POC Glucose 164 65 - 199 [facility] mg/dL [facility] LABORATORY Comment: Supplemental ranges: <140 mg/dL before meals <180 mg/dL all other times of the day Specimen Anatomical Collection Method Collection Time Receive d Time (Source) Location / / Volume Laterality Blood specimen 08/15/2017 4:33 AM 018 4:33 (specimen) EST AM EST Yonathan Smith MD POINT OF CARE TEST ORDERABLE S Performing Organization Address City/State/[place] [address] POCT Glucose (08/15/2017 12:12 AM EST) athologist Signature POC Glucose 89 65 - 199 [facility]dL [facility] LABORATORY Comment: Supplemental ranges: <140 mg/dL before meals <180 mg/dL all other times of the day Specimen Anatomical Collection Method Collection Time Receive d Time (Source) Location / / Volume Laterality Blood specimen 08/15/2017 12:12 8 (specimen) AM EST 12:12 AM EST Yonathan Smith MD POINT OF CARE TEST ORDERABLE S Performing Organization Address City/State/[place] [address] (ABNORMAL) POCT Glucose (08/14/2017 8:07 PM EST) athologist Signature POC Glucose 204 (H) 65 - 199 [facility] mg/dL [facility] LABORATORY Comment: Supplemental ranges: <140 mg/dL before meals <180 mg/dL all other times of the day Specimen Anatomical Collection Method Collection Time Receive d Time (Source) Location / / Volume Laterality Blood specimen 08/14/2017 8:07 PM 018 8:07 (specimen) EST PM EST Yonathan Smith MD POINT OF CARE TEST ORDERABLE S Performing Organization Address City/State/[place] [address] POCT Glucose (08/14/2017 5:11 PM EST) athologist Signature POC Glucose 174 65 - 199 [facility] mg/dL [facility] LABORATORY Comment: Supplemental ranges: <140 mg/dL before meals <180 mg/dL all other times of the day Specimen Anatomical Collection Method Collection Time Receive d Time (Source) Location / / Volume Laterality Blood specimen 08/14/2017 5:11 PM 018 5:11 (specimen) EST PM EST Yonathan Smith MD POINT OF CARE TEST ORDERABLE S Performing Organization Address City/State/[place] [address] POCT Glucose (08/14/2017 12:10 PM EST) athologist Signature POC Glucose 141 65 - 199 [facility] mg/dL [facility] LABORATORY Comment: Supplemental ranges: <140 mg/dL before meals <180 mg/dL all other times of the day Specimen Anatomical Collection Method Collection Time Receive d Time (Source) Location / / Volume Laterality Blood specimen 08/14/2017 12:10 8 (specimen) PM EST 12:10 PM EST Yonathan Smith MD POINT OF CARE TEST ORDERABLE S Performing Organization Address City/State/[place] [address] POCT Glucose (08/14/2017 8:07 AM EST) P athologist Signature POC Glucose 158 65 - 199 [facility] mg/dL [facility] LABORATORY Comment: Supplemental ranges: <140 mg/dL before meals <180 mg/dL all other times of the day Specimen Anatomical Collection Method Collection Time Receive d Time (Source) Location / / Volume Laterality Blood specimen 08/14/2017 8:07 AM 018 8:07 (specimen) EST AM EST Yonathan Smith MD POINT OF CARE TEST ORDERABLE S Performing Organization Address City/State/[place] [address] (ABNORMAL) Differential, Automated (08/14/2017 4:52 AM EST) Patholo gist Method Time Signature Neutrophils % 78.6 % [facility] LABORATORY Neutr Abs (ANC) 7.70 (H) 1.70 - [facility] 6.10 [facility] x10(3)/[facility] L LABORATORY Lymphocytes % 7.8 % [facility] LABORATORY Lymphocytes Abs 0.8 (L) 0.9 - 3.2 [facility] x10(3)/[facility] LABORATORY Monocytes % 8.8 % [facility] LABORATORY Monocyte Abs 0.9 0.3 - 0.9 [facility] x10(3)/[facility] LABORATORY Eosinophils % 4.0 % [facility] LABORATORY Eosinophils Abs 0.4 0.0 - 0.4 [facility] x10(3)/[facility] LABORATORY Basophils % 0.5 % [facility] LABORATORY Basophils Abs 0.0 0.0 - 0.1 [facility] x10(3)/[facility] LABORATORY Immature Gran % 0.30 [...] Gran Abs 0.03 0.00 - 0.04 x10(3)/[facility] MAR Y [facility] LABORATORY Specimen Anatomical Collection Method Collection Time Receive d Time (Source) Location / / Volume Laterality Blood specimen 08/14/2017 4:52 AM 018 5:08 (specimen) EST AM EST Resulting Agency Comment Spec In Lab Yonathan Smith MD HEMATOLOGY ORDERABLES Performing Organization Address City/State/[place] [address] (ABNORMAL) Hemogram (08/14/2017 4:52 AM EST) Analysis Performed At Patho logist Time Signature WBC 9.8 (H) 4.0 - 9.5 [facility] x10(3)/[facility] LABORATORY RBC 3.32 (L) 4.58 - [facility] 5.54 [facility] x10(6)/[facility] LABORATORY Hemoglobin 9.5 (L) 13.7 - [facility] 16.5 gm/dL [facility] LABORATORY Hematocrit 30.3 (L) 40.5 - [facility] 48.5 % [facility] LABORATORY MCV 91.3 82.9 - [facility] 93.1 [facility] LABORATORY MCH 28.6 27.5 - [facility] RYAN 32.1 pg [facility] LABORATORY MCHC 31.4 (L) 32.0 - [facility] 35.7 gm/dL [facility] LABORATORY Platelets 263 145 - 357 [facility] x10(3)/[facility] LABORATORY RDWSD 54.8 (H) 36.0 - [place] [facility] 45.0 [facility] LABORATORY RDWCV 16.5 (H) 11.4 - [facility] 13.8 % [facility] LABORATORY MPV 9.1 7.6 - 12.9 [facility] LABORATORY nRBC % Auto 0.0 % [facility] LABORATORY nRBC Abs Auto 0.000 0.000 - [facility] 0.000 [facility] x10(3)/[facility] LABORATORY Specimen Anatomical Collection Method Collection Time Receive d Time (Source) Location / / Volume Laterality Blood specimen 08/14/2017 4:52 AM 018 5:08 (specimen) EST AM EST Resulting Agency Comment Spec In Lab Yonathan Smith MD HEMATOLOGY ORDERABLES Performing Organization Address City/State/[place] [address] (ABNORMAL) Prothrombin Time (08/14/2017 [...] Address City/State/[place] [address] (ABNORMAL) Basic Metabolic Panel (non-fasting) (08/14/2017 4:52 AM EST) P athologist Signature Glucose Lvl 135 65 - 199 [facility] mg/dL [facility] LABORATORY Comment: Diabetes: >=200 mg/dL plus symp toms BUN 25 (H) 10 - 20 mg/dL [facility] LABORATORY Creatinine 1.36 0.80 - 1.50 mg/dL [facility] CENTER LABORATORY Estimated GFR 52 (L) >=60 [facility] LABORATORY Comment: The reported eGFR should be multiplied b y 1.2 for patients. The MDRD is not an appropriate measure o f renal function for patients with body mass extremes or in patients with acute kidney failure. [email or web address] [email or web address] Specimen Anatomical Collection Method Collection Time Receive d Time (Source) Location / / Volume Laterality Blood specimen 08/14/2017 4:52 AM 018 5:08 (specimen) EST AM EST Resulting Agency Comment Spec In Lab Yonathan Smith MD CHEMISTRY ORDERABLES Performing Organization Address City/State/[place] [address] POCT Glucose (08/14/2017 3:56 AM EST) P athologist Signature POC Glucose 135 65 - 199 [facility] mg/dL [facility] LABORATORY Comment: Supplemental [...] Address City/State/ZIP Code Phon e Number [address] POCT Glucose (08/13/2017 11:13 PM EST) athologist Signature POC Glucose 118 65 - 199 [facility] mg/dL [facility] LABORATORY Comment: Supplemental [...] City/[facility]/[place] [address] (ABNORMAL) POCT Glucose (08/13/2017 8:08 PM EST) athologist Signature POC Glucose 204 (H) 65 - 199 [facility] mg/dL [facility] LABORATORY Comment: Supplemental ranges: <140 mg/dL before meals <180 mg/dL all other times of the day Specimen Anatomical Collection Method Collection Time Receive d Time (Source) Location / / Volume Laterality Blood specimen 08/13/2017 8:08 PM 018 8:08 (specimen) EST PM EST Yonathan Smith MD POINT OF CARE TEST ORDERABLE S Performing Organization Address City/State/[place] [address] POCT Glucose (08/13/2017 4:02 PM EST) athologist Signature POC Glucose 145 65 - 199 [facility] mg/dL [facility] LABORATORY Comment: Supplemental ranges: <140 mg/dL before meals <180 mg/dL all other times of the day Specimen Anatomical Collection Method Collection Time Receive d Time (Source) Location / / Volume Laterality Blood specimen 08/13/2017 4:02 PM 018 4:02 (specimen) EST PM EST Yonathan Smith MD POINT OF CARE TEST ORDERABLE S Performing Organization Address City/State/[place] [address] POCT Glucose (08/13/2017 11:31 AM EST) athologist Signature POC Glucose 179 65 - 199 [facility] mg/dL [facility] LABORATORY Comment: Supplemental [...] City/[facility]/[place] [address] (ABNORMAL) POCT Glucose (08/13/2017 10:16 AM EST) athologist Signature POC Glucose 211 (H) 65 - 199 [facility] mg/dL [facility] LABORATORY Comment: Supplemental [...] City/[facility]/[place] [address] JULIAN, legs, multiple levels (08/13/2017 7:42 AM EST) Component Value Ref Test Analysis Performed At Patholo gist Range Method Time Signature VB Text Department: Vascular Surgery Lab VASCUBASE Report Patient: [id number] (GREGORY HOANG) CPT: 18044 ICD10: I99.8 Referring Physician: YONATHAN SMITH ?? Indications: s/p R 1,2,3 toe amps with red left foot, need n ew baseline Diabetes mellitus: yes ICD10 Diagnosis Code: I99.8 Findings: Right ?Pressure (mm Hg) ?? JULIAN ??Waveform ?TBI ?? Brachial Artery ?138 ? Dorsalis Pedis (Ankle) Arter y ?132 ? 0.94 ??Loíza- Biphasic ? Posterior Tibial (Ankle) Art anila ??154 ? 1.10 ??Loíza-Biphasic ? Fourth Toe ? 67 ? 0.48 [...] Glucose 156 65 - 199 [facility] mg/dL [facility] LABORATORY Comment: Supplemental [...] City/State/ZIP Code Phon e Number [place] [id number] Drive (ABNORMAL) Differential, Automated (08/13/2017 5:33 AM EST) [facility] Method Time Signature Neutrophils % 77.8 % [facility] LABORATORY Neutr Abs (ANC) 7.83 (H) 1.70 - [facility] 6.10 [facility] x10(3)/[facility] L LABORATORY Lymphocytes % 8.4 % [facility] LABORATORY Lymphocytes Abs 0.8 (L) 0.9 - 3.2 [facility] x10(3)/[facility] LABORATORY Monocytes % 8.3 % [facility] LABORATORY Monocyte Abs 0.8 0.3 - 0.9 [facility] x10(3)/[facility] LABORATORY Eosinophils % 4.6 % [facility] LABORATORY Eosinophils Abs 0.5 (H) 0.0 - 0.4 [facility] x10(3)/[facility] LABORATORY Basophils % 0.5 % [facility] LABORATORY Basophils Abs 0.0 0.0 - 0.1 [facility] x10(3)/[facility] LABORATORY Immature Gran % 0.40 [...] 0.04 0.00 - 0.04 x10(3)/mcL MAR Y [facility] LABORATORY Specimen Anatomical Collection Method Collection Time Receive d Time (Source) Location / / Volume Laterality Blood specimen 08/13/2017 5:33 AM 018 6:04 (specimen) EST AM EST Resulting Agency Comment Spec In Lab Yonathan Smith MD HEMATOLOGY ORDERABLES Performing Organization Address City/State/[place] [address] (ABNORMAL) Hemogram (08/13/2017 5:33 AM EST) Analysis Performed At Patho logist Time Signature WBC 10.1 (H) 4.0 - 9.5 [facility] x10(3)/[facility] LABORATORY RBC 3.21 (L) 4.58 - [facility] 5.54 [facility] x10(6)/[facility] LABORATORY Hemoglobin 9.2 (L) 13.7 - [facility] 16.5 gm/dL [facility] LABORATORY Hematocrit 29.6 (L) 40.5 - [facility] 48.5 % [facility] LABORATORY MCV 92.2 82.9 - [facility] 93.1 [facility] LABORATORY MCH 28.7 27.5 - [facility] 32.1 pg [facility] LABORATORY MCHC 31.1 (L) 32.0 - [facility] 35.7 gm/dL [facility] LABORATORY Platelets 263 145 - 357 [facility] x10(3)/[facility] LABORATORY RDWSD 54.8 (H) 36.0 - [facility] 45.0 [facility] LABORATORY RDWCV 16.4 (H) 11.4 - [facility] 13.8 % [facility] LABORATORY MPV 9.2 7.6 - 12.9 [facility] LABORATORY nRBC % Auto 0.0 % [facility] LABORATORY nRBC Abs Auto 0.000 0.000 - [facility] 0.000 [facility] x10(3)/[facility] LABORATORY Specimen Anatomical Collection Method Collection Time Receive d Time (Source) Location / / Volume Laterality Blood specimen 08/13/2017 5:33 AM 018 6:04 (specimen) EST AM EST Resulting Agency Comment Spec In Lab Yonathan Smith MD HEMATOLOGY ORDERABLES Performing Organization Address City/State/[place] [address] (ABNORMAL) Prothrombin Time (08/13/2017 [...] Address City/State/[place] [address] (ABNORMAL) Basic Metabolic Panel (non-fasting) (08/13/2017 5:33 AM EST) athologist Signature Glucose Lvl 126 65 - 199 [facility] mg/dL [facility] LABORATORY Comment: Diabetes: >=200 mg/dL plus symp toms BUN 18 10 - 20 mg/dL [facility] LABORATORY Creatinine 1.16 0.80 - 1.50 mg/dL [facility] LABORATORY Estimated GFR >60 >=60 [facility] LABORATORY Comment: The reported eGFR should be multiplied b y 1.2 for patients. The MDRD is not an appropriate measure o f renal function for patients with body mass extremes or in patients with acute kidney failure. [email or web address] [email or web address] Specimen Anatomical Collection Method Collection Time Receive d Time (Source) Location / / Volume Laterality Blood specimen 08/13/2017 5:33 AM 018 6:04 (specimen) EST AM EST Resulting Agency Comment Spec In Lab Yonathan Smith MD CHEMISTRY ORDERABLES Performing Organization Address City/[facility]/ZIP Code Phon e Number [address] POCT Glucose (08/13/2017 4:29 AM EST) athologist Signature POC Glucose 111 65 - 199 [facility] mg/dL [facility] LABORATORY Comment: Supplemental [...] City/[facility]/ZIP Code Phon e Number [address] POCT Glucose (08/12/2017 11:28 PM EST) athologist Signature POC Glucose 164 65 - 199 [facility] mg/dL [facility] LABORATORY Comment: Supplemental [...] City/[facility]/[place] [address] (ABNORMAL) POCT Glucose (08/12/2017 7:40 PM EST) athologist Signature POC Glucose 209 (H) 65 - 199 [facility] mg/dL [facility] LABORATORY Comment: Supplemental [...] Address City/State/ZIP Code Phon e Number [address] POCT Glucose (08/12/2017 4:24 PM EST) athologist Signature POC Glucose 161 65 - 199 [facility] R[facility]AN mg/dL [facility] LABORATORY Comment: Supplemental ranges: <140 mg/dL before meals <180 mg/dL all other times of the day Specimen Anatomical Collection Method Collection Time Receive d Time (Source) Location / / Volume Laterality Blood specimen 08/12/2017 4:24 PM 018 4:24 (specimen) EST PM EST Yonathan Smith MD POINT OF CARE TEST ORDERABLE S Performing Organization Address City/State/[place] [address] POCT Glucose (08/12/2017 12:00 PM EST) athologist Signature POC Glucose 167 65 - 199 BARBARA ZHAORYAN mg/dL [facility] Comment: Supplemental ranges: <140 mg/dL before meals <180 mg/dL all other times of the day Specimen Anatomical Collection Method Collection Time Receive d Time (Source) Location / / Volume Laterality Blood specimen 08/12/2017 12:00 8 (specimen) PM EST 12:00 PM EST Yonathan Smith MD POINT OF CARE TEST ORDERABLE S Performing Organization Address City/State/[place] [address] POCT Glucose (08/12/2017 7:25 AM EST) P athologist Signature POC Glucose 152 65 - 199 [facility] mg/dL [facility] Comment: Supplemental [...] City/State/ZIP Code Phon e Number [place] [id number] (ABNORMAL) Differential, Automated (08/12/2017 6:29 AM EST) Patholo gist Method Time Signature Neutrophils % 78.7 % [facility] Neutr Abs (ANC) 7.94 (H) 1.70 - [facility] 6.10 [facility] x10(3)/[facility] LABORATORY Lymphocytes % 8.8 % [facility] Lymphocytes Abs 0.9 0.9 - 3.2 [facility] x10(3)/[facility] LABORATORY Monocytes % 7.8 % [facility] Monocyte Abs 0.8 0.3 - 0.9 [facility] x10(3)/[facility] LABORATORY Eosinophils % 3.9 % [facility] Eosinophils Abs 0.4 0.0 - 0.4 [facility] x10(3)/[facility] LABORATORY Basophils % 0.3 % [facility] Basophils Abs 0.0 0.0 - 0.1 [facility] x10(3)/[facility] LABORATORY Immature Gran % 0.50 % [...] Address City/State/[place] [address] (ABNORMAL) Hemogram (08/12/2017 6:29 AM EST) Analysis Performed At Patho logist Time Signature WBC 10.1 (H) 4.0 - 9.5 [facility] x10(3)/[facility] LABORATORY RBC 3.02 (L) 4.58 - [facility] 5.54 [facility] x10(6)/[facility] LABORATORY Hemoglobin 8.7 (L) 13.7 - [facility] 16.5 gm/dL [facility] Hematocrit 28.1 (L) 40.5 - [facility] 48.5 % [facility] MCV 93.0 82.9 - [facility] 93.1 [facility] LABORATORY MCH 28.8 27.5 - [facility] 32.1 pg [facility] MCHC 31.0 (L) 32.0 - [facility] 35.7 gm/dL [facility] Platelets 223 145 - 357 [facility] x10(3)/[facility] LABORATORY RDWSD 56.1 (H) 36.0 - [facility] RYAN 45.0 [facility] LABORATORY RDWCV 16.4 (H) 11.4 - [facility] R[facility]AN 13.8 % [facility] MPV 9.0 7.6 - 12.9 [facility] LABORATORY nRBC % Auto 0.0 % [facility] nRBC Abs Auto 0.000 0.000 - [facility] RYAN 0.000 [facility] x10(3)/[facility] LABORATORY Specimen Anatomical Collection Method Collection Time Receive d Time (Source) Location / / Volume Laterality Blood specimen 08/12/2017 6:29 AM 018 6:38 (specimen) EST AM EST Resulting Agency Comment Spec In Lab Yonathan Smith MD HEMATOLOGY ORDERABLES Performing Organization Address City/[facility]/[place] [address] (ABNORMAL) Prothrombin Time (08/12/2017 [...] Organization Address City/State/[place] [address] (ABNORMAL) Basic Metabolic Panel (non-fasting) (08/12/2017 6:29 AM EST) athologist Signature Glucose Lvl 151 65 - 199 [facility] mg/dL [facility] Comment: Diabetes: >=200 mg/dL plus symp toms BUN 18 10 - 20 mg/dL [facility] Creatinine 1.11 0.80 - 1.50 mg/dL [facility] [...] or in patients with acute kidney failure. [email or web address] Specimen Anatomical Collection Method Collection Time Receive d Time (Source) Location / / Volume Laterality Blood specimen 08/12/2017 6:29 AM 018 6:38 (specimen) EST AM EST Resulting Agency Comment Spec In Lab Yonathan Smith MD CHEMISTRY ORDERABLES Performing Organization Address City/[facility]/[place] [address] POCT Glucose (08/12/2017 4:08 AM EST) athologist Signature POC Glucose 181 65 - 199 [facility] mg/dL [facility] Comment: Supplemental [...] City/[facility]/[place] [address] (ABNORMAL) POCT Glucose (08/12/2017 12:17 AM EST) athologist Signature POC Glucose 221 (H) 65 - 199 [facility] mg/dL [facility] Comment: Supplemental [...] City/[facility]/[place] [address] (ABNORMAL) POCT Glucose (08/11/2017 8:52 PM EST) athologist Signature POC Glucose 221 (H) 65 - 199 [facility]BAR[facility] RYAN mg/dL [facility] Comment: Supplemental [...] City/[facility]/[place] [address] POCT Glucose (08/11/2017 5:59 PM EST) athologist Signature POC Glucose 169 65 - 199 [facility] RYAN mg/dL [facility] Comment: Supplemental ranges: <140 mg/dL before meals <180 mg/dL all other times of the day Specimen Anatomical Collection Method Collection Time Receive d Time (Source) Location / / Volume Laterality Blood specimen 08/11/2017 5:59 PM 018 5:59 (specimen) EST PM EST Yonathan Smith MD POINT OF CARE TEST ORDERABLE S Performing Organization Address City/State/[place] [address] (ABNORMAL) POCT Glucose (08/11/2017 4:08 PM EST) athologist Signature POC Glucose 240 (H) 65 - 199 [facility] RYAN mg/dL [facility] Comment: Supplemental [...] City/[facility]/ZIP Code Phon e Number [address] POCT Glucose (08/11/2017 12:04 PM EST) athologist Signature POC Glucose 182 65 - 199 [facility] Comment: Supplemental [...] City/[facility]/ZIP Code Phon e Number [address] POCT Glucose (08/11/2017 7:31 AM EST) athologist Signature POC Glucose 156 65 - 199 [facility] Comment: Supplemental [...] City/[facility]/ZIP Code Phon e Number [address] (ABNORMAL) Differential, Automated (08/11/2017 6:16 AM EST) [facility] Time Signature Neutrophils % 83.7 % [facility] Neutr Abs (ANC) 10.76 (H) 1.70 - [facility] 6.10 [facility] x10(3)/[facility] LABORATORY Lymphocytes % 6.0 % [facility] Lymphocytes Abs 0.8 (L) 0.9 - 3.2 [facility] x10(3)/[facility] LABORATORY Monocytes % 7.5 % [facility] Monocyte Abs 1.0 (H) 0.3 - 0.9 [facility] x10(3)/[facility] LABORATORY Eosinophils % 2.0 % [facility] Eosinophils Abs 0.3 0.0 - 0.4 [facility] x10(3)/[facility] LABORATORY Basophils % 0.3 % [facility] Basophils Abs 0.0 0.0 - 0.1 [facility] x10(3)/[facility] LABORATORY Immature Gran % 0.50 % [...] Address City/State/[place] [address] (ABNORMAL) Hemogram (08/11/2017 6:16 AM EST) Analysis Performed At Patho logist Time Signature WBC 12.9 (H) 4.0 - 9.5 [facility] x10(3)/[facility] LABORATORY RBC 3.28 (L) 4.58 - [facility] 5.54 [facility] x10(6)/[facility] LABORATORY Hemoglobin 9.5 (L) 13.7 - [facility] RYAN 16.5 gm/dL [facility] Hematocrit 29.8 (L) 40.5 - [facility]BAR[facility] DAVIS 48.5 % [facility] MCV 90.9 82.9 - [facility] 93.1 [facility] LABORATORY MCH 29.0 27.5 - BARBARA OLIVASCK 32.1 pg [facility] MCHC 31.9 (L) 32.0 - [facility]BAR[facility] DAVIS 35.7 gm/dL [facility] Platelets 236 145 - 357 [facility] x10(3)/[facility] LABORATORY RDWSD 53.5 (H) 36.0 - BARBAR[facility] DAVIS 45.0 [facility] LABORATORY RDWCV 16.3 (H) 11.4 - [facility] 13.8 % [facility] MPV 8.8 7.6 - 12.9 [facility] LABORATORY nRBC % Auto 0.0 % [facility] nRBC Abs Auto 0.000 0.000 - [facility] 0.000 [facility] x10(3)/[facility] LABORATORY Specimen Anatomical Collection Method Collection Time Receive d Time (Source) Location / / Volume Laterality Blood specimen 08/11/2017 6:16 AM 018 6:24 (specimen) EST AM EST Resulting Agency Comment Spec In Lab Yonathan Smith MD HEMATOLOGY ORDERABLES Performing Organization Address City/State/[place] [address] (ABNORMAL) Prothrombin Time (08/11/2017 [...] Address City/State/[place] [address] Basic Metabolic Panel (non-fasting) (08/11/2017 6:16 AM EST) P athologist Signature Glucose Lvl 139 65 - 199 [facility] mg/dL [facility] Comment: Diabetes: >=200 mg/dL plus symp toms BUN 12 10 - 20 mg/dL [facility]ORATORY Creatinine 0.91 0.80 - 1.50 mg/dL [facility] [...] or in patients with acute kidney failure. [email or web address] Specimen Anatomical Collection Method Collection Time Receive d Time (Source) Location / / Volume Laterality Blood specimen 08/11/2017 6:16 AM 018 6:24 (specimen) EST AM EST Resulting Agency Comment Spec In Lab Yonathan Smith MD CHEMISTRY ORDERABLES Performing Organization Address City/State/ZIP Code Phon e Number [address] POCT Glucose (08/11/2017 4:07 AM EST) athologist Signature POC Glucose 162 65 - 199 BARBAR[facility] RYAN mg/dL [facility] Comment: Supplemental [...] City/[facility]/ZIP Code Phon e Number [address] POCT Glucose (08/10/2017 11:59 PM EST) athologist Signature POC Glucose 166 65 - 199 BARBAR[facility] RYAN mg/dL [facility] Comment: Supplemental [...] Address City/State/ZIP Code Phon e Number [address] POCT Glucose (08/10/2017 8:12 PM EST) athologist Signature POC Glucose 156 65 - 199 [facility]BAR[facility] RYAN mg/dL [facility] Comment: Supplemental [...] City/State/ZIP Code Phon e Number [place] [id number]OS[address] Drive (ABNORMAL) POCT Glucose (08/10/2017 4:42 PM EST) P athologist Signature POC Glucose 211 (H) 65 - 199 [facility] mg/dL [facility] Comment: Supplemental [...] Address City/State/ZIP Code Phon e Number [address] (ABNORMAL) Differential, Automated (08/10/2017 2:30 PM EST) Patholo gist Method Time Signature Neutrophils % 87.6 % [facility] Neutr Abs (ANC) 9.90 (H) 1.70 - [facility] 6.10 [facility] x10(3)/[facility] L LABORATORY Lymphocytes % 4.3 % [facility] Lymphocytes Abs 0.5 (L) 0.9 - 3.2 [facility] x10(3)/[facility] LABORATORY Monocytes % 6.0 % [facility] Monocyte Abs 0.7 0.3 - 0.9 [facility] x10(3)/[facility] LABORATORY Eosinophils % 1.1 % [facility] Eosinophils Abs 0.1 0.0 - 0.4 [facility] x10(3)/[facility] LABORATORY Basophils % 0.4 % [facility] Basophils Abs 0.0 0.0 - 0.1 [facility] x10(3)/[facility] LABORATORY Immature Gran % 0.60 % [...] Address City/State/[place] [address] (ABNORMAL) Hemogram (08/10/2017 2:30 PM EST) Analysis Performed At Patho logist Time Signature WBC 11.3 (H) 4.0 - 9.5 [facility] x10(3)/[facility] LABORATORY RBC 3.13 (L) 4.58 - [facility] 5.54 [facility] x10(6)/[facility] LABORATORY Hemoglobin 8.9 (L) 13.7 - [facility] 16.[facility] gm/dL [facility] Hematocrit 28.4 (L) 40.5 - [facility] 48.5 % [facility] MCV 90.7 82.9 - [facility] 93.1 [facility] LABORATORY MCH 28.4 27.5 - [facility] 32.1 pg [facility] MCHC 31.3 (L) 32.0 - [facility] 35.7 gm/dL [facility] Platelets 213 145 - 357 [facility] x10(3)/[facility] LABORATORY RDWSD 53.7 (H) 36.0 - [facility] R[facility] 45.0 [facility] LABORATORY RDWCV 16.4 (H) 11.4 - [facility] 13.8 % [facility] MPV 8.9 7.6 - 12.9 [facility] LABORATORY nRBC % Auto 0.0 % [facility] nRBC Abs Auto 0.000 0.000 - [facility] 0.000 [facility] x10(3)/[facility] LABORATORY Specimen Anatomical Collection Method Collection Time Receive d Time (Source) Location / / Volume Laterality Blood specimen 08/10/2017 2:30 PM 018 2:48 (specimen) EST PM EST Resulting Agency Comment Spec In Lab Yonathan Smith MD HEMATOLOGY ORDERABLES Performing Organization Address City/[facility]/ZIP Code Phon e Number [address] (ABNORMAL) POCT Glucose (08/10/2017 1:50 PM EST) athologist Signature POC Glucose 243 (H) 65 - 199 [facility] mg/dL [facility] Comment: Supplemental [...] City/[facility]/ZIP Code Phon e Number [address] POCT Glucose (08/10/2017 11:21 AM EST) athologist Signature POC Glucose 156 65 - 199 [facility] mg/dL [facility] Comment: Supplemental [...] City/[facility]/ZIP Code Phon e Number [address] (ABNORMAL) Differential, Automated (08/10/2017 10:28 AM EST) [facility] Method Time Signature Neutrophils % 85.3 % [facility] Neutr Abs (ANC) 9.43 (H) 1.70 - [facility] 6.10 [facility] x10(3)/[facility] L LABORATORY Lymphocytes % 5.5 % [facility] Lymphocytes Abs 0.6 (L) 0.9 - 3.2 [facility] x10(3)/[facility] LABORATORY Monocytes % 5.9 % [facility] Monocyte Abs 0.6 0.3 - 0.9 [facility] x10(3)/[facility] LABORATORY Eosinophils % 2.1 % [facility] Eosinophils Abs 0.2 0.0 - 0.4 [facility] x10(3)/[facility] LABORATORY Basophils % 0.4 % [facility] Basophils Abs 0.0 0.0 - 0.1 [facility] x10(3)/[facility] LABORATORY Immature Gran % 0.80 % [...] Address City/State/[place] [address] (ABNORMAL) Hemogram (08/10/2017 10:28 AM EST) Analysis Performed At Patho logist Time Signature WBC 11.0 (H) 4.0 - 9.5 [facility] x10(3)/[facility] LABORATORY RBC 3.02 (L) 4.58 - [facility] 5.54 [facility] x10(6)/[facility] LABORATORY Hemoglobin 8.8 (L) 13.7 - [facility] 16.5 gm/dL [facility] Hematocrit 28.1 (L) 40.5 - [facility] DAVIS 48.5 % [facility] MCV 93.0 82.9 - [facility] DAVIS 93.1 [facility] LABORATORY MCH 29.1 27.5 - [facility]BAR[facility] OLIVASCK 32.1 pg [facility] MCHC 31.3 (L) 32.0 - [facility] DAVIS 35.7 gm/dL [facility] Platelets 207 145 - 357 [facility] ZHAORYAN x10(3)/[facility] LABORATORY RDWSD 55.3 (H) 36.0 - [facility] DAVIS 45.0 [facility] LABORATORY RDWCV 16.4 (H) 11.4 - [facility] RYAN 13.8 % [facility] MPV 9.0 7.6 - 12.9 [facility] LABORATORY nRBC % Auto 0.0 % [facility] nRBC Abs Auto 0.000 0.000 - [facility]BAR[facility] DAVIS 0.000 [facility] x10(3)/[facility] LABORATORY Specimen Anatomical Collection Method Collection Time Receive d Time (Source) Location / / Volume Laterality Blood specimen 08/10/2017 10:28 8 (specimen) AM EST 10:35 AM EST Resulting Agency Comment Spec In Lab Yonathan Smith MD HEMATOLOGY ORDERABLES Performing Organization Address City/State/[place] [address] VS Angiogram/intervention (vascular) (08/10/2017 [...] 2.5x80 5. Completion RLE angiogram 6. L RADIATION ENGINEER angiogram 7. 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 L RADIATION ENGINEER access in the distal L RADIATION ENGINEER. - Closure device: Mynx Technical Procedure: [...] for a 45cm 5F Destination. V18 and [place] a nd QuickCross catheters were used to [...] bifurcation. Access appeared in the distal R RADIATION ENGINEER. Closure and sheath removal was performed [...] 2.5x80 5. Completion RLE angiogram 6. L RADIATION ENGINEER angiogram 7. 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 L RADIATION ENGINEER access in the distal L RADIATION ENGINEER. - Closure device: Mynx Technical Procedure: [...] for a 45cm 5F Destination. V18 and [place] a nd QuickCross catheters were used to [...] bifurcation. Access appeared in the distal R RADIATION ENGINEER. Closure and sheath removal was performed [...] (ABNORMAL) Differential, Automated (08/10/2017 5:50 AM EST) [facility] Method Time Signature Neutrophils % 80.1 % [facility]ORY Neutr Abs (ANC) 9.01 (H) 1.70 - [facility] 6.10 [facility] x10(3)/[facility] LABORATORY Lymphocytes % 8.8 % [facility] Lymphocytes Abs 1.0 0.9 - 3.2 [facility] x10(3)/[facility] LABORATORY Monocytes % 8.3 % [facility] Monocyte Abs 0.9 0.3 - 0.9 [facility] x10(3)/[facility] LABORATORY Eosinophils % 2.0 % [facility] Eosinophils Abs 0.2 0.0 - 0.4 [facility] x10(3)/[facility] LABORATORY Basophils % 0.4 % [facility] Basophils Abs 0.0 0.0 - 0.1 [facility] x10(3)/[facility] LABORATORY Immature Gran % 0.40 [...] Organization Address City/State/[place] [address] (ABNORMAL) Hemogram (08/10/2017 5:50 AM EST) Analysis Performed At Patho logist Time Signature WBC 11.3 (H) 4.0 - 9.5 [facility] x10(3)/[facility] LABORATORY RBC 3.15 (L) 4.58 - [facility] RYAN 5.54 [facility] x10(6)/[facility] LABORATORY Hemoglobin 8.9 (L) 13.7 - [facility] 16.5 gm/dL [facility] Hematocrit 29.0 (L) 40.5 - [facility] RYAN 48.5 % [facility] MCV 92.1 82.9 - [facility] 93.1 [facility] LABORATORY MCH 28.3 27.5 - [facility] 32.1 pg [facility] MCHC 30.7 (L) 32.0 - [facility] 35.7 gm/dL [facility] Platelets 231 145 - 357 [facility] x[facility](3)/[facility] RDWSD 53.9 (H) 36.0 - [facility] R[facility] 45.0 [facility] LABORATORY RDWCV 16.2 (H) 11.4 - [facility] RYAN 13.8 % [facility] MPV 8.7 7.6 - 12.9 [facility] LABORATORY nRBC % Auto 0.0 % [facility] nRBC Abs Auto 0.000 0.000 - [facility] 0.000 [facility] x10(3)/[facility] LABORATORY Specimen Anatomical Collection Method Collection Time Receive d Time (Source) Location / / Volume Laterality Blood specimen 08/10/2017 5:50 AM 018 5:59 (specimen) EST AM EST Resulting Agency Comment Spec In Lab Yonathan Smith MD HEMATOLOGY ORDERABLES Performing Organization Address City/State/[place] [address] (ABNORMAL) Basic Metabolic Panel (non-fasting) (08/10/2017 5:50 AM EST) P athologist Signature Glucose Lvl 135 65 - 199 [facility] mg/dL [facility] Comment: Diabetes: >=200 mg/dL plus symp toms BUN 17 10 - 20 mg/dL [facility] LABORATORY Creatinine 1.05 0.80 - 1.50 mg/dL [facility] [...] or in patients with acute kidney failure. [email or web address] Specimen Anatomical Collection Method Collection Time Receive d Time (Source) Location / / Volume Laterality Blood specimen 08/10/2017 5:50 AM 018 5:59 (specimen) EST AM EST Resulting Agency Comment Spec In Lab Yonathan Smith MD CHEMISTRY ORDERABLES Performing Organization Address [facility] [facility] [place] [address] (ABNORMAL) Prothrombin Time (08/10/2017 [...] Smith MD HEMATOLOGY ORDERABLES Performing Organization Address City/[facility] [place] [address] (ABNORMAL) POCT Glucose (08/10/2017 4:01 AM EST) athologist Signature POC Glucose 206 (H) 65 - 199 [facility] mg/dL [facility] LABORATORY Comment: Supplemental [...] Address City/State/ZIP Code Phon e Number [address] POCT Glucose (08/10/2017 2:01 AM EST) athologist Signature POC Glucose 188 65 - 199 [place] mg/dL [facility] LABORATORY Comment: Supplemental [...] City/[facility]/[place] [address] (ABNORMAL) POCT Glucose (08/09/2017 11:42 PM EST) athologist Signature POC Glucose 283 (H) 65 - 199 [place] mg/dL [facility] LABORATORY Comment: Supplemental ranges: <140 mg/dL before meals <180 mg/dL all other times of the day Specimen Anatomical Collection Method Collection Time Receive d Time (Source) Location / / Volume Laterality Blood specimen 08/09/2017 11:42 8 (specimen) PM EST 11:42 PM EST Yonathan Smith MD POINT OF CARE TEST ORDERABLE S Performing Organization Address City/State/[place] [address] POCT Glucose (08/09/2017 8:55 PM EST) athologist Signature POC Glucose 182 65 - 199 [place] mg/dL [facility] LABORATORY Comment: Supplemental [...] City/[facility]/[place] [address] (ABNORMAL) APTT (08/09/2017 6:42 [...] Smith MD HEMATOLOGY ORDERABLES Performing Organization Address City/[facility]/[place] [address] POCT Glucose (08/09/2017 4:41 PM EST) athologist Signature POC Glucose 195 65 - 199 [facility] Comment: Supplemental [...] City/[facility]/[place] [address] POCT Glucose (08/09/2017 12:29 PM EST) athologist Signature POC Glucose 140 65 - 199 [facility] mg/dL [facility] Comment: Supplemental ranges: <140 mg/dL before meals <180 mg/dL all other times of the day Specimen Anatomical Collection Method Collection Time Receive d Time (Source) Location / / Volume Laterality Blood specimen 08/09/2017 12:29 8 (specimen) PM EST 12:29 PM EST Yonathan Smith MD POINT OF CARE TEST ORDERABLE S Performing Organization Address [facility]/ZIP Code Phon e Number [address] POCT Glucose (08/09/2017 9:59 AM EST) P athologist Signature POC Glucose 135 65 - 199 [facility] mg/dL [facility]OR[facility] Comment: Supplemental ranges: <140 mg/dL before meals <180 mg/dL all other times of the day Specimen Anatomical Collection Method Collection Time Receive d Time (Source) Location / / Volume Laterality Blood specimen 08/09/2017 9:59 AM 018 9:59 (specimen) EST AM EST Yonathan Smith MD POINT OF CARE TEST ORDERABLE S Performing Organization Address [facility]/ZIP Code Phon e Number [address] Specimen to Pathology (08/09/2017 8:41 AM EST) Specimen Anatomical Collection Method Collection Time Receive d Time (Source) Location / / Volume Laterality AP Specimen 08/09/2017 8:41 AM 8 8:41 EST AM EST Narrative [facility]ORAT ORY - 08/09/2017 8:41 AM EST Specimen requisition ordered. ??Separate Pathology report to follow Yonathan Smith MD PATHOLOGY/CYTOLOGY ORDERABLE S Performing Organization Address City/[facility]/[place] [address] Surgical Pathology Report (08/09/2017 8:40 AM EST) Component Value Ref Test Analysis Performed At Patholo gist Range Method Time Signature Surgical [id number] ? Location: [facility]; [facility]; A [facility] Report The signing pathologist has (i) [...] Henrique Flower Verified: ??08/13/2017 ?Pathologist Performed at: ??-[facility] Dept. of Pathology, [place], [place] CLINICAL INFORMATION Specimen Submitted: A - [...] Address City/State/[place] [address] Anaerobic Culture (08/09/2017 8:30 AM EST) [facility] [employer] Method Time Signature Anaerobic No anaerobic [facility] Culture organisms [facility] [...] - GENERAL ORDER ROBSON Performing Organization Address City/[facility]/[place] [address] (ABNORMAL) Abscess/Wound Aspirate Culture (08/09/2017 8:30 AM EST) [facility] Method Time Signature Abscess/Wound Moderate mixed [facility] Aspirate bacterial [place] Culture morphotypes [facility] normal LABORATORY cutaneous leroy (A) Gram Stain Rare White Blood Cells [place] Few Gram Positive Cocci in pairs [place] () [facility] Organism Gram Positive [place] Cocci in pairs [place] () [facility] Specimen Anatomical Collection [...] - GENERAL ORDER ROBSON Performing Organization Address City/[facility]/ZIP Code Phon e Number [place] [id number] POCT Glucose (08/09/2017 4:28 AM EST) P athologist Signature POC Glucose 128 65 - 199 [facility] mg/dL [facility] Comment: Supplemental ranges: <140 mg/dL before meals <180 mg/dL all other times of the day Specimen Anatomical Collection Method Collection Time Receive d Time (Source) Location / / Volume Laterality Blood specimen 08/09/2017 4:28 AM 018 4:28 (specimen) EST AM EST Yonathan Smith MD POINT OF CARE TEST ORDERABLE S Performing Organization Address City/State/[place] [address] ABORH Recheck Status (08/09/2017 1:10 AM EST) [facility] Method Time Signature ABORH Type Completed [facility] LABORATORY Specimen Anatomical Collection Method Collection Time Receive d Time (Source) Location / / Volume Laterality Blood specimen 08/09/2017 1:10 AM 018 1:35 (specimen) EST AM EST Resulting Agency Comment Spec In Lab Yonathan Smith MD BLOOD BANK ORDERABLES Performing Organization Address City/[facility]/[place] [address] Antibody screen (08/09/2017 1:10 AM EST) [facility] Method Time Signature Ab Screen Negative [facility] LABORATORY Expires at 08/12/2017 [facility] [id number] on: [facility] LABORATORY Specimen Anatomical Collection Method Collection Time Receive d Time (Source) Location / / Volume Laterality Blood specimen 08/09/2017 1:10 AM 018 1:35 (specimen) EST AM EST Resulting Agency Comment Spec In Lab Yonathan Smith MD BLOOD BANK ORDERABLES Performing Organization Address City/[facility]/[place] [address] ABO/Rh Typing (08/09/2017 1:10 AM EST) P athologist Signature ABORh Type O Pos [facility] LABORATORY Specimen Anatomical Collection Method Collection Time Receive d Time (Source) Location / / Volume Laterality Blood specimen 08/09/2017 1:10 AM 018 1:35 (specimen) EST AM EST Resulting Agency Comment Spec In Lab Yonathan Smith MD BLOOD BANK ORDERABLES Performing Organization Address City/[facility]/[place] [address] (ABNORMAL) APTT (08/09/2017 1:10 [...] Address City/State/[place] [address] (ABNORMAL) Differential, Automated (08/09/2017 1:10 AM EST) [facility] gist Method Time Signature Neutrophils % 76.2 % [facility] LABORATORY Neutr Abs (ANC) 8.59 (H) 1.70 - [facility] 6.10 [facility] x10(3)/[facility] LABORATORY Lymphocytes % 11.0 % [facility] LABORATORY Lymphocytes Abs 1.2 0.9 - 3.2 [facility] x10(3)/[facility] LABORATORY Monocytes % 8.4 % [facility] LABORATORY Monocyte Abs 1.0 (H) 0.3 - 0.9 [facility] x10(3)/[facility] LABORATORY Eosinophils % 3.5 % [facility] LABORATORY Eosinophils Abs 0.4 0.0 - 0.4 [facility] x10(3)/[facility] LABORATORY Basophils % 0.5 % [facility] LABORATORY Basophils Abs 0.1 0.0 - 0.1 [facility] x10(3)/[facility] LABORATORY Immature Gran % 0.40 [...] Address City/State/[place] [address] (ABNORMAL) Hemogram (08/09/2017 1:10 AM EST) Analysis Performed At Patho logist Time Signature WBC 11.3 (H) 4.0 - 9.5 [facility] x10(3)/[facility] LABORATORY RBC 3.47 (L) 4.58 - [facility] 5.54 [facility] x10(6)/[facility] LABORATORY Hemoglobin 10.0 (L) 13.7 - [facility] 16.5 gm/dL [facility] LABORATORY Hematocrit 31.9 (L) 40.5 - [facility] 48.5 % [facility]ORATORY MCV 91.9 82.9 - [facility] 93.1 [facility] LABORATORY MCH 28.8 27.5 - [facility] RYAN 32.1 pg [facility] LABORATORY MCHC 31.3 (L) 32.0 - [facility] 35.7 gm/dL [facility] LABORATORY Platelets 234 145 - 357 [facility] x10(3)/[facility] LABORATORY RDWSD 54.0 (H) 36.0 - [facility] RYAN 45.0 [facility] LABORATORY RDWCV 16.2 (H) 11.4 - [facility] 13.8 % [facility] LABORATORY MPV 8.7 7.6 - 12.9 [facility] LABORATORY nRBC % Auto 0.0 % [facility] LABORATORY nRBC Abs Auto 0.000 0.000 - [place] 0.000 [facility] x10(3)/[facility] LABORATORY Specimen Anatomical Collection Method Collection Time Receive d Time (Source) Location / / Volume Laterality Blood specimen 08/09/2017 1:10 AM 018 1:19 (specimen) EST AM EST Resulting Agency Comment Spec In Lab Yonathan Smith MD HEMATOLOGY ORDERABLES Performing Organization Address [facility] [place] [address] (ABNORMAL) Prothrombin Time (08/09/2017 [...] Smith MD HEMATOLOGY ORDERABLES Performing Organization Address [facility] [place] [address] (ABNORMAL) Basic Metabolic Panel (non-fasting) (08/09/2017 1:10 AM EST) athologist Signature Glucose Lvl 108 65 - 199 [facility] mg/dL [facility] LABORATORY Comment: Diabetes: >=200 mg/dL plus symp toms BUN 34 (H) 10 - 20 mg/dL [facility] LABORATORY Creatinine 1.54 (H) 0.80 - 1.50 mg/dL [facility] C[facility] LABORATORY Estimated GFR 45 (L) >=60 [facility] LABORATORY Comment: The reported eGFR should be multiplied b y 1.2 for patients. The MDRD is not an appropriate measure o f renal function for patients with body mass extremes or in patients with acute kidney failure. http://DogSpot/DHnkdep http://DogSpot/DHMCnkf Specimen Anatomical Collection Method Collection Time Receive d Time (Source) Location / / Volume Laterality Blood specimen 08/09/2017 1:10 AM 018 1:19 (specimen) EST AM EST Resulting Agency Comment Spec In Lab Yonathan Smith MD CHEMISTRY ORDERABLES Performing Organization Address City/State/ZIP Code Phon e Number [address] POCT Glucose (08/09/2017 12:05 AM EST) athologist Signature POC Glucose 128 65 - 199 [facility] mg/dL [facility] LABORATORY Comment: Supplemental ranges: <140 mg/dL before meals <180 mg/dL all other times of the day Specimen Anatomical Collection Method Collection Time Receive d Time (Source) Location / / Volume Laterality Blood specimen 08/09/2017 12:05 8 (specimen) AM EST 12:05 AM EST Yonathan Smith MD POINT OF CARE TEST ORDERABLE S Performing Organization Address City/State/[place] [address] (ABNORMAL) POCT Glucose (08/08/2017 7:36 PM EST) athologist Signature POC Glucose 215 (H) 65 - 199 [facility] LABORATORY Comment: Supplemental [...] City/[facility]/[place] [address] (ABNORMAL) POCT Glucose (08/08/2017 6:23 PM EST) athologist Signature POC Glucose 216 (H) 65 - 199 [facility] mg/dL [facility] LABORATORY Comment: Supplemental [...] City/[facility]/[place] [address] (ABNORMAL) APTT (08/08/2017 6:00 [...] Smith MD HEMATOLOGY ORDERABLES Performing Organization Address City/[facility]/ZIP Code Phon [place] [address] POCT Glucose (08/08/2017 4:42 PM EST) athologist Signature POC Glucose 78 65 - 199 [facility] mg/dL [facility] Comment: Supplemental ranges: <140 mg/dL before meals <180 mg/dL all other times of the day Specimen Anatomical Collection Method Collection Time Receive d Time (Source) Location / / Volume Laterality Blood specimen 08/08/2017 4:42 PM 018 4:42 (specimen) EST PM EST Yonathan Smith MD POINT OF CARE TEST ORDERABLE S Performing Organization Address City/State/[place] [address] (ABNORMAL) POCT Glucose (08/08/2017 4:01 PM EST) athologist Signature POC Glucose 58 (L) 65 - 199 [facility] mg/dL [facility] Comment: Supplemental ranges: <140 mg/dL before meals <180 mg/dL all other times of the day Specimen Anatomical Collection Method Collection Time Receive d Time (Source) Location / / Volume Laterality Blood specimen 08/08/2017 4:01 PM 018 4:01 (specimen) EST PM EST Yonathan Smith MD POINT OF CARE TEST ORDERABLE S Performing Organization Address City/State/[place] [address] POCT Glucose (08/08/2017 11:51 AM EST) athologist Signature POC Glucose 90 65 - 199 [facility] mg/dL [facility] Comment: Supplemental ranges: <140 mg/dL before meals <180 mg/dL all other times of the day Specimen Anatomical Collection Method Collection Time Receive d Time (Source) Location / / Volume Laterality Blood specimen 08/08/2017 11:51 8 (specimen) AM EST 11:51 AM EST Yonathan Smith MD POINT OF CARE TEST ORDERABLE S Performing Organization Address City/State/[place] [address] (ABNORMAL) APTT (08/08/2017 10:27 [...] Smith MD HEMATOLOGY ORDERABLES Performing Organization Address City/[facility]/ZIP Code Phon e Number [address] POCT Glucose (08/08/2017 8:02 AM EST) athologist Signature POC Glucose 178 65 - 199 [facility] mg/dL [facility]ORAT[facility] Comment: Supplemental [...] City/[facility]/[place] [address] (ABNORMAL) APTT (08/08/2017 4:51 AM EST) athologist Signature PTT >160 25 - 35 [facility] (Critical) sec [facility] LABORATORY Comment: Called by: HOWARD, [...] Address City/State/[place] [address] (ABNORMAL) Differential, Automated (08/08/2017 4:51 AM EST) [facility] gist Method Time Signature Neutrophils % 77.9 % [facility] LABORATORY Neutr Abs (ANC) 8.17 (H) 1.70 - [facility] 6.10 [facility] x10(3)/[facility] LABORATORY Lymphocytes % 10.3 % [facility] LABORATORY Lymphocytes Abs 1.1 0.9 - 3.2 [facility] x10(3)/[facility] LABORATORY Monocytes % 7.0 % [facility] LABORATORY Monocyte Abs 0.7 0.3 - 0.9 [facility] x10(3)/[facility] LABORATORY Eosinophils % 3.6 % [facility] LABORATORY Eosinophils Abs 0.4 0.0 - 0.4 [facility] x10(3)/[facility] LABORATORY Basophils % 0.5 % [facility] LABORATORY Basophils Abs 0.0 0.0 - 0.1 [facility] x10(3)/[facility] LABORATORY Immature Gran % 0.70 % [...] Address City/State/ZIP Code Phon e Number [address] (ABNORMAL) Hemogram (08/08/2017 4:51 AM EST) Analysis Performed At Patho logist Time Signature WBC 10.5 (H) 4.0 - 9.5 [facility] x[facility](3[facility] LABORATORY RBC 3.27 (L) 4.58 - [place] 5.54 [facility] x10(6)/[facility] LABORATORY Hemoglobin 9.3 (L) 13.7 - [facility] 16.5 gm/dL [facility] LABORATORY Hematocrit 30.3 (L) 40.5 - [facility] 48.5 % [facility] LABORATORY MCV 92.7 82.9 - [facility] 93.1 [facility] LABORATORY MCH 28.4 27.5 - [place] 32.1 pg [facility] LABORATORY MCHC 30.7 (L) 32.0 - [place] [facility] 35.7 gm/dL [facility] LABORATORY Platelets 252 145 - 357 [facility] x10(3)/[facility] LABORATORY RDWSD 54.6 (H) 36.0 - [place] 45.0 [facility] LABORATORY RDWCV 16.2 (H) 11.4 - [facility] RYAN 13.8 % [facility] LABORATORY MPV 9.1 7.6 - 12.9 [facility] LABORATORY nRBC % Auto 0.0 % [facility] LABORATORY nRBC Abs Auto 0.000 0.000 - [place] 0.000 [facility] x10(3)/[facility] LABORATORY Specimen Anatomical Collection Method Collection Time Receive d Time (Source) Location / / Volume Laterality Blood specimen 08/08/2017 4:51 AM 018 5:14 (specimen) EST AM EST Resulting Agency Comment Spec In Lab Yonathan Smith MD HEMATOLOGY ORDERABLES Performing Organization Address City/State/[place] [address] (ABNORMAL) Prothrombin Time (08/08/2017 [...] Comment Spec In Lab Yoanthan Smith MD HEMATOLOGY ORDERABLES Performing Organization Address City/State/[place] [address] (ABNORMAL) Basic Metabolic Panel (non-fasting) (08/08/2017 4:51 AM EST) athologist Signature Glucose Lvl 229 (H) 65 - 199 [facility] mg/dL [facility] LABORAT[facility] Comment: Diabetes: >=200 mg/dL plus symp toms BUN 35 (H) 10 - 20 mg/dL [facility] LABORATORY Creatinine 1.57 (H) 0.80 - 1.50 mg/dL [facility] LABORATORY Estimated GFR 44 (L) >=60 [facility] LABORATORY Comment: The reported eGFR should be multiplied b y 1.2 for patients. The MDRD is not an appropriate measure o f renal function for patients with body mass extremes or in patients with acute kidney failure. http://DogSpot/DHnkdep http://DogSpot/DHMCnkf Specimen Anatomical Collection Method Collection Time Receive d Time (Source) Location / / Volume Laterality Blood specimen 08/08/2017 4:51 AM 018 5:14 (specimen) EST AM EST Resulting Agency Comment Spec In Lab Yonathan Smith MD CHEMISTRY ORDERABLES Performing Organization Address City/[facility]/ZIP Code Phon e Number [address] POCT Glucose (08/08/2017 4:20 AM EST) athologist Signature POC Glucose 193 65 - 199 [facility] mg/dL [facility]OR[facility] Comment: Supplemental [...] City/[facility]/ZIP Code Phon e Number [address] POCT Glucose (08/07/2017 11:11 PM EST) athologist Signature POC Glucose 124 65 - 199 [facility] mg/dL [facility]ORAT[facility] Comment: Supplemental [...] City/[facility]/[place] [address] (ABNORMAL) APTT (08/07/2017 10:18 [...] Organization Address City/State/[place] [address] POCT Glucose (08/07/2017 8:10 PM EST) athologist Signature POC Glucose 140 65 - 199 [facility] mg/dL [facility] LABOR[facility] Comment: Supplemental ranges: <140 mg/dL before meals <180 mg/dL all other times of the day Specimen Anatomical Collection Method Collection Time Receive d Time (Source) Location / / Volume Laterality Blood specimen 08/07/2017 8:10 PM 018 8:10 (specimen) EST PM EST Yonathan Smith MD POINT OF CARE TEST ORDERABLE S Performing Organization Address City/State/[place] [address] POCT Glucose (08/07/2017 5:27 PM EST) athologist Signature POC Glucose 187 65 - 199 [facility] mg/dL [facility] LABORAT[facility] Comment: Supplemental [...] City/[facility]/[place] [address] POCT Glucose (08/07/2017 3:29 PM EST) athologist Signature POC Glucose 86 65 - 199 [facility] mg/dL [facility]OR[facility] Comment: Supplemental ranges: <140 mg/dL before meals <180 mg/dL all other times of the day Specimen Anatomical Collection Method Collection Time Receive d Time (Source) Location / / Volume Laterality Blood specimen 08/07/2017 3:29 PM 018 3:29 (specimen) EST PM EST Yonathan Smith MD POINT OF CARE TEST ORDERABLE S Performing Organization Address [facility] [place] [address] (ABNORMAL) APTT (08/07/2017 2:50 PM EST) athologist [facility] PTT 60 (H) 25 - 35 sec [...] Smtih MD HEMATOLOGY ORDERABLES Performing Organization Address City/[facility]/ZIP [facility] [place] [place] [address] (ABNORMAL) POCT Glucose (08/07/2017 2:23 PM EST) athologist Signature POC Glucose 55 (L) 65 - 199 [place] [facility] mg/dL [facility] LABORATORY Comment: Supplemental [...] Address City/State/ZIP Code Phon e Number [address] POCT Glucose (08/07/2017 12:08 PM EST) P athologist Signature POC Glucose 77 65 - 199 [facility] mg/dL [facility] LABOR[facility] Comment: Supplemental ranges: <140 mg/dL before meals <180 mg/dL all other times of the day Specimen Anatomical Collection Method Collection Time Receive d Time (Source) Location / / Volume Laterality Blood specimen 08/07/2017 12:08 8 (specimen) PM EST 12:08 PM EST Yonathan Smith MD POINT OF CARE TEST ORDERABLE S Performing Organization Address City/State/[place] [address] (ABNORMAL) Differential, Automated (08/07/2017 7:30 AM EST) Patholo gist Method Time Signature Neutrophils % 73.8 % [facility] LABORATORY Neutr Abs (ANC) 7.17 (H) 1.70 - [facility] 6.10 [facility] x10(3)/[facility] L LABORATORY Lymphocytes % 12.2 % [facility] LABORATORY Lymphocytes Abs 1.2 0.9 - 3.2 [facility] x10(3)/[facility] LABORATORY Monocytes % 9.0 % [facility] LABORATORY Monocyte Abs 0.9 0.3 - 0.9 [facility] x10(3)/[facility] LABORATORY Eosinophils % 3.9 % [facility] LABORATORY Eosinophils Abs 0.4 0.0 - 0.4 [facility] x10(3)/[facility] LABORATORY Basophils % 0.6 % [facility] LABORATORY Basophils Abs 0.1 0.0 - 0.1 [facility] x10(3)/[facility] LABORATORY Immature Gran % 0.50 % [...] City/State/ZIP Code Phon e Number [place] [id number] (ABNORMAL) Hemogram (08/07/2017 7:30 AM EST) Analysis Performed At Patho logist Time Signature WBC 9.7 (H) 4.0 - 9.5 [facility] x10(3)/[facility] LABORATORY RBC 3.54 (L) 4.58 - [facility] 5.54 [facility] x10(6)/[facility] LABORATORY Hemoglobin 9.9 (L) 13.7 - [facility] gm/dL [facility] LABORATORY Hematocrit 32.3 (L) 40.5 - [facility] 48.5 % [facility] LABORATORY MCV 91.2 82.9 - [facility] 93.1 [facility] LABORATORY MCH 28.0 27.5 - [facility] 32.1 pg [facility] LABORATORY MCHC 30.7 (L) 32.0 - [facility] 35.7 gm/dL [facility] LABORATORY Platelets 312 145 - 357 [facility] x10(3)/[facility] LABORATORY RDWSD 53.2 (H) 36.0 - [facility] RDWCV 16.0 (H) 11.4 - [facility] 13.8 % [facility] LABORATORY MPV 8.9 7.6 - 12.9 [facility] LABORATORY nRBC % Auto 0.0 % [facility] LABORATORY nRBC Abs Auto 0.000 0.000 - [facility] 0.000 [facility] x10(3)/[facility] LABORATORY Specimen Anatomical Collection Method Collection Time Receive d Time (Source) Location / / Volume Laterality Blood specimen 08/07/2017 7:30 AM 018 7:45 (specimen) EST AM EST Resulting Agency Comment Spec In Lab Yonathan Smith MD HEMATOLOGY ORDERABLES Performing Organization Address City/State/[place] [address] (ABNORMAL) Basic Metabolic Panel (non-fasting) (08/07/2017 7:30 AM EST) athologist Signature Glucose Lvl 80 65 - 199 [facility] mg/dL [facility] LABORATORY Comment: Diabetes: >=200 mg/dL plus symp toms BUN 31 (H) 10 - 20 mg/dL [facility] LABORATORY Creatinine 1.22 0.80 - 1.50 mg/dL [facility] LABORATORY Estimated GFR 59 (L) >=60 [facility] LABORATORY Comment: The reported eGFR should be multiplied b y 1.2 for patients. The MDRD is not an appropriate measure o f renal function for patients with body mass extremes or in patients with acute kidney failure. http://DogSpot/DHnkdep http://DogSpot/[facility]f Specimen Anatomical Collection Method Collection Time Receive d Time (Source) Location / / Volume Laterality Blood specimen 08/07/2017 7:30 AM 018 7:45 (specimen) EST AM EST Resulting Agency Comment Spec In Lab Yonathan Smith MD CHEMISTRY ORDERABLES Performing Organization Address City/[facility]/ZIP [facility] Phon e Number [address] POCT Glucose (08/07/2017 7:27 AM EST) athologist Signature POC Glucose 81 65 - 199 [facility] mg/dL [facility] LABORATORY Comment: Supplemental ranges: <140 mg/dL before meals <180 mg/dL all other times of the day Specimen Anatomical Collection Method Collection Time Receive d Time (Source) Location / / Volume Laterality Blood specimen 08/07/2017 7:27 AM 018 7:27 (specimen) EST AM EST Yonathan Smith MD POINT OF CARE TEST ORDERABLE S Performing Organization Address City/[facility] Phon e Number [address] APTT (08/07/2017 7:04 AM [...] Organization Address City/State/[place] [address] (ABNORMAL) Prothrombin Time (08/07/2017 [...] Organization Address City/State/[place] [address] POCT Glucose (08/07/2017 4:03 AM EST) athologist Signature POC Glucose 93 65 - 199 [facility] mg/dL [facility] LABORATORY Comment: Supplemental ranges: <140 mg/dL before meals <180 mg/dL all other times of the day Specimen Anatomical Collection Method Collection Time Receive d Time (Source) Location / / Volume Laterality Blood specimen 08/07/2017 4:03 AM 018 4:03 (specimen) EST AM EST Yonathan Smith MD POINT OF CARE TEST ORDERABLE S Performing Organization Address City/State/[place] [address] POCT Glucose (08/07/2017 12:04 AM EST) athologist Signature POC Glucose 107 65 - 199 [facility] mg/dL [facility] LABORATORY Comment: Supplemental [...] City/[facility]/ZIP Code Phon e Number [address] POCT Glucose (08/06/2017 7:56 PM EST) P athologist Signature POC Glucose 178 65 - 199 [facility] mg/dL [facility] LABORATORY Comment: Supplemental [...] Address City/State/ZIP Code Phon e Number [address] TcPO2 (08/06/2017 2:32 PM EST) Component Value Ref Test Analysis Performed At Patholo gist Range Method Time Signature VB Text Department: Vascular Surgery Lab VASCUBASE Report Patient: [id number] (GREGORY HOANG) CPT: 3440497 ICD10: I99.8 Referring Physician: YONATHAN SMITH ?? [...] Truong, VAMSI)1042 (Given - Provider: Dory Truong, VMASI) 2-4 mg, Oral, EVERY 3 HOURS PRN, [...]
Routine documented in this encounter Care Teams Tafe Teacher Relationship Specialty Start Date End Date Lovely Vicente MD PCP - General 04/16/[address] [place] [address] [address] [place] [address] documented as of this encounter
--- OUTSIDE RECORDS SUMMARY | 2022-04-08 08:51 | XMS_ITS | Encounter Summary ---
:1945 [place] [address] Care Team Providers Name Role Phone Lovely Vicente MD Primary Care Provider Reason for Visit Auth/Cert Specialty Diagnoses / Procedures Referred By Contact Refer red To Contact Diagnoses Critical lower limb ischemia CELLULITIS RT FOOT Procedures EMERGENCY Referral ID Status Reason Start Date Expiration Date Visits Requ ested Visits Authorized [id number] 1 1 Encounter Details Date Type Department Care Team Description 08/09/2017 Anesthesia Event Main Operating Room Daniele Lizama MD [facility] [place] [address] [facility] Rob Jones MD [facility] [place] [address] [place] [address] Anesthesia Record Procedure Summary Procedure Name [...] Knowles, Dory arm), right; VAMSI Rios, RN vcqo-tzf-lxblvh catheter system; 20 gauge; 08/16/17; 1047 PIV 07/29/17; 1413; median 07/29/17 1413 by 08/16/17 1047 by cubital vein (antecubital Magdalene Hickey Williams, Dory fossa), left; VAMSI Wyatt, RN etvs-ktx-rtfidw catheter system; 20 gauge; 08/16/17; 1047 PIV 08/06/17; 1742; cephalic 08/06/17 1742 by 0920 by vein (lateral side of Taylor Laureano Danah y, Caitlyn C, arm), right; VAMSI BONNER tpxz-nxy-tgoapf catheter system; 22 gauge, 1 in length; Eliseo LAUREANO RN VAS; distraction, intradermal injection, tolerated well, appears comfortable; 0; 08/16/17; 0920 Wound 08/07/17; 1335; knee; 08/07/17 1335 by 08/16/17 1047 by laceration; wound occured Barbara Albert iams, Dory VALVE PIPE IRRIGATOR; 08/16/17; 1047 VAMSI Alonzo, RN PIV 08/07/17; 1734; cephalic 08/07/17 1734 by 1047 by vein (lateral side of Kendrick, Carlos W, Willia ms, Dory arm), left; MARCIE Wyatt RN wnhx-ccn-jmptzb catheter system; 22 gauge; distraction, intradermal injection, [...] Santillan MD - 08/09/2017 9:01 AM EST [facility] Department of Anesthesiology Post-procedure Note Patient: Don Fatima Procedure Summary Date Anesthesia Start Anesthesia Stop Room / Location 08/09/[address] [facility] OR 14 / 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 Nerve [...] [facility] Social History Substance Use Topics [...] adequate IV access. Brody Santillan MD PGY-2, Tipple Tender Pager #[phone] Anesthesiology Staff (Dewhirst): Pre-op summary note as [...] Zulma Dolan MD [facility] [address] [place] [address] (Wo rk) 05/28/2022 Laboratory Appointment Lab 05/28/2022 Office Visit Cardiology Zulma Dolan MD [facility] [place] [address] Liz Poole PA [facility] [place] [address] 06/10/2022 Office Visit Dermatology Laura Scherer MD [facility] [address] [place], [place] [address] (Wo rk) documented as [...] Length: 10 cm Gauge: 21 Needle Type: L-uqdxj-baqnz Medication injection made in crementally with aspirations. [...] Procedure) documented in this encounter Care Teams Lmsw Relationship Specialty Start Date End Date Lovely Vicente MD PCP - General 04/16/15 [facility] [address] [place] [address] documented as of this encounter
--- OUTSIDE RECORDS SUMMARY | 2022-04-08 08:51 | XMS_ITS | Encounter Summary ---
:1945 Author Organization [facility] [place] [address] Care Team Providers Name Role Phone Lovely Vicente MD Primary Care Provider Reason for Visit Auth/Cert Specialty Diagnoses / Procedures Referred By Contact Refer red To Contact Diagnoses Critical lower limb ischemia CELLULITIS RT FOOT Procedures EMERGENCY Referral ID Status Reason Start Date Expiration Date Visits Requ ested Visits Authorized [id number] 1 1 Encounter Details Date Type Department Care Team Description 08/06/2017 Clinical [place] [facility] foot [facility] [place] [address] Social History Tobacco Use Types Packs/Day [...] noother symptoms except severe right foot pain. [facility] clinic called as pt on route [...] Cardiology Zulma Dolan MD [facility] [address] [place], [place] [address] (Wo rk) 05/28/2022 Laboratory Appointment Lab 05/28/2022 Office Visit Cardiology Zulma Dolan [place] [address] Liz Poole PA [facility] [place] [address] 06/10/2022 Office Visit Dermatology Laura Scherer MD [facility] [address] [place], [place] [address] (Wo rk) documented as of [...] 444 ms MUSE SYSTEM (Bezet) Calculated P [place] 44 degrees MUSE SYSTEM Calculated R [place] -31 degrees MUSE SYSTEM Calculated T [place] 106 degrees MUSE SYSTEM INTERPRETATION Normal sinus [...] disorder documented in this encounter Care Teams Assessment Clinician Relationship Specialty Start Date End Date Lovely Vicente MD PCP - General 04/16/[address] [place] [address] documented as of this encounter
--- OUTSIDE RECORDS SUMMARY | 2022-04-08 08:51 | XMS_ITS | Encounter Summary ---
:1945 Author Organization [employer] [place] [address] Care Team Providers Name Role Phone Lovely Vicente MD Primary Care Provider Reason for Visit Auth/Cert Specialty Diagnoses / Procedures Referred By Contact Refer red To Contact Diagnoses Critical lower limb ischemia CELLULITIS RT FOOT Procedures EMERGENCY Referral ID Status Reason Start Date Expiration Date Visits Requ ested Visits Authorized [id number] 1 1 Encounter Details Date Type Department Care Team Description 08/09/2017 Surgery Main Operating Room Yonathan Smith AM PUTATION, Mary Hitchcock MD TRANSMETATARSAL ([facility] 12.71) [facility] [address] [place] [address] [place] [address] [phone] Social History Tobacco Use Types Packs/Day Years [...] 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 Patient [...] Dorsalis Pedis (Ankle) Artery ?132 ? 0.94 ??Sampson-Biphasic ? Posterior Tibial (Ankle) Artery ??154 ? 1.10 ??Sampson-Biphasic ? Fourth Toe ? 67 ?0.48 ?? [...] foot. Discharge Conditions/Prognosis: Good Discharge to: [facility] Rehab Discharge Medications: Your Medications New [...] For any problems or questions please call [phone] ZELDA Smith, radio time sales supervisor Nurse Clinician For issues on weeknights after 5pm and weekends please call [phone] and ask for the Vascular Fellow operation specialist. General Instructions None Future Appointments and Orders Future Appointments Provider Department Dept Phone 08/26/2017 4:00 PM Aurelia Rivera PA Vascular Surgery at [place] [phone] 09/07/2017 3:00 PM LAB, THREE L Lab 3L [facility] [phone] 09/07/2017 4:00 PM Luz Prescott MD Endocrinology at [place] [phone] 09/09/2017 8:00 AM Barbra Soares APRN Pain Management at [place] [phone] Please bring a list of your current [...] For any problems or questions please call [phone] ZELDA Smith, radio time sales supervisor Nurse Clinician For issues on weeknights after 5pm and weekends please call [phone] and ask for the Vascular Fellow operation specialist. documented in this encounter Medications at [...] of Care Management Discharge Note Patient Destination: [facility] [address] [address] Transportation: with (at bedside) Time of Discharge: by 12 noon Level of Care: swing Patient Aware: yes Family Notified: yes Md to call report to: Yissel Quintero KEYBOARDING TEACHER already called RN to call report to: [phone] Shirin Wolf Office of Care Management Pager [phone] Shirin Wolf RN - 08/16/2017 10:50 AM EST [facility] has offered pt swing bed. Pt and accept bed. will transport via car. KEYBOARDING TEACHER Yissel Quintero aware; d/c paperwork will be completed by 12 noon. [facility] requests pt arrival by 1400 today; KEYBOARDING TEACHER, RN, and family aware. KEYBOARDING TEACHER called [facility] and was told that they prefer pt to arrive with wound vac dressing applied but clamped. KEYBOARDING TEACHER applied new wound vac dressing. RN has [facility] number to call report. PASSR completed; KEYBOARDING TEACHER paged to request provider signature in highlighted space. Indigo from [facility] notified via email that home wound vac now cancelled; [facility] has picked up from room and order cancelled. Packet started and provided to refrigeration unit repairer. Medicare important message explained to patient, patient signed. Copy provided to patient and signature page to OCM for inclusion in pt EMR. L Radha Powers Yoselin - 08/16/2017 10:34 AM EST Office of Care Management/Wire Rope Sales Representative Patient Name: Gregory Hoang : 1945 Patient has been offered a swing bed at [facility]. The patient will be transported by private transportation. No MD to MD report necessary Please call Nursing Report to [phone], ask for converting technician. Info to accompany patient: Narcotic Prescriptions Copies of Medication Administration Records and IV sheets for past 10 days. Plan: Wire Rope Sales Representative will be available to the patient and Learning And Development Administrator-RN and/or Chief Writer for further assistance. Patient will be discharged to: [address] [id number] Radha Powers, Wire Rope Sales Representative Mira Truong, VAMSI - 08/15/2017 10:05 PM EST [address] Flores to ask if he wanted to hold metoprolol dose. BP 95/58. OK to hold this dose Courtney Brito - 08/15/2017 3:26 PM EST Office of Care Management(OCM)/Wire Rope Sales Representative(RS)/ D/C Planning re : Patient is medically ready for d/c today. RS has been in contact with [facility] to see if they could offer a bed. [facility] is still reviewing the case and need their MD to review chart prior to accepting or declining. OCM team needs to check in with [facility] tomorrow to check on status. 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 Vac in [...] patient's referral to: [facility] PHONE: [phone] FAX: [phone] CM spoke with RS who said that [...] rehab. Await recommendations from PT. Covering pager #[phone]. 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 Freelance Court Reporter Kaitlin Saha, RN Pager #[phone] Payam Rosales - 08/13/2017 2:37 PM EST Kiln Placer Encounter Note Patient Name: Gregory Hoang : [id number] MR#: [id number] Admit Date: 08/06/2017 1:41 PM Hospital Day 7 days Narrative: Visited to introduce and assess acceptance of Kiln Placer services. Pt was awake, alert, oriented and in chair and family was there. Assessment:Patient coping positively with stresses of illness/hospitalization at this time. Pt says that he is hoping to get better and his family was there. Pt says that he has family care and supportand taking one day at time. Intervention and Outcome: Provided emotional support and encouraging presence. 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 A letter describing our affiliations was reviewed with them and theywere educated about their right to choose where referrals are placed. Patient requests referral to [facility]. PHONE: [phone] FAX: [phone]. And Home NPWT (Negative Pressure Wound Therapy) aka wound vac device made available to pt. Serial # confirmed. Reviewed [facility] Proof of Delivery/Assignment of Benefits Statement(POD/AOB) Form w patient or authorized agent signing on behalf of patient. Copy of POD/AOB provided to pt and other copy faxed to [employer] @ fax# [phone] Expected date of discharge: 08/12/2017. 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 Address: [address] [place] [address] [place] [address] (home) Mobile: Telephone Information: Referring Provider: No [...] by Manny Mcknight MD at [facility] MAIN OR ??? PRO CABG, ARTERIAL, SINGLE N/A 07/07/2017 @CABG, USING ARTERIAL GRAFT;SINGLE ARTERIAL GRAFT (WRVU 33.75) performed by Yuan Retana MD at [facility] MAIN OR ??? PRO CABG, ARTERY-VEIN, TWO N/A 07/07/2017 @CABG, TWO VENOUS GRAFTS & ARTERIAL GRAFT (WRVU 7.93) performed by Yuan Retana MD at [facility] MAIN OR ??? PRO COLONOSCOPY, REMV LESN, SNARE 01/16/2014 COLONOSCOPY, POLYPECTOMY, REMOVAL LESION BY SNARE performed by Nohemi Jaimes MD at [facility] ENDOSCOPY ??? PRO ENDOSCOPY W/VIDEO-ASST VEIN HARVEST, CABG Right 07/07/2017 ENDOSCOPIC HARVEST VEIN(S) FOR CABG (WRVU 0.31) performed by Yuan Retana MD at [facility] MAIN OR ??? PRO THYROIDECTOMY 03/28/2013 THYROIDECTOMY, TOTAL OR COMPLETE performed by Manny Mcknight MD at 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 Heparin gtt continues to [...] of : 1945 AGE 72 y.o. Address: [address] [place] [address] [place] [address] (home) Mobile: Telephone Information: Referring Provider: No [...] by Manny Mcknight MD at [facility] MAIN OR ??? PRO CABG, ARTERIAL, SINGLE N/A 07/07/2017 @CABG, USING ARTERIAL GRAFT;SINGLE ARTERIAL GRAFT (WRVU 33.75) performed by Yuan Retana MD at [facility] MAIN OR ??? PRO CABG, ARTERY-VEIN, TWO N/A 07/07/2017 @CABG, TWO VENOUS GRAFTS & ARTERIAL GRAFT (WRVU 7.93) performed by Yuan Retana MD at [facility] OR ??? PRO COLONOSCOPY, REMV LESN, SNARE 01/16/2014 COLONOSCOPY, POLYPECTOMY, REMOVAL LESION BY SNARE performed by Nohemi Jaimes MD at [facility] ENDOSCOPY ??? PRO ENDOSCOPY W/VIDEO-ASST VEIN HARVEST, CABG Right 07/07/2017 ENDOSCOPIC HARVEST VEIN(S) FOR CABG (WRVU 0.31) performed by Yuan Retana MD at [facility] MAIN OR ??? PRO THYROIDECTOMY 03/28/2013 THYROIDECTOMY, TOTAL OR COMPLETE performed by Manny Mcknight MD at 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 Vascular resident operation specialist and will forward result to the team prior to rounds. 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 Patient [...] by Manny Mcknight MD at [facility] MAIN OR ??? PRO CABG, ARTERIAL, SINGLE N/A 07/07/2017 @CABG, USING ARTERIAL GRAFT;SINGLE ARTERIAL GRAFT (WRVU 33.75) performed by Yuan Retana MD at [facility] MAIN OR ??? PRO CABG, ARTERY-VEIN, TWO N/A 07/07/2017 @CABG, TWO VENOUS GRAFTS & ARTERIAL GRAFT (WRVU 7.93) performed by Yuan Retana MD at [facility] MAIN OR ??? PRO COLONOSCOPY, REMV LESN, SNARE 01/16/2014 COLONOSCOPY, POLYPECTOMY, REMOVAL LESION BY SNARE performed by Nohemi Jaimes MD at [facility] ENDOSCOPY ??? PRO ENDOSCOPY W/VIDEO-ASST VEIN HARVEST, CABG Right 07/07/2017 ENDOSCOPIC HARVEST VEIN(S) FOR CABG (WRVU 0.31) performed by Yuan Retana MD at [facility] MAIN OR ??? PRO THYROIDECTOMY 03/28/2013 THYROIDECTOMY, TOTAL OR COMPLETE performed by Manny Mcknight MD at 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 [...] 2.5x80 5. Completion RLE angiogram 6. L SALESPERSON FASHION ACCESSORIES angiogram 7. 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 - L SALESPERSON FASHION ACCESSORIES angriogram demonstrated: High femoral bifurcation over the proximal half of the femoral head. L SALESPERSON FASHION ACCESSORIES access in the distal L SALESPERSON FASHION ACCESSORIES. - Closure device: Mynx Technical Procedure: The [...] for a 45cm 5F Destination. V18 and Trent and QuickCross catheters were used to select [...] 5F. A stationed picture of the L SALESPERSON FASHION ACCESSORIES was performed as the patient was noted to have a very high bifurcation. Access appeared in the distal R SALESPERSON FASHION ACCESSORIES. Closure and sheath removal was performed with [...] PM EST 1440 report called to 5 cavalier nurse Tessa RN documented in this encounter [...] pt and pt's spouse. Discharge to [facility]. Goal: Individualization & Mutuality Outcome: Outcome [...] sit/sit to supine -- Bed Mobility Goal, Milam Level independent -- Bed Mobility Goal, Date [...] days -- Transfer Training Goal, Activity Type kil-ay-sktnt/bttpr-jl-hrg -- Transfer Train Goal, Milam Level conditional independence -- Transfer Train Goal, [...] call cabello within reach, Hourly rounding by RN/DIRECTOR COMMERCIAL SALES. Bed alarm / Chair alarm. Patient-specific fall [...] Operative Note Patient Name: Gregory Hoang : [id number] MR#: [id number] Case Date: 08/09/2017 Surgeon: Surgeon(s) and Role: [...] 2.5x80 5. Completion RLE angiogram 6. L SALESPERSON FASHION ACCESSORIES angiogram 7. Mynx closure Precautions/Restrictions: fall, sternal [...] other (see comments) (or swing bed) Pager: [phone] BASSAM ELIAS, PT 08/14/2017 Inpatient Physical Therapy [...] to Achieve by discharge Gait Training Goal, Milam Level conditional independence;set up required Gait Training [...] facilities over the weekend except for [facility]. CM spoke with [facility] CM Drea Sandhu, VAMSI who said that they do not anticipate any beds over the weekend. Reviewed with patient/ that they need to be aware that patient will need to take the first bed offered at the facilities that they make referrals to. Their choices are: 1- [facility] PHONE: [phone] FAX: [phone] 2- [facility] [address] [place] [address] 3- [facility]) [address] [place] [address] I have discussed Medicare/Private [...] RS/CM on Wednesday to follow-up. Covering pager #[phone] for today. Plan of Care - Henrique [...] with additional findings of pseudoaneurysm on R SALESPERSON FASHION ACCESSORIES and bilateral anterior tibial artery occlusions. Was [...] an outpatient once discharged. Have patient call [phone] to set up an appointment. Follow-up: Dermatology will sign-off for now. Please do not hesitate to contact us if you have any questions orconcerns. Impression and Recommendations discussed with primary team on 08/13/2017. Karo Henderson MD Resident in Dermatology Section of Dermatology, Department of Surgery [facility] Pager [phone] Patient seen and evaluated with staff Dry Transfer Man: Halima Cordero MD Section of Dermatology [facility] Level of Resident Supervision: [...] Outcome: Ongoing (Interventions Implemented as Appropriate) 08/12/17 7036 Coping/Psychosocial Plan Of Care Reviewed With patient;spouse [...] 2.5x80 5. Completion RLE angiogram 6. L SALESPERSON FASHION ACCESSORIES angiogram 7. Mynx closure Active Non-Hospital Problems [...] home with home health ([facility] PT[facility]OT) Pager: [phone] YASIR TELLO OT 08/12/2017 Occupational Therapy Rehabilitation [...] 2.5x80 5. Completion RLE angiogram 6. L SALESPERSON FASHION ACCESSORIES angiogram 7. Mynx closure Past Medical History: [...] with 24/7 assistance and maximal services) Pager: [phone] NICHOLAS MORA, PT 08/12/2017 Physical Therapy Rehabilitation [...] sit/sit to supine -- Bed Mobility Goal, Milam Level independent -- Bed Mobility Goal, Outcome Achieved -- goal ongoing Goal: Gait Training Goal Stand Alone Therapy Goal Outcome: Ongoing (Interventions Implemented as Appropriate) 08/11/17 1310 08/12/17 1510 Gait Training Goal Gait Training Goal, Date Established 08/11/17 -- Gait Training Goal, Time to Achieve 5 - 7 days -- Gait Training Goal, Milam Level conditional independence -- Gait Training Goal, [...] days -- Transfer Training Goal, Activity Type jew-rn-ydxgx/mbshx-ox-eqp -- Transfer Train Goal, Milam Level conditional independence -- Transfer Training Goal, [...] Operative Note Patient Name: Gregory Hoang : [id number] MR#: [id number] Case Date: 08/11/2017 Surgeon: Surgeon(s) and Role: [...] 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 Completion RLE angiogram 6. L SALESPERSON FASHION ACCESSORIES angiogram 7. Mynx closure He is very [...] Anticipated Discharge Disposition: inpatient rehabilitation facility Pager: [phone] LAWRENCE GONZALEZ, PT 08/11/2017 Physical Therapy Rehabilitation [...] to sit/sit to supine Bed Mobility Goal, Milam Level independent Goal: Gait Training Goal Stand Alone Therapy Goal Outcome: Ongoing (Interventions Implemented as Appropriate) 08/11/17 1310 Gait Training Goal Gait Training Goal, Date Established 08/11/17 Gait Training Goal, Time to Achieve 5 - 7 days Gait Training Goal, Milam Level conditional independence Gait Training Goal, Assist [...] 7 days Transfer Training Goal, Activity Type oro-ik-snvtf/jrgas-ld-tcv Transfer Train Goal, Milam Level conditional independence Plan of David DelloAnnetta [...] call cabello within reach, Hourly rounding by RN/DIRECTOR COMMERCIAL SALES. Bed alarm / Chair alarm. ? Patient-specific [...] Planning: on file Kisha Hoang [facility] [phone] Current Coping/Education/Information Needs: pt and spouse state [...] Health/Prescription Coverage: Primary Insurance: MEDICARE Secondary Insurance: [place] Prescription Coverage: See above Preferred Pharmacy: [id number] Other: N/A Primary Care Provider: Lovely Vicente MD [phone] Patient/Caregiver Goals of Treatment: Patient plans to [...] of care planning. Kaitlin Saha RN Pager: [phone] Plan of Care - Melba Jaramillo RN [...] Overview Goal: Plan of Care Review 08/08/17 2224 Coping/Psychosocial Plan Of Care Reviewed With patient [...] call cabello within reach, Hourly rounding by RN/DIRECTOR COMMERCIAL SALES. Bed alarm / Chair alarm. Patient-specific fall prevention interventions for sensory deficits provided, if applicable: [X] Yes CPG GOAL OUTCOME EVALUATION: Goal: Fall Prevention-Safe Patient Handling Outcome: Ongoing (Interventions Implemented as Appropriate) 08/06/17 1700 08/06/17199908/07/17 3424 Positioning Body Position -- up in chair [...] at bedside and MD TEAM Carrying pager [phone] contacted (via Radio page) and notified of [...] Zulma Dolan MD [facility] [place], [place] [address] (Wo rk) 05/28/2022 Laboratory Appointment Lab 05/28/2022 Office Visit Cardiology Zulma Dolan MD [facility] [place] [address] Liz Poole PA [facility] [place] [address] 06/10/2022 Office Visit Dermatology Laura Scherer MD [facility] [address] [place], [place] [address] (Wo rk) documented as of [...] section. TYPE AND SCREEN Routine 08/09/2017 1:10 ([facility]DA) AM EST BASIC METABOLIC PANEL Routine 08/09/2017 [...] 160 65 - 199 [facility] mg/dL [place] [...] [place] [address] [facility] [address] (ABNORMAL) Differential, Automated (08/16/2017 5:08 AM EST) [facility] Method Time Signature Neutrophils % 73.9 % [facility] LABORATORY Neutr Abs (ANC) 5.37 1.70 - [facility] 6.10 [facility] x10(3)/[facility] LABORATORY Lymphocytes % 10.1 % [facility] LABORATORY Lymphocytes Abs 0.7 (L) 0.9 - 3.2 [facility] x10(3)/[facility] LABORATORY Monocytes % 10.1 % [facility] LABORATORY Monocyte Abs 0.7 0.3 - 0.9 [facility] x10(3)/[facility] LABORATORY Eosinophils % 5.1 % [facility] LABORATORY Eosinophils Abs 0.4 0.0 - 0.4 [facility] x10(3)/[facility] LABORATORY Basophils % 0.4 % [facility] LABORATORY Basophils Abs 0.0 0.0 - 0.1 [facility] x10(3)/[facility] LABORATORY Immature [...] Melisa Gran Abs 0.03 0.00 - 0.04 x10(3)/[facility] MAR Y [facility] LABORATORY Specimen Anatomical Collection Method Collection Time Receive d Time (Source) Location / / Volume Laterality Blood specimen 08/16/2017 5:08 AM 018 5:20 (specimen) EST AM EST Resulting Agency Comment Spec In Lab Yonathan Smith MD HEMATOLOGY ORDERABLES Performing Organization Address City/State/ZIP [place] [address] [facility] [address] (ABNORMAL) Hemogram (08/16/2017 5:08 AM EST) Analysis Performed At Patho logist Time Signature WBC 7.3 4.0 - 9.5 [facility] x10(3)/[facility] LABORATORY RBC 3.36 (L) 4.58 - [facility] 5.54 [facility] x10(6)/[facility] LABORATORY Hemoglobin 9.7 (L) 13.7 - [facility] 16.5 gm/dL [facility] Hematocrit 30.3 (L) 40.5 - [facility] 48.5 % [facility] MCV 90.2 82.9 - [facility] 93.1 [facility] LABORATORY MCH 28.9 27.5 - [facility] 32.1 pg [facility] MCHC 32.0 32.0 - [facility] 35.7 gm/dL [facility] Platelets 282 145 - 357 [facility] x10(3)/[facility] LABORATORY RDWSD 53.9 (H) 36.0 - [facility] 45.0 [facility] LABORATORY RDWCV 16.5 (H) 11.4 - [facility] 13.8 % [facility] MPV 9.0 7.6 - 12.9 [facility] LABORATORY nRBC % Auto 0.0 % [facility] LABORATORY nRBC Abs Auto 0.000 0.000 - [facility] 0.000 [facility] x10(3)/[facility] LABORATORY Specimen Anatomical Collection Method Collection Time Receive d Time (Source) Location / / Volume Laterality Blood specimen 08/16/2017 5:08 AM 018 5:20 (specimen) EST AM EST Resulting Agency Comment Spec In Lab Yonathan Smith MD HEMATOLOGY ORDERABLES Performing Organization Address City/State/ZIP [place] [address] (ABNORMAL) Basic Metabolic Panel (non-fasting) (08/16/2017 5:08 AM EST) P athologist Signature Glucose Lvl 141 65 - 199 [facility] mg/dL [facility] Comment: Diabetes: [...] or in patients with acute kidney failure. [email or web address] [email or web address] Specimen Anatomical Collection Method Collection Time Receive d Time (Source) Location / / Volume Laterality Blood specimen 08/16/2017 5:08 AM 018 5:20 (specimen) EST AM EST Resulting Agency Comment Spec In Lab Yonathan Smith MD CHEMISTRY ORDERABLES Performing Organization Address City/State/[place] [address] (ABNORMAL) Prothrombin Time (08/16/2017 [...] Smith MD HEMATOLOGY ORDERABLES Performing Organization Address City/[facility]/ZIP Code Phon e Number [address] POCT Glucose (08/16/2017 4:09 AM EST) athologist Signature POC Glucose 147 65 - 199 [facility] mg/dL [facility] LABORATORY Comment: [...] Address City/[facility]/ZIP Code Phon e Number [address] POCT Glucose (08/15/2017 11:56 PM EST) athologist Signature POC Glucose 176 65 - 199 [facility] mg/dL [place] [...] Address City/[facility]/ZIP Code Phon e Number [address] POCT Glucose (08/15/2017 8:05 PM EST) athologist Signature POC Glucose 136 65 - 199 [facility] mg/dL [place] [...] Address City/State/[place] [address] (ABNORMAL) POCT Glucose (08/15/2017 4:50 PM EST) athologist Signature POC Glucose 232 (H) 65 - 199 [facility] mg/dL [place] [...] Address City/State/[place] [address] POCT Glucose (08/15/2017 12:04 PM EST) athologist Signature POC Glucose 135 65 - 199 [facility] mg/dL [place] [...] Address City/State/[place] [address] POCT Glucose (08/15/2017 7:36 AM EST) athologist Signature POC Glucose 124 65 - 199 [facility] mg/dL [place] [...] [place] [address] (ABNORMAL) Differential, Automated (08/15/2017 6:22 AM EST) [facility] Method Time Signature Neutrophils % 76.1 % [facility] LABORATORY Neutr Abs (ANC) 6.62 (H) 1.70 - [facility] 6.10 [facility] x10(3)/[facility] LABORATORY Lymphocytes % 9.3 % [facility] LABORATORY Lymphocytes Abs 0.8 (L) 0.9 - 3.2 [facility] x10(3)/[facility] LABORATORY Monocytes % 9.4 % [facility] LABORATORY Monocyte Abs 0.8 0.3 - 0.9 [facility] x10(3)/[facility] LABORATORY Eosinophils % 4.0 % [facility] LABORATORY Eosinophils Abs 0.4 0.0 - 0.4 [facility] x10(3)/[facility] LABORATORY Basophils % 0.6 % [facility] LABORATORY Basophils Abs 0.0 0.0 - 0.1 [facility] x10(3)/[facility] LABORATORY Immature Gran % 0.60 [...] Smith MD HEMATOLOGY ORDERABLES Performing Organization Address City/[facility]/ZIP Code Phon e Number [address] (ABNORMAL) Hemogram (08/15/2017 6:22 AM EST) Analysis Performed At Patho logist Time Signature WBC 8.7 4.0 - 9.5 [facility] x10(3)/[facility] LABORATORY RBC 3.21 (L) 4.58 - [facility] 5.54 [facility] x10(6)/[facility] LABORATORY Hemoglobin 9.1 (L) 13.7 - [facility] 16.5 gm/dL [facility] Hematocrit 29.0 (L) 40.5 - [facility] 48.5 % [facility] MCV 90.3 82.9 - [facility] 93.1 [facility] LABORATORY MCH 28.3 27.5 - [facility] 32.1 pg [facility] LAB[facility]AT[facility] MCHC 31.4 (L) 32.0 - [facility] 35.7 gm/dL [facility] Platelets 254 145 - 357 [facility] x10(3)/[facility] LABORATORY RDWSD 53.9 (H) 36.0 - [facility] 45.0 [facility] LABORATORY RDWCV 16.3 (H) 11.4 - [facility] 13.8 % [facility] LABORATORY MPV 8.8 7.6 - 12.9 [facility] LABORATORY nRBC % Auto 0.0 % [facility] LABORATORY nRBC Abs Auto 0.000 0.000 - [facility] 0.000 [facility] x10(3)/[facility] LABORATORY Specimen Anatomical Collection Method Collection Time Receive d Time (Source) Location / / Volume Laterality Blood specimen 08/15/2017 6:22 AM 018 6:33 (specimen) EST AM EST Resulting Agency Comment Spec In Lab Yonathan Smith MD HEMATOLOGY ORDERABLES Performing Organization Address City/State/ZIP Code Phon e Number [facility] [place] [address] (ABNORMAL) Basic Metabolic Panel (non-fasting) (08/15/2017 6:22 AM EST) P athologist Signature Glucose Lvl 118 65 - 199 [facility] mg/dL [facility] Comment: Diabetes: [...] or in patients with acute kidney failure. [email or web address] Specimen Anatomical Collection Method Collection Time Receive d Time (Source) Location / / Volume Laterality Blood specimen 08/15/2017 6:22 AM 018 6:33 (specimen) EST AM EST Resulting Agency Comment Spec In Lab Yonathan Smith MD CHEMISTRY ORDERABLES Performing Organization Address City/State/ZIP Code Phon e Number [address] (ABNORMAL) Prothrombin Time (08/15/2017 [...] Address City/State/ZIP Code Phon e Number [address] POCT Glucose (08/15/2017 4:33 AM EST) athologist Signature POC Glucose 164 65 - 199 [facility] mg/dL [facility] Comment: Supplemental ranges: <140 mg/dL before meals <180 mg/dL all other times of the day Specimen Anatomical Collection Method Collection Time Receive d Time (Source) Location / / Volume Laterality Blood specimen 08/15/2017 4:33 AM 018 4:33 (specimen) EST AM EST Yonathan Smith MD POINT OF CARE TEST ORDERABLE S Performing Organization Address City/State/ZIP Code Phon e Number [address] POCT Glucose (08/15/2017 12:12 AM EST) athologist Signature POC Glucose 89 65 - 199 [facility] mg/dL [facility] Comment: Supplemental ranges: <140 mg/dL before meals <180 mg/dL all other times of the day Specimen Anatomical Collection Method Collection Time Receive d Time (Source) Location / / Volume Laterality Blood specimen 08/15/2017 12:12 8 (specimen) AM EST 12:12 AM EST Yonathan Smith MD POINT OF CARE TEST ORDERABLE S Performing Organization Address City/State/ZIP Code Phon e Number [address] (ABNORMAL) POCT Glucose (08/14/2017 8:07 PM EST) athologist Signature POC Glucose 204 (H) 65 - 199 [facility] mg/dL [place] [...] Address City/[facility]/[place] [address] POCT Glucose (08/14/2017 5:11 PM EST) athologist Signature POC Glucose 174 65 - 199 [facility] mg/dL [place] [...] Address City/State/[place] [address] POCT Glucose (08/14/2017 12:10 PM EST) athologist Signature POC Glucose 141 65 - 199 [facility] mg/dL [place] [...] Address City/State/ZIP Code Phon e Number [address] POCT Glucose (08/14/2017 8:07 AM EST) P athologist Signature POC Glucose 158 65 - 199 [facility] mg/dL [facility] Comment: Supplemental [...] Address City/State/ZIP Code Phon e Number [address] (ABNORMAL) Differential, Automated (08/14/2017 4:52 AM EST) Patholo gist Method Time Signature Neutrophils % 78.6 % [facility] LABORATORY Neutr Abs (ANC) 7.70 (H) 1.70 - [facility] 6.10 [facility] x10(3)/[facility] LABORATORY Lymphocytes % 7.8 % [facility] LABORATORY Lymphocytes Abs 0.8 (L) 0.9 - 3.2 [facility] x10(3)/[facility] LABORATORY Monocytes % 8.8 % [facility] LABORATORY Monocyte Abs 0.9 0.3 - 0.9 [facility] x10(3)/[facility] LABORATORY Eosinophils % 4.0 % [facility] LABORATORY Eosinophils Abs 0.4 0.0 - 0.4 [facility] x10(3)/[facility] LABORATORY Basophils % 0.5 % [facility] LABORATORY Basophils Abs 0.0 0.0 - 0.1 [facility] x10(3)/[facility] LABORATORY Immature Gran % 0.30 [...] Melisa Gran Abs 0.03 0.00 - 0.04 x10(3)/[facility] Y [facility] LABORATORY Specimen Anatomical Collection Method Collection Time Receive d Time (Source) Location / / Volume Laterality Blood specimen 08/14/2017 4:52 AM 018 5:08 (specimen) EST AM EST Resulting Agency Comment Spec In Lab Yonathan Smith MD HEMATOLOGY ORDERABLES Performing Organization Address City/State/Z[place] [address] (ABNORMAL) Hemogram (08/14/2017 4:52 AM EST) Analysis Performed At Patho logist Time Signature WBC 9.8 (H) 4.0 - 9.5 [facility] x10(3)/[facility] LABORATORY RBC 3.32 (L) 4.58 - [facility] 5.54 [facility] x10(6)/[facility] LABORATORY Hemoglobin 9.5 (L) 13.7 - [facility] 16.5 gm/dL [facility] Hematocrit 30.3 (L) 40.5 - [facility] 48.5 % [facility] MCV 91.3 82.9 - [facility] 93.1 [facility] LABORATORY MCH 28.6 27.5 - [facility] 32.1 pg [facility] MCHC 31.4 (L) 32.0 - [facility] 35.7 gm/dL [facility] Platelets 263 145 - 357 [facility] x10(3)/[facility] LABORATORY RDWSD 54.8 (H) 36.0 - [facility] 45.0 [facility] LABORATORY RDWCV 16.5 (H) 11.4 - [facility] 13.8 % [facility] LABORATORY MPV 9.1 7.6 - 12.9 [facility] LABORATORY nRBC % Auto 0.0 % [facility] LABORATORY nRBC Abs Auto 0.000 0.000 - [facility] 0.000 [facility] x10(3)/[facility] LABORATORY Specimen Anatomical Collection Method Collection Time Receive d Time (Source) Location / / Volume Laterality Blood specimen 08/14/2017 4:52 AM 018 5:08 (specimen) EST AM EST Resulting Agency Comment Spec In Lab Yonathan Smith MD HEMATOLOGY ORDERABLES Performing Organization Address City/[facility]/[place] [address] (ABNORMAL) Prothrombin Time (08/14/2017 [...] Smith MD HEMATOLOGY ORDERABLES Performing Organization Address City/[facility]/[place] [address] (ABNORMAL) Basic Metabolic Panel (non-fasting) (08/14/2017 4:52 AM EST) athologist Signature Glucose Lvl 135 65 - 199 [facility] mg/dL [facility] Comment: Diabetes: [...] or in patients with acute kidney failure. [email or web address] Specimen Anatomical Collection Method Collection Time Receive d Time (Source) Location / / Volume Laterality Blood specimen 08/14/2017 4:52 AM 018 5:08 (specimen) EST AM EST Resulting Agency Comment Spec In Lab Yonathan Smith MD CHEMISTRY ORDERABLES Performing Organization Address City/[facility]/ZIP Code Phon e Number [address] POCT Glucose (08/14/2017 3:56 AM EST) P athologist Signature POC Glucose 135 65 - 199 [facility] mg/dL [facility] Comment: Supplemental [...] Address City/[facility]/[place] [address] POCT Glucose (08/13/2017 11:13 PM EST) athologist Signature POC Glucose 118 65 - 199 [facility] mg/dL [place] [...] Address City/State/[place] [address] (ABNORMAL) POCT Glucose (08/13/2017 8:08 PM EST) athologist Signature POC Glucose 204 (H) 65 - 199 [facility] mg/dL [facility] Comment: Supplemental ranges: <140 mg/dL before meals <180 mg/dL all other times of the day Specimen Anatomical Collection Method Collection Time Receive d Time (Source) Location / / Volume Laterality Blood specimen 08/13/2017 8:08 PM 018 8:08 (specimen) EST PM EST Yonathan Smith MD POINT OF CARE TEST ORDERABLE S Performing Organization Address City/State/[place] [address] POCT Glucose (08/13/2017 4:02 PM EST) athologist Signature POC Glucose 145 65 - 199 [facility] mg/dL [facility] Comment: [...] Address City/State/[place] [address] POCT Glucose (08/13/2017 11:31 AM EST) athologist Signature POC Glucose 179 65 - 199 [facility] mg/dL [facility] Comment: Supplemental ranges: <140 mg/dL before meals <180 mg/dL all other times of the day Specimen Anatomical Collection Method Collection Time Receive d Time (Source) Location / / Volume Laterality Blood specimen 08/13/2017 11:31 8 (specimen) AM EST 11:31 AM EST Yonathan Smith MD POINT OF CARE TEST ORDERABLE S Performing Organization Address City/[facility]/[place] [address] (ABNORMAL) POCT Glucose (08/13/2017 10:16 AM EST) athologist Signature POC Glucose 211 (H) 65 - 199 [facility] mg/dL [facility] Comment: Supplemental ranges: <140 mg/dL before meals <180 mg/dL all other times of the day Specimen Anatomical Collection Method Collection Time Receive d Time (Source) Location / / Volume Laterality Blood specimen 08/13/2017 10:16 8 (specimen) AM EST 10:16 AM EST Yonathan Smith MD POINT OF CARE TEST ORDERABLE S Performing Organization Address City/[facility]/[place] [address] JULIAN, legs, multiple levels (08/13/2017 7:42 AM EST) Component Value Ref Test Analysis [facility] Method Time Signature VB Text Department: Vascular Surgery Lab VASCUBASE Report Patient: [id number] (GREGORY HOANG) CPT: 40040 ICD10: I99.8 Referring Physician: YONATHAN SMITH ?? Indications: s/p R 1,2,3 toe amps with red left foot, need n ew baseline Diabetes mellitus: yes ICD10 Diagnosis Code: I99.8 Findings: Right ?Pressure (mm Hg) ?? JULIAN ??Waveform ?TBI ?? Brachial Artery ?138 ? Dorsalis Pedis (Ankle) Arter y ?132 ? 0.94 ??Sampson- Biphasic ? Posterior Tibial (Ankle) Art anila ??154 ? 1.10 ??Sampson-Biphasic ? Fourth Toe ? 67 ? 0.48 [...] Signature POC Glucose 156 65 - 199 [facility] mg/dL [facility] Comment: Supplemental [...] [place] [address] (ABNORMAL) Differential, Automated (08/13/2017 5:33 AM EST) Patholo gist Method Time Signature Neutrophils % 77.8 % [facility] LABORATORY Neutr Abs (ANC) 7.83 (H) 1.70 - [facility] 6.10 [facility] x10(3)/[facility] LABORATORY Lymphocytes % 8.4 % [facility] LABORATORY Lymphocytes Abs 0.8 (L) 0.9 - 3.2 [facility] x10(3)/[facility] LABORATORY Monocytes % 8.3 % [facility] LABORATORY Monocyte Abs 0.8 0.3 - 0.9 [facility] x10(3)/[facility] LABORATORY Eosinophils % 4.6 % [facility] LABORATORY Eosinophils Abs 0.5 (H) 0.0 - 0.4 [facility] x10(3)/[facility] LABORATORY Basophils % 0.5 % [facility] LABORATORY Basophils Abs 0.0 0.0 - 0.1 [facility] x10(3)/[facility] LABORATORY Immature Gran % 0.40 [...] Melisa Gran Abs 0.04 0.00 - 0.04 x10(3)/[facility] LABORATORY Specimen Anatomical Collection Method Collection Time Receive d Time (Source) Location / / Volume Laterality Blood specimen 08/13/2017 5:33 AM 018 6:04 (specimen) EST AM EST Resulting Agency Comment Spec In Lab Yonathan Smith MD HEMATOLOGY ORDERABLES Performing Organization Address City/State/ZIP Code Phon e Number [place] [id number] (ABNORMAL) Hemogram (08/13/2017 5:33 AM EST) Analysis Performed At Patho logist Time Signature WBC 10.1 (H) 4.0 - 9.5 [facility] x10(3)/[facility] LABORATORY RBC 3.21 (L) 4.58 - [facility] 5.54 [facility] x10(6)/[facility] LABORATORY Hemoglobin 9.2 (L) 13.7 - [facility] 16.5 gm/dL [facility] Hematocrit 29.6 (L) 40.5 - [facility] 48.5 % [facility] MCV 92.2 82.9 - [facility] 93.1 [facility] LABORATORY MCH 28.7 27.5 - [facility] 32.1 pg [facility] MCHC 31.1 (L) 32.0 - [facility] 35.7 gm/dL [facility] Platelets 263 145 - 357 [facility] x10(3)/[facility] LABORATORY RDWSD 54.8 (H) 36.0 - [facility] 45.0 [facility] LABORATORY RDWCV 16.4 (H) 11.4 - [facility] 13.8 % [facility] LABORATORY MPV 9.2 7.6 - 12.9 [facility] LABORATORY nRBC % Auto 0.0 % [facility] LABORATORY nRBC Abs Auto 0.000 0.000 - [facility] 0.000 [facility] x10(3)/[facility] LABORATORY Specimen Anatomical Collection Method Collection Time Receive d Time (Source) Location / / Volume Laterality Blood specimen 08/13/2017 5:33 AM 018 6:04 (specimen) EST AM EST Resulting Agency Comment Spec In Lab Yonathan Smith MD HEMATOLOGY ORDERABLES Performing Organization Address City/State/[place] [address] (ABNORMAL) Prothrombin Time (08/13/2017 [...] [place] [address] (ABNORMAL) Basic Metabolic Panel (non-fasting) (08/13/2017 5:33 AM EST) P athologist Signature Glucose Lvl 126 65 - 199 [facility] mg/dL [facility] Comment: Diabetes: [...] or in patients with acute kidney failure. [email or web address] Specimen Anatomical Collection Method Collection Time Receive d Time (Source) Location / / Volume Laterality Blood specimen 08/13/2017 5:33 AM 018 6:04 (specimen) EST AM EST Resulting Agency Comment Spec In Lab Yonathan Smith MD CHEMISTRY ORDERABLES Performing Organization Address City/State/ZIP Code Phon e Number [address] POCT Glucose (08/13/2017 4:29 AM EST) athologist Signature POC Glucose 111 65 - 199 [facility] mg/dL [facility] Comment: Supplemental [...] Address City/[facility]/[place] [address] POCT Glucose (08/12/2017 11:28 PM EST) athologist Signature POC Glucose 164 65 - 199 [facility] mg/dL [place] [...] Address City/[facility]/ZIP Code Phon e Number [address] (ABNORMAL) POCT Glucose (08/12/2017 [...] Address City/State/ZIP Code Phon e Number [address] POCT Glucose (08/12/2017 4:24 PM EST) athologist Signature POC Glucose 161 65 - 199 [facility] mg/dL [place] [...] Address City/State/ZIP Code Phon e Number [address] POCT Glucose (08/12/2017 12:00 PM EST) athologist Signature POC Glucose 167 65 - 199 [facility] mg/dL [place] [...] Address City/State/ZIP Code Phon e Number [address] POCT Glucose (08/12/2017 7:25 AM EST) athologist Signature POC Glucose 152 65 - 199 [facility] mg/dL [place] [...] [place] [address] (ABNORMAL) Differential, Automated (08/12/2017 6:29 AM EST) [facility] Method Time Signature Neutrophils % 78.7 % [facility] LABORATORY Neutr Abs (ANC) 7.94 (H) 1.70 - [facility] 6.10 [facility] x10(3)/[facility] LABORATORY Lymphocytes % 8.8 % [facility] LABORATORY Lymphocytes Abs 0.9 0.9 - 3.2 [facility] x10(3)/[facility] LABORATORY Monocytes % 7.8 % [facility] LABORATORY Monocyte Abs 0.8 0.3 - 0.9 [facility] x10(3)/[facility] LABORATORY Eosinophils % 3.9 % [facility] LABORATORY Eosinophils Abs 0.4 0.0 - 0.4 [facility] x10(3)/[facility] LABORATORY Basophils % 0.3 % [facility] LABORATORY Basophils Abs 0.0 0.0 - 0.1 [facility] x10(3)/[facility] LABORATORY Immature Gran % 0.50 [...] Address City/State/ZIP Code Phon e Number [address] (ABNORMAL) Hemogram (08/12/2017 6:29 AM EST) Analysis Performed At Patho logist Time Signature WBC 10.1 (H) 4.0 - 9.5 [facility](3[facility] LABORATORY RBC 3.02 (L) 4.58 - [facility] 5.54 [facility] x10(6)/[facility] LABORATORY Hemoglobin 8.7 (L) 13.7 - [facility] 16.5 gm/dL [facility] Hematocrit 28.1 (L) 40.5 - [facility] 48.5 % [facility]ORAT[facility] MCV 93.0 82.9 - [facility] 93.1 [facility] LABORATORY MCH 28.8 27.5 - [facility] 32.1 pg [facility] LAB[facility]AT[facility] MCHC 31.0 (L) 32.0 - [facility] 35.7 gm/dL [facility] Platelets 223 145 - 357 [facility] x10(3)/[facility] LABORATORY RDWSD 56.1 (H) 36.0 - [facility] 45.0 [facility] LABORATORY RDWCV 16.4 (H) 11.4 - [facility] 13.8 % [facility] LABORATORY MPV 9.0 7.6 - 12.9 [facility] LABORATORY nRBC % Auto 0.0 % [facility] LABORATORY nRBC Abs Auto 0.000 0.000 - [facility] 0.000 [facility] x10(3)/[facility] LABORATORY Specimen Anatomical Collection Method Collection Time Receive d Time (Source) Location / / Volume Laterality Blood specimen 08/12/2017 6:29 AM 018 6:38 (specimen) EST AM EST Resulting Agency Comment Spec In Lab Yonathan Simth MD HEMATOLOGY ORDERABLES Performing Organization Address City/State/[place] [address] (ABNORMAL) Prothrombin Time (08/12/2017 [...] Address City/State/[place] [address] (ABNORMAL) Basic Metabolic Panel (non-fasting) (08/12/2017 6:29 AM EST) athologist Signature Glucose Lvl 151 65 - 199 [facility] mg/dL [facility] Comment: Diabetes: [...] or in patients with acute kidney failure. [email or web address] Specimen Anatomical Collection Method Collection Time Receive d Time (Source) Location / / Volume Laterality Blood specimen 08/12/2017 6:29 AM 018 6:38 (specimen) EST AM EST Resulting Agency Comment Spec In Lab Yonathan Smith MD CHEMISTRY ORDERABLES Performing Organization Address City/[facility]/ZIP Code Phon e Number [address] POCT Glucose (08/12/2017 4:08 AM EST) athologist Signature POC Glucose 181 65 - 199 [facility]dL [facility] Comment: Supplemental ranges: <140 mg/dL before meals <180 mg/dL all other times of the day Specimen Anatomical Collection Method Collection Time Receive d Time (Source) Location / / Volume Laterality Blood specimen 08/12/2017 4:08 AM 018 4:08 (specimen) EST AM EST Yonathan Smith MD POINT OF CARE TEST ORDERABLE S Performing Organization Address City/State/[place] [address] (ABNORMAL) POCT Glucose (08/12/2017 12:17 AM EST) P athologist Signature POC Glucose 221 (H) 65 - 199 [facility] Comment: Supplemental ranges: <140 mg/dL before meals <180 mg/dL all other times of the day Specimen Anatomical Collection Method Collection Time Receive d Time (Source) Location / / Volume Laterality Blood specimen 08/12/2017 12:17 8 (specimen) AM EST 12:17 AM EST Yonathan Smith MD POINT OF CARE TEST ORDERABLE S Performing Organization Address City/[facility]/ZIP Code Phon e Number [address] (ABNORMAL) POCT Glucose (08/11/2017 8:52 PM EST) athologist Signature POC Glucose 221 (H) 65 - 199 [place] mg/dL [facility] Comment: Supplemental ranges: <140 mg/dL before meals <180 mg/dL all other times of the day Specimen Anatomical Collection Method Collection Time Receive d Time (Source) Location / / Volume Laterality Blood specimen 08/11/2017 8:52 PM 018 8:52 (specimen) EST PM EST Yonathna Smith MD POINT OF CARE TEST ORDERABLE S Performing Organization Address City/[facility]/[place] [address] POCT Glucose (08/11/2017 5:59 PM EST) athologist Signature POC Glucose 169 65 - 199 [place] [facility] mg/dL [facility] [...] Address City/[facility]/[place] [address] (ABNORMAL) POCT Glucose (08/11/2017 [...] Address City/State/ZIP Code Phon e Number [address] POCT Glucose (08/11/2017 12:04 PM EST) athologist Signature POC Glucose 182 65 - 199 [facility] Comment: Supplemental ranges: <140 mg/dL before meals <180 mg/dL all other times of the day Specimen Anatomical Collection Method Collection Time Receive d Time (Source) Location / / Volume Laterality Blood specimen 08/11/2017 12:04 8 (specimen) PM EST 12:04 PM EST Yonathan Smith MD POINT OF CARE TEST ORDERABLE S Performing Organization Address City/State/ZIP Code Phon e Number [address] POCT Glucose (08/11/2017 7:31 AM EST) athologist Signature POC Glucose 156 65 - 199 [facility] Comment: Supplemental ranges: <140 mg/dL before meals <180 mg/dL all other times of the day Specimen Anatomical Collection Method Collection Time Receive d Time (Source) Location / / Volume Laterality Blood specimen 08/11/2017 7:31 AM 018 7:31 (specimen) EST AM EST Yonathan Smith MD POINT OF CARE TEST ORDERABLE S Performing Organization Address City/State/ZIP Code Phon e Number [address] (ABNORMAL) Differential, Automated (08/11/2017 6:16 AM EST) [facility] gist Method Time Signature Neutrophils % 83.7 % [facility]ORY Neutr Abs (ANC) 10.76 (H) 1.70 - [facility] 6.10 [facility] x10(3)/[facility] LABORATORY Lymphocytes % 6.0 % [facility] Lymphocytes Abs 0.8 (L) 0.9 - 3.2 [facility] x10(3)/[facility] LABORATORY Monocytes % 7.5 % [facility]ORY Monocyte Abs 1.0 (H) 0.3 - 0.9 [facility] x10(3)/[facility] LABORATORY Eosinophils % 2.0 % [facility] Eosinophils Abs 0.3 0.0 - 0.4 [facility] x10(3)/[facility] LABORATORY Basophils % 0.3 % [facility] Basophils Abs 0.0 0.0 - 0.1 [facility] x10(3)/[facility] LABORATORY Immature Gran % 0.50 [...] [place] [address] (ABNORMAL) Hemogram (08/11/2017 6:16 AM EST) Analysis Performed At Patho logist Time Signature WBC 12.9 (H) 4.0 - 9.5 [facility] x10(3)/[facility] LABORATORY RBC 3.28 (L) 4.58 - [facility] 5.54 [facility] x10(6)/[facility] LABORATORY Hemoglobin 9.5 (L) 13.7 - [facility] 16.5 gm/dL [facility] Hematocrit 29.8 (L) 40.5 - [facility] 48.5 % [facility] MCV 90.9 82.9 - [facility] 93.1 [facility] LABORATORY MCH 29.0 27.5 - [place] RYAN 32.1 pg [facility] MCHC 31.9 (L) 32.0 - [place] DAVIS 35.7 gm/dL [facility] Platelets 236 145 - 357 [facility] x10(3)/[facility] LABORATORY RDWSD 53.5 (H) 36.0 - [facility] 45.0 [facility] LABORATORY RDWCV 16.3 (H) 11.4 - [facility] 13.8 % [facility] MPV 8.8 7.6 - 12.9 [facility] LABORATORY nRBC % Auto 0.0 % [facility] nRBC Abs Auto 0.000 0.000 - [facility] 0.000 [facility] x10(3)/[facility] LABORATORY Specimen Anatomical Collection Method Collection Time Receive d Time (Source) Location / / Volume Laterality Blood specimen 08/11/2017 6:16 AM 018 6:24 (specimen) EST AM EST Resulting Agency Comment Spec In Lab Yonathan Smith MD HEMATOLOGY ORDERABLES Performing Organization Address City/State/[place] [address] (ABNORMAL) Prothrombin Time (08/11/2017 [...] Smith MD HEMATOLOGY ORDERABLES Performing Organization Address City/[facility]/[place] [address] Basic Metabolic Panel (non-fasting) (08/11/2017 6:16 AM EST) athologist Signature Glucose Lvl 139 65 - 199 [facility] mg/dL [facility] Comment: Diabetes: [...] or in patients with acute kidney failure. [email or web address] [email or web address] Specimen Anatomical Collection Method Collection Time Receive d Time (Source) Location / / Volume Laterality Blood specimen 08/11/2017 6:16 AM 018 6:24 (specimen) EST AM EST Resulting Agency Comment Spec In Lab Yonathan Smith MD CHEMISTRY ORDERABLES Performing Organization Address City/[facility]/ZIP Code Phon e Number [address] POCT Glucose (08/11/2017 4:07 AM EST) athologist Signature POC Glucose 162 65 - 199 [facility] mg/dL [facility] [...] Address City/State/ZIP Code Phon e Number [address] POCT Glucose (08/10/2017 11:59 PM EST) athologist Signature POC Glucose 166 65 - 199 [place] RYAN mg/dL [facility] [...] Address City/State/[place] [address] POCT Glucose (08/10/2017 8:12 PM EST) athologist Signature POC Glucose 156 65 - 199 [facility] mg/dL [facility] Comment: [...] Address City/State/[place] [address] (ABNORMAL) POCT Glucose (08/10/2017 4:42 PM EST) P athologist Signature POC Glucose 211 (H) 65 - 199 [facility] mg/dL [facility] Comment: Supplemental [...] City/State/ZIP Code Phon e Number [place] [id number] (ABNORMAL) Differential, Automated (08/10/2017 2:30 PM EST) Patholo gist Method Time Signature Neutrophils % 87.6 % [facility] Neutr Abs (ANC) 9.90 (H) 1.70 - [facility] 6.10 [facility] x10(3)/[facility] L LABORATORY Lymphocytes % 4.3 % [facility] Lymphocytes Abs 0.5 (L) 0.9 - 3.2 [facility] x10(3)/[facility] LABORATORY Monocytes % 6.0 % [facility] Monocyte Abs 0.7 0.3 - 0.9 [facility] x10(3)/[facility] LABORATORY Eosinophils % 1.1 % [facility] Eosinophils Abs 0.1 0.0 - 0.4 [facility] x10(3)/[facility] LABORATORY Basophils % 0.4 % [facility] Basophils Abs 0.0 0.0 - 0.1 [facility] x10(3)/[facility] LABORATORY Immature Gran % 0.60 [...] [place] [address] (ABNORMAL) Hemogram (08/10/2017 2:30 PM EST) Analysis Performed At Patho logist Time Signature WBC 11.3 (H) 4.0 - 9.5 [facility] x10(3)/[facility] LABORATORY RBC 3.13 (L) 4.58 - [facility] 5.54 [facility] x10(6)/[facility] LABORATORY Hemoglobin 8.9 (L) 13.7 - [facility] 16.5 gm/dL [facility] Hematocrit 28.4 (L) 40.5 - [facility] 48.5 % [facility] MCV 90.7 82.9 - [facility] 93.1 [facility] LABORATORY MCH 28.4 27.5 - [facility] 32.1 pg [facility] MCHC 31.3 (L) 32.0 - [facility] 35.7 gm/dL [facility] Platelets 213 145 - 357 [facility] x10(3)/[facility] LABORATORY RDWSD 53.7 (H) 36.0 - [facility] 45.0 [facility] LABORATORY RDWCV 16.4 (H) 11.4 - [facility] 13.8 % [facility] MPV 8.9 7.6 - 12.9 [facility] LABORATORY nRBC % Auto 0.0 % [facility]ORY nRBC Abs Auto 0.000 0.000 - [facility] 0.000 [facility] x10(3)/[facility] LABORATORY Specimen Anatomical Collection Method Collection Time Receive d Time (Source) Location / / Volume Laterality Blood specimen 08/10/2017 2:30 PM 018 2:48 (specimen) EST PM EST Resulting Agency Comment Spec In Lab Yonathan Smith MD HEMATOLOGY ORDERABLES Performing Organization Address City/State/ZIP Code Phon e Number [address] (ABNORMAL) POCT Glucose (08/10/2017 1:50 PM EST) athologist Signature POC Glucose 243 (H) 65 - 199 [facility]/dL [facility] Comment: Supplemental ranges: <140 mg/dL before meals <180 mg/dL all other times of the day Specimen Anatomical Collection Method Collection Time Receive d Time (Source) Location / / Volume Laterality Blood specimen 08/10/2017 1:50 PM 018 1:50 (specimen) EST PM EST Yonathan Smith MD POINT OF CARE TEST ORDERABLE S Performing Organization Address City/[facility]/ZIP Code Phon e Number [address] POCT Glucose (08/10/2017 11:21 AM EST) athologist Signature POC Glucose 156 65 - 199 [facility]/dL [facility] Comment: Supplemental ranges: <140 mg/dL before meals <180 mg/dL all other times of the day Specimen Anatomical Collection Method Collection Time Receive d Time (Source) Location / / Volume Laterality Blood specimen 08/10/2017 11:21 8 (specimen) AM EST 11:21 AM EST Yonathan Smith MD POINT OF CARE TEST ORDERABLE S Performing Organization Address City/[facility]/[place] [address] (ABNORMAL) Differential, Automated (08/10/2017 10:28 AM EST) [facility] Time Signature Neutrophils % 85.3 % [facility] Neutr Abs (ANC) 9.43 (H) 1.70 - [facility] 6.10 [facility] x10(3)/[facility] L LABORATORY Lymphocytes % 5.5 % [facility] Lymphocytes Abs 0.6 (L) 0.9 - 3.2 [facility] x10(3)/[facility] LABORATORY Monocytes % 5.9 % [facility] Monocyte Abs 0.6 0.3 - 0.9 [facility] x10(3)/[facility] LABORATORY Eosinophils % 2.1 % [facility] Eosinophils Abs 0.2 0.0 - 0.4 [facility] x10(3)/[facility] LABORATORY Basophils % 0.4 % [facility] Basophils Abs 0.0 0.0 - 0.1 [facility] x10(3)/[facility] LABORATORY Immature Gran % 0.80 [...] [place] [address] (ABNORMAL) Hemogram (08/10/2017 10:28 AM EST) Analysis Performed At Patho logist Time Signature WBC 11.0 (H) 4.0 - 9.5 [facility] x10(3)/[facility] LABORATORY RBC 3.02 (L) 4.58 - [facility] 5.54 [facility] x10(6)/[facility] LABORATORY Hemoglobin 8.8 (L) 13.7 - [facility] 16.5 gm/dL [facility] Hematocrit 28.1 (L) 40.5 - [facility] 48.5 % [facility] MCV 93.0 82.9 - [facility] 93.1 [facility] MCH 29.1 27.5 - [facility]BAR[facility] DAVIS 32.1 pg [facility] MCHC 31.3 (L) 32.0 - [place] DAVIS 35.7 gm/dL [facility] Platelets 207 145 - 357 [facility] x10(3)/[facility] LABORATORY RDWSD 55.3 (H) 36.0 - [place] RYAN 45.0 [facility] RDWCV 16.4 (H) 11.4 - [facility] 13.8 % [facility] MPV 9.0 7.6 - 12.9 [facility] LABORATORY nRBC % Auto 0.0 % [facility] nRBC Abs Auto 0.000 0.000 - [facility] 0.000 [facility] x10(3)/[facility] LABORATORY Specimen Anatomical Collection Method Collection Time Receive d Time (Source) Location / / Volume Laterality Blood specimen 08/10/2017 10:28 8 (specimen) AM EST 10:35 AM EST Resulting Agency Comment Spec In Lab Yonathan Smith MD HEMATOLOGY ORDERABLES Performing Organization Address City/State/[place] [address] VS Angiogram/intervention (vascular) (08/10/2017 [...] 2.5x80 5. Completion RLE angiogram 6. L [employer] angiogram 7. 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 - L [employer] angriogram demonstrated: High fe moral bifurcation over the proximal half of the femoral head. L [employer] access in the distal L [employer]. - Closure device: Mynx Technical Procedure: ?The [...] for a 45cm 5F Destination. V18 and Trent a nd QuickCross catheters were used to [...] bifurcation. Access appeared in the distal R [employer]. Closure and sheath removal was performed with [...] 2.5x80 5. Completion RLE angiogram 6. L [employer] angiogram 7. 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 - L [employer] angriogram demonstrated: High fe moral bifurcation over the proximal half of the femoral head. L [employer] access in the distal L [employer]. - Closure device: Mynx Technical Procedure: The [...] for a 45cm 5F Destination. V18 and Trent a nd QuickCross catheters were used to [...] bifurcation. Access appeared in the distal R [employer]. Closure and sheath removal was performed with [...] (ABNORMAL) Differential, Automated (08/10/2017 5:50 AM EST) [facility] gist Method Time Signature Neutrophils % 80.1 % [facility] Neutr Abs (ANC) 9.01 (H) 1.70 - [facility] 6.10 [facility] x10(3)/[facility] LABORATORY Lymphocytes % 8.8 % [facility] Lymphocytes Abs 1.0 0.9 - 3.2 [facility] x10(3)/[facility] LABORATORY Monocytes % 8.3 % [facility] Monocyte Abs 0.9 0.3 - 0.9 [facility] x10(3)/[facility] LABORATORY Eosinophils % 2.0 % [facility] Eosinophils Abs 0.2 0.0 - 0.4 [facility] x10(3)/[facility] LABORATORY Basophils % 0.4 % [facility] Basophils Abs 0.0 0.0 - 0.1 [facility] x10(3)/[facility] LABORATORY Immature Gran % 0.40 [...] [place] [address] (ABNORMAL) Hemogram (08/10/2017 5:50 AM EST) Analysis Performed At Patho logist Time Signature WBC 11.3 (H) 4.0 - 9.5 [facility](3)/[facility] LABORATORY RBC 3.15 (L) 4.58 - [facility] 5.54 [facility] x10(6)/[facility] LABORATORY Hemoglobin 8.9 (L) 13.7 - [facility] 16.5 gm/dL [facility] Hematocrit 29.0 (L) 40.5 - [facility] 48.5 % [facility] MCV 92.1 82.9 - [facility] 93.1 [facility] LABORATORY MCH 28.3 27.5 - [facility] 32.1 pg [facility] MCHC 30.7 (L) 32.0 - [facility] 35.7 gm/dL [facility] Platelets 231 145 - 357 [facility] x10(3)/[facility] LABORATORY RDWSD 53.9 (H) 36.0 - [facility] 45.0 [facility] LABORATORY RDWCV 16.2 (H) 11.4 - [facility] 13.8 % [facility] MPV 8.7 7.6 - 12.9 [facility] LABORATORY nRBC % Auto 0.0 % [facility] nRBC Abs Auto 0.000 0.000 - [facility] 0.000 [facility] x10(3)/[facility] LABORATORY Specimen Anatomical Collection Method Collection Time Receive d Time (Source) Location / / Volume Laterality Blood specimen 08/10/2017 5:50 AM 018 5:59 (specimen) EST AM EST Resulting Agency Comment Spec In Lab Yonathan Smith MD HEMATOLOGY ORDERABLES Performing Organization Address City/State/[place] [address] (ABNORMAL) Basic Metabolic Panel (non-fasting) (08/10/2017 5:50 AM EST) athologist Signature Glucose Lvl 135 65 - 199 [facility] mg/dL [facility] Comment: Diabetes: [...] or in patients with acute kidney failure. [email or web address] [email or web address] Specimen Anatomical Collection Method Collection Time Receive d Time (Source) Location / / Volume Laterality Blood specimen 08/10/2017 5:50 AM 018 5:59 (specimen) EST AM EST Resulting Agency Comment Spec In Lab Yonathan Smith MD CHEMISTRY ORDERABLES Performing Organization Address City/[facility]/[place] [address] (ABNORMAL) Prothrombin Time (08/10/2017 [...] Smith MD HEMATOLOGY ORDERABLES Performing Organization Address City/[facility]/[place] [address] (ABNORMAL) POCT Glucose (08/10/2017 4:01 AM EST) athologist Signature POC Glucose 206 (H) 65 - 199 [facility] mg/dL [facility] Comment: Supplemental [...] Address City/[facility]/ZIP [place] [address] POCT Glucose (08/10/2017 2:01 AM EST) athologist Signature POC Glucose 188 65 - 199 [place] [facility] mg/dL [facility] [...] Address City/State/[place] [address] (ABNORMAL) POCT Glucose (08/09/2017 11:42 PM EST) athologist Signature POC Glucose 283 (H) 65 - 199 [facility]/dL [facility] Comment: Supplemental ranges: <140 mg/dL before meals <180 mg/dL all other times of the day Specimen Anatomical Collection Method Collection Time Receive d Time (Source) Location / / Volume Laterality Blood specimen 08/09/2017 11:42 8 (specimen) PM EST 11:42 PM EST Yonathan Smith MD POINT OF CARE TEST ORDERABLE S Performing Organization Address City/State/[place] [address] POCT Glucose (08/09/2017 8:55 PM EST) athologist Signature POC Glucose 182 65 - 199 [facility] mg/dL [facility] [...] Address City/State/[place] [address] (ABNORMAL) APTT (08/09/2017 6:42 [...] Smith MD HEMATOLOGY ORDERABLES Performing Organization Address City/[facility]/ZIP [facility] Phon e Number [address] POCT Glucose (08/09/2017 4:41 PM EST) athologist Signature POC Glucose 195 65 - 199 [facility] mg/dL [facility] Comment: Supplemental ranges: <140 mg/dL before meals <180 mg/dL all other times of the day Specimen Anatomical Collection Method Collection Time Receive d Time (Source) Location / / Volume Laterality Blood specimen 08/09/2017 4:41 PM 018 4:41 (specimen) EST PM EST Yonathan Smith MD POINT OF CARE TEST ORDERABLE S Performing Organization Address City/[facility]/[place] [address] POCT Glucose (08/09/2017 12:29 PM EST) athologist Signature POC Glucose 140 65 - 199 [facility] mg/dL [facility] Comment: Supplemental ranges: <140 mg/dL before meals <180 mg/dL all other times of the day Specimen Anatomical Collection Method Collection Time Receive d Time (Source) Location / / Volume Laterality Blood specimen 08/09/2017 12:29 8 (specimen) PM EST 12:29 PM EST Yonathan Smith MD POINT OF CARE TEST ORDERABLE S Performing Organization Address City/State/[place] [address] POCT Glucose (08/09/2017 9:59 AM EST) P athologist Signature POC Glucose 135 65 - 199 [facility] mg/dL [facility] Comment: Supplemental [...] Address City/[facility]/[place] [address] Specimen to Pathology (08/09/2017 [...] Address City/[facility]/[place] [address] Surgical Pathology Report (08/09/2017 8:40 AM EST) Component Value Ref Test Analysis Performed At Patholo gist Range Method Time Signature Surgical [id number] ? Location[facility]; [facility]; A [facility] Report The [...] ??-[facility] Dept. of [place]ology, [place], [place] CLINICAL INFORMATION Specimen Submitted: A - [...] [place] [address] Anaerobic Culture (08/09/2017 8:30 AM EST) [facility] gist Method Time Signature Anaerobic No anaerobic [facility] Culture organisms [facility] LABORATORY Specimen Anatomical Collection Method Collection [...] Address City/State/[place] [address] [facility] (ABNORMAL) Abscess/Wound Aspirate Culture (08/09/2017 8:30 AM EST) Patholo gist Method Time Signature Abscess/Wound Moderate mixed [place] Aspirate bacterial [place] Culture morphotypes [facility] normal LABORATORY cutaneous leroy (A) Gram Stain Rare White Blood Cells [place] Few Gram Positive Cocci in pairs [place] () [facility] Organism Gram Positive [place] Cocci in pairs [place] () [facility] Specimen Anatomical Collection Method [...] Address City/[facility]/ZIP Code Phon e Number [address] POCT Glucose (08/09/2017 4:28 AM EST) P athologist Signature POC Glucose 128 65 - 199 [facility]dL [facility] Comment: Supplemental ranges: <140 mg/dL before meals <180 mg/dL all other times of the day Specimen Anatomical Collection Method Collection Time Receive d Time (Source) Location / / Volume Laterality Blood specimen 08/09/2017 4:28 AM 018 4:28 (specimen) EST AM EST Yonathan Smith MD POINT OF CARE TEST ORDERABLE S Performing Organization Address City/[facility]/[place] [address] ABORH Recheck Status (08/09/2017 1:10 AM EST) [facility] gist Method Time Signature ABORH Type Completed [facility] LABORATORY Specimen Anatomical Collection Method Collection Time Receive d Time (Source) Location / / Volume Laterality Blood specimen 08/09/2017 1:10 AM 018 1:35 (specimen) EST AM EST Resulting Agency Comment Spec In Lab Yonathan Smith MD BLOOD BANK ORDERABLES Performing Organization Address City/[facility]/[place] [address] Antibody screen (08/09/2017 1:10 AM EST) [facility] Method Time Signature Ab Screen Negative [facility] LABORATORY Expires at 08/12/2017 [facility] [id number] on: [facility] Specimen Anatomical Collection Method Collection Time Receive d Time (Source) Location / / Volume Laterality Blood specimen 08/09/2017 1:10 AM 018 1:35 (specimen) EST AM EST Resulting Agency Comment Spec In Lab Yonathan Smith MD BLOOD BANK ORDERABLES Performing Organization Address City/[facility]/[place] [address] ABO/Rh Typing (08/09/2017 1:10 AM EST) P athologist Signature ABORh Type O Pos [facility] LABORATORY Specimen Anatomical Collection Method Collection Time Receive d Time (Source) Location / / Volume Laterality Blood specimen 08/09/2017 1:10 AM 018 1:35 (specimen) EST AM EST Resulting Agency Comment Spec In Lab Yonathan Smith MD BLOOD BANK ORDERABLES Performing Organization Address City/[facility]/[place] [address] (ABNORMAL) APTT (08/09/2017 1:10 [...] [place] [address] (ABNORMAL) Differential, Automated (08/09/2017 1:10 AM EST) [facility] gist Method Time Signature Neutrophils % 76.2 % [facility] LABORATORY Neutr Abs (ANC) 8.59 (H) 1.70 - [facility] 6.10 [facility] x10(3)/[facility] LABORATORY Lymphocytes % 11.0 % [facility] LABORATORY Lymphocytes Abs 1.2 0.9 - 3.2 [facility] x10(3)/[facility] LABORATORY Monocytes % 8.4 % [facility] LABORATORY Monocyte Abs 1.0 (H) 0.3 - 0.9 [facility] x10(3)/[facility] LABORATORY Eosinophils % 3.5 % [facility] LABORATORY Eosinophils Abs 0.4 0.0 - 0.4 [facility] x10(3)/[facility] LABORATORY Basophils % 0.5 % [facility] LABORATORY Basophils Abs 0.1 0.0 - 0.1 [facility] x10(3)/[facility] LABORATORY Immature Gran % 0.40 [...] [place] [address] (ABNORMAL) Hemogram (08/09/2017 1:10 AM EST) Analysis Performed At Patho logist Time Signature WBC 11.3 (H) 4.0 - 9.5 [facility] x10(3)/[facility] LABORATORY RBC 3.47 (L) 4.58 - [facility] 5.54 [facility] x10(6)/[facility] LABORATORY Hemoglobin 10.0 (L) 13.7 - [facility] 16.5 gm/dL [facility] Hematocrit 31.9 (L) 40.5 - [facility] 48.5 % [facility] MCV 91.9 82.9 - [facility] 93.1 [facility] LABORATORY MCH 28.8 27.5 - [facility] 32.1 pg [facility] MCHC 31.3 (L) 32.0 - [facility] 35.7 gm/dL [facility] Platelets 234 145 - 357 [facility] x10(3)/[facility] LABORATORY RDWSD 54.0 (H) 36.0 - [facility] 45.0 [facility] LABORATORY RDWCV 16.2 (H) 11.4 - [facility] 13.8 % [facility] LABORATORY MPV 8.7 7.6 - 12.9 [facility] LABORATORY nRBC % Auto 0.0 % [facility] LABORATORY nRBC Abs Auto 0.000 0.000 - [facility] 0.000 [facility] x10(3)/[facility] LABORATORY Specimen Anatomical Collection Method Collection Time Receive d Time (Source) Location / / Volume Laterality Blood specimen 08/09/2017 1:10 AM 018 1:19 (specimen) EST AM EST Resulting Agency Comment Spec In Lab Yonathan Smith MD HEMATOLOGY ORDERABLES Performing Organization Address City/State/[place] [address] (ABNORMAL) Prothrombin Time (08/09/2017 [...] City/State/ZIP Code Phon e Number [place] [id number] (ABNORMAL) Basic Metabolic Panel (non-fasting) (08/09/2017 1:10 AM EST) athologist Signature Glucose Lvl 108 65 - 199 [facility] mg/dL [facility] Comment: Diabetes: [...] or in patients with acute kidney failure. [email or web address]/DHnkdep [email or web address] Newsletter/DHnkf Specimen Anatomical Collection Method Collection Time Receive d Time (Source) Location / / Volume Laterality Blood specimen 08/09/2017 1:10 AM 018 1:19 (specimen) EST AM EST Resulting Agency Comment Spec In Lab Yonathan Smith MD CHEMISTRY ORDERABLES Performing Organization Address City/[facility]/ZIP Code Phon e Number [address] POCT Glucose (08/09/2017 12:05 AM EST) athologist Signature POC Glucose 128 65 - 199 [facility] mg/dL [facility] Comment: Supplemental ranges: <140 mg/dL before meals <180 mg/dL all other times of the day Specimen Anatomical Collection Method Collection Time Receive d Time (Source) Location / / Volume Laterality Blood specimen 08/09/2017 12:05 8 (specimen) AM EST 12:05 AM EST Yonathan Smith MD POINT OF CARE TEST ORDERABLE S Performing Organization Address City/[facility]/[place] [address] (ABNORMAL) POCT Glucose (08/08/2017 7:36 PM EST) athologist Signature POC Glucose 215 (H) 65 - 199 [facility] mg/dL [facility] Comment: Supplemental ranges: <140 mg/dL before meals <180 mg/dL all other times of the day Specimen Anatomical Collection Method Collection Time Receive d Time (Source) Location / / Volume Laterality Blood specimen 08/08/2017 7:36 PM 018 7:36 (specimen) EST PM EST Yonathan Smith MD POINT OF CARE TEST ORDERABLE S Performing Organization Address City/[facility]/[place] [address] (ABNORMAL) POCT Glucose (08/08/2017 6:23 PM EST) athologist Signature POC Glucose 216 (H) 65 - 199 [facility] mg/dL [facility] Comment: Supplemental ranges: <140 mg/dL before meals <180 mg/dL all other times of the day Specimen Anatomical Collection Method Collection Time Receive d Time (Source) Location / / Volume Laterality Blood specimen 08/08/2017 6:23 PM 018 6:23 (specimen) EST PM EST Yonathan Smith MD POINT OF CARE TEST ORDERABLE S Performing Organization Address [facility]/[place] [address] (ABNORMAL) APTT (08/08/2017 6:00 [...] Smith MD HEMATOLOGY ORDERABLES Performing Organization Address City/[facility]/[place] [address] POCT Glucose (08/08/2017 4:42 PM EST) athologist Signature POC Glucose 78 65 - 199 [facility] mg/dL [facility] Comment: [...] Address City/State/[place] [address] (ABNORMAL) POCT Glucose (08/08/2017 4:01 PM EST) P athologist Signature POC Glucose 58 (L) 65 - 199 [facility] mg/dL [facility] Comment: Supplemental ranges: <140 mg/dL before meals <180 mg/dL all other times of the day Specimen Anatomical Collection Method Collection Time Receive d Time (Source) Location / / Volume Laterality Blood specimen 08/08/2017 4:01 PM 018 4:01 (specimen) EST PM EST Yonathan Smith MD POINT OF CARE TEST ORDERABLE S Performing Organization Address City/State/[place] [address] POCT Glucose (08/08/2017 11:51 AM EST) P athologist Signature POC Glucose 90 65 - 199 [facility] mg/dL [facility] Comment: Supplemental ranges: <140 mg/dL before meals <180 mg/dL all other times of the day Specimen Anatomical Collection Method Collection Time Receive d Time (Source) Location / / Volume Laterality Blood specimen 08/08/2017 11:51 8 (specimen) AM EST 11:51 AM EST Yonathan Smith MD POINT OF CARE TEST ORDERABLE S Performing Organization Address City/State/ZIP Code Phon e Number [address] (ABNORMAL) APTT (08/08/2017 10:27 [...] Smith MD HEMATOLOGY ORDERABLES Performing Organization Address City/[facility]/ZIP Code Phon e Number [address] POCT Glucose (08/08/2017 8:02 AM EST) athologist Signature POC Glucose 178 65 - 199 [facility] mg/dL [facility] Comment: Supplemental [...] Address City/[facility]/[place] [address] (ABNORMAL) APTT (08/08/2017 4:51 AM EST) athologist Signature PTT >160 25 - 35 [facility] (Critical) sec [facility] Comment: Called by: HOWARD, Read [...] Address City/State/ZIP Code [place] [address] (ABNORMAL) Differential, Automated (08/08/2017 4:51 AM EST) [facility] Method Time Signature Neutrophils % 77.9 % [facility] LABORATORY Neutr Abs (ANC) 8.17 (H) 1.70 - [facility] 6.10 [facility] x10(3)/[facility] LABORATORY Lymphocytes % 10.3 % [facility] LABORATORY Lymphocytes Abs 1.1 0.9 - 3.2 [facility] x10(3)/[facility] LABORATORY Monocytes % 7.0 % [facility] LABORATORY Monocyte Abs 0.7 0.3 - 0.9 [facility] x10(3)/[facility] LABORATORY Eosinophils % 3.6 % [facility] LABORATORY Eosinophils Abs 0.4 0.0 - 0.4 [facility] x10(3)/[facility] LABORATORY Basophils % 0.5 % [facility] LABORATORY Basophils Abs 0.0 0.0 - 0.1 [facility] x10(3)/[facility] LABORATORY Immature Gran % 0.70 [...] [place] [address] (ABNORMAL) Hemogram (08/08/2017 4:51 AM EST) Analysis Performed At Patho logist Time Signature WBC 10.5 (H) 4.0 - 9.5 [facility] x10(3)/[facility] LABORATORY RBC 3.27 (L) 4.58 - [place] [facility]AN 5.54 [facility] x10(6)/[facility] LABORATORY Hemoglobin 9.3 (L) 13.7 - [facility] 16.5 gm/dL [facility] Hematocrit 30.3 (L) 40.5 - [facility] 48.5 % [facility] MCV 92.7 82.9 - [facility] 93.1 [facility] LABORATORY MCH 28.4 27.5 - [place] [facility] 32.1 pg [facility] MCHC 30.7 (L) 32.0 - [facility] 35.7 gm/dL [facility] Platelets 252 145 - 357 [facility] x10(3)/[facility] LABORATORY RDWSD 54.6 (H) 36.0 - [facility] 45.0 [facility] LABORATORY RDWCV 16.2 (H) 11.4 - [facility] 13.8 % [facility] LABORAT[facility] MPV 9.1 7.6 - 12.9 [facility] LABORATORY nRBC % Auto 0.0 % [facility] LABORATORY nRBC Abs Auto 0.000 0.000 - [facility] 0.000 [facility] x10(3)/[facility] LABORATORY Specimen Anatomical Collection Method Collection Time Receive d Time (Source) Location / / Volume Laterality Blood specimen 08/08/2017 4:51 AM 018 5:14 (specimen) EST AM EST Resulting Agency Comment Spec In Lab Yonathan Smith MD HEMATOLOGY ORDERABLES Performing Organization Address City/State/ZIP Code Phon e Number [place] [id number] (ABNORMAL) Prothrombin Time (08/08/2017 [...] [place] [address] (ABNORMAL) Basic Metabolic Panel (non-fasting) (08/08/2017 4:51 AM EST) athologist Signature Glucose Lvl 229 (H) 65 - 199 [facility] mg/dL [facility] Comment: Diabetes: [...] or in patients with acute kidney failure. http://[employer] Newsletter/DHnkdep http://[employer] Newsletter/DHMCnkf Specimen Anatomical Collection Method Collection Time Receive d Time (Source) Location / / Volume Laterality Blood specimen 08/08/2017 4:51 AM 018 5:14 (specimen) EST AM EST Resulting Agency Comment Spec In Lab Yonathan Smith MD CHEMISTRY ORDERABLES Performing Organization Address City/[facility] Phon e Number [address] POCT Glucose (08/08/2017 4:20 AM EST) athologist Signature POC Glucose 193 65 - 199 [facility] mg/dL [facility] Comment: Supplemental ranges: <140 mg/dL before meals <180 mg/dL all other times of the day Specimen Anatomical Collection Method Collection Time Receive d Time (Source) Location / / Volume Laterality Blood specimen 08/08/2017 4:20 AM 018 4:20 (specimen) EST AM EST Yonathan Smith MD POINT OF CARE TEST ORDERABLE S Performing Organization Address City/[facility]/ZIP Code Phon e Number [address] POCT Glucose (08/07/2017 11:11 PM EST) P athologist Signature POC Glucose 124 65 - 199 [facility] mg/dL [facility] Comment: Supplemental ranges: <140 mg/dL before meals <180 mg/dL all other times of the day Specimen Anatomical Collection Method Collection Time Receive d Time (Source) Location / / Volume Laterality Blood specimen 08/07/2017 11:11 8 (specimen) PM EST 11:11 PM EST Yonathan Smith MD POINT OF CARE TEST ORDERABLE S Performing Organization Address City/[facility]/[place] [address] (ABNORMAL) APTT (08/07/2017 10:18 [...] Smith MD HEMATOLOGY ORDERABLES Performing Organization Address [facility]/[place] [address] POCT Glucose (08/07/2017 8:10 PM EST) athologist Signature POC Glucose 140 65 - 199 [facility] mg/dL [facility] Comment: Supplemental ranges: <140 mg/dL before meals <180 mg/dL all other times of the day Specimen Anatomical Collection Method Collection Time Receive d Time (Source) Location / / Volume Laterality Blood specimen 08/07/2017 8:10 PM 018 8:10 (specimen) EST PM EST Yonathan Smith MD POINT OF CARE TEST ORDERABLE S Performing Organization Address City/[facility]/ZIP Code Phon e Number [address] POCT Glucose (08/07/2017 5:27 PM EST) athologist Signature POC Glucose 187 65 - 199 [facility] mg/dL [facility] Comment: Supplemental ranges: <140 mg/dL before meals <180 mg/dL all other times of the day Specimen Anatomical Collection Method Collection Time Receive d Time (Source) Location / / Volume Laterality Blood specimen 08/07/2017 5:27 PM 018 5:27 (specimen) EST PM EST Yonathan Smith MD POINT OF CARE TEST ORDERABLE S Performing Organization Address City/[facility]/ZIP Code Phon e Number [address] POCT Glucose (08/07/2017 3:29 PM EST) athologist Signature POC Glucose 86 65 - 199 [facility] mg/dL [facility] Comment: Supplemental ranges: <140 mg/dL before meals <180 mg/dL all other times of the day Specimen Anatomical Collection Method Collection Time Receive d Time (Source) Location / / Volume Laterality Blood specimen 08/07/2017 3:29 PM 018 3:29 (specimen) EST PM EST Yonathan Smith MD POINT OF CARE TEST ORDERABLE S Performing Organization Address [facility] [place] [address] (ABNORMAL) APTT (08/07/2017 2:50 [...] Smith MD HEMATOLOGY ORDERABLES Performing Organization Address City/[facility]/ZIP [facility] [place] [address] (ABNORMAL) POCT Glucose (08/07/2017 2:23 PM EST) athologist Signature POC Glucose 55 (L) 65 - 199 [facility] mg/dL [facility] Comment: Supplemental ranges: <140 mg/dL before meals <180 mg/dL all other times of the day Specimen Anatomical Collection Method Collection Time Receive d Time (Source) Location / / Volume Laterality Blood specimen 08/07/2017 2:23 PM 018 2:23 (specimen) EST PM EST Yonathan Smith MD POINT OF CARE TEST ORDERABLE S Performing Organization Address City/State/ZIP Code Phon e Number [address] POCT Glucose (08/07/2017 12:08 PM EST) P athologist Signature POC Glucose 77 65 - 199 [facility] mg/dL [facility] Comment: Supplemental [...] Address City/State/[place] [address] (ABNORMAL) Differential, Automated (08/07/2017 7:30 AM EST) Patholo gist Method Time Signature Neutrophils % 73.8 % [facility] LABORATORY Neutr Abs (ANC) 7.17 (H) 1.70 - [facility] 6.10 [facility] x10(3)/[facility] LABORATORY Lymphocytes % 12.2 % [facility] LABORATORY Lymphocytes Abs 1.2 0.9 - 3.2 [facility] x10(3)/[facility] LABORATORY Monocytes % 9.0 % [facility] LABORATORY Monocyte Abs 0.9 0.3 - 0.9 [facility] x10(3)/[facility] LABORATORY Eosinophils % 3.9 % [facility] LABORATORY Eosinophils Abs 0.4 0.0 - 0.4 [facility] x10(3)/[facility] LABORATORY Basophils % 0.6 % [facility] LABORATORY Basophils Abs 0.1 0.0 - 0.1 [facility] x10(3)/[facility] LABORATORY Immature Gran % 0.50 [...] [place] [address] (ABNORMAL) Hemogram (08/07/2017 7:30 AM EST) Analysis Performed At Patho logist Time Signature WBC 9.7 (H) 4.0 - 9.5 [facility] x10(3)/[facility] LABORATORY RBC 3.54 (L) 4.58 - [facility] 5.54 [facility] x10(6)/[facility] LABORATORY Hemoglobin 9.9 (L) 13.7 - [facility] 16.5 gm/dL [facility] Hematocrit 32.3 (L) 40.5 - [facility] 48.5 % [facility] MCV 91.2 82.9 - [facility] 93.1 [facility] LABORATORY MCH 28.0 27.5 - [facility] 32.1 pg [facility] MCHC 30.7 (L) 32.0 - [facility] 35.7 gm/dL [facility] Platelets 312 145 - 357 [facility] x10(3)/[facility] LABORATORY RDWSD 53.2 (H) 36.0 - [facility] 45.0 [facility] RDWCV 16.0 (H) 11.4 - [facility] 13.8 % [facility] LABORAT[facility] MPV 8.9 7.6 - 12.9 [facility] LABORATORY nRBC % Auto 0.0 % [facility] LABORATORY nRBC Abs Auto 0.000 0.000 - [facility] 0.000 [facility] x10(3)/[facility] LABORATORY Specimen Anatomical Collection Method Collection Time Receive d Time (Source) Location / / Volume Laterality Blood specimen 08/07/2017 7:30 AM 018 7:45 (specimen) EST AM EST Resulting Agency Comment Spec In Lab Yonathan Smith MD HEMATOLOGY ORDERABLES Performing Organization Address City/State/[place] [address] (ABNORMAL) Basic Metabolic Panel (non-fasting) (08/07/2017 7:30 AM EST) P athologist Signature Glucose Lvl 80 65 - 199 [facility] mg/dL [facility] Comment: Diabetes: [...] or in patients with acute kidney failure. [email or web address]/DHnkdep [email or web address] Specimen Anatomical Collection Method Collection Time Receive d Time (Source) Location / / Volume Laterality Blood specimen 08/07/2017 7:30 AM 018 7:45 (specimen) EST AM EST Resulting Agency Comment Spec In Lab Yonathan Smith MD CHEMISTRY ORDERABLES Performing Organization Address City/[facility]/ZIP Code Phon e Number [address] POCT Glucose (08/07/2017 7:27 AM EST) athologist Signature POC Glucose 81 65 - 199 [facility] mg/dL [facility] Comment: Supplemental [...] Address City/[facility]/ZIP Code Phon e Number [address] APTT (08/07/2017 7:04 AM [...] Smith MD HEMATOLOGY ORDERABLES Performing Organization Address City/[facility]/ZIP Code Phon e Number [address] (ABNORMAL) Prothrombin Time (08/07/2017 [...] Address City/State/ZIP Code Phon e Number [address] POCT Glucose (08/07/2017 4:03 AM EST) athologist Signature POC Glucose 93 65 - 199 [facility] mg/dL [facility] Comment: Supplemental ranges: <140 mg/dL before meals <180 mg/dL all other times of the day Specimen Anatomical Collection Method Collection Time Receive d Time (Source) Location / / Volume Laterality Blood specimen 08/07/2017 4:03 AM 018 4:03 (specimen) EST AM EST Yonathan Smith MD POINT OF CARE TEST ORDERABLE S Performing Organization Address City/State/ZIP Code Phon e Number [address] POCT Glucose (08/07/2017 12:04 AM EST) athologist Signature POC Glucose 107 65 - 199 [facility] mg/dL [facility] Comment: Supplemental ranges: <140 mg/dL before meals <180 mg/dL all other times of the day Specimen Anatomical Collection Method Collection Time Receive d Time (Source) Location / / Volume Laterality Blood specimen 08/07/2017 12:04 8 (specimen) AM EST 12:04 AM EST Yonathan Smith MD POINT OF CARE TEST ORDERABLE S Performing Organization Address City/State/ZIP Code Phon e Number [address] POCT Glucose (08/06/2017 7:56 PM EST) P athologist Signature POC Glucose 178 65 - 199 [facility] mg/dL [facility] Comment: Supplemental ranges: <140 mg/dL before meals <180 mg/dL all other times of the day Specimen Anatomical Collection Method Collection Time Receive d Time (Source) Location / / Volume Laterality Blood specimen 08/06/2017 7:56 PM 018 7:56 (specimen) EST PM EST Yonathan Smith MD POINT OF CARE TEST ORDERABLE S Performing Organization Address City/State/ZIP Code Phon e Number [address] TcPO2 (08/06/2017 2:32 PM EST) Component Value Ref Test Analysis Performed At Patholo gist Range Method Time Signature VB Text Department: Vascular Surgery Lab VASCUBASE Report Patient: [id number] (GREGORY HOANG) CPT: 4734920 ICD10: I99.8 Referring Physician: YONATHAN SMITH ?? [...]
Routine documented in this encounter Care Teams Custody Assistant Relationship Specialty Start Date End Date Lovely Vicente MD PCP - General 04/16/[address] [place] [address] documented as of this encounter
--- OUTSIDE RECORDS SUMMARY | 2022-04-08 08:51 | XMS_ITS | Encounter Summary ---
:1945 Author Organization [facility] [place] [address] Care Team Providers Name Role Phone Lovely Vicente MD Primary Care Provider Encounter Details Date Type Department Care Team Description 08/09/2017 Clinical Support Same Day at [facility] Canceled (D-SCHED ERROR [facility] / CORRECT ION ) [place] [address] Social History Tobacco Use Types Packs/Day [...] Zulma Dolan MD [facility] er [place], [place] [address] (Wo rk) 05/28/2022 Laboratory Appointment Lab 05/28/2022 Office Visit Cardiology Zulma Dolan MD [facility] [place] [address] Liz Poole PA [facility] [place] [address] 06/10/2022 Office Visit Dermatology Laura Scherer MD [facility] DR TE[address]-DERMAT [place], [place] [address] (Wo rk) documented as of this encounter Procedures Procedure Name Priority Date/Time Associated Diagnosis Comme nts SEDIMENT REMEDIATION CONSULTANT 08/09/2017 12:00 AM Resul ts for this SCAN EST procedure are i n the results section. documented in this encounter Results SCAN DOC: SEDIMENT REMEDIATION CONSULTANT (08/09/2017 12:00 AM EST) Narrative 08/09/2017 12:00 AM EST This result has an attachment that is no t available. Ordered by an unspecified provider. Scanning Provider MEDIA MGR SCAN EXT ORDR/RSLT documented in this encounter Visit Diagnoses Not on filedocumented in this encounter Care Teams Manual Plate Filler Relationship Specialty Start Date End Date Lovely Vicente MD PCP - General 04/16/[address] [place] [address] documented as of this encounter
--- OUTSIDE RECORDS SUMMARY | 2022-04-08 08:51 | XMS_ITS | Encounter Summary ---
:1945 Author Organization [facility] [place] [address] Care Team Providers Name Role Phone Lovely Vicente MD Primary Care Provider Reason for Visit Auth/Cert Specialty Diagnoses / Procedures Referred By Contact Refer red To Contact Diagnoses Critical lower limb ischemia CELLULITIS RT FOOT Procedures EMERGENCY Referral ID Status Reason Start Date Expiration Date Visits Requ ested Visits Authorized [id number] 1 1 Encounter Details Date Type Department Care Team Description 08/06/2017 Laboratory Appointment Lab at [facility] Ischemia of foot [facility] [place] [address] Social History Tobacco Use Types Packs/Day [...] Dolan MD [facility] er [place] [address] (Wo rk) 05/28/2022 Laboratory Appointment Lab 05/28/2022 Office Visit Cardiology Zulma Dolan MD [facility] [place] [address] Liz Poole PA [facility] [place] [address] 06/10/2022 Office Visit Dermatology Laura Scherer MD [facility] ER DR [address]-DERMAT [facility] [place] [place] [address] (Wo rk) documented as of [...] Signature Prealbumin 19 (L) 20 - 40 [facility] mg/dL [facility] LABORATORY Comment: Prealbumin levels are generally [...] Organization Address City/State/[place] [address] (ABNORMAL) Basic Metabolic Panel (non-fasting) (08/06/2017 12:32 PM EST) P athologist Signature Glucose Lvl 92 65 - 199 [facility] mg/dL [facility] LABORATORY Comment: Diabetes: >=200 mg/dL plus [...] or in patients with acute kidney failure. [email or web address] Specimen Anatomical Collection Method Collection Time Receive d Time (Source) Location / / Volume Laterality Blood specimen 08/06/2017 12:32 8 1:15 (specimen) PM EST PM EST Resulting Agency Comment Spec In Lab Arik Clement MD CHEMISTRY ORDERABLES Performing Organization Address City/State/[place] [address] (ABNORMAL) Hemogram (08/06/2017 12:32 PM EST) Analysis Performed At Patho logist Time Signature WBC 11.8 (H) 4.0 - 9.5 [facility] x10(3)/[facility] LABORATORY RBC 3.49 (L) 4.58 - [facility] 5.54 [facility] x10(6)/[facility] LABORATORY Hemoglobin 9.9 (L) 13.7 - [facility] 16.5 gm/dL [facility] LABORATORY Hematocrit 32.0 (L) 40.5 - [facility] 48.5 % [facility] LABORATORY MCV 91.7 82.9 - [facility] 93.1 [facility] LABORATORY MCH 28.4 27.5 - KATALINA DAVIS 32.[address] [facility] LABORATORY MCHC 30.9 (L) 32.0 - [facility] DAV[facility] 35.7 gm/dL [facility] LABORATORY Platelets 326 145 - 357 [facility] x10(3)/[facility] LABORATORY RDWSD 53.4 (H) 36.0 - [facility] DAVIS 45.0 [facility] LABORATORY RDWCV 16.0 (H) 11.4 - [facility] RYAN 13.8 % [facility] LABORATORY MPV 9.1 7.6 - 12.9 [facility] LABORATORY nRBC % Auto 0.0 % [facility] LABORATORY nRBC Abs Auto 0.000 0.000 - [facility] DAVIS 0.000 [facility] x10(3)/[facility] LABORATORY Specimen Anatomical Collection Method Collection Time Receive d Time (Source) Location / / Volume Laterality Blood specimen 08/06/2017 12:32 8 1:15 (specimen) PM EST PM EST Resulting Agency Comment Spec In Lab Arik Clement MD HEMATOLOGY ORDERABLES Performing Organization Address City/State/ZIP Code Phon e Number [place] [phone] documented in this encounter Visit Diagnoses Diagnosis Ischemia of foot Unspecified circulatory system disorder documented in this encounter Care Teams Reliability Manager Relationship Specialty Start Date End Date Lovely Vicente MD PCP - General 04/16/[address] [place] [address] documented as of this encounter
--- OUTSIDE RECORDS SUMMARY | 2022-04-08 08:51 | XMS_ITS | Encounter Summary ---
:1945 Author Organization [facility] [place] [address] Care Team Providers Name Role Phone Lovely Vicente MD Primary Care Provider Reason for Visit Auth/Cert Specialty Diagnoses / Procedures Referred By Contact Refer red To Contact Diagnoses Critical lower limb ischemia CELLULITIS RT FOOT Procedures EMERGENCY Referral ID Status Reason Start Date Expiration Date Visits Requ ested Visits Authorized [id number] 1 1 Encounter Details Date Type Department Care Team Description 08/06/2017 Hospital En[facility] [address] Social History Tobacco Use Types Packs/Day [...] Dolan MD [facility] [place], [place] [address] (Wo rk) 05/28/2022 Laboratory Appointment Lab 05/28/2022 Office Visit Cardiology Zulma Dolan MD [facility] [place] [address] Liz Poole PA [facility] [place] [address] 06/10/2022 Office Visit Dermatology Laura Scherer MD [facility] DR [address]-DERMAT [place], [place] [address] (Wo rk) documented as of this encounter Visit Diagnoses Not on filedocumented in this encounter Care Teams Farm Reporter Relationship Specialty Start Date End Date Lovely Vicente MD PCP - General 04/16/[address] [place] [address] documented as of this encounter
--- OUTSIDE RECORDS SUMMARY | 2022-04-08 08:52 | XMS_ITS | Encounter Summary ---
:1945 Author Organization [facility] [place] [address] Care Team Providers Name Role Phone Lovely Vicente MD Primary Care Provider Encounter Details Date Type Department Care Team Description 08/04/2017 Orders Only Cardiac Surgery Makayla Wilson APRN [facility] [place] [address] CARDIAC SURGERY [phone] [place], [place] [address] (Wo rk) Social History Tobacco [...] Description 05/28/2022 Appointment Cardiology Zulma Dolan MD [facility] er [place], [place] [address] (Wo rk) 05/28/2022 Laboratory Appointment Lab 05/28/2022 Office Visit Cardiology Zulma Dolan MD [facility] [place] [address] Liz Poole PA [facility] [place] [address] 06/10/2022 Office Visit Dermatology Laura Scherer MD [facility] ER DR TEJA GR[address]DERMAT [place], [place] [address] (Wo rk) documented as of this encounter Visit Diagnoses Not on filedocumented in this encounter Care Teams Jewelry Drill Operator Relationship Specialty Start Date End Date Lovely Vicente MD PCP - General 04/16/[address] [place] [address] documented as of this encounter
--- OUTSIDE RECORDS SUMMARY | 2022-04-08 08:52 | XMS_ITS | Encounter Summary ---
:1945 Author Organization [facility] [place] [address] Care Team Providers Name Role Phone Lovely Vicente MD Primary Care Provider Reason for Visit Reason Comments Follow-up Encounter Details Date Type Department Care Team Description 07/29/2017 Office Visit Cardiac Surgery at [facility] Yuan Retana MD S/P CABG x [address] [facility] [place] [address] CARDIOTHORACIC SURGERY [phone] [place], [place] [address] (Wo rk) Social History Tobacco [...] evaluation by vascular surgery. Yuan Retana MD [phone] documented in this encounter Plan of Treatment Upcoming Encounters Date Type Specialty Care Team Description 05/28/2022 Appointment Cardiology Zulma Dolan MD [facility] er [address] [place] [address] (Wo rk) 05/28/2022 Laboratory Appointment Lab 05/28/2022 Office Visit Cardiology Zulma Dolan MD [facility] [place] [address] Liz Poole PA [facility] [place] [address] 06/10/2022 Office Visit Dermatology Laura Scherer MD [facility] ER DR [address]-DERMAT [place], [place] [address] (Wo rk) documented as of this encounter Visit Diagnoses Diagnosis S/P CABG x 3 Postsurgical aortocoronary bypass status documented in this encounter Care Teams Senior Property Manager Relationship Specialty Start Date End Date Lovely Vicente MD PCP - General 04/16/[address] [place] [address] documented as of this encounter
--- OUTSIDE RECORDS SUMMARY | 2022-04-08 08:52 | XMS_ITS | Encounter Summary ---
:1945 [place] [address] Care Team Providers Name Role Phone Lovely Vicente MD Primary Care Provider Encounter Details Date Type Department Care Team Description 07/29/2017 Telephone Pain Aurelia Crawford MD [facility] [place] [address] PAIN CLINIC [phone] [place], [place] [address] (Wo rk) Social History Tobacco [...] Care Team Description 05/28/2022 Appointment Cardiology Zulma Dloan MD [facility] [address] [place], [place] [address] (Wo rk) 05/28/2022 Laboratory Appointment Lab 05/28/2022 Office Visit Cardiology Zulma Dolan [place] [facility] [address] Liz Poole PA [facility] [place] [address] 06/10/2022 Office Visit Dermatology Laura Scherer MD [facility] DR [address]-DERMAT [place], [place] [address] (Wo rk) documented as of this encounter Visit Diagnoses Not on filedocumented in this encounter Care Teams Clinical Unit Coordinator Relationship Specialty Start Date End Date Lovely Vicente MD PCP - General 04/16/[address] [place] [address] [address] [place] [address] documented as of this encounter
--- OUTSIDE RECORDS SUMMARY | 2022-04-08 08:52 | XMS_ITS | Encounter Summary ---
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 Patient [...] performed by Manny Mcknight MD at [facility] MAIN OR ??? PRO CABG, ARTERIAL, SINGLE N/A 07/07/2017 @CABG, USING ARTERIAL GRAFT;SINGLE ARTERIAL GRAFT (WRVU 33.75) performed by Yuan Retana MD at [facility] MAIN OR ??? PRO CABG, ARTERY-VEIN, TWO N/A 07/07/2017 @CABG, TWO VENOUS GRAFTS & ARTERIAL GRAFT (WRVU 7.93) performed by Yuan Retana MD at [facility] MAIN OR ??? PRO COLONOSCOPY, REMFlash MOCK, SNARE 01/16/2014 COLONOSCOPY, POLYPECTOMY, REMOVAL LESION BY SNARE performed by Nohemi Jaimes MD at [facility] ENDOSCOPY ??? PRO ENDOSCOPY W/VIDEO-ASST VEIN HARVEST, CABG Right 07/07/2017 ENDOSCOPIC HARVEST VEIN(S) FOR CABG (WRVU 0.31) performed by Yuan Retana MD at [facility] MAIN OR ??? 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 Hank Zhang Vascular Surgery, PGY2 Pager #[phone] Associated attestation - Arik Clement MD - [...] Zulma Dolan MD [facility] [place], [place] [address] (Wo rk) 05/28/2022 Laboratory Appointment Lab 05/28/2022 Office Visit Cardiology Zulma Dolan MD [facility] [place] [address] Liz Poole PA [facility] [place] [address] 06/10/2022 Office Visit Dermatology Laura Scherer MD [facility] DR TEJA GR-DERMAT [place], [place] [address] (Wo rk) documented as [...] Department: Vascular Surgery Lab VASCUBASE Report Patient: [id number] (GREGORY FATIMA) CPT: 45088 ICD10: I82.541 Referring Physician: TAMIKO JIMÉNEZ ?? [...] Glucose 128 65 - [address] [facility] mg/dL [facility] LABORATORY Comment: Supplemental ranges: <140 mg/dL before meals <180 mg/dL all other times of the day Specimen Anatomical Collection Method Collection Time Receive d Time (Source) Location / / Volume Laterality Blood specimen 07/29/2017 2:28 PM 018 2:28 (specimen) EST PM EST Tamiko Jiménez MD POINT OF CARE TEST ORDERABLE S Performing Organization Address City/State/ZIP Code Phon e Number [address] (ABNORMAL) D-Dimer, Quantitative (07/29/2017 2:15 PM EST) [facility] Handango Method Time Signature D-Dimer, Quant 1,699 (H) 0 - [address] [facility] FEU ng/ml [facility] LABORATORY Comment: The D-Dimer assay is used [...] Organization Address City/State/[place] [address] (ABNORMAL) Differential, Automated (07/29/2017 2:15 PM EST) [facility] Handango Method Time Signature Neutrophils % 82.5 % [facility] LABORATORY Neutr Abs (ANC) 10.21 (H) 1.70 - [facility] 6.10 [facility] x10(3)/[facility] L LABORATORY Lymphocytes % 7.1 % [facility] LABORATORY Lymphocytes Abs 0.9 0.9 - 3.[address] [facility] x10(3)/[facility] LABORATORY Monocytes % 6.5 % [facility] LABORATORY Monocyte Abs 0.8 0.3 - 0.[address] [facility] x10(3)/[facility] LABORATORY Eosinophils % 2.7 % [facility] LABORATORY Eosinophils Abs 0.3 0.0 - 0.[address] [facility] x10(3)/[facility] LABORATORY Basophils % 0.6 % [facility] LABORATORY Basophils Abs 0.1 0.0 - 0.[address] [facility] x10(3)/[facility] LABORATORY Immature [...] Organization Address City/State/[place] [address] (ABNORMAL) Hemogram (07/29/2017 2:15 PM EST) Analysis Performed At Patho logist Time Signature WBC 12.4 (H) 4.0 - 9.[address] [facility] x10(3)/[facility] LABORATORY RBC 4.17 (L) 4.58 - [facility] 5.54 [facility] x10(6)/[facility] LABORATORY Hemoglobin 12.1 (L) 13.7 - [facility] 16.5 gm/dL [facility] LABORATORY Hematocrit 38.1 (L) 40.5 - [facility] 48.5 % [facility] LABORATORY MCV 91.4 82.9 - [facility] 93.1 [facility] LABORATORY MCH 29.0 27.5 - [facility] 32.1 pg [facility] LABORATORY MCHC 31.8 (L) 32.0 - [facility] RYAN 35.7 gm/dL [facility] LABORATORY Platelets 204 145 - [address] [facility] x10(3)/[facility] LABORATORY RDWSD 50.5 (H) 36.0 - [facility] 45.0 [facility] LABORATORY RDWCV 15.3 (H) 11.4 - [facility] RYAN 13.8 % [facility] LABORATORY MPV 9.4 7.6 - 12.9 [facility] LABORATORY nRBC % Auto 0.0 % [facility] LABORATORY nRBC Abs Auto 0.000 0.000 - [facility] 0.000 [facility] x10(3)/[facility] LABORATORY Specimen Anatomical Collection Method Collection Time Receive d Time (Source) Location / / Volume Laterality Blood specimen 07/29/2017 2:15 PM 018 2:36 (specimen) EST PM EST Resulting Agency Comment Spec In Lab Tamiko Jiménez MD HEMATOLOGY ORDERABLES Performing Organization Address City/State/[place] [address] (ABNORMAL) Prothrombin Time (07/29/2017 2:15 PM EST) P athologist Signature PT 24.4 (H) 11.8 - 14.0 [facility] LABORATORY INR 2.2 (H) 0.9 - [...] City/State/ZIP Code Phon e Number [place] [id number] HOSPITAL LAB[address]ORY Drive Arterial Duplex Leg, Unil (07/29/2017 11:50 AM EST) Component Value Ref Test Analysis Performed At [employer] Range Method Time Signature VB Text Department: Vascular Surgery Lab VASCUBASE Report Patient: [id number] (GREGORY FATIMA) CPT: 98907 ICD10: Z09;I97.610 Referring Physician: TAMIKO JIMÉNEZ ?? [...] Department: Vascular Surgery Lab VASCUBASE Report Patient: [id number] (GREGORY FATIMA) CPT: 63896 ICD10: I82.441 Referring Physician: TAMIKO JIMÉNEZ ?? [...] he calf. Notification: Marquis Pathak MD (pager #[phone]) was notif ied of the preliminary findings. [...] STAT documented in this encounter Care Teams Quality Assurance Manager Relationship Specialty Start Date End Date Lovely Vicente MD PCP - General 04/16/[address] [place] [address] [address] [place] [address] documented as of this encounter
--- OUTSIDE RECORDS SUMMARY | 2022-04-08 08:52 | XMS_ITS | Encounter Summary ---
:1945 [place] [address] Care Team Providers Name Role Phone Lovely Vicente MD Primary Care Provider Encounter Details Date Type Department Care Team Description 08/04/2017 Notes Only Pain Management at Barbra Bruno, STACIE [facility] [place] [address] [place] [address] [phone] (Wo rk) Social History Tobacco Use Types [...] bid) at this time. Barbra Soares, MSN, TIME STUDY CLERK-BC, [facility] documented in this encounter Plan of Treatment Upcoming Encounters Date Type Specialty Care Team Description 05/28/2022 Appointment Cardiology Zulma Dolan MD [facility] [place], [place] [address] (Wo rk) 05/28/2022 Laboratory Appointment Lab 05/28/2022 Office Visit Cardiology Zulma Dolan MD [facility] [place] [address] Liz Poole PA [facility] [place] [address] 06/10/2022 Office Visit Dermatology Laura Scherer MD [facility] DR [address]-DERMAT [place], [place] [address] (Wo rk) documented as of this encounter Visit Diagnoses Not on filedocumented in this encounter Care Teams Sack Sewer Machine Relationship Specialty Start Date End Date Lovely Vicente MD PCP - General 04/16/[address] [place] [address] documented as of this encounter
--- OUTSIDE RECORDS SUMMARY | 2022-04-08 08:52 | XMS_ITS | Encounter Summary ---
:1945 [place] [address] Care Team Providers Name Role Phone Lovely Vicente MD Primary Care Provider Encounter Details Date Type Department Care Team Description 08/03/2017 Hospital Encounter Radiology Library at [place], Tommy Mijares [facility] [place] [address] VASCULAR SURGERY [phone] [place], [place] [address] (Wo rk) Social History Tobacco [...] MD [facility] [place], [place] [address] (Wo rk) 05/28/2022 Laboratory Appointment Lab 05/28/2022 Office Visit Cardiology Zulma Dolan MD [facility] [place] [address] Liz Poole PA [facility] [place] [address] 06/10/2022 Office Visit Dermatology Laura Scherer MD [facility] DR [address]DERMAT [place], [place] [address] (Wo rk) documented as of [...] Time Received Time / Laterality Volume Narrative [facility] - 08/03/2017 6:03 PM EST This exam is for storage only and is aut o-finalizing. Arik Clement MD G FILM LIBRARY ORDERABLES Performing Organization Address City/State/ZIP Code Phon e Number [place], [place] documented in this encounter Visit Diagnoses Diagnosis Pain Generalized pain documented in this encounter Care Teams Asphalt Paving Superintendent Relationship Specialty Start Date End Date Lovely Vicente MD PCP - General 04/16/[address] [place] [address] documented as of this encounter
--- OUTSIDE RECORDS SUMMARY | 2022-04-08 08:52 | XMS_ITS | Encounter Summary ---
:1945 Author Organization [facility] [place] [address] Care Team Providers Name Role Phone Lovely Vicente MD Primary Care Provider Reason for Visit Auth/Cert Specialty Diagnoses / Procedures Referred By Contact Refer red To Contact Diagnoses Critical lower limb ischemia CELLULITIS RT FOOT Procedures EMERGENCY Referral ID Status Reason Start Date Expiration Date Visits Requ ested Visits Authorized [id number] 1 1 Encounter Details Date Type Department Care Team Description 08/04/2017 Laboratory Appointment Lab 3L [facility] [place] [address] Social History Tobacco Use Types Packs/Day [...] Zulma Dolan MD [facility] er [address] [place] [address] (Wo rk) 05/28/2022 Laboratory Appointment Lab 05/28/2022 Office Visit Cardiology Zulma Dolan MD [facility] [place] [address] Liz Poole PA [facility] [place] [address] 06/10/2022 Office Visit Dermatology Laura Scherer MD [facility] [address] [place], [place] [address] (Wo rk) documented as of this encounter Visit Diagnoses Not on filedocumented in this encounter Care Teams Paper Sorter Relationship Specialty Start Date End Date Lovely Vicente MD PCP - General 04/16/15 [facility] [address] [place], [place] [address] documented as of this encounter
--- OUTSIDE RECORDS SUMMARY | 2022-04-08 08:52 | XMS_ITS | Encounter Summary ---
:1945 Author Organization [facility] [place] [address] Care Team Providers Name Role Phone Lovely Vicente MD Primary Care Provider Reason for Visit Reason Onset Date Comments Other 07/22/2017 lovenox bridge Encounter Details Date Type Department Care Team Description 07/22/2017 Telephone Cardiology at [facility] Court Cadena RN Other (lovenox bridge) [place] [address] Social History Tobacco Use Types Packs/Day [...] 4:49 PM EST VAMSI Del Castillo, at [facility], called earlier today with a question re: lovenox bridge for this patient who was recently discharged from [facility] r/t a blood clot. Discharge note faxed to [facility] (fax# [phone], Ph#: [phone]) which contains instructions r/t lovenox bridge as follows: Anticoagulation: on lovenox bridge to therapeutic coumadin for AFib. Goal INR 2-3. At discharge INR=1.5. The lovenox injections can stop when INR >2, coumadin will continue indefinitely. documented in this encounter Plan of Treatment Upcoming Encounters Date Type Specialty Care Team Description 05/28/2022 Appointment Cardiology Zulma Dolan MD [facility] [place], [place] [address] (Wo rk) 05/28/2022 Laboratory Appointment Lab 05/28/2022 Office Visit Cardiology Zulma Dolan MD [facility] [place] [address] Liz Poole PA [facility] [place] [address] 06/10/2022 Office Visit Dermatology Laura Scherer MD [facility] DR [address] [place], [place] [address] (Wo rk) documented as of this encounter Visit Diagnoses Not on filedocumented in this encounter Care Teams Clinical Rehabilitation Liaison Relationship Specialty Start Date End Date Lovely Vicente MD PCP - General 04/16/15 [facility] [address] [place] [address] documented as of this encounter
--- OUTSIDE RECORDS SUMMARY | 2022-04-08 08:52 | XMS_ITS | Encounter Summary ---
:1945 Author Organization [facility] [place] [address] Care Team Providers Name Role Phone Lovely Vicente MD Primary Care Provider Encounter Details Date Type Department Care Team Description 08/04/2017 Orders Only Cardiac Surgery Makayla Wilson APRN [facility] [place] [address] CARDIAC SURGERY [phone] [place], [place] [address] (Wo rk) Social History Tobacco [...] Dolan MD [facility] er [place], [place] [address] (Wo rk) 05/28/2022 Laboratory Appointment Lab 05/28/2022 Office Visit Cardiology Zulma Dolan MD [facility] [place] [address] Liz Poole PA [facility] [place] [address] 06/10/2022 Office Visit Dermatology Laura Scherer MD [facility] ER DR [address] [place], [place] [address] (Wo rk) documented as of this encounter Visit Diagnoses Not on filedocumented in this encounter Care Teams Yardmaster Relationship Specialty Start Date End Date Lovely Vicente MD PCP - General 04/16/[address] [place] [address] documented as of this encounter
--- OUTSIDE RECORDS SUMMARY | 2022-04-08 08:52 | XMS_ITS | Encounter Summary ---
:1945 Author Organization [facility] [place] [address] Care Team Providers Name Role Phone Lovely Vicente MD Primary Care Provider Encounter Details Date Type Department Care Team Description 07/29/2017 Transcribe Orders Laboratory Lovely Vicente MD [address] [address] [place] [address] [phone] (Wo rk) Social History Tobacco Use Types [...] Zulma Dolan MD [facility] [place] [address] [place] [address] (Wo rk) 05/28/2022 Laboratory Appointment Lab 05/28/2022 Office Visit Cardiology Zulma Dolan MD [facility] [place] [address] Liz Poole PA [facility] [place] [address] 06/10/2022 Office Visit Dermatology Laura Scherer MD [facility] ER DR [address] [place], [place] [address] (Wo rk) documented as of this encounter Visit Diagnoses Not on filedocumented in this encounter Care Teams Tombstone Carver Relationship Specialty Start Date End Date Lovely Vicente MD PCP - General 04/16/[address] [place] [address] documented as of this encounter
--- OUTSIDE RECORDS SUMMARY | 2022-04-08 08:52 | XMS_ITS | Encounter Summary ---
:1945 Author Organization [facility] Address [facility] [place] [address] Care Team Providers Name Role Phone Lovely Vicente MD Primary Care Provider Encounter Details Date Type Department Care Team Description 07/29/2017 Transcribe Orders Laboratory Lovely Vicente, Coronary artery rupture; [facility] Ischemic cardiomyopathy; [facility] [address] Atherosclerosis of [place] co ronary artery, angina presence unspecified, unspecified whether [place] or transplanted heart; [place], [place] [address] Essential hypertension, malignant; [address] [place], [place] 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, unspecified senior care insulin use status [phone] [id number] Social History Tobacco Use Types Packs/Day Years [...] Dolan MD [facility] er [place], [place] [address] (Wo rk) 05/28/2022 Laboratory Appointment Lab 05/28/2022 Office Visit Cardiology Zulma Dolan MD [facility] [place] [address] Liz Poole PA [facility] [place] [address] 06/10/2022 Office Visit Dermatology Laura Scehrer MD [facility] [place] ER [address] [place], [place] [address] (Wo rk) Scheduled Orders Name Type Priority Associated Diagnoses Order S chedule Lab Use Only, Fax Lab Routine Coronary arter y rupture Expected: 07/29/2017 Request Ischemic cardiom yopathy (Approximate), Atherosclerosis of [place] Ex jose: 07/29/2018 coronary artery, angina presence unspecified, unspecified whether [place] or transplanted heart Essential hypertension, malignant documented as of this encounter Results Uric acid (08/04/2017 12:55 PM EST) P athologist Signature Uric Acid 7.1 3.5 - 8.5 [facility] mg/dL [facility] Specimen Anatomical Collection Method Collection Time Receive d Time (Source) Location / / Volume Laterality Blood specimen 08/04/2017 12:55 8 1:01 (specimen) PM EST PM EST Resulting Agency Comment Spec In Lab Lovely Vicente MD CHEMISTRY ORDERABLES Performing Organization Address City/State/[place] [address] (ABNORMAL) Hemogram (08/04/2017 12:55 PM EST) Analysis Performed At Patho logist Time Signature WBC 15.8 (H) 4.0 - 9.5 [facility] x10(3)/[facility] LABORATORY RBC 3.48 (L) 4.58 - [facility] 5.54 [facility] x10(6)/[facility] LABORATORY Hemoglobin 9.9 (L) 13.7 - [facility] 16.5 gm/dL [facility] Hematocrit 31.4 (L) 40.5 - KATALINA DAVIS 48.5 % [facility] MCV 90.2 82.9 - [facility] LABORATORY MCH 28.4 27.5 - K[place]ALINA RYAN 32.1 pg [facility] MCHC 31.5 (L) 32.0 - [place]INA ZHAORYAN 35.7 gm/dL [facility] Platelets 310 145 - 357 [facility] x10(3)/[facility] LABORATORY RDWSD 51.8 (H) 36.0 - [place]ALINA RYAN 45.0 [facility] LABORATORY RDWCV 15.8 (H) 11.4 - [facility] 13.8 % [facility] MPV 8.9 7.6 - 12.9 [facility] LABORATORY nRBC % Auto 0.0 % [facility] nRBC Abs Auto 0.000 0.000 - [facility] 0.000 [facility] x10(3)/[facility] LABORATORY Specimen Anatomical Collection Method Collection Time Receive d Time (Source) Location / / Volume Laterality Blood specimen 08/04/2017 12:55 8 1:01 (specimen) PM EST PM EST Resulting Agency Comment Spec In Lab Lovely Vicente MD HEMATOLOGY ORDERABLES Performing Organization Address City/State/ZIP Code Phon e Number [place] [id number] [address] (ABNORMAL) Comprehensive metabolic panel (non-fasting) (08/04/2017 12:55 PM EST) P athologist Signature Glucose Lvl 208 (H) 65 - 199 [facility] mg/dL [facility] Comment: Diabetes: >=200 mg/dL plus symp toms BUN 32 (H) 10 - 20 mg/dL [facility] Creatinine 1.58 (H) 0.80 - 1.50 mg/dL [facility] Sodium 136 135 - 145 mmol/L [facility] Potassium 5.5 (H) 3.5 - 5.0 mmol/L [facility] - 10.5 mg/dL [facility] Total Protein 6.9 6.1 - 8.0 gm/dL [facility] Albumin 3.4 3.2 - 5.2 gm/dL [facility] AST 20 0 - 39 unit/L [facility] ALT 21 0 - 55 unit/L [facility] Alk Phos 93 40 - 120 unit/L [facility] Total Bilirubin 0.4 0.2 - 1.3 mg/dL [facility] Estimated GFR 43 (L) >=60 [facility] Comment: The reported eGFR should be multiplied b y 1.2 for patients. The MDRD is not an appropriate measure o f renal function for patients with body mass extremes or in patients with acute kidney failure. http://[employer]/DHnkdep http://[employer]/DHMCnkf Specimen Anatomical Collection Method Collection Time Receive d Time (Source) Location / / Volume Laterality Blood specimen 08/04/2017 12:55 8 1:01 (specimen) PM EST PM EST Resulting Agency Comment Spec In Lab Lovely Vicente MD CHEMISTRY ORDERABLES Performing Organization Address City/State/[place] [address] (ABNORMAL) Hemoglobin A1c (08/04/2017 12:55 PM EST) Analysis Performed At Patho logist Time Signature Hemoglobin A1C 6.2 (H) 4.3 - 5.6 [facility] [...] Avg Gluc See note mg/dL [facility]ALINA DAVIS [facility] [...] hemoglobinopathies. Additional resources are available on [facility] ADA website. Macario HAMMOND, Ruthann J, Deysi R, et al. ??Tr anslating the A1C assay into estimated average glucose values. ??Diabetes Care 2008:31(8):1458-9213. Specimen Anatomical Collection Method Collection Time Receive d Time (Source) Location / / Volume Laterality Blood specimen 08/04/2017 12:55 8 1:01 (specimen) PM EST PM EST Resulting Agency Comment Spec In Lab Lovely Vicente MD CHEMISTRY ORDERABLES Performing Organization Address City/State/[place] [address] (ABNORMAL) Prothrombin Time (08/04/2017 12:55 PM EST) P athologist Signature PT 35.4 (H) 11.8 - 14.0 [facility] LABORATORY INR 3.5 (H) 0.9 - 1.1 [facility] [...] Organization Address City/State/[place] [address] documented in this encounter Visit Diagnoses Diagnosis Coronary artery rupture Acute myocardial infarction, unspecified site, episode of care unspecified Ischemic cardiomyopathy Other specified forms of chronic ischemi c heart disease Atherosclerosis of [place] coronary arter y, angina presence unspecified, unspecified whether [place] or transplanted heart Essential hypertension, malignant Diabetes mellitus due to underlying cond ition with diabetic nephropathy, unspecified senior care insulin use status documented in this encounter Care Teams Newcomer Hostess Relationship Specialty Start Date End Date Lovely Vicente MD PCP - General 04/16/[address] [place] [address] documented as of this encounter
--- OUTSIDE RECORDS SUMMARY | 2022-04-08 08:52 | XMS_ITS | Encounter Summary ---
:1945 [place] [address] Care Team Providers Name Role Phone Lovely Vicente MD Primary Care Provider Encounter Details Date Type Department Care Team Description 08/04/2017 Notes Only Cardiac Surgery Makayla Wilson APRN [facility] [place] [address] CARDIAC SURGERY [phone] [place], [place] [address] (Wo rk) Social History Tobacco [...] Zulma Dolan MD [facility] [place], [place] [address] (Wo rk) 05/28/2022 Laboratory Appointment Lab 05/28/2022 Office Visit Cardiology Zulma Dolan MD [facility] [place] [address] Liz Poole PA [facility] [place] [address] 06/10/2022 Office Visit Dermatology Laura Scherer MD [facility] [address] [place], [place] [address] (Wo rk) documented as of this encounter Visit Diagnoses Not on filedocumented in this encounter Care Teams Logistics Associate Relationship Specialty Start Date End Date Lovely Vicente MD PCP - General 04/16/[address] [place] [address] documented as of this encounter
--- OUTSIDE RECORDS SUMMARY | 2022-04-08 08:52 | XMS_ITS | Encounter Summary ---
:1945 Author Organization [facility] [place] [address] Care Team Providers Name Role Phone Lovely Vicente MD Primary Care Provider Reason for Visit Auth/Cert Specialty Diagnoses / Procedures Referred By Contact Refer red To Contact Diagnoses Critical lower limb ischemia CELLULITIS RT FOOT Procedures EMERGENCY Referral ID Status Reason Start Date Expiration Date Visits Requ ested Visits Authorized [id number] 1 1 Encounter Details Date Type Department Care Team Description 08/04/2017 Hospital Encounter XRay at [facility] Danette Maxwell Incisional pain [address] [place] [address] Dr Gomes, CAREER DEVELOPMENT CONSULTANT [facility] [address] CARDIOLOGY [place], [place] [address] Social History Tobacco Use Types [...] Zulma Dolan MD [facility] [place], [place] [address] (Wo rk) 05/28/2022 Laboratory Appointment Lab 05/28/2022 Office Visit Cardiology Zulma Dolan MD [facility] [place] [address] Liz Poole PA [facility] [place] [address] 06/10/2022 Office Visit Dermatology Laura Scherer MD [facility] DR [address] [place], [place] [address] (Wo rk) documented as [...] original. EXAMINATION: XR CHEST PA AND LATERAL (Amperion) CLINICAL HISTORY: Checking sternal stabi lity/assess wires [...] Daniele gutiérrez 08/04/2017 4:13 PM Danette Maxwell CAREER DEVELOPMENT CONSULTANT IMG DX ORDERABLES documented in this encounter Visit Diagnoses Diagnosis Incisional pain Disturbance of skin sensation documented in this encounter Care Teams Motorboat Mechanic Inboard Relationship Specialty Start Date End Date Lovely Vicente MD PCP - General 04/16/[address] [place] [address] documented as of this encounter
--- OUTSIDE RECORDS SUMMARY | 2022-04-08 08:52 | XMS_ITS | Encounter Summary ---
:1945 Author Organization [facility] [place] [address] Care Team Providers Name Role Phone Lovely Vicente MD Primary Care Provider Reason for Visit Reason Comments Foot Pain Auth/Cert Specialty Diagnoses / Procedures Referred By Contact Refer red To Contact Diagnoses Ischemic foot Procedures NAYE OBSVO Referral ID Status Reason Start Date Expiration Date Visits Requ ested Visits Authorized [id number] 1 1 Encounter Details Date Type Department Care Team Description 07/27/2017 Emergency 1 [facility] Lokesh Swenson MD [facility] [place] [address] Femoral artery pseudo-aneurysm, right; [facility] Tam Bauman MD [facility] [place] [address] [place] [address] Social History Tobacco Use Types Packs/Day [...] Gregory Fatima Patient Age: 72 y.o. Language: Finnish Race: White Ethnicity: Not nor Admit date: [...] please contact your inpatient physician through the [facility] General Practice . Issues after hours and on weekends [...] RLE critical limb ischemia, who presented to [facility] with worsening RLE pain. Pt post-op course after CABG was significant for paroxysmal Afib, and he was started on Coumadin given elevated [id number] score. 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 He [...] in the last 7068 hours. Invalid input(s): [id number] Recent Labs 07/08/17 0400 07/07/17 0515 07/06/17 [...] (it was low at 1.6 here at [facility]) 7. Use the tramadol if dilaudid or tylenol is not working 8. Stop taking the potassium supplement - your blood potassium level was elevated. Ask your doctors at future visits if this should be restarted. 9. Antibiotic for 5 days recommended by cardiothoracic surgery for chest wound drainage Follow-Up Appointments Vascular surgery as previously schedule Your Inpatient Doctor(s) at [facility]: CARLOS ALBERTO ROSALES MD General Instructions None Future Appointments and Orders Future Appointments Provider Department Dept Phone 07/30/2017 8:30 AM OSWALDO, THREE L Lab 3L [facility] [phone] 07/30/2017 9:40 AM Danette Maxwell APRN Cardiology at [place] [phone] 08/04/2017 1:00 PM Daniele Mooney [place] Vascular Lab at [place] [phone] 08/04/2017 2:15 PM Arik Clement MD Vascular Surgery at [place] [phone] 08/11/2017 10:00 AM [facility] ROOM 2 XRay at [place] [phone] Please go to Tank Refinisher Area 3T ([place] Location). 08/11/2017 11:00 AM Yuan Retana MD Cardiac Surgery at [place] [phone] 09/07/2017 3:00 PM LAB, THREE L Lab 3L [facility] [phone] 09/07/2017 4:00 PM Luz Prescott MD Endocrinology at [place] [phone] Discharge References/Attachments None documented in this encounter [...] (it was low at 1.6 here at [facility]) 3. Use the tramadol if dilaudid or tylenol is not working 4. Stop taking the potassium supplement - your blood potassium level was elevated. Ask your doctors at future visits if this should be restarted. 5. Antibiotic for 5 days recommended by cardiothoracic surgery for chest wound drainage Follow-Up Appointments Vascular surgery as previously schedule Your Inpatient Doctor(s) at [facility]: CARLOS ALBERTO ROSALES MD documented in this [...] Gas) No results found for: PHART, PO2ART, BCR1GEF Assessment/Plan: 72 y.o. male s/p CABG in [...] intervention: Education Nutrition Recommendations: Recommend continuation of [facility], CHO2 diet order Patient and denied need [...] Orders Diet Daily Healthy Menu Choices/Cardiac diet ([facility]-Diet) 60/ CHO counting level 2 Frequency: Effective Now Number of Occurrences: Until Specified Admit Weight: 83.92 kg Estimated body mass index is 28.13 kg/(m^2) as calculated from the following: Height as of this encounter: 172.7 cm (5' 8). Weight as of this encounter: 83.9 kg (185 lb). Graham body weight: 68.4 kg (150 lb 12.7 [...] RLE critical limb ischemia, who presented to [facility] with worsening RLE pain. Visited with patient [...] spent >30 minutes (Day of Discharge Code 12553) involved in the final examination of the [...] Melanoma ID: 72 y.o. Male presents to [facility] with persistent pain b/l lower extremities History of Present Illness: HPI 72 y.o. male with PMH ASCVD s/p CABG (07/07/17), MARIA VICTORIA on CPAP QHS, HTN, HLD, DM2, with recent hospitalization for RLE critical limb ischemia, who presented to [facility] with worsening RLE pain. Pt post-op course after CABG was significant for paroxysmal Afib, and he was started on Coumadin given elevated KICY4APESN score. 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 He [...] MD at [facility] OR Prior To Admission Medications: [...] Procedure Component Value Units Date/Time Blood culture [[id number]] Collected: 07/09/1739 Lab Status: Final result Specimen: Blood from Arm, Right Updated: 07/14/17701 Blood Culture No growth at 5 days. Blood culture [[id number]] Collected: 07/09/170 Lab Status: Final result Specimen: [...] limb ischemia following CABG, who presented to [facility] ED from home with persistent B/L LE [...] continued Diet Daily Healthy Menu Choices/Cardiac diet ([facility]-Diet) 60/60/75 CHO counting level 2Cardiac, low salt, CHO 2 Discharge planning Pending improvement in pain control PT/OT/Speech PT ordered Lines/Access PIV Ocasio catheter No DVT/GI Prophylaxis Lovenox bridge to Coumadin, SCD. Code status Full Code Family PCP Lovely Vicente MD [phone] Attestation Please see my note for details [...] encounter Miscellaneous Notes Plan of Care - [place]-Joyce Damian, PT - 07/27/2017 3:26 PM EST [...] Anticipated Discharge Disposition: home with assist Pager: [phone] JOYCE KING, PT Inpatient Physical Therapy 2017 [...] patient's evaluation including the following functional test(s) [facility]. Current ability measures, co-morbidities and clinical [...] a lovenox bridge. Mr. Fatima returns to [facility] ED tonight because of ongoing pain in [...] MD at [facility] OR MEDICATIONS: No current facility-administered [...] Zulma Dolan MD [facility] [place], [place] [address] (Wo rk) 05/28/2022 Laboratory Appointment Lab 05/28/2022 Office Visit Cardiology Zulma Dolan MD [facility] [place] [address] Liz Poole PA [facility] [place] [address] 06/10/2022 Office Visit Dermatology Laura Scherer MD [facility] [address]DERMAT [place]LOG[place], [place] [address] (Wo rk) documented as [...] section. TYPE AND SCREEN STAT 07/27/2017 12:53 ([facility]/CGP/SHANDA) AM EST BASIC METABOLIC PANEL STAT 07/27/2017 12:53 Re sults for this (NON-FASTING) AM EST procedure are in the results section. documented in this encounter Results POCT Glucose (07/27/2017 11:53 AM EST) P athologist Signature POC Glucose 175 65 - [address] [facility] mg/dL [facility] LABORATORY Comment: Supplemental ranges: <140 mg/dL before meals <180 mg/dL all other times of the day Specimen Anatomical Collection Method Collection Time Receive d Time (Source) Location / / Volume Laterality Blood specimen 07/27/2017 11:53 8 (specimen) AM EST 11:53 AM EST Tam Bauman MD POINT OF CARE TEST ORDERABLE S Performing Organization Address City/State/[place]IP [place] [address] Arterial Duplex Leg, Unil (07/27/2017 7:40 AM EST) Component Value Ref Test Analysis Performed At Patholo gist Range Method Time Signature VB Text Department: Vascular Surgery Lab VASCUBASE Report Patient: [id number] (GREGORY FATIMA) CPT: 24230 ICD10: I97.610;I72.4;Z09 Referring Physician: TAM BAUMAN ?? [...] Bauman MD VASCULAR ORDERABLES Performing Organization Address City/[facility]/ZIP Code Phon e Number VASCUBASE POCT Glucose (07/27/2017 6:51 AM EST) P athologist Signature POC Glucose 96 65 - [address] [facility] mg/dL [facility] LABOR[facility]ORY Comment: Supplemental ranges: <140 mg/dL before meals <180 mg/dL all other times of the day Specimen Anatomical Collection Method Collection Time Receive d Time (Source) Location / / Volume Laterality Blood specimen 07/27/2017 6:51 AM 018 6:51 (specimen) EST AM EST Tam Bauman MD POINT OF CARE TEST ORDERABLE S Performing Organization Address City/[facility]/ZIP [facility] Phon e Number [address] ABORH Recheck Status (07/27/2017 [...] City/[facility]/ZIP [place] [address] Gold Tube HOLD (07/27/2017 12:53 AM EST) P athologist Signature Gold Hold Sample in [facility]. [facility]OR[facility]ORY Specimen Anatomical Collection Method Collection Time Receive d Time (Source) Location / / Volume Laterality Blood specimen Venous Draw / 07/27/2017 12:53 07/27/19 18 1:01 (specimen) Unknown AM EST AM EST Angela Swenson MD CHEMISTRY ORDERABLES Performing Organization Address City/State/[place] [address] (ABNORMAL) Differential, Automated (07/27/2017 12:53 AM EST) Patholo gist Method Time Signature Neutrophils % 75.0 % [facility] LABORATORY Neutr Abs (ANC) 11.30 (H) 1.[address] - [facility] 6.10 [facility] x10(3)/[facility] LABORATORY Lymphocytes % 9.9 % [facility] LABORATORY Lymphocytes Abs 1.5 0.9 - [address] [facility] x10(3)/[facility] LABORATORY Monocytes % 8.6 % [facility] LABORATORY Monocyte Abs 1.3 (H) 0.3 - 0.[address] [facility] x10(3)/[facility] LABORATORY Eosinophils % 4.8 % [facility] LABORATORY Eosinophils Abs 0.7 (H) 0.0 - 0.[address] [facility] x10(3)/[facility] LABORATORY Basophils % 0.8 % [facility] LABORATORY Basophils Abs 0.1 0.0 - 0.[address] [facility] x10(3)/[facility] LABORATORY Immature Gran % 0.90 [...] Gran Abs 0.13 (H) 0.00 - 0.04 x10(3)/[facility] LABORATORY Specimen Anatomical Collection Method Collection Time Receive d Time (Source) Location / / Volume Laterality Blood specimen 07/27/2017 12:53 8 1:00 (specimen) AM EST AM EST Resulting Agency Comment Spec In Lab Angela Swenson MD HEMATOLOGY ORDERABLES Performing Organization Address City/State/[place] [address] (ABNORMAL) Hemogram (07/27/2017 12:53 AM EST) Analysis Performed At Patho logist Time Signature WBC 15.0 (H) 4.0 - 9.5 [facility](3[facility] LABORATORY RBC 3.59 (L) 4.58 - [facility] 5.54 [facility] x10(6)/[facility] LABORATORY Hemoglobin 10.3 (L) 13.7 - [facility] 16.[facility] gm/dL [facility] LABORATORY Hematocrit 32.6 (L) 40.5 - [facility] 48.5 % [facility] LABORATORY MCV 90.8 82.9 - [facility] 93.1 [facility] LABORATORY MCH 28.7 27.5 - [facility] R[facility]AN 32.1 pg [facility] LABORATORY MCHC 31.6 (L) 32.0 - [facility] 35.7 gm/dL [facility] LABORATORY Platelets 322 145 - [address] [facility] [facility] x10(3)/[facility] RDWSD 48.7 (H) 36.0 - [facility] 45.0 [facility] LABORATORY RDWCV 14.7 (H) 11.4 - [facility] 13.8 % [facility] LABORATORY MPV 8.9 7.6 - 12.9 [facility] LABORATORY nRBC % Auto 0.0 % [facility] LABORATORY nRBC Abs Auto 0.000 0.000 - [facility] R[facility]AN 0.000 [facility] x10(3)/[facility] LABORATORY Specimen Anatomical Collection Method Collection Time Receive d Time (Source) Location / / Volume Laterality Blood specimen 07/27/2017 12:53 8 1:00 (specimen) AM EST AM EST Resulting Agency Comment Spec In Lab Angela Swenson MD HEMATOLOGY ORDERABLES Performing Organization Address City/State/ZIP [place] [address] Antibody screen (07/27/2017 12:53 AM EST) Patholo gist Method Time Signature Ab Screen Negative [facility] LABORATORY Expires at 07/30/2017 KATALINA ZHAORYAN [id number] on: [facility] LABORATORY Specimen Anatomical Collection Method Collection Time Receive d Time (Source) Location / / Volume Laterality Blood specimen 07/27/2017 12:53 8 (specimen) AM EST 12:58 AM EST Resulting Agency Comment Spec In Lab Angela Swenson MD BLOOD BANK ORDERABLES Performing Organization Address City/[facility]/ZIP [place] [address] ABO/Rh Typing (07/27/2017 12:53 AM EST) P athologist Signature ABORh Type O Pos [facility] LABORATORY Specimen Anatomical Collection Method Collection Time Receive d Time (Source) Location / / Volume Laterality Blood specimen 07/27/2017 12:53 8 (specimen) AM EST 12:58 AM EST Resulting Agency Comment Spec In Lab Angela Swenson MD BLOOD BANK ORDERABLES Performing Organization Address City/[facility] [place] [address] (ABNORMAL) Prothrombin Time (07/27/2017 12:53 AM EST) P athologist Signature PT 19.1 (H) 11.8 - 14.0 [employer] [...] Address City/State/[place] [address] (ABNORMAL) Basic Metabolic Panel (non-fasting) (07/27/2017 12:53 AM EST) athologist Signature Glucose Lvl 95 65 - [address] [facility] [facility] mg/dL [facility] LABORATORY Comment: Diabetes: >=200 mg/dL plus symp toms BUN 37 (H) 10 - 20 mg/dL [facility] LABORATORY Creatinine 1.49 0.80 - 1.50 mg/dL [facility] LABORATORY Sodium 137 135 - 145 mmol/L [facility] LABORATORY Potassium 5.1 (H) 3.5 - 5.0 mmol/L [facility] [...] mg/dL [facility] LABORATORY Estimated GFR 46 (L) >=60 [facility] LABOR[facility]ORY Comment: The reported eGFR should be multiplied b y 1.2 for patients. The MDRD is not an appropriate measure o f renal function for patients with body mass extremes or in patients with acute kidney failure. http://ActionX/DHnkdep http://ActionX/DHMCnkf Specimen Anatomical Collection Method Collection Time Receive d Time (Source) Location / / Volume Laterality Blood specimen 07/27/2017 12:53 8 1:00 (specimen) AM EST AM EST Resulting Agency Comment Spec In Lab Angela Swenson MD CHEMISTRY ORDERABLES Performing Organization Address City/State/[place] [address] documented in this encounter [...] documented in this encounter Care Teams It Infrastructure Manager Relationship Specialty Start Date End Date Lovely Vicente MD PCP - General 04/16/15 [facility] [address] [facility] [address] [place] [address] documented as of this encounter
--- OUTSIDE RECORDS SUMMARY | 2022-04-08 08:52 | XMS_ITS | Encounter Summary ---
:1945 Author Organization [facility] [place] [address] Care Team Providers Name Role Phone Lovely Vicente MD Primary Care Provider Reason for Visit Auth/Cert Specialty Diagnoses / Procedures Referred By Contact Refer red To Contact Diagnoses Critical lower limb ischemia CELLULITIS RT FOOT Procedures EMERGENCY Referral ID Status Reason Start Date Expiration Date Visits Requ ested Visits Authorized [id number] 1 1 Encounter Details Date Type Department Care Team Description 08/04/2017 [facility] Flower MD thrombosis of [facility] [place] [phone] Social History Tobacco Use Types Packs/Day Years [...] MD [facility] [place], [place] [address] (Wo rk) 05/28/2022 Laboratory Appointment Lab 05/28/2022 Office Visit Cardiology Zulma Dolan MD [facility] [place] [address] Liz Poole PA [facility] [place] [address] 06/10/2022 Office Visit Dermatology Laura Scherer MD [facility] [address] [place]LOG[place], [place] [address] (Wo rk) documented as of [...] Component Value Ref Test Analysis Performed At [facility] Range Method Time Signature VB Text Department: Vascular Surgery Lab VASCUBASE Report Patient: [id number] (DON HOANG) CPT: 41797 ICD10: I82.541 Referring Physician: MEÑO HUTSON ?? [...] extremity documented in this encounter Care Teams Manager Tax Relationship Specialty Start Date End Date Lovely Vicente MD PCP - General 04/16/[address] [place] [address] documented as of this encounter
--- OUTSIDE RECORDS SUMMARY | 2022-04-08 08:52 | XMS_ITS | Encounter Summary ---
:1945 Author Organization [facility] [place] [address] Care Team Providers Name Role Phone Lovely Vicente MD Primary Care Provider Encounter Details Date Type Department Care Team Description 08/06/2017 Orders Only Vascular Surgery at [facility] [place] APRN Ischemia of foot [facility] [place] [address] VASCULAR SURGERY [phone] [place], [place] [address] (Wo rk) Social History Tobacco [...] MD [facility] er [address] [place], [place] [address] (Wo rk) 05/28/2022 Laboratory Appointment Lab 05/28/2022 Office Visit Cardiology Zulma Dolan MD [facility] [place] [address] Liz Poole PA [facility] [place] [address] 06/10/2022 Office Visit Dermatology Laura Scherer MD [facility] DR [address] GR[address]DERMAT [place], [place] [address] (Wo rk) documented as of [...] 444 ms MUSE SYSTEM (Bezet) Calculated P [place] 44 degrees MUSE SYSTEM Calculated R [place] -31 degrees MUSE SYSTEM Calculated T [place] 106 degrees MUSE SYSTEM INTERPRETATION Normal sinus [...] - 40 [place]ALINA RYAN mg/dL [facility] LABORATORY Comment: Prealbumin levels are generally lower in the pediatric population; adult concentrations are usually attained near puberty. Specimen Anatomical Collection Method Collection Time Receive d Time (Source) Location / / Volume Laterality Blood specimen 08/06/2017 12:32 8 1:15 (specimen) PM EST PM EST Resulting Agency Comment Spec In Lab Arik Clement MD CHEMISTRY ORDERABLES Performing Organization Address City/State/ZIP [place] [address] (ABNORMAL) Basic Metabolic Panel (non-fasting) (08/06/2017 12:32 PM EST) athologist Signature Glucose Lvl 92 65 - 199 [facility] mg/dL [facility] LABORATORY Comment: Diabetes: >=200 mg/dL plus symp toms BUN 29 (H) 10 - 20 mg/dL [facility]ITAL LABORATORY Estimated GFR 53 (L) >=60 [facility] Comment: The reported eGFR should be multiplied b y 1.2 for patients. The MDRD is not an appropriate measure o f renal function for patients with body mass extremes or in patients with acute kidney failure. http://Mobcart/DHnkdep http://Mobcart/DHMCnkf Specimen Anatomical Collection Method Collection Time Receive d Time (Source) Location / / Volume Laterality Blood specimen 08/06/2017 12:32 8 1:15 (specimen) PM EST PM EST Resulting Agency Comment Spec In Lab Arik Clement MD CHEMISTRY ORDERABLES Performing Organization Address City/State/ZIP [place] [address] (ABNORMAL) Hemogram (08/06/2017 12:32 PM EST) Analysis Performed At Patho logist Time Signature WBC 11.8 (H) 4.0 - 9.5 [facility] x10(3)/[facility] LABORATORY RBC 3.49 (L) 4.58 - [facility] 5.54 [facility] x10(6)/[facility] LABORATORY Hemoglobin 9.9 (L) 13.7 - [facility] 16.5 gm/dL [facility] LABORATORY Hematocrit 32.0 (L) 40.5 - [facility] 48.5 % [facility] LABORATORY MCV 91.7 82.9 - [facility] 93.1 [facility] LABORATORY MCH 28.4 27.5 - [facility] 32.1 pg [facility] LABORATORY MCHC 30.9 (L) 32.0 - [facility] 35.7 gm/dL [facility] LABORATORY Platelets 326 145 - 357 [facility] x10(3)/[facility] LABORATORY RDWSD 53.4 (H) 36.0 - [facility] 45.0 [facility] LABORATORY RDWCV 16.0 (H) 11.4 - [facility] 13.8 % [facility] LABORATORY MPV 9.1 7.6 - 12.9 [facility] LABORATORY nRBC % Auto 0.0 % [facility] LABORATORY nRBC Abs Auto 0.000 0.000 - [facility] 0.000 [facility] x10(3)/[facility] LABORATORY Specimen Anatomical Collection Method Collection Time Receive d Time (Source) Location / / Volume Laterality Blood specimen 08/06/2017 12:32 8 1:15 (specimen) PM EST PM EST Resulting Agency Comment Spec In Lab Arik Clement MD HEMATOLOGY ORDERABLES Performing Organization Address City/State/ZIP [place] [address] documented in this encounter Visit Diagnoses Diagnosis Ischemia of foot Unspecified circulatory system disorder documented in this encounter Care Teams Boilers And Pressure Vessels Inspector Relationship Specialty Start Date End Date Lovely Vicente MD PCP - General 04/16/[address] [place] [address] documented as of this encounter
--- OUTSIDE RECORDS SUMMARY | 2022-04-08 08:52 | XMS_ITS | Encounter Summary ---
:1945 [place] [address] Care Team Providers Name Role Phone Lovely Vicente MD Primary Care Provider Encounter Details Date Type Department Care Team Description 08/04/2017 Notes Only Cardiac Surgery Makayla Wilson DIRECTOR OF CORPORATE SPONSORSHIPS [facility] [place] [address] CARDIAC SURGERY [phone] [place], [place] [address] (Wo rk) Social History [...] Dolan MD [facility] [address] [place], [place] [address] (Wo rk) 05/28/2022 Laboratory Appointment Lab 05/28/2022 Office Visit Cardiology Zulma Dolan MD [facility] [place] [address] Liz Poole PA [facility] [place] [address] 06/10/2022 Office Visit Dermatology Laura Scherer MD [facility] DR TE[address] GR[facility] [place] [address] (Wo rk) documented as of this encounter Visit Diagnoses Not on filedocumented in this encounter Care Teams Senior Process Engineer Relationship Specialty Start Date End Date Lovely Vicente MD PCP - General 04/16/[address] [place] [address] documented as of this encounter
--- OUTSIDE RECORDS SUMMARY | 2022-04-08 08:52 | XMS_ITS | Encounter Summary ---
:1945 Author Organization [facility] Address [facility] [place] [address] Care Team Providers Name Role Phone Lovely Vicente MD Primary Care Provider Reason for Visit Auth/Cert Specialty Diagnoses / Procedures Referred By Contact Refer red To Contact Diagnoses Critical lower limb ischemia CELLULITIS RT FOOT Procedures EMERGENCY Referral ID Status Reason Start Date Expiration Date Visits Requ ested Visits Authorized [id number] 1 1 Encounter Details Date Type Department Care Team Description 08/04/2017 Laboratory Lab 3L Barbara Cardiomyopathy, unspecified type; Appointment [facility] Systolic congestive heart failure, unspecified congestive heart failure chronicity; Hospital Coronary artery rupture; [facility] Ischemic cardiomyopathy; Drive Atherosclerosis of [place] co ronary artery, angina presence unspecified, unspecified whether [place] or transplanted heart; [place], [place] Essential hyper tension, malignant; [phone] 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, unspecified 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 or intermediate school principal insulin use status [phone] Social History Tobacco Use Types Packs/Day Years [...] [facility] [address] [place] [address] (Wo rk) 05/28/2022 Laboratory Appointment Lab 05/28/2022 Office Visit Cardiology Zulma Dolan MD [facility] [place] [address] Liz Poole PA [facility] [place] [address] 06/10/2022 Office Visit Dermatology Laura Scherer MD [facility] ER [address]DERMAT [place], [place] [address] (Wo rk) documented as of this encounter Procedures Procedure Name Priority Date/Time Associated Diagnosis Comme nts HEMOGRAM Routine 08/04/2017 12:55 Essential Results for this PM EST hypertension, procedure are in malignant the results section. PROTHROMBIN TIME Routine 08/04/2017 12:55 Coronary artery Resu lts for this PM EST rupture procedure are in Ischemic the results cardiomyopathy section. Atherosclerosis of [place] coronary artery, angina presence unspecified, unspecified whether [place] or transplanted heart URIC ACID Routine 08/04/2017 [...] Signature Uric Acid 7.1 3.5 - 8.5 [facility]dL [facility] Specimen Anatomical Collection Method Collection Time Receive d Time (Source) Location / / Volume Laterality Blood specimen 08/04/2017 12:55 8 1:01 (specimen) PM EST PM EST Resulting Agency Comment Spec In Lab Lovely Vicente MD CHEMISTRY ORDERABLES Performing Organization Address City/[facility]/[place] [address] (ABNORMAL) Hemogram (08/04/2017 12:55 PM EST) Analysis Performed At Patho logist Time Signature WBC 15.8 (H) 4.0 - 9.5 [facility] x[facility](3)/[facility] LABORATORY RBC 3.48 (L) 4.58 - [facility] 5.54 [facility] x10(6)/[facility] LABORATORY Hemoglobin 9.9 (L) 13.7 - [facility] 16.5 gm/dL [facility] Hematocrit 31.4 (L) 40.5 - [facility] 48.5 % [facility] MCV 90.2 82.9 - [facility] 93.1 [facility] MCH 28.4 27.5 - [facility] 32.1 pg [facility] MCHC 31.5 (L) 32.0 - [facility] 35.7 gm/dL [facility] Platelets 310 145 - 357 [facility] x10(3)/[facility] LABORATORY RDWSD 51.8 (H) 36.0 - [facility] 45.0 [facility] RDWCV 15.8 (H) 11.4 - [facility] 13.8 % [facility] MPV 8.9 7.6 - 12.9 [facility] LABORATORY nRBC % Auto 0.0 % [facility] nRBC Abs Auto 0.000 0.000 - [facility] 0.000 [facility] x10(3)/[facility] LABORATORY Specimen Anatomical Collection Method Collection Time Receive d Time (Source) Location / / Volume Laterality Blood specimen 08/04/2017 12:55 8 1:01 (specimen) PM EST PM EST Resulting Agency Comment Spec In Lab Lovely Vicente MD HEMATOLOGY ORDERABLES Performing Organization Address City/State/[place] [address] (ABNORMAL) Comprehensive metabolic panel (non-fasting) (08/04/2017 12:55 PM EST) athologist Signature Glucose Lvl 208 (H) 65 - 199 [facility] mg/dL [facility] Comment: Diabetes: >=200 mg/dL plus symp toms BUN 32 (H) 10 - 20 mg/dL [facility] Creatinine 1.58 (H) 0.80 - 1.50 mg/dL [facility] Total Protein 6.9 6.1 - 8.0 gm/dL [facility] Albumin 3.4 3.2 - 5.2 gm/dL [facility] AST 20 0 - 39 unit/L [facility] ALT 21 0 - 55 unit/L [facility] Alk Phos 93 40 - 120 unit/L [facility] Total Bilirubin 0.4 0.2 - 1.3 mg/dL [facility] Estimated GFR 43 (L) >=60 [facility] Comment: The reported eGFR should be multiplied b y 1.2 for patients. The MDRD is not an appropriate measure o f renal function for patients with body mass extremes or in patients with acute kidney failure. http://[employer]/DHnkdep http://[employer]/DHMCnkf Specimen Anatomical Collection Method Collection Time Receive d Time (Source) Location / / Volume Laterality Blood specimen 08/04/2017 12:55 8 1:01 (specimen) PM EST PM EST Resulting Agency Comment Spec In Lab Lovely Vicente MD CHEMISTRY ORDERABLES Performing Organization Address City/State/ZIP Code Phon e Number [place] [id number] [address] (ABNORMAL) Hemoglobin A1c (08/04/2017 [...] S67-74 Est Avg Gluc See note mg/dL [place] [...] with hemoglobinopathies. Additional resources are available on [facility] website. Macario HAMMOND, Ruthann J, Deysi R, et al. ??Tr anslating the A1C assay into estimated average glucose values. ??Diabetes Care 2008:31(8):0137-8276. Specimen Anatomical Collection Method Collection Time Receive d Time (Source) Location / / Volume Laterality Blood specimen 08/04/2017 12:55 8 1:01 (specimen) PM EST PM EST Resulting Agency Comment Spec In Lab Lovely Vicente MD CHEMISTRY ORDERABLES Performing Organization Address [facility] [place] [address] (ABNORMAL) Prothrombin Time (08/04/2017 [...] Vicente MD HEMATOLOGY ORDERABLES Performing Organization Address [facility] [place] [address] (ABNORMAL) pro-Brain Natriuretic Peptide (08/04/2017 12:55 PM EST) P athologist Signature ProBNP 3,133 (H) <=125 [facility] pg/mL [facility] Specimen Anatomical Collection Method Collection Time Receive d Time (Source) Location / / Volume Laterality Blood specimen 08/04/2017 12:55 8 1:01 (specimen) PM EST PM EST Resulting Agency Comment Spec In Lab Danette Maxwell APRN CHEMISTRY ORDERABLES Performing Organization Address City/State/[place] [address] documented in this encounter Visit Diagnoses Diagnosis Cardiomyopathy, unspecified type Systolic congestive heart failure, unspe cified congestive heart failure chronicity Coronary artery rupture Acute myocardial infarction, unspecified site, episode of care unspecified Ischemic cardiomyopathy Other specified forms of chronic ischemi c heart disease Atherosclerosis of [place] coronary arter y, angina presence unspecified, unspecified whether [place] or transplanted heart Essential hypertension, malignant Diabetes mellitus due to underlying cond ition with diabetic nephropathy, unspecified 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
--- OUTSIDE RECORDS SUMMARY | 2022-04-08 08:52 | XMS_ITS | Encounter Summary ---
:1945 Author Organization [facility] [place] [address] Care Team Providers Name Role Phone Lovely Vicente MD Primary Care Provider Encounter Details Date Type Department Care Team Description 07/29/2017 Transcribe Orders Laboratory Lovely Vicente MD [address] [address] [place] [address] [phone] (Wo rk) Social History Tobacco Use Types [...] Cardiology Zulma Dolan MD [facility] [place] [address] [place] [address] (Wo rk) 05/28/2022 Laboratory Appointment Lab 05/28/2022 Office Visit Cardiology Zulma Dolan MD [facility] [place] [address] Liz Poole PA [facility] [place] [address] 06/10/2022 Office Visit Dermatology Laura Scherer MD [facility] ER DR [address] [place], [place] [address] (Wo rk) documented as of this encounter Visit Diagnoses Not on filedocumented in this encounter Care Teams Insurance Advisor Relationship Specialty Start Date End Date Lovely Vicente MD PCP - General 04/16/[address] [place] [address] documented as of this encounter
--- OUTSIDE RECORDS SUMMARY | 2022-04-08 08:52 | XMS_ITS | Encounter Summary ---
:1945 Author Organization [facility] [place] [address] Care Team Providers Name Role Phone Lovely Vicente MD Primary Care Provider Reason for Visit Auth/Cert Specialty Diagnoses / Procedures Referred By Contact Refer red To Contact Diagnoses Critical lower limb ischemia CELLULITIS RT FOOT Procedures EMERGENCY Referral ID Status Reason Start Date Expiration Date Visits Requ ested Visits Authorized [id number] 1 1 Encounter Details Date Type Department Care Team Description 08/04/2017 Office Visit Cardiology [place] [facility] Danette Maxwell Incisional pain; [facility] A, PUBLIC WORKS COMMISSIONER Ischemic cardiomyopathy; [facility] ASCVD (arteriosclerotic card iovascular disease); [place], [place] Systolic heart failure, unspecified hear t failure chronicity [phone] CARDIOLOGY [phone] [place], [place] [address] Social History Tobacco Use [...] in this encounter Progress Notes Danette Maxwell, PUBLIC WORKS COMMISSIONER - 08/04/2017 3:00 PM EST ID and [...] 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 [address] [place], [place] [address] (Wo rk) documented as of [...] sensation documented in this encounter Care Teams Adult Neurologist Relationship Specialty Start Date End Date Lovely Vicente MD PCP - General 04/16/[address] [place] [address] documented as of this encounter
--- OUTSIDE RECORDS SUMMARY | 2022-04-08 08:52 | XMS_ITS | Encounter Summary ---
:1945 [place] [address] Care Team Providers Name Role Phone Lovely Vicente MD Primary Care Provider Encounter Details Date Type Department Care Team Description 08/05/2017 Notes Only Vascular Surgery at [facility] [place], [facility] [place] [address] VASCULAR SURGERY [phone] [place], [place] [address] (Wo rk) Social History Tobacco [...] MD [facility] [place], [place] [address] (Wo rk) 05/28/2022 Laboratory Appointment Lab 05/28/2022 Office Visit Cardiology Zulma Dolan MD [facility] [place] [address] Liz Poole PA [facility] [place] [address] 06/10/2022 Office Visit Dermatology Laura Scherer MD [facility] DR [address] [place], [place] [address] (Wo rk) documented as of this encounter Visit Diagnoses Not on filedocumented in this encounter Care Teams Cataloging Assistant Relationship Specialty Start Date End Date Lovely Vicente MD PCP - General 04/16/15 [facility] [address] [place] [address] documented as of this encounter
--- OUTSIDE RECORDS SUMMARY | 2022-04-08 08:52 | XMS_ITS | Encounter Summary ---
:1945 Author Organization [facility] [place] [address] Care Team Providers Name Role Phone Lovely Vicente MD Primary Care Provider Encounter Details Date Type Department Care Team Description 08/02/2017 Telephone Pain Management at [facility] [place], [place] [address] Social History Tobacco Use Types Packs/Day [...] Management Center Preauthorization Request Patient: Don Fatima [id number] Fax received from [facility] requesting we obtain prior authorization for Lidocaine patches prescribed by Barbra Soares APRN. RX insurance plan: [employer] RX insurance telephone: [phone] Patient Diagnosis: right foot pain secondary to PVD and ischemia Previous medications attempted: Tylenol, Tramadol, Dilaudid The following action was taken after discussion with the child and family services worker: _x_ pharmacy informed Authorized dosage or amount: 5% on patch on for 12 hours, then remove for 12 hours. Angeles Rodrigez, RN documented in this encounter Plan of Treatment Upcoming Encounters Date Type Specialty Care Team Description 05/28/2022 Appointment Cardiology Zulma Dolan MD [facility] [place], [place] [address] (Wo rk) 05/28/2022 Laboratory Appointment Lab 05/28/2022 Office Visit Cardiology Zulma Dolan MD [facility] [place] [address] Liz Poole PA [facility] [place] [address] 06/10/2022 Office Visit Dermatology Laura Scherer MD [facility] DR [address]MAT [place], [place] [address] (Wo rk) documented as of this encounter Visit Diagnoses Not on filedocumented in this encounter Care Teams Vegetable Worker Relationship Specialty Start Date End Date Lovely Vicente MD PCP - General 04/16/[address] [place] [address] documented as of this encounter
--- OUTSIDE RECORDS SUMMARY | 2022-04-08 08:52 | XMS_ITS | Encounter Summary ---
:1945 Author Organization [facility] [place] [address] Care Team Providers Name Role Phone Lovely Vicente MD Primary Care Provider Reason for Visit Reason Comments Deep Vein Thrombosis Auth/Cert Specialty Diagnoses / Procedures Referred By Contact Refer red To Contact Diagnoses Critical lower limb ischemia CELLULITIS RT FOOT Procedures EMERGENCY Referral ID Status Reason Start Date Expiration Date Visits Requ ested Visits Authorized [id number] 1 1 Encounter Details Date Type Department Care Team Description 08/04/2017 Office Visit Vascular Surgery at [facility] itical lower limb [facility] [place] [facility] [address] [place] VASCULAR SURGERY [id number] [place] [address] [phone] Social History Tobacco Use Types Packs/Day Years [...] was discharged on Coumadin. ??[place] [facility] [place] [...] Zulma Dolan MD [facility] [place] [address] (Wo rk) 05/28/2022 Laboratory Appointment Lab 05/28/2022 Office Visit Cardiology Zulma Dolan MD [facility] [place] [address] Liz Poole PA [facility] [place] [address] 06/10/2022 Office Visit Dermatology Laura Scherer MD [facility] ER DR [address]MAT [place], [place] [address] (Wo rk) documented as of this encounter Visit Diagnoses Diagnosis Critical lower limb ischemia Unspecified circulatory system disorder documented in this encounter Care Teams Soup Person Relationship Specialty Start Date End Date Lovely Vicente MD PCP - General 04/16/[address] [facility] [address] [place], [place] [address] documented as of this encounter
--- OUTSIDE RECORDS SUMMARY | 2022-04-08 08:52 | XMS_ITS | Encounter Summary ---
:1945 Author Organization [facility] [place] [address] Care Team Providers Name Role Phone Lovely Vicente MD Primary Care Provider Reason for Visit Reason Comments Foot Ulcer WOUND CHECK Auth/Cert Specialty Diagnoses / Procedures Referred By Contact Refer red To Contact Diagnoses Critical lower limb ischemia CELLULITIS RT FOOT Procedures EMERGENCY Referral ID Status Reason Start Date Expiration Date Visits Requ ested Visits Authorized [id number] 1 1 Encounter Details Date Type Department Care Team Description 08/06/2017 [facility] [place] [facility] [address] [place], [place] VASCULAR SURGERY [address] [place] [address] [phone] Social History Tobacco Use Types Packs/Day Years [...] Smith MD - 08/06/2017 1:00 PM EST [facility] staff: 1. RIGHT leg CLI Interval [...] Zulma Dolan MD [facility] [address] [place], [place] [address] (Wo ) 05/28/2022 Laboratory Appointment Lab 05/28/2022 Office Visit Cardiology Zulma Dolan MD [facility] [place] [address] Liz Poole PA [facility] [place] [address] 06/10/2022 Office Visit Dermatology Laura Scherer MD [facility] ER DR [address]DERMAT [place], [place] [address] (Wo rk) documented as of this encounter Visit Diagnoses Diagnosis Critical lower limb ischemia Unspecified circulatory system disorder documented in this encounter Care Teams Manager Market Development Relationship Specialty Start Date End Date Lovely Vicente MD PCP - General 04/16/[address] [place], [place] [address] documented as of this encounter
--- OUTSIDE RECORDS SUMMARY | 2022-04-08 08:52 | XMS_ITS | Encounter Summary ---
:1945 Author Organization [facility] [place] [address] Care Team Providers Name Role Phone Lovely Vicente MD Primary Care Provider Encounter Details Date Type Department Care Team Description 08/03/2017 Telephone Pain Management at [facility] [place], [place] [address] Social History Tobacco Use Types Packs/Day [...] Management Center Preauthorization Request Patient: Don Fatima [id number] Fax received from [facility] requesting we obtain prior authorization for Lidocaine Patches prescribed by Barbra Soares APRN. RX insurance plan: [employer] insurance telephone: [phone] Patient ?? Diagnosis: right foot pain secondary to PVD and ischemia ?? Previous medications attempted: Tylenol, Tramadol, Dilaudid Authorization/Reference number: [id number], PBP Code 801 _x_ denied, provider and patient informed _x_ appeal initiated by provider, patient informed Angeles Rodrigez, RN documented in this encounter Plan of Treatment Upcoming Encounters Date Type Specialty Care Team Description 05/28/2022 Appointment Cardiology Zulma Dolan MD [facility] [place], [place] [address] (Wo rk) 05/28/2022 Laboratory Appointment Lab 05/28/2022 Office Visit Cardiology Zulma Dolan MD [facility] [place] [address] Liz Poole PA [facility] [place] [address] 06/10/2022 Office Visit Dermatology Laura Scherer MD [facility] [address] [place], [place] [address] (Wo rk) documented as of this encounter Visit Diagnoses Not on filedocumented in this encounter Care Teams Hop Strainer Relationship Specialty Start Date End Date Lovely Vicente MD PCP - General 04/16/[address] [place] [address] documented as of this encounter
--- OUTSIDE RECORDS SUMMARY | 2022-04-08 08:52 | XMS_ITS | Encounter Summary ---
:1945 Author Organization [facility] [place] [address] Care Team Providers Name Role Phone Lovely Vicente MD Primary Care Provider Reason for Visit Reason Comments Pain Management Ankle Pain Toe Pain Encounter Details Date Type Department Care Team Description 07/30/2017 Office Visit Pain Management at [facility], Per ipheral neuropathy [place] LIVE IN COMPANION due to ischemia [address], [place], [place] [phone] Social History Tobacco Use Types Packs/Day Years [...] Soares APRN - 07/30/2017 1:45 PM EST [facility] [place] [address] Phone: PAIN MANAGEMENT NEW PATIENT / CONSULTATION NOTE DATE OF VISIT 07/30/2017 Patient Don Fatima 1945 REFERRING PROVIDER Lovely Vicente MD [address] [place] [address] PRIMARY CARE PROVIDER Lovely Vicente MD CHIEF [...] much relief PAST THERAPIES: Nothing MEDICATIONS The [place] Prescription Monitoring Program was checked and no [...] SETUP performed by Manny Mcknight MD at [facility] OR ??? PRO CABG, ARTERIAL, SINGLE N/A 07/07/2017 @CABG, USING ARTERIAL GRAFT;SINGLE ARTERIAL GRAFT (WRVU 33.75) performed by Yuan Retana MD at [facility] OR ??? PRO CABG, ARTERY-VEIN, TWO N/A 07/07/2017 @CABG, TWO VENOUS GRAFTS & ARTERIAL GRAFT (WRVU 7.93) performed by Yuan Retana MD at [facility] OR ??? PRO COLONOSCOPY, REMV LESN, SNARE 01/16/2014 COLONOSCOPY, POLYPECTOMY, REMOVAL LESION BY SNARE performed by Nohemi Jaimes MD at [facility] ENDOSCOPY ??? PRO ENDOSCOPY W/VIDEO-ASST VEIN HARVEST, CABG Right 07/07/2017 ENDOSCOPIC HARVEST VEIN(S) FOR CABG (WRVU 0.31) performed by Yuan Retana MD at [facility] OR ??? PRO THYROIDECTOMY 03/28/2013 [...] referral, Lovely Vicente MD [address] [place] [address]. [facility] Soares, MSN, LAST CHALKER-BC, LIVE IN COMPANION Nurse Practitioner [facility] Center documented in this encounter Plan of Treatment Upcoming Encounters Date Type Specialty Care Team Description 05/28/2022 Appointment Cardiology Zulma Dolan MD [facility] [place], [place] [address] (Wo rk) 05/28/2022 Laboratory Appointment Lab 05/28/2022 Office Visit Cardiology Zulma Dolan MD [facility] [place] [address] Liz Poole PA [facility] [place] [address] 06/10/2022 Office Visit Dermatology Laura Scherer MD [facility] [address] [place], [place] [address] (Wo rk) documented as of this encounter Visit Diagnoses Diagnosis 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
--- OUTSIDE RECORDS SUMMARY | 2022-04-08 08:52 | XMS_ITS | Encounter Summary ---
:1945 Author Organization [facility] [place] [address] Care Team Providers Name Role Phone Lovely Vicente MD Primary Care Provider Encounter Details Date Type Department Care Team Description 07/24/2017 Telephone Vascular Surgery Melba Bob [facility] [place] [address] [facility] [phone] VASCULAR SURGERY [place], [place] [address] (Wo rk) Social History Tobacco [...] Dolan MD [facility] [place] [address] Liz Poole PA [facility] [place] [address] 06/10/2022 Office Visit Dermatology Laura Scherer MD [facility] [address] [place], [place] [address] (Wo rk) documented as of this encounter Visit Diagnoses Not on filedocumented in this encounter Care Teams Blending Machine Operator Relationship Specialty Start Date End Date Lovely Vicente MD PCP - General 04/16/[address] [place] [address] documented as of this encounter
--- OUTSIDE RECORDS SUMMARY | 2022-04-08 08:52 | XMS_ITS | Encounter Summary ---
:1945 [place] [address] Care Team Providers Name Role Phone Lovely Vicente MD Primary Care Provider Encounter Details Date Type Department Care Team Description 08/03/2017 Hospital Encounter Radiology Library at [place], Tommy Mijares [facility] [place] [address] VASCULAR SURGERY [phone] [place], [place] [address] (Wo rk) Social History Tobacco [...] Zulma Dolan MD [facility] [address] [place], [place] [address] (Wo rk) 05/28/2022 Laboratory Appointment Lab 05/28/2022 Office Visit Cardiology Zulma Dolan MD [facility] [place] [address] Liz Poole PA [facility] [place] [address] 06/10/2022 Office Visit Dermatology Laura Scherer MD [facility] [address] [place], [place] [address] (Wo rk) documented as of [...] Time Received Time / Laterality Volume Narrative [facility] - 08/03/2017 6:01 PM EST This exam is for storage only and is aut o-finalizing. Arik Clement MD G FILM LIBRARY ORDERABLES Performing Organization Address City/State/ZIP Code Phon e Number [place], [place] documented in this encounter Visit Diagnoses Diagnosis Pain Generalized pain documented in this encounter Care Teams Electrical Fitter Relationship Specialty Start Date End Date Lovely Vicente MD PCP - General 04/16/[address] [place] [address] documented as of this encounter
--- OUTSIDE RECORDS SUMMARY | 2022-04-08 08:53 | XMS_ITS | Encounter Summary ---
:1945 [place] [address] Care Team Providers Name Role Phone Lovely Vicente MD Primary Care Provider Reason for Visit Reason Onset Date Comments Questions 07/16/2017 fluid retention Encounter Details Date Type Department Care Team Description 07/16/2017 Telephone Cardiology at [facility] Martha Comer, Questions ([facility] RN retention ) [place] [address] Social History Tobacco Use Types Packs/Day [...] the direct number to the HF team ([phone]). She is aware of his appt with PROVIDER RELATIONS ADVOCATE Hans on 07/21/17 and the need for labs prior to that visit. verbalized good understanding of the current POC. documented in this encounter Plan of Treatment Upcoming Encounters Date Type Specialty Care Team Description 05/28/2022 Appointment Cardiology Zulma Dolan MD [facility] [address] [place], [place] [address] (Wo rk) 05/28/2022 Laboratory Appointment Lab 05/28/2022 Office Visit Cardiology Zulma Dolan MD [facility] [place] [address] Liz Poole PA [facility] [place] [address] 06/10/2022 Office Visit Dermatology Laura Scherer MD [facility] [address] [place], [place] [address] (Wo rk) documented as of this encounter Visit Diagnoses Not on filedocumented in this encounter Care Teams Nut Tightener Relationship Specialty Start Date End Date Lovely Vicente MD PCP - General 04/16/[address] [place] [address] documented as of this encounter
--- OUTSIDE RECORDS SUMMARY | 2022-04-08 08:53 | XMS_ITS | Encounter Summary ---
:1945 [place] [address] Care Team Providers Name Role Phone Lovely Vicente MD Primary Care Provider Reason for Visit Reason Comments Hospital Transfer cold foot post CABG Auth/Cert Specialty Diagnoses / Procedures Referred By Contact Refer red To Contact Diagnoses Critical lower limb ischemia Procedures NAYE IPI Referral ID Status Reason Start Date Expiration Date Visits Requ ested Visits Authorized [id number] 1 1 Encounter Details Date Type Department Care Team Description 07/20/2017 Hospital Encounter 4 Herminia Ibarra MD [facility] [place] [address] Critical lower limb [facility] Arik Clement MD [facility] [place] [address] [place] [address] Social History Tobacco Use Types Packs/Day Years [...] home. Important Studies and Lab Data: Labs: [facility] Lab Results Component Value Date INR 1.5 [...] For any problems or questions please call [phone] ZELDA Smith, ex assistant/program director Nurse Clinician For issues on weeknights after 5pm and weekends please call [phone] and ask for the Vascular Fellow production sanitizer. General Instructions None Future Appointments and Orders Future Appointments Provider Department Dept Phone 08/04/2017 1:00 PM Daniele Mooney [place] [facility] [place] [phone] 08/04/2017 2:15 PM Arik Clement MD Vascular Surgery at [place] [phone] 09/07/2017 3:00 PM MAYRA CHACON Lab [facility] [phone] 09/07/2017 4:00 PM Luz Prescott MD Endocrinology at [place] [phone] Future Orders Complete By Expires Arterial Duplex Leg, Unil [VAS32 Custom] 07/27/2017 (Approximate) 01/26/2018 Process Instructions: There is no in-house vascular laborer wharf available on weeknights (5pm-8am), weekends, or holidays. IF THIS IS A REQUEST FOR AN EMERGENT STUDY DURING THOSE HOURS, please have the senior provider responsible for the patient page the Vascular Surgery Fellow/Senior Resident production sanitizer to discuss options. Scheduling Instructions: Questions: Indication for study/signs & symptoms: Right femoral PSA s/p cardiac cath Question to be answered: bloodflow to PSA Laterality: Right Is there a RIGHT LOWER EXTREMITY graft?: No Lower limb right segments: Common Femoral Is there a stent?: No At which location will this be performed?: [place] Referral to Home Health - at DISCHARGE [[id number] CPT(R)] As directed Process Instructions: Scheduling Instructions: Comments: DOCUMENTATION FOR VNA SERVICES (INCLUDING THOSE PATIENTS WITH MEDICARE COVERAGE REQUIRING HOME VNA SERVICES AND/OR HOSPICE SERVICES) PATIENT'S LOCATION: Gregory Fatima [address] [place] [address] [place] [phone] (home) Cell: Telephone Information: Childcare Provider's Name: self In discussion with the attending physician, it is certified that this patient is under their care and that they, or a Nurse Practitioner,Clinical Nurse specialist or Physician Soccer Referee who is working directly with them, had [...] CARE AGENCY: [facility] ([facility] [place] [facility]-is in [place] PHONE: [phone] FAX: [phone] Start of care: 24- 48 hours FOR [...] patient'sPCP: Lovely Vicente MD [address] [facility] [place] / [place] [address] All VNA agencies which cover the area [...] For any problems or questions please call [phone] ZELDA Smith, ex assistant/program director Nurse Clinician For issues on weeknights after 5pm and weekends please call [phone] and ask for the Vascular Fellow production sanitizer. documented in this encounter Medications at Time [...] - 07/20/2017 2:53 PM EST The patient/medical collections representative has been provided a list of Home Health Agencies/DME vendors which serve their preferred geographic area. A letter describing our affiliations was reviewed with them and theywere educated about their right to choose where referrals are placed. Patient requests referral to [facility]. PHONE: [phone] FAX: [phone]. Expected date of discharge: 07/20/2017 . Referral routed to the Nail Making Machine Setter for matching with agency/vendor and to provide any required information. Naty Pulliam RN - 07/20/2017 11:37 AM EST The patient/medical collections representative has been provided a list of Home Health Agencies/DME vendors which serve their preferred geographic area. A letter describing our affiliations was reviewed with them and theywere educated about their right to choose where referrals are placed. Patient requests referral to [facility] ([facility] [place] [facility]- is in [facility] [place] PHONE: [phone] FAX: [phone]. Expected date of discharge: 07/20/2017 . Referral routed to the Nail Making Machine Setter for matching with agency/vendor and to provide any required information. Katina Pulliam RNappian bpm developer Janneth Lee MD - 07/20/2017 7:29 AM [...] SETUP performed by Manny Mcknight MD at [facility] MAIN OR ??? PRO CABG, ARTERIAL, SINGLE N/A 07/07/2017 @CABG, USING ARTERIAL GRAFT;SINGLE ARTERIAL GRAFT (WRVU 33.75) performed by Yuan Retana MD at [facility] MAIN OR ??? PRO CABG, ARTERY-VEIN, TWO N/A 07/07/2017 @CABG, TWO VENOUS GRAFTS & ARTERIAL GRAFT (WRVU 7.93) performed by Yuan Retana MD at [facility] MA[facility] OR ??? PRO COLONOSCOPY, REMV LESN, SNARE 01/16/2014 COLONOSCOPY, POLYPECTOMY, REMOVAL LESION BY SNARE performed by Nohemi Jaimes MD at [facility] ENDOSCOPY ??? PRO ENDOSCOPY W/VIDEO-ASST VEIN HARVEST, CABG Right 07/07/2017 ENDOSCOPIC HARVEST VEIN(S) FOR CABG (WRVU 0.31) performed by Yuan Retana MD at [facility] MAIN OR ??? PRO THYROIDECTOMY 03/28/2013 THYROIDECTOMY, TOTAL OR COMPLETE performed by aMnny Mcknight MD at [facility] MAIN OR Functional Status/Social Hx: Social [...] -ISS -pain control Discussed with Vascular Fellow production sanitizer. Chris Valadez MD PGY2 Pager [phone] documented in this encounter ED Notes Annita [...] Health/Prescription Coverage: Primary Insurance: MEDICARE Secondary Insurance: [email or web address] [facility] Prescription Coverage: See above Preferred Pharmacy: [facility] Other: N/A Primary Care Provider: Lovely Vicente MD [phone] Patient/Caregiver Goals of Treatment: Patient plans to return home when medically ready Potential Needs for Transition of Care: Rehab/SNF: N/A Home Health: [facility]ung[facility] ([facility] [place] [facility]-is in [place]) PHONE: [phone] FAX: [phone] DME: N/A Dialysis: N/A Community Resources: N/A Transportation: Patient family will transport Other: N/A Anticipated Barriers to Discharge/Special Considerations: None Plan: Patient plans to return home with home health services when medically ready A member of the Care Management team will continue to monitor progress, follow for continuity of care and assist with transition of care planning. Naty Pulliam, RN Pager: [phone] ED Triage - Rayna Weir RN - 07/20/2017 12:28 AM EST Pt transferred from [place] for blue right foot and painful toes. [...] Dolan MD [facility] [place], [place] [address] (Wo rk) 05/28/2022 Laboratory Appointment Lab 05/28/2022 Office Visit Cardiology Zulma Dolan MD [facility] [place] [address] Liz Poole PA [facility] [place] [address] 06/10/2022 Office Visit Dermatology Laura Scherer MD [facility] [address] [place], [place] [address] (Wo rk) documented as of this encounter Procedures Procedure Name Priority Date/Time Associated Comments Diagnosis CHAIRMAN & CEO SCAN 09/02/2017 12:00 Res ults for this [...] i n ([facility] the results section. APTT STAT 07/20/2017 [...] documented in this encounter Results SCAN DOC: CHAIRMAN & CEO (09/02/2017 12:00 AM EST) Narrative 09/02/2017 12:00 AM EST This result has an attachment that is no t available. Ordered by an unspecified provider. Scanning Provider MEDIA MGR SCAN EXT ORDR/RSLT POCT Glucose (07/20/2017 12:04 PM EST) P athologist Signature POC Glucose 189 65 - 199 [place] mg/dL [facility] Comment: Supplemental ranges: <140 mg/dL before meals <180 mg/dL all other times of the day Specimen Anatomical Collection Method Collection Time Receive d Time (Source) Location / / Volume Laterality Blood specimen 07/20/2017 12:04 7 (specimen) PM EST 12:04 PM EST Arik Clement MD POINT OF CARE TEST ORDERABLE S Performing Organization Address City/State/[place] [address] (ABNORMAL) Differential, Automated (07/20/2017 10:34 AM EST) Patholo gist Method Time Signature Neutrophils % 84.3 % [facility] Neutr Abs (ANC) 14.27 (H) 1.70 - [place] 6.10 [facility] x10(3)/[facility] LABORATORY Lymphocytes % 5.6 % [facility] Lymphocytes Abs 1.0 0.9 - 3.2 [place] x10(3)/[facility] LABORATORY Monocytes % 6.1 % [facility] Monocyte Abs 1.0 (H) 0.3 - 0.9 [place] x10(3)/[facility] LABORATORY Eosinophils % 2.4 % [facility] Eosinophils Abs 0.4 0.0 - 0.4 [place] x10(3)/[facility] LABORATORY Basophils % 0.5 % [facility] Basophils Abs 0.1 0.0 - 0.1 [place] x10(3)/[facility] LABORATORY Immature Gran % 1.10 % [facility] [...] Gran Abs 0.19 (H) 0.00 - 0.04 x10(3)/[facility] LABORATORY Specimen Anatomical Collection Method Collection Time Receive d Time (Source) Location / / Volume Laterality Blood specimen 07/20/2017 10:34 7 (specimen) AM EST 10:39 AM EST Resulting Agency Comment Spec In Lab Arik Clement MD HEMATOLOGY ORDERABLES Performing Organization Address City/State/[place] [address] (ABNORMAL) Hemogram (07/20/2017 10:34 AM EST) Analysis Performed At Patho logist Time Signature WBC 17.0 (H) 4.0 - 9.5 [facility] x10(3[facility] LABORATORY RBC 3.70 (L) 4.58 - [facility] 5.54 [facility] x10(6)/[facility] LABORATORY Hemoglobin 10.8 (L) 13.7 - [facility] 16.5 gm/dL [facility] Hematocrit 33.4 (L) 40.5 - [facility] 48.5 % [facility] MCV 90.3 82.9 - [facility] 93.1 [facility] LABORATORY MCH 29.2 27.5 - [facility] RYAN 32.1 pg [facility] MCHC 32.3 32.0 - [facility] RYAN 35.7 gm/dL [facility] Platelets 211 145 - 357 [place] x10(3)/[facility] LABORATORY RDWSD 49.1 (H) 36.0 - [facility] RYAN 45.0 [facility] LABORATORY RDWCV 14.7 (H) 11.4 - [facility] RYAN 13.8 % [facility] MPV 9.2 7.6 - 12.9 [facility] LABORATORY nRBC % Auto 0.0 % [facility] nRBC Abs Auto 0.000 0.000 - [place] RYAN 0.000 [facility] x10(3)/[facility] LABORATORY Specimen Anatomical Collection Method Collection Time Receive d Time (Source) Location / / Volume Laterality Blood specimen 07/20/2017 10:34 7 (specimen) AM EST 10:39 AM EST Resulting Agency Comment Spec In Lab Arik Clement MD HEMATOLOGY ORDERABLES Performing Organization Address City/State/[place] [address] (ABNORMAL) APTT (07/20/2017 10:34 [...] Clement MD HEMATOLOGY ORDERABLES Performing Organization Address City/[facility]/ZIP [place] [address] POCT Glucose (07/20/2017 7:41 AM EST) athologist Signature POC Glucose 174 65 - 199 [place] mg/dL [facility] Comment: Supplemental ranges: <140 mg/dL before meals <180 mg/dL all other times of the day Specimen Anatomical Collection Method Collection Time Receive d Time (Source) Location / / Volume Laterality Blood specimen 07/20/2017 7:41 AM 017 7:41 (specimen) EST AM EST Arik Clement MD POINT OF CARE TEST ORDERABLE S Performing Organization Address City/[facility]/ZIP Code Phon e Number [address] JULIAN, legs, multiple levels (07/20/2017 7:33 AM EST) Component Value Ref Test Analysis Performed At Patholo gist Range Method Time Signature VB Text Department: Vascular Surgery Lab VASCUBASE Report Patient: [id number] (GREGORY FATIMA) CPT: 34975 ICD10: I75.021;I99.8 Referring Physician: ARIK CLEMENT ?? [...] Department: Vascular Surgery Lab VASCUBASE Report Patient: [id number] (GREGORY FATIMA) CPT: 26353 ICD10: I97.610;I99.8 Referring Physician: ARIK CLEMENT ?? [...] da tabase for comparison. Notification: Dr. Manuela Weheler was informed of these prelimi nary findings. [...] Signature POC Glucose 199 65 - 199 [place] mg/dL [facility] Comment: Supplemental ranges: <140 mg/dL before meals <180 mg/dL all other times of the day Specimen Anatomical Collection Method Collection Time Receive d Time (Source) Location / / Volume Laterality Blood specimen 07/20/2017 3:41 AM 017 3:41 (specimen) EST AM EST Arik Clement MD POINT OF CARE TEST ORDERABLE S Performing Organization Address City/[facility]/ZIP [facility] [place] [address] Lactate, whole blood, send to lab (Leb/CGP) (07/20/2017 2:25 AM EST) athologist Signature Lactate WB 2.0 0.5 - 2.2 [place] mmol/L [facility] Specimen Anatomical Collection Method Collection Time Receive d Time (Source) Location / / Volume Laterality Blood specimen Venous Draw / 07/20/2017 2:25 AM 2016 2:37 (specimen) Unknown EST AM EST Resulting Agency Comment Spec In Lab Zulma Samuel MD CHEMISTRY ORDERABLES Performing Organization Address City/[facility] Code Phon e Number [address] (ABNORMAL) APTT (07/20/2017 2:25 [...] Reaves MD HEMATOLOGY ORDERABLES Performing Organization Address City/[facility]/[place] [address] (ABNORMAL) Prothrombin Time (07/20/2017 2:25 AM EST) athologist Signature PT 17.7 (H) 11.8 - 14.0 [facility] LABORATORY INR 1.5 (H) 0.9 [...] Organization Address City/State/[place] [address] (ABNORMAL) Basic Metabolic Panel (non-fasting) (07/20/2017 2:25 AM EST) P athologist Signature Glucose Lvl 187 65 - 199 [place] mg/dL [facility] Comment: Diabetes: >=200 mg/dL plus symp toms BUN 35 (H) 10 - 20 mg/dL [facility] Creatinine 1.51 (H) 0.80 - 1.50 mg/dL [facility] Sodium 134 (L) 135 - 145 mmol/L [facility] Potassium Not Perf 3.5 - 5.0 mmol/L [facility] Comment: Specimen hemolyzed. Called by: [facility], Read back by: Chitra Orantes, [...] CENTER LABORATORY Estimated GFR 46 (L) >=60 [facility] Comment: The reported eGFR should be multiplied b y 1.2 for patients. The MDRD is not an appropriate measure o f renal function for patients with body mass extremes or in patients with acute kidney failure. http://WeDidIt/DHnkdep http://WeDidIt/DHMCnkf Specimen Anatomical Collection Method Collection Time Receive d Time (Source) Location / / Volume Laterality Blood specimen 07/20/2017 2:25 AM 017 2:33 (specimen) EST AM EST Resulting Agency Comment Spec In Lab Annita Reaves MD CHEMISTRY ORDERABLES Performing Organization Address City/State/ZIP Code Phon e Number [place] [id number]OS[address] documented in this encounter [...]
Routine documented in this encounter Care Teams Wheat Cleaner Relationship Specialty Start Date End Date Lovely Vicente MD PCP - General 04/16/[address] [place] [address] documented as of this encounter
--- OUTSIDE RECORDS SUMMARY | 2022-04-08 08:53 | XMS_ITS | Encounter Summary ---
:1945 [place] [address] Care Team Providers Name Role Phone Lovely Vicente MD Primary Care Provider Encounter Details Date Type Department Care Team Description 07/16/2017 Telephone Endocrinology at [facility] C Manuela Holliday, [facility] [place] [address] ENDOCRINOLOGY DEPT [phone] [place], [place] [address] (Wo rk) Social History Tobacco [...] Dolan MD [facility] [address] [place], [place] [address] (Wo rk) 05/28/2022 Laboratory Appointment Lab 05/28/2022 Office Visit Cardiology Zulma Dolan [place] [facility] [place] [address] Liz Poole PA [facility] [place] [address] 06/10/2022 Office Visit Dermatology Laura Scherer MD [facility] [address] [place], [place] [address] (Wo rk) documented as of this encounter Visit Diagnoses Not on filedocumented in this encounter Care Teams Packer Insulation Relationship Specialty Start Date End Date Lovely Vicente MD PCP - General 04/16/[address] [place] [address] documented as of this encounter
--- OUTSIDE RECORDS SUMMARY | 2022-04-08 08:54 | XMS_ITS | Encounter Summary ---
:1945 Author Organization [facility] [place] [address] Care Team Providers Name Role Phone Lovely Vicente MD Primary Care Provider Encounter Details Date Type Department Care Team Description 07/08/2017 Orders Only [facility] [place] [address] Social History Tobacco Use Types Packs/Day [...] Dolan MD [facility] [place] [address] [place], [place] [address] (Wo rk) 05/28/2022 Laboratory Appointment Lab 05/28/2022 Office Visit Cardiology Zulma Dolan MD [facility] [place] [address] Liz Poole PA [facility] [place] [address] 06/10/2022 Office Visit Dermatology Laura Scherer MD [facility] [address] [place] [address] (Wo rk) documented as of this encounter [...] Mccollum ? (Age): 1945(72y) Med Rec#: ? [id number] ?Sex: ?M ? Site Loc: ? Ht / Wt: ??(cm)/ (kg) ? Pt. Loc: ? Study Date: ?? 07/07/2017 ?Pt. Type: Tape: ? Referring: Yuan Retana Reading: Yifan Perez MD ([id number]) Performing: Yifan Perez MD ([id number]) Diagnosis: SUMMARY: 1. Intraoperative AVELINO performed at the [facility] of Dr. Mike for the diagnosis [...] Mid-Inferior ?Hypokinetic ? Mid-Inferoseptal ?Hypokinetic ? [place]-Septal ? Hypokinetic ? [place]-Anterior ? Hypokinetic ? [place]-Lateral ?Hypokinetic ? [place]-Inferior ? Hypokinetic ? [place]-Tip ?Not Seen ? This report has been electronically sign ed by: _ Yifan Perez MD ? 07/08/2017 12 :25:18 Images reviewed and interpretation verif ied [facility] Cardiac Ultrasound Laboratory Procedure Note Yifan Perez MD - 07/08/2017Formatt ing of this note might be different from the original. Procedure: Transesophageal Echocardiogra m Patient: NATALYA MCBRIDE(Age): [birth year]72y) Med Rec#: [id number] Sex: M Site Loc: Ht / Wt: (cm)/ (kg) Pt. Loc: Study Date: 07/07/2017 Pt. Type: Tape: Referring: Yuan Retana Reading: Yifan Perez MD ([id number]) Performing: Yifan Perez MD ([id number]) Diagnosis: SUMMARY: 1. [facility] for the diagnosis and [...] Hypokinetic Mid-Posterolateral Hypokinetic Mid-Inferior Hypokinetic Mid-Inferoseptal Hypokinetic [place]-Septal Hypokinetic [place]-Anterior Hypokinetic [place]-Lateral Hypokinetic [place]-Inferior Hypokinetic [place]-Tip Not Seen This report has been electronically sign ed by: _ Yifan Perez MD 07/08/2017 12:25:18 Images reviewed and interpretation elvie hwang [facility] Cardiac Ultrasound Laboratory Unknown ECHO ORDERABLES documented in this encounter Visit Diagnoses Not on filedocumented in this encounter Care Teams Poultry Pinner Relationship Specialty Start Date End Date Lovely Vicente MD PCP - General 04/16/[address] [place] [address] documented as of this encounter
--- OUTSIDE RECORDS SUMMARY | 2022-04-08 08:54 | XMS_ITS | Encounter Summary ---
:1945 Author Organization [facility] [place] [address] Care Team Providers Name Role Phone Lovely Vicente MD Primary Care Provider Reason for Referral Consultation (Routine) - Closed Specialty Diagnoses / Referred By Contact Referred To Contact Procedures Cardiac Rehabilitation Diagnoses S/P CABG x 3 Yuan Webber, Cardiac Rehab, [address] [place] CARDIOTHORACIC [address] [place] [address] Referral ID Status Reason Start Date Expiration Date Visits V isits Requested Authorized [id number] Closed Consult, 07/14/2017 01/10/2018 36 36 Test & Treat Reason for Visit Auth/Cert Specialty Diagnoses / Procedures Referred By Contact Refer red To Contact Diagnoses STEMI (ST elevation myocardial infarction) NSTEMI STEMI Procedures CARDIAC CATHETERIZATION NAYE IPI Referral ID Status Reason Start Date Expiration Date Visits Requ ested Visits Authorized [id number] 1 1 Encounter Details Date Type Department Care Team Description 07/05/2017 - Hospital Encounter Cardiac Special Daphne Shahid MD [facility] [place] [address] Non-ST elevation myocardial infarction ( NSTEMI); 07/14/2017 Care Unit Yuan Preciado MD [facility] [place] [address] S/P CABG x 3 [place] [id number] Social History Tobacco Use Types Packs/Day Years [...] Patient Age: 72 y.o. Birthdate: 1945 Language: Moldovan Race: White Ethnicity: Not nor Admit Date: [...] , @ 1:20p Patient to follow-up with Finance Controller/heart failure team in one week. An appointment will be made for you. You may call [phone] Patient to follow-up with Cardiac Surgery, Dr. Yuan Webber, in ~ 4 weeks with CXR, EKG. Inpatient Provider Contact Information: [facility] Section of Cardiac Surgery [facility] [address] FAX [phone] Discharge Diagnoses (Hospital Problems) Primary Diagnoses: CAD [...] 33.75) performed by Yuan Webber MD at [facility] OR ??? PRO CABG, ARTERY-VEIN, TWO N/A 07/07/2017 @CABG, TWO VENOUS GRAFTS & ARTERIAL GRAFT (WRVU 7.93) performed by Yuan Webber MD at [facility] OR ??? PRO COLONOSCOPY, REMV LESN, SNARE 01/16/2014 COLONOSCOPY, POLYPECTOMY, REMOVAL LESION BY SNARE performed by Nohemi Jaimes MD at [facility] ENDOSCOPY ??? PRO ENDOSCOPY W/VIDEO-ASST VEIN HARVEST, CABG Right 07/07/2017 ENDOSCOPIC HARVEST VEIN(S) FOR CABG (WRVU 0.31) performed by Yuan Webber MD at [facility] OR ??? PRO THYROIDECTOMY 03/28/2013 THYROIDECTOMY, TOTAL OR COMPLETE performed by Manny Mcknight MD at [facility] OR Prior To Admission Medications Prescriptions Prior to Admission Medication Sig Dispense Refill Last Dose ??? levothyroxine (SYNTHROID) 175 mcg Tablet Take 1 tablet by mouth daily. 90 tablet 3 07/05/2017 [id number] ??? ascorbic acid, vitamin C, (VITAMIN C) [...] Gregory Hoang was admitted to [facility] on 07/05/2017 via the Cardiology Service. During his hospital course, he was taken emergently to the lab nurse for an ongoing STEMI. An IABP was [...] not take or discontinue any prescription or ealj-tzn-wyawfwy medications without asking your doctor or pharmacist [...] day to have your insulin doses adjusted. [facility] Endocrine clinic office Discharge Instructions: Call your doctor if: You have a fever of greater than 101 degrees, shaking chills, if you develop redness or drainage from your incision sites, or if you have questions. Please call your surgeon's office if you have any discharge or drainage from your chest incision. Your surgeon, Dr. Yuan Webber and/or the Cardiac Surgery Physician Telephoto Engineer Team may be reached at . [...] Dr. Yuan Webber. You may use a [place] Track or treadmill but avoid any pulling [...] friends, go to a movie, go to latter-day, etc. Heavy activities: No hunting, skiing, jogging, snow shoveling, snowmobiling, lawn mowing, swimming, golf or tennis until after your return appointment with the surgeon. Do not ride motorcycles, [employer]s tractors or horses. Avoid the use [...] should resume a low fat, low cholesterol, [place] Heart Association Diet/Diabetic diet. Driving: No driving [...] , @ 1:20p Patient to follow-up with Finance Controller/heart failure team in one week. Appointment will be made for you. You may call [phone] Patient to follow-up with Cardiac Surgery, Dr. [...] THREE L Lab 3L [facility] [phone] 09/07/2017 4:00 PM Luz Prescott MD Endocrinology at [place] [phone] Future Orders Complete By Expires EKG 12 Lead [EKG1 Custom] 08/14/2017 02/13/2018 Process Instructions: Scheduling Instructions: Questions: Which location will this be performed?: [place] Is a rhythm strip needed?: No If EKG Reason is Pre-op Evaluation, indicate diagnosis for surgery.: XR Chest PA & Lateral (Generic) [15034 36707 Custom] 08/14/2017 02/13/2018 Process Instructions: Scheduling Instructions: Questions: Where will study be performed?: [place] Rad[facility] Portable exam?: Reason for exam and clinical history: CABG x 3 Other pertinent information: Stat read required?: Date of injury if applicable: Requested Time: Referral to Cardiac Rehab [AOD745 Custom] As directed Process Instructions: If no progress note charted, please enter Clinical details in comments. Scheduling Instructions: Questions: My question or request is: s/p CABG. Cardiac rehab at [facility] Referral to Home Health - at DISCHARGE [[id number] CPT(R)] As directed Process Instructions: Scheduling Instructions: Comments: DOCUMENTATION FOR VNA SERVICES (INCLUDING THOSE PATIENTS WITH MEDICARE COVERAGE REQUIRING HOME VNA SERVICES AND/OR HOSPICE SERVICES) PATIENT'S LOCATION: Gregory Hoang [address] [place] [address] [place] [id number] (home) Telephone Information: Sidewalk Repairer's Name: self In discussion with the attending physician, it is certified that this patient is under their care and that they, or a Nurse Practitioner, or Physician Telephoto Engineer who is working directly with them, [...] HEALTH AGENCY: [facility] ([facility] [place] [facility] in [place], [place]) PHONE: [phone] FAX: [phone] RN orders: Cardiopulmonary assessment, incisional assessment, assess vital signs, assessment of rehab progress, medication management and effectiveness, home safety evaluation. Please draw INR if indicated and send result to:Dr Vicente [phone] PT ORDERS: Continue rehab for endurance, gait stability and strength with mobility and transfers. Home safety evaluation. Home exercise program if appropriate. Start of Care Date:24-48 hours after discharge SPECIAL INSTRUCTIONS: For any follow up questions, needs, or issues please call the Cardiac Surgery Office at [phone] FOR MEDICARE ONLY: (please delete this section [...] OR AFTER 07/17/2017 Signed: Martha Teague APRN [facility] of Cardiac Surgery [facility] [address] FAX [phone] Date: 07/14/2017 CC: MD Ivania Cr Betsy, PA [address] [place] [phone] documented in this encounter Discharge Instructions Discharge [...] day to have your insulin doses adjusted. [facility] Endocrine clinic office Patient InstructionsStMartha [...] not take or discontinue any prescription or yrtl-bxk-baodxja medications without asking your doctor or pharmacist [...] juice or regular (not diet) soda 6 Socures small box of raisins 4 glucose tablets [...] day to have your insulin doses adjusted. [facility] Endocrine clinic office ? Discharge [...] Yuan Webber and/or the Cardiac Surgery Physician Telephoto Engineer Team may be reached at . [...] Dr. Yuan Webber. You may use a [place] Track or treadmill but avoid any pulling [...] friends, go to a movie, go to latter-day, etc. ?? Heavy activities: No hunting, skiing, jogging, snow shoveling, snowmobiling, lawn mowing, swimming, golf or tennis until after your return appointment with the surgeon. Do not ride motorcycles, [employer] tractors or horses. Avoid the use of [...] should resume a low fat, low cholesterol, [place] Heart Association Diet/Diabetic diet. ?? Driving: No [...] @ 1:20p ?? Patient to follow-up with Finance Controller/heart failure team in one week. An appointment has been made for you, you can call [phone] ?? Patient to follow-up with Cardiac Surgery, [...] THREE L Lab 3L [facility] [phone] ?? 09/07/2017 4:00 PM Luz Prescott MD Endocrinology at [place] [phone] Future Orders Complete By Expires ?? EKG 12 Lead [EKG1 Custom] 08/14/2017 02/13/2018 ?? Process Instructions: ? Scheduling Instructions: ? Questions: ? Which location will this be performed?: [place] ?? Is a rhythm strip needed?: No ?? If EKG Reason is Pre-op Evaluation, indicate diagnosis for surgery.: ?? XR Chest PA & Lateral (Generic) [31525 13830 Custom] 08/14/2017 02/13/2018 ?? Process Instructions: ? Scheduling Instructions: ? Questions: ? Where will study be performed?: [place] Rad[facility] ?? Portable exam?: ?? Reason for exam and clinical history: CABG x 3 ?? Other pertinent information: ?? Stat read required?: ?? Date of injury if applicable: ?? Requested Time: ?? Referral to Cardiac Rehab [[id number] Custom] As directed ? Process Instructions: ?? [...] RN - 07/14/2017 2:34 PM EST The patient/financial foundations representative has been provided a list of Home Health Agencies/DME vendors which serve their preferred geographic area. A letter describing our affiliations was reviewed with them and theywere educated about their right to choose where referrals are placed. Patient requests referral to [facility] PHONE: [phone] FAX: [phone] Expected date of discharge: 07/14 Referral routed to the Floor Trader for matching with agency/vendor and to provide [...] day to have your insulin doses adjusted. [facility] Endocrine clinic office Kathie Carrera APRN [facility] Endocrinology Diabetes Management Pager [phone] minutes of this 35 minute visit was spent with the patient in counseling on diabetes and treatment plan, reviewing all glucose and insulin data as well as relevant laboratory results with the patient, and coordination of care on the inpatient unit including nursing and primary team. Zulma Andres, RN - 07/14/2017 10:30 AM EST The patient/financial foundations representative has been provided a list of Home Health Agencies/DME vendors which serve their preferred geographic area. A letter describing our affiliations was reviewed with them and theywere educated about their right to choose where referrals are placed. Patient requests referral to : [facility] ([facility] [place] [facility] in [place] PHONE: [phone] FAX: [phone]. Expected date of discharge: 07/14/17 Referral routed to the Floor Trader for matching with agency/vendor and to provide [...] hours. If BG remains greater than 240, dmnuin24 units (no more than three times) &??call [...] #6 s/p CABG X3. FSBG 80 at [place], reports no symptoms but did drink some [...] Will continue to follow Katerin Azul APRN [facility] Endocrinology Diabetes Management Pager [phone] minutes of this 25 minute visit [...] of infiltration/extravasation Discussed plan of care with VIDEO INTERN and RN. Elevate exrtemity and apply intermittent Warm compresses. Name of MD contacted Dr. Shaw Brown 07/13/2017 @ 0613 Name of RN contacted Ale Rangel RN Name of Pharmacist if consulted NA Name of Plastics MD ( if consulted) NA (Mandatory photo for infiltrations/ extravasations scoring a stage 2 or greater, but recommended forstage 1)( include measuring tape and identifier in the photo) AMBULANCE DRIVER PARAMEDIC CARING FOR THIS PATIENT WILL CONTINUE TO [...] measuring tape and identifier in the photo) AMBULANCE DRIVER PARAMEDIC CARING FOR THIS PATIENT WILL CONTINUE TO [...] to both infiltrates addressed by this automobile service writer.All of Mr. Hoang's responses were entirely appropriate. Images of infiltrates attached here. Martha Sharp APRN - 07/13/2017 8:01 AM EST Cardiac Surgery Progress Note: ID: [id number] 72 year old male POD#6 s/p CABGx3 [...] discharge. ?? I have met with the patient/financial foundations representative to discuss discharge planning needs. I have provided the [facility], Office of Care Management letter from the Slice Cutting Machine Operator pertaining to rehab referrals. I have also provided a letter describing our affiliations within the [facility] and educated them about their right to choose where referrals are placed. ?? I reviewed the different levels of rehab including SNF, swing, acute and LTAC with the patient/financial foundations representative. ?? The patient/financial foundations representative has been provided a list of facilities within their preferred geographic area. ?? I have requested that the patient/financial foundations representative provide at least three choices for referral. ?? The patient/financial foundations representative have requested referrals to: ?? 1. . ?? 2. [facility] ?? 3. More to be entered ?? Expected date of discharge: 07/14 Note routed to Floor Trader who will communicate referrals to facilities and [...] hours. If BG remains greater than 240, imvhbl92 units (no more than three times) & [...] hours. If BG remains greater than 240, nqsaju04 units (no more than three times) & call for new basal insulin orders. ??If less than 240 after two hours, give no insulin and resume prior schedule. Will continue to follow Katerin Patel. STACIE Azul [facility] Endocrinology Diabetes Management Pager [phone] 20 minutes of this 35 minute visit was spent with the patient in counseling on diabetes and treatment plan, reviewing all glucose and insulin data as well as relevant laboratory results with the patient, and coordination of care on the inpatient unit including nursing and primary team. Makayla Stevenson APRN - 07/12/2017 9:52 AM EST Cardiac Surgery Progress Note: ID: [id number] 72 year old male POD#5 s/p CABGx3 [...] 07/11/2017 7:18 PM EST Patient arrived from [facility]. VSS. MSI dressing pulled off [...] AM EST Cardiac Surgery Progress Note: ID: [id number] 72 year old male POD#4 s/p CABGx3 [...] hours. If BG remains greater than 240, eqlfyl83 units (no more than three times) & [...] AM EST Cardiac Surgery Progress Note: ID: [id number] 72 year old male POD#3 s/p CABGx3 [...] Gas) No results found for: PHART, PO2ART, QBD8CGS Assessment/Plan: 72 year old male POD#3 s/p [...] Encounter Note Patient Name: Gregory Hoang : [id number] MR#: [id number] Admit Date: 07/05/2017 4:20 PM Hospital Day 4 days Narrative: Patient was sitting in chair, hugging heart pillow, opened his eyes, nodding to come into room Assessment: Patient was sleepy. Intervention and Outcome: Introduced volunteer services manager services and patient reached his hand out in appreciation. Follow-up: Sec Reporting Consultant remains available for support. Time in [...] 07/09/2017 10:45 AM EST Report given to engineer technical staff to cover care Maddison Cee PA - 07/09/2017 9:00 AM EST Cardiac Surgery Progress Note: ID: [id number] 72 year old male POD#2 s/p CABGx3 [...] on rounds. Signed: STEPHANIE Iqbal [facility] Section of Cardiac Surgery Date: 07/09/2017 Magnolia Santiago [facility] - 07/09/2017 1:33 AM [...] when IABP d/c'ed. Gretchen Carolina, PT Pager [phone] Maddison Cee PA - 07/08/2017 11:27 AM EST Cardiac Surgery Progress Note: ID: [id number] 72 year old male POD#1 s/p CABGx3 [...] on rounds. Signed: STEPHANIE Iqbal [facility] Section of Cardiac Surgery Date: 07/08/2017 [...] unit. NICK SEGAL MD 07/08/2017 Jay Munoz [facility] - 07/08/2017 4:33 AM [...] in place in R femoral. No hematoma. HAIR SPECIALIST- Intact Psych- Anxious Skin- Dry, no peripheral [...] intact. IABP in place in R femoral. HAIR SPECIALIST- Intact Psych- Anxious Skin- Dry, no peripheral [...] note for details. DAPHNE SHAHID MD Pager [phone] Jet Mckenna MD - 07/05/2017 6:48 PM EST Preliminary Cardiac Catheterization Procedure Note: Procedure(s) performed: Left heart cath, IABP insertion Access: Right DERMATOLOGICAL SURGEON-->8fr IABP A time-out was conducted prior to [...] Heparin gtt maintained. Pt transferred to lab nurse. documented in this encounter H&P Notes Daphne Shahid MD - 07/05/2017 6:08 PM EST CARDIOLOGY HISTORY & PHYSICAL EXAM Date of Admission: 07/05/2017 ( Hospital Day 0 days ) Responsible Attending: Daphne Shahid MD PCP: Lovely Vicente MD PCP#: [phone] Patient Active Problem List Diagnosis Code ??? [...] significant valvular disease. Taken to the lab nurse urgently for ongoing STEMI. [facility] [...] I/O - s/p lasix in the lab nurse, redose to aim net neg 1L by [...] Medicine, PGY-2 Cardiology S1, Team Pager # [phone] CARDIOLOGY ATTENDING NOTE Patient: Gregory Hoang Date [...] amenable for PCI. DAPHNE SHAHID MD Pager [phone] documented in this encounter Miscellaneous Notes Consult Note - Daphne Shahid MD - 07/14/2017 11:46 AM EST Heart Failure Service Inpatient Consult Note Gregory Hoang Date of : 1945 Age: 72 y.o. Today's date: 07/14/17 PCP: Lovely Vicente MD CLEANING CREW MEMBER: None Place of Service: [facility] [...] 33.75) performed by Yuan Webber MD at [facility] OR ??? PRO CABG, ARTERY-VEIN, TWO N/A 07/07/2017 @CABG, TWO VENOUS GRAFTS & ARTERIAL GRAFT (WRVU 7.93) performed by Yuan Webber MD at [facility] OR ??? PRO COLONOSCOPY, REMV LESN, SNARE 01/16/2014 COLONOSCOPY, POLYPECTOMY, REMOVAL LESION BY SNARE performed by Nohemi Jaimes MD at [facility] ENDOSCOPY ??? PRO ENDOSCOPY W/VIDEO-ASST VEIN HARVEST, CABG Right 07/07/2017 ENDOSCOPIC HARVEST VEIN(S) FOR CABG (WRVU 0.31) performed by Yuan Webber MD at [facility] ??? PRO THYROIDECTOMY 03/28/2013 THYROIDECTOMY, TOTAL OR COMPLETE performed by Manny Mcknight MD at [facility] OR Outpt Meds: Current Outpatient Prescriptions [...] following studies: EKG 07/14/17: NSR 75 bpm, SPA DIRECTOR/FINANCE anterior infarct, LAD CXR 07/11/17: FINDINGS: Sternotomy wires. The patient has been extubated, left chest tube removed, and [place]-Suzi catheter removed since the 07/07/2017 study. Atelectasis [...] was discussed with Zehra. Jaden Kelley MD Global Compensation Director Pager [phone] CARDIOLOGY ATTENDING NOTE Patient: Gregory Hoang Date [...] heart failure clinic. DAPHNE SHAHID MD Pager [phone] Plan of Care - Alden Chavarria, FRONT TENDER - 07/14/2017 11:35 AM EST Problem: Patient [...] Discharge Disposition: home with assist Alden Chavarria, FRONT TENDER Pager: [phone] Inpatient Physical Therapy Problem: Acute Rehab Services [...] supine -- Bed Mobility Goal, [place] Level supervision required -- Bed Mobility Goal, [...] - 3 days -- Gait Training Goal, [place] Level supervision required -- Gait Training Goal, [...] days -- Transfer Training Goal, Activity Type tol-ef-wwalh/frnqm-tp-ail;juy-ho-phmjf/gwxwl-gr-ywe;toilet -- Transfer Train Goal, [place] Level supervision required -- Transfer Training Goal, [...] keeping present for 2 days per family. Cable Technician noted of frustrations, house keeping sent to room. Patient offered showered twice, refused. at bedside, frustrated that shower not complete, informed that patient had refused several times. requesting to see EMERGENCY MANAGEMENT CONSULTANT, paged sent to Martha, will come to bedside (middle of consult). not willing to wait, Martha notified that family had gone home. Encouraged to come for morning rounds a t 8am. Diabetes team at bedside - insulin adjustments made. Call cabello in reach. Continue to monitor. PLAN MOVING FORWARD: Ambulate, dressing changes BID, Please change drsg at 4am per Martha EMERGENCY MANAGEMENT CONSULTANT request. INDIVIDUALIZED FALL PREVENTION INTERVENTIONS: Patient-specific [...] levels on the lower side, 60ml of [place] juice given after a FS of [...] 07/13/17 0502 Interdisciplinary Rounds/Family Conf Participants case packer;dietitian/nutrition services;nursing;occupational therapy;patient;pharmacy;physical therapy;physician Plan of Care - [...] Anticipated Discharge Disposition: home with assist Pager: [phone] CLARISSA SEGAL, PT 07/12/2017 Physical Therapy Rehabilitation [...] to supine Bed Mobility Goal, [place] Level supervision required Bed Mobility Goal, Additional Goal adheres to psternal precautions for transfer Goal: Gait Training Goal Stand Alone Therapy Goal Outcome: Ongoing (Interventions Implemented as Appropriate) 07/12/17 1225 Gait Training Goal Gait Training Goal, Date Established 07/12/17 Gait Training Goal, Time to Achieve 2 - 3 days Gait Training Goal, [place] Level supervision required Gait Training Goal, Assist [...] 3 days Transfer Training Goal, Activity Type awv-ut-rxncu/xqdzf-ol-wie;swx-jf-ughsa/epssa-vo-nbf;toilet Transfer Train Goal, [place] Level supervision required Transfer Training Goal, Additional Goal adheres to sternal precautions during transfer Consult Note - Octavia Vaughn RN - 07/12/2017 10:50 AM EST [facility] CARDIAC REHABILITATION Gregory Hoang was [...] IV site, amio to other piv and MOLD STACKER at bedside to help assess, IV removed. [...] Outcome: Ongoing (Interventions Implemented as Appropriate) 07/11/17199907/11/17200907/12/17 [facility] Daily Care Interventions Self-Care Promotion -- [...] staff, he stood and marched in place. [place] weak, wanting to sit back down. Remained [...] Outcome: Ongoing (Interventions Implemented as Appropriate) 07/05/17 0017 Mutuality/Individual Preferences What Anxieties, Fears or Concerns [...] Health/Prescription Coverage: Primary Insurance: MEDICARE Secondary Insurance: [employer] [place] Prescription Coverage: yes Preferred Pharmacy: [facility] [place] Other: none Primary Care Provider: Lovely Vicente MD [phone] Patient/Caregiver Goals of Treatment:live and get my breath back Potential Needs for Transition of Care: Rehab/SNF: [facility]; [facility] Home Health: NA DME: TBD Dialysis: na Community Resources: available Transportation: yes Other: none Anticipated Barriers to Discharge/Special Considerations: none Plan: Likely SNF Rehab before home A member of the Care Management team will continue to monitor progress, follow for continuity of care and assist with transition of care planning. ERLIN Weiss Pager: [phone] Consult Note - Katerin Azul RN - [...] potential to d/c gtt and start CF. FDC diabetes care: Medications - Outpatient treatment regimen recommendations pending based on the hospital course. Monitoring - continue BG tid ac & hs Diet - low fat/low carb diet Exercise - weight-bearing exercise 30 min/day, as tolerated Thank you for allowing us to provide care for your patient W/E coverage, Dr. Jeane Tatum, pager [phone] Katerin Patel. STACIE Azul Endocrinology Diabetes Management Pager [phone] Plan of Care - Stephanie Godoy RN [...] Webber MD - 07/07/2017 6:27 PM EST [facility] Operative Note Patient Name: Gregory Hoang : [id number] MR#: [id number] Case Date: 07/07/2017 Surgeon: Surgeon(s) and Role: * Yuan Webber MD - Primary * Michael Drake PA - Physician Telephoto Engineer * Linda Flores PA - Physician Telephoto Engineer Preoperative diagnosis: 3VD Postoperative diagnosis: CAD, [...] Operative Note Patient Name: Gregory Hoang : [id number] MR#: [id number] Case Date: 07/07/2017 Surgeon: Surgeon(s) and Role: * Yuan Webber MD - Primary * Michael Drake PA - Physician Telephoto Engineer * Linad Flores PA - Physician Telephoto Engineer Preoperative diagnosis: 3VD Postoperative diagnosis: CAD, [...] code status: Full Code Katty Jovani, MS3 [facility] [facility] S1 (Pager [phone]) Plan of Care - Emelia Ibarra RN [...] at [facility] ENDOSCOPY ??? PRO THYROIDECTOMY 03/28/2013 THYROIDECTOMY, TOTAL OR COMPLETE performed by Manny Mcknight MD at [facility] MAIN OR Social History: Social History [...] with other involved physicians Yuan Webber MD [phone] Med Student Progress Note - Jovani Katty [...] BiPAP - s/p lasix in the lab nurse, was net -1.5L - s/p plavix load, [...] FULL - Dispo: CVCC Katty Hahn, M3 [facility] Cardiology S1 (Pager [phone]) Plan of Care - Stephanie Godoy RN [...] urinal without difficulty. Lasix given in lab nurse, 1.4 L out at this time. Pt [...] Dolan MD [facility] [address] [place], [place] [address] (Wo lissa) 05/28/2022 Laboratory Appointment Lab 05/28/2022 Office Visit Cardiology Zulma Dolan MD [facility] [place] [address] Liz Poole PA [facility] [place] [address] 06/10/2022 Office Visit Dermatology Laura Scherer MD [facility] [address] [place], [place] [address] (Wo rk) Scheduled Orders Name [...] procedure are i n the results section. SP[employer] SYSTEM[employer] OPERATIONS MANAGER SCAN 07/15/2017 12:00 Res ults [...] Routine 07/08/2017 4:00 Results f or this ([facility] [place] AM EST procedure are [...] section. TYPE AND SCREEN Routine 07/06/2017 12:00 ([facility]/SHANDA) PM EST APTT STAT 07/06/2017 [...] Routine 07/06/2017 8:10 Results f or this ([facility]) AM EST procedure are i [...] Routine 07/05/2017 8:20 Results f or this ([facility]) PM EST procedure are i [...] Timed 07/05/2017 4:55 Results f or this ([facility]) PM EST procedure are i [...] 2017 EXAMINATION: XR CHEST PA AND LATERAL ([employer]) CLINICAL HISTORY: CABG x 3 TECHNIQUE: PA [...] Teague APRN IMG DX ORDERABLES SCAN DOC: SPACE SYSTEM[employer] 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 (07/15/2017 12:00 AM EST) Narrative [...] Signature POC Glucose 186 65 - 199 [facility]dL [facility] Comment: Supplemental ranges: <140 mg/dL before meals <180 mg/dL all other times of the day Specimen Anatomical Collection Method Collection Time Receive d Time (Source) Location / / Volume Laterality Blood specimen 07/14/2017 11:56 7 (specimen) AM EST 11:56 AM EST Yuan Webber MD POINT OF CARE TEST ORDERABLE S Performing Organization Address City/[facility]/[place] [address] POCT Glucose (07/14/2017 7:52 AM EST) athologist Signature POC Glucose 126 65 - 199 [facility] mg/dL [facility] Comment: Supplemental ranges: <140 mg/dL before meals <180 mg/dL all other times of the day Specimen Anatomical Collection Method Collection Time Receive d Time (Source) Location / / Volume Laterality Blood specimen 07/14/2017 7:52 AM 017 7:52 (specimen) EST AM EST Yuan Webber MD POINT OF CARE TEST ORDERABLE S Performing Organization Address City/State/[place] [address] (ABNORMAL) Prothrombin Time (07/14/2017 [...] Wilson STACIE HEMATOLOGY ORDERABLES Performing Organization Address City/[facility]/[place] [address] Potassium (07/14/2017 4:46 AM EST) athologist Signature Potassium 4.3 3.5 - 5.0 [facility] mmol/L [facility] Comment: Please note: ??Patients with [...] Wilson STACIE CHEMISTRY ORDERABLES Performing Organization Address City/[facility]/[place] [address] POCT Glucose (07/14/2017 4:34 AM EST) athologist Signature POC Glucose 115 65 - 199 [facility] mg/dL [facility] Comment: Supplemental ranges: <140 mg/dL before meals <180 mg/dL all other times of the day Specimen Anatomical Collection Method Collection Time Receive d Time (Source) Location / / Volume Laterality Blood specimen 07/14/2017 4:34 AM 017 4:34 (specimen) EST AM EST Yuan Webber MD POINT OF CARE TEST ORDERABLE S Performing Organization Address City/State/ZIP Code Phon e Number [address] POCT Glucose (07/13/2017 11:33 PM EST) athologist Signature POC Glucose 132 65 - 199 [facility] mg/dL [facility] [...] Address City/State/ZIP Code Phon e Number [address] POCT Glucose (07/13/2017 9:25 PM EST) athologist Signature POC Glucose 121 65 - 199 [facility] SU mg/dL [facility] [...] Address City/State/ZIP Code Phon e Number [address] POCT Glucose (07/13/2017 4:55 PM EST) athologist Signature POC Glucose 79 65 - 199 [facility] mg/dL [facility] [...] Address City/State/ZIP Code Phon e Number [address] POCT Glucose (07/13/2017 11:16 AM EST) athologist Signature POC Glucose 163 65 - 199 [facility] mg/dL [facility] Comment: Supplemental ranges: <140 mg/dL before meals <180 mg/dL all other times of the day Specimen Anatomical Collection Method Collection Time Receive d Time (Source) Location / / Volume Laterality Blood specimen 07/13/2017 11:16 7 (specimen) AM EST 11:16 AM EST Yuan Webber MD POINT OF CARE TEST ORDERABLE S Performing Organization Address City/State/ZIP Code Phon e Number [address] POCT Glucose (07/13/2017 8:07 AM EST) athologist Signature POC Glucose 96 65 - 199 [facility] mg/dL [facility] Comment: Supplemental ranges: <140 mg/dL before meals <180 mg/dL all other times of the day Specimen Anatomical Collection Method Collection Time Receive d Time (Source) Location / / Volume Laterality Blood specimen 07/13/2017 8:07 AM 017 8:07 (specimen) EST AM EST Yuan Webber MD POINT OF CARE TEST ORDERABLE S Performing Organization Address City/State/ZIP Code Phon e Number [address] (ABNORMAL) Prothrombin Time (07/13/2017 [...] Address City/State/ZIP [place] [address] (ABNORMAL) Basic Metabolic Panel (non-fasting) (07/13/2017 4:26 AM EST) athologist Signature Glucose Lvl 95 65 - 199 [facility] mg/dL [facility] Comment: Diabetes: >=200 mg/dL plus symp toms BUN 25 (H) 10 - 20 mg/dL [facility] Creatinine 1.19 0.80 - 1.50 mg/dL [facility] Sodium 143 135 - 145 mmol/L [facility] Potassium 3.7 3.5 - 5.0 mmol/L [facility] [...] - 15 mmol/L [facility] Calcium 7.7 (L) 8.5 - 10.5 mg/dL [facility] Estimated GFR 60 >=60 [facility] Comment: The reported eGFR should be multiplied b y 1.2 for patients. The MDRD is not an appropriate measure o f renal function for patients with body mass extremes or in patients with acute kidney failure. http://[employer]/DHnkdep http://[employer]/DHMCnkf Specimen Anatomical Collection Method Collection Time Receive d Time (Source) Location / / Volume Laterality Blood specimen 07/13/2017 4:26 AM 017 4:46 (specimen) EST AM EST Resulting Agency Comment Spec In Lab Makayla Wilson APRN CHEMISTRY ORDERABLES Performing Organization Address City/[facility]/ZIP Code Phon e Number [address] POCT Glucose (07/13/2017 3:52 AM EST) athologist Signature POC Glucose 93 65 - 199 [facility] mg/dL [facility] Comment: Supplemental ranges: <140 mg/dL before meals <180 mg/dL all other times of the day Specimen Anatomical Collection Method Collection Time Receive d Time (Source) Location / / Volume Laterality Blood specimen 07/13/2017 3:52 AM 017 3:52 (specimen) EST AM EST Yuan Webber MD POINT OF CARE TEST ORDERABLE S Performing Organization Address City/[facility]/ZIP Code Phon e Number [address] POCT Glucose (07/13/2017 12:21 AM EST) athologist Signature POC Glucose 80 65 - 199 [place] mg/dL [facility] Comment: Supplemental ranges: <140 mg/dL before meals <180 mg/dL all other times of the day Specimen Anatomical Collection Method Collection Time Receive d Time (Source) Location / / Volume Laterality Blood specimen 07/13/2017 12:21 7 (specimen) AM EST 12:21 AM EST Yuan Webber MD POINT OF CARE TEST ORDERABLE S Performing Organization Address City/[facility]/ZIP Code Phon e Number [address] POCT Glucose (07/12/2017 8:22 PM EST) athologist Signature POC Glucose 119 65 - 199 [place] mg/dL [facility] Comment: Supplemental [...] Address City/State/ZIP Code Phon e Number [address] POCT Glucose (07/12/2017 4:02 PM EST) athologist Signature POC Glucose 114 65 - 199 [place] mg/dL [facility] Comment: Supplemental [...] Address City/State/ZIP Code Phon e Number [address] POCT Glucose (07/12/2017 11:28 AM EST) athologist Signature POC Glucose 164 65 - 199 [place] mg/dL [facility] Comment: Supplemental [...] Address City/State/ZIP Code Phon e Number [address] POCT Glucose (07/12/2017 7:34 AM EST) athologist Signature POC Glucose 109 65 - 199 [facility] mg/dL [facility] [...] Address City/State/ZIP [place] [address] (ABNORMAL) Basic Metabolic Panel (non-fasting) (07/12/2017 4:11 AM EST) P athologist Signature Glucose Lvl 92 65 - 199 [facility] mg/dL [facility] Comment: Diabetes: >=200 mg/dL plus symp toms BUN 31 (H) 10 - 20 mg/dL [facility] Creatinine 1.23 0.80 - 1.50 mg/dL [facility] Sodium 145 135 - 145 mmol/L [facility] Potassium Not Perf 3.5 - 5.0 mmol/L [facility] Comment: Duplicate order Please note: [...] mg/dL [facility] Estimated GFR 58 (L) >=60 [facility] Comment: The reported eGFR should be multiplied b y 1.2 for patients. The MDRD is not an appropriate measure o f renal function for patients with body mass extremes or in patients with acute kidney failure. http://[employer]DHnkdep http://[employer]DHnkf Specimen Anatomical Collection Method Collection Time Receive d Time (Source) Location / / Volume Laterality Blood specimen 07/12/2017 4:11 AM 017 8:57 (specimen) EST AM EST Resulting Agency Comment Spec In Lab Makayla Wilson APRN CHEMISTRY ORDERABLES Performing Organization Address City/State/[place] [address] (ABNORMAL) Prothrombin Time (07/12/2017 [...] [place] STACIE HEMATOLOGY ORDERABLES Performing Organization Address City/[facility]/[place] [address] Potassium (07/12/2017 4:11 AM EST) athologist Signature Potassium 3.8 3.5 - 5.0 [facility] mmol/L [facility] Comment: Please note: ??Patients with [...] Agency Comment Spec In Lab Makayla Katie JOINT CUTTER MACHINE CHEMISTRY ORDERABLES Performing Organization Address City/[facility]/[place] [address] POCT Glucose (07/12/2017 4:10 AM EST) athologist Signature POC Glucose 90 65 - 199 [facility] mg/dL [facility] [...] Address City/State/ZIP Code Phon e Number [address] POCT Glucose (07/11/2017 11:57 PM EST) athologist Signature POC Glucose 98 65 - 199 [facility] Comment: Supplemental ranges: <140 mg/dL before meals <180 mg/dL all other times of the day Specimen Anatomical Collection Method Collection Time Receive d Time (Source) Location / / Volume Laterality Blood specimen 07/11/2017 11:57 7 (specimen) PM EST 11:57 PM EST Yuan Webber MD POINT OF CARE TEST ORDERABLE S Performing Organization Address City/State/[place] [address] POCT Glucose (07/11/2017 8:32 PM EST) athologist Signature POC Glucose 146 65 - 199 [facility] Comment: Supplemental ranges: <140 mg/dL before meals <180 mg/dL all other times of the day Specimen Anatomical Collection Method Collection Time Receive d Time (Source) Location / / Volume Laterality Blood specimen 07/11/2017 8:32 PM 017 8:32 (specimen) EST PM EST Yuan Webber MD POINT OF CARE TEST ORDERABLE S Performing Organization Address City/State/[place] [address] XR Chest PA & [...] e xtubated, left chest tube removed, and Lisbon-Suzi catheter removed since the study. Atelectasis at [...] e xtubated, left chest tube removed, and Lisbon-Suzi catheter removed since the study. Atelectasis at [...] (H) 65 - 199 [facility] mg/dL [facility] Comment: Supplemental ranges: <140 mg/dL before meals <180 mg/dL all other times of the day Specimen Anatomical Collection Method Collection Time Receive d Time (Source) Location / / Volume Laterality Blood specimen 07/11/2017 4:05 PM 017 4:05 (specimen) EST PM EST Yuan Webber MD POINT OF CARE TEST ORDERABLE S Performing Organization Address City/State/ZIP Code Phon e Number [address] POCT Glucose (07/11/2017 11:55 AM EST) P athologist Signature POC Glucose 176 65 - 199 [place] mg/dL [facility] Comment: Supplemental ranges: <140 mg/dL before meals <180 mg/dL all other times of the day Specimen Anatomical Collection Method Collection Time Receive d Time (Source) Location / / Volume Laterality Blood specimen 07/11/2017 11:55 7 (specimen) AM EST 11:55 AM EST Yuan Webber MD POINT OF CARE TEST ORDERABLE S Performing Organization Address City/[facility]/[place] [address] POCT Glucose (07/11/2017 7:53 AM EST) athologist Signature POC Glucose 189 65 - 199 [place] mg/dL [facility] Comment: Supplemental ranges: <140 mg/dL before meals <180 mg/dL all other times of the day Specimen Anatomical Collection Method Collection Time Receive d Time (Source) Location / / Volume Laterality Blood specimen 07/11/2017 7:53 AM 017 7:53 (specimen) EST AM EST Yuan Webber MD POINT OF CARE TEST ORDERABLE S Performing Organization Address City/[facility]/[place] [address] POCT Glucose (07/11/2017 4:22 AM EST) P athologist Signature POC Glucose 151 65 - 199 [place] mg/dL [facility] Comment: Supplemental ranges: <140 mg/dL before meals <180 mg/dL all other times of the day Specimen Anatomical Collection Method Collection Time Receive d Time (Source) Location / / Volume Laterality Blood specimen 07/11/2017 4:22 AM 017 4:22 (specimen) EST AM EST Yuan Webber MD POINT OF CARE TEST ORDERABLE S Performing Organization Address City/[facility]/[place] [address] Potassium (07/11/2017 2:20 AM EST) athologist Signature Potassium 4.5 3.5 - 5.0 [facility] mmol/L [facility] Comment: Please note: ??Patients with [...] Webber MD CHEMISTRY ORDERABLES Performing Organization Address City/[facility]/[place] [address] POCT Glucose (07/11/2017 12:17 AM EST) athologist Signature POC Glucose 162 65 - 199 [facility] Comment: Supplemental ranges: <140 mg/dL before meals <180 mg/dL all other times of the day Specimen Anatomical Collection Method Collection Time Receive d Time (Source) Location / / Volume Laterality Blood specimen 07/11/2017 12:17 7 (specimen) AM EST 12:17 AM EST Yuan Webber MD POINT OF CARE TEST ORDERABLE S Performing Organization Address City/[facility]/ZIP Code Phon e Number [address] POCT Glucose (07/10/2017 8:47 PM EST) athologist Signature POC Glucose 191 65 - 199 [facility] Comment: Supplemental ranges: <140 mg/dL before meals <180 mg/dL all other times of the day Specimen Anatomical Collection Method Collection Time Receive d Time (Source) Location / / Volume Laterality Blood specimen 07/10/2017 8:47 PM 017 8:47 (specimen) EST PM EST Yuan Webber MD POINT OF CARE TEST ORDERABLE S Performing Organization Address City/State/ZIP Code Phon e Number [address] POCT Glucose (07/10/2017 4:06 PM EST) athologist Signature POC Glucose 131 65 - 199 [place] mg/dL [facility] Comment: Supplemental [...] Address City/State/[place] [address] POCT Glucose (07/10/2017 3:08 PM EST) athologist Signature POC Glucose 151 65 - 199 [place] mg/dL [facility] Comment: Supplemental [...] Address City/State/[place] [address] POCT Glucose (07/10/2017 2:25 PM EST) athologist Signature POC Glucose 146 65 - 199 [facility] Comment: Supplemental ranges: <140 mg/dL before meals <180 mg/dL all other times of the day Specimen Anatomical Collection Method Collection Time Receive d Time (Source) Location / / Volume Laterality Blood specimen 07/10/2017 2:25 PM 017 2:25 (specimen) EST PM EST Yuan Webber MD POINT OF CARE TEST ORDERABLE S Performing Organization Address City/State/ZIP Code Phon e Number [address] POCT Glucose (07/10/2017 1:23 PM EST) P athologist Signature POC Glucose 166 65 - 199 [place] mg/dL [facility] Comment: Supplemental ranges: <140 mg/dL before meals <180 mg/dL all other times of the day Specimen Anatomical Collection Method Collection Time Receive d Time (Source) Location / / Volume Laterality Blood specimen 07/10/2017 1:23 PM 017 1:23 (specimen) EST PM EST Yuan Webber MD POINT OF CARE TEST ORDERABLE S Performing Organization Address City/[facility]/ZIP Code Phon e Number [address] POCT Glucose (07/10/2017 11:52 AM EST) P athologist Signature POC Glucose 157 65 - 199 [place] mg/dL [facility] Comment: Supplemental [...] Address City/State/ZIP Code Phon e Number [address] POCT Glucose (07/10/2017 11:01 AM EST) P athologist Signature POC Glucose 158 65 - 199 [place] mg/dL [facility] Comment: Supplemental [...] Address City/State/ZIP Code Phon e Number [address] POCT Glucose (07/10/2017 9:54 AM EST) P athologist Signature POC Glucose 160 65 - 199 [place] mg/dL [facility] Comment: Supplemental [...] Address City/State/ZIP Code Phon e Number [address] POCT Glucose (07/10/2017 8:58 AM EST) athologist Signature POC Glucose 183 65 - 199 [place] mg/dL [facility] Comment: Supplemental [...] Address City/State/[place] [address] POCT Glucose (07/10/2017 8:01 AM EST) P athologist Signature POC Glucose 173 65 - 199 [facility] mg/dL [facility] [...] Address City/State/ZIP Code Phon e Number [address] POCT Glucose (07/10/2017 7:05 AM EST) athologist Signature POC Glucose 166 65 - 199 [place] mg/dL [facility] Comment: Supplemental [...] Address City/State/ZIP Code Phon e Number [address] POCT Glucose (07/10/2017 6:00 AM EST) athologist Signature POC Glucose 162 65 - 199 [facility] Comment: Supplemental ranges: <140 mg/dL before meals <180 mg/dL all other times of the day Specimen Anatomical Collection Method Collection Time Receive d Time (Source) Location / / Volume Laterality Blood specimen 07/10/2017 6:00 AM 017 6:00 (specimen) EST AM EST Yuan Webber MD POINT OF CARE TEST ORDERABLE S Performing Organization Address City/State/ZIP Code Phon e Number [address] (ABNORMAL) Differential, Automated (07/10/2017 4:28 AM EST) [facility] gist Method Time Signature Neutrophils % 87.9 % [facility] Neutr Abs (ANC) 10.70 (H) 1.70 - [facility] 6.10 [facility] x10(3)/[facility] L LABORATORY Lymphocytes % 3.9 % [facility] Lymphocytes Abs 0.5 (L) 0.9 - 3.2 [facility] x10(3)/[facility] LABORATORY Monocytes % 7.0 % [facility] Monocyte Abs 0.8 0.3 - 0.9 [facility] x10(3)/[facility] LABORATORY Eosinophils % 0.3 % [facility] Eosinophils Abs 0.0 0.0 - 0.4 [facility] x10(3)/[facility] LABORATORY Basophils % 0.2 % [facility] Basophils Abs 0.0 0.0 - 0.1 [facility] x10(3)/[facility] LABORATORY Immature Gran % 0.70 [...] Gran Abs 0.08 (H) 0.00 - 0.04 x10(3)/[facility] LABORATORY Specimen Anatomical Collection Method Collection Time Receive d Time (Source) Location / / Volume Laterality Blood specimen 07/10/2017 4:28 AM 017 4:36 (specimen) EST AM EST Resulting Agency Comment Spec In Lab Yuan Webber MD HEMATOLOGY ORDERABLES Performing Organization Address City/State/ZIP [place] [address] (ABNORMAL) Hemogram (07/10/2017 4:28 AM EST) Analysis Performed At Patho logist Time Signature WBC 12.2 (H) 4.0 - 9.5 [facility] x10(3)/[facility] LABORATORY RBC 3.31 (L) 4.58 - [facility] 5.54 [facility] x10(6)/[facility] LABORATORY Hemoglobin 9.8 (L) 13.7 - [facility] 16.5 gm/dL [facility] Hematocrit 30.0 (L) 40.5 - [facility] 48.5 % [facility] MCV 90.6 82.9 - [facility]1 fL [facility] MCH 29.6 27.5 - [facility] 32.1 pg [facility] MCHC 32.7 32.0 - [facility] 35.7 gm/dL [facility] Platelets 135 (L) 145 - 357 [facility] x10(3)/[facility] LABORATORY RDWSD 50.8 (H) 36.0 - [facility] 45.0 [facility] LABORATORY RDWCV 15.4 (H) 11.4 - [facility] 13.8 % [facility] MPV 10.0 7.6 - 12.9 [facility] LABORATORY nRBC % Auto 0.0 % [facility] nRBC Abs Auto 0.000 0.000 - [facility] 0.000 [facility] x10(3)/[facility] LABORATORY Specimen Anatomical Collection Method Collection Time Receive d Time (Source) Location / / Volume Laterality Blood specimen 07/10/2017 4:28 AM 017 4:36 (specimen) EST AM EST Resulting Agency Comment Spec In Lab Yuan Webber MD HEMATOLOGY ORDERABLES Performing Organization Address City/State/ZIP [place] [address] (ABNORMAL) Basic Metabolic Panel (non-fasting) (07/10/2017 4:28 AM EST) athologist Signature Glucose Lvl 178 65 - 199 [facility] mg/dL [facility] Comment: Diabetes: >=200 mg/dL plus symp toms BUN 20 10 - 20 mg/dL [facility] Creatinine 1.19 0.80 - 1.50 [...] - 15 mmol/L [facility] Calcium 7.4 (L) 8.5 - 10.5 mg/dL [facility] Estimated GFR 60 >=60 [facility] Comment: The reported eGFR should be multiplied b y 1.2 for patients. The MDRD is not an appropriate measure o f renal function for patients with body mass extremes or in patients with acute kidney failure. http://[employer]/DHnkdep http://[employer]/DHMCnkf Specimen Anatomical Collection Method Collection Time Receive d Time (Source) Location / / Volume Laterality Blood specimen 07/10/2017 4:28 AM 017 4:36 (specimen) EST AM EST Resulting Agency Comment Spec In Lab Yuan Webber MD CHEMISTRY ORDERABLES Performing Organization Address City/[facility]/ZIP Code Phon e Number [address] POCT Glucose (07/10/2017 4:26 AM EST) P athologist Signature POC Glucose 176 65 - 199 [facility] Comment: Supplemental ranges: <140 mg/dL before meals <180 mg/dL all other times of the day Specimen Anatomical Collection Method Collection Time Receive d Time (Source) Location / / Volume Laterality Blood specimen 07/10/2017 4:26 AM 017 4:26 (specimen) EST AM EST Yuan Webber MD POINT OF CARE TEST ORDERABLE S Performing Organization Address City/State/[place] [address] (ABNORMAL) POCT Glucose (07/10/2017 3:06 AM EST) P athologist Signature POC Glucose 204 (H) 65 - 199 [facility] Comment: Supplemental ranges: <140 mg/dL before meals <180 mg/dL all other times of the day Specimen Anatomical Collection Method Collection Time Receive d Time (Source) Location / / Volume Laterality Blood specimen 07/10/2017 3:06 AM 12/16/2 017 3:06 (specimen) EST AM EST Yuan Webber MD POINT OF CARE TEST ORDERABLE S Performing Organization Address City/[facility]/ZIP Code Phon e Number [address] (ABNORMAL) POCT Glucose (07/10/2017 2:10 AM EST) P athologist Signature POC Glucose 203 (H) 65 - 199 [place] mg/dL [facility] Comment: Supplemental ranges: <140 mg/dL before meals <180 mg/dL all other times of the day Specimen Anatomical Collection Method Collection Time Receive d Time (Source) Location / / Volume Laterality Blood specimen 07/10/2017 2:10 AM 017 2:10 (specimen) EST AM EST Yuan Webber MD POINT OF CARE TEST ORDERABLE S Performing Organization Address City/[facility]/[place] [address] POCT Glucose (07/10/2017 1:09 AM EST) P athologist Signature POC Glucose 196 65 - 199 [place] mg/dL [facility] Comment: Supplemental [...] Address City/State/[place] [address] POCT Glucose (07/10/2017 12:10 AM EST) P athologist Signature POC Glucose 173 65 - 199 [place] mg/dL [facility] Comment: Supplemental [...] Address City/State/ZIP Code Phon e Number [address] POCT Glucose (07/09/2017 11:01 PM EST) P athologist Signature POC Glucose 140 65 - 199 [place] mg/dL [facility] Comment: Supplemental ranges: <140 mg/dL before meals <180 mg/dL all other times of the day Specimen Anatomical Collection Method Collection Time Receive d Time (Source) Location / / Volume Laterality Blood specimen 07/09/2017 11:01 7 (specimen) PM EST 11:01 PM EST Yuan Webber MD POINT OF CARE TEST ORDERABLE S Performing Organization Address City/[facility]/ZIP Code Phon e Number [address] POCT Glucose (07/09/2017 10:05 PM EST) athologist Signature POC Glucose 144 65 - 199 [place] mg/dL [facility] Comment: Supplemental [...] Address City/State/ZIP Code Phon e Number [address] POCT Glucose (07/09/2017 9:31 PM EST) P athologist Signature POC Glucose 121 65 - 199 [place] mg/dL [facility] Comment: Supplemental [...] Address City/State/ZIP Code Phon e Number [address] POCT Glucose (07/09/2017 9:03 PM EST) athologist Signature POC Glucose 98 65 - 199 [place] mg/dL [facility] Comment: Supplemental [...] Address City/State/ZIP Code Phon e Number [address] POCT Glucose (07/09/2017 8:09 PM EST) athologist Signature POC Glucose 117 65 - 199 [place] mg/dL [facility] Comment: Supplemental [...] Address City/State/ZIP Code Phon e Number [address] POCT Glucose (07/09/2017 5:40 PM EST) athologist Signature POC Glucose 155 65 - 199 [facility] mg/dL [facility] Comment: Supplemental ranges: <140 mg/dL before meals <180 mg/dL all other times of the day Specimen Anatomical Collection Method Collection Time Receive d Time (Source) Location / / Volume Laterality Blood specimen 07/09/2017 5:40 PM 017 5:40 (specimen) EST PM EST Yuan Webber MD POINT OF CARE TEST ORDERABLE S Performing Organization Address City/[facility]/ZIP Code Phon e Number [address] POCT Glucose (07/09/2017 4:24 PM EST) athologist Signature POC Glucose 164 65 - 199 [place] mg/dL [facility] Comment: Supplemental ranges: <140 mg/dL before meals <180 mg/dL all other times of the day Specimen Anatomical Collection Method Collection Time Receive d Time (Source) Location / / Volume Laterality Blood specimen 07/09/2017 4:24 PM 017 4:24 (specimen) EST PM EST Yuan Webber MD POINT OF CARE TEST ORDERABLE S Performing Organization Address City/[facility]/ZIP Code Phon e Number [address] POCT Glucose (07/09/2017 3:19 PM EST) athologist Signature POC Glucose 166 65 - 199 [place] mg/dL [facility] Comment: Supplemental ranges: <140 mg/dL before meals <180 mg/dL all other times of the day Specimen Anatomical Collection Method Collection Time Receive d Time (Source) Location / / Volume Laterality Blood specimen 07/09/2017 3:19 PM 017 3:19 (specimen) EST PM EST Yuan Webber MD POINT OF CARE TEST ORDERABLE S Performing Organization Address City/[facility]/ZIP Code Phon [place] [address] POCT Glucose (07/09/2017 2:26 PM EST) athologist Signature POC Glucose 179 65 - 199 [place] mg/dL [facility] Comment: Supplemental [...] Address City/State/[place] [address] (ABNORMAL) POCT Glucose (07/09/2017 1:29 PM EST) P athologist Signature POC Glucose 210 (H) 65 - 199 [place] mg/dL [facility] Comment: Supplemental [...] Address City/State/[place] [address] POCT Glucose (07/09/2017 12:20 PM EST) athologist Signature POC Glucose 172 65 - 199 [place] mg/dL [facility] Comment: Supplemental ranges: <140 mg/dL before meals <180 mg/dL all other times of the day Specimen Anatomical Collection Method Collection Time Receive d Time (Source) Location / / Volume Laterality Blood specimen 07/09/2017 12:20 7 (specimen) PM EST 12:20 PM EST Yuan Webber MD POINT OF CARE TEST ORDERABLE S Performing Organization Address City/State/ZIP [place] [address] POCT Glucose (07/09/2017 11:24 AM EST) athologist Signature POC Glucose 156 65 - 199 [place] mg/dL [facility] Comment: Supplemental [...] Address City/State/ZIP Code Phon [place] [address] POCT Glucose (07/09/2017 11:11 AM EST) athologist Signature POC Glucose 172 65 - 199 [place] mg/dL [facility] Comment: Supplemental [...] Address City/State/ZIP Code Phon e Number [address] POCT Glucose (07/09/2017 10:08 AM EST) athologist Signature POC Glucose 176 65 - 199 [facility] mg/dL [facility] [...] Address City/State/[place] [address] POCT Glucose (07/09/2017 8:02 AM EST) athologist Signature POC Glucose 178 65 - 199 [place] mg/dL [facility] Comment: Supplemental [...] Address City/State/[place] [address] (ABNORMAL) BLOOD GAS 2 ARTERIAL (07/09/2017 5:37 AM EST) Analysis Performed At Patho logist Time Signature pH Art 7.36 7.35 - [facility] 7.45 [facility] pCO2 Art 38 35 - 45 [facility] mmHg [facility] pO2 Art 79 (L) 85 - 104 [facility] LABORATORY HCO3 Art 20.9 20.0 - [facility] 26.0 [facility] mmol/L [facility] BE Art -4.6 (L) -3.0 - 3.0 [facility] mmol/L [facility] Hgb Blood Gas 10.5 (L) 13.7 - [facility] 16.5 gm/dL [facility] O2HB Art 93.8 (L) 94.0 - [facility] 97.0 % [facility] COHB Art 0.3 % [facility] Comment: Nonsmokers: 0.5-1.5% COHB Smokers: Variable, but usually less than 10% Toxic: 20-30% COHB Lethal: Greater than 60% COHB METHB Art 0.6 <=1.5 % [facility] Na Whole Blood 141 [...] Whole Bld 175 65 - 199 mg/dL [facility] Comment: Diabetes: >=200 mg/dL plus symp toms. Lactate WB 1.0 0.5 - 2.2 mmol/L [facility] FIO2 Art 40 % [facility] PF Ratio Art 198 [facility]ORY Specimen Anatomical Collection Method Collection Time Receive d Time (Source) Location / / Volume Laterality Blood specimen 07/09/2017 5:37 AM 017 5:37 (specimen) EST AM EST Yuan Webber MD CHEMISTRY ORDERABLES Performing Organization Address City/State/[place] [address] POCT Glucose (07/09/2017 3:27 AM EST) athologist Signature POC Glucose 192 65 - 199 [facility] Comment: Supplemental ranges: <140 mg/dL before meals <180 mg/dL all other times of the day Specimen Anatomical Collection Method Collection Time Receive d Time (Source) Location / / Volume Laterality Blood specimen 07/09/2017 3:27 AM 017 3:27 (specimen) EST AM EST Yuan Webber MD POINT OF CARE TEST ORDERABLE S Performing Organization Address City/State/[place] [address] (ABNORMAL) Basic Metabolic Panel (non-fasting) (07/09/2017 2:30 AM EST) athologist Signature Glucose Lvl 179 65 - 199 [facility] Comment: Diabetes: >=200 mg/dL plus symp toms BUN 17 10 - 20 mg/dL [facility] Creatinine 1.34 0.80 - 1.50 mg/dL [facility] Sodium 144 135 - 145 mmol/L [facility] Potassium Not Perf 3.5 - 5.0 mmol/L [facility] Comment: Duplicate order Please note: [...] - 15 mmol/L [facility] Calcium 7.1 (L) 8.5 - 10.5 mg/dL [facility] Comment: result rechecked-JLK Estimated GFR 53 (L) >=60 [facility] Comment: The reported eGFR should be multiplied b y 1.2 for patients. The MDRD is not an appropriate measure o f renal function for patients with body mass extremes or in patients with acute kidney failure. http://[employer]/DHnkdep http://[employer]/DHMCnkf Specimen Anatomical Collection Method Collection Time Receive d Time (Source) Location / / Volume Laterality Blood specimen Venous Draw / 07/09/2017 2:30 AM 2016 2:42 (specimen) Unknown EST AM EST Resulting Agency Comment Spec In Lab Yuan Webber MD CHEMISTRY ORDERABLES Performing Organization Address City/[facility] [place] [address] (ABNORMAL) Potassium (07/09/2017 2:30 AM EST) P athologist Signature Potassium 5.1 (H) 3.5 - 5.0 [facility] mmol/L [facility] Comment: Please note: ??Patients with [...] Webber MD CHEMISTRY ORDERABLES Performing Organization Address City/[facility] [place] [address] (ABNORMAL) Hemogram (07/09/2017 2:30 AM EST) Analysis Performed At Patho logist Time Signature WBC 12.5 (H) 4.0 - 9.5 [place] x10(3)/[facility] LABORATORY RBC 3.38 (L) 4.58 - [place] 5.54 [facility] x10(6)/[facility] LABORATORY Hemoglobin 10.1 (L) 13.7 - [place] 16.5 gm/dL [facility] Hematocrit 30.3 (L) 40.5 - [place] 48.5 % [facility] MCV 89.6 82.9 - [facility] 93.1 [facility] LABORATORY MCH 29.9 27.5 - [place] 32.1 pg [facility] MCHC 33.3 32.0 - [place] 35.7 gm/dL [facility] Platelets 127 (L) 145 - 357 [facility] x10(3)/[facility] LABORATORY RDWSD 49.3 (H) 36.0 - [facility] 45.0 [facility] LABORATORY RDWCV 15.2 (H) 11.4 - [place] 13.8 % [facility] MPV 9.9 7.6 - 12.9 [place] [facility] LABORATORY nRBC % Auto 0.0 % [facility] nRBC Abs Auto 0.000 0.000 - [place] 0.000 [facility] x10(3)/[facility] LABORATORY Specimen Anatomical Collection Method Collection Time Receive d Time (Source) Location / / Volume Laterality Blood specimen 07/09/2017 2:30 AM 017 2:41 (specimen) EST AM EST Resulting Agency Comment Spec In Lab Yuan Webber MD HEMATOLOGY ORDERABLES Performing Organization Address City/State/ZIP [place] [address] POCT Glucose (07/09/2017 2:10 AM EST) P athologist Signature POC Glucose 169 65 - 199 [facility] mg/dL [facility] Comment: Supplemental ranges: [...] Address City/State/[place] [address] POCT Glucose (07/09/2017 1:01 AM EST) P athologist Signature POC Glucose 173 65 - 199 [place] mg/dL [facility] Comment: Supplemental ranges: <140 mg/dL before meals <180 mg/dL all other times of the day Specimen Anatomical Collection Method Collection Time Receive d Time (Source) Location / / Volume Laterality Blood specimen 07/09/2017 1:01 AM 017 1:01 (specimen) EST AM EST Yuan Webber MD POINT OF CARE TEST ORDERABLE S Performing Organization Address City/[facility]/[place] [address] Blood culture (07/09/2017 12:40 AM EST) Patholo gist Method Time Signature Blood Culture No growth [place] at 5 days. [facility] Specimen Anatomical Collection Method Collection Time Receive d Time (Source) Location / / Volume Laterality Blood specimen STRUCTURE OF RIGHT 07/09/2017 12:40 3:58 (specimen) UPPER LIMB / AM EST AM EST Unknown Resulting Agency Comment Spec In Lab Yuan Webber MD MICROBIOLOGY - BLOOD ORDERAB LES Performing Organization Address City/[facility]/[place] [address] Blood culture (07/09/2017 12:30 AM EST) Patholo gist Method Time Signature Blood Culture No growth [place] at 5 days. [facility] Specimen Anatomical Collection Method Collection Time Receive d Time (Source) Location / / Volume Laterality Blood specimen STRUCTURE OF LEFT 07/09/2017 12:30 06/25 3:59 (specimen) UPPER LIMB / AM EST AM EST Unknown Resulting Agency Comment Spec In Lab Yuan Webber MD MICROBIOLOGY - BLOOD ORDERAB LES Performing Organization Address City/[facility]/[place] [address] (ABNORMAL) Urinalysis Microscopic Exam (07/09/2017 12:05 AM EST) Analysis Performed At Patho logist Time Signature RBC UA 32 (H) 0 - 3 /HPF [facility] WBC UA 5 (H) 0 - 3 /HPF [facility] Squam Epith UA <1 <=4 /HPF [facility] Hyaline Cast 17 (H) 0 - 2 /LPF [facility] Gran Cast UA 1 (H) <=0 /LPF [facility] Uric Ac Bianca Rare (A) None /HPF [facility] Specimen (Source) Anatomical Collection Method Collection Time Re ceived Time Location / / Volume Laterality Urine specimen 07/09/2017 12:05 7 obtained via AM EST 12:39 AM EST indwelling urinary catheter (specimen) Resulting Agency Comment Spec In Lab Yuan Webber MD URINE ORDERABLES Performing Organization Address City/State/[place] [address] (ABNORMAL) Urinalysis with reflex Culture (07/09/2017 12:05 AM EST) Patholo gist Method Time Signature Glucose UA Negative Negative [facility] mg/dL [facility] Protein UA 30 (A) Negative [facility] mg/dL [facility] Bilirubin UA Negative Negative [facility] mg/dL [facility] Comment: Clinical correlation required for positi ve Urine Bilirubin results as false positive may occur with some drugs and d rug related products. If a false positive is suspected a serum total bili yeager should be considered if clinically indicated. Urobilinogen UA Normal Normal mg/dL [facility] pH UA 5.0 5.0 - 8.0 [facility] Blood UA Moderate (A) Negative mg/dL [facility] Ketones UA Negative Negative mg/dL [facility] Nitrite UA Negative Negative [facility] Leukocytes UA Negative Negative [facility] LABORATORY Appearance UA Hazy (A) Clear [place] [facility] Spec [place] UA 1.025 1.002 - 1.030 [facility] Color UA Yellow Yellow [facility] Culture Reflexed No [facility] Specimen (Source) Anatomical Collection Method Collection Time Re ceived Time Location / / Volume Laterality Urine specimen 07/09/2017 12:05 7 obtained via AM EST 12:39 AM EST indwelling urinary catheter (specimen) Resulting Agency Comment Spec In Lab Yuan Webber MD URINE ORDERABLES Performing Organization Address City/State/ZIP Code Phon e Number [address] POCT Glucose (07/08/2017 11:01 PM EST) athologist Signature POC Glucose 191 65 - 199 [facility] Comment: Supplemental ranges: <140 mg/dL before meals <180 mg/dL all other times of the day Specimen Anatomical Collection Method Collection Time Receive d Time (Source) Location / / Volume Laterality Blood specimen 07/08/2017 11:01 7 (specimen) PM EST 11:01 PM EST Yuan Webber MD POINT OF CARE TEST ORDERABLE S Performing Organization Address City/[facility]/ZIP Code Phon e Number [address] POCT Glucose (07/08/2017 10:04 PM EST) athologist Signature POC Glucose 198 65 - 199 [facility] Comment: Supplemental ranges: <140 mg/dL before meals <180 mg/dL all other times of the day Specimen Anatomical Collection Method Collection Time Receive d Time (Source) Location / / Volume Laterality Blood specimen 07/08/2017 10:04 7 (specimen) PM EST 10:04 PM EST Yuan Webber MD POINT OF CARE TEST ORDERABLE S Performing Organization Address City/State/[place] [address] Prepare Albumin 5% in 250 mL (07/08/2017 8:49 PM EST) athologist Signature Dispensed? Yes [facility] Specimen Anatomical Collection Method Collection Time Receive d Time (Source) Location / / Volume Laterality Blood specimen No Charge / 07/08/2017 8:49 PM 017 8:51 (specimen) Unknown EST PM EST Resulting Agency Comment Spec In Lab [facility] ORDERABLES Performing Organization Address City/State/ZIP Code Phon e Number [address] POCT Glucose (07/08/2017 8:28 PM EST) athologist Signature POC Glucose 195 65 - 199 [facility] Comment: Supplemental ranges: <140 mg/dL before meals <180 mg/dL all other times of the day Specimen Anatomical Collection Method Collection Time Receive d Time (Source) Location / / Volume Laterality Blood specimen 07/08/2017 8:28 PM 017 8:28 (specimen) EST PM EST Yuan Webber MD POINT OF CARE TEST ORDERABLE S Performing Organization Address City/State/ZIP Code Phon e Number [address] (ABNORMAL) POCT Glucose (07/08/2017 7:13 PM EST) athologist Signature POC Glucose 220 (H) 65 - 199 [facility] Comment: Supplemental ranges: <140 mg/dL before meals <180 mg/dL all other times of the day Specimen Anatomical Collection Method Collection Time Receive d Time (Source) Location / / Volume Laterality Blood specimen 07/08/2017 7:13 PM 017 7:13 (specimen) EST PM EST Yuan Webber MD POINT OF CARE TEST ORDERABLE S Performing Organization Address City/State/ZIP Code Phon e Number [address] POCT Glucose (07/08/2017 5:04 PM EST) P athologist Signature POC Glucose 147 65 - 199 [facility] mg/dL [facility] Comment: Supplemental ranges: <140 mg/dL before meals <180 mg/dL all other times of the day Specimen Anatomical Collection Method Collection Time Receive d Time (Source) Location / / Volume Laterality Blood specimen 07/08/2017 5:04 PM 017 5:04 (specimen) EST PM EST Yuan Webber MD POINT OF CARE TEST ORDERABLE S Performing Organization Address City/State/ZIP [place] [address] (ABNORMAL) BLOOD GAS 2 ARTERIAL (07/08/2017 4:13 PM EST) Analysis Performed At Patho logist Time Signature pH Art 7.38 7.35 - [facility] 7.45 [facility] pCO2 Art 36 35 - 45 [facility] mmHg [facility] pO2 Art 91 85 - 104 [facility] LABORATORY HCO3 Art 20.9 20.0 - [facility] 26.0 [facility] mmol/L [facility] BE Art -4.2 (L) -3.0 - 3.0 [facility] mmol/L [facility] Hgb Blood Gas 11.7 (L) 13.7 - [facility] 16.5 gm/dL [facility] O2HB Art 95.1 94.0 - [facility] 97.0 % [facility] COHB Art 0.6 % [facility] Comment: Nonsmokers: 0.5-1.5% COHB Smokers: Variable, but usually less than 10% Toxic: 20-30% COHB Lethal: Greater than 60% COHB METHB Art 0.6 <=1.5 % [facility] Na Whole Blood 139 [...] Whole Bld 155 65 - 199 mg/dL [facility] Comment: Diabetes: >=200 mg/dL plus symp toms. Lactate WB 1.4 0.5 - 2.2 mmol/L [facility] FIO2 Art 40 % [facility] PF Ratio Art 228 [facility] Specimen Anatomical Collection Method Collection Time Receive d Time (Source) Location / / Volume Laterality Blood specimen 07/08/2017 4:13 PM 017 4:13 (specimen) EST PM EST Yuan Webber MD CHEMISTRY ORDERABLES Performing Organization Address City/[facility]/ZIP [facility] Phon e Number [address] POCT Glucose (07/08/2017 4:01 PM EST) athologist Signature POC Glucose 148 65 - 199 [facility] mg[facility]dL [facility] Comment: Supplemental ranges: <140 mg/dL before meals <180 mg/dL all other times of the day Specimen Anatomical Collection Method Collection Time Receive d Time (Source) Location / / Volume Laterality Blood specimen 07/08/2017 4:01 PM 017 4:01 (specimen) EST PM EST Yuan Webber MD POINT OF CARE TEST ORDERABLE S Performing Organization Address City/[facility]/[place] [address] POCT Glucose (07/08/2017 3:21 PM EST) P athologist Signature POC Glucose 118 65 - 199 [facility] mg/dL [facility] Comment: Supplemental ranges: <140 mg/dL before meals <180 mg/dL all other times of the day Specimen Anatomical Collection Method Collection Time Receive d Time (Source) Location / / Volume Laterality Blood specimen 07/08/2017 3:21 PM 017 3:21 (specimen) EST PM EST Yuan Webber MD POINT OF CARE TEST ORDERABLE S Performing Organization Address City/State/ZIP Code Phon e Number [address] POCT Glucose (07/08/2017 2:01 PM EST) P athologist Signature POC Glucose 129 65 - 199 [place] mg/dL [facility] Comment: Supplemental ranges: <140 mg/dL before meals <180 mg/dL all other times of the day Specimen Anatomical Collection Method Collection Time Receive d Time (Source) Location / / Volume Laterality Blood specimen 07/08/2017 2:01 PM 017 2:01 (specimen) EST PM EST Yuan Webber MD POINT OF CARE TEST ORDERABLE S Performing Organization Address City/[facility]/ZIP Code Phon e Number [address] POCT Glucose (07/08/2017 11:53 AM EST) athologist Signature POC Glucose 156 65 - 199 [place] mg/dL [facility] Comment: Supplemental [...] Address City/State/ZIP Code Phon e Number [address] POCT Glucose (07/08/2017 11:04 AM EST) athologist Signature POC Glucose 181 65 - 199 [place] mg/dL [facility] Comment: Supplemental [...] Address City/State/[place] [address] (ABNORMAL) POCT Glucose (07/08/2017 9:24 AM EST) athologist Signature POC Glucose 203 (H) 65 - 199 [facility] mg/dL [facility] Comment: Supplemental ranges: <140 mg/dL before meals <180 mg/dL all other times of the day Specimen Anatomical Collection Method Collection Time Receive d Time (Source) Location / / Volume Laterality Blood specimen 07/08/2017 9:24 AM 017 9:24 (specimen) EST AM EST Yuan Webber MD POINT OF CARE TEST ORDERABLE S Performing Organization Address City/[facility]/[place] [address] APTT (07/08/2017 8:40 AM EST) athologist Signature PTT 33 25 - 35 sec [facility] LABORATORY Comment: The recommended therapeutic range for fu ll dose, unfractionated heparin at [facility] is 80 ? 114 seconds. [...] Webber MD HEMATOLOGY ORDERABLES Performing Organization Address City/[facility]/[place] [address] (ABNORMAL) Prothrombin Time (07/08/2017 8:40 AM EST) athologist Signature PT 15.6 (H) 11.8 - 14.0 [facility] [...] Address City/State/[place] [address] (ABNORMAL) POCT Glucose (07/08/2017 7:38 AM EST) P athologist Signature POC Glucose 232 (H) 65 - 199 [facility] mg/dL [facility] Comment: Supplemental ranges: <140 mg/dL before meals <180 mg/dL all other times of the day Specimen Anatomical Collection Method Collection Time Receive d Time (Source) Location / / Volume Laterality Blood specimen 07/08/2017 7:38 AM 017 7:38 (specimen) EST AM EST Yuan Webber MD POINT OF CARE TEST ORDERABLE S Performing Organization Address City/[facility]/[place] [address] (ABNORMAL) POCT Glucose (07/08/2017 7:07 AM EST) athologist Signature POC Glucose 234 (H) 65 - 199 [facility] mg/dL [facility] Comment: Supplemental ranges: <140 mg/dL before meals <180 mg/dL all other times of the day Specimen Anatomical Collection Method Collection Time Receive d Time (Source) Location / / Volume Laterality Blood specimen 07/08/2017 7:07 AM 017 7:07 (specimen) EST AM EST Yuan Webber MD POINT OF CARE TEST ORDERABLE S Performing Organization Address City/[facility]/[place] [address] (ABNORMAL) POCT Glucose (07/08/2017 6:04 AM EST) athologist Signature POC Glucose 225 (H) 65 - 199 [facility] mg/dL [facility] Comment: Supplemental ranges: <140 mg/dL before meals <180 mg/dL all other times of the day Specimen Anatomical Collection Method Collection Time Receive d Time (Source) Location / / Volume Laterality Blood specimen 07/08/2017 6:04 AM 017 6:04 (specimen) EST AM EST Yuan Webber MD POINT OF CARE TEST ORDERABLE S Performing Organization Address City/State/[place] [address] (ABNORMAL) POCT Glucose (07/08/2017 5:31 AM EST) athologist Signature POC Glucose 216 (H) 65 - 199 [facility] mg/dL [facility] Comment: Supplemental ranges: <140 mg/dL before meals <180 mg/dL all other times of the day Specimen Anatomical Collection Method Collection Time Receive d Time (Source) Location / / Volume Laterality Blood specimen 07/08/2017 5:31 AM 017 5:31 (specimen) EST AM EST Yuan Webber MD POINT OF CARE TEST ORDERABLE S Performing Organization Address City/State/[place] [address] (ABNORMAL) POCT Glucose (07/08/2017 4:52 AM EST) athologist Signature POC Glucose 257 (H) 65 - 199 [facility] mg/dL [facility] Comment: Supplemental ranges: <140 mg/dL before meals <180 mg/dL all other times of the day Specimen Anatomical Collection Method Collection Time Receive d Time (Source) Location / / Volume Laterality Blood specimen 07/08/2017 4:52 AM 017 4:52 (specimen) EST AM EST Daphne Shahid MD POINT OF CARE TEST ORDERABLE S Performing Organization Address City/State/[place] [address] (ABNORMAL) BLOOD GAS 2 ARTERIAL (07/08/2017 4:04 AM EST) Analysis Performed At Patho logist Time Signature pH Art 7.30 (L) 7.35 - [facility] 7.45 [facility] pCO2 Art 41 35 - 45 [facility] mmHg [facility] pO2 Art 83 (L) 85 - 104 [facility] LABORATORY HCO3 Art 19.6 (L) 20.0 - [facility] 26.0 [facility] mmol/L [facility] LABORATORY BE Art -6.8 (L) -3.0 - 3.0 [facility] mmol/L [facility] Hgb Blood Gas 12.2 (L) 13.7 - [facility] 16.5 gm/dL [facility] O2HB Art 93.5 (L) 94.0 - [facility] 97.0 % [facility] COHB Art 0.4 % [facility] Comment: Nonsmokers: 0.5-1.5% COHB Smokers: Variable, but usually less than 10% Toxic: 20-30% COHB Lethal: Greater than 60% COHB METHB Art 0.8 <=1.5 % [facility]OR[facility] Na Whole Blood 138 [...] Bld 274 (H) 65 - 199 mg/dL [facility] Comment: Diabetes: >=200 mg/dL plus symp toms. Lactate WB 4.4 (Critical) 0.5 - 2.2 mmol/L [facility] LAB[facility] Comment: Noted by slice cutting machine operator. FIO2 Art 40 % [facility]OR[facility] PF Ratio Art 208 [facility] LABORATORY Specimen Anatomical Collection Method Collection Time Receive d Time (Source) Location / / Volume Laterality Blood specimen 07/08/2017 4:04 AM 017 4:04 (specimen) EST AM EST Daphne Shahid MD CHEMISTRY ORDERABLES Performing Organization Address City/State/ZIP Code Phon e Number [address] Scan, Peripheral Blood (07/08/2017 [...] Webber MD HEMATOLOGY ORDERABLES Performing Organization Address City/[facility]/ZIP Code Phon e Number [address] (ABNORMAL) Differential, Automated (07/08/2017 4:00 AM EST) Patholo gist Method Time Signature Neutrophils % 85.4 % [facility] Neutr Abs (ANC) 16.07 (H) 1.70 - [facility] 6.10 [facility] x10(3)/[facility] L LABORATORY Lymphocytes % 3.5 % [facility] LABORATORY Lymphocytes Abs 0.6 (L) 0.9 - 3.2 [facility] x10(3)/[facility] LABORATORY Monocytes % 10.4 % [facility] LABORATORY Monocyte Abs 2.0 (H) 0.3 - 0.9 [facility] x10(3)/[facility] LABORATORY Eosinophils % 0.0 % [facility]ORY Eosinophils Abs 0.0 0.0 - 0.4 [facility] x10(3)/[facility] LABORATORY Basophils % 0.1 % [facility]OR[facility]ORY Basophils Abs 0.0 0.0 - 0.1 [facility] x10(3)/[facility] LABORATORY Immature Gran [...] Gran Abs 0.12 (H) 0.00 - 0.04 x10(3)/[facility] LABORATORY Specimen Anatomical Collection Method Collection Time Receive d Time (Source) Location / / Volume Laterality Blood specimen 07/08/2017 4:00 AM 017 4:09 (specimen) EST AM EST Resulting Agency Comment Spec In Lab Yuan Webber MD HEMATOLOGY ORDERABLES Performing Organization Address City/State/ZIP Code Phon e Number [place] [id number] Drive (ABNORMAL) Hemogram (07/08/2017 4:00 AM EST) Analysis Performed At Patho logist Time Signature WBC 18.8 (H) 4.0 - 9.5 [facility] x10(3)/[facility] LABORATORY RBC 4.00 (L) 4.58 - [facility] [employer] 5.54 [facility] x10(6)/[facility] LABORATORY Hemoglobin 11.9 (L) 13.7 - [facility] 16.5 gm/dL [facility] Hematocrit 35.9 (L) 40.5 - [facility] SU 48.5 % [facility] MCV 89.8 82.9 - [facility] SU 93.1 [facility] LABORATORY MCH 29.8 27.5 - [place] SU 32.1 pg [facility] MCHC 33.1 32.0 - [facility] 35.7 gm/dL [facility] Platelets 232 145 - 357 [facility] x10(3)/[facility] LABORATORY RDWSD 47.6 (H) 36.0 - [facility] SU 45.0 [facility] RDWCV 14.5 (H) 11.4 - [facility] SU 13.8 % [facility] MPV 9.5 7.6 - 12.9 [facility] LABORATORY nRBC % Auto 0.0 % [facility] LABORATORY nRBC Abs Auto 0.000 0.000 - [facility] 0.000 [facility] x10(3)/[facility] LABORATORY Specimen Anatomical Collection Method Collection Time Receive d Time (Source) Location / / Volume Laterality Blood specimen 07/08/2017 4:00 AM 017 4:09 (specimen) EST AM EST Resulting Agency Comment Spec In Lab Yuan Webber MD HEMATOLOGY ORDERABLES Performing Organization Address City/[facility]/[place] [address] (ABNORMAL) Electrolytes panel (07/08/2017 4:00 AM EST) athologist Signature Sodium 139 135 - 145 [facility] mmol/L [facility] Potassium 4.7 3.5 - 5.0 [facility] mmol/L [facility] Comment: result rechecked-K Please note: [...] 5 - 15 mmol/L [facility]OR[facility]ORY Specimen Anatomical Collection Method Collection Time Receive d Time (Source) Location / / Volume Laterality Blood specimen 07/08/2017 4:00 AM 017 4:10 (specimen) EST AM EST Resulting Agency Comment Spec In Lab Yuan Webber MD CHEMISTRY ORDERABLES Performing Organization Address City/[facility]/[place] [address] (ABNORMAL) Cardiac Enzymes (LEB/CGP) (07/08/2017 4:00 AM EST) P athologist Signature Troponin-T 1.88 (H) 0.00 - [facility] 0.00 ng/mL [facility] Comment: The 99th percentile for [...] additional sample may be indicated. Reference: [facility] Definition of Myocardial Infarction. Journal of the [place] [employer] 2012;60:1581-98 CK, Total 413 (H) 0 - 200 unit/L [facility] Comment: result rechecked-K Specimen Anatomical Collection Method Collection Time Receive d Time (Source) Location / / Volume Laterality Blood specimen 07/08/2017 4:00 AM 017 4:09 (specimen) EST AM EST Resulting Agency Comment Spec In Lab Yuan Webber MD CHEMISTRY ORDERABLES Performing Organization Address City/State/ZIP [place] [address] (ABNORMAL) Glucose, fasting (07/08/2017 4:00 AM EST) athologist Signature Glucose 287 (H) 65 - 99 [facility] Fasting mg/dL [facility] Comment: ?Fasting* Glucose Interpretive C [...] of Diabetes Mellitus, Position Statement from the [place] [employer]. ??Diabete s Care, Volume 33, Supplement 1, Jul 2009 Specimen Anatomical Collection Method Collection Time Receive d Time (Source) Location / / Volume Laterality Blood specimen 07/08/2017 4:00 AM 017 4:09 (specimen) EST AM EST Resulting Agency Comment Spec In Lab Yuan Webber MD CHEMISTRY ORDERABLES Performing Organization Address [facility] [place] [address] (ABNORMAL) Creatinine (07/08/2017 4:00 AM EST) Analysis Performed At Patho logist Time Signature Creatinine 1.55 (H) 0.80 - [facility] 1.[facility] mg/dL [facility] Estimated GFR 44 (L) >=60 [facility] Comment: The reported eGFR should be multiplied b y 1.2 for patients. The MDRD is not an appropriate measure o f renal function for patients with body mass extremes or in patients with acute kidney failure. http://[employer]DHnkdep http://[employer]DHMCnkf Specimen Anatomical Collection Method Collection Time Receive d Time (Source) Location / / Volume Laterality Blood specimen 07/08/2017 4:00 AM 017 4:09 (specimen) EST AM EST Resulting Agency Comment Spec In Lab Yuan Webber MD CHEMISTRY ORDERABLES Performing Organization Address City/[facility]/ZIP Code Phon e Number [address] BUN (07/08/2017 4:00 AM EST) P athologist Signature BUN 16 10 - 20 [facility] Specimen Anatomical Collection Method Collection Time Receive d Time (Source) Location / / Volume Laterality Blood specimen 07/08/2017 4:00 AM 017 4:09 (specimen) EST AM EST Resulting Agency Comment Spec In Lab Yuan Webber MD CHEMISTRY ORDERABLES Performing Organization Address City/[facility]/[place] [address] (ABNORMAL) POCT Glucose (07/08/2017 3:00 AM EST) P athologist Signature POC Glucose 273 (H) 65 - 199 [facility] mg/dL [facility] Comment: Supplemental ranges: <140 mg/dL before meals <180 mg/dL all other times of the day Specimen Anatomical Collection Method Collection Time Receive d Time (Source) Location / / Volume Laterality Blood specimen 07/08/2017 3:00 AM 017 3:00 (specimen) EST AM EST Daphne Shahid MD POINT OF CARE TEST ORDERABLE S Performing Organization Address City/[facility]/[place] [address] (ABNORMAL) POCT Glucose (07/08/2017 1:57 AM EST) P athologist Signature POC Glucose 288 (H) 65 - 199 [facility] mg/dL [facility] Comment: Supplemental ranges: <140 mg/dL before meals <180 mg/dL all other times of the day Specimen Anatomical Collection Method Collection Time Receive d Time (Source) Location / / Volume Laterality Blood specimen 07/08/2017 1:57 AM 017 1:57 (specimen) EST AM EST Daphne Shahid MD POINT OF CARE TEST ORDERABLE S Performing Organization Address City/State/[place] [address] (ABNORMAL) POCT Glucose (07/08/2017 1:01 AM EST) P athologist Signature POC Glucose 315 (H) 65 - 199 [facility] mg/dL [facility] Comment: Supplemental ranges: <140 mg/dL before meals <180 mg/dL all other times of the day Specimen Anatomical Collection Method Collection Time Receive d Time (Source) Location / / Volume Laterality Blood specimen 07/08/2017 1:01 AM 017 1:01 (specimen) EST AM EST Daphne Shahid MD POINT OF CARE TEST ORDERABLE S Performing Organization Address City/State/ZIP [place] [address] (ABNORMAL) BLOOD GAS 2 ARTERIAL (07/08/2017 12:09 AM EST) athologist Signature pH Art 7.26 7.35 - [facility] (Critical) 7.45 [facility] Comment: Noted by slice cutting machine operator. pCO2 Art 41 35 - 45 mmHg [facility] LABORATORY pO2 Art 96 85 - 104 mmHg [facility] HCO3 Art 17.7 (L) 20.0 - 26.0 mmol/L [facility] BE Art -9.4 (L) -3.0 - 3.0 mmol/L [facility] LABORATORY Hgb Blood Gas 12.4 (L) 13.7 - 16.5 gm/dL [facility] LABORATORY O2HB Art 94.7 94.0 - 97.0 % [facility] COHB Art 0.2 % [facility] Comment: Nonsmokers: 0.5-1.5% COHB Smokers: Variable, but usually less than 10% Toxic: 20-30% COHB Lethal: Greater than 60% COHB METHB Art 0.6 <=1.5 % [facility] Na Whole Blood 141 [...] Bld 315 (H) 65 - 199 mg/dL [facility] Comment: Diabetes: >=200 mg/dL plus symp toms. Lactate WB 7.6 (Critical) 0.5 - 2.2 mmol/L [facility] Comment: Noted by slice cutting machine operator. FIO2 Art 40 % [facility] PF Ratio Art 240 [facility] LABORATORY Specimen Anatomical Collection Method Collection Time Receive d Time (Source) Location / / Volume Laterality Blood specimen Arterial Draw / 07/08/2017 12:09 2016 5:31 (specimen) Unknown AM EST AM EST Resulting Agency Comment Spec In Lab Samy Maldonado MD CHEMISTRY ORDERABLES Performing Organization Address City/[facility]/[place] [address] (ABNORMAL) POCT Glucose (07/07/2017 10:56 PM EST) P athologist Signature POC Glucose 292 (H) 65 - 199 [facility] mg/dL [facility] Comment: Supplemental ranges: <140 mg/dL before meals <180 mg/dL all other times of the day Specimen Anatomical Collection Method Collection Time Receive d Time (Source) Location / / Volume Laterality Blood specimen 07/07/2017 10:56 7 (specimen) PM EST 10:56 PM EST Daphne Shahid MD POINT OF CARE TEST ORDERABLE S Performing Organization Address City/State/[place] [address] (ABNORMAL) BLOOD GAS 2 ARTERIAL (07/07/2017 10:04 PM EST) P athologist Signature pH Art 7.22 7.35 - [facility] (Critical) 7.45 [facility] Comment: Noted by slice cutting machine operator. pCO2 Art 42 35 - 45 mmHg [facility] LABORATORY pO2 Art 94 85 - 104 mmHg [facility] HCO3 Art 16.9 (L) 20.0 - 26.0 mmol/L [facility] BE Art -10.7 (L) -3.0 - 3.0 mmol/L [facility] LABORATORY Hgb Blood Gas 13.0 (L) 13.7 - 16.5 gm/dL [facility]ORATORY O2HB Art 93.8 (L) 94.0 - 97.0 % [facility] COHB Art 0.7 % [facility] Comment: Nonsmokers: 0.5-1.5% COHB Smokers: Variable, but usually less than 10% Toxic: 20-30% COHB Lethal: Greater than 60% COHB METHB Art 0.7 <=1.5 % [facility] Na Whole Blood 140 [...] Bld 304 (H) 65 - 199 mg/dL [facility] Comment: Diabetes: >=200 mg/dL plus symp toms. Lactate WB 8.2 (Critical) 0.5 - 2.2 mmol/L [facility] Comment: Noted by slice cutting machine operator. FIO2 Art 40 % [facility] PF Ratio Art 235 [facility] LABORATORY Specimen Anatomical Collection Method Collection Time Receive d Time (Source) Location / / Volume Laterality Blood specimen 07/07/2017 10:04 7 (specimen) PM EST 10:04 PM EST Daphne Shahid MD CHEMISTRY ORDERABLES Performing Organization Address City/State/ZIP [place] [address] (ABNORMAL) Hemoglobin (07/07/2017 10:00 PM EST) athologist Signature Hemoglobin 12.8 (L) 13.7 - [place] [facility] 16.5 gm/dL [facility] Specimen Anatomical Collection Method Collection Time Receive d Time (Source) Location / / Volume Laterality Blood specimen 07/07/2017 10:00 7 (specimen) PM EST 10:13 PM EST Resulting Agency Comment Spec In Lab Yuan Webber MD HEMATOLOGY ORDERABLES Performing Organization Address City/[facility] [place] [address] (ABNORMAL) Potassium (07/07/2017 10:00 PM EST) athologist [facility] Potassium 3.4 (L) 3.5 - 5.0 [facility] Comment: Please note: ??Patients with [...] CHEMISTRY ORDERABLES Performing Organization Address [facility] [place] [address] (ABNORMAL) POCT Glucose (07/07/2017 8:49 PM EST) athologist [facility] POC Glucose 241 (H) 65 - 199 [facility] mg[facility]dL [facility] Comment: Supplemental ranges: <140 mg/dL before meals <180 mg/dL all other times of the day Specimen Anatomical Collection Method Collection Time Receive d Time (Source) Location / / Volume Laterality Blood specimen 07/07/2017 8:49 PM 017 8:49 (specimen) EST PM EST Daphne Shahid MD POINT OF CARE TEST ORDERABLE S Performing Organization Address City/[facility]/ZIP Code Phon e Number [address] Prepare Albumin 5% in [...] BROWN BLOOD BANK ORDERABLES Performing Organization Address City/[facility]/ZIP Code Phon e Number [address] EKG 12 Lead (07/07/2017 7:17 PM EST) Component Value Ref Range Test Analysis Performed Pathologis t Method Time At Signature Ventricular rate 75 BPM MUSE SYSTEM Atrial Rate 75 BPM MUSE SYSTEM P-R Interval 168 ms MUSE SYSTEM QRS Duration 104 ms MUSE SYSTEM Q-T Interval 462 ms MUSE SYSTEM QTC Calculated 515 ms MUSE SYSTEM (Bezet) Calculated P [place] 52 degrees MUSE SYSTEM Calculated R [place] -40 degrees MUSE SYSTEM Calculated T [place] 39 degrees MUSE SYSTEM INTERPRETATION Normal sinus [...] Webber MD ECG ORDERABLES Performing Organization Address City/[facility]/ZIP Code Phon e Number MUSE SYSTEM [...] 7.21 7.35 - [facility] (Critical) 7.45 [facility] Comment: Noted by slice cutting machine operator. pCO2 Art 50 (H) 35 - 45 mmHg [facility] LABORATORY pO2 Art 238 (H) 85 - 104 mmHg [facility] HCO3 Art 19.8 (L) 20.0 - 26.0 mmol/L [facility] [facility] BE Art -8.1 (L) -3.0 - 3.0 mmol/L [facility] Hgb Blood Gas 12.8 (L) 13.7 - 16.5 gm/dL [facility] O2HB Art 97.5 (H) 94.0 - 97.0 % [facility] COHB Art 0.5 % [facility] Comment: Nonsmokers: 0.5-1.5% COHB Smokers: Variable, but usually less than 10% Toxic: 20-30% COHB Lethal: Greater than 60% COHB METHB Art 0.7 <=1.5 % [facility] Na Whole Blood 140 135 - 145 mmol/L [facility] K Whole Blood 3.0 (Critical) 3.5 - 5.0 mmol/L [facility] Comment: Noted by slice cutting machine operator. Please note: Patients with WBC >100,000 [...] Bld 270 (H) 65 - 199 mg/dL [facility] Comment: Diabetes: >=200 mg/dL plus symp toms. Lactate WB 4.9 (Critical) 0.5 - 2.2 mmol/L [facility] Comment: Noted by slice cutting machine operator. FIO2 Art 100 % [facility] PF Ratio Art 238 [facility] Specimen Anatomical Collection Method Collection Time Receive d Time (Source) Location / / Volume Laterality Blood specimen 07/07/2017 6:57 PM 017 6:57 (specimen) EST PM EST Daphne Shahid MD CHEMISTRY ORDERABLES Performing Organization Address City/State/ZIP [place] [address] (ABNORMAL) BLOOD GAS 2 ARTERIAL (07/07/2017 5:31 PM EST) athologist Signature pH Art 7.29 7.35 - [facility] (Critical) 7.45 [facility] Comment: Noted by slice cutting machine operator. pCO2 Art 48 (H) 35 - 45 mmHg [facility] pO2 Art 137 (H) 85 - 104 mmHg [facility] HCO3 Art 22.4 20.0 - 26.0 mmol/L [facility] BE Art -4.3 (L) -3.0 - 3.0 mmol/L [facility] Hgb Blood Gas 10.0 (L) 13.7 - 16.5 gm/dL [facility] O2HB Art 97.3 (H) 94.0 - 97.0 % [facility] COHB Art 0.3 % [facility] Comment: Nonsmokers: 0.5-1.5% COHB Smokers: Variable, but usually less than 10% Toxic: 20-30% COHB Lethal: Greater than 60% COHB METHB Art 0.3 <=1.5 % [facility] Na Whole Blood 132 [...] Bld 293 (H) 65 - 199 mg/dL [facility] Comment: Diabetes: >=200 mg/dL plus symp toms. Lactate WB 3.1 (H) 0.5 - 2.2 mmol/L [facility] Specimen Anatomical Collection Method Collection Time Receive d Time (Source) Location / / Volume Laterality Blood specimen 07/07/2017 5:31 PM 017 5:31 (specimen) EST PM EST Daphne Shahid MD CHEMISTRY ORDERABLES Performing Organization Address City/[facility]/[place] [address] Fibrinogen (07/07/2017 5:30 PM EST) athologist Signature Fibrinogen 224 180 - 510 [facility] mg/dL [facility] Comment: Called by: JEET, Read [...] Perez MD HEMATOLOGY ORDERABLES Performing Organization Address City/[facility] Code Phon e Number [address] APTT (07/07/2017 5:30 PM EST) athologist Signature PTT 30 25 - 35 sec [facility] Comment: The recommended therapeutic range for fu ll dose, unfractionated heparin at [facility] is 80 ? 114 seconds. [...] Perez MD HEMATOLOGY ORDERABLES Performing Organization Address City/[facility]/ZIP [facility] [place] [address] (ABNORMAL) Prothrombin Time (07/07/2017 5:30 PM EST) athologist Signature PT 19.0 (H) 11.8 - 14.0 [facility] sec [facility] INR 1.6 (H) 0.9 - [...] Address City/State/ZIP [place] [address] (ABNORMAL) Hemogram (07/07/2017 5:30 PM EST) athologist Signature WBC 19.6 (H) 4.0 - 9.5 [facility] x10(3)/[facility] LABORATORY RBC 3.08 (L) 4.58 - [facility] 5.54 [facility] x10(6)/[facility] LABORATORY Hemoglobin 9.2 (L) 13.7 - [facility] 16.5 gm/dL [facility] Hematocrit 28.0 (L) 40.5 - [facility] 48.5 % [facility] Comment: This result has been [...] RDWSD 46.5 (H) 36.0 - 45.0 fL [facility] RDWCV 14.1 (H) 11.4 - 13.8 % [facility] MPV 9.5 7.6 - 12.9 fL [facility] nRBC % Auto 0.0 % [facility] nRBC Abs Auto 0.000 0.000 - 0.000 x10(3)/[facility] LABORATORY Specimen Anatomical Collection Method Collection Time Receive d Time (Source) Location / / Volume Laterality Blood specimen 07/07/2017 5:30 PM 017 5:34 (specimen) EST PM EST Resulting Agency Comment Spec In Lab Yifan Perez MD HEMATOLOGY ORDERABLES Performing Organization Address City/[facility] Phon e Number [address] Prepare Platelets, Apheresis (07/07/2017 5:00 PM EST) athologist Signature Dispensed? Yes [facility] Specimen Anatomical Collection Method Collection Time Receive d Time (Source) Location / / Volume Laterality Blood specimen 07/07/2017 5:00 PM 017 4:58 (specimen) EST PM EST Daphne Shahid MD BLOOD BANK ORDERABLES Performing Organization Address [facility] Phon e Number [address] Platelet count (07/07/2017 4:55 PM EST) athologist Signature Platelets 177 145 - 357 [facility] x10(3)/[facility] LABORATORY Plat Immature 1.5 0.0 - 7.4 [facility] Comment: Limitation of the Immature Platelet Frac tion (IPF)-May be less reliable when the platelet count is less than 51h242/u L due to statistical imprecision. The IPF [...] in a decreased state of production. References: [employer] The Clinical Value of the Immature Platelet Fraction (IPF) in Cell Recovery Document Number [id number] 12/2010 [employer] The Role of the Imm ature Platelet Fraction (IPF) in the Differential Diagnosis of Thrombocytopen ia, Document [id number] V012/04/13 P012/06 Specimen Anatomical Collection Method Collection Time Receive d Time (Source) Location / / Volume Laterality Blood specimen 07/07/2017 4:55 PM 017 5:13 (specimen) EST PM EST Resulting Agency Comment Spec In Lab Daphne Shahid MD HEMATOLOGY ORDERABLES Performing Organization Address City/[facility]/[place] [address] (ABNORMAL) Hemoglobin and Hematocrit, blood (07/07/2017 4:55 PM EST) athologist Signature Hemoglobin 9.1 (L) 13.7 - 16.5 [facility] gm/dL [facility] Comment: This result has been [...] Shahid MD HEMATOLOGY ORDERABLES Performing Organization Address City/[facility]/[place] [address] (ABNORMAL) BLOOD GAS 2 ARTERIAL (07/07/2017 4:38 PM EST) Analysis Performed At Patho logist Time Signature pH Art 7.37 7.35 - [facility] 7.45 [facility] pCO2 Art 44 35 - 45 [facility] mmHg [facility] pO2 Art 322 (H) 85 - 104 [facility] mmHg [facility] HCO3 Art 24.9 20.0 - [facility] 26.0 [facility] mmol/L [facility] BE Art -0.4 -3.0 - 3.0 [facility] mmol/L [facility] Hgb Blood Gas 10.1 (L) 13.7 - [facility] 16.5 gm/dL [facility] O2HB Art 98.7 (H) 94.0 - [facility] 97.0 % [facility] COHB Art 0.1 % [facility] Comment: Nonsmokers: 0.5-1.5% COHB Smokers: Variable, but usually less than 10% Toxic: 20-30% COHB Lethal: Greater than 60% COHB METHB Art 0.3 <=1.5 % [facility] Na Whole Blood 130 [...] [facility] Comment: Noted by slice cutting machine operator. Note: ??Total bilirubin higher than 20 m g/dL may lead to falsely low ionized calcium. CL Whole Blood 101 98 - 107 mmol/L [facility] Gluc Whole Bld 295 (H) 65 - 199 mg/dL [facility] Comment: Diabetes: >=200 mg/dL plus symp toms. Lactate WB 1.7 0.5 - 2.2 mmol/L [facility] Specimen Anatomical Collection Method Collection Time Receive d Time (Source) Location / / Volume Laterality Blood specimen 07/07/2017 4:38 PM 017 4:38 (specimen) EST PM EST Daphne Shahid MD CHEMISTRY ORDERABLES Performing Organization Address City/State/ZIP [place] [address] (ABNORMAL) BLOOD GAS 2 VENOUS (07/07/2017 4:06 PM EST) Analysis Performed At Patho logist Time Signature pH Cody 7.31 (L) 7.32 - [facility] 7.42 [facility] pCO2 Cody 47 41 - 51 [facility] LABORATORY pO2 Cody 53 (H) 25 - 40 [facility] LABORATORY HCO3 Cody 22.7 mmol/L [facility] BE Cody -3.7 mmol/L [facility] Hgb Blood Gas 10.2 (L) 13.7 - [facility] 16.5 gm/dL [facility] O2HB Cody 81.0 % [facility] COHB Cody 1.0 % [facility] Comment: Nonsmokers: 0.5-1.5% COHB Smokers: Variable, but usually less than 10% Toxic: 20-30% COHB Lethal: Greater than 60% COHB METHB Cody 0.3 <=1.5 % [facility] Na Whole Blood 132 [...] [facility] Comment: Noted by slice cutting machine operator. Note: ??Total bilirubin higher than 20 m g/dL may lead to falsely low ionized calcium. CL Whole Blood 100 98 - 107 mmol/L [facility] Gluc Whole Bld 231 (H) 65 - 199 mg/dL [facility] Comment: Diabetes: >=200 mg/dL plus symp toms Lactate WB 1.1 0.5 - 2.2 mmol/L [facility] BGas Source Venous [facility] Specimen Anatomical Collection Method Collection Time Receive d Time (Source) Location / / Volume Laterality Blood specimen 07/07/2017 4:06 PM 017 4:06 (specimen) EST PM EST Daphne Shahid MD CHEMISTRY ORDERABLES Performing Organization Address City/State/ZIP [place] [address] (ABNORMAL) BLOOD GAS 2 ARTERIAL (07/07/2017 4:05 PM EST) Analysis Performed At Patho logist Time Signature pH Art 7.36 7.35 - [facility] 7.45 [facility] pCO2 Art 40 35 - 45 [facility] LABORATORY pO2 Art 282 (H) 85 - 104 [facility] LABORATORY HCO3 Art 22.1 20.0 - [facility] 26.0 [facility] mmol/L [facility] BE Art -3.4 (L) -3.0 - 3.0 [facility] mmol/L [facility] Hgb Blood Gas 10.2 (L) 13.7 - [facility] 16.5 gm/dL [facility] O2HB Art 98.4 (H) 94.0 - [facility] 97.0 % [facility] COHB Art 0.3 % [facility] Comment: Nonsmokers: 0.5-1.5% COHB Smokers: Variable, but usually less than 10% Toxic: 20-30% COHB Lethal: Greater than 60% COHB METHB Art 0.3 <=1.5 % [facility] Na Whole Blood 131 [...] [facility] Comment: Noted by slice cutting machine operator. Note: ??Total bilirubin higher than 20 m g/dL may lead to falsely low ionized calcium. CL Whole Blood 101 98 - 107 mmol/L [facility] Gluc Whole Bld 260 (H) 65 - 199 mg/dL [facility] Comment: Diabetes: >=200 mg/dL plus symp toms. Lactate WB 1.4 0.5 - 2.2 mmol/L [facility] Specimen Anatomical Collection Method Collection Time Receive d Time (Source) Location / / Volume Laterality Blood specimen 07/07/2017 4:05 PM 017 4:05 (specimen) EST PM EST Daphne Shahid MD CHEMISTRY ORDERABLES Performing Organization Address City/State/ZIP [place] [address] (ABNORMAL) BLOOD GAS 2 ARTERIAL (07/07/2017 2:29 PM EST) Analysis Performed At Patho logist Time Signature pH Art 7.43 7.35 - [facility] 7.45 [facility] pCO2 Art 36 35 - 45 [facility] mmHg [facility] pO2 Art 221 (H) 85 - 104 [facility] LABORATORY HCO3 Art 23.2 20.0 - [facility] 26.0 [facility] mmol/[facility] LAB[facility]ORY BE Art -1.2 -3.0 - 3.0 [facility] mmol/L [facility] Hgb Blood Gas 13.9 13.7 - [facility] 16.5 gm/dL [facility] O2HB Art 97.8 (H) 94.0 - [facility] 97.0 % [facility] COHB Art 1.1 % [facility] Comment: Nonsmokers: 0.5-1.5% COHB Smokers: Variable, but usually less than 10% Toxic: 20-30% COHB Lethal: Greater than 60% COHB METHB Art 0.3 <=1.5 % [facility] Na Whole Blood 139 [...] Whole Bld 184 65 - 199 mg/dL [facility] Comment: Diabetes: >=200 mg/dL plus symp toms. Lactate WB 1.5 0.5 - 2.2 mmol/L [facility] Specimen Anatomical Collection Method Collection Time Receive d Time (Source) Location / / Volume Laterality Blood specimen 07/07/2017 2:29 PM 017 2:29 (specimen) EST PM EST Daphne Shahid MD CHEMISTRY ORDERABLES Performing Organization Address City/[facility] [place] [place] [address] Prepare Coag Factors (Non-Hemophilia) (07/07/2017 1:25 PM EST) P athologist Signature Dispensed? Yes [facility] Specimen Anatomical Collection Method Collection Time Receive d Time (Source) Location / / Volume Laterality Blood specimen 07/07/2017 1:25 PM 017 1:21 (specimen) EST PM EST Daphne Shahid MD BLOOD BANK ORDERABLES Performing Organization Address City/[facility]/[place] [address] Prepare RBC (07/07/2017 1:10 PM EST) P athologist Signature Dispensed? Yes [facility] Specimen Anatomical Collection Method Collection Time Receive d Time (Source) Location / / Volume Laterality Blood specimen 07/07/2017 1:10 PM 017 1:05 (specimen) EST PM EST Daphne Shahid MD BLOOD BANK ORDERABLES Performing Organization Address City/[facility]/ZIP [place] [address] POCT Glucose (07/07/2017 11:56 AM EST) athologist Signature POC Glucose 188 65 - 199 [place] mg/dL [facility] Comment: Supplemental [...] Address City/State/ZIP Code Phon e Number [address] POCT Glucose (07/07/2017 11:05 AM EST) athologist Signature POC Glucose 168 65 - 199 [facility] mg/dL [facility] [...] Address City/State/ZIP Code Phon e Number [address] POCT Glucose (07/07/2017 10:02 AM EST) athologist Signature POC Glucose 191 65 - 199 [place] mg/dL [facility] Comment: Supplemental [...] Address City/State/[place] [address] POCT Glucose (07/07/2017 7:53 AM EST) athologist Signature POC Glucose 178 65 - 199 [place] mg/dL [facility] Comment: Supplemental [...] Address City/State/[place] [address] POCT Glucose (07/07/2017 7:03 AM EST) athologist Signature POC Glucose 188 65 - 199 [facility] mg/dL [facility] [...] Address City/State/[place] [address] (ABNORMAL) POCT Glucose (07/07/2017 6:17 AM EST) athologist Signature POC Glucose 207 (H) 65 - 199 [facility] Comment: Supplemental ranges: <140 mg/dL before meals <180 mg/dL all other times of the day Specimen Anatomical Collection Method Collection Time Receive d Time (Source) Location / / Volume Laterality Blood specimen 07/07/2017 6:17 AM 017 6:17 (specimen) EST AM EST Daphne Shahid MD POINT OF CARE TEST ORDERABLE S Performing Organization Address City/State/[place] [address] Differential, Automated (07/07/2017 5:15 AM EST) P athologist Signature Neutrophils % 69.7 % [facility] Neutr Abs (ANC) 5.32 1.70 - [facility] 6.10 [facility] x10(3)/[facility] LABORATORY Lymphocytes % 16.3 % [facility] Lymphocytes Abs 1.2 0.9 - 3.2 [facility] x10(3)/[facility] LABORATORY Monocytes % 10.5 % [facility] Monocyte Abs 0.8 0.3 - 0.9 [facility] x10(3)/[facility] LABORATORY Eosinophils % 2.5 % [facility] Eosinophils Abs 0.2 0.0 - 0.4 [facility] x10(3)/[facility] LABORATORY Basophils % 0.7 % [facility] Basophils Abs 0.0 0.0 - 0.1 [facility] x10(3)/[facility] LABORATORY Immature Gran [...] Melisa Gran Abs 0.02 0.00 - 0.04 x10(3)/[facility] Specimen Anatomical Collection Method Collection Time Receive d Time (Source) Location / / Volume Laterality Blood specimen 07/07/2017 5:15 AM 017 5:34 (specimen) EST AM EST Resulting Agency Comment Spec In Lab Daphne Shahid MD HEMATOLOGY ORDERABLES Performing Organization Address City/State/ZIP [place] [address] (ABNORMAL) Hemogram (07/07/2017 5:15 AM EST) Analysis Performed At Patho logist Time Signature WBC 7.6 4.0 - 9.5 [facility] x10(3)/[facility] LABORATORY RBC 4.82 4.58 - [facility] 5.54 [facility] x10(6)/[facility] LABORATORY Hemoglobin 14.4 13.7 - [facility] 16.[facility] gm/dL [facility] Hematocrit 42.1 40.5 - [facility] 48.5 % [facility] MCV 87.3 82.9 - [facility] 93.1 [facility] LABORATORY MCH 29.9 27.5 - [place] 32.1 pg [facility] MCHC 34.2 32.0 - [facility] 35.7 gm/dL [facility] Platelets 188 145 - 357 [facility] x10(3)/[facility] LABORATORY RDWSD 45.1 (H) 36.0 - [facility] 45.0 [facility] LABORATORY RDWCV 14.3 (H) 11.4 - [facility] 13.8 % [facility] MPV 9.4 7.6 - 12.9 [facility] LABORATORY nRBC % Auto 0.0 % [facility] nRBC Abs Auto 0.000 0.000 - [facility] 0.000 [facility] x10(3)/[facility] LABORATORY Specimen Anatomical Collection Method Collection Time Receive d Time (Source) Location / / Volume Laterality Blood specimen 07/07/2017 5:15 AM 017 5:34 (specimen) EST AM EST Resulting Agency Comment Spec In Lab Daphne Shahid MD HEMATOLOGY ORDERABLES Performing Organization Address City/State/ZIP [place] [address] (ABNORMAL) APTT (07/07/2017 5:15 AM EST) P athologist Signature PTT 69 (H) 25 - 35 sec [facility] Comment: The recommended therapeutic range for fu ll dose, unfractionated heparin at [facility] is 80 ? 114 seconds. [...] Address City/State/ZIP Code Phon e Number [address] Magnesium (07/07/2017 5:15 AM EST) athologist Signature Magnesium 0.94 0.69 - 1.07 [facility] mmol/L [facility] Specimen Anatomical Collection Method Collection Time Receive d Time (Source) Location / / Volume Laterality Blood specimen 07/07/2017 5:15 AM 017 5:34 (specimen) EST AM EST Resulting Agency Comment Spec In Lab Daphne Shahid MD CHEMISTRY ORDERABLES Performing Organization Address City/[facility]/ZIP Code Phon e Number [address] (ABNORMAL) Basic Metabolic Panel (non-fasting) (07/07/2017 5:15 AM EST) athologist Signature Glucose Lvl 203 (H) 65 - 199 [facility] mg/dL [facility] Comment: Diabetes: >=200 mg/dL plus symp toms BUN 15 10 - 20 mg/dL [facility] Creatinine 1.09 0.80 - 1.50 mg/dL [facility] Sodium 142 135 - 145 mmol/L [facility] Potassium 4.4 3.5 - 5.0 mmol/L [facility] Estimated GFR >60 >=60 [facility] Comment: The reported eGFR should be multiplied b y 1.2 for patients. The MDRD is not an appropriate measure o f renal function for patients with body mass extremes or in patients with acute kidney failure. http://[employer]/DHnkdep http://[employer]/DHMCnkf Specimen Anatomical Collection Method Collection Time Receive d Time (Source) Location / / Volume Laterality Blood specimen 07/07/2017 5:15 AM 017 5:34 (specimen) EST AM EST Resulting Agency Comment Spec In Lab Daphne Shahid MD CHEMISTRY ORDERABLES Performing Organization Address City/State/ZIP [place] [address] (ABNORMAL) Cardiac Enzymes (LEB/CGP) (07/07/2017 5:15 AM EST) P athologist Signature Troponin-T 2.07 (H) 0.00 - [facility] ng/mL [facility] Comment: The 99th percentile for [...] additional sample may be indicated. Reference: [facility] Definition of Myocardial Infarction. Journal of the [employer] [employer] 2012;60:1581-98 CK, Total 88 0 - 200 unit/L [facility] Specimen Anatomical Collection Method Collection Time Receive d Time (Source) Location / / Volume Laterality Blood specimen 07/07/2017 5:15 AM 017 5:34 (specimen) EST AM EST Resulting Agency Comment Spec In Lab Daphne Shahid MD CHEMISTRY ORDERABLES Performing Organization Address City/State/ZIP Code Phon e Number [address] POCT Glucose (07/07/2017 5:01 AM EST) athologist Signature POC Glucose 182 65 - 199 [facility] Comment: Supplemental ranges: <140 mg/dL before meals <180 mg/dL all other times of the day Specimen Anatomical Collection Method Collection Time Receive d Time (Source) Location / / Volume Laterality Blood specimen 07/07/2017 5:01 AM 017 5:01 (specimen) EST AM EST Daphne Shahid MD POINT OF CARE TEST ORDERABLE S Performing Organization Address City/State/ZIP Code Phon e Number [address] POCT Glucose (07/07/2017 4:08 AM EST) athologist Signature POC Glucose 199 65 - 199 [facility] Comment: Supplemental ranges: <140 mg/dL before meals <180 mg/dL all other times of the day Specimen Anatomical Collection Method Collection Time Receive d Time (Source) Location / / Volume Laterality Blood specimen 07/07/2017 4:08 AM 017 4:08 (specimen) EST AM EST Daphne Shahid MD POINT OF CARE TEST ORDERABLE S Performing Organization Address City/State/ZIP Code Phon e Number [address] POCT Glucose (07/07/2017 3:03 AM EST) athologist Signature POC Glucose 188 65 - 199 [facility] Comment: Supplemental ranges: <140 mg/dL before meals <180 mg/dL all other times of the day Specimen Anatomical Collection Method Collection Time Receive d Time (Source) Location / / Volume Laterality Blood specimen 07/07/2017 3:03 AM 017 3:03 (specimen) EST AM EST Daphne Shahid MD POINT OF CARE TEST ORDERABLE S Performing Organization Address City/State/[place] [address] (ABNORMAL) POCT Glucose (07/07/2017 2:08 AM EST) P athologist Signature POC Glucose 200 (H) 65 - 199 [facility] mg[facility]dL [facility] Comment: Supplemental ranges: <140 mg/dL before meals <180 mg/dL all other times of the day Specimen Anatomical Collection Method Collection Time Receive d Time (Source) Location / / Volume Laterality Blood specimen 07/07/2017 2:08 AM 017 2:08 (specimen) EST AM EST Daphne Shahid MD POINT OF CARE TEST ORDERABLE S Performing Organization Address City/[facility]/[place] [address] (ABNORMAL) POCT Glucose (07/07/2017 1:31 AM EST) P athologist Signature POC Glucose 209 (H) 65 - 199 [facility] mg/dL [facility] Comment: Supplemental ranges: <140 mg/dL before meals <180 mg/dL all other times of the day Specimen Anatomical Collection Method Collection Time Receive d Time (Source) Location / / Volume Laterality Blood specimen 07/07/2017 1:31 AM 017 1:31 (specimen) EST AM EST Daphne Shahid MD POINT OF CARE TEST ORDERABLE S Performing Organization Address City/[facility]/[place] [address] XR Chest PA or [...] 161 65 - 199 [facility] mg/dL [facility] Comment: Supplemental ranges: <140 mg/dL before meals <180 mg/dL all other times of the day Specimen Anatomical Collection Method Collection Time Receive d Time (Source) Location / / Volume Laterality Blood specimen 07/07/2017 12:07 7 (specimen) AM EST 12:07 AM EST Daphne Shahid MD POINT OF CARE TEST ORDERABLE S Performing Organization Address City/State/ZIP [place] [address] (ABNORMAL) APTT (07/07/2017 12:00 AM EST) athologist Signature PTT 103 (H) 25 - 35 sec [facility] Comment: The recommended therapeutic range for fu ll dose, unfractionated heparin at [facility] is 80 ? 114 seconds. [...] Address City/State/ZIP Code Phon e Number [address] POCT Glucose (07/06/2017 9:55 PM EST) athologist Signature POC Glucose 109 65 - 199 [place] [facility] mg/dL [facility] Comment: Supplemental ranges: <140 mg/dL before meals <180 mg/dL all other times of the day Specimen Anatomical Collection Method Collection Time Receive d Time (Source) Location / / Volume Laterality Blood specimen 07/06/2017 9:55 PM 017 9:55 (specimen) EST PM EST Daphne Shahid MD POINT OF CARE TEST ORDERABLE S Performing Organization Address City/[facility]/ZIP Code Phon e Number [address] POCT Glucose (07/06/2017 9:04 PM EST) athologist Signature POC Glucose 120 65 - 199 [place] [facility] mg/dL [facility] Comment: Supplemental ranges: <140 mg/dL before meals <180 mg/dL all other times of the day Specimen Anatomical Collection Method Collection Time Receive d Time (Source) Location / / Volume Laterality Blood specimen 07/06/2017 9:04 PM 017 9:04 (specimen) EST PM EST Daphne Shahid MD POINT OF CARE TEST ORDERABLE S Performing Organization Address City/[facility]/ZIP Code Phon e Number [address] POCT Glucose (07/06/2017 7:45 PM EST) athologist Signature POC Glucose 158 65 - 199 [place] [facility] mg/dL [facility] Comment: Supplemental ranges: <140 mg/dL before meals <180 mg/dL all other times of the day Specimen Anatomical Collection Method Collection Time Receive d Time (Source) Location / / Volume Laterality Blood specimen 07/06/2017 7:45 PM 017 7:45 (specimen) EST PM EST Daphne Shahid MD POINT OF CARE TEST ORDERABLE S Performing Organization Address City/[facility]/[place] [address] Potassium (07/06/2017 7:40 PM EST) athologist Signature Potassium 3.9 3.5 - 5.0 [facility] mmol/L [facility] Comment: Please note: ??Patients with [...] Shahid MD CHEMISTRY ORDERABLES Performing Organization Address City/[facility]/ZIP Code Phon e Number [address] (ABNORMAL) Cardiac Enzymes (LEB/CGP) (07/06/2017 7:40 PM EST) athologist Signature Troponin-T 2.27 (H) 0.00 - [facility] 0.00 ng/mL [facility] Comment: The 99th percentile for [...] additional sample may be indicated. Reference: [facility] Definition of Myocardial Infarction. Journal of the [employer] [employer] 2012;60:1581-98 CK, Total 93 0 - 200 unit/L [facility] Specimen Anatomical Collection Method Collection Time Receive d Time (Source) Location / / Volume Laterality Blood specimen 07/06/2017 7:40 PM 017 7:52 (specimen) EST PM EST Resulting Agency Comment Spec In Lab Daphne Shahid MD CHEMISTRY ORDERABLES Performing Organization Address City/[facility]/[place] [address] (ABNORMAL) POCT Glucose (07/06/2017 7:13 PM EST) P athologist Signature POC Glucose 200 (H) 65 - 199 [facility] mg/dL [facility] Comment: Supplemental ranges: <140 mg/dL before meals <180 mg/dL all other times of the day Specimen Anatomical Collection Method Collection Time Receive d Time (Source) Location / / Volume Laterality Blood specimen 07/06/2017 7:13 PM 017 7:13 (specimen) EST PM EST Daphne Shahid MD POINT OF CARE TEST ORDERABLE S Performing Organization Address City/State/[place] [address] (ABNORMAL) APTT (07/06/2017 6:15 PM EST) P athologist Signature PTT 94 (H) 25 - 35 sec [facility] Comment: The recommended therapeutic range for fu ll dose, unfractionated heparin at [facility] is 80 ? 114 seconds. [...] Shahid MD HEMATOLOGY ORDERABLES Performing Organization Address City/[facility]/[place] [address] (ABNORMAL) POCT Glucose (07/06/2017 6:03 PM EST) athologist Signature POC Glucose 236 (H) 65 - 199 [place] [facility] mg/dL [facility] Comment: Supplemental ranges: <140 mg/dL before meals <180 mg/dL all other times of the day Specimen Anatomical Collection Method Collection Time Receive d Time (Source) Location / / Volume Laterality Blood specimen 07/06/2017 6:03 PM 017 6:03 (specimen) EST PM EST Daphne Shahid MD POINT OF CARE TEST ORDERABLE S Performing Organization Address City/[facility]/[place] [address] (ABNORMAL) POCT Glucose (07/06/2017 5:01 PM EST) athologist Signature POC Glucose 235 (H) 65 - 199 [place] mg/dL [facility] Comment: Supplemental ranges: <140 mg/dL before meals <180 mg/dL all other times of the day Specimen Anatomical Collection Method Collection Time Receive d Time (Source) Location / / Volume Laterality Blood specimen 07/06/2017 5:01 PM 017 5:01 (specimen) EST PM EST Daphne Shahid MD POINT OF CARE TEST ORDERABLE S Performing Organization Address City/[facility]/[place] [address] (ABNORMAL) POCT Glucose (07/06/2017 4:06 PM EST) athologist Signature POC Glucose 202 (H) 65 - 199 [place] [facility] mg/dL [facility] Comment: Supplemental [...] Address City/State/[place] [address] POCT Glucose (07/06/2017 2:59 PM EST) athologist Signature POC Glucose 178 65 - 199 [facility] Comment: Supplemental ranges: <140 mg/dL before meals <180 mg/dL all other times of the day Specimen Anatomical Collection Method Collection Time Receive d Time (Source) Location / / Volume Laterality Blood specimen 07/06/2017 2:59 PM 017 2:59 (specimen) EST PM EST Daphne Shahid MD POINT OF CARE TEST ORDERABLE S Performing Organization Address City/State/[place] [address] (ABNORMAL) Cardiac Enzymes (LEB/CGP) (07/06/2017 2:10 PM EST) athologist Signature Troponin-T 2.34 (H) 0.00 - [place] [facility] 0.00 ng/mL [facility] Comment: The 99th percentile for [...] additional sample may be indicated. Reference: [facility] Definition of Myocardial Infarction. Journal of the [place] [employer] 2012;60:1581-98 CK, Total 101 0 - 200 unit/L [facility] Specimen Anatomical Collection Method Collection Time Receive d Time (Source) Location / / Volume Laterality Blood specimen 07/06/2017 2:10 PM 017 2:26 (specimen) EST PM EST Resulting Agency Comment Spec In Lab Daphne Shahid MD CHEMISTRY ORDERABLES Performing Organization Address City/[facility]/ZIP [facility] Phon e Number [address] POCT Glucose (07/06/2017 2:08 PM EST) P athologist Signature POC Glucose 192 65 - 199 [facility] mg/dL [facility] Comment: Supplemental ranges: <140 mg/dL before meals <180 mg/dL all other times of the day Specimen Anatomical Collection Method Collection Time Receive d Time (Source) Location / / Volume Laterality Blood specimen 07/06/2017 2:08 PM 017 2:08 (specimen) EST PM EST Daphne Shahid MD POINT OF CARE TEST ORDERABLE S Performing Organization Address City/[facility]/[place] [address] POCT Glucose (07/06/2017 1:04 PM EST) P athologist Signature POC Glucose 162 65 - 199 [facility] Comment: Supplemental ranges: <140 mg/dL before meals <180 mg/dL all other times of the day Specimen Anatomical Collection Method Collection Time Receive d Time (Source) Location / / Volume Laterality Blood specimen 07/06/2017 1:04 PM 017 1:04 (specimen) EST PM EST Daphne Shahid MD POINT OF CARE TEST ORDERABLE S Performing Organization Address City/State/ZIP [place] [address] [facility] [address] POCT Glucose (07/06/2017 12:05 PM EST) P athologist Signature POC Glucose 196 65 - 199 [facility] mg/dL [facility] Comment: Supplemental ranges: <140 mg/dL before meals <180 mg/dL all other times of the day Specimen Anatomical Collection Method Collection Time Receive d Time (Source) Location / / Volume Laterality Blood specimen 07/06/2017 12:05 7 (specimen) PM EST 12:05 PM EST Daphne Shahid MD POINT OF CARE TEST ORDERABLE S Performing Organization Address City/[facility]/ZIP Code Phon e Number [address] EKG 12 Lead (07/06/2017 12:00 PM EST) Component Value Ref Range Test Analysis Performed Pathologis t Method Time At Signature Ventricular rate 91 BPM MUSE SYSTEM Atrial Rate 91 BPM MUSE SYSTEM P-R Interval 140 ms MUSE SYSTEM QRS Duration 94 ms MUSE SYSTEM Q-T Interval 394 ms MUSE SYSTEM QTC Calculated 484 ms MUSE SYSTEM (Bezet) Calculated P [place] 36 degrees MUSE SYSTEM Calculated R [place] -19 degrees MUSE SYSTEM Calculated T [place] 104 degrees MUSE SYSTEM INTERPRETATION Normal sinus rhythm MUSE SYSTEM 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) ST & T wave abnormality, consider lateral ischemia Abnormal ECG When compared with ECG of 05-JUL-2017 20:39, No significant change was found Confirmed by MD Luci, Taurus Braun ([id number]) on 07/06/2017 5:07:33 PM Specimen Anatomical Collection Method Collection Time Receive d Time (Source) Location / / Volume Laterality 07/06/2017 12:00 07/06/2017 5:07 PM EST PM EST Daphne Shahid MD ECG ORDERABLES Performing Organization Address City/[facility]/ZIP Code Phon e Number MUSE SYSTEM ABORH Recheck Status (07/06/2017 12:00 PM EST) Patholo gist Method Time Signature ABORH Type Completed [facility] LABORATORY Specimen Anatomical Collection Method Collection Time Receive d Time (Source) Location / / Volume Laterality Blood specimen 07/06/2017 12:00 7 (specimen) PM EST 12:24 PM EST Resulting Agency Comment Spec In Lab Daphne Shahid MD BLOOD BANK ORDERABLES Performing Organization Address City/[facility]/[place] [address] Antibody screen (07/06/2017 12:00 PM EST) Patholo gist Method Time Signature Ab Screen Negative [facility] LABORATORY Expires at 07/09/2017 [facility] [id number] on: [facility] Specimen Anatomical Collection Method Collection Time Receive d Time (Source) Location / / Volume Laterality Blood specimen 07/06/2017 12:00 7 (specimen) PM EST 12:24 PM EST Resulting Agency Comment Spec In Lab Daphne Shahid MD BLOOD BANK ORDERABLES Performing Organization Address City/[facility]/ZIP Code Phon e Number [address] ABO/Rh Typing (07/06/2017 12:00 PM EST) P athologist Signature ABORh Type O Pos [facility] Specimen Anatomical Collection Method Collection Time Receive d Time (Source) Location / / Volume Laterality Blood specimen 07/06/2017 12:00 7 (specimen) PM EST 12:24 PM EST Resulting Agency Comment Spec In Lab Daphne Shahid MD BLOOD BANK ORDERABLES Performing Organization Address City/[facility]/[place] [address] Prothrombin Time (07/06/2017 11:24 AM EST) P athologist Signature PT 13.3 11.8 - 14.0 [facility] LABORATORY INR 1.0 0.9 - 1.1 [facility] [...] Shahid MD HEMATOLOGY ORDERABLES Performing Organization Address City/[facility]/ZIP Code Phon e Number [address] (ABNORMAL) APTT (07/06/2017 11:24 AM EST) P athologist Signature PTT 52 (H) 25 - 35 sec [facility] Comment: The recommended therapeutic range for fu ll dose, unfractionated heparin at [facility] is 80 ? 114 seconds. [...] Shahid MD HEMATOLOGY ORDERABLES Performing Organization Address City/[facility]/[place] [address] POCT Glucose (07/06/2017 11:02 AM EST) athologist Signature POC Glucose 187 65 - 199 [facility] mg/dL [facility] Comment: Supplemental ranges: <140 mg/dL before meals <180 mg/dL all other times of the day Specimen Anatomical Collection Method Collection Time Receive d Time (Source) Location / / Volume Laterality Blood specimen 07/06/2017 11:02 7 (specimen) AM EST 11:02 AM EST Daphne Shahid MD POINT OF CARE TEST ORDERABLE S Performing Organization Address City/[facility]/[place] [address] POCT Glucose (07/06/2017 10:18 AM EST) P athologist Signature POC Glucose 193 65 - 199 [place] [facility] mg/dL [facility] Comment: Supplemental ranges: <140 mg/dL before meals <180 mg/dL all other times of the day Specimen Anatomical Collection Method Collection Time Receive d Time (Source) Location / / Volume Laterality Blood specimen 07/06/2017 10:18 7 (specimen) AM EST 10:18 AM EST Daphne Shahid MD POINT OF CARE TEST ORDERABLE S Performing Organization Address City/State/[place] [address] POCT Glucose (07/06/2017 9:25 AM EST) athologist N42 POC Glucose 182 65 - 199 [facility] Comment: Supplemental ranges: <140 mg/dL before meals <180 mg/dL all other times of the day Specimen Anatomical Collection Method Collection Time Receive d Time (Source) Location / / Volume Laterality Blood specimen 07/06/2017 9:25 AM 017 9:25 (specimen) EST AM EST Daphne Shahid MD POINT OF CARE TEST ORDERABLE S Performing Organization Address City/State/[place] [address] (ABNORMAL) Cardiac Enzymes (LEB/CGP) (07/06/2017 8:10 AM EST) [facility] N42 Troponin-T 2.26 (H) 0.00 - [facility] ng/mL [facility] Comment: The 99th percentile for [...] additional sample may be indicated. Reference: [facility] Definition of Myocardial Infarction. Journal of the [place] [employer] 2012;60:1581-98 CK, Total 124 0 - 200 unit/L [facility] Specimen Anatomical Collection Method Collection Time Receive d Time (Source) Location / / Volume Laterality Blood specimen 07/06/2017 8:10 AM 017 8:23 (specimen) EST AM EST Resulting Agency Comment Spec In Lab Daphne Shahid MD CHEMISTRY ORDERABLES Performing Organization Address City/[facility]/[place] [address] Magnesium (07/06/2017 8:10 AM EST) P athologist Signature Magnesium 0.84 0.69 - 1.07 [facility] mmol/L [facility] Specimen Anatomical Collection Method Collection Time Receive d Time (Source) Location / / Volume Laterality Blood specimen 07/06/2017 8:10 AM 017 8:21 (specimen) EST AM EST Resulting Agency Comment Spec In Lab Daphne Shahid MD CHEMISTRY ORDERABLES Performing Organization Address City/[facility]/ZIP [facility] [place] [address] (ABNORMAL) Basic Metabolic Panel (non-fasting) (07/06/2017 8:10 AM EST) P athologist Signature Glucose Lvl 199 65 - 199 [facility] mg/dL [facility] Comment: Diabetes: >=200 mg/dL plus symp toms BUN 16 10 - 20 mg/dL [facility] Creatinine 1.04 0.80 - 1.50 [...] or in patients with acute kidney failure. [email or web address]/DHnkdep [email or web address]/DHnkf Specimen Anatomical Collection Method Collection Time Receive d Time (Source) Location / / Volume Laterality Blood specimen 07/06/2017 8:10 AM 017 8:21 (specimen) EST AM EST Resulting Agency Comment Spec In Lab Daphne Shahid MD CHEMISTRY ORDERABLES Performing Organization Address City/[facility]/ZIP Code [place] [address] POCT Glucose (07/06/2017 7:34 AM EST) P athologist Signature POC Glucose 198 65 - 199 [facility] mg/dL [facility] Comment: Supplemental ranges: <140 mg/dL before meals <180 mg/dL all other times of the day Specimen Anatomical Collection Method Collection Time Receive d Time (Source) Location / / Volume Laterality Blood specimen 07/06/2017 7:34 AM 017 7:34 (specimen) EST AM EST Daphne Shahid MD POINT OF CARE TEST ORDERABLE S Performing Organization Address City/[facility]/ZIP [place] [address] POCT Glucose (07/06/2017 7:03 AM EST) P athologist Signature POC Glucose 181 65 - 199 [place] mg/dL [facility] Comment: Supplemental [...] Code Phon e Number [facility] [address] XR Chest PA or [...] Glucose 172 65 - 199 [facility] mg/dL [facility] Comment: Supplemental ranges: <140 mg/dL before meals <180 mg/dL all other times of the day Specimen Anatomical Collection Method Collection Time Receive d Time (Source) Location / / Volume Laterality Blood specimen 07/06/2017 6:21 AM 017 6:21 (specimen) EST AM EST Daphne Shahid MD POINT OF CARE TEST ORDERABLE S Performing Organization Address City/State/[place] [address] POCT Glucose (07/06/2017 5:08 AM EST) athologist Signature POC Glucose 154 65 - 199 [facility] Comment: Supplemental ranges: <140 mg/dL before meals <180 mg/dL all other times of the day Specimen Anatomical Collection Method Collection Time Receive d Time (Source) Location / / Volume Laterality Blood specimen 07/06/2017 5:08 AM 017 5:08 (specimen) EST AM EST Daphne Shahid MD POINT OF CARE TEST ORDERABLE S Performing Organization Address City/State/[place] [address] POCT Glucose (07/06/2017 4:05 AM EST) athologist Signature POC Glucose 142 65 - 199 [facility] Comment: Supplemental ranges: <140 mg/dL before meals <180 mg/dL all other times of the day Specimen Anatomical Collection Method Collection Time Receive d Time (Source) Location / / Volume Laterality Blood specimen 07/06/2017 4:05 AM 017 4:05 (specimen) EST AM EST Daphne Shahid MD POINT OF CARE TEST ORDERABLE S Performing Organization Address City/State/ZIP Code Phon e Number [address] POCT Glucose (07/06/2017 3:00 AM EST) athologist Signature POC Glucose 116 65 - 199 [facility] mg/dL [facility] Comment: Supplemental ranges: <140 mg/dL before meals <180 mg/dL all other times of the day Specimen Anatomical Collection Method Collection Time Receive d Time (Source) Location / / Volume Laterality Blood specimen 07/06/2017 3:00 AM 017 3:00 (specimen) EST AM EST Daphne Shahid MD POINT OF CARE TEST ORDERABLE S Performing Organization Address City/[facility]/ZIP Code Phon e Number [address] Potassium (07/06/2017 2:20 AM EST) athologist [facility] Potassium 3.9 3.5 - 5.0 [facility] mmol/L [facility] Comment: Please note: ??Patients with [...] Shahid MD CHEMISTRY ORDERABLES Performing Organization Address City/[facility]/ZIP Code Phon e Number [address] Differential, Automated (07/06/2017 2:20 AM EST) athologist Signature Neutrophils % 72.9 % [facility] Neutr Abs (ANC) 5.53 1.70 - [facility] 6.10 [facility] x10(3)/[facility] LABORATORY Lymphocytes % 16.4 % [facility] Lymphocytes Abs 1.2 0.9 - 3.2 [facility] x10(3)/[facility] LABORATORY Monocytes % 9.4 % [facility] Monocyte Abs 0.7 0.3 - 0.9 [facility] x10(3)/[facility] LABORATORY Eosinophils % 0.5 % [facility] Eosinophils Abs 0.0 0.0 - 0.4 [facility] x10(3)/[facility] LABORATORY Basophils % 0.4 % [facility] Basophils Abs 0.0 0.0 - 0.1 [facility] x10(3)/[facility] LABORATORY Immature Gran [...] - 0.04 x10(3)/[facility] LABORATORY Specimen Anatomical Collection Method Collection Time Receive d Time (Source) Location / / Volume Laterality Blood specimen 07/06/2017 2:20 AM 017 2:33 (specimen) EST AM EST Resulting Agency Comment Spec In Lab Daphne Shahid MD HEMATOLOGY ORDERABLES Performing Organization Address City/State/ZIP [place] [address] (ABNORMAL) Hemogram (07/06/2017 2:20 AM EST) Analysis Performed At Patho logist Time Signature WBC 7.6 4.0 - 9.5 [facility] x10(3)/[facility] LABORATORY RBC 4.52 (L) 4.58 - [facility] 5.54 [place] [facility] x10(6)/[facility] LABORATORY Hemoglobin 13.4 (L) 13.7 - [place] [facility] 16.5 gm/dL [facility] LABORATORY Hematocrit 39.7 (L) 40.5 - [facility] 48.5 % [facility] MCV 87.8 82.9 - [facility] 93.1 [facility] LABORATORY MCH 29.6 27.5 - [place] [facility] 32.1 pg [facility] LABORATORY MCHC 33.8 32.0 - [place] SU 35.7 gm/dL [facility] LABORATORY Platelets 189 145 - 357 [facility] x10(3)/[facility] LABORATORY RDWSD 45.6 (H) 36.0 - [facility] 45.0 [facility] LABORATORY RDWCV 14.3 (H) 11.4 - [facility] 13.8 % [facility] LAB[facility]ATORY MPV 9.1 7.6 - 12.9 [facility] LABORATORY nRBC % Auto 0.0 % [facility] LABORATORY nRBC Abs Auto 0.000 0.000 - [facility] 0.000 [facility] x10(3)/[facility] LABORATORY Specimen Anatomical Collection Method Collection Time Receive d Time (Source) Location / / Volume Laterality Blood specimen 07/06/2017 2:20 AM 017 2:33 (specimen) EST AM EST Resulting Agency Comment Spec In Lab Daphne Shahid MD HEMATOLOGY ORDERABLES Performing Organization Address City/State/ZIP [place] [address] (ABNORMAL) APTT (07/06/2017 2:20 AM EST) P athologist Signature PTT 52 (H) 25 - 35 sec [facility] LABORATORY Comment: The recommended therapeutic range for fu ll dose, unfractionated heparin at [facility] is 80 ? 114 seconds. [...] Address City/State/ZIP Code Phon e Number [address] POCT Glucose (07/06/2017 2:20 AM EST) athologist Signature POC Glucose 115 65 - 199 [facility] mg[facility]dL [facility] LAB[facility] Comment: Supplemental ranges: <140 mg/dL before meals <180 mg/dL all other times of the day Specimen Anatomical Collection Method Collection Time Receive d Time (Source) Location / / Volume Laterality Blood specimen 07/06/2017 2:20 AM 017 2:20 (specimen) EST AM EST Daphne Shahid MD POINT OF CARE TEST ORDERABLE S Performing Organization Address City/[facility]/[place] [address] (ABNORMAL) Cardiac Enzymes (LEB/CGP) (07/06/2017 2:20 AM EST) athologist Signature Troponin-T 2.13 (H) 0.00 - [place] 0.00 ng/mL [facility] LABORATORY Comment: The 99th percentile for [...] additional sample may be indicated. Reference: [facility] Definition of Myocardial Infarction. Journal of the [place] [employer] 2012;60:1581-98 CK, Total 129 0 - 200 unit/L [facility] LABORATORY Specimen Anatomical Collection Method Collection Time Receive d Time (Source) Location / / Volume Laterality Blood specimen 07/06/2017 2:20 AM 017 2:33 (specimen) EST AM EST Resulting Agency Comment Spec In Lab Daphne Shahid MD CHEMISTRY ORDERABLES Performing Organization Address City/State/ZIP [place] [address] (ABNORMAL) Hemoglobin A1c (07/06/2017 [...] into estimated average glucose values. ??Diabetes Care 2008:31(8):8872-4620. Specimen Anatomical Collection Method Collection Time Receive d Time (Source) Location / / Volume Laterality Blood specimen 07/06/2017 2:20 AM 017 2:34 (specimen) EST AM EST Resulting Agency Comment Spec In Lab Daphne Shahid MD CHEMISTRY ORDERABLES Performing Organization Address City/State/ZIP [place] [address] (ABNORMAL) Lipid Panel (07/06/2017 2:20 AM EST) [facility] Method Time Signature Chol, Total 150 <=239 [place] mg/dL [facility] LABORATORY Triglycerides 129 <=199 [facility] mg/dL [facility] LABORATORY HDL 32 (L) >=40 [facility] mg/dL [facility] LABORATORY LDL Cholesterol 92 <=190 [facility] mg/dL [facility] LABORATORY Chol/HDL Ratio 4.7 ratio [facility] LABORATORY Lipid See Note [place] Interpretation [facility] LABORATORY Comment: Lipid management should be guided by a p atient? s ASCVD risk, goals and preferences. ACC/AHA Guidelines recommend high intens ity statin if clinical ASCVD or LDL greater than or equal to 190 mg/dL. http://TheraCoaturl.com/DLH-VAL-Tuztmggao Adults aged 40-75 with LDL 70-189 mg/dL should have their 10 year ASCVD risk estimated with the ACC/AHA ASCVD risk es timator http://tools.acc.org/ULEMZ-Hlsj-Tlfwdhku r/ Statin should be discussed if risk [...] Address City/State/ZIP Code Phon e Number [address] POCT Glucose (07/06/2017 1:09 AM EST) athologist Signature POC Glucose 121 65 - 199 [facility] mg/dL [facility] Comment: Supplemental ranges: <140 mg/dL before meals <180 mg/dL all other times of the day Specimen Anatomical Collection Method Collection Time Receive d Time (Source) Location / / Volume Laterality Blood specimen 07/06/2017 1:09 AM 017 1:09 (specimen) EST AM EST Daphne Shahid MD POINT OF CARE TEST ORDERABLE S Performing Organization Address City/[facility]/[place] [address] POCT Glucose (07/06/2017 12:06 AM EST) athologist Signature POC Glucose 147 65 - 199 [facility] mg/dL [facility] LAB[facility] Comment: Supplemental ranges: <140 mg/dL before meals <180 mg/dL all other times of the day Specimen Anatomical Collection Method Collection Time Receive d Time (Source) Location / / Volume Laterality Blood specimen 07/06/2017 12:06 7 (specimen) AM EST 12:06 AM EST Daphne Shahid MD POINT OF CARE TEST ORDERABLE S Performing Organization Address City/State/[place] [address] (ABNORMAL) POCT Glucose (07/05/2017 10:56 PM EST) athologist Signature POC Glucose 200 (H) 65 - 199 [facility] mg/dL [facility] LAB[facility] Comment: Supplemental ranges: <140 mg/dL before meals <180 mg/dL all other times of the day Specimen Anatomical Collection Method Collection Time Receive d Time (Source) Location / / Volume Laterality Blood specimen 07/05/2017 10:56 7 (specimen) PM EST 10:56 PM EST Daphne Shahid MD POINT OF CARE TEST ORDERABLE S Performing Organization Address City/State/[place] [address] (ABNORMAL) POCT Glucose (07/05/2017 10:05 PM EST) athologist Signature POC Glucose 225 (H) 65 - 199 [facility] mg/dL [facility] Comment: Supplemental ranges: <140 mg/dL before meals <180 mg/dL all other times of the day Specimen Anatomical Collection Method Collection Time Receive d Time (Source) Location / / Volume Laterality Blood specimen 07/05/2017 10:05 7 (specimen) PM EST 10:05 PM EST Daphne Shahid MD POINT OF CARE TEST ORDERABLE S Performing Organization Address City/State/[place] [address] (ABNORMAL) POCT Glucose (07/05/2017 9:02 PM EST) athologist Signature POC Glucose 301 (H) 65 - 199 [place] mg/dL [facility] LABORATORY Comment: Supplemental [...] Address City/State/[place] [address] XR Chest PA or [...] ms MUSE SYSTEM (Bezet) Calculated P [place] 50 degrees MUSE SYSTEM Calculated R [place] -28 degrees MUSE SYSTEM Calculated T [place] 90 degrees MUSE SYSTEM INTERPRETATION Sinus tachycardia [...] (ABNORMAL) Differential, Automated (07/05/2017 8:20 PM EST) [facility] gist Method Time Signature Neutrophils % 88.4 % [facility] LABORATORY Neutr Abs (ANC) 9.08 (H) 1.70 - [facility] 6.10 [facility] x10(3)/[facility] LABORATORY Lymphocytes % 7.0 % [facility] LABORATORY Lymphocytes Abs 0.7 (L) 0.9 - 3.2 [facility] x10(3)/[facility] LABORATORY Monocytes % 3.7 % [facility] LABORATORY Monocyte Abs 0.4 0.3 - 0.9 [facility] x10(3)/[facility] LABORATORY Eosinophils % 0.1 % [facility] LABORATORY Eosinophils Abs 0.0 0.0 - 0.4 [facility] x10(3)/[facility] LABORATORY Basophils % 0.2 % [facility] LABORATORY Basophils Abs 0.0 0.0 - 0.1 [facility] x10(3)/[facility] LABORATORY Immature Gran [...] Gran Abs 0.06 (H) 0.00 - 0.04 x10(3)/[facility] LABORATORY Specimen Anatomical Collection Method Collection Time Receive d Time (Source) Location / / Volume Laterality Blood specimen 07/05/2017 8:20 PM 017 8:27 (specimen) EST PM EST Resulting Agency Comment Spec In Lab Daphne Shahid MD HEMATOLOGY ORDERABLES Performing Organization Address City/State/ZIP [place] [address] (ABNORMAL) Hemogram (07/05/2017 8:20 PM EST) Analysis Performed At Patho logist Time Signature WBC 10.3 (H) 4.0 - 9.5 [facility] x[facility](3[facility] LABORATORY RBC 4.64 4.58 - [place] 5.54 [facility] x10(6)/[facility] LABORATORY Hemoglobin 14.1 13.7 - [facility] 16.5 gm/dL [facility]ORAT[facility] Hematocrit 40.8 40.5 - [facility] 48.5 % [facility] MCV 87.9 82.9 - [facility] SU 93.1 [facility] LABORATORY MCH 30.4 27.5 - [place] 32.1 pg [facility]ORAT[facility] MCHC 34.6 32.0 - [facility] SU 35.7 gm/dL [facility]OR[facility] Platelets 204 145 - 357 [facility] x10(3)/[facility] LABORATORY RDWSD 46.1 (H) 36.0 - [facility] 45.0 [facility] LABORATORY RDWCV 14.5 (H) 11.4 - [facility] SU 13.8 % [facility] LABORAT[facility] MPV 9.7 7.6 - 12.9 [facility] nRBC % Auto 0.0 % [facility] LABORATORY nRBC Abs Auto 0.000 0.000 - [facility] SU 0.000 [facility] x10(3)/[facility] LABORATORY Specimen Anatomical Collection Method Collection Time Receive d Time (Source) Location / / Volume Laterality Blood specimen 07/05/2017 8:20 PM 017 8:27 (specimen) EST PM EST Resulting Agency Comment Spec In Lab Daphne Shahid MD HEMATOLOGY ORDERABLES Performing Organization Address City/State/ZIP Code Phon e Number [place] [address] APTT (07/05/2017 8:20 PM EST) athologist Signature PTT 32 25 - 35 sec [facility] LABORATORY Comment: The recommended therapeutic range for fu ll dose, unfractionated heparin at [facility] is 80 ? 114 seconds. [...] Address City/State/[place] [address] (ABNORMAL) Cardiac Enzymes (LEB/CGP) (07/05/2017 8:20 PM EST) athologist Signature Troponin-T 2.11 (H) 0.00 - [facility] 0.00 ng/mL [facility]OR[facility]ORY Comment: The 99th percentile for [...] additional sample may be indicated. Reference: [facility] Definition of Myocardial Infarction. Journal of the [place] College of Cardiology 2012;60:1581-98 CK, Total 149 0 - 200 unit/L [facility] LABORATORY Specimen Anatomical Collection Method Collection Time Receive d Time (Source) Location / / Volume Laterality Blood specimen 07/05/2017 8:20 PM 017 8:27 (specimen) EST PM EST Resulting Agency Comment Spec In Lab Daphne Shahid MD CHEMISTRY ORDERABLES Performing Organization Address City/[facility]/ZIP Code Phon e Number [address] (ABNORMAL) Magnesium (07/05/2017 8:20 PM EST) P athologist Signature Magnesium 0.68 (L) 0.69 - 1.07 [facility] mmol/L [facility] LABORATORY Specimen Anatomical Collection Method Collection Time Receive d Time (Source) Location / / Volume Laterality Blood specimen 07/05/2017 8:20 PM 017 8:27 (specimen) EST PM EST Resulting Agency Comment Spec In Lab Daphne Shahid MD CHEMISTRY ORDERABLES Performing Organization Address City/[facility]/[place] [address] (ABNORMAL) Basic Metabolic Panel (non-fasting) (07/05/2017 8:20 PM EST) P athologist Signature Glucose Lvl 321 (H) 65 - 199 [facility] mg/dL [facility] LABORATORY Comment: Diabetes: >=200 mg/dL plus symp toms BUN 20 10 - 20 mg/dL [facility] LABORATORY Creatinine 1.12 0.80 - 1.50 mg/dL [facility] LABORATORY Sodium 139 135 - 145 mmol/L [facility] LABORATORY Potassium 3.8 3.5 - 5.0 mmol/L [facility] [...] or in patients with acute kidney failure. http://[employer]/DHnkdep http://[employer]/DHMCnkf Specimen Anatomical Collection Method Collection Time Receive d Time (Source) Location / / Volume Laterality Blood specimen 07/05/2017 8:20 PM 017 8:27 (specimen) EST PM EST Resulting Agency Comment Spec In Lab Daphne Shahid MD CHEMISTRY ORDERABLES Performing Organization Address City/State/[place] [address] (ABNORMAL) POCT Glucose (07/05/2017 7:32 PM EST) P athologist Signature POC Glucose 296 (H) 65 - 199 [facility] mg/dL [facility] Comment: Supplemental ranges: <140 mg/dL before meals <180 mg/dL all other times of the day Specimen Anatomical Collection Method Collection Time Receive d Time (Source) Location / / Volume Laterality Blood specimen 07/05/2017 7:32 PM 017 7:32 (specimen) EST PM EST Daphne Shahid MD POINT OF CARE TEST ORDERABLE S Performing Organization Address City/State/[place] [address] CARDIAC CATHETERIZATION (07/05/2017 6:47 PM EST) Anatomical Region Laterality Modality Other Specimen (Source) Anatomical Location Collection Method / Collectio n Time Received Time / Laterality Volume Narrative 07/05/2017 7:27 PM EST ?[facility] ? Cardiac Cathete rization/Intervention Report ? Patient Name: Gregory Hoang ? Procedure Date: 07/05/2017 ? A #: [id number] ? Primary Physician: Clarisa, Jet T ? Case #: [id number] ? File Name: [id number] ? Catheterization Order Number: [id number] ? [facility] ? Final Report [place], [place] ? Patient Name: ? Gregory Natalya ?ID#: ?[id number] ? : ?1945 ? Procedure Date: ? [...] presented with: non -STEMI (w/i 7 days). [place] ?[employer] angina c lass was IV. [...] angio graphy and IABP insertion in lab nurse. ? Jet Mckenna M.D. ? Electronically Signed by: Jet bunch M.D. ? Report Finalized: 07/05/2017 ??19:23 ? Report Last Ammended: 10/26/2017 ??10:29 ? Procedure Note Jet Mckenna MD - 10/26/2017Formatt ing of this note might be different from the original. [facility] Cardiac Catheterization/Intervention Re port Patient Name: Gregory Hoang Procedure Date: 07/05/2017 A #: [id number] Primary Physician: Jet Mckenna Case #: [id number] File Name: [id number] Catheterization Order Number: [id number] [facility] Bilingual Social Worker [facility] Final Report [place], [place] Patient Name: Gregory Hoang ID#: [id number] : 1945 Procedure Date: July 05, [...] presented with: non-STEMI ( w/i 7 days). [place] [employer] angina class was IV. No [...] angiograph y and IABP insertion in lab nurse. Jet Mckenna M.D. Electronically Signed by: Jet [...] Mccollum ? (Age): 1945(72y) Med Rec#: ? [id number] ?Sex: ?M ? Site Loc: ? [facility] ?Ht / Wt: ??173(cm)/86(kg) Pt. Loc: ?CCU ? BSA: ?2 Study Date: ?? 07/05/2017 ?Pt. Type: Inpatient Tape: ? Referring: Daphne Shahid ([id number]) Referring: MANDA ALCANTAR Reading: Blade Preston ([id number]) Link Assembler: Dayami Paula BA, [facility] Diagnosis: [...] E-wave Vmax ?0.8 ?m/sec ? MV deceleration [id number] ?msec ? MV A-wave Vmax ?0.8 ?m/sec [...] ? Mid-Inferior ?Akinetic ? Mid-Inferoseptal ?Hypokinetic ? [facility]-Septal ? Akinetic ? [facility]-Anterior ? Hypokinetic ? [facility]-Lateral ?Hypokinetic ? [facility]-Inferior ? Akinetic ? [facility]-Tip ?Akinetic ? This report has been electronically sign ed by: _ Blade Preston MD ? 07/06/2017 08 :53:15 Images reviewed and interpretation [facility] Cardiac Ultrasound Laboratory Procedure Note Blade Preston MD - 07/06/2017Formatt ing of this note might be different from the original. Procedure: Transthoracic Echocardiogram Patient: NATALYA MCBRIDE(Age): [birth year]72y) Med Rec#: [id number] Sex: M Site Loc: [facility] Ht / Wt: 173(cm)/86(kg) Pt. Loc: CCU BSA: 2 Study Date: 07/05/2017 Pt. Type: Inpatie nt Tape: Referring: Daphne Shahid ([id number]) Referring: MANDA ALCANTAR Reading: Blade Preston ([id number]) Link Assembler: Dayami Paula BA, [facility] Diagnosis: [...] MV E-wave Vmax 0.8 m/sec MV deceleration [id number] msec MV A-wave Vmax 0.8 m/sec MV [...] Hypokinetic Mid-Posterolateral Hypokinetic Mid-Inferior Akinetic Mid-Inferoseptal Hypokinetic [place]-Septal Akinetic [facility]-Anterior Hypokinetic [place]-Lateral Hypokinetic [place]-Inferior Akinetic [facility]-Tip Akinetic This report has been electronically sign ed by: _ Blade Preston MD 07/06/2017 08:53:15 Images reviewed and interpretation ver ied [facility] Cardiac Ultrasound [facility] Daphne Shahid MD ECHO ORDERABLES Differential, Automated (07/05/2017 4:55 PM EST) athologist Signature Neutrophils % 77.0 % [facility] LABORATORY Neutr Abs (ANC) 5.26 1.70 - [facility] 6.10 [facility] x10(3)/[facility] LABORATORY Lymphocytes % 13.3 % [facility] LABORATORY Lymphocytes Abs 0.9 0.9 - 3.2 [facility] x10(3)/[facility] LABORATORY Monocytes % 8.2 % [facility] LABORATORY Monocyte Abs 0.6 0.3 - 0.9 [facility] x10(3)/[facility] LABORATORY Eosinophils % 0.7 % [facility] LABORATORY Eosinophils Abs 0.0 0.0 - 0.4 [facility] x10(3)/[facility] LABORATORY Basophils % 0.4 % [facility] LABORATORY Basophils Abs 0.0 0.0 - 0.1 [facility] x10(3)/[facility] LABORATORY Immature Gran [...] - 0.04 x10(3)/[facility] LABORATORY Specimen Anatomical Collection Method Collection Time Receive d Time (Source) Location / / Volume Laterality Blood specimen 07/05/2017 4:55 PM 017 5:24 (specimen) EST PM EST Resulting Agency Comment Spec In Lab Daphne Shahid MD HEMATOLOGY ORDERABLES Performing Organization Address City/State/ZIP [place] [address] (ABNORMAL) Hemogram (07/05/2017 4:55 PM EST) Analysis Performed At Patho logist Time Signature WBC 6.8 4.0 - 9.5 [facility] x10(3)/[facility] LABORATORY RBC 4.67 4.58 - [facility] 5.54 [facility] x10(6)/[facility] LABORATORY Hemoglobin 14.0 13.7 - [place] [facility] 16.5 gm/dL [facility] LABORAT[facility] Hematocrit 41.0 40.5 - [place] [facility] 48.5 % [facility] MCV 87.8 82.9 - [facility] 93.1 [facility] LABORATORY MCH 30.0 27.5 - [place] [facility] 32.1 pg [facility] MCHC 34.1 32.0 - [place] [facility] 35.7 gm/dL [facility] Platelets 197 145 - 357 [facility] x10(3)/[facility] LABORATORY RDWSD 46.4 (H) 36.0 - [place] [facility] 45.0 [facility] LABORATORY RDWCV 14.5 (H) 11.4 - [place] SU 13.8 % [facility] LABORATORY MPV 9.7 7.6 - 12.9 [facility] LABORATORY nRBC % Auto 0.0 % [facility] LABORATORY nRBC Abs Auto 0.000 0.000 - [place] SU 0.000 [facility] x10(3)/[facility] LABORATORY Specimen Anatomical Collection Method Collection Time Receive d Time (Source) Location / / Volume Laterality Blood specimen 07/05/2017 4:55 PM 017 5:24 (specimen) EST PM EST Resulting Agency Comment Spec In Lab Daphne Shahid MD HEMATOLOGY ORDERABLES Performing Organization Address City/State/ZIP [place] [address] (ABNORMAL) Cardiac Enzymes (LEB/CGP) (07/05/2017 4:55 PM EST) P athologist Signature Troponin-T 1.69 (H) 0.00 - [place] 0.00 ng/mL [facility] Comment: The 99th percentile for [...] additional sample may be indicated. Reference: [facility] Definition of Myocardial Infarction. Journal of the [place] [employer] 2012;60:1581-98 CK, Total 191 0 - 200 unit/L [facility] LABORATORY Specimen Anatomical Collection Method Collection Time Receive d Time (Source) Location / / Volume Laterality Blood specimen 07/05/2017 4:55 PM 017 5:56 (specimen) EST PM EST Resulting Agency Comment Spec In Lab Daphne Shahid MD CHEMISTRY ORDERABLES Performing Organization Address City/State/ZIP Code Phon e Number [address] (ABNORMAL) pro-Brain Natriuretic Peptide (07/05/2017 4:55 PM EST) P athologist Signature ProBNP 1,598 (H) <=125 [facility] pg/mL [facility] Specimen Anatomical Collection Method Collection Time Receive d Time (Source) Location / / Volume Laterality Blood specimen 07/05/2017 4:55 PM 017 5:24 (specimen) EST PM EST Resulting Agency Comment Spec In Lab Daphne Shahid MD CHEMISTRY ORDERABLES Performing Organization Address City/State/ZIP Code Phon e Number [address] Magnesium (07/05/2017 4:55 PM EST) P athologist Signature Magnesium 0.78 0.69 - 1.07 [facility] mmol/L [facility] Specimen Anatomical Collection Method Collection Time Receive d Time (Source) Location / / Volume Laterality Blood specimen 07/05/2017 4:55 PM 017 5:24 (specimen) EST PM EST Resulting Agency Comment Spec In Lab Daphne Shahid MD CHEMISTRY ORDERABLES Performing Organization Address City/State/ZIP [place] [address] (ABNORMAL) Basic Metabolic Panel (non-fasting) (07/05/2017 4:55 PM EST) P athologist Signature Glucose Lvl 230 (H) 65 - 199 [facility] mg/dL [facility] Comment: Diabetes: >=200 mg/dL plus symp toms BUN 19 10 - 20 mg/dL [facility] LABORATORY Creatinine 1.04 0.80 - 1.50 [...] or in patients with acute kidney failure. http://[employer]DHnkdep http://[employer]/DHMCnkf Specimen Anatomical Collection Method Collection Time Receive d Time (Source) Location / / Volume Laterality Blood specimen 07/05/2017 4:55 PM 017 5:24 (specimen) EST PM EST Resulting Agency Comment Spec In Lab Daphne Shahid MD CHEMISTRY ORDERABLES Performing Organization Address City/[facility]/[place] [address] (ABNORMAL) APTT (07/05/2017 4:55 PM EST) P athologist Signature PTT 41 (H) 25 - 35 sec [facility] LABORATORY Comment: The recommended therapeutic range for fu ll dose, unfractionated heparin at [facility] is 80 ? 114 seconds. [...] Shahid MD HEMATOLOGY ORDERABLES Performing Organization Address City/[facility]/[place] [address] (ABNORMAL) POCT Glucose (07/05/2017 4:53 PM EST) athologist Signature POC Glucose 208 (H) 65 - 199 [facility] mg/dL [facility] LABORATORY Comment: Supplemental ranges: <140 mg/dL before meals <180 mg/dL all other times of the day Specimen Anatomical Collection Method Collection Time Receive d Time (Source) Location / / Volume Laterality Blood specimen 07/05/2017 4:53 PM 017 4:53 (specimen) EST PM EST Daphne Shahid MD POINT OF CARE TEST ORDERABLE S Performing Organization Address City/[facility]/[place] [address] EKG 12 Lead (07/05/2017 4:32 PM EST) Component Value Ref Range Test Analysis Performed Pathologis t Method Time At Signature Ventricular rate 97 BPM MUSE SYSTEM Atrial Rate 97 BPM MUSE SYSTEM P-R Interval 148 ms MUSE SYSTEM QRS Duration 96 ms MUSE SYSTEM Q-T Interval 364 ms MUSE SYSTEM QTC Calculated 462 ms MUSE SYSTEM (Bezet) Calculated P [place] 48 degrees MUSE SYSTEM Calculated R [place] -33 degrees MUSE SYSTEM Calculated T [place] 98 degrees MUSE SYSTEM INTERPRETATION Normal sinus [...] Coronary atherosclerosis of unspecified type of vessel, augustine or graft Cardiomyopathy, ischemic Other specified forms [...] dose on Wed07/07/17 at 2100, Until Discontinued, [place] teeth, Routine Given 07/08/2017 10:06 PM EST [...] or norepinephrine is ineffective. Call pager # [phone] if initiated. Rate/Dose Change 07/08/2017 7:01 PM [...] if phenyleprine and/or vasopressin ineffective.Call pager # [phone] if initiated., Routine Rate/Dose Change 07/09/2017 1:24 [...] 2.0 L/min/M2. Maximum volume 2 L. Call feed house supervisor for additional fluid orders: pager #[phone]. Rate/Dose Verify 07/08/2017 4:00 AM EST 100 [...] - Provider: Ale Rangel, [facility]) 0530 (Gi coyd - Provider: Denice Jacobson, [facility]) 175 mcg, [...] given during assessment)1330 (Not Given - Provider: oMre Luther RN - Reason: Contraindicated - Comment: [...]
Routine documented in this encounter Care Teams Boat Mechanic Relationship Specialty Start Date End Date Lovely Vicente MD PCP - General 04/16/[address] [place] [address] documented as of this encounter
--- OUTSIDE RECORDS SUMMARY | 2022-04-08 08:55 | XMS_ITS | Encounter Summary ---
:1945 [place] [address] Care Team Providers Name Role Phone Lovely Vicente MD Primary Care Provider Reason for Visit Auth/Cert Specialty Diagnoses / Procedures Referred By Contact Refer red To Contact Diagnoses STEMI (ST elevation myocardial infarction) NSTEMI STEMI Procedures CARDIAC CATHETERIZATION NAYE IPI Referral ID Status Reason Start Date Expiration Date Visits Requ ested Visits Authorized [id number] 1 1 Encounter Details Date Type Department Care Team Description 07/07/2017 Anesthesia Event Main Operating Room Yifan Jaime MD [facility] [place] [address] [facility] Ginny Murray MD [facility] DR [place] [address] [facility] [place] [address] Anesthesia Record Procedure Summary Procedure Name [...] 2342 LDA Cath/EP Sheath 07/05/17; 0606; 8 Singaporean 07/05/17 0606 by [id number] by (Fr); Right; Femoral [place], Yane Cook, RN PIV 07/05/17; 1720; median 07/05/17 1720 by 07/11/17 2355 by vein (underside of arm), Prior, Yanet Maza, Angela Mccurdy, left; 18 gauge; removed HOSPITALIST NOCTURNIST PHYSICIAN per policy/procedure; 07/11/17; 2355 Intra-Aortic Balloon 07/05/17; [...] Miller, Carrie L, Type: Cuffed; ETT Size: NEUROLOGY EPILEPSY PHYSICIAN 8 mm; Santiago Blade: 2; Notes: Asleep, [...] Stop Room / Location 07/07/17 1335 1836 [facility] MA[facility] OR Procedure Diagnosis Surgeon Responsible Provider @CABG, USING ARTERIAL GRAFT;SINGLE ARTERIAL GRAFT (WRVU 33.75) (N/A Chest); @CABG, TWO VENOUS GRAFTS & ARTERIAL GRAFT (WRVU 7.93) (N/A Chest); ENDOSCOPIC HARVEST VEIN(S) FOR CABG (WRVU 0.31) (Right Leg) (CAD) Yuan Freitas MD Hartman, Gregg S, MD All Anesthesia Providers: Anesthesiologist: Yifan Perez MD Clinical Nutrition Manager: Ginny Murray MD Most Recent Vitals: 07/08/17 [...] Cardiology Zulma Dolan MD [facility] [place], [place] [address] (Wo rk) 05/28/2022 Laboratory Appointment Lab 05/28/2022 Office Visit Cardiology Zulma Dolan MD [facility] [place] [address] Liz Poole PA [facility] [place] [address] 06/10/2022 Office Visit Dermatology Laura Scherer MD [facility] DR TEJA GR-DERMAT OLOGY [place], [place] [address] (Wo rk) documented as of [...] mg documented in this encounter Care Teams Electrical Maintenance Supervisor Relationship Specialty Start Date End Date Lovely Vicente MD PCP - General 04/16/[address] [place] [address] documented as of this encounter
--- OUTSIDE RECORDS SUMMARY | 2022-04-08 08:55 | XMS_ITS | Encounter Summary ---
:1945 Author Organization [facility] Address [facility] [place] [address] Care Team Providers Name Role Phone Lovely Vicente MD Primary Care Provider Reason for Visit Auth/Cert Specialty Diagnoses / Procedures Referred By Contact Refer red To Contact Diagnoses STEMI (ST elevation myocardial infarction) NSTEMI STEMI Procedures CARDIAC CATHETERIZATION NAYE IPI Referral ID Status Reason Start Date Expiration Date Visits Requ ested Visits Authorized [id number] 1 1 Encounter Details Date Type Department Care Team Description 07/07/2017 Surgery Main Operating Room Yuan Webber, @ CABG, USING ARTERIAL Barbara Ocampo MD GRAFT;SINGLE ARTERIAL [facility] GRAFT (WRVU 33.75) [facility] [address] [place] [address] SURGERY [phone] [place], [place] [address] (Wo rk) Social History Tobacco [...] documented in this encounter Discharge Summaries Martha Tegaue, STATUS CONTROLLER - 07/14/2017 9:38 AM EST Inpatient - Discharge Summary Patient Name: Gregory Hoang Patient Age: 72 y.o. Birthdate: 1945 Language: Albanian Race: White Ethnicity: Not nor Admit Date: 07/05/2017 Discharge Date: 07/14/2017 Attending Physician: Yuan Webebr MD Follow-up Recommendations for Providers: Please continue routine management of cardiovascular risk factors including blood pressure, lipids, glucose, etc. Please note any changes to medications. Patient to follow-up with PCP, Lovely Vicente MD, in 1-2 weeks. An appointment has been made for you on 07/22/2017, , @ 1:20p Patient to follow-up with Licensing Engineer/heart failure team in one week. An appointment will be made for you. You may call [phone] Patient to follow-up with Cardiac Surgery, Dr. Yuan Webber, in ~ 4 weeks with CXR, EKG. Inpatient Provider Contact Information: [facility] Section of Cardiac Surgery [facility] [address] FAX [phone] Discharge Diagnoses (Hospital Problems) Primary Diagnoses: CAD [...] 33.75) performed by Yuan Webber MD at [facility] OR ??? PRO CABG, ARTERY-VEIN, TWO N/A 07/07/2017 @CABG, TWO VENOUS GRAFTS & ARTERIAL GRAFT (WRVU 7.93) performed by Yuan Webber MD at [facility] OR ??? PRO COLONOSCOPY, REMV LESN, SNARE 01/16/2014 COLONOSCOPY, POLYPECTOMY, REMOVAL LESION BY SNARE performed by Nohemi Jaimes MD at [facility] ENDOSCOPY ??? PRO ENDOSCOPY W/VIDEO-ASST VEIN HARVEST, CABG Right 07/07/2017 ENDOSCOPIC HARVEST VEIN(S) FOR CABG (WRVU 0.31) performed by Yuan Webber MD at [facility] OR ??? PRO THYROIDECTOMY 03/28/2013 THYROIDECTOMY, TOTAL OR COMPLETE performed by Manny Mcknight MD at [facility] OR Prior To Admission Medications Prescriptions Prior to Admission Medication Sig Dispense Refill Last Dose ??? levothyroxine (SYNTHROID) 175 mcg Tablet Take 1 tablet by mouth daily. 90 tablet 3 07/05/2017 [id number] ??? ascorbic acid, vitamin C, (VITAMIN C) [...] Hospital Course: Gregory Hoang was admitted to [facility] on 07/05/2017 via the Cardiology Service. During his hospital course, he was taken emergently to the laboratory assistant for an ongoing STEMI. An [...] not take or discontinue any prescription or qdqz-rbi-tlcvapr medications without asking your doctor or pharmacist [...] Yuan Webber and/or the Cardiac Surgery Physician Environmental Services Worker Team may be reached at . Weight: [...] Dr. Yuan Webber. You may use a [place] Track or treadmill but avoid any pulling [...] with the surgeon. Do not ride motorcycles, [employer]'s tractors or horses. Avoid the use of [...] should resume a low fat, low cholesterol, [place] Heart Association Diet/Diabetic diet. Driving: No driving [...] , @ 1:20p Patient to follow-up with Licensing Engineer/heart failure team in one week. Appointment will be made for you. You may call [phone] Patient to follow-up with Cardiac Surgery, Dr. Yuan Webber, in ~ 4 weeks with CXR, EKG. Cardiac Rehabilitation: Gregory Hoang was seen today regarding participation in the outpatient Phase 2 Cardiac Rehabilitation at [facility]. The patient agrees to a referral to this program. The referral will be sent at discharge and the patient should be contacted by the Program within 1- 2 weeks from discharge. ?? Future Appointments and Orders Future Appointments Provider Department Dept Phone 09/07/2017 3:00 PM LAB, THREE L Lab 3L [facility] [phone] 09/07/2017 4:00 PM Luz Prescott MD Endocrinology at [place] [phone] Future Orders Complete By Expires EKG 12 Lead [EKG1 Custom] 08/14/2017 02/13/2018 Process Instructions: Scheduling Instructions: Questions: Which DH location will this be performed?: [place] Is a rhythm strip needed?: No If EKG Reason is Pre-op Evaluation, indicate diagnosis for surgery.: XR Chest PA & Lateral (Generic) [95332 11951 Custom] 08/14/2017 02/13/2018 Process Instructions: Scheduling Instructions: Questions: Where will study be performed?: [place] [facility] Portable exam?: Reason for exam and clinical history: CABG x 3 Other pertinent information: Stat read required?: Date of injury if applicable: Requested Time: Referral to Cardiac Rehab [[id number] Custom] As directed Process Instructions: If no progress note charted, please enter Clinical details in comments. Scheduling Instructions: Questions: My question or request is: s/p CABG. Cardiac rehab at [facility] Referral to Home Health - at DISCHARGE [SGK9588 CPT(R)] As directed Process Instructions: Scheduling Instructions: Comments: DOCUMENTATION FOR VNA SERVICES (INCLUDING THOSE PATIENTS WITH MEDICARE COVERAGE REQUIRING HOME VNA SERVICES AND/OR HOSPICE SERVICES) PATIENT'S LOCATION: Gregory Hoang [address] [place] [address] [place] [id number] (home) Telephone Information: Film Flat Inspector's Name: self In discussion with the attending physician, it is certified that this patient is under their care and that they, or a Nurse Practitioner, or Physician Environmental Services Worker who is working directly with them, had [...] [facility] ([facility] [place] [employer]-is in [place]) PHONE: [phone] FAX: [phone] RN orders: Cardiopulmonary assessment, incisional assessment, assess vital signs, assessment of rehab progress, medication management and effectiveness, home safety evaluation. Please draw INR if indicated and send result to:Dr Vicente [phone] PT ORDERS: Continue rehab for endurance, gait stability and strength with mobility and transfers. Home safety evaluation. Home exercise program if appropriate. Start of Care Date:24-48 hours after discharge SPECIAL INSTRUCTIONS: For any follow up questions, needs, or issues please call the Cardiac Surgery Office at [phone] FOR MEDICARE ONLY: (please delete this section [...] noted. Questions: Agency name and contact information: [facility] Patient location post discharge: home What services are requested: Registered Nurse Physical Therapy Start date: Responsible MD post discharge contact info: PCP Arrangements for VNA/home care: As above. VN RN OR PCP TO PLEASE REMOVE CHEST TUBE SUTURES ON OR AFTER 07/17/2017 Signed: Martha Teague APRN [facility] Section of Cardiac Surgery [facility] [address] FAX [phone] Date: 07/14/2017 CC: MD Ivania Cr Betsy, PA [address] [place] [phone] documented in this encounter Discharge Instructions Discharge [...] not take or discontinue any prescription or xyqk-noc-qfanxir medications without asking your doctor or pharmacist [...] Yuan Webber and/or the Cardiac Surgery Physician Environmental Services Worker Team may be reached at . ?? [...] Dr. Yuan Webber. You may use a [place] Track or treadmill but avoid any pulling [...] with the surgeon. Do not ride motorcycles, [employer]'s tractors or horses. Avoid the use of [...] should resume a low fat, low cholesterol, [place] Heart Association Diet/Diabetic diet. ?? Driving: No [...] @ 1:20p ?? Patient to follow-up with Licensing Engineer/heart failure team in one week. An appointment has been made for you, you can call [phone] ?? Patient to follow-up with Cardiac Surgery, Dr. Yuan Webber, in ~ 4 weeks with CXR, EKG. ? Cardiac Rehabilitation: Gregory Hoang??was seen today regarding participation in the outpatient Phase 2 Cardiac Rehabilitation at [facility]. ?? The patient agrees to a referral to this program.? The referral will be sent at discharge and the patient should be contacted by the Program within 1- 2 weeks from discharge. ? Future Appointments and Orders Future Appointments Provider Department Dept Phone ?? 09/07/2017 3:00 PM LAB, THREE L Lab 3L [facility] [phone] ?? 09/07/2017 4:00 PM Luz Prescott MD Endocrinology at [place] [phone] Future Orders Complete By Expires ?? EKG 12 Lead [EKG1 Custom] 08/14/2017 02/13/2018 ?? Process Instructions: ? Scheduling Instructions: ? Questions: ? Which location will this be performed?: [place] ?? Is a rhythm strip needed?: No ?? If EKG Reason is Pre-op Evaluation, indicate diagnosis for surgery.: ?? XR Chest PA & Lateral (Generic) [[id number] Custom] 08/14/2017 02/13/2018 ?? Process Instructions: ? Scheduling Instructions: ? Questions: ? Where will study be performed?: [place] [facility] ?? Portable exam?: ?? Reason for exam and clinical history: CABG x 3 ?? Other pertinent information: ?? Stat read required?: ?? Date of injury if applicable: ?? Requested Time: ?? Referral to Cardiac Rehab [BOU120 Custom] As directed ? Process Instructions: ?? If no progress note charted, please enter Clinical details in comments. ?? Scheduling Instructions: ? Questions: ? My question or request is: s/p CABG. Cardiac rehab at [facility] ? Arrangements for VNA/home care: As [...] RN - 07/14/2017 2:34 PM EST The patient/claims representative has been provided a list of Home Health Agencies/DME vendors which serve their preferred geographic area. A letter describing our affiliations was reviewed with them and theywere educated about their right to choose where referrals are placed. Patient requests referral to [facility] [email or web address]. PHONE: [phone] FAX: [phone] Expected date of discharge: 07/14 Referral routed to the Cardiac Rehab Nurse for matching with agency/vendor and to provide [...] [facility] Endocrinology Diabetes Management Pager [phone] 20 minutes of this 35 minute visit was spent with the patient in counseling on diabetes and treatment plan, reviewing all glucose and insulin data as well as relevant laboratory results with the patient, and coordination of care on the inpatient unit including nursing and primary team. Zulma Power RN - 07/14/2017 10:30 AM EST The patient/claims representative has been provided a list of Home Health Agencies/DME vendors which serve their preferred geographic area. A letter describing our affiliations was reviewed with them and theywere educated about their right to choose where referrals are placed. Patient requests referral to : Yasmani Munguia ([facility] [place] [facility]-is in [place]) PHONE: [phone] FAX: [phone]. Expected date of discharge: 07/14/17 Referral routed to the Cardiac Rehab Nurse for matching with agency/vendor and to provide [...] hours. If BG remains greater than 240, qwytea93 units (no more than three times) &??call [...] [facility] Endocrinology Diabetes Management Pager [phone] 15 minutes of this 25 minute visit [...] of infiltration/extravasation Discussed plan of care with CULINARY ASSISTANT and RN. Elevate exrtemity and apply intermittent Warm compresses. Name of MD contacted Dr. Shaw Brown 07/13/2017 @ 0634 Name of RN contacted Ale Rangel RN Name of Pharmacist if consulted NA Name of Plastics MD ( if consulted) NA (Mandatory photo for infiltrations/ extravasations scoring a stage 2 or greater, but recommended forstage 1)( include measuring tape and identifier in the photo) FLOORHAND CARING FOR THIS PATIENT WILL CONTINUE TO [...] measuring tape and identifier in the photo) FLOORHAND CARING FOR THIS PATIENT WILL CONTINUE TO [...] regard to both infiltrates addressed by this field underwriter.All of MrMadiha Hoang's responses were entirely appropriate. Images of infiltrates attached here. L Martha Teague, STATUS CONTROLLER - 07/13/2017 8:01 AM EST Cardiac Surgery Progress Note: ID: [id number] 72 year old male POD#6 s/p CABGx3 [...] discharge. ?? I have met with the patient/claims representative to discuss discharge planning needs. I have provided the [facility], Office of Care Management letter from the Numerical Control Machine Machinist pertaining to rehab referrals. I have also provided a letter describing our affiliations within the [facility] and educated them about their right to choose where referrals are placed. ?? I reviewed the different levels of rehab including SNF, swing, acute and LTAC with the patient/claims representative. ?? The patient/claims representative has been provided a list of facilities within their preferred geographic area. ?? I have requested that the patient/claims representative provide at least three choices for referral. ?? The patient/claims representative have requested referrals to: ?? [facility]. [facility] ?? 2. [facility] ?? 3. More to be entered ?? Expected date of discharge: 07/14 Note routed to Cardiac Rehab Nurse who will communicate referrals to facilities and [...] hours. If BG remains greater than 240, kgxvuv27 units (no more than three times) & [...] hours. If BG remains greater than 240, kaiezq67 units (no more than three times) & call for new basal insulin orders. ??If less than 240 after two hours, give no insulin and resume prior schedule. Will continue to follow Katerin Azul APRN [facility] Endocrinology Diabetes Management Pager [phone] 20 minutes of this 35 minute visit was spent with the patient in counseling on diabetes and treatment plan, reviewing all glucose and insulin data as well as relevant laboratory results with the patient, and coordination of care on the inpatient unit including nursing and primary team. Makayla Stevenson APRN - 07/12/2017 9:52 AM EST Cardiac Surgery Progress Note: ID: [id number] 72 year old male POD#5 s/p CABGx3 [...] 7:18 PM EST Patient arrived from [facility]. VSS. MSI dressing pulled off [...] hours. If BG remains greater than 240, bzydms22 units (no more than three times) & [...] AM EST Cardiac Surgery Progress Note: ID: [id number] 72 year old male POD#4 s/p CABGx3 [...] AM EST Cardiac Surgery Progress Note: ID: [id number] 72 year old male POD#3 s/p CABGx3 [...] Gas) No results found for: PHART, PO2ART, TSS3DJA Assessment/Plan: 72 year old male POD#3 s/p [...] Mami Thao - 07/09/2017 6:29 PM EST Track Superintendent Encounter Note Patient Name: Gregory Hoang : [id number] MR#: [id number] Admit Date: 07/05/2017 4:20 PM Hospital Day 4 days Narrative: Patient was sitting in chair, hugging heart pillow, opened his eyes, nodding to come into room Assessment: Patient was sleepy. Intervention and Outcome: Introduced water control supervisor services and patient reached his hand out in appreciation. Follow-up: Track Superintendent remains available for support. Time in Direct [...] AM EST Cardiac Surgery Progress Note: ID: [id number] 72 year old male POD#2 s/p CABGx3 [...] completed shifts: In: 7977.4 [I.V.:7477.4; Other:500] Out: 6215 [Urine:3000; Other:615] I- 4 L O- 2.7 [...] Attending Surgeon on rounds. Signed: STEPHANIE Iqbal [facility] Section of Cardiac Surgery Date: 07/09/2017 [...] when IABP d/c'ed. Gretchen Carolina, PT Pager [phone] Maddison Cee PA - 07/08/2017 11:27 AM EST Cardiac Surgery Progress Note: ID: [id number] 72 year old male POD#1 s/p CABGx3 [...] Attending Surgeon on rounds. Signed: STEPHANIE Iqbal [facility] Section of Cardiac Surgery Date: 07/08/2017 Philipp, [...] in place in R femoral. No hematoma. VIROLOGIST- Intact Psych- Anxious Skin- Dry, no peripheral [...] intact. IABP in place in R femoral. VIROLOGIST- Intact Psych- Anxious Skin- Dry, no peripheral [...] pending CABG - hold metformin - f/u [facility] ?? #Home Meds - [...] note for details. DAPHNE SHAHID MD Pager [phone] Jet Mckenna MD - 07/05/2017 6:48 PM EST Preliminary Cardiac Catheterization Procedure Note: Procedure(s) performed: Left heart cath, IABP insertion Access: Right BEHAVIORAL HEALTH DIRECTOR-->8fr IABP A time-out was conducted prior to [...] Heparin gtt maintained. Pt transferred to laboratory assistant. documented in this encounter H&P Notes Daphne Shahid MD - 07/05/2017 6:08 PM EST CARDIOLOGY HISTORY & PHYSICAL EXAM Date of Admission: 07/05/2017 ( Hospital Day 0 days ) Responsible Attending: Daphne Shahid MD PCP: Lovely Vicente MD PCP#: [phone] Patient Active Problem List Diagnosis Code ??? [...] with heparin drip and transferred to [facility]. While there, continued sob, question of chest pain. Stat TTE showing WMA diffusely and EF around 20%. No significant valvular disease. Taken to the laboratory assistant urgently for ongoing STEMI. [facility] Labs: INR 1.0 WBC 5.88 Hgb [...] I/O - s/p lasix in the laboratory assistant, redose to aim net neg [...] Medicine, PGY-2 Cardiology S1, Team Pager # [phone] CARDIOLOGY ATTENDING NOTE Patient: Gregory Hoang Date [...] amenable for PCI. DAPHNE SHAHID MD Pager [phone] documented in this encounter Miscellaneous Notes Consult Note - Daphne Shahid MD - 07/14/2017 11:46 AM EST Heart Failure Service Inpatient Consult Note Gregory Hoang Date of : 1945 Age: 72 y.o. Today's date: 07/14/17 PCP: Lovely Vicente MD PANEL BEATER: None Place of Service: C451-A Reason for [...] 33.75) performed by Yuan Webber MD at [facility] OR ??? PRO CABG, ARTERY-VEIN, TWO N/A 07/07/2017 @CABG, TWO VENOUS GRAFTS & ARTERIAL GRAFT (WRVU 7.93) performed by Yuan Webber MD at [facility] OR ??? PRO COLONOSCOPY, REMV LESN, SNARE 01/16/2014 COLONOSCOPY, POLYPECTOMY, REMOVAL LESION BY SNARE performed by Nohemi Jaimes MD at [facility] ENDOSCOPY ??? PRO ENDOSCOPY W/VIDEO-ASST VEIN HARVEST, CABG Right 07/07/2017 ENDOSCOPIC HARVEST VEIN(S) FOR CABG (WRVU 0.31) performed by Yuan Webber MD at [facility] OR ??? PRO THYROIDECTOMY 03/28/2013 THYROIDECTOMY, TOTAL OR COMPLETE performed by Manny Mcknight MD at [facility] MAIN OR Outpt Meds: Current Outpatient [...] following studies: EKG 07/14/17: NSR 75 bpm, PHARMACY TECH anterior infarct, LAD CXR 07/11/17: FINDINGS: Sternotomy wires. The patient has been extubated, left chest tube removed, and [place]-Suzi catheter removed since the 07/07/2017 study. Atelectasis [...] was discussed with Zehra. Jaden Kelley MD Microsoft Exchange Administrator Pager [phone] CARDIOLOGY ATTENDING NOTE Patient: Gregroy Hoang Date of Service: 07/14/2017 Date of [...] heart failure clinic. DAPHNE SHAHID MD Pager [phone] Plan of Care - Alden Chavarria, JEWEL FLAT SURFACER - 07/14/2017 11:35 AM EST Problem: Patient [...] Disposition: home with assist Alden Jorge Genikevin, JEWEL FLAT SURFACER Pager: [phone] Inpatient Physical Therapy Problem: Acute Rehab Services [...] sit/sit to supine -- Bed Mobility Goal, [place] Level supervision required -- Bed Mobility Goal, [...] - 3 days -- Gait Training Goal, [place] Level supervision required -- Gait Training Goal, [...] days -- Transfer Training Goal, Activity Type igf-gm-lscri/xtpvp-rr-nkp;hkr-eu-qcpmv/sdmub-hs-awx;toilet -- Transfer Train Goal, [place] Level supervision required -- Transfer Training Goal, [...] keeping present for 2 days per family. Tractor Operator Laser Leveling noted of frustrations, house keeping sent to room. Patient offered showered twice, refused. at bedside, frustrated that shower not complete, informed that patient had refused several times. requesting to see CASING TIER, paged sent to Martha, will come to bedside (middle of consult). not willing to wait, Martha notified that family had gone home. Encouraged to come for morning rounds a t 8am. Diabetes team at bedside - insulin adjustments made. Call cabello in reach. Continue to monitor. PLAN MOVING FORWARD: Ambulate, dressing changes BID, Please change drsg at 4am per Martha CASING TIER request. INDIVIDUALIZED FALL PREVENTION INTERVENTIONS: Patient-specific fall [...] levels on the lower side, 60ml of [place] juice given after a FS of 80. [...] Anticipated Discharge Disposition: home with assist Pager: [phone] CLARISSA SEGAL, PT 07/12/2017 Physical Therapy Rehabilitation [...] to sit/sit to supine Bed Mobility Goal, [place] Level supervision required Bed Mobility Goal, Additional Goal adheres to psternal precautions for transfer Goal: Gait Training Goal Stand Alone Therapy Goal Outcome: Ongoing (Interventions Implemented as Appropriate) 07/12/17 1225 Gait Training Goal Gait Training Goal, Date Established 07/12/17 Gait Training Goal, Time to Achieve 2 - 3 days Gait Training Goal, [place] Level supervision required Gait Training Goal, Assist [...] 3 days Transfer Training Goal, Activity Type jwd-mw-ehvgv/drhqq-mk-ifs;hpc-en-lrkqh/wwkvw-gb-sgf;toilet Transfer Train Goal, [place] Level supervision required Transfer Training Goal, Additional Goal adheres to sternal precautions during transfer Consult Note - Octavia Vaughn RN - 07/12/2017 10:50 AM EST [facility] CARDIAC REHABILITATION Gregory Hoang was seen today regarding participation in the outpatient Phase 2 Cardiac Rehabilitation at [facility]. The patient agrees to a referral [...] IV site, amio to other piv and OPERATIONS COORDINATOR at bedside to help assess, IV [...] staff, he stood and marched in place. Thermal weak, wanting to sit back down. Remained [...] Health/Prescription Coverage: Primary Insurance: MEDICARE Secondary Insurance: [employer] Prescription Coverage: yes Preferred Pharmacy: [facility] [address] Other: none Primary Care Provider: Lovely Vicente MD [phone] Patient/Caregiver Goals of Treatment:live and get my breath back Potential Needs for Transition of Care: Rehab/SNF: [facility] Home Health: NA DME: TBD Dialysis: na Community Resources: available Transportation: yes Other: none Anticipated Barriers to Discharge/Special Considerations: none Plan: Likely SNF Rehab before home A member of the Care Management team will continue to monitor progress, follow for continuity of care and assist with transition of care planning. ERLIN Weiss Pager: [phone] Consult Note - Katerin Azul RN - [...] management and to provide a review of trip follower diabetes care. Diabetes History: Gregory Hoang has [...] patient W/E coverage, Dr. Jeane Tatum, pager [phone] Katerin Azul APRN Endocrinology Diabetes Management Pager [phone] Plan of Care - Walt Stephanie Wyatt [...] Operative Note Patient Name: Gregory Hoang : [id number] MR#: [id number] Case Date: 07/07/2017 Surgeon: Surgeon(s) and Role: * Yuan Webber MD - Primary * Michael Drake PA - Physician Environmental Services Worker * Linda Flores PA - Physician Environmental Services Worker Preoperative diagnosis: 3VD Postoperative diagnosis: CAD, severe [...] Operative Note Patient Name: Gregory Hoang : [id number] MR#: [id number] Case Date: 07/07/2017 Surgeon: Surgeon(s) and Role: * Yuan Webber MD - Primary * Michael Drake PA - Physician Environmental Services Worker * Linda Flores PA - Physician Environmental Services Worker Preoperative diagnosis: 3VD Postoperative diagnosis: CAD, severe [...] code status: Full Code Katty Hahn, MS3 [facility] Cardiology S1 (Pager [phone]) Plan of Care - Emelia Ibarra RN [...] SETUP performed by Manny Mcknight MD at [facility] MAIN OR ??? PRO COLONOSCOPY, REMV LESN, SNARE 01/16/2014 COLONOSCOPY, POLYPECTOMY, REMOVAL LESION BY SNARE performed by Nohemi Jaimes MD at [facility] ENDOSCOPY ??? PRO THYROIDECTOMY 03/28/2013 THYROIDECTOMY, TOTAL OR COMPLETE performed by Manny Mcknight MD at [facility] MAIN OR Social History: Social History [...] with other involved physicians Yuan Webber MD [phone] Med Student Progress Note - Katty Hahn [...] BiPAP - s/p lasix in the laboratory assistant, was net -1.5L - s/p [...] FULL - Dispo: CVCC Katty Hahn, M3 [facility] Cardiology S1 (Pager [phone]) Plan of Care - Stephanie Godoy RN - 07/06/2017 5:00 AM EST Problem: Patient Care Overview Goal: Plan of Care Review 07/06/17 3916 Coping/Psychosocial Plan Of Care Reviewed With patient;family [...] urinal without difficulty. Lasix given in laboratory assistant, 1.4 L out at this [...] Dolan MD [facility] [address] [place] [address] (Wo rk) 05/28/2022 Laboratory Appointment Lab 05/28/2022 Office Visit Cardiology Zulma Dolan MD [facility] [place] [address] Liz Poole PA [facility] [place] [address] 06/10/2022 Office Visit Dermatology Laura Scherer MD [facility] [address] [place], [place] [address] (Wo rk) Scheduled Orders [...] procedure are i n the results section. 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 12:00 Res ults for [...] Yes 07/07/2017 1:35 [facility] PM EST 7.93) @CABG, USING [...] 8:20 Results f or this ([facility]) PM EST procedure are i n the [...] 4:55 Results f or this ([facility]) PM EST procedure are i n the [...] 2017 EXAMINATION: XR CHEST PA AND LATERAL ([employer] NERIC) CLINICAL HISTORY: CABG x 3 TECHNIQUE: [...] Teague APRN IMG DX ORDERABLES SCAN DOC: ASSOCIATE MANAGER AFFILIATE MARKETING (07/15/2017 12:00 AM EST) Narrative 07/15/2017 [...] 186 65 - 199 [place] mg/dL [facility] Comment: Supplemental ranges: <140 mg/dL before meals <180 mg/dL all other times of the day Specimen Anatomical Collection Method Collection Time Receive d Time (Source) Location / / Volume Laterality Blood specimen 07/14/2017 11:56 7 (specimen) AM EST 11:56 AM EST Yuan Webber MD POINT OF CARE TEST ORDERABLE S Performing Organization Address City/State/ZIP Code Phon e Number [address] POCT Glucose (07/14/2017 7:52 AM EST) athologist Signature POC Glucose 126 65 - 199 [facility] mg/dL [facility] Comment: Supplemental ranges: <140 mg/dL before meals <180 mg/dL all other times of the day Specimen Anatomical Collection Method Collection Time Receive d Time (Source) Location / / Volume Laterality Blood specimen 07/14/2017 7:52 AM 017 7:52 (specimen) EST AM EST Yuan Webber MD POINT OF CARE TEST ORDERABLE S Performing Organization Address City/State/ZIP Code Phon e Number [address] (ABNORMAL) Prothrombin Time (07/14/2017 4:46 AM EST) athologist Signature PT 26.4 (H) 11.8 - 14.0 [facility] LABORATORY INR 2.4 (H) 0.9 - 1.1 [facility] [...] Address City/State/ZIP Code Phon e Number [address] Potassium (07/14/2017 4:46 AM EST) athologist Signature Potassium 4.3 3.5 - 5.0 [facility] mmol/L [facility] Comment: Please note: ??Patients with WBC [...] Address City/State/ZIP Code Phon e Number [address] POCT Glucose (07/14/2017 4:34 AM EST) athologist Signature POC Glucose 115 65 - 199 [facility] Comment: Supplemental ranges: <140 mg/dL before meals <180 mg/dL all other times of the day Specimen Anatomical Collection Method Collection Time Receive d Time (Source) Location / / Volume Laterality Blood specimen 07/14/2017 4:34 AM 017 4:34 (specimen) EST AM EST Yuan Webber MD POINT OF CARE TEST ORDERABLE S Performing Organization Address City/[facility]/ZIP Code Phon e Number [address] POCT Glucose (07/13/2017 11:33 PM EST) athologist Signature POC Glucose 132 65 - 199 [facility]dL [facility] Comment: Supplemental ranges: <140 mg/dL before meals <180 mg/dL all other times of the day Specimen Anatomical Collection Method Collection Time Receive d Time (Source) Location / / Volume Laterality Blood specimen 07/13/2017 11:33 7 (specimen) PM EST 11:33 PM EST Yuan Webber MD POINT OF CARE TEST ORDERABLE S Performing Organization Address City/[facility]/ZIP Code Phon e Number [address] POCT Glucose (07/13/2017 9:25 PM EST) athologist Signature POC Glucose 121 65 - 199 [facility] mg/dL [facility] Comment: Supplemental ranges: <140 mg/dL before meals <180 mg/dL all other times of the day Specimen Anatomical Collection Method Collection Time Receive d Time (Source) Location / / Volume Laterality Blood specimen 07/13/2017 9:25 PM 017 9:25 (specimen) EST PM EST Yuan Webber MD POINT OF CARE TEST ORDERABLE S Performing Organization Address City/State/ZIP Code Phon e Number [address] POCT Glucose (07/13/2017 4:55 PM EST) P athologist Signature POC Glucose 79 65 - 199 [place] mg/dL [facility] Comment: Supplemental ranges: <140 mg/dL before meals <180 mg/dL all other times of the day Specimen Anatomical Collection Method Collection Time Receive d Time (Source) Location / / Volume Laterality Blood specimen 07/13/2017 4:55 PM 017 4:55 (specimen) EST PM EST Yuan Webber MD POINT OF CARE TEST ORDERABLE S Performing Organization Address City/State/ZIP Code Phon e Number [address] POCT Glucose (07/13/2017 11:16 AM EST) athologist Signature POC Glucose 163 65 - 199 [place] mg/dL [facility] Comment: Supplemental ranges: <140 mg/dL before meals <180 mg/dL all other times of the day Specimen Anatomical Collection Method Collection Time Receive d Time (Source) Location / / Volume Laterality Blood specimen 07/13/2017 11:16 7 (specimen) AM EST 11:16 AM EST Yuan Webber MD POINT OF CARE TEST ORDERABLE S Performing Organization Address City/State/ZIP Code Phon e Number [address] POCT Glucose (07/13/2017 8:07 [...] City/[facility]/[place] [address] (ABNORMAL) Prothrombin Time (07/13/2017 4:26 AM EST) P athologist Signature PT 20.8 (H) 11.8 - 14.0 [facility] LABORATORY INR 1.8 (H) 0.9 - 1.1 [facility] [...] Wilson APRN HEMATOLOGY ORDERABLES Performing Organization Address City/[facility]/[place] [address] (ABNORMAL) Basic Metabolic Panel (non-fasting) (07/13/2017 4:26 AM EST) P athologist Signature Glucose Lvl 95 65 - 199 [facility] mg/dL [facility] LAB[facility]ORY Estimated GFR 60 >=60 [facility] Comment: The reported eGFR should be multiplied b y 1.2 for patients. The MDRD is not an appropriate measure o f renal function for patients with body mass extremes or in patients with acute kidney failure. http://Anulex/DHnkdep http://Anulex/DHMCnkf Specimen Anatomical Collection Method Collection Time Receive d Time (Source) Location / / Volume Laterality Blood specimen 07/13/2017 4:26 AM 017 4:46 (specimen) EST AM EST Resulting Agency Comment Spec In Lab Makayla Wilson APRN CHEMISTRY ORDERABLES Performing Organization Address City/[facility]/ZIP Code Phon e Number [address] POCT Glucose (07/13/2017 3:52 AM EST) P athologist Signature POC Glucose 93 65 - 199 [facility] mg/dL [facility] Comment: Supplemental ranges: <140 mg/dL before meals <180 mg/dL all other times of the day Specimen Anatomical Collection Method Collection Time Receive d Time (Source) Location / / Volume Laterality Blood specimen 07/13/2017 3:52 AM 017 3:52 (specimen) EST AM EST Yuan Webber MD POINT OF CARE TEST ORDERABLE S Performing Organization Address City/State/ZIP Code Phon e Number [address] POCT Glucose (07/13/2017 12:21 AM EST) athologist Signature POC Glucose 80 65 - 199 [place] mg/dL [facility] Comment: Supplemental ranges: <140 mg/dL before meals <180 mg/dL all other times of the day Specimen Anatomical Collection Method Collection Time Receive d Time (Source) Location / / Volume Laterality Blood specimen 07/13/2017 12:21 7 (specimen) AM EST 12:21 AM EST Yuan Webber MD POINT OF CARE TEST ORDERABLE S Performing Organization Address City/State/ZIP Code Phon e Number [address] POCT Glucose (07/12/2017 8:22 PM EST) athologist Signature POC Glucose 119 65 - 199 [facility] mg/dL [facility] Comment: Supplemental ranges: <140 mg/dL before meals <180 mg/dL all other times of the day Specimen Anatomical Collection Method Collection Time Receive d Time (Source) Location / / Volume Laterality Blood specimen 07/12/2017 8:22 PM 017 8:22 (specimen) EST PM EST Yuan Webber MD POINT OF CARE TEST ORDERABLE S Performing Organization Address City/State/ZIP Code Phon e Number [address] POCT Glucose (07/12/2017 4:02 PM EST) athologist Signature POC Glucose 114 65 - 199 [place] mg/dL [facility] Comment: Supplemental ranges: <140 mg/dL before meals <180 mg/dL all other times of the day Specimen Anatomical Collection Method Collection Time Receive d Time (Source) Location / / Volume Laterality Blood specimen 07/12/2017 4:02 PM 017 4:02 (specimen) EST PM EST Yuan Webber MD POINT OF CARE TEST ORDERABLE S Performing Organization Address City/State/[place] [address] POCT Glucose (07/12/2017 11:28 AM EST) athologist Signature POC Glucose 164 65 - 199 [facility] Comment: Supplemental ranges: <140 mg/dL before meals <180 mg/dL all other times of the day Specimen Anatomical Collection Method Collection Time Receive d Time (Source) Location / / Volume Laterality Blood specimen 07/12/2017 11:28 7 (specimen) AM EST 11:28 AM EST Yuan Webber MD POINT OF CARE TEST ORDERABLE S Performing Organization Address City/State/ZIP Code Phon e Number [address] POCT Glucose (07/12/2017 7:34 AM EST) athologist Signature POC Glucose 109 65 - 199 [facility] Comment: Supplemental ranges: <140 mg/dL before meals <180 mg/dL all other times of the day Specimen Anatomical Collection Method Collection Time Receive d Time (Source) Location / / Volume Laterality Blood specimen 07/12/2017 7:34 AM 017 7:34 (specimen) EST AM EST Yuan Webber MD POINT OF CARE TEST ORDERABLE S Performing Organization Address City/State/[place] [address] (ABNORMAL) Basic Metabolic Panel (non-fasting) (07/12/2017 4:11 AM EST) athologist Signature Glucose Lvl 92 65 - 199 [facility]dL [facility] [...] 107 mmol/L [facility] CO2 Not Perf 22 - 31 mmol/L [facility] Comment: Add-on request. Sample too old to perform test. Anion Gap Not Calculated 5 - 15 mmol/L [facility] Calcium 8.1 (L) 8.5 - 10.5 mg/dL [facility] Estimated GFR 58 (L) >=60 [facility] Comment: The reported eGFR should be multiplied b y 1.2 for patients. The MDRD is not an appropriate measure o f renal function for patients with body mass extremes or in patients with acute kidney failure. http://Anulex/DHnkdep http://Anulex/DHMCnkf Specimen Anatomical Collection Method Collection Time Receive d Time (Source) Location / / Volume Laterality Blood specimen 07/12/2017 4:11 AM 017 8:57 (specimen) EST AM EST Resulting Agency Comment Spec In Lab Makayla Katie QUINONES CHEMISTRY ORDERABLES Performing Organization Address City/State/[place] [address] (ABNORMAL) Prothrombin Time (07/12/2017 4:11 AM EST) P athologist Signature PT 15.4 (H) 11.8 - 14.0 [facility] LABORATORY INR 1.2 (H) 0.9 - 1.1 [facility] [...] Wilson APRN HEMATOLOGY ORDERABLES Performing Organization Address City/[facility]/[place] [address] Potassium (07/12/2017 4:11 AM EST) athologist Signature Potassium 3.8 3.5 - 5.0 [facility] mmol/L [facility] Comment: Please note: ??Patients with WBC [...] Wilson APRN CHEMISTRY ORDERABLES Performing Organization Address City/[facility]/[place] [address] POCT Glucose (07/12/2017 4:10 AM EST) athologist Signature POC Glucose 90 65 - [address] [facility] mg/dL [facility] Comment: Supplemental ranges: <140 mg/dL before meals <180 mg/dL all other times of the day Specimen Anatomical Collection Method Collection Time Receive d Time (Source) Location / / Volume Laterality Blood specimen 07/12/2017 4:10 AM 017 4:10 (specimen) EST AM EST Yuan Webber MD POINT OF CARE TEST ORDERABLE S Performing Organization Address City/[facility]/[place] [address] POCT Glucose (07/11/2017 11:57 PM EST) athologist Signature POC Glucose 98 65 - [address] [facility] mg/dL [facility] Comment: Supplemental ranges: <140 mg/dL before meals <180 mg/dL all other times of the day Specimen Anatomical Collection Method Collection Time Receive d Time (Source) Location / / Volume Laterality Blood specimen 07/11/2017 11:57 7 (specimen) PM EST 11:57 PM EST Yuan Webber MD POINT OF CARE TEST ORDERABLE S Performing Organization Address City/State/[place] [address] POCT Glucose (07/11/2017 8:32 PM EST) P athologist Signature POC Glucose 146 65 - 199 [facility] mg/dL [facility] Comment: Supplemental ranges: <140 mg/dL before meals <180 mg/dL all other times of the day Specimen Anatomical Collection Method Collection Time Receive d Time (Source) Location / / Volume Laterality Blood specimen 07/11/2017 8:32 PM 017 8:32 (specimen) EST PM EST Yuan Webber MD POINT OF CARE TEST ORDERABLE S Performing Organization Address City/State/[place] [address] XR Chest PA & [...] e xtubated, left chest tube removed, and [place]-Suzi catheter removed since the study. Atelectasis at [...] e xtubated, left chest tube removed, and [place]-Suzi catheter removed since the study. Atelectasis at [...] POC Glucose 223 (H) 65 - 199 [facility] Comment: Supplemental ranges: <140 mg/dL before meals <180 mg/dL all other times of the day Specimen Anatomical Collection Method Collection Time Receive d Time (Source) Location / / Volume Laterality Blood specimen 07/11/2017 4:05 PM 017 4:05 (specimen) EST PM EST Yuan Webber MD POINT OF CARE TEST ORDERABLE S Performing Organization Address City/[facility]/ZIP Code Phon e Number [address] POCT Glucose (07/11/2017 11:55 AM EST) athologist Signature POC Glucose 176 65 - 199 [facility] mg/dL [facility] Comment: Supplemental ranges: <140 mg/dL before meals <180 mg/dL all other times of the day Specimen Anatomical Collection Method Collection Time Receive d Time (Source) Location / / Volume Laterality Blood specimen 07/11/2017 11:55 7 (specimen) AM EST 11:55 AM EST Yuan Webber MD POINT OF CARE TEST ORDERABLE S Performing Organization Address City/[facility]/[place] [address] POCT Glucose (07/11/2017 7:53 AM EST) athologist Signature POC Glucose 189 65 - [address] [facility] mg/dL [facility] Comment: Supplemental ranges: <140 mg/dL before meals <180 mg/dL all other times of the day Specimen Anatomical Collection Method Collection Time Receive d Time (Source) Location / / Volume Laterality Blood specimen 07/11/2017 7:53 AM 017 7:53 (specimen) EST AM EST Yuan Webber MD POINT OF CARE TEST ORDERABLE S Performing Organization Address City/[facility]/ZIP Code Phon e Number [address] POCT Glucose (07/11/2017 4:22 AM EST) athologist Signature POC Glucose 151 65 - [address] [facility] mg/dL [facility] Comment: Supplemental ranges: <140 mg/dL before meals <180 mg/dL all other times of the day Specimen Anatomical Collection Method Collection Time Receive d Time (Source) Location / / Volume Laterality Blood specimen 07/11/2017 4:22 AM 017 4:22 (specimen) EST AM EST Yuan Webber MD POINT OF CARE TEST ORDERABLE S Performing Organization Address City/[facility]/ZIP Code Phon e Number [address] Potassium (07/11/2017 2:20 AM EST) athologist Signature Potassium 4.5 3.5 - 5.0 [facility] mmol/L [facility] Comment: Please note: ??Patients with WBC [...] Webber MD CHEMISTRY ORDERABLES Performing Organization Address City/[facility]/ZIP Code Phon e Number [address] POCT Glucose (07/11/2017 12:17 AM EST) athologist Signature POC Glucose 162 65 - 199 [place] [facility] mg/dL [facility] Comment: Supplemental ranges: <140 mg/dL before meals <180 mg/dL all other times of the day Specimen Anatomical Collection Method Collection Time Receive d Time (Source) Location / / Volume Laterality Blood specimen 07/11/2017 12:17 7 (specimen) AM EST 12:17 AM EST Yuan Webber MD POINT OF CARE TEST ORDERABLE S Performing Organization Address [facility]/ZIP Code Phon e Number [address] POCT Glucose (07/10/2017 8:47 PM EST) athologist Signature POC Glucose 191 65 - 199 [place] [facility] mg/dL [facility] Comment: Supplemental ranges: <140 mg/dL before meals <180 mg/dL all other times of the day Specimen Anatomical Collection Method Collection Time Receive d Time (Source) Location / / Volume Laterality Blood specimen 07/10/2017 8:47 PM 017 8:47 (specimen) EST PM EST Yuan Webber MD POINT OF CARE TEST ORDERABLE S Performing Organization Address City/[facility]/ZIP Code [place] [address] POCT Glucose (07/10/2017 4:06 PM EST) athologist Signature POC Glucose 131 65 - 199 [place] [facility] mg/dL [facility] Comment: Supplemental ranges: <140 mg/dL before meals <180 mg/dL all other times of the day Specimen Anatomical Collection Method Collection Time Receive d Time (Source) Location / / Volume Laterality Blood specimen 07/10/2017 4:06 PM 017 4:06 (specimen) EST PM EST Yuan Webber MD POINT OF CARE TEST ORDERABLE S Performing Organization Address City/State/ZIP Code Phon e Number [address] POCT Glucose (07/10/2017 3:08 PM EST) athologist Signature POC Glucose 151 65 - 199 [facility] Comment: Supplemental ranges: <140 mg/dL before meals <180 mg/dL all other times of the day Specimen Anatomical Collection Method Collection Time Receive d Time (Source) Location / / Volume Laterality Blood specimen 07/10/2017 3:08 PM 017 3:08 (specimen) EST PM EST Yuan Webber MD POINT OF CARE TEST ORDERABLE S Performing Organization Address City/State/ZIP Code Phon e Number [address] POCT Glucose (07/10/2017 2:25 PM EST) athologist Signature POC Glucose 146 65 - 199 [facility] Comment: Supplemental ranges: <140 mg/dL before meals <180 mg/dL all other times of the day Specimen Anatomical Collection Method Collection Time Receive d Time (Source) Location / / Volume Laterality Blood specimen 07/10/2017 2:25 PM 017 2:25 (specimen) EST PM EST Yuan Webber MD POINT OF CARE TEST ORDERABLE S Performing Organization Address City/State/ZIP Code Phon e Number [address] POCT Glucose (07/10/2017 1:23 PM EST) athologist Signature POC Glucose 166 65 - 199 [place] mg/dL [facility] Comment: Supplemental ranges: <140 mg/dL before meals <180 mg/dL all other times of the day Specimen Anatomical Collection Method Collection Time Receive d Time (Source) Location / / Volume Laterality Blood specimen 07/10/2017 1:23 PM 017 1:23 (specimen) EST PM EST Yuan Webber MD POINT OF CARE TEST ORDERABLE S Performing Organization Address City/State/ZIP Code Phon e Number [address] POCT Glucose (07/10/2017 11:52 AM EST) P athologist Signature POC Glucose 157 65 - 199 [place] mg/dL [facility] Comment: Supplemental ranges: <140 mg/dL before meals <180 mg/dL all other times of the day Specimen Anatomical Collection Method Collection Time Receive d Time (Source) Location / / Volume Laterality Blood specimen 07/10/2017 11:52 7 (specimen) AM EST 11:52 AM EST Yuan Webber MD POINT OF CARE TEST ORDERABLE S Performing Organization Address City/State/ZIP Code Phon e Number [address] POCT Glucose (07/10/2017 11:01 AM EST) athologist Signature POC Glucose 158 65 - 199 [facility] mg/dL [facility] Comment: Supplemental ranges: <140 mg/dL before meals <180 mg/dL all other times of the day Specimen Anatomical Collection Method Collection Time Receive d Time (Source) Location / / Volume Laterality Blood specimen 07/10/2017 11:01 7 (specimen) AM EST 11:01 AM EST Yuan Webber MD POINT OF CARE TEST ORDERABLE S Performing Organization Address City/State/ZIP Code Phon e Number [address] POCT Glucose (07/10/2017 9:54 AM EST) athologist Signature POC Glucose 160 65 - 199 [place] mg/dL [facility] Comment: Supplemental ranges: <140 mg/dL before meals <180 mg/dL all other times of the day Specimen Anatomical Collection Method Collection Time Receive d Time (Source) Location / / Volume Laterality Blood specimen 07/10/2017 9:54 AM 017 9:54 (specimen) EST AM EST Yuan Webber MD POINT OF CARE TEST ORDERABLE S Performing Organization Address City/State/[place] [address] POCT Glucose (07/10/2017 8:58 AM EST) athologist Signature POC Glucose 183 65 - 199 [facility] mg/dL [facility] Comment: Supplemental ranges: <140 mg/dL before meals <180 mg/dL all other times of the day Specimen Anatomical Collection Method Collection Time Receive d Time (Source) Location / / Volume Laterality Blood specimen 07/10/2017 8:58 AM 017 8:58 (specimen) EST AM EST Yuan Webber MD POINT OF CARE TEST ORDERABLE S Performing Organization Address City/State/ZIP Code Phon e Number [address] POCT Glucose (07/10/2017 8:01 AM EST) athologist Signature POC Glucose 173 65 - 199 [place] mg/dL [facility] Comment: Supplemental ranges: <140 mg/dL before meals <180 mg/dL all other times of the day Specimen Anatomical Collection Method Collection Time Receive d Time (Source) Location / / Volume Laterality Blood specimen 07/10/2017 8:01 AM 017 8:01 (specimen) EST AM EST Yuan Webber MD POINT OF CARE TEST ORDERABLE S Performing Organization Address City/State/ZIP Code Phon e Number [address] POCT Glucose (07/10/2017 7:05 AM EST) athologist Signature POC Glucose 166 65 - 199 [place] mg/dL [facility] Comment: Supplemental ranges: <140 mg/dL before meals <180 mg/dL all other times of the day Specimen Anatomical Collection Method Collection Time Receive d Time (Source) Location / / Volume Laterality Blood specimen 07/10/2017 7:05 AM 017 7:05 (specimen) EST AM EST Yuan Webber MD POINT OF CARE TEST ORDERABLE S Performing Organization Address City/State/ZIP Code Phon e Number [address] POCT Glucose (07/10/2017 6:00 AM EST) P athologist Signature POC Glucose 162 65 - 199 [facility] mg/dL [facility] Comment: Supplemental ranges: <140 mg/dL before meals <180 mg/dL all other times of the day Specimen Anatomical Collection Method Collection Time Receive d Time (Source) Location / / Volume Laterality Blood specimen 07/10/2017 6:00 AM 017 6:00 (specimen) EST AM EST Yuan Webber MD POINT OF CARE TEST ORDERABLE S Performing Organization Address City/State/[place] [address] (ABNORMAL) Differential, Automated (07/10/2017 4:28 AM EST) Patholo gist Method Time Signature Neutrophils % 87.9 % [facility] Neutr Abs (ANC) 10.70 (H) 1.70 - [facility] 6.10 [facility] x10(3)/[facility] LABORATORY Lymphocytes % 3.9 % [facility] Lymphocytes Abs 0.5 (L) 0.9 - 3.2 [facility] x10(3)/[facility] LABORATORY Monocytes % 7.0 % [facility] Monocyte Abs 0.8 0.3 - 0.9 [facility] x10(3)/[facility] LABORATORY Eosinophils % 0.3 % [facility] Eosinophils Abs 0.0 0.0 - 0.4 [facility] x10(3)/[facility] LABORATORY Basophils % 0.2 % [facility] Basophils Abs 0.0 0.0 - 0.1 [facility] x10(3)/[facility] LABORATORY Immature Gran % 0.70 % [facility] [...] Address City/State/[place] [address] (ABNORMAL) Hemogram (07/10/2017 4:28 AM EST) Analysis Performed At Patho logist Time Signature WBC 12.2 (H) 4.0 - 9.5 [facility] x10(3)/[facility] LABORATORY RBC 3.31 (L) 4.58 [facility] 5.54 [facility] x10(6)/[facility] LABORATORY Hemoglobin 9.8 (L) 13.7 - [facility] 16.5 gm/dL [facility] Hematocrit 30.0 (L) 40.[address] [facility] 48.5 % [facility] MCV 90.6 82.9 - [facility]1 [facility] LABORATORY MCH 29.6 27.[address] [facility] 32.1 pg [facility] MCHC 32.7 32.0 [facility] 35.7 gm/dL [facility] Platelets 135 (L) 145 - 357 [facility] x10(3)/[facility] LABORATORY RDWSD 50.8 (H) 36.0 - [facility] 45.0 [facility] LABORATORY RDWCV 15.4 (H) 11.4 - [facility] 13.8 % [facility] MPV 10.0 7.6 - 12.9 [facility] LABORATORY nRBC % Auto 0.0 % [facility] nRBC Abs Auto 0.000 0.000 [facility] 0.000 [facility] x10(3)/[facility] LABORATORY Specimen Anatomical Collection Method Collection Time Receive d Time (Source) Location / / Volume Laterality Blood specimen 07/10/2017 4:28 AM 017 4:36 (specimen) EST AM EST Resulting Agency Comment Spec In Lab Yuan Webber MD HEMATOLOGY ORDERABLES Performing Organization Address City/[facility]/ZIP [place] [address] (ABNORMAL) Basic Metabolic Panel (non-fasting) (07/10/2017 4:28 AM EST) P athologist Signature Glucose Lvl 178 65 - 199 [facility] mg/dL [facility] [...] Chloride 107 98 - 107 mmol/L [facility] CO2 21 (L) 22 - 31 mmol/L [facility] Anion Gap 15 5 - 15 mmol/L [facility] Calcium 7.4 (L) 8.5 - 10.5 mg/dL [facility] Estimated GFR 60 >=60 [facility] Comment: The reported eGFR should be multiplied b y 1.2 for patients. The MDRD is not an appropriate measure o f renal function for patients with body mass extremes or in patients with acute kidney failure. http://Anadys.cottonTracks/DHnkdep http://Anadys.cottonTracks/DHMCnkf Specimen Anatomical Collection Method Collection Time Receive d Time (Source) Location / / Volume Laterality Blood specimen 07/10/2017 4:28 AM 017 4:36 (specimen) EST AM EST Resulting Agency Comment Spec In Lab Yuan Webber MD CHEMISTRY ORDERABLES Performing Organization Address City/[facility]/ZIP [place] [address] POCT Glucose (07/10/2017 4:26 AM EST) P athologist Signature POC Glucose 176 65 - 199 [facility] Comment: Supplemental ranges: <140 mg/dL before meals <180 mg/dL all other times of the day Specimen Anatomical Collection Method Collection Time Receive d Time (Source) Location / / Volume Laterality Blood specimen 07/10/2017 4:26 AM 017 4:26 (specimen) EST AM EST Yuan Webber MD POINT OF CARE TEST ORDERABLE S Performing Organization Address City/State/ZIP Code Ph[place] [address] (ABNORMAL) POCT Glucose (07/10/2017 3:06 AM EST) athologist Signature POC Glucose 204 (H) 65 - 199 [facility]dL [facility] Comment: Supplemental ranges: <140 mg/dL before meals <180 mg/dL all other times of the day Specimen Anatomical Collection Method Collection Time Receive d Time (Source) Location / / Volume Laterality Blood specimen 07/10/2017 3:06 AM 017 3:06 (specimen) EST AM EST Yuan Webber MD POINT OF CARE TEST ORDERABLE S Performing Organization Address City/State/ZIP Code [place] [address] (ABNORMAL) POCT Glucose (07/10/2017 2:10 AM EST) P athologist Signature POC Glucose 203 (H) 65 - 199 [facility] mg/dL [facility] Comment: Supplemental ranges: <140 mg/dL before meals <180 mg/dL all other times of the day Specimen Anatomical Collection Method Collection Time Receive d Time (Source) Location / / Volume Laterality Blood specimen 07/10/2017 2:10 AM 017 2:10 (specimen) EST AM EST Yuan Webber MD POINT OF CARE TEST ORDERABLE S Performing Organization Address City/State/ZIP Code Phon e Number [address] POCT Glucose (07/10/2017 1:09 AM EST) P athologist Signature POC Glucose 196 65 - 199 [facility] mg/dL [facility] Comment: Supplemental ranges: <140 mg/dL before meals <180 mg/dL all other times of the day Specimen Anatomical Collection Method Collection Time Receive d Time (Source) Location / / Volume Laterality Blood specimen 07/10/2017 1:09 AM 017 1:09 (specimen) EST AM EST Yuan Webber MD POINT OF CARE TEST ORDERABLE S Performing Organization Address City/State/ZIP Code Phon e Number [address] POCT Glucose (07/10/2017 12:10 AM EST) athologist Signature POC Glucose 173 65 - 199 [facility]dL [facility] Comment: Supplemental ranges: <140 mg/dL before meals <180 mg/dL all other times of the day Specimen Anatomical Collection Method Collection Time Receive d Time (Source) Location / / Volume Laterality Blood specimen 07/10/2017 12:10 7 (specimen) AM EST 12:10 AM EST Yuan Webber MD POINT OF CARE TEST ORDERABLE S Performing Organization Address City/State/ZIP Code Phon e Number [address] POCT Glucose (07/09/2017 11:01 PM EST) athologist Signature POC Glucose 140 65 - 199 [place] mg/dL [facility] Comment: Supplemental ranges: <140 mg/dL before meals <180 mg/dL all other times of the day Specimen Anatomical Collection Method Collection Time Receive d Time (Source) Location / / Volume Laterality Blood specimen 07/09/2017 11:01 7 (specimen) PM EST 11:01 PM EST Yuan Webber MD POINT OF CARE TEST ORDERABLE S Performing Organization Address City/State/ZIP Code Phon e Number [address] POCT Glucose (07/09/2017 10:05 PM EST) athologist Signature POC Glucose 144 65 - 199 [place] mg/dL [facility] Comment: Supplemental ranges: <140 mg/dL before meals <180 mg/dL all other times of the day Specimen Anatomical Collection Method Collection Time Receive d Time (Source) Location / / Volume Laterality Blood specimen 07/09/2017 10:05 7 (specimen) PM EST 10:05 PM EST Yuan Webber MD POINT OF CARE TEST ORDERABLE S Performing Organization Address City/State/ZIP Code Phon e Number [address] POCT Glucose (07/09/2017 9:31 PM EST) athologist Signature POC Glucose 121 65 - 199 [facility] mg/dL [facility] Comment: Supplemental ranges: <140 mg/dL before meals <180 mg/dL all other times of the day Specimen Anatomical Collection Method Collection Time Receive d Time (Source) Location / / Volume Laterality Blood specimen 07/09/2017 9:31 PM 017 9:31 (specimen) EST PM EST Yuan Webber MD POINT OF CARE TEST ORDERABLE S Performing Organization Address City/State/ZIP Code Phon e Number [address] POCT Glucose (07/09/2017 9:03 PM EST) athologist Signature POC Glucose 98 65 - 199 [place] mg/dL [facility] Comment: Supplemental ranges: <140 mg/dL before meals <180 mg/dL all other times of the day Specimen Anatomical Collection Method Collection Time Receive d Time (Source) Location / / Volume Laterality Blood specimen 07/09/2017 9:03 PM 017 9:03 (specimen) EST PM EST Yuan Webber MD POINT OF CARE TEST ORDERABLE S Performing Organization Address City/State/[place] [address] POCT Glucose (07/09/2017 8:09 PM EST) athologist Signature POC Glucose 117 65 - 199 [place] mg/dL [facility] Comment: Supplemental ranges: <140 mg/dL before meals <180 mg/dL all other times of the day Specimen Anatomical Collection Method Collection Time Receive d Time (Source) Location / / Volume Laterality Blood specimen 07/09/2017 8:09 PM 017 8:09 (specimen) EST PM EST Yuan Webber MD POINT OF CARE TEST ORDERABLE S Performing Organization Address City/State/ZIP Code Phon e Number [address] POCT Glucose (07/09/2017 5:40 PM EST) athologist Signature POC Glucose 155 65 - 199 [place] mg/dL [facility] Comment: Supplemental ranges: <140 mg/dL before meals <180 mg/dL all other times of the day Specimen Anatomical Collection Method Collection Time Receive d Time (Source) Location / / Volume Laterality Blood specimen 07/09/2017 5:40 PM 017 5:40 (specimen) EST PM EST Yuan Webber MD POINT OF CARE TEST ORDERABLE S Performing Organization Address City/State/ZIP Code Phon e Number [address] POCT Glucose (07/09/2017 4:24 PM EST) athologist Signature POC Glucose 164 65 - 199 [place] mg/dL [facility] Comment: Supplemental ranges: <140 mg/dL before meals <180 mg/dL all other times of the day Specimen Anatomical Collection Method Collection Time Receive d Time (Source) Location / / Volume Laterality Blood specimen 07/09/2017 4:24 PM 017 4:24 (specimen) EST PM EST Yuan Webber MD POINT OF CARE TEST ORDERABLE S Performing Organization Address City/State/ZIP Code Phon e Number [address] POCT Glucose (07/09/2017 3:19 PM EST) athologist Signature POC Glucose 166 65 - 199 [place] mg/dL [facility] Comment: Supplemental ranges: <140 mg/dL before meals <180 mg/dL all other times of the day Specimen Anatomical Collection Method Collection Time Receive d Time (Source) Location / / Volume Laterality Blood specimen 07/09/2017 3:19 PM 017 3:19 (specimen) EST PM EST Yuan Webber MD POINT OF CARE TEST ORDERABLE S Performing Organization Address City/State/ZIP Code Phon e Number [address] POCT Glucose (07/09/2017 2:26 PM EST) athologist Signature POC Glucose 179 65 - 199 [facility] mg/dL [facility] Comment: Supplemental ranges: <140 mg/dL before meals <180 mg/dL all other times of the day Specimen Anatomical Collection Method Collection Time Receive d Time (Source) Location / / Volume Laterality Blood specimen 07/09/2017 2:26 PM 017 2:26 (specimen) EST PM EST Yuan Webber MD POINT OF CARE TEST ORDERABLE S Performing Organization Address City/State/[place] [address] (ABNORMAL) POCT Glucose (07/09/2017 1:29 PM EST) athologist Signature POC Glucose 210 (H) 65 - 199 [facility] Comment: Supplemental ranges: <140 mg/dL before meals <180 mg/dL all other times of the day Specimen Anatomical Collection Method Collection Time Receive d Time (Source) Location / / Volume Laterality Blood specimen 07/09/2017 1:29 PM 017 1:29 (specimen) EST PM EST Yuan Webber MD POINT OF CARE TEST ORDERABLE S Performing Organization Address City/State/[place] [address] POCT Glucose (07/09/2017 12:20 PM EST) P athologist Signature POC Glucose 172 65 - 199 [place] [facility] mg/dL [facility] Comment: Supplemental ranges: <140 mg/dL before meals <180 mg/dL all other times of the day Specimen Anatomical Collection Method Collection Time Receive d Time (Source) Location / / Volume Laterality Blood specimen 07/09/2017 12:20 7 (specimen) PM EST 12:20 PM EST Yuan Webber MD POINT OF CARE TEST ORDERABLE S Performing Organization Address City/State/ZIP Code Phon e Number [address] POCT Glucose (07/09/2017 11:24 AM EST) athologist Signature POC Glucose 156 65 - 199 [place] mg/dL [facility] Comment: Supplemental ranges: <140 mg/dL before meals <180 mg/dL all other times of the day Specimen Anatomical Collection Method Collection Time Receive d Time (Source) Location / / Volume Laterality Blood specimen 07/09/2017 11:24 7 (specimen) AM EST 11:24 AM EST Yuna Webber MD POINT OF CARE TEST ORDERABLE S Performing Organization Address City/State/ZIP Code Phon e Number [address] POCT Glucose (07/09/2017 11:11 AM EST) athologist Signature POC Glucose 172 65 - 199 [place] [facility] mg/dL [facility] Comment: Supplemental ranges: <140 mg/dL before meals <180 mg/dL all other times of the day Specimen Anatomical Collection Method Collection Time Receive d Time (Source) Location / / Volume Laterality Blood specimen 07/09/2017 11:11 7 (specimen) AM EST 11:11 AM EST Yuan Webber MD POINT OF CARE TEST ORDERABLE S Performing Organization Address City/State/ZIP Code Phon e Number [address] POCT Glucose (07/09/2017 10:08 AM EST) athologist Signature POC Glucose 176 65 - 199 [place] [facility] mg/dL [facility] Comment: Supplemental ranges: <140 mg/dL before meals <180 mg/dL all other times of the day Specimen Anatomical Collection Method Collection Time Receive d Time (Source) Location / / Volume Laterality Blood specimen 07/09/2017 10:08 7 (specimen) AM EST 10:08 AM EST Yuan Webber MD POINT OF CARE TEST ORDERABLE S Performing Organization Address City/State/[place] [address] POCT Glucose (07/09/2017 8:02 AM EST) P athologist Signature POC Glucose 178 65 - 199 [facility] mg/dL [facility] Comment: Supplemental ranges: <140 mg/dL before meals <180 mg/dL all other times of the day Specimen Anatomical Collection Method Collection Time Receive d Time (Source) Location / / Volume Laterality Blood specimen 07/09/2017 8:02 AM 017 8:02 (specimen) EST AM EST Yuan Webber MD POINT OF CARE TEST ORDERABLE S Performing Organization Address City/State/[place] [address] (ABNORMAL) BLOOD GAS 2 ARTERIAL (07/09/2017 5:37 AM EST) Analysis Performed At Patho logist Time Signature pH Art 7.36 7.35 - [facility] 7.45 [facility] pCO2 Art 38 35 - 45 [facility] mmHg [facility] pO2 Art 79 (L) 85 - 104 [facility] mmHg [facility] HCO3 Art 20.9 20.0 - [facility] 26.0 [facility] mmol/L [facility] LAB[facility] BE Art -4.6 (L) -3.0 - 3.0 [facility] mmol/L [facility] Hgb Blood Gas 10.5 (L) 13.7 - [facility] 16.5 gm/dL [facility] O2HB Art 93.8 (L) 94.0 - [facility] 97.0 % [facility] COHB Art 0.3 % [facility] Comment: Nonsmokers: 0.5-1.5% COHB Smokers: Variable, but usually less than 10% Toxic: 20-30% COHB Lethal: Greater than 60% COHB METHB Art 0.6 <=1.5 % [facility] Na Whole Blood 141 135 - 145 mmol/L [facility] K Whole Blood 4.5 3.5 - 5.0 mmol/L [facility] Comment: Please note: Patients with WBC >100,000 may have falsely elevated Potassium levels. Contact the Clinical Chemistry L aboratory if there are any questions. ICa Whole Blood 1.01 (L) 1.15 - 1.33 mmol/L [facility] Comment: Note: ??Total bilirubin higher [...] [facility] PF Ratio Art 198 [facility] Specimen Anatomical Collection Method Collection Time Receive d Time (Source) Location / / Volume Laterality Blood specimen 07/09/2017 5:37 AM 017 5:37 (specimen) EST AM EST Yuan Webber MD CHEMISTRY ORDERABLES Performing Organization Address City/State/ZIP [place] [address] POCT Glucose (07/09/2017 3:27 AM EST) P athologist Signature POC Glucose 192 65 - 199 [facility] mg/dL [facility] Comment: Supplemental ranges: <140 mg/dL before meals <180 mg/dL all other times of the day Specimen Anatomical Collection Method Collection Time Receive d Time (Source) Location / / Volume Laterality Blood specimen 07/09/2017 3:27 AM 017 3:27 (specimen) EST AM EST uYan Webber MD POINT OF CARE TEST ORDERABLE S Performing Organization Address City/State/ZIP [place] [address] (ABNORMAL) Basic Metabolic Panel (non-fasting) (07/09/2017 2:30 AM EST) P athologist Signature Glucose Lvl 179 65 - 199 [facility] mg/dL [facility] [...] 111 (H) 98 - 107 mmol/L [facility] CO2 21 (L) 22 - 31 mmol/L [facility] [...] or in patients with acute kidney failure. http://Anadys.cottonTracks/DHnkdep [email or web address].[email or web address]/DHMCnkf Specimen Anatomical Collection Method Collection Time Receive d Time (Source) Location / / Volume Laterality Blood specimen Venous Draw / 07/09/2017 2:30 AM 2016 2:42 (specimen) Unknown EST AM EST Resulting Agency Comment Spec In Lab Yuan Webber MD CHEMISTRY ORDERABLES Performing Organization Address City/State/ZIP [place] [address] (ABNORMAL) Potassium (07/09/2017 2:30 AM EST) P athologist Signature Potassium 5.1 (H) 3.5 - 5.0 [facility] mmol/L [facility] Comment: Please note: ??Patients with WBC [...] Webber MD CHEMISTRY ORDERABLES Performing Organization Address City/[facility]/ZIP [place] [address] (ABNORMAL) Hemogram (07/09/2017 2:30 AM EST) Analysis Performed At Patho logist Time Signature WBC 12.5 (H) 4.0 - 9.5 [place] [facility] x10(3)/[facility] LABORATORY RBC 3.38 (L) 4.58 - [place] [facility] 5.54 [facility] x10(6)/[facility] LABORATORY Hemoglobin 10.1 (L) 13.7 - [place] [facility] 16.5 gm/dL [facility] Hematocrit 30.3 (L) 40.5 - [facility] 48.5 % [facility] MCV 89.6 82.9 - [place] [facility] 93.1 [facility] LABORATORY MCH 29.9 27.5 - [place] [facility] 32.1 pg [facility] MCHC 33.3 32.0 - [place] [facility] 35.7 gm/dL [facility] Platelets 127 (L) 145 - 357 [place] x10(3)/[facility] LABORATORY RDWSD 49.3 (H) 36.0 - [place] [facility] 45.0 [facility] LABORATORY RDWCV 15.2 (H) 11.4 - [place] 13.8 % [facility] MPV 9.9 7.6 - 12.9 [facility] LABORATORY nRBC % Auto 0.0 % [facility] nRBC Abs Auto 0.000 0.000 - [place] [facility] 0.000 [facility] x10(3)/[facility] LABORATORY Specimen Anatomical Collection Method Collection Time Receive d Time (Source) Location / / Volume Laterality Blood specimen 07/09/2017 2:30 AM 017 2:41 (specimen) EST AM EST Resulting Agency Comment Spec In Lab Yuan Webber MD HEMATOLOGY ORDERABLES Performing Organization Address City/State/ZIP Code Phon e Number [address] POCT Glucose (07/09/2017 2:10 AM EST) athologist Signature POC Glucose 169 65 - [address] [facility]dL [facility] Comment: Supplemental ranges: <140 mg/dL before meals <180 mg/dL all other times of the day Specimen Anatomical Collection Method Collection Time Receive d Time (Source) Location / / Volume Laterality Blood specimen 07/09/2017 2:10 AM 017 2:10 (specimen) EST AM EST Yuan Webber MD POINT OF CARE TEST ORDERABLE S Performing Organization Address City/State/ZIP Code Phon e Number [address] POCT Glucose (07/09/2017 1:01 AM EST) athologist Signature POC Glucose 173 65 - 199 [facility] Comment: Supplemental ranges: <140 mg/dL before meals <180 mg/dL all other times of the day Specimen Anatomical Collection Method Collection Time Receive d Time (Source) Location / / Volume Laterality Blood specimen 07/09/2017 1:01 AM 017 1:01 (specimen) EST AM EST Yuan Webber MD POINT OF CARE TEST ORDERABLE S Performing Organization Address City/State/ZIP Code Phon e Number [address] Blood culture (07/09/2017 12:40 AM EST) [facility] [employer] Method Time Signature Blood Culture No growth [place] at 5 days. [facility] Specimen Anatomical Collection Method Collection Time Receive d Time (Source) Location / / Volume Laterality Blood specimen STRUCTURE OF RIGHT 07/09/2017 12:40 3:58 (specimen) UPPER LIMB / AM EST AM EST Unknown Resulting Agency Comment Spec In Lab Yuan Webber MD MICROBIOLOGY - BLOOD ORDERAB LES Performing Organization Address City/[facility]/ZIP Code Phon e Number [address] Blood culture (07/09/2017 12:30 AM EST) [facility] [employer] Method Time Signature Blood Culture No growth BARBARA DAVIS at 5 days. [facility] LABORATORY Specimen Anatomical Collection Method Collection Time Receive d Time (Source) Location / / Volume Laterality Blood specimen STRUCTURE OF LEFT 07/09/2017 12:30 06/25 3:59 (specimen) UPPER LIMB / AM EST AM EST Unknown Resulting Agency Comment Spec In Lab Yuan Webber MD MICROBIOLOGY - BLOOD ORDERAB LES Performing Organization Address City/[facility]/ZIP Code Phon e Number [address] (ABNORMAL) Urinalysis Microscopic Exam (07/09/2017 12:05 AM EST) Analysis Performed At Patho logist Time Signature RBC UA 32 (H) 0 - 3 /HPF [facility] LABORATORY WBC UA 5 (H) 0 - 3 /HPF [facility] Squam Epith UA <1 <=4 /HPF [facility] Hyaline Cast 17 (H) 0 - 2 /LPF [facility] LABORATORY Gran Cast UA 1 (H) <=0 /LPF [facility]OR[facility] Uric Ac Bianca Rare (A) [...] Address City/State/ZIP Code Phon e Number [address] (ABNORMAL) Urinalysis with reflex Culture (07/09/2017 12:05 AM EST) Patholo gist Method Time Signature Glucose UA Negative Negative [facility]dL [facility]OR[facility]ORY Protein UA 30 (A) Negative [facility]/dL [facility] LABOR[facility]ORY Bilirubin UA Negative Negative [facility] mg/dL [facility] LABORATORY Comment: Clinical correlation required for positi [...] LABORATORY Ketones UA Negative Negative mg/dL [facility] Nitrite UA Negative Negative [facility] LABOR[facility] Leukocytes UA Negative Negative [facility] LABORATORY Appearance UA Hazy (A) Clear [facility] LABORATORY Spec Chauncey UA 1.025 1.002 - 1.030 [facility] LABORATORY Color UA Yellow Yellow [facility] LABORATORY Culture Reflexed No [facility] LABORATORY Specimen (Source) Anatomical Collection Method Collection Time Re ceived Time Location / / Volume Laterality Urine specimen 07/09/2017 12:05 7 obtained via AM EST 12:39 AM EST indwelling urinary catheter (specimen) Resulting Agency Comment Spec In Lab Yuan Webber MD URINE ORDERABLES Performing Organization Address City/State/ZIP Code Phon e Number [place] [id number] [facility] [address] POCT Glucose (07/08/2017 11:01 PM EST) P athologist Signature POC Glucose 191 65 - 199 [facility] mg/dL [facility] LABORATORY Comment: Supplemental ranges: <140 mg/dL before meals <180 mg/dL all other times of the day Specimen Anatomical Collection Method Collection Time Receive d Time (Source) Location / / Volume Laterality Blood specimen 07/08/2017 11:01 7 (specimen) PM EST 11:01 PM EST Yuan Webber MD POINT OF CARE TEST ORDERABLE S Performing Organization Address City/State/[place] [address] POCT Glucose (07/08/2017 10:04 PM EST) P athologist Signature POC Glucose 198 65 - [address] [facility] mg/dL [facility] LABOR[facility]ORY Comment: Supplemental ranges: <140 mg/dL before meals <180 mg/dL all other times of the day Specimen Anatomical Collection Method Collection Time Receive d Time (Source) Location / / Volume Laterality Blood specimen 07/08/2017 10:04 7 (specimen) PM EST 10:04 PM EST Yuan Webber MD POINT OF CARE TEST ORDERABLE S Performing Organization Address City/State/[place] [address] Prepare Albumin 5% in 250 mL (07/08/2017 8:49 PM EST) P athologist Signature Dispensed? Yes [facility] LABOR[facility] Specimen Anatomical Collection Method Collection Time Receive d Time (Source) Location / / Volume Laterality Blood specimen No Charge / 07/08/2017 8:49 PM 017 8:51 (specimen) Unknown EST PM EST Resulting Agency Comment Spec In Lab [facility] ORDERABLES Performing Organization Address City/State/ZIP Code Phon e Number [address] POCT Glucose (07/08/2017 8:28 PM EST) P athologist Signature POC Glucose 195 65 - [address] [facility] mg/dL [facility] LABORATORY Comment: Supplemental ranges: <140 mg/dL before meals <180 mg/dL all other times of the day Specimen Anatomical Collection Method Collection Time Receive d Time (Source) Location / / Volume Laterality Blood specimen 07/08/2017 8:28 PM 017 8:28 (specimen) EST PM EST Yuan Webber MD POINT OF CARE TEST ORDERABLE S Performing Organization Address City/[facility]/[place] [address] (ABNORMAL) POCT Glucose (07/08/2017 7:13 PM EST) P athologist Signature POC Glucose 220 (H) 65 - 199 [facility] LAB[facility] Comment: Supplemental ranges: <140 mg/dL before meals <180 mg/dL all other times of the day Specimen Anatomical Collection Method Collection Time Receive d Time (Source) Location / / Volume Laterality Blood specimen 07/08/2017 7:13 PM 017 7:13 (specimen) EST PM EST Yuan Webber MD POINT OF CARE TEST ORDERABLE S Performing Organization Address City/[facility]/[place] [address] POCT Glucose (07/08/2017 5:04 PM EST) P athologist Signature POC Glucose 147 65 - 199 [facility] LAB[facility] Comment: Supplemental ranges: <140 mg/dL before meals <180 mg/dL all other times of the day Specimen Anatomical Collection Method Collection Time Receive d Time (Source) Location / / Volume Laterality Blood specimen 07/08/2017 5:04 PM 017 5:04 (specimen) EST PM EST Yuan Webber MD POINT OF CARE TEST ORDERABLE S Performing Organization Address City/State/[place] [address] (ABNORMAL) BLOOD GAS 2 ARTERIAL (07/08/2017 4:13 PM EST) Analysis Performed At Patho logist Time Signature pH Art 7.38 7.35 - [facility] 7.45 [facility] LABORATORY pCO2 Art 36 35 - 45 [facility] LABORATORY pO2 Art 91 85 - 104 [facility] LABORATORY HCO3 Art 20.9 20.0 - [facility] 26.0 [facility] mmol/L [facility] LABORATORY BE Art -4.2 (L) -3.0 - 3.0 [facility] mmol/L [facility] LABORATORY Hgb Blood Gas 11.7 (L) 13.7 - [facility] 16.5 gm/dL [facility] LABORATORY O2HB Art 95.1 94.0 - [facility] 97.0 % [facility] LABORATORY COHB Art 0.6 % [facility]OR[facility] Comment: Nonsmokers: 0.5-1.5% COHB Smokers: Variable, but usually less than 10% Toxic: 20-30% COHB Lethal: Greater than 60% COHB METHB Art 0.6 <=1.5 % [facility] LABORATORY Na Whole Blood 139 135 - 145 mmol/L [facility] K Whole Blood 4.2 3.5 - 5.0 mmol/L [facility] Comment: Please note: Patients with WBC >100,000 may have falsely elevated Potassium levels. Contact the Clinical Chemistry L aboratory if there are any questions. ICa Whole Blood 1.05 (L) 1.15 - 1.33 mmol/L [facility] LABORAT[facility] Comment: Note: ??Total bilirubin higher [...] [facility] PF Ratio Art 228 [facility] LABORATORY Specimen Anatomical Collection Method Collection Time Receive d Time (Source) Location / / Volume Laterality Blood specimen 07/08/2017 4:13 PM 017 4:13 (specimen) EST PM EST Yuan Webber MD CHEMISTRY ORDERABLES Performing Organization Address City/State/ZIP [place] [address] POCT Glucose (07/08/2017 4:01 PM EST) athologist Signature POC Glucose 148 65 - 199 [facility] mg/dL [facility] LABORATORY Comment: Supplemental ranges: <140 mg/dL before meals <180 mg/dL all other times of the day Specimen Anatomical Collection Method Collection Time Receive d Time (Source) Location / / Volume Laterality Blood specimen 07/08/2017 4:01 PM 017 4:01 (specimen) EST PM EST Yuan Webber MD POINT OF CARE TEST ORDERABLE S Performing Organization Address City/State/ZIP Code Phon e Number [address] POCT Glucose (07/08/2017 3:21 PM EST) athologist Signature POC Glucose 118 65 - 199 [facility] mg/dL [facility] LABORATORY Comment: Supplemental ranges: <140 mg/dL before meals <180 mg/dL all other times of the day Specimen Anatomical Collection Method Collection Time Receive d Time (Source) Location / / Volume Laterality Blood specimen 07/08/2017 3:21 PM 017 3:21 (specimen) EST PM EST Yuan Webber MD POINT OF CARE TEST ORDERABLE S Performing Organization Address City/[facility]/ZIP Code Phon e Number [address] POCT Glucose (07/08/2017 2:01 PM EST) athologist Signature POC Glucose 129 65 - 199 [facility] mg/dL [facility] LABORATORY Comment: Supplemental ranges: <140 mg/dL before meals <180 mg/dL all other times of the day Specimen Anatomical Collection Method Collection Time Receive d Time (Source) Location / / Volume Laterality Blood specimen 07/08/2017 2:01 PM 017 2:01 (specimen) EST PM EST Yuan Webber MD POINT OF CARE TEST ORDERABLE S Performing Organization Address City/State/[place] [address] POCT Glucose (07/08/2017 11:53 AM EST) athologist Signature POC Glucose 156 65 - 199 [facility] mg/dL [facility] LABORATORY Comment: Supplemental ranges: <140 mg/dL before meals <180 mg/dL all other times of the day Specimen Anatomical Collection Method Collection Time Receive d Time (Source) Location / / Volume Laterality Blood specimen 07/08/2017 11:53 7 (specimen) AM EST 11:53 AM EST Yuan Webber MD POINT OF CARE TEST ORDERABLE S Performing Organization Address City/State/ZIP Code Phon e Number [address] POCT Glucose (07/08/2017 11:04 AM EST) athologist Signature POC Glucose 181 65 - 199 [facility] Comment: Supplemental ranges: <140 mg/dL before meals <180 mg/dL all other times of the day Specimen Anatomical Collection Method Collection Time Receive d Time (Source) Location / / Volume Laterality Blood specimen 07/08/2017 11:04 7 (specimen) AM EST 11:04 AM EST Yuan Webber MD POINT OF CARE TEST ORDERABLE S Performing Organization Address City/[facility]/[place] [address] (ABNORMAL) POCT Glucose (07/08/2017 9:24 AM EST) athologist Signature POC Glucose 203 (H) 65 - 199 [facility]dL [facility] Comment: Supplemental ranges: <140 mg/dL before meals <180 mg/dL all other times of the day Specimen Anatomical Collection Method Collection Time Receive d Time (Source) Location / / Volume Laterality Blood specimen 07/08/2017 9:24 AM 017 9:24 (specimen) EST AM EST Yuan Webber MD POINT OF CARE TEST ORDERABLE S Performing Organization Address City/State/ZIP Code Phon e Number [address] APTT (07/08/2017 8:40 AM EST) athologist Signature PTT 33 25 - 35 sec [facility] [...] Organization Address City/State/[place] [address] (ABNORMAL) Prothrombin Time (07/08/2017 [...] Organization Address City/State/[place] [address] (ABNORMAL) POCT Glucose (07/08/2017 7:38 AM EST) athologist Signature POC Glucose 232 (H) 65 - 199 [facility] mg/dL [facility] LABORATORY Comment: Supplemental ranges: <140 mg/dL before meals <180 mg/dL all other times of the day Specimen Anatomical Collection Method Collection Time Receive d Time (Source) Location / / Volume Laterality Blood specimen 07/08/2017 7:38 AM 017 7:38 (specimen) EST AM EST Yuan Webber MD POINT OF CARE TEST ORDERABLE S Performing Organization Address City/[facility]/[place] [address] (ABNORMAL) POCT Glucose (07/08/2017 7:07 AM EST) P athologist Signature POC Glucose 234 (H) 65 - 199 [facility] mg/dL [facility] LABOR[facility] Comment: Supplemental ranges: <140 mg/dL before meals <180 mg/dL all other times of the day Specimen Anatomical Collection Method Collection Time Receive d Time (Source) Location / / Volume Laterality Blood specimen 07/08/2017 7:07 AM 017 7:07 (specimen) EST AM EST Yuan Webber MD POINT OF CARE TEST ORDERABLE S Performing Organization Address City/[facility]/[place] [address] (ABNORMAL) POCT Glucose (07/08/2017 6:04 AM EST) P athologist Signature POC Glucose 225 (H) 65 - 199 [facility] mg/dL [facility] LAB[facility] Comment: Supplemental ranges: <140 mg/dL before meals <180 mg/dL all other times of the day Specimen Anatomical Collection Method Collection Time Receive d Time (Source) Location / / Volume Laterality Blood specimen 07/08/2017 6:04 AM 017 6:04 (specimen) EST AM EST Yuan Webber MD POINT OF CARE TEST ORDERABLE S Performing Organization Address City/State/[place] [address] (ABNORMAL) POCT Glucose (07/08/2017 5:31 AM EST) P athologist Signature POC Glucose 216 (H) 65 - 199 [facility] mg/dL [facility] LAB[facility] Comment: Supplemental ranges: <140 mg/dL before meals <180 mg/dL all other times of the day Specimen Anatomical Collection Method Collection Time Receive d Time (Source) Location / / Volume Laterality Blood specimen 07/08/2017 5:31 AM 017 5:31 (specimen) EST AM EST Yuan Webber MD POINT OF CARE TEST ORDERABLE S Performing Organization Address City/State/[place] [address] (ABNORMAL) POCT Glucose (07/08/2017 4:52 AM EST) P athologist Signature POC Glucose 257 (H) 65 - 199 [facility] mg/dL [facility] LAB[facility] Comment: Supplemental ranges: <140 mg/dL before meals <180 mg/dL all other times of the day Specimen Anatomical Collection Method Collection Time Receive d Time (Source) Location / / Volume Laterality Blood specimen 07/08/2017 4:52 AM 017 4:52 (specimen) EST AM EST Daphne Shahid MD POINT OF CARE TEST ORDERABLE S Performing Organization Address City/[facility]/[place] [address] (ABNORMAL) BLOOD GAS 2 ARTERIAL (07/08/2017 4:04 AM EST) Analysis Performed At Patho logist Time Signature pH Art 7.30 (L) 7.35 - [facility] 7.45 [facility] LABORATORY pCO2 Art 41 35 - 45 [facility] mmHg [facility] LABORATORY pO2 Art 83 (L) 85 - 104 [facility] LABORATORY HCO3 Art 19.6 (L) 20.0 - [facility] 26.0 [facility] mmol/L HOSPITAL LABORATORY BE Art -6.8 (L) -3.0 - 3.0 [facility] mmol/L [facility] LABORATORY Hgb Blood Gas 12.2 (L) 13.7 - [facility] 16.5 gm/dL [facility] LABORATORY O2HB Art 93.5 (L) 94.0 - [facility] 97.0 % [facility] LABORATORY COHB Art 0.4 % [facility]OR[facility] Comment: Nonsmokers: 0.5-1.5% COHB Smokers: Variable, but usually less than 10% Toxic: 20-30% COHB Lethal: Greater than 60% COHB METHB Art 0.8 <=1.5 % [facility]OR[facility] Na Whole Blood 138 135 - 145 mmol/L [facility] K Whole Blood 4.4 3.5 - 5.0 mmol/L [facility] Comment: Please note: Patients with WBC >100,000 may have falsely elevated Potassium levels. Contact the Clinical Chemistry L aboratory if there are any questions. ICa Whole Blood 1.05 (L) 1.15 - 1.33 mmol/L [facility] LABOR[facility] Comment: Note: ??Total bilirubin higher than 20 m g/dL may lead to falsely low ionized calcium. CL Whole Blood 107 98 - 107 mmol/L [facility] LABORATORY Gluc Whole Bld 274 (H) 65 - 199 mg/dL [facility] LABORATORY Comment: Diabetes: >=200 mg/dL plus symp toms. Lactate WB 4.4 (Critical) 0.5 - 2.2 mmol/L [facility] LABORATORY Comment: Noted by instrument person. FIO2 Art 40 % [facility]OR[facility] PF Ratio Art 208 [facility] LABORATORY Specimen Anatomical Collection Method Collection Time Receive d Time (Source) Location / / Volume Laterality Blood specimen 07/08/2017 4:04 AM 017 4:04 (specimen) EST AM EST Daphne Shahid MD CHEMISTRY ORDERABLES Performing Organization Address City/[facility]/ZIP [place] [address] Scan, Peripheral Blood (07/08/2017 4:00 AM EST) P athologist Signature Plat Estimate Normal [facility] RBC Morphology Normal [facility]OR[facility] Specimen Anatomical Collection Method Collection Time Receive d Time (Source) Location / / Volume Laterality Blood specimen 07/08/2017 4:00 AM 017 4:09 (specimen) EST AM EST Resulting Agency Comment Spec In Lab Yuan Webber MD HEMATOLOGY ORDERABLES Performing Organization Address City/[facility]/ZIP [place] [address] (ABNORMAL) Differential, Automated (07/08/2017 4:00 AM EST) [facility] Method Time Signature Neutrophils % 85.4 % [facility] LABORATORY Neutr Abs (ANC) 16.07 (H) 1.70 - [facility] 6.10 [facility] x10(3)/[facility] L LABORATORY Lymphocytes % 3.5 % [facility] LABORATORY Lymphocytes Abs 0.6 (L) 0.9 - 3.2 [facility] x10(3)/[facility] LABORATORY Monocytes % 10.4 % [facility] LABORATORY Monocyte Abs 2.0 (H) 0.3 - 0.9 [facility] x10(3)/[facility] LABORATORY Eosinophils % 0.0 % [facility] LABORATORY Eosinophils Abs 0.0 0.0 - 0.4 [facility] x10(3)/[facility] LABORATORY Basophils % 0.1 % [facility] LABORATORY Basophils Abs 0.0 0.0 - 0.1 [facility] x10(3)/[facility] LABORATORY Immature Gran % 0.60 % [facility] [...] Address City/State/ZIP [place] [address] (ABNORMAL) Hemogram (07/08/2017 4:00 AM EST) Analysis Performed At Patho logist Time Signature WBC 18.8 (H) 4.0 - 9.[address] [facility] x10(3)/[facility] LABORATORY RBC 4.00 (L) 4.58 - [facility] 5.54 [facility] x10(6)/[facility] LABORATORY Hemoglobin 11.9 (L) 13.7 - [facility] 16[facility] gm/dL [facility]ORY Hematocrit 35.9 (L) 40.5 - [facility] 48.5 % [facility] LABORATORY MCV 89.8 82.9 - [facility] 93.1 [facility] LABORATORY MCH 29.8 27.5 - [facility] 32.1 pg [facility] LABORATORY MCHC 33.1 32.0 [facility] 35.7 gm/dL [facility] LABORATORY Platelets 232 145 - 357 [facility] x10(3)/[facility] LABORATORY RDWSD 47.6 (H) 36.0 - [facility] 45.0 [facility] LABORATORY RDWCV 14.5 (H) 11.4 - [facility] 13.8 % [facility] LABORATORY MPV 9.5 7.6 - 12.[address] [facility] nRBC % Auto 0.0 % [facility] LABORATORY nRBC Abs Auto 0.000 0.000 - [facility] 0.000 [facility] x10(3)/[facility] LABORATORY Specimen Anatomical Collection Method Collection Time Receive d Time (Source) Location / / Volume Laterality Blood specimen 07/08/2017 4:00 AM 017 4:09 (specimen) EST AM EST Resulting Agency Comment Spec In Lab Yuan Webber MD HEMATOLOGY ORDERABLES Performing Organization Address City/State/ZIP [place] [address] (ABNORMAL) Electrolytes panel (07/08/2017 4:00 AM EST) P athologist Signature Sodium 139 135 - 145 [facility] mmol/L [facility] LABORATORY Potassium 4.7 3.5 - 5.[address] [facility] mmol/L [facility] LAB[facility] Comment: result rechecked-JLK Please note: ??Patients with WBC >100,00 0 may have falsely elevated Potassium levels. ??For accurate Potassium quantif ication in these patients send serum separator tube (gold top) for subsequent determinations. ??Contact the Clinical Chemistry Laboratory if there are any qu estions. Chloride 104 98 - 107 mmol/L [facility]OR[facility] CO2 21 (L) 22 - 31 mmol/L [facility] [...] Address City/State/Z[place] [address] (ABNORMAL) Cardiac Enzymes (LEB/CGP) (07/08/2017 4:00 AM EST) P athologist Signature Troponin-T 1.88 (H) 0.00 - [facility] 0.00 ng/mL [facility] LAB[facility] Comment: The 99th percentile for Troponin [...] additional sample may be indicated. Reference: Third Novice Definition of Myocardial Infarction. Journal of the [place] [employer] 2012;60:1581-98 CK, Total 413 (H) 0 - 200 unit/L [facility] LABOR[facility] Comment: result rechecked-JLK Specimen Anatomical Collection Method Collection Time Receive d Time (Source) Location / / Volume Laterality Blood specimen 07/08/2017 4:00 AM 017 4:09 (specimen) EST AM EST Resulting Agency Comment Spec In Lab Yuan Webber MD CHEMISTRY ORDERABLES Performing Organization Address City/[facility]/ZIP Code Phon e Number [address] (ABNORMAL) Glucose, fasting (07/08/2017 4:00 AM EST) athologist Signature Glucose 287 (H) 65 - 99 [facility] Fasting mg/dL [facility] LABORATORY Comment: ?Fasting* Glucose Interpretive C riteria [...] of Diabetes Mellitus, Position Statement from the [place] [employer]. ??Diabete s Care, Volume 33, Supplement 1, Jul 2009 Specimen Anatomical Collection Method Collection Time Receive d Time (Source) Location / / Volume Laterality Blood specimen 07/08/2017 4:00 AM 017 4:09 (specimen) EST AM EST Resulting Agency Comment Spec In Lab Yuan Webber MD CHEMISTRY ORDERABLES Performing Organization Address City/[facility]/ZIP [facility] [place] [address] (ABNORMAL) Creatinine (07/08/2017 4:00 AM EST) Analysis Performed At Patho logist Time Signature Creatinine 1.55 (H) 0.80 - [facility] 1.[facility] mg/dL [facility] LABORATORY Estimated GFR 44 (L) >=60 [facility] LAB[facility] Comment: The reported eGFR should be multiplied b y 1.2 for patients. The MDRD is not an appropriate measure o f renal function for patients with body mass extremes or in patients with acute kidney failure. http://Anulex/DHnkdep http://Anulex/DHMCnkf Specimen Anatomical Collection Method Collection Time Receive d Time (Source) Location / / Volume Laterality Blood specimen 07/08/2017 4:00 AM 017 4:09 (specimen) EST AM EST Resulting Agency Comment Spec In Lab Yuan Webber MD CHEMISTRY ORDERABLES Performing Organization Address City/[facility] Phon e Number [address] BUN (07/08/2017 4:00 AM EST) P athologist Signature BUN 16 10 - 20 [facility] mg[facility]dL [facility] LABOR[facility]ORY Specimen Anatomical Collection Method Collection Time Receive d Time (Source) Location / / Volume Laterality Blood specimen 07/08/2017 4:00 AM 017 4:09 (specimen) EST AM EST Resulting Agency Comment Spec In Lab Yuan Webber MD CHEMISTRY ORDERABLES Performing Organization Address City/[facility] [place] [address] (ABNORMAL) POCT Glucose (07/08/2017 3:00 AM EST) P athologist Signature POC Glucose 273 (H) 65 - 199 [facility] Comment: Supplemental ranges: <140 mg/dL before meals <180 mg/dL all other times of the day Specimen Anatomical Collection Method Collection Time Receive d Time (Source) Location / / Volume Laterality Blood specimen 07/08/2017 3:00 AM 017 3:00 (specimen) EST AM EST Daphne Shahid MD POINT OF CARE TEST ORDERABLE S Performing Organization Address City/State/[place] [address] (ABNORMAL) POCT Glucose (07/08/2017 1:57 AM EST) athologist Signature POC Glucose 288 (H) 65 - 199 [facility] SU mg/dL [facility] Comment: Supplemental ranges: <140 mg/dL before meals <180 mg/dL all other times of the day Specimen Anatomical Collection Method Collection Time Receive d Time (Source) Location / / Volume Laterality Blood specimen 07/08/2017 1:57 AM 017 1:57 (specimen) EST AM EST Daphne Shahid MD POINT OF CARE TEST ORDERABLE S Performing Organization Address City/State/[place] [address] (ABNORMAL) POCT Glucose (07/08/2017 1:01 AM EST) athologist Signature POC Glucose 315 (H) 65 - 199 [facility]dL [facility] Comment: Supplemental ranges: <140 mg/dL before meals <180 mg/dL all other times of the day Specimen Anatomical Collection Method Collection Time Receive d Time (Source) Location / / Volume Laterality Blood specimen 07/08/2017 1:01 AM 017 1:01 (specimen) EST AM EST Daphne Shahid MD POINT OF CARE TEST ORDERABLE S Performing Organization Address City/State/[place] [address] (ABNORMAL) BLOOD GAS 2 ARTERIAL (07/08/2017 12:09 AM EST) athologist Signature pH Art 7.26 7.35 - [facility] (Critical) 7.45 [facility] Comment: Noted by instrument person. pCO2 Art 41 35 - 45 mmHg [...] [facility] LABOR[facility]ORY COHB Art 0.2 % [facility] Comment: Nonsmokers: 0.5-1.5% COHB Smokers: Variable, but usually less than 10% Toxic: 20-30% COHB Lethal: Greater than 60% COHB METHB Art 0.6 <=1.5 % [facility] Na Whole Blood 141 135 - 145 mmol/L [facility] K Whole Blood 3.5 3.5 - 5.0 mmol/L [facility] Comment: Please note: Patients with WBC >100,000 may have falsely elevated Potassium levels. Contact the Clinical Chemistry L aboratory if there are any questions. ICa Whole Blood 1.03 (L) 1.15 - 1.33 mmol/L [facility] Comment: Note: ??Total bilirubin higher than 20 m g/dL may lead to falsely low ionized calcium. CL Whole Blood 109 (H) 98 - 107 mmol/L [facility] Gluc Whole Bld 315 (H) 65 - 199 mg/dL [facility] Comment: Diabetes: >=200 mg/dL plus symp toms. Lactate WB 7.6 (Critical) 0.5 - 2.2 mmol/L [facility] Comment: Noted by instrument person. FIO2 Art 40 % [facility] PF Ratio Art 240 [facility] Specimen Anatomical Collection Method Collection Time Receive d Time (Source) Location / / Volume Laterality Blood specimen Arterial Draw / 07/08/2017 12:09 2016 5:31 (specimen) Unknown AM EST AM EST Resulting Agency Comment Spec In Lab Samy Maldonado MD CHEMISTRY ORDERABLES Performing Organization Address City/State/ZIP [place] [address] (ABNORMAL) POCT Glucose (07/07/2017 10:56 PM EST) athologist Signature POC Glucose 292 (H) 65 - 199 [facility] mg/dL [facility] Comment: Supplemental ranges: <140 mg/dL before meals <180 mg/dL all other times of the day Specimen Anatomical Collection Method Collection Time Receive d Time (Source) Location / / Volume Laterality Blood specimen 07/07/2017 10:56 7 (specimen) PM EST 10:56 PM EST Daphne Shahid MD POINT OF CARE TEST ORDERABLE S Performing Organization Address City/State/ZIP [place] [address] (ABNORMAL) BLOOD GAS 2 ARTERIAL (07/07/2017 10:04 PM EST) athologist Signature pH Art 7.22 7.35 - [facility] (Critical) 7.45 [facility] Comment: Noted by instrument person. pCO2 Art 42 35 - 45 mmHg [facility] pO2 Art 94 85 - 104 mmHg [facility] HCO3 Art 16.9 (L) 20.0 - 26.0 mmol/L [facility] BE Art -10.7 (L) -3.0 - 3.0 mmol/L [facility] Hgb Blood Gas 13.0 (L) 13.7 - 16.5 gm/dL [facility] O2HB Art 93.8 (L) 94.0 - 97.0 % [facility] COHB Art 0.7 % [facility] [...] 1.07 (L) 1.15 - 1.33 mmol/L [facility] Comment: Note: ??Total bilirubin higher than 20 m g/dL may lead to falsely low ionized calcium. CL Whole Blood 107 98 - 107 mmol/L [facility] Gluc Whole Bld 304 (H) 65 - 199 mg/dL [facility] Comment: Diabetes: >=200 mg/dL plus symp toms. Lactate WB 8.2 (Critical) 0.5 - 2.2 mmol/L [facility] Comment: Noted by instrument person. FIO2 Art 40 % [facility] PF Ratio Art 235 [facility] Specimen Anatomical Collection Method Collection Time Receive d Time (Source) Location / / Volume Laterality Blood specimen 07/07/2017 10:04 7 (specimen) PM EST 10:04 PM EST Daphne Shahid MD CHEMISTRY ORDERABLES Performing Organization Address City/State/ZIP Code Phon e Number [address] (ABNORMAL) Hemoglobin (07/07/2017 10:00 PM EST) P athologist Signature Hemoglobin 12.8 (L) 13.7 - [facility] 16.5 gm/dL [facility] Specimen Anatomical Collection Method Collection Time Receive d Time (Source) Location / / Volume Laterality Blood specimen 07/07/2017 10:00 7 (specimen) PM EST 10:13 PM EST Resulting Agency Comment Spec In Lab Yuan Webber MD HEMATOLOGY ORDERABLES Performing Organization Address City/State/ZIP Code Phon e Number [address] (ABNORMAL) Potassium (07/07/2017 10:00 PM EST) P athologist Signature Potassium 3.4 (L) 3.5 - 5.0 [facility] mmol/L [facility] Comment: Please note: ??Patients with WBC [...] Webber MD CHEMISTRY ORDERABLES Performing Organization Address City/[facility]/[place] [address] (ABNORMAL) POCT Glucose (07/07/2017 8:49 PM EST) P athologist Signature POC Glucose 241 (H) 65 - 199 [facility] mg/dL [facility] Comment: Supplemental ranges: <140 mg/dL before meals <180 mg/dL all other times of the day Specimen Anatomical Collection Method Collection Time Receive d Time (Source) Location / / Volume Laterality Blood specimen 07/07/2017 8:49 PM 017 8:49 (specimen) EST PM EST Daphne Shahid MD POINT OF CARE TEST ORDERABLE S Performing Organization Address City/[facility]/[place] [address] Prepare Albumin 5% in 250 mL (07/07/2017 8:03 PM EST) P athologist Signature Dispensed? Yes [facility] Specimen Anatomical Collection Method Collection Time Receive d Time (Source) Location / / Volume Laterality Blood specimen No Charge / 07/07/2017 8:03 PM 017 8:04 (specimen) Unknown EST PM EST Resulting Agency Comment Spec In Lab Michael BROWN BLOOD BANK ORDERABLES Performing Organization Address City/[facility]/[place] [address] EKG 12 Lead (07/07/2017 7:17 PM EST) Component Value Ref Range Test Analysis Performed Pathologis t Method Time At Signature Ventricular rate 75 BPM MUSE SYSTEM Atrial Rate 75 BPM MUSE SYSTEM P-R Interval 168 ms MUSE SYSTEM QRS Duration 104 ms MUSE SYSTEM Q-T Interval 462 ms MUSE SYSTEM QTC Calculated 515 ms MUSE SYSTEM (Bezet) Calculated P [place] 52 degrees MUSE SYSTEM Calculated R [place] -40 degrees MUSE SYSTEM Calculated T [place] 39 degrees MUSE SYSTEM INTERPRETATION Normal sinus [...] athologist Signature pH Art 7.21 7.35 - [facility] (Critical) 7.45 [facility] Comment: Noted by instrument person. pCO2 Art 50 (H) 35 - 45 [...] [facility] LAB[facility] COHB Art 0.5 % [facility] [...] [facility] Comment: Noted by instrument person. Please note: Patients with WBC >100,000 may have falsely elevated Potassium levels. Contact the Clinical Chemistry L aboratory if there are any questions. ICa Whole Blood 1.07 (L) 1.15 - 1.33 mmol/L [facility] Comment: Note: ??Total bilirubin higher than 20 m g/dL may lead to falsely low ionized calcium. CL Whole Blood 107 98 - 107 mmol/L [facility] Gluc Whole Bld 270 (H) 65 - 199 mg/dL [facility] Comment: Diabetes: >=200 mg/dL plus symp toms. Lactate WB 4.9 (Critical) 0.5 - 2.2 mmol/L [facility] Comment: Noted by instrument person. FIO2 Art 100 % [facility] PF Ratio Art 238 [facility] Specimen Anatomical Collection Method Collection Time Receive d Time (Source) Location / / Volume Laterality Blood specimen 07/07/2017 6:57 PM 017 6:57 (specimen) EST PM EST Daphne Shahid MD CHEMISTRY ORDERABLES Performing Organization Address City/State/Z[place] [address] (ABNORMAL) BLOOD GAS 2 ARTERIAL (07/07/2017 5:31 PM EST) P athologist Signature pH Art 7.29 7.35 - [facility] (Critical) 7.45 [facility] Comment: Noted by instrument person. pCO2 Art 48 (H) 35 - 45 mmHg [facility] pO2 Art 137 (H) 85 - 104 mmHg [facility] HCO3 Art 22.4 20.0 - 26.0 mmol/L [facility] BE Art -4.3 (L) -3.0 - 3.0 mmol/L [facility] Hgb Blood Gas 10.0 (L) 13.7 - 16.5 gm/dL [facility] O2HB Art 97.3 (H) 94.0 - 97.0 % [facility] COHB Art 0.3 % [facility] [...] 1.14 (L) 1.15 - 1.33 mmol/L [facility] Comment: Note: ??Total bilirubin higher [...] Address City/State/Z[place] [address] Fibrinogen (07/07/2017 5:30 PM EST) P athologist Signature Fibrinogen 224 180 - 510 [facility] mg/dL [facility] Comment: Called by: JEET, Read back [...] Perez MD HEMATOLOGY ORDERABLES Performing Organization Address City/[facility] Code Phon e Number [address] APTT (07/07/2017 5:30 PM EST) P athologist Signature PTT 30 25 - 35 sec [facility] [...] Perez MD HEMATOLOGY ORDERABLES Performing Organization Address [facility] [place] [address] (ABNORMAL) Prothrombin Time (07/07/2017 [...] Perez MD HEMATOLOGY ORDERABLES Performing Organization Address City/[facility]/ZIP [place] [address] (ABNORMAL) Hemogram (07/07/2017 5:30 PM EST) athologist Signature WBC 19.6 (H) 4.0 - 9.5 [facility] x10(3)/[facility] LABORATORY RBC 3.08 (L) 4.58 - [facility] 5.54 [facility] x10(6)/[facility] LABORATORY Hemoglobin 9.2 (L) 13.7 - [facility] 16.5 gm/dL [facility] Hematocrit 28.0 (L) 40.5 - [facility] 48.5 % [facility] Comment: This result has been called to MONICA MORAN by DONALD GROSSMAN on 07 07 2017 at 1759, and has been read back. MCV 90.9 82.9 - 93.1 [facility] LABORATORY MCH 29.9 27.5 - 32.1 pg [facility] LABORATORY MCHC 32.9 32.0 - 35.7 [...] nRBC Abs Auto 0.000 0.000 - 0.000 x10(3)/[facility] LABORATORY Specimen Anatomical Collection Method Collection Time Receive d Time (Source) Location / / Volume Laterality Blood specimen 07/07/2017 5:30 PM 017 5:34 (specimen) EST PM EST Resulting Agency Comment Spec In Lab Yifan Perez MD HEMATOLOGY ORDERABLES Performing Organization Address City/State/Z[place] [address] Prepare Platelets, Apheresis (07/07/2017 5:00 PM EST) P athologist Signature Dispensed? Yes [facility] LABORATORY Specimen Anatomical Collection Method Collection Time Receive d Time (Source) Location / / Volume Laterality Blood specimen 07/07/2017 5:00 PM 017 4:58 (specimen) EST PM EST Daphne Shahid MD BLOOD BANK ORDERABLES Performing Organization Address City/State/ZIP [place] [address] Platelet count (07/07/2017 4:55 PM EST) athologist Signature Platelets 177 145 - 357 [facility] x10(3)/[facility] LABORATORY Plat Immature 1.5 0.0 - 7.4 [facility] % % [facility] LAB[facility] Comment: Limitation of the Immature Platelet Frac tion (IPF)-May be less reliable when the platelet count is less than 29p101/u L due to statistical imprecision. The IPF [...] in a decreased state of production. References: [employer] The Clinical Value of the Immature Platelet Fraction (IPF) in Cell Recovery Document Number [id number] 12/2010 [employer] The Role of the Imm ature Platelet Fraction (IPF) in the Differential Diagnosis of Thrombocytopen ia, Document [id number] V0/07/08 P012/06 Specimen Anatomical Collection Method Collection Time Receive d Time (Source) Location / / Volume Laterality Blood specimen 07/07/2017 4:55 PM 017 5:13 (specimen) EST PM EST Resulting Agency Comment Spec In Lab Daphne Shahid MD HEMATOLOGY ORDERABLES Performing Organization Address City/[facility]/[place] [address] (ABNORMAL) Hemoglobin and Hematocrit, blood (07/07/2017 4:55 PM EST) P athologist Signature Hemoglobin 9.1 (L) 13.7 - [address] [facility] gm/dL [facility] Comment: This result has been called to MALKA MORAN by DONALD GROSSMAN on 07 07 2017 at 1734, and has been read back. Hematocrit 26.6 (L) 40.5 - 48.5 % [facility] Comment: This result has been [...] Shahid MD HEMATOLOGY ORDERABLES Performing Organization Address City/[facility]/[place] [address] (ABNORMAL) BLOOD GAS 2 ARTERIAL (07/07/2017 4:38 PM EST) Analysis Performed At Patho logist Time Signature pH Art 7.37 7.35 - [facility] 7.45 [facility] LABORATORY pCO2 Art 44 35 - 45 [facility] mmHg [facility]ORY pO2 Art 322 (H) 85 - 104 [facility] mmHg [facility] LAB[facility]ATORY HCO3 Art 24.9 20.0 - [facility] 26.0 [facility] mmol/L [facility] LABORATORY BE Art -0.4 -3.0 - 3.0 [facility] mmol/L [facility] LABORATORY Hgb Blood Gas 10.1 (L) 13.7 - [facility] 16.5 gm/dL [facility] LAB[facility]ORY O2HB Art 98.7 (H) 94.0 - [facility] 97.0 % [facility]ORY COHB Art 0.1 % [facility]ORY Comment: Nonsmokers: [...] 0.89 (Critical) 1.15 - 1.33 mmol/L [facility] Comment: Noted by instrument person. Note: ??Total bilirubin higher than 20 m [...] Address City/State/ZIP [place] [address] (ABNORMAL) BLOOD GAS 2 VENOUS (07/07/2017 4:06 PM EST) Analysis Performed At Patho logist Time Signature pH Cody 7.31 (L) 7.32 - [facility] 7.42 [facility] LABORATORY pCO2 [place] 47 41 - 51 [facility] LABORATORY pO2 [place] 53 (H) 25 - 40 [facility] LABORATORY HCO3 [place] 22.7 mmol/L [facility]OR[facility] BE Cody -3.7 mmol/L [facility] Hgb Blood Gas 10.2 (L) 13.7 - [facility] 16.5 gm/dL [facility] O2HB [place] 81.0 % [facility] COHB Cody 1.0 % [facility] Comment: Nonsmokers: [...] 0.90 (Critical) 1.15 - 1.33 mmol/L [facility] Comment: Noted by instrument person. Note: ??Total bilirubin higher than 20 m g/dL may lead to falsely low ionized calcium. CL Whole Blood 100 98 - 107 mmol/L [facility]ORATORY Gluc Whole Bld 231 (H) 65 - 199 mg/dL [facility] LABORATORY Comment: Diabetes: >=200 mg/dL plus symp toms Lactate WB 1.1 0.5 - 2.2 mmol/L [facility] LABORATORY BGas Source Venous [facility] LABORATORY Specimen Anatomical Collection Method Collection Time Receive d Time (Source) Location / / Volume Laterality Blood specimen 07/07/2017 4:06 PM 017 4:06 (specimen) EST PM EST Daphne Shahid MD CHEMISTRY ORDERABLES Performing Organization Address City/State/Z[place] [address] (ABNORMAL) BLOOD GAS 2 ARTERIAL (07/07/2017 4:05 PM EST) Analysis Performed At Patho logist Time Signature pH Art 7.36 7.35 - [facility] 7.45 [facility] LABORATORY pCO2 Art 40 35 - 45 [facility] LABORATORY pO2 Art 282 (H) 85 - 104 [facility] LABORATORY HCO3 Art 22.1 20.0 - [facility] 26.0 [facility] mmol/L [facility] LABORATORY BE Art -3.4 (L) -3.0 - 3.0 [facility] mmol/L [facility] LABORATORY Hgb Blood Gas 10.2 (L) 13.7 - [facility] 16.5 gm/dL [facility] LABOR[facility]ORY O2HB Art 98.4 (H) 94.0 - [facility] 97.0 % [facility] COHB Art 0.3 % [facility] [...] 0.86 (Critical) 1.15 - 1.33 mmol/L [facility] Comment: Noted by instrument person. Note: ??Total bilirubin higher than 20 m [...] Address City/State/ZIP [place] [address] (ABNORMAL) BLOOD GAS 2 ARTERIAL (07/07/2017 2:29 PM EST) Analysis Performed At Patho logist Time Signature pH Art 7.43 7.35 - [facility] 7.45 [facility] LAB[facility]ORY pCO2 Art 36 35 - 45 [facility] LABORATORY pO2 Art 221 (H) 85 - 104 [facility] LABORATORY HCO3 Art 23.2 20.0 - [facility] 26.0 [facility] mmol/L [facility] LABORATORY BE Art -1.2 -3.0 - 3.0 [facility] mmol/L [facility] LAB[facility]ORY Hgb Blood Gas 13.9 13.7 - [facility] 16.5 gm/dL [facility] O2HB Art 97.8 (H) 94.0 - [facility] 97.0 % [facility] LAB[facility]ORY COHB Art 1.1 % [facility] Comment: Nonsmokers: 0.5-1.5% COHB Smokers: Variable, but usually less than 10% Toxic: 20-30% COHB Lethal: Greater than 60% COHB METHB Art 0.3 <=1.5 % [facility] LABORATORY Na Whole Blood 139 135 - 145 mmol/L [facility] K Whole Blood 4.0 3.5 - 5.0 mmol/L [facility] Comment: Please note: Patients with WBC >100,000 may have falsely elevated Potassium levels. Contact the Clinical Chemistry L aboratory if there are any questions. ICa Whole Blood 1.11 (L) 1.15 - 1.33 mmol/L [facility] Comment: Note: ??Total bilirubin higher than 20 m g/dL may lead to falsely low ionized calcium. CL Whole Blood 104 98 - 107 mmol/L [facility] Gluc Whole Bld 184 65 [...] Organization Address City/State/[place] [address] Prepare Coag Factors (Non-Hemophilia) (07/07/2017 1:25 PM EST) P athologist Signature Dispensed? Yes [facility]OR[facility]ORY Specimen Anatomical Collection Method Collection Time Receive d Time (Source) Location / / Volume Laterality Blood specimen 07/07/2017 1:25 PM 017 1:21 (specimen) EST PM EST Daphne Shahid MD BLOOD BANK ORDERABLES Performing Organization Address City/State/ZIP Code Phon e Number [address] Prepare RBC (07/07/2017 1:10 PM EST) P athologist Signature Dispensed? Yes [facility]OR[facility]ORY Specimen Anatomical Collection Method Collection Time Receive d Time (Source) Location / / Volume Laterality Blood specimen 07/07/2017 1:10 PM 017 1:05 (specimen) EST PM EST Daphne Shahid MD BLOOD BANK ORDERABLES Performing Organization Address City/State/[place] [address] POCT Glucose (07/07/2017 11:56 AM EST) athologist Signature POC Glucose 188 65 - 199 [facility] SU mg/dL [facility] Comment: Supplemental ranges: <140 mg/dL before meals <180 mg/dL all other times of the day Specimen Anatomical Collection Method Collection Time Receive d Time (Source) Location / / Volume Laterality Blood specimen 07/07/2017 11:56 7 (specimen) AM EST 11:56 AM EST Daphne Shahid MD POINT OF CARE TEST ORDERABLE S Performing Organization Address City/[facility]/[place] [address] POCT Glucose (07/07/2017 11:05 AM EST) athologist Signature POC Glucose 168 65 - 199 [facility] Comment: Supplemental ranges: <140 mg/dL before meals <180 mg/dL all other times of the day Specimen Anatomical Collection Method Collection Time Receive d Time (Source) Location / / Volume Laterality Blood specimen 07/07/2017 11:05 7 (specimen) AM EST 11:05 AM EST Daphne Shahid MD POINT OF CARE TEST ORDERABLE S Performing Organization Address City/State/ZIP Code Phon e Number [address] POCT Glucose (07/07/2017 10:02 AM EST) P athologist Signature POC Glucose 191 65 - 199 [facility] mg/dL [facility] Comment: Supplemental ranges: <140 mg/dL before meals <180 mg/dL all other times of the day Specimen Anatomical Collection Method Collection Time Receive d Time (Source) Location / / Volume Laterality Blood specimen 07/07/2017 10:02 7 (specimen) AM EST 10:02 AM EST Daphne Shahid MD POINT OF CARE TEST ORDERABLE S Performing Organization Address City/State/ZIP Code Phon e Number [address] POCT Glucose (07/07/2017 7:53 AM EST) athologist Signature POC Glucose 178 65 - 199 [facility] mg/dL [facility] Comment: Supplemental ranges: <140 mg/dL before meals <180 mg/dL all other times of the day Specimen Anatomical Collection Method Collection Time Receive d Time (Source) Location / / Volume Laterality Blood specimen 07/07/2017 7:53 AM 017 7:53 (specimen) EST AM EST Daphne Shahid MD POINT OF CARE TEST ORDERABLE S Performing Organization Address City/State/ZIP Code Phon e Number [address] POCT Glucose (07/07/2017 7:03 AM EST) athologist Signature POC Glucose 188 65 - 199 [facility] mg/dL [facility] LABORATORY Comment: Supplemental ranges: <140 mg/dL before meals <180 mg/dL all other times of the day Specimen Anatomical Collection Method Collection Time Receive d Time (Source) Location / / Volume Laterality Blood specimen 07/07/2017 7:03 AM 017 7:03 (specimen) EST AM EST Daphne Shahid MD POINT OF CARE TEST ORDERABLE S Performing Organization Address City/State/[place] [address] (ABNORMAL) POCT Glucose (07/07/2017 6:17 AM EST) athologist Signature POC Glucose 207 (H) 65 - 199 [facility] LABORATORY Comment: Supplemental ranges: <140 mg/dL before meals <180 mg/dL all other times of the day Specimen Anatomical Collection Method Collection Time Receive d Time (Source) Location / / Volume Laterality Blood specimen 07/07/2017 6:17 AM 017 6:17 (specimen) EST AM EST Daphne Shahid MD POINT OF CARE TEST ORDERABLE S Performing Organization Address City/[facility]/ZIP Code Phon e Number [address] Differential, Automated (07/07/2017 5:15 AM EST) athologist Signature Neutrophils % 69.7 % [facility] LABORATORY Neutr Abs (ANC) 5.32 1.70 - [facility] 6.10 [facility] x10(3)/[facility] LABORATORY Lymphocytes % 16.3 % [facility] LABORATORY Lymphocytes Abs 1.2 0.9 - 3.2 [facility] x10(3)/[facility] LABORATORY Monocytes % 10.5 % [facility] LABORATORY Monocyte Abs 0.8 0.3 - 0.9 [facility] x10(3)/[facility] LABORATORY Eosinophils % 2.5 % [facility] LABORATORY Eosinophils Abs 0.2 0.0 - 0.4 [facility] x10(3)/[facility] LABORATORY Basophils % 0.7 % [facility] LABORATORY Basophils Abs 0.0 0.0 - 0.1 [facility] x10(3)/[facility] LABORATORY Immature Gran % 0.30 % [facility] [...] Melisa Gran Abs 0.02 0.00 - 0.04 x10(3)/[facility] LABORATORY Specimen Anatomical Collection Method Collection Time Receive d Time (Source) Location / / Volume Laterality Blood specimen 07/07/2017 5:15 AM 017 5:34 (specimen) EST AM EST Resulting Agency Comment Spec In Lab Daphne Shahid MD HEMATOLOGY ORDERABLES Performing Organization Address City/State/[place] [address] (ABNORMAL) Hemogram (07/07/2017 5:15 AM EST) Analysis Performed At Patho logist Time Signature WBC 7.6 4.0 - 9.5 [facility] x10(3)/[facility] LABORATORY RBC 4.82 4.58 - [facility] 5.54 [facility] x10(6)/[facility] Hemoglobin 14.4 13.7 - [facility] 16.5 gm/dL [facility] Hematocrit 42.1 40.5 - [facility] 48.5 % [facility] LABORATORY MCV 87.3 82.9 - [facility] 93.1 [facility] LABORATORY MCH 29.9 27.5 - [facility] 32.1 pg [facility] LABORATORY MCHC 34.2 32.0 [facility] 35.7 gm/dL [facility] LABORATORY Platelets 188 145 - 357 [facility] x10(3)/[facility] LABORATORY RDWSD 45.1 (H) 36.0 - [facility] 45.0 [facility] RDWCV 14.3 (H) 11.4 - [facility] SU 13.8 % [facility] LABORATORY MPV 9.4 7.6 - 12.9 [facility] LABORATORY nRBC % Auto 0.0 % [facility] LABORATORY nRBC Abs Auto 0.000 0.000 - [facility] 0.000 [facility] x10(3)/[facility] LABORATORY Specimen Anatomical Collection Method Collection Time Receive d Time (Source) Location / / Volume Laterality Blood specimen 07/07/2017 5:15 AM 017 5:34 (specimen) EST AM EST Resulting Agency Comment Spec In Lab Daphne Shahid MD HEMATOLOGY ORDERABLES Performing Organization Address City/[facility]/[place] [address] (ABNORMAL) APTT (07/07/2017 5:15 AM EST) P athologist Signature PTT 69 (H) 25 - 35 sec [facility] [...] Shahid MD HEMATOLOGY ORDERABLES Performing Organization Address City/[facility]/[place] [address] Magnesium (07/07/2017 5:15 AM EST) P athologist Signature Magnesium 0.94 0.69 - 1.07 [facility] mmol/L [facility] LABORATORY Specimen Anatomical Collection Method Collection Time Receive d Time (Source) Location / / Volume Laterality Blood specimen 07/07/2017 5:15 AM 017 5:34 (specimen) EST AM EST Resulting Agency Comment Spec In Lab Daphne Shahid MD CHEMISTRY ORDERABLES Performing Organization Address City/[facility]/[place] [address] (ABNORMAL) Basic Metabolic Panel (non-fasting) (07/07/2017 5:15 AM EST) athologist Signature Glucose Lvl 203 (H) 65 - 199 [facility] mg/dL [facility] [...] or in patients with acute kidney failure. [email or web address].[email or web address]/DHnkdep http://Anulex/DHMCnkf Specimen Anatomical Collection Method Collection Time Receive d Time (Source) Location / / Volume Laterality Blood specimen 07/07/2017 5:15 AM 017 5:34 (specimen) EST AM EST Resulting Agency Comment Spec In Lab Daphne Shahid MD CHEMISTRY ORDERABLES Performing Organization Address City/State/Z[place] [address] (ABNORMAL) Cardiac Enzymes (LEB/CGP) (07/07/2017 5:15 AM EST) athologist Signature Troponin-T 2.07 (H) 0.00 - [facility] 0.00 ng/mL [facility] LABORATORY Comment: The 99th percentile for Troponin [...] additional sample may be indicated. Reference: Third Novice Definition of Myocardial Infarction. Journal of the [employer] College of Cardiology 2012;60:1581-98 CK, Total 88 0 - 200 unit/L [facility] LABORATORY Specimen Anatomical Collection Method Collection Time Receive d Time (Source) Location / / Volume Laterality Blood specimen 07/07/2017 5:15 AM 017 5:34 (specimen) EST AM EST Resulting Agency Comment Spec In Lab Daphne Shahid MD CHEMISTRY ORDERABLES Performing Organization Address City/State/ZIP [place] [address] POCT Glucose (07/07/2017 5:01 AM EST) P athologist Signature POC Glucose 182 65 - 199 [facility] mg/dL [facility] LABORATORY Comment: Supplemental ranges: <140 mg/dL before meals <180 mg/dL all other times of the day Specimen Anatomical Collection Method Collection Time Receive d Time (Source) Location / / Volume Laterality Blood specimen 07/07/2017 5:01 AM 017 5:01 (specimen) EST AM EST Daphne Shahid MD POINT OF CARE TEST ORDERABLE S Performing Organization Address City/State/ZIP Code Phon e Number [address] POCT Glucose (07/07/2017 4:08 AM EST) athologist Signature POC Glucose 199 65 - 199 [facility]dL [facility] LABORATORY Comment: Supplemental ranges: <140 mg/dL before meals <180 mg/dL all other times of the day Specimen Anatomical Collection Method Collection Time Receive d Time (Source) Location / / Volume Laterality Blood specimen 07/07/2017 4:08 AM 017 4:08 (specimen) EST AM EST Daphne Shahid MD POINT OF CARE TEST ORDERABLE S Performing Organization Address City/[facility]/[place] [address] POCT Glucose (07/07/2017 3:03 AM EST) athologist Signature POC Glucose 188 65 - 199 [facility] mg[facility]dL [facility] LABORATORY Comment: Supplemental ranges: <140 mg/dL before meals <180 mg/dL all other times of the day Specimen Anatomical Collection Method Collection Time Receive d Time (Source) Location / / Volume Laterality Blood specimen 07/07/2017 3:03 AM 017 3:03 (specimen) EST AM EST Daphne Shahid MD POINT OF CARE TEST ORDERABLE S Performing Organization Address City/State/[place] [address] (ABNORMAL) POCT Glucose (07/07/2017 2:08 AM EST) athologist Signature POC Glucose 200 (H) 65 - 199 [facility] mg[facility]dL [facility] LABORATORY Comment: Supplemental ranges: <140 mg/dL before meals <180 mg/dL all other times of the day Specimen Anatomical Collection Method Collection Time Receive d Time (Source) Location / / Volume Laterality Blood specimen 07/07/2017 2:08 AM 017 2:08 (specimen) EST AM EST Daphne Shahid MD POINT OF CARE TEST ORDERABLE S Performing Organization Address City/State/[place] [address] (ABNORMAL) POCT Glucose (07/07/2017 1:31 AM EST) P athologist Signature POC Glucose 209 (H) 65 - [address] [facility] mg/dL [facility] LABORATORY Comment: Supplemental ranges: <140 mg/dL before meals <180 mg/dL all other times of the day Specimen Anatomical Collection Method Collection Time Receive d Time (Source) Location / / Volume Laterality Blood specimen 07/07/2017 1:31 AM 017 1:31 (specimen) EST AM EST Daphne Shahid MD POINT OF CARE TEST ORDERABLE S Performing Organization Address City/State/[place] [address] XR Chest PA or [...] Glucose 161 65 - 199 [facility] mg/dL [facility] LABORATORY Comment: Supplemental ranges: <140 mg/dL before meals <180 mg/dL all other times of the day Specimen Anatomical Collection Method Collection Time Receive d Time (Source) Location / / Volume Laterality Blood specimen 07/07/2017 12:07 7 (specimen) AM EST 12:07 AM EST Daphne Shahid MD POINT OF CARE TEST ORDERABLE S Performing Organization Address City/[facility]/[place] [address] (ABNORMAL) APTT (07/07/2017 12:00 AM EST) athologist Signature PTT 103 (H) 25 - 35 sec [facility] [...] Organization Address City/State/[place] [address] POCT Glucose (07/06/2017 9:55 PM EST) athologist Signature POC Glucose 109 65 - [address] [facility] mg/dL [facility] LABORATORY Comment: Supplemental ranges: <140 mg/dL before meals <180 mg/dL all other times of the day Specimen Anatomical Collection Method Collection Time Receive d Time (Source) Location / / Volume Laterality Blood specimen 07/06/2017 9:55 PM 017 9:55 (specimen) EST PM EST Daphne Shahid MD POINT OF CARE TEST ORDERABLE S Performing Organization Address City/State/ZIP Code Phon e Number [address] POCT Glucose (07/06/2017 9:04 PM EST) athologist Signature POC Glucose 120 65 - 199 [facility] mg[facility]dL [facility] LABORATORY Comment: Supplemental ranges: <140 mg/dL before meals <180 mg/dL all other times of the day Specimen Anatomical Collection Method Collection Time Receive d Time (Source) Location / / Volume Laterality Blood specimen 07/06/2017 9:04 PM 017 9:04 (specimen) EST PM EST Daphne Shahid MD POINT OF CARE TEST ORDERABLE S Performing Organization Address City/[facility]/[place] [address] POCT Glucose (07/06/2017 7:45 PM EST) athologist Signature POC Glucose 158 65 - 199 [facility] mg[facility]dL [facility] LABORATORY Comment: Supplemental ranges: <140 mg/dL before meals <180 mg/dL all other times of the day Specimen Anatomical Collection Method Collection Time Receive d Time (Source) Location / / Volume Laterality Blood specimen 07/06/2017 7:45 PM 017 7:45 (specimen) EST PM EST Daphne Shahid MD POINT OF CARE TEST ORDERABLE S Performing Organization Address City/[facility]/[place] [address] Potassium (07/06/2017 7:40 PM EST) athologist Signature Potassium 3.9 3.5 - 5.0 [facility] mmol/L [facility] LABORATORY Comment: Please note: ??Patients with WBC [...] Shahid MD CHEMISTRY ORDERABLES Performing Organization Address City/[facility]/Z[place] [address] (ABNORMAL) Cardiac Enzymes (LEB/CGP) (07/06/2017 7:40 PM EST) athologist Signature Troponin-T 2.27 (H) 0.00 - [facility] 0.00 ng/mL [facility] LABORATORY Comment: The 99th percentile for Troponin [...] additional sample may be indicated. Reference: Third Novice Definition of Myocardial Infarction. Journal of the [employer] College of Cardiology 2012;60:1581-98 CK, Total 93 0 - 200 unit/L [facility] LABORATORY Specimen Anatomical Collection Method Collection Time Receive d Time (Source) Location / / Volume Laterality Blood specimen 07/06/2017 7:40 PM 017 7:52 (specimen) EST PM EST Resulting Agency Comment Spec In Lab Daphne Shahid MD CHEMISTRY ORDERABLES Performing Organization Address City/State/[place] [address] (ABNORMAL) POCT Glucose (07/06/2017 7:13 PM EST) athologist Signature POC Glucose 200 (H) 65 - 199 [facility] mg/dL [facility] LABORATORY Comment: Supplemental ranges: <140 mg/dL before meals <180 mg/dL all other times of the day Specimen Anatomical Collection Method Collection Time Receive d Time (Source) Location / / Volume Laterality Blood specimen 07/06/2017 7:13 PM 017 7:13 (specimen) EST PM EST Daphne Shahid MD POINT OF CARE TEST ORDERABLE S Performing Organization Address City/State/ZIP Code [facility] [place] [place] [address] (ABNORMAL) APTT (07/06/2017 6:15 PM EST) athologist [facility] PTT 94 (H) 25 - 35 sec [facility] [...] Organization Address City/State/[place] [address] (ABNORMAL) POCT Glucose (07/06/2017 6:03 PM EST) athologist Signature POC Glucose 236 (H) 65 - 199 [facility] mg/dL [facility] LABORATORY Comment: Supplemental ranges: <140 mg/dL before meals <180 mg/dL all other times of the day Specimen Anatomical Collection Method Collection Time Receive d Time (Source) Location / / Volume Laterality Blood specimen 07/06/2017 6:03 PM 017 6:03 (specimen) EST PM EST Daphne Shahid MD POINT OF CARE TEST ORDERABLE S Performing Organization Address City/State/[place] [address] (ABNORMAL) POCT Glucose (07/06/2017 5:01 PM EST) P athologist Signature POC Glucose 235 (H) 65 - 199 [facility] mg/dL [facility] LABORATORY Comment: Supplemental ranges: <140 mg/dL before meals <180 mg/dL all other times of the day Specimen Anatomical Collection Method Collection Time Receive d Time (Source) Location / / Volume Laterality Blood specimen 07/06/2017 5:01 PM 017 5:01 (specimen) EST PM EST Daphne Shahid MD POINT OF CARE TEST ORDERABLE S Performing Organization Address City/[facility]/[place] [address] (ABNORMAL) POCT Glucose (07/06/2017 4:06 PM EST) P athologist Signature POC Glucose 202 (H) 65 - 199 [facility] mg/dL [facility] LABORATORY Comment: Supplemental ranges: <140 mg/dL before meals <180 mg/dL all other times of the day Specimen Anatomical Collection Method Collection Time Receive d Time (Source) Location / / Volume Laterality Blood specimen 07/06/2017 4:06 PM 017 4:06 (specimen) EST PM EST Daphne Shahid MD POINT OF CARE TEST ORDERABLE S Performing Organization Address City/State/[place] [address] POCT Glucose (07/06/2017 2:59 PM EST) P athologist Signature POC Glucose 178 65 - 199 [facility] mg/dL [facility] LABORATORY Comment: Supplemental ranges: <140 mg/dL before meals <180 mg/dL all other times of the day Specimen Anatomical Collection Method Collection Time Receive d Time (Source) Location / / Volume Laterality Blood specimen 07/06/2017 2:59 PM 017 2:59 (specimen) EST PM EST Daphne Shahid MD POINT OF CARE TEST ORDERABLE S Performing Organization Address City/[facility]/ZIP Code Phon e Number [address] (ABNORMAL) Cardiac Enzymes (LEB/CGP) (07/06/2017 2:10 PM EST) P athologist Signature Troponin-T 2.34 (H) 0.00 - [facility] 0.00 ng/mL [facility] LABORATORY Comment: The 99th percentile for Troponin [...] additional sample may be indicated. Reference: Third Novice Definition of Myocardial Infarction. Journal of the [employer] College of Cardiology 2012;60:1581-98 CK, Total 101 0 - 200 unit/L [facility] LABORATORY Specimen Anatomical Collection Method Collection Time Receive d Time (Source) Location / / Volume Laterality Blood specimen 07/06/2017 2:10 PM 017 2:26 (specimen) EST PM EST Resulting Agency Comment Spec In Lab Daphne Shahid MD CHEMISTRY ORDERABLES Performing Organization Address City/[facility]/[place] [address] POCT Glucose (07/06/2017 2:08 PM EST) P athologist Signature POC Glucose 192 65 - 199 [facility] mg/dL [facility] LABORATORY Comment: Supplemental ranges: <140 mg/dL before meals <180 mg/dL all other times of the day Specimen Anatomical Collection Method Collection Time Receive d Time (Source) Location / / Volume Laterality Blood specimen 07/06/2017 2:08 PM 017 2:08 (specimen) EST PM EST Daphne Shahid MD POINT OF CARE TEST ORDERABLE S Performing Organization Address City/State/ZIP Code Phon e Number [address] POCT Glucose (07/06/2017 1:04 PM EST) athologist Signature POC Glucose 162 65 - 199 [facility] mg/dL [facility] LABORATORY Comment: Supplemental ranges: <140 mg/dL before meals <180 mg/dL all other times of the day Specimen Anatomical Collection Method Collection Time Receive d Time (Source) Location / / Volume Laterality Blood specimen 07/06/2017 1:04 PM 017 1:04 (specimen) EST PM EST Daphne Shahid MD POINT OF CARE TEST ORDERABLE S Performing Organization Address City/State/ZIP Code Phon e Number [address] POCT Glucose (07/06/2017 12:05 PM EST) athologist Signature POC Glucose 196 65 - 199 [facility] mg/dL [facility] LABORATORY Comment: Supplemental ranges: <140 mg/dL before meals <180 mg/dL all other times of the day Specimen Anatomical Collection Method Collection Time Receive d Time (Source) Location / / Volume Laterality Blood specimen 07/06/2017 12:05 7 (specimen) PM EST 12:05 PM EST Daphne Shahid MD POINT OF CARE TEST ORDERABLE S Performing Organization Address City/State/[place] [address] EKG 12 Lead (07/06/2017 12:00 PM EST) Component Value Ref Range Test Analysis Performed Pathologis t Method Time At Signature Ventricular rate 91 BPM MUSE SYSTEM Atrial Rate 91 BPM MUSE SYSTEM P-R Interval 140 ms MUSE SYSTEM QRS Duration 94 ms MUSE SYSTEM Q-T Interval 394 ms MUSE SYSTEM QTC Calculated 484 ms MUSE SYSTEM (Bezet) Calculated P [place] 36 degrees MUSE SYSTEM Calculated R [place] -19 degrees MUSE SYSTEM Calculated T [place] 104 degrees MUSE SYSTEM INTERPRETATION Normal sinus rhythm MUSE SYSTEM 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) ST & T wave abnormality, consider lateral ischemia Abnormal ECG When compared with ECG of 05-JUL-2017 20:39, No significant change was found Confirmed by MD Luci, Taurus Braun ([id number]) on 07/06/2017 5:07:33 PM Specimen Anatomical Collection Method Collection Time Receive d Time (Source) Location / / Volume Laterality 07/06/2017 12:00 07/06/2017 5:07 PM EST PM EST Daphne Shahid MD ECG ORDERABLES Performing Organization Address City/[facility]/ZIP Code Phon e Number MUSE SYSTEM ABORH Recheck Status (07/06/2017 12:00 PM EST) [facility] Method Time Signature ABORH Type Completed [facility] LABORATORY Specimen Anatomical Collection Method Collection Time Receive d Time (Source) Location / / Volume Laterality Blood specimen 07/06/2017 12:00 7 (specimen) PM EST 12:24 PM EST Resulting Agency Comment Spec In Lab Daphne Shahid MD BLOOD BANK ORDERABLES Performing Organization Address City/[facility]/ZIP [place] [address] Antibody screen (07/06/2017 12:00 PM EST) [facility] [employer] Method Time Signature Ab Screen Negative [facility] LABORATORY Expires at 07/09/2017 [facility] [id number] on: [facility] LABORATORY Specimen Anatomical Collection Method Collection Time Receive d Time (Source) Location / / Volume Laterality Blood specimen 07/06/2017 12:00 7 (specimen) PM EST 12:24 PM EST Resulting Agency Comment Spec In Lab Daphne Shahid MD BLOOD BANK ORDERABLES Performing Organization Address City/[facility]/ZIP [place] [address] ABO/Rh Typing (07/06/2017 12:00 [...] City/State/ZIP Code Phon e Number [place] [phone] Prothrombin Time (07/06/2017 11:24 AM EST) athologist Signature PT 13.3 11.8 - 14.0 [facility] LABORATORY INR 1.0 0.9 - 1.1 [facility] LABORATORY [...] City/State/ZIP Code Phon e Number [place] [phone] (ABNORMAL) APTT (07/06/2017 11:24 AM EST) P athologist Signature PTT 52 (H) 25 - 35 sec [facility] [...] Address City/State/ZIP Code Phon e Number [address] POCT Glucose (07/06/2017 11:02 AM EST) athologist Signature POC Glucose 187 65 - 199 [facility] mg/dL [facility] LABORATORY Comment: Supplemental ranges: <140 mg/dL before meals <180 mg/dL all other times of the day Specimen Anatomical Collection Method Collection Time Receive d Time (Source) Location / / Volume Laterality Blood specimen 07/06/2017 11:02 7 (specimen) AM EST 11:02 AM EST Daphne Shahid MD POINT OF CARE TEST ORDERABLE S Performing Organization Address City/State/ZIP Code Phon e Number [address] POCT Glucose (07/06/2017 10:18 AM EST) athologist Signature POC Glucose 193 65 - 199 [facility] mg/dL [facility] LABORATORY Comment: Supplemental ranges: <140 mg/dL before meals <180 mg/dL all other times of the day Specimen Anatomical Collection Method Collection Time Receive d Time (Source) Location / / Volume Laterality Blood specimen 07/06/2017 10:18 7 (specimen) AM EST 10:18 AM EST Daphne Shahid MD POINT OF CARE TEST ORDERABLE S Performing Organization Address City/State/ZIP Code Phon e Number [address] POCT Glucose (07/06/2017 9:25 AM EST) athologist Signature POC Glucose 182 65 - 199 [facility] mg/dL [facility] LABORATORY Comment: Supplemental ranges: <140 mg/dL before meals <180 mg/dL all other times of the day Specimen Anatomical Collection Method Collection Time Receive d Time (Source) Location / / Volume Laterality Blood specimen 07/06/2017 9:25 AM 017 9:25 (specimen) EST AM EST Daphne Shahid MD POINT OF CARE TEST ORDERABLE S Performing Organization Address City/[facility]/ZIP [place] [address] (ABNORMAL) Cardiac Enzymes (LEB/CGP) (07/06/2017 8:10 AM EST) P athologist Signature Troponin-T 2.26 (H) 0.[address] [facility] [facility] 0.[facility] ng/mL [facility] LABORATORY Comment: The 99th percentile for Troponin [...] additional sample may be indicated. Reference: Third Novice Definition of Myocardial Infarction. Journal of the [employer] 2012;60:1581-98 CK, Total 124 0 - 200 unit/L [facility] Specimen Anatomical Collection Method Collection Time Receive d Time (Source) Location / / Volume Laterality Blood specimen 07/06/2017 8:10 AM 017 8:23 (specimen) EST AM EST Resulting Agency Comment Spec In Lab Daphne Shahid MD CHEMISTRY ORDERABLES Performing Organization Address City/State/ZIP Code Phon e Number [place] [address] Magnesium (07/06/2017 8:10 AM EST) athologist Signature Magnesium 0.84 0.69 - 1.07 [facility] mmol/L [facility] Specimen Anatomical Collection Method Collection Time Receive d Time (Source) Location / / Volume Laterality Blood specimen 07/06/2017 8:10 AM 017 8:21 (specimen) EST AM EST Resulting Agency Comment Spec In Lab Daphne Shahid MD CHEMISTRY ORDERABLES Performing Organization Address City/State/ZIP Code Phon e Number [address] (ABNORMAL) Basic Metabolic Panel (non-fasting) (07/06/2017 8:10 AM EST) athologist Signature Glucose Lvl 199 65 - 199 [facility] mg/dL [facility] - [...] or in patients with acute kidney failure. [email or web address].[email or web address] [email or web address].[email or web address] Specimen Anatomical Collection Method Collection Time Receive d Time (Source) Location / / Volume Laterality Blood specimen 07/06/2017 8:10 AM 017 8:21 (specimen) EST AM EST Resulting Agency Comment Spec In Lab Daphne Shahid MD CHEMISTRY ORDERABLES Performing Organization Address City/[facility]/ZIP Code Phon e Number [address] POCT Glucose (07/06/2017 7:34 AM EST) athologist Signature POC Glucose 198 65 - 199 [facility] Comment: Supplemental ranges: <140 mg/dL before meals <180 mg/dL all other times of the day Specimen Anatomical Collection Method Collection Time Receive d Time (Source) Location / / Volume Laterality Blood specimen 07/06/2017 7:34 AM 017 7:34 (specimen) EST AM EST Daphne Shahid MD POINT OF CARE TEST ORDERABLE S Performing Organization Address City/[facility]/[place] [address] POCT Glucose (07/06/2017 7:03 AM EST) athologist Signature POC Glucose 181 65 - 199 [facility]dL [facility] Comment: Supplemental ranges: <140 mg/dL before meals <180 mg/dL all other times of the day Specimen Anatomical Collection Method Collection Time Receive d Time (Source) Location / / Volume Laterality Blood specimen 07/06/2017 7:03 AM 017 7:03 (specimen) EST AM EST aDphne Shahid MD POINT OF CARE TEST ORDERABLE S Performing Organization Address City/[facility]/[place] [address] XR Chest PA or [...] POC Glucose 172 65 - 199 [facility] mg/dL [facility] Comment: Supplemental ranges: <140 mg/dL before meals <180 mg/dL all other times of the day Specimen Anatomical Collection Method Collection Time Receive d Time (Source) Location / / Volume Laterality Blood specimen 07/06/2017 6:21 AM 017 6:21 (specimen) EST AM EST Daphne Shahid MD POINT OF CARE TEST ORDERABLE S Performing Organization Address City/State/ZIP Code Phon e Number [address] POCT Glucose (07/06/2017 5:08 AM EST) athologist Signature POC Glucose 154 65 - 199 [place] [facility] mg/dL [facility] Comment: Supplemental ranges: <140 mg/dL before meals <180 mg/dL all other times of the day Specimen Anatomical Collection Method Collection Time Receive d Time (Source) Location / / Volume Laterality Blood specimen 07/06/2017 5:08 AM 017 5:08 (specimen) EST AM EST Daphne Shahid MD POINT OF CARE TEST ORDERABLE S Performing Organization Address City/State/ZIP Code Phon e Number [address] POCT Glucose (07/06/2017 4:05 AM EST) athologist Signature POC Glucose 142 65 - 199 [place] [facility] mg/dL [facility] Comment: Supplemental ranges: <140 mg/dL before meals <180 mg/dL all other times of the day Specimen Anatomical Collection Method Collection Time Receive d Time (Source) Location / / Volume Laterality Blood specimen 07/06/2017 4:05 AM 017 4:05 (specimen) EST AM EST Daphne Shahid MD POINT OF CARE TEST ORDERABLE S Performing Organization Address City/State/ZIP Code Phon e Number [address] POCT Glucose (07/06/2017 3:00 AM EST) athologist Signature POC Glucose 116 65 - 199 [place] [facility] mg/dL [facility] Comment: Supplemental ranges: <140 mg/dL before meals <180 mg/dL all other times of the day Specimen Anatomical Collection Method Collection Time Receive d Time (Source) Location / / Volume Laterality Blood specimen 07/06/2017 3:00 AM 017 3:00 (specimen) EST AM EST Daphne Shahid MD POINT OF CARE TEST ORDERABLE S Performing Organization Address City/[facility]/ZIP Code Phon e Number [address] Potassium (07/06/2017 2:20 AM EST) athologist Signature Potassium 3.9 3.5 - 5.[address] [facility]/L [facility] Comment: Please note: ??Patients with WBC [...] Shahid MD CHEMISTRY ORDERABLES Performing Organization Address City/[facility]/ZIP Code Phon e Number [address] Differential, Automated (07/06/2017 2:20 AM EST) athologist Signature Neutrophils % 72.9 % [facility] Neutr Abs (ANC) 5.53 1.70 - [facility] 6.10 [facility] x10(3)/[facility] LABORATORY Lymphocytes % 16.4 % [facility] Lymphocytes Abs 1.2 0.9 - 3.2 [facility] x10(3)/[facility] LABORATORY Monocytes % 9.4 % [facility] Monocyte Abs 0.7 0.3 - 0.9 [facility] x10(3)/[facility] LABORATORY Eosinophils % 0.5 % [facility] Eosinophils Abs 0.0 0.0 - 0.4 [facility] x10(3)/[facility] LABORATORY Basophils % 0.4 % [facility] Basophils Abs 0.0 0.0 - 0.1 [facility] x10(3)/[facility] LABORATORY Immature Gran % 0.40 % [facility] [...] Melisa Gran Abs 0.03 0.00 - 0.04 x10(3)/[facility] LABORATORY Specimen Anatomical Collection Method Collection Time Receive d Time (Source) Location / / Volume Laterality Blood specimen 07/06/2017 2:20 AM 017 2:33 (specimen) EST AM EST Resulting Agency Comment Spec In Lab Daphne Shahid MD HEMATOLOGY ORDERABLES Performing Organization Address City/State/ZIP [place] [address] (ABNORMAL) Hemogram (07/06/2017 2:20 AM EST) Analysis Performed At Patho logist Time Signature WBC 7.6 4.0 - 9.5 [facility] x10(3)/[facility] LABORATORY RBC 4.52 (L) 4.58 - [facility] 5.54 [facility] x10(6)/[facility] LABORATORY Hemoglobin 13.4 (L) 13.7 [address] [facility] 16.5 gm/dL [facility] Hematocrit 39.7 (L) 40.5 [facility] 48.5 % [facility] MCV 87.8 82.[address] [facility] 93.1 [facility] LABORATORY MCH 29.6 27.5 - [facility] SU 32.1 pg [facility]ORY MCHC 33.8 32.0 - [facility] 35.7 gm/dL [facility] Platelets 189 145 - 357 [facility] x10(3)/[facility] LABORATORY RDWSD 45.6 (H) 36.[address] [facility] 45.0 [facility] LABORATORY RDWCV 14.3 (H) 11.4 - [facility] SU 13.8 % [facility] LABORATORY MPV 9.1 7.6 - 12.9 [facility] LABORATORY nRBC % Auto 0.0 % [facility] nRBC Abs Auto 0.000 0.000 - [place] [facility] 0.000 [facility] x10(3)/[facility] LABORATORY Specimen Anatomical Collection Method Collection Time Receive d Time (Source) Location / / Volume Laterality Blood specimen 07/06/2017 2:20 AM 017 2:33 (specimen) EST AM EST Resulting Agency Comment Spec In Lab Daphne Shahid MD HEMATOLOGY ORDERABLES Performing Organization Address City/State/ZIP Code Phon e Number [address] (ABNORMAL) APTT (07/06/2017 2:20 AM EST) P athologist Signature PTT 52 (H) 25 - 35 sec [facility] [...] Shahid MD HEMATOLOGY ORDERABLES Performing Organization Address City/[facility]/ZIP Code Phon e Number [address] POCT Glucose (07/06/2017 2:20 AM EST) P athologist Signature POC Glucose 115 65 - 199 [facility] mg/dL [facility] Comment: Supplemental ranges: <140 mg/dL before meals <180 mg/dL all other times of the day Specimen Anatomical Collection Method Collection Time Receive d Time (Source) Location / / Volume Laterality Blood specimen 07/06/2017 2:20 AM 017 2:20 (specimen) EST AM EST Daphne Shahid MD POINT OF CARE TEST ORDERABLE S Performing Organization Address City/[facility]/[place] [address] (ABNORMAL) Cardiac Enzymes (LEB/CGP) (07/06/2017 2:20 AM EST) P athologist Signature Troponin-T 2.13 (H) 0.00 - [place] 0.00 ng/mL [facility] Comment: The 99th percentile for Troponin [...] additional sample may be indicated. Reference: Third Novice Definition of Myocardial Infarction. Journal of the [employer] [employer] 2012;60:1581-98 CK, Total 129 0 - 200 unit/L [facility] Specimen Anatomical Collection Method Collection Time Receive d Time (Source) Location / / Volume Laterality Blood specimen 07/06/2017 2:20 AM 017 2:33 (specimen) EST AM EST Resulting Agency Comment Spec In Lab Daphne Shahid MD CHEMISTRY ORDERABLES Performing Organization Address City/State/ZIP [place] [address] (ABNORMAL) Hemoglobin A1c (07/06/2017 2:20 AM EST) Analysis Performed At Patho logist Time Signature Hemoglobin A1C 6.8 (H) 4.3 - 5.6 [facility] [...] with hemoglobinopathies. Additional resources are available on [facility] ADA website. Macario HAMMOND, Ruthann J, Deysi R, et al. ??Tr anslating the A1C assay into estimated average glucose values. ??Diabetes Care 2008:31(8):5011-9632. Specimen Anatomical Collection Method Collection Time Receive d Time (Source) Location / / Volume Laterality Blood specimen 07/06/2017 2:20 AM 017 2:34 (specimen) EST AM EST Resulting Agency Comment Spec In Lab Daphne Shahid MD CHEMISTRY ORDERABLES Performing Organization Address City/State/ZIP Code Phon e Number [facility] (ABNORMAL) Lipid Panel (07/06/2017 2:20 AM EST) Patholo gist Method Time Signature Chol, Total 150 <=239 [place] mg/dL [facility] Triglycerides 129 <=199 [facility] mg/dL [facility] HDL 32 (L) >=40 [place] mg/dL [facility] LDL Cholesterol 92 <=190 [facility] mg/dL [facility] Chol/HDL Ratio 4.7 ratio [facility] Lipid See Note [place] Interpretation [facility] Comment: Lipid management should be guided by a p atient? s ASCVD risk, goals and preferences. ACC/AHA Guidelines recommend high intens ity statin if clinical ASCVD or LDL greater than or equal to 190 mg/dL. http://Anulex/DME-TJE-Ouwcwymdx Adults aged 40-75 with LDL 70-189 mg/dL should have their 10 year ASCVD risk estimated with the ACC/AHA ASCVD risk es timator http://tools.acc.org/VESOH-Bzla-Egadzoeo r/ Statin should be discussed if risk [...] Address City/State/ZIP Code Phon e Number [address] POCT Glucose (07/06/2017 1:09 AM EST) athologist Signature POC Glucose 121 65 - 199 [place] [facility] mg/dL [facility] Comment: Supplemental ranges: <140 mg/dL before meals <180 mg/dL all other times of the day Specimen Anatomical Collection Method Collection Time Receive d Time (Source) Location / / Volume Laterality Blood specimen 07/06/2017 1:09 AM 017 1:09 (specimen) EST AM EST Daphne Shahid MD POINT OF CARE TEST ORDERABLE S Performing Organization Address City/State/ZIP Code Phon e Number [address] POCT Glucose (07/06/2017 12:06 AM EST) athologist Signature POC Glucose 147 65 - 199 [place] [facility] mg/dL [facility] Comment: Supplemental ranges: <140 mg/dL before meals <180 mg/dL all other times of the day Specimen Anatomical Collection Method Collection Time Receive d Time (Source) Location / / Volume Laterality Blood specimen 07/06/2017 12:06 7 (specimen) AM EST 12:06 AM EST Daphne Shahid MD POINT OF CARE TEST ORDERABLE S Performing Organization Address City/State/[place] [address] (ABNORMAL) POCT Glucose (07/05/2017 10:56 PM EST) athologist Signature POC Glucose 200 (H) 65 - 199 [place] [facility] mg/dL [facility] Comment: Supplemental ranges: <140 mg/dL before meals <180 mg/dL all other times of the day Specimen Anatomical Collection Method Collection Time Receive d Time (Source) Location / / Volume Laterality Blood specimen 07/05/2017 10:56 7 (specimen) PM EST 10:56 PM EST Daphne Shahid MD POINT OF CARE TEST ORDERABLE S Performing Organization Address City/State/[place] [address] (ABNORMAL) POCT Glucose (07/05/2017 10:05 PM EST) athologist Signature POC Glucose 225 (H) 65 - 199 [place] [facility] mg/dL [facility] Comment: Supplemental ranges: <140 mg/dL before meals <180 mg/dL all other times of the day Specimen Anatomical Collection Method Collection Time Receive d Time (Source) Location / / Volume Laterality Blood specimen 07/05/2017 10:05 7 (specimen) PM EST 10:05 PM EST Daphne Shahid MD POINT OF CARE TEST ORDERABLE S Performing Organization Address City/State/[place] [address] (ABNORMAL) POCT Glucose (07/05/2017 9:02 PM EST) P athologist Signature POC Glucose 301 (H) 65 - 199 [facility] mg/dL [facility] Comment: Supplemental ranges: <140 mg/dL before meals <180 mg/dL all other times of the day Specimen Anatomical Collection Method Collection Time Receive d Time (Source) Location / / Volume Laterality Blood specimen 07/05/2017 9:02 PM 017 9:02 (specimen) EST PM EST Daphne Shahid MD POINT OF CARE TEST ORDERABLE S Performing Organization Address City/State/[place] [address] XR Chest PA or [...] 474 ms MUSE SYSTEM (Bezet) Calculated P [place] 50 degrees MUSE SYSTEM Calculated R [place] -28 degrees MUSE SYSTEM Calculated T [place] 90 degrees MUSE SYSTEM INTERPRETATION Sinus tachycardia [...] Time Signature Neutrophils % 88.4 % [facility] Neutr Abs (ANC) 9.08 (H) 1.70 - [facility] 6.10 [facility] x10(3)/[facility] L LABORATORY Lymphocytes % 7.0 % [facility] Lymphocytes Abs 0.7 (L) 0.9 - 3.2 [facility] x10(3)/[facility] LABORATORY Monocytes % 3.7 % [facility] Monocyte Abs 0.4 0.3 - 0.9 [facility] x10(3)/[facility] LABORATORY Eosinophils % 0.1 % [facility] Eosinophils Abs 0.0 0.0 - 0.4 [facility] x10(3)/[facility] LABORATORY Basophils % 0.2 % [facility] Basophils Abs 0.0 0.0 - 0.1 [facility] x10(3)/[facility] LABORATORY Immature Gran % 0.60 % [facility] [...] Address City/State/ZIP [place] [address] (ABNORMAL) Hemogram (07/05/2017 8:20 PM EST) Analysis Performed At Patho logist Time Signature WBC 10.3 (H) 4.0 - 9.5 [facility] x10(3)/[facility] LABORATORY RBC 4.64 4.58 - [facility] 5.54 [facility] x10(6)/[facility] LABORATORY Hemoglobin 14.1 13.7 - [facility] 16.5 gm/dL [facility] Hematocrit 40.8 40.5 - [facility] 48.5 % [facility] MCV 87.9 82.9 - [place] [facility] 93.1 [facility] LABORATORY MCH 30.4 27.5 - [place] 32.1 pg [facility] MCHC 34.6 32.0 - [place] ZHAOSU 35.7 gm/dL [facility] Platelets 204 145 - 357 [facility] x10(3)/[facility] LABORATORY RDWSD 46.1 (H) 36.0 - [place] [facility] 45.0 [facility] LABORATORY RDWCV 14.5 (H) 11.4 - [facility] SU 13.8 % [facility] LABORATORY MPV 9.7 7.6 - 12.9 [facility] LABORATORY nRBC % Auto 0.0 % [facility] nRBC Abs Auto 0.000 0.000 - [place] [facility] 0.000 [facility] x10(3)/[facility] LABORATORY Specimen Anatomical Collection Method Collection Time Receive d Time (Source) Location / / Volume Laterality Blood specimen 07/05/2017 8:20 PM 017 8:27 (specimen) EST PM EST Resulting Agency Comment Spec In Lab Daphne Shahid MD HEMATOLOGY ORDERABLES Performing Organization Address City/State/[place] [address] APTT (07/05/2017 8:20 PM EST) P athologist Signature PTT 32 25 - 35 sec [facility] [...] Organization Address City/State/[place] [address] (ABNORMAL) Cardiac Enzymes (LEB/CGP) (07/05/2017 8:20 PM EST) athologist Signature Troponin-T 2.11 (H) 0.00 - [place] [facility] 0.00 ng/mL [facility] Comment: The 99th percentile for Troponin [...] additional sample may be indicated. Reference: Third Novice Definition of Myocardial Infarction. Journal of the [employer] [employer] 2012;60:1581-98 CK, Total 149 0 - 200 unit/L [facility] Specimen Anatomical Collection Method Collection Time Receive d Time (Source) Location / / Volume Laterality Blood specimen 07/05/2017 8:20 PM 017 8:27 (specimen) EST PM EST Resulting Agency Comment Spec In Lab Daphne Shahid MD CHEMISTRY ORDERABLES Performing Organization Address City/State/ZIP [place] [address] (ABNORMAL) Magnesium (07/05/2017 8:20 PM EST) P athologist Signature Magnesium 0.68 (L) 0.69 - 1.07 [facility] mmol/L [facility] Specimen Anatomical Collection Method Collection Time Receive d Time (Source) Location / / Volume Laterality Blood specimen 07/05/2017 8:20 PM 017 8:27 (specimen) EST PM EST Resulting Agency Comment Spec In Lab Daphne Shahid MD CHEMISTRY ORDERABLES Performing Organization Address City/State/ZIP [place] [address] (ABNORMAL) Basic Metabolic Panel (non-fasting) (07/05/2017 8:20 PM EST) P athologist Signature Glucose Lvl 321 (H) 65 - 199 [facility] mg/dL [facility] - [...] or in patients with acute kidney failure. http://Anadys.cottonTracks/DHnkdep http://Anulex/DHMCnkf Specimen Anatomical Collection Method Collection Time Receive d Time (Source) Location / / Volume Laterality Blood specimen 07/05/2017 8:20 PM 017 8:27 (specimen) EST PM EST Resulting Agency Comment Spec In Lab Daphne Shahid MD CHEMISTRY ORDERABLES Performing Organization Address City/State/ZIP Code Phon e Number [address] (ABNORMAL) POCT Glucose (07/05/2017 7:32 PM EST) P athologist Signature POC Glucose 296 (H) 65 - [address] [facility] mg/dL [facility] Comment: Supplemental ranges: <140 mg/dL before meals <180 mg/dL all other times of the day Specimen Anatomical Collection Method Collection Time Receive d Time (Source) Location / / Volume Laterality Blood specimen 07/05/2017 7:32 PM 017 7:32 (specimen) EST PM EST Daphne Shahid MD POINT OF CARE TEST ORDERABLE S Performing Organization Address City/[facility]/Z[place] [address] CARDIAC CATHETERIZATION (07/05/2017 6:47 PM EST) Anatomical Region Laterality Modality Other Specimen (Source) Anatomical Location Collection Method / Collectio n Time Received Time / Laterality Volume Narrative 07/05/2017 7:27 PM EST ?[facility] ? Cardiac Cathete rization/Intervention Report ? Patient Name: Natalya, Gregory ? Procedure Date: 07/05/2017 ? A #: [id number] ? Primary Physician: Clarisa, Jet T ? Case #: [id number] ? File Name: [id number] ? Catheterization Order Number: [id number] ? [facility] ?Supervisor [facility] ? Final Report [place], [place] ? Patient Name: ? Gregory Natalya ?ID#: ?[id number] ? : ?1945 ? Procedure Date: ? [...] presented with: non -STEMI (w/i 7 days). [place] ?Cardiovascular Society angina c lass was IV. [...] angio graphy and IABP insertion in laboratory assistant. ? Jet Mckenna M.D. ? Electronically Signed by: Jet bunch M.D. ? Report Finalized: 07/05/2017 ??19:23 ? Report Last Ammended: 10/26/2017 ??10:29 ? Procedure Note Jet Mckenna MD - 10/26/2017Formatt ing of this note might be different from the original. [facility] Cardiac Catheterization/Intervention Re port Patient Name: Gregory Hoang Procedure Date: 07/05/2017 A #: [id number] Primary Physician: Jet Mckenna Case #: [id number] File Name: [id number] Catheterization Order Number: [id number] [facility] Final Report [place], [place] Patient Name: Gregory Hoang ID#: [id number] : 1945 Procedure Date: July 05, [...] presented with: non-STEMI ( w/i 7 days). [place] [employer] angina class was IV. No [...] angiograph y and IABP insertion in laboratory assistant. Jet Mckenna M.D. Electronically Signed [...] Mccollum ? (Age): 1945(72y) Med Rec#: ? [id number] ?Sex: ?M ? Site Loc: ? [facility] ?Ht / Wt: ??173(cm)/86(kg) Pt. Loc: ?CCU ? BSA: ?2 Study Date: ?? 07/05/2017 ?Pt. Type: Inpatient Tape: ? Referring: Daphne Shahid ([id number]) Referring: MANDA ALCANTAR Reading: Blade Preston ([id number]) Manager Advanced: Dayami Paula BA, [facility] Diagnosis: *ICD-10-PCS Non-ST elevation (NSTEMI) m yocardial [...] E-wave Vmax ?0.8 ?m/sec ? MV deceleration [id number] ?msec ? MV A-wave Vmax ?0.8 ?m/sec [...] ? Mid-Inferior ?Akinetic ? Mid-Inferoseptal ?Hypokinetic ? [place]-Septal ? Akinetic ? [place]-Anterior ? Hypokinetic ? [place]-Lateral ?Hypokinetic ? [place]-Inferior ? Akinetic ? [place]-Tip ?Akinetic ? This report has been electronically sign ed by: _ Blade Preston MD ? 07/06/2017 08 :53:15 Images reviewed and [facility] Procedure Note Blade Preston MD - 07/06/2017Formatt ing of this note might be different from the original. Procedure: Transthoracic Echocardiogram Patient: NATALYA MCBRIDE(Age): [birth year]72y) Med Rec#: [id number] Sex: M Site Loc: [facility] Ht / Wt: 173(cm)/86(kg) Pt. Loc: CCU BSA: 2 Study Date: 07/05/2017 Pt. Type: Inpatie nt Tape: Referring: Daphne Shahid ([id number]) Referring: MANDA ALCANTAR Reading: Blade Preston ([id number]) Manager Advanced: Dayami Paula BA, [facility] Diagnosis: *ICD-10-PCS Non-ST elevation (NSTEMI) m yocardial [...] MV E-wave Vmax 0.8 m/sec MV deceleration [id number] msec MV A-wave Vmax 0.8 m/sec MV [...] Hypokinetic Mid-Posterolateral Hypokinetic Mid-Inferior Akinetic Mid-Inferoseptal Hypokinetic [place]-Septal Akinetic [place]-Anterior Hypokinetic [place]-Lateral Hypokinetic [place]-Inferior Akinetic [place]-Tip Akinetic This report has been electronically sign ed by: _ Blade Preston MD 07/06/2017 08:53:15 Images reviewed and interpretation verif ied [facility] Cardiac Ultrasound Laboratory Daphne Shahid MD ECHO ORDERABLES Differential, Automated (07/05/2017 4:55 PM EST) athologist Signature Neutrophils % 77.0 % [facility] Neutr Abs (ANC) 5.26 1.70 - [facility] 6.10 [facility] x10(3)/[facility] LABORATORY Lymphocytes % 13.3 % [facility] Lymphocytes Abs 0.9 0.9 - 3.2 [facility] x10(3)/[facility] LABORATORY Monocytes % 8.2 % [facility] Monocyte Abs 0.6 0.3 - 0.9 [facility] x10(3)/[facility] LABORATORY Eosinophils % 0.7 % [facility] Eosinophils Abs 0.0 0.0 - 0.4 [facility] x10(3)/[facility] LABORATORY Basophils % 0.4 % [facility] Basophils Abs 0.0 0.0 - 0.1 [facility] x10(3)/[facility] LABORATORY Immature Gran % 0.40 % [place] [...] Melisa Gran Abs 0.03 0.00 - 0.04 x10(3)/[facility] LABORATORY Specimen Anatomical Collection Method Collection Time Receive d Time (Source) Location / / Volume Laterality Blood specimen 07/05/2017 4:55 PM 017 5:24 (specimen) EST PM EST Resulting Agency Comment Spec In Lab Daphne Shahid MD HEMATOLOGY ORDERABLES Performing Organization Address City/State/[place] [address] (ABNORMAL) Hemogram (07/05/2017 4:55 PM EST) Analysis Performed At Patho logist Time Signature WBC 6.8 4.0 - 9.5 [facility] x10(3)/[facility] LABORATORY RBC 4.67 4.58 - [facility] 5.54 [facility] x10(6)/[facility] LABORATORY Hemoglobin 14.0 13.7 - [facility] 16.5 gm/dL [facility] LABORATORY Hematocrit 41.0 40.5 - [facility] 48.5 % [facility] LABORAT[facility] MCV 87.8 82.9 - [facility] 93.1 [facility] LABORATORY MCH 30.0 27.5 - [facility] 32.1 pg [facility] LABORATORY MCHC 34.1 32.0 - [facility] 35.7 gm/dL [facility] LABORATORY Platelets 197 145 - 357 [facility] x10(3)/[facility] LABORATORY RDWSD 46.4 (H) 36.0 - [facility] 45.0 [facility] LABORATORY RDWCV 14.5 (H) 11.[address] [facility] 13.8 % [facility] LABORATORY MPV 9.7 7.6 - 12.9 [facility] LABORATORY nRBC % Auto 0.0 % [facility] nRBC Abs Auto 0.000 0.000 - [facility] 0.000 [facility] x10(3)/[facility] LABORATORY Specimen Anatomical Collection Method Collection Time Receive d Time (Source) Location / / Volume Laterality Blood specimen 07/05/2017 4:55 PM 017 5:24 (specimen) EST PM EST Resulting Agency Comment Spec In Lab Daphne Shahid MD HEMATOLOGY ORDERABLES Performing Organization Address City/State/[place] [address] (ABNORMAL) Cardiac Enzymes (LEB/CGP) (07/05/2017 4:55 PM EST) athologist Signature Troponin-T 1.69 (H) 0.00 - [place] [facility] 0.00 ng/mL [facility] LABORATORY Comment: The 99th percentile for Troponin [...] additional sample may be indicated. Reference: Third Novice Definition of Myocardial Infarction. Journal of the [place] [employer] 2012;60:1581-98 CK, Total 191 0 - 200 unit/L [facility] Specimen Anatomical Collection Method Collection Time Receive d Time (Source) Location / / Volume Laterality Blood specimen 07/05/2017 4:55 PM 017 5:56 (specimen) EST PM EST Resulting Agency Comment Spec In Lab Daphne Shahid MD CHEMISTRY ORDERABLES Performing Organization Address City/[facility]/ZIP Code Phon e Number [address] (ABNORMAL) pro-Brain Natriuretic Peptide (07/05/2017 4:55 PM EST) athologist Signature ProBNP 1,598 (H) <=[address] [facility] pg/mL [facility] LABORATORY Specimen Anatomical Collection Method Collection Time Receive d Time (Source) Location / / Volume Laterality Blood specimen 07/05/2017 4:55 PM 017 5:24 (specimen) EST PM EST Resulting Agency Comment Spec In Lab Daphne Shahid MD CHEMISTRY ORDERABLES Performing Organization Address City/[facility]/ZIP Code Phon e Number [address] Magnesium (07/05/2017 4:55 PM EST) athologist Signature Magnesium 0.78 0.69 - 1.07 [facility] mmol/L [facility] LABORATORY Specimen Anatomical Collection Method Collection Time Receive d Time (Source) Location / / Volume Laterality Blood specimen 07/05/2017 4:55 PM 017 5:24 (specimen) EST PM EST Resulting Agency Comment Spec In Lab Daphne Shahid MD CHEMISTRY ORDERABLES Performing Organization Address City/[facility]/ZIP [facility] [place] [address] (ABNORMAL) Basic Metabolic Panel (non-fasting) (07/05/2017 4:55 PM EST) P athologist Signature Glucose Lvl 230 (H) 65 - 199 [facility] mg/dL [facility] - [...] or in patients with acute kidney failure. http://Anulex/DHnkdep http://Anulex/[email or web address] Specimen Anatomical Collection Method Collection Time Receive d Time (Source) Location / / Volume Laterality Blood specimen 07/05/2017 4:55 PM 017 5:24 (specimen) EST PM EST Resulting Agency Comment Spec In Lab Daphne Shahid MD CHEMISTRY ORDERABLES Performing Organization Address City/[facility]/[place] [address] (ABNORMAL) APTT (07/05/2017 4:55 PM EST) P athologist Signature PTT 41 (H) 25 - 35 sec [facility] [...] Organization Address City/State/[place] [address] (ABNORMAL) POCT Glucose (07/05/2017 4:53 PM EST) P athologist Signature POC Glucose 208 (H) 65 - 199 [facility] Comment: Supplemental ranges: <140 mg/dL before meals <180 mg/dL all other times of the day Specimen Anatomical Collection Method Collection Time Receive d Time (Source) Location / / Volume Laterality Blood specimen 07/05/2017 4:53 PM 017 4:53 (specimen) EST PM EST Daphne Shahid MD POINT OF CARE TEST ORDERABLE S Performing Organization Address City/[facility]/[place] [address] EKG 12 Lead (07/05/2017 4:32 PM EST) Component Value Ref Range Test Analysis Performed Pathologis t Method Time At Signature Ventricular rate 97 BPM MUSE SYSTEM Atrial Rate 97 BPM MUSE SYSTEM P-R Interval 148 ms MUSE SYSTEM QRS Duration 96 ms MUSE SYSTEM Q-T Interval 364 ms MUSE SYSTEM QTC Calculated 462 ms MUSE SYSTEM (Bezet) Calculated P [place] 48 degrees MUSE SYSTEM Calculated R [place] -33 degrees MUSE SYSTEM Calculated T [place] 98 degrees MUSE SYSTEM INTERPRETATION Normal sinus [...] post-op day 1 in the AM Give CO if unable to take PO, Routine Given [...] post-op day 1 in the AM Give CO if unable to take PO, Routine atorvastatin [...] Provider: Yanet Valdovinos, VAMSI)[id number] (Stopped - Provider: oMre Luther RN) 0125 (New Bag - Provider: [...] parameters not met)0400 (Not Given - Provider: Cramen Berry RN - Reason: Order parameters not [...] Luther RN) 1400 (Dose confirmed - Provider: mE Jones RN) 1400 (Dose confirmed - Provider: [...] post-op day 1 in the AM Give CO if unable to take PO
Routine Group [...]
Routine documented in this encounter Care Teams Physical Therapy Aid Relationship Specialty Start Date End Date Lovely Vicente MD PCP - General 04/16/[address] [place] [address] [address] [place] [address] documented as of this encounter
--- OUTSIDE RECORDS SUMMARY | 2022-04-08 08:56 | XMS_ITS | Encounter Summary ---
:1945 [place] [address] Care Team Providers Name Role Phone Lovely Vicente MD Primary Care Provider Reason for Visit Auth/Cert Specialty Diagnoses / Procedures Referred By Contact Refer red To Contact Diagnoses STEMI (ST elevation myocardial infarction) NSTEMI STEMI Procedures CARDIAC CATHETERIZATION NAYE IPI Referral ID Status Reason Start Date Expiration Date Visits Requ ested Visits Authorized [id number] 1 1 Encounter Details Date Type Department Care Team Description 07/05/2017 Surgery Perinatal Coordinator Jet Guan, CARDIAC CATHETERIZATION [facility] [place] [address] CARDIOLOGY DEPT. [phone] [place], [place] [address] (Wo rk) Social History [...] this encounter Discharge Summaries Martha Teague S, MANAGER HOUSEKEEPING - 07/14/2017 9:38 AM EST Inpatient - [...] , @ 1:20p Patient to follow-up with Finger Lift Operator/heart failure team in one week. An appointment will be made for you. You may call [phone] Patient to follow-up with Cardiac Surgery, Dr. Yuan Webber, in ~ 4 weeks with CXR, EKG. Inpatient Provider Contact Information: [facility] Section of Cardiac Surgery [facility] [address] FAX [phone] Discharge Diagnoses (Hospital Problems) Primary Diagnoses: CAD [...] SETUP performed by Manny Mcknight MD at [facility] OR ??? PRO CABG, ARTERIAL, SINGLE N/A 07/07/2017 @CABG, USING ARTERIAL GRAFT;SINGLE ARTERIAL GRAFT (WRVU 33.75) performed by Yuan Webber MD at [facility] OR ??? PRO CABG, ARTERY-VEIN, TWO N/A 07/07/2017 @CABG, TWO VENOUS GRAFTS & ARTERIAL GRAFT (WRVU 7.93) performed by Yuan Webber MD at [facility] OR ??? PRO COLONOSCOPY, REMV LESN, SNARE 01/16/2014 COLONOSCOPY, POLYPECTOMY, REMOVAL LESION BY SNARE performed by Nohemi Jaimes MD at [facility] ENDOSCOPY ??? PRO ENDOSCOPY W/VIDEO-ASST VEIN HARVEST, CABG Right 07/07/2017 ENDOSCOPIC HARVEST VEIN(S) FOR CABG (WRVU 0.31) performed by Yuan Webber MD at [facility] OR ??? PRO THYROIDECTOMY 03/28/2013 THYROIDECTOMY, TOTAL OR COMPLETE performed by Manny Mcknight MD at [facility] OR Prior To Admission Medications Prescriptions Prior to Admission Medication Sig Dispense Refill Last Dose ??? levothyroxine (SYNTHROID) 175 mcg Tablet Take 1 tablet by mouth daily. 90 tablet 3 07/05/2017 [id number] ??? ascorbic acid, vitamin C, (VITAMIN C) [...] Gregory Hoang was admitted to [facility] on 07/05/2017 via the Cardiology Service. During his hospital course, he was taken emergently to the flue dust laborer for an ongoing STEMI. An IABP [...] not take or discontinue any prescription or rxqh-ibv-hlqhieg medications without asking your doctor or pharmacist [...] day to have your insulin doses adjusted. [facility] Endocrine clinic office Discharge Instructions: Call your doctor if: You have a fever of greater than 101 degrees, shaking chills, if you develop redness or drainage from your incision sites, or if you have questions. Please call your surgeon's office if you have any discharge or drainage from your chest incision. Your surgeon, Dr. Yuan Webber and/or the Cardiac Surgery Physician Building Stonecutter Team may be reached at . Weight: [...] Dr. Yuan Webber. You may use a [place] or treadmill but avoid any pulling [...] with the surgeon. Do not ride motorcycles, [employer] tractors or horses. Avoid the use of [...] should resume a low fat, low cholesterol, [place] Heart Association Diet/Diabetic diet. Driving: No driving [...] , @ 1:20p Patient to follow-up with Finger Lift Operator/heart failure team in one week. Appointment will be made for you. You may call [phone] Patient to follow-up with Cardiac Surgery, Dr. Yuan Webber, in ~ 4 weeks with CXR, EKG. Cardiac Rehabilitation: Gregory Hoang was seen today regarding participation in the outpatient Phase 2 Cardiac Rehabilitation at [facility]. The patient agrees to a referral to this program. The referral will be sent at discharge and the patient should be contacted by the Program within 1- 2 weeks from discharge. ?? Future Appointments and Orders Future Appointments Provider Department Dept Phone 09/07/2017 3:00 PM LAB, THREE L Lab 3L [facility] [phone] 09/07/2017 4:00 PM Luz Prescott MD Endocrinology at [place] [phone] Future Orders Complete By Expires EKG 12 Lead [EKG1 Custom] 08/14/2017 02/13/2018 Process Instructions: Scheduling Instructions: Questions: Which DH location will this be performed?: [place] Is a rhythm strip needed?: No If EKG Reason is Pre-op Evaluation, indicate diagnosis for surgery.: XR Chest PA & Lateral (Generic) [33102 [id number] Custom] 08/14/2017 02/13/2018 Process Instructions: Scheduling Instructions: Questions: Where will study be performed?: [place] Radiology Portable exam?: Reason for exam and clinical history: CABG x 3 Other pertinent information: Stat read required?: Date of injury if applicable: Requested Time: Referral to Cardiac Rehab [VRR984 Custom] As directed Process Instructions: If no progress note charted, please enter Clinical details in comments. Scheduling Instructions: Questions: My question or request is: s/p CABG. Cardiac rehab at [facility] Referral to Home Health - at DISCHARGE [RFM6277 CPT(R)] As directed Process Instructions: Scheduling Instructions: Comments: DOCUMENTATION FOR VNA SERVICES (INCLUDING THOSE PATIENTS WITH MEDICARE COVERAGE REQUIRING HOME VNA SERVICES AND/OR HOSPICE SERVICES) PATIENT'S LOCATION: Gregory Hoang [address] [place] [address] [place] [address] (home) Telephone Information: Charhouse Worker's Name: self In discussion with the attending physician, it is certified that this patient is under their care and that they, or a Nurse Practitioner, or Physician Building Stonecutter who is working directly with them, had [...] HEALTH AGENCY: [facility]mani Munguia ([facility] [place] [employer]-is in [place]) PHONE: [phone] FAX: [phone] RN orders: Cardiopulmonary assessment, incisional assessment, assess vital signs, assessment of rehab progress, medication management and effectiveness, home safety evaluation. Please draw INR if indicated and send result to:Dr Vicente [phone] PT ORDERS: Continue rehab for endurance, gait stability and strength with mobility and transfers. Home safety evaluation. Home exercise program if appropriate. Start of Care Date:24-48 hours after discharge SPECIAL INSTRUCTIONS: For any follow up questions, needs, or issues please call the Cardiac Surgery Office at [phone] FOR MEDICARE ONLY: (please delete this section [...] [facility] Section of Cardiac Surgery [facility] [address] FAX [phone] Date: 07/14/2017 CC: MD Ivania Cr Betsy, PA [address] [place] [phone] documented in this encounter Discharge Instructions Discharge [...] day to have your insulin doses adjusted. [facility] Endocrine clinic office Patient InstructionsStMartha mcdonald APRN [...] not take or discontinue any prescription or astr-sab-mbmeqag medications without asking your doctor or pharmacist [...] day to have your insulin doses adjusted. [facility] Endocrine clinic office ? Discharge Instructions: ?? Call your doctor if: You have a fever of greater than 101 degrees, shaking chills, if you develop redness or drainage from your incision sites, or if you have questions. Please call your surgeon's office if you have any discharge or drainage from your chest incision. Your surgeon, Dr. Yuan Webber and/or the Cardiac Surgery Physician Building Stonecutter Team may be reached at . ?? [...] Dr. Yuan Webber. You may use a [place] Track or treadmill but avoid any pulling [...] with the surgeon. Do not ride motorcycles, [employer]s tractors or horses. Avoid the use [...] should resume a low fat, low cholesterol, [place] Heart Association Diet/Diabetic diet. ?? Driving: No [...] @ 1:20p ?? Patient to follow-up with Finger Lift Operator/heart failure team in one week. An appointment has been made for you, you can call [phone] ?? Patient to follow-up with Cardiac Surgery, Dr. Yuan Webber, in ~ 4 weeks with CXR, EKG. ? Cardiac Rehabilitation: Gregory Hoang??was seen today regarding participation in the outpatient Phase 2 Cardiac Rehabilitation at [facility]. ?? The patient agrees to a referral to this program.? The referral will be sent at discharge and the patient should be contacted by the Program within 1- 2 weeks from discharge. ? Future Appointments and Orders Future Appointments Provider Department Dept Phone ?? 09/07/2017 3:00 PM LAB, THREE L Lab 3L [facility] [phone] ?? 09/07/2017 4:00 PM Luz Prescott MD Endocrinology at [place] [phone] Future Orders Complete By Expires ?? EKG 12 Lead [EKG1 Custom] 08/14/2017 02/13/2018 ?? Process Instructions: ? Scheduling Instructions: ? Questions: ? Which location will this be performed?: [place] ?? Is a rhythm strip needed?: No ?? If EKG Reason is Pre-op Evaluation, indicate diagnosis for surgery.: ?? XR Chest PA & Lateral (Generic) [[id number] Custom] 08/14/2017 02/13/2018 ?? Process Instructions: ? Scheduling Instructions: ? Questions: ? Where will study be performed?: [place] Radiology ?? Portable exam?: ?? Reason for exam and clinical history: CABG x 3 ?? Other pertinent information: ?? Stat read required?: ?? Date of injury if applicable: ?? Requested Time: ?? Referral to Cardiac Rehab [SXY726 Custom] As directed ? Process Instructions: ?? If no progress note charted, please enter Clinical details in comments. ?? Scheduling Instructions: ? Questions: ? My question or request is: s/p CABG. Cardiac rehab at [facility] ? Arrangements for VNA/home care: As above. [...] are placed. Patient requests referral to [facility] [employer]. PHONE: [phone] FAX: [phone] Expected date of discharge: 07/14 Referral routed to the Chart Picker for matching with agency/vendor and to provide [...] day to have your insulin doses adjusted. [facility] Endocrine clinic office Kathie Carrera APRN [facility] Endocrinology Diabetes Management Pager [phone] 20 minutes of this 35 minute visit [...] to : Yasmani Munguia ([facility] [place] [employer]-is in [place]) PHONE: [phone] FAX: [phone]. Expected date of discharge: 07/14/17 Referral routed to the Chart Picker for matching with agency/vendor and to provide [...] #6 s/p CABG X3. [facility] [place], reports no symptoms but did drink some [...] Will continue to follow Katerin Azul APRN [facility] Endocrinology Diabetes Management Pager [phone] 15 minutes of this 25 minute visit [...] of infiltration/extravasation Discussed plan of care with ASSOCIATE CURATOR and RN. Elevate exrtemity and apply intermittent Warm compresses. Name of MD contacted Dr. Shaw Brown 07/13/2017 @ 0655 Name of RN contacted Ale Rangel RN Name of Pharmacist if consulted NA Name of Plastics MD ( if consulted) NA (Mandatory photo for infiltrations/ extravasations scoring a stage 2 or greater, but recommended forstage 1)( include measuring tape and identifier in the photo) MYCOLOGY TEACHER CARING FOR THIS PATIENT WILL CONTINUE [...] measuring tape and identifier in the photo) MYCOLOGY TEACHER CARING FOR THIS PATIENT WILL CONTINUE [...] AM EST Cardiac Surgery Progress Note: ID: [id number] 72 year old male POD#6 s/p CABGx3 [...] discharge planning needs. I have provided the [facility], Office of Care Management letter from the Staking Technician pertaining to rehab referrals. I have also provided a letter describing our affiliations within the [facility] and educated them about their right [...] date of discharge: 07/14 Note routed to Chart Picker who will communicate referrals to facilities and [...] hours. If BG remains greater than 240, taosmc03 units (no more than three times) & call for new basal insulin orders. ??If less than 240 after two hours, give no insulin and resume prior schedule. Will continue to follow Katerin Azul APRN [facility] Endocrinology Diabetes Management Pager [phone] 20 minutes of this 35 minute visit was spent with the patient in counseling on diabetes and treatment plan, reviewing all glucose and insulin data as well as relevant laboratory results with the patient, and coordination of care on the inpatient unit including nursing and primary team. Makayla Stevenson APRN - 07/12/2017 9:52 AM EST Cardiac Surgery Progress Note: ID: [id number] 72 year old male POD#5 s/p CABGx3 [...] 07/11/2017 7:18 PM EST Patient arrived from [facility]. VSS. MSI dressing pulled off with [...] hours. If BG remains greater than 240, vixvbm02 units (no more than three times) & [...] AM EST Cardiac Surgery Progress Note: ID: [id number] 72 year old male POD#4 s/p CABGx3 [...] hours. If BG remains greater than 240, uhsort30 units (no more than three times) & [...] AM EST Cardiac Surgery Progress Note: ID: [id number] 72 year old male POD#3 s/p CABGx3 [...] Gas) No results found for: PHART, PO2ART, ULJ8IUF Assessment/Plan: 72 year old male POD#3 s/p [...] Mami Thao - 07/09/2017 6:29 PM EST Nutrition Associate Encounter Note Patient Name: Gregory Hoang : [id number] MR#: [id number] Admit Date: 07/05/2017 4:20 PM Hospital Day 4 days Narrative: Patient was sitting in chair, hugging heart pillow, opened his eyes, nodding to come into room Assessment: Patient was sleepy. Intervention and Outcome: Introduced copping machine operator services and patient reached his hand out in appreciation. Follow-up: Nutrition Associate remains available for support. Time in [...] 07/09/2017 10:45 AM EST Report given to hourly sales staff to cover care Maddison Cee PA - 07/09/2017 9:00 AM EST Cardiac Surgery Progress Note: ID: [id number] 72 year old male POD#2 s/p CABGx3 [...] on rounds. Signed: STEPHANIE Iqbal [facility] Section of Cardiac Surgery Date: 07/09/2017 [place] [...] when IABP d/c'ed. Gretchen Carolina, PT Pager [phone] Maddison Cee PA - 07/08/2017 11:27 AM EST Cardiac Surgery Progress Note: ID: [id number] 72 year old male POD#1 s/p CABGx3 [...] on rounds. Signed: STEPHANIE Iqbal [facility] Section of Cardiac Surgery Date: 07/08/2017 Nick [...] in place in R femoral. No hematoma. ROOFER- Intact Psych- Anxious Skin- Dry, no peripheral [...] 2cm Resp: CTABL in anterior and lateral ballestreos ballesteros Abd: +BS, soft, non-tender, non-distended Ext: [...] intact. IABP in place in R femoral. ROOFER- Intact Psych- Anxious Skin- Dry, no peripheral [...] note for details. DAPHNE SHAHID MD Pager [phone] Jet Mckenna MD - 07/05/2017 6:48 PM EST Preliminary Cardiac Catheterization Procedure Note: Procedure(s) performed: Left heart cath, IABP insertion Access: Right FISH INSPECTOR-->8fr IABP A time-out was conducted prior to [...] effect. Heparin gtt maintained. Pt transferred to flue dust laborer. documented in this encounter H&P Notes Daphne Shahid MD - 07/05/2017 6:08 PM EST CARDIOLOGY HISTORY & PHYSICAL EXAM Date of Admission: 07/05/2017 ( Hospital Day 0 days ) Responsible Attending: Daphne Shahid MD PCP: Lovely Vicente MD PCP#: [phone] Patient Active Problem List Diagnosis Code ??? [...] load with heparin drip and transferred to [facility]. While there, continued sob, question of chest pain. Stat TTE showing WMA diffusely and EF around 20%. No significant valvular disease. Taken to the flue dust laborer urgently for ongoing STEMI. [facility] Labs: INR 1.0 WBC 5.88 Hgb 12.9 [...] monitor I/O - s/p lasix in the flue dust laborer, redose to aim net neg 1L [...] Medicine, PGY-2 Cardiology S1, Team Pager # [phone] CARDIOLOGY ATTENDING NOTE Patient: Gregory Hoang Date [...] amenable for PCI. DAPHNE SHAHID MD Pager [phone] documented in this encounter Miscellaneous Notes Consult Note - Daphne Shahid MD - 07/14/2017 11:46 AM EST Heart Failure Service Inpatient Consult Note Gregory Hoang Date of : 1945 Age: 72 y.o. Today's date: 07/14/17 PCP: Lovely Vicente MD PERFECT BIND MACHINE OPERATOR: None Place of Service: [facility] Reason for Consult: Dr. Webber has requested [...] SETUP performed by Manny Mcknight MD at [facility] OR ??? PRO CABG, ARTERIAL, SINGLE N/A 07/07/2017 @CABG, USING ARTERIAL GRAFT;SINGLE ARTERIAL GRAFT (WRVU 33.75) performed by Yuan Webber MD at [facility] OR ??? PRO CABG, ARTERY-VEIN, TWO N/A 07/07/2017 @CABG, TWO VENOUS GRAFTS & ARTERIAL GRAFT (WRVU 7.93) performed by Yuan Webber MD at [facility] OR ??? PRO COLONOSCOPY, REMV LESN, SNARE 01/16/2014 COLONOSCOPY, POLYPECTOMY, REMOVAL LESION BY SNARE performed by Nohemi Jaimes MD at [facility] ENDOSCOPY ??? PRO ENDOSCOPY W/VIDEO-ASST VEIN HARVEST, CABG Right 07/07/2017 ENDOSCOPIC HARVEST VEIN(S) FOR CABG (WRVU 0.31) performed by Yuan Webber MD at [facility] OR ??? PRO THYROIDECTOMY 03/28/2013 THYROIDECTOMY, TOTAL OR COMPLETE performed by Manny Mcknight MD at [facility] OR Outpt Meds: Current Outpatient [...] following studies: EKG 07/14/17: NSR 75 bpm, DIRECTOR OF APPLICATION DEVELOPMENT anterior infarct, LAD CXR 07/11/17: FINDINGS: Sternotomy wires. The patient has been extubated, left chest tube removed, and Vancouver-Suzi catheter removed since the 07/07/2017 study. Atelectasis [...] was discussed with Zehra. Jaden Kelley MD Cash Posting Specialist Pager [phone] CARDIOLOGY ATTENDING NOTE Patient: Gregory Hoang Date [...] heart failure clinic. DAPHNE SHAHID MD Pager [phone] Plan of Care - Alden Chavarria PTA [...] home with assist Alden Chavarria PTA Pager: [phone] Inpatient Physical Therapy Problem: Acute Rehab Services [...] sit/sit to supine -- Bed Mobility Goal, [place] Level supervision required -- Bed Mobility Goal, [...] - 3 days -- Gait Training Goal, [place] Level supervision required -- Gait Training Goal, [...] days -- Transfer Training Goal, Activity Type ygq-ei-dimzx/pcnnv-lb-nmu;jkp-ja-wyzas/rqzdf-gq-das;toilet -- Transfer Train Goal, [place] Level supervision required -- Transfer Training Goal, [...] keeping present for 2 days per family. Associate Financial Analyst noted of frustrations, house keeping sent to room. Patient offered showered twice, refused. at bedside, frustrated that shower not complete, informed that patient had refused several times. requesting to see ACTIVITY MANAGER, paged sent to Martha, will come to bedside (middle of consult). not willing to wait, Martha notified that family had gone home. Encouraged to come for morning rounds a t 8am. Diabetes team at bedside - insulin adjustments made. Call cabello in reach. Continue to monitor. PLAN MOVING FORWARD: Ambulate, dressing changes BID, Please change drsg at 4am per Martha ACTIVITY MANAGER request. INDIVIDUALIZED FALL PREVENTION INTERVENTIONS: Patient-specific [...] levels on the lower side, 60ml of [place] juice given after a FS of 80. [...] monitoring required during toileting and ADLs]: RN ASSOCIATE CURATOR Surveillance [continuous indirect monitoring]: Barrett Monitor CPG [...] Anticipated Discharge Disposition: home with assist Pager: [phone] CLARISSA SEGAL, PT 07/12/2017 Physical Therapy Rehabilitation [...] to sit/sit to supine Bed Mobility Goal, [place] Level supervision required Bed Mobility Goal, Additional Goal adheres to psternal precautions for transfer Goal: Gait Training Goal Stand Alone Therapy Goal Outcome: Ongoing (Interventions Implemented as Appropriate) 07/12/17 1225 Gait Training Goal Gait Training Goal, Date Established 07/12/17 Gait Training Goal, Time to Achieve 2 - 3 days Gait Training Goal, [place] Level supervision required Gait Training Goal, Assist [...] 3 days Transfer Training Goal, Activity Type nfh-mf-tkeek/hakka-bg-zfe;skj-lw-dtnac/ehods-br-fmt;toilet Transfer Train Goal, [place] Level supervision required Transfer Training Goal, Additional Goal adheres to sternal precautions during transfer Consult Note - Octavia Vaughn RN - 07/12/2017 10:50 AM EST [facility] CARDIAC REHABILITATION Gregory Hoang was seen today regarding participation in the outpatient Phase 2 Cardiac Rehabilitation at [facility]. The patient agrees to a referral to [...] IV site, amio to other piv and RESOURCE PROTECTION SPECIALIST at bedside to help assess, IV [...] staff, he stood and marched in place. [place] weak, wanting to sit back down. Remained [...] Health/Prescription Coverage: Primary Insurance: MEDICARE Secondary Insurance: [email or web address] [place] Prescription Coverage: yes Preferred Pharmacy: [facility] Other: none Primary Care Provider: Lovely Vicente MD [phone] Patient/Caregiver Goals of Treatment:live and get my breath back Potential Needs for Transition of Care: Rehab/SNF: [facility] Home Health: NA DME: TBD Dialysis: na Community Resources: available Transportation: yes Other: none Anticipated Barriers to Discharge/Special Considerations: none Plan: Likely SNF Rehab before home A member of the Care Management team will continue to monitor progress, follow for continuity of care and assist with transition of care planning. ERLIN Weiss Pager: [phone] Consult Note - Katerin Azul RN - [...] patient W/E coverage, Dr. Jeane Tatum, pager [phone] Katerin Azul APRN Endocrinology Diabetes Management Pager [phone] Plan of Care - Stephanie Godoy, RN [...] Webber MD - 07/07/2017 6:27 PM EST [facility] Operative Note Patient Name: Gregory Hoang : [id number] MR#: [id number] Case Date: 07/07/2017 Surgeon: Surgeon(s) and Role: * Yuan Webber MD - Primary * Michael Drake PA - Physician Building Stonecutter * Linda Flores PA - Physician Building Stonecutter Preoperative diagnosis: 3VD Postoperative diagnosis: CAD, severe [...] Operative Note Patient Name: Gregory Hoang : [id number] MR#: [id number] Case Date: 07/07/2017 Surgeon: Surgeon(s) and Role: * Yuan Webber MD - Primary * Michael Drake PA - Physician Building Stonecutter * Linda Flores PA - Physician Building Stonecutter Preoperative diagnosis: 3VD Postoperative diagnosis: CAD, severe [...] (reference Cardiac: ACS (Acute Coronary Syndrome) (Adult) [facility]). 07/07/17621 Cardiac: ACS (Acute Coronary Syndrome) Problems [...] Hahn, MS3 [employer] [facility] Cardiology S1 (Pager [phone]) Plan of Care - Emelia Ibarra RN [...] [facility] MAIN OR Social History: Social History [...] with other involved physicians Yuan Webber MD [phone] Med Student Progress Note - Katty Hahn [...] or BiPAP - s/p lasix in the flue dust laborer, was net -1.5L - s/p plavix [...] [facility] [place] [place] Cardiology S1 (Pager [phone]) Plan of Care - Stephanie Godoy RN - 07/06/2017 5:00 AM EST Problem: Patient Care Overview Goal: Plan of Care Review 07/06/17 5776 Coping/Psychosocial Plan Of Care Reviewed With patient;family [...] in urinal without difficulty. Lasix given in flue dust laborer, 1.4 L out at this time. [...] Outcome: Ongoing (Interventions Implemented as Appropriate) 07/06/17 6546 Cardiac: ACS (Acute Coronary Syndrome) Problems Assessed [...] Cardiology Zulma Dolan MD [facility] [place] [address] (Wo rk) 05/28/2022 Laboratory Appointment Lab 05/28/2022 Office Visit Cardiology Zulma Dolan MD [facility] [place] [address] Liz Poole PA [facility] [place] [address] 06/10/2022 Office Visit Dermatology Laura Scherer MD [facility] [address] [place], [place] [address] (Wo rk) Scheduled Orders [...] procedure are i n the results section. FENCE ERECTOR SCAN 07/15/2017 12:00 Res ults for this [...] Routine 07/08/2017 4:00 Results f or this ([facility] AM EST procedure are i n the [...] Routine 07/07/2017 5:15 Results f or this ([facility]) AM EST procedure are i n the [...] Routine 07/06/2017 7:40 Results f or this ([facility]) PM EST procedure are i n the [...] Timed 07/06/2017 2:10 Results f or this ([facility] PM EST procedure are i [...] section. TYPE AND SCREEN Routine 07/06/2017 12:00 ([facility]ANDA) PM EST APTT STAT 07/06/2017 11:24 Results [...] Routine 07/06/2017 8:10 Results f or this ([facility]) AM EST procedure are i n the [...] Routine 07/06/2017 2:20 Results f or this ([facility]) AM EST procedure are i n the [...] Routine 07/05/2017 8:20 Results f or this ([facility]) PM EST procedure are i n the [...] Timed 07/05/2017 4:55 Results f or this ([facility] PM EST procedure are i [...] 2017 EXAMINATION: XR CHEST PA AND LATERAL ([employer]) CLINICAL HISTORY: CABG x 3 TECHNIQUE: PA [...] Teague APRN IMG DX ORDERABLES SCAN DOC: FENCE ERECTOR (07/15/2017 12:00 AM EST) Narrative 07/15/2017 12:00 [...] Signature POC Glucose 186 65 - 199 [facility] mg/dL [facility] Comment: Supplemental ranges: <140 mg/dL before meals <180 mg/dL all other times of the day Specimen Anatomical Collection Method Collection Time Receive d Time (Source) Location / / Volume Laterality Blood specimen 07/14/2017 11:56 7 (specimen) AM EST 11:56 AM EST Yuan Webber MD POINT OF CARE TEST ORDERABLE S Performing Organization Address City/State/[place] [address] POCT Glucose (07/14/2017 7:52 AM EST) athologist Signature POC Glucose 126 65 - 199 [facility] mg/dL [facility] Comment: Supplemental ranges: <140 mg/dL before meals <180 mg/dL all other times of the day Specimen Anatomical Collection Method Collection Time Receive d Time (Source) Location / / Volume Laterality Blood specimen 07/14/2017 7:52 AM 017 7:52 (specimen) EST AM EST Yuan Webber MD POINT OF CARE TEST ORDERABLE S Performing Organization Address [facility]/[place]IP [place] [address] (ABNORMAL) Prothrombin Time (07/14/2017 [...] Wilson APRN HEMATOLOGY ORDERABLES Performing Organization Address City/[facility] [place] [address] Potassium (07/14/2017 4:46 AM EST) athologist Signature Potassium 4.3 3.5 - 5.0 [facility] mmol/L [facility] Comment: Please note: ??Patients with WBC [...] Address City/State/ZIP Code Phon e Number [address] POCT Glucose (07/14/2017 4:34 AM EST) athologist Signature POC Glucose 115 65 - 199 [place] mg/dL [facility] Comment: Supplemental ranges: <140 mg/dL before meals <180 mg/dL all other times of the day Specimen Anatomical Collection Method Collection Time Receive d Time (Source) Location / / Volume Laterality Blood specimen 07/14/2017 4:34 AM 017 4:34 (specimen) EST AM EST Yuan Webber MD POINT OF CARE TEST ORDERABLE S Performing Organization Address City/[facility]/ZIP Code Phon e Number [address] POCT Glucose (07/13/2017 11:33 PM EST) athologist Signature POC Glucose 132 65 - 199 [place] mg/dL [facility] Comment: Supplemental ranges: <140 mg/dL before meals <180 mg/dL all other times of the day Specimen Anatomical Collection Method Collection Time Receive d Time (Source) Location / / Volume Laterality Blood specimen 07/13/2017 11:33 7 (specimen) PM EST 11:33 PM EST Yuan Webber MD POINT OF CARE TEST ORDERABLE S Performing Organization Address City/[facility]/ZIP Code Ph[place] [address] POCT Glucose (07/13/2017 9:25 PM EST) athologist Signature POC Glucose 121 65 - 199 [place] mg/dL [facility] Comment: Supplemental ranges: <140 mg/dL before meals <180 mg/dL all other times of the day Specimen Anatomical Collection Method Collection Time Receive d Time (Source) Location / / Volume Laterality Blood specimen 07/13/2017 9:25 PM 017 9:25 (specimen) EST PM EST Yuan Webber MD POINT OF CARE TEST ORDERABLE S Performing Organization Address City/State/ZIP Code Phon e Number [address] POCT Glucose (07/13/2017 4:55 PM EST) athologist Signature POC Glucose 79 65 - 199 [facility] mg/dL [facility] Comment: Supplemental ranges: <140 mg/dL before meals <180 mg/dL all other times of the day Specimen Anatomical Collection Method Collection Time Receive d Time (Source) Location / / Volume Laterality Blood specimen 07/13/2017 4:55 PM 017 4:55 (specimen) EST PM EST Yuan Webber MD POINT OF CARE TEST ORDERABLE S Performing Organization Address City/State/ZIP Code Phon e Number [address] POCT Glucose (07/13/2017 11:16 AM EST) athologist Signature POC Glucose 163 65 - 199 [facility] mg/dL [facility] Comment: Supplemental ranges: <140 mg/dL before meals <180 mg/dL all other times of the day Specimen Anatomical Collection Method Collection Time Receive d Time (Source) Location / / Volume Laterality Blood specimen 07/13/2017 11:16 7 (specimen) AM EST 11:16 AM EST Yuan Webber MD POINT OF CARE TEST ORDERABLE S Performing Organization Address City/State/ZIP Code Phon e Number [place] [id number] POCT Glucose (07/13/2017 8:07 AM EST) athologist Signature POC Glucose 96 65 - 199 [facility] mg/dL [facility] Comment: Supplemental ranges: <140 mg/dL before meals <180 mg/dL all other times of the day Specimen Anatomical Collection Method Collection Time Receive d Time (Source) Location / / Volume Laterality Blood specimen 07/13/2017 8:07 AM 017 8:07 (specimen) EST AM EST Yuan Webber MD POINT OF CARE TEST ORDERABLE S Performing Organization Address City/State/[place] [address] (ABNORMAL) Prothrombin Time (07/13/2017 [...] Organization Address City/State/[place] [address] (ABNORMAL) Basic Metabolic Panel (non-fasting) (07/13/2017 4:26 AM EST) athologist Signature Glucose Lvl 95 65 - 199 [facility] mg/dL [facility] Comment: Diabetes: >=200 mg/dL plus symp toms BUN 25 (H) 10 - 20 mg/dL [facility] Creatinine 1.19 0.80 - 1.50 mg/dL [facility] Sodium 143 135 - 145 mmol/L [facility] Potassium 3.7 3.5 - 5.0 mmol/L [facility] [...] Calcium 7.7 (L) 8.5 - 10.5 mg/dL [facility] Estimated GFR 60 >=60 [facility] Comment: The reported eGFR should be multiplied b y 1.2 for patients. The MDRD is not an appropriate measure o f renal function for patients with body mass extremes or in patients with acute kidney failure. http://[employer]/DHnkdep http://[employer]/DHMCnkf Specimen Anatomical Collection Method Collection Time Receive d Time (Source) Location / / Volume Laterality Blood specimen 07/13/2017 4:26 AM 017 4:46 (specimen) EST AM EST Resulting Agency Comment Spec In Lab Makayla Wilson APRN CHEMISTRY ORDERABLES Performing Organization Address City/[facility]/ZIP Code Phon e Number [address] POCT Glucose (07/13/2017 3:52 AM EST) athologist Signature POC Glucose 93 65 - 199 [facility] mg/dL [facility] Comment: Supplemental ranges: <140 mg/dL before meals <180 mg/dL all other times of the day Specimen Anatomical Collection Method Collection Time Receive d Time (Source) Location / / Volume Laterality Blood specimen 07/13/2017 3:52 AM 017 3:52 (specimen) EST AM EST Yuan Webber MD POINT OF CARE TEST ORDERABLE S Performing Organization Address City/State/ZIP Code Phon e Number [address] POCT Glucose (07/13/2017 12:21 AM EST) athologist Signature POC Glucose 80 65 - 199 [facility] mg/dL [facility] Comment: Supplemental ranges: <140 mg/dL before meals <180 mg/dL all other times of the day Specimen Anatomical Collection Method Collection Time Receive d Time (Source) Location / / Volume Laterality Blood specimen 07/13/2017 12:21 7 (specimen) AM EST 12:21 AM EST Yuan Webber MD POINT OF CARE TEST ORDERABLE S Performing Organization Address City/State/ZIP Code Phon e Number [address] POCT Glucose (07/12/2017 8:22 PM EST) P athologist Signature POC Glucose 119 65 - 199 [place] mg/dL [facility] Comment: Supplemental ranges: <140 mg/dL before meals <180 mg/dL all other times of the day Specimen Anatomical Collection Method Collection Time Receive d Time (Source) Location / / Volume Laterality Blood specimen 07/12/2017 8:22 PM 017 8:22 (specimen) EST PM EST Yuan Webber MD POINT OF CARE TEST ORDERABLE S Performing Organization Address City/[facility]/ZIP Code Phon e Number [address] POCT Glucose (07/12/2017 4:02 PM EST) athologist Signature POC Glucose 114 65 - 199 [place] mg/dL [facility] Comment: Supplemental ranges: <140 mg/dL before meals <180 mg/dL all other times of the day Specimen Anatomical Collection Method Collection Time Receive d Time (Source) Location / / Volume Laterality Blood specimen 07/12/2017 4:02 PM 017 4:02 (specimen) EST PM EST Yuan Webber MD POINT OF CARE TEST ORDERABLE S Performing Organization Address City/State/ZIP Code Phon e Number [address] POCT Glucose (07/12/2017 11:28 AM EST) P athologist Signature POC Glucose 164 65 - 199 [facility] mg/dL [facility] Comment: Supplemental ranges: <140 mg/dL before meals <180 mg/dL all other times of the day Specimen Anatomical Collection Method Collection Time Receive d Time (Source) Location / / Volume Laterality Blood specimen 07/12/2017 11:28 7 (specimen) AM EST 11:28 AM EST Yuan Webber MD POINT OF CARE TEST ORDERABLE S Performing Organization Address City/State/ZIP Code Phon e Number [address] POCT Glucose (07/12/2017 7:34 AM EST) athologist Signature POC Glucose 109 65 - [address] [facility] Comment: Supplemental ranges: <140 mg/dL before meals <180 mg/dL all other times of the day Specimen Anatomical Collection Method Collection Time Receive d Time (Source) Location / / Volume Laterality Blood specimen 07/12/2017 7:34 AM 017 7:34 (specimen) EST AM EST Yuan Webber MD POINT OF CARE TEST ORDERABLE S Performing Organization Address City/State/[place] [address] (ABNORMAL) Basic Metabolic Panel (non-fasting) (07/12/2017 4:11 AM EST) athologist Signature Glucose Lvl 92 65 - [address] [facility] Comment: Diabetes: >=200 mg/dL plus symp toms BUN 31 (H) 10 - 20 mg/dL [facility] Creatinine 1.23 0.80 - 1.50 mg/dL [facility] Sodium 145 135 - 145 mmol/L [facility] Potassium Not Perf 3.5 - 5.0 mmol/L [facility] Comment: Duplicate order Please note: [...] Not Calculated 5 - 15 mmol/L [facility] Calcium 8.1 (L) 8.5 - 10.5 mg/dL [facility] Estimated GFR 58 (L) >=60 [facility] Comment: The reported eGFR should be multiplied b y 1.2 for patients. The MDRD is not an appropriate measure o f renal function for patients with body mass extremes or in patients with acute kidney failure. http://[employer]/DHnkdep http://[employer]/DHMCnkf Specimen Anatomical Collection Method Collection Time Receive d Time (Source) Location / / Volume Laterality Blood specimen 07/12/2017 4:11 AM 017 8:57 (specimen) EST AM EST Resulting Agency Comment [facility] CHEMISTRY ORDERABLES Performing Organization Address [facility] [place] [address] (ABNORMAL) Prothrombin Time (07/12/2017 [...] [place] STACIE HEMATOLOGY ORDERABLES Performing Organization Address City/[facility] Phon e Number [address] Potassium (07/12/2017 4:11 AM EST) P athologist Signature Potassium 3.8 3.5 - 5.0 [facility]/L [facility] Comment: Please note: ??Patients with WBC [...] Wilson APRN CHEMISTRY ORDERABLES Performing Organization Address City/[facility]/ZIP Code Phon e Number [address] POCT Glucose (07/12/2017 4:10 AM EST) athologist Signature POC Glucose 90 65 - [address] [facility] Comment: Supplemental ranges: <140 mg/dL before meals <180 mg/dL all other times of the day Specimen Anatomical Collection Method Collection Time Receive d Time (Source) Location / / Volume Laterality Blood specimen 07/12/2017 4:10 AM 017 4:10 (specimen) EST AM EST Yuan Webber MD POINT OF CARE TEST ORDERABLE S Performing Organization Address City/[facility]/ZIP Code Phon e Number [address] POCT Glucose (07/11/2017 11:57 PM EST) athologist Signature POC Glucose 98 65 - 199 [facility] mg/[facility] Comment: Supplemental ranges: <140 mg/dL before meals <180 mg/dL all other times of the day Specimen Anatomical Collection Method Collection Time Receive d Time (Source) Location / / Volume Laterality Blood specimen 07/11/2017 11:57 7 (specimen) PM EST 11:57 PM EST Yuan Webber MD POINT OF CARE TEST ORDERABLE S Performing Organization Address City/[facility]/ZIP Code Phon e Number [address] POCT Glucose (07/11/2017 8:32 PM EST) P athologist Signature POC Glucose 146 65 - 199 [place] mg/dL [facility] Comment: Supplemental ranges: <140 mg/dL before meals <180 mg/dL all other times of the day Specimen Anatomical Collection Method Collection Time Receive d Time (Source) Location / / Volume Laterality Blood specimen 07/11/2017 8:32 PM 017 8:32 (specimen) EST PM EST Yuan Webber MD POINT OF CARE TEST ORDERABLE S Performing Organization Address City/State/ZIP Code Phon e Number [facility] [place] [address] XR Chest PA & [...] e xtubated, left chest tube removed, and Vancouver-Suzi catheter removed since the study. Atelectasis at [...] e xtubated, left chest tube removed, and [place]-Suzi catheter removed since the study. Atelectasis at [...] (H) 65 - 199 [place] mg/dL [facility] Comment: Supplemental ranges: <140 mg/dL before meals <180 mg/dL all other times of the day Specimen Anatomical Collection Method Collection Time Receive d Time (Source) Location / / Volume Laterality Blood specimen 07/11/2017 4:05 PM 017 4:05 (specimen) EST PM EST Yuan Webber MD POINT OF CARE TEST ORDERABLE S Performing Organization Address City/State/[place] [address] POCT Glucose (07/11/2017 11:55 AM EST) athologist Signature POC Glucose 176 65 - 199 [place] mg/dL [facility] Comment: Supplemental ranges: <140 mg/dL before meals <180 mg/dL all other times of the day Specimen Anatomical Collection Method Collection Time Receive d Time (Source) Location / / Volume Laterality Blood specimen 07/11/2017 11:55 7 (specimen) AM EST 11:55 AM EST Yuan Webber MD POINT OF CARE TEST ORDERABLE S Performing Organization Address City/State/Z[place] [address] POCT Glucose (07/11/2017 7:53 AM EST) athologist Signature POC Glucose 189 65 - 199 [place] mg/dL [facility] Comment: Supplemental ranges: <140 mg/dL before meals <180 mg/dL all other times of the day Specimen Anatomical Collection Method Collection Time Receive d Time (Source) Location / / Volume Laterality Blood specimen 07/11/2017 7:53 AM 017 7:53 (specimen) EST AM EST Yuan Webber MD POINT OF CARE TEST ORDERABLE S Performing Organization Address City/[facility]/ZIP Code Phon e Number [address] POCT Glucose (07/11/2017 4:22 AM EST) athologist Signature POC Glucose 151 65 - 199 [place] mg/dL [facility] Comment: Supplemental ranges: <140 mg/dL before meals <180 mg/dL all other times of the day Specimen Anatomical Collection Method Collection Time Receive d Time (Source) Location / / Volume Laterality Blood specimen 07/11/2017 4:22 AM 017 4:22 (specimen) EST AM EST Yuan Webber MD POINT OF CARE TEST ORDERABLE S Performing Organization Address City/[facility] [place] [address] Potassium (07/11/2017 2:20 AM EST) athologist Signature Potassium 4.5 3.5 - 5.0 [facility]L [facility] Comment: Please note: ??Patients with WBC [...] Webber MD CHEMISTRY ORDERABLES Performing Organization Address City/[facility]/ZIP Code Phon e Number [address] POCT Glucose (07/11/2017 12:17 AM EST) athologist Signature POC Glucose 162 65 - 199 [facility] mg/[facility] Comment: Supplemental ranges: <140 mg/dL before meals <180 mg/dL all other times of the day Specimen Anatomical Collection Method Collection Time Receive d Time (Source) Location / / Volume Laterality Blood specimen 07/11/2017 12:17 7 (specimen) AM EST 12:17 AM EST Yuan Webber MD POINT OF CARE TEST ORDERABLE S Performing Organization Address City/State/Z[place] [address] POCT Glucose (07/10/2017 8:47 PM EST) athologist Signature POC Glucose 191 65 - 199 [place] mg/dL [facility] Comment: Supplemental ranges: <140 mg/dL before meals <180 mg/dL all other times of the day Specimen Anatomical Collection Method Collection Time Receive d Time (Source) Location / / Volume Laterality Blood specimen 07/10/2017 8:47 PM 017 8:47 (specimen) EST PM EST Yuan Webber MD POINT OF CARE TEST ORDERABLE S Performing Organization Address City/State/Z[place] [address] POCT Glucose (07/10/2017 4:06 PM EST) athologist Signature POC Glucose 131 65 - 199 [place] mg/dL [facility] Comment: Supplemental ranges: <140 mg/dL before meals <180 mg/dL all other times of the day Specimen Anatomical Collection Method Collection Time Receive d Time (Source) Location / / Volume Laterality Blood specimen 07/10/2017 4:06 PM 017 4:06 (specimen) EST PM EST Yuan Webber MD POINT OF CARE TEST ORDERABLE S Performing Organization Address City/State/Z[place] [address] POCT Glucose (07/10/2017 3:08 PM EST) athologist Signature POC Glucose 151 65 - 199 [place] mg/dL [facility] Comment: Supplemental ranges: <140 mg/dL before meals <180 mg/dL all other times of the day Specimen Anatomical Collection Method Collection Time Receive d Time (Source) Location / / Volume Laterality Blood specimen 07/10/2017 3:08 PM 017 3:08 (specimen) EST PM EST Yuan Webber MD POINT OF CARE TEST ORDERABLE S Performing Organization Address City/State/ZIP Code Phon e Number [address] POCT Glucose (07/10/2017 2:25 PM EST) athologist Signature POC Glucose 146 65 - 199 [place] mg/dL [facility] Comment: Supplemental ranges: <140 mg/dL before meals <180 mg/dL all other times of the day Specimen Anatomical Collection Method Collection Time Receive d Time (Source) Location / / Volume Laterality Blood specimen 07/10/2017 2:25 PM 017 2:25 (specimen) EST PM EST Yuan Webber MD POINT OF CARE TEST ORDERABLE S Performing Organization Address City/State/Z[place] [address] POCT Glucose (07/10/2017 1:23 PM EST) athologist Signature POC Glucose 166 65 - 199 [place] mg/dL [facility] Comment: Supplemental ranges: <140 mg/dL before meals <180 mg/dL all other times of the day Specimen Anatomical Collection Method Collection Time Receive d Time (Source) Location / / Volume Laterality Blood specimen 07/10/2017 1:23 PM 017 1:23 (specimen) EST PM EST Yuan Webber MD POINT OF CARE TEST ORDERABLE S Performing Organization Address City/State/[place] [address] POCT Glucose (07/10/2017 11:52 AM EST) athologist Signature POC Glucose 157 65 - 199 [place] mg/dL [facility] Comment: Supplemental ranges: <140 mg/dL before meals <180 mg/dL all other times of the day Specimen Anatomical Collection Method Collection Time Receive d Time (Source) Location / / Volume Laterality Blood specimen 07/10/2017 11:52 7 (specimen) AM EST 11:52 AM EST Yuan Webber MD POINT OF CARE TEST ORDERABLE S Performing Organization Address City/[facility]/ZIP Code Phon e Number [address] POCT Glucose (07/10/2017 11:01 AM EST) P athologist Signature POC Glucose 158 65 - 199 [place] mg/dL [facility] Comment: Supplemental ranges: <140 mg/dL before meals <180 mg/dL all other times of the day Specimen Anatomical Collection Method Collection Time Receive d Time (Source) Location / / Volume Laterality Blood specimen 07/10/2017 11:01 7 (specimen) AM EST 11:01 AM EST Yuan Webber MD POINT OF CARE TEST ORDERABLE S Performing Organization Address City/[facility]/ZIP Code Phon e Number [address] POCT Glucose (07/10/2017 9:54 AM EST) P athologist Signature POC Glucose 160 65 - 199 [place] mg/dL [facility] Comment: Supplemental ranges: <140 mg/dL before meals <180 mg/dL all other times of the day Specimen Anatomical Collection Method Collection Time Receive d Time (Source) Location / / Volume Laterality Blood specimen 07/10/2017 9:54 AM 017 9:54 (specimen) EST AM EST Yuan Webber MD POINT OF CARE TEST ORDERABLE S Performing Organization Address City/State/ZIP Code Phon e Number [address] POCT Glucose (07/10/2017 8:58 AM EST) P athologist Signature POC Glucose 183 65 - 199 [facility] mg/dL [facility] Comment: Supplemental ranges: <140 mg/dL before meals <180 mg/dL all other times of the day Specimen Anatomical Collection Method Collection Time Receive d Time (Source) Location / / Volume Laterality Blood specimen 07/10/2017 8:58 AM 017 8:58 (specimen) EST AM EST Yuan Webber MD POINT OF CARE TEST ORDERABLE S Performing Organization Address City/State/ZIP Code Phon e Number [address] POCT Glucose (07/10/2017 8:01 AM EST) athologist Signature POC Glucose 173 65 - 199 [place] mg/dL [facility] Comment: Supplemental ranges: <140 mg/dL before meals <180 mg/dL all other times of the day Specimen Anatomical Collection Method Collection Time Receive d Time (Source) Location / / Volume Laterality Blood specimen 07/10/2017 8:01 AM 017 8:01 (specimen) EST AM EST Yuan Webber MD POINT OF CARE TEST ORDERABLE S Performing Organization Address City/State/ZIP Code Phon e Number [address] POCT Glucose (07/10/2017 7:05 AM EST) athologist Signature POC Glucose 166 65 - 199 [place] mg/dL [facility] LABORATORY Comment: Supplemental ranges: <140 mg/dL before meals <180 mg/dL all other times of the day Specimen Anatomical Collection Method Collection Time Receive d Time (Source) Location / / Volume Laterality Blood specimen 07/10/2017 7:05 AM 017 7:05 (specimen) EST AM EST Yuan Webber MD POINT OF CARE TEST ORDERABLE S Performing Organization Address City/State/[place] [address] POCT Glucose (07/10/2017 6:00 AM EST) athologist Signature POC Glucose 162 65 - 199 [place] mg/dL [facility] Comment: Supplemental ranges: <140 mg/dL before meals <180 mg/dL all other times of the day Specimen Anatomical Collection Method Collection Time Receive d Time (Source) Location / / Volume Laterality Blood specimen 07/10/2017 6:00 AM 017 6:00 (specimen) EST AM EST Yuan Webber MD POINT OF CARE TEST ORDERABLE S Performing Organization Address City/State/ZIP Code Phon e Number [address] (ABNORMAL) Differential, Automated (07/10/2017 4:28 AM EST) [facility] Method Time Signature Neutrophils % 87.9 % [facility] LABORATORY Neutr Abs (ANC) 10.70 (H) 1.70 - [facility] 6.10 [facility] x10(3)/[facility] L LABORATORY Lymphocytes % 3.9 % [facility] LABORATORY Lymphocytes Abs 0.5 (L) 0.9 - 3.2 [facility] x10(3)/[facility] LABORATORY Monocytes % 7.0 % [facility] LABORATORY Monocyte Abs 0.8 0.3 - 0.9 [facility] x10(3)/[facility] LABORATORY Eosinophils % 0.3 % [facility] LABORATORY Eosinophils Abs 0.0 0.0 - 0.4 [facility] x10(3)/[facility] LABORATORY Basophils % 0.2 % [facility] LABORATORY Basophils Abs 0.0 0.0 - 0.1 [facility] x10(3)/[facility] LABORATORY Immature Gran % 0.70 % [...] Webber MD HEMATOLOGY ORDERABLES Performing Organization Address City/[facility]/[place] [address] (ABNORMAL) Hemogram (07/10/2017 4:28 AM EST) Analysis Performed At Patho logist Time Signature WBC 12.2 (H) 4.0 - 9.5 [facility] x10(3)/[facility] LABORATORY RBC 3.31 (L) 4.58 - [place] 5.54 [facility] x10(6)/[facility] LABORATORY Hemoglobin 9.8 (L) 13.7 [facility] 16.[facility] gm/dL [facility] Hematocrit 30.0 (L) 40.5 - [facility] 48.5 % [facility] LABORATORY MCV 90.6 82.9 - [facility] 93.1 [facility] LABORATORY MCH 29.6 27.5 - [facility] 32.1 pg [facility] LABORATORY MCHC 32.7 32.0 - [facility] 35.7 gm/dL [facility] LABORATORY Platelets 135 (L) 145 - 357 [facility] x10(3)/[facility] LABORATORY RDWSD 50.8 (H) 36.0 - [facility] 45.0 [facility] LABORATORY RDWCV 15.4 (H) 11.4 - [facility] 13.8 % [facility] LABORATORY MPV 10.0 7.6 - 12.9 [facility] LABORATORY nRBC % Auto 0.0 % [facility] LABORATORY nRBC Abs Auto 0.000 0.000 - [facility] 0.000 [facility] x10(3)/[facility] LABORATORY Specimen Anatomical Collection Method Collection Time Receive d Time (Source) Location / / Volume Laterality Blood specimen 07/10/2017 4:28 AM 017 4:36 (specimen) EST AM EST Resulting Agency Comment Spec In Lab Yuan Webber MD HEMATOLOGY ORDERABLES Performing Organization Address City/State/[place] [address] (ABNORMAL) Basic Metabolic Panel (non-fasting) (07/10/2017 4:28 AM EST) P athologist Signature Glucose Lvl 178 65 - 199 [facility] mg/dL [facility] Comment: Diabetes: >=200 mg/dL plus [...] Calcium 7.4 (L) 8.5 - 10.5 mg/dL [facility] LABORATORY Estimated GFR 60 >=60 [facility] LABORATORY Comment: The reported eGFR should be multiplied b y 1.2 for patients. The MDRD is not an appropriate measure o f renal function for patients with body mass extremes or in patients with acute kidney failure. http://[employer]/DHnkdep http://[employer]/DHMCnkf Specimen Anatomical Collection Method Collection Time Receive d Time (Source) Location / / Volume Laterality Blood specimen 07/10/2017 4:28 AM 017 4:36 (specimen) EST AM EST Resulting Agency Comment Spec In Lab Yuan Webber MD CHEMISTRY ORDERABLES Performing Organization Address City/State/[place] [address] POCT Glucose (07/10/2017 4:26 AM EST) P athologist Signature POC Glucose 176 65 - 199 [facility] mg/dL [facility] Comment: Supplemental ranges: <140 mg/dL before meals <180 mg/dL all other times of the day Specimen Anatomical Collection Method Collection Time Receive d Time (Source) Location / / Volume Laterality Blood specimen 07/10/2017 4:26 AM 017 4:26 (specimen) EST AM EST Yuan Webber MD POINT OF CARE TEST ORDERABLE S Performing Organization Address City/[facility]/ZIP Code Phon e Number [address] (ABNORMAL) POCT Glucose (07/10/2017 3:06 AM EST) P athologist Signature POC Glucose 204 (H) 65 - 199 [place] mg/dL [facility] Comment: Supplemental ranges: <140 mg/dL before meals <180 mg/dL all other times of the day Specimen Anatomical Collection Method Collection Time Receive d Time (Source) Location / / Volume Laterality Blood specimen 07/10/2017 3:06 AM 017 3:06 (specimen) EST AM EST Yuan Webber MD POINT OF CARE TEST ORDERABLE S Performing Organization Address City/[facility]/[place]IP [place] [address] (ABNORMAL) POCT Glucose (07/10/2017 2:10 AM EST) P athologist Signature POC Glucose 203 (H) 65 - 199 [facility] mg/dL [facility] Comment: Supplemental ranges: <140 mg/dL before meals <180 mg/dL all other times of the day Specimen Anatomical Collection Method Collection Time Receive d Time (Source) Location / / Volume Laterality Blood specimen 07/10/2017 2:10 AM 017 2:10 (specimen) EST AM EST Yuan Webber MD POINT OF CARE TEST ORDERABLE S Performing Organization Address City/State/ZIP Code Phon e Number [address] POCT Glucose (07/10/2017 1:09 AM EST) P athologist Signature POC Glucose 196 65 - 199 [facility] RYAN mg/dL [facility] Comment: Supplemental ranges: <140 mg/dL before meals <180 mg/dL all other times of the day Specimen Anatomical Collection Method Collection Time Receive d Time (Source) Location / / Volume Laterality Blood specimen 07/10/2017 1:09 AM 2 017 1:09 (specimen) EST AM EST Yuan Webber MD POINT OF CARE TEST ORDERABLE S Performing Organization Address City/State/ZIP Code Phon e Number [address] POCT Glucose (07/10/2017 12:10 AM EST) P athologist Signature POC Glucose 173 65 - 199 [place] mg/dL [facility] Comment: Supplemental ranges: <140 mg/dL before meals <180 mg/dL all other times of the day Specimen Anatomical Collection Method Collection Time Receive d Time (Source) Location / / Volume Laterality Blood specimen 07/10/2017 12:10 7 (specimen) AM EST 12:10 AM EST Yuan Webber MD POINT OF CARE TEST ORDERABLE S Performing Organization Address City/State/ZIP Code Phon e Number [address] POCT Glucose (07/09/2017 11:01 PM EST) athologist Signature POC Glucose 140 65 - 199 [place]HAORY[place] mg/dL [facility] Comment: Supplemental ranges: <140 mg/dL before meals <180 mg/dL all other times of the day Specimen Anatomical Collection Method Collection Time Receive d Time (Source) Location / / Volume Laterality Blood specimen 07/09/2017 11:01 7 (specimen) PM EST 11:01 PM EST Yuan Webber MD POINT OF CARE TEST ORDERABLE S Performing Organization Address City/State/ZIP Code Phon e Number [address] POCT Glucose (07/09/2017 10:05 PM EST) P athologist Signature POC Glucose 144 65 - 199 [facility] RYAN mg/dL [facility] Comment: Supplemental ranges: <140 mg/dL before meals <180 mg/dL all other times of the day Specimen Anatomical Collection Method Collection Time Receive d Time (Source) Location / / Volume Laterality Blood specimen 07/09/2017 10:05 7 (specimen) PM EST 10:05 PM EST Yuan Webber MD POINT OF CARE TEST ORDERABLE S Performing Organization Address City/State/ZIP Code Phon e Number [address] POCT Glucose (07/09/2017 9:31 PM EST) athologist Signature POC Glucose 121 65 - 199 [place]HAORY[place] mg/dL [facility] Comment: Supplemental ranges: <140 mg/dL before meals <180 mg/dL all other times of the day Specimen Anatomical Collection Method Collection Time Receive d Time (Source) Location / / Volume Laterality Blood specimen 07/09/2017 9:31 PM 017 9:31 (specimen) EST PM EST Yuan Webber MD POINT OF CARE TEST ORDERABLE S Performing Organization Address City/[facility]/ZIP Code Phon e Number [address] POCT Glucose (07/09/2017 9:03 PM EST) athologist Signature POC Glucose 98 65 - 199 [place] mg/dL [facility] Comment: Supplemental ranges: <140 mg/dL before meals <180 mg/dL all other times of the day Specimen Anatomical Collection Method Collection Time Receive d Time (Source) Location / / Volume Laterality Blood specimen 07/09/2017 9:03 PM 017 9:03 (specimen) EST PM EST Yuan Webber MD POINT OF CARE TEST ORDERABLE S Performing Organization Address City/[facility]/ZIP Code Phon e Number [address] POCT Glucose (07/09/2017 8:09 PM EST) athologist Signature POC Glucose 117 65 - 199 [place] mg/dL [facility] Comment: Supplemental ranges: <140 mg/dL before meals <180 mg/dL all other times of the day Specimen Anatomical Collection Method Collection Time Receive d Time (Source) Location / / Volume Laterality Blood specimen 07/09/2017 8:09 PM 017 8:09 (specimen) EST PM EST Yuan Webber MD POINT OF CARE TEST ORDERABLE S Performing Organization Address City/State/ZIP Code Phon e Number [address] POCT Glucose (07/09/2017 5:40 PM EST) athologist Signature POC Glucose 155 65 - 199 [place] ZHAORY[place] mg/dL [facility] Comment: Supplemental ranges: <140 mg/dL before meals <180 mg/dL all other times of the day Specimen Anatomical Collection Method Collection Time Receive d Time (Source) Location / / Volume Laterality Blood specimen 07/09/2017 5:40 PM 017 5:40 (specimen) EST PM EST Yuan Webber MD POINT OF CARE TEST ORDERABLE S Performing Organization Address City/State/ZIP Code Phon e Number [address] POCT Glucose (07/09/2017 4:24 PM EST) athologist Signature POC Glucose 164 65 - 199 [place] mg/dL [facility] Comment: Supplemental ranges: <140 mg/dL before meals <180 mg/dL all other times of the day Specimen Anatomical Collection Method Collection Time Receive d Time (Source) Location / / Volume Laterality Blood specimen 07/09/2017 4:24 PM 017 4:24 (specimen) EST PM EST Yuan Webber MD POINT OF CARE TEST ORDERABLE S Performing Organization Address City/State/ZIP Code Phon e Number [address] POCT Glucose (07/09/2017 3:19 PM EST) athologist Signature POC Glucose 166 65 - 199 [place] mg/dL [facility] Comment: Supplemental ranges: <140 mg/dL before meals <180 mg/dL all other times of the day Specimen Anatomical Collection Method Collection Time Receive d Time (Source) Location / / Volume Laterality Blood specimen 07/09/2017 3:19 PM 017 3:19 (specimen) EST PM EST Yuan Wbeber MD POINT OF CARE TEST ORDERABLE S Performing Organization Address City/State/[place] [address] POCT Glucose (07/09/2017 2:26 PM EST) athologist Signature POC Glucose 179 65 - 199 [place]HA[place] mg/dL [facility] Comment: Supplemental ranges: <140 mg/dL before meals <180 mg/dL all other times of the day Specimen Anatomical Collection Method Collection Time Receive d Time (Source) Location / / Volume Laterality Blood specimen 07/09/2017 2:26 PM 017 2:26 (specimen) EST PM EST Yuan Webber MD POINT OF CARE TEST ORDERABLE S Performing Organization Address City/[facility]/[place]IP [place] [address] (ABNORMAL) POCT Glucose (07/09/2017 1:29 PM EST) athologist Signature POC Glucose 210 (H) 65 - 199 [place] mg/dL [facility] Comment: Supplemental ranges: <140 mg/dL before meals <180 mg/dL all other times of the day Specimen Anatomical Collection Method Collection Time Receive d Time (Source) Location / / Volume Laterality Blood specimen 07/09/2017 1:29 PM 017 1:29 (specimen) EST PM EST Yuan Webber MD POINT OF CARE TEST ORDERABLE S Performing Organization Address City/[facility]/ZIP [place] [address] POCT Glucose (07/09/2017 12:20 PM EST) athologist Signature POC Glucose 172 65 - 199 [place]HA[place] mg/dL [facility] Comment: Supplemental ranges: <140 mg/dL before meals <180 mg/dL all other times of the day Specimen Anatomical Collection Method Collection Time Receive d Time (Source) Location / / Volume Laterality Blood specimen 07/09/2017 12:20 7 (specimen) PM EST 12:20 PM EST Yuan Webber MD POINT OF CARE TEST ORDERABLE S Performing Organization Address City/State/ZIP Code Phon e Number [address] POCT Glucose (07/09/2017 11:24 AM EST) P athologist Signature POC Glucose 156 65 - 199 [place]HA[place] mg/dL [facility] Comment: Supplemental ranges: <140 mg/dL before meals <180 mg/dL all other times of the day Specimen Anatomical Collection Method Collection Time Receive d Time (Source) Location / / Volume Laterality Blood specimen 07/09/2017 11:24 7 (specimen) AM EST 11:24 AM EST Yuan Webber MD POINT OF CARE TEST ORDERABLE S Performing Organization Address City/State/ZIP Code Phon e Number [address] POCT Glucose (07/09/2017 11:11 AM EST) athologist Signature POC Glucose 172 65 - 199 [place] mg/dL [facility] Comment: Supplemental ranges: <140 mg/dL before meals <180 mg/dL all other times of the day Specimen Anatomical Collection Method Collection Time Receive d Time (Source) Location / / Volume Laterality Blood specimen 07/09/2017 11:11 7 (specimen) AM EST 11:11 AM EST Yuan Webber MD POINT OF CARE TEST ORDERABLE S Performing Organization Address City/State/ZIP Code Phon e Number [place], [place] [id number] [place] [address] POCT Glucose (07/09/2017 10:08 AM EST) P athologist Signature POC Glucose 176 65 - 199 [place] ZHAORY[place] mg/dL [facility] Comment: Supplemental ranges: <140 mg/dL before meals <180 mg/dL all other times of the day Specimen Anatomical Collection Method Collection Time Receive d Time (Source) Location / / Volume Laterality Blood specimen 07/09/2017 10:08 7 (specimen) AM EST 10:08 AM EST Yuan Webber MD POINT OF CARE TEST ORDERABLE S Performing Organization Address City/State/ZIP [place] [address] POCT Glucose (07/09/2017 8:02 AM EST) P athologist Signature POC Glucose 178 65 - 199 [facility] mg/dL [facility] Comment: Supplemental ranges: <140 mg/dL before meals <180 mg/dL all other times of the day Specimen Anatomical Collection Method Collection Time Receive d Time (Source) Location / / Volume Laterality Blood specimen 07/09/2017 8:02 AM 017 8:02 (specimen) EST AM EST Yuan Webber MD POINT OF CARE TEST ORDERABLE S Performing Organization Address City/State/[place] [address] (ABNORMAL) BLOOD GAS 2 ARTERIAL (07/09/2017 5:37 AM EST) Analysis Performed At Patho logist Time Signature pH Art 7.36 7.35 - [facility] 7.45 [facility] LABORATORY pCO2 Art 38 35 - 45 [facility] LABORATORY pO2 Art 79 (L) 85 - 104 [facility] LABORATORY HCO3 Art 20.9 20.0 - [facility] 26.0 [facility] mmol/L [facility] LABORATORY BE Art -4.6 (L) -3.0 - 3.0 [facility] mmol/L [facility] Hgb Blood Gas 10.5 (L) 13.7 - [facility] 16.5 gm/dL [facility] LABOR[facility] O2HB Art 93.8 (L) 94.0 - [facility] 97.0 % [facility] COHB Art 0.3 % [place] [...] Whole Bld 175 65 - 199 mg/dL [facility] LABORATORY Comment: Diabetes: >=200 mg/dL plus symp toms. Lactate WB 1.0 0.5 - 2.2 mmol/L [facility] LABORATORY FIO2 Art 40 % [facility] LABOR[facility] PF Ratio Art 198 [facility] LABORATORY Specimen Anatomical Collection Method Collection Time Receive d Time (Source) Location / / Volume Laterality Blood specimen 07/09/2017 5:37 AM 017 5:37 (specimen) EST AM EST Yuan Webber MD CHEMISTRY ORDERABLES Performing Organization Address City/State/ZIP Code Phon e Number [address] POCT Glucose (07/09/2017 3:27 AM EST) athologist Signature POC Glucose 192 65 - 199 [facility] mg/dL [facility] Comment: Supplemental ranges: <140 mg/dL before meals <180 mg/dL all other times of the day Specimen Anatomical Collection Method Collection Time Receive d Time (Source) Location / / Volume Laterality Blood specimen 07/09/2017 3:27 AM 017 3:27 (specimen) EST AM EST Yuan Webber MD POINT OF CARE TEST ORDERABLE S Performing Organization Address City/[facility]/[place]IP [place] [address] (ABNORMAL) Basic Metabolic Panel (non-fasting) (07/09/2017 2:30 AM EST) P athologist Signature Glucose Lvl 179 65 - 199 [facility] mg/dL [facility] Comment: Diabetes: >=200 mg/dL plus symp toms BUN 17 10 - 20 mg/dL [facility] LAB[facility] Creatinine 1.34 0.80 - 1.50 mg/dL [facility] LABOR[facility]ORY Sodium 144 135 - 145 mmol/L [facility] Potassium Not Perf 3.5 - 5.0 mmol/L [facility] Comment: Duplicate order Please note: [...] Calcium 7.1 (L) 8.5 - 10.5 mg/dL [facility] Comment: result [id number]-[id number] Estimated GFR 53 (L) >=60 [facility] Comment: The reported eGFR should be multiplied b y 1.2 for patients. The MDRD is not an appropriate measure o f renal function for patients with body mass extremes or in patients with acute kidney failure. http://[employer]/DHnkdep http://[employer]/DHMCnkf Specimen Anatomical Collection Method Collection Time Receive d Time (Source) Location / / Volume Laterality Blood specimen Venous Draw / 07/09/2017 2:30 AM 2016 2:42 (specimen) Unknown EST AM EST Resulting Agency Comment Spec In Lab Yuan Webber MD CHEMISTRY ORDERABLES Performing Organization Address City/State/[place] [address] (ABNORMAL) Potassium (07/09/2017 2:30 AM EST) P athologist Signature Potassium 5.1 (H) 3.5 - 5.0 [facility] mmol/L [facility] Comment: Please note: ??Patients with WBC [...] Organization Address City/State/[place] [address] (ABNORMAL) Hemogram (07/09/2017 2:30 AM EST) Analysis Performed At Patho logist Time Signature WBC 12.5 (H) 4.0 - 9.5 [facility] LABORATORY RBC 3.38 (L) 4.58 - [facility] 5.54 [facility] x10(6)/[facility] LABORATORY Hemoglobin 10.1 (L) 13.7 - [facility] 16.5 gm/dL [facility]OR[facility]ORY Hematocrit 30.3 (L) 40.5 - [facility] 48.5 % [facility] LABORATORY MCV 89.6 82.9 [facility] 93.1 [facility] LABORATORY MCH 29.9 27.5 - [place] 32.1 pg [facility] LABORATORY MCHC 33.3 32.0 - [facility] 35.7 gm/dL [facility] LAB[facility] Platelets 127 (L) 145 - 357 [facility] LABORATORY RDWSD 49.3 (H) 36.0 - [place] RYAN 45.0 [facility] LABORATORY RDWCV 15.2 (H) 11.4 - [facility] RYAN 13.8 % [facility] LABORATORY MPV 9.9 7.6 - 12.9 [facility] LABORATORY nRBC % Auto 0.0 % [facility] LABORATORY nRBC Abs Auto 0.000 0.000 - [place] RYAN 0.000 [facility] x10(3)/[facility] LABORATORY Specimen Anatomical Collection Method Collection Time Receive d Time (Source) Location / / Volume Laterality Blood specimen 07/09/2017 2:30 AM 017 2:41 (specimen) EST AM EST Resulting Agency Comment Spec In Lab Yuan Webber MD HEMATOLOGY ORDERABLES Performing Organization Address City/[facility]/ZIP [place] [address] POCT Glucose (07/09/2017 2:10 AM EST) P athologist Signature POC Glucose 169 65 - 199 [place] RYAN mg/dL [facility] LABOR[facility]ORY Comment: Supplemental ranges: <140 mg/dL before meals <180 mg/dL all other times of the day Specimen Anatomical Collection Method Collection Time Receive d Time (Source) Location / / Volume Laterality Blood specimen 07/09/2017 2:10 AM 017 2:10 (specimen) EST AM EST Yuan Webber MD POINT OF CARE TEST ORDERABLE S Performing Organization Address City/[facility]/ZIP [place] [address] POCT Glucose (07/09/2017 1:01 AM EST) P athologist Signature POC Glucose 173 65 - 199 [place] ZHAORYAN mg/dL [facility] LAB[facility] Comment: Supplemental ranges: <140 mg/dL before meals <180 mg/dL all other times of the day Specimen Anatomical Collection Method Collection Time Receive d Time (Source) Location / / Volume Laterality Blood specimen 07/09/2017 1:01 AM 017 1:01 (specimen) EST AM EST Yuan Webber MD POINT OF CARE TEST ORDERABLE S Performing Organization Address City/[facility]/[place]IP [place] [address] Blood culture (07/09/2017 12:40 AM EST) Patholo gist Method Time Signature Blood Culture No growth [place] at 5 days. [facility] LABORATORY Specimen Anatomical Collection Method Collection Time Receive d Time (Source) Location / / Volume Laterality Blood specimen STRUCTURE OF RIGHT 07/09/2017 12:40 3:58 (specimen) UPPER LIMB / AM EST AM EST Unknown Resulting Agency Comment Spec In Lab Yuan Webber MD MICROBIOLOGY - BLOOD ORDERAB LES Performing Organization Address City/State/[place] [address] Blood culture (07/09/2017 12:30 AM EST) Patholo gist Method Time Signature Blood Culture No growth KATALINA DAVIS at 5 days. [facility] Specimen Anatomical Collection Method Collection Time Receive d Time (Source) Location / / Volume Laterality Blood specimen STRUCTURE OF LEFT 07/09/2017 12:30 1211/2016 3:59 (specimen) UPPER LIMB / AM EST AM EST Unknown Resulting Agency Comment Spec In Lab Yuan Webber MD MICROBIOLOGY - BLOOD ORDERAB LES Performing Organization Address City/[facility]/[place] [address] (ABNORMAL) Urinalysis Microscopic Exam [...] Organization Address City/State/[place] [address] (ABNORMAL) Urinalysis with reflex Culture (07/09/2017 12:05 AM EST) [facility] gist Method Time Signature Glucose UA Negative Negative [facility] mg/dL [facility] Protein UA 30 (A) Negative [facility] Bilirubin UA Negative Negative [facility] Comment: Clinical correlation required for positi ve Urine Bilirubin results as false positive may occur with some drugs and d rug related products. If a false positive is suspected a serum total bili yeager should be considered if clinically indicated. Urobilinogen UA Normal Normal mg/dL [facility] pH UA 5.0 5.0 - 8.0 [facility] Blood UA Moderate (A) Negative mg/dL [facility] Ketones UA Negative Negative mg/dL [facility] Nitrite UA Negative Negative [facility] Leukocytes UA Negative Negative [facility] LABORATORY Appearance UA Hazy (A) Clear [facility] Spec [place] UA 1.025 1.002 - 1.030 [facility] Color UA Yellow Yellow [facility] Culture Reflexed No [facility] Specimen (Source) Anatomical Collection Method Collection Time Re ceived Time Location / / Volume Laterality Urine specimen 07/09/2017 12:05 7 obtained via AM EST 12:39 AM EST indwelling urinary catheter (specimen) Resulting Agency Comment Spec In Lab Yuan Webber MD URINE ORDERABLES Performing Organization Address City/[facility]/[place] [address] POCT Glucose (07/08/2017 11:01 PM EST) P athologist Signature POC Glucose 191 65 - [address] [facility]dL [facility] Comment: Supplemental ranges: <140 mg/dL before meals <180 mg/dL all other times of the day Specimen Anatomical Collection Method Collection Time Receive d Time (Source) Location / / Volume Laterality Blood specimen 07/08/2017 11:01 7 (specimen) PM EST 11:01 PM EST Yuan Webber MD POINT OF CARE TEST ORDERABLE S Performing Organization Address City/State/ZIP [place] [address] POCT Glucose (07/08/2017 10:04 PM EST) athologist Signature POC Glucose 198 65 - 199 [facility] mg/dL [facility] Comment: Supplemental ranges: <140 mg/dL before meals <180 mg/dL all other times of the day Specimen Anatomical Collection Method Collection Time Receive d Time (Source) Location / / Volume Laterality Blood specimen 07/08/2017 10:04 7 (specimen) PM EST 10:04 PM EST Yuan Webber MD POINT OF CARE TEST ORDERABLE S Performing Organization Address City/State/[place] [address] Prepare Albumin 5% in [...] Organization Address City/State/[place] [address] POCT Glucose (07/08/2017 8:28 PM EST) athologist Signature POC Glucose 195 65 - 199 [facility] mg/dL [facility] Comment: Supplemental ranges: <140 mg/dL before meals <180 mg/dL all other times of the day Specimen Anatomical Collection Method Collection Time Receive d Time (Source) Location / / Volume Laterality Blood specimen 07/08/2017 8:28 PM 017 8:28 (specimen) EST PM EST Yuan Webber MD POINT OF CARE TEST ORDERABLE S Performing Organization Address City/State/[place] [address] (ABNORMAL) POCT Glucose (07/08/2017 7:13 PM EST) P athologist Signature POC Glucose 220 (H) 65 - [address] [facility]dL [facility] Comment: Supplemental ranges: <140 mg/dL before meals <180 mg/dL all other times of the day Specimen Anatomical Collection Method Collection Time Receive d Time (Source) Location / / Volume Laterality Blood specimen 07/08/2017 7:13 PM 017 7:13 (specimen) EST PM EST Yuan Webber MD POINT OF CARE TEST ORDERABLE S Performing Organization Address City/State/ZIP Code Phon e Number [address] POCT Glucose (07/08/2017 5:04 PM EST) athologist Signature POC Glucose 147 65 - [address] [facility]/dL [facility] Comment: Supplemental ranges: <140 mg/dL before meals <180 mg/dL all other times of the day Specimen Anatomical Collection Method Collection Time Receive d Time (Source) Location / / Volume Laterality Blood specimen 07/08/2017 5:04 PM 017 5:04 (specimen) EST PM EST Yuan Webber MD POINT OF CARE TEST ORDERABLE S Performing Organization Address City/State/[place] [address] (ABNORMAL) BLOOD GAS 2 ARTERIAL (07/08/2017 4:13 PM EST) Analysis Performed At Patho logist Time Signature pH Art 7.38 7.35 - [facility] 7.45 [facility] pCO2 Art 36 35 - 45 [facility] LABORATORY pO2 Art 91 85 - 104 [facility]ATORY HCO3 Art 20.9 20.0 - [facility] 26.0 [facility] mmol/L [facility] BE Art -4.2 (L) -3.0 - 3.0 [facility] mmol/L [facility] Hgb Blood Gas 11.7 (L) 13.7 - [facility] 16.5 gm/dL [facility] O2HB Art 95.1 94.0 - [facility] 97.0 % [facility] COHB Art 0.6 % [place] [...] Whole Bld 155 65 - 199 mg/dL [facility] Comment: Diabetes: >=200 mg/dL plus symp toms. Lactate WB 1.4 0.5 - 2.2 mmol/L [facility] FIO2 Art 40 % [facility] PF Ratio Art 228 [facility] Specimen Anatomical Collection Method Collection Time Receive d Time (Source) Location / / Volume Laterality Blood specimen 07/08/2017 4:13 PM 017 4:13 (specimen) EST PM EST Yuan Webber MD CHEMISTRY ORDERABLES Performing Organization Address City/State/[place] [address] POCT Glucose (07/08/2017 4:01 PM EST) P athologist Signature POC Glucose 148 65 - 199 [facility] mg/dL [facility] Comment: Supplemental ranges: <140 mg/dL before meals <180 mg/dL all other times of the day Specimen Anatomical Collection Method Collection Time Receive d Time (Source) Location / / Volume Laterality Blood specimen 07/08/2017 4:01 PM 12/14/2 017 4:01 (specimen) EST PM EST Yuan Webber MD POINT OF CARE TEST ORDERABLE S Performing Organization Address City/State/ZIP Code Phon e Number [address] POCT Glucose (07/08/2017 3:21 PM EST) athologist Signature POC Glucose 118 65 - 199 KATALINA ZHAORYAN mg/dL [facility] Comment: Supplemental ranges: <140 mg/dL before meals <180 mg/dL all other times of the day Specimen Anatomical Collection Method Collection Time Receive d Time (Source) Location / / Volume Laterality Blood specimen 07/08/2017 3:21 PM 017 3:21 (specimen) EST PM EST Yuan Webber MD POINT OF CARE TEST ORDERABLE S Performing Organization Address City/[facility]/ZIP Code Phon e Number [address] POCT Glucose (07/08/2017 2:01 PM EST) athologist Signature POC Glucose 129 65 - 199 KATALINA ZHAORYAN mg/dL [facility] Comment: Supplemental ranges: <140 mg/dL before meals <180 mg/dL all other times of the day Specimen Anatomical Collection Method Collection Time Receive d Time (Source) Location / / Volume Laterality Blood specimen 07/08/2017 2:01 PM 017 2:01 (specimen) EST PM EST Yuan Webber MD POINT OF CARE TEST ORDERABLE S Performing Organization Address City/State/[place] [address] POCT Glucose (07/08/2017 11:53 AM EST) athologist Signature POC Glucose 156 65 - 199 KATALINA RYAN mg/dL [facility] Comment: Supplemental ranges: <140 mg/dL before meals <180 mg/dL all other times of the day Specimen Anatomical Collection Method Collection Time Receive d Time (Source) Location / / Volume Laterality Blood specimen 07/08/2017 11:53 7 (specimen) AM EST 11:53 AM EST Yuan Webber MD POINT OF CARE TEST ORDERABLE S Performing Organization Address City/State/[place] [address] POCT Glucose (07/08/2017 11:04 AM EST) P athologist Signature POC Glucose 181 65 - [facility] Comment: Supplemental ranges: <140 mg/dL before meals <180 mg/dL all other times of the day Specimen Anatomical Collection Method Collection Time Receive d Time (Source) Location / / Volume Laterality Blood specimen 07/08/2017 11:04 7 (specimen) AM EST 11:04 AM EST Yuan Webber MD POINT OF CARE TEST ORDERABLE S Performing Organization Address City/[facility]/[place] [address] (ABNORMAL) POCT Glucose (07/08/2017 9:24 AM EST) athologist Signature POC Glucose 203 (H) 65 - 199 [facility] mg/dL [facility] Comment: Supplemental ranges: <140 mg/dL before meals <180 mg/dL all other times of the day Specimen Anatomical Collection Method Collection Time Receive d Time (Source) Location / / Volume Laterality Blood specimen 07/08/2017 9:24 AM 017 9:24 (specimen) EST AM EST Yuan Webber MD POINT OF CARE TEST ORDERABLE S Performing Organization Address City/[facility]/[place] [address] APTT (07/08/2017 8:40 AM [...] Organization Address City/State/[place] [address] (ABNORMAL) Prothrombin Time (07/08/2017 [...] Webber MD HEMATOLOGY ORDERABLES Performing Organization Address City/[facility]/[place] [address] (ABNORMAL) POCT Glucose (07/08/2017 7:38 AM EST) P athologist Signature POC Glucose 232 (H) 65 - 199 [facility] mg/dL [facility] Comment: Supplemental ranges: <140 mg/dL before meals <180 mg/dL all other times of the day Specimen Anatomical Collection Method Collection Time Receive d Time (Source) Location / / Volume Laterality Blood specimen 07/08/2017 7:38 AM 017 7:38 (specimen) EST AM EST Yuan Webber MD POINT OF CARE TEST ORDERABLE S Performing Organization Address City/[facility]/[place] [address] (ABNORMAL) POCT Glucose (07/08/2017 7:07 AM EST) athologist Signature POC Glucose 234 (H) 65 - 199 [facility] mg/dL [facility] Comment: Supplemental ranges: <140 mg/dL before meals <180 mg/dL all other times of the day Specimen Anatomical Collection Method Collection Time Receive d Time (Source) Location / / Volume Laterality Blood specimen 07/08/2017 7:07 AM 017 7:07 (specimen) EST AM EST Yuan Webber MD POINT OF CARE TEST ORDERABLE S Performing Organization Address City/State/[place] [address] (ABNORMAL) POCT Glucose (07/08/2017 6:04 AM EST) athologist Signature POC Glucose 225 (H) 65 - [facility] Comment: Supplemental ranges: <140 mg/dL before meals <180 mg/dL all other times of the day Specimen Anatomical Collection Method Collection Time Receive d Time (Source) Location / / Volume Laterality Blood specimen 07/08/2017 6:04 AM 017 6:04 (specimen) EST AM EST Yuan Webber MD POINT OF CARE TEST ORDERABLE S Performing Organization Address City/[facility]/[place] [address] (ABNORMAL) POCT Glucose (07/08/2017 5:31 AM EST) athologist Signature POC Glucose 216 (H) 65 - 199 [facility] mg/dL [facility] Comment: Supplemental ranges: <140 mg/dL before meals <180 mg/dL all other times of the day Specimen Anatomical Collection Method Collection Time Receive d Time (Source) Location / / Volume Laterality Blood specimen 07/08/2017 5:31 AM 017 5:31 (specimen) EST AM EST Yuan Webber MD POINT OF CARE TEST ORDERABLE S Performing Organization Address City/State/[place] [address] (ABNORMAL) POCT Glucose (07/08/2017 4:52 AM EST) P athologist Signature POC Glucose 257 (H) 65 - 199 [facility] mg/dL [facility] Comment: Supplemental ranges: <140 mg/dL before meals <180 mg/dL all other times of the day Specimen Anatomical Collection Method Collection Time Receive d Time (Source) Location / / Volume Laterality Blood specimen 07/08/2017 4:52 AM 017 4:52 (specimen) EST AM EST Daphne Shahid MD POINT OF CARE TEST ORDERABLE S Performing Organization Address City/State/[place] [address] (ABNORMAL) BLOOD GAS 2 ARTERIAL (07/08/2017 4:04 AM EST) Analysis Performed At Patho logist Time Signature pH Art 7.30 (L) 7.35 - [facility] 7.45 [facility] pCO2 Art 41 35 - 45 [facility] LABORATORY pO2 Art 83 (L) 85 - 104 [facility] LAB[facility]ATORY HCO3 Art 19.6 (L) 20.0 - [facility] 26.0 [facility] mmol/[facility] BE Art -6.8 (L) -3.0 - 3.0 [facility] mmol/L [facility] Hgb Blood Gas 12.2 (L) 13.7 - [facility] 16.5 gm/dL [facility] O2HB Art 93.5 (L) 94.0 - [facility] 97.0 % [facility] COHB Art 0.4 % [place] [...] Bld 274 (H) 65 - 199 mg/dL [facility] Comment: Diabetes: >=200 mg/dL plus symp toms. Lactate WB 4.4 (Critical) 0.5 - 2.2 mmol/L [facility] Comment: Noted by teacher instrumental. FIO2 Art 40 % [facility] PF Ratio Art 208 [facility] Specimen Anatomical Collection Method Collection Time Receive d Time (Source) Location / / Volume Laterality Blood specimen 07/08/2017 4:04 AM 017 4:04 (specimen) EST AM EST Daphne Shahdi MD CHEMISTRY ORDERABLES Performing Organization Address City/State/ZIP Code Phon e Number [address] Scan, Peripheral Blood (07/08/2017 [...] Address City/State/ZIP Code Phon e Number [address] (ABNORMAL) Differential, Automated (07/08/2017 4:00 AM EST) Patholo gist Method Time Signature Neutrophils % 85.4 % [facility] Neutr Abs (ANC) 16.07 (H) 1.70 - [facility] 6.10 [facility] x10(3)/[facility] L LABORATORY Lymphocytes % 3.5 % [facility] Lymphocytes Abs 0.6 (L) 0.9 - 3.2 [facility] x10(3)/[facility] LABORATORY Monocytes % 10.4 % [facility] Monocyte Abs 2.0 (H) 0.3 - 0.9 [facility] x10(3)/[facility] LABORATORY Eosinophils % 0.0 % [facility] Eosinophils Abs 0.0 0.0 - 0.4 [facility] x10(3)/[facility] LABORATORY Basophils % 0.1 % [facility] Basophils Abs 0.0 0.0 - 0.1 [facility] x10(3)/[facility] LABORATORY Immature Gran % 0.60 [...] Organization Address City/State/[place] [address] (ABNORMAL) Hemogram (07/08/2017 4:00 AM EST) Analysis Performed At Patho logist Time Signature WBC 18.8 (H) 4.0 - 9.5 [facility] x10(3)/[facility] LABORATORY RBC 4.00 (L) 4.58 - [facility] 5.54 [facility] x10(6)/[facility] LABORATORY Hemoglobin 11.9 (L) 13.7 - [facility] 16.5 gm/dL [facility] Hematocrit 35.9 (L) 40.5 - KATALINA DAVIS 48.5 % [facility] MCV 89.8 82.9 - [facility] 93.1 [facility] LABORATORY MCH 29.8 27.5 - KATALINA DAVIS 32.1 pg [facility] MCHC 33.1 32.0 - KATALINA ZHAORYAN 35.7 gm/dL [facility] Platelets 232 145 - 357 [facility] x10(3)/[facility] LABORATORY RDWSD 47.6 (H) 36.0 - KATALINA ZHAORYAN 45.0 [facility] LABORATORY RDWCV 14.5 (H) 11.4 - [facility] 13.8 % [facility]ATORY MPV 9.5 7.6 - 12.9 [facility] LABORATORY nRBC % Auto 0.0 % [facility] nRBC Abs Auto 0.000 0.000 - [facility] 0.000 [facility] x10(3)/[facility] LABORATORY Specimen Anatomical Collection Method Collection Time Receive d Time (Source) Location / / Volume Laterality Blood specimen 07/08/2017 4:00 AM 017 4:09 (specimen) EST AM EST Resulting Agency Comment Spec In Lab Yuan Webber MD HEMATOLOGY ORDERABLES Performing Organization Address City/State/ZIP Code Phon e Number [place] [id number] (ABNORMAL) Electrolytes panel (07/08/2017 4:00 AM EST) P athologist Signature Sodium 139 135 - 145 [facility] mmol/L [facility] Potassium 4.7 3.5 - 5.0 [facility] mmol/L [facility] Comment: result rechecked-JLK Please note: ??Patients with WBC >100,00 0 may have falsely elevated Potassium levels. ??For accurate Potassium quantif ication in these patients send serum separator tube (gold top) for subsequent determinations. ??Contact the Clinical Chemistry Laboratory if there are any qu estions. Chloride 104 98 - 107 mmol/L [facility] CO2 21 (L) 22 - 31 mmol/L [facility] Anion Gap 14 5 - 15 mmol/L [facility] LABORATORY Specimen Anatomical Collection Method Collection Time Receive d Time (Source) Location / / Volume Laterality Blood specimen 07/08/2017 4:00 AM 017 4:10 (specimen) EST AM EST Resulting Agency Comment Spec In Lab Yuan Webber MD CHEMISTRY ORDERABLES Performing Organization Address City/State/[place] [address] (ABNORMAL) Cardiac Enzymes (LEB/CGP) (07/08/2017 4:00 AM EST) P athologist Signature Troponin-T 1.88 (H) 0.00 - [facility] 0.00 ng/mL [facility] Comment: The 99th percentile for Troponin [...] additional sample may be indicated. Reference: Third Coolin Definition of Myocardial Infarction. Journal of the [place] [employer] 2012;60:1581-98 CK, Total 413 (H) 0 - 200 unit/L [facility] Comment: result rechecked-JLK Specimen Anatomical Collection Method Collection Time Receive d Time (Source) Location / / Volume Laterality Blood specimen 07/08/2017 4:00 AM 017 4:09 (specimen) EST AM EST Resulting Agency Comment Spec In Lab Yuan Webber MD CHEMISTRY ORDERABLES Performing Organization Address City/[facility]/ZIP Code Phon e Number [address] (ABNORMAL) Glucose, fasting (07/08/2017 4:00 AM EST) P athologist Signature Glucose 287 (H) 65 - 99 [facility] Fasting mg/dL [facility] Comment: ?Fasting* Glucose Interpretive C riteria [...] Webber MD CHEMISTRY ORDERABLES Performing Organization Address City/[facility]/[place] [address] (ABNORMAL) Creatinine (07/08/2017 4:00 AM EST) Analysis Performed At Patho logist Time Signature Creatinine 1.55 (H) 0.80 - K[place]ALINA ZHAORYAN 1.50 mg/dL [facility] Estimated GFR 44 (L) >=60 [facility] Comment: The reported eGFR should be multiplied b y 1.2 for patients. The MDRD is not an appropriate measure o f renal function for patients with body mass extremes or in patients with acute kidney failure. [email or web address].TrademarkFly/nkdep http://[employer]/DHMCnkf Specimen Anatomical Collection Method Collection Time Receive d Time (Source) Location / / Volume Laterality Blood specimen 07/08/2017 4:00 AM 017 4:09 (specimen) EST AM EST Resulting Agency Comment Spec In Lab Yuan Webber MD CHEMISTRY ORDERABLES Performing Organization Address City/[facility]/Z[place] [address] BUN (07/08/2017 4:00 AM EST) athologist Signature BUN 16 10 - 20 [facility] mg/dL [facility] Specimen Anatomical Collection Method Collection Time Receive d Time (Source) Location / / Volume Laterality Blood specimen 07/08/2017 4:00 AM 017 4:09 (specimen) EST AM EST Resulting Agency Comment Spec In Lab Yuan Webber MD CHEMISTRY ORDERABLES Performing Organization Address City/[facility]/[place]IP [place] [address] (ABNORMAL) POCT Glucose (07/08/2017 3:00 AM EST) athologist Signature POC Glucose 273 (H) 65 - 199 [facility] mg/dL [facility] Comment: Supplemental ranges: <140 mg/dL before meals <180 mg/dL all other times of the day Specimen Anatomical Collection Method Collection Time Receive d Time (Source) Location / / Volume Laterality Blood specimen 07/08/2017 3:00 AM 017 3:00 (specimen) EST AM EST Daphne Shahid MD POINT OF CARE TEST ORDERABLE S Performing Organization Address City/[facility]/ZIP Code Phon e Number [address] (ABNORMAL) POCT Glucose (07/08/2017 1:57 AM EST) P athologist Signature POC Glucose 288 (H) 65 - 199 [facility] mg/dL [facility] Comment: Supplemental ranges: <140 mg/dL before meals <180 mg/dL all other times of the day Specimen Anatomical Collection Method Collection Time Receive d Time (Source) Location / / Volume Laterality Blood specimen 07/08/2017 1:57 AM 017 1:57 (specimen) EST AM EST Daphne Shahid MD POINT OF CARE TEST ORDERABLE S Performing Organization Address City/State/[place] [address] (ABNORMAL) POCT Glucose (07/08/2017 1:01 AM EST) P athologist Signature POC Glucose 315 (H) 65 - 199 [facility] mg/dL [facility] Comment: Supplemental ranges: <140 mg/dL before meals <180 mg/dL all other times of the day Specimen Anatomical Collection Method Collection Time Receive d Time (Source) Location / / Volume Laterality Blood specimen 07/08/2017 1:01 AM 017 1:01 (specimen) EST AM EST Daphne Shahid MD POINT OF CARE TEST ORDERABLE S Performing Organization Address City/[facility] Hospital/[place] [address] (ABNORMAL) BLOOD GAS 2 ARTERIAL (07/08/2017 12:09 AM EST) P athologist Signature pH Art 7.26 7.35 - [facility] (Critical) 7.45 [facility] Comment: Noted by teacher instrumental. pCO2 Art 41 35 - 45 mmHg [facility]ORY pO2 Art 96 85 - 104 mmHg [facility] HCO3 Art 17.7 (L) 20.0 - 26.0 mmol/L [facility] BE Art -9.4 (L) -3.0 - 3.0 mmol/L [facility] Hgb Blood Gas 12.4 (L) 13.7 - 16.5 gm/dL [facility] O2HB Art 94.7 94.0 - 97.0 % [facility] COHB Art 0.2 % [facility] Bld 315 (H) 65 - 199 mg/dL [facility] Comment: Diabetes: >=200 mg/dL plus symp toms. Lactate WB 7.6 (Critical) 0.5 - 2.2 mmol/L [facility] Comment: Noted by teacher instrumental. FIO2 Art 40 % [facility] PF Ratio Art 240 [facility] Specimen Anatomical Collection Method Collection Time Receive d Time (Source) Location / / Volume Laterality Blood specimen Arterial Draw / 07/08/2017 12:09 2016 5:31 (specimen) Unknown AM EST AM EST Resulting Agency Comment Spec In Lab Samy Maldonado MD CHEMISTRY ORDERABLES Performing Organization Address City/State/[place] [address] (ABNORMAL) POCT Glucose (07/07/2017 10:56 PM EST) P athologist Signature POC Glucose 292 (H) 65 - 199 [facility] mg/dL [facility] Comment: Supplemental ranges: <140 mg/dL before meals <180 mg/dL all other times of the day Specimen Anatomical Collection Method Collection Time Receive d Time (Source) Location / / Volume Laterality Blood specimen 07/07/2017 10:56 7 (specimen) PM EST 10:56 PM EST Daphne Shahid MD POINT OF CARE TEST ORDERABLE S Performing Organization Address City/State/[place] [address] (ABNORMAL) BLOOD GAS 2 ARTERIAL (07/07/2017 10:04 PM EST) athologist Signature pH Art 7.22 7.35 - [facility] (Critical) 7.45 [facility] Comment: Noted by teacher instrumental. pCO2 Art 42 35 - 45 mmHg [facility] pO2 Art 94 85 - 104 mmHg [facility] HCO3 Art 16.9 (L) 20.0 - 26.0 mmol/L [facility] BE Art -10.7 (L) -3.0 - 3.0 mmol/L [facility] Hgb Blood Gas 13.0 (L) 13.7 - 16.5 gm/dL [facility] O2HB Art 93.8 (L) 94.0 - 97.0 % [facility] COHB Art 0.7 % [facility] Comment: Nonsmokers: 0.5-1.5% COHB Smokers: Variable, but usually less than 10% Toxic: 20-30% COHB Lethal: Greater than 60% COHB METHB Art 0.7 <=1.5 % [facility] Na Whole Blood 140 135 - 145 mmol/L [facility] K Whole Blood 3.3 (L) [...] Bld 304 (H) 65 - 199 mg/dL [facility] Comment: Diabetes: >=200 mg/dL plus symp toms. Lactate WB 8.2 (Critical) 0.5 - 2.2 mmol/L [facility] Comment: Noted by teacher instrumental. FIO2 Art 40 % [facility] PF Ratio Art 235 [facility] Specimen Anatomical Collection Method Collection Time Receive d Time (Source) Location / / Volume Laterality Blood specimen 07/07/2017 10:04 7 (specimen) PM EST 10:04 PM EST Daphne Shahid MD CHEMISTRY ORDERABLES Performing Organization Address City/[facility]/ZIP Code Phon e Number [address] (ABNORMAL) Hemoglobin (07/07/2017 10:00 PM EST) P athologist Signature Hemoglobin 12.8 (L) 13.7 - [facility] 16.5 gm/dL [facility] Specimen Anatomical Collection Method Collection Time Receive d Time (Source) Location / / Volume Laterality Blood specimen 07/07/2017 10:00 7 (specimen) PM EST 10:13 PM EST Resulting Agency Comment Spec In Lab Yuan Webber MD HEMATOLOGY ORDERABLES Performing Organization Address City/[facility]/[place] [address] (ABNORMAL) Potassium (07/07/2017 10:00 PM EST) P athologist Signature Potassium 3.4 (L) 3.5 - 5.0 [facility] mmol/L [facility] Comment: Please note: ??Patients with WBC [...] Organization Address City/State/[place] [address] (ABNORMAL) POCT Glucose (07/07/2017 8:49 PM EST) P athologist Signature POC Glucose 241 (H) 65 - 199 [facility] mg/dL [facility] Comment: Supplemental ranges: <140 mg/dL before meals <180 mg/dL all other times of the day Specimen Anatomical Collection Method Collection Time Receive d Time (Source) Location / / Volume Laterality Blood specimen 07/07/2017 8:49 PM 017 8:49 (specimen) EST PM EST Daphne Shahid MD POINT OF CARE TEST ORDERABLE S Performing Organization Address City/[facility]/[place] [address] Prepare Albumin 5% in [...] Organization Address City/State/[place] [address] EKG 12 Lead (07/07/2017 7:17 PM EST) Component Value Ref Range Test Analysis Performed Pathologis t Method Time At Signature Ventricular rate 75 BPM MUSE SYSTEM Atrial Rate 75 BPM MUSE SYSTEM P-R Interval 168 ms MUSE SYSTEM QRS Duration 104 ms MUSE SYSTEM Q-T Interval 462 ms MUSE SYSTEM QTC Calculated 515 ms MUSE SYSTEM (Bezet) Calculated P [place] 52 degrees MUSE SYSTEM Calculated R [place] -40 degrees MUSE SYSTEM Calculated T [place] 39 degrees MUSE SYSTEM INTERPRETATION Normal sinus [...] pH Art 7.21 7.35 - [facility] (Critical) 7.45 [facility] Comment: Noted by teacher instrumental. pCO2 Art 50 (H) 35 - 45 mmHg [facility] pO2 Art 238 (H) 85 - 104 mmHg [facility] HCO3 Art 19.8 (L) 20.0 - 26.0 mmol/L [facility] BE Art -8.1 (L) -3.0 - 3.0 mmol/L [facility] Hgb Blood Gas 12.8 (L) 13.7 - 16.5 gm/dL [facility] O2HB Art 97.5 (H) 94.0 - 97.0 % [facility] COHB Art 0.5 % [facility] Comment: Nonsmokers: 0.5-1.5% COHB Smokers: Variable, but usually less than 10% Toxic: 20-30% COHB Lethal: Greater than 60% COHB METHB Art 0.7 <=1.5 % [facility] Na Whole Blood 140 135 - 145 mmol/L [facility] K Whole Blood 3.0 (Critical) 3.5 - 5.0 mmol/L [facility] Comment: Noted by teacher instrumental. Please note: Patients with WBC >100,000 may [...] Bld 270 (H) 65 - 199 mg/dL [facility] Comment: Diabetes: >=200 mg/dL plus symp toms. Lactate WB 4.9 (Critical) 0.5 - 2.2 mmol/L [facility] Comment: Noted by teacher instrumental. FIO2 Art 100 % [facility] PF Ratio Art 238 [facility] Specimen Anatomical Collection Method Collection Time Receive d Time (Source) Location / / Volume Laterality Blood specimen 07/07/2017 6:57 PM 017 6:57 (specimen) EST PM EST Daphne Shahid MD CHEMISTRY ORDERABLES Performing Organization Address City/State/[place] [address] (ABNORMAL) BLOOD GAS 2 ARTERIAL (07/07/2017 5:31 PM EST) athologist Signature pH Art 7.29 7.35 - [facility] (Critical) 7.45 [facility] Comment: Noted by teacher instrumental. pCO2 Art 48 (H) 35 - 45 mmHg [facility] pO2 Art 137 (H) 85 - 104 mmHg [facility] HCO3 Art 22.4 20.0 - 26.0 mmol/L [facility] BE Art -4.3 (L) -3.0 - 3.0 mmol/L [facility] Hgb Blood Gas 10.0 (L) 13.7 - 16.5 gm/dL [facility] O2HB Art 97.3 (H) 94.0 - 97.0 % [facility] COHB Art 0.3 % [facility] Comment: Nonsmokers: 0.5-1.5% COHB Smokers: Variable, but usually less than 10% Toxic: 20-30% COHB Lethal: Greater than 60% COHB METHB Art 0.3 <=1.5 % [facility] Na Whole Blood 132 (L) 135 - 145 mmol/L [facility] [...] Bld 293 (H) 65 - 199 mg/dL [facility] Comment: Diabetes: >=200 mg/dL plus symp toms. Lactate WB 3.1 (H) 0.5 - 2.2 mmol/L [facility] Specimen Anatomical Collection Method Collection Time Receive d Time (Source) Location / / Volume Laterality Blood specimen 07/07/2017 5:31 PM 017 5:31 (specimen) EST PM EST Daphne Shahid MD CHEMISTRY ORDERABLES Performing Organization Address City/[facility]/ZIP Code Phon e Number [address] Fibrinogen (07/07/2017 5:30 PM EST) P athologist Signature Fibrinogen 224 180 - 510 [facility] mg/dL [facility] Comment: Called by: JEET, Read back [...] Perez MD HEMATOLOGY ORDERABLES Performing Organization Address City/[facility]/ZIP [facility] [place] [address] APTT (07/07/2017 5:30 PM [...] Perez MD HEMATOLOGY ORDERABLES Performing Organization Address City/[facility]/ZIP Code Phon e Number [address] (ABNORMAL) Prothrombin Time (07/07/2017 [...] Perez MD HEMATOLOGY ORDERABLES Performing Organization Address City/[facility] [place] [address] (ABNORMAL) Hemogram (07/07/2017 5:30 PM EST) P athologist Signature WBC 19.6 (H) 4.0 - 9.5 [facility] x10(3)/[facility] LABORATORY RBC 3.08 (L) 4.58 - [facility] 5.54 [facility] x10(6)/[facility] LABORATORY Hemoglobin 9.2 (L) 13.7 - [facility] 16.5 gm/dL [facility] LABOR[facility]ORY Hematocrit 28.0 (L) 40.5 - [facility] 48.5 % [facility] Comment: This result has been called to MONICA MORAN by DONALD GROSSMAN on 07 07 2017 at 1759, and has been read back. MCV 90.9 82.9 - 93.1 [facility] LABORATORY MCH 29.9 27.5 - 32.1 pg [facility] LABORATORY MCHC 32.9 32.0 - 35.7 gm/dL [facility]ORY Platelets 155 145 - 357 x10(3)/[facility] LABORATORY RDWSD 46.5 (H) 36.0 - 45.0 [facility] LABORATORY RDWCV 14.1 (H) 11.4 - 13.8 % [facility] LABORATORY MPV 9.5 7.6 - 12.9 [facility] LABORATORY nRBC % Auto 0.0 % [facility] LABORATORY nRBC Abs Auto 0.000 0.000 - 0.000 x10(3)/[facility] LABORATORY Specimen Anatomical Collection Method Collection Time Receive d Time (Source) Location / / Volume Laterality Blood specimen 07/07/2017 5:30 PM 017 5:34 (specimen) EST PM EST Resulting Agency Comment Spec In Lab Yifan Perez MD HEMATOLOGY ORDERABLES Performing Organization Address City/State/[place] [address] Prepare Platelets, Apheresis (07/07/2017 5:00 PM EST) P athologist Signature Dispensed? Yes [facility] LABORATORY Specimen Anatomical Collection Method Collection Time Receive d Time (Source) Location / / Volume Laterality Blood specimen 07/07/2017 5:00 PM 017 4:58 (specimen) EST PM EST Daphne Shahid MD BLOOD BANK ORDERABLES Performing Organization Address City/State/[place] [address] Platelet count (07/07/2017 4:55 PM EST) athologist Signature Platelets 177 145 - 357 [facility] x10(3)/[facility] LABORATORY Plat Immature 1.5 0.0 - 7.4 [facility] % % [facility] LABORATORY Comment: Limitation of the Immature Platelet Frac tion (IPF)-May be less reliable when the platelet count is less than 10o335/u L due to statistical imprecision. The IPF [...] in a decreased state of production. References: [employer] The Clinical Value of the Immature Platelet Fraction (IPF) in Cell Recovery Document Number 10-1143 12/2010 [employer] The Role of the Imm ature [...] Organization Address City/State/[place] [address] [facility] LAB[address] Drive (ABNORMAL) Hemoglobin and Hematocrit, blood (07/07/2017 4:55 PM EST) athologist Signature Hemoglobin 9.1 (L) 13.7 - 16.5 [facility] gm/dL [facility] Comment: This result has been called [...] Organization Address City/State/[place] [address] (ABNORMAL) BLOOD GAS 2 ARTERIAL (07/07/2017 4:38 PM EST) Analysis Performed At Patho logist Time Signature pH Art 7.37 7.35 - [facility] 7.45 [facility]ORATORY pCO2 Art 44 35 - 45 [facility] mmHg [facility] LABORATORY pO2 Art 322 (H) 85 - 104 [facility] LABORATORY HCO3 Art 24.9 20.0 - [facility] 26.0 [facility] mmol/[facility] LABORATORY BE Art -0.4 -3.0 - 3.0 [facility] mmol/L [facility]ORATORY Hgb Blood Gas 10.1 (L) 13.7 - [facility] 16.5 gm/dL [facility] O2HB Art 98.7 (H) 94.0 - [facility] 97.0 % [facility] LABORATORY COHB Art 0.1 % [facility] LABORATORY Comment: Nonsmokers: 0.5-1.5% COHB Smokers: Variable, but usually less than 10% Toxic: 20-30% COHB Lethal: Greater than 60% COHB METHB Art 0.3 <=1.5 % [facility] LABORATORY Na Whole Blood 130 (L) 135 - 145 mmol/L [facility] K Whole Blood 5.7 (H) 3.5 - 5.0 mmol/L [facility] Comment: Please note: Patients with WBC >100,000 may have falsely elevated Potassium levels. Contact the Clinical Chemistry L aboratory if there are any questions. ICa Whole Blood 0.89 (Critical) 1.15 - 1.33 mmol/L [facility] Comment: Noted by teacher instrumental. Note: ??Total bilirubin higher than 20 m g/dL may lead to falsely low ionized calcium. CL Whole Blood 101 98 - 107 mmol/L [facility]ORY Gluc Whole Bld 295 (H) 65 - 199 mg/dL [facility] [...] Organization Address City/State/[place] [address] (ABNORMAL) BLOOD GAS 2 VENOUS (07/07/2017 4:06 PM EST) Analysis Performed At Patho logist Time Signature pH Cody 7.31 (L) 7.32 - [facility] 7.42 [facility] LABORATORY pCO2 Cody 47 41 - 51 [facility] LABORATORY pO2 Cody 53 (H) 25 - 40 [facility] LABORATORY HCO3 Cody 22.7 mmol/L [facility] LABORAT[facility] BE Cody -3.7 mmol/L [facility] Hgb Blood Gas 10.2 (L) 13.7 - [facility] 16.5 gm/dL [facility]ORATORY O2HB Cody 81.0 % [facility] COHB Cody 1.0 % [facility] Comment: Nonsmokers: 0.5-1.5% COHB Smokers: Variable, but usually less than 10% Toxic: 20-30% COHB Lethal: Greater than 60% COHB METHB Cody 0.3 <=1.5 % [facility] Na Whole Blood 132 (L) 135 - 145 mmol/L [facility] K Whole Blood 5.3 (H) 3.5 - 5.0 mmol/L [facility] Comment: Please note: Patients with WBC >100,000 may have falsely elevated Potassium levels. Contact the Clinical Chemistry L aboratory if there are any questions. ICa Whole Blood 0.90 (Critical) 1.15 - 1.33 mmol/L [facility] Comment: Noted by teacher instrumental. Note: ??Total bilirubin higher than 20 m g/dL may lead to falsely low ionized calcium. CL Whole Blood 100 98 - 107 mmol/L [facility] Gluc Whole Bld 231 (H) 65 - 199 mg/dL [facility] Comment: Diabetes: >=200 mg/dL plus symp toms Lactate WB 1.1 0.5 - 2.2 mmol/L [facility] BGas Source Venous [facility]ORY Specimen Anatomical Collection Method Collection Time Receive d Time (Source) Location / / Volume Laterality Blood specimen 07/07/2017 4:06 PM 017 4:06 (specimen) EST PM EST Daphne Shahid MD CHEMISTRY ORDERABLES Performing Organization Address City/State/[place] [address] (ABNORMAL) BLOOD GAS 2 ARTERIAL (07/07/2017 4:05 PM EST) Analysis Performed At Patho logist Time Signature pH Art 7.36 7.35 - [facility] 7.45 [facility] LABORATORY pCO2 Art 40 35 - 45 [facility] mmHg [facility] LABORATORY pO2 Art 282 (H) 85 - 104 [facility] LABORATORY HCO3 Art 22.1 20.0 - [facility] 26.0 [facility] mmol/L [facility] LABORATORY BE Art -3.4 (L) -3.0 - 3.0 [facility] mmol/L [facility] LABORATORY Hgb Blood Gas 10.2 (L) 13.7 - [facility] 16.5 gm/dL [facility] LABORATORY O2HB Art 98.4 (H) 94.0 - [facility] 97.0 % [facility] LABORATORY COHB Art 0.3 % [facility]ORY Comment: Nonsmokers: 0.5-1.5% COHB Smokers: Variable, but usually less than 10% Toxic: 20-30% COHB Lethal: Greater than 60% COHB METHB Art 0.3 <=1.5 % [facility] Na Whole Blood 131 (L) 135 - 145 mmol/L [facility] K Whole Blood 5.4 (H) 3.5 - 5.0 mmol/L [facility] Comment: Please note: Patients with WBC >100,000 may have falsely elevated Potassium levels. Contact the Clinical Chemistry L aboratory if there are any questions. ICa Whole Blood 0.86 (Critical) 1.15 - 1.33 mmol/L [facility] Comment: Noted by teacher instrumental. Note: ??Total bilirubin higher than 20 m g/dL may lead to falsely low ionized calcium. CL Whole Blood 101 98 - 107 mmol/L [facility] Gluc Whole Bld 260 (H) 65 - 199 mg/dL [facility] [...] Organization Address City/State/[place] [address] (ABNORMAL) BLOOD GAS 2 ARTERIAL (07/07/2017 2:29 PM EST) Analysis Performed At Patho logist Time Signature pH Art 7.43 7.35 - [facility] 7.45 [facility] LABORATORY pCO2 Art 36 35 - 45 [facility] LABORATORY pO2 Art 221 (H) 85 - 104 [facility] LABORATORY HCO3 Art 23.2 20.0 - [facility] 26.0 [facility] mmol/L [facility] LABORATORY BE Art -1.2 -3.0 - 3.0 [facility] mmol/L [facility] LABORATORY Hgb Blood Gas 13.9 13.7 - [facility] 16.5 gm/dL [facility] LABORATORY O2HB Art 97.8 (H) 94.0 - [facility] 97.0 % [facility] LABORATORY COHB Art 1.1 % [place] [...] Whole Bld 184 65 - 199 mg/dL [facility] LABORATORY [...] Organization Address City/State/[place] [address] Prepare Coag Factors (Non-Hemophilia) (07/07/2017 1:25 PM EST) P athologist Signature Dispensed? Yes [facility] LABORATORY Specimen Anatomical Collection Method Collection Time Receive d Time (Source) Location / / Volume Laterality Blood specimen 07/07/2017 1:25 PM 017 1:21 (specimen) EST PM EST Daphne Shahid MD BLOOD BANK ORDERABLES Performing Organization Address City/State/ZIP Code Phon e Number [address] Prepare RBC (07/07/2017 1:10 PM EST) P athologist Signature Dispensed? Yes [facility]OR[facility]ORY Specimen Anatomical Collection Method Collection Time Receive d Time (Source) Location / / Volume Laterality Blood specimen 07/07/2017 1:10 PM 017 1:05 (specimen) EST PM EST Daphne Shahid MD BLOOD BANK ORDERABLES Performing Organization Address City/[facility]/ZIP Code Phon e Number [address] POCT Glucose (07/07/2017 11:56 AM EST) P athologist Signature POC Glucose 188 65 - 199 [facility] mg/dL [facility] Comment: Supplemental ranges: <140 mg/dL before meals <180 mg/dL all other times of the day Specimen Anatomical Collection Method Collection Time Receive d Time (Source) Location / / Volume Laterality Blood specimen 07/07/2017 11:56 7 (specimen) AM EST 11:56 AM EST Daphne Shahid MD POINT OF CARE TEST ORDERABLE S Performing Organization Address City/[facility]/ZIP [place] [address] POCT Glucose (07/07/2017 11:05 AM EST) P athologist Signature POC Glucose 168 65 - 199 [facility] mg/dL [facility] LABORATORY Comment: Supplemental ranges: <140 mg/dL before meals <180 mg/dL all other times of the day Specimen Anatomical Collection Method Collection Time Receive d Time (Source) Location / / Volume Laterality Blood specimen 07/07/2017 11:05 7 (specimen) AM EST 11:05 AM EST Daphne Shahid MD POINT OF CARE TEST ORDERABLE S Performing Organization Address City/State/[place] [address] POCT Glucose (07/07/2017 10:02 AM EST) athologist Signature POC Glucose 191 65 - 199 [facility] mg/dL [facility] LABORATORY Comment: Supplemental ranges: <140 mg/dL before meals <180 mg/dL all other times of the day Specimen Anatomical Collection Method Collection Time Receive d Time (Source) Location / / Volume Laterality Blood specimen 07/07/2017 10:02 7 (specimen) AM EST 10:02 AM EST Daphne Shahid MD POINT OF CARE TEST ORDERABLE S Performing Organization Address City/State/ZIP Code Phon e Number [address] POCT Glucose (07/07/2017 7:53 AM EST) athologist Signature POC Glucose 178 65 - 199 [facility] mg/dL [facility] LABORATORY Comment: Supplemental ranges: <140 mg/dL before meals <180 mg/dL all other times of the day Specimen Anatomical Collection Method Collection Time Receive d Time (Source) Location / / Volume Laterality Blood specimen 07/07/2017 7:53 AM 017 7:53 (specimen) EST AM EST Daphne Shahid MD POINT OF CARE TEST ORDERABLE S Performing Organization Address City/State/[place] [address] POCT Glucose (07/07/2017 7:03 AM EST) athologist Signature POC Glucose 188 65 - 199 [facility] mg/dL [facility] LABORATORY Comment: Supplemental ranges: <140 mg/dL before meals <180 mg/dL all other times of the day Specimen Anatomical Collection Method Collection Time Receive d Time (Source) Location / / Volume Laterality Blood specimen 07/07/2017 7:03 AM 017 7:03 (specimen) EST AM EST Daphne Shahid MD POINT OF CARE TEST ORDERABLE S Performing Organization Address City/State/ZIP [place] [address] (ABNORMAL) POCT Glucose (07/07/2017 6:17 AM EST) athologist Signature POC Glucose 207 (H) 65 - 199 [facility] mg/dL [facility] LABOR[facility]ORY Comment: Supplemental ranges: <140 mg/dL before meals <180 mg/dL all other times of the day Specimen Anatomical Collection Method Collection Time Receive d Time (Source) Location / / Volume Laterality Blood specimen 07/07/2017 6:17 AM 017 6:17 (specimen) EST AM EST Daphne Shahid MD POINT OF CARE TEST ORDERABLE S Performing Organization Address City/State/ZIP Code Phon e Number [place] [id number] Differential, Automated (07/07/2017 5:15 AM EST) athologist [facility] Neutrophils % 69.7 % [facility] LABORATORY Neutr Abs (ANC) 5.32 1.70 - [facility] 6.10 [facility] x10(3)/[facility] LABORATORY Lymphocytes % 16.3 % [facility] LABORATORY Lymphocytes Abs 1.2 0.9 - 3.2 [facility] x10(3)/[facility] LABORATORY Monocytes % 10.5 % [facility] LABORATORY Monocyte Abs 0.8 0.3 - 0.9 [facility] x10(3)/[facility] LABORATORY Eosinophils % 2.5 % [facility] LABORATORY Eosinophils Abs 0.2 0.0 - 0.4 [facility] x10(3)/[facility] LABORATORY Basophils % 0.7 % [facility] LABORATORY Basophils Abs 0.0 0.0 - 0.1 [facility] x10(3)/[facility] LABORATORY Immature Gran % 0.30 % [facility] [...] Gran Abs 0.02 0.00 - 0.04 x10(3)/[facility] LABORATORY Specimen Anatomical Collection Method Collection Time Receive d Time (Source) Location / / Volume Laterality Blood specimen 07/07/2017 5:15 AM 017 5:34 (specimen) EST AM EST Resulting Agency Comment Spec In Lab Daphne Shahid MD HEMATOLOGY ORDERABLES Performing Organization Address City/State/[place] [address] (ABNORMAL) Hemogram (07/07/2017 5:15 AM EST) Analysis Performed At Patho logist Time Signature WBC 7.6 4.0 - 9.5 [facility] x10(3)/[facility] LABORATORY RBC 4.82 4.58 [facility] x10(6)/[facility] LABORATORY Hemoglobin 14.4 13.7 - [facility] 16.5 gm/dL [facility] LABORATORY Hematocrit 42.1 40.5 - [facility] 48.5 % [facility] LABORATORY MCV 87.3 82.9 [facility] 93.1 [facility] LABORATORY MCH 29.9 27.5 [facility] 32.1 pg [facility] LABORATORY MCHC 34.2 32.0 - [facility] 35.7 gm/dL [facility] LABORATORY Platelets 188 145 - 357 [facility] x10(3)/[facility] LABORATORY RDWSD 45.1 (H) 36.0 - [facility] 45.0 [facility] LABORATORY RDWCV 14.3 (H) 11.4 - [facility] RYAN 13.8 % [facility] LABORATORY MPV 9.4 7.6 - 12.9 [facility] LABORATORY nRBC % Auto 0.0 % [facility] LABORATORY nRBC Abs Auto 0.000 0.000 - [facility] 0.000 [facility] x10(3)/[facility] LABORATORY Specimen Anatomical Collection Method Collection Time Receive d Time (Source) Location / / Volume Laterality Blood specimen 07/07/2017 5:15 AM 017 5:34 (specimen) EST AM EST Resulting Agency Comment Spec In Lab Daphne Shahid MD HEMATOLOGY ORDERABLES Performing Organization Address City/State/[place] [address] (ABNORMAL) APTT (07/07/2017 5:15 [...] Shahid MD HEMATOLOGY ORDERABLES Performing Organization Address City/[facility]/ZIP [place] [address] Magnesium (07/07/2017 5:15 AM EST) athologist Signature Magnesium 0.94 0.69 - 1.07 [facility] mmol/L [facility] LABORATORY Specimen Anatomical Collection Method Collection Time Receive d Time (Source) Location / / Volume Laterality Blood specimen 07/07/2017 5:15 AM 017 5:34 (specimen) EST AM EST Resulting Agency Comment Spec In Lab Daphne Shahid MD CHEMISTRY ORDERABLES Performing Organization Address City/[facility]/[place]IP [place] [address] (ABNORMAL) Basic Metabolic Panel (non-fasting) (07/07/2017 5:15 AM EST) athologist Signature Glucose Lvl 203 (H) 65 - 199 [facility] mg/dL [facility] LABORATORY Comment: Diabetes: >=200 mg/dL plus symp toms BUN 15 10 - 20 mg/dL [facility] LABORATORY Creatinine 1.09 0.80 - 1.50 mg/dL [facility] LABORATORY Sodium 142 135 - 145 mmol/L [facility] LABORATORY Potassium 4.4 3.5 - 5.0 mmol/L [facility] [...] [facility] Estimated GFR >60 >=60 [facility] LABORATORY Comment: The reported eGFR should be multiplied b y 1.2 for patients. The MDRD is not an appropriate measure o f renal function for patients with body mass extremes or in patients with acute kidney failure. http://[employer]/DHnkdep http://[employer]/DHMCnkf Specimen Anatomical Collection Method Collection Time Receive d Time (Source) Location / / Volume Laterality Blood specimen 07/07/2017 5:15 AM 017 5:34 (specimen) EST AM EST Resulting Agency Comment Spec In Lab Daphne Shahid MD CHEMISTRY ORDERABLES Performing Organization Address City/State/[place] [address] (ABNORMAL) Cardiac Enzymes (LEB/CGP) (07/07/2017 5:15 AM EST) P athologist Signature Troponin-T 2.07 (H) 0.00 - [facility] 0.00 ng/mL [facility] LABORATORY Comment: The 99th percentile for Troponin [...] additional sample may be indicated. Reference: Third Coolin Definition of Myocardial Infarction. Journal of the [place] College [employer] 2012;60:1581-98 CK, Total 88 0 - 200 unit/L [facility] LABORATORY Specimen Anatomical Collection Method Collection Time Receive d Time (Source) Location / / Volume Laterality Blood specimen 07/07/2017 5:15 AM 017 5:34 (specimen) EST AM EST Resulting Agency Comment Spec In Lab Daphne Shahid MD CHEMISTRY ORDERABLES Performing Organization Address City/[facility]/ZIP Code Phon e Number [address] POCT Glucose (07/07/2017 5:01 AM EST) athologist Signature POC Glucose 182 65 - [address] [facility]dL [facility] LABORATORY Comment: Supplemental ranges: <140 mg/dL before meals <180 mg/dL all other times of the day Specimen Anatomical Collection Method Collection Time Receive d Time (Source) Location / / Volume Laterality Blood specimen 07/07/2017 5:01 AM 017 5:01 (specimen) EST AM EST Daphne Shahid MD POINT OF CARE TEST ORDERABLE S Performing Organization Address City/[facility]/ZIP [facility] [place] [address] POCT Glucose (07/07/2017 4:08 AM EST) athologist Signature POC Glucose 199 65 - [address] [facility]dL [facility] LABORATORY Comment: Supplemental ranges: <140 mg/dL before meals <180 mg/dL all other times of the day Specimen Anatomical Collection Method Collection Time Receive d Time (Source) Location / / Volume Laterality Blood specimen 07/07/2017 4:08 AM 017 4:08 (specimen) EST AM EST Daphne Shahid MD POINT OF CARE TEST ORDERABLE S Performing Organization Address City/State/[place] [address] POCT Glucose (07/07/2017 3:03 AM EST) athologist Signature POC Glucose 188 65 - 199 [place] mg/dL [facility] LABORATORY Comment: Supplemental ranges: <140 mg/dL before meals <180 mg/dL all other times of the day Specimen Anatomical Collection Method Collection Time Receive d Time (Source) Location / / Volume Laterality Blood specimen 07/07/2017 3:03 AM 017 3:03 (specimen) EST AM EST Daphne Shahid MD POINT OF CARE TEST ORDERABLE S Performing Organization Address City/State/[place] [address] (ABNORMAL) POCT Glucose (07/07/2017 2:08 AM EST) athologist Signature POC Glucose 200 (H) 65 - 199 [facility] mg/dL [facility] LABORATORY Comment: Supplemental ranges: <140 mg/dL before meals <180 mg/dL all other times of the day Specimen Anatomical Collection Method Collection Time Receive d Time (Source) Location / / Volume Laterality Blood specimen 07/07/2017 2:08 AM 017 2:08 (specimen) EST AM EST Daphne Shahid MD POINT OF CARE TEST ORDERABLE S Performing Organization Address City/State/ZIP Code Phon e Number [address] (ABNORMAL) POCT Glucose (07/07/2017 1:31 AM EST) athologist Signature POC Glucose 209 (H) 65 - 199 [facility] mg/dL [facility] LABORATORY Comment: Supplemental ranges: <140 mg/dL before meals <180 mg/dL all other times of the day Specimen Anatomical Collection Method Collection Time Receive d Time (Source) Location / / Volume Laterality Blood specimen 07/07/2017 1:31 AM 017 1:31 (specimen) EST AM EST Daphne Shahid MD POINT OF CARE TEST ORDERABLE S Performing Organization Address City/State/ZIP Code Phon e Number [place] [id number] XR Chest PA or [...] Glucose 161 65 - 199 [facility] mg/dL [facility] LABORATORY Comment: Supplemental ranges: <140 mg/dL before meals <180 mg/dL all other times of the day Specimen Anatomical Collection Method Collection Time Receive d Time (Source) Location / / Volume Laterality Blood specimen 07/07/2017 12:07 7 (specimen) AM EST 12:07 AM EST Daphne Shahid MD POINT OF CARE TEST ORDERABLE S Performing Organization Address City/State/[place] [address] (ABNORMAL) APTT (07/07/2017 12:00 [...] Shahid MD HEMATOLOGY ORDERABLES Performing Organization Address City/[facility]/ZIP [place] [address] POCT Glucose (07/06/2017 9:55 PM EST) athologist Signature POC Glucose 109 65 - 199 [facility] mg/dL [facility] LABORATORY Comment: Supplemental ranges: <140 mg/dL before meals <180 mg/dL all other times of the day Specimen Anatomical Collection Method Collection Time Receive d Time (Source) Location / / Volume Laterality Blood specimen 07/06/2017 9:55 PM 017 9:55 (specimen) EST PM EST Daphne Shahid MD POINT OF CARE TEST ORDERABLE S Performing Organization Address City/[facility]/[place]IP [place] [address] POCT Glucose (07/06/2017 9:04 PM EST) athologist Signature POC Glucose 120 65 - 199 [facility] mg/dL [facility] LABORATORY Comment: Supplemental ranges: <140 mg/dL before meals <180 mg/dL all other times of the day Specimen Anatomical Collection Method Collection Time Receive d Time (Source) Location / / Volume Laterality Blood specimen 07/06/2017 9:04 PM 017 9:04 (specimen) EST PM EST Daphne Shahid MD POINT OF CARE TEST ORDERABLE S Performing Organization Address City/[facility]/[place]IP [place] [address] POCT Glucose (07/06/2017 7:45 PM EST) athologist Signature POC Glucose 158 65 - 199 [facility] mg/dL [facility] LABORATORY Comment: Supplemental ranges: <140 mg/dL before meals <180 mg/dL all other times of the day Specimen Anatomical Collection Method Collection Time Receive d Time (Source) Location / / Volume Laterality Blood specimen 07/06/2017 7:45 PM 017 7:45 (specimen) EST PM EST Daphne Shahid MD POINT OF CARE TEST ORDERABLE S Performing Organization Address City/[facility]/ZIP [place] [address] Potassium (07/06/2017 7:40 PM EST) athologist Signature Potassium 3.9 3.5 - 5.0 [facility] mmol/L [facility] LABORATORY Comment: Please note: ??Patients with WBC [...] Shahid MD CHEMISTRY ORDERABLES Performing Organization Address City/[facility]/[place] [address] (ABNORMAL) Cardiac Enzymes (LEB/CGP) (07/06/2017 7:40 PM EST) athologist Signature Troponin-T 2.27 (H) 0.00 - [facility] 0.00 ng/mL [facility] LABORATORY Comment: The 99th percentile for Troponin [...] additional sample may be indicated. Reference: Third Coolin Definition of Myocardial Infarction. Journal of the [place] College [employer]iology 2012;60:1581-98 CK, Total 93 0 - 200 unit/L [facility] LABORATORY Specimen Anatomical Collection Method Collection Time Receive d Time (Source) Location / / Volume Laterality Blood specimen 07/06/2017 7:40 PM 017 7:52 (specimen) EST PM EST Resulting Agency Comment Spec In Lab Daphne Shahid MD CHEMISTRY ORDERABLES Performing Organization Address City/State/[place] [address] (ABNORMAL) POCT Glucose (07/06/2017 7:13 PM EST) athologist Signature POC Glucose 200 (H) 65 - [address] [facility] LABORATORY Comment: Supplemental ranges: <140 mg/dL before meals <180 mg/dL all other times of the day Specimen Anatomical Collection Method Collection Time Receive d Time (Source) Location / / Volume Laterality Blood specimen 07/06/2017 7:13 PM 017 7:13 (specimen) EST PM EST Daphne Shahid MD POINT OF CARE TEST ORDERABLE S Performing Organization Address City/[facility]/[place] [address] (ABNORMAL) APTT (07/06/2017 6:15 [...] Organization Address City/State/[place] [address] (ABNORMAL) POCT Glucose (07/06/2017 6:03 PM EST) athologist Signature POC Glucose 236 (H) 65 - 199 [facility] mg/dL [facility] LABORATORY Comment: Supplemental ranges: <140 mg/dL before meals <180 mg/dL all other times of the day Specimen Anatomical Collection Method Collection Time Receive d Time (Source) Location / / Volume Laterality Blood specimen 07/06/2017 6:03 PM 017 6:03 (specimen) EST PM EST Daphne Shahid MD POINT OF CARE TEST ORDERABLE S Performing Organization Address City/[facility]/[place]IP [place] [address] (ABNORMAL) POCT Glucose (07/06/2017 5:01 PM EST) athologist Signature POC Glucose 235 (H) 65 - 199 [facility] mg/dL [facility] LABORATORY Comment: Supplemental ranges: <140 mg/dL before meals <180 mg/dL all other times of the day Specimen Anatomical Collection Method Collection Time Receive d Time (Source) Location / / Volume Laterality Blood specimen 07/06/2017 5:01 PM 017 5:01 (specimen) EST PM EST Daphne Shahid MD POINT OF CARE TEST ORDERABLE S Performing Organization Address City/State/[place] [address] (ABNORMAL) POCT Glucose (07/06/2017 4:06 PM EST) P athologist Signature POC Glucose 202 (H) 65 - 199 [facility] mg/dL [facility] LABORATORY Comment: Supplemental ranges: <140 mg/dL before meals <180 mg/dL all other times of the day Specimen Anatomical Collection Method Collection Time Receive d Time (Source) Location / / Volume Laterality Blood specimen 07/06/2017 4:06 PM 017 4:06 (specimen) EST PM EST Daphne Shahid MD POINT OF CARE TEST ORDERABLE S Performing Organization Address City/State/[place] [address] POCT Glucose (07/06/2017 2:59 PM EST) athologist Signature POC Glucose 178 65 - 199 [facility] mg/dL [facility] LABORATORY Comment: Supplemental ranges: <140 mg/dL before meals <180 mg/dL all other times of the day Specimen Anatomical Collection Method Collection Time Receive d Time (Source) Location / / Volume Laterality Blood specimen 07/06/2017 2:59 PM 017 2:59 (specimen) EST PM EST Daphne Shahid MD POINT OF CARE TEST ORDERABLE S Performing Organization Address City/State/[place] [address] (ABNORMAL) Cardiac Enzymes (LEB/CGP) (07/06/2017 2:10 PM EST) P athologist Signature Troponin-T 2.34 (H) 0.00 - [facility] 0.00 ng/mL [facility] LABORATORY Comment: The 99th percentile for Troponin [...] additional sample may be indicated. Reference: Third Coolin Definition of Myocardial Infarction. Journal of the [place] College [employer] Cardiology 2012;60:1581-98 CK, Total 101 0 - 200 unit/L [facility] LABORATORY Specimen Anatomical Collection Method Collection Time Receive d Time (Source) Location / / Volume Laterality Blood specimen 07/06/2017 2:10 PM 017 2:26 (specimen) EST PM EST Resulting Agency Comment Spec In Lab Daphne Shahid MD CHEMISTRY ORDERABLES Performing Organization Address City/State/[place] [address] POCT Glucose (07/06/2017 2:08 PM EST) P athologist Signature POC Glucose 192 65 - 199 [facility] mg/dL [facility] LABORATORY Comment: Supplemental ranges: <140 mg/dL before meals <180 mg/dL all other times of the day Specimen Anatomical Collection Method Collection Time Receive d Time (Source) Location / / Volume Laterality Blood specimen 07/06/2017 2:08 PM 017 2:08 (specimen) EST PM EST Daphne Shahid MD POINT OF CARE TEST ORDERABLE S Performing Organization Address City/State/ZIP Code Phon e Number [address] POCT Glucose (07/06/2017 1:04 PM EST) P athologist Signature POC Glucose 162 65 - [address] [facility] LABORATORY Comment: Supplemental ranges: <140 mg/dL before meals <180 mg/dL all other times of the day Specimen Anatomical Collection Method Collection Time Receive d Time (Source) Location / / Volume Laterality Blood specimen 07/06/2017 1:04 PM 017 1:04 (specimen) EST PM EST Daphne Shahid MD POINT OF CARE TEST ORDERABLE S Performing Organization Address City/[facility]/ZIP Code Phon e Number [address] POCT Glucose (07/06/2017 12:05 PM EST) P athologist Signature POC Glucose 196 65 - [address] [facility] LABORATORY Comment: Supplemental ranges: <140 mg/dL before meals <180 mg/dL all other times of the day Specimen Anatomical Collection Method Collection Time Receive d Time (Source) Location / / Volume Laterality Blood specimen 07/06/2017 12:05 7 (specimen) PM EST 12:05 PM EST Daphne Shahid MD POINT OF CARE TEST ORDERABLE S Performing Organization Address City/State/[place] [address] EKG 12 Lead (07/06/2017 12:00 PM EST) Component Value Ref Range Test Analysis Performed Pathologis t Method Time At Signature Ventricular rate 91 BPM MUSE SYSTEM Atrial Rate 91 BPM MUSE SYSTEM P-R Interval 140 ms MUSE SYSTEM QRS Duration 94 ms MUSE SYSTEM Q-T Interval 394 ms MUSE SYSTEM QTC Calculated 484 ms MUSE SYSTEM (Bezet) Calculated P [place] 36 degrees MUSE SYSTEM Calculated R [place] -19 degrees MUSE SYSTEM Calculated T [place] 104 degrees MUSE SYSTEM INTERPRETATION Normal sinus rhythm MUSE SYSTEM 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) ST & T wave abnormality, consider lateral ischemia Abnormal ECG When compared with ECG of 05-JUL-2017 20:39, No significant change was found Confirmed by MD Luci, Taurus Braun ([id number]) on 07/06/2017 5:07:33 PM Specimen Anatomical Collection Method Collection Time Receive d Time (Source) Location / / Volume Laterality 07/06/2017 12:00 07/06/2017 5:07 PM EST PM EST Daphne Shahid MD ECG ORDERABLES Performing Organization Address City/[facility]/ZIP Code Phon e Number MUSE SYSTEM ABORH Recheck Status (07/06/2017 12:00 PM EST) [facility] Signature ABORH Type Completed [facility] LABORATORY Specimen Anatomical Collection Method Collection Time Receive d Time (Source) Location / / Volume Laterality Blood specimen 07/06/2017 12:00 7 (specimen) PM EST 12:24 PM EST Resulting Agency Comment Spec In Lab Daphne Shahid MD BLOOD BANK ORDERABLES Performing Organization Address City/[facility]/ZIP [place] [address] Antibody screen (07/06/2017 12:00 PM EST) [facility] Method Time Signature Ab Screen Negative [facility] LABORATORY Expires at 07/09/2017 [facility] 235 on: [facility] LABORATORY Specimen Anatomical Collection Method Collection Time Receive d Time (Source) Location / / Volume Laterality Blood specimen 07/06/2017 12:00 7 (specimen) PM EST 12:24 PM EST Resulting Agency Comment Spec In Lab Daphne Shahid MD BLOOD BANK ORDERABLES Performing Organization Address City/[facility]/Z[place] [address] ABO/Rh Typing (07/06/2017 12:00 [...] Organization Address City/State/[place] [address] Prothrombin Time (07/06/2017 11:24 [...] Shahid MD HEMATOLOGY ORDERABLES Performing Organization Address City/[facility]/ZIP [place] [address] (ABNORMAL) APTT (07/06/2017 11:24 [...] Address City/State/ZIP Code Phon e Number [address] POCT Glucose (07/06/2017 11:02 AM EST) athologist Signature POC Glucose 187 65 - 199 [place] mg/dL [facility] LABORATORY Comment: Supplemental ranges: <140 mg/dL before meals <180 mg/dL all other times of the day Specimen Anatomical Collection Method Collection Time Receive d Time (Source) Location / / Volume Laterality Blood specimen 07/06/2017 11:02 7 (specimen) AM EST 11:02 AM EST Daphne Shahid MD POINT OF CARE TEST ORDERABLE S Performing Organization Address City/State/[place] [address] POCT Glucose (07/06/2017 10:18 AM EST) athologist Signature POC Glucose 193 65 - 199 [place] [facility] mg/dL [facility] LABORATORY Comment: Supplemental ranges: <140 mg/dL before meals <180 mg/dL all other times of the day Specimen Anatomical Collection Method Collection Time Receive d Time (Source) Location / / Volume Laterality Blood specimen 07/06/2017 10:18 7 (specimen) AM EST 10:18 AM EST Daphne Shahid MD POINT OF CARE TEST ORDERABLE S Performing Organization Address City/State/[place] [address] POCT Glucose (07/06/2017 9:25 AM EST) athologist Signature POC Glucose 182 65 - 199 [place] [facility] mg/dL [facility] LABORATORY Comment: Supplemental ranges: <140 mg/dL before meals <180 mg/dL all other times of the day Specimen Anatomical Collection Method Collection Time Receive d Time (Source) Location / / Volume Laterality Blood specimen 07/06/2017 9:25 AM 017 9:25 (specimen) EST AM EST Daphne Shahid MD POINT OF CARE TEST ORDERABLE S Performing Organization Address City/State/[place] [address] (ABNORMAL) Cardiac Enzymes (LEB/CGP) (07/06/2017 8:10 AM EST) athologist Signature Troponin-T 2.26 (H) 0.00 - [facility] 0.[facility] ng/mL [facility] LABOR[facility]ORY Comment: The 99th percentile for Troponin [...] for cTnT testing should be obtai pedro lusi serially upon first assessment and again 3 to 6 hours later. If the clinica l suspicion is high and previous samples have been negative an additional sample may be indicated. Reference: Third Coolin Definition of Myocardial Infarction. Journal of the [place] [employer] 2012;60:1581-98 CK, Total 124 0 - 200 unit/L [facility] LABORATORY Specimen Anatomical Collection Method Collection Time Receive d Time (Source) Location / / Volume Laterality Blood specimen 07/06/2017 8:10 AM 017 8:23 (specimen) EST AM EST Resulting Agency Comment Spec In Lab Daphne Shahid MD CHEMISTRY ORDERABLES Performing Organization Address City/State/[place] [address] Magnesium (07/06/2017 8:10 AM EST) athologist Signature Magnesium 0.84 0.69 - 1.07 [facility] mmol/L [facility] LABORATORY Specimen Anatomical Collection Method Collection Time Receive d Time (Source) Location / / Volume Laterality Blood specimen 07/06/2017 8:10 AM 017 8:21 (specimen) EST AM EST Resulting Agency Comment Spec In Lab Daphne Shahid MD CHEMISTRY ORDERABLES Performing Organization Address City/[facility]/[place] [address] (ABNORMAL) Basic Metabolic Panel (non-fasting) (07/06/2017 8:10 AM EST) P athologist Signature Glucose Lvl 199 65 - 199 [facility] mg/dL [facility] LABORATORY Comment: Diabetes: >=200 mg/dL plus symp toms BUN 16 10 - 20 mg/dL [facility] LAB[facility] Creatinine 1.04 0.80 - 1.50 mg/dL [facility] Estimated GFR >60 >=60 [facility] Comment: The reported eGFR should be multiplied b y 1.2 for patients. The MDRD is not an appropriate measure o f renal function for patients with body mass extremes or in patients with acute kidney failure. http://[email or web address]/DHnkdep http://GroupTie.TrademarkFly/DHMCnkf Specimen Anatomical Collection Method Collection Time Receive d Time (Source) Location / / Volume Laterality Blood specimen 07/06/2017 8:10 AM 017 8:21 (specimen) EST AM EST Resulting Agency Comment Spec In Lab Daphne Shahid MD CHEMISTRY ORDERABLES Performing Organization Address City/State/[place] [address] POCT Glucose (07/06/2017 7:34 AM EST) P athologist Signature POC Glucose 198 65 - [address] [facility] Comment: Supplemental ranges: <140 mg/dL before meals <180 mg/dL all other times of the day Specimen Anatomical Collection Method Collection Time Receive d Time (Source) Location / / Volume Laterality Blood specimen 07/06/2017 7:34 AM 017 7:34 (specimen) EST AM EST Daphne Shahid MD POINT OF CARE TEST ORDERABLE S Performing Organization Address City/State/ZIP Code Phon e Number [address] POCT Glucose (07/06/2017 7:03 AM EST) athologist Signature POC Glucose 181 65 - [address] [facility] Comment: Supplemental ranges: <140 mg/dL before meals <180 mg/dL all other times of the day Specimen Anatomical Collection Method Collection Time Receive d Time (Source) Location / / Volume Laterality Blood specimen 07/06/2017 7:03 AM 017 7:03 (specimen) EST AM EST Daphne Shahid MD POINT OF CARE TEST ORDERABLE S Performing Organization Address City/State/[place] [address] XR Chest PA or [...] Glucose 172 65 - 199 [facility] mg/dL [facility] Comment: Supplemental ranges: <140 mg/dL before meals <180 mg/dL all other times of the day Specimen Anatomical Collection Method Collection Time Receive d Time (Source) Location / / Volume Laterality Blood specimen 07/06/2017 6:21 AM 017 6:21 (specimen) EST AM EST Daphne Shahid MD POINT OF CARE TEST ORDERABLE S Performing Organization Address City/State/[place] [address] POCT Glucose (07/06/2017 5:08 AM EST) athologist Signature POC Glucose 154 65 - 199 [facility] mg/dL [facility] Comment: Supplemental ranges: <140 mg/dL before meals <180 mg/dL all other times of the day Specimen Anatomical Collection Method Collection Time Receive d Time (Source) Location / / Volume Laterality Blood specimen 07/06/2017 5:08 AM 017 5:08 (specimen) EST AM EST Daphne Shahid MD POINT OF CARE TEST ORDERABLE S Performing Organization Address City/State/ZIP Code Phon e Number [address] POCT Glucose (07/06/2017 4:05 AM EST) athologist Signature POC Glucose 142 65 - 199 [facility] Comment: Supplemental ranges: <140 mg/dL before meals <180 mg/dL all other times of the day Specimen Anatomical Collection Method Collection Time Receive d Time (Source) Location / / Volume Laterality Blood specimen 07/06/2017 4:05 AM 017 4:05 (specimen) EST AM EST Daphne Shahid MD POINT OF CARE TEST ORDERABLE S Performing Organization Address City/State/ZIP Code Phon e Number [address] POCT Glucose (07/06/2017 3:00 AM EST) athologist Signature POC Glucose 116 65 - 199 [facility] mg/dL [facility] Comment: Supplemental ranges: <140 mg/dL before meals <180 mg/dL all other times of the day Specimen Anatomical Collection Method Collection Time Receive d Time (Source) Location / / Volume Laterality Blood specimen 07/06/2017 3:00 AM 017 3:00 (specimen) EST AM EST Daphne Shahid MD POINT OF CARE TEST ORDERABLE S Performing Organization Address City/State/ZIP Code Phon e Number [address] Potassium (07/06/2017 2:20 AM EST) athologist Signature Potassium 3.9 3.5 - 5.0 [facility] mmol/L [facility] LABORATORY Comment: Please note: ??Patients with WBC [...] Organization Address City/State/[place] [address] Differential, Automated (07/06/2017 2:20 AM EST) athologist Signature Neutrophils % 72.9 % [facility] LABORATORY Neutr Abs (ANC) 5.53 1.70 - [facility] 6.10 [facility] x10(3)/[facility] LABORATORY Lymphocytes % 16.4 % [facility] Lymphocytes Abs 1.2 0.9 - 3.2 [facility] x10(3)/[facility] LABORATORY Monocytes % 9.4 % [facility] Monocyte Abs 0.7 0.3 - 0.9 [facility] x10(3)/[facility] LABORATORY Eosinophils % 0.5 % [facility] Eosinophils Abs 0.0 0.0 - 0.4 [facility] x10(3)/[facility] LABORATORY Basophils % 0.4 % [facility] Basophils Abs 0.0 0.0 - 0.1 [facility] x10(3)/[facility] LABORATORY Immature Gran % 0.40 % [facility] Comment: Immature granulocytes(IG's)percentage an d absolute count will include metamyelocytes, myelocytes, and promyelo cytes. Blood smears from CBCs yielding IG's will be scanned manually for concor dance. If this scan disagrees with the automated IG or if promyelocytes are not ed, a manual differential will be performed. Melisa Gran Abs 0.03 0.00 - 0.04 x10(3)/[facility] LABORATORY Specimen Anatomical Collection Method Collection Time Receive d Time (Source) Location / / Volume Laterality Blood specimen 07/06/2017 2:20 AM 017 2:33 (specimen) EST AM EST Resulting Agency Comment Spec In Lab Daphne Shahid MD HEMATOLOGY ORDERABLES Performing Organization Address City/[facility]/[place] [address] (ABNORMAL) Hemogram (07/06/2017 2:20 AM EST) Analysis Performed At Patho logist Time Signature WBC 7.6 4.0 - 9.5 [facility] LABORATORY RBC 4.52 (L) 4.58 - [place] 5.54 [facility] x10(6)/[facility] LABORATORY Hemoglobin 13.4 (L) 13.7 - [facility] 16.5 gm/dL [facility] LABORATORY Hematocrit 39.7 (L) 40.5 - [facility] 48.5 % [facility] LABORATORY MCV 87.8 82.9 - [facility] R[facility] 93.1 [facility] LABORATORY MCH 29.6 27.5 - [place] 32.1 pg [facility] LABORATORY MCHC 33.8 32.0 - [facility] 35.7 gm/dL [facility] LABORATORY Platelets 189 145 - 357 [facility] x10(3)/[facility] LABORATORY RDWSD 45.6 (H) 36.0 - [facility] 45.0 [facility] LABORATORY RDWCV 14.3 (H) 11.4 - [facility] 13.8 % [facility] LABORATORY MPV 9.1 7.6 - 12.9 [facility] nRBC % Auto 0.0 % [facility] LABORATORY nRBC Abs Auto 0.000 0.000 - [place] 0.000 [facility] x10(3)/[facility] LABORATORY Specimen Anatomical Collection Method Collection Time Receive d Time (Source) Location / / Volume Laterality Blood specimen 07/06/2017 2:20 AM 017 2:33 (specimen) EST AM EST Resulting Agency Comment Spec In Lab Daphne Shahid MD HEMATOLOGY ORDERABLES Performing Organization Address City/State/ZIP [place] [address] (ABNORMAL) APTT (07/06/2017 2:20 [...] Shahid MD HEMATOLOGY ORDERABLES Performing Organization Address City/[facility]/ZIP [place] [address] POCT Glucose (07/06/2017 2:20 AM EST) athologist Signature POC Glucose 115 65 - 199 [facility] mg/dL [facility] LABORATORY Comment: Supplemental ranges: <140 mg/dL before meals <180 mg/dL all other times of the day Specimen Anatomical Collection Method Collection Time Receive d Time (Source) Location / / Volume Laterality Blood specimen 07/06/2017 2:20 AM 017 2:20 (specimen) EST AM EST Daphne Shahid MD POINT OF CARE TEST ORDERABLE S Performing Organization Address City/State/[place] [address] (ABNORMAL) Cardiac Enzymes (LEB/CGP) (07/06/2017 2:20 AM EST) athologist Signature Troponin-T 2.13 (H) 0.00 - [facility] 0.00 ng/mL [facility] LABORATORY Comment: The 99th percentile for Troponin [...] additional sample may be indicated. Reference: Third Coolin Definition of Myocardial Infarction. Journal of the [place] College [employer] 2012;60:1581-98 CK, Total 129 0 - 200 unit/L [facility] LABORATORY Specimen Anatomical Collection Method Collection Time Receive d Time (Source) Location / / Volume Laterality Blood specimen 07/06/2017 2:20 AM 017 2:33 (specimen) EST AM EST Resulting Agency Comment Spec In Lab Daphne Shahid MD CHEMISTRY ORDERABLES Performing Organization Address City/State/ZIP Code Phon e Number [place] [id number] Drive (ABNORMAL) Hemoglobin A1c (07/06/2017 [...] Mellitus, Diabetes Care 2013; 36: Suppl. 1, S67-98 Est Avg Gluc See note mg/dL [place] [...] into estimated average glucose values. ??Diabetes Care 2008:31(8):9326-6072. Specimen Anatomical Collection Method Collection Time Receive d Time (Source) Location / / Volume Laterality Blood specimen 07/06/2017 2:20 AM 017 2:34 (specimen) EST AM EST Resulting Agency Comment Spec In Lab Daphne Shahid MD CHEMISTRY ORDERABLES Performing Organization Address City/State/[place] [address] (ABNORMAL) Lipid Panel (07/06/2017 2:20 AM EST) [facility] Method Time Signature Chol, Total 150 <=239 [place] mg/dL [facility] LABORATORY Triglycerides 129 <=199 [place] mg/dL [facility] LABORATORY HDL 32 (L) >=40 [place] mg/dL [facility] LABORATORY LDL Cholesterol 92 <=190 [place] mg/dL [facility] LABORATORY Chol/HDL Ratio 4.7 ratio [place] [facility] LABORATORY Lipid See Note [place] Hernandes [facility] LAB[facility]ATORY Comment: Lipid management should be guided by a p atient? s ASCVD risk, goals and preferences. ACC/AHA Guidelines recommend high intens ity statin if clinical ASCVD or LDL greater than or equal to 190 mg/dL. http://GroupTie.com/NAB-OPY-Aswmswesy Adults aged 40-75 with LDL 70-189 mg/dL should have their 10 year ASCVD risk estimated with the ACC/AHA ASCVD risk es timator http://tools.acc.org/ZUUPI-Kyhj-Nvqelnjt r/ Statin should be discussed if risk [...] Organization Address City/State/Z[place] [address] POCT Glucose (07/06/2017 1:09 AM EST) P athologist Signature POC Glucose 121 65 - 199 [facility] mg/dL [facility] LABORATORY Comment: Supplemental ranges: <140 mg/dL before meals <180 mg/dL all other times of the day Specimen Anatomical Collection Method Collection Time Receive d Time (Source) Location / / Volume Laterality Blood specimen 07/06/2017 1:09 AM 017 1:09 (specimen) EST AM EST Daphne Shahid MD POINT OF CARE TEST ORDERABLE S Performing Organization Address City/State/[place] [address] POCT Glucose (07/06/2017 12:06 AM EST) athologist Signature POC Glucose 147 65 - 199 [facility] mg/dL [facility] LABORATORY Comment: Supplemental ranges: <140 mg/dL before meals <180 mg/dL all other times of the day Specimen Anatomical Collection Method Collection Time Receive d Time (Source) Location / / Volume Laterality Blood specimen 07/06/2017 12:06 7 (specimen) AM EST 12:06 AM EST Daphne Shahid MD POINT OF CARE TEST ORDERABLE S Performing Organization Address City/State/[place] [address] (ABNORMAL) POCT Glucose (07/05/2017 10:56 PM EST) athologist Signature POC Glucose 200 (H) 65 - 199 [facility] mg/dL [facility] LAB[facility]ATORY Comment: Supplemental ranges: <140 mg/dL before meals <180 mg/dL all other times of the day Specimen Anatomical Collection Method Collection Time Receive d Time (Source) Location / / Volume Laterality Blood specimen 07/05/2017 10:56 7 (specimen) PM EST 10:56 PM EST Daphne Shahid MD POINT OF CARE TEST ORDERABLE S Performing Organization Address City/State/[place] [address] (ABNORMAL) POCT Glucose (07/05/2017 10:05 PM EST) athologist Signature POC Glucose 225 (H) 65 - 199 [place] mg/dL [facility] LABORATORY Comment: Supplemental ranges: <140 mg/dL before meals <180 mg/dL all other times of the day Specimen Anatomical Collection Method Collection Time Receive d Time (Source) Location / / Volume Laterality Blood specimen 07/05/2017 10:05 7 (specimen) PM EST 10:05 PM EST Daphne Shahid MD POINT OF CARE TEST ORDERABLE S Performing Organization Address City/State/[place] [address] (ABNORMAL) POCT Glucose (07/05/2017 9:02 PM EST) P athologist Signature POC Glucose 301 (H) 65 - 199 [place] mg/dL [facility] LABORATORY Comment: Supplemental ranges: <140 mg/dL before meals <180 mg/dL all other times of the day Specimen Anatomical Collection Method Collection Time Receive d Time (Source) Location / / Volume Laterality Blood specimen 07/05/2017 9:02 PM 017 9:02 (specimen) EST PM EST Daphne Shahid MD POINT OF CARE TEST ORDERABLE S Performing Organization Address City/State/[place] [address] XR Chest PA or [...] 474 ms MUSE SYSTEM (Bezet) Calculated P [place] 50 degrees MUSE SYSTEM Calculated R [place] -28 degrees MUSE SYSTEM Calculated T [place] 90 degrees MUSE SYSTEM INTERPRETATION Sinus tachycardia [...] (ANC) 9.08 (H) 1.70 - [facility] 6.10 [facility] x10(3)/[facility] L LABORATORY Lymphocytes % 7.0 % [facility] LABORATORY Lymphocytes Abs 0.7 (L) 0.9 - 3.2 [facility] x10(3)/[facility] LABORATORY Monocytes % 3.7 % [facility] LABORATORY Monocyte Abs 0.4 0.3 - 0.9 [facility] x10(3)/[facility] LABORATORY Eosinophils % 0.1 % [facility] LABORATORY Eosinophils Abs 0.0 0.0 - 0.4 [facility] x10(3)/[facility] LABORATORY Basophils % 0.2 % [facility] LABORATORY Basophils Abs 0.0 0.0 - 0.1 [facility] x10(3)/[facility] LABORATORY Immature Gran % 0.60 [...] Organization Address City/State/[place] [address] (ABNORMAL) Hemogram (07/05/2017 8:20 PM EST) Analysis Performed At Patho logist Time Signature WBC 10.3 (H) 4.0 - 9.5 [facility] x10(3)/[facility] LABORATORY RBC 4.64 4.58 - [place] 5.54 [facility] x10(6)/[facility] LABORATORY Hemoglobin 14.1 13.7 - [facility] 16.5 gm/dL [facility] LABORATORY Hematocrit 40.8 40.5 - [place] 48.5 % [facility] LABORATORY MCV 87.9 82.9 - [facility] 93.1 fL [facility] LABORATORY MCH 30.4 27.5 - [place] 32.1 pg [facility] LABORATORY MCHC 34.6 32.0 - [place] 35.7 gm/dL [facility] LABORATORY Platelets 204 145 - 357 [facility] x10(3)/[facility] LABORATORY RDWSD 46.1 (H) 36.0 - [place] 45.0 [facility] LABORATORY RDWCV 14.5 (H) 11.4 [facility] 13.8 % [facility] LABORATORY MPV 9.7 7.6 - 12.9 [facility] LABORATORY nRBC % Auto 0.0 % [facility] LABORATORY nRBC Abs Auto 0.000 0.000 - [place] 0.000 [facility] x10(3)/[facility] LABORATORY Specimen Anatomical Collection Method Collection Time Receive d Time (Source) Location / / Volume Laterality Blood specimen 07/05/2017 8:20 PM 017 8:27 (specimen) EST PM EST Resulting Agency Comment Spec In Lab Daphne Shahid MD HEMATOLOGY ORDERABLES Performing Organization Address City/[facility]/ZIP Code Phon e Number [address] APTT (07/05/2017 8:20 PM [...] Shahid MD HEMATOLOGY ORDERABLES Performing Organization Address City/[facility]/ZIP [facility] [place] [address] (ABNORMAL) Cardiac Enzymes (LEB/CGP) (07/05/2017 8:20 PM EST) athologist Signature Troponin-T 2.11 (H) 0.00 - [facility] 0.00 ng/mL [facility] LABORATORY Comment: The 99th percentile for Troponin [...] additional sample may be indicated. Reference: Third Coolin Definition of Myocardial Infarction. Journal of the [place] College [employer] Cardiology 2012;60:1581-98 CK, Total 149 0 - 200 unit/L [facility] LABORATORY Specimen Anatomical Collection Method Collection Time Receive d Time (Source) Location / / Volume Laterality Blood specimen 07/05/2017 8:20 PM 017 8:27 (specimen) EST PM EST Resulting Agency Comment Spec In Lab Dpahne Shahid MD CHEMISTRY ORDERABLES Performing Organization Address City/[facility]/ZIP [place] [address] (ABNORMAL) Magnesium (07/05/2017 8:20 PM EST) P athologist Signature Magnesium 0.68 (L) 0.69 - 1.07 [facility] mmol/L [facility] LABORATORY Specimen Anatomical Collection Method Collection Time Receive d Time (Source) Location / / Volume Laterality Blood specimen 07/05/2017 8:20 PM 017 8:27 (specimen) EST PM EST Resulting Agency Comment Spec In Lab Daphne Shahid MD CHEMISTRY ORDERABLES Performing Organization Address City/State/ZIP [place] [address] (ABNORMAL) Basic Metabolic Panel (non-fasting) (07/05/2017 8:20 PM EST) athologist Signature Glucose Lvl 321 (H) 65 - 199 [facility] mg/dL [facility] LABORATORY Comment: Diabetes: >=200 mg/dL plus symp toms BUN 20 10 - 20 mg/dL [facility] LABORATORY Creatinine 1.12 0.80 - 1.50 mg/dL [facility] LABORATORY Sodium 139 135 - 145 mmol/L [facility] LABORATORY Potassium 3.8 3.5 - 5.0 mmol/L [facility] LABOR[facility] [...] [facility] Estimated GFR >60 >=60 [facility] LABORATORY Comment: The reported eGFR should be multiplied b y 1.2 for patients. The MDRD is not an appropriate measure o f renal function for patients with body mass extremes or in patients with acute kidney failure. http://GroupTie.TrademarkFly/DHnkdep http://[employer]/DHMCnkf Specimen Anatomical Collection Method Collection Time Receive d Time (Source) Location / / Volume Laterality Blood specimen 07/05/2017 8:20 PM 017 8:27 (specimen) EST PM EST Resulting Agency Comment Spec In Lab Daphne Shahid MD CHEMISTRY ORDERABLES Performing Organization Address City/State/[place] [address] (ABNORMAL) POCT Glucose (07/05/2017 7:32 PM EST) athologist Signature POC Glucose 296 (H) 65 - 199 [facility] mg/dL [facility] LABORATORY Comment: Supplemental ranges: <140 mg/dL before meals <180 mg/dL all other times of the day Specimen Anatomical Collection Method Collection Time Receive d Time (Source) Location / / Volume Laterality Blood specimen 07/05/2017 7:32 PM 017 7:32 (specimen) EST PM EST Daphne Shahid MD POINT OF CARE TEST ORDERABLE S Performing Organization Address City/State/[place] [address] CARDIAC CATHETERIZATION (07/05/2017 6:47 PM EST) Anatomical Region Laterality Modality Other Specimen (Source) Anatomical Location Collection Method / Collectio n Time Received Time / Laterality Volume Narrative 07/05/2017 7:27 PM EST ?[facility] ? Cardiac Cathete rization/Intervention Report ? Patient Name: Natalya, Gregory ? Procedure Date: 07/05/2017 ? A #: [id number] ? Primary Physician: Clarisa, Jet Sampson ? Case #: [id number] ? File Name: [id number] ? Catheterization Order Number: [id number] ? [facility] ? Final Report [place], [place] ? Patient Name: ? Gregory Natalya ?ID#: ?[id number] ? : ?1945 ? Procedure Date: ? [...] presented with: non -STEMI (w/i 7 days). [place] ?Cardiovascular Society angina c lass was IV. 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 ? Jet Mckenna, M.D. ? Electronically Signed by: Jet Sampson DeVlatrice s, M.D. ? Report Finalized: 07/05/2017 ??19:23 ? Report Last Ammended: 10/26/2017 ??10:29 ? Procedure Note Jet Mckenna MD - 10/26/2017Formatt ing of this note might be different from the original. [facility] Cardiac Catheterization/Intervention Re port Patient Name: Gregory Hoang Procedure Date: 07/05/2017 A #: [id number] Primary Physician: Jet Mckenna Case #: [id number] File Name: [id number] Catheterization Order Number: [id number] [facility] Final Report [place], [place] Patient Name: Gregory Hoang ID#: [id number] 3- : 1945 Procedure Date: July 05, [...] presented with: non-STEMI ( w/i 7 days). [place] [employer] angina class was IV. No [...] site angiograph y and IABP insertion in flue dust laborer. Jet Mckenna M.D. Electronically Signed by: [...] Mccollum ? (Age): 1945(72y) Med Rec#: ? [id number] ?Sex: ?M ? Site Loc: ? [facility] ?Ht / Wt: ??173(cm)/86(kg) Pt. Loc: ?[facility] ? BSA: ?2 Study Date: ?? 07/05/2017 ?Pt. Type: Inpatient Tape: ? Referring: Daphne Shahid ([id number]) Referring: MANDA ALCANTAR Reading: Blade Preston ([id number]) Depot Manager: Dayami Paula BA, RUST Diagnosis: *ICD-10-PCS Non-ST [...] E-wave Vmax ?0.8 ?m/sec ? MV deceleration einf746 ?msec ? MV A-wave Vmax ?0.8 ?m/sec [...] ? Mid-Inferior ?Akinetic ? Mid-Inferoseptal ?Hypokinetic ? [place]-Septal ? Akinetic ? [place]-Anterior ? Hypokinetic ? [place]-Lateral ?Hypokinetic ? [place]-Inferior ? Akinetic ? [place]-Tip ?Akinetic ? This report has been electronically sign ed by: _ Blade Preston MD ? 07/06/2017 08 :53:15 Images reviewed and interpretation verif ied [facility] Cardiac Ultrasound Laboratory Procedure Note Blade Preston MD - 07/06/2017Formatt ing of this note might be different from the original. Procedure: Transthoracic Echocardiogram Patient: NATALYA MCBRIDE(Age): [birth year]72y) Med Rec#: [id number] Sex: M Site Loc: [facility] Ht / Wt: 173(cm)/86(kg) Pt. Loc: U BSA: 2 Study Date: 07/05/2017 Pt. Type: Inpatie nt Tape: Referring: Daphne Shahid ([id number]) Referring: MANDA ALCANTAR Reading: Blade Preston ([id number]) Depot Manager: Dayami Paula BA, RUST Diagnosis: *ICD-10-PCS Non-ST [...] MV E-wave Vmax 0.8 m/sec MV deceleration [id number] msec MV A-wave Vmax 0.8 m/sec MV [...] Hypokinetic Mid-Posterolateral Hypokinetic Mid-Inferior Akinetic Mid-Inferoseptal Hypokinetic [place]-Septal Akinetic [place]-Anterior Hypokinetic [place]-Lateral Hypokinetic [place]-Inferior Akinetic [place]-Tip Akinetic This report has been electronically sign ed by: _ Blade Preston MD 07/06/2017 08:53:15 Images reviewed and interpretation verif ied [facility] Cardiac Ultrasound Laboratory Daphne Shahid MD ECHO ORDERABLES Differential, Automated (07/05/2017 4:55 PM EST) athologist Signature Neutrophils % 77.0 % [facility] LABORATORY Neutr Abs (ANC) 5.26 1.70 - [facility] 6.10 [facility] x10(3)[facility] LABORATORY Lymphocytes % 13.3 % [facility] Lymphocytes Abs 0.9 0.9 - 3.2 [facility] x10(3)/[facility] LABORATORY Monocytes % 8.2 % [facility] Monocyte Abs 0.6 0.3 - 0.9 [facility] x10(3)/[facility] LABORATORY Eosinophils % 0.7 % [facility] Eosinophils Abs 0.0 0.0 - 0.4 [facility] x10(3)/[facility] LABORATORY Basophils % 0.4 % [facility] Basophils Abs 0.0 0.0 - 0.1 [facility] x10(3)/[facility] LABORATORY Immature Gran % 0.40 % [facility] [...] - 0.04 x10(3)/[facility] LABORATORY Specimen Anatomical Collection Method Collection Time Receive d Time (Source) Location / / Volume Laterality Blood specimen 07/05/2017 4:55 PM 017 5:24 (specimen) EST PM EST Resulting Agency Comment Spec In Lab Daphne Shahid MD HEMATOLOGY ORDERABLES Performing Organization Address City/State/[place] [address] (ABNORMAL) Hemogram (07/05/2017 4:55 PM EST) Analysis Performed At Patho logist Time Signature WBC 6.8 4.0 - 9.5 [facility] x[facility](3[facility] LABORATORY RBC 4.67 4.58 - [place] R[place]AN 5.54 [facility] x10(6)/[facility] LABORATORY Hemoglobin 14.0 13.7 [facility] 16.[facility] gm/dL [facility] LABORATORY Hematocrit 41.[address] [facility] 48.5 % [facility] LABORATORY MCV 87.8 82.9 - [facility] RYAN 93.1 [facility] LABORATORY MCH 30.0 27.5 - [place] 32.1 pg [facility] LABORATORY MCHC 34.1 32.0 - [facility] RYAN 35.7 gm/dL [facility] LABORATORY Platelets 197 145 - 357 [facility] x10(3)/[facility] LABORATORY RDWSD 46.4 (H) 36.0 - [facility] RYAN 45.0 [facility] LABORATORY RDWCV 14.5 (H) 11.4 - [facility] RYAN 13.8 % [facility] LABORATORY MPV 9.7 7.6 - 12.9 [facility] LAB[facility]ORY nRBC % Auto 0.0 % [facility] LABOR[facility] nRBC Abs Auto 0.000 0.000 - [facility] RYAN 0.000 [facility] x10(3)/[facility] LABORATORY Specimen Anatomical Collection Method Collection Time Receive d Time (Source) Location / / Volume Laterality Blood specimen 07/05/2017 4:55 PM 017 5:24 (specimen) EST PM EST Resulting Agency Comment Spec In Lab Daphne Shahid MD HEMATOLOGY ORDERABLES Performing Organization Address City/State/ZIP Code Phon [place] [address] (ABNORMAL) Cardiac Enzymes (LEB/CGP) (07/05/2017 4:55 PM EST) athologist Signature Troponin-T 1.69 (H) 0.00 - [place] DAVIS 0.00 ng/mL [facility] LABORATORY Comment: The 99th percentile for Troponin [...] additional sample may be indicated. Reference: Third Coolin Definition of Myocardial Infarction. Journal of the [place] College [employer]iology 2012;60:1581-98 CK, Total 191 0 - 200 unit/L [facility] LABOR[facility] Specimen Anatomical Collection Method Collection Time Receive d Time (Source) Location / / Volume Laterality Blood specimen 07/05/2017 4:55 PM 017 5:56 (specimen) EST PM EST Resulting Agency Comment Spec In Lab Daphne Shahid MD CHEMISTRY ORDERABLES Performing Organization Address City/State/[place] [address] (ABNORMAL) pro-Brain Natriuretic Peptide (07/05/2017 4:55 PM EST) athologist Signature ProBNP 1,598 (H) <=125 [facility] pg/mL [facility] LABORATORY Specimen Anatomical Collection Method Collection Time Receive d Time (Source) Location / / Volume Laterality Blood specimen 07/05/2017 4:55 PM 017 5:24 (specimen) EST PM EST Resulting Agency Comment Spec In Lab Daphne Shahid MD CHEMISTRY ORDERABLES Performing Organization Address City/State/ZIP Code Phon e Number [address] Magnesium (07/05/2017 4:55 PM EST) P athologist Signature Magnesium 0.78 0.69 - 1.07 [facility] mmol/L [facility] LABORATORY Specimen Anatomical Collection Method Collection Time Receive d Time (Source) Location / / Volume Laterality Blood specimen 07/05/2017 4:55 PM 017 5:24 (specimen) EST PM EST Resulting Agency Comment Spec In Lab Daphne Shahid MD CHEMISTRY ORDERABLES Performing Organization Address City/[facility]/ZIP Code Phon e Number [address] (ABNORMAL) Basic Metabolic Panel (non-fasting) (07/05/2017 4:55 PM EST) P athologist Signature Glucose Lvl 230 (H) 65 - 199 [facility] mg/dL [facility] LABORATORY Comment: Diabetes: >=200 mg/dL plus symp toms BUN 19 10 - 20 mg/dL [facility] LABORATORY Creatinine 1.04 0.80 - 1.50 mg/dL [facility] [...] Anion Gap 14 5 - 15 mmol/L [facility] LABORATORY Calcium 8.5 8.5 - 10.5 mg/dL [facility] Linnea [facility] LABORATORY Estimated GFR >60 >=60 [place] [facility] LABORATORY Comment: The reported eGFR should be multiplied b y 1.2 for patients. The MDRD is not an appropriate measure o f renal function for patients with body mass extremes or in patients with acute kidney failure. http://[employer]/nkdep http://[employer]/[facility]f Specimen Anatomical Collection Method Collection Time Receive d Time (Source) Location / / Volume Laterality Blood specimen 07/05/2017 4:55 PM 017 5:24 (specimen) EST PM EST Resulting Agency Comment Spec In Lab Daphne Shahid MD CHEMISTRY ORDERABLES Performing Organization Address City/[facility] [place] [address] (ABNORMAL) APTT (07/05/2017 4:55 [...] Shahid MD HEMATOLOGY ORDERABLES Performing Organization Address City/[facility]/ZIP [facility] [place] [address] (ABNORMAL) POCT Glucose (07/05/2017 4:53 PM EST) P athologist Signature POC Glucose 208 (H) 65 - 199 [facility] mg/dL [facility] LABORATORY Comment: Supplemental ranges: <140 mg/dL before meals <180 mg/dL all other times of the day Specimen Anatomical Collection Method Collection Time Receive d Time (Source) Location / / Volume Laterality Blood specimen 07/05/2017 4:53 PM 017 4:53 (specimen) EST PM EST Daphne Shahid MD POINT OF CARE TEST ORDERABLE S Performing Organization Address City/State/[place] [address] EKG 12 Lead (07/05/2017 4:32 PM EST) Component Value Ref Range Test Analysis Performed Pathologis t Method Time At Signature Ventricular rate 97 BPM MUSE SYSTEM Atrial Rate 97 BPM MUSE SYSTEM P-R Interval 148 ms MUSE SYSTEM QRS Duration 96 ms MUSE SYSTEM Q-T Interval 364 ms MUSE SYSTEM QTC Calculated 462 ms MUSE SYSTEM (Bezet) Calculated P [place] 48 degrees MUSE SYSTEM Calculated R [place] -33 degrees MUSE SYSTEM Calculated T [place] 98 degrees MUSE SYSTEM INTERPRETATION Normal sinus [...] Coronary atherosclerosis of unspecified type of vessel, wiyot or graft Cardiomyopathy, ischemic Other specified forms [...] in dextrose 5% 250 mL EST infusion (RETAIL BUSINESS ANALYST) CONTINUOUS PRN, Starting on Wed07/05/17 at 1837, [...]
Routine documented in this encounter Care Teams Shirt Ironer Relationship Specialty Start Date End Date Lovely Vicente MD PCP - General 04/16/[address] [place] [address] documented as of this encounter
--- OUTSIDE RECORDS SUMMARY | 2022-04-08 08:57 | XMS_ITS | Encounter Summary ---
:1945 Author Organization [facility] [place] [address] Care Team Providers Name Role Phone Angela Sotelo APRN Primary Care Provider Encounter Details Date Type Department Care Team Description 01/16/2014 Surgery Gastroenterology at [facility] Nohemi Jaimes, COLONOSCOPY, [facility] Jorge mcnamara MD [place], [place] [address] [facility] ([facility] [phone] DR Cintron) GASTROENTEROLOGY DEPT. [place], [place] [address] Social History Tobacco Use Types [...] you need to be checked. [facility] [phone] 8a-5p Same Day Endo [phone] 7a-8p Otherwise contact [phone] and ask to speak to the brake reliner classification analyst Follow up care is a shelton part [...] Jaimes MD - 01/16/2014 9:49 AM EDT [facility] Operative Note Patient Name: Gregory Fatima : [id number] MR#: [id number] Case Date: 01/16/2014 Surgeon: Surgeon(s) and Role: * Nohemi Jaimes MD - Primary Preoperative diagnosis: 5 yr surv. Full procedure note is documented under the Procedure section of eDH. documented in this encounter Plan of Treatment Upcoming Encounters Date Type Specialty Care Team Description 05/28/2022 Appointment Cardiology Zulma Dolan MD [facility] [address] [place] [address] (Wo rk) 05/28/2022 Laboratory Appointment Lab 05/28/2022 Office Visit Cardiology Zulma Dolan MD [facility] [place] [address] Liz Poole PA [facility] [place] [address] 06/10/2022 Office Visit Dermatology Laura Scherer MD [facility] [address] [place] [address] (Wo rk) documented as of this encounter [...] Surgical Pathology Report (01/16/2014 9:53 AM EDT) [facility] Method Time Signature Surgical CERNER Pathology ? [facility] Report ? Provider: ?? SHREE, NOHEMI Gonzalez ?Pt. Name: ?? MALICKA RT, GREGORY E ? Acc #: ?[id number] ?Pt. MRN: ?[id number] ? Col Date: ?? 4 ? /Sex: [...] City/State/ZIP Code Phon e Number [place] [phone] HOSPITAL LAB[address]ORY [address] RAKESH WALKER Specimen to [...] [facility]/ZIP [place] [address] CERNER MILLENNIUM Specimen to [...] MD PATHOLOGY/CYTOLOGY ORDERABLE S Performing Organization Address [facility] [place] [address] CERNER MILLENNIUM COLONOSCOPY (01/16/2014 7:25 AM EDT) [facility] gist Method Time Signature COLONOSCOPY [facility] [employer] Endoscopy Patient Name: Gregory Fatima ? Procedure Date: 01/16/2014 7:25 AM ? N: [id number] ? Date of : 1945 ? Age: 68 ? Order #: [id number] ? Procedure: ? Colonoscopy Indications: ? High [...] Laterality 01/16/2014 7:25 AM EDT Angela Sotelo ADMISSIONS MANAGER RN GENERAL SURGICAL ORDERABLES Performing Organization Address City/State/ZIP [...] documented in this encounter Care Teams Supervisor Network Control Operators Relationship Specialty Start Date End Date Angela Sotelo APRN PCP - General 01/25/13 04/15/[address] [place] [address] documented as of this encounter
--- OUTSIDE RECORDS SUMMARY | 2022-04-08 08:57 | XMS_ITS | Encounter Summary ---
:1945 Author Organization [facility] [place] [address] Care Team Providers Name Role Phone Angela Holliday APRN Primary Care Provider Encounter Details Date Type Department Care Team Description 03/30/2013 Telephone General Surgery at [facility] Cliff Nevarez, [place] [address] Social History Tobacco Use Types Packs/Day [...] Cardiology Zulma Dolan MD [facility] er [place], [place] [address] (Wo rk) 05/28/2022 Laboratory Appointment Lab 05/28/2022 Office Visit Cardiology Zulma Dolan MD [facility] [place] [address] Liz Poole PA [facility] [place] [address] 06/10/2022 Office Visit Dermatology Laura Scherer MD [facility] [address], [place] [address] (Wo rk) documented as of this encounter Visit Diagnoses Not on filedocumented in this encounter Care Teams Instructional Writer Relationship Specialty Start Date End Date Angela Holliday APRN PCP - General 01/25/13 04/15/[address] [place] [address] documented as of this encounter
--- OUTSIDE RECORDS SUMMARY | 2022-04-08 08:57 | XMS_ITS | Encounter Summary ---
:1945 Author Organization [facility] Address [facility] [place] [address] Care Team Providers Name Role Phone Lovely Vicente MD Primary Care Provider Reason for Visit Reason Comments Skin Check Encounter Details Date Type Department Care Team Description 11/05/2015 Office Visit Dermatology at [facility] benign nevi; Abdelrahman HOOPER MD Lentigines; [address] [facility] History of melanoma; [place] [address] Skin exam for malignant neoplasm [phone] [facility]-[place] [place], [place] [address] Social History Tobacco Use Types [...] Diagnostic, Drum (ACCU-CHEK COMPACT TEST) Strip by [facility].(Non- Drug; Combo Route) route 2 [...] the presence of Dr. Garcia.: GINNY CHRISTIANSEN ENOLOGIST and Judit Cruz, Clinical Scribe I performed the above scribed service and agree with the accuracy of the documentation in this encounter. Rigoberto Garcia MD Section of Dermatology [facility] documented in this encounter Plan of Treatment Upcoming Encounters Date Type Specialty Care Team Description 05/28/2022 Appointment Cardiology Zulma Dolan MD [facility] [address] [place], [place] [address] (Wo rk) 05/28/2022 Laboratory Appointment Lab 05/28/2022 Office Visit Cardiology Zulma Dolan MD [facility] [place] [address] Liz Poole PA [facility] [place] [address] 06/10/2022 Office Visit Dermatology Laura Scherer MD [facility] [address], [place] [address] (Wo rk) documented as of this encounter Visit Diagnoses Diagnosis Multiple benign nevi Benign neoplasm of skin, site unspecifie d Lentigines Other dyschromia History of melanoma Personal history of malignant melanoma o f skin Skin exam for malignant neoplasm Screening for malignant neoplasm of the skin documented in this encounter Care Teams Legal Entity Controller Relationship Specialty Start Date End Date Lovely Vicente MD PCP - General 04/16/15 [facility] [address] [place] [address] (work) documented as of this encounter
--- OUTSIDE RECORDS SUMMARY | 2022-04-08 08:57 | XMS_ITS | Encounter Summary ---
:1945 Author Organization [facility] [place] [address] Care Team Providers Name Role Phone Lovely Vicente MD Primary Care Provider Reason for Visit Reason Onset Date Comments Pre Procedure Call 12/02/2016 Encounter Details Date Type Department Care Team Description 12/02/2016 Telephone Dermatology at [facility] Mira James LPN Pre Procedure Call [address] [place] [address] Social History Tobacco Use Types Packs/Day [...] Zulma Dolan MD [facility] [place], [place] [address] (Wo lissa) 05/28/2022 Laboratory Appointment Lab 05/28/2022 Office Visit Cardiology Zulma Dolan MD [facility] [place] [address] Liz Poole PA [facility] [place] [address] 06/10/2022 Office Visit Dermatology Laura Scherer MD [facility] [address], [place] [address] (Wo rk) documented as of this encounter Visit Diagnoses Not on filedocumented in this encounter Care Teams Human Resources Assistant Relationship Specialty Start Date End Date Lovely Vicente MD PCP - General 04/16/[address] [place] [address] documented as of this encounter
--- OUTSIDE RECORDS SUMMARY | 2022-04-08 08:57 | XMS_ITS | Encounter Summary ---
:1945 Author Organization [facility] [place] [address] Care Team Providers Name Role Phone Angela Holliday APRN Primary Care Provider Encounter Details Date Type Department Care Team Description 04/05/2013 Office Visit Urology at [facility] [place] [address] Social History Tobacco Use Types Packs/Day Years Used Date Former Smoker Alcohol Use Standard Drinks/Week Comments No 0 (1 standard drink = 0.6 oz pure alcoho l) Sex Assigned at Date Recorded Not on file documented as of this encounter Plan of Treatment Upcoming Encounters Date Type Specialty Care Team Description 05/28/2022 Appointment Cardiology Zulma Dolan MD [facility] [place] [address] (Wo rk) 05/28/2022 Laboratory Appointment Lab 05/28/2022 Office Visit Cardiology Zulma Dolan MD [facility] [place] [address] Liz Poole PA [facility] [place] [address] 06/10/2022 Office Visit Dermatology Laura Scherer MD [facility] [address] [place], [place] [address] (Wo rk) documented as of this encounter Visit Diagnoses Not on filedocumented in this encounter Care Teams Reach Lift Truck Driver Relationship Specialty Start Date End Date Angela Holliday APRN PCP - General 01/25/13 04/15/[address] [place] [address] documented as of this encounter
--- OUTSIDE RECORDS SUMMARY | 2022-04-08 08:57 | XMS_ITS | Encounter Summary ---
:1945 Author Organization [facility] [place] [address] Care Team Providers Name Role Phone Lovely Vicente MD Primary Care Provider Reason for Visit Reason Comments Skin Lesion Encounter Details Date Type Department Care Team Description 11/24/2016 [facility] uncertain behavior [facility]; Road IIIMD Pigmented skin lesion of uncertain natur e; [address] [facility] [place] of [place] [address] [facility] SIM[facility]N-DERMATOLGY [place], [place] [address] Social History Tobacco Use Types [...] or concerns, please call the office at [phone]. If it is after 5PM, or a holiday or weekend, please call [phone] and ask for the Cover Maker on-call. documented in this encounter Progress Notes [...] 71 y.o. year old male.Established patient of [facility]. Last seen 06/05/16. Here today for new [...] Dolan MD [facility] er [place] [address] (Wo rk) 05/28/2022 Laboratory Appointment Lab 05/28/2022 Office Visit Cardiology Zulma Dolan MD [facility] [place] [address] Liz Poole PA [facility] [place] [address] 06/10/2022 Office Visit Dermatology Laura Scherer MD [facility] ER [address], [place] [address] (Wo rk) documented as of [...] Component Value Ref Test Analysis Performed At [facility] gist Range Method Time Signature Surgical [id number] ?Location: [facility] Report The [...] Organization Address City/State/[place] [address] Specimen to Pathology (NON-OR) [...] Organization Address City/State/[place] [address] documented in this encounter Visit Diagnoses Diagnosis Neoplasm of uncertain behavior of skin Pigmented skin lesion of uncertain natur e History of melanoma Personal history of malignant melanoma o f skin documented in this encounter Care Teams Black Puller Relationship Specialty Start Date End Date Lovely Vicente MD PCP - General 04/16/[address] [place] [address] documented as of this encounter
--- OUTSIDE RECORDS SUMMARY | 2022-04-08 08:57 | XMS_ITS | Encounter Summary ---
:1945 Author Organization [facility] [place] [address] Care Team Providers Name Role Phone Angela Holliday APRN Primary Care Provider Reason for Visit Reason Comments Benign Prostatic Hypertrophy Encounter Details Date Type Department Care Team Description 11/28/2013 Follow[facility]Up Urology at [facility] Blade Smith, Urinary retention (Primary D x); [facility] BPH (benign prostatic hyperplasia) [place] [address] UROLOGY DEPT [place], [place] [address] (Wo rk) Social History Tobacco [...] Zulma Dolan MD [facility] [address] [place], [place] [address] (Wo rk) 05/28/2022 Laboratory Appointment Lab 05/28/2022 Office Visit Cardiology Zulma Dolan MD [facility] [place] [address] Liz Poole PA [facility] [place] [address] 06/10/2022 Office Visit Dermatology Laura Scherer MD [facility] [address], [place] [address] (Wo rk) documented as of [...] Organization Address City/State/[place] [address] CERNER MILLENNIUM documented in this encounter Visit Diagnoses Diagnosis Urinary retention - Primary Retention of urine, unspecified BPH (benign prostatic hyperplasia) Unspecified hyperplasia of prostate with out urinary obstruction and other lower urinary tract symptoms (LUTS) documented in this encounter Care Teams Insole Toe Snipping Machine Operator Relationship Specialty Start Date End Date Angela Holliday APRN PCP - General 01/25/13 04/15/[address] [place] [address] documented as of this encounter
--- OUTSIDE RECORDS SUMMARY | 2022-04-08 08:57 | XMS_ITS | Encounter Summary ---
:1945 Author Organization [facility] [place] [address] Care Team Providers Name Role Phone Lovely Vicente MD Primary Care Provider Reason for Visit Reason Comments Nevus excision dysplastic nevus mi d upper abdomen Encounter Details Date Type Department Care Team Description 12/03/2016 Procedure visit Dermatology at Halima Dubois Dysplastic nevus of Road MD Adrián trunk [address] [facility] [address] [facility] [phone] [address]-DERMATOLGY [place] [address] Social History Tobacco Use Types Packs/Day Years [...] Halima Cordero MD during the day at [phone] Nurse: Mira [phone] Amy After 5 PM and on weekends, please call the hospital number , and ask for the Rn Gastroenterology distance education faculty liaison. documented in this encounter Progress Notes Halima Cordero MD - 12/10/2016 5:41 PM EDT Gwendolyn, Excision shows scar, there is no residual of the severely dysplastic nevus. Please notify patient and check on wound healing. Thank you, DTB Halima Cordero MD - 12/03/2016 3:00 PM EDT Images from the original note were not included. Dermatology Procedure note: Attending: Halima Cordero MD Cath Lab Radiological Technologist: Mira James LPN Referring MD: Rigoberto Garcia [...] to call the clinic or the on-call forming process line worker over the weekend. ??? Name of Procedure? [...] MD [facility] [place], [place] [address] (Wo rk) 05/28/2022 Laboratory Appointment Lab 05/28/2022 Office Visit Cardiology Zulma Dolan MD [facility] [place] [address] Liz Poole PA [facility] [place] [address] 06/10/2022 Office Visit Dermatology Laura Scherer MD [facility] DR TEJA GR-DERMAT [place], [place] [address] (Wo rk) documented as of [...] Component Value Ref Test Analysis Performed At [facility] Method Time Signature Surgical [id number] ?Location: [facility] The signing pathologist has (i) examined the [...] Clinical Diagnosis: Dysplastic nevus, see previous pathology [id number] SPECIMEN PROCESSING A - Labeled/Fixative: Mid-upper abdomen, [...] Organization Address City/State/[place] [address] Specimen to Pathology (NON-OR) [...] Organization Address City/State/[place] [address] documented in this encounter Visit Diagnoses Diagnosis Dysplastic nevus of trunk Benign neoplasm of skin of trunk, except scrotum documented in this encounter Care Teams Concrete Craftsman Relationship Specialty Start Date End Date Lovely Vicente MD PCP - General 04/16/15 [address] [place] [address] documented as of this encounter
--- OUTSIDE RECORDS SUMMARY | 2022-04-08 08:57 | XMS_ITS | Encounter Summary ---
:1945 Author Organization [facility] [place] [address] Care Team Providers Name Role Phone Angela Holliday APRN Primary Care Provider Reason for Visit Reason Onset Date Comments Other 03/30/2013 blood in catheter ba g Encounter Details Date Type Department Care Team Description 03/30/2013 Telephone General Surgery at [facility] Janneth Sharma, Other (blood in [facility] RN catheter bag) [place] [address] Social History Tobacco Use Types Packs/Day [...] Zulma Dolan MD [facility] [place], [place] [address] (Wo rk) 05/28/2022 Laboratory Appointment Lab 05/28/2022 Office Visit Cardiology Zulma Dolan MD [facility] [place] [address] Poole PA [facility] [place] [address] 06/10/2022 Office Visit Dermatology Laura Scherer MD [facility] [address] TE[address] GR-DERMAT [place], [place] [address] (Wo rk) documented as of this encounter Visit Diagnoses Not on filedocumented in this encounter Care Teams Registration Representative Relationship Specialty Start Date End Date Angela Holliday APRN PCP - General 01/25/13 04/15/[address] [place] [address] documented as of this encounter
--- OUTSIDE RECORDS SUMMARY | 2022-04-08 08:57 | XMS_ITS | Encounter Summary ---
:1945 Author Organization [facility] [place] [address] Care Team Providers Name Role Phone Lovely Vicente MD Primary Care Provider Reason for Visit Reason Comments Follow-up Encounter Details Date Type Department Care Team Description 06/03/2017 Office Visit Dermatology at Rigoberto Forman benign nevi; Abdelrahman HOOPER MD History of melanoma; [address] [facility] History of dysplastic nevus; [place] [address] Skin exam for malignant neoplasm [phone] [facility]-DERMATOLGY [place], [place] [address] Social History Tobacco Use [...] Zulma Dolan MD [facility] [place], [place] [address] (Wo rk) 05/28/2022 Laboratory Appointment Lab 05/28/2022 Office Visit Cardiology Zulma Dolan MD [facility] [place] [address] Liz Poole PA [facility] [place] [address] 06/10/2022 Office Visit Dermatology Laura Scherer MD [facility] DR [address]-DERMAT [place], [place] [address] (Wo rk) documented as of [...] skin documented in this encounter Care Teams Construction Project Coordinator Relationship Specialty Start Date End Date Lovely Vicente MD PCP - General 04/16/15 [facility] [address] [place] [address] documented as of this encounter
--- OUTSIDE RECORDS SUMMARY | 2022-04-08 08:57 | XMS_ITS | Encounter Summary ---
:1945 Author Organization [facility] [place] [address] Care Team Providers Name Role Phone Lovely Vicente MD Primary Care Provider Encounter Details Date Type Department Care Team Description 07/10/2016 Telephone Dermatology at [facility] Rigoberto White III, [address] [place] [address] [facility] [phone] [facility]DER[facility] [place], [place] [address] (Wo rk) Social History Tobacco [...] Dolan MD [facility] [address] [place], [place] [address] (Wo rk) 05/28/2022 Laboratory Appointment Lab 05/28/2022 Office Visit Cardiology Zulma Dolan MD [facility] [place] [address] Liz Poole PA [facility] [place] [address] 06/10/2022 Office Visit Dermatology Laura Scherer MD [facility] DR TEJA MARIE-DERMAT [place], [place] [address] (Wo rk) documented as of this encounter Visit Diagnoses Not on filedocumented in this encounter Care Teams Press Operator Apprentice Relationship Specialty Start Date End Date Lovely Vicente MD PCP - General 04/16/15 [facility] [address] [place] [address] documented as of this encounter
--- OUTSIDE RECORDS SUMMARY | 2022-04-08 08:57 | XMS_ITS | Encounter Summary ---
:1945 Author Organization [place] [address] Care Team Providers Name Role Phone MiyaAngela STACIE Primary Care Provider Reason for Visit Reason Comments Urinary Retention Encounter Details Date Type Department Care Team Description 05/16/2013 Follow-Up Urology at [facility] Blade Smith, Retention of urine [facility] (Primary Dx) [place] [address] UROLOGY DEPT [place] [address] (Wo rk) Social History Tobacco Use Types [...] Dolan MD [facility] [address] [place], [place] [address] (Wo rk) 05/28/2022 Laboratory Appointment Lab 05/28/2022 Office Visit Cardiology Zulma Dolan MD [facility] [place] [address] Liz Poole PA [facility] [place] [address] 06/10/2022 Office Visit Dermatology Laura Scherer MD [facility] [address] TE[address] GR-DERMAT [place], [place] [address] (Wo rk) documented as of this encounter Visit Diagnoses Diagnosis Retention of urine - Primary Retention of urine, unspecified documented in this encounter Care Teams Senior Architect/Design Manager Relationship Specialty Start Date End Date Angela Holliday APRN PCP - General 01/25/13 04/15/[address] [place] [address] documented as of this encounter
--- OUTSIDE RECORDS SUMMARY | 2022-04-08 08:57 | XMS_ITS | Encounter Summary ---
:1945 Author Organization [facility] [place] [address] Care Team Providers Name Role Phone Angela Holliday STACIE Primary Care Provider Encounter Details Date Type Department Care Team Description 04/04/2013 Telephone Urology at [facility] Parker Sanchez MD [facility] [place] [address] UROLOGY DEPT [phone] [place], [place] [address] (Wo rk) Social History Tobacco [...] Zulma Dolan MD [facility] Dr [place], [place] [address] (Wo rk) 05/28/2022 Laboratory Appointment Lab 05/28/2022 Office Visit Cardiology Zulma Dolan MD [facility] [place] [address] Liz Poole PA [facility] [place] [address] 06/10/2022 Office Visit Dermatology Laura Scherer MD [facility] [address] TE[address] GR-DERMAT [place], [place] [address] (Wo rk) documented as of this encounter Visit Diagnoses Not on filedocumented in this encounter Care Teams Rf Microwave Engineer Relationship Specialty Start Date End Date Angela Holliday APRN PCP - General 01/25/13 04/15/[address] [place] [address] documented as of this encounter
--- OUTSIDE RECORDS SUMMARY | 2022-04-08 08:57 | XMS_ITS | Encounter Summary ---
:1945 Author Organization [facility] [place] [address] Care Team Providers Name Role Phone Lovely Vicente MD Primary Care Provider Encounter Details Date Type Department Care Team Description 09/03/2016 Laboratory Appointment Lab at [facility] Hx of [facility] [place] [address] Social History Tobacco Use Types Packs/Day Years [...] [facility] [place] [address] [place] [address] (Wo rk) 05/28/2022 Laboratory Appointment Lab 05/28/2022 Office Visit Cardiology Zulma Dolan MD [facility] [place] [address] Liz Poole PA [facility] [place] [address] 06/10/2022 Office Visit Dermatology Laura Scherer MD [facility] ER DR TEJA GR-DERMAT [place], [place] [address] (Wo rk) documented as [...] AM EST) athologist Signature Thyroglobulin <0.4 <=54.9 [facility] ng/mL [facility] LABORATORY Comment: Interpret with caution. Tg levels [...] than those obtained with T4 withdrawal protocol (Cameron BR et al. J Clin Endo Metab 1999;84:7646-5960). Assay performed using the DPC Immulite T [...] Address City/State/ZIP Code Phon e Number [address] [facility] (09/03/2016 11:07 AM EST) P athologist Signature TSH 3.01 0.27 - 4.20 [facility] mcIU/mL [facility] LABORATORY Specimen Anatomical Collection Method Collection Time Receive d Time (Source) Location / / Volume Laterality Blood specimen 09/03/2016 11:07 7 (specimen) AM EST 11:22 AM EST Resulting Agency Comment Spec In Lab Luz Prescott MD CHEMISTRY ORDERABLES Performing Organization Address City/[facility]/ZIP [facility] [place] [address] documented in this encounter Visit Diagnoses Diagnosis Hx of papillary thyroid carcinoma Personal history of malignant neoplasm o f thyroid documented in this encounter Care Teams Bee Robber Relationship Specialty Start Date End Date Lovely Vicente MD PCP - General 04/16/15 [address] [place] [address] documented as of this encounter
--- OUTSIDE RECORDS SUMMARY | 2022-04-08 08:57 | XMS_ITS | Encounter Summary ---
:1945 Author Organization [facility] [address] Care Team Providers Name Role Phone Lovely Vicente MD Primary Care Provider Reason for Visit Reason Onset Date Comments Referral 10/30/2015 Urgent referral for mac on SIM[address]N [address]AVIS Encounter Details Date Type Department Care Team Description 10/30/2015 Telephone Ophthalmology at [facility] Jayson Ruiz Referral (Urgent [facility] MD Grabiel referral for mac on [facility] DR [address] [place]) [place] [address] OPHTHALMOLOGY DEPT. [phone] [place], [place] [address] (Wo rk) Social History Tobacco [...] Dolan MD [facility] Dr [place], [place] [address] (Wo rk) 05/28/2022 Laboratory Appointment Lab 05/28/2022 Office Visit Cardiology Zulma Dolan MD [facility] [place] [address] Liz Poole PA [facility] [place] [address] 06/10/2022 Office Visit Dermatology Laura Scherer MD [facility] DR TEJA GR-DERMAT [place], [place] [address] (Wo rk) documented as of this encounter Visit Diagnoses Not on filedocumented in this encounter Care Teams Label Drier Relationship Specialty Start Date End Date Lovely Vicente MD PCP - General 04/16/[address] [place], [place] [address] documented as of this encounter
--- OUTSIDE RECORDS SUMMARY | 2022-04-08 08:57 | XMS_ITS | Encounter Summary ---
:1945 Author Organization [facility] [place] [address] Care Team Providers Name Role Phone Lovely Vicente MD Primary Care Provider Reason for Visit Reason Comments Medication Refill Encounter Details Date Type Department Care Team Description 05/10/2015 Refill Endocrinology at [facility] Rosalind Covarrubias, [facility] [place] [address] [facility] [phone] ENDOCRINOLOGY [place], [place] [address] (Wo rk) Social History Tobacco [...] Zulma Dolan MD [facility] er [place], [place] [address] (Wo rk) 05/28/2022 Laboratory Appointment Lab 05/28/2022 Office Visit Cardiology Zulma Dolan MD [facility] [place] [address] Liz Poole PA [facility] [place] [address] 06/10/2022 Office Visit Dermatology Laura Scherer MD [facility] ER DR TEJA GR-DERMAT [place], [place] [address] (Wo rk) documented as of this encounter Visit Diagnoses Not on filedocumented in this encounter Care Teams Router Setter Relationship Specialty Start Date End Date Lovely Vicente MD PCP - General 04/16/[address] [place] [address] documented as of this encounter
--- OUTSIDE RECORDS SUMMARY | 2022-04-08 08:57 | XMS_ITS | Encounter Summary ---
:1945 Author Organization [place] [address] Care Team Providers Name Role Phone MiyaAngela STACIE Primary Care Provider Encounter Details Date Type Department Care Team Description 11/27/2013 Orders Only Urology at [facility] Blade Smith, Urinary retention [facility] (Primary Dx) [place] [address] UROLOGY DEPT [place], [place] [address] Social History Tobacco Use Types [...] MD [facility] [place], [place] [address] (Wo rk) 05/28/2022 Laboratory Appointment Lab 05/28/2022 Office Visit Cardiology Zulma Dolan MD [facility] [place] [address] Liz Poole PA [facility] [place] [address] 06/10/2022 Office Visit Dermatology Laura Scherer MD [facility] ER DR TEJA GR-DERMAT [place], [place] [address] (Wo rk) documented as of [...] Address City/State/ZIP [place] [address] CERNER MILLENNIUM documented in this encounter Visit Diagnoses Diagnosis Urinary retention - Primary Retention of urine, unspecified documented in this encounter Care Teams Derrick Car Operator Relationship Specialty Start Date End Date Angela Holliday APRN PCP - General 01/25/13 04/15/[address] [place] [place] [address] documented as of this encounter
--- OUTSIDE RECORDS SUMMARY | 2022-04-08 08:57 | XMS_ITS | Encounter Summary ---
:1945 Author Organization [facility] [place] [address] Care Team Providers Name Role Phone Miya Angela STACIE Primary Care Provider Encounter Details Date Type Department Care Team Description 04/24/2013 Telephone Urology at [facility] Zhen Bowman MD [facility] [place] [address] UROLOGY DEPT [phone] [place], [place] [address] (Wo rk) Social History Tobacco [...] Zulma Dolan MD [facility] [place], [place] [address] (Wo rk) 05/28/2022 Laboratory Appointment Lab 05/28/2022 Office Visit Cardiology Zulma Dolan MD [facility] [place] [address] Liz Poole PA [facility] [place] [address] 06/10/2022 Office Visit Dermatology Laura Scherer MD [facility] DR TE[address] GR-DERMAT [place], [place] [address] (Wo rk) documented as of this encounter Visit Diagnoses Not on filedocumented in this encounter Care Teams Mail Carrier Technician Relationship Specialty Start Date End Date Angela Holliday APRN PCP - General 01/25/13 04/15/[address] [place] [address] documented as of this encounter
--- OUTSIDE RECORDS SUMMARY | 2022-04-08 08:57 | XMS_ITS | Encounter Summary ---
:1945 Author Organization [facility] [place] [address] Care Team Providers Name Role Phone Lovely Vicente MD Primary Care Provider Reason for Visit Reason Comments Skin Check Encounter Details Date Type Department Care Team Description 04/16/2015 Follow-Up Dermatology at [facility]to Forman x of melanoma of skin; Abdelrahman HOOPER MD Multiple benign nevi [address] [place] [address] [facility]DER[facility] [place], [place] [address] (Wo rk) Social History Tobacco [...] Diagnostic, Drum (ACCU-CHEK COMPACT TEST) Strip by [facility].(Non- Drug; Combo Route) route 2 [...] Zulma Dolan MD [facility] [place], [place] [address] (Wo rk) 05/28/2022 Laboratory Appointment Lab 05/28/2022 Office Visit Cardiology Zulma Dolan MD [facility] [place] [address] Liz Poole PA [facility] [address] 06/10/2022 Office Visit Dermatology Laura Scherer MD [facility] DR TEJA GR-DERMAT [place], [place] [address] (Wo rk) documented as of this encounter Visit Diagnoses Diagnosis Hx of melanoma of skin Personal history of malignant melanoma o f skin Multiple benign nevi Benign neoplasm of skin, site unspecifie d documented in this encounter Care Teams Taxicab Coordinator Relationship Specialty Start Date End Date Lovely Vicente MD PCP - General 04/16/[address] [place] [address] [address] [place] [address] documented as of this encounter
--- OUTSIDE RECORDS SUMMARY | 2022-04-08 08:57 | XMS_ITS | Encounter Summary ---
:1945 Author Organization [facility] [place] [address] Care Team Providers Name Role Phone Lovely Vicente MD Primary Care Provider Encounter Details Date Type Department Care Team Description 11/28/2016 Telephone Dermatology at [facility] Rigoberto Garcia III, [address] [place] [address] [facility] [phone] [facility] T[facility]ER SIMÓN-DERMAT [place], [place] [address] (Wo rk) Social History Tobacco [...] Rigoberto Garcia MD Section of Dermatology [facility] documented in this encounter Plan of Treatment Upcoming Encounters Date Type Specialty Care Team Description 05/28/2022 Appointment Cardiology Zulma Dolan MD [facility] [address] [place], [place] [address] (Wo rk) 05/28/2022 Laboratory Appointment Lab 05/28/2022 Office Visit Cardiology Zulma Dolan MD [facility] [place] [address] [facility] [place] [address] 06/10/2022 Office Visit Dermatology Laura Scherer MD [facility] DR TEJA MARIE-DERMAT [place], [place] [address] (Wo rk) documented as of this encounter Visit Diagnoses Not on filedocumented in this encounter Care Teams Fire Lieutenant Marine Relationship Specialty Start Date End Date Lovely Vicente MD PCP - General 04/16/[address] [place] [address] documented as of this encounter
--- OUTSIDE RECORDS SUMMARY | 2022-04-08 08:57 | XMS_ITS | Encounter Summary ---
:1945 Author Organization [facility] [place] [address] Care Team Providers Name Role Phone Angela Holliday APRN Primary Care Provider Encounter Details Date Type Department Care Team Description 03/30/2013 Telephone General Surgery at [facility] Cliff Nevarez, [place] [address] Social History Tobacco Use Types Packs/Day [...] Cardiology Zulma Dolan MD [facility] [address] [place], [place] [address] (Wo rk) 05/28/2022 Laboratory Appointment Lab 05/28/2022 Office Visit Cardiology Zulma Dolan MD [facility] [place] [address] Liz Poole PA [facility] [place] [address] 06/10/2022 Office Visit Dermatology Laura Scherer MD [facility] DR TEJA GR-DERMAT [place], [place] [address] (Wo rk) documented as of this encounter Visit Diagnoses Not on filedocumented in this encounter Care Teams Office Aide Relationship Specialty Start Date End Date Angela Holliday APRN PCP - General 01/25/13 04/15/[address] [place] [address] documented as of this encounter
--- OUTSIDE RECORDS SUMMARY | 2022-04-08 08:57 | XMS_ITS | Encounter Summary ---
:1945 Author Organization [facility] [place] [address] Care Team Providers Name Role Phone Lovely Vicente MD Primary Care Provider Reason for Visit Reason Comments Thyroid Cancer Encounter Details Date Type Department Care Team Description 06/05/2015 Office Visit Endocrinology at [facility] Albertina Prescott, History of papillary [facility] MD Luz adenocarcinoma of [facility] thyroid (Primary Dx) [place] [address] CENTER [phone] [place] [address] Social History Tobacco Use Types Packs/Day Years [...] the thyroid gland were obtained using a Mipagar ultrasound machine. All measurements are given as AP x Transverse x Longitudinal Right Lobe: Absent Left Lobe: Absent Isthmus: Absent Central/Lateral neck: no morphologically abnormal lymph nodes. Impression: No sonographic evidence of recurrence. LUZ PRESCOTT MD Senior Marketing Managermetals analyst Section of Endocrinology [facility] [...] TEST) Strip by [facility]Non-Drug; Combo Route) route 2 times daily. Yes [...] --f/u in 1 year LUZ PRESCOTT MD Senior Marketing Managermetals analyst Section of Endocrinology [facility] [...] [facility] [address] [place], [place] [address] (Wo rk) 05/28/2022 Laboratory Appointment Lab 05/28/2022 Office Visit Cardiology Zulma Dolan MD [facility] [place] [address] Liz Poole PA [facility] [place] [address] 06/10/2022 Office Visit Dermatology Laura Scherer MD [facility] ER DR [address]-DERMAT OLOGY [place], [place] [address] (Wo rk) documented [...] athologist Signature Thyroglobulin 0.6 <=54.9 CERNER ng/mL [facility] Comment: Interpret with caution. Tg [...] BR et al. J Clin Endo Metab 1999;84:8748-6560). Assay performed using the DPC Immulite T [...] Organization Address City/State/[place] [address] CERNER MILLENNIUM (ABNORMAL) TSH (06/05/2015 9:04 AM EST) P athologist Signature TSH 5.88 (H) 0.27 - 4.20 CERNER mcIU/mL MILLENNIUM Specimen Anatomical Collection Method Collection Time Receive d Time (Source) Location / / Volume Laterality Blood specimen 06/05/2015 9:04 AM 015 9:15 (specimen) EST AM EST Resulting Agency Comment Spec In Lab Luz Prescott MD CHEMISTRY ORDERABLES Performing Organization Address City/[facility]/[place] [address] CERNER MILLENNIUM documented in this encounter Visit Diagnoses Diagnosis 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
--- OUTSIDE RECORDS SUMMARY | 2022-04-08 08:57 | XMS_ITS | Encounter Summary ---
:1945 Author Organization [facility] [place] [address] Care Team Providers Name Role Phone MiyaAngela STACIE Primary Care Provider Reason for Visit Reason Comments Post Op voiding trial Encounter Details Date Type Department Care Team Description 04/05/2013 Office Visit [place] [facility] [place]ryl Egan, UTI ([facility] MD tract infection) [facility][note 2] (Primary Dx) [place] [address] UROLOGY DEPT [phone] [place], [place] [address] Social History Tobacco Use Types [...] Zulma Dolan MD [facility] [place], [place] [address] (Wo rk) 05/28/2022 Laboratory Appointment Lab 05/28/2022 Office Visit Cardiology Zulma Dolan MD [facility] [place] [address] Liz Poole PA [facility] [place] [address] 06/10/2022 Office Visit Dermatology Laura Scherer MD [facility] DR TE[address] GR-DERMAT OLOGY [place], [place] [address] (Wo rk) documented as of this encounter Procedures Procedure Name Priority Date/Time Associated Diagnosis Comme nts URINE CULTURE Routine 04/05/2013 11:48 AM UTI (lower urinary R esults for this EDT tract infection) procedure a re in the results section . documented in this encounter Results Urine culture Clean Catch Urine (04/05/2013 11:48 AM EDT) Component Value Ref Test Analysis Performed At [facility] Method Time Signature Urine Culture CERNER ? Patient Name: GREGORY HOANG ? Ordered By: DARRYL EGAN [facility] ? MR#: [id number] ?LOC: ??5B ? /Sex: ??1945 (68 years), [...] S ? Patient: GREGORY HOANG ? MR#: [id number] ? FOOTNOTES ? (1) ? This organism [...] Organization Address City/State/[place] [address] RAKESH WALKER documented in this encounter Visit Diagnoses Diagnosis UTI (lower urinary tract infection) - Pr imary Urinary tract infection, site not specif ied documented in this encounter Care Teams Electrical Engineering Teacher Relationship Specialty Start Date End Date Angela Holliday APRN PCP - General 01/25/13 04/15/[address] [place] [address] documented as of this encounter
--- OUTSIDE RECORDS SUMMARY | 2022-04-08 08:57 | XMS_ITS | Encounter Summary ---
:1945 Author Organization [facility] [place] [address] Care Team Providers Name Role Phone MiyaLokeshAngela STACIE Primary Care Provider Reason for Visit Reason Onset Date Comments Post-op Problem 04/05/2013 voiding trial Encounter Details Date Type Department Care Team Description 04/05/2013 Telephone Urology at [facility] Blade Smith, Post-op Problem [facility] (voiding trial) [place] [address] UROLOGY DEPT [place] [address] (Wo rk) Social History Tobacco Use Types [...] Zulma Dolan MD [facility] [place], [place] [address] (Wo rk) 05/28/2022 Laboratory Appointment Lab 05/28/2022 Office Visit Cardiology Zulma Dolan MD [facility] [place] [address] Liz Poole PA [facility] [place] [address] 06/10/2022 Office Visit Dermatology Laura Scherer MD [facility] DR TEJA GR-DERMAT [place], [place] [address] (Wo rk) documented as of this encounter Visit Diagnoses Not on filedocumented in this encounter Care Teams Nuclear Logging Engineer Relationship Specialty Start Date End Date Angela Holliday APRN PCP - General 01/25/13 04/15/[address] [place] [address] documented as of this encounter
--- OUTSIDE RECORDS SUMMARY | 2022-04-08 08:57 | XMS_ITS | Encounter Summary ---
:1945 Author Organization [facility] [place] [address] Care Team Providers Name Role Phone Lovely Vicente MD Primary Care Provider Encounter Details Date Type Department Care Team Description 09/03/2016 Office Visit Endocrinology at [facility] Maria Ines Stallings of [facility] [place] [address] [place] [address] ENDOCRINOLOGY DEPT [place], [place] [address] Social History Tobacco Use Types [...] to his magnesium pill. LUZ PRESCOTT MD Stock Unloaderlmsw Section of Endocrinology [facility] Luz Prescott MD - 09/03/2016 11:30 AM [...] sonographic evidence of recurrence. LUZ PRESCOTT MD Stock Unloaderlmsw Section of Endocrinology [facility] documented in this encounter Plan of Treatment Upcoming Encounters Date Type Specialty Care Team Description 05/28/2022 Appointment Cardiology Zulma Dolan MD [facility] [place], [place] [address] (Wo rk) 05/28/2022 Laboratory Appointment Lab 05/28/2022 Office Visit Cardiology Zulma Dolan [place] [address] Liz Poole PA [facility] [place] [address] 06/10/2022 Office Visit Dermatology Laura Scherer MD [facility] DR TEJA GR-DERMAT [place], [place] [address] (Wo rk) documented as of this encounter Results Thyroglobulin (09/07/2017 2:41 PM EST) P athologist Signature Thyroglobulin 1.4 <=54.9 KATALINA RYAN ng/mL [facility] Comment: Thyroglobulin [...] not been established. Assay performed using the [employer] Immulite T g immunometric assay (lowest detection [...] Prescott MD CHEMISTRY ORDERABLES Performing Organization Address City/[facility]/ZIP Code Phon e Number [address] TSH (09/07/2017 2:41 PM EST) athologist Signature TSH 3.93 0.27 - 4.20 [facility] mlU/ML [facility] Specimen Anatomical Collection Method Collection Time Receive d Time (Source) Location / / Volume Laterality Blood specimen 09/07/2017 2:41 PM 018 2:46 (specimen) EST PM EST Resulting Agency Comment Spec In Lab Luz Prescott MD CHEMISTRY ORDERABLES Performing Organization Address City/[facility] Phon e Number [address] Thyroglobulin (09/03/2016 11:07 AM EST) athologist Signature Thyroglobulin <0.4 <=54.9 [facility] ng/mL [facility] Comment: Interpret [...] than those obtained with T4 withdrawal protocol ([place] BR et al. J Clin Endo Metab 1999;84:8008-5448). Assay performed using the DPC Immulite T [...] Prescott MD CHEMISTRY ORDERABLES Performing Organization Address City/[facility]/ZIP Code Phon e Number [address] TSH (09/03/2016 11:07 AM EST) P athologist Signature TSH 3.01 0.27 - 4.20 [facility] mcIU/mL [facility] Specimen Anatomical Collection Method Collection Time Receive d Time (Source) Location / / Volume Laterality Blood specimen 09/03/2016 11:07 7 (specimen) AM EST 11:22 AM EST Resulting Agency Comment Spec In Lab Luz Prescott MD CHEMISTRY ORDERABLES Performing Organization Address City/[facility]/[place] [address] documented in this encounter Visit Diagnoses Diagnosis Hx of papillary thyroid carcinoma Personal history of malignant neoplasm o f thyroid documented in this encounter Care Teams Policy Checker Relationship Specialty Start Date End Date Lovely Vicente MD PCP - General 04/16/[address] [place] [address] documented as of this encounter
--- OUTSIDE RECORDS SUMMARY | 2022-04-08 08:57 | XMS_ITS | Encounter Summary ---
:1945 Author Organization [facility] [place] [address] Care Team Providers Name Role Phone Angela Holliday APRN Primary Care Provider Reason for Visit Reason Comments Other Encounter Details Date Type Department Care Team Description 08/01/2013 Telephone Dermatology at [facility] Rigoberto Garcia III, [address] [place] [address] [facility] [phone] TEJA MARIE-DERMAT [place], [place] [address] (Wo rk) Social History Tobacco [...] them. Component Value Surgical Pathology Final Report [facility] Provider: RIGOBERTO GARCIA III Pt. Name: DON HOANG Acc #: [id number] Pt. Col Date: 07/31/2013 /Sex: 1945,(68 years),Male Rec Date: 07/31/2013 LOC: [facility] SURGICAL PATHOLOGY ---Pathologic Diagnosis--- Skin, right [...] Cardiology Zulma Dolan MD [facility] [place], [place] [address] (Wo lissa) 05/28/2022 Laboratory Appointment Lab 05/28/2022 Office Visit Cardiology Zulma Dolan MD [place] [address] Liz Poole PA [facility] [place] [address] 06/10/2022 Office Visit Dermatology Laura Scherer MD [facility] DR TEJA MARIE-DERMAT OLOGY [place], [place] [address] (Wo rk) documented as of this encounter Visit Diagnoses Not on filedocumented in this encounter Care Teams Signal Tower Director Relationship Specialty Start Date End Date Angela Holliday APRN PCP - General 01/25/13 04/15/[address] [place] [address] documented as of this encounter
--- OUTSIDE RECORDS SUMMARY | 2022-04-08 08:57 | XMS_ITS | Encounter Summary ---
:1945 Author Organization [facility] [place] [address] Care Team Providers Name Role Phone Som Holliday APRN Primary Care Provider Encounter Details Date Type Department Care Team Description 04/11/2014 Procedure visit Gastroenterology at [facility], CONV Esophageal reflux [facility] Luz Winchester RN (Primary Dx) [place] [address] Social History Tobacco Use Types Packs/Day Years Used Date Former Smoker Alcohol Use Standard Drinks/Week Comments No 0 (1 standard drink = 0.6 oz pure alcoho l) Sex Assigned at Date Recorded Not on file documented as of this encounter Progress Notes Adalid Can MD - 04/13/2014 3:43 PM EDT ESOPHAGEAL MANOMETRY Don Fatima Male, 69 yrs, 1945 PCP: SOM HOLLIDAY VOLCANOLOGIST: NONE STUDY DATE: 04/11/14 PROVIDER: [place] ([id number]) INDICATION Reflux; preoperative evaluation. METHODS Stationary esophageal manometry was performed with the Spredfast esophageal motility system utilizing the Polygram software [...] of the esophagus. Adalid Can, PhD, MD business writer, [facility] [employer] Section of Gastroenterology and Hepatology [facility] [place] [address] V: [phone] F: [phone] [facility]/gabriela CC/EC: PCP - staff msg copy 04/13/14 Henrique Taylor MD - fax copy 04/13/14 Luz Keller RN - 04/11/2014 8:14 AM EDT Esophageal manometry performed without difficulty and Was well tolerated. documented in this encounter Plan of Treatment Upcoming Encounters Date Type Specialty Care Team Description 05/28/2022 Appointment Cardiology Zulma Dolan MD [facility] [place], [place] [address] (Wo rk) 05/28/2022 Laboratory Appointment Lab 05/28/2022 Office Visit Cardiology Zulma Dolan MD [facility] [place] [address] Liz Poole PA [facility] [place] [address] 06/10/2022 Office Visit Dermatology Laura Scherer MD [facility] DR TEJA GR-DERMAT [place], [place] [address] (Wo rk) documented as of this encounter Visit Diagnoses Diagnosis Esophageal reflux - Primary documented in this encounter Care Teams Product Merchandiser Relationship Specialty Start Date End Date Som Holliday APRN PCP - General 01/25/13 04/15/[address] [place] [address] documented as of this encounter
--- OUTSIDE RECORDS SUMMARY | 2022-04-08 08:57 | XMS_ITS | Encounter Summary ---
:1945 Author Organization [facility] [place] [address] Care Team Providers Name Role Phone Lovely Vicente MD Primary Care Provider Reason for Visit Reason Comments Skin Check Encounter Details Date Type Department Care Team Description 06/05/2016 Office Visit Dermatology at [facility] istory of melanoma; Abdelrahman HOOPER MD Seborrheic keratosis; [address] [facility] [place] (actinic keratosis); [place] [address] Multiple nevi; [phone] [facility] [address]-DERMATOLGY [place], [place] [address] Social History Tobacco Use [...] Diagnostic, Drum (ACCU-CHEK COMPACT TEST) Strip by [facility].(Non- Drug; Combo Route) route 2 [...] Zulma Dolan MD [facility] [place], [place] [address] (Wo rk) 05/28/2022 Laboratory Appointment Lab 05/28/2022 Office Visit Cardiology Zulma Dolan MD [facility] [place] [address] Liz Poole PA [facility] [place] [address] 06/10/2022 Office Visit Dermatology Laura Scherer MD [facility] DR TEJA GR-DERMAT [place], [place] [address] (Wo rk) documented as of this encounter Visit Diagnoses Diagnosis History of melanoma Personal history of malignant melanoma o f skin Seborrheic keratosis Other seborrheic keratosis [place] (actinic keratosis) Actinic keratosis Multiple nevi Benign neoplasm of skin, site unspecifie d Scar Scar condition and fibrosis of skin documented in this encounter Care Teams Barrel Repairer Relationship Specialty Start Date End Date Lovely Vicente MD PCP - General 04/16/[address] [place] [address] documented as of this encounter
--- OUTSIDE RECORDS SUMMARY | 2022-04-08 08:57 | XMS_ITS | Encounter Summary ---
:1945 Author Organization [facility] [place] [address] Care Team Providers Name Role Phone Lovely Vicente MD Primary Care Provider Encounter Details Date Type Department Care Team Description 07/05/2017 Telephone Cardiology Kim Galindo MD [facility] [place] [address] CARDIOLOGY DEPT [phone] [place], [place] [address] (Wo rk) Social History Tobacco [...] 1:54pm Referring Provider: Ivania CROWELL) Patient Location: [facility] Presenting Symptoms per OSH: 72 year old [...] infarct and elevated troponin, transport patient to [facility] for cath this afternoon and arrhythmia monitoring. Kim Galindo MD Fabric Pattern Grader documented in this encounter Plan of Treatment Upcoming Encounters Date Type Specialty Care Team Description 05/28/2022 Appointment Cardiology Zulma Dolan MD [facility] [address] [place], [place] [address] (Wo rk) 05/28/2022 Laboratory Appointment Lab 05/28/2022 Office Visit Cardiology Zulma Dolan MD [facility] [place] [address] Liz Poole PA [facility] [place] [address] 06/10/2022 Office Visit Dermatology Laura Scherer MD [facility] DR [address] GR-DERMAT [place], [place] [address] (Wo rk) documented as of this encounter Visit Diagnoses Not on filedocumented in this encounter Care Teams Cardiovascular Specialist Relationship Specialty Start Date End Date Lovely Vicente MD PCP - General 04/16/[address] [place] [address] documented as of this encounter
--- OUTSIDE RECORDS SUMMARY | 2022-04-08 08:57 | XMS_ITS | Encounter Summary ---
:1945 Author Organization [place] [address] Care Team Providers Name Role Phone MiyaAngela STACIE Primary Care Provider Reason for Visit Reason Onset Date Comments Advice Only 03/31/2013 Encounter Details Date Type Department Care Team Description 03/31/2013 Telephone [facility]rology [place] [facility] Daniele Trejo III, MD Advice Only [facility] [place] [address] [place] [id number] [phone] (Wo rk) Social History Tobacco Use Types [...] Zulma Dolan MD [facility] [place], [place] [address] (Wo rk) 05/28/2022 Laboratory Appointment Lab 05/28/2022 Office Visit Cardiology Zulma Dolan MD [facility] [place] [address] Liz Poole PA [facility] [place] [address] 06/10/2022 Office Visit Dermatology Laura Scherer MD [facility] DR TEJA GR-DERMAT [place], [place] [address] (Wo rk) documented as of this encounter Visit Diagnoses Not on filedocumented in this encounter Care Teams Chilling Hood Operator Relationship Specialty Start Date End Date Angela Holliday APRN PCP - General 01/25/13 04/15/[address] [place] [address] documented as of this encounter
--- OUTSIDE RECORDS SUMMARY | 2022-04-08 08:57 | XMS_ITS | Encounter Summary ---
:1945 Author Organization [facility] [place] [address] Care Team Providers Name Role Phone Lovely Vicente MD Primary Care Provider Reason for Visit Reason Onset Date Comments Medication Refill 12/24/2016 Encounter Details Date Type Department Care Team Description 12/24/2016 Refill Endocrinology at [facility] Luz Stallings MD [facility] [place] [address] ENDOCRINOLOGY DEPT [phone] [place], [place] [address] (Wo rk) Social History Tobacco [...] Zulma Dolan MD [facility] er [address] [place] [address] (Wo rk) 05/28/2022 Laboratory Appointment Lab 05/28/2022 Office Visit Cardiology Zulma Dolan MD [facility] [address] Liz Poole PA [facility] [place] [address] 06/10/2022 Office Visit Dermatology Laura Shcerer MD [facility] DR TEJA GR-DERMAT [place], [place] [address] (Wo rk) documented as of this encounter Visit Diagnoses Not on filedocumented in this encounter Care Teams Siding Mechanic Relationship Specialty Start Date End Date Lovely Vicente MD PCP - General 04/16/[address] [place], [place] [address] documented as of this encounter
--- OUTSIDE RECORDS SUMMARY | 2022-04-08 08:57 | XMS_ITS | Encounter Summary ---
:1945 Author Organization [facility] [address] Care Team Providers Name Role Phone Angela Holliday APRN Primary Care Provider Reason for Visit Reason Comments Skin Check Encounter Details Date Type Department Care Team Description 07/31/2013 Follow-Up Dermatology at [facility] eoplasm of unspecified nature of bone, soft tissue, and skin (Primary Dx); Abdelrahman HOOPER MD Seborrheic psoriasis- scalp and ingtergl uteal area; [address] [facility] Atypical nevus [place] [address] [facility]-DERMATOLGY [place], [place] [address] (Wo rk) Social History [...] encounter. Rigoberto Albarran MD Section of Dermatology [facility] documented in this encounter Plan of Treatment Upcoming Encounters Date Type Specialty Care Team Description 05/28/2022 Appointment Cardiology Zulma Dolan MD [facility] [address] [place] [address] (Wo lissa) 05/28/2022 Laboratory Appointment Lab 05/28/2022 Office Visit Cardiology Zulma Dolan [place] [address] Liz Poole PA [facility] [place] [address] 06/10/2022 Office Visit Dermatology Laura Scherer MD [facility] DR TE[address] GR-DERMAT OLOG[place], [place] [address] (Wo rk) Scheduled Orders Name [...] Component Value Ref Test Analysis Performed At [facility] gist Range Method Time Signature Surgical CERNER Pathology ? [facility] Report ? Provider: ?? RIGOBERTO ALBARRAN III Pt. Name: ?? GREGORY HOANG ?A ? Acc #: ?[id number] ? Pt. ? Col Date: ?? 07/31/2013 [...] negative controls. ??These ? IHC studies provide [facility] pathologist with adjunctive diagnostic information. ? Antibody [...] 0.9 x 0.8 x 0.2 cm. ? [facility] ? Provider: ?? DEION III, RIGOBERTO Pt. Name: ?? GREGORY HOANG ?A ? Acc #: ?[id number] ? Pt. ? Col Date: ?? 07/31/2013 [...] MD PATHOLOGY/CYTOLOGY ORDERABLE S Performing Organization Address City/[facility]/ZIP Code Phon e Number [address] CERNER MILLENNIUM Specimen to [...] MD PATHOLOGY/CYTOLOGY ORDERABLE S Performing Organization Address City/[facility]/[place]IP [place] [address] CERNER MILLENNIUM documented in this encounter Visit Diagnoses Diagnosis Neoplasm of unspecified nature of bone, soft tissue, and skin - Primary Seborrheic psoriasis- scalp and ingtergl uteal area Other psoriasis Atypical nevus of abdominal wall Benign neoplasm of skin of trunk, except scrotum documented in this encounter Care Teams Nursing Informatics Analyst Relationship Specialty Start Date End Date Angela Holliday APRN PCP - General 01/25/13 04/15/[address] [place] [address] documented as of this encounter
--- OUTSIDE RECORDS SUMMARY | 2022-04-08 08:57 | XMS_ITS | Encounter Summary ---
:1945 Author Organization [facility] [place] [address] Care Team Providers Name Role Phone MiyaLokeshAngela STACIE Primary Care Provider Encounter Details Date Type Department Care Team Description 01/16/2014 Hospital Encounter Gastro[facility] at [facility] Nohemi Swann, [facility] [place] [address] [facility] [phone] [facility] [place], [place] [address] Social History Tobacco Use Types [...] you need to be checked. [facility] [phone] 8a-5p Same Day Endo [phone] 7a-8p Otherwise contact [phone] and ask to speak to the urban redevelopment specialist manager of community relations Follow up care is a [place] part [...] Swann MD - 01/16/2014 9:[address] [facility] Operative Note Patient Name: Gregory Fatima : [id number] MR#: [id number] Case Date: 01/16/2014 Surgeon: Surgeon(s) and Role: * Nohemi Swann MD - Primary Preoperative diagnosis: 5 yr surv. Full procedure note is documented under the Procedure section of eDH. documented in this encounter Plan of Treatment Upcoming Encounters Date Type Specialty Care Team Description 05/28/2022 Appointment Cardiology Zulma Dolan MD [facility] [address] [place], [place] [address] (Wo rk) 05/28/2022 Laboratory Appointment Lab 05/28/2022 Office Visit Cardiology Zulma Dolan [place] [facility] [place] [address] Liz Poole PA [facility] [place] [address] 06/10/2022 Office Visit Dermatology Laura Scherer MD [facility] [address] [place], [place] [address] (Wo rk) documented as of this encounter [...] Surgical Pathology Report (01/16/2014 9:53 AM EDT) [facility] Method Time Signature Surgical CERNER Pathology ? [facility] Report ? Provider: ?? NOHEMI SWANN ?Pt. Name: ?? MALICKEliseo RT, GREGORY E ? Acc #: ?[id number] ?Pt. MRN: ?[id number] ? Col Date: ?? 4 ? /Sex: [...] Organization Address City/State/ZIP Code Phon e Number [place] [id number] RAKESH WALKER Specimen to [...] Organization Address City/State/[place] [address] [facility] Specimen to Pathology (surgical or derm) (01/16/2014 9:53 AM EDT) Specimen Anatomical Collection Method Collection Time Receive d Time (Source) Location / / Volume Laterality AP Specimen 01/16/2014 9:53 AM 201 4 9:53 EDT AM EDT Narrative CERNER MILLENNIUM - 01/16/2014 9:53 AM E DT Specimen requisition ordered. ??Separate Pathology report to follow Nohemi Swann MD PATHOLOGY/CYTOLOGY ORDERABLE S Performing Organization Address City/[facility]/[place] [address] CERNER MILLENNIUM COLONOSCOPY (01/16/2014 7:25 AM EDT) [facility] gist Method Time Signature COLONOSCOPY [facility] Endoscopy Patient Name: Gregory Fatima ? Procedure Date: 01/16/2014 7:25 AM ? N: [id number] ? Date of : 1945 ? Age: 68 ? Order #: [id number] ? Procedure: ? Colonoscopy Indications: ? High risk colon cancer surveillance : ? 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 dm on metformin with bs ~ 110 this ? am,s/p melanoma years ago, os a, ? goiter s/p surgery, [facility] Providers: ? Nohemi Swann MD, Blanca xiong, [...] 01/16/2014 7:25 AM EDT Angela Sotelo PROJECT ANALYST GENERAL SURGICAL ORDERABLES Performing Organization Address City/State/ZIP [...] Routine documented in this encounter Care Teams Reel Man Relationship Specialty Start Date End Date Angela Sotelo APRN PCP - General 01/25/13 04/15/[address] [place] [address] documented as of this encounter
--- OUTSIDE RECORDS SUMMARY | 2022-04-08 08:57 | XMS_ITS | Encounter Summary ---
:1945 Author Organization [facility] [place] [address] Care Team Providers Name Role Phone MiyaAngela STACIE Primary Care Provider Encounter Details Date Type Department Care Team Description 04/26/2014 Office Visit Endocrinology at [facility] Albertina Palmer, Papillary thyroid [facility] [place] [address] CENTER [phone] ENDOCRINOLOGY DEPT [place] [address] Social History Tobacco Use Types Packs/Day Years [...] on US. Rosalind Palmer Endocrine Staff Physician [facility] Rosalind Palmer MD - 04/26/2014 8:39 AM [...] P: TSH tg F/u in one yr Roslaind Palmer Endocrine Staff Physician [facility] documented in this encounter Plan of Treatment Upcoming Encounters Date Type Specialty Care Team Description 05/28/2022 Appointment Cardiology Zulma Dolan MD [facility] [address] [place], [place] [address] (Wo rk) 05/28/2022 Laboratory Appointment Lab 05/28/2022 Office Visit Cardiology Zulma Dolan MD [facility] [place] [address] Liz Poole PA [facility] [place] [address] 06/10/2022 Office Visit Dermatology Laura Scherer MD [facility] DR TEJA [address]MAT [place], [place] [address] (Wo rk) documented as of [...] Thyroglobulin <0.4 <=54.9 CERNER ng/mL [facility] Comment: Interpret with caution. Tg levels [...] BR et al. J Clin Endo Metab 1999;84:1927-8930). Assay performed using the DPC Immulite T [...] Address City/State/ZIP Code Phon e Number [address] CERNER MILLENNIUM (ABNORMAL) TSH (04/26/2014 9:07 AM EDT) P athologist Signature TSH 4.46 (H) 0.27 - 4.20 CERNER mcIU/mL MILLENNIUM Specimen Anatomical Collection Method Collection Time Receive d Time (Source) Location / / Volume Laterality Blood specimen 04/26/2014 9:07 AM 014 9:12 (specimen) EDT AM EDT Resulting Agency Comment Spec In Lab Rosalind Palmer MD CHEMISTRY ORDERABLES Performing Organization Address City/[facility]/ZIP Code Phon e Number [address] CERNER MILLENNIUM documented in this encounter Visit Diagnoses Diagnosis Papillary thyroid carcinoma Malignant neoplasm of thyroid gland documented in this encounter Care Teams Sales Broker Relationship Specialty Start Date End Date Angela Holliday APRN PCP - General 01/25/13 04/15/[address] [place] [address] documented as of this encounter
--- OUTSIDE RECORDS SUMMARY | 2022-04-08 08:57 | XMS_ITS | Encounter Summary ---
:1945 Author Organization [facility] [place] [address] Care Team Providers Name Role Phone Angela Holliday APRN Primary Care Provider Encounter Details Date Type Department Care Team Description 04/30/2014 Orders Only Endocrinology at [facility] Albertina Palmer, Thyroid cancer [facility] Jorge Boyer MD (Primary Dx) [place] [address] [facility] [phone] CENTER ENDOCRINOLOGY DEPT [place], [place] [address] Social History Tobacco Use Types [...] MD [facility] er Dr [place], [place] [address] (Wo rk) 05/28/2022 Laboratory Appointment Lab 05/28/2022 Office Visit Cardiology Zulma Dolan MD [facility] [place] [address] Liz Poole PA [facility] [place] [address] 06/10/2022 Office Visit Dermatology Laura Scherer MD [facility] ER DR TEJA [address]MAT [place], [place] [address] (Wo rk) documented as of this encounter Visit Diagnoses Diagnosis Thyroid cancer - Primary Malignant neoplasm of thyroid gland documented in this encounter Care Teams Project Manager Industrial Relationship Specialty Start Date End Date Angela Holliday APRN PCP - General 01/25/13 04/15/[address] [place] [address] documented as of this encounter
--- OUTSIDE RECORDS SUMMARY | 2022-04-08 08:57 | XMS_ITS | Encounter Summary ---
:1945 Author Organization [facility] [place] [address] Care Team Providers Name Role Phone Lovely Vicente MD Primary Care Provider Reason for Visit Reason Onset Date Comments Medication Refill 06/19/2016 Encounter Details Date Type Department Care Team Description 06/19/2016 Refill Endocrinology at [facility] Luz Stallings MD [facility] [place] [address] ENDOCRINOLOGY DEPT [phone] [place], [place] [address] (Wo rk) Social History Tobacco [...] [facility] er Dr [place] [address] (Wo rk) 05/28/2022 Laboratory Appointment Lab 05/28/2022 Office Visit Cardiology Zulma Dolan MD [facility] [place] [address] Liz Poole PA [facility] [place] [address] 06/10/2022 Office Visit Dermatology Laura Scherer MD [facility] DR [address] [place], [place] [address] (Wo rk) documented as of this encounter Visit Diagnoses Not on filedocumented in this encounter Care Teams Moose Hunter Relationship Specialty Start Date End Date Lovely Vicente MD PCP - General 04/16/[address] [place], [place] [address] documented as of this encounter
--- OUTSIDE RECORDS SUMMARY | 2022-04-08 08:57 | XMS_ITS | Encounter Summary ---
:1945 [place] [address] Care Team Providers Name Role Phone Lovely Vicente MD Primary Care Provider Reason for Visit Reason Onset Date Comments Other 12/09/2016 RESULTS Encounter Details Date Type Department Care Team Description 12/09/2016 Telephone Dermatology at [facility] Halima Cadet MD Other (RESULTS) [address] [facility] [place] [address] [facility] [phone] [place], [place] [address] (Wo rk) Social History Tobacco [...] Spoke with patient's , Kisha (personal customer success representative). I advised her Don's pathology results [...] back. She can be reached back at [phone] documented in this encounter Plan of Treatment Upcoming Encounters Date Type Specialty Care Team Description 05/28/2022 Appointment Cardiology Zulma Dolan MD [facility] [address] [place], [place] [address] (Wo rk) 05/28/2022 Laboratory Appointment Lab 05/28/2022 Office Visit Cardiology Zulma Dolan MD [facility] [place] [address] Liz Poole PA [facility] [place] [address] 06/10/2022 Office Visit Dermatology Laura Scherer MD [facility] DR [address] [place], [place] [address] (Wo rk) documented as of this encounter Visit Diagnoses Not on filedocumented in this encounter Care Teams Truck Unloader Relationship Specialty Start Date End Date Lovely Vicente MD PCP - General 04/16/[address] [place] [address] documented as of this encounter
--- OUTSIDE RECORDS SUMMARY | 2022-04-08 08:57 | XMS_ITS | Encounter Summary ---
:1945 [place] [address] Care Team Providers Name Role Phone Holley Hollidayica STACIE Primary Care Provider Encounter Details Date Type Department Care Team Description 03/28/2013 - [facility] ([facility] 03/29/2013 Barbara Gomes MD Dx) [facility] [address] [place] [address] [phone] Social History Tobacco Use Types Packs/Day Years [...] please call the General Surgery nurse at [phone], since this may mean that you need morecalcium. Follow-up Appointment: Will be scheduled with Dr. Mcknight in 6 weeks Date and time as well as any required labs will be mailed to you Please call [phone] to confirm date and time of your [...] by calcium supplementation. Phone number for questions: [phone] before 5 PM weekdays [phone] after 5 PM and on weekends/holidays Please follow up with Urology as per their recommendations for Bob removal AttachmentsThe following attachments cannot be sent through Care Everywhere. THYROIDECTOMY: WHAT TO EXPECT AT HOME (ERITREAN)URINARY CATHETER CARE: AFTER YOUR VISIT (ERITREAN)documented in this encounter Medications at Time of [...] is a 68 y.o. male presents to [facility] today for total thyroidectomy. See [...] Operative Note Patient Name: Gregory Fatima : [id number] MR#: [id number] Case Date: 03/28/2013 Surgeon: Surgeon(s) and Role: [...] patient was extubated and taken to the [facility] in stable condition. At the end ofthe case all counts were correct. Miscellaneous - Luke, Blake - 03/28/2013 2:12 PM EDT OR Attestation - Mesha cMknight MD - 03/28/2013 12:36 PM EDT Attestation: Case Date: 03/28/2013 I was present and I participated during the entire procedure (does not need to include opening and closing). MESHA MCKNIGHT MD 03/28/2013 Brief Op Note - Mesha Mcknight MD - 03/28/2013 12:35 PM EDT Brief Operative Note Patient Name: Gregory Fatima : [id number] MR#: [id number] Case Date: 03/28/2013 Surgeon: Surgeon(s) and Role: * Mesha Mcknight MD - Primary * Henrique Wlilams MD - Resident-Surgeon Chief Preoperative diagnosis: MNG [...] [facility] er Dr [place] [address] (Wo rk) 05/28/2022 Laboratory Appointment Lab 05/28/2022 Office Visit Cardiology Zulma Dolan MD [facility] [place] [address] Liz Poole PA [facility] [place] [address] 06/10/2022 Office Visit Dermatology Laura Scherer MD [facility] ER DR [address] [place] [address] (Wo rk) documented as of this encounter [...] City/State/[place] [address] CERNER MILLENNIUM (ABNORMAL) POCT [...] CARE TEST ORDERABLE S Performing Organization Address City/[facility]/ZIP [place] [address] CERNER MILLENNIUM (ABNORMAL) POCT [...] CARE TEST ORDERABLE S Performing Organization Address City/[facility]/ZIP Code Phon e Number [address] CERNER MILLENNIUM (ABNORMAL) POCT [...] CARE TEST ORDERABLE S Performing Organization Address City/[facility]/ZIP Code Phon e Number [address] CERNER MILLENNIUM (ABNORMAL) POCT [...] CARE TEST ORDERABLE S Performing Organization Address City/[facility]/ZIP Code Phon e Number [address] CERNER MILLENNIUM (ABNORMAL) POCT [...] CARE TEST ORDERABLE S Performing Organization Address City/[facility]/ZIP Code Phon e Number [address] CERNER MILLENNIUM (ABNORMAL) POCT [...] CARE TEST ORDERABLE S Performing Organization Address City/[facility]/ZIP Code Phon e Number [address] CERNER MILLENNIUM (ABNORMAL) POCT [...] CARE TEST ORDERABLE S Performing Organization Address City/[facility]/ZIP Code Phon e Number [address] [facility] Specimen to Pathology (surgical or derm) [...] Address City/[facility]/ZIP Code Phon e Number [address] [facility] Pathology Addendum Report (03/28/2013 12:03 PM EDT) Component Value Ref Test Analysis Performed At [facility] gist Range Method Time Signature Addendum CERNER Report ? [facility] ? Provider: ?? MESHA MCKNIGHT Pt. Name: ?? GREGORY FATIMA ? Acc #: ?[id number] ?Pt. MRN: ?[id number] ? Col Date: ?? 03/28/2013 ?/Sex: ?1945,(68 [...] Organization Address City/State/[place] [address] [facility] Surgical Pathology Report (03/28/2013 12:03 PM EDT) Component Value Ref Test Analysis Performed At [facility] gist Range Method Time Signature Surgical [facility] Pathology ? [facility] Report ? Provider: ?? MESHA MCKNIGHT Pt. Name: ?? GREGORY FATIMA ? Acc #: ?[id number] ?Pt. MRN: ?[id number] ? Col Date: ?? 03/28/2013 ?/Sex: ?1945,(68 [...] areas of hemorrhage and ? calcifications. ? [facility] ? Provider: ?? MESHA MCKNIGHT Pt. Name: ?? GREGORY FATIMA ? Acc #: ?[id number] ?Pt. MRN: ?[id number] ? Col Date: ?? 03/28/2013 ?/Sex: ?1945,(68 years),Male ? Rec Date: ?? 03/28/2013 ?LOC: ?[facility] ? SURGICAL PATHOLOGY ? SECTIONS/PROCESSING: Outpatient Surgery Rn sections are subm itted. (R6) ? B [...] Organization Address City/State/[place] [address] CERNER MILLENNIUM Frozen Section Report (03/28/2013 12:03 PM EDT) Component Value Ref Test Analysis Performed At [facility] gist Range Method Time Signature Frozen CERNER Section ? [facility] MILLBANNERIUM Report ? Provider: ?? MESHA MCKNIGHT Pt. Name: ?? GREGORY FATIMA ? Acc #: ?[id number] ?Pt. MRN: ?[id number] ? Col Date: ?? 03/28/2013 ?/Sex: ?1945,(68 [...] Address City/[facility]/[place] [address] CERNER MILLENNIUM POCT Glucose [...] CARE TEST ORDERABLE S Performing Organization Address City/[facility]/ZIP Code Phon e Number [address] CERNER MILLENNIUM Specimen to [...] Address City/[facility]/Z[place] [address] CERNER MILLENNIUM Antibody screen (03/28/2013 9:37 AM EDT) Analysis Performed At Patho logist Time Signature Ab Screen Negative CERNER Interp MILLENNIUM Expires at [id number] CERNER 469 on: MILLENNIUM Specimen Anatomical Collection Method Collection Time Receive d Time (Source) Location / / Volume Laterality Blood specimen 03/28/2013 9:37 AM 013 9:37 (specimen) EDT AM EDT Resulting Agency Comment Spec In Lab Mesha Mcknight MD BLOOD BANK ORDERABLES Performing Organization Address City/[facility]/Z[place] [address] [facility] GRISLEDAENNIUM ABO/Rh Typing (03/28/2013 9:37 AM EDT) athologist Signature ABORh Type O Pos [facility] MILLBANNERIUM Specimen Anatomical Collection Method Collection Time Receive d Time (Source) Location / / Volume Laterality Blood specimen 03/28/2013 9:37 AM 013 9:37 (specimen) EDT AM EDT Resulting Agency Comment Spec In Lab Mesha Mcknight MD BLOOD BANK ORDERABLES Performing Organization Address City/[facility]/ZIP Code Phon e Number [address] [facility] GRISELDABANNERIUM Differential, Automated (03/28/2013 9:34 AM EDT) athologist [...] City/State/ZIP Code Phon e Number [place] [id number] HOSPITAL [address] CERNER MILLENNIUM (ABNORMAL) Basic [...] Organization Address City/State/[place] [address] CERNER MILLENNIUM (ABNORMAL) CBC [...] MPV 9.3 9.0 - 12.0 CERNER fL [facility] Specimen Anatomical Collection Method Collection Time Receive d Time (Source) Location / / Volume Laterality Blood specimen 03/28/2013 9:34 AM 013 9:38 (specimen) EDT AM EDT Resulting Agency Comment Spec In Lab Mesha Mcknight MD HEMATOLOGY ORDERABLES Performing Organization Address City/[facility]/ZIP Code Phon e Number [address] [facility] GRISELDABANNERIUM POCT Glucose (03/28/2013 9:17 AM EDT) athologist Signature POC Glucose 108 60 - 199 CERNER mg/dL [facility] Comment: Supplemental ranges: <110 mg/dL before meals <200 mg/dL all other times of the day Specimen Anatomical Collection Method Collection Time Receive d Time (Source) Location / / Volume Laterality Blood specimen 03/28/2013 9:17 AM 013 9:17 (specimen) EDT AM EDT Mesha Mcknight MD POINT OF CARE TEST ORDERABLE S Performing Organization Address City/[facility]/ZIP Code Phon e Number [address] [facility] Specimen to Pathology (surgical or derm) (03/28/2013 8:55 AM EDT) Specimen Anatomical Collection Method Collection Time Receive d Time (Source) Location / / Volume Laterality AP Specimen 03/28/2013 8:55 AM 3 8:54 EDT AM EDT Narrative [facility] GRISELDAENNIUM - 03/28/2013 8:55 AM E DT Specimen requisition ordered. ??Separate Pathology report to follow Mesha Mcknight MD PATHOLOGY/CYTOLOGY ORDERABLE S Performing Organization Address City/[facility]/ZIP Code Phon e Number [address] [facility] documented in this encounter Visit [...] (COMPLETED) 1999 (Given - Provider: Kesha Gracia, AVMSI) 0400 (Given - Provider: Waldo covington RN) [...] override documented in this encounter Care Teams Mash Filter Press Operator Relationship Specialty Start Date End Date Angela Holliday APRN PCP - General 01/25/13 04/15/15 [address] [place] [address] documented as of this encounter
--- OUTSIDE RECORDS SUMMARY | 2022-04-08 08:57 | XMS_ITS | Encounter Summary ---
:1945 Author Organization [facility] [place] [address] Care Team Providers Name Role Phone MiyaLokeshAngela STACIE Primary Care Provider Encounter Details Date Type Department Care Team Description 04/04/2013 Orders Only General Surgery at Manny Mcknight thyroid [facility] MD Eliseo carcinoma (Primary Dx) [facility] [place] [address] GENERAL SURGERY [phone] [place], [place] [address] Social History Tobacco Use Types [...] MD [facility] er [place], [place] [address] (Wo rk) 05/28/2022 Laboratory Appointment Lab 05/28/2022 Office Visit Cardiology Zulma Dolan MD [facility] [place] [address] Liz Poole PA [facility] [place] [place] [address] 06/10/2022 Office Visit Dermatology Laura Scherer MD [facility] [address] [place], [place] [address] (Wo rk) documented as of this encounter Visit Diagnoses Diagnosis Papillary thyroid carcinoma - Primary Malignant neoplasm of thyroid gland documented in this encounter Care Teams Data Base Design Analyst Relationship Specialty Start Date End Date Angela Holliday APRN PCP - General 01/25/13 04/15/[address] [place] [address] documented as of this encounter
--- OUTSIDE RECORDS SUMMARY | 2022-04-08 08:58 | XMS_ITS | Encounter Summary ---
:1945 Author Organization [facility] Address [facility] [address] Care Team Providers Name Role Phone Unknown Primary Care Provider Unavailable Reason for Visit Reason Comments Skin Check Encounter Details Date Type Department Care Team Description 10/04/2012 Follow-Up Dermatology at Rigoberto Forman soriasis (Primary Dx); Abdelrahman HOOPER MD Neoplasm of unspecified nature of bone, soft tissue, and skin; [address] [facility] Skin lesion of chest wall; [place] [address] Seborrheic psoriasis- scalp and ingtergl uteal area [phone] [facility] [place], [place] [address] (Wo rk) Social History Tobacco [...] Dolan MD [facility] [place], [place] [address] (Wo rk) 05/28/2022 Laboratory Appointment Lab 05/28/2022 Office Visit Cardiology Zulma Dolan MD [facility] [place] [address] Liz Poole PA [facility] [place] [address] 06/10/2022 Office Visit Dermatology Laura Scherer MD [facility] DR TEJA GR-DERMAT [place], [place] [address] (Wo rk) documented [...] Test Analysis Performed At [facility] gist Range Method Time Signature Surgical CERNER Pathology ? [facility] Report ? Provider: ?? RIGOBERTO ALBARRAN III Pt. Name: ?? DON HOANG ?A ? Acc #: ?[id number] ? Pt. ? Col Date: ?? 3 [...] PATHOLOGY/CYTOLOGY ORDERABLE S Performing Organization Address City/[facility]/ZIP Code Phon e Number [address] [facility] Specimen to Pathology (NON-OR) (10/04/2012 9:55 AM EDT) Specimen Anatomical Collection Method Collection Time Receive d Time (Source) Location / / Volume Laterality AP Specimen 10/04/2012 9:55 AM 201 3 9:56 EDT AM EDT [facility]ative [facility] - 10/04/2012 9:56 AM E DT Specimen requisition ordered. ??Separate Pathology report to follow Rigoberto Albarran III, MD PATHOLOGY/CYTOLOGY ORDERABLE S Performing Organization Address City/[facility]/ZIP Code Phon e Number [address] [facility] documented in this encounter Visit Diagnoses Diagnosis Psoriasis - Primary Other psoriasis Neoplasm of unspecified nature of bone, soft tissue, and skin Skin lesion of chest wall Unspecified disorder of skin and subcuta neous tissue Seborrheic psoriasis- scalp and ingtergl uteal area Other psoriasis documented in this encounter Care Teams Biology Tutor Relationship Specialty Start Date End Date Unknown PCP - General 10/04/12 01/24/13 None documented as of this encounter
--- OUTSIDE RECORDS SUMMARY | 2022-04-08 08:58 | XMS_ITS | Encounter Summary ---
:1945 Author Organization [facility] [place] [address] Care Team Providers Name Role Phone Angela Holliday APRN Primary Care Provider Encounter Details Date Type Department Care Team Description 03/15/2013 Telephone General Surgery at [facility] Maddison Key, [place] [address] Social History Tobacco Use Types Packs/Day [...] Zulma Dolan MD [facility] [place], [place] [address] (Wo rk) 05/28/2022 Laboratory Appointment Lab 05/28/2022 Office Visit Cardiology Zulma Dolan MD [facility] [place] [address] Liz Poole PA [facility] [place] [address] 06/10/2022 Office Visit Dermatology Laura Scherer MD [facility] DR TEJA GR-DERMAT [place], [place] [address] (Wo rk) documented as of this encounter Visit Diagnoses Not on filedocumented in this encounter Care Teams Change Booth Attendant Relationship Specialty Start Date End Date Angela Holliday APRN PCP - General 01/25/13 04/15/[address] [place] [address] documented as of this encounter
--- OUTSIDE RECORDS SUMMARY | 2022-04-08 08:58 | XMS_ITS | Encounter Summary ---
:1945 Author Organization [facility] [place] [address] Care Team Providers Name Role Phone Unknown Primary Care Provider Unavailable Reason for Visit Reason Comments Other Encounter Details Date Type Department Care Team Description 10/05/2012 Telephone Dermatology at [facility] Rigoberto Garcia III, [address] [place] [address] [facility] [phone] TEJA MARIE-DERMAT [place] [address] (Wo rk) Social History Tobacco Use Types [...] Zulma Dolan MD [facility] [place], [place] [address] (Wo rk) 05/28/2022 Laboratory Appointment Lab 05/28/2022 Office Visit Cardiology Zulma Dolan MD [facility] [place] [address] Liz Poole PA [facility] [place] [address] 06/10/2022 Office Visit Dermatology Laura Scherer MD [facility] DR TEJA MARIE-DERMAT [place], [place] [address] (Wo rk) documented as of this encounter Visit Diagnoses Not on filedocumented in this encounter Care Teams Machinist Supervisor Relationship Specialty Start Date End Date Unknown PCP - General 10/04/12 01/24/13 None documented as of this encounter
--- OUTSIDE RECORDS SUMMARY | 2022-04-08 08:58 | XMS_ITS | Encounter Summary ---
:1945 Author Organization [facility] [place] [address] Care Team Providers Name Role Phone Adi Costello MD Primary Care Provider Reason for Visit Reason Comments Annual Exam ckeck his groin and melanoma follow-up Encounter Details Date Type Department Care Team Description 11/21/2010 Follow-Up Dermatology Arik Tipton Melanoma (Primary Dx) [facility] MD [place] [id number] DERMATOLOGY DEPT . 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 His only complaints are leg cramps, skin [...] changes: Arik Tipton MD Section of Dermatology [facility] documented in this encounter Plan of Treatment Upcoming Encounters Date Type Specialty Care Team Description 05/28/2022 Appointment Cardiology Zulma Dolan MD [facility] [place], [place] [address] (Wo rk) 05/28/2022 Laboratory Appointment Lab 05/28/2022 Office Visit Cardiology Zulma Dolan MD [facility] [place] [address] Liz Poole PA [facility] [place] [address] 06/10/2022 Office Visit Dermatology Laura Scherer MD [facility] DR TEJA GR-DERMAT [place], [place] [address] (Wo rk) documented as of this encounter Visit Diagnoses Diagnosis Melanoma - Primary Melanoma of skin, site unspecified documented in this encounter Care Teams Wallpaper Hanger Relationship Specialty Start Date End Date Adi Costello MD PCP - General 06/17/10 09/21/11 [address] [place] [address] documented as of this encounter
--- OUTSIDE RECORDS SUMMARY | 2022-04-08 08:58 | XMS_ITS | Encounter Summary ---
:1945 Author Organization [place] [address] Care Team Providers Name Role Phone NeilSom conner STACIE Primary Care Provider Reason for Visit Reason Comments Establish Care OBST GOITER Encounter Details Date Type Department Care Team Description 01/25/2013 Office Visit General Surgery at Manny Mcknight er colloid, toxic, [facility] MD Eliseo nodular (Primary Dx) [facility] [place], [place] GENERAL SURGERY [address] [place], [place] [address] [phone] Social History Tobacco Use Types Packs/Day Years [...] the thyroid gland were obtained using a SonoSiRedLasso MicroMaxx and an HFL38/13-6 broadband linear array [...] agrees to proceed. Will sign in through [facility]. Consent is signed. Send copy to Dr. SOM HOLLIDAY APRN and Elijah Elias MD. documented in this encounter Plan of Treatment Upcoming Encounters Date Type Specialty Care Team Description 05/28/2022 Appointment Cardiology Zulma Dolan MD [facility] [address] [place] [address] (Wo rk) 05/28/2022 Laboratory Appointment Lab 05/28/2022 Office Visit Cardiology Zulma Dolan MD [facility] [place] [address] Liz Poole PA [facility] [place] [address] 06/10/2022 Office Visit Dermatology Laura Scherer MD [facility] [address] TEJA GR-DERMAT [place], [place] 0[address] (Wo rk) documented as of [...] 406 ms MUSE SYSTEM (Bezet) Calculated P Tracy 52 degrees MUSE SYSTEM Calculated R Tracy 0 degrees MUSE SYSTEM Calculated T Tracy 40 degrees MUSE SYSTEM INTERPRETATION Normal sinus [...] storm documented in this encounter Care Teams Swing Type Lathe Operator Relationship Specialty Start Date End Date Som Holliday APRN PCP - General 01/25/13 04/15/[address] [place] [address] documented as of this encounter
--- OUTSIDE RECORDS SUMMARY | 2022-04-08 08:58 | XMS_ITS | Encounter Summary ---
:1945 [place] [address] Care Team Providers Name Role Phone MiyaLokeshAngela STACIE Primary Care Provider Encounter Details Date Type Department Care Team Description 03/28/2013 Anesthesia Event Main Operating Room Meredith Calvert MD [facility] [place] [address] [facility] Nolvia Riojas PA [facility] [place] [address] [place] [address] Anesthesia Record Procedure Summary Procedure Name [...] Zulma Dolan MD [facility] [place], [place] [address] (Wo rk) 05/28/2022 Laboratory Appointment Lab 05/28/2022 Office Visit Cardiology Zulma Dolan MD [facility] [place] [address] Liz Poole PA [facility] [place] [address] 06/10/2022 Office Visit Dermatology Laura Scherer MD [facility] DR TEJA GR-DERMAT [place], [place] [address] (Wo rk) documented as [...] Routine documented in this encounter Care Teams Mechanical Equipment Sales Engineer Relationship Specialty Start Date End Date Angela Holliday APRN PCP - General 01/25/13 04/15/[address] [place] [place] [address] documented as of this encounter
--- OUTSIDE RECORDS SUMMARY | 2022-04-08 08:58 | XMS_ITS | Encounter Summary ---
:1945 Author Organization [place] [address] Care Team Providers Name Role Phone Angela Holliday APRN Primary Care Provider Encounter Details Date Type Department Care Team Description 03/28/2013 Surgery Main Operating Room Mesha Mcknight, THYROIDECTOMY, TOTAL [facility] 15.04[facility] [address] [place]idd[place] [address] [place] [address] [phone] (Wo rk) Social History Tobacco Use Types [...] please call the General Surgery nurse at [phone], since this may mean that you need morecalcium. Follow-up Appointment: Will be scheduled with Dr. Mcknight in 6 weeks Date and time as well as any required labs will be mailed to you Please call [phone] to confirm date and time of your [...] by calcium supplementation. Phone number for questions: [phone] before 5 PM weekdays [phone] after 5 PM and on weekends/holidays Please follow up with Urology as per their recommendations for Bob removal AttachmentsThe following attachments cannot be sent through Care Everywhere. THYROIDECTOMY: WHAT TO EXPECT AT HOME ([place])URINARY CATHETER CARE: AFTER YOUR VISIT ([place])documented in this encounter Medications at Time of [...] is a 68 y.o. male presents to [facility] today for total thyroidectomy. See full Consult [...] would recommendat least 5 days with the Bbo catheter. Pt reports no urologic history in [...] MD - 03/28/2013 3:43 PM EDT [facility] Operative Note Patient Name: Gregory Fatima : [id number] MR#: [id number] Case Date: 03/28/2013 Surgeon: Surgeon(s) and Role: [...] patient was extubated and taken to the [facility] in stable condition. At the end ofthe case all counts were correct. Miscellaneous - Luke, Blake - 03/28/2013 2:12 PM EDT OR Attestation - eMsha Mcknight MD - 03/28/2013 12:36 PM EDT Attestation: Case Date: 03/28/2013 I was present and I participated during the entire procedure (does not need to include opening and closing). MESHA MCKNIGHT MD 03/28/2013 Brief Op Note - Mesha Mcknight MD - 03/28/2013 12:35 PM EDT Brief Operative Note Patient Name: Gregory Fatima : [id number] MR#: [id number] Case Date: 03/28/2013 Surgeon: Surgeon(s) and Role: [...] [facility] er [address] [place] [address] (Wo rk) 05/28/2022 Laboratory Appointment Lab 05/28/2022 Office Visit Cardiology Zulma Dolan MD [facility] [place] [address] Liz Poole PA [facility] [place] [address] 06/10/2022 Office Visit Dermatology Laura Scherer MD [facility] ER DR TEJA GR-DERMAT [place] [address] (Wo rk) documented as of this encounter [...] Organization Address City/State/[place] [address] CERNER MILLENNIUM (ABNORMAL) POCT [...] [facility]/[place] [address] CERNER MILLENNIUM (ABNORMAL) POCT [...] [facility]/ZIP Code Phon e Number [address] CERNER MILLENNIUM (ABNORMAL) POCT [...] [facility]/ZIP Code Phon e Number [address] CERNER MILLENNIUM (ABNORMAL) POCT [...] [facility]/ZIP Code Phon e Number [address] CERNER MILLENNIUM (ABNORMAL) POCT [...] [facility]/ZIP Code Phon e Number [address] CERNER MILLENNIUM (ABNORMAL) POCT [...] [facility]/ZIP Code Phon e Number [address] CERNER MILLENNIUM (ABNORMAL) POCT [...] [facility]/ZIP Code Phon e Number [address] [facility] [...] PATHOLOGY/CYTOLOGY ORDERABLE S Performing Organization Address City/[facility]/ZIP Code Phon e Number [address] [facility] Pathology Addendum Report (03/28/2013 12:03 PM EDT) Component Value Ref Test Analysis Performed At [facility] gist Range Method Time Signature Addendum CERNER Report ? [facility] ? Provider: ?? MESHA MCKNIGHT Pt. Name: ?? GREGORY FATIMA ? Acc #: ?[id number] ?Pt. MRN: ?[id number] ? Col Date: ?? 03/28/2013 ?/Sex: ?1945,(68 [...] Organization Address City/State/[place] [address] [facility] Surgical Pathology Report (03/28/2013 12:03 PM EDT) Component Value Ref Test Analysis Performed At [facility] gist Range Method Time Signature Surgical [facility] Pathology ? [facility] Report ? Provider: ?? MESHA MCKNIGHT Pt. Name: ?? GREGORY FATIMA ? Acc #: ?[id number] ?Pt. MRN: ?[id number] ? Col Date: ?? 03/28/2013 ?/Sex: ?1945,(68 [...] areas of hemorrhage and ? calcifications. ? [facility] ? Provider: ?? MESHA MCKNIGHT Pt. Name: ?? GREGORY FATIMA ? Acc #: ?[id number] ?Pt. MRN: ?[id number] ? Col Date: ?? 03/28/2013 ?/Sex: ?1945,(68 years),Male ? Rec Date: ?? 03/28/2013 ?LOC: ?[facility] ? SURGICAL PATHOLOGY ? SECTIONS/PROCESSING: Technical Services Rep sections are subm itted. (R6) ? B [...] Organization Address City/State/[place] [address] CERNER MILLENNIUM Frozen Section Report (03/28/2013 12:03 PM EDT) Component Value Ref Test Analysis Performed At [facility] gist Range Method Time Signature Frozen CERNER Section ? [facility] Report ? Provider: ?? MESHA MCKNIGHT Pt. Name: ?? GREGORY FATIMA ? Acc #: ?[id number] ?Pt. MRN: ?[id number] ? Col Date: ?? 03/28/2013 ?/Sex: ?1945,(68 [...] PATHOLOGY/CYTOLOGY ORDERABLE S Performing Organization Address City/[facility]/[place] [address] CERNER MILLENNIUM POCT Glucose [...] [facility]/ZIP Code Phon e Number [address] CERNER MILLENNIUM Specimen to [...] PATHOLOGY/CYTOLOGY ORDERABLE S Performing Organization Address City/[facility]/[place] [address] CERNER MILLENNIUM Antibody screen (03/28/2013 9:37 AM EDT) Analysis Performed At Patho logist Time Signature Ab Screen Negative CERNER Interp MILLENNIUM Expires at [id number] CERNER 755 on: MILLENNIUM Specimen Anatomical Collection Method Collection Time Receive d Time (Source) Location / / Volume Laterality Blood specimen 03/28/2013 9:37 AM 013 9:37 (specimen) EDT AM EDT Resulting Agency Comment Spec In Lab Mesha Mcknight MD BLOOD BANK ORDERABLES Performing Organization Address City/[facility]/[place] [address] [facility] GRISELDAENNIUM ABO/Rh Typing (03/28/2013 9:37 AM EDT) athologist Signature ABORh Type O Pos [facility] Specimen Anatomical Collection Method Collection Time Receive d Time (Source) Location / / Volume Laterality Blood specimen 03/28/2013 9:37 AM 013 9:37 (specimen) EDT AM EDT Resulting Agency Comment Spec In Lab Mesha Mcknight MD BLOOD BANK ORDERABLES Performing Organization Address City/[facility]/ZIP Code Phon e Number [address] [facility] GRISELDAHU [facility] Differential, Automated (03/28/2013 9:34 AM [...] Organization Address City/State/ZIP Code Phon e Number [place] [id number] HOSPITAL [address] CERNER MILLENNIUM (ABNORMAL) Basic [...] supplied above were not validated at [facility]. Results from pediatri c [...] Organization Address City/State/[place] [address] CERNER MILLENNIUM (ABNORMAL) CBC [...] 9.0 - 12.0 CERNER fL [facility] Specimen Anatomical Collection Method Collection Time Receive d Time (Source) Location / / Volume Laterality Blood specimen 03/28/2013 9:34 AM 013 9:38 (specimen) EDT AM EDT Resulting Agency Comment Spec In Lab Mesha Mcknight MD HEMATOLOGY ORDERABLES Performing Organization Address City/[facility]/ZIP Code Phon e Number [address] RAKESH VILLALOBOSHU HU [facility] POCT Glucose (03/28/2013 9:17 AM EDT) athologist Signature POC Glucose 108 60 - 199 CERNER mg/dL [facility] Comment: Supplemental ranges: <110 mg/dL before meals <200 mg/dL all other times of the day Specimen Anatomical Collection Method Collection Time Receive d Time (Source) Location / / Volume Laterality Blood specimen 03/28/2013 9:17 AM 013 9:17 (specimen) EDT AM EDT Mesha Mcknight MD POINT OF CARE TEST ORDERABLE S Performing Organization Address City/[facility]/ZIP Code Phon e Number [address] [facility] Specimen to Pathology (surgical or derm) (03/28/2013 8:55 AM EDT) Specimen Anatomical Collection Method Collection Time Receive d Time (Source) Location / / Volume Laterality AP Specimen 03/28/2013 8:55 AM 3 8:54 EDT AM EDT Narrative [facility] GRISELDA[facility]UM - 03/28/2013 8:55 AM E DT Specimen requisition ordered. ??Separate Pathology report to follow Mesha Mcknight MD PATHOLOGY/CYTOLOGY ORDERABLE S Performing Organization Address City/[facility]/ZIP Code Phon e Number [address] RAKESH WALKER documented in [...] - Provider: Radha Yao [facility], [facility]) 2.5 mg, Oral, DAILY, First [...] override documented in this encounter Care Teams Mycology Teacher Relationship Specialty Start Date End Date Angela Holliday APRN PCP - General 01/25/13 04/15/15 [address] [place] [address] documented as of this encounter
--- OUTSIDE RECORDS SUMMARY | 2022-04-08 08:58 | XMS_ITS | Encounter Summary ---
:1945 Author Organization [facility] [place] [address] Care Team Providers Name Role Phone Brody Berrios MD Primary Care Provider Reason for Visit Reason Comments Annual Exam Encounter Details Date Type Department Care Team Description 09/22/2011 Follow-Up Dermatology Arik Tipton Psoriasis (Primary Dx); [facility] MD Jorge Personal history of other malignant neop lasm of skin Drive [place] [phone] DERMATOLOGY DEPT . [place] [address] (Wo rk) Social History Tobacco Use Types [...] changes: Arik Tipton MD Section of Dermatology [facility] documented in this encounter Plan of Treatment Upcoming Encounters Date Type Specialty Care Team Description 05/28/2022 Appointment Cardiology Zulma Dolan MD [facility] [address] [place], [place] [address] (Wo rk) 05/28/2022 Laboratory Appointment Lab 05/28/2022 Office Visit Cardiology Zulma Dolan MD [facility] [place] [address] Liz Poole PA [facility] [place] [address] 06/10/2022 Office Visit Dermatology Laura Scherer MD [facility] [address]-DERMAT [place], [place] [address] (Wo rk) documented as of this encounter Visit Diagnoses Diagnosis Psoriasis - Primary Other psoriasis Personal history of other malignant neop lasm of skin documented in this encounter Care Teams Command And Control Specialist Relationship Specialty Start Date End Date Brody Berrios MD PCP - General 09/22/11 10/03/[address] [place] [address] documented as of this encounter
--- OUTSIDE RECORDS SUMMARY | 2022-04-08 08:58 | XMS_ITS | Encounter Summary ---
:1945 Author Organization [facility] [place] [address] Care Team Providers Name Role Phone Angela Holliday APRN Primary Care Provider Encounter Details Date Type Department Care Team Description 01/25/2013 Clinical [place] [address] Social History Tobacco Use Types Packs/Day [...] Specialty Care Team Description 05/28/2022 Appointment Cardiology Zumla Dolan MD [facility] [address] [place], [place] [address] (Wo rk) 05/28/2022 Laboratory Appointment Lab 05/28/2022 Office Visit Cardiology Zulma Dolan [place] [address] Liz Poole PA [facility] [place] [address] 06/10/2022 Office Visit Dermatology Laura Scherer MD [facility] [address] TE[address] GR-DERMAT [place], [place] [address] (Wo rk) documented as of this encounter Visit Diagnoses Not on filedocumented in this encounter Care Teams Technical Services Rep Relationship Specialty Start Date End Date Angela Holliday APRN PCP - General 01/25/13 04/15/[address] [place] [address] documented as of this encounter
--- OUTSIDE RECORDS SUMMARY | 2022-04-08 08:59 | XMS_ITS | Encounter Summary ---
:1945 Author Organization [facility] Address [address] [place] [address] Care Team Providers Name Role Phone Lovely Vicente MD Primary Care Provider Encounter Details Date Type Department Care Team Description 01/28/2022 Lab Requisition [facility] Outr Resulting Lab, Pathology & Laboratory Provider [facility] [address] [place] [address] Social History Tobacco Use Types Packs/Day Years Used Date Never Assessed Sex Assigned at Date Recorded Not on file documented as of this encounter Plan of Treatment Not on filedocumented as of this encounter Procedures Procedure Name Priority Date/Time Associated Diagnosis Comme nts COVID-19 TEST [facility] Today 01/27/2022 14:30 LAB PCR EDT COVID-19 TESTING Routine 01/27/2022 14:30 Results for this EDT procedure are i n the results section. documented in this encounter Results COVID-19 TEST [facility] LAB PCR (01/27/2022 14:30 EDT) Specimen Swab Performing Organization Address City/State/ZIP Code Phon e Number [facility] [address] [place] [address] SERVICES COVID-19 TESTING (01/27/2022 14:30 EDT) COVID-19 rt-PCR Negative Negative [facility] MEDICAL Result Comment: CENTER [...] informatio n. Testing was performed using the meltion SARS-CoV-2 assay ([employer] on the Meliton 6800 System Performing Lab Meliton 6800 [facility] Lab [facility] SERVICES Specimen Swab Performing Organization Address City/State/ZIP Code Phon e Number [facility] [address] [place] [address] SERVICES documented in this encounter Visit Diagnoses Not on filedocumented in this encounter Care Teams General Distillery Worker Relationship Specialty Start Date End Date Lovely Vicente MD PCP - General 07/13/14 documented as of this encounter
--- OUTSIDE RECORDS SUMMARY | 2022-04-08 08:59 | XMS_ITS | Encounter Summary ---
:1945 Author Organization [facility] Address [address] [place] [address] Care Team Providers Name Role Phone Lovely Vicente MD Primary Care Provider Encounter Details Date Type Department Care Team Description 04/04/2021 Lab Requisition [facility] Outr Resulting Lab, Pathology & Laboratory Provider [facility] [address] [place] [address] Social History Tobacco Use Types Packs/Day Years [...] Negative Negative [facility] SERVICES Shigella/Enteroinvasive Negative Negative [facility] HN LAB CAMPYLOBACTER PCR Negative Negative [facility] LABORATORY SERVICES Shiga Toxin PCR Negative Negative [facility] LABORATORY SERVICES Specimen Feces - Specimen from rectum (specimen) Performing Organization Address City/State/ZIP Code Phon e Number [facility] [address] [place] [address] SERVICES documented in this encounter Visit Diagnoses Not on filedocumented in this encounter Care Teams Acid Tank Liner Relationship Specialty Start Date End Date Lovely Vicente MD PCP - General 07/13/14 documented as of this encounter
--- OUTSIDE RECORDS SUMMARY | 2022-04-08 08:59 | XMS_ITS | Encounter Summary ---
:1945 Author Organization [facility] Address [address] [place] [address] Care Team Providers Name Role Phone Lovely Vicente MD Primary Care Provider Encounter Details Date Type Department Care Team Description 02/20/2022 Lab Requisition [facility] Outr Resulting Lab, Pathology & Laboratory Provider General acute hospital [address] [place] [address] Social History Tobacco Use Types Packs/Day Years [...] nature PSA 2.7 <=6.5 ng/mL [facility] LABORATOR Y SERVICES Specimen Blood - Venous blood (substance) Narrative [facility] LABORATORY SERVICES - 02/20/2022 18:17 EDT NOTE: Serum PSA concentration should not be in terpreted as absolute evidence for the presence or absence of malignant disease. Assayed on Siemens ADVIA Centaur XPT usi ng chemiluminescent technology.??Values obtained by using different assay methods cannot be used interchangeably. Performing Organization Address City/State/ZIP Code Phon e Number [facility] [address] [place] [address] SERVICES documented in this encounter Visit Diagnoses Not on filedocumented in this encounter Care Teams Manager Studio Relationship Specialty Start Date End Date Lovely Vicente MD PCP - General 07/13/14 documented as of this encounter
--- OUTSIDE RECORDS SUMMARY | 2022-04-08 08:59 | XMS_ITS | Clinical Summary ---
:1945 Author Organization [facility] Address [address] [place] [address] Care Team Providers Name Role Phone [...] i n the results section. COVID-19 TEST [facility] Today 01/27/2022 14:30 LAB PCR EDT COVID-19 TESTING Routine 01/27/2022 14:30 Results for this EDT procedure are i n the results section. from Last 3 Months Results PSA TOTAL, DIAGNOSTIC (02/20/2022 9:04 EDT) Pathologist Sig nature PSA 2.7 <=6.5 ng/mL [facility] LABORATOR Y SERVICES Specimen Blood - Venous blood (substance) Narrative [facility] LABORATORY SERVICES - 02/20/2022 18:17 EDT NOTE: Serum PSA concentration should not be in terpreted as absolute evidence for the presence or absence of malignant disease. Assayed on Siem[employer] Centaur XPT usi ng chemiluminescent technology.??Values obtained by using different assay methods cannot be used interchangeably. Performing Organization Address City/State/ZIP Code Phon e Number [facility] [address] [place] [address] SERVICES COVID-19 TEST [facility] LAB PCR (01/27/2022 14:30 EDT) Specimen Swab Performing Organization Address City/[facility]/ZIP Code Phon e Number [facility] [address] [place] [address] SERVICES COVID-19 TESTING (01/27/2022 14:30 EDT) COVID-19 [...] performed using the meliton SARS-CoV-2 assay ([employer] on the Meliton 6800 System Performing Lab Meliton 6800 [facility] Lab [facility] LABORATORY SERVICES Specimen Swab Performing Organization Address City/[facility]/ZIP Code Phon e Number [facility] [address] [place] [address] SERVICES from Last 3 Months Care Teams Safety Clothing And Equipment Developer Relationship Specialty Start Date End Date Lovely Vicente MD PCP - General 07/13/14
--- OUTSIDE RECORDS SUMMARY | 2022-04-08 09:00 | XMS_ITS | Encounter Summary ---
:1945 Author Organization [facility] Address [address] [place] [address] Care Team Providers Name Role Phone Lovely Vicente MD Primary Care Provider Encounter Details Date Type Department Care Team Description 01/01/2020 Lab Requisition [facility] Outr Resulting Lab, Pathology & Laboratory Provider [facility] [address] [place] [address] Social History Tobacco Use Types Packs/Day Years [...] 2.1 0.0 - 6.5 ng/mL [facility] LABORA TORY SERVICES Specimen Blood - Venous blood (substance) Narrative [facility] SERVICES - 01/02/2020 10:40 EDT NOTE: Serum PSA concentration should not be in terpreted as absolute evidence for the presence or absence of malignant disease. Assayed on Siemens ADVIA Centaur XPT usi ng chemiluminescent technology.??Values obtained by using different assay methods cannot be used interchangeably. Performing Organization Address City/State/ZIP Code Phon e Number [facility] [address] [place] [address] SERVICES documented in this encounter Visit Diagnoses Not on filedocumented in this encounter Care Teams Multiple Tube Winding Machine Operator Relationship Specialty Start Date End Date Lovely Vicente MD PCP - General 07/13/14 documented as of this encounter
--- OUTSIDE RECORDS SUMMARY | 2022-04-08 09:00 | XMS_ITS ---
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 Problem Critical ischemia I99.8 Active of lower extremity Problem Atherosclerosis I70.90 Active 3871 6007 Problem Type 2 diabetes E11.628 Active mellitus with other skin complications Problem 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 40 ; Acquired deformi ty of right foot M21.961 ; L luis term current use of i nsulin Z79.4 ; History of art erial bypass of lower extremi ty Z95.828 ; Atherosclerosis I70.90 and History of Lisfr anc amputation of fo ot Z89.439 [address] Feb, Type 2 diabet es mellitus [address] [place] with diabe [place]ic neuropathy, [address] unspecified E11. 40 ; Acquired deformi ty of right foot M21.961 ; L luis term current use of i nsulin Z79.4 ; History of art erial bypass of lower extremi ty Z95.828 ; Atherosclerosis I70.90 and History of Lisfr anc amputation of fo ot Z89.439 [facility] November, [place] [address] [facility] [facility] November, Type 2 [place]ete [place] [address] with diabeti c neuropathy, unspecified E11. 40 ; Acquired deformi ty of right foot M21.961 ; L luis term current use of i nsulin Z79.4 ; History of art erial bypass of lower extremi ty Z95.828 ; Atherosclerosis I70.90 and History of Lisfr anc amputation of fo ot Z89.439 [facility] 10 Aug, 2019 Type 2 [place] [address] with other skin complications E1 1.628 ; Tinea pedis of l eft foot B35.3 ; Type 2 d iabetes mellitus with di abetic neuropathy, unsp ecified E11.40 ; Acquire d deformity of right foot M2 1.961 ; longterm current use of insulin Z79.4 ; History of arterial bypass of lower extremity Z95.828 and Athe rosclerosis I70.90 [facility] Jun, [place] [address] [address] Jun, [place] [address] [address] Jun, Type 2 diabet es mellitus [place], [place] with other skin [address] complications E1 1.628 ; Acquired deformi ty of right foot M21.961 ; T ype 2 diabetes mellitu s with diabetic neuropa thy, unspecified E11. 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 40 ; longterm current use of insulin Z79.4 and Histor y of arterial bypass of lower extremity Z95.82 8 [facility] November, Tinea pedis o f left foot [place], [place] B35.3 ; Ty pe 2 diabetes [address] mellitus with ot her skin complications E1 1.628 ; Acquired deformi ty of right foot M21.961 ; T ype 2 diabetes mellitu s with diabetic neuropa thy, unspecified E11. 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 40 ; Acquired deformi ty of right foot M21.961 ; P eripheral arterial disease I73.9 ; History of arter ial bypass of lower extremi ty Z95.828 ; longterm curren t use of insulin Z79.4 an d History of Lisfranc amputat ion of foot Z89.439 UNKNOWN Jul, [facility] 11 Jun, 2018 Type 2 [place]ete [place] [address] with diabeti c neuropathy, unspecified E11. [address] Apr, Edema of both legs R60.0 ; [place], [place] Acquired d eformity of right [address] foot M21.961 ; P eripheral arterial disease I73.9 ; History of arter ial bypass of lower extremi ty Z95.828 ; petroleum terminal plant operator curren t use of insulin Z79.4 an d Type 2 diabetes mellitu s with diabetic neuropa thy, unspecified E11. 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 40 [facility] Feb, Edema of both legs R60.0 ; [place] [address] Ulcer of lef t calf, limited to breakdown of skin L97.221 ; Acquired defor mity of right foot M21.9 61 ; Peripheral arter ial disease I73.9 ; History of arterial bypass of lower extremity Z95.828 ; Long t erm current use of insulin Z 79.4 and Type 2 diabetes mellitus with diabetic ne uropathy, unspecified E11. 40 [facility] 1 Feb, [place] [address] [facility] Feb, Edema of both legs R60.0 ; [place] [address] Ulcer of rig ht calf, limited to [...] [address] [facility] Feb, [place] [address] [facility] [address] [facility] [address] Feb, [place] [address] [facility] [address] [facility] [address] Jan, [place] [address] [facility] [address] [facility] [address] Jan, [place] [address] [facility] [address] [facility] [address] Jan, [place] [address] [facility] [address] Jan, [place] [address] [facility] [address] [facility] Jan, [place] [address] [facility] [address] [facility] Dec, [place] [address] [facility] [address] Dec, [place] [address] [facility] [address] [facility] [address] Dec, [place] [address] [facility] [address] [facility] [address] Dec, [place] [address] [facility] Dec, [place] [address] [facility] [address] [facility] [address] Dec, [place] [address] [facility] November, [place] [address] [facility] November, [place] [address] [facility] November, [place] [address] [facility] November, [place] [address] [facility] November, [place] [address] [facility] November, [place] [address] UNKNOWN November, [facility] [address] November, [place] [address] [facility] November, [place] [address] [facility] Oct, [place] [address] [facility] Oct, [place] [address] [facility] Oct, [place] [address] [facility] [address] 18 Oct, 2017 [place] [address] [facility] 16 Oct, 2017 [place] [address] [facility] [address] 16 Oct, 2017 [facility] [address] [facility] Oct, [place] [address] [facility] Oct, [place] [address] [facility] Oct, [place] [address] [facility] [address] Sep, [facility] [address] [facility] Sep, [place] [address] [facility] [address] [place] Sep, [place] [address] [facility] [address] Sep, [place] [address] [facility] [address] Sep, [place] [address] [facility] [address] Sep, Critical ischemi a of lower [place] [address] extremity I 99.8 ; Local infection of the skin and subcutaneous tis lindsey, unspecified L08. 9 and Type 2 diabetes mellitu s with other skin complicatio ns E11.628 [facility] Sep, [place] [address] [facility] [address] [facility] [address] Sep, [place] [address] [facility] [address] [facility] [address] Sep, [place] [address] [facility] [address] [facility] 14 Sep, [address] [place] [address] [facility] Sep, [place] [address] [facility] Sep, [place] [address] [facility] Sep, [place] [address] [facility] Sep, [place] [address] [facility] [address] [facility] [address] Aug, [place] [address] [facility] [address] [place] Aug, [facility] [address] [facility] [address] Aug, [place] [address] SURGERY [facility] Aug, [place] [address] SURGERY [address] [facility] Aug, [place] [address] [facility] Aug, [place] [address] ORTHOPEDIC OFFICE [address] [facility] Aug, Pre-op exam Z01.818 [place] [address] [facility] Aug, [place] [address] [facility] Aug, [place] [address] [facility] Aug, [place] [address] IMMUNIZATIONS No Known Immunizations SOCIAL HISTORY Qualifiers [...] subcutaneously 22 24h Active units/mL daily Pen [place] Active Ciclopirox Externally Twice 1 application 12h [...] For Report MR Lower Ext R w/o ([id number]) 2017-09-16 See Below For Report CR C-ARM [...] A1c 03/04/18 - 6.7, [facility] annually, f/u - bilateral leg edema, Pt [...] at wound center,lab work done 03/07/2018 @ [facility], Patient came in with tubigrip bilateral , wound clin est, wound clinest, Wound CTR-follow up, Wound CTR-follow up, Wound CTR-follow up, Peer to Peer w/ Dr. Espino, Wound CTR-follow up, Wound CTR-follow up, Casino Accountant Documentation, LAB, Wound CTR-follow up, Wound CTR-follow up, Wound CTR-follow up, Wound CTR-follow up, LAB, LAB, Wound CTR- follow up, Wound CTR-follow up, Wound CTR-follow up, Casino Accountant Documentation, [facility], Wound CTR-follow up, Wound CTR-follow up, Pull PICC Line, Wound CTR-follow up, Wound CTR-follow up, LAB, Still taking doxycycline 100mg? , Wound CTR-follow up, Wound CTR-follow up, Wound CTR-follow up, Casino Accountant Documentation, Wound CTR-follow up, Wound CTR-follow up, Call back, Casino Accountant Documentation, Casino Accountant Documentation, Casino Accountant Documentation, Wound CTR-follow up, WCC, Wound CTR-follow up, Wound CTR-follow up, labs, D/C planning, bailey smetatarsal amputation of right foot, LAB, LAB, Wound CTR-NEW Insurance Providers [facility] Health Member Patient Patient Patient Patient Patient Subscriber Subscriber Subscriber Group Insurance Plan Plan Plan Plan ID Relationship Address Phone Name Date of ID Name Date of No Type Insurance Insurance Insurance Coverage to Subscriber Address Phone Name Dates MEDICARE [address] MEDICARE self [place] [id number] [facility] [id number] S-BLUE [phone] S-BLUE [place] [id number] [address] [place] [address] [place] [address] SELF PAY self [place] [id number] AFTER BLUE [place] AFTER BLUE [facility] [id number] [place] OTHER [address] [place] [phone] OTHER [place] [id number] [place] 1^MAIN [facility] PAYOR [id number]
--- OUTSIDE RECORDS SUMMARY | 2022-04-08 09:00 | XMS_ITS | Encounter Summary ---
:1945 Author Organization [facility] Address [address] [place] [address] Care Team Providers Name Role Phone Unavailable Primary Care Provider Unavailable Encounter Details Date Type Department Care Team Description 03/05/2014 Hospital Encounter [facility]- [place] Unknown, Provider, [facility] 0 [facility] [phone] [place] [address] (Work) [phone] Social History Tobacco Use Types Packs/Day Years Used Date Never Assessed Sex Assigned at Date Recorded Not on file documented as of this encounter Discharge Disposition Disposition Code Departure Means Destination Home or Self Retirement documented in this encounter Plan of Treatment Not on filedocumented as of this encounter Visit Diagnoses Not on filedocumented in this encounter
--- OUTSIDE RECORDS SUMMARY | 2022-04-08 09:00 | XMS_ITS | Encounter Summary ---
:1945 Author Organization [facility] Address [address] [place] [address] Care Team Providers Name Role Phone Unknown, Provider Primary Care Provider Encounter Details Date Type Department Care Team Description 07/11/[address] [facility]- [place] Unknown, Provider, [facility] [address] [place] [address] [place] [address] (Work) [phone] Social History Tobacco Use Types Packs/Day Years Used Date Never Assessed Sex Assigned at Date Recorded Not on file documented as of this encounter Discharge Disposition Disposition Code Departure Means Destination Home or Self Retirement documented in this encounter Plan of Treatment Not on filedocumented as of this encounter Visit Diagnoses Not on filedocumented in this encounter Care Teams Care Transition Mgr Relationship Specialty Start Date End Date Unknown, Provider, PCP - General 03/07/14 07/12/14 documented as of this encounter
--- OUTSIDE RECORDS SUMMARY | 2022-04-08 09:00 | XMS_ITS | Encounter Summary ---
:1945 Author Organization [facility] Address [address] [place] [address] Care Team Providers Name Role Phone Unknown, Provider Primary Care Provider Encounter Details Date Type Department Care Team Description 03/05/2014 Results Only [facility] Eris Taylor MD Laboratory Services - [address] [place] [address] [place] [address] [phone] Social History Tobacco Use Types Packs/Day Years [...] ? DON HOANG ? Accession #: ? [id number] ? : ? 1945 (Age: 68) ??M [...] S, L) and EGJ ar e two crodova-white tissues (0.2 x 0.1 x 0.1 cm and 0.2 x 0.2 x 0.1 cm). Entirely submitted in C1Madiha Ordonez 03/07/2014 12:31 PM End of Report Specimen Performing Organization Address City/State/ZIP Code Phon e Number [facility] [address] [place] [address] SERVICES [facility] [address] [place] [address] documented in this encounter Visit Diagnoses Not on filedocumented in this encounter Care Teams Special Tester Relationship Specialty Start Date End Date Unknown, Provider, PCP - General 03/07/14 07/12/14 documented as of this encounter
--- OUTSIDE RECORDS SUMMARY | 2022-04-08 09:00 | XMS_ITS | Encounter Summary ---
:1945 Author Organization [facility] Address [address] [place] [address] Care Team Providers Name Role Phone Lovely Vicente MD Primary Care Provider Encounter Details Date Type Department Care Team Description 08/11/2019 Lab Requisition [facility] Unknown, Provider, Pathology & Laboratory [facility] [address] [place] [address] Social History Tobacco Use Types Packs/Day Years [...] (08/11/2019 14:35 EST) Giardia and Cryptosporidium Cryptosporidium [facility] Cryptosporidium Antigen Neg and Antigen Neg and CENTER Giardia Antigen Neg Giardia Antigen Neg LABORATORY SERVICES Specimen Feces - Specimen from rectum (specimen) Performing Organization Address City/State/ZIP Code Phon e Number [facility]OR[facility] [address] [place] [address] SERVICES documented in this encounter Visit Diagnoses Not on filedocumented in this encounter Care Teams Bill Clerk Relationship Specialty Start Date End Date Lovely Vicente MD PCP - General 07/13/14 documented as of this encounter
--- OUTSIDE RECORDS SUMMARY | 2022-04-08 09:00 | XMS_ITS | Encounter Summary ---
:1945 Author Organization [facility] Address [address] [place] [address] Care Team Providers Name Role Phone Lovely Vicente MD Primary Care Provider Encounter Details Date Type Department Care Team Description 01/17/2021 Lab Requisition [facility] Outr Resulting Lab, Pathology & Laboratory Provider [facility] [address] [place] [address] Social History Tobacco Use Types Packs/Day Years [...] nature PSA 2.9 0.0 - 6.5 ng/mL [facility] LABORA TORY SERVICES Specimen Blood - Venous blood (substance) Narrative [facility] LABORATORY SERVICES - 01/17/2021 17:46 EDT NOTE: Serum PSA concentration should not be in terpreted as absolute evidence for the presence or absence of malignant disease. Assayed on Siemens ADVIA Centaur XPT usi ng chemiluminescent technology.??Values obtained by using different assay methods cannot be used interchangeably. Performing Organization Address City/State/ZIP Code Phon e Number [facility] [address] [place] [address] SERVICES documented in this encounter Visit Diagnoses Not on filedocumented in this encounter Care Teams Centerless Grinder Operator Relationship Specialty Start Date End Date Lovely Vicente MD PCP - General 07/13/14 documented as of this encounter
--- OUTSIDE RECORDS SUMMARY | 2022-04-08 09:00 | XMS_ITS | Encounter Summary ---
:1945 Author Organization [facility] Address [address] [place] [address] Care Team Providers Name Role Phone Unknown, Provider Primary Care Provider Encounter Details Date Type Department Care Team Description 07/11/2014 Results Only [facility] Shruthi Horowitz MD Laboratory Services - [address] [place] [address] [place] [address] 0 [facility] [place] [address] [phone] Social History Tobacco Use Types Packs/Day Years Used Date Never Assessed Sex Assigned at Date Recorded Not on file documented as of this encounter Plan of Treatment Not on filedocumented as of this encounter Procedures Procedure Name Priority Date/Time Associated Diagnosis Comme [facility] SURGICAL PATHOLOGY Routine 07/11/2014 8:55 EST Re sults for this procedure are i n the results section. documented in this encounter Results SURGICAL PATHOLOGY (07/11/2014 8:55 EST) Pathology Report: SURGICAL PATHOLOGY REPORT [facility] Reports generated via electronic interface contain sorin ginal data; LABORATORY however they are lacking the format of the original re port. SERVICES Caution should be taken when reading/interpreting unfo rmatted reports. Name: ? DON HOANG ? Accession #: ? [id number] ? : ? 1945 (Age: 69) ??M [...] 6.5 x 3.0 cm in aggreg ate). Epic Kaleidoscope Analyst sections are submitted in 1- 10 (approximately 40% of the specimen is submitted). Viry Nunez 07/12/2014 11:21 AM End of Report Specimen Performing Organization Address City/State/ZIP Code Phon e Number [facility] [address] [place] [address] SERVICES documented in this encounter Visit Diagnoses Not on filedocumented in this encounter Care Teams Cat Sitter Relationship Specialty Start Date End Date Unknown, Provider, PCP - General 03/07/14 07/12/14 documented as of this encounter
--- OUTSIDE RECORDS SUMMARY | 2022-04-10 08:54 | XMS_ITS | Encounter Summary ---
:1945 Author Organization [facility] Address [facility] [place] [address] Care Team Providers Name Role Phone Lovely Vicente MD Primary Care Provider Reason for Visit Reason Onset Date Comments Medication Refill 03/06/2022 Metoprolol Succinate Encounter Details Date Type Department Care Team Description 03/06/2022 Refill Cardiology at [facility] Liz Poole PA Medication Refill [facility] (Ks toprolol Succinate) [place] [address] Cardiology Dept [phone] [place], [place] [address] (Wo rk) Social History Tobacco [...] MD [facility] er [address] [place], [place] [address] (Wo rk) 05/28/2022 Laboratory Appointment Lab 05/28/2022 Office Visit Cardiology Zulma Dolan MD [facility] [place] [address] Liz Poole PA [facility] [place] [address] 06/10/2022 Office Visit Dermatology Laura Scherer MD [facility] ER DR [address] [place], [place] [address] (Wo rk) documented as of this encounter Visit Diagnoses Diagnosis Chronic systolic heart failure Cardiomyopathy, ischemic Other specified forms of chronic ischemi c heart disease documented in this encounter Care Teams Drum Sander Relationship Specialty Start Date End Date Lovely Vicente MD PCP - General 04/16/[address] [place] [address] documented as of this encounter
--- OUTSIDE RECORDS SUMMARY | 2022-04-10 08:54 | XMS_ITS | Encounter Summary ---
:1945 [place] [address] Care Team Providers Name Role Phone Lovely Vicente MD Primary Care Provider Reason for Visit Reason Onset Date Comments Follow-up 02/26/2022 Entresto start Encounter Details Date Type Department Care Team Description 02/26/2022 Telephone Cardiology at [facility] Martha Comer, Follow-up ([facility] RN start) [place] [address] Social History Tobacco Use Types Packs/Day [...] on 03/05/22 Getting labs done at : [facility] Order e-faxed by STEPHANIE Poole on 02/24/22. /pt to call on 03/05/22 letting us know to get the BMP results from [facility]. Nursing to get results and contact pt to see how he is tolerating the Entresto. They are to call sooner with any questions/concerns. documented in this encounter Plan of Treatment Upcoming Encounters Date Type Specialty Care Team Description 05/28/2022 Appointment Cardiology Zulma Dolan MD [facility] [place], [place] [address] (Wo rk) 05/28/2022 Laboratory Appointment Lab 05/28/2022 Office Visit Cardiology Zulma Dolan MD [facility] [place] [address] Liz Poole PA [facility] [place] [address] 06/10/2022 Office Visit Dermatology Laura Scherer MD [facility] [address] [place], [place] [address] (Wo rk) documented as of this encounter Visit Diagnoses Not on filedocumented in this encounter Care Teams E Commerce Marketing Manager Relationship Specialty Start Date End Date Lovely Vicente MD PCP - General 04/16/[address] [place] [address] documented as of this encounter
--- OUTSIDE RECORDS SUMMARY | 2022-04-10 08:54 | XMS_ITS | Encounter Summary ---
:1945 Author Organization [facility] [place] [address] Care Team Providers Name Role Phone Lovely Vicente MD Primary Care Provider Encounter Details Date Type Department Care Team Description 03/26/2022 Office Visit Cardiology at [facility] Vitaliy Nobles MD Chronic systolic heart failure; [facility] ONE MEDICAL ASCVD (ar teriosclerotic cardiovascular disease); [facility] Cardiomyopathy, ischemic [place], [place] CARDIOLOGY [address] [place] [address] [phone] Social History Tobacco Use Types Packs/Day Years [...] from the original note were not included. [facility] [place] [address] CARDIOLOGY OUTPATIENT CLINIC VISIT [facility] Don Mccollum Kushal 03/26/2022 Referring Providers: MD Jules Cr Joyce, MD [address] [place] [address] CHIEF COMPLAINT: I am doing well CARDIAC-RELEVANT [...] using a 2.0 x 26 mm ORION Almo TUCKER stent. This completes therevascularization of all [...] in [address] Lovely Vicente MD [address] [place] [phone] HISTORY OF PRESENT ILLNESS: Don Fatima is [...] using a 2.0 x 26 mm ORION Almo TUCKER stent. This completes the revascularization of [...] performed by Manny Mcknight MD at [facility] MAIN OR ??? PRO AMPUTATION FOOT, TRANSMETATARSAL Right 08/09/2017 AMPUTATION, TRANSMETATARSAL (WRVU 12.71) performed by Yonathan Smith MD at [facility] OR ??? PRO CABG, ARTERIAL, SINGLE N/A 07/07/2017 @CABG, USING ARTERIAL GRAFT;SINGLE ARTERIAL GRAFT (WRVU 33.75) performed by Yuan Retana MD at [facility] OR ??? PRO CABG, ARTERY-VEIN, TWO N/A 07/07/2017 @CABG, TWO VENOUS GRAFTS & ARTERIAL GRAFT (WRVU 7.93) performed by Yuan Retana MD at [facility] OR ??? PRO COLONOSCOPY, REMV LESN, SNARE 01/16/2014 COLONOSCOPY, POLYPECTOMY, REMOVAL LESION BY SNARE performed by Nohemi Jaimes MD at [facility] ENDOSCOPY ??? PRO DRESSING CHANGE UNDER ANESTHESIA Right 08/11/2017 (MSURG) DRESSING CHANGE (FOR OTHER THAN IVAN) UNDER ANES. (WRVU 0.86) performed by Lamar Smith MD at [facility] MAIN OR ??? PRO ENDOSCOPY W/VIDEO-ASST VEIN HARVEST, CABG Right 07/07/2017 ENDOSCOPIC HARVEST VEIN(S) FOR CABG (WRVU 0.31) performed by Yuan Reatna MD at [facility] MAIN OR ??? PRO PERC TRLUML CORONARY STENT W/ANGIO ONE ART/BRANCH N/A 01/30/2022 STENT PLACEMENT-SINGLE MAJOR CORONARY ARTERY OR BRANCH performed by Vitaliy Nobles MD at [facility] CATH LABS ??? PRO THYROIDECTOMY 03/28/2013 THYROIDECTOMY, TOTAL OR COMPLETE performed by Manny Mcknight MD at [facility] MAIN OR SOCIAL HISTORY: reports that [...] using a 2.0 x 26 mm ORION Almo TUCKER stent. This completes the revascularization of [...] Sincerely, Dr. Vitaliy Nobles MD [employer] Marketing And Public Relations Manager Interventional Cardiology 03/26/2022 CC: Lovely Vicente MD [...] [facility], transferred from [facility], respiratory [...] regurgitation present. 07/07/2019 - 07/21/2019 Zio Patch Human Resources Office Assistant The patient had a minimum heart [...] 12.5 mg daily 6. Post-op atrial fibrillation [id number] (CHF, HTN, DM, vascular disease, thromboembolism) Eliquis 7. PAD 08/06/2017: Right 1st, 2nd, 3rd toe amputation 08/11/2017: Left??femoral arterial access, RLE??angiogram, Balloon angioplasty of R PT 10/25/2017: right popliteal-pedal bypass at [facility] 8. Hypothyrodism S/p thyroidectomy for goiter [...] Zulma Dolan MD [facility] [place] [address] Liz Poole PA [facility] [place] [address] 06/10/2022 Office Visit Dermatology Laura Scherer MD [facility] DR [address] [place], [place] [address] (Wo rk) documented as of this encounter Visit Diagnoses Diagnosis Chronic systolic heart failure ASCVD (arteriosclerotic cardiovascular d isease) Unspecified cardiovascular disease Cardiomyopathy, ischemic Other specified forms of chronic ischemi c heart disease documented in this encounter Care Teams Hebrew Teacher Relationship Specialty Start Date End Date Lovely Vicente MD PCP - General 04/16/[address] [place] [address] documented as of this encounter
--- OUTSIDE RECORDS SUMMARY | 2022-04-10 08:54 | XMS_ITS | Encounter Summary ---
:1945 Author Organization [facility] [place] [address] Care Team Providers Name Role Phone Lovely Vicente MD Primary Care Provider Encounter Details Date Type Department Care Team Description 02/24/2022 Orders Only Cardiology at [facility] Liz Poole, Chronic systolic heart [facility] [place] [address] Cardiology Dept [place], [place] [address] Social History Tobacco Use Types [...] [facility] [place], [place] [address] (Wo rk) 05/28/2022 Laboratory Appointment Lab 05/28/2022 Office Visit Cardiology Zulma Dolan [place] [address] Liz Poole PA [facility] [place] [address] 06/10/2022 Office Visit Dermatology Laura Scherer MD [facility] ER DR [address] [place], [place] [address] (Wo rk) documented as of this encounter Visit Diagnoses Diagnosis Chronic systolic heart failure documented in this encounter Care Teams Pipe Straightener Relationship Specialty Start Date End Date Lovely Vicente MD PCP - General 04/16/[address] [place] [address] documented as of this encounter
--- OUTSIDE RECORDS SUMMARY | 2022-04-10 08:54 | XMS_ITS | Encounter Summary ---
:1945 Author Organization [facility] [place] [address] Care Team Providers Name Role Phone Lovely Vicente MD Primary Care Provider Reason for Visit Reason Onset Date Comments Follow-up 02/23/2022 Medication adjustmen t and new med Encounter Details Date Type Department Care Team Description 02/23/2022 Telephone Cardiology at [facility] Martha Comer, Follow-up ([facility] RN adjustbrandon t and new med) [place] [address] Social History Tobacco Use Types Packs/Day [...] the order for BMP and sent to [facility]. will call [facility] to make an appointment for next [...] tablet) daily. She will correct his pill buyer planner to the new dose. Will need to check with STEPHANIE Poole about repeat BMP to recheck K+ level. If yes he will get the test done at [facility]. They are aware that he will need to make an appt at [facility] to get the test done. Entresto: [...] if he qualifies for assistance from the [employer]. She is thankful for the assistance, as he is taking insulin that is very expensive too. Instructed to call this service writer, if he does qualify for assistance from [employer] and that he has gotten the medication [...] Zulma Dolan MD [facility] [place], [place] [address] (Wo rk) 05/28/2022 Laboratory Appointment Lab 05/28/2022 Office Visit Cardiology Zulma Dolan MD [facility] [place] [address] Liz Poole PA [facility] [place] [address] 06/10/2022 Office Visit Dermatology Laura Scherer MD [facility] [address] [place], [place] [address] (Wo rk) documented as of this encounter Visit Diagnoses Not on filedocumented in this encounter Care Teams Lab Support Service Tech Relationship Specialty Start Date End Date Lovely Vicente MD PCP - General 04/16/[address] [place] [address] documented as of this encounter
--- OUTSIDE RECORDS SUMMARY | 2022-04-10 08:54 | XMS_ITS | Encounter Summary ---
:1945 Author Organization [facility] [place] [address] Care Team Providers Name Role Phone Lovely Vicente MD Primary Care Provider Encounter Details Date Type Department Care Team Description 02/19/2022 Laboratory Appointment Lab 3L [facility] [place] [phone] Social History Tobacco Use Types Packs/Day Years [...] Dolan MD [facility] er [address] [place], [place] [address] (Wo rk) 05/28/2022 Laboratory Appointment Lab 05/28/2022 Office Visit Cardiology Zulma Dolan MD [facility] [place] [address] Liz Poole PA [facility] [place] [address] 06/10/2022 Office Visit Dermatology Laura Scherer MD [facility] [address] [place] [address] (Wo rk) documented as of this encounter [...] (ABNORMAL) Differential, Automated (02/19/2022 8:06 AM EDT) [facility] gist Method Time Signature Neutrophils % 76.0 % [facility] Neutr Abs (ANC) 5.49 1.70 - [facility] 6.10 [facility] x10(3)/[facility] LABORATORY Lymphocytes % 10.8 % [facility] Lymphocytes Abs 0.8 (L) 0.9 - 3.2 [facility] x10(3)/[facility] LABORATORY Monocytes % 10.2 % [facility] Monocyte Abs 0.7 0.3 - 0.9 [facility] x10(3)/[facility] LABORATORY Eosinophils % 1.2 % [facility] Eosinophils Abs 0.1 0.0 - 0.4 [facility] x10(3)/[facility] LABORATORY Basophils % 0.8 % [facility] Basophils Abs 0.1 0.0 - 0.1 [facility] x10(3)/[facility] LABORATORY Immature Gran % 1.00 % [facility] [...] Organization Address City/State/[place] [address] (ABNORMAL) Hemogram (02/19/2022 8:06 AM EDT) Analysis Performed At Patho logist Time Signature WBC 7.2 4.0 - 9.5 [facility] x10(3)/[facility] LABORATORY RBC 4.41 (L) 4.58 - [facility] 5.54 [facility] x10(6)/[facility] LABORATORY Hemoglobin 13.2 (L) 13.7 - [facility] g/dL [facility] LABORATORY Hematocrit 40.9 40.5 - [facility] 48.5 % [facility] LABOR[facility] MCV 92.7 82.9 - [facility] [address] [facility] LABORATORY MCH 29.9 27.5 - [facility] 32.1 pg [facility] LABORATORY MCHC 32.3 32.0 - [facility] 35.7 g/dL [facility] LABORATORY Platelets 191 145 - 357 [facility] x10(3)/[facility] LABORATORY RDWSD 53.6 (H) 36.0 - [facility] 45.[address] [facility] LABORATORY RDWCV 15.6 (H) 11.4 - [facility] 13.8 % [facility] LABORATORY MPV 8.7 7.6 - 12.9 [facility] LABORATORY nRBC % Auto 0.0 % [facility] LABORATORY nRBC Abs Auto 0.000 0.000 - [facility] 0.000 [facility] x10(3)/[facility] LABORATORY Specimen Anatomical Collection Method Collection Time Receive d Time (Source) Location / / Volume Laterality Blood 02/19/2022 8:06 AM 2 8:09 EDT AM EDT Resulting Agency Comment Spec In Lab [facility] HEMATOLOG[facility] ORDERABLES Performing Organization Address City/[facility]/[place]IP [place] [address] (ABNORMAL) pro-Brain Natriuretic Peptide [...] City/State/[place] [address] (ABNORMAL) Basic Metabolic Panel (non-fasting) (02/19/2022 8:06 AM EDT) P athologist Signature Glucose Lvl 139 65 - 199 [facility] mg/dL [facility] LABORATORY [...] Organization Address City/State/[place] [address] documented in this encounter Visit Diagnoses Diagnosis Chronic systolic heart failure documented in this encounter Care Teams Communications Technologist Relationship Specialty Start Date End Date Lovely Vicente MD PCP - General 04/16/[address] [place] [address] documented as of this encounter
--- OUTSIDE RECORDS SUMMARY | 2022-04-10 08:54 | XMS_ITS | Encounter Summary ---
:1945 Author Organization [facility] Address [facility] [place] [address] Care Team Providers Name Role Phone Lovely Vicente MD Primary Care Provider Reason for Visit Reason Comments Prior Authorization Entresto 24-26mg tablets Encounter Details Date Type Department Care Team Description 02/20/2022 Specialty Pharmacy Pharmacy at [facility] Lamberto Smith Prior Authorization [facility] J (Entresto 24-26mg Drive tablets) [place] [phone] Social History Tobacco Use Types Packs/Day Years [...] Don Fatima Patient : 1945 Patient Address: [address] [place] [address] [place] [address] (home) Medication Name: ENTRESTO 24 MG-26 MG TABLET Medication ID: [id number] Patient Location: [facility] CARDIOLOGY 4A Patient Location Comment: Medication Strength Frequency Requested: Entresto 24-26mg tablets / One tablet twice daily Qty/Day Supply: New Start: New to Therapy Diagnosis & ICD-10 Code: Chronic systolic heart failure, I50.22 Subscriber Insurance: [employer] [facility] Subscriber Insurance Comment: Fax: Physician: LIZ CARRERA Physician Comment : PA Status: NO PA REQUIRED Insurance mandated Pharmacy: Unknown Fillable at [facility]: Yes Insurance requirements/notes: None Copay: $119.01 (goes to coverage gap/odalys monteiro) Copay assistance: [employer] Copay assistance comment: If cost isn't affordable, then we'll suggest enrollment in the currently open [facility] Heart Failure zoila, which provides up to $1000 in copay assistance. If zoila closes, or doesn't work out, then the patient can attempt enrollment in the machine cloth examiner assistance program, the [employer] Patient [employer] (NPAF). At which point we'd refer to [facility] for assistance with enrollment. Pharmacy staff [...] Cardiology Zulma Dolan MD [facility] [address] [place], [place] [address] (Wo rk) 05/28/2022 Laboratory Appointment Lab 05/28/2022 Office Visit Cardiology Zulma Dolan MD [facility] [place] [address] Liz Carrera PA [facility] [place] [address] 06/10/2022 Office Visit Dermatology Laura Scherer MD [facility] ER DR [address] [place], [place] [address] (Wo rk) documented as of this encounter Visit Diagnoses Not on filedocumented in this encounter Care Teams Batter Depositor Relationship Specialty Start Date End Date Lovely Vicente MD PCP - General 04/16/[address] [place] [address] documented as of this encounter
--- OUTSIDE RECORDS SUMMARY | 2022-04-10 08:54 | XMS_ITS | Encounter Summary ---
:1945 Author Organization [facility] [place] [place] [address] Care Team Providers Name Role Phone Lovely Vicente MD Primary Care Provider Reason for Visit Auth/Cert Specialty Diagnoses / Procedures Referred By Contact Refer red To Contact Diagnoses ASCVD (arteriosclerotic cardiovascular disease) [I25.10] Vitaliy Nobles MD [facility] Procedures PRO PERC TRLUML CORONARY STENT W/ANGIO ONE ART/BRANCH CARDIAC CATHETERIZATION STENT PLACEMENT-SINGLE MAJOR CORONARY ARTERY OR BRANCH [facility] [place] [address] Referral ID Status Reason Start Date Expiration Date Visits Requ ested Visits Authorized [id number] 1 1 Encounter Details Date Type Department Care Team Description 01/30/2022 Laboratory Lab 3L Katalina ASCVD (arterios clerotic Appointment [facility] cardiovas cular disease) [place] [address] Social History Tobacco Use Types Packs/Day Years [...] Zulma Dolan MD [facility] [place], [place] [address] (Wo rk) 05/28/2022 Laboratory Appointment Lab 05/28/2022 Office Visit Cardiology Zulma Dolan MD [facility] [place] [address] Liz Poole PA [facility] [place] [address] 06/10/2022 Office Visit Dermatology Laura Scherer MD [facility] DR TE[address] GR[address]MAT [place], [place] [address] (Wo rk) documented as of [...] (ABNORMAL) Differential, Automated (01/30/2022 7:19 AM EDT) [facility] gist Method Time Signature Neutrophils % 77.9 % [facility] Neutr Abs (ANC) 5.31 1.70 - [facility] 6.10 [facility] x10(3)/[facility] LABORATORY Lymphocytes % 12.0 % [facility] Lymphocytes Abs 0.8 (L) 0.9 - 3.2 [facility] x10(3)/[facility] LABORATORY Monocytes % 8.1 % [facility] Monocyte Abs 0.6 0.3 - 0.9 [facility] x10(3)/[facility] LABORATORY Eosinophils % 0.4 % [facility] Eosinophils Abs 0.0 0.0 - 0.4 [facility] x10(3)/[facility] LABORATORY Basophils % 0.6 % [facility] Basophils Abs 0.0 0.0 - 0.1 [facility] x10(3)/[facility] LABORATORY Immature Gran % 1.00 % ST. [...] Abs 0.07 (H) 0.00 - 0.04 x10(3)/[facility] LABORATORY Specimen Anatomical Collection Method Collection Time Receive d Time (Source) Location / / Volume Laterality Blood 01/30/2022 7:19 AM 7:21 EDT AM EDT Resulting Agency Comment Spec In Lab Zulma BROWN HEMATOLOGY ORDERABLES Performing Organization Address City/State/[place] [address] (ABNORMAL) Hemogram (01/30/2022 7:19 AM EDT) Analysis Performed At Patho logist Time Signature WBC 6.8 4.0 - 9.5 [facility] x10(3)/[facility] LABORATORY RBC 4.32 (L) 4.58 - [facility] 5.54 [facility] x10(6)/[facility] LABORATORY Hemoglobin 13.0 (L) 13.7 - [facility] g/dL [facility] Hematocrit 39.8 (L) 40.5 - [facility].5 % [facility] MCV 92.1 82.9 - [facility] 93.1 fL [facility] MCH 30.1 27.5 - [facility] 32.1 pg [facility] MCHC 32.7 32.0 - [facility] 35.7 g/dL [facility] Platelets 172 145 - 357 [facility] x10(3)/[facility] LABORATORY RDWSD 54.5 (H) 36.0 - [place] 45.0 [facility] LABORATORY RDWCV 16.2 (H) 11.4 - [facility] 13.8 % [facility] MPV 9.0 7.6 - 12.9 [facility] LABORATORY nRBC % Auto 0.0 % [facility] nRBC Abs Auto 0.000 0.000 - [facility] 0.000 [facility] x10(3)/[facility] LABORATORY Specimen Anatomical Collection Method Collection Time Receive d Time (Source) Location / / Volume Laterality Blood 01/30/2022 7:19 AM 7:21 EDT AM EDT Resulting Agency Comment Spec In Lab Zulma BROWN HEMATOLOGY ORDERABLES Performing Organization Address City/State/[place] [address] (ABNORMAL) Basic Metabolic Panel (non-fasting) (01/30/2022 7:19 AM EDT) P athologist Signature Glucose Lvl 237 (H) 65 - 199 [facility] mg/dL [facility] Comment: Diabetes: >=200 mg/dL plus symp toms BUN 34 (H) 10 - 20 mg/dL [facility] Creatinine 1.45 0.80 - 1.50 mg/dL [facility] [...] LABORATORY Calcium 9.5 8.5 - 10.5 mg/dL [facility]OR[facility]ORY Estimated GFR 50 (L) [...] Organization Address City/State/ZIP Code Phon e Number [place] [id number] documented in this encounter Visit Diagnoses Diagnosis ASCVD (arteriosclerotic cardiovascular d isease) Unspecified cardiovascular disease documented in this encounter Care Teams Skein Bleacher Relationship Specialty Start Date End Date Lovely Vicente MD PCP - General 04/16/[address] [place] [address] documented as of this encounter
--- OUTSIDE RECORDS SUMMARY | 2022-04-10 08:54 | XMS_ITS | Encounter Summary ---
:1945 Author Organization [facility] Address [facility] [place] [address] Care Team Providers Name Role Phone Lovely Vicente MD Primary Care Provider Reason for Visit Reason Onset Date Comments Medication Refill 04/09/2022 Jardiance Encounter Details Date Type Department Care Team Description 04/09/2022 Refill Cardiology at [facility] Liz Poole PA Medication Refill [facility] (Ja rdiance) [place] [address] Cardiology Dept [phone] [place], [place] [address] (Wo rk) Social History [...] Zulma Dolan MD [facility] er [address] [place] [address] (Wo rk) 05/28/2022 Laboratory Appointment Lab 05/28/2022 Office Visit Cardiology Zulma Dolan MD [facility] [place] [address] Liz Poole PA [facility] [place] [address] 06/10/2022 Office Visit Dermatology Laura Scherer MD [facility] ER [address] [place], [place] [address] (Wo rk) documented as of this encounter Visit Diagnoses Diagnosis Chronic systolic heart failure documented in this encounter Care Teams Inside Sales Person Relationship Specialty Start Date End Date Lovely Vicente MD PCP - General 04/16/[address] [place] [address] documented as of this encounter
--- OUTSIDE RECORDS SUMMARY | 2022-04-10 08:54 | XMS_ITS | Clinical Summary ---
:1945 Author Organization [facility] [place] [address] Care Team Providers Name Role Phone Lovely [...] 90 tablet 3 12/12/2021 Active Tablet daily. nitroGLYcerin (Nitrostat) Place 1 tablet [...] hrIndications: Chronic systolic heart failure, Cardiomyopathy, ischemic empagliflozin (Jardiance) Take 1 tablet by mouth 90 tablet 3 0 04/09/2022 Active 10 mg TabletIndications: daily. Chronic systolic heart failure Active Problems Problem Noted [...] Encounters Date Type Specialty Care Team Description 04/09/2022 Refill Cardiology Virgilio Medication Refi ll STEPHANIE Hill (Jardiance) 04/07/2022 Refill Cardiology Valerie, Medication Refi ll STEPHANIE Tellez 03/26/2022 Office Visit Cardiology Vitaliy Nobles, Chronic systol ic heart failure; ASCVD (arterios clerotic cardiovascular disease); Cardiomyopathy, ischemic 03/06/2022 Refill Cardiology Virgilio Medication Refi ll STEPHANIE Hill (Metoprolol Suc cinate) 03/06/2022 Refill Cardiology Virgilio Medication Refi ll STEPHANIE Hill 03/06/2022 Telephone [...] 02/20/2022 Specialty Pharmacy Pharmacy Lamberto Smith A uthorization J (Entresto 24-26 mg tablets) 02/19/2022 Office Visit Cardiology Virgilio Chronic systoli c heart Liz, PA failure 02/19/2022 Laboratory Lab Chronic systoli c heart Appointment failure 01/30/2022 Surgery Cardiology Vitaliy Nobles, CARDIAC CATHET ERIZATION 01/30/2022 Laboratory Lab ASCVD (arterios clerotic Appointment cardiovascular disease) 01/30/2022 Hospital Encounter Vitaliy Nobles, ASCVD (a rteriosclerotic cardiovascular disease); 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; ASHD (arteriosc lerotic heart disease) 01/28/2022 Orders Only Cardiology Teressa, ASCVD (arterios clerotic STEPHANIE Maya cardiovascular disease) 01/28/2022 Telephone Cardiology Chitra Angela Advice Only Eliseo RN from Last 3 Months Immunizations Name [...] Dolan MD [facility] er Dr [address] [place] [address] (Wo rk) 05/28/2022 Laboratory Appointment Lab 05/28/2022 Office Visit Cardiology Zulma Dolan MD [facility] [place] [address] Liz Poole PA [facility] [place] [address] 06/10/2022 Office Visit Dermatology Laura Scherer MD [facility] ER DR [address] [place], [place] [address] (Wo rk) Health Maintenance Due Date Last Done Comments Covid-19 Vaccine (#1) 1950 Pneumoccocal Vaccine: 65+ (1 - PCV) 1952 Hepatitis C Screening 1964 Tdap adult 1965 Tetanus vaccine 1965 Zoster vaccine (1 of 2) 1996 Colonoscopy 01/16/2019 01/16/2014, 01/16/2014 Influenza (Flu) vaccine (1 of - 03/26/2022 03/29/2013, Influenza standard series) Medical Devices Implanted Type Area Global Compensation Manager Device Shelf Model / Identifier Expiration Serial / Date Lot Cable,Cut,Edg,Blnt,Ss,3tpr ([id number]) - [id number] IMPLANTS Midline: [employer] 04/01/2022 [id number] / Implanted: Qty: 4 on 07/07/2017 by Yuan Retana MD at [facility] [employer] - / [id number] Procedures Procedure Name Priority Date/Time Associated Diagnosis [...] Time Signature WBC 7.2 4.0 - 9.5 [facility] x10(3)/[facility] LABORATORY RBC 4.41 (L) 4.58 - [facility] 5.54 [facility] x10(6)/[facility] LABORATORY Hemoglobin 13.2 (L) 13.7 - [facility] 16.5 g/dL [facility] LABORATORY Hematocrit 40.9 40.5 - [facility] 48.5 % [facility] LABORATORY MCV 92.7 82.9 - [facility] 93.1 [facility] LABORATORY MCH 29.9 27.5 - [facility] 32.1 pg [facility] LABORATORY MCHC 32.3 32.0 - [facility] 35.7 g/dL [facility] LABORATORY Platelets 191 145 - 357 [facility] x10(3)/[facility] LABORATORY RDWSD 53.6 (H) 36.0 - [facility] 45.0 [facility] LABORATORY RDWCV 15.6 (H) 11.4 - [facility] 13.8 % [facility] LABORATORY MPV 8.7 7.6 - 12.9 [facility] LABORATORY nRBC % Auto 0.0 % [facility] LAB[facility]ORY nRBC Abs Auto 0.000 0.000 - [facility] 0.000 [facility] x10(3)/[facility] LABORATORY Specimen Anatomical Collection Method Collection Time Receive d Time (Source) Location / / Volume Laterality Blood 02/19/2022 8:06 AM 8:09 EDT AM EDT Resulting Agency Comment Spec In Lab Liz BROWN HEMATOLOGY ORDERABLES Performing Organization Address City/State/[place] [address] (ABNORMAL) Differential, Automated (02/19/2022 8:06 AM EDT)Only the most recent of3 resultswithin the time period is included. [facility] Method Time Signature Neutrophils % 76.0 % [facility] LABORATORY Neutr Abs (ANC) 5.49 1.70 - [facility] 6.10 [facility] x10(3)/[facility] LABORATORY Lymphocytes % 10.8 % [facility] LABORATORY Lymphocytes Abs 0.8 (L) 0.9 - 3.2 [facility] x10(3)/[facility] LABORATORY Monocytes % 10.2 % [facility] LABORATORY Monocyte Abs 0.7 0.3 - 0.9 [facility] x10(3)/[facility] LABORATORY Eosinophils % 1.2 % [facility] LABORATORY Eosinophils Abs 0.1 0.0 - 0.4 [facility] x10(3)/[facility] LABORATORY Basophils % 0.8 % [facility] Basophils Abs 0.1 0.0 - 0.1 [facility] x10(3)/[facility] LABORATORY Immature Gran % 1.00 % [...] Liz BROWN HEMATOLOGY ORDERABLES Performing Organization Address City/[facility]/[place] [address] (ABNORMAL) pro-Brain Natriuretic Peptide [...] City/[facility]/[place] [address] POCT Glucose (01/30/2022 1:41 PM EDT)Only the most recent of4 resultswithin the time period is included. P athologist Signature POC Glucose 148 65 - 199 [facility] mg/dL [facility] LABORATORY Comment: Supplemental ranges: <140 mg/dL before meals <180 mg/dL all other times of the day Specimen Anatomical Collection Method Collection Time Receive d Time (Source) Location / / Volume Laterality Blood 01/30/2022 1:41 PM 2 1:41 EDT PM EDT Vitaliy Nobles MD POINT OF CARE TEST ORDERABLE S Performing Organization Address City/[facility]/ZIP Code Phon e Number [address] EKG 12 Lead (01/30/2022 10:33 AM EDT) Component Value Ref Range Test Analysis Performed Pathologis t Method Time At Signature Ventricular rate 64 BPM MUSE SYSTEM Atrial Rate 64 BPM MUSE SYSTEM P-R Interval 162 ms MUSE SYSTEM QRS Duration 94 ms MUSE SYSTEM Q-T Interval 422 ms MUSE SYSTEM QTC Calculated 435 ms MUSE SYSTEM (Bezet) Calculated P [place] 41 degrees MUSE SYSTEM Calculated R [place] -27 degrees MUSE SYSTEM Calculated T [place] 104 degrees MUSE SYSTEM INTERPRETATION Normal sinus rhythm MUSE SYSTEM Anterolateral infarct (cited on or before 09-DEC-2021) Abnormal ECG When compared with ECG of 10-DEC-2021 11:17, No significant change was found Confirmed by Gary Perez ([id number]) on 01/30/2022 5:57:5 2 PM Specimen Anatomical [...] Laterality Volume Narrative 01/30/2022 2:09 PM EDT ?[facility] ? Cardiac Cathete rization/Intervention Report ? Patient Name: Génesis Fatimarory Mccollum. ? Procedure Date: 01/30/2022 ? A #: [id number] ? Primary Physician: Nobles, Vitaliy P ? Case #: [id number] ? File Name: [id number] ? Catheterization Order Number: [id number] ? [facility] ? Final Report [place], [place] ? Patient Name: ? Don E. Stewa rt ? ID#: ?[id number] ? : ?1945 ? Procedure Date: ? [...] patient was ?designated as ASA Class III. [facility] clinical frailty scale is 5: Mildly ?Frail. [...] was Urgent. The indication for ?the cath laboratory technician visit is stable kn own [...] guiding catheter an d a 3.5 Fr [facility] [place] [facility] [place] [address] ??20 Mhz ?using Manual pullback. ??Imagin [...] A premounted 2.00 x 26 mm Hardeep Darke (TUCKER) ? was deployed wi th a [...] Wedelivered along 2.0 x 26 mm HARDEEP Darke ? TUCKER stent and p ositioned it [...] dose administered prior to arrival in the cath laboratory technician. ?Recommended anti-platelet/anti- thrombotic regimen: ?Continue [...] using a 2.0 x 26 mm HARDEEP Darke TUCKER stent. ?This completes the revasculariz ation [...] cardiac rehab. ?The attending physician was en brock for [...] Procedure Note Vitaliy Nobles MD - 03/06/2022 [facility] Cardiac Catheterization/Intervention Re port Patient Name: Don Fatima Procedure Date: 01/30/2022 A #: [id number] Primary Physician: Vitaliy Nobles Case #: [id number] File Name: [id number] Catheterization Order Number: [id number] [facility] Final Report [place], [place] Patient Name: Don Fatiam ID#: [id number] : 1945 Procedure Date: [...] was Urgent. The indication for the cath laboratory technician visit is stable known CAD. Chest pain symptom assessment was: Typical Angina. Technique: A 6 SLFr sheath was inserted in the [facility] radial artery utilizing the Seldinger technique. The [...] 1.5 guiding catheter and a 3.5 [address] [facility] [place] [facility] [place] [address] 20 Mhz using Manual pullback. Imaging [...] A premounted 2.00 x 26 mm Hardeep Darke (TUCKER) was deployed with a maximum inflation [...] along 2. 0 x 26 mm HARDEEP Darke TUCKER stent and positioned it at the [...] administered prior t o arrival in the cath laboratory technician. Recommended anti-platelet/anti-thrombot ic regimen: Continue [...] using a 2.0 x 26 mm HARDEEP Darke TUCKER stent. This completes the revascularization of all the major vessels. He still has severe diffuse distal disease, whic h will be medically managed. Please continue Aspirin 81 mg daily,Kenny vix 75 mgand high intensity statin. He may restart Coumadin. Aspiri n may be discontinued after 2 weeks of triple therapy. Plavix and cou madin continued thereafter. The case was reviewed and discussed yas oseguera the patient and . I advised cardiac [...] T ype Group Dates MEDICARE MEDICARE PART [id number] 2011-Prese [phone] [place] [address] [employer] [place] [place] [id number] 2018-Prese [phone] [address] [place] [address] [place] [address] Advance Directives Documents on File Type Date Recorded Patient Clinical Documentation Manager Explanati on Advance Directives and Living 03/28/2013 [...] capacity to make decision: Yes Care Teams Banquet Waiter/Waitress Relationship Specialty Start Date End Date Lovely Vicente MD PCP - General 04/16/[address] [place] [address]
--- OUTSIDE RECORDS SUMMARY | 2022-04-10 08:54 | XMS_ITS | Encounter Summary ---
:1945 Author Organization [facility] [place] [address] Care Team Providers Name Role Phone Lovely Vicente MD Primary Care Provider Reason for Visit Reason Comments Medication Refill Encounter Details Date Type Department Care Team Description 04/07/2022 Refill Cardiology at [facility] Janneth Padilla PA Medication Refill [facility] [place] [address] CARDIOLOGY DEPT. [phone] [place], [place] [address] (Wo rk) Social History [...] Dolan MD [facility] er [address] [place], [place] [address] (Wo rk) 05/28/2022 Laboratory Appointment Lab 05/28/2022 Office Visit Cardiology Zulma Dolan MD [facility] [place] [address] Liz Poole PA [facility] [place] [address] 06/10/2022 Office Visit Dermatology Laura Scherer MD [facility] DR [address] [place], [place] [address] (Wo rk) documented as of this encounter Visit Diagnoses Not on filedocumented in this encounter Care Teams Structural Test Engineer Relationship Specialty Start Date End Date Lovely Vicente MD PCP - General 04/16/[address] [place] [address] [address] [place] [address] documented as of this encounter
--- OUTSIDE RECORDS SUMMARY | 2022-04-10 08:54 | XMS_ITS | Encounter Summary ---
:1945 [place] [address] Care Team Providers Name Role Phone Lovely Vicente MD Primary Care Provider Reason for Visit Reason Onset Date Comments Follow-up 03/06/2022 Dave Bueno Encounter Details Date Type Department Care Team Description 03/06/2022 Telephone Cardiology at [facility] Martha Comer, Follow-up ([facility] VAMSI Start) [place] [address] Social History Tobacco Use Types Packs/Day [...] pt had gotten his labs done at [facility] yesterday. Results received, scanned and entered into [...] Dolan MD [facility] [address] [place] [address] (Wo rk) 05/28/2022 Laboratory Appointment Lab 05/28/2022 Office Visit Cardiology Zulma Dolan MD [facility] [place] [address] Liz Poole PA [facility] [place] [address] 06/10/2022 Office Visit Dermatology Laura Scherer MD [facility] DR [address] [place], [place] [address] (Wo rk) documented as [...] on filedocumented in this encounter Care Teams Anesthesiology Tech Relationship Specialty Start Date End Date Lovely Vicente MD PCP - General 04/16/[address] [place] [address] documented as of this encounter
--- OUTSIDE RECORDS SUMMARY | 2022-04-10 08:54 | XMS_ITS | Encounter Summary ---
:1945 Author Organization [facility] [place] [address] Care Team Providers Name Role Phone Lovely Vicente MD Primary Care Provider Reason for Visit Reason Onset Date Comments Medication Refill 03/11/2022 Encounter Details Date Type Department Care Team Description 03/06/2022 Refill Cardiology at [facility] Liz Poole PA Medication Refill [facility] Jorge mcnamara [facility] [place] [address] Cardiology Dept [phone] [place], [place] [address] (Wo rk) Social History Tobacco [...] Zulma Dolan MD [facility] er [place], [place] [address] (Wo rk) 05/28/2022 Laboratory Appointment Lab 05/28/2022 Office Visit Cardiology Zulma Dolan MD [facility] [place] [address] Liz Poole PA [facility] [place] [address] 06/10/2022 Office Visit Dermatology Laura Scherer MD [facility] ER DR [address] [place], [place] [address] (Wo rk) documented as of this encounter Visit Diagnoses Not on filedocumented in this encounter Care Teams Kennel Operator Relationship Specialty Start Date End Date Lovely Vicente MD PCP - General 04/16/[address] [place] [address] documented as of this encounter
--- OUTSIDE RECORDS SUMMARY | 2022-04-10 08:54 | XMS_ITS | Encounter Summary ---
:1945 Author Organization [facility] [place] [address] Care Team Providers Name Role Phone Lovely Vicente MD Primary Care Provider Reason for Referral Diagnostic Test (Routine) - New Request Specialty Diagnoses / Procedures Referred By Contact Refer red To Contact Cardiology Diagnoses Chronic systolic heart failure Liz Carrera PA [facility] Non-Inv Card Lab Procedures Echocardiogram Transthoracic [facility] [place] [address] [place] [address] Fax: Referral ID Status Reason Start Expiration Visits Visits Date Date Requested Authorized [id number] New Request Specialty 02/19/2022 02/19/2023 1 1 Service Requested Encounter Details Date Type Department Care Team Description 02/19/2022 Office Visit Cardiology at [facility] Liz Carrera, Chronic systolic heart [facility] [place] [address] Cardiology Dept [phone] [place], [place] [address] Social History Tobacco Use Types [...] As per DC Summary - Admitted to [facility] on 12/08/21, transferred from [facility], respiratory distress with hypoxia 86% [...] mg PO daily in place of Lasix. [place] is new for him and he will [...] Antiplatelet (DAPT) Recommendations above ? TTE from [facility] 12/08/21 ?? 07/28/2019 Echocardiogram: SUMMARY: 1. [...] regurgitation present. 07/07/2019 - 07/21/2019 Zio Patch Foot Roentgenologist The patient had a minimum heart rate [...] 12.5 mg daily 6. Post-op atrial fibrillation [id number] (CHF, HTN, DM, vascular disease, thromboembolism) Eliquis 7. PAD 08/06/2017: Right 1st, 2nd, 3rd toe amputation 08/11/2017: Left??femoral arterial access, RLE??angiogram, Balloon angioplasty of R PT 10/25/2017: right popliteal-pedal bypass at [facility] 8. Hypothyrodism S/p thyroidectomy for goiter [...] Cardiology Zulma Dolan MD [facility] [place], [place] [address] (Wo rk) 05/28/2022 Laboratory Appointment Lab 05/28/2022 Office Visit Cardiology Zulma Dolan MD [facility] [place] [address] Liz Carrera PA [facility] [place] [address] 06/10/2022 Office Visit Dermatology Laura Scherer MD [facility] DR TE[address]-DERMAT [facility] [place] [address] (Wo rk) Scheduled Orders Name Type Priority Associated Order Schedule Diagnoses Echocardiogram Echocardiography Routine Chronic systolic Expec vlad: Transthoracic heart failure 05/22/2022 (Approximate), Expires: 11/21/2022 documented as of this encounter Results (ABNORMAL) Basic Metabolic Panel (non-fasting) (02/19/2022 8:06 AM EDT) P athologist Signature Glucose Lvl 139 65 - 199 [facility] mg/dL [facility] [...] City/State/ZIP Code Phon e Number [place] [id number] (ABNORMAL) pro-Brain Natriuretic Peptide (02/19/2022 8:06 AM EDT) P athologist Signature ProBNP 984 (H) <=449 pg/mL [facility] LABORATORY Specimen Anatomical Collection Method Collection Time Receive d Time (Source) Location / / Volume Laterality Blood 02/19/2022 8:06 AM 8:09 EDT AM EDT Resulting Agency Comment Spec In Lab Zulma Plunkett MD CHEMISTRY ORDERABLES Performing Organization Address City/[facility]/[place] [address] documented in this encounter Visit Diagnoses Diagnosis Chronic systolic heart failure documented in this encounter Care Teams Cement Fittings Maker Relationship Specialty Start Date End Date Lovely Vicente MD PCP - General 04/16/[address] [place] [address] documented as of this encounter
--- OUTSIDE RECORDS SUMMARY | 2022-04-10 08:54 | XMS_ITS | Encounter Summary ---
:1945 Author Organization [facility] [place] [address] Care Team Providers Name Role Phone Lovely Vicente MD Primary Care Provider Encounter Details Date Type Department Care Team Description 02/23/2022 Refill Cardiology at [facility] Liz Poole PA [facility] [place] [address] Cardiology Dept [phone] [place], [place] [address] (Wo rk) Social History Tobacco [...] Oneill RPH Transfer of Services Don Fatima [address] [place] [address] [place] [address] Telephone Information: Work Phone Not on file. The [facility] has received a prescription for Entresto for patient Mr. Don Fatima 76 y.o. (1945). The patient requests the prescription to be filled with [facility]. We spoke to patient to notify of this change and to provide number to reach the new filling pharmacy. A copyof patient's medication profile was offered to the accepting pharmacy. Additional instructions provided to patient about transfer: no The patient has been advised to call the [facility] at [phone] with any questionsor concerns on this referral. Thank you, Oxana Oneill RPH 02/23/22 4:26 PM Patient understands no changes to current drug regimen were made at this time. documented in this encounter Plan of Treatment Upcoming Encounters Date Type Specialty Care Team Description 05/28/2022 Appointment Cardiology Zulma Dolan MD [facility] [place], [place] [address] (Wo rk) 05/28/2022 Laboratory Appointment Lab 05/28/2022 Office Visit Cardiology Zulma Dolan MD [facility] [place] [address] Liz Poole PA [facility] [place] [address] 06/10/2022 Office Visit Dermatology Laura Scherer MD [facility] DR TEJA GR-DERMAT [place], [place] [address] (Wo rk) documented as of this encounter Visit Diagnoses Not on filedocumented in this encounter Care Teams Broadcast Journalist Relationship Specialty Start Date End Date Lovely Vicente MD PCP - General 04/16/[address] [place] [address] documented as of this encounter
--- OUTSIDE RECORDS SUMMARY | 2022-04-10 08:55 | XMS_ITS | Encounter Summary ---
:1945 Author Organization [facility] [place] [address] Care Team Providers Name Role Phone Lovely Vicente MD Primary Care Provider Encounter Details Date Type Department Care Team Description 12/15/2021 Telephone Cardiology at [facility] Barbara [place]era, [place] [address] Social History Tobacco Use Types Packs/Day [...] Zulma Dolan MD [facility] [place], [place] [address] (Wo rk) 05/28/2022 Laboratory Appointment Lab 05/28/2022 Office Visit Cardiology Zulma Dolan MD [facility] [place] [address] Liz Poole PA [facility] [place] [address] 06/10/2022 Office Visit Dermatology Laura Scherer MD [facility] [address] [place], [place] [address] (Wo rk) documented as of this encounter Visit Diagnoses Not on filedocumented in this encounter Care Teams Dopeman Relationship Specialty Start Date End Date Lovely Vicente MD PCP - General 04/16/15 [facility] [address] [place] [address] documented as of this encounter
--- OUTSIDE RECORDS SUMMARY | 2022-04-10 08:55 | XMS_ITS | Encounter Summary ---
:1945 Author Organization [facility] Address [facility] [place] [address] Care Team Providers Name Role Phone Lovely Vicente MD Primary Care Provider Reason for Visit Auth/Cert Specialty Diagnoses / Procedures Referred By Contact Refer red To Contact Diagnoses ASCVD (arteriosclerotic cardiovascular disease) [I25.10] Vitaliy Nobles MD [facility] Procedures PRO PERC TRLUML CORONARY STENT W/ANGIO ONE ART/BRANCH CARDIAC CATHETERIZATION STENT PLACEMENT-SINGLE MAJOR CORONARY ARTERY OR BRANCH [facility] [place] [address] Referral ID Status Reason Start Date Expiration Date Visits Requ ested Visits Authorized [id number] 1 1 Encounter Details Date Type Department Care Team Description 01/30/2022 Hospital Encounter Short Stay Unit at Vitaliy Nobles, CVD (arteriosclerotic cardiovascular disease); Barbara Blue MD 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 ASHD (arteriosclerotic heart disease) [facility] [place] [address] [phone] Social History Tobacco Use Types Packs/Day Years [...] and Clopidogrel. Please follow up with your auto camp attendant in the next 4-6 weeks. We have made a referral to cardiac rehab. Please see the attached instructions regarding care to your right wrist access site. AttachmentsThe following attachments cannot be sent through Care Everywhere. Coronary Angiogram: Post-op (Syriac)documented in this encounter Medications at Time of Discharge Medication Sig Dispensed Refills Start Date End Date clobetasoL (TEMOVATE) APPLY TOPICALLY DAILY 0 02/2022 0.05 % Solution NEEDED FOR RASH torsemide (Demadex) 20 Take 1 tablet by mouth 30 tablet 11 0 12/25/2021 mg TabletIndications: daily. Chronic systolic heart failure clopidogreL (Plavix) Take 1 tablet by mouth 90 tablet 3 75 mg Tablet daily. nitroGLYcerin Place 1 tablet under 90 tablet [...] 02/13/2022 PO/OG/NG route daily for 14 days. empagliflozin Take 1 tablet by mouth 30 tablet 3 12/12/2021 04/09/2022 (Jardiance) 10 mg daily. Tablet spironolactone Take 1 tablet by mouth 90 [...] - 01/30/2022 4:54 PM EDT [facility] Short Stay Unit Discharge Note All relevant [...] recent PCI presenting for staged PCI to [facility]. The pt states he [...] recent PCI presenting for staged PCI to [facility]. The indications, expected benefits, [...] had referred him to cardiac rehab at [facility] last month per HF team. He was waiting until this intervention before starting the program. Reviewed managing angina /use of sl nitroglycerin. Given parameters for home exercise. 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 We discussed short walks several times per day. Will send [facility] his discharge summary from this admission. The patient should be contacted by the Program within 1- 2 weeks from discharge. Brief Op Note - Vitaliy Nobles MD - 01/30/2022 10:19 AM EDT Images from the original note were not included. [facility] [place] [address] [address] CORONARY ANGIOGRAM AND PERCUTANEOUS CORONARY INTERVENTION REPORT Patient: Don Fatima : 1945 MR number: [id number] Date of Service: 01/30/2022 Beer Maker: Vitaliy Nobles MD Fellow: KEYON Elizabeth [...] a long 2.0 x 26 mm [place] TUCKER stent and positioned it at the [...] using a 2.0 x 26 mm [place] TUCKER stent. This completes the revascularization ofall [...] Zulma Dolan MD [facility] er [place] [address] (Wo rk) 05/28/2022 Laboratory Appointment Lab 05/28/2022 Office Visit Cardiology Zulma Dolan MD [facility] [place] [address] Liz Poole PA [facility] [place] [address] 06/10/2022 Office Visit Dermatology Laura Scherer MD [facility] ER [address]DERMAT [place], [place] [address] (Wo rk) Scheduled Orders Name [...] (ANC) 3.96 1.70 - [facility] 6.10 [facility] x10(3)/[facility] LABORATORY Lymphocytes % 16.3 % [facility] LABORATORY Lymphocytes Abs 0.9 0.9 - 3.[address] [facility] x10(3)/[facility] LABORATORY Monocytes % 10.0 % [facility] LABORATORY Monocyte Abs 0.6 0.3 - 0.[address] [facility] x10(3)/[facility] LABORATORY Eosinophils % 0.5 % [facility] LABORATORY Eosinophils Abs 0.0 0.0 - 0.[address] [facility] x10(3)/[facility] LABORATORY Basophils % 0.5 % [facility] LABORATORY Basophils Abs 0.0 0.0 - 0.[address] [facility] x10(3)/[facility] LABORATORY Immature Gran % 0.90 % [facility] [...] Organization Address City/State/[place] [address] (ABNORMAL) Hemogram (01/30/2022 2:12 PM EDT) Analysis Performed At Patho logist Time Signature WBC 5.5 4.0 - 9.[address] [facility] x10(3)/[facility] LABORATORY RBC 4.30 (L) 4.58 - [place] [facility] 5.54 [facility] x10(6)/[facility] LABORATORY Hemoglobin 12.7 (L) 13.7 - [facility] 16.5 g/dL [facility] LABORATORY Hematocrit 39.4 (L) 40.5 - [place] [facility] 48.5 % [facility] LABORATORY MCV 91.6 82.9 - [facility] 93.1 [facility] LABORATORY MCH 29.5 27.5 - [place] ZHAOSU 32.1 pg [facility] LABORATORY MCHC 32.2 32.0 - [place] 35.7 g/dL [facility] LABORATORY Platelets 172 145 - [address] [facility] x10(3)/[facility] LABORATORY RDWSD 54.5 (H) 36.0 - [facility] 45.0 [facility] LABORATORY RDWCV 16.4 (H) 11.4 - [facility] 13.8 % [facility] LABORATORY MPV 9.2 7.6 - 12.9 [facility] LABORATORY nRBC % Auto 0.0 % [facility] LABORATORY nRBC Abs Auto 0.000 0.000 - [facility] 0.000 [facility] x10(3)/[facility] LABORATORY Specimen Anatomical Collection Method Collection Time Receive d Time (Source) Location / / Volume Laterality Blood 01/30/2022 2:12 PM 2 2:37 EDT PM EDT Resulting Agency Comment Spec In Lab Eddi Elizabeth Jr., MD HEMATOLOGY ORDERABLES Performing Organization Address City/State/[place] [address] (ABNORMAL) Basic Metabolic Panel (non-fasting) (01/30/2022 2:12 PM EDT) P athologist Signature Glucose Lvl 163 65 - [address] [facility] mg/dL [facility] LABORATORY Comment: Diabetes: >=200 mg/dL plus symp toms BUN 30 (H) 10 - 20 mg/dL [facility] LABORATORY Creatinine 1.47 0.80 - 1.50 mg/dL [facility] LABORATORY Sodium 140 135 - 145 [...] Organization Address City/State/[place] [address] POCT Glucose (01/30/2022 1:41 PM EDT) athologist Signature POC Glucose 148 65 - [address] [facility] mg/dL [facility] LABORATORY Comment: Supplemental [...] [facility]/ZIP Code Phon e Number [address] POCT Glucose (01/30/2022 10:48 AM EDT) P athologist Signature POC Glucose 193 65 - [address] [facility] mg/dL [facility] LABORATORY Comment: Supplemental ranges: <140 mg/dL before meals <180 mg/dL all other times of the day Specimen Anatomical Collection Method Collection Time Receive d Time (Source) Location / / Volume Laterality Blood 01/30/2022 10:48 01/30/2022 AM EDT 10:48 AM EDT Vitaliy Sandra Nobles MD POINT OF CARE TEST ORDERABLE S Performing Organization Address [facility] [place] [address] EKG 12 Lead (01/30/2022 10:33 AM EDT) Component Value Ref Range Test Analysis Performed Pathologis t Method Time At Signature Ventricular rate 64 BPM MUSE SYSTEM Atrial Rate 64 BPM MUSE SYSTEM P-R Interval 162 ms MUSE SYSTEM QRS Duration 94 ms MUSE SYSTEM Q-T Interval 422 ms MUSE SYSTEM QTC Calculated 435 ms MUSE SYSTEM (Bezet) Calculated P [place] 41 degrees MUSE SYSTEM Calculated R [place] -27 degrees MUSE SYSTEM Calculated T [place] 104 degrees MUSE SYSTEM INTERPRETATION Normal sinus rhythm MUSE SYSTEM Anterolateral infarct (cited on or before 09-DEC-2021) Abnormal ECG When compared with ECG of 10-DEC-2021 11:17, No significant change was found Confirmed by Gary Perez ([id number]) on 01/30/2022 5:57:5 2 PM Specimen Anatomical Collection Method Collection Time Receive d Time (Source) Location / / Volume Laterality 01/30/2022 10:33 01/30/2022 5:57 AM EDT PM EDT Vitaliy Sandra Nobles MD ECG ORDERABLES Performing Organization Address City/[facility]/ZIP Code Phon e Number MUSE SYSTEM CARDIAC CATHETERIZATION (01/30/2022 10:16 AM EDT) Anatomical Region Laterality Modality Other Specimen (Source) Anatomical Location Collection Method / Collectio n Time Received Time / Laterality Volume Narrative 01/30/2022 2:09 PM EDT ?[facility] ? Cardiac Cathete rization/Intervention Report ? Patient Name: Don Fatima. ? Procedure Date: 01/30/2022 ? A #: [id number] ? Primary Physician: Nobles, Vitaliy P ? Case #: [id number] ? File Name: [id number] ? Catheterization Order Number: [id number] ? [facility] ? Final Report [place], [place] ? Patient Name: ? Don Mccollum. Stewa rt ? ID#: ?[id number] ? : ?1945 ? Procedure Date: ? January 30, 2022 ? Case #: ? [id number] ? Room: ? 1 ? Case Physician: ? Vitaliy Nobles MMadiha Patel. ?Start: ?08:54 ?Fellow: ? Eddi Elizabeth Jr., [...] ?designated as ASA Class III. 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 Chest pain symptom assessment ?was: Typical Angina. ? Technique: ?A 6 SLFr sheath was inserted in the right radial artery utilizing the ?Seldinger technique. The right coronary artery was injected utilizing a ?IR 2.0 catheter. Coronary stent insertion was performed and the equipment ?utilized will be described in [facility] intervention summary section. 9,000 ?units of [...] guiding catheter an d a 3.[address] [place] [place] [address] ??20 Mhz ?using Manual pullback. ??Imagin [...] A premounted 2.00 x 26 mm [place] (TUCKER) ? was deployed wi a maximum [...] Wedelivered along 2.0 x 26 mm [place] ? TUCKER stent and p ositioned it [...] administered prior to arrival in the laboratory equipment cleaner. ?Recommended anti-platelet/anti- thrombotic regimen: ?Continue aspirin 81 [...] ?modification of this regimen. C onsult [facility] Interventional Cardiology [...] using a 2.0 x 26 mm [place] TUCKER stent. 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 Chest pain [...] 1.5 guiding catheter and a 3.[address] [address] 20 Mhz using Manual pullback. Imaging [...] atmospheres. A premounted 2.00 x 26 mm [place] (TUCKER) was deployed with a maximum inflation [...] along 2. 0 x 26 mm [place] TUCKER stent and positioned it at the [...] administered prior t o arrival in the laboratory equipment cleaner. Recommended anti-platelet/anti-thrombot ic regimen: Continue aspirin 81 [...] * Successful stent insertion of the ent erci vessel RPDA lesion * See Dual Antiplatelet [...] using a 2.0 x 26 mm [place] TUCKER stent. This completes the revascularization of [...] - 199 [facility] mg/dL [facility] LABORATORY Comment: Supplemental ranges: <140 mg/dL before meals <180 mg/dL all other times of the day Specimen Anatomical Collection Method Collection Time Receive d Time (Source) Location / / Volume Laterality Blood 01/30/2022 9:04 AM 2 9:04 EDT AM EDT Vitaliy Nobles MD POINT OF CARE TEST ORDERABLE S Performing Organization Address City/State/ZIP [place] [address] (ABNORMAL) POCT Glucose (01/30/2022 8:10 AM EDT) athologist Signature POC Glucose 224 (H) 65 - 199 [facility] mg/dL [facility] LABORATORY Comment: Supplemental ranges: <140 mg/dL before meals <180 mg/dL all other times of the day Specimen Anatomical Collection Method Collection Time Receive d Time (Source) Location / / Volume Laterality Blood 01/30/2022 8:10 AM 2 8:10 EDT AM EDT Vitaliy Nobles MD POINT OF CARE TEST ORDERABLE S Performing Organization Address City/State/ZIP [place] [address] documented in this encounter Visit Diagnoses Diagnosis ASCVD (arteriosclerotic cardiovascular d isease) Unspecified cardiovascular disease 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 ASHD (arteriosclerotic heart disease) Coronary atherosclerosis of unspecified type of vessel, [place] or graft ASCVD (arteriosclerotic cardiovascular d isease) Unspecified cardiovascular disease documented in this encounter Admitting Diagnoses Diagnosis CAD (coronary artery disease) Coronary atherosclerosis of unspecified type of vessel, [place] or graft documented in this encounter Administered [...] Procedure), Routine niCARdipine (Cardene) (100 mcg/mL) dilution (SHIPPING AGENT) (CANCELED ) 0927 (Given - Provider: Vitaliy [...] (Intra-Procedure) documented in this encounter Care Teams Plastic Technician Relationship Specialty Start Date End Date Lovely Vicente MD PCP - General 04/16/[address] [place] [address] documented as of this encounter
--- OUTSIDE RECORDS SUMMARY | 2022-04-10 08:55 | XMS_ITS | Encounter Summary ---
:1945 Author Organization [facility] [place] [address] Care Team Providers Name Role Phone Lovely Vicente MD Primary Care Provider Reason for Referral Consultation (Routine) - Closed Specialty Diagnoses / Referred By Contact Referred To Contact Procedures Cardiac Rehabilitation Diagnoses Acute HFrEF (heart failure with reduced ejection fraction) Janneth Padilla, Cardiac Rehab, [address] [place] CARDIOLOGY DEPT. [address] [place] [address] Referral ID Status Reason Start Date Expiration Date Visits V isits Requested Authorized [id number] Closed Consult, 12/12/2021 12/12/2022 36 36 Test & Treat Reason for Visit Auth/Cert Specialty Diagnoses / Procedures Referred By Contact Refer red To Contact Diagnoses NSTEMI Procedures emerg ipi Referral ID Status Reason Start Date Expiration Date Visits Requ ested Visits Authorized [id number] 1 1 Encounter Details Date Type Department Care Team Description 12/08/2021 - Hospital Encounter Intermediate Cardiac Iker Cuevas MD [facility] [place] [address] Non-ST elevation myocardial infarction ( NSTEMI); 12/12/2021 Care Unit Ifeanyi Rene MD [facility] [address] ST elevation myocardial infarction (STEM I), unspecified artery; [facility] Acute HFr EF (heart failure with reduced ejection fraction) [place] [address] Social History Tobacco Use Types Packs/Day Years [...] Don Fatima Patient Age: 76 y.o. Language: Romansh Race: White Ethnicity: Not nor Admit date: [...] Peter PA-C Kelly LaFlamme PA-C Cardiovascular Medicine [phone] Discharge Diagnoses (Hospital Problems) and Secondary Diagnoses [...] 3.75 guiding catheter and a 3.5 Fr [facility] [place] [place] 20 Mhz using Manual pullback. Imaging was successful. Image quality was good. The ostial LCX showed moderate diffuse atherosclerotic plaque with scattered three quadrant calcification. Measurements were performed after pre-dilation. Post Intervention: The stent was well expanded and apposed. Intravascular Ultrasound was performed in the distal LM using a 7 Fr EBU 3.75 guiding catheter and a 3.5 Fr [facility] [place] 20 Mhz using Manual pullback. Imaging [...] may require modification of this regimen. Consult [facility] Interventional Cardiology for questions. The 1 year [...] mg PO daily in place of lasix. [place] is new for him and he will [...] to be ~$24/mo; affordable per patient. Post [facility] he was started on Eliquis. He [...] appointments: During 8am-5pm Wednesday through Wednesday call [phone] to speak with a nurse in the cardiology clinic All other times call [phone] and ask to speak to the pbx mechanic hearing consultant. Return to work: One week Driving: No driving for 48 hours after catheterization. Follow up Appointments: PCP Lovely Vicente MD [phone] to see patient at the end of December for annual check up. Patient to see Dr. Lorenzana at 1120 am at December 19 for a post hospital check up. [place] Wrapper Maker Dr. De Oliveira to see you in [facility]. Left a message for office to set a date and time. Please call [phone] Nobles to see the patient for a same day cath in 2-3 weeks from now. Office to call with a date and time. For questions please call [phone] Home oxygen therapy: N/A Arrangements for VNA/home care: none Future Appointments and Orders Future Orders Complete By Expires Basic Metabolic Panel (non-fasting) [LAB15 Custom] 12/19/2021 (Approximate) 12/12/2022 Process Instructions: INCLUDES: Calcium, BUN, Creat, GFR, Glucose, Lytes Scheduling Instructions: Comments: Questions: Referral to Cardiac Rehab [STG448 Custom] As directed Process Instructions: If no [...] appointments: During 8am-5pm Wednesday through Wednesday call [phone] to speak with a nurse in the cardiology clinic All other times call [phone] and ask to speak to the pbx mechanic hearing consultant. Return to work: One week Driving: No driving for 48 hours after catheterization. Follow up Appointments: PCP Lovely Vicente MD [phone] to see patient at the end of December for annual check up. Patient to see Dr. Lorenzana at 1120 am at December 19 for a post hospital check up. [place] Wrapper Maker Dr. De Oliveira to see you in [facility]. Left a message for office to set a date and time. Please call [phone] Nobles to see the patient for a same day cath in 2-3 weeks from now. Office to call with a date and time. For questions please call [phone] Home oxygen therapy: N/A Arrangements for VNA/home [...] 3 01/29/2022 mg Tablet 2 times daily. empagliflozin Take 1 tablet by mouth [...] Progress Note Patient Name: Don Fatima Service: EDUCATION PROFESSOR / PA Responsible Attending: Ifeanyi Truong MD [...] was given Lasix 80mg IV x1 in mini lab operator. Tolerated procedure well. Home today at [...] TROPONINT 1.13* 0.92* 0.89* Pertinent Radiographic/Diagnostic Results: R/[facility] 12/10/21 Hemodynamics: Right Heart Pressures Resting: [...] the saphenous vein graft to the Diagonal * Moderate pulmonary hypertension * Elevated pulmonary [...] with MD Janneth Neville PA 12/12/2021 Pager [phone] Associated attestation - Ifeanyi Truong MD - [...] ratio for each meal) Desirae Jett APRN [facility] Endocrinology Diabetes Management Pager [phone] 20 minutes of this 35 minute visit [...] Progress Note Patient Name: Don Fatima Service: EDUCATION PROFESSOR / PA Responsible Attending: Iker Cuevas MD Reason for continued hospitalization: ?? NSTEMI- s/p R/LHC- PCW 27, occluded SVGs s/p PCI to ostial LCX ?? ADHF and hypoxia- IV diuresis ?? Home likely Homero 12/12/2021 ?? RCA to be worked on as [...] was given Lasix 80mg IV x1 in mini lab operator. Tolerated procedure well. Review of Systems: [...] 76 BILITOT 1.1 BILIDIR 0.2 Recent Labs 12/11/2142712/10/21181112/10/2142412/09/21192912/09/21617 CALCIUM 8.6 8.3* 8.0* < > 8.8 MAGNESIUM 1.04 -- 0.95 -- 0.81 < > = values in this interval not displayed. Recent Labs 12/09/2161712/08/21220212/08/211801 TROPONINT 1.13* 0.92* 0.89* Pertinent Radiographic/Diagnostic Results: R/[facility] 12/10/21 Hemodynamics: Right Heart Pressures Resting: [...] and with normal saturations off oxygen. On 517 AM experienced acute hypoxia and dyspnea [...] and answered his questions. Iker Cuevas MD [facility] Total time spent on review of records prior to visit, face to face time with patient during visit, documentation, and coordination of care with other clinicians: 25 minutes. . Iker Cuevas MD - 12/10/2021 12:30 PM EDT Images from the original note were not included. Inpatient Cardiology Progress Note Patient Name: Don Fatima Service: EDUCATION PROFESSOR / PA Responsible Attending: Iker Cuevas MD [...] was given Lasix 80mg IV x1 in mini lab operator. Tolerated procedure well. Review of Systems: [...] ??? heparin (porcine) infusion 1,600 Units/hr (12/09/21 6553) PRN Meds:ipratropium-albuteroL, senna-docusate, bisacodyL, sodium chloride 0.9 [...] Lab Comments: Recent Labs 12/10/21 0425 12/09/21 61712/08/21 1802 WBC 9.4 17.2* 15.6* HGB 11.1* [...] BILITOT 1.1 BILIDIR 0.2 Recent Labs 12/10/2142412/09/21192912/09/2161712/08/21 180 CALCIUM 8.0* 8.1* 8.8 8.6 MAGNESIUM 0.95 -- 0.81 0.86 Recent Labs 12/09/2161712/08/21220212/08/21 180 TROPONINT 1.13* 0.92* 0.89* Pertinent Radiographic/Diagnostic Results: R/[facility] 12/10/21 Hemodynamics: Right Heart Pressures Resting: [...] Discussed with MD Migdalia Peter PA-C Pager #[phone] 12/10/2021 Cardiology Attending Note I have seen [...] updated and given pictures. Iker Cuevas MD [facility] Total time spent on review of records prior to visit, face to face time with patient during visit, documentation, and coordination of care with other clinicians: 35 minutes. Iker Cuevas MD - 12/09/2021 7:28 AM EDT Images from the original note were not included. Inpatient Cardiology Progress Note Patient Name: Don Fatima Service: EDUCATION PROFESSOR / PA Responsible Attending: Iker Cuevas MD Reason for continued hospitalization: NSTEMI- awaiting R/LHC ADHF and hypoxia- IV diuresis, R/LHC Active Problems: Active Hospital Problems Diagnosis ??? Admitted with 2 days of sob, hypoxemia, and + trop. Known CAD with hx of CO and CABG. DM. MARIA VITCORIA.ICM. ??? ASHD (arteriosclerotic heart disease) NSTEMI 3VCAD [...] ??? heparin (porcine) infusion 1,600 Units/hr (12/09/21 1672) PRN Meds:ipratropium-albuteroL, sodium chloride 0.9 % (flush), [...] Discussed with MD Migdalia Peter PA-C Pager #[phone] 12/09/2021 Cardiology Attending Note I have seen [...] < 70 -CPAP tonight Iker Cuevas MD [facility] Total time spent on review [...] MD at [facility] MAIN OR Significant Family History: [...] PEN NEEDLE UF MINI 31 gauge x / Needle 1 each by Other route 4 [...] Monitor for ADRs. Trend troponins. Admission EKG. [facility] 12/09; consented. TTE. Telemetry monitoring, daily weights, I/O routine labs. Fasting lipid panel and TSH in a.m. #HFrEF Continue metoprolol and losartan. Lisinopril caused cough. Furosemide 40mg IV x1. He states she usually wakes 200-210 pounds. TTE #Paroxysmal atrial fibrillation Currently in sinus rhythm. Holding warfarin which is followed by his PCP. Home dosing 5 Mg HAYS/T/W// and 7.5 mg /. Heparin infusion as [...] code #Diet-carb control; n.p.o. after midnight for [facility] #DVT prophy- heparin infusion #GI prophy- PPI Discussed with MD Morgan Peter PA-C APP2 pager [phone] 12/08/2021 Cardiology Attending Note I have seen [...] know patient is here. Iker Cuevas MD [facility] documented in this encounter Miscellaneous [...] Type: *No Product type* / Secondary Insurance: [employer] [place] Prescription Coverage: Yes This plan was [...] cath without complications. Migdalia Parker PA-C Pager #[phone] 12/10/2021 Initial Assessments - Nick Georges RN [...] COVID test: Lab Results Component Value Date [id number] Not Detected 12/08/2021 Past medical History: Past [...] 180 days) Any patient receiving care at [facility] must abide by [place] law. The hierarchy [...] (i) The agent with financial power of hand bootmaker or a conservator appointed in accordance with [...] - standard, cane - straight Home Address: [address] [place] [address] [place] [id number] Social & Family Supports: All names listed below confirmed with patient as current and correct Extended Emergency Contact Information Primary Emergency Contact: Kisha Fatima Address: [address] [place] [address] [place] [address] [facility] Mobile Relation: Spouse Secondary Emergency Contact: Elba Swenson Address: [address] Mobile Relation: Child Current Care Provided [...] Type: *No Product type* / Secondary Insurance: [employer] [facility] Prescription Coverage: Yes Preferred Pharmacy: [facility] Home Delivery [facility] [id number] [address] - [address] [address] [place] Status: Patient is a : unable to assess Primary Care Provider: Lovely Vicente MD [phone] Patient/Caregiver Goals of Treatment: Get out of here Potential Needs for Transition of Care: none Agency Referrals: none patient has used [facility] in the past Transportation: no concerns Transportation Anticipated: family or friend will provide Concerns to be Addressed: patient refuses services, discharge planning Assessment: Patient is admitted to [facility] Service pager [phone] for 76 y.o.??male??with h/o??CAD s/p 3vCABG (THOMPSON-LAD, [...] status on current unit. Nick Georges RN orchard manager, Office of Care Management Pager: [phone] Brief Op Note - Vitaliy Nobles MD - 12/10/2021 8:31 AM EDT Images from the original note were not included. [facility] [place] [address] CORONARY ANGIOGRAM AND PERCUTANEOUS CORONARY INTERVENTION REPORT Patient: Don Fatima : 1945 MR number: [id number] Date of Service: 12/10/2021 Physician Industrial: Vitaliy Nobles MD Fellow: Rancho Woods MD [...] dictated or confirmed the above report. Vitaliy Nobles, MD MS [facility] 12/10/2021 8:31 AM Consult [...] R metatarsal amputation and hypothyroidism s/p thyroidectomy 2013 who was admitted on 12/08/2021 currently being treated for hypoxia, dys. We are being consulted to assist with diabetes management and to provide a review of ferry terminal agent diabetes care. Diabetes History: Don Fatima has had diabetes for 10 years. He has been on insulin for the last several years andis managed by his PCP. Lives in [place], [place] with his . States that he [...] Hold] heparin (porcine) infusion 1,600 Units/hr (12/09/21 2629) PRN: [SEP Hold] ipratropium-albuteroL, [SEP Hold] senna-docusate, [...] 5 gm carb ratio for each meal) [facility] diabetes care: Medications - Outpatient treatment regimen recommendations pending based on the hospital course. Monitoring - continue BG tid ac & hs Diet - low fat/low carb diet Exercise - weight-bearing exercise 30 min/day, as tolerated Thank you for allowing us to provide care for your patient Desirae Shaper [facility] Endocrinology Pager [phone] 70 minutes of this 80 minute visit [...] for further details. STEPHANIE Rebolledo 12/08/2021 Pager [phone] documented in this encounter Plan of Treatment Upcoming Encounters Date Type Specialty Care Team Description 05/28/2022 Appointment Cardiology Zulma Dolan MD [facility] [place], [place] [address] (Wo rk) 05/28/2022 Laboratory Appointment Lab 05/28/2022 Office Visit Cardiology Zulma Dolan MD [facility] [place] [address] Liz Poole PA [facility] [place] [address] 06/10/2022 Office Visit Dermatology Laura Scherer MD [facility] [address] [facility] [place], [place] [address] (Wo rk) Scheduled Referrals Name [...] (H) 65 - 199 [facility] mg/dL [facility] Comment: Supplemental ranges: <140 mg/dL before meals <180 mg/dL all other times of the day Specimen Anatomical Collection Method Collection Time Receive d Time (Source) Location / / Volume Laterality Blood 12/12/2021 7:42 AM 7:42 EDT AM EDT Ifeanyi Truong MD POINT OF CARE TEST ORDERABLE S Performing Organization Address City/State/[place] [address] (ABNORMAL) Differential, Automated (12/12/2021 4:51 AM EDT) athologist Signature Neutrophils % 75.4 % [facility] Neutr Abs (ANC) 5.95 1.70 - [facility] 6.10 [facility] x10(3)/[facility] LABORATORY Lymphocytes % 12.2 % [facility] Lymphocytes Abs 1.0 0.9 - 3.2 [facility] x10(3)/[facility] LABORATORY Monocytes % 9.5 % [facility] Monocyte Abs 0.8 0.3 - 0.9 [facility] x10(3)/[facility] LABORATORY Eosinophils % 1.8 % [facility] Eosinophils Abs 0.1 0.0 - 0.4 [facility] x10(3)/[facility] LABORATORY Basophils % 0.5 % [facility] Basophils Abs 0.0 0.0 - 0.1 [facility] x10(3)/[facility] LABORATORY Immature Gran % 0.60 % [...] Address City/State/[place] [address] (ABNORMAL) Hemogram (12/12/2021 4:51 AM EDT) Analysis Performed At Patho logist Time Signature WBC 7.9 4.0 - 9.5 [facility] x10(3)/[facility] LABORATORY RBC 4.19 (L) 4.58 - [facility] 5.54 [facility] x10(6)/[facility] LABORATORY Hemoglobin 12.1 (L) 13.7 - [facility] 16[facility] g/dL [facility] Hematocrit 36.7 (L) 40.5 - [facility] 48.5 % [facility] MCV 87.6 82.9 - [facility] 93.1 fL [facility] MCH 28.9 27.5 - [facility] 32.1 pg [facility] MCHC 33.0 32.0 - [facility] 35.7 g/dL [facility] Platelets 231 145 - 357 [facility] x10(3)/[facility] LABORATORY RDWSD 47.2 (H) 36.0 - [place] 45.0 [facility] LABORATORY RDWCV 14.6 (H) 11.4 - [facility] 13.8 % [facility] MPV 9.5 7.6 - 12.9 [facility] LABORATORY nRBC % Auto 0.0 % [facility] nRBC Abs Auto 0.000 0.000 - [place] 0.000 [facility] x10(3)/[facility] LABORATORY Specimen Anatomical Collection Method Collection Time Receive d Time (Source) Location / / Volume Laterality Blood 12/12/2021 4:51 AM 2 5:06 EDT AM EDT Resulting Agency Comment Spec In Lab Bijan Sun MD HEMATOLOGY ORDERABLES Performing Organization Address City/[facility]/[place] [address] (ABNORMAL) Prothrombin Time (12/12/2021 4:51 AM EDT) P athologist Signature PT 14.9 (H) 9.4 - 12.5 [facility] LABORATORY INR 1.3 [facility] Comment: An INR [...] Cuevas MD HEMATOLOGY ORDERABLES Performing Organization Address City/[facility]/[place] [address] (ABNORMAL) BMP w/fasting Glucose (12/12/2021 4:51 AM EDT) athologist Signature Glucose 152 (H) 65 - 99 [facility] Fasting mg/dL [facility] Comment: ?Fasting* Glucose Interpretive [...] Chloride 105 98 - 107 mmol/L [facility] CO2 21 (L) 22 - 31 mmol/L [facility] Anion Gap 17 (H) 5 - 15 mmol/L [facility] Calcium 8.9 8.5 - 10.5 mg/dL [facility] Estimated GFR 38 (L) >=60 mL/min/1.73 m?? [facility] [...] Address City/State/[place] [address] Magnesium (12/12/2021 4:51 AM EDT) P athologist Signature Magnesium 1.02 0.69 - 1.07 [facility] mmol/L [facility] Specimen Anatomical Collection Method Collection Time Receive d Time (Source) Location / / Volume Laterality Blood 12/12/2021 4:51 AM 2 5:06 EDT AM EDT Resulting Agency Comment Spec In Lab Iker Cuevas MD CHEMISTRY ORDERABLES Performing Organization Address City/[facility]/[place] [address] POCT Glucose (12/12/2021 3:43 AM EDT) P athologist Signature POC Glucose 138 65 - 199 [facility] mg/dL [facility] Comment: Supplemental ranges: <140 mg/dL before meals <180 mg/dL all other times of the day Specimen Anatomical Collection Method Collection Time Receive d Time (Source) Location / / Volume Laterality Blood 12/12/2021 3:43 AM 2 3:43 EDT AM EDT Iker Cuevas MD POINT OF CARE TEST ORDERABLE S Performing Organization Address City/State/[place] [address] POCT Glucose (12/11/2021 11:44 PM EDT) athologist Signature POC Glucose 124 65 - 199 [place] mg/dL [facility] Comment: Supplemental ranges: <140 mg/dL before meals <180 mg/dL all other times of the day Specimen Anatomical Collection Method Collection Time Receive d Time (Source) Location / / Volume Laterality Blood 12/11/2021 11:44 12/11/2021 PM EDT 11:44 PM EDT Iker Cuevas MD POINT OF CARE TEST ORDERABLE S Performing Organization Address City/[facility]/[place] [address] (ABNORMAL) POCT Glucose (12/11/2021 8:12 PM EDT) athologist Signature POC Glucose 200 (H) 65 - 199 [facility] mg/dL [facility] Comment: Supplemental ranges: <140 mg/dL before meals <180 mg/dL all other times of the day Specimen Anatomical Collection Method Collection Time Receive d Time (Source) Location / / Volume Laterality Blood 12/11/2021 8:12 PM 2 8:12 EDT PM EDT Iker Cuevas MD POINT OF CARE TEST ORDERABLE S Performing Organization Address City/[facility]/[place] [address] (ABNORMAL) POCT Glucose (12/11/2021 6:50 PM EDT) athologist Signature POC Glucose 245 (H) 65 - 199 [place] mg/dL [facility] Comment: Supplemental ranges: <140 mg/dL before meals <180 mg/dL all other times of the day Specimen Anatomical Collection Method Collection Time Receive d Time (Source) Location / / Volume Laterality Blood 12/11/2021 6:50 PM 2 6:50 EDT PM EDT Iker Cuevas MD POINT OF CARE TEST ORDERABLE S Performing Organization Address City/State/[place] [address] (ABNORMAL) POCT Glucose (12/11/2021 4:00 PM EDT) P athologist Signature POC Glucose 383 (H) 65 - 199 [facility] mg/dL [facility] Comment: Supplemental ranges: <140 mg/dL before meals <180 mg/dL all other times of the day Specimen Anatomical Collection Method Collection Time Receive d Time (Source) Location / / Volume Laterality Blood 12/11/2021 4:00 PM 4:00 EDT PM EDT Iker Cuevas MD POINT OF CARE TEST ORDERABLE S Performing Organization Address City/[facility]/[place] [address] (ABNORMAL) POCT Glucose (12/11/2021 12:01 PM EDT) athologist Signature POC Glucose 342 (H) 65 - 199 [facility] mg/dL [facility] Comment: Supplemental ranges: <140 mg/dL before meals <180 mg/dL all other times of the day Specimen Anatomical Collection Method Collection Time Receive d Time (Source) Location / / Volume Laterality Blood 12/11/2021 12:01 12/11/2021 PM EDT 12:01 PM EDT Iker Cuevas MD POINT OF CARE TEST ORDERABLE S Performing Organization Address City/[facility]/[place] [address] COVID-19 PCR (12/11/2021 10:13 AM EDT) [facility] gist Method Time Signature SARS-CoV-2 Not Detected Not Detected [facility]BAR[facility] RNA [facility] Comment: This result should be [...] diagnosis of COVID-19 is performed using the [employer] Dianna FRIEND S-CoV-2 Assay as authorized by the FDA Emergency Use Authorization (EUA). This EUA assay is intended for In-vitro Diagnostic (IVD) use with respiratory sp ecimens such as nasopharyngeal swabs collected from individuals during the ac nikolski phase of infection. This assay is performed based on the instructions for use provided by [employer] and additional guidance provided by CDC [...] fact sheets at the following FDA website: https://www.fda.gov/medical-devices/mbjjqsfpkjp-nbdrwvc-0708-amcgt-82-nowqpnuda- jka-ivttacjkwedjxq-ubalooz-devices/yjhlj-uokuefohtlg-wkyy SARS-Cov-2 RNA Source EDUCATION PROFESSOR Swab [facility] Specimen (Source) Anatomical Collection Method Collection Time Re ceived Time Location / / Volume Laterality Nasopharyngeal Swab 12/11/2021 10:13 05/03/2022 AM EDT 11:16 AM EDT Comment: Symptoms->Surveillance Resulting Agency Comment Spec In Lab Iker Cuevas MD MICROBIOLOGY - GENERAL ORDER [place] Performing Organization Address City/[facility] [place] [address] POCT Glucose (12/11/2021 7:34 AM EDT) athologist Signature POC Glucose 198 65 - 199 [facility] mg/dL [facility] Comment: Supplemental ranges: <140 mg/dL before meals <180 mg/dL all other times of the day Specimen Anatomical Collection Method Collection Time Receive d Time (Source) Location / / Volume Laterality Blood 12/11/2021 7:34 AM 2 7:34 EDT AM EDT Iekr Cuevas MD POINT OF CARE TEST ORDERABLE S Performing Organization Address City/[facility]/[place] [address] (ABNORMAL) POCT Glucose (12/11/2021 5:07 AM EDT) P athologist Signature POC Glucose 208 (H) 65 - 199 [facility] mg/dL [facility] LABORATORY Comment: Supplemental ranges: <140 mg/dL before meals <180 mg/dL all other times of the day Specimen Anatomical Collection Method Collection Time Receive d Time (Source) Location / / Volume Laterality Blood 12/11/2021 5:07 AM 2 5:07 EDT AM EDT Iker Cuevas MD POINT OF CARE TEST ORDERABLE S Performing Organization Address City/[facility]/[place] [address] (ABNORMAL) Differential, Automated (12/11/2021 4:28 AM EDT) [facility] Method Time Signature Neutrophils % 79.6 % [facility] LABORATORY Neutr Abs (ANC) 7.01 (H) 1.70 - [facility] 6.10 [facility] x10(3)/[facility] L LABORATORY Lymphocytes % 9.1 % [facility] LABORATORY Lymphocytes Abs 0.8 (L) 0.9 - 3.2 [facility] x10(3)/[facility] LABORATORY Monocytes % 9.2 % [facility] LABORATORY Monocyte Abs 0.8 0.3 - 0.9 [facility] x10(3)/[facility] LABORATORY Eosinophils % 1.3 % [facility] LABORATORY Eosinophils Abs 0.1 0.0 - 0.4 [facility] x10(3)/[facility] LABORATORY Basophils % 0.5 % [facility] LABORATORY Basophils Abs 0.0 0.0 - 0.1 [facility] x10(3)/[facility] LABORATORY Immature Gran % 0.30 % [facility] [...] - 0.04 x10(3)/[facility] LABORATORY Specimen Anatomical Collection Method Collection Time Receive d Time (Source) Location / / Volume Laterality Blood 12/11/2021 4:28 AM 4:37 EDT AM EDT Resulting Agency Comment Spec In Lab Bijan Sun MD HEMATOLOGY ORDERABLES Performing Organization Address City/[facility]/[place] [address] (ABNORMAL) Hemogram (12/11/2021 4:28 AM EDT) Analysis Performed At Patho logist Time Signature WBC 8.8 4.0 - 9.5 [facility] x10(3)/[facility] LABORATORY RBC 4.15 (L) 4.58 - [facility] 5.54 [facility] x10(6)/[facility] LABORATORY Hemoglobin 11.9 (L) 13.7 - [facility] 16.5 g/dL [facility] LABORATORY Hematocrit 36.9 (L) 40.5 - [facility] 48.5 % [facility] MCV 88.9 82.9 - [facility] 93.1 [facility] LABORATORY MCH 28.7 27.5 - [facility] 32.1 pg [facility] LAB[facility]ATORY MCHC 32.2 32.0 - [facility] 35.7 g/dL [facility] LAB[facility] Platelets 211 145 - 357 [facility] x10(3)/[facility] LABORATORY RDWSD 48.3 (H) 36.0 - [facility] 45.0 [facility] LABORATORY RDWCV 14.8 (H) 11.4 - [facility] 13.8 % [facility] LABORATORY MPV 9.6 7.6 - 12.9 [facility] LABORATORY nRBC % Auto 0.0 % [facility] LABORATORY nRBC Abs Auto 0.000 0.000 - [facility] 0.000 [facility] x10(3)/[facility] LABORATORY Specimen Anatomical Collection Method Collection Time Receive d Time (Source) Location / / Volume Laterality Blood 12/11/2021 4:28 AM 2 4:37 EDT AM EDT Resulting Agency Comment Spec In Lab Bijan Sun MD HEMATOLOGY ORDERABLES Performing Organization Address City/State/[place] [address] (ABNORMAL) Prothrombin Time (12/11/2021 4:28 AM EDT) P athologist Signature PT 17.7 (H) 9.4 - 12.5 [facility] LABORATORY INR 1.6 [facility] LABORATORY Comment: An INR [...] Address City/State/[place] [address] (ABNORMAL) BMP w/fasting Glucose (12/11/2021 4:28 AM EDT) athologist Signature Glucose 207 (H) 65 - 99 [facility] Fasting mg/dL [facility] LABORATORY Comment: ?Fasting* Glucose Interpretive [...] Estimated GFR 48 (L) >=60 mL/min/1.73 m?? [facility] [...] Cuevas MD CHEMISTRY ORDERABLES Performing Organization Address City/[facility] [place] [address] Magnesium (12/11/2021 4:28 AM EDT) P athologist Signature Magnesium 1.04 0.69 - 1.07 [facility]/L [facility] LABORATORY Specimen Anatomical Collection Method Collection Time Receive d Time (Source) Location / / Volume Laterality Blood 12/11/2021 4:28 AM 2 4:37 EDT AM EDT Resulting Agency Comment Spec In Lab Iker Cuevas MD CHEMISTRY ORDERABLES Performing Organization Address City/State/ZIP Code Phon e Number [place] [id number] POCT Glucose (12/11/2021 3:58 AM EDT) athologist Signature POC Glucose 189 65 - 199 [facility] mg/dL [facility] LABORATORY Comment: Supplemental ranges: <140 mg/dL before meals <180 mg/dL all other times of the day Specimen Anatomical Collection Method Collection Time Receive d Time (Source) Location / / Volume Laterality Blood 12/11/2021 3:58 AM 2 3:58 EDT AM EDT Iker Cuevas MD POINT OF CARE TEST ORDERABLE S Performing Organization Address City/[facility]/[place] [address] (ABNORMAL) POCT Glucose (12/10/2021 11:45 PM EDT) athologist Signature POC Glucose 205 (H) 65 - 199 [facility] mg/dL [facility] LABOR[facility] Comment: Supplemental ranges: <140 mg/dL before meals <180 mg/dL all other times of the day Specimen Anatomical Collection Method Collection Time Receive d Time (Source) Location / / Volume Laterality Blood 12/10/2021 11:45 12/10/2021 PM EDT 11:45 PM EDT Iker Cuevas MD POINT OF CARE TEST ORDERABLE S Performing Organization Address City/[facility]/[place] [address] (ABNORMAL) POCT Glucose (12/10/2021 7:54 PM EDT) athologist Signature POC Glucose 225 (H) 65 - 199 [facility] mg/dL [facility] Comment: Supplemental ranges: <140 mg/dL before meals <180 mg/dL all other times of the day Specimen Anatomical Collection Method Collection Time Receive d Time (Source) Location / / Volume Laterality Blood 12/10/2021 7:54 PM 2 7:54 EDT PM EDT Iker Cuevas MD POINT OF CARE TEST ORDERABLE S Performing Organization Address City/State/[place] [address] Potassium (12/10/2021 7:46 PM EDT) athologist Signature Potassium 4.2 3.5 - 5.0 [facility] mmol/L [facility] LABORAT[facility] Comment: Please note: ??Patients [...] Cuevas MD CHEMISTRY ORDERABLES Performing Organization Address City/[facility]/[place] [address] (ABNORMAL) Basic Metabolic Panel (non-fasting) (12/10/2021 6:12 PM EDT) athologist Signature Glucose Lvl 246 (H) 65 - 199 [facility] mg/dL [facility] Comment: Diabetes: [...] 107 mmol/L [facility] LABORATORY CO2 22 22 - 31 mmol/L [facility] LABOR[facility] Anion Gap 16 (H) 5 - 15 mmol/L [facility] LABORATORY Calcium 8.3 (L) 8.5 - 10.5 mg/dL [facility] LABORATORY Estimated GFR 49 (L) >=60 mL/min/1.73 m?? [facility] [...] Cuevas MD CHEMISTRY ORDERABLES Performing Organization Address City/[facility]/[place] [address] POCT Glucose (12/10/2021 4:59 PM EDT) P athologist Signature POC Glucose 158 65 - 199 [facility] mg/dL [facility] Comment: Supplemental ranges: <140 mg/dL before meals <180 mg/dL all other times of the day Specimen Anatomical Collection Method Collection Time Receive d Time (Source) Location / / Volume Laterality Blood 12/10/2021 4:59 PM 2 4:59 EDT PM EDT Iker Cuevas MD POINT OF CARE TEST ORDERABLE S Performing Organization Address City/State/[place] [address] (ABNORMAL) POCT Glucose (12/10/2021 12:43 PM EDT) P athologist Signature POC Glucose 241 (H) 65 - 199 [place] mg/dL [facility] LABOR[facility] Comment: Supplemental ranges: <140 mg/dL before meals <180 mg/dL all other times of the day Specimen Anatomical Collection Method Collection Time Receive d Time (Source) Location / / Volume Laterality Blood 12/10/2021 12:43 12/10/2021 PM EDT 12:43 PM EDT Iker Cuevas MD POINT OF CARE TEST ORDERABLE S Performing Organization Address City/State/ZIP Code Phon e Number [facility] [address] EKG 12 Lead (12/10/2021 11:17 AM EDT) Component Value Ref Range Test Analysis Performed Pathologis t Method Time At Signature Ventricular rate 62 BPM MUSE SYSTEM Atrial Rate 62 BPM MUSE SYSTEM P-R Interval 142 ms MUSE SYSTEM QRS Duration 100 ms MUSE SYSTEM Q-T Interval 434 ms MUSE SYSTEM QTC Calculated 440 ms MUSE SYSTEM (Bezet) Calculated P [place] 34 degrees MUSE SYSTEM Calculated R [place] -39 degrees MUSE SYSTEM Calculated T [place] 92 degrees MUSE SYSTEM INTERPRETATION Normal sinus [...] Laterality Volume Narrative 12/10/2021 12:04 PM EDT ?[facility] ? Cardiac Cathete rization/Intervention Report ? Patient Name: Don Fatima. ? Procedure Date: 12/10/2021 ? A #: [id number] ? Primary Physician: Nobles, Vitaliy P ? Case #: [id number] ? File Name: [id number] ? Catheterization Order Number: [id number] ? [facility] ? Final Report [place], [place] ? Patient Name: ? Don E. Stewa rt ? ID#: ?[id number] ? : ?1945 ? Procedure Date: ? December 10, 2021 ? Case #: ? [id number] ? Room: ? 1 ? Case Physician: [...] was ?designated as ASA Class III. e [facility] clinical frailty scale is 5: Mildly [...] procedure was Urgent. The indication for ?the mini lab operator visit is ACS great er than [...] ?3.75 guiding catheter and a 3.5 Fr [facility] [place] 20 Mhz using Manual ?pullback. ??Imaging [...] ?3.75 guiding catheter and a 3.5 Fr [facility] [place] 20 Mhz using Manual ?pullback. ??Imaging [...] ?modification of this regimen. C [facility] Interventional Cardiology for ?questions. ?The [...] Procedure Note Vitaliy Nobles MD - 01/14/2022 [facility] Cardiac Catheterization/Intervention Re port Patient Name: Kushal Don VedaMadiha Procedure Date: 12/10/2021 A #: [id number] Primary Physician: Vitaliy Nobles Case #: [id number] File Name: [id number] Catheterization Order Number: [id number] [facility] Exhaust Equipment Operator [facility] Final Report [place], [place] Patient Name: Don Fatima ID#: [id number] : 1945 Procedure Date: December 10, 2021 Case #: [id number] Room: 1 Case Physician: Vitaliy Nobles M.D. Start: 08:41 Fellow: [place] M.D. Admission: Bijan Sun M.D. Discharge: 2 Referring Physician: STEVE Grvaes RN Procedures: * Coronary Angiography * Left [...] e was Urgent. The indication for the mini lab operator visit is ACS greater than 24 [...] and a 3.5 Fr [facility] [place] 20 Mhz using Manual pullback. Imaging [...] and a 3.5 Fr [facility] [place] 20 Mhz using Manual pullback. Imaging [...] [facility] indication for the procedure was N MARKIE-ACS. [...] require modification of this regimen. Consult D [facility] Interventional Cardiology [...] (H) 65 - 199 [facility] mg/dL [facility] LABORATORY Comment: Supplemental ranges: <140 mg/dL before meals <180 mg/dL all other times of the day Specimen Anatomical Collection Method Collection Time Receive d Time (Source) Location / / Volume Laterality Blood 12/10/2021 10:30 12/10/2021 AM EDT 10:30 AM EDT Iker Cuevas MD POINT OF CARE TEST ORDERABLE S Performing Organization Address City/State/[place] [address] (ABNORMAL) POCT Glucose (12/10/2021 9:48 AM EDT) athologist Signature POC Glucose 279 (H) 65 - 199 [facility] mg/dL [facility] LABOR[facility]ORY Comment: Supplemental ranges: <140 mg/dL before meals <180 mg/dL all other times of the day Specimen Anatomical Collection Method Collection Time Receive d Time (Source) Location / / Volume Laterality Blood 12/10/2021 9:48 AM 9:48 EDT AM EDT Iker Cuevas MD POINT OF CARE TEST ORDERABLE S Performing Organization Address City/State/[place] [address] (ABNORMAL) POCT Glucose (12/10/2021 9:07 AM EDT) P athologist Signature POC Glucose 268 (H) 65 - 199 [facility] mg/dL [facility] LABOR[facility] Comment: Supplemental ranges: <140 mg/dL before meals <180 mg/dL all other times of the day Specimen Anatomical Collection Method Collection Time Receive d Time (Source) Location / / Volume Laterality Blood 12/10/2021 9:07 AM 9:07 EDT AM EDT Iker Cuevas MD POINT OF CARE TEST ORDERABLE S Performing Organization Address City/State/[place] [address] (ABNORMAL) Point of Care Blood Gas Historical (12/10/2021 9:04 AM EDT) Patholo gist Method Time Signature POC pH 7.40 7.35 - [facility] 7.45 [facility] LABORATORY POC PCO2 40 35 - 45 [facility] mmHg [facility] LABORATORY POC PO2 63 (L) 85 - 104 [facility] LABORATORY POC Base Excess 0.0 -3.0 - 3.0 [facility] K mmol/L [facility] LABORATORY POC HCO3 24.8 20.0 - [facility] 26.0 [facility] mmol/[facility] LABORATORY POC Sodium 143 135 - 145 [facility] mmol/L [facility] LABORATORY POC Potassium 3.7 3.5 - 5.0 [facility] mmol/L [facility] LABORAT[facility] POC Ionized Ca 1.07 (L) 1.15 - [facility] 1.33 [facility] mmol/L HOSPITAL LABORATORY POC Hematocrit 30.0 (L) 40.0 - [facility] 51.0 % [facility] LABORATORY POC Calc Hgb 10.2 (L) 13.7 - [facility] 17.5 g/dL [facility] Comment: The calculation of hemoglobin f rom hematocrit assumes a normal MCHC. POC Bgas Loc CC LAB [facility] LABORATORY Specimen Anatomical Collection Method Collection Time Receive d Time (Source) Location / / Volume Laterality Blood 12/10/2021 9:04 AM 2 EDT 12:00 PM EDT Ifeanyi Truong MD CHEMISTRY ORDERABLES Performing Organization Address City/[facility]/[place] [address] (ABNORMAL) POCT Glucose (12/10/2021 7:19 AM EDT) athologist Signature POC Glucose 274 (H) 65 - 199 [facility] mg/dL [facility]ORATORY Comment: Supplemental ranges: <140 mg/dL before meals <180 mg/dL all other times of the day Specimen Anatomical Collection Method Collection Time Receive d Time (Source) Location / / Volume Laterality Blood 12/10/2021 7:19 AM 2 7:19 EDT AM EDT Iker Cuevas MD POINT OF CARE TEST ORDERABLE S Performing Organization Address City/[facility]/[place] [address] Heparin (unfractionated) Level (12/10/2021 4:25 AM EDT) athologist Signature Heparin UFH 0.69 IU/mL [facility] LABORATORY Comment: Heparin (anti-Xa) levels should [...] Address City/State/ZIP Code Phon e Number [address] (ABNORMAL) Differential, Automated (12/10/2021 4:25 AM EDT) [facility] Method Time Signature Neutrophils % 79.8 % [facility] LABORATORY Neutr Abs (ANC) 7.47 (H) 1.70 - [facility] 6.10 [facility] x10(3)/[facility] LABORATORY Lymphocytes % 10.6 % [facility] LABORATORY Lymphocytes Abs 1.0 0.9 - 3.2 [facility] x10(3)/[facility] LABORATORY Monocytes % 8.4 % [facility] LABORATORY Monocyte Abs 0.8 0.3 - 0.9 [facility] x10(3)/[facility] LABORATORY Eosinophils % 0.6 % [facility] LABORATORY Eosinophils Abs 0.1 0.0 - 0.4 [facility] x10(3)/[facility] LABORATORY Basophils % 0.2 % [facility] LABORATORY Basophils Abs 0.0 0.0 - 0.1 [facility] x10(3)/[facility] LABORATORY Immature Gran % 0.40 % [facility] [...] 0.00 - 0.04 x10(3)/mcL [facility] LABORATORY Specimen Anatomical Collection Method Collection Time Receive d Time (Source) Location / / Volume Laterality Blood 12/10/2021 4:25 AM 4:34 EDT AM EDT Resulting Agency Comment Spec In Lab Morgan BROWN HEMATOLOGY ORDERABLES Performing Organization Address City/[facility]/ZIP Code Phon e Number [address] (ABNORMAL) Hemogram (12/10/2021 4:25 AM EDT) Analysis Performed At Patho logist Time Signature WBC 9.4 4.0 - 9.5 [facility] x10(3)/[facility] LABORATORY RBC 3.81 (L) 4.58 - [facility] 5.54 [facility] x10(6)/[facility] LABORATORY Hemoglobin 11.1 (L) 13.7 - [facility] 16.5 g/dL [facility] LABORATORY Hematocrit 34.0 (L) 40.5 - [facility] 48.5 % [facility]ORATORY MCV 89.2 82.9 - [facility] 93[facility]1 [facility] LABORATORY MCH 29.1 27.5 - [facility] 32.1 pg [facility] LABORATORY MCHC 32.6 32.0 - [facility] 35.7 g/dL [facility] LABORATORY Platelets 183 145 - 357 [facility] x10(3)/[facility] LABORATORY RDWSD 49.9 (H) 36.0 - [facility] 45.0 [facility] LABORATORY RDWCV 15.2 (H) 11.4 - [facility] 13.8 % [facility] LABORATORY MPV 9.8 7.6 - 12.9 [facility] LABORATORY nRBC % Auto 0.0 % [facility] LABORATORY nRBC Abs Auto 0.000 0.000 - [facility] 0.000 [facility] x10(3)/[facility] LABORATORY Specimen Anatomical Collection Method Collection Time Receive d Time (Source) Location / / Volume Laterality Blood 12/10/2021 4:25 AM 2 4:34 EDT AM EDT Resulting Agency Comment Spec In Lab Morgan BROWN HEMATOLOGY ORDERABLES Performing Organization Address City/State/[place] [address] (ABNORMAL) Prothrombin Time (12/10/2021 4:25 AM EDT) P athologist Signature PT 20.0 (H) 9.4 - 12.5 [facility] LABORATORY INR 1.7 [facility] LABORATORY Comment: An INR [...] City/State/ZIP Code Phon e Number [place] [id number] Drive (ABNORMAL) BMP w/fasting Glucose (12/10/2021 4:25 AM EDT) athologist Signature Glucose 210 (H) 65 - 99 [facility] Fasting mg/dL [facility] LABORATORY Comment: ?Fasting* Glucose Interpretive [...] Estimated GFR 44 (L) >=60 mL/min/1.73 m?? [facility] [...] Address City/State/[place] [address] Magnesium (12/10/2021 4:25 AM EDT) P athologist Signature Magnesium 0.95 0.69 - 1.07 [facility]/L [facility] LABORATORY Specimen Anatomical Collection Method Collection Time Receive d Time (Source) Location / / Volume Laterality Blood 12/10/2021 4:25 AM 2 4:34 EDT AM EDT Resulting Agency Comment Spec In Lab Iker Cuevas MD CHEMISTRY ORDERABLES Performing Organization Address City/[facility]/[place] [address] POCT Glucose (12/10/2021 1:58 AM EDT) athologist Signature POC Glucose 164 65 - 199 [facility] mg/dL [facility] LABORATORY Comment: Supplemental ranges: <140 mg/dL before meals <180 mg/dL all other times of the day Specimen Anatomical Collection Method Collection Time Receive d Time (Source) Location / / Volume Laterality Blood 12/10/2021 1:58 AM 2 1:58 EDT AM EDT Iker Cuevas MD POINT OF CARE TEST ORDERABLE S Performing Organization Address City/[facility]/[place] [address] (ABNORMAL) POCT Glucose (12/09/2021 9:02 PM EDT) athologist Signature POC Glucose 313 (H) 65 - 199 [facility] mg/dL [facility] LABORATORY Comment: Supplemental ranges: <140 mg/dL before meals <180 mg/dL all other times of the day Specimen Anatomical Collection Method Collection Time Receive d Time (Source) Location / / Volume Laterality Blood 12/09/2021 9:02 PM 2 9:02 EDT PM EDT Iker Cuevas MD POINT OF CARE TEST ORDERABLE S Performing Organization Address City/[facility]/[place] [address] Heparin (unfractionated) Level (12/09/2021 7:30 PM EDT) athologist Signature Heparin UFH 0.48 IU/mL [facility] LABORATORY Comment: Heparin (anti-Xa) levels should [...] Address City/State/[place] [address] (ABNORMAL) Basic Metabolic Panel (non-fasting) (12/09/2021 7:30 PM EDT) athologist Signature Glucose Lvl 372 (H) 65 - 199 [facility] mg/dL [facility] LABORATORY Comment: Diabetes: [...] 107 mmol/L [facility] LABORATORY CO2 22 22 - 31 mmol/L [facility] LABORATORY Anion Gap 14 5 - 15 mmol/L [facility] LABORATORY Calcium 8.1 (L) 8.5 - 10.5 mg/dL [facility] LABORATORY Estimated GFR 37 (L) >=60 mL/min/1.73 m?? [facility] [...] Address City/State/[place] [address] (ABNORMAL) POCT Glucose (12/09/2021 6:34 PM EDT) P athologist Signature POC Glucose 408 (H) 65 - 199 [facility]/dL [facility] LABORATORY Comment: Supplemental ranges: <140 mg/dL before meals <180 mg/dL all other times of the day Specimen Anatomical Collection Method Collection Time Receive d Time (Source) Location / / Volume Laterality Blood 12/09/2021 6:34 PM 2 6:34 EDT PM EDT Iker Cuevas MD POINT OF CARE TEST ORDERABLE S Performing Organization Address City/[facility]/[place] [address] (ABNORMAL) POCT Glucose (12/09/2021 6:32 PM EDT) P athologist Signature POC Glucose 356 (H) 65 - 199 [facility] mg/dL [facility] LAB[facility] Comment: Supplemental ranges: <140 mg/dL before meals <180 mg/dL all other times of the day Specimen Anatomical Collection Method Collection Time Receive d Time (Source) Location / / Volume Laterality Blood 12/09/2021 6:32 PM 2 6:32 EDT PM EDT Iker Cuevas MD POINT OF CARE TEST ORDERABLE S Performing Organization Address City/State/[place] [address] (ABNORMAL) POCT Glucose (12/09/2021 4:19 PM EDT) athologist Signature POC Glucose 347 (H) 65 - 199 [facility] mg/dL [facility] LABORATORY Comment: Supplemental ranges: <140 mg/dL before meals <180 mg/dL all other times of the day Specimen Anatomical Collection Method Collection Time Receive d Time (Source) Location / / Volume Laterality Blood 12/09/2021 4:19 PM 2 4:19 EDT PM EDT Iker Cuevas MD POINT OF CARE TEST ORDERABLE S Performing Organization Address City/[facility]/[place] [address] Heparin (unfractionated) Level (12/09/2021 1:29 PM EDT) athologist Signature Heparin UFH 0.42 IU/mL [facility] LABORATORY Comment: Heparin (anti-Xa) levels should [...] Address City/State/[place] [address] (ABNORMAL) POCT Glucose (12/09/2021 12:02 PM EDT) P athologist Signature POC Glucose 235 (H) 65 - 199 [facility] mg/dL [facility] LAB[facility] Comment: Supplemental ranges: <140 mg/dL before meals <180 mg/dL all other times of the day Specimen Anatomical Collection Method Collection Time Receive d Time (Source) Location / / Volume Laterality Blood 12/09/2021 12:02 12/09/2021 PM EDT 12:02 PM EDT Iker Ceuvas MD POINT OF CARE TEST ORDERABLE S Performing Organization Address City/[facility]/[place] [address] (ABNORMAL) POCT Glucose (12/09/2021 9:44 AM EDT) P athologist Signature POC Glucose 214 (H) 65 - 199 [facility] mg/dL [facility] Comment: Supplemental ranges: <140 mg/dL before meals <180 mg/dL all other times of the day Specimen Anatomical Collection Method Collection Time Receive d Time (Source) Location / / Volume Laterality Blood 12/09/2021 9:44 AM 9:44 EDT AM EDT Iker Cuevas MD POINT OF CARE TEST ORDERABLE S Performing Organization Address City/[facility]/[place] [address] EKG 12 Lead (12/09/2021 7:57 AM EDT) Component Value Ref Range Test Analysis Performed Pathologis t Method Time At Signature Ventricular rate 101 BPM MUSE SYSTEM Atrial Rate 101 BPM MUSE SYSTEM P-R Interval 150 ms MUSE SYSTEM QRS Duration 112 ms MUSE SYSTEM Q-T Interval 364 ms MUSE SYSTEM QTC Calculated 471 ms MUSE SYSTEM (Bezet) Calculated P [place] 59 degrees MUSE SYSTEM Calculated R [place] -42 degrees MUSE SYSTEM Calculated T [place] 102 degrees MUSE SYSTEM INTERPRETATION Sinus tachycardia Occasional Premature ventricular com plexes MUSE SYSTEM Left axis deviation 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) Abnormal ECG When compared with ECG of 08-DEC-2021 16:40, Premature ventricular complexes are now Present Confirmed by MD Fernandez Danette ([id number]) on 12/10/2021 4:55:06 PM Specimen Anatomical Collection Method Collection Time Receive d Time (Source) Location / / Volume Laterality 12/09/2021 7:57 AM 2 4:55 EDT PM EDT Iker Cuevas MD ECG ORDERABLES Performing Organization Address City/State/ZIP Code Phon e Number MUSE SYSTEM (ABNORMAL) POCT Glucose (12/09/2021 7:28 AM EDT) P athologist Signature POC Glucose 263 (H) 65 - 199 [facility] mg/dL [facility] Comment: Supplemental ranges: <140 mg/dL before meals <180 mg/dL all other times of the day Specimen Anatomical Collection Method Collection Time Receive d Time (Source) Location / / Volume Laterality Blood 12/09/2021 7:28 AM 2 7:28 EDT AM EDT Iker Cuevas MD POINT OF CARE TEST ORDERABLE S Performing Organization Address City/State/[place] [address] (ABNORMAL) Hemoglobin A1c (12/09/2021 [...] Mellitus, Diabetes Care 2013; 36: Suppl. 1, P89-95 Est Avg Gluc See note mg/dL [facility] LABORATORY Comment: Estimated Average Glucose not [...] into estimated average glucose values. ??Diabetes Care 2008:31(8):1720-8888. Specimen Anatomical Collection Method Collection Time Receive d Time (Source) Location / / Volume Laterality Blood Venous Draw / 12/09/2021 6:18 AM 12/10/19 22 Unknown EDT 12:24 PM EDT Resulting Agency Comment Spec In Lab Migdalia BROWN CHEMISTRY ORDERABLES Performing Organization Address City/State/[place] [address] (ABNORMAL) Prothrombin Time (12/09/2021 6:18 AM EDT) athologist Signature PT 26.6 (H) 9.4 - 12.5 [facility] LABORATORY INR 2.3 [facility] LABORATORY Comment: An INR [...] Migdalia BROWN HEMATOLOGY ORDERABLES Performing Organization Address City/[facility]/ZIP Code Phon e Number [address] Heparin (unfractionated) Level (12/09/2021 6:18 AM EDT) P athologist Signature Heparin UFH 0.24 IU/mL [facility] LABORATORY Comment: Heparin (anti-Xa) levels should [...] Cuevas MD HEMATOLOGY ORDERABLES Performing Organization Address City/[facility]/[place] [address] (ABNORMAL) Differential, Automated (12/09/2021 6:18 AM EDT) Patholo gist Method Time Signature Neutrophils % 91.5 % [facility]ORATORY Neutr Abs (ANC) 15.78 (H) 1.70 - [facility] 6.10 [facility] x10(3)/[facility] L LABORATORY Lymphocytes % 2.9 % [facility] LABORATORY Lymphocytes Abs 0.5 (L) 0.9 - 3.2 [facility] x10(3)/[facility] LABORATORY Monocytes % 4.9 % [facility]OR[facility]ORY Monocyte Abs 0.8 0.3 - 0.9 [facility] x10(3)/[facility] LABORATORY Eosinophils % 0.0 % [facility] Eosinophils Abs 0.0 0.0 - 0.4 [facility] x10(3)/[facility] LABORATORY Basophils % 0.2 % [facility] Basophils Abs 0.0 0.0 - 0.1 [facility] x10(3)/[facility] LABORATORY Immature Gran % 0.50 % [facility] [...] Address City/State/[place] [address] (ABNORMAL) Hemogram (12/09/2021 6:18 AM EDT) Analysis Performed At Patho logist Time Signature WBC 17.2 (H) 4.0 - 9.5 [facility] x10(3)/[facility] LABORATORY RBC 4.32 (L) 4.58 - [facility] 5.54 [facility] x10(6)/[facility] LABORATORY Hemoglobin 12.6 (L) 13.7 - [facility] 16.5 g/dL [facility] Hematocrit 38.9 (L) 40.5 - [facility] 48.5 % [facility] MCV 90.0 82.9 - [facility] 93.1 [facility] LABORATORY MCH 29.2 27.5 - [facility] 32.1 pg [facility] MCHC 32.4 32.0 - [facility] 35.7 g/dL [facility] Platelets 193 145 - 357 [facility] x10(3)/[facility] LABORATORY RDWSD 50.4 (H) 36.0 - [facility] 45.0 [facility] LABORATORY RDWCV 15.2 (H) 11.4 - [facility] 13.8 % [facility] LAB[facility]AT[facility] MPV 9.5 7.6 - 12.9 [facility] LABORATORY nRBC % Auto 0.0 % [facility]AT[facility] nRBC Abs Auto 0.000 0.000 - [facility] 0.000 [facility] x10(3)/[facility] LABORATORY Specimen Anatomical Collection Method Collection Time Receive d Time (Source) Location / / Volume Laterality Blood 12/09/2021 6:18 AM 6:33 EDT AM EDT Resulting Agency Comment Spec In Lab Morgan BROWN HEMATOLOGY ORDERABLES Performing Organization Address City/State/[place] [address] Lipid Panel (Reflex Direct LDL) (12/09/2021 6:18 AM EDT) P athologist Signature Chol, Total 105 mg/dL [facility]OR[facility] Comment: Lower Risk: <200 mg/dL Average Risk: 200-239 mg/dL Higher Risk: >bx=921 mg/dL Triglycerides 133 mg/dL [facility] LABORATORY Comment: Average Risk/Lower Risk: <150 mg/dL Borderline High Risk: 150-199 mg/dL High Risk: 200-499 mg/dL Very High Risk: >lx=897 mg/dL HDL 42 mg/dL [facility] LABORATORY Comment: Males: ?? Higher Risk: <40 mg/dL Females: ?? Higher Risk: <50 mg/dL LDL Cholesterol 36 mg/dL [facility] Comment: Lowest Risk: <100 mg/dL Lower Risk: 100-129 mg/dL Borderline High Risk: 130-159 mg/dL High Risk: 160-189 mg/dL Very High Risk: >yy=888 mg/dL Chol/HDL Ratio 2.5 ratio [facility] Lipid Interpretation See Note [facility] LABORATORY Comment: Lipid management should be guided by a p atient? s ASCVD risk, goals and preferences. ACC/AHA Guidelines recommend high intens ity statin if clinical ASCVD or LDL greater than or equal to 190 mg/dL. [email or web address] Adults aged 40-75 with LDL 70-189 mg/dL should have their 10 year ASCVD risk estimated with the ACC/AHA ASCVD risk es timator http://tools.acc.org/UCZKZ-Optq-Fxdkmkdt r/ Statin should be discussed if risk [...] Address City/State/[place] [address] TSH (12/09/2021 6:18 AM EDT) athologist Signature TSH 1.60 0.27 - 4.20 [facility] mcIU/mL [facility] Comment: Reference Interval (mcIU/mL): Females: ??First Trimester: 0.23-3.88 ??Second Trimester: 0.22-3.90 ??Third Trimester: 0.44-4.66 Specimen Anatomical Collection Method Collection Time Receive d Time (Source) Location / / Volume Laterality Blood 12/09/2021 6:18 AM 2 6:33 EDT AM EDT Resulting Agency Comment Spec In Lab Iker Cuevas MD CHEMISTRY ORDERABLES Performing Organization Address City/[facility]/[place] [address] Hepatic Function Panel (12/09/2021 6:18 AM EDT) athologist Signature Total Protein 7.3 6.1 - 8.0 [facility] g/dL [facility] Albumin 4.2 3.2 - 5.2 [facility] RYAN g/dL [facility] AST 25 0 - 39 [facility] RYAN unit/L [facility] ALT 15 0 - 55 [facility] unit/L [facility] Alk Phos 75 40 - 130 [facility] unit/L [facility] Total 1.1 0.2 - 1.3 [facility] Bilirubin mg/dL [facility] Bili, Direct 0.2 0.0 - 0.3 [place] mg/dL [facility] Specimen Anatomical Collection Method Collection Time Receive d Time (Source) Location / / Volume Laterality Blood 12/09/2021 6:18 AM 2 6:33 EDT AM EDT Resulting Agency Comment Spec In Lab Iker Cuevas MD CHEMISTRY ORDERABLES Performing Organization Address City/[facility] [place] [address] (ABNORMAL) BMP w/fasting Glucose (12/09/2021 6:18 AM EDT) P athologist Signature Glucose 235 (H) 65 - 99 [facility] Fasting mg/dL [facility] Comment: ?Fasting* Glucose Interpretive [...] Estimated GFR 52 (L) >=60 mL/min/1.73 m?? [facility] [...] Address City/State/ZIP Code Phon e Number [address] Magnesium (12/09/2021 6:18 AM EDT) P athologist Signature Magnesium 0.81 0.69 - 1.07 [facility] mmol/L [facility] LABOR[facility]ORY Specimen Anatomical Collection Method Collection Time Receive d Time (Source) Location / / Volume Laterality Blood 12/09/2021 6:18 AM 2 6:33 EDT AM EDT Resulting Agency Comment Spec In Lab Iker Cuevas MD CHEMISTRY ORDERABLES Performing Organization Address City/State/[place] [address] (ABNORMAL) Troponin (12/09/2021 6:18 AM EDT) athologist Signature Troponin-T 1.13 (H) 0.00 - [facility] 0.00 ng/mL [facility] Comment: The 99th percentile [...] additional sample may be indicated. Reference: [place] Definition of Myocardial Infarction. Journal of the [employer] College [employer] Cardiology 2012;60:1581-98 Specimen Anatomical Collection Method Collection Time Receive d Time (Source) Location / / Volume Laterality Blood 12/09/2021 6:18 AM 6:33 EDT AM EDT Resulting Agency Comment Spec In Lab Iker Cuevas MD CHEMISTRY ORDERABLES Performing Organization Address City/State/ZIP Code Phon e Number [place] [id number] XR Chest One View [...] who have questions please contact the health intensive care medicine specialist that requested your imaging first. ? Narrative [...] ho have questions please contact the health intensive care medicine specialist that requested your imaging first. Amber Sanches MD IMG DX ORDERABLES (ABNORMAL) BLOOD GAS 2 ARTERIAL (12/09/2021 5:14 AM EDT) Analysis Performed At Path logis Time Signature pH Art 7.43 7.35 - [facility] 7.45 [facility]ORATORY pCO2 Art 36 35 - 45 [facility] LABORATORY pO2 Art 67 (L) 85 - 104 [facility] LABORATORY HCO3 Art 23.4 20.0 - [facility] 26.0 [facility] mmol/L [facility] LABORATORY BE Art -0.9 -3.0 - 3.0 [facility] mmol/L [facility] Hgb Blood Gas 13.2 (L) 13.7 - [facility] 16.5 g/dL [facility] O2HB Art 91.3 (L) 94.0 - [facility] 97.0 % [facility] COHB Art 0.4 % [facility] Comment: Nonsmokers: 0.5-1.5% COHB Smokers: Variable, but usually less than 10% Toxic: 20-30% COHB Lethal: Greater than 60% COHB METHB Art 0.4 <=1.5 % [facility]OR[facility] Na Whole Blood 138 135 - 145 mmol/L [facility] K Whole Blood 4.1 3.5 - 5.0 mmol/L [facility] Comment: Please note: Patients with WBC >100,000 may have falsely elevated Potassium levels. Contact the Clinical Chemistry L aboratory if there are any questions. ICa Whole Blood 1.09 (L) 1.15 - 1.33 mmol/L [facility] LABOR[facility] Comment: Note: ??Total bilirubin higher than 20 m g/dL may lead to falsely low ionized calcium. CL Whole Blood 104 98 - 107 mmol/L [facility] LABORATORY Gluc Whole Bld 223 (H) 65 - 199 mg/dL [facility] LABORATORY Comment: Diabetes: >=200 mg/dL plus symp toms. Lactate WB 2.7 (H) 0.5 - 2.2 mmol/L [facility] LABORATORY FIO2 Art 35 % [facility]OR[facility] Flow Art 8.0 LPM [facility] PF Ratio Art [address] [facility] LABORATORY Specimen Anatomical Collection Method Collection Time Receive d Time (Source) Location / / Volume Laterality Blood 12/09/2021 5:14 AM 5:14 EDT AM EDT Iker Cuevas MD CHEMISTRY ORDERABLES Performing Organization Address City/State/[place] [address] POCT Glucose (12/09/2021 4:46 AM EDT) athologist Signature POC Glucose 198 65 - 199 [facility] mg/dL [facility] Comment: Supplemental ranges: <140 mg/dL before meals <180 mg/dL all other times of the day Specimen Anatomical Collection Method Collection Time Receive d Time (Source) Location / / Volume Laterality Blood 12/09/2021 4:46 AM 2 4:46 EDT AM EDT Iker Cuevas MD POINT OF CARE TEST ORDERABLE S Performing Organization Address City/State/[place] [address] (ABNORMAL) POCT Glucose (12/09/2021 3:01 AM EDT) athologist Signature POC Glucose 225 (H) 65 - 199 [facility] mg/dL [facility] Comment: Supplemental ranges: <140 mg/dL before meals <180 mg/dL all other times of the day Specimen Anatomical Collection Method Collection Time Receive d Time (Source) Location / / Volume Laterality Blood 12/09/2021 3:01 AM 2 3:01 EDT AM EDT Iker Cuevas MD POINT OF CARE TEST ORDERABLE S Performing Organization Address City/State/[place] [address] (ABNORMAL) POCT Glucose (12/08/2021 10:55 PM EDT) athologist Signature POC Glucose 327 (H) 65 - 199 [facility] mg/dL [facility] Comment: Supplemental ranges: <140 mg/dL before meals <180 mg/dL all other times of the day Specimen Anatomical Collection Method Collection Time Receive d Time (Source) Location / / Volume Laterality Blood 12/08/2021 10:55 12/08/2021 PM EDT 10:55 PM EDT Iker Cuevas MD POINT OF CARE TEST ORDERABLE S Performing Organization Address City/State/[place] [address] Heparin (unfractionated) Level (12/08/2021 10:03 PM EDT) P athologist Signature Heparin UFH 0.18 IU/mL [facility] LABORATORY Comment: Heparin (anti-Xa) levels should [...] Address City/State/[place] [address] (ABNORMAL) Troponin (12/08/2021 10:03 PM EDT) athologist Signature Troponin-T 0.92 (H) 0.00 - [facility] 0.00 ng/mL [facility] Comment: The 99th percentile [...] additional sample may be indicated. Reference: [place] Definition of Myocardial Infarction. Journal of the [employer] College of Cardiology 2012;60:1581-98 Specimen Anatomical Collection Method Collection Time Receive d Time (Source) Location / / Volume Laterality Blood 12/08/2021 10:03 12/08/2021 PM EDT 10:31 PM EDT Resulting Agency Comment Spec In Lab Iker Cuevas MD CHEMISTRY ORDERABLES Performing Organization Address City/[facility]/[place] [address] (ABNORMAL) POCT Glucose (12/08/2021 8:22 PM EDT) athologist Signature POC Glucose 429 (H) 65 - 199 [facility] RYAN mg/dL [facility] Comment: Supplemental ranges: <140 mg/dL before meals <180 mg/dL all other times of the day Specimen Anatomical Collection Method Collection Time Receive d Time (Source) Location / / Volume Laterality Blood 12/08/2021 8:22 PM 2 8:22 EDT PM EDT Iker Cuevas MD POINT OF CARE TEST ORDERABLE S Performing Organization Address City/[facility]/[place] [address] (ABNORMAL) POCT Glucose (12/08/2021 7:06 PM EDT) P athologist Signature POC Glucose 442 (H) 65 - 199 [place] mg/dL [facility] Comment: Supplemental ranges: <140 mg/dL before meals <180 mg/dL all other times of the day Specimen Anatomical Collection Method Collection Time Receive d Time (Source) Location / / Volume Laterality Blood 12/08/2021 7:06 PM 2 7:06 EDT PM EDT Iker Cuevas MD POINT OF CARE TEST ORDERABLE S Performing Organization Address City/[facility]/[place] [address] Magnesium (12/08/2021 6:02 PM EDT) athologist Signature Magnesium 0.86 0.69 - 1.07 [facility] mmol/L [facility] LABOR[facility] Specimen Anatomical Collection Method Collection Time Receive d Time (Source) Location / / Volume Laterality Blood 12/08/2021 6:02 PM 6:36 EDT PM EDT Resulting Agency Comment Spec In Lab Iker Cuevas MD CHEMISTRY ORDERABLES Performing Organization Address City/State/ZIP Code Phon e Number [address] (ABNORMAL) Basic Metabolic Panel (non-fasting) (12/08/2021 6:02 PM EDT) athologist Signature Glucose Lvl 392 (H) 65 - 199 [facility] mg/dL [facility] Comment: Diabetes: [...] 107 mmol/L [facility] CO2 20 (L) 22 - 31 mmol/L [facility] Anion Gap 16 (H) 5 - 15 mmol/L [facility] LABORATORY Calcium 8.6 8.5 - 10.5 mg/dL [facility] LABORATORY Estimated GFR 47 (L) >=60 mL/min/1.73 m?? [facility] [...] Address City/State/[place] [address] (ABNORMAL) Differential, Automated (12/08/2021 6:02 PM EDT) [facility] gist Method Time Signature Neutrophils % 89.5 % [facility] LABORATORY Neutr Abs (ANC) 13.97 (H) 1.70 - [facility] 6.10 [facility] x10(3)/[facility] LABORATORY Lymphocytes % 3.7 % [facility]OR[facility]ORY Lymphocytes Abs 0.6 (L) 0.9 - 3.2 [facility] x10(3)/[facility] LABORATORY Monocytes % 6.1 % [facility] Monocyte Abs 1.0 (H) 0.3 - 0.9 [facility] x10(3)/[facility] LABORATORY Eosinophils % 0.0 % [facility] Eosinophils Abs 0.0 0.0 - 0.4 [facility] x10(3)/[facility] LABORATORY Basophils % 0.2 % [facility] Basophils Abs 0.0 0.0 - 0.1 [facility] x10(3)/[facility] LABORATORY Immature Gran % 0.50 % [facility] [...] Address City/State/[place] [address] (ABNORMAL) Hemogram (12/08/2021 6:02 PM EDT) Analysis Performed At Patho logist Time Signature WBC 15.6 (H) 4.0 - 9.5 [facility] LABORATORY RBC 4.05 (L) 4.58 - [facility] RYAN 5.54 [facility] x10(6)/[facility] LABORATORY Hemoglobin 11.8 (L) 13.7 - [facility] 16.5 g/dL [facility] Hematocrit 35.8 (L) 40.5 - [facility] 48.5 % [facility] MCV 88.4 82.9 - [facility] 93.1 [facility] LABORATORY MCH 29.1 27.5 - [facility] RYAN 32.1 pg [facility]AT[facility] MCHC 33.0 32.0 - [facility] 35.7 g/dL [facility] Platelets 178 145 - 357 [facility] LABORATORY RDWSD 49.3 (H) 36.0 - [facility] RYAN 45.0 [facility] LABORATORY RDWCV 15.1 (H) 11.4 - [facility] RYAN 13.8 % [facility] LABORATORY MPV 10.4 7.6 - 12.9 [facility] LABORATORY nRBC % Auto 0.0 % [facility] LABORATORY nRBC Abs Auto 0.000 0.000 - [facility] 0.000 [facility] x10(3)/[facility] LABORATORY Specimen Anatomical Collection Method Collection Time Receive d Time (Source) Location / / Volume Laterality Blood 12/08/2021 6:02 PM 2 6:36 EDT PM EDT Resulting Agency Comment Spec In Lab Morgan BROWN HEMATOLOGY ORDERABLES Performing Organization Address City/State/ZIP Code Phon e Number [place] [address] (ABNORMAL) Troponin (12/08/2021 6:02 PM EDT) athologist Signature Troponin-T 0.89 (H) 0.00 - [facility] 0.00 ng/mL [facility] Comment: The 99th percentile [...] additional sample may be indicated. Reference: [place] Definition of Myocardial Infarction. Journal of the [employer] College of Cardiology 2012;60:1581-98 Specimen Anatomical Collection Method Collection Time Receive d Time (Source) Location / / Volume Laterality Blood 12/08/2021 6:02 PM 2 6:36 EDT PM EDT Resulting Agency Comment Spec In Lab Iker Cuevas MD CHEMISTRY ORDERABLES Performing Organization Address City/State/ZIP Code [place] [address] COVID-19 PCR (12/08/2021 5:00 PM EDT) [facility] Method Time Signature SARS-CoV-2 Not Detected Not Detected [facility] RNA PCR [facility] LABORATORY Comment: This result should be [...] the Simplexa COVID-19 Direct Assay by [employer]i marcum as authorized by the FDA issued [...] Department of Pathology and Laboratory Medicine at [facility], certified under the Clinical [...] clinical management guidance information are available at [facility] Coronavirus Disease 2019 (COVID-19) webpage under Information fo r Healthcare Professionals (https://www.cdc.gov/coronavirus/2019-nc ov/hcp/index.html). Additional information about this and ot her EUA tests can be found in provider and patient fact sheets at the following FDA website: https://www.fda.gov/medical-devices/qnwkfhtewzd-ypyskcu-4798-mhhqt-42-thgekqszo- ztz-aqvmsluvcumduc-vuuqnvq-devices/fxcvg-rvlwoovbdfr-expe SARS-CoV-2 Source EDUCATION PROFESSOR Swab [facility] LABORATORY Specimen (Source) Anatomical Collection Method Collection Time Re ceived Time Location / / Volume Laterality Nasopharyngeal Swab 12/08/2021 5:00 12/08 PM EDT 6:03 PM EDT Comment: Symptoms->Surveillance Resulting Agency Comment Spec In Lab Iker Cuevas MD MICROBIOLOGY - GENERAL ORDER ROBS[place] Performing Organization Address City/[facility] Phon e Number [place] [id number]OS[address] LAB[address] EKG 12 Lead (12/08/2021 4:40 PM EDT) Component Value Ref Range Test Analysis Performed Pathologis t Method Time At Signature Ventricular rate 78 BPM MUSE SYSTEM Atrial Rate 78 BPM MUSE SYSTEM P-R Interval 152 ms MUSE SYSTEM QRS Duration 96 ms MUSE SYSTEM Q-T Interval 396 ms MUSE SYSTEM QTC Calculated 451 ms MUSE SYSTEM (Bezet) Calculated P [place] 44 degrees MUSE SYSTEM Calculated R [place] -31 degrees MUSE SYSTEM Calculated T [place] 124 degrees MUSE SYSTEM INTERPRETATION Normal sinus [...] Cuevas MD ECG ORDERABLES Performing Organization Address City/[facility] Phon e Number MUSE SYSTEM (ABNORMAL) POCT Glucose (12/08/2021 4:34 PM EDT) P athologist Signature POC Glucose 400 (H) 65 - 199 [facility] Comment: Supplemental ranges: <140 mg/dL before meals <180 mg/dL all other times of the day Specimen Anatomical Collection Method Collection Time Receive d Time (Source) Location / / Volume Laterality Blood 12/08/2021 4:34 PM 4:34 EDT PM EDT Iker Cuevas MD POINT OF CARE TEST ORDERABLE S Performing Organization Address City/State/ZIP Code Phon e Number [facility] [place] [address] documented in this encounter [...] Coronary atherosclerosis of unspecified type of vessel, [place] or graft Cardiomyopathy, ischemic Other specified [...] g potassium chloride ER (K-Dur/Klor-Con) tablet Given 05 / 2:01 PM EDT 40 mEq 40 mEq [...] 40 mg 08 (SEP Hold - P rochanningder: Admin Adt - [...] (COMPLET ED) 1744 (Given - Provider: Emma Garcia, VAMSI) 80 [...] (Glutose) 40% oral geL(Linked Group 2) 0805 ([facility] Hold - Provider: Admin Adt - [...] Provider: Mendy Schaffer)1000 (Given - Provider: Mendy cShaffer) ONCE PRN, Starting on Wed12/10/21 at 083 4, Until Wed12/10/21 at 1230, Cath (Intra-Procedure), Routine niCARdipine (Cardene) (100 mcg/mL) dilution (VICE PRESIDENT OF PRODUCT MARKETING) (CANCELED) 1030 (Given - Provider: Vitaliy Nobles [...] mg per tablet 1 tab let 0805 ([facility] Hold - Provider: Admin Adt - Reason: Transfer to a Procedural area)1230 ([facility] Unhold - Provider: Admin Adt) 1 tablet, Oral, 2 TIMES DAILY PRN, Start ing on Wed12/09/21 at 1628, Until Wed12/12/21 at 1312, Constipation, Routine sodium chloride 0.9 % (flush) (BD PosiFlush Normal Sean ine 0.9) flush 5-20 mL 0805 ([facility] Hold - Provider: Admin Adt [...] episode. & nbsp; For persistent hypoglycemia, con loop puller longer-acting treatment for the duration of [...] documented in this encounter Care Teams Mechanical Piping Designer Relationship Specialty Start Date End Date Lovely Vicente MD PCP - General 04/16/[address] [place] [address] documented as of this encounter
--- OUTSIDE RECORDS SUMMARY | 2022-04-10 08:55 | XMS_ITS | Encounter Summary ---
:1945 Author Organization [facility] [place] [address] Care Team Providers Name Role Phone Lovely Vicente MD Primary Care Provider Reason for Visit Reason Onset Date Comments Advice Only 01/28/2022 Encounter Details Date Type Department Care Team Description 01/28/2022 Telephone Cardiology at [facility] Chitra Angela, nascar pit [place] [address] Social History Tobacco Use Types Packs/Day [...] Fatima assists patient with medications. Number for micro lab analyst scheduling given and she will call them to verify this information Meds reviewed. As per our form from micro lab analyst Eliquis hold for 48 hours prior. Pt [...] Dolan MD [facility] [address] [place], [place] [address] (Wo rk) 05/28/2022 Laboratory Appointment Lab 05/28/2022 Office Visit Cardiology Zulma Dolan [place] [address] Liz Poole PA [facility] [place] [address] 06/10/2022 Office Visit Dermatology Laura Scherer MD [facility] [address] [place], [place] [address] (Wo rk) documented as of this encounter Visit Diagnoses Not on filedocumented in this encounter Care Teams Facs Teacher Relationship Specialty Start Date End Date Lovely Vicente MD PCP - General 04/16/[address] [place] [address] documented as of this encounter
--- OUTSIDE RECORDS SUMMARY | 2022-04-10 08:55 | XMS_ITS | Encounter Summary ---
:1945 [place] [address] Care Team Providers Name Role Phone Lovely Vicente MD Primary Care Provider Encounter Details Date Type Department Care Team Description 12/30/2021 Notes Only [facility] [place] [address] Social History Tobacco Use Types Packs/Day [...] Failure team. DX: HFrEF. Referral placed to [facility] documented in this encounter Plan of Treatment Upcoming Encounters Date Type Specialty Care Team Description 05/28/2022 Appointment Cardiology Zulma Dolan MD [facility] [address] [place], [place] [address] (Wo rk) 05/28/2022 Laboratory Appointment Lab 05/28/2022 Office Visit Cardiology Zulma Dolan MD [facility] [place] [address] Liz Poole PA [facility] [place] [address] 06/10/2022 Office Visit Dermatology Laura Scherer MD [facility] ER [address] [place], [place] [address] (Wo rk) documented as of this encounter Visit Diagnoses Not on filedocumented in this encounter Care Teams Retail Property Manager Relationship Specialty Start Date End Date Lovely Vicente MD PCP - General 04/16/[address] [place] [address] documented as of this encounter
--- OUTSIDE RECORDS SUMMARY | 2022-04-10 08:55 | XMS_ITS | Encounter Summary ---
:1945 Author Organization [facility] [place] [address] Care Team Providers Name Role Phone Lovely Vicente MD Primary Care Provider Encounter Details Date Type Department Care Team Description 12/24/2021 Orders Only Bite Block Maker Zulma Finch ASCVD (art eriosclerotic [facility] cardiovascular disease) [facility] [place] [address] [place], [place] [phone] (Work) [phone] Social History Tobacco Use Types Packs/Day Years [...] Dolan MD [facility] [address] [place] [address] (Wo rk) 05/28/2022 Laboratory Appointment Lab 05/28/2022 Office Visit Cardiology Zulma Dolan MD [facility] [place] [address] Liz Poole PA [facility] [place] [address] 06/10/2022 Office Visit Dermatology Laura Scherer MD [facility] [address] [place], [place] [address] (Wo rk) documented as of this encounter Visit Diagnoses Diagnosis ASCVD (arteriosclerotic cardiovascular d isease) Unspecified cardiovascular disease documented in this encounter Care Teams Automation Control Integrator Relationship Specialty Start Date End Date Lovely Vicente MD PCP - General 04/16/[address] [place] [address] documented as of this encounter
--- OUTSIDE RECORDS SUMMARY | 2022-04-10 08:55 | XMS_ITS | Encounter Summary ---
:1945 Author Organization [facility] [place] [address] Care Team Providers Name Role Phone Lovely Vicente MD Primary Care Provider Encounter Details Date Type Department Care Team Description 12/12/2021 Telephone Cardiology at [facility] [place] [address] Social History Tobacco Use Types Packs/Day [...] - 12/12/2021 11:36 AM EDT RTC to [facility]isto regarding pharmacists questions as to whether the [...] [facility] [address] [place] [address] (Wo rk) 05/28/2022 Laboratory Appointment Lab 05/28/2022 Office Visit Cardiology Zulma Dolan MD [facility] [place] [address] Liz Poole PA [facility] [place] [address] 06/10/2022 Office Visit Dermatology Laura Scherer MD [facility] [address] [place], [place] [address] (Wo rk) documented as of this encounter Visit Diagnoses Not on filedocumented in this encounter Care Teams Bilingual Hr Generalist Relationship Specialty Start Date End Date Lovely Vicente MD PCP - General 04/16/[address] [place] [address] documented as of this encounter
--- OUTSIDE RECORDS SUMMARY | 2022-04-10 08:55 | XMS_ITS | Encounter Summary ---
:1945 Author Organization [facility] [place] [address] Care Team Providers Name Role Phone Lovely Vicente MD Primary Care Provider Reason for Visit Reason Onset Date Comments Medication Refill 12/12/2021 Torsemide Encounter Details Date Type Department Care Team Description 12/12/2021 Refill Cardiology at [facility] Janneth Padilla, Medication Refill [facility] STEPHANIE (Torsemide) [place] [address] CARDIOLOGY DEPT. DE [place], [place] [address] (Wo rk) Social History Tobacco [...] [facility] [place] [address] [place], [place] [address] (Wo rk) 05/28/2022 Laboratory Appointment Lab 05/28/2022 Office Visit Cardiology Zulma Dolan MD [facility] [place] [address] Liz Poole PA [facility] [place] [address] 06/10/2022 Office Visit Dermatology Laura Scherer MD [facility] ER [address] [place], [place] [address] (Wo rk) documented as of this encounter Visit Diagnoses Diagnosis Chronic systolic heart failure documented in this encounter Care Teams Chemical Process Equipment Operator Relationship Specialty Start Date End Date Lovely Vicente MD PCP - General 04/16/[address] [place] [address] documented as of this encounter
--- OUTSIDE RECORDS SUMMARY | 2022-04-10 08:55 | XMS_ITS | Encounter Summary ---
:1945 Author Organization [facility] [address] Care Team Providers Name Role Phone Lovely Vicente MD Primary Care Provider Encounter Details Date Type Department Care Team Description 12/25/2021 Laboratory Appointment Lab 3L [facility] [place] [phone] Social History Tobacco Use Types Packs/Day Years [...] MD [facility] er [place], [place] [address] (Wo rk) 05/28/2022 Laboratory Appointment Lab 05/28/2022 Office Visit Cardiology Zulma Dolan MD [facility] [place] [address] Liz Poole PA [facility] [place] [address] 06/10/2022 Office Visit Dermatology Laura Scherer MD [facility] [address] [place] [address] (Wo rk) documented as of this encounter [...] (ABNORMAL) Differential, Automated (12/25/2021 7:46 AM EDT) [facility] gist Method Time Signature Neutrophils % 82.6 % [facility] Neutr Abs (ANC) 9.37 (H) 1.70 - [facility] 6.10 [facility] x10(3)/[facility] LABORATORY Lymphocytes % 7.1 % [facility] Lymphocytes Abs 0.8 (L) 0.9 - 3.2 [facility] x10(3)/[facility] LABORATORY Monocytes % 8.8 % [facility] Monocyte Abs 1.0 (H) 0.3 - 0.9 [facility] x10(3)/[facility] LABORATORY Eosinophils % 0.4 % [facility] Eosinophils Abs 0.0 0.0 - 0.4 [facility] x10(3)/[facility] LABORATORY Basophils % 0.4 % [facility] Basophils Abs 0.0 0.0 - 0.1 [facility] x10(3)/[facility] LABORATORY Immature Gran % 0.70 % [facility] [...] City/State/ZIP Code Phon e Number [place] [id number] (ABNORMAL) Hemogram (12/25/2021 7:46 AM EDT) Analysis Performed At Patho logist Time Signature WBC 11.4 (H) 4.0 - 9.5 [facility] x10(3)/[facility] LABORATORY RBC 4.23 (L) 4.58 - [facility] 5.54 [facility] x10(6)/[facility] LABORATORY Hemoglobin 12.3 (L) 13.7 - [facility] 16.5 g/dL [facility] Hematocrit 37.7 (L) 40.5 - [facility] 48.5 % [facility] LABORATORY MCV 89.1 82.9 - [facility] 93.1 [facility] LABORATORY MCH 29.1 27.5 - [place] [facility] 32.1 pg [facility] LABORATORY MCHC 32.6 32.0 - [facility] 35.7 g/dL [facility] LABOR[facility]ORY Platelets 215 145 - 357 [facility] x10(3)/[facility] LABORATORY RDWSD 49.8 (H) 36.0 - [place] 45.0 [facility] RDWCV 15.2 (H) 11.4 - [facility] 13.8 % [facility] LABORATORY MPV 9.2 7.6 - 12.9 [facility] LABORATORY nRBC % Auto 0.0 % [facility] LABORATORY nRBC Abs Auto 0.000 0.000 - [facility] 0.000 [facility] x10(3)/[facility] LABORATORY Specimen Anatomical Collection Method Collection Time Receive d Time (Source) Location / / Volume Laterality Blood 12/25/2021 7:46 AM 8:01 EDT AM EDT Resulting Agency Comment Spec In Lab Liz BROWN HEMATOLOGY ORDERABLES Performing Organization Address City/State/ZIP [place] [address] (ABNORMAL) Basic Metabolic Panel (non-fasting) (12/25/2021 7:46 AM EDT) P athologist Signature Glucose Lvl 272 (H) 65 - 199 [facility] mg/dL [facility] LABORATORY Comment: Diabetes: >=200 mg/dL plus symp toms BUN 62 (H) 10 - 20 mg/dL [facility] LABORATORY Creatinine 1.81 (H) 0.80 - 1.50 mg/dL [facility] LABORATORY Sodium 134 (L) 135 - 145 mmol/L [facility] Potassium 4.9 3.5 - 5.0 mmol/L [facility] LABORATORY [...] LABORATORY Calcium 9.4 8.5 - 10.5 mg/dL [facility] Estimated GFR 36 (L) >=60 [...] Plunkett MD CHEMISTRY ORDERABLES Performing Organization Address City/[facility]/[place] [address] (ABNORMAL) pro-Brain Natriuretic Peptide (12/25/2021 7:46 AM EDT) P athologist Signature ProBNP 1,380 (H) <=124 [facility] pg/mL [facility] LABORATORY Specimen Anatomical Collection Method Collection Time Receive d Time (Source) Location / / Volume Laterality Blood 12/25/2021 7:46 AM 2 8:01 EDT AM EDT Resulting Agency Comment Spec In Lab Zulma Plunkett MD CHEMISTRY ORDERABLES Performing Organization Address City/[facility]/ZIP [facility] [place] [address] documented in this encounter Visit Diagnoses Diagnosis Chronic systolic heart failure documented in this encounter Care Teams Meat Processing Center Manager Relationship Specialty Start Date End Date Lovely Vicente MD PCP - General 04/16/[address] [place] [address] documented as of this encounter
--- OUTSIDE RECORDS SUMMARY | 2022-04-10 08:55 | XMS_ITS | Encounter Summary ---
:1945 Author Organization [facility] Address [facility] [place] [address] Care Team Providers Name Role Phone Lovely Vicente MD Primary Care Provider Reason for Visit Auth/Cert Specialty Diagnoses / Procedures Referred By Contact Refer red To Contact Diagnoses ASCVD (arteriosclerotic cardiovascular disease) [I25.10] Vitaliy Nobles MD [facility] Procedures PRO PERC TRLUML CORONARY STENT W/ANGIO ONE ART/BRANCH CARDIAC CATHETERIZATION STENT PLACEMENT-SINGLE MAJOR CORONARY ARTERY OR BRANCH [facility] [place] [address] Referral ID Status Reason Start Date Expiration Date Visits Requ ested Visits Authorized [id number] 1 1 Encounter Details Date Type Department Care Team Description 01/30/2022 Surgery Salesperson Jewelry Asa Coulter MD CARDIAC CATHETERIZATION [facility] [address] [place] [address] [phone] (Wo rk) Social History Tobacco Use Types [...] and Clopidogrel. Please follow up with your digital marketing project manager in the next 4-6 weeks. We have made a referral to cardiac rehab. Please see the attached instructions regarding care to your right wrist access site. AttachmentsThe following attachments cannot be sent through Care Everywhere. Coronary Angiogram: Post-op (Jordanian)documented in this encounter Medications at Time of [...] documented as of this encounter Progress Notes Terri, Carlos Alberto J, RN - 01/30/2022 4:54 PM EDT [facility] Short Stay Unit Discharge Note [...] presenting for staged PCI to [facility]. The pt states he has been ok. [...] presenting for staged PCI to [facility]. The indications, expected benefits, and potential risks [...] had referred him to cardiac rehab at [facility] last month per HF team. He was waiting until this intervention before starting the program. Reviewed managing angina /use of sl nitroglycerin. Given parameters for home exercise. 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 We discussed short walks several times per day. Will send [facility] his discharge summary from this admission. The patient should be contacted by the Program within 1- 2 weeks from discharge. Brief Op Note - Vitaliy Nobles MD - 01/30/2022 10:19 AM EDT Images from the original note were not included. [facility] [place] [address] CORONARY ANGIOGRAM AND PERCUTANEOUS CORONARY INTERVENTION REPORT Patient: Don Fatima : 1945 MR number: [id number] Date of Service: 01/30/2022 Events Specialist: Vitaliy Nobles MD Fellow: KEYON Elizabeth INDICATION: [...] a long 2.0 x 26 mm HARDEEP [place] TUCKER stent and positioned it at the [...] using a 2.0 x 26 mm HARDEEP [place] TUCKER stent. This completes the revascularization ofall [...] Dolan MD [facility] [place] [address] [place] 0[address] (Wo rk) 05/28/2022 Laboratory Appointment Lab 05/28/2022 Office Visit Zumla Garrison MD [facility] [place] [address] Liz Poole PA [facility] [place] [address] 06/10/2022 Office Visit Dermatology Laura Scherer MD [facility] ER DR [address] [facility] [place] [address] (Wo rk) Scheduled Orders Name [...] LABORATORY Neutr Abs (ANC) 3.96 1.70 - [facility] 6.10 [facility] x10(3)/[facility] LABORATORY Lymphocytes % 16.3 % [facility] LABORATORY Lymphocytes Abs 0.9 0.9 - 3.2 [facility] x10(3)/[facility] LABORATORY Monocytes % 10.0 % [facility] LABORATORY Monocyte Abs 0.6 0.3 - 0.9 [facility] x10(3)/[facility] LABORATORY Eosinophils % 0.5 % [facility] LABORATORY Eosinophils Abs 0.0 0.0 - 0.4 [facility] x10(3)/[facility] LABORATORY Basophils % 0.5 % [facility] LABORATORY Basophils Abs 0.0 0.0 - 0.1 [facility] x10(3)/[facility] LABORATORY Immature Gran % 0.90 % [facility] [...] Organization Address City/State/[place] [address] (ABNORMAL) Hemogram (01/30/2022 2:12 PM EDT) Analysis Performed At Patho logist Time Signature WBC 5.5 4.0 - 9.5 [facility] x10(3)/[facility] LABORATORY RBC 4.30 (L) 4.58 - [facility] 5.54 [facility] x10(6)/[facility] LABORATORY Hemoglobin 12.7 (L) 13.7 - [place] 16.5 g/dL [facility] LABORATORY Hematocrit 39.4 (L) 40.5 - [place] 48.5 % [facility] LABORATORY MCV 91.6 82.9 - [place] 93.1 [facility] LABORATORY MCH 29.5 27.5 - [place] 32.1 pg [facility] LABORATORY MCHC 32.2 32.0 - [place] 35.7 g/dL [facility] LABORATORY Platelets 172 145 - 357 [facility] x10(3)/[facility] LABORATORY RDWSD 54.5 (H) 36.0 - [place] 45.0 [facility] LABORATORY RDWCV 16.4 (H) 11.4 - [place] 13.8 % [facility] LABORATORY MPV 9.2 7.6 - 12.9 [place] [facility] LABORATORY nRBC % Auto 0.0 % [facility] LABORATORY nRBC Abs Auto 0.000 0.000 - [place] 0.000 [facility] x10(3)/[facility] LABORATORY Specimen Anatomical Collection Method Collection Time Receive d Time (Source) Location / / Volume Laterality Blood 01/30/2022 2:12 PM 2 2:37 EDT PM EDT Resulting Agency Comment Spec In Lab Eddi Elizabeth Jr., MD HEMATOLOGY ORDERABLES Performing Organization Address City/State/[place] [address] (ABNORMAL) Basic Metabolic Panel (non-fasting) (01/30/2022 2:12 PM EDT) athologist Signature Glucose Lvl 163 65 - 199 [facility] mg/dL [facility] [...] Organization Address City/State/[place] [address] POCT Glucose (01/30/2022 1:41 PM EDT) athologist Signature POC Glucose 148 65 - 199 [facility] mg/dL [facility] [...] City/[facility]/ZIP Code Phon e Number [address] POCT Glucose (01/30/2022 10:48 AM EDT) P athologist Signature POC Glucose 193 65 - 199 [facility]dL [facility] LABORATORY Comment: Supplemental ranges: <140 mg/dL before meals <180 mg/dL all other times of the day Specimen Anatomical Collection Method Collection Time Receive d Time (Source) Location / / Volume Laterality Blood 01/30/2022 10:48 01/30/2022 AM EDT 10:48 AM EDT Vitaliy Nobles MD POINT OF CARE TEST ORDERABLE S Performing Organization Address [facility] [place] [address] EKG 12 Lead (01/30/2022 10:33 AM EDT) Component Value Ref Range Test Analysis Performed Pathologis t Method Time At Signature Ventricular rate 64 BPM MUSE SYSTEM Atrial Rate 64 BPM MUSE SYSTEM P-R Interval 162 ms MUSE SYSTEM QRS Duration 94 ms MUSE SYSTEM Q-T Interval 422 ms MUSE SYSTEM QTC Calculated 435 ms MUSE SYSTEM (Bezet) Calculated P [place] 41 degrees MUSE SYSTEM Calculated R [place] -27 degrees MUSE SYSTEM Calculated T [place] 104 degrees MUSE SYSTEM INTERPRETATION Normal sinus rhythm MUSE SYSTEM Anterolateral infarct (cited on or before 09-DEC-2021) Abnormal ECG When compared with ECG of 10-DEC-2021 11:17, No significant change was found Confirmed by Gary Perez ([id number]) on 01/30/2022 5:57:5 2 PM Specimen Anatomical [...] Laterality Volume Narrative 01/30/2022 2:09 PM EDT ?[facility] ? Cardiac Cathete rization/Intervention Report ? Patient Name: Don Fatima. ? Procedure Date: 01/30/2022 ? A #: [id number] ? Primary Physician: Nobles, Vitaliy P ? Case #: [id number] ? File Name: [id number] ? Catheterization Order Number: [id number] ? [facility] ? Final Report [place], [place] ? Patient Name: ? Don E. Stewa rt ? ID#: ?[id number] ? : ?1945 ? Procedure Date: ? [...] guiding catheter an d a 3.[address] [place] [address] ??20 Mhz ?using Manual pullback. ??Imagin [...] A premounted 2.00 x 26 mm Hardeep [place] (TUCKER) ? was deployed wi a maximum [...] Wedelivered along 2.0 x 26 mm HARDEEP [place] ? TUCKER stent and p ositioned it [...] may require ?modification of this regimen. [facility] for ?questions. ?The 1 year bleeding risk as nusrat culated by the PRECISE DAPT score is High ?risk. ?High Bleeding Risk - Anticoagul ation and DAPT: ?- ??Assess ischemic and bleedin g risks using validated risk predictors ?(e.g. CHADS2-VASC, HAS-BLED, [place] ECISE DAPT, DAPT Score) ?- ??Keep anticoagulant [...] using a 2.0 x 26 mm HARDEEP [place] TUCKER stent. ?This completes the revasculariz ation [...] Procedure Note Vitaliy Nobles MD - 03/06/2022 [facility] Cardiac Catheterization/Intervention Re port Patient Name: Don Fatima Procedure Date: 01/30/2022 A #: [id number] Primary Physician: Vitaliy Nobles Case #: [id number] File Name: [id number] Catheterization Order Number: [id number] [facility] Final Report [place], [place] Patient Name: Don Fatima ID#: [...] e was Urgent. The indication for the labels molder visit is stable known CAD. Chest pain [...] 1.5 guiding catheter and a 3.[address] 20 Mhz using Manual pullback. Imaging [...] A premounted 2.00 x 26 mm Hardeep [place] (TUCKER) was deployed with a maximum inflation [...] the proximal and mid RPDA 95% le latonay. A successful PCI was performed on the95 [...] along 2. 0 x 26 mm HARDEEP [place] TUCKER stent and positioned it at the [...] administered prior t o arrival in the labels molder. Recommended anti-platelet/anti-thrombot ic regimen: Continue aspirin 81 [...] using a 2.0 x 26 mm HARDEEP [place] TUCKER stent. This completes the revascularization of [...] POC Glucose 212 (H) 65 - 199 [facility] mg/dL [facility] [...] Organization Address City/State/[place] [address] (ABNORMAL) POCT Glucose (01/30/2022 8:10 AM EDT) athologist Signature POC Glucose 224 (H) 65 - 199 [facility] mg/dL [facility] [...] Organization Address City/State/[place] [address] documented in this encounter Visit Diagnoses Diagnosis ASCVD (arteriosclerotic cardiovascular d isease) Unspecified cardiovascular disease 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 ASHD (arteriosclerotic heart disease) Coronary atherosclerosis of unspecified type of vessel, [place] or graft ASCVD (arteriosclerotic cardiovascular d isease) Unspecified cardiovascular disease documented in this encounter Admitting Diagnoses Diagnosis CAD (coronary artery disease) Coronary atherosclerosis of unspecified type of vessel, [place] or graft documented in this encounter Administered [...] Wed01/30/22 at 1039, Until Wed at 1045, ISAEL, MADDISON L.: cabinet override clopidogreL (Plavix) tablet 600 mg [...] Given 02/2022 10:11 AM EDT 100 mcg (ROOFING MACHINE TENDER) ONCE PRN, Starting on Wed01/30/22 at 0927, [...] Procedure), Routine niCARdipine (Cardene) (100 mcg/mL) dilution (ROOFING MACHINE TENDER) (CANCELED ) 0927 (Given - Provider: Vitaliy [...] (Intra-Procedure) documented in this encounter Care Teams Jazz Singer Relationship Specialty Start Date End Date Lovely Vicente MD PCP - General 04/16/[address] [place] [address] documented as of this encounter
--- OUTSIDE RECORDS SUMMARY | 2022-04-10 08:55 | XMS_ITS | Encounter Summary ---
:1945 Author Organization [facility] [place] [address] Care Team Providers Name Role Phone Lovely Vicente MD Primary Care Provider Encounter Details Date Type Department Care Team Description 01/28/2022 Orders Only Veneer Jointer Zulma Finch ASCVD (art eriosclerotic [facility] cardiovascular disease) [facility] [place] [address] [place], [place] [phone] (Work) [phone] Social History Tobacco Use Types Packs/Day Years [...] [facility] [address] [place] [address] (Wo rk) 05/28/2022 Laboratory Appointment Lab 05/28/2022 Office Visit Cardiology Zulma Dolan MD [facility] [place] [address] Liz Poole PA [facility] [place] [address] 06/10/2022 Office Visit Dermatology Laura Scherer MD [facility] [address] [place], [place] [address] (Wo rk) documented as of this encounter Results (ABNORMAL) Basic Metabolic Panel (non-fasting) (01/30/2022 7:19 AM EDT) athologist Signature Glucose Lvl 237 (H) 65 - 199 [facility] mg/dL [facility] LABORATORY Comment: Diabetes: >=200 mg/dL plus symp toms BUN 34 (H) 10 - 20 mg/dL [facility] LABORATORY Creatinine 1.45 0.80 - 1.50 mg/dL [facility] LABORATORY [...] 107 mmol/L [facility] LABORATORY CO2 30 22 - 31 mmol/L [facility] LABORATORY Anion Gap 11 5 - 15 mmol/L [facility] LABORATORY Calcium 9.5 8.5 - 10.5 mg/dL [facility] LABORATORY Estimated GFR 50 (L) >=60 mL/min/1.73 m?? [facility] [...] Organization Address City/State/[place] [address] documented in this encounter Visit Diagnoses Diagnosis ASCVD (arteriosclerotic cardiovascular d isease) Unspecified cardiovascular disease documented in this encounter Care Teams Protective Service Specialist Relationship Specialty Start Date End Date Lovely Vicente MD PCP - General 04/16/[address] [place] [address] documented as of this encounter
--- OUTSIDE RECORDS SUMMARY | 2022-04-10 08:55 | XMS_ITS | Encounter Summary ---
:1945 [place] [address] Care Team Providers Name Role Phone Lovely Vicente MD Primary Care Provider Encounter Details Date Type Department Care Team Description 12/25/2021 Office Visit Cardiology at [facility] Liz Poole, Chronic systolic heart [facility] [place] [address] Cardiology Dept [phone] [place], [place] [address] Social History Tobacco Use Types [...] As per DC Summary - Admitted to [facility] on 12/08/21, transferred from [facility], respiratory distress with hypoxia 86% on [...] mg PO daily in place of Lasix. [place] is new for him and he will [...] Antiplatelet (DAPT) Recommendations above ? TTE from [facility] 12/08/21 ?? 07/28/2019 Echocardiogram: SUMMARY: 1. [...] regurgitation present. 07/07/2019 - 07/21/2019 Zio Patch Lead Java J2Ee Developer The patient had a minimum heart [...] hyperkalemia 4.9 today 6. Post-op atrial fibrillation [id number] 7 (CHF, HTN, DM, vascular disease, thromboembolism) Eliquis 7. PAD 08/06/2017: Right 1st, 2nd, 3rd toe amputation 08/11/2017: Left??femoral arterial access, RLE??angiogram, Balloon angioplasty of R PT 10/25/2017: right popliteal-pedal bypass at [facility] 8. Hypothyrodism S/p thyroidectomy for goiter Levothyroxine ?? Plan: 1 month follow up with labs Liz Poole PA-C 12/25/2021 documented in this encounter Plan of Treatment Upcoming Encounters Date Type Specialty Care Team Description 05/28/2022 Appointment Cardiology Zulma Dolan MD [facility] [address] [place], [place] [address] (Wo rk) 05/28/2022 Laboratory Appointment Lab 05/28/2022 Office Visit Cardiology Zulma Dolan MD [facility] [place] [address] Liz Poole PA [facility] [place] [address] 06/10/2022 Office Visit Dermatology Laura Scherer MD [facility] ER [address] [place], [place] 0[address] (Mikayla alcaraz) documented as of this encounter Results (ABNORMAL) pro-Brain Natriuretic Peptide (12/25/2021 7:46 AM EDT) athologist Signature ProBNP 1,380 (H) <=124 [facility] pg/mL [facility] LABORATORY Specimen Anatomical Collection Method Collection Time Receive d Time (Source) Location / / Volume Laterality Blood 12/25/2021 7:46 AM 8:01 EDT AM EDT Resulting Agency Comment Spec In Lab Zulma Plunkett MD CHEMISTRY ORDERABLES Performing Organization Address City/State/[place] [address] (ABNORMAL) Basic Metabolic Panel (non-fasting) (12/25/2021 7:46 AM EDT) athologist Signature Glucose Lvl 272 (H) 65 - 199 [facility] mg/dL [facility] LABORATORY Comment: Diabetes: >=200 mg/dL plus symp toms BUN 62 (H) 10 - 20 mg/dL [facility] LABORATORY Creatinine 1.81 (H) 0.80 - [...] mmol/L [facility] LABORATORY Calcium 9.4 8.5 - 10.5 [...] Organization Address City/State/[place] [address] documented in this encounter Visit Diagnoses Diagnosis Chronic systolic heart failure documented in this encounter Care Teams Patent Agent Relationship Specialty Start Date End Date Lovely Vicente MD PCP - General 04/16/[address] [place] [address] documented as of this encounter
--- OUTSIDE RECORDS SUMMARY | 2022-04-10 08:56 | XMS_ITS | Encounter Summary ---
:1945 [place] [address] Care Team Providers Name Role Phone Lovely Vicente MD Primary Care Provider Encounter Details Date Type Department Care Team Description 07/12/2019 Office Visit Dermatology at [facility], Rigoberto Yarbrough (actinic keratosis); MD SHAY Quick III (seborrheic keratosis); [address] [facility] Multiple benign nevi; [place] [address] History of melanoma [phone] [facility] [place], [place] [address] Social History Tobacco Use Types [...] Dolan MD [facility] Dr [place], [place] [address] (Wo rk) 05/28/2022 Laboratory Appointment Lab 05/28/2022 Office Visit Cardiology Zulma Dolan MD [facility] [place] [address] Liz Poole PA [facility] [place] [address] 06/10/2022 Office Visit Dermatology Laura Scherer MD [facility] DR [address] [place], [place] 0[address] (Wo rk) documented as of this encounter Visit Diagnoses Diagnosis AK (actinic keratosis) Actinic keratosis SK (seborrheic keratosis) Other seborrheic keratosis Multiple benign nevi Benign neoplasm of skin, site unspecifie d History of melanoma Personal history of malignant melanoma o f skin documented in this encounter Care Teams Trading Assistant Relationship Specialty Start Date End Date Lovely Vicente MD PCP - General 04/16/[address] [facility] [address] [place] [address] documented as of this encounter
--- OUTSIDE RECORDS SUMMARY | 2022-04-10 08:56 | XMS_ITS | Encounter Summary ---
:1945 Author Organization [facility] [place] [address] Care Team Providers Name Role Phone Lovely Vicente MD Primary Care Provider Encounter Details Date Type Department Care Team Description 07/28/2019 Office Visit Cardiology at [facility] Danette Maxwell Chronic systolic heart failu re; [facility] A, STACIE ASHD (arteriosclerotic heart disease); Drive [facility] S/P CABG x 3; [place], [place] VICTOR[place] (obstructive sleep apnea) on CPAP; [address] CARDIOLOGY Mixed hyperlipidemia [phone] [place], [place] [address] Social History Tobacco Use Types [...] in this encounter Progress Notes Danette Maxwell, ACETYLENE TORCH BURNER - 07/28/2019 9:40 AM EST Images from [...] regurgitation present. 07/07/2019 - 07/21/2019 Zio Patch Packager Or Packer And Weigher The patient had a minimum heart rate [...] shows 40 to 45% On BB and KIRSTNI-I No spironolactone as K+ has been > [...] K+ 4.5 today 6. Post-op atrial fibrillation [id number] 7 (CHF, HTN, DM, vascular disease, thromboembolism) [...] advised: Refer to EP (Dr. Mcelroy in [place]) 5. Heart Failure Clinic follow up scheduled for: 3 months with proBNP and BMP Danette Maxwell APRN 07/28/2019 documented in this encounter Plan of Treatment Upcoming Encounters Date Type Specialty Care Team Description 05/28/2022 Appointment Cardiology Zulma Dolan MD [facility] [place], [place] [address] (Wo rk) 05/28/2022 Laboratory Appointment Lab 05/28/2022 Office Visit Cardiology Zulma Dolan MD [facility] [place] [address] Liz Poole PA [facility] [place] [address] 06/10/2022 Office Visit Dermatology Laura Scherer MD [facility] DR [address] [place], [place] [address] (Wo rk) documented as of this encounter Results (ABNORMAL) Basic Metabolic Panel (non-fasting) (07/28/2019 8:36 AM EST) P athologist Signature Glucose Lvl 153 65 - 199 [facility] mg/dL [facility] LABORATORY Comment: Diabetes: >=200 mg/dL plus symp toms BUN 22 (H) 10 - 20 mg/dL [facility] [...] of body mass or the acutely ill. [email or web address]/[facility] eGFR 81 >=60 mL/min/1.73 m?? [facility] LABORATORY Comment: The eGFR was calculated using the CKD-EP I equation. As with all creatinine based estimates of kidney function, eGFR values calculated with the CKD-EPI equation are not accurate in patients wi th acute kidney failure, extremes of body mass or the acutely ill. [email or web address]/[facility]UNCAN[facility]f Specimen Anatomical Collection Method Collection Time Receive d Time (Source) Location / / Volume Laterality Blood specimen 07/28/2019 8:36 AM 020 8:46 (specimen) EST AM EST Resulting Agency Comment Spec In Lab Danette Maxwell APRN CHEMISTRY ORDERABLES Performing Organization Address City/State/ZIP Code Phon e Number [address] (ABNORMAL) pro-Brain Natriuretic Peptide [...] Maxwell APRN CHEMISTRY ORDERABLES Performing Organization Address City/[facility]/[place] [address] documented in this encounter Visit Diagnoses Diagnosis Chronic systolic heart failure ASHD (arteriosclerotic heart disease) Coronary atherosclerosis of unspecified type of vessel, [place] or graft S/P CABG x 3 Postsurgical aortocoronary bypass status MAR[place] VICTORIA (obstructive sleep apnea) on CPAP Obstructive sleep apnea (adult) (pediatr ic) Mixed hyperlipidemia documented in this encounter Care Teams Precision Instrument Maker And Repairer Relationship Specialty Start Date End Date Lovely Vicente MD PCP - General 04/16/[address] [place] [address] documented as of this encounter
--- OUTSIDE RECORDS SUMMARY | 2022-04-10 08:56 | XMS_ITS | Encounter Summary ---
:1945 Author Organization [facility] [place] [address] Care Team Providers Name Role Phone Lovely Vicente MD Primary Care Provider Encounter Details Date Type Department Care Team Description 02/19/2020 Telephone Dermatology at [facility] Ariana Wilder LPN [address] [place] [address] Social History Tobacco Use Types Packs/Day [...] MD [facility] [place], [place] [address] (Wo rk) 05/28/2022 Laboratory Appointment Lab 05/28/2022 Office Visit Cardiology Zulma Dolan MD [facility] [place] [address] Liz Poole PA [facility] [place] [address] 06/10/2022 Office Visit Dermatology Laura Scherer MD [facility] [address] [place], [place] [address] (Wo rk) documented as of this encounter Visit Diagnoses Not on filedocumented in this encounter Care Teams Wall Covering Installer Relationship Specialty Start Date End Date Lovely Vicente MD PCP - General 04/16/[address] [place] [address] documented as of this encounter
--- OUTSIDE RECORDS SUMMARY | 2022-04-10 08:56 | XMS_ITS | Encounter Summary ---
:1945 [place] [address] Care Team Providers Name Role Phone Lovely Vicente MD Primary Care Provider Encounter Details Date Type Department Care Team Description 04/16/2021 Office Visit Cardiology at [facility] Liz Poole, Chronic systolic heart [facility] [place] [address] Cardiology Dept [phone] [place], [place] [address] Social History Tobacco Use Types [...] was feeling good. Interim events: Seen at 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 Post-op atrial fibrillation [id number] (CHF, HTN, DM, vascular disease, thromboembolism) [...] Zulma Dolan MD [facility] [place], [place] [address] (Wo rk) 05/28/2022 Laboratory Appointment Lab 05/28/2022 Office Visit Cardiology Zulma Dolan MD [facility] [place] [address] Liz Poole PA [facility] [place] [address] 06/10/2022 Office Visit Dermatology Laura Scherer MD [facility] [address] [place], [place] [address] (Wo rk) documented as of this encounter Results (ABNORMAL) Basic Metabolic Panel (non-fasting) (04/16/2021 9:58 AM EDT) athologist Signature Glucose Lvl 77 65 - 199 [facility] mg/dL [facility] Comment: Diabetes: >=200 mg/dL plus symp toms BUN 23 (H) 10 - 20 mg/dL [facility] Creatinine 1.26 0.80 - 1.50 mg/dL [facility] Sodium 140 135 - 145 mmol/L [facility] Potassium 5.2 (H) 3.5 - 5.0 mmol/L [facility] Estimated GFR 55 [...] Address City/State/[place] [address] (ABNORMAL) pro-Brain Natriuretic Peptide [...] Address City/State/[place] [address] documented in this encounter Visit Diagnoses Diagnosis Chronic systolic heart failure documented in this encounter Care Teams Broadloom Weaver Relationship Specialty Start Date End Date Lovely Vicente MD PCP - General 04/16/[address] [place] [address] documented as of this encounter
--- OUTSIDE RECORDS SUMMARY | 2022-04-10 08:56 | XMS_ITS | Encounter Summary ---
:1945 Author Organization [facility] [place] [address] Care Team Providers Name Role Phone Lovely Vicente MD Primary Care Provider Encounter Details Date Type Department Care Team Description 07/28/2019 Laboratory Appointment Lab 3L [facility] [place] [id number] Social History Tobacco Use Types Packs/Day Years [...] Dolan MD [facility] [place] [address] (Wo rk) 05/28/2022 Laboratory Appointment Lab 05/28/2022 Office Visit Cardiology Zulma Dolan [place] [address] Liz Poole PA [facility] [place] [address] 06/10/2022 Office Visit Dermatology Laura Scherer MD [facility] [address] [place] [address] (Wo rk) documented as of this encounter [...] Organization Address City/State/[place] [address] (ABNORMAL) Basic Metabolic Panel (non-fasting) (07/28/2019 8:36 AM EST) athologist Signature Glucose Lvl 153 65 - 199 [facility] mg/dL [facility] Comment: [...] [facility] Estimated GFR 70 >=60 mL/min/1.73 m?? [facility] Comment: The eGFR was calculated using the CKD-EP I equation. As with all creatinine based estimates of kidney function, eGFR values calculated with the CKD-EPI equation are not accurate in patients wi th acute kidney failure, extremes of body mass or the acutely ill. [email or web address] eGFR 81 >=60 mL/min/1.73 m?? [facility] Comment: The eGFR was calculated using the CKD-EP I equation. As with all creatinine based estimates of kidney function, eGFR values calculated with the CKD-EPI equation are not accurate in patients wi th acute kidney failure, extremes of body mass or the acutely ill. [email or web address] Specimen Anatomical Collection Method Collection Time Receive d Time (Source) Location / / Volume Laterality Blood specimen 07/28/2019 8:36 AM 020 8:46 (specimen) EST AM EST Resulting Agency Comment Spec In Lab Danette Maxwell APRN CHEMISTRY ORDERABLES Performing Organization Address City/State/[place] [address] documented in this encounter Visit Diagnoses Diagnosis Chronic systolic heart failure documented in this encounter Care Teams Petal Cutter Relationship Specialty Start Date End Date Lovely Vicente MD PCP - General 04/16/[address] [place] [address] documented as of this encounter
--- OUTSIDE RECORDS SUMMARY | 2022-04-10 08:56 | XMS_ITS | Encounter Summary ---
:1945 Author Organization [place] [address] Care Team Providers Name Role Phone Lovely Vicente MD Primary Care Provider Reason for Visit Auth/Cert Specialty Diagnoses / Procedures Referred By Contact Refer red To Contact Diagnoses NSTEMI Procedures emerg ipi Referral ID Status Reason Start Date Expiration Date Visits Requ ested Visits Authorized [id number] 1 1 Encounter Details Date Type Department Care Team Description 12/10/2021 Surgery Legger Press Operator Asa Coulter MD CARDIAC CATHETERIZATION [facility] [place] [address] [place] [address] [phone] (Wo rk) Social History Tobacco Use Types [...] Peter PA-C Kelly LaFlamme PA-C Cardiovascular Medicine [phone] Discharge Diagnoses (Hospital Problems) and Secondary Diagnoses [...] 3.75 guiding catheter and a 3.[address] [facility] 20 Mhz using Manual pullback. Imaging was successful. Image quality was good. The ostial LCX showed moderate diffuse atherosclerotic plaque with scattered three quadrant calcification. Measurements were performed after pre-dilation. Post Intervention: The stent was well expanded and apposed. Intravascular Ultrasound was performed in the distal LM using a 7 Fr EBU 3.75 guiding catheter and a 3.[address] [facility] 20 Mhz using Manual pullback. Imaging was successful. Image quality was good. The distal LM showed moderate diffuse atherosclerotic plaque. Post Intervention: The stent was well expanded and apposed. Indication for Intervention: Coronary intervention was indicated for primary therapy for an acute myocardial infarction. The priority for the procedure was Urgent. The [facility] indication for the procedure was NSTE-ACS. [...] may require modification of this regimen. Consult [facility] Interventional Cardiology [...] vascular congestion and cardiomegaly. ?? TTE from [facility] 12/08/21 ? Prior Cardiac Studies: TTE 07/28/2019 [...] prior thyroidectomy in 2012 who presented to [facility] with 1 week progressing breathlessness with patient [...] 03/2021 with Liz Poole PA-C. ?? At [facility], respiratory distress with hypoxia 86% on room [...] appointments: During 8am-5pm Wednesday through Wednesday call [phone] to speak with a nurse in the cardiology clinic All other times call [phone] and ask to speak to the pivot maker carbon paper coating machine setter. Return to work: One week Driving: No driving for 48 hours after catheterization. Follow up Appointments: PCP Lovely Vicente MD [phone] to see patient at the end of December for annual check up. Patient to see Dr. Lorenzana at 1120 am at December 19 for a post hospital check up. Electric Car Operator Dr. De Oliveira to see you in [facility]. Left a message for office to set a date and time. Please call [phone] Nobles to see the patient for a same day cath in 2-3 weeks from now. Office to call with a date and time. For questions please call [phone] Home oxygen therapy: N/A Arrangements for VNA/home care: none Future Appointments and Orders Future Orders Complete By Expires Basic Metabolic Panel (non-fasting) [LAB15 Custom] 12/19/2021 (Approximate) 12/12/2022 Process Instructions: INCLUDES: Calcium, BUN, Creat, GFR, Glucose, Lytes Scheduling Instructions: Comments: Questions: Referral to Cardiac Rehab [SHE396 Custom] As directed Process Instructions: If no [...] appointments: During 8am-5pm Wednesday through Wednesday call [phone] to speak with a nurse in the cardiology clinic All other times call [phone] and ask to speak to the pivot maker carbon paper coating machine setter. Return to work: One week Driving: No driving for 48 hours after catheterization. Follow up Appointments: PCP Lovely Vicente MD [phone] to see patient at the end of December for annual check up. Patient to see Dr. Lorenzana at 1120 am at December 19 for a post hospital check up. Electric Car Operator Dr. De Oliveira to see you in [facility]. Left a message for office to set a date and time. Please call [phone] Nobles to see the patient for a same day cath in 2-3 weeks from now. Office to call with a date and time. For questions please call [phone] Home oxygen therapy: N/A Arrangements for VNA/home [...] Progress Note Patient Name: Don Fatima Service: DISTRICT CLAIMS MANAGER / PA Responsible Attending: Ifeanyi Truong [...] Affect: Mood normal. Lab Comments: Recent Labs 12/12/2145012/11/218 12/10/21 0425 WBC 7.9 8.8 9.4 HGB [...] pulmonary vascular congestion and cardiomegaly. TTE from [facility] 12/08/21 Prior Cardiac Studies: TTE 07/28/2019 SUMMARY: [...] with MD Janneth Neville PA 12/12/2021 Pager [phone] Associated attestation - Ifeanyi Truong MD - [...] ratio for each meal) Desirae Jett APRN [facility] Endocrinology Diabetes Management Pager [phone] 20 minutes of this 35 minute visit [...] Progress Note Patient Name: Don Fatima Service: DISTRICT CLAIMS MANAGER / PA Responsible Attending: Iker Cuevas [...] Intake/Output Summary (Last 24 hours) at 12/11/2021 0969 Last data filed at 12/11/2021 0508 Gross [...] Recent Labs 12/11/21427 INR 1.6 Recent Labs 12/11/21 0428 12/10/21 [...] pulmonary vascular congestion and cardiomegaly. TTE from [facility] 12/08/21 Prior Cardiac Studies: TTE 07/28/2019 SUMMARY: [...] cough), metoprolol dosing Plan to optimize GDMT (Dave Jardiance, spironolactone) post R/LHC ?? #Paroxysmal atrial fibrillation Currently in sinus rhythm. INR 2.3, given Vit K 2.5mg on 12/09 Daily INR Holding warfarin which is followed by his PCP. Home dosing 5 Mg HAYS/T/W// and 7.5 mg M/. [place] check DOAC, [...] and answered his questions. Iker Cuevas MD [facility] Total time spent on review of records prior to visit, face to face time with patient during visit, documentation, and coordination of care with other clinicians: 25 minutes. . Iker Cuevas MD - 12/10/2021 12:30 PM EDT Images from the original note were not included. Inpatient Cardiology Progress Note Patient Name: Don Fatima Service: DISTRICT CLAIMS MANAGER / PA Responsible Attending: Iker Cuevas [...] 0824) ??? heparin (porcine) infusion 1,600 Units/hr (12/09/217) PRN Meds:ipratropium-albuteroL, senna-docusate, bisacodyL, sodium chloride 0.9 [...] TROPONINT 1.13* 0.92* 0.89* Pertinent Radiographic/Diagnostic Results: R/[facility] 12/10/21 Hemodynamics: Right Heart Pressures Resting: [...] pulmonary vascular congestion and cardiomegaly. TTE from [facility] 12/08/21 Prior Cardiac Studies: TTE 07/28/2019 SUMMARY: [...] Discussed with MD Migdalia Peter PA-C Pager #[phone] 12/10/2021 Cardiology Attending Note I have seen [...] updated and given pictures. Iker Cuevas MD [facility] Total time spent on review of records prior to visit, face to face time with patient during visit, documentation, and coordination of care with other clinicians: 35 minutes. Iker Cuevas MD - 12/09/2021 7:28 AM EDT Images from the original note were not included. Inpatient Cardiology Progress Note Patient Name: Don Fatima Service: DISTRICT CLAIMS MANAGER / PA Responsible Attending: Iker Cuevas [...] pulmonary vascular congestion and cardiomegaly. TTE from [facility] 12/08/21 Prior Cardiac Studies: TTE 07/28/2019 SUMMARY: [...] Discussed with MD Migdalia Peter PA-C Pager #[phone] 12/09/2021 Cardiology Attending Note I have seen and examined the patient. I agree with the findings above. Developed CHF early this am despite getting more iv lasix last evening. Feeling better now. INR > 2. Lungs still wet at base. Echo at [facility] showed EF 35% with mild mod MR slightly lower than last value here. -vit K 2.5 orally to facilitate correction of INR- this will take 12-24 hours to take effect -furosemide 80 mg iv now -postpone right and left heart cath until tomorrow given INR and ADHF -increase statin to achieve LDL < 70 -CPAP tonight Iker Taverass MD [facility] Total time spent on review of records [...] prior thyroidectomy in 2012 who presented to [facility] with 1 week progressing breathlessness with patient [...] visit 03/2021 with Liz Poole PA-C. At [facility], respiratory distress with hypoxia 86% on room [...] [facility] OR ??? PRO AMPUTATION FOOT, TRANSMETATARSAL Right 08/09/2017 AMPUTATION, TRANSMETATARSAL (WRVU 12.71) performed by Yonathan Smith MD at [facility] MAIN OR ??? PRO CABG, ARTERIAL, SINGLE N/A 07/07/2017 @CABG, USING ARTERIAL GRAFT;SINGLE ARTERIAL GRAFT (WRVU 33.75) performed by Yuan eRtana MD at [facility] MA[facility] OR ??? PRO CABG, ARTERY-VEIN, TWO N/A 07/07/2017 @CABG, TWO VENOUS GRAFTS & ARTERIAL GRAFT (WRVU 7.93) performed by Yuan Retana MD at [facility] MAIN OR ??? PRO COLONOSCOPY, REMV LESN, SNARE 01/16/2014 COLONOSCOPY, POLYPECTOMY, REMOVAL LESION BY SNARE performed by Nohemi Jaimes MD at [facility] ENDOSCOPY ??? PRO DRESSING CHANGE UNDER ANESTHESIA Right 08/11/2017 (MSURG) DRESSING CHANGE (FOR OTHER THAN IVAN) UNDER ANES. (WRVU 0.86) performed by Lamar Smith MD at [facility] OR ??? PRO ENDOSCOPY W/VIDEO-ASST VEIN HARVEST, CABG Right 07/07/2017 ENDOSCOPIC HARVEST VEIN(S) FOR CABG (WRVU 0.31) performed by Yuan Retana MD at [facility] OR ??? PRO THYROIDECTOMY 03/28/2013 THYROIDECTOMY, TOTAL OR COMPLETE performed by Manny Mcknight MD at [facility] MA[facility] OR Significant Family History: Family [...] (H) 65 - 199 mg/dL Labs at [facility] 12/08/2021-troponin I 8004 (UN L <60), 12/07- [...] Monitor for ADRs. Trend troponins. Admission EKG. [facility] 12/09; consented. TTE. Telemetry monitoring, daily [...] code #Diet-carb control; n.p.o. after midnight for [facility] #DVT prophy- heparin infusion #GI prophy- PPI Discussed with MD Morgan Peter PA-C APP2 pager [phone] 12/08/2021 Cardiology Attending Note I have seen [...] is type 1 due to graft or [place] coronary stenosis vs acute injury from CHF. 3. PAF: currrently in NSR. Have replaced warfarin with heparin 4. PAD: stable 5. DM: stable 6. CKD: will monitor and minimize contrast. Pt very appreciative of Dr. Yuan Retana's care in 2018. Will let him know patient is here. Iker Cuevas MD [facility] documented in this encounter Miscellaneous Notes Care [...] Type: *No Product type* / Secondary Insurance: [employer] [place] Prescription Coverage: Yes This plan was [...] cath without complications. Migdalia Parker PA-C Pager #[phone] 12/10/2021 Initial Assessments - Nick Georges RN [...] COVID test: Lab Results Component Value Date [id number] Not Detected 12/08/2021 Past medical History: Past [...] 180 days) Any patient receiving care at [facility] must abide by [place] law. The hierarchy [...] standard, cane - straight Home Address: [address] [place] [address] [place] [address] Social & Family Supports: All names listed below confirmed with patient as current and correct Extended Emergency Contact Information Primary Emergency Contact: Kisha Fatima Address: [address] [place] [address] [place] [address] [facility] Mobile Relation: Spouse Secondary Emergency Contact: Elba Swenson Address: [place], [place] [id number] [place] [address] Mobile Relation: Child Current Care Provided by: [...] Type: *No Product type* / Secondary Insurance: [facility] Prescription Coverage: Yes Preferred Pharmacy: [facility] [id number] - [place], [place] - [address] [address] [place] Status: Patient is a : unable to assess Primary Care Provider: Lovely Vicente MD [phone] Patient/Caregiver Goals of Treatment: Get out of here Potential Needs for Transition of Care: none Agency Referrals: none patient has used [facility] in the past Transportation: no concerns Transportation Anticipated: family or friend will provide Concerns to be Addressed: patient refuses services, discharge planning Assessment: Patient is admitted to [facility] Service pager [phone] for 76 y.o.??male??with h/o??CAD s/p 3vCABG (THOMPSON-LAD, [...] improvement before arrivaland??with normal saturations off oxygen.??On 5/17 AM experienced acute hypoxia and dyspnea with [...] status on current unit. Nick Georges RN securities lending trader, Office of Care Management Pager: [phone] Brief Op Note - Vitaliy Nobles MD - 12/10/2021 8:31 AM EDT Images from the original note were not included. Formerly [facility] [place] [address] CORONARY ANGIOGRAM AND PERCUTANEOUS CORONARY INTERVENTION REPORT Patient: Don Fatima : 1945 MR number: [id number] Date of Service: 12/10/2021 Home And School Visitor: Vitaliy Nobles MD Fellow: Rancho Woods MD and Tobias Sun MD INDICATION: Don Veda Fatima??is a 76 y.o.??male??with h/o??CAD s/p 3vCABG [...] andis managed by his PCP. Lives in [place], [place] with his . States that he [...] oral powder 17 g Oral Daily ??? [MAR Hold] insulin lispro 0-12 Units Subcutaneous TID [...] 5 gm carb ratio for each meal) senior living diabetes care: Medications - Outpatient treatment regimen recommendations pending based on the hospital course. Monitoring - continue BG tid ac & hs Diet - low fat/low carb diet Exercise - weight-bearing exercise 30 min/day, as tolerated Thank you for allowing us to provide care for your patient Desirae Jett APRN Endocrinology Pager [phone] 70 minutes of this 80 minute visit [...] for further details. STEPHANIE Rebolledo 12/08/2021 Pager [phone] documented in this encounter Plan of Treatment Upcoming Encounters Date Type Specialty Care Team Description 05/28/2022 Appointment Cardiology Zulma Dolan MD [facility] [place], [place] [address] (Wo lissa) 05/28/2022 Laboratory Appointment Lab 05/28/2022 Office Visit Cardiology Zulma Dolan MD [facility] [place] [address] Liz Poole PA [facility] [place] [address] 06/10/2022 Office Visit Dermatology Laura Scherer MD [facility] DR TEJA [facility] [place], [place] [address] (Wo rk) Scheduled Referrals Name [...] 215 (H) 65 - 199 [facility] mg/dL [facility] Comment: Supplemental ranges: <140 mg/dL before meals <180 mg/dL all other times of the day Specimen Anatomical Collection Method Collection Time Receive d Time (Source) Location / / Volume Laterality Blood 12/12/2021 7:42 AM 7:42 EDT AM EDT Ifeanyi Truong MD POINT OF CARE TEST ORDERABLE S Performing Organization Address City/State/[place] [address] (ABNORMAL) Differential, Automated (12/12/2021 4:51 AM EDT) athologist Signature Neutrophils % 75.4 % [facility] Neutr Abs (ANC) 5.95 1.70 - [facility] 6.10 [facility] x10(3)/[facility] LABORATORY Lymphocytes % 12.2 % [facility] Lymphocytes Abs 1.0 0.9 - 3.2 [facility] x10(3)/[facility] LABORATORY Monocytes % 9.5 % [facility] Monocyte Abs 0.8 0.3 - 0.9 [facility] x10(3)/[facility] LABORATORY Eosinophils % 1.8 % [facility] Eosinophils Abs 0.1 0.0 - 0.4 [facility] x10(3)/[facility] LABORATORY Basophils % 0.5 % [facility] Basophils Abs 0.0 0.0 - 0.1 [facility] x10(3)/[facility] LABORATORY Immature Gran % 0.60 [...] Address City/State/ZIP Code Phon e Number [address] (ABNORMAL) Hemogram (12/12/2021 4:51 AM EDT) Analysis Performed At Patho logist Time Signature WBC 7.9 4.0 - 9.5 [facility] LABORATORY RBC 4.19 (L) 4.58 - [place] 5.54 [facility] x10(6)/[facility] LABORATORY Hemoglobin 12.1 (L) 13.7 - [place] 16.5 g/dL [facility] Hematocrit 36.7 (L) 40.5 - [facility] 48.5 % [facility] MCV 87.6 82.9 - [facility] 93.1 [facility] LABORATORY MCH 28.9 27.5 - [place] 32.1 pg [facility] MCHC 33.0 32.0 - [place] 35.7 g/dL [facility] Platelets 231 145 - 357 [facility] x10(3)/[facility] LABORATORY RDWSD 47.2 (H) 36.0 - [facility] 45.0 [facility] LABORATORY RDWCV 14.6 (H) 11.4 - [facility] 13.8 % [facility] MPV 9.5 7.6 - 12.9 [facility] LABORATORY nRBC % Auto 0.0 % [facility] nRBC Abs Auto 0.000 0.000 - [place] 0.000 [facility] x10(3)/[facility] LABORATORY Specimen Anatomical Collection Method Collection Time Receive d Time (Source) Location / / Volume Laterality Blood 12/12/2021 4:51 AM 2 5:06 EDT AM EDT Resulting Agency Comment Spec In Lab Bijan Sun MD HEMATOLOGY ORDERABLES Performing Organization Address City/[facility]/[place] [address] (ABNORMAL) Prothrombin Time (12/12/2021 4:51 AM EDT) athologist Signature PT 14.9 (H) 9.4 - 12.5 [facility] LABORATORY INR 1.3 [facility] Comment: [...] Organization Address City/State/[place] [address] (ABNORMAL) BMP w/fasting Glucose (12/12/2021 4:51 AM EDT) athologist Signature Glucose 152 (H) 65 - 99 [facility] Fasting mg/dL [facility] Comment: ?Fasting* Glucose Interpretive C [...] of Diabetes Mellitus, Position Statement from the [employer]. ??Diabete s Care, Volume 33, [...] Organization Address City/State/[place] [address] Magnesium (12/12/2021 4:51 AM EDT) athologist Signature Magnesium 1.02 0.69 - 1.07 [place] mmol/L [facility] Specimen Anatomical Collection Method Collection Time Receive d Time (Source) Location / / Volume Laterality Blood 12/12/2021 4:51 AM 2 5:06 EDT AM EDT Resulting Agency Comment Spec In Lab Iker Cuevas MD CHEMISTRY ORDERABLES Performing Organization Address City/[facility]/ZIP Code Phon e Number [address] POCT Glucose (12/12/2021 3:43 AM EDT) athologist Signature POC Glucose 138 65 - 199 [facility] mg/dL [facility] Comment: Supplemental ranges: <140 mg/dL before meals <180 mg/dL all other times of the day Specimen Anatomical Collection Method Collection Time Receive d Time (Source) Location / / Volume Laterality Blood 12/12/2021 3:43 AM 2 3:43 EDT AM EDT Iker Cuevas MD POINT OF CARE TEST ORDERABLE S Performing Organization Address City/State/ZIP Code Phon e Number [address] POCT Glucose (12/11/2021 11:44 PM EDT) athologist Signature POC Glucose 124 65 - 199 [place] mg/dL [facility] Comment: Supplemental ranges: <140 mg/dL before meals <180 mg/dL all other times of the day Specimen Anatomical Collection Method Collection Time Receive d Time (Source) Location / / Volume Laterality Blood 12/11/2021 11:44 12/11/2021 PM EDT 11:44 PM EDT Iker Cuevas MD POINT OF CARE TEST ORDERABLE S Performing Organization Address City/State/ZIP Code Phon e Number [address] (ABNORMAL) POCT Glucose (12/11/2021 8:12 PM EDT) athologist Signature POC Glucose 200 (H) 65 - 199 [place] mg/dL [facility] Comment: Supplemental ranges: <140 mg/dL before meals <180 mg/dL all other times of the day Specimen Anatomical Collection Method Collection Time Receive d Time (Source) Location / / Volume Laterality Blood 12/11/2021 8:12 PM 2 8:12 EDT PM EDT Iker Cuevas MD POINT OF CARE TEST ORDERABLE S Performing Organization Address City/State/[place] [address] (ABNORMAL) POCT Glucose (12/11/2021 6:50 PM EDT) P athologist Signature POC Glucose 245 (H) 65 - 199 [place] mg/dL [facility] Comment: Supplemental ranges: <140 mg/dL before meals <180 mg/dL all other times of the day Specimen Anatomical Collection Method Collection Time Receive d Time (Source) Location / / Volume Laterality Blood 12/11/2021 6:50 PM 2 6:50 EDT PM EDT Iker Cuevas MD POINT OF CARE TEST ORDERMATTHEW S Performing Organization Address City/State/[place] [address] (ABNORMAL) POCT Glucose (12/11/2021 4:00 PM EDT) P athologist Signature POC Glucose 383 (H) 65 - 199 [facility] mg/dL [facility] Comment: Supplemental ranges: <140 mg/dL before meals <180 mg/dL all other times of the day Specimen Anatomical Collection Method Collection Time Receive d Time (Source) Location / / Volume Laterality Blood 12/11/2021 4:00 PM 2 4:00 EDT PM EDT Iker Cuevas MD POINT OF CARE TEST ORDERABLE S Performing Organization Address City/State/[place] [address] (ABNORMAL) POCT Glucose (12/11/2021 12:01 PM EDT) P athologist Signature POC Glucose 342 (H) 65 - 199 [place] mg/dL [facility] Comment: Supplemental ranges: <140 mg/dL before meals <180 mg/dL all other times of the day Specimen Anatomical Collection Method Collection Time Receive d Time (Source) Location / / Volume Laterality Blood 12/11/2021 12:01 12/11/2021 PM EDT 12:01 PM EDT Iker Cuevas MD POINT OF CARE TEST ORDERABLE S Performing Organization Address City/State/ZIP Code [place] [address] COVID-19 PCR (12/11/2021 10:13 AM EDT) [facility] Method Time Signature SARS-CoV-2 Not Detected Not Detected [facility] RNA [facility] Comment: This result should be [...] diagnosis of COVID-19 is performed using the [employer] S-CoV-2 Assay as authorized by the FDA Emergency Use Authorization (EUA). This EUA assay is intended for In-vitro Diagnostic (IVD) use with respiratory sp ecimens such as nasopharyngeal swabs collected from individuals during the ac [place] phase of infection. This assay is performed based on the instructions for use provided by [employer] and additional guidance provided by CDC [...] is infected. As required or requested by [facility], positive specimens may be sent for [...] fact sheets at the following FDA website: https://www.fda.gov/medical-devices/wtzxvrawyqe-ebcifrh-4740-rshve-84-ykdxrwssj- jji-ppxqfaezcsmyce-flcwoed-devices/ttxrk-ufhkugigcqk-fbfu SARS-Cov-2 RNA Source DISTRICT CLAIMS MANAGER Swab [facility] Specimen (Source) Anatomical Collection Method Collection Time Re ceived Time Location / / Volume Laterality Nasopharyngeal Swab 12/11/2021 10:13 11/23 AM EDT 11:16 AM EDT Comment: Symptoms->Surveillance Resulting Agency Comment Spec In Lab Iker Cuevas MD MICROBIOLOGY - GENERAL ORDER [place] Performing Organization Address City/State/[place] [address] POCT Glucose (12/11/2021 7:34 AM EDT) P athologist Signature POC Glucose 198 65 - 199 [facility] mg/dL [facility] Comment: Supplemental ranges: <140 mg/dL before meals <180 mg/dL all other times of the day Specimen Anatomical Collection Method Collection Time Receive d Time (Source) Location / / Volume Laterality Blood 12/11/2021 7:34 AM 2 7:34 EDT AM EDT Iker Cuevas MD POINT OF CARE TEST ORDERABLE S Performing Organization Address City/State/[place] [address] (ABNORMAL) POCT Glucose (12/11/2021 5:07 AM EDT) P athologist Signature POC Glucose 208 (H) 65 - 199 [facility] Comment: Supplemental ranges: <140 mg/dL before meals <180 mg/dL all other times of the day Specimen Anatomical Collection Method Collection Time Receive d Time (Source) Location / / Volume Laterality Blood 12/11/2021 5:07 AM 2 5:07 EDT AM EDT Iker Cuevas MD POINT OF CARE TEST ORDERABLE S Performing Organization Address City/State/[place] [address] (ABNORMAL) Differential, Automated (12/11/2021 4:28 AM EDT) Patholo gist Method Time Signature Neutrophils % 79.6 % [facility] Neutr Abs (ANC) 7.01 (H) 1.70 - [facility] 6.10 [facility] x10(3)/[facility] L LABORATORY Lymphocytes % 9.1 % [facility] Lymphocytes Abs 0.8 (L) 0.9 - 3.2 [facility] x10(3)/[facility] LABORATORY Monocytes % 9.2 % [facility] Monocyte Abs 0.8 0.3 - 0.9 [facility] x10(3)/[facility] LABORATORY Eosinophils % 1.3 % [facility] Eosinophils Abs 0.1 0.0 - 0.4 [facility] x10(3)/[facility] LABORATORY Basophils % 0.5 % [facility] Basophils Abs 0.0 0.0 - 0.1 [facility] x10(3)/[facility] LABORATORY Immature Gran % [...] Melisa Gran Abs 0.03 0.00 - 0.04 x10(3)/[facility] Specimen Anatomical Collection Method Collection Time Receive d Time (Source) Location / / Volume Laterality Blood 12/11/2021 4:28 AM 4:37 EDT AM EDT Resulting Agency Comment Spec In Lab Bijan Sun MD HEMATOLOGY ORDERABLES Performing Organization Address City/State/ZIP Code Phon e Number [place] [id number] (ABNORMAL) Hemogram (12/11/2021 4:28 AM EDT) Analysis Performed At Patho logist Time Signature WBC 8.8 4.0 - 9.5 [facility] x10(3)/[facility] LABORATORY RBC 4.15 (L) 4.58 - [facility] 5.54 [facility] x10(6)/[facility] LABORATORY Hemoglobin 11.9 (L) 13.7 - [facility] 16.5 g/dL [facility] Hematocrit 36.9 (L) 40.5 - [facility] 48.5 % [facility] MCV 88.9 82.9 - [facility] 93.1 [facility] LABORATORY MCH 28.7 27.5 - [facility] 32.1 pg [facility] MCHC 32.2 32.0 - [facility] 35.7 g/dL [facility] Platelets 211 145 - 357 [facility] x10(3)/[facility] LABORATORY RDWSD 48.3 (H) 36.0 - [facility] 45.0 [facility] LABORATORY RDWCV 14.8 (H) 11.4 - [facility] 13.8 % [facility] MPV 9.6 7.6 - 12.9 [facility] LABORATORY nRBC % Auto 0.0 % [facility] nRBC Abs Auto 0.000 0.000 - [facility] 0.000 [facility] x10(3)/[facility] LABORATORY Specimen Anatomical Collection Method Collection Time Receive d Time (Source) Location / / Volume Laterality Blood 12/11/2021 4:28 AM 2 4:37 EDT AM EDT Resulting Agency Comment Spec In Lab Bijan Sun MD HEMATOLOGY ORDERABLES Performing Organization Address City/[facility]/ZIP [facility] [place] [address] (ABNORMAL) Prothrombin Time (12/11/2021 4:28 AM EDT) P athologist Signature PT 17.7 (H) 9.4 - 12.5 [facility] LABORATORY INR 1.6 [facility] Comment: [...] Ceuvas MD HEMATOLOGY ORDERABLES Performing Organization Address City/[facility]/[place] [address] (ABNORMAL) BMP w/fasting Glucose (12/11/2021 4:28 AM EDT) P athologist Signature Glucose 207 (H) 65 - 99 [facility] Fasting mg/dL [facility] Comment: ?Fasting* Glucose Interpretive C [...] of Diabetes Mellitus, Position Statement from the [employer]. ??Diabete s Care, Volume 33, [...] Cuevas MD CHEMISTRY ORDERABLES Performing Organization Address City/[facility]/[place] [address] Magnesium (12/11/2021 4:28 AM EDT) athologist Signature Magnesium 1.04 0.69 - 1.07 [facility] mmol/L [facility] Specimen Anatomical Collection Method Collection Time Receive d Time (Source) Location / / Volume Laterality Blood 12/11/2021 4:28 AM 2 4:37 EDT AM EDT Resulting Agency Comment Spec In Lab Iker Cuevas MD CHEMISTRY ORDERABLES Performing Organization Address City/[facility]/ZIP Code Phon e Number [address] POCT Glucose (12/11/2021 3:58 AM EDT) athologist Signature POC Glucose 189 65 - 199 [facility] mg/dL [facility] Comment: Supplemental ranges: <140 mg/dL before meals <180 mg/dL all other times of the day Specimen Anatomical Collection Method Collection Time Receive d Time (Source) Location / / Volume Laterality Blood 12/11/2021 3:58 AM 2 3:58 EDT AM EDT Iker Cuevas MD POINT OF CARE TEST ORDERABLE S Performing Organization Address City/[facility]/[place] [address] (ABNORMAL) POCT Glucose (12/10/2021 11:45 PM EDT) athologist Signature POC Glucose 205 (H) 65 - 199 [facility] mg/dL [facility] Comment: Supplemental ranges: <140 mg/dL before meals <180 mg/dL all other times of the day Specimen Anatomical Collection Method Collection Time Receive d Time (Source) Location / / Volume Laterality Blood 12/10/2021 11:45 12/10/2021 PM EDT 11:45 PM EDT Iker Cuevas MD POINT OF CARE TEST ORDERABLE S Performing Organization Address City/[facility]/[place] [address] (ABNORMAL) POCT Glucose (12/10/2021 7:54 PM EDT) athologist Signature POC Glucose 225 (H) 65 - 199 [facility] mg/dL [facility] Comment: Supplemental ranges: <140 mg/dL before meals <180 mg/dL all other times of the day Specimen Anatomical Collection Method Collection Time Receive d Time (Source) Location / / Volume Laterality Blood 12/10/2021 7:54 PM 2 7:54 EDT PM EDT Iker Cuevas MD POINT OF CARE TEST ORDERABLE S Performing Organization Address City/[facility]/[place] [address] Potassium (12/10/2021 7:46 PM EDT) athologist [facility] Potassium 4.2 3.5 - 5.0 [facility] mmol/L [facility] Comment: Please note: ??Patients with [...] Cuevas MD CHEMISTRY ORDERABLES Performing Organization Address City/[facility]/ZIP [facility] [place] [address] (ABNORMAL) Basic Metabolic Panel (non-fasting) (12/10/2021 6:12 PM EDT) athologist Signature Glucose Lvl 246 (H) 65 - 199 [facility] mg/dL [facility] Comment: Diabetes: >=200 mg/dL [...] Address City/State/ZIP Code Phon e Number [address] POCT Glucose (12/10/2021 4:59 PM EDT) P athologist Signature POC Glucose 158 65 - 199 [facility] mg/dL [facility] Comment: Supplemental ranges: <140 mg/dL before meals <180 mg/dL all other times of the day Specimen Anatomical Collection Method Collection Time Receive d Time (Source) Location / / Volume Laterality Blood 12/10/2021 4:59 PM 2 4:59 EDT PM EDT Iker Cuevas MD POINT OF CARE TEST ORDERABLE S Performing Organization Address City/State/[place] [address] (ABNORMAL) POCT Glucose (12/10/2021 12:43 PM EDT) P athologist Signature POC Glucose 241 (H) 65 - 199 [facility] mg/dL [facility] Comment: Supplemental ranges: <140 mg/dL before meals <180 mg/dL all other times of the day Specimen Anatomical Collection Method Collection Time Receive d Time (Source) Location / / Volume Laterality Blood 12/10/2021 12:43 12/10/2021 PM EDT 12:43 PM EDT Iker Cuevas MD POINT OF CARE TEST ORDERABLE S Performing Organization Address City/State/[place] [address] EKG 12 Lead (12/10/2021 11:17 AM EDT) Component Value Ref Range Test Analysis Performed Pathologis t Method Time At Signature Ventricular rate 62 BPM MUSE SYSTEM Atrial Rate 62 BPM MUSE SYSTEM P-R Interval 142 ms MUSE SYSTEM QRS Duration 100 ms MUSE SYSTEM Q-T Interval 434 ms MUSE SYSTEM QTC Calculated 440 ms MUSE SYSTEM (Bezet) Calculated P [place] 34 degrees MUSE SYSTEM Calculated R [place] -39 degrees MUSE SYSTEM Calculated T [place] 92 degrees MUSE SYSTEM INTERPRETATION Normal sinus rhythm MUSE SYSTEM Left axis deviation Minimal voltage criteria for LVH, may be normal variant ( [place] product ) Cannot rule out Inferior infarct [...] Laterality Volume Narrative 12/10/2021 12:04 PM EDT ?[facility] ? Cardiac Cathete rization/Intervention Report ? Patient Name: Don FatimaMadiha ? Procedure Date: 12/10/2021 ? A #: [id number] ? Primary Physician: Nobles, Vitaliy P ? Case #: [id number] ? File Name: [id number] ? Catheterization Order Number: [id number] ? [facility] ? Final Report [place], [place] ? Patient Name: ? Don E. Stewa rt ? ID#: ?[id number] ? : ?1945 ? Procedure Date: ? [...] ?3.75 guiding catheter and a 3.5 [address] [facility] 20 Mhz using Manual ?pullback. ??Imaging was [...] ?3.75 guiding catheter and a 3.5 Fr [address] [facility] 20 Mhz using Manual ?pullback. ??Imaging was [...] Don Fatima Procedure Date: 12/10/2021 A #: [id number] Primary Physician: Vitaliy Nobles Case #: [id number] File Name: [id number] Catheterization Order Number: [id number] [facility] Final Report [place], [place] Patient Name: Don Fatima ID#: [...] and a 3.[address] [facility] [place] 20 Mhz using Manual pullback. Imaging was [...] and a 3.[address] [facility] [place] 20 Mhz using Manual pullback. Imaging was [...] require modification of this regimen. Consult D [facility] Interventional Cardiology for questions. The 1 year [...] 262 (H) 65 - 199 [facility] mg/dL [facility] Comment: Supplemental ranges: <140 mg/dL before meals <180 mg/dL all other times of the day Specimen Anatomical Collection Method Collection Time Receive d Time (Source) Location / / Volume Laterality Blood 12/10/2021 10:30 12/10/2021 AM EDT 10:30 AM EDT Iker Cuevas MD POINT OF CARE TEST ORDERABLE S Performing Organization Address City/State/[place] [address] (ABNORMAL) POCT Glucose (12/10/2021 9:48 AM EDT) athologist Signature POC Glucose 279 (H) 65 - 199 [facility] mg/dL [facility] Comment: Supplemental ranges: <140 mg/dL before meals <180 mg/dL all other times of the day Specimen Anatomical Collection Method Collection Time Receive d Time (Source) Location / / Volume Laterality Blood 12/10/2021 9:48 AM 2 9:48 EDT AM EDT Iker Cuevas MD POINT OF CARE TEST ORDERABLE S Performing Organization Address City/[facility]/[place] [address] (ABNORMAL) POCT Glucose (12/10/2021 9:07 AM EDT) P athologist Signature POC Glucose 268 (H) 65 - 199 [facility] mg/dL [facility] Comment: Supplemental ranges: <140 mg/dL before meals <180 mg/dL all other times of the day Specimen Anatomical Collection Method Collection Time Receive d Time (Source) Location / / Volume Laterality Blood 12/10/2021 9:07 AM 2 9:07 EDT AM EDT Iker Cuevas MD POINT OF CARE TEST ORDERABLE S Performing Organization Address City/State/[place] [address] (ABNORMAL) Point of Care Blood Gas Historical (12/10/2021 9:04 AM EDT) [facility] Method Time Signature POC pH 7.40 7.35 - [facility] 7.45 [facility] POC PCO2 40 35 - 45 [facility] LABORATORY POC PO2 63 (L) 85 - 104 [facility] LABORATORY POC Base Excess 0.0 -3.0 - 3.0 [facility] K mmol/L [facility] POC HCO3 24.8 20.0 - [facility] 26.0 [facility] POC Sodium 143 135 - 145 [facility] mmol/L [facility] POC Potassium 3.7 3.5 - 5.0 [facility] mmol/L [facility] POC Ionized Ca 1.07 (L) 1.15 - [facility] 1.33 [facility] POC Hematocrit 30.0 (L) 40.0 - [facility] 51.0 % [facility] POC Calc Hgb 10.2 (L) 13.7 - [facility] 17.5 g/dL [facility] Comment: The calculation of hemoglobin f rom hematocrit assumes a normal MCHC. POC Bgas Loc CC LAB [facility]OR[facility]ORY Specimen Anatomical Collection Method Collection Time Receive d Time (Source) Location / / Volume Laterality Blood 12/10/2021 9:04 AM 2 EDT 12:00 PM EDT Ifeanyi Truong MD CHEMISTRY ORDERABLES Performing Organization Address City/State/[place] [address] (ABNORMAL) POCT Glucose (12/10/2021 7:19 AM EDT) P athologist Signature POC Glucose 274 (H) 65 - 199 [facility] mg/dL [facility] Comment: Supplemental ranges: <140 mg/dL before meals <180 mg/dL all other times of the day Specimen Anatomical Collection Method Collection Time Receive d Time (Source) Location / / Volume Laterality Blood 12/10/2021 7:19 AM 2 7:19 EDT AM EDT Iker Cuevas MD POINT OF CARE TEST ORDERABLE S Performing Organization Address City/State/[place] [address] Heparin (unfractionated) Level (12/10/2021 4:25 AM EDT) P athologist Signature Heparin UFH 0.69 IU/mL [facility] Comment: Heparin (anti-Xa) levels should [...] City/State/ZIP Code Phon e Number [place] [id number] Drive (ABNORMAL) Differential, Automated (12/10/2021 4:25 AM EDT) Patholo gist Method Time Signature Neutrophils % 79.8 % [facility] Neutr Abs (ANC) 7.47 (H) 1.70 - [facility] 6.10 [facility] x10(3)/[facility] L LABORATORY Lymphocytes % 10.6 % [facility] Lymphocytes Abs 1.0 0.9 - 3.2 [facility] x10(3)/[facility] LABORATORY Monocytes % 8.4 % [facility] Monocyte Abs 0.8 0.3 - 0.9 [facility] x10(3)/[facility] LABORATORY Eosinophils % 0.6 % [facility] Eosinophils Abs 0.1 0.0 - 0.4 [facility] x10(3)/[facility] LABORATORY Basophils % 0.2 % [facility] Basophils Abs 0.0 0.0 - 0.1 [facility] x10(3)/[facility] LABORATORY Immature Gran % [...] Melisa Gran Abs 0.04 0.00 - 0.04 x10(3)/[facility] Specimen Anatomical Collection Method Collection Time Receive d Time (Source) Location / / Volume Laterality Blood 12/10/2021 4:25 AM 4:34 EDT AM EDT Resulting Agency Comment Spec In Lab Morgan BROWN HEMATOLOGY ORDERABLES Performing Organization Address City/State/[place] [address] (ABNORMAL) Hemogram (12/10/2021 4:25 AM EDT) Analysis Performed At Patho logist Time Signature WBC 9.4 4.0 - 9.5 [facility] x10(3)/[facility] LABORATORY RBC 3.81 (L) 4.58 - [facility] 5.54 [facility] x10(6)/[facility] LABORATORY Hemoglobin 11.1 (L) 13.7 - [facility] 16.5 g/dL [facility] Hematocrit 34.0 (L) 40.5 - [facility] 48.5 % [facility] MCV 89.2 82.9 - [facility] 93.1 [facility] LABORATORY MCH 29.1 27.5 - [facility] 32.1 pg [facility] MCHC 32.6 32.0 - [facility] 35.7 g/dL [facility] Platelets 183 145 - 357 [facility] x10(3)/[facility] LABORATORY RDWSD 49.9 (H) 36.0 - [facility] 45.0 [facility] LABORATORY RDWCV 15.2 (H) 11.4 - [facility] 13.8 % [facility] MPV 9.8 7.6 - 12.9 [facility] LABORATORY nRBC % Auto 0.0 % [facility] nRBC Abs Auto 0.000 0.000 - [facility] 0.000 [facility] x10(3)/[facility] LABORATORY Specimen Anatomical Collection Method Collection Time Receive d Time (Source) Location / / Volume Laterality Blood 12/10/2021 4:25 AM 2 4:34 EDT AM EDT Resulting Agency Comment Spec In Lab Morgan BROWN HEMATOLOGY ORDERABLES Performing Organization Address City/[facility]/ZIP Code Phon e Number [address] (ABNORMAL) Prothrombin Time (12/10/2021 4:25 AM EDT) P athologist Signature PT 20.0 (H) 9.4 - 12.5 [facility] LABORATORY INR 1.7 [facility] Comment: [...] Cuevas MD HEMATOLOGY ORDERABLES Performing Organization Address City/[facility]/[place] [address] (ABNORMAL) BMP w/fasting Glucose (12/10/2021 4:25 AM EDT) P athologist Signature Glucose 210 (H) 65 - 99 [facility] Fasting mg/dL [facility] Comment: ?Fasting* Glucose Interpretive C [...] of Diabetes Mellitus, Position Statement from the [employer]. ??Diabete s Care, Volume 33, [...] Organization Address City/State/[place] [address] Magnesium (12/10/2021 4:25 AM EDT) athologist Signature Magnesium 0.95 0.69 - 1.07 [facility] mmol/L [facility] Specimen Anatomical Collection Method Collection Time Receive d Time (Source) Location / / Volume Laterality Blood 12/10/2021 4:25 AM 2 4:34 EDT AM EDT Resulting Agency Comment Spec In Lab Iker Cuevas MD CHEMISTRY ORDERABLES Performing Organization Address City/[facility]/[place] [address] POCT Glucose (12/10/2021 1:58 AM EDT) athologist Signature POC Glucose 164 65 - 199 [facility] mg/dL [facility] Comment: Supplemental ranges: <140 mg/dL before meals <180 mg/dL all other times of the day Specimen Anatomical Collection Method Collection Time Receive d Time (Source) Location / / Volume Laterality Blood 12/10/2021 1:58 AM 2 1:58 EDT AM EDT Iker Cuevas MD POINT OF CARE TEST ORDERABLE S Performing Organization Address City/[facility]/ZIP Code Phon e Number [address] (ABNORMAL) POCT Glucose (12/09/2021 9:02 PM EDT) athologist Signature POC Glucose 313 (H) 65 - 199 [facility] mg/dL [facility] Comment: Supplemental ranges: <140 mg/dL before meals <180 mg/dL all other times of the day Specimen Anatomical Collection Method Collection Time Receive d Time (Source) Location / / Volume Laterality Blood 12/09/2021 9:02 PM 2 9:02 EDT PM EDT Iker Cuevas MD POINT OF CARE TEST ORDERABLE S Performing Organization Address City/[facility]/[place] [address] Heparin (unfractionated) Level (12/09/2021 7:30 PM EDT) athologist Signature Heparin UFH 0.48 IU/mL [facility] LABORATORY Comment: Heparin (anti-Xa) levels should [...] Organization Address City/State/[place] [address] (ABNORMAL) Basic Metabolic Panel (non-fasting) (12/09/2021 7:30 PM EDT) athologist Signature Glucose Lvl 372 (H) 65 - 199 [facility] mg/dL [facility] Comment: Diabetes: >=200 mg/dL [...] Organization Address City/State/[place] [address] (ABNORMAL) POCT Glucose (12/09/2021 6:34 PM EDT) athologist Signature POC Glucose 408 (H) 65 - 199 [facility] mg/dL [facility] Comment: Supplemental ranges: <140 mg/dL before meals <180 mg/dL all other times of the day Specimen Anatomical Collection Method Collection Time Receive d Time (Source) Location / / Volume Laterality Blood 12/09/2021 6:34 PM 2 6:34 EDT PM EDT Iker Cuevas MD POINT OF CARE TEST ORDERABLE S Performing Organization Address City/State/[place] [address] (ABNORMAL) POCT Glucose (12/09/2021 6:32 PM EDT) athologist Signature POC Glucose 356 (H) 65 - 199 [facility] mg/dL [facility] Comment: Supplemental ranges: <140 mg/dL before meals <180 mg/dL all other times of the day Specimen Anatomical Collection Method Collection Time Receive d Time (Source) Location / / Volume Laterality Blood 12/09/2021 6:32 PM 2 6:32 EDT PM EDT Iker Cuevas MD POINT OF CARE TEST ORDERABLE S Performing Organization Address City/[facility]/[place] [address] (ABNORMAL) POCT Glucose (12/09/2021 4:19 PM EDT) athologist Signature POC Glucose 347 (H) 65 - 199 [facility] mg/dL [facility] Comment: Supplemental ranges: <140 mg/dL before meals <180 mg/dL all other times of the day Specimen Anatomical Collection Method Collection Time Receive d Time (Source) Location / / Volume Laterality Blood 12/09/2021 4:19 PM 2 4:19 EDT PM EDT Iker Cuevas MD POINT OF CARE TEST ORDERABLE S Performing Organization Address City/State/[place] [address] Heparin (unfractionated) Level (12/09/2021 1:29 PM EDT) athologist Signature Heparin UFH 0.42 IU/mL [facility] LABORATORY Comment: Heparin (anti-Xa) levels should [...] Organization Address City/State/[place] [address] (ABNORMAL) POCT Glucose (12/09/2021 12:02 PM EDT) athologist Signature POC Glucose 235 (H) 65 - 199 [facility] mg/dL [facility] Comment: Supplemental ranges: <140 mg/dL before meals <180 mg/dL all other times of the day Specimen Anatomical Collection Method Collection Time Receive d Time (Source) Location / / Volume Laterality Blood 12/09/2021 12:02 12/09/2021 PM EDT 12:02 PM EDT Iker Cuevas MD POINT OF CARE TEST ORDERABLE S Performing Organization Address City/State/[place] [address] (ABNORMAL) POCT Glucose (12/09/2021 9:44 AM EDT) athologist Signature POC Glucose 214 (H) 65 - 199 [facility] mg/dL [facility] Comment: Supplemental ranges: <140 mg/dL before meals <180 mg/dL all other times of the day Specimen Anatomical Collection Method Collection Time Receive d Time (Source) Location / / Volume Laterality Blood 12/09/2021 9:44 AM 2 9:44 EDT AM EDT Iker Cuevas MD POINT OF CARE TEST ORDERABLE S Performing Organization Address City/[facility]/[place] [address] EKG 12 Lead (12/09/2021 7:57 AM EDT) Component Value Ref Range Test Analysis Performed Pathologis t Method Time At Signature Ventricular rate 101 BPM MUSE SYSTEM Atrial Rate 101 BPM MUSE SYSTEM P-R Interval 150 ms MUSE SYSTEM QRS Duration 112 ms MUSE SYSTEM Q-T Interval 364 ms MUSE SYSTEM QTC Calculated 471 ms MUSE SYSTEM (Bezet) Calculated P [place] 59 degrees MUSE SYSTEM Calculated R [place] -42 degrees MUSE SYSTEM Calculated T [place] 102 degrees MUSE SYSTEM INTERPRETATION Sinus tachycardia Occasional Premature ventricular com plexes MUSE SYSTEM Left axis deviation 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) Abnormal ECG When compared with ECG of 08-DEC-2021 16:40, Premature ventricular complexes are now Present Confirmed by MD Fernandez Danette ([id number]) on 12/10/2021 4:55:06 PM Specimen Anatomical Collection Method Collection Time Receive d Time (Source) Location / / Volume Laterality 12/09/2021 7:57 AM 2 4:55 EDT PM EDT Iker Cuevas MD ECG ORDERABLES Performing Organization Address City/State/ZIP Code Phon e Number MUSE SYSTEM (ABNORMAL) POCT Glucose (12/09/2021 7:28 AM EDT) P athologist Signature POC Glucose 263 (H) 65 - 199 [facility] Comment: Supplemental ranges: <140 mg/dL before meals <180 mg/dL all other times of the day Specimen Anatomical Collection Method Collection Time Receive d Time (Source) Location / / Volume Laterality Blood 12/09/2021 7:28 AM 2 7:28 EDT AM EDT Iker Cuevas MD POINT OF CARE TEST ORDERABLE S Performing Organization Address City/State/ZIP Code Phon e Number [place] [id number]ORY [address] (ABNORMAL) Hemoglobin A1c (12/09/2021 [...] Mellitus, Diabetes Care 2013; 36: Suppl. 1, L47-22 Est Avg Gluc See note mg/dL [facility] [...] on e ADA website. Macario HAMMOND, Ruthann Martinez, Deysi R, et al. ??Tr anslating the A1C assay into estimated average glucose values. ??Diabetes Care 2008:31(8):6901-1865. Specimen Anatomical Collection Method Collection Time Receive d Time (Source) Location / / Volume Laterality Blood Venous Draw / 12/09/2021 6:18 AM 12/10/19 22 Unknown EDT 12:24 PM EDT Resulting Agency Comment Spec In Lab Migdalia BROWN CHEMISTRY ORDERABLES Performing Organization Address [facility] [place] [address] (ABNORMAL) Prothrombin Time (12/09/2021 6:18 AM EDT) athologist Signature PT 26.6 (H) 9.4 - 12.5 [facility] LABORATORY INR 2.3 [facility] Comment: [...] Migdalia BROWN HEMATOLOGY ORDERABLES Performing Organization Address [facility] [place] [address] Heparin (unfractionated) Level (12/09/2021 6:18 AM EDT) P athologist Signature Heparin UFH 0.24 IU/mL [facility] LABORATORY Comment: Heparin (anti-Xa) levels should [...] Organization Address City/State/[place] [address] (ABNORMAL) Differential, Automated (12/09/2021 6:18 AM EDT) [facility] Method Time Signature Neutrophils % 91.5 % [facility] Neutr Abs (ANC) 15.78 (H) 1.70 - [facility] 6.10 [facility] x10(3)/[facility] LABORATORY Lymphocytes % 2.9 % [facility] Lymphocytes Abs 0.5 (L) 0.9 - 3.2 [facility] x10(3)/[facility] LABORATORY Monocytes % 4.9 % [facility] Monocyte Abs 0.8 0.3 - 0.9 [facility] x10(3)/[facility] LABORATORY Eosinophils % 0.0 % [facility] Eosinophils Abs 0.0 0.0 - 0.4 [facility] x10(3)/[facility] LABORATORY Basophils % 0.2 % [facility] Basophils Abs 0.0 0.0 - 0.1 [facility] x10(3)/[facility] LABORATORY Immature Gran % 0.50 [...] Organization Address City/State/[place] [address] (ABNORMAL) Hemogram (12/09/2021 6:18 AM EDT) Analysis Performed At Patho logist Time Signature WBC 17.2 (H) 4.0 - 9.5 [facility] x10(3)/[facility] LABORATORY RBC 4.32 (L) 4.58 - [facility] 5.54 [facility] x10(6)/[facility] LABORATORY Hemoglobin 12.6 (L) 13.7 - [facility] 16.5 g/dL [facility] Hematocrit 38.9 (L) 40.5 - [facility] 48.5 % [facility] MCV 90.0 82.9 - [facility] 93.1 [facility] LABORATORY MCH 29.2 27.5 - [facility] 32.1 pg [facility] MCHC 32.4 32.0 - [facility] 35.7 g/dL [facility] Platelets 193 145 - 357 [facility] x10(3)/[facility] LABORATORY RDWSD 50.4 (H) 36.0 - [facility] 45.0 [facility] LABORATORY RDWCV 15.2 (H) 11.4 - [facility] 13.8 % [facility] MPV 9.5 7.6 - 12.9 [facility] LABORATORY nRBC % Auto 0.0 % [facility] nRBC Abs Auto 0.000 0.000 - [facility] 0.000 [facility] x10(3)/[facility] LABORATORY Specimen Anatomical Collection Method Collection Time Receive d Time (Source) Location / / Volume Laterality Blood 12/09/2021 6:18 AM 6:33 EDT AM EDT Resulting Agency Comment Spec In Lab Moragn BROWN HEMATOLOGY ORDERABLES Performing Organization Address City/State/[place] [address] Lipid Panel (Reflex Direct LDL) (12/09/2021 6:18 AM EDT) athologist Signature Chol, Total 105 mg/dL [facility] Comment: Lower Risk: <200 mg/dL Average Risk: 200-239 mg/dL Higher Risk: >lg=767 mg/dL Triglycerides 133 mg/dL [facility] Comment: Average Risk/Lower Risk: <150 mg/dL Borderline High Risk: 150-199 mg/dL High Risk: 200-499 mg/dL Very High Risk: >sj=611 mg/dL HDL 42 mg/dL [facility] Comment: Males: ?? Higher Risk: <40 mg/dL Females: ?? Higher Risk: <50 mg/dL LDL Cholesterol 36 mg/dL [facility] Comment: Lowest Risk: <100 mg/dL Lower Risk: 100-129 mg/dL Borderline High Risk: 130-159 mg/dL High Risk: 160-189 mg/dL Very High Risk: >lu=510 mg/dL Chol/HDL Ratio 2.5 ratio [facility] Lipid Interpretation See Note [facility] Comment: Lipid management should be guided by a p atient? s ASCVD risk, goals and preferences. ACC/AHA Guidelines recommend high intens ity statin if clinical ASCVD or LDL greater than or equal to 190 mg/dL. http://tinyurl.com/EBT-VUH-Rnengzvll Adults aged 40-75 with LDL 70-189 mg/dL should have their 10 year ASCVD risk estimated with the ACC/AHA ASCVD risk es timator http://tools.acc.org/VHPUW-Ckav-Smyjscja r/ Statin should be discussed if risk [...] Cuevas MD CHEMISTRY ORDERABLES Performing Organization Address City/[facility]/ZIP Code Phon e Number [address] TSH (12/09/2021 6:18 AM EDT) P athologist Signature TSH 1.60 0.27 - 4.20 [employer] mcIU/mL [facility] Comment: Reference Interval (mcIU/mL): Females: ??First Trimester: 0.23-3.88 ??Second Trimester: 0.22-3.90 ??Third Trimester: 0.44-4.66 Specimen Anatomical Collection Method Collection Time Receive d Time (Source) Location / / Volume Laterality Blood 12/09/2021 6:18 AM 2 6:33 EDT AM EDT Resulting Agency Comment Spec In Lab Iker Cuevas MD CHEMISTRY ORDERABLES Performing Organization Address City/[facility]/[place] [address] Hepatic Function Panel (12/09/2021 6:18 AM EDT) P athologist Signature Total Protein 7.3 6.1 - 8.0 [facility] g/dL [facility] Albumin 4.2 3.2 - 5.2 [facility] g/dL [facility] AST 25 0 - 39 [facility] unit/L [facility] ALT 15 0 - 55 [facility] unit/L [facility] Alk Phos 75 40 - 130 [facility] unit/L [facility] Total 1.1 0.2 - 1.3 [facility] Bilirubin mg/dL [facility] Bili, Direct 0.2 0.0 - 0.3 [facility] mg/dL [facility] Specimen Anatomical Collection Method Collection Time Receive d Time (Source) Location / / Volume Laterality Blood 12/09/2021 6:18 AM 6:33 EDT AM EDT Resulting Agency Comment Spec In Lab Iker Cuevas MD CHEMISTRY ORDERABLES Performing Organization Address City/State/[place] [address] (ABNORMAL) BMP w/fasting Glucose (12/09/2021 6:18 AM EDT) athologist Signature Glucose 235 (H) 65 - 99 [facility] Fasting mg/dL [facility] Comment: ?Fasting* Glucose Interpretive C [...] of Diabetes Mellitus, Position Statement from the [employer]. ??Diabete s Care, Volume 33, [...] Cuevas MD CHEMISTRY ORDERABLES Performing Organization Address City/[facility]/ZIP Code Phon e Number [address] Magnesium (12/09/2021 6:18 AM EDT) P athologist Signature Magnesium 0.81 0.69 - 1.07 [facility] mmol/L [facility] Specimen Anatomical Collection Method Collection Time Receive d Time (Source) Location / / Volume Laterality Blood 12/09/2021 6:18 AM 2 6:33 EDT AM EDT Resulting Agency Comment Spec In Lab Iker Cuevas MD CHEMISTRY ORDERABLES Performing Organization Address City/[facility]/ZIP Code Phon e Number [address] (ABNORMAL) Troponin (12/09/2021 6:18 AM EDT) P athologist Signature Troponin-T 1.13 (H) 0.00 - [facility] 0.00 ng/mL [facility] Comment: The 99th percentile for [...] additional sample may be indicated. Reference: Third [place] Definition of Myocardial Infarction. Journal of the [place] [employer] 2012;60:1581-98 Specimen Anatomical Collection Method Collection Time Receive d Time (Source) Location / / Volume Laterality Blood 12/09/2021 6:18 AM 6:33 EDT AM EDT Resulting Agency Comment Spec In Lab Iker Cuevas MD CHEMISTRY ORDERABLES Performing Organization Address City/State/ZIP Code [place] [address] XR Chest One View [...] who have questions please contact the health zoo caretaker that requested your imaging first. ? Electronically signed by: Yoselin White, [facility] ([phone]), at 12/09/2021 5:35 AM Narrative 12/09/2021 5:35 [...] ho have questions please contact the health zoo caretaker that requested your imaging first. Electronically signed by: Yoselin White, [facility] ([phone]), at 12/09/2021 5:35 AM Amber Sanches MD IMG DX ORDERABLES (ABNORMAL) BLOOD GAS 2 ARTERIAL (12/09/2021 5:14 AM EDT) Analysis Performed At Patho logist Time Signature pH Art 7.43 7.35 - [facility] 7.45 [facility] pCO2 Art 36 35 - 45 [facility] mmHg [facility] pO2 Art 67 (L) 85 - 104 [facility] LABORATORY HCO3 Art 23.4 20.0 - [facility] 26.0 [facility] mmol/[facility] BE Art -0.9 -3.0 - 3.0 [facility] mmol/L [facility] Hgb Blood Gas 13.2 (L) 13.7 - [facility] 16.5 g/dL [facility] O2HB Art 91.3 (L) 94.0 - [facility] 97.0 % [facility] COHB Art 0.4 % [facility] [...] WB 2.7 (H) 0.5 - 2.2 mmol/L [facility] FIO2 Art 35 % [facility] Flow Art 8.0 LPM [facility] PF Ratio Art 191 [facility] Specimen Anatomical Collection Method Collection Time Receive d Time (Source) Location / / Volume Laterality Blood 12/09/2021 5:14 AM 2 5:14 EDT AM EDT Iker Cuevas MD CHEMISTRY ORDERABLES Performing Organization Address City/[facility] [place] [address] POCT Glucose (12/09/2021 4:46 AM EDT) P athologist Signature POC Glucose 198 65 - 199 [facility] mg/dL [facility] Comment: Supplemental ranges: <140 mg/dL before meals <180 mg/dL all other times of the day Specimen Anatomical Collection Method Collection Time Receive d Time (Source) Location / / Volume Laterality Blood 12/09/2021 4:46 AM 2 4:46 EDT AM EDT Iker Cuevas MD POINT OF CARE TEST ORDERABLE S Performing Organization Address City/[facility]/[place] [address] (ABNORMAL) POCT Glucose (12/09/2021 3:01 AM EDT) P athologist Signature POC Glucose 225 (H) 65 - 199 [facility] mg/dL [facility] Comment: Supplemental ranges: <140 mg/dL before meals <180 mg/dL all other times of the day Specimen Anatomical Collection Method Collection Time Receive d Time (Source) Location / / Volume Laterality Blood 12/09/2021 3:01 AM 2 3:01 EDT AM EDT Iker Cuevas MD POINT OF CARE TEST ORDERABLE S Performing Organization Address City/State/[place] [address] (ABNORMAL) POCT Glucose (12/08/2021 10:55 PM EDT) athologist Signature POC Glucose 327 (H) 65 - 199 [facility] mg/dL [facility] Comment: Supplemental ranges: <140 mg/dL before meals <180 mg/dL all other times of the day Specimen Anatomical Collection Method Collection Time Receive d Time (Source) Location / / Volume Laterality Blood 12/08/2021 10:55 12/08/2021 PM EDT 10:55 PM EDT Iker Cuevas MD POINT OF CARE TEST ORDERABLE S Performing Organization Address City/[facility]/[place] [address] Heparin (unfractionated) Level (12/08/2021 10:03 PM EDT) athologist Signature Heparin UFH 0.18 IU/mL [facility] Comment: Heparin (anti-Xa) levels should [...] Organization Address City/State/[place] [address] (ABNORMAL) Troponin (12/08/2021 10:03 PM EDT) athologist Signature Troponin-T 0.92 (H) 0.00 - [facility] 0.00 ng/mL [facility] Comment: The 99th percentile for [...] additional sample may be indicated. Reference: Third [place] Definition of Myocardial Infarction. Journal of the [place] [employer] 2012;60:1581-98 Specimen Anatomical Collection Method Collection Time Receive d Time (Source) Location / / Volume Laterality Blood 12/08/2021 10:03 12/08/2021 PM EDT 10:31 PM EDT Resulting Agency Comment Spec In Lab Iker Cuevas MD CHEMISTRY ORDERABLES Performing Organization Address City/State/ZIP Code Phon e Number [facility] [place] [address] (ABNORMAL) POCT Glucose (12/08/2021 8:22 PM EDT) athologist Signature POC Glucose 429 (H) 65 - 199 [facility] mg/dL [facility] Comment: Supplemental ranges: <140 mg/dL before meals <180 mg/dL all other times of the day Specimen Anatomical Collection Method Collection Time Receive d Time (Source) Location / / Volume Laterality Blood 12/08/2021 8:22 PM 2 8:22 EDT PM EDT Iker Cuevas MD POINT OF CARE TEST ORDERABLE S Performing Organization Address City/[facility]/ZIP Code Phon e Number [address] (ABNORMAL) POCT Glucose (12/08/2021 7:06 PM EDT) athologist Signature POC Glucose 442 (H) 65 - 199 [facility] mg/dL [facility] Comment: Supplemental ranges: <140 mg/dL before meals <180 mg/dL all other times of the day Specimen Anatomical Collection Method Collection Time Receive d Time (Source) Location / / Volume Laterality Blood 12/08/2021 7:06 PM 2 7:06 EDT PM EDT Iker Cuevas MD POINT OF CARE TEST ORDERABLE S Performing Organization Address City/[facility]/[place] [address] Magnesium (12/08/2021 6:02 PM EDT) athologist Signature Magnesium 0.86 0.69 - 1.07 [facility] mmol/L [facility] Specimen Anatomical Collection Method Collection Time Receive d Time (Source) Location / / Volume Laterality Blood 12/08/2021 6:02 PM 2 6:36 EDT PM EDT Resulting Agency Comment Spec In Lab Iker Cuevas MD CHEMISTRY ORDERABLES Performing Organization Address City/[facility]/[place] [address] (ABNORMAL) Basic Metabolic Panel (non-fasting) (12/08/2021 6:02 PM EDT) athologist Signature Glucose Lvl 392 (H) 65 - 199 [facility] mg/dL [facility] Comment: Diabetes: >=200 mg/dL [...] Organization Address City/State/[place] [address] (ABNORMAL) Differential, Automated (12/08/2021 6:02 PM EDT) [facility] gist Method Time Signature Neutrophils % 89.5 % [facility] Neutr Abs (ANC) 13.97 (H) 1.70 - [facility] 6.10 [facility] x10(3)/[facility] L LABORATORY Lymphocytes % 3.7 % [facility] Lymphocytes Abs 0.6 (L) 0.9 - 3.2 [facility] x10(3)/[facility] LABORATORY Monocytes % 6.1 % [facility] Monocyte Abs 1.0 (H) 0.3 - 0.9 [facility] x10(3)/[facility] LABORATORY Eosinophils % 0.0 % [facility] Eosinophils Abs 0.0 0.0 - 0.4 [facility] x10(3)/[facility] LABORATORY Basophils % 0.2 % [facility] Basophils Abs 0.0 0.0 - 0.1 [facility] x10(3)/[facility] LABORATORY Immature Gran % 0.50 [...] Organization Address City/State/[place] [address] (ABNORMAL) Hemogram (12/08/2021 6:02 PM EDT) Analysis Performed At Patho logist Time Signature WBC 15.6 (H) 4.0 - 9.5 [facility] x10(3)/[facility] LABORATORY RBC 4.05 (L) 4.58 - [facility] 5.54 [facility] x10(6)/[facility] LABORATORY Hemoglobin 11.8 (L) 13.7 - [facility] 16.5 g/dL [facility] Hematocrit 35.8 (L) 40.5 - [facility] 48.5 % [facility] MCV 88.4 82.9 - [facility] 93.1 [facility] LABORATORY MCH 29.1 27.5 - [facility] 32.1 pg [facility] MCHC 33.0 32.0 - [facility] 35.7 g/dL [facility] Platelets 178 145 - 357 [facility] x10(3)/[facility] LABORATORY RDWSD 49.3 (H) 36.0 - [facility] 45.0 [facility] LABORATORY RDWCV 15.1 (H) 11.4 - [facility] 13.8 % [facility] MPV 10.4 7.6 - 12.9 [facility] fL [facility] nRBC % Auto 0.0 % [facility] nRBC Abs Auto 0.000 0.000 - [facility] 0.000 [facility] x10(3)/[facility] LABORATORY Specimen Anatomical Collection Method Collection Time Receive d Time (Source) Location / / Volume Laterality Blood 12/08/2021 6:02 PM 6:36 EDT PM EDT Resulting Agency Comment Spec In Lab Morgan BROWN HEMATOLOGY ORDERABLES Performing Organization Address City/State/[place] [address] (ABNORMAL) Troponin (12/08/2021 6:02 PM EDT) P athologist Signature Troponin-T 0.89 (H) 0.00 - [facility] 0.00 ng/mL [facility] Comment: The 99th percentile for [...] additional sample may be indicated. Reference: Third [place] Definition of Myocardial Infarction. Journal of the [place] [employer] 2012;60:1581-98 Specimen Anatomical Collection Method Collection Time Receive d Time (Source) Location / / Volume Laterality Blood 12/08/2021 6:02 PM 6:36 EDT PM EDT Resulting Agency Comment Spec In Lab Iker Cuevas MD CHEMISTRY ORDERABLES Performing Organization Address City/State/ZIP Code Phon e Number [place] [id number] LAB[address] COVID-19 PCR (12/08/2021 5:00 PM EDT) [facility] Method Time Signature SARS-CoV-2 Not Detected Not Detected [facility] RNA PCR [facility] Comment: This result should be [...] using the Simplexa COVID-19 Direct Assay by [employer] as authorized by the FDA issued Emergency [...] Pathology and Laboratory Medicine at [facility], certified under the Clinical Laboratory Improvement [...] fact sheets at the following FDA website: https://www.fda.gov/medical-devices/qvwzwgdfmte-iuhrxqx-0200-dskao-78-xolbvddbz- squ-kdknhskyfmcukr-kygkmpg-devices/ncyim-jfajqwkfaug-cbru SARS-CoV-2 Source DISTRICT CLAIMS MANAGER Swab [facility] Specimen (Source) Anatomical Collection Method Collection Time Re ceived Time Location / / Volume Laterality Nasopharyngeal Swab 12/08/2021 5:00 12/08 PM EDT 6:03 PM EDT Comment: Symptoms->Surveillance Resulting Agency Comment Spec In Lab Iker Cuevas MD MICROBIOLOGY - GENERAL ORDER [place] Performing Organization Address City/State/[place] [address] EKG 12 Lead (12/08/2021 4:40 PM EDT) Component Value Ref Range Test Analysis Performed Pathologis t Method Time At Signature Ventricular rate 78 BPM MUSE SYSTEM Atrial Rate 78 BPM MUSE SYSTEM P-R Interval 152 ms MUSE SYSTEM QRS Duration 96 ms MUSE SYSTEM Q-T Interval 396 ms MUSE SYSTEM QTC Calculated 451 ms MUSE SYSTEM (Bezet) Calculated P [place] 44 degrees MUSE SYSTEM Calculated R [place] -31 degrees MUSE SYSTEM Calculated T [place] 124 degrees MUSE SYSTEM INTERPRETATION Normal sinus [...] 400 (H) 65 - 199 [facility] mg/dL [facility] Comment: Supplemental ranges: <140 mg/dL before meals <180 mg/dL all other times of the day Specimen Anatomical Collection Method Collection Time Receive d Time (Source) Location / / Volume Laterality Blood 12/08/2021 4:34 PM 2 4:34 EDT PM EDT Iker Cuevas MD POINT OF CARE TEST ORDERABLE S Performing Organization Address City/State/[place] [address] documented in this encounter [...] Given 11/23 10:30 AM EDT 300 mcg (BUSINESS CENTER ATTENDANT) ONCE PRN, Starting on Wed12/10/21 at 1030, [...] Anthony Fatima RN)1243 (Stopped - Provider: Emma Garcia, VAMSI) [...] Provider: Admin Adt)1746 (Given - Provider: Emma Gracia RN) 0900 (Given - Provider: Emma Garcia [...] - Reason: Transfer to a Procedural area)1230 ([facility] Unhold - Provider: Admin Adt) 650 [...] - Reason: Transfer to a Procedural area)1230 ([facility] Unhold - Provider: Admin Adt) 10 [...] (Intra-Procedure), Routine niCARdipine (Cardene) (100 mcg/mL) dilution (BUSINESS CENTER ATTENDANT) (CANCELED) 1030 (Given - Provider: Vitaliy Nobles [...] episode. & nbsp; For persistent hypoglycemia, con information technology account manager longer-acting treatment for the duration of the [...]
Routine documented in this encounter Care Teams Brick Paving Checker Relationship Specialty Start Date End Date Lovely Vicente MD PCP - General 04/16/[address] [place] [address] documented as of this encounter
--- OUTSIDE RECORDS SUMMARY | 2022-04-10 08:56 | XMS_ITS | Encounter Summary ---
:1945 [place] [address] Care Team Providers Name Role Phone Lovely Vicente MD Primary Care Provider Reason for Visit Reason Comments Skin Cancer Examination Encounter Details Date Type Department Care Team Description 03/20/2021 Office Visit Dermatology at [facility] Brennen Rene MD History of melanoma; [facility] History of dysplastic nevus; [address] Multiple benign nevi; [place] [address] 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 Reviewed and signed by: LAURA RENE MD Dermatology [facility] documented in this encounter Plan of Treatment Upcoming Encounters Date Type Specialty Care Team Description 05/28/2022 Appointment Cardiology TrudiZulma Knowles MD [facility] [place], [place] [address] (Wo rk) 05/28/2022 Laboratory Appointment Lab 05/28/2022 Office Visit Cardiology Zulma Dolan MD [facility] [place] [address] Liz Poole PA [facility] [place] [address] 06/10/2022 Office Visit Dermatology Laura Rene MD [facility] DR TEJA GR-DERMAT [place], [place] [address] (Wo rk) documented as [...] keratosis documented in this encounter Care Teams Carriage Operator Relationship Specialty Start Date End Date Lovely Vicente MD PCP - General 04/16/[address] [place] [address] documented as of this encounter
--- OUTSIDE RECORDS SUMMARY | 2022-04-10 08:56 | XMS_ITS | Encounter Summary ---
:1945 Author Organization [facility] Address [facility] [place] [address] Care Team Providers Name Role Phone Lovely Vicente MD Primary Care Provider Encounter Details Date Type Department Care Team Description 01/02/2020 Office Visit Dermatology at [facility] keratoses; Abdelrahman HOOPER MD History of melanoma; [address] [facility] History of dysplastic nevus; [place] [address] Multiple benign nevi; [phone] [facility] Seborrheic yossi [place]; RD-DERMATOLGY Skin exam for malignant neoplasm [place], [place] [address] Social History Tobacco Use Types [...] service: 01/02/2020 Don Fatima : 1945 Provider: iRgoberto Garcia MD PROBLEM: FSE - history of [...] Dolan MD [facility] Dr [place], [place] [address] (Wo lissa) 05/28/2022 Laboratory Appointment Lab 05/28/2022 Office Visit Cardiology Zulma Dolan MD [facility] [place] [address] Liz Poole PA [facility] [place] [address] 06/10/2022 Office Visit Dermatology Laura Scherer MD [facility] [address] TEJA GR-DERMAT [place], [place] 0[address] (Wo lissa) documented as of [...] skin documented in this encounter Care Teams Cis Coordinator Relationship Specialty Start Date End Date Lovely Vicente MD PCP - General 04/16/15 [facility] [address] [place] [address] documented as of this encounter
--- OUTSIDE RECORDS SUMMARY | 2022-04-10 08:56 | XMS_ITS | Encounter Summary ---
:1945 [place] [address] Care Team Providers Name Role Phone Lovely Vicente MD Primary Care Provider Encounter Details Date Type Department Care Team Description 12/07/2021 Ancillary Procedure Rad[facility] Lovely murillo MD [facility] [address] [address] [place], [place] [phone] (Wo lissa) [address] [phone] Social History Tobacco Use Types Packs/Day Years [...] MD [facility] [address] [place] [address] (Wo rk) 05/28/2022 Laboratory Appointment Lab 05/28/2022 Office Visit Cardiology Zulma Dolan MD [facility] [place] [address] Liz Poole PA [facility] [place] [address] 06/10/2022 Office Visit Dermatology Laura Scherer MD [facility] DR [address]-DERMAT [place], [place] [address] [...] Organization Address City/State/ZIP Code Phon e Number [place], [place] documented in this encounter Visit Diagnoses Not on filedocumented in this encounter Care Teams Painter Structural Steel Relationship Specialty Start Date End Date Lovely Vicente MD PCP - General 04/16/[address] [place] [address] documented as of this encounter
--- OUTSIDE RECORDS SUMMARY | 2022-04-10 08:56 | XMS_ITS | Encounter Summary ---
:1945 Author Organization [facility] [place] [address] Care Team Providers Name Role Phone Lovely Vicente MD Primary Care Provider Reason for Visit Reason Comments Establish Care Atrial Fibrillation Congestive Heart Failure Cardiomyopathy Encounter Details Date Type Department Care Team Description 09/06/2019 [facility], Ischemic cardiomyopathy Osvaldo STRANGE [address] [place], [place] CARDIOLOGY [place]PT. [address] [place] [address] [phone] Social History Tobacco Use Types Packs/Day Years [...] today For any questions, call my office: [phone] To access your health care information, go to the web at: [email or web address] (you will need to register) For educational materials: [email or web address] Karel TRAMMELL.[facility], Clinical Cardiac Electrophysiology, [facility], [facility] A Healthy Heart: After Your Visit [...] 2 servings of fish a week. [place], mackerel, mcfadden, sardines, and chunk light tuna [...] irregular heartbeat. After you call 911, the drop wire operator may tell you to chew 1 [...] more? Visit our health information library at [email or web address]. You can also view health information on MobileSnack, your personal patient account. Log in or sign up today. Enter F075 in the search box to learn more about A Healthy Heart: After Your Visit. ?? [phone] [employer] documented in this encounter Progress Notes Karel Mcelroy MD - 09/06/2019 2:20 PM EST Images from the original note were not included. Section of Cardiology/Cardiac Electrophysiology [facility] Clinical Cardiac Electrophysiology Consult Patient ID Don Fatima 1945 [id number] Don Fatima is referred to the EP clinic by Danette Maxwell APRN PhD Chief Complaint Dyspnea on exertion Ischemic cardiomyopathy History This is a 74 y.o. male following up/being seen in clinic for evaluation for ongoing anticoagulation. He has a Vkfbi0Erhv score of ~ 6-7. 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, [...] on phone: None Gets together: None Attends mormonism service: None Active member of club or [...] EP clinic KAREL MCELROY MD Cardiac Electrophysiology [facility] T: [phone] F: [phone] 35 minutes of this 40 minute encounter were spent in counselling, as described above Cc: MD Danette Cr APRN PhD Janett Espino DPM documented in this encounter Plan of Treatment Upcoming Encounters Date Type Specialty Care Team Description 05/28/2022 Appointment Cardiology Zulma Dolan MD [facility] [place], [place] [address] (Wo rk) 05/28/2022 Laboratory Appointment Lab 05/28/2022 Office Visit Cardiology Zulma Dolan MD [facility] [place] [address] Liz Poole PA [facility] [place] [address] 06/10/2022 Office Visit Dermatology Laura Scherer MD [facility] DR [address]-DERMAT [place], [place] [address] (Wo rk) documented as of [...] 446 ms MUSE SYSTEM (Bezet) Calculated P [place] 37 degrees MUSE SYSTEM Calculated R [place] -23 degrees MUSE SYSTEM Calculated T [place] 116 degrees MUSE SYSTEM INTERPRETATION Normal sinus rhythm MUSE SYSTEM Inferior infarct (cited on or before 25-JAN-2013) ST & T wave abnormality, consider anterolateral ischemia Abnormal ECG When compared with ECG of 19-AUG-2017 10:23, No significant change was found Confirmed by MD Cande, Michael ([id number]) on 09/08/2019 10:22:4 7 AM Specimen Anatomical [...] disease documented in this encounter Care Teams Rigging Man Relationship Specialty Start Date End Date Lovely Vicente MD PCP - General 04/16/[address] [place] [address] documented as of this encounter
--- OUTSIDE RECORDS SUMMARY | 2022-04-10 08:56 | XMS_ITS | Encounter Summary ---
:1945 Author Organization [facility] [place] [address] Care Team Providers Name Role Phone Lovely Vicente MD Primary Care Provider Encounter Details Date Type Department Care Team Description 03/20/2021 Ancillary Procedure Radiology Library [place] [address] [place] [address] [phone] Social History Tobacco Use Types Packs/Day Years [...] MD [facility] er [address] [place], [place] [address] (Wo rk) 05/28/2022 Laboratory Appointment Lab 05/28/2022 Office Visit Cardiology Zulma Dolan MD [facility] [place] [address] Liz Poole PA [facility] [place] [address] 06/10/2022 Office Visit Dermatology Laura Scherer MD [facility] ER DR [address]-DERMAT [place], [place] [address] (Wo rk) documented as of [...] Organization Address City/State/ZIP Code Phon e Number [place], [place] documented in this encounter Visit Diagnoses Not on filedocumented in this encounter Care Teams Hiv Prevention Specialist Relationship Specialty Start Date End Date Lovely Vicente MD PCP - General 04/16/[address] [place] [address] documented as of this encounter
--- OUTSIDE RECORDS SUMMARY | 2022-04-10 08:56 | XMS_ITS | Encounter Summary ---
:1945 Author Organization [facility] [place] [address] Care Team Providers Name Role Phone Lovely Vicente MD Primary Care Provider Encounter Details Date Type Department Care Team Description 03/20/2021 Ancillary Procedure Radiology Library [place] [address] [place] [address] [phone] Social History Tobacco Use Types Packs/Day Years [...] Dolan MD [facility] er [place], [place] [address] (Wo rk) 05/28/2022 Laboratory Appointment Lab 05/28/2022 Office Visit Cardiology Zulma Dolan MD [facility] [place] [address] Liz Poole PA [facility] [place] [address] 06/10/2022 Office Visit Dermatology Laura Scherer MD [facility] ER DR [address]-DERMAT [place], [place] [address] (Wo rk) documented as [...] Organization Address City/State/ZIP Code Phon e Number [place], [place] documented in this encounter Visit Diagnoses Not on filedocumented in this encounter Care Teams Clinical Trials Nurse Relationship Specialty Start Date End Date Lovely Vicente MD PCP - General 04/16/[address] [place] [address] documented as of this encounter
--- OUTSIDE RECORDS SUMMARY | 2022-04-10 08:56 | XMS_ITS | Encounter Summary ---
:1945 Author Organization [facility] [place] [address] Care Team Providers Name Role Phone Lovely Vicente MD Primary Care Provider Encounter Details Date Type Department Care Team Description 11/07/2019 TH Visit Cardiology at [facility] Danette Maxwell (arteriosclerotic heart disease); (TeleHealth) [facility] STACIE Gomes Cardiomyopathy, ischemic; Drive [facility] S/P CABG x 3; [place], [place] VI[place] (obstructive sleep apnea) on CPAP [phone] CARDIOLOGY [phone] [place], [place] [address] Social History Tobacco Use Types [...] regurgitation present. 07/07/2019 - 07/21/2019 Zio Patch Top Lift Scourer The patient had a minimum heart rate [...] at last check 6. Post-op atrial fibrillation [id number] (CHF, HTN, DM, vascular disease, thromboembolism) Amiodarone discontinued Continue coumadin INR managed by PCP 7. PAD 08/06/2017: Right 1st, 2nd, 3rd toe amputation 08/11/2017: Left??femoral arterial access, RLE??angiogram, Balloon angioplasty of R PT with Eleazar 2.5 x 80 10/25/2017: right popliteal-pedal bypass at [facility] Continue Coumadin 8. Hypothyrodism S/p thyroidectomy for [...] Zulma Dolan MD [facility] [place], [place] [address] (Wo rk) 05/28/2022 Laboratory Appointment Lab 05/28/2022 Office Visit Cardiology Zulma Dolan MD [facility] [place] [address] Liz Poole PA [facility] [place] [address] 06/10/2022 Office Visit Dermatology Laura Scherer MD [facility] DR [address]-DERMAT [place], [place] [address] (Wo rk) documented as of this encounter Visit Diagnoses Diagnosis ASHD (arteriosclerotic heart disease) Coronary atherosclerosis of unspecified type of vessel, grayling or graft Cardiomyopathy, ischemic Other specified forms of chronic ischemi c heart disease S/P CABG x 3 Postsurgical aortocoronary bypass status MARIA VICTORIA (obstructive sleep apnea) on CPAP Obstructive sleep apnea (adult) (pediatr ic) documented in this encounter Care Teams Dewaxer Relationship Specialty Start Date End Date Lovely Vicente MD PCP - General 04/16/[address] [place], [place] [address] documented as of this encounter
--- OUTSIDE RECORDS SUMMARY | 2022-04-10 08:56 | XMS_ITS | Encounter Summary ---
:1945 [place] [address] Care Team Providers Name Role Phone Lovely Vicente MD Primary Care Provider Encounter Details Date Type Department Care Team Description 03/20/2021 Telephone Neurology at [facility] Hugo Gaston MD [facility] [place] [address] [place] [address] [phone] (Wo rk) Social History Tobacco Use Types [...] - 03/20/2021 6:03 PM EDT Call from [facility]. 76 M with h/o DM. CABG, [...] Gaston MD Department of Neurology Pager # [phone] documented in this encounter Plan of Treatment Upcoming Encounters Date Type Specialty Care Team Description 05/28/2022 Appointment Cardiology Zulma Dolan MD [facility] [place], [place] [address] (Wo rk) 05/28/2022 Laboratory Appointment Lab 05/28/2022 Office Visit Cardiology Zulma Dolan [place] [address] Liz Poole PA [facility] [place] [address] 06/10/2022 Office Visit Dermatology Laura Scherer MD [facility] DR [address]-DERMAT [place], [place] [address] (Wo rk) documented as of this encounter Visit Diagnoses Not on filedocumented in this encounter Care Teams Butting Saw Operator Relationship Specialty Start Date End Date Lovely Vicente MD PCP - General 04/16/[address] [place] [address] documented as of this encounter
--- OUTSIDE RECORDS SUMMARY | 2022-04-10 08:56 | XMS_ITS | Encounter Summary ---
:1945 Author Organization [facility] [place] [address] Care Team Providers Name Role Phone Lovely Vicente MD Primary Care Provider Encounter Details Date Type Department Care Team Description 03/20/2021 Ancillary Procedure Radiology Library at [place] [address] [place] [address] [phone] Social History Tobacco Use Types Packs/Day Years [...] MD [facility] er [address] [place], [place] [address] (Wo rk) 05/28/2022 Laboratory Appointment Lab 05/28/2022 Office Visit Cardiology Zulma Dolan MD [facility] [place] [address] Liz Poole PA [facility] [place] [address] 06/10/2022 Office Visit Dermatology Laura Scherer MD [facility] DR [address]-DERMAT [place], [place] [address] (Wo rk) documented as of [...] Organization Address City/State/ZIP Code Phon e Number [place], [place] documented in this encounter Visit Diagnoses Not on filedocumented in this encounter Care Teams Pie Topper Relationship Specialty Start Date End Date Lovely Vicente MD PCP - General 04/16/[address] [place] [address] documented as of this encounter
--- OUTSIDE RECORDS SUMMARY | 2022-04-10 08:56 | XMS_ITS | Encounter Summary ---
:1945 Author Organization [facility] [place] [address] Care Team Providers Name Role Phone Lovely Vicente MD Primary Care Provider Encounter Details Date Type Department Care Team Description 12/08/2021 External Results Non-Invasive Cardiology Lab Mar y None [facility] [place] [address] Social History Tobacco Use Types Packs/Day [...] MD [facility] [place], [place] [address] (Wo rk) 05/28/2022 Laboratory Appointment Lab 05/28/2022 Office Visit Cardiology Zulma Dolan MD [facility] [place] [address] Liz Poole PA [facility] [place] [address] 06/10/2022 Office Visit Dermatology Laura Scherer MD [facility] [address] GR-DERMAT [place], [place] [address] [...] on filedocumented in this encounter Care Teams Tapper Bit Relationship Specialty Start Date End Date Lovely Vicente MD PCP - General 04/16/[address] [place] [address] documented as of this encounter
--- OUTSIDE RECORDS SUMMARY | 2022-04-10 08:56 | XMS_ITS | Encounter Summary ---
:1945 Author Organization [facility] [place] [address] Care Team Providers Name Role Phone Lovely Vicente MD Primary Care Provider Encounter Details Date Type Department Care Team Description 04/16/2021 Laboratory Appointment Lab 3L [facility] [place] [address] Social History Tobacco Use Types Packs/Day Years [...] Dolan MD [facility] er [place], [place] [address] (Wo rk) 05/28/2022 Laboratory Appointment Lab 05/28/2022 Office Visit Cardiology Zulma Dolan MD [facility] [place] [address] Liz Poole PA [facility] [place] [address] 06/10/2022 Office Visit Dermatology Laura Scherer MD [facility] ER DR [address]JA GR[address]DERMAT [place], [place] [address] (Wo rk) documented as of this encounter [...] Organization Address City/State/[place] [address] (ABNORMAL) Basic Metabolic Panel (non-fasting) (04/16/2021 9:58 AM EDT) athologist Signature Glucose Lvl 77 65 - 199 [facility] mg/dL [facility] Comment: Diabetes: >=200 mg/dL plus symp toms BUN 23 (H) 10 - 20 mg/dL [facility] Creatinine 1.26 0.80 - [...] Anion Gap 9 5 - 15 mmol/L [facility] [...] Organization Address City/State/[place] [address] documented in this encounter Visit Diagnoses Diagnosis Chronic systolic heart failure documented in this encounter Care Teams Car Shakeout Operator Relationship Specialty Start Date End Date Lovely Vicente MD PCP - General 04/16/[address] [place] [address] documented as of this encounter
--- OUTSIDE RECORDS SUMMARY | 2022-04-10 08:56 | XMS_ITS | Encounter Summary ---
:1945 Author Organization [facility] [place] [address] Care Team Providers Name Role Phone Lovely Vicente MD Primary Care Provider Encounter Details Date Type Department Care Team Description 12/07/2021 Telephone Cardiology Eddi Briceño Jr., [facility] [place] [address] [facility] [phone] CARDIOLOGY DEPT [place], [place] [address] (Wo rk) Social History Tobacco [...] the OSH ED provider/staff member. Referring Location: [facility] Referring Provider: Marisela Dean, EVAPORATOR REPAIRER [address] [place] [address] Don Veda Kushal 76 y.o. w / [...] bpm, LAFB, poor R wave progression, septal HI, and lateral STD, overall no significantchange from [...] Zulma Dolan MD [facility] [place] [address] (Wo rk) 05/28/2022 Laboratory Appointment Lab 05/28/2022 Office Visit Cardiology Zulma Dolan MD [facility] [place] [address] Liz Poole PA [facility] [place] [address] 06/10/2022 Office Visit Dermatology Laura Scherer MD [facility] DR TE[address] GR[address]DERMAT [place], [place] [address] (Wo rk) documented as of this encounter Visit Diagnoses Not on filedocumented in this encounter Care Teams Java Websphere Developer Relationship Specialty Start Date End Date Lovely Vicente MD PCP - General 04/16/15 [facility] [address] [place] [address] documented as of this encounter
--- OUTSIDE RECORDS SUMMARY | 2022-04-10 08:56 | XMS_ITS | Encounter Summary ---
:1945 Author Organization [facility] [place] [address] Care Team Providers Name Role Phone Lovely Vicente MD Primary Care Provider Encounter Details Date Type Department Care Team Description 12/07/2021 External Results [facility] [place] [address] Social History Tobacco Use Types Packs/Day [...] Dolan MD [facility] er [address] [place] [address] (Wo rk) 05/28/2022 Laboratory Appointment Lab 05/28/2022 Office Visit Cardiology Zulma Dolan MD [facility] [place] [address] Liz Poole PA [facility] [place] [address] 06/10/2022 Office Visit Dermatology Laura Scherer MD [facility] ER DR [address]-DERMAT [place], [place] [address] (Wo rk) documented as of [...] on filedocumented in this encounter Care Teams Camera Tuning Engineer Relationship Specialty Start Date End Date Lovely Vicente MD PCP - General 04/16/[address] [place] [address] documented as of this encounter
--- OUTSIDE RECORDS SUMMARY | 2022-04-10 08:56 | XMS_ITS | Encounter Summary ---
:1945 Author Organization [facility] [place] [address] Care Team Providers Name Role Phone Lovely Vicente MD Primary Care Provider Reason for Referral Diagnostic Test (Routine) - Closed Specialty Diagnoses / Procedures Referred By Contact Refer red To Contact Cardiology Diagnoses Chronic systolic heart failure Danette Maxwell APRN [facility] Non-Inv Card Lab Procedures Echocardiogram Transthoracic(Leb) [facility] [place] [address] [place] [address] Referral ID Status Reason Start Date Expiration Date Visits V isits Requested Authorized [id number] Closed Specialty 07/17/2019 09/14/2019 1 1 Service Requested Reason for Visit Diagnostic Test (Routine) - Closed Specialty Diagnoses / Procedures Referred By Contact Refer red To Contact Cardiology Diagnoses Chronic systolic heart failure Danette Maxwell APRN [facility] Non-Inv Card Lab Procedures Echocardiogram Transthoracic(Leb) [facility] [address] [place] [address] Referral ID Status Reason Start Date Expiration Date Visits V isits Requested Authorized [id number] Closed Specialty 07/17/2019 09/14/2019 1 1 Service Requested Encounter Details Date Type Department Care Team Description 07/28/2019 Hospital Encounter Non-Invasive Chronic s ystolic heart [place] [address] Social History Tobacco Use Types Packs/Day [...] Dolan MD [facility] [address] [place], [place] [address] (Wo rk) 05/28/2022 Laboratory Appointment Lab 05/28/2022 Office Visit Cardiology Zulma Dolan MD [place] [address] Liz Poole PA [facility] [place] [address] 06/10/2022 Office Visit Dermatology Laura Scherer MD [facility] [address]DERMAT [place], [place] [address] (Wo rk) documented as of [...] Mccollum ? (Age): 1945(74y) Med Rec#: ? [id number] ?Sex: ?M ? Site Loc: ? [facility] ?Ht / Wt: ??172(cm)/81(kg) Pt. Loc: ?Echo Lab ?BSA: ?1.94 Study Date: ?? 07/28/2019 ?Pt. Type: Outpatient Tape: ? Referring: MARY ELLEN Reading: Ifeanyi Truong ([id number]) Business Intelligence Architect: Fadumo Flanagan RDCS, FASE Diagnosis: *Chronic systolic [...] E-wave Vmax ?1 ?m/sec ? MV deceleration nkod775.5 ? msec ? MV A-wave Vmax ?1 [...] ? Pulmonic Valve/Qp:Qs ?Value ?Units (Range) ? WA end-diastolic Vma1.1 ?m/sec ? Wall Motion: Segment Name ?Rest ? Base-Anteroseptal ?? Normal ? Base-Anterior ? Normal ? Base-Anterolateral ??Normal ? Base-Posterolateral Normal ? Base-Inferior ? Akinetic ? Base-Inferoseptal ?? Normal ? Mid-Anteroseptal ?Normal ? Mid-Anterior ?Hypokinetic ? Mid-Anterolateral ?? Normal ? Mid-Posterolateral ??Normal ? Mid-Inferior ?Hypokinetic ? Mid-Inferoseptal ?Normal ? [place]-Septal ? Normal ? [place]-Anterior ? Hypokinetic ? [place]-Lateral ?Normal ? [place]-Inferior ? Akinetic ? [place]-Tip ?Hypokinetic ? This report has been electronically sign ed by: _ Ifeanyi Truong M.D. ? 07/28/2019 0 8:38:01 Images reviewed and interpretation verif ied [facility] Procedure Note Ifeanyi Truong MD - 07/28/2019Formatt ing of this note might be different from the original. Procedure: Transthoracic Echocardiogram Patient: NATALYA MCBRIDE(Age): [birth year]74y) Med Rec#: [id number] Sex: M Site Loc: [facility] Ht / Wt: 172(cm)/81(kg) Pt. Loc: Echo Lab BSA: 1.94 Study Date: 07/28/2019 Pt. Type: Outpati ent Tape: Referring: MARY ELLEN Reading: Ifeanyi Truong ([id number]) Business Intelligence Architect: Fadumo Flanagan [facility] Diagnosis: *Chronic systolic (congestive) heart fa ilure [...] MV E-wave Vmax 1 m/sec MV deceleration iicv868.5 msec MV A-wave Vmax 1 m/sec MV [...] 0.7 ratio Pulmonic Valve/Qp:Qs Value Units (Range) WA end-diastolic Vma1.1 m/sec Wall Motion: Segment Name Rest Base-Anteroseptal Normal Base-Anterior Normal Base-Anterolateral Normal Base-Posterolateral Normal Base-Inferior Akinetic Base-Inferoseptal Normal Mid-Anteroseptal Normal Mid-Anterior Hypokinetic Mid-Anterolateral Normal Mid-Posterolateral Normal Mid-Inferior Hypokinetic Mid-Inferoseptal Normal [place]-Septal Normal [place]-Anterior Hypokinetic [place]-Lateral Normal [place]-Inferior Akinetic [place]-Tip Hypokinetic This report has been electronically sign ed by: _ Ifeanyi Truong M.D. 07/28/2019 08:38:0 1 Images reviewed and interpretation elvie hwang [facility] Danette A Hans QUINONES [...] Routine documented in this encounter Care Teams Tunneller Relationship Specialty Start Date End Date Lovely Vicente MD PCP - General 04/16/[address] [place] [address] documented as of this encounter
--- OUTSIDE RECORDS SUMMARY | 2022-04-10 08:57 | XMS_ITS | Encounter Summary ---
:1945 Author Organization [facility] [place] [address] Care Team Providers Name Role Phone Lovely Vicente MD Primary Care Provider Encounter Details Date Type Department Care Team Description 09/16/2017 Hospital [place] [address] Social History Tobacco Use Types Packs/Day [...] Cardiology Zulma Dolan MD [facility] [place], [place] [address] (Wo rk) 05/28/2022 Laboratory Appointment Lab 05/28/2022 Office Visit Cardiology Zulma Dolan MD [facility] [place] [address] Liz Poole PA [facility] [place] [address] 06/10/2022 Office Visit Dermatology Laura Scherer MD [facility] [address] [place], [place] [address] (Wo rk) documented as of this encounter Procedures Procedure Name Priority Date/Time Associated Diagnosis Comme [facility] SURGICAL PATHOLOGY Routine 09/16/2017 7:28 AM Res ults for this REPORT EST procedure are i n the results section. documented in this encounter Results Surgical Pathology Report (09/16/2017 7:28 AM EST) Component Value Ref Test Analysis Performed At [facility] Method Time Signature Surgical [id number] ? Location: [facility] Pathology SHERIDAN Report The signing pathologist has (i) examined [...] Henrique Flower Verified: ??09/24/2017 ?Pathologist Performed at: ??-[facility] Dept. of Pathology, [place], [place] CLINICAL INFORMATION Specimen Submitted: A - [...] Address City/State/[place] [address] documented in this encounter Visit Diagnoses Not on filedocumented in this encounter Care Teams Switchboard Operator Relationship Specialty Start Date End Date Lovely Vicente MD PCP - General 04/16/[address] [place] [address] documented as of this encounter
--- OUTSIDE RECORDS SUMMARY | 2022-04-10 08:57 | XMS_ITS | Encounter Summary ---
:1945 Author Organization [facility] [place] [address] Care Team Providers Name Role Phone Lovely Vicente MD Primary Care Provider Reason for Visit Reason Comments Skin Check Encounter Details Date Type Department Care Team Description 07/06/2018 Office Visit Dermatology at [facility], Rigoberto Yarbrough (actinic keratosis); MD SHAY Quick III (seborrheic keratosis); [address] [facility] History of melanoma; [place] [address] Skin exam for malignant neoplasm [phone] [facility] [place], [place] [address] Social History Tobacco Use Types [...] Dolan MD [facility] [address] [place], [place] [address] (Wo rk) 05/28/2022 Laboratory Appointment Lab 05/28/2022 Office Visit Cardiology Zulma Dolan MD [facility] [place] [address] Liz Poole PA [facility] [place] [address] 06/10/2022 Office Visit Dermatology Laura Scherer MD [facility] [address] [place], [place] [address] (Wo rk) documented as of this encounter Visit Diagnoses Diagnosis AK (actinic keratosis) Actinic keratosis SK (seborrheic keratosis) Other seborrheic keratosis History of melanoma Personal history of malignant melanoma o f skin Skin exam for malignant neoplasm Screening for malignant neoplasm of the skin documented in this encounter Care Teams Vault Keeper Relationship Specialty Start Date End Date Lovely Vicente MD PCP - General 04/16/[address] [place] [address] documented as of this encounter
--- OUTSIDE RECORDS SUMMARY | 2022-04-10 08:57 | XMS_ITS | Encounter Summary ---
:1945 Author Organization [facility] [place] [address] Care Team Providers Name Role Phone Lovely Vicente MD Primary Care Provider Reason for Visit Reason Onset Date Comments Other 03/24/2019 cardiac clearance ne eded Encounter Details Date Type Department Care Team Description 03/24/2019 Telephone Cardiology at [facility] Danette Maxwell, Other (cardiac [facility] ESTATE TAX EXAMINER clearance needed) [place] [address] CARDIOLOGY [place], [place] [address] (Wo rk) Social History Tobacco [...] AM EDT Leonela from [facility] [place] called requesting cardiac clearance for this patient who is to have a colonoscopy on 04/04/19. He is on anticoagulation and they will need to bridge him. Their phone # [phone], fax# [phone]. Thank you. documented in this encounter Plan of Treatment Upcoming Encounters Date Type Specialty Care Team Description 05/28/2022 Appointment Cardiology Zulma Dolan MD [facility] [place], [place] [address] (Wo rk) 05/28/2022 Laboratory Appointment Lab 05/28/2022 Office Visit Cardiology Zulma Dolan MD [facility] [place] [address] Liz Poole PA [facility] [place] [address] 06/10/2022 Office Visit Dermatology Laura Scherer MD [facility] [address] [place], [place] [address] (Wo rk) documented as of this encounter Visit Diagnoses Not on filedocumented in this encounter Care Teams Ball Truing Machine Operator Relationship Specialty Start Date End Date Lovely Vicente MD PCP - General 04/16/[address] [place] [address] documented as of this encounter
--- OUTSIDE RECORDS SUMMARY | 2022-04-10 08:57 | XMS_ITS | Encounter Summary ---
:1945 Author Organization [facility] [place] [address] Care Team Providers Name Role Phone Lovely Vicente MD Primary Care Provider Encounter Details Date Type Department Care Team Description 11/29/2017 Office Visit Cardiology at [facility] Annette Maxwell Chronic systolic congestive heart failure; [facility] A, COTTON WRINGER ASCVD (arteriosclerotic cardiovascular d isease); [facility] Cardiomyopathy, ischemic; [place], [place] PAD (peripheral artery disease) [phone] CARDIOLOGY [phone] [place], [place] [address] Social History Tobacco Use Types [...] in this encounter Progress Notes Annette Maxwell, COTTON WRINGER - 11/29/2017 9:20 AM EDT ID and [...] 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 Plan: 1. A review [...] Zulma Dolan MD [facility] [place], [place] [address] (Wo rk) 05/28/2022 Laboratory Appointment Lab 05/28/2022 Office Visit Cardiology Zulma Dolan [place] [facility] [address] Liz Poole PA [facility] [place] [address] 06/10/2022 Office Visit Dermatology Laura Scherer MD [facility] DR [address] [place], [place] [address] (Wo rk) documented as of this encounter Results Arterial Duplex Leg, Unil (11/29/2017 10:32 AM EDT) Component Value Ref Test Analysis Performed At [facility] Range Method Time Signature VB Text Department: Vascular Surgery Lab VASCUBASE Report Patient: [id number] (GREGORY HOANG) CPT: 62505 ICD10: I72.4;I73.9 Referring Physician: ANNETTE MAXWELL ?? [...] [facility] mg/dL [facility] Comment: Diabetes: >=200 mg/dL plus symp toms BUN 26 (H) 10 - 20 mg/dL [facility] Creatinine 0.96 0.80 - 1.50 mg/dL [facility] [...] 107 mmol/L [facility] CO2 23 22 - 31 mmol/L [facility] Anion Gap 17 (H) 5 - 15 mmol/L [facility] Calcium 8.5 8.5 - 10.5 mg/dL [facility] Estimated GFR >60 >=60 [facility] Comment: The reported eGFR should be multiplied b y 1.2 for patients. The MDRD is not an appropriate measure o f renal function for patients with body mass extremes or in patients with acute kidney failure. http://[employer].Per[employer]ac Financial Solutions/DHnkdep http://Renewal [employer]/DHMCnkf Specimen Anatomical Collection Method Collection Time Receive d Time (Source) Location / / Volume Laterality Blood specimen 11/29/2017 8:22 AM 05/07/2 018 8:29 (specimen) EDT AM EDT Resulting Agency Comment Spec In Lab Annette Maxwell COTTON WRINGER CHEMISTRY ORDERABLES Performing Organization Address City/State/ZIP [place] [address] (ABNORMAL) pro-Brain Natriuretic Peptide (11/29/2017 8:22 AM EDT) P athologist Signature ProBNP 1,769 (H) <=[address] [facility] pg/mL [facility] Specimen Anatomical Collection Method Collection Time Receive d Time (Source) Location / / Volume Laterality Blood specimen 11/29/2017 8:22 AM 018 8:29 (specimen) EDT AM EDT Resulting Agency Comment Spec In Lab Annette Maxwell COTTON WRINGER CHEMISTRY ORDERABLES Performing Organization Address City/[facility]/ZIP [place] [address] documented in this encounter Visit Diagnoses Diagnosis Chronic systolic congestive heart failur e Chronic systolic heart failure ASCVD (arteriosclerotic cardiovascular d isease) Unspecified cardiovascular disease Cardiomyopathy, ischemic Other specified forms of chronic ischemi c heart disease PAD (peripheral artery disease) Peripheral vascular disease, unspecified documented in this encounter Care Teams Barrel Tester And Drainer Relationship Specialty Start Date End Date Lovely Vicente MD PCP - General 04/16/[address] [place] [address] documented as of this encounter
--- OUTSIDE RECORDS SUMMARY | 2022-04-10 08:57 | XMS_ITS | Encounter Summary ---
:1945 Author Organization [facility] [place] [address] Care Team Providers Name Role Phone Lovely Vicente MD Primary Care Provider Encounter Details Date Type Department Care Team Description 09/07/2017 Laboratory Appointment Lab 3L [facility] [place] [address] Social History Tobacco Use Types Packs/Day Years [...] Dolan MD [facility] [place] [address] [place], [place] [address] (Wo rk) 05/28/2022 Laboratory Appointment Lab 05/28/2022 Office Visit Cardiology Zulma Dolan [place] [address] Liz Poole PA [facility] [place] [address] 06/10/2022 Office Visit Dermatology Laura Scherer MD [facility] ER [address] [place], [place] [address] (Wo rk) documented as of this encounter [...] PM EST) athologist Signature Thyroglobulin 1.4 <=54.9 [facility] ng/mL [facility] Comment: Thyroglobulin levels [...] Organization Address City/State/[place] [address] TSH (09/07/2017 2:41 PM EST) athologist Signature TSH 3.93 0.27 - 4.20 [facility] Specimen Anatomical Collection Method Collection Time Receive d Time (Source) Location / / Volume Laterality Blood specimen 09/07/2017 2:41 PM 018 2:46 (specimen) EST PM EST Resulting Agency Comment Spec In Lab Luz Prescott MD CHEMISTRY ORDERABLES Performing Organization Address City/State/[place] [address] documented in this encounter Visit Diagnoses Diagnosis Hx of papillary thyroid carcinoma Personal history of malignant neoplasm o f thyroid documented in this encounter Care Teams Order Takers Supervisor Relationship Specialty Start Date End Date Lovely Vicente MD PCP - General 04/16/[address] [place] [address] documented as of this encounter
--- OUTSIDE RECORDS SUMMARY | 2022-04-10 08:57 | XMS_ITS | Encounter Summary ---
:1945 Author Organization [facility] [place] [address] Care Team Providers Name Role Phone Lovely Vicente MD Primary Care Provider Encounter Details Date Type Department Care Team Description 10/05/2017 Unscheduled Cardiology at [facility] RONNIE Sin PATIENT NOT SEEN Encounter [facility] Tamiko Martinez MD [facility] [address] CARDIOLOGY DEPT [phone] [place] [address] Social History Tobacco Use Types Packs/Day Years [...] Zulma Dolan MD [facility] [address] [place], [place] [address] (Wo rk) 05/28/2022 Laboratory Appointment Lab 05/28/2022 Office Visit Cardiology Zulma Dolan MD [facility] [place] [address] Liz Poole PA [facility] [place] [address] 06/10/2022 Office Visit Dermatology Laura Scherer MD [facility] [address] [place], [place] [address] (Wo rk) documented as of this encounter Visit Diagnoses Diagnosis DH PATIENT NOT SEEN documented in this encounter Care Teams Mechanical Maintenance Worker Relationship Specialty Start Date End Date Lovely Vicente MD PCP - General 04/16/[address] [place] [address] documented as of this encounter
--- OUTSIDE RECORDS SUMMARY | 2022-04-10 08:57 | XMS_ITS | Encounter Summary ---
:1945 Author Organization [facility] [place] [address] Care Team Providers Name Role Phone Lovely Vicente MD Primary Care Provider Encounter Details Date Type Department Care Team Description 11/29/2017 Laboratory Lab 3L [place] Chronic systoli c congestive heart failure; Appointment [facility] ASCVD (ar teriosclerotic cardiovascular disease); Hospital Cardiomyopathy, [place] [address] Social History Tobacco Use Types [...] MD [facility] [place], [place] [address] (Wo rk) 05/28/2022 Laboratory Appointment Lab 05/28/2022 Office Visit Cardiology Zulma Dolan MD [facility] [place] [address] Liz Poole PA [facility] [place] [address] 06/10/2022 Office Visit Dermatology Laura Scherer MD [facility] ER DR [address] [place], [place] [address] (Wo rk) documented as of [...] 12.5 [facility] LABORATORY INR 2.1 [facility] LABORATORY [...] Organization Address City/State/[place] [address] (ABNORMAL) Basic Metabolic Panel (non-fasting) (11/29/2017 8:22 AM EDT) P athologist Signature Glucose Lvl 217 (H) 65 - 199 [facility] mg/dL [facility] Comment: Diabetes: [...] [facility] Estimated GFR >60 >=60 [facility] Comment: The reported eGFR should be multiplied b y 1.2 for patients. The MDRD is not an appropriate measure o f renal function for patients with body mass extremes or in patients with acute kidney failure. http://BUYSTAND.mth sense/DHnkdep http://Atticous/DHMCnkf Specimen Anatomical Collection Method Collection Time Receive d Time (Source) Location / / Volume Laterality Blood specimen 11/29/2017 8:22 AM 018 8:29 (specimen) EDT AM EDT Resulting Agency Comment Spec In Lab Danette Maxwell APRN CHEMISTRY ORDERABLES Performing Organization Address City/State/[place] [address] (ABNORMAL) pro-Brain Natriuretic Peptide (11/29/2017 8:22 AM EDT) P athologist Signature ProBNP 1,769 (H) <=125 [facility] pg/mL [facility] Specimen Anatomical Collection Method Collection Time Receive d Time (Source) Location / / Volume Laterality Blood specimen 11/29/2017 8:22 AM 018 8:29 (specimen) EDT AM EDT Resulting Agency Comment Spec In Lab Danette Maxwell APRN CHEMISTRY ORDERABLES Performing Organization Address City/State/ZIP Code Phon e Number [address] Lavender Tube HOLD (11/29/2017 8:14 AM EDT) Patholo gist Method Time Signature Lavender Hold Sample in [facility] lab. [facility] Specimen Anatomical Collection Method Collection Time Receive d Time (Source) Location / / Volume Laterality Blood specimen No Charge / 11/29/2017 8:14 AM 018 8:29 (specimen) Unknown EDT AM EDT Lovely Vicente MD HEMATOLOGY ORDERABLES Performing Organization Address City/State/[place] [address] documented in this encounter Visit Diagnoses Diagnosis Chronic systolic congestive heart failur e Chronic systolic heart failure ASCVD (arteriosclerotic cardiovascular d isease) Unspecified cardiovascular disease Cardiomyopathy, ischemic Other specified forms of chronic ischemi c heart disease documented in this encounter Care Teams Manager Acute Relationship Specialty Start Date End Date Lovely Vicente MD PCP - General 04/16/[address] [place] [address] documented as of this encounter
--- OUTSIDE RECORDS SUMMARY | 2022-04-10 08:57 | XMS_ITS | Encounter Summary ---
:1945 Author Organization [facility] [place] [address] Care Team Providers Name Role Phone Lovely Vicente MD Primary Care Provider Encounter Details Date Type Department Care Team Description 04/18/2018 Laboratory Appointment Lab 3L [facility] [place] [id number] Social History Tobacco Use Types Packs/Day Years [...] Dolan MD [facility] [place], [place] [address] (Wo rk) 05/28/2022 Laboratory Appointment Lab 05/28/2022 Office Visit Cardiology Zulma Dolan [place] [address] Liz Poole PA [facility] [place] [address] 06/10/2022 Office Visit Dermatology Laura Scherer MD [facility] ER DR TEJA GR-DERMAT [place], [place] [address] (Wo rk) documented as of [...] Signature Total Protein 7.6 6.1 - 8.0 [facility] R[facility] gm/dL [facility] Albumin 4.0 3.2 - 5.2 [facility] gm/dL [facility] AST 36 0 - 39 [facility] unit/L [facility] ALT 27 0 - 55 [facility] unit/L [facility] Alk Phos 96 40 - 120 [facility] unit/L [facility] Total 0.7 0.2 - 1.3 [facility] [employer] Bilirubin mg/dL [facility] Bili, Direct 0.1 0.0 - 0.3 [facility] mg/dL [facility] Specimen Anatomical Collection Method Collection Time Receive d Time (Source) Location / / Volume Laterality Blood specimen Venous Draw / 04/18/2018 9:19 AM 2017 9:44 (specimen) Unknown EDT AM EDT Resulting Agency Comment Spec In Lab Danette Maxwell APRN CHEMISTRY ORDERABLES Performing Organization Address City/State/[place] [address] TSH (04/18/2018 9:19 AM EDT) athologist Signature TSH 1.77 0.27 - 4.20 [facility] mlU/ML [facility] Specimen Anatomical Collection Method Collection Time Receive d Time (Source) Location / / Volume Laterality Blood specimen Venous Draw / 04/18/2018 9:19 AM 2017 9:44 (specimen) Unknown EDT AM EDT Resulting Agency Comment Spec In Lab Danette Maxwell APRN CHEMISTRY ORDERABLES Performing Organization Address City/State/[place] [address] (ABNORMAL) Basic Metabolic Panel (non-fasting) (04/18/2018 9:19 AM EDT) athologist Signature Glucose Lvl 167 65 - 199 [facility] mg/dL [facility] Comment: Diabetes: >=200 mg/dL plus symp toms BUN 18 10 - 20 mg/dL [facility] Creatinine 1.19 0.80 - 1.50 [...] Gap 23 (H) 5 - 15 mmol/L [facility] [...] of body mass or the acutely ill. http://Halalati/DHMCnkf eGFR 70 >=60 mL/min/1.73 m?? [facility] Comment: The eGFR was calculated using the CKD-EP I equation. As with all creatinine based estimates of kidney function, eGFR values calculated with the CKD-EPI equation are not accurate in patients wi th acute kidney failure, extremes of body mass or the acutely ill. http://Halalati/DHnkf Specimen Anatomical Collection Method Collection Time Receive d Time (Source) Location / / Volume Laterality Blood specimen 04/18/2018 9:19 AM 018 9:34 (specimen) EDT AM EDT Resulting Agency Comment Spec In Lab Danette Maxwell APRN CHEMISTRY ORDERABLES Performing Organization Address City/[facility]/ZIP [place] [address] (ABNORMAL) pro-Brain Natriuretic Peptide (04/18/2018 9:19 AM EDT) P athologist Signature ProBNP 2,199 (H) <=125 [facility] pg/mL [facility] Specimen Anatomical Collection Method Collection Time Receive d Time (Source) Location / / Volume Laterality Blood specimen 04/18/2018 9:19 AM 018 9:34 (specimen) EDT AM EDT Resulting Agency Comment Spec In Lab Danette Maxwell APRN CHEMISTRY ORDERABLES Performing Organization Address City/[facility]/ZIP [place] [address] documented in this encounter Visit Diagnoses Diagnosis Chronic systolic heart failure documented in this encounter Care Teams Preparation Operator Relationship Specialty Start Date End Date Lovely Vicente MD PCP - General 04/16/[address] [place] [address] documented as of this encounter
--- OUTSIDE RECORDS SUMMARY | 2022-04-10 08:57 | XMS_ITS | Encounter Summary ---
:1945 Author Organization [place] [address] Care Team Providers Name Role Phone Lovely Vicente MD Primary Care Provider Encounter Details Date Type Department Care Team Description 08/26/2017 Hospital Encounter Vascular Lab at [facility], Athero embolism of foot, right; [place], [place] Delayed surgi nusrat wound healing, [place] [phone] Social History Tobacco Use Types Packs/Day Years [...] Zulma Dolan MD [facility] [address] [place], [place] [address] (Wo rk) 05/28/2022 Laboratory Appointment Lab 05/28/2022 Office Visit Cardiology Zulma Dolan MD [facility] [place] [address] Liz Poole PA [facility] [place] [address] 06/10/2022 Office Visit Dermatology Laura Scherer MD [facility] DR TE[address] GR[address]DERMAT [place]LOG[place], [place] [address] (Wo rk) documented as of [...] Department: Vascular Surgery Lab VASCUBASE Report Patient: [id number] (DON HOANG) CPT: 30499 ICD10: T81.89XA;I75.021 Referring Physician: ELVER BLOOM ?? [...] encounter documented in this encounter Care Teams Underground Mine Superintendent Relationship Specialty Start Date End Date Lovely Vicente MD PCP - General 04/16/[address] [place] [address] documented as of this encounter
--- OUTSIDE RECORDS SUMMARY | 2022-04-10 08:57 | XMS_ITS | Encounter Summary ---
:1945 Author Organization [facility] [place] [address] Care Team Providers Name Role Phone Lovely Vicente MD Primary Care Provider Encounter Details Date Type Department Care Team Description 08/15/2018 Office Visit Cardiology at [facility] Danette Maxwell Chronic systolic heart failu re; [facility] A, MANAGER UTILIZATION Cardiomyopathy, ischemic; [facility] ASCVD (arteriosclerotic card iovascular disease); [place], [place] Essential hypertension; [phone] CARDIOLOGY MARIA VICTORIA on CPAP [phone] [place], [place] [address] Social History Tobacco Use Types [...] in this encounter Progress Notes Danette Maxwell, MANAGER UTILIZATION - 08/15/2018 9:00 AM EST Images from [...] K+ 4.6 today 6. Post-op atrial fibrillation [id number] (CHF, HTN, DM, vascular disease, thromboembolism) Amiodarone discontinued Continue coumadin INR managed by PCP. 2.1 today 7. PAD 08/06/2017: Right 1st, 2nd, 3rd toe amputation 08/11/2017: Left??femoral arterial access, RLE??angiogram, Balloon angioplasty of R PT with Eleazar 2.5 x 80 10/25/2017: right popliteal-pedal bypass at [facility] 8. Hypothyrodism S/p thyroidectomy for goiter [...] Dolan MD [facility] [address] [place] [address] (Wo rk) 05/28/2022 Laboratory Appointment Lab 05/28/2022 Office Visit Cardiology Zulma Dolan MD [facility] [place] [address] Liz Poole PA [facility] [place] [address] 06/10/2022 Office Visit Dermatology Laura Scherer MD [facility] ER DR [address]-DERMAT OLOGY [place], [place] [address] (Wo rk) documented as of this encounter Results Lipid Panel (08/15/2018 8:04 AM EST) athologist Signature Chol, Total 75 mg/dL [facility] Comment: Lower Risk: <200 mg/dL Average Risk: 200-239 mg/dL Higher Risk: >pl=951 mg/dL Triglycerides 185 mg/dL [facility] Comment: Average Risk/Lower Risk: <150 mg/dL Borderline High Risk: 150-199 mg/dL High Risk: 200-499 mg/dL Very High Risk: >fj=827 mg/dL HDL 32 mg/dL [facility] Comment: Males: ?? Higher Risk: <40 mg/dL Females: ?? HIgher Risk: <50 mg/dL LDL Cholesterol 6 mg/dL [facility] Comment: Lowest Risk: <100 mg/dL Lower Risk: 100-129 mg/dL Borderline High Risk: 130-159 mg/dL High Risk: 160-189 mg/dL Very High Risk: >sn=360 mg/dL Chol/HDL Ratio 2.3 ratio [facility] Lipid Interpretation See Note [facility] Comment: Lipid management should be guided by a p atient? s ASCVD risk, goals and preferences. ACC/AHA Guidelines recommend high intens ity statin if clinical ASCVD or LDL greater than or equal to 190 mg/dL. http://Heyourl.com/RNV-UOS-Akyuuezva Adults aged 40-75 with LDL 70-189 mg/dL should have their 10 year ASCVD risk estimated with the ACC/AHA ASCVD risk es timator http://tools.acc.org/JAKWE-Unvc-Jkvjehui r/ Statin should be discussed if risk [...] Organization Address City/State/[place] [address] (ABNORMAL) Basic Metabolic Panel (non-fasting) (08/15/2018 8:04 AM EST) P athologist Signature Glucose Lvl 116 65 - 199 [facility] mg/dL [facility] Comment: Diabetes: >=200 [...] of body mass or the acutely ill. http://frintit/[facility] MUS[facility]GEEnkf eGFR 79 >=60 mL/min/1.73 m?? [facility] Comment: The eGFR was calculated using the CKD-EP I equation. As with all creatinine based estimates of kidney function, eGFR values calculated with the CKD-EPI equation are not accurate in patients wi th acute kidney failure, extremes of body mass or the acutely ill. http://frintit/[facility] MUSKOGEEnkf Specimen Anatomical Collection Method Collection Time Receive d Time (Source) Location / / Volume Laterality Blood specimen 08/15/2018 8:04 AM 019 8:20 (specimen) EST AM EST Resulting Agency Comment Spec In Lab Danette Maxwell APRN CHEMISTRY ORDERABLES Performing Organization Address City/State/ZIP Code Phon e Number [address] (ABNORMAL) pro-Brain Natriuretic Peptide (08/15/2018 8:04 AM EST) P athologist Signature ProBNP 1,797 (H) <=125 [facility] Specimen Anatomical Collection Method Collection Time Receive d Time (Source) Location / / Volume Laterality Blood specimen 08/15/2018 8:04 AM 019 8:20 (specimen) EST AM EST Resulting Agency Comment Spec In Lab Danette Maxwell APRN CHEMISTRY ORDERABLES Performing Organization Address City/State/[place] [address] documented in this encounter Visit Diagnoses Diagnosis Chronic systolic heart failure Cardiomyopathy, ischemic Other specified forms of chronic ischemi c heart disease ASCVD (arteriosclerotic cardiovascular d isease) Unspecified cardiovascular disease Essential hypertension Unspecified essential hypertension MARIA VICTORIA on CPAP Obstructive sleep apnea (adult) (pediatr ic) documented in this encounter Care Teams Franchise Field Consultant Relationship Specialty Start Date End Date oLvely Vicente MD PCP - General 04/16/[address] [place] [address] documented as of this encounter
--- OUTSIDE RECORDS SUMMARY | 2022-04-10 08:57 | XMS_ITS | Encounter Summary ---
:1945 Author Organization [facility] [place] [address] Care Team Providers Name Role Phone Lovely Vicente MD Primary Care Provider Reason for Visit Reason Onset Date Comments Follow-up 07/13/2018 amiodarone discontin ued Encounter Details Date Type Department Care Team Description 07/13/[address] [facility] Martha Comer, Follow-up (amiodarone [facility] RN discontin ued) [place] [phone] Social History Tobacco Use Types Packs/Day [...] RN - 07/13/2018 8:57 AM EST Per MANAGED SERVICES CONSULTANT Hans call placed to the home number for the pt. confirmed that the pt is still taking the amiodarone. Pt is to stop the amiodarone. Pt taking it for post op a-fib, therapy was supposed to be for 30 days. Message given to his . She will give him the message and will have him call with any questions. Call placed to the [facility] in [place] to discontinue it there as well. Med list updated. documented in this encounter Plan of Treatment Upcoming Encounters Date Type Specialty Care Team Description 05/28/2022 Appointment Cardiology Zulma Dolan MD [facility] [address] [place], [place] [address] (Wo rk) 05/28/2022 Laboratory Appointment Lab 05/28/2022 Office Visit Cardiology Zulma Dolan MD [facility] [place] [address] Liz Poole PA [facility] [place] [address] 06/10/2022 Office Visit Dermatology Laura Scherer MD [facility] DR [address]MAT [place], [place] [address] (Wo rk) documented as of this encounter Visit Diagnoses Not on filedocumented in this encounter Care Teams Court Recorder Relationship Specialty Start Date End Date Lovely Vicente MD PCP - General 04/16/[address] [place] [address] documented as of this encounter
--- OUTSIDE RECORDS SUMMARY | 2022-04-10 08:57 | XMS_ITS | Encounter Summary ---
:1945 Author Organization [facility] [place] [address] Care Team Providers Name Role Phone Lovely Vicente MD Primary Care Provider Reason for Visit Reason Onset Date Comments Other 11/11/2017 Please call [facility] Encounter Details Date Type Department Care Team Description 11/11/2017 Telephone Cardiology at [facility] Danette Maxwell, Other (Please call [facility] CULINARY ASSISTANT [facility] [place] [address] CARDIOLOGY [place], [place] [address] (Wo rk) Social History [...] Zulma Dolan MD [facility] [address] [place], [place] [address] (Wo rk) 05/28/2022 Laboratory Appointment Lab 05/28/2022 Office Visit Cardiology Zulma Dolan MD [facility] [place] [address] Liz Poole PA [facility] [place] [address] 06/10/2022 Office Visit Dermatology Laura Scherer MD [facility] DR [address] [place], [place] [address] (Wo rk) documented as of this encounter Visit Diagnoses Not on filedocumented in this encounter Care Teams Manager Health Relationship Specialty Start Date End Date Lovely Vicente MD PCP - General 04/16/15 [facility] [address] [place] [address] documented as of this encounter
--- OUTSIDE RECORDS SUMMARY | 2022-04-10 08:57 | XMS_ITS | Encounter Summary ---
:1945 Author Organization [facility] [place] [address] Care Team Providers Name Role Phone Lovely Vicente MD Primary Care Provider Reason for Referral Diagnostic Test (Routine) - Closed Specialty Diagnoses / Procedures Referred By Contact Refer red To Contact Cardiology Diagnoses Ischemic cardiomyopathy Acute on chronic systolic congestive heart failure Danette Maxwell APRN [facility] Non-Inv Card Lab Procedures Echocardiogram Transthoracic(Leb) [facility] [place] [address] [place] [address] Referral ID Status Reason Start Date Expiration Date Visits V isits Requested Authorized [id number] Closed Specialty 08/30/2017 08/30/2018 1 1 Service Requested Reason for Visit Diagnostic Test (Routine) - Closed Specialty Diagnoses / Procedures Referred By Contact Refer red To Contact Cardiology Diagnoses Ischemic cardiomyopathy Acute on chronic systolic congestive heart failure Danette Maxwell APRN [facility] Non-Inv Card Lab Procedures Echocardiogram Transthoracic(Leb) [facility] [place] [address] [place] [address] Referral ID Status Reason Start Date Expiration Date Visits V isits Requested Authorized [id number] Closed Specialty 08/30/2017 08/30/2018 1 1 Service Requested Encounter Details Date Type Department Care Team Description 10/07/2017 Hospital Encounter Non-Invasive Ischemic cardiomyopathy; Cardiology Lab Barbara Craig on chronic systolic [place] [address] Social History Tobacco Use Types Packs/Day [...] Description 05/28/2022 Appointment Cardiology Zulma Dolan MD [facility] Medical [facility] [address] [place], [place] [address] (Wo rk) 05/28/2022 Laboratory Appointment Lab 05/28/2022 Office Visit Cardiology Zulma Dolan MD [facility] [place] [address] Liz Poole PA [facility] [place] [address] 06/10/2022 Office Visit Dermatology Laura Scherer MD [facility] DR [address]MAT [place], [place] [address] (Wo rk) documented [...] Mccollum ? (Age): 1945(72y) Med Rec#: ? [id number] ?Sex: ?M ? Site Loc: ? [facility] ?Ht / Wt: ??173(cm)/82(kg) Pt. Loc: ?Echo Lab ?BSA: ?1.96 Study Date: ?? 10/07/2017 ?Pt. Type: Outpatient Tape: ? Referring: Danette Maxwell Reading: Iker Cuevas ([id number]) Rollout Manager: Yonathan Bocanegra Diagnosis: *ICD-10-PCS Ischemic cardiomyopathy [...] E-wave Vmax ?1.2 ?m/sec ? MV deceleration drct810 ?msec ? MV A-wave Vmax ?1 ?m/sec [...] Mid-Inferior ?Hypokinetic ? Mid-Inferoseptal ?Hypokinetic ? [place]-Septal ? Akinetic ? [place]-Anterior ? Hypokinetic ? [place]-Lateral ?Hypokinetic ? [place]-Inferior ? Hypokinetic ? [place]-Tip ?Akinetic ? This report has been electronically sign ed by: _ Iker Cuevas M.D. ? 10/07/2017 11:12:34 Images reviewed and interpretation verif ied [facility] Cardiac Ultrasound Laboratory Procedure Note Iker Cuevas MD - 10/07/2017Formatti ng of this note might be different from the original. Procedure: Transthoracic Echocardiogram Patient: NAATLYA MCBRIDE(Age): [birth year]72y) Med Rec#: [id number] Sex: M Site Loc: [facility] Ht / Wt: 173(cm)/82(kg) Pt. Loc: Echo Lab BSA: 1.96 Study Date: 10/07/2017 Pt. Type: Outpati ent Tape: Referring: Danette Maxwell Reading: Iker Cuevas ([id number]) Rollout Manager: Yonathan Bocanegra Diagnosis: *ICD-10-PCS Ischemic cardiomyopathy [...] MV E-wave Vmax 1.2 m/sec MV deceleration sqxc186 msec MV A-wave Vmax 1 m/sec MV [...] Akinetic Mid-Posterolateral Hypokinetic Mid-Inferior Hypokinetic Mid-Inferoseptal Hypokinetic [place]-Septal Akinetic [place]-Anterior Hypokinetic [place]-Lateral Hypokinetic [place]-Inferior Hypokinetic [place]-Tip Akinetic This report has been electronically sign ed by: _ Iker Cuevas M.D. 10/07/2017 11:12 :34 Images reviewed and interpretation elvie hwang Golden [...] Routine documented in this encounter Care Teams Fishing Worker Relationship Specialty Start Date End Date Lovely Vicente MD PCP - General 04/16/[address] [place] [address] documented as of this encounter
--- OUTSIDE RECORDS SUMMARY | 2022-04-10 08:57 | XMS_ITS | Encounter Summary ---
:1945 Author Organization [place] [address] Care Team Providers Name Role Phone Lovely Vicente MD Primary Care Provider Encounter Details Date Type Department Care Team Description 11/29/2017 Hospital Encounter Vascular Lab at [facility] PAD (peripheral [facility] [place] [phone] Social History Tobacco Use Types Packs/Day Years [...] MD [facility] [address] [place], [place] [address] (Wo rk) 05/28/2022 Laboratory Appointment Lab 05/28/2022 Office Visit Cardiology Zulma Dolan MD [facility] [place] [address] Liz Poole PA [facility] [place] [address] 06/10/2022 Office Visit Dermatology Laura Scherer MD [facility] DR [address]MAT [place]LOG[place], [place] [address] (Wo rk) documented as [...] Department: Vascular Surgery Lab VASCUBASE Report Patient: [id number] (DON HOANG) CPT: 63327 ICD10: I72.4;I73.9 Referring Physician: DANETTE MAXWELL ?? [...] documented in this encounter Care Teams Manager Molecular Relationship Specialty Start Date End Date Lovely Vicente MD PCP - General 04/16/[address] [place], [place] [address]Y [facility] [address] [place] [address] documented as of this encounter
--- OUTSIDE RECORDS SUMMARY | 2022-04-10 08:57 | XMS_ITS | Encounter Summary ---
:1945 Author Organization [facility] [place] [address] Care Team Providers Name Role Phone Lovely Vicente MD Primary Care Provider Reason for Visit Reason Onset Date Comments VNA Calls 08/30/2017 Encounter Details Date Type Department Care Team Description 08/30/2017 Telephone Vascular Surgery at [facility] Cora Reid RN VNA Calls [facility] [place] [address] Social History Tobacco Use Types Packs/Day [...] 08/30/2017 11:16 AM EST Caller: Alfonso at [facility] [phone] Reason for call: Changing his wound vac [...] had been in contact with [facility]'s Wound Care Nurse who advised [...] MD [facility] [place] [address] (Wo rk) 05/28/2022 Laboratory Appointment Lab 05/28/2022 Office Visit Cardiology Zulma Dolan MD [facility] [place] [address] Liz Poole PA [facility] [place] [address] 06/10/2022 Office Visit Dermatology Laura Scherer MD [facility] DR [address] [place], [place] [address] (Wo rk) documented as of this encounter Visit Diagnoses Not on filedocumented in this encounter Care Teams Auto Parker Relationship Specialty Start Date End Date Lovely Vicente MD PCP - General 04/16/[address] [place] [address] documented as of this encounter
--- OUTSIDE RECORDS SUMMARY | 2022-04-10 08:57 | XMS_ITS | Encounter Summary ---
:1945 Author Organization [facility] Address [address] [place] [address] Care Team Providers Name Role Phone Lovely Vicente MD Primary Care Provider Reason for Referral Diagnostic Test (Routine) - Closed Specialty Diagnoses / Procedures Referred By Contact Refer red To Contact Cardiology Diagnoses Chronic systolic heart failure Danette Maxwell APRN [facility] Non-Inv Card Lab Procedures Echocardiogram Transthoracic(Leb) [facility] [address] [place] [address] [place] [address] Referral ID Status Reason Start Date Expiration Date Visits V isits Requested Authorized [id number] Closed Specialty 07/17/2019 09/14/2019 1 1 Service Requested Encounter Details Date Type Department Care Team Description 01/16/2019 Office Visit Cardiology at [facility] Danette Maxwell, Chronic systolic heart failu re; [facility] STACIE Cardiomyopathy, ischemic; Drive [facility] Hx of thyroid cancer; [place], [place] DR [place] (arteriosclerotic heart disease); [phone] CARDIOLOGY MARIA VICTORIA (obstructive sleep apnea) on CPAP [phone] [place], [place] [address] (Wo rk) Social History Tobacco Use Types [...] K+ 4.6 today 6. Post-op atrial fibrillation [id number] (CHF, HTN, DM, vascular disease, thromboembolism) Amiodarone discontinued Continue coumadin INR managed by PCP. 2.1 today 7. PAD 08/06/2017: Right 1st, 2nd, 3rd toe amputation 08/11/2017: Left??femoral arterial access, RLE??angiogram, Balloon angioplasty of R PT with Eleazar 2.5 x 80 10/25/2017: right popliteal-pedal bypass at [facility] 8. Hypothyrodism S/p thyroidectomy for [...] [facility] [place], [place] [address] (Wo rk) 05/28/2022 Laboratory Appointment Lab 05/28/2022 Office Visit Cardiology Zulma Dolan [place] [address] Liz Poole PA [facility] [place] [address] 06/10/2022 Office Visit Dermatology Laura Scherer MD [facility] [address] OLOGY [place], [place] [address] (Wo rk) documented as of this encounter Results ECHOCARDIOGRAM COMPLETE W CONTRAST (07/28/2019 8:19 AM EST) athologist Signature EF 40 [facility] Anatomical Region Laterality Modality Other Specimen (Source) Anatomical Location Collection Method / Collectio n Time Received Time / Laterality Volume 07/28/2019 Narrative 07/28/2019 8:38 AM EST Procedure: ?Transthoracic Echocardiogram Patient: ?NATALYA Mccollum ? (Age): 1945(74y) Med Rec#: ? [id number] ?Sex: ?M ? Site Loc: ? [facility] ?Ht / Wt: ??172(cm)/81(kg) Pt. Loc: ?Echo Lab ?BSA: ?1.94 Study Date: ?? 07/28/2019 ?Pt. Type: Outpatient Tape: ? Referring: MARY ELLEN Reading: Ifeanyi Truong ([id number]) Earth Science Teacher: Fadumo Flanagan RDCS, REGINA Diagnosis: *Chronic systolic [...] E-wave Vmax ?1 ?m/sec ? MV deceleration qwaz043.5 ? msec ? MV A-wave Vmax ?1 [...] ? Pulmonic Valve/Qp:Qs ?Value ?Units (Range) ? SC end-diastolic Vma1.1 ?m/sec ? Wall Motion: Segment Name ?Rest ? Base-Anteroseptal ?? Normal ? Base-Anterior ? Normal ? Base-Anterolateral ??Normal ? Base-Posterolateral Normal ? Base-Inferior ? Akinetic ? Base-Inferoseptal ?? Normal ? Mid-Anteroseptal ?Normal ? Mid-Anterior ?Hypokinetic ? Mid-Anterolateral ?? Normal ? Mid-Posterolateral ??Normal ? Mid-Inferior ?Hypokinetic ? Mid-Inferoseptal ?Normal ? [place]-Septal ? Normal ? [place]-Anterior ? Hypokinetic ? [place]-Lateral ?Normal ? [place]-Inferior ? Akinetic ? [place]-Tip ?Hypokinetic ? This report has been electronically sign ed by: _ Ifeanyi Truong M.D. ? 07/28/2019 0 8:38:01 Images reviewed [facility] Procedure Note Ifeanyi Truong MD - 07/28/2019Formatt ing of this note might be different from the original. Procedure: Transthoracic Echocardiogram Patient: NATALYA MCBRIDE(Age): [birth year]74y) Med Rec#: [id number] Sex: M Site Loc: [facility] Ht / Wt: 172(cm)/81(kg) Pt. Loc: Echo Lab BSA: 1.94 Study Date: 07/28/2019 Pt. Type: Outpati ent Tape: Referring: MARY ELLEN Reading: Ifeanyi Truong ([id number]) Earth Science Teacher: Fadumo Flanagan [facility], REGINA Diagnosis: *Chronic systolic (congestive) heart [...] MV E-wave Vmax 1 m/sec MV deceleration inxd955.5 msec MV A-wave Vmax 1 m/sec MV [...] 0.7 ratio Pulmonic Valve/Qp:Qs Value Units (Range) SC end-diastolic Vma1.1 m/sec Wall Motion: Segment Name Rest Base-Anteroseptal Normal Base-Anterior Normal Base-Anterolateral Normal Base-Posterolateral Normal Base-Inferior Akinetic Base-Inferoseptal Normal Mid-Anteroseptal Normal Mid-Anterior Hypokinetic Mid-Anterolateral Normal Mid-Posterolateral Normal Mid-Inferior Hypokinetic Mid-Inferoseptal Normal [place]-Septal Normal [place]-Anterior Hypokinetic [place]-Lateral Normal [place]-Inferior Akinetic [place]-Tip Hypokinetic This report has been electronically sign ed by: _ Ifeanyi Truong M.D. 07/28/2019 08:38:0 1 Images reviewed and interpretation verif ied [facility] Cardiac Ultrasound Laboratory Danette Maxwell APRN ECHO ORDERABLES (ABNORMAL) Basic Metabolic Panel (non-fasting) (01/16/2019 7:49 AM EDT) P athologist Signature Glucose Lvl 105 65 - 199 [facility] mg/dL [facility] Comment: [...] estions. Chloride 106 98 - 107 mmol/L [facility] CO2 26 22 - 31 mmol/L [facility] [...] of body mass or the acutely ill. http://Growl Media/[employer] Financial Partnersnkf eGFR 79 >=60 mL/min/1.73 m?? [facility] Comment: The eGFR was calculated using the CKD-EP I equation. As with all creatinine based estimates of kidney function, eGFR values calculated with the CKD-EPI equation are not accurate in patients wi th acute kidney failure, extremes of body mass or the acutely ill. http://Growl Media/[facility] WEATH[facility]ORDnkf Specimen Anatomical Collection Method Collection Time Receive d Time (Source) Location / / Volume Laterality Blood specimen 01/16/2019 7:49 AM 019 7:55 (specimen) EDT AM EDT Resulting Agency Comment Spec In Lab Danette Maxwell APRN CHEMISTRY ORDERABLES Performing Organization Address City/State/[place] [address] (ABNORMAL) pro-Brain Natriuretic Peptide (01/16/2019 7:49 AM EDT) P athologist Signature ProBNP 780 (H) <=125 pg/mL [facility] Specimen Anatomical Collection Method Collection Time Receive d Time (Source) Location / / Volume Laterality Blood specimen 01/16/2019 7:49 AM 019 7:55 (specimen) EDT AM EDT Resulting Agency Comment Spec In Lab Danette Maxwell HAZMAT TECHNICIAN CHEMISTRY ORDERABLES Performing Organization Address City/State/[place] [address] documented in this encounter Visit Diagnoses Diagnosis Chronic systolic heart failure Cardiomyopathy, ischemic Other specified forms of chronic ischemi c heart disease Hx of thyroid cancer Personal history of malignant neoplasm o f thyroid ASHD (arteriosclerotic heart disease) Coronary atherosclerosis of unspecified type of vessel, [place] or graft MARIA VICTORIA (obstructive sleep apnea) on CPAP Obstructive sleep apnea (adult) (pediatr ic) Chronic systolic heart failure documented in this encounter Care Teams Gleason Gear Generator Relationship Specialty Start Date End Date Lovely Vicente MD PCP - General 04/16/[address] [place] [address] documented as of this encounter
--- OUTSIDE RECORDS SUMMARY | 2022-04-10 08:57 | XMS_ITS | Encounter Summary ---
:1945 Author Organization [facility] Address [facility] [place] [address] Care Team Providers Name Role Phone Lovely Vicente MD Primary Care Provider Reason for Referral Diagnostic Test (Routine) - Specialty Diagnoses / Procedures Referred By Contact Refer red To Contact Cardiology Diagnoses Chronic systolic heart failure Danette Maxwell APRN [facility] Non-Inv Card Lab Procedures Echocardiogram Transthoracic(Leb) [facility] [place] [address] [place] [address] Referral ID Status Reason Start Date Expiration Visits Visits Date Requested Authorized [id number] Specialty 08/15/2018 08/15/2018 1 1 Service Requested Encounter Details Date Type Department Care Team Description 04/18/2018 Office Visit Cardiology at [facility] Danette Maxwell Chronic systolic heart failu re; [facility] STACIE Gomes On amiodarone therapy; [facility] Ischemic cardiomyopathy; [place], [place] DR ONOFRE (arteriosclerotic cardiovascular d isease) [phone] CARDIOLOGY [phone] [place], [place] [address] Social History Tobacco Use Types Packs/Day Years [...] in this encounter Progress Notes Danette Maxwell, LINE OUT MAN - 04/18/2018 10:40 AM EDT ID and [...] right popliteal-pedal bypass at [facility] ? Plan: 1. A review [...] MD [facility] [address] [place], [place] [address] (Wo rk) 05/28/2022 Laboratory Appointment Lab 05/28/2022 Office Visit Cardiology Zulma Dolan MD [facility] [place] [address] Liz Poole PA [facility] [place] [address] 06/10/2022 Office Visit Dermatology Laura Scherer MD [facility] DR [address] [place], [place] [address] (Wo [...] Mccollum ? (Age): 1945(73y) Med Rec#: ? [id number] ?Sex: ?M ? Site Loc: ? [facility] ?Ht / Wt: ??172(cm)/81(kg) Pt. Loc: ?Echo Lab ?BSA: ?1.94 Study Date: ?? 08/15/2018 ?Pt. Type: Outpatient Tape: ? Referring: MARY ELLEN Reading: Scott Ortega ([id number]) Inventory And Pricing Associate: Laura Sargent Diagnosis: *Chronic systolic (congestive) [...] E-wave Vmax ?1.2 ?m/sec ? MV deceleration rrij724.4 ? msec ? MV A-wave Vmax ?0.7 [...] ? Mid-Inferior ?Hypokinetic ? Mid-Inferoseptal ?Hypokinetic ? [place]-Septal ? Akinetic ? [place]-Anterior ? Hypokinetic ? [place]-Lateral ?Akinetic ? [place]-Inferior ? Hypokinetic ? [place]-Tip ?Akinetic ? This report has been electronically sign ed by: _ Scott Ortega M.D. ? 08/15/2018 08:17:26 Images reviewed and interpretation verif ied [facility] Cardiac Ultrasound Laboratory Procedure Note Scott Ortega MD - 08/15/2018Format ting of this note might be different from the original. Procedure: Transthoracic Echocardiogram Patient: NATALYA MCBRIDE(Age): [birth year]73y) Med Rec#: [id number] Sex: M Site Loc: [facility] Ht / Wt: 172(cm)/81(kg) Pt. Loc: Echo Lab BSA: 1.94 Study Date: 08/15/2018 Pt. Type: Outpati ent Tape: Referring: MARY ELLEN Reading: Scott Ortega ([id number]) Inventory And Pricing Associate: Laura Sargent Diagnosis: *Chronic systolic (congestive) [...] MV E-wave Vmax 1.2 m/sec MV deceleration zjqx477.4 msec MV A-wave Vmax 0.7 m/sec MV [...] Akinetic Mid-Posterolateral Akinetic Mid-Inferior Hypokinetic Mid-Inferoseptal Hypokinetic [place]-Septal Akinetic [place]-Anterior Hypokinetic [place]-Lateral Akinetic [place]-Inferior Hypokinetic [place]-Tip Akinetic This report has been electronically sign ed by: _ Scott Ortega M.D. 08/15/2018 08:17: 26 Images reviewed and interpretation verif ied [facility] Cardiac Ultrasound Laboratory Danette Maxwell APRN ECHO ORDERABLES (ABNORMAL) Basic Metabolic Panel (non-fasting) (04/18/2018 9:19 AM EDT) P athologist Signature Glucose Lvl 167 65 - 199 [facility] mg/dL [facility] Comment: Diabetes: [...] of body mass or the acutely ill. http://Accelalox/[facility] – TULSAnkf eGFR 70 >=60 mL/min/1.73 m?? [facility] Comment: The eGFR was calculated using the CKD-EP I equation. As with all creatinine based estimates of kidney function, eGFR values calculated with the CKD-EPI equation are not accurate in patients wi th acute kidney failure, extremes of body mass or the acutely ill. http://Accelalox/[facility] – TULSAnkf Specimen Anatomical Collection Method Collection Time Receive d Time (Source) Location / / Volume Laterality Blood specimen 04/18/2018 9:19 AM 018 9:34 (specimen) EDT AM EDT Resulting Agency Comment Spec In Lab Danette Maxwell APRN CHEMISTRY ORDERABLES Performing Organization Address City/State/[place] [address] (ABNORMAL) pro-Brain Natriuretic Peptide (04/18/2018 9:19 AM EDT) P athologist Signature ProBNP 2,199 (H) <=125 [facility] pg/mL [facility] Specimen Anatomical Collection Method Collection Time Receive d Time (Source) Location / / Volume Laterality Blood specimen 04/18/2018 9:19 AM 018 9:34 (specimen) EDT AM EDT Resulting Agency Comment Spec In Lab Danette Maxwell APRN CHEMISTRY ORDERABLES Performing Organization Address City/State/[place] [address] documented in this encounter Visit Diagnoses Diagnosis Chronic systolic heart failure On amiodarone therapy Ischemic cardiomyopathy Other specified forms of chronic ischemi c heart disease ASCVD (arteriosclerotic cardiovascular d isease) Unspecified cardiovascular disease Chronic systolic heart failure documented in this encounter Care Teams Aviation Consultant Relationship Specialty Start Date End Date Lovely Vicente MD PCP - General 04/16/[address] [place] [address] documented as of this encounter
--- OUTSIDE RECORDS SUMMARY | 2022-04-10 08:57 | XMS_ITS | Encounter Summary ---
:1945 Author Organization [facility] [place] [address] Care Team Providers Name Role Phone Lovely Vicente MD Primary Care Provider Encounter Details Date Type Department Care Team Description 10/07/2017 Laboratory Appointment Lab 3L [facility] [place] [phone] Social History Tobacco Use Types Packs/Day Years [...] MD [facility] [place] [address] (Wo rk) 05/28/2022 Laboratory Appointment Lab 05/28/2022 Office Visit Cardiology Zulma Dolan MD [facility] [place] [address] Liz Poole PA [facility] [place] [address] 06/10/2022 Office Visit Dermatology Laura Scherer MD [facility] ER DR [address] ENIDReal [facility] Amy (Wo rk) documented as of [...] Lvl 99 65 - 199 [facility] mg/dL [facility] Comment: Diabetes: >=200 [...] or in patients with acute kidney failure. [email or web address].Inmoo/DHnkdep [email or web address].Inmoo/DHMCnkf Specimen Anatomical Collection Method Collection Time Receive d Time (Source) Location / / Volume Laterality Blood specimen 10/07/2017 8:48 AM 018 8:50 (specimen) EDT AM EDT Resulting Agency Comment Spec In Lab Danette Maxwell SUPERVISOR HANGING AND TRIMMING CHEMISTRY ORDERABLES Performing Organization Address City/[facility]/ZIP Code Phon e Number [address] (ABNORMAL) pro-Brain Natriuretic Peptide (10/07/2017 8:48 AM EDT) athologist Signature ProBNP 1,170 (H) <=125 [facility] pg/mL [facility] Specimen Anatomical Collection Method Collection Time Receive d Time (Source) Location / / Volume Laterality Blood specimen 10/07/2017 8:48 AM 018 8:50 (specimen) EDT AM EDT Resulting Agency Comment Spec In Lab Danette A Hans QUINONES CHEMISTRY ORDERABLES Performing Organization Address City/State/[place] [address] documented in this encounter Visit Diagnoses Diagnosis Chronic systolic heart failure documented in this encounter Care Teams Erp Analyst Relationship Specialty Start Date End Date Lovely Vicente MD PCP - General 04/16/[address] [place] [address] documented as of this encounter
--- OUTSIDE RECORDS SUMMARY | 2022-04-10 08:57 | XMS_ITS | Encounter Summary ---
:1945 Author Organization [place] [address] Care Team Providers Name Role Phone Lovely Vicente MD Primary Care Provider Encounter Details Date Type Department Care Team Description 09/06/2017 Orders Only Vascular Surgery at [facility] Ninfa Clark, [facility] [place] [address] Social History Tobacco Use Types Packs/Day [...] Zulma Dolan MD [facility] [place] [address] (Wo rk) 05/28/2022 Laboratory Appointment Lab 05/28/2022 Office Visit Cardiology Zulma Dolan MD [facility] [place] [address] Liz Poole PA [facility] [place] [address] 06/10/2022 Office Visit Dermatology Laura Scherer MD [facility] DR [address] [place], [place] [address] (Wo rk) documented as of this encounter Visit Diagnoses Not on filedocumented in this encounter Care Teams Grants Analyst Relationship Specialty Start Date End Date Lovely Vicente MD PCP - General 04/16/[address] [place] [address] documented as of this encounter
--- OUTSIDE RECORDS SUMMARY | 2022-04-10 08:57 | XMS_ITS | Encounter Summary ---
:1945 Author Organization [facility] [place] [address] Care Team Providers Name Role Phone Lovely Vicente MD Primary Care Provider Encounter Details Date Type Department Care Team Description 08/26/2018 Transcribe Orders Laboratory Lovely Vicente, Deferred diagnosis [facility] on axis I [address] [address] [place], [place] [phone] [address] Social History Tobacco Use Types Packs/Day Years [...] Dolan MD [facility] [place], [place] [address] (Wo rk) 05/28/2022 Laboratory Appointment Lab 05/28/2022 Office Visit Cardiology Zulma Dolan MD [facility] [place] [address] Liz Poole PA [facility] [place] [address] 06/10/2022 Office Visit Dermatology Laura Scherer MD [facility] DR [address] [place], [place] [address] (Wo rk) documented as of this encounter Visit Diagnoses Diagnosis Deferred diagnosis on axis I Other unknown and unspecified cause of m orbidity or mortality documented in this encounter Care Teams Implementation Coordinator Relationship Specialty Start Date End Date Lovely Vicente MD PCP - General 04/16/15 [facility] [address] [place] [address] documented as of this encounter
--- OUTSIDE RECORDS SUMMARY | 2022-04-10 08:57 | XMS_ITS | Encounter Summary ---
:1945 Author Organization [facility] [place] [address] Care Team Providers Name Role Phone Lovely iVcente MD Primary Care Provider Encounter Details Date Type Department Care Team Description 01/16/2019 Laboratory Appointment Lab 3L [facility] [place] [phone] Social History Tobacco Use Types Packs/Day Years [...] MD [facility] er [place], [place] [address] (Wo rk) 05/28/2022 Laboratory Appointment Lab 05/28/2022 Office Visit Cardiology Zulma Dolan MD [facility] [place] [address] Liz Poole PA [facility] [place] [address] 06/10/2022 Office Visit Dermatology Laura Scherer MD [facility] ER DR [address] [place], [place] [address] (Wo rk) documented as [...] Organization Address City/State/[place] [address] (ABNORMAL) Basic Metabolic Panel (non-fasting) (01/16/2019 7:49 AM EDT) athologist Signature Glucose Lvl 105 65 - 199 [facility] mg/dL [facility] LABORATORY [...] of body mass or the acutely ill. http://Surveypal/Context Mattersnkf eGFR 79 >=60 mL/min/1.73 m?? [facility] Comment: The eGFR was calculated using the CKD-EP I equation. As with all creatinine based estimates of kidney function, eGFR values calculated with the CKD-EPI equation are not accurate in patients wi th acute kidney failure, extremes of body mass or the acutely ill. http://Surveypal/Context Mattersnkf Specimen Anatomical Collection Method Collection Time Receive d Time (Source) Location / / Volume Laterality Blood specimen 01/16/2019 7:49 AM 019 7:55 (specimen) EDT AM EDT Resulting Agency Comment Spec In Lab Danette Maxwell APRN CHEMISTRY ORDERABLES Performing Organization Address City/State/[place] [address] documented in this encounter Visit Diagnoses Diagnosis Chronic systolic heart failure documented in this encounter Care Teams Head Animal Keeper Relationship Specialty Start Date End Date Lovely Vicente MD PCP - General 04/16/[address] [place] [address] documented as of this encounter
--- OUTSIDE RECORDS SUMMARY | 2022-04-10 08:57 | XMS_ITS | Encounter Summary ---
:1945 Author Organization [facility] [place] [address] Care Team Providers Name Role Phone Lovely Vicente MD Primary Care Provider Reason for Visit Reason Comments Follow-up I'm having trouble with the VAC Encounter Details Date Type Department Care Team Description 08/26/2017 Office Visit Vascular Surgery at [facility], STEPHANIE Mercado Atheroembolism of foot, right; [facility] [address] Delayed surgical wound healing, initial encounter; [facility] VASCULAR SURG YEHUDA Acute on chronic systolic congestive hea rt failure ; [place], [place] [address] [phone] Social History Tobacco Use Types Packs/Day Years [...] home and into the care of the [facility]. However, since [facility] 33.75) performed by Yuan Retana MD at [facility] [...] at [facility] MAIN OR Social Hx: Social History [...] Zulma Dolan MD [facility] [place], [place] [address] (Wo rk) 05/28/2022 Laboratory Appointment Lab 05/28/2022 Office Visit Cardiology Zulma Dolan MD [facility] [place] [address] Liz Poole PA [facility] [place] [address] 06/10/2022 Office Visit Dermatology Laura Scherer MD [facility] [address] [place], [place] [address] (Wo rk) documented as of [...] Component Value Ref Test Analysis Performed At [facility] Range Method Time Signature VB Text Department: Vascular Surgery Lab VASCUBASE Report Patient: [id number] (GREGORY FATIMA) CPT: 65358 ICD10: T81.89XA;I75.021 Referring Physician: ARIK CLEMENT ?? [...] Signature Glucose Lvl 98 65 - 199 [facility] mg/dL [facility] Comment: Diabetes: >=200 mg/dL plus [...] or in patients with acute kidney failure. [email or web address] [email or web address] Specimen Anatomical Collection Method Collection Time Receive d Time (Source) Location / / Volume Laterality Blood specimen 08/26/2017 2:00 PM 018 2:15 (specimen) EST PM EST Resulting Agency Comment Spec In Lab Danette Maxwell DIRECTOR OF DIGITAL MARKETING CHEMISTRY ORDERABLES Performing Organization Address City/[facility]/ZIP Code Phon e Number [address] (ABNORMAL) pro-Brain Natriuretic Peptide (08/26/2017 2:00 PM EST) P athologist Signature ProBNP 2,373 (H) <=125 [facility] pg/mL [facility] Specimen Anatomical Collection Method Collection Time Receive d Time (Source) Location / / Volume Laterality Blood specimen 08/26/2017 2:00 PM 018 2:15 (specimen) EST PM EST Resulting Agency Comment Spec In Lab Danette A Shelton STACIE CHEMISTRY ORDERABLES Performing Organization Address City/[facility] [place] [address] documented in this encounter Visit Diagnoses Diagnosis Atheroembolism of foot, right Delayed surgical wound healing, initial encounter Acute on chronic systolic congestive hea rt failure Acute on chronic systolic heart failure Ischemic cardiomyopathy Other specified forms of chronic ischemi c heart disease documented in this encounter Care Teams Volunteer Services Specialist Relationship Specialty Start Date End Date Lovely Vicente MD PCP - General 04/16/[address] [place] [address] documented as of this encounter
--- OUTSIDE RECORDS SUMMARY | 2022-04-10 08:57 | XMS_ITS | Encounter Summary ---
:1945 Author Organization [facility] [place] [address] Care Team Providers Name Role Phone Lovely Vicente MD Primary Care Provider Encounter Details Date Type Department Care Team Description 10/05/2017 Telephone Cardiology at [facility] Tamiko Sin MD [facility] [place] [address] CARDIOLOGY DEPT [phone] [place], [place] [address] (Wo rk) Social History Tobacco [...] MD [facility] [place] [address] [place] [address] (Wo rk) 05/28/2022 Laboratory Appointment Lab 05/28/2022 Office Visit Cardiology Zulma Dolan MD [facility] [place] [address] Liz Poole PA [facility] [place] [address] 06/10/2022 Office Visit Dermatology Laura Scherer MD [facility] ER [address] [place], [place] [address] (Wo rk) documented as of this encounter Visit Diagnoses Not on filedocumented in this encounter Care Teams Hunting And Fishing Guide Relationship Specialty Start Date End Date Lovely Vicente MD PCP - General 04/16/[address] [place] [address] documented as of this encounter
--- OUTSIDE RECORDS SUMMARY | 2022-04-10 08:57 | XMS_ITS | Encounter Summary ---
:1945 Author Organization [place] [address] Care Team Providers Name Role Phone Lovely Vicente MD Primary Care Provider Reason for Visit Reason Comments Follow-up Skin Check Encounter Details Date Type Department Care Team Description 01/06/2018 Office Visit Dermatology at [facility]; Abdelrahman HOOPER MD History of melanoma; [address] [facility] [place] [address] [facility] [place], [place] [address] Social History Tobacco Use Types [...] Dolan MD [facility] [address] [place], [place] [address] (Wo rk) 05/28/2022 Laboratory Appointment Lab 05/28/2022 Office Visit Cardiology Zulma Dolan MD [facility] [place] [address] Liz Poole PA [facility] [place] [address] 06/10/2022 Office Visit Dermatology Laura Scherer MD [facility] [address] [place], [place] 0[address] (Wo rk) documented as of this encounter Visit Diagnoses Diagnosis Multiple nevi Benign neoplasm of skin, site unspecifie d History of melanoma Personal history of malignant melanoma o f skin Seborrheic keratosis Other seborrheic keratosis documented in this encounter Care Teams Melting Supervisor Relationship Specialty Start Date End Date Lovely Vicente MD PCP - General 04/16/[address] [place] [address] documented as of this encounter
--- OUTSIDE RECORDS SUMMARY | 2022-04-10 08:57 | XMS_ITS | Encounter Summary ---
:1945 Author Organization [place] [address] Care Team Providers Name Role Phone Lovely Vicente MD Primary Care Provider Reason for Referral Consultation (Routine) - Specialty Diagnoses / Procedures Referred By Contact Refer red To Contact [facility] Diagnoses Atheroembolism of foot, right Delayed surgical wound healing, subsequent encounter Aurelia Rivera PA [address] [facility] [place] [address] Referral ID Status Reason Start Date Expiration Date Visits V isits Requested Authorized [id number] Consult, 09/08/2017 03/07/2018 1 1 Test & Treat Reason for Visit Reason Comments Wound Check My foot hurts Encounter Details Date Type Department Care Team Description 09/07/2017 Office Visit Vascular Surgery at MiguelAurelia PA Atheroembolism of foot, right; [facility] [address] Delayed surgical wound healing, subseque nt encounter [facility] [place] [address] [phone] Social History Tobacco Use Types Packs/Day Years [...] at home for VAC dressing changes from [facility]. Since his last visit his right forefoot wound [facility] [...] [facility] MA[facility] OR ??? PRO AMPUTATION FOOT, TRANSMETATARSAL Right 08/09/2017 AMPUTATION, TRANSMETATARSAL (WRVU 12.71) performed by Yonathan Smith MD at [facility] MAIN OR ??? PRO CABG, ARTERIAL, SINGLE N/A 07/07/2017 @CABG, USING ARTERIAL GRAFT;SINGLE ARTERIAL GRAFT (WRVU 33.75) performed by Yuan Retana MD at [facility] MAIN OR ??? PRO CABG, ARTERY-VEIN, TWO N/A 07/07/2017 @CABG, TWO VENOUS GRAFTS & ARTERIAL GRAFT (WRVU 7.93) performed by Yuan Retana MD at [facility] MAIN OR ??? PRO COLONOSCOPY, REMV LESN, SNARE 01/16/2014 COLONOSCOPY, POLYPECTOMY, REMOVAL LESION BY SNARE performed by Nohemi Jaimes MD at [facility] ENDOSCOPY ??? PRO DRESSING CHANGE UNDER ANESTHESIA Right 08/11/2017 (MSURG) DRESSING CHANGE (FOR OTHER THAN IVAN) UNDER ANES. (WRVU 0.86) performed by Lamar Smith MD at [facility] MAIN OR ??? PRO ENDOSCOPY W/VIDEO-ASST VEIN HARVEST, CABG Right 07/07/2017 ENDOSCOPIC HARVEST VEIN(S) FOR CABG (WRVU 0.31) performed by Yuan Retana MD at [facility] MAIN OR ??? PRO THYROIDECTOMY 03/28/2013 THYROIDECTOMY, TOTAL OR COMPLETE performed by Manny Mcknight MD at [facility] OR Social Hx: Social History Substance [...] Zulma Dolan MD [facility] [place], [place] [address] (Wo rk) 05/28/2022 Laboratory Appointment Lab 05/28/2022 Office Visit Cardiology Zulma Dolan MD [facility] [place] [address] Liz Poole PA [facility] [place] [address] 06/10/2022 Office Visit Dermatology Laura Scherer MD [facility] [address] [place], [place] [address] (Wo rk) Scheduled Referrals Name Type Priority Associated Diagnoses Order S chedule Referral to Wound Outpatient Referral Routine Atheroembolism o f foot, Ordered: Clinic right 09/08/2017 Delayed surgical wound healing, subsequent encounter documented as of this encounter Visit Diagnoses Diagnosis Atheroembolism of foot, right Delayed surgical wound healing, subseque nt encounter documented in this encounter Care Teams Fender Mechanic Relationship Specialty Start Date End Date Lovely Vicente MD PCP - General 04/16/[address] [facility] [place] [address] documented as of this encounter
--- OUTSIDE RECORDS SUMMARY | 2022-04-10 08:57 | XMS_ITS | Encounter Summary ---
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 [...] by Dr. Espino On IV antibiotics at [facility] Today: Mr. Fatima is accompanied [...] and bone removal by Dr. Aguero at [facility]. Currently receiving IV antibiotics at [facility] ? Plan: 1. A review [...] Dolan MD [facility] [address] [place], [place] [address] (Wo rk) 05/28/2022 Laboratory Appointment Lab 05/28/2022 Office Visit Cardiology Zulma Dolan MD [facility] [place] [address] Liz Poole PA [facility] [place] [address] 06/10/2022 Office Visit Dermatology Laura Scherer MD [facility] [address] [place], [place] [address] (Wo rk) documented as of this encounter Results (ABNORMAL) Basic Metabolic Panel (non-fasting) (10/07/2017 8:48 AM EDT) athologist Signature Glucose Lvl 99 65 - 199 [facility] mg/dL [facility] Comment: Diabetes: >=200 mg/dL plus symp toms BUN 27 (H) 10 - 20 mg/dL [facility] Creatinine 1.07 0.80 - 1.50 mg/dL [facility] [...] 15 mmol/L [facility] Calcium 8.4 (L) 8.5 - 10.5 mg/dL [facility] Estimated GFR >60 >=60 [facility] Comment: The reported eGFR should be multiplied b y 1.2 for patients. The MDRD is not an appropriate measure o f renal function for patients with body mass extremes or in patients with acute kidney failure. [email or web address]/DHnkdep [email or web address]/DHMCnkf Specimen Anatomical Collection Method Collection Time Receive d Time (Source) Location / / Volume Laterality Blood specimen 10/07/2017 8:48 AM 018 8:50 (specimen) EDT AM EDT Resulting Agency Comment Spec In Lab Danette Maxwell APRN CHEMISTRY ORDERABLES Performing Organization Address City/State/[place] [address] (ABNORMAL) pro-Brain Natriuretic Peptide (10/07/2017 8:48 AM EDT) P athologist Signature ProBNP 1,170 (H) <=125 [facility] pg/mL [facility] Specimen Anatomical Collection Method Collection Time Receive d Time (Source) Location / / Volume Laterality Blood specimen 10/07/2017 8:48 AM 018 8:50 (specimen) EDT AM EDT Resulting Agency Comment Spec In Lab Danette Maxwell APRN CHEMISTRY ORDERABLES Performing Organization Address City/State/[place] [address] documented in this encounter Visit Diagnoses Diagnosis Chronic systolic heart failure S/P CABG x 3 Postsurgical aortocoronary bypass status On amiodarone therapy Atrial fibrillation, unspecified type ASCVD (arteriosclerotic cardiovascular d isease) Unspecified cardiovascular disease documented in this encounter Care Teams Fire Prevention Bureau Captain Relationship Specialty Start Date End Date Lovely Vicente MD PCP - General 04/16/[address] [place] [address] documented as of this encounter
--- OUTSIDE RECORDS SUMMARY | 2022-04-10 08:57 | XMS_ITS | Encounter Summary ---
:1945 Author Organization [facility] [place] [address] Care Team Providers Name Role Phone Lovely Vicente MD Primary Care Provider Encounter Details Date Type Department Care Team Description 08/30/2017 [facility] ischemia [facility] [address] [place] VASCULAR SURGERY [address] [place] [address] [phone] Social History Tobacco Use Types Packs/Day Years [...] Smith MD - 08/30/2017 2:00 PM EST [facility] staff: Patient returns. He is [...] MD [facility] [address] [place], [place] [address] (Wo rk) 05/28/2022 Laboratory Appointment Lab 05/28/2022 Office Visit Cardiology Zulma Dolan MD [facility] [place] [address] Liz Poole PA [facility] [place] [address] 06/10/2022 Office Visit Dermatology Laura Scherer MD [facility] [address] [place], [place] 0[address] (Wo rk) documented as of this encounter Visit Diagnoses Diagnosis Critical lower limb ischemia Unspecified circulatory system disorder documented in this encounter Care Teams Machine Welt Butter Relationship Specialty Start Date End Date Lovely Vicente MD PCP - General 04/16/[address] [place] [address] documented as of this encounter
--- OUTSIDE RECORDS SUMMARY | 2022-04-10 08:57 | XMS_ITS | Encounter Summary ---
:1945 Author Organization [facility] [place] [address] Care Team Providers Name Role Phone Lovely Vicente MD Primary Care Provider Encounter Details Date Type Department Care Team Description 09/03/2017 Telephone Vascular Surgery at [facility] Ninfa Clark, [place] [address] Social History Tobacco Use Types Packs/Day [...] help with the discomfort of the change. Dietary Director told the [facility] that I would ask [...] Zulma Dolan MD [facility] [place], [place] [address] (Wo rk) 05/28/2022 Laboratory Appointment Lab 05/28/2022 Office Visit Cardiology Zulma Dolan MD [facility] [place] [address] Liz Poole PA [facility] [address] 06/10/2022 Office Visit Dermatology Laura Scherer MD [facility] [address] [place], [place] [address] (Wo rk) documented as of this encounter Visit Diagnoses Not on filedocumented in this encounter Care Teams Reception Manager Relationship Specialty Start Date End Date Lovely Vicente MD PCP - General 04/16/[address] [place] [address] [address] [facility] [address] [place] [address] documented as of this encounter
--- OUTSIDE RECORDS SUMMARY | 2022-04-10 08:57 | XMS_ITS | Encounter Summary ---
:1945 Author Organization [facility] [place] [address] Care Team Providers Name Role Phone Lovely Vicente MD Primary Care Provider Encounter Details Date Type Department Care Team Description 09/06/2017 Telephone Vascular Surgery at [facility] Ninfa Clark, [place] [address] Social History Tobacco Use Types Packs/Day [...] Cardiology Zulma Dolan MD [facility] [place], [place] [address] (Wo rk) 05/28/2022 Laboratory Appointment Lab 05/28/2022 Office Visit Cardiology Zulma Dolan MD [facility] [place] [address] Liz Poole PA [facility] [place] [address] 06/10/2022 Office Visit Dermatology Laura Scherer MD [facility] [address] [place], [place] [address] (Wo rk) documented as of this encounter Visit Diagnoses Not on filedocumented in this encounter Care Teams Hide Paster Relationship Specialty Start Date End Date Lovely Vicente MD PCP - General 04/16/[address] [place] [address] documented as of this encounter
--- OUTSIDE RECORDS SUMMARY | 2022-04-10 08:57 | XMS_ITS | Encounter Summary ---
:1945 Author Organization [facility] [place] [address] Care Team Providers Name Role Phone Lovely Vicente MD Primary Care Provider Reason for Referral Diagnostic Test (Routine) - Specialty Diagnoses / Procedures Referred By Contact Refer red To Contact Cardiology Diagnoses Chronic systolic heart failure Danette Maxwell APRN [facility] Non-Inv Card Lab Procedures Echocardiogram Transthoracic(Leb) [facility] [address] [place] [phone] [place] [address] Referral ID Status Reason Start Date Expiration Visits Visits Date Requested Authorized [id number] Specialty 08/15/2018 08/15/2018 1 1 Service Requested Reason for Visit Diagnostic Test (Routine) - Specialty Diagnoses / Procedures Referred By Contact Nawaf owen To Contact Cardiology Diagnoses Chronic systolic heart failure Danette Maxwell APRN [facility] Non-Inv Card Lab Procedures Echocardiogram Transthoracic(Leb) [facility] [place] [address] [place] [address] Referral ID Status Reason Start Date Expiration Visits Visits Date Requested Authorized [id number] Specialty 08/15/2018 08/15/2018 1 1 Service Requested Encounter Details Date Type Department Care Team Description 08/15/2018 Hospital Encounter Non-Invasive Danette Maxwell Chron ic systolic Cardiology Lab Barbara Gomes APRN heart failure [facility] [place] [address] [place], [place] [phone] [address] (Work) [phone] Social History Tobacco Use Types Packs/Day Years [...] Zulma Dolan MD [facility] [place], [place] [address] (Wo rk) 05/28/2022 Laboratory Appointment Lab 05/28/2022 Office Visit Cardiology Zulma Dolan MD [facility] [place] [address] Liz Poole PA [facility] [place] [address] 06/10/2022 Office Visit Dermatology Laura Scherer MD [facility] DR [address] [place], [place] [address] (Wo rk) documented as of [...] Mccollum ? (Age): 1945(73y) Med Rec#: ? [id number] ?Sex: ?M ? Site Loc: ? [facility] ?Ht / Wt: ??172(cm)/81(kg) Pt. Loc: ?Echo Lab ?BSA: ?1.94 Study Date: ?? 08/15/2018 ?Pt. Type: Outpatient Tape: ? Referring: MARY ELLEN Reading: Scott Ortega ([id number]) Branch Services Manager: Laura Sargent Diagnosis: *Chronic systolic (congestive) [...] E-wave Vmax ?1.2 ?m/sec ? MV deceleration ljew779.4 ? msec ? MV A-wave Vmax ?0.7 [...] ? Mid-Inferior ?Hypokinetic ? Mid-Inferoseptal ?Hypokinetic ? [place]-Septal ? Akinetic ? [place]-Anterior ? Hypokinetic ? [place]-Lateral ?Akinetic ? [place]-Inferior ? Hypokinetic ? [place]-Tip ?Akinetic ? This report has been electronically sign ed by: _ Scott Ortega M.D. ? 08/15/2018 08:17:26 Images reviewed and interpretation ver ied [facility] Cardiac Ultrasound Laboratory Procedure Note Scott Ortega MD - 08/15/2018Format ting of this note might be different from the original. Procedure: Transthoracic Echocardiogram Patient: NATALYA MCBRIDE(Age): [birth year]73y) Med Rec#: [id number] Sex: M Site Loc: [facility] Ht / Wt: 172(cm)/81(kg) Pt. Loc: Echo Lab BSA: 1.94 Study Date: 08/15/2018 Pt. Type: Outpati ent Tape: Referring: MARY ELLEN Reading: Scott Ortega ([id number]) Branch Services Manager: Laura Sargent Diagnosis: *Chronic systolic (congestive) [...] MV E-wave Vmax 1.2 m/sec MV deceleration cspy146.4 msec MV A-wave Vmax 0.7 m/sec MV [...] Akinetic Mid-Posterolateral Akinetic Mid-Inferior Hypokinetic Mid-Inferoseptal Hypokinetic [place]-Septal Akinetic [place]-Anterior Hypokinetic [place]-Lateral Akinetic [place]-Inferior Hypokinetic [place]-Tip Akinetic This report has been electronically sign ed by: _ Scott Ortega M.D. 08/15/2018 08:17: 26 Images reviewed and interpretation verif ied [facility] Cardiac Ultrasound Laboratory Danette A Hans MODEL HOME SALES GREETER ECHO ORDERABLES documented in this encounter Visit [...] Routine documented in this encounter Care Teams Prop Attendant Relationship Specialty Start Date End Date Lovely Vicente MD PCP - General 04/16/[address] [place] [address] documented as of this encounter
--- OUTSIDE RECORDS SUMMARY | 2022-04-10 08:57 | XMS_ITS | Encounter Summary ---
:1945 [place] [address] Care Team Providers Name Role Phone Lovely Vicente MD Primary Care Provider Encounter Details Date Type Department Care Team Description 08/15/2018 Laboratory Appointment Lab 3L [facility] [place] [address] Social History Tobacco Use Types Packs/Day [...] Zulma Dolan MD [facility] [place], [place] [address] (Wo rk) 05/28/2022 Laboratory Appointment Lab 05/28/2022 Office Visit Cardiology [place]ulma [place] [address] Liz Poole PA [facility] [place] [address] 06/10/2022 Office Visit Dermatology Laura Scherer MD [facility] ER [address]DERMAT [place], [place] 0[address] (Wo rk) documented as [...] 12.5 [facility] LABORATORY INR 2.1 [facility] Comment: An INR [...] City/State/ZIP [place] [address] documented in this encounter Visit Diagnoses Not on filedocumented in this encounter Care Teams Shirt Turner Relationship Specialty Start Date End Date Lovely Vicente MD PCP - General 04/16/[address] [place] [address] documented as of this encounter
--- OUTSIDE RECORDS SUMMARY | 2022-04-10 08:57 | XMS_ITS | Encounter Summary ---
:1945 Author Organization [facility] [place] [address] Care Team Providers Name Role Phone Lovely Vicente MD Primary Care Provider Encounter Details Date Type Department Care Team Description 08/15/2018 Laboratory Lab 3L [place]ina Chronic systoli c heart failure; Appointment [facility] ASCVD (ar teriosclerotic cardiovascular disease) [place] [address] Social History Tobacco Use Types [...] MD [facility] [place], [place] [address] (Wo rk) 05/28/2022 Laboratory Appointment Lab 05/28/2022 Office Visit Cardiology Zulma Dolan MD [facility] [place] [address] [facility] [place] [address] 06/10/2022 Office Visit Dermatology Laura Scherer MD [facility] ER [address] TE[address] [place], [place] [address] (Wo rk) documented as [...] Signature Glucose Lvl 116 65 - 199 [facility] mg/dL [facility] Comment: Diabetes: >=200 mg/dL plus symp toms BUN 21 (H) 10 - 20 mg/dL [facility] Creatinine 1.08 0.80 - 1.50 mg/dL [facility] 15 mmol/L [facility] Calcium 9.0 8.5 - 10.5 [...] of body mass or the acutely ill. http://Carebase/[facility]kf eGFR 79 >=60 mL/min/1.73 m?? [facility] Comment: The eGFR was calculated using the CKD-EP I equation. As with all creatinine based estimates of kidney function, eGFR values calculated with the CKD-EPI equation are not accurate in patients wi th acute kidney failure, extremes of body mass or the acutely ill. http://Carebase/[facility]kf Specimen Anatomical Collection Method Collection Time Receive d Time (Source) Location / / Volume Laterality Blood specimen 08/15/2018 8:04 AM 019 8:20 (specimen) EST AM EST Resulting Agency Comment Spec In Lab Danette Maxwell APRN CHEMISTRY ORDERABLES Performing Organization Address City/State/[place] [address] Lipid Panel (08/15/2018 8:04 AM EST) P athologist Signature Chol, Total 75 mg/dL [facility] Comment: Lower Risk: <200 mg/dL Average Risk: 200-239 mg/dL Higher Risk: >vv=698 mg/dL Triglycerides 185 mg/dL [facility] Comment: Average Risk/Lower Risk: <150 mg/dL Borderline High Risk: 150-199 mg/dL High Risk: 200-499 mg/dL Very High Risk: >zi=235 mg/dL HDL 32 mg/dL [facility] Comment: Males: ?? Higher Risk: <40 mg/dL Females: ?? HIgher Risk: <50 mg/dL LDL Cholesterol 6 mg/dL [facility] Comment: Lowest Risk: <100 mg/dL Lower Risk: 100-129 mg/dL Borderline High Risk: 130-159 mg/dL High Risk: 160-189 mg/dL Very High Risk: >xs=662 mg/dL Chol/HDL Ratio 2.3 ratio [facility] Lipid Interpretation See Note [facility] Comment: Lipid management should be guided by a p atient? s ASCVD risk, goals and preferences. ACC/AHA Guidelines recommend high intens ity statin if clinical ASCVD or LDL greater than or equal to 190 mg/dL. http://QuantHouse.com/XJA-XSG-Suqvigbpr Adults aged 40-75 with LDL 70-189 mg/dL should have their 10 year ASCVD risk estimated with the ACC/AHA ASCVD risk es timator http://tools.acc.org/PXZTC-Ovwx-Pmcycvej r/ Statin should be discussed if risk [...] Address City/State/[place] [address] (ABNORMAL) pro-Brain Natriuretic Peptide (08/15/2018 8:04 AM EST) athologist Signature ProBNP 1,797 (H) <=125 [facility] pg[facility] Specimen Anatomical Collection Method Collection Time Receive d Time (Source) Location / / Volume Laterality Blood specimen 08/15/2018 8:04 AM 019 8:20 (specimen) EST AM EST Resulting Agency Comment Spec In Lab Danette Maxwell APRN CHEMISTRY ORDERABLES Performing Organization Address City/State/[place] [address] documented in this encounter Visit Diagnoses Diagnosis Chronic systolic heart failure ASCVD (arteriosclerotic cardiovascular d isease) Unspecified cardiovascular disease documented in this encounter Care Teams Business Management Intern Relationship Specialty Start Date End Date Lovely Vicente MD PCP - General 04/16/[address] [place] [address] documented as of this encounter
--- OUTSIDE RECORDS SUMMARY | 2022-04-10 08:57 | XMS_ITS | Encounter Summary ---
:1945 [place] [address] Care Team Providers Name Role Phone Lovely Vicente MD Primary Care Provider Encounter Details Date Type Department Care Team Description 11/29/2017 Hospital Encounter Radiology Library at Estefany Maxwell Pain [facility] [place] [address] CARDIOLOGY [phone] [place], [place] [address] (Wo rk) Social History Tobacco [...] Cardiology Zulma Dolan MD [facility] [place], [place] [address] (Wo rk) 05/28/2022 Laboratory Appointment Lab 05/28/2022 Office Visit Cardiology Zulma Dolan [place] [address] Liz Poole PA [facility] [place] [address] 06/10/2022 Office Visit Dermatology Laura Scherer MD [facility] DR [address] [place] [place], [place] [address] (Wo rk) documented as of [...] Code Phon e Number [place], [place] documented in this encounter Visit Diagnoses Diagnosis Pain Generalized pain documented in this encounter Care Teams Superintendent Colliery Relationship Specialty Start Date End Date Lovely Vicente MD PCP - General 04/16/[address] [place] [address] documented as of this encounter
--- OUTSIDE RECORDS SUMMARY | 2022-04-10 08:58 | XMS_ITS | Encounter Summary ---
:1945 Author Organization [facility] [place] [address] Care Team Providers Name Role Phone Lovely Vicente MD Primary Care Provider Encounter Details Date Type Department Care Team Description 08/19/2017 Hospital Encounter XRay [place] [facility] Martha Teague, S/P CABG x [address] [facility] [place] [address] [place] [address] RD [phone] [facility] [place], [place] [address] (Wo rk) Social History [...] Cardiology Zulma Dolan MD [facility] [place], [place] [address] (Wo rk) 05/28/2022 Laboratory Appointment Lab 05/28/2022 Office Visit Cardiology Zulma Dolan MD [facility] [place] [place] [address] Liz Poole PA [facility] [place] [address] 06/10/2022 Office Visit Dermatology Laura Scherer MD [facility] [address] [place], [place] [address] (Wo rk) documented as [...] 2017 EXAMINATION: XR CHEST PA AND LATERAL (IsmoleIC) CLINICAL HISTORY: CABG x 3 TECHNIQUE: PA [...] status documented in this encounter Care Teams Wire Setter Relationship Specialty Start Date End Date Lovely Vicente MD PCP - General 04/16/[address] [place], [place] [address]Y [facility] [address] [place] [address] documented as of this encounter
--- OUTSIDE RECORDS SUMMARY | 2022-04-10 08:58 | XMS_ITS | Encounter Summary ---
:1945 Author Organization [facility] [place] [address] Care Team Providers Name Role Phone Lovely Vicente MD Primary Care Provider Reason for Referral Diagnostic Test (Routine) - Closed Specialty Diagnoses / Procedures Referred By Contact Refer red To Contact Cardiology Diagnoses Ischemic cardiomyopathy Acute on chronic systolic congestive heart failure Danette Maxwell APRN [facility] Non-Inv Card Lab Procedures Echocardiogram Transthoracic(Leb) [facility] [place] [address] [place] [address] Referral ID Status Reason Start Date Expiration Date Visits V isits Requested Authorized [id number] Closed Specialty 08/30/2017 08/30/2018 1 1 Service Requested Encounter Details Date Type Department Care Team Description 08/26/2017 [place] [facility] Danette Maxwell Ischemic cardiomyopathy; [facility] STACIE Gomes Acute on chronic systolic congestive hea rt failure ; Drive [facility] ASCVD (arteriosclerotic card iovascular disease); [place], [place] PAF (paroxysmal atrial fibrillation); [phone] CARDIOLOGY PAD (peripheral artery disease) [phone] [place], [place] [address] Social History Tobacco Use Types Packs/Day Years [...] painful 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 [...] Zulma Dolan MD [facility] [place], [place] [address] (Wo rk) 05/28/2022 Laboratory Appointment Lab 05/28/2022 Office Visit Cardiology Zulma Dolan MD [facility] [place] [address] Liz Poole PA [facility] [place] [address] 06/10/2022 Office Visit Dermatology Laura Scherer MD [facility] DR [address] [place], [place] [address] (Wo rk) documented as of this encounter Results ECHOCARDIOGRAM COMPLETE W CONTRAST (10/07/2017 10:23 AM EDT) athologist Signature EF 45 [facility] Anatomical Region Laterality Modality Other Specimen (Source) Anatomical Location Collection Method / Collectio n Time Received Time / Laterality Volume 10/07/2017 Narrative 10/07/2017 11:13 AM EDT Procedure: ?Transthoracic Echocardiogram Patient: ?NATALYA Mccollum ? (Age): 1945(72y) Med Rec#: ? [id number] ?Sex: ?M ? [place] ? [facility] ?Ht / Wt: ??173(cm)/82(kg) Pt. Loc: ?Echo Lab ?BSA: ?1.96 Study Date: ?? 10/07/2017 ?Pt. Type: Outpatient Tape: ? Referring: Danette Maxwell Reading: Iker Cuevas ([id number]) Silo Tender: Yonathan Bocanegra Diagnosis: *ICD-10-PCS Ischemic cardiomyopathy (I2 [...] E-wave Vmax ?1.2 ?m/sec ? MV deceleration [id number] ?msec ? MV A-wave Vmax ?1 ?m/sec [...] ? Mid-Inferior ?Hypokinetic ? Mid-Inferoseptal ?Hypokinetic ? Dawn-Septal ? Akinetic ? Dawn-Anterior ? Hypokinetic ? Dawn-Lateral ?Hypokinetic ? Dawn-Inferior ? Hypokinetic ? Dawn-Tip ?Akinetic ? This report has been electronically sign ed by: _ Iker Cuevas M.D. ? 10/07/2017 11:12:34 Images reviewed and interpretation [facility] Cardiac Ultrasound Laboratory Procedure Note Iker Cuevas MD - 10/07/2017Formatti ng of this note might be different from the original. Procedure: Transthoracic Echocardiogram Patient: NATALYA Mccollum (Age): [birth year]72y) Med Rec#: [id number] Sex: M [place] [facility] [place] Ht / Wt: 173(cm)/82(kg) Pt. Loc: Echo Lab BSA: 1.96 Study Date: 10/07/2017 Pt. Type: Outpati ent Tape: Referring: Danette Maxwell Reading: Iker Cuevas ([id number]) Silo Tender: Yonathan Bocanegra Diagnosis: *ICD-10-PCS Ischemic cardiomyopathy (I2 [...] MV E-wave Vmax 1.2 m/sec MV deceleration [id number] msec MV A-wave Vmax 1 m/sec MV [...] Akinetic Mid-Posterolateral Hypokinetic Mid-Inferior Hypokinetic Mid-Inferoseptal Hypokinetic Dawn-Septal Akinetic Dawn-Anterior Hypokinetic Dawn-Lateral Hypokinetic Dawn-Inferior Hypokinetic Dawn-Tip Akinetic This report has been electronically sign ed by: _ Iker Cuevas M.D. 10/07/2017 11:12 :34 Images reviewed and interpretation [facility] Cardiac Ultrasound Laboratory Danette Maxwell APRN ECHO ORDERABLES Basic Metabolic Panel (non-fasting) (08/26/2017 2:00 PM EST) P athologist Signature Glucose Lvl 98 65 - 199 [facility] mg/dL [facility] Comment: Diabetes: >=200 mg/dL plus symp toms BUN 20 10 - 20 mg/dL [facility] Creatinine 1.17 0.80 - 1.50 [...] 15 mmol/L [facility] Calcium 9.1 8.5 - 10.5 mg/dL [facility] Estimated GFR >60 >=60 [facility] Comment: The reported eGFR should be multiplied b y 1.2 for patients. The MDRD is not an appropriate measure o f renal function for patients with body mass extremes or in patients with acute kidney failure. http://Game9z/DHnkdep http://Game9z/DHMCnkf Specimen Anatomical Collection Method Collection Time Receive d Time (Source) Location / / Volume Laterality Blood specimen 08/26/2017 2:00 PM 018 2:15 (specimen) EST PM EST Resulting Agency Comment Spec In Lab Danette Maxwell APRN CHEMISTRY ORDERABLES Performing Organization Address City/State/ZIP Code Phon e Number [address] (ABNORMAL) pro-Brain Natriuretic Peptide (08/26/2017 2:00 PM EST) P athologist Signature ProBNP 2,373 (H) <=125 [facility] RYAN pg/mL [facility] Specimen Anatomical Collection Method Collection Time Receive d Time (Source) Location / / Volume Laterality Blood specimen 08/26/2017 2:00 PM 018 2:15 (specimen) EST PM EST Resulting Agency Comment Spec In Lab Danette Maxwell APRN CHEMISTRY ORDERABLES Performing Organization Address City/State/[place] [address] documented in this encounter [...] failure documented in this encounter Care Teams Television Parts Tester Relationship Specialty Start Date End Date Lovely Vicente MD PCP - General 04/16/15 [address] [place] [address] documented as of this encounter
--- OUTSIDE RECORDS SUMMARY | 2022-04-10 08:58 | XMS_ITS | Encounter Summary ---
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 12:12 AM EST) athologist Signature POC Glucose 89 65 - 199 [facility] mg/dL [facility] LABORATORY Comment: Supplemental [...] City/State/[place] [address] (ABNORMAL) POCT Glucose (08/14/2017 8:07 PM EST) athologist Signature POC Glucose 204 (H) 65 - 199 [place] mg/dL [facility] LABORATORY Comment: Supplemental [...] City/State/Z[place] [address] POCT Glucose (08/14/2017 5:11 PM EST) athologist Signature POC Glucose 174 65 - 199 [place] [facility] mg/dL [facility] LABORATORY Comment: Supplemental [...] City/State/[place] [address] POCT Glucose (08/14/2017 12:10 PM EST) athologist Signature POC Glucose 141 65 - 199 [place] mg/dL [facility] LABORATORY Comment: Supplemental [...] Address City/State/ZIP Code Phon e Number [address] POCT Glucose (08/14/2017 8:07 AM EST) P athologist Signature POC Glucose 158 65 - 199 [facility] mg/dL [facility] LABORATORY Comment: Supplemental [...] City/State/[place] [address] (ABNORMAL) Differential, Automated (08/14/2017 4:52 AM EST) Patholo gist Method Time Signature Neutrophils % 78.6 % [facility] LABORATORY Neutr Abs (ANC) 7.70 (H) 1.70 - [facility] 6.10 [facility] x10(3)/[facility] L LABORATORY Lymphocytes % 7.8 % [facility] LABORATORY Lymphocytes Abs 0.8 (L) 0.9 - 3.2 [facility] x10(3)/[facility] LABORATORY Monocytes % 8.8 % [facility] LABORATORY Monocyte Abs 0.9 0.3 - 0.9 [facility] x10(3)/[facility] LABORATORY Eosinophils % 4.0 % [facility] LABORATORY Eosinophils Abs 0.4 0.0 - 0.4 [facility] x10(3)/[facility] LABORATORY Basophils % 0.5 % [facility] LABORATORY Basophils Abs 0.0 0.0 - 0.1 [facility] x10(3)/[facility] LABORATORY Immature Gran % 0.30 % [...] - 0.04 x10(3)/[facility] LABORATORY Specimen Anatomical Collection Method Collection Time Receive d Time (Source) Location / / Volume Laterality Blood specimen 08/14/2017 4:52 AM 018 5:08 (specimen) EST AM EST Resulting Agency Comment Spec In Lab Yonathan Smith MD HEMATOLOGY ORDERABLES Performing Organization Address City/State/Z[place] [address] (ABNORMAL) Hemogram (08/14/2017 4:52 AM EST) Analysis Performed At Patho logist Time Signature WBC 9.8 (H) 4.0 - 9.5 [facility] x10(3)/[facility] LABORATORY RBC 3.32 (L) 4.58 - [facility] 5.54 [facility] x10(6)/[facility] LABORATORY Hemoglobin 9.5 (L) 13.7 - [facility] 16.[facility] gm/dL [facility] LABORATORY Hematocrit 30.3 (L) 40.5 - [facility] 48.5 % [facility] LABORATORY MCV 91.3 82.9 - [facility] 93.1 [facility] LABORATORY MCH 28.6 27.5 - [place] [facility] 32.1 pg [facility] LABORATORY MCHC 31.4 (L) 32.0 - [facility] 35.7 gm/dL [facility] LABORATORY Platelets 263 145 - 357 [facility] x10(3)/[facility] LABORATORY RDWSD 54.8 (H) 36.0 - [facility] 45.0 [facility] RDWCV 16.5 (H) 11.4 - [facility] 13.8 % [facility] LABORATORY MPV 9.1 7.6 - 12.9 [facility] LABORATORY nRBC % Auto 0.0 % [facility] LABORATORY nRBC Abs Auto 0.000 0.000 - [facility] 0.000 [facility] x10(3)/[facility] LABORATORY Specimen Anatomical Collection Method Collection Time Receive d Time (Source) Location / / Volume Laterality Blood specimen 08/14/2017 4:52 AM 018 5:08 (specimen) EST AM EST Resulting Agency Comment Spec In Lab Yonathan Smith MD HEMATOLOGY ORDERABLES Performing Organization Address City/[facility]/Z[place] [address] (ABNORMAL) Prothrombin Time (08/14/2017 [...] Organization Address City/State/[place] [address] (ABNORMAL) Basic Metabolic Panel (non-fasting) (08/14/2017 4:52 AM EST) athologist Signature Glucose Lvl 135 65 - 199 [facility] mg/dL [facility] LABORATORY Comment: Diabetes: [...] or in patients with acute kidney failure. [email or web address] [email or web address]/DHMCnkf Specimen Anatomical Collection Method Collection Time Receive d Time (Source) Location / / Volume Laterality Blood specimen 08/14/2017 4:52 AM 018 5:08 (specimen) EST AM EST Resulting Agency Comment Spec In Lab Yonathan Smith MD CHEMISTRY ORDERABLES Performing Organization Address City/State/Z[place] [address] POCT Glucose (08/14/2017 3:56 AM EST) P athologist Signature POC Glucose 135 65 - 199 [facility] mg/dL [facility] LABORATORY Comment: Supplemental [...] Address City/State/ZIP [place] [address] POCT Glucose (08/13/2017 11:13 PM EST) athologist Signature POC Glucose 118 65 - 199 [place] mg/dL [facility] LABORATORY Comment: Supplemental [...] [facility]/ZIP [place] [address] (ABNORMAL) POCT Glucose (08/13/2017 8:08 PM EST) athologist Signature POC Glucose 204 (H) 65 - 199 [place] mg/dL [facility] LABORATORY Comment: Supplemental [...] [facility]/ZIP Code [place] [address] POCT Glucose (08/13/2017 4:02 PM EST) athologist Signature POC Glucose 145 65 - 199 [facility] mg/dL [facility] LABORATORY Comment: Supplemental [...] City/State/Z[place] [address] POCT Glucose (08/13/2017 11:31 AM EST) P athologist Signature POC Glucose 179 65 - 199 [facility] mg/dL [facility] LABORATORY Comment: Supplemental [...] [facility]/[place] [address] (ABNORMAL) POCT Glucose (08/13/2017 10:16 AM EST) athologist Signature POC Glucose 211 (H) 65 - 199 [facility] mg/dL [facility] LABORATORY Comment: Supplemental [...] [facility]/ZIP Code Phon e Number [address] JULIAN, legs, multiple levels (08/13/2017 7:42 AM EST) Component Value Ref Test Analysis Performed At Patholo gist Range Method Time Signature VB Text Department: Vascular Surgery Lab VASCUBASE Report Patient: [id number] (GREGORY HOANG) CPT: 50165 ICD10: I99.8 Referring Physician: YONATHAN SMITH ?? Indications: s/p R 1,2,3 toe amps with red left foot, need n ew baseline Diabetes mellitus: yes ICD10 Diagnosis Code: I99.8 Findings: Right ?Pressure (mm Hg) ?? JULIAN ??Waveform ?TBI ?? Brachial Artery ?138 ? Dorsalis Pedis (Ankle) Arter y ?132 ? 0.94 ??Crockett- Biphasic ? Posterior Tibial (Ankle) Art anila ??154 ? 1.10 ??Crockett-Biphasic ? Fourth Toe ? 67 ? 0.48 [...] 156 65 - 199 [facility] mg/dL [facility] LABORATORY Comment: Supplemental [...] City/State/[place] [address] (ABNORMAL) Differential, Automated (08/13/2017 5:33 AM EST) [facility] Method Time Signature Neutrophils % 77.8 % [facility] LABORATORY Neutr Abs (ANC) 7.83 (H) 1.70 - [facility] 6.10 [facility] x10(3)/[facility] L LABORATORY Lymphocytes % 8.4 % [facility] LABORATORY Lymphocytes Abs 0.8 (L) 0.9 - 3.2 [facility] x10(3)/[facility] LABORATORY Monocytes % 8.3 % [facility] LABORATORY Monocyte Abs 0.8 0.3 - 0.9 [facility] x10(3)/[facility] LABORATORY Eosinophils % 4.6 % [facility] LABORATORY Eosinophils Abs 0.5 (H) 0.0 - 0.4 [facility] x10(3)/[facility] LABORATORY Basophils % 0.5 % [facility] LABORATORY Basophils Abs 0.0 0.0 - 0.1 [facility] x10(3)/[facility] LABORATORY Immature Gran % 0.40 % [...] 0.04 0.00 - 0.04 x10(3)/[facility] LABORATORY Specimen Anatomical Collection Method Collection Time Receive d Time (Source) Location / / Volume Laterality Blood specimen 08/13/2017 5:33 AM 018 6:04 (specimen) EST AM EST Resulting Agency Comment Spec In Lab Yonathan Smith MD HEMATOLOGY ORDERABLES Performing Organization Address City/State/ZIP Code Phon e Number [address] (ABNORMAL) Hemogram (08/13/2017 5:33 AM EST) Analysis Performed At Patho logist Time Signature WBC 10.1 (H) 4.0 - 9.5 [facility] x10(3)/[facility] LABORATORY RBC 3.21 (L) 4.58 - [facility] 5.54 [facility] x10(6)/[facility] LABORATORY Hemoglobin 9.2 (L) 13.7 - [facility] 16.5 gm/dL [facility] LABORATORY Hematocrit 29.6 (L) 40.5 - [facility] 48.5 % [facility] LABORATORY MCV 92.2 82.9 - [facility] 93.1 [facility] LABORATORY MCH 28.7 27.5 - [facility] 32.1 pg [facility] LABORATORY MCHC 31.1 (L) 32.0 - [facility] gm/dL [facility] LABORATORY Platelets 263 145 - 357 [facility] x10(3)/[facility] LABORATORY RDWSD 54.8 (H) 36.0 - [facility] 45.0 [facility] LABORATORY RDWCV 16.4 (H) 11.4 - [facility] 13.8 % [facility] LABORATORY MPV 9.2 7.6 - 12.9 [facility] LABORATORY nRBC % Auto 0.0 % [facility] LABORATORY nRBC Abs Auto 0.000 0.000 - [facility] 0.000 [facility] x10(3)/[facility] LABORATORY Specimen Anatomical Collection Method Collection Time Receive d Time (Source) Location / / Volume Laterality Blood specimen 08/13/2017 5:33 AM 018 6:04 (specimen) EST AM EST Resulting Agency Comment Spec In Lab Yonathan Smith MD HEMATOLOGY ORDERABLES Performing Organization Address City/State/[place] [address] (ABNORMAL) Prothrombin Time (08/13/2017 [...] City/State/ZIP Code Phon e Number [place] [id number]OS[address] LAB[address]ORY [address] (ABNORMAL) Basic Metabolic Panel (non-fasting) (08/13/2017 5:33 AM EST) athologist Signature Glucose Lvl 126 65 - 199 [facility] mg/dL [facility] LABORATORY Comment: Diabetes: [...] or in patients with acute kidney failure. http://[email or web address] [email or web address]/DHMCnkf Specimen Anatomical Collection Method Collection Time Receive d Time (Source) Location / / Volume Laterality Blood specimen 08/13/2017 5:33 AM 018 6:04 (specimen) EST AM EST Resulting Agency Comment Spec In Lab Yonathan Smith MD CHEMISTRY ORDERABLES Performing Organization Address City/[facility]/ZIP [facility] Phon e Number [address] POCT Glucose (08/13/2017 4:29 AM EST) athologist Signature POC Glucose 111 65 - 199 [facility] mg/dL [facility] LABORATORY Comment: Supplemental [...] [facility]/ZIP Code Phon e Number [address] POCT Glucose (08/12/2017 11:28 PM EST) athologist Signature POC Glucose 164 65 - 199 [facility] mg/dL [facility] LABORATORY Comment: Supplemental [...] [facility]/[place] [address] (ABNORMAL) POCT Glucose (08/12/2017 7:40 PM EST) athologist Signature POC Glucose 209 (H) 65 - 199 [facility] mg/dL [facility] LABORATORY Comment: Supplemental [...] Address City/State/ZIP Code Phon e Number [address] POCT Glucose (08/12/2017 4:24 PM EST) athologist Signature POC Glucose 161 65 - 199 [facility] mg/dL [facility] LABORATORY Comment: Supplemental [...] City/State/Z[place] [address] POCT Glucose (08/12/2017 12:00 PM EST) athologist Signature POC Glucose 167 65 - 199 [place] [facility] mg/dL [facility] LABORATORY Comment: Supplemental [...] City/State/Z[place] [address] POCT Glucose (08/12/2017 7:25 AM EST) P athologist Signature POC Glucose 152 65 - 199 [facility] mg/dL [facility] LABORATORY Comment: Supplemental ranges: <140 mg/dL before meals <180 mg/dL all other times of the day Specimen Anatomical Collection Method Collection Time Receive d Time (Source) Location / / Volume Laterality Blood specimen 08/12/2017 7:25 AM 018 7:25 (specimen) EST AM EST Yonathan Smith MD POINT OF CARE TEST ORDERABLE S Performing Organization Address City/State/Z[place] [address] (ABNORMAL) Differential, Automated (08/12/2017 6:29 AM EST) Patholo gist Method Time Signature Neutrophils % 78.7 % [facility] LABORATORY Neutr Abs (ANC) 7.94 (H) 1.70 - [facility] 6.10 [facility] x10(3)/[facility] LABORATORY Lymphocytes % 8.8 % [facility] LABORATORY Lymphocytes Abs 0.9 0.9 - 3.2 [facility] x10(3)/[facility] LABORATORY Monocytes % 7.8 % [facility] LABORATORY Monocyte Abs 0.8 0.3 - 0.9 [facility] x10(3)/[facility] LABORATORY Eosinophils % 3.9 % [facility] LABORATORY Eosinophils Abs 0.4 0.0 - 0.4 [facility] x10(3)/[facility] LABORATORY Basophils % 0.3 % [facility] LABORATORY Basophils Abs 0.0 0.0 - 0.1 [facility] x10(3)/[facility] LABORATORY Immature Gran % 0.50 % [...] Organization Address City/State/Z[place] [address] (ABNORMAL) Hemogram (08/12/2017 6:29 AM EST) Analysis Performed At Patho logist Time Signature WBC 10.1 (H) 4.0 - 9.5 [facility] x10(3)/[facility] LABORATORY RBC 3.02 (L) 4.58 - [facility] 5.54 [facility] x10(6)/[facility] LABORATORY Hemoglobin 8.7 (L) 13.7 - [facility] 16.5 gm/dL [facility] LABORATORY Hematocrit 28.1 (L) 40.5 - [facility] 48.5 % [facility] LABORATORY MCV 93.0 82.9 - [facility] 93.1 [facility] LABORATORY MCH 28.8 27.5 - [facility] 32.1 pg [facility] LABORATORY MCHC 31.0 (L) 32.0 - [facility] 35.7 gm/dL [facility] LABORATORY Platelets 223 145 - 357 [facility] x10(3)/[facility] LABORATORY RDWSD 56.1 (H) 36.0 - [facility] 45.0 [facility] LABORATORY RDWCV 16.4 (H) 11.4 - [facility] 13.8 % [facility] LABORATORY MPV 9.0 7.6 - 12.9 [facility] LABORATORY nRBC % Auto 0.0 % [facility] LABORATORY nRBC Abs Auto 0.000 0.000 - [facility] 0.000 [facility] x10(3)/[facility] LABORATORY Specimen Anatomical Collection Method Collection Time Receive d Time (Source) Location / / Volume Laterality Blood specimen 08/12/2017 6:29 AM 018 6:38 (specimen) EST AM EST Resulting Agency Comment Spec In Lab Yonathan Smith MD HEMATOLOGY ORDERABLES Performing Organization Address City/[facility]/[place] [address] (ABNORMAL) Prothrombin Time (08/12/2017 [...] [facility] [address] (ABNORMAL) Basic Metabolic Panel (non-fasting) (08/12/2017 6:29 AM EST) athologist Signature Glucose Lvl 151 65 - 199 [facility] mg/dL [facility] LABORATORY Comment: Diabetes: [...] or in patients with acute kidney failure. http://[employer]/DHnkdep http://[employer] [place]/DHMCnkf Specimen Anatomical Collection Method Collection Time Receive d Time (Source) Location / / Volume Laterality Blood specimen 08/12/2017 6:29 AM 018 6:38 (specimen) EST AM EST Resulting Agency Comment Spec In Lab Yonathan Smith MD CHEMISTRY ORDERABLES Performing Organization Address City/[facility]/ZIP Code Phon e Number [address] POCT Glucose (08/12/2017 4:08 AM EST) athologist Signature POC Glucose 181 65 - 199 [facility] LABORATORY Comment: Supplemental [...] [facility]/[place] [address] (ABNORMAL) POCT Glucose (08/12/2017 12:17 AM EST) athologist Signature POC Glucose 221 (H) 65 - 199 [facility] mg/dL [facility] LABORATORY Comment: Supplemental [...] City/State/[place] [address] (ABNORMAL) POCT Glucose (08/11/2017 8:52 PM EST) athologist Signature POC Glucose 221 (H) 65 - 199 [place] mg/dL [facility] LABORATORY Comment: Supplemental [...] [facility]/ZIP [place] [address] POCT Glucose (08/11/2017 5:59 PM EST) athologist Signature POC Glucose 169 65 - 199 [place] [facility] mg/dL [facility] LABORATORY Comment: Supplemental [...] City/State/[place] [address] (ABNORMAL) POCT Glucose (08/11/2017 4:08 PM EST) athologist Signature POC Glucose 240 (H) 65 - 199 [place] [facility] mg/dL [facility] LABORATORY Comment: Supplemental [...] Address City/State/ZIP Code Phon e Number [address] POCT Glucose (08/11/2017 12:04 PM EST) athologist Signature POC Glucose 182 65 - 199 [facility] mg/dL [facility] LABORATORY Comment: Supplemental [...] [facility]/Z[place] [address] POCT Glucose (08/11/2017 7:31 AM EST) athologist Signature POC Glucose 156 65 - 199 [facility] mg/dL [facility] LABORATORY Comment: Supplemental [...] Address City/State/ZIP Code Phon e Number [address] (ABNORMAL) Differential, Automated (08/11/2017 6:16 AM EST) [facility] gist Method Time Signature Neutrophils % 83.7 % [facility] LABORATORY Neutr Abs (ANC) 10.76 (H) 1.70 - [facility] 6.10 [facility] x10(3)/[facility] L LABORATORY Lymphocytes % 6.0 % [facility] LABORATORY Lymphocytes Abs 0.8 (L) 0.9 - 3.2 [facility] x10(3)/[facility] LABORATORY Monocytes % 7.5 % [facility] LABORATORY Monocyte Abs 1.0 (H) 0.3 - 0.9 [facility] x10(3)/[facility] LABORATORY Eosinophils % 2.0 % [facility] LABORATORY Eosinophils Abs 0.3 0.0 - 0.4 [facility] x10(3)/[facility] LABORATORY Basophils % 0.3 % [facility] LABORATORY Basophils Abs 0.0 0.0 - 0.1 [facility] x10(3)/[facility] LABORATORY Immature Gran % 0.50 % [...] Organization Address City/State/ZIP Code Phon e Number [place], [place] [address] (ABNORMAL) Hemogram (08/11/2017 6:16 AM EST) Analysis Performed At Patho logist Time Signature WBC 12.9 (H) 4.0 - 9.5 [facility] x10(3)/[facility] LABORATORY RBC 3.28 (L) 4.58 - [facility] 5.54 [facility] x10(6)/[facility] LABORATORY Hemoglobin 9.5 (L) 13.7 - [facility] 16.5 gm/dL [facility] LABORATORY Hematocrit 29.8 (L) 40.5 - [place] SU 48.5 % [facility] LABORATORY MCV 90.9 82.9 - [facility] 93.1 [facility] LABORATORY MCH 29.0 27.5 - [place] DAVIS 32.1 [facility] LABORATORY MCHC 31.9 (L) 32.0 - [place] DAVIS 35.7 gm/dL [facility] Platelets 236 145 - 357 [facility] x10(3)/[facility] LABORATORY RDWSD 53.5 (H) 36.0 - [place] SU 45.0 [facility] LABORATORY RDWCV 16.3 (H) 11.4 - [facility] 13.8 % [facility] LABORATORY MPV 8.8 7.6 - 12.9 [facility] nRBC % Auto 0.0 % [facility] nRBC Abs Auto 0.000 0.000 - [facility] 0.000 [facility] x10(3)/[facility] LABORATORY Specimen Anatomical Collection Method Collection Time Receive d Time (Source) Location / / Volume Laterality Blood specimen 08/11/2017 6:16 AM 018 6:24 (specimen) EST AM EST Resulting Agency Comment Spec In Lab Yonathan Smith MD HEMATOLOGY ORDERABLES Performing Organization Address City/State/ZIP Code Phon e Number [place] [id number] (ABNORMAL) Prothrombin Time (08/11/2017 [...] Organization Address City/State/Z[place] [address] Basic Metabolic Panel (non-fasting) (08/11/2017 6:16 AM EST) P athologist Signature Glucose Lvl 139 65 - 199 [facility] mg/dL [facility] LABORATORY Comment: Diabetes: [...] or in patients with acute kidney failure. [email or web address] Specimen Anatomical Collection Method Collection Time Receive d Time (Source) Location / / Volume Laterality Blood specimen 08/11/2017 6:16 AM 018 6:24 (specimen) EST AM EST Resulting Agency Comment Spec In Lab Yonathan Smith MD CHEMISTRY ORDERABLES Performing Organization Address City/State/ZIP Code Phon e Number [address] POCT Glucose (08/11/2017 4:07 AM EST) athologist Signature POC Glucose 162 65 - 199 [place] ZHA[place]U mg/dL [facility] LABORATORY Comment: Supplemental [...] [facility]/ZIP Code Phon e Number [place] [address] POCT Glucose (08/10/2017 11:59 PM EST) athologist Signature POC Glucose 166 65 - 199 [place] mg/dL [facility] LABORATORY Comment: Supplemental [...] [facility]/ZIP Code Phon e Number [place] DAVIS [address] POCT Glucose (08/10/2017 8:12 PM EST) athologist Signature POC Glucose 156 65 - 199 [place] SU mg/dL [facility] LABORATORY Comment: Supplemental [...] City/State/[place] [address] (ABNORMAL) POCT Glucose (08/10/2017 4:42 PM EST) P athologist Signature POC Glucose 211 (H) 65 - 199 [facility] mg/dL [facility] LABORATORY Comment: Supplemental [...] Address City/State/ZIP Code Phon e Number [address] (ABNORMAL) Differential, Automated (08/10/2017 2:30 PM EST) Patholo gist Method Time Signature Neutrophils % 87.6 % [facility] LABORATORY Neutr Abs (ANC) 9.90 (H) 1.70 - [facility] 6.10 [facility] x10(3)/[facility] L LABORATORY Lymphocytes % 4.3 % [facility] LABORATORY Lymphocytes Abs 0.5 (L) 0.9 - 3.2 [facility] x10(3)/[facility] LABORATORY Monocytes % 6.0 % [facility] LABORATORY Monocyte Abs 0.7 0.3 - 0.9 [facility] x10(3)/[facility] LABORATORY Eosinophils % 1.1 % [facility] LABORATORY Eosinophils Abs 0.1 0.0 - 0.4 [facility] x10(3)/[facility] LABORATORY Basophils % 0.4 % [facility] LABORATORY Basophils Abs 0.0 0.0 - 0.1 [facility] x10(3)/[facility] LABORATORY Immature Gran % [...] Organization Address City/State/[place] [address] (ABNORMAL) Hemogram (08/10/2017 2:30 PM EST) Analysis Performed At Patho logist Time Signature WBC 11.3 (H) 4.0 - 9.5 [facility] x10(3)/[facility] LABORATORY RBC 3.13 (L) 4.58 - [facility] SU 5.54 [facility] x10(6)/[facility] LABORATORY Hemoglobin 8.9 (L) 13.7 - [facility] 16.5 gm/dL [facility] LABORATORY Hematocrit 28.4 (L) 40.5 - [facility] 48.5 % [facility] LABORATORY MCV 90.7 82.9 - [facility] 93.1 [facility] LABORATORY MCH 28.4 27.5 - [facility] SU 32.1 pg [facility] LABORATORY MCHC 31.3 (L) 32.0 - [facility] 35.7 gm/dL [facility] LABORATORY Platelets 213 145 - 357 [facility] x10(3)/[facility] LABORATORY RDWSD 53.7 (H) 36.0 - [facility] SU 45.0 [facility] LABORATORY RDWCV 16.4 (H) 11.4 - [facility] SU 13.8 % [facility] LABORATORY MPV 8.9 7.6 - 12.9 [facility] LABORATORY nRBC % Auto 0.0 % [facility] LABORATORY nRBC Abs Auto 0.000 0.000 - [facility] SU 0.000 [facility] x10(3)/[facility] LABORATORY Specimen Anatomical Collection Method Collection Time Receive d Time (Source) Location / / Volume Laterality Blood specimen 08/10/2017 2:30 PM 018 2:48 (specimen) EST PM EST Resulting Agency Comment Spec In Lab Yonathan Smith MD HEMATOLOGY ORDERABLES Performing Organization Address City/State/[place] [address] (ABNORMAL) POCT Glucose (08/10/2017 1:50 PM EST) athologist Signature POC Glucose 243 (H) 65 - 199 [facility] mg/dL [facility] LABORATORY Comment: Supplemental [...] [facility]/[place] [address] POCT Glucose (08/10/2017 11:21 AM EST) athologist Signature POC Glucose 156 65 - 199 [facility] mg/dL [facility] LABORATORY Comment: Supplemental [...] City/State/Z[place] [address] (ABNORMAL) Differential, Automated (08/10/2017 10:28 AM EST) [facility] gist Method Time Signature Neutrophils % 85.3 % [facility] LABORATORY Neutr Abs (ANC) 9.43 (H) 1.70 - [facility] 6.10 [facility] x10(3)/[facility] L LABORATORY Lymphocytes % 5.5 % [facility] LABORATORY Lymphocytes Abs 0.6 (L) 0.9 - 3.2 [facility] x10(3)/[facility] LABORATORY Monocytes % 5.9 % [facility] LABORATORY Monocyte Abs 0.6 0.3 - 0.9 [facility] x10(3)/[facility] LABORATORY Eosinophils % 2.1 % [facility] LABORATORY Eosinophils Abs 0.2 0.0 - 0.4 [facility] x10(3)/[facility] LABORATORY Basophils % 0.4 % [facility] LABORATORY Basophils Abs 0.0 0.0 - 0.1 [facility] x10(3)/[facility] LABORATORY Immature Gran % 0.80 % [...] Organization Address City/State/Z[place] [address] (ABNORMAL) Hemogram (08/10/2017 10:28 AM EST) Analysis Performed At Patho logist Time Signature WBC 11.0 (H) 4.0 - 9.5 [facility] x10(3)/[facility] LABORATORY RBC 3.02 (L) 4.58 - [facility] 5.54 [facility] x10(6)/[facility] LABORATORY Hemoglobin 8.8 (L) 13.7 - [facility] 16.5 gm/dL [facility] LABORATORY Hematocrit 28.1 (L) 40.5 - [place] DAVIS 48.5 % [facility] LABORATORY MCV 93.0 82.9 - [facility] 93.1 [facility] LABORATORY MCH 29.1 27.5 - [place] OLIVASCK 32.1 pg [facility] LABORATORY MCHC 31.3 (L) 32.0 - [place] DAVIS 35.7 gm/dL [facility] LABORATORY Platelets 207 145 - 357 [place] x10(3)/[facility] LABORATORY RDWSD 55.3 (H) 36.0 - [place] OLIV[facility]CK 45.0 [facility] LABORATORY RDWCV 16.4 (H) 11.4 - [place] SU 13.8 % [facility] LABORATORY MPV 9.0 7.6 - 12.9 [facility] LABORATORY nRBC % Auto 0.0 % [facility] LABORATORY nRBC Abs Auto 0.000 0.000 - [place]HAOS[place] 0.000 [facility] x10(3)/[facility] LABORATORY Specimen Anatomical Collection Method Collection Time Receive d Time (Source) Location / / Volume Laterality Blood specimen 08/10/2017 10:28 8 (specimen) AM EST 10:35 AM EST Resulting Agency Comment Spec In Lab Yonathan Smith MD HEMATOLOGY ORDERABLES Performing Organization Address City/State/ZIP Code Phon e Number [place] [id number] VS Angiogram/intervention (vascular) (08/10/2017 [...] 2.5x80 5. Completion RLE angiogram 6. L BILLING SERVICES MANAGER angiogram 7. 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 - L BILLING SERVICES MANAGER angriogram demonstrated: High fe moral bifurcation over the proximal half of the femoral head. L BILLING SERVICES MANAGER access in the distal L BILLING SERVICES MANAGER. - Closure device: Mynx Technical Procedure: [...] for a 45cm 5F Destination. V18 and [place] a nd QuickCross catheters were used to [...] bifurcation. Access appeared in the distal R BILLING SERVICES MANAGER. Closure and sheath removal was performed [...] 2.5x80 5. Completion RLE angiogram 6. L BILLING SERVICES MANAGER angiogram 7. 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 - L BILLING SERVICES MANAGER angriogram demonstrated: High fe moral bifurcation over the proximal half of the femoral head. L BILLING SERVICES MANAGER access in the distal L BILLING SERVICES MANAGER. - Closure device: Mynx Technical Procedure: [...] for a 45cm 5F Destination. V18 and [place] a nd QuickCross catheters were used to [...] bifurcation. Access appeared in the distal R BILLING SERVICES MANAGER. Closure and sheath removal was performed [...] (ABNORMAL) Differential, Automated (08/10/2017 5:50 AM EST) [facility] Method Time Signature Neutrophils % 80.1 % [facility] LABORATORY Neutr Abs (ANC) 9.01 (H) 1.70 - [facility] 6.10 [facility] x10(3)/[facility] LABORATORY Lymphocytes % 8.8 % [facility] LABORATORY Lymphocytes Abs 1.0 0.9 - 3.2 [facility] x[facility](3[facility] LABORATORY Monocytes % 8.3 % [facility] LABORATORY Monocyte Abs 0.9 0.3 - 0.9 [facility] x[facility](3[facility] LABORATORY Eosinophils % 2.0 % [facility] LABORATORY Eosinophils Abs 0.2 0.0 - 0.4 [facility] x10(3)/[facility] LABORATORY Basophils % 0.4 % [facility] LABORATORY Basophils Abs 0.0 0.0 - 0.1 [facility] x10(3)/[facility] LABORATORY Immature Gran % 0.40 % [...] Organization Address City/State/[place] [address] (ABNORMAL) Hemogram (08/10/2017 5:50 AM EST) Analysis Performed At Patho logist Time Signature WBC 11.3 (H) 4.0 - 9.5 [facility] x10(3)/[facility] LABORATORY RBC 3.15 (L) 4.58 - [facility] 5.54 [facility] x10(6)/[facility] LABORATORY Hemoglobin 8.9 (L) 13.7 - [facility] 16.5 gm/dL [facility] LABORATORY Hematocrit 29.0 (L) 40.5 - [facility] 48.5 % [facility] LABORATORY MCV 92.1 82.9 - [facility] 93.1 [facility] LABORATORY MCH 28.3 27.5 - [place] SU 32.1 pg [facility] LABORATORY MCHC 30.7 (L) 32.0 - [facility] 35.7 gm/dL [facility] LABORATORY Platelets 231 145 - 357 [facility] x10(3)/[facility] LABORATORY RDWSD 53.9 (H) 36.0 - [place] SU 45.0 [facility] LABORATORY RDWCV 16.2 (H) 11.4 - [facility] 13.8 % [facility] LABORATORY MPV 8.7 7.6 - 12.9 [facility] LABORATORY nRBC % Auto 0.0 % [facility] LABORATORY nRBC Abs Auto 0.000 0.000 - [facility] 0.000 [facility] x10(3)/[facility] LABORATORY Specimen Anatomical Collection Method Collection Time Receive d Time (Source) Location / / Volume Laterality Blood specimen 08/10/2017 5:50 AM 018 5:59 (specimen) EST AM EST Resulting Agency Comment Spec In Lab Yonathan Smith MD HEMATOLOGY ORDERABLES Performing Organization Address City/State/Z[place] [address] (ABNORMAL) Basic Metabolic Panel (non-fasting) (08/10/2017 5:50 AM EST) P athologist Signature Glucose Lvl 135 65 - 199 [facility] mg/dL [facility] LABORATORY Comment: Diabetes: [...] or in patients with acute kidney failure. [email or web address] Specimen Anatomical Collection Method Collection Time Receive d Time (Source) Location / / Volume Laterality Blood specimen 08/10/2017 5:50 AM 018 5:59 (specimen) EST AM EST Resulting Agency Comment Spec In Lab Yonathan Smith MD CHEMISTRY ORDERABLES Performing Organization Address [facility] [place] [address] (ABNORMAL) Prothrombin Time (08/10/2017 [...] ORDERABLES Performing Organization Address City/[facility] [place] [address] (ABNORMAL) POCT Glucose (08/10/2017 4:01 AM EST) athologist Signature POC Glucose 206 (H) 65 - 199 [facility] mg/dL [facility] LABORATORY Comment: Supplemental [...] City/State/[place] [address] POCT Glucose (08/10/2017 2:01 AM EST) athologist Signature POC Glucose 188 65 - 199 [place] mg/dL [facility] LABORATORY Comment: Supplemental [...] [facility] [address] (ABNORMAL) POCT Glucose (08/09/2017 11:42 PM EST) athologist Signature POC Glucose 283 (H) 65 - 199 [facility] mg/dL [facility] LABORATORY Comment: Supplemental [...] City/State/[place] [address] POCT Glucose (08/09/2017 8:55 PM EST) athologist Signature POC Glucose 182 65 - 199 [place] mg/dL [facility] LABORATORY Comment: Supplemental [...] [facility] [address] (ABNORMAL) APTT (08/09/2017 6:42 [...] [facility]/[place] [address] POCT Glucose (08/09/2017 4:41 PM EST) athologist Signature POC Glucose 195 65 - 199 [facility] mg/dL [facility] LABORATORY Comment: Supplemental [...] [facility]/[place] [address] POCT Glucose (08/09/2017 12:29 PM EST) athologist Signature POC Glucose 140 65 - 199 [facility] mg/dL [facility] LABORATORY Comment: Supplemental ranges: <140 mg/dL before meals <180 mg/dL all other times of the day Specimen Anatomical Collection Method Collection Time Receive d Time (Source) Location / / Volume Laterality Blood specimen 08/09/2017 12:29 8 (specimen) PM EST 12:29 PM EST Yonathan Smith MD POINT OF CARE TEST ORDERABLE S Performing Organization Address [facility]/ZIP Code Phon e Number [address] POCT Glucose (08/09/2017 9:59 AM EST) P athologist Signature POC Glucose 135 65 - 199 [facility] mg/dL [facility] LABORATORY Comment: Supplemental ranges: <140 mg/dL before meals <180 mg/dL all other times of the day Specimen Anatomical Collection Method Collection Time Receive d Time (Source) Location / / Volume Laterality Blood specimen 08/09/2017 9:59 AM 018 9:59 (specimen) EST AM EST Yonathan Smith MD POINT OF CARE TEST ORDERABLE S Performing Organization Address [facility]/[place] [address] Specimen to Pathology (08/09/2017 [...] PATHOLOGY/CYTOLOGY ORDERABLE S Performing Organization Address City/[facility]/[place] [address] Surgical Pathology Report (08/09/2017 8:40 AM EST) Component Value Ref Test Analysis Performed At Patholo gist Range Method Time Signature Surgical [id number] ? Location: [facility]; [facility]; A [facility] Report The signing pathologist has (i) [...] at: ??[facility] Dept. of Pathology, [place], [place] CLINICAL INFORMATION Specimen Submitted: A - [...] Organization Address City/State/Z[place] [address] Anaerobic Culture (08/09/2017 8:30 AM EST) [facility] Method Time Signature Anaerobic No anaerobic [facility] Culture organisms [facility] LABORATORY Specimen Anatomical Collection Method Collection [...] [facility]/[place] [address] (ABNORMAL) Abscess/Wound Aspirate Culture (08/09/2017 8:30 AM EST) [facility] [employer] Method Time Signature Abscess/Wound Moderate mixed [facility] Aspirate bacterial [place] Culture morphotypes [facility] normal LABORATORY cutaneous leroy (A) Gram Stain Rare White Blood Cells [place] Few Gram Positive Cocci in pairs [place] () [facility] LABORATORY Organism Gram Positive [place] Cocci in pairs [place] () [facility] LABORATORY Specimen Anatomical [...] [facility]/ZIP Code Phon [place] [address] POCT Glucose (08/09/2017 4:28 AM EST) P athologist Signature POC Glucose 128 65 - 199 [facility] mg/dL [facility] LABORATORY Comment: Supplemental [...] City/State/[place] [address] ABORH Recheck Status (08/09/2017 1:10 AM EST) [facility] Method Time Signature ABORH Type Completed [facility] LABORATORY Specimen Anatomical Collection Method Collection Time Receive d Time (Source) Location / / Volume Laterality Blood specimen 08/09/2017 1:10 AM 018 1:35 (specimen) EST AM EST Resulting Agency Comment Spec In Lab Yonathan Smith MD BLOOD BANK ORDERABLES Performing Organization Address City/State/[place] [address] Antibody screen (08/09/2017 1:10 AM EST) [facility] Method [place] Signature Ab Screen Negative [facility] LABORATORY Expires at 08/12/2017 [facility] [id number] on: [facility] LABORATORY Specimen Anatomical Collection Method Collection Time Receive d Time (Source) Location / / Volume Laterality Blood specimen 08/09/2017 1:10 AM 018 1:35 (specimen) EST AM EST Resulting Agency Comment Spec In Lab Yonathan Smith MD BLOOD BANK ORDERABLES Performing Organization Address City/State/[place] [address] ABO/Rh Typing (08/09/2017 1:10 [...] City/State/[place] [address] (ABNORMAL) APTT (08/09/2017 1:10 [...] Organization Address City/State/Z[place] [address] (ABNORMAL) Differential, Automated (08/09/2017 1:10 AM EST) [facility] Method Time Signature Neutrophils % 76.2 % [facility] LABORATORY Neutr Abs (ANC) 8.59 (H) 1.70 - [facility] 6.10 [facility] x10(3)/[facility] LABORATORY Lymphocytes % 11.0 % [facility] LABORATORY Lymphocytes Abs 1.2 0.9 - 3.2 [facility] x10(3)/[facility] LABORATORY Monocytes % 8.4 % [facility] LABORATORY Monocyte Abs 1.0 (H) 0.3 - 0.9 [facility] x10(3)/[facility] LABORATORY Eosinophils % 3.5 % [facility] LABORATORY Eosinophils Abs 0.4 0.0 - 0.4 [facility] x10(3)/[facility] LABORATORY Basophils % 0.5 % [facility] LABORATORY Basophils Abs 0.1 0.0 - 0.1 [facility] x10(3)/[facility] LABORATORY Immature Gran % 0.40 % [...] Organization Address City/State/Z[place] [address] (ABNORMAL) Hemogram (08/09/2017 1:10 AM EST) Analysis Performed At Patho logist Time Signature WBC 11.3 (H) 4.0 - 9.5 [facility] x10(3)/[facility] LABORATORY RBC 3.47 (L) 4.58 - [facility] 5.54 [facility] x10(6)/[facility] LABORATORY Hemoglobin 10.0 (L) 13.7 - [facility] 16.5 gm/dL [facility] LABORATORY Hematocrit 31.9 (L) 40.5 - [facility] 48.5 % [facility] LABORATORY MCV 91.9 82.9 - [facility] 93.1 [facility] LABORATORY MCH 28.8 27.5 - [facility] 32.1 pg [facility] LABORATORY MCHC 31.3 (L) 32.0 - [facility] 35.7 gm/dL [facility] LABORATORY Platelets 234 145 - 357 [facility] x10(3)/[facility] LABORATORY RDWSD 54.0 (H) 36.0 - [facility] SU 45.0 [facility] LABORATORY RDWCV 16.2 (H) 11.4 - [facility] SU 13.8 % [facility] LABORATORY MPV 8.7 7.6 - 12.9 [facility] LABORATORY nRBC % Auto 0.0 % [facility] LABORATORY nRBC Abs Auto 0.000 0.000 - [facility] SU 0.000 [facility] x10(3)/[facility] LABORATORY Specimen Anatomical Collection Method Collection Time Receive d Time (Source) Location / / Volume Laterality Blood specimen 08/09/2017 1:10 AM 018 1:19 (specimen) EST AM EST Resulting Agency Comment Spec In Lab Yonathan Smith MD HEMATOLOGY ORDERABLES Performing Organization Address City/[facility]/[place] [address] (ABNORMAL) Prothrombin Time (08/09/2017 [...] [facility]/[place] [address] (ABNORMAL) Basic Metabolic Panel (non-fasting) (08/09/2017 1:10 AM EST) P athologist Signature Glucose Lvl 108 65 - 199 [facility] mg/dL [facility] Comment: Diabetes: [...] or in patients with acute kidney failure. http://[employer] [place]/DHnkdep http://[employer] [place]/DHMCnkf Specimen Anatomical Collection Method Collection Time Receive d Time (Source) Location / / Volume Laterality Blood specimen 08/09/2017 1:10 AM 018 1:19 (specimen) EST AM EST Resulting Agency Comment Spec In Lab Yonathan Smith MD CHEMISTRY ORDERABLES Performing Organization Address City/State/ZIP Code Phon e Number [address] POCT Glucose (08/09/2017 12:05 AM EST) athologist Signature POC Glucose 128 65 - 199 [facility] mg/dL [facility] Comment: Supplemental [...] [facility]/[place] [address] (ABNORMAL) POCT Glucose (08/08/2017 7:36 PM EST) athologist Signature POC Glucose 215 (H) 65 - 199 [facility] mg/dL [facility] Comment: Supplemental [...] City/State/[place] [address] (ABNORMAL) POCT Glucose (08/08/2017 6:23 PM EST) P athologist Signature POC Glucose 216 (H) 65 - 199 [facility] mg/dL [facility] Comment: Supplemental [...] [facility]/[place] [address] (ABNORMAL) APTT (08/08/2017 6:00 [...] [facility]/[place] [address] POCT Glucose (08/08/2017 4:42 PM EST) athologist Signature POC Glucose 78 65 - 199 [facility] mg/dL [facility] Comment: Supplemental [...] City/State/[place] [address] (ABNORMAL) POCT Glucose (08/08/2017 4:01 PM EST) athologist Signature POC Glucose 58 (L) 65 - 199 [facility] mg/dL [facility] Comment: Supplemental [...] City/State/[place] [address] POCT Glucose (08/08/2017 11:51 AM EST) athologist Signature POC Glucose 90 65 - 199 [facility] mg/dL [facility] Comment: Supplemental [...] City/State/[place] [address] (ABNORMAL) APTT (08/08/2017 10:27 [...] Address City/State/ZIP Code Phon e Number [address] POCT Glucose (08/08/2017 8:02 AM EST) athologist Signature POC Glucose 178 65 - 199 [facility] mg/dL [facility] Comment: Supplemental [...] [facility]/[place] [address] (ABNORMAL) APTT (08/08/2017 4:51 AM EST) athologist Signature PTT >160 25 - 35 [facility] (Critical) sec [facility] Comment: [...] Organization Address City/State/ZIP [place] [address] (ABNORMAL) Differential, Automated (08/08/2017 4:51 AM EST) [facility] gist Method Time Signature Neutrophils % 77.9 % [facility] LABORATORY Neutr Abs (ANC) 8.17 (H) 1.70 - [facility] 6.10 [facility] x10(3)/[facility] LABORATORY Lymphocytes % 10.3 % [facility] LABORATORY Lymphocytes Abs 1.1 0.9 - 3.2 [facility] x10(3)/[facility] LABORATORY Monocytes % 7.0 % [facility] LABORATORY Monocyte Abs 0.7 0.3 - 0.9 [facility] x10(3)/[facility] LABORATORY Eosinophils % 3.6 % [facility] LABORATORY Eosinophils Abs 0.4 0.0 - 0.4 [facility] x10(3)/[facility] LABORATORY Basophils % 0.5 % [facility] LABORATORY Basophils Abs 0.0 0.0 - 0.1 [facility] x10(3)/[facility] LABORATORY Immature Gran % 0.70 % [...] City/State/[place] [address] (ABNORMAL) Hemogram (08/08/2017 4:51 AM EST) Analysis Performed At Patho logist Time Signature WBC 10.5 (H) 4.0 - 9.5 [facility] x10(3)/[facility] LABORATORY RBC 3.27 (L) 4.58 - [facility] 5.54 [facility] x10(6)/[facility] LABORATORY Hemoglobin 9.3 (L) 13.7 - [facility] 16.5 gm/dL [facility] Hematocrit 30.3 (L) 40.5 - [facility] 48.5 % [facility] MCV 92.7 82.9 - [facility] 93.1 [facility] LABORATORY MCH 28.4 27.5 - [facility] 32.1 pg [facility] MCHC 30.7 (L) 32.0 - [facility] 35.7 gm/dL [facility] Platelets 252 145 - 357 [facility] x10(3)/[facility] LABORATORY RDWSD 54.6 (H) 36.0 - [facility] 45.0 [facility] LABORATORY RDWCV 16.2 (H) 11.4 - [facility] 13.8 % [facility] MPV 9.1 7.6 - 12.9 [facility] LABORATORY nRBC % Auto 0.0 % [facility] LABORATORY nRBC Abs Auto 0.000 0.000 - [facility] 0.000 [facility] x10(3)/[facility] LABORATORY Specimen Anatomical Collection Method Collection Time Receive d Time (Source) Location / / Volume Laterality Blood specimen 08/08/2017 4:51 AM 018 5:14 (specimen) EST AM EST Resulting Agency Comment Spec In Lab Yonathan Smith MD HEMATOLOGY ORDERABLES Performing Organization Address City/State/[place] [address] (ABNORMAL) Prothrombin Time (08/08/2017 [...] Organization Address City/State/ZIP [place] [address] (ABNORMAL) Basic Metabolic Panel (non-fasting) (08/08/2017 4:51 AM EST) athologist Signature Glucose Lvl 229 (H) 65 - 199 [facility] mg/dL [facility] Comment: Diabetes: [...] or in patients with acute kidney failure. http://[employer] [place]/DHnkdep http://[employer] [place]/DHMCnkf Specimen Anatomical Collection Method Collection Time Receive d Time (Source) Location / / Volume Laterality Blood specimen 08/08/2017 4:51 AM 018 5:14 (specimen) EST AM EST Resulting Agency Comment Spec In Lab Yonathan Smith MD CHEMISTRY ORDERABLES Performing Organization Address City/[facility]/ZIP Code Phon e Number [address] POCT Glucose (08/08/2017 4:20 AM EST) athologist Signature POC Glucose 193 65 - 199 [facility] mg/dL [facility] Comment: Supplemental [...] Address City/State/ZIP Code Phon e Number [address] POCT Glucose (08/07/2017 11:11 PM EST) athologist Signature POC Glucose 124 65 - 199 [facility] mg[facility]dL [facility] Comment: Supplemental [...] [facility]/[place] [address] (ABNORMAL) APTT (08/07/2017 10:18 [...] [facility]/[place] [address] POCT Glucose (08/07/2017 8:10 PM EST) athologist Signature POC Glucose 140 65 - 199 [facility] mg/dL [facility] Comment: Supplemental [...] [facility]/ZIP [place] [address] POCT Glucose (08/07/2017 5:27 PM EST) athologist Signature POC Glucose 187 65 - 199 [facility] mg/dL [facility] Comment: Supplemental [...] [facility]/[place] [address] POCT Glucose (08/07/2017 3:29 PM EST) athologist Signature POC Glucose 86 65 - 199 [facility] mg/dL [facility] Comment: Supplemental ranges: <140 mg/dL before meals <180 mg/dL all other times of the day Specimen Anatomical Collection Method Collection Time Receive d Time (Source) Location / / Volume Laterality Blood specimen 08/07/2017 3:29 PM 018 3:29 (specimen) EST PM EST Yonathan Smith MD POINT OF CARE TEST ORDERABLE S Performing Organization Address [facility]/ZIP [facility] [place] [address] (ABNORMAL) APTT (08/07/2017 2:50 [...] Performing Organization Address City/[facility]/ZIP [facility] Phon e Number [address] (ABNORMAL) POCT Glucose (08/07/2017 2:23 PM EST) athologist Signature POC Glucose 55 (L) 65 - 199 [facility] mg/dL [facility] Comment: Supplemental [...] Address City/State/ZIP Code Phon e Number [address] POCT Glucose (08/07/2017 12:08 PM EST) P athologist Signature POC Glucose 77 65 - 199 [facility] mg/dL [facility] Comment: Supplemental [...] Address City/State/ZIP Code Phon e Number [address] (ABNORMAL) Differential, Automated (08/07/2017 7:30 AM EST) Patholo gist Method Time Signature Neutrophils % 73.8 % [facility] LABORATORY Neutr Abs (ANC) 7.17 (H) 1.70 - [facility] 6.10 [facility] x10(3)/[facility] LABORATORY Lymphocytes % 12.2 % [facility] LABORATORY Lymphocytes Abs 1.2 0.9 - 3.2 [facility] x10(3)/[facility] LABORATORY Monocytes % 9.0 % [facility] LABORATORY Monocyte Abs 0.9 0.3 - 0.9 [facility] x10(3)/[facility] LABORATORY Eosinophils % 3.9 % [facility] LABORATORY Eosinophils Abs 0.4 0.0 - 0.4 [facility] x10(3)/[facility] LABORATORY Basophils % 0.6 % [facility] LABORATORY Basophils Abs 0.1 0.0 - 0.1 [facility] x10(3)/[facility] LABORATORY Immature Gran % 0.50 % [...] Organization Address City/State/Z[place] [address] (ABNORMAL) Hemogram (08/07/2017 7:30 AM EST) Analysis Performed At Patho logist Time Signature WBC 9.7 (H) 4.0 - 9.5 [facility] x10(3)/[facility] LABORATORY RBC 3.54 (L) 4.58 - [facility] 5.54 [facility] x10(6)/[facility] LABORATORY Hemoglobin 9.9 (L) 13.7 - [facility] 16.5 gm/dL [facility] LABORATORY Hematocrit 32.3 (L) 40.5 - [facility] 48.5 % [facility] LABORATORY MCV 91.2 82.9 - [facility] 93.1 [facility] LABORATORY MCH 28.0 27.5 - [facility] 32.1 pg [facility] MCHC 30.7 (L) 32.0 - [facility] 35.7 gm/dL [facility] Platelets 312 145 - 357 [facility] x10(3)/[facility] LABORATORY RDWSD 53.2 (H) 36.0 - [facility] 45.0 [facility] LABORATORY RDWCV 16.0 (H) 11.4 - [facility] 13.8 % [facility] LABORATORY MPV 8.9 7.6 - 12.9 [facility] LABORATORY nRBC % Auto 0.0 % [facility] LABORATORY nRBC Abs Auto 0.000 0.000 - [facility] 0.000 [facility] x10(3)/[facility] LABORATORY Specimen Anatomical Collection Method Collection Time Receive d Time (Source) Location / / Volume Laterality Blood specimen 08/07/2017 7:30 AM 018 7:45 (specimen) EST AM EST Resulting Agency Comment Spec In Lab Yonathan Smith MD HEMATOLOGY ORDERABLES Performing Organization Address City/State/ZIP [place] [address] (ABNORMAL) Basic Metabolic Panel (non-fasting) (08/07/2017 7:30 AM EST) P athologist Signature Glucose Lvl 80 65 - 199 [facility] mg/dL [facility] Comment: Diabetes: [...] CENTER LABORATORY Estimated GFR 59 (L) >=60 [facility] LABORATORY Comment: The reported eGFR should be multiplied b y 1.2 for patients. The MDRD is not an appropriate measure o f renal function for patients with body mass extremes or in patients with acute kidney failure. http://[employer] [place]/DHnkdep http://[employer] [place]/DHMCnkf Specimen Anatomical Collection Method Collection Time Receive d Time (Source) Location / / Volume Laterality Blood specimen 08/07/2017 7:30 AM 018 7:45 (specimen) EST AM EST Resulting Agency Comment Spec In Lab Yonathan Smith MD CHEMISTRY ORDERABLES Performing Organization Address City/[facility] Phon e Number [address] POCT Glucose (08/07/2017 7:27 AM EST) athologist Signature POC Glucose 81 65 - 199 [facility] mg/dL [facility] Comment: Supplemental ranges: <140 mg/dL before meals <180 mg/dL all other times of the day Specimen Anatomical Collection Method Collection Time Receive d Time (Source) Location / / Volume Laterality Blood specimen 08/07/2017 7:27 AM 018 7:27 (specimen) EST AM EST Yonathan Smith MD POINT OF CARE TEST ORDERABLE S Performing Organization Address [facility] Phon e Number [address] APTT (08/07/2017 7:04 AM [...] [facility]/[place] [address] (ABNORMAL) Prothrombin Time (08/07/2017 [...] City/State/[place] [address] POCT Glucose (08/07/2017 4:03 AM EST) athologist Signature POC Glucose 93 65 - 199 [facility] mg/dL [facility] Comment: Supplemental [...] City/State/Z[place] [address] POCT Glucose (08/07/2017 12:04 AM EST) athologist Signature POC Glucose 107 65 - 199 [facility] mg/dL [facility] Comment: Supplemental [...] Address City/State/ZIP Code Phon e Number [address] POCT Glucose (08/06/2017 7:56 PM EST) P athologist Signature POC Glucose 178 65 - 199 [facility] mg/dL [facility] Comment: Supplemental [...] Address City/State/ZIP Code Phon e Number [address] TcPO2 (08/06/2017 2:32 PM EST) Component Value Ref Test Analysis Performed At Patholo gist Range Method Time Signature VB Text Department: Vascular Surgery Lab VASCUBASE Report Patient: [id number] (GREGORY HOANG) CPT: 1140870 ICD10: I99.8 Referring Physician: YONATHAN SMITH ?? [...] Truong, RN) 0800 (Given - Provider: Dory Trunog, VAMSI) 400 [...] 0454 (Given - P rovider: Henrique Marks RN)0892 (Given - Provider: Chiquis Mcgrath RN)1135 (Given [...]
Routine documented in this encounter Care Teams Substation Electrician Supervisor Relationship Specialty Start Date End Date Lovely Vicente MD PCP - General 04/16/[address] [place] [address] [address] [place] [address] documented as of this encounter
--- OUTSIDE RECORDS SUMMARY | 2022-04-10 08:58 | XMS_ITS | Encounter Summary ---
:1945 Author Organization [place] [address] Care Team Providers Name Role Phone Lovely Vicente MD Primary Care Provider Encounter Details Date Type Department Care Team Description 08/19/2017 Office Visit Vascular Surgery at [place], PAD (peripheral artery [facility] LOCATOR SPECIALIST disease) [facility] [address] [place], [place] VASCULAR SURGERY [address] [place] [address] [phone] Social History Tobacco Use Types Packs/Day Years [...] Zulma Dolan MD [facility] [place], [place] [address] (Wo rk) 05/28/2022 Laboratory Appointment Lab 05/28/2022 Office Visit Cardiology Zulma Dolan MD [facility] [place] [address] Liz Poole PA [facility] [place] [address] 06/10/2022 Office Visit Dermatology Laura Scherer MD [facility] [address] [place], [place] [address] (Wo rk) documented as of this encounter Visit Diagnoses Diagnosis PAD (peripheral artery disease) Peripheral vascular disease, unspecified documented in this encounter Care Teams Cheese Supervisor Relationship Specialty Start Date End Date Lovely Vicente MD PCP - General 04/16/[address] [place] [address] documented as of this encounter
--- OUTSIDE RECORDS SUMMARY | 2022-04-10 08:58 | XMS_ITS | Encounter Summary ---
:1945 Author Organization [facility] [place] [address] Care Team Providers Name Role Phone Lovely Vicente MD Primary Care Provider Reason for Visit Reason Comments Follow-up Encounter Details Date Type Department Care Team Description 08/19/2017 Office Visit Cardiac Surgery at [place], Jock S/P C ABG (coronary [facility], artery bypass graft) Counts [facility] [place] CARDIOTHORACIC [address] SURGERY [phone] [place], [place] [address] Social History Tobacco Use Types [...] office. Best personal regards, Yuan [place] MD [phone] documented in this encounter Plan of Treatment Upcoming Encounters Date Type Specialty Care Team Description 05/28/2022 Appointment Cardiology Zulma Dolan MD [facility] [place] [address] [place] 0[address] (Wo rk) 05/28/2022 Laboratory Appointment Lab 05/28/2022 Office Visit Cardiology Zulma Dolan [place] [address] Liz Poole PA [facility] [place] [address] 06/10/2022 Office Visit Dermatology Laura Scherer MD [facility] ER [address] [address] (Wo rk) documented as of this encounter [...] 454 ms MUSE SYSTEM (Bezet) Calculated P [place] 20 degrees MUSE SYSTEM Calculated R [place] -29 degrees MUSE SYSTEM Calculated T [place] 121 degrees MUSE SYSTEM INTERPRETATION Normal sinus rhythm MUSE SYSTEM Inferior 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
--- OUTSIDE RECORDS SUMMARY | 2022-04-10 08:58 | XMS_ITS | Encounter Summary ---
:1945 Author Organization [facility] [place] [address] Care Team Providers Name Role Phone Lovely Vicente MD Primary Care Provider Encounter Details Date Type Department Care Team Description 08/25/2017 Telephone Pain Management at [place], [place] [address] Social History Tobacco Use Types Packs/Day [...] Management Center Preauthorization Request Patient: Don Fatima [id number] Fax received from [employer] denying prior authorization for Lidocaine Patches prescribed by Barbra Soares APRN. RX insurance plan: [employer] insurance telephone: [phone] Patient Diagnosis: right foot pain secondary to PVD and ischemia ? Previous medications attempted: Tylenol, Tramadol, Dilaudid Authorization/Reference number: [id number] _x_ denied, provider and patient informed _x_ appeal initiated by provider, patient informed [place] Rodrigez, RN documented in this encounter Plan of Treatment Upcoming Encounters Date Type Specialty Care Team Description 05/28/2022 Appointment Cardiology Zulma Dolan MD [facility] [place], [place] [address] (Wo rk) 05/28/2022 Laboratory Appointment Lab 05/28/2022 Office Visit Cardiology Zulma Dolan MD [facility] [place] [address] Liz Poole PA [facility] [place] [address] 06/10/2022 Office Visit Dermatology Laura Scherer MD [facility] [address] [place], [place] [address] (Wo rk) documented as of this encounter Visit Diagnoses Not on filedocumented in this encounter Care Teams Bookmobile Clerk Relationship Specialty Start Date End Date Lovely Vicente MD PCP - General 04/16/[address] [place] [address] documented as of this encounter
--- OUTSIDE RECORDS SUMMARY | 2022-04-10 08:59 | XMS_ITS | Encounter Summary ---
:1945 Author Organization [facility] [place] [address] Care Team Providers Name Role Phone Lovely Vicente MD Primary Care Provider Encounter Details Date Type Department Care Team Description 08/09/2017 Clinical Support Same Day at [facility] Canceled (D-SCHED ERROR [facility] / CORRECT ION ) [place] [address] Social History Tobacco Use Types Packs/Day [...] Description 05/28/2022 Appointment Cardiology Zulma Dolan MD [facility] er [place], [place] [address] (Wo rk) 05/28/2022 Laboratory Appointment Lab 05/28/2022 Office Visit Cardiology Zulma Dolan MD [facility] [place] [address] Liz Poole PA [facility] [place] [address] 06/10/2022 Office Visit Dermatology Laura Scherer MD [facility] [address] [place], [place] [address] (Wo rk) documented as of this encounter Procedures Procedure Name Priority Date/Time Associated Diagnosis Comme nts WOOD CAULKER 08/09/2017 12:00 AM Resul ts for this SCAN EST procedure are i n the results section. documented in this encounter Results SCAN DOC: WOOD CAULKER (08/09/2017 12:00 AM EST) Narrative 08/09/2017 12:00 AM EST This result has an attachment that is no t available. Ordered by an unspecified provider. 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
--- OUTSIDE RECORDS SUMMARY | 2022-04-10 08:59 | XMS_ITS | Encounter Summary ---
:1945 Author Organization [facility] [place] [address] Care Team Providers Name Role Phone Lovely Vicente MD Primary Care Provider Reason for Visit Auth/Cert Specialty Diagnoses / Procedures Referred By Contact Refer red To Contact Diagnoses Critical lower limb ischemia CELLULITIS RT FOOT Procedures EMERGENCY Referral ID Status Reason Start Date Expiration Date Visits Requ ested Visits Authorized [id number] 1 1 Encounter Details Date Type Department Care Team Description 08/11/2017 Surgery Main Operating Room Yonathan Smith (M SURG) DRESSING CHANGE Barbara Ocampo MD (FOR OTHER THAN IVAN) [facility] UNDER ANES. 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 Patient [...] Dorsalis Pedis (Ankle) Artery ?132 ? 0.94 ??[place]-Biphasic ? Posterior Tibial (Ankle) Artery ??154 ? 1.10 ??[place]-Biphasic ? Fourth Toe ? 67 ?0.48 ?? [...] foot. Discharge Conditions/Prognosis: Good Discharge to: [facility] Rehab Discharge Medications: Your Medications New [...] For any problems or questions please call [phone] ZELDA Smith, exhibition designer Nurse Clinician For issues on weeknights after 5pm and weekends please call [phone] and ask for the Vascular Fellow construction analyst. General Instructions None Future Appointments and Orders Future Appointments Provider Department Dept Phone 08/26/2017 4:00 PM Aurelia Rivera PA Vascular Surgery at [place] [phone] 09/07/2017 3:00 PM LAB, THREE L Lab 3L [facility] [phone] 09/07/2017 4:00 PM Luz Prescott MD Endocrinology at [place] [phone] 09/09/2017 8:00 AM Barbra Soares APRN Pain Management [facility] [place] [phone] Please bring a list of your current [...] For any problems or questions please call [phone] ZELDA Smith, exhibition designer Nurse Clinician For issues on weeknights after 5pm and weekends please call [phone] and ask for the Vascular Fellow construction analyst. documented in this encounter Medications at [...] Discharge Note Patient Destination: [facility] ([facility]) [address] [place] [id number] Transportation: with (at bedside) Time of Discharge: by 12 noon Level of Care: swing Patient Aware: yes Family Notified: yes Md to call report to: Yissel Quintero INTERIOR PLANT CARETAKER already called RN to call report to: [phone] Shirin Wolf Office of Care Management Pager [phone] Shirin Wagner RN - 08/16/2017 10:[address] [facility] has offered pt swing bed. Pt and accept bed. will transport via car. INTERIOR PLANT CARETAKER Yissel Quintero aware; d/c paperwork will be completed by [address] [facility] requests pt arrival by 1400 today; INTERIOR PLANT CARETAKER, RN, and family aware. INTERIOR PLANT CARETAKER called [facility] and was told that they prefer pt to arrive with wound vac dressing applied but clamped. INTERIOR PLANT CARETAKER applied new wound vac dressing. RN has [facility] number to call report. PASSR completed; INTERIOR PLANT CARETAKER paged to request provider signature in highlighted space. Indigo from [facility] notified via email that home wound vac now cancelled; [facility] has picked up from room and order cancelled. Packet started and provided to ammunition and explosives handler. Medicare important message explained to patient, patient signed. Copy provided to patient and signature page to OCM for inclusion in pt EMR. Radha Georges - 08/16/2017 10:34 AM EST Office of Care Management/Fence Erector Patient Name: Gregory Hoang : 1945 Patient has been offered a swing bed at [facility]. The patient will be transported by private transportation. No MD to MD report necessary Please call Nursing Report to [phone], ask for signal tower director. Info to accompany patient: Narcotic Prescriptions Copies of Medication Administration Records and IV sheets for past 10 days. Plan: Fence Erector will be available to the patient and Distribution Driver-RN and/or Inspector Machined Parts for further assistance. Patient will be discharged to: [facility] [address] [place] [address] [id number] Radha Powers, Fence Erector Mira Black, VAMSI - 08/15/2017 10:05 PM EST [address] Flores to ask if he wanted to hold metoprolol dose. BP 95/58. OK to hold this dose Courtney Brito - 08/15/2017 3:26 PM EST Office of Care Management(OCM)/Fence Erector(RS)/ D/C Planning re : Patient is medically ready for d/c today. RS has been in contact with [facility] to see if they could offer a bed. [facility] is still reviewing the case and need their MD to review chart prior to accepting or declining. OCM team needs to check in with [place] tomorrow to check on status. 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 Vac in place. [...] would like information about patient's referral to: [facility] PHONE: [phone] FAX: [phone] CM spoke with RS who said that [...] rehab. Await recommendations from PT. Covering pager #[phone]. 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 Box Office Clerk Kaitlin Saha, RN Pager #[phone] Payam Rosales - 08/13/2017 2:37 PM EST Cadd Drafter Encounter Note Patient Name: Gregory Hoang : [id number] MR#: [id number] Admit Date: 08/06/2017 1:41 PM Hospital Day 7 days Narrative: Visited to introduce and assess acceptance of [facility] services. Pt was awake, alert, oriented and in chair and family was there. Assessment:Patient coping positively with stresses of illness/hospitalization at this time. Pt says that he is hoping to get better and his family was there. Pt says that he has family care and supportand taking one day at time. Intervention and Outcome: Provided emotional support and encouraging presence. 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 A letter describing our affiliations was reviewed with them and theywere educated about their right to choose where referrals are placed. Patient requests referral to [facility] [employer]. PHONE: [phone] FAX: [phone]. And Home NPWT (Negative Pressure Wound Therapy) aka wound vac device made available to pt. Serial # confirmed. Reviewed [facility] Proof of Delivery/Assignment of Benefits Statement(POD/AOB) Form w patient or authorized agent signing on behalf of patient. Copy of POD/AOB provided to pt and other copy faxed to [employer] @ fax# [phone] Expected date of discharge: 08/12/2017. 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 Madidson Holly RN - 08/10/2017 5:40 AM EST [...] : 1945 AGE 72 y.o. 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 Pt has been given Ativan and Dilaudid and is becoming increasingly more lethargic. Sitter to remain in room with pt for safety. Phlebotomy arrived for PTT blood draw at 0045. Unsuccessful draw attempt, another flame planer will come [facility] to collect blood for PTT test. 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 Vascular resident construction analyst and will forward result to the team prior to rounds. 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 Patient [...] left blue toes with CTA showing R BENEFITS ASSISTANT pseudoaneurysm (now thrombosed) and occluded ATs bilaterally. [...] 2.5x80 5. Completion RLE angiogram 6. L BENEFITS ASSISTANT angiogram 7. 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 - L BENEFITS ASSISTANT angriogram demonstrated: High femoral bifurcation over the proximal half of the femoral head. L BENEFITS ASSISTANT access in the distal L BENEFITS ASSISTANT. - Closure device: Mynx Technical Procedure: The [...] for a 45cm 5F Destination. V18 and Kiana and QuickCross catheters were used to select [...] 5F. A stationed picture of the L BENEFITS ASSISTANT was performed as the patient was noted to have a very high bifurcation. Access appeared in the distal R BENEFITS ASSISTANT. Closure and sheath removal was performed with [...] PM EST 1440 report called to 5 dugway nurse Tessa AGUSTIN documented in this encounter Miscellaneous Notes Plan of Care - Dory Truong RN - 08/16/2017 10:51 AM EST Problem: Patient Care Overview Goal: Plan of Care Review Outcome: Outcome (s) achieved Date Met: 08/16/17 08/14/17 1939 08/16/17 5321 Coping/Psychosocial Plan Of Care Reviewed With -- patient Plan of Care Review Progress improving -- Discussed discharge instructions with pt and pt's spouse. Discharge to [facility]. Goal: Individualization & Mutuality Outcome: Outcome [...] sit/sit to supine -- Bed Mobility Goal, [place] Level independent -- Bed Mobility Goal, Date [...] days -- Transfer Training Goal, Activity Type aqp-wl-wedxz/atzvu-nr-szu -- Transfer Train Goal, [place] Level conditional independence -- Transfer Train Goal, [...] call cabello within reach, Hourly rounding by RN/LEGAL CONSULTANT. Bed alarm / Chair alarm. Patient-specific [...] Smith MD - 08/15/2017 6:28 PM EST [facility] Operative Note Patient Name: Gregory Hoang : [id number] MR#: [id number] Case Date: 08/09/2017 Surgeon: Surgeon(s) and Role: [...] 2.5x80 5. Completion RLE angiogram 6. L BENEFITS ASSISTANT angiogram 7. Mynx closure Precautions/Restrictions: fall, sternal [...] other (see comments) (or swing bed) Pager: [phone] BASSAM ELIAS, PT 08/14/2017 Inpatient Physical Therapy [...] to Achieve by discharge Gait Training Goal, [place] Level conditional independence;set up required Gait Training [...] facilities over the weekend except for [facility]. CM spoke with [facility] KANWAL Sandhu RN who said that they do not anticipate any beds over the weekend. Reviewed with patient/ that they need to be aware that patient will need to take the first bed offered at the facilities that they make referrals to. Their choices are: 1- [facility] PHONE: [phone] FAX: [phone] 2- [facility] ([facility]) [address] [place] [address] 3- [facility]) [address] [place] [address] I have discussed Medicare/Private Insurance [...] RS/CM on Wednesday to follow-up. Covering pager #[phone] for today. Plan of Care - Henrique [...] with additional findings of pseudoaneurysm on R BENEFITS ASSISTANT and bilateral anterior tibial artery occlusions. Was [...] an outpatient once discharged. Have patient call [phone] to set up an appointment. Follow-up: Dermatology will sign-off for now. Please do not hesitate to contact us if you have any questions orconcerns. Impression and Recommendations discussed with primary team on 08/13/2017. Karo Henderson MD Resident in Dermatology Section of Dermatology, Department of Surgery [facility] Pager [phone] Patient seen and evaluated with staff Yolk Spray Drier: Halima Cordero MD Section of Dermatology [facility] Level of Resident Supervision: Direct Supervision (The [...] 2.5x80 5. Completion RLE angiogram 6. L BENEFITS ASSISTANT angiogram 7. Mynx closure Active Non-Hospital Problems [...] home with home health ([facility] PT&OT) Pager: [phone] YASIR TELLO OT 08/12/2017 Occupational Therapy Rehabilitation [...] 2.5x80 5. Completion RLE angiogram 6. L BENEFITS ASSISTANT angiogram 7. Mynx closure Past Medical History: [...] with 24/7 assistance and maximal services) Pager: [phone] NICHOLAS MORA, JESSIE 08/12/2017 Physical Therapy Rehabilitation [...] sit/sit to supine -- Bed Mobility Goal, [place] Level independent -- Bed Mobility Goal, Outcome Achieved -- goal ongoing Goal: Gait Training Goal Stand Alone Therapy Goal Outcome: Ongoing (Interventions Implemented as Appropriate) 08/11/17 1310 08/12/17 1510 Gait Training Goal Gait Training Goal, Date Established 08/11/17 -- Gait Training Goal, Time to Achieve 5 - 7 days -- Gait Training Goal, [place] Level conditional independence -- Gait Training Goal, [...] days -- Transfer Training Goal, Activity Type wbc-ox-aihhp/hhhpd-nj-lko -- Transfer Train Goal, [place] Level conditional independence -- Transfer Training Goal, [...] Smith MD - 08/11/2017 2:52 PM EST [facility] Operative Note Patient Name: Gregory Hoang : [id number] MR#: [id number] Case Date: 08/11/2017 Surgeon: Surgeon(s) and Role: [...] 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 Completion RLE angiogram 6. L BENEFITS ASSISTANT angiogram 7. Mynx closure He is very [...] Anticipated Discharge Disposition: inpatient rehabilitation facility Pager: [phone] LAWRENCE GONZALEZ, PT 08/11/2017 Physical Therapy Rehabilitation [...] to sit/sit to supine Bed Mobility Goal, [place] Level independent Goal: Gait Training Goal Stand Alone Therapy Goal Outcome: Ongoing (Interventions Implemented as Appropriate) 08/11/17 1310 Gait Training Goal Gait Training Goal, Date Established 08/11/17 Gait Training Goal, Time to Achieve 5 - 7 days Gait Training Goal, [place] Level conditional independence Gait Training Goal, Assist [...] 7 days Transfer Training Goal, Activity Type ifc-bc-qzgqb/kaqzu-ig-pto Transfer Train Goal, [place] Level conditional independence Plan of Care - [...] call cabello within reach, Hourly rounding by RN/LEGAL CONSULTANT. Bed alarm / Chair alarm. ? [...] 04/05/2013 Hospitalizations Within the Past 30 Days: [facility] 07/20/2017 Anticipated Length Of Stay (If known): Expected Length of Hospitalization: 5-7 days2-3 days Current Decision-Making Capacity: Alert and oriented x 4 Advance Care Planning: on file Kisha Hoang [facility] [phone] Current Coping/Education/Information Needs: pt and spouse state [...] Health/Prescription Coverage: Primary Insurance: MEDICARE Secondary Insurance: [employer] [place] Prescription Coverage: See above Preferred Pharmacy: [facility] Other: N/A Primary Care Provider: Lovely Vicente MD [phone] Patient/Caregiver Goals of Treatment: Patient plans to [...] of care planning. Kaitlin Saha RN Pager: [phone] Plan of Care - Melba Jaramillo RN [...] Overview Goal: Plan of Care Review 08/08/17 2534 Coping/Psychosocial Plan Of Care Reviewed With patient [...] call cabello within reach, Hourly rounding by RN/LEGAL CONSULTANT. Bed alarm / Chair alarm. Patient-specific [...] at bedside and MD TEAM Carrying pager [phone] contacted (via Radio page) and notified of [...] Appointment Cardiology Zulma Dolan MD [facility] [place], [place] 0[address] (Wo rk) 05/28/2022 Laboratory Appointment Lab 05/28/2022 Office Visit Cardiology Zulma Dolan MD [facility] [place] [address] Liz Poole PA [facility] [place] [address] 06/10/2022 Office Visit Dermatology Laura Scherer MD [facility] DR TEJA [place], [place] [address] (Wo rk) documented as of [...] Organization Address City/State/ZIP [place] [address] (ABNORMAL) Differential, Automated (08/16/2017 5:08 AM EST) [facility] Method Time Signature Neutrophils % 73.9 % [facility] LABORATORY Neutr Abs (ANC) 5.37 1.70 - [facility] 6.10 [facility] x10(3)/[facility] LABORATORY Lymphocytes % 10.1 % [facility] LABORATORY Lymphocytes Abs 0.7 (L) 0.9 - 3.2 [facility] x10(3)/[facility] LABORATORY Monocytes % 10.1 % [facility] LABORATORY Monocyte Abs 0.7 0.3 - 0.9 [facility] x10(3)/[facility] LABORATORY Eosinophils % 5.1 % [facility] LABORATORY Eosinophils Abs 0.4 0.0 - 0.4 [facility] x10(3)/[facility] LABORATORY Basophils % 0.4 % [facility] LABORATORY Basophils Abs 0.0 0.0 - 0.1 [facility] x10(3)/[facility] LABORATORY Immature Gran % 0.40 % [...] Melisa Gran Abs 0.03 0.00 - 0.04 x10(3)/[facility] Y [facility] LABORATORY Specimen Anatomical Collection Method Collection Time Receive d Time (Source) Location / / Volume Laterality Blood specimen 08/16/2017 5:08 AM 018 5:20 (specimen) EST AM EST Resulting Agency Comment Spec In Lab Yonathan Smith MD HEMATOLOGY ORDERABLES Performing Organization Address City/State/Z[place] [address] (ABNORMAL) Hemogram (08/16/2017 5:08 AM EST) Analysis Performed At Patho logist Time Signature WBC 7.3 4.0 - 9.5 [facility] x10(3)/[facility] LABORATORY RBC 3.36 (L) 4.58 - [place] 5.54 [facility] x10(6)/[facility] LABORATORY Hemoglobin 9.7 (L) 13.7 - [facility] 16.5 gm/dL [facility] LABORATORY Hematocrit 30.3 (L) 40.5 - [place] 48.5 % [facility] LABORATORY MCV 90.2 82.9 - [facility] RYAN 93.1 [facility] LABORATORY MCH 28.9 27.5 - [place] 32.[address] [facility] LABORATORY MCHC 32.0 32.0 - [facility] 35.7 gm/dL [facility] LABORATORY Platelets 282 145 - 357 [facility] x[facility](3[facility] LABORATORY RDWSD 53.9 (H) 36.0 - [place] 45.0 [facility] LABORATORY RDWCV 16.5 (H) 11.4 - [facility] 13.8 % [facility] LABORATORY MPV 9.0 7.6 - 12.9 [facility] LABORATORY nRBC % Auto 0.0 % [facility] LABORATORY nRBC Abs Auto 0.000 0.000 - [place] 0.000 [facility] x10(3)/[facility] LABORATORY Specimen Anatomical Collection Method Collection Time Receive d Time (Source) Location / / Volume Laterality Blood specimen 08/16/2017 5:08 AM 018 5:20 (specimen) EST AM EST Resulting Agency Comment Spec In Lab Yonathan Smith MD HEMATOLOGY ORDERABLES Performing Organization Address City/State/ZIP Code Phon e Number [place] [id number] [address] (ABNORMAL) Basic Metabolic Panel (non-fasting) (08/16/2017 5:08 AM EST) P athologist Signature Glucose Lvl 141 65 - 199 [facility] mg/dL [facility] LAB[facility]ORY Comment: [...] HOSPITAL LABORATORY Estimated GFR 57 (L) >=60 [facility] LABORATORY Comment: The reported eGFR should be multiplied b y 1.2 for patients. The MDRD is not an appropriate measure o f renal function for patients with body mass extremes or in patients with acute kidney failure. http://[employer]/DHnkdep http://[employer]/DHMCnkf Specimen Anatomical Collection Method Collection Time Receive d Time (Source) Location / / Volume Laterality Blood specimen 08/16/2017 5:08 AM 018 5:20 (specimen) EST AM EST Resulting Agency Comment Spec In Lab Yonathan Smith MD CHEMISTRY ORDERABLES Performing Organization Address City/State/ZIP [place] [address] (ABNORMAL) Prothrombin Time (08/16/2017 [...] [facility]/ZIP Code Phon e Number [address] POCT Glucose (08/16/2017 4:09 AM EST) athologist Signature POC Glucose 147 65 - 199 [facility] mg/dL [facility] LABORATORY [...] [facility]/ZIP Code Phon e Number [address] POCT Glucose (08/15/2017 11:56 PM EST) athologist Signature POC Glucose 176 65 - 199 [facility] mg/dL [facility] LABORATORY [...] [facility]/ZIP Code Phon e Number [address] POCT Glucose (08/15/2017 8:05 PM EST) athologist Signature POC Glucose 136 65 - 199 [facility] mg/dL [facility] [...] Organization Address City/State/[place] [address] (ABNORMAL) POCT Glucose (08/15/2017 4:50 PM EST) athologist Signature POC Glucose 232 (H) 65 - 199 [facility] mg/dL [facility] LABORATORY [...] Organization Address City/State/[place] [address] POCT Glucose (08/15/2017 12:04 PM EST) athologist Signature POC Glucose 135 65 - 199 [facility] mg/dL [facility] [...] Organization Address City/State/[place] [address] POCT Glucose (08/15/2017 7:36 AM EST) P athologist Signature POC Glucose 124 65 - 199 [facility] mg/dL [facility] LABORATORY Comment: [...] Organization Address City/State/ZIP [place] [address] (ABNORMAL) Differential, Automated (08/15/2017 6:22 AM EST) Patholo gist Method Time Signature Neutrophils % 76.1 % [facility] LABORATORY Neutr Abs (ANC) 6.62 (H) 1.70 - [facility] 6.10 [facility] x10(3)/[facility] L LABORATORY Lymphocytes % 9.3 % [facility] LABORATORY Lymphocytes Abs 0.8 (L) 0.9 - 3.2 [facility] x10(3)/[facility] LABORATORY Monocytes % 9.4 % [facility] LABORATORY Monocyte Abs 0.8 0.3 - 0.9 [facility] x10(3)/[facility] LABORATORY Eosinophils % 4.0 % [facility] Eosinophils Abs 0.4 0.0 - 0.4 [facility] x10(3)/[facility] LABORATORY Basophils % 0.6 % [facility] Basophils Abs 0.0 0.0 - 0.1 [facility] x10(3)/[facility] LABORATORY Immature Gran % 0.60 % [...] Gran Abs 0.05 (H) 0.00 - 0.04 x10(3)/[facility] LABORATORY Specimen Anatomical Collection Method Collection Time Receive d Time (Source) Location / / Volume Laterality Blood specimen 08/15/2017 6:22 AM 018 6:33 (specimen) EST AM EST Resulting Agency Comment Spec In Lab Yonathan Smith MD HEMATOLOGY ORDERABLES Performing Organization Address City/State/ZIP [place] [address] (ABNORMAL) Hemogram (08/15/2017 6:22 AM EST) Analysis Performed At Patho logist Time Signature WBC 8.7 4.0 - 9.5 [facility] x10(3)/[facility] LABORATORY RBC 3.21 (L) 4.58 - [facility].54 [facility] x10(6)/[facility] LABORATORY Hemoglobin 9.1 (L) 13.7 - [facility] 16.5 gm/dL [facility] Hematocrit 29.0 (L) 40.5 - [facility] 48.5 % [facility] MCV 90.3 82.9 - [facility] 93.1 [facility] LABORATORY MCH 28.3 27.5 - [facility] [address] [facility] MCHC 31.4 (L) 32.0 - [facility] 35.7 gm/dL [facility] Platelets 254 145 - 357 [facility] x10(3)/[facility] LABORATORY RDWSD 53.9 (H) 36.0 - [facility] 45.0 [facility] LABORATORY RDWCV 16.3 (H) 11.4 - [facility] 13.8 % [facility] MPV 8.8 7.6 - 12.9 [facility] LABORATORY nRBC % Auto 0.0 % [facility] nRBC Abs Auto 0.000 0.000 - [place] [facility] 0.000 [facility] x10(3)/[facility] LABORATORY Specimen Anatomical Collection Method Collection Time Receive d Time (Source) Location / / Volume Laterality Blood specimen 08/15/2017 6:22 AM 018 6:33 (specimen) EST AM EST Resulting Agency Comment Spec In Lab Yonathan Smith MD HEMATOLOGY ORDERABLES Performing Organization Address City/State/Z[place] [address] (ABNORMAL) Basic Metabolic Panel (non-fasting) (08/15/2017 6:22 AM EST) P athologist Signature Glucose Lvl 118 65 - 199 [facility] mg/dL [facility] Comment: [...] [facility] Estimated GFR >60 >=60 [facility] Comment: The reported eGFR should be multiplied b y 1.2 for patients. The MDRD is not an appropriate measure o f renal function for patients with body mass extremes or in patients with acute kidney failure. http://[employer]/DHnkdep http://[employer]/DHMCnkf Specimen Anatomical Collection Method Collection Time Receive d Time (Source) Location / / Volume Laterality Blood specimen 08/15/2017 6:22 AM 018 6:33 (specimen) EST AM EST Resulting Agency Comment Spec In Lab Yonathan Smith MD CHEMISTRY ORDERABLES Performing Organization Address City/State/[place] [address] (ABNORMAL) Prothrombin Time (08/15/2017 [...] [facility] [address] POCT Glucose (08/15/2017 4:33 AM EST) athologist Signature POC Glucose 164 65 - 199 [facility] mg/dL [facility]ORY [...] Organization Address City/State/[place] [address] POCT Glucose (08/15/2017 12:12 AM EST) athologist Signature POC Glucose 89 65 - 199 [facility] mg/dL [facility]ORY [...] Organization Address City/State/[place] [address] (ABNORMAL) POCT Glucose (08/14/2017 [...] Organization Address City/State/[place] [address] POCT Glucose (08/14/2017 5:11 PM EST) athologist Signature POC Glucose 174 65 - 199 [facility] mg/dL [facility] [...] Organization Address City/State/[place] [address] POCT Glucose (08/14/2017 12:10 PM EST) athologist Signature POC Glucose 141 65 - 199 [facility] mg/dL [facility] [...] Organization Address City/State/[place] [address] POCT Glucose (08/14/2017 8:07 AM EST) P athologist Signature POC Glucose 158 65 - 199 [facility] mg/[facility]ORY [...] Organization Address City/State/[place] [address] (ABNORMAL) Differential, Automated (08/14/2017 4:52 AM EST) Patholo gist Method Time Signature Neutrophils % 78.6 % [facility] Neutr Abs (ANC) 7.70 (H) 1.70 - [facility] 6.10 [facility] x10(3)/[facility] L LABORATORY Lymphocytes % 7.8 % [facility] Lymphocytes Abs 0.8 (L) 0.9 - 3.2 [facility] x10(3)/[facility] LABORATORY Monocytes % 8.8 % [facility] Monocyte Abs 0.9 0.3 - 0.9 [facility] x10(3)/[facility] LABORATORY Eosinophils % 4.0 % [facility] Eosinophils Abs 0.4 0.0 - 0.4 [facility] x10(3)/[facility] LABORATORY Basophils % 0.5 % [facility] Basophils Abs 0.0 0.0 - 0.1 [facility] x10(3)/[facility] LABORATORY Immature Gran % 0.30 % [...] 0.04 x10(3)/[facility] Y [facility] LABOR[facility]ORY Specimen Anatomical Collection Method Collection Time Receive d Time (Source) Location / / Volume Laterality Blood specimen 08/14/2017 4:52 AM 018 5:08 (specimen) EST AM EST Resulting Agency Comment Spec In Lab Yonathan Smith MD HEMATOLOGY ORDERABLES Performing Organization Address City/State/[place] [address] (ABNORMAL) Hemogram (08/14/2017 4:52 AM EST) Analysis Performed At Patho logist Time Signature WBC 9.8 (H) 4.0 - 9.5 [facility] x10(3)/[facility] LABORATORY RBC 3.32 (L) 4.58 - [facility] 5.54 [facility] x10(6)/[facility] LABORATORY Hemoglobin 9.5 (L) 13.7 - [facility] 16.5 gm/dL [facility] Hematocrit 30.3 (L) 40.5 - [facility] 48.5 % [facility] MCV 91.3 82.9 - [facility] 93.1 [facility] LABORATORY MCH 28.6 27.5 - [facility] [address] [facility] MCHC 31.4 (L) 32.0 - [facility] 35.7 gm/dL [facility] Platelets 263 145 - 357 [facility] x10(3)/[facility] LABORATORY RDWSD 54.8 (H) 36.0 - [place] [facility] 45.0 [facility] LABORATORY RDWCV 16.5 (H) 11.4 - [facility] 13.8 % [facility] MPV 9.1 7.6 - 12.9 [facility] LABORATORY nRBC % Auto 0.0 % [facility] nRBC Abs Auto 0.000 0.000 - [facility] 0.000 [facility] x10(3)/[facility] LABORATORY Specimen Anatomical Collection Method Collection Time Receive d Time (Source) Location / / Volume Laterality Blood specimen 08/14/2017 4:52 AM 018 5:08 (specimen) EST AM EST Resulting Agency Comment Spec In Lab Yonathan Smith MD HEMATOLOGY ORDERABLES Performing Organization Address City/State/Z[place] [address] (ABNORMAL) Prothrombin Time (08/14/2017 [...] Organization Address City/State/[place] [address] (ABNORMAL) Basic Metabolic Panel (non-fasting) (08/14/2017 4:52 AM EST) P athologist Signature Glucose Lvl 135 65 - 199 [facility] mg/dL [facility] Comment: [...] HOSPITAL LAB[facility]ORY Estimated GFR 52 (L) >=60 [facility] Comment: The reported eGFR should be multiplied b y 1.2 for patients. The MDRD is not an appropriate measure o f renal function for patients with body mass extremes or in patients with acute kidney failure. http://[employer]/DHnkdep http://[employer]/DHnkf Specimen Anatomical Collection Method Collection Time Receive d Time (Source) Location / / Volume Laterality Blood specimen 08/14/2017 4:52 AM 018 5:08 (specimen) EST AM EST Resulting Agency Comment Spec In Lab Yonathan Smith MD CHEMISTRY ORDERABLES Performing Organization Address City/State/Z[place] [address] POCT Glucose (08/14/2017 3:56 AM EST) P athologist Signature POC Glucose 135 65 - 199 [facility] mg/dL [facility] Comment: [...] Address City/State/ZIP Code Phon e Number [address] POCT Glucose (08/13/2017 11:13 [...] [facility]/[place] [address] (ABNORMAL) POCT Glucose (08/13/2017 [...] Organization Address City/State/[place] [address] POCT Glucose (08/13/2017 4:02 PM EST) athologist Signature POC Glucose 145 65 - 199 [facility] mg/dL [facility] [...] Organization Address City/State/[place] [address] POCT Glucose (08/13/2017 11:31 AM EST) athologist Signature POC Glucose 179 65 - 199 [facility] mg/dL [facility] LABORATORY [...] [facility]/[place] [address] (ABNORMAL) POCT Glucose (08/13/2017 10:16 AM EST) athologist Signature POC Glucose 211 (H) 65 - 199 [facility] mg/dL [facility]ORY [...] [facility]/[place] [address] JULIAN, legs, multiple levels (08/13/2017 7:42 AM EST) Component Value Ref Test Analysis Performed At Patholo gist Range Method Time Signature VB Text Department: Vascular Surgery Lab VASCUBASE Report Patient: [id number] (GREGORY HOANG) CPT: 98231 ICD10: I99.8 Referring Physician: YONATHAN SMITH ?? Indications: s/p R 1,2,3 toe amps with red left foot, need n ew baseline Diabetes mellitus: yes ICD10 Diagnosis Code: I99.8 Findings: Right ?Pressure (mm Hg) ?? JULIAN ??Waveform ?TBI ?? Brachial Artery ?138 ? Dorsalis Pedis (Ankle) Arter y ?132 ? 0.94 ??[place]- Biphasic ? Posterior Tibial (Ankle) Art anila ??154 ? 1.10 ??[place]-Biphasic ? Fourth Toe ? 67 ? 0.48 [...] Signature POC Glucose 156 65 - 199 [facility] mg/dL [facility] Comment: [...] City/State/ZIP Code Phon e Number [place] [id number] [address]OS[address] LAB[address]ORY Drive (ABNORMAL) Differential, Automated (08/13/2017 5:33 AM EST) [facility] Method Time Signature Neutrophils % 77.8 % [facility] Neutr Abs (ANC) 7.83 (H) 1.70 - [facility] 6.10 [facility] x10(3)/[facility] L LABORATORY Lymphocytes % 8.4 % [facility] Lymphocytes Abs 0.8 (L) 0.9 - 3.2 [facility] x10(3)/[facility] LABORATORY Monocytes % 8.3 % [facility] Monocyte Abs 0.8 0.3 - 0.9 [facility] x10(3)/[facility] LABORATORY Eosinophils % 4.6 % [facility] Eosinophils Abs 0.5 (H) 0.0 - 0.4 [facility] x10(3)/[facility] LABORATORY Basophils % 0.5 % [facility] Basophils Abs 0.0 0.0 - 0.1 [facility] x10(3)/[facility] LABORATORY Immature Gran % 0.40 % [...] 0.04 x10(3)/[facility]L [facility] LABORATORY Specimen Anatomical Collection Method Collection Time Receive d Time (Source) Location / / Volume Laterality Blood specimen 08/13/2017 5:33 AM 018 6:04 (specimen) EST AM EST Resulting Agency Comment Spec In Lab Yonathan Smith MD HEMATOLOGY ORDERABLES Performing Organization Address City/State/Z[place] [address] (ABNORMAL) Hemogram (08/13/2017 5:33 AM EST) Analysis Performed At Patho logist Time Signature WBC 10.1 (H) 4.0 - 9.5 [facility] x10(3)/[facility] LABORATORY RBC 3.21 (L) 4.58 - [facility] 5.54 [facility] x10(6)/[facility] LABORATORY Hemoglobin 9.2 (L) 13.7 - [facility] 16.5 gm/dL [facility] Hematocrit 29.6 (L) 40.5 - [facility] 48.5 % [facility] MCV 92.2 82.9 - [facility] 93.1 [facility] LABORATORY MCH 28.7 27.5 - [facility] [facility] MCHC 31.1 (L) 32.0 - [facility] 35.7 gm/dL [facility] Platelets 263 145 - 357 [facility] x10(3)/[facility] LABORATORY RDWSD 54.8 (H) 36.0 - [facility] 45.0 [facility] LABORATORY RDWCV 16.4 (H) 11.4 - [facility] 13.8 % [facility] MPV 9.2 7.6 - 12.9 [facility] LABORATORY nRBC % Auto 0.0 % [facility] nRBC Abs Auto 0.000 0.000 - [facility] 0.000 [facility] x10(3)/[facility] LABORATORY Specimen Anatomical Collection Method Collection Time Receive d Time (Source) Location / / Volume Laterality Blood specimen 08/13/2017 5:33 AM 018 6:04 (specimen) EST AM EST Resulting Agency Comment Spec In Lab Yonathan Smith MD HEMATOLOGY ORDERABLES Performing Organization Address City/State/Z[place] [address] (ABNORMAL) Prothrombin Time (08/13/2017 [...] Organization Address City/State/[place] [address] (ABNORMAL) Basic Metabolic Panel (non-fasting) (08/13/2017 5:33 AM EST) athologist Signature Glucose Lvl 126 65 - 199 [facility] mg/dL [facility] Comment: [...] [facility] Estimated GFR >60 >=60 [facility] Comment: The reported eGFR should be multiplied b y 1.2 for patients. The MDRD is not an appropriate measure o f renal function for patients with body mass extremes or in patients with acute kidney failure. http://[employer]/DHnkdep http://[employer]/DHMCnkf Specimen Anatomical Collection Method Collection Time Receive d Time (Source) Location / / Volume Laterality Blood specimen 08/13/2017 5:33 AM 018 6:04 (specimen) EST AM EST Resulting Agency Comment Spec In Lab Yonathan Smith MD CHEMISTRY ORDERABLES Performing Organization Address City/[facility]/ZIP Code Phon e Number [address] POCT Glucose (08/13/2017 4:29 AM EST) athologist Signature POC Glucose 111 65 - 199 [facility] mg/dL [facility]ORATORY [...] [facility]/ZIP Code Phon e Number [address] POCT Glucose (08/12/2017 11:28 PM EST) athologist Signature POC Glucose 164 65 - 199 [facility] mg/dL [facility]ORATORY [...] [facility]/[place] [address] (ABNORMAL) POCT Glucose (08/12/2017 [...] Address City/State/ZIP Code Phon e Number [address] POCT Glucose (08/12/2017 4:24 PM EST) athologist Signature POC Glucose 161 65 - 199 [facility] mg/dL [facility] [...] Organization Address City/State/[place] [address] POCT Glucose (08/12/2017 12:00 PM EST) athologist Signature POC Glucose 167 65 - 199 [facility] mg/dL [facility] [...] Organization Address City/State/[place] [address] POCT Glucose (08/12/2017 7:25 AM EST) P athologist Signature POC Glucose 152 65 - 199 [facility] mg/dL [facility] Comment: [...] City/State/ZIP Code Phon e Number [place] [id number]OSPITAL LAB[address]ORY Drive (ABNORMAL) Differential, Automated (08/12/2017 6:29 AM EST) Patholo gist Method Time Signature Neutrophils % 78.7 % [facility] Neutr Abs (ANC) 7.94 (H) 1.70 - [facility] 6.10 [facility] x10(3)/[facility] LABORATORY Lymphocytes % 8.8 % [facility] Lymphocytes Abs 0.9 0.9 - 3.2 [facility] x10(3)/[facility] LABORATORY Monocytes % 7.8 % [facility] Monocyte Abs 0.8 0.3 - 0.9 [facility] x10(3)/[facility] LABORATORY Eosinophils % 3.9 % [facility] Eosinophils Abs 0.4 0.0 - 0.4 [facility] x10(3)/[facility] LABORATORY Basophils % 0.3 % [facility] Basophils Abs 0.0 0.0 - 0.1 [facility] x10(3)/[facility] LABORATORY Immature Gran % 0.50 % [...] Gran Abs 0.05 (H) 0.00 - 0.04 x10(3)/[facility] LABORATORY Specimen Anatomical Collection Method Collection Time Receive d Time (Source) Location / / Volume Laterality Blood specimen 08/12/2017 6:29 AM 018 6:38 (specimen) EST AM EST Resulting Agency Comment Spec In Lab Yonathan Smith MD HEMATOLOGY ORDERABLES Performing Organization Address City/State/Z[place] [address] (ABNORMAL) Hemogram (08/12/2017 6:29 AM EST) Analysis Performed At Patho logist Time Signature WBC 10.1 (H) 4.0 - 9.5 [facility] x10(3)/[facility] LABORATORY RBC 3.02 (L) 4.58 - [facility] 5.54 [facility] x10(6)/[facility] LABORATORY Hemoglobin 8.7 (L) 13.7 - [facility] 16.5 gm/dL [facility] Hematocrit 28.1 (L) 40.5 - [facility] 48.5 % [facility] MCV 93.0 82.9 - [facility] 93.1 [facility] LABORATORY MCH 28.8 27.5 - [facility] 32.[address] [facility] MCHC 31.0 (L) 32.0 - [facility] 35.7 gm/dL [facility] Platelets 223 145 - 357 [facility] x10(3)/[facility] LABORATORY RDWSD 56.1 (H) 36.0 - [facility] 45.0 [facility] LABORATORY RDWCV 16.4 (H) 11.4 - [facility] 13.8 % [facility] MPV 9.0 7.6 - 12.9 [facility] LABORATORY nRBC % Auto 0.0 % [facility] nRBC Abs Auto 0.000 0.000 - [facility] 0.000 [facility] x10(3)/[facility] LABORATORY Specimen Anatomical Collection Method Collection Time Receive d Time (Source) Location / / Volume Laterality Blood specimen 08/12/2017 6:29 AM 018 6:38 (specimen) EST AM EST Resulting Agency Comment Spec In Lab Yonathan Smith MD HEMATOLOGY ORDERABLES Performing Organization Address City/[facility]/[place] [address] (ABNORMAL) Prothrombin Time (08/12/2017 [...] Organization Address City/State/[place] [address] (ABNORMAL) Basic Metabolic Panel (non-fasting) (08/12/2017 6:29 AM EST) athologist Signature Glucose Lvl 151 65 - 199 [facility] mg/dL [facility] Comment: [...] [facility] Estimated GFR >60 >=60 [facility] Comment: The reported eGFR should be multiplied b y 1.2 for patients. The MDRD is not an appropriate measure o f renal function for patients with body mass extremes or in patients with acute kidney failure. http://[employer]/DHnkdep http://[employer]/DHMCnkf Specimen Anatomical Collection Method Collection Time Receive d Time (Source) Location / / Volume Laterality Blood specimen 08/12/2017 6:29 AM 018 6:38 (specimen) EST AM EST Resulting Agency Comment Spec In Lab Yonathan Smith MD CHEMISTRY ORDERABLES Performing Organization Address City/[facility]/[place] [address] POCT Glucose (08/12/2017 4:08 AM EST) athologist Signature POC Glucose 181 65 - 199 [facility] mg[facility] LABORATORY [...] [facility]/[place] [address] (ABNORMAL) POCT Glucose (08/12/2017 12:17 AM EST) athologist Signature POC Glucose 221 (H) 65 - 199 [facility] mg/dL [facility] LABORATORY [...] [facility]/[place] [address] (ABNORMAL) POCT Glucose (08/11/2017 [...] [facility]/[place] [address] POCT Glucose (08/11/2017 5:59 PM EST) athologist Signature POC Glucose 169 65 - 199 [facility] mg/dL [facility] [...] Organization Address City/State/[place] [address] (ABNORMAL) POCT Glucose (08/11/2017 [...] [facility]/ZIP Code Phon e Number [address] POCT Glucose (08/11/2017 12:04 PM EST) athologist Signature POC Glucose 182 65 - 199 [facility] mg/[facility] LABORATORY [...] [facility]/ZIP Code Phon e Number [address] POCT Glucose (08/11/2017 7:31 AM EST) athologist Signature POC Glucose 156 65 - 199 [facility] mg/[facility] LABORATORY [...] [facility]/ZIP Code Phon e Number [address] (ABNORMAL) Differential, Automated (08/11/2017 6:16 AM EST) [facility] Method Time Signature Neutrophils % 83.7 % [facility] Neutr Abs (ANC) 10.76 (H) 1.70 - [facility] 6.10 [facility] x10(3)/[facility] L LABORATORY Lymphocytes % 6.0 % [facility] Lymphocytes Abs 0.8 (L) 0.9 - 3.2 [facility] x10(3)/[facility] LABORATORY Monocytes % 7.5 % [facility] Monocyte Abs 1.0 (H) 0.3 - 0.9 [facility] x10(3)/[facility] LABORATORY Eosinophils % 2.0 % [facility] Eosinophils Abs 0.3 0.0 - 0.4 [facility] x10(3)/[facility] LABORATORY Basophils % 0.3 % [facility] Basophils Abs 0.0 0.0 - 0.1 [facility] x10(3)/[facility] LABORATORY Immature Gran % 0.50 % [...] Gran Abs 0.06 (H) 0.00 - 0.04 x10(3)/[facility] LABORATORY Specimen Anatomical Collection Method Collection Time Receive d Time (Source) Location / / Volume Laterality Blood specimen 08/11/2017 6:16 AM 018 6:24 (specimen) EST AM EST Resulting Agency Comment Spec In Lab Yonathan Smith MD HEMATOLOGY ORDERABLES Performing Organization Address City/State/Z[place] [address] (ABNORMAL) Hemogram (08/11/2017 6:16 AM EST) Analysis Performed At Patho logist Time Signature WBC 12.9 (H) 4.0 - 9.5 [facility] x10(3)/[facility] LABORATORY RBC 3.28 (L) 4.58 - [facility] 5.54 [facility] x10(6)/[facility] LABORATORY Hemoglobin 9.5 (L) 13.7 - BARBARA RYAN 16.5 gm/dL [facility] LABORATORY Hematocrit 29.8 (L) 40.5 - BARBARA DAVIS 48.5 % [facility] LABORATORY MCV 90.9 82.9 - [facility] RYAN 93.1 [facility] LABORATORY MCH 29.0 27.5 - BARBARA OLIVASCK 32.[address] [facility] LABORATORY MCHC 31.9 (L) 32.0 - BARBARA DAVIS 35.7 gm/dL [facility] LABORATORY Platelets 236 145 - 357 [facility] x10(3)/[facility] LABORATORY RDWSD 53.5 (H) 36.0 - [place] DAVIS 45.0 [facility] LABORATORY RDWCV 16.3 (H) 11.4 - [facility] RYAN 13.8 % [facility] LABORATORY MPV 8.8 7.6 - 12.9 [facility] LABORATORY nRBC % Auto 0.0 % [facility] LABORATORY nRBC Abs Auto 0.000 0.000 - [facility] RYAN 0.000 [facility] x10(3)/[facility] LABORATORY Specimen Anatomical Collection Method Collection Time Receive d Time (Source) Location / / Volume Laterality Blood specimen 08/11/2017 6:16 AM 018 6:24 (specimen) EST AM EST Resulting Agency Comment Spec In Lab Yonathan Smith MD HEMATOLOGY ORDERABLES Performing Organization Address City/State/[place] [address] (ABNORMAL) Prothrombin Time (08/11/2017 [...] Organization Address City/State/[place] [address] Basic Metabolic Panel (non-fasting) (08/11/2017 6:16 AM EST) P athologist Signature Glucose Lvl 139 65 - 199 [facility] mg/dL [facility] LABORATORY Comment: [...] [facility] LABORATORY Estimated GFR >60 >=60 [facility] LABORATORY Comment: The reported eGFR should be multiplied b y 1.2 for patients. The MDRD is not an appropriate measure o f renal function for patients with body mass extremes or in patients with acute kidney failure. http://[employer].Adrenaline Mobility/DHnkdep http://[employer]/DHMCnkf Specimen Anatomical Collection Method Collection Time Receive d Time (Source) Location / / Volume Laterality Blood specimen 08/11/2017 6:16 AM 018 6:24 (specimen) EST AM EST Resulting Agency Comment Spec In Lab Yonathan Smith MD CHEMISTRY ORDERABLES Performing Organization Address City/State/ZIP Code Phon e Number [address] POCT Glucose (08/11/2017 4:07 [...] [facility]/ZIP Code Phon e Number [address] POCT Glucose (08/10/2017 11:59 [...] Address City/State/ZIP Code Phon e Number [address] POCT Glucose (08/10/2017 8:12 [...] City/State/ZIP Code Phon e Number [place] [id number] HOSPITAL LABORATORY Drive (ABNORMAL) POCT Glucose (08/10/2017 4:42 PM EST) P athologist Signature POC Glucose 211 (H) 65 - 199 [facility] LABORATORY [...] Address City/State/ZIP Code Phon e Number [address] (ABNORMAL) Differential, Automated (08/10/2017 2:30 PM EST) Patholo gist Method Time Signature Neutrophils % 87.6 % [facility] LABORATORY Neutr Abs (ANC) 9.90 (H) 1.70 - [facility] 6.10 [facility] x10(3)/[facility] L LABORATORY Lymphocytes % 4.3 % [facility] LABORATORY Lymphocytes Abs 0.5 (L) 0.9 - 3.2 [facility] x10(3)/[facility] LABORATORY Monocytes % 6.0 % [facility] LABORATORY Monocyte Abs 0.7 0.3 - 0.9 [facility] x10(3)/[facility] LABORATORY Eosinophils % 1.1 % [facility] LABORATORY Eosinophils Abs 0.1 0.0 - 0.4 [facility] x10(3)/[facility] LABORATORY Basophils % 0.4 % [facility] LABORATORY Basophils Abs 0.0 0.0 - 0.1 [facility] x10(3)/[facility] LABORATORY Immature Gran % 0.60 % [...] Organization Address City/State/ZIP [place] [address] (ABNORMAL) Hemogram (08/10/2017 2:30 PM EST) Analysis Performed At Patho logist Time Signature WBC 11.3 (H) 4.0 - 9.5 [facility] x10(3)/[facility] LABORATORY RBC 3.13 (L) 4.58 - [facility] 5.54 [facility] x10(6)/[facility] LABORATORY Hemoglobin 8.9 (L) 13.7 - [facility]m/dL [facility] LABORATORY Hematocrit 28.4 (L) 40.5 - [facility] 48.5 % [facility] LABORATORY MCV 90.7 82.9 - [facility] 93.1 [facility] LABORATORY MCH 28.4 27.5 - [facility] 32.[address] [facility] LABORATORY MCHC 31.3 (L) 32.0 - [facility] 35.7 gm/dL [facility] LABORATORY Platelets 213 145 - 357 [facility] x10(3)/[facility] LABORATORY RDWSD 53.7 (H) 36.0 - [facility] RYAN 45.0 [facility] LABORATORY RDWCV 16.4 (H) 11.4 - [facility] RYAN 13.8 % [facility] LABORATORY MPV 8.9 7.6 - 12.9 [facility] LABORATORY nRBC % Auto 0.0 % [facility] LABORATORY nRBC Abs Auto 0.000 0.000 - [facility] [place] 0.000 [facility] x10(3)/[facility] LABORATORY Specimen Anatomical Collection Method Collection Time Receive d Time (Source) Location / / Volume Laterality Blood specimen 08/10/2017 2:30 PM 018 2:48 (specimen) EST PM EST Resulting Agency Comment Spec In Lab Yonathan Smith MD HEMATOLOGY ORDERABLES Performing Organization Address City/[facility]/ZIP Code Phon e Number [address] (ABNORMAL) POCT Glucose (08/10/2017 1:50 PM EST) athologist Signature POC Glucose 243 (H) 65 - 199 [facility] mg/dL [facility] LABORATORY [...] [facility]/ZIP Code Phon e Number [address] POCT Glucose (08/10/2017 11:21 AM EST) athologist Signature POC Glucose 156 65 - 199 [facility] mg/dL [facility] LABORATORY [...] [facility]/ZIP Code Phon e Number [address] (ABNORMAL) Differential, Automated (08/10/2017 10:28 AM EST) [facility] Time Signature Neutrophils % 85.3 % [facility] LABORATORY Neutr Abs (ANC) 9.43 (H) 1.70 - [facility] 6.10 [facility] x10(3)/[facility] L LABORATORY Lymphocytes % 5.5 % [facility] LABORATORY Lymphocytes Abs 0.6 (L) 0.9 - 3.2 [facility] x10(3)/[facility] LABORATORY Monocytes % 5.9 % [facility] LABORATORY Monocyte Abs 0.6 0.3 - 0.9 [facility] x10(3)/[facility] LABORATORY Eosinophils % 2.1 % [facility] LABORATORY Eosinophils Abs 0.2 0.0 - 0.4 [facility] x10(3)/[facility] LABORATORY Basophils % 0.4 % [facility] LABORATORY Basophils Abs 0.0 0.0 - 0.1 [facility] x10(3)/[facility] LABORATORY Immature Gran % 0.80 % [...] Gran Abs 0.09 (H) 0.00 - 0.04 x10(3)/[facility] LABORATORY Specimen Anatomical Collection Method Collection Time Receive d Time (Source) Location / / Volume Laterality Blood specimen 08/10/2017 10:28 8 (specimen) AM EST 10:35 AM EST Resulting Agency Comment Spec In Lab Yonathan Smith MD HEMATOLOGY ORDERABLES Performing Organization Address City/State/ZIP [place] [address] (ABNORMAL) Hemogram (08/10/2017 10:28 AM EST) Analysis Performed At Patho logist Time Signature WBC 11.0 (H) 4.0 - 9.5 [facility] x10(3)/[facility] LABORATORY RBC 3.02 (L) 4.58 - [facility] 5.54 [facility] x10(6)/[facility] LABORATORY Hemoglobin 8.8 (L) 13.7 - [facility] 16.5 gm/dL [facility] LABORATORY Hematocrit 28.1 (L) 40.5 - BARBAR[place] DAVIS 48.5 % [facility] LABORATORY MCV 93.0 82.9 - BARBAR[place] DAVIS 93.1 [facility] LABORATORY MCH 29.1 27.5 - BARBARA OLIVASCK 32.[address] [facility] LABORATORY MCHC 31.3 (L) 32.0 - BARBAR[place] DAVIS 35.7 gm/dL [facility] LABORATORY Platelets 207 145 - 357 BARBARA ZHAORYAN x10(3)/[facility] LABORATORY RDWSD 55.3 (H) 36.0 - [place]BAR[place] DAVIS 45.0 [facility] LABORATORY RDWCV 16.4 (H) 11.4 - [place]BAR[place] RYAN 13.8 % [facility] LABORATORY MPV 9.0 7.6 - 12.9 [facility] LAB[facility]ORY nRBC % Auto 0.0 % [facility] nRBC Abs Auto 0.000 0.000 - BARBARA DAVIS 0.000 [facility] x10(3)/[facility] LABORATORY Specimen Anatomical Collection Method Collection Time Receive d Time (Source) Location / / Volume Laterality Blood specimen 08/10/2017 10:28 8 (specimen) AM EST 10:35 AM EST Resulting Agency Comment Spec In Lab Yonathan Smith MD HEMATOLOGY ORDERABLES Performing Organization Address City/State/Z[place] [address] VS Angiogram/intervention (vascular) (08/10/2017 [...] 2.5x80 5. Completion RLE angiogram 6. L BENEFITS ASSISTANT angiogram 7. 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 - L BENEFITS ASSISTANT angriogram demonstrated: High fe moral bifurcation over the proximal half of the femoral head. L BENEFITS ASSISTANT access in the distal L BENEFITS ASSISTANT. - Closure device: Mynx Technical Procedure: ?The [...] for a 45cm 5F Destination. V18 and Kiana a nd QuickCross catheters were used to [...] bifurcation. Access appeared in the distal R BENEFITS ASSISTANT. Closure and sheath removal was performed with [...] 2.5x80 5. Completion RLE angiogram 6. L BENEFITS ASSISTANT angiogram 7. 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 - L BENEFITS ASSISTANT angriogram demonstrated: High fe moral bifurcation over the proximal half of the femoral head. L BENEFITS ASSISTANT access in the distal L BENEFITS ASSISTANT. - Closure device: Mynx Technical Procedure: The [...] for a 45cm 5F Destination. V18 and Kiana a nd QuickCross catheters were used to [...] bifurcation. Access appeared in the distal R BENEFITS ASSISTANT. Closure and sheath removal was performed with [...] (ABNORMAL) Differential, Automated (08/10/2017 5:50 AM EST) [facility] Method Time Signature Neutrophils % 80.1 % [facility] LABORATORY Neutr Abs (ANC) 9.01 (H) 1.70 - [facility] 6.10 [facility] x10(3)/[facility] LABORATORY Lymphocytes % 8.8 % [facility] LABORATORY Lymphocytes Abs 1.0 0.9 - 3.2 [facility] x10(3)/[facility] LABORATORY Monocytes % 8.3 % [facility] LABORATORY Monocyte Abs 0.9 0.3 - 0.9 [facility] x10(3)/[facility] LABORATORY Eosinophils % 2.0 % [facility] LABORATORY Eosinophils Abs 0.2 0.0 - 0.4 [facility] x10(3)/[facility] LABORATORY Basophils % 0.4 % [facility] LABORATORY Basophils Abs 0.0 0.0 - 0.1 [facility] x10(3)/[facility] LABORATORY Immature Gran % 0.40 % [...] Gran Abs 0.05 (H) 0.00 - 0.04 x10(3)/[facility] LABORATORY Specimen Anatomical Collection Method Collection Time Receive d Time (Source) Location / / Volume Laterality Blood specimen 08/10/2017 5:50 AM 018 5:59 (specimen) EST AM EST Resulting Agency Comment Spec In Lab Yonathan Smith MD HEMATOLOGY ORDERABLES Performing Organization Address City/State/[place] [address] (ABNORMAL) Hemogram (08/10/2017 5:50 AM EST) Analysis Performed At Patho logist Time Signature WBC 11.3 (H) 4.0 - 9.5 [facility] x10(3)/[facility] LABORATORY RBC 3.15 (L) 4.58 - [place] RYAN 5.54 [facility] x10(6)/[facility] LABORATORY Hemoglobin 8.9 (L) 13.7 - [facility] gm/dL [facility] LABORATORY Hematocrit 29.0 (L) 40.5 - [facility] RYAN 48.5 % [facility] LABORATORY MCV 92.1 82.9 - [facility] RYAN 93.1 [facility] LABORATORY MCH 28.3 27.5 - [facility] RYAN 32.[address] [facility] LABORATORY MCHC 30.7 (L) 32.0 - [facility] RYAN 35.7 gm/dL [facility] LABORATORY Platelets 231 145 - 357 [facility] x[facility](3[facility] RDWSD 53.9 (H) 36.0 - [facility] RYAN 45.0 [facility] LABORATORY RDWCV 16.2 (H) 11.4 - [facility] RYAN 13.8 % [facility] LABORATORY MPV 8.7 7.6 - 12.9 [facility] LABORATORY nRBC % Auto 0.0 % [facility] LABORATORY nRBC Abs Auto 0.000 0.000 - [facility] 0.000 [facility] x10(3)/[facility] LABORATORY Specimen Anatomical Collection Method Collection Time Receive d Time (Source) Location / / Volume Laterality Blood specimen 08/10/2017 5:50 AM 018 5:59 (specimen) EST AM EST Resulting Agency Comment Spec In Lab Yonathan Smith MD HEMATOLOGY ORDERABLES Performing Organization Address City/State/Z[place] [address] (ABNORMAL) Basic Metabolic Panel (non-fasting) (08/10/2017 5:50 AM EST) P athologist Signature Glucose Lvl 135 65 - 199 [facility] mg/dL [facility] LABORATORY Comment: [...] [facility] Estimated GFR >60 >=60 [facility] LABORATORY Comment: The reported eGFR should be multiplied b y 1.2 for patients. The MDRD is not an appropriate measure o f renal function for patients with body mass extremes or in patients with acute kidney failure. http://[employer]/DHnkdep http://[employer]/DHMCnkf Specimen Anatomical Collection Method Collection Time Receive d Time (Source) Location / / Volume Laterality Blood specimen 08/10/2017 5:50 AM 018 5:59 (specimen) EST AM EST Resulting Agency Comment Spec In Lab Yonathan Smith MD CHEMISTRY ORDERABLES Performing Organization Address [facility] [place] [address] (ABNORMAL) Prothrombin Time (08/10/2017 [...] Performing Organization Address City/[facility] [place] [address] (ABNORMAL) POCT Glucose (08/10/2017 4:01 AM EST) athologist Signature POC Glucose 206 (H) 65 - 199 [facility] mg/dL [facility] LABORATORY Comment: [...] Address City/State/ZIP Code Phon e Number [address] POCT Glucose (08/10/2017 2:01 AM EST) athologist Signature POC Glucose 188 65 - 199 [place] ZHAORYAN mg/dL [facility] [...] [facility]/[place] [address] (ABNORMAL) POCT Glucose (08/09/2017 [...] Organization Address City/State/[place] [address] POCT Glucose (08/09/2017 8:55 PM EST) athologist Signature POC Glucose 182 65 - 199 [place] ZHAORYAN mg/dL [facility] [...] [facility]/[place] [address] (ABNORMAL) APTT (08/09/2017 6:42 PM EST) athologist Signature PTT 90 (H) 25 - 35 sec [facility] LABORATORY Comment: The recommended therapeutic range for fu ll dose, unfractionated heparin at [facility] is 80 ? 114 [...] [facility]/[place] [address] POCT Glucose (08/09/2017 4:41 PM EST) athologist Signature POC Glucose 195 65 - 199 [facility] mg/dL [facility] LABORATORY [...] [facility]/[place] [address] POCT Glucose (08/09/2017 12:29 PM EST) athologist Signature POC Glucose 140 65 - 199 [facility] mg/dL [facility] LABORATORY Comment: Supplemental ranges: <140 mg/dL before meals <180 mg/dL all other times of the day Specimen Anatomical Collection Method Collection Time Receive d Time (Source) Location / / Volume Laterality Blood specimen 08/09/2017 12:29 8 (specimen) PM EST 12:29 PM EST Yonathan Smith MD POINT OF CARE TEST ORDERABLE S Performing Organization Address [facility]/ZIP Code Phon e Number [address] POCT Glucose (08/09/2017 9:59 AM EST) P athologist Signature POC Glucose 135 65 - 199 [facility] mg/dL [facility] LABORATORY Comment: Supplemental ranges: <140 mg/dL before meals <180 mg/dL all other times of the day Specimen Anatomical Collection Method Collection Time Receive d Time (Source) Location / / Volume Laterality Blood specimen 08/09/2017 9:59 AM 018 9:59 (specimen) EST AM EST Yonathan Smith MD POINT OF CARE TEST ORDERABLE S Performing Organization Address [facility]/ZIP Code Phon e Number [address] Specimen to Pathology (08/09/2017 [...] [facility]/[place] [address] Surgical Pathology Report (08/09/2017 8:40 AM EST) Component Value Ref Test Analysis Performed At Patholo gist Range Method Time Signature Surgical [id number] ? Location: [facility]; [facility]; A [facility] Report The signing pathologist has (i) [...] Henrique Flower Verified: ??08/13/2017 ?Pathologist Performed at: ??-[facility] Dept. of Pathology, [place], [place] CLINICAL INFORMATION Specimen Submitted: A [...] Organization Address City/State/ZIP [place] [address] Anaerobic Culture (08/09/2017 8:30 AM EST) [facility] [email or web address] Method Time Signature Anaerobic No anaerobic [facility] Culture organisms [facility] LABORATORY Specimen Anatomical Collection Method Collection [...] [facility]/[place] [address] (ABNORMAL) Abscess/Wound Aspirate Culture (08/09/2017 8:30 AM EST) [facility] Method Time Signature Abscess/Wound Moderate mixed [facility] Aspirate bacterial [facility] Culture morphotypes [facility] normal LABORATORY cutaneous leroy (A) Gram Stain Rare White Blood Cells [place] Few Gram Positive Cocci in pairs [facility] () [facility] LABORATORY Organism Gram Positive [facility] Cocci in pairs [facility] () [facility] LABORATORY Specimen Anatomical Collection [...] [facility]/ZIP Code Phon e Number [place] [id number] HOSPITAL [address]ORY [address] POCT Glucose (08/09/2017 4:28 AM EST) P athologist Signature POC Glucose 128 65 - 199 [facility] mg/dL [facility] LABORATORY [...] Organization Address City/State/[place] [address] ABORH Recheck Status (08/09/2017 1:10 AM EST) [facility] Method Time Signature ABORH Type Completed [facility] LABORATORY Specimen Anatomical Collection Method Collection Time Receive d Time (Source) Location / / Volume Laterality Blood specimen 08/09/2017 1:10 AM 018 1:35 (specimen) EST AM EST Resulting Agency Comment Spec In Lab Yonathan Smith MD BLOOD BANK ORDERABLES Performing Organization Address City/[facility]/[place] [address] Antibody screen (08/09/2017 1:10 AM EST) [facility] Method Time Signature Ab Screen Negative [facility] LABORATORY Expires at 08/12/2017 [facility] [id number] on: [facility] LABORATORY Specimen Anatomical Collection Method Collection Time Receive d Time (Source) Location / / Volume Laterality Blood specimen 08/09/2017 1:10 AM 018 1:35 (specimen) EST AM EST Resulting Agency Comment Spec In Lab Yonathan Smith MD BLOOD BANK ORDERABLES Performing Organization Address City/[facility]/[place] [address] ABO/Rh Typing (08/09/2017 1:10 [...] [facility]/[place] [address] (ABNORMAL) APTT (08/09/2017 1:10 AM EST) P athologist Signature PTT 86 (H) 25 - 35 sec [facility] LABORATORY Comment: The recommended therapeutic range for fu ll dose, unfractionated heparin at [facility] is 80 ? 114 [...] Organization Address City/State/ZIP [place] [address] (ABNORMAL) Differential, Automated (08/09/2017 1:10 AM EST) [facility] gist Method Time Signature Neutrophils % 76.2 % [facility] LABORATORY Neutr Abs (ANC) 8.59 (H) 1.70 - [facility] 6.10 [facility] x10(3)/[facility] LABORATORY Lymphocytes % 11.0 % [facility] LABORATORY Lymphocytes Abs 1.2 0.9 - 3.2 [facility] x10(3)/[facility] LABORATORY Monocytes % 8.4 % [facility] LABORATORY Monocyte Abs 1.0 (H) 0.3 - 0.9 [facility] x10(3)/[facility] LABORATORY Eosinophils % 3.5 % [facility] LABORATORY Eosinophils Abs 0.4 0.0 - 0.4 [facility] x10(3)/[facility] LABORATORY Basophils % 0.5 % [facility] LABORATORY Basophils Abs 0.1 0.0 - 0.1 [facility] x10(3)/[facility] LABORATORY Immature Gran % 0.40 % [...] Gran Abs 0.05 (H) 0.00 - 0.04 x10(3)/[facility] LABORATORY Specimen Anatomical Collection Method Collection Time Receive d Time (Source) Location / / Volume Laterality Blood specimen 08/09/2017 1:10 AM 018 1:19 (specimen) EST AM EST Resulting Agency Comment Spec In Lab Yonathan Smith MD HEMATOLOGY ORDERABLES Performing Organization Address City/State/ZIP [place] [address] (ABNORMAL) Hemogram (08/09/2017 1:10 AM EST) Analysis Performed At Patho logist Time Signature WBC 11.3 (H) 4.0 - 9.5 [facility] x10(3)/[facility] LABORATORY RBC 3.47 (L) 4.58 - [facility] 5.54 [facility] x10(6)/[facility] LABORATORY Hemoglobin 10.0 (L) 13.7 - [facility] 16.5 gm/dL [facility] LABORATORY Hematocrit 31.9 (L) 40.5 - [facility] 48.5 % [facility] LABORATORY MCV 91.9 82.9 - [facility] 93.1 [facility] LABORATORY MCH 28.8 27.5 - [facility] RYAN [address] [facility] LABORATORY MCHC 31.3 (L) 32.0 - [facility] 35.7 gm/dL [facility] LABORATORY Platelets 234 145 - 357 [facility] x10(3)/[facility] LABORATORY RDWSD 54.0 (H) 36.0 - [facility] RYAN 45.0 [facility] LABORATORY RDWCV 16.2 (H) 11.4 - [facility] 13.8 % [facility] LABORATORY MPV 8.7 7.6 - 12.9 [facility] LABORATORY nRBC % Auto 0.0 % [facility] LABORATORY nRBC Abs Auto 0.000 0.000 - [place] 0.000 [facility] x10(3)/[facility] LABORATORY Specimen Anatomical Collection Method Collection Time Receive d Time (Source) Location / / Volume Laterality Blood specimen 08/09/2017 1:10 AM 018 1:19 (specimen) EST AM EST Resulting Agency Comment Spec In Lab Yonathan Smith MD HEMATOLOGY ORDERABLES Performing Organization Address [facility] [place] [address] (ABNORMAL) Prothrombin Time (08/09/2017 [...] Smith MD HEMATOLOGY ORDERABLES Performing Organization Address [facility] [place] [address] (ABNORMAL) Basic Metabolic Panel (non-fasting) (08/09/2017 1:10 AM EST) athologist Signature Glucose Lvl 108 65 - 199 [facility] mg/dL [facility] LABORATORY Comment: [...] HOSPITAL LABORATORY Estimated GFR 45 (L) >=60 [facility] LABORATORY Comment: The reported eGFR should be multiplied b y 1.2 for patients. The MDRD is not an appropriate measure o f renal function for patients with body mass extremes or in patients with acute kidney failure. http://[employer]/DHnkdep http://[employer]/DHMCnkf Specimen Anatomical Collection Method Collection Time Receive d Time (Source) Location / / Volume Laterality Blood specimen 08/09/2017 1:10 AM 018 1:19 (specimen) EST AM EST Resulting Agency Comment Spec In Lab Yonathan Smith MD CHEMISTRY ORDERABLES Performing Organization Address City/State/ZIP Code Phon e Number [address] POCT Glucose (08/09/2017 12:05 AM EST) athologist Signature POC Glucose 128 65 - 199 [facility] mg/dL [facility] LABORATORY Comment: [...] Organization Address City/State/[place] [address] (ABNORMAL) POCT Glucose (08/08/2017 7:36 PM EST) athologist Signature POC Glucose 215 (H) 65 - 199 [facility] LABORATORY Comment: Supplemental [...] [facility]/[place] [address] (ABNORMAL) POCT Glucose (08/08/2017 6:23 PM EST) athologist Signature POC Glucose 216 (H) 65 - 199 [facility] mg/dL [facility] LABORATORY Comment: [...] [facility]/[place] [address] (ABNORMAL) APTT (08/08/2017 6:00 PM EST) athologist Signature PTT 97 (H) 25 - 35 sec [facility] LABORATORY Comment: The recommended therapeutic range for fu ll dose, unfractionated heparin at [facility] is 80 ? 114 [...] [facility]/ZIP Code Phon [place] [facility] [place] [address] POCT Glucose (08/08/2017 4:42 PM EST) athologist Signature POC Glucose 78 65 - 199 [facility] mg/dL [facility] LABORATORY [...] Organization Address City/State/[place] [address] (ABNORMAL) POCT Glucose (08/08/2017 4:01 PM EST) athologist Signature POC Glucose 58 (L) 65 - 199 [facility] mg/dL [facility] LABORATORY [...] Organization Address City/State/[place] [address] POCT Glucose (08/08/2017 11:51 AM EST) athologist Signature POC Glucose 90 65 - 199 [facility] mg/dL [facility] LABORATORY [...] Organization Address City/State/[place] [address] (ABNORMAL) APTT (08/08/2017 10:27 AM EST) athologist Signature PTT 64 (H) 25 - 35 sec [facility] LABORATORY Comment: The recommended therapeutic range for fu ll dose, unfractionated heparin at [facility] is 80 ? 114 [...] [facility]/ZIP Code Phon e Number [address] POCT Glucose (08/08/2017 8:02 AM EST) athologist Signature POC Glucose 178 65 - 199 [facility] mg/dL [facility] LABORATORY Comment: [...] [facility]/[place] [address] (ABNORMAL) APTT (08/08/2017 4:51 AM EST) athologist Signature PTT >160 25 - 35 [facility] (Critical) sec [facility] LABORATORY Comment: Called by: HOWARD, Read back by: Melba Jaramillo, Date/Time:08/08/17 05:43. The recommended therapeutic range for fu ll dose, unfractionated heparin at [facility] is 80 ? 114 [...] Organization Address City/State/Z[place] [address] (ABNORMAL) Differential, Automated (08/08/2017 4:51 AM EST) [facility] gist Method Time Signature Neutrophils % 77.9 % [facility] LABORATORY Neutr Abs (ANC) 8.17 (H) 1.70 - [facility] 6.10 [facility] x10(3)/[facility] LABORATORY Lymphocytes % 10.3 % [facility] LABORATORY Lymphocytes Abs 1.1 0.9 - 3.2 [facility] x10(3)/[facility] LABORATORY Monocytes % 7.0 % [facility] LABORATORY Monocyte Abs 0.7 0.3 - 0.9 [facility] x10(3)/[facility] LABORATORY Eosinophils % 3.6 % [facility] LABORATORY Eosinophils Abs 0.4 0.0 - 0.4 [facility] x10(3)/[facility] LABORATORY Basophils % 0.5 % [facility] LABORATORY Basophils Abs 0.0 0.0 - 0.1 [facility] x10(3)/[facility] LABORATORY Immature Gran % 0.70 % [...] Address City/State/ZIP Code Phon e Number [address] (ABNORMAL) Hemogram (08/08/2017 4:51 AM EST) Analysis Performed At Patho logist Time Signature WBC 10.5 (H) 4.0 - 9.5 [facility] x[facility](3[facility] LABORATORY RBC 3.27 (L) 4.58 - [place] 5.54 [facility] x10(6)/[facility] LABORATORY Hemoglobin 9.3 (L) 13.7 - [facility] 16.5 gm/dL [facility] LABORATORY Hematocrit 30.3 (L) 40.5 - [facility] 48.5 % [facility] LABORATORY MCV 92.7 82.9 - [facility] 93.1 [facility] LABORATORY MCH 28.4 27.5 - [place] 32.[address] [facility] LABORATORY MCHC 30.7 (L) 32.0 - [place] 35.7 gm/dL [facility] LABORATORY Platelets 252 145 - 357 [facility] x10(3)/[facility] LABORATORY RDWSD 54.6 (H) 36.0 - [place] 45.0 [facility] LABORATORY RDWCV 16.2 (H) 11.4 - [facility] RYAN 13.8 % [facility] LABORATORY MPV 9.1 7.6 - 12.9 [facility] LABORATORY nRBC % Auto 0.0 % [facility] LABORATORY nRBC Abs Auto 0.000 0.000 - [place] 0.000 [facility] x10(3)/[facility] LABORATORY Specimen Anatomical Collection Method Collection Time Receive d Time (Source) Location / / Volume Laterality Blood specimen 08/08/2017 4:51 AM 018 5:14 (specimen) EST AM EST Resulting Agency Comment Spec In Lab Yonathan Smith MD HEMATOLOGY ORDERABLES Performing Organization Address City/State/[place] [address] (ABNORMAL) Prothrombin Time (08/08/2017 [...] Organization Address City/State/[place] [address] (ABNORMAL) Basic Metabolic Panel (non-fasting) (08/08/2017 4:51 AM EST) athologist Signature Glucose Lvl 229 (H) 65 - 199 [facility] mg/dL [facility] LABORATORY Comment: [...] or in patients with acute kidney failure. http://[employer]/DHnkdep http://[employer]/DHMCnkf Specimen Anatomical Collection Method Collection Time Receive d Time (Source) Location / / Volume Laterality Blood specimen 08/08/2017 4:51 AM 018 5:14 (specimen) EST AM EST Resulting Agency Comment Spec In Lab Yonathan Smith MD CHEMISTRY ORDERABLES Performing Organization Address City/[facility]/ZIP Code Phon e Number [address] POCT Glucose (08/08/2017 4:20 AM EST) athologist Signature POC Glucose 193 65 - 199 [facility] LABORATORY [...] [facility]/ZIP Code Phon e Number [address] POCT Glucose (08/07/2017 11:11 PM EST) athologist Signature POC Glucose 124 65 - 199 [facility] mg/dL [facility] LABORATORY [...] [facility]/[place] [address] (ABNORMAL) APTT (08/07/2017 10:18 PM EST) athologist Signature PTT 114 (H) 25 - 35 sec [facility] LABORATORY Comment: The recommended therapeutic range for fu ll dose, unfractionated heparin at [facility] is 80 ? 114 [...] Organization Address City/State/[place] [address] POCT Glucose (08/07/2017 8:10 PM EST) athologist Signature POC Glucose 140 65 - 199 [facility] mg/dL [facility] LABORATORY [...] Organization Address City/State/[place] [address] POCT Glucose (08/07/2017 5:27 PM EST) athologist Signature POC Glucose 187 65 - 199 [facility] LABORATORY [...] [facility]/[place] [address] POCT Glucose (08/07/2017 3:29 PM EST) athologist Signature POC Glucose 86 65 - 199 [facility] mg/dL [facility] LABORATORY Comment: Supplemental ranges: <140 mg/dL before meals <180 mg/dL all other times of the day Specimen Anatomical Collection Method Collection Time Receive d Time (Source) Location / / Volume Laterality Blood specimen 08/07/2017 3:29 PM 018 3:29 (specimen) EST PM EST Yonathan Smith MD POINT OF CARE TEST ORDERABLE S Performing Organization Address [facility] [place] [address] (ABNORMAL) APTT (08/07/2017 2:50 PM EST) athologist [facility] PTT 60 (H) 25 - 35 sec [facility] LABORATORY Comment: The recommended therapeutic range for fu ll dose, unfractionated heparin at [facility] is 80 ? 114 [...] City/[facility]/ZIP [facility] [place] [address] (ABNORMAL) POCT Glucose (08/07/2017 2:23 PM EST) athologist Signature POC Glucose 55 (L) 65 - 199 [place] mg/dL [facility] [...] Address City/State/ZIP Code Phon e Number [address] POCT Glucose (08/07/2017 12:08 PM EST) P athologist Signature POC Glucose 77 65 - 199 [facility] mg/dL [facility] LABORATORY [...] Organization Address City/State/[place] [address] (ABNORMAL) Differential, Automated (08/07/2017 7:30 AM EST) Patholo gist Method Time Signature Neutrophils % 73.8 % [facility] LABORATORY Neutr Abs (ANC) 7.17 (H) 1.70 - [facility] 6.10 [facility] x10(3)/[facility] L LABORATORY Lymphocytes % 12.2 % [facility] LABORATORY Lymphocytes Abs 1.2 0.9 - 3.2 [facility] x10(3)/[facility] LABORATORY Monocytes % 9.0 % [facility] LABORATORY Monocyte Abs 0.9 0.3 - 0.9 [facility] x10(3)/[facility] LABORATORY Eosinophils % 3.9 % [facility] LABORATORY Eosinophils Abs 0.4 0.0 - 0.4 [facility] x10(3)/[facility] LABORATORY Basophils % 0.6 % [facility] LABORATORY Basophils Abs 0.1 0.0 - 0.1 [facility] x10(3)/[facility] LABORATORY Immature Gran % 0.50 % [...] Gran Abs 0.05 (H) 0.00 - 0.04 x10(3)/[facility] LABORATORY Specimen Anatomical Collection Method Collection Time Receive d Time (Source) Location / / Volume Laterality Blood specimen 08/07/2017 7:30 AM 018 7:45 (specimen) EST AM EST Resulting Agency Comment Spec In Lab Yonathan Smith MD HEMATOLOGY ORDERABLES Performing Organization Address City/State/ZIP Code Phon e Number [place] [id number] HOSPITAL LABORATORY Drive (ABNORMAL) Hemogram (08/07/2017 7:30 AM EST) Analysis Performed At Patho logist Time Signature WBC 9.7 (H) 4.0 - 9.5 [facility] x10(3)/[facility] LABORATORY RBC 3.54 (L) 4.58 - [facility] 5.54 [facility] x10(6)/[facility] LABORATORY Hemoglobin 9.9 (L) 13.7 - [facility] 16.5 gm/dL [facility] LABORATORY Hematocrit 32.3 (L) 40.5 - [facility] 48.5 % [facility] LABORATORY MCV 91.2 82.9 - [facility] 93.1 [facility] LABORATORY MCH 28.0 27.5 - [facility] 32.[address] [facility] LABORATORY MCHC 30.7 (L) 32.0 - [facility] 35.7 gm/dL [facility] LABORATORY Platelets 312 145 - 357 [facility] x10(3)/[facility] LABORATORY RDWSD 53.2 (H) 36.0 - [facility] 45.0 [facility] LAB[facility] RDWCV 16.0 (H) 11.4 - [facility] 13.8 % [facility] LABORATORY MPV 8.9 7.6 - 12.9 [facility] LABORATORY nRBC % Auto 0.0 % [facility] LABORATORY nRBC Abs Auto 0.000 0.000 - [facility] 0.000 [facility] x10(3)/[facility] LABORATORY Specimen Anatomical Collection Method Collection Time Receive d Time (Source) Location / / Volume Laterality Blood specimen 08/07/2017 7:30 AM 018 7:45 (specimen) EST AM EST Resulting Agency Comment Spec In Lab Yonathan Smith MD HEMATOLOGY ORDERABLES Performing Organization Address City/State/Z[place] [address] (ABNORMAL) Basic Metabolic Panel (non-fasting) (08/07/2017 7:30 AM EST) athologist Signature Glucose Lvl 80 65 - 199 [facility] mg/dL [facility] LABORATORY Comment: [...] HOSPITAL LABORATORY Estimated GFR 59 (L) >=60 [facility] LABORATORY Comment: The reported eGFR should be multiplied b y 1.2 for patients. The MDRD is not an appropriate measure o f renal function for patients with body mass extremes or in patients with acute kidney failure. http://[employer]/DHnkdep http://[employer]/[facility] MIAMInkf Specimen Anatomical Collection Method Collection Time Receive d Time (Source) Location / / Volume Laterality Blood specimen 08/07/2017 7:30 AM 018 7:45 (specimen) EST AM EST Resulting Agency Comment Spec In Lab Yonathan Smith MD CHEMISTRY ORDERABLES Performing Organization Address City/[facility]/ZIP [facility] Phon e Number [address] POCT Glucose (08/07/2017 7:27 AM EST) athologist Signature POC Glucose 81 65 - 199 [facility] mg/dL [facility] LABORATORY Comment: Supplemental ranges: <140 mg/dL before meals <180 mg/dL all other times of the day Specimen Anatomical Collection Method Collection Time Receive d Time (Source) Location / / Volume Laterality Blood specimen 08/07/2017 7:27 AM 018 7:27 (specimen) EST AM EST Yonathan Smith MD POINT OF CARE TEST ORDERABLE S Performing Organization Address City/[facility] Phon e Number [address] APTT (08/07/2017 7:04 AM EST) athologist Signature PTT 34 25 - 35 sec [facility] LABORATORY Comment: The recommended therapeutic range for fu ll dose, unfractionated heparin at [facility] is 80 ? 114 [...] Organization Address City/State/[place] [address] (ABNORMAL) Prothrombin Time (08/07/2017 [...] Organization Address City/State/[place] [address] POCT Glucose (08/07/2017 4:03 AM EST) athologist Signature POC Glucose 93 65 - 199 [facility] mg/dL [facility] LABORATORY [...] Organization Address City/State/[place] [address] POCT Glucose (08/07/2017 12:04 AM EST) athologist Signature POC Glucose 107 65 - 199 [facility] mg/[facility] LABORATORY [...] [facility]/ZIP Code Phon e Number [address] POCT Glucose (08/06/2017 7:56 PM EST) P athologist Signature POC Glucose 178 65 - 199 [facility] mg/dL [facility] LABORATORY Comment: [...] Address City/State/ZIP Code Phon e Number [address] TcPO2 (08/06/2017 2:32 PM EST) Component Value Ref Test Analysis Performed At Patholo gist Range Method Time Signature VB Text Department: Vascular Surgery Lab VASCUBASE Report Patient: [id number] (GREGORY HOANG) CPT: 0501369 ICD10: I99.8 Referring Physician: YONATHAN SMITH ?? [...] documented in this encounter Care Teams Supervisor Type Disk Quality Control Relationship Specialty Start Date End Date Lovely Vicente MD PCP - General 04/16/[address] [place] [address] [address] [place] [address] documented as of this encounter
--- OUTSIDE RECORDS SUMMARY | 2022-04-10 09:00 | XMS_ITS | Encounter Summary ---
:1945 Author Organization [facility] [place] [address] Care Team Providers Name Role Phone Lovely Vicente MD Primary Care Provider Reason for Visit Auth/Cert Specialty Diagnoses / Procedures Referred By Contact Refer red To Contact Diagnoses Critical lower limb ischemia CELLULITIS RT FOOT Procedures EMERGENCY Referral ID Status Reason Start Date Expiration Date Visits Requ ested Visits Authorized [id number] 1 1 Encounter Details Date Type Department Care Team Description 08/06/2017 Clinical Support [place] [facility] [place] foot [facility] [place] [id number] Social History Tobacco Use Types Packs/Day [...] noother symptoms except severe right foot pain. [facility] clinic called as pt on route [...] Dolan MD [facility] [address] [place], [place] [address] (Wo rk) 05/28/2022 Laboratory Appointment Lab 05/28/2022 Office Visit Cardiology Zulma Dolan MD [place] [address] Liz Poole PA [facility] [place] [address] 06/10/2022 Office Visit Dermatology Laura Scherer MD [facility] [address] [place], [place] [address] (Wo rk) documented as [...] 444 ms MUSE SYSTEM (Bezet) Calculated P [place] 44 degrees MUSE SYSTEM Calculated R [place] -31 degrees MUSE SYSTEM Calculated T [place] 106 degrees MUSE SYSTEM INTERPRETATION Normal sinus [...] disorder documented in this encounter Care Teams Milieu Manager Relationship Specialty Start Date End Date Lovely Vicente MD PCP - General 04/16/[address] [place] [address] documented as of this encounter
--- OUTSIDE RECORDS SUMMARY | 2022-04-10 09:00 | XMS_ITS | Encounter Summary ---
:1945 Author Organization [facility] [place] [address] Care Team Providers Name Role Phone Lovely Vicente MD Primary Care Provider Reason for Visit Auth/Cert Specialty Diagnoses / Procedures Referred By Contact Refer red To Contact Diagnoses Critical lower limb ischemia CELLULITIS RT FOOT Procedures EMERGENCY Referral ID Status Reason Start Date Expiration Date Visits Requ ested Visits Authorized [id number] 1 1 Encounter Details Date Type Department Care Team Description 08/09/2017 Surgery Main Operating Room Yonathan Smith AM PUTATION, Mary Hitchcock MD TRANSMETATARSAL ([facility] 12.71) [facility] DR Siddiqu[place] [address] [place] [address] [phone] Social History Tobacco Use Types Packs/Day Years [...] documented in this encounter Discharge Summaries Viry Stakrey MD - 08/16/2017 11:50 AM EST Inpatient [...] 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 Patient [...] Dorsalis Pedis (Ankle) Artery ?132 ? 0.94 ??[place] ? Posterior Tibial (Ankle) Artery ??154 ? 1.10 ??[place]has[place] ? Fourth Toe ? 67 ?0.48 ?? [...] the foot. Discharge Conditions/Prognosis: Good Discharge to: [facility] Rehab Discharge Medications: Your Medications New [...] For any problems or questions please call [phone] ZELDA Smith, business relations manager Nurse Clinician For issues on weeknights after 5pm and weekends please call [phone] and ask for the Vascular Fellow organizational psychologist. General Instructions None Future Appointments and Orders Future Appointments Provider Department Dept Phone 08/26/2017 4:00 PM Aurelia Rivera PA [facility] [place] [phone] 09/07/2017 3:00 PM LAB, THREE L Lab 3L [facility] [phone] 09/07/2017 4:00 PM Luz Prescott MD Endocrinology at [place] [phone] 09/09/2017 8:00 AM Barbra Soares APRN [facility] Management [facility] [place] [phone] Please bring a list of your current [...] For any problems or questions please call [phone] ZELDA Smith, business relations manager Nurse Clinician For issues on weeknights after 5pm and weekends please call [phone] and ask for the Vascular Fellow organizational psychologist. documented in this encounter Medications at Time [...] documented as of this encounter Progress Notes Shiirn Wolf RN - 08/16/2017 11:14 AM EST Office of Care Management Discharge Note Patient Destination: [facility] ([facility]) [address] [address] Transportation: with (at bedside) Time of Discharge: by 12 noon Level of Care: swing Patient Aware: yes Family Notified: yes Md to call report to: Yissel Quintero CHIEF PORT DIRECTOR already called RN to call report to: [phone] Shirin Wolf Office of Care Management Pager [phone] Shirin Wolf RN - 08/16/2017 10:50 AM EST [facility] has offered pt swing bed. Pt and accept bed. will transport via car. CHIEF PORT DIRECTOR Yissel Quintero aware; d/c paperwork will be completed by 12 noon. [facility] requests pt arrival by 1400 today; CHIEF PORT DIRECTOR, RN, and family aware. CHIEF PORT DIRECTOR called [facility] and was told that they prefer pt to arrive with wound vac dressing applied but clamped. CHIEF PORT DIRECTOR applied new wound vac dressing. RN has [facility] number to call report. PASSR completed; CHIEF PORT DIRECTOR paged to request provider signature in highlighted space. Indigo from [facility] notified via email that home wound vac now cancelled; [facility] has picked up from room and order cancelled. Packet started and provided to community health agent. Medicare important message explained to patient, patient signed. Copy provided to patient and signature page to OCM for inclusion in pt EMR. L Radha Powers Yoselin - 08/16/2017 10:34 AM EST Office of Care Management/Tool Grinding Technician Patient Name: Gregory Hoang : 1945 Patient has been offered a swing bed at [facility]. The patient will be transported by private transportation. No MD to MD report necessary Please call Nursing Report to [phone], ask for brattice builder. Info to accompany patient: Narcotic Prescriptions Copies of Medication Administration Records and IV sheets for past 10 days. Plan: Tool Grinding Technician will be available to the patient and Return To Factory Clerk-RN and/or Patient Care Technician for further assistance. Patient will be discharged to: [place] [id number] Radha Powers, Tool Grinding Technician Mira Truong, VAMSI - 08/15/2017 10:05 PM EST [address] Flores to ask if he wanted to hold metoprolol dose. BP 95/58. OK to hold this dose Courtney Brito - 08/15/2017 3:26 PM EST Office of Care Management(OCM)/Tool Grinding Technician(RS)/ D/C Planning re : Patient is medically ready for d/c today. RS has been in contact with [facility] to see if they could offer a bed. [facility] is still reviewing the case and need their MD to review chart prior to accepting or declining. OCM team needs to check in with [facility] tomorrow to check on status. 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 Await recommendations from PT. Covering pager #[phone]. 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 Automatic Die Cutting Machine Operator Kaitlin Saha, RN Pager #[phone] Payam Rosales - 08/13/2017 2:37 PM EST Dispatcher Motor Vehicle Encounter Note Patient Name: Gregory Hoang : [id number] MR#: [id number] Admit Date: 08/06/2017 1:41 PM Hospital Day 7 days Narrative: Visited to introduce and assess acceptance of Dispatcher Motor Vehicle services. Pt was awake, alert, oriented and in chair and family was there. Assessment:Patient coping positively with stresses of illness/hospitalization at this time. Pt says that he is hoping to get better and his family was there. Pt says that he has family care and supportand taking one day at time. Intervention and Outcome: Provided emotional support and encouraging presence. 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 A letter describing our affiliations was reviewed with them and theywere educated about their right to choose where referrals are placed. Patient requests referral to [facility] [employer]. PHONE: [phone] FAX: [phone]. And Home NPWT (Negative Pressure Wound Therapy) aka wound vac device made available to pt. Serial # confirmed. Reviewed [facility] Proof of Delivery/Assignment of Benefits Statement(POD/AOB) Form w patient or authorized agent signing on behalf of patient. Copy of POD/AOB provided to pt and other copy faxed to [employer] @ fax# [phone] Expected date of discharge: 08/12/2017. 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 Heparin gtt continues to run. Pt [...] of : 1945 AGE 72 y.o. Address: [address] [place] [address] [place] [address] (home) Mobile: Telephone Information: Referring Provider: No [...] 7.93) performed by Yuan Retana MD at [facility] OR ??? 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 Vascular resident organizational psychologist and will forward result to the team prior to rounds. 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 Patient [...] left blue toes with CTA showing R LINING MAKER pseudoaneurysm (now thrombosed) and occluded ATs bilaterally. [...] 2.5x80 5. Completion RLE angiogram 6. L LINING MAKER angiogram 7. 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 - L LINING MAKER angriogram demonstrated: High femoral bifurcation over the proximal half of the femoral head. L LINING MAKER access in the distal L LINING MAKER. - Closure device: Mynx Technical Procedure: The [...] for a 45cm 5F Destination. V18 and Corea and QuickCross catheters were used to select [...] 5F. A stationed picture of the L LINING MAKER was performed as the patient was noted to have a very high bifurcation. Access appeared in the distal R LINING MAKER. Closure and sheath removal was performed with [...] PM EST 1440 report called to 5 long branch nurse Tessa RN documented in this encounter [...] with pt and pt's spouse. Discharge to [facility]. Goal: Individualization & Mutuality Outcome: Outcome [...] sit/sit to supine -- Bed Mobility Goal, Titus Level independent -- Bed Mobility Goal, Date [...] days -- Transfer Training Goal, Activity Type awg-vi-grhmh/yeeiv-ei-ipk -- Transfer Train Goal, Titus Level conditional independence -- Transfer Train Goal, [...] call cabello within reach, Hourly rounding by RN/STOCK RAISER. Bed alarm / Chair alarm. Patient-specific fall [...] Operative Note Patient Name: Gregory Hoang : [id number] MR#: [id number] Case Date: 08/09/2017 Surgeon: Surgeon(s) and Role: [...] 2.5x80 5. Completion RLE angiogram 6. L LINING MAKER angiogram 7. Mynx closure Precautions/Restrictions: fall, sternal [...] other (see comments) (or swing bed) Pager: [phone] BASSAM ELIAS, PT 08/14/2017 Inpatient Physical Therapy [...] to Achieve by discharge Gait Training Goal, Titus Level conditional independence;set up required Gait Training [...] these facilities over the weekend except for [facility]. CM spoke with [facility] CM Drea Sandhu, VAMSI who said that they do not anticipate any beds over the weekend. Reviewed with patient/ that they need to be aware that patient will need to take the first bed offered at the facilities that they make referrals to. Their choices are: 1- [facility] PHONE: [phone] FAX: [phone] 2- [facility] ([facility]) [address] [place] [address] 3- [facility]) [address] [place] [address] I have discussed Medicare/Private Insurance [...] RS/CM on Wednesday to follow-up. Covering pager #[phone] for today. Plan of Care - Henrique [...] with additional findings of pseudoaneurysm on R LINING MAKER and bilateral anterior tibial artery occlusions. Was [...] an outpatient once discharged. Have patient call [phone] to set up an appointment. Follow-up: Dermatology will sign-off for now. Please do not hesitate to contact us if you have any questions orconcerns. Impression and Recommendations discussed with primary team on 08/13/2017. Karo Henderson MD Resident in Dermatology Section of Dermatology, Department of Surgery [facility] Pager [phone] Patient seen and evaluated with staff Gum Rolling Machine Tender: Halima Cordero MD Section of Dermatology [place] [...] Outcome: Ongoing (Interventions Implemented as Appropriate) 08/12/17 2506 Coping/Psychosocial Plan Of Care Reviewed With patient;spouse [...] 2.5x80 5. Completion RLE angiogram 6. L LINING MAKER angiogram 7. Mynx closure Active Non-Hospital Problems [...] home with home health ([facility] PT&OT) Pager: [phone] YASIR TELLO OT 08/12/2017 Occupational Therapy Rehabilitation [...] 4. Balloon angioplasty of R PT with Leeazar 2.5x80 5. Completion RLE angiogram 6. L LINING MAKER angiogram 7. Mynx closure Past Medical History: [...] with 24/7 assistance and maximal services) Pager: [phone] NICHOLAS MORA, PT 08/12/2017 Physical Therapy Rehabilitation [...] sit/sit to supine -- Bed Mobility Goal, Titus Level independent -- Bed Mobility Goal, Outcome Achieved -- goal ongoing Goal: Gait Training Goal Stand Alone Therapy Goal Outcome: Ongoing (Interventions Implemented as Appropriate) 08/11/17 1310 08/12/17 1510 Gait Training Goal Gait Training Goal, Date Established 08/11/17 -- Gait Training Goal, Time to Achieve 5 - 7 days -- Gait Training Goal, Titus Level conditional independence -- Gait Training Goal, [...] days -- Transfer Training Goal, Activity Type zsl-fv-pfdvw/mhpke-ef-tgr -- Transfer Train Goal, Titus Level conditional independence -- Transfer Training Goal, [...] Operative Note Patient Name: Gregory Hoang : [id number] MR#: [id number] Case Date: 08/11/2017 Surgeon: Surgeon(s) and Role: [...] 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 Completion RLE angiogram 6. L LINING MAKER angiogram 7. Mynx closure He is very [...] Anticipated Discharge Disposition: inpatient rehabilitation facility Pager: [phone] LAWRENCE GONZALEZ, PT 08/11/2017 Physical Therapy Rehabilitation [...] to sit/sit to supine Bed Mobility Goal, Titus Level independent Goal: Gait Training Goal Stand Alone Therapy Goal Outcome: Ongoing (Interventions Implemented as Appropriate) 08/11/17 1310 Gait Training Goal Gait Training Goal, Date Established 08/11/17 Gait Training Goal, Time to Achieve 5 - 7 days Gait Training Goal, Titus Level conditional independence Gait Training Goal, Assist [...] 7 days Transfer Training Goal, Activity Type nyy-jx-jonos/fokcp-bv-czp Transfer Train Goal, Titus Level conditional independence Plan of David DelloAnnetta [...] call cabello within reach, Hourly rounding by RN/STOCK RAISER. Bed alarm / Chair alarm. ? Patient-specific [...] Advance Care Planning: on file Kisha Hoang [facility] [phone] Current Coping/Education/Information Needs: pt and spouse state [...] Health/Prescription Coverage: Primary Insurance: MEDICARE Secondary Insurance: [employer] [place] Prescription Coverage: See above Preferred Pharmacy: [facility] Other: N/A Primary Care Provider: Lovely Vicente MD [phone] Patient/Caregiver Goals of Treatment: Patient plans to return home when medically ready Potential Needs for Transition of Care: Rehab/SNF: N/A [facility] Health[facility]. DME: pt has a cane and [...] of care planning. Kaitlin Saha RN Pager: [phone] Plan of Care - Melba Jaramillo RN [...] Overview Goal: Plan of Care Review 08/08/17 4164 Coping/Psychosocial Plan Of Care Reviewed With patient [...] call cabello within reach, Hourly rounding by RN/STOCK RAISER. Bed alarm / Chair alarm. Patient-specific fall prevention interventions for sensory deficits provided, if applicable: [X] Yes CPG GOAL OUTCOME EVALUATION: Goal: Fall Prevention-Safe Patient Handling Outcome: Ongoing (Interventions Implemented as Appropriate) 08/06/17 1700 08/06/17199908/07/17 0314 Positioning Body Position -- up in chair [...] at bedside and MD TEAM Carrying pager [phone] contacted (via Radio page) and notified of [...] Dolan MD [facility] [place], [place] [address] (Wo rk) 05/28/2022 Laboratory Appointment Lab 05/28/2022 Office Visit Cardiology Zulma Dolan MD [place] [address] Liz Poole PA [facility] [place] [address] 06/10/2022 Office Visit Dermatology Laura Scherer MD [facility] [address] [place], [place] [address] (Wo rk) documented as of [...] 160 65 - 199 [place] mg/dL [facility]OR[facility] Comment: [...] City/State/[place] [address] [facility]ATORY Drive (ABNORMAL) Differential, Automated (08/16/2017 5:08 AM EST) [facility] Method Time Signature Neutrophils % 73.9 % [facility] LABOR[facility]ORY Neutr Abs (ANC) 5.37 1.70 - [facility] 6.10 [facility] x10(3)/[facility] LABORATORY Lymphocytes % 10.1 % [facility] Lymphocytes Abs 0.7 (L) 0.9 - 3.2 [facility] x10(3)/[facility] LABORATORY Monocytes % 10.1 % [facility] Monocyte Abs 0.7 0.3 - 0.9 [facility] x10(3)/[facility] LABORATORY Eosinophils % 5.1 % [facility] Eosinophils Abs 0.4 0.0 - 0.4 [facility] x10(3)/[facility] LABORATORY Basophils % 0.4 % [facility] Basophils Abs 0.0 0.0 - 0.1 [facility] x10(3)/[facility] LABORATORY Immature Gran [...] Melisa Gran Abs 0.03 0.00 - 0.04 x10(3)/[facility] LABORATORY Specimen Anatomical Collection Method Collection Time Receive d Time (Source) Location / / Volume Laterality Blood specimen 08/16/2017 5:08 AM 018 5:20 (specimen) EST AM EST Resulting Agency Comment Spec In Lab Yonathan Smith MD HEMATOLOGY ORDERABLES Performing Organization Address City/State/[place] [address] [facility]ORY Drive (ABNORMAL) Hemogram (08/16/2017 5:08 AM EST) Analysis Performed At Patho logist Time Signature WBC 7.3 4.0 - 9.5 [facility] x10(3)/[facility] LABORATORY RBC 3.36 (L) 4.58 - [facility] 5.54 [facility] x10(6)/[facility] LABORATORY Hemoglobin 9.7 (L) 13.7 - [facility] 16.[facility] gm/dL [facility] Hematocrit 30.3 (L) 40.5 - [facility] 48.5 % [facility] MCV 90.2 82.9 - [facility] 93.1 [facility] LABORATORY MCH 28.9 27.5 - [facility] 32.1 pg [facility]ORY MCHC 32.0 32.0 - [facility] 35[facility] gm/dL [facility] Platelets 282 145 - 357 [facility] x10(3)/[facility] LABORATORY RDWSD 53.9 (H) 36.0 - [facility] 45.0 [facility] LABORATORY RDWCV 16.5 (H) 11.4 - [facility] 13.8 % [facility] LABORATORY MPV 9.0 7.6 - 12.9 [facility] LABORATORY nRBC % Auto 0.0 % [facility] nRBC Abs Auto 0.000 0.000 - [facility] 0.000 [facility] x10(3)/[facility] LABORATORY Specimen Anatomical Collection Method Collection Time Receive d Time (Source) Location / / Volume Laterality Blood specimen 08/16/2017 5:08 AM 018 5:20 (specimen) EST AM EST Resulting Agency Comment Spec In Lab Yonathan Smith MD HEMATOLOGY ORDERABLES Performing Organization Address City/State/[place] [address] (ABNORMAL) Basic Metabolic Panel (non-fasting) (08/16/2017 5:08 AM EST) P athologist Signature Glucose Lvl 141 65 - 199 [facility] mg/dL [facility] Comment: Diabetes: >=200 mg/dL plus symp toms BUN 29 (H) 10 - 20 mg/dL [facility] LABORATORY Creatinine 1.25 0.80 - 1.50 mg/dL [facility] [...] LABORATORY Calcium 8.7 8.5 - 10.5 mg/dL [facility] LABORATORY Estimated GFR 57 (L) >=60 [facility] Comment: The reported eGFR should be multiplied b y 1.2 for patients. The MDRD is not an appropriate measure o f renal function for patients with body mass extremes or in patients with acute kidney failure. http://Bilims/DHnkdep http://Bilims/DHMCnkf Specimen Anatomical Collection Method Collection Time Receive d Time (Source) Location / / Volume Laterality Blood specimen 08/16/2017 5:08 AM 018 5:20 (specimen) EST AM EST Resulting Agency Comment Spec In Lab Yonathan Smith MD CHEMISTRY ORDERABLES Performing Organization Address City/State/[place] [address] (ABNORMAL) Prothrombin Time (08/16/2017 [...] [facility]/ZIP Code Phon e Number [address] POCT Glucose (08/16/2017 4:09 AM EST) athologist Signature POC Glucose 147 65 - 199 [facility] RYAN mg/dL [facility] LABORATORY [...] [facility]/ZIP Code Phon e Number [address] POCT Glucose (08/15/2017 11:56 PM EST) athologist Signature POC Glucose 176 65 - 199 [place] R[place]AN mg/dL [facility]/ZIP Code Phon e Number [address] POCT Glucose (08/15/2017 8:05 [...] Organization Address City/State/ZIP [place] [address] (ABNORMAL) POCT Glucose (08/15/2017 4:50 PM EST) athologist Signature POC Glucose 232 (H) 65 - 199 [place] mg/dL [facility] Comment: [...] Organization Address City/State/ZIP [place] [address] POCT Glucose (08/15/2017 12:04 [...] Organization Address City/State/ZIP [place] [address] POCT Glucose (08/15/2017 7:36 AM EST) athologist Signature POC Glucose 124 65 - 199 [place] mg/dL [facility] [...] City/State/[place] [address] (ABNORMAL) Differential, Automated (08/15/2017 6:22 AM EST) [facility] Method Time Signature Neutrophils % 76.1 % [facility] LABOR[facility]ORY Neutr Abs (ANC) 6.62 (H) 1.70 - [facility] 6.10 [facility] x10(3)/[facility] LABORATORY Lymphocytes % 9.3 % [facility] LABORATORY Lymphocytes Abs 0.8 (L) 0.9 - 3.2 [facility] x10(3)/[facility] LABORATORY Monocytes % 9.4 % [facility] LABORATORY Monocyte Abs 0.8 0.3 - 0.9 [facility] x10(3)/[facility] LABORATORY Eosinophils % 4.0 % [facility] LABORATORY Eosinophils Abs 0.4 0.0 - 0.4 [facility] x10(3)/[facility] LABORATORY Basophils % 0.6 % [facility] LABORATORY Basophils Abs 0.0 0.0 - 0.1 [facility] x10(3)/[facility] LABORATORY [...] [facility]/ZIP Code Phon e Number [address] (ABNORMAL) Hemogram (08/15/2017 6:22 AM EST) Analysis Performed At Patho logist Time Signature WBC 8.7 4.0 - 9.5 [facility](3[facility] LABORATORY RBC 3.21 (L) 4.58 - [place] 5.54 [facility] x10(6)/[facility] LABORATORY Hemoglobin 9.1 (L) 13.7 - [facility] 16.5 gm/dL [facility] LABORATORY Hematocrit 29.0 (L) 40.5 - [facility] 48.5 % [facility] LABORATORY MCV 90.3 82.9 - [facility] 93.1 [facility] LABORATORY MCH 28.3 27.5 - [facility] RYAN 32.1 pg [facility] LABORATORY MCHC 31.4 (L) 32.0 - [facility] 35.7 gm/dL [facility] LABORATORY Platelets 254 145 - 357 [facility] x10(3)/[facility] LABORATORY RDWSD 53.9 (H) 36.0 - [facility] RYAN 45.0 [facility] LABORATORY RDWCV 16.3 (H) 11.4 - [facility] RYAN 13.8 % [facility] LABORATORY MPV 8.8 7.6 - 12.9 [facility] LABORATORY nRBC % Auto 0.0 % [facility] LABORATORY nRBC Abs Auto 0.000 0.000 - [facility] RYAN 0.000 [facility] x10(3)/[facility] LABORATORY Specimen Anatomical Collection Method Collection Time Receive d Time (Source) Location / / Volume Laterality Blood specimen 08/15/2017 6:22 AM 018 6:33 (specimen) EST AM EST Resulting Agency Comment Spec In Lab Yonathan Smith MD HEMATOLOGY ORDERABLES Performing Organization Address City/State/ZIP Code Phon e Number [facility] [place] [address] (ABNORMAL) Basic Metabolic Panel (non-fasting) (08/15/2017 6:22 AM EST) P athologist Signature Glucose Lvl 118 65 - 199 [facility] mg/dL [facility] LABORATORY Comment: Diabetes: >=200 mg/dL plus symp toms BUN 27 (H) 10 - 20 mg/dL [facility] LABORATORY Creatinine 1.12 0.80 - 1.50 mg/dL [facility] LABORATORY Sodium 138 135 - [...] or in patients with acute kidney failure. [email or web address] Specimen Anatomical Collection Method Collection Time Receive d Time (Source) Location / / Volume Laterality Blood specimen 08/15/2017 6:22 AM 018 6:33 (specimen) EST AM EST Resulting Agency Comment Spec In Lab Yonathan Smith MD CHEMISTRY ORDERABLES Performing Organization Address City/State/ZIP Code Phon e Number [address] (ABNORMAL) Prothrombin Time (08/15/2017 [...] Address City/State/ZIP Code Phon e Number [address] POCT Glucose (08/15/2017 4:33 AM EST) athologist Signature POC Glucose 164 65 - 199 [facility] mg/dL [facility] LABORATORY Comment: [...] Address City/State/ZIP Code Phon e Number [address] POCT Glucose (08/15/2017 12:12 AM EST) athologist Signature POC Glucose 89 65 - 199 [facility] mg/dL [facility] LABORATORY [...] Address City/State/ZIP Code Phon e Number [address] (ABNORMAL) POCT Glucose (08/14/2017 [...] [facility]/ZIP [place] [address] POCT Glucose (08/14/2017 5:11 PM EST) athologist Signature POC Glucose 174 65 - 199 [facility] mg/dL [facility] [...] Organization Address City/State/ZIP [place] [address] POCT Glucose (08/14/2017 12:10 PM EST) athologist Signature POC Glucose 141 65 - 199 [place] mg/dL [facility] [...] Address City/State/ZIP Code Phon e Number [address] POCT Glucose (08/14/2017 8:07 AM EST) P athologist Signature POC Glucose 158 65 - 199 [facility] mg/dL [facility] LABORATORY [...] Address City/State/ZIP Code Phon e Number [address] (ABNORMAL) Differential, Automated (08/14/2017 4:52 AM EST) Patholo gist Method Time Signature Neutrophils % 78.6 % [facility] LABORATORY Neutr Abs (ANC) 7.70 (H) 1.70 - [facility] 6.10 [facility] x10(3)/[facility] LABORATORY Lymphocytes % 7.8 % [facility] LABORATORY Lymphocytes Abs 0.8 (L) 0.9 - 3.2 [facility] x10(3)/[facility] LABORATORY Monocytes % 8.8 % [facility] LABORATORY Monocyte Abs 0.9 0.3 - 0.9 [facility] x10(3)/[facility] LABORATORY Eosinophils % 4.0 % [facility] LABORATORY Eosinophils Abs 0.4 0.0 - 0.4 [facility] x10(3)/[facility] LABORATORY Basophils % 0.5 % [facility] LABORATORY Basophils Abs 0.0 0.0 - 0.1 [facility] x10(3)/[facility] LABORATORY Immature Gran % 0.30 % [...] Melisa Gran Abs 0.03 0.00 - 0.04 x10(3)/[facility] LABORATORY Specimen Anatomical Collection Method Collection Time Receive d Time (Source) Location / / Volume Laterality Blood specimen 08/14/2017 4:52 AM 018 5:08 (specimen) EST AM EST Resulting Agency Comment Spec In Lab Yonathan Smith MD HEMATOLOGY ORDERABLES Performing Organization Address City/State/[place] [address] (ABNORMAL) Hemogram (08/14/2017 4:52 AM EST) Analysis Performed At Patho logist Time Signature WBC 9.8 (H) 4.0 - 9.5 [facility] x10(3)/[facility] LABORATORY RBC 3.32 (L) 4.58 - [facility] 5.54 [facility] x10(6)/[facility] LABORATORY Hemoglobin 9.5 (L) 13.7 - [facility] 16.5 gm/dL [facility] LABORATORY Hematocrit 30.3 (L) 40.5 - [facility] 48.5 % [facility] LABORATORY MCV 91.3 82.9 - [facility] 93.1 [facility] LABORATORY MCH 28.6 27.5 - [facility] 32.1 pg [facility] LABORATORY MCHC 31.4 (L) 32.0 - [facility] 35.7 gm/dL [facility] LABORATORY Platelets 263 145 - 357 [facility] x10(3)/[facility] LABORATORY RDWSD 54.8 (H) 36.0 - [facility] 45.0 [facility] LABORATORY RDWCV 16.5 (H) 11.4 - [facility] 13.8 % [facility] LABORATORY MPV 9.1 7.6 - 12.9 [facility] LABORATORY nRBC % Auto 0.0 % [facility] LABORATORY nRBC Abs Auto 0.000 0.000 - [facility] 0.000 [facility] x10(3)/[facility] LABORATORY Specimen Anatomical Collection Method Collection Time Receive d Time (Source) Location / / Volume Laterality Blood specimen 08/14/2017 4:52 AM 018 5:08 (specimen) EST AM EST Resulting Agency Comment Spec In Lab Yonathan Smith MD HEMATOLOGY ORDERABLES Performing Organization Address City/[facility]/ZIP Code [place] [address] (ABNORMAL) Prothrombin Time (08/14/2017 [...] [facility]/ZIP [place] [address] (ABNORMAL) Basic Metabolic Panel (non-fasting) (08/14/2017 4:52 AM EST) athologist Signature Glucose Lvl 135 65 - 199 [facility] mg/dL [facility] LABORATORY Comment: Diabetes: >=200 mg/dL plus symp toms BUN 25 (H) 10 - 20 mg/dL [facility] LABORATORY Creatinine 1.36 0.80 - 1.50 mg/dL [facility] [...] or in patients with acute kidney failure. [email or web address] Specimen Anatomical Collection Method Collection Time Receive d Time (Source) Location / / Volume Laterality Blood specimen 08/14/2017 4:52 AM 018 5:08 (specimen) EST AM EST Resulting Agency Comment Spec In Lab Yonathan Smith MD CHEMISTRY ORDERABLES Performing Organization Address City/[facility]/ZIP Code Phon e Number [address] POCT Glucose (08/14/2017 3:56 AM EST) P athologist Signature POC Glucose 135 65 - 199 [facility] mg/dL [facility] LABORATORY [...] [facility]/ZIP [place] [address] POCT Glucose (08/13/2017 11:13 PM EST) athologist Signature POC Glucose 118 65 - 199 [place] [facility] mg/dL [facility] [...] Organization Address City/State/ZIP [place] [address] (ABNORMAL) POCT Glucose (08/13/2017 8:08 PM EST) athologist Signature POC Glucose 204 (H) 65 - 199 [facility] mg/dL [facility] LABORATORY [...] Organization Address City/State/ZIP [place] [address] POCT Glucose (08/13/2017 4:02 PM EST) athologist Signature POC Glucose 145 65 - 199 [facility] mg/dL [facility] LABORATORY [...] Organization Address City/State/ZIP [place] [address] POCT Glucose (08/13/2017 11:31 AM EST) athologist Signature POC Glucose 179 65 - 199 [facility] mg/dL [facility] LABORATORY [...] [facility]/ZIP [place] [address] (ABNORMAL) POCT Glucose (08/13/2017 10:16 AM EST) athologist Signature POC Glucose 211 (H) 65 - 199 [facility] mg/dL [facility] LABORATORY [...] [facility]/ZIP [place] [address] JULIAN, legs, multiple levels (08/13/2017 7:42 AM EST) Component Value Ref Test Analysis Performed At [facility] Range Method Time Signature VB Text Department: Vascular Surgery Lab VASCUBASE Report Patient: [id number] (GREGORY HOANG) CPT: 09945 ICD10: I99.8 Referring Physician: YONATHAN SMITH ?? Indications: s/p R 1,2,3 toe amps with red left foot, need n ew baseline Diabetes mellitus: yes ICD10 Diagnosis Code: I99.8 Findings: Right ?Pressure (mm Hg) ?? JULIAN ??Waveform ?TBI ?? Brachial Artery ?138 ? Dorsalis Pedis (Ankle) Arter y ?132 ? 0.94 ??[place]- Biphasic ? Posterior Tibial (Ankle) Art anila ??154 ? 1.10 ??[place]-Biphasic ? Fourth Toe ? 67 ? 0.48 [...] POC Glucose 156 65 - 199 [facility] mg/dL [facility] LABORATORY Comment: Supplemental ranges: <140 mg/dL before meals <180 mg/dL all other times of the day Specimen Anatomical Collection Method Collection Time Receive d Time (Source) Location / / Volume Laterality Blood specimen 08/13/2017 7:33 AM 018 7:33 (specimen) EST AM EST Yonathan Smiht MD POINT OF CARE TEST ORDERABLE S Performing Organization Address City/State/[place] [address] (ABNORMAL) Differential, Automated (08/13/2017 5:33 AM EST) Patholo gist Method Time Signature Neutrophils % 77.8 % [facility] LABORATORY Neutr Abs (ANC) 7.83 (H) 1.70 - [facility] 6.10 [facility] x10(3)/[facility] LABORATORY Lymphocytes % 8.4 % [facility] LABORATORY Lymphocytes Abs 0.8 (L) 0.9 - 3.2 [facility] x10(3)/[facility] LABORATORY Monocytes % 8.3 % [facility] LABORATORY Monocyte Abs 0.8 0.3 - 0.9 [facility] x10(3)/[facility] LABORATORY Eosinophils % 4.6 % [facility] LABORATORY Eosinophils Abs 0.5 (H) 0.0 - 0.4 [facility] x10(3)/[facility] LABORATORY Basophils % 0.5 % [facility] LABORATORY Basophils Abs 0.0 0.0 - 0.1 [facility] x10(3)/[facility] LABORATORY Immature Gran % 0.40 % [...] Melisa Gran Abs 0.04 0.00 - 0.04 x10(3)/[facility] LABORATORY Specimen Anatomical Collection Method Collection Time Receive d Time (Source) Location / / Volume Laterality Blood specimen 08/13/2017 5:33 AM 018 6:04 (specimen) EST AM EST Resulting Agency Comment Spec In Lab Yonathan Smith MD HEMATOLOGY ORDERABLES Performing Organization Address City/State/ZIP Code Phon e Number [place] [id number] HOSPITAL LABORATORY Drive (ABNORMAL) Hemogram (08/13/2017 5:33 AM EST) Analysis Performed At Patho logist Time Signature WBC 10.1 (H) 4.0 - 9.5 [facility] x10(3)/[facility] LABORATORY RBC 3.21 (L) 4.58 - [facility] 5.54 [facility] x10(6)/[facility] LABORATORY Hemoglobin 9.2 (L) 13.7 - [facility] 16.5 gm/dL [facility] LABORATORY Hematocrit 29.6 (L) 40.5 - [facility] 48.5 % [facility] LABORATORY MCV 92.2 82.9 - [facility] 93.1 [facility] LABORATORY MCH 28.7 27.5 - [facility] 32.1 pg [facility] LABORATORY MCHC 31.1 (L) 32.0 - [facility] 35.7 gm/dL [facility] LABORATORY Platelets 263 145 - 357 [facility] x10(3)/[facility] LABORATORY RDWSD 54.8 (H) 36.0 - [facility] 45.0 [facility] LABORATORY RDWCV 16.4 (H) 11.4 - [facility] 13.8 % [facility] LABORATORY MPV 9.2 7.6 - 12.9 [facility] LABORATORY nRBC % Auto 0.0 % [facility] LABORATORY nRBC Abs Auto 0.000 0.000 - [facility] 0.000 [facility] x10(3)/[facility] LABORATORY Specimen Anatomical Collection Method Collection Time Receive d Time (Source) Location / / Volume Laterality Blood specimen 08/13/2017 5:33 AM 018 6:04 (specimen) EST AM EST Resulting Agency Comment Spec In Lab Yonathan Smith MD HEMATOLOGY ORDERABLES Performing Organization Address City/State/[place] [address] (ABNORMAL) Prothrombin Time (08/13/2017 [...] City/State/[place] [address] (ABNORMAL) Basic Metabolic Panel (non-fasting) (08/13/2017 5:33 AM EST) P athologist Signature Glucose Lvl 126 65 - 199 [facility] mg/dL [facility] LABORATORY Comment: Diabetes: >=200 mg/dL plus symp toms BUN 18 10 - 20 mg/dL [facility] LABORATORY Creatinine 1.16 0.80 - 1.50 mg/dL [facility] [...] Calcium 7.9 (L) 8.5 - 10.5 mg/dL [facility] LABORATORY Estimated GFR >60 >=60 [facility] LABORATORY Comment: The reported eGFR should be multiplied b y 1.2 for patients. The MDRD is not an appropriate measure o f renal function for patients with body mass extremes or in patients with acute kidney failure. [email or web address] Specimen Anatomical Collection Method Collection Time Receive d Time (Source) Location / / Volume Laterality Blood specimen 08/13/2017 5:33 AM 018 6:04 (specimen) EST AM EST Resulting Agency Comment Spec In Lab Yonathan Smith MD CHEMISTRY ORDERABLES Performing Organization Address City/State/ZIP Code Phon e Number [address] POCT Glucose (08/13/2017 4:29 [...] [facility]/ZIP Code [place] [address] POCT Glucose (08/12/2017 11:28 [...] [facility]/ZIP Code Phon e Number [address] (ABNORMAL) POCT Glucose (08/12/2017 [...] Address City/State/ZIP Code Phon e Number [address] POCT Glucose (08/12/2017 4:24 PM EST) athologist Signature POC Glucose 161 65 - 199 [facility] mg/dL [facility] LABORATORY Comment: [...] Address City/State/ZIP Code Phon e Number [address] POCT Glucose (08/12/2017 12:00 PM EST) athologist Signature POC Glucose 167 65 - 199 [facility] mg/dL [facility] [...] Address City/State/ZIP Code Phon e Number [address] POCT Glucose (08/12/2017 7:25 AM EST) athologist Signature POC Glucose 152 65 - 199 [facility] mg/dL [facility] [...] City/State/[place] [address] (ABNORMAL) Differential, Automated (08/12/2017 6:29 AM EST) [facility] Method Time Signature Neutrophils % 78.7 % [facility] LABORATORY Neutr Abs (ANC) 7.94 (H) 1.70 - [facility] 6.10 [facility] x10(3)/[facility] LABORATORY Lymphocytes % 8.8 % [facility] LABORATORY Lymphocytes Abs 0.9 0.9 - 3.2 [facility] x10(3)/[facility] LABORATORY Monocytes % 7.8 % [facility] LABORATORY Monocyte Abs 0.8 0.3 - 0.9 [facility] x10(3)/[facility] LABORATORY Eosinophils % 3.9 % [facility] LABORATORY Eosinophils Abs 0.4 0.0 - 0.4 [facility] x10(3)/[facility] LABORATORY Basophils % 0.3 % [facility] LABORATORY Basophils Abs 0.0 0.0 - 0.1 [facility] x10(3)/[facility] LABORATORY Immature Gran % 0.50 % [...] Address City/State/ZIP Code Phon e Number [address] (ABNORMAL) Hemogram (08/12/2017 6:29 AM EST) Analysis Performed At Patho logist Time Signature WBC 10.1 (H) 4.0 - 9.5 [facility](3[facility] LABORATORY RBC 3.02 (L) 4.58 - [facility] 5.54 [facility] x10(6)/[facility] LABORATORY Hemoglobin 8.7 (L) 13.7 - [facility] 16.5 gm/dL [facility] LABORATORY Hematocrit 28.1 (L) 40.5 - [facility] 48.5 % [facility] LABORATORY MCV 93.0 82.9 - [facility] 93.1 [facility] LABORATORY MCH 28.8 27.5 - [place] 32.1 pg [facility] LABORATORY MCHC 31.0 (L) 32.0 - [place] 35.7 gm/dL [facility] LABORATORY Platelets 223 145 - 357 [facility] x10(3)/[facility] LABORATORY RDWSD 56.1 (H) 36.0 - [place] [facility] 45.0 [facility] LABORATORY RDWCV 16.4 (H) 11.4 - [facility] RY[facility] 13.8 % [facility] LABORATORY MPV 9.0 7.6 - 12.9 [facility] LABORATORY nRBC % Auto 0.0 % [facility] LABORATORY nRBC Abs Auto 0.000 0.000 - [place] [facility] 0.000 [facility] x10(3)/[facility] LABORATORY Specimen Anatomical Collection Method Collection Time Receive d Time (Source) Location / / Volume Laterality Blood specimen 08/12/2017 6:29 AM 018 6:38 (specimen) EST AM EST Resulting Agency Comment Spec In Lab Yonathan Smith MD HEMATOLOGY ORDERABLES Performing Organization Address City/State/ZIP [place] [address] (ABNORMAL) Prothrombin Time (08/12/2017 [...] Organization Address City/State/ZIP [place] [address] (ABNORMAL) Basic Metabolic Panel (non-fasting) (08/12/2017 6:29 AM EST) athologist Signature Glucose Lvl 151 65 - 199 [facility] mg/dL [facility] LABORATORY Comment: Diabetes: >=200 mg/dL plus symp toms BUN 18 10 - 20 mg/dL [facility] LABORATORY Creatinine 1.11 0.80 - 1.50 mg/dL [facility] LABORATORY Sodium 138 135 - [...] Calcium 7.9 (L) 8.5 - 10.5 mg/dL [facility] LABORATORY Estimated GFR >60 >=60 [facility] LABORATORY Comment: The reported eGFR should be multiplied b y 1.2 for patients. The MDRD is not an appropriate measure o f renal function for patients with body mass extremes or in patients with acute kidney failure. [email or web address] Specimen Anatomical Collection Method Collection Time Receive d Time (Source) Location / / Volume Laterality Blood specimen 08/12/2017 6:29 AM 018 6:38 (specimen) EST AM EST Resulting Agency Comment Spec In Lab Yonathan Smith MD CHEMISTRY ORDERABLES Performing Organization Address City/[facility]/ZIP Code Phon e Number [address] POCT Glucose (08/12/2017 4:08 AM EST) athologist Signature POC Glucose 181 65 - 199 [facility] mg/dL [facility] LABORATORY Comment: [...] Organization Address City/State/ZIP [place] [address] (ABNORMAL) POCT Glucose (08/12/2017 12:17 AM EST) P athologist Signature POC Glucose 221 (H) 65 - 199 [facility] mg/dL [facility] LABORATORY [...] [facility]/ZIP Code Phon e Number [address] (ABNORMAL) POCT Glucose (08/11/2017 [...] [facility]/ZIP Code [place] [address] POCT Glucose (08/11/2017 5:59 [...] [facility]/ZIP Code [place] [address] (ABNORMAL) POCT Glucose (08/11/2017 [...] Address City/State/ZIP Code Phon e Number [address] POCT Glucose (08/11/2017 12:04 PM EST) athologist Signature POC Glucose 182 65 - 199 [facility] mg/dL [facility] LABORATORY [...] Address City/State/ZIP Code Phon e Number [address] POCT Glucose (08/11/2017 7:31 AM EST) athologist Signature POC Glucose 156 65 - 199 [facility] mg/dL [facility] LABORATORY [...] Address City/State/ZIP Code Phon e Number [address] (ABNORMAL) Differential, Automated (08/11/2017 6:16 AM EST) [facility] gist Method Time Signature Neutrophils % 83.7 % [facility] LABORATORY Neutr Abs (ANC) 10.76 (H) 1.70 - [facility] 6.10 [facility] x10(3)/[facility] LABORATORY Lymphocytes % 6.0 % [facility] LABORATORY Lymphocytes Abs 0.8 (L) 0.9 - 3.2 [facility] x10(3)/[facility] LABORATORY Monocytes % 7.5 % [facility] LABORATORY Monocyte Abs 1.0 (H) 0.3 - 0.9 [facility] x10(3)/[facility] LABORATORY Eosinophils % 2.0 % [facility] LABORATORY Eosinophils Abs 0.3 0.0 - 0.4 [facility] x10(3)/[facility] LABORATORY Basophils % 0.3 % [facility] LABORATORY Basophils Abs 0.0 0.0 - 0.1 [facility] x10(3)/[facility] LABORATORY Immature Gran % 0.50 % [...] City/State/[place] [address] (ABNORMAL) Hemogram (08/11/2017 6:16 AM EST) Analysis Performed At Patho logist Time Signature WBC 12.9 (H) 4.0 - 9.5 [facility] x10(3)/[facility] LABORATORY RBC 3.28 (L) 4.58 - [facility] 5.54 [facility] x10(6)/[facility] LABORATORY Hemoglobin 9.5 (L) 13.7 - [facility] 16.5 gm/dL [facility] LABORATORY Hematocrit 29.8 (L) 40.5 - [facility] 48.5 % [facility] LABORATORY MCV 90.9 82.9 - [facility] 93.1 [facility] LABORATORY MCH 29.0 27.5 - [place] 32.1 pg [facility] LABORATORY MCHC 31.9 (L) 32.0 - [facility] 35.7 gm/dL [facility] LABORATORY Platelets 236 145 - 357 [facility] x10(3)/[facility] LABORATORY RDWSD 53.5 (H) 36.0 - [facility] 45.0 [facility] LABORATORY RDWCV 16.3 (H) 11.4 - [facility] RYAN 13.8 % [facility] LABORATORY MPV 8.8 7.6 - 12.9 [facility] LABORATORY nRBC % Auto 0.0 % [facility] LABORATORY nRBC Abs Auto 0.000 0.000 - [facility] RYAN 0.000 [facility] x10(3)/[facility] LABORATORY Specimen Anatomical Collection Method Collection Time Receive d Time (Source) Location / / Volume Laterality Blood specimen 08/11/2017 6:16 AM 018 6:24 (specimen) EST AM EST Resulting Agency Comment Spec In Lab Yonatahn Smith MD HEMATOLOGY ORDERABLES Performing Organization Address City/State/[place] [address] (ABNORMAL) Prothrombin Time (08/11/2017 [...] [facility]/ZIP Code [place] [address] Basic Metabolic Panel (non-fasting) (08/11/2017 6:16 AM EST) athologist Signature Glucose Lvl 139 65 - 199 [facility] mg/dL [facility] LABORATORY Comment: Diabetes: >=200 mg/dL plus symp toms BUN 12 10 - 20 mg/dL [facility] LABORATORY Creatinine 0.91 0.80 - 1.50 mg/dL [facility] LABORATORY Sodium 138 135 - [...] or in patients with acute kidney failure. [email or web address] Specimen Anatomical Collection Method Collection Time Receive d Time (Source) Location / / Volume Laterality Blood specimen 08/11/2017 6:16 AM 018 6:24 (specimen) EST AM EST Resulting Agency Comment Spec In Lab Yonathan Smith MD CHEMISTRY ORDERABLES Performing Organization Address City/[facility]/ZIP Code Phon e Number [address] POCT Glucose (08/11/2017 4:07 AM EST) athologist Signature POC Glucose 162 65 - 199 [place] mg/dL [facility] LABORATORY Comment: [...] Address City/State/ZIP Code Phon e Number [address] POCT Glucose (08/10/2017 11:59 PM EST) athologist Signature POC Glucose 166 65 - 199 [place] mg/dL [facility] [...] Organization Address City/State/ZIP [place] [address] POCT Glucose (08/10/2017 8:12 PM EST) athologist Signature POC Glucose 156 65 - 199 [facility] mg/dL [facility] LABORATORY [...] Organization Address City/State/ZIP [place] [address] (ABNORMAL) POCT Glucose (08/10/2017 4:42 PM EST) P athologist Signature POC Glucose 211 (H) 65 - 199 [facility] mg/dL [facility] LABORATORY [...] Organization Address City/State/ZIP Code Phon e Number [place] [id number] HOSPITAL LABORATORY Drive (ABNORMAL) Differential, Automated (08/10/2017 2:30 PM EST) Patholo gist Method Time Signature Neutrophils % 87.6 % [facility] LABORATORY Neutr Abs (ANC) 9.90 (H) 1.70 - [facility] 6.10 [facility] x10(3)/[facility] L LABORATORY Lymphocytes % 4.3 % [facility] LABORATORY Lymphocytes Abs 0.5 (L) 0.9 - 3.2 [facility] x10(3)/[facility] LABORATORY Monocytes % 6.0 % [facility] LABORATORY Monocyte Abs 0.7 0.3 - 0.9 [facility] x10(3)/[facility] LABORATORY Eosinophils % 1.1 % [facility] LABORATORY Eosinophils Abs 0.1 0.0 - 0.4 [facility] x10(3)/[facility] LABORATORY Basophils % 0.4 % [facility] LABORATORY Basophils Abs 0.0 0.0 - 0.1 [facility] x10(3)/[facility] LABORATORY [...] City/State/[place] [address] (ABNORMAL) Hemogram (08/10/2017 2:30 PM EST) Analysis Performed At Patho logist Time Signature WBC 11.3 (H) 4.0 - 9.5 [facility] x10(3)/[facility] LABORATORY RBC 3.13 (L) 4.58 - [facility] 5.54 [facility] x10(6)/[facility] LABORATORY Hemoglobin 8.9 (L) 13.7 - [facility] 16.5 gm/dL [facility] LABORATORY Hematocrit 28.4 (L) 40.5 - [facility] 48.5 % [facility]ORATORY MCV 90.7 82.9 - [facility] 93.1 [facility] LABORATORY MCH 28.4 27.5 - [facility] 32.1 pg [facility] LABORATORY MCHC 31.3 (L) 32.0 - [facility] 35.7 gm/dL [facility] LABORATORY Platelets 213 145 - 357 [facility] x10(3)/[facility] LABORATORY RDWSD 53.7 (H) 36.0 - [facility] 45.0 [facility] LABORATORY RDWCV 16.4 (H) 11.4 - [facility] 13.8 % [facility] LABORATORY MPV 8.9 7.6 - 12.9 [facility] LABORATORY nRBC % Auto 0.0 % [facility] LABORATORY nRBC Abs Auto 0.000 0.000 - [facility] [place] 0.000 [facility] x10(3)/[facility] LABORATORY Specimen Anatomical Collection Method Collection Time Receive d Time (Source) Location / / Volume Laterality Blood specimen 08/10/2017 2:30 PM 018 2:48 (specimen) EST PM EST Resulting Agency Comment Spec In Lab Yonathan Smith MD HEMATOLOGY ORDERABLES Performing Organization Address City/State/ZIP Code Phon e Number [address] (ABNORMAL) POCT Glucose (08/10/2017 1:50 PM EST) athologist Signature POC Glucose 243 (H) 65 - 199 [facility] mg/dL [facility] LABORATORY [...] [facility]/ZIP Code Phon e Number [address] POCT Glucose (08/10/2017 11:21 AM EST) athologist Signature POC Glucose 156 65 - 199 [facility] mg/dL [facility] LABORATORY [...] [facility]/ZIP Code [place] [address] (ABNORMAL) Differential, Automated (08/10/2017 10:28 AM EST) [facility] Health[facility] gist Method Time Signature Neutrophils % 85.3 % [facility] LABORATORY Neutr Abs (ANC) 9.43 (H) 1.70 - [facility] 6.10 [facility] x10(3)/[facility] L LABORATORY Lymphocytes % 5.5 % [facility] LABORATORY Lymphocytes Abs 0.6 (L) 0.9 - 3.2 [facility] x10(3)/[facility] LABORATORY Monocytes % 5.9 % [facility] LABORATORY Monocyte Abs 0.6 0.3 - 0.9 [facility] x10(3)/[facility] LABORATORY Eosinophils % 2.1 % [facility] LABORATORY Eosinophils Abs 0.2 0.0 - 0.4 [facility] x10(3)/[facility] LABORATORY Basophils % 0.4 % [facility] LABORATORY Basophils Abs 0.0 0.0 - 0.1 [facility] x10(3)/[facility] LABORATORY Immature Gran % 0.80 % [...] City/State/[place] [address] (ABNORMAL) Hemogram (08/10/2017 10:28 AM EST) Analysis Performed At Patho logist Time Signature WBC 11.0 (H) 4.0 - 9.5 [facility] x10(3)/[facility] LABORATORY RBC 3.02 (L) 4.58 - [facility] 5.54 [facility] x10(6)/[facility] LABORATORY Hemoglobin 8.8 (L) 13.7 - [facility] 16.5 gm/dL [facility] LABORATORY Hematocrit 28.1 (L) 40.5 - [facility] 48.5 % [facility] LABORATORY MCV 93.0 82.9 - [facility] 93.1 [facility] MCH 29.1 27.5 - [place] 32.1 pg [facility] MCHC 31.3 (L) 32.0 - [place] 35.7 gm/dL [facility] Platelets 207 145 - 357 [facility] x10(3)/[facility] LABORATORY RDWSD 55.3 (H) 36.0 - [place] 45.0 [facility] RDWCV 16.4 (H) 11.4 - [facility] 13.8 % [facility] MPV 9.0 7.6 - 12.9 [facility] LABORATORY nRBC % Auto 0.0 % [facility] nRBC Abs Auto 0.000 0.000 - [facility] R[facility]AN 0.000 [facility] x10(3)/[facility] LABORATORY Specimen Anatomical Collection Method Collection Time Receive d Time (Source) Location / / Volume Laterality Blood specimen 08/10/2017 10:28 8 (specimen) AM EST 10:35 AM EST Resulting Agency Comment Spec In Lab Yonathan Smith MD HEMATOLOGY ORDERABLES Performing Organization Address City/State/[place] [address] VS Angiogram/intervention (vascular) (08/10/2017 [...] 2.5x80 5. Completion RLE angiogram 6. L LINING MAKER angiogram 7. 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 - L LINING MAKER angriogram demonstrated: High fe moral bifurcation over the proximal half of the femoral head. L LINING MAKER access in the distal L LINING MAKER. - Closure device: Mynx Technical Procedure: ?The [...] for a 45cm 5F Destination. V18 and Corea a nd QuickCross catheters were used to [...] bifurcation. Access appeared in the distal R LINING MAKER. Closure and sheath removal was performed with [...] 2.5x80 5. Completion RLE angiogram 6. L LINING MAKER angiogram 7. 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 - L LINING MAKER angriogram demonstrated: High fe moral bifurcation over the proximal half of the femoral head. L LINING MAKER access in the distal L LINING MAKER. - Closure device: Mynx Technical Procedure: The [...] for a 45cm 5F Destination. V18 and Corea a nd QuickCross catheters were used to [...] bifurcation. Access appeared in the distal R LINING MAKER. Closure and sheath removal was performed with [...] (ABNORMAL) Differential, Automated (08/10/2017 5:50 AM EST) [facility] gist Method Time Signature Neutrophils % 80.1 % [facility] LABORATORY Neutr Abs (ANC) 9.01 (H) 1.70 - [facility] 6.10 [facility] x10(3)/[facility] LABORATORY Lymphocytes % 8.8 % [facility] LABORATORY Lymphocytes Abs 1.0 0.9 - 3.2 [facility] x10(3)/[facility] LABORATORY Monocytes % 8.3 % [facility] LABORATORY Monocyte Abs 0.9 0.3 - 0.9 [facility] x10(3)/[facility] LABORATORY Eosinophils % 2.0 % [facility] LABORATORY Eosinophils Abs 0.2 0.0 - 0.4 [facility] x10(3)/[facility] LABORATORY Basophils % 0.4 % [facility] LABORATORY Basophils Abs 0.0 0.0 - 0.1 [facility] x10(3)/[facility] LABORATORY Immature Gran % 0.40 % [...] City/State/[place] [address] (ABNORMAL) Hemogram (08/10/2017 5:50 AM EST) Analysis Performed At Patho logist Time Signature WBC 11.3 (H) 4.0 - 9.5 [facility] x10(3[facility] LABORATORY RBC 3.15 (L) 4.58 - [facility] 5.54 [facility] x10(6)/[facility] LABORATORY Hemoglobin 8.9 (L) 13.7 - [facility] 16.5 gm/dL [facility] LABORATORY Hematocrit 29.0 (L) 40.5 - [facility] 48.5 % [facility] LABORATORY MCV 92.1 82.9 - [facility] 93.1 [facility] LABORATORY MCH 28.3 27.5 - [facility] 32.1 pg [facility] LABORATORY MCHC 30.7 (L) 32.0 - [facility] 35.7 gm/dL [facility] LABORATORY Platelets 231 145 - 357 [facility] x10(3)/[facility] LABORATORY RDWSD 53.9 (H) 36.0 - [facility] 45.0 [facility] LABORATORY RDWCV 16.2 (H) 11.4 - [facility] 13.8 % [facility] LABORATORY MPV 8.7 7.6 - 12.9 [facility] LABORATORY nRBC % Auto 0.0 % [facility] LABORATORY nRBC Abs Auto 0.000 0.000 - [facility] 0.000 [facility] x10(3)/[facility] LABORATORY Specimen Anatomical Collection Method Collection Time Receive d Time (Source) Location / / Volume Laterality Blood specimen 08/10/2017 5:50 AM 018 5:59 (specimen) EST AM EST Resulting Agency Comment Spec In Lab Yonathan Smith MD HEMATOLOGY ORDERABLES Performing Organization Address City/State/[place] [address] (ABNORMAL) Basic Metabolic Panel (non-fasting) (08/10/2017 5:50 AM EST) athologist Signature Glucose Lvl 135 65 - 199 [facility] mg/dL [facility] LABORATORY [...] or in patients with acute kidney failure. [email or web address] Specimen Anatomical Collection Method Collection Time Receive d Time (Source) Location / / Volume Laterality Blood specimen 08/10/2017 5:50 AM 018 5:59 (specimen) EST AM EST Resulting Agency Comment Spec In Lab Yonathan Smith MD CHEMISTRY ORDERABLES Performing Organization Address City/[facility]/ZIP Code [place] [address] (ABNORMAL) Prothrombin Time (08/10/2017 [...] [facility]/ZIP Code [place] [address] (ABNORMAL) POCT Glucose (08/10/2017 4:01 AM EST) athologist Signature POC Glucose 206 (H) 65 - 199 [facility] mg/dL [facility] LABORATORY [...] Health Network/ZIP [place] [address] POCT Glucose (08/10/2017 2:01 AM EST) athologist Signature POC Glucose 188 65 - 199 [place] mg/dL [facility] LABORATORY [...] Organization Address City/State/ZIP Code [place] [address] (ABNORMAL) POCT Glucose (08/09/2017 11:42 PM EST) athologist Signature POC Glucose 283 (H) 65 - 199 [facility]/dL [facility] LABORATORY [...] Organization Address City/State/ZIP [place] [address] POCT Glucose (08/09/2017 8:55 PM EST) athologist Signature POC Glucose 182 65 - 199 [place] mg/dL [facility] LABORATORY Comment: [...] Organization Address City/State/ZIP [place] [address] (ABNORMAL) APTT (08/09/2017 6:42 [...] Performing Organization Address City/[facility]/ZIP [facility] Phon e Number [address] POCT Glucose (08/09/2017 4:41 PM EST) athologist Signature POC Glucose 195 65 - 199 [facility] mg/dL [facility] LABORATORY Comment: [...] [facility]/ZIP Code [place] [address] POCT Glucose (08/09/2017 12:29 PM EST) athologist Signature POC Glucose 140 65 - 199 [facility] mg/dL [facility] LABORATORY [...] Organization Address City/State/ZIP [place] [address] POCT Glucose (08/09/2017 9:59 AM EST) P athologist Signature POC Glucose 135 65 - 199 [facility] mg/dL [facility] LABORATORY [...] [facility]/ZIP Code [place] [address] Specimen to Pathology (08/09/2017 [...] [facility]/ZIP Code [place] [address] Surgical Pathology Report (08/09/2017 8:40 AM EST) Component Value Ref Test Analysis Performed At Patholo gist Range Method Time Signature Surgical [id number] ? Location: [facility]; [facility]; A [facility] Report The signing pathologist has [...] Henrique Flower Verified: ??08/13/2017 ?Pathologist Performed at: ??-[facility] Dept. of Pathology, [place], [place] CLINICAL INFORMATION Specimen Submitted: A - [...] City/State/[place] [address] Anaerobic Culture (08/09/2017 8:30 AM EST) [facility] gist Method Time Signature Anaerobic No anaerobic [facility] Culture organisms [facility] LABORATORY Specimen Anatomical Collection Method Collection Time [...] Organization Address City/State/ZIP Code [place] [address] (ABNORMAL) Abscess/Wound Aspirate Culture (08/09/2017 8:30 AM EST) Patholo gist Method Time Signature Abscess/Wound Moderate mixed [place] Aspirate bacterial [place] Culture morphotypes [facility] normal LABORATORY cutaneous leroy (A) Gram Stain Rare White Blood Cells [place] Few Gram Positive Cocci in pairs [place] () [facility] LABORATORY Organism Gram Positive [place] Cocci in pairs [place] () [facility] LABORATORY Specimen Anatomical Collection Method Collection Time Receive d Time (Source) Location / / Volume Laterality Specimen from STRUCTURE OF RIGHT 08/09/2017 8:30 AM 9:10 abscess FOOT / Unknown EST AM EST (specimen) Comment: SWAB RIGHT GREAT TOE ABSCESS FO R AEROBIC AND ANAEROBIC CULTURES. Resulting Agency Comment Spec In Lab Yonathan Smith MD MICROBIOLOGY - GENERAL ORDER ROBSNO Performing Organization Address City/[facility]/ZIP Code Phon e Number [address] POCT Glucose (08/09/2017 4:28 AM EST) P athologist Signature POC Glucose 128 65 - 199 [facility] mg/dL [facility] LABORATORY Comment: [...] [facility]/ZIP Code [place] [address] ABORH Recheck Status (08/09/2017 [...] BANK ORDERABLES Performing Organization Address City/[facility]/ZIP Code [place] [address] Antibody screen (08/09/2017 1:10 AM EST) [facility] Method Time Signature Ab Screen Negative [facility] LABORATORY Expires at 08/12/2017 [facility] [id number] on: [facility] LABORATORY Specimen Anatomical Collection Method Collection Time Receive d Time (Source) Location / / Volume Laterality Blood specimen 08/09/2017 1:10 AM 018 1:35 (specimen) EST AM EST Resulting Agency Comment Spec In Lab Yonathan Smith MD BLOOD BANK ORDERABLES Performing Organization Address City/[facility]/ZIP Code [place] [address] ABO/Rh Typing (08/09/2017 1:10 AM EST) P athologist Signature ABORh Type O Pos [facility] LABORATORY Specimen Anatomical Collection Method Collection Time Receive d Time (Source) Location / / Volume Laterality Blood specimen 08/09/2017 1:10 AM 018 1:35 (specimen) EST AM EST Resulting Agency Comment Spec In Lab Yonathan Smith MD BLOOD BANK ORDERABLES Performing Organization Address City/[facility]/ZIP Code [place] [address] (ABNORMAL) APTT (08/09/2017 1:10 [...] City/State/[place] [address] (ABNORMAL) Differential, Automated (08/09/2017 1:10 AM EST) [facility] gist Method Time Signature Neutrophils % 76.2 % [facility] LABORATORY Neutr Abs (ANC) 8.59 (H) 1.70 - [facility] 6.10 [facility] x10(3)/[facility] LABORATORY Lymphocytes % 11.0 % [facility] LABORATORY Lymphocytes Abs 1.2 0.9 - 3.2 [facility] x10(3)/[facility] LABORATORY Monocytes % 8.4 % [facility] LABORATORY Monocyte Abs 1.0 (H) 0.3 - 0.9 [facility] x10(3)/[facility] LABORATORY Eosinophils % 3.5 % [facility] LABORATORY Eosinophils Abs 0.4 0.0 - 0.4 [facility] x10(3)/[facility] LABORATORY Basophils % 0.5 % [facility] LABORATORY Basophils Abs 0.1 0.0 - 0.1 [facility] x10(3)/[facility] LABORATORY Immature Gran % 0.40 % [...] City/State/[place] [address] (ABNORMAL) Hemogram (08/09/2017 1:10 AM EST) Analysis Performed At Patho logist Time Signature WBC 11.3 (H) 4.0 - 9.5 [facility] x10(3)/[facility] LABORATORY RBC 3.47 (L) 4.58 - [facility] 5.54 [facility] x10(6)/[facility] LABORATORY Hemoglobin 10.0 (L) 13.7 - [facility] 16.5 gm/dL [facility] LABORATORY Hematocrit 31.9 (L) 40.5 - [facility] 48.5 % [facility] LABORATORY MCV 91.9 82.9 - [facility] 93.1 [facility] LABORATORY MCH 28.8 27.5 - [facility] 32.1 pg [facility] LABORATORY MCHC 31.3 (L) 32.0 - [facility] 35.7 gm/dL [facility] LABORATORY Platelets 234 145 - 357 [facility] x10(3)/[facility] LABORATORY RDWSD 54.0 (H) 36.0 - [facility] 45.0 [facility] LABORATORY RDWCV 16.2 (H) 11.4 - [facility] R[facility] 13.8 % [facility] LABORATORY MPV 8.7 7.6 - 12.9 [facility] LABORATORY nRBC % Auto 0.0 % [facility] LABORATORY nRBC Abs Auto 0.000 0.000 - [facility] 0.000 [facility] x10(3)/[facility] LABORATORY Specimen Anatomical Collection Method Collection Time Receive d Time (Source) Location / / Volume Laterality Blood specimen 08/09/2017 1:10 AM 018 1:19 (specimen) EST AM EST Resulting Agency Comment Spec In Lab Yonathan Smith MD HEMATOLOGY ORDERABLES Performing Organization Address City/State/[place] [address] (ABNORMAL) Prothrombin Time (08/09/2017 [...] Organization Address City/State/ZIP Code Phon e Number [place] [id number] HOSPITAL LABOR[address]ORY Drive (ABNORMAL) Basic Metabolic Panel (non-fasting) (08/09/2017 1:10 AM EST) athologist Signature Glucose Lvl 108 65 - 199 [facility] mg/dL [facility] LABORATORY Comment: Diabetes: >=200 mg/dL plus symp toms BUN 34 (H) 10 - 20 mg/dL [facility] LABORATORY Creatinine 1.54 (H) 0.80 - 1.50 mg/dL [facility] LABORATORY Sodium 138 135 - [...] mg/dL [facility] LABORATORY Estimated GFR 45 (L) >=60 [facility] LABORATORY Comment: The reported eGFR should be multiplied b y 1.2 for patients. The MDRD is not an appropriate measure o f renal function for patients with body mass extremes or in patients with acute kidney failure. [email or web address] Specimen Anatomical Collection Method Collection Time Receive d Time (Source) Location / / Volume Laterality Blood specimen 08/09/2017 1:10 AM 018 1:19 (specimen) EST AM EST Resulting Agency Comment Spec In Lab Yonathan Smith MD CHEMISTRY ORDERABLES Performing Organization Address City/[facility]/ZIP Code Phon e Number [address] POCT Glucose (08/09/2017 12:05 AM EST) athologist Signature POC Glucose 128 65 - 199 [facility]dL [facility] [facility] Comment: [...] [facility]/ZIP [place] [address] (ABNORMAL) POCT Glucose (08/08/2017 7:36 PM EST) athologist Signature POC Glucose 215 (H) 65 - 199 [facility] mg/dL [facility] Comment: [...] [facility]/ZIP [place] [address] (ABNORMAL) POCT Glucose (08/08/2017 6:23 PM EST) athologist Signature POC Glucose 216 (H) 65 - 199 [facility]/dL [facility] Comment: Supplemental ranges: <140 mg/dL before meals <180 mg/dL all other times of the day Specimen Anatomical Collection Method Collection Time Receive d Time (Source) Location / / Volume Laterality Blood specimen 08/08/2017 6:23 PM 018 6:23 (specimen) EST PM EST Yonathan Smith MD POINT OF CARE TEST ORDERABLE S Performing Organization Address [facility]/ZIP [place] [address] (ABNORMAL) APTT (08/08/2017 6:00 [...] [facility]/ZIP [place] [address] POCT Glucose (08/08/2017 4:42 PM EST) athologist Signature POC Glucose 78 65 - 199 [facility] mg/dL [facility] [...] Organization Address City/State/ZIP [place] [address] (ABNORMAL) POCT Glucose (08/08/2017 4:01 PM EST) P athologist Signature POC Glucose 58 (L) 65 - 199 [facility] mg/dL [facility] [...] Organization Address City/State/ZIP [place] [address] POCT Glucose (08/08/2017 11:51 AM EST) P athologist Signature POC Glucose 90 65 - 199 [facility] mg/dL [facility] [...] Address City/State/ZIP Code Phon e Number [address] (ABNORMAL) APTT (08/08/2017 10:27 [...] [facility]/ZIP Code Phon e Number [address] POCT Glucose (08/08/2017 8:02 AM EST) athologist Signature POC Glucose 178 65 - 199 [facility] mg/dL [facility] [...] [facility]/ZIP [place] [address] (ABNORMAL) APTT (08/08/2017 4:51 AM EST) athologist Signature PTT >160 25 - 35 [facility] (Critical) sec [facility] [...] Address City/State/ZIP [place] [address] (ABNORMAL) Differential, Automated (08/08/2017 4:51 AM EST) [facility] Method Time Signature Neutrophils % 77.9 % [facility] Neutr Abs (ANC) 8.17 (H) 1.70 - [facility] 6.10 [facility] x10(3)/[facility] LABORATORY Lymphocytes % 10.3 % [facility] Lymphocytes Abs 1.1 0.9 - 3.2 [facility] x10(3)/[facility] LABORATORY Monocytes % 7.0 % [facility] Monocyte Abs 0.7 0.3 - 0.9 [facility] x10(3)/[facility] LABORATORY Eosinophils % 3.6 % [facility] Eosinophils Abs 0.4 0.0 - 0.4 [facility] x10(3)/[facility] LABORATORY Basophils % 0.5 % [facility] Basophils Abs 0.0 0.0 - 0.1 [facility] x10(3)/[facility] LABORATORY [...] City/State/[place] [address] (ABNORMAL) Hemogram (08/08/2017 4:51 AM EST) Analysis Performed At Patho logist Time Signature WBC 10.5 (H) 4.0 - 9.5 [facility] x[facility](3[facility] LABORATORY RBC 3.27 (L) 4.58 - [place] 5.54 [facility] x10(6)/[facility] LABORATORY Hemoglobin 9.3 (L) 13.7 - [facility] 16.5 gm/dL [facility] Hematocrit 30.3 (L) 40.5 - [facility] 48.5 % [facility] MCV 92.7 82.9 - [facility] 93.1 [facility] LABORATORY MCH 28.4 27.5 - [place] 32.1 pg [facility] MCHC 30.7 (L) 32.0 - [facility] 35.7 gm/dL [facility] Platelets 252 145 - 357 [facility] x10(3)/[facility] LABORATORY RDWSD 54.6 (H) 36.0 - [facility] 45.0 [facility] LABORATORY RDWCV 16.2 (H) 11.4 - [facility] 13.8 % [facility] MPV 9.1 7.6 - 12.9 [facility] LABORATORY nRBC % Auto 0.0 % [facility] nRBC Abs Auto 0.000 0.000 - [facility] 0.000 [facility] x10(3)/[facility] LABORATORY Specimen Anatomical Collection Method Collection Time Receive d Time (Source) Location / / Volume Laterality Blood specimen 08/08/2017 4:51 AM 018 5:14 (specimen) EST AM EST Resulting Agency Comment Spec In Lab Yonathan Smith MD HEMATOLOGY ORDERABLES Performing Organization Address City/State/ZIP Code Phon e Number [place] [id number]OSP[address] LAB[address]ORY Drive (ABNORMAL) Prothrombin Time (08/08/2017 [...] City/State/[place] [address] (ABNORMAL) Basic Metabolic Panel (non-fasting) (08/08/2017 4:51 AM EST) athologist Signature Glucose Lvl 229 (H) 65 - 199 [facility] mg/dL [facility] Comment: Diabetes: >=200 mg/dL plus symp toms BUN 35 (H) 10 - 20 mg/dL [facility] Creatinine 1.57 (H) 0.80 - 1.50 mg/dL [facility] [...] Calcium 7.9 (L) 8.5 - 10.5 mg/dL [facility] Estimated GFR 44 (L) >=60 [facility] Comment: The reported eGFR should be multiplied b y 1.2 for patients. The MDRD is not an appropriate measure o f renal function for patients with body mass extremes or in patients with acute kidney failure. http://Bilims/DHnkdep http://Bilims/DHMCnkf Specimen Anatomical Collection Method Collection Time Receive d Time (Source) Location / / Volume Laterality Blood specimen 08/08/2017 4:51 AM 018 5:14 (specimen) EST AM EST Resulting Agency Comment Spec In Lab Yonathan Smith MD CHEMISTRY ORDERABLES Performing Organization Address City/[facility] Phon e Number [address] POCT Glucose (08/08/2017 4:20 AM EST) athologist Signature POC Glucose 193 65 - 199 [facility] mg/dL [facility] Comment: [...] [facility]/ZIP Code Phon e Number [address] POCT Glucose (08/07/2017 11:11 PM EST) P athologist Signature POC Glucose 124 65 - 199 [facility]/dL [facility] [...] [facility]/ZIP Code [place] [address] (ABNORMAL) APTT (08/07/2017 10:18 [...] Smith MD HEMATOLOGY ORDERABLES Performing Organization Address [facility]/ZIP Code [place] [address] POCT Glucose (08/07/2017 8:10 PM EST) athologist Signature POC Glucose 140 65 - 199 [facility] mg/dL [facility] Comment: [...] [facility]/ZIP Code Phon e Number [address] POCT Glucose (08/07/2017 5:27 PM EST) athologist Signature POC Glucose 187 65 - 199 [facility] mg/dL [facility] [...] [facility]/ZIP Code Phon e Number [address] POCT Glucose (08/07/2017 3:29 PM EST) athologist Signature POC Glucose 86 65 - 199 [facility] mg/dL [facility] Comment: Supplemental ranges: <140 mg/dL before meals <180 mg/dL all other times of the day Specimen Anatomical Collection Method Collection Time Receive d Time (Source) Location / / Volume Laterality Blood specimen 08/07/2017 3:29 PM 018 3:29 (specimen) EST PM EST Yonathan Smith MD POINT OF CARE TEST ORDERABLE S Performing Organization Address [facility] [place] [address] (ABNORMAL) APTT (08/07/2017 2:50 [...] Performing Organization Address City/[facility]/ZIP [facility] [place] [address] (ABNORMAL) POCT Glucose (08/07/2017 2:23 PM EST) athologist Signature POC Glucose 55 (L) 65 - 199 [facility] mg/dL [facility] Comment: [...] Address City/State/ZIP Code Phon e Number [address] POCT Glucose (08/07/2017 12:08 PM EST) P athologist Signature POC Glucose 77 65 - 199 [facility] mg/dL [facility]OR[facility]ORY [...] Organization Address City/State/ZIP [place] [address] (ABNORMAL) Differential, Automated (08/07/2017 7:30 AM EST) Patholo gist Method Time Signature Neutrophils % 73.8 % [facility] Neutr Abs (ANC) 7.17 (H) 1.70 - [facility] 6.10 [facility] x10(3)/[facility] LABORATORY Lymphocytes % 12.2 % [facility] Lymphocytes Abs 1.2 0.9 - 3.2 [facility] x10(3)/[facility] LABORATORY Monocytes % 9.0 % [facility] Monocyte Abs 0.9 0.3 - 0.9 [facility] x10(3)/[facility] LABORATORY Eosinophils % 3.9 % [facility] Eosinophils Abs 0.4 0.0 - 0.4 [facility] x10(3)/[facility] LABORATORY Basophils % 0.6 % [facility] Basophils Abs 0.1 0.0 - 0.1 [facility] x10(3)/[facility] LABORATORY Immature Gran % 0.50 % [...] City/State/[place] [address] (ABNORMAL) Hemogram (08/07/2017 7:30 AM EST) Analysis Performed At Patho logist Time Signature WBC 9.7 (H) 4.0 - 9.5 [facility] x10(3)/[facility] LABORATORY RBC 3.54 (L) 4.58 - [facility] 5.54 [facility] x10(6)/[facility] LABORATORY Hemoglobin 9.9 (L) 13.7 - [facility] 16.5 gm/dL [facility] Hematocrit 32.3 (L) 40.5 - [facility] 48.5 % [facility] MCV 91.2 82.9 - [facility] 93.1 [facility] LABORATORY MCH 28.0 27.5 - [facility] 32.1 pg [facility] MCHC 30.7 (L) 32.0 - [facility] 35.7 gm/dL [facility] Platelets 312 145 - 357 [facility] x10(3)/[facility] LABORATORY RDWSD 53.2 (H) 36.0 - [facility] 45.0 [facility] RDWCV 16.0 (H) 11.4 - [facility] 13.8 % [facility] MPV 8.9 7.6 - 12.9 [facility] LABORATORY nRBC % Auto 0.0 % [facility] nRBC Abs Auto 0.000 0.000 - [facility] 0.000 [facility] x10(3)/[facility] LABORATORY Specimen Anatomical Collection Method Collection Time Receive d Time (Source) Location / / Volume Laterality Blood specimen 08/07/2017 7:30 AM 018 7:45 (specimen) EST AM EST Resulting Agency Comment Spec In Lab Yonathan Smith MD HEMATOLOGY ORDERABLES Performing Organization Address City/State/[place] [address] (ABNORMAL) Basic Metabolic Panel (non-fasting) (08/07/2017 7:30 AM EST) P athologist Signature Glucose Lvl 80 65 - 199 [facility] mg/dL [facility] Comment: Diabetes: >=200 mg/dL plus symp toms BUN 31 (H) 10 - 20 mg/dL [facility] Creatinine 1.22 0.80 - 1.50 mg/dL [facility] [...] mg/dL [facility] Estimated GFR 59 (L) >=60 [facility] Comment: The reported eGFR should be multiplied b y 1.2 for patients. The MDRD is not an appropriate measure o f renal function for patients with body mass extremes or in patients with acute kidney failure. http://tinyurl.Revetto/DHnkdep http://Parkya.com/DHMCnkf Specimen Anatomical Collection Method Collection Time Receive d Time (Source) Location / / Volume Laterality Blood specimen 08/07/2017 7:30 AM 018 7:45 (specimen) EST AM EST Resulting Agency Comment Spec In Lab Yonathan Smith MD CHEMISTRY ORDERABLES Performing Organization Address City/[facility]/ZIP Code Phon e Number [address] POCT Glucose (08/07/2017 7:27 AM EST) athologist Signature POC Glucose 81 65 - 199 [facility] mg/dL [facility] LABORATORY [...] [facility]/ZIP Code Phon e Number [address] APTT (08/07/2017 7:04 AM [...] [facility]/ZIP Code Phon e Number [address] (ABNORMAL) Prothrombin Time (08/07/2017 [...] Address City/State/ZIP Code Phon e Number [address] POCT Glucose (08/07/2017 4:03 AM EST) athologist Signature POC Glucose 93 65 - 199 [facility] mg/dL [facility] Comment: [...] Address City/State/ZIP Code Phon e Number [address] POCT Glucose (08/07/2017 12:04 AM EST) athologist Signature POC Glucose 107 65 - 199 [facility] mg/dL [facility] Comment: [...] Address City/State/ZIP Code Phon e Number [address] POCT Glucose (08/06/2017 7:56 PM EST) P athologist Signature POC Glucose 178 65 - 199 [facility] mg/dL [facility] LABORATORY [...] Address City/State/ZIP Code Phon e Number [address] TcPO2 (08/06/2017 2:32 PM EST) Component Value Ref Test Analysis Performed At Patholo gist Range Method Time Signature VB Text Department: Vascular Surgery Lab VASCUBASE Report Patient: [id number] (GREGORY HOANG) CPT: 7177321 ICD10: I99.8 Referring Physician: YONATHAN SMITH ?? [...] Marks, VAMSI) 08 (Given - Provider: Chiquis Mcrgath, VAMSI)2024 (Given - Provider: Mira Truong, RN) [...] 1400 (Dose confirmed - Provider: Chiquis Mcgrath, VMASI ) Oral, EVERY 24 HOURS, First dose [...] documented in this encounter Care Teams Health Education Coordinator Relationship Specialty Start Date End Date Lovely Vicente MD PCP - General 04/16/[address] [place] [address] documented as of this encounter
--- OUTSIDE RECORDS SUMMARY | 2022-04-10 09:00 | XMS_ITS | Encounter Summary ---
:1945 [place] [address] Care Team Providers Name Role Phone Lovely Vicente MD Primary Care Provider Encounter Details Date Type Department Care Team Description 08/04/2017 Notes Only Cardiac Surgery Makayla Wilson APRN [facility] [place] [address] CARDIAC SURGERY [phone] [place], [place] [address] (Wo rk) Social History Tobacco [...] Cardiology Zulma Dolan MD [facility] [place], [place] [address] (Wo rk) 05/28/2022 Laboratory Appointment Lab 05/28/2022 Office Visit Cardiology Zulma Dolan MD [facility] [place] [address] Liz Poole PA [facility] [place] [address] 06/10/2022 Office Visit Dermatology Laura Scherer MD [facility] [address] [place], [place] [address] (Wo rk) documented as of this encounter Visit Diagnoses Not on filedocumented in this encounter Care Teams Postie Relationship Specialty Start Date End Date Lovely Vicente MD PCP - General 04/16/[address] [place] [address] documented as of this encounter
--- OUTSIDE RECORDS SUMMARY | 2022-04-10 09:00 | XMS_ITS | Encounter Summary ---
:1945 [place] [address] Care Team Providers Name Role Phone Lovely Vicente MD Primary Care Provider Reason for Visit Auth/Cert Specialty Diagnoses / Procedures Referred By Contact Refer red To Contact Diagnoses Critical lower limb ischemia CELLULITIS RT FOOT Procedures EMERGENCY Referral ID Status Reason Start Date Expiration Date Visits Requ ested Visits Authorized [id number] 1 1 Encounter Details Date Type Department Care Team Description 08/09/2017 Anesthesia Event Main Operating Room Daniele Lizama MD [facility] [place] [address] [facility] Rob Jones MD [facility] [place] [address] [place] [address] Anesthesia Record Procedure Summary Procedure Name [...] Knowles, Dory arm), right; VAMSI Rios, RN rvqe-fiv-ocymwm catheter system; 20 gauge; 08/16/17; 1047 PIV 07/29/17; 1413; median 07/29/17 1413 by 08/16/17 1047 by cubital vein (antecubital Magdalene Hickey Williams, Dory fossa), left; VAMSI Wyatt, RN ncaq-cpt-xzxyfx catheter system; 20 gauge; 08/16/17; 1047 PIV 08/06/17; 1742; cephalic 08/06/17 1742 by 0920 by vein (lateral side of Taylor Laureano Danah y, Caitlyn C, arm), right; VAMSI BONNER elih-mfg-jpzpft catheter system; 22 gauge, 1 in length; Eliseo LAUREANO RN VAS; distraction, intradermal injection, tolerated well, appears comfortable; 0; 08/16/17; 0920 Wound 08/07/17; 1335; knee; 08/07/17 1335 by 08/16/17 1047 by laceration; wound occured Barbara Albert iams, Dory CLINICAL INFORMATICS STRATEGIST; 08/16/17; 1047 VAMSI Alonzo, RN PIV 08/07/17; 1734; cephalic 08/07/17 1734 by 1047 by vein (lateral side of Kendrick, Carlos W, Willia ms, Dory arm), left; MARCIE Wyatt RN ruml-dbo-ixpype catheter system; 22 gauge; distraction, intradermal injection, [...] Santillan MD - 08/09/2017 9:01 AM EST [facility] Department of Anesthesiology Post-procedure Note Patient: Don Fatima Procedure Summary Date Anesthesia Start Anesthesia Stop Room / Location 08/09/17 0802 0901 [facility] OR 14 / [facility] MAIN OR Procedure Diagnosis Surgeon Responsible Provider AMPUTATION, 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 Nerve [...] at [facility] MAIN OR Social History Substance Use [...] adequate IV access. Brody Santillan MD PGY-2, Special Weapons And Tactics Officer Pager #[phone] Anesthesiology Staff (Dewhirst): Pre-op summary note as [...] Cardiology Zulma Dolan MD [facility] [address] [place], [place] [address] (Wo rk) 05/28/2022 Laboratory Appointment Lab 05/28/2022 Office Visit Cardiology Zulma Dolan MD [facility] [place] [address] Liz Poole PA [facility] [place] [address] 06/10/2022 Office Visit Dermatology Laura Scherer MD [facility] [address] [place], [place] [address] (Wo rk) documented as of [...] Length: 10 cm Gauge: 21 Needle Type: O-nunrs-bwnfb Medication injection made in crementally with aspirations. [...] documented in this encounter Care Teams Director Day Care Center Relationship Specialty Start Date End Date Lovely Vicente MD PCP - General 04/16/[address] [facility] [address] [place] [address] documented as of this encounter
--- OUTSIDE RECORDS SUMMARY | 2022-04-10 09:00 | XMS_ITS | Encounter Summary ---
:1945 [place] [address] Care Team Providers Name Role Phone Lovely Vicente MD Primary Care Provider Encounter Details Date Type Department Care Team Description 08/04/2017 Notes Only Pain Management at Barbra Bruno, STACIE [facility] [place] [address] [place] [address] [phone] (Wo rk) Social History Tobacco Use Types [...] bid) at this time. Barbra Soares, MSN, WIRE STRETCHER-BC, [facility] documented in this encounter Plan of Treatment Upcoming Encounters Date Type Specialty Care Team Description 05/28/2022 Appointment Cardiology Zulma Dolan MD [facility] [address] [place], [place] [address] (Wo rk) 05/28/2022 Laboratory Appointment Lab 05/28/2022 Office Visit Cardiology Zulma Dolan MD [facility] [place] [address] Liz oPole PA [facility] [place] [address] 06/10/2022 Office Visit Dermatology Laura Scherer MD [facility] [address] [place], [place] [address] (Wo rk) documented as of this encounter Visit Diagnoses Not on filedocumented in this encounter Care Teams Senior Software Development Engineer Relationship Specialty Start Date End Date Lovely Vicnete MD PCP - General 04/16/[address] [place] [address] documented as of this encounter
--- OUTSIDE RECORDS SUMMARY | 2022-04-10 09:00 | XMS_ITS | Encounter Summary ---
:1945 Author Organization [employer] [place] [address] Care Team Providers Name Role Phone Lovely Vicente MD Primary Care Provider Reason for Visit Auth/Cert Specialty Diagnoses / Procedures Referred By Contact Refer red To Contact Diagnoses Critical lower limb ischemia CELLULITIS RT FOOT Procedures EMERGENCY Referral ID Status Reason Start Date Expiration Date Visits Requ ested Visits Authorized [id number] 1 1 Encounter Details Date Type Department Care Team Description 08/06/2017 Laboratory Appoint[address] Lab at [facility] Ischemia of foot [facility] [place] [address] Social History Tobacco Use Types Packs/Day [...] MD [facility] er [facility] [place] [address] (Wo rk) 05/28/2022 Laboratory Appointment Lab 05/28/2022 Office Visit Cardiology Zulma Dolan MD [facility] [place] [address] Liz Poole PA [facility] [place] [address] 06/10/2022 Office Visit Dermatology Laura Scherer MD [facility] ER DR [address]-DERMAT [facility] [place] [place] [address] (Wo rk) documented as of [...] Signature Prealbumin 19 (L) 20 - 40 [facility] mg/dL [facility] LABORATORY Comment: Prealbumin levels are generally [...] Organization Address City/State/[place] [address] (ABNORMAL) Basic Metabolic Panel (non-fasting) (08/06/2017 12:32 PM EST) P athologist Signature Glucose Lvl 92 65 - 199 [facility] mg/dL [facility] Comment: Diabetes: >=200 mg/dL [...] or in patients with acute kidney failure. http://[employer]/DHnkdep http://[employer]/DHMCnkf Specimen Anatomical Collection Method Collection Time Receive d Time (Source) Location / / Volume Laterality Blood specimen 08/06/2017 12:32 8 1:15 (specimen) PM EST PM EST Resulting Agency Comment Spec In Lab Arik Clement MD CHEMISTRY ORDERABLES Performing Organization Address City/State/[place] [address] (ABNORMAL) Hemogram (08/06/2017 12:32 PM EST) Analysis Performed At Patho logist Time Signature WBC 11.8 (H) 4.0 - 9.5 [facility] x10(3)/[facility] LABORATORY RBC 3.49 (L) 4.58 - [facility] 5.54 [facility] x10(6)/[facility] LABORATORY Hemoglobin 9.9 (L) 13.7 - [facility] 16.5 gm/dL [facility] Hematocrit 32.0 (L) 40.5 - [facility] 48.5 % [facility] MCV 91.7 82.9 - [facility] 93.1 [facility] LABORATORY MCH 28.4 27.5 - [facility] 32.1 pg [facility] LABORATORY MCHC 30.9 (L) 32.0 - [place] 35.7 gm/dL [facility] Platelets 326 145 - 357 [facility] x10(3)/[facility] LABORATORY RDWSD 53.4 (H) 36.0 - [place] 45.0 [facility] LABORATORY RDWCV 16.0 (H) 11.4 - [place] 13.8 % [facility] LABORATORY MPV 9.1 7.6 - 12.9 [facility] LABORATORY nRBC % Auto 0.0 % [facility] LABORATORY nRBC Abs Auto 0.000 0.000 - [place] 0.000 [facility] x10(3)/[facility] LABORATORY Specimen Anatomical Collection Method Collection Time Receive d Time (Source) Location / / Volume Laterality Blood specimen 08/06/2017 12:32 8 1:15 (specimen) PM EST PM EST Resulting Agency Comment Spec In Lab Arik Clement MD HEMATOLOGY ORDERABLES Performing Organization Address City/State/ZIP Code Phon e Number [place] [phone] documented in this encounter Visit Diagnoses Diagnosis Ischemia of foot Unspecified circulatory system disorder documented in this encounter Care Teams Design Engineering Manager Relationship Specialty Start Date End Date Lovely Vicente MD PCP - General 04/16/[address] [place] [address] documented as of this encounter
--- OUTSIDE RECORDS SUMMARY | 2022-04-10 09:00 | XMS_ITS | Encounter Summary ---
:1945 Author Organization [facility] [place] [address] Care Team Providers Name Role Phone Lovely Vicente MD Primary Care Provider Encounter Details Date Type Department Care Team Description 08/04/2017 Orders Only Cardiac Surgery Makayla Wilson APRN [facility] [place] [address] CARDIAC SURGERY [phone] [place], [place] [address] (Wo rk) Social History Tobacco [...] 05/28/2022 Appointment Cardiology Zulma Dolan MD [facility] [place] [address] (Wo rk) 05/28/2022 Laboratory Appointment Lab 05/28/2022 Office Visit Cardiology Zulma Dolan MD [facility] [place] [address] Liz Poole PA [facility] [place] [address] 06/10/2022 Office Visit Dermatology Laura Scherer MD [facility] ER DR TEJA GR-DERMAT [place], [place] [address] (Wo rk) documented as of this encounter Visit Diagnoses Not on filedocumented in this encounter Care Teams Balloon Artist Relationship Specialty Start Date End Date Lovely Vicente MD PCP - General 04/16/[address] [place] [address] documented as of this encounter
--- OUTSIDE RECORDS SUMMARY | 2022-04-10 09:00 | XMS_ITS | Encounter Summary ---
:1945 Author Organization [facility] [place] [address] Care Team Providers Name Role Phone Lovely Vicente MD Primary Care Provider Encounter Details Date Type Department Care Team Description 08/06/2017 Orders Only Vascular Surgery at [facility] [place] APRN Ischemia of foot [facility] [place] [address] VASCULAR SURGERY [phone] [place], [place] [address] (Wo rk) Social History Tobacco [...] Dolan MD [facility] er [place], [place] [address] (Wo rk) 05/28/2022 Laboratory Appointment Lab 05/28/2022 Office Visit Cardiology Zulma Dolan MD [facility] [place] [address] Liz Poole PA [facility] [place] [address] 06/10/2022 Office Visit Dermatology Laura Scherer MD [facility] ER DR TEJA GR-DERMAT [place], [place] [address] (Wo rk) documented as [...] ms MUSE SYSTEM (Bezet) Calculated P [place] 44 degrees MUSE SYSTEM Calculated R [place] -31 degrees MUSE SYSTEM Calculated T [place] 106 degrees MUSE SYSTEM INTERPRETATION Normal sinus [...] (L) 20 - 40 [place] RYAN mg/dL [facility] Comment: Prealbumin levels are generally [...] Organization Address City/State/[place] [address] (ABNORMAL) Basic Metabolic Panel (non-fasting) (08/06/2017 12:32 PM EST) athologist Signature Glucose Lvl 92 65 - 199 [facility] mg/dL [facility] Comment: [...] mg/dL [facility] LABOR[facility] Estimated GFR 53 (L) >=60 [facility] LAB[facility] Comment: The reported eGFR should be multiplied b y 1.2 for patients. The MDRD is not an appropriate measure o f renal function for patients with body mass extremes or in patients with acute kidney failure. http://[employer]/DHnkdep http://[employer]/DHMCnkf Specimen Anatomical Collection Method Collection Time Receive d Time (Source) Location / / Volume Laterality Blood specimen 08/06/2017 12:32 8 1:15 (specimen) PM EST PM EST Resulting Agency Comment Spec In Lab Arik Clement MD CHEMISTRY ORDERABLES Performing Organization Address City/State/[place] [address] (ABNORMAL) Hemogram (08/06/2017 12:32 PM EST) Analysis Performed At Patho logist Time Signature WBC 11.8 (H) 4.0 - 9.5 [facility] x10(3)/[facility] LABORATORY RBC 3.49 (L) 4.58 - [facility] 5.54 [facility] x10(6)/[facility] LABORATORY Hemoglobin 9.9 (L) 13.7 - [facility] 16.5 gm/dL [facility] Hematocrit 32.0 (L) 40.5 - [facility] 48.5 % [facility] MCV 91.7 82.9 - [facility] 93.1 [facility] LABORATORY MCH 28.4 27.5 - [facility] 32.1 pg [facility] LABORATORY MCHC 30.9 (L) 32.0 - [facility] 35.7 gm/dL [facility] LABORATORY Platelets 326 145 - 357 [facility] x10(3)/[facility] LABORATORY RDWSD 53.4 (H) 36.0 - [facility] 45.0 [facility] LABORATORY RDWCV 16.0 (H) 11.4 - [facility] 13.8 % [facility] LABORATORY MPV 9.1 7.6 - 12.9 [facility] LABORATORY nRBC % Auto 0.0 % [facility] LABORATORY nRBC Abs Auto 0.000 0.000 - [facility] 0.000 [facility] x10(3)/[facility] LABORATORY Specimen Anatomical Collection Method Collection Time Receive d Time (Source) Location / / Volume Laterality Blood specimen 08/06/2017 12:32 8 1:15 (specimen) PM EST PM EST Resulting Agency Comment Spec In Lab Arik Clement MD HEMATOLOGY ORDERABLES Performing Organization Address City/State/[place] [address] documented in this encounter Visit Diagnoses Diagnosis Ischemia of foot Unspecified circulatory system disorder documented in this encounter Care Teams Beach Attendant Relationship Specialty Start Date End Date Lovely Vicente MD PCP - General 04/16/[address] [place] [address] documented as of this encounter
--- OUTSIDE RECORDS SUMMARY | 2022-04-10 09:00 | XMS_ITS | Encounter Summary ---
:1945 Author Organization [facility] [place] [address] Care Team Providers Name Role Phone Lovely Vicente MD Primary Care Provider Reason for Visit Auth/Cert Specialty Diagnoses / Procedures Referred By Contact Refer red To Contact Diagnoses Critical lower limb ischemia CELLULITIS RT FOOT Procedures EMERGENCY Referral ID Status Reason Start Date Expiration Date Visits Requ ested Visits Authorized [id number] 1 1 Encounter Details Date Type Department Care Team Description 08/06/2017 Hospital Encounter [facility] [place] [address] Social History Tobacco Use Types Packs/Day [...] Dolan MD [facility] [place], [place] [address] (Wo rk) 05/28/2022 Laboratory Appointment Lab 05/28/2022 Office Visit Cardiology Zulma Dolan MD [facility] [place] [address] [facility] [place] [address] 06/10/2022 Office Visit Dermatology Laura Scherer MD [facility] DR [address]-DERMAT [place], [place] [address] (Wo rk) documented as of this encounter Visit Diagnoses Not on filedocumented in this encounter Care Teams Founding Partner Relationship Specialty Start Date End Date Lovely Vicente MD PCP - General 04/16/[address] [place] [address] documented as of this encounter
--- OUTSIDE RECORDS SUMMARY | 2022-04-10 09:00 | XMS_ITS | Encounter Summary ---
:1945 [place] [address] Care Team Providers Name Role Phone Lovely Vicente MD Primary Care Provider Encounter Details Date Type Department Care Team Description 08/05/2017 Notes Only Vascular Surgery at [facility] [place], STACIE [facility] [place] [address] VASCULAR SURGERY [phone] [place], [place] [address] (Wo rk) Social History Tobacco [...] Dolan MD [facility] [place], [place] [address] (Wo rk) 05/28/2022 Laboratory Appointment Lab 05/28/2022 Office Visit Cardiology Zulma Dolan MD [facility] [place] [address] Liz Poole PA [facility] [place] [address] 06/10/2022 Office Visit Dermatology Laura Scherer MD [facility] DR TEJA GR-DERMAT [place], [place] [address] (Wo rk) documented as of this encounter Visit Diagnoses Not on filedocumented in this encounter Care Teams Clinical Associate Relationship Specialty Start Date End Date Lovely Vicente MD PCP - General 04/16/15 [facility] [address] [place] [address] documented as of this encounter
--- OUTSIDE RECORDS SUMMARY | 2022-04-10 09:00 | XMS_ITS | Encounter Summary ---
:1945 Author Organization [facility] [place] [address] Care Team Providers Name Role Phone Lovely Vicente MD Primary Care Provider Reason for Visit Reason Comments Foot Ulcer WOUND CHECK Auth/Cert Specialty Diagnoses / Procedures Referred By Contact Refer red To Contact Diagnoses Critical lower limb ischemia CELLULITIS RT FOOT Procedures EMERGENCY Referral ID Status Reason Start Date Expiration Date Visits Requ ested Visits Authorized [id number] 1 1 Encounter Details Date Type Department Care Team Description 08/06/2017 [facility] [place], [place] VASCULAR SURGERY [id number] [place] [address] [phone] Social History Tobacco Use Types Packs/Day Years [...] Smith MD - 08/06/2017 1:[address] [facility] staff: 1. RIGHT leg CLI Interval Hx: [...] Dolan MD [facility] Dr [place], [place] [address] (Wo ) 05/28/2022 Laboratory Appointment Lab 05/28/2022 Office Visit Cardiology Zulma Dolan MD [facility] [place] [address] Liz Poole PA [facility] [place] [address] 06/10/2022 Office Visit Dermatology Laura Scherer MD [facility] ER DR LEZ[address] RD-DERMAT [place], [place] [address] (Wo rk) documented as of this encounter Visit Diagnoses Diagnosis Critical lower limb ischemia Unspecified circulatory system disorder documented in this encounter Care Teams Hot Air Furnace Installer And Repairer Relationship Specialty Start Date End Date Lovely Vicente MD PCP - General 04/16/[address] [place], [place] [address] documented as of this encounter
--- OUTSIDE RECORDS SUMMARY | 2022-04-10 09:00 | XMS_ITS | Encounter Summary ---
:1945 Author Organization [facility] [place] [address] Care Team Providers Name Role Phone Lovely Vicente MD Primary Care Provider Reason for Visit Auth/Cert Specialty Diagnoses / Procedures Referred By Contact Refer red To Contact Diagnoses Critical lower limb ischemia CELLULITIS RT FOOT Procedures EMERGENCY Referral ID Status Reason Start Date Expiration Date Visits Requ ested Visits Authorized [id number] 1 1 Encounter Details Date Type Department Care Team Description 08/04/2017 Hospital Encounter XRay at [facility] Danette Maxwell Incisional pain [address] [place] [address] Dr Gomes, LOSS PREVENTION/SAFETY DISTRICT MANAGER [facility] [address] CARDIOLOGY [place], [place] [address] Social History Tobacco Use [...] Zulma Dolan MD [facility] [place], [place] [address] (Wo rk) 05/28/2022 Laboratory Appointment Lab 05/28/2022 Office Visit Cardiology Zulma Dolan MD [facility] [place] [address] Liz Poole PA [facility] [place] [address] 06/10/2022 Office Visit Dermatology Laura Scherer MD [facility] DR TEJA GR-DERMAT [place], [place] [address] (Wo rk) documented as [...] original. EXAMINATION: XR CHEST PA AND LATERAL (DBL Acquisition) CLINICAL HISTORY: Checking sternal stabi lity/assess wires [...] Daniele gutiérrez 08/04/2017 4:13 PM Danette Maxwell LOSS PREVENTION/SAFETY DISTRICT MANAGER IMG DX ORDERABLES documented in this encounter Visit Diagnoses Diagnosis Incisional pain Disturbance of skin sensation documented in this encounter Care Teams Box Office Attendant Relationship Specialty Start Date End Date Lovely Vicente MD PCP - General 04/16/[address] [place] [address] documented as of this encounter
--- OUTSIDE RECORDS SUMMARY | 2022-04-10 09:01 | XMS_ITS | Encounter Summary ---
:1945 Author Organization [facility] [place] [address] Care Team Providers Name Role Phone Lovely Vicente MD Primary Care Provider Encounter Details Date Type Department Care Team Description 07/29/2017 Transcribe Orders Laboratory Lovely Vicente MD [address] [address] [place] [address] [phone] (Wo rk) Social History Tobacco Use Types [...] [facility] er Dr [place] [address] (Wo rk) 05/28/2022 Laboratory Appointment Lab 05/28/2022 Office Visit Cardiology Zulma Dolan MD [facility] [place] [address] Liz Poole PA [facility] [place] [address] 06/10/2022 Office Visit Dermatology Laura Scherer MD [facility] ER DR TEJA GR-DERMAT [place], [place] [address] (Wo rk) documented as of this encounter Visit Diagnoses Not on filedocumented in this encounter Care Teams Bench Tool Maker Relationship Specialty Start Date End Date Lovely Vicente MD PCP - General 04/16/[address] [place] [address] documented as of this encounter
--- OUTSIDE RECORDS SUMMARY | 2022-04-10 09:01 | XMS_ITS | Encounter Summary ---
:1945 Author Organization [facility] [place] [address] Care Team Providers Name Role Phone Lovely Vicente MD Primary Care Provider Reason for Visit Reason Comments Foot Pain Auth/Cert Specialty Diagnoses / Procedures Referred By Contact Refer red To Contact Diagnoses Ischemic foot Procedures NAYE OBSVO Referral ID Status Reason Start Date Expiration Date Visits Requ ested Visits Authorized [id number] 1 1 Encounter Details Date Type Department Care Team Description 07/27/2017 Emergency 1 [facility] Lokesh Swenson MD [facility] [address] EMERGENCY [place] [address] Femoral artery pseudo-aneurysm, right; [facility] Tam Bauman MD [facility] [address] HOSPITAL [place] [address] [place] [address] Social History Tobacco Use Types Packs/Day [...] Gregory Fatima Patient Age: 72 y.o. Language: Sri [place]ank[place] Race: White Ethnicity: Not nor Admit date: [...] please contact your inpatient physician through the [facility] Photographic Plate [employer] . Issues after hours and on weekends [...] RLE critical limb ischemia, who presented to [facility] with worsening RLE pain. Pt post-op course after CABG was significant for paroxysmal Afib, and he was started on Coumadin given elevated FQOQ3AILES score. He presented 2 weeks following that, on 07/20, with RLE pain/pallor andwas found to have critical limb ischemia in setting of subtherapeutic INR, pseudoaneurysm Rt WELDER METAL FAB and occlusion b/l ant tibial arteries. He [...] in the last 7068 hours. Invalid input(s): [id number] Recent Labs 07/08/17 0400 07/07/17 0515 07/06/17 [...] (it was low at 1.6 here at [facility]) 7. Use the tramadol if dilaudid or tylenol is not working 8. Stop taking the potassium supplement - your blood potassium level was elevated. Ask your doctors at future visits if this should be restarted. 9. Antibiotic for 5 days recommended by cardiothoracic surgery for chest wound drainage Follow-Up Appointments Vascular surgery as previously schedule Your Inpatient Doctor(s) at [facility]: CARLOS ALBERTO ROSALES MD General Instructions None Future Appointments and Orders Future Appointments Provider Department Dept Phone 07/30/2017 8:30 AM OSWALDO, THREE L Lab 3L [facility] [phone] 07/30/2017 9:40 AM Danette Maxwell APRN Cardiology at [place] [phone] 08/04/2017 1:00 PM Daniele Mooney [place] Vascular Lab at [place] [phone] 08/04/2017 2:15 PM Arik Clement MD Vascular Surgery at [place] [phone] 08/11/2017 10:00 AM [facility] ROOM 2 XRay at [place] [phone] Please go to Curatorial Specialist Area 3T ([place] Location). 08/11/2017 11:00 AM Yuan Retana MD Cardiac Surgery at [place] [phone] 09/07/2017 3:00 PM LAB, THREE L Lab 3L [facility] [phone] 09/07/2017 4:00 PM Luz Prescott MD Endocrinology at [place] [phone] Discharge References/Attachments None documented in this encounter [...] (it was low at 1.6 here at [facility]) 3. Use the tramadol if dilaudid or tylenol is not working 4. Stop taking the potassium supplement - your blood potassium level was elevated. Ask your doctors at future visits if this should be restarted. 5. Antibiotic for 5 days recommended by cardiothoracic surgery for chest wound drainage Follow-Up Appointments Vascular surgery as previously schedule Your Inpatient Doctor(s) at [facility]: CARLOS ALBERTO ROSALES MD documented in this [...] Gas) No results found for: PHART, PO2ART, GBC1QOT Assessment/Plan: 72 y.o. male s/p CABG in [...] intervention: Education Nutrition Recommendations: Recommend continuation of [facility], CHO2 diet order Patient and denied need [...] Orders Diet Daily Healthy Menu Choices/Cardiac diet ([facility]-Diet) 60/ CHO counting level 2 Frequency: Effective Now Number of Occurrences: Until Specified Admit Weight: 83.92 kg Estimated body mass index is 28.13 kg/(m^2) as calculated from the following: Height as of this encounter: 172.7 cm (5' 8). Weight as of this encounter: 83.9 kg (185 lb). [place] body weight: 68.4 kg (150 lb 12.7 [...] RLE critical limb ischemia, who presented to [facility] with worsening RLE pain. Visited with patient [...] spent >30 minutes (Day of Discharge Code 04161) involved in the final examination of the [...] Melanoma ID: 72 y.o. Male presents to [facility] with persistent pain b/l lower extremities History of Present Illness: HPI 72 y.o. male with PMH ASCVD s/p CABG (07/07/17), MARIA VICTORIA on CPAP QHS, HTN, HLD, DM2, with recent hospitalization for RLE critical limb ischemia, who presented to [facility] with worsening RLE pain. Pt post-op course after CABG was significant for paroxysmal Afib, and he was started on Coumadin given elevated ULGZ3NTLTD score. He presented 2 weeks following that, on 07/20, with RLE pain/pallor andwas found to have critical limb ischemia in setting of subtherapeutic INR, pseudoaneurysm Rt WELDER METAL FAB and occlusion b/l ant tibial arteries. He [...] [facility] MAIN OR ??? PRO CABG, ARTERIAL, SINGLE N/A 07/07/2017 @CABG, USING ARTERIAL GRAFT;SINGLE ARTERIAL GRAFT (WRVU 33.75) performed by Yuan Retana MD at [facility] MAIN OR ??? PRO CABG, ARTERY-VEIN, TWO N/A 07/07/2017 @CABG, TWO VENOUS GRAFTS & ARTERIAL GRAFT (WRVU 7.93) performed by Yuan Retana MD at [facility] MAIN OR ??? PRO COLONOSCOPY, REMV LESN, SNARE 01/16/2014 COLONOSCOPY, POLYPECTOMY, REMOVAL LESION BY SNARE performed by Nohemi Jaimes MD at [facility] ENDOSCOPY ??? PRO ENDOSCOPY W/VIDEO-ASST VEIN HARVEST, CABG Right 07/07/2017 ENDOSCOPIC HARVEST VEIN(S) FOR CABG (WRVU 0.31) performed by Yuan Retana MD at [facility] MAIN OR ??? PRO THYROIDECTOMY 03/28/2013 THYROIDECTOMY, TOTAL OR COMPLETE performed by Manny Mcknight MD at [facility] MAIN OR Prior To Admission Medications: [...] Procedure Component Value Units Date/Time Blood culture [[id number]] Collected: 07/09/1739 Lab Status: Final result Specimen: Blood from Arm, Right Updated: 07/14/17701 Blood Culture No growth at 5 days. Blood culture [[id number]] Collected: 07/09/170 Lab Status: Final result Specimen: [...] limb ischemia following CABG, who presented to [facility] ED from home with persistent B/L LE [...] continued Diet Daily Healthy Menu Choices/Cardiac diet ([facility]-Diet) 60/60/75 CHO counting level 2Cardiac, low salt, CHO 2 Discharge planning Pending improvement in pain control PT/OT/Speech PT ordered Lines/Access PIV Ocasio catheter No DVT/GI Prophylaxis Lovenox bridge to Coumadin, SCD. Code status Full Code Family PCP Lovely Vicente MD [phone] Attestation Please see my note for details [...] w/Hank Swenson re same. New orders obtained. aJzmín Proctor RN - 07/27/2017 1:11 AM EST [...] encounter Miscellaneous Notes Plan of Care - Kinsman-Joyce Damian, PT - 07/27/2017 3:26 PM EST [...] Anticipated Discharge Disposition: home with assist Pager: [phone] JOYCE KING, PT Inpatient Physical Therapy 2017 [...] a lovenox bridge. Mr. Fatima returns to [facility] ED tonight because of ongoing pain in [...] [facility] ??? PRO CABG, ARTERIAL, SINGLE N/A 07/07/2017 @CABG, USING ARTERIAL GRAFT;SINGLE ARTERIAL GRAFT (WRVU 33.75) performed by Yuan Retana MD at [facility] MAIN OR ??? PRO CABG, ARTERY-VEIN, TWO N/A 07/07/2017 @CABG, TWO VENOUS GRAFTS & ARTERIAL GRAFT (WRVU 7.93) performed by Yuan Retana MD at [facility] MAIN OR ??? PRO COLONOSCOPY, REMV LESN, SNARE 01/16/2014 COLONOSCOPY, POLYPECTOMY, REMOVAL LESION BY SNARE performed by Nohemi Jaimes MD at [facility] ENDOSCOPY ??? PRO ENDOSCOPY W/VIDEO-ASST VEIN HARVEST, CABG Right 07/07/2017 ENDOSCOPIC HARVEST VEIN(S) FOR CABG (WRVU 0.31) performed by Yuan Retana MD at [facility] MAIN OR ??? PRO THYROIDECTOMY 03/28/2013 THYROIDECTOMY, TOTAL OR COMPLETE performed by Manny Mcknight MD at [facility] MAIN OR MEDICATIONS: No current facility-administered [...] up in clinic 1-2 weeks after discharge. [facility] Vascular Surgery Plan of Care [...] Zulma Dolan MD [facility] [place], [place] [address] (Wo rk) 05/28/2022 Laboratory Appointment Lab 05/28/2022 Office Visit Cardiology Zulma Dolan MD [facility] [place] [address] Liz Poole PA [facility] [place] [address] 06/10/2022 Office Visit Dermatology Laura Scherer MD [facility] [address] TEJA GR-DERMAT OLOGY [place], [place] [address] (Wo rk) documented as [...] section. TYPE AND SCREEN STAT 07/27/2017 12:53 ([facility]/CGP/SHANDA) AM EST BASIC METABOLIC PANEL STAT 07/27/2017 12:53 Re sults for this (NON-FASTING) AM EST procedure are in the results section. documented in this encounter Results POCT Glucose (07/27/2017 11:53 AM EST) P athologist Signature POC Glucose 175 65 - 199 [facility] mg/dL [facility] Comment: Supplemental ranges: <140 mg/dL before meals <180 mg/dL all other times of the day Specimen Anatomical Collection Method Collection Time Receive d Time (Source) Location / / Volume Laterality Blood specimen 07/27/2017 11:53 8 (specimen) AM EST 11:53 AM EST Tam Bauman MD POINT OF CARE TEST ORDERABLE S Performing Organization Address City/State/[place] [address] Arterial Duplex Leg, Unil (07/27/2017 7:40 AM EST) Component Value Ref Test Analysis Performed At Patholo gist Range Method Time Signature VB Text Department: Vascular Surgery Lab VASCUBASE Report Patient: [id number] (GREGORY FATIMA) CPT: 14936 ICD10: I97.610;I72.4;Z09 Referring Physician: TAM BAUMAN ?? [...] / Volume Laterality 07/27/2017 7:40 AM EST Tma Bauman MD VASCULAR ORDERABLES Performing Organization Address City/[facility]/ZIP Code Phon e Number VASCUBASE POCT Glucose (07/27/2017 6:51 AM EST) P athologist Signature POC Glucose 96 65 - 199 [facility] mg/dL [facility] Comment: Supplemental ranges: <140 mg/dL before meals <180 mg/dL all other times of the day Specimen Anatomical Collection Method Collection Time Receive d Time (Source) Location / / Volume Laterality Blood specimen 07/27/2017 6:51 AM 018 6:51 (specimen) EST AM EST Tam Bauman MD POINT OF CARE TEST ORDERABLE S Performing Organization Address City/[facility]/ZIP [facility] Phon e Number [address] ABORH Recheck Status (07/27/2017 [...] BANK ORDERABLES Performing Organization Address City/[facility]/[place] [address] Gold Tube HOLD (07/27/2017 12:53 AM EST) P athologist Signature Gold Hold Sample in [facility]. [facility] Specimen Anatomical Collection Method Collection Time Receive d Time (Source) Location / / Volume Laterality Blood specimen Venous Draw / 07/27/2017 12:53 07/27/19 18 1:01 (specimen) Unknown AM EST AM EST Angela Swenson MD CHEMISTRY ORDERABLES Performing Organization Address City/State/ZIP [place] [address] (ABNORMAL) Differential, Automated (07/27/2017 12:53 AM EST) Patholo gist Method Time Signature Neutrophils % 75.0 % [facility] Neutr Abs (ANC) 11.30 (H) 1.70 - [facility] 6.10 [facility] x10(3)/[facility] LABORATORY Lymphocytes % 9.9 % [facility] Lymphocytes Abs 1.5 0.9 - 3.2 [facility] x10(3)/[facility] LABORATORY Monocytes % 8.6 % [facility] Monocyte Abs 1.3 (H) 0.3 - 0.9 [facility] x10(3)/[facility] LABORATORY Eosinophils % 4.8 % [facility] Eosinophils Abs 0.7 (H) 0.0 - 0.4 [facility] x10(3)/[facility] LABORATORY Basophils % 0.8 % [facility] Basophils Abs 0.1 0.0 - 0.1 [facility] x10(3)/[facility] LABORATORY Immature Gran % 0.90 % [facility] [...] Gran Abs 0.13 (H) 0.00 - 0.04 x10(3)/[facility] LABORATORY Specimen Anatomical Collection Method Collection Time Receive d Time (Source) Location / / Volume Laterality Blood specimen 07/27/2017 12:53 8 1:00 (specimen) AM EST AM EST Resulting Agency Comment Spec In Lab Angela Swenson MD HEMATOLOGY ORDERABLES Performing Organization Address City/State/ZIP [place] [address] (ABNORMAL) Hemogram (07/27/2017 12:53 AM EST) Analysis Performed At Patho logist Time Signature WBC 15.0 (H) 4.0 - 9.5 [facility] x[facility](3[facility] LABORATORY RBC 3.59 (L) 4.58 - [facility] 5.54 [facility] x10(6)/[facility] LABORATORY Hemoglobin 10.3 (L) 13.7 - [facility] 16.5 gm/dL [facility] Hematocrit 32.6 (L) 40.5 - [facility] 48.5 % [facility] MCV 90.8 82.9 - [facility] 93.1 [facility] LABORATORY MCH 28.7 27.5 - [facility] R[facility]AN 32.1 pg [facility] MCHC 31.6 (L) 32.0 - [facility] 35.7 gm/dL [facility] Platelets 322 145 - 357 [facility] x10(3)/[facility] RDWSD 48.7 (H) 36.0 - [facility] 45.0 [facility] LABORATORY RDWCV 14.7 (H) 11.4 - [facility] 13.8 % [facility] LABORATORY MPV 8.9 7.6 - 12.9 [facility] LABORATORY nRBC % Auto 0.0 % [facility] LABORATORY nRBC Abs Auto 0.000 0.000 - [facility] 0.000 [facility] x10(3)/[facility] LABORATORY Specimen Anatomical Collection Method Collection Time Receive d Time (Source) Location / / Volume Laterality Blood specimen 07/27/2017 12:53 8 1:00 (specimen) AM EST AM EST Resulting Agency Comment Spec In Lab Angela Swenson MD HEMATOLOGY ORDERABLES Performing Organization Address City/State/[place] [address] Antibody screen (07/27/2017 12:53 AM EST) Patholo gist Method Time Signature Ab Screen Negative [facility] LABORATORY Expires at 07/30/2017 KATALINA ZHAORYAN [id number] on: [facility] Specimen Anatomical Collection Method Collection Time Receive d Time (Source) Location / / Volume Laterality Blood specimen 07/27/2017 12:53 8 (specimen) AM EST 12:58 AM EST Resulting Agency Comment Spec In Lab Angela Swenson MD BLOOD BANK ORDERABLES Performing Organization Address City/[facility]/[place] [address] ABO/Rh Typing (07/27/2017 12:53 [...] BANK ORDERABLES Performing Organization Address City/[facility] [place] [address] (ABNORMAL) Prothrombin Time (07/27/2017 12:53 AM EST) P athologist Signature PT 19.1 (H) 11.8 - 14.0 [facility] [...] Organization Address City/State/ZIP [place] [address] (ABNORMAL) Basic Metabolic Panel (non-fasting) (07/27/2017 12:53 AM EST) athologist Signature Glucose Lvl 95 65 - 199 [facility] mg/dL [facility] Comment: Diabetes: >=200 mg/dL plus symp toms BUN 37 (H) 10 - 20 mg/dL [facility] LAB[facility] Creatinine 1.49 0.80 - [...] or in patients with acute kidney failure. [email or web address] Specimen Anatomical Collection Method Collection Time Receive d Time (Source) Location / / Volume Laterality Blood specimen 07/27/2017 12:53 8 1:00 (specimen) AM EST AM EST Resulting Agency Comment Spec In Lab Angela Swenson MD CHEMISTRY ORDERABLES Performing Organization Address City/State/ZIP [place] [address] documented in this encounter [...] documented in this encounter Care Teams Assistant Chief Of Police Relationship Specialty Start Date End Date Lovely Vicente MD PCP - General 04/16/15 [facility] [address] [place] [address] documented as of this encounter
--- OUTSIDE RECORDS SUMMARY | 2022-04-10 09:01 | XMS_ITS | Encounter Summary ---
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 Patient [...] SETUP performed by Manny Mcknight MD at [facility] MAIN OR ??? PRO CABG, ARTERIAL, SINGLE N/A 07/07/2017 @CABG, USING ARTERIAL GRAFT;SINGLE ARTERIAL GRAFT (WRVU 33.75) performed by Yuan Retana MD at [facility] MAIN OR ??? PRO CABG, ARTERY-VEIN, TWO N/A 07/07/2017 @CABG, TWO VENOUS GRAFTS & ARTERIAL GRAFT (WRVU 7.93) performed by Yuan Retana MD at [facility] MAIN OR ??? PRO COLONOSCOPY, REMFlash MOCK, SNARE 01/16/2014 COLONOSCOPY, POLYPECTOMY, REMOVAL LESION BY SNARE performed by Nohemi Jaimes MD at [facility] ENDOSCOPY ??? PRO ENDOSCOPY W/VIDEO-ASST VEIN HARVEST, CABG Right 07/07/2017 ENDOSCOPIC HARVEST VEIN(S) FOR CABG (WRVU 0.31) performed by Yuan Retana MD at [facility] MAIN OR ??? 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 Hank Zhang Vascular Surgery, PGY2 Pager #[phone] Associated attestation - Arik Clement MD - [...] Cardiology Zulma Dolan MD [facility] [place], [place] [address] (Wo rk) 05/28/2022 Laboratory Appointment Lab 05/28/2022 Office Visit Cardiology Zulma Dolan MD [facility] [place] [address] Liz Poole PA [facility] [place] [address] 06/10/2022 Office Visit Dermatology Laura Scherer MD [facility] [address]MAT [place], [place] [address] (Wo rk) documented as of [...] Department: Vascular Surgery Lab VASCUBASE Report Patient: [id number] (GREGORY FATIMA) CPT: 65298 ICD10: I82.541 Referring Physician: TAMIKO JIMÉNEZ ?? [...] Glucose 128 65 - 199 [facility] mg/dL [facility] Comment: Supplemental ranges: <140 mg/dL before meals <180 mg/dL all other times of the day Specimen Anatomical Collection Method Collection Time Receive d Time (Source) Location / / Volume Laterality Blood specimen 07/29/2017 2:28 PM 018 2:28 (specimen) EST PM EST Tamiko Jiménez MD POINT OF CARE TEST ORDERABLE S Performing Organization Address City/State/ZIP Code Phon e Number [address] (ABNORMAL) D-Dimer, Quantitative (07/29/2017 2:15 PM EST) [facility] Klick2Contact Method Time Signature D-Dimer, Quant 1,699 (H) 0 - 500 [facility] FEU ng/ml [facility] Comment: The D-Dimer assay is used [...] Organization Address City/State/[place] [address] (ABNORMAL) Differential, Automated (07/29/2017 2:15 PM EST) [facility] Klick2Contact Method Time Signature Neutrophils % 82.5 % [facility] Neutr Abs (ANC) 10.21 (H) 1.70 - [facility] 6.10 [facility] x10(3)/[facility] L LABORATORY Lymphocytes % 7.1 % [facility] Lymphocytes Abs 0.9 0.9 - 3.2 [facility] x10(3)/[facility] LABORATORY Monocytes % 6.5 % [facility] Monocyte Abs 0.8 0.3 - 0.9 [facility] x10(3)/[facility] LABORATORY Eosinophils % 2.7 % [facility] Eosinophils Abs 0.3 0.0 - 0.4 [facility] x10(3)/[facility] LABORATORY Basophils % 0.6 % [facility] Basophils Abs 0.1 0.0 - 0.1 [facility] x10(3)/[facility] LABORATORY Immature [...] Address City/State/[place] [address] (ABNORMAL) Hemogram (07/29/2017 2:15 PM EST) Analysis Performed At Patho logist Time Signature WBC 12.4 (H) 4.0 - 9.5 [facility] x10(3)/[facility] LABORATORY RBC 4.17 (L) 4.58 - [facility] 5.54 [facility] x10(6)/[facility] LABORATORY Hemoglobin 12.1 (L) 13.7 - [facility] 16.5 gm/dL [facility] Hematocrit 38.1 (L) 40.5 - [facility] 48.5 % [facility] MCV 91.4 82.9 - [facility] 93.1 [facility] LABORATORY MCH 29.0 27.5 - [facility] 32.1 pg [facility] MCHC 31.8 (L) 32.0 - [facility] 35.7 gm/dL [facility] Platelets 204 145 - 357 [facility] x10(3)/[facility] LABORATORY RDWSD 50.5 (H) 36.0 - [facility] 45.0 [facility] LABORATORY RDWCV 15.3 (H) 11.4 - [facility] 13.8 % [facility] MPV 9.4 7.6 - 12.9 [facility] LABORATORY nRBC % Auto 0.0 % [facility] nRBC Abs Auto 0.000 0.000 - [facility] 0.000 [facility] x10(3)/[facility] LABORATORY Specimen Anatomical Collection Method Collection Time Receive d Time (Source) Location / / Volume Laterality Blood specimen 07/29/2017 2:15 PM 018 2:36 (specimen) EST PM EST Resulting Agency Comment Spec In Lab Tamiko Jiménez MD HEMATOLOGY ORDERABLES Performing Organization Address City/State/[place] [address] (ABNORMAL) Prothrombin Time (07/29/2017 [...] City/State/ZIP Code Phon e Number [place] [phone] LAB[address]ORY [address] Arterial Duplex Leg, Unil (07/29/2017 11:50 AM EST) Component Value Ref Test Analysis Performed At [facility] Method Time Signature VB Text Department: Vascular Surgery Lab VASCUBASE Report Patient: [id number] (GREGORY FATIMA) CPT: 33093 ICD10: Z09;I97.610 Referring Physician: TAMIKO JIMÉNEZ ?? [...] Department: Vascular Surgery Lab VASCUBASE Report Patient: [id number] (GREGORY FATIMA) CPT: 21557 ICD10: I82.441 Referring Physician: TAMIKO JIMÉNEZ ?? [...] he calf. Notification: Marquis Pathak MD (pager #[phone]) was notif ied of the preliminary findings. [...] STAT documented in this encounter Care Teams Field Staff Manager Relationship Specialty Start Date End Date Lovely Vicente MD PCP - General 04/16/[address] [place] [address] [address] [place] [address] documented as of this encounter
--- OUTSIDE RECORDS SUMMARY | 2022-04-10 09:01 | XMS_ITS | Encounter Summary ---
:1945 Author Organization [facility] Address [facility] [place] [address] Care Team Providers Name Role Phone Lovely Vicente MD Primary Care Provider Encounter Details Date Type Department Care Team Description 07/29/2017 Transcribe Orders Laboratory Lovely Vicente, Coronary artery rupture; [facility] Medical Ischemic cardiomyopathy; [facility] [address] Atherosclerosis of [place] co ronary artery, angina presence unspecified, unspecified whether [place] or transplanted heart; [place], [place] [address] Essential hypertension, malignant; [address] [place], [place] 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, unspecified [facility] insulin use status [phone] [id number] Social History Tobacco Use Types Packs/Day Years [...] Description 05/28/2022 Appointment Cardiology Zulma Dolna MD [facility] er [address] [place], [place] [address] (Wo rk) 05/28/2022 Laboratory Appointment Lab 05/28/2022 Office Visit Cardiology Zulma Dolan MD [facility] [place] [address] Liz Poole PA [facility] [place] [address] 06/10/2022 Office Visit Dermatology Laura Scherer MD [facility] ER [address] [place], [place] [address] (Wo rk) Scheduled Orders Name Type Priority Associated Diagnoses Order S chedule Lab Use Only, Fax Lab Routine Coronary arter y rupture Expected: 07/29/2017 Request Ischemic cardiom yopathy (Approximate), Atherosclerosis of [place] Ex jose: 07/29/2018 coronary artery, angina presence unspecified, unspecified whether [place] or transplanted heart Essential hypertension, malignant documented as of this encounter Results Uric acid (08/04/2017 12:55 PM EST) P athologist Signature Uric Acid 7.1 3.5 - 8.5 [facility] mg/dL [facility]OR[facility]ORY Specimen Anatomical Collection Method Collection Time Receive d Time (Source) Location / / Volume Laterality Blood specimen 08/04/2017 12:55 8 1:01 (specimen) PM EST PM EST Resulting Agency Comment Spec In Lab Lovely Vicente MD CHEMISTRY ORDERABLES Performing Organization Address City/State/[place] [address] (ABNORMAL) Hemogram (08/04/2017 12:55 PM EST) Analysis Performed At Patho logist Time Signature WBC 15.8 (H) 4.0 - 9.5 [facility] x10(3[facility] LABORATORY RBC 3.48 (L) 4.58 - [facility] 5.54 [facility] x10(6)/[facility] LABORATORY Hemoglobin 9.9 (L) 13.7 - [facility] 16.5 gm/dL [facility] Hematocrit 31.4 (L) 40.5 - [facility] 48.5 % [facility] MCV 90.2 82.9 - [facility] 93.1 [facility] LABORATORY MCH 28.4 27.5 - [facility] 32.1 pg [facility] MCHC 31.5 (L) 32.0 - [facility] 35.7 gm/dL [facility] Platelets 310 145 - 357 [facility] x10(3)/[facility] LABORATORY RDWSD 51.8 (H) 36.0 - [facility] 45.0 [facility] LABORATORY RDWCV 15.8 (H) 11.4 - [facility] 13.8 % [facility]ORY MPV 8.9 7.6 - 12.9 [facility] LABORATORY nRBC % Auto 0.0 % [facility] LABORATORY nRBC Abs Auto 0.000 0.000 - [facility] 0.000 [facility] x10(3)/[facility] LABORATORY Specimen Anatomical Collection Method Collection Time Receive d Time (Source) Location / / Volume Laterality Blood specimen 08/04/2017 12:55 8 1:01 (specimen) PM EST PM EST Resulting Agency Comment Spec In Lab Lovely Vicente MD HEMATOLOGY ORDERABLES Performing Organization Address City/State/ZIP Code Phon e Number [place] [phone]ORY [address] (ABNORMAL) Comprehensive metabolic panel (non-fasting) (08/04/2017 12:55 PM EST) P athologist Signature Glucose Lvl 208 (H) 65 - 199 [facility] mg/dL [facility] Comment: Diabetes: >=200 mg/dL [...] or in patients with acute kidney failure. [email or web address] Specimen Anatomical Collection Method Collection Time Receive d Time (Source) Location / / Volume Laterality Blood specimen 08/04/2017 12:55 8 1:01 (specimen) PM EST PM EST Resulting Agency Comment Spec In Lab Lovely Vicente MD CHEMISTRY ORDERABLES Performing Organization Address City/State/[place] [address] (ABNORMAL) Hemoglobin A1c (08/04/2017 [...] Avg Gluc See note mg/dL [facility] Comment: Estimated Average [...] into estimated average glucose values. ??Diabetes Care 2008:31(8):2382-8022. Specimen Anatomical Collection Method Collection Time Receive d Time (Source) Location / / Volume Laterality Blood specimen 08/04/2017 12:55 8 1:01 (specimen) PM EST PM EST Resulting Agency Comment Spec In Lab Lovely Vicente MD CHEMISTRY ORDERABLES Performing Organization Address City/State/[place] [address] (ABNORMAL) Prothrombin Time (08/04/2017 12:55 PM EST) P athologist Signature PT 35.4 (H) 11.8 - 14.0 [facility] LABORATORY INR 3.5 (H) 0.9 [...] Organization Address City/State/[place] [address] documented in this encounter Visit Diagnoses Diagnosis Coronary artery rupture Acute myocardial infarction, unspecified site, episode of care unspecified Ischemic cardiomyopathy Other specified forms of chronic ischemi c heart disease Atherosclerosis of [place] coronary arter y, angina presence unspecified, unspecified whether [place] or transplanted heart Essential hypertension, malignant Diabetes mellitus due to underlying cond ition with diabetic nephropathy, unspecified [facility] insulin use status documented in this encounter Care Teams Lute Packer Or Applier Relationship Specialty Start Date End Date Lovely Vicente MD PCP - General 04/16/[address] [place] [address] documented as of this encounter
--- OUTSIDE RECORDS SUMMARY | 2022-04-10 09:01 | XMS_ITS | Encounter Summary ---
:1945 [place] [address] Care Team Providers Name Role Phone Lovely Vicente MD Primary Care Provider Encounter Details Date Type Department Care Team Description 08/04/2017 Notes Only Cardiac Surgery Makayla Wilson PROCESS TREATER [facility] [place] [address] CARDIAC SURGERY [phone] [place], [place] [address] (Wo rk) Social History Tobacco Use Types Packs/Day Years Used Date Former Smoker Cigarettes 3 5 Quit: 07/26/18 69 Smokeless Tobacco: Never Used Alcohol Use Standard Drinks/Week Comments No 0 (1 standard drink = 0.6 oz pure alcoho l) Sex Assigned at Date Recorded Not on file documented as of this encounter Progress Notes aMkayla Wilson APRN - 08/04/2017 3:54 PM EST [...] [facility] [address] [place], [place] [address] (Wo rk) 05/28/2022 Laboratory Appointment Lab 05/28/2022 Office Visit Cardiology Zulma Dolan MD [facility] [place] [address] Liz Poole PA [facility] [place] [address] 06/10/2022 Office Visit Dermatology Laura Scherer MD [facility] DR [address] [facility] [place] [place] [address] (Wo rk) documented as of this encounter Visit Diagnoses Not on filedocumented in this encounter Care Teams Ski Patrol Officer Relationship Specialty Start Date End Date Lovely Vicente MD PCP - General 04/16/[address] [place] [address] documented as of this encounter
--- OUTSIDE RECORDS SUMMARY | 2022-04-10 09:01 | XMS_ITS | Encounter Summary ---
:1945 Author Organization [facility] [place] [address] Care Team Providers Name Role Phone Lovely Vicente MD Primary Care Provider Reason for Visit Reason Comments Pain Management Ankle Pain Toe Pain Encounter Details Date Type Department Care Team Description 07/30/2017 Office Visit Pain Management at [facility] Soares, Per ipheral neuropathy Bland FELT HAT POUNCING OPERATOR HAND due to ischemia [facility] [address] [place], [place], [place] [phone] Social History Tobacco Use Types Packs/Day Years [...] Soares APRN - 07/30/2017 1:45 PM EST [facility] [place] [address] Phone: PAIN MANAGEMENT NEW PATIENT / CONSULTATION NOTE DATE OF VISIT 07/30/2017 Patient Don Fatima 1945 REFERRING PROVIDER Lovely Vicente MD [address] [place] [id number] PRIMARY CARE PROVIDER Lovely Vicente MD CHIEF [...] PAST THERAPIES: Nothing MEDICATIONS The [place] Prescription Monitoring Program was checked and no [...] referral, Lovely Vicente MD [address] [place] [address]. [facility] Soares, MSN, CHURCH HISTORY TEACHER-BC, FELT HAT POUNCING OPERATOR HAND Nurse Practitioner [facility] documented in this encounter Plan of Treatment Upcoming Encounters Date Type Specialty Care Team Description 05/28/2022 Appointment Cardiology Zulma Dolan MD [facility] [place], [place] [address] (Wo rk) 05/28/2022 Laboratory Appointment Lab 05/28/2022 Office Visit Cardiology Zulma Dolan MD [facility] [place] [address] Liz Poole PA [facility] [place] [address] 06/10/2022 Office Visit Dermatology Laura Scherer MD [facility] [address] [place], [place] [address] (Wo rk) documented as of this encounter Visit Diagnoses Diagnosis 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
--- OUTSIDE RECORDS SUMMARY | 2022-04-10 09:01 | XMS_ITS | Encounter Summary ---
:1945 [place] [address] Care Team Providers Name Role Phone Lovely Vicente MD Primary Care Provider Encounter Details Date Type Department Care Team Description 07/29/2017 Telephone Pain Aurelia Crawford MD [facility] [place] [address] PAIN CLINIC [phone] [place], [place] [address] (Wo rk) Social History Tobacco [...] [facility] Dr [place], [place] [address] (Wo rk) 05/28/2022 Laboratory Appointment Lab 05/28/2022 Office Visit Cardiology Zulma Dolan MD [facility] [place] [address] Liz Poole PA [facility] [place] [address] 06/10/2022 Office Visit Dermatology Laura Scherer MD [facility] [address] [place], [place] [address] (Wo rk) documented as of this encounter Visit Diagnoses Not on filedocumented in this encounter Care Teams General Merchandise Manager Relationship Specialty Start Date End Date Lovely Vicente MD PCP - General 04/16/[address] [place] [address] [address] [place] [address] documented as of this encounter
--- OUTSIDE RECORDS SUMMARY | 2022-04-10 09:01 | XMS_ITS | Encounter Summary ---
:1945 [place] [address] Care Team Providers Name Role Phone Lovely Vicente MD Primary Care Provider Reason for Visit Reason Onset Date Comments Questions 07/16/2017 fluid retention Encounter Details Date Type Department Care Team Description 07/16/2017 Telephone Cardiology at [facility] Martha Comer, Questions ([facility] RN retention ) [place] [address] Social History Tobacco Use Types Packs/Day [...] the direct number to the HF team ([phone]). She is aware of his appt with STONE ENGRAVER Hans on 07/21/17 and the need for labs prior to that visit. verbalized good understanding of the current POC. documented in this encounter Plan of Treatment Upcoming Encounters Date Type Specialty Care Team Description 05/28/2022 Appointment Cardiology Zulma Dolan MD [facility] [address] [place], [place] [address] (Wo rk) 05/28/2022 Laboratory Appointment Lab 05/28/2022 Office Visit Cardiology Zulma Dolan MD [facility] [place] [address] Liz Poole PA [facility] [place] [address] 06/10/2022 Office Visit Dermatology Laura Scherer MD [facility] [address] [place], [place] [address] (Wo rk) documented as of this encounter Visit Diagnoses Not on filedocumented in this encounter Care Teams Intake Rn Relationship Specialty Start Date End Date Lovely Vicente MD PCP - General 04/16/[address] [place] [address] documented as of this encounter
--- OUTSIDE RECORDS SUMMARY | 2022-04-10 09:01 | XMS_ITS | Encounter Summary ---
:1945 [place] [address] Care Team Providers Name Role Phone Lovely Vicente MD Primary Care Provider Encounter Details Date Type Department Care Team Description 08/03/2017 Hospital Encounter Radiology Library at [place], Tommy Mijares [facility] [place] [address] VASCULAR SURGERY [phone] [place], [place] [address] (Wo rk) Social History Tobacco [...] Zulma Dolan MD [facility] [address] [place], [place] [address] (Wo rk) 05/28/2022 Laboratory Appointment Lab 05/28/2022 Office Visit Cardiology Zulma Dolan MD [facility] [place] [address] Liz Poole PA [facility] [place] [address] 06/10/2022 Office Visit Dermatology Laura Scherer MD [facility] [address] [place], [place] [address] (Wo rk) documented as [...] / Laterality Volume Narrative [facility] - 08/03/2017 6:03 PM EST This exam is for storage only and is aut o-finalizing. Arik Clement MD G FILM LIBRARY ORDERABLES Performing Organization Address City/State/ZIP Code Phon e Number [place], [place] documented in this encounter Visit Diagnoses Diagnosis Pain Generalized pain documented in this encounter Care Teams Vault Worker Relationship Specialty Start Date End Date Lovely Vicente MD PCP - General 04/16/[address] [place] [address] documented as of this encounter
--- OUTSIDE RECORDS SUMMARY | 2022-04-10 09:01 | XMS_ITS | Encounter Summary ---
:1945 Author Organization [facility] [place] [address] Care Team Providers Name Role Phone Lovely Vicente MD Primary Care Provider Encounter Details Date Type Department Care Team Description 07/24/2017 Telephone Vascular Surgery Melba Bob [facility] [place] [address] [facility] [phone] VASCULAR SURGERY [place], [place] [address] (Wo rk) Social History Tobacco [...] was discharged on Coumadin. ??He presented [facility] on 07/20 with mottled toes on the [...] MD [facility] Dr [place] [address] (Wo rk) 05/28/2022 Laboratory Appointment Lab 05/28/2022 Office Visit Cardiology Zulma Dolan MD [facility] [place] [address] Liz Poole PA [facility] [place] [address] 06/10/2022 Office Visit Dermatology Laura Scherer MD [facility] [address] [place], [place] [address] (Wo rk) documented as of this encounter Visit Diagnoses Not on filedocumented in this encounter Care Teams Geological Engineer Relationship Specialty Start Date End Date Lovely Vicente MD PCP - General 04/16/[address] [place] [address] documented as of this encounter
--- OUTSIDE RECORDS SUMMARY | 2022-04-10 09:01 | XMS_ITS | Encounter Summary ---
:1945 Author Organization [facility] [place] [address] Care Team Providers Name Role Phone Lovely Vicente MD Primary Care Provider Reason for Visit Reason Comments Follow-up Encounter Details Date Type Department Care Team Description 07/29/2017 Office Visit Cardiac Surgery at [facility] Yuan Retana MD S/P CABG x [address] [facility] [place] [address] CARDIOTHORACIC SURGERY [phone] [place], [place] [address] (Wo rk) Social [...] evaluation by vascular surgery. Yuan Retana MD [phone] documented in this encounter Plan of Treatment Upcoming Encounters Date Type Specialty Care Team Description 05/28/2022 Appointment Cardiology Zulma Dolan MD [facility] er [address] [place] [address] (Wo rk) 05/28/2022 Laboratory Appointment Lab 05/28/2022 Office Visit Cardiology Zulma Dolan MD [facility] [place] [address] Liz Poole PA [facility] [place] [address] 06/10/2022 Office Visit Dermatology Laura Scherer MD [facility] ER [address] [place], [place] [address] (Wo rk) documented as of this encounter Visit Diagnoses Diagnosis S/P CABG x 3 Postsurgical aortocoronary bypass status documented in this encounter Care Teams Regulatory Scientist Relationship Specialty Start Date End Date Lovely Vicente MD PCP - General 04/16/[address] [place] [address] documented as of this encounter
--- OUTSIDE RECORDS SUMMARY | 2022-04-10 09:01 | XMS_ITS | Encounter Summary ---
:1945 [place] [address] Care Team Providers Name Role Phone Lovely Vicente MD Primary Care Provider Reason for Visit Reason Comments Hospital Transfer cold foot post CABG Auth/Cert Specialty Diagnoses / Procedures Referred By Contact Refer red To Contact Diagnoses Critical lower limb ischemia Procedures NAYE IPI Referral ID Status Reason Start Date Expiration Date Visits Requ ested Visits Authorized [id number] 1 1 Encounter Details Date Type Department Care Team Description 07/20/2017 Hospital Encounter 4 Herminia Ibarra MD [facility] EMER[place] [address] Critical lower limb [facility] Arik Clement MD [facility] [place] [address] [place] [address] Social History Tobacco Use Types Packs/Day Years [...] home. Important Studies and Lab Data: Labs: Trigger.iogs Lab Results Component Value Date INR 1.5 [...] For any problems or questions please call [phone] ZELDA Smith, furnace attendant Nurse Clinician For issues on weeknights after 5pm and weekends please call [phone] and ask for the Vascular Fellow apron cleaner. General Instructions None Future Appointments and Orders Future Appointments Provider Department Dept Phone 08/04/2017 1:00 PM Daniele Mooney [place] [facility] [place] [phone] 08/04/2017 2:15 PM Arik Clement MD Vascular Surgery at [place] [phone] 09/07/2017 3:00 PM MAYRA CA[facility]CON Lab 3[facility] [phone] 09/07/2017 4:00 PM Luz Prescott MD Endocrinology at [place] [phone] Future Orders Complete By Expires Arterial Duplex Leg, Unil [VAS32 Custom] 07/27/2017 (Approximate) 01/26/2018 Process Instructions: There is no in-house vascular analytical lab technician available on weeknights (5pm-8am), weekends, or holidays. IF THIS IS A REQUEST FOR AN EMERGENT STUDY DURING THOSE HOURS, please have the senior provider responsible for the patient page the Vascular Surgery Fellow/Senior Resident apron cleaner to discuss options. Scheduling Instructions: Questions: Indication for study/signs & symptoms: Right femoral PSA s/p cardiac cath Question to be answered: bloodflow to PSA Laterality: Right Is there a RIGHT LOWER EXTREMITY graft?: No Lower limb right segments: Common Femoral Is there a stent?: No At which location will this be performed?: [place] Referral to Home Health - at DISCHARGE [[id number] CPT(R)] As directed Process Instructions: Scheduling Instructions: Comments: DOCUMENTATION FOR VNA SERVICES (INCLUDING THOSE PATIENTS WITH MEDICARE COVERAGE REQUIRING HOME VNA SERVICES AND/OR HOSPICE SERVICES) PATIENT'S LOCATION: Gregory Fatima [address] [place] [address] [place] [id number] (home) Cell: Telephone Information: Outreach Team Member's Name: self In discussion with the attending physician, it is certified that this patient is under their care and that they, or a Nurse Practitioner,Clinical Nurse specialist or Physician Oracle Architect who is working directly with them, had [...] CARE AGENCY: [facility] ([facility] for [place] [employer]-is in [place]) PHONE: [phone] FAX: [phone] Start of care: 24- 48 hours FOR [...] patient'sPCP: Lovely Vicente MD [address] [facility] [place] / [place] [address] All VNA agencies which cover the area [...] For any problems or questions please call [phone] ZELDA Smith, furnace attendant Nurse Clinician For issues on weeknights after 5pm and weekends please call [phone] and ask for the Vascular Fellow apron cleaner. documented in this encounter Medications at Time [...] RN - 07/20/2017 2:53 PM EST The patient/equal opportunity representative has been provided a list of Home Health Agencies/DME vendors which serve their preferred geographic area. A letter describing our affiliations was reviewed with them and theywere educated about their right to choose where referrals are placed. Patient requests referral to [facility]. PHONE: [phone] FAX: [phone]. Expected date of discharge: 07/20/2017 . Referral routed to the Senior Producer for matching with agency/vendor and to provide any required information. Naty Pulliam RN - 07/20/2017 11:37 AM EST The patient/equal opportunity representative has been provided a list of Home Health Agencies/DME vendors which serve their preferred geographic area. A letter describing our affiliations was reviewed with them and theywere educated about their right to choose where referrals are placed. Patient requests referral to [facility] ([facility] [place] [employer]- is in [facility] PHONE: [phone] FAX: [phone]. Expected date of discharge: 07/20/2017 . Referral routed to the Senior Producer for matching with agency/vendor and to provide any required information. Katina Pulliam RNe commerce developer Janneth Lee MD - 07/20/2017 7:29 [...] -ISS -pain control Discussed with Vascular Fellow apron cleaner. Chris Valadez MD PGY2 Pager [phone] documented in this encounter ED Notes Annita Reaves MD - 07/20/2017 3:15 PM EST Emergency Department Gregory Fatima is a 72 y.o. male who presents to [facility] with arterial thrombosis. History [...] Hospitalizations Within the Past 30 Days: [facility] 07/05/17 Anticipated Length Of [...] Health/Prescription Coverage: Primary Insurance: MEDICARE Secondary Insurance: [facility] Prescription Coverage: See above Preferred Pharmacy: [facility] Other: N/A Primary Care Provider: Lovely Vicente MD [phone] Patient/Caregiver Goals of Treatment: Patient plans to return home when medically ready Potential Needs for Transition of Care: Rehab/SNF: N/A Home Health: [facility] ([facility] [place] [employer]-is in [place]) PHONE: [phone] FAX: [phone] DME: N/A Dialysis: N/A Community Resources: N/A Transportation: Patient family will transport Other: N/A Anticipated Barriers to Discharge/Special Considerations: None Plan: Patient plans to return home with home health services when medically ready A member of the Care Management team will continue to monitor progress, follow for continuity of care and assist with transition of care planning. Naty Pulliam, RN Pager: [phone] ED Triage - Rayna Weir RN - 07/20/2017 12:28 AM EST Pt transferred from [place] for blue right foot and painful toes. [...] Dolan MD [facility] [address] [place], [place] [address] (Wo rk) 05/28/2022 Laboratory Appointment Lab 05/28/2022 Office Visit Cardiology Zulma Dolan MD [facility] [place] [address] Liz Poole PA [facility] [place] [address] 06/10/2022 Office Visit Dermatology Laura Scherer MD [facility] DR [address] [place], [place] [address] (Wo rk) documented as of this encounter Procedures Procedure Name Priority Date/Time Associated Comments Diagnosis RADIO DISC JOCKEY SCAN 09/02/2017 12:00 Res ults for this [...] TO LAB EST procedure are i n ([facility] the results section. APTT STAT 07/20/2017 2:25 AM Results f or this EST procedure are i n the results section. PROTHROMBIN TIME STAT 07/20/2017 2:25 AM Resul ts for this EST procedure are i n the results section. BASIC METABOLIC PANEL STAT 07/20/2017 2:25 AM Results for this (NON-FASTING) EST procedure are in the results section. documented in this encounter Results SCAN DOC: RADIO DISC JOCKEY (09/02/2017 12:00 AM EST) Narrative 09/02/2017 12:00 AM EST This result has an attachment that is no t available. Ordered by an unspecified provider. Scanning Provider MEDIA MGR SCAN EXT ORDR/RSLT POCT Glucose (07/20/2017 12:04 PM EST) P athologist Signature POC Glucose 189 65 - 199 [facility] mg/dL [facility] Comment: Supplemental ranges: <140 mg/dL before meals <180 mg/dL all other times of the day Specimen Anatomical Collection Method Collection Time Receive d Time (Source) Location / / Volume Laterality Blood specimen 07/20/2017 12:04 7 (specimen) PM EST 12:04 PM EST Arik Clement MD POINT OF CARE TEST ORDERABLE S Performing Organization Address City/State/[place] [address] (ABNORMAL) Differential, Automated (07/20/2017 10:34 AM EST) Patholo gist Method Time Signature Neutrophils % 84.3 % [facility] Neutr Abs (ANC) 14.27 (H) 1.70 - [facility] 6.10 [facility] x10(3)/[facility] LABORATORY Lymphocytes % 5.6 % [facility] Lymphocytes Abs 1.0 0.9 - 3.2 [facility] x10(3)/[facility] LABORATORY Monocytes % 6.1 % [facility] Monocyte Abs 1.0 (H) 0.3 - 0.9 [facility] x10(3)/[facility] LABORATORY Eosinophils % 2.4 % [facility] Eosinophils Abs 0.4 0.0 - 0.4 [facility] x10(3)/[facility] LABORATORY Basophils % 0.5 % [facility] Basophils Abs 0.1 0.0 - 0.1 [facility] x10(3)/[facility] LABORATORY Immature Gran % 1.10 % [facility] Comment: Immature granulocytes(IG's)percentage an d absolute count will include metamyelocytes, myelocytes, and promyelo cytes. Blood smears from CBCs yielding IG's will be scanned manually for concor dance. If this scan disagrees with the automated IG or if promyelocytes are not ed, a manual differential will be performed. Melisa Gran Abs 0.19 (H) 0.00 - 0.04 x10(3)/[facility] LABORATORY Specimen Anatomical Collection Method Collection Time Receive d Time (Source) Location / / Volume Laterality Blood specimen 07/20/2017 10:34 7 (specimen) AM EST 10:39 AM EST Resulting Agency Comment Spec In Lab Arik Clement MD HEMATOLOGY ORDERABLES Performing Organization Address City/State/[place] [address] (ABNORMAL) Hemogram (07/20/2017 10:34 AM EST) Analysis Performed At Patho logist Time Signature WBC 17.0 (H) 4.0 - 9.5 [facility] x10(3)/[facility] LABORATORY RBC 3.70 (L) 4.58 - [facility]54 [facility] x10(6)/[facility] LABORATORY Hemoglobin 10.8 (L) 13.7 - [facility] 16.5 gm/dL [facility] LABORATORY Hematocrit 33.4 (L) 40.5 - [facility] 48.5 % [facility] LABORATORY MCV 90.3 82.9 - [facility] 93.1 [facility] LABORATORY MCH 29.2 27.5 - [facility] RYNA 32.1 pg [facility] LABORATORY MCHC 32.3 32.0 - [facility] RYAN 35.7 gm/dL [facility] LABORATORY Platelets 211 145 - 357 [facility] x10(3)/[facility] LABORATORY RDWSD 49.1 (H) 36.0 - [facility] RYAN 45.0 [facility] LABORATORY RDWCV 14.7 (H) 11.4 - [facility] RYAN 13.8 % [facility] LABORATORY MPV 9.2 7.6 - 12.9 [facility] LAB[facility] nRBC % Auto 0.0 % [facility] nRBC Abs Auto 0.000 0.000 - [place] RYAN 0.000 [facility] x10(3)/[facility] LABORATORY Specimen Anatomical Collection Method Collection Time Receive d Time (Source) Location / / Volume Laterality Blood specimen 07/20/2017 10:34 7 (specimen) AM EST 10:39 AM EST Resulting Agency Comment Spec In Lab Arik Clement MD HEMATOLOGY ORDERABLES Performing Organization Address City/State/[place] [address] (ABNORMAL) APTT (07/20/2017 10:34 AM EST) athologist Signature PTT 79 (H) 25 - 35 sec [facility] [...] Clement MD HEMATOLOGY ORDERABLES Performing Organization Address City/[facility]/[place] [address] POCT Glucose (07/20/2017 7:41 AM EST) athologist Signature POC Glucose 174 65 - 199 [facility] mg/dL [facility] Comment: Supplemental ranges: <140 mg/dL [...] - [place]/ZIP Code Phon e Number [address] JULIAN, legs, multiple levels (07/20/2017 7:33 AM EST) Component Value Ref Test Analysis Performed At Patholo gist Range Method Time Signature VB Text Department: Vascular Surgery Lab VASCUBASE Report Patient: [id number] (GREGORY FATIMA) CPT: 49554 ICD10: I75.021;I99.8 Referring Physician: ARIK CLEMENT ?? [...] Department: Vascular Surgery Lab VASCUBASE Report Patient: [id number] (GREGORY FATIMA) CPT: 08756 ICD10: I97.610;I99.8 Referring Physician: ARIK CLEMENT ?? [...] POC Glucose 199 65 - 199 [facility] mg/dL [facility] Comment: Supplemental ranges: <140 mg/dL before meals <180 mg/dL all other times of the day Specimen Anatomical Collection Method Collection Time Receive d Time (Source) Location / / Volume Laterality Blood specimen 07/20/2017 3:41 AM 017 3:41 (specimen) EST AM EST Arik Clement MD POINT OF CARE TEST ORDERABLE S Performing Organization Address City/[facility]/ZIP [facility] [place] [address] Lactate, whole blood, send to lab (Leb/CGP) (07/20/2017 2:25 AM EST) athologist Signature Lactate WB 2.0 0.5 - 2.2 [facility] mmol/L [facility] Specimen Anatomical Collection Method Collection Time Receive d Time (Source) Location / / Volume Laterality Blood specimen Venous Draw / 07/20/2017 2:25 AM 2016 2:37 (specimen) Unknown EST AM EST Resulting Agency Comment Spec In Lab Zulma Samuel MD CHEMISTRY ORDERABLES Performing Organization Address City/[facility] Code Phon e Number [address] (ABNORMAL) APTT (07/20/2017 2:25 AM EST) athologist Signature PTT 36 (H) 25 - 35 sec [facility] [...] Reaves MD HEMATOLOGY ORDERABLES Performing Organization Address City/[facility]/[place] [address] (ABNORMAL) Prothrombin Time (07/20/2017 [...] Organization Address City/State/[place] [address] (ABNORMAL) Basic Metabolic Panel (non-fasting) (07/20/2017 2:25 AM EST) P athologist Signature Glucose Lvl 187 65 - 199 [facility] mg/dL [facility] Comment: Diabetes: >=200 mg/dL plus symp toms BUN 35 (H) 10 - 20 mg/dL [facility] Creatinine 1.51 (H) 0.80 - 1.50 mg/dL [facility] Sodium 134 (L) 135 - 145 mmol/L [facility] LABORATORY Potassium Not Perf 3.5 - 5.0 mmol/L [facility] Comment: Specimen hemolyzed. Called by: [facility], Read back by: Chitra Orantes, Date/Time:07/20/17 03:05. Please note: ??Patients with WBC >100,00 0 may have falsely elevated Potassium levels. ??For accurate Potassium quantif ication in these patients send serum separator tube (gold top) for subsequent determinations. ??Contact the Clinical Chemistry Laboratory if there are any qu estions. Chloride 92 (L) 98 - 107 mmol/L [facility] CO2 29 22 - 31 mmol/L [facility] Anion Gap 13 5 - 15 mmol/L [facility] Calcium 8.6 8.5 - 10.5 mg/dL [facility] Estimated GFR 46 (L) >=60 [facility] Comment: The reported eGFR should be multiplied b y 1.2 for patients. The MDRD is not an appropriate measure o f renal function for patients with body mass extremes or in patients with acute kidney failure. http://[employer]/DHnkdep http://[employer]/DHMCnkf Specimen Anatomical Collection Method Collection Time Receive d Time (Source) Location / / Volume Laterality Blood specimen 07/20/2017 2:25 AM 017 2:33 (specimen) EST AM EST Resulting Agency Comment Spec In Lab Annita Reaves MD CHEMISTRY ORDERABLES Performing Organization Address City/State/ZIP Code Phon e Number [place] [id number] documented in this encounter [...] documented in this encounter Care Teams Sales Development Representative Relationship Specialty Start Date End Date Lovely Vicente MD PCP - General 04/16/[address] [place] [address] documented as of this encounter
--- OUTSIDE RECORDS SUMMARY | 2022-04-10 09:01 | XMS_ITS | Encounter Summary ---
:1945 Author Organization [facility] [place] [address] Care Team Providers Name Role Phone Lovely Vicente MD Primary Care Provider Reason for Visit Reason Onset Date Comments Other 07/22/2017 lovenox bridge Encounter Details Date Type Department Care Team Description 07/22/2017 Telephone Cardiology at [facility] Court Cadena RN Other (lovenox bridge) [place] [address] Social History Tobacco Use Types Packs/Day [...] 4:49 PM EST VAMSI Del Castillo, at [facility], called earlier today with a question re: lovenox bridge for this patient who was recently discharged from [facility] r/t a blood clot. Discharge note faxed to [facility] (fax# [phone], Ph#: [phone]) which contains instructions r/t lovenox bridge as follows: Anticoagulation: on lovenox bridge to therapeutic coumadin for AFib. Goal INR 2-3. At discharge INR=1.5. The lovenox injections can stop when INR >2, coumadin will continue indefinitely. documented in this encounter Plan of Treatment Upcoming Encounters Date Type Specialty Care Team Description 05/28/2022 Appointment Cardiology Zulma Dolan MD [facility] [place], [place] [address] (Wo rk) 05/28/2022 Laboratory Appointment Lab 05/28/2022 Office Visit Cardiology Zulma Dolan MD [facility] [place] [address] Liz Poole PA [facility] [place] [address] 06/10/2022 Office Visit Dermatology Laura Scherer MD [facility] [address] [place], [place] [address] (Wo rk) documented as of this encounter Visit Diagnoses Not on filedocumented in this encounter Care Teams Engine Cleaner Relationship Specialty Start Date End Date Lovely Vicente MD PCP - General 04/16/15 [facility] [address] [place] [address] documented as of this encounter
--- OUTSIDE RECORDS SUMMARY | 2022-04-10 09:01 | XMS_ITS | Encounter Summary ---
:1945 [place] [address] Care Team Providers Name Role Phone Lovely Vicente MD Primary Care Provider Encounter Details Date Type Department Care Team Description 07/29/2017 Hospital Encounter Vascular Lab at Critic monica Huber lower limb [facility] [place] [id number] Social History Tobacco Use Types Packs/Day Years [...] Zulma Dolan MD [facility] [place], [place] [address] (Wo rk) 05/28/2022 Laboratory Appointment Lab 05/28/2022 Office Visit Cardiology Zulma Dolan MD [facility] [place] [address] Liz Poole PA [facility] [place] [address] 06/10/2022 Office Visit Dermatology Laura Scherer MD [facility] [address] [place], [place] [address] (Wo rk) documented as of this encounter Visit Diagnoses Diagnosis Critical lower limb ischemia Unspecified circulatory system disorder documented in this encounter Care Teams Poleyard Supervisor Relationship Specialty Start Date End Date Lovely Vicente MD PCP - General 04/16/[address] [place] [address] documented as of this encounter
--- OUTSIDE RECORDS SUMMARY | 2022-04-10 09:01 | XMS_ITS | Encounter Summary ---
:1945 Author Organization [facility] [place] [address] Care Team Providers Name Role Phone Lovely Vicente MD Primary Care Provider Reason for Visit Auth/Cert Specialty Diagnoses / Procedures Referred By Contact Refer red To Contact Diagnoses Critical lower limb ischemia CELLULITIS RT FOOT Procedures EMERGENCY Referral ID Status Reason Start Date Expiration Date Visits Requ ested Visits Authorized [id number] 1 1 Encounter Details Date Type Department Care Team Description 08/04/2017 [facility] [place] [facility] [place] [phone] Social History Tobacco Use Types Packs/Day Years [...] Appointment Cardiology Zulma Dolan MD [facility] [place], [place] [address] (Wo rk) 05/28/2022 Laboratory Appointment Lab 05/28/2022 Office Visit Cardiology Zulma [place]olan [place] [address] Liz Poole PA [facility] [place] [address] 06/10/2022 Office Visit Dermatology Laura Scherer MD [facility] [address] [place], [place] [address] (Wo rk) documented as [...] Analysis Performed At [facility] Range Method Time Signature VB Text Department: Vascular Surgery Lab VASCUBASE Report Patient: [id number] (DON HOANG) CPT: 65017 ICD10: I82.541 Referring Physician: MEÑO HUTSON ?? [...] extremity documented in this encounter Care Teams Transmission Tester Relationship Specialty Start Date End Date Lovely Vicente MD PCP - General 04/16/[address] [place] [address] documented as of this encounter
--- OUTSIDE RECORDS SUMMARY | 2022-04-10 09:01 | XMS_ITS | Encounter Summary ---
:1945 Author Organization [facility] Address [facility] [place] [address] Care Team Providers Name Role Phone Lovely Vicente MD Primary Care Provider Reason for Visit Auth/Cert Specialty Diagnoses / Procedures Referred By Contact Refer red To Contact Diagnoses Critical lower limb ischemia CELLULITIS RT FOOT Procedures EMERGENCY Referral ID Status Reason Start Date Expiration Date Visits Requ ested Visits Authorized [id number] 1 1 Encounter Details Date Type Department Care Team Description 08/04/2017 Laboratory Lab 3L Barbara Cardiomyopathy, unspecified type; Appointment [facility] Systolic congestive heart failure, unspecified congestive heart failure chronicity; Hospital Coronary artery rupture; [facility] Ischemic cardiomyopathy; Drive Atherosclerosis of [place] co ronary artery, angina presence unspecified, unspecified whether [place] or transplanted heart; [place], [place] Essential hyper tension, malignant; [id number] 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, unspecified joint terminal attack controller insulin use status [phone] Social History Tobacco Use Types Packs/Day Years [...] Dolan MD [facility] [address] [place] [address] (Wo rk) 05/28/2022 Laboratory Appointment Lab 05/28/2022 Office Visit Cardiology Zulma Dolan MD [facility] [place] [address] Liz Poole PA [facility] [place] [address] 06/10/2022 Office Visit Dermatology Laura Scherer MD [facility] ER [address] [place] [place], [place] [address] (Wo rk) documented as of this encounter Procedures Procedure Name Priority Date/Time Associated Diagnosis Comme nts HEMOGRAM Routine 08/04/2017 12:55 Essential Results for this PM EST hypertension, procedure are in malignant the results section. PROTHROMBIN TIME Routine 08/04/2017 12:55 Coronary artery Resu lts for this PM EST rupture procedure are in Ischemic the results cardiomyopathy section. Atherosclerosis of [place] coronary artery, angina presence unspecified, unspecified whether ak[place] or transplanted heart URIC ACID Routine 08/04/2017 [...] with the results diabetic section. nephropathy, unspecified senior living insulin use status Essential hypertension, malignant COMPREHENSIVE Routine 08/04/2017 12:55 Essential Results fo r this METABOLIC PANEL PM EST hypertension, procedure a re in (NON-FASTING) malignant the results section. documented in this encounter Results Uric acid (08/04/2017 12:55 PM EST) P athologist Signature Uric Acid 7.1 3.5 - 8.5 [facility] mg/dL [facility] Specimen Anatomical Collection Method Collection Time Receive d Time (Source) Location / / Volume Laterality Blood specimen 08/04/2017 12:55 8 1:01 (specimen) PM EST PM EST Resulting Agency Comment Spec In Lab Lovely Vicente MD CHEMISTRY ORDERABLES Performing Organization Address City/[facility]/[place] [address] (ABNORMAL) Hemogram (08/04/2017 12:55 PM EST) Analysis Performed At Patho logist Time Signature WBC 15.8 (H) 4.0 - 9.5 [facility] x10(3)/[facility] LABORATORY RBC 3.48 (L) 4.58 - [facility] RYAN 5.54 [facility] x10(6)/[facility] LABORATORY Hemoglobin 9.9 (L) 13.7 - [facility] 16.5 gm/dL [facility] Hematocrit 31.4 (L) 40.5 - [facility] 48.5 % [facility] MCV 90.2 82.9 - [facility] 93.1 [facility] LABORATORY MCH 28.4 27.5 - [facility] 32.1 pg [facility] MCHC 31.5 (L) 32.0 - [facility] 35.7 gm/dL [facility] Platelets 310 145 - 357 [facility] x10(3)/[facility] LABORATORY RDWSD 51.8 (H) 36.0 - [facility] 45.0 [facility] LABORATORY RDWCV 15.8 (H) 11.4 - [facility] RYAN 13.8 % [facility] MPV 8.9 7.6 - 12.9 [facility] LABORATORY nRBC % Auto 0.0 % [facility] nRBC Abs Auto 0.000 0.000 - [facility] 0.000 [facility] x10(3)/[facility] LABORATORY Specimen Anatomical Collection Method Collection Time Receive d Time (Source) Location / / Volume Laterality Blood specimen 08/04/2017 12:55 8 1:01 (specimen) PM EST PM EST Resulting Agency Comment Spec In Lab Lovely Vicente MD HEMATOLOGY ORDERABLES Performing Organization Address City/State/[place] [address] (ABNORMAL) Comprehensive metabolic panel (non-fasting) (08/04/2017 12:55 PM EST) athologist Signature Glucose Lvl 208 (H) 65 - 199 [facility] mg/dL [facility] Comment: Diabetes: >=200 mg/dL plus symp toms BUN 32 (H) 10 - 20 mg/dL [facility] Creatinine 1.58 (H) 0.80 - 1.50 mg/dL [facility] [...] Total Protein 6.9 6.1 - 8.0 gm/dL [facility] Albumin 3.4 3.2 - 5.2 gm/dL [facility] AST 20 0 - 39 unit/L [facility] ALT 21 0 - 55 unit/L [facility] Alk Phos 93 40 - 120 unit/L [facility] Total Bilirubin 0.4 0.2 - 1.3 mg/dL [facility] Estimated GFR 43 (L) >=60 [facility] Comment: The reported eGFR should be multiplied b y 1.2 for patients. The MDRD is not an appropriate measure o f renal function for patients with body mass extremes or in patients with acute kidney failure. http://SPORTLOGiQ/DHnkdep http://SPORTLOGiQ/DHMCnkf Specimen Anatomical Collection Method Collection Time Receive d Time (Source) Location / / Volume Laterality Blood specimen 08/04/2017 12:55 8 1:01 (specimen) PM EST PM EST Resulting Agency Comment Spec In Lab Lovely Vicente MD CHEMISTRY ORDERABLES Performing Organization Address City/State/ZIP Code Phon e Number [place] [id number]OS[address] LAB[address]ORY Drive (ABNORMAL) Hemoglobin A1c (08/04/2017 12:55 PM EST) Analysis Performed At Patho logist Time Signature Hemoglobin A1C 6.2 (H) 4.3 - 5.6 [facility] [...] into estimated average glucose values. ??Diabetes Care 2008:31(8):8215-4256. Specimen Anatomical Collection Method Collection Time Receive d Time (Source) Location / / Volume Laterality Blood specimen 08/04/2017 12:55 8 1:01 (specimen) PM EST PM EST Resulting Agency Comment Spec In Lab Lovely Vicente MD CHEMISTRY ORDERABLES Performing Organization Address [facility] [place] [address] (ABNORMAL) Prothrombin Time (08/04/2017 12:55 PM EST) P athologist Signature PT 35.4 (H) 11.8 - 14.0 [facility] LABORATORY INR 3.5 (H) 0.9 - 1.1 [facility] [...] Vicente MD HEMATOLOGY ORDERABLES Performing Organization Address [facility] [place] [address] (ABNORMAL) pro-Brain Natriuretic Peptide (08/04/2017 12:55 PM EST) P athologist Signature ProBNP 3,133 (H) <=125 [facility] pg/mL [facility] Specimen Anatomical Collection Method Collection Time Receive d Time (Source) Location / / Volume Laterality Blood specimen 08/04/2017 12:55 8 1:01 (specimen) PM EST PM EST Resulting Agency Comment Spec In Lab Danette Maxwell APRN CHEMISTRY ORDERABLES Performing Organization Address City/State/[place] [address] documented in this encounter Visit Diagnoses Diagnosis Cardiomyopathy, unspecified type Systolic congestive heart failure, unspe cified congestive heart failure chronicity Coronary artery rupture Acute myocardial infarction, unspecified site, episode of care unspecified Ischemic cardiomyopathy Other specified forms of chronic ischemi c heart disease Atherosclerosis of [place] coronary arter y, angina presence unspecified, unspecified whether [place] or transplanted heart Essential hypertension, malignant Diabetes mellitus due to underlying cond ition with diabetic nephropathy, unspecified joint terminal attack controller insulin use status documented in this encounter Care Teams Fleece Tier Relationship Specialty Start Date End Date Lovely Vicente MD PCP - General 04/16/[address] [place] [address] documented as of this encounter
--- OUTSIDE RECORDS SUMMARY | 2022-04-10 09:01 | XMS_ITS | Encounter Summary ---
:1945 Author Organization [facility] [place] [address] Care Team Providers Name Role Phone Lovely Vicente MD Primary Care Provider Reason for Visit Auth/Cert Specialty Diagnoses / Procedures Referred By Contact Refer red To Contact Diagnoses Critical lower limb ischemia CELLULITIS RT FOOT Procedures EMERGENCY Referral ID Status Reason Start Date Expiration Date Visits Requ ested Visits Authorized [id number] 1 1 Encounter Details Date Type Department Care Team Description 08/04/2017 Laboratory Appointment Lab 3L [facility] [place] [address] Social History Tobacco Use Types Packs/Day [...] MD [facility] [place] [address] Liz Poole PA [facility] [place] [address] 06/10/2022 Office Visit Dermatology Laura Scherer MD [facility] [address] [place], [place] [address] (Wo rk) documented as of this encounter Visit Diagnoses Not on filedocumented in this encounter Care Teams Science Editor Relationship Specialty Start Date End Date Lovely Vicente MD PCP - General 04/16/15 [facility] [address] [place], [place] [address] documented as of this encounter
--- OUTSIDE RECORDS SUMMARY | 2022-04-10 09:01 | XMS_ITS | Encounter Summary ---
:1945 [place] [address] Care Team Providers Name Role Phone Lovely Vicente MD Primary Care Provider Encounter Details Date Type Department Care Team Description 08/03/2017 Hospital Encounter Radiology Library at [place], Tommy Mijares [facility] [place] [address] VASCULAR SURGERY [phone] [place], [place] [address] (Wo rk) Social History [...] MD [facility] [address] [place], [place] [address] (Wo rk) 05/28/2022 Laboratory Appointment Lab 05/28/2022 Office Visit Cardiology Zulma Dolan MD [facility] [place] [address] Liz Poole PA [facility] [place] [address] 06/10/2022 Office Visit Dermatology Laura Scherer MD [facility] DR [address] [place], [place] [address] (Wo rk) documented as [...] Laterality Volume Narrative [facility] - 08/03/2017 6:01 PM EST This exam is for storage only and is aut o-finalizing. Arik Clement MD G FILM LIBRARY ORDERABLES Performing Organization Address City/State/ZIP Code Phon e Number [place], [place] documented in this encounter Visit Diagnoses Diagnosis Pain Generalized pain documented in this encounter Care Teams Mower Operator Relationship Specialty Start Date End Date Lovely Vicente MD PCP - General 04/16/[address] [place] [address] documented as of this encounter
--- OUTSIDE RECORDS SUMMARY | 2022-04-10 09:01 | XMS_ITS | Encounter Summary ---
:1945 Author Organization [facility] [address] Care Team Providers Name Role Phone Lovely Vicente MD Primary Care Provider Reason for Visit Reason Comments Deep Vein Thrombosis Auth/Cert Specialty Diagnoses / Procedures Referred By Contact Refer red To Contact Diagnoses Critical lower limb ischemia CELLULITIS RT FOOT Procedures EMERGENCY Referral ID Status Reason Start Date Expiration Date Visits Requ ested Visits Authorized [id number] 1 1 Encounter Details Date Type Department Care Team Description 08/04/2017 Office Visit Vascular Surgery at [facility] itical lower limb [facility] [address] [place], [place] VASCULAR SURGERY [address] [place] [address] [phone] Social History Tobacco Use Types Packs/Day Years [...] was discharged on Coumadin. ??He presented [facility] [place] [facility] with mottled toes on the [...] Zulma Dolan MD [facility] [place] [address] Liz Poole PA [facility] [place] [address] 06/10/2022 Office Visit Dermatology Laura Scherer MD [facility] ER DR [address] [place], [place] [address] (Wo rk) documented as of this encounter Visit Diagnoses Diagnosis Critical lower limb ischemia Unspecified circulatory system disorder documented in this encounter Care Teams Self Pay Collector Relationship Specialty Start Date End Date Lovely Vicente MD PCP - General 04/16/15 [facility] [address] [place], [place] [address] documented as of this encounter
--- OUTSIDE RECORDS SUMMARY | 2022-04-10 09:01 | XMS_ITS | Encounter Summary ---
:1945 [place] [address] Care Team Providers Name Role Phone Lovely Vicente MD Primary Care Provider Encounter Details Date Type Department Care Team Description 07/16/2017 Telephone Endocrinology at [facility] Manuela Holliday, [facility] [place] [address] ENDOCRINOLOGY DEPT [phone] [place], [place] [address] (Wo rk) Social History Tobacco [...] this patient which she was aware of. Manulea Holliday DO 10:01 PM 07/16/17 documented in this encounter Plan of Treatment Upcoming Encounters Date Type Specialty Care Team Description 05/28/2022 Appointment Cardiology Zulma Dolan MD [facility] [address] [place], [place] [address] (Wo rk) 05/28/2022 Laboratory Appointment Lab 05/28/2022 Office Visit Cardiology Zulma Dolan MD [place] [address] Liz Poole PA [facility] [place] [address] 06/10/2022 Office Visit Dermatology Laura Scherer MD [facility] [address] [place], [place] [address] (Wo rk) documented as of this encounter Visit Diagnoses Not on filedocumented in this encounter Care Teams Clerical Support Specialist Relationship Specialty Start Date End Date Lovely Vicente MD PCP - General 04/16/[address] [place] [address] documented as of this encounter
--- OUTSIDE RECORDS SUMMARY | 2022-04-10 09:01 | XMS_ITS | Encounter Summary ---
:1945 Author Organization [facility] [place] [place] [address] Care Team Providers Name Role Phone Lovely Vicente MD Primary Care Provider Encounter Details Date Type Department Care Team Description 08/02/2017 Telephone Pain Management at [place], [place] [address] Social History Tobacco Use Types Packs/Day [...] Management Center Preauthorization Request Patient: Don Fatima [id number] Fax received from [facility] requesting we obtain prior authorization for Lidocaine patches prescribed by Barbra Soares APRN. RX insurance plan: [employer] RX insurance telephone: [phone] Patient Diagnosis: right foot pain secondary to PVD and ischemia Previous medications attempted: Tylenol, Tramadol, Dilaudid The following action was taken after discussion with the service superintendent: _x_ pharmacy informed Authorized dosage or amount: 5% on patch on for 12 hours, then remove for 12 hours. Angeles Rodrigez, RN documented in this encounter Plan of Treatment Upcoming Encounters Date Type Specialty Care Team Description 05/28/2022 Appointment Cardiology Zulma Dolan MD [facility] [place], [place] [address] (Wo rk) 05/28/2022 Laboratory Appointment Lab 05/28/2022 Office Visit Cardiology Zulma Dolan MD [facility] [place] [address] Liz Poole PA [facility] [place] [address] 06/10/2022 Office Visit Dermatology Laura Scherer MD [facility] DR [address] [place], [place] [address] (Wo rk) documented as of this encounter Visit Diagnoses Not on filedocumented in this encounter Care Teams Sleep Medicine Physician Relationship Specialty Start Date End Date Lovely Vicente MD PCP - General 04/16/[address] [place] [address] documented as of this encounter
--- OUTSIDE RECORDS SUMMARY | 2022-04-10 09:01 | XMS_ITS | Encounter Summary ---
:1945 Author Organization [facility] [place] [address] Care Team Providers Name Role Phone Lovely Vicente MD Primary Care Provider Encounter Details Date Type Department Care Team Description 08/03/2017 Telephone Pain Management at [facility] [place], [place] [address] Social History Tobacco Use Types Packs/Day [...] Management Center Preauthorization Request Patient: Don Fatima [id number] Fax received from [facility] requesting we obtain prior authorization for Lidocaine Patches prescribed by Barbra Soares APRN. RX insurance plan: [facility] insurance telephone: [phone] Patient ?? Diagnosis: right foot pain secondary to PVD and ischemia ?? Previous medications attempted: Tylenol, Tramadol, Dilaudid Authorization/Reference number: [id number], PBP Code 801 _x_ denied, provider and patient informed _x_ appeal initiated by provider, patient informed [place] Rodrigez, RN documented in this encounter Plan of Treatment Upcoming Encounters Date Type Specialty Care Team Description 05/28/2022 Appointment Cardiology Zulma Dolan MD [facility] [place], [place] [address] (Wo rk) 05/28/2022 Laboratory Appointment Lab 05/28/2022 Office Visit Cardiology Zulma Dolan MD [facility] [place] [address] Liz Poole PA [facility] [place] [address] 06/10/2022 Office Visit Dermatology Laura Scehrer MD [facility] DR [address] [place], [place] [address] (Wo rk) documented as of this encounter Visit Diagnoses Not on filedocumented in this encounter Care Teams Leasing Associate Relationship Specialty Start Date End Date Lovely Vicente MD PCP - General 04/16/[address] [place] [address] documented as of this encounter
--- OUTSIDE RECORDS SUMMARY | 2022-04-10 09:01 | XMS_ITS | Encounter Summary ---
:1945 Author Organization [facility] [address] Care Team Providers Name Role Phone Lovely Vicente MD Primary Care Provider Reason for Visit Auth/Cert Specialty Diagnoses / Procedures Referred By Contact Refer red To Contact Diagnoses Critical lower limb ischemia CELLULITIS RT FOOT Procedures EMERGENCY Referral ID Status Reason Start Date Expiration Date Visits Requ ested Visits Authorized [id number] 1 1 Encounter Details Date Type Department Care Team Description 08/04/2017 Office Visit Cardiology at [facility] Danette Maxwell Incisional pain; [facility] A, IT INFRASTRUCTURE SPECIALIST Ischemic cardiomyopathy; [facility] ASCVD (arteriosclerotic card iovascular disease); [place], [place] Systolic heart failure, unspecified hear t failure chronicity [phone] CARDIOLOGY [phone] [place], [place] [address] Social History Tobacco Use Types [...] in this encounter Progress Notes Danette Maxwell, IT INFRASTRUCTURE SPECIALIST - 08/04/2017 3:00 PM EST ID and [...] 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 [address] [place], [place] [address] (Wo rk) documented as of [...] sensation documented in this encounter Care Teams Director Public Policy Relationship Specialty Start Date End Date Lovely Vicente MD PCP - General 04/16/[address] [place] [address] documented as of this encounter
--- OUTSIDE RECORDS SUMMARY | 2022-04-10 09:01 | XMS_ITS | Encounter Summary ---
:1945 Author Organization [facility] [place] [address] Care Team Providers Name Role Phone Lovely Vicente MD Primary Care Provider Encounter Details Date Type Department Care Team Description 07/29/2017 Transcribe Orders Laboratory Lovely Vicente MD [address] [address] [place] [address] [phone] (Wo rk) Social History Tobacco Use Types [...] Dolan MD [facility] er [address] [place] [address] (Wo rk) 05/28/2022 Laboratory Appointment Lab 05/28/2022 Office Visit Cardiology Zulma Dolan MD [facility] [place] [address] Liz Poole PA [facility] [place] [address] 06/10/2022 Office Visit Dermatology Laura Scherer MD [facility] ER DR [address] [place], [place] [address] (Wo rk) documented as of this encounter Visit Diagnoses Not on filedocumented in this encounter Care Teams Banking Management Consulting Manager Relationship Specialty Start Date End Date Lovely Vicente MD PCP - General 04/16/[address] [place] [address] documented as of this encounter
--- OUTSIDE RECORDS SUMMARY | 2022-04-10 09:03 | XMS_ITS | Encounter Summary ---
:1945 Author Organization [place] [address] Care Team Providers Name Role Phone Lovely Vicente MD Primary Care Provider Reason for Referral Consultation (Routine) - Closed Specialty Diagnoses / Referred By Contact Referred To Contact Procedures Cardiac Rehabilitation Diagnoses S/P CABG x 3 Yuan Webber, Cardiac Rehab, [address] [place] CARDIOTHORACIC [address] [place] [address] Referral ID Status Reason Start Date Expiration Date Visits V isits Requested Authorized [id number] Closed Consult, 07/14/2017 01/10/2018 36 36 Test & Treat Reason for Visit Auth/Cert Specialty Diagnoses / Procedures Referred By Contact Refer red To Contact Diagnoses STEMI (ST elevation myocardial infarction) NSTEMI STEMI Procedures CARDIAC CATHETERIZATION NAYE IPI Referral ID Status Reason Start Date Expiration Date Visits Requ ested Visits Authorized [id number] 1 1 Encounter Details Date Type Department Care Team Description 07/05/2017 - Hospital Encounter Cardiac Special Daphne Shahid MD [facility] [place] [address] Non-ST elevation myocardial infarction ( NSTEMI); 07/14/2017 Care Unit Yuan Preciado MD [facility] DR C[place]IOTHOR[place] [address] S/P CABG x 3 [place] [id number] Social History Tobacco Use Types Packs/Day Years [...] , @ 1:20p Patient to follow-up with Manufacturing Executive/heart failure team in one week. An appointment will be made for you. You may call [phone] Patient to follow-up with Cardiac Surgery, Dr. Yuan Webber, in ~ 4 weeks with CXR, EKG. Inpatient Provider Contact Information: [facility] Section of Cardiac Surgery [facility] [place] [address] FAX [phone] Discharge Diagnoses (Hospital Problems) Primary Diagnoses: CAD [...] by mouth daily. 90 tablet 3 07/05/2017 [id number] ??? ascorbic acid, vitamin C, (VITAMIN C) [...] hospital and ruled infor non-ST segment elevation [place]. This almost certainly represents the residual of [...] Hospital Course: Gregory Hoang was admitted to [facility] on 07/05/2017 via the Cardiology Service. During his hospital course, he was taken emergently to the optical laboratory technician for an ongoing STEMI. An [...] not take or discontinue any prescription or gcir-uvi-bmqcrmb medications without asking your doctor or pharmacist [...] Yuan Webber and/or the Cardiac Surgery Physician Iron Worker Foreman Team may be reached at . Weight: [...] Dr. Yuan Webber. You may use a [place] Track or treadmill but avoid any pulling [...] friends, go to a movie, go to hinduism, etc. Heavy activities: No hunting, skiing, jogging, snow shoveling, snowmobiling, lawn mowing, swimming, golf or tennis until after your return appointment with the surgeon. Do not ride motorcycles, [employer]'s tractors or horses. Avoid the use [...] should resume a low fat, low cholesterol, [place] Heart Association Diet/Diabetic diet. Driving: No driving [...] , @ 1:20p Patient to follow-up with Manufacturing Executive/heart failure team in one week. Appointment will be made for you. You may call [phone] Patient to follow-up with Cardiac Surgery, Dr. Yuan Webber, in ~ 4 weeks with CXR, EKG. Cardiac Rehabilitation: Gregory Hoang was seen today regarding participation in the outpatient Phase 2 Cardiac Rehabilitation at [facility]. The patient agrees to a referral to this program. The referral will be sent at discharge and the patient should be contacted by the Program within 1- 2 weeks from discharge. ?? Future Appointments and Orders Future Appointments Provider Department Dept Phone 09/07/2017 3:00 PM LAB, THREE L Lab 3L [facility] [phone] 09/07/2017 4:00 PM Luz Prescott MD Endocrinology at [place] [phone] Future Orders Complete By Expires EKG 12 Lead [EKG1 Custom] 08/14/2017 02/13/2018 Process Instructions: Scheduling Instructions: Questions: Which location will this be performed?: [place] Is a rhythm strip needed?: No If EKG Reason is Pre-op Evaluation, indicate diagnosis for surgery.: XR Chest PA & Lateral (Generic) [[id number] Custom] 08/14/2017 02/13/2018 Process Instructions: Scheduling Instructions: Questions: Where will study be performed?: [place] [facility] Portable exam?: Reason for exam and clinical history: CABG x 3 Other pertinent information: Stat read required?: Date of injury if applicable: Requested Time: Referral to Cardiac Rehab [ODK167 Custom] As directed Process Instructions: If no progress note charted, please enter Clinical details in comments. Scheduling Instructions: Questions: My question or request is: s/p CABG. Cardiac rehab at [facility] Referral to Home Health - at DISCHARGE [[id number] CPT(R)] As directed Process Instructions: Scheduling Instructions: Comments: DOCUMENTATION FOR VNA SERVICES (INCLUDING THOSE PATIENTS WITH MEDICARE COVERAGE REQUIRING HOME VNA SERVICES AND/OR HOSPICE SERVICES) PATIENT'S LOCATION: Gregory Hoang [address] [place] [address] [place] [address] (home) Telephone Information: Counter Hand's Name: self In discussion with the attending physician, it is certified that this patient is under their care and that they, or a Nurse Practitioner, or Physician Iron Worker Foreman who is working directly with them, had [...] [facility] ([facility] [place] [facility] in [place] PHONE: [phone] FAX: [phone] RN orders: Cardiopulmonary assessment, incisional assessment, assess vital signs, assessment of rehab progress, medication management and effectiveness, home safety evaluation. Please draw INR if indicated and send result to:Dr Vicente [phone] PT ORDERS: Continue rehab for endurance, gait stability and strength with mobility and transfers. Home safety evaluation. Home exercise program if appropriate. Start of Care Date:24-48 hours after discharge SPECIAL INSTRUCTIONS: For any follow up questions, needs, or issues please call the Cardiac Surgery Office at [phone] FOR MEDICARE ONLY: (please delete this section [...] [facility] [place] [address] FAX [phone] Date: 07/14/2017 CC: MD Ivania Cr Betsy, [place] [address] [place] [phone] documented in this encounter Discharge Instructions Discharge [...] not take or discontinue any prescription or tvng-hwf-hwudjeg medications without asking your doctor or pharmacist [...] juice or regular (not diet) soda 6 [employer] small box of raisins 4 glucose tablets [...] Yuan Webber and/or the Cardiac Surgery Physician Iron Worker Foreman Team may be reached at . ?? [...] Dr. Yuan Webber. You may use a [place] Track or treadmill but avoid any pulling [...] friends, go to a movie, go to hinduism, etc. ?? Heavy activities: No hunting, skiing, jogging, snow shoveling, snowmobiling, lawn mowing, swimming, golf or tennis until after your return appointment with the surgeon. Do not ride motorcycles, [employer] tractors or horses. Avoid the use of [...] should resume a low fat, low cholesterol, [place] Heart Association Diet/Diabetic diet. ?? Driving: No [...] @ 1:20p ?? Patient to follow-up with Manufacturing Executive/heart failure team in one week. An appointment has been made for you, you can call [phone] ?? Patient to follow-up with Cardiac Surgery, Dr. Yuan Webber, in ~ 4 weeks with CXR, EKG. ? Cardiac Rehabilitation: Gregory Hoang??was seen today regarding participation in the outpatient Phase 2 Cardiac Rehabilitation at [facility]. ?? The patient agrees to a referral to this program.? The referral will be sent at discharge and the patient should be contacted by the Program within 1- 2 weeks from discharge. ? Future Appointments and Orders Future Appointments Provider Department Dept Phone ?? 09/07/2017 3:00 PM LAB, THREE L Lab 3L [facility] [phone] ?? 09/07/2017 4:00 PM Luz Prescott MD Endocrinology at [place] [phone] Future Orders Complete By Expires ?? EKG 12 Lead [EKG1 Custom] 08/14/2017 02/13/2018 ?? Process Instructions: ? Scheduling Instructions: ? Questions: ? Which location will this be performed?: [place] ?? Is a rhythm strip needed?: No ?? If EKG Reason is Pre-op Evaluation, indicate diagnosis for surgery.: ?? XR Chest PA & Lateral (Generic) [[id number] Custom] 08/14/2017 02/13/2018 ?? Process Instructions: ? Scheduling Instructions: ? Questions: ? Where will study be performed?: [place] [facility] ?? Portable exam?: ?? Reason for exam and clinical history: CABG x 3 ?? Other pertinent information: ?? Stat read required?: ?? Date of injury if applicable: ?? Requested Time: ?? Referral to Cardiac Rehab [FFG658 Custom] As directed ? Process Instructions: ?? If no progress note charted, please enter Clinical details in comments. ?? Scheduling Instructions: ? Questions: ? My question or request is: s/p CABG. Cardiac rehab at [facility] ? Arrangements for VNA/home care: [...] RN - 07/14/2017 2:34 PM EST The patient/contact center representative has been provided a list of Home Health Agencies/DME vendors which serve their preferred geographic area. A letter describing our affiliations was reviewed with them and theywere educated about their right to choose where referrals are placed. Patient requests referral to [facility] PHONE: [phone] FAX: [phone] Expected date of discharge: 07/14 Referral routed to the Fusing Machine Tender for matching with agency/vendor and to provide [...] [phone] Results for GREGORY HONAG ( ) as of 07/14/2017 11:09 Ref. [...] [facility] End[facility] Diabetes Management Pager [phone] minutes of this 35 minute visit was spent with the patient in counseling on diabetes and treatment plan, reviewing all glucose and insulin data as well as relevant laboratory results with the patient, and coordination of care on the inpatient unit including nursing and primary team. Zulma Andres, RN - 07/14/2017 10:30 AM EST The patient/contact center representative has been provided a list of Home Health Agencies/DME vendors which serve their preferred geographic area. A letter describing our affiliations was reviewed with them and theywere educated about their right to choose where referrals are placed. Patient requests referral to : Yasmani Munguia ([facility] [place] [facility] in [place] PHONE: [phone] FAX: [phone]. Expected date of discharge: 07/14/17 Referral routed to the Fusing Machine Tender for matching with agency/vendor and to provide [...] #6 s/p CABG X3. FSBG 80 at [place], reports no symptoms but did drink some [...] [facility] Diabetes Management Pager [phone] minutes of this 25 minute visit [...] of infiltration/extravasation Discussed plan of care with SEDIMENTATIONIST and RN. Elevate exrtemity and apply intermittent Warm compresses. Name of MD contacted Dr. Shaw Brown 07/13/2017 @ 0657 Name of RN contacted Ale Rangel RN Name of Pharmacist if consulted NA Name of Plastics MD ( if consulted) NA (Mandatory photo for infiltrations/ extravasations scoring a stage 2 or greater, but recommended forstage 1)( include measuring tape and identifier in the photo) FIELD MECHANIC CARING FOR THIS PATIENT WILL CONTINUE TO [...] measuring tape and identifier in the photo) FIELD MECHANIC CARING FOR THIS PATIENT WILL CONTINUE TO [...] regard to both infiltrates addressed by this functional tester typewriters.All of Mr. Hoang's responses were entirely appropriate. Images of infiltrates attached here. Martha Sharp APRN - 07/13/2017 8:01 AM EST Cardiac Surgery Progress Note: ID: [id number] 72 year old male POD#6 s/p CABGx3 [...] discharge. ?? I have met with the patient/contact center representative to discuss discharge planning needs. I have provided the [facility], Office of Care Management letter from the Net Maker pertaining to rehab referrals. I have also provided a letter describing our affiliations within the [facility] and educated them about their right to choose where referrals are placed. ?? I reviewed the different levels of rehab including SNF, swing, acute and LTAC with the patient/contact center representative. ?? The patient/contact center representative has been provided a list of facilities within their preferred geographic area. ?? I have requested that the patient/contact center representative provide at least three choices for referral. ?? The patient/contact center representative have requested referrals to: ?? 1. . ?? 2. [facility] ?? 3. More to be entered ?? Expected date of discharge: 07/14 Note routed to Fusing Machine Tender who will communicate referrals to facilities and [...] hours. If BG remains greater than 240, [id number] units (no more than three times) & call for new basal insulin orders. ??If less than 240 after two hours, give no insulin and resume prior schedule. Will continue to follow Katerin Patel. STACIE Azul [facility] Endocrinology Diabetes Management Pager [phone] minutes of this 35 minute visit was spent with the patient in counseling on diabetes and treatment plan, reviewing all glucose and insulin data as well as relevant laboratory results with the patient, and coordination of care on the inpatient unit including nursing and primary team. Makayla Stevenson APRN - 07/12/2017 9:52 AM EST Cardiac Surgery Progress Note: ID: [id number] 72 year old male POD#5 s/p CABGx3 [...] 07/11/2017 7:18 PM EST Patient arrived from [facility]. VSS. MSI dressing pulled off with [...] hours. If BG remains greater than 240, [id number] units (no more than three times) & [...] AM EST Cardiac Surgery Progress Note: ID: [id number] 72 year old male POD#4 s/p CABGx3 [...] hours. If BG remains greater than 240, [id number] units (no more than three times) & [...] AM EST Cardiac Surgery Progress Note: ID: [id number] 72 year old male POD#3 s/p CABGx3 [...] Gas) No results found for: PHART, PO2ART, [id number] Assessment/Plan: 72 year old male POD#3 s/p [...] Encounter Note Patient Name: Gregory Hoang : [id number] MR#: [id number] Admit Date: 07/05/2017 4:20 PM Hospital Day 4 days Narrative: Patient was sitting in chair, hugging heart pillow, opened his eyes, nodding to come into room Assessment: Patient was sleepy. Intervention and Outcome: Introduced educational institution president services and patient reached his hand out in appreciation. Follow-up: Change Coordinator remains available for support. Time in [...] 10:45 AM EST Report given to staff veterinarian to cover care Maddison Cee PA - 07/09/2017 9:00 AM EST Cardiac Surgery Progress Note: ID: [id number] 72 year old male POD#2 s/p CABGx3 [...] Attending Surgeon on rounds. Signed: STEPHANIE Iqbal [facility] Section of Cardiac Surgery Date: 07/09/2017 Magnolia Santiago [facility] - 07/09/2017 1:[address] [...] when IABP d/c'ed. Gretchen Carolina, PT Pager [phone] Maddison Cee PA - 07/08/2017 11:27 AM EST Cardiac Surgery Progress Note: ID: [id number] 72 year old male POD#1 s/p CABGx3 with pre-operative placed IABP for severe LV dysfunction. pmhx pertinent for HTN, CHF, CAD, nSTEMI, IDDM, MARIA VICTORAI, BPH, thyroid carcinoma s/p thyroidectomy melanoma EF- [...] Attending Surgeon on rounds. Signed: STEPHANIE Iqbal [facility] Section of Cardiac Surgery Date: [...] NICK SEGAL MD 07/08/2017 Jay Munoz [facility] - 07/08/2017 4:[address] [...] in place in R femoral. No hematoma. VICE PRESIDENT COMPLIANCE- Intact Psych- Anxious Skin- Dry, no peripheral [...] Ramírez MD, PGY-1 Cardiology S1 (pgr. [phone]) Daphne Shahid MD - 07/06/2017 10:18 PM [...] intact. IABP in place in R femoral. VICE PRESIDENT COMPLIANCE- Intact Psych- Anxious Skin- Dry, no peripheral [...] ??? insulin lispro 2-8 Units Subcutaneous Q4H LZU ??? aspirin 81 mg Oral Daily ??? [...] note for details. DAPHNE SHAHID MD Pager [phone] Jet Mckenna MD - 07/05/2017 6:48 PM EST Preliminary Cardiac Catheterization Procedure Note: Procedure(s) performed: Left heart cath, IABP insertion Access: Right [employer]-->8fr IABP A time-out was conducted prior to [...] gtt maintained. Pt transferred to optical laboratory technician. documented in this encounter H&P Notes Daphne Shahid MD - 07/05/2017 6:08 PM EST CARDIOLOGY HISTORY & PHYSICAL EXAM Date of Admission: 07/05/2017 ( Hospital Day 0 days ) Responsible Attending: Daphne Shahid MD PCP: Lovely Vicente MD PCP#: [phone] Patient Active Problem List Diagnosis Code ??? [...] valvular disease. Taken to the optical laboratory technician urgently for ongoing STEMI. [facility] Labs: INR 1.0 WBC 5.88 [...] - s/p lasix in the optical laboratory technician, redose to aim net neg [...] ISS - hold metformin - f/u [facility] #Home Meds - continue levothyroxine 175mcg - CPAP at night # Routine - DVT PPx: heparin drip - Diet: NPO - Code Status: FULL - Dispo: [facility] Cedric Bey MD Internal Medicine, PGY-2 Cardiology S1, Team Pager # [phone] CARDIOLOGY ATTENDING NOTE Patient: Gregory Hoang Date [...] amenable for PCI. DAPHNE SHAHID MD Pager [phone] documented in this encounter Miscellaneous Notes Consult Note - Daphne Shahid MD - 07/14/2017 11:46 AM EST Heart Failure Service Inpatient Consult Note Gregory Hoang Date of : 1945 Age: 72 y.o. Today's date: 07/14/17 PCP: Lovely Vicente MD PROCESS DEVELOPMENT ENGINEER: None [facility] of [facility] [...] following studies: EKG 07/14/17: NSR 75 bpm, COLLECTION ADVISOR anterior infarct, LAD CXR 07/11/17: FINDINGS: Sternotomy wires. The patient has been extubated, left chest tube removed, and Monroe-Suzi catheter removed since the 07/07/2017 study. Atelectasis [...] was discussed with Zehra. Jaden Kelley MD Raised Printer Pager [phone] CARDIOLOGY ATTENDING NOTE Patient: Gregory Hoang Date [...] heart failure clinic. DAPHNE SHAHID MD Pager [phone] Plan of Care - Alden Chavarria, WATER REGISTRAR - 07/14/2017 11:35 AM EST Problem: Patient [...] Discharge Disposition: home with assist Alden Chavarria, WATER REGISTRAR Pager: [phone] Inpatient Physical Therapy Problem: Acute Rehab Services [...] sit/sit to supine -- Bed Mobility Goal, [place] Level supervision required -- Bed Mobility Goal, [...] - 3 days -- Gait Training Goal, [place] Level supervision required -- Gait Training Goal, [...] days -- Transfer Training Goal, Activity Type maw-tj-adudn/zgguz-xe-aid;sjd-hs-hdnqm/ilfpl-vf-gxe;toilet -- Transfer Train Goal, [place] Level supervision required -- Transfer Training Goal, [...] present for 2 days per family. Supervisor Fusing Room noted of frustrations, house keeping sent to room. Patient offered showered twice, refused. at bedside, frustrated that shower not complete, informed that patient had refused several times. requesting to see PLATE DEVELOPER, paged sent to Martha, will come to bedside (middle of consult). not willing to wait, Martha notified that family had gone home. Encouraged to come for morning rounds a t 8am. Diabetes team at bedside - insulin adjustments made. Call cabello in reach. Continue to monitor. PLAN MOVING FORWARD: Ambulate, dressing changes BID, Please change drsg at 4am per Martha PLATE DEVELOPER request. INDIVIDUALIZED FALL PREVENTION INTERVENTIONS: Patient-specific fall [...] levels on the lower side, 60ml of [place] juice given after a FS of 80. [...] Anticipated Discharge Disposition: home with assist Pager: [phone] CLARISSA SEGAL, PT 07/12/2017 Physical Therapy Rehabilitation [...] to sit/sit to supine Bed Mobility Goal, [place] Level supervision required Bed Mobility Goal, Additional Goal adheres to psternal precautions for transfer Goal: Gait Training Goal Stand Alone Therapy Goal Outcome: Ongoing (Interventions Implemented as Appropriate) 07/12/17 1225 Gait Training Goal Gait Training Goal, Date Established 07/12/17 Gait Training Goal, Time to Achieve 2 - 3 days Gait Training Goal, [place] Level supervision required Gait Training Goal, Assist [...] 3 days Transfer Training Goal, Activity Type rzk-id-ygxxw/apheq-cv-wtf;hze-er-aduaj/epzmy-vg-zux;toilet Transfer Train Goal, [place] Level supervision required Transfer Training Goal, Additional Goal adheres to sternal precautions during transfer Consult Note - Octavia Vaughn RN - 07/12/2017 10:50 AM EST [facility] CARDIAC REHABILITATION Gregory Hoang was seen today regarding participation in the outpatient Phase 2 Cardiac Rehabilitation at [facility]. The patient agrees to a [...] IV site, amio to other piv and LAWYER CRIMINAL at bedside to help assess, IV removed. [...] Ongoing (Interventions Implemented as Appropriate) 07/11/17199907/11/17200907/12/17 [facility] Daily Care Interventions Self-Care Promotion [...] staff, he stood and marched in place. [place] weak, wanting to sit back down. Remained [...] Outcome: Ongoing (Interventions Implemented as Appropriate) 07/05/17 7719 Mutuality/Individual Preferences What Anxieties, Fears or Concerns [...] Health/Prescription Coverage: Primary Insurance: MEDICARE Secondary Insurance: [place] Prescription Coverage: yes Preferred Pharmacy[facility] Other: none Primary Care Provider: Lovely Vicente MD [phone] Patient/Caregiver Goals of Treatment:live and get my breath back Potential Needs for Transition of Care: Rehab/SNF: [facility]; [facility] Home Health: NA DME: TBD Dialysis: na Community Resources: available Transportation: yes Other: none Anticipated Barriers to Discharge/Special Considerations: none Plan: Likely SNF Rehab before home A member of the Care Management team will continue to monitor progress, follow for continuity of care and assist with transition of care planning. ERLIN Weiss Pager: [phone] Consult Note - Katerin Azul RN - [...] of senior living diabetes care. Diabetes History: Gregory Hoang has [...] potential to d/c gtt and start CF. residential diabetes care: Medications - Outpatient treatment regimen recommendations pending based on the hospital course. Monitoring - continue BG tid ac & hs Diet - low fat/low carb diet Exercise - weight-bearing exercise 30 min/day, as tolerated Thank you for allowing us to provide care for your patient W/E coverage, Dr. Jeane Tatum, pager [phone] Katerin Patel. STACIE Azul Endocrinology Diabetes Management Pager [phone] Plan of Care - Stephanie Godoy RN [...] Operative Note Patient Name: Gregory Hoang : [id number] MR#: [id number] Case Date: 07/07/2017 Surgeon: Surgeon(s) and Role: * Yuan Webber MD - Primary * Michael Drake PA - Physician Iron Worker Foreman * Linda Flores PA - Physician Iron Worker Foreman Preoperative diagnosis: 3VD Postoperative diagnosis: CAD, severe [...] Operative Note Patient Name: Gregory Hoang : [id number] MR#: [id number] Case Date: 07/07/2017 Surgeon: Surgeon(s) and Role: * Yuan Webber MD - Primary * Michael Drake PA - Physician Iron Worker Foreman * Linda Flores PA - Physician Iron Worker Foreman Preoperative diagnosis: 3VD Postoperative diagnosis: CAD, severe [...] major CV events such as , stroke, [place], repeat revascularization compared to PCI). In this [...] Full Code Katty Jovani, MS3 [facility] Cardiology S1 (Pager [phone]) Plan of Care - Emelia Ibarra RN [...] hospital and ruled infor non-ST segment elevation [place]. This almost certainly represents the residual of [...] with other involved physicians Yuan Webber MD [phone] Med Student Progress Note - Jovani Katty [...] major CV events such as , stroke, [place], repeat revascularization compared to PCI). In this [...] - s/p lasix in the optical laboratory technician, was net -1.5L - s/p [...] FULL - Dispo: [facility] Katty Hahn, M3 [facility] Cardiology S1 (Pager [phone]) Plan of Care - Stephanie Godoy RN [...] without difficulty. Lasix given in optical laboratory technician, 1.4 L out at this [...] Dolan MD [facility] [address] [place], [place] [address] (Wo lissa) 05/28/2022 Laboratory Appointment Lab 05/28/2022 Office Visit Cardiology Zulma Dolan MD [facility] [place] [address] Liz Poole PA [facility] [place] [address] 06/10/2022 Office Visit Dermatology Laura Scherer MD [facility] [address] [place], [place] [address] (Wo rk) Scheduled Orders Name [...] procedure are i n the results section. AGRICULTURAL COMMODITIES INSPECTOR SCAN 07/15/2017 12:00 Res ults for [...] this ([facility]) AM EST procedure are i [...] 2017 EXAMINATION: XR CHEST PA AND LATERAL ([place]) CLINICAL HISTORY: CABG x 3 TECHNIQUE: PA [...] Teague APRN IMG DX ORDERABLES SCAN DOC: AGRICULTURAL COMMODITIES INSPECTOR (07/15/2017 12:00 AM EST) Narrative 07/15/2017 [...] Signature POC Glucose 186 65 - 199 [facility]dL [facility] Comment: Supplemental ranges: <140 mg/dL before meals <180 mg/dL all other times of the day Specimen Anatomical Collection Method Collection Time Receive d Time (Source) Location / / Volume Laterality Blood specimen 07/14/2017 11:56 7 (specimen) AM EST 11:56 AM EST Yuan Webber MD POINT OF CARE TEST ORDERABLE S Performing Organization Address City/[facility]/ZIP [place] [address] POCT Glucose (07/14/2017 7:52 AM EST) athologist Signature POC Glucose 126 65 - 199 [facility]dL [facility] Comment: Supplemental ranges: <140 mg/dL before meals <180 mg/dL all other times of the day Specimen Anatomical Collection Method Collection Time Receive d Time (Source) Location / / Volume Laterality Blood specimen 07/14/2017 7:52 AM 017 7:52 (specimen) EST AM EST Yuan Webber MD POINT OF CARE TEST ORDERABLE S Performing Organization Address City/State/ZIP [place] [address] (ABNORMAL) Prothrombin Time (07/14/2017 [...] Wilson STACIE HEMATOLOGY ORDERABLES Performing Organization Address City/[facility]/ZIP [place] [address] Potassium (07/14/2017 4:46 AM EST) athologist Signature Potassium 4.3 3.5 - 5.0 [facility] mmol/L [facility] Comment: Please note: ??Patients with [...] Wilson STACIE CHEMISTRY ORDERABLES Performing Organization Address City/[facility]/ZIP [place] [address] POCT Glucose (07/14/2017 4:34 AM EST) athologist Signature POC Glucose 115 65 - 199 [facility] mg/dL [facility] Comment: Supplemental ranges: <140 mg/dL before meals <180 mg/dL all other times of the day Specimen Anatomical Collection Method Collection Time Receive d Time (Source) Location / / Volume Laterality Blood specimen 07/14/2017 4:34 AM 017 4:34 (specimen) EST AM EST Yuan Webber MD POINT OF CARE TEST ORDERABLE S Performing Organization Address City/State/ZIP Code Phon e Number [address] POCT Glucose (07/13/2017 11:33 PM EST) athologist Signature POC Glucose 132 65 - 199 [facility] mg/dL [facility] Comment: Supplemental ranges: <140 mg/dL before meals <180 mg/dL all other times of the day Specimen Anatomical Collection Method Collection Time Receive d Time (Source) Location / / Volume Laterality Blood specimen 07/13/2017 11:33 7 (specimen) PM EST 11:33 PM EST Yuan Webber MD POINT OF CARE TEST ORDERABLE S Performing Organization Address City/State/ZIP Code Phon e Number [address] POCT Glucose (07/13/2017 9:25 PM EST) athologist Signature POC Glucose 121 65 - 199 [facility] mg/dL [facility] Comment: Supplemental ranges: <140 mg/dL before meals <180 mg/dL all other times of the day Specimen Anatomical Collection Method Collection Time Receive d Time (Source) Location / / Volume Laterality Blood specimen 07/13/2017 9:25 PM 017 9:25 (specimen) EST PM EST Yuan Webber MD POINT OF CARE TEST ORDERABLE S Performing Organization Address City/State/ZIP Code Phon e Number [address] POCT Glucose (07/13/2017 4:55 PM EST) athologist Signature POC Glucose 79 65 - 199 [facility] mg/dL [facility] Comment: Supplemental ranges: <140 mg/dL before meals <180 mg/dL all other times of the day Specimen Anatomical Collection Method Collection Time Receive d Time (Source) Location / / Volume Laterality Blood specimen 07/13/2017 4:55 PM 017 4:55 (specimen) EST PM EST Yuan Webber MD POINT OF CARE TEST ORDERABLE S Performing Organization Address City/State/ZIP Code Phon e Number [address] POCT Glucose (07/13/2017 11:16 AM EST) athologist Signature POC Glucose 163 65 - 199 [facility] Comment: Supplemental ranges: <140 mg/dL before meals <180 mg/dL all other times of the day Specimen Anatomical Collection Method Collection Time Receive d Time (Source) Location / / Volume Laterality Blood specimen 07/13/2017 11:16 7 (specimen) AM EST 11:16 AM EST Yuan Webber MD POINT OF CARE TEST ORDERABLE S Performing Organization Address City/State/ZIP Code Phon e Number [address] POCT Glucose (07/13/2017 8:07 AM EST) athologist Signature POC Glucose 96 65 - 199 [facility] Comment: Supplemental ranges: <140 mg/dL before meals <180 mg/dL all other times of the day Specimen Anatomical Collection Method Collection Time Receive d Time (Source) Location / / Volume Laterality Blood specimen 07/13/2017 8:07 AM 017 8:07 (specimen) EST AM EST Yuan Webber MD POINT OF CARE TEST ORDERABLE S Performing Organization Address City/State/ZIP Code Phon e Number [address] (ABNORMAL) Prothrombin Time (07/13/2017 [...] Organization Address City/State/[place] [address] (ABNORMAL) Basic Metabolic Panel (non-fasting) (07/13/2017 4:26 AM EST) athologist Signature Glucose Lvl 95 65 - 199 [facility] mg/dL [facility] Comment: Diabetes: [...] [facility] Estimated GFR 60 >=60 [facility] Comment: The reported eGFR should be multiplied b y 1.2 for patients. The MDRD is not an appropriate measure o f renal function for patients with body mass extremes or in patients with acute kidney failure. [email or web address] [email or web address] Specimen Anatomical Collection Method Collection Time Receive d Time (Source) Location / / Volume Laterality Blood specimen 07/13/2017 4:26 AM 017 4:46 (specimen) EST AM EST Resulting Agency Comment Spec In Lab Makayla Wilson APRN CHEMISTRY ORDERABLES Performing Organization Address City/[facility]/ZIP Code Phon e Number [address] POCT Glucose (07/13/2017 3:52 AM EST) athologist Signature POC Glucose 93 65 - 199 [facility] mg/dL [facility] Comment: Supplemental ranges: <140 mg/dL before meals <180 mg/dL all other times of the day Specimen Anatomical Collection Method Collection Time Receive d Time (Source) Location / / Volume Laterality Blood specimen 07/13/2017 3:52 AM 017 3:52 (specimen) EST AM EST uYan Webber MD POINT OF CARE TEST ORDERABLE S Performing Organization Address City/[facility]/ZIP Code Phon e Number [address] POCT Glucose (07/13/2017 12:21 AM EST) athologist Signature POC Glucose 80 65 - 199 [place] [facility] mg/dL [facility] Comment: Supplemental ranges: <140 mg/dL before meals <180 mg/dL all other times of the day Specimen Anatomical Collection Method Collection Time Receive d Time (Source) Location / / Volume Laterality Blood specimen 07/13/2017 12:21 7 (specimen) AM EST 12:21 AM EST Yuan Wbeber MD POINT OF CARE TEST ORDERABLE S Performing Organization Address City/[facility]/ZIP Code Phon e Number [address] POCT Glucose (07/12/2017 8:22 PM EST) athologist Signature POC Glucose 119 65 - 199 [place] mg/dL [facility] Comment: Supplemental ranges: <140 mg/dL before meals <180 mg/dL all other times of the day Specimen Anatomical Collection Method Collection Time Receive d Time (Source) Location / / Volume Laterality Blood specimen 07/12/2017 8:22 PM 017 8:22 (specimen) EST PM EST Yuan Webber MD POINT OF CARE TEST ORDERABLE S Performing Organization Address City/State/ZIP Code Phon e Number [address] POCT Glucose (07/12/2017 4:02 PM EST) athologist Signature POC Glucose 114 65 - 199 [place] mg/dL [facility] Comment: Supplemental ranges: <140 mg/dL before meals <180 mg/dL all other times of the day Specimen Anatomical Collection Method Collection Time Receive d Time (Source) Location / / Volume Laterality Blood specimen 07/12/2017 4:02 PM 017 4:02 (specimen) EST PM EST Yuan Webber MD POINT OF CARE TEST ORDERABLE S Performing Organization Address City/State/ZIP Code Phon e Number [address] POCT Glucose (07/12/2017 11:28 AM EST) athologist Signature POC Glucose 164 65 - 199 [place] mg/dL [facility] Comment: Supplemental ranges: <140 mg/dL before meals <180 mg/dL all other times of the day Specimen Anatomical Collection Method Collection Time Receive d Time (Source) Location / / Volume Laterality Blood specimen 07/12/2017 11:28 7 (specimen) AM EST 11:28 AM EST Yuan Webber MD POINT OF CARE TEST ORDERABLE S Performing Organization Address City/State/ZIP Code Phon e Number [address] POCT Glucose (07/12/2017 7:34 AM EST) athologist Signature POC Glucose 109 65 - 199 [facility] mg/dL [facility] Comment: Supplemental ranges: <140 mg/dL before meals <180 mg/dL all other times of the day Specimen Anatomical Collection Method Collection Time Receive d Time (Source) Location / / Volume Laterality Blood specimen 07/12/2017 7:34 AM 017 7:34 (specimen) EST AM EST Yuan Webber MD POINT OF CARE TEST ORDERABLE S Performing Organization Address City/State/[place] [address] (ABNORMAL) Basic Metabolic Panel (non-fasting) (07/12/2017 4:11 AM EST) P athologist Signature Glucose Lvl 92 65 - 199 [facility] mg/dL [facility] Comment: Diabetes: [...] or in patients with acute kidney failure. [email or web address] Specimen Anatomical Collection Method Collection Time Receive d Time (Source) Location / / Volume Laterality Blood specimen 07/12/2017 4:11 AM 017 8:57 (specimen) EST AM EST Resulting Agency Comment Spec In Lab Makayla Wilson APRN CHEMISTRY ORDERABLES Performing Organization Address City/State/ZIP [place] [address] (ABNORMAL) Prothrombin Time (07/12/2017 [...] City/[facility]/ZIP [place] [address] Potassium (07/12/2017 4:11 AM EST) athologist Signature Potassium 3.8 3.5 - 5.0 [facility] mmol/L [facility] Comment: Please note: ??Patients with [...] Agency Comment Spec In Lab Makayla Katie AGILE TESTER CHEMISTRY ORDERABLES Performing Organization Address City/[facility]/ZIP [place] [address] POCT Glucose (07/12/2017 4:10 AM EST) athologist Signature POC Glucose 90 65 - 199 [facility] mg/dL [facility] Comment: Supplemental ranges: <140 mg/dL before meals <180 mg/dL all other times of the day Specimen Anatomical Collection Method Collection Time Receive d Time (Source) Location / / Volume Laterality Blood specimen 07/12/2017 4:10 AM 017 4:10 (specimen) EST AM EST Yuan Webber MD POINT OF CARE TEST ORDERABLE S Performing Organization Address City/State/ZIP Code Phon e Number [address] POCT Glucose (07/11/2017 11:57 PM EST) athologist Signature POC Glucose 98 65 - 199 [facility] Comment: Supplemental ranges: <140 mg/dL before meals <180 mg/dL all other times of the day Specimen Anatomical Collection Method Collection Time Receive d Time (Source) Location / / Volume Laterality Blood specimen 07/11/2017 11:57 7 (specimen) PM EST 11:57 PM EST Yuan Webber MD POINT OF CARE TEST ORDERABLE S Performing Organization Address City/State/ZIP [place] [address] POCT Glucose (07/11/2017 8:32 PM EST) athologist Signature POC Glucose 146 65 - 199 [facility] Comment: Supplemental ranges: <140 mg/dL before meals <180 mg/dL all other times of the day Specimen Anatomical Collection Method Collection Time Receive d Time (Source) Location / / Volume Laterality Blood specimen 07/11/2017 8:32 PM 017 8:32 (specimen) EST PM EST Yuan Webber MD POINT OF CARE TEST ORDERABLE S Performing Organization Address City/State/Z[place] [address] XR Chest PA & [...] e xtubated, left chest tube removed, and Monroe-Suzi catheter removed since the study. Atelectasis at [...] e xtubated, left chest tube removed, and Monroe-Suzi catheter removed since the study. Atelectasis at [...] 223 (H) 65 - 199 [facility] mg/dL [facility] Comment: Supplemental ranges: <140 mg/dL before meals <180 mg/dL all other times of the day Specimen Anatomical Collection Method Collection Time Receive d Time (Source) Location / / Volume Laterality Blood specimen 07/11/2017 4:05 PM 017 4:05 (specimen) EST PM EST Yuan Webber MD POINT OF CARE TEST ORDERABLE S Performing Organization Address City/State/ZIP Code Phon e Number [address] POCT Glucose (07/11/2017 11:55 AM EST) P athologist Signature POC Glucose 176 65 - 199 [place] mg/dL [facility] Comment: Supplemental ranges: <140 mg/dL before meals <180 mg/dL all other times of the day Specimen Anatomical Collection Method Collection Time Receive d Time (Source) Location / / Volume Laterality Blood specimen 07/11/2017 11:55 7 (specimen) AM EST 11:55 AM EST Yuan Webber MD POINT OF CARE TEST ORDERABLE S Performing Organization Address City/[facility]/ZIP [place] [address] POCT Glucose (07/11/2017 7:53 AM EST) athologist Signature POC Glucose 189 65 - 199 [place] mg/dL [facility] Comment: Supplemental ranges: <140 mg/dL before meals <180 mg/dL all other times of the day Specimen Anatomical Collection Method Collection Time Receive d Time (Source) Location / / Volume Laterality Blood specimen 07/11/2017 7:53 AM 017 7:53 (specimen) EST AM EST Yuan Webber MD POINT OF CARE TEST ORDERABLE S Performing Organization Address City/[facility]/ZIP [place] [address] POCT Glucose (07/11/2017 4:22 AM EST) P athologist Signature POC Glucose 151 65 - 199 [place] mg/dL [facility] Comment: Supplemental ranges: <140 mg/dL before meals <180 mg/dL all other times of the day Specimen Anatomical Collection Method Collection Time Receive d Time (Source) Location / / Volume Laterality Blood specimen 07/11/2017 4:22 AM 017 4:22 (specimen) EST AM EST Yuan Webber MD POINT OF CARE TEST ORDERABLE S Performing Organization Address City/[facility]/ZIP [place] [address] Potassium (07/11/2017 2:20 AM EST) athologist Signature Potassium 4.5 3.5 - 5.0 [facility] mmol/L [facility] Comment: Please note: ??Patients with [...] City/[facility]/ZIP [place] [address] POCT Glucose (07/11/2017 12:17 AM EST) athologist Signature POC Glucose 162 65 - 199 [facility] Comment: Supplemental ranges: <140 mg/dL before meals <180 mg/dL all other times of the day Specimen Anatomical Collection Method Collection Time Receive d Time (Source) Location / / Volume Laterality Blood specimen 07/11/2017 12:17 7 (specimen) AM EST 12:17 AM EST Yuan Webber MD POINT OF CARE TEST ORDERABLE S Performing Organization Address City/[facility]/ZIP Code Phon e Number [address] POCT Glucose (07/10/2017 8:47 PM EST) athologist Signature POC Glucose 191 65 - 199 [facility] Comment: Supplemental ranges: <140 mg/dL before meals <180 mg/dL all other times of the day Specimen Anatomical Collection Method Collection Time Receive d Time (Source) Location / / Volume Laterality Blood specimen 07/10/2017 8:47 PM 017 8:47 (specimen) EST PM EST Yuan Webber MD POINT OF CARE TEST ORDERABLE S Performing Organization Address City/State/ZIP Code Phon e Number [address] POCT Glucose (07/10/2017 4:06 PM EST) athologist Signature POC Glucose 131 65 - 199 [place] mg/dL [facility] Comment: Supplemental ranges: <140 mg/dL before meals <180 mg/dL all other times of the day Specimen Anatomical Collection Method Collection Time Receive d Time (Source) Location / / Volume Laterality Blood specimen 07/10/2017 4:06 PM 017 4:06 (specimen) EST PM EST Yuan Webber MD POINT OF CARE TEST ORDERABLE S Performing Organization Address City/State/ZIP [place] [address] POCT Glucose (07/10/2017 3:08 PM EST) athologist Signature POC Glucose 151 65 - 199 [place] mg/dL [facility] Comment: Supplemental ranges: <140 mg/dL before meals <180 mg/dL all other times of the day Specimen Anatomical Collection Method Collection Time Receive d Time (Source) Location / / Volume Laterality Blood specimen 07/10/2017 3:08 PM 017 3:08 (specimen) EST PM EST Yuan Webber MD POINT OF CARE TEST ORDERABLE S Performing Organization Address City/State/ZIP [place] [address] POCT Glucose (07/10/2017 2:25 PM EST) athologist Signature POC Glucose 146 65 - 199 [facility]dL [facility] Comment: Supplemental ranges: <140 mg/dL before meals <180 mg/dL all other times of the day Specimen Anatomical Collection Method Collection Time Receive d Time (Source) Location / / Volume Laterality Blood specimen 07/10/2017 2:25 PM 017 2:25 (specimen) EST PM EST Yuan Webber MD POINT OF CARE TEST ORDERABLE S Performing Organization Address City/State/ZIP Code Phon e Number [address] POCT Glucose (07/10/2017 1:23 PM EST) P athologist Signature POC Glucose 166 65 - 199 [place] mg/dL [facility] Comment: Supplemental ranges: <140 mg/dL before meals <180 mg/dL all other times of the day Specimen Anatomical Collection Method Collection Time Receive d Time (Source) Location / / Volume Laterality Blood specimen 07/10/2017 1:23 PM 017 1:23 (specimen) EST PM EST Yuan Webber MD POINT OF CARE TEST ORDERABLE S Performing Organization Address City/[facility]/ZIP Code Phon e Number [address] POCT Glucose (07/10/2017 11:52 AM EST) P athologist Signature POC Glucose 157 65 - 199 [place] mg/dL [facility] Comment: Supplemental ranges: <140 mg/dL before meals <180 mg/dL all other times of the day Specimen Anatomical Collection Method Collection Time Receive d Time (Source) Location / / Volume Laterality Blood specimen 07/10/2017 11:52 7 (specimen) AM EST 11:52 AM EST Yuan Webber MD POINT OF CARE TEST ORDERABLE S Performing Organization Address City/State/ZIP Code Phon e Number [address] POCT Glucose (07/10/2017 11:01 AM EST) P athologist Signature POC Glucose 158 65 - 199 [place] mg/dL [facility] Comment: Supplemental ranges: <140 mg/dL before meals <180 mg/dL all other times of the day Specimen Anatomical Collection Method Collection Time Receive d Time (Source) Location / / Volume Laterality Blood specimen 07/10/2017 11:01 7 (specimen) AM EST 11:01 AM EST Yuan Webber MD POINT OF CARE TEST ORDERABLE S Performing Organization Address City/State/ZIP Code Phon e Number [address] POCT Glucose (07/10/2017 9:54 AM EST) P athologist Signature POC Glucose 160 65 - 199 [place] mg/dL [facility] Comment: Supplemental ranges: <140 mg/dL before meals <180 mg/dL all other times of the day Specimen Anatomical Collection Method Collection Time Receive d Time (Source) Location / / Volume Laterality Blood specimen 07/10/2017 9:54 AM 017 9:54 (specimen) EST AM EST Yuan Webber MD POINT OF CARE TEST ORDERABLE S Performing Organization Address City/State/ZIP Code Phon e Number [address] POCT Glucose (07/10/2017 8:58 AM EST) athologist Signature POC Glucose 183 65 - 199 [place] mg/dL [facility] Comment: Supplemental ranges: <140 mg/dL before meals <180 mg/dL all other times of the day Specimen Anatomical Collection Method Collection Time Receive d Time (Source) Location / / Volume Laterality Blood specimen 07/10/2017 8:58 AM 017 8:58 (specimen) EST AM EST Yuan Webber MD POINT OF CARE TEST ORDERABLE S Performing Organization Address City/State/ZIP [place] [address] POCT Glucose (07/10/2017 8:01 AM EST) P athologist Signature POC Glucose 173 65 - 199 [facility] mg/dL [facility] Comment: Supplemental ranges: <140 mg/dL before meals <180 mg/dL all other times of the day Specimen Anatomical Collection Method Collection Time Receive d Time (Source) Location / / Volume Laterality Blood specimen 07/10/2017 8:01 AM 017 8:01 (specimen) EST AM EST Yuan Webber MD POINT OF CARE TEST ORDERABLE S Performing Organization Address City/State/ZIP Code Phon e Number [address] POCT Glucose (07/10/2017 7:05 AM EST) athologist Signature POC Glucose 166 65 - 199 [place] mg/dL [facility] Comment: Supplemental ranges: <140 mg/dL before meals <180 mg/dL all other times of the day Specimen Anatomical Collection Method Collection Time Receive d Time (Source) Location / / Volume Laterality Blood specimen 07/10/2017 7:05 AM 017 7:05 (specimen) EST AM EST Yuan Webber MD POINT OF CARE TEST ORDERABLE S Performing Organization Address City/State/ZIP Code Phon e Number [address] POCT Glucose (07/10/2017 6:00 AM EST) athologist Signature POC Glucose 162 65 - 199 [facility] Comment: Supplemental ranges: <140 mg/dL before meals <180 mg/dL all other times of the day Specimen Anatomical Collection Method Collection Time Receive d Time (Source) Location / / Volume Laterality Blood specimen 07/10/2017 6:00 AM 017 6:00 (specimen) EST AM EST Yuan Webber MD POINT OF CARE TEST ORDERABLE S Performing Organization Address City/State/ZIP Code Phon e Number [address] (ABNORMAL) Differential, Automated (07/10/2017 4:28 AM EST) [facility] gist Method Time Signature Neutrophils % 87.9 % [facility] Neutr Abs (ANC) 10.70 (H) 1.70 - [facility] 6.10 [facility] x10(3)/[facility] L LABORATORY Lymphocytes % 3.9 % [facility] LABORATORY Lymphocytes Abs 0.5 (L) 0.9 - 3.2 [facility] x10(3)/[facility] LABORATORY Monocytes % 7.0 % [facility] LABORATORY Monocyte Abs 0.8 0.3 - 0.9 [facility] x10(3)/[facility] LABORATORY Eosinophils % 0.3 % [facility] LABORATORY Eosinophils Abs 0.0 0.0 - 0.4 [facility] x10(3)/[facility] LABORATORY Basophils % 0.2 % [facility] LABORATORY Basophils Abs 0.0 0.0 - 0.1 [facility] x10(3)/[facility] LABORATORY Immature Gran % 0.70 % [...] Organization Address City/State/[place] [address] (ABNORMAL) Hemogram (07/10/2017 4:28 AM EST) Analysis Performed At Patho logist Time Signature WBC 12.2 (H) 4.0 - 9.5 [facility] x10(3)/[facility] LABORATORY RBC 3.31 (L) 4.58 - [facility] 5.54 [facility] x10(6)/[facility] LABORATORY Hemoglobin 9.8 (L) 13.7 - [facility] 16.5 gm/dL [facility] LABORATORY Hematocrit 30.0 (L) 40.5 - [facility] 48.5 % [facility] MCV 90.6 82.9 - [facility]1 fL [facility] LABORATORY MCH 29.6 27.5 - [facility] 32.1 pg [facility] MCHC 32.7 32.0 - [facility] 35.7 gm/dL [facility] LABORATORY Platelets 135 (L) 145 - 357 [facility] x10(3)/[facility] LABORATORY RDWSD 50.8 (H) 36.0 - [facility] 45.0 [facility] LABORATORY RDWCV 15.4 (H) 11.4 - [facility] 13.8 % [facility] LABORATORY MPV 10.0 7.6 - 12.9 [facility] LABORATORY nRBC % Auto 0.0 % [facility] LABORATORY nRBC Abs Auto 0.000 0.000 - [facility] 0.000 [facility] x10(3)/[facility] LABORATORY Specimen Anatomical Collection Method Collection Time Receive d Time (Source) Location / / Volume Laterality Blood specimen 07/10/2017 4:28 AM 017 4:36 (specimen) EST AM EST Resulting Agency Comment Spec In Lab Yuan Webber MD HEMATOLOGY ORDERABLES Performing Organization Address City/State/[place] [address] (ABNORMAL) Basic Metabolic Panel (non-fasting) (07/10/2017 4:28 AM EST) athologist Signature Glucose Lvl 178 65 - 199 [facility] mg/dL [facility] LABORATORY Comment: Diabetes: [...] [facility] LAB[facility]ORY Estimated GFR 60 >=60 [facility] LABORATORY Comment: The reported eGFR should be multiplied b y 1.2 for patients. The MDRD is not an appropriate measure o f renal function for patients with body mass extremes or in patients with acute kidney failure. [email or web address] [email or web address] Specimen Anatomical Collection Method Collection Time Receive d Time (Source) Location / / Volume Laterality Blood specimen 07/10/2017 4:28 AM 017 4:36 (specimen) EST AM EST Resulting Agency Comment Spec In Lab Yuan Webber MD CHEMISTRY ORDERABLES Performing Organization Address City/[facility]/ZIP Code Phon e Number [address] POCT Glucose (07/10/2017 4:26 AM EST) P athologist Signature POC Glucose 176 65 - 199 [facility]/dL [facility] LABORATORY Comment: Supplemental ranges: <140 mg/dL before meals <180 mg/dL all other times of the day Specimen Anatomical Collection Method Collection Time Receive d Time (Source) Location / / Volume Laterality Blood specimen 07/10/2017 4:26 AM 017 4:26 (specimen) EST AM EST Yuan Webber MD POINT OF CARE TEST ORDERABLE S Performing Organization Address City/State/ZIP [place] [address] (ABNORMAL) POCT Glucose (07/10/2017 3:06 AM EST) P athologist Signature POC Glucose 204 (H) 65 - 199 [facility] LABORATORY Comment: Supplemental ranges: <140 mg/dL before meals <180 mg/dL all other times of the day Specimen Anatomical Collection Method Collection Time Receive d Time (Source) Location / / Volume Laterality Blood specimen 07/10/2017 3:06 AM 12/16/2 017 3:06 (specimen) EST AM EST Yuan Webber MD POINT OF CARE TEST ORDERABLE S Performing Organization Address City/[facility]/ZIP Code Phon e Number [address] (ABNORMAL) POCT Glucose (07/10/2017 2:10 AM EST) P athologist Signature POC Glucose 203 (H) 65 - 199 [place] mg/dL [facility] LABORATORY Comment: Supplemental ranges: <140 mg/dL before meals <180 mg/dL all other times of the day Specimen Anatomical Collection Method Collection Time Receive d Time (Source) Location / / Volume Laterality Blood specimen 07/10/2017 2:10 AM 017 2:10 (specimen) EST AM EST Yuan Webber MD POINT OF CARE TEST ORDERABLE S Performing Organization Address City/[facility]/ZIP [place] [address] POCT Glucose (07/10/2017 1:09 AM EST) P athologist Signature POC Glucose 196 65 - 199 [place] mg/dL [facility] LABORATORY Comment: Supplemental ranges: <140 mg/dL before meals <180 mg/dL all other times of the day Specimen Anatomical Collection Method Collection Time Receive d Time (Source) Location / / Volume Laterality Blood specimen 07/10/2017 1:09 AM 017 1:09 (specimen) EST AM EST Yuan Webber MD POINT OF CARE TEST ORDERABLE S Performing Organization Address City/State/ZIP [place] [address] POCT Glucose (07/10/2017 12:10 AM EST) P athologist Signature POC Glucose 173 65 - 199 [place] mg/dL [facility] LABORATORY Comment: Supplemental ranges: <140 mg/dL before meals <180 mg/dL all other times of the day Specimen Anatomical Collection Method Collection Time Receive d Time (Source) Location / / Volume Laterality Blood specimen 07/10/2017 12:10 7 (specimen) AM EST 12:10 AM EST Yuan Webber MD POINT OF CARE TEST ORDERABLE S Performing Organization Address City/State/ZIP Code Phon e Number [address] POCT Glucose (07/09/2017 11:01 PM EST) P athologist Signature POC Glucose 140 65 - 199 [place] mg/dL [facility] LABORATORY Comment: Supplemental ranges: <140 mg/dL before meals <180 mg/dL all other times of the day Specimen Anatomical Collection Method Collection Time Receive d Time (Source) Location / / Volume Laterality Blood specimen 07/09/2017 11:01 7 (specimen) PM EST 11:01 PM EST Yuan Webbre MD POINT OF CARE TEST ORDERABLE S Performing Organization Address City/[facility]/ZIP Code Phon e Number [address] POCT Glucose (07/09/2017 10:05 PM EST) athologist Signature POC Glucose 144 65 - 199 [place] mg/dL [facility] LABORATORY Comment: Supplemental ranges: <140 mg/dL before meals <180 mg/dL all other times of the day Specimen Anatomical Collection Method Collection Time Receive d Time (Source) Location / / Volume Laterality Blood specimen 07/09/2017 10:05 7 (specimen) PM EST 10:05 PM EST Yuan Webber MD POINT OF CARE TEST ORDERABLE S Performing Organization Address City/State/ZIP Code Phon e Number [address] POCT Glucose (07/09/2017 9:31 PM EST) P athologist Signature POC Glucose 121 65 - 199 [place] mg/dL [facility] LABORATORY Comment: Supplemental ranges: <140 mg/dL before meals <180 mg/dL all other times of the day Specimen Anatomical Collection Method Collection Time Receive d Time (Source) Location / / Volume Laterality Blood specimen 07/09/2017 9:31 PM 017 9:31 (specimen) EST PM EST Yuan Webber MD POINT OF CARE TEST ORDERABLE S Performing Organization Address City/State/ZIP Code Phon e Number [address] POCT Glucose (07/09/2017 9:03 PM EST) athologist Signature POC Glucose 98 65 - 199 [place] mg/dL [facility] LABORATORY Comment: Supplemental ranges: <140 mg/dL before meals <180 mg/dL all other times of the day Specimen Anatomical Collection Method Collection Time Receive d Time (Source) Location / / Volume Laterality Blood specimen 07/09/2017 9:03 PM 017 9:03 (specimen) EST PM EST Yuan Webber MD POINT OF CARE TEST ORDERABLE S Performing Organization Address City/State/ZIP Code Phon e Number [address] POCT Glucose (07/09/2017 8:09 PM EST) athologist Signature POC Glucose 117 65 - 199 [place] mg/dL [facility] LABORATORY Comment: Supplemental ranges: <140 mg/dL before meals <180 mg/dL all other times of the day Specimen Anatomical Collection Method Collection Time Receive d Time (Source) Location / / Volume Laterality Blood specimen 07/09/2017 8:09 PM 017 8:09 (specimen) EST PM EST Yuan Webber MD POINT OF CARE TEST ORDERABLE S Performing Organization Address City/State/ZIP Code Phon e Number [address] POCT Glucose (07/09/2017 5:40 PM EST) athologist Signature POC Glucose 155 65 - 199 [facility] mg/dL [facility] LABORATORY Comment: Supplemental ranges: <140 mg/dL before meals <180 mg/dL all other times of the day Specimen Anatomical Collection Method Collection Time Receive d Time (Source) Location / / Volume Laterality Blood specimen 07/09/2017 5:40 PM 017 5:40 (specimen) EST PM EST Yuan Webber MD POINT OF CARE TEST ORDERABLE S Performing Organization Address City/[facility]/ZIP Code Phon e Number [address] POCT Glucose (07/09/2017 4:24 PM EST) athologist Signature POC Glucose 164 65 - 199 [place] mg/dL [facility] LABORATORY Comment: Supplemental ranges: <140 mg/dL before meals <180 mg/dL all other times of the day Specimen Anatomical Collection Method Collection Time Receive d Time (Source) Location / / Volume Laterality Blood specimen 07/09/2017 4:24 PM 017 4:24 (specimen) EST PM EST Yuan Webber MD POINT OF CARE TEST ORDERABLE S Performing Organization Address City/[facility]/ZIP Code Phon e Number [address] POCT Glucose (07/09/2017 3:19 PM EST) athologist Signature POC Glucose 166 65 - 199 [place] mg/dL [facility] LABORATORY Comment: Supplemental ranges: <140 mg/dL before meals <180 mg/dL all other times of the day Specimen Anatomical Collection Method Collection Time Receive d Time (Source) Location / / Volume Laterality Blood specimen 07/09/2017 3:19 PM 017 3:19 (specimen) EST PM EST Yuan Webber MD POINT OF CARE TEST ORDERABLE S Performing Organization Address City/[facility]/ZIP Code Phon e [place] [address] POCT Glucose (07/09/2017 2:26 PM EST) athologist Signature POC Glucose 179 65 - 199 [place] mg/dL [facility] LABORATORY Comment: Supplemental ranges: <140 mg/dL before meals <180 mg/dL all other times of the day Specimen Anatomical Collection Method Collection Time Receive d Time (Source) Location / / Volume Laterality Blood specimen 07/09/2017 2:26 PM 017 2:26 (specimen) EST PM EST Yuan Webber MD POINT OF CARE TEST ORDERABLE S Performing Organization Address City/State/ZIP [place] [address] (ABNORMAL) POCT Glucose (07/09/2017 1:29 PM EST) P athologist Signature POC Glucose 210 (H) 65 - 199 [place] mg/dL [facility] LABORATORY Comment: Supplemental ranges: <140 mg/dL before meals <180 mg/dL all other times of the day Specimen Anatomical Collection Method Collection Time Receive d Time (Source) Location / / Volume Laterality Blood specimen 07/09/2017 1:29 PM 017 1:29 (specimen) EST PM EST Yuan Webber MD POINT OF CARE TEST ORDERABLE S Performing Organization Address City/State/ZIP [place] [address] POCT Glucose (07/09/2017 12:20 PM EST) athologist Signature POC Glucose 172 65 - 199 [place] [facility] mg/dL [facility] LABORATORY Comment: Supplemental ranges: <140 mg/dL before meals <180 mg/dL all other times of the day Specimen Anatomical Collection Method Collection Time Receive d Time (Source) Location / / Volume Laterality Blood specimen 07/09/2017 12:20 7 (specimen) PM EST 12:20 PM EST Yuan Webber MD POINT OF CARE TEST ORDERABLE S Performing Organization Address City/State/[place] [address] POCT Glucose (07/09/2017 11:24 AM EST) athologist Signature POC Glucose 156 65 - 199 [place] mg/dL [facility] LABORATORY Comment: Supplemental ranges: <140 mg/dL before meals <180 mg/dL all other times of the day Specimen Anatomical Collection Method Collection Time Receive d Time (Source) Location / / Volume Laterality Blood specimen 07/09/2017 11:24 7 (specimen) AM EST 11:24 AM EST Yuan Webber MD POINT OF CARE TEST ORDERABLE S Performing Organization Address City/State/ZIP Code Phon [place] [address] POCT Glucose (07/09/2017 11:11 AM EST) athologist Signature POC Glucose 172 65 - 199 [place] mg/dL [facility] LABORATORY Comment: Supplemental ranges: <140 mg/dL before meals <180 mg/dL all other times of the day Specimen Anatomical Collection Method Collection Time Receive d Time (Source) Location / / Volume Laterality Blood specimen 07/09/2017 11:11 7 (specimen) AM EST 11:11 AM EST Yuan Webber MD POINT OF CARE TEST ORDERABLE S Performing Organization Address City/State/ZIP Code Phon e Number [address] POCT Glucose (07/09/2017 10:08 AM EST) athologist Signature POC Glucose 176 65 - 199 [facility] mg/dL [facility] LABORATORY Comment: Supplemental ranges: <140 mg/dL before meals <180 mg/dL all other times of the day Specimen Anatomical Collection Method Collection Time Receive d Time (Source) Location / / Volume Laterality Blood specimen 07/09/2017 10:08 7 (specimen) AM EST 10:08 AM EST Yuan Webber MD POINT OF CARE TEST ORDERABLE S Performing Organization Address City/State/ZIP [place] [address] POCT Glucose (07/09/2017 8:02 AM EST) athologist Signature POC Glucose 178 65 - 199 [place] mg/dL [facility] LABORATORY Comment: Supplemental ranges: <140 mg/dL before meals <180 mg/dL all other times of the day Specimen Anatomical Collection Method Collection Time Receive d Time (Source) Location / / Volume Laterality Blood specimen 07/09/2017 8:02 AM 017 8:02 (specimen) EST AM EST Yuan Webber MD POINT OF CARE TEST ORDERABLE S Performing Organization Address City/State/ZIP [place] [address] (ABNORMAL) BLOOD GAS 2 ARTERIAL (07/09/2017 5:37 AM EST) Analysis Performed At Patho logist Time Signature pH Art 7.36 7.35 - [facility] 7.45 [facility] LABORATORY pCO2 Art 38 35 - 45 [facility] mmHg [facility] LABORATORY pO2 Art 79 (L) 85 - 104 [facility] LABORATORY HCO3 Art 20.9 20.0 - [facility] 26.0 [facility] mmol/L [facility] LABORATORY BE Art -4.6 (L) -3.0 - 3.0 [facility] mmol/L [facility] LABORATORY Hgb Blood Gas 10.5 (L) 13.7 - [facility] 16.5 gm/dL [facility] LABORATORY O2HB Art 93.8 (L) 94.0 - [facility] 97.0 % [facility] LABORATORY COHB Art 0.3 % [facility] FIO2 Art 40 % [facility] LABORATORY PF Ratio Art [address] [facility] LABORATORY Specimen Anatomical Collection Method Collection Time Receive d Time (Source) Location / / Volume Laterality Blood specimen 07/09/2017 5:37 AM 017 5:37 (specimen) EST AM EST Yuan Webber MD CHEMISTRY ORDERABLES Performing Organization Address City/State/ZIP [place] [address] POCT Glucose (07/09/2017 3:27 AM EST) athologist Signature POC Glucose 192 65 - 199 [facility]dL [facility] LABORATORY Comment: Supplemental ranges: <140 mg/dL before meals <180 mg/dL all other times of the day Specimen Anatomical Collection Method Collection Time Receive d Time (Source) Location / / Volume Laterality Blood specimen 07/09/2017 3:27 AM 017 3:27 (specimen) EST AM EST Yuan Webber MD POINT OF CARE TEST ORDERABLE S Performing Organization Address City/State/ZIP [place] [address] (ABNORMAL) Basic Metabolic Panel (non-fasting) (07/09/2017 2:30 AM EST) athologist Signature Glucose Lvl 179 65 - 199 [facility] LABOR[facility]ORY Comment: Diabetes: [...] or in patients with acute kidney failure. [email or web address] [email or web address] Specimen Anatomical Collection Method Collection Time Receive d Time (Source) Location / / Volume Laterality Blood specimen Venous Draw / 07/09/2017 2:30 AM 2016 2:42 (specimen) Unknown EST AM EST Resulting Agency Comment Spec In Lab Yuan Webber MD CHEMISTRY ORDERABLES Performing Organization Address City/[facility] [place] [address] (ABNORMAL) Potassium (07/09/2017 2:30 AM EST) P athologist Signature Potassium 5.1 (H) 3.5 - 5.0 [facility] mmol/L [facility] LABORATORY Comment: Please note: ??Patients with [...] CHEMISTRY ORDERABLES Performing Organization Address City/[facility] [place] [address] (ABNORMAL) Hemogram (07/09/2017 2:30 AM EST) Analysis Performed At Patho logist Time Signature WBC 12.5 (H) 4.0 - 9.5 [place] [facility] x10(3)/[facility] LABORATORY RBC 3.38 (L) 4.58 - [place] [facility] 5.54 [facility] x10(6)/[facility] LABORATORY Hemoglobin 10.1 (L) 13.7 - [place] 16.5 gm/dL [facility] LABORATORY Hematocrit 30.3 (L) 40.5 - [place] [facility] 48.5 % [facility] LABORATORY MCV 89.6 82.9 - [facility] 93.1 [facility] LABORATORY MCH 29.9 27.5 - [place] 32.1 pg [facility] LABORATORY MCHC 33.3 32.0 - [place] [facility] 35.7 gm/dL [facility] LABORATORY Platelets 127 (L) 145 - 357 [facility] x10(3)/[facility] LABORATORY RDWSD 49.3 (H) 36.0 - [facility] 45.0 [facility] LABORATORY RDWCV 15.2 (H) 11.4 - [place] 13.8 % [facility] LABORATORY MPV 9.9 7.6 - 12.9 [facility] LABORATORY nRBC % Auto 0.0 % [facility] LABORATORY nRBC Abs Auto 0.000 0.000 - [place] 0.000 [facility] x10(3)/[facility] LABORATORY Specimen Anatomical Collection Method Collection Time Receive d Time (Source) Location / / Volume Laterality Blood specimen 07/09/2017 2:30 AM 017 2:41 (specimen) EST AM EST Resulting Agency Comment Spec In Lab Yuan Webber MD HEMATOLOGY ORDERABLES Performing Organization Address City/State/[place] [address] POCT Glucose (07/09/2017 2:10 AM EST) P athologist Signature POC Glucose 169 65 - 199 [facility] mg/dL [facility] LABORATORY Comment: Supplemental ranges: <140 mg/dL before meals <180 mg/dL all other times of the day Specimen Anatomical Collection Method Collection Time Receive d Time (Source) Location / / Volume Laterality Blood specimen 07/09/2017 2:10 AM 12/15/2 017 2:10 (specimen) EST AM EST Yuan Webber MD POINT OF CARE TEST ORDERABLE S Performing Organization Address City/State/ZIP [place] [address] POCT Glucose (07/09/2017 1:01 AM EST) P athologist Signature POC Glucose 173 65 - 199 [place] mg/dL [facility] LABORATORY Comment: Supplemental ranges: <140 mg/dL before meals <180 mg/dL all other times of the day Specimen Anatomical Collection Method Collection Time Receive d Time (Source) Location / / Volume Laterality Blood specimen 07/09/2017 1:01 AM 017 1:01 (specimen) EST AM EST Yuan Webber MD POINT OF CARE TEST ORDERABLE S Performing Organization Address City/[facility]/ZIP [place] [address] Blood culture (07/09/2017 12:40 AM EST) Patholo gist Method Time Signature Blood Culture No growth [place] at 5 days. [facility] LABORATORY Specimen Anatomical Collection Method Collection Time Receive d Time (Source) Location / / Volume Laterality Blood specimen STRUCTURE OF RIGHT 07/09/2017 12:40 3:58 (specimen) UPPER LIMB / AM EST AM EST Unknown Resulting Agency Comment Spec In Lab Yuan Webber MD MICROBIOLOGY - BLOOD ORDERAB LES Performing Organization Address City/[facility]/ZIP [place] [address] Blood culture (07/09/2017 12:30 AM EST) Patholo gist Method Time Signature Blood Culture No growth [place] DAVIS at 5 days. [facility] LABORATORY Specimen Anatomical Collection Method Collection Time Receive d Time (Source) Location / / Volume Laterality Blood specimen STRUCTURE OF LEFT 07/09/2017 12:30 06/25 3:59 (specimen) UPPER LIMB / AM EST AM EST Unknown Resulting Agency Comment Spec In Lab Yuan Webber MD MICROBIOLOGY - BLOOD ORDERAB LES Performing Organization Address City/[facility]/ZIP [place] [address] (ABNORMAL) Urinalysis Microscopic Exam (07/09/2017 12:05 AM EST) Analysis Performed At Patho logist Time Signature RBC UA 32 (H) 0 - 3 /HPF [facility] LABORATORY WBC UA 5 (H) 0 - 3 /HPF [facility] LABORATORY Squam Epith UA <1 <=4 /HPF [facility] LABORATORY Hyaline Cast 17 (H) 0 - 2 /LPF [facility] LABORATORY Gran Cast UA 1 (H) <=0 /LPF [facility] LABORATORY Uric Ac Bianca Rare (A) None /HPF [facility] LABORATORY Specimen (Source) Anatomical Collection Method Collection Time Re ceived Time Location / / Volume Laterality Urine specimen 07/09/2017 12:05 7 obtained via AM EST 12:39 AM EST indwelling urinary catheter (specimen) Resulting Agency Comment Spec In Lab Yuan Webber MD URINE ORDERABLES Performing Organization Address City/State/ZIP [place] [address] (ABNORMAL) Urinalysis with reflex Culture (07/09/2017 12:05 AM EST) Patholo gist Method Time Signature Glucose UA Negative Negative [facility] mg/dL [facility] LABORATORY Protein UA 30 (A) Negative [facility] mg/dL [facility] Bilirubin UA Negative Negative [facility] mg/dL [facility] LAB[facility] Comment: Clinical correlation required for [facility] Nitrite UA Negative Negative [facility] LABORATORY Leukocytes UA Negative Negative [facility] LABORATORY Appearance UA Hazy (A) Clear [place] [facility] LABORATORY Spec Dexter UA 1.025 1.002 - 1.030 [facility] LABORATORY Color UA Yellow Yellow [facility] LABORATORY Culture Reflexed No [facility] LABORATORY Specimen (Source) Anatomical Collection Method Collection Time Re ceived Time Location / / Volume Laterality Urine specimen 07/09/2017 12:05 7 obtained via AM EST 12:39 AM EST indwelling urinary catheter (specimen) Resulting Agency Comment Spec In Lab Yuan Webber MD URINE ORDERABLES Performing Organization Address City/State/ZIP Code Phon e Number [address] POCT Glucose (07/08/2017 11:01 PM EST) athologist Signature POC Glucose 191 65 - 199 [facility] Comment: Supplemental ranges: <140 mg/dL before meals <180 mg/dL all other times of the day Specimen Anatomical Collection Method Collection Time Receive d Time (Source) Location / / Volume Laterality Blood specimen 07/08/2017 11:01 7 (specimen) PM EST 11:01 PM EST Yuan Webber MD POINT OF CARE TEST ORDERABLE S Performing Organization Address City/[facility]/ZIP Code Phon e Number [address] POCT Glucose (07/08/2017 10:04 PM EST) athologist Signature POC Glucose 198 65 - 199 [facility] mg/dL [facility] Comment: Supplemental ranges: <140 mg/dL before meals <180 mg/dL all other times of the day Specimen Anatomical Collection Method Collection Time Receive d Time (Source) Location / / Volume Laterality Blood specimen 07/08/2017 10:04 7 (specimen) PM EST 10:04 PM EST Yuan Webber MD POINT OF CARE TEST ORDERABLE S Performing Organization Address City/State/ZIP [place] [address] Prepare Albumin 5% in 250 mL (07/08/2017 8:49 PM EST) athologist Signature Dispensed? Yes [facility] LABORATORY Specimen Anatomical Collection Method Collection Time Receive d Time (Source) Location / / Volume Laterality Blood specimen No Charge / 07/08/2017 8:49 PM 017 8:51 (specimen) Unknown EST PM EST Resulting Agency Comment Spec In Lab [facility] ORDERABLES Performing Organization Address City/State/ZIP Code Phon e Number [address] POCT Glucose (07/08/2017 8:28 PM EST) athologist Signature POC Glucose 195 65 - 199 [facility] mg/dL [facility] Comment: Supplemental ranges: <140 mg/dL before meals <180 mg/dL all other times of the day Specimen Anatomical Collection Method Collection Time Receive d Time (Source) Location / / Volume Laterality Blood specimen 07/08/2017 8:28 PM 017 8:28 (specimen) EST PM EST Yuan Webber MD POINT OF CARE TEST ORDERABLE S Performing Organization Address City/State/ZIP Code Phon e Number [address] (ABNORMAL) POCT Glucose (07/08/2017 7:13 PM EST) athologist Signature POC Glucose 220 (H) 65 - 199 [facility] mg/dL [facility] Comment: Supplemental ranges: <140 mg/dL before meals <180 mg/dL all other times of the day Specimen Anatomical Collection Method Collection Time Receive d Time (Source) Location / / Volume Laterality Blood specimen 07/08/2017 7:13 PM 017 7:13 (specimen) EST PM EST Yuan Webber MD POINT OF CARE TEST ORDERABLE S Performing Organization Address City/State/ZIP Code Phon e Number [address] POCT Glucose (07/08/2017 5:04 PM EST) P athologist Signature POC Glucose 147 65 - 199 [facility] mg/dL [facility] LABORATORY Comment: Supplemental ranges: <140 mg/dL before meals <180 mg/dL all other times of the day Specimen Anatomical Collection Method Collection Time Receive d Time (Source) Location / / Volume Laterality Blood specimen 07/08/2017 5:04 PM 017 5:04 (specimen) EST PM EST Yuan Webber MD POINT OF CARE TEST ORDERABLE S Performing Organization Address City/State/[place] [address] (ABNORMAL) BLOOD GAS 2 ARTERIAL (07/08/2017 4:13 PM EST) Analysis Performed At Patho logist Time Signature pH Art 7.38 7.35 - [facility] 7.45 [facility]OR[facility] pCO2 Art 36 35 - 45 [facility] mmHg [facility] LABORATORY pO2 Art 91 85 - 104 [facility] LABORATORY HCO3 Art 20.9 20.0 - [facility] 26.0 [facility] mmol/L [facility] LABORATORY BE Art -4.2 (L) -3.0 - 3.0 [facility] mmol/L [facility] LABORATORY Hgb Blood Gas 11.7 (L) 13.7 - [facility] 16.5 gm/dL [facility]OR[facility] O2HB Art 95.1 94.0 - [facility] 97.0 % [facility] LABORAT[facility] COHB Art 0.6 % [facility] FIO2 Art 40 % [facility] LABORATORY PF Ratio Art [address] [facility] LABORATORY Specimen Anatomical Collection Method Collection Time Receive d Time (Source) Location / / Volume Laterality Blood specimen 07/08/2017 4:13 PM 017 4:13 (specimen) EST PM EST Yuan Webber MD CHEMISTRY ORDERABLES Performing Organization Address City/[facility]/ZIP [facility] Phon e Number [address] POCT Glucose (07/08/2017 4:01 PM EST) athologist Signature POC Glucose 148 65 - 199 [facility] mg/dL [facility] Comment: Supplemental ranges: <140 mg/dL before meals <180 mg/dL all other times of the day Specimen Anatomical Collection Method Collection Time Receive d Time (Source) Location / / Volume Laterality Blood specimen 07/08/2017 4:01 PM 017 4:01 (specimen) EST PM EST Yuan Webber MD POINT OF CARE TEST ORDERABLE S Performing Organization Address City/[facility]/ZIP [place] [address] POCT Glucose (07/08/2017 3:21 PM EST) P athologist Signature POC Glucose 118 65 - 199 [facility] mg/dL [facility] Comment: Supplemental ranges: <140 mg/dL before meals <180 mg/dL all other times of the day Specimen Anatomical Collection Method Collection Time Receive d Time (Source) Location / / Volume Laterality Blood specimen 07/08/2017 3:21 PM 017 3:21 (specimen) EST PM EST Yuan Webber MD POINT OF CARE TEST ORDERABLE S Performing Organization Address City/State/ZIP Code Phon e Number [address] POCT Glucose (07/08/2017 2:01 PM EST) P athologist Signature POC Glucose 129 65 - 199 [place] mg/dL [facility]OR[facility] Comment: Supplemental ranges: <140 mg/dL before meals <180 mg/dL all other times of the day Specimen Anatomical Collection Method Collection Time Receive d Time (Source) Location / / Volume Laterality Blood specimen 07/08/2017 2:01 PM 017 2:01 (specimen) EST PM EST Yuan Webber MD POINT OF CARE TEST ORDERABLE S Performing Organization Address City/[facility]/ZIP Code Phon e Number [address] POCT Glucose (07/08/2017 11:53 AM EST) athologist Signature POC Glucose 156 65 - 199 [place] mg/dL [facility] Comment: Supplemental ranges: <140 mg/dL before meals <180 mg/dL all other times of the day Specimen Anatomical Collection Method Collection Time Receive d Time (Source) Location / / Volume Laterality Blood specimen 07/08/2017 11:53 7 (specimen) AM EST 11:53 AM EST Yuan Webber MD POINT OF CARE TEST ORDERABLE S Performing Organization Address City/State/ZIP Code Phon e Number [address] POCT Glucose (07/08/2017 11:04 AM EST) athologist Signature POC Glucose 181 65 - 199 [place] mg/dL [facility] Comment: Supplemental ranges: <140 mg/dL before meals <180 mg/dL all other times of the day Specimen Anatomical Collection Method Collection Time Receive d Time (Source) Location / / Volume Laterality Blood specimen 07/08/2017 11:04 7 (specimen) AM EST 11:04 AM EST Yuan Webber MD POINT OF CARE TEST ORDERABLE S Performing Organization Address City/State/ZIP [place] [address] (ABNORMAL) POCT Glucose (07/08/2017 9:24 AM EST) athologist Signature POC Glucose 203 (H) 65 - 199 [facility] mg/dL [facility]OR[facility] Comment: Supplemental ranges: <140 mg/dL before meals <180 mg/dL all other times of the day Specimen Anatomical Collection Method Collection Time Receive d Time (Source) Location / / Volume Laterality Blood specimen 07/08/2017 9:24 AM 017 9:24 (specimen) EST AM EST Yuan Webber MD POINT OF CARE TEST ORDERABLE S Performing Organization Address City/[facility]/ZIP [place] [address] APTT (07/08/2017 8:40 AM [...] City/[facility]/ZIP [place] [address] (ABNORMAL) Prothrombin Time (07/08/2017 [...] Organization Address City/State/ZIP [place] [address] (ABNORMAL) POCT Glucose (07/08/2017 7:38 AM EST) P athologist Signature POC Glucose 232 (H) 65 - 199 [facility] mg/dL [facility] Comment: Supplemental ranges: <140 mg/dL before meals <180 mg/dL all other times of the day Specimen Anatomical Collection Method Collection Time Receive d Time (Source) Location / / Volume Laterality Blood specimen 07/08/2017 7:38 AM 017 7:38 (specimen) EST AM EST Yuan Webber MD POINT OF CARE TEST ORDERABLE S Performing Organization Address City/[facility]/ZIP [place] [address] (ABNORMAL) POCT Glucose (07/08/2017 7:07 AM EST) athologist Signature POC Glucose 234 (H) 65 - 199 [facility] mg/dL [facility] Comment: Supplemental ranges: <140 mg/dL before meals <180 mg/dL all other times of the day Specimen Anatomical Collection Method Collection Time Receive d Time (Source) Location / / Volume Laterality Blood specimen 07/08/2017 7:07 AM 017 7:07 (specimen) EST AM EST Yuan Webber MD POINT OF CARE TEST ORDERABLE S Performing Organization Address City/[facility]/ZIP [place] [address] (ABNORMAL) POCT Glucose (07/08/2017 6:04 AM EST) athologist Signature POC Glucose 225 (H) 65 - 199 [facility] mg/dL [facility] Comment: Supplemental ranges: <140 mg/dL before meals <180 mg/dL all other times of the day Specimen Anatomical Collection Method Collection Time Receive d Time (Source) Location / / Volume Laterality Blood specimen 07/08/2017 6:04 AM 017 6:04 (specimen) EST AM EST Yuan Webber MD POINT OF CARE TEST ORDERABLE S Performing Organization Address City/State/ZIP [place] [address] (ABNORMAL) POCT Glucose (07/08/2017 5:31 AM EST) athologist Signature POC Glucose 216 (H) 65 - 199 [facility] mg/dL [facility] Comment: Supplemental ranges: <140 mg/dL before meals <180 mg/dL all other times of the day Specimen Anatomical Collection Method Collection Time Receive d Time (Source) Location / / Volume Laterality Blood specimen 07/08/2017 5:31 AM 017 5:31 (specimen) EST AM EST Yuan Webber MD POINT OF CARE TEST ORDERABLE S Performing Organization Address City/State/ZIP [place] [address] (ABNORMAL) POCT Glucose (07/08/2017 4:52 AM EST) athologist Signature POC Glucose 257 (H) 65 - 199 [facility] mg/dL [facility] Comment: Supplemental ranges: <140 mg/dL before meals <180 mg/dL all other times of the day Specimen Anatomical Collection Method Collection Time Receive d Time (Source) Location / / Volume Laterality Blood specimen 07/08/2017 4:52 AM 017 4:52 (specimen) EST AM EST Daphne Shahid MD POINT OF CARE TEST ORDERABLE S Performing Organization Address City/State/ZIP [place] [address] (ABNORMAL) BLOOD GAS 2 ARTERIAL (07/08/2017 4:04 AM EST) Analysis Performed At Patho logist Time Signature pH Art 7.30 (L) 7.35 - [facility] 7.45 [facility] pCO2 Art 41 35 - 45 [facility] mmHg [facility] LABORATORY pO2 Art 83 (L) 85 - 104 [facility] LABORATORY HCO3 Art 19.6 (L) 20.0 - [facility] 26.0 [facility] mmol/L [facility] LABORATORY BE Art -6.8 (L) -3.0 - 3.0 [facility] mmol/L [facility]ORATORY Hgb Blood Gas 12.2 (L) 13.7 - [facility] 16.5 gm/dL [facility] O2HB Art 93.5 (L) 94.0 - [facility] 97.0 % [facility]ORAT[facility] COHB Art 0.4 % [facility] [...] [facility] Comment: Noted by musical instrument maker or repairer. FIO2 Art 40 % [facility] LABORATORY PF Ratio Art [address] [facility] LABORATORY Specimen Anatomical Collection Method Collection Time Receive d Time (Source) Location / / Volume Laterality Blood specimen 07/08/2017 4:04 AM 017 4:04 (specimen) EST AM EST Daphne Shahid MD CHEMISTRY ORDERABLES Performing Organization Address City/State/ZIP Code Phon e Number [address] Scan, Peripheral Blood (07/08/2017 [...] City/[facility]/ZIP Code Phon e Number [address] (ABNORMAL) Differential, Automated (07/08/2017 4:00 AM EST) Patholo gist Method Time Signature Neutrophils % 85.4 % [facility] LABORATORY Neutr Abs (ANC) 16.07 (H) 1.70 - [facility] 6.10 [facility] x10(3)/[facility] L LABORATORY Lymphocytes % 3.5 % [facility] LABORATORY Lymphocytes Abs 0.6 (L) 0.9 - 3.2 [facility] x10(3)/[facility] LABORATORY Monocytes % 10.4 % [facility] LABORATORY Monocyte Abs 2.0 (H) 0.3 - 0.9 [facility] x10(3)/[facility] LABORATORY Eosinophils % 0.0 % [facility] LABORATORY Eosinophils Abs 0.0 0.0 - 0.4 [facility] x10(3)/[facility] LABORATORY Basophils % 0.1 % [facility] LABORATORY Basophils Abs 0.0 0.0 - 0.1 [facility] x10(3)/[facility] LABORATORY Immature Gran % 0.60 % [...] City/State/ZIP Code Phon e Number [place] [id number] Drive (ABNORMAL) Hemogram (07/08/2017 4:00 AM EST) Analysis Performed At Patho logist Time Signature WBC 18.8 (H) 4.0 - 9.5 [facility] x10(3)/[facility] LABORATORY RBC 4.00 (L) 4.58 - [facility] [place] 5.54 [facility] x10(6)/[facility] LABORATORY Hemoglobin 11.9 (L) 13.7 - [facility] 16.5 gm/dL [facility] LABORATORY Hematocrit 35.9 (L) 40.5 - [facility] SU 48.5 % [facility] LABORATORY MCV 89.8 82.9 - [facility] SU 93.1 [facility] LABORATORY MCH 29.8 27.5 - [place] SU 32.1 pg [facility]ORATORY MCHC 33.1 32.0 - [facility] 35.7 gm/dL [facility] Platelets 232 145 - 357 [facility] x10(3)/[facility] LABORATORY RDWSD 47.6 (H) 36.0 - [facility] SU 45.0 [facility] RDWCV 14.5 (H) 11.4 - [facility] SU 13.8 % [facility] LABORATORY MPV 9.5 7.6 - 12.9 [facility] LABORATORY nRBC % Auto 0.0 % [facility] LABORATORY nRBC Abs Auto 0.000 0.000 - [facility] 0.000 [facility] x10(3)/[facility] LABORATORY Specimen Anatomical Collection Method Collection Time Receive d Time (Source) Location / / Volume Laterality Blood specimen 07/08/2017 4:00 AM 017 4:09 (specimen) EST AM EST Resulting Agency Comment Spec In Lab Yuan Webber MD HEMATOLOGY ORDERABLES Performing Organization Address City/[facility]/ZIP [place] [address] (ABNORMAL) Electrolytes panel (07/08/2017 4:00 AM EST) athologist Signature Sodium 139 135 - 145 [facility] mmol/L [facility] LABORATORY Potassium 4.7 3.5 - 5.0 [facility] mmol/L [facility]ORATORY Comment: result rechecked-K Please note: [...] City/[facility]/ZIP [place] [address] (ABNORMAL) Cardiac Enzymes (LEB/CGP) (07/08/2017 4:00 AM EST) P athologist Signature Troponin-T 1.88 (H) 0.00 - [facility] 0.00 ng/mL [facility] Comment: The 99th percentile for [...] additional sample may be indicated. Reference: [employer] [place] Definition of Myocardial Infarction. Journal of the [place] [employer] 2012;60:1581-98 CK, Total 413 (H) 0 - 200 unit/L [facility] LAB[facility]ORY Comment: result rechecked-K Specimen Anatomical Collection Method Collection Time Receive d Time (Source) Location / / Volume Laterality Blood specimen 07/08/2017 4:00 AM 017 4:09 (specimen) EST AM EST Resulting Agency Comment Spec In Lab Yuan Webber MD CHEMISTRY ORDERABLES Performing Organization Address City/State/[place] [address] (ABNORMAL) Glucose, fasting (07/08/2017 4:00 AM EST) athologist Signature Glucose 287 (H) 65 - 99 [facility] Fasting mg/dL [facility] Comment: ?Fasting* Glucose Interpretive C [...] of Diabetes Mellitus, Position Statement from the [place] [employer]. ??Diabete s Care, Volume 33, Supplement 1, Jul 2009 Specimen Anatomical Collection Method Collection Time Receive d Time (Source) Location / / Volume Laterality Blood specimen 07/08/2017 4:00 AM 017 4:09 (specimen) EST AM EST Resulting Agency Comment Spec In Lab Yuan Webber MD CHEMISTRY ORDERABLES Performing Organization Address [facility] [place] [address] (ABNORMAL) Creatinine (07/08/2017 4:00 AM EST) Analysis Performed At Patho logist Time Signature Creatinine 1.55 (H) 0.80 - [facility] 1.50 mg/dL [facility]ORY Estimated GFR 44 (L) >=60 [facility] Comment: The reported eGFR should be multiplied b y 1.2 for patients. The MDRD is not an appropriate measure o f renal function for patients with body mass extremes or in patients with acute kidney failure. [email or web address] Specimen Anatomical Collection Method Collection Time Receive d Time (Source) Location / / Volume Laterality Blood specimen 07/08/2017 4:00 AM 017 4:09 (specimen) EST AM EST Resulting Agency Comment Spec In Lab Yuan Webber MD CHEMISTRY ORDERABLES Performing Organization Address City/[facility]/ZIP Code Phon e Number [address] BUN (07/08/2017 4:00 AM EST) P athologist Signature BUN 16 10 - 20 [facility] mg/dL [facility] LABORATORY Specimen Anatomical Collection Method Collection Time Receive d Time (Source) Location / / Volume Laterality Blood specimen 07/08/2017 4:00 AM 017 4:09 (specimen) EST AM EST Resulting Agency Comment Spec In Lab Yuan Webber MD CHEMISTRY ORDERABLES Performing Organization Address City/[facility]/ZIP [place] [address] (ABNORMAL) POCT Glucose (07/08/2017 3:00 AM EST) P athologist Signature POC Glucose 273 (H) 65 - 199 [facility] mg/dL [facility] Comment: Supplemental ranges: <140 mg/dL before meals <180 mg/dL all other times of the day Specimen Anatomical Collection Method Collection Time Receive d Time (Source) Location / / Volume Laterality Blood specimen 07/08/2017 3:00 AM 017 3:00 (specimen) EST AM EST Daphne Shahid MD POINT OF CARE TEST ORDERABLE S Performing Organization Address City/[facility]/ZIP [place] [address] (ABNORMAL) POCT Glucose (07/08/2017 1:57 AM EST) P athologist Signature POC Glucose 288 (H) 65 - 199 [facility] mg/dL [facility] Comment: Supplemental ranges: <140 mg/dL before meals <180 mg/dL all other times of the day Specimen Anatomical Collection Method Collection Time Receive d Time (Source) Location / / Volume Laterality Blood specimen 07/08/2017 1:57 AM 017 1:57 (specimen) EST AM EST Daphne Shahid MD POINT OF CARE TEST ORDERABLE S Performing Organization Address City/State/ZIP [place] [address] (ABNORMAL) POCT Glucose (07/08/2017 1:01 AM EST) P athologist Signature POC Glucose 315 (H) 65 - 199 [facility] mg/dL [facility] Comment: Supplemental ranges: <140 mg/dL before meals <180 mg/dL all other times of the day Specimen Anatomical Collection Method Collection Time Receive d Time (Source) Location / / Volume Laterality Blood specimen 07/08/2017 1:01 AM 017 1:01 (specimen) EST AM EST Daphne Shahid MD POINT OF CARE TEST ORDERABLE S Performing Organization Address City/State/[place] [address] (ABNORMAL) BLOOD GAS 2 ARTERIAL (07/08/2017 12:09 AM EST) athologist Signature pH Art 7.26 7.35 - [facility] (Critical) 7.45 [facility] Comment: Noted by musical instrument maker or repairer. pCO2 Art 41 35 - 45 [...] [facility] LAB[facility]AT[facility] COHB Art 0.2 % [facility] Comment: Noted by musical instrument maker or repairer. FIO2 Art 40 % [facility] LABORATORY PF Ratio Art [address] [facility] LABOR[facility]ORY Specimen Anatomical Collection Method Collection Time Receive d Time (Source) Location / / Volume Laterality Blood specimen Arterial Draw / 07/08/2017 12:09 2016 5:31 (specimen) Unknown AM EST AM EST Resulting Agency Comment Spec In Lab Samy Maldonado MD CHEMISTRY ORDERABLES Performing Organization Address City/[facility]/ZIP [place] [address] (ABNORMAL) POCT Glucose (07/07/2017 10:56 PM EST) P athologist Signature POC Glucose 292 (H) 65 - 199 [facility] mg/dL [facility] Comment: Supplemental ranges: <140 mg/dL before meals <180 mg/dL all other times of the day Specimen Anatomical Collection Method Collection Time Receive d Time (Source) Location / / Volume Laterality Blood specimen 07/07/2017 10:56 7 (specimen) PM EST 10:56 PM EST Daphne Shahid MD POINT OF CARE TEST ORDERABLE S Performing Organization Address City/State/ZIP [place] [address] (ABNORMAL) BLOOD GAS 2 ARTERIAL (07/07/2017 10:04 PM EST) P athologist Signature pH Art 7.22 7.35 - [facility] (Critical) 7.45 [facility] Comment: Noted by musical instrument maker or repairer. pCO2 Art 42 35 - 45 [...] [facility] COHB Art 0.7 % [facility] [...] [facility] Comment: Noted by musical instrument maker or repairer. FIO2 Art 40 % [facility] LABORATORY PF Ratio Art [address] [facility] LAB[facility]ORY Specimen Anatomical Collection Method Collection Time Receive d Time (Source) Location / / Volume Laterality Blood specimen 07/07/2017 10:04 7 (specimen) PM EST 10:04 PM EST Daphne Shahid MD CHEMISTRY ORDERABLES Performing Organization Address City/State/[place] [address] (ABNORMAL) Hemoglobin (07/07/2017 10:00 PM EST) athologist Signature Hemoglobin 12.8 (L) 13.7 - [place] [facility] 16.5 gm/dL [facility] LABOR[facility] Specimen Anatomical Collection Method Collection Time Receive d Time (Source) Location / / Volume Laterality Blood specimen 07/07/2017 10:00 7 (specimen) PM EST 10:13 PM EST Resulting Agency Comment Spec In Lab Yuan Webber MD HEMATOLOGY ORDERABLES Performing Organization Address City/[facility] [place] [address] (ABNORMAL) Potassium (07/07/2017 10:00 PM EST) athologist [facility] Potassium 3.4 (L) 3.5 - 5.0 [facility]/L [facility] Comment: Please note: ??Patients with [...] Webber MD CHEMISTRY ORDERABLES Performing Organization Address [facility] [place] [address] (ABNORMAL) POCT Glucose (07/07/2017 8:49 PM EST) athologist [facility] POC Glucose 241 (H) 65 - 199 [facility] mg/dL [facility] Comment: Supplemental ranges: <140 mg/dL before meals <180 mg/dL all other times of the day Specimen Anatomical Collection Method Collection Time Receive d Time (Source) Location / / Volume Laterality Blood specimen 07/07/2017 8:49 PM 017 8:49 (specimen) EST PM EST Daphne Shahid MD POINT OF CARE TEST ORDERABLE S Performing Organization Address City/[facility]/ZIP Code Phon e Number [address] Prepare Albumin 5% in [...] City/[facility]/ZIP Code Phon e Number [address] EKG 12 Lead (07/07/2017 7:17 PM EST) Component Value Ref Range Test Analysis Performed Pathologis t Method Time At Signature Ventricular rate 75 BPM MUSE SYSTEM Atrial Rate 75 BPM MUSE SYSTEM P-R Interval 168 ms MUSE SYSTEM QRS Duration 104 ms MUSE SYSTEM Q-T Interval 462 ms MUSE SYSTEM QTC Calculated 515 ms MUSE SYSTEM (Bezet) Calculated P [place] 52 degrees MUSE SYSTEM Calculated R [place] -40 degrees MUSE SYSTEM Calculated T [place] 39 degrees MUSE SYSTEM INTERPRETATION Normal sinus [...] pH Art 7.21 7.35 - [facility] (Critical) 7.45 [facility] Comment: Noted by musical instrument maker or repairer. pCO2 Art 50 (H) 35 - [...] [facility] COHB Art 0.5 % [facility] [...] [facility] Comment: Noted by musical instrument maker or repairer. Please note: Patients with WBC >100,000 [...] [facility] LABOR[facility] Comment: Noted by musical instrument maker or repairer. FIO2 Art 100 % [facility] LABOR[facility] PF Ratio Art [address] [facility] LABORATORY Specimen Anatomical Collection Method Collection Time Receive d Time (Source) Location / / Volume Laterality Blood specimen 07/07/2017 6:57 PM 017 6:57 (specimen) EST PM EST Daphne Shahid MD CHEMISTRY ORDERABLES Performing Organization Address City/State/[place] [address] (ABNORMAL) BLOOD GAS 2 ARTERIAL (07/07/2017 5:31 PM EST) athologist Signature pH Art 7.29 7.35 - [facility] (Critical) 7.45 [facility] Comment: Noted by musical instrument maker or repairer. pCO2 Art 48 (H) 35 - [...] [facility] COHB Art 0.3 % [facility] [...] City/[facility]/ZIP [place] [address] Fibrinogen (07/07/2017 5:30 PM EST) athologist Signature Fibrinogen 224 180 - 510 [facility] mg/dL [facility] Comment: Called by: JEET, Read [...] HEMATOLOGY ORDERABLES Performing Organization Address City/[facility] Code Phon e Number [address] APTT (07/07/2017 5:30 PM [...] ORDERABLES Performing Organization Address City/[facility]/ZIP [facility] [place] [address] (ABNORMAL) Prothrombin Time (07/07/2017 5:30 PM EST) athologist Signature PT 19.0 (H) 11.8 - 14.0 [facility] sec [facility] INR 1.6 (H) 0.9 - [...] Organization Address City/State/[place] [address] (ABNORMAL) Hemogram (07/07/2017 5:30 PM EST) athologist Signature WBC 19.6 (H) 4.0 - 9.5 [facility] x10(3)/[facility] LABORATORY RBC 3.08 (L) 4.58 - [facility] 5.54 [facility] x10(6)/[facility] LABORATORY Hemoglobin 9.2 (L) 13.7 - [facility] 16.5 gm/dL [facility] Hematocrit 28.0 (L) 40.5 - [facility] 48.5 % [facility] Comment: This result has been [...] RDWSD 46.5 (H) 36.0 - 45.0 fL [facility] RDWCV 14.1 (H) 11.4 - 13.8 % [facility]ORY MPV 9.5 7.6 - 12.9 fL [facility] nRBC % Auto 0.0 % [facility] LABORATORY nRBC Abs Auto 0.000 0.000 - 0.000 x10(3)/[facility] LABORATORY Specimen Anatomical Collection Method Collection Time Receive d Time (Source) Location / / Volume Laterality Blood specimen 07/07/2017 5:30 PM 017 5:34 (specimen) EST PM EST Resulting Agency Comment Spec In Lab Yifan Perez MD HEMATOLOGY ORDERABLES Performing Organization Address City/[facility] Phon e Number [address] Prepare Platelets, Apheresis (07/07/2017 5:00 PM EST) athologist Signature Dispensed? Yes [facility] Specimen Anatomical Collection Method Collection Time Receive d Time (Source) Location / / Volume Laterality Blood specimen 07/07/2017 5:00 PM 017 4:58 (specimen) EST PM EST Daphne Shahid MD BLOOD BANK ORDERABLES Performing Organization Address [facility] Phon e Number [address] Platelet count (07/07/2017 4:55 PM EST) athologist Signature Platelets 177 145 - 357 [facility] x10(3)/[facility] LABORATORY Plat Immature 1.5 0.0 - 7.4 [facility] Comment: Limitation of the Immature Platelet Frac tion (IPF)-May be less reliable when the platelet count is less than 56q087/u L due to statistical imprecision. The IPF [...] in a decreased state of production. References: [employer] The Clinical Value of the Immature Platelet Fraction (IPF) in Cell Recovery Document Number 10-1143 12/2010 [employer] The Role of the Imm [...] City/[facility]/ZIP [place] [address] (ABNORMAL) Hemoglobin and Hematocrit, blood (07/07/2017 4:55 PM EST) athologist Signature Hemoglobin 9.1 (L) 13.7 - 16.5 [facility] gm/dL [facility] Comment: This result has been [...] City/[facility]/ZIP [place] [address] (ABNORMAL) BLOOD GAS 2 ARTERIAL (07/07/2017 4:38 PM EST) Analysis Performed At Patho logist Time Signature pH Art 7.37 7.35 - [facility] 7.45 [facility] pCO2 Art 44 35 - 45 [facility] mmHg [facility] pO2 Art 322 (H) 85 - 104 [facility] mmHg [facility] HCO3 Art 24.9 20.0 - [facility] 26.0 [facility] mmol/L [facility] LABORATORY BE Art -0.4 -3.0 - 3.0 [facility] mmol/L [facility] Hgb Blood Gas 10.1 (L) 13.7 - [facility] 16.5 gm/dL [facility] O2HB Art 98.7 (H) 94.0 - [facility] 97.0 % [facility] COHB Art 0.1 % [facility] [...] [facility] Comment: Noted by musical instrument maker or repairer. Note: ??Total bilirubin higher than 20 [...] Organization Address City/State/[place] [address] (ABNORMAL) BLOOD GAS 2 VENOUS (07/07/2017 4:06 PM EST) Analysis Performed At Patho logist Time Signature pH Cody 7.31 (L) 7.32 - [facility] 7.42 [facility] pCO2 Cody 47 41 - 51 [facility] LABORATORY pO2 Cody 53 (H) 25 - 40 [facility] LABORATORY HCO3 Cody 22.7 mmol/L [facility] BE Cody -3.7 mmol/L [facility] Hgb Blood Gas 10.2 (L) 13.7 - [facility] 16.5 gm/dL [facility] O2HB Cody 81.0 % [facility] [...] [facility] Comment: Noted by musical instrument maker or repairer. Note: ??Total bilirubin higher than 20 [...] [facility] LAB[facility] BGas Source Venous [facility] LABORATORY Specimen Anatomical Collection Method Collection Time Receive d Time (Source) Location / / Volume Laterality Blood specimen 07/07/2017 4:06 PM 017 4:06 (specimen) EST PM EST Daphne Shahid MD CHEMISTRY ORDERABLES Performing Organization Address City/State/[place] [address] (ABNORMAL) BLOOD GAS 2 ARTERIAL (07/07/2017 4:05 PM EST) Analysis Performed At Patho logist Time Signature pH Art 7.36 7.35 - [facility] 7.45 [facility] pCO2 Art 40 35 - 45 [facility] LABORATORY pO2 Art 282 (H) 85 - 104 [facility] LABORATORY HCO3 Art 22.1 20.0 - [facility] 26.0 [facility] mmol/L [facility] LABORATORY BE Art -3.4 (L) -3.0 - 3.0 [facility] mmol/L [facility] Hgb Blood Gas 10.2 (L) 13.7 - [facility] 16.5 gm/dL [facility] O2HB Art 98.4 (H) 94.0 - [facility] 97.0 % [facility] COHB Art 0.3 % [facility] [...] [facility] Comment: Noted by musical instrument maker or repairer. Note: ??Total bilirubin higher than 20 [...] Organization Address City/State/[place] [address] (ABNORMAL) BLOOD GAS 2 ARTERIAL (07/07/2017 2:29 PM EST) Analysis Performed At Patho logist Time Signature pH Art 7.43 7.35 - [facility] 7.45 [facility] pCO2 Art 36 35 - 45 [facility] mmHg [facility] pO2 Art 221 (H) 85 - 104 [facility] LABORATORY HCO3 Art 23.2 20.0 - [facility] 26.0 [facility] mmol/[facility] LABORATORY BE Art -1.2 -3.0 - 3.0 [facility] mmol/L [facility] Hgb Blood Gas 13.9 13.7 - [facility] 16.5 gm/dL [facility] O2HB Art 97.8 (H) 94.0 - [facility] 97.0 % [facility] COHB Art 1.1 % [facility] [...] CHEMISTRY ORDERABLES Performing Organization Address City/[facility] [place] [address] Prepare Coag Factors (Non-Hemophilia) (07/07/2017 1:25 PM EST) P athologist Signature Dispensed? Yes [facility] Specimen Anatomical Collection Method Collection Time Receive d Time (Source) Location / / Volume Laterality Blood specimen 07/07/2017 1:25 PM 017 1:21 (specimen) EST PM EST Daphne Shahid MD BLOOD BANK ORDERABLES Performing Organization Address City/[facility]/ZIP [place] [address] Prepare RBC (07/07/2017 1:10 PM EST) P athologist Signature Dispensed? Yes [facility] Specimen Anatomical Collection Method Collection Time Receive d Time (Source) Location / / Volume Laterality Blood specimen 07/07/2017 1:10 PM 017 1:05 (specimen) EST PM EST Daphne Shahid MD BLOOD BANK ORDERABLES Performing Organization Address City/[facility]/[place] [address] POCT Glucose (07/07/2017 11:56 AM EST) athologist Signature POC Glucose 188 65 - 199 [place] mg/dL [facility] Comment: Supplemental ranges: <140 mg/dL before meals <180 mg/dL all other times of the day Specimen Anatomical Collection Method Collection Time Receive d Time (Source) Location / / Volume Laterality Blood specimen 07/07/2017 11:56 7 (specimen) AM EST 11:56 AM EST Daphne Shahid MD POINT OF CARE TEST ORDERABLE S Performing Organization Address City/State/ZIP Code Phon e Number [address] POCT Glucose (07/07/2017 11:05 AM EST) athologist Signature POC Glucose 168 65 - 199 [facility] mg/dL [facility] Comment: Supplemental ranges: <140 mg/dL before meals <180 mg/dL all other times of the day Specimen Anatomical Collection Method Collection Time Receive d Time (Source) Location / / Volume Laterality Blood specimen 07/07/2017 11:05 7 (specimen) AM EST 11:05 AM EST Daphne Shahid MD POINT OF CARE TEST ORDERABLE S Performing Organization Address City/State/ZIP Code Phon e Number [address] POCT Glucose (07/07/2017 10:02 AM EST) athologist Signature POC Glucose 191 65 - 199 [place] [facility] mg/dL [facility] Comment: Supplemental ranges: <140 mg/dL before meals <180 mg/dL all other times of the day Specimen Anatomical Collection Method Collection Time Receive d Time (Source) Location / / Volume Laterality Blood specimen 07/07/2017 10:02 7 (specimen) AM EST 10:02 AM EST Daphne Shahid MD POINT OF CARE TEST ORDERABLE S Performing Organization Address City/State/ZIP [place] [address] POCT Glucose (07/07/2017 7:53 AM EST) athologist Signature POC Glucose 178 65 - 199 [place] mg/dL [facility] Comment: Supplemental ranges: <140 mg/dL before meals <180 mg/dL all other times of the day Specimen Anatomical Collection Method Collection Time Receive d Time (Source) Location / / Volume Laterality Blood specimen 07/07/2017 7:53 AM 017 7:53 (specimen) EST AM EST Daphne Shahid MD POINT OF CARE TEST ORDERABLE S Performing Organization Address City/State/ZIP [place] [address] POCT Glucose (07/07/2017 7:03 AM EST) athologist Signature POC Glucose 188 65 - 199 [facility] mg/dL [facility] Comment: Supplemental ranges: <140 mg/dL before meals <180 mg/dL all other times of the day Specimen Anatomical Collection Method Collection Time Receive d Time (Source) Location / / Volume Laterality Blood specimen 07/07/2017 7:03 AM 017 7:03 (specimen) EST AM EST Daphne Shahid MD POINT OF CARE TEST ORDERABLE S Performing Organization Address City/State/ZIP [place] [address] (ABNORMAL) POCT Glucose (07/07/2017 6:17 AM EST) athologist Signature POC Glucose 207 (H) 65 - 199 [facility] mg/dL [facility] Comment: Supplemental ranges: <140 mg/dL before meals <180 mg/dL all other times of the day Specimen Anatomical Collection Method Collection Time Receive d Time (Source) Location / / Volume Laterality Blood specimen 07/07/2017 6:17 AM 017 6:17 (specimen) EST AM EST Daphne Shahid MD POINT OF CARE TEST ORDERABLE S Performing Organization Address City/State/ZIP [place] [address] Differential, Automated (07/07/2017 5:15 AM EST) P athologist Signature Neutrophils % 69.7 % [facility] Neutr Abs (ANC) 5.32 1.70 - [facility] 6.10 [facility] x10(3)/[facility] LABORATORY Lymphocytes % 16.3 % [facility] Lymphocytes Abs 1.2 0.9 - 3.2 [facility] x10(3)/[facility] LABORATORY Monocytes % 10.5 % [facility] Monocyte Abs 0.8 0.3 - 0.9 [facility] x10(3)/[facility] LABORATORY Eosinophils % 2.5 % [facility] Eosinophils Abs 0.2 0.0 - 0.4 [facility] x10(3)/[facility] LABORATORY Basophils % 0.7 % [facility] Basophils Abs 0.0 0.0 - 0.1 [facility] x10(3)/[facility] LABORATORY Immature Gran % 0.30 % [...] Melisa Gran Abs 0.02 0.00 - 0.04 x10(3)/[facility] LABORATORY Specimen Anatomical Collection Method Collection Time Receive d Time (Source) Location / / Volume Laterality Blood specimen 07/07/2017 5:15 AM 017 5:34 (specimen) EST AM EST Resulting Agency Comment Spec In Lab Daphne Shahid MD HEMATOLOGY ORDERABLES Performing Organization Address City/State/[place] [address] (ABNORMAL) Hemogram (07/07/2017 5:15 AM EST) Analysis Performed At Patho logist Time Signature WBC 7.6 4.0 - 9.5 [facility] x10(3)/[facility] LABORATORY RBC 4.82 4.58 - [facility] 5.54 [facility] x10(6)/[facility] LABORATORY Hemoglobin 14.4 13.7 - [facility] 16.[facility] gm/dL [facility] Hematocrit 42.1 40.5 - [facility] 48.5 % [facility] MCV 87.3 82.9 - [facility] 93.1 [facility] LABORATORY MCH 29.9 27.5 - [place] 32.1 pg [facility] MCHC 34.2 32.0 - [facility] 35.7 gm/dL [facility]ORATORY Platelets 188 145 - 357 [facility] x10(3)/[facility] LABORATORY RDWSD 45.1 (H) 36.0 - [facility] 45.0 [facility] LABORATORY RDWCV 14.3 (H) 11.4 - [facility] 13.8 % [facility] LABORATORY MPV 9.4 7.6 - 12.9 [facility] LABORATORY nRBC % Auto 0.0 % [facility]ORY nRBC Abs Auto 0.000 0.000 - [facility] 0.000 [facility] x10(3)/[facility] LABORATORY Specimen Anatomical Collection Method Collection Time Receive d Time (Source) Location / / Volume Laterality Blood specimen 07/07/2017 5:15 AM 017 5:34 (specimen) EST AM EST Resulting Agency Comment Spec In Lab Daphne Shahid MD HEMATOLOGY ORDERABLES Performing Organization Address City/State/[place] [address] (ABNORMAL) APTT (07/07/2017 5:15 [...] Address City/State/ZIP Code Phon e Number [address] Magnesium (07/07/2017 5:15 AM EST) athologist Signature Magnesium 0.94 0.69 - 1.07 [facility] mmol/L [facility] LABORATORY Specimen Anatomical Collection Method Collection Time Receive d Time (Source) Location / / Volume Laterality Blood specimen 07/07/2017 5:15 AM 017 5:34 (specimen) EST AM EST Resulting Agency Comment Spec In Lab Daphne Shahid MD CHEMISTRY ORDERABLES Performing Organization Address City/[facility]/ZIP Code Phon e Number [address] (ABNORMAL) Basic Metabolic Panel (non-fasting) (07/07/2017 5:15 AM EST) athologist Signature Glucose Lvl 203 (H) 65 - 199 [facility] mg/dL [facility] Comment: Diabetes: [...] [facility] Estimated GFR >60 >=60 [facility] Comment: The reported eGFR should be multiplied b y 1.2 for patients. The MDRD is not an appropriate measure o f renal function for patients with body mass extremes or in patients with acute kidney failure. http://[employer]/DHnkdep http://[employer]/DHMCnkf Specimen Anatomical Collection Method Collection Time Receive d Time (Source) Location / / Volume Laterality Blood specimen 07/07/2017 5:15 AM 017 5:34 (specimen) EST AM EST Resulting Agency Comment Spec In Lab Daphne Shahid MD CHEMISTRY ORDERABLES Performing Organization Address City/State/[place] [address] (ABNORMAL) Cardiac Enzymes (LEB/CGP) (07/07/2017 5:15 AM EST) P athologist Signature Troponin-T 2.07 (H) 0.00 - [facility] 0.[facility] ng/mL [facility] Comment: The 99th percentile for [...] additional sample may be indicated. Reference: [employer] [place] Definition of Myocardial Infarction. Journal of the [place] [employer] 2012;60:1581-98 CK, Total 88 0 - 200 unit/L [facility] LABORATORY Specimen Anatomical Collection Method Collection Time Receive d Time (Source) Location / / Volume Laterality Blood specimen 07/07/2017 5:15 AM 017 5:34 (specimen) EST AM EST Resulting Agency Comment Spec In Lab Daphne Shahid MD CHEMISTRY ORDERABLES Performing Organization Address City/State/ZIP Code Phon e Number [address] POCT Glucose (07/07/2017 5:01 AM EST) athologist Signature POC Glucose 182 65 - 199 [facility]/dL [facility] Comment: Supplemental ranges: <140 mg/dL before meals <180 mg/dL all other times of the day Specimen Anatomical Collection Method Collection Time Receive d Time (Source) Location / / Volume Laterality Blood specimen 07/07/2017 5:01 AM 017 5:01 (specimen) EST AM EST Daphne Shahid MD POINT OF CARE TEST ORDERABLE S Performing Organization Address City/State/ZIP Code Phon e Number [address] POCT Glucose (07/07/2017 4:08 AM EST) athologist Signature POC Glucose 199 65 - 199 [facility] mg/dL [facility] Comment: Supplemental ranges: <140 mg/dL before meals <180 mg/dL all other times of the day Specimen Anatomical Collection Method Collection Time Receive d Time (Source) Location / / Volume Laterality Blood specimen 07/07/2017 4:08 AM 017 4:08 (specimen) EST AM EST Daphne Shahid MD POINT OF CARE TEST ORDERABLE S Performing Organization Address City/State/ZIP Code Phon e Number [address] POCT Glucose (07/07/2017 3:03 AM EST) athologist Signature POC Glucose 188 65 - 199 [facility] mg/dL [facility] Comment: Supplemental ranges: <140 mg/dL before meals <180 mg/dL all other times of the day Specimen Anatomical Collection Method Collection Time Receive d Time (Source) Location / / Volume Laterality Blood specimen 07/07/2017 3:03 AM 017 3:03 (specimen) EST AM EST Daphne Shahid MD POINT OF CARE TEST ORDERABLE S Performing Organization Address City/State/ZIP [place] [address] (ABNORMAL) POCT Glucose (07/07/2017 2:08 AM EST) P athologist Signature POC Glucose 200 (H) 65 - 199 [facility] mg/dL [facility] Comment: Supplemental ranges: <140 mg/dL before meals <180 mg/dL all other times of the day Specimen Anatomical Collection Method Collection Time Receive d Time (Source) Location / / Volume Laterality Blood specimen 07/07/2017 2:08 AM 017 2:08 (specimen) EST AM EST Daphne Shahid MD POINT OF CARE TEST ORDERABLE S Performing Organization Address City/[facility]/ZIP [place] [address] (ABNORMAL) POCT Glucose (07/07/2017 1:31 AM EST) P athologist Signature POC Glucose 209 (H) 65 - 199 [facility] mg/dL [facility] Comment: Supplemental ranges: <140 mg/dL before meals <180 mg/dL all other times of the day Specimen Anatomical Collection Method Collection Time Receive d Time (Source) Location / / Volume Laterality Blood specimen 07/07/2017 1:31 AM 017 1:31 (specimen) EST AM EST Daphne Shahid MD POINT OF CARE TEST ORDERABLE S Performing Organization Address City/[facility]/ZIP [place] [address] XR Chest PA or [...] Glucose 161 65 - 199 [facility] mg/dL [facility] Comment: Supplemental ranges: <140 mg/dL before meals <180 mg/dL all other times of the day Specimen Anatomical Collection Method Collection Time Receive d Time (Source) Location / / Volume Laterality Blood specimen 07/07/2017 12:07 7 (specimen) AM EST 12:07 AM EST Daphne Shahid MD POINT OF CARE TEST ORDERABLE S Performing Organization Address City/State/[place] [address] (ABNORMAL) APTT (07/07/2017 12:00 [...] Address City/State/ZIP Code Phon e Number [address] POCT Glucose (07/06/2017 9:55 PM EST) athologist Signature POC Glucose 109 65 - 199 [place] mg/dL [facility] Comment: Supplemental ranges: <140 mg/dL before meals <180 mg/dL all other times of the day Specimen Anatomical Collection Method Collection Time Receive d Time (Source) Location / / Volume Laterality Blood specimen 07/06/2017 9:55 PM 017 9:55 (specimen) EST PM EST Daphne Shahid MD POINT OF CARE TEST ORDERABLE S Performing Organization Address City/[facility]/ZIP Code Phon e Number [address] POCT Glucose (07/06/2017 9:04 PM EST) athologist Signature POC Glucose 120 65 - 199 [place] mg/dL [facility] Comment: Supplemental ranges: <140 mg/dL before meals <180 mg/dL all other times of the day Specimen Anatomical Collection Method Collection Time Receive d Time (Source) Location / / Volume Laterality Blood specimen 07/06/2017 9:04 PM 017 9:04 (specimen) EST PM EST Daphne Shahid MD POINT OF CARE TEST ORDERABLE S Performing Organization Address City/[facility]/ZIP Code Phon e Number [address] POCT Glucose (07/06/2017 7:45 PM EST) athologist Signature POC Glucose 158 65 - 199 [place] mg/dL [facility] Comment: Supplemental ranges: <140 mg/dL before meals <180 mg/dL all other times of the day Specimen Anatomical Collection Method Collection Time Receive d Time (Source) Location / / Volume Laterality Blood specimen 07/06/2017 7:45 PM 017 7:45 (specimen) EST PM EST Daphne Shahid MD POINT OF CARE TEST ORDERABLE S Performing Organization Address City/[facility]/ZIP [place] [address] Potassium (07/06/2017 7:40 PM EST) athologist Signature Potassium 3.9 3.5 - 5.0 [facility] mmol/L [facility] Comment: Please note: ??Patients with [...] City/[facility]/ZIP Code Phon e Number [address] (ABNORMAL) Cardiac Enzymes (LEB/CGP) (07/06/2017 7:40 PM EST) athologist Signature Troponin-T 2.27 (H) 0.00 - [facility] 0.00 ng/mL [facility] Comment: The 99th percentile for [...] additional sample may be indicated. Reference: [place] Definition of Myocardial Infarction. Journal of the [place] [employer] 2012;60:1581-98 CK, Total 93 0 - 200 unit/L [facility] LABORATORY Specimen Anatomical Collection Method Collection Time Receive d Time (Source) Location / / Volume Laterality Blood specimen 07/06/2017 7:40 PM 017 7:52 (specimen) EST PM EST Resulting Agency Comment Spec In Lab Daphne Shahid MD CHEMISTRY ORDERABLES Performing Organization Address City/[facility]/ZIP [place] [address] (ABNORMAL) POCT Glucose (07/06/2017 7:13 PM EST) P athologist Signature POC Glucose 200 (H) 65 - 199 [facility] mg/dL [facility] Comment: Supplemental ranges: <140 mg/dL before meals <180 mg/dL all other times of the day Specimen Anatomical Collection Method Collection Time Receive d Time (Source) Location / / Volume Laterality Blood specimen 07/06/2017 7:13 PM 017 7:13 (specimen) EST PM EST Daphne Shahid MD POINT OF CARE TEST ORDERABLE S Performing Organization Address City/State/ZIP [place] [address] (ABNORMAL) APTT (07/06/2017 6:15 [...] City/[facility]/ZIP [place] [address] (ABNORMAL) POCT Glucose (07/06/2017 6:03 PM EST) athologist Signature POC Glucose 236 (H) 65 - 199 [place] mg/dL [facility] Comment: Supplemental ranges: <140 mg/dL before meals <180 mg/dL all other times of the day Specimen Anatomical Collection Method Collection Time Receive d Time (Source) Location / / Volume Laterality Blood specimen 07/06/2017 6:03 PM 017 6:03 (specimen) EST PM EST Daphne Shahid MD POINT OF CARE TEST ORDERABLE S Performing Organization Address City/[facility]/ZIP [place] [address] (ABNORMAL) POCT Glucose (07/06/2017 5:01 PM EST) athologist Signature POC Glucose 235 (H) 65 - 199 [place] mg/dL [facility] Comment: Supplemental ranges: <140 mg/dL before meals <180 mg/dL all other times of the day Specimen Anatomical Collection Method Collection Time Receive d Time (Source) Location / / Volume Laterality Blood specimen 07/06/2017 5:01 PM 017 5:01 (specimen) EST PM EST Daphne Shahid MD POINT OF CARE TEST ORDERABLE S Performing Organization Address City/[facility]/ZIP [place] [address] (ABNORMAL) POCT Glucose (07/06/2017 4:06 PM EST) athologist Signature POC Glucose 202 (H) 65 - 199 [place] mg/dL [facility] Comment: Supplemental ranges: <140 mg/dL before meals <180 mg/dL all other times of the day Specimen Anatomical Collection Method Collection Time Receive d Time (Source) Location / / Volume Laterality Blood specimen 07/06/2017 4:06 PM 017 4:06 (specimen) EST PM EST Daphne Shahid MD POINT OF CARE TEST ORDERABLE S Performing Organization Address City/State/ZIP [place] [address] POCT Glucose (07/06/2017 2:59 PM EST) athologist Signature POC Glucose 178 65 - 199 [facility] Comment: Supplemental ranges: <140 mg/dL before meals <180 mg/dL all other times of the day Specimen Anatomical Collection Method Collection Time Receive d Time (Source) Location / / Volume Laterality Blood specimen 07/06/2017 2:59 PM 017 2:59 (specimen) EST PM EST Daphne Shahid MD POINT OF CARE TEST ORDERABLE S Performing Organization Address City/State/ZIP [place] [address] (ABNORMAL) Cardiac Enzymes (LEB/CGP) (07/06/2017 2:10 PM EST) athologist Signature Troponin-T 2.34 (H) 0.00 - [place] [facility] 0.00 ng/mL [facility] Comment: The 99th percentile for [...] additional sample may be indicated. Reference: [place] Definition of Myocardial Infarction. Journal of the [place] [employer] 2012;60:1581-98 CK, Total 101 0 - 200 unit/L [facility] Specimen Anatomical Collection Method Collection Time Receive d Time (Source) Location / / Volume Laterality Blood specimen 07/06/2017 2:10 PM 017 2:26 (specimen) EST PM EST Resulting Agency Comment Spec In Lab Daphne Shahid MD CHEMISTRY ORDERABLES Performing Organization Address City/[facility]/ZIP [facility] Phon e Number [address] POCT Glucose (07/06/2017 2:08 PM EST) P athologist Signature POC Glucose 192 65 - 199 [facility] mg/dL [facility] Comment: Supplemental ranges: <140 mg/dL before meals <180 mg/dL all other times of the day Specimen Anatomical Collection Method Collection Time Receive d Time (Source) Location / / Volume Laterality Blood specimen 07/06/2017 2:08 PM 017 2:08 (specimen) EST PM EST Daphne Shahid MD POINT OF CARE TEST ORDERABLE S Performing Organization Address City/[facility]/ZIP [place] [address] POCT Glucose (07/06/2017 1:04 PM EST) P athologist Signature POC Glucose 162 65 - 199 [facility]dL [facility] Comment: Supplemental ranges: <140 mg/dL before meals <180 mg/dL all other times of the day Specimen Anatomical Collection Method Collection Time Receive d Time (Source) Location / / Volume Laterality Blood specimen 07/06/2017 1:04 PM 017 1:04 (specimen) EST PM EST Daphne Shahid MD POINT OF CARE TEST ORDERABLE S Performing Organization Address City/State/[place] [address] [facility] [address] POCT Glucose (07/06/2017 12:05 PM EST) P athologist Signature POC Glucose 196 65 - 199 [facility] mg/dL [facility] Comment: Supplemental ranges: <140 mg/dL before meals <180 mg/dL all other times of the day Specimen Anatomical Collection Method Collection Time Receive d Time (Source) Location / / Volume Laterality Blood specimen 07/06/2017 12:05 7 (specimen) PM EST 12:05 PM EST Daphne Shahid MD POINT OF CARE TEST ORDERABLE S Performing Organization Address City/[facility]/ZIP Code Phon e Number [address] EKG 12 Lead (07/06/2017 12:00 PM EST) Component Value Ref Range Test Analysis Performed Pathologis t Method Time At Signature Ventricular rate 91 BPM MUSE SYSTEM Atrial Rate 91 BPM MUSE SYSTEM P-R Interval 140 ms MUSE SYSTEM QRS Duration 94 ms MUSE SYSTEM Q-T Interval 394 ms MUSE SYSTEM QTC Calculated 484 ms MUSE SYSTEM (Bezet) Calculated P [place] 36 degrees MUSE SYSTEM Calculated R [place] -19 degrees MUSE SYSTEM Calculated T [place] 104 degrees MUSE SYSTEM INTERPRETATION Normal sinus rhythm MUSE SYSTEM 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) ST & T wave abnormality, consider lateral ischemia Abnormal ECG When compared with ECG of 05-JUL-2017 20:39, No significant change was found Confirmed by MD Luci, Taurus Braun ([id number]) on 07/06/2017 5:07:33 PM Specimen Anatomical Collection Method Collection Time Receive d Time (Source) Location / / Volume Laterality 07/06/2017 12:00 07/06/2017 5:07 PM EST PM EST Daphne Shahid MD ECG ORDERABLES Performing Organization Address City/[facility] [...] City/[facility]/ZIP [place] [address] Antibody screen (07/06/2017 12:00 PM EST) Patholo gist Method Time Signature Ab Screen Negative [facility] LABORATORY Expires at 07/09/2017 [facility] 2359 on: [facility] Specimen Anatomical Collection Method Collection Time Receive d Time (Source) Location / / Volume Laterality Blood specimen 07/06/2017 12:00 7 (specimen) PM EST 12:24 PM EST Resulting Agency Comment Spec In Lab Daphne Shahid MD BLOOD BANK ORDERABLES Performing Organization Address City/[facility]/ZIP Code Phon e Number [address] ABO/Rh Typing (07/06/2017 12:00 [...] City/[facility]/ZIP [place] [address] Prothrombin Time (07/06/2017 11:24 [...] City/[facility]/ZIP Code Phon e Number [address] (ABNORMAL) APTT (07/06/2017 11:24 [...] City/[facility]/ZIP [place] [address] POCT Glucose (07/06/2017 11:02 AM EST) athologist Signature POC Glucose 187 65 - 199 [facility] mg/dL [facility] Comment: Supplemental ranges: <140 mg/dL before meals <180 mg/dL all other times of the day Specimen Anatomical Collection Method Collection Time Receive d Time (Source) Location / / Volume Laterality Blood specimen 07/06/2017 11:02 7 (specimen) AM EST 11:02 AM EST Daphne Shahid MD POINT OF CARE TEST ORDERABLE S Performing Organization Address City/[facility]/ZIP [place] [address] POCT Glucose (07/06/2017 10:18 AM EST) P athologist Signature POC Glucose 193 65 - 199 [place] [facility] mg/dL [facility] Comment: Supplemental ranges: <140 mg/dL before meals <180 mg/dL all other times of the day Specimen Anatomical Collection Method Collection Time Receive d Time (Source) Location / / Volume Laterality Blood specimen 07/06/2017 10:18 7 (specimen) AM EST 10:18 AM EST Daphne Shahid MD POINT OF CARE TEST ORDERABLE S Performing Organization Address City/State/ZIP [place] [address] POCT Glucose (07/06/2017 9:25 AM EST) athologist [employer] POC Glucose 182 65 - 199 [facility] mg/dL [facility] Comment: Supplemental ranges: <140 mg/dL before meals <180 mg/dL all other times of the day Specimen Anatomical Collection Method Collection Time Receive d Time (Source) Location / / Volume Laterality Blood specimen 07/06/2017 9:25 AM 017 9:25 (specimen) EST AM EST Daphne Shahid MD POINT OF CARE TEST ORDERABLE S Performing Organization Address City/State/ZIP [place] [address] (ABNORMAL) Cardiac Enzymes (LEB/CGP) (07/06/2017 8:10 AM EST) [facility] [employer] Troponin-T 2.26 (H) 0.00 - [facility] 0.00 ng/mL [facility] Comment: The 99th percentile for [...] additional sample may be indicated. Reference: [place] Definition of Myocardial Infarction. Journal of the [place] [employer] 2012;60:1581-98 CK, Total 124 0 - 200 unit/L [facility] Specimen Anatomical Collection Method Collection Time Receive d Time (Source) Location / / Volume Laterality Blood specimen 07/06/2017 8:10 AM 017 8:23 (specimen) EST AM EST Resulting Agency Comment Spec In Lab Daphne Shahid MD CHEMISTRY ORDERABLES Performing Organization Address City/[facility]/ZIP [place] [address] Magnesium (07/06/2017 8:10 AM EST) P athologist Signature Magnesium 0.84 0.69 - 1.07 [facility] mmol/L [facility] Specimen Anatomical Collection Method Collection Time Receive d Time (Source) Location / / Volume Laterality Blood specimen 07/06/2017 8:10 AM 017 8:21 (specimen) EST AM EST Resulting Agency Comment Spec In Lab Daphne Shahid MD CHEMISTRY ORDERABLES Performing Organization Address City/[facility]/ZIP [facility] [place] [address] (ABNORMAL) Basic Metabolic Panel (non-fasting) (07/06/2017 8:10 AM EST) P athologist Signature Glucose Lvl 199 65 - 199 [facility] mg/dL [facility] Comment: Diabetes: [...] [facility] Estimated GFR >60 >=60 [facility] Comment: The reported eGFR should be multiplied b y 1.2 for patients. The MDRD is not an appropriate measure o f renal function for patients with body mass extremes or in patients with acute kidney failure. http://[employer]/DHnkdep http://[employer]/DHnkf Specimen Anatomical Collection Method Collection Time Receive d Time (Source) Location / / Volume Laterality Blood specimen 07/06/2017 8:10 AM 017 8:21 (specimen) EST AM EST Resulting Agency Comment Spec In Lab Daphne Shahid MD CHEMISTRY ORDERABLES Performing Organization Address City/[facility]/[place] [address] POCT Glucose (07/06/2017 7:34 AM EST) P athologist Signature POC Glucose 198 65 - 199 [facility] mg/dL [facility] Comment: Supplemental ranges: <140 mg/dL before meals <180 mg/dL all other times of the day Specimen Anatomical Collection Method Collection Time Receive d Time (Source) Location / / Volume Laterality Blood specimen 07/06/2017 7:34 AM 017 7:34 (specimen) EST AM EST Daphne Shahid MD POINT OF CARE TEST ORDERABLE S Performing Organization Address City/[facility]/[place] [address] POCT Glucose (07/06/2017 7:03 AM EST) P athologist Signature POC Glucose 181 65 - 199 [place] mg/dL [facility] Comment: Supplemental ranges: <140 mg/dL before meals <180 mg/dL all other times of the day Specimen Anatomical Collection Method Collection Time Receive d Time (Source) Location / / Volume Laterality Blood specimen 07/06/2017 7:03 AM 017 7:03 (specimen) EST AM EST Daphne Shahid MD POINT OF CARE TEST ORDERABLE S Performing Organization Address City/State/ZIP Code Phon e Number [facility] [address] XR Chest PA or [...] 65 - 199 [facility] mg/dL [facility] Comment: Supplemental ranges: <140 mg/dL before meals <180 mg/dL all other times of the day Specimen Anatomical Collection Method Collection Time Receive d Time (Source) Location / / Volume Laterality Blood specimen 07/06/2017 6:21 AM 017 6:21 (specimen) EST AM EST Daphne Shahid MD POINT OF CARE TEST ORDERABLE S Performing Organization Address City/State/ZIP [place] [address] POCT Glucose (07/06/2017 5:08 AM EST) athologist Signature POC Glucose 154 65 - 199 [facility] mg/dL [facility] Comment: Supplemental ranges: <140 mg/dL before meals <180 mg/dL all other times of the day Specimen Anatomical Collection Method Collection Time Receive d Time (Source) Location / / Volume Laterality Blood specimen 07/06/2017 5:08 AM 017 5:08 (specimen) EST AM EST Daphne Shahid MD POINT OF CARE TEST ORDERABLE S Performing Organization Address City/State/ZIP [place] [address] POCT Glucose (07/06/2017 4:05 AM EST) athologist Signature POC Glucose 142 65 - 199 [facility] mg/dL [facility] Comment: Supplemental ranges: <140 mg/dL before meals <180 mg/dL all other times of the day Specimen Anatomical Collection Method Collection Time Receive d Time (Source) Location / / Volume Laterality Blood specimen 07/06/2017 4:05 AM 017 4:05 (specimen) EST AM EST Daphne Shahid MD POINT OF CARE TEST ORDERABLE S Performing Organization Address City/State/ZIP Code Phon e Number [address] POCT Glucose (07/06/2017 3:00 AM EST) athologist Signature POC Glucose 116 65 - 199 [facility] mg/dL [facility] Comment: Supplemental ranges: <140 mg/dL before meals <180 mg/dL all other times of the day Specimen Anatomical Collection Method Collection Time Receive d Time (Source) Location / / Volume Laterality Blood specimen 07/06/2017 3:00 AM 017 3:00 (specimen) EST AM EST Daphne Shahid MD POINT OF CARE TEST ORDERABLE S Performing Organization Address City/[facility]/ZIP Code Phon e Number [address] Potassium (07/06/2017 2:20 AM EST) athologist [facility] Potassium 3.9 3.5 - 5.0 [facility] mmol/L [facility] Comment: Please note: ??Patients with [...] City/[facility]/ZIP Code Phon e Number [address] Differential, Automated (07/06/2017 2:20 AM EST) athologist Signature Neutrophils % 72.9 % [facility] LABORATORY Neutr Abs (ANC) 5.53 1.70 - [facility] 6.10 [facility] x10(3)/[facility] LABORATORY Lymphocytes % 16.4 % [facility] LABORATORY Lymphocytes Abs 1.2 0.9 - 3.2 [facility] x10(3)/[facility] LABORATORY Monocytes % 9.4 % [facility]OR[facility]ORY Monocyte Abs 0.7 0.3 - 0.9 [facility] x10(3)/[facility] LABORATORY Eosinophils % 0.5 % [facility]OR[facility]ORY Eosinophils Abs 0.0 0.0 - 0.4 [facility] x10(3)/[facility] LABORATORY Basophils % 0.4 % [facility] LABORATORY Basophils Abs 0.0 0.0 - 0.1 [facility] x10(3)/[facility] LABORATORY Immature Gran % 0.40 % [...] Melisa Gran Abs 0.03 0.00 - 0.04 x10(3)/[facility] LABORATORY Specimen Anatomical Collection Method Collection Time Receive d Time (Source) Location / / Volume Laterality Blood specimen 07/06/2017 2:20 AM 017 2:33 (specimen) EST AM EST Resulting Agency Comment Spec In Lab Daphne Shahid MD HEMATOLOGY ORDERABLES Performing Organization Address City/State/[place] [address] (ABNORMAL) Hemogram (07/06/2017 2:20 AM EST) Analysis Performed At Patho logist Time Signature WBC 7.6 4.0 - 9.5 [facility] x10(3)/[facility] LABORATORY RBC 4.52 (L) 4.58 - [facility] 5.54 [facility] x10(6)/[facility] LABORATORY Hemoglobin 13.4 (L) 13.7 - [place] [facility] 16.5 gm/dL [facility]OR[facility]ORY Hematocrit 39.7 (L) 40.5 - [facility] 48.5 % [facility] MCV 87.8 82.9 - [facility] 93.1 [facility] LABORATORY MCH 29.6 27.5 - [place] 32.1 pg [facility] LABORATORY MCHC 33.8 32.0 - [place] 35.7 gm/dL [facility] LABOR[facility]ORY Platelets 189 145 - 357 [facility] x10(3)/[facility] LABORATORY RDWSD 45.6 (H) 36.0 - [facility] 45.0 [facility] LABORATORY RDWCV 14.3 (H) 11.4 - [facility] 13.8 % [facility] LABORATORY MPV 9.1 7.6 - 12.9 [facility] LABORATORY nRBC % Auto 0.0 % [facility] LABORATORY nRBC Abs Auto 0.000 0.000 - [facility] 0.000 [facility] x10(3)/[facility] LABORATORY Specimen Anatomical Collection Method Collection Time Receive d Time (Source) Location / / Volume Laterality Blood specimen 07/06/2017 2:20 AM 017 2:33 (specimen) EST AM EST Resulting Agency Comment Spec In Lab Daphne Shahid MD HEMATOLOGY ORDERABLES Performing Organization Address City/State/[place] [address] (ABNORMAL) APTT (07/06/2017 2:20 [...] Address City/State/ZIP Code Phon e Number [address] POCT Glucose (07/06/2017 2:20 AM EST) athologist Signature POC Glucose 115 65 - 199 [facility] mg/dL [facility] Comment: Supplemental ranges: <140 mg/dL before meals <180 mg/dL all other times of the day Specimen Anatomical Collection Method Collection Time Receive d Time (Source) Location / / Volume Laterality Blood specimen 07/06/2017 2:20 AM 017 2:20 (specimen) EST AM EST Daphne Shahid MD POINT OF CARE TEST ORDERABLE S Performing Organization Address City/[facility]/ZIP [place] [address] (ABNORMAL) Cardiac Enzymes (LEB/CGP) (07/06/2017 2:20 AM EST) athologist Signature Troponin-T 2.13 (H) 0.00 - [place] 0.00 ng/mL [facility] Comment: The 99th percentile for [...] additional sample may be indicated. Reference: [place] Definition of Myocardial Infarction. Journal of the [place] [employer] 2012;60:1581-98 CK, Total 129 0 - 200 unit/L [facility] LABOR[facility]ORY Specimen Anatomical Collection Method Collection Time Receive d Time (Source) Location / / Volume Laterality Blood specimen 07/06/2017 2:20 AM 017 2:33 (specimen) EST AM EST Resulting Agency Comment Spec In Lab Daphne Shahid MD CHEMISTRY ORDERABLES Performing Organization Address City/State/[place] [address] (ABNORMAL) Hemoglobin A1c (07/06/2017 [...] [id number] Est Avg Gluc See note mg/dL ST. [...] Additional resources are available on [facility] website. Macario HAMMOND, Ruthann J, Deysi R, et al. ??Tr anslating the A1C assay into estimated average glucose values. ??Diabetes Care 2008:31(8):7641-1022. Specimen Anatomical Collection Method Collection Time Receive d Time (Source) Location / / Volume Laterality Blood specimen 07/06/2017 2:20 AM 017 2:34 (specimen) EST AM EST Resulting Agency Comment Spec In Lab Daphne Shahid MD CHEMISTRY ORDERABLES Performing Organization Address City/State/[place] [address] (ABNORMAL) Lipid Panel (07/06/2017 2:20 AM EST) [facility] Method Time Signature Chol, Total 150 <=239 [place] mg/dL [facility] LABORATORY Triglycerides 129 <=199 [facility] mg/dL [facility] HDL 32 (L) >=40 [facility] mg/dL [facility] LDL Cholesterol 92 <=190 [facility] mg/dL [facility] Chol/HDL Ratio 4.7 ratio [facility] Lipid See Note [place] Interpretation [facility] Comment: Lipid management should be guided by a p atient? s ASCVD risk, goals and preferences. ACC/AHA Guidelines recommend high intens ity statin if clinical ASCVD or LDL greater than or equal to 190 mg/dL. http://Arista Powerurl.[email or web address]/SPU-CHE-Xxpwuidxk Adults aged 40-75 with LDL 70-189 mg/dL should have their 10 year ASCVD risk estimated with the ACC/AHA ASCVD risk es timator http://tools.acc.org/GCIOP-Sweb-Kqrlhjtu r/ Statin should be discussed if risk [...] Address City/State/ZIP Code Phon e Number [address] POCT Glucose (07/06/2017 1:09 AM EST) athologist Signature POC Glucose 121 65 - 199 [facility] mg/dL [facility]OR[facility] Comment: Supplemental ranges: <140 mg/dL before meals <180 mg/dL all other times of the day Specimen Anatomical Collection Method Collection Time Receive d Time (Source) Location / / Volume Laterality Blood specimen 07/06/2017 1:09 AM 017 1:09 (specimen) EST AM EST Daphne Shahid MD POINT OF CARE TEST ORDERABLE S Performing Organization Address City/[facility]/ZIP [place] [address] POCT Glucose (07/06/2017 12:06 AM EST) athologist Signature POC Glucose 147 65 - 199 [facility] mg/dL [facility] LABOR[facility]ORY Comment: Supplemental ranges: <140 mg/dL before meals <180 mg/dL all other times of the day Specimen Anatomical Collection Method Collection Time Receive d Time (Source) Location / / Volume Laterality Blood specimen 07/06/2017 12:06 7 (specimen) AM EST 12:06 AM EST Daphne Shahid MD POINT OF CARE TEST ORDERABLE S Performing Organization Address City/State/ZIP [place] [address] (ABNORMAL) POCT Glucose (07/05/2017 10:56 PM EST) athologist Signature POC Glucose 200 (H) 65 - 199 [facility] mg/dL [facility] LABORATORY Comment: Supplemental ranges: <140 mg/dL before meals <180 mg/dL all other times of the day Specimen Anatomical Collection Method Collection Time Receive d Time (Source) Location / / Volume Laterality Blood specimen 07/05/2017 10:56 7 (specimen) PM EST 10:56 PM EST Daphne Shahid MD POINT OF CARE TEST ORDERABLE S Performing Organization Address City/State/ZIP [place] [address] (ABNORMAL) POCT Glucose (07/05/2017 10:05 PM EST) athologist Signature POC Glucose 225 (H) 65 - 199 [facility] mg/dL [facility] LABOR[facility]ORY Comment: Supplemental ranges: <140 mg/dL before meals <180 mg/dL all other times of the day Specimen Anatomical Collection Method Collection Time Receive d Time (Source) Location / / Volume Laterality Blood specimen 07/05/2017 10:05 7 (specimen) PM EST 10:05 PM EST Daphne Shahid MD POINT OF CARE TEST ORDERABLE S Performing Organization Address City/State/ZIP [place] [address] (ABNORMAL) POCT Glucose (07/05/2017 9:02 PM EST) athologist Signature POC Glucose 301 (H) 65 - 199 [place] mg/dL [facility] LABORATORY Comment: Supplemental ranges: <140 mg/dL before meals <180 mg/dL all other times of the day Specimen Anatomical Collection Method Collection Time Receive d Time (Source) Location / / Volume Laterality Blood specimen 07/05/2017 9:02 PM 017 9:02 (specimen) EST PM EST Daphne Shahid MD POINT OF CARE TEST ORDERABLE S Performing Organization Address City/State/ZIP [place] [address] XR Chest PA or [...] 474 ms MUSE SYSTEM (Bezet) Calculated P [place] 50 degrees MUSE SYSTEM Calculated R [place] -28 degrees MUSE SYSTEM Calculated T [place] 90 degrees MUSE SYSTEM INTERPRETATION Sinus tachycardia [...] (ABNORMAL) Differential, Automated (07/05/2017 8:20 PM EST) [facility] gist Method Time Signature Neutrophils % 88.4 % [facility] LABORATORY Neutr Abs (ANC) 9.08 (H) 1.70 - [facility] 6.10 [facility] x10(3)/[facility] LABORATORY Lymphocytes % 7.0 % [facility] LABORATORY Lymphocytes Abs 0.7 (L) 0.9 - 3.2 [facility] x10(3)/[facility] LABORATORY Monocytes % 3.7 % [facility] LABORATORY Monocyte Abs 0.4 0.3 - 0.9 [facility] x10(3)/[facility] LABORATORY Eosinophils % 0.1 % [facility] LABORATORY Eosinophils Abs 0.0 0.0 - 0.4 [facility] x10(3)/[facility] LABORATORY Basophils % 0.2 % [facility] LABORATORY Basophils Abs 0.0 0.0 - 0.1 [facility] x10(3)/[facility] LABORATORY Immature Gran % 0.60 % [...] Organization Address City/State/[place] [address] (ABNORMAL) Hemogram (07/05/2017 8:20 PM EST) Analysis Performed At Patho logist Time Signature WBC 10.3 (H) 4.0 - 9.5 [facility] LABORATORY RBC 4.64 4.58 - [place] 5.54 [facility] x10(6)/[facility] LABORATORY Hemoglobin 14.1 13.7 - [facility] 16.5 gm/dL [facility] LABORATORY Hematocrit 40.8 40.5 - [facility] 48.5 % [facility] LABORATORY MCV 87.9 82.9 - [facility] SU 93.1 [facility] LABORATORY MCH 30.4 27.5 - [place] SU 32.1 pg [facility] LABORATORY MCHC 34.6 32.0 - [facility] SU 35.7 gm/dL [facility] LABORATORY Platelets 204 145 - 357 [facility] x10(3)/[facility] LABORATORY RDWSD 46.1 (H) 36.0 - [facility] 45.0 [facility] LABORATORY RDWCV 14.5 (H) 11.4 - [facility] SU 13.8 % [facility] LABORATORY MPV 9.7 7.6 - 12.9 [facility] LAB[facility]ORY nRBC % Auto 0.0 % [facility] LABORATORY nRBC Abs Auto 0.000 0.000 - [facility] SU 0.000 [facility] x10(3)/[facility] LABORATORY Specimen Anatomical Collection Method Collection Time Receive d Time (Source) Location / / Volume Laterality Blood specimen 07/05/2017 8:20 PM 017 8:27 (specimen) EST PM EST Resulting Agency Comment Spec In Lab Daphne Shahid MD HEMATOLOGY ORDERABLES Performing Organization Address City/State/ZIP Code Phon e Number [place] [address] APTT (07/05/2017 8:20 PM [...] Organization Address City/State/ZIP [place] [address] (ABNORMAL) Cardiac Enzymes (LEB/CGP) (07/05/2017 8:20 PM EST) athologist Signature Troponin-T 2.11 (H) 0.00 - [facility] 0.00 ng/mL [facility] LABORATORY Comment: The 99th percentile for [...] Samples for cTnT testing should be obtai epdro luis serially upon first assessment and again 3 to 6 hours later. If the clinica l suspicion is high and previous samples have been negative an additional sample may be indicated. Reference: [place] Definition of Myocardial Infarction. Journal of the [place] [employer] 2012;60:1581-98 CK, Total 149 0 - 200 unit/L [facility] LABORATORY Specimen Anatomical Collection Method Collection Time Receive d Time (Source) Location / / Volume Laterality Blood specimen 07/05/2017 8:20 PM 017 8:27 (specimen) EST PM EST Resulting Agency Comment Spec In Lab Daphne Shahid MD CHEMISTRY ORDERABLES Performing Organization Address City/[facility]/ZIP Code Phon e Number [address] (ABNORMAL) Magnesium (07/05/2017 8:20 PM EST) P athologist Signature Magnesium 0.68 (L) 0.69 - 1.07 [facility] mmol/L [facility] LABORATORY Specimen Anatomical Collection Method Collection Time Receive d Time (Source) Location / / Volume Laterality Blood specimen 07/05/2017 8:20 PM 017 8:27 (specimen) EST PM EST Resulting Agency Comment Spec In Lab Daphne Shahid MD CHEMISTRY ORDERABLES Performing Organization Address City/[facility]/ZIP [place] [address] (ABNORMAL) Basic Metabolic Panel (non-fasting) (07/05/2017 8:20 PM EST) P athologist Signature Glucose Lvl 321 (H) 65 - 199 [facility] mg/dL [facility] LABORATORY Comment: Diabetes: [...] [facility] Estimated GFR >60 >=60 [facility] LABORATORY Comment: The reported eGFR should be multiplied b y 1.2 for patients. The MDRD is not an appropriate measure o f renal function for patients with body mass extremes or in patients with acute kidney failure. http://SensorTech/DHnkdep http://SensorTech/DHMCnkf Specimen Anatomical Collection Method Collection Time Receive d Time (Source) Location / / Volume Laterality Blood specimen 07/05/2017 8:20 PM 017 8:27 (specimen) EST PM EST Resulting Agency Comment Spec In Lab Daphne Shahid MD CHEMISTRY ORDERABLES Performing Organization Address City/State/ZIP [place] [address] (ABNORMAL) POCT Glucose (07/05/2017 7:32 PM EST) P athologist Signature POC Glucose 296 (H) 65 - 199 [facility] mg/dL [facility] LABORATORY Comment: Supplemental ranges: <140 mg/dL before meals <180 mg/dL all other times of the day Specimen Anatomical Collection Method Collection Time Receive d Time (Source) Location / / Volume Laterality Blood specimen 07/05/2017 7:32 PM 017 7:32 (specimen) EST PM EST Daphne Shahid MD POINT OF CARE TEST ORDERABLE S Performing Organization Address City/State/ZIP [place] [address] CARDIAC CATHETERIZATION (07/05/2017 6:47 PM EST) Anatomical Region Laterality Modality Other Specimen (Source) Anatomical Location Collection Method / Collectio n Time Received Time / Laterality Volume Narrative 07/05/2017 7:27 PM EST ?[facility] ? Cardiac Cathete rization/Intervention Report ? Patient Name: Gregory Hoang ? Procedure Date: 07/05/2017 ? A #: [id number] ? Primary Physician: Clarisa, Jet T ? Case #: [id number] ? File Name: [id number] ? Catheterization Order Number: [id number] ? [facility] ? Final Report [place], [place] ? Patient Name: ? Gregory Natalya ?ID#: ?[id number] ? : ?1945 ? Procedure Date: ? [...] presented with: non -STEMI (w/i 7 days). [place] ?Cardiovascular Society angina c lass was IV. [...] graphy and IABP insertion in optical laboratory technician. ? Jet Mckenna M.D. ? Electronically Signed by: Jet bnuch M.D. ? Report Finalized: 07/05/2017 ??19:23 ? Report Last Ammended: 10/26/2017 ??10:29 ? Procedure Note Jet Mckenna MD - 10/26/2017Formatt ing of this note might be different from the original. [facility] Cardiac Catheterization/Intervention Re port Patient Name: Gregory Hoang Procedure Date: 07/05/2017 A #: [id number] Primary Physician: Jet Mckenna Case #: [id number] File Name: [id number] Catheterization Order Number: [id number] [facility] Final Report [place], [place] Patient Name: Gregory Hoang ID#: [id number] : 1945 Procedure Date: July 05, [...] presented with: non-STEMI ( w/i 7 days). [place] [employer] angina class was IV. No [...] y and IABP insertion in optical laboratory technician. Jet Mckenna M.D. Electronically Signed by: Jet bucnh M.D. Report Finalized: 07/05/2017 19:23 Report Last [...] Mccollum ? (Age): 1945(72y) Med Rec#: ? [id number] ?Sex: ?M ? Site Loc: ? [facility] ?Ht / Wt: ??173(cm)/86(kg) Pt. Loc: ?CCU ? BSA: ?2 Study Date: ?? 07/05/2017 ?Pt. Type: Inpatient Tape: ? Referring: Daphne Shahid ([id number]) Referring: MANDA ALCANTAR Reading: Blade Preston ([id number]) Shipping Room Supervisor: Dayami Paula BA, [facility] [...] E-wave Vmax ?0.8 ?m/sec ? MV deceleration [id number] ?msec ? MV A-wave Vmax ?0.8 ?m/sec [...] ? Mid-Inferior ?Akinetic ? Mid-Inferoseptal ?Hypokinetic ? [place]-Septal ? Akinetic ? [place]-Anterior ? Hypokinetic ? [place]-Lateral ?Hypokinetic ? [place]-Inferior ? Akinetic ? [place]-Tip ?Akinetic ? This report has been electronically sign ed by: _ Blade Preston MD ? 07/06/2017 08 :53:15 Images reviewed and interpretation [facility] Cardiac Ultrasound Laboratory Procedure Note Blade Preston MD - 07/06/2017Formatt ing of this note might be different from the original. Procedure: Transthoracic Echocardiogram Patient: NATALYA MCBRIDE(Age): [birth year]72y) Med Rec#: [id number] Sex: M Site Loc: [facility] Ht / Wt: 173(cm)/86(kg) Pt. Loc: CCU BSA: 2 Study Date: 07/05/2017 Pt. Type: Inpatie nt Tape: Referring: Daphne Shahid ([id number]) Referring: MANDA ALCANTAR Reading: Blade Preston ([id number]) Shipping Room Supervisor: Dayami Paula BA, [facility] [...] MV E-wave Vmax 0.8 m/sec MV deceleration [id number] msec MV A-wave Vmax 0.8 m/sec MV [...] Hypokinetic Mid-Posterolateral Hypokinetic Mid-Inferior Akinetic Mid-Inferoseptal Hypokinetic [place]-Septal Akinetic [place]-Anterior Hypokinetic [place]-Lateral Hypokinetic [place]-Inferior Akinetic [place]-Tip Akinetic This report has been electronically sign ed by: _ Blade Preston MD 07/06/2017 08:53:15 Images reviewed and interpretation ver ied [facility] Cardiac Ultrasound Laboratory Daphne Shahid MD ECHO ORDERABLES Differential, Automated (07/05/2017 4:55 PM EST) athologist Signature Neutrophils % 77.0 % [facility] LABORATORY Neutr Abs (ANC) 5.26 1.70 - [facility] 6.10 [facility] x10(3)/[facility] LABORATORY Lymphocytes % 13.3 % [facility] LABORATORY Lymphocytes Abs 0.9 0.9 - 3.2 [facility] x10(3)/[facility] LABORATORY Monocytes % 8.2 % [facility] LABORATORY Monocyte Abs 0.6 0.3 - 0.9 [facility] x10(3)/[facility] LABORATORY Eosinophils % 0.7 % [facility] LABORATORY Eosinophils Abs 0.0 0.0 - 0.4 [facility] x10(3)/[facility] LABORATORY Basophils % 0.4 % [facility] LABORATORY Basophils Abs 0.0 0.0 - 0.1 [facility] x10(3)/[facility] LABORATORY Immature Gran % 0.40 % [...] Melisa Gran Abs 0.03 0.00 - 0.04 x10(3)/[facility] MAR Y [facility] LABORATORY Specimen Anatomical Collection Method Collection Time Receive d Time (Source) Location / / Volume Laterality Blood specimen 07/05/2017 4:55 PM 017 5:24 (specimen) EST PM EST Resulting Agency Comment Spec In Lab Daphne Shahid MD HEMATOLOGY ORDERABLES Performing Organization Address City/State/[place] [address] (ABNORMAL) Hemogram (07/05/2017 4:55 PM EST) Analysis Performed At Patho logist Time Signature WBC 6.8 4.0 - 9.5 [facility] x10(3)/[facility] LABORATORY RBC 4.67 4.58 - [facility] 5.54 [facility] x10(6)/[facility] LABORATORY Hemoglobin 14.0 13.7 - [place] [facility] 16.5 gm/dL [facility] LABORATORY Hematocrit 41.0 40.5 - [place] [facility] 48.5 % [facility] LABORATORY MCV 87.8 82.9 - [facility] 93.1 [facility] LABORATORY MCH 30.0 27.5 - [place] [facility] 32.1 pg [facility] LABORATORY MCHC 34.1 32.0 - [place] [facility] 35.7 gm/dL [facility] LABORATORY Platelets 197 145 - 357 [facility] x10(3)/[facility] LABORATORY RDWSD 46.4 (H) 36.0 - [place] 45.0 [facility] LABORATORY RDWCV 14.5 (H) 11.4 - [place] SU 13.8 % [facility] LABORATORY MPV 9.7 7.6 - 12.9 [facility] LABORATORY nRBC % Auto 0.0 % [facility] LABORATORY nRBC Abs Auto 0.000 0.000 - [place] SU 0.000 [facility] x10(3)/[facility] LABORATORY Specimen Anatomical Collection Method Collection Time Receive d Time (Source) Location / / Volume Laterality Blood specimen 07/05/2017 4:55 PM 017 5:24 (specimen) EST PM EST Resulting Agency Comment Spec In Lab Daphne Shahid MD HEMATOLOGY ORDERABLES Performing Organization Address City/State/[place] [address] (ABNORMAL) Cardiac Enzymes (LEB/CGP) (07/05/2017 4:55 PM EST) P athologist Signature Troponin-T 1.69 (H) 0.00 - [place] 0.00 ng/mL [facility] LABORATORY Comment: The 99th percentile for [...] additional sample may be indicated. Reference: [place] Definition of Myocardial Infarction. Journal of the [place] College [employer]iology 2012;60:1581-98 CK, Total 191 0 - 200 unit/L [facility] LABORATORY Specimen Anatomical Collection Method Collection Time Receive d Time (Source) Location / / Volume Laterality Blood specimen 07/05/2017 4:55 PM 017 5:56 (specimen) EST PM EST Resulting Agency Comment Spec In Lab Daphne Shahid MD CHEMISTRY ORDERABLES Performing Organization Address City/State/ZIP Code Phon e Number [address] (ABNORMAL) pro-Brain Natriuretic Peptide (07/05/2017 4:55 PM EST) P athologist Signature ProBNP 1,598 (H) <=125 [facility] pg/mL [facility] LABORATORY Specimen Anatomical Collection Method Collection Time Receive d Time (Source) Location / / Volume Laterality Blood specimen 07/05/2017 4:55 PM 017 5:24 (specimen) EST PM EST Resulting Agency Comment Spec In Lab Daphne Shahid MD CHEMISTRY ORDERABLES Performing Organization Address City/State/ZIP Code Phon e Number [address] Magnesium (07/05/2017 4:55 PM EST) P athologist Signature Magnesium 0.78 0.69 - 1.07 [facility] mmol/L [facility] LABORATORY Specimen Anatomical Collection Method Collection Time Receive d Time (Source) Location / / Volume Laterality Blood specimen 07/05/2017 4:55 PM 017 5:24 (specimen) EST PM EST Resulting Agency Comment Spec In Lab Daphne Shahid MD CHEMISTRY ORDERABLES Performing Organization Address City/State/[place] [address] (ABNORMAL) Basic Metabolic Panel (non-fasting) (07/05/2017 4:55 PM EST) P athologist Signature Glucose Lvl 230 (H) 65 - 199 [facility] mg/dL [facility] LABORATORY Comment: Diabetes: [...] [facility] Estimated GFR >60 >=60 [facility] LABORATORY Comment: The reported eGFR should be multiplied b y 1.2 for patients. The MDRD is not an appropriate measure o f renal function for patients with body mass extremes or in patients with acute kidney failure. http://Arpeggi.KaritKarma/DHnkdep http://SensorTech/DHMCnkf Specimen Anatomical Collection Method Collection Time Receive d Time (Source) Location / / Volume Laterality Blood specimen 07/05/2017 4:55 PM 017 5:24 (specimen) EST PM EST Resulting Agency Comment Spec In Lab Daphne Shahid MD CHEMISTRY ORDERABLES Performing Organization Address City/[facility]/ZIP [place] [address] (ABNORMAL) APTT (07/05/2017 4:55 [...] City/[facility]/ZIP [place] [address] (ABNORMAL) POCT Glucose (07/05/2017 4:53 PM EST) athologist Signature POC Glucose 208 (H) 65 - 199 [facility] mg/dL [facility] LABORATORY Comment: Supplemental ranges: <140 mg/dL before meals <180 mg/dL all other times of the day Specimen Anatomical Collection Method Collection Time Receive d Time (Source) Location / / Volume Laterality Blood specimen 07/05/2017 4:53 PM 017 4:53 (specimen) EST PM EST Daphne Shahid MD POINT OF CARE TEST ORDERABLE S Performing Organization Address City/[facility]/ZIP [place] [address] EKG 12 Lead (07/05/2017 4:32 PM EST) Component Value Ref Range Test Analysis Performed Pathologis t Method Time At Signature Ventricular rate 97 BPM MUSE SYSTEM Atrial Rate 97 BPM MUSE SYSTEM P-R Interval 148 ms MUSE SYSTEM QRS Duration 96 ms MUSE SYSTEM Q-T Interval 364 ms MUSE SYSTEM QTC Calculated 462 ms MUSE SYSTEM (Bezet) Calculated P [place] 48 degrees MUSE SYSTEM Calculated R [place] -33 degrees MUSE SYSTEM Calculated T [place] 98 degrees MUSE SYSTEM INTERPRETATION Normal sinus [...] Coronary atherosclerosis of unspecified type of vessel, [place] or graft Cardiomyopathy, ischemic Other specified forms [...] dose on Wed07/07/17 at 2100, Until Discontinued, [place] teeth, Routine Given 07/08/2017 10:06 PM EST [...] or norepinephrine is ineffective. Call pager # [phone] if initiated. Rate/Dose Change 07/08/2017 7:01 PM [...] if phenyleprine and/or vasopressin ineffective.Call pager # [phone] if initiated., Routine Rate/Dose Change 07/09/2017 1:24 [...] 2.0 L/min/M2. Maximum volume 2 L. Call front of house manager for additional fluid orders: pager #[phone]. Rate/Dose Verify 07/08/2017 4:00 AM EST 100 [...] Rangel RN)0901 (New Bag - Provider: Em Jonse RN)0931 (Stopped - Provider: Em Jones RN)1738 [...] injection 50 Units 0929 (Given - Provider: Mynra Young RN) 50 Units, Subcutaneous, EVERY 24 [...]
Routine documented in this encounter Care Teams Trauma Nurse Relationship Specialty Start Date End Date Lovely Vicente MD PCP - General 04/16/[address] [place] [address] documented as of this encounter
--- OUTSIDE RECORDS SUMMARY | 2022-04-10 09:03 | XMS_ITS | Encounter Summary ---
:1945 Author Organization [facility] [place] [address] Care Team Providers Name Role Phone Lovely Vicente MD Primary Care Provider Encounter Details Date Type Department Care Team Description 07/08/2017 Orders Only [facility] [place] [address] Social History Tobacco Use Types Packs/Day [...] MD [facility] er [address] [place], [place] [address] (Wo rk) 05/28/2022 Laboratory Appointment Lab 05/28/2022 Office Visit Cardiology Zulma Dolan MD [facility] [place] [address] Liz Poole PA [facility] [place] [address] 06/10/2022 Office Visit Dermatology Laura Scherer MD [facility] ER [address] [place] [address] (Wo rk) documented as of this encounter [...] Mccollum ? (Age): 1945(72y) Med Rec#: ? [id number] ?Sex: ?M ? Site Loc: ? Ht / Wt: ??(cm)/ (kg) ? Pt. Loc: ? Study Date: ?? 07/07/2017 ?Pt. Type: Tape: ? Referring: Yuan Retana Reading: Yifan Perez MD ([id number]) Performing: Yifan Perez MD ([id number]) Diagnosis: SUMMARY: 1. Intraoperative AVELINO performed at the [facility] of Dr. Mike for the diagnosis [...] ? Mid-Inferior ?Hypokinetic ? Mid-Inferoseptal ?Hypokinetic ? [place]-Septal ? Hypokinetic ? [place]-Anterior ? Hypokinetic ? [place]-Lateral ?Hypokinetic ? [place]-Inferior ? Hypokinetic ? [place]-Tip ?Not Seen ? This report has been electronically sign ed by: _ Yifan Perez MD ? 07/08/2017 12 :25:18 Images reviewed and interpretation verif ied [facility] Cardiac Ultrasound Laboratory Procedure Note Yifan Perez MD - 07/08/2017Formatt ing of this note might be different from the original. Procedure: Transesophageal Echocardiogra m Patient: NATALYA MCBRIDE(Age): [birth year]72y) Med Rec#: [id number] Sex: M Site Loc: Ht / Wt: (cm)/ (kg) Pt. Loc: Study Date: 07/07/2017 Pt. Type: Tape: Referring: Yuan Retana Reading: Yifan Perez MD ([id number]) Performing: Yifan Perez MD ([id number]) Diagnosis: SUMMARY: 1. [facility] [...] Hypokinetic Mid-Posterolateral Hypokinetic Mid-Inferior Hypokinetic Mid-Inferoseptal Hypokinetic [place]-Septal Hypokinetic [place]-Anterior Hypokinetic [place]-Lateral Hypokinetic [place]-Inferior Hypokinetic [place]-Tip Not Seen This report has been electronically sign ed by: _ Yifan Perez MD 07/08/2017 12:25:18 Images reviewed and interpretation elvie hwang [facility] Cardiac Ultrasound Laboratory Unknown ECHO ORDERABLES documented in this encounter Visit Diagnoses Not on filedocumented in this encounter Care Teams Relocation Specialist Relationship Specialty Start Date End Date Lovely Vicente MD PCP - General 04/16/[address] [place] [address] documented as of this encounter
--- OUTSIDE RECORDS SUMMARY | 2022-04-10 09:04 | XMS_ITS | Encounter Summary ---
:1945 [place] [address] Care Team Providers Name Role Phone Lovely Vicente MD Primary Care Provider Reason for Visit Auth/Cert Specialty Diagnoses / Procedures Referred By Contact Refer red To Contact Diagnoses STEMI (ST elevation myocardial infarction) NSTEMI STEMI Procedures CARDIAC CATHETERIZATION NAYE IPI Referral ID Status Reason Start Date Expiration Date Visits Requ ested Visits Authorized [id number] 1 1 Encounter Details Date Type Department Care Team Description 07/07/2017 Anesthesia Event Main Operating Room Yifan Jaime MD [facility] DR [place] [address] [facility] Ginny Murray MD [facility] DR ANESTHESIOLOGY [place] [address] [facility] [place] [address] Anesthesia Record Procedure Summary Procedure Name [...] 2342 LDA Cath/EP Sheath 07/05/17; 0606; 8 Libyan 07/05/17 0606 by [id number] by (Fr); Right; Femoral [place] Park, Yane Cook, RN PIV 07/05/17; 1720; median 07/05/17 1720 by 07/11/17 2355 by vein (underside of arm), Prior, Yanet Maza, Angela Mccurdy, left; 18 gauge; removed 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 per policy/procedure; 07/11/17; 2355 Intra-Aortic Balloon 07/05/17; [...] Miller, Carrie L, Type: Cuffed; ETT Size: COMPUTER PROJECT MANAGER 8 mm; Santiago Blade: 2; Notes: Asleep, [...] Murray MD - 07/08/2017 5:08 PM EST [facility] Department of Anesthesiology Post-procedure Note Patient: Don Fatima Procedure Summary Date Anesthesia Start Anesthesia Stop Room / Location 07/07/17 1335 1836 [facility] OR [facility] MAIN OR Procedure Diagnosis Surgeon Responsible Provider @CABG, USING ARTERIAL GRAFT;SINGLE ARTERIAL GRAFT (WRVU 33.75) (N/A Chest); @CABG, TWO VENOUS GRAFTS & ARTERIAL GRAFT (WRVU 7.93) (N/A Chest); ENDOSCOPIC HARVEST VEIN(S) FOR CABG (WRVU 0.31) (Right Leg) (CAD) Yuan Freitas MD Hartman, Gregg S, MD All Anesthesia Providers: Anesthesiologist: Yifan Perez MD Quarry Supervisor: Ginny Murray MD Most Recent Vitals: 07/08/17 [...] SETUP performed by Manny Mcknight MD at [facility] MAIN OR ??? PRO COLONOSCOPY, REMV LESN, SNARE 01/16/2014 COLONOSCOPY, POLYPECTOMY, REMOVAL LESION BY SNARE performed by Nohemi Jaimes MD at [facility] ENDOSCOPY ??? PRO THYROIDECTOMY 03/28/2013 THYROIDECTOMY, TOTAL OR COMPLETE performed by Manny Mcknight MD at [facility] MAIN OR Social History Substance Use [...] Dolan MD [facility] [place], [place] [address] (Wo rk) 05/28/2022 Laboratory Appointment Lab 05/28/2022 Office Visit Cardiology Zulma Dolan MD [facility] [place] [address] Liz Poole PA [facility] [place] [address] 06/10/2022 Office Visit Dermatology Laura Scherer MD [facility] DR [address] [place], [place] [address] (Wo rk) documented as of [...] mg documented in this encounter Care Teams Allergy And Immunology Chief Relationship Specialty Start Date End Date Lovely Vicente MD PCP - General 04/16/[address] [place] [address] documented as of this encounter
--- OUTSIDE RECORDS SUMMARY | 2022-04-10 09:04 | XMS_ITS | Encounter Summary ---
:1945 Author Organization [facility] Address [facility] [place] [address] Care Team Providers Name Role Phone Lovely Vicente MD Primary Care Provider Reason for Visit Auth/Cert Specialty Diagnoses / Procedures Referred By Contact Refer red To Contact Diagnoses STEMI (ST elevation myocardial infarction) NSTEMI STEMI Procedures CARDIAC CATHETERIZATION NAYE IPI Referral ID Status Reason Start Date Expiration Date Visits Requ ested Visits Authorized [id number] 1 1 Encounter Details Date Type Department Care Team Description 07/07/2017 Surgery Main Operating Room Yuan Webber, @ CABG, USING ARTERIAL Barbara Ocampo MD GRAFT;SINGLE ARTERIAL Hospital [facility] GRAFT (WRVU 33.75) [facility] DR Sidd[place] [address] SURGERY [phone] [place], [place] [address] (Wo rk) Social History Tobacco [...] this encounter Discharge Summaries Martha Teague, DIRECTOR DESIGN - 07/14/2017 9:38 AM EST Inpatient - Discharge Summary Patient Name: Gregory Hoang Patient Age: 72 y.o. Birthdate: 1945 Language: Nicaraguan Race: White Ethnicity: Not nor Admit Date: [...] , @ 1:20p Patient to follow-up with Scrapper/heart failure team in one week. An appointment will be made for you. You may call [phone] Patient to follow-up with Cardiac Surgery, Dr. Yuan Webber, in ~ 4 weeks with CXR, EKG. Inpatient Provider Contact Information: [facility] Section of Cardiac Surgery [facility] [address] FAX [phone] Discharge Diagnoses (Hospital Problems) Primary Diagnoses: CAD [...] SETUP performed by Manny Mcknight MD at [facility] OR ??? PRO CABG, ARTERIAL, SINGLE N/A 07/07/2017 @CABG, USING ARTERIAL GRAFT;SINGLE ARTERIAL GRAFT (WRVU 33.75) performed by Yuan Webber MD at [facility] OR ??? PRO CABG, ARTERY-VEIN, TWO N/A 07/07/2017 @CABG, TWO VENOUS GRAFTS & ARTERIAL GRAFT (WRVU 7.93) performed by Yuan Webber MD at [facility] OR ??? PRO COLONOSCOPY, REMV LESN, SNARE 01/16/2014 COLONOSCOPY, POLYPECTOMY, REMOVAL LESION BY SNARE performed by Nohemi Jaimes MD at [facility] ENDOSCOPY ??? PRO ENDOSCOPY W/VIDEO-ASST VEIN HARVEST, CABG Right 07/07/2017 ENDOSCOPIC HARVEST VEIN(S) FOR CABG (WRVU 0.31) performed by Yuan Webber MD at [facility] OR ??? PRO THYROIDECTOMY 03/28/2013 THYROIDECTOMY, TOTAL OR COMPLETE performed by Manny Mcknight MD at [facility] OR Prior To Admission Medications Prescriptions Prior to Admission Medication Sig Dispense Refill Last Dose ??? levothyroxine (SYNTHROID) 175 mcg Tablet Take 1 tablet by mouth daily. 90 tablet 3 07/05/2017 [id number] ??? ascorbic acid, vitamin C, (VITAMIN C) [...] Hospital Course: Gregory Hoang was admitted to [facility] on 07/05/2017 via the Cardiology Service. During his hospital course, he was taken emergently to the cardiac cath lab manager for an ongoing STEMI. An IABP [...] not take or discontinue any prescription or mpfp-ibz-jctuaro medications without asking your doctor or pharmacist [...] Yuan Webber and/or the Cardiac Surgery Physician Learning And Development Analyst Team may be reached at . [...] Dr. Yuan Webber. You may use a [place] Track or treadmill but avoid any [...] friends, go to a movie, go to catholic, etc. Heavy activities: No hunting, skiing, jogging, snow shoveling, snowmobiling, lawn mowing, swimming, golf or tennis until after your return appointment with the surgeon. Do not ride motorcycles, [employer]'s tractors or horses. Avoid the use [...] , @ 1:20p Patient to follow-up with Scrapper/heart failure team in one week. Appointment will be made for you. You may call [phone] Patient to follow-up with Cardiac Surgery, Dr. [...] THREE L Lab 3L [facility] [phone] 09/07/2017 4:00 PM Luz Prescott MD Endocrinology at [place] [phone] Future Orders Complete By Expires EKG 12 Lead [EKG1 Custom] 08/14/2017 02/13/2018 Process Instructions: Scheduling Instructions: Questions: Which DH location will this be performed?: [place] Is a rhythm strip needed?: No If EKG Reason is Pre-op Evaluation, indicate diagnosis for surgery.: XR Chest PA & Lateral (Generic) [84901 [id number] Custom] 08/14/2017 02/13/2018 Process Instructions: Scheduling Instructions: Questions: Where will study be performed?: [facility] Portable exam?: Reason for exam and clinical history: CABG x 3 Other pertinent information: Stat read required?: Date of injury if applicable: Requested Time: Referral to Cardiac Rehab [UPT152 Custom] As directed Process Instructions: If no progress note charted, please enter Clinical details in comments. Scheduling Instructions: Questions: My question or request is: s/p CABG. Cardiac rehab at [facility] Referral to Home Health - at DISCHARGE [JRO7457 CPT(R)] As directed Process Instructions: Scheduling Instructions: Comments: DOCUMENTATION FOR VNA SERVICES (INCLUDING THOSE PATIENTS WITH MEDICARE COVERAGE REQUIRING HOME VNA SERVICES AND/OR HOSPICE SERVICES) PATIENT'S LOCATION: Gregory Hoang [address] [place] [address] [place] [phone] (home) Telephone Information: Kindergarten Instructional Assistant's Name: self In discussion with the attending physician, it is certified that this patient is under their care and that they, or a Nurse Practitioner, or Physician Learning And Development Analyst who is working directly with them, [...] M[facility] ([facility] [place] [facility] in [place] PHONE: [phone] FAX: [phone] RN orders: Cardiopulmonary assessment, incisional assessment, assess vital signs, assessment of rehab progress, medication management and effectiveness, home safety evaluation. Please draw INR if indicated and send result to:Dr Vicente [phone] PT ORDERS: Continue rehab for endurance, gait stability and strength with mobility and transfers. Home safety evaluation. Home exercise program if appropriate. Start of Care Date:24-48 hours after discharge SPECIAL INSTRUCTIONS: For any follow up questions, needs, or issues please call the Cardiac Surgery Office at [phone] FOR MEDICARE ONLY: (please delete this section [...] noted. Questions: Agency name and contact information: [facility] Patient location post discharge: home What services are requested: Registered Nurse Physical Therapy Start date: Responsible MD post discharge contact info: PCP Arrangements for VNA/home care: As above. VN RN OR PCP TO PLEASE REMOVE CHEST TUBE SUTURES ON OR AFTER 07/17/2017 Signed: Martha Teague APRN [facility] Section of Cardiac Surgery [facility] [address] FAX [phone] Date: 07/14/2017 CC: MD Ivania Cr Betsy, PA [address] [place] [phone] documented in this encounter Discharge Instructions Discharge [...] not take or discontinue any prescription or pcfw-jiq-mxpupxy medications without asking your doctor or pharmacist [...] Yuan Webber and/or the Cardiac Surgery Physician Learning And Development Analyst Team may be reached at . [...] Dr. Yuan Webber. You may use a [place] Track or treadmill but avoid any [...] friends, go to a movie, go to catholic, etc. ?? Heavy activities: No hunting, skiing, jogging, snow shoveling, snowmobiling, lawn mowing, swimming, golf or tennis until after your return appointment with the surgeon. Do not ride motorcycles, [employer]'s tractors or horses. Avoid the use [...] @ 1:20p ?? Patient to follow-up with Scrapper/heart failure team in one week. An appointment has been made for you, you can call [phone] ?? Patient to follow-up with Cardiac Surgery, [...] THREE L Lab 3L [facility] [phone] ?? 09/07/2017 4:00 PM Luz Prescott MD Endocrinology at [place] [phone] Future Orders Complete By Expires ?? EKG 12 Lead [EKG1 Custom] 08/14/2017 02/13/2018 ?? Process Instructions: ? Scheduling Instructions: ? Questions: ? Which location will this be performed?: [place] ?? Is a rhythm strip needed?: No ?? If EKG Reason is Pre-op Evaluation, indicate diagnosis for surgery.: ?? XR Chest PA & Lateral (Generic) [[id number] Custom] 08/14/2017 02/13/2018 ?? Process Instructions: ? Scheduling Instructions: ? Questions: ? Where will study be performed?: [facility] ?? Portable exam?: ?? Reason for exam and clinical history: CABG x 3 ?? Other pertinent information: ?? Stat read required?: ?? Date of injury if applicable: ?? Requested Time: ?? Referral to Cardiac Rehab [GZR334 Custom] As directed ? Process Instructions: ?? [...] 07/14/2017 2:34 PM EST The patient/sales representative trainee has been provided a list of Home Health Agencies/DME vendors which serve their preferred geographic area. A letter describing our affiliations was reviewed with them and theywere educated about their right to choose where referrals are placed. Patient requests referral to [facility]. PHONE: [phone] FAX: [phone] Expected date of discharge: 07/14 Referral routed to the Detail Sergeant for matching with agency/vendor and to provide [...] – [place] Endocrinology Diabetes Management Pager [phone] minutes of this 35 minute visit was spent with the patient in counseling on diabetes and treatment plan, reviewing all glucose and insulin data as well as relevant laboratory results with the patient, and coordination of care on the inpatient unit including nursing and primary team. Zulma Power RN - 07/14/2017 10:30 AM EST The patient/sales representative trainee has been provided a list of Home Health Agencies/DME vendors which serve their preferred geographic area. A letter describing our affiliations was reviewed with them and theywere educated about their right to choose where referrals are placed. Patient requests referral to : Yasmani Munguia ([facility] [place] [facility]-is in [place] PHONE: [phone] FAX: [phone]. Expected date of discharge: 07/14/17 Referral routed to the Detail Sergeant for matching with agency/vendor and to provide [...] hours. If BG remains greater than 240, [id number] units (no more than three times) &??call [...] #6 s/p CABG X3. [facility]SB[facility] at [place], reports no symptoms but did drink some [...] – [place] Endocrinology Diabetes Management Pager [phone] minutes of this 25 minute visit [...] of infiltration/extravasation Discussed plan of care with EMPLOYMENT PROGRAMS ANALYST and RN. Elevate exrtemity and apply intermittent Warm compresses. Name of MD contacted Dr. Shaw Brown 07/13/2017 @ 0617 Name of RN contacted Ale Rangel RN Name of Pharmacist if consulted NA Name of Plastics MD ( if consulted) NA (Mandatory photo for infiltrations/ extravasations scoring a stage 2 or greater, but recommended forstage 1)( include measuring tape and identifier in the photo) HACK SAW OPERATOR CARING FOR THIS PATIENT WILL CONTINUE [...] measuring tape and identifier in the photo) HACK SAW OPERATOR CARING FOR THIS PATIENT WILL CONTINUE [...] regard to both infiltrates addressed by this teletypewriter operator.All of MrMadiha Hoang's responses were entirely appropriate. Images of infiltrates attached here. L Martha Teague, DIRECTOR DESIGN - 07/13/2017 8:01 AM EST Cardiac Surgery Progress Note: ID: [id number] 72 year old male POD#6 s/p CABGx3 [...] I have met with the patient/sales representative trainee to discuss discharge planning needs. I have provided the [facility] [place], Office of Care Management letter from the Front End Driver pertaining to rehab referrals. I have also provided a letter describing our affiliations within the [facility] and educated them about their right to choose where referrals are placed. ?? I reviewed the different levels of rehab including SNF, swing, acute and LTAC with the patient/sales representative trainee. ?? The patient/sales representative trainee has been provided a list of facilities within their preferred geographic area. ?? I have requested that the patient/sales representative trainee provide at least three choices for referral. ?? The patient/sales representative trainee have requested referrals to: ?? [facility]. [facility] ?? 2. [facility] ?? 3. More to be entered ?? Expected date of discharge: 07/14 Note routed to Detail Sergeant who will communicate referrals to facilities and [...] hours. If BG remains greater than 240, [id number] units (no more than three times) & [...] – [place] Endocrinology Diabetes Management Pager [phone] 20 minutes of this 35 minute visit was spent with the patient in counseling on diabetes and treatment plan, reviewing all glucose and insulin data as well as relevant laboratory results with the patient, and coordination of care on the inpatient unit including nursing and primary team. Makayla Stevenson APRN - 07/12/2017 9:52 AM EST Cardiac Surgery Progress Note: ID: [id number] 72 year old male POD#5 s/p CABGx3 [...] 7:18 PM EST Patient arrived from [facility]. VSS. MSI dressing pulled off with [...] AM EST Cardiac Surgery Progress Note: ID: [id number] 72 year old male POD#4 s/p CABGx3 [...] hours. If BG remains greater than 240, [id number] units (no more than three times) & [...] AM EST Cardiac Surgery Progress Note: ID: [id number] 72 year old male POD#3 s/p CABGx3 [...] Gas) No results found for: PHART, PO2ART, NRS3BLV Assessment/Plan: 72 year old male POD#3 s/p [...] Mami Thao - 07/09/2017 6:29 PM EST Torch Brazer Encounter Note Patient Name: Gregory Hoang : [id number] MR#: [id number] Admit Date: 07/05/2017 4:20 PM Hospital Day 4 days Narrative: Patient was sitting in chair, hugging heart pillow, opened his eyes, nodding to come into room Assessment: Patient was sleepy. Intervention and Outcome: Introduced rubber calender helper services and patient reached his hand out in appreciation. Follow-up: Torch Brazer remains available for support. Time in Direct [...] 07/09/2017 10:45 AM EST Report given to therapeutic support staff to cover care Maddison Cee PA - 07/09/2017 9:00 AM EST Cardiac Surgery Progress Note: ID: [id number] 72 year old male POD#2 s/p CABGx3 [...] completed shifts: In: 7977.4 [I.V.:7477.4; Other:500] Out: 0615 [Urine:3000; Other:615] I- 4 L O- 2.7 [...] Attending Surgeon on rounds. Signed: STEPHANIE Iqbal [facility] Section of Cardiac Surgery Date: 07/09/2017 [...] when IABP d/c'ed. Gretchen Carolina, PT Pager [phone] Maddison Cee PA - 07/08/2017 11:27 AM EST Cardiac Surgery Progress Note: ID: [id number] 72 year old male POD#1 s/p CABGx3 [...] Attending Surgeon on rounds. Signed: STEPHANIE Iqbal [facility] Section of Cardiac Surgery Date: 07/08/2017 [...] in place in R femoral. No hematoma. KNUCKLER- Intact Psych- Anxious Skin- Dry, no peripheral [...] intact. IABP in place in R femoral. KNUCKLER- Intact Psych- Anxious Skin- Dry, no peripheral [...] pending CABG - hold metformin - f/u [facility] ?? #Home Meds - continue levothyroxine 175mcg [...] note for details. DAPHNE SHAHID MD Pager [phone] Jet Mckenna MD - 07/05/2017 6:48 PM EST Preliminary Cardiac Catheterization Procedure Note: Procedure(s) performed: Left heart cath, IABP insertion Access: Right CONTROL SYSTEMS DESIGNER-->8fr IABP A time-out was conducted prior to [...] effect. Heparin gtt maintained. Pt transferred to cardiac cath lab manager. documented in this encounter H&P Notes Daphne Shahid MD - 07/05/2017 6:08 PM EST CARDIOLOGY HISTORY & PHYSICAL EXAM Date of Admission: 07/05/2017 ( Hospital Day 0 days ) Responsible Attending: Daphne Shahid MD PCP: Lovely Vicente MD PCP#: [phone] Patient Active Problem List Diagnosis Code ??? [...] with heparin drip and transferred to [facility]. While there, continued sob, question of chest pain. Stat TTE showing WMA diffusely and EF around 20%. No significant valvular disease. Taken to the cardiac cath lab manager urgently for ongoing STEMI. [facility] Labs: [...] monitor I/O - s/p lasix in the cardiac cath lab manager, redose to aim net neg 1L [...] Medicine, PGY-2 Cardiology S1, Team Pager # [phone] CARDIOLOGY ATTENDING NOTE Patient: Gregory Hoang Date [...] amenable for PCI. DAPHNE SHAHID MD Pager [phone] documented in this encounter Miscellaneous Notes Consult Note - Daphne Shahid MD - 07/14/2017 11:46 AM EST Heart Failure Service Inpatient Consult Note Gregory Hoang Date of : 1945 Age: 72 y.o. Today's date: 07/14/17 PCP: Lovely Vicente MD DEMAND INSPECTOR: None Place of Service: C451-A Reason [...] SETUP performed by Manny Mcknight MD at [facility] OR ??? PRO CABG, ARTERIAL, SINGLE N/A 07/07/2017 @CABG, USING ARTERIAL GRAFT;SINGLE ARTERIAL GRAFT (WRVU 33.75) performed by Yuan Webber MD at [facility] OR ??? PRO CABG, ARTERY-VEIN, TWO N/A 07/07/2017 @CABG, TWO VENOUS GRAFTS & ARTERIAL GRAFT (WRVU 7.93) performed by uYan Webber MD at [facility] OR ??? PRO COLONOSCOPY, REMV LESN, SNARE 01/16/2014 COLONOSCOPY, POLYPECTOMY, REMOVAL LESION BY SNARE performed by Nohemi Jaimes MD at [facility] ENDOSCOPY ??? PRO ENDOSCOPY W/VIDEO-ASST VEIN HARVEST, CABG Right 07/07/2017 ENDOSCOPIC HARVEST VEIN(S) FOR CABG (WRVU 0.31) performed by Yuan Webber MD at [facility] OR ??? PRO THYROIDECTOMY 03/28/2013 THYROIDECTOMY, TOTAL OR COMPLETE performed by Manny Mcknight MD at [facility] MAIN OR Outpt Meds: Current [...] following studies: EKG 07/14/17: NSR 75 bpm, ROPE CUTTER anterior infarct, LAD CXR 07/11/17: FINDINGS: Sternotomy wires. The patient has been extubated, left chest tube removed, and Hitchcock-Suzi catheter removed since the 07/07/2017 study. Atelectasis [...] was discussed with Zehra. Jaden Kelley MD Chrome Plater Pager [phone] CARDIOLOGY ATTENDING NOTE Patient: Gregory Hoang Date [...] heart failure clinic. DAPHNE SHAHID MD Pager [phone] Plan of Care - Alden Chavarria, RUBBER CHEMIST - 07/14/2017 11:35 AM EST Problem: Patient [...] Disposition: home with assist Alden Jorge Genikevin, RUBBER CHEMIST Pager: [phone] Inpatient Physical Therapy Problem: Acute Rehab Services [...] sit/sit to supine -- Bed Mobility Goal, [place] Level supervision required -- Bed Mobility Goal, [...] - 3 days -- Gait Training Goal, [place] Level supervision required -- Gait Training Goal, [...] days -- Transfer Training Goal, Activity Type lvx-gm-iqmeb/xgszk-yj-ehq;wua-qv-hiqfr/hygfo-po-xdg;toilet -- Transfer Train Goal, [place] Level supervision required -- Transfer Training Goal, [...] keeping present for 2 days per family. Folder And Notcher noted of frustrations, house keeping sent to room. Patient offered showered twice, refused. at bedside, frustrated that shower not complete, informed that patient had refused several times. requesting to see BUILDING DRAFTER, paged sent to Martha, will come to bedside (middle of consult). not willing to wait, Martha notified that family had gone home. Encouraged to come for morning rounds a t 8am. Diabetes team at bedside - insulin adjustments made. Call cabello in reach. Continue to monitor. PLAN MOVING FORWARD: Ambulate, dressing changes BID, Please change drsg at 4am per Martha BUILDING DRAFTER request. INDIVIDUALIZED FALL PREVENTION INTERVENTIONS: Patient-specific fall [...] levels on the lower side, 60ml of Aguila juice given after a FS of 80. [...] 07/13/17 0502 Interdisciplinary Rounds/Family Conf Participants manager case;dietitian/nutrition services;nursing;occupational therapy;patient;pharmacy;physical therapy;physician Plan of Care [...] Anticipated Discharge Disposition: home with assist Pager: [phone] CLARISSA SEGAL, PT 07/12/2017 Physical Therapy Rehabilitation [...] to sit/sit to supine Bed Mobility Goal, [place] Level supervision required Bed Mobility Goal, Additional Goal adheres to psternal precautions for transfer Goal: Gait Training Goal Stand Alone Therapy Goal Outcome: Ongoing (Interventions Implemented as Appropriate) 07/12/17 1225 Gait Training Goal Gait Training Goal, Date Established 07/12/17 Gait Training Goal, Time to Achieve 2 - 3 days Gait Training Goal, [place] Level supervision required Gait Training Goal, Assist [...] 3 days Transfer Training Goal, Activity Type pwi-jy-dymjj/mggld-ey-wgy;oap-kz-jaioi/oikqp-yo-dly;toilet Transfer Train Goal, [place] Level supervision required Transfer Training Goal, Additional [...] IV site, amio to other piv and DIRECT SUPPORT STAFF at bedside to help assess, IV removed. [...] staff, he stood and marched in place. [place] weak, wanting to sit back down. Remained [...] Health/Prescription Coverage: Primary Insurance: MEDICARE Secondary Insurance: [employer] [place] Prescription Coverage: yes Preferred Pharmacy: [facility] [place] Other: none Primary Care Provider: oLvely Vicente MD [phone] Patient/Caregiver Goals of Treatment:live and get my breath back Potential Needs for Transition of Care: Rehab/SNF: [facility] Home Health: NA DME: TBD Dialysis: na Community Resources: available Transportation: yes Other: none Anticipated Barriers to Discharge/Special Considerations: none Plan: Likely SNF Rehab before home A member of the Care Management team will continue to monitor progress, follow for continuity of care and assist with transition of care planning. ERLIN Weiss Pager: [phone] Consult Note - Katerin Azul RN - [...] and to provide a review of terminal makeup operator diabetes care. Diabetes History: Gregory Hoang has [...] potential to d/c gtt and start CF. longterm diabetes care: Medications - Outpatient treatment regimen recommendations pending based on the hospital course. Monitoring - continue BG tid ac & hs Diet - low fat/low carb diet Exercise - weight-bearing exercise 30 min/day, as tolerated Thank you for allowing us to provide care for your patient W/E coverage, Dr. Jeane Tatum, pager [phone] Katerin Azul APRN Endocrinology Diabetes Management Pager [phone] Plan of Care - Walt Stephanie Wyatt [...] Operative Note Patient Name: Gregory Hoang : [id number] MR#: [id number] Case Date: 07/07/2017 Surgeon: Surgeon(s) and Role: * Yuan Webber MD - Primary * Michael Drake PA - Physician Learning And Development Analyst * Linda Flores PA - Physician Learning And Development Analyst Preoperative diagnosis: 3VD Postoperative diagnosis: CAD, [...] Operative Note Patient Name: Gregory Hoang : [id number] MR#: [id number] Case Date: 07/07/2017 Surgeon: Surgeon(s) and Role: * Yuan Webber MD - Primary * Michael Drake PA - Physician Learning And Development Analyst * Linda Flores PA - Physician Learning And Development Analyst Preoperative diagnosis: 3VD Postoperative diagnosis: CAD, [...] code status: Full Code Katty Hahn, MS3 [facility] Cardiology S1 (Pager [phone]) Plan of Care - Emelia Ibarra RN [...] SETUP performed by Manny Mcknight MD at [facility] MAIN OR ??? PRO COLONOSCOPY, REMV LESN, SNARE 01/16/2014 COLONOSCOPY, POLYPECTOMY, REMOVAL LESION BY SNARE performed by Nohemi Jaimes MD at [facility] ENDOSCOPY ??? PRO THYROIDECTOMY 03/28/2013 THYROIDECTOMY, TOTAL OR COMPLETE performed by Manny Mcknight MD at [facility] MAIN OR Social History: Social [...] with other involved physicians Yuan Webber MD [phone] Med Student Progress Note - Katty Hahn [...] or BiPAP - s/p lasix in the cardiac cath lab manager, was net -1.5L - s/p plavix [...] FULL - Dispo: [facility] Katty Hahn, [facility] Cardiology S1 (Pager [phone]) Plan of Care - Stephanie Godoy RN - 07/06/2017 5:00 AM EST Problem: Patient Care Overview Goal: Plan of Care Review 07/06/17 0536 Coping/Psychosocial Plan Of Care Reviewed With patient;family [...] in urinal without difficulty. Lasix given in cardiac cath lab manager, 1.4 L out at this time. [...] Dolan MD [facility] [address] [place], [place] [address] (Wo rk) 05/28/2022 Laboratory Appointment Lab 05/28/2022 Office Visit Cardiology Zulma Dolan MD [facility] [place] [address] Liz Poole PA [facility] [place] [address] 06/10/2022 Office Visit Dermatology Larua Scherer MD [facility] [address] [place], [place] [address] (Wo rk) Scheduled Orders Name [...] procedure are i n the results section. STUDENT SPECIALIST SCAN 07/15/2017 12:00 Res ults for [...] Yes 07/07/2017 1:35 [facility] EST 7.93) @CABG, [...] this ([facility] PM EST [...] this ([facility]) PM EST [...] 2017 EXAMINATION: XR CHEST PA AND LATERAL ([place] NERIC) CLINICAL HISTORY: CABG x 3 TECHNIQUE: [...] Teague APRN IMG DX ORDERABLES SCAN DOC: STUDENT SPECIALIST (07/15/2017 12:00 AM EST) Narrative 07/15/2017 [...] 186 65 - 199 [place] mg/dL [facility] LABORATORY [...] Address City/State/ZIP Code Phon e Number [address] POCT Glucose (07/14/2017 7:52 AM EST) athologist Signature POC Glucose 126 65 - 199 [facility] mg/dL [facility] LABORATORY [...] Address City/State/ZIP Code Phon e Number [address] (ABNORMAL) Prothrombin Time (07/14/2017 4:46 AM EST) athologist Signature PT 26.4 (H) 11.8 - 14.0 [facility] LABORATORY INR 2.4 (H) 0.9 [...] Address City/State/ZIP Code Phon e Number [address] Potassium (07/14/2017 4:46 AM EST) athologist Signature Potassium 4.3 3.5 - 5.0 [facility] mmol/L [facility] LAB[facility]ORY Comment: Please note: ??Patients with [...] Address City/State/ZIP Code Phon e Number [address] POCT Glucose (07/14/2017 4:34 AM EST) athologist Signature POC Glucose 115 65 - 199 [facility] mg/dL [facility] LABORATORY [...] - [facility]/ZIP Code Phon e Number [address] POCT Glucose (07/13/2017 11:33 PM EST) athologist Signature POC Glucose 132 65 - 199 [facility] mg/dL [facility] LABORATORY [...] - [facility]/ZIP Code Phon e Number [address] POCT Glucose (07/13/2017 9:25 PM EST) athologist Signature POC Glucose 121 65 - 199 [place] mg/dL [facility] LABORATORY [...] Address City/State/ZIP Code Phon e Number [address] POCT Glucose (07/13/2017 4:55 PM EST) P athologist Signature POC Glucose 79 65 - 199 [place] mg/dL [facility] LABORATORY [...] Address City/State/ZIP Code Phon e Number [address] POCT Glucose (07/13/2017 11:16 AM EST) athologist Signature POC Glucose 163 65 - 199 [place] mg/dL [facility] LABORATORY [...] Address City/State/ZIP Code Phon e Number [address] POCT Glucose (07/13/2017 8:07 [...] - [facility]/[place] [address] (ABNORMAL) Prothrombin Time (07/13/2017 4:26 AM EST) P athologist Signature PT 20.8 (H) 11.8 - 14.0 [facility] LABORATORY INR 1.8 (H) 0.9 [...] Wilson APRN HEMATOLOGY ORDERABLES Performing Organization Address City/[facility]/[place] [address] (ABNORMAL) Basic Metabolic Panel (non-fasting) (07/13/2017 4:26 AM EST) P athologist Signature Glucose Lvl 95 65 - 199 [facility] mg/dL [facility] LABORATORY [...] or in patients with acute kidney failure. [email or web address] Specimen Anatomical Collection Method Collection Time Receive d Time (Source) Location / / Volume Laterality Blood specimen 07/13/2017 4:26 AM 017 4:46 (specimen) EST AM EST Resulting Agency Comment Spec In Lab Makayla Wilson APRN CHEMISTRY ORDERABLES Performing Organization Address City/[facility]/ZIP Code Phon e Number [address] POCT Glucose (07/13/2017 3:52 AM EST) P athologist Signature POC Glucose 93 65 - 199 [facility] mg/dL [facility] LABORATORY [...] Address City/State/ZIP Code Phon e Number [address] POCT Glucose (07/13/2017 12:21 AM EST) athologist Signature POC Glucose 80 65 - 199 [place] mg/dL [facility] LABORATORY [...] Address City/State/ZIP Code Phon e Number [address] POCT Glucose (07/12/2017 8:22 PM EST) athologist Signature POC Glucose 119 65 - 199 [facility] SU mg/dL [facility] LABORATORY [...] Address City/State/ZIP Code Phon e Number [address] POCT Glucose (07/12/2017 4:02 PM EST) athologist Signature POC Glucose 114 65 - 199 [place] mg/dL [facility] LABORATORY [...] Organization Address City/State/[place] [address] POCT Glucose (07/12/2017 11:28 AM EST) athologist Signature POC Glucose 164 65 - 199 [facility] mg/dL [facility] LABORATORY [...] Address City/State/ZIP Code Phon e Number [address] POCT Glucose (07/12/2017 7:34 AM EST) athologist Signature POC Glucose 109 65 - 199 [facility] mg/dL [facility] LABORATORY [...] Organization Address City/State/[place] [address] (ABNORMAL) Basic Metabolic Panel (non-fasting) (07/12/2017 4:11 AM EST) athologist Signature Glucose Lvl 92 65 - 199 [facility] mg/dL [facility] LAB[facility]ORY [...] or in patients with acute kidney failure. [email or web address] Specimen Anatomical Collection Method Collection Time Receive d Time (Source) Location / / Volume Laterality Blood specimen 07/12/2017 4:11 AM 017 8:57 (specimen) EST AM EST Resulting Agency Comment Spec In Lab Makayla Katie QUINONES CHEMISTRY ORDERABLES Performing Organization Address City/State/[place] [address] (ABNORMAL) Prothrombin Time (07/12/2017 4:11 AM EST) P athologist Signature PT 15.4 (H) 11.8 - 14.0 [facility] LABORATORY INR 1.2 (H) 0.9 [...] Wilson APRN HEMATOLOGY ORDERABLES Performing Organization Address City/[facility]/[place] [address] Potassium (07/12/2017 4:11 AM EST) athologist Signature Potassium 3.8 3.5 - 5.0 [facility] mmol/L [facility] Comment: Please note: ??Patients with [...] Wilson APRN CHEMISTRY ORDERABLES Performing Organization Address City/[facility]/[place] [address] POCT Glucose (07/12/2017 4:10 AM EST) athologist Signature POC Glucose 90 65 - 199 [facility] LAB[facility]ORY [...] - [facility]/[place] [address] POCT Glucose (07/11/2017 11:57 PM EST) athologist Signature POC Glucose 98 65 - 199 [facility] [...] Organization Address City/State/[place] [address] POCT Glucose (07/11/2017 8:32 PM EST) P athologist Signature POC Glucose 146 65 - 199 [facility] mg/dL [facility] LABORATORY [...] Organization Address City/State/[place] [address] XR Chest PA & [...] e xtubated, left chest tube removed, and Hitchcock-Suzi catheter removed since the study. Atelectasis at [...] e xtubated, left chest tube removed, and Hitchcock-Suzi catheter removed since the study. Atelectasis at [...] POC Glucose 223 (H) 65 - 199 [facility] mg/dL [facility] LABOR[facility]ORY [...] - [facility]/ZIP Code Phon e Number [address] POCT Glucose (07/11/2017 11:55 AM EST) athologist Signature POC Glucose 176 65 - 199 [facility] SU mg/dL [facility] LABORATORY [...] - [facility]/[place] [address] POCT Glucose (07/11/2017 7:53 AM EST) athologist Signature POC Glucose 189 65 - 199 [facility] LAB[facility]ORY [...] - [facility]/ZIP Code Phon e Number [address] POCT Glucose (07/11/2017 4:22 AM EST) athologist Signature POC Glucose 151 65 - 199 [facility] LABOR[facility]ORY [...] - [facility]/ZIP Code Phon e Number [address] Potassium (07/11/2017 2:20 AM EST) athologist Signature Potassium 4.5 3.5 - 5.0 [facility] mmol/L [facility] Comment: Please note: ??Patients with [...] Webber MD CHEMISTRY ORDERABLES Performing Organization Address City/[facility]/ZIP Code Phon e Number [address] POCT Glucose (07/11/2017 12:17 AM EST) athologist Signature POC Glucose 162 65 - 199 [place] mg/dL [facility] LABORATORY [...] Organization Address [facility]/ZIP Code Phon e Number [address] POCT Glucose (07/10/2017 8:47 PM EST) athologist Signature POC Glucose 191 65 - 199 [place] mg/dL [facility] LABORATORY [...] - [facility]/ZIP Code [place] [address] POCT Glucose (07/10/2017 4:06 PM EST) athologist Signature POC Glucose 131 65 - 199 [place] mg/dL [facility] LABORATORY [...] Address City/State/ZIP Code Phon e Number [address] POCT Glucose (07/10/2017 3:08 PM EST) athologist Signature POC Glucose 151 65 - 199 [facility] mg/dL [facility] LABORATORY [...] Address City/State/ZIP Code Phon e Number [address] POCT Glucose (07/10/2017 2:25 PM EST) athologist Signature POC Glucose 146 65 - 199 [facility] mg/dL [facility] LABOR[facility]ORY [...] Address City/State/ZIP Code Phon e Number [address] POCT Glucose (07/10/2017 1:23 PM EST) athologist Signature POC Glucose 166 65 - 199 [place] mg/dL [facility] LABORATORY [...] Address City/State/ZIP Code Phon e Number [address] POCT Glucose (07/10/2017 11:52 AM EST) P athologist Signature POC Glucose 157 65 - 199 [place] mg/dL [facility] LABORATORY [...] Address City/State/ZIP Code Phon e Number [address] POCT Glucose (07/10/2017 11:01 AM EST) athologist Signature POC Glucose 158 65 - 199 [facility] SU mg/dL [facility] LABORATORY [...] Address City/State/ZIP Code Phon e Number [address] POCT Glucose (07/10/2017 9:54 AM EST) athologist Signature POC Glucose 160 65 - 199 [place] mg/dL [facility] LABORATORY [...] Organization Address City/State/[place] [address] POCT Glucose (07/10/2017 8:58 AM EST) athologist Signature POC Glucose 183 65 - 199 [place] mg/dL [facility] LABORATORY [...] Address City/State/ZIP Code Phon e Number [address] POCT Glucose (07/10/2017 8:01 AM EST) athologist Signature POC Glucose 173 65 - 199 [place] mg/dL [facility] LABORATORY [...] Address City/State/ZIP Code Phon e Number [address] POCT Glucose (07/10/2017 7:05 AM EST) athologist Signature POC Glucose 166 65 - 199 [place] mg/dL [facility] LABORATORY [...] Address City/State/ZIP Code Phon e Number [address] POCT Glucose (07/10/2017 6:00 AM EST) P athologist Signature POC Glucose 162 65 - 199 [facility] mg/dL [facility] LABORATORY [...] Organization Address City/State/[place] [address] (ABNORMAL) Differential, Automated (07/10/2017 4:28 AM EST) Patholo gist Method Time Signature Neutrophils % 87.9 % [facility] LABORATORY Neutr Abs (ANC) 10.70 (H) 1.70 - [facility] 6.10 [facility] x10(3)/[facility] LABORATORY Lymphocytes % 3.9 % [facility] LABORATORY Lymphocytes Abs 0.5 (L) 0.9 - 3.2 [facility] x10(3)/[facility] LABORATORY Monocytes % 7.0 % [facility] LABORATORY Monocyte Abs 0.8 0.3 - 0.9 [facility] x10(3)/[facility] LABORATORY Eosinophils % 0.3 % [facility] LABORATORY Eosinophils Abs 0.0 0.0 - 0.4 [facility] x10(3)/[facility] LABORATORY Basophils % 0.2 % [facility] LABORATORY Basophils Abs 0.0 0.0 - 0.1 [facility] x10(3)/[facility] LABORATORY Immature Gran % [...] 0.08 (H) 0.00 - 0.04 x10(3)/[facility] LABORATORY Specimen Anatomical Collection Method Collection Time Receive d Time (Source) Location / / Volume Laterality Blood specimen 07/10/2017 4:28 AM 017 4:36 (specimen) EST AM EST Resulting Agency Comment Spec In Lab Yuan Webber MD HEMATOLOGY ORDERABLES Performing Organization Address City/State/[place] [address] (ABNORMAL) Hemogram (07/10/2017 4:28 AM EST) Analysis Performed At Patho logist Time Signature WBC 12.2 (H) 4.0 - 9.5 [facility] x10(3)/[facility] LABORATORY RBC 3.31 (L) 4.58 - [facility] 5.54 [facility] x10(6)/[facility] LABORATORY Hemoglobin 9.8 (L) 13.7 - [place] 16.5 gm/dL [facility] LAB[facility]ORY Hematocrit 30.0 (L) 40.5 - [facility] 48.5 % [facility] MCV 90.6 82.9 - [facility] 93.1 [facility] LABORATORY MCH 29.6 27.5 - [facility] 32.[address] [facility] LABORATORY MCHC 32.7 32.0 - [facility] 35.7 gm/dL [facility] Platelets 135 (L) 145 - 357 [facility] x10(3)/[facility] LABORATORY RDWSD 50.8 (H) 36.0 - [facility] 45.0 [facility] LABORATORY RDWCV 15.4 (H) 11.4 - [facility] 13.8 % [facility] LABORATORY MPV 10.0 7.6 - 12.9 [facility] LABORATORY nRBC % Auto 0.0 % [facility] LABORATORY nRBC Abs Auto 0.000 0.000 - [facility] 0.000 [facility] x10(3)/[facility] LABORATORY Specimen Anatomical Collection Method Collection Time Receive d Time (Source) Location / / Volume Laterality Blood specimen 07/10/2017 4:28 AM 017 4:36 (specimen) EST AM EST Resulting Agency Comment Spec In Lab Yuan Webber MD HEMATOLOGY ORDERABLES Performing Organization Address City/[facility]/[place] [address] (ABNORMAL) Basic Metabolic Panel (non-fasting) (07/10/2017 4:28 AM EST) P athologist Signature Glucose Lvl 178 65 - 199 [facility] mg/dL [facility] LABORATORY [...] or in patients with acute kidney failure. [email or web address] [email or web address] Specimen Anatomical Collection Method Collection Time Receive d Time (Source) Location / / Volume Laterality Blood specimen 07/10/2017 4:28 AM 017 4:36 (specimen) EST AM EST Resulting Agency Comment Spec In Lab Yuan Webber MD CHEMISTRY ORDERABLES Performing Organization Address City/[facility]/[place] [address] POCT Glucose (07/10/2017 4:26 AM EST) P athologist Signature POC Glucose 176 65 - 199 [facility] mg/dL [facility] LABORATORY [...] Address City/State/ZIP Code [place] [address] (ABNORMAL) POCT Glucose (07/10/2017 3:06 AM EST) athologist Signature POC Glucose 204 (H) 65 - 199 [facility] mg/dL [facility] LABORATORY [...] City/State/ZIP Code [place] [address] (ABNORMAL) POCT Glucose (07/10/2017 2:10 AM EST) P athologist Signature POC Glucose 203 (H) 65 - 199 [place] mg/dL [facility] LABORATORY [...] Address City/State/ZIP Code Phon e Number [address] POCT Glucose (07/10/2017 1:09 AM EST) P athologist Signature POC Glucose 196 65 - 199 [facility] SU mg/dL [facility] LABORATORY [...] Address City/State/ZIP Code Phon e Number [address] POCT Glucose (07/10/2017 12:10 AM EST) athologist Signature POC Glucose 173 65 - 199 [facility] mg/dL [facility] LABORATORY [...] Address City/State/ZIP Code Phon e Number [address] POCT Glucose (07/09/2017 11:01 PM EST) athologist Signature POC Glucose 140 65 - 199 [place] mg/dL [facility] LABORATORY [...] Address City/State/ZIP Code Phon e Number [address] POCT Glucose (07/09/2017 10:05 PM EST) athologist Signature POC Glucose 144 65 - 199 [place] mg/dL [facility] LABORATORY [...] Address City/State/ZIP Code Phon e Number [address] POCT Glucose (07/09/2017 9:31 PM EST) athologist Signature POC Glucose 121 65 - 199 [facility] mg/dL [facility] LABORATORY [...] Address City/State/ZIP Code Phon e Number [address] POCT Glucose (07/09/2017 9:03 PM EST) athologist Signature POC Glucose 98 65 - 199 [place] mg/dL [facility] LABORATORY [...] Organization Address City/State/[place] [address] POCT Glucose (07/09/2017 8:09 PM EST) athologist Signature POC Glucose 117 65 - 199 [place] mg/dL [facility] LABORATORY [...] Address City/State/ZIP Code Phon e Number [address] POCT Glucose (07/09/2017 5:40 PM EST) athologist Signature POC Glucose 155 65 - 199 [place] mg/dL [facility] LABORATORY [...] Address City/State/ZIP Code Phon e Number [address] POCT Glucose (07/09/2017 4:24 PM EST) athologist Signature POC Glucose 164 65 - 199 [place] mg/dL [facility] LABORATORY [...] Address City/State/ZIP Code Phon e Number [address] POCT Glucose (07/09/2017 3:19 PM EST) athologist Signature POC Glucose 166 65 - 199 [place] mg/dL [facility] LABORATORY [...] Address City/State/ZIP Code Phon e Number [address] POCT Glucose (07/09/2017 2:26 PM EST) athologist Signature POC Glucose 179 65 - 199 [facility] mg/dL [facility] LABORATORY [...] Organization Address City/State/[place] [address] (ABNORMAL) POCT Glucose (07/09/2017 1:29 PM EST) athologist Signature POC Glucose 210 (H) 65 - 199 [facility] mg/dL [facility] LABORATORY [...] Organization Address City/State/[place] [address] POCT Glucose (07/09/2017 12:20 PM EST) P athologist Signature POC Glucose 172 65 - 199 [place] [facility] mg/dL [facility] LABORATORY [...] Address City/State/ZIP Code Phon e Number [address] POCT Glucose (07/09/2017 11:24 AM EST) athologist Signature POC Glucose 156 65 - 199 [place] mg/dL [facility] LABORATORY [...] Address City/State/ZIP Code Phon e Number [address] POCT Glucose (07/09/2017 11:11 AM EST) athologist Signature POC Glucose 172 65 - 199 [place] [facility] mg/dL [facility] LABORATORY [...] Address City/State/ZIP Code Phon e Number [address] POCT Glucose (07/09/2017 10:08 AM EST) athologist Signature POC Glucose 176 65 - 199 [place] [facility] mg/dL [facility] LABORATORY [...] Organization Address City/State/[place] [address] POCT Glucose (07/09/2017 8:02 AM EST) P athologist Signature POC Glucose 178 65 - 199 [facility] mg/dL [facility] LABORATORY [...] Organization Address City/State/[place] [address] (ABNORMAL) BLOOD GAS 2 ARTERIAL (07/09/2017 5:37 AM EST) Analysis Performed At Patho logist Time Signature pH Art 7.36 7.35 - [facility] 7.[address] [facility] LABORATORY pCO2 Art 38 35 - 45 [facility] mmHg [facility] LABORATORY pO2 Art 79 (L) 85 - 104 [facility] mmHg [facility] LABORATORY HCO3 Art 20.9 20.0 - [facility] 26.0 [facility] mmol/L [facility] LABORATORY BE Art -4.6 (L) -3.0 - 3.0 [facility] mmol/L [facility] LABORATORY Hgb Blood Gas 10.5 (L) 13.7 - [facility] 16.5 gm/dL [facility] LABORATORY O2HB Art 93.8 (L) 94.0 - [facility] 97.0 % [facility] COHB Art 0.3 % [facility] PF Ratio Art 198 [facility] LABORATORY Specimen Anatomical Collection Method Collection Time Receive d Time (Source) Location / / Volume Laterality Blood specimen 07/09/2017 5:37 AM 017 5:37 (specimen) EST AM EST Yuan Webber MD CHEMISTRY ORDERABLES Performing Organization Address City/State/[place] [address] POCT Glucose (07/09/2017 3:27 AM EST) P athologist Signature POC Glucose 192 65 - 199 [facility] mg/dL [facility] LABORATORY [...] Organization Address City/State/[place] [address] (ABNORMAL) Basic Metabolic Panel (non-fasting) (07/09/2017 2:30 AM EST) P athologist Signature Glucose Lvl 179 65 - 199 [facility] mg/dL [facility] LABORATORY [...] or in patients with acute kidney failure. [email or web address]/DHnkdep [email or web address]/DHMCnkf Specimen Anatomical Collection Method Collection Time Receive d Time (Source) Location / / Volume Laterality Blood specimen Venous Draw / 07/09/2017 2:30 AM 2016 2:42 (specimen) Unknown EST AM EST Resulting Agency Comment Spec In Lab Yuan Webber MD CHEMISTRY ORDERABLES Performing Organization Address City/State/[place] [address] (ABNORMAL) Potassium (07/09/2017 2:30 AM EST) P athologist Signature Potassium 5.1 (H) 3.5 - 5.0 [facility] mmol/L [facility] LAB[facility] Comment: Please note: ??Patients with [...] Webber MD CHEMISTRY ORDERABLES Performing Organization Address City/[facility]/[place] [address] (ABNORMAL) Hemogram (07/09/2017 2:30 AM EST) Analysis Performed At Patho logist Time Signature WBC 12.5 (H) 4.0 - 9.5 [place] x10(3)/[facility] LABORATORY RBC 3.38 (L) 4.58 - [place] [facility] 5.54 [facility] x10(6)/[facility] LABORATORY Hemoglobin 10.1 (L) 13.7 - [facility] 16.5 gm/dL [facility] Hematocrit 30.3 (L) 40.5 - [facility] 48.5 % [facility] MCV 89.6 82.9 - [facility] 93.1 [facility] LABORATORY MCH 29.9 27.5 - [facility] 32.[address] [facility] MCHC 33.3 32.0 - [facility] 35.7 gm/dL [facility] Platelets 127 (L) 145 - 357 [facility] x10(3)/[facility] LABORATORY RDWSD 49.3 (H) 36.0 - [facility] 45.0 [facility] LABORATORY RDWCV 15.2 (H) 11.4 - [facility] 13.8 % [facility] MPV 9.9 7.6 - 12.9 [facility] LABORATORY nRBC % Auto 0.0 % [facility] nRBC Abs Auto 0.000 0.000 - [place] [facility] 0.000 [facility] x10(3)/[facility] LAB[facility]ATORY Specimen Anatomical Collection Method Collection Time Receive d Time (Source) Location / / Volume Laterality Blood specimen 07/09/2017 2:30 AM 017 2:41 (specimen) EST AM EST Resulting Agency Comment Spec In Lab Yuan Webber MD HEMATOLOGY ORDERABLES Performing Organization Address City/State/ZIP Code Phon e Number [address] POCT Glucose (07/09/2017 2:10 AM EST) athologist Signature POC Glucose 169 65 - 199 [facility] [...] Address City/State/ZIP Code Phon e Number [address] POCT Glucose (07/09/2017 1:01 AM EST) athologist Signature POC Glucose 173 65 - 199 [facility] [...] Address City/State/ZIP Code Phon e Number [address] Blood culture (07/09/2017 12:40 AM EST) [facility] Method Time Signature Blood Culture No growth [place] [facility] at [address] [facility] Specimen Anatomical Collection Method Collection Time Receive d Time (Source) Location / / Volume Laterality Blood specimen STRUCTURE OF RIGHT 07/09/2017 12:40 3:58 (specimen) UPPER LIMB / AM EST AM EST Unknown Resulting Agency Comment Spec In Lab Yuan Webber MD MICROBIOLOGY - BLOOD ORDERAB LES Performing Organization Address City/[facility]/ZIP Code Phon e Number [address] Blood culture (07/09/2017 12:30 AM EST) [facility] Method Time Signature Blood Culture No growth [place] [facility] at [address] [facility] Specimen Anatomical Collection Method Collection Time Receive d Time (Source) Location / / Volume Laterality Blood specimen STRUCTURE OF LEFT 07/09/2017 12:30 06/25 3:59 (specimen) UPPER LIMB / AM EST AM EST Unknown Resulting Agency Comment Spec In Lab Yuan Webber MD MICROBIOLOGY - BLOOD ORDERAB LES Performing Organization Address City/[facility]/ZIP Code Phon e Number [address] (ABNORMAL) Urinalysis Microscopic Exam (07/09/2017 12:05 AM EST) Analysis Performed At Patho logist Time Signature RBC UA 32 (H) 0 - 3 /HPF [facility] WBC UA 5 (H) 0 - 3 /HPF [facility] Squam Epith UA <1 <=4 /HPF [facility] Hyaline Cast 17 (H) 0 - 2 /LPF [facility] Gran Cast UA 1 (H) <=0 /LPF [facility] Uric Ac Bianca Rare (A) None /HPF [facility] Specimen (Source) Anatomical Collection Method Collection Time Re ceived Time Location / / Volume Laterality Urine specimen 07/09/2017 12:05 7 obtained via AM EST 12:39 AM EST indwelling urinary catheter (specimen) Resulting Agency Comment Spec In Lab Yuan Webber MD URINE ORDERABLES Performing Organization Address City/State/ZIP Code Phon e Number [address] (ABNORMAL) Urinalysis with reflex Culture (07/09/2017 12:05 AM EST) Patholo gist Method Time Signature Glucose UA Negative Negative [facility] Protein UA 30 (A) Negative [facility] Bilirubin UA Negative Negative [facility] mg/dL [facility] Comment: Clinical correlation required for [...] [facility]ICAL [facility] Nitrite UA Negative Negative [facility] Leukocytes UA Negative Negative [facility] LABORATORY Appearance UA Hazy (A) Clear [facility] Spec [place] UA 1.025 1.002 - 1.030 [facility] Color UA Yellow Yellow [facility] Culture Reflexed No [facility] Specimen (Source) Anatomical Collection Method Collection Time Re ceived Time Location / / Volume Laterality Urine specimen 07/09/2017 12:05 7 obtained via AM EST 12:39 AM EST indwelling urinary catheter (specimen) Resulting Agency Comment Spec In Lab Yuan Webber MD URINE ORDERABLES Performing Organization Address City/State/ZIP Code Phon e Number [place] [id number] [facility] [address] POCT Glucose (07/08/2017 11:01 PM EST) P athologist Signature POC Glucose 191 65 - 199 [facility] mg/dL [facility] [...] Organization Address City/State/[place] [address] POCT Glucose (07/08/2017 10:04 PM EST) P athologist Signature POC Glucose 198 65 - 199 [facility] [...] Organization Address City/State/[place] [address] Prepare Albumin 5% in [...] Address City/State/ZIP Code Phon e Number [address] POCT Glucose (07/08/2017 8:28 PM EST) P athologist Signature POC Glucose 195 65 - 199 [facility] [...] - [facility]/[place] [address] (ABNORMAL) POCT Glucose (07/08/2017 7:13 PM EST) P athologist Signature POC Glucose 220 (H) 65 - 199 [facility] mg/dL [facility] [...] - [facility]/[place] [address] POCT Glucose (07/08/2017 5:04 PM EST) P athologist Signature POC Glucose 147 65 - 199 [facility] mg/dL [facility] [...] Organization Address City/State/[place] [address] (ABNORMAL) BLOOD GAS 2 ARTERIAL (07/08/2017 4:13 PM EST) Analysis Performed At Patho logist Time Signature pH Art 7.38 7.35 - [facility] 7.[address] [facility] pCO2 Art 36 35 - 45 [facility] LABORATORY pO2 Art 91 85 - 104 [facility] LABORATORY HCO3 Art 20.9 20.0 - [facility] 26.0 [facility] mmol/L [facility] LABORATORY BE Art -4.2 (L) -3.0 - 3.0 [facility] mmol/L [facility] Hgb Blood Gas 11.7 (L) 13.7 - [facility] 16.5 gm/dL [facility] O2HB Art 95.1 94.0 - [facility] 97.0 % [facility] COHB Art 0.6 % [facility] [...] [facility] PF Ratio Art 228 [facility] Specimen Anatomical Collection Method Collection Time Receive d Time (Source) Location / / Volume Laterality Blood specimen 07/08/2017 4:13 PM 017 4:13 (specimen) EST PM EST Yuan Webber MD CHEMISTRY ORDERABLES Performing Organization Address City/State/[place] [address] POCT Glucose (07/08/2017 4:01 PM EST) athologist Signature POC Glucose 148 65 - 199 [facility] mg/dL [facility] [...] Address City/State/ZIP Code Phon e Number [address] POCT Glucose (07/08/2017 3:21 PM EST) athologist Signature POC Glucose 118 65 - 199 [facility] mg/dL [facility] [...] - [facility]/ZIP Code Phon e Number [address] POCT Glucose (07/08/2017 2:01 PM EST) athologist Signature POC Glucose 129 65 - 199 [place] mg/dL [facility] [...] Organization Address City/State/[place] [address] POCT Glucose (07/08/2017 11:53 AM EST) athologist Signature POC Glucose 156 65 - 199 [facility] SU mg/dL [facility] [...] Address City/State/ZIP Code Phon e Number [address] POCT Glucose (07/08/2017 11:04 AM EST) athologist Signature POC Glucose 181 65 - 199 [facility] mg/dL [facility] [...] - [facility]/[place] [address] (ABNORMAL) POCT Glucose (07/08/2017 9:24 AM EST) athologist Signature POC Glucose 203 (H) 65 - 199 [facility] mg/dL [facility] [...] Address City/State/ZIP Code Phon e Number [address] APTT (07/08/2017 8:40 AM [...] Organization Address City/State/[place] [address] (ABNORMAL) Prothrombin Time (07/08/2017 8:40 AM EST) athologist Signature PT 15.6 (H) 11.8 - 14.0 [facility] [...] Organization Address City/State/[place] [address] (ABNORMAL) POCT Glucose (07/08/2017 7:38 AM EST) athologist Signature POC Glucose 232 (H) 65 - 199 [facility] mg/dL [facility] [...] - [facility]/[place] [address] (ABNORMAL) POCT Glucose (07/08/2017 7:07 AM EST) P athologist Signature POC Glucose 234 (H) 65 - 199 [facility] mg/dL [facility] [...] - [facility]/[place] [address] (ABNORMAL) POCT Glucose (07/08/2017 6:04 AM EST) P athologist Signature POC Glucose 225 (H) 65 - 199 [facility] mg/dL [facility] [...] Organization Address City/State/[place] [address] (ABNORMAL) POCT Glucose (07/08/2017 5:31 AM EST) P athologist Signature POC Glucose 216 (H) 65 - 199 [facility] mg/dL [facility] [...] Organization Address City/State/[place] [address] (ABNORMAL) POCT Glucose (07/08/2017 4:52 AM EST) P athologist Signature POC Glucose 257 (H) 65 - 199 [facility] mg/dL [facility] [...] - [facility]/[place] [address] (ABNORMAL) BLOOD GAS 2 ARTERIAL (07/08/2017 4:04 AM EST) Analysis Performed At Patho logist Time Signature pH Art 7.30 (L) 7.35 - [facility] 7.[address] [facility] pCO2 Art 41 35 - 45 [facility] mmHg [facility] pO2 Art 83 (L) 85 - 104 [facility] LABORATORY HCO3 Art 19.6 (L) 20.0 - [facility] 26.0 [facility] mmol/L HOSPITAL LABORATORY BE Art -6.8 (L) -3.0 - 3.0 [facility] mmol/L [facility] Hgb Blood Gas 12.2 (L) 13.7 - [facility] 16.5 gm/dL [facility] O2HB Art 93.5 (L) 94.0 - [facility] 97.0 % [facility] COHB Art 0.4 % [facility] Comment: Noted by instrument maker apprentice. FIO2 Art 40 % [facility] PF Ratio Art 208 [facility] Specimen Anatomical Collection Method Collection Time Receive d Time (Source) Location / / Volume Laterality Blood specimen 07/08/2017 4:04 AM 017 4:04 (specimen) EST AM EST Daphne Shahid MD CHEMISTRY ORDERABLES Performing Organization Address City/[facility]/[place] [address] Scan, Peripheral Blood (07/08/2017 [...] Webber MD HEMATOLOGY ORDERABLES Performing Organization Address City/[facility]/[place] [address] (ABNORMAL) Differential, Automated (07/08/2017 4:00 AM EST) [facility] Method Time Signature Neutrophils % 85.4 % [facility] Neutr Abs (ANC) 16.07 (H) 1.70 - [facility] 6.10 [facility] x10(3)/[facility] LABORATORY Lymphocytes % 3.5 % [facility] Lymphocytes Abs 0.6 (L) 0.9 - 3.2 [facility] x10(3)/[facility] LABORATORY Monocytes % 10.4 % [facility] Monocyte Abs 2.0 (H) 0.3 - 0.9 [facility] x10(3)/[facility] LABORATORY Eosinophils % 0.0 % [facility] Eosinophils Abs 0.0 0.0 - 0.4 [facility] x10(3)/[facility] LABORATORY Basophils % 0.1 % [facility] Basophils Abs 0.0 0.0 - 0.1 [facility] x10(3)/[facility] LABORATORY Immature Gran % [...] 0.12 (H) 0.00 - 0.04 x10(3)/[facility] LABORATORY Specimen Anatomical Collection Method Collection Time Receive d Time (Source) Location / / Volume Laterality Blood specimen 07/08/2017 4:00 AM 017 4:09 (specimen) EST AM EST Resulting Agency Comment Spec In Lab Yuan Webber MD HEMATOLOGY ORDERABLES Performing Organization Address City/State/[place] [address] (ABNORMAL) Hemogram (07/08/2017 4:00 AM EST) Analysis Performed At Patho logist Time Signature WBC 18.8 (H) 4.0 - 9.5 [facility] x[facility](3[facility] LABORATORY RBC 4.00 (L) 4.58 - [facility] 5.54 [facility] x10(6)/[facility] LABORATORY Hemoglobin 11.9 (L) 13.7 - [facility] 16.5 gm/dL [facility] Hematocrit 35.9 (L) 40.5 - [facility] 48.5 % [facility] MCV 89.8 82.9 - [facility] 93.1 [facility] LABORATORY MCH 29.8 27.5 - [place] [facility] 32.[address] [facility] MCHC 33.1 32.0 - [facility] 35.7 gm/dL [facility] Platelets 232 145 - 357 [facility] x10(3)/[facility] LABORATORY RDWSD 47.6 (H) 36.0 - [place] 45.0 [facility] LABORATORY RDWCV 14.5 (H) 11.4 - [place] [facility] 13.8 % [facility] MPV 9.5 7.6 - 12.9 [facility] nRBC % Auto 0.0 % [facility] nRBC Abs Auto 0.000 0.000 - [place] [facility] 0.000 [facility] x10(3)/[facility] LABORATORY Specimen Anatomical Collection Method Collection Time Receive d Time (Source) Location / / Volume Laterality Blood specimen 07/08/2017 4:00 AM 017 4:09 (specimen) EST AM EST Resulting Agency Comment Spec In Lab Yuan Webber MD HEMATOLOGY ORDERABLES Performing Organization Address City/State/[place] [address] (ABNORMAL) Electrolytes panel (07/08/2017 4:00 AM EST) P athologist Signature Sodium 139 135 - 145 [facility] mmol/L [facility] Potassium 4.7 3.5 - 5.0 [facility]/L [facility] Comment: result [id number] Please note: [...] Organization Address City/State/[place] [address] (ABNORMAL) Cardiac Enzymes (LEB/CGP) (07/08/2017 4:00 AM EST) P athologist Signature Troponin-T 1.88 (H) 0.00 - [facility] 0.00 ng/mL [facility] Comment: The 99th percentile for [...] additional sample may be indicated. Reference: Third [place] Definition of Myocardial Infarction. Journal of the [...] Webber MD CHEMISTRY ORDERABLES Performing Organization Address City/[facility]/ZIP Code Phon e Number [address] (ABNORMAL) Glucose, fasting (07/08/2017 4:00 AM EST) athologist Signature Glucose 287 (H) 65 - 99 [facility] Fasting mg/dL [facility] Comment: ?Fasting* Glucose Interpretive C [...] Webber MD CHEMISTRY ORDERABLES Performing Organization Address City/[facility]/ZIP [facility] [place] [address] (ABNORMAL) Creatinine (07/08/2017 4:00 AM EST) Analysis Performed At Patho logist Time Signature Creatinine 1.55 (H) 0.80 - [facility] 1.50 mg/dL [facility] Estimated GFR 44 (L) >=60 [facility] Comment: The reported eGFR should be multiplied b y 1.2 for patients. The MDRD is not an appropriate measure o f renal function for patients with body mass extremes or in patients with acute kidney failure. http://CYBRA/DHnkdep http://CYBRA/DHMCnkf Specimen Anatomical Collection Method Collection Time Receive d Time (Source) Location / / Volume Laterality Blood specimen 07/08/2017 4:00 AM 017 4:09 (specimen) EST AM EST Resulting Agency Comment Spec In Lab Yuan Webber MD CHEMISTRY ORDERABLES Performing Organization Address City/[facility] Phon e Number [address] BUN (07/08/2017 4:00 AM EST) P athologist Signature BUN 16 10 - 20 [facility] mg/dL [facility] Specimen Anatomical Collection Method Collection Time Receive d Time (Source) Location / / Volume Laterality Blood specimen 07/08/2017 4:00 AM 017 4:09 (specimen) EST AM EST Resulting Agency Comment Spec In Lab Yuan Webber MD CHEMISTRY ORDERABLES Performing Organization Address City/[facility] [place] [address] (ABNORMAL) POCT Glucose (07/08/2017 3:00 AM EST) P athologist Signature POC Glucose 273 (H) 65 - 199 [facility] mg/dL [facility] [...] Organization Address City/State/[place] [address] (ABNORMAL) POCT Glucose (07/08/2017 1:57 AM EST) athologist Signature POC Glucose 288 (H) 65 - 199 [facility] mg/dL [facility] [...] Organization Address City/State/[place] [address] (ABNORMAL) POCT Glucose (07/08/2017 1:01 AM EST) athologist Signature POC Glucose 315 (H) 65 - 199 [facility] mg/dL [facility] [...] Organization Address City/State/[place] [address] (ABNORMAL) BLOOD GAS 2 ARTERIAL (07/08/2017 12:09 AM EST) athologist Signature pH Art 7.26 7.35 - [facility] (Critical) 7.[address] [facility] Comment: Noted by instrument maker apprentice. pCO2 Art 41 35 - 45 mmHg [facility] LABOR[facility]ORY pO2 Art 96 85 - 104 mmHg [facility] HCO3 Art 17.7 (L) 20.0 - 26.0 mmol/L [facility] BE Art -9.4 (L) -3.0 - 3.0 mmol/L [facility] Hgb Blood Gas 12.4 (L) 13.7 - 16.5 gm/dL [facility] O2HB Art 94.7 94.0 - 97.0 % [facility] COHB Art 0.2 % [facility] Comment: Noted by instrument maker apprentice. FIO2 Art 40 % [facility] PF Ratio Art 240 [facility]ORY Specimen Anatomical Collection Method Collection Time Receive d Time (Source) Location / / Volume Laterality Blood specimen Arterial Draw / 07/08/2017 12:09 2016 5:31 (specimen) Unknown AM EST AM EST Resulting Agency Comment Spec In Lab Samy Maldonado MD CHEMISTRY ORDERABLES Performing Organization Address City/State/[place] [address] (ABNORMAL) POCT Glucose (07/07/2017 10:56 PM EST) athologist Signature POC Glucose 292 (H) 65 - 199 [facility] mg/dL [facility] LAB[facility] [...] Organization Address City/State/[place] [address] (ABNORMAL) BLOOD GAS 2 ARTERIAL (07/07/2017 10:04 PM EST) athologist Signature pH Art 7.22 7.35 - [facility] (Critical) 7.[address] [facility] Comment: Noted by instrument maker apprentice. pCO2 Art 42 35 - 45 mmHg [facility]ORY pO2 Art 94 85 - 104 mmHg [facility] HCO3 Art 16.9 (L) 20.0 - 26.0 mmol/L [facility] BE Art -10.7 (L) -3.0 - 3.0 mmol/L [facility] Hgb Blood Gas 13.0 (L) 13.7 - 16.5 gm/dL [facility] O2HB Art 93.8 (L) 94.0 - 97.0 % [facility] COHB Art 0.7 % [facility] Comment: Nonsmokers: 0.5-1.5% COHB Smokers: Variable, but usually less than 10% Toxic: 20-30% COHB Lethal: Greater than 60% COHB METHB Art 0.7 <=1.5 % [facility] Na Whole Blood 140 135 - 145 mmol/L [facility] Comment: Noted by instrument maker apprentice. FIO2 Art 40 % [facility] PF Ratio Art 235 [facility] LABOR[facility]ORY Specimen Anatomical Collection Method Collection Time Receive d Time (Source) Location / / Volume Laterality Blood specimen 07/07/2017 10:04 7 (specimen) PM EST 10:04 PM EST Daphne Shahid MD CHEMISTRY ORDERABLES Performing Organization Address City/State/ZIP Code Phon e Number [address] (ABNORMAL) Hemoglobin (07/07/2017 10:00 PM EST) P athologist Signature Hemoglobin 12.8 (L) 13.7 - [facility] 16.5 gm/dL [facility] Specimen Anatomical Collection Method Collection Time Receive d Time (Source) Location / / Volume Laterality Blood specimen 07/07/2017 10:00 7 (specimen) PM EST 10:13 PM EST Resulting Agency Comment Spec In Lab Yuan Webber MD HEMATOLOGY ORDERABLES Performing Organization Address City/State/ZIP Code Phon e Number [address] (ABNORMAL) Potassium (07/07/2017 10:00 PM EST) P athologist Signature Potassium 3.4 (L) 3.5 - 5.0 [facility] mmol/L [facility] Comment: Please note: ??Patients with [...] Webber MD CHEMISTRY ORDERABLES Performing Organization Address City/[facility]/[place] [address] (ABNORMAL) POCT Glucose (07/07/2017 8:49 PM EST) P athologist Signature POC Glucose 241 (H) 65 - 199 [facility] mg/dL [facility] [...] - [facility]/[place] [address] Prepare Albumin 5% in [...] [facility]LOOD B[facility] ORDERABLES Performing Organization Address City/[facility]/[place] [address] EKG 12 Lead (07/07/2017 7:17 PM EST) Component Value Ref Range Test Analysis Performed Pathologis t Method Time At Signature Ventricular rate 75 BPM MUSE SYSTEM Atrial Rate 75 BPM MUSE SYSTEM P-R Interval 168 ms MUSE SYSTEM QRS Duration 104 ms MUSE SYSTEM Q-T Interval 462 ms MUSE SYSTEM QTC Calculated 515 ms MUSE SYSTEM (Bezet) Calculated P Nelson 52 degrees MUSE SYSTEM Calculated R Nelson -40 degrees MUSE SYSTEM Calculated T Nelson 39 degrees MUSE SYSTEM INTERPRETATION Normal sinus [...] pH Art 7.21 7.35 - [facility] (Critical) 7.[address] [facility] Comment: Noted by instrument maker apprentice. pCO2 Art 50 (H) 35 - 45 mmHg [facility] pO2 Art 238 (H) 85 - 104 mmHg [facility] HCO3 Art 19.8 (L) 20.0 - 26.0 mmol/L [facility] BE Art -8.1 (L) -3.0 - 3.0 mmol/L [facility] Hgb Blood Gas 12.8 (L) 13.7 - 16.5 gm/dL [facility] O2HB Art 97.5 (H) 94.0 - 97.0 % [facility] COHB Art 0.5 % [facility] Comment: Nonsmokers: 0.5-1.5% COHB Smokers: Variable, but usually less than 10% Toxic: 20-30% COHB Lethal: Greater than 60% COHB METHB Art 0.7 <=1.5 % [facility] Na Whole Blood 140 135 - 145 mmol/L [facility] K Whole Blood 3.0 (Critical) 3.5 - 5.0 mmol/L [facility] Comment: Noted by instrument maker apprentice. Please note: Patients with WBC >100,000 [...] [facility] Comment: Noted by instrument maker apprentice. FIO2 Art 100 % [facility] PF Ratio Art 238 [facility] Specimen Anatomical Collection Method Collection Time Receive d Time (Source) Location / / Volume Laterality Blood specimen 07/07/2017 6:57 PM 017 6:57 (specimen) EST PM EST Daphne Shahid MD CHEMISTRY ORDERABLES Performing Organization Address City/State/[place] [address] (ABNORMAL) BLOOD GAS 2 ARTERIAL (07/07/2017 5:31 PM EST) P athologist Signature pH Art 7.29 7.35 - [facility] (Critical) 7.[address] [facility] Comment: Noted by instrument maker apprentice. pCO2 Art 48 (H) 35 - 45 mmHg [facility] pO2 Art 137 (H) 85 - 104 mmHg [facility] HCO3 Art 22.4 20.0 - 26.0 mmol/L [facility] BE Art -4.3 (L) -3.0 - 3.0 mmol/L [facility] Hgb Blood Gas 10.0 (L) 13.7 - 16.5 gm/dL [facility] O2HB Art 97.3 (H) 94.0 - 97.0 % [facility] COHB Art 0.3 % [facility] Comment: Nonsmokers: 0.5-1.5% COHB Smokers: Variable, but usually less than 10% Toxic: 20-30% COHB Lethal: Greater than 60% COHB METHB Art 0.3 <=1.5 % [facility] Na Whole Blood 132 (L) 135 - 145 mmol/L [facility] WB 3.1 (H) 0.5 - 2.2 mmol/L [facility] Specimen Anatomical Collection Method Collection Time Receive d Time (Source) Location / / Volume Laterality Blood specimen 07/07/2017 5:31 PM 017 5:31 (specimen) EST PM EST Daphne Shahid MD CHEMISTRY ORDERABLES Performing Organization Address City/State/[place] [address] Fibrinogen (07/07/2017 5:30 PM EST) P athologist Signature Fibrinogen 224 180 - 510 [facility] mg/dL [facility] Comment: Called by: JEET, Read [...] Perez MD HEMATOLOGY ORDERABLES Performing Organization Address City/[facility] Code Phon e Number [address] APTT (07/07/2017 5:30 PM [...] Perez MD HEMATOLOGY ORDERABLES Performing Organization Address [facility] [place] [address] (ABNORMAL) Prothrombin Time (07/07/2017 5:30 PM EST) P athologist Signature PT 19.0 (H) 11.8 - 14.0 [facility] [...] Perez MD HEMATOLOGY ORDERABLES Performing Organization Address City/[facility]/[place] [address] (ABNORMAL) Hemogram (07/07/2017 5:30 PM EST) athologist Signature WBC 19.6 (H) 4.0 - 9.5 [facility] x10(3)/[facility] LABORATORY RBC 3.08 (L) 4.58 - [facility] 5.54 [facility] x10(6)/[facility] Hemoglobin 9.2 (L) 13.7 - [facility] 16.5 gm/dL [facility] Hematocrit 28.0 (L) 40.5 - [facility] 48.5 % [facility] Comment: This result has been called to MONICA MORAN by DONALD GROSSMAN on 07 07 2017 at 1759, and has been read back. MCV 90.9 82.9 - 93.1 [facility] LABORATORY MCH 29.9 27.5 - 32.1 pg [facility] MCHC 32.9 32.0 - 35.7 gm/dL [facility] Platelets 155 145 - 357 x10(3)/[facility] LABORATORY RDWSD 46.5 (H) 36.0 - 45.0 [facility] LABORATORY RDWCV 14.1 (H) 11.4 - 13.8 % [facility] MPV 9.5 7.6 - 12.9 St [...] Organization Address City/State/[place] [address] Prepare Platelets, Apheresis (07/07/2017 5:00 PM EST) P athologist Signature Dispensed? Yes [facility] Specimen Anatomical Collection Method Collection Time Receive d Time (Source) Location / / Volume Laterality Blood specimen 07/07/2017 5:00 PM 017 4:58 (specimen) EST PM EST Daphne Shahid MD BLOOD BANK ORDERABLES Performing Organization Address City/State/[place] [address] Platelet count (07/07/2017 4:55 PM EST) athologist Signature Platelets 177 145 - 357 [facility] x10(3)/[facility] LABORATORY Plat Immature 1.5 0.0 - 7.4 [facility] % % [facility] Comment: Limitation of the Immature Platelet Frac tion (IPF)-May be less reliable when the platelet count is less than 98y036/u L due to statistical imprecision. The IPF [...] in a decreased state of production. References: [employer] The Clinical Value of the Immature Platelet Fraction (IPF) in Cell Recovery Document Number [id number] 12/2010 [employer] The Role of the Imm ature Platelet Fraction (IPF) in the Differential Diagnosis of Thrombocytopen ia, Document [id number] V0/07/08 P012/06 Specimen Anatomical Collection Method Collection Time Receive d Time (Source) Location / / Volume Laterality Blood specimen 07/07/2017 4:55 PM 017 5:13 (specimen) EST PM EST Resulting Agency Comment Spec In Lab Daphne Shahid MD HEMATOLOGY ORDERABLES Performing Organization Address City/[facility]/[place] [address] (ABNORMAL) Hemoglobin and Hematocrit, blood (07/07/2017 4:55 PM EST) P athologist Signature Hemoglobin 9.1 (L) 13.7 - 16.5 [facility] Comment: This result has been [...] Shahid MD HEMATOLOGY ORDERABLES Performing Organization Address City/[facility]/[place] [address] (ABNORMAL) BLOOD GAS 2 ARTERIAL (07/07/2017 4:38 PM EST) Analysis Performed At Patho logist Time Signature pH Art 7.37 7.35 - [facility] 7.[address] [facility] pCO2 Art 44 35 - 45 [facility] mmHg [facility] pO2 Art 322 (H) 85 - 104 [facility] mmHg [facility] HCO3 Art 24.9 20.0 - [facility] 26.0 [facility] mmol/L [facility] BE Art -0.4 -3.0 - 3.0 [facility] mmol/L [facility] Hgb Blood Gas 10.1 (L) 13.7 - [facility] 16.5 gm/dL [facility] O2HB Art 98.7 (H) 94.0 - [facility] 97.0 % [facility] COHB Art 0.1 % [facility] Comment: Nonsmokers: 0.5-1.5% COHB Smokers: Variable, but usually less than 10% Toxic: 20-30% COHB Lethal: Greater than 60% COHB METHB Art 0.3 <=1.5 % [facility] Na Whole Blood 130 (L) 135 - 145 mmol/L [facility] Comment: Noted by instrument maker apprentice. Note: ??Total bilirubin higher than 20 [...] Organization Address City/State/[place] [address] (ABNORMAL) BLOOD GAS 2 VENOUS (07/07/2017 4:06 PM EST) Analysis Performed At Patho logist Time Signature pH Cody 7.31 (L) 7.32 - [facility] 7.[address] [facility] pCO2 Cody 47 41 - 51 [facility] LABORATORY pO2 Cody 53 (H) 25 - 40 [facility] LABORATORY HCO3 Cody 22.7 mmol/L [facility] BE Cody -3.7 mmol/L [facility] Hgb Blood Gas 10.2 (L) 13.7 - [facility] 16.5 gm/dL [facility] O2HB Cody 81.0 % [facility] COHB Cody 1.0 % [facility] Comment: Nonsmokers: 0.5-1.5% COHB Smokers: Variable, but usually less than 10% Toxic: 20-30% COHB Lethal: Greater than 60% COHB METHB Cody 0.3 <=1.5 % [facility] Na Whole Blood 132 (L) 135 - 145 mmol/L [facility] Comment: Noted by instrument maker apprentice. Note: ??Total bilirubin higher than 20 m g/dL may lead to falsely low ionized calcium. CL Whole Blood 100 98 - 107 mmol/L [facility] Gluc Whole Bld 231 (H) 65 - 199 mg/dL [facility] Comment: Diabetes: >=200 mg/dL plus symp toms Lactate WB 1.1 0.5 - 2.2 mmol/L [facility] BGas Source Venous [facility] Specimen Anatomical Collection Method Collection Time Receive d Time (Source) Location / / Volume Laterality Blood specimen 07/07/2017 4:06 PM 017 4:06 (specimen) EST PM EST Daphne Shahid MD CHEMISTRY ORDERABLES Performing Organization Address City/State/[place] [address] (ABNORMAL) BLOOD GAS 2 ARTERIAL (07/07/2017 4:05 PM EST) Analysis Performed At Patho logist Time Signature pH Art 7.36 7.35 - [facility] 7.[address] [facility] pCO2 Art 40 35 - 45 [facility] LABORATORY pO2 Art 282 (H) 85 - 104 [facility] LABORATORY HCO3 Art 22.1 20.0 - [facility] 26.0 [facility] mmol/L [facility] LABORATORY BE Art -3.4 (L) -3.0 - 3.0 [facility] mmol/L [facility] Hgb Blood Gas 10.2 (L) 13.7 - [facility] 16.5 gm/dL [facility] O2HB Art 98.4 (H) 94.0 - [facility] 97.0 % [facility] COHB Art 0.3 % [facility] Comment: Nonsmokers: 0.5-1.5% COHB Smokers: Variable, but usually less than 10% Toxic: 20-30% COHB Lethal: Greater than 60% COHB METHB Art 0.3 <=1.5 % [facility] Na Whole Blood 131 (L) 135 - 145 mmol/L [facility] Comment: Noted by instrument maker apprentice. Note: ??Total bilirubin higher than 20 [...] Organization Address City/State/[place] [address] (ABNORMAL) BLOOD GAS 2 ARTERIAL (07/07/2017 2:29 PM EST) Analysis Performed At Patho logist Time Signature pH Art 7.43 7.35 - [facility] 7.[address] [facility] pCO2 Art 36 35 - 45 [facility] LABORATORY pO2 Art 221 (H) 85 - 104 [facility] LABORATORY HCO3 Art 23.2 20.0 - [facility] 26.0 [facility] mmol/L [facility] LAB[facility] BE Art -1.2 -3.0 - 3.0 [facility] mmol/L [facility] Hgb Blood Gas 13.9 13.7 - [facility] 16.5 gm/dL [facility] O2HB Art 97.8 (H) 94.0 - [facility] 97.0 % [facility] COHB Art 1.1 % [facility] [...] Organization Address City/State/[place] [address] Prepare Coag Factors (Non-Hemophilia) (07/07/2017 1:25 PM EST) P athologist Signature Dispensed? Yes [facility] Specimen Anatomical Collection Method Collection Time Receive d Time (Source) Location / / Volume Laterality Blood specimen 07/07/2017 1:25 PM 017 1:21 (specimen) EST PM EST Daphne Shahid MD BLOOD BANK ORDERABLES Performing Organization Address City/State/ZIP Code Phon e Number [address] Prepare RBC (07/07/2017 1:10 PM EST) P athologist Signature Dispensed? Yes [facility] Specimen Anatomical Collection Method Collection Time Receive d Time (Source) Location / / Volume Laterality Blood specimen 07/07/2017 1:10 PM 017 1:05 (specimen) EST PM EST Daphne Shahid MD BLOOD BANK ORDERABLES Performing Organization Address City/State/[place] [address] POCT Glucose (07/07/2017 11:56 AM EST) athologist Signature POC Glucose 188 65 - 199 [facility] mg/dL [facility] LABORATORY [...] - [facility]/[place] [address] POCT Glucose (07/07/2017 11:05 AM EST) athologist Signature POC Glucose 168 65 - 199 [facility] LABOR[facility]ORY [...] Address City/State/ZIP Code Phon e Number [address] POCT Glucose (07/07/2017 10:02 AM EST) P athologist Signature POC Glucose 191 65 - 199 [facility] mg/dL [facility]OR[facility]ORY [...] Address City/State/ZIP Code Phon e Number [address] POCT Glucose (07/07/2017 7:53 AM EST) athologist Signature POC Glucose 178 65 - 199 [facility] mg/dL [facility] LABOR[facility]ORY [...] Address City/State/ZIP Code Phon e Number [address] POCT Glucose (07/07/2017 7:03 AM EST) athologist Signature POC Glucose 188 65 - 199 [facility] mg/dL [facility]ORY [...] Organization Address City/State/[place] [address] (ABNORMAL) POCT Glucose (07/07/2017 6:17 AM EST) athologist Signature POC Glucose 207 (H) 65 - 199 [facility] mg/dL [facility] [...] - [facility]/ZIP Code Phon e Number [address] Differential, Automated (07/07/2017 5:15 AM EST) athologist Signature Neutrophils % 69.7 % [facility] Neutr Abs (ANC) 5.32 1.70 - [facility] 6.10 [facility] x10(3)/[facility]ATORY Lymphocytes % 16.3 % [facility] Lymphocytes Abs 1.2 0.9 - 3.2 [facility] x10(3)/[facility] LABORATORY Monocytes % 10.5 % [facility] Monocyte Abs 0.8 0.3 - 0.9 [facility] x10(3)/[facility] LABORATORY Eosinophils % 2.5 % [facility] Eosinophils Abs 0.2 0.0 - 0.4 [facility] x10(3)/[facility] LABORATORY Basophils % 0.7 % [facility] Basophils Abs 0.0 0.0 - 0.1 [facility] x10(3)/[facility] LABORATORY Immature Gran % [...] Melisa Gran Abs 0.02 0.00 - 0.04 x10(3)/[facility]ORY Specimen Anatomical Collection Method Collection Time Receive d Time (Source) Location / / Volume Laterality Blood specimen 07/07/2017 5:15 AM 017 5:34 (specimen) EST AM EST Resulting Agency Comment Spec In Lab Daphne Shahid MD HEMATOLOGY ORDERABLES Performing Organization Address City/State/[place] [address] (ABNORMAL) Hemogram (07/07/2017 5:15 AM EST) Analysis Performed At Patho logist Time Signature WBC 7.6 4.0 - 9.5 [facility] x10(3)/[facility] LABORATORY RBC 4.82 4.58 - [facility] 5.54 [facility] x10(6)/[facility] Hemoglobin 14.4 13.7 - [facility] 16.5 gm/dL [facility] Hematocrit 42.1 40.5 - [place] 48.5 % [facility] MCV 87.3 82.9 - [place] 93.1 [facility] LABORATORY MCH 29.9 27.5 - [place] [facility] 32.[address] [facility] MCHC 34.2 32.0 - [facility] 35.7 gm/dL [facility] Platelets 188 145 - 357 [facility] x10(3)/[facility] LABORATORY RDWSD 45.1 (H) 36.0 - [place] 45.0 [facility] RDWCV 14.3 (H) 11.4 - [facility] SU 13.8 % [facility] MPV 9.4 7.6 - 12.9 [facility] LABORATORY nRBC % Auto 0.0 % [facility] nRBC Abs Auto 0.000 0.000 - [facility] 0.000 [facility] x10(3)/[facility] LABORATORY Specimen Anatomical Collection Method Collection Time Receive d Time (Source) Location / / Volume Laterality Blood specimen 07/07/2017 5:15 AM 017 5:34 (specimen) EST AM EST Resulting Agency Comment Spec In Lab Daphne Shahid MD HEMATOLOGY ORDERABLES Performing Organization Address City/[facility]/[place] [address] (ABNORMAL) APTT (07/07/2017 5:15 [...] Shahid MD HEMATOLOGY ORDERABLES Performing Organization Address City/[facility]/[place] [address] Magnesium (07/07/2017 5:15 AM EST) P athologist Signature Magnesium 0.94 0.69 - 1.07 [facility] mmol/L [facility] Specimen Anatomical Collection Method Collection Time Receive d Time (Source) Location / / Volume Laterality Blood specimen 07/07/2017 5:15 AM 017 5:34 (specimen) EST AM EST Resulting Agency Comment Spec In Lab Daphne Shahid MD CHEMISTRY ORDERABLES Performing Organization Address City/[facility]/[place] [address] (ABNORMAL) Basic Metabolic Panel (non-fasting) (07/07/2017 5:15 AM EST) athologist Signature Glucose Lvl 203 (H) 65 - 199 [facility] mg/dL [facility] [...] or in patients with acute kidney failure. [email or web address] Specimen Anatomical Collection Method Collection Time Receive d Time (Source) Location / / Volume Laterality Blood specimen 07/07/2017 5:15 AM 017 5:34 (specimen) EST AM EST Resulting Agency Comment Spec In Lab Daphne Shahid MD CHEMISTRY ORDERABLES Performing Organization Address City/State/[place] [address] (ABNORMAL) Cardiac Enzymes (LEB/CGP) (07/07/2017 5:15 AM EST) athologist Signature Troponin-T 2.07 (H) 0.00 - [facility] 0.00 ng/mL [facility] Comment: The 99th percentile for [...] additional sample may be indicated. Reference: Third [place] Definition of Myocardial Infarction. Journal of the [...] Organization Address City/State/[place] [address] POCT Glucose (07/07/2017 5:01 AM EST) P athologist Signature POC Glucose 182 65 - 199 [facility] mg/dL [facility] LABOR[facility]ORY [...] Address City/State/ZIP Code Phon e Number [address] POCT Glucose (07/07/2017 4:08 AM EST) athologist Signature POC Glucose 199 65 - 199 [facility] mg/[facility] [...] - [facility]/[place] [address] POCT Glucose (07/07/2017 3:03 AM EST) athologist Signature POC Glucose 188 65 - 199 [facility] mg/dL [facility] LABOR[facility]ORY [...] Organization Address City/State/[place] [address] (ABNORMAL) POCT Glucose (07/07/2017 2:08 AM EST) athologist Signature POC Glucose 200 (H) 65 - 199 [facility] mg/[facility] [...] Organization Address City/State/[place] [address] (ABNORMAL) POCT Glucose (07/07/2017 1:31 AM EST) P athologist Signature POC Glucose 209 (H) 65 - 199 [facility] LAB[facility]ORY [...] Organization Address City/State/[place] [address] XR Chest PA or [...] Signature POC Glucose 161 65 - 199 [facility] mg/dL [facility] LAB[facility] [...] - [facility]/[place] [address] (ABNORMAL) APTT (07/07/2017 12:00 [...] Organization Address City/State/[place] [address] POCT Glucose (07/06/2017 9:55 PM EST) athologist Signature POC Glucose 109 65 - 199 [facility] LAB[facility] [...] Address City/State/ZIP Code Phon e Number [address] POCT Glucose (07/06/2017 9:04 PM EST) athologist Signature POC Glucose 120 65 - 199 [facility] mg/dL [facility] LABOR[facility]ORY [...] - [facility]/[place] [address] POCT Glucose (07/06/2017 7:45 PM EST) athologist Signature POC Glucose 158 65 - 199 [facility] mg/dL [facility] [...] - [facility]/[place] [address] Potassium (07/06/2017 7:40 PM EST) athologist Signature Potassium 3.9 3.5 - 5.0 [facility] mmol/L [facility] Comment: Please note: ??Patients with [...] Shahid MD CHEMISTRY ORDERABLES Performing Organization Address City/[facility]/[place] [address] (ABNORMAL) Cardiac Enzymes (LEB/CGP) (07/06/2017 7:40 PM EST) athologist Signature Troponin-T 2.27 (H) 0.00 - [facility] 0.00 ng/mL [facility] Comment: The 99th percentile for [...] additional sample may be indicated. Reference: Third [place] Definition of Myocardial Infarction. Journal of the [...] Organization Address City/State/[place] [address] (ABNORMAL) POCT Glucose (07/06/2017 7:13 PM EST) athologist Signature POC Glucose 200 (H) 65 - 199 [facility] mg/dL [facility] Comment: Supplemental ranges: <140 mg/dL before meals <180 mg/dL all other times of the day Specimen Anatomical Collection Method Collection Time Receive d Time (Source) Location / / Volume Laterality Blood specimen 07/06/2017 7:13 PM 017 7:13 (specimen) EST PM EST Daphne Shahid MD POINT OF CARE TEST ORDERABLE S Performing Organization Address City/State/ZIP Code [facility] [place] [address] (ABNORMAL) APTT (07/06/2017 6:15 PM EST) athologist [facility] PTT 94 (H) 25 - 35 sec [...] Organization Address City/State/[place] [address] (ABNORMAL) POCT Glucose (07/06/2017 6:03 PM EST) athologist Signature POC Glucose 236 (H) 65 - 199 [facility] mg/dL [facility] LABORATORY [...] Organization Address City/State/[place] [address] (ABNORMAL) POCT Glucose (07/06/2017 5:01 PM EST) P athologist Signature POC Glucose 235 (H) 65 - 199 [facility] mg/dL [facility] LAB[facility]ORY [...] - [facility]/[place] [address] (ABNORMAL) POCT Glucose (07/06/2017 4:06 PM EST) P athologist Signature POC Glucose 202 (H) 65 - 199 [facility] mg/dL [facility] [...] Organization Address City/State/[place] [address] POCT Glucose (07/06/2017 2:59 PM EST) P athologist Signature POC Glucose 178 65 - 199 [place] mg/dL [facility] LABORATORY [...] - [facility]/ZIP Code Phon e Number [address] (ABNORMAL) Cardiac Enzymes (LEB/CGP) (07/06/2017 2:10 PM EST) P athologist Signature Troponin-T 2.34 (H) 0.00 - [place] SU 0.00 ng/mL [facility] Comment: The 99th percentile for [...] additional sample may be indicated. Reference: Third [place] Definition of Myocardial Infarction. Journal of the [...] Shahid MD CHEMISTRY ORDERABLES Performing Organization Address City/[facility]/[place] [address] POCT Glucose (07/06/2017 2:08 PM EST) P athologist Signature POC Glucose 192 65 - 199 [place] ZHAOSU mg/dL [facility] LABORATORY [...] Address City/State/ZIP Code Phon e Number [address] POCT Glucose (07/06/2017 1:04 PM EST) athologist Signature POC Glucose 162 65 - 199 [facility] SU mg/dL [facility] LABORATORY [...] Address City/State/ZIP Code Phon e Number [address] POCT Glucose (07/06/2017 12:05 PM EST) athologist Signature POC Glucose 196 65 - 199 [facility] SU mg/dL [facility] LABORATORY [...] Organization Address City/State/[place] [address] EKG 12 Lead (07/06/2017 12:00 PM EST) Component Value Ref Range Test Analysis Performed Pathologis t Method Time At Signature Ventricular rate 91 BPM MUSE SYSTEM Atrial Rate 91 BPM MUSE SYSTEM P-R Interval 140 ms MUSE SYSTEM QRS Duration 94 ms MUSE SYSTEM Q-T Interval 394 ms MUSE SYSTEM QTC Calculated 484 ms MUSE SYSTEM (Bezet) Calculated P Nelson 36 degrees MUSE SYSTEM Calculated R Nelson -19 degrees MUSE SYSTEM Calculated T Nelson 104 degrees MUSE SYSTEM INTERPRETATION Normal sinus rhythm MUSE SYSTEM 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) ST & T wave abnormality, consider lateral ischemia Abnormal ECG When compared with ECG of 05-JUL-2017 20:39, No significant change was found Confirmed by MD Luci, Taurus Braun ([id number]) on 07/06/2017 5:07:33 PM Specimen Anatomical Collection Method Collection Time Receive d Time (Source) Location / / Volume Laterality 07/06/2017 12:00 07/06/2017 5:07 PM EST PM EST Daphne Shahid MD ECG ORDERABLES Performing Organization Address City/[facility]/ZIP Code Phon e Number MUSE SYSTEM ABORH Recheck Status (07/06/2017 12:00 PM EST) [facility] Method Time Signature ABORH Type Completed [facility] LABORATORY Specimen Anatomical Collection Method Collection Time Receive d Time (Source) Location / / Volume Laterality Blood specimen 07/06/2017 12:00 7 (specimen) PM EST 12:24 PM EST Resulting Agency Comment Spec In Lab Daphne Shahid MD BLOOD BANK ORDERABLES Performing Organization Address City/[facility]/[place] [address] Antibody screen (07/06/2017 12:00 PM EST) [facility] Method Time Signature Ab Screen Negative [facility] LABORATORY Expires at 07/09/2017 [facility] [id number] on: [facility] Specimen Anatomical Collection Method Collection Time Receive d Time (Source) Location / / Volume Laterality Blood specimen 07/06/2017 12:00 7 (specimen) PM EST 12:24 PM EST Resulting Agency Comment Spec In Lab Daphne Shahid MD BLOOD BANK ORDERABLES Performing Organization Address City/[facility]/[place] [address] ABO/Rh Typing (07/06/2017 12:00 [...] City/State/ZIP Code Phon e Number [place] [id number]OSPITAL LAB[address]ORY [address] Prothrombin Time (07/06/2017 11:24 AM EST) athologist Signature PT 13.3 11.8 - 14.0 [facility] LABORATORY INR 1.0 0.9 - 1.1 [facility] [...] City/State/ZIP Code Phon e Number [place] [id number]OSPITAL LAB[address]ORY [address] (ABNORMAL) APTT (07/06/2017 11:24 [...] Address City/State/ZIP Code Phon e Number [address] POCT Glucose (07/06/2017 11:02 AM EST) athologist Signature POC Glucose 187 65 - 199 [place] mg/dL [facility]OR[facility]ORY [...] Address City/State/ZIP Code Phon e Number [address] POCT Glucose (07/06/2017 10:18 AM EST) athologist Signature POC Glucose 193 65 - 199 [place] mg/dL [facility]ORY [...] Address City/State/ZIP Code Phon e Number [address] POCT Glucose (07/06/2017 9:25 AM EST) athologist Signature POC Glucose 182 65 - 199 [place] mg/dL [facility] [...] - [facility]/[place] [address] (ABNORMAL) Cardiac Enzymes (LEB/CGP) (07/06/2017 8:10 AM EST) P athologist Signature Troponin-T 2.26 (H) 0.00 - [facility] ng/mL [facility] Comment: The 99th percentile for [...] additional sample may be indicated. Reference: Third [place] Definition of Myocardial Infarction. Journal of the [...] Address City/State/ZIP Code Phon e Number [place] [address] Magnesium (07/06/2017 8:10 AM EST) athologist Signature Magnesium 0.84 0.69 - 1.07 [facility] mmol/L [facility]ORY Specimen Anatomical Collection Method Collection Time Receive d Time (Source) Location / / Volume Laterality Blood specimen 07/06/2017 8:10 AM 017 8:21 (specimen) EST AM EST Resulting Agency Comment Spec In Lab Daphne Shahid MD CHEMISTRY ORDERABLES Performing Organization Address City/State/ZIP Code Phon e Number [address] (ABNORMAL) Basic Metabolic Panel (non-fasting) (07/06/2017 8:10 AM EST) athologist Signature Glucose Lvl 199 65 - 199 [facility] mg/dL [facility]OR[facility]ORY [...] or in patients with acute kidney failure. http://[employer]/DHnkdep http://[employer]/DHMCnkf Specimen Anatomical Collection Method Collection Time Receive d Time (Source) Location / / Volume Laterality Blood specimen 07/06/2017 8:10 AM 017 8:21 (specimen) EST AM EST Resulting Agency Comment Spec In Lab Daphne Shahid MD CHEMISTRY ORDERABLES Performing Organization Address City/[facility]/ZIP Code Phon e Number [address] POCT Glucose (07/06/2017 7:34 AM EST) athologist Signature POC Glucose 198 65 - 199 [facility] [...] - [facility]/[place] [address] POCT Glucose (07/06/2017 7:03 AM EST) athologist Signature POC Glucose 181 65 - 199 [facility] [...] - [facility]/[place] [address] XR Chest PA or [...] Glucose 172 65 - 199 [facility] mg/dL [facility]OR[facility]ORY [...] Address City/State/ZIP Code Phon e Number [address] POCT Glucose (07/06/2017 5:08 AM EST) athologist Signature POC Glucose 154 65 - 199 [place] mg/dL [facility]ORY [...] Address City/State/ZIP Code Phon e Number [address] POCT Glucose (07/06/2017 4:05 AM EST) athologist Signature POC Glucose 142 65 - 199 [place] mg/dL [facility] Comment: Supplemental ranges: <140 mg/dL before meals <180 mg/dL all other times of the day Specimen Anatomical Collection Method Collection Time Receive d Time (Source) Location / / Volume Laterality Blood specimen 07/06/2017 4:05 AM 017 4:05 (specimen) EST AM EST aDphne Shahid MD POINT OF CARE TEST ORDERABLE S Performing Organization Address City/State/ZIP Code Phon e Number [address] POCT Glucose (07/06/2017 3:00 AM EST) athologist Signature POC Glucose 116 65 - 199 [place] mg/dL [facility] [...] - [facility]/ZIP Code Phon e Number [address] Potassium (07/06/2017 2:20 AM EST) athologist Signature Potassium 3.9 3.5 - 5.0 [facility]/L [facility] Comment: Please note: ??Patients with [...] Shahid MD CHEMISTRY ORDERABLES Performing Organization Address City/[facility]/ZIP Code Phon e Number [address] Differential, Automated (07/06/2017 2:20 AM EST) athologist Signature Neutrophils % 72.9 % [facility] LABORATORY Neutr Abs (ANC) 5.53 1.70 - [facility] 6.10 [facility] x10(3[facility] LAB[facility]ORY Lymphocytes % 16.4 % [facility] LABORATORY Lymphocytes Abs 1.2 0.9 - 3.2 [facility] x10(3)/[place] [facility] LABORATORY Monocytes % 9.4 % [facility] LABORATORY Monocyte Abs 0.7 0.3 - 0.9 [facility] x10(3)/[facility] [facility] LABORATORY Eosinophils % 0.5 % [facility] LABORATORY Eosinophils Abs 0.0 0.0 - 0.4 [facility] x10(3)/[facility] LABORATORY Basophils % 0.4 % [facility] LABORATORY Basophils Abs 0.0 0.0 - 0.1 [facility] x10(3)/[facility] LABORATORY Immature Gran % [...] Abs 0.03 0.00 - 0.04 x10(3)/[facility] LABORATORY Specimen Anatomical Collection Method Collection Time Receive d Time (Source) Location / / Volume Laterality Blood specimen 07/06/2017 2:20 AM 017 2:33 (specimen) EST AM EST Resulting Agency Comment Spec In Lab Daphne Shahid MD HEMATOLOGY ORDERABLES Performing Organization Address City/State/[place] [address] (ABNORMAL) Hemogram (07/06/2017 2:20 AM EST) Analysis Performed At Patho logist Time Signature WBC 7.6 4.0 - 9.5 [facility] x10(3)/[facility] LABORATORY RBC 4.52 (L) 4.58 - [place] 5.54 [facility] x10(6)/[facility] LABORATORY Hemoglobin 13.4 (L) 13.7 - [facility] 16.5 gm/dL [facility] Hematocrit 39.7 (L) 40.5 - [facility] 48.5 % [facility] MCV 87.8 82.9 - [facility] 93.1 [facility] LABORATORY MCH 29.6 27.5 - [facility] SU 32.[address] [facility] LAB[facility]ORY MCHC 33.8 32.0 - [facility] 35.7 gm/dL [facility] Platelets 189 145 - 357 [facility] x10(3)/[facility] LABORATORY RDWSD 45.6 (H) 36.0 - [facility] 45.0 [facility] LABORATORY RDWCV 14.3 (H) 11.4 - [facility] SU 13.8 % [facility] LABORATORY MPV 9.1 7.6 - 12.9 [facility] LABORATORY nRBC % Auto 0.0 % [facility] LABORATORY nRBC Abs Auto 0.000 0.000 - [place] DAVIS 0.000 [facility] x10(3)/[facility] LABORATORY Specimen Anatomical Collection Method Collection Time Receive d Time (Source) Location / / Volume Laterality Blood specimen 07/06/2017 2:20 AM 017 2:33 (specimen) EST AM EST Resulting Agency Comment Spec In Lab Daphne Shahid MD HEMATOLOGY ORDERABLES Performing Organization Address City/State/ZIP Code Phon e Number [address] (ABNORMAL) APTT (07/06/2017 2:20 [...] Shahid MD HEMATOLOGY ORDERABLES Performing Organization Address City/[facility]/ZIP Code Phon e Number [address] POCT Glucose (07/06/2017 2:20 AM EST) P athologist Signature POC Glucose 115 65 - 199 [facility] mg/dL [facility] LAB[facility]ORY [...] - [facility]/[place] [address] (ABNORMAL) Cardiac Enzymes (LEB/CGP) (07/06/2017 2:20 AM EST) P athologist Signature Troponin-T 2.13 (H) 0.00 - [place] 0.00 ng/mL [facility] Comment: The 99th percentile for [...] additional sample may be indicated. Reference: Third [place] Definition of Myocardial Infarction. Journal of the [...] Organization Address City/State/[place] [address] (ABNORMAL) Hemoglobin A1c (07/06/2017 [...] into estimated average glucose values. ??Diabetes Care 2008:31(8):9257-3716. Specimen Anatomical Collection Method Collection Time Receive d Time (Source) Location / / Volume Laterality Blood specimen 07/06/2017 2:20 AM 017 2:34 (specimen) EST AM EST Resulting Agency Comment Spec In Lab Daphne Shahid MD CHEMISTRY ORDERABLES Performing Organization Address City/State/ZIP Code Phon e Number [facility], [facility] (ABNORMAL) Lipid Panel (07/06/2017 2:20 AM EST) Patholo gist Method Time Signature Chol, Total 150 <=239 [place] mg/dL [facility] LABORATORY Triglycerides 129 <=199 [facility] mg/dL [facility] LABORATORY HDL 32 (L) >=40 [place] mg/dL [facility] LABORATORY LDL Cholesterol 92 <=190 [facility] mg/dL [facility] LABORATORY Chol/HDL Ratio 4.7 ratio [facility] LABORATORY Lipid See Note [place] Interpretation [facility] LABORATORY Comment: Lipid management should be guided by a p atient? s ASCVD risk, goals and preferences. ACC/AHA Guidelines recommend high intens ity statin if clinical ASCVD or LDL greater than or equal to 190 mg/dL. http://CYBRA/FPP-UVH-Eakpylyog Adults aged 40-75 with LDL 70-189 mg/dL should have their 10 year ASCVD risk estimated with the ACC/AHA ASCVD risk es timator http://tools.acc.org/SNSUE-Khcn-Eltzzqrb r/ Statin should be discussed if risk [...] Address City/State/ZIP Code Phon e Number [address] POCT Glucose (07/06/2017 1:09 AM EST) athologist Signature POC Glucose 121 65 - 199 [place] mg/dL [facility] LABOR[facility]ORY [...] Address City/State/ZIP Code Phon e Number [address] POCT Glucose (07/06/2017 12:06 AM EST) athologist Signature POC Glucose 147 65 - 199 [place] mg/dL [facility] LAB[facility]ORY [...] Organization Address City/State/[place] [address] (ABNORMAL) POCT Glucose (07/05/2017 10:56 PM EST) athologist Signature POC Glucose 200 (H) 65 - 199 [place] mg/dL [facility] LABOR[facility]ORY [...] Organization Address City/State/[place] [address] (ABNORMAL) POCT Glucose (07/05/2017 10:05 PM EST) athologist Signature POC Glucose 225 (H) 65 - 199 [place] mg/dL [facility] LABOR[facility]ORY [...] Organization Address City/State/[place] [address] (ABNORMAL) POCT Glucose (07/05/2017 9:02 PM EST) P athologist Signature POC Glucose 301 (H) 65 - 199 [facility] mg/dL [facility] LABORATORY [...] Organization Address City/State/[place] [address] XR Chest PA or [...] 474 ms MUSE SYSTEM (Bezet) Calculated P Nelson 50 degrees MUSE SYSTEM Calculated R Nelson -28 degrees MUSE SYSTEM Calculated T Nelson 90 degrees MUSE SYSTEM INTERPRETATION Sinus tachycardia [...] (ANC) 9.08 (H) 1.70 - [facility] 6.10 [facility] x10(3)/[facility] LABORATORY Lymphocytes % 7.0 % [facility] LABORATORY Lymphocytes Abs 0.7 (L) 0.9 - 3.2 [facility] x10(3)/[facility] LABORATORY Monocytes % 3.7 % [facility] LABORATORY Monocyte Abs 0.4 0.3 - 0.9 [facility] x10(3)/[facility] LABORATORY Eosinophils % 0.1 % [facility] LABORATORY Eosinophils Abs 0.0 0.0 - 0.4 [facility] x10(3)/[facility] LABORATORY Basophils % 0.2 % [facility] LABORATORY Basophils Abs 0.0 0.0 - 0.1 [facility] x10(3)/[facility] LABORATORY Immature Gran % [...] 0.06 (H) 0.00 - 0.04 x10(3)/[facility] LABORATORY Specimen Anatomical Collection Method Collection Time Receive d Time (Source) Location / / Volume Laterality Blood specimen 07/05/2017 8:20 PM 017 8:27 (specimen) EST PM EST Resulting Agency Comment Spec In Lab Daphne Shahid MD HEMATOLOGY ORDERABLES Performing Organization Address City/State/[place] [address] (ABNORMAL) Hemogram (07/05/2017 8:20 PM EST) Analysis Performed At Patho logist Time Signature WBC 10.3 (H) 4.0 - 9.5 [facility] x10(3)/[facility] LABORATORY RBC 4.64 4.58 - [facility] 5.54 [facility] x10(6)/[facility] LABORATORY Hemoglobin 14.1 13.7 - [facility] 16.5 gm/dL [facility] Hematocrit 40.8 40.5 - [facility] 48.5 % [facility] LABOR[facility]ORY MCV 87.9 82.9 - [place] 93.1 [facility] LABORATORY MCH 30.4 27.5 - [place] 32.[address] [facility] LABORATORY MCHC 34.6 32.0 - [place] ZHAOS[place] 35.7 gm/dL [facility] Platelets 204 145 - 357 [facility] x10(3)/[facility] LABORATORY RDWSD 46.1 (H) 36.0 - [place] SU 45.0 [facility] LABORATORY RDWCV 14.5 (H) 11.4 - [facility] SU 13.8 % [facility] LABORATORY MPV 9.7 7.6 - 12.9 [facility] LABORATORY nRBC % Auto 0.0 % [facility] LABORATORY nRBC Abs Auto 0.000 0.000 - [place] SU 0.000 [facility] x10(3)/[facility] LABORATORY Specimen Anatomical Collection Method Collection Time Receive d Time (Source) Location / / Volume Laterality Blood specimen 07/05/2017 8:20 PM 017 8:27 (specimen) EST PM EST Resulting Agency Comment Spec In Lab Daphne Shahid MD HEMATOLOGY ORDERABLES Performing Organization Address City/State/[place] [address] APTT (07/05/2017 8:20 PM [...] Organization Address City/State/[place] [address] (ABNORMAL) Cardiac Enzymes (LEB/CGP) (07/05/2017 8:20 PM EST) athologist Signature Troponin-T 2.11 (H) 0.00 - [place] 0.00 ng/mL [facility] Comment: The 99th percentile for [...] additional sample may be indicated. Reference: Third [place] Definition of Myocardial Infarction. Journal of the [...] Organization Address City/State/[place] [address] (ABNORMAL) Magnesium (07/05/2017 8:20 PM EST) P athologist Signature Magnesium 0.68 (L) 0.69 - 1.07 [facility] mmol/L [facility] LAB[facility] Specimen Anatomical Collection Method Collection Time Receive d Time (Source) Location / / Volume Laterality Blood specimen 07/05/2017 8:20 PM 017 8:27 (specimen) EST PM EST Resulting Agency Comment Spec In Lab Daphne Shahid MD CHEMISTRY ORDERABLES Performing Organization Address City/State/[place] [address] (ABNORMAL) Basic Metabolic Panel (non-fasting) (07/05/2017 8:20 PM EST) P athologist Signature Glucose Lvl 321 (H) 65 - 199 [facility] mg/dL [facility] LABOR[facility]ORY [...] or in patients with acute kidney failure. http://[employer]/DHnkdep http://CYBRA/DHMCnkf Specimen Anatomical Collection Method Collection Time Receive d Time (Source) Location / / Volume Laterality Blood specimen 07/05/2017 8:20 PM 017 8:27 (specimen) EST PM EST Resulting Agency Comment Spec In Lab Daphne Shahid MD CHEMISTRY ORDERABLES Performing Organization Address City/State/ZIP Code Phon e Number [address] (ABNORMAL) POCT Glucose (07/05/2017 7:32 PM EST) P athologist Signature POC Glucose 296 (H) 65 - 199 [facility] LAB[facility]ORY [...] - [facility]/[place] [address] CARDIAC CATHETERIZATION (07/05/2017 6:47 PM EST) Anatomical Region Laterality Modality Other Specimen (Source) Anatomical Location Collection Method / Collectio n Time Received Time / Laterality Volume Narrative 07/05/2017 7:27 PM EST ?[facility] ? Cardiac Cathete rization/Intervention Report ? Patient Name: Natalya, Gregory ? Procedure Date: 07/05/2017 ? A #: [id number] ? Primary Physician: Clarisa, Jet T ? Case #: [id number] ? File Name: [id number] ? Catheterization Order Number: [id number] ? [facility] ? Final Report [place], [place] ? Patient Name: ? Gregory Natalya ?ID#: ?[id number] ? : ?1945 ? Procedure Date: ? [...] presented with: non -STEMI (w/i 7 days). [place] ?[employer] Society angina c lass was IV. [...] site angio graphy and IABP insertion in cardiac cath lab manager. ? Jet Mckenna M.D. ? Electronically Signed by: Jet bunch M.D. ? Report Finalized: 07/05/2017 ??19:23 ? Report Last Ammended: 10/26/2017 ??10:29 ? Procedure Note Jet Mckenna MD - 10/26/2017Formatt ing of this note might be different from the original. [facility] Cardiac Catheterization/Intervention Re port Patient Name: Gregory Hoang Procedure Date: 07/05/2017 A #: [id number] Primary Physician: Jet Mckenna Case #: [id number] File Name: [id number] Catheterization Order Number: [id number] [facility] Final Report [place], [place] Patient Name: Gregory Hoang ID#: [id number] : 1945 Procedure Date: July 05, [...] presented with: non-STEMI ( w/i 7 days). [place] [employer] angina class was IV. No [...] site angiograph y and IABP insertion in cardiac cath lab manager. Jet Mckenna M.D. Electronically Signed by: [...] Mccollum ? (Age): 1945(72y) Med Rec#: ? [id number] ?Sex: ?M ? Site Loc: ? [facility] ?Ht / Wt: ??173(cm)/86(kg) Pt. Loc: ?CCU ? BSA: ?2 Study Date: ?? 07/05/2017 ?Pt. Type: Inpatient Tape: ? Referring: Daphne Shahid ([id number]) Referring: MANDA ALCANTAR Reading: Blade Preston ([id number]) Repossessor: Dayami Paula BA, [facility] Diagnosis: [...] E-wave Vmax ?0.8 ?m/sec ? MV deceleration [id number] ?msec ? MV A-wave Vmax ?0.8 ?m/sec [...] ? Mid-Inferior ?Akinetic ? Mid-Inferoseptal ?Hypokinetic ? Aspen-Septal ? Akinetic ? Aspen-Anterior ? Hypokinetic ? Aspen-Lateral ?Hypokinetic ? Aspen-Inferior ? Akinetic ? Aspen-Tip ?Akinetic ? This report has been electronically sign ed by: _ Blade Preston MD ? 07/06/2017 08 :53:15 Images reviewed and [facility] Procedure Note Blade Preston MD - 07/06/2017Formatt ing of this note might be different from the original. Procedure: Transthoracic Echocardiogram Patient: NATALYA MCBRIDE(Age): [birth year]72y) Med Rec#: [id number] Sex: M Site Loc: [facility] Ht / Wt: 173(cm)/86(kg) Pt. Loc: CCU BSA: 2 Study Date: 07/05/2017 Pt. Type: Inpatie nt Tape: Referring: Daphne Shahid ([id number]) Referring: MANDA ALCANTAR Reading: Blade Preston ([id number]) Repossessor: Dayami Paula BA, [facility] Diagnosis: [...] MV E-wave Vmax 0.8 m/sec MV deceleration [id number] msec MV A-wave Vmax 0.8 m/sec MV [...] Hypokinetic Mid-Posterolateral Hypokinetic Mid-Inferior Akinetic Mid-Inferoseptal Hypokinetic Aspen-Septal Akinetic Aspen-Anterior Hypokinetic Aspen-Lateral Hypokinetic Aspen-Inferior Akinetic Aspen-Tip Akinetic This report has been electronically sign ed by: _ Blade Preston MD 07/06/2017 08:53:15 Images reviewed and interpretation verif ied [facility] Cardiac Ultrasound Laboratory Daphne Shahid MD ECHO ORDERABLES Differential, Automated (07/05/2017 4:55 PM EST) athologist Signature Neutrophils % 77.0 % [facility] LABORATORY Neutr Abs (ANC) 5.26 1.70 - [facility] 6.10 [facility] x10(3[facility] Lymphocytes % 13.3 % [facility] Lymphocytes Abs 0.9 0.9 - 3.2 [facility] x10(3)/[facility] LABORATORY Monocytes % 8.2 % [facility] Monocyte Abs 0.6 0.3 - 0.9 [facility] x10(3)/[facility] LABORATORY Eosinophils % 0.7 % [facility] Eosinophils Abs 0.0 0.0 - 0.4 [facility] x10(3)/[facility] LABORATORY Basophils % 0.4 % [facility] Basophils Abs 0.0 0.0 - 0.1 [facility] x10(3)/[facility] LABORATORY Immature Gran % 0.40 % BARBARA [...] Abs 0.03 0.00 - 0.04 x10(3)/[facility] LABOR[facility] Specimen Anatomical Collection Method Collection Time Receive d Time (Source) Location / / Volume Laterality Blood specimen 07/05/2017 4:55 PM 017 5:24 (specimen) EST PM EST Resulting Agency Comment Spec In Lab Daphne Shahid MD HEMATOLOGY ORDERABLES Performing Organization Address City/State/[place] [address] (ABNORMAL) Hemogram (07/05/2017 4:55 PM EST) Analysis Performed At Patho logist Time Signature WBC 6.8 4.0 - 9.5 [facility] x10(3)/[facility] LABORATORY RBC 4.67 4.58 - [facility] 5.54 [facility] x10(6)/[facility] LAB[facility]ORY Hemoglobin 14.0 13.7 - [facility] 16.5 gm/dL [facility]ORY Hematocrit 41.0 40.5 - [facility] 48.5 % [facility] MCV 87.8 82.9 - [facility] 93.1 [facility] LABORATORY MCH 30.0 27.5 - [place] 32.[address] [facility]OR[facility] MCHC 34.1 32.0 - [place] 35.7 gm/dL [facility] Platelets 197 145 - 357 [facility] x10(3)/[facility] LABORATORY RDWSD 46.4 (H) 36.0 - [place] 45.0 [facility] LABORATORY RDWCV 14.5 (H) 11.4 - [facility] 13.8 % [facility] LABOR[facility]ORY MPV 9.7 7.6 - 12.9 [facility] LABORATORY nRBC % Auto 0.0 % [facility] nRBC Abs Auto 0.000 0.000 - [facility] 0.000 [facility] x10(3)/[facility] LABORATORY Specimen Anatomical Collection Method Collection Time Receive d Time (Source) Location / / Volume Laterality Blood specimen 07/05/2017 4:55 PM 017 5:24 (specimen) EST PM EST Resulting Agency Comment Spec In Lab Daphne Shahid MD HEMATOLOGY ORDERABLES Performing Organization Address City/State/[place] [address] (ABNORMAL) Cardiac Enzymes (LEB/CGP) (07/05/2017 4:55 PM EST) athologist Signature Troponin-T 1.69 (H) 0.00 - [facility] 0.00 ng/mL [facility] Comment: The 99th percentile for [...] additional sample may be indicated. Reference: Third [place] Definition of Myocardial Infarction. Journal of the [...] Shahid MD CHEMISTRY ORDERABLES Performing Organization Address City/[facility]/ZIP Code Phon e Number [address] (ABNORMAL) pro-Brain Natriuretic Peptide (07/05/2017 4:55 PM EST) athologist Signature ProBNP 1,598 (H) <=125 [facility] pg/mL [facility]OR[facility]ORY Specimen Anatomical Collection Method Collection Time Receive d Time (Source) Location / / Volume Laterality Blood specimen 07/05/2017 4:55 PM 017 5:24 (specimen) EST PM EST Resulting Agency Comment Spec In Lab Daphne Shahid MD CHEMISTRY ORDERABLES Performing Organization Address City/[facility]/ZIP Code Phon e Number [address] Magnesium (07/05/2017 4:55 PM EST) athologist Signature Magnesium 0.78 0.69 - 1.07 [facility] mmol/L [facility] LABOR[facility]ORY Specimen Anatomical Collection Method Collection Time Receive d Time (Source) Location / / Volume Laterality Blood specimen 07/05/2017 4:55 PM 017 5:24 (specimen) EST PM EST Resulting Agency Comment Spec In Lab Daphne Shahid MD CHEMISTRY ORDERABLES Performing Organization Address City/[facility]/ZIP [facility] [place] [address] (ABNORMAL) Basic Metabolic Panel (non-fasting) (07/05/2017 4:55 PM EST) P athologist Signature Glucose Lvl 230 (H) 65 - 199 [facility] mg/dL [facility] LABORATORY [...] or in patients with acute kidney failure. [email or web address] [email or web address] OKLA[facility] CITYnkf Specimen Anatomical Collection Method Collection Time Receive d Time (Source) Location / / Volume Laterality Blood specimen 07/05/2017 4:55 PM 017 5:24 (specimen) EST PM EST Resulting Agency Comment Spec In Lab Daphne Shahid MD CHEMISTRY ORDERABLES Performing Organization Address City/[facility]/[place] [address] (ABNORMAL) APTT (07/05/2017 4:55 [...] Organization Address City/State/[place] [address] (ABNORMAL) POCT Glucose (07/05/2017 4:53 PM EST) P athologist Signature POC Glucose 208 (H) 65 - 199 [facility] mg/dL [facility] LABORATORY [...] - [facility]/[place] [address] EKG 12 Lead (07/05/2017 4:32 PM EST) Component Value Ref Range Test Analysis Performed Pathologis t Method Time At Signature Ventricular rate 97 BPM MUSE SYSTEM Atrial Rate 97 BPM MUSE SYSTEM P-R Interval 148 ms MUSE SYSTEM QRS Duration 96 ms MUSE SYSTEM Q-T Interval 364 ms MUSE SYSTEM QTC Calculated 462 ms MUSE SYSTEM (Bezet) Calculated P Nelson 48 degrees MUSE SYSTEM Calculated R Nelson -33 degrees MUSE SYSTEM Calculated T Nelson 98 degrees MUSE SYSTEM INTERPRETATION Normal sinus [...]
Routine documented in this encounter Care Teams Mattress Maker Relationship Specialty Start Date End Date Lovely Vicente MD PCP - General 04/16/[address] [place] [address] [address] [place] [address] documented as of this encounter
--- OUTSIDE RECORDS SUMMARY | 2022-04-10 09:05 | XMS_ITS | Encounter Summary ---
:1945 Author Organization [facility] [place] [address] Care Team Providers Name Role Phone Lovely Vicente MD Primary Care Provider Encounter Details Date Type Department Care Team Description 11/28/2016 Telephone Dermatology at [facility] Rigoberto Garcia III, [address] [place] [address] [facility] [phone] [facility] SIMÓN-DERMAT [place], [place] [address] (Wo rk) Social History Tobacco [...] provider. Rigoberto Garcia MD Section of Dermatology [facility] documented in this encounter Plan of Treatment Upcoming Encounters Date Type Specialty Care Team Description 05/28/2022 Appointment Cardiology Zulma Dolan MD [facility] [address] [place], [place] [address] (Wo rk) 05/28/2022 Laboratory Appointment Lab 05/28/2022 Office Visit Cardiology Zulma Dolan MD [facility] [place] [address] Liz Poole PA [facility] [place] [address] 06/10/2022 Office Visit Dermatology Laura Scherer MD [facility] DR TEJA MARIE-DERMAT [place], [place] [address] (Wo rk) documented as of this encounter Visit Diagnoses Not on filedocumented in this encounter Care Teams Theater Company Producer Relationship Specialty Start Date End Date Lovely Vicente MD PCP - General 04/16/[address] [place] [address] documented as of this encounter
--- OUTSIDE RECORDS SUMMARY | 2022-04-10 09:05 | XMS_ITS | Encounter Summary ---
:1945 Author Organization [facility] [place] [address] Care Team Providers Name Role Phone Lovely Vicente MD Primary Care Provider Reason for Visit Reason Comments Nevus excision dysplastic nevus mi d upper abdomen Encounter Details Date Type Department Care Team Description 12/03/2016 Procedure visit Dermatology at [facility] Dysplastic nevus of Road MD Adrián trunk [address] [facility] [address] [facility] [phone] [address] [place] [address] Social History Tobacco Use Types Packs/Day Years [...] Halima Cordero MD during the day at [phone] Nurse: Mira [phone] Amy After 5 PM and on weekends, please call the hospital number , and ask for the Dehydrogenation Operator employee communications coordinator. documented in this encounter Progress Notes Halima Cordero MD - 12/10/2016 5:41 PM EDT Gwendolyn, Excision shows scar, there is no residual of the severely dysplastic nevus. Please notify patient and check on wound healing. Thank you, DTB Halima Cordero MD - 12/03/2016 3:00 PM EDT Images from the original note were not included. Dermatology Procedure note: Attending: Halima Cordero MD Heading Maker: Mira James LPN Referring MD: Rigoberto [...] to call the clinic or the on-call oil burner mechanic over the weekend. ??? Name of Procedure? [...] Zulma Dolan MD [facility] [place], [place] [address] (Wo rk) 05/28/2022 Laboratory Appointment Lab 05/28/2022 Office Visit Cardiology Zulma Dolan MD [facility] [place] [address] Liz Poole PA [facility] [address] 06/10/2022 Office Visit Dermatology Laura Scherer MD [facility] DR TEJA GR-DERMAT [place], [place] [address] (Wo rk) documented as of [...] Component Value Ref Test Analysis Performed At [facility] Method Time Signature Surgical [id number] ?Location: [facility] The signing pathologist has (i) examined the [...] Clinical Diagnosis: Dysplastic nevus, see previous pathology [id number] SPECIMEN PROCESSING A - Labeled/Fixative: Mid-upper abdomen, [...] Organization Address City/State/ZIP [place] [address] Specimen to Pathology (NON-OR) (12/03/2016 3:31 PM EDT) Specimen Anatomical Collection Method Collection Time Receive d Time (Source) Location / / Volume Laterality AP Specimen 12/03/2016 3:31 PM 7 6:27 EDT PM EDT Narrative [facility] - 12/03/2016 6:27 PM EDT Specimen requisition ordered. ??Separate Pathology report to follow Resulting Agency Comment Spec In Lab Halima Cordero MD PATHOLOGY/CYTOLOGY ORDERABLE S Performing Organization Address City/State/ZIP [place] [address] documented in this encounter Visit Diagnoses Diagnosis Dysplastic nevus of trunk Benign neoplasm of skin of trunk, except scrotum documented in this encounter Care Teams Resident Care Manager Relationship Specialty Start Date End Date Lovely Vicente MD PCP - General 04/16/[address] [place] [address] documented as of this encounter
--- OUTSIDE RECORDS SUMMARY | 2022-04-10 09:05 | XMS_ITS | Encounter Summary ---
:1945 Author Organization [facility] [place] [address] Care Team Providers Name Role Phone Lovely Vicente MD Primary Care Provider Reason for Visit Reason Comments Skin Lesion Encounter Details Date Type Department Care Team Description 11/24/2016 [facility] eoplasm of uncertain behavior of skin; Road IIIMD Pigmented skin lesion of uncertain natur e; [address] [facility] [place] of [place] [address] [facility] SIMÓN-DERMATOLGY [place], [place] [address] Social History Tobacco Use Types [...] or concerns, please call the office at [phone]. If it is after 5PM, or a holiday or weekend, please call [phone] and ask for the End Lathe Operator on-call. documented in this encounter Progress [...] 71 y.o. year old male.Established patient of [facility]. Last seen 06/05/16. Here today for new [...] Zulma Dolan MD [facility] er [place] [address] (Wo rk) 05/28/2022 Laboratory Appointment Lab 05/28/2022 Office Visit Cardiology Zulma Dolan MD [facility] [place] [address] Liz Poole PA [facility] [place] [address] 06/10/2022 Office Visit Dermatology Laura Scherer MD [facility] ER DR [address]-DERMAT [place], [place] [address] (Wo rk) documented as [...] Performed At [facility] gist Range Method Time Signature Surgical [id number] ?Location: [facility] Report The signing pathologist has [...] Organization Address City/State/[place] [address] Specimen to Pathology (NON-OR) [...] Organization Address City/State/[place] [address] documented in this encounter Visit Diagnoses Diagnosis Neoplasm of uncertain behavior of skin Pigmented skin lesion of uncertain natur e History of melanoma Personal history of malignant melanoma o f skin documented in this encounter Care Teams Oil Rig Roughneck Relationship Specialty Start Date End Date Lovely Vicente MD PCP - General 04/16/[address] [place] [address] documented as of this encounter
--- OUTSIDE RECORDS SUMMARY | 2022-04-10 09:05 | XMS_ITS | Encounter Summary ---
:1945 Author Organization [facility] [place] [address] Care Team Providers Name Role Phone Lovely Vicente MD Primary Care Provider Encounter Details Date Type Department Care Team Description 07/05/2017 Telephone Cardiology Kim Galindo MD [facility] [place] [address] CARDIOLOGY DEPT [phone] [place], [place] [address] (Wo rk) Social History Tobacco [...] infarct and elevated troponin, transport patient to [facility] for cath this afternoon and arrhythmia monitoring. Kim Galindo MD Slitter Helper documented in this encounter Plan of Treatment Upcoming Encounters Date Type Specialty Care Team Description 05/28/2022 Appointment Cardiology Zulma Dolan MD [facility] [address] [place], [place] [address] (Wo rk) 05/28/2022 Laboratory Appointment Lab 05/28/2022 Office Visit Cardiology Zulma Dolan MD [facility] [place] [address] Liz Poole PA [facility] [place] [address] 06/10/2022 Office Visit Dermatology Laura Scherer MD [facility] DR TEJA GR-DERMAT [place], [place] [address] (Wo rk) documented as of this encounter Visit Diagnoses Not on filedocumented in this encounter Care Teams Judge Relationship Specialty Start Date End Date Lovely Vicente MD PCP - General 04/16/[address] [place] [address] documented as of this encounter
--- OUTSIDE RECORDS SUMMARY | 2022-04-10 09:05 | XMS_ITS | Encounter Summary ---
:1945 Author Organization [facility] [place] [address] Care Team Providers Name Role Phone Lovely Vicente MD Primary Care Provider Encounter Details Date Type Department Care Team Description 07/10/2016 Telephone Dermatology at [facility] Rigoberto White III, [address] [place] [address] [facility] [phone] [facility] MARIE-DERMAT [place], [place] [address] (Wo rk) Social History [...] Zulma Dolan MD [facility] [address] [place], [place] [address] (Wo rk) 05/28/2022 Laboratory Appointment Lab 05/28/2022 Office Visit Cardiology Zulma Dolan MD [facility] [place] [address] Liz Poole PA [facility] [place] [address] 06/10/2022 Office Visit Dermatology Laura Scherer MD [facility] [address] TEJA MARIE-DERMAT [place], [place] [address] (Wo rk) documented as of this encounter Visit Diagnoses Not on filedocumented in this encounter Care Teams Microbiological Lab Technician Relationship Specialty Start Date End Date Lovely Vicente MD PCP - General 04/16/15 [facility] [address] [place] [address] documented as of this encounter
--- OUTSIDE RECORDS SUMMARY | 2022-04-10 09:05 | XMS_ITS | Encounter Summary ---
:1945 Author Organization [facility] [place] [address] Care Team Providers Name Role Phone Lovely Vicente MD Primary Care Provider Encounter Details Date Type Department Care Team Description 09/03/2016 Office Visit Endocrinology at [facility] Maria Ines Stallings of [facility] [place] [address] [place] [address] ENDOCRINOLOGY DEPT [place], [place] [address] Social History Tobacco Use [...] to his magnesium pill. LUZ PRESCOTT MD Product Support Techniciancompensation and benefits analyst Section of Endocrinology [facility] Luz Prescott MD - 09/03/2016 11:30 AM [...] sonographic evidence of recurrence. LUZ PRESCOTT MD Product Support Techniciancompensation and benefits analyst Section of Endocrinology [facility] documented in this encounter Plan of Treatment Upcoming Encounters Date Type Specialty Care Team Description 05/28/2022 Appointment Cardiology Zulma Dolan MD [facility] [place], [place] [address] (Wo rk) 05/28/2022 Laboratory Appointment Lab 05/28/2022 Office Visit Cardiology Zulma Dolan MD [facility] [place] [address] Liz Poole PA [facility] [place] [address] 06/10/2022 Office Visit Dermatology Laura Scherer MD [facility] DR TE[address] GR-DERMAT [place], [place] [address] (Wo rk) documented as of this encounter Results Thyroglobulin (09/07/2017 2:41 PM EST) P athologist Signature Thyroglobulin 1.4 <=54.9 KATALINA RYAN ng/mL [facility] Comment: Thyroglobulin levels may be unreliable a nd falsely low in TgAb positive samples (TgAb <20 is consistent with TgAb negati vity). If Tg Antibodies are present an alternative Tg assay performed via mass spectrometry may be indicated. ??A clinical cutoff of <2.0 ng/ml should be used for athyrotic individuals. Pediatric reference ranges have not been established. Assay performed using the Mpax Immulite T g immunometric assay (lowest detection [...] Prescott MD CHEMISTRY ORDERABLES Performing Organization Address City/[facility]/ZIP Code Phon e Number [address] TSH (09/07/2017 2:41 PM EST) athologist Signature TSH 3.93 0.27 - 4.20 [facility] mlU/ML [facility] Specimen Anatomical Collection Method Collection Time Receive d Time (Source) Location / / Volume Laterality Blood specimen 09/07/2017 2:41 PM 018 2:46 (specimen) EST PM EST Resulting Agency Comment Spec In Lab Luz Prescott MD CHEMISTRY ORDERABLES Performing Organization Address City/[facility] Phon e Number [address] Thyroglobulin (09/03/2016 11:07 AM EST) athologist Signature Thyroglobulin <0.4 <=54.9 [facility] ng/mL [facility] Comment: Interpret with caution. Tg [...] than those obtained with T4 withdrawal protocol (Castaner BR et al. J Clin Endo Metab 1999;84:3912-5936). Assay performed using the DPC Immulite T [...] Prescott MD CHEMISTRY ORDERABLES Performing Organization Address City/[facility]/ZIP Code Phon e Number [address] TSH (09/03/2016 11:07 AM EST) P athologist Signature TSH 3.01 0.27 - 4.20 [facility] mcIU/mL [facility] Specimen Anatomical Collection Method Collection Time Receive d Time (Source) Location / / Volume Laterality Blood specimen 09/03/2016 11:07 7 (specimen) AM EST 11:22 AM EST Resulting Agency Comment Spec In Lab Luz Prescott MD CHEMISTRY ORDERABLES Performing Organization Address City/[facility]/[place] [address] documented in this encounter Visit Diagnoses Diagnosis Hx of papillary thyroid carcinoma Personal history of malignant neoplasm o f thyroid documented in this encounter Care Teams Supervisor Orchard Relationship Specialty Start Date End Date Lovely Vicente MD PCP - General 04/16/[address] [place] [address] documented as of this encounter
--- OUTSIDE RECORDS SUMMARY | 2022-04-10 09:05 | XMS_ITS | Encounter Summary ---
:1945 [place] [address] Care Team Providers Name Role Phone Lovely Vicente MD Primary Care Provider Reason for Visit Auth/Cert Specialty Diagnoses / Procedures Referred By Contact Refer red To Contact Diagnoses STEMI (ST elevation myocardial infarction) NSTEMI STEMI Procedures CARDIAC CATHETERIZATION NAYE IPI Referral ID Status Reason Start Date Expiration Date Visits Requ ested Visits Authorized [id number] 1 1 Encounter Details Date Type Department Care Team Description 07/05/2017 Surgery Windows 7 Deployment Lead Jet Guan, CARDIAC CATHETERIZATION [facility] [place] [address] CARDIOLOGY DEPT. [phone] [place], [place] 0[address] (Wo rk) Social History Tobacco [...] this encounter Discharge Summaries Martha Teague S, RESEARCH ELECTRICIAN - 07/14/2017 9:38 AM EST Inpatient - Discharge Summary Patient Name: Gregory Hoang Patient Age: 72 y.o. Birthdate: 1945 Language: Brazilian Race: White Ethnicity: Not nor Admit Date: [...] 1:20p Patient to follow-up with Director Of Student Financial Services/heart failure team in one week. An appointment will be made for you. You may call [phone] Patient to follow-up with Cardiac Surgery, Dr. Yuan Webber, in ~ 4 weeks with CXR, EKG. Inpatient Provider Contact Information: [facility] [place] of [place] [facility] [address] FAX [phone] Discharge Diagnoses (Hospital Problems) Primary Diagnoses: CAD [...] SETUP performed by Manny Mcknight MD at [facility] OR ??? PRO CABG, ARTERIAL, SINGLE N/A 07/07/2017 @CABG, USING ARTERIAL GRAFT;SINGLE ARTERIAL GRAFT (WRVU 33.75) performed by Yuan Webber MD at [facility] OR ??? PRO CABG, ARTERY-VEIN, TWO N/A 07/07/2017 @CABG, TWO VENOUS GRAFTS & ARTERIAL GRAFT (WRVU 7.93) performed by Yuan Webber MD at [facility] OR ??? PRO COLONOSCOPY, REMV LESN, SNARE 01/16/2014 COLONOSCOPY, POLYPECTOMY, REMOVAL LESION BY SNARE performed by Nohemi Jaimes MD at [facility] ENDOSCOPY ??? PRO ENDOSCOPY W/VIDEO-ASST VEIN HARVEST, CABG Right 07/07/2017 ENDOSCOPIC HARVEST VEIN(S) FOR CABG (WRVU 0.31) performed by Yuan Webber MD at [facility] OR ??? PRO THYROIDECTOMY 03/28/2013 THYROIDECTOMY, TOTAL OR COMPLETE performed by Manny Mcknight MD at [facility] OR Prior To Admission Medications Prescriptions Prior to Admission Medication Sig Dispense Refill Last Dose ??? levothyroxine (SYNTHROID) 175 mcg Tablet Take 1 tablet by mouth daily. 90 tablet 3 07/05/2017 [id number] ??? ascorbic acid, vitamin C, (VITAMIN C) [...] Hospital Course: Gregory Hoang was admitted to [facility] on 07/05/2017 via the Cardiology Service. During his hospital course, he was taken emergently to the labor relations director for an ongoing STEMI. An IABP [...] not take or discontinue any prescription or dwts-vvg-qvlqrkr medications without asking your doctor or pharmacist [...] Yuan Webber and/or the Cardiac Surgery Physician Barrel Marker Team may be reached at . Weight: [...] Dr. Yuan Webber. You may use a [place] Track or treadmill but avoid any pulling [...] friends, go to a movie, go to orthodoxy, etc. Heavy activities: No hunting, skiing, jogging, snow shoveling, snowmobiling, lawn mowing, swimming, golf or tennis until after your return appointment with the surgeon. Do not ride motorcycles, Supersonic tractors or horses. Avoid the use of [...] should resume a low fat, low cholesterol, [place] Heart Association Diet/Diabetic diet. Driving: No driving [...] 1:20p Patient to follow-up with Director Of Student Financial Services/heart failure team in one week. Appointment will be made for you. You may call [phone] Patient to follow-up with Cardiac Surgery, Dr. Yuan Webber, in ~ 4 weeks with CXR, EKG. Cardiac Rehabilitation: Gregory Hoang was seen today regarding participation in the outpatient Phase 2 Cardiac Rehabilitation at [facility]. The patient agrees to a referral to this program. The referral will be sent at discharge and the patient should be contacted by the Program within 1- 2 weeks from discharge. ?? Future Appointments and Orders Future Appointments Provider Department Dept Phone 09/07/2017 3:00 PM LAB, THREE L Lab 3L [facility] [phone] 09/07/2017 4:00 PM Luz Prescott MD Endocrinology at [place] [phone] Future Orders Complete By Expires EKG 12 Lead [EKG1 Custom] 08/14/2017 02/13/2018 Process Instructions: Scheduling Instructions: Questions: Which DH location will this be performed?: [place] Is a rhythm strip needed?: No If EKG Reason is Pre-op Evaluation, indicate diagnosis for surgery.: XR Chest PA & Lateral (Generic) [[id number] Custom] 08/14/2017 02/13/2018 Process Instructions: Scheduling Instructions: Questions: Where will study be performed?: [place] [facility] Portable exam?: Reason for exam and clinical history: CABG x 3 Other pertinent information: Stat read required?: Date of injury if applicable: Requested Time: Referral to Cardiac Rehab [[id number] Custom] As directed Process Instructions: If no progress note charted, please enter Clinical details in comments. Scheduling Instructions: Questions: My question or request is: s/p CABG. Cardiac rehab at [facility] Referral to Home Health - at DISCHARGE [[id number] CPT(R)] As directed Process Instructions: Scheduling Instructions: Comments: DOCUMENTATION FOR VNA SERVICES (INCLUDING THOSE PATIENTS WITH MEDICARE COVERAGE REQUIRING HOME VNA SERVICES AND/OR HOSPICE SERVICES) PATIENT'S LOCATION: Gregory Hoang [address] [place] [address] [place] [address] (home) Telephone Information: Bowling [employer] Skating Front Desk Clerk's Name: self In discussion with the attending physician, it is certified that this patient is under their care and that they, or a Nurse Practitioner, or Physician Barrel Marker who is working directly with them, [...] [employer] ([employer] [facility] [place] [employer]is in [place] PHONE: [phone] FAX: [phone] RN orders: Cardiopulmonary assessment, incisional assessment, assess vital signs, assessment of rehab progress, medication management and effectiveness, home safety evaluation. Please draw INR if indicated and send result to:Dr Vicente [phone] PT ORDERS: Continue rehab for endurance, gait stability and strength with mobility and transfers. Home safety evaluation. Home exercise program if appropriate. Start of Care Date:24-48 hours after discharge SPECIAL INSTRUCTIONS: For any follow up questions, needs, or issues please call the Cardiac Surgery Office at [phone] FOR MEDICARE ONLY: (please delete this section [...] OR AFTER 07/17/2017 Signed: Martha Teague APRN [facility] Section of [place]iac [facility] [address] FAX [phone] Date: 07/14/2017 CC: MD Ivania Cr Betsy, PA [address] [place] [phone] documented in this encounter Discharge Instructions Discharge [...] ongoing outpatient anticoagulation management: ?? Provider/Team/Clinic: Dr Vicenet ? 7. If you have not received [...] not take or discontinue any prescription or slhr-yjv-eqkrfvp medications without asking your doctor or pharmacist [...] Yuan Webber and/or the Cardiac Surgery Physician Barrel Marker Team may be reached at . ?? [...] Dr. Yuan Webber. You may use a [place] Track or treadmill but avoid any pulling [...] friends, go to a movie, go to orthodoxy, etc. ?? Heavy activities: No hunting, skiing, jogging, snow shoveling, snowmobiling, lawn mowing, swimming, golf or tennis until after your return appointment with the surgeon. Do not ride motorcycles, Nuevora's tractors or horses. Avoid the use of [...] should resume a low fat, low cholesterol, [place] Heart Association Diet/Diabetic diet. ?? Driving: No [...] ?? Patient to follow-up with Director Of Student Financial Services/heart failure team in one week. An appointment has been made for you, you can call [phone] ?? Patient to follow-up with Cardiac Surgery, Dr. Yuan Webber, in ~ 4 weeks with CXR, EKG. ? Cardiac Rehabilitation: Gregory Hoang??was seen today regarding participation in the outpatient Phase 2 Cardiac Rehabilitation at [facility]. ?? The patient agrees to a referral to this program.? The referral will be sent at discharge and the patient should be contacted by the Program within 1- 2 weeks from discharge. ? Future Appointments and Orders Future Appointments Provider Department Dept Phone ?? 09/07/2017 3:00 PM LAB, THREE L Lab 3L [facility] [phone] ?? 09/07/2017 4:00 PM Luz Prescott MD Endocrinology at [place] [phone] Future Orders Complete By Expires ?? EKG 12 Lead [EKG1 Custom] 08/14/2017 02/13/2018 ?? Process Instructions: ? Scheduling Instructions: ? Questions: ? Which location will this be performed?: [place] ?? Is a rhythm strip needed?: No ?? If EKG Reason is Pre-op Evaluation, indicate diagnosis for surgery.: ?? XR Chest PA & Lateral (Generic) [[id number] Custom] 08/14/2017 02/13/2018 ?? Process Instructions: ? Scheduling Instructions: ? Questions: ? Where will study be performed?: [facility] ?? Portable exam?: ?? Reason for exam and clinical history: CABG x 3 ?? Other pertinent information: ?? Stat read required?: ?? Date of injury if applicable: ?? Requested Time: ?? Referral to Cardiac Rehab [[id number] Custom] As directed ? Process Instructions: ?? If no progress note charted, please enter Clinical details in comments. ?? Scheduling Instructions: ? Questions: ? My question or request is: s/p CABG. Cardiac rehab at [facility] ? Arrangements for VNA/home care: [...] referral to [facility] [employer]. PHONE: [phone] FAX: [phone] Expected date of discharge: 07/14 Referral routed to the Senior Engineering Team Leader for matching with agency/vendor and to [place] [facility] [place] Pager [phone] minutes of this 35 minute visit [...] [employer] ([facility] [employer] [place] [employer] PHONE: [phone] FAX: [phone]. Expected date of discharge: 07/14/17 Referral routed to the Senior Engineering Team Leader for matching with agency/vendor and to [...] hours. If BG remains greater than 240, lgyzqz16 units (no more than three times) &??call [...] [facility] [place] Pager [phone] minutes of this 25 minute visit [...] of infiltration/extravasation Discussed plan of care with ASSEMBLER DRY CELL AND BATTERY and RN. Elevate exrtemity and apply intermittent Warm compresses. Name of MD contacted Dr. Shaw Brown 07/13/2017 @ 0655 Name of RN contacted Ale Rangel RN Name of Pharmacist if consulted NA Name of Plastics MD ( if consulted) NA (Mandatory photo for infiltrations/ extravasations scoring a stage 2 or greater, but recommended forstage 1)( include measuring tape and identifier in the photo) MEDICAL IMAGING TECHNOLOGIST CARING FOR THIS PATIENT WILL CONTINUE TO [...] measuring tape and identifier in the photo) MEDICAL IMAGING TECHNOLOGIST CARING FOR THIS PATIENT WILL CONTINUE TO [...] regard to both infiltrates addressed by this communications writer.All of Mr. Hoang's responses were entirely appropriate. Images of infiltrates attached here. Martha Sharp APRN - 07/13/2017 8:01 AM EST Cardiac Surgery Progress Note: ID: [id number] 72 year old male POD#6 s/p CABGx3 [...] Office of Care Management letter from the [employer] pertaining to rehab referrals. I have also provided a letter describing our affiliations within the [facility] and educated them about their [...] date of discharge: 07/14 Note routed to Senior Engineering Team Leader who will communicate referrals to facilities [...] hours. If BG remains greater than 240, oregwk55 units (no more than three times) & [...] hours. If BG remains greater than 240, yalbxe61 units (no more than three times) & call for new basal insulin orders. ??If less than 240 after two hours, give no insulin and resume prior schedule. Will continue to follow Katerin Azul APRN [facility] Diabetes Management Pager [phone] minutes of this 35 minute visit was spent with the patient in counseling on diabetes and treatment plan, reviewing all glucose and insulin data as well as relevant laboratory results with the patient, and coordination of care on the inpatient unit including nursing and primary team. Makayla Stevenson APRN - 07/12/2017 9:52 AM EST Cardiac Surgery Progress Note: ID: [id number] 72 year old male POD#5 s/p CABGx3 [...] 7:18 PM EST Patient arrived from [facility]. VSS. MSI dressing pulled off [...] AM EST Cardiac Surgery Progress Note: ID: [id number] 72 year old male POD#4 s/p CABGx3 [...] hours. If BG remains greater than 240, haofuf13 units (no more than three times) & [...] AM EST Cardiac Surgery Progress Note: ID: [id number] 72 year old male POD#3 s/p CABGx3 [...] Gas) No results found for: PHART, PO2ART, HNX6IMZ Assessment/Plan: 72 year old male POD#3 s/p [...] Mami Thao - 07/09/2017 6:29 PM EST Pinking Sewing Machine Operator Encounter Note Patient Name: Gregory Hoang : [id number] MR#: [id number] Admit Date: 07/05/2017 4:20 PM Hospital Day 4 days Narrative: Patient was sitting in chair, hugging heart pillow, opened his eyes, nodding to come into room Assessment: Patient was sleepy. Intervention and Outcome: Introduced dog control officer services and patient reached his hand out in appreciation. Follow-up: Pinking Sewing Machine Operator remains available for support. Time [...] 07/09/2017 10:45 AM EST Report given to bellstaff to cover care Maddison Cee PA - 07/09/2017 9:00 AM EST Cardiac Surgery Progress Note: ID: [id number] 72 year old male POD#2 s/p CABGx3 [...] Attending Surgeon on rounds. Signed: STEPHANIE Iqbal [facility] Section of Cardiac Surgery Date: 07/09/2017 [...] when IABP d/c'ed. Gretchen Carolina, PT Pager [phone] Maddison Cee PA - 07/08/2017 11:27 AM EST Cardiac Surgery Progress Note: ID: [id number] 72 year old male POD#1 s/p CABGx3 [...] Attending Surgeon on rounds. Signed: STEPHANIE Iqbal [facility] Section of Cardiac Surgery Date: 07/08/2017 [...] in place in R femoral. No hematoma. ASPARAGUS CUTTER- Intact Psych- Anxious Skin- Dry, no peripheral [...] supporting interventions and documentation on the unit. DAPHEN SHAHID MD 07/07/2017 Dinorah Main MD - [...] intact. IABP in place in R femoral. ASPARAGUS CUTTER- Intact Psych- Anxious Skin- Dry, no peripheral [...] note for details. DAPHNE SHAHID MD Pager [phone] Jet Mckenna MD - 07/05/2017 6:48 PM EST Preliminary Cardiac Catheterization Procedure Note: Procedure(s) performed: Left heart cath, IABP insertion Access: Right CUT OUT STITCHER-->8fr IABP A time-out was conducted prior [...] gtt maintained. Pt transferred to labor relations director. documented in this encounter H&P Notes Daphne Shahid MD - 07/05/2017 6:08 PM EST CARDIOLOGY HISTORY & PHYSICAL EXAM Date of Admission: 07/05/2017 ( Hospital Day 0 days ) Responsible Attending: Daphne Shahid MD PCP: Lovely Vicente MD PCP#: [phone] Patient Active Problem List Diagnosis Code ??? [...] with heparin drip and transferred to [facility]. While there, continued sob, question of chest pain. Stat TTE showing WMA diffusely and EF around 20%. No significant valvular disease. Taken to the labor relations director urgently for ongoing STEMI. [facility] Labs: INR 1.0 WBC 5.88 [...] - s/p lasix in the labor relations director, redose to aim net neg 1L [...] Medicine, PGY-2 Cardiology S1, Team Pager # [phone] CARDIOLOGY ATTENDING NOTE Patient: Gregory Hoang Date [...] amenable for PCI. DAPHNE SHAHID MD Pager [phone] documented in this encounter Miscellaneous Notes Consult Note - Daphne Shahid MD - 07/14/2017 11:46 AM EST Heart Failure Service Inpatient Consult Note Gregory Hoang Date of : 1945 Age: 72 y.o. Today's date: 07/14/17 PCP: Lovely Vicente MD FURRIER DESIGNER: None Place of Service: [facility] Reason for Consult: Dr. Webber has requested [...] SETUP performed by Manny Mcknight MD at [facility] OR ??? PRO CABG, ARTERIAL, SINGLE N/A 07/07/2017 @CABG, USING ARTERIAL GRAFT;SINGLE ARTERIAL GRAFT (WRVU 33.75) performed by Yuan Webber MD at [facility] OR ??? PRO CABG, ARTERY-VEIN, TWO N/A 07/07/2017 @CABG, TWO VENOUS GRAFTS & ARTERIAL GRAFT (WRVU 7.93) performed by Yuan Webber MD at [facility] OR ??? PRO COLONOSCOPY, REMV LESN, SNARE 01/16/2014 COLONOSCOPY, POLYPECTOMY, REMOVAL LESION BY SNARE performed by Nohemi Jaimes MD at [facility] ENDOSCOPY ??? PRO ENDOSCOPY W/VIDEO-ASST VEIN HARVEST, CABG Right 07/07/2017 ENDOSCOPIC HARVEST VEIN(S) FOR CABG (WRVU 0.31) performed by Yuan Webber MD at [facility] OR ??? PRO THYROIDECTOMY 03/28/2013 THYROIDECTOMY, TOTAL OR COMPLETE performed by Manny Mcknight MD at [facility] Outpt Meds: Current Outpatient Prescriptions Medication [...] following studies: EKG 07/14/17: NSR 75 bpm, COUNTER MAKER anterior infarct, LAD CXR 07/11/17: FINDINGS: Sternotomy wires. The patient has been extubated, left chest tube removed, and [place]-Suzi catheter removed since the 07/07/2017 study. [...] was discussed with Zehra. Jaden Kelley MD Miniature Train Driver Pager [phone] CARDIOLOGY ATTENDING NOTE Patient: Gregory Hoang Date [...] heart failure clinic. DAPHNE SHAHID MD Pager [phone] Plan of Care - Alden Chavarria PTA [...] home with assist Alden Chavarria PTA Pager: [phone] Inpatient Physical Therapy Problem: Acute Rehab Services [...] sit/sit to supine -- Bed Mobility Goal, Grimes Level supervision required -- Bed Mobility Goal, [...] - 3 days -- Gait Training Goal, [place] Level supervision required -- Gait Training Goal, [...] days -- Transfer Training Goal, Activity Type odq-ba-uuhwc/rkbst-lj-kai;evy-zq-seovx/plogr-gq-eia;toilet -- Transfer Train Goal, [place] Level supervision required -- Transfer Training Goal, [...] keeping present for 2 days per family. Cushion Former noted of frustrations, house keeping sent to room. Patient offered showered twice, refused. at bedside, frustrated that shower not complete, informed that patient had refused several times. requesting to see FLAT LOCKER, paged sent to Martha, will come to bedside (middle of consult). not willing to wait, Martha notified that family had gone home. Encouraged to come for morning rounds a t 8am. Diabetes team at bedside - insulin adjustments made. Call cabello in reach. Continue to monitor. PLAN MOVING FORWARD: Ambulate, dressing changes BID, Please change drsg at 4am per Martha FLAT LOCKER request. INDIVIDUALIZED FALL PREVENTION INTERVENTIONS: Patient-specific fall [...] levels on the lower side, 60ml of [place] juice given after a FS of 80. [...] 07/13/17 0502 Interdisciplinary Rounds/Family Conf Participants casework specialist;dietitian/nutrition services;nursing;occupational therapy;patient;pharmacy;physical therapy;physician Plan of Care - [...] monitoring required during toileting and ADLs]: RN ASSEMBLER DRY CELL AND BATTERY Surveillance [continuous indirect monitoring]: Barrett Monitor CPG [...] Anticipated Discharge Disposition: home with assist Pager: [phone] CLARISSA SEGAL, PT 07/12/2017 Physical Therapy Rehabilitation [...] to sit/sit to supine Bed Mobility Goal, Gr[place] Level supervision required Bed Mobility Goal, Additional Goal adheres to psternal precautions for transfer Goal: Gait Training Goal Stand Alone Therapy Goal Outcome: Ongoing (Interventions Implemented as Appropriate) 07/12/17 1225 Gait Training Goal Gait Training Goal, Date Established 07/12/17 Gait Training Goal, Time to Achieve 2 - 3 days Gait Training Goal, Grimes Level supervision required Gait Training Goal, Assist [...] 3 days Transfer Training Goal, Activity Type hsp-el-uivsh/kmirk-ka-dtp;kwt-ma-wbkot/pxdzr-aq-nlg;toilet Transfer Train Goal, Grimes Level supervision required Transfer Training Goal, Additional Goal adheres to sternal precautions during transfer Consult Note - Octavia Vaughn RN - 07/12/2017 10:50 AM EST [facility] Gregory Hoang was seen today regarding participation in the outpatient Phase 2 Cardiac Rehabilitation at [facility]. The patient agrees to a [...] IV site, amio to other piv and VIDEO INTERN at bedside to help assess, IV removed. [...] staff, he stood and marched in place. Elmo weak, wanting to sit back down. Remained [...] Health/Prescription Coverage: Primary Insurance: MEDICARE Secondary Insurance: [place] Prescription Coverage: yes Preferred Pharmacy: [facility] Other: none Primary Care Provider: Lovely Vicente MD [phone] Patient/Caregiver Goals of Treatment:live and get my breath back Potential Needs for Transition of Care: Rehab/SNF: [facility] Home Health: NA DME: TBD Dialysis: na Community Resources: available Transportation: yes Other: none Anticipated Barriers to Discharge/Special Considerations: none Plan: Likely SNF Rehab before home A member of the Care Management team will continue to monitor progress, follow for continuity of care and assist with transition of care planning. ERLIN Weiss Pager: [phone] Consult Note - Katerin Azul RN - [...] review of custodial diabetes care. Diabetes History: Gregory Hoang has [...] potential to d/c gtt and start CF. watermaster diabetes care: Medications - Outpatient treatment regimen recommendations pending based on the hospital course. Monitoring - continue BG tid ac & hs Diet - low fat/low carb diet Exercise - weight-bearing exercise 30 min/day, as tolerated Thank you for allowing us to provide care for your patient W/E coverage, Dr. Jeane Tatum, pager [phone] Katerin Azul APRN Endocrinology Diabetes Management Pager [phone] Plan of Care - Stephanie Godoy, RN [...] Operative Note Patient Name: Gregory Hoang : [id number] MR#: [id number] Case Date: 07/07/2017 Surgeon: Surgeon(s) and Role: * Yuan Webber MD - Primary * Michael Drake PA - Physician Barrel Marker * Linda Flores PA - Physician Barrel Marker Preoperative diagnosis: 3VD Postoperative diagnosis: CAD, severe [...] Operative Note Patient Name: Gregory Hoang : [id number] MR#: [id number] Case Date: 07/07/2017 Surgeon: Surgeon(s) and Role: * Yuan Webber MD - Primary * Michael Drake PA - Physician Barrel Marker * Linda Flores PA - Physician Barrel Marker Preoperative diagnosis: 3VD Postoperative diagnosis: CAD, severe [...] (reference Cardiac: ACS (Acute Coronary Syndrome) (Adult) [employer] [facility] [employer]). 07/07/17621 Cardiac: ACS (Acute Coronary Syndrome) Problems [...] Hahn, MS3 [employer] [facility] Cardiology S1 (Pager [phone]) Plan of Care - Emelia Ibarra RN [...] with other involved physicians Yuan Webber MD [phone] Med Student Progress Note - Katty Hahn [...] - s/p lasix in the labor relations director, was net -1.5L - s/p plavix [...] insulin drip - hold metformin - f/u [facility] ?? #Home Meds - continue levothyroxine 175mcg - CPAP at night ?? # Routine - DVT PPx: heparin drip - Diet: Healthy heart diet, NPO at midnight for CABG tomorrow - Code Status: FULL - Dispo: CVCC Katty Hahn, M3 [facility] Cardiology S1 (Pager [phone]) Plan of Care - Stephanie Godoy RN - 07/06/2017 5:00 AM EST Problem: Patient Care Overview Goal: Plan of Care Review 07/06/17 6346 Coping/Psychosocial Plan Of Care Reviewed With patient;family [...] without difficulty. Lasix given in labor relations director, 1.4 L out at this time. [...] Outcome: Ongoing (Interventions Implemented as Appropriate) 07/06/17 1806 Cardiac: ACS (Acute Coronary Syndrome) Problems Assessed [...] Cardiology Zulma Dolan MD [facility] [place], [place] [address] (Wo rk) 05/28/2022 Laboratory Appointment Lab 05/28/2022 Office Visit Cardiology Zulma Dolan MD [facility] [place] [address] Liz Poole PA [facility] [place] [address] 06/10/2022 Office Visit Dermatology Laura Scherer MD [facility] DR TEJA GR-DERMAT [place], [place] [address] (Wo rk) Scheduled Orders Name [...] procedure are i n the results section. PIT SUPERVISOR SCAN 07/15/2017 12:00 Res ults for [...] Results f or this ([facility] AM EST procedure [...] 07/06/2017 2:10 Results f or this ([facility]) PM EST procedure [...] Results f or this ([facility]) PM EST procedure [...] 2017 EXAMINATION: XR CHEST PA AND LATERAL ([facility]) CLINICAL HISTORY: CABG x 3 TECHNIQUE: PA and lateral views of the chest COMPARISON: Radiograph 08/04/2017 FINDINGS: The lungs are clear. No pleural effusion or pneumothorax. Cardiomediastinal silhouette, moris, and pulmonary vasculat ure are unchanged. Unchanged sternotomy wires and mid sternal fracture. IMPRESSION No acute cardiopulmonary abnormality. I have personally reviewed the image(s) and the residents interpretation and agree with the findings, Michelle Monaoc at 08/19/2017 10:30 AM Martha Teague APRN IMG DX ORDERABLES SCAN DOC: PIT SUPERVISOR (07/15/2017 12:00 AM EST) Narrative 07/15/2017 [...] 65 - [address] [facility] mg/dL [facility] Comment: [...] [place] [address] POCT Glucose (07/14/2017 7:52 AM EST) athologist Signature POC Glucose 126 65 - [address] [facility] mg/dL [facility] Comment: Supplemental ranges: <140 mg/dL before meals <180 mg/dL all other times of the day Specimen Anatomical Collection Method Collection Time Receive d Time (Source) Location / / Volume Laterality Blood specimen 07/14/2017 7:52 AM 017 7:52 (specimen) EST AM EST Yuan Webber MD POINT OF CARE TEST ORDERABLE S Performing Organization Address [facility]/[place] [address] (ABNORMAL) Prothrombin Time (07/14/2017 4:46 AM EST) athologist Signature PT 26.4 (H) 11.8 - 14.0 [facility] LABORATORY INR 2.4 (H) [...] Wilson APRN HEMATOLOGY ORDERABLES Performing Organization Address City/[facility] [place] [address] Potassium (07/14/2017 4:46 AM EST) athologist Signature Potassium 4.3 3.5 - 5.0 [facility] mmol/L [facility] Comment: Please note: ??Patients with WBC [...] Address City/State/ZIP Code Phon e Number [address] POCT Glucose (07/14/2017 4:34 AM EST) athologist Signature POC Glucose 115 65 - 199 [place] mg/dL [facility] Comment: [...] Health/[facility]/ZIP Code Phon e Number [address] POCT Glucose (07/13/2017 11:33 PM EST) athologist Signature POC Glucose 132 65 - 199 [place] mg/dL [facility] Comment: [...] Health/[facility]/ZIP Code Ph[place] [address] POCT Glucose (07/13/2017 9:25 PM EST) athologist Signature POC Glucose 121 65 - 199 [place] mg/dL [facility] Comment: [...] Address City/State/ZIP Code Phon e Number [address] POCT Glucose (07/13/2017 4:55 PM EST) athologist Signature POC Glucose 79 65 - 199 [facility] [place] mg/dL [facility] [...] Address City/State/ZIP Code Phon e Number [address] POCT Glucose (07/13/2017 11:16 AM EST) athologist Signature POC Glucose 163 65 - 199 [facility] [place] mg/dL [facility] [...] Address City/State/ZIP Code Phon e Number [place] [id number]OS[address] POCT Glucose (07/13/2017 8:07 AM EST) athologist Signature POC Glucose 96 65 - 199 [facility] R[place] mg/dL [facility] [...] [place] [address] (ABNORMAL) Prothrombin Time (07/13/2017 4:26 AM EST) P athologist Signature PT 20.8 (H) 11.8 - 14.0 [facility] LABORATORY INR 1.8 (H) [...] Organization Address City/State/[place] [address] (ABNORMAL) Basic Metabolic Panel (non-fasting) (07/13/2017 4:26 AM EST) athologist Signature Glucose Lvl 95 65 - [address] [facility] mg/dL [facility] Comment: [...] [facility] Estimated GFR 60 >=60 [facility] Comment: The reported eGFR should be multiplied b y 1.2 for patients. The MDRD is not an appropriate measure o f renal function for patients with body mass extremes or in patients with acute kidney failure. http://My Rental Units/DHnkdep http://My Rental Units/DHMCnkf Specimen Anatomical Collection Method Collection Time Receive d Time (Source) Location / / Volume Laterality Blood specimen 07/13/2017 4:26 AM 017 4:46 (specimen) EST AM EST Resulting Agency Comment Spec In Lab Makayla Wilson APRN CHEMISTRY ORDERABLES Performing Organization Address City/[facility]/ZIP Code Phon e Number [address] POCT Glucose (07/13/2017 3:52 AM EST) athologist Signature POC Glucose 93 65 - [address] [facility] mg/dL [facility] Comment: [...] Address City/State/ZIP Code Phon e Number [address] POCT Glucose (07/13/2017 12:21 AM EST) athologist Signature POC Glucose 80 65 - 199 [facility] Comment: [...] Address City/State/ZIP Code Phon e Number [address] POCT Glucose (07/12/2017 8:22 PM EST) P athologist Signature POC Glucose 119 65 - 199 [place] mg/dL [facility] Comment: [...] Health/[facility]/ZIP Code Phon e Number [address] POCT Glucose (07/12/2017 4:02 PM EST) athologist Signature POC Glucose 114 65 - 199 [place] mg/dL [facility] Comment: [...] Address City/State/ZIP Code Phon e Number [address] POCT Glucose (07/12/2017 11:28 AM EST) P athologist Signature POC Glucose 164 65 - 199 [facility] [place] mg/dL [facility] [...] Address City/State/ZIP Code Phon e Number [address] POCT Glucose (07/12/2017 7:34 AM EST) athologist Signature POC Glucose 109 65 - 199 [facility] [...] Organization Address City/State/[place] [address] (ABNORMAL) Basic Metabolic Panel (non-fasting) (07/12/2017 4:11 AM EST) athologist Signature Glucose Lvl 92 65 - 199 [facility] Comment: Diabetes: [...] in patients with acute kidney failure. http://My Rental Units/DHnkdep http://My Rental Units/DHMCnkf Specimen Anatomical Collection Method Collection Time Receive d Time (Source) Location / / Volume Laterality Blood specimen 07/12/2017 4:11 AM 017 8:57 (specimen) EST AM EST Resulting Agency Comment Spec In Lab [facility]ile [facility] STACIE CHEMISTRY ORDERABLES Performing Organization Address [facility] [place] [address] (ABNORMAL) Prothrombin Time (07/12/2017 4:11 AM EST) P athologist Signature PT 15.4 (H) 11.8 - 14.0 [facility] LABORATORY INR 1.2 (H) [...] [place] STACIE HEMATOLOGY ORDERABLES Performing Organization Address City/[facility] Phon e Number [address] Potassium (07/12/2017 4:11 AM EST) P athologist Signature Potassium 3.8 3.5 - 5.0 [facility]/L [facility] Comment: Please note: ??Patients with WBC [...] Wilson APRN CHEMISTRY ORDERABLES Performing Organization Address City/[facility]/ZIP Code Phon e Number [address] POCT Glucose (07/12/2017 4:10 AM EST) athologist Signature POC Glucose 90 65 - 199 [facility] [...] Health/[facility]/ZIP Code Phon e Number [address] POCT Glucose (07/11/2017 11:57 PM EST) athologist Signature POC Glucose 98 65 - [address] [address] Comment: [...] Health/[facility]/ZIP Code Phon e Number [address] POCT Glucose (07/11/2017 8:32 PM EST) P athologist Signature POC Glucose 146 65 - 199 [place] mg/dL [facility] Comment: [...] Address City/State/ZIP Code Phon e Number [place] [address] XR Chest PA & [...] e xtubated, left chest tube removed, and [place]uzi catheter removed since the study. Atelectasis [...] e xtubated, left chest tube removed, and [place] catheter removed since the study. Atelectasis [...] (H) 65 - 199 [place] mg/dL [facility] Comment: [...] Organization Address City/State/[place] [address] POCT Glucose (07/11/2017 11:55 AM EST) athologist Signature POC Glucose 176 65 - 199 [place] mg/dL [facility] Comment: [...] Organization Address City/State/[place] [address] POCT Glucose (07/11/2017 7:53 AM EST) athologist Signature POC Glucose 189 65 - 199 [place] mg/dL [facility] Comment: [...] Health/[facility]/ZIP Code Phon e Number [address] POCT Glucose (07/11/2017 4:22 AM EST) athologist Signature POC Glucose 151 65 - 199 [place] mg/dL [facility] Comment: Supplemental ranges: <140 mg/dL before meals <180 mg/dL all other times of the day Specimen Anatomical Collection Method Collection Time Receive d Time (Source) Location / / Volume Laterality Blood specimen 07/11/2017 4:22 AM 017 4:22 (specimen) EST AM EST Yuan Webber MD POINT OF CARE TEST ORDERABLE S Performing Organization Address City/[facility] [place] [address] Potassium (07/11/2017 2:20 AM EST) athologist Signature Potassium 4.5 3.5 - 5.0 [facility]/L [facility] Comment: Please note: ??Patients with WBC [...] Webber MD CHEMISTRY ORDERABLES Performing Organization Address City/[facility]/ZIP Code Phon e Number [address] POCT Glucose (07/11/2017 12:17 AM EST) athologist Signature POC Glucose 162 65 - [address] [address] [address] mg/dL [facility] Comment: [...] Organization Address City/State/[place] [address] POCT Glucose (07/10/2017 8:47 PM EST) athologist Signature POC Glucose 191 65 - 199 [place] mg/dL [facility] Comment: [...] Organization Address City/State/[place] [address] POCT Glucose (07/10/2017 4:06 PM EST) athologist Signature POC Glucose 131 65 - 199 [place] mg/dL [facility] Comment: [...] Organization Address City/State/[place] [address] POCT Glucose (07/10/2017 3:08 PM EST) athologist Signature POC Glucose 151 65 - 199 [place] mg/dL [facility] Comment: [...] Address City/State/ZIP Code Phon e Number [address] POCT Glucose (07/10/2017 2:25 PM EST) athologist Signature POC Glucose 146 65 - 199 [place] mg/dL [facility] Comment: [...] Organization Address City/State/[place] [address] POCT Glucose (07/10/2017 1:23 PM EST) athologist Signature POC Glucose 166 65 - 199 [place] mg/dL [facility] Comment: [...] Organization Address City/State/[place] [address] POCT Glucose (07/10/2017 11:52 AM EST) athologist Signature POC Glucose 157 65 - 199 [place] mg/dL [facility] Comment: [...] Health/[facility]/ZIP Code Phon e Number [address] POCT Glucose (07/10/2017 11:01 AM EST) P athologist Signature POC Glucose 158 65 - 199 [place] mg/dL [facility] Comment: [...] Health/[facility]/ZIP Code Phon e Number [address] POCT Glucose (07/10/2017 9:54 AM EST) P athologist Signature POC Glucose 160 65 - 199 [place] mg/dL [facility] Comment: [...] Address City/State/ZIP Code Phon e Number [address] POCT Glucose (07/10/2017 8:58 AM EST) P athologist Signature POC Glucose 183 65 - 199 [facility] R[facility] mg/dL [facility] [...] Address City/State/ZIP Code Phon e Number [address] POCT Glucose (07/10/2017 8:01 AM EST) athologist Signature POC Glucose 173 65 - 199 [place] mg/dL [facility] Comment: [...] Address City/State/ZIP Code Phon e Number [address] POCT Glucose (07/10/2017 7:05 AM EST) athologist Signature POC Glucose 166 65 - 199 [place] mg/dL [facility] Comment: [...] Organization Address City/State/[place] [address] POCT Glucose (07/10/2017 6:00 AM EST) athologist Signature POC Glucose 162 65 - 199 [place] mg/dL [facility] Comment: [...] Address City/State/ZIP Code Phon e Number [address] (ABNORMAL) Differential, Automated (07/10/2017 4:28 AM EST) [facility] Method Time Signature Neutrophils % 87.9 % [facility] Neutr Abs (ANC) 10.70 (H) 1.70 - [facility] 6.10 [facility] x10(3)/[facility] L LABORATORY Lymphocytes % 3.9 % [facility] Lymphocytes Abs 0.5 (L) 0.9 - 3.2 [facility] x10(3)/[facility] LABORATORY Monocytes % 7.0 % [facility] Monocyte Abs 0.8 0.3 - 0.9 [facility] x10(3)/[facility] LABORATORY Eosinophils % 0.3 % [facility] Eosinophils Abs 0.0 0.0 - 0.4 [facility] x10(3)/[facility] LABORATORY Basophils % 0.2 % [facility] Basophils Abs 0.0 0.0 - 0.1 [facility] x10(3)/[facility] LABORATORY Immature Gran % 0.70 [...] Webber MD HEMATOLOGY ORDERABLES Performing Organization Address City/[facility]/ZIP [place] [address] (ABNORMAL) Hemogram (07/10/2017 4:28 AM EST) Analysis Performed At Patho logist Time Signature WBC 12.2 (H) 4.0 - 9.5 [facility] x10(3)/[facility] LABORATORY RBC 3.31 (L) 4.58 - [place] 5.54 [facility] x10(6)/[facility] LABORATORY Hemoglobin 9.8 (L) 13.7 - [facility] 16.5 gm/dL [facility] Hematocrit 30.0 (L) 40.5 - [facility] 48.5 % [facility] MCV 90.6 82.9 - [facility] 93.1 [facility]ORATORY MCH 29.6 27.5 - [facility] 32.1 pg [facility] MCHC 32.7 32.0 - [facility] 35.7 gm/dL [facility] Platelets 135 (L) 145 - 357 [facility] x10(3)/[facility] LABORATORY RDWSD 50.8 (H) 36.0 - [facility] 45.0 [facility] LABORATORY RDWCV 15.4 (H) 11.4 - [facility] 13.8 % [facility] MPV 10.0 7.6 - 12.9 [facility] LABORATORY nRBC % Auto 0.0 % [facility] nRBC Abs Auto 0.000 0.000 - [facility] 0.000 [facility] x10(3)/[facility] LABORATORY Specimen Anatomical Collection Method Collection Time Receive d Time (Source) Location / / Volume Laterality Blood specimen 07/10/2017 4:28 AM 017 4:36 (specimen) EST AM EST Resulting Agency Comment Spec In Lab uYan Webber MD HEMATOLOGY ORDERABLES Performing Organization Address City/State/ZIP [place] [address] (ABNORMAL) Basic Metabolic Panel (non-fasting) (07/10/2017 4:28 AM EST) P athologist Signature Glucose Lvl 178 65 - [address] [facility] mg/dL [facility] Comment: [...] [facility] Estimated GFR 60 >=60 [facility] Comment: The reported eGFR should be multiplied b y 1.2 for patients. The MDRD is not an appropriate measure o f renal function for patients with body mass extremes or in patients with acute kidney failure. http://My Rental Units/DHnkdep http://My Rental Units/DHMCnkf Specimen Anatomical Collection Method Collection Time Receive d Time (Source) Location / / Volume Laterality Blood specimen 07/10/2017 4:28 AM 017 4:36 (specimen) EST AM EST Resulting Agency Comment Spec In Lab Yuan Webber MD CHEMISTRY ORDERABLES Performing Organization Address City/State/ZIP [place] [address] POCT Glucose (07/10/2017 4:26 AM EST) P athologist Signature POC Glucose 176 65 - [address] [facility] mg/dL [facility] Comment: [...] Health/[facility]/ZIP Code Phon e Number [address] (ABNORMAL) POCT Glucose (07/10/2017 3:06 AM EST) P athologist Signature POC Glucose 204 (H) 65 - 199 [place] mg/dL [facility] Comment: [...] Health/[facility]/[place] [address] (ABNORMAL) POCT Glucose (07/10/2017 2:10 AM EST) P athologist Signature POC Glucose 203 (H) 65 - [address] [facility]/dL [facility] Comment: [...] Address City/State/ZIP Code Phon e Number [address] POCT Glucose (07/10/2017 1:09 AM EST) P athologist Signature POC Glucose 196 65 - 199 [facility] mg/dL [facility] [...] Address City/State/ZIP Code Phon e Number [address] POCT Glucose (07/10/2017 12:10 AM EST) P athologist Signature POC Glucose 173 65 - 199 [place] mg/dL [facility] Comment: [...] Address City/State/ZIP Code Phon e Number [address] POCT Glucose (07/09/2017 11:01 PM EST) athologist Signature POC Glucose 140 65 - 199 [place] mg/dL [facility] Comment: [...] Address City/State/ZIP Code Phon e Number [address] POCT Glucose (07/09/2017 10:05 PM EST) P athologist Signature POC Glucose 144 65 - 199 [facility] mg/dL [facility] [...] Address City/State/ZIP Code Phon e Number [address] POCT Glucose (07/09/2017 9:31 PM EST) athologist Signature POC Glucose 121 65 - 199 [place] mg/dL [facility] Comment: [...] Health/[facility]/ZIP Code Phon e Number [address] POCT Glucose (07/09/2017 9:03 PM EST) athologist Signature POC Glucose 98 65 - 199 [place] mg/dL [facility] Comment: [...] Health/[facility]/ZIP Code Phon e Number [address] POCT Glucose (07/09/2017 8:09 PM EST) athologist Signature POC Glucose 117 65 - 199 [place] mg/dL [facility] Comment: [...] Address City/State/ZIP Code Phon e Number [address] POCT Glucose (07/09/2017 5:40 PM EST) athologist Signature POC Glucose 155 65 - 199 [place] mg/dL [facility] Comment: [...] Address City/State/ZIP Code Phon e Number [address] POCT Glucose (07/09/2017 4:24 PM EST) athologist Signature POC Glucose 164 65 - 199 [place] mg/dL [facility] Comment: [...] Address City/State/ZIP Code Phon e Number [address] POCT Glucose (07/09/2017 3:19 PM EST) athologist Signature POC Glucose 166 65 - 199 [place] mg/dL [facility] Comment: [...] Organization Address City/State/[place] [address] POCT Glucose (07/09/2017 2:26 PM EST) athologist Signature POC Glucose 179 65 - 199 [place] mg/dL [facility] Comment: [...] Health/[facility]/[place] [address] (ABNORMAL) POCT Glucose (07/09/2017 1:29 PM EST) athologist Signature POC Glucose 210 (H) 65 - 199 [place] mg/dL [facility] Comment: [...] Health/[facility]/[place] [address] POCT Glucose (07/09/2017 12:20 PM EST) athologist Signature POC Glucose 172 65 - 199 [place] mg/dL [facility] Comment: [...] Address City/State/ZIP Code Phon e Number [address] POCT Glucose (07/09/2017 11:24 AM EST) P athologist Signature POC Glucose 156 65 - 199 [place] mg/dL [facility] Comment: [...] Address City/State/ZIP Code Phon e Number [address] POCT Glucose (07/09/2017 11:11 AM EST) athologist Signature POC Glucose 172 65 - 199 [place] mg/dL [facility] Comment: [...] Code Phon e Number [place], [place] [id number] [place] [address] POCT Glucose (07/09/2017 10:08 AM EST) P athologist Signature POC Glucose 176 65 - 199 [place] mg/dL [facility] Comment: Supplemental [...] Address City/State/ZIP Code [place] [address] POCT Glucose (07/09/2017 8:02 AM EST) P athologist Signature POC Glucose 178 65 - [address] [facility] mg/dL [facility] Comment: [...] Organization Address City/State/[place] [address] (ABNORMAL) BLOOD GAS 2 ARTERIAL (07/09/2017 5:37 AM EST) Analysis Performed At Patho logist Time Signature pH Art 7.36 7.35 - [facility] 7.45 [facility] pCO2 Art 38 35 - 45 [facility] LABORATORY pO2 Art 79 (L) 85 - 104 [facility] LABORATORY HCO3 Art 20.9 [address] [facility] 26.0 [facility] mmol/L [facility] LABOR[facility] BE Art -4.6 (L) -3.0 - 3.0 [facility] mmol/L [facility] Hgb Blood Gas 10.5 (L) 13.7 - [facility] 16.5 gm/dL [facility] O2HB Art 93.8 (L) 94.0 - [facility] 97.0 % [facility] COHB Art 0.3 % [facility] [...] Whole Bld 175 65 - 199 mg/dL [facility] LABOR[facility]ORY Comment: Diabetes: >=200 mg/dL plus symp toms. Lactate WB 1.0 0.5 - 2.2 mmol/L [facility] FIO2 Art 40 % [facility] PF Ratio Art 198 [facility]ORY Specimen Anatomical Collection Method Collection Time Receive d Time (Source) Location / / Volume Laterality Blood specimen 07/09/2017 5:37 AM 017 5:37 (specimen) EST AM EST Yuan Webber MD CHEMISTRY ORDERABLES Performing Organization Address City/State/ZIP Code Phon e Number [address] POCT Glucose (07/09/2017 3:27 AM EST) athologist Signature POC Glucose 192 65 - [address] [facility] mg/dL [facility] Comment: [...] [facility]/[place] [address] (ABNORMAL) Basic Metabolic Panel (non-fasting) (07/09/2017 2:30 AM EST) P athologist Signature Glucose Lvl 179 65 - [address] [facility] mg/dL [facility] Comment: [...] in patients with acute kidney failure. [email or web address] Rental Units/DHnkdep http://My Rental Units/DHMCnkf Specimen Anatomical Collection Method Collection Time Receive d Time (Source) Location / / Volume Laterality Blood specimen Venous Draw / 07/09/2017 2:30 AM 2016 2:42 (specimen) Unknown EST AM EST Resulting Agency Comment Spec In Lab Yuan Webber MD CHEMISTRY ORDERABLES Performing Organization Address City/State/[place] [address] (ABNORMAL) Potassium (07/09/2017 2:30 AM EST) P athologist Signature Potassium 5.1 (H) 3.5 - 5.0 [facility] mmol/L [facility] Comment: Please note: ??Patients with WBC [...] [place] [address] (ABNORMAL) Hemogram (07/09/2017 2:30 AM EST) Analysis Performed At Patho logist Time Signature WBC 12.5 (H) 4.0 - 9.5 [facility](3[facility] LABORATORY RBC 3.38 (L) 4.58 [facility] 5[facility]54 [facility] x10(6)/[facility] LABORATORY Hemoglobin 10.1 (L) 13.7 - [facility] 16.5 gm/dL [facility] Hematocrit 30.3 (L) 40.5 - [facility] 48.5 % [facility] MCV 89.6 82.9 - [facility] 93.1 [facility] LABORATORY MCH 29.9 27.5 - [place] RYAN 32.1 pg [facility] MCHC 33.3 32.0 - [facility] 35.7 gm/dL [facility] Platelets 127 (L) 145 - 357 [facility] x[facility](3)/[facility] LABORATORY RDWSD 49.3 (H) 36.0 - [place] RYAN 45.0 [facility] LABORATORY RDWCV 15.2 (H) 11.4 - [facility] RYAN 13.8 % [facility] MPV 9.9 7.6 - 12.9 [facility] LABORATORY nRBC % Auto 0.0 % [facility] LABORATORY nRBC Abs Auto 0.000 0.000 - [place] RYAN 0.000 [facility] x10(3)/[facility] LABORATORY Specimen Anatomical Collection Method Collection Time Receive d Time (Source) Location / / Volume Laterality Blood specimen 07/09/2017 2:30 AM 017 2:41 (specimen) EST AM EST Resulting Agency Comment Spec In Lab Yuan Webber MD HEMATOLOGY ORDERABLES Performing Organization Address City/[facility]/[place] [address] POCT Glucose (07/09/2017 2:10 AM EST) P athologist Signature POC Glucose 169 65 - 199 [place] RY[place] mg/dL [facility] Comment: [...] [facility]/[place] [address] POCT Glucose (07/09/2017 1:01 AM EST) P athologist Signature POC Glucose 173 65 - 199 [place] ZHAORYAN mg/dL [facility] Comment: [...] [facility]/[place] [address] Blood culture (07/09/2017 12:40 AM EST) Patholo gist Method Time Signature Blood Culture No growth [place] VILLAREALCOCK at 5 days. [facility] Specimen Anatomical Collection Method Collection Time Receive d Time (Source) Location / / Volume Laterality Blood specimen STRUCTURE OF RIGHT 07/09/2017 12:40 3:58 (specimen) UPPER LIMB / AM EST AM EST Unknown Resulting Agency Comment Spec In Lab Yuan Webber MD MICROBIOLOGY - BLOOD ORDERAB LES Performing Organization Address City/State/[place] [address] Blood culture (07/09/2017 12:30 AM EST) Patholo gist Method Time Signature Blood Culture No growth KATALINA DAVIS at 5 days. [facility] Specimen Anatomical Collection Method Collection Time Receive d Time (Source) Location / / Volume Laterality Blood specimen STRUCTURE OF LEFT 07/09/2017 12:30 1211/2016 3:59 (specimen) UPPER LIMB / AM EST AM EST Unknown Resulting Agency Comment Spec In Lab Yuan Webber MD MICROBIOLOGY - BLOOD ORDERAB LES Performing Organization Address City/[facility]/[place] [address] (ABNORMAL) Urinalysis Microscopic Exam (07/09/2017 12:05 AM EST) Analysis Performed At Patho logist Time Signature RBC UA 32 (H) 0 - 3 /HPF [facility] WBC UA 5 (H) 0 - 3 /HPF [facility] Squam Epith UA <1 <=4 /HPF [facility]ORY Hyaline Cast 17 (H) 0 - 2 /LPF [facility] Gran Cast UA 1 (H) <=0 /LPF [facility]ORY Uric Ac Bianca Rare (A) None /HPF [facility] Specimen (Source) Anatomical Collection Method Collection Time Re ceived Time Location / / Volume Laterality Urine specimen 07/09/2017 12:05 7 obtained via AM EST 12:39 AM EST indwelling urinary catheter (specimen) Resulting Agency Comment Spec In Lab Yuan Webber MD URINE ORDERABLES Performing Organization Address City/State/[place] [address] (ABNORMAL) Urinalysis with reflex Culture (07/09/2017 12:05 AM EST) [facility] gist Method Time Signature Glucose UA Negative Negative [facility] mg/dL [facility] Protein UA 30 (A) Negative [facility]/dL [facility] Bilirubin UA Negative Negative [facility] mg/dL [facility] Comment: Clinical correlation required for positi [facility] Nitrite UA Negative Negative [facility]ORY Leukocytes UA Negative Negative [facility] LABORATORY Appearance UA Hazy (A) Clear [facility] LABORATORY Spec Stuart UA 1.025 1.002 - 1.030 [facility] Color UA Yellow Yellow [facility] LAB[facility]ORY Culture Reflexed No [facility] LABOR[facility]ORY Specimen (Source) Anatomical Collection Method Collection Time Re ceived Time Location / / Volume Laterality Urine specimen 07/09/2017 12:05 7 obtained via AM EST 12:39 AM EST indwelling urinary catheter (specimen) Resulting Agency Comment Spec In Lab Yuan Webber MD URINE ORDERABLES Performing Organization Address City/[facility]/ZIP [place] [address] POCT Glucose (07/08/2017 11:01 PM EST) P athologist Signature POC Glucose 191 65 - 199 [facility] mg/dL [facility] [...] Address City/State/ZIP [place] [address] POCT Glucose (07/08/2017 10:04 PM EST) athologist Signature POC Glucose 198 65 - [address] [address] [address] mg/dL [facility] Comment: [...] Organization Address City/State/[place] [address] Prepare Albumin 5% in [...] Organization Address City/State/[place] [address] POCT Glucose (07/08/2017 8:28 PM EST) athologist Signature POC Glucose 195 65 - [address] [address] mg/dL [facility] Comment: [...] Organization Address City/State/[place] [address] (ABNORMAL) POCT Glucose (07/08/2017 7:13 PM EST) P athologist Signature POC Glucose 220 (H) 65 - 199 [facility] mg/dL [facility] [...] Address City/State/ZIP Code Phon e Number [address] POCT Glucose (07/08/2017 5:04 PM EST) athologist Signature POC Glucose 147 65 - 199 [facility] mg/dL [facility]OR[facility] [...] Organization Address City/State/[place] [address] (ABNORMAL) BLOOD GAS 2 ARTERIAL (07/08/2017 4:13 PM EST) Analysis Performed At Patho logist Time Signature pH Art 7.38 7.35 - [facility] 7.45 [facility] pCO2 Art 36 35 - 45 [facility] LABORATORY pO2 Art 91 85 - 104 [facility] LABORATORY HCO3 Art 20.9 20.[address] - [facility] 26.0 [facility] mmol/L [facility] LABORATORY BE Art -4.2 (L) -3.0 - 3.0 [facility] mmol/L [facility] Hgb Blood Gas 11.7 (L) 13.7 - [facility] 16.5 gm/dL [facility] O2HB Art 95.1 94.0 - [facility] 97.0 % [facility] COHB Art 0.6 % [facility] [...] Whole Bld 155 65 - 199 mg/dL [facility] Comment: Diabetes: >=200 mg/dL plus symp toms. Lactate WB 1.4 0.5 - 2.2 mmol/L [facility] FIO2 Art 40 % [facility] PF Ratio Art 228 [facility]ORY Specimen Anatomical Collection Method Collection Time Receive d Time (Source) Location / / Volume Laterality Blood specimen 07/08/2017 4:13 PM 017 4:13 (specimen) EST PM EST Yuan Webber MD CHEMISTRY ORDERABLES Performing Organization Address City/State/Z[place] [address] POCT Glucose (07/08/2017 4:01 PM EST) P athologist Signature POC Glucose 148 65 - [address] [facility] mg/dL [facility] Comment: [...] Address City/State/ZIP Code Phon e Number [address] POCT Glucose (07/08/2017 3:21 PM EST) athologist Signature POC Glucose 118 65 - 199 [place] ZHAORYAN mg/dL [facility] Comment: [...] [facility]/ZIP Code Phon e Number [address] POCT Glucose (07/08/2017 2:01 PM EST) athologist Signature POC Glucose 129 65 - 199 [place] ZHAORYAN mg/dL [facility] Comment: [...] Organization Address City/State/[place] [address] POCT Glucose (07/08/2017 11:53 AM EST) athologist Signature POC Glucose 156 65 - 199 [place] RYAN mg/dL [facility] Comment: [...] Organization Address City/State/[place] [address] POCT Glucose (07/08/2017 11:04 AM EST) P athologist Signature POC Glucose 181 65 - 199 [facility] mg/dL [facility] LABOR[facility] [...] [facility]/[place] [address] (ABNORMAL) POCT Glucose (07/08/2017 9:24 AM EST) athologist Signature POC Glucose 203 (H) 65 - [address] mg/dL [facility] Comment: [...] [facility]/[place] [address] APTT (07/08/2017 8:40 AM [...] Organization Address City/State/[place] [address] (ABNORMAL) Prothrombin Time (07/08/2017 8:40 AM EST) P athologist Signature PT 15.6 (H) 11.8 - 14.0 [facility] LABORATORY INR 1.3 (H) [...] Webber MD HEMATOLOGY ORDERABLES Performing Organization Address City/[facility]/[place] [address] (ABNORMAL) POCT Glucose (07/08/2017 7:38 AM EST) P athologist Signature POC Glucose 232 (H) 65 - [address] [facility] mg/dL [facility] Comment: [...] [facility]/[place] [address] (ABNORMAL) POCT Glucose (07/08/2017 7:07 AM EST) athologist Signature POC Glucose 234 (H) 65 - [address] mg/dL [facility] Comment: [...] Organization Address City/State/[place] [address] (ABNORMAL) POCT Glucose (07/08/2017 6:04 AM EST) athologist Signature POC Glucose 225 (H) 65 - 199 [facility] mg/dL [facility] [...] [facility]/[place] [address] (ABNORMAL) POCT Glucose (07/08/2017 5:31 AM EST) athologist Signature POC Glucose 216 (H) 65 - [address] [address] [address] mg/dL [facility] Comment: [...] Organization Address City/State/[place] [address] (ABNORMAL) POCT Glucose (07/08/2017 4:52 AM EST) P athologist Signature POC Glucose 257 (H) 65 - [address] [facility] mg/dL [facility] Comment: [...] [place] [address] (ABNORMAL) BLOOD GAS 2 ARTERIAL (07/08/2017 4:04 AM EST) Analysis Performed At Patho logist Time Signature pH Art 7.30 (L) 7.35 - [facility] 7.45 [facility] pCO2 Art 41 35 - 45 [facility] LABORATORY pO2 Art 83 (L) 85 - 104 [facility] LABORATORY HCO3 Art 19.6 (L) 20.0 - [facility] 26.0 [facility] mmol/[facility] LABORATORY BE Art -6.8 (L) -3.0 - 3.0 [facility] mmol/L [facility] Hgb Blood Gas 12.2 (L) 13.7 - [facility] 16.5 gm/dL [place] O2HB Art 93.5 (L) 94.0 - [facility] 97.0 % [facility] COHB Art 0.4 % [facility] [...] Bld 274 (H) 65 - 199 mg/dL [facility] Comment: Diabetes: >=200 mg/dL plus symp toms. Lactate WB 4.4 (Critical) 0.5 - 2.2 mmol/L [facility] Comment: Noted by electrical instrument technician. FIO2 Art 40 % [facility] PF Ratio Art 208 [facility] Specimen Anatomical Collection Method Collection Time Receive d Time (Source) Location / / Volume Laterality Blood specimen 07/08/2017 4:04 AM 017 4:04 (specimen) EST AM EST Daphne Shahid MD CHEMISTRY ORDERABLES Performing Organization Address City/State/ZIP Code Phon e Number [address] Scan, Peripheral Blood (07/08/2017 [...] Address City/State/ZIP Code Phon e Number [address] (ABNORMAL) Differential, Automated (07/08/2017 4:00 AM EST) Patholo gist Method Time Signature Neutrophils % 85.4 % [facility] LABORATORY Neutr Abs (ANC) 16.07 (H) 1.70 - [facility] 6.10 [facility] x10(3)/[facility] L LABORATORY Lymphocytes % 3.5 % [facility] LABORATORY Lymphocytes Abs 0.6 (L) 0.9 - 3.2 [facility] x10(3)/[facility] LABORATORY Monocytes % 10.4 % [facility] LABORATORY Monocyte Abs 2.0 (H) 0.3 - 0.9 [facility] x10(3)/[facility] LABORATORY Eosinophils % 0.0 % [facility] LABORATORY Eosinophils Abs 0.0 0.0 - 0.4 [facility] x10(3)/[facility] LABORATORY Basophils % 0.1 % [facility] LABORATORY Basophils Abs 0.0 0.0 - 0.1 [facility] x10(3)/[facility] LABORATORY Immature Gran % 0.60 [...] Gran Abs 0.12 (H) 0.00 - 0.04 x10(3)/[facility] LABORATORY Specimen Anatomical Collection Method Collection Time Receive d Time (Source) Location / / Volume Laterality Blood specimen 07/08/2017 4:00 AM 017 4:09 (specimen) EST AM EST Resulting Agency Comment Spec In Lab Yuan Webber MD HEMATOLOGY ORDERABLES Performing Organization Address City/State/ZIP [place] [address] (ABNORMAL) Hemogram (07/08/2017 4:00 AM EST) Analysis Performed At Patho logist Time Signature WBC 18.8 (H) 4.0 - 9.5 [facility] x10(3)/[facility] LABORATORY RBC 4.00 (L) 4.58 - [facility] 5.54 [facility] x10(6)/[facility] LABORATORY Hemoglobin 11.9 (L) 13.7 - [facility] 16.5 gm/dL [facility] Hematocrit 35.9 (L) 40.5 - [place] DAV[place] 48.5 % [facility] MCV 89.8 82.9 - [facility] 93.1 [facility] LABORATORY MCH 29.8 27.5 - [place] DAVIS 32.1 pg [facility] MCHC 33.1 32.0 - [place] ZHAORYAN 35.7 gm/dL [facility] Platelets 232 145 - 357 [facility] x10(3)/[facility] LABORATORY RDWSD 47.6 (H) 36.0 - [place] ZHAORYAN 45.0 [facility] LABORATORY RDWCV 14.5 (H) 11.4 - [facility] 13.8 % [facility] MPV 9.5 7.6 - 12.9 [facility] LABORATORY nRBC % Auto 0.0 % [facility] LABORATORY nRBC Abs Auto 0.000 0.000 - [facility] 0.000 [facility] x10(3)/[facility] LABORATORY Specimen Anatomical Collection Method Collection Time Receive d Time (Source) Location / / Volume Laterality Blood specimen 07/08/2017 4:00 AM 017 4:09 (specimen) EST AM EST Resulting Agency Comment Spec In Lab Yuan Webber MD HEMATOLOGY ORDERABLES Performing Organization Address City/State/ZIP Code Phon e Number [place] [id number]OS[address] LABOR[address]ORY Drive (ABNORMAL) Electrolytes panel (07/08/2017 4:00 AM EST) P athologist Signature Sodium 139 135 - 145 [facility] mmol/L [facility] Potassium 4.7 3.5 - 5.0 [facility] mmol/L [facility] Comment: result rechecked-JLK Please note: ??Patients with WBC >100,00 0 may have falsely elevated Potassium levels. ??For accurate Potassium quantif ication in these patients send serum separator tube (gold top) for subsequent determinations. ??Contact the Clinical Chemistry Laboratory if there are any qu estions. Chloride 104 98 - 107 mmol/L [facility] CO2 21 (L) 22 - 31 mmol/L [facility] Anion Gap 14 5 - 15 mmol/L [facility] Specimen Anatomical Collection Method Collection Time Receive d Time (Source) Location / / Volume Laterality Blood specimen 07/08/2017 4:00 AM 017 4:10 (specimen) EST AM EST Resulting Agency Comment Spec In Lab Yuan Webber MD CHEMISTRY ORDERABLES Performing Organization Address City/State/ZIP [place] [address] (ABNORMAL) Cardiac Enzymes (LEB/CGP) (07/08/2017 4:00 AM EST) P athologist Signature Troponin-T 1.88 (H) 0.00 - [facility] 0.00 ng/mL [facility] Comment: The 99th percentile for Troponin [...] additional sample may be indicated. Reference: Third [place] Definition of Myocardial Infarction. Journal of the [place] [employer] 2012;60:1581-98 CK, Total 413 (H) 0 - 200 unit/L [facility] Comment: result rechecked-JLK Specimen Anatomical Collection Method Collection Time Receive d Time (Source) Location / / Volume Laterality Blood specimen 07/08/2017 4:00 AM 017 4:09 (specimen) EST AM EST Resulting Agency Comment Spec In Lab Yuan Webber MD CHEMISTRY ORDERABLES Performing Organization Address City/[facility]/ZIP Code Phon e Number [address] (ABNORMAL) Glucose, fasting (07/08/2017 4:00 AM EST) P athologist Signature Glucose 287 (H) 65 - 99 [facility] Fasting mg/dL [facility] Comment: ?Fasting* Glucose Interpretive C riteria [...] Webber MD CHEMISTRY ORDERABLES Performing Organization Address City/[facility]/[place] [address] (ABNORMAL) Creatinine (07/08/2017 4:00 AM EST) Analysis Performed At Patho logist Time Signature Creatinine 1.55 (H) 0.80 - [place] ZHAORYAN 1.50 mg/dL [facility] Estimated GFR 44 (L) >=60 [facility] Comment: The reported eGFR should be multiplied b y 1.2 for patients. The MDRD is not an appropriate measure o f renal function for patients with body mass extremes or in patients with acute kidney failure. http://Hachimenroppi.Thinkfuse/nkdep http://My Rental Units/DHMCnkf Specimen Anatomical Collection Method Collection Time Receive d Time (Source) Location / / Volume Laterality Blood specimen 07/08/2017 4:00 AM 017 4:09 (specimen) EST AM EST Resulting Agency Comment Spec In Lab Yuan Webber MD CHEMISTRY ORDERABLES Performing Organization Address City/[facility]/[place] [address] BUN (07/08/2017 4:00 AM EST) athologist Signature BUN 16 10 - [address] mg/dL [facility] Specimen Anatomical Collection Method Collection Time Receive d Time (Source) Location / / Volume Laterality Blood specimen 07/08/2017 4:00 AM 017 4:09 (specimen) EST AM EST Resulting Agency Comment Spec In Lab Yuan Webber MD CHEMISTRY ORDERABLES Performing Organization Address City/[facility]/[place] [address] (ABNORMAL) POCT Glucose (07/08/2017 3:00 AM EST) athologist Signature POC Glucose 273 (H) 65 - [address] [address] [address] mg/dL [facility] Comment: [...] Health/[facility]/ZIP Code Phon e Number [address] (ABNORMAL) POCT Glucose (07/08/2017 1:57 AM EST) P athologist Signature POC Glucose 288 (H) 65 - [address] [address] mg/dL [facility] Comment: [...] Organization Address City/State/[place] [address] (ABNORMAL) POCT Glucose (07/08/2017 1:01 AM EST) P athologist Signature POC Glucose 315 (H) 65 - [address] [facility] mg/dL [facility] Comment: [...] Health/[facility]/[place] [address] (ABNORMAL) BLOOD GAS 2 ARTERIAL (07/08/2017 12:09 AM EST) P athologist Signature pH Art 7.26 7.35 - [facility] (Critical) 7.45 [facility] Comment: Noted by electrical instrument technician. pCO2 Art 41 35 - 45 mmHg [facility] LAB[facility] pO2 Art 96 85 - [...] [facility] COHB Art 0.2 % [facility] [...] Bld 315 (H) 65 - 199 mg/dL [facility] Comment: Diabetes: >=200 mg/dL plus symp toms. Lactate WB 7.6 (Critical) 0.5 - 2.2 mmol/L [facility] Comment: Noted by electrical instrument technician. FIO2 Art 40 % [facility] PF Ratio Art 240 [facility] Specimen Anatomical Collection Method Collection Time Receive d Time (Source) Location / / Volume Laterality Blood specimen Arterial Draw / 07/08/2017 12:09 2016 5:31 (specimen) Unknown AM EST AM EST Resulting Agency Comment Spec In Lab Samy Maldonado MD CHEMISTRY ORDERABLES Performing Organization Address City/State/Z[place] [address] (ABNORMAL) POCT Glucose (07/07/2017 10:56 PM EST) P athologist Signature POC Glucose 292 (H) 65 - [address] [facility] mg/dL [facility] Comment: [...] [place] [address] (ABNORMAL) BLOOD GAS 2 ARTERIAL (07/07/2017 10:04 PM EST) athologist Signature pH Art 7.22 7.35 - [facility] (Critical) 7.45 [facility] Comment: Noted by electrical instrument technician. pCO2 Art 42 35 - 45 mmHg [facility] pO2 Art 94 85 - [...] [facility] COHB Art 0.7 % [facility] [...] Bld 304 (H) 65 - 199 mg/dL [facility] Comment: Diabetes: >=200 mg/dL plus symp toms. Lactate WB 8.2 (Critical) 0.5 - 2.2 mmol/L [facility] Comment: Noted by electrical instrument technician. FIO2 Art 40 % [facility] PF Ratio Art 235 [facility] Specimen Anatomical Collection Method Collection Time Receive d Time (Source) Location / / Volume Laterality Blood specimen 07/07/2017 10:04 7 (specimen) PM EST 10:04 PM EST Daphne Shahid MD CHEMISTRY ORDERABLES Performing Organization Address City/[facility]/ZIP Code Phon e Number [address] (ABNORMAL) Hemoglobin (07/07/2017 10:00 PM EST) P athologist Signature Hemoglobin 12.8 (L) 13.7 - [facility] 16.5 gm/dL [facility] Specimen Anatomical Collection Method Collection Time Receive d Time (Source) Location / / Volume Laterality Blood specimen 07/07/2017 10:00 7 (specimen) PM EST 10:13 PM EST Resulting Agency Comment Spec In Lab Yuan Webber MD HEMATOLOGY ORDERABLES Performing Organization Address City/[facility]/[place] [address] (ABNORMAL) Potassium (07/07/2017 10:00 PM EST) P athologist Signature Potassium 3.4 (L) 3.5 - 5.0 [facility] mmol/L [facility] Comment: Please note: ??Patients with WBC [...] Organization Address City/State/[place] [address] (ABNORMAL) POCT Glucose (07/07/2017 8:49 PM EST) P athologist Signature POC Glucose 241 (H) 65 - [address] [facility] mg/dL [facility] Comment: [...] Health/[facility]/[place] [address] Prepare Albumin 5% in [...] Organization Address City/State/[place] [address] EKG 12 Lead (07/07/2017 7:17 PM EST) Component Value Ref Range Test Analysis Performed Pathologis t Method Time At Signature Ventricular rate 75 BPM MUSE SYSTEM Atrial Rate 75 BPM MUSE SYSTEM P-R Interval 168 ms MUSE SYSTEM QRS Duration 104 ms MUSE SYSTEM Q-T Interval 462 ms MUSE SYSTEM QTC Calculated 515 ms MUSE SYSTEM (Bezet) Calculated P Makoti 52 degrees MUSE SYSTEM Calculated R Mak[place] -40 degrees MUSE SYSTEM Calculated T Mak[place] 39 degrees MUSE SYSTEM INTERPRETATION Normal sinus [...] 7.35 - [facility] (Critical) 7.45 [facility] Comment: Noted by electrical instrument technician. pCO2 Art 50 (H) 35 - 45 mmHg [facility] pO2 Art 238 (H) 85 [...] [facility] COHB Art 0.5 % [facility] [...] [facility] Comment: Noted by electrical instrument technician. Please note: Patients with WBC [...] Bld 270 (H) 65 - 199 mg/dL [facility] Comment: Diabetes: >=200 mg/dL plus symp toms. Lactate WB 4.9 (Critical) 0.5 - 2.2 mmol/L [facility] Comment: Noted by electrical instrument technician. FIO2 Art 100 % [facility] PF Ratio Art 238 [facility] Specimen Anatomical Collection Method Collection Time Receive d Time (Source) Location / / Volume Laterality Blood specimen 07/07/2017 6:57 PM 017 6:57 (specimen) EST PM EST Daphne Shahid MD CHEMISTRY ORDERABLES Performing Organization Address City/State/[place]IP [place] [address] (ABNORMAL) BLOOD GAS 2 ARTERIAL (07/07/2017 5:31 PM EST) athologist Signature pH Art 7.29 7.[address] [facility] (Critical) 7.45 [facility] Comment: Noted by electrical instrument technician. pCO2 Art 48 (H) 35 - 45 mmHg [facility] pO2 Art 137 (H) 85 [...] [facility] COHB Art 0.3 % NOR[facility] [...] Bld 293 (H) 65 - 199 mg/dL [facility] Comment: Diabetes: >=200 mg/dL plus symp toms. Lactate WB 3.1 (H) 0.5 - 2.2 mmol/L [facility] Specimen Anatomical Collection Method Collection Time Receive d Time (Source) Location / / Volume Laterality Blood specimen 07/07/2017 5:31 PM 017 5:31 (specimen) EST PM EST Daphne Shahid MD CHEMISTRY ORDERABLES Performing Organization Address City/[facility]/ZIP Code Phon e Number [address] Fibrinogen (07/07/2017 5:30 PM EST) P athologist Signature Fibrinogen 224 180 - 510 [facility] mg/dL [facility] Comment: Called by: JEET, Read back [...] Perez MD HEMATOLOGY ORDERABLES Performing Organization Address City/[facility]/ZIP [facility] Phon e Number [address] APTT (07/07/2017 5:30 PM [...] Perez MD HEMATOLOGY ORDERABLES Performing Organization Address City/[facility]/ZIP Code Phon e Number [address] (ABNORMAL) Prothrombin Time (07/07/2017 5:30 PM EST) P athologist Signature PT 19.0 (H) 11.8 - 14.0 [facility] [...] Perez MD HEMATOLOGY ORDERABLES Performing Organization Address City/[facility] [place] [address] (ABNORMAL) Hemogram (07/07/2017 5:30 PM EST) P athologist Signature WBC 19.6 (H) 4.0 - 9.5 [facility] x10(3)/[facility] LABORATORY RBC 3.08 (L) 4.58 - [facility] 5.54 [facility] x10(6)/[facility] LABORATORY Hemoglobin 9.2 (L) 13.[address] - [facility] 16.5 gm/dL [facility] Hematocrit 28.0 (L) 40.[address] - [facility] 48.5 % [facility] Comment: This result has been called [...] 0.000 - 0.000 x10(3)/[facility] LABORATORY Specimen Anatomical Collection Method Collection Time Receive d Time (Source) Location / / Volume Laterality Blood specimen 07/07/2017 5:30 PM 017 5:34 (specimen) EST PM EST Resulting Agency Comment Spec In Lab Yifan Perez MD HEMATOLOGY ORDERABLES Performing Organization Address City/State/ZIP [place] [address] Prepare Platelets, Apheresis (07/07/2017 5:00 PM EST) P athologist Signature Dispensed? Yes [facility] Specimen Anatomical Collection Method Collection Time Receive d Time (Source) Location / / Volume Laterality Blood specimen 07/07/2017 5:00 PM 017 4:58 (specimen) EST PM EST Daphne Shahid MD BLOOD BANK ORDERABLES Performing Organization Address City/State/[place] [address] Platelet count (07/07/2017 4:55 PM EST) athologist Signature Platelets 177 145 - 357 KATALINA DAVIS x10(3)/[facility] LABORATORY Plat Immature 1.5 0.0 - 7.4 [facility] DAVIS % % [facility] Comment: Limitation of the Immature Platelet Frac tion (IPF)-May be less reliable when the platelet count is less than 50p386/u L due to statistical imprecision. The IPF [...] in a decreased state of production. References: [employer] The Clinical Value of the Immature Platelet Fraction (IPF) in Cell Recovery Document Number 10-1143 12/2010 [employer] The Role of the Imm ature [...] [place] [address] [facility]ORY Drive (ABNORMAL) Hemoglobin and Hematocrit, blood (07/07/2017 4:55 PM EST) athologist Signature Hemoglobin 9.1 (L) 13.7 - 16.5 [facility] DAVIS gm/dL [facility] Comment: This result has been called [...] [place] [address] (ABNORMAL) BLOOD GAS 2 ARTERIAL (07/07/2017 4:38 PM EST) Analysis Performed At Patho logist Time Signature pH Art 7.37 7.35 - [facility] 7.45 [facility] pCO2 Art 44 35 - 45 [facility] mmHg [facility] pO2 Art 322 (H) 85 - 104 [facility]ATORY HCO3 Art 24.[address] [facility] 26.0 [facility] mmol/[facility] BE Art -0.4 -3.0 - 3.0 [facility] mmol/L [facility] Hgb Blood Gas 10.1 (L) 13.7 - [facility] 16.5 gm/dL [facility] O2HB Art 98.7 (H) 94.0 - [facility] 97.0 % [facility] COHB Art 0.1 % [facility] Comment: Noted by electrical instrument technician. Note: ??Total bilirubin higher than 20 m g/dL may lead to falsely low ionized calcium. CL Whole Blood 101 98 - 107 mmol/L [facility] Gluc Whole Bld 295 (H) 65 - 199 mg/dL [facility] [...] [place] [address] (ABNORMAL) BLOOD GAS 2 VENOUS (07/07/2017 4:06 PM EST) Analysis Performed At Patho logist Time Signature pH Cody 7.31 (L) 7.32 - [facility] 7.42 [facility] pCO2 Cody 47 41 - 51 [facility]ORATORY pO2 Cody 53 (H) 25 - 40 [facility]ORATORY HCO3 Cody 22.7 mmol/L [facility] BE Cody -3.7 mmol/L [facility] Hgb Blood Gas 10.2 (L) 13.7 - [facility] 16.5 gm/dL [facility] O2HB Cody 81.0 % [facility] [...] [facility] Comment: Noted by electrical instrument technician. Note: ??Total bilirubin higher than 20 m g/dL may lead to falsely low ionized calcium. CL Whole Blood 100 98 - 107 mmol/L [facility] Gluc Whole Bld 231 (H) 65 - 199 mg/dL [facility] Comment: Diabetes: >=200 mg/dL plus symp toms Lactate WB 1.1 0.5 - 2.2 mmol/L [facility] BGas Source Venous [facility] Specimen Anatomical Collection Method Collection Time Receive d Time (Source) Location / / Volume Laterality Blood specimen 07/07/2017 4:06 PM 017 4:06 (specimen) EST PM EST Daphne Shahid MD CHEMISTRY ORDERABLES Performing Organization Address City/State/ZIP [place] [address] (ABNORMAL) BLOOD GAS 2 ARTERIAL (07/07/2017 4:05 PM EST) Analysis Performed At Patho logist Time Signature pH Art 7.36 7.[address] - [facility] 7.45 [facility] pCO2 Art 40 35 - 45 [facility] mmHg [facility] pO2 Art 282 (H) 85 - 104 [facility] LABORATORY HCO3 Art 22.1 20.[address] - [facility] 26.0 [facility] mmol/L [facility] BE Art -3.4 (L) -3.0 - 3.0 [facility] mmol/L [facility] Hgb Blood Gas 10.2 (L) 13.7 - [facility] 16.5 gm/dL [facility] O2HB Art 98.4 (H) 94.0 - [facility] 97.0 % [facility] COHB Art 0.3 % [facility] [...] [facility] Comment: Noted by electrical instrument technician. Note: ??Total bilirubin higher than 20 m g/dL may lead to falsely low ionized calcium. CL Whole Blood 101 98 - 107 mmol/L [facility] Gluc Whole Bld 260 (H) 65 - 199 mg/dL [facility] [...] [place] [address] (ABNORMAL) BLOOD GAS 2 ARTERIAL (07/07/2017 2:29 PM EST) Analysis Performed At Patho logist Time Signature pH Art 7.43 7.35 - [facility] 7.45 [facility] pCO2 Art 36 35 - 45 [facility]ORY pO2 Art 221 (H) 85 - 104 [facility]OR[facility]ORY HCO3 Art 23.2 20.[address] - [facility] 26.0 [facility] mmol/L [facility] BE Art -1.2 -3.0 - 3.0 [facility] mmol/L [facility] Hgb Blood Gas 13.9 13.7 - [facility] 16.5 gm/dL [facility] O2HB Art 97.8 (H) 94.0 - [facility] 97.0 % [facility] COHB Art 1.1 % [facility] [...] Whole Bld 184 65 - 199 mg/dL [facility] [...] [place] [address] Prepare Coag Factors (Non-Hemophilia) (07/07/2017 1:25 PM EST) P athologist Signature Dispensed? Yes [facility] Specimen Anatomical Collection Method Collection Time Receive d Time (Source) Location / / Volume Laterality Blood specimen 07/07/2017 1:25 PM 017 1:21 (specimen) EST PM EST Daphne Shahid MD BLOOD BANK ORDERABLES Performing Organization Address City/State/ZIP Code Phon e Number [address] Prepare RBC (07/07/2017 1:10 PM EST) P athologist Signature Dispensed? Yes [facility] Specimen Anatomical Collection Method Collection Time Receive d Time (Source) Location / / Volume Laterality Blood specimen 07/07/2017 1:10 PM 017 1:05 (specimen) EST PM EST Daphne Shahid MD BLOOD BANK ORDERABLES Performing Organization Address City/[facility]/ZIP Code Phon e Number [address] POCT Glucose (07/07/2017 11:56 AM EST) P athologist Signature POC Glucose 188 65 - [address] [facility] mg/dL [facility] Comment: [...] Health/[facility]/[place] [address] POCT Glucose (07/07/2017 11:05 AM EST) P athologist Signature POC Glucose 168 65 - 199 [facility] mg/dL [facility] [...] [place] [address] POCT Glucose (07/07/2017 10:02 AM EST) athologist Signature POC Glucose 191 65 - 199 [facility] R[facility] mg/dL [facility] Comment: [...] Address City/State/ZIP Code Phon e Number [address] POCT Glucose (07/07/2017 7:53 AM EST) athologist Signature POC Glucose 178 65 - 199 [facility] mg/dL [facility] [...] Organization Address City/State/[place] [address] POCT Glucose (07/07/2017 7:03 AM EST) athologist Signature POC Glucose 188 65 - 199 K[facility] RYAN mg/dL [facility] Comment: [...] Organization Address City/State/[place] [address] (ABNORMAL) POCT Glucose (07/07/2017 6:17 AM EST) athologist Signature POC Glucose 207 (H) 65 - [address] [facility] mg/dL [facility] Comment: [...] Address City/State/ZIP Code Phon e Number [place] [id number]OS[address] Differential, Automated (07/07/2017 5:15 AM EST) athologist [facility] Neutrophils % 69.7 % [facility] Neutr Abs (ANC) 5.32 1.70 - [facility] 6.10 [facility] x10(3)/[facility] LABORATORY Lymphocytes % 16.3 % [facility] Lymphocytes Abs 1.2 0.9 - 3.2 [facility] x10(3)/[facility] LABORATORY Monocytes % 10.5 % [facility] Monocyte Abs 0.8 0.3 - 0.9 [facility] x10(3)/[facility] LABORATORY Eosinophils % 2.5 % [facility] Eosinophils Abs 0.2 0.0 - 0.4 [facility] x10(3)/[facility] LABORATORY Basophils % 0.7 % [facility] Basophils Abs 0.0 0.0 - 0.1 [facility] x10(3)/[facility] [...] Melisa Gran Abs 0.02 0.00 - 0.04 x10(3)/[facility] Specimen Anatomical Collection Method Collection Time Receive d Time (Source) Location / / Volume Laterality Blood specimen 07/07/2017 5:15 AM 017 5:34 (specimen) EST AM EST Resulting Agency Comment Spec In Lab Daphne Shahid MD HEMATOLOGY ORDERABLES Performing Organization Address City/State/ZIP [place] [address] (ABNORMAL) Hemogram (07/07/2017 5:15 AM EST) Analysis Performed At Patho logist Time Signature WBC 7.6 4.0 - 9.5 [facility] x10(3)/[facility] LABORATORY RBC 4.82 4.58 - [facility] 5.54 [facility] x10(6)/[facility] LABORATORY Hemoglobin 14.4 13.7 - [facility] gm/dL [facility] Hematocrit 42.1 40.5 - [facility] 48.5 % [facility] MCV 87.3 82.9 - [facility] 93.1 [facility]ATORY MCH 29.9 27.5 - [facility] 32.1 pg [facility] MCHC 34.2 32.0 - [facility] 35.7 gm/dL [facility] Platelets 188 145 - 357 [facility] x10(3)/[facility] LABORATORY RDWSD 45.1 (H) 36.0 - [facility] 45.0 [facility] LABORATORY RDWCV 14.3 (H) 11.4 - [facility] 13.8 % [facility] MPV 9.4 7.6 - 12.9 [facility] LABORATORY nRBC % Auto 0.0 % [facility] nRBC Abs Auto 0.000 0.000 - [facility] 0.000 [facility] x10(3)/[facility] LABORATORY Specimen Anatomical Collection Method Collection Time Receive d Time (Source) Location / / Volume Laterality Blood specimen 07/07/2017 5:15 AM 017 5:34 (specimen) EST AM EST Resulting Agency Comment Spec In Lab Daphne Shahid MD HEMATOLOGY ORDERABLES Performing Organization Address City/State/[place] [address] (ABNORMAL) APTT (07/07/2017 5:15 [...] Shahid MD HEMATOLOGY ORDERABLES Performing Organization Address City/[facility]/[place] [address] Magnesium (07/07/2017 5:15 AM EST) athologist Signature Magnesium 0.94 0.69 - 1.07 [facility] mmol/L [facility] Specimen Anatomical Collection Method Collection Time Receive d Time (Source) Location / / Volume Laterality Blood specimen 07/07/2017 5:15 AM 017 5:34 (specimen) EST AM EST Resulting Agency Comment Spec In Lab Daphne Shahid MD CHEMISTRY ORDERABLES Performing Organization Address City/[facility]/[place] [address] (ABNORMAL) Basic Metabolic Panel (non-fasting) (07/07/2017 5:15 AM EST) athologist Signature Glucose Lvl 203 (H) 65 - 199 [facility] mg/dL [facility] Comment: [...] [facility] Estimated GFR >60 >=60 [facility] Comment: The reported eGFR should be multiplied b y 1.2 for patients. The MDRD is not an appropriate measure o f renal function for patients with body mass extremes or in patients with acute kidney failure. http://My Rental Units/DHnkdep http://My Rental Units/DHMCnkf Specimen Anatomical Collection Method Collection Time Receive d Time (Source) Location / / Volume Laterality Blood specimen 07/07/2017 5:15 AM 017 5:34 (specimen) EST AM EST Resulting Agency Comment Spec In Lab Daphne Shahid MD CHEMISTRY ORDERABLES Performing Organization Address City/State/ZIP [place] [address] (ABNORMAL) Cardiac Enzymes (LEB/CGP) (07/07/2017 5:15 AM EST) P athologist Signature Troponin-T 2.07 (H) 0.00 - [facility] 0.00 ng/mL [facility] Comment: The 99th percentile for Troponin [...] additional sample may be indicated. Reference: Third [place] Definition of Myocardial Infarction. Journal of the [place] [employer] 2012;60:1581-98 CK, Total 88 0 - 200 unit/L [facility] Specimen Anatomical Collection Method Collection Time Receive d Time (Source) Location / / Volume Laterality Blood specimen 07/07/2017 5:15 AM 017 5:34 (specimen) EST AM EST Resulting Agency Comment Spec In Lab Daphne Shahid MD CHEMISTRY ORDERABLES Performing Organization Address City/[facility]/ZIP Code Phon e Number [address] POCT Glucose (07/07/2017 5:01 AM EST) athologist Signature POC Glucose 182 65 - 199 [facility] mg/dL [facility] [...] Organization Address City/[facility]/ZIP [facility] [place] [address] POCT Glucose (07/07/2017 4:08 AM EST) athologist Signature POC Glucose 199 65 - 199 [facility] mg/dL [facility] [...] Organization Address City/State/[place] [address] POCT Glucose (07/07/2017 3:03 AM EST) athologist Signature POC Glucose 188 65 - 199 [facility] RY[facility] mg/dL [facility] Comment: [...] Organization Address City/State/[place] [address] (ABNORMAL) POCT Glucose (07/07/2017 2:08 AM EST) athologist Signature POC Glucose 200 (H) 65 - [address] [address] mg/dL [facility] Comment: [...] Address City/State/ZIP Code Phon e Number [address] (ABNORMAL) POCT Glucose (07/07/2017 1:31 AM EST) athologist Signature POC Glucose 209 (H) 65 - [address] [facility] mg/dL [facility] Comment: [...] Address City/State/ZIP Code Phon e Number [place] [id number]OSP[address] LAB[address] XR Chest PA or [...] 65 - [address] [facility] mg/dL [facility] Comment: [...] Organization Address City/State/[place] [address] (ABNORMAL) APTT (07/07/2017 12:00 [...] Shahid MD HEMATOLOGY ORDERABLES Performing Organization Address City/[facility]/[place] [address] POCT Glucose (07/06/2017 9:55 PM EST) athologist Signature POC Glucose 109 65 - [address] [address] [facility] mg/dL [facility] Comment: [...] Health/[facility]/[place] [address] POCT Glucose (07/06/2017 9:04 PM EST) athologist Signature POC Glucose 120 65 - [address] [address] [address] [facility] mg/dL [facility] Comment: [...] Health/[facility]/[place] [address] POCT Glucose (07/06/2017 7:45 PM EST) athologist Signature POC Glucose 158 65 - [address] [facility] mg/dL [facility] Comment: [...] Health/[facility]/[place] [address] Potassium (07/06/2017 7:40 PM EST) athologist Signature Potassium 3.9 3.5 - 5.0 [facility] mmol/L [facility] Comment: Please note: ??Patients with WBC [...] Shahid MD CHEMISTRY ORDERABLES Performing Organization Address City/[facility]/[place] [address] (ABNORMAL) Cardiac Enzymes (LEB/CGP) (07/06/2017 7:40 PM EST) athologist Signature Troponin-T 2.27 (H) 0.00 - [facility] 0.00 ng/mL [facility] Comment: The 99th percentile for Troponin [...] additional sample may be indicated. Reference: Third [place] Definition of Myocardial Infarction. Journal of the [place] [employer] 2012;60:1581-98 CK, Total 93 0 - 200 unit/L [facility] Specimen Anatomical Collection Method Collection Time Receive d Time (Source) Location / / Volume Laterality Blood specimen 07/06/2017 7:40 PM 017 7:52 (specimen) EST PM EST Resulting Agency Comment Spec In Lab Daphne Shahid MD CHEMISTRY ORDERABLES Performing Organization Address City/State/[place] [address] (ABNORMAL) POCT Glucose (07/06/2017 7:13 PM EST) athologist Signature POC Glucose 200 (H) 65 - 199 [facility] LABOR[facility]ORY [...] [facility]/[place] [address] (ABNORMAL) APTT (07/06/2017 6:15 [...] Organization Address City/State/[place] [address] (ABNORMAL) POCT Glucose (07/06/2017 6:03 PM EST) athologist Signature POC Glucose 236 (H) 65 - [address] [facility]/dL [facility] Comment: [...] [facility]/[place] [address] (ABNORMAL) POCT Glucose (07/06/2017 5:01 PM EST) athologist Signature POC Glucose 235 (H) 65 - [address] mg/dL [facility] Comment: [...] Organization Address City/State/[place] [address] (ABNORMAL) POCT Glucose (07/06/2017 4:06 PM EST) P athologist Signature POC Glucose 202 (H) 65 - 199 [place] mg/dL [facility] Comment: [...] Organization Address City/State/[place] [address] POCT Glucose (07/06/2017 2:59 PM EST) athologist Signature POC Glucose 178 65 - 199 [place] mg/dL [facility] Comment: [...] Organization Address City/State/[place] [address] (ABNORMAL) Cardiac Enzymes (LEB/CGP) (07/06/2017 2:10 PM EST) P athologist Signature Troponin-T 2.34 (H) 0.[address] - [facility] 0.00 ng/mL [facility] Comment: The 99th percentile for Troponin [...] additional sample may be indicated. Reference: Third [place] Definition of Myocardial Infarction. Journal of the [place] [employer] 2012;60:1581-98 CK, Total 101 0 - 200 unit/L [facility] LABORATORY Specimen Anatomical Collection Method Collection Time Receive d Time (Source) Location / / Volume Laterality Blood specimen 07/06/2017 2:10 PM 017 2:26 (specimen) EST PM EST Resulting Agency Comment Spec In Lab Daphne Shahid MD CHEMISTRY ORDERABLES Performing Organization Address City/State/ZIP [place] [address] POCT Glucose (07/06/2017 2:08 PM EST) P athologist Signature POC Glucose 192 65 - [address] [facility] mg/dL [facility] Comment: [...] Address City/State/ZIP Code Phon e Number [address] POCT Glucose (07/06/2017 1:04 PM EST) P athologist Signature POC Glucose 162 65 - 199 [facility]dL [facility] LAB[facility]ORY [...] [facility]/ZIP Code Phon e Number [address] POCT Glucose (07/06/2017 12:05 PM EST) P athologist Signature POC Glucose 196 65 - 199 [facility] mg/dL [facility] LABOR[facility]ORY [...] Organization Address City/State/[place] [address] EKG 12 Lead (07/06/2017 12:00 PM EST) Component Value Ref Range Test Analysis Performed Pathologis t Method Time At Signature Ventricular rate 91 BPM MUSE SYSTEM Atrial Rate 91 BPM MUSE SYSTEM P-R Interval 140 ms MUSE SYSTEM QRS Duration 94 ms MUSE SYSTEM Q-T Interval 394 ms MUSE SYSTEM QTC Calculated 484 ms MUSE SYSTEM (Bezet) Calculated P Makoti 36 degrees MUSE SYSTEM Calculated R Makoti -19 degrees MUSE SYSTEM Calculated T Makoti 104 degrees MUSE SYSTEM INTERPRETATION Normal sinus rhythm MUSE SYSTEM 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) ST & T wave abnormality, consider lateral ischemia Abnormal ECG When compared with ECG of 05-JUL-2017 20:39, No significant change was found Confirmed by MD Luci, Taurus Braun ([id number]) on 07/06/2017 5:07:33 PM Specimen Anatomical Collection Method Collection Time Receive d Time (Source) Location / / Volume Laterality 07/06/2017 12:00 07/06/2017 5:07 PM EST PM EST Daphne Shahid MD ECG ORDERABLES Performing Organization Address [facility]/ZIP Code Phon e Number MUSE SYSTEM ABORH Recheck Status (07/06/2017 12:00 PM EST) [facility] Method Time Signature ABORH Type Completed [facility] LABORATORY Specimen Anatomical Collection Method Collection Time Receive d Time (Source) Location / / Volume Laterality Blood specimen 07/06/2017 12:00 7 (specimen) PM EST 12:24 PM EST Resulting Agency Comment Spec In Lab Daphne Shahid MD BLOOD BANK ORDERABLES Performing Organization Address City/[facility]/[place] [address] Antibody screen (07/06/2017 12:00 PM EST) [facility] Method Time Signature Ab Screen Negative [facility] LABORATORY Expires at 07/09/2017 [facility] 235 on: [facility] Specimen Anatomical Collection Method Collection Time Receive d Time (Source) Location / / Volume Laterality Blood specimen 07/06/2017 12:00 7 (specimen) PM EST 12:24 PM EST Resulting Agency Comment Spec In Lab Daphne Shahid MD BLOOD BANK ORDERABLES Performing Organization Address City/[facility]/[place] [address] ABO/Rh Typing (07/06/2017 12:00 [...] Organization Address City/State/[place] [address] Prothrombin Time (07/06/2017 11:24 AM EST) athologist Signature PT 13.3 11.8 - 14.0 [facility] LABORATORY INR 1.0 0.9 [...] Shahid MD HEMATOLOGY ORDERABLES Performing Organization Address City/[facility]/[place] [address] (ABNORMAL) APTT (07/06/2017 11:24 [...] Address City/State/ZIP Code Phon e Number [address] POCT Glucose (07/06/2017 11:02 AM EST) athologist Signature POC Glucose 187 65 - 199 [place] mg/dL [facility] Comment: [...] Organization Address City/State/[place] [address] POCT Glucose (07/06/2017 10:18 AM EST) athologist Signature POC Glucose 193 65 - 199 [place] mg/dL [facility] Comment: [...] Organization Address City/State/[place] [address] POCT Glucose (07/06/2017 9:25 AM EST) athologist Signature POC Glucose 182 65 - 199 [place] mg/dL [facility] Comment: [...] Organization Address City/State/[place] [address] (ABNORMAL) Cardiac Enzymes (LEB/CGP) (07/06/2017 8:10 AM EST) athologist Signature Troponin-T 2.26 (H) [facility] Comment: The 99th percentile for Troponin [...] additional sample may be indicated. Reference: Third [place] Definition of Myocardial Infarction. Journal of the [place] [employer] 2012;60:1581-98 CK, Total 124 0 - 200 unit/L [facility] LABORATORY Specimen Anatomical Collection Method Collection Time Receive d Time (Source) Location / / Volume Laterality Blood specimen 07/06/2017 8:10 AM 017 8:23 (specimen) EST AM EST Resulting Agency Comment Spec In Lab Daphne Shahid MD CHEMISTRY ORDERABLES Performing Organization Address City/State/Z[place] [address] Magnesium (07/06/2017 8:10 AM EST) athologist Signature Magnesium 0.84 0.69 - 1.07 [facility] mmol/L [facility] Specimen Anatomical Collection Method Collection Time Receive d Time (Source) Location / / Volume Laterality Blood specimen 07/06/2017 8:10 AM 017 8:21 (specimen) EST AM EST Resulting Agency Comment Spec In Lab Daphne Shahid MD CHEMISTRY ORDERABLES Performing Organization Address City/[facility]/ZIP [place] [address] (ABNORMAL) Basic Metabolic Panel (non-fasting) (07/06/2017 8:10 AM EST) P athologist Signature Glucose Lvl 199 65 - [address] [facility] mg/dL [facility] Comment: [...] [facility] Estimated GFR >60 >=60 [facility] Comment: The reported eGFR should be multiplied b y 1.2 for patients. The MDRD is not an appropriate measure o f renal function for patients with body mass extremes or in patients with acute kidney failure. http://Hachimenroppi.Thinkfuse/DHnkdep http://Hachimenroppi.Thinkfuse/DHMCnkf Specimen Anatomical Collection Method Collection Time Receive d Time (Source) Location / / Volume Laterality Blood specimen 07/06/2017 8:10 AM 017 8:21 (specimen) EST AM EST Resulting Agency Comment Spec In Lab Daphne Shahid MD CHEMISTRY ORDERABLES Performing Organization Address City/State/[place] [address] POCT Glucose (07/06/2017 7:34 AM EST) P athologist Signature POC Glucose 198 65 - 199 [facility]dL [facility] LABOR[facility]ORY [...] Address City/State/ZIP Code Phon e Number [address] POCT Glucose (07/06/2017 7:03 AM EST) athologist Signature POC Glucose 181 65 - 199 [facility] mg/dL [facility] LABORATORY [...] Organization Address City/State/[place] [address] XR Chest PA or [...] 65 - [address] [facility] mg/dL [facility] Comment: [...] [place] [address] POCT Glucose (07/06/2017 5:08 AM EST) athologist Signature POC Glucose 154 65 - [address] [facility] mg/dL [facility] Comment: [...] Address City/State/ZIP Code Phon e Number [address] POCT Glucose (07/06/2017 4:05 AM EST) athologist Signature POC Glucose 142 65 - [address] [facility] mg/dL [facility] Comment: [...] Address City/State/ZIP Code Phon e Number [address] POCT Glucose (07/06/2017 3:00 AM EST) athologist Signature POC Glucose 116 65 - [address] [facility] mg/dL [facility] Comment: [...] Address City/State/ZIP Code Phon e Number [address] Potassium (07/06/2017 2:20 AM EST) athologist Signature Potassium 3.9 3.5 - 5.0 [facility] mmol/L [facility] Comment: Please note: ??Patients with WBC [...] [place] [address] Differential, Automated (07/06/2017 2:20 AM EST) athologist Signature Neutrophils % 72.9 % [facility] LABORATORY Neutr Abs (ANC) 5.53 1.70 - [facility] 6.10 [facility] x10(3)/[facility] LABORATORY Lymphocytes % 16.4 % [facility] Lymphocytes Abs 1.2 0.9 - [address].2 [facility] x10(3)/[facility] LABORATORY Monocytes % 9.4 % [facility] Monocyte Abs 0.7 0.3 - [address].9 [facility] x10(3)/[facility] LABORATORY Eosinophils % 0.5 % [facility] Eosinophils Abs 0.0 0.0 - [address].4 [facility] x10(3)/[facility] LABORATORY Basophils % 0.4 % [facility] Basophils Abs 0.0 0.0 - [address].1 [facility] x10(3)/[facility] LABORATORY Immature Gran % 0.40 % [facility] Comment: Immature granulocytes(IG's)percentage an d absolute count will include metamyelocytes, myelocytes, and promyelo cytes. Blood smears from CBCs yielding IG's will be scanned manually for concor dance. If this scan disagrees with the automated IG or if promyelocytes are not ed, a manual differential will be performed. Melisa Gran Abs 0.03 0.00 - 0.04 x10(3)/[facility] LABORATORY Specimen Anatomical Collection Method Collection Time Receive d Time (Source) Location / / Volume Laterality Blood specimen 07/06/2017 2:20 AM 017 2:33 (specimen) EST AM EST Resulting Agency Comment Spec In Lab Daphne Shahid MD HEMATOLOGY ORDERABLES Performing Organization Address City/[facility]/ZIP [place] [address] (ABNORMAL) Hemogram (07/06/2017 2:20 AM EST) Analysis Performed At Patho logist Time Signature WBC 7.6 4.0 - 9.5 [facility] x[facility](3)/[facility] LABORATORY RBC 4.52 (L) 4.58 - [place] 5.54 [facility] x10(6)/[facility] LABORATORY Hemoglobin 13.4 (L) 13.7 - [facility] 16.5 gm/dL [facility] Hematocrit 39.7 (L) 40.5 - [facility] 48.5 % [facility] MCV 87.8 82.9 - [facility] R[facility]AN 93.1 [facility] LABORATORY MCH 29.6 27.5 - [place] R[place] 32.1 pg [facility] MCHC 33.8 32.0 - [facility] 35.7 gm/dL [facility] Platelets 189 145 - 357 [facility] x10(3)/[facility] LABORATORY RDWSD 45.6 (H) 36.0 - [facility] 45.0 [facility] LABORATORY RDWCV 14.3 (H) 11.4 - [facility] RYAN 13.8 % [facility] MPV 9.1 7.6 - 12.9 [facility] nRBC % Auto 0.0 % [facility] LABORATORY nRBC Abs Auto 0.000 0.000 - [place] 0.000 [facility] x10(3)/[facility] LABORATORY Specimen Anatomical Collection Method Collection Time Receive d Time (Source) Location / / Volume Laterality Blood specimen 07/06/2017 2:20 AM 017 2:33 (specimen) EST AM EST Resulting Agency Comment Spec In Lab Daphne Shahid MD HEMATOLOGY ORDERABLES Performing Organization Address City/State/ZIP [place] [address] (ABNORMAL) APTT (07/06/2017 2:20 [...] Shahid MD HEMATOLOGY ORDERABLES Performing Organization Address City/[facility]/[place] [address] POCT Glucose (07/06/2017 2:20 AM EST) athologist Signature POC Glucose 115 65 - [address] [facility] mg/dL [facility] Comment: [...] Organization Address City/State/[place] [address] (ABNORMAL) Cardiac Enzymes (LEB/CGP) (07/06/2017 2:20 AM EST) athologist Signature Troponin-T 2.13 (H) 0.00 - [facility] 0.00 ng/mL [facility] Comment: The 99th percentile for Troponin [...] additional sample may be indicated. Reference: Third [place] Definition of Myocardial Infarction. Journal of the [place] College [employer]iology 2012;60:1581-98 CK, Total 129 0 - 200 unit/L [facility] LABOR[facility]ORY Specimen Anatomical Collection Method Collection Time Receive d Time (Source) Location / / Volume Laterality Blood specimen 07/06/2017 2:20 AM 017 2:33 (specimen) EST AM EST Resulting Agency Comment Spec In Lab Daphne Shahid MD CHEMISTRY ORDERABLES Performing Organization Address City/State/ZIP Code Phon e Number [place] [id number] (ABNORMAL) Hemoglobin A1c (07/06/2017 [...] S67-25 Est Avg Gluc See note mg/dL [place] [...] hemoglobinopathies. Additional resources are available on [facility] ADA website. Macario HAMMOND, Ruthann J, Deysi R, et al. ??Tr anslating the A1C assay into estimated average glucose values. ??Diabetes Care 2008:31(8):3357-3430. Specimen Anatomical Collection Method Collection Time Receive d Time (Source) Location / / Volume Laterality Blood specimen 07/06/2017 2:20 AM 017 2:34 (specimen) EST AM EST Resulting Agency Comment Spec In Lab Daphne Shahid MD CHEMISTRY ORDERABLES Performing Organization Address City/State/ZIP [place] [address] (ABNORMAL) Lipid Panel (07/06/2017 2:20 AM EST) [facility] Method Time Signature Chol, Total 150 <=239 [place] mg/dL [facility] LABORATORY Triglycerides 129 <=199 [place] mg/dL [facility] LABORATORY HDL 32 (L) >=40 [place] mg/dL [facility] LABORATORY LDL Cholesterol 92 <=190 [place] mg/dL [facility] LABORATORY Chol/HDL Ratio 4.7 ratio [place] [facility] LABOR[facility]ORY Lipid See Note [place] Hernandes [facility] LAB[facility] Comment: Lipid management should be guided by a p atient? s ASCVD risk, goals and preferences. ACC/AHA Guidelines recommend high intens ity statin if clinical ASCVD or LDL greater than or equal to 190 mg/dL. http://Hachimenroppi.com/CRF-EYN-Wzkpkwljq Adults aged 40-75 with LDL 70-189 mg/dL should have their 10 year ASCVD risk estimated with the ACC/AHA ASCVD risk es timator http://tools.acc.org/FQINK-Zcyz-Nibvndpr r/ Statin should be discussed if risk [...] Organization Address City/State/[place] [address] POCT Glucose (07/06/2017 1:09 AM EST) P athologist Signature POC Glucose 121 65 - [address] [facility] mg/dL [facility] Comment: [...] Organization Address City/State/[place] [address] POCT Glucose (07/06/2017 12:06 AM EST) athologist Signature POC Glucose 147 65 - 199 [facility] mg/dL [facility] LABORATORY [...] Organization Address City/State/[place] [address] (ABNORMAL) POCT Glucose (07/05/2017 10:56 PM EST) athologist Signature POC Glucose 200 (H) 65 - [address] [facility] mg/dL [facility] Comment: [...] [place] [address] (ABNORMAL) POCT Glucose (07/05/2017 10:05 PM EST) athologist Signature POC Glucose 225 (H) 65 - 199 [place] mg/dL [facility] Comment: [...] [place] [address] (ABNORMAL) POCT Glucose (07/05/2017 9:02 PM EST) P athologist Signature POC Glucose 301 (H) 65 - 199 [place] DAV[place] mg/dL [facility] Comment: [...] Organization Address City/State/[place] [address] XR Chest PA or [...] 474 ms MUSE SYSTEM (Bezet) Calculated P Makoti 50 degrees MUSE SYSTEM Calculated R Makoti -28 degrees MUSE SYSTEM Calculated T Makoti 90 degrees MUSE SYSTEM INTERPRETATION Sinus tachycardia [...] (H) 1.70 - [facility] 6.10 [facility] x10(3)/[facility] L LABORATORY Lymphocytes % 7.0 % [facility] LABORATORY Lymphocytes Abs 0.7 (L) 0.9 - 3.2 [facility] x10(3)/[facility] LABORATORY Monocytes % 3.7 % [facility] LABORATORY Monocyte Abs 0.4 0.3 - 0.9 [facility] x10(3)/[facility] LABORATORY Eosinophils % 0.1 % [facility] LABORATORY Eosinophils Abs 0.0 0.0 - 0.4 [facility] x10(3)/[facility] LABORATORY Basophils % 0.2 % [facility] LABORATORY Basophils Abs 0.0 0.0 - 0.1 [facility] x10(3)/[facility] LABORATORY Immature Gran % 0.60 [...] [place] [address] (ABNORMAL) Hemogram (07/05/2017 8:20 PM EST) Analysis Performed At Patho logist Time Signature WBC 10.3 (H) 4.0 - 9.5 [facility] x10(3)/[facility] LABORATORY RBC 4.64 4.58 - [place] RYAN 5.54 [facility] x10(6)/[facility] LABORATORY Hemoglobin 14.1 13.7 - [facility] 16.5 gm/dL [facility] Hematocrit 40.8 40.5 - [place] RY[place] 48.5 % [facility] MCV 87.9 82.9 - [facility] 93.1 fL [facility] MCH 30.4 27.5 - [place] R[place] 32.1 pg [facility] MCHC 34.6 32.0 - [place] R[place] 35.7 gm/dL [facility] Platelets 204 145 - 357 [facility] x10(3)/[facility] LABORATORY RDWSD 46.1 (H) 36.0 - [place] RYAN 45.0 [facility] LABORATORY RDWCV 14.5 (H) 11.4 - [facility] 13.8 % [facility]AT[facility] MPV 9.7 7.6 - 12.9 [facility] LABORATORY nRBC % Auto 0.0 % [facility] LABORATORY nRBC Abs Auto 0.000 0.000 - [place] ZHAORYAN 0.000 [facility] x10(3)/[facility] LABORATORY Specimen Anatomical Collection Method Collection Time Receive d Time (Source) Location / / Volume Laterality Blood specimen 07/05/2017 8:20 PM 017 8:27 (specimen) EST PM EST Resulting Agency Comment Spec In Lab Daphne Shahid MD HEMATOLOGY ORDERABLES Performing Organization Address City/[facility]/ZIP Code Phon e Number [address] APTT (07/05/2017 8:20 PM [...] Shahid MD HEMATOLOGY ORDERABLES Performing Organization Address City/[facility]/ZIP [facility] [place] [address] (ABNORMAL) Cardiac Enzymes (LEB/CGP) (07/05/2017 8:20 PM EST) athologist Signature Troponin-T 2.11 (H) 0.00 - [facility] 0.00 ng/mL [facility] Comment: The 99th percentile for Troponin [...] additional sample may be indicated. Reference: Third [place] Definition of Myocardial Infarction. Journal of the [place] [employer] 2012;60:1581-98 CK, Total 149 0 - 200 unit/L [facility] LABORATORY Specimen Anatomical Collection Method Collection Time Receive d Time (Source) Location / / Volume Laterality Blood specimen 07/05/2017 8:20 PM 017 8:27 (specimen) EST PM EST Resulting Agency Comment Spec In Lab Daphne Shahid MD CHEMISTRY ORDERABLES Performing Organization Address City/[facility]/[place] [address] (ABNORMAL) Magnesium (07/05/2017 8:20 PM EST) P athologist Signature Magnesium 0.68 (L) 0.69 - 1.07 [facility] mmol/L [facility] Specimen Anatomical Collection Method Collection Time Receive d Time (Source) Location / / Volume Laterality Blood specimen 07/05/2017 8:20 PM 017 8:27 (specimen) EST PM EST Resulting Agency Comment Spec In Lab Daphne Shahid MD CHEMISTRY ORDERABLES Performing Organization Address City/State/[place] [address] (ABNORMAL) Basic Metabolic Panel (non-fasting) (07/05/2017 8:20 PM EST) athologist Signature Glucose Lvl 321 (H) 65 - [address] [facility] mg/dL [facility] Comment: [...] [facility] Estimated GFR >60 >=60 [facility] LABORATORY Comment: The reported eGFR should be multiplied b y 1.2 for patients. The MDRD is not an appropriate measure o f renal function for patients with body mass extremes or in patients with acute kidney failure. http://Hachimenroppi.Thinkfuse/DHnkdep http://My Rental Units/DHMCnkf Specimen Anatomical Collection Method Collection Time Receive d Time (Source) Location / / Volume Laterality Blood specimen 07/05/2017 8:20 PM 017 8:27 (specimen) EST PM EST Resulting Agency Comment Spec In Lab Daphne Shahid MD CHEMISTRY ORDERABLES Performing Organization Address City/State/[place] [address] (ABNORMAL) POCT Glucose (07/05/2017 7:32 PM EST) athologist Signature POC Glucose 296 (H) 65 - 199 [facility] mg/dL [facility]OR[facility] Comment: [...] [place] [address] CARDIAC CATHETERIZATION (07/05/2017 6:47 PM EST) Anatomical Region Laterality Modality Other Specimen (Source) Anatomical Location Collection Method / Collectio n Time Received Time / Laterality Volume Narrative 07/05/2017 7:27 PM EST ?[facility] ? Cardiac Cathete rization/Intervention Report ? Patient Name: Natalya, Gregory ? Procedure Date: 07/05/2017 ? A #: [id number] ? Primary Physician: Clarisa, Jet Sampson ? Case #: [id number] ? File Name: [id number] ? Catheterization Order Number: [id number] ? [facility] ? Final Report [place], [place] ? Patient Name: ? Gregory Natalya ?ID#: ?[id number] ? : ?1945 ? Procedure Date: ? [...] presented with: non -STEMI (w/i 7 days). [place] ?Cardiovascular Society angina c lass was IV. 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 ? Jet Mckenna, M.D. ? Electronically Signed by: Jet Sampson DeVlatrice s, M.D. ? Report Finalized: 07/05/2017 ??19:23 ? Report Last Ammended: 10/26/2017 ??10:29 ? Procedure Note Jet Mckenna MD - 10/26/2017Formatt ing of this note might be different from the original. [facility] Cardiac Catheterization/Intervention Re port Patient Name: Gregory Hoang Procedure Date: 07/05/2017 A #: [id number] Primary Physician: Jet Mckenna Case #: [id number] File Name: [id number] Catheterization Order Number: [id number] [facility] Final Report [place], [place] Patient Name: Gregory Hoang ID#: [id number] 3- : 1945 Procedure Date: July 05, [...] presented with: non-STEMI ( w/i 7 days). [place] [employer] angina class was IV. No [...] y and IABP insertion in labor relations director. Jet Mckenna M.D. Electronically Signed by: [...] 8:53 AM EST Procedure: ?Transthoracic Echocardiogram Patient: ?ANTALYA Mccollum ? (Age): 1945(72y) Med Rec#: ? [id number] ?Sex: ?M ? Site Loc: ? [facility] ?Ht / Wt: ??173(cm)/86(kg) Pt. Loc: ?[facility] ? BSA: ?2 Study Date: ?? 07/05/2017 ?Pt. Type: Inpatient Tape: ? Referring: Daphne Shahid ([id number]) Referring: MANDA ALCANTAR Reading: Blade Preston ([id number]) Director Of Institutional Giving: Dayami Paula BA, [facility] [...] E-wave Vmax ?0.8 ?m/sec ? MV deceleration [id number] ?msec ? MV A-wave Vmax ?0.8 ?m/sec [...] ? Mid-Inferior ?Akinetic ? Mid-Inferoseptal ?Hypokinetic ? Coats-Septal ? Akinetic ? Coats-Anterior ? Hypokinetic ? Coats-Lateral ?Hypokinetic ? Coats-Inferior ? Akinetic ? Coats-Tip ?Akinetic ? This report has been electronically sign ed by: _ Blade Preston MD ? 07/06/2017 08 :53:15 Images reviewed and interpretation verif ied [facility] Cardiac Ultrasound Laboratory Procedure Note Blade Preston MD - 07/06/2017Formatt ing of this note might be different from the original. Procedure: Transthoracic Echocardiogram Patient: NATALYA MCBRIDE(Age): [birth year]72y) Med Rec#: [id number] Sex: M [facility] Loc: [facility] Ht / Wt: 173(cm)/86(kg) Pt. Loc: U BSA: 2 Study Date: 07/05/2017 Pt. Type: Inpatie nt Tape: Referring: Daphne Shahid ([id number]) Referring: MANDA ALCANTAR Reading: Blade Preston ([id number]) Director Of Institutional Giving: Dayami Paula BA, [facility] [...] MV E-wave Vmax 0.8 m/sec MV deceleration [id number] msec MV A-wave Vmax 0.8 m/sec MV [...] Hypokinetic Mid-Posterolateral Hypokinetic Mid-Inferior Akinetic Mid-Inferoseptal Hypokinetic Coats-Septal Akinetic Coats-Anterior Hypokinetic Coats-Lateral Hypokinetic Coats-Inferior Akinetic Coats-Tip Akinetic This report has been electronically sign ed by: _ Blade Preston MD 07/06/2017 08:53:15 Images reviewed and interpretation verif ied [facility] Cardiac Ultrasound Laboratory Daphne Shahid MD ECHO ORDERABLES Differential, Automated (07/05/2017 4:55 PM EST) athologist Signature Neutrophils % 77.0 % [facility] LABORATORY Neutr Abs (ANC) 5.26 1.70 - [facility] 6.10 [facility] x10(3)[facility] LABORATORY Lymphocytes % 13.3 % [facility] Lymphocytes Abs 0.9 0.[address] [facility] x10(3)/[facility] LABORATORY Monocytes % 8.2 % [facility] Monocyte Abs 0.6 0.3 - [address]9 [facility] x10(3)/[facility] LABORATORY Eosinophils % 0.7 % [facility] Eosinophils Abs 0.0 0.[address] - [address] [facility] x10(3)/[facility] LABORATORY Basophils % 0.4 % [facility] Basophils Abs 0.0 0.[address] - [address] [facility] x10(3)/[facility] [...] Melisa Gran Abs 0.03 0.00 - 0.04 x10(3)/[facility] Y [facility] LABORATORY Specimen Anatomical Collection Method Collection Time Receive d Time (Source) Location / / Volume Laterality Blood specimen 07/05/2017 4:55 PM 017 5:24 (specimen) EST PM EST Resulting Agency Comment Spec In Lab Daphne Shahid MD HEMATOLOGY ORDERABLES Performing Organization Address City/State/Z[place] [address] (ABNORMAL) Hemogram (07/05/2017 4:55 PM EST) Analysis Performed At Patho logist Time Signature WBC 6.8 4.0 - 9.5 [facility] x[facility](3)/[facility] LABORATORY RBC 4.67 4.58 - [place] RYAN 5.54 [facility] x10(6)/[facility] LABORATORY Hemoglobin 14.0 13.7 - [facility] 16.5 gm/dL [facility] Hematocrit 41.0 40.5 - [facility] 48.5 % [facility] MCV 87.8 82.9 - [facility] RYAN 93.1 [facility] LABORATORY MCH 30.0 27.5 - [place] RY[place] 32.1 pg [facility] MCHC 34.1 32.0 - [facility] RYAN 35.7 gm/dL [facility] Platelets 197 145 - 357 [facility] x10(3)/[facility] LABORATORY RDWSD 46.4 (H) 36.0 - [facility] RYAN 45.0 [facility] LABORATORY RDWCV 14.5 (H) 11.4 - [facility] RYAN 13.8 % [facility] MPV 9.7 7.6 - 12.9 [facility] nRBC % Auto 0.0 % [facility] LABORATORY nRBC Abs Auto 0.000 0.000 - [facility] RYAN 0.000 [facility] x10(3)/[facility] LABORATORY Specimen Anatomical Collection Method Collection Time Receive d Time (Source) Location / / Volume Laterality Blood specimen 07/05/2017 4:55 PM 017 5:24 (specimen) EST PM EST Resulting Agency Comment Spec In Lab Daphne Shahid MD HEMATOLOGY ORDERABLES Performing Organization Address City/State/ZIP Code Phon e Number [facility] [place] [address] (ABNORMAL) Cardiac Enzymes (LEB/CGP) (07/05/2017 4:55 PM EST) athologist Signature Troponin-T 1.69 (H) 0.00 - [place] DAVIS 0.00 ng/mL [facility] Comment: The 99th percentile for Troponin [...] additional sample may be indicated. Reference: Third [place] Definition of Myocardial Infarction. Journal of the [place] College [employer] 2012;60:1581-98 CK, Total 191 0 - 200 unit/L [facility] LABORATORY Specimen Anatomical Collection Method Collection Time Receive d Time (Source) Location / / Volume Laterality Blood specimen 07/05/2017 4:55 PM 017 5:56 (specimen) EST PM EST Resulting Agency Comment Spec In Lab Daphne Shahid MD CHEMISTRY ORDERABLES Performing Organization Address City/State/ZIP [place] [address] (ABNORMAL) pro-Brain Natriuretic Peptide (07/05/2017 4:55 PM EST) athologist Signature ProBNP 1,598 (H) <=125 [facility] pg/mL [facility] Specimen Anatomical Collection Method Collection Time Receive d Time (Source) Location / / Volume Laterality Blood specimen 07/05/2017 4:55 PM 017 5:24 (specimen) EST PM EST Resulting Agency Comment Spec In Lab Daphne Shahid MD CHEMISTRY ORDERABLES Performing Organization Address City/State/ZIP Code Phon e Number [address] Magnesium (07/05/2017 4:55 PM EST) P athologist Signature Magnesium 0.78 0.69 - 1.07 [facility] mmol/L [facility] Specimen Anatomical Collection Method Collection Time Receive d Time (Source) Location / / Volume Laterality Blood specimen 07/05/2017 4:55 PM 017 5:24 (specimen) EST PM EST Resulting Agency Comment Spec In Lab Daphne Shahid MD CHEMISTRY ORDERABLES Performing Organization Address City/[facility]/ZIP Code Phon e Number [address] (ABNORMAL) Basic Metabolic Panel (non-fasting) (07/05/2017 4:55 PM EST) P athologist Signature Glucose Lvl 230 (H) 65 - [address] [facility] mg/dL [facility] Comment: [...] Anion Gap 14 5 - 15 mmol/L [facility] LABOR[facility] Calcium 8.5 8.5 - 10.5 mg/dL [facility] Linnea [facility] Estimated GFR >60 >=60 [place] R[place] [facility] LABOR[facility] Comment: The reported eGFR should be multiplied b y 1.2 for patients. The MDRD is not an appropriate measure o f renal function for patients with body mass extremes or in patients with acute kidney failure. http://My Rental Units/nkdep http://My Rental Units/[facility] Specimen Anatomical Collection Method Collection Time Receive d Time (Source) Location / / Volume Laterality Blood specimen 07/05/2017 4:55 PM 017 5:24 (specimen) EST PM EST Resulting Agency Comment Spec In Lab Daphne Shahid MD CHEMISTRY ORDERABLES Performing Organization Address City/[facility] [place] [address] (ABNORMAL) APTT (07/05/2017 4:55 [...] Shahid MD HEMATOLOGY ORDERABLES Performing Organization Address City/[facility]/ZIP [facility] [place] [address] (ABNORMAL) POCT Glucose (07/05/2017 4:53 PM EST) P athologist Signature POC Glucose 208 (H) 65 - [address] [facility] mg/dL [facility] Comment: [...] [place] [address] EKG 12 Lead (07/05/2017 4:32 PM EST) Component Value Ref Range Test Analysis Performed Pathologis t Method Time At Signature Ventricular rate 97 BPM MUSE SYSTEM Atrial Rate 97 BPM MUSE SYSTEM P-R Interval 148 ms MUSE SYSTEM QRS Duration 96 ms MUSE SYSTEM Q-T Interval 364 ms MUSE SYSTEM QTC Calculated 462 ms MUSE SYSTEM (Bezet) Calculated P Makoti 48 degrees MUSE SYSTEM Calculated R Makoti -33 degrees MUSE SYSTEM Calculated T Makoti 98 degrees MUSE SYSTEM INTERPRETATION Normal sinus [...] 4:32 PM 7 9:56 EST PM EST Daphen Shahid MD ECG ORDERABLES Performing [...] atherosclerosis of unspecified type of vessel, [place] or graft Cardiomyopathy, ischemic Other specified forms [...] post-op day 1 in the AM Give MS if unable to take PO, Routine Given [...] in dextrose 5% 250 mL EST infusion (ENVIRONMENTAL RESOURCE SPECIALIST) CONTINUOUS PRN, Starting on Wed07/05/17 at 1837, [...] post-op day 1 in the AM Give MS if unable to take PO, Routine atorvastatin [...] RN) 0900 (Not Given - Provider: Em jeo RN - Reason: Patient/family refused) 0900 (Not [...] post-op day 1 in the AM Give MS if unable to take PO
Routine Group [...]
Routine documented in this encounter Care Teams Technician Automatic Relationship Specialty Start Date End Date Lovely Vicente MD PCP - General 04/16/[address] [place] [address] documented as of this encounter
--- OUTSIDE RECORDS SUMMARY | 2022-04-10 09:05 | XMS_ITS | Encounter Summary ---
:1945 [place] [address] Care Team Providers Name Role Phone Lovely Vicente MD Primary Care Provider Reason for Visit Reason Onset Date Comments Other 12/09/2016 RESULTS Encounter Details Date Type Department Care Team Description 12/09/2016 Telephone Dermatology at [facility] Halima Cadet MD Other (RESULTS) [address] [facility] [place] [address] [facility] [phone] [place], [place] [address] (Wo rk) Social History Tobacco [...] EDT Spoke with patient's , Kisha (personal loss prevention representative). I advised her Don's pathology results [...] back. She can be reached back at [phone] documented in this encounter Plan of Treatment Upcoming Encounters Date Type Specialty Care Team Description 05/28/2022 Appointment Cardiology Zulma Dolan MD [facility] [address] [place], [place] [address] (Wo rk) 05/28/2022 Laboratory Appointment Lab 05/28/2022 Office Visit Cardiology Zulma Dolan MD [facility] [place] [address] Liz Poole PA [facility] [place] [address] 06/10/2022 Office Visit Dermatology Laura Scherer MD [facility] [address] [place], [place] [address] (Wo rk) documented as of this encounter Visit Diagnoses Not on filedocumented in this encounter Care Teams Blood Collector Relationship Specialty Start Date End Date Lovely Vicente MD PCP - General 04/16/[address] [place] [address] documented as of this encounter
--- OUTSIDE RECORDS SUMMARY | 2022-04-10 09:05 | XMS_ITS | Encounter Summary ---
:1945 Author Organization [place] [address] Care Team Providers Name Role Phone Lovely Vicente MD Primary Care Provider Reason for Visit Reason Comments Follow-up Encounter Details Date Type Department Care Team Description 06/03/2017 Office Visit Dermatology at [facility] benign nevi; Abdelrahman HOOPER MD History of melanoma; [address] [facility] History of dysplastic nevus; [place] [address] Skin exam for malignant neoplasm [phone] [facility] [place], [place] [address] Social History Tobacco Use Types [...] Zulma Dolan MD [facility] [place], [place] [address] (Wo rk) 05/28/2022 Laboratory Appointment Lab 05/28/2022 Office Visit Cardiology Zulma Dolan MD [facility] [place] [address] Liz Poole PA [facility] [place] [address] 06/10/2022 Office Visit Dermatology Laura Scherer MD [facility] [address] [place], [place] [...] documented in this encounter Care Teams Medical Assistant Relationship Specialty Start Date End Date Lovely Vicente MD PCP - General 04/16/15 [facility] [address] [place] [address] documented as of this encounter
--- OUTSIDE RECORDS SUMMARY | 2022-04-10 09:05 | XMS_ITS | Encounter Summary ---
:1945 Author Organization [facility] [address] Care Team Providers Name Role Phone Lovely Vicente MD Primary Care Provider Reason for Visit Reason Onset Date Comments Medication Refill 12/24/2016 Encounter Details Date Type Department Care Team Description 12/24/2016 Refill Endocrinology at [facility] Luz Stallings MD [facility] [place] [address] ENDOCRINOLOGY DEPT [phone] [place], [place] [address] (Wo rk) Social History Tobacco [...] Zulma Dolan MD [facility] er [address] [place] [address] (Wo rk) 05/28/2022 Laboratory Appointment Lab 05/28/2022 Office Visit Cardiology Zulma Dolan MD [facility] [place] [address] Liz Poole PA [facility] [place] [address] 06/10/2022 Office Visit Dermatology Laura Scherer MD [facility] [address] [place], [place] [address] (Wo rk) documented as of this encounter Visit Diagnoses Not on filedocumented in this encounter Care Teams Emergency Department Physician Relationship Specialty Start Date End Date Lovely Vicente MD PCP - General 04/16/[address] [place], [place] [address] documented as of this encounter
--- OUTSIDE RECORDS SUMMARY | 2022-04-10 09:05 | XMS_ITS | Encounter Summary ---
:1945 Author Organization [facility] [address] Care Team Providers Name Role Phone Lovely Vicente MD Primary Care Provider Encounter Details Date Type Department Care Team Description 09/03/2016 Laboratory Appointment Lab at [facility] Hx of [facility] [place] [id number] Social History Tobacco Use Types Packs/Day Years [...] [facility] [place] [address] [place] [address] (Wo rk) 05/28/2022 Laboratory Appointment Lab 05/28/2022 Office Visit Cardiology Zulma Dolan MD [facility] [place] [address] Liz Poole PA [facility] [place] [address] 06/10/2022 Office Visit Dermatology Laura Scherer MD [facility] ER [address]MAT [place], [place] [address] (Wo rk) documented as of [...] AM EST) athologist Signature Thyroglobulin <0.4 <=54.9 [facility] ng/mL [facility] [...] than those obtained with T4 withdrawal protocol ([place] BR et al. J Clin Endo Metab 1999;84:4252-5475). Assay performed using the DPC Immulite T [...] Address City/State/ZIP Code Phon e Number [address] TSH (09/03/2016 11:07 AM EST) P athologist Signature TSH 3.01 0.27 - 4.20 [facility] mcIU/mL [facility] LABORATORY Specimen Anatomical Collection Method Collection Time Receive d Time (Source) Location / / Volume Laterality Blood specimen 09/03/2016 11:07 7 (specimen) AM EST 11:22 AM EST Resulting Agency Comment Spec In Lab Luz Prescott MD CHEMISTRY ORDERABLES Performing Organization Address City/[facility]/ZIP [facility] [place] [address] documented in this encounter Visit Diagnoses Diagnosis Hx of papillary thyroid carcinoma Personal history of malignant neoplasm o f thyroid documented in this encounter Care Teams Purifying Plant Operator Relationship Specialty Start Date End Date Lovely Vicente MD PCP - General 04/16/15 [address] [place] [address] documented as of this encounter
--- OUTSIDE RECORDS SUMMARY | 2022-04-10 09:05 | XMS_ITS | Encounter Summary ---
:1945 Author Organization [facility] [place] [address] Care Team Providers Name Role Phone Lovely Vicente MD Primary Care Provider Reason for Visit Reason Onset Date Comments Pre Procedure Call 12/02/2016 Encounter Details Date Type Department Care Team Description 12/02/2016 Telephone Dermatology at [facility] Mira James LPN Pre Procedure Call [address] [place] [address] Social History Tobacco Use Types Packs/Day [...] Zulma Dolan MD [facility] [place], [place] [address] (Wo lissa) 05/28/2022 Laboratory Appointment Lab 05/28/2022 Office Visit Cardiology Zulma Dolan MD [facility] [place] [address] Liz Poole PA [facility] [place] [address] 06/10/2022 Office Visit Dermatology Laura Scherer MD [facility] DR [address] [place], [place] [address] (Wo rk) documented as of this encounter Visit Diagnoses Not on filedocumented in this encounter Care Teams Drier Unloader Relationship Specialty Start Date End Date Lovely Vicente MD PCP - General 04/16/[address] [place] [address] documented as of this encounter
--- OUTSIDE RECORDS SUMMARY | 2022-04-10 09:06 | XMS_ITS | Encounter Summary ---
:1945 Author Organization [facility] [place] [address] Care Team Providers Name Role Phone MiyaAngela STACIE Primary Care Provider Encounter Details Date Type Department Care Team Description 04/26/2014 Office Visit Endocrinology at [facility] Albertina Palmer, Papillary thyroid [facility] [place] [address] CENTER [phone] ENDOCRINOLOGY DEPT [place] [address] Social History Tobacco Use Types Packs/Day Years [...] on [place]. Rosalind Palmer Endocrine Staff Physician [facility] Rosalind Palmer MD - 04/26/2014 8:39 AM [...] one yr Rosalind Palmer Endocrine Staff Physician [facility] documented in this encounter Plan of Treatment Upcoming Encounters Date Type Specialty Care Team Description 05/28/2022 Appointment Cardiology Zulma Dolan MD [facility] [address] [place], [place] [address] (Wo rk) 05/28/2022 Laboratory Appointment Lab 05/28/2022 Office Visit Cardiology Zulma Dolan MD [facility] [place] [address] Liz Poole PA [facility] [place] [address] 06/10/2022 Office Visit Dermatology Laura Scherer MD [facility] DR [address]DERMAT [place], [place] [address] (Wo rk) [...] athologist Signature Thyroglobulin <0.4 <=54.9 [place] ng/mL [facility] Comment: Interpret with caution. Tg levels [...] BR et al. J Clin Endo Metab 1999;84:0526-6033). Assay performed using the DPC Immulite T [...] Address City/State/ZIP Code Phon e Number [address] CERNER MILLENNIUM (ABNORMAL) [...] Palmer MD CHEMISTRY ORDERABLES Performing Organization Address City/[facility]/ZIP Code Phon e Number [address] [place]ERN[place]ENNIUM documented in this encounter Visit Diagnoses Diagnosis Papillary thyroid carcinoma Malignant neoplasm of thyroid gland documented in this encounter Care Teams Research Director Relationship Specialty Start Date End Date Angela Holliday APRN PCP - General 01/25/13 04/15/[address] [place] [address] documented as of this encounter
--- OUTSIDE RECORDS SUMMARY | 2022-04-10 09:06 | XMS_ITS | Encounter Summary ---
:1945 Author Organization [facility] [place] [address] Care Team Providers Name Role Phone Unknown Primary Care Provider Unavailable Reason for Visit Reason Comments Other Encounter Details Date Type Department Care Team Description 10/05/2012 Telephone Dermatology at [facility] Rigoberto Garcia III, [address] [place] [address] [facility] [phone] [address]-DERMAT [place] [id number] (Wo rk) Social History Tobacco Use Types [...] Zulma Dolan MD [facility] [place], [place] [address] (Wo rk) 05/28/2022 Laboratory Appointment Lab 05/28/2022 Office Visit Cardiology Zulma Dolan MD [facility] [place] [address] Liz Poole PA [facility] [place] [address] 06/10/2022 Office Visit Dermatology Laura Scherer MD [facility] DR TE[address] MARIE-DERMAT [place], [place] [address] (Wo rk) documented as of this encounter Visit Diagnoses Not on filedocumented in this encounter Care Teams Assistant Women'S Soccer Coach Relationship Specialty Start Date End Date Unknown PCP - General 10/04/12 01/24/13 None documented as of this encounter
--- OUTSIDE RECORDS SUMMARY | 2022-04-10 09:06 | XMS_ITS | Encounter Summary ---
:1945 Author Organization [facility] [place] [address] Care Team Providers Name Role Phone MiyaAngela STACIE Primary Care Provider Encounter Details Date Type Department Care Team Description 11/27/2013 Orders Only Urology at [facility] Blade Smith, Urinary retention [facility] (Primary Dx) [place] [address] UROLOGY DEPT [place], [place] [address] Social History Tobacco Use Types [...] [facility] [place], [place] [address] (Wo rk) 05/28/2022 Laboratory Appointment Lab 05/28/2022 Office Visit Cardiology Zulma Dolan MD [facility] [place] [address] Liz Poole PA [facility] [place] [address] 06/10/2022 Office Visit Dermatology Laura Scherer MD [facility] ER DR TEJA GR-DERMAT OLOGY [place], [place] 0[address] (Wo rk) documented as of [...] Organization Address City/State/[place] [address] CERNER MILLENNIUM documented in this encounter Visit Diagnoses Diagnosis Urinary retention - Primary Retention of urine, unspecified documented in this encounter Care Teams River Rafting Guide Relationship Specialty Start Date End Date Angela Holliday APRN PCP - General 01/25/13 04/15/[address] [place] [address] documented as of this encounter
--- OUTSIDE RECORDS SUMMARY | 2022-04-10 09:06 | XMS_ITS | Encounter Summary ---
:1945 Author Organization [facility] [place] [address] Care Team Providers Name Role Phone Angela Holliday APRN Primary Care Provider Encounter Details Date Type Department Care Team Description 04/30/2014 Orders Only Endocrinology at [facility] Albertina Palmer, Thyroid cancer [facility] Jorge Boyer MD (Primary Dx) [place] [address] [facility] [phone] CENTER ENDOCRINOLOGY DEPT [place], [place] 0[address] Social History Tobacco Use Types [...] [facility] er Dr [place], [place] 0[address] (Wo rk) 05/28/2022 Laboratory Appointment Lab 05/28/2022 Office Visit Cardiology Zulma Dolan [place] [facility] [place] [address] Liz Poole PA [facility] [place] [address] 06/10/2022 Office Visit Dermatology Laura Scherer MD [facility] ER DR TEJA GR-DERMAT [place], [place] 0[address] (Wo rk) documented as of this encounter Visit Diagnoses Diagnosis Thyroid cancer - Primary Malignant neoplasm of thyroid gland documented in this encounter Care Teams Multiple Drum Sander Helper Relationship Specialty Start Date End Date Angela Holliday APRN PCP - General 01/25/13 04/15/[address] [place] [address] documented as of this encounter
--- OUTSIDE RECORDS SUMMARY | 2022-04-10 09:06 | XMS_ITS | Encounter Summary ---
:1945 Author Organization [facility] [address] Care Team Providers Name Role Phone Lovely Vicente MD Primary Care Provider Reason for Visit Reason Onset Date Comments Referral 10/30/2015 Urgent referral for mac on SIMÓN [place]AVIS Encounter Details Date Type Department Care Team Description 10/30/2015 Telephone Ophthalmology at [facility] C Jayson Ruiz Referral (Urgent [facility] MD Grabiel referral for mac on [facility] DR SIM[address]N [place]) [place] [address] OPHTHALMOLOGY DEPT. [phone] [place], [place] 0375 (Wo rk) Social History Tobacco [...] Dolan MD [facility] [address] [place], [place] [address] (Wo rk) 05/28/2022 Laboratory Appointment Lab 05/28/2022 Office Visit Cardiology Zulma Dolan MD [facility] [place] [address] Liz Poole PA [facility] [place] [address] 06/10/2022 Office Visit Dermatology Laura Scherer MD [facility] DR TEJA GR-DERMAT [place], [place] 0[address] (Wo rk) documented as of this encounter Visit Diagnoses Not on filedocumented in this encounter Care Teams Order Worker Relationship Specialty Start Date End Date Lovely Vicente MD PCP - General 04/16/[address] [place], [place] [address] documented as of this encounter
--- OUTSIDE RECORDS SUMMARY | 2022-04-10 09:06 | XMS_ITS | Encounter Summary ---
:1945 Author Organization [place] [address] Care Team Providers Name Role Phone MiyaAngela STACIE Primary Care Provider Reason for Visit Reason Comments Urinary Retention Encounter Details Date Type Department Care Team Description 05/16/2013 Follow-Up [facility] [place] [facility] Blade Smith, Retention of urine [facility] (Primary Dx) [place] [address] UROLOGY DEPT [place] [address] (Wo rk) Social History Tobacco Use Types [...] EDT documented in this encounter Progress Notes lBade Smith MD - 05/16/2013 8:05 AM EDT [...] Dolan MD [facility] Dr [place], [place] [address] (Wo rk) 05/28/2022 Laboratory Appointment Lab 05/28/2022 Office Visit Cardiology Zulma Dolan MD [facility] [place] [address] Liz Poole PA [facility] [place] [address] 06/10/2022 Office Visit Dermatology Laura Scherer MD [facility] DR TEJA GR-DERMAT [place], [place] 0[address] (Wo rk) documented as of this encounter Visit Diagnoses Diagnosis Retention of urine - Primary Retention of urine, unspecified documented in this encounter Care Teams Theater Manager Relationship Specialty Start Date End Date Angela Holliday APRN PCP - General 01/25/13 04/15/[address] [place] [address] documented as of this encounter
--- OUTSIDE RECORDS SUMMARY | 2022-04-10 09:06 | XMS_ITS | Encounter Summary ---
:1945 Author Organization [facility] [place] [address] Care Team Providers Name Role Phone Angela Holliday APRN Primary Care Provider Reason for Visit Reason Comments Other Encounter Details Date Type Department Care Team Description 08/01/2013 Telephone Dermatology at [facility] Rigoberto Garcia III, [address] [place] [address] [facility] [phone] TEJA MARIE-DERMAT [place], [place] [address] (Wo rk) Social History Tobacco Use Types Packs/Day Years Used Date Former Smoker Alcohol Use Standard Drinks/Week Comments No 0 (1 standard drink = 0.6 oz pure alcoho l) Sex Assigned at Date Recorded Not on file documented as of this encounter Miscellaneous Notes Telephone Encounter - iRgoberto Garcia III, MD - 08/01/2013 8:41 PM EST I called the patient and discussed the results of their pathology with them. Component Value Surgical Pathology Final Report [facility] Provider: RIGOBERTO GARCIA III Pt. Name: DON HOANG Acc #: [id number] Pt. 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 CR-0 08/01/13 BJM 08/01/13 Verified by: Ian STRANGE, PhD, [facility] Dermatopathologist (Electronic Signature) The attending pathologist [...] Cardiology Zulma Dolan MD [facility] [place], [place] 0[address] (Wo lissa) 05/28/2022 Laboratory Appointment Lab 05/28/2022 Office Visit Cardiology Zulma Dolan [place] [facility] [address] Liz Poole PA [facility] [place] [address] 06/10/2022 Office Visit Dermatology Laura Scherer MD [facility] DR TEJA MARIE-DERMAT [place], [place] 0[address] (Wo rk) documented as of this encounter Visit Diagnoses Not on filedocumented in this encounter Care Teams Sap Project Manager Relationship Specialty Start Date End Date Angela Holliday APRN PCP - General 01/25/13 04/15/[address] [place] [address] documented as of this encounter
--- OUTSIDE RECORDS SUMMARY | 2022-04-10 09:06 | XMS_ITS | Encounter Summary ---
:1945 Author Organization [facility] [place] [address] Care Team Providers Name Role Phone Angela Holliday APRN Primary Care Provider Reason for Visit Reason Comments Benign Prostatic Hypertrophy Encounter Details Date Type Department Care Team Description 11/28/2013 Follow-Up [facility]rology at [facility] Blade Smith, Urinary retention (Primary D x); [facility] BPH (benign prostatic hyperplasia) [place] [address] UROLOGY DEPT [place], [place] 0[address] (Wo rk) Social History Tobacco [...] Zulma Dolan MD [facility] [address] [place], [place] [address] (Wo rk) 05/28/2022 Laboratory Appointment Lab 05/28/2022 Office Visit Cardiology Zulma Dolan MD [facility] [place] [address] Liz Poole PA [facility] [place] [address] 06/10/2022 Office Visit Dermatology Laura Scherer MD [facility] DR TEJA GR-DERMAT [place], [place] 0[address] (Wo rk) documented as of [...] Organization Address City/State/[place] [address] CERNER MILLENNIUM documented in this encounter Visit Diagnoses Diagnosis Urinary retention - Primary Retention of urine, unspecified BPH (benign prostatic hyperplasia) Unspecified hyperplasia of prostate with out urinary obstruction and other lower urinary tract symptoms (LUTS) documented in this encounter Care Teams Offal Worker Relationship Specialty Start Date End Date Angela Holliday APRN PCP - General 01/25/13 04/15/[address] [place] [address] documented as of this encounter
--- OUTSIDE RECORDS SUMMARY | 2022-04-10 09:06 | XMS_ITS | Encounter Summary ---
:1945 Author Organization [facility] [place] [address] Care Team Providers Name Role Phone NeilSom conner STACIE Primary Care Provider Reason for Visit Reason Comments Establish Care OBST GOITER Encounter Details Date Type Department Care Team Description 01/25/2013 Office Visit General Surgery at M[facility] Mck[facility] er colloid, toxic, [facility] MD Eliseo nodular (Primary Dx) [facility] [place] GENERAL SURGERY [address] [place], [place] [address] [phone] Social History Tobacco Use Types Packs/Day Years [...] the thyroid gland were obtained using a SonoSiWhatsNexx MicroMaxx and an HFL38/13-6 broadband linear array [...] agrees to proceed. Will sign in through [facility]. Consent is signed. Send copy to Dr. SOM HOLLIDAY APRN and Elijah Elias MD. documented in this encounter Plan of Treatment Upcoming Encounters Date Type Specialty Care Team Description 05/28/2022 Appointment Cardiology Zulma Dolan MD [facility] [address] [place] [address] (Wo rk) 05/28/2022 Laboratory Appointment Lab 05/28/2022 Office Visit Cardiology Zulma Dolan MD [facility] [place] [address] Liz Poole PA [facility] [place] [address] 06/10/2022 Office Visit Dermatology Laura Scherer MD [facility] DR TEJA GR-DERMAT OLOGY [place], [place] 0[address] (Wo rk) documented as [...] 406 ms MUSE SYSTEM (Bezet) Calculated P Kipton 52 degrees MUSE SYSTEM Calculated R Kipton 0 degrees MUSE SYSTEM Calculated T Kipton 40 degrees MUSE SYSTEM INTERPRETATION Normal sinus [...] storm documented in this encounter Care Teams Coarse Wire Drawer Relationship Specialty Start Date End Date Som Holliday APRN PCP - General 01/25/13 04/15/[address] [place] [address] documented as of this encounter
--- OUTSIDE RECORDS SUMMARY | 2022-04-10 09:06 | XMS_ITS | Encounter Summary ---
:1945 Author Organization [facility] [place] [address] Care Team Providers Name Role Phone Angela Holliday APRN Primary Care Provider Encounter Details Date Type Department Care Team Description 03/28/2013 Surgery Main Operating Room Mesha Mcknight, THYROIDECTOMY, [facility] 15.04[facility] DR [place]idd[place] [address] [place] [address] [phone] (Wo rk) Social History Tobacco Use Types [...] please call the General Surgery nurse at [phone], since this may mean that you need morecalcium. Follow-up Appointment: Will be scheduled with Dr. Mcknight in 6 weeks Date and time as well as any required labs will be mailed to you Please call [phone] to confirm date and time of your [...] by calcium supplementation. Phone number for questions: [phone] before 5 PM weekdays [phone] after 5 PM and on weekends/holidays Please [...] is a 68 y.o. male presents to [facility] today for total thyroidectomy. See full [...] Willams MD - 03/28/2013 3:43 PM EDT [facility] Operative Note Patient Name: Gregory Fatima : [id number] MR#: [id number] Case Date: 03/28/2013 Surgeon: Surgeon(s) and Role: [...] patient was extubated and taken to the [facility] in stable condition. At the end [...] Operative Note Patient Name: Gregory Fatima : [id number] MR#: [id number] Case Date: 03/28/2013 Surgeon: Surgeon(s) and Role: [...] Dolan MD [facility] er Dr [place] [address] (Wo rk) 05/28/2022 Laboratory Appointment Lab 05/28/2022 Office Visit Cardiology Zulma Dolan MD [facility] [place] [address] Liz Poole PA [facility] Cardiology [place] [address] 06/10/2022 Office Visit Dermatology Laura Scherer MD [facility] ER DR TEJA GR-DERMAT [place] [address] (Wo rk) documented as of this encounter [...] Organization Address City/State/[place] [address] CERNER MILLENNIUM (ABNORMAL) POCT [...] TEST ORDERABLE S Performing Organization Address City/[facility]/[place] [address] CERNER MILLENNIUM (ABNORMAL) POCT [...] TEST ORDERABLE S Performing Organization Address City/[facility]/ZIP Code Phon e Number [address] CERNER MILLENNIUM (ABNORMAL) POCT [...] TEST ORDERABLE S Performing Organization Address City/[facility]/ZIP Code Phon e Number [address] CERNER MILLENNIUM (ABNORMAL) POCT [...] TEST ORDERABLE S Performing Organization Address City/[facility]/ZIP Code Phon e Number [address] CERNER MILLENNIUM (ABNORMAL) POCT [...] TEST ORDERABLE S Performing Organization Address City/[facility]/ZIP Code Phon e Number [address] CERNER MILLENNIUM (ABNORMAL) POCT [...] TEST ORDERABLE S Performing Organization Address City/[facility]/ZIP Code Phon e Number [address] CERNER MILLENNIUM (ABNORMAL) POCT [...] TEST ORDERABLE S Performing Organization Address City/[facility]/ZIP Code Phon e Number [address] [facility] Specimen to Pathology (surgical or derm) (03/28/2013 12:14 PM EDT) Specimen Anatomical Collection Method Collection Time Receive d Time (Source) Location / / Volume Laterality AP Specimen 03/28/2013 12:14 03/28/2013 PM EDT 12:14 PM EDT Narrative CERNER MILLENNIUM - 03/28/2013 12:14 PM EDT Specimen requisition ordered. ??Separate Pathology report to follow Mesha Mcknight MD PATHOLOGY/CYTOLOGY ORDERABLE S Performing Organization Address City/[facility]/ZIP Code Phon e Number [address] [facility] Pathology Addendum Report (03/28/2013 12:03 PM EDT) Component Value Ref Test Analysis Performed At [facility] gist Range Method Time Signature Addendum CERNER Report ? [facility] ? Provider: ?? MESHA MCKNIGHT Pt. Name: ?? GREGORY FATIMA ? Acc #: ?[id number] ?Pt. MRN: ?[id number] ? Col Date: ?? 03/28/2013 ?/Sex: ?1945,(68 [...] Organization Address City/State/[place] [address] [facility] Surgical Pathology Report (03/28/2013 12:03 PM EDT) Component Value Ref Test Analysis Performed At [facility] gist Range Method Time Signature Surgical [facility] Pathology ? [facility] Report ? Provider: ?? MESHA MCKNIGHT Pt. Name: ?? GREGORY FATIMA ? Acc #: ?[id number] ?Pt. MRN: ?[id number] ? Col Date: ?? 03/28/2013 ?/Sex: ?1945,(68 [...] Name: ?? GREGORY FATIMA ? Acc #: ?[id number] ?Pt. MRN: ?[id number] ? Col Date: ?? 03/28/2013 ?/Sex: ?1945,(68 years),Male ? Rec Date: ?? 03/28/2013 ?LOC: ?[facility] ? SURGICAL PATHOLOGY ? SECTIONS/PROCESSING: Director Biostatistics sections are subm itted. (R6) ? B [...] Organization Address City/State/[place] [address] CERNER MILLENNIUM Frozen Section Report (03/28/2013 12:03 PM EDT) Component Value Ref Test Analysis Performed At [facility] gist Range Method Time Signature Frozen CERNER Section ? [facility] Report ? Provider: ?? MESHA MCKNIGHT Pt. Name: ?? GREGORY FATIMA ? Acc #: ?[id number] ?Pt. MRN: ?[id number] ? Col Date: ?? 03/28/2013 ?/Sex: ?1945,(68 [...] PATHOLOGY/CYTOLOGY ORDERABLE S Performing Organization Address City/[facility]/[place] [address] CERNER MILLENNIUM POCT Glucose [...] TEST ORDERABLE S Performing Organization Address City/[facility]/ZIP Code Phon e Number [address] CERNER MILLENNIUM Specimen to [...] PATHOLOGY/CYTOLOGY ORDERABLE S Performing Organization Address City/[facility]/[place] [address] CERNER MILLENNIUM Antibody screen (03/28/2013 9:37 AM EDT) Analysis Performed At Patho logist Time Signature Ab Screen Negative CERNER Interp MILLENNIUM Expires at [id number] CERNER 710 on: MILLENNIUM Specimen Anatomical Collection Method Collection Time Receive d Time (Source) Location / / Volume Laterality Blood specimen 03/28/2013 9:37 AM 013 9:37 (specimen) EDT AM EDT Resulting Agency Comment Spec In Lab Mesha Mcknight MD BLOOD BANK ORDERABLES Performing Organization Address City/[facility]/[place] [address] [facility] GRISELDAEN[facility]UM ABO/Rh Typing (03/28/2013 9:37 AM EDT) athologist Signature ABORh Type O Pos [facility] Specimen Anatomical Collection Method Collection Time Receive d Time (Source) Location / / Volume Laterality Blood specimen 03/28/2013 9:37 AM 013 9:37 (specimen) EDT AM EDT Resulting Agency Comment Spec In Lab Mesha Mcknight MD BLOOD BANK ORDERABLES Performing Organization Address City/[facility]/ZIP Code Phon e Number [address] [facility] Differential, Automated (03/28/2013 9:34 AM EDT) athologist [...] City/State/ZIP Code Phon e Number [place] [id number] [address]OS[address] LAB[address] CERNER MILLENNIUM (ABNORMAL) Basic [...] intervals supplied above were not validated at [facility]. Results from pediatri c patients should be [...] Organization Address City/State/[place] [address] CERNER MILLENNIUM (ABNORMAL) CBC [...] MPV 9.3 9.0 - 12.0 CERNER fL [facility] Specimen Anatomical Collection Method Collection Time Receive d Time (Source) Location / / Volume Laterality Blood specimen 03/28/2013 9:34 AM 013 9:38 (specimen) EDT AM EDT Resulting Agency Comment Spec In Lab Mesha Mcknight MD HEMATOLOGY ORDERABLES Performing Organization Address City/[facility]/ZIP Code Phon e Number [address] [facility] POCT Glucose (03/28/2013 9:17 AM EDT) athologist [...] TEST ORDERABLE S Performing Organization Address City/[facility]/ZIP Code Phon e Number [address] [facility] Specimen to Pathology (surgical or derm) (03/28/2013 8:55 AM EDT) Specimen Anatomical Collection Method Collection Time Receive d Time (Source) Location / / Volume Laterality AP Specimen 03/28/2013 8:55 AM 3 8:54 EDT AM EDT Narrative [facility] GRIS[facility] - 03/28/2013 8:55 AM E DT Specimen requisition ordered. ??Separate Pathology report to follow Mesha Mcknight MD PATHOLOGY/CYTOLOGY ORDERABLE S Performing Organization Address City/[facility]/ZIP Code Phon e Number [address] RAKESH WALKER documented in [...] RN) 0900 (Given - Provider: Radha Yao [facility], [facility]) 2.5 mg, Oral, DAILY, First [...] override documented in this encounter Care Teams Copper Etcher Relationship Specialty Start Date End Date Angela Holliday APRN PCP - General 01/25/13 04/15/15 [address] [place] [address] documented as of this encounter
--- OUTSIDE RECORDS SUMMARY | 2022-04-10 09:06 | XMS_ITS | Encounter Summary ---
:1945 Author Organization [facility] [place] [address] Care Team Providers Name Role Phone Angela Holliday APRN Primary Care Provider Reason for Referral Surgical (Routine) - Closed Specialty Diagnoses / Procedures Referred By Contact Refer red To Contact General Surgery Diagnoses Elijah Villagoemz MD Colacchio, Thomas A, MD [address] [place] [address] [place] [address] [place] [address] Phone: Fax: Referral ID Status Reason Start Date Expiration Date Visits V isits Requested Authorized [id number] Closed Specialty 01/25/2013 07/24/2013 1 1 Service Requested Reason for Visit Reason Comments Thyroid Problem Encounter Details Date Type Department Care Team Description 01/25/2013 Office Visit Endocrinology at [facility] Elijah Fuentes Goiter (Primary Dx) [facility] Drive [address] [place] [address] [place] [address] [phone] Social History Tobacco Use Types Packs/Day Years [...] History 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 All [...] the thyroid gland were obtained using a SonVintedaxx and an HFL38/13-6 broadband linear array transducer. [...] Cardiology Zulma Dolan MD [facility] [place], [place] [address] (Wo rk) 05/28/2022 Laboratory Appointment Lab 05/28/2022 Office Visit Cardiology Zulma Dolan MD [facility] [place] [address] Liz Poole PA [facility] [place] [address] 06/10/2022 Office Visit Dermatology Laura Scherer MD [facility] DR TEJA GR-DERMAT [place]LOG[place], [place] [address] (Wo rk) Scheduled Referrals Name [...] Address City/State/[place] [address] CERNER MILLENNIUM documented in this encounter Visit Diagnoses Diagnosis Goiter - Primary Goiter, unspecified documented in this encounter Care Teams Steel Pourer Relationship Specialty Start Date End Date Angela Holliday APRN PCP - General 01/25/13 04/15/[address] [place] [address] documented as of this encounter
--- OUTSIDE RECORDS SUMMARY | 2022-04-10 09:06 | XMS_ITS | Encounter Summary ---
:1945 Author Organization [facility] [place] [address] Care Team Providers Name Role Phone Angela Holliday STACIE Primary Care Provider Encounter Details Date Type Department Care Team Description 04/04/2013 Telephone Urology at [facility] Parker Sanchez MD [facility] [place] [address] UROLOGY DEPT [phone] [place], [place] [address] (Wo rk) Social History [...] Dolan MD [facility] Dr [place], [place] [address] (Wo rk) 05/28/2022 Laboratory Appointment Lab 05/28/2022 Office Visit Cardiology Zulma Dolan MD [facility] [place] [address] Liz Poole PA [facility] [place] [address] 06/10/2022 Office Visit Dermatology Laura Scherer MD [facility] [address] TE[address]MAT [place], [place] 0[address] (Wo rk) documented as of this encounter Visit Diagnoses Not on filedocumented in this encounter Care Teams Milk Pickup Driver Relationship Specialty Start Date End Date Angela Holliday APRN PCP - General 01/25/13 04/15/[address] [place] [address] documented as of this encounter
--- OUTSIDE RECORDS SUMMARY | 2022-04-10 09:06 | XMS_ITS | Encounter Summary ---
:1945 [place] [address] Care Team Providers Name Role Phone Holley Hollidayica STACIE Primary Care Provider Encounter Details Date Type Department Care Team Description 03/28/2013 - [facility] 03/29/2013 Barbara Gomes MD Dx) [facility] DR Siddiqui [place] [address] [phone] Social History Tobacco Use Types Packs/Day Years [...] please call the General Surgery nurse at [phone], since this may mean that you need morecalcium. Follow-up Appointment: Will be scheduled with Dr. Mcknight in 6 weeks Date and time as well as any required labs will be mailed to you Please call [phone] to confirm date and time of your [...] by calcium supplementation. Phone number for questions: [phone] before 5 PM weekdays [phone] after 5 PM and on weekends/holidays Please follow up with Urology as per their recommendations for Bob removal AttachmentsThe following attachments cannot be sent through Care Everywhere. THYROIDECTOMY: WHAT TO EXPECT AT HOME (TURKISH)URINARY CATHETER CARE: AFTER YOUR VISIT (TURKISH)documented in this encounter Medications at Time of [...] Willams MD - 03/28/2013 3:43 PM EDT [facility] Operative Note Patient Name: Gregory Fatima : [id number] MR#: [id number] Case Date: 03/28/2013 Surgeon: Surgeon(s) and Role: [...] Operative Note Patient Name: Gregory Fatima : [id number] MR#: [id number] Case Date: 03/28/2013 Surgeon: Surgeon(s) and Role: [...] Dolan MD [facility] er Dr [place] 0[address] (Wo rk) 05/28/2022 Laboratory Appointment Lab 05/28/2022 Office Visit Cardiology Zulma Dolan MD [facility] [place] [address] Liz Poole PA [facility] [place] [address] 06/10/2022 Office Visit Dermatology Laura Scherer MD [facility] ER DR TEJA GR[address]MAT [place] [address] (Wo rk) documented as of this encounter [...] Organization Address City/State/[place] [address] CERNER MILLENNIUM (ABNORMAL) POCT [...] City/[facility]/[place] [address] CERNER MILLENNIUM (ABNORMAL) POCT [...] City/[facility]/ZIP Code Phon e Number [address] CERNER MILLENNIUM (ABNORMAL) POCT [...] City/[facility]/ZIP Code Phon e Number [address] CERNER MILLENNIUM (ABNORMAL) POCT [...] City/[facility]/ZIP Code Phon e Number [address] CERNER MILLENNIUM (ABNORMAL) POCT [...] City/[facility]/ZIP Code Phon e Number [address] CERNER MILLENNIUM (ABNORMAL) POCT [...] City/[facility]/ZIP Code Phon e Number [address] CERNER MILLENNIUM (ABNORMAL) POCT [...] City/[facility]/ZIP Code Phon e Number [address] [facility] Specimen to Pathology (surgical [...] City/[facility]/ZIP Code Phon e Number [address] [facility] Pathology Addendum Report (03/28/2013 12:03 PM EDT) Component Value Ref Test Analysis Performed At [facility] gist Range Method Time Signature Addendum CERNER Report ? [facility] ? Provider: ?? MESHA MCKNIGHT Pt. Name: ?? GREGORY FATIMA ? Acc #: ?[id number] ?Pt. MRN: ?[id number] ? Col Date: ?? 03/28/2013 ?/Sex: ?1945,(68 [...] Organization Address City/State/[place] [address] [facility] Surgical Pathology Report (03/28/2013 12:03 PM EDT) Component Value Ref Test Analysis Performed At [facility] gist Range Method Time Signature Surgical [facility] Pathology ? [facility] Report ? Provider: ?? MESHA MCKNIGHT Pt. Name: ?? GREGORY FATIMA ? Acc #: ?[id number] ?Pt. MRN: ?[id number] ? Col Date: ?? 03/28/2013 ?/Sex: ?1945,(68 [...] areas of hemorrhage and ? calcifications. ? [facility] ? Provider: ?? MESHA MCKNIGHT Pt. Name: ?? GREGORY FATIMA ? Acc #: ?[id number] ?Pt. MRN: ?[id number] ? Col Date: ?? 03/28/2013 ?/Sex: ?1945,(68 years),Male ? Rec Date: ?? 03/28/2013 ?LOC: ?[facility] ? SURGICAL PATHOLOGY ? SECTIONS/PROCESSING: Sales Force Administrator sections are subm itted. (R6) ? [...] Organization Address City/State/[place] [address] CERNER MILLENNIUM Frozen Section Report (03/28/2013 12:03 PM EDT) Component Value Ref Test Analysis Performed At [facility] gist Range Method Time Signature Frozen CERNER Section ? [facility] Report ? Provider: ?? MESHA MCKNIGHT Pt. Name: ?? GREGORY FATIMA ? Acc #: ?[id number] ?Pt. MRN: ?[id number] ? Col Date: ?? 03/28/2013 ?/Sex: ?1945,(68 [...] City/[facility]/[place] [address] CERNER MILLENNIUM POCT Glucose [...] City/[facility]/ZIP Code Phon e Number [address] CERNER MILLENNIUM Specimen to [...] City/[facility]/[place] [address] CERNER MILLENNIUM Antibody screen (03/28/2013 9:37 AM EDT) Analysis Performed At Patho logist Time Signature Ab Screen Negative CERNER Interp MILLENNIUM Expires at [id number] CERNER 442 on: MILLENNIUM Specimen Anatomical Collection Method Collection Time Receive d Time (Source) Location / / Volume Laterality Blood specimen 03/28/2013 9:37 AM 013 9:37 (specimen) EDT AM EDT Resulting Agency Comment Spec In Lab Mesha Mcknight MD BLOOD BANK ORDERABLES Performing Organization Address City/[facility]/[place] [address] [facility] GRISELDA[facility]NIUM ABO/Rh Typing (03/28/2013 9:37 AM EDT) athologist Signature ABORh Type O Pos [facility] Specimen Anatomical Collection Method Collection Time Receive d Time (Source) Location / / Volume Laterality Blood specimen 03/28/2013 9:37 AM 013 9:37 (specimen) EDT AM EDT Resulting Agency Comment Spec In Lab Mesha Mcknight MD BLOOD BANK ORDERABLES Performing Organization Address City/[facility]/ZIP Code Phon e Number [address] [facility] GR[facility]ELDASAN [facility] Differential, Automated (03/28/2013 9:34 AM EDT) [...] City/State/ZIP Code Phon e Number [place] [id number] CERNER MILLENNIUM (ABNORMAL) Basic [...] intervals supplied above were not validated at [facility]. Results from pediatri c patients should be [...] Organization Address City/State/[place] [address] CERNER MILLENNIUM (ABNORMAL) CBC [...] MPV 9.3 9.0 - 12.0 CERNER fL [facility]EE[facility] Specimen Anatomical Collection Method Collection Time Receive d Time (Source) Location / / Volume Laterality Blood specimen 03/28/2013 9:34 AM 013 9:38 (specimen) EDT AM EDT Resulting Agency Comment Spec In Lab Mesha Mcknight MD HEMATOLOGY ORDERABLES Performing Organization Address City/[facility]/ZIP Code Phon e Number [address] [facility] GRISELDASAN [facility] POCT Glucose (03/28/2013 9:17 AM EDT) athologist Signature POC Glucose 108 60 - 199 CERNER mg/dL [facility] Comment: Supplemental ranges: <110 mg/dL before meals <200 mg/dL all other times of the day Specimen Anatomical Collection Method Collection Time Receive d Time (Source) Location / / Volume Laterality Blood specimen 03/28/2013 9:17 AM 013 9:17 (specimen) EDT AM EDT Mesha Mcknight MD POINT OF CARE TEST ORDERABLE S Performing Organization Address City/[facility]/ZIP Code Phon e Number [address] [facility] Specimen to Pathology (surgical or derm) (03/28/2013 8:55 AM EDT) Specimen Anatomical Collection Method Collection Time Receive d Time (Source) Location / / Volume Laterality AP Specimen 03/28/2013 8:55 AM 3 8:54 EDT AM EDT Narrative [facility] GRIS[facility]DA[facility] - 03/28/2013 8:55 AM E DT Specimen requisition ordered. ??Separate Pathology report to follow Mesha Mcknight MD PATHOLOGY/CYTOLOGY ORDERABLE S Performing Organization Address City/[facility]/ZIP Code Phon e Number [address] [facility] documented in this encounter Visit Diagnoses [...] RN) 0900 (Given - Provider: Radha Yao [facility], RN) 2.5 mg, Oral, DAILY, First dose [...] Comment: c/o headache)2159 (Given - Provider: Kesha rGacia RN - Comment: c/o headache) 0738 (Given [...] override documented in this encounter Care Teams Coin Machine Operator Relationship Specialty Start Date End Date Angela Holliday APRN PCP - General 01/25/13 04/15/15 [address] [place] [address] documented as of this encounter
--- OUTSIDE RECORDS SUMMARY | 2022-04-10 09:06 | XMS_ITS | Encounter Summary ---
:1945 Author Organization [facility] [place] [address] Care Team Providers Name Role Phone Lovely Vicente MD Primary Care Provider Reason for Visit Reason Comments Thyroid Cancer Encounter Details Date Type Department Care Team Description 06/05/2015 Office Visit Endocrinology at [facility] Albertina Prescott, History of papillary [facility] MD Luz adenocarcinoma of [facility] thyroid (Primary Dx) [place] [address] CENTER [phone] [place] [address] Social History Tobacco Use Types Packs/Day Years [...] the thyroid gland were obtained using a Klypper ultrasound machine. All measurements are given as AP x Transverse x Longitudinal Right Lobe: Absent Left Lobe: Absent Isthmus: Absent Central/Lateral neck: no morphologically abnormal lymph nodes. Impression: No sonographic evidence of recurrence. LUZ PRESCOTT MD Boat [employer] Plant Utility Supervisortentering machine off bearer Section of Endocrinology [facility] Luz Prescott MD [...] COMPACT TEST) Strip by [facility]Non-Drug; Combo Route) route 2 times daily. Yes [...] --f/u in 1 year LUZ PRESCOTT MD [employer] Utility Supervisortentering machine off bearer Section of Endocrinology [facility] documented [...] Dolan MD [facility] Dr [place], [place] [address] (Wo rk) 05/28/2022 Laboratory Appointment Lab 05/28/2022 Office Visit Cardiology Zulma Dolan MD [facility] [place] [address] Liz Poole PA [facility] [place] [address] 06/10/2022 Office Visit Dermatology Laura Scherer MD [facility] ER DR [address]-DERMAT [place], [place] [address] (Wo rk) [...] athologist Signature Thyroglobulin 0.6 <=54.9 CERNER ng/mL [facility] Comment: Interpret with caution. Tg [...] BR et al. J Clin Endo Metab 1999;84:0570-6839). Assay performed using the DPC Immulite T [...] City/State/[place] [address] CERNER MILLENNIUM (ABNORMAL) TSH (06/05/2015 9:04 AM EST) P athologist Signature TSH 5.88 (H) 0.27 - 4.20 CERNER mcIU/mL MILLENNIUM Specimen Anatomical Collection Method Collection Time Receive d Time (Source) Location / / Volume Laterality Blood specimen 06/05/2015 9:04 AM 015 9:15 (specimen) EST AM EST Resulting Agency Comment Spec In Lab Luz Prescott MD CHEMISTRY ORDERABLES Performing Organization Address City/[facility]/[place] [address] CERNER MILLENNIUM documented in this encounter Visit Diagnoses Diagnosis 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
--- OUTSIDE RECORDS SUMMARY | 2022-04-10 09:06 | XMS_ITS | Encounter Summary ---
:1945 [place] [address] Care Team Providers Name Role Phone MiyaLokeshAngela STACIE Primary Care Provider Encounter Details Date Type Department Care Team Description 03/28/2013 Anesthesia Event Main Operating Room Meredith Calvert MD [facility] DR [place] [address] [facility] Nolvia Riojas PA [facility] PRE-[place] [address] [place] [address] Anesthesia Record Procedure Summary Procedure Name [...] Zulma Dolan MD [facility] [place], [place] [address] (Wo rk) 05/28/2022 Laboratory Appointment Lab 05/28/2022 Office Visit Cardiology Zulma Dolan MD [facility] [place] [address] Liz Poole PA [facility] [place] [address] 06/10/2022 Office Visit Dermatology Laura Scherer MD [facility] DR [address]DERMAT [place], [place] [...] Routine documented in this encounter Care Teams Diversified Crops Farmer Relationship Specialty Start Date End Date Angela Holliday APRN PCP - General 01/25/13 04/15/[address] [place] [address] documented as of this encounter
--- OUTSIDE RECORDS SUMMARY | 2022-04-10 09:06 | XMS_ITS | Encounter Summary ---
:1945 Author Organization [facility] [place] [address] Care Team Providers Name Role Phone Miya Angela STACIE Primary Care Provider Encounter Details Date Type Department Care Team Description 04/24/2013 Telephone Urology at [facility] Zhen Bowman [place] [facility] [place] [address] UROLOGY DEPT [phone] [place], [place] [address] (Wo rk) Social History Tobacco [...] Cardiology Zulma Dolan MD [facility] [place], [place] [address] (Wo rk) 05/28/2022 Laboratory Appointment Lab 05/28/2022 Office Visit Cardiology Zulma Dolan MD [facility] [place] [address] Liz Poole PA [facility] [place] [address] 06/10/2022 Office Visit Dermatology Laura Scherer MD [facility] DR [address] [place], [place] [address] (Wo rk) documented as of this encounter Visit Diagnoses Not on filedocumented in this encounter Care Teams Air Antisubmarine Officer Relationship Specialty Start Date End Date Angela Holliday APRN PCP - General 01/25/13 04/15/[address] [place] [address] documented as of this encounter
--- OUTSIDE RECORDS SUMMARY | 2022-04-10 09:06 | XMS_ITS | Encounter Summary ---
:1945 Author Organization [facility] [place] [address] Care Team Providers Name Role Phone Angela Holliday APRN Primary Care Provider Encounter Details Date Type Department Care Team Description 03/15/2013 Telephone General Surgery at [facility] Maddison Key, [place] [address] Social History Tobacco Use Types Packs/Day [...] Zulma Dolan MD [facility] [place], [place] [address] (Wo rk) 05/28/2022 Laboratory Appointment Lab 05/28/2022 Office Visit Cardiology Zulma Dolan MD [facility] [place] [address] Liz Poole PA [facility] [place] [address] 06/10/2022 Office Visit Dermatology Laura Scherer MD [facility] DR TEJA GR[address]DERMAT [place], [place] [address] (Wo rk) documented as of this encounter Visit Diagnoses Not on filedocumented in this encounter Care Teams Railcar Foreman Relationship Specialty Start Date End Date Angela Holliday APRN PCP - General 01/25/13 04/15/[address] [place] [address] documented as of this encounter
--- OUTSIDE RECORDS SUMMARY | 2022-04-10 09:06 | XMS_ITS | Encounter Summary ---
:1945 Author Organization [facility] [place] [address] Care Team Providers Name Role Phone Angela Holliday APRN Primary Care Provider Encounter Details Date Type Department Care Team Description 03/30/2013 Telephone General Surgery at [facility] Cliff Nevarez, [place] [address] Social History Tobacco Use Types Packs/Day [...] Zulma Dolan MD [facility] er [place], [place] [address] (Wo rk) 05/28/2022 Laboratory Appointment Lab 05/28/2022 Office Visit Cardiology Zulma Dolan MD [facility] [place] [address] Liz Poole PA [facility] [place] [address] 06/10/2022 Office Visit Dermatology Laura Scherer MD [facility] DR TEJA GR[address]MAT [place], [place] [address] (Wo rk) documented as of this encounter Visit Diagnoses Not on filedocumented in this encounter Care Teams Hr Receptionist Relationship Specialty Start Date End Date Angela Holliday APRN PCP - General 01/25/13 04/15/[address] [place] [address] documented as of this encounter
--- OUTSIDE RECORDS SUMMARY | 2022-04-10 09:06 | XMS_ITS | Encounter Summary ---
:1945 Author Organization [facility] [place] [address] Care Team Providers Name Role Phone Lovely Vicente MD Primary Care Provider Reason for Visit Reason Onset Date Comments Medication Refill 06/19/2016 Encounter Details Date Type Department Care Team Description 06/19/2016 Refill Endocrinology at [facility] Luz Stallings MD [facility] [place] [address] ENDOCRINOLOGY DEPT [phone] [place], [place] [address] (Wo rk) Social History Tobacco [...] Dolan MD [facility] er [address] [place] [address] (Wo rk) 05/28/2022 Laboratory Appointment Lab 05/28/2022 Office Visit Cardiology Zulma Dolan MD [facility] [place] [address] Liz Poole PA [facility] [place] [address] 06/10/2022 Office Visit Dermatology Laura Scherer MD [facility] DR TEJA GR[address]DERMAT [place], [place] [address] (Wo rk) documented as of this encounter Visit Diagnoses Not on filedocumented in this encounter Care Teams Toll Booth Operator Relationship Specialty Start Date End Date Lovely Vicente MD PCP - General 04/16/[address] [place], [place] [address] documented as of this encounter
--- OUTSIDE RECORDS SUMMARY | 2022-04-10 09:06 | XMS_ITS | Encounter Summary ---
:1945 Author Organization [facility] [place] [address] Care Team Providers Name Role Phone Angela Holliday APRN Primary Care Provider Encounter Details Date Type Department Care Team Description 03/30/2013 Telephone General Surgery at [facility] Cliff Nevarez, [place] [address] Social History Tobacco Use Types Packs/Day [...] MD [facility] Dr [place], [place] [address] (Wo rk) 05/28/2022 Laboratory Appointment Lab 05/28/2022 Office Visit Cardiology Zulma Dolan MD [facility] [place] [address] Liz Poole PA [facility] [place] [address] 06/10/2022 Office Visit Dermatology Laura Scherer MD [facility] [address] [place], [place] [address] (Wo rk) documented as of this encounter Visit Diagnoses Not on filedocumented in this encounter Care Teams Dye Range Feeder Relationship Specialty Start Date End Date Angela Holliday APRN PCP - General 01/25/13 04/15/[address] [place] [address] documented as of this encounter
--- OUTSIDE RECORDS SUMMARY | 2022-04-10 09:06 | XMS_ITS | Encounter Summary ---
:1945 Author Organization [facility] [place] [address] Care Team Providers Name Role Phone MiyaAngela STACIE Primary Care Provider Reason for Visit Reason Onset Date Comments Advice Only 03/31/2013 Encounter Details Date Type Department Care Team Description 03/31/2013 Telephone Urology at [facility] Daniele Trejo III, MD Advice Only [facility] [place] [facility] [place] [address] [place] [id number] [phone] (Wo rk) Social History Tobacco Use Types [...] Cardiology Zulma Dolan MD [facility] [place], [place] [address] (Wo rk) 05/28/2022 Laboratory Appointment Lab 05/28/2022 Office Visit Cardiology Zulma Dolan MD [facility] [place] [address] Liz Poole PA [facility] [place] [address] 06/10/2022 Office Visit Dermatology Luara Scherer MD [facility] DR TEJA [address]MAT [place], [place] [address] (Wo rk) documented as of this encounter Visit Diagnoses Not on filedocumented in this encounter Care Teams Visitor Services Associate Relationship Specialty Start Date End Date Angela Holliday APRN PCP - General 01/25/13 04/15/[address] [place] [address] documented as of this encounter
--- OUTSIDE RECORDS SUMMARY | 2022-04-10 09:06 | XMS_ITS | Encounter Summary ---
:1945 Author Organization [place] [address] Care Team Providers Name Role Phone MiyaLokeshAngela STACIE Primary Care Provider Reason for Visit Reason Onset Date Comments Post-op Problem 04/05/2013 voiding trial Encounter Details Date Type Department Care Team Description 04/05/2013 Telephone Urology at [facility] Blade Smith, Post-op Problem [facility] (voiding trial) [place] [address] UROLOGY DEPT [place] [address] (Wo rk) Social History Tobacco Use Types [...] Zulma Dolan MD [facility] [address] [place], [place] [address] (Wo rk) 05/28/2022 Laboratory Appointment Lab 05/28/2022 Office Visit Cardiology Zulma Dolan MD [facility] [place] [address] Liz Poole PA [facility] [place] [address] 06/10/2022 Office Visit Dermatology Laura Scherer MD [facility] [address]DERMAT [place], [place] [address] (Wo rk) documented as of this encounter Visit Diagnoses Not on filedocumented in this encounter Care Teams Web Marketing Coordinator Relationship Specialty Start Date End Date Angela Holliday APRN PCP - General 01/25/13 04/15/[address] [place] [address] documented as of this encounter
--- OUTSIDE RECORDS SUMMARY | 2022-04-10 09:06 | XMS_ITS | Encounter Summary ---
:1945 Author Organization [facility] [place] [address] Care Team Providers Name Role Phone Angela Holliday APRN Primary Care Provider Reason for Visit Reason Onset Date Comments Other 03/30/2013 blood in catheter ba g Encounter Details Date Type Department Care Team Description 03/30/2013 Telephone General Surgery at [facility] Janneth Sharma, Other (blood in [facility] RN catheter bag) [place] [address] Social History Tobacco Use Types Packs/Day [...] Cardiology Zulma Dolan MD [facility] [place], [place] [address] (Wo rk) 05/28/2022 Laboratory Appointment Lab 05/28/2022 Office Visit Cardiology Zulma Dolan MD [facility] [place] [address] Liz Poole PA [facility] [place] [address] 06/10/2022 Office Visit Dermatology Laura Scherer MD [facility] [address] [place], [place] [address] (Wo rk) documented as of this encounter Visit Diagnoses Not on filedocumented in this encounter Care Teams Utilization Review Nurse Relationship Specialty Start Date End Date Angela Holliday APRN PCP - General 01/25/13 04/15/[address] [place] [address] documented as of this encounter
--- OUTSIDE RECORDS SUMMARY | 2022-04-10 09:06 | XMS_ITS | Encounter Summary ---
:1945 Author Organization [facility] Address [facility] [place] [address] Care Team Providers Name Role Phone Lovely Vicente MD Primary Care Provider Reason for Visit Reason Comments Skin Check Encounter Details Date Type Department Care Team Description 11/05/2015 Office Visit Dermatology at [facility] benign nevi; Abdelrahman HOOPER MD Lentigines; [address] [facility] History of melanoma; [place] [address] Skin exam for malignant neoplasm [phone] [facility] [place], [place] [address] Social History Tobacco Use [...] Diagnostic, Drum (ACCU-CHEK COMPACT TEST) Strip by [facility]Non- Drug; Combo Route) route 2 times daily. [...] the presence of Dr. Garcia.: GINNY CHRISTIANSEN CUTTER OPERATOR TILE and Judit Cruz, Clinical Scribe I performed the above scribed service and agree with the accuracy of the documentation in this encounter. Rigoberto Garcia MD Section of Dermatology [facility] documented in this encounter Plan of Treatment Upcoming Encounters Date Type Specialty Care Team Description 05/28/2022 Appointment Cardiology Zulma Dolan MD [facility] [address] [place], [place] [address] (Wo rk) 05/28/2022 Laboratory Appointment Lab 05/28/2022 Office Visit Cardiology uZlma Dolan MD [facility] [place] [address] Liz Poole PA [facility] [place] [address] 06/10/2022 Office Visit Dermatology Laura Scherer MD [facility] [address] TE[address]DERMAT [place], [place] [address] (Wo rk) documented as of this encounter Visit Diagnoses Diagnosis Multiple benign nevi Benign neoplasm of skin, site unspecifie d Lentigines Other dyschromia History of melanoma Personal history of malignant melanoma o f skin Skin exam for malignant neoplasm Screening for malignant neoplasm of the skin documented in this encounter Care Teams Forensic Accountant Relationship Specialty Start Date End Date Lovely Vicente MD PCP - General 04/16/15 [facility] [address] [place] [address] (work) documented as of this encounter
--- OUTSIDE RECORDS SUMMARY | 2022-04-10 09:06 | XMS_ITS | Encounter Summary ---
:1945 Author Organization [facility] [place] [address] Care Team Providers Name Role Phone Som Holliday APRN Primary Care Provider Encounter Details Date Type Department Care Team Description 04/11/2014 Procedure visit [facility]astroenterology at [facility] Esophageal reflux [facility] Luz Winchester RN (Primary Dx) [place] [address] Social History Tobacco Use Types Packs/Day Years Used Date Former Smoker Alcohol Use Standard Drinks/Week Comments No 0 (1 standard drink = 0.6 oz pure alcoho l) Sex Assigned at Date Recorded Not on file documented as of this encounter Progress Notes Adalid Can MD - 04/13/2014 3:43 PM EDT ESOPHAGEAL MANOMETRY Don Fatima Male, 69 yrs, 1945 PCP: SOM HOLLIDAY BOATHOUSE KEEPER: NONE STUDY DATE: 04/11/14 PROVIDER: [place] ([id number]) INDICATION Reflux; preoperative evaluation. METHODS Stationary esophageal manometry was performed with the Capos [place] esophageal motility system utilizing the Polygram software [...] of the esophagus. Adalid Can, PhD, MD examination scorer, [facility] [employer] Section of Gastroenterology and Hepatology [facility] [place] [address] V: [phone] F: [phone] [facility]/gabriela CC/EC: PCP - staff msg copy 04/13/14 Henrique Taylor MD - fax copy 04/13/14 Luz Keller RN - 04/11/2014 8:14 AM EDT Esophageal manometry performed without difficulty and Was well tolerated. documented in this encounter Plan of Treatment Upcoming Encounters Date Type Specialty Care Team Description 05/28/2022 Appointment Cardiology Zulma Dolan MD [facility] [place] [place] [address] (Wo rk) 05/28/2022 Laboratory Appointment Lab 05/28/2022 Office Visit Cardiology Zulma Dolan MD [facility] [place] [address] Liz Poole PA [facility] [place]iology [place] [address] 06/10/2022 Office Visit Dermatology Laura Scherer MD [facility] [address]MAT [place], [place] [address] (Wo rk) documented as of this encounter Visit Diagnoses Diagnosis Esophageal reflux - Primary documented in this encounter Care Teams Tool Tender Relationship Specialty Start Date End Date Som Holliday APRN PCP - General 01/25/13 04/15/[address] [place] [address] documented as of this encounter
--- OUTSIDE RECORDS SUMMARY | 2022-04-10 09:06 | XMS_ITS | Encounter Summary ---
:1945 Author Organization [facility] [place] [address] Care Team Providers Name Role Phone Lovely Vicente MD Primary Care Provider Reason for Visit Reason Comments Skin Check Encounter Details Date Type Department Care Team Description 04/16/2015 Follow-Up Dermatology at [facility] x of melanoma of skin; Abdelrahman HOOPER MD Multiple benign nevi [address] [place] [address] [facility] [place], [place] [address] (Wo rk) Social History [...] Diagnostic, Drum (ACCU-CHEK COMPACT TEST) Strip by [facility].(Non- Drug; Combo Route) route 2 [...] Cardiology Zulma Dolan MD [facility] [place], [place] [address] (Wo rk) 05/28/2022 Laboratory Appointment Lab 05/28/2022 Office Visit Cardiology Zulma Dolan MD [facility] [place] [address] Liz Poole PA [facility] [place] [address] 06/10/2022 Office Visit Dermatology Laura Scherer MD [facility] [address] [place], [place] [address] (Wo rk) documented as of this encounter Visit Diagnoses Diagnosis Hx of melanoma of skin Personal history of malignant melanoma o f skin Multiple benign nevi Benign neoplasm of skin, site unspecifie d documented in this encounter Care Teams Community Pharmacist Relationship Specialty Start Date End Date Lovely Vicente MD PCP - General 04/16/[address] [place] [address] [address] [place] [address] documented as of this encounter
--- OUTSIDE RECORDS SUMMARY | 2022-04-10 09:06 | XMS_ITS | Encounter Summary ---
:1945 Author Organization [facility] [place] [address] Care Team Providers Name Role Phone Angela Sotelo APRN Primary Care Provider Encounter Details Date Type Department Care Team Description 01/16/2014 Surgery Gastroenterology at [facility] Nohemi Jaimes, COLONOSCOPY, [facility] Jorge mcnamara MD [place], [place] [address] [facility] LESION BY SNARE ([facility] [phone] DR Cintron) GASTROENTEROLOGY DEPT. [place], [place] [address] Social History Tobacco Use Types [...] you need to be checked. Wednesday[facility] [phone] 8a-5p Same Day Endo [phone] 7a-8p Otherwise contact [phone] and ask to speak to the quality measurement specialist munitions handler supervisor Follow up care is a shelton [...] MD - 01/16/2014 9:49 AM EDT [facility] Operative Note Patient Name: Gregory Fatima : [id number] MR#: [id number] Case Date: 01/16/2014 Surgeon: Surgeon(s) and Role: * Nohemi Jaimes MD - Primary Preoperative diagnosis: 5 yr surv. Full procedure note is documented under the Procedure section of eDH. documented in this encounter Plan of Treatment Upcoming Encounters Date Type Specialty Care Team Description 05/28/2022 Appointment Cardiology Zulma Dolan MD [facility] [address] [place] [address] (Wo rk) 05/28/2022 Laboratory Appointment Lab 05/28/2022 Office Visit Cardiology Zulma Dolan MD [facility] [place] [address] Liz Poole PA [facility] [place] [address] 06/10/2022 Office Visit Dermatology Laura Scherer MD [facility] [address] [place] [address] (Wo rk) documented as of this encounter [...] Surgical Pathology Report (01/16/2014 9:53 AM EDT) [facility] Method Time Signature Surgical CERNER Pathology ? [facility][note 2] Report ? Provider: ?? SHREE, NOHEMI Gonzalez ?Pt. Name: ?? MALICKA RT, GREGORY E ? Acc #: ?[id number] ?Pt. MRN: ?[id number] ? Col Date: ?? 4 ? /Sex: [...] Organization Address City/State/ZIP Code Phon e Number [place] [phone] RAKESH WALKER Specimen to [...] PATHOLOGY/CYTOLOGY ORDERABLE S Performing Organization Address City/[facility]/[place] [address] CERNER MILLENNIUM Specimen to [...] MD PATHOLOGY/CYTOLOGY ORDERABLE S Performing Organization Address [facility] [place] [address] CERNER MILLENNIUM COLONOSCOPY (01/16/2014 7:25 AM EDT) [facility] gist Method Time Signature COLONOSCOPY [facility] PROVATION Endoscopy Patient Name: Gregory Fatima ? Procedure Date: 01/16/2014 7:25 AM ? N: [id number] ? Date of : 1945 ? Age: 68 ? Order #: [id number] ? Procedure: ? Colonoscopy Indications: ? High [...] Laterality 01/16/2014 7:25 AM EDT Angela Sotelo LUBRICATION TECHNICIAN GENERAL SURGICAL ORDERABLES Performing Organization Address City/State/ZIP [...] documented in this encounter Care Teams Retail General Manager Relationship Specialty Start Date End Date Angela Sotelo APRN PCP - General 01/25/13 04/15/[address] [place] [address] documented as of this encounter
--- OUTSIDE RECORDS SUMMARY | 2022-04-10 09:06 | XMS_ITS | Encounter Summary ---
:1945 Author Organization [facility] [place] [address] Care Team Providers Name Role Phone MiyaLokeshAngela STACIE Primary Care Provider Encounter Details Date Type Department Care Team Description 01/16/2014 Hospital Encounter Gastroenterology at [facility] Nohemi Swann, [facility] [place] [address] [facility] [phone] [facility] GASTROENTEROLOGY DEPT. [place], [place] 0[address] Social History Tobacco [...] you need to be checked. Wednesday-Wednesday Clinic [phone] 8a-5p Same Day Endo [phone] 7a-8p Otherwise contact [phone] and ask to speak to the manager acquisition investigation specialist Follow up care is a shelton [...] Operative Note Patient Name: Gregory Fatima : [id number] MR#: [id number] Case Date: 01/16/2014 Surgeon: Surgeon(s) and Role: * Nohemi Swann MD - Primary Preoperative diagnosis: 5 yr surv. Full procedure note is documented under the Procedure section of eDH. documented in this encounter Plan of Treatment Upcoming Encounters Date Type Specialty Care Team Description 05/28/2022 Appointment Cardiology Zulma Dolan MD [facility] [place], [place] [address] (Wo rk) 05/28/2022 Laboratory Appointment Lab 05/28/2022 Office Visit Cardiology Zulma Dolan MD [facility] [place] [address] Liz Poole PA [facility] [place] [address] 06/10/2022 Office Visit Dermatology Laura Scherer MD [facility] [address] [place], [place] [address] (Wo rk) documented as of this encounter [...] Surgical Pathology Report (01/16/2014 9:53 AM EDT) [facility] Method Time Signature Surgical CERNER Pathology ? [facility] Report ? Provider: ?? NOHEMI SWANN ?Pt. Name: ?? MALICKEliseo RT, GREGORY E ? Acc #: ?[id number] ?Pt. MRN: ?[id number] ? Col Date: ?? 4 ? /Sex: [...] City/State/ZIP Code Phon e Number [place] [phone] RAKESH WALKER Specimen to [...] Organization Address City/State/[place] [address] [facility] Specimen to Pathology (surgical or derm) [...] City/[facility]/[place] [address] CERNER MILLENNIUM COLONOSCOPY (01/16/2014 7:25 AM EDT) [facility] gist Method Time Signature COLONOSCOPY [facility] [place]OVATION Endoscopy Patient Name: Gregory Fatima ? Procedure Date: 01/16/2014 7:25 AM ? N: [id number] ? Date of : 1945 ? Age: 68 ? Order #: [id number] ? Procedure: ? Colonoscopy Indications: ? High risk colon cancer surveillance : ? 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 dm on metformin with bs ~ 110 this ? am,s/p melanoma years ago, os a, ? goiter s/p surgery, [facility] Providers: ? Nohemi Swann MD, Blanca xiong, [...] Laterality 01/16/2014 7:25 AM EDT Angela Sotelo DISH ROOM WORKER GENERAL SURGICAL ORDERABLES Performing Organization Address [...] documented in this encounter Care Teams Box Storage Worker Relationship Specialty Start Date End Date Angela Sotelo APRN PCP - General 01/25/13 04/15/[address] [place] [address] documented as of this encounter
--- OUTSIDE RECORDS SUMMARY | 2022-04-10 09:06 | XMS_ITS | Encounter Summary ---
:1945 Author Organization [facility] [place] [address] Care Team Providers Name Role Phone Lovely Vicente MD Primary Care Provider Reason for Visit Reason Comments Skin Check Encounter Details Date Type Department Care Team Description 06/05/2016 Office Visit Dermatology at [facility] istory of melanoma; Abdelrahman HOOPER MD Seborrheic keratosis; [address] [facility] [place] (actinic keratosis); [place] [address] Multiple nevi; [phone] [facility] [address]-DERMATOLGY [place], [place] [address] Social History Tobacco Use Types [...] Diagnostic, Drum (ACCU-CHEK COMPACT TEST) Strip by [facility].(Non- Drug; Combo Route) route 2 times [...] Cardiology Zulma Dolan MD [facility] [place], [place] [address] (Wo rk) 05/28/2022 Laboratory Appointment Lab 05/28/2022 Office Visit Cardiology Zulma Dolan MD [facility] [place] [address] Liz Poole PA [facility] [place] [address] 06/10/2022 Office Visit Dermatology Laura Scherer MD [facility] [address] [place], [place] [address] (Wo rk) documented as of this encounter Visit Diagnoses Diagnosis History of melanoma Personal history of malignant melanoma o f skin Seborrheic keratosis Other seborrheic keratosis [place] (actinic keratosis) Actinic keratosis Multiple nevi Benign neoplasm of skin, site unspecifie d Scar Scar condition and fibrosis of skin documented in this encounter Care Teams Roustabout Head Relationship Specialty Start Date End Date Lovely Vicente MD PCP - General 04/16/[address] [place] [address] documented as of this encounter
--- OUTSIDE RECORDS SUMMARY | 2022-04-10 09:06 | XMS_ITS | Encounter Summary ---
:1945 Author Organization [facility] [place] [address] Care Team Providers Name Role Phone Angela Holliday APRN Primary Care Provider Encounter Details Date Type Department Care Team Description 01/25/2013 Clinical [place] [address] Social History Tobacco Use Types Packs/Day [...] Zulma Dolan MD [facility] [address] [place], [place] [address] (Wo rk) 05/28/2022 Laboratory Appointment Lab 05/28/2022 Office Visit Cardiology Zulma Dolan MD [facility] [place] [address] Liz Poole PA [facility] [place] [address] 06/10/2022 Office Visit Dermatology Laura Scherer MD [facility] [address] [place], [place] [address] (Wo rk) documented as of this encounter Visit Diagnoses Not on filedocumented in this encounter Care Teams Production Line Assembler Relationship Specialty Start Date End Date Angela Holliday APRN PCP - General 01/25/13 04/15/[address] [place] [address] documented as of this encounter
--- OUTSIDE RECORDS SUMMARY | 2022-04-10 09:06 | XMS_ITS | Encounter Summary ---
:1945 Author Organization [place] [address] Care Team Providers Name Role Phone MiyaLokeshAngela STACIE Primary Care Provider Encounter Details Date Type Department Care Team Description 04/04/2013 Orders Only General Surgery at Manny Mcknight thyroid [facility] MD Eliseo carcinoma (Primary Dx) [facility] [place] [address] GENERAL SURGERY [phone] [place], [place] [address] Social History Tobacco Use Types [...] MD [facility] er [address] [place], [place] [address] (Wo rk) 05/28/2022 Laboratory Appointment Lab 05/28/2022 Office Visit Cardiology Zulma Dolan MD [facility] [place] [address] Liz Poole PA [facility] [place] [address] 06/10/2022 Office Visit Dermatology Laura Scherer MD [facility] [address]-DERMAT [place], [place] [address] (Wo rk) documented as of this encounter Visit Diagnoses Diagnosis Papillary thyroid carcinoma - Primary Malignant neoplasm of thyroid gland documented in this encounter Care Teams General Internal Medicine Physician Relationship Specialty Start Date End Date Angela Holliday APRN PCP - General 01/25/13 04/15/[address] [place] [address] documented as of this encounter
--- OUTSIDE RECORDS SUMMARY | 2022-04-10 09:06 | XMS_ITS | Encounter Summary ---
:1945 Author Organization [facility] [address] Care Team Providers Name Role Phone MiyaAngela STACIE Primary Care Provider Reason for Visit Reason Comments Post Op voiding trial Encounter Details Date Type Department Care Team Description 04/05/2013 Office Visit [facility]rology at [facility] Darryl Egan, UTI ([facility] MD tract infection) [facility] (Primary Dx) [place] [address] UROLOGY DEPT [phone] [place], [place] [address] Social History Tobacco Use Types [...] Cardiology Zulma Dolan MD [facility] [place], [place] [address] (Wo rk) 05/28/2022 Laboratory Appointment Lab 05/28/2022 Office Visit Cardiology Zulma Dolan MD [facility] [place] [address] Liz Poole PA [facility] [place] [address] 06/10/2022 Office Visit Dermatology Laura Scherer MD [facility] DR TE[address] GR[address], [place] [address] (Wo rk) documented [...] Component Value Ref Test Analysis Performed At [facility] [place] Method Time Signature Urine Culture CERNER ? Patient Name: GREGORY HOANG ? Ordered By: DARRYL EGNA [facility] ? MR#: [id number] ?LOC: ??5B ? /Sex: ??1945 (68 years), [...] S ? Patient: GREGORY HOANG ? MR#: [id number] ? FOOTNOTES ? (1) ? This organism [...] Organization Address City/State/[place] [address] RAKESH WALKER documented in this encounter Visit Diagnoses Diagnosis UTI (lower urinary tract infection) - Pr imary Urinary tract infection, site not specif ied documented in this encounter Care Teams Collection Card Clerk Relationship Specialty Start Date End Date Angela Holliday APRN PCP - General 01/25/13 04/15/[address] [place] [address] documented as of this encounter
--- OUTSIDE RECORDS SUMMARY | 2022-04-10 09:06 | XMS_ITS | Encounter Summary ---
:1945 Author Organization [facility] [place] [address] Care Team Providers Name Role Phone Lovely Vicente MD Primary Care Provider Reason for Visit Reason Comments Medication Refill Encounter Details Date Type Department Care Team Description 05/10/2015 Refill Endocrinology at [facility] Rosalind Covarrubias, [facility] [place] [address] [facility] [phone] ENDOCRINOLOGY [place], [place] [address] (Wo rk) Social History Tobacco [...] Dolan MD [facility] er [address] [place], [place] [address] (Wo rk) 05/28/2022 Laboratory Appointment Lab 05/28/2022 Office Visit Cardiology Zulma Dolan MD [facility] [place] [address] Liz Poole PA [facility] [place] [address] 06/10/2022 Office Visit Dermatology Laura Scherer MD [facility] ER [address]DERMAT [place], [place] [address] (Wo rk) documented as of this encounter Visit Diagnoses Not on filedocumented in this encounter Care Teams E Commerce Merchant Relationship Specialty Start Date End Date Lovely Vicente MD PCP - General 04/16/[address] [place] [address] documented as of this encounter
--- OUTSIDE RECORDS SUMMARY | 2022-04-10 09:06 | XMS_ITS | Encounter Summary ---
:1945 Author Organization [facility] Address [facility] [place] [address] Care Team Providers Name Role Phone Unknown Primary Care Provider Unavailable Reason for Visit Reason Comments Skin Check Encounter Details Date Type Department Care Team Description 10/04/2012 Follow-Up Dermatology at Rigoberto Forman soriasis (Primary Dx); Abdelrahman HOOPER MD Neoplasm of unspecified nature of bone, soft tissue, and skin; [address] [facility] Skin lesion of chest wall; [place] [address] Seborrheic psoriasis- scalp and ingtergl uteal area [phone] [facility] [place], [place] [address] (Wo rk) Social History Tobacco [...] changes: Rigoberto Albarran MD Section of Dermatology [facility] documented in this encounter Plan of Treatment Upcoming Encounters Date Type Specialty Care Team Description 05/28/2022 Appointment Cardiology Zulma Dolan MD [facility] [address] [place], [place] [address] (Wo rk) 05/28/2022 Laboratory Appointment Lab 05/28/2022 Office Visit Cardiology Zulma Dolan MD [facility] [place] [address] Liz Poole PA [facility] [place] [address] 06/10/2022 Office Visit Dermatology Laura Scherer MD [facility] DR TEJA GR-DERMAT [place], [place] [address] (Wo rk) documented as [...] Ref Test Analysis Performed At [facility] gist Range Method Time Signature Surgical CERNER Pathology ? [facility] Report ? Provider: ?? RIGOBERTO ALBARRAN III Pt. Name: ?? DON HOANG ?A ? Acc #: ?[id number] ? Pt. ? Col Date: ?? 3 [...] S Performing Organization Address City/[facility]/ZIP Code Phon e Number [address] [facility] Specimen to Pathology (NON-OR) (10/04/2012 9:55 AM EDT) Specimen Anatomical Collection Method Collection Time Receive d Time (Source) Location / / Volume Laterality AP Specimen 10/04/2012 9:55 AM 201 3 9:56 EDT AM EDT Narrative [facility] - 10/04/2012 9:56 AM E DT Specimen requisition ordered. ??Separate Pathology report to follow Rigoberto Albarran III, MD PATHOLOGY/CYTOLOGY ORDERABLE S Performing Organization Address City/[facility]/ZIP Code Phon e Number [address] [facility] documented in this encounter Visit Diagnoses Diagnosis Psoriasis - Primary Other psoriasis Neoplasm of unspecified nature of bone, soft tissue, and skin Skin lesion of chest wall Unspecified disorder of skin and subcuta neous tissue Seborrheic psoriasis- scalp and ingtergl uteal area Other psoriasis documented in this encounter Care Teams Auto Mechanic Apprentice Relationship Specialty Start Date End Date Unknown PCP - General 10/04/12 01/24/13 None documented as of this encounter
--- OUTSIDE RECORDS SUMMARY | 2022-04-10 09:06 | XMS_ITS | Encounter Summary ---
:1945 Author Organization [facility] [place] [address] Care Team Providers Name Role Phone Angela Holliday APRN Primary Care Provider Reason for Visit Reason Comments Skin Check Encounter Details Date Type Department Care Team Description 07/31/2013 Follow-Up Dermatology at Rigoberto Forman eoplasm of unspecified nature of bone, soft tissue, and skin (Primary Dx); Abdelrahman HOOPER MD Seborrheic psoriasis- scalp and ingtergl uteal area; [address] [facility] Atypical [place] [address] [facility] [place], [place] [address] (Wo rk) Social History Tobacco [...] encounter. Rigoberto Albarran MD Section of Dermatology [facility] documented in this encounter Plan of Treatment Upcoming Encounters Date Type Specialty Care Team Description 05/28/2022 Appointment Cardiology Zulma Dolan MD [facility] [address] [place] [address] (Wo lissa) 05/28/2022 Laboratory Appointment Lab 05/28/2022 Office Visit Cardiology Zulma Dolan MD [facility] [place] [address] Liz Poole PA [facility] [place] [address] 06/10/2022 Office Visit Dermatology Laura Scherer MD [facility] [address] TEJA GR-DERMAT [place], [place] [address] (Wo rk) Scheduled Orders Name [...] Ref Test Analysis Performed At [facility] gist Range Method Time Signature Surgical CERNER Pathology ? [facility] Report ? Provider: ?? RIGOBERTO ALBARRAN III Pt. Name: ?? GREGORY HOANG ?A ? Acc #: ?[id number] ? Pt. ? Col Date: ?? 07/31/2013 [...] negative controls. ??These ? IHC studies provide [facility] pathologist with adjunctive diagnostic information. [...] 0.9 x 0.8 x 0.2 cm. ? [facility] ? Provider: ?? DEION III, RIGOBERTO Pt. Name: ?? GREGORY HOANG ?A ? Acc #: ?[id number] ? Pt. ? Col Date: ?? 07/31/2013 [...] MD PATHOLOGY/CYTOLOGY ORDERABLE S Performing Organization Address City/[facility]/ZIP Code Phon e Number [address] CERNER MILLENNIUM Specimen [...] MD PATHOLOGY/CYTOLOGY ORDERABLE S Performing Organization Address City/[facility]/[place]IP [place] [address] CERNER MILLENNIUM documented in this encounter Visit Diagnoses Diagnosis Neoplasm of unspecified nature of bone, soft tissue, and skin - Primary Seborrheic psoriasis- scalp and ingtergl uteal area Other psoriasis Atypical nevus of abdominal wall Benign neoplasm of skin of trunk, except scrotum documented in this encounter Care Teams Accounting Lecturer Relationship Specialty Start Date End Date Angela Holliday APRN PCP - General 01/25/13 04/15/[address] [place] [address] documented as of this encounter
--- OUTSIDE RECORDS SUMMARY | 2022-04-10 09:07 | XMS_ITS | Encounter Summary ---
:1945 Author Organization [facility] [place] [address] Care Team Providers Name Role Phone Adi Costello MD Primary Care Provider Reason for Visit Reason Comments Annual Exam ckeck his groin and melanoma follow-up Encounter Details Date Type Department Care Team Description 11/21/2010 Follow-Up Dermatology Arik Tipton Melanoma (Primary Dx) [facility] MD Jorge [place] [phone] DERMATOLOGY DEPT . 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, skin [...] changes: Arik Tipton MD Section of Dermatology [facility] documented in this encounter Plan of Treatment Upcoming Encounters Date Type Specialty Care Team Description 05/28/2022 Appointment Cardiology Zulma Dolan MD [facility] [address] [place], [place] [address] (Wo rk) 05/28/2022 Laboratory Appointment Lab 05/28/2022 Office Visit Cardiology Zulma Dolan MD [facility] [place] [address] Liz Poole PA [facility] [place] [address] 06/10/2022 Office Visit Dermatology Laura Scherer MD [facility] DR TEJA GR-[place], [place] [address] (Wo rk) documented as of this encounter Visit Diagnoses Diagnosis Melanoma - Primary Melanoma of skin, site unspecified documented in this encounter Care Teams Casino Slot Supervisor Relationship Specialty Start Date End Date Adi Costello MD PCP - General 06/17/10 09/21/11 [address] [place] [address] documented as of this encounter
--- OUTSIDE RECORDS SUMMARY | 2022-04-10 09:07 | XMS_ITS | Clinical Summary ---
:1945 Author Organization [facility] Address [address] [place] [address] Care Team Providers Name Role Phone Lovely [...] i n the results section. COVID-19 TEST [facility] Today 01/27/2022 14:30 LAB PCR [...] e Number [facility] [address] [place] [address] SERVICES COVID-19 TEST [facility] LAB PCR (01/27/2022 14:30 EDT) Specimen Swab Performing Organization Address City/[facility]/ZIP Code Phon e Number [facility] [address] [place] [address] SERVICES COVID-19 TESTING (01/27/2022 14:30 EDT) COVID-19 [...] performed using the meliton SARS-CoV-2 assay ([employer] on the Meliton 6800 System Performing Lab Meliton 6800 [facility] Lab [facility] SERVICES Specimen Swab Performing Organization Address City/[facility]/ZIP Code Phon e Number [facility] [address] [place] [address] SERVICES from Last 3 Months Care Teams Grinder Operator Relationship Specialty Start Date End Date Lovely Vicente MD PCP - General 07/13/14
--- OUTSIDE RECORDS SUMMARY | 2022-04-10 09:07 | XMS_ITS | Encounter Summary ---
:1945 Author Organization [facility] [place] [address] Care Team Providers Name Role Phone Brody Berrios MD Primary Care Provider Reason for Visit Reason Comments Annual Exam Encounter Details Date Type Department Care Team Description 09/22/2011 Follow-Up Dermatology Arik Tipton Psoriasis (Primary Dx); [facility] MD Jorge Personal history of other malignant neop lasm of skin Drive [place] [phone] DERMATOLOGY DEPT . 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 His only complaints tail bone and scalp [...] Arik Tipton MD Section of Dermatology [facility] documented in this encounter Plan of Treatment Upcoming Encounters Date Type Specialty Care Team Description 05/28/2022 Appointment Cardiology Zulma Dolan MD [facility] [address] [place], [place] [address] (Wo rk) 05/28/2022 Laboratory Appointment Lab 05/28/2022 Office Visit Cardiology Zulma Dolan MD [facility] [place] [address] Liz Poole PA [facility] [place] [address] 06/10/2022 Office Visit Dermatology Laura Scherer MD [facility] [address]-[place]MAT [place], [place] [address] (Wo rk) documented as of this encounter Visit Diagnoses Diagnosis Psoriasis - Primary Other psoriasis Personal history of other malignant neop lasm of skin documented in this encounter Care Teams Deputy Court Clerk Relationship Specialty Start Date End Date Brody Berrios MD PCP - General 09/22/11 10/03/[address] [place] [address] documented as of this encounter
--- OUTSIDE RECORDS SUMMARY | 2022-04-10 09:08 | XMS_ITS ---
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 Problem Critical ischemia I99.8 Active of lower extremity Problem Atherosclerosis I70.90 Active 3871 6007 Problem Type 2 diabetes E11.628 Active mellitus with other skin complications Problem 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 40 ; Acquired deformi ty of right foot M21.961 ; L luis term current use of i nsulin Z79.4 ; History of art erial bypass of lower extremi ty Z95.828 ; Atherosclerosis I70.90 and History of Lisfr anc amputation of fo ot Z89.439 [facility] Feb, Type 2 diabet es mellitus [address] [place], [place] with diabe tic neuropathy, [address] unspecified E11. 40 ; Acquired deformi ty of right foot M21.961 ; L luis term current use of i nsulin Z79.4 ; History of art erial bypass of lower extremi ty Z95.828 ; Atherosclerosis I70.90 and History of Lisfr anc amputation of fo ot Z89.439 [facility] November, [place] [address] [facility] [facility] November, Type 2 [place]ete [place] [address] with diabeti c neuropathy, unspecified E11. 40 ; Acquired deformi ty of right foot M21.961 ; L luis term current use of i nsulin Z79.4 ; History of art erial bypass of lower extremi ty Z95.828 ; Atherosclerosis I70.90 and History of Lisfr anc amputation of fo ot Z89.439 [facility] 10 Aug, 2019 Type 2 [place] [address] with other skin complications E1 1.628 ; Tinea pedis of l eft foot B35.3 ; Type 2 d iabetes mellitus with di abetic neuropathy, unsp ecified E11.40 ; Acquire d deformity of right foot M2 1.961 ; skilled nursing current use of insulin Z79.4 ; History of arterial bypass of lower extremity Z95.828 and Athe rosclerosis I70.90 [facility] Jun, [place] [address] [facility] Jun, [place] [address] [address] Jun, Type 2 diabet es mellitus [place], [place] with other skin [address] complications E1 1.628 ; Acquired deformi ty of right foot M21.961 ; T ype 2 diabetes mellitu s with diabetic neuropa thy, unspecified E11. 40 ; terminal supervisor current use of insulin Z79.4 and Histor y of arterial bypass of lower extremity Z95.82 8 [facility] Feb, Type 2 [place]ete [place] [address] with other s kin complications E1 1.628 ; Acquired deformi ty of right foot M21.961 ; T ype 2 diabetes mellitu s with diabetic neuropa thy, unspecified E11. 40 ; skilled nursing current use of insulin Z79.4 and Histor y of arterial bypass of lower extremity Z95.82 8 [facility] November, Tinea pedis o f left foot [place], [place] B35.3 ; Ty pe 2 diabetes [address] mellitus with ot her skin complications E1 1.628 ; Acquired deformi ty of right foot M21.961 ; T ype 2 diabetes mellitu s with diabetic neuropa thy, unspecified E11. 40 ; terminal supervisor current use of insulin Z79.4 and Histor y of arterial bypass of lower extremity Z95.82 8 [facility] November, [place] [address] [address] Aug, Type 2 diabet es mellitus [place], [place] with diabe tic neuropathy, [address] unspecified E11. 40 ; Acquired deformi ty of right foot M21.961 ; P eripheral arterial disease I73.9 ; History of arter ial bypass of lower extremi ty Z95.828 ; skilled nursing curren t use of insulin Z79.4 an d History of Lisfranc amputat ion of foot Z89.439 UNKNOWN Jul, [facility] 11 Jun, 2018 Type 2 [place]ete [place] [address] with diabeti c neuropathy, unspecified E11. [address] [facility] Apr, Edema of both legs R60.0 ; [place], [place] Acquired d eformity of right [address] foot M21.961 ; P eripheral arterial disease I73.9 ; History of arter ial bypass of lower extremi ty Z95.828 ; terminal supervisor curren t use of insulin Z79.4 an d Type 2 diabetes mellitu s with diabetic neuropa thy, unspecified E11. [address] [facility] Mar, [place] [address] [address] Mar, Edema of both legs R60.0 ; [place] Acquired d eformity of right [address] foot M21.961 ; P eripheral arterial disease I73.9 ; History of arter ial bypass of lower extremi ty Z95.828 ; terminal supervisor curren t use of insulin Z79.4 an d Type 2 diabetes mellitu s with diabetic neuropa thy, unspecified E11. 40 [facility] Feb, Edema of both legs R60.0 ; [place] [address] Ulcer of lef t calf, limited to breakdown of skin L97.221 ; Acquired defor mity of right foot M21.9 61 ; Peripheral arter ial disease I73.9 ; History of arterial bypass of lower extremity Z95.828 ; Long t erm current use of insulin Z 79.4 and Type 2 diabetes mellitus with diabetic ne uropathy, unspecified E11. 40 [facility] Feb, [facility] [place] [address] [facility] Feb, Edema of both legs R60.0 ; [place] [address] Ulcer of rig ht calf, limited to [...] 40 [facility] Feb, [place] [address] [facility] [address] [facility] [address] Feb, [place] [address] [facility] [address] [facility] [facility] Jan, [place] [address] [facility] [address] [facility] [address] Jan, [place] [address] [facility] [address] [facility] [address] Jan, [place] [address] [facility] [address] [facility] [address] Jan, [place] [address] [facility] [address] [facility] [place] [place], [place] [address] [facility] [address] [facility] [facility] [address] Dec, [place] [address] [facility] [address] Dec, [place] [address] [facility] [address] [facility] [facility] [address] Dec, [place] [address] [facility] [address] [facility] [facility] [address] Dec, [place] [address] [facility] Dec, [place] [address] [facility] [address] [facility] [address] Dec, [place] [address] [facility] November, [place] [address] [facility] November, [place] [address] [facility] November, [place] [address] [facility] November, [place] [address] [facility] November, [place] [address] [facility] November, [place] [address] UNKNOWN November, [facility] [address] [place] [address] November, OFFICE [place] [address] [facility] November, [place], [place] [address] [facility] Oct, [place] [address] [facility] Oct, [place] [address] [facility] Oct, [place] [address] [facility] [address] [place] 18 Oct, 2017 [place] [address] [facility] 16 Oct, 2017 [place] [address] [facility] [address] [place] 16 Oct, 2017 [facility] [address] [facility] Oct, [place] [address] [facility] Oct, [place], [place] [address] [facility] Oct, [place] [address] [facility] [address] Sep, [facility] [address] [facility] Sep, [place] [address] [facility] [address] [place] Sep, [place] [address] [facility] [address] [place] Sep, [place] [address] [facility] [address] [place] Sep, [place] [address] [facility] [address] [place] Sep, Critical ischemi a of lower [place] [address] extremity I 99.8 ; Local infection of the skin and subcutaneous tis lindsey, unspecified L08. 9 and Type 2 diabetes mellitu s with other skin complicatio ns E11.628 [facility] Sep, [place] [address] [facility] [address] [facility] [address] Sep, [place] [address] [facility] [address] [facility] [address] Sep, [place] [address] [facility] [address] [facility] 14 Sep, [address] [place] [address] [facility] Sep, [place] [address] [facility] Sep, [place] [address] [facility] Sep, [place] [address] [facility] Sep, [place] [address] [facility] [address] [facility] [address] Aug, [place] [address] [facility] [address] [place] Aug, [facility] [address] [facility] [address] [place] Aug, [place] [address] [facility] Aug, [place] [address] [facility] Aug, [place] [address] [facility] Aug, [place] [address] ORTHOPEDIC OFFICE [facility] Aug, Pre-op exam Z01.818 [place] [address] [facility] Aug, [place] [address] [facility] Aug, [place] [address] [facility] Aug, [place] [address] IMMUNIZATIONS No Known Immunizations SOCIAL HISTORY Qualifiers [...] subcutaneously 22 24h Active units/mL daily Pen Elko Active Ciclopirox Externally Twice 1 application 12h [...] For Report MR Lower Ext R w/o ([id number]) 2017-09-16 See Below For Report CR C-ARM [...] A1c 03/04/18 - 6.7, [facility] annually, f/u - bilateral leg edema, Pt [...] at wound center,lab work done 03/07/2018 @ [facility], Patient came in with tubigrip bilateral , wound clin est, wound clinest, Wound CTR-follow up, Wound CTR-follow up, Wound CTR-follow up, Peer to Peer w/ Dr. Espino, Wound CTR-follow up, Wound CTR-follow up, Worship Leader Documentation, LAB, Wound CTR-follow up, Wound CTR-follow up, Wound CTR-follow up, Wound CTR-follow up, LAB, LAB, Wound CTR- follow up, Wound CTR-follow up, Wound CTR-follow up, Worship Leader Documentation, [facility], Wound CTR-follow up, Wound CTR-follow up, Pull PICC Line, Wound CTR-follow up, Wound CTR-follow up, LAB, Still taking doxycycline 100mg? , Wound CTR-follow up, Wound CTR-follow up, Wound CTR-follow up, Worship Leader Documentation, Wound CTR-follow up, Wound CTR-follow up, Call back, Worship Leader Documentation, Worship Leader Documentation, Worship Leader Documentation, Wound CTR-follow up, WCC, Wound CTR-follow up, Wound CTR-follow up, labs, D/C planning, bailey smetatarsal amputation of right foot, LAB, LAB, Wound CTR-NEW Insurance Providers [facility] Member Patient Patient Patient Patient Patient Subscriber Subscriber Subscriber Group Insurance Plan Plan Plan Plan ID Relationship Address Phone Name Date of ID Name Date of No Type Insurance Insurance Insurance Coverage to Subscriber Address Phone Name Dates SELF PAY ANY STREET SELF PAY self GREGORY [id number] AFTER BLUE [place] AFTER [facility] [id number] [place]OSS MEDICARE 3000 [place] MEDICARE self GREGORY [id number] 1 [id number] [facility] [id number] OTHER [address] [place] [phone] OTHER GREGORY [id number] GRANT 1^MAIN GRE[employer] [facility] PAYOR [id number] S-BLUE [phone] S-BLUE [place]REG[place] [id number] [address] [address] [place] [address] [place]
--- OUTSIDE RECORDS SUMMARY | 2022-04-10 09:08 | XMS_ITS | Encounter Summary ---
:1945 Author Organization [facility] Address [address] [place] [address] Care Team Providers Name Role Phone Unknown, Provider Primary Care Provider Encounter Details Date Type Department Care Team Description 03/05/2014 Results Only [facility] Eris Taylor MD Laboratory Services - [address] [place] [address] [place] [address] [phone] Social History Tobacco Use Types Packs/Day Years [...] ? DON HOANG ? Accession #: ? [id number] ? : ? 1945 (Age: 68) ??M [...] [facility] [address] [place] [address] SERVICES [facility] [address] [place] [address] documented in this encounter Visit Diagnoses Not on filedocumented in this encounter Care Teams Civil Engineering Project Designer Relationship Specialty Start Date End Date Unknown, Provider, PCP - General 03/07/14 07/12/14 documented as of this encounter
--- OUTSIDE RECORDS SUMMARY | 2022-04-10 09:08 | XMS_ITS | Encounter Summary ---
:1945 Author Organization [facility] Address [address] [place] [address] Care Team Providers Name Role Phone Lovely Vicente MD Primary Care Provider Encounter Details Date Type Department Care Team Description 08/11/2019 [facility], Provider, Pathology & Laboratory [facility] [address] [facility] [place] [address] Social History Tobacco Use Types Packs/Day Years [...] (08/11/2019 14:35 EST) Giardia and Cryptosporidium Cryptosporidium [facility] Cryptosporidium Antigen Neg and Antigen Neg and CENTER Giardia Antigen Neg Giardia Antigen Neg LABORATORY SERVICES Specimen Feces - Specimen from rectum (specimen) Performing Organization Address City/State/ZIP Code Phon e Number [facility] LABORATORY [address] [place] [address] SERVICES documented in this encounter Visit Diagnoses Not on filedocumented in this encounter Care Teams Branch Banker Relationship Specialty Start Date End Date Lovely Vicente MD PCP - General 07/13/14 documented as of this encounter
--- OUTSIDE RECORDS SUMMARY | 2022-04-10 09:08 | XMS_ITS | Encounter Summary ---
:[address] [facility] Address [address] [place] [address] Care Team Providers Name Role Phone Lovely Vicente MD Primary Care Provider Encounter Details Date Type Department Care Team Description 01/01/2020 Lab Requisition [facility] Outr Resulting Lab, Pathology & Laboratory Provider [facility] [address] [place] [address] Social History Tobacco Use Types Packs/Day Years [...] nature PSA 2.1 0.0 - 6.5 ng/mL [facility] LABORA TORY SERVICES Specimen Blood - Venous blood (substance) Narrative [facility] LABORATORY SERVICES - 01/02/2020 10:40 EDT NOTE: Serum PSA concentration should not be in terpreted as absolute evidence for the presence or absence of malignant disease. Assayed on Siemens ADVIA Centaur XPT usi ng chemiluminescent technology.??Values obtained by using different assay methods cannot be used interchangeably. Performing Organization Address City/State/ZIP Code Phon e Number [facility] LABORATORY [address] [place] [address] SERVICES documented in this encounter Visit Diagnoses Not on filedocumented in this encounter Care Teams Avionics Shop Supervisor Relationship Specialty Start Date End Date Lovely Vicente MD PCP - General 07/13/14 documented as of this encounter
--- OUTSIDE RECORDS SUMMARY | 2022-04-10 09:08 | XMS_ITS | Encounter Summary ---
:1945 Author Organization [facility] Address [address] [place] [address] Care Team Providers Name Role Phone Unavailable Primary Care Provider Unavailable Encounter Details Date Type Department Care Team Description 03/05/2014 Hospital Encounter [facility] [place] Unknown, Provider, [facility] 0 [facility] [phone] [place] [address] (Work) [phone] Social History Tobacco Use Types Packs/Day Years [...]
--- OUTSIDE RECORDS SUMMARY | 2022-04-10 09:08 | XMS_ITS | Encounter Summary ---
:1945 Author Organization [facility] Address [address] [place] [address] Care Team Providers Name Role Phone Lovely Vicente MD Primary Care Provider Encounter Details Date Type Department Care Team Description 01/28/2022 Lab Requisition [facility] Outr Resulting Lab, Pathology & Laboratory Provider [facility] [address] [place] [address] Social History Tobacco Use Types Packs/Day Years Used Date Never Assessed Sex Assigned at Date Recorded Not on file documented as of this encounter Plan of Treatment Not on filedocumented as of this encounter Procedures Procedure Name Priority Date/Time Associated Diagnosis Comme nts COVID-19 TEST [facility] Today 01/27/2022 14:30 LAB PCR EDT COVID-19 TESTING Routine 01/27/2022 14:30 Results for this EDT procedure are i n the results section. documented in this encounter Results COVID-19 TEST [facility] LAB PCR (01/27/2022 14:30 EDT) Specimen Swab Performing Organization Address City/State/ZIP Code Phon e Number [facility] LABORATORY [address] [place] [address] SERVICES COVID-19 TESTING (01/27/2022 14:30 EDT) COVID-19 rt-PCR Negative Negative [facility] Result Comment: CENTER LABORATORY This [...] was performed using the meliton SARS-CoV-2 assay ([employer] on the Meliton 6800 System Performing Lab Meliton 6800 [facility] Lab [facility] LABORATORY SERVICES Specimen Swab Performing Organization Address City/State/ZIP Code Phon e Number [facility] LABORATORY [address] [place] [address] SERVICES documented in this encounter Visit Diagnoses Not on filedocumented in this encounter Care Teams Photocomposing Machine Operator Relationship Specialty Start Date End Date Lovely Vicente MD PCP - General 07/13/14 documented as of this encounter
--- OUTSIDE RECORDS SUMMARY | 2022-04-10 09:08 | XMS_ITS | Encounter Summary ---
:1945 Author Organization [facility] Address [address] [place] [address] Care Team Providers Name Role Phone Unknown, Provider Primary Care Provider Encounter Details Date Type Department Care Team Description 07/11/2014 Hospital Encounter [facility] [place] Unknown, Provider, [facility] [address] [place] [address] [place] [address] (Work) [phone] Social History Tobacco Use Types Packs/Day Years Used Date Never Assessed Sex Assigned at Date Recorded Not on file documented as of this encounter Discharge Disposition Disposition Code Departure Means Destination Home or Self Correction documented in this encounter Plan of Treatment Not on filedocumented as of this encounter Visit Diagnoses Not on filedocumented in this encounter Care Teams Photovoltaic Technician Relationship Specialty Start Date End Date Unknown, Provider, PCP - General 03/07/14 07/12/14 documented as of this encounter
--- OUTSIDE RECORDS SUMMARY | 2022-04-10 09:08 | XMS_ITS | Encounter Summary ---
:1945 Author Organization [facility] Address [address] [place] [address] Care Team Providers Name Role Phone Lovely Vicente MD Primary Care Provider Encounter Details Date Type Department Care Team Description 01/17/2021 Lab Requisition [facility] Outr Resulting Lab, Pathology & Laboratory Provider [facility] [address] [place] [address] Social History Tobacco Use Types Packs/Day Years [...] nature PSA 2.9 0.0 - 6.5 ng/mL [facility] LABORA TORY SERVICES Specimen Blood - Venous blood (substance) Narrative [facility] LABORATORY SERVICES - 01/17/2021 17:46 EDT NOTE: Serum PSA concentration should not be in terpreted as absolute evidence for the presence or absence of malignant disease. Assayed on Siemens [employer] Centaur XPT usi ng chemiluminescent technology.??Values obtained by using different assay methods cannot be used interchangeably. Performing Organization Address City/State/ZIP Code Phon e Number [facility] LABORATORY [address] [place] [address] SERVICES documented in this encounter Visit Diagnoses Not on filedocumented in this encounter Care Teams Dual Rate Supervisor Relationship Specialty Start Date End Date Lovely Vicente MD PCP - General 07/13/14 documented as of this encounter
--- OUTSIDE RECORDS SUMMARY | 2022-04-10 09:08 | XMS_ITS | Encounter Summary ---
:1945 Author Organization [facility] Address [address] [place] [address] Care Team Providers Name Role Phone Lovely Vicente MD Primary Care Provider Encounter Details Date Type Department Care Team Description 04/04/2021 Lab Requisition [facility] Outr Resulting Lab, Pathology & Laboratory Provider [facility] [address] [place] [address] Social History Tobacco Use Types Packs/Day Years [...] (04/03/2021 12:15 EDT) Giardia and Cryptosporidium Cryptosporidium [facility] Cryptosporidium Antigen Neg and Antigen Neg and CENTER Giardia Antigen Neg Giardia Antigen Neg LABORATORY SERVICES Specimen Feces - Specimen from rectum (specimen) Performing Organization Address City/State/ZIP Code Phon e Number [facility] LABORATORY [address] [place] [address] SERVICES documented in this encounter Visit Diagnoses Not on filedocumented in this encounter Care Teams Sample Tailor Relationship Specialty Start Date End Date Lovely Vicente MD PCP - General 07/13/14 documented as of this encounter
--- OUTSIDE RECORDS SUMMARY | 2022-04-10 09:08 | XMS_ITS | Encounter Summary ---
:1945 Author Organization [facility] Address [address] [place] [address] Care Team Providers Name Role Phone Lovely Vicente MD Primary Care Provider Encounter Details Date Type Department Care Team Description 02/20/2022 Lab Requisition [facility] Outr Resulting Lab, Pathology & Laboratory Provider [facility] [address] [place] [address] Social History Tobacco Use Types Packs/Day Years [...] Pathologist Sig nature PSA 2.7 <=6.5 ng/mL [facility] LABORATOR Y SERVICES Specimen Blood - Venous blood (substance) Narrative [facility] LABORATORY SERVICES - 02/20/2022 18:17 EDT NOTE: Serum PSA concentration should not be in terpreted as absolute evidence for the presence or absence of malignant disease. Assayed on Siemens ADVIA Centaur XPT usi ng chemiluminescent technology.??Values obtained by using different assay methods cannot be used interchangeably. Performing Organization Address City/State/ZIP Code Phon e Number [facility] LABORATORY [address] [place] [address] SERVICES documented in this encounter Visit Diagnoses Not on filedocumented in this encounter Care Teams Hazmat Cdl Driver Relationship Specialty Start Date End Date Lovely Vicente MD PCP - General 07/13/14 documented as of this encounter
--- OUTSIDE RECORDS SUMMARY | 2022-04-13 08:06 | XMS_ITS | Encounter Summary ---
:1945 Author Organization [facility] [place] [address] Care Team Providers Name Role Phone Lovely Vicente MD Primary Care Provider Encounter Details Date Type Department Care Team Description 02/19/2022 Laboratory Appointment Lab 3L [facility] [place] [id number] Social History Tobacco Use Types Packs/Day Years [...] MD [facility] [place] [address] [place] [address] (Wo rk) 05/28/2022 Laboratory Appointment Lab 05/28/2022 Office Visit Cardiology Zulma Dolan MD [facility] [place] [address] Liz Poole PA [facility] [place] [address] 06/10/2022 Office Visit Dermatology Laura Scherer MD [facility] [address] [place] [address] (Wo rk) documented as of this encounter [...] (ABNORMAL) Differential, Automated (02/19/2022 8:06 AM EDT) [facility] gist Method Time Signature Neutrophils % 76.0 % [facility] LABOR[facility] Neutr Abs (ANC) 5.49 1.70 - [facility] [address] [facility] x10(3)/[facility] LABORATORY Lymphocytes % 10.8 % [facility] Lymphocytes Abs 0.8 (L) 0.9 - 3.2 [facility] x10(3)/[facility] LABORATORY Monocytes % 10.2 % [facility] Monocyte Abs 0.7 0.3 - 0.9 [facility] x10(3)/[facility] LABORATORY Eosinophils % 1.2 % [facility] Eosinophils Abs 0.1 0.0 - 0.4 [facility] x10(3)/[facility] LABORATORY Basophils % 0.8 % [facility] Basophils Abs 0.1 0.0 - 0.1 [facility] x10(3)/[facility] LABORATORY Immature Gran % 1.00 % [facility] Comment: Immature granulocytes(IG's)percentage an d absolute count will include metamyelocytes, myelocytes, and promyelo cytes. Blood smears from CBCs yielding IG's will be scanned manually for concor dance. If this scan disagrees with the automated IG or if promyelocytes are not ed, a manual differential will be performed. Melisa Gran Abs 0.07 (H) 0.00 - 0.04 x10(3)/[facility] LABORATORY Specimen Anatomical Collection Method Collection Time Receive d Time (Source) Location / / Volume Laterality Blood 02/19/2022 8:06 AM 8:09 EDT AM EDT Resulting Agency Comment Spec In Lab Liz BROWN HEMATOLOGY ORDERABLES Performing Organization Address City/State/ZIP [place] [address] (ABNORMAL) Hemogram (02/19/2022 8:06 AM EDT) Analysis Performed At Patho logist Time Signature WBC 7.2 4.0 - 9.5 [facility] x10(3)/[facility] LABORATORY RBC 4.41 (L) 4.58 - [facility] 5.[address] [facility] x10(6)/[facility] LABORATORY Hemoglobin 13.2 (L) 13.7 - [facility] g/dL [facility]ORY Hematocrit 40.9 40.5 - [facility] 48.5 % [facility] LABOR[facility] MCV 92.7 82.9 - [facility] 93.1 [facility] LABORATORY MCH 29.9 27.5 - [facility] 32.1 pg [facility] LABOR[facility]ORY MCHC 32.3 32.0 - [facility] 35.7 g/dL [facility] LABORATORY Platelets 191 145 - 357 [facility] x10(3)/[facility] LABORATORY RDWSD 53.6 (H) 36.0 - [facility] 45.0 [facility] LABORATORY RDWCV 15.6 (H) 11.4 - [facility] 13.8 % [facility] LABORATORY MPV 8.7 7.6 - 12.9 [facility] LABORATORY nRBC % Auto 0.0 % [facility] nRBC Abs Auto 0.000 0.000 - [facility] [address] [facility] x10(3)/[facility] LABORATORY Specimen Anatomical Collection Method Collection Time Receive d Time (Source) Location / / Volume Laterality Blood 02/19/2022 8:06 AM 2 8:09 EDT AM EDT Resulting Agency Comment Spec In Lab Liz BROWN HEMATOLOGY ORDERABLES Performing Organization Address City/[facility]/[place] [address] (ABNORMAL) pro-Brain Natriuretic Peptide (02/19/2022 8:06 AM EDT) P athologist Signature ProBNP 984 (H) <=449 pg/mL [facility]OR[facility] Specimen Anatomical Collection Method Collection Time Receive d Time (Source) Location / / Volume Laterality Blood 02/19/2022 8:06 AM 2 8:09 EDT AM EDT Resulting Agency Comment Spec In Lab Zulma Plunkett MD CHEMISTRY ORDERABLES Performing Organization Address City/State/[place] [address] (ABNORMAL) Basic Metabolic Panel (non-fasting) (02/19/2022 8:06 AM EDT) P athologist Signature Glucose Lvl 139 65 - 199 [facility] mg/dL [facility] LABOR[facility]ORY Comment: Diabetes: >=200 mg/dL plus symp toms BUN 31 (H) 10 - 20 mg/dL [facility] LABORATORY Creatinine 1.53 (H) 0.80 - 1.50 mg/dL [facility] [...] - 107 mmol/L [facility] CO2 31 22 - 31 mmol/L [facility] LABORATORY [...] [place] [address] documented in this encounter Visit Diagnoses Diagnosis Chronic systolic heart failure documented in this encounter Care Teams Nuclear Design Engineer Relationship Specialty Start Date End Date Lovely Vicente MD PCP - General 04/16/[address] [place] [address] documented as of this encounter
--- OUTSIDE RECORDS SUMMARY | 2022-04-13 08:06 | XMS_ITS | Encounter Summary ---
:1945 [place] [address] Care Team Providers Name Role Phone Lovely Vicente MD Primary Care Provider Reason for Visit Reason Onset Date Comments Follow-up 02/26/2022 Entresto start Encounter Details Date Type Department Care Team Description 02/26/2022 Telephone Cardiology at [facility] Martha Comer, Follow-up ([facility] RN start) [place] [address] Social History Tobacco Use Types Packs/Day [...] on 03/05/22 Getting labs done at : [facility] Order e-faxed by STEPHANIE Poole on 02/24/22. /pt to call on 03/05/22 letting us know to get the BMP results from [facility]. Nursing to get results and contact pt to see how he is tolerating the Entresto. They are to call sooner with any questions/concerns. documented in this encounter Plan of Treatment Upcoming Encounters Date Type Specialty Care Team Description 05/28/2022 Appointment Cardiology Zulma Dolan MD [facility] [place], [place] [address] (Wo rk) 05/28/2022 Laboratory Appointment Lab 05/28/2022 Office Visit Cardiology Zulma Dolan MD [facility] [place] [address] Liz Poole PA [facility] [place] [address] 06/10/2022 Office Visit Dermatology Laura Scherer MD [facility] [address] [place], [place] [address] (Wo rk) documented as of this encounter Visit Diagnoses Not on filedocumented in this encounter Care Teams Pipe Racker Relationship Specialty Start Date End Date Lovely Vicenet MD PCP - General 04/16/[address] [place] [address] documented as of this encounter
--- OUTSIDE RECORDS SUMMARY | 2022-04-13 08:06 | XMS_ITS | Encounter Summary ---
:1945 Author Organization [facility] [place] [address] Care Team Providers Name Role Phone Lovely Vicente MD Primary Care Provider Reason for Referral Diagnostic Test (Routine) - New Request Specialty Diagnoses / Procedures Referred By Contact Refer red To Contact Cardiology Diagnoses Chronic systolic heart failure Lzi Carrera PA [facility] Non-Inv Card Lab Procedures Echocardiogram Transthoracic [facility] [place] [address] [place] [address] Fax: Referral ID Status Reason Start Expiration Visits Visits Date Date Requested Authorized [id number] New Request Specialty 02/19/2022 02/19/2023 1 1 Service Requested Encounter Details Date Type Department Care Team Description 02/19/2022 Office Visit Cardiology at [facility] Liz Carrera, Chronic systolic heart [facility] [place] [address] Cardiology Dept [phone] [place], [place] [address] Social History Tobacco Use Types [...] As per DC Summary - Admitted to [facility] on 12/08/21, transferred from [facility], respiratory distress with hypoxia 86% [...] mg PO daily in place of Lasix. [place] is new for him and he will [...] his PCP. He started [facility] in [facility]. Monitored vitals/trends at home: [...] Antiplatelet (DAPT) Recommendations above ? TTE from [facility] 12/08/21 ?? 07/28/2019 Echocardiogram: SUMMARY: [...] regurgitation present. 07/07/2019 - 07/21/2019 Zio Patch Armhole Raiser Lockstitch The patient had a minimum heart rate [...] 12.5 mg daily 6. Post-op atrial fibrillation [id number] (CHF, HTN, DM, vascular disease, thromboembolism) [...] MD [facility] [place], [place] [address] (Wo rk) 05/28/2022 Laboratory Appointment Lab 05/28/2022 Office Visit Cardiology Zulma Dolan MD [facility] [place] [address] Liz Carrera PA [facility] [place] [address] 06/10/2022 Office Visit Dermatology Laura Scherer MD [facility] DR [address] [facility] [place] [place] [address] (Wo rk) Scheduled Orders Name Type Priority Associated Order Schedule Diagnoses Echocardiogram Echocardiography Routine Chronic systolic Expec vlad: Transthoracic heart failure 05/22/2022 (Approximate), Expires: 11/21/2022 documented as of this encounter Results (ABNORMAL) Basic Metabolic Panel (non-fasting) (02/19/2022 8:06 AM EDT) P athologist Signature Glucose Lvl 139 65 - 199 [facility] mg/dL [facility] LABORATORY Comment: Diabetes: >=200 mg/dL plus symp toms BUN 31 (H) 10 - 20 mg/dL [facility] LABORATORY Creatinine 1.53 (H) 0.80 - 1.50 mg/dL [facility] LABORATORY Sodium 142 135 - 145 mmol/L [facility] LABORATORY Potassium 5.4 (H) 3.5 - 5.0 mmol/L [facility] [...] LABORATORY Calcium 9.7 8.5 - 10.5 mg/dL [facility] [...] City/State/ZIP Code Phon e Number [place] [phone] H[address] LAB[address]ORY [address] (ABNORMAL) pro-Brain Natriuretic Peptide (02/19/2022 8:06 AM EDT) P athologist Signature ProBNP 984 (H) <=449 pg/mL [facility] LABORATORY Specimen Anatomical Collection Method Collection Time Receive d Time (Source) Location / / Volume Laterality Blood 02/19/2022 8:06 AM 8:09 EDT AM EDT Resulting Agency Comment Spec In Lab Zulma Plunkett MD CHEMISTRY ORDERABLES Performing Organization Address City/[facility]/ZIP [place] [address] documented in this encounter Visit Diagnoses Diagnosis Chronic systolic heart failure documented in this encounter Care Teams Program Research Specialist Relationship Specialty Start Date End Date Lovely Vicente MD PCP - General 04/16/[address] [place] [address] documented as of this encounter
--- OUTSIDE RECORDS SUMMARY | 2022-04-13 08:06 | XMS_ITS | Encounter Summary ---
:1945 Author Organization [facility] [place] [address] Care Team Providers Name Role Phone Lovely Vicente MD Primary Care Provider Encounter Details Date Type Department Care Team Description 02/24/2022 Orders Only Cardiology at [facility] Liz Poole, Chronic systolic heart [facility] [place] [address] Cardiology Dept [place], [place] [address] Social History Tobacco Use Types [...] MD [facility] [place] [address] [place], [place] [address] (Wo rk) 05/28/2022 Laboratory Appointment Lab 05/28/2022 Office Visit Cardiology Zulma Dolan MD [facility] [place] [address] Liz Poole PA [facility] [place] [address] 06/10/2022 Office Visit Dermatology Laura Scherer MD [facility] ER DR [address] [place], [place] [address] (Wo rk) documented as of this encounter Visit Diagnoses Diagnosis Chronic systolic heart failure documented in this encounter Care Teams Clinical Laboratory Medical Director Relationship Specialty Start Date End Date Loevly Vicente MD PCP - General 04/16/[address] [place] [address] documented as of this encounter
--- OUTSIDE RECORDS SUMMARY | 2022-04-13 08:06 | XMS_ITS | Encounter Summary ---
:1945 Author Organization [facility] [place] [address] Care Team Providers Name Role Phone Lovely Vicente MD Primary Care Provider Reason for Visit Reason Onset Date Comments Medication Refill 03/11/2022 Encounter Details Date Type Department Care Team Description 03/06/2022 Refill Cardiology at [facility] Liz Poole PA Medication Refill [facility] Jorge mcnamara [facility] [place] [address] Cardiology Dept [phone] [place], [place] 0[address] (Wo rk) Social History Tobacco [...] MD [facility] er [place], [place] [address] (Wo rk) 05/28/2022 Laboratory Appointment Lab 05/28/2022 Office Visit Cardiology Zulma Dolan MD [facility] [place] [address] Liz Poole PA [facility] [place] [address] 06/10/2022 Office Visit Dermatology Laura Scherer MD [facility] ER DR [address] [place], [place] 0[address] (Wo rk) documented as of this encounter Visit Diagnoses Not on filedocumented in this encounter Care Teams Emergency Response Technician Relationship Specialty Start Date End Date Lovely Vicente MD PCP - General 04/16/[address] [place] [address] documented as of this encounter
--- OUTSIDE RECORDS SUMMARY | 2022-04-13 08:06 | XMS_ITS | Encounter Summary ---
:1945 Author Organization [facility] [place] [address] Care Team Providers Name Role Phone Lovely Vicente MD Primary Care Provider Encounter Details Date Type Department Care Team Description 03/26/2022 Office Visit Cardiology at [facility] Vitaliy Nobles MD Chronic systolic heart failure; [facility] ONE MEDICAL ASCVD (ar teriosclerotic cardiovascular disease); [facility] Cardiomyopathy, ischemic [place], [place] CARDIOLOGY [address] [place] [address] [phone] Social History Tobacco Use Types Packs/Day Years [...] original note were not included. [facility] [place] [address] CARDIOLOGY OUTPATIENT CLINIC VISIT [facility] Don Mccollum Kushal 03/26/2022 Referring Providers: MD Jules Cr Joyce, MD [address] [place] [address] CHIEF COMPLAINT: I am doing well CARDIAC-RELEVANT [...] using a 2.0 x 26 mm ORION Arcadia TUCKER stent. This completes therevascularization of all [...] in [address] Lovely Vicente MD [address] [place] [address] HISTORY OF PRESENT ILLNESS: Don Fatima is [...] using a 2.0 x 26 mm ORION Arcadia TUCKER stent. This completes the revascularization of [...] [facility] MAIN OR ??? PRO AMPUTATION FOOT, TRANSMETATARSAL Right 08/09/2017 AMPUTATION, TRANSMETATARSAL (WRVU 12.71) performed by Yonathan Smith MD at [facility] OR ??? [...] at [facility] ENDOSCOPY ??? PRO DRESSING CHANGE UNDER ANESTHESIA Right 08/11/2017 (MSURG) DRESSING CHANGE (FOR OTHER THAN IVAN) UNDER ANES. (WRVU 0.86) performed by Lamar Smith MD at [facility] MAIN OR ??? PRO ENDOSCOPY W/VIDEO-ASST VEIN HARVEST, CABG Right 07/07/2017 ENDOSCOPIC HARVEST VEIN(S) FOR CABG (WRVU 0.31) performed by Yuan Retana MD at [facility] MAIN OR ??? PRO PERC TRLUML CORONARY STENT W/ANGIO ONE ART/BRANCH N/A 01/30/2022 STENT PLACEMENT-SINGLE MAJOR CORONARY ARTERY OR BRANCH performed by Vitaliy Nobles MD at [facility] CATH LABS ??? PRO THYROIDECTOMY 03/28/2013 THYROIDECTOMY, TOTAL OR COMPLETE performed by Manny Mcknight MD at [facility] MAIN OR SOCIAL HISTORY: reports that he [...] using a 2.0 x 26 mm ORION Arcadia TUCKER stent. This completes the revascularization of [...] Sincerely, Dr. Vitaliy Nobles MD [employer] Employment Attorney Interventional Cardiology 03/26/2022 CC: Lovely Vicente MD [...] As per DC Summary - Admitted to [facility] on 12/08/21, transferred from [facility] [...] regurgitation present. 07/07/2019 - 07/21/2019 [employer] Rater The patient had a minimum heart rate [...] 12.5 mg daily 6. Post-op atrial fibrillation [id number] (CHF, HTN, DM, vascular disease, thromboembolism) Eliquis 7. PAD 08/06/2017: Right 1st, 2nd, 3rd toe amputation 08/11/2017: Left??femoral arterial access, RLE??angiogram, Balloon angioplasty of R PT 10/25/2017: right popliteal-pedal bypass at [facility] 8. Hypothyrodism S/p thyroidectomy for goiter Levothyroxine ?? Plan: 3 months in clinic with labs and TTE Liz Poole PA-C 03/26/2022 documented in this encounter Plan of Treatment Upcoming Encounters Date Type Specialty Care Team Description 05/28/2022 Appointment Cardiology Zulma Dolan MD [facility] [address] 0[address] (Wo rk) 05/28/2022 Laboratory Appointment Lab 05/28/2022 Office Visit Cardiology Zulma Dolan MD [facility] [place] [address] Liz Poole PA [facility] [place] [address] 06/10/2022 Office Visit Dermatology Laura Scherer MD [facility] DR [address] [place], [place] [address] (Wo rk) documented as of this encounter Visit Diagnoses Diagnosis Chronic systolic heart failure ASCVD (arteriosclerotic cardiovascular d isease) Unspecified cardiovascular disease Cardiomyopathy, ischemic Other specified forms of chronic ischemi c heart disease documented in this encounter Care Teams Keycase Assembler Relationship Specialty Start Date End Date Lovely Vicente MD PCP - General 04/16/[address] [place] [address] documented as of this encounter
--- OUTSIDE RECORDS SUMMARY | 2022-04-13 08:06 | XMS_ITS | Encounter Summary ---
:1945 Author Organization [facility] [place] [address] Care Team Providers Name Role Phone Lovely [...] OR [facility] [place] [address] Referral ID Status Reason Start Date Expiration Date Visits Requ ested Visits Authorized [id number] 1 1 Encounter Details Date Type Department Care Team Description 01/30/2022 Laboratory Lab 3L Katalina ASCVD (arterios clerotic Appointment [facility] cardiovas cular disease) [place] [address] Social History Tobacco Use Types Packs/Day Years [...] Zulma Dolan MD [facility] [place], [place] 0[address] (Wo rk) 05/28/2022 Laboratory Appointment Lab 05/28/2022 Office Visit Cardiology Zulma Dolan MD [facility] [place] [address] Liz Poole PA [facility] [place] [address] 06/10/2022 Office Visit Dermatology Laura Scherer MD [facility] DR [address] [place], [place] [address] (Wo rk) documented as [...] (ABNORMAL) Differential, Automated (01/30/2022 7:19 AM EDT) [facility] gist Method Time Signature Neutrophils % 77.9 % [facility] LABORATORY Neutr Abs (ANC) 5.31 1.70 - [facility] 6.10 [facility] x10(3)/[facility] LABORATORY Lymphocytes % 12.0 % [facility] LABORATORY Lymphocytes Abs 0.8 (L) 0.9 - 3.2 [facility] x10(3)/[facility] LABORATORY Monocytes % 8.1 % [facility] LABORATORY Monocyte Abs 0.6 0.3 - 0.9 [facility] x10(3)/[facility] LABORATORY Eosinophils % 0.4 % [facility] LABORATORY Eosinophils Abs 0.0 0.0 - 0.4 [facility] x10(3)/[facility] LABORATORY Basophils % 0.6 % [facility] LABORATORY Basophils Abs 0.0 0.0 - 0.1 [facility] x10(3)/[facility] LABORATORY Immature Gran % 1.00 % [facility] LABORATORY Comment: Immature granulocytes(IG's)percentage an d absolute count will include metamyelocytes, myelocytes, and promyelo cytes. Blood smears from CBCs yielding IG's will be scanned manually for concor dance. If this scan disagrees with the automated IG or if promyelocytes are not ed, a manual differential will be performed. Emlisa Gran Abs 0.07 (H) 0.00 - 0.04 x10(3)/[facility] LABORATORY Specimen Anatomical Collection Method Collection Time Receive d Time (Source) Location / / Volume Laterality Blood 01/30/2022 7:19 AM 7:21 EDT AM EDT Resulting Agency Comment Spec In Lab Zulma BROWN HEMATOLOGY ORDERABLES Performing Organization Address City/State/[place] [address] (ABNORMAL) Hemogram (01/30/2022 7:19 AM EDT) Analysis Performed At Patho logist Time Signature WBC 6.8 4.0 - 9.5 [facility] x10(3)/[facility] LABORATORY RBC 4.32 (L) 4.58 - [facility] 5.54 [facility] x10(6)/[facility] LABORATORY Hemoglobin 13.0 (L) 13.7 [facility] 16.5 g/dL [facility] LABORATORY Hematocrit 39.8 (L) 40.5 - [facility] 48.5 % [facility] LABORATORY MCV 92.1 82.9 [facility] 93.1 fL [facility] LABORATORY MCH 30.1 27.5 - [facility] 32.1 pg [facility] LABORATORY MCHC 32.7 32.0 - [place] [facility] 35.7 g/dL [facility] LABORATORY Platelets 172 145 - 357 [facility] x10(3)/[facility] LABORATORY RDWSD 54.5 (H) 36.0 - [place] [facility] 45.0 [facility] LABORATORY RDWCV 16.2 (H) 11.4 - [facility] 13.8 % [facility] LABORATORY MPV 9.0 7.6 - 12.9 [facility] LABORATORY nRBC % Auto 0.0 % [facility] LABORATORY nRBC Abs Auto 0.000 0.000 - [facility] 0.000 [facility] x10(3)/[facility] LABORATORY Specimen Anatomical Collection Method Collection Time Receive d Time (Source) Location / / Volume Laterality Blood 01/30/2022 7:19 AM 7:21 EDT AM EDT Resulting Agency Comment Spec In Lab Zulma BROWN HEMATOLOGY ORDERABLES Performing Organization Address City/State/[place] [address] (ABNORMAL) Basic Metabolic Panel (non-fasting) (01/30/2022 7:19 AM EDT) P athologist Signature Glucose Lvl 237 (H) 65 - 199 [facility] mg/dL [facility] LABORATORY Comment: Diabetes: >=200 mg/dL plus symp toms BUN 34 (H) 10 - 20 mg/dL [facility] LABORATORY Creatinine 1.45 0.80 - [...] 15 mmol/L [facility] LABORATORY Calcium 9.5 8.5 - [...] City/State/ZIP Code Phon e Number [place] [phone] documented in this encounter Visit Diagnoses Diagnosis ASCVD (arteriosclerotic cardiovascular d isease) Unspecified cardiovascular disease documented in this encounter Care Teams Flatlock Sewing Machine Operator Relationship Specialty Start Date End Date Lovely Vicente MD PCP - General 04/16/[address] [place] [address] documented as of this encounter
--- OUTSIDE RECORDS SUMMARY | 2022-04-13 08:06 | XMS_ITS | Encounter Summary ---
:1945 Author Organization [facility] Address [facility] [address] [place] [address] Care Team Providers Name Role Phone Lovely Vicente MD Primary Care Provider Reason for Visit Reason Onset Date Comments Medication Refill 04/09/2022 Jardiance Encounter Details Date Type Department Care Team Description 04/09/2022 Refill Cardiology at [facility] Liz Poole PA Medication Refill [facility] (Ja rdiance) [place] [address] Cardiology Dept [phone] [place], [place] 0[address] (Wo rk) Social History Tobacco [...] MD [facility] er Dr [place] 0[address] (Wo rk) 05/28/2022 Laboratory Appointment Lab 05/28/2022 Office Visit Cardiology Zulma Dolan MD [facility] [place] [address] Liz Poole PA [facility] [place] [address] 06/10/2022 Office Visit Dermatology Laura Scherer MD [facility] ER DR [address] [place], [place] [address] (Wo rk) documented as of this encounter Visit Diagnoses Diagnosis Chronic systolic heart failure documented in this encounter Care Teams Wood Barrel Reconditioner Relationship Specialty Start Date End Date Lovely Vicente MD PCP - General 04/16/[address] [place] [address] documented as of this encounter
--- OUTSIDE RECORDS SUMMARY | 2022-04-13 08:06 | XMS_ITS | Clinical Summary ---
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; [...] Dolan MD [facility] er Dr [place] 0[address] (Wo rk) 05/28/2022 Laboratory Appointment Lab 05/28/2022 Office Visit Cardiology Zulma Dolan MD [facility] [address] [address] Liz Poole PA [facility] [place] [address] 06/10/2022 Office Visit Dermatology Laura Scherer MD [facility] ER DR [address]JA [address] [place], [place] 037 (Wo rk) Health Maintenance Due Date Last Done Comments Covid-19 Vaccine (#1) 1950 Pneumoccocal Vaccine: 65+ (1 - PCV) 1952 Hepatitis C Screening 1964 Tdap adult 1965 Tetanus vaccine 1965 Zoster vaccine (1 of 2) 1996 Colonoscopy 01/16/2019 01/16/2014, 01/16/2014 Influenza (Flu) vaccine (1 of - 03/26/2022 03/29/2013, Influenza standard series) Medical Devices Implanted Type Area High Frequency Mill Operator Device Shelf Model / Identifier Expiration Serial / Date Lot Cable,Cut,Edg,Blnt,Ss,3tpr ([id number]) - [id number] IMPLANTS Midline: [employer] 04/01/2022 [id number] / Implanted: Qty: 4 on 07/07/2017 by Yuan Retana MD at [facility] [employer] - / [id number] Procedures Procedure Name Priority Date/Time Associated Diagnosis [...] Time Signature WBC 7.2 4.0 - 9.5 [facility] x10(3)/[facility] LABORATORY RBC 4.41 (L) 4.58 - [facility] R[facility] 5.54 [facility] x10(6)/[facility] LABORATORY Hemoglobin 13.2 (L) 13.7 - [place] [facility] 16.5 g/dL [facility] LABORATORY Hematocrit 40.9 40.5 - [place] 48.5 % [facility] LABORATORY MCV 92.7 82.9 - [facility] 93.1 [facility] LABORATORY MCH 29.9 27.5 - [place] [facility] 32.1 pg [facility] LABORATORY MCHC 32.3 32.0 - [place] [facility] 35.7 g/dL [facility] LABORATORY Platelets 191 145 - 357 [facility] x10(3)/[facility] LABORATORY RDWSD 53.6 (H) 36.0 - [place] [facility] 45.0 [facility] LABORATORY RDWCV 15.6 (H) 11.4 - [place] [facility] 13.8 % [facility] LABORATORY MPV 8.7 7.6 - 12.9 [facility] LABORATORY nRBC % Auto 0.0 % [facility] LABORATORY nRBC Abs Auto 0.000 0.000 - [facility] 0.000 [facility] x10(3)/[facility] LABORATORY Specimen Anatomical Collection Method Collection Time Receive d Time (Source) Location / / Volume Laterality Blood 02/19/2022 8:06 AM 8:09 EDT AM EDT Resulting Agency Comment Spec In Lab Liz BROWN HEMATOLOGY ORDERABLES Performing Organization Address City/State/[place] [address] (ABNORMAL) Differential, Automated (02/19/2022 8:06 AM EDT)Only the most recent of3 resultswithin the time period is included. [facility] Method Time Signature Neutrophils % 76.0 % [facility] LABORATORY Neutr Abs (ANC) 5.49 1.70 - [facility] 6.10 [facility] x10(3)/[facility] LABORATORY Lymphocytes % 10.8 % [facility] LABORATORY Lymphocytes Abs 0.8 (L) 0.9 - 3.2 [facility] x10(3)/[facility] LABORATORY Monocytes % 10.2 % [facility] LABORATORY Monocyte Abs 0.7 0.3 - 0.9 [facility] x10(3)/[facility] LABORATORY Eosinophils % 1.2 % [facility] LABORATORY Eosinophils Abs 0.1 0.0 - 0.4 [facility] x10(3)/[facility] LABORATORY Basophils % 0.8 % [facility] LABORATORY Basophils Abs 0.1 0.0 - 0.1 [facility] x10(3)/[facility] LABORATORY Immature Gran % 1.00 % [facility] [...] Liz BROWN HEMATOLOGY ORDERABLES Performing Organization Address City/[facility]/[place] [address] (ABNORMAL) pro-Brain Natriuretic Peptide (02/19/2022 8:06 AM EDT) P athologist Signature ProBNP 984 (H) <=449 pg/mL [facility] LABORATORY Specimen Anatomical Collection Method Collection Time Receive d Time (Source) Location / / Volume Laterality Blood 02/19/2022 8:06 AM 2 8:09 EDT AM EDT Resulting Agency Comment Spec In Lab Zulma Plunkett MD CHEMISTRY ORDERABLES Performing Organization Address City/[facility]/[place] [address] POCT Glucose (01/30/2022 1:41 PM EDT)Only the most recent of4 resultswithin the time period is included. P athologist Signature POC Glucose 148 65 - 199 [facility] mg/dL [facility] LABORATORY Comment: Supplemental ranges: <140 mg/dL before meals <180 mg/dL all other times of the day Specimen Anatomical Collection Method Collection Time Receive d Time (Source) Location / / Volume Laterality Blood 01/30/2022 1:41 PM 2 1:41 EDT PM EDT Vitaliy Nobles MD POINT OF CARE TEST ORDERABLE S Performing Organization Address City/[facility]/ZIP Code Phon e Number [address] EKG 12 Lead (01/30/2022 10:33 AM EDT) Component Value Ref Range Test Analysis Performed Pathologis t Method Time At Signature Ventricular rate 64 BPM MUSE SYSTEM Atrial Rate 64 BPM MUSE SYSTEM P-R Interval 162 ms MUSE SYSTEM QRS Duration 94 ms MUSE SYSTEM Q-T Interval 422 ms MUSE SYSTEM QTC Calculated 435 ms MUSE SYSTEM (Bezet) Calculated P [place] 41 degrees MUSE SYSTEM Calculated R [place] -27 degrees MUSE SYSTEM Calculated T [place] 104 degrees MUSE SYSTEM INTERPRETATION Normal sinus rhythm MUSE SYSTEM Anterolateral infarct (cited on or before 09-DEC-2021) Abnormal ECG When compared with ECG of 10-DEC-2021 11:17, No significant change was found Confirmed by Gary Perez ([id number]) on 01/30/2022 5:57:5 2 PM Specimen Anatomical [...] Volume Narrative 01/30/2022 2:09 PM EDT ?[facility] ? Cardiac Cathete rization/Intervention Report ? Patient Name: Génesis Fatimarory Mccollum. ? Procedure Date: 01/30/2022 ? A #: [id number] ? Primary Physician: Nobles, Vitaliy P ? Case #: [id number] ? File Name: [id number] ? Catheterization Order Number: [id number] ? [facility] ? Final Report [place], [place] ? Patient Name: ? Don E. Stewa rt ? ID#: ?[id number] ? : ?1945 ? Procedure Date: ? January 30, 2022 ? Case #: ? [id number] ? Room: ? 1 ? Case Physician: ? Vitaliy P Nobels, M. D. ?Start: ?08:54 ?Fellow: ? Eddi [...] patient was ?designated as ASA Class III. [facility] clinical frailty scale is 5: Mildly [...] procedure was Urgent. The indication for ?the incinerator plant laborer visit is stable kn own CAD. [...] guiding catheter an d a 3.5 Fr [facility] [address] ??20 Mhz ?using [...] A premounted 2.00 x 26 mm Hardeep Grant (TUCKER) ? was deployed wi th a [...] Wedelivered along 2.0 x 26 mm HARDEEP Grant ? TUCKER stent and p ositioned it [...] dose administered prior to arrival in the incinerator plant laborer. ?Recommended anti-platelet/anti- thrombotic regimen: ?Continue aspirin [...] using a 2.0 x 26 mm HARDEEP Grant TUCKER stent. ?This completes the revasculariz ation [...] Note Vitaliy Nobles MD - 03/06/2022 [facility] Cardiac Catheterization/Intervention Re port Patient Name: Don Fatima Procedure Date: 01/30/2022 A #: [id number] Primary Physician: Vitaliy Nobles Case #: [id number] File Name: [id number] Catheterization Order Number: [id number] [facility] Final Report [place], [place] Patient Name: Don Fatima ID#: [...] e was Urgent. The indication for the incinerator plant laborer visit is stable known CAD. Chest pain symptom assessment was: Typical Angina. Technique: A 6 SLFr sheath was inserted in the [facility] radial artery utilizing the Seldinger technique. [...] 1.5 guiding catheter and a 3.5 Fr [facility] [address] 20 Mhz using Manual pullback. Imaging [...] A premounted 2.00 x 26 mm Hardeep Grant (TUCKER) was deployed with a maximum inflation [...] along 2. 0 x 26 mm HARDEEP Grant TUCKER stent and positioned it at the [...] administered prior t o arrival in the incinerator plant laborer. Recommended anti-platelet/anti-thrombot ic regimen: Continue aspirin [...] using a 2.0 x 26 mm HARDEEP Grant TUCKER stent. This completes the revascularization of [...] T ype Group Dates MEDICARE MEDICARE PART [id number] 2011-Prese [phone] [place] [phone] [employer] [place] V[place] [id number] 2018-Prese [phone] [address] [place] [address] [place] [address] Advance Directives Documents on File Type Date Recorded Patient Materials Assistant Explanati on Advance Directives and Living 03/28/2013 [...] capacity to make decision: Yes Care Teams Ribbing Machine Operator Relationship Specialty Start Date End Date Lovely Vicente MD PCP - General 04/16/[address] [place] [address]
--- OUTSIDE RECORDS SUMMARY | 2022-04-13 08:06 | XMS_ITS | Encounter Summary ---
:1945 Author Organization [facility] [place] [address] Care Team Providers Name Role Phone Lovely Vicente MD Primary Care Provider Reason for Visit Reason Comments Medication Refill Encounter Details Date Type Department Care Team Description 04/07/2022 Refill Cardiology at [facility] Janneth Padilla PA Medication Refill [facility] [place] [address] CARDIOLOGY DEPT. [phone] [place], [place] [address] (Wo rk) Social History Tobacco [...] Appointment Cardiology Zulma Dolan MD [facility] er [address] [place], [place] [address] (Wo rk) 05/28/2022 Laboratory Appointment Lab 05/28/2022 Office Visit Cardiology Zulma Dolan MD [facility] [place] [address] Liz Poole PA [facility] [place] [address] 06/10/2022 Office Visit Dermatology Laura Scherer MD [facility] DR [address] [place], [place] [address] (Wo rk) documented as of this encounter Visit Diagnoses Not on filedocumented in this encounter Care Teams Support Technician Relationship Specialty Start Date End Date Lovely Vicente MD PCP - General 04/16/[address] [place] [address] [address] [place] [address] documented as of this encounter
--- OUTSIDE RECORDS SUMMARY | 2022-04-13 08:06 | XMS_ITS | Encounter Summary ---
:1945 Author Organization [facility] [place] [address] Care Team Providers Name Role Phone Lovely Vicente MD Primary Care Provider Reason for Visit Reason Onset Date Comments Follow-up 02/23/2022 Medication adjustmen t and new med Encounter Details Date Type Department Care Team Description 02/23/2022 Telephone Cardiology at [facility] Martha Comer, Follow-up ([facility] RN adjustbrandon t and new med) [place] [address] Social History Tobacco Use Types Packs/Day [...] the order for BMP and sent to [facility]. will call [facility] to make an appointment for next [...] tablet) daily. She will correct his pill life care planner to the new dose. Will need to check with STEPHANIE Poole about repeat BMP to recheck K+ level. If yes he will get the test done at [facility]. They are aware that he will need to make an appt at [facility] to get the test done. Entresto: [...] if he qualifies for assistance from the [employer]. She is thankful for the assistance, as he is taking insulin that is very expensive too. Instructed to call this ticket writer, if he does qualify for assistance from [employer] and that he has gotten the medication [...] Dolan MD [facility] [place], [place] [address] (Wo rk) 05/28/2022 Laboratory Appointment Lab 05/28/2022 Office Visit Cardiology Zulma Dolan MD [facility] [place] [address] Liz Poole PA [facility] [place] [address] 06/10/2022 Office Visit Dermatology Laura Scherer MD [facility] [address] [place], [place] [address] (Wo rk) documented as of this encounter Visit Diagnoses Not on filedocumented in this encounter Care Teams Combiner Operator Relationship Specialty Start Date End Date Lovely Vicente MD PCP - General 04/16/[address] [place] [address] documented as of this encounter
--- OUTSIDE RECORDS SUMMARY | 2022-04-13 08:06 | XMS_ITS | Encounter Summary ---
:1945 Author Organization [facility] Address [facility] [place] [address] Care Team Providers Name Role Phone Lovely Vicente MD Primary Care Provider Reason for Visit Reason Onset Date Comments Medication Refill 03/06/2022 Metoprolol Succinate Encounter Details Date Type Department Care Team Description 03/06/2022 Refill Cardiology at [facility] Liz Poole PA Medication Refill [facility] (Ct toprolol Succinate) [place] [address] Cardiology Dept [phone] [place], [place] [address] (Wo rk) Social History Tobacco [...] Dolan MD [facility] er [place], [place] [address] (Wo rk) 05/28/2022 Laboratory Appointment Lab 05/28/2022 Office Visit Cardiology Zulma Dolan MD [facility] [place] [address] Liz Poole PA [facility] [place] [address] 06/10/2022 Office Visit Dermatology Laura Scherer MD [facility] ER DR [address] [place], [place] [address] (Wo rk) documented as of this encounter Visit Diagnoses Diagnosis Chronic systolic heart failure Cardiomyopathy, ischemic Other specified forms of chronic ischemi c heart disease documented in this encounter Care Teams Business Partner Relationship Specialty Start Date End Date Lovely Vicente MD PCP - General 04/16/[address] [place] [address] documented as of this encounter
--- OUTSIDE RECORDS SUMMARY | 2022-04-13 08:06 | XMS_ITS | Encounter Summary ---
:1945 Author Organization [facility] [place] [address] Care Team Providers Name Role Phone Lovely Vicente MD Primary Care Provider Encounter Details Date Type Department Care Team Description 02/24/2022 Notes Only [place] [address] Social History Tobacco Use Types Packs/Day [...] Dolan MD [facility] [address] [place], [place] [address] (Wo rk) 05/28/2022 Laboratory Appointment Lab 05/28/2022 Office Visit Cardiology Zulma Dolan MD [facility] [place] [address] Liz Poole PA [facility] [place] [address] 06/10/2022 Office Visit Dermatology Laura Scherer MD [facility] ER DR [address] [place], [place] [address] (Wo rk) documented as of this encounter Visit Diagnoses Not on filedocumented in this encounter Care Teams Construction Accountant Relationship Specialty Start Date End Date Lovely Vicente MD PCP - General 04/16/[address] [place] [address] documented as of this encounter
--- OUTSIDE RECORDS SUMMARY | 2022-04-13 08:06 | XMS_ITS | Encounter Summary ---
:1945 Author Organization [facility] Address [facility] [place] [address] Care Team Providers Name Role Phone Lovely Vicente MD Primary Care Provider Reason for Visit Auth/Cert Specialty Diagnoses / Procedures Referred By Contact Refer red To Contact Diagnoses ASCVD (arteriosclerotic cardiovascular disease) [I25.10] Vitaliy Nobles MD [facility] Procedures PRO PERC TRLUML CORONARY STENT W/ANGIO ONE ART/BRANCH CARDIAC CATHETERIZATION STENT PLACEMENT-SINGLE MAJOR CORONARY ARTERY OR BRANCH [facility] [place] [address] Referral ID Status Reason Start Date Expiration Date Visits Requ ested Visits Authorized [id number] 1 1 Encounter Details Date Type Department Care Team Description 01/30/2022 Surgery Automobile Detailer Asa Coulter MD CARDIAC CATHETERIZATION [facility] [place] [address] [place] [address] [phone] (Wo rk) Social History Tobacco Use Types [...] and Clopidogrel. Please follow up with your costumer assistant in the next 4-6 weeks. We have made a referral to cardiac rehab. Please see the attached instructions regarding care to your right wrist access site. AttachmentsThe following attachments cannot be sent through Care Everywhere. Coronary Angiogram: Post-op (Cameroonian)documented in this encounter Medications at Time of [...] J, RN - 01/30/2022 4:54 PM EDT [facility] Short Stay Unit Discharge Note [...] recent PCI presenting for staged PCI to [facility] The pt states he has been ok. [...] recent PCI presenting for staged PCI to [facility]. The indications, expected benefits, and potential risks [...] had referred him to cardiac rehab at [facility] last month per HF team. He was waiting until this intervention before starting the program. Reviewed managing angina /use of sl nitroglycerin. Given parameters for home exercise. 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 We discussed short walks several times per day. Will send [facility] his discharge summary from this admission. The patient should be contacted by the Program within 1- 2 weeks from discharge. Brief Op Note - Vitaliy Nobles MD - 01/30/2022 10:19 AM EDT Images from the original note were not included. [facility] [place] [address] CORONARY ANGIOGRAM AND PERCUTANEOUS CORONARY INTERVENTION REPORT Patient: Don Fatima : 1945 MR number: [id number] Date of Service: 01/30/2022 Athletic Instructor: Vitaliy Nobles MD Fellow: KEYON Elizabeth [...] a long 2.0 x 26 mm HARDEEP Labelle TUCKER stent and positioned it at the [...] using a 2.0 x 26 mm HARDEEP Labelle TUCKER stent. This completes the revascularization ofall [...] [facility] er [address] [place] [address] (Wo rk) 05/28/2022 Laboratory Appointment Lab 05/28/2022 Office Visit Zulma Garrison MD [facility] [address] [facility] [place] [address] 06/10/2022 Office Visit Dermatology Laura Scherer MD [facility] ER DR [address]MAT [facility] [place] [address] (Wo rk) Scheduled Orders Name Type [...] Abs (ANC) 3.96 1.70 - [facility] 6.10 [facility] x10(3)/[facility] LABORATORY Lymphocytes % 16.3 % [facility] LABORATORY Lymphocytes Abs 0.9 0.9 - 3.2 [facility] x10(3)/[facility] LABORATORY Monocytes % 10.0 % [facility] LABORATORY Monocyte Abs 0.6 0.3 - 0.9 [facility] x10(3)/[facility] LABORATORY Eosinophils % 0.5 % [facility] LABORATORY Eosinophils Abs 0.0 0.0 - 0.4 [facility] x10(3)/[facility] LABORATORY Basophils % 0.5 % [facility] LABORATORY Basophils Abs 0.0 0.0 - 0.1 [facility] x10(3)/[facility] LABORATORY Immature Gran % 0.90 % [place] [...] Gran Abs 0.05 (H) 0.00 - 0.04 x10(3)/[facility] LABORATORY Specimen Anatomical Collection Method Collection Time Receive d Time (Source) Location / / Volume Laterality Blood 01/30/2022 2:12 PM 2 2:37 EDT PM EDT Resulting Agency Comment Spec In Lab Eddi Elizabeth Jr., MD HEMATOLOGY ORDERABLES Performing Organization Address City/State/Z[place] [address] (ABNORMAL) Hemogram (01/30/2022 2:12 PM EDT) Analysis Performed At Patho logist Time Signature WBC 5.5 4.0 - 9.5 [facility] x10(3)/[facility] LABORATORY RBC 4.30 (L) 4.58 - [facility] 5.54 [facility] x10(6)/[facility] LABORATORY Hemoglobin 12.7 (L) 13.7 - [place] 16.5 g/dL [facility] LABORATORY Hematocrit 39.4 (L) 40.5 - [place] 48.5 % [facility] LABORATORY MCV 91.6 82.9 - [place] 93.1 [facility] LABORATORY MCH 29.5 27.5 - [place] 32.1 pg [facility] LABORATORY MCHC 32.2 32.0 - [place] 35.7 g/dL [facility] LABORATORY Platelets 172 145 - 357 [facility] x10(3)/[facility] LABORATORY RDWSD 54.5 (H) 36.0 - [place] 45.0 [facility] LABORATORY RDWCV 16.4 (H) 11.4 - [place] 13.8 % [facility] LABORATORY MPV 9.2 7.6 - 12.9 [place] [facility] LABORATORY nRBC % Auto 0.0 % [facility] LABORATORY nRBC Abs Auto 0.000 0.000 - [place] 0.000 [facility] x10(3)/[facility] LABORATORY Specimen Anatomical Collection Method Collection Time Receive d Time (Source) Location / / Volume Laterality Blood 01/30/2022 2:12 PM 2 2:37 EDT PM EDT Resulting Agency Comment Spec In Lab Eddi Elizabeth Jr., MD HEMATOLOGY ORDERABLES Performing Organization Address City/State/Z[place] [address] (ABNORMAL) Basic Metabolic Panel (non-fasting) (01/30/2022 2:12 PM EDT) athologist Signature Glucose Lvl 163 65 - 199 [facility] LABORATORY Comment: Diabetes: >=200 mg/dL plus symp toms BUN 30 (H) 10 - 20 mg/dL [facility] LABORATORY Creatinine 1.47 0.80 - 1.50 [...] Address City/State/[place] [address] POCT Glucose (01/30/2022 1:41 PM EDT) athologist Signature POC Glucose 148 65 - 199 [facility] mg/dL [facility] LABORATORY Comment: Supplemental ranges: <140 mg/dL before meals <180 mg/dL all other times of the day Specimen Anatomical Collection Method Collection Time Receive d Time (Source) Location / / Volume Laterality Blood 01/30/2022 1:41 PM 2 1:41 EDT PM EDT Vitaliy Nobles MD POINT OF CARE TEST ORDERABLE S Performing Organization Address City/[facility]/ZIP Code Phon e Number [address] POCT Glucose (01/30/2022 10:48 AM EDT) P athologist Signature POC Glucose 193 65 - 199 [facility] LABORATORY Comment: Supplemental ranges: <140 mg/dL before meals <180 mg/dL all other times of the day Specimen Anatomical Collection Method Collection Time Receive d Time (Source) Location / / Volume Laterality Blood 01/30/2022 10:48 01/30/2022 AM EDT 10:48 AM EDT Vitaliy Nobles MD POINT OF CARE TEST ORDERABLE S Performing Organization Address [facility] [place] [address] EKG 12 Lead (01/30/2022 10:33 AM EDT) Component Value Ref Range Test Analysis Performed Pathologis t Method Time At Signature Ventricular rate 64 BPM MUSE SYSTEM Atrial Rate 64 BPM MUSE SYSTEM P-R Interval 162 ms MUSE SYSTEM QRS Duration 94 ms MUSE SYSTEM Q-T Interval 422 ms MUSE SYSTEM QTC Calculated 435 ms MUSE SYSTEM (Bezet) Calculated P [place] 41 degrees MUSE SYSTEM Calculated R [place] -27 degrees MUSE SYSTEM Calculated T [place] 104 degrees MUSE SYSTEM INTERPRETATION Normal sinus rhythm MUSE SYSTEM Anterolateral infarct (cited on or before 09-DEC-2021) Abnormal ECG When compared with ECG of 10-DEC-2021 11:17, No significant change was found Confirmed by Gary Perez ([id number]) on 01/30/2022 5:57:5 2 PM Specimen Anatomical Collection Method Collection Time Receive d Time (Source) Location / / Volume Laterality 01/30/2022 10:33 01/30/2022 5:57 AM EDT PM EDT Vitaliy Nobles MD ECG ORDERABLES Performing Organization Address City/[facility]/ZIP Code Phon e Number MUSE SYSTEM CARDIAC CATHETERIZATION (01/30/2022 10:16 AM EDT) Anatomical Region Laterality Modality Other Specimen (Source) Anatomical Location Collection Method / Collectio n Time Received Time / Laterality Volume Narrative 01/30/2022 2:09 PM EDT ?[facility] ? Cardiac Cathete rization/Intervention Report ? Patient Name: Don Fatima. ? Procedure Date: 01/30/2022 ? A #: [id number] ? Primary Physician: Nobles, Vitaliy P ? Case #: [id number] ? File Name: [id number] ? Catheterization Order Number: [id number] ? [facility] ? Final Report [place], [place] ? Patient Name: ? Don E. Stewa rt ? ID#: ?[id number] ? : ?1945 ? Procedure Date: ? [...] procedure was Urgent. The indication for ?the general laborer visit is stable kn own CAD. [...] guiding catheter an d a 3.[address] ??20 Mhz ?using Manual pullback. ??Imagin [...] A premounted 2.00 x 26 mm Hardeep Labelle (TUCKER) ? was deployed wi a maximum [...] Wedelivered along 2.0 x 26 mm HARDEEP Labelle ? TUCKER stent and p ositioned it [...] dose administered prior to arrival in the general laborer. ?Recommended anti-platelet/anti- thrombotic regimen: ?Continue aspirin [...] may require ?modification of this regimen. [facility] ?questions. ?The [...] using a 2.0 x 26 mm HARDEEP Labelle TUCKER stent. ?This completes the revasculariz ation [...] Don Fatima Procedure Date: 01/30/2022 A #: [id number] Primary Physician: Vitaliy Nobles Case #: [id number] File Name: [id number] Catheterization Order Number: [id number] [facility] [place], [place] Patient Name: Don Fatima ID#: [...] e was Urgent. The indication for the general laborer visit is stable known CAD. Chest [...] 1.5 guiding catheter and a 3.[address] 20 Mhz using Manual pullback. Imaging [...] A premounted 2.00 x 26 mm Hardeep Labelle (TUCKER) was deployed with a maximum inflation [...] along 2. 0 x 26 mm HARDEEP Labelle TUCKER stent and positioned it at the [...] administered prior t o arrival in the general laborer. Recommended anti-platelet/anti-thrombot ic regimen: Continue aspirin [...] using a 2.0 x 26 mm HARDEEP Labelle TUCKER stent. This completes the revascularization of [...] 212 (H) 65 - 199 [facility] mg/dL [facility] LABORATORY Comment: Supplemental ranges: <140 mg/dL before meals <180 mg/dL all other times of the day Specimen Anatomical Collection Method Collection Time Receive d Time (Source) Location / / Volume Laterality Blood 01/30/2022 9:04 AM 2 9:04 EDT AM EDT Vitaliy Nobles MD POINT OF CARE TEST ORDERABLE S Performing Organization Address City/State/[place] [address] (ABNORMAL) POCT Glucose (01/30/2022 8:10 AM EDT) athologist Signature POC Glucose 224 (H) 65 - 199 [facility] mg/dL [facility] LABORATORY Comment: Supplemental ranges: <140 mg/dL before meals <180 mg/dL all other times of the day Specimen Anatomical Collection Method Collection Time Receive d Time (Source) Location / / Volume Laterality Blood 01/30/2022 8:10 AM 2 8:10 EDT AM EDT Vitaliy Nobles MD POINT OF CARE TEST ORDERABLE S Performing Organization Address City/State/[place] [address] documented in this encounter Visit Diagnoses Diagnosis ASCVD (arteriosclerotic cardiovascular d isease) Unspecified cardiovascular disease 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 ASHD (arteriosclerotic heart disease) Coronary atherosclerosis of unspecified type of vessel, [place] or graft ASCVD (arteriosclerotic cardiovascular d isease) Unspecified cardiovascular disease documented in this encounter Admitting Diagnoses Diagnosis CAD (coronary artery disease) Coronary atherosclerosis of unspecified type of vessel, [place] or graft documented in this encounter Administered [...] Given 02/2022 10:11 AM EDT 100 mcg (OCEANOLOGIST) ONCE PRN, Starting on Wed01/30/22 at 0927, [...] Procedure), Routine niCARdipine (Cardene) (100 mcg/mL) dilution (OCEANOLOGIST) (CANCELED ) 0927 (Given - Provider: Vitaliy [...] (Intra-Procedure) documented in this encounter Care Teams Academic Computing Director Relationship Specialty Start Date End Date Lovely Vicente MD PCP - General 04/16/[address] [place] [address] documented as of this encounter
--- OUTSIDE RECORDS SUMMARY | 2022-04-13 08:06 | XMS_ITS | Encounter Summary ---
:1945 [place] [address] Care Team Providers Name Role Phone Lovely Vicente MD Primary Care Provider Reason for Visit Reason Onset Date Comments Follow-up 03/06/2022 Dave Bueno Encounter Details Date Type Department Care Team Description 03/06/2022 Telephone Cardiology at [facility] Martha Comer, Follow-up ([facility] VAMSI Start) [place] [address] Social History Tobacco Use Types Packs/Day [...] pt had gotten his labs done at [facility] yesterday. Results received, scanned and entered [...] Zulma Dolan MD [facility] [place], [place] [address] (Wo rk) 05/28/2022 Laboratory Appointment Lab 05/28/2022 Office Visit Cardiology Zulma Dolan MD [facility] [place] [address] Liz Poole PA [facility] [place] [address] 06/10/2022 Office Visit Dermatology Laura Scherer MD [facility] DR [address] [place], [place] [address] (Wo rk) documented as [...] filedocumented in this encounter Care Teams Community Service Specialist Relationship Specialty Start Date End Date Lovely Vicente MD PCP - General 04/16/[address] [place] [address] documented as of this encounter
--- OUTSIDE RECORDS SUMMARY | 2022-04-13 08:06 | XMS_ITS | Encounter Summary ---
:1945 Author Organization [facility] Address [facility] [place] [address] Care Team Providers Name Role Phone Lovely Vicente MD Primary Care Provider Reason for Visit Reason Comments Prior Authorization Entresto 24-26mg tablets Encounter Details Date Type Department Care Team Description 02/20/2022 Specialty Pharmacy Pharmacy at [facility] Lamberto Smith Prior Authorization [facility] J (Entresto 24-26mg Drive tablets) [place] [id number] Social History Tobacco Use Types Packs/Day Years [...] Don Fatima Patient : 1945 Patient Address: [address] [place] [address] [place] [address] (home) Medication Name: ENTRESTO 24 MG-26 MG TABLET Medication ID: [id number] Patient Location: [facility] CARDIOLOGY 4A Patient Location Comment: Medication Strength Frequency Requested: Entresto 24-26mg tablets / One tablet twice daily Qty/Day Supply: New Start: New to Therapy Diagnosis & ICD-10 Code: Chronic systolic heart failure, I50.22 Subscriber Insurance: [employer] [facility] Subscriber Insurance Comment: Fax: Physician: LIZ CARRERA Physician Comment : PA Status: NO PA REQUIRED Insurance mandated Pharmacy: Unknown Fillable at [facility]: Yes Insurance requirements/notes: None Copay: $119.01 (goes to coverage gap/odalys monteiro) Copay assistance: [employer] Copay assistance comment: If cost isn't affordable, then we'll suggest enrollment in the currently open [facility] Heart Failure zoila, which provides up to $1000 in copay assistance. If zoila closes, or doesn't work out, then the patient can attempt enrollment in the dock guard assistance program, the [employer] Patient Assistance Foundation (NPAF). At which point we'd refer to [facility] for assistance with enrollment. Pharmacy staff [...] Cardiology Zulma Dolan MD [facility] [address] [place] [address] (Wo rk) 05/28/2022 Laboratory Appointment Lab 05/28/2022 Office Visit Cardiology Zulma Dolan MD [facility] [place] [address] Liz Carrera PA [facility] [place] [address] 06/10/2022 Office Visit Dermatology Laura Scherer MD [facility] ER DR [address] [place], [place] [address] (Wo rk) documented as of this encounter Visit Diagnoses Not on filedocumented in this encounter Care Teams Diesel Technician Mechanic Relationship Specialty Start Date End Date Lovely Vicente MD PCP - General 04/16/[address] [place] [address] documented as of this encounter
--- OUTSIDE RECORDS SUMMARY | 2022-04-13 08:07 | XMS_ITS | Encounter Summary ---
:1945 [place] [address] Care Team Providers Name Role Phone Lovely Vicente MD Primary Care Provider Encounter Details Date Type Department Care Team Description 12/25/2021 Office Visit Cardiology at [facility] Liz Poole, Chronic systolic heart [facility] [place] [address] Cardiology Dept [phone] [place], [place] [address] Social History Tobacco Use Types [...] [facility], transferred from [facility], respiratory distress with hypoxia 86% on RA. [...] mg PO daily in place of Lasix. [place] is new for him and he will [...] Antiplatelet (DAPT) Recommendations above ? TTE from [facility] 12/08/21 ?? 07/28/2019 Echocardiogram: SUMMARY: 1. The [...] regurgitation present. 07/07/2019 - 07/21/2019 Zio Patch Tour Guide The patient had a minimum heart rate [...] hyperkalemia 4.9 today 6. Post-op atrial fibrillation [id number] (CHF, HTN, DM, vascular disease, thromboembolism) Eliquis 7. PAD 08/06/2017: Right 1st, 2nd, 3rd toe amputation 08/11/2017: Left??femoral arterial access, RLE??angiogram, Balloon angioplasty of R PT 10/25/2017: right popliteal-pedal bypass at [facility] 8. Hypothyrodism S/p thyroidectomy for goiter Levothyroxine ?? Plan: 1 month follow up with labs Liz Poole PA-C 12/25/2021 documented in this encounter Plan of Treatment Upcoming Encounters Date Type Specialty Care Team Description 05/28/2022 Appointment Cardiology Zulma Dolan MD [facility] [address] [place], [place] [address] (Wo rk) 05/28/2022 Laboratory Appointment Lab 05/28/2022 Office Visit Cardiology Zulma Dolan MD [facility] [place] [address] Liz Poole PA [facility] [place] [address] 06/10/2022 Office Visit Dermatology Laura Scherer MD [facility] [address] [place], [place] [address] (Mikayla alcaraz) documented as of this encounter Results (ABNORMAL) pro-Brain Natriuretic Peptide (12/25/2021 7:46 AM EDT) athologist Signature ProBNP 1,380 (H) <=124 [facility] Specimen Anatomical Collection Method Collection Time Receive d Time (Source) Location / / Volume Laterality Blood 12/25/2021 7:46 AM 8:01 EDT AM EDT Resulting Agency Comment Spec In Lab Zulma Plunkett MD CHEMISTRY ORDERABLES Performing Organization Address City/State/[place] [address] (ABNORMAL) Basic Metabolic Panel (non-fasting) (12/25/2021 7:46 AM EDT) athologist Signature Glucose Lvl 272 (H) 65 - 199 [facility] mg/dL [facility] [...] Organization Address City/State/[place] [address] documented in this encounter Visit Diagnoses Diagnosis Chronic systolic heart failure documented in this encounter Care Teams Thread Machine Operator Relationship Specialty Start Date End Date Lovely Vicente MD PCP - General 04/16/[address] [place] [address] documented as of this encounter
--- OUTSIDE RECORDS SUMMARY | 2022-04-13 08:07 | XMS_ITS | Encounter Summary ---
:1945 Author Organization [facility] [place] [address] Care Team Providers Name Role Phone Lovely Vicente MD Primary Care Provider Reason for Referral Consultation (Routine) - Closed Specialty Diagnoses / Referred By Contact Referred To Contact Procedures Cardiac Rehabilitation Diagnoses Acute HFrEF (heart failure with reduced ejection fraction) Janneth Padilla, Cardiac Rehab, [address] [place], [place] CARDIOLOGY DEPT. [address] [place] [address] Referral ID Status Reason Start Date Expiration Date Visits V isits Requested Authorized [id number] Closed Consult, 12/12/2021 12/12/2022 36 36 Test & Treat Reason for Visit Auth/Cert Specialty Diagnoses / Procedures Referred By Contact Refer red To Contact Diagnoses NSTEMI Procedures emerg ipi Referral ID Status Reason Start Date Expiration Date Visits Requ ested Visits Authorized [id number] 1 1 Encounter Details Date Type Department Care Team Description 12/08/2021 - Hospital Encounter Intermediate Cardiac Iker Cuevas MD [facility] [place] [address] Non-ST elevation myocardial infarction ( NSTEMI); 12/12/2021 Care Unit Ifeanyi Rene MD [facility] [address] ST elevation myocardial infarction (STEM I), unspecified artery; [facility] Acute HFr EF (heart failure with reduced ejection fraction) [place] [address] Social History Tobacco Use Types Packs/Day Years [...] Peter PA-C Kelly LaFlamme PA-C Cardiovascular Medicine [phone] Discharge Diagnoses (Hospital Problems) and Secondary Diagnoses [...] 3.75 guiding catheter and a 3.5 Fr [facility] 20 Mhz using Manual pullback. Imaging was successful. Image quality was good. The ostial LCX showed moderate diffuse atherosclerotic plaque with scattered three quadrant calcification. Measurements were performed after pre-dilation. Post Intervention: The stent was well expanded and apposed. Intravascular Ultrasound was performed in the distal LM using a 7 Fr EBU 3.75 guiding catheter and a 3.5 Fr [facility] 20 Mhz using Manual pullback. Imaging was [...] vascular congestion and cardiomegaly. ?? TTE from [facility] 12/08/21 ? Prior Cardiac [...] prior thyroidectomy in 2012 who presented to [facility] with 1 week progressing [...] 03/2021 with Liz Poole PA-C. ?? At [facility], respiratory distress with hypoxia [...] Fatima??is a 76 y.o.??male??with h/o??CAD s/p 3vCABG (TOHMPSON-LAD, sequential SVG-OM1-D1) 07/07/2017 following late STEMI, ischemic [...] mg PO daily in place of lasix. Mcfarland is new for him and he will have a BMP checked on 12/[address] Cuevas spoke with the patient's and told her that him drinking too much water and diet drinks did not cause his UT. This is what his thought was the [...] be ~$24/mo; affordable per patient. Post [facility] he was started on Eliquis. He [...] appointments: During 8am-5pm Wednesday through Wednesday call [phone] to speak with a nurse in the cardiology clinic All other times call [phone] and ask to speak to the predatory animal trapper low emission automobile designer. Return to work: One week Driving: No driving for 48 hours after catheterization. Follow up Appointments: PCP Lovely Vicente MD [phone] to see patient at the end of December for annual check up. Patient to see Dr. Lorenzana at 1120 am at December 19 for a post hospital check up. Luggage Liner Dr. De Oliveira to see you in [facility]. Left a message for office to set a date and time. Please call [phone] Nobles to see the patient for a same day cath in 2-3 weeks from now. Office to call with a date and time. For questions please call [phone] Home oxygen therapy: N/A Arrangements for VNA/home care: none Future Appointments and Orders Future Orders Complete By Expires Basic Metabolic Panel (non-fasting) [LAB15 Custom] 12/19/2021 (Approximate) 12/12/2022 Process Instructions: INCLUDES: Calcium, BUN, Creat, GFR, Glucose, Lytes Scheduling Instructions: Comments: Questions: Referral to Cardiac Rehab [HFL884 Custom] As directed Process Instructions: If no [...] appointments: During 8am-5pm Wednesday through Wednesday call [phone] to speak with a nurse in the cardiology clinic All other times call [phone] and ask to speak to the predatory animal trapper low emission automobile designer. Return to work: One week Driving: No driving for 48 hours after catheterization. Follow up Appointments: PCP Lovely Vicente MD [phone] to see patient at the end of December for annual check up. Patient to see Dr. Lorenzana at 1120 am at December 19 for a post hospital check up. Luggage Liner Dr. De Oliveira to see you in [facility]. Left a message for office to set a date and time. Please call [phone] Nobles to see the patient for a same day cath in 2-3 weeks from now. Office to call with a date and time. For questions please call [phone] Home oxygen therapy: N/A Arrangements for VNA/home [...] Progress Note Patient Name: Don Fatima Service: MACHINIST MATE / PA Responsible Attending: Ifeanyi Truong MD [...] was given Lasix 80mg IV x1 in senior label specialist. Tolerated procedure well. Home today at [...] 1.13* 0.92* 0.89* Pertinent Radiographic/Diagnostic Results: R/[facility] 12/10/21 Hemodynamics: Right Heart Pressures Resting: [...] pulmonary vascular congestion and cardiomegaly. TTE from [facility] 12/08/21 Prior Cardiac Studies: [...] with MD Janneth Neville PA 12/12/2021 Pager [phone] Associated attestation - Ifeanyi Truong MD - [...] [facility] Diabetes Management Pager [phone] 20 minutes of this 35 minute visit [...] Progress Note Patient Name: Don Fatima Service: MACHINIST MATE / PA Responsible Attending: Iker Cuevas MD [...] + trop. Known CAD with hx of UT and CABG. DM. MARIA VICTORIA.ICM. ??? ASHD [...] was given Lasix 80mg IV x1 in senior label specialist. Tolerated procedure well. Review of Systems: [...] 1.13* 0.92* 0.89* Pertinent Radiographic/Diagnostic Results: R/[facility] 12/10/21 Hemodynamics: Right Heart Pressures Resting: [...] pulmonary vascular congestion and cardiomegaly. TTE from [facility] 12/08/21 Prior Cardiac Studies: [...] and answered his questions. Iker Cuevas MD [facility] Total time spent on review of records prior to visit, face to face time with patient during visit, documentation, and coordination of care with other clinicians: 25 minutes. . Iker Cuevas MD - 12/10/2021 12:30 PM EDT Images from the original note were not included. Inpatient Cardiology Progress Note Patient Name: Don Fatima Service: MACHINIST MATE / PA Responsible Attending: Iker Cuevas MD Reason for continued hospitalization: NSTEMI- s/p R/LHC- PCW 27, occluded SVGs s/p PCI to ostial LCX ADHF and hypoxia- IV diuresis Active Problems: Active Hospital Problems Diagnosis ??? Admitted with 2 days of sob, hypoxemia, and + trop. Known CAD with hx of UT and CABG. DM. MARIA VICTORIA.ICM. ??? ASHD [...] was given Lasix 80mg IV x1 in senior label specialist. Tolerated procedure well. Review of Systems: [...] ??? heparin (porcine) infusion 1,600 Units/hr (12/09/21 2320) PRN Meds:ipratropium-albuteroL, senna-docusate, bisacodyL, sodium chloride 0.9 [...] 1.13* 0.92* 0.89* Pertinent Radiographic/Diagnostic Results: R/[facility] 12/10/21 Hemodynamics: Right Heart Pressures Resting: [...] pulmonary vascular congestion and cardiomegaly. TTE from [facility] 12/08/21 Prior Cardiac Studies: [...] Discussed with MD Migdalia Peter PA-C Pager #[phone] 12/10/2021 Cardiology Attending Note I have seen [...] updated and given pictures. Iker Cuevas MD [facility] Total time spent on review of records prior to visit, face to face time with patient during visit, documentation, and coordination of care with other clinicians: 35 minutes. Iker Cuevas MD - 12/09/2021 7:28 AM EDT Images from the original note were not included. Inpatient Cardiology Progress Note Patient Name: Don Fatima Service: MACHINIST MATE / PA Responsible Attending: Iker Cuevas MD Reason for continued hospitalization: NSTEMI- awaiting R/LHC ADHF and hypoxia- IV diuresis, R/LHC Active Problems: Active Hospital Problems Diagnosis ??? Admitted with 2 days of sob, hypoxemia, and + trop. Known CAD with hx of UT and CABG. DM. MARIA VICTORIA.ICM. ??? ASHD [...] ??? heparin (porcine) infusion 1,600 Units/hr (12/09/21 0811) PRN Meds:ipratropium-albuteroL, sodium chloride 0.9 % (flush), [...] pulmonary vascular congestion and cardiomegaly. TTE from [facility] 12/08/21 Prior Cardiac Studies: [...] Discussed with MD Migdalia Peter PA-C Pager #[phone] 12/09/2021 Cardiology Attending Note I have seen and examined the patient. I agree with the findings above. Developed CHF early this am despite getting more iv lasix last evening. Feeling better now. INR > 2. Lungs still wet at base. Echo at [facility] showed EF 35% with mild mod MR slightly lower than last value here. -vit K 2.5 orally to facilitate correction of INR- this will take 12-24 hours to take effect -furosemide 80 mg iv now -postpone right and left heart cath until tomorrow given INR and ADHF -increase statin to achieve LDL < 70 -CPAP tonight Iker Cuevas MD [facility] Total time spent on review of [...] + trop. Known CAD with hx of UT and CABG. DM. MARIA VICTORIA.ICM. ??? ASHD [...] prior thyroidectomy in 2012 who presented to [facility] with 1 week progressing [...] visit 03/2021 with Liz Poole PA-C. At [facility], respiratory distress with hypoxia [...] at [facility] OR ??? PRO AMPUTATION FOOT, TRANSMETATARSAL Right 08/09/2017 AMPUTATION, TRANSMETATARSAL (WRVU 12.71) performed by Yonathan Smith MD at [facility] OR ??? PRO CABG, ARTERIAL, SINGLE N/A 07/07/2017 @CABG, USING ARTERIAL GRAFT;SINGLE ARTERIAL GRAFT (WRVU 33.75) performed by Yuan Retana MD at [facility] [...] 0.86) performed by Lamar Smith MD at [facility] OR ??? PRO ENDOSCOPY W/VIDEO-ASST VEIN HARVEST, CABG Right 07/07/2017 ENDOSCOPIC HARVEST VEIN(S) FOR CABG (WRVU 0.31) performed by Yuan Retana MD at [facility] [...] (H) 65 - 199 mg/dL Labs at [facility] 12/08/2021-troponin I 8004 (UN [...] for ADRs. Trend troponins. Admission EKG. [facility] 12/09; consented. TTE. Telemetry monitoring, daily [...] #Diet-carb control; n.p.o. after midnight for [facility] #DVT prophy- heparin infusion #GI prophy- PPI Discussed with MD Morgan Peter PA-C APP2 pager [phone] 12/08/2021 Cardiology Attending Note I have seen [...] is type 1 due to graft or [place] coronary stenosis vs acute injury from CHF. 3. PAF: currrently in NSR. Have replaced warfarin with heparin 4. PAD: stable 5. DM: stable 6. CKD: will monitor and minimize contrast. Pt very appreciative of Dr. Yuan Retana's care in 2018. Will let him know patient is here. Iker Cuevas MD [facility] documented in this encounter Miscellaneous Notes [...] Type: *No Product type* / Secondary Insurance: [employer] (roll.to) [place] Prescription Coverage: Yes This plan was [...] cath without complications. Migdalia Parker PA-C Pager #[phone] 12/10/2021 Initial Assessments - Nick Georges RN [...] COVID test: Lab Results Component Value Date [id number] Not Detected 12/08/2021 Past medical History: Past [...] spouse would be surrogate decision maker per [place] surrogate decision making law. (Only good for 180 days) Any patient receiving care at [facility] must abide by [place] law. The hierarchy for surrogate decision making [...] (i) The agent with financial power of real estate associate attorney or a conservator appointed in [...] - standard, cane - straight Home Address: [address] [place] [address] [place] [address] Social & Family Supports: All names listed below confirmed with patient as current and correct Extended Emergency Contact Information Primary Emergency Contact: Kisha Fatima Address: [address] [place] [address] [place] [address] [facility] [place] Relation: Spouse Secondary Emergency Contact: Elba Swenson Address: [address] Mobile Relation: Child Current Care Provided [...] Type: *No Product type* / Secondary Insurance: [employer] CROSS BLUE [facility] Prescription Coverage: Yes Preferred Pharmacy: [facility] Home [facility] [address] [address] [address] [address] - [address] [address] Cost Status: Patient is a : unable to assess Primary Care Provider: Lovely Vicente MD [phone] Patient/Caregiver Goals of Treatment: Get out of here Potential Needs for Transition of Care: none Agency Referrals: none patient has used [email or web address] in the past Transportation: no concerns Transportation Anticipated: family or friend will provide Concerns to be Addressed: patient refuses services, discharge planning Assessment: Patient is admitted to [facility] Service pager [phone] for 76 y.o.??male??with h/o??CAD s/p 3vCABG (THOMPSON-LAD, [...] status on current unit. Nick Georges RN pugger helper, Office of Care Management Pager: [phone] Brief Op Note - Vitaliy Nobles MD - 12/10/2021 8:31 AM EDT Images from the original note were not included. Former[facility] 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 Diabetes History: Don Fatima has had diabetes for 10 years. He has been on insulin for the last several years andis managed by his PCP. Lives in [place], [place] with his . States that [...] Hold] heparin (porcine) infusion 1,600 Units/hr (12/09/21 3963) PRN: [SEP Hold] ipratropium-albuteroL, [SEP Hold] senna-docusate, [...] provide care for your patient Desirae Shaper SOFT BOARDER Endocrinology Pager [phone] 70 minutes of this [...] + trop. Known CAD with hx of UT and CABG. DM. MARIA VICTORIA.ICM. ??? ASHD [...] to remain on Med/Surg floor, please page [phone] for any further questions or concerns. LANDON [...] for further details. STEPHANIE Rebolledo 12/08/2021 Pager [phone] documented in this encounter Plan of Treatment Upcoming Encounters Date Type Specialty Care Team Description 05/28/2022 Appointment Cardiology Zulma Dolan MD [facility] [place], [place] [address] (Wo rk) 05/28/2022 Laboratory Appointment Lab 05/28/2022 Office Visit Cardiology Zulma Dolan MD [facility] [place] [address] Liz Poole PA [facility] [place] [address] 06/10/2022 Office Visit Dermatology Laura Scherer MD [facility] [address] [place], [place] [address] (Wo rk) Scheduled Referrals Name [...] POC Glucose 215 (H) 65 - 199 [facility] mg/dL [facility] Comment: Supplemental ranges: <140 mg/dL before meals <180 mg/dL all other times of the day Specimen Anatomical Collection Method Collection Time Receive d Time (Source) Location / / Volume Laterality Blood 12/12/2021 7:42 AM 7:42 EDT AM EDT Ifeanyi Truong MD POINT OF CARE TEST ORDERABLE S Performing Organization Address City/State/[place] [address] (ABNORMAL) Differential, Automated (12/12/2021 4:51 AM EDT) athologist Signature Neutrophils % 75.4 % [facility] Neutr Abs (ANC) 5.95 1.70 - [facility] 6.10 [facility] x10(3)/[facility] LABORATORY Lymphocytes % 12.2 % [facility] Lymphocytes Abs 1.0 0.9 - 3.2 [facility] x10(3)/[facility] LABORATORY Monocytes % 9.5 % [facility] Monocyte Abs 0.8 0.3 - 0.9 [facility] x10(3)/[facility] LABORATORY Eosinophils % 1.8 % [facility] Eosinophils Abs 0.1 0.0 - 0.4 [facility] x10(3)/[facility] LABORATORY Basophils % 0.5 % [facility] Basophils Abs 0.0 0.0 - 0.1 [facility] x10(3)/[facility] LABORATORY Immature Gran % 0.60 % [facility] [...] Organization Address City/State/[place] [address] (ABNORMAL) Hemogram (12/12/2021 4:51 AM EDT) Analysis Performed At Patho logist Time Signature WBC 7.9 4.0 - 9.5 [facility] x10(3)/[facility] LABORATORY RBC 4.19 (L) 4.58 - [facility] 5.54 [facility] x10(6)/[facility] LABORATORY Hemoglobin 12.1 (L) 13.7 - [facility] 16.[facility] g/dL [facility] Hematocrit 36.7 (L) 40.5 - [facility] 48.5 % [facility] MCV 87.6 82.9 - [facility] 93.1 fL [facility] MCH 28.9 27.5 - [facility] 32.1 pg [facility] MCHC 33.0 32.0 - [facility] 35.7 g/dL [facility] Platelets 231 145 - 357 [facility] x10(3)/[facility] LABORATORY RDWSD 47.2 (H) 36.0 - [facility] 45.0 [facility] LABORATORY RDWCV 14.6 (H) 11.4 - [facility] 13.8 % [facility] MPV 9.5 7.6 - 12.9 [facility] LABORATORY nRBC % Auto 0.0 % [facility] nRBC Abs Auto 0.000 0.000 - [facility] 0.000 [facility] x10(3)/[facility] LABORATORY Specimen Anatomical Collection Method Collection Time Receive d Time (Source) Location / / Volume Laterality Blood 12/12/2021 4:51 AM 2 5:06 EDT AM EDT Resulting Agency Comment Spec In Lab Bijan Sun MD HEMATOLOGY ORDERABLES Performing Organization Address City/[facility]/[place]IP [place] [address] (ABNORMAL) Prothrombin Time (12/12/2021 4:51 AM EDT) P athologist Signature PT 14.9 (H) 9.4 - 12.5 [facility] LABORATORY INR 1.3 [facility] [...] Cuevas MD HEMATOLOGY ORDERABLES Performing Organization Address City/[facility]/[place]IP [place] [address] (ABNORMAL) BMP w/fasting Glucose (12/12/2021 4:51 AM EDT) athologist Signature Glucose 152 (H) 65 - 99 [facility] Fasting mg/dL [facility] Comment: ?Fasting* Glucose Interpretive [...] 145 mmol/L [facility] Potassium 3.9 3.5 - 5.0 mmol/L [facility] [...] LABORATORY Calcium 8.9 8.5 - 10.5 mg/dL [facility] Estimated GFR 38 (L) [...] [place] [address] Magnesium (12/12/2021 4:51 AM EDT) P athologist Signature Magnesium 1.02 0.69 - 1.07 [facility] mmol/L [facility] Specimen Anatomical Collection Method Collection Time Receive d Time (Source) Location / / Volume Laterality Blood 12/12/2021 4:51 AM 2 5:06 EDT AM EDT Resulting Agency Comment Spec In Lab Iker Cuevas MD CHEMISTRY ORDERABLES Performing Organization Address City/[facility]/[place]IP [place] [address] POCT Glucose (12/12/2021 3:43 AM EDT) P athologist Signature POC Glucose 138 65 - 199 [facility] mg/dL [facility] Comment: [...] [place] [address] POCT Glucose (12/11/2021 11:44 PM EDT) athologist Signature POC Glucose 124 65 - 199 [facility] mg/dL [facility] Comment: [...] City/[facility]/[place]IP [place] [address] (ABNORMAL) POCT Glucose (12/11/2021 8:12 PM EDT) athologist Signature POC Glucose 200 (H) 65 - 199 [facility] mg/dL [facility] [...] City/[facility]/[place] [address] (ABNORMAL) POCT Glucose (12/11/2021 6:50 PM EDT) athologist Signature POC Glucose 245 (H) 65 - 199 [facility] mg/dL [facility] Comment: [...] [place] [address] (ABNORMAL) POCT Glucose (12/11/2021 4:00 PM EDT) P athologist Signature POC Glucose 383 (H) 65 - 199 [facility] mg/dL [facility] Comment: Supplemental ranges: <140 mg/dL before meals <180 mg/dL all other times of the day Specimen Anatomical Collection Method Collection Time Receive d Time (Source) Location / / Volume Laterality Blood 12/11/2021 4:00 PM 4:00 EDT PM EDT Iker Cuevas MD POINT OF CARE TEST ORDERABLE S Performing Organization Address City/[facility]/[place] [address] (ABNORMAL) POCT Glucose (12/11/2021 12:01 PM EDT) athologist Signature POC Glucose 342 (H) 65 - 199 [facility] mg/dL [facility] [...] City/[facility]/[place] [address] COVID-19 PCR (12/11/2021 10:13 AM EDT) [facility] gist Method Time Signature SARS-CoV-2 Not Detected Not Detected [facility] Comment: This result should be interpreted [...] diagnosis of COVID-19 is performed using the [employer] Dianna FRIEND S-CoV-2 Assay as authorized by the FDA Emergency Use Authorization (EUA). This EUA assay is intended for In-vitro Diagnostic (IVD) use with respiratory sp ecimens such as nasopharyngeal swabs collected from individuals during the ac salt river phase of infection. This assay is performed based on the instructions for use provided by [employer] and additional guidance provided by CDC [...] fact sheets at the following FDA website: https://www.fda.gov/medical-devices/tazeenaahrs-tufslum-7293-gaixr-68-ayddynxfj- ivt-toffbcemmxheaw-nrkbahe-devices/bjqvo-fpwxnudjure-nkmo SARS-Cov-2 RNA Source MACHINIST MATE Swab [facility] Specimen (Source) Anatomical Collection Method Collection Time Re ceived Time Location / / Volume Laterality Nasopharyngeal Swab 12/11/2021 10:13 05/03/2022 AM EDT 11:16 AM EDT Comment: Symptoms->Surveillance Resulting Agency Comment Spec In Lab Iker Cuevas MD MICROBIOLOGY - GENERAL ORDER ROBSON Performing Organization Address City/[facility] [place] [address] POCT Glucose (12/11/2021 7:34 AM EDT) athologist Signature POC Glucose 198 65 - 199 [facility] mg/dL [facility] Comment: [...] City/[facility]/[place] [address] (ABNORMAL) POCT Glucose (12/11/2021 5:07 AM EDT) P athologist Signature POC Glucose 208 (H) 65 - 199 [facility] mg/dL [facility] [...] City/[facility]/[place] [address] (ABNORMAL) Differential, Automated (12/11/2021 4:28 AM EDT) [facility] Method Time Signature Neutrophils % 79.6 % [facility] Neutr Abs (ANC) 7.01 (H) 1.70 - [facility] 6.10 [facility] [facility] x10(3)/[facility] L LABORATORY Lymphocytes % 9.1 % [facility] LABORATORY Lymphocytes Abs 0.8 (L) 0.9 - 3.2 [facility] x10(3)/[facility] LABORATORY Monocytes % 9.2 % [facility] LABORATORY Monocyte Abs 0.8 0.3 - 0.9 [facility] x10(3)/[facility] LABORATORY Eosinophils % 1.3 % [facility] LABORATORY Eosinophils Abs 0.1 0.0 - 0.4 [facility] x10(3)/[facility] LABORATORY Basophils % 0.5 % [facility] LABORATORY Basophils Abs 0.0 0.0 - 0.1 [facility] x10(3)/[facility] LABORATORY Immature Gran % 0.30 % [facility] [...] Gran Abs 0.03 0.00 - 0.04 x10(3)/[facility] LABORATORY Specimen Anatomical Collection Method Collection Time Receive d Time (Source) Location / / Volume Laterality Blood 12/11/2021 4:28 AM 4:37 EDT AM EDT Resulting Agency Comment Spec In Lab Bijan Sun MD HEMATOLOGY ORDERABLES Performing Organization Address City/[facility]/[place] [address] (ABNORMAL) Hemogram (12/11/2021 4:28 AM EDT) Analysis Performed At Patho logist Time Signature WBC 8.8 4.0 - 9.5 [facility] x10(3)/[facility] LABORATORY RBC 4.15 (L) 4.58 - [facility] x10(6)/[facility] LABORATORY Hemoglobin 11.9 (L) 13.7 - [facility] g/dL [facility] LABORATORY Hematocrit 36.9 (L) 40.5 - [facility] 48.5 % [facility] LABORATORY MCV 88.9 82.9 - [facility] 93.1 [facility] LABORATORY MCH 28.7 27.5 - [facility] 32.1 pg [facility] LABORATORY MCHC 32.2 32.0 - [facility] 35.7 g/dL [facility] LABORATORY Platelets 211 145 - 357 [facility] x10(3)/[facility] LABORATORY RDWSD 48.3 (H) 36.0 - [facility] 45.0 [facility] LABORATORY RDWCV 14.8 (H) 11.4 - [facility] 13.8 % [facility] LABORATORY MPV 9.6 7.6 - 12.9 [facility] LABORATORY nRBC % Auto 0.0 % [facility] LABORATORY nRBC Abs Auto 0.000 0.000 - [facility] 0.000 [facility] x10(3)/[facility] LABORATORY Specimen Anatomical Collection Method Collection Time Receive d Time (Source) Location / / Volume Laterality Blood 12/11/2021 4:28 AM 2 4:37 EDT AM EDT Resulting Agency Comment Spec In Lab Bijan Sun MD HEMATOLOGY ORDERABLES Performing Organization Address City/State/[place] [address] (ABNORMAL) Prothrombin Time (12/11/2021 4:28 AM EDT) P athologist Signature PT 17.7 (H) 9.4 - 12.5 [facility] LABORATORY INR 1.6 [facility] LABORATORY [...] [place] [address] (ABNORMAL) BMP w/fasting Glucose (12/11/2021 4:28 AM EDT) athologist Signature Glucose 207 (H) 65 - 99 [facility] Fasting mg/dL [facility] LABORATORY Comment: ?Fasting* Glucose Interpretive [...] mg/dL [facility] LABORATORY Estimated GFR 48 (L) [...] Cuevas MD CHEMISTRY ORDERABLES Performing Organization Address City/[facility] [place] [address] Magnesium (12/11/2021 4:28 AM EDT) P athologist Signature Magnesium 1.04 0.69 - 1.07 [facility]/L [facility] LABORATORY Specimen Anatomical Collection Method Collection Time Receive d Time (Source) Location / / Volume Laterality Blood 12/11/2021 4:28 AM 2 4:37 EDT AM EDT Resulting Agency Comment Spec In Lab Iker Cuevas MD CHEMISTRY ORDERABLES Performing Organization Address City/State/ZIP Code Phon e Number [place] [id number] HOSPITAL LAB[address]ORY [address] POCT Glucose (12/11/2021 3:58 AM EDT) athologist Signature POC Glucose 189 65 - 199 [place] mg/dL [facility] LABORATORY Comment: [...] City/[facility]/[place] [address] (ABNORMAL) POCT Glucose (12/10/2021 11:45 PM EDT) athologist Signature POC Glucose 205 (H) 65 - 199 [place] mg/dL [facility] LABORATORY Comment: [...] City/[facility]/[place] [address] (ABNORMAL) POCT Glucose (12/10/2021 7:54 PM EDT) athologist Signature POC Glucose 225 (H) 65 - 199 [place] mg/dL [facility] LABORATORY Comment: Supplemental ranges: <140 mg/dL before meals <180 mg/dL all other times of the day Specimen Anatomical Collection Method Collection Time Receive d Time (Source) Location / / Volume Laterality Blood 12/10/2021 7:54 PM 2 7:54 EDT PM EDT Iker Cuevas MD POINT OF CARE TEST ORDERABLE S Performing Organization Address City/State/[place] [address] Potassium (12/10/2021 7:46 PM EDT) athologist Signature Potassium 4.2 3.5 - 5.0 [facility] mmol/L [facility] LABORATORY Comment: Please note: ??Patients [...] Cuevas MD CHEMISTRY ORDERABLES Performing Organization Address City/[facility]/[place] [address] (ABNORMAL) Basic Metabolic Panel (non-fasting) (12/10/2021 6:12 PM EDT) athologist Signature Glucose Lvl 246 (H) 65 - 199 [facility] mg/dL [facility] LABORATORY Comment: [...] Cuevas MD CHEMISTRY ORDERABLES Performing Organization Address City/[facility]/[place] [address] POCT Glucose (12/10/2021 4:59 PM EDT) P athologist Signature POC Glucose 158 65 - 199 [facility] mg/dL [facility] LABORATORY Comment: Supplemental ranges: <140 mg/dL before meals <180 mg/dL all other times of the day Specimen Anatomical Collection Method Collection Time Receive d Time (Source) Location / / Volume Laterality Blood 12/10/2021 4:59 PM 2 4:59 EDT PM EDT Iker Cuevas MD POINT OF CARE TEST ORDERABLE S Performing Organization Address City/State/[place] [address] (ABNORMAL) POCT Glucose (12/10/2021 12:43 PM EDT) P athologist Signature POC Glucose 241 (H) 65 - 199 [place] mg/dL [facility] LABORATORY Comment: [...] Code Phon e Number [facility] [address] EKG 12 Lead (12/10/2021 11:17 AM EDT) Component Value Ref Range Test Analysis Performed Pathologis t Method Time At Signature Ventricular rate 62 BPM MUSE SYSTEM Atrial Rate 62 BPM MUSE SYSTEM P-R Interval 142 ms MUSE SYSTEM QRS Duration 100 ms MUSE SYSTEM Q-T Interval 434 ms MUSE SYSTEM QTC Calculated 440 ms MUSE SYSTEM (Bezet) Calculated P Calvin 34 degrees MUSE SYSTEM Calculated R Calvin -39 degrees MUSE SYSTEM Calculated T Calvin 92 degrees MUSE SYSTEM INTERPRETATION Normal sinus [...] Narrative 12/10/2021 12:04 PM EDT ?[facility] ? Cardiac Cathete rization/Intervention Report ? Patient Name: Don Fatima. ? Procedure Date: 12/10/2021 ? A #: [id number] ? Primary Physician: Nobles, Vitaliy P ? Case #: [id number] ? File Name: [id number] ? Catheterization Order Number: [id number] ? [facility] ? Final Report [place], [place] ? Patient Name: ? Don E. Stewa rt ? ID#: ?[id number] ? : ?1945 ? Procedure Date: ? December 10, 2021 ? Case #: ? [id number] ? Room: ? 1 ? Case Physician: [...] ?designated as ASA Class III. e [facility] clinical frailty scale is 5: Mildly [...] procedure was Urgent. The indication for ?the senior label specialist visit is ACS great er than [...] ?3.75 guiding catheter and a 3.5 Fr [facility] 20 Mhz using Manual ?pullback. ??Imaging was [...] ?3.75 guiding catheter and a 3.5 Fr [facility] 20 Mhz using Manual ?pullback. ??Imaging was [...] may require ?modification of this regimen. C Replaced by [facility] Interventional Cardiology for ?questions. ?The 1 [...] Vitaliy Nobles MD - 01/14/2022 [facility] Cardiac Catheterization/Intervention Re port Patient Name: Kushal Don VedaMadiha Procedure Date: 12/10/2021 A #: [id number] Primary Physician: Vitaliy Nobles Case #: [id number] File Name: [id number] Catheterization Order Number: [id number] [facility] Director Of Events [facility] Final Report [place], [place] Patient Name: Don Fatima ID#: [...] e was Urgent. The indication for the senior label specialist visit is ACS greater than 24 [...] and a 3.5 Fr [facility] 20 Mhz using Manual pullback. Imaging was [...] and a 3.5 Fr [facility] 20 Mhz using Manual pullback. Imaging was successful. Image quality was good. The distal LM showed moderate diffuse atherosclero tic plaque. Post Intervention: The stent was well e xpanded and apposed. Indication for Intervention: Coronary intervention was indicated for primary therapy for an acute myocardial infarction. The priority for the procedure was Urgent. The [facility] indication for the procedure was N MARKIE-ACS. [...] POC Glucose 262 (H) 65 - 199 [facility] mg/dL [facility] LABORATORY Comment: Supplemental ranges: <140 mg/dL before meals <180 mg/dL all other times of the day Specimen Anatomical Collection Method Collection Time Receive d Time (Source) Location / / Volume Laterality Blood 12/10/2021 10:30 12/10/2021 AM EDT 10:30 AM EDT Iekr Cuevas MD POINT OF CARE TEST ORDERABLE S Performing Organization Address City/State/[place] [address] (ABNORMAL) POCT Glucose (12/10/2021 9:48 AM EDT) athologist Signature POC Glucose 279 (H) 65 - 199 [facility] mg/dL [facility] LABORATORY Comment: [...] [place] [address] (ABNORMAL) POCT Glucose (12/10/2021 9:07 AM EDT) P athologist Signature POC Glucose 268 (H) 65 - 199 [facility] mg/dL [facility] LABORATORY Comment: [...] [place] [address] (ABNORMAL) Point of Care Blood Gas Historical (12/10/2021 9:04 AM EDT) Patholo gist Method Time Signature POC pH 7.40 7.35 - [facility] 7.45 [facility] LABORATORY POC PCO2 40 35 - 45 [facility] mmHg [facility] LABORATORY POC PO2 63 (L) 85 - 104 [facility] LABORATORY POC Base Excess 0.0 -3.0 - 3.0 [facility] K mmol/L [facility] LABORATORY POC HCO3 24.8 20.0 - [facility] 26.0 [facility] mmol/[facility] LABORATORY POC Sodium 143 135 - 145 [facility] mmol/L [facility] LABORATORY POC Potassium 3.7 3.5 - 5.0 [facility] mmol/L [facility] LABORATORY POC Ionized Ca 1.07 (L) 1.15 - [facility] 1.33 [facility] mmol/L HOSPITAL LABORATORY POC Hematocrit 30.0 (L) 40.0 - [facility] 51.0 % [facility] LABORATORY POC Calc Hgb 10.2 (L) 13.7 - [facility] 17.5 g/dL [facility] LABORATORY Comment: The calculation of hemoglobin f rom hematocrit assumes a normal MCHC. POC Bgas Loc CC LAB [facility] LABORATORY Specimen Anatomical Collection Method Collection Time Receive d Time (Source) Location / / Volume Laterality Blood 12/10/2021 9:04 AM 2 EDT 12:00 PM EDT Ifeanyi Truong MD CHEMISTRY ORDERABLES Performing Organization Address City/[facility]/[place] [address] (ABNORMAL) POCT Glucose (12/10/2021 7:19 AM EDT) athologist Signature POC Glucose 274 (H) 65 - 199 [facility] mg/dL [facility] LABORATORY Comment: [...] City/[facility]/[place] [address] Heparin (unfractionated) Level (12/10/2021 4:25 AM EDT) athologist Signature Heparin UFH 0.69 IU/mL [facility] LABORATORY Comment: Heparin (anti-Xa) levels [...] Address City/State/ZIP Code Phon e Number [address] (ABNORMAL) Differential, Automated (12/10/2021 4:25 AM EDT) [facility] Method Time Signature Neutrophils % 79.8 % [facility] LABORATORY Neutr Abs (ANC) 7.47 (H) 1.70 - [facility] 6.10 [facility] x10(3)/[facility] LABORATORY Lymphocytes % 10.6 % [facility] LABORATORY Lymphocytes Abs 1.0 0.9 - 3.2 [facility] x10(3)/[facility] LABORATORY Monocytes % 8.4 % [facility] LABORATORY Monocyte Abs 0.8 0.3 - 0.9 [facility] x10(3)/[facility] LABORATORY Eosinophils % 0.6 % [facility] LABORATORY Eosinophils Abs 0.1 0.0 - 0.4 [facility] x10(3)/[facility] LABORATORY Basophils % 0.2 % [facility] LABORATORY Basophils Abs 0.0 0.0 - 0.1 [facility] x10(3)/[facility] LABORATORY Immature Gran % 0.40 % [facility] [...] 0.04 0.00 - 0.04 x10(3)/[facility] LABORATORY Specimen Anatomical Collection Method Collection Time Receive d Time (Source) Location / / Volume Laterality Blood 12/10/2021 4:25 AM 4:34 EDT AM EDT Resulting Agency Comment Spec In Lab Morgan BROWN HEMATOLOGY ORDERABLES Performing Organization Address City/[facility]/ZIP Code Phon e Number [address] (ABNORMAL) Hemogram (12/10/2021 4:25 AM EDT) Analysis Performed At Patho logist Time Signature WBC 9.4 4.0 - 9.5 [facility] x10(3)/[facility] LABORATORY RBC 3.81 (L) 4.58 - [facility] x10(6)/[facility] LABORATORY Hemoglobin 11.1 (L) 13.7 - [facility] 16.5 g/dL [facility] LABORATORY Hematocrit 34.0 (L) 40.5 - [facility] 48.5 % [facility] LABORATORY MCV 89.2 82.9 - [facility] 93.1 [facility] LABORATORY MCH 29.1 27.5 - [facility] 32.1 pg [facility] LABORATORY MCHC 32.6 32.0 - [facility] 35.7 g/dL [facility] LABORATORY Platelets 183 145 - 357 [facility] x10(3)/[facility] LABORATORY RDWSD 49.9 (H) 36.0 - [facility] 45.0 [facility] LABORATORY RDWCV 15.2 (H) 11.4 - [facility] 13.8 % [facility] LABORATORY MPV 9.8 7.6 - 12.9 [facility] LABORATORY nRBC % Auto 0.0 % [facility] LABORATORY nRBC Abs Auto 0.000 0.000 - [facility] 0.000 [facility] x10(3)/[facility] LABORATORY Specimen Anatomical Collection Method Collection Time Receive d Time (Source) Location / / Volume Laterality Blood 12/10/2021 4:25 AM 2 4:34 EDT AM EDT Resulting Agency Comment Spec In Lab Morgan BROWN HEMATOLOGY ORDERABLES Performing Organization Address City/State/[place] [address] (ABNORMAL) Prothrombin Time (12/10/2021 4:25 AM EDT) P athologist Signature PT 20.0 (H) 9.4 - 12.5 [facility] LABORATORY INR 1.7 [facility] LABORATORY [...] City/State/ZIP Code Phon e Number [place] [id number] HOSPITAL LABORATORY Drive (ABNORMAL) BMP w/fasting Glucose (12/10/2021 4:25 AM EDT) athologist Signature Glucose 210 (H) 65 - 99 [facility] Fasting mg/dL [facility] LABORATORY Comment: ?Fasting* Glucose Interpretive [...] 145 mmol/L [facility] LABORATORY Potassium 3.9 3.5 - 5.0 mmol/L [facility] [...] Calcium 8.0 (L) 8.5 - 10.5 mg/dL [facility] [...] Organization Address City/State/[place] [address] Magnesium (12/10/2021 4:25 AM EDT) P athologist Signature Magnesium 0.95 0.69 - 1.07 [facility]/L [facility] LABORATORY Specimen Anatomical Collection Method Collection Time Receive d Time (Source) Location / / Volume Laterality Blood 12/10/2021 4:25 AM 2 4:34 EDT AM EDT Resulting Agency Comment Spec In Lab Iker Cuevas MD CHEMISTRY ORDERABLES Performing Organization Address City/[facility]/ZIP [place] [address] POCT Glucose (12/10/2021 1:58 AM EDT) athologist Signature POC Glucose 164 65 - 199 [facility] mg/dL [facility] LABORATORY [...] City/[facility]/[place] [address] (ABNORMAL) POCT Glucose (12/09/2021 9:02 PM EDT) athologist Signature POC Glucose 313 (H) 65 - 199 [facility] mg/dL [facility] LABORATORY [...] City/[facility]/[place] [address] Heparin (unfractionated) Level (12/09/2021 7:30 PM EDT) athologist Signature Heparin UFH 0.48 IU/mL [facility] LABORATORY Comment: Heparin (anti-Xa) levels [...] Organization Address City/State/[place] [address] (ABNORMAL) Basic Metabolic Panel (non-fasting) (12/09/2021 7:30 PM EDT) athologist Signature Glucose Lvl 372 (H) 65 - 199 [facility] mg/dL [facility] LABORATORY Comment: [...] mg/dL [facility] LABORATORY Estimated GFR 37 (L) [...] [place] [address] (ABNORMAL) POCT Glucose (12/09/2021 6:34 PM EDT) P athologist Signature POC Glucose 408 (H) 65 - 199 [facility] mg/dL [facility] LABORATORY Comment: [...] City/[facility]/[place] [address] (ABNORMAL) POCT Glucose (12/09/2021 6:32 PM EDT) P athologist Signature POC Glucose 356 (H) 65 - 199 [facility] mg/dL [facility] LABORATORY Comment: [...] [place] [address] (ABNORMAL) POCT Glucose (12/09/2021 4:19 PM EDT) athologist Signature POC Glucose 347 (H) 65 - 199 [facility] mg/dL [facility] LABORATORY Comment: [...] City/[facility]/[place] [address] Heparin (unfractionated) Level (12/09/2021 1:29 PM EDT) athologist Signature Heparin UFH 0.42 IU/mL [facility] LABORATORY Comment: Heparin (anti-Xa) levels [...] [place] [address] (ABNORMAL) POCT Glucose (12/09/2021 12:02 PM EDT) P athologist Signature POC Glucose 235 (H) 65 - 199 [facility] mg/dL [facility] LABORATORY [...] City/[facility]/Z[place] [address] (ABNORMAL) POCT Glucose (12/09/2021 9:44 AM EDT) P athologist Signature POC Glucose 214 (H) 65 - 199 [facility] mg/dL [facility] LABORATORY [...] City/[facility]/[place] [address] EKG 12 Lead (12/09/2021 7:57 AM EDT) Component Value Ref Range Test Analysis Performed Pathologis t Method Time At Signature Ventricular rate 101 BPM MUSE SYSTEM Atrial Rate 101 BPM MUSE SYSTEM P-R Interval 150 ms MUSE SYSTEM QRS Duration 112 ms MUSE SYSTEM Q-T Interval 364 ms MUSE SYSTEM QTC Calculated 471 ms MUSE SYSTEM (Bezet) Calculated P Calvin 59 degrees MUSE SYSTEM Calculated R Calvin -42 degrees MUSE SYSTEM Calculated T Calvin 102 degrees MUSE SYSTEM INTERPRETATION Sinus tachycardia Occasional Premature ventricular com plexes MUSE SYSTEM Left axis deviation 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) Abnormal ECG When compared with ECG of 08-DEC-2021 16:40, Premature ventricular complexes are now Present Confirmed by MD Fernandez Danette ([id number]) on 12/10/2021 4:55:06 PM Specimen Anatomical Collection Method Collection Time Receive d Time (Source) Location / / Volume Laterality 12/09/2021 7:57 AM 2 4:55 EDT PM EDT Iker Cuevas MD ECG ORDERABLES Performing Organization Address City/State/ZIP Code Phon e Number MUSE SYSTEM (ABNORMAL) POCT Glucose (12/09/2021 7:28 AM EDT) P athologist Signature POC Glucose 263 (H) 65 - 199 [facility] mg/dL [facility] LABORATORY Comment: [...] [place] [address] (ABNORMAL) Hemoglobin A1c (12/09/2021 6:18 AM EDT) Analysis Performed At Patho logist Time Signature Hemoglobin A1C 7.4 (H) 4.3 - 5.6 [facility] [...] Mellitus, Diabetes Care 2013; 36: Suppl. 1, U60-58 Est Avg Gluc See note mg/dL HOLDEN [...] with hemoglobinopathies. Additional resources are available on [facility] ADA website. Macario HAMMOND, Ruthann J, Deysi R, et al. ??Tr anslating the A1C assay into estimated average glucose values. ??Diabetes Care 2008:31(8):3075-3107. Specimen Anatomical Collection Method Collection Time Receive d Time (Source) Location / / Volume Laterality Blood Venous Draw / 12/09/2021 6:18 AM 12/10/19 22 Unknown EDT 12:24 PM EDT Resulting Agency Comment Spec In Lab Migdalia BROWN CHEMISTRY ORDERABLES Performing Organization Address City/State/[place] [address] (ABNORMAL) Prothrombin Time (12/09/2021 6:18 AM EDT) athologist Signature PT 26.6 (H) 9.4 - 12.5 [facility] LABORATORY INR 2.3 [facility] LABORATORY [...] Migdalia BROWN HEMATOLOGY ORDERABLES Performing Organization Address City/[facility]/ZIP Code Phon e Number [address] Heparin (unfractionated) Level (12/09/2021 6:18 AM EDT) P athologist Signature Heparin UFH 0.24 IU/mL [facility] LABORATORY Comment: Heparin (anti-Xa) levels [...] Cuevas MD HEMATOLOGY ORDERABLES Performing Organization Address City/[facility]/Z[place] [address] (ABNORMAL) Differential, Automated (12/09/2021 6:18 AM EDT) Patholo gist Method Time Signature Neutrophils % 91.5 % [facility] LABORATORY Neutr Abs (ANC) 15.78 (H) 1.70 - [facility] 6.10 [facility] x10(3)/[facility] LABORATORY Lymphocytes % 2.9 % [facility] LABORATORY Lymphocytes Abs 0.5 (L) 0.9 - 3.2 [facility] x10(3)/[facility] LABORATORY Monocytes % 4.9 % [facility] LABORATORY Monocyte Abs 0.8 0.3 - 0.9 [facility] x10(3)/[facility] LABORATORY Eosinophils % 0.0 % [facility] LABORATORY Eosinophils Abs 0.0 0.0 - 0.4 [facility] x10(3)/[facility] LABORATORY Basophils % 0.2 % [facility] LABORATORY Basophils Abs 0.0 0.0 - 0.1 [facility] x10(3)/[facility] LABORATORY Immature Gran % 0.50 % [facility] [...] Organization Address City/State/[place] [address] (ABNORMAL) Hemogram (12/09/2021 6:18 AM EDT) Analysis Performed At Patho logist Time Signature WBC 17.2 (H) 4.0 - 9.5 [facility] x10(3)/[facility] [facility] LAB[facility]ORY RBC 4.32 (L) 4.58 - [facility] 5.54 [facility] x10(6)/[facility] LABORATORY Hemoglobin 12.6 (L) 13.7 - [facility] 16.[facility] g/dL [facility] LABORATORY Hematocrit 38.9 (L) 40.5 - [facility] 48.5 % [facility] LABORATORY MCV 90.0 82.9 - [facility] 93.1 [facility] LABORATORY MCH 29.2 27.5 - [facility] 32.1 pg [facility] LABORATORY MCHC 32.4 32.0 - [facility] 35.7 g/dL [facility] LABORATORY Platelets 193 145 - 357 [facility] x10(3)/[facility] LABORATORY RDWSD 50.4 (H) 36.0 - [facility] 45.0 [facility] LABORATORY RDWCV 15.2 (H) 11.4 - [facility] 13.8 % [facility] LABORATORY MPV 9.5 7.6 - 12.9 [facility] LABORATORY nRBC % Auto 0.0 % [facility] LABORATORY nRBC Abs Auto 0.000 0.000 - [facility] x10(3)/[facility] LABORATORY Specimen Anatomical Collection Method Collection Time Receive d Time (Source) Location / / Volume Laterality Blood 12/09/2021 6:18 AM 6:33 EDT AM EDT Resulting Agency Comment Spec In Lab Morgan BROWN HEMATOLOGY ORDERABLES Performing Organization Address City/State/[place] [address] Lipid Panel (Reflex Direct LDL) (12/09/2021 6:18 AM EDT) P athologist Signature Chol, Total 105 mg/dL [facility] LABORATORY Comment: Lower Risk: <200 mg/dL Average Risk: 200-239 mg/dL Higher Risk: >zz=455 mg/dL Triglycerides 133 mg/dL [facility] LABORATORY Comment: Average Risk/Lower Risk: <150 mg/dL Borderline High Risk: 150-199 mg/dL High Risk: 200-499 mg/dL Very High Risk: >ad=887 mg/dL HDL 42 mg/dL [facility] LABORATORY Comment: Males: ?? Higher Risk: <40 mg/dL Females: ?? Higher Risk: <50 mg/dL LDL Cholesterol 36 mg/dL [facility] LABORATORY Comment: Lowest Risk: <100 mg/dL Lower Risk: 100-129 mg/dL Borderline High Risk: 130-159 mg/dL High Risk: 160-189 mg/dL Very High Risk: >xw=307 mg/dL Chol/HDL Ratio 2.5 ratio [facility] LABORATORY Lipid Interpretation See Note [facility] LABORATORY Comment: Lipid management should be guided by a p atient? s ASCVD risk, goals and preferences. ACC/AHA Guidelines recommend high intens ity statin if clinical ASCVD or LDL greater than or equal to 190 mg/dL. http://Jobspotting.Everlaw/CAU-FDL-Czdzaxhpv Adults aged 40-75 with LDL 70-189 mg/dL should have their 10 year ASCVD risk estimated with the ACC/AHA ASCVD risk es timator http://tools.acc.org/FNRDI-Cdnp-Ltvtosdc r/ Statin should be discussed if risk [...] Organization Address City/State/[place] [address] TSH (12/09/2021 6:18 AM EDT) athologist Signature TSH 1.60 0.27 - 4.20 [facility] mcIU/mL [facility] LABORATORY Comment: Reference Interval (mcIU/mL): Females: ??First Trimester: 0.23-3.88 ??Second Trimester: 0.22-3.90 ??Third Trimester: 0.44-4.66 Specimen Anatomical Collection Method Collection Time Receive d Time (Source) Location / / Volume Laterality Blood 12/09/2021 6:18 AM 2 6:33 EDT AM EDT Resulting Agency Comment Spec In Lab Iker Cuevas MD CHEMISTRY ORDERABLES Performing Organization Address City/[facility]/ZIP [place] [address] Hepatic Function Panel (12/09/2021 6:18 AM EDT) athologist Signature Total Protein 7.3 6.1 - 8.0 [facility] g/dL [facility] LABORATORY Albumin 4.2 3.2 - 5.2 [facility] g/dL [facility] AST 25 0 - 39 [facility] unit/L [facility] LABOR[facility]ORY ALT 15 0 - 55 [facility] unit/L [facility] LABORATORY Alk Phos 75 40 - 130 [facility] unit/L [facility] LABORATORY Total 1.1 0.2 - 1.3 [facility] Bilirubin mg/dL [facility] LABORATORY Bili, Direct 0.2 0.0 - 0.3 [place] mg/dL [facility] LABORATORY Specimen Anatomical Collection Method Collection Time Receive d Time (Source) Location / / Volume Laterality Blood 12/09/2021 6:18 AM 2 6:33 EDT AM EDT Resulting Agency Comment Spec In Lab Iker Cuevas MD CHEMISTRY ORDERABLES Performing Organization Address City/[facility] [place] [address] (ABNORMAL) BMP w/fasting Glucose (12/09/2021 6:18 AM EDT) P athologist Signature Glucose 235 (H) 65 - 99 [facility] Fasting mg/dL [facility] LABORATORY Comment: ?Fasting* Glucose Interpretive [...] Address City/State/ZIP Code Phon e Number [address] Magnesium (12/09/2021 6:18 AM EDT) P athologist Signature Magnesium 0.81 0.69 - 1.07 [facility] mmol/L [facility] LABORATORY Specimen Anatomical Collection Method Collection Time Receive d Time (Source) Location / / Volume Laterality Blood 12/09/2021 6:18 AM 2 6:33 EDT AM EDT Resulting Agency Comment Spec In Lab Iker Cuevas MD CHEMISTRY ORDERABLES Performing Organization Address City/State/[place] [address] (ABNORMAL) Troponin (12/09/2021 6:18 AM EDT) athologist Signature Troponin-T 1.13 (H) 0.00 - [facility] 0.00 ng/mL [facility] LABORATORY Comment: The 99th percentile [...] additional sample may be indicated. Reference: Third [place] Definition of Myocardial Infarction. Journal of the [place] College of Cardiology 2012;60:1581-98 Specimen Anatomical Collection Method Collection Time Receive d Time (Source) Location / / Volume Laterality Blood 12/09/2021 6:18 AM 6:33 EDT AM EDT Resulting Agency Comment Spec In Lab Iker Cuevas MD CHEMISTRY ORDERABLES Performing Organization Address City/State/ZIP Code Phon e Number [place] [phone] HOSPITAL LABORATORY Drive XR Chest One View [...] have questions please contact the health career based intervention coordinator that requested your imaging first. ? [...] have questions please contact the health career based intervention coordinator that requested your imaging first. Amber Sanches MD IMG DX ORDERABLES (ABNORMAL) BLOOD GAS 2 ARTERIAL (12/09/2021 5:14 AM EDT) Analysis Performed At Path logis Time Signature pH Art 7.43 7.35 - [facility] 7.45 [facility] LABORATORY pCO2 Art 36 35 - 45 [facility] LABORATORY pO2 Art 67 (L) 85 - 104 [facility] LABORATORY HCO3 Art 23.4 20.0 - [facility] 26.0 [facility] mmol/L [facility] LABORATORY BE Art -0.9 -3.0 - 3.0 [facility] mmol/L [facility] LABORATORY Hgb Blood Gas 13.2 (L) 13.7 - [facility] 16.5 g/dL [facility] LABORATORY O2HB Art 91.3 (L) 94.0 - [facility] 97.0 % [facility] LABORATORY COHB Art 0.4 % [facility] LAB[facility]ORY FIO2 Art 35 % [facility] LABORATORY Flow Art 8.0 LPM [facility] LABORATORY PF Ratio Art 191 [facility] LABORATORY Specimen Anatomical Collection Method Collection Time Receive d Time (Source) Location / / Volume Laterality Blood 12/09/2021 5:14 AM 5:14 EDT AM EDT Iker Cuevas MD CHEMISTRY ORDERABLES Performing Organization Address City/State/[place] [address] POCT Glucose (12/09/2021 4:46 AM EDT) athologist Signature POC Glucose 198 65 - 199 [facility] mg/dL [facility] LABORATORY Comment: [...] [place] [address] (ABNORMAL) POCT Glucose (12/09/2021 3:01 AM EDT) athologist Signature POC Glucose 225 (H) 65 - 199 [facility] mg/dL [facility] LABORATORY Comment: [...] [place] [address] (ABNORMAL) POCT Glucose (12/08/2021 10:55 PM EDT) athologist Signature POC Glucose 327 (H) 65 - 199 [facility] mg/dL [facility] LABORATORY Comment: [...] [place] [address] Heparin (unfractionated) Level (12/08/2021 10:03 PM EDT) P athologist Signature Heparin UFH 0.18 IU/mL [facility] LABORATORY Comment: Heparin (anti-Xa) levels [...] Organization Address City/State/[place] [address] (ABNORMAL) Troponin (12/08/2021 10:03 PM EDT) athologist Signature Troponin-T 0.92 (H) 0.00 - [facility] 0.00 ng/mL [facility] LABORATORY Comment: The 99th percentile [...] additional sample may be indicated. Reference: Third [place] Definition of Myocardial Infarction. Journal of the [place] College of Cardiology 2012;60:1581-98 Specimen Anatomical Collection Method Collection Time Receive d Time (Source) Location / / Volume Laterality Blood 12/08/2021 10:03 12/08/2021 PM EDT 10:31 PM EDT Resulting Agency Comment Spec In Lab Iker Cuevas MD CHEMISTRY ORDERABLES Performing Organization Address City/[facility]/[place] [address] (ABNORMAL) POCT Glucose (12/08/2021 8:22 PM EDT) athologist Signature POC Glucose 429 (H) 65 - 199 [facility] mg/dL [facility] LABORATORY Comment: [...] City/[facility]/[place] [address] (ABNORMAL) POCT Glucose (12/08/2021 7:06 PM EDT) P athologist Signature POC Glucose 442 (H) 65 - 199 [facility] mg/dL [facility] LABORATORY Comment: [...] City/[facility]/[place] [address] Magnesium (12/08/2021 6:02 PM EDT) athologist Signature Magnesium 0.86 0.69 - 1.07 [facility] mmol/L [facility] LABORATORY Specimen Anatomical Collection Method Collection Time Receive d Time (Source) Location / / Volume Laterality Blood 12/08/2021 6:02 PM 6:36 EDT PM EDT Resulting Agency Comment Spec In Lab Iker Cuevas MD CHEMISTRY ORDERABLES Performing Organization Address City/State/ZIP Code Phon e Number [address] (ABNORMAL) Basic Metabolic Panel (non-fasting) (12/08/2021 6:02 PM EDT) athologist Signature Glucose Lvl 392 (H) 65 - 199 [facility] mg/dL [facility] LABORATORY Comment: [...] [place] [address] (ABNORMAL) Differential, Automated (12/08/2021 6:02 PM EDT) [facility] gist Method Time Signature Neutrophils % 89.5 % [facility] LABORATORY Neutr Abs (ANC) 13.97 (H) 1.70 - [facility] 6.10 [facility] x10(3)/[facility] LABORATORY Lymphocytes % 3.7 % [facility] LABORATORY Lymphocytes Abs 0.6 (L) 0.9 - 3.2 [facility] x10(3)/[facility] LABORATORY Monocytes % 6.1 % [facility] LABORATORY Monocyte Abs 1.0 (H) 0.3 - 0.9 [facility] x10(3)/[facility] LABORATORY Eosinophils % 0.0 % [facility] LABORATORY Eosinophils Abs 0.0 0.0 - 0.4 [facility] x10(3)/[facility] LABORATORY Basophils % 0.2 % [facility] LABORATORY Basophils Abs 0.0 0.0 - 0.1 [facility] x10(3)/[facility] LABORATORY Immature Gran % 0.50 % [facility] [...] Organization Address City/State/[place] [address] (ABNORMAL) Hemogram (12/08/2021 6:02 PM EDT) Analysis Performed At Patho logist Time Signature WBC 15.6 (H) 4.0 - 9.5 [facility] x[facility](3[facility] LABORATORY RBC 4.05 (L) 4.58 - [facility] 5.54 [facility] x10(6)/[facility] LABORATORY Hemoglobin 11.8 (L) 13.7 - [facility] 16.5 g/dL [facility] LABORATORY Hematocrit 35.8 (L) 40.5 - [facility] 48.5 % [facility] LABORATORY MCV 88.4 82.9 - [facility].1 [facility] LABORATORY MCH 29.1 27.5 - [facility] 32.1 pg [facility] LABORATORY MCHC 33.0 32.0 - [facility] 35.7 g/dL [facility] LABORATORY Platelets 178 145 - 357 [facility] x10(3)/[facility] LABORATORY RDWSD 49.3 (H) 36.0 - [facility] 45.0 [facility] LABORATORY RDWCV 15.1 (H) 11.4 - [facility] 13.8 % [facility] LABORATORY MPV 10.4 7.6 - 12.9 [facility] LABORATORY nRBC % Auto 0.0 % [facility] LABORATORY nRBC Abs Auto 0.000 0.000 - [place] 0.000 [facility] x10(3)/[facility] LABORATORY Specimen Anatomical Collection Method Collection Time Receive d Time (Source) Location / / Volume Laterality Blood 12/08/2021 6:02 PM 2 6:36 EDT PM EDT Resulting Agency Comment Spec In Lab Morgan BROWN HEMATOLOGY ORDERABLES Performing Organization Address City/State/ZIP Code Phon [place] [address] (ABNORMAL) Troponin (12/08/2021 6:02 PM EDT) athologist Signature Troponin-T 0.89 (H) 0.00 - [facility] 0.00 ng/mL [facility] LABORATORY Comment: The 99th percentile [...] additional sample may be indicated. Reference: Third [place] Definition of Myocardial Infarction. Journal of the [place] College of Cardiology 2012;60:1581-98 Specimen Anatomical Collection Method Collection Time Receive d Time (Source) Location / / Volume Laterality Blood 12/08/2021 6:02 PM 2 6:36 EDT PM EDT Resulting Agency Comment Spec In Lab Iker Cuevas MD CHEMISTRY ORDERABLES Performing Organization Address City/State/ZIP [place] [address] COVID-19 PCR (12/08/2021 5:00 PM EDT) [facility] Method Time Signature SARS-CoV-2 Not Detected Not Detected [facility] RNA PCR [facility] LABORATORY Comment: This result should be interpreted [...] using the Simplexa COVID-19 Direct Assay by TTS Pharmajoi marcum as authorized by the FDA issued [...] Department of Pathology and Laboratory Medicine at [facility] [place] [facility], certified under the Clinical Laboratory Improvement [...] clinical management guidance information are available at [facility] Coronavirus Disease 2019 (COVID-19) webpage under Information fo r Healthcare Professionals (https://www.cdc.gov/coronavirus/2019-nc ov/hcp/index.html). Additional information about this and ot her EUA tests can be found in provider and patient fact sheets at the following FDA website: https://www.fda.gov/medical-devices/ifrysbmxzjy-paytxiv-3480-mpfpp-89-zjvzpceta- myp-pezhdvzcubeywg-xpqbdnv-devices/vrfup-hwiractajpl-omtc SARS-CoV-2 Source MACHINIST MATE Swab [facility] LABORATORY Specimen (Source) Anatomical Collection Method Collection Time Re ceived Time Location / / Volume Laterality Nasopharyngeal Swab 12/08/2021 5:00 12/08 PM EDT 6:03 PM EDT Comment: Symptoms->Surveillance Resulting Agency Comment Spec In Lab Iker Cuevas MD MICROBIOLOGY - GENERAL ORDER [place] Performing Organization Address City/[facility] Phon e Number [place] [phone] HOSPITAL LABORATORY Drive EKG 12 Lead (12/08/2021 4:40 PM EDT) Component Value Ref Range Test Analysis Performed Pathologis t Method Time At Signature Ventricular rate 78 BPM MUSE SYSTEM Atrial Rate 78 BPM MUSE SYSTEM P-R Interval 152 ms MUSE SYSTEM QRS Duration 96 ms MUSE SYSTEM Q-T Interval 396 ms MUSE SYSTEM QTC Calculated 451 ms MUSE SYSTEM (Bezet) Calculated P Calvin 44 degrees MUSE SYSTEM Calculated R Calvin -31 degrees MUSE SYSTEM Calculated T Calvin 124 degrees MUSE SYSTEM INTERPRETATION Normal sinus [...] Cuevas MD ECG ORDERABLES Performing Organization Address City/[facility] Phon e Number MUSE SYSTEM (ABNORMAL) POCT Glucose (12/08/2021 4:34 PM EDT) P athologist Signature POC Glucose 400 (H) 65 - 199 [facility] mg/dL [facility] LABORATORY Comment: [...] Code Phon e Number [facility] [place] [address] documented in this encounter [...] Coronary atherosclerosis of unspecified type of vessel, [place] or graft Cardiomyopathy, ischemic Other specified forms [...] DO NOT CRUSH OR OPEN, Routine 1230 ([facility] Unhold - Provider: Admin Adt) polyethylene glycoL [...] oral geL(Linked Group 2) 0805 ([facility] Hold - Provider: Admin Adt - Reason: Transfer to a Procedural area)1230 ([facility] Unhold - Provider: Admin Adt) 15-30 g [...] Routine niCARdipine (Cardene) (100 mcg/mL) dilution (MAIL DELIVERY SUPERVISOR) (CANCELED) 1030 (Given - Provider: Vitaliy [...] mg per tablet 1 tab let 0805 ([facility] Hold - Provider: Admin Adt - Reason: Transfer to a Procedural area)1230 ([facility] Unhold - Provider: Admin Adt) 1 tablet, Oral, 2 TIMES DAILY PRN, Start ing on Wed12/09/21 at 1628, Until Wed12/12/21 at 1312, Constipation, Routine sodium chloride 0.9 % (flush) (BD PosiFlush Normal Sean ine 0.9) flush 5-20 mL 0805 ([facility] Hold [...] episode. & nbsp; For persistent hypoglycemia, con rubber attacher longer-acting treatment for the duration of the [...]
Routine documented in this encounter Care Teams Sheep And Wheat Farmer Relationship Specialty Start Date End Date Lovely Vicente MD PCP - General 04/16/[address] [place] [address] documented as of this encounter
--- OUTSIDE RECORDS SUMMARY | 2022-04-13 08:07 | XMS_ITS | Encounter Summary ---
:1945 [place] [address] Care Team Providers Name Role Phone Lovely Vicente MD Primary Care Provider Encounter Details Date Type Department Care Team Description 12/30/2021 Notes Only [facility] [place] [address] Social History Tobacco Use Types Packs/Day [...] Dolan MD [facility] [address] [place] [address] (Wo rk) 05/28/2022 Laboratory Appointment Lab 05/28/2022 Office Visit Cardiology Zulma Dolan MD [facility] [place] [address] Liz Poole PA [facility] [place] [address] 06/10/2022 Office Visit Dermatology Laura Scherer MD [facility] [address] [place], [place] [address] (Wo rk) documented as of this encounter Visit Diagnoses Not on filedocumented in this encounter Care Teams Support Analyst Relationship Specialty Start Date End Date Lovely Vicente MD PCP - General 04/16/[address] [place] [address] documented as of this encounter
--- OUTSIDE RECORDS SUMMARY | 2022-04-13 08:07 | XMS_ITS | Encounter Summary ---
:1945 Author Organization [facility] [place] [address] Care Team Providers Name Role Phone Lovely Vicente MD Primary Care Provider Reason for Visit Reason Onset Date Comments Advice Only 01/28/2022 Encounter Details Date Type Department Care Team Description 01/28/2022 Telephone Cardiology at [facility] Chitra Angela, gy[place] [phone] Social History Tobacco Use Types Packs/Day [...] assists patient with medications. Number for labor standards director scheduling given and she will call them to verify this information Meds reviewed. As per our form from labor standards director Eliquis hold for 48 hours prior. Pt [...] Dolan MD [facility] [address] [place], [place] [address] (Wo rk) 05/28/2022 Laboratory Appointment Lab 05/28/2022 Office Visit Cardiology Zulma Dolan MD [facility] [place] [address] Liz Poole PA [facility] [place] [address] 06/10/2022 Office Visit Dermatology Laura Scherer MD [facility] [address], [place] [address] (Wo rk) documented as of this encounter Visit Diagnoses Not on filedocumented in this encounter Care Teams Security System Installer Relationship Specialty Start Date End Date Lovely Vicente MD PCP - General 04/16/[address] [place] [address] documented as of this encounter
--- OUTSIDE RECORDS SUMMARY | 2022-04-13 08:07 | XMS_ITS | Encounter Summary ---
:1945 Author Organization [facility] Address [facility] [place] [address] Care Team Providers Name Role Phone Lovely Vicente MD Primary Care Provider Reason for Visit Auth/Cert Specialty Diagnoses / Procedures Referred By Contact Refer red To Contact Diagnoses ASCVD (arteriosclerotic cardiovascular disease) [I25.10] Vitaliy Nobles MD [facility] Procedures PRO PERC TRLUML CORONARY STENT W/ANGIO ONE ART/BRANCH CARDIAC CATHETERIZATION STENT PLACEMENT-SINGLE MAJOR CORONARY ARTERY OR BRANCH [facility] [place] [address] Referral ID Status Reason Start Date Expiration Date Visits Requ ested Visits Authorized [id number] 1 1 Encounter Details Date Type Department Care Team Description 01/30/2022 Hospital Encounter Short Stay Unit at Vitaliy Nobles, CVD (arteriosclerotic cardiovascular disease); Barbara Blue MD 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 ASHD (arteriosclerotic heart disease) [facility] [address] [id number] [phone] Social History Tobacco Use Types Packs/Day Years [...] and Clopidogrel. Please follow up with your pet stylist in the next 4-6 weeks. We have [...] Murray RN - 01/30/2022 4:54 PM EDT [facility] Short Stay Unit Discharge Note All relevant [...] PCI presenting for staged PCI to [facility]. The pt states he [...] PCI presenting for staged PCI to [facility]. 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 I had referred him to cardiac rehab at [facility] last month per HF team. He was waiting until this intervention before starting the program. Reviewed managing angina /use of sl nitroglycerin. Given parameters for home exercise. 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 We discussed short walks several times per day. Will send [facility] his discharge summary from this admission. The patient should be contacted by the Program within 1- 2 weeks from discharge. Brief Op Note - Vitaliy Nobles MD - 01/30/2022 10:19 AM EDT Images from the original note were not included. [facility] [place] [address] [address] CORONARY ANGIOGRAM AND PERCUTANEOUS CORONARY INTERVENTION REPORT Patient: Don Fatima : 1945 MR number: [id number] Date of Service: 01/30/2022 Accounts Administrator: Vitaliy Nobles MD Fellow: KEYON Elizabeth [...] a long 2.0 x 26 mm HARDEEP [place] TUCKER stent and positioned it at the [...] using a 2.0 x 26 mm HARDEEP [place] TUCKER stent. This completes the revascularization ofall [...] Dolan MD [facility] er [place] 0[address] (Wo rk) 05/28/2022 Laboratory Appointment Lab 05/28/2022 Office Visit Cardiology Zulma Dolan MD [facility] [place] [address] Liz Poole PA [facility] [place] [address] 06/10/2022 Office Visit Dermatology Laura Scherer MD [facility] ER DR [address] [place], [place] [address] (Wo rk) Scheduled Orders Name [...] LABORATORY Neutr Abs (ANC) 3.96 1.70 - [facility] 6.10 [facility] x10(3)/[facility] LABORATORY Lymphocytes % 16.3 % [facility] LABORATORY Lymphocytes Abs 0.9 0.9 - 3.2 [facility] x10(3)/[facility] LABORATORY Monocytes % 10.0 % [facility] LABORATORY Monocyte Abs 0.6 0.3 - 0.9 [facility] x10(3)/[facility] LABORATORY Eosinophils % 0.5 % [facility] LABORATORY Eosinophils Abs 0.0 0.0 - 0.4 [facility] x10(3)/[facility] LABORATORY Basophils % 0.5 % [facility] LABORATORY Basophils Abs 0.0 0.0 - 0.1 [facility] x10(3)/[facility] LABORATORY Immature Gran % 0.90 [...] Gran Abs 0.05 (H) 0.00 - 0.04 x10(3)/[facility] LABORATORY Specimen Anatomical Collection Method Collection Time Receive d Time (Source) Location / / Volume Laterality Blood 01/30/2022 2:12 PM 2 2:37 EDT PM EDT Resulting Agency Comment Spec In Lab Eddi Elizabeth Jr., MD HEMATOLOGY ORDERABLES Performing Organization Address City/State/Z[place] [address] (ABNORMAL) Hemogram (01/30/2022 2:12 PM EDT) Analysis Performed At Patho logist Time Signature WBC 5.5 4.0 - 9.5 [facility] x10(3)/[facility] LABORATORY RBC 4.30 (L) 4.58 - [place] 5.54 [facility] x10(6)/[facility] LABORATORY Hemoglobin 12.7 (L) 13.7 - [place] 16.5 g/dL [facility] LABORATORY Hematocrit 39.4 (L) 40.5 - [place] 48.5 % [facility] LABORATORY MCV 91.6 82.9 - [facility] 93.1 [facility] LABORATORY MCH 29.5 27.5 - [place] [facility]HAOSU 32.1 pg [facility] LABORATORY MCHC 32.2 32.0 - [place] 35.7 g/dL [facility] LABORATORY Platelets 172 145 - 357 [facility] x10(3)/[facility] LABORATORY RDWSD 54.5 (H) 36.0 - [facility] 45.0 [facility] LABORATORY RDWCV 16.4 (H) 11.4 - [facility] 13.8 % [facility] LABORATORY MPV 9.2 7.6 - 12.9 [facility] LABORATORY nRBC % Auto 0.0 % [facility] LABORATORY nRBC Abs Auto 0.000 0.000 - [facility] 0.000 [facility] x10(3)/[facility] LABORATORY Specimen Anatomical Collection Method Collection Time Receive d Time (Source) Location / / Volume Laterality Blood 01/30/2022 2:12 PM 2 2:37 EDT PM EDT Resulting Agency Comment Spec In Lab Eddi Elizabeth Jr., MD HEMATOLOGY ORDERABLES Performing Organization Address City/State/[place] [address] (ABNORMAL) Basic Metabolic Panel (non-fasting) (01/30/2022 2:12 PM EDT) P athologist Signature Glucose Lvl 163 65 - 199 [facility] mg/dL [facility] LABORATORY Comment: Diabetes: >=200 mg/dL plus symp toms BUN 30 (H) 10 - 20 mg/dL [facility] LABORATORY Creatinine 1.47 0.80 - 1.50 mg/dL [facility] OCK [facility] LABORATORY Sodium 140 135 - [...] City/State/[place] [address] POCT Glucose (01/30/2022 1:41 PM EDT) athologist Signature POC Glucose 148 65 - 199 [facility] mg/dL [facility] LABORATORY [...] [facility]/ZIP Code Phon e Number [address] POCT Glucose (01/30/2022 10:48 AM EDT) P athologist Signature POC Glucose 193 65 - 199 [facility] mg/dL [facility] LABORATORY Comment: Supplemental ranges: <140 mg/dL before meals <180 mg/dL all other times of the day Specimen Anatomical Collection Method Collection Time Receive d Time (Source) Location / / Volume Laterality Blood 01/30/2022 10:48 01/30/2022 AM EDT 10:48 AM EDT Vitaliy Sandra Nobles MD POINT OF CARE TEST ORDERABLE S Performing Organization Address [facility] [place] [address] EKG 12 Lead (01/30/2022 10:33 AM EDT) Component Value Ref Range Test Analysis Performed Pathologis t Method Time At Signature Ventricular rate 64 BPM MUSE SYSTEM Atrial Rate 64 BPM MUSE SYSTEM P-R Interval 162 ms MUSE SYSTEM QRS Duration 94 ms MUSE SYSTEM Q-T Interval 422 ms MUSE SYSTEM QTC Calculated 435 ms MUSE SYSTEM (Bezet) Calculated P Kirby 41 degrees MUSE SYSTEM Calculated R Kirby -27 degrees MUSE SYSTEM Calculated T Kirby 104 degrees MUSE SYSTEM INTERPRETATION Normal sinus rhythm MUSE SYSTEM Anterolateral infarct (cited on or before 09-DEC-2021) Abnormal ECG When compared with ECG of 10-DEC-2021 11:17, No significant change was found Confirmed by Gary Perez ([id number]) on 01/30/2022 5:57:5 2 PM Specimen Anatomical [...] Laterality Volume Narrative 01/30/2022 2:09 PM EDT ?[facility] ? Cardiac Cathete rization/Intervention Report ? Patient Name: Don Fatima. ? Procedure Date: 01/30/2022 ? A #: [id number] ? Primary Physician: Nobles, Vitaliy P ? Case #: [id number] ? File Name: [id number] ? Catheterization Order Number: [id number] ? [facility] ? Final Report [place], [place] ? Patient Name: ? Don Mccollum. Stewa rt ? ID#: ?[id number] ? : ?1945 ? Procedure Date: ? [...] ?designated as ASA Class III. Th e [facility] clinical frailty scale is 5: [...] procedure was Urgent. The indication for ?the scientific laboratory supervisor visit is stable kn own CAD. Chest pain symptom assessment ?was: Typical Angina. ? Technique: ?A 6 SLFr sheath was inserted in the right radial artery utilizing the ?Seldinger technique. The right coronary artery was injected utilizing a ?IR 2.0 catheter. Coronary stent insertion was performed and the equipment ?utilized will be described in [facility] intervention summary section. 9,000 ?units [...] guiding catheter an d a 3.[address] ??20 Mhz ?using Manual pullback. ??Imagin [...] A premounted 2.00 x 26 mm Hardeep [place] (TUCKER) ? was deployed wi a maximum [...] Wedelivered along 2.0 x 26 mm HARDEEP [place] ? TUCKER stent and p ositioned it [...] dose administered prior to arrival in the scientific laboratory supervisor. ?Recommended anti-platelet/anti- thrombotic regimen: ?Continue [...] using a 2.0 x 26 mm HARDEEP [place] TUCKER stent. ?This completes the revasculariz ation [...] Don Fatima Procedure Date: 01/30/2022 A #: [id number] Primary Physician: Vitaliy Nobles Case #: [id number] File Name: [id number] Catheterization Order Number: [id number] [facility] Final Report [place], [place] Patient Name: Don Fatima ID#: [...] Insertion * Peripheral Intravascular Ultrasound History Don Fatmia is a 76 year old man. He [...] e was Urgent. The indication for the scientific laboratory supervisor visit is stable known CAD. Chest pain [...] 1.5 guiding catheter and a 3.[address] 20 Mhz using Manual pullback. Imaging [...] atmospheres. A premounted 2.00 x 26 mm [place] (TUCKER) was deployed with a maximum inflation [...] along 2. 0 x 26 mm HARDEEP [place] TUCKER stent and positioned it at the [...] administered prior t o arrival in the scientific laboratory supervisor. Recommended anti-platelet/anti-thrombot ic regimen: Continue aspirin 81 [...] require modification of this regimen. Consult [facility] [...] using a 2.0 x 26 mm HARDEEP [place] TUCKER stent. This completes the revascularization of [...] POC Glucose 212 (H) 65 - 199 [facility] mg/dL [facility] LABORATORY Comment: Supplemental ranges: <140 mg/dL before meals <180 mg/dL all other times of the day Specimen Anatomical Collection Method Collection Time Receive d Time (Source) Location / / Volume Laterality Blood 01/30/2022 9:04 AM 2 9:04 EDT AM EDT Vitaliy Nobles MD POINT OF CARE TEST ORDERABLE S Performing Organization Address City/State/[place] [address] (ABNORMAL) POCT Glucose (01/30/2022 8:10 AM EDT) athologist Signature POC Glucose 224 (H) 65 - 199 [facility] mg/dL [facility] LABOR[facility] Comment: Supplemental ranges: <140 mg/dL before meals <180 mg/dL all other times of the day Specimen Anatomical Collection Method Collection Time Receive d Time (Source) Location / / Volume Laterality Blood 01/30/2022 8:10 AM 2 8:10 EDT AM EDT Vitaliy Nobles MD POINT OF CARE TEST ORDERABLE S Performing Organization Address City/State/[place] [address] documented in this encounter Visit Diagnoses Diagnosis ASCVD (arteriosclerotic cardiovascular d isease) Unspecified cardiovascular disease 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 ASHD (arteriosclerotic heart disease) Coronary atherosclerosis of unspecified type of vessel, quileute or graft ASCVD (arteriosclerotic cardiovascular d isease) Unspecified cardiovascular disease documented in this encounter Admitting Diagnoses Diagnosis CAD (coronary artery disease) Coronary atherosclerosis of unspecified type of vessel, quileute or graft documented in this encounter Administered [...] Procedure), Routine niCARdipine (Cardene) (100 mcg/mL) dilution (SENIOR ENERGY TRADER) (CANCELED ) 0927 (Given - Provider: Vitaliy [...] (Intra-Procedure) documented in this encounter Care Teams Grill Associate Relationship Specialty Start Date End Date Lovely Vicente MD PCP - General 04/16/[address] [place] [address] documented as of this encounter
--- OUTSIDE RECORDS SUMMARY | 2022-04-13 08:07 | XMS_ITS | Encounter Summary ---
:1945 Author Organization [facility] [place] [address] Care Team Providers Name Role Phone Lovely Vicente MD Primary Care Provider Encounter Details Date Type Department Care Team Description 01/28/2022 Orders Only Washing Tub Operator Zulma Finch ASCVD (art eriosclerotic [facility] cardiovascular disease) [facility] [place] [address] [place], [place] [phone] (Work) [phone] Social History Tobacco Use Types Packs/Day Years [...] Dolan MD [facility] [address] [place] [id number] (Wo rk) 05/28/2022 Laboratory Appointment Lab 05/28/2022 Office Visit Cardiology Zulma Dolan [place] [id number] Liz Poole PA [facility] [place] [address] 06/10/2022 Office Visit Dermatology Laura Scherer MD [facility] DR [address] [place], [place] 0[address] (Wo rk) documented as of this encounter Results (ABNORMAL) Basic Metabolic Panel (non-fasting) (01/30/2022 7:19 AM EDT) athologist Signature Glucose Lvl 237 (H) 65 - 199 [facility] mg/dL [facility] LABORATORY Comment: [...] Organization Address City/State/[place] [address] documented in this encounter Visit Diagnoses Diagnosis ASCVD (arteriosclerotic cardiovascular d isease) Unspecified cardiovascular disease documented in this encounter Care Teams Jet Inspector Relationship Specialty Start Date End Date Lovely Vicente MD PCP - General 04/16/[address] [place] [address] documented as of this encounter
--- OUTSIDE RECORDS SUMMARY | 2022-04-13 08:07 | XMS_ITS | Encounter Summary ---
:1945 Author Organization [place] [address] Care Team Providers Name Role Phone Lovely Vicente MD Primary Care Provider Reason for Visit Reason Onset Date Comments Medication Refill 12/12/2021 Torsemide Encounter Details Date Type Department Care Team Description 12/12/2021 Refill Cardiology at [facility] Janneth Padilla, Medication Refill [facility] STEPHANIE (Torsemide) [place] [phone] CARDIOLOGY DEPT. [place], [place] 0[address] (Wo rk) Social History Tobacco [...] MD [facility] [place], [place] [address] (Wo rk) 05/28/2022 Laboratory Appointment Lab 05/28/2022 Office Visit Cardiology Zulma [place]olan [place] [address] Liz Poole PA [facility] [place] [address] 06/10/2022 Office Visit Dermatology Laura Scherer MD [facility] ER DR [address] [place], [place] 0375 (Wo rk) documented as of this encounter Visit Diagnoses Diagnosis Chronic systolic heart failure documented in this encounter Care Teams Farmworker [employer] Relationship Specialty Start Date End Date Lovely Vicente MD PCP - General 04/16/[address] [place] [address] documented as of this encounter
--- OUTSIDE RECORDS SUMMARY | 2022-04-13 08:07 | XMS_ITS | Encounter Summary ---
:1945 Author Organization [facility] [place] [address] Care Team Providers Name Role Phone Lovely Vicente MD Primary Care Provider Encounter Details Date Type Department Care Team Description 12/12/2021 Telephone Cardiology at [facility] [place] [address] Social History Tobacco Use Types Packs/Day [...] - 12/12/2021 11:36 AM EDT RTC to [employer] regarding pharmacists questions as to whether the [...] Dolan MD [facility] [address] [place] 0375 (Wo rk) 05/28/2022 Laboratory Appointment Lab 05/28/2022 Office Visit Cardiology Zulma Dolan MD [facility] [place] [address] Liz Poole PA [facility] [place] [address] 06/10/2022 Office Visit Dermatology Laura Scherer MD [facility] DR [address] [place], [place] 0375 (Wo rk) documented as of this encounter Visit Diagnoses Not on filedocumented in this encounter Care Teams [employer] Consultant Relationship Specialty Start Date End Date Lovely Vicente MD PCP - General 04/16/[address] [place] [address] documented as of this encounter
--- OUTSIDE RECORDS SUMMARY | 2022-04-13 08:07 | XMS_ITS | Encounter Summary ---
:1945 Author Organization [facility] [place] [address] Care Team Providers Name Role Phone Lovely Vicente MD Primary Care Provider Encounter Details Date Type Department Care Team Description 12/15/2021 Telephone Cardiology at [facility] Barbara Mera, [place] [address] Social History Tobacco Use Types Packs/Day [...] Dolan MD [facility] [place], [place] 0[address] (Wo rk) 05/28/2022 Laboratory Appointment Lab 05/28/2022 Office Visit Cardiology Zulma Dolan MD [facility] [place] [address] Liz Poole PA [facility] [place] [address] 06/10/2022 Office Visit Dermatology Laura Scherer MD [facility] [address] [place], [place] 0[address] (Wo rk) documented as of this encounter Visit Diagnoses Not on filedocumented in this encounter Care Teams Corporate Development Manager Relationship Specialty Start Date End Date Lovely Vicente MD PCP - General 04/16/15 [facility] [address] [place] [address] documented as of this encounter
--- OUTSIDE RECORDS SUMMARY | 2022-04-13 08:07 | XMS_ITS | Encounter Summary ---
:1945 Author Organization [facility] [place] [address] Care Team Providers Name Role Phone Lovely Vicente MD Primary Care Provider Encounter Details Date Type Department Care Team Description 12/24/2021 Orders Only News Production Supervisor Zulma Finch ASCVD (art eriosclerotic [facility] cardiovascular disease) [facility] [address] [place], [place] [phone] (Work) [phone] Social History Tobacco Use Types Packs/Day Years [...] MD [facility] [address] [place] [address] (Wo rk) 05/28/2022 Laboratory Appointment Lab 05/28/2022 Office Visit Cardiology Zulma Dolan MD [facility] [place] [address] Liz Poole PA [facility] [place] [address] 06/10/2022 Office Visit Dermatology Laura Scherer MD [facility] [address] [place], [place] 0[address] (Wo rk) documented as of this encounter Visit Diagnoses Diagnosis ASCVD (arteriosclerotic cardiovascular d isease) Unspecified cardiovascular disease documented in this encounter Care Teams Client Technologies Specialist Relationship Specialty Start Date End Date Lovely Vicente MD PCP - General 04/16/[address] [place] [address] documented as of this encounter
--- OUTSIDE RECORDS SUMMARY | 2022-04-13 08:07 | XMS_ITS | Encounter Summary ---
:1945 Author Organization [facility] [place] [address] Care Team Providers Name Role Phone Lovely Vicente MD Primary Care Provider Encounter Details Date Type Department Care Team Description 12/25/2021 Laboratory Appointment Lab 3L [facility] [place] [phone] Social History Tobacco Use Types Packs/Day Years [...] MD [facility] er [place], [place] [address] (Wo rk) 05/28/2022 Laboratory Appointment Lab 05/28/2022 Office Visit Cardiology Zulma Dolan MD [facility] [place] [address] Liz Poole PA [facility] [place] [address] 06/10/2022 Office Visit Dermatology Laura Scherer MD [facility] [address] [place] [address] (Wo rk) documented as of this encounter [...] (ABNORMAL) Differential, Automated (12/25/2021 7:46 AM EDT) [facility] gist Method Time Signature Neutrophils % 82.6 % [facility] Neutr Abs (ANC) 9.37 (H) 1.70 - [facility] 6.10 [facility] x10(3)/[facility] LABORATORY Lymphocytes % 7.1 % [facility] Lymphocytes Abs 0.8 (L) 0.9 - 3.[address] [facility] x10(3)/[facility] LABORATORY Monocytes % 8.8 % [facility] Monocyte Abs 1.0 (H) 0.3 - 0.[address] [facility] x10(3)/[facility] LABORATORY Eosinophils % 0.4 % [facility] Eosinophils Abs 0.0 0.0 - 0.[address] [facility] x10(3)/[facility] LABORATORY Basophils % 0.4 % [facility] Basophils Abs 0.0 0.0 - 0.[address] [facility] x10(3)/[facility] LABORATORY Immature Gran [...] Organization Address City/State/ZIP Code Phon e Number [place] [phone] HOSPITAL LAB[address] (ABNORMAL) Hemogram (12/25/2021 7:46 AM EDT) Analysis Performed At Patho logist Time Signature WBC 11.4 (H) 4.0 - 9.[address] [facility] x10(3)/[facility] LABORATORY RBC 4.23 (L) 4.58 - [facility] 5.54 [facility] x10(6)/[facility] LABORATORY Hemoglobin 12.3 (L) 13.7 - [facility] 16.5 g/dL [facility] Hematocrit 37.7 (L) 40.5 - [facility] 48.5 % [facility] MCV 89.1 82.9 - [facility] 93.1 [facility] LABORATORY MCH 29.1 27.5 - [place] [facility] 32.1 pg [facility] MCHC 32.6 32.0 [facility] 35.7 g/dL [facility] Platelets 215 145 - [address] [facility] x10(3)/[facility] LABORATORY RDWSD 49.8 (H) 36.0 - [place] [facility] 45.0 [facility] RDWCV 15.2 (H) 11.4 - [facility] 13.8 % [facility] MPV 9.2 7.6 - 12.9 [facility] LABORATORY nRBC % Auto 0.0 % [facility] nRBC Abs Auto 0.000 0.000 - [facility] 0.000 [facility] x10(3)/[facility] LABORATORY Specimen Anatomical Collection Method Collection Time Receive d Time (Source) Location / / Volume Laterality Blood 12/25/2021 7:46 AM 8:01 EDT AM EDT Resulting Agency Comment Spec In Lab Liz BROWN HEMATOLOGY ORDERABLES Performing Organization Address City/State/[place] [address] (ABNORMAL) Basic Metabolic Panel (non-fasting) (12/25/2021 7:46 AM EDT) P athologist Signature Glucose Lvl 272 (H) 65 - [address] [facility] mg/dL [facility] Comment: Diabetes: >=200 mg/dL plus symp toms BUN 62 (H) 10 - 20 mg/dL [facility] Creatinine 1.81 (H) 0.80 [...] Chloride 95 (L) 98 - 107 mmol/L [facility] CO2 28 22 - 31 mmol/L [facility] Anion Gap 11 5 - 15 mmol/L [facility] Calcium 9.4 8.5 - 10.5 mg/dL [facility] Estimated GFR 36 (L) >=60 mL/min/1.73 m?? [facility] [...] Plunkett MD CHEMISTRY ORDERABLES Performing Organization Address City/[facility]/[place] [address] (ABNORMAL) pro-Brain Natriuretic Peptide (12/25/2021 7:46 AM EDT) P athologist Signature ProBNP 1,380 (H) <=124 [facility] pg/mL [facility] Specimen Anatomical Collection Method Collection Time Receive d Time (Source) Location / / Volume Laterality Blood 12/25/2021 7:46 AM 2 8:01 EDT AM EDT Resulting Agency Comment Spec In Lab Zulma Plunkett MD CHEMISTRY ORDERABLES Performing Organization Address City/[facility]/ZIP [facility] [place] [address] documented in this encounter Visit Diagnoses Diagnosis Chronic systolic heart failure documented in this encounter Care Teams Disease Management Nurse Relationship Specialty Start Date End Date Lovely Vicente MD PCP - General 04/16/[address] [place] [address] documented as of this encounter
--- OUTSIDE RECORDS SUMMARY | 2022-04-13 08:08 | XMS_ITS | Encounter Summary ---
:1945 Author Organization [facility] [place] [address] Care Team Providers Name Role Phone Lovely Vicente MD Primary Care Provider Encounter Details Date Type Department Care Team Description 01/16/2019 Laboratory Appointment Lab 3L [facility] [place] [phone] Social History Tobacco Use Types Packs/Day Years [...] MD [facility] [place], [place] [address] (Wo rk) 05/28/2022 Laboratory Appointment Lab 05/28/2022 Office Visit Cardiology Zulma Dolan MD [facility] [place] [address] [facility] [place] [address] 06/10/2022 Office Visit Dermatology Laura Scherer MD [facility] ER DR [address] [place], [place] [address] (Wo rk) documented as [...] Organization Address City/State/[place] [address] (ABNORMAL) Basic Metabolic Panel (non-fasting) (01/16/2019 7:49 AM EDT) athologist Signature Glucose Lvl 105 65 - [address] [facility] mg/dL [facility] LABORATORY [...] of body mass or the acutely ill. http://Verious/[employer] Pharmaceuticalsnkf eGFR 79 >=60 mL/min/1.73 m?? [facility] Comment: The eGFR was calculated using the CKD-EP I equation. As with all creatinine based estimates of kidney function, eGFR values calculated with the CKD-EPI equation are not accurate in patients wi th acute kidney failure, extremes of body mass or the acutely ill. http://Verious/[employer]aceuticalsnkf Specimen Anatomical Collection Method Collection Time Receive d Time (Source) Location / / Volume Laterality Blood specimen 01/16/2019 7:49 AM 019 7:55 (specimen) EDT AM EDT Resulting Agency Comment Spec In Lab Danette Maxwell APRN CHEMISTRY ORDERABLES Performing Organization Address City/State/[place] [address] documented in this encounter Visit Diagnoses Diagnosis Chronic systolic heart failure documented in this encounter Care Teams Computer Scientist Relationship Specialty Start Date End Date Lovely Vicente MD PCP - General 04/16/[address] [place] [address] documented as of this encounter
--- OUTSIDE RECORDS SUMMARY | 2022-04-13 08:08 | XMS_ITS | Encounter Summary ---
:1945 Author Organization [facility] [place] [address] Care Team Providers Name Role Phone Lovely Vicente MD Primary Care Provider Encounter Details Date Type Department Care Team Description 04/16/2021 Laboratory Appointment Lab 3L [facility] [place] [phone] Social History Tobacco Use Types Packs/Day Years [...] Dolan MD [facility] er [place], [place] [address] (Wo rk) 05/28/2022 Laboratory Appointment Lab 05/28/2022 Office Visit Cardiology Zulma Dolan MD [facility] [place] [address] Liz Poole PA [facility] [place] [address] 06/10/2022 Office Visit Dermatology Laura Scherer MD [facility] ER DR [address] [place], [place] [address] (Wo rk) documented as of this encounter [...] Organization Address City/State/[place] [address] (ABNORMAL) Basic Metabolic Panel (non-fasting) (04/16/2021 9:58 AM EDT) athologist Signature Glucose Lvl 77 65 - 199 [facility] mg/dL [facility] [...] Organization Address City/State/[place] [address] documented in this encounter Visit Diagnoses Diagnosis Chronic systolic heart failure documented in this encounter Care Teams Photographic Machine Operator Relationship Specialty Start Date End Date Lovely Vicente MD PCP - General 04/16/[address] [place] [address] documented as of this encounter
--- OUTSIDE RECORDS SUMMARY | 2022-04-13 08:08 | XMS_ITS | Encounter Summary ---
:1945 Author Organization [facility] [place] [address] Care Team Providers Name Role Phone Lovely Vicente MD Primary Care Provider Encounter Details Date Type Department Care Team Description 12/08/2021 External Results Non-Invasive Cardiology Lab Mar y None [facility] [place] [address] Social History Tobacco Use Types Packs/Day [...] MD [facility] er [place], [place] [address] (Wo rk) 05/28/2022 Laboratory Appointment Lab 05/28/2022 Office Visit Cardiology Zulma Dolan MD [facility] [place] [address] Liz Poole PA [facility] [place] [address] 06/10/2022 Office Visit Dermatology Laura Scherer MD [facility] DR [address] [place], [place] [address] (Wo rk) documented as [...] filedocumented in this encounter Care Teams Head School Custodian Relationship Specialty Start Date End Date Lovely Vicente MD PCP - General 04/16/[address] [place] [address] documented as of this encounter
--- OUTSIDE RECORDS SUMMARY | 2022-04-13 08:08 | XMS_ITS | Encounter Summary ---
:1945 Author Organization [facility] [place] [address] Care Team Providers Name Role Phone Lovely Vicente MD Primary Care Provider Encounter Details Date Type Department Care Team Description 07/28/2019 Laboratory Appointment Lab 3L [facility] [place] [phone] Social History Tobacco Use Types Packs/Day Years [...] Zulma Dolan MD [facility] er [place], [place] [address] (Wo rk) 05/28/2022 Laboratory Appointment Lab 05/28/2022 Office Visit Cardiology Zulma Dolan MD [facility] [place] [address] Liz Poole PA [facility] [place] [address] 06/10/2022 Office Visit Dermatology Laura Scherer MD [facility] DR [address] [place] [address] (Wo rk) documented as of this encounter [...] City/State/[place] [address] (ABNORMAL) Basic Metabolic Panel (non-fasting) (07/28/2019 8:36 AM EST) athologist Signature Glucose Lvl 153 65 - 199 [facility] mg/dL [facility] [...] of body mass or the acutely ill. http://Thumbs Up/[employer] eGFR 81 >=60 mL/min/1.73 m?? [facility] Comment: The eGFR was calculated using the CKD-EP I equation. As with all creatinine based estimates of kidney function, eGFR values calculated with the CKD-EPI equation are not accurate in patients wi th acute kidney failure, extremes of body mass or the acutely ill. http://Thumbs Up/[facility] OKEM[facility]nkf Specimen Anatomical Collection Method Collection Time Receive d Time (Source) Location / / Volume Laterality Blood specimen 07/28/2019 8:36 AM 020 8:46 (specimen) EST AM EST Resulting Agency Comment Spec In Lab Danette Maxwell APRN CHEMISTRY ORDERABLES Performing Organization Address City/State/Z[place] [address] documented in this encounter Visit Diagnoses Diagnosis Chronic systolic heart failure documented in this encounter Care Teams Cap Jewel Plate Assembler Relationship Specialty Start Date End Date Lovely Vicente MD PCP - General 04/16/[address] [place] [address] documented as of this encounter
--- OUTSIDE RECORDS SUMMARY | 2022-04-13 08:08 | XMS_ITS | Encounter Summary ---
:1945 [place] [address] Care Team Providers Name Role Phone Lovely Vicente MD Primary Care Provider Encounter Details Date Type Department Care Team Description 07/12/2019 Office Visit Dermatology at [facility], Rigoberto Yarbrough (actinic keratosis); MD SHAY Quick III (seborrheic keratosis); [address] [facility] Multiple benign nevi; [place] [address] History of melanoma [phone] [facility]-DERMATOLGY [place], [place] [address] Social History Tobacco Use Types [...] MD [facility] Dr [place], [place] [address] (Wo rk) 05/28/2022 Laboratory Appointment Lab 05/28/2022 Office Visit Cardiology Zulma Dolan MD [facility] [place] [address] Liz Poole PA [facility] [place] [address] 06/10/2022 Office Visit Dermatology Laura Scherer MD [facility] [address] [place], [place] [address] (Wo rk) documented as of this encounter Visit Diagnoses Diagnosis [place] (actinic keratosis) Actinic keratosis [place] (seborrheic keratosis) Other seborrheic keratosis Multiple benign nevi Benign neoplasm of skin, site unspecifie d History of melanoma Personal history of malignant melanoma o f skin documented in this encounter Care Teams Evaluator Relationship Specialty Start Date End Date Lovely Vicente MD PCP - General 04/16/[address] [facility] [address] [place] [address] documented as of this encounter
--- OUTSIDE RECORDS SUMMARY | 2022-04-13 08:08 | XMS_ITS | Encounter Summary ---
:1945 [place] [address] Care Team Providers Name Role Phone Lovely Vicente MD Primary Care Provider Reason for Visit Reason Comments Skin Cancer Examination Encounter Details Date Type Department Care Team Description 03/20/2021 Office Visit Dermatology at [facility] Brennen Rene MD History of melanoma; [facility] History of dysplastic nevus; [address] Multiple benign nevi; [place] [address] [facility] (seborrheic keratosis); [phone] [address]-DERMATOLOGY [place] (actinic keratosis) [place], [place] [address] Social History Tobacco Use [...] no SOCIAL HISTORY Occupation: [employer]or for [employer] 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 Last visit at [facility] Derm: 01/02/2020 Medications: Reviewed in eD-H [...] FSE; history of Melanoma []Note routed to swatch paster [x]Recall has been placed in scheduling system []Appointment scheduled at checkout Scribe attestation: Yoana Pang LPN has performed the documentation for this encounter in the presence of and acting as a scribe for LAURA RENE MD I performed the above scribed service and agree with the accuracy of the documentation in this encounter. Reviewed and signed by: LAURA RENE MD Dermatology [facility] documented in this encounter Plan of Treatment Upcoming Encounters Date Type Specialty Care Team Description 05/28/2022 Appointment Cardiology TrudiZulma Knowles MD [facility] [place], [place] [address] (Wo rk) 05/28/2022 Laboratory Appointment Lab 05/28/2022 Office Visit Cardiology Zulma Dolan MD [facility] [place] [address] Liz Poole PA [facility] [place] [address] 06/10/2022 Office Visit Dermatology Laura Rene MD [facility] DR [address] [place], [place] [address] (Wo rk) documented as [...] keratosis documented in this encounter Care Teams Coal Loader Relationship Specialty Start Date End Date Lovely Vicente MD PCP - General 04/16/[address] [place] [address] documented as of this encounter
--- OUTSIDE RECORDS SUMMARY | 2022-04-13 08:08 | XMS_ITS | Encounter Summary ---
:1945 Author Organization [facility] [place] [address] Care Team Providers Name Role Phone Lovely Vicente MD Primary Care Provider Encounter Details Date Type Department Care Team Description 02/19/2020 Telephone Dermatology at [facility] Ariana Wilder LPN [address] [place] [address] Social History Tobacco Use Types Packs/Day [...] Zulma Dolan MD [facility] [place], [place] [address] (Wo rk) 05/28/2022 Laboratory Appointment Lab 05/28/2022 Office Visit Cardiology Zulma Dolan MD [facility] [place] [address] Liz Poole PA [facility] [place] [address] 06/10/2022 Office Visit Dermatology Laura Scherer MD [facility] DR [address] [place], [place] [address] (Wo rk) documented as of this encounter Visit Diagnoses Not on filedocumented in this encounter Care Teams Plasterer Foreman Relationship Specialty Start Date End Date Lovely Vicente MD PCP - General 04/16/[address] [place] [address] documented as of this encounter
--- OUTSIDE RECORDS SUMMARY | 2022-04-13 08:08 | XMS_ITS | Encounter Summary ---
:1945 Author Organization [facility] [place] [address] Care Team Providers Name Role Phone Lovely Vicente MD Primary Care Provider Encounter Details Date Type Department Care Team Description 07/28/2019 Office Visit Cardiology at [facility] Danette Maxwell Chronic systolic heart failu re; [facility] A, STACIE ASHD (arteriosclerotic heart disease); Drive [facility] S/P CABG x 3; [place], [place] MARIA VICTORIA (obstructive sleep apnea) on CPAP; [phone] CARDIOLOGY Mixed hyperlipidemia [phone] [place], [place] [address] Social History Tobacco Use Types [...] in this encounter Progress Notes Danette Maxwell, EGG WORKER - 07/28/2019 9:40 AM EST Images from [...] regurgitation present. 07/07/2019 - 07/21/2019 Zio Patch Poultry Killer The patient had a minimum heart rate [...] K+ 4.5 today 6. Post-op atrial fibrillation [id number] (CHF, HTN, DM, vascular disease, thromboembolism) Amiodarone discontinued Continue coumadin INR managed by PCP 7. PAD 08/06/2017: Right 1st, 2nd, 3rd toe amputation 08/11/2017: Left??femoral arterial access, RLE??angiogram, Balloon angioplasty of R PT with Eleazar 2.5 x 80 10/25/2017: right popliteal-pedal bypass at [facility] 8. Hypothyrodism S/p thyroidectomy for goiter [...] advised: Refer to EP (Dr. Mcelroy in [place]) 5. Heart Failure Clinic follow up scheduled for: 3 months with proBNP and BMP Danette Maxwell APRN 07/28/2019 documented in this encounter Plan of Treatment Upcoming Encounters Date Type Specialty Care Team Description 05/28/2022 Appointment Cardiology Zulma Dolan MD [facility] [place], [place] [address] (Wo rk) 05/28/2022 Laboratory Appointment Lab 05/28/2022 Office Visit Cardiology Zulma Dolan MD [facility] [place] [address] Liz Poole PA [facility] [place] [address] 06/10/2022 Office Visit Dermatology Laura Scherer MD [facility] DR [address] [place], [place] [address] (Wo rk) documented as of this encounter Results (ABNORMAL) Basic Metabolic Panel (non-fasting) (07/28/2019 8:36 AM EST) P athologist Signature Glucose Lvl 153 65 - 199 [facility] mg/dL [facility] Comment: Diabetes: >=200 mg/dL plus symp toms BUN 22 (H) 10 - 20 mg/dL [facility] [...] of body mass or the acutely ill. http://Hometapper/[facility] Hospitalk eGFR 81 >=60 mL/min/1.73 m?? [facility] Comment: The eGFR was calculated using the CKD-EP I equation. As with all creatinine based estimates of kidney function, eGFR values calculated with the CKD-EPI equation are not accurate in patients wi th acute kidney failure, extremes of body mass or the acutely ill. http://Hometapper/[facility] SULPHURnkf Specimen Anatomical Collection Method Collection Time Receive d Time (Source) Location / / Volume Laterality Blood specimen 07/28/2019 8:36 AM 020 8:46 (specimen) EST AM EST Resulting Agency Comment Spec In Lab Danette Maxwell APRN CHEMISTRY ORDERABLES Performing Organization Address City/State/ZIP Code Phon e Number [address] (ABNORMAL) pro-Brain Natriuretic Peptide (07/28/2019 8:36 AM EST) athologist Signature ProBNP 647 (H) <=125 pg/mL [facility] Specimen Anatomical Collection Method Collection Time Receive d Time (Source) Location / / Volume Laterality Blood specimen 07/28/2019 8:36 AM 020 8:46 (specimen) EST AM EST Resulting Agency Comment Spec In Lab Danette Maxwell APRN CHEMISTRY ORDERABLES Performing Organization Address City/[facility]/[place] [address] documented in this encounter Visit Diagnoses Diagnosis Chronic systolic heart failure ASHD (arteriosclerotic heart disease) Coronary atherosclerosis of unspecified type of vessel, grindstone or graft S/P CABG x 3 Postsurgical aortocoronary bypass status [place] VICTORIA (obstructive sleep apnea) on CPAP Obstructive sleep apnea (adult) (pediatr ic) Mixed hyperlipidemia documented in this encounter Care Teams Spinning Supervisor Relationship Specialty Start Date End Date Lovely Vicente MD PCP - General 04/16/[address] [place] [address] documented as of this encounter
--- OUTSIDE RECORDS SUMMARY | 2022-04-13 08:08 | XMS_ITS | Encounter Summary ---
:1945 Author Organization [facility] [address] Care Team Providers Name Role Phone Lovely Vicente MD Primary Care Provider Reason for Visit Auth/Cert Specialty Diagnoses / Procedures Referred By Contact Refer red To Contact Diagnoses NSTEMI Procedures emerg ipi Referral ID Status Reason Start Date Expiration Date Visits Requ ested Visits Authorized [id number] 1 1 Encounter Details Date Type Department Care Team Description 12/10/2021 Surgery Occ Therapy Asst Asa Coulter MD CARDIAC CATHETERIZATION [facility] [place] [address] [place] [address] [phone] (Wo rk) Social History Tobacco Use Types [...] Peter PA-C Kelly LaFlamme PA-C Cardiovascular Medicine [phone] Discharge Diagnoses (Hospital Problems) and Secondary Diagnoses [...] 3.75 guiding catheter and a 3.5 Fr [place] 20 Mhz using Manual pullback. Imaging was successful. Image quality was good. The ostial LCX showed moderate diffuse atherosclerotic plaque with scattered three quadrant calcification. Measurements were performed after pre-dilation. Post Intervention: The stent was well expanded and apposed. Intravascular Ultrasound was performed in the distal LM using a 7 Fr EBU 3.75 guiding catheter and a 3.5 Fr [place] 20 Mhz using Manual pullback. Imaging was successful. Image quality was good. The distal LM showed moderate diffuse atherosclerotic plaque. Post Intervention: The stent was well expanded and apposed. Indication for Intervention: Coronary intervention was indicated for primary therapy for an acute myocardial infarction. The priority for the procedure was Urgent. The [facility] indication for the procedure was [...] may require modification of this regimen. Consult [facility] Interventional Cardiology for questions. [...] and cardiomegaly. ?? TTE from [facility] 12/08/21 ? Prior Cardiac Studies: TTE 07/28/2019 [...] in 2012 who presented to [facility] with 1 week progressing breathlessness with patient [...] Liz Poole PA-C. ?? At [facility], respiratory distress with hypoxia 86% on room [...] appointments: During 8am-5pm Wednesday through Wednesday call [phone] to speak with a nurse in the cardiology clinic All other times call [phone] and ask to speak to the table games floor supervisor clip on sunglasses inspector. Return to work: One week Driving: No driving for 48 hours after catheterization. Follow up Appointments: PCP Lovely Vicente MD [phone] to see patient at the end of December for annual check up. Patient to see Dr. Lorenzana at 1120 am at December 19 for a post hospital check up. Mixing Technician Dr. De Oliveira to see you in [facility]. Left a message for office to set a date and time. Please call [phone] Noblse to see the patient for a same day cath in 2-3 weeks from now. Office to call with a date and time. For questions please call [phone] Home oxygen therapy: N/A Arrangements for VNA/home care: none Future Appointments and Orders Future Orders Complete By Expires Basic Metabolic Panel (non-fasting) [LAB15 Custom] 12/19/2021 (Approximate) 12/12/2022 Process Instructions: INCLUDES: Calcium, BUN, Creat, GFR, Glucose, Lytes Scheduling Instructions: Comments: Questions: Referral to Cardiac Rehab [FHU169 Custom] As directed Process Instructions: If no [...] appointments: During 8am-5pm Wednesday through Wednesday call [phone] to speak with a nurse in the cardiology clinic All other times call [phone] and ask to speak to the table games floor supervisor clip on sunglasses inspector. Return to work: One week Driving: No driving for 48 hours after catheterization. Follow up Appointments: PCP Lovely Vicente MD [phone] to see patient at the end of December for annual check up. Patient to see Dr. Lorenzana at 1120 am at December 19 for a post hospital check up. Mixing Technician Dr. De Oliveira to see you in [facility]. Left a message for office to set a date and time. Please call [phone] Nobles to see the patient for a same day cath in 2-3 weeks from now. Office to call with a date and time. For questions please call [phone] Home oxygen therapy: N/A Arrangements for VNA/home [...] Progress Note Patient Name: Don Fatima Service: MAINTENANCE AND UTILITIES SUPERVISOR / PA Responsible Attending: Ifeanyi Truong MD [...] was given Lasix 80mg IV x1 in prosthetic lab technician. Tolerated procedure well. Home today [...] congestion and cardiomegaly. TTE from [facility] 12/08/21 Prior Cardiac Studies: TTE 07/28/2019 SUMMARY: [...] with MD Janneth Neville PA 12/12/2021 Pager [phone] Associated attestation - Ifeanyi Truong MD - [...] ratio for each meal) Desirae Jett APRN [facility] Endocrinology Diabetes Management Pager [phone] 20 minutes of this 35 minute visit [...] Progress Note Patient Name: Don Fatima Service: MAINTENANCE AND UTILITIES SUPERVISOR / PA Responsible Attending: Iker Cuevas MD [...] was given Lasix 80mg IV x1 in prosthetic lab technician. Tolerated procedure well. Review of [...] Intake/Output Summary (Last 24 hours) at 12/11/2021 0968 Last data filed at 12/11/2021 0508 Gross [...] congestion and cardiomegaly. TTE from [facility] 12/08/21 Prior Cardiac Studies: TTE 07/28/2019 SUMMARY: [...] questions. Iker Cuevas MD [facility] Total time spent on review of records prior to visit, face to face time with patient during visit, documentation, and coordination of care with other clinicians: 25 minutes. . Iker Cuevas MD - 12/10/2021 12:30 PM EDT Images from the original note were not included. Inpatient Cardiology Progress Note Patient Name: Don Fatima Service: MAINTENANCE AND UTILITIES SUPERVISOR / PA Responsible Attending: Iker Cuevas MD [...] was given Lasix 80mg IV x1 in prosthetic lab technician. Tolerated procedure well. Review of [...] 0.92* 0.89* Pertinent Radiographic/Diagnostic Results: R/[facility] 12/10/21 Hemodynamics: Right Heart Pressures Resting: Syst [...] congestion and cardiomegaly. TTE from [facility] 12/08/21 Prior Cardiac Studies: TTE 07/28/2019 SUMMARY: [...] Discussed with MD Migdalia Peter PA-C Pager #[phone] 12/10/2021 Cardiology Attending Note I have seen [...] pictures. Iker Cuevas MD [facility] Total time spent on review of records prior to visit, face to face time with patient during visit, documentation, and coordination of care with other clinicians: 35 minutes. Iker Cuevas MD - 12/09/2021 7:28 AM EDT Images from the original note were not included. 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 TTE from [facility] 12/08/21 Prior Cardiac Studies: TTE 07/28/2019 SUMMARY: [...] Discussed with MD Migdalia Peter PA-C Pager #[phone] 12/09/2021 Cardiology Attending Note I have seen and examined the patient. I agree with the findings above. Developed CHF early this am despite getting more iv lasix last evening. Feeling better now. INR > 2. Lungs still wet at base. Echo at [facility] showed EF 35% with mild mod MR slightly lower than last value here. -vit K 2.5 orally to facilitate correction of INR- this will take 12-24 hours to take effect -furosemide 80 mg iv now -postpone right and left heart cath until tomorrow given INR and ADHF -increase statin to achieve LDL < 70 -CPAP tonight Iker Taverass MD [facility] Total time spent on review of [...] in 2012 who presented to [facility] with 1 week progressing breathlessness with patient [...] with Liz Poole PA-C. At [facility], respiratory distress with hypoxia 86% on room [...] SETUP performed by Manny Mcknight MD at [facility] MAIN OR ??? PRO AMPUTATION FOOT, TRANSMETATARSAL Right 08/09/2017 AMPUTATION, TRANSMETATARSAL (WRVU 12.71) performed by Yonathan Smith MD at [facility] MAIN OR ??? PRO CABG, ARTERIAL, SINGLE N/A 07/07/2017 @CABG, USING ARTERIAL GRAFT;SINGLE ARTERIAL GRAFT (WRVU 33.75) performed by Yuan Retana MD at [facility] MAIN OR ??? PRO CABG, ARTERY-VEIN, TWO N/A 07/07/2017 @CABG, TWO VENOUS GRAFTS & ARTERIAL GRAFT (WRVU 7.93) performed by Yuan Retana MD at [facility] MAIN OR ??? PRO COLONOSCOPY, REMV LESN, SNARE 01/16/2014 COLONOSCOPY, POLYPECTOMY, REMOVAL LESION BY SNARE performed by Nohemi Jaimes MD at [facility] ENDOSCOPY ??? PRO DRESSING CHANGE UNDER ANESTHESIA Right 08/11/2017 (MSURG) DRESSING CHANGE (FOR OTHER THAN IVAN) UNDER ANES. (WRVU 0.86) performed by Lamar Smith MD at [facility] MAIN OR ??? PRO ENDOSCOPY W/VIDEO-ASST VEIN HARVEST, CABG Right 07/07/2017 ENDOSCOPIC HARVEST VEIN(S) FOR CABG (WRVU 0.31) performed by Yuan Retana MD at [facility] MAIN OR ??? PRO THYROIDECTOMY 03/28/2013 THYROIDECTOMY, TOTAL OR COMPLETE performed by Manny Mcknight MD at [facility] MAIN OR Significant Family History: [...] - 199 mg/dL Labs at [facility] 12/08/2021-troponin I 8004 (UN L <60), 12/07- [...] ADRs. Trend troponins. Admission EKG. [facility] 12/09; consented. TTE. Telemetry monitoring, daily weights, [...] control; n.p.o. after midnight for [facility] #DVT prophy- heparin infusion #GI prophy- PPI Discussed with MD Morgan Peter PA-C APP2 pager [phone] 12/08/2021 Cardiology Attending Note I have seen [...] is type 1 due to graft or [place] coronary stenosis vs acute injury from CHF. 3. PAF: currrently in NSR. Have replaced warfarin with heparin 4. PAD: stable 5. DM: stable 6. CKD: will monitor and minimize contrast. Pt very appreciative of Dr. Yuan Retana's care in 2018. Will let him know patient is here. Iker Cuevas MD [facility] documented in this encounter Miscellaneous Notes [...] Type: *No Product type* / Secondary Insurance: [employer] [place] Prescription Coverage: Yes This plan was [...] cath without complications. Migdalia Parker PA-C Pager #[phone] 12/10/2021 Initial Assessments - Nick Georges RN [...] COVID test: Lab Results Component Value Date [id number] Not Detected 12/08/2021 Past medical History: Past [...] 180 days) Any patient receiving care at [facility] must abide by [place] law. The hierarchy [...] - standard, cane - straight Home Address: [address] [place] [address] [place] [address] Social & Family Supports: All names listed below confirmed with patient as current and correct Extended Emergency Contact Information Primary Emergency Contact: Kisha Fatima Address: [address] [place] [address] [place] [address] [facility] Mobile Relation: Spouse Secondary Emergency Contact: Elba Swenson Address: [place], [place] [id number] [place] [address] Mobile Relation: Child Current Care Provided by: [...] Type: *No Product type* / Secondary Insurance: [facility] Prescription Coverage: Yes Preferred Pharmacy: [facility] [address] [address] - [place], [place] - [address] [address] [place] Status: Patient is a : unable to assess Primary Care Provider: Lovely Vicente MD [phone] Patient/Caregiver Goals of Treatment: Get out of here Potential Needs for Transition of Care: none Agency Referrals: none patient has used [facility] in the past Transportation: no concerns Transportation Anticipated: family or friend will provide Concerns to be Addressed: patient refuses services, discharge planning Assessment: Patient is admitted to [facility] Service pager [phone] for 76 y.o.??male??with h/o??CAD s/p 3vCABG (THOMPSON-LAD, [...] status on current unit. Nick Georges RN purchasing manager, Office of Care Management Pager: [phone] Brief Op Note - Vitaliy Nobles MD - 12/10/2021 8:31 AM EDT Images from the original note were not included. [facility] [place] [address] [address] CORONARY ANGIOGRAM AND PERCUTANEOUS CORONARY INTERVENTION REPORT Patient: Don Fatima : 1945 MR number: [id number] Date of Service: 12/10/2021 Steel Fixer: Vitaliy Nobles MD Fellow: [place] MD [...] andis managed by his PCP. Lives in [place], [place] with his . States that he [...] your patient Desirae Jett APRN Endocrinology Pager [phone] 70 minutes of this 80 minute visit [...] Program Consult Note Called to see Don Fatiam who is a 76 y.o.male by 4E [...] for further details. STEPHANIE Rebolledo 12/08/2021 Pager [phone] documented in this encounter Plan of Treatment Upcoming Encounters Date Type Specialty Care Team Description 05/28/2022 Appointment Cardiology Zulma Dolan MD [facility] [place], [place] [address] (Wo lissa) 05/28/2022 Laboratory Appointment Lab 05/28/2022 Office Visit Cardiology Zulma Dolan MD [facility] [place] [address] Liz Poole PA [facility] [place] [address] 06/10/2022 Office Visit Dermatology Laura Scherer MD [facility] [address] [place], [place] [address] (Wo rk) Scheduled Referrals Name [...] [facility] mg/dL [facility] Comment: Supplemental ranges: <140 mg/dL before meals <180 mg/dL all other times of the day Specimen Anatomical Collection Method Collection Time Receive d Time (Source) Location / / Volume Laterality Blood 12/12/2021 7:42 AM 7:42 EDT AM EDT Ifeanyi Truong MD POINT OF CARE TEST ORDERABLE S Performing Organization Address City/State/[place] [address] (ABNORMAL) Differential, Automated (12/12/2021 4:51 AM EDT) athologist Signature Neutrophils % 75.4 % [facility]ORY Neutr Abs (ANC) 5.95 1.70 - [facility] 6.10 [facility] x10(3)/[facility] LABORATORY Lymphocytes % 12.2 % [facility] Lymphocytes Abs 1.0 0.9 - 3.2 [facility] x10(3)/[facility] LABORATORY Monocytes % 9.5 % [facility]ORY Monocyte Abs 0.8 0.3 - 0.9 [facility] x10(3)/[facility] LABORATORY Eosinophils % 1.8 % [facility] Eosinophils Abs 0.1 0.0 - 0.4 [facility] x10(3)/[facility] LABORATORY Basophils % 0.5 % [facility] Basophils Abs 0.0 0.0 - 0.1 [facility] x10(3)/[facility] LABORATORY Immature Gran % 0.60 % [facility] [...] Gran Abs 0.05 (H) 0.00 - 0.04 x10(3)/[facility] LABORATORY Specimen Anatomical Collection Method Collection Time Receive d Time (Source) Location / / Volume Laterality Blood 12/12/2021 4:51 AM 2 5:06 EDT AM EDT Resulting Agency Comment Spec In Lab Bijan Sun MD HEMATOLOGY ORDERABLES Performing Organization Address City/State/ZIP Code Phon e Number [address] (ABNORMAL) Hemogram (12/12/2021 4:51 AM EDT) Analysis Performed At Patho logist Time Signature WBC 7.9 4.0 - 9.5 [facility] x10(3)/[facility] LABORATORY RBC 4.19 (L) 4.58 - [place] 5.54 [facility] x10(6)/[facility] LABORATORY Hemoglobin 12.1 (L) 13.7 - [place] 16.5 g/dL [facility] Hematocrit 36.7 (L) 40.5 - [facility] 48.5 % [facility] MCV 87.6 82.9 - [facility] 93.1 [facility] LABORATORY MCH 28.9 27.5 - [place] 32.1 pg [facility] MCHC 33.0 32.0 - [place] 35.7 g/dL [facility] Platelets 231 145 - 357 [facility] x10(3)/[facility] LABORATORY RDWSD 47.2 (H) 36.0 - [facility] R[facility] 45.0 [facility] LABORATORY RDWCV 14.6 (H) 11.4 - [facility] 13.8 % [facility] MPV 9.5 7.6 - 12.9 [facility] LABORATORY nRBC % Auto 0.0 % [facility] nRBC Abs Auto 0.000 0.000 - [place] 0.000 [facility] x10(3)/[facility] LABORATORY Specimen Anatomical Collection Method Collection Time Receive d Time (Source) Location / / Volume Laterality Blood 12/12/2021 4:51 AM 2 5:06 EDT AM EDT Resulting Agency Comment Spec In Lab Bijan Sun MD HEMATOLOGY ORDERABLES Performing Organization Address City/[facility]/[place]IP [place] [address] (ABNORMAL) Prothrombin Time (12/12/2021 4:51 AM EDT) athologist Signature PT 14.9 (H) 9.4 - 12.5 [facility] LABORATORY INR 1.3 [facility] [...] Address City/State/[place] [address] (ABNORMAL) BMP w/fasting Glucose (12/12/2021 4:51 AM EDT) athologist Signature Glucose 152 (H) 65 - 99 [facility] Fasting mg/dL [facility] Comment: ?Fasting* [...] of Diabetes Mellitus, Position Statement from the [place] [employer]. ??Diabete s Care, Volume 33, [...] Organization Address City/State/[place] [address] Magnesium (12/12/2021 4:51 AM EDT) athologist Signature Magnesium 1.02 0.69 - 1.07 [place] mmol/L [facility] Specimen Anatomical Collection Method Collection Time Receive d Time (Source) Location / / Volume Laterality Blood 12/12/2021 4:51 AM 2 5:06 EDT AM EDT Resulting Agency Comment Spec In Lab Iker Cuevas MD CHEMISTRY ORDERABLES Performing Organization Address City/[facility]/ZIP Code Phon e Number [address] POCT Glucose (12/12/2021 3:43 AM EDT) athologist Signature POC Glucose 138 65 - 199 [place] mg/dL [facility] Comment: Supplemental ranges: <140 mg/dL before meals <180 mg/dL all other times of the day Specimen Anatomical Collection Method Collection Time Receive d Time (Source) Location / / Volume Laterality Blood 12/12/2021 3:43 AM 2 3:43 EDT AM EDT Iker Cuevsa MD POINT OF CARE TEST ORDERABLE S Performing Organization Address City/State/ZIP Code Phon e Number [address] POCT Glucose (12/11/2021 11:44 [...] Address City/State/ZIP Code Phon e Number [address] (ABNORMAL) POCT Glucose (12/11/2021 [...] Address City/State/[place] [address] (ABNORMAL) POCT Glucose (12/11/2021 [...] Address City/State/[place] [address] (ABNORMAL) POCT Glucose (12/11/2021 4:00 PM EDT) P athologist Signature POC Glucose 383 (H) 65 - 199 [facility] R[facility] mg/dL [facility] Comment: Supplemental ranges: <140 mg/dL before meals <180 mg/dL all other times of the day Specimen Anatomical Collection Method Collection Time Receive d Time (Source) Location / / Volume Laterality Blood 12/11/2021 4:00 PM 2 4:00 EDT PM EDT Iker Cuevas MD POINT OF CARE TEST ORDERABLE S Performing Organization Address City/State/[place] [address] (ABNORMAL) POCT Glucose (12/11/2021 [...] City/State/ZIP Code [place] [address] COVID-19 PCR (12/11/2021 10:13 AM EDT) [facility] Method Time Signature SARS-CoV-2 Not Detected Not Detected [place] RNA [facility] Comment: This result should be [...] diagnosis of COVID-19 is performed using the [employer]ON[employer] S-CoV-2 Assay as authorized by the FDA Emergency Use Authorization (EUA). This EUA assay is intended for In-vitro Diagnostic (IVD) use with respiratory sp ecimens such as nasopharyngeal swabs collected from individuals during the ac orutsararmiut phase of infection. This assay is performed based on the instructions for use provided by [employer] and additional guidance provided by CDC [...] is infected. As required or requested by [facility], positive specimens may be sent for additional [...] clinical management guidance information are available at [facility] CDC Coronavirus Disease 2019 (COVID-19) webpage under Information fo r Healthcare Professionals (https://www.cdc.gov/coronavirus/2019-nc ov/hcp/index.html) Additional information about this and ot her EUA tests can be found in provider and patient fact sheets at the following FDA website: https://www.fda.gov/medical-devices/mrxpvfmtsny-gwnmfmq-4524-pfuxw-08-amcqtpbwq- rtx-wflkstalvlylap-fgidblm-devices/kfepz-ustvdfjmezt-lexy SARS-Cov-2 RNA Source MAINTENANCE AND UTILITIES SUPERVISOR Swab [facility] Specimen (Source) Anatomical Collection Method Collection Time Re ceived Time Location / / Volume Laterality Nasopharyngeal Swab 12/11/2021 10:13 11/23 AM EDT 11:16 AM EDT Comment: Symptoms->Surveillance Resulting Agency Comment Spec In Lab Iker Cuevas MD MICROBIOLOGY - GENERAL ORDER [place] Performing Organization Address City/State/[place] [address] POCT Glucose (12/11/2021 7:34 AM EDT) P athologist Signature POC Glucose 198 65 - 199 [facility] mg/dL [facility] Comment: Supplemental ranges: <140 mg/dL before meals <180 mg/dL all other times of the day Specimen Anatomical Collection Method Collection Time Receive d Time (Source) Location / / Volume Laterality Blood 12/11/2021 7:34 AM 2 7:34 EDT AM EDT Iker Cuevas MD POINT OF CARE TEST ORDERABLE S Performing Organization Address City/State/[place] [address] (ABNORMAL) POCT Glucose (12/11/2021 5:07 AM EDT) P athologist Signature POC Glucose 208 (H) 65 - 199 [facility] mg/dL [facility] Comment: Supplemental ranges: <140 mg/dL before meals <180 mg/dL all other times of the day Specimen Anatomical Collection Method Collection Time Receive d Time (Source) Location / / Volume Laterality Blood 12/11/2021 5:07 AM 2 5:07 EDT AM EDT Iker Cuevas MD POINT OF CARE TEST ORDERABLE S Performing Organization Address City/State/[place] [address] (ABNORMAL) Differential, Automated (12/11/2021 4:28 AM EDT) Patholo gist Method Time Signature Neutrophils % 79.6 % [facility]OR[facility]ORY Neutr Abs (ANC) 7.01 (H) 1.70 - [facility] 6.10 [facility] x10(3)/[facility] L LABORATORY Lymphocytes % 9.1 % [facility]ORATORY Lymphocytes Abs 0.8 (L) 0.9 - 3.2 [facility] x10(3)/[facility] LABORATORY Monocytes % 9.2 % [facility] LABORATORY Monocyte Abs 0.8 0.3 - 0.9 [facility] x10(3)/[facility] LABORATORY Eosinophils % 1.3 % [facility]ORY Eosinophils Abs 0.1 0.0 - 0.4 [facility] x10(3)/[facility] LABORATORY Basophils % 0.5 % [facility]OR[facility]ORY Basophils Abs 0.0 0.0 - 0.1 [facility] x10(3)/[facility] LABORATORY Immature Gran % 0.30 % [facility] [...] Melisa Gran Abs 0.03 0.00 - 0.04 x10(3)/[facility] MAR Y [facility] [facility]PITAL LAB[facility]ATORY Specimen Anatomical Collection Method Collection Time Receive d Time (Source) Location / / Volume Laterality Blood 12/11/2021 4:28 AM 4:37 EDT AM EDT Resulting Agency Comment Spec In Lab Bijan Sun MD HEMATOLOGY ORDERABLES Performing Organization Address City/State/ZIP Code Phon e Number [place] [phone] HOSPITAL LABORATORY Drive (ABNORMAL) Hemogram (12/11/2021 4:28 AM EDT) Analysis Performed At Patho logist Time Signature WBC 8.8 4.0 - 9.5 [facility] x10(3)/[facility] LABORATORY RBC 4.15 (L) 4.58 - [place]BAR[place] RYAN 5.54 [facility] x10(6)/[facility] LABORATORY Hemoglobin 11.9 (L) 13.7 - [facility] 16.5 g/dL [facility] Hematocrit 36.9 (L) 40.5 - [facility] 48.5 % [facility] MCV 88.9 82.9 - [facility] 93.1 [facility] LABORATORY MCH 28.7 27.5 - [place] RYAN 32.1 pg [facility] MCHC 32.2 32.0 - [facility] 35.7 g/dL [facility] Platelets 211 145 - 357 [facility] x10(3)/[facility] LABORATORY RDWSD 48.3 (H) 36.0 - [facility] 45.0 [facility] LABORATORY RDWCV 14.8 (H) 11.4 - [facility] 13.8 % [facility] MPV 9.6 7.6 - 12.9 [facility] LABORATORY nRBC % Auto 0.0 % [facility] LABORATORY nRBC Abs Auto 0.000 0.000 - [facility] 0.000 [facility] x10(3)/[facility] LABORATORY Specimen Anatomical Collection Method Collection Time Receive d Time (Source) Location / / Volume Laterality Blood 12/11/2021 4:28 AM 2 4:37 EDT AM EDT Resulting Agency Comment Spec In Lab Bijan Sun MD HEMATOLOGY ORDERABLES Performing Organization Address City/[facility]/ZIP [facility] [place] [address] (ABNORMAL) Prothrombin Time (12/11/2021 4:28 AM EDT) P athologist Signature PT 17.7 (H) 9.4 - 12.5 [facility] LABORATORY INR 1.6 [facility] LABORATORY Comment: An [...] Cuevas MD HEMATOLOGY ORDERABLES Performing Organization Address City/[facility]/[place] [address] (ABNORMAL) BMP w/fasting Glucose (12/11/2021 4:28 AM EDT) P athologist Signature Glucose 207 (H) 65 - 99 [facility] Fasting mg/dL [facility] Comment: ?Fasting* [...] of Diabetes Mellitus, Position Statement from the [place] [employer]. ??Diabete s Care, Volume 33, Supplement 1, Jul 2009 BUN 49 (H) 10 - 20 mg/dL [facility] LABORATORY Creatinine 1.43 0.80 - 1.50 [...] Estimated GFR 48 (L) >=60 mL/min/1.73 m?? [facility] [...] Cuevas MD CHEMISTRY ORDERABLES Performing Organization Address City/[facility]/[place]IP [place] [address] Magnesium (12/11/2021 4:28 AM EDT) athologist Signature Magnesium 1.04 0.69 - 1.07 [facility] mmol/L [facility] Specimen Anatomical Collection Method Collection Time Receive d Time (Source) Location / / Volume Laterality Blood 12/11/2021 4:28 AM 2 4:37 EDT AM EDT Resulting Agency Comment Spec In Lab Iker Cuevas MD CHEMISTRY ORDERABLES Performing Organization Address City/[facility]/ZIP Code Phon e Number [address] POCT Glucose (12/11/2021 3:58 [...] TEST ORDERABLE S Performing Organization Address City/[facility]/ZIP [place] [address] (ABNORMAL) POCT Glucose (12/10/2021 [...] TEST ORDERABLE S Performing Organization Address City/[facility]/[place] [address] (ABNORMAL) POCT Glucose (12/10/2021 7:54 PM EDT) athologist Signature POC Glucose 225 (H) 65 - 199 [facility] mg/dL [facility] Comment: Supplemental ranges: <140 mg/dL before meals <180 mg/dL all other times of the day Specimen Anatomical Collection Method Collection Time Receive d Time (Source) Location / / Volume Laterality Blood 12/10/2021 7:54 PM 2 7:54 EDT PM EDT Iker Cuevas MD POINT OF CARE TEST ORDERABLE S Performing Organization Address City/[facility]/Z[place] [address] Potassium (12/10/2021 7:46 PM EDT) athologist [facility] Potassium 4.2 3.5 - 5.0 [facility] mmol/L [facility] Comment: Please note: [...] Cuevas MD CHEMISTRY ORDERABLES Performing Organization Address City/[facility]/ZIP [facility] [place] [address] (ABNORMAL) Basic Metabolic Panel (non-fasting) (12/10/2021 6:12 PM EDT) athologist Signature Glucose Lvl 246 (H) 65 - 199 [facility] mg/dL [facility] Comment: Diabetes: >=200 mg/dL plus symp toms BUN 50 (H) 10 - 20 mg/dL [facility] LABORATORY Creatinine 1.39 0.80 - 1.50 mg/dL [facility] LABORATORY Sodium 138 135 - 145 mmol/L [facility] LABORATORY Potassium Not Perf 3.5 - 5.0 [facility] LABORATORY Comment: Unable to quantitate [...] mmol/L [facility] LABORATORY CO2 22 22 - 31 mmol/L [facility] LABORATORY Anion Gap 16 [...] Address City/State/ZIP Code Phon e Number [address] POCT Glucose (12/10/2021 4:59 PM EDT) P athologist Signature POC Glucose 158 65 - 199 [facility] mg/dL [facility] Comment: Supplemental ranges: <140 mg/dL before meals <180 mg/dL all other times of the day Specimen Anatomical Collection Method Collection Time Receive d Time (Source) Location / / Volume Laterality Blood 12/10/2021 4:59 PM 2 4:59 EDT PM EDT Iker Cuevas MD POINT OF CARE TEST ORDERABLE S Performing Organization Address City/State/[place] [address] (ABNORMAL) POCT Glucose (12/10/2021 12:43 PM EDT) P athologist Signature POC Glucose 241 (H) 65 - 199 [facility] mg/dL [facility] Comment: Supplemental ranges: <140 mg/dL before meals <180 mg/dL all other times of the day Specimen Anatomical Collection Method Collection Time Receive d Time (Source) Location / / Volume Laterality Blood 12/10/2021 12:43 12/10/2021 PM EDT 12:43 PM EDT Iker Cuevas MD POINT OF CARE TEST ORDERABLE S Performing Organization Address City/State/[place] [address] EKG 12 Lead (12/10/2021 11:17 AM EDT) Component Value Ref Range Test Analysis Performed Pathologis t Method Time At Signature Ventricular rate 62 BPM MUSE SYSTEM Atrial Rate 62 BPM MUSE SYSTEM P-R Interval 142 ms MUSE SYSTEM QRS Duration 100 ms MUSE SYSTEM Q-T Interval 434 ms MUSE SYSTEM QTC Calculated 440 ms MUSE SYSTEM (Bezet) Calculated P [place] 34 degrees MUSE SYSTEM Calculated R [place] -39 degrees MUSE SYSTEM Calculated T [place] 92 degrees MUSE SYSTEM INTERPRETATION Normal sinus rhythm MUSE SYSTEM Left axis deviation Minimal voltage criteria for LVH, may be normal variant ( [place] product ) Cannot rule out Inferior infarct [...] Laterality Volume Narrative 12/10/2021 12:04 PM EDT ?[facility] ? Cardiac Cathete rization/Intervention Report ? Patient Name: Don FatimaMadiha ? Procedure Date: 12/10/2021 ? A #: [id number] ? Primary Physician: Nobles, Vitaliy P ? Case #: [id number] ? File Name: [id number] ? Catheterization Order Number: [id number] ? [facility] ?[facility] ? Final Report [place], [place] ? Patient Name: ? Don E. Stewa rt ? ID#: ?[id number] ? : ?1945 ? Procedure Date: ? [...] procedure was Urgent. The indication for ?the prosthetic lab technician visit is ACS great er [...] ?3.75 guiding catheter and a 3.5 Fr [place] [facility] [place] 20 Mhz using Manual ?pullback. ??Imaging was [...] ?3.75 guiding catheter and a 3.5 Fr [place] [facility] [place] 20 Mhz using Manual ?pullback. ??Imaging was [...] require ?modification of this regimen. C [facility] Interventional Cardiology for ?questions. ?The 1 year bleeding risk as nusrat culated by the PRECISE DAPT score is High ?risk. ?High Bleeding Risk - Anticoagul ation and DAPT: ?- ??Assess ischemic and bleedin g risks using validated risk predictors ?(e.g. CHADS2-VASC, HAS-BLED, LA ECISE DAPT, DAPT Score) ?- ??Keep anticoagulant [...] Note Vitaliy Nobles MD - 01/14/2022 [facility] Cardiac Catheterization/Intervention Re port Patient Name: Don Fatima Procedure Date: 12/10/2021 A #: [id number] Primary Physician: Vitaliy Nobles Case #: [id number] File Name: [id number] Catheterization Order Number: [id number] [facility] Occ Therapy Asst [facility] Final Report [place], [place] Patient Name: Don Fatima ID#: [...] e was Urgent. The indication for the prosthetic lab technician visit is ACS greater than [...] and a 3.5 Fr [place] [facility] [place] 20 Mhz using Manual pullback. Imaging was [...] and a 3.5 Fr [place] [facility] [place] 20 Mhz using Manual pullback. Imaging was [...] require modification of this regimen. Consult D [facility] Interventional Cardiology for questions. The [...] POC Glucose 262 (H) 65 - 199 [facility] mg/dL [facility] Comment: Supplemental ranges: <140 mg/dL before meals <180 mg/dL all other times of the day Specimen Anatomical Collection Method Collection Time Receive d Time (Source) Location / / Volume Laterality Blood 12/10/2021 10:30 12/10/2021 AM EDT 10:30 AM EDT Iker Cuevas MD POINT OF CARE TEST ORDERABLE S Performing Organization Address City/State/[place] [address] (ABNORMAL) POCT Glucose (12/10/2021 [...] TEST ORDERABLE S Performing Organization Address City/[facility]/ZIP [place] [address] (ABNORMAL) POCT Glucose (12/10/2021 [...] Address City/State/[place] [address] (ABNORMAL) Point of Care Blood Gas Historical (12/10/2021 9:04 AM EDT) [facility] Method Time Signature POC pH 7.40 7.35 - [place] RYAN 7.45 [facility] POC PCO2 40 35 - 45 [facility] LABORATORY POC PO2 63 (L) 85 - 104 [facility] LABORATORY POC Base Excess 0.0 -3.0 - 3.0 [facility] K mmol/L [facility] POC HCO3 24.8 20.0 - [facility] 26.0 [facility] POC Sodium 143 135 - 145 [facility] mmol/L [facility] POC Potassium 3.7 3.5 - 5.0 [facility] mmol/L [facility] POC Ionized Ca 1.07 (L) 1.15 - [facility] 1.33 [facility] POC Hematocrit 30.0 (L) 40.0 - [facility] 51.0 % [facility] POC Calc Hgb 10.2 (L) 13.7 - [facility] 17.5 g/dL [facility] Comment: The calculation of hemoglobin f rom hematocrit assumes a normal MCHC. POC Bgas Loc CC LAB [facility] LABORATORY Specimen Anatomical Collection Method Collection Time Receive d Time (Source) Location / / Volume Laterality Blood 12/10/2021 9:04 AM 2 EDT 12:00 PM EDT Ifeanyi Truong MD CHEMISTRY ORDERABLES Performing Organization Address City/State/[place] [address] (ABNORMAL) POCT Glucose (12/10/2021 7:19 AM EDT) P athologist Signature POC Glucose 274 (H) 65 - 199 [facility] mg/dL [facility] Comment: Supplemental ranges: <140 mg/dL before meals <180 mg/dL all other times of the day Specimen Anatomical Collection Method Collection Time Receive d Time (Source) Location / / Volume Laterality Blood 12/10/2021 7:19 AM 2 7:19 EDT AM EDT Iker Cuevas MD POINT OF CARE TEST ORDERABLE S Performing Organization Address City/State/[place] [address] Heparin (unfractionated) Level (12/10/2021 4:25 AM EDT) P athologist Signature Heparin UFH 0.69 IU/mL [facility] LABORATORY Comment: Heparin (anti-Xa) levels should [...] City/State/ZIP Code Phon e Number [place] [phone] HOSPITAL LABORATORY Drive (ABNORMAL) Differential, Automated (12/10/2021 4:25 AM EDT) Patholo gist Method Time Signature Neutrophils % 79.8 % [facility] LABORATORY Neutr Abs (ANC) 7.47 (H) 1.70 - [facility] 6.10 [facility] x10(3)/[facility] L LABORATORY Lymphocytes % 10.6 % [facility] LABORATORY Lymphocytes Abs 1.0 0.9 - 3.2 [facility] x10(3)/[facility] LABORATORY Monocytes % 8.4 % [facility] LABORATORY Monocyte Abs 0.8 0.3 - 0.9 [facility] x10(3)/[facility] LABORATORY Eosinophils % 0.6 % [facility] LABORATORY Eosinophils Abs 0.1 0.0 - 0.4 [facility] x10(3)/[facility] LABORATORY Basophils % 0.2 % [facility] LABORATORY Basophils Abs 0.0 0.0 - 0.1 [facility] x10(3)/[facility] LABORATORY Immature Gran % 0.40 % [facility] [...] Melisa Gran Abs 0.04 0.00 - 0.04 x10(3)/[facility] LABORATORY Specimen Anatomical Collection Method Collection Time Receive d Time (Source) Location / / Volume Laterality Blood 12/10/2021 4:25 AM 4:34 EDT AM EDT Resulting Agency Comment Spec In Lab Morgan BROWN HEMATOLOGY ORDERABLES Performing Organization Address City/State/[place] [address] (ABNORMAL) Hemogram (12/10/2021 4:25 AM EDT) Analysis Performed At Patho logist Time Signature WBC 9.4 4.0 - 9.5 [facility] x10(3)/[facility] LABORATORY RBC 3.81 (L) 4.58 - [facility] 5.54 [facility] x10(6)/[facility] LABORATORY Hemoglobin 11.1 (L) 13.7 - [facility] 16.5 g/dL [facility] Hematocrit 34.0 (L) 40.5 - [facility] 48.5 % [facility] MCV 89.2 82.9 - [facility] 93.1 [facility] LABORATORY MCH 29.1 27.5 - [facility] 32.1 pg [facility] MCHC 32.6 32.0 - [facility] 35.7 g/dL [facility] Platelets 183 145 - 357 [facility] x10(3)/[facility] LABORATORY RDWSD 49.9 (H) 36.0 - [facility] 45.0 [facility] LABORATORY RDWCV 15.2 (H) 11.4 - [facility] 13.8 % [facility] MPV 9.8 7.6 - 12.9 [facility] LABORATORY nRBC % Auto 0.0 % [facility] LABORATORY nRBC Abs Auto 0.000 0.000 - [facility] DAV[facility] 0.000 [facility] x10(3)/[facility] LABORATORY Specimen Anatomical Collection Method Collection Time Receive d Time (Source) Location / / Volume Laterality Blood 12/10/2021 4:25 AM 2 4:34 EDT AM EDT Resulting Agency Comment Spec In Lab Morgan BROWN HEMATOLOGY ORDERABLES Performing Organization Address City/[facility]/ZIP Code Phon e Number [address] (ABNORMAL) Prothrombin Time (12/10/2021 4:25 AM EDT) P athologist Signature PT 20.0 (H) 9.4 - 12.5 [facility] LABORATORY INR 1.7 [facility] LABORATORY Comment: An [...] Cuevas MD HEMATOLOGY ORDERABLES Performing Organization Address City/[facility]/ZIP [place] [address] (ABNORMAL) BMP w/fasting Glucose (12/10/2021 4:25 AM EDT) P athologist Signature Glucose 210 (H) 65 - 99 [facility] Fasting mg/dL [facility] Comment: ?Fasting* [...] of Diabetes Mellitus, Position Statement from the [place] [employer]. ??Diabete s Care, Volume 33, Supplement 1, Jul 2009 BUN 54 (H) 10 - 20 mg/dL [facility] LABORATORY Creatinine 1.52 (H) 0.80 - [...] 15 mmol/L [facility] LABORATORY Calcium 8.0 (L) 8.5 - 10.5 mg/dL [facility] LABORATORY Estimated GFR 44 (L) >=60 mL/min/1.73 m?? [facility] [...] Address City/State/Z[place] [address] Magnesium (12/10/2021 4:25 AM EDT) athologist Signature Magnesium 0.95 0.69 - 1.07 [facility] mmol/L [facility] Specimen Anatomical Collection Method Collection Time Receive d Time (Source) Location / / Volume Laterality Blood 12/10/2021 4:25 AM 2 4:34 EDT AM EDT Resulting Agency Comment Spec In Lab Iker Cuevas MD CHEMISTRY ORDERABLES Performing Organization Address City/[facility]/ZIP [place] [address] POCT Glucose (12/10/2021 1:58 [...] TEST ORDERABLE S Performing Organization Address City/[facility]/ZIP Code Phon e Number [address] (ABNORMAL) POCT Glucose (12/09/2021 [...] TEST ORDERABLE S Performing Organization Address City/[facility]/Z[place] [address] Heparin (unfractionated) Level (12/09/2021 7:30 PM EDT) athologist Signature Heparin UFH 0.48 IU/mL [facility] LABORATORY Comment: Heparin (anti-Xa) levels should [...] Organization Address City/State/[place] [address] (ABNORMAL) Basic Metabolic Panel (non-fasting) (12/09/2021 7:30 PM EDT) athologist Signature Glucose Lvl 372 (H) 65 - 199 [facility] mg/dL [facility] Comment: Diabetes: >=200 mg/dL plus symp toms BUN 56 (H) 10 - 20 mg/dL [facility] LABORATORY Creatinine 1.75 (H) 0.80 - [...] mmol/L [facility] LABORATORY CO2 22 22 - 31 mmol/L [facility] LABORATORY Anion Gap 14 5 - 15 mmol/L [facility] LABORATORY Calcium 8.1 (L) 8.5 - 10.5 mg/dL [facility] LABORATORY Estimated GFR 37 (L) >=60 mL/min/1.73 m?? [facility] [...] Organization Address City/State/[place] [address] (ABNORMAL) POCT Glucose (12/09/2021 [...] Address City/State/Z[place] [address] (ABNORMAL) POCT Glucose (12/09/2021 6:32 PM EDT) athologist Signature POC Glucose 356 (H) 65 - 199 [facility] mg/dL [facility] Comment: Supplemental ranges: <140 mg/dL before meals <180 mg/dL all other times of the day Specimen Anatomical Collection Method Collection Time Receive d Time (Source) Location / / Volume Laterality Blood 12/09/2021 6:32 PM 2 6:32 EDT PM EDT Iker Cuevas MD POINT OF CARE TEST ORDERABLE S Performing Organization Address City/[facility]/Z[place] [address] (ABNORMAL) POCT Glucose (12/09/2021 4:19 PM EDT) athologist Signature POC Glucose 347 (H) 65 - 199 [facility] mg/dL [facility] Comment: Supplemental ranges: <140 mg/dL before meals <180 mg/dL all other times of the day Specimen Anatomical Collection Method Collection Time Receive d Time (Source) Location / / Volume Laterality Blood 12/09/2021 4:19 PM 2 4:19 EDT PM EDT Iker Cuevas MD POINT OF CARE TEST ORDERABLE S Performing Organization Address City/State/[place] [address] Heparin (unfractionated) Level (12/09/2021 1:29 PM EDT) athologist Signature Heparin UFH 0.42 IU/mL [facility] LABORATORY Comment: Heparin (anti-Xa) levels should [...] Address City/State/Z[place] [address] (ABNORMAL) POCT Glucose (12/09/2021 12:02 PM EDT) athologist Signature POC Glucose 235 (H) 65 - 199 [facility] mg/dL [facility] Comment: Supplemental ranges: <140 mg/dL before meals <180 mg/dL all other times of the day Specimen Anatomical Collection Method Collection Time Receive d Time (Source) Location / / Volume Laterality Blood 12/09/2021 12:02 12/09/2021 PM EDT 12:02 PM EDT Iker Cuevas MD POINT OF CARE TEST ORDERABLE S Performing Organization Address City/State/[place] [address] (ABNORMAL) POCT Glucose (12/09/2021 [...] TEST ORDERABLE S Performing Organization Address City/[facility]/[place] [address] EKG 12 Lead (12/09/2021 7:57 AM EDT) Component Value Ref Range Test Analysis Performed Pathologis t Method Time At Signature Ventricular rate 101 BPM MUSE SYSTEM Atrial Rate 101 BPM MUSE SYSTEM P-R Interval 150 ms MUSE SYSTEM QRS Duration 112 ms MUSE SYSTEM Q-T Interval 364 ms MUSE SYSTEM QTC Calculated 471 ms MUSE SYSTEM (Bezet) Calculated P [place] 59 degrees MUSE SYSTEM Calculated R [place] -42 degrees MUSE SYSTEM Calculated T [place] 102 degrees MUSE SYSTEM INTERPRETATION Sinus tachycardia Occasional Premature ventricular com plexes MUSE SYSTEM Left axis deviation 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 mg/dL [facility] Comment: Supplemental ranges: <140 mg/dL before meals <180 mg/dL all other times of the day Specimen Anatomical Collection Method Collection Time Receive d Time (Source) Location / / Volume Laterality Blood 12/09/2021 7:28 AM 2 7:28 EDT AM EDT Iker Cuevas MD POINT OF CARE TEST ORDERABLE S Performing Organization Address City/State/ZIP Code Phon e Number [place] [id number] HOSPITAL LABORATORY Drive (ABNORMAL) Hemoglobin A1c (12/09/2021 6:18 AM EDT) Analysis Performed At Patho logist Time Signature Hemoglobin A1C 7.4 (H) 4.3 - 5.6 [facility] LABORATORY Comment: Reference Range: 4.3 [...] Mellitus, Diabetes Care 2013; 36: Suppl. 1, V47-53 Est Avg Gluc See note mg/dL [facility] [...] into estimated average glucose values. ??Diabetes Care 2008:31(8):0346-9364. Specimen Anatomical Collection Method Collection Time Receive d Time (Source) Location / / Volume Laterality Blood Venous Draw / 12/09/2021 6:18 AM 12/10/19 22 Unknown EDT 12:24 PM EDT Resulting Agency Comment Spec In Lab Migdalia BROWN CHEMISTRY ORDERABLES Performing Organization Address [facility] [place] [address] (ABNORMAL) Prothrombin Time (12/09/2021 6:18 AM EDT) athologist Signature PT 26.6 (H) 9.4 - 12.5 [facility] LABORATORY INR 2.3 [facility] LABORATORY Comment: An [...] Migdalia BROWN HEMATOLOGY ORDERABLES Performing Organization Address [facility] [place] [address] Heparin (unfractionated) Level (12/09/2021 6:18 AM EDT) P athologist Signature Heparin UFH 0.24 IU/mL [facility] LABORATORY Comment: Heparin (anti-Xa) levels should [...] Organization Address City/State/[place] [address] (ABNORMAL) Differential, Automated (12/09/2021 6:18 AM EDT) [facility] Method Time Signature Neutrophils % 91.5 % [facility] LABORATORY Neutr Abs (ANC) 15.78 (H) 1.70 - [facility] 6.10 [facility] x10(3)/[facility] LABORATORY Lymphocytes % 2.9 % [facility] LABORATORY Lymphocytes Abs 0.5 (L) 0.9 - 3.2 [facility] x10(3)/[facility] LABORATORY Monocytes % 4.9 % [facility] LABORATORY Monocyte Abs 0.8 0.3 - 0.9 [facility] x10(3)/[facility] LABORATORY Eosinophils % 0.0 % [facility] LABORATORY Eosinophils Abs 0.0 0.0 - 0.4 [facility] x10(3)/[facility] LABORATORY Basophils % 0.2 % [facility] LABORATORY Basophils Abs 0.0 0.0 - 0.1 [facility] x10(3)/[facility] LABORATORY Immature Gran % 0.50 % [facility] [...] Gran Abs 0.09 (H) 0.00 - 0.04 x10(3)/[facility] LABORATORY Specimen Anatomical Collection Method Collection Time Receive d Time (Source) Location / / Volume Laterality Blood 12/09/2021 6:18 AM 6:33 EDT AM EDT Resulting Agency Comment Spec In Lab [facility] HEMATOLOGY ORDERABLES Performing Organization Address City/State/[place] [address] (ABNORMAL) Hemogram (12/09/2021 6:18 AM EDT) Analysis Performed At Patho logist Time Signature WBC 17.2 (H) 4.0 - 9.5 [facility] x10(3)/[facility] LABORATORY RBC 4.32 (L) 4.58 - [facility] 5.54 [facility] x10(6)/[facility] LABORATORY Hemoglobin 12.6 (L) 13.7 - [facility] 16.5 g/dL [facility] LABORATORY Hematocrit 38.9 (L) 40.5 - [facility] 48.5 % [facility] MCV 90.0 82.9 - [facility] 93.1 [facility] LABORATORY MCH 29.2 27.5 - [facility] 32.1 pg [facility] MCHC 32.4 32.0 - [facility] 35.7 g/dL [facility] Platelets 193 145 - 357 [facility] x10(3)/[facility] LABORATORY RDWSD 50.4 (H) 36.0 - [facility] 45.0 [facility] LABORATORY RDWCV 15.2 (H) 11.4 - [facility] 13.8 % [facility] MPV 9.5 7.6 - 12.9 [facility] LABORATORY nRBC % Auto 0.0 % [facility] LABORATORY nRBC Abs Auto 0.000 0.000 - [facility] 0.000 [facility] x10(3)/[facility] LABORATORY Specimen Anatomical Collection Method Collection Time Receive d Time (Source) Location / / Volume Laterality Blood 12/09/2021 6:18 AM 6:33 EDT AM EDT Resulting Agency Comment Spec In Lab [facility] HEMATOLOGY ORDERABLES Performing Organization Address City/State/[place] [address] Lipid Panel (Reflex Direct LDL) (12/09/2021 6:18 AM EDT) athologist Signature Chol, Total 105 mg/dL [facility] LABORATORY Comment: Lower Risk: <200 mg/dL Average Risk: 200-239 mg/dL Higher Risk: >jz=332 mg/dL Triglycerides 133 mg/dL [facility] LABORATORY Comment: Average Risk/Lower Risk: <150 mg/dL Borderline High Risk: 150-199 mg/dL High Risk: 200-499 mg/dL Very High Risk: >fb=072 mg/dL HDL 42 mg/dL [facility] LABORATORY Comment: Males: ?? Higher Risk: <40 mg/dL Females: ?? Higher Risk: <50 mg/dL LDL Cholesterol 36 mg/dL [facility] LABORATORY Comment: Lowest Risk: <100 mg/dL Lower Risk: 100-129 mg/dL Borderline High Risk: 130-159 mg/dL High Risk: 160-189 mg/dL Very High Risk: >zu=495 mg/dL Chol/HDL Ratio 2.5 ratio [facility] LABORATORY Lipid Interpretation See Note [facility] LABORATORY Comment: Lipid management should be guided by a p atient? s ASCVD risk, goals and preferences. ACC/AHA Guidelines recommend high intens ity statin if clinical ASCVD or LDL greater than or equal to 190 mg/dL. http://tinyurl.com/RXR-HEU-Kmyvxnzss Adults aged 40-75 with LDL 70-189 mg/dL should have their 10 year ASCVD risk estimated with the ACC/AHA ASCVD risk es timator http://tools.acc.org/BHTVY-Cptg-Szjrtsnm r/ Statin should be discussed if risk [...] Cuevas MD CHEMISTRY ORDERABLES Performing Organization Address City/[facility]/ZIP Code Phon e Number [address] TSH (12/09/2021 6:18 AM EDT) P athologist Signature TSH 1.60 0.27 - 4.20 [employer] [employer] mcIU/mL [facility] LABORATORY Comment: Reference Interval (mcIU/mL): Females: ??First Trimester: 0.23-3.88 ??Second Trimester: 0.22-3.90 ??Third Trimester: 0.44-4.66 Specimen Anatomical Collection Method Collection Time Receive d Time (Source) Location / / Volume Laterality Blood 12/09/2021 6:18 AM 2 6:33 EDT AM EDT Resulting Agency Comment Spec In Lab Iker Cuevas MD CHEMISTRY ORDERABLES Performing Organization Address City/[facility]/ZIP [place] [address] Hepatic Function Panel (12/09/2021 [...] LABORATORY Alk Phos 75 40 - 130 ABRBARA RYAN unit/L [facility] Total 1.1 0.2 - 1.3 [facility] Bilirubin mg/dL [facility] Bili, Direct 0.2 0.0 - 0.3 [facility] mg/dL [facility] LABOR[facility]ORY Specimen Anatomical Collection Method Collection Time Receive d Time (Source) Location / / Volume Laterality Blood 12/09/2021 6:18 AM 6:33 EDT AM EDT Resulting Agency Comment Spec In Lab Iker Cuevas MD CHEMISTRY ORDERABLES Performing Organization Address City/State/[place] [address] (ABNORMAL) BMP w/fasting Glucose (12/09/2021 6:18 AM EDT) athologist Signature Glucose 235 (H) 65 - 99 [facility] Fasting mg/dL [facility]ORATORY Comment: ?Fasting* [...] of Diabetes Mellitus, Position Statement from the [place] [employer]. ??Diabete s Care, Volume 33, Supplement 1, Jul 2009 BUN 49 (H) 10 - 20 mg/dL [facility] LABORATORY Creatinine 1.33 0.80 - 1.50 mg/dL [facility] LABORATORY Sodium 139 135 - 145 mmol/L [facility] [...] Estimated GFR 52 (L) >=60 mL/min/1.73 m?? [facility] [...] Cuevas MD CHEMISTRY ORDERABLES Performing Organization Address City/[facility]/ZIP Code Phon e Number [address] Magnesium (12/09/2021 6:18 AM EDT) P athologist Signature Magnesium 0.81 0.69 - 1.07 [facility] mmol/L [facility] LABORATORY Specimen Anatomical Collection Method Collection Time Receive d Time (Source) Location / / Volume Laterality Blood 12/09/2021 6:18 AM 2 6:33 EDT AM EDT Resulting Agency Comment Spec In Lab Iker Cuevas MD CHEMISTRY ORDERABLES Performing Organization Address City/[facility]/ZIP Code Phon e Number [address] (ABNORMAL) Troponin (12/09/2021 6:18 [...] Definition of Myocardial Infarction. Journal of the [place] [employer] 2012;60:1581-98 Specimen Anatomical Collection Method Collection Time Receive d Time (Source) Location / / Volume Laterality Blood 12/09/2021 6:18 AM 6:33 EDT AM EDT Resulting Agency Comment Spec In Lab Iker Cuevas MD CHEMISTRY ORDERABLES Performing Organization Address City/State/ZIP Code Phon [place] [address] XR Chest One View [...] have questions please contact the health healthcare administrator that requested your imaging first. ? Narrative [...] have questions please contact the health healthcare administrator that requested your imaging first. Amber Sanches MD IMG DX ORDERABLES (ABNORMAL) BLOOD GAS 2 ARTERIAL (12/09/2021 5:14 AM EDT) Analysis Performed At Patho logist Time Signature pH Art 7.43 7.35 - [facility] 7.45 [facility] pCO2 Art 36 35 - 45 [facility] mmHg [facility] pO2 Art 67 (L) 85 - 104 [facility] LABORATORY HCO3 Art 23.4 20.0 - [facility] 26.0 [facility] mmol/[facility] LABORATORY BE Art -0.9 -3.0 - 3.0 [facility] mmol/L [facility] Hgb Blood Gas 13.2 (L) 13.7 - [facility] 16.5 g/dL [facility] O2HB Art 91.3 (L) 94.0 - [facility] 97.0 % [facility] COHB Art 0.4 % [facility] LABORATORY Comment: Nonsmokers: 0.5-1.5% COHB Smokers: Variable, but usually less than 10% Toxic: 20-30% COHB Lethal: Greater than 60% COHB METHB Art 0.4 <=1.5 % [facility] LABORATORY Na [...] [facility] LAB[facility] FIO2 Art 35 % [facility] LABORATORY Flow Art 8.0 LPM [facility] LABORATORY PF Ratio Art 191 [facility] LABORATORY Specimen Anatomical Collection Method Collection Time Receive d Time (Source) Location / / Volume Laterality Blood 12/09/2021 5:14 AM 2 5:14 EDT AM EDT Iker Cuevas MD CHEMISTRY ORDERABLES Performing Organization Address City/[facility] [place] [address] POCT Glucose (12/09/2021 4:46 AM EDT) P athologist Signature POC Glucose 198 65 - 199 [facility] mg/dL [facility]OR[facility] Comment: Supplemental ranges: <140 mg/dL before meals <180 mg/dL all other times of the day Specimen Anatomical Collection Method Collection Time Receive d Time (Source) Location / / Volume Laterality Blood 12/09/2021 4:46 AM 2 4:46 EDT AM EDT Iker Cuevas MD POINT OF CARE TEST ORDERABLE S Performing Organization Address City/[facility]/[place]IP [place] [address] (ABNORMAL) POCT Glucose (12/09/2021 3:01 AM EDT) P athologist Signature POC Glucose 225 (H) 65 - 199 [facility] mg/dL [facility] Comment: Supplemental ranges: <140 mg/dL before meals <180 mg/dL all other times of the day Specimen Anatomical Collection Method Collection Time Receive d Time (Source) Location / / Volume Laterality Blood 12/09/2021 3:01 AM 2 3:01 EDT AM EDT Iker Cuevas MD POINT OF CARE TEST ORDERABLE S Performing Organization Address City/State/[place] [address] (ABNORMAL) POCT Glucose (12/08/2021 10:55 PM EDT) athologist Signature POC Glucose 327 (H) 65 - 199 [facility] mg/dL [facility] Comment: Supplemental ranges: <140 mg/dL before meals <180 mg/dL all other times of the day Specimen Anatomical Collection Method Collection Time Receive d Time (Source) Location / / Volume Laterality Blood 12/08/2021 10:55 12/08/2021 PM EDT 10:55 PM EDT Iker Cuevas MD POINT OF CARE TEST ORDERABLE S Performing Organization Address City/[facility]/Z[place] [address] Heparin (unfractionated) Level (12/08/2021 10:03 PM EDT) athologist Signature Heparin UFH 0.18 IU/mL [facility] LABORATORY Comment: Heparin (anti-Xa) levels should [...] Address City/State/Z[place] [address] (ABNORMAL) Troponin (12/08/2021 10:03 [...] Definition of Myocardial Infarction. Journal of the [place] [employer] 2012;60:1581-98 Specimen Anatomical Collection Method Collection Time Receive d Time (Source) Location / / Volume Laterality Blood 12/08/2021 10:03 12/08/2021 PM EDT 10:31 PM EDT Resulting Agency Comment Spec In Lab Iker Cuevas MD CHEMISTRY ORDERABLES Performing Organization Address City/State/ZIP Code Phon e Number [facility] [address] (ABNORMAL) POCT Glucose (12/08/2021 8:22 PM EDT) athologist Signature POC Glucose 429 (H) 65 - 199 [facility] mg/dL [facility] LABORATORY Comment: Supplemental ranges: <140 mg/dL before meals <180 mg/dL all other times of the day Specimen Anatomical Collection Method Collection Time Receive d Time (Source) Location / / Volume Laterality Blood 12/08/2021 8:22 PM 2 8:22 EDT PM EDT Iker Cuevas MD POINT OF CARE TEST ORDERABLE S Performing Organization Address City/[facility]/ZIP Code Phon e Number [address] (ABNORMAL) POCT Glucose (12/08/2021 7:06 PM EDT) athologist Signature POC Glucose 442 (H) 65 - 199 [facility] mg/dL [facility] Comment: Supplemental ranges: <140 mg/dL before meals <180 mg/dL all other times of the day Specimen Anatomical Collection Method Collection Time Receive d Time (Source) Location / / Volume Laterality Blood 12/08/2021 7:06 PM 2 7:06 EDT PM EDT Iker Cuevas MD POINT OF CARE TEST ORDERABLE S Performing Organization Address City/[facility]/Z[place] [address] Magnesium (12/08/2021 6:02 PM EDT) athologist Signature Magnesium 0.86 0.69 - 1.07 [facility] mmol/L [facility]OR[facility]ORY Specimen Anatomical Collection Method Collection Time Receive d Time (Source) Location / / Volume Laterality Blood 12/08/2021 6:02 PM 2 6:36 EDT PM EDT Resulting Agency Comment Spec In Lab Iker Cuevas MD CHEMISTRY ORDERABLES Performing Organization Address City/[facility]/Z[place] [address] (ABNORMAL) Basic Metabolic Panel (non-fasting) (12/08/2021 6:02 PM EDT) athologist Signature Glucose Lvl 392 (H) 65 - 199 [facility] mg/dL [facility] Comment: Diabetes: >=200 mg/dL plus symp toms BUN 41 (H) 10 - 20 mg/dL [facility] LABORATORY Creatinine 1.44 0.80 - 1.50 [...] mmol/L [facility] LABORATORY CO2 20 (L) 22 - 31 mmol/L [facility] LABORATORY Anion Gap 16 [...] Organization Address City/State/[place] [address] (ABNORMAL) Differential, Automated (12/08/2021 6:02 PM EDT) [facility] gist Method Time Signature Neutrophils % 89.5 % [facility] LABORATORY Neutr Abs (ANC) 13.97 (H) 1.70 - [facility] 6.10 [facility] x10(3)/[facility] LABORATORY Lymphocytes % 3.7 % [facility] LABORATORY Lymphocytes Abs 0.6 (L) 0.9 - 3.2 [facility] x10(3)/[facility] LABORATORY Monocytes % 6.1 % [facility] LABORATORY Monocyte Abs 1.0 (H) 0.3 - 0.9 [facility] x10(3)/[facility] LABORATORY Eosinophils % 0.0 % [facility] LABORATORY Eosinophils Abs 0.0 0.0 - 0.4 [facility] x10(3)/[facility] LABORATORY Basophils % 0.2 % [facility] LABORATORY Basophils Abs 0.0 0.0 - 0.1 [facility] x10(3)/[facility] LABORATORY Immature Gran % 0.50 % [facility] [...] Organization Address City/State/[place] [address] (ABNORMAL) Hemogram (12/08/2021 6:02 PM EDT) Analysis Performed At Patho logist Time Signature WBC 15.6 (H) 4.0 - 9.5 [facility] x10(3)/[facility] LABORATORY RBC 4.05 (L) 4.58 - [facility] 5.54 [facility] x10(6)/[facility] LABORATORY Hemoglobin 11.8 (L) 13.7 - [facility] 16.5 g/dL [facility]ORAT[facility] Hematocrit 35.8 (L) 40.5 - [facility] 48.5 % [facility] MCV 88.4 82.9 - [facility] 93.1 [facility] LABORATORY MCH 29.1 27.5 - [facility] ZHAORY[facility] 32.1 pg [facility]AT[facility] MCHC 33.0 32.0 - [facility] ZHAORYAN 35.7 g/dL [facility]ORAT[facility] Platelets 178 145 - 357 [facility] x10(3)/[facility] LABORATORY RDWSD 49.3 (H) 36.0 - [facility] ZHAORYAN 45.0 [facility] LABORATORY RDWCV 15.1 (H) 11.4 - [facility] RYAN 13.8 % [facility] MPV 10.4 7.6 - 12.9 [facility] fL [facility] nRBC % Auto 0.0 % [facility] LABORATORY nRBC Abs Auto 0.000 0.000 - [facility] ZHAORYAN 0.000 [facility] x10(3)/[facility] LABORATORY Specimen Anatomical Collection Method Collection Time Receive d Time (Source) Location / / Volume Laterality Blood 12/08/2021 6:02 PM 6:36 EDT PM EDT Resulting Agency Comment Spec In Lab [facility]OWN HEMATOLOGY ORDERABLES Performing Organization Address City/State/[place] [address] (ABNORMAL) Troponin (12/08/2021 6:02 PM EDT) P athologist Signature Troponin-T 0.89 (H) 0.00 - [facility] 0.00 ng/mL [facility]ATORY Comment: The [...] Definition of Myocardial Infarction. Journal of the [place] [employer] 2012;60:1581-98 Specimen Anatomical Collection Method Collection Time Receive d Time (Source) Location / / Volume Laterality Blood 12/08/2021 6:02 PM 6:36 EDT PM EDT Resulting Agency Comment Spec In Lab Iker Cuevas MD CHEMISTRY ORDERABLES Performing Organization Address City/State/ZIP Code Phon e Number [place] [id number]OS[address] COVID-19 PCR (12/08/2021 5:00 PM EDT) [facility] Method Time Signature SARS-CoV-2 Not Detected Not Detected [facility] RNA PCR [facility] LABORATORY Comment: This result should be [...] using the Simplexa COVID-19 Direct Assay by [employer] as authorized by the FDA issued Emergency [...] fact sheets at the following FDA website: https://www.fda.gov/medical-devices/iebliktdohr-bqcevxs-1650-otrie-73-nhepncvma- amh-zwrteohfvrhwfi-mpqvfrc-devices/egkbo-skwmstjhcsg-bfwy SARS-CoV-2 Source MAINTENANCE [employer] UTILITIES SUPERVISOR Swab [facility] LABORATORY Specimen (Source) Anatomical Collection Method Collection Time Re ceived Time Location / / Volume Laterality Nasopharyngeal Swab 12/08/2021 5:00 12/08 PM EDT 6:03 PM EDT Comment: Symptoms->Surveillance Resulting Agency Comment Spec In Lab Iker Cuevas MD MICROBIOLOGY - GENERAL ORDER ROBSON Performing Organization Address City/State/[place] [address] EKG 12 Lead (12/08/2021 4:40 PM EDT) Component Value Ref Range Test Analysis Performed Pathologis t Method Time At Signature Ventricular rate 78 BPM MUSE SYSTEM Atrial Rate 78 BPM MUSE SYSTEM P-R Interval 152 ms MUSE SYSTEM QRS Duration 96 ms MUSE SYSTEM Q-T Interval 396 ms MUSE SYSTEM QTC Calculated 451 ms MUSE SYSTEM (Bezet) Calculated P [place] 44 degrees MUSE SYSTEM Calculated R [place] -31 degrees MUSE SYSTEM Calculated T [place] 124 degrees MUSE SYSTEM INTERPRETATION Normal sinus [...] POC Glucose 400 (H) 65 - 199 [facility] mg/dL [facility] Comment: Supplemental ranges: <140 mg/dL before meals <180 mg/dL all other times of the day Specimen Anatomical Collection Method Collection Time Receive d Time (Source) Location / / Volume Laterality Blood 12/08/2021 4:34 PM 2 4:34 EDT PM EDT Iker Cuevas MD POINT OF CARE TEST ORDERABLE S Performing Organization Address City/State/[place] [address] documented in this encounter [...] Given 11/23 10:30 AM EDT 300 mcg (MARKETING WRITER) ONCE PRN, Starting on Wed12/10/21 at 1030, [...] 10 mg 1004 (Given - Provider: Emma Gracia RN) 10 mg, Oral, DAILY, First dose [...] Reason: Transfer to a Procedural area)1230 (BANNER Unhold - Provider: Admin Adt) 650 mg, [...] Reason: Transfer to a Procedural area)1230 ([facility]ANNER Unhold - Provider: Admin Adt) 10 mg, [...] (Intra-Procedure), Routine niCARdipine (Cardene) (100 mcg/mL) dilution (MARKETING WRITER) (CANCELED) 1030 (Given - Provider: Vitaliy Nobles [...] episode. & nbsp; For persistent hypoglycemia, con dementia program director longer-acting treatment for the duration of the [...]
Routine documented in this encounter Care Teams Bull Chain Operator Relationship Specialty Start Date End Date Lovely Vicente MD PCP - General 04/16/[address] [place] [address] documented as of this encounter
--- OUTSIDE RECORDS SUMMARY | 2022-04-13 08:08 | XMS_ITS | Encounter Summary ---
:1945 Author Organization [facility] [place] [address] Care Team Providers Name Role Phone Lovely Vicente MD Primary Care Provider Encounter Details Date Type Department Care Team Description 03/20/2021 Ancillary Procedure Radiology [facility] [place] [address] [place] [address] [phone] Social History Tobacco Use Types Packs/Day Years [...] Dolan MD [facility] [place] [address] (Wo rk) 05/28/2022 Laboratory Appointment Lab 05/28/2022 Office Visit Cardiology Zulma Dolan MD [facility] [place] [address] Liz Poole PA [facility] [place] [address] 06/10/2022 Office Visit Dermatology Laura Scherer MD [facility] ER [address] [place], [place] [address] (Wo rk) documented as [...] City/State/ZIP Code Phon e Number [place], [place] documented in this encounter Visit Diagnoses Not on filedocumented in this encounter Care Teams Reformatory Attendant Relationship Specialty Start Date End Date Lovely Vicente MD PCP - General 04/16/[address] [place] [address] documented as of this encounter
--- OUTSIDE RECORDS SUMMARY | 2022-04-13 08:08 | XMS_ITS | Encounter Summary ---
:1945 Author Organization [facility] [place] [address] Care Team Providers Name Role Phone Lovely Vicente MD Primary Care Provider Reason for Referral Diagnostic Test (Routine) - Closed Specialty Diagnoses / Procedures Referred By Contact Refer red To Contact Cardiology Diagnoses Chronic systolic heart failure Danette Maxwell APRN [facility] Non-Inv Card Lab Procedures Echocardiogram Transthoracic(Leb) [facility] [place] [address] [place] [address] Referral ID Status Reason Start Date Expiration Date Visits V isits Requested Authorized [id number] Closed Specialty 07/17/2019 09/14/2019 1 1 Service Requested Reason for Visit Diagnostic Test (Routine) - Closed Specialty Diagnoses / Procedures Referred By Contact Refer red To Contact Cardiology Diagnoses Chronic systolic heart failure Danette Maxwell APRN [facility] Non-Inv Card Lab Procedures Echocardiogram Transthoracic(Leb) [facility] [address] [address] [place] [address] Referral ID Status Reason Start Date Expiration Date Visits V isits Requested Authorized [id number] Closed Specialty 07/17/2019 09/14/2019 1 1 Service Requested Encounter Details Date Type Department Care Team Description 07/28/2019 Hospital Encounter Non-Invasive Chronic s ystolic heart [place] [address] Social History Tobacco Use Types Packs/Day [...] Zulma Dolan MD [facility] [address] [place], [place] [address] (Wo rk) 05/28/2022 Laboratory Appointment Lab 05/28/2022 Office Visit Cardiology Zulma Dolan MD [facility] [place] [address] Liz Poole PA [facility] [place] [address] 06/10/2022 Office Visit Dermatology Laura Scherer MD [facility] [address] TEJA GR-DERMAT [place], [place] [address] (Wo rk) documented as of [...] Mccollum ? (Age): 1945(74y) Med Rec#: ? [id number] ?Sex: ?M ? Site Loc: ? [facility] ?Ht / Wt: ??172(cm)/81(kg) Pt. Loc: ?Echo Lab ?BSA: ?1.94 Study Date: ?? 07/28/2019 ?Pt. Type: Outpatient Tape: ? Referring: MARY ELLEN Reading: Ifeanyi Truong ([id number]) Taper Machine: Fadumo Flanagan RDCS, FASE Diagnosis: *Chronic systolic [...] E-wave Vmax ?1 ?m/sec ? MV deceleration [id number] ? msec ? MV A-wave Vmax ?1 [...] ? Pulmonic Valve/Qp:Qs ?Value ?Units (Range) ? LA end-diastolic Vma1.1 ?m/sec ? Wall Motion: Segment Name ?Rest ? Base-Anteroseptal ?? Normal ? Base-Anterior ? Normal ? Base-Anterolateral ??Normal ? Base-Posterolateral Normal ? Base-Inferior ? Akinetic ? Base-Inferoseptal ?? Normal ? Mid-Anteroseptal ?Normal ? Mid-Anterior ?Hypokinetic ? Mid-Anterolateral ?? Normal ? Mid-Posterolateral ??Normal ? Mid-Inferior ?Hypokinetic ? Mid-Inferoseptal ?Normal ? [place]-Septal ? Normal ? [place]-Anterior ? Hypokinetic ? [place]-Lateral ?Normal ? [place]-Inferior ? Akinetic ? [place]-Tip ?Hypokinetic ? This report has been electronically sign ed by: _ Ifeanyi Truong M.D. ? 07/28/2019 0 8:38:01 Images reviewed and interpretation verif ied [facility] Cardiac Ultrasound Laboratory Procedure Note Ifeanyi Truong MD - 07/28/2019Formatt ing of this note might be different from the original. Procedure: Transthoracic Echocardiogram Patient: NATALYA MCBRIDE(Age): [birth year]74y) Med Rec#: [id number] Sex: M Site Loc: [facility] Ht / Wt: 172(cm)/81(kg) Pt. Loc: Echo Lab BSA: 1.94 Study Date: 07/28/2019 Pt. Type: Outpati ent Tape: Referring: MARY ELLEN Reading: Ifeanyi Truong ([id number]) Taper Machine: Fadumo Flanagan [facility] Diagnosis: *Chronic systolic (congestive) heart fa [...] MV E-wave Vmax 1 m/sec MV deceleration myly316.5 msec MV A-wave Vmax 1 m/sec MV [...] 0.7 ratio Pulmonic Valve/Qp:Qs Value Units (Range) LA end-diastolic Vma1.1 m/sec Wall Motion: Segment Name Rest Base-Anteroseptal Normal Base-Anterior Normal Base-Anterolateral Normal Base-Posterolateral Normal Base-Inferior Akinetic Base-Inferoseptal Normal Mid-Anteroseptal Normal Mid-Anterior Hypokinetic Mid-Anterolateral Normal Mid-Posterolateral Normal Mid-Inferior Hypokinetic Mid-Inferoseptal Normal [place]-Septal Normal [place]-Anterior Hypokinetic [place]-Lateral Normal [place]-Inferior Akinetic [place]-Tip Hypokinetic This report has been electronically sign ed by: _ Ifeanyi Truong M.D. 07/28/2019 08:38:0 1 Images reviewed and interpretation elvie hwang [facility] Cardiac Ultrasound Laboratory Danette [...] Routine documented in this encounter Care Teams Wave Guide Assembler Relationship Specialty Start Date End Date Lovely Vicente MD PCP - General 04/16/[address] [place] [address] documented as of this encounter
--- OUTSIDE RECORDS SUMMARY | 2022-04-13 08:08 | XMS_ITS | Encounter Summary ---
:1945 Author Organization [place] [address] Care Team Providers Name Role Phone Lovely Vicente MD Primary Care Provider Encounter Details Date Type Department Care Team Description 03/20/2021 Ancillary Procedure Radiology Library [place] [address] [place] [address] [phone] Social History Tobacco Use Types Packs/Day Years [...] MD [facility] er [place], [place] [address] (Wo rk) 05/28/2022 Laboratory Appointment Lab 05/28/2022 Office Visit Cardiology Zulma Dolan MD [facility] [place] [address] Liz Poole PA [facility] [place] [address] 06/10/2022 Office Visit Dermatology Laura Scherer MD [facility] ER DR [address]-DERMAT [place], [place] [address] (Wo rk) documented as [...] Address City/State/ZIP Code Phon e Number [place], [place] documented in this encounter Visit Diagnoses Not on filedocumented in this encounter Care Teams Servicing Manager Relationship Specialty Start Date End Date Lovely Vicente MD PCP - General 04/16/[address] [place] [address] documented as of this encounter
--- OUTSIDE RECORDS SUMMARY | 2022-04-13 08:08 | XMS_ITS | Encounter Summary ---
:1945 Author Organization [facility] [place] [address] Care Team Providers Name Role Phone Lovely Vicente MD Primary Care Provider Encounter Details Date Type Department Care Team Description 08/15/2018 Laboratory Lab 3L Katalina Chronic systoli c heart failure; Appointment [facility] ASCVD (ar teriosclerotic cardiovascular disease) [place] [address] Social History Tobacco Use Types [...] MD [facility] er [place], [place] [address] (Wo rk) 05/28/2022 Laboratory Appointment Lab 05/28/2022 Office Visit Cardiology Zulma Dolan MD [facility] [place] [address] Liz Poole PA [facility] [place] [address] 06/10/2022 Office Visit Dermatology Laura Scherer MD [facility] ER DR TEJA GR-DERMAT [place], [place] [address] (Wo rk) documented [...] - 199 [facility] mg/dL [facility] Comment: Diabetes: >=200 mg/dL plus symp toms BUN 21 (H) 10 - 20 mg/dL [facility] 15 mmol/L [facility] Calcium 9.0 8.5 - [...] of body mass or the acutely ill. http://[employer]/[facility]ALESTERnkf eGFR 79 >=60 mL/min/1.73 m?? [facility] Comment: The eGFR was calculated using the CKD-EP I equation. As with all creatinine based estimates of kidney function, eGFR values calculated with the CKD-EPI equation are not accurate in patients wi th acute kidney failure, extremes of body mass or the acutely ill. http://[employer]/[facility]STERnkf Specimen Anatomical Collection Method Collection Time Receive d Time (Source) Location / / Volume Laterality Blood specimen 08/15/2018 8:04 AM 019 8:20 (specimen) EST AM EST Resulting Agency Comment Spec In Lab Danette Maxwell APRN CHEMISTRY ORDERABLES Performing Organization Address City/State/[place] [address] Lipid Panel (08/15/2018 8:04 AM EST) P athologist Signature Chol, Total 75 mg/dL [facility] Comment: Lower Risk: <200 mg/dL Average Risk: 200-239 mg/dL Higher Risk: >of=114 mg/dL Triglycerides 185 mg/dL [facility] Comment: Average Risk/Lower Risk: <150 mg/dL Borderline High Risk: 150-199 mg/dL High Risk: 200-499 mg/dL Very High Risk: >ua=090 mg/dL HDL 32 mg/dL [facility] Comment: Males: ?? Higher Risk: <40 mg/dL Females: ?? HIgher Risk: <50 mg/dL LDL Cholesterol 6 mg/dL [facility] Comment: Lowest Risk: <100 mg/dL Lower Risk: 100-129 mg/dL Borderline High Risk: 130-159 mg/dL High Risk: 160-189 mg/dL Very High Risk: >ho=901 mg/dL Chol/HDL Ratio 2.3 ratio [facility] Lipid Interpretation See Note [facility] Comment: Lipid management should be guided by a p atient? s ASCVD risk, goals and preferences. ACC/AHA Guidelines recommend high intens ity statin if clinical ASCVD or LDL greater than or equal to 190 mg/dL. http://[employer].com/VBC-WLP-Lnobitkhc Adults aged 40-75 with LDL 70-189 mg/dL should have their 10 year ASCVD risk estimated with the ACC/AHA ASCVD risk es timator http://tools.acc.org/PYDQW-Hmqb-Vcnwqdzf r/ Statin should be discussed if risk [...] Organization Address City/State/[place] [address] (ABNORMAL) pro-Brain Natriuretic Peptide (08/15/2018 8:04 AM EST) athologist Signature ProBNP 1,797 (H) <=125 [facility] pg/mL [facility] Specimen Anatomical Collection Method Collection Time Receive d Time (Source) Location / / Volume Laterality Blood specimen 08/15/2018 8:04 AM 019 8:20 (specimen) EST AM EST Resulting Agency Comment Spec In Lab Danette Maxwell APRN CHEMISTRY ORDERABLES Performing Organization Address City/State/[place] [address] documented in this encounter Visit Diagnoses Diagnosis Chronic systolic heart failure ASCVD (arteriosclerotic cardiovascular d isease) Unspecified cardiovascular disease documented in this encounter Care Teams Tax Examiner Relationship Specialty Start Date End Date Lovely Vicente MD PCP - General 04/16/[address] [place] [address] documented as of this encounter
--- OUTSIDE RECORDS SUMMARY | 2022-04-13 08:08 | XMS_ITS | Encounter Summary ---
:1945 Author Organization [facility] [place] [address] Care Team Providers Name Role Phone Lovely Vicente MD Primary Care Provider Encounter Details Date Type Department Care Team Description 08/26/2018 Transcribe Orders Laboratory Lovely Vicente, Deferred diagnosis [facility] on axis I [address] [address] [place], [place] [phone] Social History Tobacco Use Types Packs/Day Years [...] Dolan MD [facility] [place], [place] [address] (Wo rk) 05/28/2022 Laboratory Appointment Lab 05/28/2022 Office Visit Cardiology Zulma Dolan MD [facility] [place] [address] Liz Poole PA [facility] [place] [address] 06/10/2022 Office Visit Dermatology Laura Scherer MD [facility] DR [address]MAT [place], [place] [address] (Wo rk) documented as of this encounter Visit Diagnoses Diagnosis Deferred diagnosis on axis I Other unknown and unspecified cause of m orbidity or mortality documented in this encounter Care Teams Clinical Implementation Specialist Relationship Specialty Start Date End Date Lovely Vicente MD PCP - General 04/16/15 [facility] [address] [place] [address] documented as of this encounter
--- OUTSIDE RECORDS SUMMARY | 2022-04-13 08:08 | XMS_ITS | Encounter Summary ---
:1945 Author Organization [facility] [place] [address] Care Team Providers Name Role Phone Lovely Vicente MD Primary Care Provider Reason for Visit Reason Comments Establish Care Atrial Fibrillation Congestive Heart Failure Cardiomyopathy Encounter Details Date Type Department Care Team Description 09/06/2019 [facility], Ischemic cardiomyopathy Osvaldo STRANGE [address] [place], [place] CARDIOLOGY DEPT. [address] [place] [address] [phone] Social History Tobacco Use Types Packs/Day Years [...] today For any questions, call my office: [phone] To access your health care information, go to the web at: [email or web address] (you will need to register) For educational materials: [email or web address] Karel TRAMMELL.[facility], Clinical Cardiac Electrophysiology, [facility], [facility] A Healthy Heart: After Your Visit [...] least 2 servings of fish a week. [place], mackerel, mcfadden, sardines, and chunk light tuna [...] irregular heartbeat. After you call 911, the resistance welding machine operator may tell you to chew [...] more? Visit our health information library at [email or web address] Groupsaint [email or web address]. You can also view health information on [employer], your personal patient account. Log in or sign up today. Enter F075 in the search box to learn more about A Healthy Heart: After Your Visit. ?? [phone] [employer] documented in this encounter Progress Notes Karel Mcelroy MD - 09/06/2019 2:20 PM EST Images from the original note were not included. Section of Cardiology/Cardiac Electrophysiology [facility] Clinical Cardiac Electrophysiology Consult Patient ID Don Fatima 1945 [id number] Don Fatima is referred to the EP clinic by Danette Maxwell APRN PhD Chief Complaint Dyspnea on exertion Ischemic cardiomyopathy History This is a 74 y.o. male following up/being seen in clinic for evaluation for ongoing anticoagulation. He has a Koasa5Tbze score of ~ 6-7. 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, [...] on phone: None Gets together: None Attends mandaeism service: None Active member of club or [...] [facility] T: [phone] F: [phone] 35 minutes of this 40 minute encounter were spent in counselling, as described above Cc: MD Danette Cr APRN PhD Janett Espino DPM documented in this encounter Plan of Treatment Upcoming Encounters Date Type Specialty Care Team Description 05/28/2022 Appointment Cardiology Zulma Dolan MD [facility] [place], [place] [address] (Wo rk) 05/28/2022 Laboratory Appointment Lab 05/28/2022 Office Visit Cardiology Zulma Dolan MD [facility] [place] [address] Liz Poole PA [facility] [place] [address] 06/10/2022 Office Visit Dermatology Laura Scherer MD [facility] DR [address]-DERMAT [place], [place] [address] (Wo rk) documented as of [...] 446 ms MUSE SYSTEM (Bezet) Calculated P [place] 37 degrees MUSE SYSTEM Calculated R [place] -23 degrees MUSE SYSTEM Calculated T [place] 116 degrees MUSE SYSTEM INTERPRETATION Normal sinus rhythm MUSE SYSTEM Inferior infarct (cited on or before 25-JAN-2013) ST & T wave abnormality, consider anterolateral ischemia Abnormal ECG When compared with ECG of 19-AUG-2017 10:23, No significant change was found Confirmed by MD Cande, Michael ([id number]) on 09/08/2019 10:22:4 7 AM Specimen Anatomical [...] disease documented in this encounter Care Teams Stock Buyer Relationship Specialty Start Date End Date Lovely Vicente MD PCP - General 04/16/[address] [place] [address] documented as of this encounter
--- OUTSIDE RECORDS SUMMARY | 2022-04-13 08:08 | XMS_ITS | Encounter Summary ---
:1945 Author Organization [facility] Address [facility] [place] [address] Care Team Providers Name Role Phone Lovely Vicente MD Primary Care Provider Encounter Details Date Type Department Care Team Description 01/02/2020 Office Visit Dermatology at [facility] keratoses; Abdelrahman HOOPER MD History of melanoma; [address] [facility] History of dysplastic nevus; [place] [address] Multiple benign nevi; [phone] [facility] Seborrheic yossi [place]; RD-DERMATOLGY Skin exam for malignant neoplasm [place], [place] [address] Social History Tobacco Use [...] Dolan MD [facility] Dr [place], [place] [address] (Wo lissa) 05/28/2022 Laboratory Appointment Lab 05/28/2022 Office Visit Cardiology Zulma Dolan MD [facility] [place] [address] Liz Poole PA [facility] [place] [address] 06/10/2022 Office Visit Dermatology Laura Scherer MD [facility] DR [address] GR[address]DERMAT [place], [place] [address] (Wo lissa) documented as of [...] skin documented in this encounter Care Teams Auditor Tax Relationship Specialty Start Date End Date Lovely Vicente MD PCP - General 04/16/15 [facility] [address] [place] [address] documented as of this encounter
--- OUTSIDE RECORDS SUMMARY | 2022-04-13 08:08 | XMS_ITS | Encounter Summary ---
:1945 Author Organization [facility] [place] [address] Care Team Providers Name Role Phone Lovely Vicente MD Primary Care Provider Encounter Details Date Type Department Care Team Description 12/07/2021 External Results Administration [facility] [place] [address] Social History Tobacco Use Types Packs/Day [...] Cardiology Zulma Dolan MD [facility] er [address] [place] [address] (Wo rk) 05/28/2022 Laboratory Appointment Lab 05/28/2022 Office Visit Cardiology Zulma Dolan MD [facility] [place] [address] Liz Poole PA [facility] [place] [address] 06/10/2022 Office Visit Dermatology Laura Scherer MD [facility] ER DR [address]-DERMAT [place], [place] [address] (Wo rk) documented as of [...] filedocumented in this encounter Care Teams Farm Tractor Operator Relationship Specialty Start Date End Date Lovely Vicente MD PCP - General 04/16/[address] [place] [address] documented as of this encounter
--- OUTSIDE RECORDS SUMMARY | 2022-04-13 08:08 | XMS_ITS | Encounter Summary ---
:1945 [place] [address] Care Team Providers Name Role Phone Lovely Vicente MD Primary Care Provider Encounter Details Date Type Department Care Team Description 03/20/2021 Telephone Neurology at [facility] Hugo Gaston MD [facility] [place] [address] [place] [address] [phone] (Wo rk) Social History Tobacco Use Types [...] - 03/20/2021 6:03 PM EDT Call from [facility]. 76 M with h/o DM. CABG, [...] Gaston MD Department of Neurology Pager # [phone] documented in this encounter Plan of Treatment Upcoming Encounters Date Type Specialty Care Team Description 05/28/2022 Appointment Cardiology Zulma Dolan MD [facility] [place], [place] [address] (Wo rk) 05/28/2022 Laboratory Appointment Lab 05/28/2022 Office Visit Cardiology Zulma Dolan MD [facility] [place] [address] Liz Poole PA [facility] [place] [address] 06/10/2022 Office Visit Dermatology Laura Scherer MD [facility] DR [address]-DERMAT [place], [place] [address] (Wo rk) documented as of this encounter Visit Diagnoses Not on filedocumented in this encounter Care Teams Microsoft Exchange Administrator Relationship Specialty Start Date End Date Lovely Vicente MD PCP - General 04/16/[address] [place] [address] documented as of this encounter
--- OUTSIDE RECORDS SUMMARY | 2022-04-13 08:08 | XMS_ITS | Encounter Summary ---
:1945 Author Organization [facility] [place] [address] Care Team Providers Name Role Phone Lovely Vicente MD Primary Care Provider Encounter Details Date Type Department Care Team Description 12/07/2021 Telephone Cardiology Eddi Briceño Jr., [facility] [place] [address] [facility] [phone] CARDIOLOGY DEPT [place], [place] [address] (Wo rk) Social History Tobacco [...] [facility] Referring Provider: Marisela Dean, SURVIVAL EQUIPMENT REPAIRER [address] [place] [address] Don Veda Kushal 76 y.o. w / [...] bpm, LAFB, poor R wave progression, septal MA, and lateral STD, overall no significantchange from [...] Zulma Dolan MD [facility] [place] [address] (Wo rk) 05/28/2022 Laboratory Appointment Lab 05/28/2022 Office Visit Cardiology Zulma Dolan MD [facility] [place] [address] Liz Poole PA [facility] [place] [address] 06/10/2022 Office Visit Dermatology Laura Scherer MD [facility] DR [address] GR-DERMAT [place], [place] [address] (Wo rk) documented as of this encounter Visit Diagnoses Not on filedocumented in this encounter Care Teams Film Composer Relationship Specialty Start Date End Date Lovely Vicente MD PCP - General 04/16/15 [facility] [address] [place] [address] documented as of this encounter
--- OUTSIDE RECORDS SUMMARY | 2022-04-13 08:08 | XMS_ITS | Encounter Summary ---
:1945 Author Organization [facility] [place] [address] Care Team Providers Name Role Phone Lovely Vicente MD Primary Care Provider Encounter Details Date Type Department Care Team Description 08/15/2018 Office Visit Cardiology at [facility] Danette Maxwell Chronic systolic heart failu re; [facility] A, VISUAL MERCHANDISING ASSISTANT Cardiomyopathy, ischemic; [facility] ASCVD (arteriosclerotic card iovascular disease); [place], [place] Essential hypertension; [phone] CARDIOLOGY MARIA VICTORIA on CPAP [phone] [place], [place] [address] Social History Tobacco Use Types [...] EST documented in this encounter Progress Notes Daentte Maxwell, VISUAL MERCHANDISING ASSISTANT - 08/15/2018 9:00 AM EST Images [...] K+ 4.6 today 6. Post-op atrial fibrillation [id number] (CHF, HTN, DM, vascular disease, thromboembolism) Amiodarone discontinued Continue coumadin INR managed by PCP. 2.1 today 7. PAD 08/06/2017: Right 1st, 2nd, 3rd toe amputation 08/11/2017: Left??femoral arterial access, RLE??angiogram, Balloon angioplasty of R PT with Eleazar 2.5 x 80 10/25/2017: right popliteal-pedal bypass at [facility] 8. Hypothyrodism S/p thyroidectomy for goiter Continue [...] MD [facility] [address] [place] [address] (Wo rk) 05/28/2022 Laboratory Appointment Lab 05/28/2022 Office Visit Cardiology Zulma Dolan MD [facility] [place] [address] Liz Poole PA [facility] [place] [address] 06/10/2022 Office Visit Dermatology Laura Scherer MD [facility] ER [address] OLOGY [place], [place] [address] (Wo rk) documented as of this encounter Results Lipid Panel (08/15/2018 8:04 AM EST) athologist Signature Chol, Total 75 mg/dL [facility] Comment: Lower Risk: <200 mg/dL Average Risk: 200-239 mg/dL Higher Risk: >mw=683 mg/dL Triglycerides 185 mg/dL [facility] Comment: Average Risk/Lower Risk: <150 mg/dL Borderline High Risk: 150-199 mg/dL High Risk: 200-499 mg/dL Very High Risk: >ez=446 mg/dL HDL 32 mg/dL [facility] Comment: Males: ?? Higher Risk: <40 mg/dL Females: ?? HIgher Risk: <50 mg/dL LDL Cholesterol 6 mg/dL [facility] Comment: Lowest Risk: <100 mg/dL Lower Risk: 100-129 mg/dL Borderline High Risk: 130-159 mg/dL High Risk: 160-189 mg/dL Very High Risk: >fr=519 mg/dL Chol/HDL Ratio 2.3 ratio [facility] Lipid Interpretation See Note [facility] Comment: Lipid management should be guided by a p atient? s ASCVD risk, goals and preferences. ACC/AHA Guidelines recommend high intens ity statin if clinical ASCVD or LDL greater than or equal to 190 mg/dL. http://GlassesOffurl.com/FNP-HCR-Mlszcgbxr Adults aged 40-75 with LDL 70-189 mg/dL should have their 10 year ASCVD risk estimated with the ACC/AHA ASCVD risk es timator http://tools.acc.org/JLSOZ-Pslw-Rvxvyyfg r/ Statin should be discussed if risk [...] Organization Address City/State/[place] [address] (ABNORMAL) Basic Metabolic Panel (non-fasting) (08/15/2018 8:04 AM EST) P athologist Signature Glucose Lvl 116 65 - 199 [facility] mg/dL [facility] Comment: Diabetes: [...] LABORATORY Calcium 9.0 8.5 - 10.5 mg/dL [facility] Estimated GFR 68 >=60 mL/min/1.73 m?? [facility] Comment: The eGFR was calculated using the CKD-EP I equation. As with all creatinine based estimates of kidney function, eGFR values calculated with the CKD-EPI equation are not accurate in patients wi th acute kidney failure, extremes of body mass or the acutely ill. http://Vendly/[facility] eGFR 79 >=60 mL/min/1.73 m?? [facility] Comment: The eGFR was calculated using the CKD-EP I equation. As with all creatinine based estimates of kidney function, eGFR values calculated with the CKD-EPI equation are not accurate in patients wi th acute kidney failure, extremes of body mass or the acutely ill. http://Vendly/[facility] Specimen Anatomical Collection Method Collection Time Receive d Time (Source) Location / / Volume Laterality Blood specimen 08/15/2018 8:04 AM 019 8:20 (specimen) EST AM EST Resulting Agency Comment Spec In Lab Danette Maxwell APRN CHEMISTRY ORDERABLES Performing Organization Address City/State/ZIP Code Phon e Number [address] (ABNORMAL) pro-Brain Natriuretic Peptide (08/15/2018 8:04 AM EST) P athologist Signature ProBNP 1,797 (H) <=125 [facility] pg[facility]mL [facility] Specimen Anatomical Collection Method Collection Time Receive d Time (Source) Location / / Volume Laterality Blood specimen 08/15/2018 8:04 AM 019 8:20 (specimen) EST AM EST Resulting Agency Comment Spec In Lab Danette Maxwell APRN CHEMISTRY ORDERABLES Performing Organization Address City/State/[place] [address] documented in this encounter Visit Diagnoses Diagnosis Chronic systolic heart failure Cardiomyopathy, ischemic Other specified forms of chronic ischemi c heart disease ASCVD (arteriosclerotic cardiovascular d isease) Unspecified cardiovascular disease Essential hypertension Unspecified essential hypertension MARIA VICTORIA on CPAP Obstructive sleep apnea (adult) (pediatr ic) documented in this encounter Care Teams Scientific Research Manager Relationship Specialty Start Date End Date Lovely Vicente MD PCP - General 04/16/15 [address] [place] [address] documented as of this encounter
--- OUTSIDE RECORDS SUMMARY | 2022-04-13 08:08 | XMS_ITS | Encounter Summary ---
:1945 Author Organization [place] [address] Care Team Providers Name Role Phone Lovely Vicente MD Primary Care Provider Encounter Details Date Type Department Care Team Description 11/07/2019 TH Visit Cardiology at [facility] Danette Maxwell (arteriosclerotic heart disease); (TeleHealth) [facility] STACIE Gomes Cardiomyopathy, ischemic; Drive [facility] S/P CABG x 3; [place], [place] MARIA VICTORIA (obstructive sleep apnea) on CPAP [phone] CARDIOLOGY [phone] [place], [place] [address] Social History Tobacco Use [...] regurgitation present. 07/07/2019 - 07/21/2019 Zio Patch Appraiser Land The patient had a minimum heart rate [...] at last check 6. Post-op atrial fibrillation [id number] (CHF, HTN, DM, vascular disease, thromboembolism) Amiodarone discontinued Continue coumadin INR managed by PCP 7. PAD 08/06/2017: Right 1st, 2nd, 3rd toe amputation 08/11/2017: Left??femoral arterial access, RLE??angiogram, Balloon angioplasty of R PT with Eleazar 2.5 x 80 10/25/2017: right popliteal-pedal bypass at [facility] Continue Coumadin 8. Hypothyrodism S/p thyroidectomy [...] Cardiology Zulma Dolan MD [facility] [place], [place] [address] (Wo rk) 05/28/2022 Laboratory Appointment Lab 05/28/2022 Office Visit Cardiology Zulma Dolan MD [facility] [place] [address] Liz Poole PA [facility] [place] [address] 06/10/2022 Office Visit Dermatology Laura Scherer MD [facility] [address] [place], [place] [address] (Wo rk) documented as of this encounter Visit Diagnoses Diagnosis ASHD (arteriosclerotic heart disease) Coronary atherosclerosis of unspecified type of vessel, sun'[place] or graft Cardiomyopathy, ischemic Other specified forms of chronic ischemi c heart disease S/P CABG x 3 Postsurgical aortocoronary bypass status MARIA VICTORIA (obstructive sleep apnea) on CPAP Obstructive sleep apnea (adult) (pediatr ic) documented in this encounter Care Teams Associate Professor Of Pathology Relationship Specialty Start Date End Date Lovely Vicente MD PCP - General 04/16/[address] [place], [place] [address] documented as of this encounter
--- OUTSIDE RECORDS SUMMARY | 2022-04-13 08:08 | XMS_ITS | Encounter Summary ---
:1945 Author Organization [facility] Address [facility] [address] [place] [address] Care Team Providers Name Role Phone Lovely Vicente MD Primary Care Provider Reason for Referral Diagnostic Test (Routine) - Closed Specialty Diagnoses / Procedures Referred By Contact Refer red To Contact Cardiology Diagnoses Chronic systolic heart failure Danette Maxwell APRN [facility] Non-Inv Card Lab Procedures Echocardiogram Transthoracic(Leb) [facility] [place] [address] [place] [address] Referral ID Status Reason Start Date Expiration Date Visits V isits Requested Authorized [id number] Closed Specialty 07/17/2019 09/14/2019 1 1 Service Requested Encounter Details Date Type Department Care Team Description 01/16/2019 Office Visit Cardiology at [facility] Danette Maxwell, Chronic systolic heart failu re; [facility] STACIE Cardiomyopathy, ischemic; Drive [facility] Hx of thyroid cancer; [place], [place] DR [place] (arteriosclerotic heart disease); [phone] CARDIOLOGY MARIA VICTORIA (obstructive sleep apnea) on CPAP [phone] [place], [place] [address] (Wo rk) Social History Tobacco Use Types [...] K+ 4.6 today 6. Post-op atrial fibrillation [id number] 7 (CHF, HTN, DM, vascular disease, thromboembolism) Amiodarone discontinued Continue coumadin INR managed by PCP. 2.1 today 7. PAD 08/06/2017: Right 1st, 2nd, 3rd toe amputation 08/11/2017: Left??femoral arterial access, RLE??angiogram, Balloon angioplasty of R PT with Eleazar 2.5 x 80 10/25/2017: right popliteal-pedal bypass at [facility] 8. Hypothyrodism S/p thyroidectomy for [...] Description 05/28/2022 Appointment Cardiology Zulma Dloan MD [facility] [place], [place] [address] (Wo rk) 05/28/2022 Laboratory Appointment Lab 05/28/2022 Office Visit Cardiology Zulma Dolan MD [facility] [place] [address] Liz Poole PA [facility] [place] [address] 06/10/2022 Office Visit Dermatology Laura Scherer MD [facility] [address] [place]LOG[place], [place] [address] (Wo rk) documented as of this encounter Results ECHOCARDIOGRAM COMPLETE W CONTRAST (07/28/2019 8:19 AM EST) athologist Signature EF 40 [facility] Anatomical Region Laterality Modality Other Specimen (Source) Anatomical Location Collection Method / Collectio n Time Received Time / Laterality Volume 07/28/2019 Narrative 07/28/2019 8:38 AM EST Procedure: ?Transthoracic Echocardiogram Patient: ?NATALYA Mccollum ? (Age): 1945(74y) Med Rec#: ? [id number] ?Sex: ?M ? Site Loc: ? [facility] ?Ht / Wt: ??172(cm)/81(kg) Pt. Loc: ?Echo Lab ?BSA: ?1.94 Study Date: ?? 07/28/2019 ?Pt. Type: Outpatient Tape: ? Referring: MARY ELLEN Reading: Ifeanyi Truong ([id number]) Hotel Recreational Facilities Manager: Fadumo Flanagan RDCS, REGINA Diagnosis: *Chronic [...] E-wave Vmax ?1 ?m/sec ? MV deceleration aert139.5 ? msec ? MV A-wave Vmax ?1 [...] ? Pulmonic Valve/Qp:Qs ?Value ?Units (Range) ? OH end-diastolic Vma1.1 ?m/sec ? Wall Motion: Segment Name ?Rest ? Base-Anteroseptal ?? Normal ? Base-Anterior ? Normal ? Base-Anterolateral ??Normal ? Base-Posterolateral Normal ? Base-Inferior ? Akinetic ? Base-Inferoseptal ?? Normal ? Mid-Anteroseptal ?Normal ? Mid-Anterior ?Hypokinetic ? Mid-Anterolateral ?? Normal ? Mid-Posterolateral ??Normal ? Mid-Inferior ?Hypokinetic ? Mid-Inferoseptal ?Normal ? Bendena-Septal ? Normal ? Bendena-Anterior ? Hypokinetic ? [place]-Lateral ?Normal ? [place]-Inferior ? Akinetic ? Bendena-Tip ?Hypokinetic ? This report has been electronically sign ed by: _ Ifeanyi Truong M.D. ? 07/28/2019 0 8:38:01 Images reviewed and interpretation [facility] Procedure Note Ifeanyi Truong MD - 07/28/2019Formatt ing of this note might be different from the original. Procedure: Transthoracic Echocardiogram Patient: NATALYA MCBRIDE(Age): [birth year]74y) Med Rec#: [id number] Sex: M Site Loc: [facility] Ht / Wt: 172(cm)/81(kg) Pt. Loc: Echo Lab BSA: 1.94 Study Date: 07/28/2019 Pt. Type: Outpati ent Tape: Referring: MARY ELLEN Reading: Ifeanyi Truong ([id number]) Hotel Recreational Facilities Manager: Fadumo Flanagan [facility], [place] Diagnosis: *Chronic systolic [...] MV E-wave Vmax 1 m/sec MV deceleration qxzx115.5 msec MV A-wave Vmax 1 m/sec MV [...] 0.7 ratio Pulmonic Valve/Qp:Qs Value Units (Range) OH end-diastolic Vma1.1 m/sec Wall Motion: Segment Name Rest Base-Anteroseptal Normal Base-Anterior Normal Base-Anterolateral Normal Base-Posterolateral Normal Base-Inferior Akinetic Base-Inferoseptal Normal Mid-Anteroseptal Normal Mid-Anterior Hypokinetic Mid-Anterolateral Normal Mid-Posterolateral Normal Mid-Inferior Hypokinetic Mid-Inferoseptal Normal Bendena-Septal Normal Bendena-Anterior Hypokinetic Bendena-Lateral Normal Bendena-Inferior Akinetic Bendena-Tip Hypokinetic This report has been electronically sign ed by: _ Ifeanyi Truong M.D. 07/28/2019 08:38:0 1 Images reviewed and interpretation verif ied [facility] Cardiac Ultrasound Laboratory Danette Maxwell APRN ECHO ORDERABLES (ABNORMAL) Basic Metabolic Panel (non-fasting) (01/16/2019 7:49 AM EDT) P athologist Signature Glucose Lvl 105 65 - 199 [facility] mg/dL [facility] [...] of body mass or the acutely ill. http://GT Energy/MATIvisionnkf eGFR 79 >=60 mL/min/1.73 m?? [facility] Comment: The eGFR was calculated using the CKD-EP I equation. As with all creatinine based estimates of kidney function, eGFR values calculated with the CKD-EPI equation are not accurate in patients wi th acute kidney failure, extremes of body mass or the acutely ill. http://GT Energy/[facility]kf Specimen Anatomical Collection Method Collection Time Receive d Time (Source) Location / / Volume Laterality Blood specimen 01/16/2019 7:49 AM 019 7:55 (specimen) EDT AM EDT Resulting Agency Comment Spec In Lab Danette Maxwell APRN CHEMISTRY ORDERABLES Performing Organization Address City/State/[place] [address] (ABNORMAL) pro-Brain Natriuretic Peptide (01/16/2019 7:49 AM EDT) P athologist Signature ProBNP 780 (H) <=125 pg/mL [facility] Specimen Anatomical Collection Method Collection Time Receive d Time (Source) Location / / Volume Laterality Blood specimen 01/16/2019 7:49 AM 019 7:55 (specimen) EDT AM EDT Resulting Agency Comment Spec In Lab Danette Maxwell CHOIR ACCOMPANIST CHEMISTRY ORDERABLES Performing Organization Address City/State/[place] [address] documented in this encounter Visit Diagnoses Diagnosis Chronic systolic heart failure Cardiomyopathy, ischemic Other specified forms of chronic ischemi c heart disease Hx of thyroid cancer Personal history of malignant neoplasm o f thyroid ASHD (arteriosclerotic heart disease) Coronary atherosclerosis of unspecified type of vessel, [place] or graft MARIA VICTORIA (obstructive sleep apnea) on CPAP Obstructive sleep apnea (adult) (pediatr ic) Chronic systolic heart failure documented in this encounter Care Teams Director Of Teacher Education Relationship Specialty Start Date End Date Lovely Vicente MD PCP - General 04/16/[address] [place] [address] documented as of this encounter
--- OUTSIDE RECORDS SUMMARY | 2022-04-13 08:08 | XMS_ITS | Encounter Summary ---
:1945 Author Organization [facility] [place] [address] Care Team Providers Name Role Phone Lovely Vicente MD Primary Care Provider Reason for Visit Reason Onset Date Comments Other 03/24/2019 cardiac clearance ne eded Encounter Details Date Type Department Care Team Description 03/24/2019 Telephone Cardiology at [facility] Danette Maxwell, Other (cardiac [facility] SOCIAL PROFESSIONALS clearance needed) [place] [address] CARDIOLOGY [place], [place] [address] (Wo rk) Social History Tobacco [...] AM EDT Leonela from [facility] [place] called requesting cardiac clearance for this patient who is to have a colonoscopy on 04/04/19. He is on anticoagulation and they will need to bridge him. Their phone # [phone], fax# [phone]. Thank you. documented in this encounter Plan of Treatment Upcoming Encounters Date Type Specialty Care Team Description 05/28/2022 Appointment Cardiology Zulma Dolan MD [facility] [place], [place] [address] (Wo rk) 05/28/2022 Laboratory Appointment Lab 05/28/2022 Office Visit Cardiology Zulma Dolan MD [facility] [place] [address] Liz Poole PA [facility] [place] [address] 06/10/2022 Office Visit Dermatology Laura Scherer MD [facility] DR [address] [place], [place] [address] (Wo rk) documented as of this encounter Visit Diagnoses Not on filedocumented in this encounter Care Teams Search Engine Marketing Manager Relationship Specialty Start Date End Date Lovely Vicente MD PCP - General 04/16/[address] [place] [address] documented as of this encounter
--- OUTSIDE RECORDS SUMMARY | 2022-04-13 08:08 | XMS_ITS | Encounter Summary ---
:1945 [place] [address] Care Team Providers Name Role Phone Lovely Vicente MD Primary Care Provider Encounter Details Date Type Department Care Team Description 12/07/2021 Ancillary Procedure [facility] Lovely murillo MD [facility] [address] [address] [place], [place] [phone] (Wo lissa) [phone] Social History Tobacco Use Types Packs/Day Years [...] Dolan MD [facility] [address] [place] [address] (Wo rk) 05/28/2022 Laboratory Appointment Lab 05/28/2022 Office Visit Cardiology Zulma Dolan MD [facility] [place] [address] Liz Poole PA [facility] [place] [address] 06/10/2022 Office Visit Dermatology Laura Scherer MD [facility] [address] [place], [place] [address] (Wo rk) documented [...] on filedocumented in this encounter Care Teams Dryland Farmer Relationship Specialty Start Date End Date Lovely Vicente MD PCP - General 04/16/[address] [place] [address] documented as of this encounter
--- OUTSIDE RECORDS SUMMARY | 2022-04-13 08:08 | XMS_ITS | Encounter Summary ---
:1945 [place] [address] Care Team Providers Name Role Phone Lovely Vicente MD Primary Care Provider Encounter Details Date Type Department Care Team Description 04/16/2021 [address] [facility] Liz Poole, Chronic systolic heart [facility] [place] [address] Cardiology Dept [phone] [place], [place] [address] Social History Tobacco Use Types [...] was feeling good. Interim events: Seen at [facility] after an episode of dizziness and per [...] regurgitation present. 07/07/2019 - 07/21/2019 Zio Patch Scrip Clerk The patient had a minimum heart [...] K+ 5.2 today 6. Post-op atrial fibrillation [id number] (CHF, HTN, DM, vascular disease, thromboembolism) On warfarin - recent labile INR Will discuss with PCP, option of Luis Daniel 7. PAD 08/06/2017: Right 1st, 2nd, 3rd toe amputation 08/11/2017: Left??femoral arterial access, RLE??angiogram, Balloon angioplasty of R PT 10/25/2017: right popliteal-pedal bypass at [facility] 8. Hypothyrodism S/p thyroidectomy for [...] Zulma Dolan MD [facility] [place], [place] [address] (Wo rk) 05/28/2022 Laboratory Appointment Lab 05/28/2022 Office Visit Cardiology Zulma Dolan MD [facility] [place] [address] Liz Poole PA [facility] [place] [address] 06/10/2022 Office Visit Dermatology Laura Scherer MD [facility] [address] GR[address]DERMAT [place], [place] [address] (Wo rk) documented as of this encounter Results (ABNORMAL) Basic Metabolic Panel (non-fasting) (04/16/2021 9:58 AM EDT) athologist Signature Glucose Lvl 77 65 - 199 [facility] mg/dL [facility] [...] Organization Address City/State/Z[place] [address] (ABNORMAL) pro-Brain Natriuretic Peptide [...] Organization Address City/State/ZIP [place] [address] documented in this encounter Visit Diagnoses Diagnosis Chronic systolic heart failure documented in this encounter Care Teams Slab Lifting Engineer Relationship Specialty Start Date End Date Lovely Vicente MD PCP - General 04/16/[address] [place] [address] documented as of this encounter
--- OUTSIDE RECORDS SUMMARY | 2022-04-13 08:08 | XMS_ITS | Encounter Summary ---
:1945 [place] [address] Care Team Providers Name Role Phone Lovely Vicente MD Primary Care Provider Encounter Details Date Type Department Care Team Description 08/15/2018 Laboratory Appointment Lab [facility] [place] [address] Social History Tobacco Use Types Packs/Day [...] MD [facility] er [address] [place], [place] [address] (Wo rk) 05/28/2022 Laboratory Appointment Lab 05/28/2022 Office Visit Cardiology Zulma Dolan MD [facility] [place] [address] Liz Poole PA [facility] [place] [address] 06/10/2022 Office Visit Dermatology Laura Scherer MD [facility] ER DR [address] [place], [place] [address] (Wo rk) documented as of this encounter Procedures Procedure Name Priority Date/Time Associated Diagnosis Comme nts PROTHROMBIN TIME Routine 08/15/2018 8:04 AM Resul ts for this EST procedure are i n the results section. documented in this encounter Results (ABNORMAL) Prothrombin Time (08/15/2018 8:04 AM EST) P athologist Signature PT 24.0 (H) 9.4 - 12.5 [facility] LABORATORY INR 2.1 [facility] [...] City/State/[place] [address] documented in this encounter Visit Diagnoses Not on filedocumented in this encounter Care Teams Farm Forestry And Garden Workers Relationship Specialty Start Date End Date Lovely Vicente MD PCP - General 04/16/[address] [place] [address] documented as of this encounter
--- OUTSIDE RECORDS SUMMARY | 2022-04-13 08:08 | XMS_ITS | Encounter Summary ---
:1945 Author Organization [facility] [place] [address] Care Team Providers Name Role Phone Lovely Vicente MD Primary Care Provider Encounter Details Date Type Department Care Team Description 03/20/2021 Ancillary Procedure Radiology Library at [place] [address] [place] [address] [phone] Social History Tobacco Use Types Packs/Day Years [...] MD [facility] er [address] [place], [place] [address] (Wo rk) 05/28/2022 Laboratory Appointment Lab 05/28/2022 Office Visit Cardiology Zulma Dolan MD [facility] [place] [address] Liz Poole PA [facility] [place] [address] 06/10/2022 Office Visit Dermatology Laura Scherer MD [facility] ER [address] [place], [place] [address] (Wo rk) documented as of [...] Organization Address City/State/ZIP Code Phon e Number [place], [place] documented in this encounter Visit Diagnoses Not on filedocumented in this encounter Care Teams Legislative Aide Relationship Specialty Start Date End Date Lovely Vicente MD PCP - General 04/16/[address] [place] [address] documented as of this encounter
--- OUTSIDE RECORDS SUMMARY | 2022-04-13 08:09 | XMS_ITS | Encounter Summary ---
:1945 Author Organization [facility] [place] [address] Care Team Providers Name Role Phone Lovely Vicente MD Primary Care Provider Encounter Details Date Type Department Care Team Description 09/06/2017 Orders Only Vascular Surgery at [facility] Ninfa Clark, [facility] [place] [address] Social History Tobacco Use Types Packs/Day [...] Dolan MD [facility] er [place], [place] [address] (Wo rk) 05/28/2022 Laboratory Appointment Lab 05/28/2022 Office Visit Cardiology Zulma Dolan MD [facility] [place] [address] [address] Poole PA [facility] [place] [address] 06/10/2022 Office Visit Dermatology Laura Scherer MD [facility] [address] [place], [place] [address] (Wo rk) documented as of this encounter Visit Diagnoses Not on filedocumented in this encounter Care Teams Metal Bonding Press Operator Relationship Specialty Start Date End Date Lovely Vicente MD PCP - General 04/16/[address] [place] [address] documented as of this encounter
--- OUTSIDE RECORDS SUMMARY | 2022-04-13 08:09 | XMS_ITS | Encounter Summary ---
:1945 Author Organization [facility] [place] [address] Care Team Providers Name Role Phone Lovely Vicente MD Primary Care Provider Encounter Details Date Type Department Care Team Description 08/19/2017 Office Visit Vascular Surgery at [place], PAD (peripheral artery [facility] EXTRUDER OPERATOR MULTIPLE disease) [facility] [place] VASC[place] SURG[place] [address] [place] [address] [phone] Social History Tobacco Use Types Packs/Day Years [...] MD [facility] [place], [place] [address] (Wo rk) 05/28/2022 Laboratory Appointment Lab 05/28/2022 Office Visit Cardiology Zulma Dolan MD [facility] [place] [address] Liz Poole PA [facility] [place] [address] 06/10/2022 Office Visit Dermatology Laura Scherer MD [facility] DR [address] [place], [place] [address] (Wo rk) documented as of this encounter Visit Diagnoses Diagnosis PAD (peripheral artery disease) Peripheral vascular disease, unspecified documented in this encounter Care Teams Mixing Supervisor Relationship Specialty Start Date End Date Lovely Vicente MD PCP - General 04/16/[address] [place] [address] documented as of this encounter
--- OUTSIDE RECORDS SUMMARY | 2022-04-13 08:09 | XMS_ITS | Encounter Summary ---
:1945 Author Organization [facility] [place] [address] Care Team Providers Name Role Phone Lovely Vicente MD Primary Care Provider Reason for Visit Reason Comments Follow-up I'm having trouble with the VAC Encounter Details Date Type Department Care Team Description 08/26/2017 Office Visit Vascular Surgery at [facility], STEPHANIE Mercado Atheroembolism of foot, right; [facility] [address] Delayed surgical wound healing, initial encounter; [facility] VASCULAR SURG YEHUDA Acute on chronic systolic congestive hea rt failure ; [place], [place] [address] [phone] Social History Tobacco Use Types Packs/Day Years [...] home and into the care of the [facility]. However, since discharge from [facility] he has had some [...] [facility] ??? PRO AMPUTATION FOOT, TRANSMETATARSAL Right 08/09/2017 AMPUTATION, TRANSMETATARSAL (WRVU 12.71) performed by Yonathan Smith MD at [facility] MAIN [...] [facility] ENDOSCOPY ??? PRO DRESSING CHANGE UNDER ANESTHESIA Right 08/11/2017 (MSURG) DRESSING CHANGE (FOR OTHER THAN IVAN) UNDER ANES. (WRVU 0.86) performed by Lamar Smith MD at [facility] MAIN OR ??? PRO ENDOSCOPY W/VIDEO-ASST VEIN HARVEST, CABG Right 07/07/2017 ENDOSCOPIC HARVEST VEIN(S) FOR CABG (WRVU 0.31) performed by Yuan Retana MD at [facility] MAIN OR ??? PRO THYROIDECTOMY 03/28/2013 THYROIDECTOMY, TOTAL OR COMPLETE performed by Manny Mcknight MD at [facility] MAIN OR Social Hx: Social History Substance [...] Zulma Dolan MD [facility] [place], [place] [address] (Wo rk) 05/28/2022 Laboratory Appointment Lab 05/28/2022 Office Visit Cardiology Zulma Dolan MD [facility] [place] [address] Liz Poole PA [facility] [place] [address] 06/10/2022 Office Visit Dermatology Laura Scherer MD [facility] [address] [place], [place] [address] (Wo rk) documented as of [...] Department: Vascular Surgery Lab VASCUBASE Report Patient: [id number] (GREGORY FATIMA) CPT: 22810 ICD10: T81.89XA;I75.021 Referring Physician: ARIK CLEMENT ?? [...] [address] [facility] mg/dL [facility] Comment: Diabetes: >=200 mg/dL plus symp toms BUN 20 10 - 20 mg/dL [facility] Creatinine 1.17 0.80 - 1.50 mg/dL [facility] Estimated GFR >60 >=60 [facility] Comment: The reported eGFR should be multiplied b y 1.2 for patients. The MDRD is not an appropriate measure o f renal function for patients with body mass extremes or in patients with acute kidney failure. http://[employer]/DHnkdep http://[employer]/DHMCnkf Specimen Anatomical Collection Method Collection Time Receive d Time (Source) Location / / Volume Laterality Blood specimen 08/26/2017 2:00 PM 018 2:15 (specimen) EST PM EST Resulting Agency Comment Spec In Lab Danette Maxwell CLINICAL SERVICES PROFESSIONAL CHEMISTRY ORDERABLES Performing Organization Address City/[facility]/ZIP Code Phon e Number [address] (ABNORMAL) pro-Brain Natriuretic Peptide (08/26/2017 2:00 PM EST) P athologist Signature ProBNP 2,373 (H) <=125 [facility] pg/mL [facility] Specimen Anatomical Collection Method Collection Time Receive d Time (Source) Location / / Volume Laterality Blood specimen 08/26/2017 2:00 PM 018 2:15 (specimen) EST PM EST Resulting Agency Comment Spec In Lab Danette A [place] STACIE CHEMISTRY ORDERABLES Performing Organization Address City/[facility] [place] [address] documented in this encounter Visit Diagnoses Diagnosis Atheroembolism of foot, right Delayed surgical wound healing, initial encounter Acute on chronic systolic congestive hea rt failure Acute on chronic systolic heart failure Ischemic cardiomyopathy Other specified forms of chronic ischemi c heart disease documented in this encounter Care Teams Cell Tester Relationship Specialty Start Date End Date Lovely Vicente MD PCP - General 04/16/[address] [place] [address] documented as of this encounter
--- OUTSIDE RECORDS SUMMARY | 2022-04-13 08:09 | XMS_ITS | Encounter Summary ---
:1945 Author Organization [facility] Address [facility] [place] [address] Care Team Providers Name Role Phone Lovely Vicente MD Primary Care Provider Reason for Referral Diagnostic Test (Routine) - Specialty Diagnoses / Procedures Referred By Contact Refer red To Contact Cardiology Diagnoses Chronic systolic heart failure Danette Maxwell APRN [facility] Non-Inv Card Lab Procedures Echocardiogram Transthoracic(Leb) [facility] [place] [address] [place] [address] Referral ID Status Reason Start Date Expiration Visits Visits Date Requested Authorized [id number] Specialty 08/15/2018 08/15/2018 1 1 Service Requested Encounter Details Date Type Department Care Team Description 04/18/2018 Office Visit Cardiology at [facility] Danette Maxwell Chronic systolic heart failu re; [facility] STACIE Gomes On amiodarone therapy; [facility] Ischemic cardiomyopathy; [place], [place] DR ONOFRE (arteriosclerotic cardiovascular d isease) [phone] CARDIOLOGY [phone] [place], [place] [address] Social History Tobacco Use Types Packs/Day Years [...] in this encounter Progress Notes Danette Maxwell, RADIO SCRIPT WRITER - 04/18/2018 10:40 AM EDT ID and [...] x 80 10/25/2017: right popliteal-pedal bypass at [facility] ? Plan: 1. A review [...] Zulma Dolan MD [facility] [address] [place], [place] [address] (Wo rk) 05/28/2022 Laboratory Appointment Lab 05/28/2022 Office Visit Cardiology Zulma Dolan MD [facility] [address] Liz Poole PA [facility] [place] [address] 06/10/2022 Office Visit Dermatology Laura Scherer MD [facility] DR [address] [place], [place] [address] (Wo rk) documented as of this encounter Results ECHOCARDIOGRAM COMPLETE W CONTRAST (08/15/2018 7:55 AM EST) P athologist Signature EF 35 [facility] Anatomical Region Laterality Modality Other Specimen (Source) Anatomical Location Collection Method / Collectio n Time Received Time / Laterality Volume 08/15/2018 Narrative 08/15/2018 8:18 AM EST Procedure: ?Transthoracic Echocardiogram Patient: ?NATALYA Mccollum ? (Age): 1945(73y) Med Rec#: ? [id number] ?Sex: ?M ? Site Loc: ? [facility] ?Ht / Wt: ??172(cm)/81(kg) Pt. Loc: ?Echo Lab ?BSA: ?1.94 Study Date: ?? 08/15/2018 ?Pt. Type: Outpatient Tape: ? Referring: MARY ELLEN Reading: Scott Ortega ([id number]) Dependency Program Director: Laura Sargent Diagnosis: *Chronic systolic (congestive) [...] E-wave Vmax ?1.2 ?m/sec ? MV deceleration [id number] ? msec ? MV A-wave Vmax ?0.7 [...] ? Mid-Inferior ?Hypokinetic ? Mid-Inferoseptal ?Hypokinetic ? [place]-Septal ? Akinetic ? [place]-Anterior ? Hypokinetic ? [place]-Lateral ?Akinetic ? [place]-Inferior ? Hypokinetic ? [place]-Tip ?Akinetic ? This report has been electronically sign ed by: _ Scott Ortega M.D. ? 08/15/2018 08:17:26 Images reviewed and interpretation verif ied [facility] Cardiac Ultrasound Laboratory Procedure Note Scott Ortega MD - 08/15/2018Format ting of this note might be different from the original. Procedure: Transthoracic Echocardiogram Patient: NATALYA MCBRIDE(Age): [birth year]73y) Med Rec#: [id number] Sex: M Site Loc: [facility] Ht / Wt: 172(cm)/81(kg) Pt. Loc: Echo Lab BSA: 1.94 Study Date: 08/15/2018 Pt. Type: Outpati ent Tape: Referring: MARY ELLEN Reading: Scott Ortega ([id number]) Dependency Program Director: Laura Sargent Diagnosis: *Chronic systolic (congestive) [...] MV E-wave Vmax 1.2 m/sec MV deceleration gzpe237.4 msec MV A-wave Vmax 0.7 m/sec MV [...] Akinetic Mid-Posterolateral Akinetic Mid-Inferior Hypokinetic Mid-Inferoseptal Hypokinetic [place]-Septal Akinetic [place]-Anterior Hypokinetic [place]-Lateral Akinetic [place]-Inferior Hypokinetic [place]-Tip Akinetic This report has been electronically sign ed by: _ Scott Ortega M.D. 08/15/2018 08:17: 26 Images reviewed and interpretation verif ied [facility] Cardiac Ultrasound Laboratory Danette Maxwell APRN ECHO ORDERABLES (ABNORMAL) Basic Metabolic Panel (non-fasting) (04/18/2018 9:19 AM EDT) P athologist Signature Glucose Lvl 167 65 - 199 [facility] mg/dL [facility] Comment: Diabetes: >=200 mg/dL plus symp toms BUN 18 10 - 20 mg/dL [facility] Creatinine 1.19 0.80 - 1.50 mg/dL [facility] Sodium 147 (H) 135 - [...] of body mass or the acutely ill. http://[employer]/[facility] CITYnkf eGFR 70 >=60 mL/min/1.73 m?? [facility] Comment: The eGFR was calculated using the CKD-EP I equation. As with all creatinine based estimates of kidney function, eGFR values calculated with the CKD-EPI equation are not accurate in patients wi th acute kidney failure, extremes of body mass or the acutely ill. http://[employer]/[facility] CITYnkf Specimen Anatomical Collection Method Collection Time Receive d Time (Source) Location / / Volume Laterality Blood specimen 04/18/2018 9:19 AM 018 9:34 (specimen) EDT AM EDT Resulting Agency Comment Spec In Lab Danette Maxwell APRN CHEMISTRY ORDERABLES Performing Organization Address City/State/[place] [address] (ABNORMAL) pro-Brain Natriuretic Peptide (04/18/2018 9:19 AM EDT) P athologist Signature ProBNP 2,199 (H) <=125 [facility] pg[facility]mL [facility] Specimen Anatomical Collection Method Collection Time Receive d Time (Source) Location / / Volume Laterality Blood specimen 04/18/2018 9:19 AM 018 9:34 (specimen) EDT AM EDT Resulting Agency Comment Spec In Lab Danette Maxwell APRN CHEMISTRY ORDERABLES Performing Organization Address City/State/[place] [address] documented in this encounter Visit Diagnoses Diagnosis Chronic systolic heart failure On amiodarone therapy Ischemic cardiomyopathy Other specified forms of chronic ischemi c heart disease ASCVD (arteriosclerotic cardiovascular d isease) Unspecified cardiovascular disease Chronic systolic heart failure documented in this encounter Care Teams Tuft Machine Operator Relationship Specialty Start Date End Date Lovely Vicente MD PCP - General 04/16/[address] [place] [address] documented as of this encounter
--- OUTSIDE RECORDS SUMMARY | 2022-04-13 08:09 | XMS_ITS | Encounter Summary ---
:1945 Author Organization [facility] [place] [address] Care Team Providers Name Role Phone Lovely Vicente MD Primary Care Provider Encounter Details Date Type Department Care Team Description 08/26/2017 Hospital Encounter Vascular Lab at [facility], Athero embolism of foot, right; [place], [place] Delayed surgi nusrat wound healing, [place] [phone] Social History Tobacco Use Types Packs/Day Years [...] Dolan MD [facility] [address] [place], [place] [address] (Wo rk) 05/28/2022 Laboratory Appointment Lab 05/28/2022 Office Visit Cardiology Zulma Dolan MD [facility] [place] [address] Liz Poole PA [facility] [place] [address] 06/10/2022 Office Visit Dermatology Laura Scherer MD [facility] [address] [place], [place] [address] (Wo rk) documented as of [...] Component Value Ref Test Analysis Performed At [facility] Range Method Time Signature VB Text Department: Vascular Surgery Lab VASCUBASE Report Patient: [id number] (DON HOANG) CPT: 80118 ICD10: T81.89XA;I75.021 Referring Physician: ELVER BLOOM ?? [...] encounter documented in this encounter Care Teams Zipper Setter Relationship Specialty Start Date End Date Lovely Vicente MD PCP - General 04/16/[address] [place] [address] documented as of this encounter
--- OUTSIDE RECORDS SUMMARY | 2022-04-13 08:09 | XMS_ITS | Encounter Summary ---
:1945 Author Organization [facility] Address [facility] [place] [address] Care Team Providers Name Role Phone Lovely Vicente MD Primary Care Provider Encounter Details Date Type Department Care Team Description 10/07/2017 Office Visit Cardiology at [facility] Danette Maxwell Chronic systolic heart failu re; [facility] A, TECHNICAL PROPOSAL WRITER S/P CABG x 3; Drive 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 Espino On IV antibiotics at [facility] Today: Mr. Fatima is accompanied [...] continue to see Dr. Bains well at [facility] and follow his wound on his right lower extremity. And she will continue to direct antibiotic treatment. Ihave asked that the echocardiogram results be faxed to Dr. Zurita at [facility]. 1. ASCVD Continue ASA, BB [...] and bone removal by Dr. Aguero at [facility]. Currently receiving IV antibiotics at [facility] ? Plan: 1. A review [...] MD [facility] Dr [place], [place] [address] (Wo rk) 05/28/2022 Laboratory Appointment Lab 05/28/2022 Office Visit Cardiology Zulma Dolan MD [facility] [place] [address] Liz Poole PA [facility] [place] [address] 06/10/2022 Office Visit Dermatology Laura Scherer MD [facility] [address] [place], [place] [address] (Wo rk) documented as of this encounter Results (ABNORMAL) Basic Metabolic Panel (non-fasting) (10/07/2017 8:48 AM EDT) athologist Signature Glucose Lvl 99 65 - 199 [facility] mg/dL [facility] Comment: [...] [facility] Estimated GFR >60 >=60 [facility] Comment: The reported eGFR should be multiplied b y 1.2 for patients. The MDRD is not an appropriate measure o f renal function for patients with body mass extremes or in patients with acute kidney failure. http://[employer]/DHnkdep http://[employer]/DHMCnkf Specimen Anatomical Collection Method Collection Time Receive d Time (Source) Location / / Volume Laterality Blood specimen 10/07/2017 8:48 AM 018 8:50 (specimen) EDT AM EDT Resulting Agency Comment Spec In Lab Danette Maxwell APRN CHEMISTRY ORDERABLES Performing Organization Address City/State/[place] [address] (ABNORMAL) pro-Brain Natriuretic Peptide (10/07/2017 8:48 AM EDT) P athologist Signature ProBNP 1,170 (H) <=125 [facility] pg/mL [facility] Specimen Anatomical Collection Method Collection Time Receive d Time (Source) Location / / Volume Laterality Blood specimen 10/07/2017 8:48 AM 018 8:50 (specimen) EDT AM EDT Resulting Agency Comment Spec In Lab Danette Maxwell APRN CHEMISTRY ORDERABLES Performing Organization Address City/State/[place] [address] documented in this encounter Visit Diagnoses Diagnosis Chronic systolic heart failure S/P CABG x 3 Postsurgical aortocoronary bypass status On amiodarone therapy Atrial fibrillation, unspecified type ASCVD (arteriosclerotic cardiovascular d isease) Unspecified cardiovascular disease documented in this encounter Care Teams Dial Marker Relationship Specialty Start Date End Date Lovely Vicente MD PCP - General 04/16/[address] [place] [address] documented as of this encounter
--- OUTSIDE RECORDS SUMMARY | 2022-04-13 08:09 | XMS_ITS | Encounter Summary ---
:1945 Author Organization [facility] [place] [address] Care Team Providers Name Role Phone Lovely Vicente MD Primary Care Provider Reason for Referral Diagnostic Test (Routine) - Closed Specialty Diagnoses / Procedures Referred By Contact Refer red To Contact Cardiology Diagnoses Ischemic cardiomyopathy Acute on chronic systolic congestive heart failure Danette Maxwell APRN [facility] Non-Inv Card Lab Procedures Echocardiogram Transthoracic(Leb) [facility] [place] [address] [place] [address] Referral ID Status Reason Start Date Expiration Date Visits V isits Requested Authorized [id number] Closed Specialty 08/30/2017 08/30/2018 1 1 Service Requested Reason for Visit Diagnostic Test (Routine) - Closed Specialty Diagnoses / Procedures Referred By Contact Refer red To Contact Cardiology Diagnoses Ischemic cardiomyopathy Acute on chronic systolic congestive heart failure Danette Maxwell APRN [facility] Non-Inv Card Lab Procedures Echocardiogram Transthoracic(Leb) [facility] [place] [address] [place] [address] Referral ID Status Reason Start Date Expiration Date Visits V isits Requested Authorized [id number] Closed Specialty 08/30/2017 08/30/2018 1 1 Service Requested Encounter Details Date Type Department Care Team Description 10/07/2017 Hospital Encounter Non-Invasive Ischemic cardiomyopathy; Cardiology Lab Barbara Craig on chronic systolic [place] [address] Social History Tobacco Use Types Packs/Day [...] 05/28/2022 Appointment Cardiology Zulma Dolan MD [facility] [address] [place], [place] [address] (Wo rk) 05/28/2022 Laboratory Appointment Lab 05/28/2022 Office Visit Cardiology Zulma Dolan MD [facility] [place] [address] Liz Poole PA [facility] [place] [address] 06/10/2022 Office Visit Dermatology Laura Scherer MD [facility] [address] [place], [place] [address] (Wo rk) documented as of [...] Mccollum ? (Age): 1945(72y) Med Rec#: ? [id number] ?Sex: ?M ? Site Loc: ? [facility] ?Ht / Wt: ??173(cm)/82(kg) Pt. Loc: ?Echo Lab ?BSA: ?1.96 Study Date: ?? 10/07/2017 ?Pt. Type: Outpatient Tape: ? Referring: Danette Maxwell Reading: Iker Cuevas ([id number]) Block Saw Operator: Yonathan Bocanegra Diagnosis: *ICD-10-PCS Ischemic cardiomyopathy [...] E-wave Vmax ?1.2 ?m/sec ? MV deceleration [id number] ?msec ? MV A-wave Vmax ?1 ?m/sec [...] ? Mid-Inferior ?Hypokinetic ? Mid-Inferoseptal ?Hypokinetic ? High View-Septal ? Akinetic ? High View-Anterior ? Hypokinetic ? High View-Lateral ?Hypokinetic ? High View-Inferior ? Hypokinetic ? High View-Tip ?Akinetic ? This report has been electronically sign ed by: _ Iker Cuevas M.D. ? 10/07/2017 11:12:34 Images reviewed and interpretation verif ied [facility] Cardiac Ultrasound Laboratory Procedure Note Iker Cuevas MD - 10/07/2017Formatti ng of this note might be different from the original. Procedure: Transthoracic Echocardiogram Patient: NATALYA MCBRIDE(Age): [birth year]72y) Med Rec#: [id number] Sex: M Site Loc: [facility] Ht / Wt: 173(cm)/82(kg) Pt. Loc: Echo Lab BSA: 1.96 Study Date: 10/07/2017 Pt. Type: Outpati ent Tape: Referring: Danette Maxwell Reading: Iker Cuevas ([id number]) Block Saw Operator: Yonathan Bocanegra Diagnosis: *ICD-10-PCS Ischemic cardiomyopathy [...] MV E-wave Vmax 1.2 m/sec MV deceleration [id number] msec MV A-wave Vmax 1 m/sec MV [...] Akinetic Mid-Posterolateral Hypokinetic Mid-Inferior Hypokinetic Mid-Inferoseptal Hypokinetic High View-Septal Akinetic High View-Anterior Hypokinetic High View-Lateral Hypokinetic High View-Inferior Hypokinetic High View-Tip Akinetic This report has been electronically sign ed by: _ Iker Cuevas M.D. 10/07/2017 11:12 :34 Images reviewed and interpretation elvie hwang [facility] Cardiac Ultrasound Laboratory Danette [...] documented in this encounter Care Teams Software Licensing Analyst Relationship Specialty Start Date End Date Lovely Vicente MD PCP - General 04/16/[address] [place] [address] documented as of this encounter
--- OUTSIDE RECORDS SUMMARY | 2022-04-13 08:09 | XMS_ITS | Encounter Summary ---
:1945 Author Organization [facility] [place] [address] Care Team Providers Name Role Phone Lovely Vicente MD Primary Care Provider Reason for Visit Reason Comments Follow-up Skin Check Encounter Details Date Type Department Care Team Description 01/06/2018 Office Visit Dermatology at Rigoberto Formantipmirna nevi; Abdelrahman HOOPER MD History of melanoma; [address] [facility] [place] [address] [facility] [place], [place] [address] Social History Tobacco Use Types [...] Zulma Dolan MD [facility] [address] [place], [place] [address] (Wo rk) 05/28/2022 Laboratory Appointment Lab 05/28/2022 Office Visit Cardiology Zulma Dolan MD [facility] [place] [address] Liz Poole PA [facility] [place] [address] 06/10/2022 Office Visit Dermatology Laura Scherer MD [facility] [address] [place], [place] [address] (Wo rk) documented as of this encounter Visit Diagnoses Diagnosis Multiple nevi Benign neoplasm of skin, site unspecifie d History of melanoma Personal history of malignant melanoma o f skin Seborrheic keratosis Other seborrheic keratosis documented in this encounter Care Teams Western Felt Hat Blocker Relationship Specialty Start Date End Date Lovely Vicente MD PCP - General 04/16/[address] [place] [address] documented as of this encounter
--- OUTSIDE RECORDS SUMMARY | 2022-04-13 08:09 | XMS_ITS | Encounter Summary ---
:1945 Author Organization [facility] [place] [address] Care Team Providers Name Role Phone Lovely Vicente MD Primary Care Provider Encounter Details Date Type Department Care Team Description 10/05/2017 Unscheduled Cardiology at [facility] RONNIE Sin PATIENT NOT SEEN Encounter [facility] Tamiko Martinez MD [facility] [address] CARDIOLOGY DEPT [phone] [place] [address] Social History Tobacco Use Types Packs/Day Years Used Date Former Smoker Cigarettes 3 5 Quit: 07/26/18 69 Smokeless Tobacco: Never Used Alcohol Use Standard Drinks/Week Comments No 0 (1 standard drink = 0.6 oz pure alcoho l) Sex Assigned at Date Recorded Not on file documented as of this encounter Progress Notes Tamiko Sni MD - 10/26/2017 11:20 AM EDT This patient was not seen in this encounter. documented in this encounter Plan of Treatment Upcoming Encounters Date Type Specialty Care Team Description 05/28/2022 Appointment Cardiology Zulma Dolan MD [facility] [address] [place] [address] (Wo rk) 05/28/2022 Laboratory Appointment Lab 05/28/2022 Office Visit Cardiology Zulma Dolan MD [facility] [place] [address] Liz Poole PA [facility] [place] [address] 06/10/2022 Office Visit Dermatology Laura Scherer MD [facility] [address] [place], [place] [address] (Wo rk) documented as of this encounter Visit Diagnoses Diagnosis DH PATIENT NOT SEEN documented in this encounter Care Teams Finishing Range Operator Relationship Specialty Start Date End Date Lovely Vicente MD PCP - General 04/16/[address] [place] [address] documented as of this encounter
--- OUTSIDE RECORDS SUMMARY | 2022-04-13 08:09 | XMS_ITS | Encounter Summary ---
:1945 Author Organization [facility] [place] [address] Care Team Providers Name Role Phone Lovely Vicente MD Primary Care Provider Encounter Details Date Type Department Care Team Description 09/06/2017 Telephone Vascular Surgery at [facility] Ninfa Clark, [place] [address] Social History Tobacco Use Types Packs/Day [...] Cardiology Zulma Dolan MD [facility] [place], [place] [address] (Wo rk) 05/28/2022 Laboratory Appointment Lab 05/28/2022 Office Visit Cardiology Zulma Dolan MD [facility] [place] [address] Liz Poole PA [facility] [place] [address] 06/10/2022 Office Visit Dermatology Laura Scherer MD [facility] [address] [place], [place] [address] (Wo rk) documented as of this encounter Visit Diagnoses Not on filedocumented in this encounter Care Teams Butter Fat Tester Relationship Specialty Start Date End Date Lovely Vicente MD PCP - General 04/16/[address] [place] [address] documented as of this encounter
--- OUTSIDE RECORDS SUMMARY | 2022-04-13 08:09 | XMS_ITS | Encounter Summary ---
:1945 Author Organization [facility] [place] [address] Care Team Providers Name Role Phone Lovely Vicente MD Primary Care Provider Reason for Visit Reason Comments Skin Check Encounter Details Date Type Department Care Team Description 07/06/2018 Office Visit Dermatology at Selina Garcia, Rigoberto Yarbrough (actinic keratosis); MD SHAY Quick III (seborrheic keratosis); [address] [facility] History of melanoma; [place] [address] Skin exam for malignant neoplasm [phone] [facility] [place], [place] [address] Social History Tobacco Use Types [...] [facility] Dr [place], [place] [address] (Wo rk) 05/28/2022 Laboratory Appointment Lab 05/28/2022 Office Visit Cardiology Zulma Dolan [place] [facility] [place] [address] Liz Poole PA [facility] [place] [address] 06/10/2022 Office Visit Dermatology Laura Scherer MD [facility] [address] [place], [place] [address] (Wo rk) documented as of this encounter Visit Diagnoses Diagnosis AK (actinic keratosis) Actinic keratosis SK (seborrheic keratosis) Other seborrheic keratosis History of melanoma Personal history of malignant melanoma o f skin Skin exam for malignant neoplasm Screening for malignant neoplasm of the skin documented in this encounter Care Teams Real Estate Investment Analyst Relationship Specialty Start Date End Date Lovely Vicente MD PCP - General 04/16/[address] [place] [address] documented as of this encounter
--- OUTSIDE RECORDS SUMMARY | 2022-04-13 08:09 | XMS_ITS | Encounter Summary ---
:1945 Author Organization [facility] [place] [address] Care Team Providers Name Role Phone Lovely Vicente MD Primary Care Provider Encounter Details Date Type Department Care Team Description 09/07/2017 Office Visit Endocrinology at [facility] Maria Ines Stallings of [facility] [place] [address] CENTER [phone] ENDOCRINOLOGY DEPT [place], [place] [address] Social History Tobacco Use [...] MD [facility] er Dr [place], [place] [address] (Wo rk) 05/28/2022 Laboratory Appointment Lab 05/28/2022 Office Visit Cardiology Zumla Dolan MD [facility] [place] [address] Liz Poole PA [facility] [place] [address] 06/10/2022 Office Visit Dermatology Laura Scherer MD [facility] ER DR [address] [place], [place] [address] (Wo rk) documented as of this encounter Visit Diagnoses Diagnosis Hx of papillary thyroid carcinoma Personal history of malignant neoplasm o f thyroid documented in this encounter Care Teams Vat Washer Relationship Specialty Start Date End Date Lovely Vicente MD PCP - General 04/16/15 [facility] [address] [place] [address] documented as of this encounter
--- OUTSIDE RECORDS SUMMARY | 2022-04-13 08:09 | XMS_ITS | Encounter Summary ---
:1945 Author Organization [facility] [place] [address] Care Team Providers Name Role Phone Lovely Vicente MD Primary Care Provider Encounter Details Date Type Department Care Team Description 08/30/2017 [facility] ischemia [facility] [address] [place], [place] VASCULAR SURGERY [address] [place] [address] [phone] Social History Tobacco Use Types Packs/Day Years [...] Dolan MD [facility] Dr [place], [place] [address] (Wo rk) 05/28/2022 Laboratory Appointment Lab 05/28/2022 Office Visit Cardiology Zulma Dolan MD [facility] [place] [address] Liz Poole PA [facility] [place] [address] 06/10/2022 Office Visit Dermatology Laura Scherer MD [facility] [address] [place], [place] [address] (Wo rk) documented as of this encounter Visit Diagnoses Diagnosis Critical lower limb ischemia Unspecified circulatory system disorder documented in this encounter Care Teams Laborer Wharf Relationship Specialty Start Date End Date Lovely Vicente MD PCP - General 04/16/[address] [place] [address] documented as of this encounter
--- OUTSIDE RECORDS SUMMARY | 2022-04-13 08:09 | XMS_ITS | Encounter Summary ---
:1945 Author Organization [facility] [place] [address] Care Team Providers Name Role Phone Lovely Vicente MD Primary Care Provider Reason for Referral Consultation (Routine) - Specialty Diagnoses / Procedures Referred By Contact Refer red To Contact [facility] Diagnoses Atheroembolism of foot, right Delayed surgical wound healing, subsequent encounter Aurelia Rivera PA [address] [facility] [place] [address] Referral ID Status Reason Start Date Expiration Date Visits V isits Requested Authorized [id number] Consult, 09/08/2017 03/07/2018 1 1 Test & Treat Reason for Visit Reason Comments Wound Check My foot hurts Encounter Details Date Type Department Care Team Description 09/07/2017 Office Visit Vascular Surgery at MiguelAurelia PA Atheroembolism of foot, right; [facility] [address] [facility] Delayed surgical wound healing, subseque nt encounter [facility] [place] [address] [phone] Social History Tobacco Use Types Packs/Day Years [...] at home for VAC dressing changes from [facility]. Since his last visit his right forefoot wound [facility] better seal with [...] COMPLETE performed by Manny Mcknight MD at [facility] OR Social Hx: Social History [...] Zulma Dolan MD [facility] [place], [place] [address] (Wo rk) 05/28/2022 Laboratory Appointment Lab 05/28/2022 Office Visit Cardiology Zulma Dolan MD [facility] [place] [address] Liz Poole PA [facility] [place] [address] 06/10/2022 Office Visit Dermatology Laura Scherer MD [facility] [address] [place] [place], [place] [address] (Wo rk) Scheduled Referrals Name Type Priority Associated Diagnoses Order S chedule Referral to Wound Outpatient Referral Routine Atheroembolism o f foot, Ordered: Clinic right 09/08/2017 Delayed surgical wound healing, subsequent encounter documented as of this encounter Visit Diagnoses Diagnosis Atheroembolism of foot, right Delayed surgical wound healing, subseque nt encounter documented in this encounter Care Teams Assistant Dean Of Students Relationship Specialty Start Date End Date Lovely Vicente MD PCP - General 04/16/[address] [facility] 1 [place] [address] documented as of this encounter
--- OUTSIDE RECORDS SUMMARY | 2022-04-13 08:09 | XMS_ITS | Encounter Summary ---
:1945 Author Organization [facility] [place] [address] Care Team Providers Name Role Phone Lovely Vicente MD Primary Care Provider Reason for Visit Reason Comments Follow-up Encounter Details Date Type Department Care Team Description 08/19/2017 Office Visit Cardiac Surgery at [place], Jock S/P C ABG (coronary [facility] N, artery bypass graft) [facility] [place] CARDIOTHORACIC [address] SURGERY [phone] [place], [place] [address] Social History Tobacco Use Types [...] office. Best personal regards, Yuan Retana MD [phone] documented in this encounter Plan of Treatment Upcoming Encounters Date Type Specialty Care Team Description 05/28/2022 Appointment Cardiology Zulma Dolan MD [facility] er [address] [place] [address] (Wo rk) 05/28/2022 Laboratory Appointment Lab 05/28/2022 Office Visit Cardiology Zulma Dolan MD [facility] [place] [address] Liz Poole PA [facility] [place] [address] 06/10/2022 Office Visit Dermatology Laura Scherer MD [facility] ER DR [address] [place] [address] (Wo rk) documented as of this encounter [...] 454 ms MUSE SYSTEM (Bezet) Calculated P Edwards 20 degrees MUSE SYSTEM Calculated R Edwards -29 degrees MUSE SYSTEM Calculated T Edwards 121 degrees MUSE SYSTEM INTERPRETATION Normal sinus rhythm MUSE SYSTEM Inferior infarct (cited on or before 25-JAN-2013) Anterior 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) T wave abnormality, consider lateral ischemia Abnormal ECG When compared with ECG of 06-AUG-2017 12:37, No signif icant change was found Confirmed by MD Luci, Taurus Braun ([id number]) on 08/19/2017 1 0:37:38 PM Specimen Anatomical [...] status documented in this encounter Care Teams Creative Director Relationship Specialty Start Date End Date Lovely Vicente MD PCP - General 04/16/[address] [place] [address] documented as of this encounter
--- OUTSIDE RECORDS SUMMARY | 2022-04-13 08:09 | XMS_ITS | Encounter Summary ---
:1945 Author Organization [facility] [place] [address] Care Team Providers Name Role Phone Lovely Vicente MD Primary Care Provider Reason for Visit Reason Onset Date Comments VNA Calls 08/30/2017 Encounter Details Date Type Department Care Team Description 08/30/2017 Telephone Vascular Surgery at [facility] Cora Reid RN VNA Calls [facility] [place] [address] Social History Tobacco Use Types Packs/Day [...] - 08/30/2017 12:[address] Smiht, appt scheduled today with him for wound check/instructions Mrs Fatima understands and agrees to plan of care. Telephone Encounter - Cora Reid RN - 08/30/2017 11:16 AM EST Caller: Alfonso at [facility] [phone] Reason for call: Changing his wound vac [...] had been in contact with [facility] W[facility] Care Nurse who advised him to [...] Dolan MD [facility] [address] [place], [place] [address] (Wo rk) 05/28/2022 Laboratory Appointment Lab 05/28/2022 Office Visit Cardiology Zulma Dolan MD [facility] [place] [address] Liz Poole PA [facility] [place] [address] 06/10/2022 Office Visit Dermatology Laura Scherer MD [facility] [address] [place], [place] [address] (Wo rk) documented as of this encounter Visit Diagnoses Not on filedocumented in this encounter Care Teams Electric Dolly Operator Relationship Specialty Start Date End Date Lovely Vicente MD PCP - General 04/16/[address] [place] [address] documented as of this encounter
--- OUTSIDE RECORDS SUMMARY | 2022-04-13 08:09 | XMS_ITS | Encounter Summary ---
:1945 Author Organization [facility] [place] [address] Care Team Providers Name Role Phone Lovely Vicente MD Primary Care Provider Reason for Visit Reason Onset Date Comments Other 11/11/2017 Please call [facility] Encounter Details Date Type Department Care Team Description 11/11/2017 Telephone Cardiology at [facility] Danette Maxwell, Other (Please call [facility] SIMULATION ENGINEER [facility] ) [place] [address] CARDIOLOGY [place], [place] [address] (Wo rk) Social History Tobacco [...] Dolan MD [facility] [address] [place], [place] [address] (Wo rk) 05/28/2022 Laboratory Appointment Lab 05/28/2022 Office Visit Cardiology Zulma Dolan MD [facility] [place] [address] Liz Poole PA [facility] [place] [address] 06/10/2022 Office Visit Dermatology Laura Scherer MD [facility] [address] [place], [place] [address] (Wo rk) documented as of this encounter Visit Diagnoses Not on filedocumented in this encounter Care Teams Hspt Tutor Relationship Specialty Start Date End Date Lovely Vicente MD PCP - General 04/16/15 [facility] [address] [place] [address] documented as of this encounter
--- OUTSIDE RECORDS SUMMARY | 2022-04-13 08:09 | XMS_ITS | Encounter Summary ---
:1945 Author Organization [facility] [place] [address] Care Team Providers Name Role Phone Lovely Vicente MD Primary Care Provider Encounter Details Date Type Department Care Team Description 10/05/2017 Telephone Cardiology at [facility] Tamiko Sin MD [facility] [place] [address] CARDIOLOGY DEPT [phone] [place], [place] [address] (Wo rk) Social History Tobacco [...] MD [facility] er [address] [place] [address] (Wo rk) 05/28/2022 Laboratory Appointment Lab 05/28/2022 Office Visit Cardiology Zulma Dolan MD [facility] [place] [address] Liz Poole PA [facility] [place] [address] 06/10/2022 Office Visit Dermatology Laura Scherer MD [facility] ER [address] [place], [place] [address] (Wo rk) documented as of this encounter Visit Diagnoses Not on filedocumented in this encounter Care Teams Reducer Relationship Specialty Start Date End Date Lovely Vicente MD PCP - General 04/16/[address] [place] [address] documented as of this encounter
--- OUTSIDE RECORDS SUMMARY | 2022-04-13 08:09 | XMS_ITS | Encounter Summary ---
:1945 Author Organization [facility] [place] [address] Care Team Providers Name Role Phone Lovely Vicente MD Primary Care Provider Encounter Details Date Type Department Care Team Description 08/19/2017 Hospital Encounter XRay at [facility] [place] Martha Teague, S/P CABG x [address] [facility] [place] [address] [place] [address] RD [phone] [facility] [place], [place] [address] (Wo rk) Social History [...] Zulma Dolan MD [facility] [place], [place] [address] (Wo rk) 05/28/2022 Laboratory Appointment Lab 05/28/2022 Office Visit Cardiology Zulma Dolan MD [facility] [place] [address] Liz Poole PA [facility] [place] [address] 06/10/2022 Office Visit Dermatology Laura Scherer MD [facility] [address] [place], [place] [address] (Wo rk) documented as [...] 2017 EXAMINATION: XR CHEST PA AND LATERAL (S[employer] My Timesh[employer] NOWIC) CLINICAL HISTORY: CABG x 3 TECHNIQUE: PA [...] status documented in this encounter Care Teams Charter Boat Operator Relationship Specialty Start Date End Date Lovely Vicente MD PCP - General 04/16/[address] [place], [place] [address]Y [facility] 1 [place] [address] documented as of this encounter
--- OUTSIDE RECORDS SUMMARY | 2022-04-13 08:09 | XMS_ITS | Encounter Summary ---
:1945 [place] [address] Care Team Providers Name Role Phone Lovely Vicente MD Primary Care Provider Encounter Details Date Type Department Care Team Description 11/29/2017 Hospital Encounter Radiology Library at [facility] AGRICULTURE MANAGER [facility] [place] [address] CARDIOLOGY [phone] [place], [place] 0375 (Wo rk) Social History Tobacco [...] Zulma Dolan MD [facility] [place], [place] 0[address] (Wo rk) 05/28/2022 Laboratory Appointment Lab 05/28/2022 Office Visit Cardiology Zulma Dolan MD [facility] [place] [address] Liz Poole PA [facility] [place] [address] 06/10/2022 Office Visit Dermatology Laura Scherer MD [facility] [address]DERMAT OLOGY [place], [place] 0375 (Wo rk) documented as [...] Organization Address City/State/ZIP Code Phon e Number [place], [place] documented in this encounter Visit Diagnoses Diagnosis Pain Generalized pain documented in this encounter Care Teams Optical Glass Wet Inspector Relationship Specialty Start Date End Date Lovely Vicente MD PCP - General 04/16/[address] [place] [address] documented as of this encounter
--- OUTSIDE RECORDS SUMMARY | 2022-04-13 08:09 | XMS_ITS | Encounter Summary ---
:1945 Author Organization [facility] [place] [address] Care Team Providers Name Role Phone Lovely Vicente MD Primary Care Provider Encounter Details Date Type Department Care Team Description 04/18/2018 Laboratory Appointment Lab 3L [facility] [place] [phone] Social History Tobacco Use Types Packs/Day Years [...] Zulma Dolan MD [facility] er [place], [place] 0[address] (Wo rk) 05/28/2022 Laboratory Appointment Lab 05/28/2022 Office Visit Cardiology Zulma Dolan MD [facility] [address] Liz Poole PA [facility] [place] [address] 06/10/2022 Office Visit Dermatology Laura Scherer MD [facility] ER DR TE[address] GR[address]DERMAT [place], [place] 0375 (Wo rk) documented as [...] Signature Total Protein 7.6 6.1 - 8.0 [facility] gm/dL [facility] Albumin 4.0 3.2 - 5.2 [facility] gm/dL [facility] AST 36 0 - 39 [facility] unit/L [facility] ALT 27 0 - 55 [facility] unit/L [facility] Alk Phos 96 40 - 120 [facility] unit/L [facility] Total 0.7 0.2 - 1.3 [facility]INA Arte Manifiesto Bilirubin mg/dL [facility] Bili, Direct 0.1 0.0 - 0.3 [facility] mg/dL [facility] Specimen Anatomical Collection Method Collection Time Receive d Time (Source) Location / / Volume Laterality Blood specimen Venous Draw / 04/18/2018 9:19 AM 2017 9:44 (specimen) Unknown EDT AM EDT Resulting Agency Comment Spec In Lab Danette Maxwell APRN CHEMISTRY ORDERABLES Performing Organization Address City/State/[place] [address] TSH (04/18/2018 9:19 AM EDT) athologist Signature TSH 1.77 0.27 - 4.20 [facility] mlU/ML [facility] Specimen Anatomical Collection Method Collection Time Receive d Time (Source) Location / / Volume Laterality Blood specimen Venous Draw / 04/18/2018 9:19 AM 2017 9:44 (specimen) Unknown EDT AM EDT Resulting Agency Comment Spec In Lab Danette Maxwell APRN CHEMISTRY ORDERABLES Performing Organization Address City/State/Z[place] [address] (ABNORMAL) Basic Metabolic Panel (non-fasting) (04/18/2018 9:19 AM EDT) athologist Signature Glucose Lvl 167 65 - 199 [facility] mg/dL [facility] Comment: Diabetes: >=200 mg/dL plus symp toms BUN 18 10 - 20 mg/dL [facility] Creatinine 1.19 0.80 - 1.50 mg/dL [facility] Sodium 147 (H) 135 [...] of body mass or the acutely ill. http://[employer]/DHMCnkf eGFR 70 >=60 mL/min/1.73 m?? [facility] Comment: The eGFR was calculated using the CKD-EP I equation. As with all creatinine based estimates of kidney function, eGFR values calculated with the CKD-EPI equation are not accurate in patients wi th acute kidney failure, extremes of body mass or the acutely ill. http://[employer]/DHnkf Specimen Anatomical Collection Method Collection Time Receive d Time (Source) Location / / Volume Laterality Blood specimen 04/18/2018 9:19 AM 018 9:34 (specimen) EDT AM EDT Resulting Agency Comment Spec In Lab Danette Maxwell APRN CHEMISTRY ORDERABLES Performing Organization Address City/[facility]/[place] [address] (ABNORMAL) pro-Brain Natriuretic Peptide (04/18/2018 9:19 AM EDT) P athologist Signature ProBNP 2,199 (H) <=125 [facility] pg/mL [facility] Specimen Anatomical Collection Method Collection Time Receive d Time (Source) Location / / Volume Laterality Blood specimen 04/18/2018 9:19 AM 018 9:34 (specimen) EDT AM EDT Resulting Agency Comment Spec In Lab Danette Maxwell APRN CHEMISTRY ORDERABLES Performing Organization Address City/[facility]/[place] [address] documented in this encounter Visit Diagnoses Diagnosis Chronic systolic heart failure documented in this encounter Care Teams Housekeeper Home Relationship Specialty Start Date End Date Lovely Vicente MD PCP - General 04/16/[address] [place] [address] documented as of this encounter
--- OUTSIDE RECORDS SUMMARY | 2022-04-13 08:09 | XMS_ITS | Encounter Summary ---
:1945 Author Organization [facility] [place] [address] Care Team Providers Name Role Phone Lovely Vicente MD Primary Care Provider Encounter Details Date Type Department Care Team Description 09/16/2017 [place] [address] Social History Tobacco Use Types Packs/Day [...] Dolan MD [facility] [place], [place] 0[address] (Wo rk) 05/28/2022 Laboratory Appointment Lab 05/28/2022 Office Visit Cardiology Zulma Dolan MD [facility] [place] [address] Liz Poole PA [facility] [place] [address] 06/10/2022 Office Visit Dermatology Laura Scherer MD [facility] DR [address] OLOGY [place], [place] 0[address] (Wo rk) documented as of this encounter Procedures Procedure Name Priority Date/Time Associated Diagnosis Comme [facility] SURGICAL PATHOLOGY Routine 09/16/2017 7:28 AM Res ults for this REPORT EST procedure are i n the results section. documented in this encounter Results Surgical Pathology Report (09/16/2017 7:28 AM EST) Component Value Ref Test Analysis Performed At [facility] Method Time Signature Surgical [id number] ? Location: [facility] Pathology [place] Report The signing pathologist has (i) examined [...] Henrique Flower Verified: ??09/24/2017 ?Pathologist Performed at: ??-[facility] Dept. of Pathology, [place], [place] CLINICAL INFORMATION Specimen Submitted: A - [...] Organization Address City/State/[place] [address] documented in this encounter Visit Diagnoses Not on filedocumented in this encounter Care Teams Licensed Practical Nurse Clinic Nurse Relationship Specialty Start Date End Date Lovely Vicente MD PCP - General 04/16/[address] [place] [address] documented as of this encounter
--- OUTSIDE RECORDS SUMMARY | 2022-04-13 08:09 | XMS_ITS | Encounter Summary ---
:1945 Author Organization [facility] [place] [address] Care Team Providers Name Role Phone Lovely Vicente MD Primary Care Provider Reason for Visit Reason Onset Date Comments Follow-up 07/13/2018 amiodarone discontin ued Encounter Details Date Type Department Care Team Description 07/13/2018 Telephone Cardiology at [facility] Martha Comer, Follow-up (amiodarone [facility] RN discontin ued) [place] [address] Social History Tobacco Use Types Packs/Day [...] RN - 07/13/2018 8:57 AM EST Per [employer] Hans call placed to the home number for the pt. confirmed that the pt is still taking the amiodarone. Pt is to stop the amiodarone. Pt taking it for post op a-fib, therapy was supposed to be for 30 days. Message given to his . She will give him the message and will have him call with any questions. Call placed to the [facility] in [place] to discontinue it there as well. Med list updated. documented in this encounter Plan of Treatment Upcoming Encounters Date Type Specialty Care Team Description 05/28/2022 Appointment Cardiology Zulma Dolan MD [facility] [address] [place], [place] [address] (Wo rk) 05/28/2022 Laboratory Appointment Lab 05/28/2022 Office Visit Cardiology Zulma Dolan MD [facility] [place] [address] Liz Poole PA [facility] [place] [address] 06/10/2022 Office Visit Dermatology Laura Scherer MD [facility] [address]DERMAT [place], [place] [address] (Wo rk) documented as of this encounter Visit Diagnoses Not on filedocumented in this encounter Care Teams Iuss Acoustic Analyst Relationship Specialty Start Date End Date Lovely Vicente MD PCP - General 04/16/[address] [place] [address] documented as of this encounter
--- OUTSIDE RECORDS SUMMARY | 2022-04-13 08:09 | XMS_ITS | Encounter Summary ---
:1945 Author Organization [facility] [place] [address] Care Team Providers Name Role Phone Lovely Vicente MD Primary Care Provider Encounter Details Date Type Department Care Team Description 11/29/2017 Hospital Encounter Vascular Lab at Janett Walter PAD (peripheral [facility], RVT artery [facility]) [place] [phone] Social History Tobacco Use Types Packs/Day Years [...] Zulma Dolan MD [facility] [address] [place], [place] [address] (Wo rk) 05/28/2022 Laboratory Appointment Lab 05/28/2022 Office Visit Cardiology Zulma Dolan [place] [address] Liz Poole PA [facility] [place] [address] 06/10/2022 Office Visit Dermatology Laura Scherer MD [facility] DR [address]MAT OLOGY [place], [place] 0[address] (Wo rk) documented as of this encounter Procedures Procedure Name Priority Date/Time Associated Diagnosis Comme nts ARTERIAL DUPLEX LEG Routine 11/29/2017 10:32 AM PAD (periphera l Results for this UNILA EDT artery disease) procedure ar e in the results section. documented in this encounter Results Arterial Duplex Leg, Unil (11/29/2017 10:32 AM EDT) Component Value Ref Test Analysis Performed At [facility] Range Method Time Signature VB Text Department: Vascular Surgery Lab VASCUBASE Report Patient: [id number] (DON HOANG) CPT: 66038 ICD10: I72.4;I73.9 Referring Physician: DANETTE MAXWELL ?? [...] unspecified documented in this encounter Care Teams Enterprise Application Developer Relationship Specialty Start Date End Date Lovely Vicente MD PCP - General 04/16/[address] [place], [place] [address]Y [facility] 1 [place] [address] documented as of this encounter
--- OUTSIDE RECORDS SUMMARY | 2022-04-13 08:09 | XMS_ITS | Encounter Summary ---
:1945 Author Organization [facility] [place] [address] Care Team Providers Name Role Phone Lovely Vicente MD Primary Care Provider Encounter Details Date Type Department Care Team Description 09/03/2017 Telephone Vascular Surgery at [facility] Ninfa Clark, [place] [address] Social History Tobacco Use Types Packs/Day [...] help with the discomfort of the change. Clerical Dentist Assistant told the [facility] that I would ask [...] Zulma Dolan MD [facility] [place], [place] 0[address] (Wo rk) 05/28/2022 Laboratory Appointment Lab 05/28/2022 Office Visit Cardiology Zulma Dolan MD [facility] [place] [address] Liz Poole PA [facility] [place] [address] 06/10/2022 Office Visit Dermatology Laura Scherer MD [facility] DR [address] [place], [place] [address] (Wo rk) documented as of this encounter Visit Diagnoses Not on filedocumented in this encounter Care Teams Gathering Machine Setter Relationship Specialty Start Date End Date Lovely Vicente MD PCP - General 04/16/[address] [place] [address] [address] [facility] 1 [place] [address] documented as of this encounter
--- OUTSIDE RECORDS SUMMARY | 2022-04-13 08:09 | XMS_ITS | Encounter Summary ---
:1945 Author Organization [facility] [place] [address] Care Team Providers Name Role Phone Lovely Vicente MD Primary Care Provider Encounter Details Date Type Department Care Team Description 09/07/2017 Laboratory Appointment Lab 3L [facility] [place] [phone] Social History Tobacco Use Types Packs/Day Years [...] Dolan MD [facility] er [place], [place] [address] (Wo rk) 05/28/2022 Laboratory Appointment Lab 05/28/2022 Office Visit Cardiology Zulma Dolan MD [facility] [place] [address] Liz Poole PA [facility] [place] [address] 06/10/2022 Office Visit Dermatology Laura Scherer MD [facility] ER DR [address]JA GR[address]DERMAT [place], [place] [address] (Wo rk) documented as of this encounter [...] PM EST) athologist Signature Thyroglobulin 1.4 <=54.9 [facility] ng/mL [facility] Comment: Thyroglobulin levels may be [...] Organization Address City/State/[place] [address] TSH (09/07/2017 2:41 PM EST) athologist Signature TSH 3.93 0.27 - 4.20 [facility] Specimen Anatomical Collection Method Collection Time Receive d Time (Source) Location / / Volume Laterality Blood specimen 09/07/2017 2:41 PM 018 2:46 (specimen) EST PM EST Resulting Agency Comment Spec In Lab Luz Prescott MD CHEMISTRY ORDERABLES Performing Organization Address City/State/[place] [address] documented in this encounter Visit Diagnoses Diagnosis Hx of papillary thyroid carcinoma Personal history of malignant neoplasm o f thyroid documented in this encounter Care Teams Correctional Cook Relationship Specialty Start Date End Date Lovely Vicente MD PCP - General 04/16/[address] [place] [address] documented as of this encounter
--- OUTSIDE RECORDS SUMMARY | 2022-04-13 08:09 | XMS_ITS | Encounter Summary ---
:1945 Author Organization [place] [address] Care Team Providers Name Role Phone Lovely Vicente MD Primary Care Provider Encounter Details Date Type Department Care Team Description 10/07/2017 Laboratory Appointment Lab 3L [facility] [place] [phone] Social History Tobacco Use Types Packs/Day Years [...] Dolan MD [facility] er [place], [place] [address] (Wo rk) 05/28/2022 Laboratory Appointment Lab 05/28/2022 Office Visit Cardiology Zulma Dolan MD [facility] [place] [address] Liz Poole PA [facility] [place] [address] 06/10/2022 Office Visit Dermatology Laura Scherer MD [facility] ER DR TEJA GR-DERMAT ENIDReal [facility], [place] Amy (Wo rk) documented as of [...] Signature Glucose Lvl 99 65 - 199 [facility] mg/dL [facility] Comment: Diabetes: [...] or in patients with acute kidney failure. http://[employer].CheckInPage/DHnkdep http://[employer].CheckInPage/DHMCnkf Specimen Anatomical Collection Method Collection Time Receive d Time (Source) Location / / Volume Laterality Blood specimen 10/07/2017 8:48 AM 018 8:50 (specimen) EDT AM EDT Resulting Agency Comment Spec In Lab Danette Maxwell SIZING MACHINE OPERATOR CHEMISTRY ORDERABLES Performing Organization Address City/[facility]/ZIP Code Phon e Number [address] (ABNORMAL) pro-Brain Natriuretic Peptide (10/07/2017 8:48 AM EDT) athologist Signature ProBNP 1,170 (H) <=125 [facility] pg/mL [facility] Specimen Anatomical Collection Method Collection Time Receive d Time (Source) Location / / Volume Laterality Blood specimen 10/07/2017 8:48 AM 018 8:50 (specimen) EDT AM EDT Resulting Agency Comment Spec In Lab Danette A Hans QUINONES CHEMISTRY ORDERABLES Performing Organization Address City/State/[place] [address] documented in this encounter Visit Diagnoses Diagnosis Chronic systolic heart failure documented in this encounter Care Teams Microarray Analyst Relationship Specialty Start Date End Date Lovely Vicente MD PCP - General 04/16/15 [address] [place] [address] documented as of this encounter
--- OUTSIDE RECORDS SUMMARY | 2022-04-13 08:09 | XMS_ITS | Encounter Summary ---
:1945 Author Organization [facility] [place] [address] Care Team Providers Name Role Phone Lovely Vicente MD Primary Care Provider Reason for Referral Diagnostic Test (Routine) - Specialty Diagnoses / Procedures Referred By Contact Refer red To Contact Cardiology Diagnoses Chronic systolic heart failure Danette Maxwell APRN [facility] Non-Inv Card Lab Procedures Echocardiogram Transthoracic(Leb) [facility] [place] [phone] [place] [address] Referral ID Status Reason Start Date Expiration Visits Visits Date Requested Authorized [id number] Specialty 08/15/2018 08/15/2018 1 1 Service Requested Reason for Visit Diagnostic Test (Routine) - Specialty Diagnoses / Procedures Referred By Contact Nawaf owen To Contact Cardiology Diagnoses Chronic systolic heart failure Danette Maxwell APRN [facility] Non-Inv Card Lab Procedures Echocardiogram Transthoracic(Leb) [facility] [place] [address] [place] [address] Referral ID Status Reason Start Date Expiration Visits Visits Date Requested Authorized [id number] Specialty 08/15/2018 08/15/2018 1 1 Service Requested Encounter Details Date Type Department Care Team Description 08/15/2018 Hospital Encounter Non-Invasive Danette Maxwell Chron ic systolic Cardiology Lab Barbara Gomes APRN heart failure [facility] [place] [address] [place] [phone] (Work) [phone] Social History Tobacco Use Types Packs/Day Years [...] Zulma Dolan MD [facility] [place], [place] 0[address] (Wo rk) 05/28/2022 Laboratory Appointment Lab 05/28/2022 Office Visit Cardiology Zulma Dolan MD [facility] [place] [address] Liz Poole PA [facility] [place] [address] 06/10/2022 Office Visit Dermatology Laura Scherer MD [facility] [address] OLOG[address] [place], [place] 0[address] (Wo rk) documented as [...] Mccollum ? (Age): 1945(73y) Med Rec#: ? [id number] ?Sex: ?M ? Site Loc: ? [facility] ?Ht / Wt: ??172(cm)/81(kg) Pt. Loc: ?Echo Lab ?BSA: ?1.94 Study Date: ?? 08/15/2018 ?Pt. Type: Outpatient Tape: ? Referring: MARY ELLEN Reading: Scott Ortega ([id number]) Audio Visual Project Manager: Laura Sargent Diagnosis: *Chronic systolic (congestive) [...] E-wave Vmax ?1.2 ?m/sec ? MV deceleration rqvu750.4 ? msec ? MV A-wave Vmax ?0.7 [...] [place]-Anterior ? Hypokinetic ? [place]-Lateral ?Akinetic ? [place]-Inferior ? Hypokinetic ? [place]-Tip ?Akinetic ? This report has been electronically sign ed by: _ Scott Ortega M.D. ? 08/15/2018 08:17:26 Images reviewed and interpretation ver ied [facility] Cardiac Ultrasound Laboratory Procedure Note Scott Ortega MD - 08/15/2018Format ting of this note might be different from the original. Procedure: Transthoracic Echocardiogram Patient: NATALYA MCBRIDE(Age): [birth year]73y) Med Rec#: [id number] Sex: M Site Loc: [facility] Ht / Wt: 172(cm)/81(kg) Pt. Loc: Echo Lab BSA: 1.94 Study Date: 08/15/2018 Pt. Type: Outpati ent Tape: Referring: MARY ELLEN Reading: Scott Ortega ([id number]) Audio Visual Project Manager: Laura Sargent Diagnosis: *Chronic systolic (congestive) [...] MV E-wave Vmax 1.2 m/sec MV deceleration [id number] msec MV A-wave Vmax 0.7 m/sec MV [...] Akinetic Mid-Posterolateral Akinetic Mid-Inferior Hypokinetic Mid-Inferoseptal Hypokinetic [place]-Septal Akinetic [place]-Anterior Hypokinetic [place]-Lateral Akinetic [place]-Inferior Hypokinetic [place]-Tip Akinetic This report has been electronically sign ed by: _ Scott Ortega M.D. 08/15/2018 08:17: 26 Images reviewed and interpretation verif ied [facility] Cardiac Ultrasound Laboratory Danette A Hans ELECTRIC RANGE PREPARER ECHO ORDERABLES documented in this encounter Visit [...] Routine documented in this encounter Care Teams Doughnut Icer Relationship Specialty Start Date End Date Lovely Vicente MD PCP - General 04/16/[address] [place] [address] documented as of this encounter
--- OUTSIDE RECORDS SUMMARY | 2022-04-13 08:09 | XMS_ITS | Encounter Summary ---
:1945 Author Organization [facility] [place] [address] Care Team Providers Name Role Phone Lovely Vicente MD Primary Care Provider Encounter Details Date Type Department Care Team Description 11/29/2017 Laboratory Lab 3L Barbara Chronic systoli c congestive heart failure; Appointment [facility] ASCVD (ar teriosclerotic cardiovascular disease); Hospital [place] [address] Social History Tobacco Use Types [...] MD [facility] [place], [place] [address] (Wo rk) 05/28/2022 Laboratory Appointment Lab 05/28/2022 Office Visit Cardiology Zulma Dolan MD [facility] [place] [address] Liz Poole PA [facility] [place] [address] 06/10/2022 Office Visit Dermatology Laura Scherer MD [facility] ER DR [address] [place], [place] [address] (Wo rk) documented as of [...] Signature PT 23.0 (H) 9.4 - 12.5 [facility] LABORATORY INR 2.1 [facility] [...] Organization Address City/State/Z[place] [address] (ABNORMAL) Basic Metabolic Panel (non-fasting) (11/29/2017 8:22 AM EDT) P athologist Signature Glucose Lvl 217 (H) 65 - 199 [facility] mg/dL [facility] LABORATORY Comment: Diabetes: >=200 mg/dL plus symp toms BUN 26 (H) 10 - 20 mg/dL [facility] LABORATORY Creatinine 0.96 0.80 - 1.50 [facility] Estimated GFR >60 >=60 [facility] LABORATORY Comment: The reported eGFR should be multiplied b y 1.2 for patients. The MDRD is not an appropriate measure o f renal function for patients with body mass extremes or in patients with acute kidney failure. http://LATTO.IntooBR/DHnkdep http://Droid system master/DHMCnkf Specimen Anatomical Collection Method Collection Time Receive d Time (Source) Location / / Volume Laterality Blood specimen 11/29/2017 8:22 AM 018 8:29 (specimen) EDT AM EDT Resulting Agency Comment Spec In Lab Danette Maxwell APRN CHEMISTRY ORDERABLES Performing Organization Address City/State/[place] [address] (ABNORMAL) pro-Brain Natriuretic Peptide (11/29/2017 8:22 AM EDT) P athologist Signature ProBNP 1,769 (H) <=125 [facility] pg/mL [facility] LABORATORY Specimen Anatomical Collection Method Collection Time Receive d Time (Source) Location / / Volume Laterality Blood specimen 11/29/2017 8:22 AM 018 8:29 (specimen) EDT AM EDT Resulting Agency Comment Spec In Lab Danette Maxwell APRN CHEMISTRY ORDERABLES Performing Organization Address City/State/ZIP Code Phon e Number [address] Lavender Tube HOLD (11/29/2017 8:14 AM EDT) Patholo gist Method Time Signature Lavender Hold Sample in [facility] lab. [facility] LABORATORY Specimen Anatomical Collection Method Collection Time Receive d Time (Source) Location / / Volume Laterality Blood specimen No Charge / 11/29/2017 8:14 AM 018 8:29 (specimen) Unknown EDT AM EDT Lovely Vicente MD HEMATOLOGY ORDERABLES Performing Organization Address City/State/[place] [address] documented in this encounter Visit Diagnoses Diagnosis Chronic systolic congestive heart failur e Chronic systolic heart failure ASCVD (arteriosclerotic cardiovascular d isease) Unspecified cardiovascular disease Cardiomyopathy, ischemic Other specified forms of chronic ischemi c heart disease documented in this encounter Care Teams President [employer] Ce[employer] Relationship Specialty Start Date End Date Lovely Vicente MD PCP - General 04/16/[address] [place] [address] documented as of this encounter
--- OUTSIDE RECORDS SUMMARY | 2022-04-13 08:09 | XMS_ITS | Encounter Summary ---
:1945 Author Organization [facility] [place] [address] Care Team Providers Name Role Phone Lovely Vicente MD Primary Care Provider Encounter Details Date Type Department Care Team Description 11/29/2017 Office Visit Cardiology at [facility] [place] Annette Maxwell Chronic systolic congestive heart failure; [facility] A, SURVEYOR MINE ASCVD (arteriosclerotic cardiovascular d isease); [facility] Cardiomyopathy, ischemic; [place], [place] PAD (peripheral artery disease) [id number] CARDIOLOGY [phone] [place], [place] [address] Social History Tobacco Use Types [...] in this encounter Progress Notes Annette Maxwell, SURVEYOR MINE - 11/29/2017 9:20 AM EDT ID and [...] 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 [...] using left greater saphenous vein (done at [facility]), debridement of right foot with wound vac [...] improvement in LV function. ? Assessment: Mr. Honag appears euvolemic today. His proBNP is more [...] Zulma Dolan MD [facility] [place], [place] [address] (Wo rk) 05/28/2022 Laboratory Appointment Lab 05/28/2022 Office Visit Cardiology Zulma Dolan MD [facility] [place] [address] Liz Poole PA [facility] [place] [address] 06/10/2022 Office Visit Dermatology Laura Scherer MD [facility] DR [address] [place], [place] [address] (Wo rk) documented as of this encounter Results Arterial Duplex Leg, Unil (11/29/2017 10:32 AM EDT) Component Value Ref Test Analysis Performed At [facility] Range Method Time Signature VB Text Department: Vascular Surgery Lab VASCUBASE Report Patient: [id number] (GREGORY HOANG) CPT: 57897 ICD10: I72.4;I73.9 Referring Physician: ANNETTE MAXWELL ?? [...] Glucose Lvl 217 (H) 65 - 199 [facility] mg/dL [facility] LABORATORY Comment: Diabetes: >=200 mg/dL plus symp toms BUN 26 (H) 10 - 20 mg/dL [facility] LABORATORY Creatinine 0.96 0.80 - 1.50 [...] in patients with acute kidney failure. http://[employer]DHnkdep http://Sense.ly/DHMCnkf Specimen Anatomical Collection Method Collection Time Receive d Time (Source) Location / / Volume Laterality Blood specimen 11/29/2017 8:22 AM 05/07/2 018 8:29 (specimen) EDT AM EDT Resulting Agency Comment Spec In Lab Annette Maxwell SURVEYOR MINE CHEMISTRY ORDERABLES Performing Organization Address City/State/[place] [address] (ABNORMAL) pro-Brain Natriuretic Peptide (11/29/2017 8:22 AM EDT) P athologist Signature ProBNP 1,769 (H) <=125 [facility] pg/mL [facility] LABORATORY Specimen Anatomical Collection Method Collection Time Receive d Time (Source) Location / / Volume Laterality Blood specimen 11/29/2017 8:22 AM 018 8:29 (specimen) EDT AM EDT Resulting Agency Comment Spec In Lab Annette Maxwell SURVEYOR MINE CHEMISTRY ORDERABLES Performing Organization Address City/[facility]/[place] [address] documented in this encounter Visit Diagnoses Diagnosis Chronic systolic congestive heart failur e Chronic systolic heart failure ASCVD (arteriosclerotic cardiovascular d isease) Unspecified cardiovascular disease Cardiomyopathy, ischemic Other specified forms of chronic ischemi c heart disease PAD (peripheral artery disease) Peripheral vascular disease, unspecified documented in this encounter Care Teams Manufacturing Process Technician Relationship Specialty Start Date End Date Lovely Vicente MD PCP - General 04/16/[address] [place] [address] documented as of this encounter
--- OUTSIDE RECORDS SUMMARY | 2022-04-13 08:09 | XMS_ITS | Encounter Summary ---
:1945 Author Organization [facility] [place] [address] Care Team Providers Name Role Phone Lovely Vicente MD Primary Care Provider Encounter Details Date Type Department Care Team Description 08/25/2017 Telephone Pain Management at [place], [place] [address] Social History Tobacco Use Types Packs/Day [...] Management Center Preauthorization Request Patient: Don Fatima [id number] Fax received from [employer] denying prior authorization for Lidocaine Patches prescribed by Barbra Soares APRN. RX insurance plan: [employer] RX insurance telephone: [phone] Patient Diagnosis: right foot pain secondary to PVD and ischemia ? Previous medications attempted: Tylenol, Tramadol, Dilaudid Authorization/Reference number: [id number] _x_ denied, provider and patient informed _x_ appeal initiated by provider, patient informed [place] Rodrigez, RN documented in this encounter Plan of Treatment Upcoming Encounters Date Type Specialty Care Team Description 05/28/2022 Appointment Cardiology Zulma Dolan MD [facility] [address] (Wo rk) 05/28/2022 Laboratory Appointment Lab 05/28/2022 Office Visit Cardiology Zulma Dolan MD [facility] [place] [address] Liz Poole PA [facility] Cardiology Dept [id number] 06/10/2022 Office Visit Dermatology Laura Scherer MD [facility] DR [address] [place], [place] [address] (Wo rk) documented as of this encounter Visit Diagnoses Not on filedocumented in this encounter Care Teams Ad Taker Relationship Specialty Start Date End Date Lovely Vicente MD PCP - General 04/16/[address] [place] [address] documented as of this encounter
--- OUTSIDE RECORDS SUMMARY | 2022-04-13 08:09 | XMS_ITS | Encounter Summary ---
:1945 Author Organization [facility] [place] [address] Care Team Providers Name Role Phone Lovely Vicente MD Primary Care Provider Reason for Referral Diagnostic Test (Routine) - Closed Specialty Diagnoses / Procedures Referred By Contact Refer red To Contact Cardiology Diagnoses Ischemic cardiomyopathy Acute on chronic systolic congestive heart failure Danette Maxwell APRN [facility] Non-Inv Card Lab Procedures Echocardiogram Transthoracic(Leb) [facility] [place] [address] [place] [address] Referral ID Status Reason Start Date Expiration Date Visits V isits Requested Authorized [id number] Closed Specialty 08/30/2017 08/30/2018 1 1 Service Requested Encounter Details Date Type Department Care Team Description 08/26/2017 Office Visit Cardiology at [facility] Danette Maxwell Ischemic cardiomyopathy; [facility] STACIE Gomes Acute on chronic systolic congestive hea rt failure ; Drive 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 [...] aotic dissection was imaged ?? Assessment: Mr. Ftaima appears euvolemic today. His weight and proBNP [...] Dolan MD [facility] [place], [place] [address] (Wo rk) 05/28/2022 Laboratory Appointment Lab 05/28/2022 Office Visit Cardiology Zulma Dolan [place] [address] Liz Poole PA [facility] [place] [address] 06/10/2022 Office Visit Dermatology Laura Scherer MD [facility] [address] [place], [place] [address] (Wo rk) documented as of this encounter Results ECHOCARDIOGRAM COMPLETE W CONTRAST (10/07/2017 10:23 AM EDT) athologist Signature EF 45 [facility] Anatomical Region Laterality Modality Other Specimen (Source) Anatomical Location Collection Method / Collectio n Time Received Time / Laterality Volume 10/07/2017 Narrative 10/07/2017 11:13 AM EDT Procedure: ?Transthoracic Echocardiogram Patient: ?NATALYA Mccollum ? (Age): 1945(72y) Med Rec#: ? [id number] ?Sex: ?M ? Site Loc: ? [facility] ?Ht / Wt: ??173(cm)/82(kg) Pt. Loc: ?Echo Lab ?BSA: ?1.96 Study Date: ?? 10/07/2017 ?Pt. Type: Outpatient Tape: ? Referring: Danette Maxwell Reading: Iker Cuevas ([id number]) Furniture Upholsterer Apprentice: Yonathan Bocanegra Diagnosis: *ICD-10-PCS Ischemic cardiomyopathy (I2 [...] E-wave Vmax ?1.2 ?m/sec ? MV deceleration [id number] ?msec ? MV A-wave Vmax ?1 ?m/sec [...] ? Mid-Inferior ?Hypokinetic ? Mid-Inferoseptal ?Hypokinetic ? [place]-Septal ? Akinetic ? [place]-Anterior ? Hypokinetic ? [place]-Lateral ?Hypokinetic ? [place]-Inferior ? Hypokinetic ? [place]-Tip ?Akinetic ? This report has been electronically sign ed by: _ Iker Cuevas M.D. ? 10/07/2017 11:12:34 Images reviewed and interpretation [facility] Cardiac Ultrasound Laboratory Procedure Note Iker Cuevas MD - 10/07/2017Formatti ng of this note might be different from the original. Procedure: Transthoracic Echocardiogram Patient: NATALYA Mccollum (Age): [birth year]72y) Med Rec#: [id number] Sex: M Site Loc: [facility] Ht / Wt: 173(cm)/82(kg) Pt. Loc: Echo Lab BSA: 1.96 Study Date: 10/07/2017 Pt. Type: Outpati ent Tape: Referring: Danette Maxwell Reading: Iker Cuevas ([id number]) Furniture Upholsterer Apprentice: Yonathan Bocanegra Diagnosis: *ICD-10-PCS Ischemic cardiomyopathy (I2 [...] MV E-wave Vmax 1.2 m/sec MV deceleration [id number] msec MV A-wave Vmax 1 m/sec MV [...] Akinetic Mid-Posterolateral Hypokinetic Mid-Inferior Hypokinetic Mid-Inferoseptal Hypokinetic [place]-Septal Akinetic [place]-Anterior Hypokinetic [place]-Lateral Hypokinetic [place]-Inferior Hypokinetic [place]-Tip Akinetic This report has been electronically sign ed by: _ Iker Cuevas M.D. 10/07/2017 11:12 :34 Images reviewed and interpretation [facility] Cardiac Ultrasound Laboratory Danette Maxwell APRN ECHO ORDERABLES Basic Metabolic Panel (non-fasting) (08/26/2017 2:00 PM EST) P athologist Signature Glucose Lvl 98 65 - 199 [facility] mg/dL [facility] LABORATORY [...] or in patients with acute kidney failure. http://y prime/DHnkdep http://y prime/DHMCnkf Specimen Anatomical Collection Method Collection Time Receive d Time (Source) Location / / Volume Laterality Blood specimen 08/26/2017 2:00 PM 018 2:15 (specimen) EST PM EST Resulting Agency Comment Spec In Lab Danette Maxwell APRN CHEMISTRY ORDERABLES Performing Organization Address City/State/ZIP Code Phon e Number [address] (ABNORMAL) pro-Brain Natriuretic Peptide (08/26/2017 2:00 PM EST) P athologist Signature ProBNP 2,373 (H) <=125 [facility] pg/mL [facility] LABORATORY Specimen Anatomical Collection Method Collection Time Receive d Time (Source) Location / / Volume Laterality Blood specimen 08/26/2017 2:00 PM 018 2:15 (specimen) EST PM EST Resulting Agency Comment Spec In Lab Danette Maxwell APRN CHEMISTRY ORDERABLES Performing Organization Address City/State/[place] [address] documented in this encounter [...] [address] [place] [address] documented as of this encounter
--- OUTSIDE RECORDS SUMMARY | 2022-04-13 08:10 | XMS_ITS | Encounter Summary ---
:1945 [place] [address] Care Team Providers Name Role Phone Lovely Vicente MD Primary Care Provider Reason for Visit Auth/Cert Specialty Diagnoses / Procedures Referred By Contact Refer red To Contact Diagnoses Critical lower limb ischemia CELLULITIS RT FOOT Procedures EMERGENCY Referral ID Status Reason Start Date Expiration Date Visits Requ ested Visits Authorized [id number] 1 1 Encounter Details Date Type Department Care Team Description 08/06/2017 - Hospital Encounter 5 Yonathan Oneill lower limb ischemia; 08/16/2017 Su Flores MD Ischemic foot Hospital [facility] [address] [place] [phone] Social History Tobacco Use Types Packs/Day Years [...] 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 Patient [...] Dorsalis Pedis (Ankle) Artery ?132 ? 0.94 ??[place]-Biphasic ? Posterior Tibial (Ankle) Artery ??154 ? 1.10 ??[place]-Biphasic ? Fourth Toe ? 67 ?0.48 ?? [...] For any problems or questions please call [phone] ZELDA Smith, park activities coordinator Nurse Clinician For issues on weeknights after 5pm and weekends please call [phone] and ask for the Vascular Fellow operational test mechanic. General Instructions None Future Appointments and Orders Future Appointments Provider Department Dept Phone 08/26/2017 4:00 PM Aurelia Rivera PA V[facility] [place] [phone] 09/07/2017 3:00 PM LAB, THREE L Lab 3L [facility] [phone] 09/07/2017 4:00 PM Luz Prescott MD Endocrinology [facility] [place] [phone] 09/09/2017 8:00 AM Barbra Soares APRN [facility] Management [facility] [place] [phone] Please bring a list of your current [...] For any problems or questions please call [phone] ZELDA Smith, park activities coordinator Nurse Clinician For issues on weeknights after 5pm and weekends please call [phone] and ask for the Vascular Fellow operational test mechanic. documented in this encounter Medications at Time [...] Note Patient Destination: [facility] ([facility]) [address] [place] [address] Transportation: with (at bedside) Time of Discharge: by 12 noon Level of Care: swing Patient Aware: yes Family Notified: yes Md to call report to: Yissel Quintero BAG MACHINE HELPER already called RN to call report to: [phone] Shirin Wolf Office of Care Management Pager [phone] Shirin Wolf RN - 08/16/2017 10:50 AM EST [facility] has offered pt swing bed. Pt and accept bed. will transport via car. BAG MACHINE HELPER Yissel Quintero aware; d/c paperwork will be completed by 12 noon. [facility] requests pt arrival by 1400 today; BAG MACHINE HELPER, RN, and family aware. BAG MACHINE HELPER called [facility] and was told that they prefer pt to arrive with wound vac dressing applied but clamped. BAG MACHINE HELPER applied new wound vac dressing. RN has [facility] number to call report. PASSR completed; BAG MACHINE HELPER paged to request provider signature in highlighted space. Indigo from [facility] notified via email that home wound vac now cancelled; [facility] has picked up from room and order cancelled. Packet started and provided to community association manager. Medicare important message explained to patient, patient signed. Copy provided to patient and signature page to OCM for inclusion in pt EMR. Radha Georges - 08/16/2017 10:34 AM EST Office of Care Management/Hotel Maintenance Engineer Patient Name: Gregory Hoang : 1945 Patient has been offered a swing bed at [facility]. The patient will be transported by private transportation. No MD to MD report necessary Please call Nursing Report to [phone], ask for valve repairer. Info to accompany patient: Narcotic Prescriptions Copies of Medication Administration Records and IV sheets for past 10 days. Plan: Hotel Maintenance Engineer will be available to the patient and Crew Member-RN and/or Sales And Service Advisor for further assistance. Patient will be discharged to: [place] [phone] Radha Powers, Hotel Maintenance Engineer Mira Black, VAMSI - 08/15/2017 10:05 PM EST [address] Flores to ask if he wanted to hold metoprolol dose. BP 95/58. OK to hold this dose Courtney Brito - 08/15/2017 3:26 PM EST Office of Care Management(OCM)/Hotel Maintenance Engineer(RS)/ D/C Planning re : Patient is [...] status. 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 Vac [...] about patient's referral to: [facility] PHONE: [phone] FAX: [phone] CM spoke with RS who said that [...] rehab. Await recommendations from PT. Covering pager #[phone]. 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 Plate Painter Apprentice Kaitlin Saha, RN Pager #[phone] Payam Rosales - 08/13/2017 2:37 PM EST Bicycle Technician Encounter Note Patient Name: Gregory Hoang : [id number] MR#: [id number] Admit Date: 08/06/2017 1:41 PM Hospital Day 7 days Narrative: Visited to introduce and assess acceptance of Bicycle Technician services. Pt was awake, alert, oriented and in chair and family was there. Assessment:Patient coping positively with stresses of illness/hospitalization at this time. Pt says that he is hoping to get better and his family was there. Pt says that he has family care and supportand taking one day at time. Intervention and Outcome: Provided emotional support and encouraging presence. 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 A letter describing our affiliations was reviewed with them and theywere educated about their right to choose where referrals are placed. Patient requests referral to [facility] [employer]. PHONE: [phone] FAX: [phone]. And Home NPWT (Negative Pressure Wound Therapy) aka wound vac device made available to pt. Serial # confirmed. [facility]ed [facility] Proof of Delivery/Assignment of Benefits Statement(POD/AOB) Form w patient or authorized agent signing on behalf of patient. Copy of POD/AOB provided to pt and other copy faxed to [employer] @ fax# [phone] Expected date of discharge: 08/12/2017. 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 Address: [address] [place] [address] [place] [address] (home) Mobile: Telephone Information: Referring Provider: No [...] [facility] ENDOSCOPY ??? PRO ENDOSCOPY W/VIDEO-ASST VEIN HARVEST, CABG Right 07/07/2017 ENDOSCOPIC HARVEST VEIN(S) FOR CABG (WRVU 0.31) performed by Yuan Retana MD at [facility] MAIN OR ??? 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 Heparin gtt continues to run. Pt a/ox4. R leg elevated on 3 pillows. PIV site unremarkable. Report given to CT. Maddison Hloly RN - 08/10/2017 5:41 AM EST Pt [...] : 1945 AGE 72 y.o. Address: [address] [place] [address] [place] [address] (home) Mobile: Telephone Information: Referring Provider: No [...] [facility] ENDOSCOPY ??? PRO ENDOSCOPY W/VIDEO-ASST VEIN HARVEST, CABG Right 07/07/2017 ENDOSCOPIC HARVEST VEIN(S) FOR CABG (WRVU 0.31) performed by Yuan Retana MD at [facility] MAIN OR ??? 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 Unsuccessful draw attempt, another peanut salter will come [facility] to collect blood for PTT test. Chiquis Trivedi RN - 08/08/2017 4:55 PM EST Patient blood sugar 58 at 1601. Patient given juice, hira crackers, and peanut butter. Sugar rechecked at 1642 for 78. Patient given more hira crackers and peanut butter. concerned about bloodsugars today, discussed plan of care with patient and . Continue q4h glucose monitoring. 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 Vascular resident operational test mechanic and will forward result to the team prior to rounds. 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 Patient [...] [facility] ENDOSCOPY ??? PRO ENDOSCOPY W/VIDEO-ASST VEIN HARVEST, CABG Right 07/07/2017 ENDOSCOPIC HARVEST VEIN(S) FOR CABG (WRVU 0.31) performed by Yuan Retana MD at [facility] MAIN OR ??? PRO THYROIDECTOMY 03/28/2013 THYROIDECTOMY, TOTAL OR COMPLETE performed by Manny Mcknight MD at [facility] MAIN OR Functional Status/Social Hx: [...] left blue toes with CTA showing R CANDY PULLER pseudoaneurysm (now thrombosed) and occluded ATs bilaterally. [...] 2.5x80 5. Completion RLE angiogram 6. L CANDY PULLER angiogram 7. 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 - L CANDY PULLER angriogram demonstrated: High femoral bifurcation over the proximal half of the femoral head. L CANDY PULLER access in the distal L CANDY PULLER. - Closure device: Mynx Technical Procedure: The [...] for a 45cm 5F Destination. V18 and [place] and QuickCross catheters were used to select [...] 5F. A stationed picture of the L CANDY PULLER was performed as the patient was noted to have a very high bifurcation. Access appeared in the distal R CANDY PULLER. Closure and sheath removal was performed with [...] PM EST 1440 report called to 5 [place] nurse Tessa AGUSTIN documented in this encounter [...] to supine -- Bed Mobility Goal, [facility] Level independent -- Bed Mobility Goal, Date [...] days -- Transfer Training Goal, Activity Type qgg-ut-uswnu/kbdgy-re-zyw -- Transfer Train Goal, [facility] Level conditional independence -- Transfer Train Goal, [...] call cabello within reach, Hourly rounding by RN/WASHER BLANKET. Bed alarm / Chair alarm. Patient-specific fall [...] Smith MD - 08/15/2017 6:28 PM EST [facility] [place] Patient Name: Gregory Hoang : [id number] MR#: [id number] Case Date: 08/09/2017 Surgeon: Surgeon(s) and Role: [...] 2.5x80 5. Completion RLE angiogram 6. L CANDY PULLER angiogram 7. Mynx closure Precautions/Restrictions: fall, sternal [...] other (see comments) (or swing bed) Pager: [phone] BASSAM ELIAS, PT 08/14/2017 Inpatient Physical Therapy [...] to Achieve by discharge Gait Training Goal, [facility] Level conditional independence;set up required Gait Training [...] Their choices are: 1- [facility] PHONE: [phone] FAX: [phone] [facility] [address] [place] [address] 3- [facility]) [address] [place] [address] I have discussed Medicare/Private Insurance [...] RS/CM on Wednesday to follow-up. Covering pager #[phone] for today. Plan of Care - Henrique [...] with additional findings of pseudoaneurysm on R CANDY PULLER and bilateral anterior tibial artery occlusions. Was [...] 1 Taking at Unknown time ??? ACCU-CHEK ETRA PLUS TEST STRP Strip 2-3 [...] an outpatient once discharged. Have patient call [phone] to set up an appointment. Follow-up: Dermatology will sign-off for now. Please do not hesitate to contact us if you have any questions orconcerns. Impression and Recommendations discussed with primary team on 08/13/2017. Karo Henderson MD Resident in Dermatology Section of Dermatology, Department of Surgery [facility] Pager [phone] Patient seen and evaluated with staff Bridal Stylist Sales Consultant: Halima Cordero MD Section of Dermatology [facility] Level of Resident Supervision: Direct Supervision [...] 2.5x80 5. Completion RLE angiogram 6. L CANDY PULLER angiogram 7. Mynx closure Active Non-Hospital Problems [...] home with home health ([facility] PT&OT) Pager: [phone] YASIR TELLO OT 08/12/2017 Occupational Therapy Rehabilitation [...] 2.5x80 5. Completion RLE angiogram 6. L CANDY PULLER angiogram 7. Mynx closure Past Medical History: [...] with 24/7 assistance and maximal services) Pager: [phone] NICHOLAS MORA, PT 08/12/2017 Physical Therapy Rehabilitation [...] to supine -- Bed Mobility Goal, [facility] Level independent -- Bed Mobility Goal, Outcome Achieved -- goal ongoing Goal: Gait Training Goal Stand Alone Therapy Goal Outcome: Ongoing (Interventions Implemented as Appropriate) 08/11/17 1310 08/12/17 1510 Gait Training Goal Gait Training Goal, Date Established 08/11/17 -- Gait Training Goal, Time to Achieve 5 - 7 days -- Gait Training Goal, [facility] Level conditional independence -- Gait Training Goal, [...] days -- Transfer Training Goal, Activity Type fnv-ml-apeaf/kxsxv-tx-kya -- Transfer Train Goal, 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 Completion RLE angiogram 6. L CANDY PULLER angiogram 7. Mynx closure He is very [...] Anticipated Discharge Disposition: inpatient rehabilitation facility Pager: [phone] LAWRENCE GONZALEZ, PT 08/11/2017 Physical Therapy Rehabilitation [...] sit/sit to supine Bed Mobility Goal, [facility] Level independent Goal: Gait Training Goal Stand Alone Therapy Goal Outcome: Ongoing (Interventions Implemented as Appropriate) 08/11/17 1310 Gait Training Goal Gait Training Goal, Date Established 08/11/17 Gait Training Goal, Time to Achieve 5 - 7 days Gait Training Goal, [facility] Level conditional independence Gait Training Goal, Assist [...] 7 days Transfer Training Goal, Activity Type ecn-rr-wewow/exidz-ny-wot Transfer Train Goal, [facility] Level conditional independence Plan of [facility] Annetta Sandoval RN - 08/11/2017 7:21 [...] call cabello within reach, Hourly rounding by RN/WASHER BLANKET. Bed alarm / Chair alarm. ? Patient-specific [...] 04/05/2013 Hospitalizations Within the Past 30 Days: [facility] [place]/2017 Anticipated Length Of Stay (If known): Expected Length of Hospitalization: 5-7 days2-3 days Current Decision-Making Capacity: Alert and oriented x 4 Advance Care Planning: on file Kisha Hoang [facility] [phone] Current Coping/Education/Information Needs: pt and spouse state [...] Health/Prescription Coverage: Primary Insurance: MEDICARE Secondary Insurance: [employer] [facility] Prescription Coverage: See above [facility] Other: N/A Primary Care Provider: Lovely Vicente MD [phone] Patient/Caregiver Goals of Treatment: Patient plans to [...] of care planning. Kaitlin Saha RN Pager: [phone] Plan of Care - Melba Jaramillo RN [...] Overview Goal: Plan of Care Review 08/08/17 3614 Coping/Psychosocial Plan Of Care Reviewed With patient [...] call cabello within reach, Hourly rounding by RN/WASHER BLANKET. Bed alarm / Chair alarm. Patient-specific fall [...] at bedside and MD TEAM Carrying pager [phone] contacted (via Radio page) and notified of [...] Dolan MD [facility] [place], [place] [address] (Wo rk) 05/28/2022 Laboratory Appointment Lab 05/28/2022 Office Visit Cardiology Zulma Dolan MD [facility] [place] [address] Liz Poole PA [facility] [place] [address] 06/10/2022 Office Visit Dermatology Laura Scherer MD [facility] [address], [place] [address] [...] Signature POC Glucose 160 65 - 199 [facility] mg/dL [facility] Comment: Supplemental ranges: <140 mg/dL before meals <180 mg/dL all other times of the day Specimen Anatomical Collection Method Collection Time Receive d Time (Source) Location / / Volume Laterality Blood specimen 08/16/2017 7:28 AM 018 7:28 (specimen) EST AM EST Yonathan Smith MD POINT OF CARE TEST ORDERABLE S Performing Organization Address City/State/ZIP [place] [address] (ABNORMAL) Differential, Automated (08/16/2017 5:08 AM EST) [facility] Method Time Signature Neutrophils % 73.9 % [facility]OR[facility]ORY Neutr Abs (ANC) 5.37 1.70 - [facility] 6.10 [facility] x10(3)/[facility] LABORATORY Lymphocytes % 10.1 % [facility]OR[facility]ORY Lymphocytes Abs 0.7 (L) 0.9 - 3.2 [facility] x10(3)/[facility] LABORATORY Monocytes % 10.1 % [facility] LABOR[facility] Monocyte Abs 0.7 0.3 - 0.9 [facility] x10(3)/[facility] LABORATORY Eosinophils % 5.1 % [facility] Eosinophils Abs 0.4 0.0 - 0.4 [facility] x10(3)/[facility] LABORATORY Basophils % 0.4 % [facility] Basophils Abs 0.0 0.0 - 0.1 [facility] x10(3)/[facility] LABORATORY Immature Gran % 0.40 % [facility] [...] - 0.04 x10(3)/[facility] Specimen Anatomical Collection Method Collection Time Receive d Time (Source) Location / / Volume Laterality Blood specimen 08/16/2017 5:08 AM 018 5:20 (specimen) EST AM EST Resulting Agency Comment Spec In Lab Yonathan Smith MD HEMATOLOGY ORDERABLES Performing Organization Address City/State/ZIP [place] [address] (ABNORMAL) Hemogram (08/16/2017 5:08 AM EST) Analysis Performed At Patho logist Time Signature WBC 7.3 4.0 - 9.5 [facility] x10(3)/[facility] LABORATORY RBC 3.36 (L) 4.58 - [facility] SU 5.54 [facility] x10(6)/[facility] LABORATORY Hemoglobin 9.7 (L) 13.7 - [facility] 16.[facility] gm/dL [facility] Hematocrit 30.3 (L) 40.5 - [facility] 48.5 % [facility] MCV 90.2 82.9 - [facility] 93.1 [facility] LABORATORY MCH 28.9 27.5 - [facility] 32.1 pg [facility] MCHC 32.0 32.0 - [facility] 35.7 gm/dL [facility] Platelets 282 145 - 357 [facility] x10(3)/[facility] LABORATORY RDWSD 53.9 (H) 36.0 - [facility] 45.0 [facility] LABORATORY RDWCV 16.5 (H) 11.4 - [facility] SU 13.8 % [facility] LABORATORY MPV 9.0 7.6 - 12.9 [facility] LABORATORY nRBC % Auto 0.0 % [facility] LABORATORY nRBC Abs Auto 0.000 0.000 - [facility] SU 0.000 [facility] x10(3)/[facility] LABORATORY Specimen Anatomical Collection Method Collection Time Receive d Time (Source) Location / / Volume Laterality Blood specimen 08/16/2017 5:08 AM 018 5:20 (specimen) EST AM EST Resulting Agency Comment Spec In Lab Yonathan Smith MD HEMATOLOGY ORDERABLES Performing Organization Address City/State/ZIP [place] [address] (ABNORMAL) Basic Metabolic Panel (non-fasting) (08/16/2017 5:08 AM EST) P athologist Signature Glucose Lvl 141 65 - 199 [facility] mg/dL [facility] Comment: Diabetes: >=200 mg/dL plus symp toms BUN 29 (H) 10 - 20 mg/dL [facility]OR[facility] Creatinine 1.25 0.80 - 1.50 mg/dL [facility] [...] - 15 mmol/L [facility] Calcium 8.7 8.5 - 10.5 mg/dL [facility] LABORATORY Estimated GFR 57 (L) >=60 [facility] Comment: The reported eGFR should be multiplied b y 1.2 for patients. The MDRD is not an appropriate measure o f renal function for patients with body mass extremes or in patients with acute kidney failure. http://[employer]/DHnkdep http://[employer]/DHMCnkf Specimen Anatomical Collection Method Collection Time Receive d Time (Source) Location / / Volume Laterality Blood specimen 08/16/2017 5:08 AM 018 5:20 (specimen) EST AM EST Resulting Agency Comment Spec In Lab Yonathan Smith MD CHEMISTRY ORDERABLES Performing Organization Address City/State/ZIP [place] [address] (ABNORMAL) Prothrombin Time (08/16/2017 [...] Address City/State/ZIP Code Phon e Number [address] POCT Glucose (08/16/2017 4:09 AM EST) athologist Signature POC Glucose 147 65 - 199 [facility]dL [facility] Comment: Supplemental ranges: <140 mg/dL before meals <180 mg/dL all other times of the day Specimen Anatomical Collection Method Collection Time Receive d Time (Source) Location / / Volume Laterality Blood specimen 08/16/2017 4:09 AM 018 4:09 (specimen) EST AM EST Yonathan Smith MD POINT OF CARE TEST ORDERABLE S Performing Organization Address City/State/[place] [address] POCT Glucose (08/15/2017 11:56 PM EST) athologist Signature POC Glucose 176 65 - 199 [facility] SU mg/dL [facility] Comment: Supplemental ranges: <140 mg/dL before meals <180 mg/dL all other times of the day Specimen Anatomical Collection Method Collection Time Receive d Time (Source) Location / / Volume Laterality Blood specimen 08/15/2017 11:56 8 (specimen) PM EST 11:56 PM EST Yonathan Smith MD POINT OF CARE TEST ORDERABLE S Performing Organization Address City/State/[place] [address] POCT Glucose (08/15/2017 8:05 PM EST) athologist Signature POC Glucose 136 65 - 199 [place] mg/dL [facility]OR[facility]ORY Comment: Supplemental ranges: <140 mg/dL before meals <180 mg/dL all other times of the day Specimen Anatomical Collection Method Collection Time Receive d Time (Source) Location / / Volume Laterality Blood specimen 08/15/2017 8:05 PM 018 8:05 (specimen) EST PM EST Yonathan Smith MD POINT OF CARE TEST ORDERABLE S Performing Organization Address City/State/[place] [address] (ABNORMAL) POCT Glucose (08/15/2017 4:50 PM EST) athologist Signature POC Glucose 232 (H) 65 - 199 [facility] SU mg/dL [facility] Comment: Supplemental ranges: <140 mg/dL before meals <180 mg/dL all other times of the day Specimen Anatomical Collection Method Collection Time Receive d Time (Source) Location / / Volume Laterality Blood specimen 08/15/2017 4:50 PM 018 4:50 (specimen) EST PM EST Yonathan Smith MD POINT OF CARE TEST ORDERABLE S Performing Organization Address City/State/[place] [address] POCT Glucose (08/15/2017 12:04 PM EST) athologist Signature POC Glucose 135 65 - 199 [facility] SU mg/dL [facility] Comment: Supplemental ranges: <140 mg/dL before meals <180 mg/dL all other times of the day Specimen Anatomical Collection Method Collection Time Receive d Time (Source) Location / / Volume Laterality Blood specimen 08/15/2017 12:04 8 (specimen) PM EST 12:04 PM EST Yonathan Smith MD POINT OF CARE TEST ORDERABLE S Performing Organization Address City/State/[place] [address] POCT Glucose (08/15/2017 7:36 AM EST) P athologist Signature POC Glucose 124 65 - 199 [facility] mg/dL [facility] Comment: Supplemental ranges: <140 mg/dL before meals <180 mg/dL all other times of the day Specimen Anatomical Collection Method Collection Time Receive d Time (Source) Location / / Volume Laterality Blood specimen 08/15/2017 7:36 AM 018 7:36 (specimen) EST AM EST Yonathan Smith MD POINT OF CARE TEST ORDERABLE S Performing Organization Address City/State/ZIP [place] [address] (ABNORMAL) Differential, Automated (08/15/2017 6:22 AM EST) Patholo gist Method Time Signature Neutrophils % 76.1 % [facility] LABORATORY Neutr Abs (ANC) 6.62 (H) 1.70 - [facility] 6.10 [facility] x10(3)/[facility] L LABORATORY Lymphocytes % 9.3 % [facility] LABORATORY Lymphocytes Abs 0.8 (L) 0.9 - 3.2 [facility] x10(3)/[facility] LABORATORY Monocytes % 9.4 % [facility] LABORATORY Monocyte Abs 0.8 0.3 - 0.9 [facility] x10(3)/[facility] LABORATORY Eosinophils % 4.0 % [facility] LABORATORY Eosinophils Abs 0.4 0.0 - 0.4 [facility] x10(3)/[facility] LABORATORY Basophils % 0.6 % [facility] LABORATORY Basophils Abs 0.0 0.0 - 0.1 [facility] x10(3)/[facility] LABORATORY Immature Gran [...] Organization Address City/State/ZIP [place] [address] (ABNORMAL) Hemogram (08/15/2017 6:22 AM EST) Analysis Performed At Patho logist Time Signature WBC 8.7 4.0 - 9.5 [facility] x10(3)/[facility] LABORATORY RBC 3.21 (L) 4.58 - [facility] 5.54 [facility] x10(6)/[facility] LABORATORY Hemoglobin 9.1 (L) 13.7 - [facility] 16.5 gm/dL [facility] LABORATORY Hematocrit 29.0 (L) 40.5 - [facility] 48.5 % [facility] LABORATORY MCV 90.3 82.9 - [facility]1 [facility] LABORATORY MCH 28.3 27.5 - [facility] 32.1 pg [facility] LABORATORY MCHC 31.4 (L) 32.0 - [facility] 35.[facility] gm/dL [facility] LABORATORY Platelets 254 145 - 357 [facility] x10(3)/[facility] LABORATORY RDWSD 53.9 (H) 36.0 - [facility] SU 45.0 [facility] LABORATORY RDWCV 16.3 (H) 11.4 - [facility] SU 13.8 % [facility] LABORATORY MPV 8.8 7.6 - 12.9 [facility] LABORATORY nRBC % Auto 0.0 % [facility] LABORATORY nRBC Abs Auto 0.000 0.000 - [facility] SU 0.000 [facility] x10(3)/[facility] LABORATORY Specimen Anatomical Collection Method Collection Time Receive d Time (Source) Location / / Volume Laterality Blood specimen 08/15/2017 6:22 AM 018 6:33 (specimen) EST AM EST Resulting Agency Comment Spec In Lab Yonathan Smith MD HEMATOLOGY ORDERABLES Performing Organization Address City/[facility]/ZIP [place] [address] (ABNORMAL) Basic Metabolic Panel (non-fasting) (08/15/2017 6:22 AM EST) athologist Signature Glucose Lvl 118 65 - 199 [facility] mg/dL [facility] Comment: Diabetes: >=200 mg/dL plus symp toms BUN 27 (H) 10 - 20 mg/dL [facility] LABORATORY Creatinine 1.12 0.80 - 1.50 mg/dL [facility] [...] or in patients with acute kidney failure. [email or web address] Trunk/DHnkdep [email or web address] Trunk/DHMCnkf Specimen Anatomical Collection Method Collection Time Receive d Time (Source) Location / / Volume Laterality Blood specimen 08/15/2017 6:22 AM 018 6:33 (specimen) EST AM EST Resulting Agency Comment Spec In Lab Yonathan Smith MD CHEMISTRY ORDERABLES Performing Organization Address City/[facility]/[place] [address] (ABNORMAL) Prothrombin Time (08/15/2017 [...] Address City/State/[place] [address] POCT Glucose (08/15/2017 4:33 AM EST) athologist Signature POC Glucose 164 65 - 199 [facility]dL [facility] Comment: Supplemental ranges: <140 mg/dL before meals <180 mg/dL all other times of the day Specimen Anatomical Collection Method Collection Time Receive d Time (Source) Location / / Volume Laterality Blood specimen 08/15/2017 4:33 AM 018 4:33 (specimen) EST AM EST Yonathan Smith MD POINT OF CARE TEST ORDERABLE S Performing Organization Address City/State/[place] [address] POCT Glucose (08/15/2017 12:12 AM EST) athologist Signature POC Glucose 89 65 - 199 [facility]dL [facility] Comment: Supplemental ranges: <140 mg/dL before meals <180 mg/dL all other times of the day Specimen Anatomical Collection Method Collection Time Receive d Time (Source) Location / / Volume Laterality Blood specimen 08/15/2017 12:12 8 (specimen) AM EST 12:12 AM EST Yonathan Smith MD POINT OF CARE TEST ORDERABLE S Performing Organization Address City/State/[place] [address] (ABNORMAL) POCT Glucose (08/14/2017 8:07 PM EST) athologist Signature POC Glucose 204 (H) 65 - 199 [place] [facility] mg/dL [facility] Comment: Supplemental ranges: <140 mg/dL before meals <180 mg/dL all other times of the day Specimen Anatomical Collection Method Collection Time Receive d Time (Source) Location / / Volume Laterality Blood specimen 08/14/2017 8:07 PM 018 8:07 (specimen) EST PM EST Yonathan Smith MD POINT OF CARE TEST ORDERABLE S Performing Organization Address City/State/[place] [address] POCT Glucose (08/14/2017 5:11 PM EST) athologist Signature POC Glucose 174 65 - 199 [place] mg/dL [facility] Comment: Supplemental ranges: <140 mg/dL before meals <180 mg/dL all other times of the day Specimen Anatomical Collection Method Collection Time Receive d Time (Source) Location / / Volume Laterality Blood specimen 08/14/2017 5:11 PM 018 5:11 (specimen) EST PM EST Yonathan Smith MD POINT OF CARE TEST ORDERABLE S Performing Organization Address City/State/[place] [address] POCT Glucose (08/14/2017 12:10 PM EST) athologist Signature POC Glucose 141 65 - 199 [place] [facility] mg/dL [facility] Comment: Supplemental ranges: <140 mg/dL before meals <180 mg/dL all other times of the day Specimen Anatomical Collection Method Collection Time Receive d Time (Source) Location / / Volume Laterality Blood specimen 08/14/2017 12:10 8 (specimen) PM EST 12:10 PM EST Yonathan Smith MD POINT OF CARE TEST ORDERABLE S Performing Organization Address City/State/ZIP Code Phon e Number [address] POCT Glucose (08/14/2017 8:07 AM EST) P athologist Signature POC Glucose 158 65 - 199 [facility] mg/dL [facility] Comment: Supplemental ranges: <140 mg/dL before meals <180 mg/dL all other times of the day Specimen Anatomical Collection Method Collection Time Receive d Time (Source) Location / / Volume Laterality Blood specimen 08/14/2017 8:07 AM 018 8:07 (specimen) EST AM EST Yonathan Smith MD POINT OF CARE TEST ORDERABLE S Performing Organization Address City/State/[place] [address] (ABNORMAL) Differential, Automated (08/14/2017 4:52 AM EST) Patholo gist Method Time Signature Neutrophils % 78.6 % [facility] LABORATORY Neutr Abs (ANC) 7.70 (H) 1.70 - [facility] 6.10 [facility] x10(3)/[facility] L LABORATORY Lymphocytes % 7.8 % [facility] LABORATORY Lymphocytes Abs 0.8 (L) 0.9 - 3.2 [facility] x10(3)/[facility] LABORATORY Monocytes % 8.8 % [facility] LABORATORY Monocyte Abs 0.9 0.3 - 0.9 [facility] x10(3)/[facility] LABORATORY Eosinophils % 4.0 % [facility] LABORATORY Eosinophils Abs 0.4 0.0 - 0.4 [facility] x10(3)/[facility] LABORATORY Basophils % 0.5 % [facility] LABORATORY Basophils Abs 0.0 0.0 - 0.1 [facility] x10(3)/[facility] LABORATORY Immature Gran % 0.30 [...] Melisa Gran Abs 0.03 0.00 - 0.04 x10(3)/[facility] Specimen Anatomical Collection Method Collection Time Receive d Time (Source) Location / / Volume Laterality Blood specimen 08/14/2017 4:52 AM 018 5:08 (specimen) EST AM EST Resulting Agency Comment Spec In Lab Yonathan Smith MD HEMATOLOGY ORDERABLES Performing Organization Address City/State/ZIP [place] [address] (ABNORMAL) Hemogram (08/14/2017 4:52 AM EST) Analysis Performed At Patho logist Time Signature WBC 9.8 (H) 4.0 - 9.5 [facility] x10(3)/[facility] LABORATORY RBC 3.32 (L) 4.58 - [facility] 5.54 [facility] x10(6)/[facility] LABORATORY Hemoglobin 9.5 (L) 13.7 - [facility] 16[facility] gm/dL [facility] LABORATORY Hematocrit 30.3 (L) 40.5 - [facility] SU 48.5 % [facility] LABORATORY MCV 91.3 82.9 - [facility] SU 93.1 [facility] LABORATORY MCH 28.6 27.5 - [place] [facility] 32.1 pg [facility] LABORATORY MCHC 31.4 (L) 32.0 - [facility] SU 35.7 gm/dL [facility] LABORATORY Platelets 263 145 - 357 [facility] x[facility](3[facility] LABORATORY RDWSD 54.8 (H) 36.0 - [facility] SU 45.0 [facility] RDWCV 16.5 (H) 11.4 - [facility] SU 13.8 % [facility] LABORATORY MPV 9.1 7.6 - 12.9 [facility] LABORATORY nRBC % Auto 0.0 % [facility] LABORATORY nRBC Abs Auto 0.000 0.000 - [facility] 0.000 [facility] x10(3)/[facility] LABORATORY Specimen Anatomical Collection Method Collection Time Receive d Time (Source) Location / / Volume Laterality Blood specimen 08/14/2017 4:52 AM 018 5:08 (specimen) EST AM EST Resulting Agency Comment Spec In Lab Yonathan Smith MD HEMATOLOGY ORDERABLES Performing Organization Address City/[facility]/ZIP [place] [address] (ABNORMAL) Prothrombin Time (08/14/2017 [...] Organization Address City/State/ZIP [place] [address] (ABNORMAL) Basic Metabolic Panel (non-fasting) (08/14/2017 4:52 AM EST) athologist Signature Glucose Lvl 135 65 - 199 [facility] mg/dL [facility] LABOR[facility]ORY Comment: Diabetes: >=200 mg/dL plus symp toms BUN 25 (H) 10 - 20 mg/dL [facility] LABORATORY Creatinine 1.36 0.80 - 1.50 mg/dL [facility] [...] CENTER LABORATORY Estimated GFR 52 (L) >=60 [facility] LABORATORY Comment: The reported eGFR should be multiplied b y 1.2 for patients. The MDRD is not an appropriate measure o f renal function for patients with body mass extremes or in patients with acute kidney failure. http://[email or web address] Trunk/DHnkdep http://[employer]/DHMCnkf Specimen Anatomical Collection Method Collection Time Receive d Time (Source) Location / / Volume Laterality Blood specimen 08/14/2017 4:52 AM 018 5:08 (specimen) EST AM EST Resulting Agency Comment Spec In Lab Yonathan Smith MD CHEMISTRY ORDERABLES Performing Organization Address City/State/ZIP [place] [address] POCT Glucose (08/14/2017 3:56 AM EST) P athologist Signature POC Glucose 135 65 - 199 [facility] mg/dL [facility] LABORATORY Comment: Supplemental ranges: <140 mg/dL before meals <180 mg/dL all other times of the day Specimen Anatomical Collection Method Collection Time Receive d Time (Source) Location / / Volume Laterality Blood specimen 08/14/2017 3:56 AM 018 3:56 (specimen) EST AM EST Yonathan Smith MD POINT OF CARE TEST ORDERABLE S Performing Organization Address City/State/ZIP [place] [address] POCT Glucose (08/13/2017 11:13 PM EST) athologist Signature POC Glucose 118 65 - 199 [place] mg/dL [facility] LABORATORY Comment: Supplemental ranges: <140 mg/dL before meals <180 mg/dL all other times of the day Specimen Anatomical Collection Method Collection Time Receive d Time (Source) Location / / Volume Laterality Blood specimen 08/13/2017 11:13 8 (specimen) PM EST 11:13 PM EST Yonathan Smith MD POINT OF CARE TEST ORDERABLE S Performing Organization Address City/[facility]/ZIP [place] [address] (ABNORMAL) POCT Glucose (08/13/2017 8:08 PM EST) athologist Signature POC Glucose 204 (H) 65 - 199 [place] mg/dL [facility] LABOR[facility]ORY Comment: Supplemental ranges: <140 mg/dL before meals <180 mg/dL all other times of the day Specimen Anatomical Collection Method Collection Time Receive d Time (Source) Location / / Volume Laterality Blood specimen 08/13/2017 8:08 PM 018 8:08 (specimen) EST PM EST Yonathan Smith MD POINT OF CARE TEST ORDERABLE S Performing Organization Address City/[facility]/ZIP Code [place] [address] POCT Glucose (08/13/2017 4:02 PM EST) athologist Signature POC Glucose 145 65 - 199 [place] mg/dL [facility] LABOR[facility]ORY Comment: Supplemental ranges: <140 mg/dL before meals <180 mg/dL all other times of the day Specimen Anatomical Collection Method Collection Time Receive d Time (Source) Location / / Volume Laterality Blood specimen 08/13/2017 4:02 PM 018 4:02 (specimen) EST PM EST Yonathan Smith MD POINT OF CARE TEST ORDERABLE S Performing Organization Address City/State/[place] [address] POCT Glucose (08/13/2017 11:31 AM EST) P athologist Signature POC Glucose 179 65 - 199 [facility]dL [facility] Comment: Supplemental ranges: <140 mg/dL before meals <180 mg/dL all other times of the day Specimen Anatomical Collection Method Collection Time Receive d Time (Source) Location / / Volume Laterality Blood specimen 08/13/2017 11:31 8 (specimen) AM EST 11:31 AM EST Yonathan Smith MD POINT OF CARE TEST ORDERABLE S Performing Organization Address City/[facility]/[place] [address] (ABNORMAL) POCT Glucose (08/13/2017 10:16 AM EST) athologist Signature POC Glucose 211 (H) 65 - 199 [facility] mg/dL [facility] LAB[facility]ORY Comment: Supplemental ranges: <140 mg/dL before meals <180 mg/dL all other times of the day Specimen Anatomical Collection Method Collection Time Receive d Time (Source) Location / / Volume Laterality Blood specimen 08/13/2017 10:16 8 (specimen) AM EST 10:16 AM EST Yonathan Smith MD POINT OF CARE TEST ORDERABLE S Performing Organization Address City/[facility]/ZIP Code Phon e Number [address] JULIAN, legs, multiple levels (08/13/2017 7:42 AM EST) Component Value Ref Test Analysis Performed At Patholo gist Range Method Time Signature VB Text Department: Vascular Surgery Lab VASCUBASE Report Patient: [id number] (GREGORY HOANG) CPT: 46469 ICD10: I99.8 Referring Physician: YONATHAN SMITH ?? Indications: s/p R 1,2,3 toe amps with red left foot, need n ew baseline Diabetes mellitus: yes ICD10 Diagnosis Code: I99.8 Findings: Right ?Pressure (mm Hg) ?? JULIAN ??Waveform ?TBI ?? Brachial Artery ?138 ? Dorsalis Pedis (Ankle) Arter y ?132 ? 0.94 ??[place]- Biphasic ? Posterior Tibial (Ankle) Art anila ??154 ? 1.10 ??[place]-Biphasic ? Fourth Toe ? 67 ? 0.48 [...] 156 65 - 199 [place] mg/dL [facility] LAB[facility]ORY Comment: Supplemental ranges: <140 mg/dL before meals <180 mg/dL all other times of the day Specimen Anatomical Collection Method Collection Time Receive d Time (Source) Location / / Volume Laterality Blood specimen 08/13/2017 7:33 AM 018 7:33 (specimen) EST AM EST Yonathan Smith MD POINT OF CARE TEST ORDERABLE S Performing Organization Address City/State/[place] [address] (ABNORMAL) Differential, Automated (08/13/2017 5:33 AM EST) [facility] Method Time Signature Neutrophils % 77.8 % [facility] LABORATORY Neutr Abs (ANC) 7.83 (H) 1.70 - [facility] 6.10 [facility] x10(3)/[facility] L LABORATORY Lymphocytes % 8.4 % [facility] LABORATORY Lymphocytes Abs 0.8 (L) 0.9 - 3.2 [facility] x10(3)/[facility] LABORATORY Monocytes % 8.3 % [facility] LABORATORY Monocyte Abs 0.8 0.3 - 0.9 [facility] x10(3)/[facility] LABORATORY Eosinophils % 4.6 % [facility] LABORATORY Eosinophils Abs 0.5 (H) 0.0 - 0.4 [facility] x10(3)/[facility] LABORATORY Basophils % 0.5 % [facility] LABORATORY Basophils Abs 0.0 0.0 - 0.1 [facility] x10(3)/[facility] LABORATORY Immature Gran % 0.40 [...] Address City/State/ZIP Code Phon e Number [address] (ABNORMAL) Hemogram (08/13/2017 5:33 AM EST) Analysis Performed At Patho logist Time Signature WBC 10.1 (H) 4.0 - 9.5 [facility] x10(3)/[facility] LABORATORY RBC 3.21 (L) 4.58 - [facility] 5.54 [facility] x10(6)/[facility] LABORATORY Hemoglobin 9.2 (L) 13.7 - [facility] 16.5 gm/dL [facility] LABORATORY Hematocrit 29.6 (L) 40.5 - [facility] 48.5 % [facility] LABORATORY MCV 92.2 82.9 - [facility] 93.1 [facility] LABORATORY MCH 28.7 27.5 - [facility] 32.1 pg [facility] LABORATORY MCHC 31.1 (L) 32.0 - [facility] gm/dL [facility] LABORATORY Platelets 263 145 - 357 [facility] x10(3)/[facility] LABORATORY RDWSD 54.8 (H) 36.0 - [facility] 45.0 [facility] LABORATORY RDWCV 16.4 (H) 11.4 - [facility] 13.8 % [facility] LABORATORY MPV 9.2 7.6 - 12.9 [facility] LABORATORY nRBC % Auto 0.0 % [facility] LABORATORY nRBC Abs Auto 0.000 0.000 - [facility] 0.000 [facility] x10(3)/[facility] LABORATORY Specimen Anatomical Collection Method Collection Time Receive d Time (Source) Location / / Volume Laterality Blood specimen 08/13/2017 5:33 AM 018 6:04 (specimen) EST AM EST Resulting Agency Comment Spec In Lab Yonathan Smith MD HEMATOLOGY ORDERABLES Performing Organization Address City/State/[place] [address] (ABNORMAL) Prothrombin Time (08/13/2017 [...] City/State/ZIP Code Phon e Number [place] [id number] (ABNORMAL) Basic Metabolic Panel (non-fasting) (08/13/2017 5:33 AM EST) athologist Signature Glucose Lvl 126 65 - 199 [facility] mg/dL [facility] LABORATORY Comment: Diabetes: >=200 mg/dL plus symp toms BUN 18 10 - 20 mg/dL [facility] LABORATORY Creatinine 1.16 0.80 - 1.50 mg/dL [facility] [...] - 15 mmol/L [facility] LABORATORY Calcium 7.9 (L) 8.5 - 10.5 mg/dL [facility] LABORATORY Estimated GFR >60 >=60 [facility] LABORATORY Comment: The reported eGFR should be multiplied b y 1.2 for patients. The MDRD is not an appropriate measure o f renal function for patients with body mass extremes or in patients with acute kidney failure. http://[employer]/DHnkdep http://[employer]/DHMCnkf Specimen Anatomical Collection Method Collection Time Receive d Time (Source) Location / / Volume Laterality Blood specimen 08/13/2017 5:33 AM 018 6:04 (specimen) EST AM EST Resulting Agency Comment Spec In Lab Yonathan Smith MD CHEMISTRY ORDERABLES Performing Organization Address City/[facility]/ZIP [facility] [place] Phon e Number [address] POCT Glucose (08/13/2017 4:29 AM EST) athologist Signature POC Glucose 111 65 - 199 [facility]dL [facility] LABORATORY Comment: Supplemental ranges: <140 mg/dL before meals <180 mg/dL all other times of the day Specimen Anatomical Collection Method Collection Time Receive d Time (Source) Location / / Volume Laterality Blood specimen 08/13/2017 4:29 AM 018 4:29 (specimen) EST AM EST Yonathan Smith MD POINT OF CARE TEST ORDERABLE S Performing Organization Address City/[facility]/ZIP Code Phon e Number [address] POCT Glucose (08/12/2017 11:28 PM EST) athologist Signature POC Glucose 164 65 - 199 [facility]dL [facility] LABORATORY Comment: Supplemental ranges: <140 mg/dL before meals <180 mg/dL all other times of the day Specimen Anatomical Collection Method Collection Time Receive d Time (Source) Location / / Volume Laterality Blood specimen 08/12/2017 11:28 8 (specimen) PM EST 11:28 PM EST Yonathan Smith MD POINT OF CARE TEST ORDERABLE S Performing Organization Address City/[facility]/[place] [address] (ABNORMAL) POCT Glucose (08/12/2017 7:40 PM EST) athologist Signature POC Glucose 209 (H) 65 - 199 [facility] SU mg/dL [facility] LABORATORY Comment: Supplemental ranges: <140 mg/dL before meals <180 mg/dL all other times of the day Specimen Anatomical Collection Method Collection Time Receive d Time (Source) Location / / Volume Laterality Blood specimen 08/12/2017 7:40 PM 018 7:40 (specimen) EST PM EST Yonathan Smith MD POINT OF CARE TEST ORDERABLE S Performing Organization Address City/State/ZIP Code Phon e Number [address] POCT Glucose (08/12/2017 4:24 PM EST) athologist Signature POC Glucose 161 65 - 199 [facility] mg/dL [facility] LABORATORY Comment: Supplemental ranges: <140 mg/dL before meals <180 mg/dL all other times of the day Specimen Anatomical Collection Method Collection Time Receive d Time (Source) Location / / Volume Laterality Blood specimen 08/12/2017 4:24 PM 018 4:24 (specimen) EST PM EST Yonathan Smith MD POINT OF CARE TEST ORDERABLE S Performing Organization Address City/State/[place] [address] POCT Glucose (08/12/2017 12:00 PM EST) athologist Signature POC Glucose 167 65 - 199 [facility] mg/dL [facility] LABORATORY Comment: Supplemental ranges: <140 mg/dL before meals <180 mg/dL all other times of the day Specimen Anatomical Collection Method Collection Time Receive d Time (Source) Location / / Volume Laterality Blood specimen 08/12/2017 12:00 8 (specimen) PM EST 12:00 PM EST Yonathan Smith MD POINT OF CARE TEST ORDERABLE S Performing Organization Address City/State/[place] [address] POCT Glucose (08/12/2017 7:25 AM EST) P athologist Signature POC Glucose 152 65 - 199 [facility] mg/dL [facility] LABORATORY Comment: Supplemental ranges: <140 mg/dL before meals <180 mg/dL all other times of the day Specimen Anatomical Collection Method Collection Time Receive d Time (Source) Location / / Volume Laterality Blood specimen 08/12/2017 7:25 AM 018 7:25 (specimen) EST AM EST Yonathan Smith MD POINT OF CARE TEST ORDERABLE S Performing Organization Address City/State/ZIP [place] [address] (ABNORMAL) Differential, Automated (08/12/2017 6:29 AM EST) Patholo gist Method Time Signature Neutrophils % 78.7 % [facility] LABORATORY Neutr Abs (ANC) 7.94 (H) 1.70 - [facility] 6.10 [facility] x10(3)/[facility] LABORATORY Lymphocytes % 8.8 % [facility] LABORATORY Lymphocytes Abs 0.9 0.9 - 3.2 [facility] x10(3)/[facility] LABORATORY Monocytes % 7.8 % [facility] LABORATORY Monocyte Abs 0.8 0.3 - 0.9 [facility] x10(3)/[facility] LABORATORY Eosinophils % 3.9 % [facility] LABORATORY Eosinophils Abs 0.4 0.0 - 0.4 [facility] x10(3)/[facility] LABORATORY Basophils % 0.3 % [facility] LABORATORY Basophils Abs 0.0 0.0 - 0.1 [facility] x10(3)/[facility] LABORATORY Immature Gran % 0.50 [...] Organization Address City/State/ZIP [place] [address] (ABNORMAL) Hemogram (08/12/2017 6:29 AM EST) Analysis Performed At Patho logist Time Signature WBC 10.1 (H) 4.0 - 9.5 [facility] x10(3)/[facility] LABORATORY RBC 3.02 (L) 4.58 - [facility] 5.54 [facility] x10(6)/[facility] LABORATORY Hemoglobin 8.7 (L) 13.7 - [facility] 16.5 gm/dL [facility] LABORATORY Hematocrit 28.1 (L) 40.5 - [facility] 48.5 % [facility] LABORATORY MCV 93.0 82.9 - [facility] 93.1 [facility] LABORATORY MCH 28.8 27.5 - [facility] 32.1 pg [facility] LABORATORY MCHC 31.0 (L) 32.0 - [facility] 35.7 gm/dL [facility] LABORATORY Platelets 223 145 - 357 [facility] x10(3)/[facility] LABORATORY RDWSD 56.1 (H) 36.0 - [facility] 45.0 [facility] LABORATORY RDWCV 16.4 (H) 11.4 - [facility] SU 13.8 % [facility] LABORATORY MPV 9.0 7.6 - 12.9 [facility] LABORATORY nRBC % Auto 0.0 % [facility] LABORATORY nRBC Abs Auto 0.000 0.000 - [facility] SU 0.000 [facility] x10(3)/[facility] LABORATORY Specimen Anatomical Collection Method Collection Time Receive d Time (Source) Location / / Volume Laterality Blood specimen 08/12/2017 6:29 AM 018 6:38 (specimen) EST AM EST Resulting Agency Comment Spec In Lab oYnathan Smith MD HEMATOLOGY ORDERABLES Performing Organization Address City/[facility]/[place] [address] (ABNORMAL) Prothrombin Time (08/12/2017 [...] City/[facility]/[place] [address] (ABNORMAL) Basic Metabolic Panel (non-fasting) (08/12/2017 6:29 AM EST) athologist Signature Glucose Lvl 151 65 - 199 [facility] mg/dL [facility] LABORATORY Comment: Diabetes: >=200 mg/dL plus symp toms BUN 18 10 - 20 mg/dL [facility] LABORATORY Creatinine 1.11 0.80 - 1.50 mg/dL [facility] [...] - 15 mmol/L [facility] LABORATORY Calcium 7.9 (L) 8.5 - 10.5 mg/dL [facility] LABORATORY Estimated GFR >60 >=60 [facility] LABORATORY Comment: The reported eGFR should be multiplied b y 1.2 for patients. The MDRD is not an appropriate measure o f renal function for patients with body mass extremes or in patients with acute kidney failure. http://[employer]/DHnkdep http://[employer]/DHMCnkf Specimen Anatomical Collection Method Collection Time Receive d Time (Source) Location / / Volume Laterality Blood specimen 08/12/2017 6:29 AM 018 6:38 (specimen) EST AM EST Resulting Agency Comment Spec In Lab Yonathan Smith MD CHEMISTRY ORDERABLES Performing Organization Address City/[facility]/ZIP Code Phon e Number [address] POCT Glucose (08/12/2017 4:08 AM EST) athologist Signature POC Glucose 181 65 - 199 [facility] LABORATORY Comment: Supplemental ranges: <140 mg/dL before meals <180 mg/dL all other times of the day Specimen Anatomical Collection Method Collection Time Receive d Time (Source) Location / / Volume Laterality Blood specimen 08/12/2017 4:08 AM 018 4:08 (specimen) EST AM EST Yonathan Smith MD POINT OF CARE TEST ORDERABLE S Performing Organization Address City/[facility]/[place] [address] (ABNORMAL) POCT Glucose (08/12/2017 12:17 AM EST) athologist Signature POC Glucose 221 (H) 65 - 199 [facility]/dL [facility] LABORATORY Comment: Supplemental ranges: <140 mg/dL before meals <180 mg/dL all other times of the day Specimen Anatomical Collection Method Collection Time Receive d Time (Source) Location / / Volume Laterality Blood specimen 08/12/2017 12:17 8 (specimen) AM EST 12:17 AM EST Yonathan Smith MD POINT OF CARE TEST ORDERABLE S Performing Organization Address City/State/[place] [address] (ABNORMAL) POCT Glucose (08/11/2017 8:52 PM EST) athologist Signature POC Glucose 221 (H) 65 - 199 [facility] mg/dL [facility] LABORATORY Comment: Supplemental ranges: <140 mg/dL before meals <180 mg/dL all other times of the day Specimen Anatomical Collection Method Collection Time Receive d Time (Source) Location / / Volume Laterality Blood specimen 08/11/2017 8:52 PM 018 8:52 (specimen) EST PM EST Yonathan Smith MD POINT OF CARE TEST ORDERABLE S Performing Organization Address City/[facility]/[place] [address] POCT Glucose (08/11/2017 5:59 PM EST) athologist Signature POC Glucose 169 65 - 199 [facility] mg/dL [facility] LABORATORY Comment: Supplemental ranges: <140 mg/dL before meals <180 mg/dL all other times of the day Specimen Anatomical Collection Method Collection Time Receive d Time (Source) Location / / Volume Laterality Blood specimen 08/11/2017 5:59 PM 018 5:59 (specimen) EST PM EST Yonathan Smith MD POINT OF CARE TEST ORDERABLE S Performing Organization Address City/State/[place] [address] (ABNORMAL) POCT Glucose (08/11/2017 4:08 PM EST) athologist Signature POC Glucose 240 (H) 65 - 199 [facility] mg/dL [facility] LABORATORY Comment: Supplemental ranges: <140 mg/dL before meals <180 mg/dL all other times of the day Specimen Anatomical Collection Method Collection Time Receive d Time (Source) Location / / Volume Laterality Blood specimen 08/11/2017 4:08 PM 018 4:08 (specimen) EST PM EST Yonathan Smith MD POINT OF CARE TEST ORDERABLE S Performing Organization Address City/State/ZIP Code Phon e Number [address] POCT Glucose (08/11/2017 12:04 PM EST) athologist Signature POC Glucose 182 65 - 199 [facility]/dL [facility] LABORATORY Comment: Supplemental ranges: <140 mg/dL before meals <180 mg/dL all other times of the day Specimen Anatomical Collection Method Collection Time Receive d Time (Source) Location / / Volume Laterality Blood specimen 08/11/2017 12:04 8 (specimen) PM EST 12:04 PM EST Yonathan Smith MD POINT OF CARE TEST ORDERABLE S Performing Organization Address City/[facility]/[place] [address] POCT Glucose (08/11/2017 7:31 AM EST) athologist Signature POC Glucose 156 65 - 199 [facility] mg/dL [facility] LABORATORY Comment: Supplemental ranges: <140 mg/dL before meals <180 mg/dL all other times of the day Specimen Anatomical Collection Method Collection Time Receive d Time (Source) Location / / Volume Laterality Blood specimen 08/11/2017 7:31 AM 018 7:31 (specimen) EST AM EST Yonathan Smith MD POINT OF CARE TEST ORDERABLE S Performing Organization Address City/State/ZIP Code Phon e Number [address] (ABNORMAL) Differential, Automated (08/11/2017 6:16 AM EST) [facility] gist Method Time Signature Neutrophils % 83.7 % [facility] LABORATORY Neutr Abs (ANC) 10.76 (H) 1.70 - [facility] 6.10 [facility] x10(3)/[facility] L LABORATORY Lymphocytes % 6.0 % [facility] LABORATORY Lymphocytes Abs 0.8 (L) 0.9 - 3.2 [facility] x10(3)/[facility] LABORATORY Monocytes % 7.5 % [facility] LABORATORY Monocyte Abs 1.0 (H) 0.3 - 0.9 [facility] x10(3)/[facility] LABORATORY Eosinophils % 2.0 % [facility] LABORATORY Eosinophils Abs 0.3 0.0 - 0.4 [facility] x10(3)/[facility] LABORATORY Basophils % 0.3 % [facility] LABORATORY Basophils Abs 0.0 0.0 - 0.1 [facility] x10(3)/[facility] LABORATORY Immature Gran % 0.50 [...] Organization Address City/State/ZIP [place] [address] (ABNORMAL) Hemogram (08/11/2017 6:16 AM EST) Analysis Performed At Patho logist Time Signature WBC 12.9 (H) 4.0 - 9.5 [facility] x10(3)/[facility] LABORATORY RBC 3.28 (L) 4.58 - [facility] 5.54 [facility] x10(6)/[facility] LABORATORY Hemoglobin 9.5 (L) 13.7 - [facility] 16.5 gm/dL [facility] LABORATORY Hematocrit 29.8 (L) 40.5 - [facility] 48.5 % [facility] LABORATORY MCV 90.9 82.9 - [facility] 93.1 [facility] LABORATORY MCH 29.0 27.5 - [facility] 32.1 [facility] LABORATORY MCHC 31.9 (L) 32.0 - [facility] 35.7 gm/dL [facility] Platelets 236 145 - 357 [facility] x10(3)/[facility] LABORATORY RDWSD 53.5 (H) 36.0 - [facility] 45.0 [facility] LABORATORY RDWCV 16.3 (H) 11.4 - [facility] 13.8 % [facility] LABORATORY MPV 8.8 7.6 - 12.9 [facility] nRBC % Auto 0.0 % [facility] nRBC Abs Auto 0.000 0.000 - [facility] 0.000 [facility] x10(3)/[facility] LABORATORY Specimen Anatomical Collection Method Collection Time Receive d Time (Source) Location / / Volume Laterality Blood specimen 08/11/2017 6:16 AM 018 6:24 (specimen) EST AM EST Resulting Agency Comment Spec In Lab Yonathan Smith MD HEMATOLOGY ORDERABLES Performing Organization Address City/State/ZIP Code Phon e Number [place] [id number]OS[address] LAB[address]ATORY Drive (ABNORMAL) Prothrombin Time (08/11/2017 [...] Organization Address City/State/ZIP [place] [address] Basic Metabolic Panel (non-fasting) (08/11/2017 6:16 AM EST) P athologist Signature Glucose Lvl 139 65 - 199 [facility] mg/dL [facility] LABORATORY Comment: Diabetes: >=200 mg/dL plus symp toms BUN 12 10 - 20 mg/dL [facility] LABORATORY Creatinine 0.91 0.80 - 1.50 mg/dL [facility] [...] or in patients with acute kidney failure. http://[employer]/DHnkdep http://[employer]/DHMCnkf Specimen Anatomical Collection Method Collection Time Receive d Time (Source) Location / / Volume Laterality Blood specimen 08/11/2017 6:16 AM 018 6:24 (specimen) EST AM EST Resulting Agency Comment Spec In Lab Yonathan Smith MD CHEMISTRY ORDERABLES Performing Organization Address City/State/ZIP Code Phon e Number [address] POCT Glucose (08/11/2017 4:07 AM EST) athologist Signature POC Glucose 162 65 - 199 [facility] mg/dL [facility] LABORATORY Comment: Supplemental ranges: <140 mg/dL before meals <180 mg/dL all other times of the day Specimen Anatomical Collection Method Collection Time Receive d Time (Source) Location / / Volume Laterality Blood specimen 08/11/2017 4:07 AM 018 4:07 (specimen) EST AM EST Yonathan Smith MD POINT OF CARE TEST ORDERABLE S Performing Organization Address City/[facility]/ZIP Code Phon e Number [place] [address] POCT Glucose (08/10/2017 11:59 PM EST) athologist Signature POC Glucose 166 65 - 199 [facility] mg/dL [facility] LABORATORY Comment: Supplemental ranges: <140 mg/dL [...] Hospital/ZIP Code Phon e Number [place] [facility] [address] POCT Glucose (08/10/2017 8:12 PM EST) athologist Signature POC Glucose 156 65 - 199 [facility] mg/dL [facility] LABORATORY Comment: Supplemental ranges: <140 mg/dL before meals <180 mg/dL all other times of the day Specimen Anatomical Collection Method Collection Time Receive d Time (Source) Location / / Volume Laterality Blood specimen 08/10/2017 8:12 PM 018 8:12 (specimen) EST PM EST Yonathan Smith MD POINT OF CARE TEST ORDERABLE S Performing Organization Address City/State/[place] [address] (ABNORMAL) POCT Glucose (08/10/2017 4:42 PM EST) P athologist Signature POC Glucose 211 (H) 65 - 199 [facility] mg/dL [facility] LABORATORY Comment: Supplemental ranges: <140 mg/dL before meals <180 mg/dL all other times of the day Specimen Anatomical Collection Method Collection Time Receive d Time (Source) Location / / Volume Laterality Blood specimen 08/10/2017 4:42 PM 018 4:42 (specimen) EST PM EST Yonathan Smith MD POINT OF CARE TEST ORDERABLE S Performing Organization Address City/State/ZIP Code Phon e Number [address] (ABNORMAL) Differential, Automated (08/10/2017 2:30 PM EST) Patholo gist Method Time Signature Neutrophils % 87.6 % [facility] LABORATORY Neutr Abs (ANC) 9.90 (H) 1.70 - [facility] 6.10 [facility] x10(3)/[facility] L LABORATORY Lymphocytes % 4.3 % [facility] LABORATORY Lymphocytes Abs 0.5 (L) 0.9 - 3.2 [facility] x10(3)/[facility] LABORATORY Monocytes % 6.0 % [facility] LABORATORY Monocyte Abs 0.7 0.3 - 0.9 [facility] x10(3)/[facility] LABORATORY Eosinophils % 1.1 % [facility] LABORATORY Eosinophils Abs 0.1 0.0 - 0.4 [facility] x10(3)/[facility] LABORATORY Basophils % 0.4 % [facility] LABORATORY Basophils Abs 0.0 0.0 - 0.1 [facility] x10(3)/[facility] LABORATORY Immature Gran [...] Organization Address City/State/ZIP [place] [address] (ABNORMAL) Hemogram (08/10/2017 2:30 PM EST) Analysis Performed At Patho logist Time Signature WBC 11.3 (H) 4.0 - 9.5 [facility] x10(3)/[facility] LABORATORY RBC 3.13 (L) 4.58 - [facility] SU 5.54 [facility] x10(6)/[facility] LABORATORY Hemoglobin 8.9 (L) 13.7 - [facility] 16.5 gm/dL [facility] LABORATORY Hematocrit 28.4 (L) 40.5 - [facility] 48.5 % [facility] LABORATORY MCV 90.7 82.9 - [facility] 93.1 [facility] LABORATORY MCH 28.4 27.5 - [facility] SU 32.1 pg [facility] LABORATORY MCHC 31.3 (L) 32.0 - [facility] 35.7 gm/dL [facility] LABORATORY Platelets 213 145 - 357 [facility] x10(3)/[facility] LABORATORY RDWSD 53.7 (H) 36.0 - [facility] SU 45.0 [facility] LABORATORY RDWCV 16.4 (H) 11.4 - [facility] SU 13.8 % [facility] LABORATORY MPV 8.9 7.6 - 12.9 [facility] LABORATORY nRBC % Auto 0.0 % [facility] LABORATORY nRBC Abs Auto 0.000 0.000 - [facility] SU 0.000 [facility] x10(3)/[facility] LABORATORY Specimen Anatomical Collection Method Collection Time Receive d Time (Source) Location / / Volume Laterality Blood specimen 08/10/2017 2:30 PM 018 2:48 (specimen) EST PM EST Resulting Agency Comment Spec In Lab Yonathan Smith MD HEMATOLOGY ORDERABLES Performing Organization Address City/State/[place] [address] (ABNORMAL) POCT Glucose (08/10/2017 1:50 PM EST) athologist Signature POC Glucose 243 (H) 65 - 199 [facility] LABORATORY Comment: Supplemental ranges: <140 mg/dL before meals <180 mg/dL all other times of the day Specimen Anatomical Collection Method Collection Time Receive d Time (Source) Location / / Volume Laterality Blood specimen 08/10/2017 1:50 PM 018 1:50 (specimen) EST PM EST Yonathan Smith MD POINT OF CARE TEST ORDERABLE S Performing Organization Address City/[facility]/[place] [address] POCT Glucose (08/10/2017 11:21 AM EST) athologist Signature POC Glucose 156 65 - 199 [facility] mg/dL [facility] LABORATORY Comment: Supplemental ranges: <140 mg/dL before meals <180 mg/dL all other times of the day Specimen Anatomical Collection Method Collection Time Receive d Time (Source) Location / / Volume Laterality Blood specimen 08/10/2017 11:21 8 (specimen) AM EST 11:21 AM EST Yonathan Smith MD POINT OF CARE TEST ORDERABLE S Performing Organization Address City/State/[place] [address] (ABNORMAL) Differential, Automated (08/10/2017 10:28 AM EST) [facility] gist Method Time Signature Neutrophils % 85.3 % [facility] LABORATORY Neutr Abs (ANC) 9.43 (H) 1.70 - [facility] SU 6.10 [facility] x10(3)/[facility] L LABORATORY Lymphocytes % 5.5 % [facility] LABORATORY Lymphocytes Abs 0.6 (L) 0.9 - 3.2 [facility] x10(3)/[facility] LABORATORY Monocytes % 5.9 % [facility] LABORATORY Monocyte Abs 0.6 0.3 - 0.9 [facility] x10(3)/[facility] LABORATORY Eosinophils % 2.1 % [facility] LABORATORY Eosinophils Abs 0.2 0.0 - 0.4 [facility] x10(3)/[facility] LABORATORY Basophils % 0.4 % [facility] LABORATORY Basophils Abs 0.0 0.0 - 0.1 [facility] x10(3)/[facility] LABORATORY Immature Gran % 0.80 % [facility] [...] Organization Address City/State/ZIP [place] [address] (ABNORMAL) Hemogram (08/10/2017 10:28 AM EST) Analysis Performed At Patho logist Time Signature WBC 11.0 (H) 4.0 - 9.5 [facility] x10(3)/[facility] [facility] [place] LABORATORY RBC 3.02 (L) 4.58 - [facility] 5.54 [facility] x10(6)/[facility] LABORATORY Hemoglobin 8.8 (L) 13.7 - [facility] 16.5 gm/dL [facility] LABORATORY Hematocrit 28.1 (L) 40.5 - BARBARA DAVIS 48.5 % [facility] LABORATORY MCV 93.0 82.9 - [facility] 93.1 [facility] LABORATORY MCH 29.1 27.5 - BARBARA OLIVASCK 32.1 pg [facility] LABORATORY MCHC 31.3 (L) 32.0 - BARBARA DAVIS 35.7 gm/dL [facility] LABORATORY Platelets 207 145 - 357 BARBARA MAGEE x10(3)/[facility] LABORATORY RDWSD 55.3 (H) 36.0 - BARBARA OLIVASCK 45.0 [facility] LABORATORY RDWCV 16.4 (H) 11.4 - BARBARA SU 13.8 % [facility] LABORATORY MPV 9.0 7.6 - 12.9 [facility] LABORATORY nRBC % Auto 0.0 % [facility] LABORATORY nRBC Abs Auto 0.000 0.000 - BARBARA ZHAOSU 0.000 [facility] x10(3)/[facility] LABORATORY Specimen Anatomical Collection Method Collection Time Receive d Time (Source) Location / / Volume Laterality Blood specimen 08/10/2017 10:28 8 (specimen) AM EST 10:35 AM EST Resulting Agency Comment Spec In Lab Yonathan Smith MD HEMATOLOGY ORDERABLES Performing Organization Address City/State/ZIP Code Phon e Number [place] [id number]OSPITAL LAB[address]ATORY [address] VS Angiogram/intervention (vascular) (08/10/2017 [...] 2.5x80 5. Completion RLE angiogram 6. L CANDY PULLER angiogram 7. 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 L CANDY PULLER access in the distal L CANDY PULLER. - Closure device: Mynx Technical Procedure: ?The [...] for a 45cm 5F Destination. V18 and Bridgeport a nd QuickCross catheters were used to [...] bifurcation. Access appeared in the distal R CANDY PULLER. Closure and sheath removal was performed with [...] 2.5x80 5. Completion RLE angiogram 6. L CANDY PULLER angiogram 7. 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 L CANDY PULLER access in the distal L CANDY PULLER. - Closure device: Mynx Technical Procedure: The [...] for a 45cm 5F Destination. V18 and Bridgeport a nd QuickCross catheters were used to [...] bifurcation. Access appeared in the distal R CANDY PULLER. Closure and sheath removal was performed with [...] Differential, Automated (08/10/2017 5:50 AM EST) [facility] Method Time Signature Neutrophils % 80.1 % [facility] LABORATORY Neutr Abs (ANC) 9.01 (H) 1.70 - [facility] 6.10 [facility] x10(3)/[facility] LABORATORY Lymphocytes % 8.8 % [facility] LABORATORY Lymphocytes Abs 1.0 0.9 - 3.2 [facility] LABORATORY Monocytes % 8.3 % [facility] LABORATORY Monocyte Abs 0.9 0.3 - 0.9 [facility](3[facility] LABORATORY Eosinophils % 2.0 % [facility] LABORATORY Eosinophils Abs 0.2 0.0 - 0.4 [facility] x10(3)/[facility] LABORATORY Basophils % 0.4 % [facility] LABORATORY Basophils Abs 0.0 0.0 - 0.1 [facility] x10(3)/[facility] LABORATORY Immature Gran % 0.40 [...] Organization Address City/State/ZIP [place] [address] (ABNORMAL) Hemogram (08/10/2017 5:50 AM EST) Analysis Performed At Patho logist Time Signature WBC 11.3 (H) 4.0 - 9.5 [facility] x10(3)/[facility] LABORATORY RBC 3.15 (L) 4.58 - [facility] 5.54 [facility] x10(6)/[facility] LABORATORY Hemoglobin 8.9 (L) 13.7 - [facility] 16.5 gm/dL [facility] LABORATORY Hematocrit 29.0 (L) 40.5 - [facility] 48.5 % [facility] LABORATORY MCV 92.1 82.9 - [facility] 93.1 [facility] LABORATORY MCH 28.3 27.5 - BARBARA SU 32.1 pg [facility] LABORATORY MCHC 30.7 (L) 32.0 - [facility] 35.7 gm/dL [facility] LABORATORY Platelets 231 145 - 357 [facility] x10(3)/[facility] LABORATORY RDWSD 53.9 (H) 36.0 - BARBARA SU 45.0 [facility] LABORATORY RDWCV 16.2 (H) 11.4 - [facility] SU 13.8 % [facility] LABORATORY MPV 8.7 7.6 - 12.9 [facility] LABORATORY nRBC % Auto 0.0 % [facility] LABORATORY nRBC Abs Auto 0.000 0.000 - [facility] 0.000 [facility] x10(3)/[facility] LABORATORY Specimen Anatomical Collection Method Collection Time Receive d Time (Source) Location / / Volume Laterality Blood specimen 08/10/2017 5:50 AM 018 5:59 (specimen) EST AM EST Resulting Agency Comment Spec In Lab Yonathan Smith MD HEMATOLOGY ORDERABLES Performing Organization Address City/State/ZIP [place] [address] (ABNORMAL) Basic Metabolic Panel (non-fasting) (08/10/2017 5:50 AM EST) P athologist Signature Glucose Lvl 135 65 - 199 [facility] mg/dL [facility] LABORATORY Comment: Diabetes: >=200 mg/dL plus [...] or in patients with acute kidney failure. http://[employer] Trunk/DHnkdep http://[employer] Trunk/DHMCnkf Specimen Anatomical Collection Method Collection Time Receive d Time (Source) Location / / Volume Laterality Blood specimen 08/10/2017 5:50 AM 018 5:59 (specimen) EST AM EST Resulting Agency Comment Spec In Lab Yonathan Smith MD CHEMISTRY ORDERABLES Performing Organization Address [facility] [place] [address] (ABNORMAL) Prothrombin Time (08/10/2017 [...] HEMATOLOGY ORDERABLES Performing Organization Address City/[facility] [place] [address] (ABNORMAL) POCT Glucose (08/10/2017 4:01 AM EST) athologist Signature POC Glucose 206 (H) 65 - 199 [facility] mg/dL [facility] LABORATORY Comment: Supplemental ranges: <140 mg/dL before meals <180 mg/dL all other times of the day Specimen Anatomical Collection Method Collection Time Receive d Time (Source) Location / / Volume Laterality Blood specimen 08/10/2017 4:01 AM 018 4:01 (specimen) EST AM EST Yonathan Smith MD POINT OF CARE TEST ORDERABLE S Performing Organization Address City/State/[place] [address] POCT Glucose (08/10/2017 2:01 AM EST) athologist Signature POC Glucose 188 65 - 199 BARBARA SU mg/dL [facility] LABORATORY Comment: Supplemental ranges: <140 mg/dL before meals <180 mg/dL all other times of the day Specimen Anatomical Collection Method Collection Time Receive d Time (Source) Location / / Volume Laterality Blood specimen 08/10/2017 2:01 AM 018 2:01 (specimen) EST AM EST Yonathan Smith MD POINT OF CARE TEST ORDERABLE S Performing Organization Address City/[facility]/[place] [address] (ABNORMAL) POCT Glucose (08/09/2017 11:42 PM EST) athologist Signature POC Glucose 283 (H) 65 - 199 [facility] SU mg/dL [facility] LABORATORY Comment: Supplemental ranges: <140 mg/dL before meals <180 mg/dL all other times of the day Specimen Anatomical Collection Method Collection Time Receive d Time (Source) Location / / Volume Laterality Blood specimen 08/09/2017 11:42 8 (specimen) PM EST 11:42 PM EST Yonathan Smith MD POINT OF CARE TEST ORDERABLE S Performing Organization Address City/State/[place] [address] POCT Glucose (08/09/2017 8:55 PM EST) athologist Signature POC Glucose 182 65 - 199 BARBARA SU mg/dL [facility] LABORATORY Comment: Supplemental ranges: <140 mg/dL before meals <180 mg/dL all other times of the day Specimen Anatomical Collection Method Collection Time Receive d Time (Source) Location / / Volume Laterality Blood specimen 08/09/2017 8:55 PM 018 8:55 (specimen) EST PM EST Yonathan Smith MD POINT OF CARE TEST ORDERABLE S Performing Organization Address City/[facility]/[place] [address] (ABNORMAL) APTT (08/09/2017 6:42 PM EST) athologist Signature PTT 90 (H) 25 - 35 sec [facility] LABORATORY Comment: The recommended therapeutic range for fu ll dose, unfractionated heparin at [facility] is 80 [...] City/[facility]/[place] [address] POCT Glucose (08/09/2017 4:41 PM EST) athologist Signature POC Glucose 195 65 - 199 [facility] mg/dL [facility] LABORATORY Comment: Supplemental ranges: <140 mg/dL before meals <180 mg/dL all other times of the day Specimen Anatomical Collection Method Collection Time Receive d Time (Source) Location / / Volume Laterality Blood specimen 08/09/2017 4:41 PM 018 4:41 (specimen) EST PM EST Yonathan Smith MD POINT OF CARE TEST ORDERABLE S Performing Organization Address City/[facility]/[place] [address] POCT Glucose (08/09/2017 12:29 PM EST) athologist Signature POC Glucose 140 65 - 199 [facility] mg/dL [facility] LABORATORY Comment: Supplemental ranges: <140 mg/dL before meals <180 mg/dL all other times of the day Specimen Anatomical Collection Method Collection Time Receive d Time (Source) Location / / Volume Laterality Blood specimen 08/09/2017 12:29 8 (specimen) PM EST 12:29 PM EST Yonathan Smith MD POINT OF CARE TEST ORDERABLE S Performing Organization Address [facility]/ZIP Code Phon e Number [address] POCT Glucose (08/09/2017 9:59 AM EST) P athologist Signature POC Glucose 135 65 - 199 [facility] mg/dL [facility] LABORATORY Comment: Supplemental ranges: <140 mg/dL before meals <180 mg/dL all other times of the day Specimen Anatomical Collection Method Collection Time Receive d Time (Source) Location / / Volume Laterality Blood specimen 08/09/2017 9:59 AM 018 9:59 (specimen) EST AM EST Yonathan Smith MD POINT OF CARE TEST ORDERABLE S Performing Organization Address [facility]/[place] [address] Specimen to Pathology (08/09/2017 [...] MD PATHOLOGY/CYTOLOGY ORDERABLE S Performing Organization Address City/[facility]/[place] [address] Surgical Pathology Report (08/09/2017 8:40 AM EST) Component Value Ref Test Analysis Performed At Patholo gist Range Method Time Signature Surgical [id number] ? Location: [facility]; [facility]; A [facility] Report The signing pathologist has [...] Henrique Flower Verified: ??08/13/2017 ?Pathologist Performed at: ??-[facility] Dept. [place]ology, [place], [place] CLINICAL INFORMATION Specimen Submitted: A - [...] Organization Address City/State/ZIP [place] [address] Anaerobic Culture (08/09/2017 8:30 AM EST) [facility] Method Time Signature Anaerobic No anaerobic BARBARA SU Culture organisms [facility] LABORATORY Specimen [...] City/[facility]/[place] [address] (ABNORMAL) Abscess/Wound Aspirate Culture (08/09/2017 8:30 AM EST) [facility] Method Time Signature Abscess/Wound Moderate mixed [facility] Aspirate bacterial MAG[place] Culture morphotypes [facility] normal LABORATORY cutaneous leroy (A) Gram Stain Rare White Blood Cells BARBARA Few Gram Positive Cocci in pairs MAGEE () [facility] LABORATORY Organism Gram Positive BARBARA Cocci in pairs MAGEE () [facility] LABORATORY Specimen Anatomical Collection Method Collection [...] Hospital/ZIP Code [place] [address] POCT Glucose (08/09/2017 4:28 AM EST) P athologist Signature POC Glucose 128 65 - 199 [facility] mg/dL [facility] LABORATORY Comment: Supplemental ranges: <140 mg/dL before meals <180 mg/dL all other times of the day Specimen Anatomical Collection Method Collection Time Receive d Time (Source) Location / / Volume Laterality Blood specimen 08/09/2017 4:28 AM 018 4:28 (specimen) EST AM EST Yonathan Smith MD POINT OF CARE TEST ORDERABLE S Performing Organization Address City/State/[place] [address] ABORH Recheck Status (08/09/2017 1:10 AM EST) [facility] Method Time Signature ABORH Type Completed [facility] LABORATORY Specimen Anatomical Collection Method Collection Time Receive d Time (Source) Location / / Volume Laterality Blood specimen 08/09/2017 1:10 AM 018 1:35 (specimen) EST AM EST Resulting Agency Comment Spec In Lab Yonathan Smith MD BLOOD BANK ORDERABLES Performing Organization Address City/State/[place] [address] Antibody screen (08/09/2017 1:10 AM EST) [facility] Method [place] Signature Ab Screen Negative [facility] LABORATORY Expires at 08/12/2017 [facility] [id number] on: [facility] LABORATORY Specimen Anatomical Collection Method Collection Time Receive d Time (Source) Location / / Volume Laterality Blood specimen 08/09/2017 1:10 AM 018 1:35 (specimen) EST AM EST Resulting Agency Comment Spec In Lab Yonathan Smith MD BLOOD BANK ORDERABLES Performing Organization Address City/State/[place] [address] ABO/Rh Typing (08/09/2017 1:10 [...] Address City/State/[place] [address] (ABNORMAL) APTT (08/09/2017 1:10 AM EST) P athologist Signature PTT 86 (H) 25 - 35 sec [facility] LABORATORY Comment: The recommended therapeutic range for fu ll dose, unfractionated heparin at [facility] [place] is 80 [...] Organization Address City/State/ZIP [place] [address] (ABNORMAL) Differential, Automated (08/09/2017 1:10 AM EST) [facility] Method Time Signature Neutrophils % 76.2 % [facility] LABORATORY Neutr Abs (ANC) 8.59 (H) 1.70 - [facility] 6.10 [facility] x10(3)/[facility] LABORATORY Lymphocytes % 11.0 % [facility] LABORATORY Lymphocytes Abs 1.2 0.9 - 3.2 [facility] x10(3)/[facility] LABORATORY Monocytes % 8.4 % [facility] LABORATORY Monocyte Abs 1.0 (H) 0.3 - 0.9 [facility] x10(3)/[facility] LABORATORY Eosinophils % 3.5 % [facility] LABORATORY Eosinophils Abs 0.4 0.0 - 0.4 [facility] x10(3)/[facility] LABORATORY Basophils % 0.5 % [facility] LABORATORY Basophils Abs 0.1 0.0 - 0.1 [facility] x10(3)/[facility] LABORATORY Immature Gran % 0.40 [...] Organization Address City/State/Z[place] [address] (ABNORMAL) Hemogram (08/09/2017 1:10 AM EST) Analysis Performed At Patho logist Time Signature WBC 11.3 (H) 4.0 - 9.5 [facility] x10(3)/[facility] LABORATORY RBC 3.47 (L) 4.58 - [facility] 5.54 [facility] x10(6)/[facility] LABORATORY Hemoglobin 10.0 (L) 13.7 - [facility] 16.5 gm/dL [facility] LABORATORY Hematocrit 31.9 (L) 40.5 - [facility] 48.5 % [facility] LABORATORY MCV 91.9 82.9 - [facility] 93.1 [facility] LABORATORY MCH 28.8 27.5 - [facility] 32.1 pg [facility] LABORATORY MCHC 31.3 (L) 32.0 - [facility] 35.7 gm/dL [facility] LABORATORY Platelets 234 145 - 357 [facility] x10(3)/[facility] LABORATORY RDWSD 54.0 (H) 36.0 - [facility] SU 45.0 [facility] LABORATORY RDWCV 16.2 (H) 11.4 - [facility] SU 13.8 % [facility] LABORATORY MPV 8.7 7.6 - 12.9 [facility] LABORATORY nRBC % Auto 0.0 % [facility] LABORATORY nRBC Abs Auto 0.000 0.000 - [facility] SU 0.000 [facility] x10(3)/[facility] LABORATORY Specimen Anatomical Collection Method Collection Time Receive d Time (Source) Location / / Volume Laterality Blood specimen 08/09/2017 1:10 AM 018 1:19 (specimen) EST AM EST Resulting Agency Comment Spec In Lab Yonathan Smith MD HEMATOLOGY ORDERABLES Performing Organization Address City/[facility]/[place] [address] (ABNORMAL) Prothrombin Time (08/09/2017 [...] City/[facility]/[place] [address] (ABNORMAL) Basic Metabolic Panel (non-fasting) (08/09/2017 1:10 AM EST) P athologist Signature Glucose Lvl 108 65 - 199 [facility] mg/dL [facility] LABORATORY Comment: Diabetes: >=200 mg/dL plus symp toms BUN 34 (H) 10 - 20 mg/dL [facility] LABORATORY Creatinine 1.54 (H) 0.80 - 1.50 mg/dL [facility] CENTER LABORATORY Estimated GFR 45 (L) >=60 [facility] LABORATORY Comment: The reported eGFR should be multiplied b y 1.2 for patients. The MDRD is not an appropriate measure o f renal function for patients with body mass extremes or in patients with acute kidney failure. http://[employer]/DHnkdep http://[employer]/DHMCnkf Specimen Anatomical Collection Method Collection Time Receive d Time (Source) Location / / Volume Laterality Blood specimen 08/09/2017 1:10 AM 018 1:19 (specimen) EST AM EST Resulting Agency Comment Spec In Lab Yonathan Smith MD CHEMISTRY ORDERABLES Performing Organization Address City/State/ZIP Code Phon e Number [address] POCT Glucose (08/09/2017 12:05 AM EST) athologist Signature POC Glucose 128 65 - 199 [facility] mg/dL [facility] LABORATORY Comment: Supplemental ranges: <140 mg/dL before meals <180 mg/dL all other times of the day Specimen Anatomical Collection Method Collection Time Receive d Time (Source) Location / / Volume Laterality Blood specimen 08/09/2017 12:05 8 (specimen) AM EST 12:05 AM EST Yonathan Smith MD POINT OF CARE TEST ORDERABLE S Performing Organization Address City/[facility]/[place] [address] (ABNORMAL) POCT Glucose (08/08/2017 7:36 PM EST) athologist Signature POC Glucose 215 (H) 65 - 199 [facility] mg/dL [facility] LABORATORY Comment: Supplemental ranges: <140 mg/dL before meals <180 mg/dL all other times of the day Specimen Anatomical Collection Method Collection Time Receive d Time (Source) Location / / Volume Laterality Blood specimen 08/08/2017 7:36 PM 018 7:36 (specimen) EST PM EST Yonathan Smith MD POINT OF CARE TEST ORDERABLE S Performing Organization Address City/State/[place] [address] (ABNORMAL) POCT Glucose (08/08/2017 6:23 PM EST) P athologist Signature POC Glucose 216 (H) 65 - 199 [facility] mg/dL [facility] LABORATORY Comment: Supplemental ranges: <140 mg/dL before meals <180 mg/dL all other times of the day Specimen Anatomical Collection Method Collection Time Receive d Time (Source) Location / / Volume Laterality Blood specimen 08/08/2017 6:23 PM 018 6:23 (specimen) EST PM EST Yonathan Smith MD POINT OF CARE TEST ORDERABLE S Performing Organization Address City/[facility]/[place] [address] (ABNORMAL) APTT (08/08/2017 6:00 PM EST) P athologist Signature PTT 97 (H) 25 - 35 sec [facility] LABORATORY Comment: The recommended therapeutic range for fu ll dose, unfractionated heparin at [facility] [place] is 80 [...] City/[facility]/[place] [address] POCT Glucose (08/08/2017 4:42 PM EST) athologist Signature POC Glucose 78 65 - 199 [facility] mg[facility]dL [facility] LABORATORY Comment: Supplemental ranges: <140 mg/dL before meals <180 mg/dL all other times of the day Specimen Anatomical Collection Method Collection Time Receive d Time (Source) Location / / Volume Laterality Blood specimen 08/08/2017 4:42 PM 018 4:42 (specimen) EST PM EST Yonathan Smith MD POINT OF CARE TEST ORDERABLE S Performing Organization Address City/State/[place] [address] (ABNORMAL) POCT Glucose (08/08/2017 4:01 PM EST) athologist Signature POC Glucose 58 (L) 65 - 199 [facility] mg/dL [facility] LABORATORY Comment: Supplemental ranges: <140 mg/dL before meals <180 mg/dL all other times of the day Specimen Anatomical Collection Method Collection Time Receive d Time (Source) Location / / Volume Laterality Blood specimen 08/08/2017 4:01 PM 018 4:01 (specimen) EST PM EST Yonathan Smith MD POINT OF CARE TEST ORDERABLE S Performing Organization Address City/State/[place] [address] POCT Glucose (08/08/2017 11:51 AM EST) athologist Signature POC Glucose 90 65 - 199 [facility] mg/dL [facility] LABORATORY Comment: Supplemental ranges: <140 mg/dL before meals <180 mg/dL all other times of the day Specimen Anatomical Collection Method Collection Time Receive d Time (Source) Location / / Volume Laterality Blood specimen 08/08/2017 11:51 8 (specimen) AM EST 11:51 AM EST Yonathan Smith MD POINT OF CARE TEST ORDERABLE S Performing Organization Address City/State/[place] [address] (ABNORMAL) APTT (08/08/2017 10:27 AM EST) athologist Signature PTT 64 (H) 25 - 35 sec [facility] LABORATORY Comment: The recommended therapeutic range for fu ll dose, unfractionated [place] [facility] [place] [...] Address City/State/ZIP Code Phon e Number [address] POCT Glucose (08/08/2017 8:02 AM EST) athologist Signature POC Glucose 178 65 - 199 [facility] mg/dL [facility] LABORATORY Comment: Supplemental ranges: <140 mg/dL before meals <180 mg/dL all other times of the day Specimen Anatomical Collection Method Collection Time Receive d Time (Source) Location / / Volume Laterality Blood specimen 08/08/2017 8:02 AM 018 8:02 (specimen) EST AM EST Yonathan Smith MD POINT OF CARE TEST ORDERABLE S Performing Organization Address City/[facility]/[place] [address] (ABNORMAL) APTT (08/08/2017 4:51 AM EST) athologist Signature PTT >160 25 - 35 [facility] (Critical) sec [facility] LABORATORY Comment: Called by: HOWARD, Read back by: Melba Jaramillo, Date/Time:08/08/17 05:43. The recommended therapeutic range for fu ll dose, unfractionated heparin [place] [facility] [place] 80 [...] Organization Address City/State/ZIP [place] [address] (ABNORMAL) Differential, Automated (08/08/2017 4:51 AM EST) [facility] gist Method Time Signature Neutrophils % 77.9 % [facility] LABORATORY Neutr Abs (ANC) 8.17 (H) 1.70 - [facility] 6.10 [facility] x10(3)/[facility] LABORATORY Lymphocytes % 10.3 % [facility] LABORATORY Lymphocytes Abs 1.1 0.9 - 3.2 [facility] x10(3)/[facility] LABORATORY Monocytes % 7.0 % [facility] LABORATORY Monocyte Abs 0.7 0.3 - 0.9 [facility] x10(3)/[facility] LABORATORY Eosinophils % 3.6 % [facility] LABORATORY Eosinophils Abs 0.4 0.0 - 0.4 [facility] x10(3)/[facility] LABORATORY Basophils % 0.5 % [facility] LABORATORY Basophils Abs 0.0 0.0 - 0.1 [facility] x10(3)/[facility] LABORATORY Immature Gran % 0.70 % [facility] [...] Address City/State/[place] [address] (ABNORMAL) Hemogram (08/08/2017 4:51 AM EST) Analysis Performed At Patho logist Time Signature WBC 10.5 (H) 4.0 - 9.5 [facility] LABORATORY RBC 3.27 (L) 4.58 - [facility] 5.54 [facility] x10(6)/[facility] LABORATORY Hemoglobin 9.3 (L) 13.7 - [facility] 16.5 gm/dL [facility] LABORATORY Hematocrit 30.3 (L) 40.5 - [facility] 48.5 % [facility] LABORATORY MCV 92.7 82.9 - [facility] 93.1 [facility] LABORATORY MCH 28.4 27.5 - [facility] 32.1 pg [facility] LABORATORY MCHC 30.7 (L) 32.0 - [facility] 35.7 gm/dL [facility] LABORATORY Platelets 252 145 - 357 [facility] x10(3)/[facility] LABORATORY RDWSD 54.6 (H) 36.0 - [facility] 45.0 [facility] LABORATORY RDWCV 16.2 (H) 11.4 - [facility] 13.8 % [facility] LABORATORY MPV 9.1 7.6 - 12.9 [facility] LABORATORY nRBC % Auto 0.0 % [facility] LABORATORY nRBC Abs Auto 0.000 0.000 - [facility] 0.000 [facility] x10(3)/[facility] LABORATORY Specimen Anatomical Collection Method Collection Time Receive d Time (Source) Location / / Volume Laterality Blood specimen 08/08/2017 4:51 AM 018 5:14 (specimen) EST AM EST Resulting Agency Comment Spec In Lab Yonathan Smith MD HEMATOLOGY ORDERABLES Performing Organization Address City/State/[place] [address] (ABNORMAL) Prothrombin Time (08/08/2017 [...] Organization Address City/State/ZIP [place] [address] (ABNORMAL) Basic Metabolic Panel (non-fasting) (08/08/2017 4:51 AM EST) athologist Signature Glucose Lvl 229 (H) 65 - 199 [facility] mg/dL [facility] LABORATORY Comment: Diabetes: >=200 mg/dL plus symp toms BUN 35 (H) 10 - 20 mg/dL [facility] LABORATORY Creatinine 1.57 (H) 0.80 - 1.50 mg/dL [facility] [...] - 15 mmol/L [facility] LABORATORY Calcium 7.9 (L) 8.5 - 10.5 mg/dL [facility] LABORATORY Estimated GFR 44 (L) >=60 [facility] LABORATORY Comment: The reported eGFR should be multiplied b y 1.2 for patients. The MDRD is not an appropriate measure o f renal function for patients with body mass extremes or in patients with acute kidney failure. http://[employer]/DHnkdep http://[employer]/DHMCnkf Specimen Anatomical Collection Method Collection Time Receive d Time (Source) Location / / Volume Laterality Blood specimen 08/08/2017 4:51 AM 018 5:14 (specimen) EST AM EST Resulting Agency Comment Spec In Lab Yonathan Smith MD CHEMISTRY ORDERABLES Performing Organization Address City/[facility]/ZIP Code Phon e Number [address] POCT Glucose (08/08/2017 4:20 AM EST) athologist Signature POC Glucose 193 65 - 199 [facility] mg/dL [facility] LABORATORY Comment: Supplemental ranges: <140 mg/dL before meals <180 mg/dL all other times of the day Specimen Anatomical Collection Method Collection Time Receive d Time (Source) Location / / Volume Laterality Blood specimen 08/08/2017 4:20 AM 018 4:20 (specimen) EST AM EST Yonathan Smith MD POINT OF CARE TEST ORDERABLE S Performing Organization Address City/State/ZIP Code Phon e Number [address] POCT Glucose (08/07/2017 11:11 PM EST) athologist Signature POC Glucose 124 65 - 199 [facility]dL [facility] LAB[facility]ORY Comment: Supplemental ranges: <140 mg/dL before meals <180 mg/dL all other times of the day Specimen Anatomical Collection Method Collection Time Receive d Time (Source) Location / / Volume Laterality Blood specimen 08/07/2017 11:11 8 (specimen) PM EST 11:11 PM EST Yonathan Smith MD POINT OF CARE TEST ORDERABLE S Performing Organization Address City/[facility]/[place] [address] (ABNORMAL) APTT (08/07/2017 10:18 PM EST) athologist Signature PTT 114 (H) 25 - 35 sec [facility] LABORATORY Comment: The recommended therapeutic range for fu ll dose, unfractionated heparin at [facility] [place] 80 [...] City/[facility]/[place] [address] POCT Glucose (08/07/2017 8:10 PM EST) athologist Signature POC Glucose 140 65 - 199 [facility] mg/dL [facility] LABORATORY Comment: Supplemental ranges: <140 mg/dL before meals <180 mg/dL all other times of the day Specimen Anatomical Collection Method Collection Time Receive d Time (Source) Location / / Volume Laterality Blood specimen 08/07/2017 8:10 PM 018 8:10 (specimen) EST PM EST Yonathan Smith MD POINT OF CARE TEST ORDERABLE S Performing Organization Address City/[facility]/[place] [address] POCT Glucose (08/07/2017 5:27 PM EST) athologist Signature POC Glucose 187 65 - 199 [facility] mg/dL [facility] LAB[facility]ORY Comment: Supplemental ranges: <140 mg/dL before meals <180 mg/dL all other times of the day Specimen Anatomical Collection Method Collection Time Receive d Time (Source) Location / / Volume Laterality Blood specimen 08/07/2017 5:27 PM 018 5:27 (specimen) EST PM EST Yonathan Smith MD POINT OF CARE TEST ORDERABLE S Performing Organization Address City/[facility]/[place] [address] POCT Glucose (08/07/2017 3:29 PM EST) athologist Signature POC Glucose 86 65 - 199 [facility] LAB[facility]ORY Comment: Supplemental ranges: <140 mg/dL before meals <180 mg/dL all other times of the day Specimen Anatomical Collection Method Collection Time Receive d Time (Source) Location / / Volume Laterality Blood specimen 08/07/2017 3:29 PM 018 3:29 (specimen) EST PM EST Yonathan Smith MD POINT OF CARE TEST ORDERABLE S Performing Organization Address [facility]/ZIP [facility] [place] [address] (ABNORMAL) APTT (08/07/2017 2:50 PM EST) athologist Signature PTT 60 (H) 25 - 35 sec [facility] LABORATORY Comment: The recommended therapeutic range for fu ll dose, unfractionated heparin at [facility] [place] is 80 [...] ORDERABLES Performing Organization Address City/[facility]/ZIP [facility] Phon e Number [address] (ABNORMAL) POCT Glucose (08/07/2017 2:23 PM EST) athologist Signature POC Glucose 55 (L) 65 - 199 [facility] mg/dL [facility] LABORATORY Comment: Supplemental ranges: <140 mg/dL before meals <180 mg/dL all other times of the day Specimen Anatomical Collection Method Collection Time Receive d Time (Source) Location / / Volume Laterality Blood specimen 08/07/2017 2:23 PM 018 2:23 (specimen) EST PM EST Yonathan Smith MD POINT OF CARE TEST ORDERABLE S Performing Organization Address City/State/ZIP Code Phon e Number [address] POCT Glucose (08/07/2017 12:08 PM EST) P athologist Signature POC Glucose 77 65 - 199 [facility] mg/dL [facility] LABORATORY Comment: Supplemental ranges: <140 mg/dL before meals <180 mg/dL all other times of the day Specimen Anatomical Collection Method Collection Time Receive d Time (Source) Location / / Volume Laterality Blood specimen 08/07/2017 12:08 8 (specimen) PM EST 12:08 PM EST Yonathan Smith MD POINT OF CARE TEST ORDERABLE S Performing Organization Address City/State/ZIP Code Phon e Number [address] (ABNORMAL) Differential, Automated (08/07/2017 7:30 AM EST) Patholo gist Method Time Signature Neutrophils % 73.8 % [facility] LABORATORY Neutr Abs (ANC) 7.17 (H) 1.70 - [facility] 6.10 [facility] x10(3)/[facility] LABORATORY Lymphocytes % 12.2 % [facility] LABORATORY Lymphocytes Abs 1.2 0.9 - 3.2 [facility] x10(3)/[facility] LABORATORY Monocytes % 9.0 % [facility] LABORATORY Monocyte Abs 0.9 0.3 - 0.9 [facility] x10(3)/[facility] LABORATORY Eosinophils % 3.9 % [facility] LABORATORY Eosinophils Abs 0.4 0.0 - 0.4 [facility] x10(3)/[facility] LABORATORY Basophils % 0.6 % [facility] LABORATORY Basophils Abs 0.1 0.0 - 0.1 [facility] x10(3)/[facility] LABORATORY Immature Gran % 0.50 [...] Organization Address City/State/ZIP [place] [address] (ABNORMAL) Hemogram (08/07/2017 7:30 AM EST) Analysis Performed At Patho logist Time Signature WBC 9.7 (H) 4.0 - 9.5 [facility] x10(3)/[facility] LABORATORY RBC 3.54 (L) 4.58 - [facility] 5.54 [facility] x10(6)/[facility] LABORATORY Hemoglobin 9.9 (L) 13.7 - [facility] 16.[facility] gm/dL [facility] LABORATORY Hematocrit 32.3 (L) 40.5 - [facility] 48.5 % [facility] LABORATORY MCV 91.2 82.9 - [facility] 93.1 [facility] LABORATORY MCH 28.0 27.5 - [facility] 32.1 pg [facility] LABORATORY MCHC 30.7 (L) 32.0 - [facility] 35.7 gm/dL [facility] LABORATORY Platelets 312 145 - 357 [facility] x10(3)/[facility] LABORATORY RDWSD 53.2 (H) 36.0 - [facility] 45.0 [facility] LABORATORY RDWCV 16.0 (H) 11.4 - [facility] 13.8 % [facility] LABORATORY MPV 8.9 7.6 - 12.9 [facility] LABORATORY nRBC % Auto 0.0 % [facility] LABORATORY nRBC Abs Auto 0.000 0.000 - [facility] 0.000 [facility] x10(3)/[facility] LABORATORY Specimen Anatomical Collection Method Collection Time Receive d Time (Source) Location / / Volume Laterality Blood specimen 08/07/2017 7:30 AM 018 7:45 (specimen) EST AM EST Resulting Agency Comment Spec In Lab Yonathan Smith MD HEMATOLOGY ORDERABLES Performing Organization Address City/State/ZIP [place] [address] (ABNORMAL) Basic Metabolic Panel (non-fasting) (08/07/2017 7:30 AM EST) P athologist Signature Glucose Lvl 80 65 - 199 [facility] mg/dL [facility] LABORATORY Comment: Diabetes: >=200 mg/dL plus symp toms BUN 31 (H) 10 - 20 mg/dL [facility] LABORATORY Creatinine 1.22 0.80 - 1.50 mg/dL [facility] [...] CENTER LABORATORY Estimated GFR 59 (L) >=60 [facility] LABORATORY Comment: The reported eGFR should be multiplied b y 1.2 for patients. The MDRD is not an appropriate measure o f renal function for patients with body mass extremes or in patients with acute kidney failure. http://[employer]/DHnkdep http://[employer]/DHMCnkf Specimen Anatomical Collection Method Collection Time Receive d Time (Source) Location / / Volume Laterality Blood specimen 08/07/2017 7:30 AM 018 7:45 (specimen) EST AM EST Resulting Agency Comment Spec In Lab Yonathan Smith MD CHEMISTRY ORDERABLES Performing Organization Address City/[facility] Phon e Number [address] POCT Glucose (08/07/2017 7:27 AM EST) athologist Signature POC Glucose 81 65 - 199 [facility] mg/dL [facility] LABORATORY Comment: Supplemental ranges: <140 mg/dL before meals <180 mg/dL all other times of the day Specimen Anatomical Collection Method Collection Time Receive d Time (Source) Location / / Volume Laterality Blood specimen 08/07/2017 7:27 AM 018 7:27 (specimen) EST AM EST Yonathan Smith MD POINT OF CARE TEST ORDERABLE S Performing Organization Address [facility] Phon e Number [address] APTT (08/07/2017 7:04 AM EST) athologist Signature PTT 34 25 - 35 sec [facility] LABORATORY Comment: The recommended therapeutic range for fu ll dose, unfractionated heparin at [facility] [place] is 80 [...] City/[facility]/[place] [address] (ABNORMAL) Prothrombin Time (08/07/2017 [...] Address City/State/[place] [address] POCT Glucose (08/07/2017 4:03 AM EST) athologist Signature POC Glucose 93 65 - 199 [facility]/dL [facility] LABORATORY Comment: Supplemental ranges: <140 mg/dL before meals <180 mg/dL all other times of the day Specimen Anatomical Collection Method Collection Time Receive d Time (Source) Location / / Volume Laterality Blood specimen 08/07/2017 4:03 AM 018 4:03 (specimen) EST AM EST Yonathan Smith MD POINT OF CARE TEST ORDERABLE S Performing Organization Address City/State/[place] [address] POCT Glucose (08/07/2017 12:04 AM EST) athologist Signature POC Glucose 107 65 - 199 [facility] mg/dL [facility] LABORATORY Comment: Supplemental ranges: <140 mg/dL before meals <180 mg/dL all other times of the day Specimen Anatomical Collection Method Collection Time Receive d Time (Source) Location / / Volume Laterality Blood specimen 08/07/2017 12:04 8 (specimen) AM EST 12:04 AM EST Yonathan Smith MD POINT OF CARE TEST ORDERABLE S Performing Organization Address City/State/ZIP Code Phon e Number [address] POCT Glucose (08/06/2017 7:56 PM EST) P athologist Signature POC Glucose 178 65 - 199 [facility] mg/dL [facility] LABORATORY Comment: Supplemental ranges: <140 mg/dL before meals <180 mg/dL all other times of the day Specimen Anatomical Collection Method Collection Time Receive d Time (Source) Location / / Volume Laterality Blood specimen 08/06/2017 7:56 PM 018 7:56 (specimen) EST PM EST Yonathan Smith MD POINT OF CARE TEST ORDERABLE S Performing Organization Address City/State/ZIP Code Phon e Number [address] [id number] (08/06/2017 2:32 PM EST) Component Value Ref Test Analysis Performed At Patholo gist Range Method Time Signature VB Text Department: Vascular Surgery Lab VASCUBASE Report Patient: [id number] (GREGORY HOANG) CPT: [id number] ICD10: I99.8 Referring Physician: YONATHAN SMITH ?? [...] Provider: Chiquis Mcgrath RN)[phone] (Given - Provider: Cihquis Mcgrath RN) 0630 (Given - Provider: Mira [...] 0454 (Given - P rovider: Henrique Marks RN)0860 (Given - Provider: Chiquis Mcgrath RN)1135 (Given [...]
Routine documented in this encounter Care Teams Logistics Analytics Manager Relationship Specialty Start Date End Date Lovely Vicente MD PCP - General 04/16/[address] [place] [address] [address] [place] [address] documented as of this encounter
--- OUTSIDE RECORDS SUMMARY | 2022-04-13 08:11 | XMS_ITS | Encounter Summary ---
:1945 Author Organization [facility] [place] [place] [address] Care Team Providers Name Role Phone Lovely Vicente MD Primary Care Provider Reason for Visit Auth/Cert Specialty Diagnoses / Procedures Referred By Contact Refer red To Contact Diagnoses Critical lower limb ischemia CELLULITIS RT FOOT Procedures EMERGENCY Referral ID Status Reason Start Date Expiration Date Visits Requ ested Visits Authorized [id number] 1 1 Encounter Details Date Type Department Care Team Description 08/11/2017 Surgery Main Operating Room Yonathan Smith (M SURG) DRESSING CHANGE Barbara Ocampo MD (FOR OTHER THAN IVAN) [facility] UNDER ANES. (WRVU 0.86) 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 Patient [...] Dorsalis Pedis (Ankle) Artery ?132 ? 0.94 ??Navarro-Biphasic ? Posterior Tibial (Ankle) Artery ??154 ? 1.10 ??Navarro-Biphasic ? Fourth Toe ? 67 ?0.48 ?? [...] the foot. Discharge Conditions/Prognosis: Good Discharge to: [facility] Rehab Discharge Medications: Your Medications [...] For any problems or questions please call [phone] ZELDA Smith, geneticist Nurse Clinician For issues on weeknights after 5pm and weekends please call [phone] and ask for the Vascular Fellow onion tier. General Instructions None Future Appointments and Orders Future Appointments Provider Department Dept Phone 08/26/2017 4:00 PM Aurelia Rivera PA Vascular Surgery at [place] [phone] 09/07/2017 3:00 PM LAB, THREE L Lab 3L [facility] [phone] 09/07/2017 4:00 PM Luz Prescott MD Endocrinology at [place] [phone] 09/09/2017 8:00 AM Barbra Soares APRN Pain Management at [place] [phone] Please bring a list of your current [...] For any problems or questions please call [phone] ZELDA Smith, geneticist Nurse Clinician For issues on weeknights after 5pm and weekends please call [phone] and ask for the Vascular Fellow onion tier. documented in this encounter Medications at Time [...] Discharge Note Patient Destination: [facility] ([facility]) [address] [place] [id number] Transportation: with (at bedside) Time of Discharge: by 12 noon Level of Care: swing Patient Aware: yes Family Notified: yes Md to call report to: Yissel Quintero MANAGER [employer]OL already called RN to call report to: [phone] Shirin Wolf Office of Care Management Pager [phone] Shirin Wagner RN - 08/16/2017 10:50 AM EST [facility] has offered pt swing bed. Pt and accept bed. will transport via car. [employer]NAGER [employer] Yissel Quintero aware; d/c paperwork will be completed by 12 noon. [facility] requests pt arrival by 1400 today; MANAGER [employer], RN, and family aware. MANAGER [employer] called [facility] and was told that they prefer pt to arrive with wound vac dressing applied but clamped. MANAGER [employer] applied new wound vac dressing. RN has [facility] number to call report. PASSR completed; [employer]NAGER [employer] paged to request provider signature in highlighted space. Indigo [facility] notified via email that home wound vac now cancelled; [facility] has picked up from room and order cancelled. Packet started and provided to refinery operator helper cracking unit. Medicare important message explained to patient, patient signed. Copy provided to patient and signature page to OCM for inclusion in pt EMR. Radha Georges - 08/16/2017 10:34 AM EST Office of Care Management/Director Of Technology Patient Name: Gregory Hoang : 1945 Patient has been offered a swing bed at [facility]. The patient will be transported by private transportation. No MD to MD report necessary Please call Nursing Report to [phone], ask for ecclesiastical worker. Info to accompany patient: Narcotic Prescriptions Copies of Medication Administration Records and IV sheets for past 10 days. Plan: Director Of Technology will be available to the patient and Founder And Ceo-RN and/or Ambulance Paramedic for further assistance. Patient will be discharged to: [facility] [address] [place] [address] [id number] Radha Powers, Director Of Technology Mira Black, VAMSI - 08/15/2017 10:05 PM EST [address] Flores to ask if he wanted to hold metoprolol dose. BP 95/58. OK to hold this dose Courtney Brito - 08/15/2017 3:26 PM EST Office of Care Management(OCM)/Director Of Technology(RS)/ D/C Planning re : Patient is medically ready for d/c today. RS has been in contact with [facility] to see if they could offer a bed. [facility] is still reviewing the case and need their MD to review chart prior to accepting or declining. OCM team needs to check in with [place] tomorrow to check on status. 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 Await recommendations from PT. Covering pager #[phone]. 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 Second Baller Kaitlin Saha, RN Pager #[phone] Payam Rosales - 08/13/2017 2:37 PM EST Fire Warden Encounter Note Patient Name: Gregory Hoang : [id number] MR#: [id number] Admit Date: 08/06/2017 1:41 PM Hospital Day 7 days Narrative: Visited to introduce and assess acceptance of Fire Warden services. Pt was awake, alert, oriented and in chair and family was there. Assessment:Patient coping positively with stresses of illness/hospitalization at this time. Pt says that he is hoping to get better and his family was there. Pt says that he has family care and supportand taking one day at time. Intervention and Outcome: Provided emotional support and encouraging presence. 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 A letter describing our affiliations was reviewed with them and theywere educated about their right to choose where referrals are placed. Patient requests referral to [facility]. PHONE: [phone] FAX: [phone]. And Home NPWT (Negative Pressure Wound Therapy) aka wound vac device made available to pt. Serial # confirmed. Reviewed [facility] Proof of Delivery/Assignment of Benefits Statement(POD/AOB) Form w patient or authorized agent signing on behalf of patient. Copy of POD/AOB provided to pt and other copy faxed to [employer] @ fax# [phone] Expected date of discharge: 08/12/2017. 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 Heparin gtt continues to run. Pt a/ox4. [...] : 1945 AGE 72 y.o. 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 Unsuccessful draw attempt, another hopper operator will come [facility] to collect blood for PTT test. 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 Vascular resident onion tier and will forward result to the team prior to rounds. Melba Cruz RN - 08/08/2017 4:06 AM EST Fall Event Note Gregory Hoang [id number] 08/08/2017 Time of Fall: 0400 Was the [...] - 08/07/2017 4:32 PM EST [facility] staff: Patient was seen and examined [...] and foot dressed and wrapped by Dr. Mayroga. 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 Patient [...] left blue toes with CTA showing R BUILDING CONSTRUCTION SUPERVISOR pseudoaneurysm (now thrombosed) and occluded ATs bilaterally. [...] 2.5x80 5. Completion RLE angiogram 6. L BUILDING CONSTRUCTION SUPERVISOR angiogram 7. 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 - L BUILDING CONSTRUCTION SUPERVISOR angriogram demonstrated: High femoral bifurcation over the proximal half of the femoral head. L BUILDING CONSTRUCTION SUPERVISOR access in the distal L BUILDING CONSTRUCTION SUPERVISOR. - Closure device: Mynx Technical Procedure: The [...] for a 45cm 5F Destination. V18 and Ceres and QuickCross catheters were used to select [...] 5F. A stationed picture of the L BUILDING CONSTRUCTION SUPERVISOR was performed as the patient was noted to have a very high bifurcation. Access appeared in the distal R BUILDING CONSTRUCTION SUPERVISOR. Closure and sheath removal was performed with [...] PM EST 1440 report called to 5 [place] nurse Tessa AGUSTIN documented in this encounter Miscellaneous Notes Plan of Care - Dory Truong RN - 08/16/2017 10:51 AM EST Problem: Patient Care Overview Goal: Plan of Care Review Outcome: Outcome (s) achieved Date Met: 08/16/17 08/14/17 1939 08/16/17 8711 Coping/Psychosocial Plan Of Care Reviewed With -- patient Plan of Care Review Progress improving -- Discussed discharge instructions with pt and pt's spouse. Discharge to [facility]. Goal: Individualization & Mutuality Outcome: [...] sit/sit to supine -- Bed Mobility Goal, Mckean Level independent -- Bed Mobility Goal, Date [...] days -- Transfer Training Goal, Activity Type ihn-cb-nummv/lvjct-ib-orq -- Transfer Train Goal, Mckean Level conditional independence -- Transfer Train Goal, [...] call cabello within reach, Hourly rounding by RN/TASSEL MAKING MACHINE OPERATOR. Bed alarm / Chair alarm. Patient-specific [...] Operative Note Patient Name: Gregory Hoang : [id number] MR#: [id number] Case Date: 08/09/2017 Surgeon: Surgeon(s) and Role: [...] 2.5x80 5. Completion RLE angiogram 6. L BUILDING CONSTRUCTION SUPERVISOR angiogram 7. Mynx closure Precautions/Restrictions: fall, sternal [...] other (see comments) (or swing bed) Pager: [phone] BASSAM ELIAS, PT 08/14/2017 Inpatient Physical Therapy [...] to Achieve by discharge Gait Training Goal, Mckean Level conditional independence;set up required Gait Training [...] these facilities over the weekend except for [facility]. CM spoke with [facility] KANWAL Sandhu RN who said that they do not anticipate any beds over the weekend. Reviewed with patient/ that they need to be aware that patient will need to take the first bed offered at the facilities that they make referrals to. Their choices are: 1- [facility] PHONE: [phone] FAX: [phone] 2- [facility] ([facility]) [address] [place] [address] 3- [facility]) [address] [place] [address] I have discussed Medicare/Private Insurance [...] RS/CM on Wednesday to follow-up. Covering pager #[phone] for today. Plan of Care - Henrique [...] with additional findings of pseudoaneurysm on R BUILDING CONSTRUCTION SUPERVISOR and bilateral anterior tibial artery occlusions. Was [...] an outpatient once discharged. Have patient call [phone] to set up an appointment. Follow-up: Dermatology will sign-off for now. Please do not hesitate to contact us if you have any questions orconcerns. Impression and Recommendations discussed with primary team on 08/13/2017. Karo Henderson MD Resident in Dermatology Section of Dermatology, Department of Surgery [facility] Pager [phone] Patient seen and evaluated with staff Apprentice Cook: Halima Cordero MD Section of Dermatology [facility] Level of Resident Supervision: Direct [...] 2.5x80 5. Completion RLE angiogram 6. L BUILDING CONSTRUCTION SUPERVISOR angiogram 7. Mynx closure Active Non-Hospital Problems [...] home with home health ([facility] PT[facility]OT) Pager: [phone] YASIR TELLO OT 08/12/2017 Occupational Therapy Rehabilitation [...] 2.5x80 5. Completion RLE angiogram 6. L BUILDING CONSTRUCTION SUPERVISOR angiogram 7. Mynx closure Past Medical History: [...] with 24/7 assistance and maximal services) Pager: [phone] NICHOLAS MORA, JESSIE 08/12/2017 Physical Therapy Rehabilitation [...] sit/sit to supine -- Bed Mobility Goal, Mckean Level independent -- Bed Mobility Goal, Outcome Achieved -- goal ongoing Goal: Gait Training Goal Stand Alone Therapy Goal Outcome: Ongoing (Interventions Implemented as Appropriate) 08/11/17 1310 08/12/17 1510 Gait Training Goal Gait Training Goal, Date Established 08/11/17 -- Gait Training Goal, Time to Achieve 5 - 7 days -- Gait Training Goal, Mckean Level conditional independence -- Gait Training Goal, [...] days -- Transfer Training Goal, Activity Type vig-du-isvge/ebrlq-xr-jph -- Transfer Train Goal, Mckean Level conditional independence -- Transfer Training Goal, [...] Operative Note Patient Name: Gregory Hoang : [id number] MR#: [id number] Case Date: 08/11/2017 Surgeon: Surgeon(s) and Role: [...] 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 Completion RLE angiogram 6. L BUILDING CONSTRUCTION SUPERVISOR angiogram 7. Mynx closure He is very [...] to sit/sit to supine Bed Mobility Goal, Mckean Level independent Goal: Gait Training Goal Stand Alone Therapy Goal Outcome: Ongoing (Interventions Implemented as Appropriate) 08/11/17 1310 Gait Training Goal Gait Training Goal, Date Established 08/11/17 Gait Training Goal, Time to Achieve 5 - 7 days Gait Training Goal, Mckean Level conditional independence Gait Training Goal, Assist [...] 7 days Transfer Training Goal, Activity Type cmy-tm-kuztx/pljby-gd-sjr Transfer Train Goal, Mckean Level conditional independence Plan of Care - [...] call cabello within reach, Hourly rounding by RN/TASSEL MAKING MACHINE OPERATOR. Bed alarm / Chair alarm. ? [...] Advance Care Planning: on file Kisha Hoang [facility] [phone] Current Coping/Education/Information Needs: pt and spouse state [...] Health/Prescription Coverage: Primary Insurance: MEDICARE Secondary Insurance: [employer] [place] Prescription Coverage: See above Preferred Pharmacy: [id number] Other: N/A Primary Care Provider: Lovely Vicente MD [phone] Patient/Caregiver Goals of Treatment: Patient plans to return home when medically ready Potential Needs for Transition of Care: Rehab/SNF: N/A Home Health: [facility]. DME: pt has a cane and [...] of care planning. Kaitlin Saha RN Pager: [phone] Plan of Care - Melba Jaramillo RN [...] Overview Goal: Plan of Care Review 08/08/17 4464 Coping/Psychosocial Plan Of Care Reviewed With patient [...] call cabello within reach, Hourly rounding by RN/TASSEL MAKING MACHINE OPERATOR. Bed alarm / Chair alarm. Patient-specific [...] at bedside and MD TEAM Carrying pager [phone] contacted (via Radio page) and notified of [...] Zulma Dolan MD [facility] [place], [place] [address] (Wo rk) 05/28/2022 Laboratory Appointment Lab 05/28/2022 Office Visit Cardiology Zulma Dolan MD [facility] [place] [place] [address] Liz Poole PA [facility] [place] [address] 06/10/2022 Office Visit Dermatology Laura Scherer MD [facility] DR TEJA GR-DERMAT OLOG[place], [place] [address] (Wo rk) documented as [...] 160 65 - 199 [place] mg/dL [facility] Comment: Supplemental ranges: <140 mg/dL before meals <180 mg/dL all other times of the day Specimen Anatomical Collection Method Collection Time Receive d Time (Source) Location / / Volume Laterality Blood specimen 08/16/2017 7:28 AM 018 7:28 (specimen) EST AM EST Yonathan Smith MD POINT OF CARE TEST ORDERABLE S Performing Organization Address City/State/ZIP [place] [address] (ABNORMAL) Differential, Automated (08/16/2017 5:08 AM EST) [facility] Method Time Signature Neutrophils % 73.9 % [facility] Neutr Abs (ANC) 5.37 1.70 - [facility] 6.10 [facility] x10(3)/[facility] LABORATORY Lymphocytes % 10.1 % [facility] Lymphocytes Abs 0.7 (L) 0.9 - 3.2 [facility] x10(3)/[facility] LABORATORY Monocytes % 10.1 % [facility] Monocyte Abs 0.7 0.3 - 0.9 [facility] x10(3)/[facility] LABORATORY Eosinophils % 5.1 % [facility] Eosinophils Abs 0.4 0.0 - 0.4 [facility] x10(3)/[facility] LABORATORY Basophils % 0.4 % [facility] Basophils Abs 0.0 0.0 - 0.1 [facility] x10(3)/[facility] LABORATORY Immature [...] 0.00 - 0.04 x10(3)/[facility] Y [facility] LABORATORY Specimen Anatomical Collection Method Collection Time Receive d Time (Source) Location / / Volume Laterality Blood specimen 08/16/2017 5:08 AM 018 5:20 (specimen) EST AM EST Resulting Agency Comment Spec In Lab Yonathan Smith MD HEMATOLOGY ORDERABLES Performing Organization Address City/State/ZIP Code [place] [address] (ABNORMAL) Hemogram (08/16/2017 5:08 AM EST) Analysis Performed At Patho logist Time Signature WBC 7.3 4.0 - 9.5 [place] x10(3)/[facility] LABORATORY RBC 3.36 (L) 4.58 - [place] 5.54 [facility] x10(6)/[facility] LABORATORY Hemoglobin 9.7 (L) 13.7 - [facility] 16.5 gm/dL [facility] Hematocrit 30.3 (L) 40.5 - [place] 48.5 % [facility] MCV 90.2 82.9 - [facility] RYAN 93.1 [facility] LABORATORY MCH 28.9 27.5 - [place] 32.1 pg [facility] MCHC 32.0 32.0 - [place] 35.7 gm/dL [facility] Platelets 282 145 - 357 [facility] x10(3)/[facility] LABORATORY RDWSD 53.9 (H) 36.0 - [place] 45.0 [facility] LABORATORY RDWCV 16.5 (H) 11.4 - [place] 13.8 % [facility] MPV 9.0 7.6 - 12.9 [place] [facility] LABORATORY nRBC % Auto 0.0 % [facility] LABOR[facility] nRBC Abs Auto 0.000 0.000 - [place] 0.000 [facility] x10(3)/[facility] LABORATORY Specimen Anatomical Collection Method Collection Time Receive d Time (Source) Location / / Volume Laterality Blood specimen 08/16/2017 5:08 AM 018 5:20 (specimen) EST AM EST Resulting Agency Comment Spec In Lab Yonathan Smith MD HEMATOLOGY ORDERABLES Performing Organization Address City/State/ZIP Code Phon e Number [place] [id number] (ABNORMAL) Basic Metabolic Panel (non-fasting) (08/16/2017 5:08 AM EST) P athologist Signature Glucose Lvl 141 65 - 199 [facility] mg/dL [facility] Comment: Diabetes: >=200 mg/dL [...] LABORATORY Calcium 8.7 8.5 - 10.5 mg/dL [facility] Estimated GFR 57 (L) >=60 [facility] Comment: The reported eGFR should be multiplied b y 1.2 for patients. The MDRD is not an appropriate measure o f renal function for patients with body mass extremes or in patients with acute kidney failure. http://Paydiant/DHnkdep http://Paydiant/DHMCnkf Specimen Anatomical Collection Method Collection Time Receive d Time (Source) Location / / Volume Laterality Blood specimen 08/16/2017 5:08 AM 018 5:20 (specimen) EST AM EST Resulting Agency Comment Spec In Lab Yonathan Smith MD CHEMISTRY ORDERABLES Performing Organization Address City/State/ZIP [place] [address] (ABNORMAL) Prothrombin Time (08/16/2017 [...] Smith MD HEMATOLOGY ORDERABLES Performing Organization Address City/[facility]/ZIP Code Phon e Number [address] POCT Glucose (08/16/2017 4:09 AM EST) athologist Signature POC Glucose 147 65 - 199 [facility] mg/dL [facility] Comment: Supplemental ranges: <140 mg/dL before meals <180 mg/dL all other times of the day Specimen Anatomical Collection Method Collection Time Receive d Time (Source) Location / / Volume Laterality Blood specimen 08/16/2017 4:09 AM 018 4:09 (specimen) EST AM EST Yonathan Smith MD POINT OF CARE TEST ORDERABLE S Performing Organization Address City/[facility]/ZIP Code Phon e Number [address] POCT Glucose (08/15/2017 11:56 PM EST) athologist Signature POC Glucose 176 65 - 199 [facility] Comment: Supplemental ranges: <140 mg/dL before meals <180 mg/dL all other times of the day Specimen Anatomical Collection Method Collection Time Receive d Time (Source) Location / / Volume Laterality Blood specimen 08/15/2017 11:56 8 (specimen) PM EST 11:56 PM EST Yonathan Smith MD POINT OF CARE TEST ORDERABLE S Performing Organization Address City/[facility]/ZIP Code Phon e Number [address] POCT Glucose (08/15/2017 8:05 PM EST) athologist Signature POC Glucose 136 65 - 199 [place] mg/dL [facility] Comment: Supplemental ranges: <140 mg/dL before meals <180 mg/dL all other times of the day Specimen Anatomical Collection Method Collection Time Receive d Time (Source) Location / / Volume Laterality Blood specimen 08/15/2017 8:05 PM 018 8:05 (specimen) EST PM EST Yonathan Smith MD POINT OF CARE TEST ORDERABLE S Performing Organization Address City/State/[place] [address] (ABNORMAL) POCT Glucose (08/15/2017 4:50 PM EST) athologist Signature POC Glucose 232 (H) 65 - 199 [facility] mg/dL [facility] [facility] Comment: Supplemental ranges: <140 mg/dL before meals <180 mg/dL all other times of the day Specimen Anatomical Collection Method Collection Time Receive d Time (Source) Location / / Volume Laterality Blood specimen 08/15/2017 4:50 PM 018 4:50 (specimen) EST PM EST Yonathan Smith MD POINT OF CARE TEST ORDERABLE S Performing Organization Address City/State/[place] [address] POCT Glucose (08/15/2017 12:04 PM EST) athologist Signature POC Glucose 135 65 - 199 [place] mg/dL [facility] Comment: Supplemental ranges: <140 mg/dL before meals <180 mg/dL all other times of the day Specimen Anatomical Collection Method Collection Time Receive d Time (Source) Location / / Volume Laterality Blood specimen 08/15/2017 12:04 8 (specimen) PM EST 12:04 PM EST Yonathan Smith MD POINT OF CARE TEST ORDERABLE S Performing Organization Address City/State/[place] [address] POCT Glucose (08/15/2017 7:36 AM EST) P athologist Signature POC Glucose 124 65 - 199 [facility] mg/dL [facility] Comment: Supplemental ranges: <140 mg/dL before meals <180 mg/dL all other times of the day Specimen Anatomical Collection Method Collection Time Receive d Time (Source) Location / / Volume Laterality Blood specimen 08/15/2017 7:36 AM 018 7:36 (specimen) EST AM EST Yonathan Smith MD POINT OF CARE TEST ORDERABLE S Performing Organization Address City/State/ZIP [place] [address] (ABNORMAL) Differential, Automated (08/15/2017 6:22 AM EST) Patholo gist Method Time Signature Neutrophils % 76.1 % [facility] LABORATORY Neutr Abs (ANC) 6.62 (H) 1.70 - [facility] 6.10 [facility] x10(3)/[facility] L LABORATORY Lymphocytes % 9.3 % [facility] LABORATORY Lymphocytes Abs 0.8 (L) 0.9 - 3.2 [facility] x10(3)/[facility] LABORATORY Monocytes % 9.4 % [facility] LABORATORY Monocyte Abs 0.8 0.3 - 0.9 [facility] x10(3)/[facility] LABORATORY Eosinophils % 4.0 % [facility] LABORATORY Eosinophils Abs 0.4 0.0 - 0.4 [facility] x10(3)/[facility] LABORATORY Basophils % 0.6 % [facility] LABORATORY Basophils Abs 0.0 0.0 - 0.1 [facility] x10(3)/[facility] LABORATORY Immature Gran % 0.60 % [facility] [...] Organization Address City/State/ZIP [place] [address] (ABNORMAL) Hemogram (08/15/2017 6:22 AM EST) Analysis Performed At Patho logist Time Signature WBC 8.7 4.0 - 9.5 [facility] x10(3)/[facility] LABORATORY RBC 3.21 (L) 4.58 - [facility] 5.54 [facility] x10(6)/[facility] LABORATORY Hemoglobin 9.1 (L) 13.7 - [facility] 16[facility] gm/dL [facility] LAB[facility]ATORY Hematocrit 29.0 (L) 40.5 - [facility] 48.5 % [facility]ORY MCV 90.3 82.9 - [facility] 93.1 [facility] LABORATORY MCH 28.3 27.5 - [facility] RYAN 32.1 pg [facility] LABORATORY MCHC 31.4 (L) 32.0 - [facility] 35.7 gm/dL [facility] LABORATORY Platelets 254 145 - 357 [facility] x10(3)/[facility] LABORATORY RDWSD 53.9 (H) 36.0 - [facility] RYAN 45.0 [facility] LABORATORY RDWCV 16.3 (H) 11.4 - [facility] RYAN 13.8 % [facility] LABORATORY MPV 8.8 7.6 - 12.9 [facility] LABORATORY nRBC % Auto 0.0 % [facility] LABORATORY nRBC Abs Auto 0.000 0.000 - [place] 0.000 [facility] x10(3)/[facility] LABORATORY Specimen Anatomical Collection Method Collection Time Receive d Time (Source) Location / / Volume Laterality Blood specimen 08/15/2017 6:22 AM 018 6:33 (specimen) EST AM EST Resulting Agency Comment Spec In Lab Yonathan Smith MD HEMATOLOGY ORDERABLES Performing Organization Address City/State/ZIP [place] [address] (ABNORMAL) Basic Metabolic Panel (non-fasting) (08/15/2017 6:22 AM EST) P athologist Signature Glucose Lvl 118 65 - 199 [facility] mg/dL [facility] Comment: Diabetes: >=200 mg/dL [...] [facility] Estimated GFR >60 >=60 [facility] LABORATORY Comment: The reported eGFR should be multiplied b y 1.2 for patients. The MDRD is not an appropriate measure o f renal function for patients with body mass extremes or in patients with acute kidney failure. [email or web address] [email or web address] [email or web address] by [email or web address] Specimen Anatomical Collection Method Collection Time Receive d Time (Source) Location / / Volume Laterality Blood specimen 08/15/2017 6:22 AM 018 6:33 (specimen) EST AM EST Resulting Agency Comment Spec In Lab Yonathan Smith MD CHEMISTRY ORDERABLES Performing Organization Address City/State/[place] [address] (ABNORMAL) Prothrombin Time (08/15/2017 [...] Smith MD HEMATOLOGY ORDERABLES Performing Organization Address City/[facility]/[place] [address] POCT Glucose (08/15/2017 4:33 AM EST) athologist Signature POC Glucose 164 65 - 199 [facility] mg/dL [facility] Comment: Supplemental ranges: <140 mg/dL before meals <180 mg/dL all other times of the day Specimen Anatomical Collection Method Collection Time Receive d Time (Source) Location / / Volume Laterality Blood specimen 08/15/2017 4:33 AM 018 4:33 (specimen) EST AM EST Yonathan Smith MD POINT OF CARE TEST ORDERABLE S Performing Organization Address City/State/[place] [address] POCT Glucose (08/15/2017 12:12 AM EST) athologist Signature POC Glucose 89 65 - 199 [facility] Comment: Supplemental ranges: <140 mg/dL before meals <180 mg/dL all other times of the day Specimen Anatomical Collection Method Collection Time Receive d Time (Source) Location / / Volume Laterality Blood specimen 08/15/2017 12:12 8 (specimen) AM EST 12:12 AM EST Yonathan Smith MD POINT OF CARE TEST ORDERABLE S Performing Organization Address City/State/[place] [address] (ABNORMAL) POCT Glucose (08/14/2017 8:07 PM EST) athologist Signature POC Glucose 204 (H) 65 - 199 [place] [place] mg/dL [facility] Comment: Supplemental ranges: <140 mg/dL before meals <180 mg/dL all other times of the day Specimen Anatomical Collection Method Collection Time Receive d Time (Source) Location / / Volume Laterality Blood specimen 08/14/2017 8:07 PM 018 8:07 (specimen) EST PM EST Yonathan Smith MD POINT OF CARE TEST ORDERABLE S Performing Organization Address City/State/[place] [address] POCT Glucose (08/14/2017 5:11 PM EST) athologist Signature POC Glucose 174 65 - 199 [place] mg/dL [facility] Comment: Supplemental ranges: <140 mg/dL before meals <180 mg/dL all other times of the day Specimen Anatomical Collection Method Collection Time Receive d Time (Source) Location / / Volume Laterality Blood specimen 08/14/2017 5:11 PM 018 5:11 (specimen) EST PM EST Yonathan Smith MD POINT OF CARE TEST ORDERABLE S Performing Organization Address City/State/[place] [address] POCT Glucose (08/14/2017 12:10 PM EST) athologist Signature POC Glucose 141 65 - 199 [place] mg/dL [facility] Comment: Supplemental ranges: <140 mg/dL before meals <180 mg/dL all other times of the day Specimen Anatomical Collection Method Collection Time Receive d Time (Source) Location / / Volume Laterality Blood specimen 08/14/2017 12:10 8 (specimen) PM EST 12:10 PM EST Yonathan Smith MD POINT OF CARE TEST ORDERABLE S Performing Organization Address City/State/[place] [address] POCT Glucose (08/14/2017 8:07 AM EST) P athologist Signature POC Glucose 158 65 - 199 [facility] mg/dL [facility] Comment: Supplemental ranges: <140 mg/dL before meals <180 mg/dL all other times of the day Specimen Anatomical Collection Method Collection Time Receive d Time (Source) Location / / Volume Laterality Blood specimen 08/14/2017 8:07 AM 018 8:07 (specimen) EST AM EST Yonathan Smith MD POINT OF CARE TEST ORDERABLE S Performing Organization Address City/State/[place] [address] (ABNORMAL) Differential, Automated (08/14/2017 4:52 AM EST) Patholo gist Method Time Signature Neutrophils % 78.6 % [facility] LABORATORY Neutr Abs (ANC) 7.70 (H) 1.70 - [facility] 6.10 [facility] x10(3)/[facility] L LABORATORY Lymphocytes % 7.8 % [facility] LABORATORY Lymphocytes Abs 0.8 (L) 0.9 - 3.2 [facility] x10(3)/[facility] LABORATORY Monocytes % 8.8 % [facility] LABORATORY Monocyte Abs 0.9 0.3 - 0.9 [facility] x10(3)/[facility] LABORATORY Eosinophils % 4.0 % [facility] LABORATORY Eosinophils Abs 0.4 0.0 - 0.4 [facility] x10(3)/[facility] LABORATORY Basophils % 0.5 % [facility] LABORATORY Basophils Abs 0.0 0.0 - 0.1 [facility] x10(3)/[facility] LABORATORY Immature Gran % 0.30 % [facility] [...] Melisa Gran Abs 0.03 0.00 - 0.04 x10(3)/[facility] Y [facility] LABORATORY Specimen Anatomical Collection Method Collection Time Receive d Time (Source) Location / / Volume Laterality Blood specimen 08/14/2017 4:52 AM 018 5:08 (specimen) EST AM EST Resulting Agency Comment Spec In Lab Yonathan Smith MD HEMATOLOGY ORDERABLES Performing Organization Address City/State/ZIP [place] [address] (ABNORMAL) Hemogram (08/14/2017 4:52 AM EST) Analysis Performed At Patho logist Time Signature WBC 9.8 (H) 4.0 - 9.5 [facility] x10(3)/[facility] LABORATORY RBC 3.32 (L) 4.58 - [facility] x10(6)/[facility] LABORATORY Hemoglobin 9.5 (L) 13.7 - [facility] 16.[facility] gm/dL [facility] LABORATORY Hematocrit 30.3 (L) 40.5 - [facility] 48.5 % [facility] LABORATORY MCV 91.3 82.9 - [facility] 93.1 [facility] LABORATORY MCH 28.6 27.5 - [facility] RYAN 32.1 pg [facility] LABORATORY MCHC 31.4 (L) 32.0 - [facility] 35.7 gm/dL [facility] LABORATORY Platelets 263 145 - 357 [facility] x10(3)/[facility] LABORATORY RDWSD 54.8 (H) 36.0 - [place] 45.0 [facility] LABORATORY RDWCV 16.5 (H) 11.4 - [facility] 13.8 % [facility] LABORATORY MPV 9.1 7.6 - 12.9 [facility] LABORATORY nRBC % Auto 0.0 % [facility] LABORATORY nRBC Abs Auto 0.000 0.000 - [facility] 0.000 [facility] x10(3)/[facility] LABORATORY Specimen Anatomical Collection Method Collection Time Receive d Time (Source) Location / / Volume Laterality Blood specimen 08/14/2017 4:52 AM 018 5:08 (specimen) EST AM EST Resulting Agency Comment Spec In Lab Yonathan Smith MD HEMATOLOGY ORDERABLES Performing Organization Address City/State/ZIP [place] [address] (ABNORMAL) Prothrombin Time (08/14/2017 [...] Organization Address City/State/ZIP [place] [address] (ABNORMAL) Basic Metabolic Panel (non-fasting) (08/14/2017 4:52 AM EST) P athologist Signature Glucose Lvl 135 65 - 199 [facility] mg/dL [facility] Comment: Diabetes: >=200 mg/dL [...] or in patients with acute kidney failure. [email or web address] [email or web address] Specimen Anatomical Collection Method Collection Time Receive d Time (Source) Location / / Volume Laterality Blood specimen 08/14/2017 4:52 AM 018 5:08 (specimen) EST AM EST Resulting Agency Comment Spec In Lab Yonathan Smith MD CHEMISTRY ORDERABLES Performing Organization Address City/State/ZIP [place] [address] POCT Glucose (08/14/2017 3:56 AM EST) P athologist Signature POC Glucose 135 65 - 199 [facility] mg/dL [facility] Comment: Supplemental ranges: <140 mg/dL before meals <180 mg/dL all other times of the day Specimen Anatomical Collection Method Collection Time Receive d Time (Source) Location / / Volume Laterality Blood specimen 08/14/2017 3:56 AM 018 3:56 (specimen) EST AM EST Yonathan Smith MD POINT OF CARE TEST ORDERABLE S Performing Organization Address City/State/ZIP Code Phon e Number [address] POCT Glucose (08/13/2017 11:13 PM EST) athologist Signature POC Glucose 118 65 - 199 [place] mg/dL [facility] Comment: Supplemental ranges: <140 mg/dL before meals <180 mg/dL all other times of the day Specimen Anatomical Collection Method Collection Time Receive d Time (Source) Location / / Volume Laterality Blood specimen 08/13/2017 11:13 8 (specimen) PM EST 11:13 PM EST Yonathan Smith MD POINT OF CARE TEST ORDERABLE S Performing Organization Address City/[facility]/[place] [address] (ABNORMAL) POCT Glucose (08/13/2017 8:08 PM EST) athologist Signature POC Glucose 204 (H) 65 - 199 [place] [place] mg/dL [facility] Comment: Supplemental ranges: <140 mg/dL before meals <180 mg/dL all other times of the day Specimen Anatomical Collection Method Collection Time Receive d Time (Source) Location / / Volume Laterality Blood specimen 08/13/2017 8:08 PM 018 8:08 (specimen) EST PM EST Yonathan Smith MD POINT OF CARE TEST ORDERABLE S Performing Organization Address City/State/[place] [address] POCT Glucose (08/13/2017 4:02 PM EST) athologist Signature POC Glucose 145 65 - 199 [place] mg/dL [facility] Comment: Supplemental ranges: <140 mg/dL before meals <180 mg/dL all other times of the day Specimen Anatomical Collection Method Collection Time Receive d Time (Source) Location / / Volume Laterality Blood specimen 08/13/2017 4:02 PM 018 4:02 (specimen) EST PM EST Yonathan Smith MD POINT OF CARE TEST ORDERABLE S Performing Organization Address City/State/[place] [address] POCT Glucose (08/13/2017 11:31 AM EST) athologist Signature POC Glucose 179 65 - 199 [facility] Comment: Supplemental ranges: <140 mg/dL before meals <180 mg/dL all other times of the day Specimen Anatomical Collection Method Collection Time Receive d Time (Source) Location / / Volume Laterality Blood specimen 08/13/2017 11:31 8 (specimen) AM EST 11:31 AM EST Yonathan Smith MD POINT OF CARE TEST ORDERABLE S Performing Organization Address City/[facility]/[place] [address] (ABNORMAL) POCT Glucose (08/13/2017 10:16 AM EST) athologist Signature POC Glucose 211 (H) 65 - 199 [facility] Comment: Supplemental ranges: <140 mg/dL before meals <180 mg/dL all other times of the day Specimen Anatomical Collection Method Collection Time Receive d Time (Source) Location / / Volume Laterality Blood specimen 08/13/2017 10:16 8 (specimen) AM EST 10:16 AM EST Yonathan Smith MD POINT OF CARE TEST ORDERABLE S Performing Organization Address City/[facility]/[place] [address] JULIAN, legs, multiple levels (08/13/2017 7:42 AM EST) Component Value Ref Test Analysis Performed At Patholo gist Range Method Time Signature VB Text Department: Vascular Surgery Lab VASCUBASE Report Patient: [id number] (GREGORY HOANG) CPT: 97809 ICD10: I99.8 Referring Physician: YONATHAN SMITH ?? Indications: s/p R 1,2,3 toe amps with red left foot, need n ew baseline Diabetes mellitus: yes ICD10 Diagnosis Code: I99.8 Findings: Right ?Pressure (mm Hg) ?? JULIAN ??Waveform ?TBI ?? Brachial Artery ?138 ? Dorsalis Pedis (Ankle) Arter y ?132 ? 0.94 ??Navarro- Biphasic ? Posterior Tibial (Ankle) Art anila ??154 ? 1.10 ??Navarro-Biphasic ? Fourth Toe ? 67 ? 0.48 [...] POC Glucose 156 65 - 199 [facility] mg/dL [facility] Comment: Supplemental ranges: <140 mg/dL before meals <180 mg/dL all other times of the day Specimen Anatomical Collection Method Collection Time Receive d Time (Source) Location / / Volume Laterality Blood specimen 08/13/2017 7:33 AM 018 7:33 (specimen) EST AM EST Yonathan Smith MD POINT OF CARE TEST ORDERABLE S Performing Organization Address City/State/ZIP Code Phon e Number [place] [id number] [facility] LAB[address]ORY Drive (ABNORMAL) Differential, Automated (08/13/2017 5:33 AM EST) [facility] Method Time Signature Neutrophils % 77.8 % [facility] LABORATORY Neutr Abs (ANC) 7.83 (H) 1.70 - [facility] 6.10 [facility] x10(3)/[facility] L LABORATORY Lymphocytes % 8.4 % [facility] LABORATORY Lymphocytes Abs 0.8 (L) 0.9 - 3.2 [facility] x10(3)/[facility] LABORATORY Monocytes % 8.3 % [facility] LABORATORY Monocyte Abs 0.8 0.3 - 0.9 [facility] x10(3)/[facility] LABORATORY Eosinophils % 4.6 % [facility] LABORATORY Eosinophils Abs 0.5 (H) 0.0 - 0.4 [facility] x10(3)/[facility] LABORATORY Basophils % 0.5 % [facility] LABORATORY Basophils Abs 0.0 0.0 - 0.1 [facility] x10(3)/[facility] LABORATORY Immature Gran % 0.40 % [facility] [...] 0.04 0.00 - 0.04 x10(3)/[facility] LABORATORY Specimen Anatomical Collection Method Collection Time Receive d Time (Source) Location / / Volume Laterality Blood specimen 08/13/2017 5:33 AM 018 6:04 (specimen) EST AM EST Resulting Agency Comment Spec In Lab Yonathan Smith MD HEMATOLOGY ORDERABLES Performing Organization Address City/State/ZIP [place] [address] (ABNORMAL) Hemogram (08/13/2017 5:33 AM EST) Analysis Performed At Patho logist Time Signature WBC 10.1 (H) 4.0 - 9.5 [facility] x10(3)/[facility] LABORATORY RBC 3.21 (L) 4.58 - [facility] 5.54 [facility] x10(6)/[facility] LABORATORY Hemoglobin 9.2 (L) 13.7 - [facility] 16.5 gm/dL [facility] LABORATORY Hematocrit 29.6 (L) 40.5 - [facility] 48.5 % [facility] LABORATORY MCV 92.2 82.9 - [facility] 93.1 [facility] LABORATORY MCH 28.7 27.5 - [facility] LAB[facility]ATORY MCHC 31.1 (L) 32.0 - [facility] 35.7 gm/dL [facility] LABORATORY Platelets 263 145 - 357 [facility] x10(3)/[facility] LABORATORY RDWSD 54.8 (H) 36.0 - [facility] 45.0 [facility] LABORATORY RDWCV 16.4 (H) 11.4 - [facility] 13.8 % [facility] LABORATORY MPV 9.2 7.6 - 12.9 [facility] LABORATORY nRBC % Auto 0.0 % [facility] LABORATORY nRBC Abs Auto 0.000 0.000 - [facility] 0.000 [facility] x10(3)/[facility] LABORATORY Specimen Anatomical Collection Method Collection Time Receive d Time (Source) Location / / Volume Laterality Blood specimen 08/13/2017 5:33 AM 018 6:04 (specimen) EST AM EST Resulting Agency Comment Spec In Lab Yonathan Smith MD HEMATOLOGY ORDERABLES Performing Organization Address City/State/ZIP [place] [address] (ABNORMAL) Prothrombin Time (08/13/2017 [...] Organization Address City/State/ZIP [place] [address] (ABNORMAL) Basic Metabolic Panel (non-fasting) (08/13/2017 5:33 AM EST) athologist Signature Glucose Lvl 126 65 - 199 [facility] mg/dL [facility] LABORATORY Comment: Diabetes: >=200 mg/dL [...] Calcium 7.9 (L) 8.5 - 10.5 mg/dL [facility] LABORATORY Estimated GFR >60 >=60 [facility] LABORATORY Comment: The reported eGFR should be multiplied b y 1.2 for patients. The MDRD is not an appropriate measure o f renal function for patients with body mass extremes or in patients with acute kidney failure. [email or web address] [email or web address] Specimen Anatomical Collection Method Collection Time Receive d Time (Source) Location / / Volume Laterality Blood specimen 08/13/2017 5:33 AM 018 6:04 (specimen) EST AM EST Resulting Agency Comment Spec In Lab Yonathan Smith MD CHEMISTRY ORDERABLES Performing Organization Address City/[facility]/ZIP Code Phon e Number [address] POCT Glucose (08/13/2017 4:29 AM EST) athologist Signature POC Glucose 111 65 - 199 [facility] mg/dL [facility]ATORY Comment: Supplemental ranges: <140 mg/dL before meals <180 mg/dL all other times of the day Specimen Anatomical Collection Method Collection Time Receive d Time (Source) Location / / Volume Laterality Blood specimen 08/13/2017 4:29 AM 018 4:29 (specimen) EST AM EST Yonathan Smith MD POINT OF CARE TEST ORDERABLE S Performing Organization Address City/[facility]/ZIP Code Phon e Number [address] POCT Glucose (08/12/2017 11:28 PM EST) athologist Signature POC Glucose 164 65 - 199 [facility] LABORATORY Comment: Supplemental ranges: <140 mg/dL before meals <180 mg/dL all other times of the day Specimen Anatomical Collection Method Collection Time Receive d Time (Source) Location / / Volume Laterality Blood specimen 08/12/2017 11:28 8 (specimen) PM EST 11:28 PM EST Yonathan Smith MD POINT OF CARE TEST ORDERABLE S Performing Organization Address City/[facility]/[place] [address] (ABNORMAL) POCT Glucose (08/12/2017 7:40 PM EST) athologist Signature POC Glucose 209 (H) 65 - 199 [facility] mg/dL [facility] LABORATORY Comment: Supplemental ranges: <140 mg/dL before meals <180 mg/dL all other times of the day Specimen Anatomical Collection Method Collection Time Receive d Time (Source) Location / / Volume Laterality Blood specimen 08/12/2017 7:40 PM 018 7:40 (specimen) EST PM EST Yoanthan Smith MD POINT OF CARE TEST ORDERABLE S Performing Organization Address City/State/ZIP Code Phon e Number [address] POCT Glucose (08/12/2017 4:24 PM EST) athologist Signature POC Glucose 161 65 - 199 [facility] mg/dL [facility] LABORATORY Comment: Supplemental ranges: <140 mg/dL before meals <180 mg/dL all other times of the day Specimen Anatomical Collection Method Collection Time Receive d Time (Source) Location / / Volume Laterality Blood specimen 08/12/2017 4:24 PM 018 4:24 (specimen) EST PM EST Yonathan Smith MD POINT OF CARE TEST ORDERABLE S Performing Organization Address City/State/[place] [address] POCT Glucose (08/12/2017 12:00 PM EST) athologist Signature POC Glucose 167 65 - 199 [place] [facility] mg/dL [facility] LABORATORY Comment: Supplemental ranges: <140 mg/dL before meals <180 mg/dL all other times of the day Specimen Anatomical Collection Method Collection Time Receive d Time (Source) Location / / Volume Laterality Blood specimen 08/12/2017 12:00 8 (specimen) PM EST 12:00 PM EST Yonathan Smith MD POINT OF CARE TEST ORDERABLE S Performing Organization Address City/State/[place] [address] POCT Glucose (08/12/2017 7:25 AM EST) P athologist Signature POC Glucose 152 65 - 199 [facility] mg/dL [facility] LABORATORY Comment: Supplemental ranges: <140 mg/dL before meals <180 mg/dL all other times of the day Specimen Anatomical Collection Method Collection Time Receive d Time (Source) Location / / Volume Laterality Blood specimen 08/12/2017 7:25 AM 018 7:25 (specimen) EST AM EST Yonathan Smith MD POINT OF CARE TEST ORDERABLE S Performing Organization Address City/State/ZIP Code Phon e Number [place] [id number] (ABNORMAL) Differential, Automated (08/12/2017 6:29 AM EST) Patholo gist Method Time Signature Neutrophils % 78.7 % [facility] LABORATORY Neutr Abs (ANC) 7.94 (H) 1.70 - [facility] 6.10 [facility] x10(3)/[facility] LABORATORY Lymphocytes % 8.8 % [facility] LABORATORY Lymphocytes Abs 0.9 0.9 - 3.2 [facility] x10(3)/[facility] LABORATORY Monocytes % 7.8 % [facility] LABORATORY Monocyte Abs 0.8 0.3 - 0.9 [facility] x10(3)/[facility] LABORATORY Eosinophils % 3.9 % [facility] LABORATORY Eosinophils Abs 0.4 0.0 - 0.4 [facility] x10(3)/[facility] LABORATORY Basophils % 0.3 % [facility] LABORATORY Basophils Abs 0.0 0.0 - 0.1 [facility] x10(3)/[facility] LABORATORY Immature Gran % 0.50 % [facility] [...] Organization Address City/State/ZIP [place] [address] (ABNORMAL) Hemogram (08/12/2017 6:29 AM EST) Analysis Performed At Patho logist Time Signature WBC 10.1 (H) 4.0 - 9.5 [facility] x10(3)/[facility] LABORATORY RBC 3.02 (L) 4.58 - [facility] 5.54 [facility] x10(6)/[facility] LABORATORY Hemoglobin 8.7 (L) 13.7 - [facility] 16.5 gm/dL [facility] LABORATORY Hematocrit 28.1 (L) 40.5 - [facility] 48.5 % [facility] LABORATORY MCV 93.0 82.9 - [facility] 93.1 [facility] LABORATORY MCH 28.8 27.5 - [facility] 32.1 pg [facility] LABORATORY MCHC 31.0 (L) 32.0 - [facility] 35.7 gm/dL [facility] LABORATORY Platelets 223 145 - 357 [facility] x10(3)/[facility] LABORATORY RDWSD 56.1 (H) 36.0 - [facility] 45.0 [facility] LABORATORY RDWCV 16.4 (H) 11.4 - [facility] 13.8 % [facility] LABORATORY MPV 9.0 7.6 - 12.9 [facility] LABORATORY nRBC % Auto 0.0 % [facility] LABORATORY nRBC Abs Auto 0.000 0.000 - [place] [facility] 0.000 [facility] x10(3)/[facility] LABORATORY Specimen Anatomical Collection Method Collection Time Receive d Time (Source) Location / / Volume Laterality Blood specimen 08/12/2017 6:29 AM 018 6:38 (specimen) EST AM EST Resulting Agency Comment Spec In Lab Yonathan Smith MD HEMATOLOGY ORDERABLES Performing Organization Address City/[facility]/[place] [address] (ABNORMAL) Prothrombin Time (08/12/2017 [...] Organization Address City/State/[place] [address] (ABNORMAL) Basic Metabolic Panel (non-fasting) (08/12/2017 6:29 AM EST) athologist Signature Glucose Lvl 151 65 - 199 [facility] mg/dL [facility] LABORATORY Comment: Diabetes: >=200 mg/dL [...] Calcium 7.9 (L) 8.5 - 10.5 mg/dL [facility] LABORATORY Estimated GFR >60 >=60 [facility] LABORATORY Comment: The reported eGFR should be multiplied b y 1.2 for patients. The MDRD is not an appropriate measure o f renal function for patients with body mass extremes or in patients with acute kidney failure. http://Paydiant/DHnkdep http://Paydiant/DHMCnkf Specimen Anatomical Collection Method Collection Time Receive d Time (Source) Location / / Volume Laterality Blood specimen 08/12/2017 6:29 AM 018 6:38 (specimen) EST AM EST Resulting Agency Comment Spec In Lab Yonathan Smith MD CHEMISTRY ORDERABLES Performing Organization Address City/[facility]/[place] [address] POCT Glucose (08/12/2017 4:08 AM EST) athologist Signature POC Glucose 181 65 - 199 [facility] mg/dL [facility] LABORATORY Comment: Supplemental ranges: <140 mg/dL before meals <180 mg/dL all other times of the day Specimen Anatomical Collection Method Collection Time Receive d Time (Source) Location / / Volume Laterality Blood specimen 08/12/2017 4:08 AM 018 4:08 (specimen) EST AM EST Yonathan Smith MD POINT OF CARE TEST ORDERABLE S Performing Organization Address City/[facility]/[place] [address] (ABNORMAL) POCT Glucose (08/12/2017 12:17 AM EST) athologist Signature POC Glucose 221 (H) 65 - 199 [facility] mg/dL [facility] LABORATORY Comment: Supplemental ranges: <140 mg/dL before meals <180 mg/dL all other times of the day Specimen Anatomical Collection Method Collection Time Receive d Time (Source) Location / / Volume Laterality Blood specimen 08/12/2017 12:17 8 (specimen) AM EST 12:17 AM EST Yonathan Smith MD POINT OF CARE TEST ORDERABLE S Performing Organization Address City/[facility]/[place] [address] (ABNORMAL) POCT Glucose (08/11/2017 8:52 PM EST) athologist Signature POC Glucose 221 (H) 65 - 199 [place] mg/dL [facility] LABORATORY Comment: Supplemental ranges: <140 mg/dL before meals <180 mg/dL all other times of the day Specimen Anatomical Collection Method Collection Time Receive d Time (Source) Location / / Volume Laterality Blood specimen 08/11/2017 8:52 PM 018 8:52 (specimen) EST PM EST Yonathan Smith MD POINT OF CARE TEST ORDERABLE S Performing Organization Address City/[facility]/[place] [address] POCT Glucose (08/11/2017 5:59 PM EST) athologist Signature POC Glucose 169 65 - 199 [place] [facility] mg/dL [facility] LABORATORY Comment: Supplemental ranges: <140 mg/dL before meals <180 mg/dL all other times of the day Specimen Anatomical Collection Method Collection Time Receive d Time (Source) Location / / Volume Laterality Blood specimen 08/11/2017 5:59 PM 018 5:59 (specimen) EST PM EST Yonathan Smith MD POINT OF CARE TEST ORDERABLE S Performing Organization Address City/State/[place] [address] (ABNORMAL) POCT Glucose (08/11/2017 4:08 PM EST) athologist Signature POC Glucose 240 (H) 65 - 199 [place] [facility] mg/dL [facility] LABORATORY Comment: Supplemental ranges: <140 mg/dL before meals <180 mg/dL all other times of the day Specimen Anatomical Collection Method Collection Time Receive d Time (Source) Location / / Volume Laterality Blood specimen 08/11/2017 4:08 PM 018 4:08 (specimen) EST PM EST Yonathan Smith MD POINT OF CARE TEST ORDERABLE S Performing Organization Address City/[facility]/ZIP Code Phon e Number [address] POCT Glucose (08/11/2017 12:04 PM EST) athologist Signature POC Glucose 182 65 - 199 [facility] LABORATORY Comment: Supplemental ranges: <140 mg/dL before meals <180 mg/dL all other times of the day Specimen Anatomical Collection Method Collection Time Receive d Time (Source) Location / / Volume Laterality Blood specimen 08/11/2017 12:04 8 (specimen) PM EST 12:04 PM EST Yonathan Smith MD POINT OF CARE TEST ORDERABLE S Performing Organization Address City/[facility]/ZIP Code Phon e Number [address] POCT Glucose (08/11/2017 7:31 AM EST) athologist Signature POC Glucose 156 65 - 199 [facility] LABORATORY Comment: Supplemental ranges: <140 mg/dL before meals <180 mg/dL all other times of the day Specimen Anatomical Collection Method Collection Time Receive d Time (Source) Location / / Volume Laterality Blood specimen 08/11/2017 7:31 AM 018 7:31 (specimen) EST AM EST Yonathan Smith MD POINT OF CARE TEST ORDERABLE S Performing Organization Address City/[facility]/ZIP Code Phon e Number [address] (ABNORMAL) Differential, Automated (08/11/2017 6:16 AM EST) [facility] Method Time Signature Neutrophils % 83.7 % [facility] LABORATORY Neutr Abs (ANC) 10.76 (H) 1.70 - [facility] 6.10 [facility] x10(3)/[facility] L LABORATORY Lymphocytes % 6.0 % [facility] LABORATORY Lymphocytes Abs 0.8 (L) 0.9 - 3.2 [facility] x10(3)/[facility] LABORATORY Monocytes % 7.5 % [facility] LABORATORY Monocyte Abs 1.0 (H) 0.3 - 0.9 [facility] x10(3)/[facility] LABORATORY Eosinophils % 2.0 % [facility] LABORATORY Eosinophils Abs 0.3 0.0 - 0.4 [facility] x10(3)/[facility] LABORATORY Basophils % 0.3 % [facility] LABORATORY Basophils Abs 0.0 0.0 - 0.1 [facility] x10(3)/[facility] LABORATORY Immature Gran % 0.50 % [facility] [...] Organization Address City/State/ZIP [place] [address] (ABNORMAL) Hemogram (08/11/2017 6:16 AM EST) Analysis Performed At Patho logist Time Signature WBC 12.9 (H) 4.0 - 9.5 [facility] x10(3)/[facility] LABORATORY RBC 3.28 (L) 4.58 - [facility] 5.54 [facility] x10(6)/[facility] LABORATORY Hemoglobin 9.5 (L) 13.7 - [facility] 16.5 gm/dL [facility] LABORATORY Hematocrit 29.8 (L) 40.5 - [facility] 48.5 % [facility] LABORATORY MCV 90.9 82.9 - [facility] 93.1 [facility] LABORATORY MCH 29.0 27.5 - [place] 32.1 pg [facility] LABORATORY MCHC 31.9 (L) 32.0 - [place] 35.7 gm/dL [facility] LABORATORY Platelets 236 145 - 357 [facility] x10(3)/[facility] LABORATORY RDWSD 53.5 (H) 36.0 - [place] 45.0 [facility] LABORATORY RDWCV 16.3 (H) 11.4 - [facility] 13.8 % [facility] LABORATORY MPV 8.8 7.6 - 12.9 [facility] LABORATORY nRBC % Auto 0.0 % [facility] LABORATORY nRBC Abs Auto 0.000 0.000 - [facility] 0.000 [facility] x10(3)/[facility] LABORATORY Specimen Anatomical Collection Method Collection Time Receive d Time (Source) Location / / Volume Laterality Blood specimen 08/11/2017 6:16 AM 018 6:24 (specimen) EST AM EST Resulting Agency Comment Spec In Lab Yonathan Smith MD HEMATOLOGY ORDERABLES Performing Organization Address City/State/ZIP [place] [address] (ABNORMAL) Prothrombin Time (08/11/2017 [...] Organization Address City/State/ZIP [place] [address] Basic Metabolic Panel (non-fasting) (08/11/2017 6:16 AM EST) P athologist Signature Glucose Lvl 139 65 - 199 [facility] mg/dL [facility] LABORATORY Comment: Diabetes: >=200 mg/dL [...] [facility] Estimated GFR >60 >=60 [facility] LABORATORY Comment: The reported eGFR should be multiplied b y 1.2 for patients. The MDRD is not an appropriate measure o f renal function for patients with body mass extremes or in patients with acute kidney failure. http://Tunesat.StyleChat by Pro[employer] Mobile/DHnkdep http://Paydiant/DHMCnkf Specimen Anatomical Collection Method Collection Time Receive d Time (Source) Location / / Volume Laterality Blood specimen 08/11/2017 6:16 AM 018 6:24 (specimen) EST AM EST Resulting Agency Comment Spec In Lab Yonathan Smith MD CHEMISTRY ORDERABLES Performing Organization Address City/State/ZIP Code Phon e Number [address] POCT Glucose (08/11/2017 4:07 AM EST) athologist Signature POC Glucose 162 65 - 199 [place] [facility] mg/dL [facility] LABORATORY Comment: Supplemental ranges: <140 mg/dL before meals <180 mg/dL all other times of the day Specimen Anatomical Collection Method Collection Time Receive d Time (Source) Location / / Volume Laterality Blood specimen 08/11/2017 4:07 AM 018 4:07 (specimen) EST AM EST Yonathan Smith MD POINT OF CARE TEST ORDERABLE S Performing Organization Address City/[facility]/ZIP Code Phon e Number [address] POCT Glucose (08/10/2017 11:59 PM EST) athologist Signature POC Glucose 166 65 - 199 [place] [facility] mg/dL [facility] LABORATORY Comment: Supplemental ranges: <140 mg/dL before meals <180 mg/dL all other times of the day Specimen Anatomical Collection Method Collection Time Receive d Time (Source) Location / / Volume Laterality Blood specimen 08/10/2017 11:59 8 (specimen) PM EST 11:59 PM EST Yonathan Smith MD POINT OF CARE TEST ORDERABLE S Performing Organization Address City/State/ZIP Code Phon e Number [address] POCT Glucose (08/10/2017 8:12 PM EST) athologist Signature POC Glucose 156 65 - 199 [place] [facility] mg/dL [facility] LABORATORY Comment: Supplemental ranges: <140 mg/dL before meals <180 mg/dL all other times of the day Specimen Anatomical Collection Method Collection Time Receive d Time (Source) Location / / Volume Laterality Blood specimen 08/10/2017 8:12 PM 018 8:12 (specimen) EST PM EST Yonathan Smith MD POINT OF CARE TEST ORDERABLE S Performing Organization Address City/State/ZIP Code Phon e Number [place] [id number] HOSPITAL LAB[address]ORY Drive (ABNORMAL) POCT Glucose (08/10/2017 4:42 PM EST) P athologist Signature POC Glucose 211 (H) 65 - 199 [facility] mg/dL [facility] LABORATORY Comment: Supplemental ranges: <140 mg/dL before meals <180 mg/dL all other times of the day Specimen Anatomical Collection Method Collection Time Receive d Time (Source) Location / / Volume Laterality Blood specimen 08/10/2017 4:42 PM 018 4:42 (specimen) EST PM EST Yonathan Smith MD POINT OF CARE TEST ORDERABLE S Performing Organization Address City/State/ZIP Code Phon e Number [address] (ABNORMAL) Differential, Automated (08/10/2017 2:30 PM EST) Patholo gist Method Time Signature Neutrophils % 87.6 % [facility] LABORATORY Neutr Abs (ANC) 9.90 (H) 1.70 - [facility] 6.10 [facility] x10(3)/[facility] L LABORATORY Lymphocytes % 4.3 % [facility] LABORATORY Lymphocytes Abs 0.5 (L) 0.9 - 3.2 [facility] x10(3)/[facility] LABORATORY Monocytes % 6.0 % [facility] LABORATORY Monocyte Abs 0.7 0.3 - 0.9 [facility] x10(3)/[facility] LABORATORY Eosinophils % 1.1 % [facility] LABORATORY Eosinophils Abs 0.1 0.0 - 0.4 [facility] x10(3)/[facility] LABORATORY Basophils % 0.4 % [facility] LABORATORY Basophils Abs 0.0 0.0 - 0.1 [facility] x10(3)/[facility] LABORATORY Immature Gran % 0.60 % [facility] [...] Organization Address City/State/ZIP [place] [address] (ABNORMAL) Hemogram (08/10/2017 2:30 PM EST) Analysis Performed At Patho logist Time Signature WBC 11.3 (H) 4.0 - 9.5 [facility] x10(3)/[facility] LABORATORY RBC 3.13 (L) 4.58 - [facility] 5.54 [facility] x10(6)/[facility] LABORATORY Hemoglobin 8.9 (L) 13.7 - [facility] LABORATORY Hematocrit 28.4 (L) 40.5 - [facility] 48.5 % [facility] LABORATORY MCV 90.7 82.9 - [facility] 93.1 [facility] LABORATORY MCH 28.4 27.5 - [facility] 32.1 pg [facility] LABORATORY MCHC 31.3 (L) 32.0 - [facility] 35.7 gm/dL [facility] LABORATORY Platelets 213 145 - 357 [facility] x10(3)/[facility] LABORATORY RDWSD 53.7 (H) 36.0 - [facility] 45.0 [facility] LABORATORY RDWCV 16.4 (H) 11.4 - [facility] 13.8 % [facility] LABORATORY MPV 8.9 7.6 - 12.9 [facility] LABORATORY nRBC % Auto 0.0 % [facility] LABORATORY nRBC Abs Auto 0.000 0.000 - [facility] [place] 0.000 [facility] x10(3)/[facility] LABORATORY Specimen Anatomical Collection Method Collection Time Receive d Time (Source) Location / / Volume Laterality Blood specimen 08/10/2017 2:30 PM 018 2:48 (specimen) EST PM EST Resulting Agency Comment Spec In Lab Yonathan Smith MD HEMATOLOGY ORDERABLES Performing Organization Address City/[facility]/ZIP Code Phon e Number [address] (ABNORMAL) POCT Glucose (08/10/2017 1:50 PM EST) athologist Signature POC Glucose 243 (H) 65 - 199 [facility] mg/dL [facility] LABORATORY Comment: Supplemental ranges: <140 mg/dL before meals <180 mg/dL all other times of the day Specimen Anatomical Collection Method Collection Time Receive d Time (Source) Location / / Volume Laterality Blood specimen 08/10/2017 1:50 PM 018 1:50 (specimen) EST PM EST Yonathan Smith MD POINT OF CARE TEST ORDERABLE S Performing Organization Address City/[facility]/ZIP Code Phon e Number [address] POCT Glucose (08/10/2017 11:21 AM EST) athologist Signature POC Glucose 156 65 - 199 [facility] mg/dL [facility] LABORATORY Comment: Supplemental ranges: <140 mg/dL before meals <180 mg/dL all other times of the day Specimen Anatomical Collection Method Collection Time Receive d Time (Source) Location / / Volume Laterality Blood specimen 08/10/2017 11:21 8 (specimen) AM EST 11:21 AM EST Yonathan Smith MD POINT OF CARE TEST ORDERABLE S Performing Organization Address City/[facility]/ZIP Code Phon e Number [address] (ABNORMAL) Differential, Automated (08/10/2017 10:28 AM EST) [facility] Method Time Signature Neutrophils % 85.3 % [facility] LABORATORY Neutr Abs (ANC) 9.43 (H) 1.70 - [facility] 6.10 [facility] x10(3)/[facility] L LABORATORY Lymphocytes % 5.5 % [facility] LABORATORY Lymphocytes Abs 0.6 (L) 0.9 - 3.2 [facility] x10(3)/[facility] LABORATORY Monocytes % 5.9 % [facility] LABORATORY Monocyte Abs 0.6 0.3 - 0.9 [facility] x10(3)/[facility] LABORATORY Eosinophils % 2.1 % [facility] LABORATORY Eosinophils Abs 0.2 0.0 - 0.4 [facility] x10(3)/[facility] LABORATORY Basophils % 0.4 % [facility] LABORATORY Basophils Abs 0.0 0.0 - 0.1 [facility] x10(3)/[facility] LABORATORY Immature Gran % 0.80 % [facility] [...] Organization Address City/State/ZIP [place] [address] (ABNORMAL) Hemogram (08/10/2017 10:28 AM EST) Analysis Performed At Patho logist Time Signature WBC 11.0 (H) 4.0 - 9.5 [facility] x10(3)/[facility] LABORATORY RBC 3.02 (L) 4.58 - [facility] 5.54 [facility] x10(6)/[facility] LABORATORY Hemoglobin 8.8 (L) 13.7 - [facility] 16.5 gm/dL [facility] LABORATORY Hematocrit 28.1 (L) 40.5 - [facility] 48.5 % [facility] LABORATORY MCV 93.0 82.9 - [facility] 93.1 [facility] LABORATORY MCH 29.1 27.5 - [facility] OL[facility]CK 32.1 pg [facility] LABORATORY MCHC 31.3 (L) 32.0 - [facility] 35.7 gm/dL [facility] LABORATORY Platelets 207 145 - 357 [facility] x10(3)/[facility] LABORATORY RDWSD 55.3 (H) 36.0 - [facility] DAVIS 45.0 [facility] LABORATORY RDWCV 16.4 (H) 11.4 - [facility] RY[facility] 13.8 % [facility] LABORATORY MPV 9.0 7.6 - 12.9 [facility] LABORATORY nRBC % Auto 0.0 % [facility] nRBC Abs Auto 0.000 0.000 - [place] DAV[facility] 0.000 [facility] x10(3)/[facility] LABORATORY Specimen Anatomical Collection Method Collection Time Receive d Time (Source) Location / / Volume Laterality Blood specimen 08/10/2017 10:28 8 (specimen) AM EST 10:35 AM EST Resulting Agency Comment Spec In Lab Yonathan Smith MD HEMATOLOGY ORDERABLES Performing Organization Address City/State/ZIP [place] [address] VS Angiogram/intervention (vascular) (08/10/2017 [...] 2.5x80 5. Completion RLE angiogram 6. L [employer]ILDING [employer]STRUCTION SUPERVISOR angiogram 7. 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 L BUILDING CONSTRUCTION SUPERVISOR access in the distal L BUILDING CONSTRUCTION SUPERVISOR. - Closure device: Mynx Technical Procedure: ?The [...] for a 45cm 5F Destination. V18 and Ceres a nd QuickCross catheters were used to [...] bifurcation. Access appeared in the distal R [employer]ILDING CONSTRUCTION SUPERVISOR. Closure and sheath removal was performed with [...] 2.5x80 5. Completion RLE angiogram 6. L BUILDING CONSTRUCTION SUPERVISOR angiogram 7. 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 L BUILDING CONSTRUCTION SUPERVISOR access in the distal L BUILDING CONSTRUCTION SUPERVISOR. - Closure device: Mynx Technical Procedure: The [...] for a 45cm 5F Destination. V18 and Ceres a nd QuickCross catheters were used to [...] bifurcation. Access appeared in the distal R BUILDING CONSTRUCTION SUPERVISOR. Closure and sheath removal was performed with [...] (H) 1.70 - [facility] 6.10 [facility] x10(3)/[facility] LABORATORY Lymphocytes % 8.8 % [facility] LABORATORY Lymphocytes Abs 1.0 0.9 - 3.2 [facility] x10(3)/[facility] LABORATORY Monocytes % 8.3 % [facility] LABORATORY Monocyte Abs 0.9 0.3 - 0.9 [facility] x10(3)/[facility] LABORATORY Eosinophils % 2.0 % [facility] LABORATORY Eosinophils Abs 0.2 0.0 - 0.4 [facility] x10(3)/[facility] LABORATORY Basophils % 0.4 % [facility] LABORATORY Basophils Abs 0.0 0.0 - 0.1 [facility] x10(3)/[facility] LABORATORY Immature Gran % 0.40 % [facility] [...] Organization Address City/State/[place] [address] (ABNORMAL) Hemogram (08/10/2017 5:50 AM EST) Analysis Performed At Patho logist Time Signature WBC 11.3 (H) 4.0 - 9.5 [facility] x10(3)/[facility] LABORATORY RBC 3.15 (L) 4.58 - [place] [facility] 5.54 [facility] x10(6)/[facility] LABORATORY Hemoglobin 8.9 (L) 13.7 - [facility]/dL [facility] LABORATORY Hematocrit 29.0 (L) 40.5 - [facility] RYAN 48.5 % [facility] LABORATORY MCV 92.1 82.9 - [facility] RYAN 93.1 [facility] LABORATORY MCH 28.3 27.5 - [facility] RYAN 32.1 pg [facility] LABORATORY MCHC 30.7 (L) 32.0 - [facility] RYAN 35.7 gm/dL [facility] LABORATORY Platelets 231 145 - 357 [facility] x[facility](3[facility] RDWSD 53.9 (H) 36.0 - [facility] RYAN 45.0 [facility] LABORATORY RDWCV 16.2 (H) 11.4 - [facility] RYAN 13.8 % [facility] LABORATORY MPV 8.7 7.6 - 12.9 [facility] LABORATORY nRBC % Auto 0.0 % [facility] LABORATORY nRBC Abs Auto 0.000 0.000 - [facility] 0.000 [facility] x10(3)/[facility] LABORATORY Specimen Anatomical Collection Method Collection Time Receive d Time (Source) Location / / Volume Laterality Blood specimen 08/10/2017 5:50 AM 018 5:59 (specimen) EST AM EST Resulting Agency Comment Spec In Lab Yonathan Smith MD HEMATOLOGY ORDERABLES Performing Organization Address City/State/ZIP [place] [address] (ABNORMAL) Basic Metabolic Panel (non-fasting) (08/10/2017 5:50 AM EST) P athologist Signature Glucose Lvl 135 65 - 199 [facility] mg/dL [facility] LABORATORY Comment: Diabetes: >=200 mg/dL [...] [facility] LAB[facility]ATORY Estimated GFR >60 >=60 [facility] LABORATORY Comment: The reported eGFR should be multiplied b y 1.2 for patients. The MDRD is not an appropriate measure o f renal function for patients with body mass extremes or in patients with acute kidney failure. http://Tunesat.StyleChat by [employer]/DHnkdep http://Tunesat.StyleChat by Pro[employer] Mobile/DHMCnkf Specimen Anatomical Collection Method Collection Time Receive d Time (Source) Location / / Volume Laterality Blood specimen 08/10/2017 5:50 AM 018 5:59 (specimen) EST AM EST Resulting Agency Comment Spec In Lab Yonathan Smith MD CHEMISTRY ORDERABLES Performing Organization Address [facility] [place] [address] (ABNORMAL) Prothrombin Time (08/10/2017 [...] Smith MD HEMATOLOGY ORDERABLES Performing Organization Address City/[facility] [place] [address] (ABNORMAL) POCT Glucose (08/10/2017 4:01 AM EST) athologist Signature POC Glucose 206 (H) 65 - 199 [facility] mg/dL [facility] LABORATORY Comment: Supplemental ranges: <140 mg/dL before meals <180 mg/dL all other times of the day Specimen Anatomical Collection Method Collection Time Receive d Time (Source) Location / / Volume Laterality Blood specimen 08/10/2017 4:01 AM 018 4:01 (specimen) EST AM EST Yonathan Smith MD POINT OF CARE TEST ORDERABLE S Performing Organization Address City/State/ZIP Code Phon e Number [address] POCT Glucose (08/10/2017 2:01 AM EST) athologist Signature POC Glucose 188 65 - 199 [facility] mg/dL [facility] LABORATORY Comment: Supplemental ranges: <140 mg/dL before meals <180 mg/dL all other times of the day Specimen Anatomical Collection Method Collection Time Receive d Time (Source) Location / / Volume Laterality Blood specimen 08/10/2017 2:01 AM 018 2:01 (specimen) EST AM EST Yonathan Smith MD POINT OF CARE TEST ORDERABLE S Performing Organization Address City/[facility]/[place] [address] (ABNORMAL) POCT Glucose (08/09/2017 11:42 PM EST) athologist Signature POC Glucose 283 (H) 65 - 199 [place] mg/dL [facility] LABORATORY Comment: Supplemental ranges: <140 mg/dL before meals <180 mg/dL all other times of the day Specimen Anatomical Collection Method Collection Time Receive d Time (Source) Location / / Volume Laterality Blood specimen 08/09/2017 11:42 8 (specimen) PM EST 11:42 PM EST Yonathan Smith MD POINT OF CARE TEST ORDERABLE S Performing Organization Address City/State/[place] [address] POCT Glucose (08/09/2017 8:55 PM EST) athologist Signature POC Glucose 182 65 - 199 [place] mg/dL [facility] LABORATORY Comment: Supplemental ranges: <140 mg/dL before meals <180 mg/dL all other times of the day Specimen Anatomical Collection Method Collection Time Receive d Time (Source) Location / / Volume Laterality Blood specimen 08/09/2017 8:55 PM 018 8:55 (specimen) EST PM EST Yonathan Smith MD POINT OF CARE TEST ORDERABLE S Performing Organization Address City/[facility]/[place] [address] (ABNORMAL) APTT (08/09/2017 6:42 [...] Smith MD HEMATOLOGY ORDERABLES Performing Organization Address City/[facility]/[place] [address] POCT Glucose (08/09/2017 4:41 PM EST) athologist Signature POC Glucose 195 65 - 199 [facility] LABORATORY Comment: Supplemental ranges: <140 mg/dL before meals <180 mg/dL all other times of the day Specimen Anatomical Collection Method Collection Time Receive d Time (Source) Location / / Volume Laterality Blood specimen 08/09/2017 4:41 PM 018 4:41 (specimen) EST PM EST Yonathan Smith MD POINT OF CARE TEST ORDERABLE S Performing Organization Address City/[facility]/[place] [address] POCT Glucose (08/09/2017 12:29 PM EST) athologist Signature POC Glucose 140 65 - 199 [facility]dL [facility] LABORATORY Comment: Supplemental ranges: <140 mg/dL before meals <180 mg/dL all other times of the day Specimen Anatomical Collection Method Collection Time Receive d Time (Source) Location / / Volume Laterality Blood specimen 08/09/2017 12:29 8 (specimen) PM EST 12:29 PM EST Yonathan Smith MD POINT OF CARE TEST ORDERABLE S Performing Organization Address [facility]/ZIP Code Phon e Number [address] POCT Glucose (08/09/2017 9:59 AM EST) P athologist Signature POC Glucose 135 65 - 199 [facility] mg/dL [facility] LABORATORY Comment: Supplemental ranges: <140 mg/dL before meals <180 mg/dL all other times of the day Specimen Anatomical Collection Method Collection Time Receive d Time (Source) Location / / Volume Laterality Blood specimen 08/09/2017 9:59 AM 018 9:59 (specimen) EST AM EST Yonathan Smith MD POINT OF CARE TEST ORDERABLE S Performing Organization Address [facility]/ZIP Code Phon e Number [address] Specimen to Pathology (08/09/2017 [...] City/[facility]/[place] [address] Surgical Pathology Report (08/09/2017 8:40 AM EST) Component Value Ref Test Analysis Performed At Patholo gist Range Method Time Signature Surgical [id number] ? Location: [facility]; [facility] [place]; A [facility] Report The signing pathologist has (i) [...] [facility] Dept. of Pathology, [place], [place] CLINICAL INFORMATION Specimen Submitted: A - [...] Organization Address City/State/ZIP [place] [address] Anaerobic Culture (08/09/2017 8:30 AM EST) [facility] Method Time Signature Anaerobic No anaerobic [facility] Culture organisms [facility] LABORATORY Specimen Anatomical Collection Method [...] City/[facility]/[place] [address] (ABNORMAL) Abscess/Wound Aspirate Culture (08/09/2017 8:30 AM EST) [facility] Method Time Signature Abscess/Wound Moderate mixed [facility] Aspirate bacterial [place] Culture morphotypes [facility] normal LABORATORY cutaneous leroy (A) Gram Stain Rare White Blood Cells [place] Few Gram Positive Cocci in pairs [place] () [facility] LABORATORY Organism Gram Positive [place] Cocci in pairs [place] () [facility] LABORATORY Specimen Anatomical Collection Method [...] City/[facility]/ZIP Code Phon e Number [place] [id number]OS[address] POCT Glucose (08/09/2017 4:28 AM EST) P athologist Signature POC Glucose 128 65 - 199 [facility] mg/dL [facility] LABORATORY Comment: Supplemental ranges: <140 mg/dL before meals <180 mg/dL all other times of the day Specimen Anatomical Collection Method Collection Time Receive d Time (Source) Location / / Volume Laterality Blood specimen 08/09/2017 4:28 AM 018 4:28 (specimen) EST AM EST Yonathan Smith MD POINT OF CARE TEST ORDERABLE S Performing Organization Address City/State/[place] [address] ABORH Recheck Status (08/09/2017 1:10 AM EST) [facility] Method Time Signature ABORH Type Completed [facility] LABORATORY Specimen Anatomical Collection Method Collection Time Receive d Time (Source) Location / / Volume Laterality Blood specimen 08/09/2017 1:10 AM 018 1:35 (specimen) EST AM EST Resulting Agency Comment Spec In Lab Yonathan Smith MD BLOOD BANK ORDERABLES Performing Organization Address City/[facility]/[place] [address] Antibody screen (08/09/2017 1:10 AM EST) [facility] Method Time Signature Ab Screen Negative [facility] LABORATORY Expires at 08/12/2017 [facility] [id number] on: [facility] LABORATORY Specimen Anatomical Collection Method Collection Time Receive d Time (Source) Location / / Volume Laterality Blood specimen 08/09/2017 1:10 AM 018 1:35 (specimen) EST AM EST Resulting Agency Comment Spec In Lab Yonathan Smith MD BLOOD BANK ORDERABLES Performing Organization Address City/[facility]/[place] [address] ABO/Rh Typing (08/09/2017 1:10 [...] City/[facility]/[place] [address] (ABNORMAL) APTT (08/09/2017 1:10 [...] Organization Address City/State/ZIP [place] [address] (ABNORMAL) Differential, Automated (08/09/2017 1:10 AM EST) [facility] gist Method Time Signature Neutrophils % 76.2 % [facility] LABORATORY Neutr Abs (ANC) 8.59 (H) 1.70 - [facility] 6.10 [facility] x10(3)/[facility] LABORATORY Lymphocytes % 11.0 % [facility] LABORATORY Lymphocytes Abs 1.2 0.9 - 3.2 [facility] x10(3)/[facility] LABORATORY Monocytes % 8.4 % [facility] LABORATORY Monocyte Abs 1.0 (H) 0.3 - 0.9 [facility] x10(3)/[facility] LABORATORY Eosinophils % 3.5 % [facility] LABORATORY Eosinophils Abs 0.4 0.0 - 0.4 [facility] x10(3)/[facility] LABORATORY Basophils % 0.5 % [facility] LABORATORY Basophils Abs 0.1 0.0 - 0.1 [facility] x10(3)/[facility] LABORATORY Immature Gran % 0.40 % [facility] [...] Organization Address City/State/ZIP [place] [address] (ABNORMAL) Hemogram (08/09/2017 1:10 AM EST) Analysis Performed At Patho logist Time Signature WBC 11.3 (H) 4.0 - 9.5 [facility] x10(3)/[facility] LABORATORY RBC 3.47 (L) 4.58 - [facility] 5.54 [facility] x10(6)/[facility] LABORATORY Hemoglobin 10.0 (L) 13.7 - [facility] 16.5 gm/dL [facility] LABORATORY Hematocrit 31.9 (L) 40.5 - [facility] 48.5 % [facility] LABORATORY MCV 91.9 82.9 - [facility] 93.1 [facility] LABORATORY MCH 28.8 27.5 - [facility] RYAN 32.1 pg [facility] LABORATORY MCHC 31.3 (L) 32.0 - [facility] 35.7 gm/dL [facility] LABORATORY Platelets 234 145 - 357 [facility] x10(3)/[facility] LABORATORY RDWSD 54.0 (H) 36.0 - [facility] RYAN 45.0 [facility] LABORATORY RDWCV 16.2 (H) 11.4 - [facility] 13.8 % [facility] LABORATORY MPV 8.7 7.6 - 12.9 [facility] LABORATORY nRBC % Auto 0.0 % [facility] LABORATORY nRBC Abs Auto 0.000 0.000 - [place] [facility] 0.000 [facility] x10(3)/[facility] LABORATORY Specimen Anatomical Collection Method Collection Time Receive d Time (Source) Location / / Volume Laterality Blood specimen 08/09/2017 1:10 AM 018 1:19 (specimen) EST AM EST Resulting Agency Comment Spec In Lab Yonathan Smith MD HEMATOLOGY ORDERABLES Performing Organization Address [facility] [place] [address] (ABNORMAL) Prothrombin Time (08/09/2017 [...] Smith MD HEMATOLOGY ORDERABLES Performing Organization Address [facility] [place] [address] (ABNORMAL) Basic Metabolic Panel (non-fasting) (08/09/2017 1:10 AM EST) athologist Signature Glucose Lvl 108 65 - 199 [facility] mg/dL [facility] LABORATORY Comment: Diabetes: >=200 mg/dL [...] [facility] LABORATORY Estimated GFR 45 (L) >=60 [facility] LABORATORY Comment: The reported eGFR should be multiplied b y 1.2 for patients. The MDRD is not an appropriate measure o f renal function for patients with body mass extremes or in patients with acute kidney failure. http://Paydiant/DHnkdep http://Paydiant/DHMCnkf Specimen Anatomical Collection Method Collection Time Receive d Time (Source) Location / / Volume Laterality Blood specimen 08/09/2017 1:10 AM 018 1:19 (specimen) EST AM EST Resulting Agency Comment Spec In Lab Yonathan Smith MD CHEMISTRY ORDERABLES Performing Organization Address City/State/ZIP Code Phon e Number [address] POCT Glucose (08/09/2017 12:05 AM EST) athologist Signature POC Glucose 128 65 - 199 [facility] mg/dL [facility] LABORATORY Comment: Supplemental ranges: <140 mg/dL before meals <180 mg/dL all other times of the day Specimen Anatomical Collection Method Collection Time Receive d Time (Source) Location / / Volume Laterality Blood specimen 08/09/2017 12:05 8 (specimen) AM EST 12:05 AM EST Yonathan Smith MD POINT OF CARE TEST ORDERABLE S Performing Organization Address City/State/[place] [address] (ABNORMAL) POCT Glucose (08/08/2017 7:36 PM EST) athologist Signature POC Glucose 215 (H) 65 - 199 [facility] LABORATORY Comment: Supplemental ranges: <140 mg/dL before meals <180 mg/dL all other times of the day Specimen Anatomical Collection Method Collection Time Receive d Time (Source) Location / / Volume Laterality Blood specimen 08/08/2017 7:36 PM 018 7:36 (specimen) EST PM EST Yonathan Smith MD POINT OF CARE TEST ORDERABLE S Performing Organization Address City/[facility]/[place] [address] (ABNORMAL) POCT Glucose (08/08/2017 6:23 PM EST) athologist Signature POC Glucose 216 (H) 65 - 199 [facility] mg/dL [facility] LABORATORY Comment: Supplemental ranges: <140 mg/dL before meals <180 mg/dL all other times of the day Specimen Anatomical Collection Method Collection Time Receive d Time (Source) Location / / Volume Laterality Blood specimen 08/08/2017 6:23 PM 018 6:23 (specimen) EST PM EST Yonathan Smith MD POINT OF CARE TEST ORDERABLE S Performing Organization Address City/[facility]/[place] [address] (ABNORMAL) APTT (08/08/2017 6:00 [...] Smith MD HEMATOLOGY ORDERABLES Performing Organization Address City/[facility]/ZIP Code Phon e Number [facility] [place] [address] POCT Glucose (08/08/2017 4:42 PM EST) athologist Signature POC Glucose 78 65 - 199 [facility] LABORATORY Comment: Supplemental ranges: <140 mg/dL before meals <180 mg/dL all other times of the day Specimen Anatomical Collection Method Collection Time Receive d Time (Source) Location / / Volume Laterality Blood specimen 08/08/2017 4:42 PM 018 4:42 (specimen) EST PM EST Yonathan Smith MD POINT OF CARE TEST ORDERABLE S Performing Organization Address City/State/[place] [address] (ABNORMAL) POCT Glucose (08/08/2017 4:01 PM EST) athologist Signature POC Glucose 58 (L) 65 - 199 [facility] mg/dL [facility] LABORATORY Comment: Supplemental ranges: <140 mg/dL before meals <180 mg/dL all other times of the day Specimen Anatomical Collection Method Collection Time Receive d Time (Source) Location / / Volume Laterality Blood specimen 08/08/2017 4:01 PM 018 4:01 (specimen) EST PM EST Yonathan Smith MD POINT OF CARE TEST ORDERABLE S Performing Organization Address City/State/[place] [address] POCT Glucose (08/08/2017 11:51 AM EST) athologist Signature POC Glucose 90 65 - 199 [facility] mg/dL [facility] LABORATORY Comment: Supplemental ranges: <140 mg/dL before meals <180 mg/dL all other times of the day Specimen Anatomical Collection Method Collection Time Receive d Time (Source) Location / / Volume Laterality Blood specimen 08/08/2017 11:51 8 (specimen) AM EST 11:51 AM EST Yonathan Smith MD POINT OF CARE TEST ORDERABLE S Performing Organization Address City/State/[place] [address] (ABNORMAL) APTT (08/08/2017 10:27 [...] Smith MD HEMATOLOGY ORDERABLES Performing Organization Address City/[facility]/ZIP Code Phon e Number [address] POCT Glucose (08/08/2017 8:02 AM EST) athologist Signature POC Glucose 178 65 - 199 [facility] mg/dL [facility] LABORATORY Comment: Supplemental ranges: <140 mg/dL before meals <180 mg/dL all other times of the day Specimen Anatomical Collection Method Collection Time Receive d Time (Source) Location / / Volume Laterality Blood specimen 08/08/2017 8:02 AM 018 8:02 (specimen) EST AM EST Yonathan Smith MD POINT OF CARE TEST ORDERABLE S Performing Organization Address City/[facility]/[place] [address] (ABNORMAL) APTT (08/08/2017 4:51 AM EST) athologist Signature PTT >160 25 - 35 [facility] (Critical) sec [facility] LABORATORY Comment: Called by: HOWARD, [...] Organization Address City/State/ZIP [place] [address] (ABNORMAL) Differential, Automated (08/08/2017 4:51 AM EST) [facility] gist Method Time Signature Neutrophils % 77.9 % [facility] LABORATORY Neutr Abs (ANC) 8.17 (H) 1.70 - [facility] 6.10 [facility] x10(3)/[facility] LABORATORY Lymphocytes % 10.3 % [facility] LABORATORY Lymphocytes Abs 1.1 0.9 - 3.2 [facility] x10(3)/[facility] LABORATORY Monocytes % 7.0 % [facility] LABORATORY Monocyte Abs 0.7 0.3 - 0.9 [facility] x10(3)/[facility] LABORATORY Eosinophils % 3.6 % [facility] LABORATORY Eosinophils Abs 0.4 0.0 - 0.4 [facility] x10(3)/[facility] LABORATORY Basophils % 0.5 % [facility] LABORATORY Basophils Abs 0.0 0.0 - 0.1 [facility] x10(3)/[facility] LABORATORY Immature Gran % 0.70 % [facility] [...] Address City/State/ZIP Code Phon e Number [address] (ABNORMAL) Hemogram (08/08/2017 4:51 AM EST) Analysis Performed At Patho logist Time Signature WBC 10.5 (H) 4.0 - 9.5 [facility] x[facility](3[facility] LABORATORY RBC 3.27 (L) 4.58 - [place] 5.54 [facility] x10(6)/[facility] LABORATORY Hemoglobin 9.3 (L) 13.7 - [facility] 16.5 gm/dL [facility] LABORATORY Hematocrit 30.3 (L) 40.5 - [facility] 48.5 % [facility] LABORATORY MCV 92.7 82.9 - [facility] 93.1 [facility] LABORATORY MCH 28.4 27.5 - [place] 32.1 pg [facility] LABORATORY MCHC 30.7 (L) 32.0 - [place] 35.7 gm/dL [facility] LABORATORY Platelets 252 145 - 357 [facility] x10(3)/[facility] LABORATORY RDWSD 54.6 (H) 36.0 - [place] 45.0 [facility] LABORATORY RDWCV 16.2 (H) 11.4 - [facility] RYAN 13.8 % [facility] LABORATORY MPV 9.1 7.6 - 12.9 [facility] LABORATORY nRBC % Auto 0.0 % [facility] LABORATORY nRBC Abs Auto 0.000 0.000 - [place] 0.000 [facility] x10(3)/[facility] LABORATORY Specimen Anatomical Collection Method Collection Time Receive d Time (Source) Location / / Volume Laterality Blood specimen 08/08/2017 4:51 AM 018 5:14 (specimen) EST AM EST Resulting Agency Comment Spec In Lab Yonathan Smith MD HEMATOLOGY ORDERABLES Performing Organization Address City/State/[place] [address] (ABNORMAL) Prothrombin Time (08/08/2017 [...] Organization Address City/State/[place] [address] (ABNORMAL) Basic Metabolic Panel (non-fasting) (08/08/2017 4:51 AM EST) athologist Signature Glucose Lvl 229 (H) 65 - 199 [facility] mg/dL [facility] LABORATORY Comment: Diabetes: >=200 mg/dL [...] Calcium 7.9 (L) 8.5 - 10.5 mg/dL [facility] LABORATORY Estimated GFR 44 (L) >=60 [facility] LABORATORY Comment: The reported eGFR should be multiplied b y 1.2 for patients. The MDRD is not an appropriate measure o f renal function for patients with body mass extremes or in patients with acute kidney failure. http://Paydiant/DHnkdep http://Paydiant/DHMCnkf Specimen Anatomical Collection Method Collection Time Receive d Time (Source) Location / / Volume Laterality Blood specimen 08/08/2017 4:51 AM 018 5:14 (specimen) EST AM EST Resulting Agency Comment Spec In Lab Yonathan Smith MD CHEMISTRY ORDERABLES Performing Organization Address City/[facility]/ZIP Code Phon e Number [address] POCT Glucose (08/08/2017 4:20 AM EST) athologist Signature POC Glucose 193 65 - 199 [facility] mg/dL [facility] LABORATORY Comment: Supplemental ranges: <140 mg/dL before meals <180 mg/dL all other times of the day Specimen Anatomical Collection Method Collection Time Receive d Time (Source) Location / / Volume Laterality Blood specimen 08/08/2017 4:20 AM 018 4:20 (specimen) EST AM EST Yonathan Smith MD POINT OF CARE TEST ORDERABLE S Performing Organization Address City/[facility]/ZIP Code Phon e Number [address] POCT Glucose (08/07/2017 11:11 PM EST) athologist Signature POC Glucose 124 65 - 199 [facility] mg/dL [facility] LABORATORY Comment: Supplemental ranges: <140 mg/dL before meals <180 mg/dL all other times of the day Specimen Anatomical Collection Method Collection Time Receive d Time (Source) Location / / Volume Laterality Blood specimen 08/07/2017 11:11 8 (specimen) PM EST 11:11 PM EST Yonathan Smith MD POINT OF CARE TEST ORDERABLE S Performing Organization Address City/[facility]/[place] [address] (ABNORMAL) APTT (08/07/2017 10:18 [...] Organization Address City/State/[place] [address] POCT Glucose (08/07/2017 8:10 PM EST) athologist Signature POC Glucose 140 65 - 199 [facility] mg/dL [facility] LABORATORY Comment: Supplemental ranges: <140 mg/dL before meals <180 mg/dL all other times of the day Specimen Anatomical Collection Method Collection Time Receive d Time (Source) Location / / Volume Laterality Blood specimen 08/07/2017 8:10 PM 018 8:10 (specimen) EST PM EST Yonathan Smith MD POINT OF CARE TEST ORDERABLE S Performing Organization Address City/State/[place] [address] POCT Glucose (08/07/2017 5:27 PM EST) athologist Signature POC Glucose 187 65 - 199 [facility] mg/dL [facility] LABORATORY Comment: Supplemental ranges: <140 mg/dL before meals <180 mg/dL all other times of the day Specimen Anatomical Collection Method Collection Time Receive d Time (Source) Location / / Volume Laterality Blood specimen 08/07/2017 5:27 PM 018 5:27 (specimen) EST PM EST Yonathan Smith MD POINT OF CARE TEST ORDERABLE S Performing Organization Address City/[facility]/[place] [address] POCT Glucose (08/07/2017 3:29 PM EST) athologist Signature POC Glucose 86 65 - 199 [facility] mg/dL [facility] LABORATORY Comment: Supplemental ranges: <140 mg/dL before meals <180 mg/dL all other times of the day Specimen Anatomical Collection Method Collection Time Receive d Time (Source) Location / / Volume Laterality Blood specimen 08/07/2017 3:29 PM 018 3:29 (specimen) EST PM EST Yonathan Smith MD POINT OF CARE TEST ORDERABLE S Performing Organization Address [facility] [place] [address] (ABNORMAL) APTT (08/07/2017 2:50 PM EST) athologist [facility] PTT 60 (H) 25 - 35 sec [...] Smith MD HEMATOLOGY ORDERABLES Performing Organization Address City/[facility]/ZIP [facility] [place] [address] (ABNORMAL) POCT Glucose (08/07/2017 2:23 PM EST) athologist Signature POC Glucose 55 (L) 65 - 199 [place] mg/dL [facility] LABORATORY Comment: Supplemental ranges: <140 mg/dL before meals <180 mg/dL all other times of the day Specimen Anatomical Collection Method Collection Time Receive d Time (Source) Location / / Volume Laterality Blood specimen 08/07/2017 2:23 PM 018 2:23 (specimen) EST PM EST Yonathan Smith MD POINT OF CARE TEST ORDERABLE S Performing Organization Address City/State/ZIP Code Phon e Number [address] POCT Glucose (08/07/2017 12:08 PM EST) P athologist Signature POC Glucose 77 65 - 199 [facility] mg/dL [facility] LABORATORY Comment: Supplemental ranges: <140 mg/dL before meals <180 mg/dL all other times of the day Specimen Anatomical Collection Method Collection Time Receive d Time (Source) Location / / Volume Laterality Blood specimen 08/07/2017 12:08 8 (specimen) PM EST 12:08 PM EST Yonathan Smith MD POINT OF CARE TEST ORDERABLE S Performing Organization Address City/State/[place] [address] (ABNORMAL) Differential, Automated (08/07/2017 7:30 AM EST) Patholo gist Method Time Signature Neutrophils % 73.8 % [facility] LABORATORY Neutr Abs (ANC) 7.17 (H) 1.70 - [facility] 6.10 [facility] x10(3)/[facility] L LABORATORY Lymphocytes % 12.2 % [facility] LABORATORY Lymphocytes Abs 1.2 0.9 - 3.2 [facility] x10(3)/[facility] LABORATORY Monocytes % 9.0 % [facility] LABORATORY Monocyte Abs 0.9 0.3 - 0.9 [facility] x10(3)/[facility] LABORATORY Eosinophils % 3.9 % [facility] LABORATORY Eosinophils Abs 0.4 0.0 - 0.4 [facility] x10(3)/[facility] LABORATORY Basophils % 0.6 % [facility] LABORATORY Basophils Abs 0.1 0.0 - 0.1 [facility] x10(3)/[facility] LABORATORY Immature Gran % 0.50 % [facility] [...] City/State/ZIP Code Phon e Number [place] [id number] HOSPITAL LABORATORY Drive (ABNORMAL) Hemogram (08/07/2017 7:30 AM EST) Analysis Performed At Patho logist Time Signature WBC 9.7 (H) 4.0 - 9.5 [facility] x10(3)/[facility] LABORATORY RBC 3.54 (L) 4.58 - [facility] 5.54 [facility] x10(6)/[facility] LABORATORY Hemoglobin 9.9 (L) 13.7 - [facility] 16.5 gm/dL [facility] LABORATORY Hematocrit 32.3 (L) 40.5 - [facility] 48.5 % [facility] LABORATORY MCV 91.2 82.9 - [facility] 93.1 [facility] LABORATORY MCH 28.0 27.5 - [facility] 32.1 pg [facility] LABORATORY MCHC 30.7 (L) 32.0 - [facility] 35.7 gm/dL [facility] LABORATORY Platelets 312 145 - 357 [facility] x10(3)/[facility] LABORATORY RDWSD 53.2 (H) 36.0 - [facility] LAB[facility] RDWCV 16.0 (H) 11.4 - [facility] 13.8 % [facility] LABORATORY MPV 8.9 7.6 - 12.9 [facility] LABORATORY nRBC % Auto 0.0 % [facility] LABORATORY nRBC Abs Auto 0.000 0.000 - [facility] 0.000 [facility] x10(3)/[facility] LABORATORY Specimen Anatomical Collection Method Collection Time Receive d Time (Source) Location / / Volume Laterality Blood specimen 08/07/2017 7:30 AM 018 7:45 (specimen) EST AM EST Resulting Agency Comment Spec In Lab Yonathan Smith MD HEMATOLOGY ORDERABLES Performing Organization Address City/State/ZIP [place] [address] (ABNORMAL) Basic Metabolic Panel (non-fasting) (08/07/2017 7:30 AM EST) athologist Signature Glucose Lvl 80 65 - 199 [facility] mg/dL [facility] LABORATORY Comment: Diabetes: >=200 mg/dL [...] [facility] LABORATORY Estimated GFR 59 (L) >=60 [facility] LABORATORY Comment: The reported eGFR should be multiplied b y 1.2 for patients. The MDRD is not an appropriate measure o f renal function for patients with body mass extremes or in patients with acute kidney failure. http://Paydiant/DHnkdep http://Paydiant/[facility] ALTUSnkf Specimen Anatomical Collection Method Collection Time Receive d Time (Source) Location / / Volume Laterality Blood specimen 08/07/2017 7:30 AM 018 7:45 (specimen) EST AM EST Resulting Agency Comment Spec In Lab Yonathan Smith MD CHEMISTRY ORDERABLES Performing Organization Address City/[facility]/ZIP [facility] Phon e Number [address] POCT Glucose (08/07/2017 7:27 AM EST) athologist Signature POC Glucose 81 65 - 199 [facility] mg/dL [facility] LABORATORY Comment: Supplemental ranges: <140 mg/dL before meals <180 mg/dL all other times of the day Specimen Anatomical Collection Method Collection Time Receive d Time (Source) Location / / Volume Laterality Blood specimen 08/07/2017 7:27 AM 018 7:27 (specimen) EST AM EST Yonathan Smith MD POINT OF CARE TEST ORDERABLE S Performing Organization Address City/[facility] Phon e Number [address] APTT (08/07/2017 7:04 AM [...] Organization Address City/State/[place] [address] (ABNORMAL) Prothrombin Time (08/07/2017 [...] Organization Address City/State/[place] [address] POCT Glucose (08/07/2017 4:03 AM EST) athologist Signature POC Glucose 93 65 - 199 [facility] mg/dL [facility] LABORATORY Comment: Supplemental ranges: <140 mg/dL before meals <180 mg/dL all other times of the day Specimen Anatomical Collection Method Collection Time Receive d Time (Source) Location / / Volume Laterality Blood specimen 08/07/2017 4:03 AM 018 4:03 (specimen) EST AM EST Yonathan Smith MD POINT OF CARE TEST ORDERABLE S Performing Organization Address City/State/[place] [address] POCT Glucose (08/07/2017 12:04 AM EST) athologist Signature POC Glucose 107 65 - 199 [facility] mg/dL [facility] LABORATORY Comment: Supplemental ranges: <140 mg/dL before meals <180 mg/dL all other times of the day Specimen Anatomical Collection Method Collection Time Receive d Time (Source) Location / / Volume Laterality Blood specimen 08/07/2017 12:04 8 (specimen) AM EST 12:04 AM EST Yonathan Smith MD POINT OF CARE TEST ORDERABLE S Performing Organization Address City/[facility]/ZIP Code Phon e Number [address] POCT Glucose (08/06/2017 7:56 PM EST) P athologist Signature POC Glucose 178 65 - 199 [facility] mg/dL [facility] LABORATORY Comment: Supplemental ranges: <140 mg/dL before meals <180 mg/dL all other times of the day Specimen Anatomical Collection Method Collection Time Receive d Time (Source) Location / / Volume Laterality Blood specimen 08/06/2017 7:56 PM 018 7:56 (specimen) EST PM EST Yonathan Smith MD POINT OF CARE TEST ORDERABLE S Performing Organization Address City/State/ZIP Code Phon e Number [address] [id number] (08/06/2017 2:32 PM EST) Component Value Ref Test Analysis Performed At Patholo gist Range Method Time Signature VB Text Department: Vascular Surgery Lab VASCUBASE Report Patient: [id number] (GREGORY HOANG) CPT: [id number] ICD10: I99.8 Referring Physician: YONATHAN SMITH ?? [...] Chiquis Mcgrath RN) 08 (Given - Provider: Doyr Truong RN) 40 mg, Oral, DAILY, First dose on 07/12 at 1700, Until Discontinued, Routine insulin glargine VIAL injection 15 Units 2009 (Given - Provider: Henrique Mraks RN) 2025 (Given - Provider: Mira Truong [...] Mira Truong, RN) 0800 (Given - Provider: oDry Truong RN) 400 mg, Oral, 2 TIMES [...] Chiquis Mcgrath RN)2024 (Given - Provider: Mira Troung, RN) 0800 (Given - Provider: Dory Truong, [...]
Routine documented in this encounter Care Teams Piledriver Carpenter Relationship Specialty Start Date End Date Lovely Vicente MD PCP - General 04/16/[address] [place] [address] [address] [place] [address] documented as of this encounter
--- OUTSIDE RECORDS SUMMARY | 2022-04-13 08:11 | XMS_ITS | Encounter Summary ---
:1945 Author Organization [facility] [place] [address] Care Team Providers Name Role Phone Lovely Vicente MD Primary Care Provider Encounter Details Date Type Department Care Team Description 08/09/2017 Clinical Support Same Day at [facility] Canceled (D-SCHED ERROR [facility] / CORRECT ION ) [place] [address] Social History Tobacco Use Types Packs/Day [...] Dolan MD [facility] [place], [place] [address] (Wo rk) 05/28/2022 Laboratory Appointment Lab 05/28/2022 Office Visit Cardiology Zulma Dolan MD [facility] [place] [address] Liz Poole PA [facility] [place] [address] 06/10/2022 Office Visit Dermatology Laura Scherer MD [facility] [address] [place], [place] [address] (Wo rk) documented as of this encounter Procedures Procedure Name Priority Date/Time Associated Diagnosis Comme nts MANAGER ROOM 08/09/2017 12:00 AM Resul ts for this SCAN EST procedure are i n the results section. documented in this encounter Results SCAN DOC: MANAGER ROOM (08/09/2017 12:00 AM EST) Narrative 08/09/2017 12:00 AM EST This result has an attachment that is no t available. Ordered by an unspecified provider. Scanning Provider MEDIA MGR SCAN EXT ORDR/RSLT documented in this encounter Visit Diagnoses Not on filedocumented in this encounter Care Teams Accounts Receivable Administrator Relationship Specialty Start Date End Date Lovely Vicente MD PCP - General 04/16/[address] [place] [address] documented as of this encounter
--- OUTSIDE RECORDS SUMMARY | 2022-04-13 08:12 | XMS_ITS | Encounter Summary ---
:1945 Author Organization [facility] [place] [address] Care Team Providers Name Role Phone Lovely Vicente MD Primary Care Provider Encounter Details Date Type Department Care Team Description 08/06/2017 Orders Only [facility] Surgery [place] [facility] [place] APRN Ischemia of foot [facility] [place] [address] VASCULAR SURGERY [phone] [place], [place] [address] (Wo rk) Social History Tobacco [...] MD [facility] [place], [place] [address] (Wo rk) 05/28/2022 Laboratory Appointment Lab 05/28/2022 Office Visit Cardiology Zulma Dolan MD [facility] [place] [address] Liz Poole PA [facility] [place] [address] 06/10/2022 Office Visit Dermatology Laura Scherer MD [facility] ER DR [address] [place], [place] [address] (Wo rk) documented as [...] 444 ms MUSE SYSTEM (Bezet) Calculated P [place] 44 degrees MUSE SYSTEM Calculated R [place] -31 degrees MUSE SYSTEM Calculated T [place] 106 degrees MUSE SYSTEM INTERPRETATION Normal sinus [...] (L) 20 - 40 [place] mg/dL [facility] LABORATORY Comment: Prealbumin levels are [...] Organization Address City/State/[place] [address] (ABNORMAL) Basic Metabolic Panel (non-fasting) (08/06/2017 12:32 PM EST) athologist Signature Glucose Lvl 92 65 - 199 [facility] mg/dL [facility] LABORATORY Comment: Diabetes: [...] CENTER LABORATORY Estimated GFR 53 (L) >=60 [facility] LABORATORY Comment: The reported eGFR should be multiplied b y 1.2 for patients. The MDRD is not an appropriate measure o f renal function for patients with body mass extremes or in patients with acute kidney failure. http://Disqus/DHnkdep http://Disqus/DHMCnkf Specimen Anatomical Collection Method Collection Time Receive d Time (Source) Location / / Volume Laterality Blood specimen 08/06/2017 12:32 8 1:15 (specimen) PM EST PM EST Resulting Agency Comment Spec In Lab Arik Clement MD CHEMISTRY ORDERABLES Performing Organization Address City/State/[place] [address] (ABNORMAL) Hemogram (08/06/2017 12:32 PM EST) Analysis Performed At Patho logist Time Signature WBC 11.8 (H) 4.0 - 9.5 [facility] x10(3)/[facility] LABORATORY RBC 3.49 (L) 4.58 - [facility] 5.54 [facility] x10(6)/[facility] LABORATORY Hemoglobin 9.9 (L) 13.7 - [facility] 16.5 gm/dL [facility] LABORATORY Hematocrit 32.0 (L) 40.5 - [facility] 48.5 % [facility] LABORATORY MCV 91.7 82.9 - [facility] 93.1 [facility] LABORATORY MCH 28.4 27.5 - [facility] 32.1 pg [facility] LABORATORY MCHC 30.9 (L) 32.0 - [facility] 35.[facility] gm/dL [facility] LABORATORY Platelets 326 145 - 357 [facility] x10(3)/[facility] LABORATORY RDWSD 53.4 (H) 36.0 - [facility] 45.0 [facility] LABORATORY RDWCV 16.0 (H) 11.4 - [facility] 13.8 % [facility] LABORATORY MPV 9.1 7.6 - 12.9 [facility] LABORATORY nRBC % Auto 0.0 % [facility] LABORATORY nRBC Abs Auto 0.000 0.000 - [facility] 0.000 [facility] x10(3)/[facility] LABORATORY Specimen Anatomical Collection Method Collection Time Receive d Time (Source) Location / / Volume Laterality Blood specimen 08/06/2017 12:32 8 1:15 (specimen) PM EST PM EST Resulting Agency Comment Spec In Lab Arik Clement MD HEMATOLOGY ORDERABLES Performing Organization Address City/State/[place] [address] documented in this encounter Visit Diagnoses Diagnosis Ischemia of foot Unspecified circulatory system disorder documented in this encounter Care Teams Filing And Polishing Supervisor Relationship Specialty Start Date End Date Lovely Vicetne MD PCP - General 04/16/[address] [place] [address] documented as of this encounter
--- OUTSIDE RECORDS SUMMARY | 2022-04-13 08:12 | XMS_ITS | Encounter Summary ---
:1945 Author Organization [facility] Address [facility] [place] [address] Care Team Providers Name Role Phone Lovely Vicente MD Primary Care Provider Reason for Visit Auth/Cert Specialty Diagnoses / Procedures Referred By Contact Refer red To Contact Diagnoses Critical lower limb ischemia CELLULITIS RT FOOT Procedures EMERGENCY Referral ID Status Reason Start Date Expiration Date Visits Requ ested Visits Authorized [id number] 1 1 Encounter Details Date Type Department Care Team Description 08/04/2017 Laboratory Lab 3L Barbara Cardiomyopathy, unspecified type; Appointment [facility] Systolic congestive heart failure, unspecified congestive heart failure chronicity; Hospital Coronary artery rupture; [facility] Ischemic cardiomyopathy; Drive Atherosclerosis of [place] co ronary artery, angina presence unspecified, unspecified whether [place] or transplanted heart; [place], [place] Essential hyper tension, malignant; [id number] 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, unspecified intermediate designer insulin use status [phone] Social History Tobacco Use Types Packs/Day Years [...] MD [facility] [address] [place] [address] (Wo rk) 05/28/2022 Laboratory Appointment Lab 05/28/2022 Office Visit Cardiology Zulma Dolan MD [facility] [place] [address] Liz Poole PA [facility] [place] [address] 06/10/2022 Office Visit Dermatology Laura Scherer MD [facility] ER [address] [place], [place] [address] (Wo rk) documented as of this encounter Procedures Procedure Name Priority Date/Time Associated Diagnosis Comme nts HEMOGRAM Routine 08/04/2017 12:55 Essential Results for this PM EST hypertension, procedure are in malignant the results section. PROTHROMBIN TIME Routine 08/04/2017 12:55 Coronary artery Resu lts for this PM EST rupture procedure are in Ischemic the results cardiomyopathy section. Atherosclerosis of [place] coronary artery, angina presence unspecified, unspecified whether [place] or transplanted heart URIC ACID Routine 08/04/2017 [...] Signature Uric Acid 7.1 3.5 - 8.5 [facility]dL [facility] Specimen Anatomical Collection Method Collection Time Receive d Time (Source) Location / / Volume Laterality Blood specimen 08/04/2017 12:55 8 1:01 (specimen) PM EST PM EST Resulting Agency Comment Spec In Lab Lovely Vicente MD CHEMISTRY ORDERABLES Performing Organization Address City/[facility]/[place] [address] (ABNORMAL) Hemogram (08/04/2017 12:55 PM EST) Analysis Performed At Patho logist Time Signature WBC 15.8 (H) 4.0 - 9.5 [facility] x[facility](3[facility] LABORATORY RBC 3.48 (L) 4.58 - [facility] 5.54 [facility] x10(6)/[facility] LABORATORY Hemoglobin 9.9 (L) 13.7 - [facility] 16.5 gm/dL [facility] Hematocrit 31.4 (L) 40.5 - [facility] 48.5 % [facility] MCV 90.2 82.9 - [facility] 93.1 [facility] LABORATORY MCH 28.4 27.5 - [facility] 32.1 pg [facility] MCHC 31.5 (L) 32.0 - [facility] 35.7 gm/dL [facility] Platelets 310 145 - 357 [facility] x10(3)/[facility] LABORATORY RDWSD 51.8 (H) 36.0 - [facility] 45.0 [facility] LABORATORY RDWCV 15.8 (H) 11.4 - [facility] 13.8 % [facility] MPV 8.9 7.6 - 12.9 [facility] LABORATORY nRBC % Auto 0.0 % [facility] LABORATORY nRBC Abs Auto 0.000 0.000 - [facility] 0.000 [facility] x10(3)/[facility] LABORATORY Specimen Anatomical Collection Method Collection Time Receive d Time (Source) Location / / Volume Laterality Blood specimen 08/04/2017 12:55 8 1:01 (specimen) PM EST PM EST Resulting Agency Comment Spec In Lab Lovely Vicente MD HEMATOLOGY ORDERABLES Performing Organization Address City/State/[place] [address] (ABNORMAL) Comprehensive metabolic panel (non-fasting) (08/04/2017 12:55 PM EST) athologist Signature Glucose Lvl 208 (H) 65 - 199 [facility] mg/dL [facility] Comment: [...] or in patients with acute kidney failure. http://Virtual 3-D Display for Smartphones/DHnkdep http://[employer] Smartphones/DHMCnkf Specimen Anatomical Collection Method Collection Time Receive d Time (Source) Location / / Volume Laterality Blood specimen 08/04/2017 12:55 8 1:01 (specimen) PM EST PM EST Resulting Agency Comment Spec In Lab Lovely Vicente MD CHEMISTRY ORDERABLES Performing Organization Address City/State/ZIP Code Phon e Number [place] [id number] (ABNORMAL) Hemoglobin A1c (08/04/2017 12:55 PM EST) Analysis Performed At Patho logist Time Signature Hemoglobin A1C 6.2 (H) 4.3 - 5.6 [facility] [...] [id number] Est Avg Gluc See note mg/dL [place] [...] with hemoglobinopathies. Additional resources are available on [facility] website. Macario HAMMOND, Ruthann J, Deysi R, et al. ??Tr anslating the A1C assay into estimated average glucose values. ??Diabetes Care 2008:31(8):2156-7799. Specimen Anatomical Collection Method Collection Time Receive d Time (Source) Location / / Volume Laterality Blood specimen 08/04/2017 12:55 8 1:01 (specimen) PM EST PM EST Resulting Agency Comment Spec In Lab Lovely Vicente MD CHEMISTRY ORDERABLES Performing Organization Address [facility] [place] [address] (ABNORMAL) Prothrombin Time (08/04/2017 [...] Vicente MD HEMATOLOGY ORDERABLES Performing Organization Address [facility] [place] [address] (ABNORMAL) pro-Brain Natriuretic Peptide (08/04/2017 12:55 PM EST) P athologist Signature ProBNP 3,133 (H) <=125 [facility] pg/mL [facility] Specimen Anatomical Collection Method Collection Time Receive d Time (Source) Location / / Volume Laterality Blood specimen 08/04/2017 12:55 8 1:01 (specimen) PM EST PM EST Resulting Agency Comment Spec In Lab Danette Maxwell APRN CHEMISTRY ORDERABLES Performing Organization Address City/State/[place] [address] documented in this encounter Visit Diagnoses Diagnosis Cardiomyopathy, unspecified type Systolic congestive heart failure, unspe cified congestive heart failure chronicity Coronary artery rupture Acute myocardial infarction, unspecified site, episode of care unspecified Ischemic cardiomyopathy Other specified forms of chronic ischemi c heart disease Atherosclerosis of [place] coronary arter y, angina presence unspecified, unspecified whether [place] or transplanted heart Essential hypertension, malignant Diabetes mellitus due to underlying cond ition with diabetic nephropathy, unspecified intermediate designer insulin use status documented in this encounter Care Teams Double Needle Operator Relationship Specialty Start Date End Date Lovely Vicente MD PCP - General 04/16/[address] [place] [address] documented as of this encounter
--- OUTSIDE RECORDS SUMMARY | 2022-04-13 08:12 | XMS_ITS | Encounter Summary ---
:1945 Author Organization [place] [address] Care Team Providers Name Role Phone Lovely Vicente MD Primary Care Provider Reason for Visit Reason Comments Foot Ulcer WOUND CHECK Auth/Cert Specialty Diagnoses / Procedures Referred By Contact Refer red To Contact Diagnoses Critical lower limb ischemia CELLULITIS RT FOOT Procedures EMERGENCY Referral ID Status Reason Start Date Expiration Date Visits Requ ested Visits Authorized [id number] 1 1 Encounter Details Date Type Department Care Team Description 08/06/2017 [facility] ischemia [facility] [address] [place] VASCULAR SURGERY [phone] [place] [address] [phone] Social History Tobacco Use Types Packs/Day Years [...] Smith MD - 08/06/2017 1:00 PM EST [facility] staff: 1. RIGHT leg CLI Interval [...] Dolan MD [facility] [address] [place], [place] [address] (Wo ) 05/28/2022 Laboratory Appointment Lab 05/28/2022 Office Visit Cardiology Zulma Dolan MD [facility] [place] [address] Liz Poole PA [facility] [place] [address] 06/10/2022 Office Visit Dermatology Laura Scherer MD [facility] ER [address] [place], [place] [address] (Wo rk) documented as of this encounter Visit Diagnoses Diagnosis Critical lower limb ischemia Unspecified circulatory system disorder documented in this encounter Care Teams Road Machine Operator Relationship Specialty Start Date End Date Lovely Vicente MD PCP - General 04/16/[address] [place], [place] [address] documented as of this encounter
--- OUTSIDE RECORDS SUMMARY | 2022-04-13 08:12 | XMS_ITS | Encounter Summary ---
:1945 Author Organization [facility] [place] [address] Care Team Providers Name Role Phone Lovely Vciente MD Primary Care Provider Reason for Visit Auth/Cert Specialty Diagnoses / Procedures Referred By Contact Refer red To Contact Diagnoses Critical lower limb ischemia CELLULITIS RT FOOT Procedures EMERGENCY Referral ID Status Reason Start Date Expiration Date Visits Requ ested Visits Authorized [id number] 1 1 Encounter Details Date Type Department Care Team Description 08/06/2017 Clinical Support [place] [facility] [place]schemia of foot [facility] [place] [address] Social History Tobacco Use Types Packs/Day [...] noother symptoms except severe right foot pain. [facility] clinic called as pt on [...] Dolan MD [facility] [address] [place], [place] [address] (Wo rk) 05/28/2022 Laboratory Appointment Lab 05/28/2022 Office Visit Cardiology Zulma Dolan MD [facility] [place] [address] Liz Poole PA [facility] [place] [address] 06/10/2022 Office Visit Dermatology Laura Scherer MD [facility] [address] [place], [place] [address] (Wo rk) documented as of [...] 444 ms MUSE SYSTEM (Bezet) Calculated P [place] 44 degrees MUSE SYSTEM Calculated R [place] -31 degrees MUSE SYSTEM Calculated T [place] 106 degrees MUSE SYSTEM INTERPRETATION Normal sinus [...] documented in this encounter Care Teams Executive Pastry Chef Relationship Specialty Start Date End Date Lovely Vicente MD PCP - General 04/16/[address] [place] [address] documented as of this encounter
--- OUTSIDE RECORDS SUMMARY | 2022-04-13 08:12 | XMS_ITS | Encounter Summary ---
:1945 Author Organization [facility] [place] [address] Care Team Providers Name Role Phone Lovely Vicente MD Primary Care Provider Reason for Visit Auth/Cert Specialty Diagnoses / Procedures Referred By Contact Refer red To Contact Diagnoses Critical lower limb ischemia CELLULITIS RT FOOT Procedures EMERGENCY Referral ID Status Reason Start Date Expiration Date Visits Requ ested Visits Authorized [id number] 1 1 Encounter Details Date Type Department Care Team Description 08/04/2017 Office Visit Cardiology at [facility] Danette Maxwell Incisional pain; [facility] A, BANANA LOADER Ischemic cardiomyopathy; 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 [...] [facility] [address] [place], [place] [address] (Wo rk) 05/28/2022 Laboratory Appointment Lab 05/28/2022 Office Visit Cardiology Zulma Dolan MD [facility] [place] [address] Liz Poole PA [facility] [place] [address] 06/10/2022 Office Visit Dermatology Laura Scherer MD [facility] DR [address] [place], [place] [address] (Wo rk) documented as of [...] sensation documented in this encounter Care Teams Tailings Man Relationship Specialty Start Date End Date Lovely Vicente MD PCP - General 04/16/[address] [place] [address] documented as of this encounter
--- OUTSIDE RECORDS SUMMARY | 2022-04-13 08:12 | XMS_ITS | Encounter Summary ---
:1945 [place] [address] Care Team Providers Name Role Phone Lovely Vicente MD Primary Care Provider Encounter Details Date Type Department Care Team Description 08/05/2017 Notes Only Vascular Surgery at [facility] [place], [place] [address] VASCULAR SURGERY [phone] [place], [place] [address] (Wo rk) Social History [...] Zulma Dolan MD [facility] [place], [place] [address] (Wo rk) 05/28/2022 Laboratory Appointment Lab 05/28/2022 Office Visit Cardiology Zulma Dolan MD [facility] [place] [address] Liz Poole PA [facility] [place] [address] 06/10/2022 Office Visit Dermatology Laura Scherer MD [facility] [address] [place], [place] [address] (Wo rk) documented as of this encounter Visit Diagnoses Not on filedocumented in this encounter Care Teams Supervisor Salvage Relationship Specialty Start Date End Date Lovely Vicente MD PCP - General 04/16/[address] [facility] [address] [place] [address] documented as of this encounter
--- OUTSIDE RECORDS SUMMARY | 2022-04-13 08:12 | XMS_ITS | Encounter Summary ---
:1945 Author Organization [facility] [place] [address] Care Team Providers Name Role Phone Lovely Vicente MD Primary Care Provider Reason for Visit Auth/Cert Specialty Diagnoses / Procedures Referred By Contact Refer red To Contact Diagnoses Critical lower limb ischemia CELLULITIS RT FOOT Procedures EMERGENCY Referral ID Status Reason Start Date Expiration Date Visits Requ ested Visits Authorized [id number] 1 1 Encounter Details Date Type Department Care Team Description 08/04/2017 Hospital Encounter XRay at [facility] Danette Maxwell Incisional pain [address] [place] [address] Dr Gomes, AUTOMOBILE BODY REPAIR SUPERVISOR [facility] [place] [address] CARDIOLOGY [place], [place] [address] Social History Tobacco Use [...] Zulma Dolan MD [facility] [place], [place] [address] (Wo rk) 05/28/2022 Laboratory Appointment Lab 05/28/2022 Office Visit Cardiology Zulma Dolan MD [facility] [place] [address] Liz Poole PA [facility] [place] [address] 06/10/2022 Office Visit Dermatology Laura Scherer MD [facility] DR [address] [place], [place] [address] (Wo rk) documented as [...] original. EXAMINATION: XR CHEST PA AND LATERAL (ParentingInformer) CLINICAL HISTORY: Checking sternal stabi lity/assess wires [...] Daniele gutiérrez 08/04/2017 4:13 PM Danette Maxwell AUTOMOBILE BODY REPAIR SUPERVISOR IMG DX ORDERABLES documented in this encounter Visit Diagnoses Diagnosis Incisional pain Disturbance of skin sensation documented in this encounter Care Teams Global Clinical Leader Relationship Specialty Start Date End Date Lovely Vicente MD PCP - General 04/16/[address] [place] [address] documented as of this encounter
--- OUTSIDE RECORDS SUMMARY | 2022-04-13 08:12 | XMS_ITS | Encounter Summary ---
:1945 Author Organization [facility] [place] [address] Care Team Providers Name Role Phone Lovely Vicente MD Primary Care Provider Reason for Visit Auth/Cert Specialty Diagnoses / Procedures Referred By Contact Refer red To Contact Diagnoses Critical lower limb ischemia CELLULITIS RT FOOT Procedures EMERGENCY Referral ID Status Reason Start Date Expiration Date Visits Requ ested Visits Authorized [id number] 1 1 Encounter Details Date Type Department Care Team Description 08/09/2017 Surgery Main Operating Room Yonathan Smith AM PUTATION, Mary Hitchcock MD TRANSMETATARSAL ([facility] 12.71) 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 Patient [...] Dorsalis Pedis (Ankle) Artery ?132 ? 0.94 ??Labette-Biphasic ? Posterior Tibial (Ankle) Artery ??154 ? 1.10 ??Labette-Biphasic ? Fourth Toe ? 67 ?0.48 ?? [...] For any problems or questions please call [phone] ZELDA Smith, scalp specialist Nurse Clinician For issues on weeknights after 5pm and weekends please call [phone] and ask for the Vascular Fellow business operations director. General Instructions None Future Appointments and Orders Future Appointments Provider Department Dept Phone 08/26/2017 4:00 PM Aurelia Rivera PA Vascular Surgery at [place] [phone] 09/07/2017 3:00 PM LAB, THREE L Lab 3L [facility] [phone] 09/07/2017 4:00 PM Luz Prescott MD Endocrinology at [place] [phone] 09/09/2017 8:00 AM Barbra Soares APRN Pain Management at [place] [phone] Please bring a list of your current [...] For any problems or questions please call [phone] ZELDA Smith, scalp specialist Nurse Clinician For issues on weeknights after 5pm and weekends please call [phone] and ask for the Vascular Fellow business operations director. documented in this encounter Medications at [...] Destination: [facility] ([facility]) [address] [id number] Transportation: with (at bedside) Time of Discharge: by 12 noon Level of Care: swing Patient Aware: yes Family Notified: yes Md to call report to: Yissel Quintero VETERAN APPEALS REVIEWER already called RN to call report to: [phone] Shirin Wolf Office of Care Management Pager [phone] Shirin Wolf RN - 08/16/2017 10:50 AM EST [facility] has offered pt swing bed. Pt and accept bed. will transport via car. VETERAN APPEALS REVIEWER Yissel Quintero aware; d/c paperwork will be completed by 12 noon. [facility] requests pt arrival by 1400 today; VETERAN APPEALS REVIEWER, RN, and family aware. VETERAN APPEALS REVIEWER called [facility] and was told that they prefer pt to arrive with wound vac dressing applied but clamped. VETERAN APPEALS REVIEWER applied new wound vac dressing. RN has [facility] number to call report. PASSR completed; VETERAN APPEALS REVIEWER paged to request provider signature in highlighted space. Indigo from [facility] notified via email that home wound vac now cancelled; [facility] has picked up from room and order cancelled. Packet started and provided to community resource consultant. Medicare important message explained to patient, patient signed. Copy provided to patient and signature page to OCM for inclusion in pt EMR. L Radha Powers Yoselin - 08/16/2017 10:34 AM EST Office of Care Management/Key Ringer Patient Name: Gregory Hoang : 1945 Patient has been offered a swing bed at [facility]. The patient will be transported by private transportation. No MD to MD report necessary Please call Nursing Report to [phone], ask for public relations director. Info to accompany patient: Narcotic Prescriptions Copies of Medication Administration Records and IV sheets for past 10 days. Plan: Key Ringer will be available to the patient and Rhinologist-RN and/or Material Cutter for further assistance. Patient will be discharged to: [address] [id number] Radha Powers, Key Ringer Mira Turong, VAMSI - 08/15/2017 10:05 PM EST [address] Flores to ask if he wanted to hold metoprolol dose. BP 95/58. OK to hold this dose Courtney Brito - 08/15/2017 3:26 PM EST Office of Care Management(OCM)/Key Ringer(RS)/ D/C Planning re : Patient is medically [...] status. 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 Vac [...] would like information about patient's referral to: [facility] PHONE: [phone] FAX: [phone] CM spoke with RS who said that [...] rehab. Await recommendations from PT. Covering pager #[phone]. 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 Mail Processor Kaitlin Saha, RN Pager #[phone] Payam Rosales - 08/13/2017 2:37 PM EST Tile Sorter Encounter Note Patient Name: Gregory Hoang : [id number] MR#: [id number] Admit Date: 08/06/2017 1:41 PM Hospital Day 7 days Narrative: Visited to introduce and assess acceptance of Tile Sorter services. Pt was awake, alert, oriented and in chair and family was there. Assessment:Patient coping positively with stresses of illness/hospitalization at this time. Pt says that he is hoping to get better and his family was there. Pt says that he has family care and supportand taking one day at time. Intervention and Outcome: Provided emotional support and encouraging presence. 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 A letter describing our affiliations was reviewed with them and theywere educated about their right to choose where referrals are placed. Patient requests referral to [facility]. PHONE: [phone] FAX: [phone]. And Home NPWT (Negative Pressure Wound Therapy) aka wound vac device made available to pt. Serial # confirmed. Reviewed [facility] Proof of Delivery/Assignment of Benefits Statement(POD/AOB) Form w patient or authorized agent signing on behalf of patient. Copy of POD/AOB provided to pt and other copy faxed to [employer] @ fax# [phone] Expected date of discharge: 08/12/2017. 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. Heparin gtt continues to run. Pt a/ox4. [...] : 1945 AGE 72 y.o. 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 Vascular resident business operations director and will forward result to the team prior to rounds. 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 Patient [...] [facility] Functional Status/Social Hx: Quit smoking [...] left blue toes with CTA showing R TELEPHONE LINEMAN pseudoaneurysm (now thrombosed) and occluded ATs bilaterally. [...] 2.5x80 5. Completion RLE angiogram 6. L TELEPHONE LINEMAN angiogram 7. 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 - L TELEPHONE LINEMAN angriogram demonstrated: High femoral bifurcation over the proximal half of the femoral head. L TELEPHONE LINEMAN access in the distal L TELEPHONE LINEMAN. - Closure device: Mynx Technical Procedure: The [...] for a 45cm 5F Destination. V18 and [place] and QuickCross catheters were used to select [...] 5F. A stationed picture of the L TELEPHONE LINEMAN was performed as the patient was noted to have a very high bifurcation. Access appeared in the distal R TELEPHONE LINEMAN. Closure and sheath removal was performed with [...] PM EST 1440 report called to 5 marilla nurse Tessa RN documented in this encounter [...] sit/sit to supine -- Bed Mobility Goal, Denton Level independent -- Bed Mobility Goal, Date [...] days -- Transfer Training Goal, Activity Type rga-mm-pcyoz/uekeb-fo-zxu -- Transfer Train Goal, Denton Level conditional independence -- Transfer Train Goal, [...] Smith MD - 08/15/2017 6:28 PM EST [facility] Operative Note Patient Name: Gregory Hoang : [id number] MR#: [id number] Case Date: 08/09/2017 Surgeon: Surgeon(s) and Role: [...] 2.5x80 5. Completion RLE angiogram 6. L TELEPHONE LINEMAN angiogram 7. Mynx closure Precautions/Restrictions: fall, sternal [...] other (see comments) (or swing bed) Pager: [phone] BASSAM ELIAS, PT 08/14/2017 Inpatient Physical Therapy [...] to Achieve by discharge Gait Training Goal, Denton Level conditional independence;set up required Gait Training [...] make referrals to. Their choices are: 1- [facility] PHONE: [phone] FAX: [phone] 2- [facility] ([facility]) [address] [place] [address] 3- [facility])([facility]) [address] [place] [address] I have discussed Medicare/Private Insurance [...] RS/CM on Wednesday to follow-up. Covering pager #[phone] for today. Plan of Care - Henrique [...] with additional findings of pseudoaneurysm on R TELEPHONE LINEMAN and bilateral anterior tibial artery occlusions. Was [...] an outpatient once discharged. Have patient call [phone] to set up an appointment. Follow-up: Dermatology will sign-off for now. Please do not hesitate to contact us if you have any questions orconcerns. Impression and Recommendations discussed with primary team on 08/13/2017. Karo Henderson MD Resident in Dermatology Section of Dermatology, Department of Surgery [facility] Pager [phone] Patient seen and evaluated with staff Psychology Teacher: Halima Cordero MD Section of Dermatology [facility] [...] Outcome: Ongoing (Interventions Implemented as Appropriate) 08/12/17 9056 Coping/Psychosocial Plan Of Care Reviewed With patient;spouse [...] 2.5x80 5. Completion RLE angiogram 6. L TELEPHONE LINEMAN angiogram 7. Mynx closure Active Non-Hospital Problems [...] home with home health ([facility] PT&OT) Pager: [phone] YASIR TELLO OT 08/12/2017 Occupational Therapy Rehabilitation [...] 2.5x80 5. Completion RLE angiogram 6. L TELEPHONE LINEMAN angiogram 7. Mynx closure Past Medical History: [...] with 24/7 assistance and maximal services) Pager: [phone] NICHOLAS MORA, PT 08/12/2017 Physical Therapy Rehabilitation [...] sit/sit to supine -- Bed Mobility Goal, Denton Level independent -- Bed Mobility Goal, Outcome Achieved -- goal ongoing Goal: Gait Training Goal Stand Alone Therapy Goal Outcome: Ongoing (Interventions Implemented as Appropriate) 08/11/17 1310 08/12/17 1510 Gait Training Goal Gait Training Goal, Date Established 08/11/17 -- Gait Training Goal, Time to Achieve 5 - 7 days -- Gait Training Goal, Denton Level conditional independence -- Gait Training Goal, [...] days -- Transfer Training Goal, Activity Type kxb-te-kiilo/hcycm-az-iei -- Transfer Train Goal, Denton Level conditional independence -- Transfer Training Goal, [...] Smith MD - 08/11/2017 2:52 PM EST [facility] Operative Note Patient Name: Gregory Hoang : [id number] MR#: [id number] Case Date: 08/11/2017 Surgeon: Surgeon(s) and Role: [...] 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 Completion RLE angiogram 6. L TELEPHONE LINEMAN angiogram 7. Mynx closure He is very [...] Anticipated Discharge Disposition: inpatient rehabilitation facility Pager: [phone] LAWRENCE GONZALEZ, PT 08/11/2017 Physical Therapy Rehabilitation [...] to sit/sit to supine Bed Mobility Goal, Denton Level independent Goal: Gait Training Goal Stand Alone Therapy Goal Outcome: Ongoing (Interventions Implemented as Appropriate) 08/11/17 1310 Gait Training Goal Gait Training Goal, Date Established 08/11/17 Gait Training Goal, Time to Achieve 5 - 7 days Gait Training Goal, Denton Level conditional independence Gait Training Goal, Assist [...] 7 days Transfer Training Goal, Activity Type rer-id-secfd/xxdoi-qj-rzx Transfer Train Goal, Denton Level conditional independence Plan of David DelloAnnetta [...] 04/05/2013 Hospitalizations Within the Past 30 Days: [facility] 07/20/2017 Anticipated Length Of Stay (If known): Expected Length of Hospitalization: 5-7 days2-3 days Current Decision-Making Capacity: Alert and oriented x 4 Advance Care Planning: on file Kisha Hoang [facility] [phone] Current Coping/Education/Information Needs: pt and spouse state [...] Health/Prescription Coverage: Primary Insurance: MEDICARE Secondary Insurance: [employer] [place] Prescription Coverage: See above Preferred Pharmacy: [facility] [address] Other: N/A Primary Care Provider: Lovely Vicente MD [phone] Patient/Caregiver Goals of Treatment: Patient plans to [...] of care planning. Kaitlin Saha RN Pager: [phone] Plan of Care - Melba Jaramillo RN [...] Overview Goal: Plan of Care Review 08/08/17 2994 Coping/Psychosocial Plan Of Care Reviewed With patient [...] 162 Activity Activity Type -- ambulated in mtaos;step/march in place;up in chair Optimize Tissue Perfusion [...] (Interventions Implemented as Appropriate) 08/06/17 1700 08/06/17199908/07/17 3054 Positioning Body Position -- up in chair [...] at bedside and MD TEAM Carrying pager [phone] contacted (via Radio page) and notified of [...] Zulma Dolan MD [facility] [place], [place] [address] (Wo rk) 05/28/2022 Laboratory Appointment Lab 05/28/2022 Office Visit Cardiology Zulma Dolan MD [facility] [place] [address] Liz Poole PA [facility] [place] [address] 06/10/2022 Office Visit Dermatology Laura Scherer MD [facility] [address] [place], [place] [address] (Wo rk) documented as of [...] section. TYPE AND SCREEN Routine 08/09/2017 1:10 ([facility]/CGP/SHANDA) AM [...] 160 65 - 199 [place] mg/dL [facility] Comment: Supplemental ranges: <140 mg/dL before meals <180 mg/dL all other times of the day Specimen Anatomical Collection Method Collection Time Receive d Time (Source) Location / / Volume Laterality Blood specimen 08/16/2017 7:28 AM 018 7:28 (specimen) EST AM EST Yonathan Smith MD POINT OF CARE TEST ORDERABLE S Performing Organization Address City/State/ZIP [place] [address] [facility] [address] (ABNORMAL) Differential, Automated (08/16/2017 5:08 AM EST) [facility] Method Time Signature Neutrophils % 73.9 % [facility] Neutr Abs (ANC) 5.37 1.70 - [facility] 6.10 [facility] x10(3)/[facility] LABORATORY Lymphocytes % 10.1 % [facility] Lymphocytes Abs 0.7 (L) 0.9 - 3.2 [facility] x10(3)/[facility] LABORATORY Monocytes % 10.1 % [facility] Monocyte Abs 0.7 0.3 - 0.9 [facility] x10(3)/[facility] LABORATORY Eosinophils % 5.1 % [facility] Eosinophils Abs 0.4 0.0 - 0.4 [facility] x10(3)/[facility] LABORATORY Basophils % 0.4 % [facility] Basophils Abs 0.0 0.0 - 0.1 [facility] x10(3)/[facility] LABORATORY Immature Gran % 0.40 % [...] Melisa Gran Abs 0.03 0.00 - 0.04 x10(3)/[facility] MAR Y [facility] Specimen Anatomical Collection Method Collection Time Receive d Time (Source) Location / / Volume Laterality Blood specimen 08/16/2017 5:08 AM 018 5:20 (specimen) EST AM EST Resulting Agency Comment Spec In Lab Yonathan Smith MD HEMATOLOGY ORDERABLES Performing Organization Address City/State/ZIP [place] [address] [facility] [address] (ABNORMAL) Hemogram (08/16/2017 5:08 AM EST) Analysis Performed At Patho logist Time Signature WBC 7.3 4.0 - 9.5 [facility] x10(3)/[facility] LABORATORY RBC 3.36 (L) 4.58 - [facility] 5.54 [facility] x10(6)/[facility] LABORATORY Hemoglobin 9.7 (L) 13.7 - [facility] 16.5 gm/dL [facility] Hematocrit 30.3 (L) 40.5 - [facility] 48.5 % [facility] MCV 90.2 82.9 - [facility] 93.1 [facility] LABORATORY MCH 28.9 27.5 - [facility] 32.1 pg [facility] MCHC 32.0 32.0 - [facility] 35.7 gm/dL [facility] Platelets 282 145 - 357 [facility] x10(3)/[facility] LABORATORY RDWSD 53.9 (H) 36.0 - [facility] 45.0 [facility] LABORATORY RDWCV 16.5 (H) 11.4 - [facility] 13.8 % [facility] MPV 9.0 7.6 - 12.9 [facility] LABORATORY nRBC % Auto 0.0 % [facility] nRBC Abs Auto 0.000 0.000 - [facility] 0.000 [facility] x10(3)/[facility] LABORATORY Specimen Anatomical Collection Method Collection Time Receive d Time (Source) Location / / Volume Laterality Blood specimen 08/16/2017 5:08 AM 018 5:20 (specimen) EST AM EST Resulting Agency Comment Spec In Lab Yonathan Smith MD HEMATOLOGY ORDERABLES Performing Organization Address City/State/ZIP [place] [address] (ABNORMAL) Basic Metabolic Panel (non-fasting) (08/16/2017 5:08 AM EST) P athologist Signature Glucose Lvl 141 65 - 199 [facility] mg/dL [facility] Comment: Diabetes: >=200 [...] or in patients with acute kidney failure. [email or web address] [email or web address] Specimen Anatomical Collection Method Collection Time Receive d Time (Source) Location / / Volume Laterality Blood specimen 08/16/2017 5:08 AM 018 5:20 (specimen) EST AM EST Resulting Agency Comment Spec In Lab Yonathan Smith MD CHEMISTRY ORDERABLES Performing Organization Address City/State/ZIP [place] [address] (ABNORMAL) Prothrombin Time (08/16/2017 5:08 AM EST) athologist Signature PT 25.2 (H) 11.8 - 14.0 [facility] LABORATORY INR 2.3 (H) 0.9 [...] City/[facility]/ZIP Code Phon e Number [address] POCT Glucose (08/16/2017 4:09 AM EST) athologist Signature POC Glucose 147 65 - 199 [facility] RYAN mg/dL [facility] Comment: Supplemental ranges: <140 mg/dL before meals <180 mg/dL all other times of the day Specimen Anatomical Collection Method Collection Time Receive d Time (Source) Location / / Volume Laterality Blood specimen 08/16/2017 4:09 AM 018 4:09 (specimen) EST AM EST Yonathan Smith MD POINT OF CARE TEST ORDERABLE S Performing Organization Address City/[facility]/ZIP Code Phon e Number [address] POCT Glucose (08/15/2017 11:56 PM EST) athologist Signature POC Glucose 176 65 - 199 [place] mg/dL [facility] Comment: Supplemental ranges: <140 mg/dL before meals <180 mg/dL all other times of the day Specimen Anatomical Collection Method Collection Time Receive d Time (Source) Location / / Volume Laterality Blood specimen 08/15/2017 11:56 8 (specimen) PM EST 11:56 PM EST Yonathan Smith MD POINT OF CARE TEST ORDERABLE S Performing Organization Address City/[facility]/ZIP Code Phon e Number [address] POCT Glucose (08/15/2017 8:05 PM EST) athologist Signature POC Glucose 136 65 - 199 [place] mg/dL [facility] Comment: Supplemental ranges: <140 mg/dL before meals <180 mg/dL all other times of the day Specimen Anatomical Collection Method Collection Time Receive d Time (Source) Location / / Volume Laterality Blood specimen 08/15/2017 8:05 PM 018 8:05 (specimen) EST PM EST Yonathan Smith MD POINT OF CARE TEST ORDERABLE S Performing Organization Address City/State/[place] [address] (ABNORMAL) POCT Glucose (08/15/2017 4:50 PM EST) athologist Signature POC Glucose 232 (H) 65 - 199 [place] mg/dL [facility] Comment: Supplemental ranges: <140 mg/dL before meals <180 mg/dL all other times of the day Specimen Anatomical Collection Method Collection Time Receive d Time (Source) Location / / Volume Laterality Blood specimen 08/15/2017 4:50 PM 018 4:50 (specimen) EST PM EST Yonathan Smith MD POINT OF CARE TEST ORDERABLE S Performing Organization Address City/State/[place] [address] POCT Glucose (08/15/2017 12:04 PM EST) athologist Signature POC Glucose 135 65 - 199 [place] mg/dL [facility] Comment: Supplemental ranges: <140 mg/dL before meals <180 mg/dL all other times of the day Specimen Anatomical Collection Method Collection Time Receive d Time (Source) Location / / Volume Laterality Blood specimen 08/15/2017 12:04 8 (specimen) PM EST 12:04 PM EST Yonathan Smith MD POINT OF CARE TEST ORDERABLE S Performing Organization Address City/State/[place] [address] POCT Glucose (08/15/2017 7:36 AM EST) athologist Signature POC Glucose 124 65 - 199 [place] mg/dL [facility] Comment: Supplemental ranges: <140 mg/dL before meals <180 mg/dL all other times of the day Specimen Anatomical Collection Method Collection Time Receive d Time (Source) Location / / Volume Laterality Blood specimen 08/15/2017 7:36 AM 018 7:36 (specimen) EST AM EST Yonathan Smith MD POINT OF CARE TEST ORDERABLE S Performing Organization Address City/State/[place] [address] (ABNORMAL) Differential, Automated (08/15/2017 6:22 AM EST) [facility] Method Time Signature Neutrophils % 76.1 % [facility] LABORATORY Neutr Abs (ANC) 6.62 (H) 1.70 - [facility] 6.10 [facility] x10(3)/[facility] LABORATORY Lymphocytes % 9.3 % [facility] LABORATORY Lymphocytes Abs 0.8 (L) 0.9 - 3.2 [facility] x10(3)/[facility] LABORATORY Monocytes % 9.4 % [facility] LABORATORY Monocyte Abs 0.8 0.3 - 0.9 [facility] x10(3)/[facility] LABORATORY Eosinophils % 4.0 % [facility] LABORATORY Eosinophils Abs 0.4 0.0 - 0.4 [facility] x10(3)/[facility] LABORATORY Basophils % 0.6 % [facility] LABORATORY Basophils Abs 0.0 0.0 - 0.1 [facility] x10(3)/[facility] LABORATORY Immature Gran % 0.60 [...] City/[facility]/ZIP Code Phon e Number [address] (ABNORMAL) Hemogram (08/15/2017 6:22 AM EST) Analysis Performed At Patho logist Time Signature WBC 8.7 4.0 - 9.5 [facility](3[facility] LABORATORY RBC 3.21 (L) 4.58 - [place] 5.54 [facility] x10(6)/[facility] LABORATORY Hemoglobin 9.1 (L) 13.7 - [facility] gm/dL [facility] LABORATORY Hematocrit 29.0 (L) 40.5 - [facility] 48.5 % [facility] LABORATORY MCV 90.3 82.9 - [facility] 93.1 [facility] LABORATORY MCH 28.3 27.5 - [facility] R[facility]AN 32.1 pg [facility] LABORATORY MCHC 31.4 (L) 32.0 - [facility] 35.7 gm/dL [facility] LABORATORY Platelets 254 145 - 357 [facility] x10(3)/[facility] LABORATORY RDWSD 53.9 (H) 36.0 - [facility] RYAN 45.0 [facility] LABORATORY RDWCV 16.3 (H) 11.4 - [facility] RYAN 13.8 % [facility] LABORATORY MPV 8.8 7.6 - 12.9 [facility] LABORATORY nRBC % Auto 0.0 % [facility] LABORATORY nRBC Abs Auto 0.000 0.000 - [facility] RYAN 0.000 [facility] x10(3)/[facility] LABORATORY Specimen Anatomical Collection Method Collection Time Receive d Time (Source) Location / / Volume Laterality Blood specimen 08/15/2017 6:22 AM 018 6:33 (specimen) EST AM EST Resulting Agency Comment Spec In Lab Yonathan Smith MD HEMATOLOGY ORDERABLES Performing Organization Address City/State/ZIP Code Phon e Number [facility] [place] [address] (ABNORMAL) Basic Metabolic Panel (non-fasting) (08/15/2017 6:22 AM EST) P athologist Signature Glucose Lvl 118 65 - 199 [facility] mg/dL [facility] LABORATORY Comment: Diabetes: >=200 [...] or in patients with acute kidney failure. [email or web address] Specimen Anatomical Collection Method Collection Time Receive d Time (Source) Location / / Volume Laterality Blood specimen 08/15/2017 6:22 AM 018 6:33 (specimen) EST AM EST Resulting Agency Comment Spec In Lab Yonathan Smith MD CHEMISTRY ORDERABLES Performing Organization Address City/State/ZIP Code Phon e Number [address] (ABNORMAL) Prothrombin Time (08/15/2017 6:22 AM EST) athologist Signature PT 21.9 (H) 11.8 - 14.0 [facility] LABORATORY INR 1.9 (H) 0.9 [...] Address City/State/ZIP Code Phon e Number [address] POCT Glucose (08/15/2017 4:33 AM EST) athologist Signature POC Glucose 164 65 - 199 [facility] mg/dL [facility] LABORATORY Comment: Supplemental ranges: <140 mg/dL before meals <180 mg/dL all other times of the day Specimen Anatomical Collection Method Collection Time Receive d Time (Source) Location / / Volume Laterality Blood specimen 08/15/2017 4:33 AM 018 4:33 (specimen) EST AM EST Yonathan Smith MD POINT OF CARE TEST ORDERABLE S Performing Organization Address City/State/ZIP Code Phon e Number [address] POCT Glucose (08/15/2017 12:12 AM EST) athologist Signature POC Glucose 89 65 - 199 [facility] mg/dL [facility] LABORATORY Comment: Supplemental ranges: <140 mg/dL before meals <180 mg/dL all other times of the day Specimen Anatomical Collection Method Collection Time Receive d Time (Source) Location / / Volume Laterality Blood specimen 08/15/2017 12:12 8 (specimen) AM EST 12:12 AM EST Yonathan Smith MD POINT OF CARE TEST ORDERABLE S Performing Organization Address City/State/ZIP Code Phon e Number [address] (ABNORMAL) POCT Glucose (08/14/2017 8:07 PM EST) athologist Signature POC Glucose 204 (H) 65 - 199 [facility] mg/dL [facility] LABORATORY Comment: Supplemental ranges: <140 mg/dL before meals <180 mg/dL all other times of the day Specimen Anatomical Collection Method Collection Time Receive d Time (Source) Location / / Volume Laterality Blood specimen 08/14/2017 8:07 PM 018 8:07 (specimen) EST PM EST Yonathan Smith MD POINT OF CARE TEST ORDERABLE S Performing Organization Address City/[facility]/[place] [address] POCT Glucose (08/14/2017 5:11 PM EST) athologist Signature POC Glucose 174 65 - 199 [facility] mg/dL [facility] LABORATORY Comment: Supplemental ranges: <140 mg/dL before meals <180 mg/dL all other times of the day Specimen Anatomical Collection Method Collection Time Receive d Time (Source) Location / / Volume Laterality Blood specimen 08/14/2017 5:11 PM 018 5:11 (specimen) EST PM EST Yonathan Smith MD POINT OF CARE TEST ORDERABLE S Performing Organization Address City/State/[place] [address] POCT Glucose (08/14/2017 12:10 PM EST) athologist Signature POC Glucose 141 65 - 199 [facility] mg/dL [facility] LABORATORY Comment: Supplemental ranges: <140 mg/dL before meals <180 mg/dL all other times of the day Specimen Anatomical Collection Method Collection Time Receive d Time (Source) Location / / Volume Laterality Blood specimen 08/14/2017 12:10 8 (specimen) PM EST 12:10 PM EST Yonathan Smith MD POINT OF CARE TEST ORDERABLE S Performing Organization Address City/State/ZIP Code Phon e Number [address] POCT Glucose (08/14/2017 8:07 AM EST) P athologist Signature POC Glucose 158 65 - 199 [facility] mg/dL [facility] LABORATORY Comment: Supplemental ranges: <140 mg/dL before meals <180 mg/dL all other times of the day Specimen Anatomical Collection Method Collection Time Receive d Time (Source) Location / / Volume Laterality Blood specimen 08/14/2017 8:07 AM 018 8:07 (specimen) EST AM EST Yonathan Smith MD POINT OF CARE TEST ORDERABLE S Performing Organization Address City/State/ZIP Code Phon e Number [address] (ABNORMAL) Differential, Automated (08/14/2017 4:52 AM EST) Patholo gist Method Time Signature Neutrophils % 78.6 % [facility] LABORATORY Neutr Abs (ANC) 7.70 (H) 1.70 - [facility] 6.10 [facility] x10(3)/[facility] LABORATORY Lymphocytes % 7.8 % [facility] LABORATORY Lymphocytes Abs 0.8 (L) 0.9 - 3.2 [facility] x10(3)/[facility] LABORATORY Monocytes % 8.8 % [facility] LABORATORY Monocyte Abs 0.9 0.3 - 0.9 [facility] x10(3)/[facility] LABORATORY Eosinophils % 4.0 % [facility] LABORATORY Eosinophils Abs 0.4 0.0 - 0.4 [facility] x10(3)/[facility] LABORATORY Basophils % 0.5 % [facility] LABORATORY Basophils Abs 0.0 0.0 - 0.1 [facility] x10(3)/[facility] LABORATORY Immature Gran % 0.30 [...] Melisa Gran Abs 0.03 0.00 - 0.04 x10(3)/[facility] MAR Y [facility] LABORATORY Specimen Anatomical Collection Method Collection Time Receive d Time (Source) Location / / Volume Laterality Blood specimen 08/14/2017 4:52 AM 018 5:08 (specimen) EST AM EST Resulting Agency Comment Spec In Lab Yonathan Smith MD HEMATOLOGY ORDERABLES Performing Organization Address City/State/ZIP [place] [address] (ABNORMAL) Hemogram (08/14/2017 4:52 AM EST) Analysis Performed At Patho logist Time Signature WBC 9.8 (H) 4.0 - 9.5 [facility] x10(3)/[facility] LABORATORY RBC 3.32 (L) 4.58 - [facility] 5.54 [facility] x10(6)/[facility] LABORATORY Hemoglobin 9.5 (L) 13.7 - [facility] 16.5 gm/dL [facility] LABORATORY Hematocrit 30.3 (L) 40.5 - [facility] 48.5 % [facility] LABORATORY MCV 91.3 82.9 - [facility] 93.1 [facility] LABORATORY MCH 28.6 27.5 - [facility] 32.1 pg [facility] LABORATORY MCHC 31.4 (L) 32.0 - [facility] 35.7 gm/dL [facility] LABORATORY Platelets 263 145 - 357 [facility] x10(3)/[facility] LABORATORY RDWSD 54.8 (H) 36.0 - [facility] 45.0 [facility] LABORATORY RDWCV 16.5 (H) 11.4 - [facility] 13.8 % [facility] LABORATORY MPV 9.1 7.6 - 12.9 [facility] LABORATORY nRBC % Auto 0.0 % [facility] LABORATORY nRBC Abs Auto 0.000 0.000 - [facility] 0.000 [facility] x10(3)/[facility] LABORATORY Specimen Anatomical Collection Method Collection Time Receive d Time (Source) Location / / Volume Laterality Blood specimen 08/14/2017 4:52 AM 018 5:08 (specimen) EST AM EST Resulting Agency Comment Spec In Lab Yonathan Smith MD HEMATOLOGY ORDERABLES Performing Organization Address City/[facility]/[place] [address] (ABNORMAL) Prothrombin Time (08/14/2017 4:52 AM EST) athologist Signature PT 18.8 (H) 11.8 - 14.0 [facility] [...] City/[facility]/[place] [address] (ABNORMAL) Basic Metabolic Panel (non-fasting) (08/14/2017 4:52 AM EST) athologist Signature Glucose Lvl 135 65 - 199 [facility] mg/dL [facility] LABORATORY Comment: Diabetes: >=200 [...] or in patients with acute kidney failure. [email or web address] Specimen Anatomical Collection Method Collection Time Receive d Time (Source) Location / / Volume Laterality Blood specimen 08/14/2017 4:52 AM 018 5:08 (specimen) EST AM EST Resulting Agency Comment Spec In Lab Yonathan Smith MD CHEMISTRY ORDERABLES Performing Organization Address City/[facility]/ZIP Code Phon e Number [address] POCT Glucose (08/14/2017 3:56 AM EST) P athologist Signature POC Glucose 135 65 - 199 [facility] mg/dL [facility] LABORATORY Comment: Supplemental ranges: <140 mg/dL before meals <180 mg/dL all other times of the day Specimen Anatomical Collection Method Collection Time Receive d Time (Source) Location / / Volume Laterality Blood specimen 08/14/2017 3:56 AM 018 3:56 (specimen) EST AM EST Yonathan Smith MD POINT OF CARE TEST ORDERABLE S Performing Organization Address City/[facility]/[place] [address] POCT Glucose (08/13/2017 11:13 PM EST) athologist Signature POC Glucose 118 65 - 199 [facility] mg/dL [facility] LABORATORY Comment: Supplemental ranges: <140 mg/dL before meals <180 mg/dL all other times of the day Specimen Anatomical Collection Method Collection Time Receive d Time (Source) Location / / Volume Laterality Blood specimen 08/13/2017 11:13 8 (specimen) PM EST 11:13 PM EST Yonathan Smith MD POINT OF CARE TEST ORDERABLE S Performing Organization Address City/State/[place] [address] (ABNORMAL) POCT Glucose (08/13/2017 8:08 PM EST) athologist Signature POC Glucose 204 (H) 65 - 199 [facility] mg/dL [facility] LABORATORY Comment: Supplemental ranges: <140 mg/dL before meals <180 mg/dL all other times of the day Specimen Anatomical Collection Method Collection Time Receive d Time (Source) Location / / Volume Laterality Blood specimen 08/13/2017 8:08 PM 018 8:08 (specimen) EST PM EST Yonathan Smith MD POINT OF CARE TEST ORDERABLE S Performing Organization Address City/State/[place] [address] POCT Glucose (08/13/2017 4:02 PM EST) athologist Signature POC Glucose 145 65 - 199 [facility] mg/dL [facility] LABORATORY Comment: Supplemental ranges: <140 mg/dL before meals <180 mg/dL all other times of the day Specimen Anatomical Collection Method Collection Time Receive d Time (Source) Location / / Volume Laterality Blood specimen 08/13/2017 4:02 PM 018 4:02 (specimen) EST PM EST Yonathan Smith MD POINT OF CARE TEST ORDERABLE S Performing Organization Address City/State/[place] [address] POCT Glucose (08/13/2017 11:31 AM EST) athologist Signature POC Glucose 179 65 - 199 [facility] mg/dL [facility] LABORATORY Comment: Supplemental ranges: <140 mg/dL before meals <180 mg/dL all other times of the day Specimen Anatomical Collection Method Collection Time Receive d Time (Source) Location / / Volume Laterality Blood specimen 08/13/2017 11:31 8 (specimen) AM EST 11:31 AM EST Yonathan Smith MD POINT OF CARE TEST ORDERABLE S Performing Organization Address City/[facility]/[place] [address] (ABNORMAL) POCT Glucose (08/13/2017 10:16 AM EST) athologist Signature POC Glucose 211 (H) 65 - 199 [facility] mg/dL [facility] LABORATORY Comment: Supplemental ranges: <140 mg/dL before meals <180 mg/dL all other times of the day Specimen Anatomical Collection Method Collection Time Receive d Time (Source) Location / / Volume Laterality Blood specimen 08/13/2017 10:16 8 (specimen) AM EST 10:16 AM EST Yonathan Smith MD POINT OF CARE TEST ORDERABLE S Performing Organization Address City/[facility]/[place] [address] JULIAN, legs, multiple levels (08/13/2017 7:42 AM EST) Component Value Ref [facility] Time Signature VB Text Department: Vascular Surgery Lab VASCUBASE Report Patient: [id number] (GREGORY HOANG) CPT: 90758 ICD10: I99.8 Referring Physician: YONATHAN SMITH ?? Indications: s/p R 1,2,3 toe amps with red left foot, need n ew baseline Diabetes mellitus: yes ICD10 Diagnosis Code: I99.8 Findings: Right ?Pressure (mm Hg) ?? JULIAN ??Waveform ?TBI ?? Brachial Artery ?138 ? Dorsalis Pedis (Ankle) Arter y ?132 ? 0.94 ??Labette- Biphasic ? Posterior Tibial (Ankle) Art anila ??154 ? 1.10 ??Labette-Biphasic ? Fourth Toe ? 67 ? 0.48 [...] POC Glucose 156 65 - 199 [facility] mg/dL [facility] LABORATORY Comment: Supplemental ranges: <140 mg/dL before meals <180 mg/dL all other times of the day Specimen Anatomical Collection Method Collection Time Receive d Time (Source) Location / / Volume Laterality Blood specimen 08/13/2017 7:33 AM 018 7:33 (specimen) EST AM EST Yonathan Smith MD POINT OF CARE TEST ORDERABLE S Performing Organization Address City/State/ZIP [place] [address] (ABNORMAL) Differential, Automated (08/13/2017 5:33 AM EST) Patholo gist Method Time Signature Neutrophils % 77.8 % [facility] LABORATORY Neutr Abs (ANC) 7.83 (H) 1.70 - [facility] 6.10 [facility] x10(3)/[facility] LABORATORY Lymphocytes % 8.4 % [facility] LABORATORY Lymphocytes Abs 0.8 (L) 0.9 - 3.2 [facility] x10(3)/[facility] LABORATORY Monocytes % 8.3 % [facility] LABORATORY Monocyte Abs 0.8 0.3 - 0.9 [facility] x10(3)/[facility] LABORATORY Eosinophils % 4.6 % [facility] LABORATORY Eosinophils Abs 0.5 (H) 0.0 - 0.4 [facility] x10(3)/[facility] LABORATORY Basophils % 0.5 % [facility] LABORATORY Basophils Abs 0.0 0.0 - 0.1 [facility] x10(3)/[facility] LABORATORY Immature Gran % 0.40 [...] Melisa Gran Abs 0.04 0.00 - 0.04 x10(3)/[facility] MAR [facility] LABORATORY Specimen Anatomical Collection Method Collection Time Receive d Time (Source) Location / / Volume Laterality Blood specimen 08/13/2017 5:33 AM 018 6:04 (specimen) EST AM EST Resulting Agency Comment Spec In Lab Yonathan Smith MD HEMATOLOGY ORDERABLES Performing Organization Address City/State/ZIP Code Phon e Number [place] [id number] (ABNORMAL) Hemogram (08/13/2017 5:33 AM EST) Analysis Performed At Patho logist Time Signature WBC 10.1 (H) 4.0 - 9.5 [facility] x10(3)/[facility] LABORATORY RBC 3.21 (L) 4.58 - [facility] 5.54 [facility] x10(6)/[facility] LABORATORY Hemoglobin 9.2 (L) 13.7 - [facility] 16.5 gm/dL [facility] LABORATORY Hematocrit 29.6 (L) 40.5 - [facility] 48.5 % [facility] LABORATORY MCV 92.2 82.9 - [facility] 93.1 [facility] LABORATORY MCH 28.7 27.5 - [facility] 32.1 pg [facility] LABORATORY MCHC 31.1 (L) 32.0 - [facility] 35.7 gm/dL [facility] LABORATORY Platelets 263 145 - 357 [facility] x10(3)/[facility] LABORATORY RDWSD 54.8 (H) 36.0 - [facility] 45.0 [facility] LABORATORY RDWCV 16.4 (H) 11.4 - [facility] 13.8 % [facility] LABORATORY MPV 9.2 7.6 - 12.9 [facility] LABORATORY nRBC % Auto 0.0 % [facility] LABORATORY nRBC Abs Auto 0.000 0.000 - [facility] 0.000 [facility] x10(3)/[facility] LABORATORY Specimen Anatomical Collection Method Collection Time Receive d Time (Source) Location / / Volume Laterality Blood specimen 08/13/2017 5:33 AM 018 6:04 (specimen) EST AM EST Resulting Agency Comment Spec In Lab Yonathan Smith MD HEMATOLOGY ORDERABLES Performing Organization Address City/State/ZIP [place] [address] (ABNORMAL) Prothrombin Time (08/13/2017 5:33 AM EST) P athologist Signature PT 17.3 (H) 11.8 - 14.0 [facility] LABORATORY INR 1.4 (H) 0.9 [...] Organization Address City/State/ZIP [place] [address] (ABNORMAL) Basic Metabolic Panel (non-fasting) (08/13/2017 5:33 AM EST) P athologist Signature Glucose Lvl 126 65 - 199 [facility] mg/dL [facility] LABORATORY Comment: Diabetes: >=200 [...] or in patients with acute kidney failure. [email or web address] Specimen Anatomical Collection Method Collection Time Receive d Time (Source) Location / / Volume Laterality Blood specimen 08/13/2017 5:33 AM 018 6:04 (specimen) EST AM EST Resulting Agency Comment Spec In Lab Yonathan Smith MD CHEMISTRY ORDERABLES Performing Organization Address City/State/ZIP Code Phon e Number [address] POCT Glucose (08/13/2017 4:29 AM EST) athologist Signature POC Glucose 111 65 - 199 [facility] mg/dL [facility] LABORATORY Comment: Supplemental ranges: <140 mg/dL before meals <180 mg/dL all other times of the day Specimen Anatomical Collection Method Collection Time Receive d Time (Source) Location / / Volume Laterality Blood specimen 08/13/2017 4:29 AM 018 4:29 (specimen) EST AM EST Yonathan Smith MD POINT OF CARE TEST ORDERABLE S Performing Organization Address City/[facility]/[place] [address] POCT Glucose (08/12/2017 11:28 PM EST) athologist Signature POC Glucose 164 65 - 199 [facility] mg/dL [facility] LABORATORY Comment: Supplemental ranges: <140 mg/dL before meals <180 mg/dL all other times of the day Specimen Anatomical Collection Method Collection Time Receive d Time (Source) Location / / Volume Laterality Blood specimen 08/12/2017 11:28 8 (specimen) PM EST 11:28 PM EST Yonathan Smith MD POINT OF CARE TEST ORDERABLE S Performing Organization Address City/[facility]/ZIP Code Phon e Number [address] (ABNORMAL) POCT Glucose (08/12/2017 7:40 PM EST) athologist Signature POC Glucose 209 (H) 65 - 199 [facility] mg/dL [facility] LABORATORY Comment: Supplemental ranges: <140 mg/dL before meals <180 mg/dL all other times of the day Specimen Anatomical Collection Method Collection Time Receive d Time (Source) Location / / Volume Laterality Blood specimen 08/12/2017 7:40 PM 018 7:40 (specimen) EST PM EST Yonathan Smith MD POINT OF CARE TEST ORDERABLE S Performing Organization Address City/State/ZIP Code Phon e Number [address] POCT Glucose (08/12/2017 4:24 PM EST) athologist Signature POC Glucose 161 65 - 199 [facility] mg/dL [facility] LABORATORY Comment: Supplemental ranges: <140 mg/dL before meals <180 mg/dL all other times of the day Specimen Anatomical Collection Method Collection Time Receive d Time (Source) Location / / Volume Laterality Blood specimen 08/12/2017 4:24 PM 018 4:24 (specimen) EST PM EST Yonathan Smith MD POINT OF CARE TEST ORDERABLE S Performing Organization Address City/State/ZIP Code Phon e Number [address] POCT Glucose (08/12/2017 12:00 PM EST) athologist Signature POC Glucose 167 65 - 199 [facility] mg/dL [facility] LABORATORY Comment: Supplemental ranges: <140 mg/dL before meals <180 mg/dL all other times of the day Specimen Anatomical Collection Method Collection Time Receive d Time (Source) Location / / Volume Laterality Blood specimen 08/12/2017 12:00 8 (specimen) PM EST 12:00 PM EST Yonathan Smith MD POINT OF CARE TEST ORDERABLE S Performing Organization Address City/State/ZIP Code Phon e Number [address] POCT Glucose (08/12/2017 7:25 AM EST) athologist Signature POC Glucose 152 65 - 199 [facility] mg/dL [facility] LABORATORY Comment: Supplemental ranges: <140 mg/dL before meals <180 mg/dL all other times of the day Specimen Anatomical Collection Method Collection Time Receive d Time (Source) Location / / Volume Laterality Blood specimen 08/12/2017 7:25 AM 018 7:25 (specimen) EST AM EST Yonathan Smith MD POINT OF CARE TEST ORDERABLE S Performing Organization Address City/State/ZIP [place] [address] (ABNORMAL) Differential, Automated (08/12/2017 6:29 AM EST) [facility] Method Time Signature Neutrophils % 78.7 % [facility] LABORATORY Neutr Abs (ANC) 7.94 (H) 1.70 - [facility] 6.10 [facility] x10(3)/[facility] LABORATORY Lymphocytes % 8.8 % [facility] LABORATORY Lymphocytes Abs 0.9 0.9 - 3.2 [facility] x10(3)/[facility] LABORATORY Monocytes % 7.8 % [facility] LABORATORY Monocyte Abs 0.8 0.3 - 0.9 [facility] x10(3)/[facility] LABORATORY Eosinophils % 3.9 % [facility] LABORATORY Eosinophils Abs 0.4 0.0 - 0.4 [facility] x10(3)/[facility] LABORATORY Basophils % 0.3 % [facility] LABORATORY Basophils Abs 0.0 0.0 - 0.1 [facility] x10(3)/[facility] LABORATORY Immature Gran % 0.50 [...] Address City/State/ZIP Code Phon e Number [address] (ABNORMAL) Hemogram (08/12/2017 6:29 AM EST) Analysis Performed At Patho logist Time Signature WBC 10.1 (H) 4.0 - 9.5 [facility] LABORATORY RBC 3.02 (L) 4.58 - [place] 5.54 [facility] x10(6)/[facility] LABORATORY Hemoglobin 8.7 (L) 13.7 - [facility] 16[facility]5 gm/dL [facility] Hematocrit 28.1 (L) 40.5 - [facility] 48.5 % [facility] MCV 93.0 82.9 - [facility]1 [facility] LABORATORY MCH 28.8 27.5 - [place] R[place] 32.1 pg [facility] MCHC 31.0 (L) 32.0 - [place] 35.7 gm/dL [facility] Platelets 223 145 - 357 [facility] x10(3)/[facility] LABORATORY RDWSD 56.1 (H) 36.0 - [place] R[place]AN 45.0 [facility] LABORATORY RDWCV 16.4 (H) 11.4 - [facility] RYAN 13.8 % [facility] MPV 9.0 7.6 - 12.9 [facility] LABORATORY nRBC % Auto 0.0 % [facility] nRBC Abs Auto 0.000 0.000 - [place] 0.000 [facility] x10(3)/[facility] LABORATORY Specimen Anatomical Collection Method Collection Time Receive d Time (Source) Location / / Volume Laterality Blood specimen 08/12/2017 6:29 AM 018 6:38 (specimen) EST AM EST Resulting Agency Comment Spec In Lab Yonathan Smith MD HEMATOLOGY ORDERABLES Performing Organization Address City/State/[place] [address] (ABNORMAL) Prothrombin Time (08/12/2017 6:29 AM EST) athologist Signature PT 16.1 (H) 11.8 - 14.0 [facility] [...] Organization Address City/State/[place] [address] (ABNORMAL) Basic Metabolic Panel (non-fasting) (08/12/2017 6:29 AM EST) athologist Signature Glucose Lvl 151 65 - 199 [facility] mg/dL [facility] Comment: Diabetes: >=200 [...] or in patients with acute kidney failure. [email or web address] Specimen Anatomical Collection Method Collection Time Receive d Time (Source) Location / / Volume Laterality Blood specimen 08/12/2017 6:29 AM 018 6:38 (specimen) EST AM EST Resulting Agency Comment Spec In Lab Yonathan Smith MD CHEMISTRY ORDERABLES Performing Organization Address City/[facility]/ZIP Code Phon e Number [address] POCT Glucose (08/12/2017 4:08 AM EST) athologist Signature POC Glucose 181 65 - 199 [facility] mg/dL [facility] Comment: Supplemental ranges: <140 mg/dL before meals <180 mg/dL all other times of the day Specimen Anatomical Collection Method Collection Time Receive d Time (Source) Location / / Volume Laterality Blood specimen 08/12/2017 4:08 AM 018 4:08 (specimen) EST AM EST Yonathan Smith MD POINT OF CARE TEST ORDERABLE S Performing Organization Address City/State/[place] [address] (ABNORMAL) POCT Glucose (08/12/2017 12:17 AM EST) P athologist Signature POC Glucose 221 (H) 65 - 199 [facility] mg/dL [facility] Comment: Supplemental ranges: <140 mg/dL before meals <180 mg/dL all other times of the day Specimen Anatomical Collection Method Collection Time Receive d Time (Source) Location / / Volume Laterality Blood specimen 08/12/2017 12:17 8 (specimen) AM EST 12:17 AM EST Yonathan Smith MD POINT OF CARE TEST ORDERABLE S Performing Organization Address City/[facility]/ZIP Code Phon e Number [address] (ABNORMAL) POCT Glucose (08/11/2017 8:52 PM EST) athologist Signature POC Glucose 221 (H) 65 - 199 [facility] mg/dL [facility] Comment: Supplemental ranges: <140 mg/dL before meals <180 mg/dL all other times of the day Specimen Anatomical Collection Method Collection Time Receive d Time (Source) Location / / Volume Laterality Blood specimen 08/11/2017 8:52 PM 018 8:52 (specimen) EST PM EST Yonathan Smith MD POINT OF CARE TEST ORDERABLE S Performing Organization Address City/[facility]/[place] [address] POCT Glucose (08/11/2017 5:59 PM EST) athologist Signature POC Glucose 169 65 - 199 [facility] mg/dL [facility] Comment: Supplemental ranges: <140 mg/dL before meals <180 mg/dL all other times of the day Specimen Anatomical Collection Method Collection Time Receive d Time (Source) Location / / Volume Laterality Blood specimen 08/11/2017 5:59 PM 018 5:59 (specimen) EST PM EST Yonathan Smith MD POINT OF CARE TEST ORDERABLE S Performing Organization Address City/[facility]/[place] [address] (ABNORMAL) POCT Glucose (08/11/2017 4:08 PM EST) athologist Signature POC Glucose 240 (H) 65 - 199 [place] [facility] mg/dL [facility] Comment: Supplemental ranges: <140 mg/dL before meals <180 mg/dL all other times of the day Specimen Anatomical Collection Method Collection Time Receive d Time (Source) Location / / Volume Laterality Blood specimen 08/11/2017 4:08 PM 01/17/2 018 4:08 (specimen) EST PM EST Yonathan Smith MD POINT OF CARE TEST ORDERABLE S Performing Organization Address City/State/ZIP Code Phon e Number [address] POCT Glucose (08/11/2017 12:04 PM EST) athologist Signature POC Glucose 182 65 - 199 [facility] mg/dL [facility] Comment: Supplemental ranges: <140 mg/dL before meals <180 mg/dL all other times of the day Specimen Anatomical Collection Method Collection Time Receive d Time (Source) Location / / Volume Laterality Blood specimen 08/11/2017 12:04 8 (specimen) PM EST 12:04 PM EST Yonathan Smith MD POINT OF CARE TEST ORDERABLE S Performing Organization Address City/State/ZIP Code Phon e Number [address] POCT Glucose (08/11/2017 7:31 AM EST) athologist Signature POC Glucose 156 65 - 199 [facility] mg/dL [facility] Comment: Supplemental ranges: <140 mg/dL before meals <180 mg/dL all other times of the day Specimen Anatomical Collection Method Collection Time Receive d Time (Source) Location / / Volume Laterality Blood specimen 08/11/2017 7:31 AM 018 7:31 (specimen) EST AM EST Yonathan Smith MD POINT OF CARE TEST ORDERABLE S Performing Organization Address City/State/ZIP Code Phon e Number [address] (ABNORMAL) Differential, Automated (08/11/2017 6:16 AM EST) [facility] gist Method Time Signature Neutrophils % 83.7 % [facility] Neutr Abs (ANC) 10.76 (H) 1.70 - [facility] 6.10 [facility] x10(3)/[facility] LABORATORY Lymphocytes % 6.0 % [facility] Lymphocytes Abs 0.8 (L) 0.9 - 3.2 [facility] x10(3)/[facility] LABORATORY Monocytes % 7.5 % [facility] Monocyte Abs 1.0 (H) 0.3 - 0.9 [facility] x10(3)/[facility] LABORATORY Eosinophils % 2.0 % [facility] Eosinophils Abs 0.3 0.0 - 0.4 [facility] x10(3)/[facility] LABORATORY Basophils % 0.3 % [facility] Basophils Abs 0.0 0.0 - 0.1 [facility] x10(3)/[facility] LABORATORY Immature Gran % 0.50 [...] Organization Address City/State/ZIP [place] [address] (ABNORMAL) Hemogram (08/11/2017 6:16 AM EST) Analysis Performed At Patho logist Time Signature WBC 12.9 (H) 4.0 - 9.5 [facility] x10(3)/[facility] LABORATORY RBC 3.28 (L) 4.58 - [facility] 5.54 [facility] x10(6)/[facility] LABORATORY Hemoglobin 9.5 (L) 13.7 - [facility] 16.5 gm/dL [facility] Hematocrit 29.8 (L) 40.5 - [facility] 48.5 % [facility] MCV 90.9 82.9 - [facility] 93.1 [facility] LABORATORY MCH 29.0 27.5 - [place] 32.1 pg [facility] MCHC 31.9 (L) 32.0 - [place] [facility] 35.7 gm/dL [facility] Platelets 236 145 - 357 [facility] x10(3)/[facility] LABORATORY RDWSD 53.5 (H) 36.0 - [facility] 45.0 [facility] LABORATORY RDWCV 16.3 (H) 11.4 - [facility] RYAN 13.8 % [facility] MPV 8.8 7.6 - 12.9 [facility] LABORATORY nRBC % Auto 0.0 % [facility] nRBC Abs Auto 0.000 0.000 - [facility] RYAN 0.000 [facility] x10(3)/[facility] LABORATORY Specimen Anatomical Collection Method Collection Time Receive d Time (Source) Location / / Volume Laterality Blood specimen 08/11/2017 6:16 AM 018 6:24 (specimen) EST AM EST Resulting Agency Comment Spec In Lab Yonathan Smith MD HEMATOLOGY ORDERABLES Performing Organization Address City/State/ZIP [place] [address] (ABNORMAL) Prothrombin Time (08/11/2017 6:16 AM EST) P athologist Signature PT 15.5 (H) 11.8 - 14.0 [facility] [...] City/[facility]/[place] [address] Basic Metabolic Panel (non-fasting) (08/11/2017 6:16 AM EST) athologist Signature Glucose Lvl 139 65 - 199 [facility] mg/dL [facility] Comment: Diabetes: >=200 [...] or in patients with acute kidney failure. [email or web address] Specimen Anatomical Collection Method Collection Time Receive d Time (Source) Location / / Volume Laterality Blood specimen 08/11/2017 6:16 AM 018 6:24 (specimen) EST AM EST Resulting Agency Comment Spec In Lab Yonathan Smith MD CHEMISTRY ORDERABLES Performing Organization Address City/[facility]/ZIP Code Phon e Number [address] POCT Glucose (08/11/2017 4:07 AM EST) athologist Signature POC Glucose 162 65 - 199 [facility] mg/dL [facility] Comment: Supplemental ranges: <140 mg/dL before meals <180 mg/dL all other times of the day Specimen Anatomical Collection Method Collection Time Receive d Time (Source) Location / / Volume Laterality Blood specimen 08/11/2017 4:07 AM 018 4:07 (specimen) EST AM EST Yonathan Smith MD POINT OF CARE TEST ORDERABLE S Performing Organization Address City/State/ZIP Code Phon e Number [address] POCT Glucose (08/10/2017 11:59 PM EST) athologist Signature POC Glucose 166 65 - 199 [place] mg/dL [facility] Comment: Supplemental ranges: <140 mg/dL before meals <180 mg/dL all other times of the day Specimen Anatomical Collection Method Collection Time Receive d Time (Source) Location / / Volume Laterality Blood specimen 08/10/2017 11:59 8 (specimen) PM EST 11:59 PM EST Yonathan Smith MD POINT OF CARE TEST ORDERABLE S Performing Organization Address City/State/[place] [address] POCT Glucose (08/10/2017 8:12 PM EST) athologist Signature POC Glucose 156 65 - 199 [facility] RYAN mg/dL [facility] Comment: Supplemental ranges: <140 mg/dL before meals <180 mg/dL all other times of the day Specimen Anatomical Collection Method Collection Time Receive d Time (Source) Location / / Volume Laterality Blood specimen 08/10/2017 8:12 PM 018 8:12 (specimen) EST PM EST Yonathan Smith MD POINT OF CARE TEST ORDERABLE S Performing Organization Address City/State/[place] [address] (ABNORMAL) POCT Glucose (08/10/2017 4:42 PM EST) P athologist Signature POC Glucose 211 (H) 65 - 199 [facility] mg/dL [facility] Comment: Supplemental ranges: <140 mg/dL before meals <180 mg/dL all other times of the day Specimen Anatomical Collection Method Collection Time Receive d Time (Source) Location / / Volume Laterality Blood specimen 08/10/2017 4:42 PM 018 4:42 (specimen) EST PM EST Yonathan Smith MD POINT OF CARE TEST ORDERABLE S Performing Organization Address City/State/ZIP Code Phon e Number [place] [id number]OS[address]ORY Drive (ABNORMAL) Differential, Automated (08/10/2017 2:30 PM EST) Patholo gist Method Time Signature Neutrophils % 87.6 % [facility] Neutr Abs (ANC) 9.90 (H) 1.70 - [facility] 6.10 [facility] x10(3)/[facility] L LABORATORY Lymphocytes % 4.3 % [facility] Lymphocytes Abs 0.5 (L) 0.9 - 3.2 [facility] x10(3)/[facility] LABORATORY Monocytes % 6.0 % [facility] Monocyte Abs 0.7 0.3 - 0.9 [facility] x10(3)/[facility] LABORATORY Eosinophils % 1.1 % [facility] Eosinophils Abs 0.1 0.0 - 0.4 [facility] x10(3)/[facility] LABORATORY Basophils % 0.4 % [facility] Basophils Abs 0.0 0.0 - 0.1 [facility] x10(3)/[facility] LABORATORY Immature Gran % 0.60 [...] Organization Address City/State/Z[place] [address] (ABNORMAL) Hemogram (08/10/2017 2:30 PM EST) Analysis Performed At Patho logist Time Signature WBC 11.3 (H) 4.0 - 9.5 [facility] x10(3)/[facility] LABORATORY RBC 3.13 (L) 4.58 - [facility] 5.54 [facility] x10(6)/[facility] LABORATORY Hemoglobin 8.9 (L) 13.7 - [facility] 16.5 gm/dL [facility] Hematocrit 28.4 (L) 40.5 - [facility] 48.5 % [facility] MCV 90.7 82.9 - [facility] 93[facility]1 [facility] LABORATORY MCH 28.4 27.5 - [facility] 32.1 pg [facility] MCHC 31.3 (L) 32.0 - [facility] 35.7 gm/dL [facility] Platelets 213 145 - 357 [facility] x10(3)/[facility] LABORATORY RDWSD 53.7 (H) 36.0 - [facility] RYAN 45.0 [facility] LABORATORY RDWCV 16.4 (H) 11.4 - [facility] RYAN 13.8 % [facility] MPV 8.9 7.6 - 12.9 [facility] LABORATORY nRBC % Auto 0.0 % [facility] nRBC Abs Auto 0.000 0.000 - [facility] RYAN 0.000 [facility] x10(3)/[facility] LABORATORY Specimen Anatomical Collection Method Collection Time Receive d Time (Source) Location / / Volume Laterality Blood specimen 08/10/2017 2:30 PM 018 2:48 (specimen) EST PM EST Resulting Agency Comment Spec In Lab Yonathan Smith MD HEMATOLOGY ORDERABLES Performing Organization Address City/State/ZIP Code Phon e Number [address] (ABNORMAL) POCT Glucose (08/10/2017 1:50 PM EST) athologist Signature POC Glucose 243 (H) 65 - 199 [facility] mg/dL [facility] Comment: Supplemental ranges: <140 mg/dL before meals <180 mg/dL all other times of the day Specimen Anatomical Collection Method Collection Time Receive d Time (Source) Location / / Volume Laterality Blood specimen 08/10/2017 1:50 PM 018 1:50 (specimen) EST PM EST Yonathan Smith MD POINT OF CARE TEST ORDERABLE S Performing Organization Address City/[facility]/ZIP Code Phon e Number [address] POCT Glucose (08/10/2017 11:21 AM EST) athologist Signature POC Glucose 156 65 - 199 [facility] mg/dL [facility] Comment: Supplemental ranges: <140 mg/dL before meals <180 mg/dL all other times of the day Specimen Anatomical Collection Method Collection Time Receive d Time (Source) Location / / Volume Laterality Blood specimen 08/10/2017 11:21 8 (specimen) AM EST 11:21 AM EST Yonathan Smith MD POINT OF CARE TEST ORDERABLE S Performing Organization Address City/[facility]/[place] [address] (ABNORMAL) Differential, Automated (08/10/2017 10:28 AM EST) [facility] Signature Neutrophils % 85.3 % [facility] Neutr Abs (ANC) 9.43 (H) 1.70 - [facility] 6.10 [facility] x10(3)/[facility] L LABORATORY Lymphocytes % 5.5 % [facility] Lymphocytes Abs 0.6 (L) 0.9 - 3.2 [facility] x10(3)/[facility] LABORATORY Monocytes % 5.9 % [facility] Monocyte Abs 0.6 0.3 - 0.9 [facility] x10(3)/[facility] LABORATORY Eosinophils % 2.1 % [facility] Eosinophils Abs 0.2 0.0 - 0.4 [facility] x10(3)/[facility] LABORATORY Basophils % 0.4 % [facility] Basophils Abs 0.0 0.0 - 0.1 [facility] x10(3)/[facility] LABORATORY Immature Gran % 0.80 [...] Organization Address City/State/ZIP [place] [address] (ABNORMAL) Hemogram (08/10/2017 10:28 AM EST) Analysis Performed At Patho logist Time Signature WBC 11.0 (H) 4.0 - 9.5 [facility] x10(3)/[facility] LABORATORY RBC 3.02 (L) 4.58 - [facility] 5.54 [facility] x10(6)/[facility] LABORATORY Hemoglobin 8.8 (L) 13.7 - [facility] 16.5 gm/dL [facility] Hematocrit 28.1 (L) 40.5 - [facility] 48.5 % [facility] MCV 93.0 82.9 - [facility] 93.1 [facility] MCH 29.1 27.5 - [place] DAVIS 32.[address] [facility] MCHC 31.3 (L) 32.0 - [place] DAV[facility] 35.7 gm/dL [facility] Platelets 207 145 - 357 [facility] x10(3)/[facility] LABORATORY RDWSD 55.3 (H) 36.0 - [place] RYAN 45.0 [facility] RDWCV 16.4 (H) 11.4 - [facility] RYAN 13.8 % [facility] MPV 9.0 7.6 - 12.9 [facility] LABORATORY nRBC % Auto 0.0 % [facility] nRBC Abs Auto 0.000 0.000 - [facility] RYAN 0.000 [facility] x10(3)/[facility] LABORATORY Specimen Anatomical Collection Method Collection Time Receive d Time (Source) Location / / Volume Laterality Blood specimen 08/10/2017 10:28 8 (specimen) AM EST 10:35 AM EST Resulting Agency Comment Spec In Lab Yonathan Smith MD HEMATOLOGY ORDERABLES Performing Organization Address City/State/ZIP [place] [address] VS Angiogram/intervention (vascular) (08/10/2017 [...] 2.5x80 5. Completion RLE angiogram 6. L TELEPHONE LINEMAN angiogram 7. 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 L TELEPHONE LINEMAN access in the distal L TELEPHONE LINEMAN. - Closure device: Mynx Technical Procedure: ?The [...] for a 45cm 5F Destination. V18 and [place] a nd QuickCross catheters were used to [...] bifurcation. Access appeared in the distal R TELEPHONE LINEMAN. Closure and sheath removal was performed with [...] 2.5x80 5. Completion RLE angiogram 6. L TELEPHONE LINEMAN angiogram 7. 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 L TELEPHONE LINEMAN access in the distal L TELEPHONE LINEMAN. - Closure device: Mynx Technical Procedure: The [...] for a 45cm 5F Destination. V18 and [place] a nd QuickCross catheters were used to [...] bifurcation. Access appeared in the distal R TELEPHONE LINEMAN. Closure and sheath removal was performed with [...] (08/10/2017 5:50 AM EST) [facility] gist Method Time Signature Neutrophils % 80.1 % [facility]ORY Neutr Abs (ANC) 9.01 (H) 1.70 - [facility] 6.10 [facility] x10(3)/[facility] LABORATORY Lymphocytes % 8.8 % [facility] Lymphocytes Abs 1.0 0.9 - 3.2 [facility] x10(3)/[facility] LABORATORY Monocytes % 8.3 % [facility] Monocyte Abs 0.9 0.3 - 0.9 [facility] x10(3)/[facility] LABORATORY Eosinophils % 2.0 % [facility] Eosinophils Abs 0.2 0.0 - 0.4 [facility] x10(3)/[facility] LABORATORY Basophils % 0.4 % [facility] Basophils Abs 0.0 0.0 - 0.1 [facility] x10(3)/[facility] LABORATORY Immature Gran % 0.40 [...] Organization Address City/State/Z[place] [address] (ABNORMAL) Hemogram (08/10/2017 5:50 AM EST) Analysis Performed At Patho logist Time Signature WBC 11.3 (H) 4.0 - 9.5 [facility] LABORATORY RBC 3.15 (L) 4.58 - [facility] 5.54 [facility] x10(6)/[facility] LABORATORY Hemoglobin 8.9 (L) 13.7 - [facility] 16.5 gm/dL [facility] Hematocrit 29.0 (L) 40.5 - [facility] 48.5 % [facility] MCV 92.1 82.9 - [facility] 93.1 [facility] LABORATORY MCH 28.3 27.5 - [facility] RYAN 32.1 pg [facility] MCHC 30.7 (L) 32.0 - [facility] 35.7 gm/dL [facility] Platelets 231 145 - 357 [facility] x10(3)/[facility] LABORATORY RDWSD 53.9 (H) 36.0 - [facility] RYAN 45.0 [facility] LABORATORY RDWCV 16.2 (H) 11.4 - [facility] RYAN 13.8 % [facility] MPV 8.7 7.6 - 12.9 [facility] LABORATORY nRBC % Auto 0.0 % [facility] nRBC Abs Auto 0.000 0.000 - [facility] 0.000 [facility] x10(3)/[facility] LABORATORY Specimen Anatomical Collection Method Collection Time Receive d Time (Source) Location / / Volume Laterality Blood specimen 08/10/2017 5:50 AM 018 5:59 (specimen) EST AM EST Resulting Agency Comment Spec In Lab Yonathan Smith MD HEMATOLOGY ORDERABLES Performing Organization Address City/State/ZIP [place] [address] (ABNORMAL) Basic Metabolic Panel (non-fasting) (08/10/2017 5:50 AM EST) athologist Signature Glucose Lvl 135 65 - 199 [facility] mg/dL [facility] Comment: Diabetes: >=200 [...] or in patients with acute kidney failure. [email or web address] Specimen Anatomical Collection Method Collection Time Receive d Time (Source) Location / / Volume Laterality Blood specimen 08/10/2017 5:50 AM 018 5:59 (specimen) EST AM EST Resulting Agency Comment Spec In Lab Yonathan Smith MD CHEMISTRY ORDERABLES Performing Organization Address City/[facility]/[place] [address] (ABNORMAL) Prothrombin Time (08/10/2017 5:50 AM EST) athologist Signature PT 16.8 (H) 11.8 - 14.0 [facility] LABORATORY INR 1.4 (H) 0.9 [...] City/[facility]/[place] [address] (ABNORMAL) POCT Glucose (08/10/2017 4:01 AM EST) athologist Signature POC Glucose 206 (H) 65 - 199 [facility] mg/dL [facility] LABORATORY Comment: Supplemental ranges: <140 mg/dL before meals <180 mg/dL all other times of the day Specimen Anatomical Collection Method Collection Time Receive d Time (Source) Location / / Volume Laterality Blood specimen 08/10/2017 4:01 AM 018 4:01 (specimen) EST AM EST Yonathan Smith MD POINT OF CARE TEST ORDERABLE S Performing Organization Address City/[facility]/ZIP Code [place] [address] POCT Glucose (08/10/2017 2:01 AM EST) athologist Signature POC Glucose 188 65 - 199 [place] mg/dL [facility] LABORATORY Comment: Supplemental ranges: <140 mg/dL before meals <180 mg/dL all other times of the day Specimen Anatomical Collection Method Collection Time Receive d Time (Source) Location / / Volume Laterality Blood specimen 08/10/2017 2:01 AM 018 2:01 (specimen) EST AM EST Yonathan Smith MD POINT OF CARE TEST ORDERABLE S Performing Organization Address City/State/[place] [address] (ABNORMAL) POCT Glucose (08/09/2017 11:42 PM EST) athologist Signature POC Glucose 283 (H) 65 - 199 [facility] mg/dL [facility] Comment: Supplemental ranges: <140 mg/dL before meals <180 mg/dL all other times of the day Specimen Anatomical Collection Method Collection Time Receive d Time (Source) Location / / Volume Laterality Blood specimen 08/09/2017 11:42 8 (specimen) PM EST 11:42 PM EST Yonathan Smith MD POINT OF CARE TEST ORDERABLE S Performing Organization Address City/State/[place] [address] POCT Glucose (08/09/2017 8:55 PM EST) athologist Signature POC Glucose 182 65 - 199 [place] [facility] mg/dL [facility] LABORATORY Comment: Supplemental ranges: <140 mg/dL before meals <180 mg/dL all other times of the day Specimen Anatomical Collection Method Collection Time Receive d Time (Source) Location / / Volume Laterality Blood specimen 08/09/2017 8:55 PM 018 8:55 (specimen) EST PM EST Yonathan Smith MD POINT OF CARE TEST ORDERABLE S Performing Organization Address City/State/[place] [address] (ABNORMAL) APTT (08/09/2017 6:42 PM EST) athologist Signature PTT 90 (H) 25 - 35 sec [facility] LABORATORY Comment: The recommended therapeutic range for fu ll dose, unfractionated heparin at [facility] is 80 ? [...] ORDERABLES Performing Organization Address City/[facility]/ZIP [facility] Phon e Number [address] POCT Glucose (08/09/2017 4:41 PM EST) athologist Signature POC Glucose 195 65 - 199 [facility]dL [facility] Comment: Supplemental ranges: <140 mg/dL before meals <180 mg/dL all other times of the day Specimen Anatomical Collection Method Collection Time Receive d Time (Source) Location / / Volume Laterality Blood specimen 08/09/2017 4:41 PM 018 4:41 (specimen) EST PM EST Yonathan Smith MD POINT OF CARE TEST ORDERABLE S Performing Organization Address City/[facility]/[place] [address] POCT Glucose (08/09/2017 12:29 PM EST) athologist Signature POC Glucose 140 65 - 199 [facility] mg/dL [facility] Comment: Supplemental ranges: <140 mg/dL before meals <180 mg/dL all other times of the day Specimen Anatomical Collection Method Collection Time Receive d Time (Source) Location / / Volume Laterality Blood specimen 08/09/2017 12:29 8 (specimen) PM EST 12:29 PM EST Yonathan Smith MD POINT OF CARE TEST ORDERABLE S Performing Organization Address City/State/[place] [address] POCT Glucose (08/09/2017 9:59 AM EST) P athologist Signature POC Glucose 135 65 - 199 [facility] mg/dL [facility] LABORATORY Comment: Supplemental ranges: <140 mg/dL before meals <180 mg/dL all other times of the day Specimen Anatomical Collection Method Collection Time Receive d Time (Source) Location / / Volume Laterality Blood specimen 08/09/2017 9:59 AM 018 9:59 (specimen) EST AM EST Yonathan Smith MD POINT OF CARE TEST ORDERABLE S Performing Organization Address City/[facility]/[place] [address] Specimen to Pathology (08/09/2017 [...] City/[facility]/[place] [address] Surgical Pathology Report (08/09/2017 8:40 AM EST) Component Value Ref Test Analysis Performed At Patholo gist Range Method Time Signature Surgical [id number] ? Location: [facility]; Formerly named [facility]; A [facility] Report The signing pathologist has (i) [...] Henrique Flower Verified: ??08/13/2017 ?Pathologist Performed at: ??-[facility] Dept. of Pathology, [place], [place] CLINICAL INFORMATION Specimen Submitted: A - [...] Organization Address City/State/ZIP [place] [address] Anaerobic Culture (08/09/2017 8:30 AM EST) [facility] gist Method Time Signature Anaerobic No anaerobic [facility] Culture organisms [facility] LABORATORY Specimen Anatomical Collection Method Collection Time [...] Organization Address City/State/[place] [address] (ABNORMAL) Abscess/Wound Aspirate Culture (08/09/2017 8:30 AM EST) Patholo gist Method Time Signature Abscess/Wound Moderate mixed [place] Aspirate bacterial CORNELIUS Culture morphotypes [facility] normal LABORATORY cutaneous leroy (A) Gram Stain Rare White Blood Cells [place] Few Gram Positive Cocci in pairs CORNELIUS () [facility] LABOR[facility]ORY Organism Gram Positive [place] Cocci in pairs CORNELIUS () [facility] LABORATORY Specimen Anatomical Collection Method [...] City/[facility]/ZIP Code Phon e Number [address] POCT Glucose (08/09/2017 4:28 AM EST) P athologist Signature POC Glucose 128 65 - 199 [facility] mg/dL [facility] LAB[facility]ORY Comment: Supplemental ranges: <140 mg/dL before meals <180 mg/dL all other times of the day Specimen Anatomical Collection Method Collection Time Receive d Time (Source) Location / / Volume Laterality Blood specimen 08/09/2017 4:28 AM 018 4:28 (specimen) EST AM EST Yonathan Smith MD POINT OF CARE TEST ORDERABLE S Performing Organization Address City/[facility]/[place] [address] ABORH Recheck Status (08/09/2017 1:10 AM EST) [facility] gist Method Time Signature ABORH Type Completed [facility] LABORATORY Specimen Anatomical Collection Method Collection Time Receive d Time (Source) Location / / Volume Laterality Blood specimen 08/09/2017 1:10 AM 018 1:35 (specimen) EST AM EST Resulting Agency Comment Spec In Lab Yonathan Smith MD BLOOD BANK ORDERABLES Performing Organization Address City/[facility]/[place] [address] Antibody screen (08/09/2017 1:10 AM EST) [facility] Method Time Signature Ab Screen Negative [facility] LABORATORY Expires at 08/12/2017 [facility] [id number] on: [facility] LABORATORY Specimen Anatomical Collection Method Collection Time Receive d Time (Source) Location / / Volume Laterality Blood specimen 08/09/2017 1:10 AM 018 1:35 (specimen) EST AM EST Resulting Agency Comment Spec In Lab Yonathan Smith MD BLOOD BANK ORDERABLES Performing Organization Address City/[facility]/[place] [address] ABO/Rh Typing (08/09/2017 1:10 [...] City/[facility]/[place] [address] (ABNORMAL) APTT (08/09/2017 1:10 AM EST) P athologist Signature PTT 86 (H) 25 - 35 sec [facility] LABORATORY Comment: The recommended therapeutic range for fu ll dose, unfractionated heparin at [facility] is 80 ? [...] Organization Address City/State/ZIP [place] [address] (ABNORMAL) Differential, Automated (08/09/2017 1:10 AM EST) [facility] gist Method Time Signature Neutrophils % 76.2 % [facility] LABORATORY Neutr Abs (ANC) 8.59 (H) 1.70 - [facility] 6.10 [facility] x10(3)/[facility] LABORATORY Lymphocytes % 11.0 % [facility] LABORATORY Lymphocytes Abs 1.2 0.9 - 3.2 [facility] x10(3)/[facility] LABORATORY Monocytes % 8.4 % [facility] LABORATORY Monocyte Abs 1.0 (H) 0.3 - 0.9 [facility] x10(3)/[facility] LABORATORY Eosinophils % 3.5 % [facility] LABORATORY Eosinophils Abs 0.4 0.0 - 0.4 [facility] x10(3)/[facility] LABORATORY Basophils % 0.5 % [facility] LABORATORY Basophils Abs 0.1 0.0 - 0.1 [facility] x10(3)/[facility] LABORATORY Immature Gran % 0.40 [...] Organization Address City/State/ZIP [place] [address] (ABNORMAL) Hemogram (08/09/2017 1:10 AM EST) Analysis Performed At Patho logist Time Signature WBC 11.3 (H) 4.0 - 9.5 [facility] x[facility](3[facility] LABORATORY RBC 3.47 (L) 4.58 - [facility] 5.54 [facility] x10(6)/[facility] LABORATORY Hemoglobin 10.0 (L) 13.7 - [facility] 16.5 gm/dL [facility] Hematocrit 31.9 (L) 40.5 - [facility] 48.5 % [facility] LABORATORY MCV 91.9 82.9 - [facility] 93.1 [facility] LABORATORY MCH 28.8 27.5 - [facility] 32.1 pg [facility] LABORATORY MCHC 31.3 (L) 32.0 - [facility] 35.7 gm/dL [facility] LABORATORY Platelets 234 145 - 357 [facility] x10(3)/[facility] LABORATORY RDWSD 54.0 (H) 36.0 - [facility] 45.0 [facility] LABORATORY RDWCV 16.2 (H) 11.4 - [facility] RYAN 13.8 % [facility] LABORATORY MPV 8.7 7.6 - 12.9 [facility] LABORATORY nRBC % Auto 0.0 % [facility] LABORATORY nRBC Abs Auto 0.000 0.000 - [facility] RYAN 0.000 [facility] x10(3)/[facility] LABORATORY Specimen Anatomical Collection Method Collection Time Receive d Time (Source) Location / / Volume Laterality Blood specimen 08/09/2017 1:10 AM 018 1:19 (specimen) EST AM EST Resulting Agency Comment Spec In Lab Yonathan Smith MD HEMATOLOGY ORDERABLES Performing Organization Address City/State/ZIP [place] [address] (ABNORMAL) Prothrombin Time (08/09/2017 1:10 AM EST) athologist Signature PT 16.0 (H) 11.8 - 14.0 [facility] [...] City/State/ZIP Code Phon e Number [place] [phone]OS[address] Drive (ABNORMAL) Basic Metabolic Panel (non-fasting) (08/09/2017 1:10 AM EST) athologist Signature Glucose Lvl 108 65 - 199 [facility] mg/dL [facility] LABORATORY Comment: Diabetes: >=200 [...] or in patients with acute kidney failure. [email or web address] [email or web address] Specimen Anatomical Collection Method Collection Time Receive d Time (Source) Location / / Volume Laterality Blood specimen 08/09/2017 1:10 AM 018 1:19 (specimen) EST AM EST Resulting Agency Comment Spec In Lab Yonathan Smith MD CHEMISTRY ORDERABLES Performing Organization Address City/[facility]/ZIP Code Phon e Number [address] POCT Glucose (08/09/2017 12:05 AM EST) athologist Signature POC Glucose 128 65 - 199 [facility] mg/dL [facility] LABORATORY Comment: Supplemental ranges: <140 mg/dL before meals <180 mg/dL all other times of the day Specimen Anatomical Collection Method Collection Time Receive d Time (Source) Location / / Volume Laterality Blood specimen 08/09/2017 12:05 8 (specimen) AM EST 12:05 AM EST Yonathan Smith MD POINT OF CARE TEST ORDERABLE S Performing Organization Address City/[facility]/[place] [address] (ABNORMAL) POCT Glucose (08/08/2017 7:36 PM EST) athologist Signature POC Glucose 215 (H) 65 - 199 [facility] mg/dL [facility] Comment: Supplemental ranges: <140 mg/dL before meals <180 mg/dL all other times of the day Specimen Anatomical Collection Method Collection Time Receive d Time (Source) Location / / Volume Laterality Blood specimen 08/08/2017 7:36 PM 018 7:36 (specimen) EST PM EST Yonathan Smith MD POINT OF CARE TEST ORDERABLE S Performing Organization Address City/[facility]/[place] [address] (ABNORMAL) POCT Glucose (08/08/2017 6:23 PM EST) athologist Signature POC Glucose 216 (H) 65 - 199 [facility] mg/dL [facility] Comment: Supplemental ranges: <140 mg/dL before meals <180 mg/dL all other times of the day Specimen Anatomical Collection Method Collection Time Receive d Time (Source) Location / / Volume Laterality Blood specimen 08/08/2017 6:23 PM 018 6:23 (specimen) EST PM EST Yonathan Smith MD POINT OF CARE TEST ORDERABLE S Performing Organization Address [facility]/[place] [address] (ABNORMAL) APTT (08/08/2017 6:00 PM EST) athologist Signature PTT 97 (H) 25 - 35 sec [facility] LABORATORY Comment: The recommended therapeutic range for fu ll dose, unfractionated heparin at [facility] is 80 ? [...] City/[facility]/[place] [address] POCT Glucose (08/08/2017 4:42 PM EST) athologist Signature POC Glucose 78 65 - 199 [facility] R[facility]AN mg/dL [facility] LABOR[facility] Comment: Supplemental ranges: <140 mg/dL before meals <180 mg/dL all other times of the day Specimen Anatomical Collection Method Collection Time Receive d Time (Source) Location / / Volume Laterality Blood specimen 08/08/2017 4:42 PM 018 4:42 (specimen) EST PM EST Yonathan Smith MD POINT OF CARE TEST ORDERABLE S Performing Organization Address City/State/[place] [address] (ABNORMAL) POCT Glucose (08/08/2017 4:01 PM EST) P athologist Signature POC Glucose 58 (L) 65 - 199 [facility] mg/dL [facility] Comment: Supplemental ranges: <140 mg/dL before meals <180 mg/dL all other times of the day Specimen Anatomical Collection Method Collection Time Receive d Time (Source) Location / / Volume Laterality Blood specimen 08/08/2017 4:01 PM 018 4:01 (specimen) EST PM EST Yonathan Smith MD POINT OF CARE TEST ORDERABLE S Performing Organization Address City/State/[place] [address] POCT Glucose (08/08/2017 11:51 AM EST) P athologist Signature POC Glucose 90 65 - 199 [facility] mg/dL [facility] Comment: Supplemental ranges: <140 mg/dL before meals <180 mg/dL all other times of the day Specimen Anatomical Collection Method Collection Time Receive d Time (Source) Location / / Volume Laterality Blood specimen 08/08/2017 11:51 8 (specimen) AM EST 11:51 AM EST Yonathan Smith MD POINT OF CARE TEST ORDERABLE S Performing Organization Address City/State/ZIP Code Phon e Number [address] (ABNORMAL) APTT (08/08/2017 10:27 AM EST) P athologist Signature PTT 64 (H) 25 - 35 sec [facility] LABORATORY Comment: The recommended therapeutic range for fu ll dose, unfractionated heparin at [facility] is 80 ? [...] City/[facility]/ZIP Code Phon e Number [address] POCT Glucose (08/08/2017 8:02 AM EST) athologist Signature POC Glucose 178 65 - 199 [facility] mg/dL [facility] LABORATORY Comment: Supplemental ranges: <140 mg/dL before meals <180 mg/dL all other times of the day Specimen Anatomical Collection Method Collection Time Receive d Time (Source) Location / / Volume Laterality Blood specimen 08/08/2017 8:02 AM 018 8:02 (specimen) EST AM EST Yonathan Smith MD POINT OF CARE TEST ORDERABLE S Performing Organization Address City/[facility]/[place] [address] (ABNORMAL) APTT (08/08/2017 4:51 AM EST) athologist Signature PTT >160 25 - 35 [facility] (Critical) sec [facility] LABORATORY Comment: Called by: HOWARD, Read back by: Melba Jaramillo, Date/Time:08/08/17 05:43. The recommended therapeutic range for fu ll dose, unfractionated heparin at [facility] is 80 ? [...] Address City/State/ZIP Code [place] [address] (ABNORMAL) Differential, Automated (08/08/2017 4:51 AM EST) [facility] Method Time Signature Neutrophils % 77.9 % [facility] LABORATORY Neutr Abs (ANC) 8.17 (H) 1.70 - [facility] 6.10 [facility] x10(3)/[facility] LABORATORY Lymphocytes % 10.3 % [facility] LABORATORY Lymphocytes Abs 1.1 0.9 - 3.2 [facility] x10(3)/[facility] LABORATORY Monocytes % 7.0 % [facility] LABORATORY Monocyte Abs 0.7 0.3 - 0.9 [facility] x10(3)/[facility] LABORATORY Eosinophils % 3.6 % [facility] LABORATORY Eosinophils Abs 0.4 0.0 - 0.4 [facility] x10(3)/[facility] LABORATORY Basophils % 0.5 % [facility] LABORATORY Basophils Abs 0.0 0.0 - 0.1 [facility] x10(3)/[facility] LABORATORY Immature Gran % 0.70 [...] Organization Address City/State/ZIP [place] [address] (ABNORMAL) Hemogram (08/08/2017 4:51 AM EST) Analysis Performed At Patho logist Time Signature WBC 10.5 (H) 4.0 - 9.5 [facility](3[facility] LABORATORY RBC 3.27 (L) 4.58 - [place] 5.54 [facility] x10(6)/[facility] LABORATORY Hemoglobin 9.3 (L) 13.7 - [facility] 16.5 gm/dL [facility] LABORATORY Hematocrit 30.3 (L) 40.5 - [facility] 48.5 % [facility]ATORY MCV 92.7 82.9 - [facility] 93.1 [facility] LABORATORY MCH 28.4 27.5 - [place] 32.1 pg [facility] LABORATORY MCHC 30.7 (L) 32.0 - [facility] RYAN 35.7 gm/dL [facility] LABORATORY Platelets 252 145 - 357 [facility] x10(3)/[facility] LABORATORY RDWSD 54.6 (H) 36.0 - [facility] 45.0 [facility] LABORATORY RDWCV 16.2 (H) 11.4 - [facility] RYAN 13.8 % [facility] LABORATORY MPV 9.1 7.6 - 12.9 [facility] LABORATORY nRBC % Auto 0.0 % [facility] LABORATORY nRBC Abs Auto 0.000 0.000 - [facility] RYAN 0.000 [facility] x10(3)/[facility] LABORATORY Specimen Anatomical Collection Method Collection Time Receive d Time (Source) Location / / Volume Laterality Blood specimen 08/08/2017 4:51 AM 018 5:14 (specimen) EST AM EST Resulting Agency Comment Spec In Lab Yonathan Smith MD HEMATOLOGY ORDERABLES Performing Organization Address City/State/ZIP Code Phon e Number [place] [phone] HOSPITAL LABORATORY [address] (ABNORMAL) Prothrombin Time (08/08/2017 4:51 AM EST) P athologist Signature PT 18.1 (H) 11.8 - 14.0 [facility] [...] Organization Address City/State/ZIP [place] [address] (ABNORMAL) Basic Metabolic Panel (non-fasting) (08/08/2017 4:51 AM EST) athologist Signature Glucose Lvl 229 (H) 65 - 199 [facility] mg/dL [facility]OR[facility] Comment: Diabetes: >=200 [...] or in patients with acute kidney failure. [email or web address] [email or web address] Specimen Anatomical Collection Method Collection Time Receive d Time (Source) Location / / Volume Laterality Blood specimen 08/08/2017 4:51 AM 018 5:14 (specimen) EST AM EST Resulting Agency Comment Spec In Lab Yonathan Smith MD CHEMISTRY ORDERABLES Performing Organization Address City/[facility] Phon e Number [address] POCT Glucose (08/08/2017 4:20 AM EST) athologist Signature POC Glucose 193 65 - 199 [facility] mg/dL [facility] Comment: Supplemental ranges: <140 mg/dL before meals <180 mg/dL all other times of the day Specimen Anatomical Collection Method Collection Time Receive d Time (Source) Location / / Volume Laterality Blood specimen 08/08/2017 4:20 AM 018 4:20 (specimen) EST AM EST Yonathan Smith MD POINT OF CARE TEST ORDERABLE S Performing Organization Address City/[facility]/ZIP Code Phon e Number [address] POCT Glucose (08/07/2017 11:11 PM EST) P athologist Signature POC Glucose 124 65 - 199 [facility] mg/dL [facility] Comment: Supplemental ranges: <140 mg/dL before meals <180 mg/dL all other times of the day Specimen Anatomical Collection Method Collection Time Receive d Time (Source) Location / / Volume Laterality Blood specimen 08/07/2017 11:11 8 (specimen) PM EST 11:11 PM EST Yonathan Smith MD POINT OF CARE TEST ORDERABLE S Performing Organization Address City/[facility]/[place] [address] (ABNORMAL) APTT (08/07/2017 10:18 PM EST) athologist Signature PTT 114 (H) 25 - 35 sec [facility] LABORATORY Comment: The recommended therapeutic range for fu ll dose, unfractionated heparin at [facility] is 80 ? [...] HEMATOLOGY ORDERABLES Performing Organization Address [facility]/[place] [address] POCT Glucose (08/07/2017 8:10 PM EST) athologist Signature POC Glucose 140 65 - 199 [facility] mg/dL [facility] Comment: Supplemental ranges: <140 mg/dL before meals <180 mg/dL all other times of the day Specimen Anatomical Collection Method Collection Time Receive d Time (Source) Location / / Volume Laterality Blood specimen 08/07/2017 8:10 PM 018 8:10 (specimen) EST PM EST Yonathan Smith MD POINT OF CARE TEST ORDERABLE S Performing Organization Address City/[facility]/ZIP Code Phon e Number [address] POCT Glucose (08/07/2017 5:27 PM EST) athologist Signature POC Glucose 187 65 - 199 [facility] mg/dL [facility] Comment: Supplemental ranges: <140 mg/dL before meals <180 mg/dL all other times of the day Specimen Anatomical Collection Method Collection Time Receive d Time (Source) Location / / Volume Laterality Blood specimen 08/07/2017 5:27 PM 018 5:27 (specimen) EST PM EST Yonathan Smith MD POINT OF CARE TEST ORDERABLE S Performing Organization Address City/[facility]/ZIP Code Phon e Number [address] POCT Glucose (08/07/2017 3:29 PM EST) athologist Signature POC Glucose 86 65 - 199 [facility] mg/dL [facility] Comment: Supplemental ranges: <140 mg/dL before meals <180 mg/dL all other times of the day Specimen Anatomical Collection Method Collection Time Receive d Time (Source) Location / / Volume Laterality Blood specimen 08/07/2017 3:29 PM 018 3:29 (specimen) EST PM EST Yonathan Smith MD POINT OF CARE TEST ORDERABLE S Performing Organization Address [facility] [place] [address] (ABNORMAL) APTT (08/07/2017 2:50 PM EST) athologist Signature PTT 60 (H) 25 - 35 sec [facility] Comment: The recommended therapeutic range for fu ll dose, unfractionated heparin at [facility] is 80 ? [...] ORDERABLES Performing Organization Address City/[facility]/ZIP [facility] [place] [address] (ABNORMAL) POCT Glucose (08/07/2017 2:23 PM EST) athologist Signature POC Glucose 55 (L) 65 - 199 [facility] mg/dL [facility] Comment: Supplemental ranges: <140 mg/dL before meals <180 mg/dL all other times of the day Specimen Anatomical Collection Method Collection Time Receive d Time (Source) Location / / Volume Laterality Blood specimen 08/07/2017 2:23 PM 018 2:23 (specimen) EST PM EST Yonathan Smith MD POINT OF CARE TEST ORDERABLE S Performing Organization Address City/State/ZIP Code Phon e Number [address] POCT Glucose (08/07/2017 12:08 PM EST) P athologist Signature POC Glucose 77 65 - 199 [facility] mg/dL [facility] Comment: Supplemental ranges: <140 mg/dL before meals <180 mg/dL all other times of the day Specimen Anatomical Collection Method Collection Time Receive d Time (Source) Location / / Volume Laterality Blood specimen 08/07/2017 12:08 8 (specimen) PM EST 12:08 PM EST Yonathan Smith MD POINT OF CARE TEST ORDERABLE S Performing Organization Address City/State/[place] [address] (ABNORMAL) Differential, Automated (08/07/2017 7:30 AM EST) Patholo gist Method Time Signature Neutrophils % 73.8 % [facility] Neutr Abs (ANC) 7.17 (H) 1.70 - [facility] 6.10 [facility] x10(3)/[facility] LABORATORY Lymphocytes % 12.2 % [facility] Lymphocytes Abs 1.2 0.9 - 3.2 [facility] x10(3)/[facility] LABORATORY Monocytes % 9.0 % [facility] Monocyte Abs 0.9 0.3 - 0.9 [facility] x10(3)/[facility] LABORATORY Eosinophils % 3.9 % [facility] Eosinophils Abs 0.4 0.0 - 0.4 [facility] x10(3)/[facility] LABORATORY Basophils % 0.6 % [facility] Basophils Abs 0.1 0.0 - 0.1 [facility] x10(3)/[facility] LABORATORY Immature Gran % 0.50 [...] Organization Address City/State/ZIP [place] [address] (ABNORMAL) Hemogram (08/07/2017 7:30 AM EST) Analysis Performed At Patho logist Time Signature WBC 9.7 (H) 4.0 - 9.5 [facility] x10(3)/[facility] LABORATORY RBC 3.54 (L) 4.58 - [facility] 5.54 [facility] x10(6)/[facility] LABORATORY Hemoglobin 9.9 (L) 13.7 - [facility] 16.5 gm/dL [facility] Hematocrit 32.3 (L) 40.5 - [facility] 48.5 % [facility] MCV 91.2 82.9 - [facility] 93.1 [facility] LABORATORY MCH 28.0 27.5 - [facility] 32.1 pg [facility] MCHC 30.7 (L) 32.0 - [facility] 35.7 gm/dL [facility] Platelets 312 145 - 357 [facility] x10(3)/[facility] LABORATORY RDWSD 53.2 (H) 36.0 - [facility] 45.0 [facility] RDWCV 16.0 (H) 11.4 - [facility] 13.8 % [facility] MPV 8.9 7.6 - 12.9 [facility] LABORATORY nRBC % Auto 0.0 % [facility] nRBC Abs Auto 0.000 0.000 - [facility] 0.000 [facility] x10(3)/[facility] LABORATORY Specimen Anatomical Collection Method Collection Time Receive d Time (Source) Location / / Volume Laterality Blood specimen 08/07/2017 7:30 AM 018 7:45 (specimen) EST AM EST Resulting Agency Comment Spec In Lab Yonathan Smith MD HEMATOLOGY ORDERABLES Performing Organization Address City/State/ZIP [place] [address] (ABNORMAL) Basic Metabolic Panel (non-fasting) (08/07/2017 7:30 AM EST) P athologist Signature Glucose Lvl 80 65 - 199 [facility] mg/dL [facility] Comment: Diabetes: >=200 [...] or in patients with acute kidney failure. [email or web address] Specimen Anatomical Collection Method Collection Time Receive d Time (Source) Location / / Volume Laterality Blood specimen 08/07/2017 7:30 AM 018 7:45 (specimen) EST AM EST Resulting Agency Comment Spec In Lab Yonathan Smith MD CHEMISTRY ORDERABLES Performing Organization Address City/[facility]/ZIP Code Phon e Number [address] POCT Glucose (08/07/2017 7:27 AM EST) athologist Signature POC Glucose 81 65 - 199 [facility] mg/dL [facility] Comment: Supplemental ranges: <140 mg/dL before meals <180 mg/dL all other times of the day Specimen Anatomical Collection Method Collection Time Receive d Time (Source) Location / / Volume Laterality Blood specimen 08/07/2017 7:27 AM 018 7:27 (specimen) EST AM EST Yonathan Smith MD POINT OF CARE TEST ORDERABLE S Performing Organization Address City/[facility]/ZIP Code Phon e Number [address] APTT (08/07/2017 7:04 AM EST) athologist Signature PTT 34 25 - 35 sec [facility] Comment: The recommended therapeutic range for fu ll dose, unfractionated heparin at [facility] is 80 ? [...] City/[facility]/ZIP Code Phon e Number [address] (ABNORMAL) Prothrombin Time (08/07/2017 7:04 AM EST) athologist Signature PT 17.3 (H) 11.8 - 14.0 [facility] LABORATORY INR 1.4 (H) 0.9 [...] Address City/State/ZIP Code Phon e Number [address] POCT Glucose (08/07/2017 4:03 AM EST) athologist Signature POC Glucose 93 65 - 199 [facility] mg/dL [facility] Comment: Supplemental ranges: <140 mg/dL before meals <180 mg/dL all other times of the day Specimen Anatomical Collection Method Collection Time Receive d Time (Source) Location / / Volume Laterality Blood specimen 08/07/2017 4:03 AM 018 4:03 (specimen) EST AM EST Yonathan Smith MD POINT OF CARE TEST ORDERABLE S Performing Organization Address City/State/ZIP Code Phon e Number [address] POCT Glucose (08/07/2017 12:04 AM EST) athologist Signature POC Glucose 107 65 - 199 [facility] mg/dL [facility] Comment: Supplemental ranges: <140 mg/dL before meals <180 mg/dL all other times of the day Specimen Anatomical Collection Method Collection Time Receive d Time (Source) Location / / Volume Laterality Blood specimen 08/07/2017 12:04 8 (specimen) AM EST 12:04 AM EST Yonathan Smith MD POINT OF CARE TEST ORDERABLE S Performing Organization Address City/State/ZIP Code Phon e Number [address] POCT Glucose (08/06/2017 7:56 PM EST) P athologist Signature POC Glucose 178 65 - 199 [facility] mg/dL [facility] Comment: Supplemental ranges: <140 mg/dL before meals <180 mg/dL all other times of the day Specimen Anatomical Collection Method Collection Time Receive d Time (Source) Location / / Volume Laterality Blood specimen 08/06/2017 7:56 PM 018 7:56 (specimen) EST PM EST Yonathan Smith MD POINT OF CARE TEST ORDERABLE S Performing Organization Address City/State/ZIP Code Phon e Number [address] TcPO2 (08/06/2017 2:32 PM EST) Component Value Ref Test Analysis Performed At Patholo gist Range Method Time Signature VB Text Department: Vascular Surgery Lab VASCUBASE Report Patient: [id number] (GREGORY HOANG) CPT: 3100064 ICD10: I99.8 Referring Physician: YONATHAN SMITH ?? [...] Mcgrath RN) 0157 (Given - Provider: Melba Jarmaillo RN)0807 (Given - Provider: Chiquis Mcgrath RN)1159 [...] documented in this encounter Care Teams Project Account Manager Relationship Specialty Start Date End Date Lovely Vicente MD PCP - General 04/16/[address] [place] [address] documented as of this encounter
--- OUTSIDE RECORDS SUMMARY | 2022-04-13 08:12 | XMS_ITS | Encounter Summary ---
:1945 Author Organization [facility] [place] [address] Care Team Providers Name Role Phone Lovely Vicente MD Primary Care Provider Reason for Visit Reason Comments Deep Vein Thrombosis Auth/Cert Specialty Diagnoses / Procedures Referred By Contact Refer red To Contact Diagnoses Critical lower limb ischemia CELLULITIS RT FOOT Procedures EMERGENCY Referral ID Status Reason Start Date Expiration Date Visits Requ ested Visits Authorized [id number] 1 1 Encounter Details Date Type Department Care Team Description 08/04/2017 Office Visit Vascular Surgery at [facility] itical lower limb [facility] [place] [facility] [address] [place] VASCULAR SURGERY [id number] [place] [address] [phone] Social History Tobacco Use Types Packs/Day Years [...] discharged on Coumadin. ??[place] [facility] [place] with mottled toes on [...] Dolan MD [facility] [place] [address] (Wo rk) 05/28/2022 Laboratory Appointment Lab 05/28/2022 Office Visit Cardiology Zulma Dolan MD [facility] [place] [address] Liz Poole PA [facility] [place] [address] 06/10/2022 Office Visit Dermatology Laura Scherer MD [facility] ER DR [address] [place], [place] 0[address] (Wo rk) documented as of this encounter Visit Diagnoses Diagnosis Critical lower limb ischemia Unspecified circulatory system disorder documented in this encounter Care Teams Rental Coordinator Relationship Specialty Start Date End Date Lovely Vicente MD PCP - General 04/16/15 [facility] [address] [place], [place] [address] documented as of this encounter
--- OUTSIDE RECORDS SUMMARY | 2022-04-13 08:12 | XMS_ITS | Encounter Summary ---
:1945 [place] [address] Care Team Providers Name Role Phone Lovely Vicente MD Primary Care Provider Encounter Details Date Type Department Care Team Description 08/04/2017 Notes Only Cardiac Surgery Makayla Wilson APRN [facility] [place] [address] CARDIAC SURGERY [phone] [place], [place] [address] (Wo rk) Social History [...] Cardiology Zulma Dolan MD [facility] [place], [place] 0[address] (Wo rk) 05/28/2022 Laboratory Appointment Lab 05/28/2022 Office Visit Cardiology Zulma Dolan MD [facility] [place] [address] Liz Poole PA [facility] [place] [address] 06/10/2022 Office Visit Dermatology Laura Scherer MD [facility] [address] [place], [place] [address] (Wo rk) documented as of this encounter Visit Diagnoses Not on filedocumented in this encounter Care Teams Tank Processor Relationship Specialty Start Date End Date Lovely Vicente MD PCP - General 04/16/[address] [place] [address] documented as of this encounter
--- OUTSIDE RECORDS SUMMARY | 2022-04-13 08:12 | XMS_ITS | Encounter Summary ---
:1945 [place] [address] Care Team Providers Name Role Phone Lovely Vicente MD Primary Care Provider Encounter Details Date Type Department Care Team Description 08/04/2017 Notes Only Cardiac Surgery Makayla Wilson [facility] [place] [address] CARDIAC SURGERY [phone] [place], [place] 0[address] (Wo rk) Social [...] Zulma Dolan MD [facility] [address] [place], [place] [address] (Wo rk) 05/28/2022 Laboratory Appointment Lab 05/28/2022 Office Visit Cardiology Zulma Dolan MD [facility] [place] [address] Liz Poole PA [facility] [place] [address] 06/10/2022 Office Visit Dermatology Laura Scherer MD [facility] DR [address]MAT [facility] [place], [place] [address] (Wo rk) documented as of this encounter Visit Diagnoses Not on filedocumented in this encounter Care Teams Ends Down Checker Relationship Specialty Start Date End Date Lovely Vicente MD PCP - General 04/16/[address] [place] [address] documented as of this encounter
--- OUTSIDE RECORDS SUMMARY | 2022-04-13 08:12 | XMS_ITS | Encounter Summary ---
:1945 Author Organization [facility] [place] [address] Care Team Providers Name Role Phone Lovely Vicente MD Primary Care Provider Encounter Details Date Type Department Care Team Description 08/04/2017 Orders Only Cardiac Surgery Makayla Wilson APRN [facility] [place] [address] CARDIAC SURGERY [phone] [place], [place] 0[address] (Wo rk) Social History [...] [facility] [place], [place] [address] (Wo rk) 05/28/2022 Laboratory Appointment Lab 05/28/2022 Office Visit Cardiology Zulma Dolan [place] [facility] [address] Liz Poole PA [facility] [place] [address] 06/10/2022 Office Visit Dermatology Laura Scherer MD [facility] ER DR [address] [place], [place] [address] (Wo rk) documented as of this encounter Visit Diagnoses Not on filedocumented in this encounter Care Teams Clod Puller Relationship Specialty Start Date End Date Lovely Vicente MD PCP - General 04/16/[address] [place] [address] documented as of this encounter
--- OUTSIDE RECORDS SUMMARY | 2022-04-13 08:12 | XMS_ITS | Encounter Summary ---
:1945 Author Organization [place] [place] [address] Care Team Providers Name Role Phone Lovely Vicente MD Primary Care Provider Reason for Visit Auth/Cert Specialty Diagnoses / Procedures Referred By Contact Refer red To Contact Diagnoses Critical lower limb ischemia CELLULITIS RT FOOT Procedures EMERGENCY Referral ID Status Reason Start Date Expiration Date Visits Requ ested Visits Authorized [id number] 1 1 Encounter Details Date Type Department Care Team Description 08/06/2017 Hospital Encounter [facility] [place] [address] Social History Tobacco Use Types Packs/Day [...] Dolan MD [facility] [place], [place] [address] (Wo rk) 05/28/2022 Laboratory Appointment Lab 05/28/2022 Office Visit Cardiology Zulma Dolan MD [facility] [place] [address] Liz Poole PA [facility] [place] [address] 06/10/2022 Office Visit Dermatology Laura Scherer MD [facility] DR [address] [place], [place] 0[address] (Wo rk) documented as of this encounter Visit Diagnoses Not on filedocumented in this encounter Care Teams Meter Reading Clerk Relationship Specialty Start Date End Date Lovely Vicente MD PCP - General 04/16/[address] [place] [address] documented as of this encounter
--- OUTSIDE RECORDS SUMMARY | 2022-04-13 08:12 | XMS_ITS | Encounter Summary ---
:1945 [place] [address] Care Team Providers Name Role Phone Lovely Vicente MD Primary Care Provider Reason for Visit Auth/Cert Specialty Diagnoses / Procedures Referred By Contact Refer red To Contact Diagnoses Critical lower limb ischemia CELLULITIS RT FOOT Procedures EMERGENCY Referral ID Status Reason Start Date Expiration Date Visits Requ ested Visits Authorized [id number] 1 1 Encounter Details Date Type Department Care Team Description 08/09/2017 Anesthesia Event Main Operating Room Daniele Lizama MD [facility] [place] [address] [facility] Rob Jones MD [facility] [place] [address] [place] [address] Anesthesia Record Procedure Summary Procedure Name [...] Knowles, Dory arm), right; VAMSI Rios, RN puhx-exc-iogwgv catheter system; 20 gauge; 08/16/17; 1047 PIV 07/29/17; 1413; median 07/29/17 1413 by 08/16/17 1047 by cubital vein (antecubital Magdalene Hickey Williams, Dory fossa), left; VAMSI Wyatt, RN gavn-roq-zviiyi catheter system; 20 gauge; 08/16/17; 1047 PIV 08/06/17; 1742; cephalic 08/06/17 1742 by 0920 by vein (lateral side of Taylor Laureano Danah y, Caitlyn C, arm), right; VAMSI BONNER skgs-yle-pmxlgj catheter system; 22 gauge, 1 in length; Eliseo LAUREANO RN VAS; distraction, intradermal injection, tolerated well, appears comfortable; 0; 08/16/17; 0920 Wound 08/07/17; 1335; knee; 08/07/17 1335 by 08/16/17 1047 by laceration; wound occured Barbara Albert iams, Dory BULL FIDDLE PLAYER; 08/16/17; 1047 VAMSI Alonzo, RN PIV 08/07/17; 1734; cephalic 08/07/17 1734 by 1047 by vein (lateral side of Kendrick, Carlos W, Willia ms, Dory arm), left; MARCIE Wyatt RN omxw-ybu-ovvuwx catheter system; 22 gauge; distraction, intradermal injection, [...] Santillan MD - 08/09/2017 9:01 AM EST [facility] Department of Anesthesiology Post-procedure Note Patient: Don Fatima Procedure Summary Date Anesthesia Start Anesthesia Stop Room / Location 08/09/17 0802 0901 [facility] OR 14 / [facility] MAIN OR Procedure Diagnosis Surgeon Responsible Provider AMPUTATION, 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 Nerve [...] SETUP performed by Manny Mcknight MD at [facility] MAIN OR ??? PRO CABG, ARTERIAL, SINGLE N/A 07/07/2017 @CABG, USING ARTERIAL GRAFT;SINGLE ARTERIAL GRAFT (WRVU 33.75) performed by Yuan Retana MD at [facility] MAIN OR ??? PRO CABG, ARTERY-VEIN, TWO N/A 07/07/2017 @CABG, TWO VENOUS GRAFTS & ARTERIAL GRAFT (WRVU 7.93) performed by Yuan Retana MD at [facility] MAIN OR ??? PRO COLONOSCOPY, REMV LESN, SNARE 01/16/2014 COLONOSCOPY, POLYPECTOMY, REMOVAL LESION BY SNARE performed by Nohemi Jaimes MD at [facility] ENDOSCOPY ??? PRO ENDOSCOPY W/VIDEO-ASST VEIN HARVEST, CABG Right 07/07/2017 ENDOSCOPIC HARVEST VEIN(S) FOR CABG (WRVU 0.31) performed by Yuan Retana MD at [facility] MAIN OR ??? PRO THYROIDECTOMY 03/28/2013 THYROIDECTOMY, TOTAL OR COMPLETE performed by Manny Mcknight MD at [facility] MAIN OR Social History Substance [...] adequate IV access. Brody Santillan MD PGY-2, Truck Driving Pager #[phone] Anesthesiology Staff (Dewhirst): Pre-op summary note as [...] MD [facility] [place], [place] [address] (Wo rk) 05/28/2022 Laboratory Appointment Lab 05/28/2022 Office Visit Cardiology Zulma Dolan MD [facility] [place] [address] Liz Poole PA [facility] [place] [address] 06/10/2022 Office Visit Dermatology Laura Scherer MD [facility] [address]MAT [place], [...] Length: 10 cm Gauge: 21 Needle Type: N-tdlqy-zncsz Medication injection made in crementally with aspirations. [...] Procedure) documented in this encounter Care Teams Fried Cake Maker Relationship Specialty Start Date End Date Lovely Vicenet MD PCP - General 04/16/15 [facility] [address] [place] [address] documented as of this encounter
--- OUTSIDE RECORDS SUMMARY | 2022-04-13 08:12 | XMS_ITS | Encounter Summary ---
:1945 Author Organization [facility] [place] [address] Care Team Providers Name Role Phone Lovely Vicente MD Primary Care Provider Reason for Visit Auth/Cert Specialty Diagnoses / Procedures Referred By Contact Refer red To Contact Diagnoses Critical lower limb ischemia CELLULITIS RT FOOT Procedures EMERGENCY Referral ID Status Reason Start Date Expiration Date Visits Requ ested Visits Authorized [id number] 1 1 Encounter Details Date Type Department Care Team Description 08/04/2017 [facility] [place] thrombosis of [facility] [place] [phone] Social History Tobacco Use Types Packs/Day Years [...] Zulma Dolan MD [facility] [place], [place] [address] (Wo rk) 05/28/2022 Laboratory Appointment Lab 05/28/2022 Office Visit Cardiology Zulma Dolan MD [facility] [place] [address] Liz Poole PA [facility] [place] [address] 06/10/2022 Office Visit Dermatology Laura Scherer MD [facility] DR [address]DERMAT [place], [...] Component Value Ref Test Analysis Performed At [facility] Range Method Time Signature VB Text Department: Vascular Surgery Lab VASCUBASE Report Patient: [id number] (DON HOANG) CPT: 96752 ICD10: I82.541 Referring Physician: MEÑO HUTSON ?? [...] per Dr. Clement. Patient seeing Dr. Anthony heatno today in clinic. Electronically Signed by: ELIZABETH [...] extremity documented in this encounter Care Teams Drill Rig Operator Relationship Specialty Start Date End Date Lovely Vicente MD PCP - General 04/16/[address] [place] [address] documented as of this encounter
--- OUTSIDE RECORDS SUMMARY | 2022-04-13 08:12 | XMS_ITS | Encounter Summary ---
:1945 Author Organization [facility] [place] [address] Care Team Providers Name Role Phone Lovely Vicente MD Primary Care Provider Reason for Visit Auth/Cert Specialty Diagnoses / Procedures Referred By Contact Refer red To Contact Diagnoses Critical lower limb ischemia CELLULITIS RT FOOT Procedures EMERGENCY Referral ID Status Reason Start Date Expiration Date Visits Requ ested Visits Authorized [id number] 1 1 Encounter Details Date Type Department Care Team Description 08/06/2017 Laboratory Appointment Lab at [facility] Ischemia of foot [facility] [place] [address] Social History Tobacco Use Types Packs/Day [...] [facility] er [address] [place] [address] (Wo rk) 05/28/2022 Laboratory Appointment Lab 05/28/2022 Office Visit Cardiology Zulma Dolan MD [facility] [place] [address] Liz Poole PA [facility] [place] [address] 06/10/2022 Office Visit Dermatology Laura Scherer MD [facility] ER [address] [facility] [place], [place] [address] (Wo rk) documented as of [...] Signature Prealbumin 19 (L) 20 - 40 [facility] mg/dL [facility] LABORATORY Comment: Prealbumin levels are [...] [place] [address] (ABNORMAL) Basic Metabolic Panel (non-fasting) (08/06/2017 12:32 PM EST) P athologist Signature Glucose Lvl 92 65 - 199 [facility] mg/dL [facility] [...] or in patients with acute kidney failure. [email or web address] Specimen Anatomical Collection Method Collection Time Receive d Time (Source) Location / / Volume Laterality Blood specimen 08/06/2017 12:32 8 1:15 (specimen) PM EST PM EST Resulting Agency Comment Spec In Lab Arik Clement MD CHEMISTRY ORDERABLES Performing Organization Address City/State/[place] [address] (ABNORMAL) Hemogram (08/06/2017 12:32 PM EST) Analysis Performed At Patho logist Time Signature WBC 11.8 (H) 4.0 - 9.5 [facility] x10(3)/[facility] LABORATORY RBC 3.49 (L) 4.58 - [facility] 5.54 [facility] x10(6)/[facility] LABORATORY Hemoglobin 9.9 (L) 13.7 - [facility] 16.5 gm/dL [facility] LABOR[facility]ORY Hematocrit 32.0 (L) 40.5 - [facility] 48.5 % [facility]ATORY MCV 91.7 82.9 - [facility] 93.1 [facility] LABORATORY MCH 28.4 27.5 - [facility] DAVIS 32.1 pg [facility] LABORATORY MCHC 30.9 (L) 32.0 - [facility] 35.7 gm/dL [facility] LABORATORY Platelets 326 145 - 357 [facility] x10(3)/[facility] LABORATORY RDWSD 53.4 (H) 36.0 - [place] 45.0 [facility] LABORATORY RDWCV 16.0 (H) 11.4 - [place] RY[facility] 13.8 % [facility] LABORATORY MPV 9.1 7.6 - 12.9 [facility] LABORATORY nRBC % Auto 0.0 % [facility] LABORATORY nRBC Abs Auto 0.000 0.000 - [place] DAV[facility] 0.000 [facility] x10(3)/[facility] LABORATORY Specimen Anatomical Collection Method Collection Time Receive d Time (Source) Location / / Volume Laterality Blood specimen 08/06/2017 12:32 8 1:15 (specimen) PM EST PM EST Resulting Agency Comment Spec In Lab Arik Clement MD HEMATOLOGY ORDERABLES Performing Organization Address City/State/ZIP Code Phon e Number [place] [phone] documented in this encounter Visit Diagnoses Diagnosis Ischemia of foot Unspecified circulatory system disorder documented in this encounter Care Teams Automotive Electrical Fitter Relationship Specialty Start Date End Date Lovely Vicente MD PCP - General 04/16/[address] [place] [address] documented as of this encounter
--- OUTSIDE RECORDS SUMMARY | 2022-04-13 08:12 | XMS_ITS | Encounter Summary ---
:1945 [place] [address] Care Team Providers Name Role Phone Lovely Vicente MD Primary Care Provider Encounter Details Date Type Department Care Team Description 08/04/2017 Notes Only Pain Management at Barbra Bruno, STACIE [facility] [place] [address] [place] [address] [phone] (Wo rk) Social History Tobacco Use Types [...] bid) at this time. Barbra Soares, MSN, LIFE SCIENCES TEACHER-BC, [facility] documented in this encounter Plan of Treatment Upcoming Encounters Date Type Specialty Care Team Description 05/28/2022 Appointment Cardiology Zulma Dolan MD [facility] [address] [place], [place] [address] (Wo rk) 05/28/2022 Laboratory Appointment Lab 05/28/2022 Office Visit Cardiology Zulma Dolan MD [facility] [place] [address] Liz Poole PA [facility] [place] [address] 06/10/2022 Office Visit Dermatology Laura Scherer MD [facility] DR [address] [place], [place] [address] (Wo rk) documented as of this encounter Visit Diagnoses Not on filedocumented in this encounter Care Teams Service Advocate Contact Relationship Specialty Start Date End Date Lovely Vicente MD PCP - General 04/16/[address] [place] [address] documented as of this encounter
--- OUTSIDE RECORDS SUMMARY | 2022-04-13 08:12 | XMS_ITS | Encounter Summary ---
:1945 Author Organization [facility] [place] [address] Care Team Providers Name Role Phone Lovely Vicente MD Primary Care Provider Reason for Visit Auth/Cert Specialty Diagnoses / Procedures Referred By Contact Refer red To Contact Diagnoses Critical lower limb ischemia CELLULITIS RT FOOT Procedures EMERGENCY Referral ID Status Reason Start Date Expiration Date Visits Requ ested Visits Authorized [id number] 1 1 Encounter Details Date Type Department Care Team Description 08/04/2017 Laboratory Appointment Lab [facility]L [facility] [place] [address] Social History Tobacco Use Types Packs/Day [...] [facility] er Dr [address] [address] (Wo rk) 05/28/2022 Laboratory Appointment Lab 05/28/2022 Office Visit Cardiology Zulma Dolan MD [facility] [place] [address] Liz Poole PA [facility] [place] [address] 06/10/2022 Office Visit Dermatology Laura Scherer MD [facility] [address] [place], [place] [address] (Wo rk) documented as of this encounter Visit Diagnoses Not on filedocumented in this encounter Care Teams Sap Consultant Relationship Specialty Start Date End Date Lovely Vicente MD PCP - General 04/16/15 [facility] [address] [place], [place] [id number] documented as of this encounter
--- OUTSIDE RECORDS SUMMARY | 2022-04-13 08:13 | XMS_ITS | Encounter Summary ---
:1945 Author Organization [facility] [place] [address] Care Team Providers Name Role Phone Lovely Vicente MD Primary Care Provider Reason for Visit Reason Onset Date Comments Other 07/22/2017 lovenox bridge Encounter Details Date Type Department Care Team Description 07/22/2017 Telephone Cardiology [place] [facility] Cadena RN Other (lovenox bridge) [place] [address] Social History Tobacco Use Types Packs/Day [...] 4:49 PM EST VAMSI Del Castillo, at [facility], called earlier today with a question re: lovenox bridge for this patient who was recently [place] [facility] [place]t a blood clot. Discharge note faxed to [facility] (fax# [phone], Ph#: [phone]) which contains instructions r/t lovenox bridge as follows: Anticoagulation: on lovenox bridge to therapeutic coumadin for AFib. Goal INR 2-3. At discharge INR=1.5. The lovenox injections can stop when INR >2, coumadin will continue indefinitely. documented in this encounter Plan of Treatment Upcoming Encounters Date Type Specialty Care Team Description 05/28/2022 Appointment Cardiology Zulma Dolan MD [facility] [place], [place] [address] (Wo rk) 05/28/2022 Laboratory Appointment Lab 05/28/2022 Office Visit Cardiology Zulma Dolan [place] [address] Liz Poole PA [facility] [place] [address] 06/10/2022 Office Visit Dermatology Laura Scherer MD [facility] [address] [place], [place] [address] (Wo rk) documented as of this encounter Visit Diagnoses Not on filedocumented in this encounter Care Teams Nut Grader Relationship Specialty Start Date End Date Lovely Vicente MD PCP - General 04/16/15 [facility] [address] [place] [address] documented as of this encounter
--- OUTSIDE RECORDS SUMMARY | 2022-04-13 08:13 | XMS_ITS | Encounter Summary ---
:1945 [place] [address] Care Team Providers Name Role Phone Lovely Vicente MD Primary Care Provider Reason for Visit Reason Comments Hospital Transfer cold foot post CABG Auth/Cert Specialty Diagnoses / Procedures Referred By Contact Refer red To Contact Diagnoses Critical lower limb ischemia Procedures NAYE IPI Referral ID Status Reason Start Date Expiration Date Visits Requ ested Visits Authorized [id number] 1 1 Encounter Details Date Type Department Care Team Description 07/20/2017 Hospital Encounter 4 Herminia Ibarra MD [facility] [place] [address] Critical lower limb [facility] Arik Clement MD [facility] [place] [address] [place] [address] Social History Tobacco Use Types Packs/Day Years [...] home. Important Studies and Lab Data: Labs: [facility] Lab Results Component Value Date INR 1.5 [...] For any problems or questions please call [phone] ZELDA Smith, crystalizer operator Nurse Clinician For issues on weeknights after 5pm and weekends please call [phone] and ask for the Vascular Fellow cable television line technician. General Instructions None Future Appointments and Orders Future Appointments Provider Department Dept Phone 08/04/2017 1:00 PM Daniele Mooney [place] [facility] [place] [phone] 08/04/2017 2:15 PM Arik Clement MD [facility] [place] [phone] 09/07/2017 3:00 PM MAYRA CHACON Lab [facility] [phone] 09/07/2017 4:00 PM Luz Prescott MD [facility]ocrinology [facility] [place] [phone] Future Orders Complete By Expires Arterial Duplex Leg, Unil [VAS32 Custom] 07/27/2017 (Approximate) 01/26/2018 Process Instructions: There is no in-house vascular analytical lab technician available on weeknights (5pm-8am), weekends, or holidays. IF THIS IS A REQUEST FOR AN EMERGENT STUDY DURING THOSE HOURS, please have the senior provider responsible for the patient page the Vascular Surgery Fellow/Senior Resident cable television line technician to discuss options. Scheduling Instructions: Questions: Indication for study/signs & symptoms: Right femoral PSA s/p cardiac cath Question to be answered: bloodflow to PSA Laterality: Right Is there a RIGHT LOWER EXTREMITY graft?: No Lower limb right segments: Common Femoral Is there a stent?: No At which location will this be performed?: [place] Referral to Home Health - at DISCHARGE [[id number] CPT(R)] As directed Process Instructions: Scheduling Instructions: Comments: DOCUMENTATION FOR VNA SERVICES (INCLUDING THOSE PATIENTS WITH MEDICARE COVERAGE REQUIRING HOME VNA SERVICES AND/OR HOSPICE SERVICES) PATIENT'S LOCATION: Gregory Fatima [address] [place] [address] [place] [id number] (home) Cell: Telephone Information: Detective Chief's Name: self In discussion with the attending physician, it is certified that this patient is under their care and that they, or a Nurse Practitioner,Clinical Nurse specialist or Physician Xerox Machine Operator who is working directly with [...] CARE AGENCY: [facility] ([facility] [place] [facility]-is in [place]) PHONE: [phone] FAX: [phone] Start of care: 24- 48 hours FOR [...] patient'sPCP: Lovely Vicente MD [address] [facility] [place] / [place] [address] All VNA agencies which cover the area [...] For any problems or questions please call [phone] ZELDA Smith, crystalizer operator Nurse Clinician For issues on weeknights after 5pm and weekends please call [phone] and ask for the Vascular Fellow cable television line technician. 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 A letter describing our affiliations was reviewed with them and theywere educated about their right to choose where referrals are placed. Patient requests referral to [facility]. PHONE: [phone] FAX: [phone]. Expected date of discharge: 07/20/2017 . Referral routed to the Mold Unloader for matching with agency/vendor and to provide any required information. 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 A letter describing our affiliations was reviewed with them and theywere educated about their right to choose where referrals are placed. Patient requests referral to [facility] ([facility] [place] [facility]- is in [facility] PHONE: [phone] FAX: [phone]. Expected date of discharge: 07/20/2017 . Referral routed to the Mold Unloader for matching with agency/vendor and to provide any required information. Katina Pulliam RNemergency response officer Janneth Lee MD - 07/20/2017 7:29 [...] [facility] Functional Status/Social Hx: Social [...] -ISS -pain control Discussed with Vascular Fellow cable television line technician. Chris Valadez MD PGY2 Pager [phone] documented in this encounter ED Notes Annita Reaves MD - 07/20/2017 3:15 PM EST Emergency Department Gregory Fatima is a 72 y.o. 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 History [...] 04/05/2013 Hospitalizations Within the Past 30 Days: [facility] 07/05/17 Anticipated Length Of [...] Health/Prescription Coverage: Primary Insurance: MEDICARE Secondary Insurance: [employer] Prescription Coverage: See above Preferred Pharmacy: [facility] Other: N/A Primary Care Provider: Lovely Vicente MD [phone] Patient/Caregiver Goals of Treatment: Patient plans to return home when medically ready Potential Needs for Transition of Care: Rehab/SNF: N/A Home Health: [facility] ([facility] [place] [facility]-is in [place]) PHONE: [phone] FAX: [phone] DME: N/A Dialysis: N/A Community Resources: N/A Transportation: Patient family will transport Other: N/A Anticipated Barriers to Discharge/Special Considerations: None Plan: Patient plans to return home with home health services when medically ready A member of the Care Management team will continue to monitor progress, follow for continuity of care and assist with transition of care planning. Naty Pulliam, RN Pager: [phone] ED Triage - Rayna Weir RN - 07/20/2017 12:28 AM EST Pt transferred from [facility] for blue right foot and painful toes. [...] Zulma Dolan MD [facility] [address] [place], [place] [address] (Wo rk) 05/28/2022 Laboratory Appointment Lab 05/28/2022 Office Visit Cardiology Zulma Dolan MD [facility] [place] [address] Liz Poole PA [facility] [place] [address] 06/10/2022 Office Visit Dermatology Laura Scherer MD [facility] DR TEJA [facility] [place], [place] [address] (Wo rk) documented as of this encounter Procedures Procedure Name Priority Date/Time Associated Comments Diagnosis COMPUTING SYSTEMS MECHANIC SCAN 09/02/2017 12:00 Res ults for this [...] TO LAB EST procedure are i n ([facility]) the results section. APTT STAT 07/20/2017 2:25 AM Results f or this EST procedure are i n the results section. PROTHROMBIN TIME STAT 07/20/2017 2:25 AM Resul ts for this EST procedure are i n the results section. BASIC METABOLIC PANEL STAT 07/20/2017 2:25 AM Results for this (NON-FASTING) EST procedure are in the results section. documented in this encounter Results SCAN DOC: COMPUTING SYSTEMS MECHANIC (09/02/2017 12:00 AM EST) Narrative 09/02/2017 12:00 AM EST This result has an attachment that is no t available. Ordered by an unspecified provider. Scanning Provider MEDIA MGR SCAN EXT ORDR/RSLT POCT Glucose (07/20/2017 12:04 PM EST) P athologist Signature POC Glucose 189 65 - 199 [facility] mg/dL [facility] LABORATORY [...] Organization Address City/State/[place] [address] (ABNORMAL) Differential, Automated (07/20/2017 10:34 AM EST) Patholo gist Method Time Signature Neutrophils % 84.3 % [facility] LABORATORY Neutr Abs (ANC) 14.27 (H) 1.70 - [facility] 6.10 [facility] x10(3)/[facility] LABORATORY Lymphocytes % 5.6 % [facility] Lymphocytes Abs 1.0 0.9 - 3.2 [facility] x10(3)/[facility] LABORATORY Monocytes % 6.1 % [facility] Monocyte Abs 1.0 (H) 0.3 - 0.9 [facility] x10(3)/[facility] LABORATORY Eosinophils % 2.4 % [facility] Eosinophils Abs 0.4 0.0 - 0.4 [facility] x10(3)/[facility] LABORATORY Basophils % 0.5 % [facility] Basophils Abs 0.1 0.0 - 0.1 [facility] x10(3)/[facility] LABORATORY Immature Gran % 1.10 % [facility] [...] Gran Abs 0.19 (H) 0.00 - 0.04 x10(3)/[facility] LABORATORY Specimen Anatomical Collection Method Collection Time Receive d Time (Source) Location / / Volume Laterality Blood specimen 07/20/2017 10:34 7 (specimen) AM EST 10:39 AM EST Resulting Agency Comment Spec In Lab Arik Clement MD HEMATOLOGY ORDERABLES Performing Organization Address City/State/[place] [address] (ABNORMAL) Hemogram (07/20/2017 10:34 AM EST) Analysis Performed At Patho logist Time Signature WBC 17.0 (H) 4.0 - 9.5 [facility] x[facility](3[facility] LABORATORY RBC 3.70 (L) 4.58 - [facility] 5.54 [facility] x10(6)/[facility] LABORATORY Hemoglobin 10.8 (L) 13.7 - [facility] 16.5 gm/dL [facility] LABORATORY Hematocrit 33.4 (L) 40.5 - [facility] 48.5 % [facility] LABORATORY MCV 90.3 82.9 - [facility] 93.1 [facility] LABORATORY MCH 29.2 27.5 - [facility] RYAN 32.1 pg [facility] LABORATORY MCHC 32.3 32.0 - [facility] RYAN 35.7 gm/dL [facility] LABORATORY Platelets 211 145 - 357 [facility] x10(3)/[facility] LABORATORY RDWSD 49.1 (H) 36.0 - [facility] RYAN 45.0 [facility] LABORATORY RDWCV 14.7 (H) 11.4 - [facility] RYAN 13.8 % [facility] LABORATORY MPV 9.2 7.6 - 12.9 [facility] LAB[facility]ORY nRBC % Auto 0.0 % [facility] LABORATORY nRBC Abs Auto 0.000 0.000 - [place] RYAN 0.000 [facility] x10(3)/[facility] LABORATORY Specimen Anatomical Collection Method Collection Time Receive d Time (Source) Location / / Volume Laterality Blood specimen 07/20/2017 10:34 7 (specimen) AM EST 10:39 AM EST Resulting Agency Comment Spec In Lab Arik Clement MD HEMATOLOGY ORDERABLES Performing Organization Address City/State/[place] [address] (ABNORMAL) APTT (07/20/2017 10:34 AM EST) athologist Signature PTT 79 (H) 25 - 35 sec [facility] LABORATORY Comment: The recommended therapeutic range for fu ll dose, unfractionated heparin at [facility] is 80 ? [...] [facility] [place] [address] POCT Glucose (07/20/2017 7:41 AM EST) athologist Signature POC Glucose 174 65 - 199 [facility] mg/dL [facility] LABORATORY [...] [facility] [place]/ZIP Code Phon e Number [address] JULIAN, legs, multiple levels (07/20/2017 7:33 AM EST) Component Value Ref Test Analysis Performed At Patholo gist Range Method Time Signature VB Text Department: Vascular Surgery Lab VASCUBASE Report Patient: [id number] (GREGORY FATIMA) CPT: 56050 ICD10: I75.021;I99.8 Referring Physician: ARIK CLEMENT ?? [...] Component Value Ref Test Analysis Performed At [facility] Range Method Time Signature VB Text Department: Vascular Surgery Lab VASCUBASE Report Patient: [id number] (GREGORY FATIMA) CPT: 16908 ICD10: I97.610;I99.8 Referring Physician: ARIK CLEMENT ?? [...] Signature POC Glucose 199 65 - 199 [facility] mg/dL [facility] LABORATORY [...] Organization Address City/[facility]/ZIP [facility] [place] [address] Lactate, whole blood, send to lab (Leb/CGP) (07/20/2017 2:25 AM EST) athologist Signature Lactate WB 2.0 0.5 - 2.2 [facility] mmol/L [facility] LABORATORY Specimen Anatomical Collection Method Collection Time Receive d Time (Source) Location / / Volume Laterality Blood specimen Venous Draw / 07/20/2017 2:25 AM 2016 2:37 (specimen) Unknown EST AM EST Resulting Agency Comment Spec In Lab Zulma Samuel MD CHEMISTRY ORDERABLES Performing Organization Address City/[facility] Code Phon e Number [address] (ABNORMAL) APTT (07/20/2017 2:25 AM EST) athologist Signature PTT 36 (H) 25 - 35 sec [facility] Comment: The recommended therapeutic range for fu ll dose, unfractionated heparin at [facility] is 80 ? [...] [facility] [place] [address] (ABNORMAL) Prothrombin Time (07/20/2017 2:25 AM EST) athologist Signature PT 17.7 (H) 11.8 - 14.0 [facility] LABORATORY [...] Organization Address City/State/[place] [address] (ABNORMAL) Basic Metabolic Panel (non-fasting) (07/20/2017 2:25 AM EST) P athologist Signature Glucose Lvl 187 65 - 199 [facility] mg/dL [facility] LABORATORY Comment: Diabetes: >=200 mg/dL plus symp toms BUN 35 (H) 10 - 20 mg/dL [facility] LABORATORY Creatinine 1.51 (H) 0.80 - 1.50 mg/dL [facility] LABORATORY Sodium 134 (L) 135 - 145 mmol/L [facility] Potassium Not Perf 3.5 - 5.0 mmol/L [facility] Comment: Specimen hemolyzed. Called by: [facility], Read back by: Chitra Orantes, [...] or in patients with acute kidney failure. [email or web address] [email or web address] Specimen Anatomical Collection Method Collection Time Receive d Time (Source) Location / / Volume Laterality Blood specimen 07/20/2017 2:25 AM 017 2:33 (specimen) EST AM EST Resulting Agency Comment Spec In Lab Annita Reaves MD CHEMISTRY ORDERABLES Performing Organization Address City/State/ZIP Code Phon e Number [place] [id number] documented in this encounter [...]
Routine documented in this encounter Care Teams Set Up Machinist Relationship Specialty Start Date End Date Lovely Vicente MD PCP - General 04/16/[address] [place] [address] documented as of this encounter
--- OUTSIDE RECORDS SUMMARY | 2022-04-13 08:13 | XMS_ITS | Encounter Summary ---
:1945 Author Organization [facility] [place] [address] Care Team Providers Name Role Phone Lovely Vicente MD Primary Care Provider Reason for Visit Reason Comments Foot Pain Auth/Cert Specialty Diagnoses / Procedures Referred By Contact Refer red To Contact Diagnoses Ischemic foot Procedures NAYE OBSVO Referral ID Status Reason Start Date Expiration Date Visits Requ ested Visits Authorized [id number] 1 1 Encounter Details Date Type Department Care Team Description 07/27/2017 Emergency 1 [facility] Lokesh Swenson MD [facility] [place] [address] Femoral artery pseudo-aneurysm, right; [facility] Tam Bauman MD [facility] [place] [address] [place] [address] Social History Tobacco Use Types Packs/Day [...] Gregory Fatima Patient Age: 72 y.o. Language: Rwandan Race: White Ethnicity: Not nor Admit date: [...] please contact your inpatient physician through the [facility] Fire Production Operator . Issues after hours and on [...] RLE critical limb ischemia, who presented to [facility] with worsening RLE pain. Pt post-op course after CABG was significant for paroxysmal Afib, and he was started on Coumadin given elevated [id number] score. 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 [...] in the last 7068 hours. Invalid input(s): [id number] Recent Labs 07/08/17 0400 07/07/17 0515 07/06/17 [...] (it was low at 1.6 here at [facility]) 7. Use the tramadol if dilaudid or tylenol is not working 8. Stop taking the potassium supplement - your blood potassium level was elevated. Ask your doctors at future visits if this should be restarted. 9. Antibiotic for 5 days recommended by cardiothoracic surgery for chest wound drainage Follow-Up Appointments Vascular surgery as previously schedule Your Inpatient Doctor(s) at [facility]: CARLOS ALBERTO ROSALES MD General Instructions None Future Appointments and Orders Future Appointments Provider Department Dept Phone 07/30/2017 8:30 AM OSWALDO, THREE L Lab 3L [facility] [phone] 07/30/2017 9:40 AM Danette Maxwell APRN Cardiology at [place] [phone] 08/04/2017 1:00 PM Daniele Mooney [place] Vascular Lab at [place] [phone] 08/04/2017 2:15 PM Arik Clement MD Vascular Surgery at [place] [phone] 08/11/2017 10:00 AM [facility] ROOM 2 XRay at [place] [phone] Please go to Disease Case Manager Area 3T ([place] Location). 08/11/2017 11:00 AM Yuan Retana MD Cardiac Surgery at [place] [phone] 09/07/2017 3:00 PM LAB, THREE L Lab 3L [facility] [phone] 09/07/2017 4:00 PM Luz Prescott MD Endocrinology at [place] [phone] Discharge References/Attachments None documented in this encounter [...] (it was low at 1.6 here at [facility]) 3. Use the tramadol if dilaudid or tylenol is not working 4. Stop taking the potassium supplement - your blood potassium level was elevated. Ask your doctors at future visits if this should be restarted. 5. Antibiotic for 5 days recommended by cardiothoracic surgery for chest wound drainage Follow-Up Appointments Vascular surgery as previously schedule Your Inpatient Doctor(s) at [facility]: CARLOS ALBERTO ROSALES MD [...] Gas) No results found for: PHART, PO2ART, NOJ4XVW Assessment/Plan: 72 y.o. male s/p CABG in [...] intervention: Education Nutrition Recommendations: Recommend continuation of [facility], CHO2 diet order Patient [...] Orders Diet Daily Healthy Menu Choices/Cardiac diet ([facility]-Diet) 60/ CHO counting level 2 Frequency: Effective Now Number of Occurrences: Until Specified Admit Weight: 83.92 kg Estimated body mass index is 28.13 kg/(m^2) as calculated from the following: Height as of this encounter: 172.7 cm (5' 8). Weight as of this encounter: 83.9 kg (185 lb). [place] body weight: 68.4 kg (150 lb 12.7 [...] RLE critical limb ischemia, who presented to [facility] with worsening RLE pain. [...] supplements, patient declined need at this time. WINSTNO LOZANO [place] Tee MD - 07/27/2017 2:04 [...] spent >30 minutes (Day of Discharge Code 99224) involved in the final examination of the [...] Melanoma ID: 72 y.o. Male presents to [facility] with persistent pain b/l lower extremities History of Present Illness: HPI 72 y.o. male with PMH ASCVD s/p CABG (07/07/17), MARIA VICTORIA on CPAP QHS, HTN, HLD, DM2, with recent hospitalization for RLE critical limb ischemia, who presented to [facility] with worsening RLE pain. Pt post-op course after CABG was significant for paroxysmal Afib, and he was started on Coumadin given elevated LSRB3NMHBT score. 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 [...] [facility] ENDOSCOPY ??? PRO ENDOSCOPY W/VIDEO-ASST VEIN HARVEST, CABG Right 07/07/2017 ENDOSCOPIC HARVEST VEIN(S) FOR CABG (WRVU 0.31) performed by Yuan Retana MD at [facility] MAIN OR ??? PRO THYROIDECTOMY 03/28/2013 THYROIDECTOMY, TOTAL OR COMPLETE performed by Manny Mcknight MD at [facility] MAIN OR Prior To Admission [...] Procedure Component Value Units Date/Time Blood culture [[id number]] Collected: 07/09/1739 Lab Status: Final result Specimen: Blood from Arm, Right Updated: 07/14/17701 Blood Culture No growth at 5 days. Blood culture [[id number]] Collected: 07/09/170 Lab Status: Final result Specimen: [...] limb ischemia following CABG, who presented to [facility] ED from home with [...] continued Diet Daily Healthy Menu Choices/Cardiac diet ([facility]-Diet) 60/60/75 CHO counting level 2Cardiac, low salt, CHO 2 Discharge planning Pending improvement in pain control PT/OT/Speech PT ordered Lines/Access PIV Ocasio catheter No DVT/GI Prophylaxis Lovenox bridge to Coumadin, SCD. Code status Full Code Family PCP Lovely Vicente MD [phone] Attestation Please see my note for details [...] worse again. VSS. Call cabello in reach. Angeal Swenson MD - 07/27/2017 12:57 AM EST [...] encounter Miscellaneous Notes Plan of Care - Ell[place]-Joyce Damian, PT - 07/27/2017 3:26 PM EST [...] Anticipated Discharge Disposition: home with assist Pager: [phone] JOYCE KING, PT Inpatient Physical Therapy 2017 [...] patient's evaluation including the following functional test(s) [facility]. Current ability measures, co-morbidities and clinical judgement [...] a lovenox bridge. Mr. Fatima returns to [facility] ED tonight because of [...] [facility] ENDOSCOPY ??? PRO ENDOSCOPY W/VIDEO-ASST VEIN HARVEST, CABG Right 07/07/2017 ENDOSCOPIC HARVEST VEIN(S) FOR CABG (WRVU 0.31) performed by Yuan Retana MD at [facility] MAIN OR ??? PRO THYROIDECTOMY 03/28/2013 THYROIDECTOMY, TOTAL OR COMPLETE performed by Manny Mcknight MD at [facility] MAIN OR MEDICATIONS: No current [...] up in clinic 1-2 weeks after discharge. [facility] Vascular Surgery Plan of Care [...] Zulma Dolan MD [facility] [place], [place] [address] (Wo rk) 05/28/2022 Laboratory Appointment Lab 05/28/2022 Office Visit Cardiology Zulma Dolan MD [facility] [place] [address] Liz Poole PA [facility] [place] [address] 06/10/2022 Office Visit Dermatology Laura Scherer MD [facility] DR TEJA GR-DERMAT [place], [place] [address] (Wo rk) documented [...] section. TYPE AND SCREEN STAT 07/27/2017 12:53 ([facility]/CGP/SHANDA) AM EST BASIC METABOLIC PANEL STAT 07/27/2017 12:53 Re sults for this (NON-FASTING) AM EST procedure are in the results section. documented in this encounter Results POCT Glucose (07/27/2017 11:53 AM EST) P athologist Signature POC Glucose 175 65 - 199 [facility] mg/dL [facility] Comment: [...] Organization Address City/State/[place] [address] Arterial Duplex Leg, Unil (07/27/2017 7:40 AM EST) Component Value Ref Test Analysis Performed At Patholo gist Range Method Time Signature VB Text Department: Vascular Surgery Lab VASCUBASE Report Patient: [id number] (GREGORY FATIMA) CPT: 38404 ICD10: I97.610;I72.4;Z09 Referring Physician: TAM BAUMAN ?? [...] Bauman MD VASCULAR ORDERABLES Performing Organization Address City/[facility]/ZIP Code Phon e Number VASCUBASE POCT Glucose (07/27/2017 6:51 AM EST) P athologist Signature POC Glucose 96 65 - 199 [facility] mg/dL [facility] Comment: Supplemental ranges: <140 mg/dL before meals <180 mg/dL all other times of the day Specimen Anatomical Collection Method Collection Time Receive d Time (Source) Location / / Volume Laterality Blood specimen 07/27/2017 6:51 AM 018 6:51 (specimen) EST AM EST Tam Bauman MD POINT OF CARE TEST ORDERABLE S Performing Organization Address City/[facility]/ZIP [facility] Phon e Number [address] ABORH Recheck Status [...] MD BLOOD BANK ORDERABLES Performing Organization Address City/[facility]/[place] [address] Gold Tube HOLD (07/27/2017 12:53 AM EST) P athologist Signature Gold Hold Sample in [facility]. [facility] Specimen Anatomical Collection Method Collection Time Receive d Time (Source) Location / / Volume Laterality Blood specimen Venous Draw / 07/27/2017 12:53 07/27/19 18 1:01 (specimen) Unknown AM EST AM EST Angela Swenson MD CHEMISTRY ORDERABLES Performing Organization Address City/State/[place] [address] (ABNORMAL) Differential, Automated (07/27/2017 12:53 AM EST) Patholo gist Method Time Signature Neutrophils % 75.0 % [facility] Neutr Abs (ANC) 11.30 (H) 1.70 - [facility] 6.10 [facility] x10(3)/[facility] LABORATORY Lymphocytes % 9.9 % [facility] Lymphocytes Abs 1.5 0.9 - 3.2 [facility] x10(3)/[facility] LABORATORY Monocytes % 8.6 % [facility] Monocyte Abs 1.3 (H) 0.3 - 0.9 [facility] x10(3)/[facility] LABORATORY Eosinophils % 4.8 % [facility] Eosinophils Abs 0.7 (H) 0.0 - 0.4 [facility] x10(3)/[facility] LABORATORY Basophils % 0.8 % [facility] Basophils Abs 0.1 0.0 - 0.1 [facility] x10(3)/[facility] LABORATORY Immature Gran % 0.90 % [place] [...] Address City/State/[place] [address] (ABNORMAL) Hemogram (07/27/2017 12:53 AM EST) Analysis Performed At Patho logist Time Signature WBC 15.0 (H) 4.0 - 9.5 [facility] x[facility](3[facility] LABORATORY RBC 3.59 (L) 4.58 - [facility] 5.54 [facility] x10(6)/[facility] LABORATORY Hemoglobin 10.3 (L) 13.7 - [facility] 16.5 gm/dL [facility] Hematocrit 32.6 (L) 40.5 - [facility] 48.5 % [facility] MCV 90.8 82.9 - [facility] 93.1 [facility] LABORATORY MCH 28.7 27.5 - [facility] 32.1 pg [facility] MCHC 31.6 (L) 32.0 - [facility] 35.7 gm/dL [facility] Platelets 322 145 - 357 [facility] x10(3)/[facility] RDWSD 48.7 (H) 36.0 - [facility] 45.0 [facility] LABORATORY RDWCV 14.7 (H) 11.4 - [facility] 13.8 % [facility] MPV 8.9 7.6 - 12.9 [facility] LABORATORY nRBC % Auto 0.0 % [facility] nRBC Abs Auto 0.000 0.000 - [facility] 0.000 [facility] x10(3)/[facility] LABORATORY Specimen Anatomical Collection Method Collection Time Receive d Time (Source) Location / / Volume Laterality Blood specimen 07/27/2017 12:53 8 1:00 (specimen) AM EST AM EST Resulting Agency Comment Spec In Lab Angela Swenson MD HEMATOLOGY ORDERABLES Performing Organization Address City/State/[place] [address] Antibody screen (07/27/2017 12:53 AM EST) Patholo gist Method Time Signature Ab Screen Negative [facility] LABORATORY Expires at 07/30/2017 KATALINA ZHAORYAN [id number] on: [facility] Specimen Anatomical Collection Method Collection Time Receive d Time (Source) Location / / Volume Laterality Blood specimen 07/27/2017 12:53 8 (specimen) AM EST 12:58 AM EST Resulting Agency Comment Spec In Lab Angela Swenson MD BLOOD BANK ORDERABLES Performing Organization Address City/[facility]/[place] [address] ABO/Rh Typing (07/27/2017 12:53 AM EST) P athologist Signature ABORh Type O Pos [facility] Specimen Anatomical Collection Method Collection Time Receive d Time (Source) Location / / Volume Laterality Blood specimen 07/27/2017 12:53 8 (specimen) AM EST 12:58 AM EST Resulting Agency Comment Spec In Lab Angela Swenson MD BLOOD BANK ORDERABLES Performing Organization Address City/[facility] [place] [address] (ABNORMAL) Prothrombin Time (07/27/2017 [...] Address City/State/[place] [address] (ABNORMAL) Basic Metabolic Panel (non-fasting) (07/27/2017 12:53 AM EST) athologist Signature Glucose Lvl 95 65 - 199 [facility] mg/dL [facility] Comment: Diabetes: >=200 mg/dL plus symp toms BUN 37 (H) 10 - 20 mg/dL [facility] Creatinine 1.49 0.80 - 1.50 mg/dL [facility] LAB[facility] Sodium 137 135 - 145 mmol/L [facility] Potassium 5.1 (H) 3.5 - 5.0 mmol/L [facility] [...] or in patients with acute kidney failure. 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
Routine documented in this encounter Care Teams Discharge Specialist Relationship Specialty Start Date End Date Lovely Vicente MD PCP - General 04/16/15 [facility] [address] [facility] [address] [place] [address] documented as of this encounter
--- OUTSIDE RECORDS SUMMARY | 2022-04-13 08:13 | XMS_ITS | Encounter Summary ---
:1945 [place] [address] Care Team Providers Name Role Phone Lovely Vicente MD Primary Care Provider Encounter Details Date Type Department Care Team Description 08/03/2017 Hospital Encounter Radiology Library at [place], Tommy Mijares [facility] [place] [address] VASCULAR SURGERY [phone] [place], [place] [address] (Wo rk) Social History Tobacco [...] Cardiology Zulma Dolan MD [facility] [place], [place] [address] (Wo rk) 05/28/2022 Laboratory Appointment Lab 05/28/2022 Office Visit Cardiology Zulma Dolan MD [facility] [place] [address] Liz Poole PA [facility] [place] [address] 06/10/2022 Office Visit Dermatology Laura Scherer MD [facility] DR [address] [place], [place] [address] (Wo rk) documented as of [...] Time Received Time / Laterality Volume Narrative [facility] - 08/03/2017 6:03 PM EST This exam is for storage only and is aut o-finalizing. Arik Clement MD G FILM LIBRARY ORDERABLES Performing Organization Address City/State/ZIP Code Phon e Number [place], [place] documented in this encounter Visit Diagnoses Diagnosis Pain Generalized pain documented in this encounter Care Teams Database Support Relationship Specialty Start Date End Date Lovely Vicente MD PCP - General 04/16/[address] [place] [address] documented as of this encounter
--- OUTSIDE RECORDS SUMMARY | 2022-04-13 08:13 | XMS_ITS | Encounter Summary ---
:1945 Author Organization [facility] [place] [address] Care Team Providers Name Role Phone Lovely Vicente MD Primary Care Provider Encounter Details Date Type Department Care Team Description 07/29/2017 Transcribe Orders Laboratory Lovely Vicente MD [address] [address] [place] [address] [phone] (Wo rk) Social History Tobacco Use Types [...] [facility] [address] [place] [address] (Wo rk) 05/28/2022 Laboratory Appointment Lab 05/28/2022 Office Visit Cardiology Zulma Dolan MD [facility] [place] [address] Liz Poole PA [facility] [place] [address] 06/10/2022 Office Visit Dermatology Laura Scherer MD [facility] ER DR TEJA GR-DERMAT [place], [place] [address] (Wo rk) documented as of this encounter Visit Diagnoses Not on filedocumented in this encounter Care Teams Propagation Worker Relationship Specialty Start Date End Date Lovely Vicente MD PCP - General 04/16/[address] [place] [address] documented as of this encounter
--- OUTSIDE RECORDS SUMMARY | 2022-04-13 08:13 | XMS_ITS | Encounter Summary ---
:1945 [place] [address] Care Team Providers Name Role Phone Lovely Vicente MD Primary Care Provider Encounter Details Date Type Department Care Team Description 07/29/2017 Hospital Encounter Vascular Lab at Critic monica Huber lower limb [facility] [place] [phone] Social History Tobacco Use Types Packs/Day Years [...] Cardiology Zulma Dolan MD [facility] [place], [place] [address] (Wo rk) 05/28/2022 Laboratory Appointment Lab 05/28/2022 Office Visit Cardiology Zulma Dolan MD [facility] [place] [address] Liz Poole PA [facility] [place] [address] 06/10/2022 Office Visit Dermatology Laura Scherer MD [facility] [address]DERMAT [place], [place] [address] (Wo rk) documented as of this encounter Visit Diagnoses Diagnosis Critical lower limb ischemia Unspecified circulatory system disorder documented in this encounter Care Teams Chimney Mechanic Relationship Specialty Start Date End Date Lovely Vicente MD PCP - General 04/16/[address] [place] [address] documented as of this encounter
--- OUTSIDE RECORDS SUMMARY | 2022-04-13 08:13 | XMS_ITS | Encounter Summary ---
:1945 Author Organization [facility] [place] [address] Care Team Providers Name Role Phone Lovely Vicente MD Primary Care Provider Encounter Details Date Type Department Care Team Description 07/24/2017 Telephone Vascular Surgery [facility] [place] [address] [facility] [phone] VASCULAR SURGERY [place], [place] [address] (Wo rk) Social History [...] Dolan MD [facility] [address] [place] [address] (Wo rk) 05/28/2022 Laboratory Appointment Lab 05/28/2022 Office Visit Cardiology Zulma Dolan MD [facility] [place] [address] Liz Poole PA [facility] [place] [address] 06/10/2022 Office Visit Dermatology Laura Scherer MD [facility] [address] TE[address] GR[address]DERMAT [place], [place] [address] (Wo rk) documented as of this encounter Visit Diagnoses Not on filedocumented in this encounter Care Teams Pe Electrical Engineer Relationship Specialty Start Date End Date Lovely Vicente MD PCP - General 04/16/[address] [place] [address] documented as of this encounter
--- OUTSIDE RECORDS SUMMARY | 2022-04-13 08:13 | XMS_ITS | Encounter Summary ---
:1945 Author Organization [facility] [place] [address] Care Team Providers Name Role Phone Lovely Vicente MD Primary Care Provider Reason for Visit Reason Comments Pain Management Ankle Pain Toe Pain Encounter Details Date Type Department Care Team Description 07/30/2017 Office Visit Pain Management at [facility], Per ipheral neuropathy Rolette AIRFIELD OPERATIONS SPECIALIST due to ischemia [facility] [address] [place], [place], [place] [phone] Social History Tobacco Use Types Packs/Day Years [...] Soares APRN - 07/30/2017 1:45 PM EST [facility] [place] [address] Phone: PAIN MANAGEMENT NEW PATIENT / CONSULTATION NOTE DATE OF VISIT 07/30/2017 Patient Don Fatima 1945 REFERRING PROVIDER Lovely Vicente MD [address] [place] [id number] PRIMARY CARE PROVIDER Lovely Vicente MD CHIEF [...] relief PAST THERAPIES: Nothing MEDICATIONS The [place] and [place] Prescription Monitoring Program was checked and no [...] SETUP performed by Manny Mcknight MD at [facility] OR ??? PRO CABG, ARTERIAL, SINGLE N/A 07/07/2017 @CABG, USING ARTERIAL GRAFT;SINGLE ARTERIAL GRAFT (WRVU 33.75) performed by Yuan Retana MD at [facility] OR ??? PRO CABG, ARTERY-VEIN, [...] 0.31) performed by Yuan Retana MD at [facility] OR ??? PRO THYROIDECTOMY 03/28/2013 [...] referral, Lovely Vicente MD [address] [place] [address]. [facility], MSN, HVAC INSTRUCTOR-BC, AIRFIELD OPERATIONS SPECIALIST Nurse Practitioner Pain Management Center documented in this encounter Plan of Treatment Upcoming Encounters Date Type Specialty Care Team Description 05/28/2022 Appointment Cardiology Zulma Dolan MD 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
--- OUTSIDE RECORDS SUMMARY | 2022-04-13 08:13 | XMS_ITS | Encounter Summary ---
:1945 Author Organization [facility] Address [facility] [place] [address] Care Team Providers Name Role Phone Lovely Vicente MD Primary Care Provider Encounter Details Date Type Department Care Team Description 07/29/2017 Transcribe Orders Laboratory Lovely Vicente, Coronary artery rupture; [facility] Medical Ischemic cardiomyopathy; [facility] [address] Atherosclerosis of [place] co ronary artery, angina presence unspecified, unspecified whether [place] or transplanted heart; [place], [place] [address] Essential hypertension, malignant; [id number] [place], [place] 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 [place] [address] [facility] [place] [address] 06/10/2022 Office Visit Dermatology Laura Scherer MD [facility] ER [address] [place], [place] [address] (Wo rk) Scheduled Orders Name Type Priority Associated Diagnoses Order S chedule Lab Use Only, Fax Lab Routine Coronary arter y rupture Expected: 07/29/2017 Request Ischemic cardiom yopathy (Approximate), Atherosclerosis of [place] Ex jose: 07/29/2018 coronary artery, angina presence unspecified, unspecified whether [place] or transplanted heart Essential hypertension, malignant documented as of this encounter Results Uric acid (08/04/2017 12:55 PM EST) P athologist Signature Uric Acid 7.1 3.5 - 8.5 [facility] mg/dL [facility] Specimen Anatomical Collection Method Collection Time Receive d Time (Source) Location / / Volume Laterality Blood specimen 08/04/2017 12:55 8 1:01 (specimen) PM EST PM EST Resulting Agency Comment Spec In Lab Lovely Vicente MD CHEMISTRY ORDERABLES Performing Organization Address City/State/[place] [address] (ABNORMAL) Hemogram (08/04/2017 12:55 PM EST) Analysis Performed At Patho logist Time Signature WBC 15.8 (H) 4.0 - 9.5 [facility] x10(3)/[facility] LABORATORY RBC 3.48 (L) 4.58 - [facility] 5.54 [facility] x10(6)/[facility] LABORATORY Hemoglobin 9.9 (L) 13.7 - [facility] 16.5 gm/dL [facility] Hematocrit 31.4 (L) 40.5 - [facility] DAVIS 48.5 % [facility] MCV 90.2 82.9 - [facility] 93.1 [facility] LABORATORY MCH 28.4 27.5 - [place] RYAN 32.1 pg [facility] MCHC 31.5 (L) 32.0 - [place] ZHAORYAN 35.7 gm/dL [facility] Platelets 310 145 - 357 [facility] x10(3)/[facility] LABORATORY RDWSD 51.8 (H) 36.0 - [place] RYAN 45.0 [facility] LABORATORY RDWCV 15.8 (H) 11.4 - [facility] 13.8 % [facility] MPV 8.9 7.6 - 12.9 [facility] LABORATORY nRBC % Auto 0.0 % [facility] LABORATORY nRBC Abs Auto 0.000 0.000 - [facility] 0.000 [facility] x10(3)/[facility] LABORATORY Specimen Anatomical Collection Method Collection Time Receive d Time (Source) Location / / Volume Laterality Blood specimen 08/04/2017 12:55 8 1:01 (specimen) PM EST PM EST Resulting Agency Comment Spec In Lab Lovely Vicente MD HEMATOLOGY ORDERABLES Performing Organization Address City/State/ZIP Code Phon e Number [place] [id number]OSP[address] LAB[address] (ABNORMAL) Comprehensive metabolic panel (non-fasting) (08/04/2017 12:55 PM EST) P athologist Signature Glucose Lvl 208 (H) 65 - 199 [facility] mg/dL [facility] Comment: Diabetes: >=200 mg/dL plus symp toms BUN 32 (H) 10 - 20 mg/dL [facility] LABORATORY Creatinine 1.58 (H) 0.80 - 1.50 mg/dL [facility] LABORATORY Sodium 136 135 - 145 mmol/L [facility] LABOR[facility]ORY Potassium 5.5 (H) 3.5 - 5.0 mmol/L [facility] - 10.5 mg/dL [facility] Total Protein 6.9 6.1 [...] or in patients with acute kidney failure. [email or web address] [email or web address] Specimen Anatomical Collection Method Collection Time Receive d Time (Source) Location / / Volume Laterality Blood specimen 08/04/2017 12:55 8 1:01 (specimen) PM EST PM EST Resulting Agency Comment Spec In Lab Lovely Vicente MD CHEMISTRY ORDERABLES Performing Organization Address City/State/[place] [address] (ABNORMAL) Hemoglobin A1c (08/04/2017 12:55 PM EST) Analysis Performed At Patho logist Time Signature Hemoglobin A1C 6.2 (H) 4.3 - 5.6 [facility] [...] Avg Gluc See note mg/dL [facility] Comment: Estimated Average Glucose not [...] Additional resources are available on [facility] ADA website. Macario HAMMOND, Ruthann J, Deysi R, et al. ??Tr anslating the A1C assay into estimated average glucose values. ??Diabetes Care 2008:31(8):9397-0384. Specimen Anatomical Collection Method Collection Time Receive d Time (Source) Location / / Volume Laterality Blood specimen 08/04/2017 12:55 8 1:01 (specimen) PM EST PM EST Resulting Agency Comment Spec In Lab Lovely Vicente MD CHEMISTRY ORDERABLES Performing Organization Address City/State/[place] [address] (ABNORMAL) Prothrombin Time (08/04/2017 [...] Organization Address City/State/[place] [address] documented in this encounter Visit Diagnoses Diagnosis Coronary artery rupture Acute myocardial infarction, unspecified site, episode of care unspecified Ischemic cardiomyopathy Other specified forms of chronic ischemi c heart disease Atherosclerosis of [place] coronary arter y, angina presence unspecified, unspecified whether [place] or transplanted heart Essential hypertension, malignant Diabetes mellitus due to underlying cond ition with diabetic nephropathy, unspecified skilled nursing insulin use status documented in this encounter Care Teams Road Roller Operator Hot Mix Relationship Specialty Start Date End Date Lovely Vicente MD PCP - General 04/16/[address] [place] [address] documented as of this encounter
--- OUTSIDE RECORDS SUMMARY | 2022-04-13 08:13 | XMS_ITS | Encounter Summary ---
:1945 Author Organization [facility] [place] [address] Care Team Providers Name Role Phone Lovely Vicente MD Primary Care Provider Reason for Visit Reason Comments Follow-up Encounter Details Date Type Department Care Team Description 07/29/2017 Office Visit Cardiac Surgery at [facility] Yuan Retana MD S/P CABG x 3 [facility] [place] [address] CARDIOTHORACIC SURGERY [phone] [place], [place] [address] (Wo rk) Social History Tobacco [...] evaluation by vascular surgery. Yuan Retana MD [phone] documented in this encounter Plan of Treatment Upcoming Encounters Date Type Specialty Care Team Description 05/28/2022 Appointment Cardiology Zulma Dolan MD [facility] er Dr [address] [place] [address] (Wo rk) 05/28/2022 Laboratory Appointment Lab 05/28/2022 Office Visit Cardiology Zulma Dolan MD [facility] [place] [address] Liz Poole PA [facility] [place] [address] 06/10/2022 Office Visit Dermatology Laura Scherer MD [facility] ER DR [address] [place], [place] 0[address] (Wo rk) documented as of this encounter Visit Diagnoses Diagnosis S/P CABG x 3 Postsurgical aortocoronary bypass status documented in this encounter Care Teams Retail Loss Prevention Specialist Relationship Specialty Start Date End Date Lovely Vicente MD PCP - General 04/16/[address] [place] [address] documented as of this encounter
--- OUTSIDE RECORDS SUMMARY | 2022-04-13 08:13 | XMS_ITS | Encounter Summary ---
:1945 Author Organization [facility] [place] [address] Care Team Providers Name Role Phone Lovely Vicente MD Primary Care Provider Encounter Details Date Type Department Care Team Description 07/29/2017 Transcribe Orders Laboratory Lovely Vicente MD [address] [address] [place] [address] [phone] (Wo rk) Social History Tobacco Use Types [...] Dolan MD [facility] er Dr [place] [address] (Wo rk) 05/28/2022 Laboratory Appointment Lab 05/28/2022 Office Visit Cardiology Zulma Dolan MD [facility] [place] [address] Liz Poole PA [facility] [place] [address] 06/10/2022 Office Visit Dermatology Laura Scherer MD [facility] ER DR [address] [place], [place] [address] (Wo rk) documented as of this encounter Visit Diagnoses Not on filedocumented in this encounter Care Teams County Library Director Relationship Specialty Start Date End Date Lovley Vicente MD PCP - General 04/16/[address] [place] [address] documented as of this encounter
--- OUTSIDE RECORDS SUMMARY | 2022-04-13 08:13 | XMS_ITS | Encounter Summary ---
:1945 [place] [address] Care Team Providers Name Role Phone Lovely Vicente MD Primary Care Provider Encounter Details Date Type Department Care Team Description 07/29/2017 Telephone Pain Aurelia Crawford MD [facility] [place] [address] PAIN CLINIC [phone] [place], [place] [address] (Wo rk) Social History Tobacco [...] MD [facility] [address] [place], [place] [address] (Wo rk) 05/28/2022 Laboratory Appointment Lab 05/28/2022 Office Visit Cardiology Zulma Dolan MD [facility] [place] [address] Liz Poole PA [facility] [place] [address] 06/10/2022 Office Visit Dermatology Laura Scherer MD [facility] DR [address] [place], [place] [address] (Wo rk) documented as of this encounter Visit Diagnoses Not on filedocumented in this encounter Care Teams Welding Machine Operator Thermit Relationship Specialty Start Date End Date Lovely Vicente MD PCP - General 04/16/[address] [place] [address] [address] [place] [address] documented as of this encounter
--- OUTSIDE RECORDS SUMMARY | 2022-04-13 08:13 | XMS_ITS | Encounter Summary ---
:1945 [place] [address] Care Team Providers Name Role Phone Lovely Vicente MD Primary Care Provider Encounter Details Date Type Department Care Team Description 08/03/2017 Hospital Encounter Radiology Library at [place], Tommy Mijares [facility] [place] [facility] [place] [address] VASCULAR SURGERY [phone] [place], [place] [address] (Wo rk) Social History Tobacco [...] Dolan MD [facility] Dr [place], [place] [address] (Wo rk) 05/28/2022 Laboratory Appointment Lab 05/28/2022 Office Visit Cardiology Zulma Dolan [place] [facility] [place] [address] Liz Poole PA [facility] [place] [address] 06/10/2022 Office Visit Dermatology Laura Scherer MD [facility] DR [address] [place], [place] [address] (Wo rk) documented as of [...] Time Received Time / Laterality Volume Narrative [facility] - 08/03/2017 6:01 PM EST This exam is for storage only and is aut o-finalizing. Arik Clement MD G FILM LIBRARY ORDERABLES Performing Organization Address City/State/ZIP Code Phon e Number [place], [place] documented in this encounter Visit Diagnoses Diagnosis Pain Generalized pain documented in this encounter Care Teams Financial Systems Director Relationship Specialty Start Date End Date Lovely Vicente MD PCP - General 04/16/[address] [place] [address] documented as of this encounter
--- OUTSIDE RECORDS SUMMARY | 2022-04-13 08:13 | XMS_ITS | Encounter Summary ---
:1945 Author Organization [facility] [place] [address] Care Team Providers Name Role Phone Lovely Vicente MD Primary Care Provider Encounter Details Date Type Department Care Team Description 08/02/2017 Telephone Pain Management at [facility] [place], [place] [address] Social History Tobacco Use Types Packs/Day [...] Management Center Preauthorization Request Patient: Don Fatima [id number] Fax received from [facility] requesting we obtain prior authorization for Lidocaine patches prescribed by Barbra Soares APRN. RX insurance plan: [employer] RX insurance telephone: [phone] Patient Diagnosis: right foot pain secondary to PVD and ischemia Previous medications attempted: Tylenol, Tramadol, Dilaudid The following action was taken after discussion with the casting machine service operator: _x_ pharmacy informed Authorized dosage or amount: 5% on patch on for 12 hours, then remove for 12 hours. [place] Rodrigez, RN documented in this encounter Plan of Treatment Upcoming Encounters Date Type Specialty Care Team Description 05/28/2022 Appointment Cardiology Zulma Dolan MD [facility] [place], [place] [address] (Wo rk) 05/28/2022 Laboratory Appointment Lab 05/28/2022 Office Visit Cardiology Zulma Dolan MD [facility] [place] [address] Liz Poole PA [facility] [place] [address] 06/10/2022 Office Visit Dermatology Laura Scherer MD [facility] DR [address] [place], [place] [address] (Wo rk) documented as of this encounter Visit Diagnoses Not on filedocumented in this encounter Care Teams Circulation Sales Representative Relationship Specialty Start Date End Date Lovely Vicente MD PCP - General 04/16/[address] [place] [address] documented as of this encounter
--- OUTSIDE RECORDS SUMMARY | 2022-04-13 08:13 | XMS_ITS | Encounter Summary ---
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 [place] [address] [place] [address] [phone] Social History Tobacco Use Types Packs/Day Years [...] Patient presents with ??? Leg Swelling HPI: rGegory Fatima is a 72 y.o. 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 Hank Zhang Vascular Surgery, PGY2 Pager #[phone] Associated attestation - Arik Clement MD - [...] Zulma Dolan MD [facility] [place], [place] [address] (Wo rk) 05/28/2022 Laboratory Appointment Lab 05/28/2022 Office Visit Cardiology Zulma Dolan MD [facility] [address] [facility] [place] [address] 06/10/2022 Office Visit Dermatology Laura Scherer MD [facility] [address] [place], [place] [address] (Wo rk) documented as of [...] Value Ref Test Analysis Performed At [facility] Range Method Time Signature VB Text Department: Vascular Surgery Lab VASCUBASE Report Patient: [id number] (GREGORY FATIMA) CPT: 81734 ICD10: I82.541 Referring Physician: TAMIKO JIMÉNEZ ?? [...] 199 [facility] mg/dL [facility] [...] Address City/State/ZIP Code Phon e Number [address] (ABNORMAL) D-Dimer, Quantitative (07/29/2017 2:15 PM EST) [facility] iHookup Social Method Time Signature D-Dimer, Quant 1,699 (H) 0 - 500 [facility] FEU ng/ml [facility] LABORATORY Comment: The D-Dimer assay [...] Organization Address City/State/[place] [address] (ABNORMAL) Differential, Automated (07/29/2017 2:15 PM EST) [facility] iHookup Social Method Time Signature Neutrophils % 82.5 % [facility] LABORATORY Neutr Abs (ANC) 10.21 (H) 1.70 - [facility] 6.10 [facility] x10(3)/[facility] L LABORATORY Lymphocytes % 7.1 % [facility] LABORATORY Lymphocytes Abs 0.9 0.9 - 3.2 [facility] x10(3)/[facility] LABORATORY Monocytes % 6.5 % [facility] LABORATORY Monocyte Abs 0.8 0.3 - 0.9 [facility] x10(3)/[facility] LABORATORY Eosinophils % 2.7 % [facility] LABORATORY Eosinophils Abs 0.3 0.0 - 0.4 [facility] x10(3)/[facility] LABORATORY Basophils % 0.6 % [facility] LABORATORY Basophils Abs 0.1 0.0 - 0.1 [facility] x10(3)/[facility] LABORATORY Immature Gran % 0.60 % [facility] [...] Organization Address City/State/[place] [address] (ABNORMAL) Hemogram (07/29/2017 2:15 PM EST) Analysis Performed At Patho logist Time Signature WBC 12.4 (H) 4.0 - 9.5 [facility] x10(3)/[facility] LABORATORY RBC 4.17 (L) 4.58 - [facility] 5.54 [facility] x10(6)/[facility] LABORATORY Hemoglobin 12.1 (L) 13.7 - [facility] 16.5 gm/dL [facility] LABORATORY Hematocrit 38.1 (L) 40.5 - [facility] 48.5 % [facility] LABORATORY MCV 91.4 82.9 - [facility] 93.1 [facility] LABORATORY MCH 29.0 27.5 - [facility] 32.1 pg [facility] LABORATORY MCHC 31.8 (L) 32.0 - [facility] RYAN 35.7 gm/dL [facility] LABORATORY Platelets 204 145 - 357 [facility] x10(3)/[facility] LABORATORY RDWSD 50.5 (H) 36.0 - [facility] 45.0 [facility] LABORATORY RDWCV 15.3 (H) 11.4 - [facility] RYAN 13.8 % [facility] LABORATORY MPV 9.4 7.6 - 12.9 [facility] LABORATORY nRBC % Auto 0.0 % [facility] LABORATORY nRBC Abs Auto 0.000 0.000 - [facility] 0.000 [facility] x10(3)/[facility] LABORATORY Specimen Anatomical Collection Method Collection Time Receive d Time (Source) Location / / Volume Laterality Blood specimen 07/29/2017 2:15 PM 018 2:36 (specimen) EST PM EST Resulting Agency Comment Spec In Lab Tamiko Jiménez MD HEMATOLOGY ORDERABLES Performing Organization Address City/State/[place] [address] (ABNORMAL) Prothrombin Time (07/29/2017 2:15 PM EST) P athologist Signature PT 24.4 (H) 11.8 - 14.0 [facility] LABORATORY INR 2.2 (H) 0.9 - 1.1 [facility] [...] City/State/ZIP Code Phon e Number [place] [id number] HOSPITAL LAB[address]ATORY Drive Arterial Duplex Leg, Unil (07/29/2017 11:50 AM EST) Component Value Ref Test Analysis Performed At [facility] Range Method Time Signature VB Text Department: Vascular Surgery Lab VASCUBASE Report Patient: [id number] (GREGORY FATIMA) CPT: 09494 ICD10: Z09;I97.610 Referring Physician: TAMIKO JIMÉNEZ ?? [...] Value Ref Test Analysis Performed At [facility] Range Method Time Signature VB Text Department: Vascular Surgery Lab VASCUBASE Report Patient: [id number] (GREGORY FATIMA) CPT: 88267 ICD10: I82.441 Referring Physician: TAMIKO JIMÉNEZ ?? [...] he calf. Notification: Marquis Pathak MD (pager #[phone]) was notif ied of the preliminary findings. [...] STAT documented in this encounter Care Teams Occupational Therapist'S Assistant Relationship Specialty Start Date End Date Lovely Vicente MD PCP - General 04/16/[address] [place] [address] [address] [place] [address] documented as of this encounter
--- OUTSIDE RECORDS SUMMARY | 2022-04-13 08:13 | XMS_ITS | Encounter Summary ---
:1945 Author Organization [facility] [place] [address] Care Team Providers Name Role Phone Lovely Vicente MD Primary Care Provider Encounter Details Date Type Department Care Team Description 08/03/2017 Telephone Pain Management at [facility] [place], [place] [address] Social History Tobacco Use Types Packs/Day [...] Management Center Preauthorization Request Patient: Don Fatima [id number] Fax received from [facility] requesting we obtain prior authorization for Lidocaine Patches prescribed by Barbra Soares APRN. RX insurance plan: [facility] insurance telephone: [phone] Patient ?? Diagnosis: right foot pain secondary to PVD and ischemia ?? Previous medications attempted: Tylenol, Tramadol, Dilaudid Authorization/Reference number: [id number], PBP Code 801 _x_ denied, provider and patient informed _x_ appeal initiated by provider, patient informed [place] Rodrigez, RN documented in this encounter Plan of Treatment Upcoming Encounters Date Type Specialty Care Team Description 05/28/2022 Appointment Cardiology Zulma Dolan MD [facility] [place], [place] [address] (Wo rk) 05/28/2022 Laboratory Appointment Lab 05/28/2022 Office Visit Cardiology Zulma Dolan MD [facility] [place] [address] Liz Poole PA [facility] [place] [address] 06/10/2022 Office Visit Dermatology Laura Scherer MD [facility] [address] [place], [place] [address] (Wo rk) documented as of this encounter Visit Diagnoses Not on filedocumented in this encounter Care Teams Anesthesiology Fellow Relationship Specialty Start Date End Date Lovely Vicente MD PCP - General 04/16/[address] [place] [address] documented as of this encounter
--- OUTSIDE RECORDS SUMMARY | 2022-04-13 08:13 | XMS_ITS | Encounter Summary ---
:1945 [place] [address] Care Team Providers Name Role Phone Lovely Vicente MD Primary Care Provider Encounter Details Date Type Department Care Team Description 07/16/2017 Telephone Endocrinology at [facility] C Manuela Holliday, [facility] [place] [address] ENDOCRINOLOGY DEPT [phone] [place], [place] [address] (Wo rk) Social History [...] Dolan MD [facility] Dr [place], [place] [address] (Wo rk) 05/28/2022 Laboratory Appointment Lab 05/28/2022 Office Visit Cardiology Zulma Dolan MD [facility] [place] [address] Liz Poole PA [facility] [place] [address] 06/10/2022 Office Visit Dermatology Laura Scherer MD [facility] [address] [place], [place] [address] (Wo rk) documented as of this encounter Visit Diagnoses Not on filedocumented in this encounter Care Teams Watch Band Assembler Relationship Specialty Start Date End Date Lovely Vicente MD PCP - General 04/16/[address] [place] [address] documented as of this encounter
--- OUTSIDE RECORDS SUMMARY | 2022-04-13 08:13 | XMS_ITS | Encounter Summary ---
:1945 [place] [address] Care Team Providers Name Role Phone Lovely Vicente MD Primary Care Provider Reason for Visit Reason Onset Date Comments Questions 07/16/2017 fluid retention Encounter Details Date Type Department Care Team Description 07/16/2017 [place] [facility] [place], Questions ([facility] RN retention ) [place] [phone] Social History Tobacco Use Types Packs/Day [...] the direct number to the HF team ([phone]). She is aware of his appt with SENIOR ELECTRICAL ESTIMATOR Hans on 07/21/17 and the need for labs prior to that visit. verbalized good understanding of the current POC. documented in this encounter Plan of Treatment Upcoming Encounters Date Type Specialty Care Team Description 05/28/2022 Appointment Cardiology Zulma Dolan MD [facility] [address] [place], [place] [address] (Wo rk) 05/28/2022 Laboratory Appointment Lab 05/28/2022 Office Visit Cardiology Zulma Dolan MD [facility] [place] [address] Liz Poole PA [facility] [place] [address] 06/10/2022 Office Visit Dermatology Laura Scherer MD [facility] [address] [place], [place] [address] (Wo rk) documented as of this encounter Visit Diagnoses Not on filedocumented in this encounter Care Teams Engineering Aide Relationship Specialty Start Date End Date Lovely Vicente MD PCP - General 04/16/[address] [place] [address] documented as of this encounter
--- OUTSIDE RECORDS SUMMARY | 2022-04-13 08:14 | XMS_ITS | Encounter Summary ---
:1945 Author Organization [facility] [place] [address] Care Team Providers Name Role Phone Lovely Vicente MD Primary Care Provider Reason for Referral Consultation (Routine) - Closed Specialty Diagnoses / Referred By Contact Referred To Contact Procedures Cardiac Rehabilitation Diagnoses S/P CABG x 3 Yuan Webber, Cardiac Rehab, [address] [place] CARDIOTHORACIC [address] [place] [address] Referral ID Status Reason Start Date Expiration Date Visits V isits Requested Authorized [id number] Closed Consult, 07/14/2017 01/10/2018 36 36 Test & Treat Reason for Visit Auth/Cert Specialty Diagnoses / Procedures Referred By Contact Refer red To Contact Diagnoses STEMI (ST elevation myocardial infarction) NSTEMI STEMI Procedures CARDIAC CATHETERIZATION NAYE IPI Referral ID Status Reason Start Date Expiration Date Visits Requ ested Visits Authorized [id number] 1 1 Encounter Details Date Type Department Care Team Description 07/05/2017 - Hospital Encounter Cardiac Special Dapnhe Shahid MD [facility] [place] [address] Non-ST elevation myocardial infarction ( NSTEMI); 07/14/2017 Care Unit Yuan Preciado MD [facility] [place] [address] S/P CABG x 3 [place] [id number] Social History Tobacco Use Types Packs/Day Years [...] Patient Age: 72 y.o. Birthdate: 1945 Language: Burmese Race: White Ethnicity: Not nor Admit Date: [...] 1:20p Patient to follow-up with Director Of Rotc/heart failure team in one week. An appointment will be made for you. You may call [phone] Patient to follow-up with Cardiac Surgery, Dr. Yuan Webber, in ~ 4 weeks with CXR, EKG. Inpatient Provider Contact Information: [facility] [place] [facility] [place] [address] FAX [phone] Discharge Diagnoses (Hospital Problems) Primary Diagnoses: CAD [...] 33.75) performed by Yuan Webber MD at [facility] MAIN OR ??? PRO CABG, ARTERY-VEIN, TWO N/A 07/07/2017 @CABG, TWO VENOUS GRAFTS & ARTERIAL GRAFT (WRVU 7.93) performed by Yuan Webber MD at [facility] MAIN OR ??? PRO COLONOSCOPY, REMV LESN, SNARE 01/16/2014 COLONOSCOPY, POLYPECTOMY, REMOVAL LESION BY SNARE performed by Nohemi Jaimes MD at [facility] ENDOSCOPY ??? PRO ENDOSCOPY W/VIDEO-ASST VEIN HARVEST, CABG Right 07/07/2017 ENDOSCOPIC HARVEST VEIN(S) FOR CABG (WRVU 0.31) performed by Yuan Webber MD at [facility] MAIN OR ??? PRO THYROIDECTOMY 03/28/2013 THYROIDECTOMY, TOTAL OR COMPLETE performed by Manny Mcknight MD at [facility] MAIN OR Prior To Admission Medications Prescriptions Prior to Admission Medication Sig Dispense Refill Last Dose ??? levothyroxine (SYNTHROID) 175 mcg Tablet Take 1 tablet by mouth daily. 90 tablet 3 07/05/2017 [id number] ??? ascorbic acid, vitamin C, (VITAMIN C) [...] he was taken emergently to the lab coordinator for an ongoing STEMI. An IABP was [...] not take or discontinue any prescription or jcyq-ana-lonqaqs medications without asking your doctor or pharmacist [...] day to have your insulin doses adjusted. [facility] Endocrine clinic office Discharge Instructions: Call your doctor if: You have a fever of greater than 101 degrees, shaking chills, if you develop redness or drainage from your incision sites, or if you have questions. Please call your surgeon's office if you have any discharge or drainage from your chest incision. Your surgeon, Dr. Yuan Webber and/or the Cardiac Surgery Physician Half Sole Fitter Team may be reached at . Weight: [...] Dr. Yuan Webber. You may use a [place] Track or treadmill but avoid any pulling [...] friends, go to a movie, go to yazidi, etc. Heavy activities: No hunting, skiing, jogging, snow shoveling, snowmobiling, lawn mowing, swimming, golf or tennis until after your return appointment with the surgeon. Do not ride motorcycles, HC Rods and Customs's tractors or horses. Avoid the use of [...] 1:20p Patient to follow-up with Director Of Rotc/heart failure team in one week. Appointment will be made for you. You may call [phone] Patient to follow-up with Cardiac Surgery, Dr. Yuan Webber, in ~ 4 weeks with CXR, EKG. Cardiac Rehabilitation: Gregory Hoang was seen today regarding participation in the outpatient Phase 2 Cardiac Rehabilitation at [facility]. The patient agrees to a referral to this program. The referral will be sent at discharge and the patient should be contacted by the Program within 1- 2 weeks from discharge. ?? Future Appointments and Orders Future Appointments Provider Department Dept Phone 09/07/2017 3:00 PM LAB, THREE L Lab 3L [facility] [phone] 09/07/2017 4:00 PM Luz Prescott MD Endocrinology at [facility] [phone] Future Orders Complete By Expires EKG 12 Lead [EKG1 Custom] 08/14/2017 02/13/2018 Process Instructions: Scheduling Instructions: Questions: Which location will this be performed?: [facility] Is a rhythm strip needed?: No If EKG Reason is Pre-op Evaluation, indicate diagnosis for surgery.: XR Chest PA & Lateral (Generic) [[id number] [id number] Custom] 08/14/2017 02/13/2018 Process Instructions: Scheduling Instructions: Questions: Where will study be performed?: [facility] Portable exam?: Reason for exam and clinical history: CABG x 3 Other pertinent information: Stat read required?: Date of injury if applicable: Requested Time: Referral to Cardiac Rehab [PYZ016 Custom] As directed Process Instructions: If no progress note charted, please enter Clinical details in comments. Scheduling Instructions: Questions: My question or request is: s/p CABG. Cardiac rehab at [facility] Referral to Home Health - at DISCHARGE [LHC1381 CPT(R)] As directed Process Instructions: Scheduling Instructions: Comments: DOCUMENTATION FOR VNA SERVICES (INCLUDING THOSE PATIENTS WITH MEDICARE COVERAGE REQUIRING HOME VNA SERVICES AND/OR HOSPICE SERVICES) PATIENT'S LOCATION: Gregory Hoang [address] [place] [address] [place] [id number] (home) Telephone Information: Ems Educator's Name: self In discussion with the attending physician, it is certified that this patient is under their care and that they, or a Nurse Practitioner, or Physician Half Sole Fitter who is working directly with them, had [...] ([facility] [place] [employer]-is in [place] PHONE: [phone] FAX: [phone] RN orders: Cardiopulmonary assessment, incisional assessment, assess vital signs, assessment of rehab progress, medication management and effectiveness, home safety evaluation. Please draw INR if indicated and send result to:Dr Vicente [phone] PT ORDERS: Continue rehab for endurance, gait stability and strength with mobility and transfers. Home safety evaluation. Home exercise program if appropriate. Start of Care Date:24-48 hours after discharge SPECIAL INSTRUCTIONS: For any follow up questions, needs, or issues please call the Cardiac Surgery Office at [phone] FOR MEDICARE ONLY: (please delete this section [...] 07/17/2017 Signed: Martha Teague APRN [facility] [place]iac [place] [facility] [place] [address] FAX [phone] Date: 07/14/2017 CC: MD Ivania Cr Betsy, PA [address] [place] [phone] documented in this encounter Discharge Instructions Discharge [...] day to have your insulin doses adjusted. [facility] Endocrine clinic office Patient InstructionsStMartha mcdonald APRN [...] not take or discontinue any prescription or tugq-iro-hwwrbln medications without asking your doctor or pharmacist [...] juice or regular (not diet) soda 6 RAREFORMs small box of raisins 4 glucose tablets [...] day to have your insulin doses adjusted. [facility] Endocrine clinic office ? Discharge Instructions: ?? Call your doctor if: You have a fever of greater than 101 degrees, shaking chills, if you develop redness or drainage from your incision sites, or if you have questions. Please call your surgeon's office if you have any discharge or drainage from your chest incision. Your surgeon, Dr. Yuan Webber and/or the Cardiac Surgery Physician Half Sole Fitter Team may be reached at . ?? [...] Dr. Yuan Webber. You may use a [place] Track or treadmill but avoid any pulling [...] friends, go to a movie, go to yazidi, etc. ?? Heavy activities: No hunting, skiing, jogging, snow shoveling, snowmobiling, lawn mowing, swimming, golf or tennis until after your return appointment with the surgeon. Do not ride motorcycles, HC Rods and Customs'[place] tractors or horses. Avoid the use of [...] ?? Patient to follow-up with Director Of Rotc/heart failure team in one week. An appointment has been made for you, you can call [phone] ?? Patient to follow-up with Cardiac Surgery, Dr. Yuan Webber, in ~ 4 weeks with CXR, EKG. ? Cardiac Rehabilitation: Gregory Hoang??was seen today regarding participation in the outpatient Phase 2 Cardiac Rehabilitation at [facility]. ?? The patient agrees to a referral to this program.? The referral will be sent at discharge and the patient should be contacted by the Program within 1- 2 weeks from discharge. ? Future Appointments and Orders Future Appointments Provider Department Dept Phone ?? 09/07/2017 3:00 PM LAB, THREE L Lab 3L [facility] [phone] ?? 09/07/2017 4:00 PM Luz Prescott MD Endocrinology at [facility] [phone] Future Orders Complete By Expires ?? EKG 12 Lead [EKG1 Custom] 08/14/2017 02/13/2018 ?? Process Instructions: ? Scheduling Instructions: ? Questions: ? Which location will this be performed?: [facility] ?? Is a rhythm strip needed?: No ?? If EKG Reason is Pre-op Evaluation, indicate diagnosis for surgery.: ?? XR Chest PA & Lateral (Generic) [[id number] Custom] 08/14/2017 02/13/2018 ?? Process Instructions: ? Scheduling Instructions: ? Questions: ? Where will study be performed?: [facility] ?? Portable exam?: ?? Reason for exam and clinical history: CABG x 3 ?? Other pertinent information: ?? Stat read required?: ?? Date of injury if applicable: ?? Requested Time: ?? Referral to Cardiac Rehab [ULG778 Custom] As directed ? Process Instructions: ?? If no progress note charted, please enter Clinical details in comments. ?? Scheduling Instructions: ? Questions: ? My question or request is: s/p CABG. Cardiac rehab at [facility] ? Arrangements for VNA/home care: As above. [...] RN - 07/14/2017 2:34 PM EST The patient/assistance representative has been provided a list of Home Health Agencies/DME vendors which serve their preferred geographic area. A letter describing our affiliations was reviewed with them and theywere educated about their right to choose where referrals are placed. Patient requests referral to [facility] PHONE: [phone] FAX: [phone] Expected date of discharge: 07/14 Referral routed to the [employer] for matching with agency/vendor and to provide [...] day to have your insulin doses adjusted. [facility] Endocrine clinic office Kathie Carrera APRN [facility] Endocrinology Diabetes Management Pager [phone] 20 minutes of this 35 minute visit was spent with the patient in counseling on diabetes and treatment plan, reviewing all glucose and insulin data as well as relevant laboratory results with the patient, and coordination of care on the inpatient unit including nursing and primary team. uZlma Andres, RN - 07/14/2017 10:30 AM EST The patient/assistance representative has been provided a list of Home Health Agencies/DME vendors which serve their preferred geographic area. A letter describing our affiliations was reviewed with them and theywere educated about their right to choose where referrals are placed. Patient requests referral to : Yasmani Munguia ([facility] [place] [employer]-is in [place]) PHONE: [phone] FAX: [phone]. Expected date of discharge: 07/14/17 Referral routed to the [employer] for matching with agency/vendor and to provide [...] hours. If BG remains greater than 240, mznqah64 units (no more than three times) &??call [...] #6 s/p CABG X3. FSBG 80 at [place], reports no symptoms but did drink some [...] Will continue to follow Katerin Azul APRN [facility] Endocrinology Diabetes Management Pager [phone] minutes of this 25 minute visit [...] of infiltration/extravasation Discussed plan of care with DATA OFFICER and RN. Elevate exrtemity and apply intermittent Warm compresses. Name of MD contacted Dr. Shaw Brown 07/13/2017 @ 0682 Name of RN contacted Ale Rangel RN Name of Pharmacist if consulted NA Name of Plastics MD ( if consulted) NA (Mandatory photo for infiltrations/ extravasations scoring a stage 2 or greater, but recommended forstage 1)( include measuring tape and identifier in the photo) BUSINESS APPLICATIONS DEVELOPER CARING FOR THIS PATIENT WILL CONTINUE [...] measuring tape and identifier in the photo) BUSINESS APPLICATIONS DEVELOPER CARING FOR THIS PATIENT WILL CONTINUE [...] regard to both infiltrates addressed by this fiction writer.All of Mr. Hoang's responses were entirely appropriate. Images of infiltrates attached here. Martha Sharp APRN - 07/13/2017 8:01 AM EST Cardiac Surgery Progress Note: ID: [id number] 72 year old male POD#6 s/p CABGx3 [...] discharge. ?? I have met with the patient/assistance representative to discuss discharge planning needs. I have provided the [facility], Office of Care Management letter from the Automation Qtp Tester pertaining to rehab referrals. I have also provided a letter describing our affiliations within the [facility] and educated them about their right to choose where referrals are placed. ?? I reviewed the different levels of rehab including SNF, swing, acute and LTAC with the patient/assistance representative. ?? The patient/assistance representative has been provided a list of facilities within their preferred geographic area. ?? I have requested that the patient/assistance representative provide at least three choices for referral. ?? The patient/assistance representative have requested referrals to: ?? 1. . ?? 2. [facility] ?? 3. More to be entered ?? Expected date of discharge: 07/14 Note routed to [employer] who will communicate referrals to facilities and [...] hours. If BG remains greater than 240, [id number] units (no more than three times) & [...] hours. If BG remains greater than 240, skqybg50 units (no more than three times) & call for new basal insulin orders. ??If less than 240 after two hours, give no insulin and resume prior schedule. Will continue to follow Katerin Patel. STACIE Azul [facility] Endocrinology Diabetes Management Pager [phone] 20 minutes of this 35 minute visit was spent with the patient in counseling on diabetes and treatment plan, reviewing all glucose and insulin data as well as relevant laboratory results with the patient, and coordination of care on the inpatient unit including nursing and primary team. Makayla Stevenson APRN - 07/12/2017 9:52 AM EST Cardiac Surgery Progress Note: ID: [id number] 72 year old male POD#5 s/p CABGx3 [...] 07/11/2017 7:18 PM EST Patient arrived from [facility]. VSS. MSI dressing pulled [...] hours. If BG remains greater than 240, iparsk13 units (no more than three times) & [...] AM EST Cardiac Surgery Progress Note: ID: [id number] 72 year old male POD#4 s/p CABGx3 [...] hours. If BG remains greater than 240, nfdiht65 units (no more than three times) & [...] AM EST Cardiac Surgery Progress Note: ID: [id number] 72 year old male POD#3 s/p CABGx3 [...] Gas) No results found for: PHART, PO2ART, MIR3EVV Assessment/Plan: 72 year old male POD#3 s/p [...] Encounter Note Patient Name: Gregory Hoang : [id number] MR#: [id number] Admit Date: 07/05/2017 4:20 PM Hospital Day 4 days Narrative: Patient was sitting in chair, hugging heart pillow, opened his eyes, nodding to come into room Assessment: Patient was sleepy. Intervention and Outcome: Introduced chief design branch services and patient reached his hand out in appreciation. Follow-up: Regular Senior Care Provider remains available for support. Time in Direct Care: 5 min. Mami Thao 07/09/2017 Philipp, Nick aPtel MD - 07/09/2017 1:35 PM EST STAFF [...] 07/09/2017 10:45 AM EST Report given to aadc plans staff officer to cover care Maddison Cee PA - 07/09/2017 9:00 AM EST Cardiac Surgery Progress Note: ID: [id number] 72 year old male POD#2 s/p CABGx3 [...] of Cardiac Surgery Date: 07/09/[address] [facility] - 07/09/2017 1:[address] [...] when IABP d/c'ed. Gretchen Carolina, PT Pager [phone] Maddison Cee PA - 07/08/2017 11:27 AM EST Cardiac Surgery Progress Note: ID: [id number] 72 year old male POD#1 s/p CABGx3 [...] unit. NICK SEGAL MD 07/08/[address] [facility] - 07/08/2017 4:[address] [...] in place in R femoral. No hematoma. SENIOR DATABASE ADMINISTRATOR- Intact Psych- Anxious Skin- Dry, no peripheral [...] intact. IABP in place in R femoral. SENIOR DATABASE ADMINISTRATOR- Intact Psych- Anxious Skin- Dry, no peripheral [...] note for details. DAPHNE SHAHID MD Pager [phone] Jet Mckenna MD - 07/05/2017 6:48 PM EST Preliminary Cardiac Catheterization Procedure Note: Procedure(s) performed: Left heart cath, IABP insertion Access: Right SOFTWARE QUALITY ASSURANCE SPECIALIST-->8fr IABP A time-out was conducted prior to [...] Heparin gtt maintained. Pt transferred to lab coordinator. documented in this encounter H&P Notes Daphne Shahid MD - 07/05/2017 6:08 PM EST CARDIOLOGY HISTORY & PHYSICAL EXAM Date of Admission: 07/05/2017 ( Hospital Day 0 days ) Responsible Attending: Daphne Shahid MD PCP: Lovely Vicente MD PCP#: [phone] Patient Active Problem List Diagnosis Code ??? [...] significant valvular disease. Taken to the lab coordinator urgently for ongoing STEMI. [facility] Labs: INR 1.0 WBC 5.88 Hgb 12.9 [...] I/O - s/p lasix in the lab coordinator, redose to aim net neg 1L by [...] - ISS - hold metformin - f/u [facility] #Home Meds - continue levothyroxine 175mcg - CPAP at night # Routine - DVT PPx: heparin drip - Diet: NPO - Code Status: FULL - Dispo: [facility] Cedric Bey MD Internal Medicine, PGY-2 Cardiology S1, Team Pager # [phone] CARDIOLOGY ATTENDING NOTE Patient: Gregory Hoang Date [...] amenable for PCI. DAPHNE SHAHID MD Pager [phone] documented in this encounter Miscellaneous Notes Consult Note - Daphne Shahid MD - 07/14/2017 11:46 AM EST Heart Failure Service Inpatient Consult Note Gregory Hoang Date of : 1945 Age: 72 y.o. Today's date: 07/14/17 PCP: Lovely Vicente MD PIERCER: None Place of Service: [facility] Reason for Consult: Dr. Webber has requested [...] 33.75) performed by Yuan Webber MD at [facility] MAIN OR ??? PRO CABG, ARTERY-VEIN, TWO N/A 07/07/2017 @CABG, TWO VENOUS GRAFTS & ARTERIAL GRAFT (WRVU 7.93) performed by Yuan Webber MD at [facility] MAIN OR ??? PRO COLONOSCOPY, REMV LESN, SNARE 01/16/2014 COLONOSCOPY, POLYPECTOMY, REMOVAL LESION BY SNARE performed by Nohemi Jaimes MD at [facility] ENDOSCOPY ??? PRO ENDOSCOPY W/VIDEO-ASST VEIN HARVEST, CABG Right 07/07/2017 ENDOSCOPIC HARVEST VEIN(S) FOR CABG (WRVU 0.31) performed by Yuan Webber MD at [facility] MAIN OR ??? PRO THYROIDECTOMY 03/28/2013 THYROIDECTOMY, TOTAL OR COMPLETE performed by Manny Mcknight MD at [facility] MAIN OR Outpt Meds: Current [...] studies: EKG 07/14/17: NSR 75 bpm, REAL PROPERTY APPRAISER anterior infarct, LAD CXR 07/11/17: FINDINGS: Sternotomy wires. The patient has been extubated, left chest tube removed, and F[place]-Suzi catheter removed since the 07/07/2017 study. Atelectasis [...] was discussed with Zehra. Jaden Kelley MD Perfume Compounder Pager [phone] CARDIOLOGY ATTENDING NOTE Patient: Gregory Hoang Date [...] heart failure clinic. DAPHNE SHAHID MD Pager [phone] Plan of Care - Alden Chavarria, LOCOMOTIVE ENGINEER - 07/14/2017 11:35 AM EST Problem: [...] Discharge Disposition: home with assist Alden Chavarria, LOCOMOTIVE ENGINEER Pager: [phone] Inpatient Physical Therapy Problem: Acute Rehab Services [...] sit/sit to supine -- Bed Mobility Goal, Holmes Level supervision required -- Bed Mobility Goal, [...] - 3 days -- Gait Training Goal, Holmes Level supervision required -- Gait Training Goal, [...] days -- Transfer Training Goal, Activity Type zdv-bo-eoyfl/bpuod-fj-fpv;lzo-xw-hkyra/xbfvi-xj-oke;toilet -- Transfer Train Goal, Holmes Level supervision required -- Transfer Training Goal, [...] keeping present for 2 days per family. Operator Automated Process noted of frustrations, house keeping sent to room. Patient offered showered twice, refused. at bedside, frustrated that shower not complete, informed that patient had refused several times. requesting to see CAMP COUNSELOR, paged sent to Martha, will come to bedside (middle of consult). not willing to wait, Martha notified that family had gone home. Encouraged to come for morning rounds a t 8am. Diabetes team at bedside - insulin adjustments made. Call cabello in reach. Continue to monitor. PLAN MOVING FORWARD: Ambulate, dressing changes BID, Please change drsg at 4am per Martha CAMP COUNSELOR request. INDIVIDUALIZED FALL PREVENTION INTERVENTIONS: Patient-specific fall [...] levels on the lower side, 60ml of Mccurtain juice given after a FS of 80. [...] Conf 07/13/17 0502 Interdisciplinary Rounds/Family Conf Participants leather case finisher;dietitian/nutrition services;nursing;occupational therapy;patient;pharmacy;physical therapy;physician Plan of Care - [...] Anticipated Discharge Disposition: home with assist Pager: [phone] CLARISSA SEGAL, PT 07/12/2017 Physical Therapy Rehabilitation [...] to sit/sit to supine Bed Mobility Goal, Holmes Level supervision required Bed Mobility Goal, Additional Goal adheres to psternal precautions for transfer Goal: Gait Training Goal Stand Alone Therapy Goal Outcome: Ongoing (Interventions Implemented as Appropriate) 07/12/17 1225 Gait Training Goal Gait Training Goal, Date Established 07/12/17 Gait Training Goal, Time to Achieve 2 - 3 days Gait Training Goal, Holmes Level supervision required Gait Training Goal, Assist [...] 3 days Transfer Training Goal, Activity Type ewc-bw-coukm/mhojr-cw-imr;pep-rc-tehwc/gnfdr-yz-vlf;toilet Transfer Train Goal, Holmes Level supervision required Transfer Training Goal, Additional Goal adheres to sternal precautions during transfer Consult Note - Octavia Vaughn RN - 07/12/2017 10:50 AM EST [facility] CARDIAC REHABILITATION Gregory Hoang was seen today regarding participation in the outpatient Phase 2 Cardiac Rehabilitation at [facility]. The patient agrees to a referral to [...] IV site, amio to other piv and FOOD AND BEVERAGE ASSISTANT MANAGER at bedside to help assess, IV [...] Ongoing (Interventions Implemented as Appropriate) 07/11/17199907/11/17200907/12/[address] [facility] Daily Care Interventions Self-Care Promotion -- [...] he stood and marched in place. [place] weak, wanting to sit back down. Remained in chair until 1820 when he was assisted back to bed. He then promptly went back in rapid atrial fib.Dr. Maldnoado notified, aware and wanting to wait before [...] Outcome: Ongoing (Interventions Implemented as Appropriate) 07/05/17 5508 Mutuality/Individual Preferences What Anxieties, Fears or Concerns [...] Health/Prescription Coverage: Primary Insurance: MEDICARE Secondary Insurance: [facility] [place] Prescription Coverage: yes [facility] Pharmacy: [facility] [place] Other: none Primary Care Provider: Lovely Vicente MD [phone] Patient/Caregiver Goals of Treatment:live and get my breath back Potential Needs for Transition of Care: Rehab/SNF: [facility]; [facility] Home Health: NA DME: TBD Dialysis: na Community Resources: available Transportation: yes Other: none Anticipated Barriers to Discharge/Special Considerations: none Plan: Likely SNF Rehab before home A member of the Care Management team will continue to monitor progress, follow for continuity of care and assist with transition of care planning. ERLIN Weiss Pager: [phone] Consult Note - Katerin Azul RN - [...] review of snf diabetes care. Diabetes History: Gregory Hoang has [...] potential to d/c gtt and start CF. custodial diabetes care: Medications - Outpatient treatment regimen recommendations pending based on the hospital course. Monitoring - continue BG tid ac & hs Diet - low fat/low carb diet Exercise - weight-bearing exercise 30 min/day, as tolerated Thank you for allowing us to provide care for your patient W/E coverage, Dr. Jeane Tatum, pager [phone] Katerin Patel. STACIE Azul Endocrinology Diabetes Management Pager [phone] Plan of Care - Stephanie Godoy RN [...] Webber MD - 07/07/2017 6:27 PM EST [facility] Operative Note Patient Name: Gregory Hoang : [id number] MR#: [id number] Case Date: 07/07/2017 Surgeon: Surgeon(s) and Role: * Yuan Webber MD - Primary * Michael Drake PA - Physician Half Sole Fitter * Linda Flores PA - Physician Half Sole Fitter Preoperative diagnosis: 3VD Postoperative diagnosis: CAD, severe [...] Operative Note Patient Name: Gregory Hoang : [id number] MR#: [id number] Case Date: 07/07/2017 Surgeon: Surgeon(s) and Role: * Yuan Webber MD - Primary * Michael Drake PA - Physician Half Sole Fitter * Linda Flores PA - Physician Half Sole Fitter Preoperative diagnosis: 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 Postoperative diagnosis: CAD, severe [...] this patient.) Plan of Care - Stephanie Goody RN - 07/07/2017 6:33 AM EST Problem: [...] code status: Full Code Katty Jovani, MS3 [facility] Cardiology S1 (Pager [phone]) Plan of Care - Emelia Ibarra RN [...] with other involved physicians Yuan Webber MD [phone] Med Student Progress Note - Jovani Katty [...] BiPAP - s/p lasix in the lab coordinator, was net -1.5L - s/p plavix load, [...] [facility] Cardiology S1 (Pager [phone]) Plan of Care - Stephanie Godoy RN [...] urinal without difficulty. Lasix given in lab coordinator, 1.4 L out at this time. Pt [...] Zulma Dolan MD [facility] [address] [place], [place] [address] (Wo lissa) 05/28/2022 Laboratory Appointment Lab 05/28/2022 Office Visit Cardiology Zulma Dolan MD [facility] [place] [address] Liz Poole PA [facility] [place] [address] 06/10/2022 Office Visit Dermatology Laura Scherer MD [facility] [address] [place], [place] [address] (Wo rk) Scheduled Orders Name [...] procedure are i n the results section. SHIP ERECTOR SCAN 07/15/2017 12:00 Res ults for [...] Routine 07/08/2017 4:00 Results f or this ([facility]) AM EST procedure are i n the [...] section. TYPE AND SCREEN Routine 07/06/2017 12:00 ([facility]/CGP/SHANDA) PM EST APTT STAT 07/06/2017 11:24 Results [...] Routine 07/06/2017 8:10 Results f or this ([facility]) AM EST procedure are i n the [...] Routine 07/05/2017 8:20 Results f or this ([facility]) PM EST procedure are i n the [...] Timed 07/05/2017 4:55 Results f or this ([facility]) PM EST procedure are i n the [...] 2017 EXAMINATION: XR CHEST PA AND LATERAL ([employer]) CLINICAL HISTORY: CABG x 3 TECHNIQUE: PA [...] Teague APRN IMG DX ORDERABLES SCAN DOC: SHIP ERECTOR (07/15/2017 12:00 AM EST) Narrative 07/15/2017 [...] Signature POC Glucose 186 65 - 199 [facility] Comment: Supplemental ranges: <140 mg/dL before meals <180 mg/dL all other times of the day Specimen Anatomical Collection Method Collection Time Receive d Time (Source) Location / / Volume Laterality Blood specimen 07/14/2017 11:56 7 (specimen) AM EST 11:56 AM EST Yuan Webber MD POINT OF CARE TEST ORDERABLE S Performing Organization Address City/[facility]/[place] [address] POCT Glucose (07/14/2017 7:52 AM EST) athologist Signature POC Glucose 126 65 - 199 [facility] mg/dL [facility] Comment: Supplemental [...] Address City/State/[place] [address] (ABNORMAL) Prothrombin Time (07/14/2017 [...] Wilson STACIE HEMATOLOGY ORDERABLES Performing Organization Address City/[facility]/[place] [address] Potassium (07/14/2017 4:46 AM EST) athologist Signature Potassium 4.3 3.5 - 5.0 [facility] mmol/L [facility] Comment: [...] Wilson STACIE CHEMISTRY ORDERABLES Performing Organization Address City/[facility]/[place] [address] POCT Glucose (07/14/2017 4:34 AM EST) athologist Signature POC Glucose 115 65 - 199 [facility] mg/dL [facility] Comment: [...] Address City/State/ZIP Code Phon e Number [address] POCT Glucose (07/13/2017 11:33 PM EST) athologist Signature POC Glucose 132 65 - 199 [facility] mg/dL [facility] Comment: Supplemental [...] Address City/State/ZIP Code Phon e Number [address] POCT Glucose (07/13/2017 9:25 PM EST) athologist Signature POC Glucose 121 65 - 199 [facility] mg/dL [facility] Comment: Supplemental [...] Address City/State/ZIP Code Phon e Number [address] POCT Glucose (07/13/2017 4:55 PM EST) athologist Signature POC Glucose 79 65 - 199 [facility] SU mg/dL [facility] Comment: Supplemental [...] Address City/State/ZIP Code Phon e Number [address] POCT Glucose (07/13/2017 11:16 AM EST) athologist Signature POC Glucose 163 65 - 199 [facility] mg/dL [facility] Comment: Supplemental [...] Address City/State/ZIP Code Phon e Number [address] POCT Glucose (07/13/2017 8:07 AM EST) athologist Signature POC Glucose 96 65 - 199 [facility] mg/dL [facility] Comment: Supplemental [...] Address City/State/ZIP Code Phon e Number [address] (ABNORMAL) Prothrombin Time [...] Organization Address City/State/[place] [address] (ABNORMAL) Basic Metabolic Panel (non-fasting) (07/13/2017 4:26 AM EST) athologist Signature Glucose Lvl 95 65 - 199 [facility] mg/dL [facility] Comment: Diabetes: >=200 mg/dL plus symp toms BUN 25 (H) 10 - 20 mg/dL [facility] Creatinine 1.19 0.80 - 1.50 mg/dL [facility] Sodium 143 135 - 145 mmol/L [facility] Potassium 3.7 3.5 - 5.0 mmol/L [facility] [...] Calcium 7.7 (L) 8.5 - 10.5 mg/dL [facility] Estimated GFR 60 >=60 [facility] Comment: The reported eGFR should be multiplied b y 1.2 for patients. The MDRD is not an appropriate measure o f renal function for patients with body mass extremes or in patients with acute kidney failure. http://[employer]/DHnkdep http://[employer]/DHMCnkf Specimen Anatomical Collection Method Collection Time Receive d Time (Source) Location / / Volume Laterality Blood specimen 07/13/2017 4:26 AM 017 4:46 (specimen) EST AM EST Resulting Agency Comment Spec In Lab Makayla Wilson APRN CHEMISTRY ORDERABLES Performing Organization Address City/[facility]/ZIP Code Phon e Number [address] POCT Glucose (07/13/2017 3:52 AM EST) athologist Signature POC Glucose 93 65 - 199 [facility] mg/dL [facility] Comment: Supplemental ranges: <140 mg/dL before meals <180 mg/dL all other times of the day Specimen Anatomical Collection Method Collection Time Receive d Time (Source) Location / / Volume Laterality Blood specimen 07/13/2017 3:52 AM 017 3:52 (specimen) EST AM EST Yuan Webber MD POINT OF CARE TEST ORDERABLE S Performing Organization Address City/[facility]/ZIP Code Phon e Number [address] POCT Glucose (07/13/2017 12:21 AM EST) athologist Signature POC Glucose 80 65 - 199 [place] mg/dL [facility] Comment: Supplemental ranges: <140 mg/dL before meals <180 mg/dL all other times of the day Specimen Anatomical Collection Method Collection Time Receive d Time (Source) Location / / Volume Laterality Blood specimen 07/13/2017 12:21 7 (specimen) AM EST 12:21 AM EST Yuan Webber MD POINT OF CARE TEST ORDERABLE S Performing Organization Address City/[facility]/ZIP Code Phon e Number [address] POCT Glucose (07/12/2017 8:22 PM EST) athologist Signature POC Glucose 119 65 - 199 [place] mg/dL [facility] Comment: Supplemental [...] Address City/State/ZIP Code Phon e Number [address] POCT Glucose (07/12/2017 4:02 PM EST) athologist Signature POC Glucose 114 65 - 199 [place] mg/dL [facility] Comment: Supplemental [...] Address City/State/ZIP Code Phon e Number [address] POCT Glucose (07/12/2017 11:28 AM EST) athologist Signature POC Glucose 164 65 - 199 [place] mg/dL [facility] Comment: Supplemental [...] Address City/State/ZIP Code Phon e Number [address] POCT Glucose (07/12/2017 7:34 AM EST) athologist Signature POC Glucose 109 65 - 199 [facility] mg/dL [facility] Comment: Supplemental ranges: <140 mg/dL before meals <180 mg/dL all other times of the day Specimen Anatomical Collection Method Collection Time Receive d Time (Source) Location / / Volume Laterality Blood specimen 07/12/2017 7:34 AM 017 7:34 (specimen) EST AM EST Yuan Webber MD POINT OF CARE TEST ORDERABLE S Performing Organization Address City/State/[place] [address] (ABNORMAL) Basic Metabolic Panel (non-fasting) (07/12/2017 4:11 AM EST) P athologist Signature Glucose Lvl 92 65 - 199 [facility] mg/dL [facility] Comment: Diabetes: >=200 mg/dL plus symp toms BUN 31 (H) 10 - 20 mg/dL [facility] Creatinine 1.23 0.80 - 1.50 mg/dL [facility] Sodium 145 135 - 145 mmol/L [facility] Potassium Not Perf 3.5 - 5.0 mmol/L [facility] Comment: Duplicate order Please note: [...] mg/dL [facility] Estimated GFR 58 (L) >=60 [facility] Comment: The reported eGFR should be multiplied b y 1.2 for patients. The MDRD is not an appropriate measure o f renal function for patients with body mass extremes or in patients with acute kidney failure. http://[employer]/DHnkdep http://[employer]/DHnkf Specimen Anatomical Collection Method Collection Time Receive d Time (Source) Location / / Volume Laterality Blood specimen 07/12/2017 4:11 AM 017 8:57 (specimen) EST AM EST Resulting Agency Comment Spec In Lab Makayla Wilson APRN CHEMISTRY ORDERABLES Performing Organization Address City/State/[place] [address] (ABNORMAL) Prothrombin Time (07/12/2017 [...] [place] STACIE HEMATOLOGY ORDERABLES Performing Organization Address City/[facility]/[place] [address] Potassium (07/12/2017 4:11 AM EST) athologist Signature Potassium 3.8 3.5 - 5.0 [facility] mmol/L [facility] Comment: [...] Agency Comment Spec In Lab Makayla Katie GRINDER SET UP OPERATOR THREAD TOOL CHEMISTRY ORDERABLES Performing Organization Address City/[facility]/[place] [address] POCT Glucose (07/12/2017 4:10 AM EST) athologist Signature POC Glucose 90 65 - 199 [facility] mg/dL [facility] Comment: Supplemental [...] Address City/State/ZIP Code Phon e Number [address] POCT Glucose (07/11/2017 11:57 PM EST) athologist Signature POC Glucose 98 65 - 199 [facility] Comment: Supplemental [...] Address City/State/[place] [address] POCT Glucose (07/11/2017 8:32 PM EST) athologist Signature POC Glucose 146 65 - 199 [facility] Comment: Supplemental [...] Address City/State/[place] [address] XR Chest PA & [...] e xtubated, left chest tube removed, and Folsom-Suzi catheter removed since the study. Atelectasis at [...] e xtubated, left chest tube removed, and Folsom-Suzi catheter removed since the study. Atelectasis at [...] POC Glucose 223 (H) 65 - 199 [facility] mg/dL [facility] Comment: [...] Address City/State/ZIP Code Phon e Number [address] POCT Glucose (07/11/2017 11:55 AM EST) P athologist Signature POC Glucose 176 65 - 199 [place] mg/dL [facility] Comment: Supplemental ranges: <140 mg/dL before meals <180 mg/dL all other times of the day Specimen Anatomical Collection Method Collection Time Receive d Time (Source) Location / / Volume Laterality Blood specimen 07/11/2017 11:55 7 (specimen) AM EST 11:55 AM EST Yuan Webber MD POINT OF CARE TEST ORDERABLE S Performing Organization Address City/[facility]/[place] [address] POCT Glucose (07/11/2017 7:53 AM EST) athologist Signature POC Glucose 189 65 - 199 [place] mg/dL [facility] Comment: Supplemental ranges: <140 mg/dL before meals <180 mg/dL all other times of the day Specimen Anatomical Collection Method Collection Time Receive d Time (Source) Location / / Volume Laterality Blood specimen 07/11/2017 7:53 AM 017 7:53 (specimen) EST AM EST Yuan Webber MD POINT OF CARE TEST ORDERABLE S Performing Organization Address City/[facility]/[place] [address] POCT Glucose (07/11/2017 4:22 AM EST) P athologist Signature POC Glucose 151 65 - 199 [place] mg/dL [facility] Comment: Supplemental ranges: <140 mg/dL before meals <180 mg/dL all other times of the day Specimen Anatomical Collection Method Collection Time Receive d Time (Source) Location / / Volume Laterality Blood specimen 07/11/2017 4:22 AM 017 4:22 (specimen) EST AM EST Yuan Webber MD POINT OF CARE TEST ORDERABLE S Performing Organization Address City/[facility]/[place] [address] Potassium (07/11/2017 2:20 AM EST) athologist Signature Potassium 4.5 3.5 - 5.0 [facility] mmol/L [facility] Comment: [...] Webber MD CHEMISTRY ORDERABLES Performing Organization Address City/[facility]/[place] [address] POCT Glucose (07/11/2017 12:17 AM EST) athologist Signature POC Glucose 162 65 - 199 [facility]dL [facility] Comment: Supplemental ranges: <140 mg/dL before meals <180 mg/dL all other times of the day Specimen Anatomical Collection Method Collection Time Receive d Time (Source) Location / / Volume Laterality Blood specimen 07/11/2017 12:17 7 (specimen) AM EST 12:17 AM EST Yuan Webber MD POINT OF CARE TEST ORDERABLE S Performing Organization Address City/[facility]/ZIP Code Phon e Number [address] POCT Glucose (07/10/2017 8:47 PM EST) athologist Signature POC Glucose 191 65 - 199 [facility] Comment: Supplemental [...] Address City/State/ZIP Code Phon e Number [address] POCT Glucose (07/10/2017 4:06 PM EST) athologist Signature POC Glucose 131 65 - 199 [place] [facility] mg/dL [facility] Comment: Supplemental [...] Address City/State/[place] [address] POCT Glucose (07/10/2017 3:08 PM EST) athologist Signature POC Glucose 151 65 - 199 [place] mg/dL [facility] Comment: Supplemental [...] Address City/State/[place] [address] POCT Glucose (07/10/2017 2:25 PM EST) athologist Signature POC Glucose 146 65 - 199 [facility]dL [facility] Comment: Supplemental [...] Address City/State/ZIP Code Phon e Number [address] POCT Glucose (07/10/2017 1:23 PM EST) P athologist Signature POC Glucose 166 65 - 199 [place] [facility] mg/dL [facility] Comment: Supplemental ranges: <140 mg/dL before meals <180 mg/dL all other times of the day Specimen Anatomical Collection Method Collection Time Receive d Time (Source) Location / / Volume Laterality Blood specimen 07/10/2017 1:23 PM 017 1:23 (specimen) EST PM EST Yuan Webber MD POINT OF CARE TEST ORDERABLE S Performing Organization Address City/[facility]/ZIP Code Phon e Number [address] POCT Glucose (07/10/2017 11:52 AM EST) P athologist Signature POC Glucose 157 65 - 199 [place] mg/dL [facility] Comment: Supplemental [...] Address City/State/ZIP Code Phon e Number [address] POCT Glucose (07/10/2017 11:01 AM EST) P athologist Signature POC Glucose 158 65 - 199 [place] mg/dL [facility] Comment: Supplemental [...] Address City/State/ZIP Code Phon e Number [address] POCT Glucose (07/10/2017 9:54 AM EST) P athologist Signature POC Glucose 160 65 - 199 [place] mg/dL [facility] Comment: Supplemental [...] Address City/State/ZIP Code Phon e Number [address] POCT Glucose (07/10/2017 8:58 AM EST) athologist Signature POC Glucose 183 65 - 199 [place] mg/dL [facility] Comment: Supplemental [...] Address City/State/[place] [address] POCT Glucose (07/10/2017 8:01 AM EST) P athologist Signature POC Glucose 173 65 - 199 [facility] mg/dL [facility] Comment: Supplemental [...] Address City/State/ZIP Code Phon e Number [address] POCT Glucose (07/10/2017 7:05 AM EST) athologist Signature POC Glucose 166 65 - 199 [place] mg/dL [facility] Comment: Supplemental [...] Address City/State/ZIP Code Phon e Number [address] POCT Glucose (07/10/2017 6:00 AM EST) athologist Signature POC Glucose 162 65 - 199 [facility] Comment: Supplemental [...] Address City/State/ZIP Code Phon e Number [address] (ABNORMAL) Differential, Automated (07/10/2017 4:28 AM EST) [facility] gist Method Time Signature Neutrophils % 87.9 % [facility] Neutr Abs (ANC) 10.70 (H) 1.70 - [facility] 6.10 [facility] x10(3)/[facility] L LABORATORY Lymphocytes % 3.9 % [facility] Lymphocytes Abs 0.5 (L) 0.9 - 3.2 [facility] x10(3)/[facility] LABORATORY Monocytes % 7.0 % [facility] Monocyte Abs 0.8 0.3 - 0.9 [facility] x10(3)/[facility] LABORATORY Eosinophils % 0.3 % [facility] Eosinophils Abs 0.0 0.0 - 0.4 [facility] x10(3)/[facility] LABORATORY Basophils % 0.2 % [facility] Basophils Abs 0.0 0.0 - 0.1 [facility] x10(3)/[facility] [...] Abs 0.08 (H) 0.00 - 0.04 x10(3)/[facility] LABORATORY Specimen Anatomical Collection Method Collection Time Receive d Time (Source) Location / / Volume Laterality Blood specimen 07/10/2017 4:28 AM 017 4:36 (specimen) EST AM EST Resulting Agency Comment Spec In Lab Yuan Webber MD HEMATOLOGY ORDERABLES Performing Organization Address City/State/[place] [address] (ABNORMAL) Hemogram (07/10/2017 4:28 AM EST) Analysis Performed At Patho logist Time Signature WBC 12.2 (H) 4.0 - 9.5 [facility] x10(3)/[facility] LABORATORY RBC 3.31 (L) 4.58 - [facility] 5.54 [facility] x10(6)/[facility] LABORATORY Hemoglobin 9.8 (L) 13.7 - [facility] 16.5 gm/dL [facility] Hematocrit 30.0 (L) 40.5 - [facility] 48.5 % [facility] MCV 90.6 82.9 - [facility]1 fL [facility] MCH 29.6 27.5 - [facility] 32.1 pg [facility] MCHC 32.7 32.0 - [facility] 35.7 gm/dL [facility] Platelets 135 (L) 145 - 357 [facility] x10(3)/[facility] LABORATORY RDWSD 50.8 (H) 36.0 - [facility] 45.0 [facility] LABORATORY RDWCV 15.4 (H) 11.4 - [facility] 13.8 % [facility] MPV 10.0 7.6 - 12.9 [facility] LABORATORY nRBC % Auto 0.0 % [facility] nRBC Abs Auto 0.000 0.000 - [facility] 0.000 [facility] x10(3)/[facility] LABORATORY Specimen Anatomical Collection Method Collection Time Receive d Time (Source) Location / / Volume Laterality Blood specimen 07/10/2017 4:28 AM 017 4:36 (specimen) EST AM EST Resulting Agency Comment Spec In Lab Yuan Webber MD HEMATOLOGY ORDERABLES Performing Organization Address City/State/[place] [address] (ABNORMAL) Basic Metabolic Panel (non-fasting) (07/10/2017 4:28 AM EST) athologist Signature Glucose Lvl 178 65 - 199 [facility] mg/dL [facility] Comment: [...] Calcium 7.4 (L) 8.5 - 10.5 mg/dL [facility] Estimated GFR 60 >=60 [facility] Comment: The reported eGFR should be multiplied b y 1.2 for patients. The MDRD is not an appropriate measure o f renal function for patients with body mass extremes or in patients with acute kidney failure. http://[employer]/DHnkdep http://[employer]/DHMCnkf Specimen Anatomical Collection Method Collection Time Receive d Time (Source) Location / / Volume Laterality Blood specimen 07/10/2017 4:28 AM 017 4:36 (specimen) EST AM EST Resulting Agency Comment Spec In Lab Yuan Webber MD CHEMISTRY ORDERABLES Performing Organization Address City/[facility]/ZIP Code Phon e Number [address] POCT Glucose (07/10/2017 4:26 AM EST) P athologist Signature POC Glucose 176 65 - 199 [facility] Comment: Supplemental [...] Address City/State/[place] [address] (ABNORMAL) POCT Glucose (07/10/2017 3:06 AM EST) P athologist Signature POC Glucose 204 (H) 65 - 199 [facility] Comment: Supplemental ranges: <140 mg/dL before meals <180 mg/dL all other times of the day Specimen Anatomical Collection Method Collection Time Receive d Time (Source) Location / / Volume Laterality Blood specimen 07/10/2017 3:06 AM 12/16/2 017 3:06 (specimen) EST AM EST Yuan Webber MD POINT OF CARE TEST ORDERABLE S Performing Organization Address City/[facility]/ZIP Code Phon e Number [address] (ABNORMAL) POCT Glucose (07/10/2017 2:10 AM EST) P athologist Signature POC Glucose 203 (H) 65 - 199 [place] mg/dL [facility] Comment: Supplemental ranges: <140 mg/dL before meals <180 mg/dL all other times of the day Specimen Anatomical Collection Method Collection Time Receive d Time (Source) Location / / Volume Laterality Blood specimen 07/10/2017 2:10 AM 017 2:10 (specimen) EST AM EST Yuan Webber MD POINT OF CARE TEST ORDERABLE S Performing Organization Address City/[facility]/[place] [address] POCT Glucose (07/10/2017 1:09 AM EST) P athologist Signature POC Glucose 196 65 - 199 [place] mg/dL [facility] Comment: Supplemental [...] Address City/State/[place] [address] POCT Glucose (07/10/2017 12:10 AM EST) P athologist Signature POC Glucose 173 65 - 199 [place] mg/dL [facility] Comment: Supplemental [...] Address City/State/ZIP Code Phon e Number [address] POCT Glucose (07/09/2017 11:01 PM EST) P athologist Signature POC Glucose 140 65 - 199 [place] mg/dL [facility] Comment: Supplemental ranges: <140 mg/dL before meals <180 mg/dL all other times of the day Specimen Anatomical Collection Method Collection Time Receive d Time (Source) Location / / Volume Laterality Blood specimen 07/09/2017 11:01 7 (specimen) PM EST 11:01 PM EST Yuan Webber MD POINT OF CARE TEST ORDERABLE S Performing Organization Address City/[facility]/ZIP Code Phon e Number [address] POCT Glucose (07/09/2017 10:05 PM EST) athologist Signature POC Glucose 144 65 - 199 [place] mg/dL [facility] Comment: Supplemental [...] Address City/State/ZIP Code Phon e Number [address] POCT Glucose (07/09/2017 9:31 PM EST) P athologist Signature POC Glucose 121 65 - 199 [place] mg/dL [facility] Comment: Supplemental [...] Address City/State/ZIP Code Phon e Number [address] POCT Glucose (07/09/2017 9:03 PM EST) athologist Signature POC Glucose 98 65 - 199 [place] mg/dL [facility] Comment: Supplemental [...] Address City/State/ZIP Code Phon e Number [address] POCT Glucose (07/09/2017 8:09 PM EST) athologist Signature POC Glucose 117 65 - 199 [place] mg/dL [facility] Comment: Supplemental [...] Address City/State/ZIP Code Phon e Number [address] POCT Glucose (07/09/2017 5:40 PM EST) athologist Signature POC Glucose 155 65 - 199 [facility] mg/dL [facility] Comment: Supplemental ranges: <140 mg/dL before meals <180 mg/dL all other times of the day Specimen Anatomical Collection Method Collection Time Receive d Time (Source) Location / / Volume Laterality Blood specimen 07/09/2017 5:40 PM 017 5:40 (specimen) EST PM EST Yuan Webber MD POINT OF CARE TEST ORDERABLE S Performing Organization Address City/[facility]/ZIP Code Phon e Number [address] POCT Glucose (07/09/2017 4:24 PM EST) athologist Signature POC Glucose 164 65 - 199 [place] mg/dL [facility] Comment: Supplemental ranges: <140 mg/dL before meals <180 mg/dL all other times of the day Specimen Anatomical Collection Method Collection Time Receive d Time (Source) Location / / Volume Laterality Blood specimen 07/09/2017 4:24 PM 017 4:24 (specimen) EST PM EST Yuan Webber MD POINT OF CARE TEST ORDERABLE S Performing Organization Address City/[facility]/ZIP Code Phon e Number [address] POCT Glucose (07/09/2017 3:19 PM EST) athologist Signature POC Glucose 166 65 - 199 [place] mg/dL [facility] Comment: Supplemental ranges: <140 mg/dL before meals <180 mg/dL all other times of the day Specimen Anatomical Collection Method Collection Time Receive d Time (Source) Location / / Volume Laterality Blood specimen 07/09/2017 3:19 PM 017 3:19 (specimen) EST PM EST Yuan Webber MD POINT OF CARE TEST ORDERABLE S Performing Organization Address City/[facility]/ZIP Code Phon [place] [address] POCT Glucose (07/09/2017 2:26 PM EST) athologist Signature POC Glucose 179 65 - 199 [place] mg/dL [facility] Comment: Supplemental [...] Address City/State/[place] [address] (ABNORMAL) POCT Glucose (07/09/2017 1:29 PM EST) P athologist Signature POC Glucose 210 (H) 65 - 199 [place] mg/dL [facility] Comment: Supplemental [...] Address City/State/[place] [address] POCT Glucose (07/09/2017 12:20 PM EST) athologist Signature POC Glucose 172 65 - 199 [place] [facility] mg/dL [facility] Comment: [...] Organization Address City/State/[place] [address] POCT Glucose (07/09/2017 11:24 AM EST) athologist Signature POC Glucose 156 65 - 199 [place] mg/dL [facility] Comment: Supplemental [...] Code Phon e Number [facility] [address] POCT Glucose (07/09/2017 11:11 AM EST) athologist Signature POC Glucose 172 65 - 199 [place] mg/dL [facility] Comment: Supplemental ranges: <140 mg/dL before meals <180 mg/dL all other times of the day Specimen Anatomical Collection Method Collection Time Receive d Time (Source) Location / / Volume Laterality Blood specimen 07/09/2017 11:11 7 (specimen) AM EST 11:11 AM EST Yuna Webber MD POINT OF CARE TEST ORDERABLE S Performing Organization Address City/State/ZIP Code Phon e Number [address] POCT Glucose (07/09/2017 10:08 AM EST) athologist Signature POC Glucose 176 65 - 199 [facility] mg/dL [facility] Comment: Supplemental [...] Address City/State/[place] [address] POCT Glucose (07/09/2017 8:02 AM EST) athologist Signature POC Glucose 178 65 - 199 [place] mg/dL [facility] Comment: Supplemental [...] Address City/State/[place] [address] (ABNORMAL) BLOOD GAS 2 ARTERIAL (07/09/2017 5:37 AM EST) Analysis Performed At Patho logist Time Signature pH Art 7.36 7.35 - [facility] 7.45 [facility] pCO2 Art 38 35 - 45 [facility] mmHg [facility] pO2 Art 79 (L) 85 - 104 [facility] LABORATORY HCO3 Art 20.9 20.0 - [facility] 26.0 [facility] mmol/L [facility] LABORATORY BE Art -4.6 (L) -3.0 - 3.0 [facility] mmol/L [facility] Hgb Blood Gas 10.5 (L) 13.7 - [facility] 16.5 gm/dL [facility] O2HB Art 93.8 (L) 94.0 - [facility] 97.0 % [facility] COHB Art 0.3 % [facility] FIO2 Art 40 % [facility] PF Ratio Art 198 [facility] Specimen Anatomical Collection Method Collection Time Receive d Time (Source) Location / / Volume Laterality Blood specimen 07/09/2017 5:37 AM 017 5:37 (specimen) EST AM EST Yuan Webber MD CHEMISTRY ORDERABLES Performing Organization Address City/State/[place] [address] POCT Glucose (07/09/2017 3:27 AM EST) athologist Signature POC Glucose 192 65 - 199 [facility] Comment: Supplemental [...] Address City/State/[place] [address] (ABNORMAL) Basic Metabolic Panel (non-fasting) (07/09/2017 2:30 AM EST) athologist Signature Glucose Lvl 179 65 - 199 [facility] mg[facility]dL [facility] Comment: Diabetes: >=200 mg/dL plus symp toms BUN 17 10 - 20 mg/dL [facility] Creatinine 1.34 0.80 - 1.50 mg/dL [facility] Sodium 144 135 - 145 mmol/L [facility] Potassium Not Perf 3.5 - 5.0 mmol/L [facility] Comment: Duplicate order Please note: [...] Calcium 7.1 (L) 8.5 - 10.5 mg/dL [facility] Comment: result rechecked-[id number] Estimated GFR 53 (L) >=60 [facility] Comment: The reported eGFR should be multiplied b y 1.2 for patients. The MDRD is not an appropriate measure o f renal function for patients with body mass extremes or in patients with acute kidney failure. http://[employer]/DHnkdep http://[employer]/DHMCnkf Specimen Anatomical Collection Method Collection Time Receive d Time (Source) Location / / Volume Laterality Blood specimen Venous Draw / 07/09/2017 2:30 AM 2016 2:42 (specimen) Unknown EST AM EST Resulting Agency Comment Spec In Lab Yuan Webber MD CHEMISTRY ORDERABLES Performing Organization Address City/[facility] [place] [address] (ABNORMAL) Potassium (07/09/2017 2:30 AM EST) P athologist Signature Potassium 5.1 (H) 3.5 - 5.0 [facility] mmol/L [facility] Comment: [...] Wbeber MD CHEMISTRY ORDERABLES Performing Organization Address City/[facility] [place] [address] (ABNORMAL) Hemogram (07/09/2017 2:30 AM EST) Analysis Performed At Patho logist Time Signature WBC 12.5 (H) 4.0 - 9.5 [place] x10(3)/[facility] LABORATORY RBC 3.38 (L) 4.58 - [place] 5.54 [facility] x10(6)/[facility] LABORATORY Hemoglobin 10.1 (L) 13.7 - [place] 16.5 gm/dL [facility] Hematocrit 30.3 (L) 40.5 - [place] 48.5 % [facility] MCV 89.6 82.9 - [facility] 93.1 [facility] LABORATORY MCH 29.9 27.5 - [place] 32.1 pg [facility] MCHC 33.3 32.0 - [place] 35.7 gm/dL [facility] Platelets 127 (L) 145 - 357 [facility] x10(3)/[facility] LABORATORY RDWSD 49.3 (H) 36.0 - [facility] 45.0 [facility] LABORATORY RDWCV 15.2 (H) 11.4 - [place] 13.8 % [facility] MPV 9.9 7.6 - 12.9 [place] [facility] [facility] LABORATORY nRBC % Auto 0.0 % [facility] nRBC Abs Auto 0.000 0.000 - [place] 0.000 [facility] x10(3)/[facility]ATORY Specimen Anatomical Collection Method Collection Time Receive d Time (Source) Location / / Volume Laterality Blood specimen 07/09/2017 2:30 AM 017 2:41 (specimen) EST AM EST Resulting Agency Comment Spec In Lab Yuan Webber MD HEMATOLOGY ORDERABLES Performing Organization Address City/State/[place] [address] POCT Glucose (07/09/2017 2:10 AM EST) P athologist Signature POC Glucose 169 65 - 199 [facility] mg/dL [facility] Comment: [...] Address City/State/[place] [address] POCT Glucose (07/09/2017 1:01 AM EST) P athologist Signature POC Glucose 173 65 - 199 [place] mg/dL [facility] Comment: Supplemental ranges: <140 mg/dL before meals <180 mg/dL all other times of the day Specimen Anatomical Collection Method Collection Time Receive d Time (Source) Location / / Volume Laterality Blood specimen 07/09/2017 1:01 AM 017 1:01 (specimen) EST AM EST Yuan Webber MD POINT OF CARE TEST ORDERABLE S Performing Organization Address City/[facility]/[place] [address] Blood culture (07/09/2017 12:40 AM EST) Patholo gist Method Time Signature Blood Culture No growth [place] DAVIS at 5 days. [facility] Specimen Anatomical Collection Method Collection Time Receive d Time (Source) Location / / Volume Laterality Blood specimen STRUCTURE OF RIGHT 07/09/2017 12:40 3:58 (specimen) UPPER LIMB / AM EST AM EST Unknown Resulting Agency Comment Spec In Lab Yuan Webber MD MICROBIOLOGY - BLOOD ORDERAB LES Performing Organization Address City/[facility]/[place] [address] Blood culture (07/09/2017 12:30 AM EST) Patholo gist Method Time Signature Blood Culture No growth [place] DAVIS at 5 days. [facility] Specimen Anatomical Collection Method Collection Time Receive d Time (Source) Location / / Volume Laterality Blood specimen STRUCTURE OF LEFT 07/09/2017 12:30 06/25 3:59 (specimen) UPPER LIMB / AM EST AM EST Unknown Resulting Agency Comment Spec In Lab Yuan Webber MD MICROBIOLOGY - BLOOD ORDERAB LES Performing Organization Address City/[facility]/[place] [address] (ABNORMAL) Urinalysis Microscopic Exam (07/09/2017 12:05 AM EST) Analysis Performed At Patho logist Time Signature RBC UA 32 (H) 0 - 3 /HPF [facility] WBC UA 5 (H) 0 - 3 /HPF [facility] Squam Epith UA <1 <=4 /HPF [facility] Hyaline Cast 17 (H) 0 - 2 /[facility] Gran Cast UA 1 (H) <=0 /LPF [facility] Uric Ac Bianca Rare (A) None /HPF [facility] Specimen (Source) Anatomical Collection Method Collection Time Re ceived Time Location / / Volume Laterality Urine specimen 07/09/2017 12:05 7 obtained via AM EST 12:39 AM EST indwelling urinary catheter (specimen) Resulting Agency Comment Spec In Lab Yuan Webber MD URINE ORDERABLES Performing Organization Address City/State/[place] [address] (ABNORMAL) Urinalysis with reflex Culture (07/09/2017 12:05 AM EST) Patholo gist Method Time Signature Glucose UA Negative Negative [facility] mg/dL [facility] Protein UA 30 (A) Negative [facility] mg/dL [facility] Bilirubin UA Negative Negative [facility] mg/dL [facility] Comment: [...] [facility] Nitrite UA Negative Negative [facility] Leukocytes UA Negative Negative [facility] LABORATORY Appearance UA Hazy (A) Clear [place] [facility] Spec [place] UA 1.025 1.002 - 1.030 [facility] Color UA Yellow Yellow [facility] Culture Reflexed No [facility] Specimen (Source) Anatomical Collection Method Collection Time Re ceived Time Location / / Volume Laterality Urine specimen 07/09/2017 12:05 7 obtained via AM EST 12:39 AM EST indwelling urinary catheter (specimen) Resulting Agency Comment Spec In Lab Yuan Webber MD URINE ORDERABLES Performing Organization Address City/State/ZIP Code Phon e Number [address] POCT Glucose (07/08/2017 11:01 PM EST) athologist Signature POC Glucose 191 65 - 199 [facility]dL [facility] Comment: Supplemental ranges: <140 mg/dL before meals <180 mg/dL all other times of the day Specimen Anatomical Collection Method Collection Time Receive d Time (Source) Location / / Volume Laterality Blood specimen 07/08/2017 11:01 7 (specimen) PM EST 11:01 PM EST Yuan Webber MD POINT OF CARE TEST ORDERABLE S Performing Organization Address City/[facility]/ZIP Code Phon e Number [address] POCT Glucose (07/08/2017 10:04 PM EST) athologist Signature POC Glucose 198 65 - 199 [facility]dL [facility] Comment: Supplemental [...] Address City/State/[place] [address] Prepare Albumin 5% in [...] Address City/State/ZIP Code Phon e Number [address] POCT Glucose (07/08/2017 8:28 PM EST) athologist Signature POC Glucose 195 65 - 199 [facility] mg[facility]dL [facility] Comment: Supplemental [...] Address City/State/ZIP Code Phon e Number [address] (ABNORMAL) POCT Glucose (07/08/2017 7:13 PM EST) athologist Signature POC Glucose 220 (H) 65 - 199 [facility] mg/dL [facility] Comment: Supplemental [...] Address City/State/ZIP Code Phon e Number [address] POCT Glucose (07/08/2017 5:04 PM EST) P athologist Signature POC Glucose 147 65 - 199 [facility] mg/dL [facility] Comment: [...] Organization Address City/State/[place] [address] (ABNORMAL) BLOOD GAS 2 ARTERIAL (07/08/2017 4:13 PM EST) Analysis Performed At Patho logist Time Signature pH Art 7.38 7.35 - [facility] 7.45 [facility] pCO2 Art 36 35 - 45 [facility] mmHg [facility] pO2 Art 91 85 - 104 [facility] LABORATORY HCO3 Art 20.9 20.0 - [facility] 26.0 [facility] mmol/L [facility] LABOR[facility] BE Art -4.2 (L) -3.0 - 3.0 [facility] mmol/L [facility] Hgb Blood Gas 11.7 (L) 13.7 - [facility] 16.5 gm/dL [facility] O2HB Art 95.1 94.0 - [facility] 97.0 % [facility] COHB Art 0.6 % [facility] FIO2 Art 40 % [facility] PF Ratio Art 228 [facility] Specimen Anatomical Collection Method Collection Time Receive d Time (Source) Location / / Volume Laterality Blood specimen 07/08/2017 4:13 PM 017 4:13 (specimen) EST PM EST Yuan Webber MD CHEMISTRY ORDERABLES Performing Organization Address City/[facility]/ZIP [facility] Phon e Number [address] POCT Glucose (07/08/2017 4:01 PM EST) athologist Signature POC Glucose 148 65 - 199 [facility] Comment: Supplemental ranges: <140 mg/dL before meals <180 mg/dL all other times of the day Specimen Anatomical Collection Method Collection Time Receive d Time (Source) Location / / Volume Laterality Blood specimen 07/08/2017 4:01 PM 017 4:01 (specimen) EST PM EST Yuan Webber MD POINT OF CARE TEST ORDERABLE S Performing Organization Address City/[facility]/[place] [address] POCT Glucose (07/08/2017 3:21 PM EST) P athologist Signature POC Glucose 118 65 - 199 [facility] mg[facility]dL [facility] Comment: Supplemental [...] Address City/State/ZIP Code Phon e Number [address] POCT Glucose (07/08/2017 2:01 PM EST) P athologist Signature POC Glucose 129 65 - 199 [place] mg/dL [facility] Comment: Supplemental ranges: <140 mg/dL before meals <180 mg/dL all other times of the day Specimen Anatomical Collection Method Collection Time Receive d Time (Source) Location / / Volume Laterality Blood specimen 07/08/2017 2:01 PM 017 2:01 (specimen) EST PM EST Yuan Webber MD POINT OF CARE TEST ORDERABLE S Performing Organization Address City/[facility]/ZIP Code Phon e Number [address] POCT Glucose (07/08/2017 11:53 AM EST) athologist Signature POC Glucose 156 65 - 199 [place] mg/dL [facility] Comment: Supplemental [...] Address City/State/ZIP Code Phon e Number [address] POCT Glucose (07/08/2017 11:04 AM EST) athologist Signature POC Glucose 181 65 - 199 [place] mg/dL [facility] Comment: Supplemental [...] Address City/State/[place] [address] (ABNORMAL) POCT Glucose (07/08/2017 9:24 AM EST) athologist Signature POC Glucose 203 (H) 65 - 199 [facility] mg/dL [facility] Comment: Supplemental ranges: <140 mg/dL before meals <180 mg/dL all other times of the day Specimen Anatomical Collection Method Collection Time Receive d Time (Source) Location / / Volume Laterality Blood specimen 07/08/2017 9:24 AM 017 9:24 (specimen) EST AM EST Yuan Webber MD POINT OF CARE TEST ORDERABLE S Performing Organization Address City/[facility]/[place] [address] APTT (07/08/2017 8:40 AM EST) athologist Signature PTT 33 25 - 35 sec [facility] Comment: The recommended therapeutic range for fu ll dose, unfractionated heparin at [facility] is 80 ? 114 seconds. The use [...] Webber MD HEMATOLOGY ORDERABLES Performing Organization Address City/[facility]/[place] [address] (ABNORMAL) Prothrombin Time (07/08/2017 [...] Address City/State/ZIP Code Phon e Number [place] [address] (ABNORMAL) POCT Glucose (07/08/2017 7:38 AM EST) P athologist Signature POC Glucose 232 (H) 65 - 199 [facility] mg[facility]dL [facility] Comment: Supplemental ranges: <140 mg/dL before meals <180 mg/dL all other times of the day Specimen Anatomical Collection Method Collection Time Receive d Time (Source) Location / / Volume Laterality Blood specimen 07/08/2017 7:38 AM 017 7:38 (specimen) EST AM EST Yuan Webber MD POINT OF CARE TEST ORDERABLE S Performing Organization Address City/[facility]/[place] [address] (ABNORMAL) POCT Glucose (07/08/2017 7:07 AM EST) athologist Signature POC Glucose 234 (H) 65 - 199 [facility] mg/dL [facility] Comment: Supplemental ranges: <140 mg/dL before meals <180 mg/dL all other times of the day Specimen Anatomical Collection Method Collection Time Receive d Time (Source) Location / / Volume Laterality Blood specimen 07/08/2017 7:07 AM 017 7:07 (specimen) EST AM EST Yuan Webber MD POINT OF CARE TEST ORDERABLE S Performing Organization Address City/[facility]/[place] [address] (ABNORMAL) POCT Glucose (07/08/2017 6:04 AM EST) athologist Signature POC Glucose 225 (H) 65 - 199 [facility] mg/dL [facility] Comment: Supplemental ranges: <140 mg/dL before meals <180 mg/dL all other times of the day Specimen Anatomical Collection Method Collection Time Receive d Time (Source) Location / / Volume Laterality Blood specimen 07/08/2017 6:04 AM 017 6:04 (specimen) EST AM EST uYan Webber MD POINT OF CARE TEST ORDERABLE S Performing Organization Address City/State/[place] [address] (ABNORMAL) POCT Glucose (07/08/2017 5:31 AM EST) athologist Signature POC Glucose 216 (H) 65 - 199 [facility] mg/dL [facility] Comment: Supplemental [...] Address City/State/[place] [address] (ABNORMAL) POCT Glucose (07/08/2017 4:52 AM EST) athologist Signature POC Glucose 257 (H) 65 - 199 [facility]dL [facility] Comment: Supplemental [...] Address City/State/[place] [address] (ABNORMAL) BLOOD GAS 2 ARTERIAL (07/08/2017 4:04 AM EST) Analysis Performed At Patho logist Time Signature pH Art 7.30 (L) 7.35 - [facility] 7.45 [facility] pCO2 Art 41 35 - 45 [facility] mmHg [facility] pO2 Art 83 (L) 85 - 104 [facility] LABORATORY HCO3 Art 19.6 (L) 20.0 - [facility] 26.0 [facility] mmol/L [facility] LABORATORY BE Art -6.8 (L) -3.0 - 3.0 [facility] mmol/L [facility] Hgb Blood Gas 12.2 (L) 13.7 - [facility] 16.5 gm/dL [facility] O2HB Art 93.5 (L) 94.0 - [facility] 97.0 % [facility] COHB Art 0.4 % [facility] [...] LABORATORY Comment: Noted by electrical and instrument mechanic. FIO2 Art 40 % [facility] LABORATORY PF Ratio Art 208 [facility] LABORATORY Specimen Anatomical Collection Method Collection Time Receive d Time (Source) Location / / Volume Laterality Blood specimen 07/08/2017 4:04 AM 017 4:04 (specimen) EST AM EST Daphne Shahid MD CHEMISTRY ORDERABLES Performing Organization Address City/State/ZIP Code Phon e Number [address] Scan, Peripheral Blood (07/08/2017 [...] Webber MD HEMATOLOGY ORDERABLES Performing Organization Address City/[facility]/ZIP Code Phon e Number [address] (ABNORMAL) Differential, Automated (07/08/2017 4:00 AM EST) Patholo gist Method Time Signature Neutrophils % 85.4 % [facility] LABORATORY Neutr Abs (ANC) 16.07 (H) 1.70 - [facility] 6.10 [facility] x10(3)/[facility] L LABORATORY Lymphocytes % 3.5 % [facility] Lymphocytes Abs 0.6 (L) 0.9 - 3.2 [facility] x10(3)/[facility] LABORATORY Monocytes % 10.4 % [facility] Monocyte Abs 2.0 (H) 0.3 - 0.9 [facility] x10(3)/[facility] LABORATORY Eosinophils % 0.0 % [facility] Eosinophils Abs 0.0 0.0 - 0.4 [facility] x10(3)/[facility] LABORATORY Basophils % 0.1 % [facility] Basophils Abs 0.0 0.0 - 0.1 [facility] x10(3)/[facility] [...] Abs 0.12 (H) 0.00 - 0.04 x10(3)/[facility] LABORATORY Specimen Anatomical Collection Method Collection Time Receive d Time (Source) Location / / Volume Laterality Blood specimen 07/08/2017 4:00 AM 017 4:09 (specimen) EST AM EST Resulting Agency Comment Spec In Lab Yuan Webber MD HEMATOLOGY ORDERABLES Performing Organization Address City/State/ZIP Code Phon e Number [place] [id number] (ABNORMAL) Hemogram (07/08/2017 4:00 AM EST) Analysis Performed At Patho logist Time Signature WBC 18.8 (H) 4.0 - 9.5 [facility] x10(3)/[facility] LABORATORY RBC 4.00 (L) 4.58 - [facility] Diagonal View 5.54 [facility] x10(6)/[facility] LABORATORY Hemoglobin 11.9 (L) 13.7 - [facility] 16.5 gm/dL [facility] Hematocrit 35.9 (L) 40.5 - [facility] SU 48.5 % [facility] MCV 89.8 82.9 - [facility] SU 93.1 [facility] LABORATORY MCH 29.8 27.5 - [place] [facility] 32.1 pg [facility] MCHC 33.1 32.0 - [facility] 35.7 gm/dL [facility] Platelets 232 145 - 357 [facility] x10(3)/[facility] LABORATORY RDWSD 47.6 (H) 36.0 - [facility] SU 45.0 [facility] RDWCV 14.5 (H) 11.4 - [facility] SU 13.8 % [facility] MPV 9.5 7.6 - 12.9 [facility] LABORATORY nRBC % Auto 0.0 % [facility] nRBC Abs Auto 0.000 0.000 - [facility] 0.000 [facility] x10(3)/[facility] LABORATORY Specimen Anatomical Collection Method Collection Time Receive d Time (Source) Location / / Volume Laterality Blood specimen 07/08/2017 4:00 AM 017 4:09 (specimen) EST AM EST Resulting Agency Comment Spec In Lab Yuan Webber MD HEMATOLOGY ORDERABLES Performing Organization Address City/[facility]/[place] [address] (ABNORMAL) Electrolytes panel (07/08/2017 4:00 AM EST) athologist Signature Sodium 139 135 - 145 [facility] mmol/L [facility] Potassium 4.7 3.5 - 5.0 [facility] mmol/L [facility] Comment: result rechecked-K Please note: [...] Webber MD CHEMISTRY ORDERABLES Performing Organization Address City/[facility]/[place] [address] (ABNORMAL) Cardiac Enzymes (LEB/CGP) (07/08/2017 4:00 AM EST) P athologist Signature Troponin-T 1.88 (H) 0.00 - [facility] 0.00 ng/mL [facility] [...] sample may be indicated. Reference: Third [place] Definition of Myocardial Infarction. Journal of the [...] Organization Address City/State/[place] [address] (ABNORMAL) Glucose, fasting (07/08/2017 4:00 AM EST) athologist Signature Glucose 287 (H) 65 - 99 [facility] Fasting mg/dL [facility] [...] CHEMISTRY ORDERABLES Performing Organization Address [facility] [place] [address] (ABNORMAL) Creatinine (07/08/2017 4:00 AM EST) Analysis Performed At Patho logist Time Signature Creatinine 1.55 (H) 0.80 - [facility] 1.50 mg/dL [facility] Estimated GFR 44 (L) >=60 [facility] Comment: The reported eGFR should be multiplied b y 1.2 for patients. The MDRD is not an appropriate measure o f renal function for patients with body mass extremes or in patients with acute kidney failure. [email or web address] [email or web address] Specimen Anatomical Collection Method Collection Time Receive d Time (Source) Location / / Volume Laterality Blood specimen 07/08/2017 4:00 AM 017 4:09 (specimen) EST AM EST Resulting Agency Comment Spec In Lab Yuan Webber MD CHEMISTRY ORDERABLES Performing Organization Address City/[facility]/ZIP Code Phon e Number [address] BUN (07/08/2017 4:00 AM EST) P athologist Signature BUN 16 10 - 20 [facility]dL [facility] Specimen Anatomical Collection Method Collection Time Receive d Time (Source) Location / / Volume Laterality Blood specimen 07/08/2017 4:00 AM 017 4:09 (specimen) EST AM EST Resulting Agency Comment Spec In Lab Yuan Webber MD CHEMISTRY ORDERABLES Performing Organization Address City/[facility]/[place] [address] (ABNORMAL) POCT Glucose (07/08/2017 3:00 AM EST) P athologist Signature POC Glucose 273 (H) 65 - 199 [facility] mg/dL [facility] Comment: Supplemental ranges: <140 mg/dL before meals <180 mg/dL all other times of the day Specimen Anatomical Collection Method Collection Time Receive d Time (Source) Location / / Volume Laterality Blood specimen 07/08/2017 3:00 AM 017 3:00 (specimen) EST AM EST Daphne Shahid MD POINT OF CARE TEST ORDERABLE S Performing Organization Address City/[facility]/[place] [address] (ABNORMAL) POCT Glucose (07/08/2017 1:57 AM EST) P athologist Signature POC Glucose 288 (H) 65 - 199 [facility] mg/dL [facility] Comment: Supplemental [...] Address City/State/[place] [address] (ABNORMAL) POCT Glucose (07/08/2017 1:01 AM EST) P athologist Signature POC Glucose 315 (H) 65 - 199 [facility] mg/dL [facility] Comment: Supplemental ranges: <140 mg/dL before meals <180 mg/dL all other times of the day Specimen Anatomical Collection Method Collection Time Receive d Time (Source) Location / / Volume Laterality Blood specimen 07/08/2017 1:01 AM 017 1:01 (specimen) EST AM EST Daphne Shahid MD POINT OF CARE TEST ORDERABLE S Performing Organization Address City/State/[place] [address] (ABNORMAL) BLOOD GAS 2 ARTERIAL (07/08/2017 12:09 AM EST) athologist Signature pH Art 7.26 7.35 - [facility] (Critical) 7.45 [facility] Comment: Noted by electrical and instrument mechanic. pCO2 Art 41 35 - 45 mmHg [...] [facility] COHB Art 0.2 % [facility] [...] LABORATORY Comment: Noted by electrical and instrument mechanic. FIO2 Art 40 % [facility] PF Ratio Art 240 [facility] LABORATORY Specimen Anatomical Collection Method Collection Time Receive d Time (Source) Location / / Volume Laterality Blood specimen Arterial Draw / 07/08/2017 12:09 2016 5:31 (specimen) Unknown AM EST AM EST Resulting Agency Comment Spec In Lab Samy Maldonado MD CHEMISTRY ORDERABLES Performing Organization Address City/[facility]/[place] [address] (ABNORMAL) POCT Glucose (07/07/2017 10:56 PM EST) P athologist Signature POC Glucose 292 (H) 65 - 199 [facility] mg/dL [facility] Comment: [...] Address City/State/[place] [address] (ABNORMAL) BLOOD GAS 2 ARTERIAL (07/07/2017 10:04 PM EST) P athologist Signature pH Art 7.22 7.35 - [facility] (Critical) 7.45 [facility] Comment: Noted by electrical and instrument mechanic. pCO2 Art 42 35 - 45 mmHg [...] [facility] COHB Art 0.7 % [facility] [...] LABORATORY Comment: Noted by electrical and instrument mechanic. FIO2 Art 40 % [facility] PF Ratio Art 235 [facility] Specimen Anatomical Collection Method Collection Time Receive d Time (Source) Location / / Volume Laterality Blood specimen 07/07/2017 10:04 7 (specimen) PM EST 10:04 PM EST Daphne Shahid MD CHEMISTRY ORDERABLES Performing Organization Address City/State/[place] [address] (ABNORMAL) Hemoglobin (07/07/2017 10:00 PM EST) athologist Signature Hemoglobin 12.8 (L) 13.7 - [facility] 16.5 gm/dL [facility] Specimen Anatomical Collection Method Collection Time Receive d Time (Source) Location / / Volume Laterality Blood specimen 07/07/2017 10:00 7 (specimen) PM EST 10:13 PM EST Resulting Agency Comment Spec In Lab Yuan Webber MD HEMATOLOGY ORDERABLES Performing Organization Address City/[facility] [place] [address] (ABNORMAL) Potassium (07/07/2017 10:00 PM EST) athologist [facility] Potassium 3.4 (L) 3.5 - 5.0 [facility]L [facility] Comment: Please [...] CHEMISTRY ORDERABLES Performing Organization Address [facility] [place] [address] (ABNORMAL) POCT Glucose (07/07/2017 8:49 PM EST) athologist [facility] POC Glucose 241 (H) 65 - 199 [facility] mg/dL [facility] Comment: Supplemental ranges: <140 mg/dL before meals <180 mg/dL all other times of the day Specimen Anatomical Collection Method Collection Time Receive d Time (Source) Location / / Volume Laterality Blood specimen 07/07/2017 8:49 PM 017 8:49 (specimen) EST PM EST Daphne Shahid MD POINT OF CARE TEST ORDERABLE S Performing Organization Address City/[facility]/ZIP Code Phon e Number [address] Prepare Albumin 5% in [...] BROWN BLOOD BANK ORDERABLES Performing Organization Address City/[facility]/ZIP Code Phon e Number [address] EKG 12 Lead (07/07/2017 7:17 PM EST) Component Value Ref Range Test Analysis Performed Pathologis t Method Time At Signature Ventricular rate 75 BPM MUSE SYSTEM Atrial Rate 75 BPM MUSE SYSTEM P-R Interval 168 ms MUSE SYSTEM QRS Duration 104 ms MUSE SYSTEM Q-T Interval 462 ms MUSE SYSTEM QTC Calculated 515 ms MUSE SYSTEM (Bezet) Calculated P Malcolm 52 degrees MUSE SYSTEM Calculated R Malcolm -40 degrees MUSE SYSTEM Calculated T Malcolm 39 degrees MUSE SYSTEM INTERPRETATION Normal sinus [...] Webber MD ECG ORDERABLES Performing Organization Address City/[facility]/ZIP Code Phon e Number MUSE SYSTEM XR [...] athologist Signature pH Art 7.21 7.35 - [facility] (Critical) 7.45 [facility] Comment: Noted by electrical and instrument mechanic. pCO2 Art 50 (H) 35 - 45 [...] [facility] COHB Art 0.5 % [facility] [...] LABORATORY Comment: Noted by electrical and instrument mechanic. Please note: Patients with WBC >100,000 may [...] LABORATORY Comment: Noted by electrical and instrument mechanic. FIO2 Art 100 % [facility] PF Ratio Art 238 [facility] Specimen Anatomical Collection Method Collection Time Receive d Time (Source) Location / / Volume Laterality Blood specimen 07/07/2017 6:57 PM 017 6:57 (specimen) EST PM EST Daphne Shahid MD CHEMISTRY ORDERABLES Performing Organization Address City/State/[place] [address] (ABNORMAL) BLOOD GAS 2 ARTERIAL (07/07/2017 5:31 PM EST) athologist Signature pH Art 7.29 7.35 - [facility] (Critical) 7.45 [facility] Comment: Noted by electrical and instrument mechanic. pCO2 Art 48 (H) 35 - 45 [...] [facility] COHB Art 0.3 % [facility] [...] Shahid MD CHEMISTRY ORDERABLES Performing Organization Address City/[facility]/[place] [address] Fibrinogen (07/07/2017 5:30 PM EST) athologist Signature Fibrinogen 224 180 - 510 [facility] mg/dL [facility] Comment: [...] Perez MD HEMATOLOGY ORDERABLES Performing Organization Address City/[facility] Code Phon e Number [address] APTT (07/07/2017 5:30 PM EST) athologist Signature PTT 30 25 - 35 sec [facility] Comment: The recommended therapeutic range for fu ll dose, unfractionated heparin at [facility] is 80 ? 114 seconds. The use [...] Perez MD HEMATOLOGY ORDERABLES Performing Organization Address City/[facility]/ZIP [facility] [place] [address] (ABNORMAL) Prothrombin Time (07/07/2017 5:30 PM EST) athologist Signature PT 19.0 (H) 11.8 - 14.0 [facility] sec [facility] INR 1.6 (H) 0.9 - [...] Organization Address City/State/[place] [address] (ABNORMAL) Hemogram (07/07/2017 5:30 PM EST) athologist Signature WBC 19.6 (H) 4.0 - 9.5 [facility] x10(3)/[facility] LABORATORY RBC 3.08 (L) 4.58 - [facility] 5.54 [facility] x10(6)/[facility] LABORATORY Hemoglobin 9.2 (L) 13.7 - [facility] 16.5 gm/dL [facility] Hematocrit 28.0 (L) 40.5 - [facility] 48.5 % [facility] Comment: This result has been called to MONICA MORAN by DONALD GROSSMAN on 07 07 2017 at 1759, and has been read back. MCV 90.9 82.9 - 93.1 fL [facility]ORAT[facility] MCH 29.9 27.5 - 32.1 pg [facility] MCHC 32.9 32.0 - 35.7 gm/dL [facility] LABORATORY Platelets 155 145 - 357 x10(3)/[facility] LABORATORY RDWSD 46.5 (H) 36.0 - 45.0 fL [facility] RDWCV 14.1 (H) 11.4 - 13.8 % [facility]ORATORY MPV 9.5 7.6 - 12.9 fL [facility] nRBC % Auto 0.0 % [facility] LABORATORY nRBC Abs Auto 0.000 0.000 - 0.000 x10(3)/[facility] LABORATORY Specimen Anatomical Collection Method Collection Time Receive d Time (Source) Location / / Volume Laterality Blood specimen 07/07/2017 5:30 PM 017 5:34 (specimen) EST PM EST Resulting Agency Comment Spec In Lab Yifan Perez MD HEMATOLOGY ORDERABLES Performing Organization Address City/[facility] Phon e Number [address] Prepare Platelets, Apheresis (07/07/2017 5:00 PM EST) athologist Signature Dispensed? Yes [facility] Specimen Anatomical Collection Method Collection Time Receive d Time (Source) Location / / Volume Laterality Blood specimen 07/07/2017 5:00 PM 017 4:58 (specimen) EST PM EST Daphne Shahid MD BLOOD BANK ORDERABLES Performing Organization Address [facility] Phon e Number [address] Platelet count (07/07/2017 4:55 PM EST) athologist Signature Platelets 177 145 - 357 [facility] x10(3)/[facility] LABORATORY Plat Immature 1.5 0.0 - 7.4 [facility] LABORATORY Comment: Limitation of the Immature Platelet Frac tion (IPF)-May be less reliable when the platelet count is less than 92u012/u L due to statistical imprecision. The IPF [...] in a decreased state of production. References: [employer] The Clinical Value of the Immature Platelet Fraction (IPF) in Cell Recovery Document Number [id number] 12/2010 [employer] The Role of the Imm ature Platelet Fraction (IPF) in the Differential Diagnosis of Thrombocytopen ia, Document [id number] V012/04/13 P012/06 Specimen Anatomical Collection Method Collection Time Receive d Time (Source) Location / / Volume Laterality Blood specimen 07/07/2017 4:55 PM 017 5:13 (specimen) EST PM EST Resulting Agency Comment Spec In Lab Daphne Shahid MD HEMATOLOGY ORDERABLES Performing Organization Address City/[facility]/[place] [address] (ABNORMAL) Hemoglobin and Hematocrit, blood (07/07/2017 4:55 PM EST) athologist Signature Hemoglobin 9.1 (L) 13.7 - 16.5 [facility] gm/dL [facility] Comment: [...] Shahid MD HEMATOLOGY ORDERABLES Performing Organization Address City/[facility]/[place] [address] (ABNORMAL) BLOOD GAS 2 ARTERIAL (07/07/2017 4:38 PM EST) Analysis Performed At Patho logist Time Signature pH Art 7.37 7.35 - [facility] 7.45 [facility] pCO2 Art 44 35 - 45 [facility] mmHg [facility] pO2 Art 322 (H) 85 - 104 [facility] mmHg [facility] HCO3 Art 24.9 20.0 - [facility] 26.0 [facility] mmol/L [facility] LABORATORY BE Art -0.4 -3.0 - 3.0 [facility] mmol/L [facility] Hgb Blood Gas 10.1 (L) 13.7 - [facility] 16.5 gm/dL [facility] O2HB Art 98.7 (H) 94.0 - [facility] 97.0 % [facility] COHB Art 0.1 % [facility] LABORATORY [...] LABORATORY Comment: Noted by electrical and instrument mechanic. Note: ??Total bilirubin higher than 20 m [...] Organization Address City/State/[place] [address] (ABNORMAL) BLOOD GAS 2 VENOUS (07/07/2017 4:06 PM EST) Analysis Performed At Patho logist Time Signature pH Cody 7.31 (L) 7.32 - [facility] 7.42 [facility] pCO2 [place] 47 41 - 51 [facility] LABORATORY pO2 [place] 53 (H) 25 - 40 [facility] LABORATORY HCO3 Cody 22.7 mmol/L [facility] BE Cody -3.7 mmol/L [facility] Hgb Blood Gas 10.2 (L) 13.7 - [facility] 16.5 gm/dL [facility] O2HB Cody 81.0 % [facility] [...] LABORATORY Comment: Noted by electrical and instrument mechanic. Note: ??Total bilirubin higher than 20 m g/dL may lead to falsely low ionized calcium. CL Whole Blood 100 98 - 107 mmol/L [facility] Gluc Whole Bld 231 (H) 65 - 199 mg/dL [facility] Comment: Diabetes: >=200 mg/dL plus symp toms Lactate WB 1.1 0.5 - 2.2 mmol/L [facility] BGas Source Venous [facility] Specimen Anatomical Collection Method Collection Time Receive d Time (Source) Location / / Volume Laterality Blood specimen 07/07/2017 4:06 PM 017 4:06 (specimen) EST PM EST Daphne Shahid MD CHEMISTRY ORDERABLES Performing Organization Address City/State/[place] [address] (ABNORMAL) BLOOD GAS 2 ARTERIAL (07/07/2017 4:05 PM EST) Analysis Performed At Patho logist Time Signature pH Art 7.36 7.35 - [facility] 7.45 [facility] pCO2 Art 40 35 - 45 [facility] LABORATORY pO2 Art 282 (H) 85 - 104 [facility] LABORATORY HCO3 Art 22.1 20.0 - [facility] 26.0 [facility] mmol/L [facility] LABORATORY BE Art -3.4 (L) -3.0 - 3.0 [facility] mmol/L [facility] Hgb Blood Gas 10.2 (L) 13.7 - [facility] 16.5 gm/dL [facility] O2HB Art 98.4 (H) 94.0 - [facility] 97.0 % [facility] COHB Art 0.3 % [facility] [...] LABORATORY Comment: Noted by electrical and instrument mechanic. Note: ??Total bilirubin higher than 20 m [...] Organization Address City/State/[place] [address] (ABNORMAL) BLOOD GAS 2 ARTERIAL (07/07/2017 2:29 PM EST) Analysis Performed At Patho logist Time Signature pH Art 7.43 7.35 - [facility] 7.45 [facility] pCO2 Art 36 35 - 45 [facility] mmHg [facility] pO2 Art 221 (H) 85 - 104 [facility] LABORATORY HCO3 Art 23.2 20.0 - [facility] 26.0 [facility] mmol/[facility] LABORATORY BE Art -1.2 -3.0 - 3.0 [facility] mmol/L [facility] Hgb Blood Gas 13.9 13.7 - [facility] 16.5 gm/dL [facility] O2HB Art 97.8 (H) 94.0 - [facility] 97.0 % [facility] COHB Art 1.1 % [facility] [...] Shahid MD CHEMISTRY ORDERABLES Performing Organization Address City/[facility] [place] [address] Prepare Coag Factors (Non-Hemophilia) (07/07/2017 1:25 PM EST) P athologist Signature Dispensed? Yes [facility] Specimen Anatomical Collection Method Collection Time Receive d Time (Source) Location / / Volume Laterality Blood specimen 07/07/2017 1:25 PM 017 1:21 (specimen) EST PM EST Daphne Shahid MD BLOOD BANK ORDERABLES Performing Organization Address City/[facility]/[place] [address] Prepare RBC (07/07/2017 1:10 PM EST) P athologist Signature Dispensed? Yes [facility] Specimen Anatomical Collection Method Collection Time Receive d Time (Source) Location / / Volume Laterality Blood specimen 07/07/2017 1:10 PM 017 1:05 (specimen) EST PM EST Daphne Shahid MD BLOOD BANK ORDERABLES Performing Organization Address City/[facility]/[place] [address] POCT Glucose (07/07/2017 11:56 AM EST) athologist Signature POC Glucose 188 65 - 199 [place] mg/dL [facility] Comment: Supplemental [...] Address City/State/ZIP Code Phon e Number [address] POCT Glucose (07/07/2017 11:05 AM EST) athologist Signature POC Glucose 168 65 - 199 [facility] SU mg/dL [facility] Comment: Supplemental [...] Address City/State/ZIP Code Phon e Number [address] POCT Glucose (07/07/2017 10:02 AM EST) athologist Signature POC Glucose 191 65 - 199 [place] mg/dL [facility] Comment: Supplemental [...] Address City/State/[place] [address] POCT Glucose (07/07/2017 7:53 AM EST) athologist Signature POC Glucose 178 65 - 199 [place] mg/dL [facility] Comment: Supplemental [...] Address City/State/[place] [address] POCT Glucose (07/07/2017 7:03 AM EST) athologist Signature POC Glucose 188 65 - 199 [facility] SU mg/dL [facility] Comment: Supplemental [...] Address City/State/[place] [address] (ABNORMAL) POCT Glucose (07/07/2017 6:17 AM EST) athologist Signature POC Glucose 207 (H) 65 - 199 [facility] Comment: Supplemental [...] Address City/State/[place] [address] Differential, Automated (07/07/2017 5:15 AM EST) P athologist Signature Neutrophils % 69.7 % [facility] Neutr Abs (ANC) 5.32 1.70 - [facility] 6.10 [facility] x10(3)/[facility] LABORATORY Lymphocytes % 16.3 % [facility] Lymphocytes Abs 1.2 0.9 - 3.2 [facility] x10(3)/[facility] LABORATORY Monocytes % 10.5 % [facility] Monocyte Abs 0.8 0.3 - 0.9 [facility] x10(3)/[facility] LABORATORY Eosinophils % 2.5 % [facility] Eosinophils Abs 0.2 0.0 - 0.4 [facility] x10(3)/[facility] LABORATORY Basophils % 0.7 % [facility] Basophils Abs 0.0 0.0 - 0.1 [facility] x10(3)/[facility] LABORATORY [...] Melisa Gran Abs 0.02 0.00 - 0.04 x10(3)/[facility] LABORATORY Specimen Anatomical Collection Method Collection Time Receive d Time (Source) Location / / Volume Laterality Blood specimen 07/07/2017 5:15 AM 017 5:34 (specimen) EST AM EST Resulting Agency Comment Spec In Lab Daphne Shahid MD HEMATOLOGY ORDERABLES Performing Organization Address City/State/[place] [address] (ABNORMAL) Hemogram (07/07/2017 5:15 AM EST) Analysis Performed At Patho logist Time Signature WBC 7.6 4.0 - 9.5 [facility] x10(3)/[facility] LABORATORY RBC 4.82 4.58 - [facility] 5.54 [facility] x10(6)/[facility] LABORATORY Hemoglobin 14.4 13.7 - [facility] gm/dL [facility] Hematocrit 42.1 40.5 - [facility] 48.5 % [facility] MCV 87.3 82.9 - [facility]1 [facility] LABORATORY MCH 29.9 27.5 - [place] 32.1 pg [facility] MCHC 34.2 32.0 - [facility] 35.7 gm/dL [facility] Platelets 188 145 - 357 [facility] x10(3)/[facility] LABORATORY RDWSD 45.1 (H) 36.0 - [facility] 45.0 [facility] LABORATORY RDWCV 14.3 (H) 11.4 - [facility] 13.8 % [facility] MPV 9.4 7.6 - 12.9 [facility] LABORATORY nRBC % Auto 0.0 % [facility] nRBC Abs Auto 0.000 0.000 - [facility] 0.000 [facility] x10(3)/[facility] LABORATORY Specimen Anatomical Collection Method Collection Time Receive d Time (Source) Location / / Volume Laterality Blood specimen 07/07/2017 5:15 AM 017 5:34 (specimen) EST AM EST Resulting Agency Comment Spec In Lab Daphne Shahid MD HEMATOLOGY ORDERABLES Performing Organization Address City/State/[place] [address] (ABNORMAL) APTT (07/07/2017 5:15 AM EST) P athologist Signature PTT 69 (H) 25 - 35 sec [facility] Comment: The recommended therapeutic range for fu ll dose, unfractionated heparin at [facility] is 80 ? 114 seconds. The use [...] Address City/State/ZIP Code Phon e Number [address] Magnesium (07/07/2017 5:15 AM EST) athologist Signature Magnesium 0.94 0.69 - 1.07 [facility] mmol/L [facility] Specimen Anatomical Collection Method Collection Time Receive d Time (Source) Location / / Volume Laterality Blood specimen 07/07/2017 5:15 AM 017 5:34 (specimen) EST AM EST Resulting Agency Comment Spec In Lab Daphne Shahid MD CHEMISTRY ORDERABLES Performing Organization Address City/[facility]/ZIP Code Phon e Number [address] (ABNORMAL) Basic Metabolic Panel (non-fasting) (07/07/2017 5:15 AM EST) athologist Signature Glucose Lvl 203 (H) 65 - 199 [facility] mg/dL [facility] Comment: Diabetes: >=200 mg/dL plus symp toms BUN 15 10 - 20 mg/dL [facility] LABORATORY Creatinine 1.09 0.80 - 1.50 mg/dL [facility] LAB[facility] Sodium 142 135 - 145 mmol/L [facility] Potassium 4.4 3.5 - 5.0 mmol/L [facility] Estimated GFR >60 >=60 [facility] Comment: The reported eGFR should be multiplied b y 1.2 for patients. The MDRD is not an appropriate measure o f renal function for patients with body mass extremes or in patients with acute kidney failure. http://[employer]/DHnkdep http://[employer]/DHMCnkf Specimen Anatomical Collection Method Collection Time Receive d Time (Source) Location / / Volume Laterality Blood specimen 07/07/2017 5:15 AM 017 5:34 (specimen) EST AM EST Resulting Agency Comment Spec In Lab Daphne Shahid MD CHEMISTRY ORDERABLES Performing Organization Address City/State/[place] [address] (ABNORMAL) Cardiac Enzymes (LEB/CGP) (07/07/2017 5:15 AM EST) P athologist Signature Troponin-T 2.07 (H) 0.00 [facility] ng/mL [facility] Comment: [...] sample may be indicated. Reference: Third [place] Definition of Myocardial Infarction. Journal of the [...] Address City/State/ZIP Code Phon e Number [address] POCT Glucose (07/07/2017 5:01 AM EST) athologist Signature POC Glucose 182 65 - 199 [facility] Comment: Supplemental [...] Address City/State/ZIP Code Phon e Number [address] POCT Glucose (07/07/2017 4:08 AM EST) athologist Signature POC Glucose 199 65 - 199 [facility] Comment: Supplemental [...] Address City/State/ZIP Code Phon e Number [address] POCT Glucose (07/07/2017 3:03 AM EST) athologist Signature POC Glucose 188 65 - 199 [facility] mg/dL [facility] Comment: Supplemental [...] Address City/State/[place] [address] (ABNORMAL) POCT Glucose (07/07/2017 2:08 AM EST) P athologist Signature POC Glucose 200 (H) 65 - 199 [facility] mg/dL [facility] Comment: Supplemental ranges: <140 mg/dL before meals <180 mg/dL all other times of the day Specimen Anatomical Collection Method Collection Time Receive d Time (Source) Location / / Volume Laterality Blood specimen 07/07/2017 2:08 AM 017 2:08 (specimen) EST AM EST Daphne Shahid MD POINT OF CARE TEST ORDERABLE S Performing Organization Address City/[facility]/[place] [address] (ABNORMAL) POCT Glucose (07/07/2017 1:31 AM EST) P athologist Signature POC Glucose 209 (H) 65 - 199 [facility] mg/dL [facility] Comment: Supplemental ranges: <140 mg/dL before meals <180 mg/dL all other times of the day Specimen Anatomical Collection Method Collection Time Receive d Time (Source) Location / / Volume Laterality Blood specimen 07/07/2017 1:31 AM 017 1:31 (specimen) EST AM EST Daphne Shahid MD POINT OF CARE TEST ORDERABLE S Performing Organization Address City/[facility]/[place] [address] XR Chest PA or [...] Signature POC Glucose 161 65 - 199 [facility] mg/dL [facility] Comment: [...] Organization Address City/State/[place] [address] (ABNORMAL) APTT (07/07/2017 12:00 AM EST) athologist Signature PTT 103 (H) 25 - 35 sec [facility] Comment: The recommended therapeutic range for fu ll dose, unfractionated heparin at [facility] is 80 ? 114 seconds. The use [...] Address City/State/ZIP Code Phon e Number [address] POCT Glucose (07/06/2017 9:55 PM EST) athologist Signature POC Glucose 109 65 - 199 [place] mg/dL [facility] Comment: Supplemental ranges: <140 mg/dL before meals <180 mg/dL all other times of the day Specimen Anatomical Collection Method Collection Time Receive d Time (Source) Location / / Volume Laterality Blood specimen 07/06/2017 9:55 PM 017 9:55 (specimen) EST PM EST Daphne Shahid MD POINT OF CARE TEST ORDERABLE S Performing Organization Address City/[facility]/ZIP Code Phon e Number [address] POCT Glucose (07/06/2017 9:04 PM EST) athologist Signature POC Glucose 120 65 - 199 [place] mg/dL [facility] Comment: Supplemental ranges: <140 mg/dL before meals <180 mg/dL all other times of the day Specimen Anatomical Collection Method Collection Time Receive d Time (Source) Location / / Volume Laterality Blood specimen 07/06/2017 9:04 PM 017 9:04 (specimen) EST PM EST Daphne Shahid MD POINT OF CARE TEST ORDERABLE S Performing Organization Address City/[facility]/ZIP Code Phon e Number [address] POCT Glucose (07/06/2017 7:45 PM EST) athologist Signature POC Glucose 158 65 - 199 [place] mg/dL [facility] Comment: Supplemental ranges: <140 mg/dL before meals <180 mg/dL all other times of the day Specimen Anatomical Collection Method Collection Time Receive d Time (Source) Location / / Volume Laterality Blood specimen 07/06/2017 7:45 PM 017 7:45 (specimen) EST PM EST Daphne Shahid MD POINT OF CARE TEST ORDERABLE S Performing Organization Address City/[facility]/[place] [address] Potassium (07/06/2017 7:40 PM EST) athologist Signature Potassium 3.9 3.5 - 5.0 [facility] mmol/L [facility] Comment: [...] Shahid MD CHEMISTRY ORDERABLES Performing Organization Address City/[facility]/ZIP Code Phon e Number [address] (ABNORMAL) Cardiac Enzymes (LEB/CGP) (07/06/2017 7:40 PM EST) athologist Signature Troponin-T 2.27 (H) 0.00 - [facility] 0.00 ng/mL [facility] [...] sample may be indicated. Reference: Third [place] Definition of Myocardial Infarction. Journal of the [place] [employer] 2012;60:1581-98 CK, Total 93 0 - 200 unit/L [facility] Specimen Anatomical Collection Method Collection Time Receive d Time (Source) Location / / Volume Laterality Blood specimen 07/06/2017 7:40 PM 017 7:52 (specimen) EST PM EST Resulting Agency Comment Spec In Lab Daphne Shahid MD CHEMISTRY ORDERABLES Performing Organization Address City/[facility]/[place] [address] (ABNORMAL) POCT Glucose (07/06/2017 7:13 PM EST) P athologist Signature POC Glucose 200 (H) 65 - 199 [facility] mg/dL [facility] Comment: [...] Address City/State/[place] [address] (ABNORMAL) APTT (07/06/2017 6:15 PM EST) P athologist Signature PTT 94 (H) 25 - 35 sec [facility] Comment: The recommended therapeutic range for fu ll dose, unfractionated heparin at [facility] is 80 ? 114 seconds. The use [...] Shahid MD HEMATOLOGY ORDERABLES Performing Organization Address City/[facility]/[place] [address] (ABNORMAL) POCT Glucose (07/06/2017 6:03 PM EST) athologist Signature POC Glucose 236 (H) 65 - 199 [place] mg/dL [facility] Comment: Supplemental ranges: <140 mg/dL before meals <180 mg/dL all other times of the day Specimen Anatomical Collection Method Collection Time Receive d Time (Source) Location / / Volume Laterality Blood specimen 07/06/2017 6:03 PM 017 6:03 (specimen) EST PM EST Daphne Shahid MD POINT OF CARE TEST ORDERABLE S Performing Organization Address City/[facility]/[place] [address] (ABNORMAL) POCT Glucose (07/06/2017 5:01 PM EST) athologist Signature POC Glucose 235 (H) 65 - 199 [place] mg/dL [facility] Comment: Supplemental ranges: <140 mg/dL before meals <180 mg/dL all other times of the day Specimen Anatomical Collection Method Collection Time Receive d Time (Source) Location / / Volume Laterality Blood specimen 07/06/2017 5:01 PM 017 5:01 (specimen) EST PM EST Daphne Shahid MD POINT OF CARE TEST ORDERABLE S Performing Organization Address City/[facility]/[place] [address] (ABNORMAL) POCT Glucose (07/06/2017 4:06 PM EST) athologist Signature POC Glucose 202 (H) 65 - 199 [place] mg/dL [facility] Comment: Supplemental [...] Address City/State/[place] [address] POCT Glucose (07/06/2017 2:59 PM EST) athologist Signature POC Glucose 178 65 - 199 [facility] Comment: Supplemental [...] Address City/State/[place] [address] (ABNORMAL) Cardiac Enzymes (LEB/CGP) (07/06/2017 2:10 PM EST) athologist Signature Troponin-T 2.34 (H) 0.00 - [facility] 0.00 ng/mL [facility] Comment: [...] sample may be indicated. Reference: Third [place] Definition of Myocardial Infarction. Journal of the [place] [employer] 2012;60:1581-98 CK, Total 101 0 - 200 unit/L [facility] Specimen Anatomical Collection Method Collection Time Receive d Time (Source) Location / / Volume Laterality Blood specimen 07/06/2017 2:10 PM 017 2:26 (specimen) EST PM EST Resulting Agency Comment Spec In Lab Daphne Shahid MD CHEMISTRY ORDERABLES Performing Organization Address City/[facility]/ZIP [facility] Phon e Number [address] POCT Glucose (07/06/2017 2:08 PM EST) P athologist Signature POC Glucose 192 65 - 199 [facility] mg/dL [facility] Comment: Supplemental ranges: <140 mg/dL before meals <180 mg/dL all other times of the day Specimen Anatomical Collection Method Collection Time Receive d Time (Source) Location / / Volume Laterality Blood specimen 07/06/2017 2:08 PM 017 2:08 (specimen) EST PM EST Daphne Shahid MD POINT OF CARE TEST ORDERABLE S Performing Organization Address City/[facility]/[place] [address] POCT Glucose (07/06/2017 1:04 PM EST) P athologist Signature POC Glucose 162 65 - 199 [facility]dL [facility] Comment: Supplemental ranges: <140 mg/dL before meals <180 mg/dL all other times of the day Specimen Anatomical Collection Method Collection Time Receive d Time (Source) Location / / Volume Laterality Blood specimen 07/06/2017 1:04 PM 017 1:04 (specimen) EST PM EST Daphne Shahid MD POINT OF CARE TEST ORDERABLE S Performing Organization Address City/State/[place] [address] [facility] [address] POCT Glucose (07/06/2017 12:05 PM EST) P athologist Signature POC Glucose 196 65 - 199 [facility] mg/dL [facility] Comment: Supplemental ranges: <140 mg/dL before meals <180 mg/dL all other times of the day Specimen Anatomical Collection Method Collection Time Receive d Time (Source) Location / / Volume Laterality Blood specimen 07/06/2017 12:05 7 (specimen) PM EST 12:05 PM EST Daphne Shahid MD POINT OF CARE TEST ORDERABLE S Performing Organization Address City/[facility]/ZIP Code Phon e Number [address] EKG 12 Lead (07/06/2017 12:00 PM EST) Component Value Ref Range Test Analysis Performed Pathologis t Method Time At Signature Ventricular rate 91 BPM MUSE SYSTEM Atrial Rate 91 BPM MUSE SYSTEM P-R Interval 140 ms MUSE SYSTEM QRS Duration 94 ms MUSE SYSTEM Q-T Interval 394 ms MUSE SYSTEM QTC Calculated 484 ms MUSE SYSTEM (Bezet) Calculated P Malcolm 36 degrees MUSE SYSTEM Calculated R Malcolm -19 degrees MUSE SYSTEM Calculated T Malcolm 104 degrees MUSE SYSTEM INTERPRETATION Normal sinus rhythm MUSE SYSTEM 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) ST & T wave abnormality, consider lateral ischemia Abnormal ECG When compared with ECG of 05-JUL-2017 20:39, No significant change was found Confirmed by MD Luci, Taurus Braun ([id number]) on 07/06/2017 5:07:33 PM Specimen Anatomical Collection Method Collection Time Receive d Time (Source) Location / / Volume Laterality 07/06/2017 12:00 07/06/2017 5:07 PM EST PM EST Daphne Shahid MD ECG ORDERABLES Performing Organization Address City/[facility]/ZIP Code Phon e Number MUSE SYSTEM ABORH [...] MD BLOOD BANK ORDERABLES Performing Organization Address City/[facility]/[place] [address] Antibody screen (07/06/2017 12:00 PM EST) Patholo gist Method Time Signature Ab Screen Negative [facility] LABORATORY Expires at 07/09/2017 [facility] [id number] on: [facility] Specimen Anatomical Collection Method Collection Time Receive d Time (Source) Location / / Volume Laterality Blood specimen 07/06/2017 12:00 7 (specimen) PM EST 12:24 PM EST Resulting Agency Comment Spec In Lab Daphne Shahid MD BLOOD BANK ORDERABLES Performing Organization Address City/[facility]/ZIP Code Phon e Number [address] ABO/Rh Typing (07/06/2017 12:00 PM EST) P athologist Signature ABORh Type O Pos [facility] Specimen Anatomical Collection Method Collection Time Receive d Time (Source) Location / / Volume Laterality Blood specimen 07/06/2017 12:00 7 (specimen) PM EST 12:24 PM EST Resulting Agency Comment Spec In Lab Daphne Shahid MD BLOOD BANK ORDERABLES Performing Organization Address City/[facility]/[place] [address] Prothrombin Time (07/06/2017 11:24 [...] Shahid MD HEMATOLOGY ORDERABLES Performing Organization Address City/[facility]/ZIP Code Phon e Number [address] (ABNORMAL) APTT (07/06/2017 11:24 AM EST) P athologist Signature PTT 52 (H) 25 - 35 sec [facility] Comment: The recommended therapeutic range for fu ll dose, unfractionated heparin at [facility] is 80 ? 114 seconds. The use [...] Shahid MD HEMATOLOGY ORDERABLES Performing Organization Address City/[facility]/[place] [address] POCT Glucose (07/06/2017 11:02 AM EST) athologist Signature POC Glucose 187 65 - 199 [facility] mg/dL [facility] Comment: Supplemental ranges: <140 mg/dL before meals <180 mg/dL all other times of the day Specimen Anatomical Collection Method Collection Time Receive d Time (Source) Location / / Volume Laterality Blood specimen 07/06/2017 11:02 7 (specimen) AM EST 11:02 AM EST Daphne Shahid MD POINT OF CARE TEST ORDERABLE S Performing Organization Address City/[facility]/[place] [address] POCT Glucose (07/06/2017 10:18 AM EST) P athologist Signature POC Glucose 193 65 - 199 [place] mg/dL [facility] Comment: [...] Address City/State/[place] [address] POCT Glucose (07/06/2017 9:25 AM EST) athologist [place] POC Glucose 182 65 - 199 [facility] mg/dL [facility] Comment: Supplemental [...] Address City/State/[place] [address] (ABNORMAL) Cardiac Enzymes (LEB/CGP) (07/06/2017 8:10 AM EST) [facility] [place] Troponin-T 2.26 (H) 0.00 - [facility] 0.00 ng/mL [facility] Comment: [...] sample may be indicated. Reference: Third [place] Definition of Myocardial Infarction. Journal of the [place] College [employer] 2012;60:1581-98 CK, Total 124 0 - 200 unit/L [facility] Specimen Anatomical Collection Method Collection Time Receive d Time (Source) Location / / Volume Laterality Blood specimen 07/06/2017 8:10 AM 017 8:23 (specimen) EST AM EST Resulting Agency Comment Spec In Lab Daphne Shahid MD CHEMISTRY ORDERABLES Performing Organization Address City/[facility]/[place] [address] Magnesium (07/06/2017 8:10 AM EST) P athologist Signature Magnesium 0.84 0.69 - 1.07 [facility] mmol/L [facility] Specimen Anatomical Collection Method Collection Time Receive d Time (Source) Location / / Volume Laterality Blood specimen 07/06/2017 8:10 AM 017 8:21 (specimen) EST AM EST Resulting Agency Comment Spec In Lab Daphne Shahid MD CHEMISTRY ORDERABLES Performing Organization Address City/[facility]/ZIP [facility] [place] [address] (ABNORMAL) Basic Metabolic Panel (non-fasting) (07/06/2017 8:10 AM EST) P athologist Signature Glucose Lvl 199 65 - 199 [facility] mg/dL [facility] Comment: [...] [facility] Estimated GFR >60 >=60 [facility] Comment: The reported eGFR should be multiplied b y 1.2 for patients. The MDRD is not an appropriate measure o f renal function for patients with body mass extremes or in patients with acute kidney failure. http://[employer]/DHnkdep http://[employer]/DHnkf Specimen Anatomical Collection Method Collection Time Receive d Time (Source) Location / / Volume Laterality Blood specimen 07/06/2017 8:10 AM 017 8:21 (specimen) EST AM EST Resulting Agency Comment Spec In Lab Daphne Shahid MD CHEMISTRY ORDERABLES Performing Organization Address City/[facility]/[place] [address] POCT Glucose (07/06/2017 7:34 AM EST) P athologist Signature POC Glucose 198 65 - 199 [facility] mg/dL [facility] Comment: Supplemental ranges: <140 mg/dL before meals <180 mg/dL all other times of the day Specimen Anatomical Collection Method Collection Time Receive d Time (Source) Location / / Volume Laterality Blood specimen 07/06/2017 7:34 AM 017 7:34 (specimen) EST AM EST Daphne Shahid MD POINT OF CARE TEST ORDERABLE S Performing Organization Address City/[facility]/[place] [address] POCT Glucose (07/06/2017 7:03 AM EST) P athologist Signature POC Glucose 181 65 - 199 [place] mg/dL [facility] Comment: Supplemental ranges: <140 mg/dL before meals <180 mg/dL all other times of the day Specimen Anatomical Collection Method Collection Time Receive d Time (Source) Location / / Volume Laterality Blood specimen 07/06/2017 7:03 AM 017 7:03 (specimen) EST AM EST Daphne Shahid MD POINT OF CARE TEST ORDERABLE S Performing Organization Address City/State/ZIP Code Phon e Number [facility] [address] XR Chest PA or [...] Signature POC Glucose 172 65 - 199 [facility] mg/dL [facility] Comment: Supplemental [...] Address City/State/[place] [address] POCT Glucose (07/06/2017 5:08 AM EST) athologist Signature POC Glucose 154 65 - 199 [facility] Comment: Supplemental [...] Address City/State/[place] [address] POCT Glucose (07/06/2017 4:05 AM EST) athologist Signature POC Glucose 142 65 - 199 [facility]/dL [facility] Comment: Supplemental [...] Address City/State/ZIP Code Phon e Number [address] POCT Glucose (07/06/2017 3:00 AM EST) athologist Signature POC Glucose 116 65 - 199 [facility] mg/dL [facility] Comment: Supplemental ranges: <140 mg/dL before meals <180 mg/dL all other times of the day Specimen Anatomical Collection Method Collection Time Receive d Time (Source) Location / / Volume Laterality Blood specimen 07/06/2017 3:00 AM 017 3:00 (specimen) EST AM EST Daphne Shahid MD POINT OF CARE TEST ORDERABLE S Performing Organization Address City/[facility]/ZIP Code Phon e Number [address] Potassium (07/06/2017 2:20 AM EST) athologist [facility] Potassium 3.9 3.5 - 5.0 [facility] mmol/L [facility] Comment: [...] Shahid MD CHEMISTRY ORDERABLES Performing Organization Address City/[facility]/ZIP Code Phon e Number [address] Differential, Automated (07/06/2017 2:20 AM EST) athologist Signature Neutrophils % 72.9 % [facility] Neutr Abs (ANC) 5.53 1.70 - [facility] 6.10 [facility] x10(3)/[facility] LABORATORY Lymphocytes % 16.4 % [facility] Lymphocytes Abs 1.2 0.9 - 3.2 [facility] x10(3)/[facility] LABORATORY Monocytes % 9.4 % [facility] Monocyte Abs 0.7 0.3 - 0.9 [facility] x10(3)/[facility] LABORATORY Eosinophils % 0.5 % [facility] Eosinophils Abs 0.0 0.0 - 0.4 [facility] x10(3)/[facility] LABORATORY Basophils % 0.4 % [facility] Basophils Abs 0.0 0.0 - 0.1 [facility] x10(3)/[facility] LABORATORY [...] Gran Abs 0.03 0.00 - 0.04 x10(3)/[facility] MAR Y [facility] LAB[facility]AT[facility] Specimen Anatomical Collection Method Collection Time Receive d Time (Source) Location / / Volume Laterality Blood specimen 07/06/2017 2:20 AM 017 2:33 (specimen) EST AM EST Resulting Agency Comment Spec In Lab Daphne Shahid MD HEMATOLOGY ORDERABLES Performing Organization Address City/State/[place] [address] (ABNORMAL) Hemogram (07/06/2017 2:20 AM EST) Analysis Performed At Patho logist Time Signature WBC 7.6 4.0 - 9.5 [facility] x10(3)/[facility] LABORATORY RBC 4.52 (L) 4.58 - [facility] 5.54 [facility] x10(6)/[facility] LABORATORY Hemoglobin 13.4 (L) 13.7 - [place] [facility] 16.5 gm/dL [facility] Hematocrit 39.7 (L) 40.5 - [facility] 48.5 % [facility] MCV 87.8 82.9 - [facility] 93.1 [facility] LABORATORY MCH 29.6 27.5 - [place] 32.1 pg [facility] MCHC 33.8 32.0 - [place] 35.7 gm/dL [facility] Platelets 189 145 - 357 [facility] x10(3)/[facility] LABORATORY RDWSD 45.6 (H) 36.0 - [facility] 45.0 [facility] LABORATORY RDWCV 14.3 (H) 11.4 [facility] 13.8 % [facility] MPV 9.1 7.6 - 12.9 [facility] LABORATORY nRBC % Auto 0.0 % [facility] nRBC Abs Auto 0.000 0.000 - [facility] 0.000 [facility] x10(3)/[facility] LABORATORY Specimen Anatomical Collection Method Collection Time Receive d Time (Source) Location / / Volume Laterality Blood specimen 07/06/2017 2:20 AM 017 2:33 (specimen) EST AM EST Resulting Agency Comment Spec In Lab Daphne Shahid MD HEMATOLOGY ORDERABLES Performing Organization Address City/State/[place] [address] (ABNORMAL) APTT (07/06/2017 2:20 AM EST) P athologist Signature PTT 52 (H) 25 - 35 sec [facility] Comment: The recommended therapeutic range for fu ll dose, unfractionated heparin at [facility] is 80 ? 114 seconds. The use [...] Address City/State/ZIP Code Phon e Number [address] POCT Glucose (07/06/2017 2:20 AM EST) athologist Signature POC Glucose 115 65 - 199 [facility] mg/dL [facility] Comment: Supplemental ranges: <140 mg/dL before meals <180 mg/dL all other times of the day Specimen Anatomical Collection Method Collection Time Receive d Time (Source) Location / / Volume Laterality Blood specimen 07/06/2017 2:20 AM 017 2:20 (specimen) EST AM EST Daphne Shahid MD POINT OF CARE TEST ORDERABLE S Performing Organization Address City/[facility]/[place] [address] (ABNORMAL) Cardiac Enzymes (LEB/CGP) (07/06/2017 2:20 AM EST) athologist Signature Troponin-T 2.13 (H) 0.00 - [place] 0.00 ng/mL [facility] Comment: [...] sample may be indicated. Reference: Third [place] Definition of Myocardial Infarction. Journal of the [...] Organization Address City/State/[place] [address] (ABNORMAL) Hemoglobin A1c (07/06/2017 [...] [id number] Est Avg Gluc See note mg/dL KERBS [...] with hemoglobinopathies. Additional resources are available on [facility] website. Macario HAMMOND, Ruthann J, Deysi R, et al. ??Tr anslating the A1C assay into estimated average glucose values. ??Diabetes Care 2008:31(8):1699-2256. Specimen Anatomical Collection Method Collection Time Receive d Time (Source) Location / / Volume Laterality Blood specimen 07/06/2017 2:20 AM 017 2:34 (specimen) EST AM EST Resulting Agency Comment Spec In Lab Daphne Shahid MD CHEMISTRY ORDERABLES Performing Organization Address City/State/[place] [address] (ABNORMAL) Lipid Panel (07/06/2017 2:20 AM EST) [facility] Method Time Signature Chol, Total 150 <=239 [place] mg/dL [facility] Triglycerides 129 <=199 [facility] mg/dL [facility] HDL 32 (L) >=40 [facility] mg/dL [facility] LDL Cholesterol 92 <=190 [facility] mg/dL [facility] Chol/HDL Ratio 4.7 ratio [facility] Lipid See Note [place] Interpretation [facility] Comment: Lipid management should be guided by a p atient? s ASCVD risk, goals and preferences. ACC/AHA Guidelines recommend high intens ity statin if clinical ASCVD or LDL greater than or equal to 190 mg/dL. [email or web address]-MJQ-Pekrqricf Adults aged 40-75 with LDL 70-189 mg/dL should have their 10 year ASCVD risk estimated with the ACC/AHA ASCVD risk es timator http://tools.acc.org/KFCPR-Flxf-Zpabkkln r/ Statin should be discussed if risk [...] Address City/State/ZIP Code Phon e Number [address] POCT Glucose (07/06/2017 1:09 AM EST) athologist Signature POC Glucose 121 65 - 199 [facility] mg/dL [facility] Comment: Supplemental ranges: <140 mg/dL before meals <180 mg/dL all other times of the day Specimen Anatomical Collection Method Collection Time Receive d Time (Source) Location / / Volume Laterality Blood specimen 07/06/2017 1:09 AM 017 1:09 (specimen) EST AM EST Daphne Shahid MD POINT OF CARE TEST ORDERABLE S Performing Organization Address City/[facility]/[place] [address] POCT Glucose (07/06/2017 12:06 AM EST) athologist Signature POC Glucose 147 65 - 199 [facility] mg/dL [facility] Comment: Supplemental [...] Address City/State/[place] [address] (ABNORMAL) POCT Glucose (07/05/2017 10:56 PM EST) athologist Signature POC Glucose 200 (H) 65 - 199 [facility] mg/dL [facility] Comment: Supplemental [...] Address City/State/[place] [address] (ABNORMAL) POCT Glucose (07/05/2017 10:05 PM EST) athologist Signature POC Glucose 225 (H) 65 - 199 [facility] mg/dL [facility] Comment: Supplemental [...] Address City/State/[place] [address] (ABNORMAL) POCT Glucose (07/05/2017 9:02 PM EST) athologist Signature POC Glucose 301 (H) 65 - 199 [place] mg/dL [facility] Comment: Supplemental [...] Address City/State/[place] [address] XR Chest PA or [...] 474 ms MUSE SYSTEM (Bezet) Calculated P Malcolm 50 degrees MUSE SYSTEM Calculated R Malcolm -28 degrees MUSE SYSTEM Calculated T Malcolm 90 degrees MUSE SYSTEM INTERPRETATION Sinus tachycardia [...] Neutr Abs (ANC) 9.08 (H) 1.70 - [facility] 6.10 [facility] x10(3)/[facility] LABORATORY Lymphocytes % 7.0 % [facility] Lymphocytes Abs 0.7 (L) 0.9 - 3.2 [facility] x10(3)/[facility] LABORATORY Monocytes % 3.7 % [facility] Monocyte Abs 0.4 0.3 - 0.9 [facility] x10(3)/[facility] LABORATORY Eosinophils % 0.1 % [facility] Eosinophils Abs 0.0 0.0 - 0.4 [facility] x10(3)/[facility] LABORATORY Basophils % 0.2 % [facility] Basophils Abs 0.0 0.0 - 0.1 [facility] x10(3)/[facility] [...] Abs 0.06 (H) 0.00 - 0.04 x10(3)/[facility] LABORATORY Specimen Anatomical Collection Method Collection Time Receive d Time (Source) Location / / Volume Laterality Blood specimen 07/05/2017 8:20 PM 017 8:27 (specimen) EST PM EST Resulting Agency Comment Spec In Lab Daphne Shahid MD HEMATOLOGY ORDERABLES Performing Organization Address City/State/[place] [address] (ABNORMAL) Hemogram (07/05/2017 8:20 PM EST) Analysis Performed At Patho logist Time Signature WBC 10.3 (H) 4.0 - 9.5 [facility] x[facility](3[facility] LABORATORY RBC 4.64 4.58 - [place] 5.54 [facility] x10(6)/[facility] LABORATORY Hemoglobin 14.1 13.7 - [facility] 16.5 gm/dL [facility] Hematocrit 40.8 40.5 - [facility] 48.5 % [facility] MCV 87.9 82.9 - [facility] SU 93.1 [facility] LABORATORY MCH 30.4 27.5 - [place] 32.1 pg [facility] MCHC 34.6 32.0 - [facility] SU 35.7 gm/dL [facility] Platelets 204 145 - 357 [facility] x10(3)/[facility] LABORATORY RDWSD 46.1 (H) 36.0 - [facility] 45.0 [facility] LABORATORY RDWCV 14.5 (H) 11.4 - [facility] SU 13.8 % [facility] MPV 9.7 7.6 - 12.9 [facility] nRBC % Auto 0.0 % [facility] nRBC Abs Auto 0.000 0.000 - [facility] SU 0.000 [facility] x10(3)/[facility] LABORATORY Specimen Anatomical Collection Method Collection Time Receive d Time (Source) Location / / Volume Laterality Blood specimen 07/05/2017 8:20 PM 017 8:27 (specimen) EST PM EST Resulting Agency Comment Spec In Lab Daphne Shahid MD HEMATOLOGY ORDERABLES Performing Organization Address City/State/ZIP Code Phon e Number [place] [address] APTT (07/05/2017 8:20 PM EST) athologist Signature PTT 32 25 - 35 sec [facility] Comment: The recommended therapeutic range for fu ll dose, unfractionated heparin at [facility] is 80 ? 114 seconds. The use [...] Address City/State/[place] [address] (ABNORMAL) Cardiac Enzymes (LEB/CGP) (07/05/2017 8:20 PM EST) athologist Signature Troponin-T 2.11 (H) 0.00 - [facility] 0.00 ng/mL [facility]OR[facility]ORY [...] sample may be indicated. Reference: Third [place] Definition of Myocardial Infarction. Journal of the [place] College of [employer]iology 2012;60:1581-98 CK, Total 149 0 - 200 unit/L [facility] Specimen Anatomical Collection Method Collection Time Receive d Time (Source) Location / / Volume Laterality Blood specimen 07/05/2017 8:20 PM 017 8:27 (specimen) EST PM EST Resulting Agency Comment Spec In Lab Daphne Shahid MD CHEMISTRY ORDERABLES Performing Organization Address City/[facility]/ZIP Code Phon e Number [address] (ABNORMAL) Magnesium (07/05/2017 8:20 PM EST) P athologist Signature Magnesium 0.68 (L) 0.69 - 1.07 [facility] mmol/L [facility] Specimen Anatomical Collection Method Collection Time Receive d Time (Source) Location / / Volume Laterality Blood specimen 07/05/2017 8:20 PM 017 8:27 (specimen) EST PM EST Resulting Agency Comment Spec In Lab Daphne Shahid MD CHEMISTRY ORDERABLES Performing Organization Address City/[facility]/[place] [address] (ABNORMAL) Basic Metabolic Panel (non-fasting) (07/05/2017 8:20 PM EST) P athologist Signature Glucose Lvl 321 (H) 65 - 199 [facility] mg/dL [facility] Comment: Diabetes: >=200 mg/dL plus symp toms BUN 20 10 - 20 mg/dL [facility] Creatinine 1.12 0.80 - 1.50 mg/dL [facility] Sodium 139 135 - 145 mmol/L [facility] Potassium 3.8 3.5 - 5.0 mmol/L [facility] Estimated GFR >60 >=60 [facility] Comment: The reported eGFR should be multiplied b y 1.2 for patients. The MDRD is not an appropriate measure o f renal function for patients with body mass extremes or in patients with acute kidney failure. http://[employer]/DHnkdep http://[employer]/DHMCnkf Specimen Anatomical Collection Method Collection Time Receive d Time (Source) Location / / Volume Laterality Blood specimen 07/05/2017 8:20 PM 017 8:27 (specimen) EST PM EST Resulting Agency Comment Spec In Lab Daphne Shahid MD CHEMISTRY ORDERABLES Performing Organization Address City/State/[place] [address] (ABNORMAL) POCT Glucose (07/05/2017 7:32 PM EST) P athologist Signature POC Glucose 296 (H) 65 - 199 [facility] mg/dL [facility] Comment: [...] Address City/State/[place] [address] CARDIAC CATHETERIZATION (07/05/2017 6:47 PM EST) Anatomical Region Laterality Modality Other Specimen (Source) Anatomical Location Collection Method / Collectio n Time Received Time / Laterality Volume Narrative 07/05/2017 7:27 PM EST ?[facility] ? Cardiac Cathete rization/Intervention Report ? Patient Name: Gregory Hoang ? Procedure Date: 07/05/2017 ? A #: [id number] ? Primary Physician: Clarisa, Jet T ? Case #: [id number] ? File Name: [id number] ? Catheterization Order Number: [id number] ? [facility] ? Final Report [place], [place] ? Patient Name: ? Gregory Natalya ?ID#: ?[id number] ? : ?1945 ? Procedure Date: ? [...] presented with: non -STEMI (w/i 7 days). [place] ?[employer] angina c lass was IV. [...] angio graphy and IABP insertion in lab coordinator. ? Jet Mckenna M.D. ? Electronically Signed by: Jet bunch M.D. ? Report Finalized: 07/05/2017 ??19:23 ? Report Last Ammended: 10/26/2017 ??10:29 ? Procedure Note Jet Mckenna MD - 10/26/2017Formatt ing of this note might be different from the original. [facility] Cardiac Catheterization/Intervention Re port Patient Name: Gregory Hoang Procedure Date: 07/05/2017 A #: [id number] Primary Physician: Jet Mckenna Case #: [id number] File Name: [id number] Catheterization Order Number: [id number] [facility] Machine Rope [employer] [facility] Final Report [place], [place] Patient Name: Gregory Hoang ID#: [id number] 3-9 : 1945 Procedure Date: July 05, [...] presented with: non-STEMI ( w/i 7 days). [employer] angina class was IV. No [...] angiograph y and IABP insertion in lab coordinator. Jet Mckenna M.D. Electronically Signed by: Jet [...] Mccollum ? (Age): 1945(72y) Med Rec#: ? [id number] ?Sex: ?M ? Site Loc: ? [facility] ?Ht / Wt: ??173(cm)/86(kg) Pt. Loc: ?CCU ? BSA: ?2 Study Date: ?? 07/05/2017 ?Pt. Type: Inpatient Tape: ? Referring: Daphne Shahid ([id number]) Referring: MANDA ALCANTAR Reading: Blade Preston ([id number]) Government Affairs Manager: Dayami Paula BA, [facility] Diagnosis: [...] E-wave Vmax ?0.8 ?m/sec ? MV deceleration [id number] ?msec ? MV A-wave Vmax ?0.8 ?m/sec [...] ? Mid-Inferior ?Akinetic ? Mid-Inferoseptal ?Hypokinetic ? [place]-Septal ? Akinetic ? [place]-Anterior ? Hypokinetic ? [place]-Lateral ?Hypokinetic ? [place]-Inferior ? Akinetic ? [place]-Tip ?Akinetic ? This report has been electronically sign ed by: _ Blade Preston MD ? 07/06/2017 08 :53:15 Images reviewed and interpretation [facility] Cardiac Ultrasound Laboratory Procedure Note Blade Preston MD - 07/06/2017Formatt ing of this note might be different from the original. Procedure: Transthoracic Echocardiogram Patient: NATALYA MCBRIDE(Age): [birth year]72y) Med Rec#: [id number] Sex: M Site Loc: [facility] Ht / Wt: 173(cm)/86(kg) Pt. Loc: CCU BSA: 2 Study Date: 07/05/2017 Pt. Type: Inpatie nt Tape: Referring: Daphne Shahid ([id number]) Referring: MANAD ALCANTAR Reading: Blade Preston ([id number]) Government Affairs Manager: Dayami Paula BA, [facility] Diagnosis: [...] MV E-wave Vmax 0.8 m/sec MV deceleration [id number] msec MV A-wave Vmax 0.8 m/sec MV [...] Hypokinetic Mid-Posterolateral Hypokinetic Mid-Inferior Akinetic Mid-Inferoseptal Hypokinetic [place]-Septal Akinetic [place]-Anterior Hypokinetic [place]-Lateral Hypokinetic [place]-Inferior Akinetic [place]-Tip Akinetic This report has been electronically sign ed by: _ Blade Preston MD 07/06/2017 08:53:15 Images reviewed and interpretation ver ied [facility] Cardiac Ultrasound Laboratory Daphne Shahid MD ECHO ORDERABLES Differential, Automated (07/05/2017 4:55 PM EST) athologist Signature Neutrophils % 77.0 % [facility] Neutr Abs (ANC) 5.26 1.70 - [facility] 6.10 [facility] x10(3)/[facility] LABORATORY Lymphocytes % 13.3 % [facility] Lymphocytes Abs 0.9 0.9 - 3.2 [facility] x10(3)/[facility] LABORATORY Monocytes % 8.2 % [facility] Monocyte Abs 0.6 0.3 - 0.9 [facility] x10(3)/[facility] LABORATORY Eosinophils % 0.7 % [facility] Eosinophils Abs 0.0 0.0 - 0.4 [facility] x10(3)/[facility] LABORATORY Basophils % 0.4 % [facility] Basophils Abs 0.0 0.0 - 0.1 [facility] x10(3)/[facility] LABORATORY [...] Gran Abs 0.03 0.00 - 0.04 x10(3)/[facility] LABOR[facility]ORY Specimen Anatomical Collection Method Collection Time Receive d Time (Source) Location / / Volume Laterality Blood specimen 07/05/2017 4:55 PM 017 5:24 (specimen) EST PM EST Resulting Agency Comment Spec In Lab Daphne Shahid MD HEMATOLOGY ORDERABLES Performing Organization Address City/State/[place] [address] (ABNORMAL) Hemogram (07/05/2017 4:55 PM EST) Analysis Performed At Patho logist Time Signature WBC 6.8 4.0 - 9.5 [facility] x10(3)/[facility] LABORATORY RBC 4.67 4.58 - [facility] 5.54 [facility] x10(6)/[facility] LABORATORY Hemoglobin 14.0 13.7 - [place] [facility] 16.5 gm/dL [facility] Hematocrit 41.0 40.5 - [place] 48.5 % [facility] MCV 87.8 82.9 - [facility].1 [facility] LABORATORY MCH 30.0 27.5 - [place] 32.1 pg [facility] MCHC 34.1 32.0 - [place] 35.7 gm/dL [facility] Platelets 197 145 - 357 [facility] x10(3)/[facility] LABORATORY RDWSD 46.4 (H) 36.0 - [place] 45.0 [facility] LABORATORY RDWCV 14.5 (H) 11.4 - [place] 13.8 % [facility] MPV 9.7 7.6 - 12.9 [facility] LABORATORY nRBC % Auto 0.0 % [facility] nRBC Abs Auto 0.000 0.000 - [place] 0.000 [facility] x10(3)/[facility] LABORATORY Specimen Anatomical Collection Method Collection Time Receive d Time (Source) Location / / Volume Laterality Blood specimen 07/05/2017 4:55 PM 017 5:24 (specimen) EST PM EST Resulting Agency Comment Spec In Lab Daphne Shahid MD HEMATOLOGY ORDERABLES Performing Organization Address City/State/[place] [address] (ABNORMAL) Cardiac Enzymes (LEB/CGP) (07/05/2017 4:55 PM EST) P athologist Signature Troponin-T 1.69 (H) 0.00 - [place] 0.00 ng/mL [facility] [...] sample may be indicated. Reference: Third [place] Definition of Myocardial Infarction. Journal of the [...] Address City/State/ZIP Code Phon e Number [address] (ABNORMAL) pro-Brain Natriuretic Peptide (07/05/2017 4:55 PM EST) P athologist Signature ProBNP 1,598 (H) <=125 [facility] pg/mL [facility] Specimen Anatomical Collection Method Collection Time Receive d Time (Source) Location / / Volume Laterality Blood specimen 07/05/2017 4:55 PM 017 5:24 (specimen) EST PM EST Resulting Agency Comment Spec In Lab Daphne Shahid MD CHEMISTRY ORDERABLES Performing Organization Address City/State/ZIP Code Phon e Number [address] Magnesium (07/05/2017 4:55 PM EST) P athologist Signature Magnesium 0.78 0.69 - 1.07 [facility] mmol/L [facility] Specimen Anatomical Collection Method Collection Time Receive d Time (Source) Location / / Volume Laterality Blood specimen 07/05/2017 4:55 PM 017 5:24 (specimen) EST PM EST Resulting Agency Comment Spec In Lab Daphne Shahid MD CHEMISTRY ORDERABLES Performing Organization Address City/State/[place] [address] (ABNORMAL) Basic Metabolic Panel (non-fasting) (07/05/2017 4:55 PM EST) P athologist Signature Glucose Lvl 230 (H) 65 - 199 [facility] mg/dL [facility] Comment: [...] [facility] Estimated GFR >60 >=60 [facility] Comment: The reported eGFR should be multiplied b y 1.2 for patients. The MDRD is not an appropriate measure o f renal function for patients with body mass extremes or in patients with acute kidney failure. http://[employer].MailWriter/DHnkdep http://[employer]/DHMCnkf Specimen Anatomical Collection Method Collection Time Receive d Time (Source) Location / / Volume Laterality Blood specimen 07/05/2017 4:55 PM 017 5:24 (specimen) EST PM EST Resulting Agency Comment Spec In Lab Daphne Shahid MD CHEMISTRY ORDERABLES Performing Organization Address City/[facility]/[place] [address] (ABNORMAL) APTT (07/05/2017 4:55 PM EST) P athologist Signature PTT 41 (H) 25 - 35 sec [facility] Comment: The recommended therapeutic range for fu ll dose, unfractionated heparin at [facility] is 80 ? 114 seconds. The use [...] Shahid MD HEMATOLOGY ORDERABLES Performing Organization Address City/[facility]/[place] [address] (ABNORMAL) POCT Glucose (07/05/2017 4:53 PM EST) athologist Signature POC Glucose 208 (H) 65 - 199 [facility] mg/dL [facility] Comment: Supplemental ranges: <140 mg/dL before meals <180 mg/dL all other times of the day Specimen Anatomical Collection Method Collection Time Receive d Time (Source) Location / / Volume Laterality Blood specimen 07/05/2017 4:53 PM 017 4:53 (specimen) EST PM EST Daphne Shahid MD POINT OF CARE TEST ORDERABLE S Performing Organization Address City/[facility]/[place] [address] EKG 12 Lead (07/05/2017 4:32 PM EST) Component Value Ref Range Test Analysis Performed Pathologis t Method Time At Signature Ventricular rate 97 BPM MUSE SYSTEM Atrial Rate 97 BPM MUSE SYSTEM P-R Interval 148 ms MUSE SYSTEM QRS Duration 96 ms MUSE SYSTEM Q-T Interval 364 ms MUSE SYSTEM QTC Calculated 462 ms MUSE SYSTEM (Bezet) Calculated P Malcolm 48 degrees MUSE SYSTEM Calculated R Malcolm -33 degrees MUSE SYSTEM Calculated T Malcolm 98 degrees MUSE SYSTEM INTERPRETATION Normal sinus [...] unspecified type of vessel, [place] or graft Cardiomyopathy, ischemic Other specified forms [...] dose on Wed07/07/17 at 2100, Until Discontinued, [place] teeth, Routine Given 07/08/2017 10:06 PM EST [...] or norepinephrine is ineffective. Call pager # [phone] if initiated. Rate/Dose Change 07/08/2017 7:01 PM [...] if phenyleprine and/or vasopressin ineffective.Call pager # [phone] if initiated., Routine Rate/Dose Change 07/09/2017 1:24 [...] L/min/M2. Maximum volume 2 L. Call warehouse associate for additional fluid orders: pager #[phone]. Rate/Dose Verify 07/08/2017 4:00 AM EST 100 [...]
Routine documented in this encounter Care Teams Resin Coater Relationship Specialty Start Date End Date Lovely Vicente MD PCP - General 04/16/[address] [place] [address] documented as of this encounter
--- OUTSIDE RECORDS SUMMARY | 2022-04-13 08:15 | XMS_ITS | Encounter Summary ---
:1945 Author Organization [facility] [place] [address] Care Team Providers Name Role Phone Lovely Vicente MD Primary Care Provider Encounter Details Date Type Department Care Team Description 07/08/2017 Orders Only [facility] [place] [address] Social History Tobacco Use Types Packs/Day [...] Dolan MD [facility] er [place], [place] [address] (Wo rk) 05/28/2022 Laboratory Appointment Lab 05/28/2022 Office Visit Cardiology Zulma Dolan MD [facility] [place] [address] Liz Poole PA [facility] [place] [address] 06/10/2022 Office Visit Dermatology Laura Scherer MD [facility] ER [address] [place] [address] (Wo rk) documented as of this encounter [...] Mccollum ? (Age): 1945(72y) Med Rec#: ? [id number] ?Sex: ?M ? Site Loc: ? Ht / Wt: ??(cm)/ (kg) ? Pt. Loc: ? Study Date: ?? 07/07/2017 ?Pt. Type: Tape: ? Referring: Yuan Retana Reading: Yifan Perez MD ([id number]) Performing: Yifan Perez MD ([id number]) Diagnosis: SUMMARY: 1. Intraoperative AVELINO performed at the [facility] of Dr. Miek for the diagnosis and evaluation of hemodynamics [...] ? Mid-Inferior ?Hypokinetic ? Mid-Inferoseptal ?Hypokinetic ? [place]-Septal ? Hypokinetic ? [place]-Anterior ? Hypokinetic ? [place]-Lateral ?Hypokinetic ? [place]-Inferior ? Hypokinetic ? [place]-Tip ?Not Seen ? This report has been electronically sign ed by: _ Yifan Perez MD ? 07/08/2017 12 :25:18 Images reviewed and interpretation verif ied [facility] Cardiac Ultrasound Laboratory Procedure Note Yifan Perez MD - 07/08/2017Formatt ing of this note might be different from the original. Procedure: Transesophageal Echocardiogra m Patient: NATALYA MCBRIDE(Age): [birth year]72y) Med Rec#: [id number] Sex: M Site Loc: Ht / Wt: (cm)/ (kg) Pt. Loc: Study Date: 07/07/2017 Pt. Type: Tape: Referring: Yuan Retana Reading: Yifan Perez MD ([id number]) Performing: Yifan Perez MD ([id number]) Diagnosis: SUMMARY: 1. [facility] for the diagnosis and [...] Hypokinetic Mid-Posterolateral Hypokinetic Mid-Inferior Hypokinetic Mid-Inferoseptal Hypokinetic [place]-Septal Hypokinetic [place]-Anterior Hypokinetic [place]-Lateral Hypokinetic [place]-Inferior Hypokinetic [place]-Tip Not Seen This report has been electronically sign ed by: _ Yifan Perez MD 07/08/2017 12:25:18 Images reviewed and interpretation elvie hwang [facility] Cardiac Ultrasound Laboratory Unknown ECHO ORDERABLES documented in this encounter Visit Diagnoses Not on filedocumented in this encounter Care Teams Surface Grinding Machine Hand Relationship Specialty Start Date End Date Lovely Vicente MD PCP - General 04/16/[address] [place] [address] documented as of this encounter
--- OUTSIDE RECORDS SUMMARY | 2022-04-13 08:16 | XMS_ITS | Encounter Summary ---
:1945 [place] [address] Care Team Providers Name Role Phone Lovely Vicente MD Primary Care Provider Reason for Visit Auth/Cert Specialty Diagnoses / Procedures Referred By Contact Refer red To Contact Diagnoses STEMI (ST elevation myocardial infarction) NSTEMI STEMI Procedures CARDIAC CATHETERIZATION NAYE IPI Referral ID Status Reason Start Date Expiration Date Visits Requ ested Visits Authorized [id number] 1 1 Encounter Details Date Type Department Care Team Description 07/07/2017 Anesthesia Event Main Operating Room Yifan Jaime MD [facility] [place] [address] [facility] Ginny Murray MD [facility] DR [place] [address] [facility] [place] [address] Anesthesia Record Procedure Summary Procedure Name [...] 07/13/17 0648 b y amiodarone infiltrate; Elizabeth eFrrer RN Plante, Donald A, RN site symptomatic; [...] Maza, Angela Mccurdy, left; 18 gauge; removed FIELD FOREMAN per policy/procedure; 07/11/17; 2355 Intra-Aortic Balloon 07/05/17; [...] Miller, Carrie L, Type: Cuffed; ETT Size: CUSTOMER DATA TECHNICIAN 8 mm; Santiago Blade: 2; Notes: [...] - 07/08/2017 5:08 PM EST [facility] Department of Anesthesiology Post-procedure Note Patient: Don Fatima Procedure Summary Date Anesthesia Start Anesthesia Stop Room / Location 07/07/17 1335 1836 [facility] OR [facility] MAIN OR Procedure Diagnosis Surgeon Responsible Provider @CABG, USING ARTERIAL GRAFT;SINGLE ARTERIAL GRAFT (WRVU 33.75) (N/A Chest); @CABG, TWO VENOUS GRAFTS & ARTERIAL GRAFT (WRVU 7.93) (N/A Chest); ENDOSCOPIC HARVEST VEIN(S) FOR CABG (WRVU 0.31) (Right Leg) (CAD) Yuan Freitas MD Hartman, Gregg S, MD All Anesthesia Providers: Anesthesiologist: Yifan Perez MD Sales Expert Home Theater: Ginny Murray MD Most Recent Vitals: 07/08/17 [...] [facility] Social History Substance Use [...] Zul[facility] Dolan [facility] [place] [address] (Wo rk) 05/28/2022 Laboratory Appointment Lab 05/28/2022 Office Visit Cardiology Zulma Dolan [place] [address] Liz Poole PA [facility] [place] [address] 06/10/2022 Office Visit Dermatology Laura Scherer MD [facility] [address] [place], [place] [address] (Wo rk) documented as [...] mg documented in this encounter Care Teams Manager Operations And Procurement Relationship Specialty Start Date End Date Lovely Vicente MD PCP - General 04/16/[address] [place] [address] documented as of this encounter
--- OUTSIDE RECORDS SUMMARY | 2022-04-13 08:16 | XMS_ITS | Encounter Summary ---
:1945 Author Organization [facility] Address [facility] [place] [address] Care Team Providers Name Role Phone Lovely Vicente MD Primary Care Provider Reason for Visit Auth/Cert Specialty Diagnoses / Procedures Referred By Contact Refer red To Contact Diagnoses STEMI (ST elevation myocardial infarction) NSTEMI STEMI Procedures CARDIAC CATHETERIZATION NAYE IPI Referral ID Status Reason Start Date Expiration Date Visits Requ ested Visits Authorized [id number] 1 1 Encounter Details Date Type Department Care Team Description 07/07/2017 Surgery Main Operating Room Yuan Webber, @ CABG, USING ARTERIAL Barbara Ocampo MD GRAFT;SINGLE ARTERIAL Hospital [facility] GRAFT (WRVU 33.75) [facility] DR Siddiqu[place] [address] SURGERY [phone] [place], [place] [address] (Wo rk) Social History Tobacco [...] in this encounter Discharge Summaries Martha Teague, CUSTOM GRINDER - 07/14/2017 9:38 AM EST Inpatient - Discharge Summary Patient Name: Gregory Hoang Patient Age: 72 y.o. Birthdate: 1945 Language: Citizen Of [place] Race: White Ethnicity: Not nor Admit Date: [...] , @ 1:20p Patient to follow-up with Clinical Documentation Clerk/heart failure team in one week. An appointment will be made for you. You may call [phone] Patient to follow-up with Cardiac Surgery, Dr. Yuan Webber, in ~ 4 weeks with CXR, EKG. Inpatient Provider Contact Information: [facility]iac [facility] [address] FAX [phone] Discharge Diagnoses (Hospital Problems) Primary Diagnoses: CAD [...] SNARE performed by Nohemi Jaimes MD at [facility] ENDOSCOPY ??? PRO ENDOSCOPY W/VIDEO-ASST VEIN [...] by mouth daily. 90 tablet 3 07/05/2017 [id number] ??? ascorbic acid, vitamin C, (VITAMIN C) [...] Hospital Course: Gregory Hoang was admitted to [facility] on 07/05/2017 via the Cardiology Service. During his hospital course, he was taken emergently to the track repair laborer for an ongoing STEMI. An IABP [...] not take or discontinue any prescription or glvt-zuq-umunpfh medications without asking your doctor or pharmacist [...] day to have your insulin doses adjusted. [facility] Endocrine clinic office Discharge Instructions: Call your doctor if: You have a fever of greater than 101 degrees, shaking chills, if you develop redness or drainage from your incision sites, or if you have questions. Please call your surgeon's office if you have any discharge or drainage from your chest incision. Your surgeon, Dr. Yuan Webber and/or the Cardiac Surgery Physician Weld Technician Team may be reached at . [...] Dr. Yuan Webber. You may use a [place] Track or treadmill but avoid any pulling [...] friends, go to a movie, go to roman catholic, etc. Heavy activities: No hunting, skiing, jogging, snow shoveling, snowmobiling, lawn mowing, swimming, golf or tennis until after your return appointment with the surgeon. Do not ride motorcycles, CAPNIA's tractors or horses. Avoid the use of [...] , @ 1:20p Patient to follow-up with Clinical Documentation Clerk/heart failure team in one week. Appointment will be made for you. You may call [phone] Patient to follow-up with Cardiac Surgery, Dr. Yuan Webber, in ~ 4 weeks with CXR, EKG. Cardiac Rehabilitation: Gregory Hoang was seen today regarding participation in the outpatient Phase 2 Cardiac Rehabilitation at [facility]. The patient agrees to a referral to this program. The referral will be sent at discharge and the patient should be contacted by the Program within 1- 2 weeks from discharge. ?? Future Appointments and Orders Future Appointments Provider Department Dept Phone 09/07/2017 3:00 PM LAB, THREE L Lab 3L [facility] [phone] 09/07/2017 4:00 PM Luz Prescott MD Endocrinology at [place] [phone] Future Orders Complete By Expires EKG 12 Lead [EKG1 Custom] 08/14/2017 02/13/2018 Process Instructions: Scheduling Instructions: Questions: Which DH location will this be performed?: [place] Is a rhythm strip needed?: No If EKG Reason is Pre-op Evaluation, indicate diagnosis for surgery.: XR Chest PA & Lateral (Generic) [[id number] Custom] 08/14/2017 02/13/2018 Process Instructions: Scheduling Instructions: Questions: Where will study be performed?: [place] [facility] Portable exam?: Reason for exam and clinical history: CABG x 3 Other pertinent information: Stat read required?: Date of injury if applicable: Requested Time: Referral to Cardiac Rehab [GZJ074 Custom] As directed Process Instructions: If no progress note charted, please enter Clinical details in comments. Scheduling Instructions: Questions: My question or request is: s/p CABG. Cardiac rehab at [facility] Referral to Home Health - at DISCHARGE [BIP6369 CPT(R)] As directed Process Instructions: Scheduling Instructions: Comments: DOCUMENTATION FOR VNA SERVICES (INCLUDING THOSE PATIENTS WITH MEDICARE COVERAGE REQUIRING HOME VNA SERVICES AND/OR HOSPICE SERVICES) PATIENT'S LOCATION: Gregory Hoang [address] [place] [address] [place] [id number] (home) Telephone Information: Commissioned Security Officer's Name: self In discussion with the attending physician, it is certified that this patient is under their care and that they, or a Nurse Practitioner, or Physician Weld Technician who is working directly with them, [...] [facility] ([facility] [place] [facility]-is in [place] PHONE: [phone] FAX: [phone] RN orders: Cardiopulmonary assessment, incisional assessment, assess vital signs, assessment of rehab progress, medication management and effectiveness, home safety evaluation. Please draw INR if indicated and send result to:Dr Vicente [phone] PT ORDERS: Continue rehab for endurance, gait stability and strength with mobility and transfers. Home safety evaluation. Home exercise program if appropriate. Start of Care Date:24-48 hours after discharge SPECIAL INSTRUCTIONS: For any follow up questions, needs, or issues please call the Cardiac Surgery Office at [phone] FOR MEDICARE ONLY: (please delete this section [...] Questions: Agency name and contact information: [facility] Patient location post discharge: home What services are requested: Registered Nurse Physical Therapy Start date: Responsible MD post discharge contact info: PCP Arrangements for VNA/home care: As above. VN RN OR PCP TO PLEASE REMOVE CHEST TUBE SUTURES ON OR AFTER 07/17/2017 Signed: Martha Teague APRN [facility]iac [facility] [address] FAX [phone] Date: 07/14/2017 CC: MD Ivania Cr Betsy, PA [address] [place] [phone] documented in this encounter Discharge Instructions Discharge [...] day to have your insulin doses adjusted. [facility] Endocrine clinic office Patient InstructionsStMartha mcdonald APRN [...] not take or discontinue any prescription or oaqq-dkn-tzbslrn medications without asking your doctor or pharmacist [...] day to have your insulin doses adjusted. [facility] Endocrine clinic office ? Discharge Instructions: ?? Call your doctor if: You have a fever of greater than 101 degrees, shaking chills, if you develop redness or drainage from your incision sites, or if you have questions. Please call your surgeon's office if you have any discharge or drainage from your chest incision. Your surgeon, Dr. Yuan Webber and/or the Cardiac Surgery Physician Weld Technician Team may be reached at . [...] Dr. Yuan Webber. You may use a [place] Track or treadmill but avoid any pulling [...] friends, go to a movie, go to roman catholic, etc. ?? Heavy activities: No hunting, skiing, jogging, snow shoveling, snowmobiling, lawn mowing, swimming, golf or tennis until after your return appointment with the surgeon. Do not ride motorcycles, CAPNIA's tractors or horses. Avoid the use of [...] @ 1:20p ?? Patient to follow-up with Clinical Documentation Clerk/heart failure team in one week. An appointment has been made for you, you can call [phone] ?? Patient to follow-up with Cardiac Surgery, Dr. Yuan eWbber, in ~ 4 weeks with CXR, EKG. ? Cardiac Rehabilitation: Gregory Hoang??was seen today regarding participation in the outpatient Phase 2 Cardiac Rehabilitation at [facility]. ?? The patient agrees to a referral to this program.? The referral will be sent at discharge and the patient should be contacted by the Program within 1- 2 weeks from discharge. ? Future Appointments and Orders Future Appointments Provider Department Dept Phone ?? 09/07/2017 3:00 PM LAB, THREE L Lab 3L [facility] [phone] ?? 09/07/2017 4:00 PM Luz Prescott MD Endocrinology at [place] [phone] Future Orders Complete By Expires ?? EKG 12 Lead [EKG1 Custom] 08/14/2017 02/13/2018 ?? Process Instructions: ? Scheduling Instructions: ? Questions: ? Which location will this be performed?: [place] ?? Is a rhythm strip needed?: No ?? If EKG Reason is Pre-op Evaluation, indicate diagnosis for surgery.: ?? XR Chest PA & Lateral (Generic) [[id number] Custom] 08/14/2017 02/13/2018 ?? Process Instructions: ? Scheduling Instructions: ? Questions: ? Where will study be performed?: [place] [facility] ?? Portable exam?: ?? Reason for exam and clinical history: CABG x 3 ?? Other pertinent information: ?? Stat read required?: ?? Date of injury if applicable: ?? Requested Time: ?? Referral to Cardiac Rehab [[id number] Custom] As directed ? Process Instructions: ?? If no progress note charted, please enter Clinical details in comments. ?? Scheduling Instructions: ? Questions: ? My question or request is: s/p CABG. Cardiac rehab at [facility] ? Arrangements for VNA/home care: [...] RN - 07/14/2017 2:34 PM EST The patient/business center representative has been provided a list of Home Health Agencies/DME vendors which serve their preferred geographic area. A letter describing our affiliations was reviewed with them and theywere educated about their right to choose where referrals are placed. Patient requests referral to [facility] PHONE: [phone] FAX: [phone] Expected date of discharge: 07/14 Referral routed to the Maintenance Pipefitter for matching with agency/vendor and to provide [...] [phone] Results for GREOGRY HOANG ( ) as of 07/14/2017 11:09 [...] day to have your insulin doses adjusted. [facility] Endocrine clinic office Kathie Carrera APRN [facility] Endocrinology Diabetes Management Pager [phone] 20 minutes of this 35 minute visit was spent with the patient in counseling on diabetes and treatment plan, reviewing all glucose and insulin data as well as relevant laboratory results with the patient, and coordination of care on the inpatient unit including nursing and primary team. Zulma Power RN - 07/14/2017 10:30 AM EST The patient/business center representative has been provided a list of Home Health Agencies/DME vendors which serve their preferred geographic area. A letter describing our affiliations was reviewed with them and theywere educated about their right to choose where referrals are placed. Patient requests referral to : Yasmani Munguia ([facility] [place] [facility]-is in [place]) PHONE: [phone] FAX: [phone]. Expected date of discharge: 07/14/17 Referral routed to the Maintenance Pipefitter for matching with agency/vendor and to provide [...] hours. If BG remains greater than 240, uixcef53 units (no more than three times) &??call [...] Will continue to follow Katerin Azul APRN [facility] Endocrinology Diabetes Management Pager [phone] 15 minutes of this 25 minute visit [...] of infiltration/extravasation Discussed plan of care with MONORAIL CHARGER OPERATOR and RN. Elevate exrtemity and apply intermittent Warm compresses. Name of MD contacted Dr. Shaw Brown 07/13/2017 @ 0648 Name of RN contacted Ale Rangel RN Name of Pharmacist if consulted NA Name of Plastics MD ( if consulted) NA (Mandatory photo for infiltrations/ extravasations scoring a stage 2 or greater, but recommended forstage 1)( include measuring tape and identifier in the photo) TICKET TAKER CARING FOR THIS PATIENT WILL CONTINUE TO [...] measuring tape and identifier in the photo) TICKET TAKER CARING FOR THIS PATIENT WILL CONTINUE TO [...] to both infiltrates addressed by this typewriter repairer.All of MrMadiha Hoang's responses were entirely appropriate. Images of infiltrates attached here. L Martha Teague, CUSTOM GRINDER - 07/13/2017 8:01 AM EST Cardiac Surgery Progress Note: ID: [id number] 72 year old male POD#6 s/p CABGx3 [...] discharge. ?? I have met with the patient/business center representative to discuss discharge planning needs. I have provided the [facility], Office of Care Management letter from the Film Library Clerk pertaining to rehab referrals. I have also provided a letter describing our affiliations within the [facility] and educated them about their right to choose where referrals are placed. ?? I reviewed the different levels of rehab including SNF, swing, acute and LTAC with the patient/business center representative. ?? The patient/business center representative has been provided a list of facilities within their preferred geographic area. ?? I have requested that the patient/business center representative provide at least three choices for referral. ?? The patient/business center representative have requested referrals to: ?? [facility]. [facility] ?? 2. [facility] ?? 3. More to be entered ?? Expected date of discharge: 07/14 Note routed to Maintenance Pipefitter who will communicate referrals to facilities and [...] hours. If BG remains greater than 240, ylezjs42 units (no more than three times) & [...] hours. If BG remains greater than 240, ujhuea30 units (no more than three times) & call for new basal insulin orders. ??If less than 240 after two hours, give no insulin and resume prior schedule. Will continue to follow Katerin Azul APRN [facility] Endocrinology Diabetes Management Pager [phone] 20 minutes of this 35 minute visit was spent with the patient in counseling on diabetes and treatment plan, reviewing all glucose and insulin data as well as relevant laboratory results with the patient, and coordination of care on the inpatient unit including nursing and primary team. Makayla Stevenson APRN - 07/12/2017 9:52 AM EST Cardiac Surgery Progress Note: ID: [id number] 72 year old male POD#5 s/p CABGx3 [...] 7:18 PM EST Patient arrived from [facility]. VSS. MSI dressing pulled off with [...] hours. If BG remains greater than 240, nrqdve84 units (no more than three times) & [...] AM EST Cardiac Surgery Progress Note: ID: [id number] 72 year old male POD#4 s/p CABGx3 [...] hours. If BG remains greater than 240, dpojeu92 units (no more than three times) & [...] AM EST Cardiac Surgery Progress Note: ID: [id number] 72 year old male POD#3 s/p CABGx3 [...] Gas) No results found for: PHART, PO2ART, PPT3RNQ Assessment/Plan: 72 year old male POD#3 s/p [...] Mami Thao - 07/09/2017 6:29 PM EST Machine Ceramic Coater Encounter Note Patient Name: Gregory Hoang : [id number] MR#: [id number] Admit Date: 07/05/2017 4:20 PM Hospital Day 4 days Narrative: Patient was sitting in chair, hugging heart pillow, opened his eyes, nodding to come into room Assessment: Patient was sleepy. Intervention and Outcome: Introduced political reporter services and patient reached his hand out in appreciation. Follow-up: Machine Ceramic Coater remains available for support. Time in Direct [...] 10:45 AM EST Report given to staff field engineer to cover care Maddison Cee PA - 07/09/2017 9:00 AM EST Cardiac Surgery Progress Note: ID: [id number] 72 year old male POD#2 s/p CABGx3 [...] completed shifts: In: 7977.4 [I.V.:7477.4; Other:500] Out: 1575 [Urine:3000; Other:615] I- 4 L O- 2.7 [...] Attending Surgeon on rounds. Signed: STEPHANIE Iqbal [facility] Section of Cardiac Surgery Date: 07/09/2017 [...] when IABP d/c'ed. Gretchen Carolina, PT Pager [phone] Maddison Cee PA - 07/08/2017 11:27 AM EST Cardiac Surgery Progress Note: ID: [id number] 72 year old male POD#1 s/p CABGx3 [...] Attending Surgeon on rounds. Signed: STEPHANIE Iqbal [facility] Section of Cardiac Surgery Date: 07/08/2017 [...] in place in R femoral. No hematoma. COPY CENTER OPERATOR- Intact Psych- Anxious Skin- Dry, no [...] intact. IABP in place in R femoral. COPY CENTER OPERATOR- Intact Psych- Anxious Skin- Dry, no [...] seen and examined on critical care rounds. Greogry Hoang is a 72 y.o. male [...] - hold metformin - f/u [facility] ?? #Home Meds - continue levothyroxine 175mcg [...] note for details. DAPHNE SHAHID MD Pager [phone] Jet Mckenna MD - 07/05/2017 6:48 PM EST Preliminary Cardiac Catheterization Procedure Note: Procedure(s) performed: Left heart cath, IABP insertion Access: Right REED REPAIRER-->8fr IABP A time-out was conducted prior to [...] effect. Heparin gtt maintained. Pt transferred to track repair laborer. documented in this encounter H&P Notes Daphne Shahid MD - 07/05/2017 6:08 PM EST CARDIOLOGY HISTORY & PHYSICAL EXAM Date of Admission: 07/05/2017 ( Hospital Day 0 days ) Responsible Attending: Daphne Shahid MD PCP: Lovely Vicente MD PCP#: [phone] Patient Active Problem List Diagnosis Code ??? [...] with heparin drip and transferred to [facility]. While there, continued sob, question of chest pain. Stat TTE showing WMA diffusely and EF around 20%. No significant valvular disease. Taken to the track repair laborer urgently for ongoing STEMI. [facility] Labs: INR 1.0 WBC 5.88 [...] monitor I/O - s/p lasix in the track repair laborer, redose to aim net neg 1L [...] Medicine, PGY-2 Cardiology S1, Team Pager # [phone] CARDIOLOGY ATTENDING NOTE Patient: Gregory Hoang Date [...] amenable for PCI. DAPHNE SHAHID MD Pager [phone] documented in this encounter Miscellaneous Notes Consult Note - Daphne Shahid MD - 07/14/2017 11:46 AM EST Heart Failure Service Inpatient Consult Note Gregory Hoang Date of : 1945 Age: 72 y.o. Today's date: 07/14/17 PCP: Lovely Vicente MD POST SPLITTER: None Place of Service: C451-A Reason for [...] SNARE performed by Nohemi Jaimes MD at [facility] ENDOSCOPY ??? PRO ENDOSCOPY W/VIDEO-ASST VEIN HARVEST, CABG Right 07/07/2017 ENDOSCOPIC HARVEST VEIN(S) FOR CABG (WRVU 0.31) performed by Yuan Webber MD at [facility] OR ??? PRO THYROIDECTOMY 03/28/2013 THYROIDECTOMY, TOTAL OR COMPLETE performed by Manny Mcknight MD at [facility] MAIN OR Outpt Meds: Current Outpatient [...] following studies: EKG 07/14/17: NSR 75 bpm, ELECTRICAL MAINTENANCE TECHNICIAN anterior infarct, LAD CXR 07/11/17: FINDINGS: Sternotomy wires. The patient has been extubated, left chest tube removed, and Elmore-Suzi catheter removed since the 07/07/2017 study. Atelectasis [...] was discussed with Zehra. Jaden Kelley MD Director Operating Room Pager [phone] CARDIOLOGY ATTENDING NOTE Patient: Gregory Hoang Date [...] heart failure clinic. DAPHNE SHAHID MD Pager [phone] Plan of Care - Alden Chavarria, PIG FARM MANAGER - 07/14/2017 11:35 AM EST Problem: [...] Disposition: home with assist Alden Jorge Genikevin, PIG FARM MANAGER Pager: [phone] Inpatient Physical Therapy Problem: Acute Rehab Services [...] sit/sit to supine -- Bed Mobility Goal, [place] Level supervision required -- Bed Mobility Goal, [...] - 3 days -- Gait Training Goal, [place] Level supervision required -- Gait Training Goal, [...] days -- Transfer Training Goal, Activity Type ugy-sk-ztlyp/ffnuk-oh-vpi;tfa-pd-qgmud/wvsve-of-irz;toilet -- Transfer Train Goal, [place] Level supervision required -- Transfer Training Goal, [...] keeping present for 2 days per family. Apprentice Funeral Director noted of frustrations, house keeping sent to room. Patient offered showered twice, refused. at bedside, frustrated that shower not complete, informed that patient had refused several times. requesting to see BLOOD BANK CUSTODIAN, paged sent to Martha, will come to bedside (middle of consult). not willing to wait, Martha notified that family had gone home. Encouraged to come for morning rounds a t 8am. Diabetes team at bedside - insulin adjustments made. Call cabello in reach. Continue to monitor. PLAN MOVING FORWARD: Ambulate, dressing changes BID, Please change drsg at 4am per Martha BLOOD BANK CUSTODIAN request. INDIVIDUALIZED FALL PREVENTION INTERVENTIONS: Patient-specific fall [...] levels on the lower side, 60ml of [place] juice given after a FS of 80. [...] Anticipated Discharge Disposition: home with assist Pager: [phone] CLARISSA SEGAL, PT 07/12/2017 Physical Therapy Rehabilitation [...] to sit/sit to supine Bed Mobility Goal, [place] Level supervision required Bed Mobility Goal, Additional Goal adheres to psternal precautions for transfer Goal: Gait Training Goal Stand Alone Therapy Goal Outcome: Ongoing (Interventions Implemented as Appropriate) 07/12/17 1225 Gait Training Goal Gait Training Goal, Date Established 07/12/17 Gait Training Goal, Time to Achieve 2 - 3 days Gait Training Goal, [place] Level supervision required Gait Training Goal, Assist [...] 3 days Transfer Training Goal, Activity Type tnc-ma-tjfvl/vycji-sx-zdw;ayt-cu-mhfgi/czihb-us-mey;toilet Transfer Train Goal, [place] Level supervision required Transfer Training Goal, Additional Goal adheres to sternal precautions during transfer Consult Note - Octavia Vaughn RN - 07/12/2017 10:50 AM EST [facility] CARDIAC REHABILITATION Gregory Hoang was seen today regarding participation in the outpatient Phase 2 Cardiac Rehabilitation at [facility]. The patient agrees to a [...] IV site, amio to other piv and HAND ETCHER HELPER at bedside to help assess, IV removed. [...] staff, he stood and marched in place. Worth weak, wanting to sit back down. Remained [...] Health/Prescription Coverage: Primary Insurance: MEDICARE Secondary Insurance: [employer] [place] Prescription Coverage: yes Preferred Pharmacy: [facility] [place] Other: none Primary Care Provider: Lovely Vicente MD [phone] Patient/Caregiver Goals of Treatment:live and get my breath back Potential Needs for Transition of Care: Rehab/SNF: [facility] Home Health: NA DME: TBD Dialysis: na Community Resources: available Transportation: yes Other: none Anticipated Barriers to Discharge/Special Considerations: none Plan: Likely SNF Rehab before home A member of the Care Management team will continue to monitor progress, follow for continuity of care and assist with transition of care planning. ERLIN Weiss Pager: [phone] Consult Note - Katerin Azul RN - [...] management and to provide a review of oysterman diabetes care. Diabetes History: Gregory Hoang has [...] patient W/E coverage, Dr. Jeane Tatum, pager [phone] Katerin Azul APRN Endocrinology Diabetes Management Pager [phone] Plan of Care - Walt Stephanie Wyatt [...] Webber MD - 07/07/2017 6:27 PM EST [facility] Operative Note Patient Name: Gregory Hoang : [id number] MR#: [id number] Case Date: 07/07/2017 Surgeon: Surgeon(s) and Role: * Yuan Webber MD - Primary * Michael Drake PA - Physician Weld Technician * Linda Flores PA - Physician Weld Technician Preoperative diagnosis: 3VD Postoperative diagnosis: CAD, [...] Operative Note Patient Name: Gregory Hoang : [id number] MR#: [id number] Case Date: 07/07/2017 Surgeon: Surgeon(s) and Role: * Yuan Webber MD - Primary * Michael Drake PA - Physician Weld Technician * Linda Flores PA - Physician Weld Technician Preoperative diagnosis: 3VD Postoperative diagnosis: CAD, [...] code status: Full Code Katty Hahn, MS3 [facility] of [facility] Cardiology S1 (Pager [phone]) Plan of Care - Emelia Ibarra RN [...] SETUP performed by Manny Mcknight MD at [facility] MAIN OR ??? PRO COLONOSCOPY, REMV LESN, SNARE 01/16/2014 COLONOSCOPY, POLYPECTOMY, REMOVAL LESION BY SNARE performed by Nohemi Jaimes MD at [facility] ENDOSCOPY ??? PRO THYROIDECTOMY 03/28/2013 THYROIDECTOMY, TOTAL OR COMPLETE performed by Manny Mcknight MD at [facility] MAIN OR Social History: Social History [...] with other involved physicians Yuan Webber MD [phone] Med Student Progress Note - Katty Hahn [...] or BiPAP - s/p lasix in the track repair laborer, was net -1.5L - s/p plavix [...] Dispo: CVCC Katty Hahn, M3 [facility] Cardiology S1 (Pager [phone]) Plan of Care - Stephanie Godoy RN - 07/06/2017 5:00 AM EST Problem: Patient Care Overview Goal: Plan of Care Review 07/06/17 [id number] Coping/Psychosocial Plan Of Care Reviewed With patient;family [...] in urinal without difficulty. Lasix given in track repair laborer, 1.4 L out at this time. [...] Dolan MD [facility] [address] [place] [address] (Wo rk) 05/28/2022 Laboratory Appointment Lab 05/28/2022 Office Visit Cardiology Zulma Dolan MD [facility] [place] [address] Liz Poole PA [facility] [place] [address] 06/10/2022 Office Visit Dermatology Laura Scherer MD [facility] [address] [place], [place] [address] (Wo rk) Scheduled Orders Name [...] procedure are i n the results section. 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 TYPE AND SCREEN Routine 07/06/2017 12:00 ([facility]/SHANDA) PM EST APTT STAT 07/06/2017 11:24 Results [...] Routine 07/06/2017 8:10 Results f or this ([facility]) AM EST procedure are i n the [...] Routine 07/06/2017 2:20 Results f or this ([facility]) AM EST procedure are i n the [...] Routine 07/05/2017 8:20 Results f or this ([facility]) PM EST procedure are [...] Timed 07/05/2017 4:55 Results f or this ([facility]) PM EST procedure are [...] 2017 EXAMINATION: XR CHEST PA AND LATERAL (brotips NERIC) CLINICAL HISTORY: CABG x 3 TECHNIQUE: [...] Teague APRN IMG DX ORDERABLES SCAN DOC: CLINIC MD ASSOCIATE (07/15/2017 12:00 AM EST) Narrative 07/15/2017 [...] 186 65 - 199 [place] mg/dL [facility] Comment: Supplemental [...] Address City/State/ZIP Code Phon e Number [address] POCT Glucose (07/14/2017 7:52 AM EST) athologist Signature POC Glucose 126 65 - 199 [facility] mg/dL [facility] Comment: [...] Address City/State/ZIP Code Phon e Number [address] (ABNORMAL) Prothrombin Time (07/14/2017 4:46 AM EST) athologist Signature PT 26.4 (H) 11.8 - 14.0 [facility] LABORATORY INR 2.4 (H) 0.9 [...] Address City/State/ZIP Code Phon e Number [address] Potassium (07/14/2017 4:46 AM EST) athologist Signature Potassium 4.3 3.5 - 5.0 [facility] mmol/L [facility] Comment: Please note: ??Patients [...] Address City/State/ZIP Code Phon e Number [address] POCT Glucose (07/14/2017 4:34 AM EST) athologist Signature POC Glucose 115 65 - 199 [facility] mg/dL [facility] Comment: Supplemental [...] City/[facility]/ZIP Code Phon e Number [address] POCT Glucose (07/13/2017 11:33 PM EST) athologist Signature POC Glucose 132 65 - 199 [facility] mg/dL [facility] Comment: Supplemental [...] City/[facility]/ZIP Code Phon e Number [address] POCT Glucose (07/13/2017 9:25 PM EST) athologist Signature POC Glucose 121 65 - 199 [facility] mg/dL [facility] Comment: Supplemental [...] Address City/State/ZIP Code Phon e Number [address] POCT Glucose (07/13/2017 4:55 PM EST) P athologist Signature POC Glucose 79 65 - 199 [place] mg/dL [facility] Comment: Supplemental [...] Address City/State/ZIP Code Phon e Number [address] POCT Glucose (07/13/2017 11:16 AM EST) athologist Signature POC Glucose 163 65 - 199 [place] mg/dL [facility] Comment: Supplemental [...] Address City/State/ZIP Code Phon e Number [address] POCT Glucose (07/13/2017 8:07 [...] City/[facility]/ZIP [place] [address] (ABNORMAL) Prothrombin Time (07/13/2017 4:26 AM EST) P athologist Signature PT 20.8 (H) 11.8 - 14.0 [facility] LABORATORY INR 1.8 (H) 0.9 [...] City/[facility]/ZIP [place] [address] (ABNORMAL) Basic Metabolic Panel (non-fasting) (07/13/2017 4:26 AM EST) P athologist Signature Glucose Lvl 95 65 - 199 [facility] mg/dL [facility] Comment: [...] mmol/L [facility] Calcium 7.7 (L) 8.5 - 10.5 mg/dL [facility] Estimated GFR 60 >=60 [facility] Comment: The reported eGFR should be multiplied b y 1.2 for patients. The MDRD is not an appropriate measure o f renal function for patients with body mass extremes or in patients with acute kidney failure. http://[employer]/DHnkdep http://[employer]/DHMCnkf Specimen Anatomical Collection Method Collection Time Receive d Time (Source) Location / / Volume Laterality Blood specimen 07/13/2017 4:26 AM 017 4:46 (specimen) EST AM EST Resulting Agency Comment Spec In Lab Makayla Wilson APRN CHEMISTRY ORDERABLES Performing Organization Address City/[facility]/ZIP Code Phon e Number [address] POCT Glucose (07/13/2017 3:52 AM EST) P athologist Signature POC Glucose 93 65 - 199 [facility] mg/dL [facility] Comment: [...] Address City/State/ZIP Code Phon e Number [address] POCT Glucose (07/13/2017 12:21 AM EST) athologist Signature POC Glucose 80 65 - 199 [place] mg/dL [facility] Comment: Supplemental [...] Address City/State/ZIP Code Phon e Number [address] POCT Glucose (07/12/2017 8:22 PM EST) athologist Signature POC Glucose 119 65 - 199 [facility] mg/dL [facility] Comment: Supplemental [...] Address City/State/ZIP Code Phon e Number [address] POCT Glucose (07/12/2017 4:02 PM EST) athologist Signature POC Glucose 114 65 - 199 [place] mg/dL [facility] Comment: Supplemental [...] Address City/State/ZIP [place] [address] POCT Glucose (07/12/2017 11:28 AM EST) athologist Signature POC Glucose 164 65 - 199 [facility] mg/dL [facility] Comment: Supplemental [...] Address City/State/ZIP Code Phon e Number [address] POCT Glucose (07/12/2017 7:34 AM EST) athologist Signature POC Glucose 109 65 - 199 [facility] mg/dL [facility] Comment: Supplemental [...] Address City/State/ZIP [place] [address] (ABNORMAL) Basic Metabolic Panel (non-fasting) (07/12/2017 4:11 AM EST) athologist Signature Glucose Lvl 92 65 - 199 [facility] mg/dL [facility] Comment: Diabetes: >=200 mg/dL plus symp toms BUN 31 (H) 10 - 20 mg/dL [facility] Creatinine 1.23 0.80 - 1.50 [...] HOSPITAL LABORATORY Estimated GFR 58 (L) >=60 [facility] Comment: The reported eGFR should be multiplied b y 1.2 for patients. The MDRD is not an appropriate measure o f renal function for patients with body mass extremes or in patients with acute kidney failure. http://[employer]/DHnkdep http://[employer]/DHMCnkf Specimen Anatomical Collection Method Collection Time Receive d Time (Source) Location / / Volume Laterality Blood specimen 07/12/2017 4:11 AM 017 8:57 (specimen) EST AM EST Resulting Agency Comment Spec In Lab Makayla Katie QUINONES CHEMISTRY ORDERABLES Performing Organization Address City/State/[place] [address] (ABNORMAL) Prothrombin Time (07/12/2017 4:11 AM EST) P athologist Signature PT 15.4 (H) 11.8 - 14.0 [facility] LABORATORY INR 1.2 (H) 0.9 [...] City/[facility]/ZIP [place] [address] Potassium (07/12/2017 4:11 AM EST) athologist Signature Potassium 3.8 3.5 - 5.0 [facility] mmol/L [facility] Comment: Please note: ??Patients [...] City/[facility]/ZIP [place] [address] POCT Glucose (07/12/2017 4:10 AM EST) athologist Signature POC Glucose 90 65 - 199 [facility] Comment: Supplemental [...] City/[facility]/ZIP [place] [address] POCT Glucose (07/11/2017 11:57 PM EST) athologist Signature POC Glucose 98 65 - 199 [facility] mg/dL [facility] Comment: Supplemental [...] Address City/State/ZIP [place] [address] POCT Glucose (07/11/2017 8:32 PM EST) P athologist Signature POC Glucose 146 65 - 199 [facility] mg/dL [facility] Comment: [...] Address City/State/Z[place] [address] XR Chest PA & [...] e xtubated, left chest tube removed, and Elmore-Suzi catheter removed since the study. Atelectasis at [...] e xtubated, left chest tube removed, and Elmore-Suzi catheter removed since the study. Atelectasis at [...] Glucose 223 (H) 65 - 199 [facility] mg/dL [facility] Comment: Supplemental [...] City/[facility]/ZIP Code Phon e Number [address] POCT Glucose (07/11/2017 11:55 AM EST) athologist Signature POC Glucose 176 65 - 199 [facility] mg/dL [facility] Comment: Supplemental [...] City/[facility]/ZIP [place] [address] POCT Glucose (07/11/2017 7:53 AM EST) athologist Signature POC Glucose 189 65 - 199 [facility]/dL [facility] Comment: Supplemental [...] City/[facility]/ZIP Code Phon e Number [address] POCT Glucose (07/11/2017 4:22 AM EST) athologist Signature POC Glucose 151 65 - 199 [facility] mg/dL [facility] Comment: Supplemental [...] City/[facility]/ZIP Code Phon e Number [address] Potassium (07/11/2017 2:20 AM EST) athologist Signature Potassium 4.5 3.5 - 5.0 [facility] mmol/L [facility] Comment: Please note: ??Patients [...] City/[facility]/ZIP Code Phon e Number [address] POCT Glucose (07/11/2017 12:17 AM EST) athologist Signature POC Glucose 162 65 - 199 [place] mg/dL [facility] Comment: Supplemental ranges: <140 mg/dL before meals <180 mg/dL all other times of the day Specimen Anatomical Collection Method Collection Time Receive d Time (Source) Location / / Volume Laterality Blood specimen 07/11/2017 12:17 7 (specimen) AM EST 12:17 AM EST Yuan Webber MD POINT OF CARE TEST ORDERABLE S Performing Organization Address [place]/[facility]/ZIP Code Phon e Number [address] POCT Glucose (07/10/2017 8:47 PM EST) athologist Signature POC Glucose 191 65 - 199 [place] mg/dL [facility] Comment: Supplemental [...] [facility]/ZIP Code Ph[place] [address] POCT Glucose (07/10/2017 4:06 PM EST) athologist Signature POC Glucose 131 65 - 199 [place] mg/dL [facility] Comment: Supplemental [...] Address City/State/ZIP Code Phon e Number [address] POCT Glucose (07/10/2017 3:08 PM EST) athologist Signature POC Glucose 151 65 - 199 [facility] mg/dL [facility] Comment: Supplemental [...] Address City/State/ZIP Code Phon e Number [address] POCT Glucose (07/10/2017 2:25 PM EST) athologist Signature POC Glucose 146 65 - 199 [facility] mg/dL [facility] Comment: Supplemental [...] Address City/State/ZIP Code Phon e Number [address] POCT Glucose (07/10/2017 1:23 PM EST) athologist Signature POC Glucose 166 65 - 199 [place] mg/dL [facility] Comment: Supplemental [...] Address City/State/ZIP Code Phon e Number [address] POCT Glucose (07/10/2017 11:52 AM EST) P athologist Signature POC Glucose 157 65 - 199 [place] mg/dL [facility] Comment: Supplemental [...] Address City/State/ZIP Code Phon e Number [address] POCT Glucose (07/10/2017 11:01 AM EST) athologist Signature POC Glucose 158 65 - 199 [facility] mg/dL [facility] Comment: Supplemental [...] Address City/State/ZIP Code Phon e Number [address] POCT Glucose (07/10/2017 9:54 AM EST) athologist Signature POC Glucose 160 65 - 199 [place] mg/dL [facility] Comment: Supplemental [...] Address City/State/ZIP [place] [address] POCT Glucose (07/10/2017 8:58 AM EST) athologist Signature POC Glucose 183 65 - 199 [place] mg/dL [facility] Comment: Supplemental [...] Address City/State/ZIP Code Phon e Number [address] POCT Glucose (07/10/2017 8:01 AM EST) athologist Signature POC Glucose 173 65 - 199 [place] mg/dL [facility] Comment: Supplemental [...] Address City/State/ZIP Code Phon e Number [address] POCT Glucose (07/10/2017 7:05 AM EST) athologist Signature POC Glucose 166 65 - 199 [place] mg/dL [facility] Comment: Supplemental [...] Address City/State/ZIP Code Phon e Number [address] POCT Glucose (07/10/2017 6:00 AM EST) P athologist Signature POC Glucose 162 65 - 199 [facility] mg/dL [facility] Comment: [...] Organization Address City/State/[place] [address] (ABNORMAL) Differential, Automated (07/10/2017 4:28 AM EST) Patholo gist Method Time Signature Neutrophils % 87.9 % [facility] Neutr Abs (ANC) 10.70 (H) 1.70 - [facility] 6.10 [facility] x10(3)/[facility] LABORATORY Lymphocytes % 3.9 % [facility] Lymphocytes Abs 0.5 (L) 0.9 - 3.2 [facility] x10(3)/[facility] LABORATORY Monocytes % 7.0 % [facility] Monocyte Abs 0.8 0.3 - 0.9 [facility] x10(3)/[facility] LABORATORY Eosinophils % 0.3 % [facility] Eosinophils Abs 0.0 0.0 - 0.4 [facility] x10(3)/[facility] LABORATORY Basophils % 0.2 % [facility] Basophils Abs 0.0 0.0 - 0.1 [facility] x10(3)/[facility] LABORATORY Immature Gran % 0.70 % [facility] [...] Organization Address City/State/[place] [address] (ABNORMAL) Hemogram (07/10/2017 4:28 AM EST) Analysis Performed At Patho logist Time Signature WBC 12.2 (H) 4.0 - 9.5 [facility] x10(3)/[facility] LABORATORY RBC 3.31 (L) 4.58 - [facility] 5.54 [facility] x10(6)/[facility] LABORATORY Hemoglobin 9.8 (L) 13.7 - [facility] 16.5 gm/dL [facility] Hematocrit 30.0 (L) 40.5 - [facility] 48.5 % [facility] MCV 90.6 82.9 - [facility] 93.1 [facility] LABORATORY MCH 29.6 27.5 - [facility] 32.1 pg [facility] MCHC 32.7 32.0 - [facility] 35.7 gm/dL [facility] Platelets 135 (L) 145 - 357 [facility] x10(3)/[facility] LABORATORY RDWSD 50.8 (H) 36.0 - [facility] 45.0 [facility] LABORATORY RDWCV 15.4 (H) 11.4 - [facility] 13.8 % [facility] MPV 10.0 7.6 - 12.9 [facility] LABORATORY nRBC % Auto 0.0 % [facility] nRBC Abs Auto 0.000 0.000 - [facility] 0.000 [facility] x10(3)/[facility] LABORATORY Specimen Anatomical Collection Method Collection Time Receive d Time (Source) Location / / Volume Laterality Blood specimen 07/10/2017 4:28 AM 017 4:36 (specimen) EST AM EST Resulting Agency Comment Spec In Lab Yuan Webber MD HEMATOLOGY ORDERABLES Performing Organization Address City/[facility]/[place] [address] (ABNORMAL) Basic Metabolic Panel (non-fasting) (07/10/2017 4:28 AM EST) P athologist Signature Glucose Lvl 178 65 - 199 [facility] mg/dL [facility] Comment: [...] mmol/L [facility] Calcium 7.4 (L) 8.5 - 10.5 mg/dL [facility] Estimated GFR 60 >=60 [facility] Comment: The reported eGFR should be multiplied b y 1.2 for patients. The MDRD is not an appropriate measure o f renal function for patients with body mass extremes or in patients with acute kidney failure. http://[employer]/DHnkdep http://[employer]/DHMCnkf Specimen Anatomical Collection Method Collection Time Receive d Time (Source) Location / / Volume Laterality Blood specimen 07/10/2017 4:28 AM 017 4:36 (specimen) EST AM EST Resulting Agency Comment Spec In Lab Yuan Webber MD CHEMISTRY ORDERABLES Performing Organization Address City/[facility]/ZIP [place] [address] POCT Glucose (07/10/2017 4:26 AM EST) P athologist Signature POC Glucose 176 65 - 199 [facility] mg/dL [facility] Comment: Supplemental [...] Address City/State/ZIP Code [place] [address] (ABNORMAL) POCT Glucose (07/10/2017 3:06 AM EST) athologist Signature POC Glucose 204 (H) 65 - 199 [facility] mg/dL [facility] Comment: Supplemental [...] City/State/ZIP Code Ph[place] [address] (ABNORMAL) POCT Glucose (07/10/2017 2:10 AM EST) P athologist Signature POC Glucose 203 (H) 65 - 199 [place] [place] mg/dL [facility] Comment: Supplemental [...] Address City/State/ZIP Code Phon e Number [address] POCT Glucose (07/10/2017 1:09 AM EST) P athologist Signature POC Glucose 196 65 - 199 [facility] mg/dL [facility] Comment: Supplemental [...] Address City/State/ZIP Code Phon e Number [address] POCT Glucose (07/10/2017 12:10 AM EST) athologist Signature POC Glucose 173 65 - 199 [facility] mg/dL [facility] Comment: Supplemental [...] Address City/State/ZIP Code Phon e Number [address] POCT Glucose (07/09/2017 11:01 PM EST) athologist Signature POC Glucose 140 65 - 199 [place] [facility] mg/dL [facility] Comment: Supplemental [...] Address City/State/ZIP Code Phon e Number [address] POCT Glucose (07/09/2017 10:05 PM EST) athologist Signature POC Glucose 144 65 - 199 [place] mg/dL [facility] Comment: Supplemental [...] Address City/State/ZIP Code Phon e Number [address] POCT Glucose (07/09/2017 9:31 PM EST) athologist Signature POC Glucose 121 65 - 199 [facility] mg/dL [facility] Comment: Supplemental [...] Address City/State/ZIP Code Phon e Number [address] POCT Glucose (07/09/2017 9:03 PM EST) athologist Signature POC Glucose 98 65 - 199 [place] mg/dL [facility] Comment: Supplemental [...] Address City/State/ZIP [place] [address] POCT Glucose (07/09/2017 8:09 PM EST) athologist Signature POC Glucose 117 65 - 199 [place] mg/dL [facility] Comment: Supplemental [...] Address City/State/ZIP Code Phon e Number [address] POCT Glucose (07/09/2017 5:40 PM EST) athologist Signature POC Glucose 155 65 - 199 [place] [facility] mg/dL [facility] Comment: Supplemental [...] Address City/State/ZIP Code Phon e Number [address] POCT Glucose (07/09/2017 4:24 PM EST) athologist Signature POC Glucose 164 65 - 199 [place] mg/dL [facility] Comment: Supplemental [...] Address City/State/ZIP Code Phon e Number [address] POCT Glucose (07/09/2017 3:19 PM EST) athologist Signature POC Glucose 166 65 - 199 [place] mg/dL [facility] Comment: Supplemental [...] Address City/State/ZIP Code Phon e Number [address] POCT Glucose (07/09/2017 2:26 PM EST) athologist Signature POC Glucose 179 65 - 199 [facility] mg/dL [facility] Comment: Supplemental [...] Address City/State/ZIP [place] [address] (ABNORMAL) POCT Glucose (07/09/2017 1:29 PM EST) athologist Signature POC Glucose 210 (H) 65 - 199 [facility] mg/dL [facility] Comment: Supplemental [...] Address City/State/ZIP [place] [address] POCT Glucose (07/09/2017 12:20 PM EST) P athologist Signature POC Glucose 172 65 - 199 [place] [facility] mg/dL [facility] [facility] Comment: Supplemental [...] Address City/State/ZIP Code Phon e Number [address] POCT Glucose (07/09/2017 11:24 AM EST) athologist Signature POC Glucose 156 65 - 199 [place] [facility] mg/dL [facility] Comment: Supplemental [...] Address City/State/ZIP Code Phon e Number [address] POCT Glucose (07/09/2017 11:11 AM EST) athologist Signature POC Glucose 172 65 - 199 [place] mg/dL [facility] Comment: Supplemental [...] Address City/State/ZIP Code Phon e Number [address] POCT Glucose (07/09/2017 10:08 AM EST) athologist Signature POC Glucose 176 65 - 199 [place] [facility] mg/dL [facility] Comment: Supplemental [...] Address City/State/ZIP [place] [address] POCT Glucose (07/09/2017 8:02 AM EST) P athologist Signature POC Glucose 178 65 - 199 [facility] mg/dL [facility] Comment: [...] Address City/State/ZIP [place] [address] (ABNORMAL) BLOOD GAS 2 ARTERIAL (07/09/2017 5:37 AM EST) Analysis Performed At Patho logist Time Signature pH Art 7.36 7.35 - [facility] 7.45 [facility] pCO2 Art 38 35 - 45 [facility] mmHg [facility] pO2 Art 79 (L) 85 - 104 [facility] mmHg [facility] HCO3 Art 20.9 20.0 - [facility] 26.0 [facility] mmol/L [facility] BE Art -4.6 (L) -3.0 - 3.0 [facility] mmol/L [facility] Hgb Blood Gas 10.5 (L) 13.7 - [facility] 16.5 gm/dL [facility] O2HB Art 93.8 (L) 94.0 - [facility] 97.0 % [facility] COHB Art 0.3 % [place] [...] Blood 113 (H) 98 - 107 mmol/L [facility] Gluc Whole Bld 175 65 - 199 mg/dL [facility] Comment: Diabetes: >=200 mg/dL plus symp toms. Lactate WB 1.0 0.5 - 2.2 mmol/L [facility] FIO2 Art 40 % [facility] PF Ratio Art 198 [facility] Specimen Anatomical Collection Method Collection Time Receive d Time (Source) Location / / Volume Laterality Blood specimen 07/09/2017 5:37 AM 017 5:37 (specimen) EST AM EST Yuan Webber MD CHEMISTRY ORDERABLES Performing Organization Address City/State/[place] [address] POCT Glucose (07/09/2017 3:27 AM EST) P athologist Signature POC Glucose 192 65 - 199 [facility] mg/dL [facility] Comment: [...] Organization Address City/State/[place] [address] (ABNORMAL) Basic Metabolic Panel (non-fasting) (07/09/2017 2:30 AM EST) P athologist Signature Glucose Lvl 179 65 - 199 [facility] mg/dL [facility] Comment: Diabetes: >=200 mg/dL plus symp toms BUN 17 10 - 20 mg/dL [facility] Creatinine 1.34 0.80 - 1.50 [...] mmol/L [facility] Calcium 7.1 (L) 8.5 - 10.5 mg/dL [facility] Comment: result rechecked-JLK Estimated GFR 53 (L) >=60 [facility] Comment: The reported eGFR should be multiplied b y 1.2 for patients. The MDRD is not an appropriate measure o f renal function for patients with body mass extremes or in patients with acute kidney failure. [email or web address] [email or web address]/DHMCnkf Specimen Anatomical Collection Method Collection Time Receive d Time (Source) Location / / Volume Laterality Blood specimen Venous Draw / 07/09/2017 2:30 AM 2016 2:42 (specimen) Unknown EST AM EST Resulting Agency Comment Spec In Lab Yuan Webber MD CHEMISTRY ORDERABLES Performing Organization Address City/State/[place] [address] (ABNORMAL) Potassium (07/09/2017 2:30 AM EST) P athologist Signature Potassium 5.1 (H) 3.5 - 5.0 [facility] mmol/L [facility] Comment: Please note: ??Patients [...] City/[facility]/[place] [address] (ABNORMAL) Hemogram (07/09/2017 2:30 AM EST) Analysis Performed At Patho logist Time Signature WBC 12.5 (H) 4.0 - 9.5 [place] [facility] x10(3)/[facility] LABORATORY RBC 3.38 (L) 4.58 - [place] [facility] 5.54 [facility] x10(6)/[facility] LABORATORY Hemoglobin 10.1 (L) 13.7 - [place] [facility] 16.5 gm/dL [facility] Hematocrit 30.3 (L) 40.5 - [place] [facility] 48.5 % [facility] MCV 89.6 82.9 - [place] [facility] 93.1 [facility] LABORATORY MCH 29.9 27.5 - [place] [facility] 32.1 pg [facility] MCHC 33.3 32.0 - [place] [facility] 35.7 gm/dL [facility] Platelets 127 (L) 145 - 357 [place] [facility] x10(3)/[facility] LABORATORY RDWSD 49.3 (H) 36.0 - [place] [facility] 45.0 [facility] LABORATORY RDWCV 15.2 (H) 11.4 - [place] [facility] 13.8 % [facility] MPV 9.9 7.6 - 12.9 [facility] LABORATORY nRBC % Auto 0.0 % [facility] nRBC Abs Auto 0.000 0.000 - [place] DAVIS 0.000 [facility] x10(3)/[facility] LABORATORY Specimen Anatomical Collection Method Collection Time Receive d Time (Source) Location / / Volume Laterality Blood specimen 07/09/2017 2:30 AM 017 2:41 (specimen) EST AM EST Resulting Agency Comment Spec In Lab Yuan Webber MD HEMATOLOGY ORDERABLES Performing Organization Address City/State/ZIP Code Phon e Number [address] POCT Glucose (07/09/2017 2:10 AM EST) athologist Signature POC Glucose 169 65 - 199 [facility] Comment: Supplemental [...] Address City/State/ZIP Code Phon e Number [address] POCT Glucose (07/09/2017 1:01 AM EST) athologist Signature POC Glucose 173 65 - 199 [facility] Comment: Supplemental [...] Address City/State/ZIP Code Phon e Number [address] Blood culture (07/09/2017 12:40 AM EST) [facility] Clones Method Time Signature Blood Culture No growth [place] DAVIS at 5 days. [facility] Specimen Anatomical Collection Method Collection Time Receive d Time (Source) Location / / Volume Laterality Blood specimen STRUCTURE OF RIGHT 07/09/2017 12:40 3:58 (specimen) UPPER LIMB / AM EST AM EST Unknown Resulting Agency Comment Spec In Lab Yuan Webber MD MICROBIOLOGY - BLOOD ORDERAB LES Performing Organization Address City/[facility]/ZIP Code Phon e Number [address] Blood culture (07/09/2017 12:30 AM EST) [facility] Clones Method Time Signature Blood Culture No growth [place] DAVIS at 5 days. [facility] Specimen Anatomical Collection Method Collection Time Receive d Time (Source) Location / / Volume Laterality Blood specimen STRUCTURE OF LEFT 07/09/2017 12:30 06/25 3:59 (specimen) UPPER LIMB / AM EST AM EST Unknown Resulting Agency Comment Spec In Lab Yuan Webber MD MICROBIOLOGY - BLOOD ORDERAB LES Performing Organization Address City/[facility]/ZIP Code Phon e Number [address] (ABNORMAL) Urinalysis Microscopic Exam [...] /LPF [facility] Gran Cast UA 1 (H) <=0 /LPF [facility] Uric Ac Bianca Rare (A) None /HPF [facility] Specimen (Source) Anatomical Collection Method Collection Time Re ceived Time Location / / Volume Laterality Urine specimen 07/09/2017 12:05 7 obtained via AM EST 12:39 AM EST indwelling urinary catheter (specimen) Resulting Agency Comment Spec In Lab Yuan Webber MD URINE ORDERABLES Performing Organization Address City/State/ZIP Code Phon e Number [address] (ABNORMAL) Urinalysis with reflex Culture (07/09/2017 12:05 AM EST) Patholo gist Method Time Signature Glucose UA Negative Negative [facility] Protein UA 30 (A) Negative [facility]/dL [facility] Bilirubin UA Negative Negative [facility] mg/dL [facility] Comment: Clinical correlation required [...] [facility] Nitrite UA Negative Negative [facility] Leukocytes UA Negative Negative [facility] LABORATORY Appearance UA Hazy (A) Clear [facility] Spec [place] UA 1.025 1.002 - 1.030 [facility] Color UA Yellow Yellow [facility] Culture Reflexed No [facility] Specimen (Source) Anatomical Collection Method Collection Time Re ceived Time Location / / Volume Laterality Urine specimen 07/09/2017 12:05 7 obtained via AM EST 12:39 AM EST indwelling urinary catheter (specimen) Resulting Agency Comment Spec In Lab Yuan Webber MD URINE ORDERABLES Performing Organization Address City/State/ZIP Code Phon e Number [place] [id number] [facility] [address]ORY Drive POCT Glucose (07/08/2017 11:01 PM EST) P athologist Signature POC Glucose 191 65 - 199 [facility] mg/dL [facility] Comment: [...] Address City/State/ZIP [place] [address] POCT Glucose (07/08/2017 10:04 PM EST) P athologist Signature POC Glucose 198 65 - 199 [facility] mg/dL [facility] Comment: Supplemental [...] Address City/State/ZIP [place] [address] Prepare Albumin 5% in [...] Address City/State/ZIP Code Phon e Number [address] POCT Glucose (07/08/2017 8:28 PM EST) P athologist Signature POC Glucose 195 65 - 199 [facility]/dL [facility] Comment: Supplemental [...] City/[facility]/ZIP [place] [address] (ABNORMAL) POCT Glucose (07/08/2017 7:13 PM EST) P athologist Signature POC Glucose 220 (H) 65 - 199 [facility] Comment: Supplemental [...] City/[facility]/ZIP [place] [address] POCT Glucose (07/08/2017 5:04 PM EST) P athologist Signature POC Glucose 147 65 - 199 [facility]dL [facility] Comment: Supplemental [...] Address City/State/ZIP [place] [address] (ABNORMAL) BLOOD GAS 2 ARTERIAL (07/08/2017 4:13 PM EST) Analysis Performed At Patho logist Time Signature pH Art 7.38 7.35 - [facility] 7.45 [facility] pCO2 Art 36 35 - 45 [facility] LABORATORY pO2 Art 91 85 - 104 [facility]ATORY HCO3 Art 20.9 20.0 - [facility] 26.0 [facility] mmol/L [facility] BE Art -4.2 (L) -3.0 - 3.0 [facility] mmol/L [facility] Hgb Blood Gas 11.7 (L) 13.7 - [facility] 16.5 gm/dL [facility] O2HB Art 95.1 94.0 - [facility] 97.0 % [facility] COHB Art 0.6 % [place] [...] Blood 110 (H) 98 - 107 mmol/L [facility] Gluc Whole Bld 155 65 - 199 mg/dL [facility] Comment: Diabetes: >=200 mg/dL plus symp toms. Lactate WB 1.4 0.5 - 2.2 mmol/L [facility] FIO2 Art 40 % [facility] PF Ratio Art 228 [facility] Specimen Anatomical Collection Method Collection Time Receive d Time (Source) Location / / Volume Laterality Blood specimen 07/08/2017 4:13 PM 017 4:13 (specimen) EST PM EST Yuan Webber MD CHEMISTRY ORDERABLES Performing Organization Address City/State/[place] [address] POCT Glucose (07/08/2017 4:01 PM EST) athologist Signature POC Glucose 148 65 - 199 [place] mg/dL [facility] Comment: Supplemental [...] Address City/State/ZIP Code Phon e Number [address] POCT Glucose (07/08/2017 3:21 PM EST) athologist Signature POC Glucose 118 65 - 199 [place] [facility] mg/dL [facility] Comment: Supplemental [...] City/[facility]/ZIP Code Phon e Number [address] POCT Glucose (07/08/2017 2:01 PM EST) athologist Signature POC Glucose 129 65 - 199 [place] mg/dL [facility] Comment: Supplemental [...] Address City/State/ZIP [place] [address] POCT Glucose (07/08/2017 11:53 AM EST) athologist Signature POC Glucose 156 65 - 199 [facility] mg/dL [facility] Comment: Supplemental [...] Address City/State/ZIP Code Phon e Number [address] POCT Glucose (07/08/2017 11:04 AM EST) athologist Signature POC Glucose 181 65 - 199 [facility]dL [facility] Comment: Supplemental [...] City/[facility]/ZIP [place] [address] (ABNORMAL) POCT Glucose (07/08/2017 9:24 AM EST) athologist Signature POC Glucose 203 (H) 65 - 199 [facility] mg[facility]dL [facility] Comment: Supplemental [...] Address City/State/ZIP Code Phon e Number [address] APTT (07/08/2017 8:40 AM EST) athologist Signature PTT 33 25 - 35 sec [facility] Comment: The recommended therapeutic range for fu ll dose, unfractionated heparin at [facility] is 80 ? 114 seconds. The use [...] Address City/State/ZIP [place] [address] (ABNORMAL) Prothrombin Time (07/08/2017 8:40 AM EST) athologist Signature PT 15.6 (H) 11.8 - 14.0 [facility] [...] Address City/State/ZIP [place] [address] (ABNORMAL) POCT Glucose (07/08/2017 7:38 AM EST) athologist Signature POC Glucose 232 (H) 65 - 199 [facility] mg/dL [facility] Comment: [...] City/[facility]/ZIP [place] [address] (ABNORMAL) POCT Glucose (07/08/2017 7:07 AM EST) P athologist Signature POC Glucose 234 (H) 65 - 199 [place] [facility] mg/dL [facility] Comment: Supplemental [...] City/[facility]/ZIP [place] [address] (ABNORMAL) POCT Glucose (07/08/2017 6:04 AM EST) P athologist Signature POC Glucose 225 (H) 65 - 199 [place] [facility] mg/dL [facility] Comment: Supplemental [...] Address City/State/ZIP [place] [address] (ABNORMAL) POCT Glucose (07/08/2017 5:31 AM EST) P athologist Signature POC Glucose 216 (H) 65 - 199 [place] [facility] mg/dL [facility] Comment: Supplemental [...] Address City/State/ZIP [place] [address] (ABNORMAL) POCT Glucose (07/08/2017 4:52 AM EST) P athologist Signature POC Glucose 257 (H) 65 - 199 [facility] mg/dL [facility] Comment: [...] City/[facility]/ZIP [place] [address] (ABNORMAL) BLOOD GAS 2 ARTERIAL (07/08/2017 4:04 AM EST) Analysis Performed At Patho logist Time Signature pH Art 7.30 (L) 7.35 - [facility] 7.45 [facility] pCO2 Art 41 35 - 45 [facility] mmHg [facility] pO2 Art 83 (L) 85 - 104 [facility] LABORATORY HCO3 Art 19.6 (L) 20.0 - [facility] 26.0 [facility] mmol/L HOSPITAL LABORATORY BE Art -6.8 (L) -3.0 - 3.0 [facility] mmol/L [facility] Hgb Blood Gas 12.2 (L) 13.7 - [facility] 16.5 gm/dL [facility] O2HB Art 93.5 (L) 94.0 - [facility] 97.0 % [facility] COHB Art 0.4 % [place] [...] Whole Blood 107 98 - 107 mmol/L [facility] Gluc Whole Bld 274 (H) 65 - 199 mg/dL [facility] Comment: Diabetes: >=200 mg/dL plus symp toms. Lactate WB 4.4 (Critical) 0.5 - 2.2 mmol/L [facility] Comment: Noted by gyroscopic instrument mechanic. FIO2 Art 40 % [facility] PF Ratio Art 208 [facility] Specimen Anatomical Collection Method Collection Time Receive d Time (Source) Location / / Volume Laterality Blood specimen 07/08/2017 4:04 AM 017 4:04 (specimen) EST AM EST Daphne Shahid MD CHEMISTRY ORDERABLES Performing Organization Address City/[facility]/[place] [address] Scan, Peripheral Blood (07/08/2017 [...] City/[facility]/[place] [address] (ABNORMAL) Differential, Automated (07/08/2017 4:00 AM EST) [facility] Method Time Signature Neutrophils % 85.4 % [facility] Neutr Abs (ANC) 16.07 (H) 1.70 - [facility] 6.10 [facility] x10(3)/[facility] LABORATORY Lymphocytes % 3.5 % [facility] Lymphocytes Abs 0.6 (L) 0.9 - 3.2 [facility] x10(3)/[facility] LABORATORY Monocytes % 10.4 % [facility] Monocyte Abs 2.0 (H) 0.3 - 0.9 [facility] x10(3)/[facility] LABORATORY Eosinophils % 0.0 % [facility] Eosinophils Abs 0.0 0.0 - 0.4 [facility] x10(3)/[facility] LABORATORY Basophils % 0.1 % [facility] Basophils Abs 0.0 0.0 - 0.1 [facility] x10(3)/[facility] LABORATORY Immature Gran % 0.60 [...] Organization Address City/State/[place] [address] (ABNORMAL) Hemogram (07/08/2017 4:00 AM EST) Analysis Performed At Patho logist Time Signature WBC 18.8 (H) 4.0 - 9.5 [facility] x[facility](3[facility] LABORATORY RBC 4.00 (L) 4.58 - [facility]OSU 5.54 [facility] x10(6)/[facility] LABORATORY Hemoglobin 11.9 (L) 13.7 - [facility] 16.5 gm/dL [facility] Hematocrit 35.9 (L) 40.5 - [facility] 48.5 % [facility] MCV 89.8 82.9 - [facility] 93.1 [facility] LABORATORY MCH 29.8 27.5 - [place] [facility] 32.1 pg [facility] MCHC 33.1 32.0 - [facility] 35.7 gm/dL [facility] Platelets 232 145 - 357 [facility] x10(3)/[facility] LABORATORY RDWSD 47.6 (H) 36.0 - [facility] 45.0 [facility] LABORATORY RDWCV 14.5 (H) 11.4 - [place] [facility] 13.8 % [facility] MPV 9.5 7.6 - 12.9 [facility] nRBC % Auto 0.0 % [facility] nRBC Abs Auto 0.000 0.000 - [place] [facility] 0.000 [facility] x10(3)/[facility] LABORATORY Specimen Anatomical Collection Method Collection Time Receive d Time (Source) Location / / Volume Laterality Blood specimen 07/08/2017 4:00 AM 017 4:09 (specimen) EST AM EST Resulting Agency Comment Spec In Lab Yuan Webber MD HEMATOLOGY ORDERABLES Performing Organization Address City/State/[place] [address] (ABNORMAL) Electrolytes panel (07/08/2017 4:00 AM EST) P athologist Signature Sodium 139 135 - 145 [facility] mmol/L [facility] Potassium 4.7 3.5 - 5.0 [facility] mmol/L [facility] Comment: result rechecked-JLK Please [...] 15 mmol/L [facility] Specimen Anatomical Collection Method Collection Time Receive d Time (Source) Location / / Volume Laterality Blood specimen 07/08/2017 4:00 AM 017 4:10 (specimen) EST AM EST Resulting Agency Comment Spec In Lab Yuan Webber MD CHEMISTRY ORDERABLES Performing Organization Address City/State/[place] [address] (ABNORMAL) Cardiac Enzymes (LEB/CGP) (07/08/2017 4:00 AM EST) P athologist Signature Troponin-T 1.88 (H) 0.00 - [facility] 0.00 ng/mL [facility] Comment: The 99th percentile [...] additional sample may be indicated. Reference: Third Mary Alice Definition of Myocardial Infarction. Journal of the [place] [employer] 2012;60:1581-98 CK, Total 413 (H) 0 - 200 unit/L [facility] Comment: result rechecked-JLK Specimen Anatomical Collection Method Collection Time Receive d Time (Source) Location / / Volume Laterality Blood specimen 07/08/2017 4:00 AM 017 4:09 (specimen) EST AM EST Resulting Agency Comment Spec In Lab Yuan Webber MD CHEMISTRY ORDERABLES Performing Organization Address City/[facility]/ZIP Code Phon e Number [address] (ABNORMAL) Glucose, fasting (07/08/2017 4:00 AM EST) athologist Signature Glucose 287 (H) 65 - 99 [facility] Fasting mg/dL [facility] Comment: ?Fasting* Glucose Interpretive [...] Performing Organization Address City/[facility]/ZIP [facility] [place] [address] (ABNORMAL) Creatinine (07/08/2017 4:00 AM EST) Analysis Performed At Patho logist Time Signature Creatinine 1.55 (H) 0.80 - [facility] 1.[facility] mg/dL [facility] Estimated GFR 44 (L) >=60 [facility] Comment: The reported eGFR should be multiplied b y 1.2 for patients. The MDRD is not an appropriate measure o f renal function for patients with body mass extremes or in patients with acute kidney failure. [email or web address] [email or web address]/DHMCnkf Specimen Anatomical Collection Method Collection Time Receive d Time (Source) Location / / Volume Laterality Blood specimen 07/08/2017 4:00 AM 017 4:09 (specimen) EST AM EST Resulting Agency Comment Spec In Lab Yuan Webber MD CHEMISTRY ORDERABLES Performing Organization Address City/[facility] Phon e Number [address] BUN (07/08/2017 4:00 AM EST) P athologist Signature BUN 16 10 - 20 [facility] mg/dL [facility] Specimen Anatomical Collection Method Collection Time Receive d Time (Source) Location / / Volume Laterality Blood specimen 07/08/2017 4:00 AM 017 4:09 (specimen) EST AM EST Resulting Agency Comment Spec In Lab Yuan Webber MD CHEMISTRY ORDERABLES Performing Organization Address City/[facility] [place] [address] (ABNORMAL) POCT Glucose (07/08/2017 3:00 AM EST) P athologist Signature POC Glucose 273 (H) 65 - 199 [facility]dL [facility] Comment: Supplemental [...] Address City/State/ZIP [place] [address] (ABNORMAL) POCT Glucose (07/08/2017 1:57 AM EST) athologist Signature POC Glucose 288 (H) 65 - 199 [facility] mg/dL [facility] Comment: Supplemental [...] Address City/State/ZIP [place] [address] (ABNORMAL) POCT Glucose (07/08/2017 1:01 AM EST) athologist Signature POC Glucose 315 (H) 65 - 199 [facility] mg/dL [facility] Comment: Supplemental [...] Address City/State/ZIP [place] [address] (ABNORMAL) BLOOD GAS 2 ARTERIAL (07/08/2017 12:09 AM EST) athologist Signature pH Art 7.26 7.35 - [facility] (Critical) 7.45 [facility] Comment: Noted by gyroscopic instrument mechanic. pCO2 Art 41 35 - 45 mmHg [facility] pO2 Art 96 85 - 104 mmHg [facility] HCO3 Art 17.7 (L) 20.0 - 26.0 mmol/L [facility]OR[facility] BE Art -9.4 (L) -3.0 - 3.0 mmol/L [facility] Hgb Blood Gas 12.4 (L) 13.7 - 16.5 gm/dL [facility] O2HB Art 94.7 94.0 - 97.0 % [facility] COHB Art 0.2 % [facility] [...] Blood 109 (H) 98 - 107 mmol/L [facility] Gluc Whole Bld 315 (H) 65 - 199 mg/dL [facility] Comment: Diabetes: >=200 mg/dL plus symp toms. Lactate WB 7.6 (Critical) 0.5 - 2.2 mmol/L [facility] Comment: Noted by gyroscopic instrument mechanic. FIO2 Art 40 % [facility] PF Ratio Art 240 [facility] Specimen Anatomical Collection Method Collection Time Receive d Time (Source) Location / / Volume Laterality Blood specimen Arterial Draw / 07/08/2017 12:09 2016 5:31 (specimen) Unknown AM EST AM EST Resulting Agency Comment Spec In Lab Samy Maldonado MD CHEMISTRY ORDERABLES Performing Organization Address City/State/[place] [address] (ABNORMAL) POCT Glucose (07/07/2017 10:56 PM EST) athologist Signature POC Glucose 292 (H) 65 - 199 [facility] mg/dL [facility] Comment: [...] Organization Address City/State/[place] [address] (ABNORMAL) BLOOD GAS 2 ARTERIAL (07/07/2017 10:04 PM EST) athologist Signature pH Art 7.22 7.35 - [facility] (Critical) 7.45 [facility] Comment: Noted by gyroscopic instrument mechanic. pCO2 Art 42 35 - 45 mmHg [facility] pO2 Art 94 85 - 104 mmHg [facility] HCO3 Art 16.9 (L) 20.0 - 26.0 mmol/L [facility] BE Art -10.7 (L) -3.0 - 3.0 mmol/L [facility] Hgb Blood Gas 13.0 (L) 13.7 - 16.5 gm/dL [facility] O2HB Art 93.8 (L) 94.0 - 97.0 % [facility] COHB Art 0.7 % [facility] Comment: Nonsmokers: 0.5-1.5% COHB Smokers: Variable, but usually less than 10% Toxic: 20-30% COHB Lethal: Greater than 60% COHB METHB Art 0.7 <=1.5 % [facility] Na Whole Blood 140 135 - 145 mmol/L [facility] K Whole Blood 3.3 (L) 3.5 - 5.0 mmol/L [facility] Whole Blood 107 98 - 107 mmol/L [facility] Gluc Whole Bld 304 (H) 65 - 199 mg/dL [facility] Comment: Diabetes: >=200 mg/dL plus symp toms. Lactate WB 8.2 (Critical) 0.5 - 2.2 mmol/L [facility] Comment: Noted by gyroscopic instrument mechanic. FIO2 Art 40 % [facility] PF Ratio Art 235 [facility] Specimen Anatomical Collection Method Collection Time Receive d Time (Source) Location / / Volume Laterality Blood specimen 07/07/2017 10:04 7 (specimen) PM EST 10:04 PM EST Daphne Shahid MD CHEMISTRY ORDERABLES Performing Organization Address City/State/ZIP Code Phon e Number [address] (ABNORMAL) Hemoglobin (07/07/2017 10:00 PM EST) P athologist Signature Hemoglobin 12.8 (L) 13.7 - [facility] 16.5 gm/dL [facility] Specimen Anatomical Collection Method Collection Time Receive d Time (Source) Location / / Volume Laterality Blood specimen 07/07/2017 10:00 7 (specimen) PM EST 10:13 PM EST Resulting Agency Comment Spec In Lab Yuan Webber MD HEMATOLOGY ORDERABLES Performing Organization Address City/State/ZIP Code Phon e Number [address] (ABNORMAL) Potassium (07/07/2017 10:00 PM EST) P athologist Signature Potassium 3.4 (L) 3.5 - 5.0 [facility] mmol/L [facility] Comment: Please note: ??Patients [...] City/[facility]/ZIP [place] [address] (ABNORMAL) POCT Glucose (07/07/2017 8:49 PM EST) P athologist Signature POC Glucose 241 (H) 65 - 199 [facility] mg/dL [facility] Comment: [...] City/[facility]/ZIP [place] [address] Prepare Albumin 5% in [...] City/[facility]/ZIP [place] [address] EKG 12 Lead (07/07/2017 7:17 PM EST) Component Value Ref Range Test Analysis Performed Pathologis t Method Time At Signature Ventricular rate 75 BPM MUSE SYSTEM Atrial Rate 75 BPM MUSE SYSTEM P-R Interval 168 ms MUSE SYSTEM QRS Duration 104 ms MUSE SYSTEM Q-T Interval 462 ms MUSE SYSTEM QTC Calculated 515 ms MUSE SYSTEM (Bezet) Calculated P [place] 52 degrees MUSE SYSTEM Calculated R [place] -40 degrees MUSE SYSTEM Calculated T [place] 39 degrees MUSE SYSTEM INTERPRETATION Normal sinus [...] athologist Signature pH Art 7.21 7.35 - [facility] (Critical) 7.45 [facility] Comment: Noted by gyroscopic instrument mechanic. pCO2 Art 50 (H) 35 - 45 mmHg [facility] pO2 Art 238 (H) 85 - 104 mmHg [facility]ORY HCO3 Art 19.8 (L) 20.0 - 26.0 mmol/L [facility] BE Art -8.1 (L) -3.0 - 3.0 mmol/L [facility] Hgb Blood Gas 12.8 (L) 13.7 - 16.5 gm/dL [facility]ORY O2HB Art 97.5 (H) 94.0 - 97.0 % [facility]ORATORY COHB Art 0.5 % [facility] [...] mmol/L [facility] Comment: Noted by gyroscopic instrument mechanic. Please note: Patients with WBC >100,000 may have falsely elevated Potassium levels. Contact the Clinical Chemistry L aboratory if there are any questions. ICa Whole Blood 1.07 (L) 1.15 - 1.33 mmol/L [facility] Comment: Note: ??Total bilirubin higher than 20 m g/dL may lead to falsely low ionized calcium. CL Whole Blood 107 98 - 107 mmol/L [facility] Gluc Whole Bld 270 (H) 65 - 199 mg/dL [facility] Comment: Diabetes: >=200 mg/dL plus symp toms. Lactate WB 4.9 (Critical) 0.5 - 2.2 mmol/L [facility] Comment: Noted by gyroscopic instrument mechanic. FIO2 Art 100 % [facility] PF Ratio Art 238 [facility] Specimen Anatomical Collection Method Collection Time Receive d Time (Source) Location / / Volume Laterality Blood specimen 07/07/2017 6:57 PM 017 6:57 (specimen) EST PM EST Daphne Shahid MD CHEMISTRY ORDERABLES Performing Organization Address City/State/[place] [address] (ABNORMAL) BLOOD GAS 2 ARTERIAL (07/07/2017 5:31 PM EST) P athologist Signature pH Art 7.29 7.35 - [facility] (Critical) 7.45 [facility] Comment: Noted by gyroscopic instrument mechanic. pCO2 Art 48 (H) 35 - 45 mmHg [facility] pO2 Art 137 (H) 85 - 104 mmHg [facility] HCO3 Art 22.4 20.0 - 26.0 mmol/L [facility] BE Art -4.3 (L) -3.0 - 3.0 mmol/L [facility] Hgb Blood Gas 10.0 (L) 13.7 - 16.5 gm/dL [facility] O2HB Art 97.3 (H) 94.0 - 97.0 % [facility] COHB Art 0.3 % [facility] [...] Whole Blood 105 98 - 107 mmol/L [facility] Gluc Whole Bld 293 [...] Organization Address City/State/[place] [address] Fibrinogen (07/07/2017 5:30 PM EST) P athologist Signature Fibrinogen 224 180 - 510 [facility] mg/dL [facility] Comment: Called by: JEET, [...] HEMATOLOGY ORDERABLES Performing Organization Address City/[facility] Code Phon e Number [address] APTT (07/07/2017 5:30 PM EST) P athologist Signature PTT 30 25 - 35 sec [facility]OR[facility]ORY Comment: The recommended therapeutic range for fu ll dose, unfractionated heparin at [facility] is 80 ? 114 seconds. The use [...] Perez MD HEMATOLOGY ORDERABLES Performing Organization Address [place]/[facility] [place] [address] (ABNORMAL) Prothrombin Time (07/07/2017 5:30 PM EST) P athologist Signature PT 19.0 (H) 11.8 - 14.0 [facility] [...] City/[facility]/[place] [address] (ABNORMAL) Hemogram (07/07/2017 5:30 PM EST) athologist Signature WBC 19.6 (H) 4.0 - 9.5 [facility] x10(3)/[facility] LABORATORY RBC 3.08 (L) 4.58 - [facility] 5.54 [facility] x10(6)/[facility] LABORATORY Hemoglobin 9.2 (L) 13.7 - [facility] 16.5 gm/dL [facility] Hematocrit 28.0 (L) 40.5 - [facility] 48.5 % [facility] LABORATORY Comment: This result has been called to MONICA MORAN by DONALD GROSSMAN on 07 07 2017 at 1759, and has been read back. MCV 90.9 82.9 - 93.1 [facility] LABORATORY MCH 29.9 27.5 - 32.1 pg [facility] LABORATORY MCHC 32.9 32.0 - 35.7 gm/dL [facility] LABORATORY Platelets 155 145 - 357 x10(3)/[facility] LABORATORY RDWSD 46.5 (H) 36.0 - 45.0 [facility] LABORATORY RDWCV 14.1 (H) 11.4 - 13.8 % [facility] LABORATORY MPV 9.5 7.6 - 12.9 [facility] LABORATORY nRBC % Auto 0.0 % [facility] LABORATORY nRBC Abs Auto 0.000 0.000 - 0.000 x10(3)/[facility] LABORATORY Specimen Anatomical Collection Method Collection Time Receive d Time (Source) Location / / Volume Laterality Blood specimen 07/07/2017 5:30 PM 017 5:34 (specimen) EST PM EST Resulting Agency Comment Spec In Lab Yifan Perez MD HEMATOLOGY ORDERABLES Performing Organization Address City/State/[place] [address] Prepare Platelets, Apheresis (07/07/2017 5:00 PM EST) P athologist Signature Dispensed? Yes [facility] LABORATORY Specimen Anatomical Collection Method Collection Time Receive d Time (Source) Location / / Volume Laterality Blood specimen 07/07/2017 5:00 PM 017 4:58 (specimen) EST PM EST Daphne Shahid MD BLOOD BANK ORDERABLES Performing Organization Address City/State/[place] [address] Platelet count (07/07/2017 4:55 PM EST) athologist Signature Platelets 177 145 - 357 [facility] x10(3)/[facility] LABORATORY Plat Immature 1.5 0.0 - 7.4 [facility] % % [facility] LABORATORY Comment: Limitation of the Immature Platelet Frac tion (IPF)-May be less reliable when the platelet count is less than 76d733/u L due to statistical imprecision. The IPF [...] in a decreased state of production. References: [employer] The Clinical Value of the Immature Platelet Fraction (IPF) in Cell Recovery Document Number 10-1143 12/2010 [employer] The Role of the Imm [...] City/[facility]/ZIP [place] [address] (ABNORMAL) Hemoglobin and Hematocrit, blood (07/07/2017 4:55 PM EST) P athologist Signature Hemoglobin 9.1 (L) 13.7 - 16.5 [facility] Comment: This result has [...] City/[facility]/ZIP [place] [address] (ABNORMAL) BLOOD GAS 2 ARTERIAL (07/07/2017 4:38 PM EST) Analysis Performed At Patho logist Time Signature pH Art 7.37 7.35 - [facility] 7.45 [facility] LABORATORY pCO2 Art 44 35 - 45 [facility] mmHg [facility] LABORATORY pO2 Art 322 (H) 85 - 104 [facility] mmHg [facility] LABORATORY HCO3 Art 24.9 20.0 - [facility] 26.0 [facility] mmol/L [facility] LABORATORY BE Art -0.4 -3.0 - 3.0 [facility] mmol/L [facility] LABORATORY Hgb Blood Gas 10.1 (L) 13.7 - [facility] 16.5 gm/dL [facility] LABORATORY O2HB Art 98.7 (H) 94.0 - [facility] 97.0 % [facility] LABORATORY COHB Art 0.1 % [facility] LABORATORY Comment: Nonsmokers: 0.5-1.5% COHB Smokers: Variable, but usually less than 10% Toxic: 20-30% COHB Lethal: Greater than 60% COHB METHB Art 0.3 <=1.5 % [facility]ORATORY Na Whole Blood 130 (L) 135 - 145 mmol/L [facility] LABORATORY K Whole Blood 5.7 (H) 3.5 - 5.0 mmol/L [facility]ORY Comment: Please note: Patients with WBC >100,000 may have falsely elevated Potassium levels. Contact the Clinical Chemistry L aboratory if there are any questions. ICa Whole Blood 0.89 (Critical) 1.15 - 1.33 mmol/L [facility]OR[facility]ORY Comment: Noted by gyroscopic instrument mechanic. Note: ??Total bilirubin higher than 20 m g/dL may lead to falsely low ionized calcium. CL Whole Blood 101 98 - 107 mmol/L [facility] LABORATORY Gluc Whole Bld 295 [...] Organization Address City/State/[place] [address] (ABNORMAL) BLOOD GAS 2 VENOUS (07/07/2017 4:06 PM EST) Analysis Performed At Patho logist Time Signature pH Cody 7.31 (L) 7.32 - [facility] 7.42 [facility] LABORATORY pCO2 Cody 47 41 - 51 [facility] LABORATORY pO2 Cdoy 53 (H) 25 - 40 [facility] LABORATORY HCO3 Cody 22.7 mmol/L [facility] LABORATORY BE Cody -3.7 mmol/L [facility] LABORATORY Hgb Blood Gas 10.2 (L) 13.7 - [facility] 16.5 gm/dL [facility] LABORATORY O2HB [place] 81.0 % [facility] [...] Blood 5.3 (H) 3.5 - 5.0 mmol/L [facility]ORY Comment: Please note: Patients with WBC >100,000 may have falsely elevated Potassium levels. Contact the Clinical Chemistry L aboratory if there are any questions. ICa Whole Blood 0.90 (Critical) 1.15 - 1.33 mmol/L [facility]OR[facility]ORY Comment: Noted by gyroscopic instrument mechanic. Note: ??Total bilirubin higher than 20 m g/dL may lead to falsely low ionized calcium. CL Whole Blood 100 98 - 107 mmol/L [facility]ATORY Gluc Whole Bld 231 (H) 65 - 199 mg/dL [facility] LABORATORY Comment: Diabetes: >=200 mg/dL plus symp toms Lactate WB 1.1 0.5 - 2.2 mmol/L [facility] LABORATORY BGas Source Venous [facility] LABORATORY Specimen Anatomical Collection Method Collection Time Receive d Time (Source) Location / / Volume Laterality Blood specimen 07/07/2017 4:06 PM 017 4:06 (specimen) EST PM EST Daphne Shahid MD CHEMISTRY ORDERABLES Performing Organization Address City/State/[place] [address] (ABNORMAL) BLOOD GAS 2 ARTERIAL (07/07/2017 4:05 PM EST) Analysis Performed At Patho logist Time Signature pH Art 7.36 7.35 - [facility] 7.45 [facility] LABORATORY pCO2 Art 40 35 - 45 [facility] LABORATORY pO2 Art 282 (H) 85 - 104 [facility] LABORATORY HCO3 Art 22.1 20.0 - [facility] 26.0 [facility] mmol/L [facility] LABORATORY BE Art -3.4 (L) -3.0 - 3.0 [facility] mmol/L [facility] LABORATORY Hgb Blood Gas 10.2 (L) 13.7 - [facility] 16.5 gm/dL [facility] LABORATORY O2HB Art 98.4 (H) 94.0 - [facility] 97.0 % [facility] LABORATORY COHB Art 0.3 % [facility] LABORATORY Comment: Nonsmokers: 0.5-1.5% COHB Smokers: Variable, but usually less than 10% Toxic: 20-30% COHB Lethal: Greater than 60% COHB METHB Art 0.3 <=1.5 % [facility] Na Whole Blood 131 (L) 135 - 145 mmol/L [facility] LABORATORY K Whole Blood 5.4 (H) 3.5 - 5.0 mmol/L [facility] Comment: Please note: Patients with WBC >100,000 may have falsely elevated Potassium levels. Contact the Clinical Chemistry L aboratory if there are any questions. ICa Whole Blood 0.86 (Critical) 1.15 - 1.33 mmol/L [facility] Comment: Noted by gyroscopic instrument mechanic. Note: ??Total bilirubin higher than 20 m g/dL may lead to falsely low ionized calcium. CL Whole Blood 101 98 - 107 mmol/L [facility]OR[facility]ORY Gluc Whole Bld 260 [...] Organization Address City/State/[place] [address] (ABNORMAL) BLOOD GAS 2 ARTERIAL (07/07/2017 2:29 PM EST) Analysis Performed At Patho logist Time Signature pH Art 7.43 7.35 - [facility] 7.45 [facility] LABORATORY pCO2 Art 36 35 - 45 [facility] LABORATORY pO2 Art 221 (H) 85 - 104 [facility] LABORATORY HCO3 Art 23.2 20.0 - [facility] 26.0 [facility] mmol/L [facility] LABORATORY BE Art -1.2 -3.0 - 3.0 [facility] mmol/L [facility] LABORATORY Hgb Blood Gas 13.9 13.7 - [facility] 16.5 gm/dL [facility] O2HB Art 97.8 (H) 94.0 - [facility] 97.0 % [facility] LABORATORY COHB Art 1.1 % [place] [...] Address City/State/ZIP [place] [address] Prepare Coag Factors (Non-Hemophilia) (07/07/2017 1:25 PM EST) P athologist Signature Dispensed? Yes [facility] LABORATORY Specimen Anatomical Collection Method Collection Time Receive d Time (Source) Location / / Volume Laterality Blood specimen 07/07/2017 1:25 PM 017 1:21 (specimen) EST PM EST Daphne Shahid MD BLOOD BANK ORDERABLES Performing Organization Address City/State/ZIP Code Phon e Number [address] Prepare RBC (07/07/2017 1:10 PM EST) P athologist Signature Dispensed? Yes [facility]ORATORY Specimen Anatomical Collection Method Collection Time Receive d Time (Source) Location / / Volume Laterality Blood specimen 07/07/2017 1:10 PM 017 1:05 (specimen) EST PM EST Daphne Shahid MD BLOOD BANK ORDERABLES Performing Organization Address City/State/ZIP [place] [address] POCT Glucose (07/07/2017 11:56 AM EST) athologist Signature POC Glucose 188 65 - 199 [facility] mg/dL [facility] LABORATORY Comment: Supplemental [...] City/[facility]/ZIP [place] [address] POCT Glucose (07/07/2017 11:05 AM EST) athologist Signature POC Glucose 168 65 - 199 [facility] Comment: Supplemental [...] Address City/State/ZIP Code Phon e Number [address] POCT Glucose (07/07/2017 10:02 AM EST) P athologist Signature POC Glucose 191 65 - 199 [facility] mg/dL [facility] LABORATORY Comment: Supplemental [...] Address City/State/ZIP Code Phon e Number [address] POCT Glucose (07/07/2017 7:53 AM EST) athologist Signature POC Glucose 178 65 - 199 [facility] mg/dL [facility]OR[facility]ORY Comment: Supplemental [...] Address City/State/ZIP Code Phon e Number [address] POCT Glucose (07/07/2017 7:03 AM EST) athologist Signature POC Glucose 188 65 - 199 [facility] mg/dL [facility]OR[facility]ORY Comment: Supplemental [...] Address City/State/ZIP [place] [address] (ABNORMAL) POCT Glucose (07/07/2017 6:17 AM EST) athologist Signature POC Glucose 207 (H) 65 - 199 [facility]dL [facility]ORY Comment: Supplemental [...] City/[facility]/ZIP Code Phon e Number [address] Differential, Automated (07/07/2017 5:15 AM EST) athologist Signature Neutrophils % 69.7 % [facility] LABORATORY Neutr Abs (ANC) 5.32 1.70 - [facility] 6.10 [facility] x10(3)/[facility] LABORATORY Lymphocytes % 16.3 % [facility] LABORATORY Lymphocytes Abs 1.2 0.9 - 3.2 [facility] x10(3)/[facility] LABORATORY Monocytes % 10.5 % [facility] LABORATORY Monocyte Abs 0.8 0.3 - 0.9 [facility] x10(3)/[facility] LABORATORY Eosinophils % 2.5 % [facility] LABORATORY Eosinophils Abs 0.2 0.0 - 0.4 [facility] x10(3)/[facility] LABORATORY Basophils % 0.7 % [facility] LABORATORY Basophils Abs 0.0 0.0 - 0.1 [facility] x10(3)/[facility] LABORATORY Immature Gran % 0.30 [...] Melisa Gran Abs 0.02 0.00 - 0.04 x10(3)/[facility] LABORATORY Specimen Anatomical Collection Method Collection Time Receive d Time (Source) Location / / Volume Laterality Blood specimen 07/07/2017 5:15 AM 017 5:34 (specimen) EST AM EST Resulting Agency Comment Spec In Lab Daphne Shahid MD HEMATOLOGY ORDERABLES Performing Organization Address City/State/ZIP [place] [address] (ABNORMAL) Hemogram (07/07/2017 5:15 AM EST) Analysis Performed At Patho logist Time Signature WBC 7.6 4.0 - 9.5 [facility] x10(3)/[facility] LABORATORY RBC 4.82 4.58 - [facility] 5.54 [facility] x10(6)/[facility] Hemoglobin 14.4 13.7 - [facility] [facility] 16.5 gm/dL [facility] Hematocrit 42.1 40.5 - [facility] 48.5 % [facility] MCV 87.3 82.9 - [facility] 93.1 [facility] LABORATORY MCH 29.9 27.5 - [place] [facility] 32.1 pg [facility] MCHC 34.2 32.0 - [facility] 35.7 gm/dL [facility] Platelets 188 145 - 357 [facility] x10(3)/[facility] LABORATORY RDWSD 45.1 (H) 36.0 - [facility] 45.0 [facility] RDWCV 14.3 (H) 11.4 - [facility] SU 13.8 % [facility] LABORATORY MPV 9.4 7.6 - 12.9 [facility] LABORATORY nRBC % Auto 0.0 % [facility] LABORATORY nRBC Abs Auto 0.000 0.000 - [facility] 0.000 [facility] x10(3)/[facility] LABORATORY Specimen Anatomical Collection Method Collection Time Receive d Time (Source) Location / / Volume Laterality Blood specimen 07/07/2017 5:15 AM 017 5:34 (specimen) EST AM EST Resulting Agency Comment Spec In Lab Daphne Shahid MD HEMATOLOGY ORDERABLES Performing Organization Address City/[facility]/ZIP [place] [address] (ABNORMAL) APTT (07/07/2017 5:15 AM EST) P athologist Signature PTT 69 (H) 25 - 35 sec [facility] LAB[facility] Comment: The recommended therapeutic range for fu ll dose, unfractionated heparin at [facility] is 80 ? 114 seconds. The use [...] City/[facility]/ZIP [place] [address] Magnesium (07/07/2017 5:15 AM EST) P athologist Signature Magnesium 0.94 0.69 - 1.07 [facility] mmol/L [facility] LABORATORY Specimen Anatomical Collection Method Collection Time Receive d Time (Source) Location / / Volume Laterality Blood specimen 07/07/2017 5:15 AM 017 5:34 (specimen) EST AM EST Resulting Agency Comment Spec In Lab Daphne Shahid MD CHEMISTRY ORDERABLES Performing Organization Address City/[facility]/ZIP [place] [address] (ABNORMAL) Basic Metabolic Panel (non-fasting) (07/07/2017 5:15 AM EST) athologist Signature Glucose Lvl 203 (H) 65 - 199 [facility] mg/dL [facility] Comment: Diabetes: >=200 mg/dL plus symp toms BUN 15 10 - 20 mg/dL [facility] LABORATORY Creatinine 1.09 0.80 - 1.50 [...] [facility] LAB[facility] Estimated GFR >60 >=60 [facility] LABOR[facility]ORY Comment: The reported eGFR should be multiplied b y 1.2 for patients. The MDRD is not an appropriate measure o f renal function for patients with body mass extremes or in patients with acute kidney failure. [email or web address] [email or web address] Specimen Anatomical Collection Method Collection Time Receive d Time (Source) Location / / Volume Laterality Blood specimen 07/07/2017 5:15 AM 017 5:34 (specimen) EST AM EST Resulting Agency Comment Spec In Lab Daphne Shahid MD CHEMISTRY ORDERABLES Performing Organization Address City/State/[place] [address] (ABNORMAL) Cardiac Enzymes (LEB/CGP) (07/07/2017 5:15 AM EST) athologist Signature Troponin-T 2.07 (H) 0.00 - [place] [facility] 0.00 ng/mL [facility] Comment: The 99th percentile [...] additional sample may be indicated. Reference: Third Mary Alice Definition of Myocardial Infarction. Journal of the [...] Organization Address City/State/[place] [address] POCT Glucose (07/07/2017 5:01 AM EST) P athologist Signature POC Glucose 182 65 - 199 [facility] mg/dL [facility] LABOR[facility] Comment: [...] Address City/State/ZIP Code Phon e Number [address] POCT Glucose (07/07/2017 4:08 AM EST) athologist Signature POC Glucose 199 65 - 199 [facility] mg/dL [facility] Comment: Supplemental [...] City/[facility]/ZIP [place] [address] POCT Glucose (07/07/2017 3:03 AM EST) athologist Signature POC Glucose 188 65 - 199 [facility] mg/dL [facility] Comment: Supplemental [...] Address City/State/ZIP [place] [address] (ABNORMAL) POCT Glucose (07/07/2017 2:08 AM EST) athologist Signature POC Glucose 200 (H) 65 - 199 [facility] mg/dL [facility] Comment: Supplemental [...] Address City/State/ZIP [place] [address] (ABNORMAL) POCT Glucose (07/07/2017 1:31 AM EST) P athologist Signature POC Glucose 209 (H) 65 - 199 [facility] mg/dL [facility] Comment: Supplemental [...] Address City/State/ZIP [place] [address] XR Chest PA or [...] Glucose 161 65 - 199 [facility] mg/dL [facility] Comment: Supplemental [...] City/[facility]/ZIP [place] [address] (ABNORMAL) APTT (07/07/2017 12:00 AM EST) athologist Signature PTT 103 (H) 25 - 35 sec [facility] Comment: The recommended therapeutic range for fu ll dose, unfractionated heparin at [facility] is 80 ? 114 seconds. The use [...] Address City/State/ZIP [place] [address] POCT Glucose (07/06/2017 9:55 PM EST) athologist Signature POC Glucose 109 65 - 199 [facility] mg/dL [facility] Comment: Supplemental [...] Address City/State/ZIP Code Phon e Number [address] POCT Glucose (07/06/2017 9:04 PM EST) athologist Signature POC Glucose 120 65 - 199 [facility] mg/dL [facility] Comment: Supplemental [...] City/[facility]/ZIP [place] [address] POCT Glucose (07/06/2017 7:45 PM EST) athologist Signature POC Glucose 158 65 - 199 [facility] mg/dL [facility] Comment: Supplemental [...] City/[facility]/ZIP [place] [address] Potassium (07/06/2017 7:40 PM EST) athologist Signature Potassium 3.9 3.5 - 5.0 [facility] mmol/L [facility] Comment: Please note: ??Patients [...] City/[facility]/[place] [address] (ABNORMAL) Cardiac Enzymes (LEB/CGP) (07/06/2017 7:40 PM EST) athologist Signature Troponin-T 2.27 (H) 0.00 - [place] [facility] 0.00 ng/mL [facility] Comment: The 99th percentile [...] additional sample may be indicated. Reference: Third Mary Alice Definition of Myocardial Infarction. Journal of the [...] Address City/State/ZIP [place] [address] (ABNORMAL) POCT Glucose (07/06/2017 7:13 PM EST) athologist Signature POC Glucose 200 (H) 65 - 199 [facility] mg/dL [facility] Comment: Supplemental ranges: <140 mg/dL before meals <180 mg/dL all other times of the day Specimen Anatomical Collection Method Collection Time Receive d Time (Source) Location / / Volume Laterality Blood specimen 07/06/2017 7:13 PM 017 7:13 (specimen) EST PM EST Daphne Shahid MD POINT OF CARE TEST ORDERABLE S Performing Organization Address City/State/ZIP Code [facility] [place] [address] (ABNORMAL) APTT (07/06/2017 6:15 PM EST) athologist [facility] PTT 94 (H) 25 - 35 sec [facility] Comment: The recommended therapeutic range for fu ll dose, unfractionated heparin at [facility] is 80 ? 114 seconds. The use [...] Address City/State/ZIP [place] [address] (ABNORMAL) POCT Glucose (07/06/2017 6:03 PM EST) athologist Signature POC Glucose 236 (H) 65 - 199 [facility] mg/dL [facility] Comment: [...] Address City/State/ZIP [place] [address] (ABNORMAL) POCT Glucose (07/06/2017 5:01 PM EST) P athologist Signature POC Glucose 235 (H) 65 - 199 [place] [facility] mg/dL [facility] Comment: Supplemental [...] City/[facility]/ZIP [place] [address] (ABNORMAL) POCT Glucose (07/06/2017 4:06 PM EST) P athologist Signature POC Glucose 202 (H) 65 - 199 [place] [facility] mg/dL [facility] Comment: Supplemental [...] Address City/State/ZIP [place] [address] POCT Glucose (07/06/2017 2:59 PM EST) P athologist Signature POC Glucose 178 65 - 199 [place] [facility] mg/dL [facility] Comment: Supplemental [...] City/[facility]/ZIP Code Phon e Number [address] (ABNORMAL) Cardiac Enzymes (LEB/CGP) (07/06/2017 2:10 PM EST) P athologist Signature Troponin-T 2.34 (H) 0.00 - [place] [facility] 0.00 ng/mL [facility] Comment: The 99th percentile [...] additional sample may be indicated. Reference: Third Mary Alice Definition of Myocardial Infarction. Journal of the [...] City/[facility]/ZIP [place] [address] POCT Glucose (07/06/2017 2:08 PM EST) P athologist Signature POC Glucose 192 65 - 199 [place] [facility] mg/dL [facility] Comment: Supplemental [...] Address City/State/ZIP Code Phon e Number [address] POCT Glucose (07/06/2017 1:04 PM EST) athologist Signature POC Glucose 162 65 - 199 [facility] mg/dL [facility] Comment: Supplemental [...] Address City/State/ZIP Code Phon e Number [address] POCT Glucose (07/06/2017 12:05 PM EST) athologist Signature POC Glucose 196 65 - 199 [facility] mg/dL [facility] Comment: Supplemental [...] Address City/State/ZIP [place] [address] EKG 12 Lead (07/06/2017 12:00 PM EST) Component Value Ref Range Test Analysis Performed Pathologis t Method Time At Signature Ventricular rate 91 BPM MUSE SYSTEM Atrial Rate 91 BPM MUSE SYSTEM P-R Interval 140 ms MUSE SYSTEM QRS Duration 94 ms MUSE SYSTEM Q-T Interval 394 ms MUSE SYSTEM QTC Calculated 484 ms MUSE SYSTEM (Bezet) Calculated P [place] 36 degrees MUSE SYSTEM Calculated R [place] -19 degrees MUSE SYSTEM Calculated T [place] 104 degrees MUSE SYSTEM INTERPRETATION Normal sinus rhythm MUSE SYSTEM 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) ST & T wave abnormality, consider lateral ischemia Abnormal ECG When compared with ECG of 05-JUL-2017 20:39, No significant change was found Confirmed by MD Luci, Taurus Braun ([id number]) on 07/06/2017 5:07:33 PM Specimen Anatomical Collection Method Collection Time Receive d Time (Source) Location / / Volume Laterality 07/06/2017 12:00 07/06/2017 5:07 PM EST PM EST Daphne Shahid MD ECG ORDERABLES Performing Organization Address City/[facility]/ZIP Code Phon e Number MUSE SYSTEM ABORH Recheck Status (07/06/2017 12:00 PM EST) [facility] Method Time Signature ABORH Type Completed [facility] LABORATORY Specimen Anatomical Collection Method Collection Time Receive d Time (Source) Location / / Volume Laterality Blood specimen 07/06/2017 12:00 7 (specimen) PM EST 12:24 PM EST Resulting Agency Comment Spec In Lab Daphne Shahid MD BLOOD BANK ORDERABLES Performing Organization Address City/[facility]/[place] [address] Antibody screen (07/06/2017 12:00 PM EST) [facility] Method Time Signature Ab Screen Negative [facility] LABORATORY Expires at 07/09/2017 [facility] [id number] on: [facility] LABORATORY Specimen Anatomical Collection Method Collection Time Receive d Time (Source) Location / / Volume Laterality Blood specimen 07/06/2017 12:00 7 (specimen) PM EST 12:24 PM EST Resulting Agency Comment Spec In Lab Daphne Shahid MD BLOOD BANK ORDERABLES Performing Organization Address City/[facility]/[place] [address] ABO/Rh Typing (07/06/2017 12:00 [...] City/State/ZIP Code Phon e Number [place] [id number]OS[address] Prothrombin Time (07/06/2017 11:24 AM EST) athologist Signature PT 13.3 11.8 - 14.0 [facility] LABORATORY INR 1.0 0.9 - [...] City/State/ZIP Code Phon e Number [place] [id number]OS[address] LAB[address]ORY Drive (ABNORMAL) APTT (07/06/2017 11:24 AM EST) P athologist Signature PTT 52 (H) 25 - 35 sec [facility] LABORATORY Comment: The recommended therapeutic range for fu ll dose, unfractionated heparin at [facility] is 80 ? 114 seconds. The use [...] Address City/State/ZIP Code Phon e Number [address] POCT Glucose (07/06/2017 11:02 AM EST) athologist Signature POC Glucose 187 65 - 199 [place] [facility] mg/dL [facility] LABOR[facility]ORY Comment: Supplemental [...] Address City/State/ZIP Code Phon e Number [address] POCT Glucose (07/06/2017 10:18 AM EST) athologist Signature POC Glucose 193 65 - 199 [place] [facility] mg/dL [facility] Comment: Supplemental [...] Address City/State/ZIP Code Phon e Number [address] POCT Glucose (07/06/2017 9:25 AM EST) athologist Signature POC Glucose 182 65 - 199 [place] [facility] mg/dL [facility] Comment: Supplemental [...] City/[facility]/[place] [address] (ABNORMAL) Cardiac Enzymes (LEB/CGP) (07/06/2017 8:10 AM EST) P athologist Signature Troponin-T 2.26 (H) 0.00 - [facility] ng/mL [facility] Comment: The 99th percentile [...] additional sample may be indicated. Reference: Third Mary Alice Definition of Myocardial Infarction. Journal of the [...] Address City/State/ZIP Code Phon e Number [place] [address] Magnesium (07/06/2017 8:10 AM EST) athologist Signature Magnesium 0.84 0.69 - 1.07 [facility] mmol/L [facility] LABORATORY Specimen Anatomical Collection Method Collection Time Receive d Time (Source) Location / / Volume Laterality Blood specimen 07/06/2017 8:10 AM 017 8:21 (specimen) EST AM EST Resulting Agency Comment Spec In Lab Daphne Shahid MD CHEMISTRY ORDERABLES Performing Organization Address City/State/ZIP Code Phon e Number [address] (ABNORMAL) Basic Metabolic Panel (non-fasting) (07/06/2017 8:10 AM EST) athologist Signature Glucose Lvl 199 65 - 199 [facility] mg/dL [facility] Comment: Diabetes: >=200 mg/dL plus symp toms BUN 16 10 - 20 mg/dL [facility] LABORATORY Creatinine 1.04 0.80 - 1.50 [...] [facility] LAB[facility]ORY Estimated GFR >60 >=60 [facility] LABORATORY Comment: The reported eGFR should be multiplied b y 1.2 for patients. The MDRD is not an appropriate measure o f renal function for patients with body mass extremes or in patients with acute kidney failure. http://[email or web address]/DHnkdep [email or web address]igi/DHMCnkf Specimen Anatomical Collection Method Collection Time Receive d Time (Source) Location / / Volume Laterality Blood specimen 07/06/2017 8:10 AM 017 8:21 (specimen) EST AM EST Resulting Agency Comment Spec In Lab Daphne Shahid MD CHEMISTRY ORDERABLES Performing Organization Address City/[facility]/ZIP Code Phon e Number [address] POCT Glucose (07/06/2017 7:34 AM EST) athologist Signature POC Glucose 198 65 - 199 [facility] mg/dL [facility] Comment: Supplemental [...] City/[facility]/ZIP [place] [address] POCT Glucose (07/06/2017 7:03 AM EST) athologist Signature POC Glucose 181 65 - 199 [facility] mg/dL [facility] Comment: Supplemental [...] City/[facility]/ZIP [place] [address] XR Chest PA or [...] Signature POC Glucose 172 65 - 199 [facility] mg/dL [facility] LABOR[facility] Comment: [...] Address City/State/ZIP Code Phon e Number [address] POCT Glucose (07/06/2017 5:08 AM EST) athologist Signature POC Glucose 154 65 - 199 [place] [facility] mg/dL [facility]OR[facility] Comment: Supplemental [...] Address City/State/ZIP Code Phon e Number [address] POCT Glucose (07/06/2017 4:05 AM EST) athologist Signature POC Glucose 142 65 - 199 [place] [facility] mg/dL [facility] Comment: Supplemental [...] Address City/State/ZIP Code Phon e Number [address] POCT Glucose (07/06/2017 3:00 AM EST) athologist Signature POC Glucose 116 65 - 199 [place] [facility] mg/dL [facility]OR[facility] Comment: Supplemental [...] City/[facility]/ZIP Code Phon e Number [address] Potassium (07/06/2017 2:20 AM EST) athologist Signature Potassium 3.9 3.5 - 5.0 [facility] mmol/L [facility] Comment: Please note: ??Patients [...] City/[facility]/ZIP Code Phon e Number [address] Differential, Automated (07/06/2017 2:20 AM EST) athologist Signature Neutrophils % 72.9 % [facility] LABORATORY Neutr Abs (ANC) 5.53 1.70 - [facility] 6.10 [facility] x10(3)/[facility] LABORATORY Lymphocytes % 16.4 % [facility] LABORATORY Lymphocytes Abs 1.2 0.9 - 3.2 [facility] x10(3)/[facility] LABORATORY Monocytes % 9.4 % [facility] LABORATORY Monocyte Abs 0.7 0.3 - 0.9 [facility] x10(3)/[facility] LABORATORY Eosinophils % 0.5 % [facility] LABORATORY Eosinophils Abs 0.0 0.0 - 0.4 [facility] x10(3)/[facility] LABORATORY Basophils % 0.4 % [facility] LABORATORY Basophils Abs 0.0 0.0 - 0.1 [facility] x10(3)/[facility] LABORATORY Immature Gran % [...] 0.00 - 0.04 x10(3)/[facility] MAR Y [facility] LABORATORY Specimen Anatomical Collection Method Collection Time Receive d Time (Source) Location / / Volume Laterality Blood specimen 07/06/2017 2:20 AM 017 2:33 (specimen) EST AM EST Resulting Agency Comment Spec In Lab Daphne Shahid MD HEMATOLOGY ORDERABLES Performing Organization Address City/State/[place] [address] (ABNORMAL) Hemogram (07/06/2017 2:20 AM EST) Analysis Performed At Patho logist Time Signature WBC 7.6 4.0 - 9.5 [facility] x10(3)/[facility] LABORATORY RBC 4.52 (L) 4.58 - [facility] 5.54 [facility] x10(6)/[facility] LABORATORY Hemoglobin 13.4 (L) 13.7 - [facility] 16.5 gm/dL [facility] LABOR[facility]ORY Hematocrit 39.7 (L) 40.5 - [facility] 48.5 % [facility] LABORATORY MCV 87.8 82.9 - [facility] 93.1 [facility] LABORATORY MCH 29.6 27.5 - [facility] SU 32.1 pg [facility] LABORATORY MCHC 33.8 32.0 - [facility] 35.7 gm/dL [facility] LABORATORY Platelets 189 145 - 357 [facility] x10(3)/[facility] LABORATORY RDWSD 45.6 (H) 36.0 - [facility] 45.0 [facility] LABORATORY RDWCV 14.3 (H) 11.4 - [facility] SU 13.8 % [facility] LABORATORY MPV 9.1 7.6 - 12.9 [facility] LABORATORY nRBC % Auto 0.0 % [facility] LABORATORY nRBC Abs Auto 0.000 0.000 - [place] 0.000 [facility] x10(3)/[facility] LABORATORY Specimen Anatomical Collection Method Collection Time Receive d Time (Source) Location / / Volume Laterality Blood specimen 07/06/2017 2:20 AM 017 2:33 (specimen) EST AM EST Resulting Agency Comment Spec In Lab Daphne Shahid MD HEMATOLOGY ORDERABLES Performing Organization Address City/State/ZIP Code Phon e Number [address] (ABNORMAL) APTT (07/06/2017 2:20 AM EST) P athologist Signature PTT 52 (H) 25 - 35 sec [facility] LABORATORY Comment: The recommended therapeutic range for fu ll dose, unfractionated heparin at [facility] is 80 ? 114 seconds. The use [...] City/[facility]/ZIP Code Phon e Number [address] POCT Glucose (07/06/2017 2:20 AM EST) P athologist Signature POC Glucose 115 65 - 199 [facility] mg/dL [facility] LABORATORY Comment: [...] City/[facility]/ZIP [place] [address] (ABNORMAL) Cardiac Enzymes (LEB/CGP) (07/06/2017 2:20 AM EST) P athologist Signature Troponin-T 2.13 (H) 0.00 - [place] [facility] 0.00 ng/mL [facility] LABORATORY Comment: The 99th percentile [...] additional sample may be indicated. Reference: Third Mary Alice Definition of Myocardial Infarction. Journal of the [...] Organization Address City/State/[place] [address] (ABNORMAL) Hemoglobin A1c (07/06/2017 [...] with hemoglobinopathies. Additional resources are available on [facility] ADA website. Macario HAMMOND, Ruthann J, Deysi R, et al. ??Tr anslating the A1C assay into estimated average glucose values. ??Diabetes Care 2008:31(8):7337-3190. Specimen Anatomical Collection Method Collection Time Receive d Time (Source) Location / / Volume Laterality Blood specimen 07/06/2017 2:20 AM 017 2:34 (specimen) EST AM EST Resulting Agency Comment Spec In Lab Daphne Shahid MD CHEMISTRY ORDERABLES Performing Organization Address City/State/ZIP Code Phon e Number [facility] (ABNORMAL) Lipid Panel (07/06/2017 2:20 AM EST) Patholo gist Method Time Signature Chol, Total 150 <=239 [place] mg/dL [facility] LABORATORY Triglycerides 129 <=199 [facility] mg/dL [facility] LABORATORY HDL 32 (L) >=40 [place] mg/dL [facility] LABORATORY LDL Cholesterol 92 <=190 [facility] mg/dL [facility] LABORATORY Chol/HDL Ratio 4.7 ratio [facility] LABORATORY Lipid See Note [place] Interpretation [facility] LABORATORY Comment: Lipid management should be guided by a p atient? s ASCVD risk, goals and preferences. ACC/AHA Guidelines recommend high intens ity statin if clinical ASCVD or LDL greater than or equal to 190 mg/dL. http://[employer]/HOI-SQQ-Gdqlcblhx Adults aged 40-75 with LDL 70-189 mg/dL should have their 10 year ASCVD risk estimated with the ACC/AHA ASCVD risk es timator http://tools.acc.org/QFBVP-Eocq-Nrauoqsh r/ Statin should be discussed if risk [...] Address City/State/ZIP Code Phon e Number [address] POCT Glucose (07/06/2017 1:09 AM EST) athologist Signature POC Glucose 121 65 - 199 [place] mg/dL [facility] LABORATORY Comment: Supplemental [...] Address City/State/ZIP Code Phon e Number [address] POCT Glucose (07/06/2017 12:06 AM EST) athologist Signature POC Glucose 147 65 - 199 [place] mg/dL [facility] LABOR[facility]ORY Comment: Supplemental [...] Address City/State/ZIP [place] [address] (ABNORMAL) POCT Glucose (07/05/2017 10:56 PM EST) athologist Signature POC Glucose 200 (H) 65 - 199 [place] mg/dL [facility] LABOR[facility]ORY Comment: Supplemental [...] Address City/State/ZIP [place] [address] (ABNORMAL) POCT Glucose (07/05/2017 10:05 PM EST) athologist Signature POC Glucose 225 (H) 65 - 199 [place] mg/dL [facility] LABOR[facility] Comment: Supplemental [...] Address City/State/ZIP [place] [address] (ABNORMAL) POCT Glucose (07/05/2017 9:02 PM EST) P athologist Signature POC Glucose 301 (H) 65 - 199 [facility] mg/dL [facility] LABORATORY Comment: [...] Address City/State/ZIP [place] [address] XR Chest PA or [...] 474 ms MUSE SYSTEM (Bezet) Calculated P [place] 50 degrees MUSE SYSTEM Calculated R [place] -28 degrees MUSE SYSTEM Calculated T [place] 90 degrees MUSE SYSTEM INTERPRETATION Sinus tachycardia [...] Neutr Abs (ANC) 9.08 (H) 1.70 - [facility] 6.10 [facility] x10(3)/[facility] L LABORATORY Lymphocytes % 7.0 % [facility] LABORATORY Lymphocytes Abs 0.7 (L) 0.9 - 3.2 [facility] x10(3)/[facility] LABORATORY Monocytes % 3.7 % [facility] LABORATORY Monocyte Abs 0.4 0.3 - 0.9 [facility] x10(3)/[facility] LABORATORY Eosinophils % 0.1 % [facility] LABORATORY Eosinophils Abs 0.0 0.0 - 0.4 [facility] x10(3)/[facility] LABORATORY Basophils % 0.2 % [facility] LABORATORY Basophils Abs 0.0 0.0 - 0.1 [facility] x10(3)/[facility] LABORATORY Immature Gran % 0.60 [...] Organization Address City/State/[place] [address] (ABNORMAL) Hemogram (07/05/2017 8:20 PM EST) Analysis Performed At Patho logist Time Signature WBC 10.3 (H) 4.0 - 9.5 [facility] x10(3)/[facility] LABORATORY RBC 4.64 4.58 - [facility] 5.54 [facility] x10(6)/[facility] LABORATORY Hemoglobin 14.1 13.7 - [facility] 16.5 gm/dL [facility] LABORATORY Hematocrit 40.8 40.5 - [facility] 48.5 % [facility] LABORATORY MCV 87.9 82.9 - [place] 93.1 [facility] LABORATORY MCH 30.4 27.5 - [place] OLIVASCK 32.1 pg [facility] LABORATORY MCHC 34.6 32.0 - [place] ZHAOSU 35.7 gm/dL [facility] LABORATORY Platelets 204 145 - 357 [facility] x10(3)/[facility] LABORATORY RDWSD 46.1 (H) 36.0 - [place] 45.0 [facility] LABORATORY RDWCV 14.5 (H) 11.4 - [facility] SU 13.8 % [facility] LABORATORY MPV 9.7 7.6 - 12.9 [facility] LABORATORY nRBC % Auto 0.0 % [facility] LABORATORY nRBC Abs Auto 0.000 0.000 - [place] 0.000 [facility] x10(3)/[facility] LABORATORY Specimen Anatomical Collection Method Collection Time Receive d Time (Source) Location / / Volume Laterality Blood specimen 07/05/2017 8:20 PM 017 8:27 (specimen) EST PM EST Resulting Agency Comment Spec In Lab Daphne Shahid MD HEMATOLOGY ORDERABLES Performing Organization Address City/State/ZIP [place] [address] APTT (07/05/2017 8:20 PM EST) P athologist Signature PTT 32 25 - 35 sec [facility] LABORATORY Comment: The recommended therapeutic range for fu ll dose, unfractionated heparin at [facility] is 80 ? 114 seconds. The use [...] Address City/State/ZIP [place] [address] (ABNORMAL) Cardiac Enzymes (LEB/CGP) (07/05/2017 8:20 PM EST) athologist Signature Troponin-T 2.11 (H) 0.00 - [place] 0.00 ng/mL [facility] LABORATORY Comment: The 99th percentile [...] additional sample may be indicated. Reference: Third Mary Alice Definition of Myocardial Infarction. Journal of the [...] Organization Address City/State/[place] [address] (ABNORMAL) Magnesium (07/05/2017 8:20 PM EST) P athologist Signature Magnesium 0.68 (L) 0.69 - 1.07 [facility] mmol/L [facility] LABORATORY Specimen Anatomical Collection Method Collection Time Receive d Time (Source) Location / / Volume Laterality Blood specimen 07/05/2017 8:20 PM 017 8:27 (specimen) EST PM EST Resulting Agency Comment Spec In Lab Daphne Shahid MD CHEMISTRY ORDERABLES Performing Organization Address City/State/[place] [address] (ABNORMAL) Basic Metabolic Panel (non-fasting) (07/05/2017 8:20 PM EST) P athologist Signature Glucose Lvl 321 (H) 65 - 199 [facility] mg/dL [facility] LABORATORY Comment: [...] [facility] LAB[facility]ORY Estimated GFR >60 >=60 [facility] LABORATORY Comment: The reported eGFR should be multiplied b y 1.2 for patients. The MDRD is not an appropriate measure o f renal function for patients with body mass extremes or in patients with acute kidney failure. http://Arzeda.Partigi/DHnkdep http://[employer]/DHMCnkf Specimen Anatomical Collection Method Collection Time Receive d Time (Source) Location / / Volume Laterality Blood specimen 07/05/2017 8:20 PM 017 8:27 (specimen) EST PM EST Resulting Agency Comment Spec In Lab Daphne Shahid MD CHEMISTRY ORDERABLES Performing Organization Address City/State/ZIP Code Phon e Number [address] (ABNORMAL) POCT Glucose (07/05/2017 7:32 PM EST) P athologist Signature POC Glucose 296 (H) 65 - 199 [facility] Comment: Supplemental [...] City/[facility]/ZIP [place] [address] CARDIAC CATHETERIZATION (07/05/2017 6:47 PM EST) Anatomical Region Laterality Modality Other Specimen (Source) Anatomical Location Collection Method / Collectio n Time Received Time / Laterality Volume Narrative 07/05/2017 7:27 PM EST ?[facility] ? Cardiac Cathete rization/Intervention Report ? Patient Name: Natalya, Gregory ? Procedure Date: 07/05/2017 ? A #: [id number] ? Primary Physician: Clarisa, Jet T ? Case #: [id number] ? File Name: [id number] ? Catheterization Order Number: [id number] ? [facility] ? Final Report [place], [place] ? Patient Name: ? Gregory Natalya ?ID#: ?[id number] ? : ?1945 ? Procedure Date: ? [...] presented with: non -STEMI (w/i 7 days). [place] ?[employer]iovascular Society angina c lass was IV. 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 ? Jet Mckenna M.D. ? Electronically Signed by: Jet bunch M.D. ? Report Finalized: 07/05/2017 ??19:23 ? Report Last Ammended: 10/26/2017 ??10:29 ? Procedure Note Jet Mckenna MD - 10/26/2017Formatt ing of this note might be different from the original. [facility] Cardiac Catheterization/Intervention Re port Patient Name: Gregory Hoang Procedure Date: 07/05/2017 A #: [id number] Primary Physician: Jet Mckenna Case #: [id number] File Name: [id number] Catheterization Order Number: [id number] [facility] Final Report [place], [place] Patient Name: Gregory Hoang ID#: [id number] : 1945 Procedure Date: July 05, [...] presented with: non-STEMI ( w/i 7 days). [place] [employer] angina class was IV. No [...] site angiograph y and IABP insertion in track repair laborer. Jet Mckenna M.D. Electronically Signed by: [...] Mccollum ? (Age): 1945(72y) Med Rec#: ? [id number] ?Sex: ?M ? Site Loc: ? [facility] ?Ht / Wt: ??173(cm)/86(kg) Pt. Loc: ?CCU ? BSA: ?2 Study Date: ?? 07/05/2017 ?Pt. Type: Inpatient Tape: ? Referring: Daphne Shahid ([id number]) Referring: MANDA ALCANTAR Reading: Blade Preston ([id number]) Cut To Length Operator: Dayami Paula BA, [facility] [...] E-wave Vmax ?0.8 ?m/sec ? MV deceleration [id number] ?msec ? MV A-wave Vmax ?0.8 ?m/sec [...] ? Mid-Inferior ?Akinetic ? Mid-Inferoseptal ?Hypokinetic ? [place]-Septal ? Akinetic ? [place]-Anterior ? Hypokinetic ? [place]-Lateral ?Hypokinetic ? [place]-Inferior ? Akinetic ? [place]-Tip ?Akinetic ? This report has been electronically sign ed by: _ Blade Preston MD ? 07/06/2017 08 :53:15 Images [facility] Procedure Note Blade Preston MD - 07/06/2017Formatt ing of this note might be different from the original. Procedure: Transthoracic Echocardiogram Patient: NATALYA MCBRIDE(Age): [birth year]72y) Med Rec#: [id number] Sex: M Site Loc: [facility] Ht / Wt: 173(cm)/86(kg) Pt. Loc: CCU BSA: 2 Study Date: 07/05/2017 Pt. Type: Inpatie nt Tape: Referring: Daphne Shahid ([id number]) Referring: MANDA ALCANTAR Reading: Blade Preston ([id number]) Cut To Length Operator: Dayami Paula BA, [facility] [...] MV E-wave Vmax 0.8 m/sec MV deceleration [id number] msec MV A-wave Vmax 0.8 m/sec MV [...] Hypokinetic Mid-Posterolateral Hypokinetic Mid-Inferior Akinetic Mid-Inferoseptal Hypokinetic [place]-Septal Akinetic [place]-Anterior Hypokinetic [place]-Lateral Hypokinetic [place]-Inferior Akinetic [place]-Tip Akinetic This report has been electronically sign ed by: _ Blade Preston MD 07/06/2017 08:53:15 Images reviewed and interpretation verif ied [facility] Cardiac Ultrasound Laboratory Daphne Shahid MD ECHO ORDERABLES Differential, Automated (07/05/2017 4:55 PM EST) athologist Signature Neutrophils % 77.0 % [facility] LABORATORY Neutr Abs (ANC) 5.26 1.70 - [facility] 6.10 [facility] x10(3)/[facility] LABORATORY Lymphocytes % 13.3 % [facility] LABORATORY Lymphocytes Abs 0.9 0.9 - 3.2 [facility] x10(3)/[facility] LABORATORY Monocytes % 8.2 % [facility] LABORATORY Monocyte Abs 0.6 0.3 - 0.9 [facility] x10(3)/[facility] LABORATORY Eosinophils % 0.7 % [facility] LABORATORY Eosinophils Abs 0.0 0.0 - 0.4 [facility] x10(3)/[facility] LABORATORY Basophils % 0.4 % [facility] LABORATORY Basophils Abs 0.0 0.0 - 0.1 [facility] x10(3)/[facility] LABORATORY Immature Gran % 0.40 % [facility] Comment: Immature granulocytes(IG's)percentage an d absolute count will include metamyelocytes, myelocytes, and promyelo cytes. Blood smears from CBCs yielding IG's will be scanned manually for concor danhaley. If this scan disagrees with the automated IG or if promyelocytes are not ed, a manual differential will be performed. Melisa Gran Abs 0.03 0.00 - 0.04 x10(3)/[facility] LABORATORY Specimen Anatomical Collection Method Collection Time Receive d Time (Source) Location / / Volume Laterality Blood specimen 07/05/2017 4:55 PM 017 5:24 (specimen) EST PM EST Resulting Agency Comment Spec In Lab Daphne Shahid MD HEMATOLOGY ORDERABLES Performing Organization Address City/State/[place] [address] (ABNORMAL) Hemogram (07/05/2017 4:55 PM EST) Analysis Performed At Patho logist Time Signature WBC 6.8 4.0 - 9.5 [facility] x10(3)/[facility] LABORATORY RBC 4.67 4.58 - [facility] 5.54 [facility] x10(6)/[facility] LABORATORY Hemoglobin 14.0 13.7 - [facility] 16.5 gm/dL [facility] LABORATORY Hematocrit 41.0 40.5 - [facility] 48.5 % [facility] LABORATORY MCV 87.8 82.9 - [facility] 93.1 [facility] LABORATORY MCH 30.0 27.5 - [facility] 32.1 pg [facility] LABORATORY MCHC 34.1 32.0 - [facility] 35.7 gm/dL [facility] LABORATORY Platelets 197 145 - 357 [facility] x10(3)/[facility] LABORATORY RDWSD 46.4 (H) 36.0 - [facility] 45.0 [facility] LABORATORY RDWCV 14.5 (H) 11.4 - [facility] 13.8 % [facility] LABORATORY MPV 9.7 7.6 - 12.9 [facility] LABORATORY nRBC % Auto 0.0 % [facility] LABORATORY nRBC Abs Auto 0.000 0.000 - [place] 0.000 [facility] x10(3)/[facility] LABORATORY Specimen Anatomical Collection Method Collection Time Receive d Time (Source) Location / / Volume Laterality Blood specimen 07/05/2017 4:55 PM 017 5:24 (specimen) EST PM EST Resulting Agency Comment Spec In Lab Daphne Shahid MD HEMATOLOGY ORDERABLES Performing Organization Address City/State/[place] [address] (ABNORMAL) Cardiac Enzymes (LEB/CGP) (07/05/2017 4:55 PM EST) athologist Signature Troponin-T 1.69 (H) 0.00 - [place] 0.00 ng/mL [facility] LABORATORY Comment: The 99th percentile [...] additional sample may be indicated. Reference: Third Mary Alice Definition of Myocardial Infarction. Journal of the [...] City/[facility]/ZIP Code Phon e Number [address] (ABNORMAL) pro-Brain Natriuretic Peptide (07/05/2017 4:55 PM EST) athologist Signature ProBNP 1,598 (H) <=125 [facility] pg/mL [facility] LABORATORY Specimen Anatomical Collection Method Collection Time Receive d Time (Source) Location / / Volume Laterality Blood specimen 07/05/2017 4:55 PM 017 5:24 (specimen) EST PM EST Resulting Agency Comment Spec In Lab Daphne Shahid MD CHEMISTRY ORDERABLES Performing Organization Address City/[facility]/ZIP Code Phon e Number [address] Magnesium (07/05/2017 4:55 PM EST) athologist Signature Magnesium 0.78 0.69 - 1.07 [facility] mmol/L [facility] LABORATORY Specimen Anatomical Collection Method Collection Time Receive d Time (Source) Location / / Volume Laterality Blood specimen 07/05/2017 4:55 PM 017 5:24 (specimen) EST PM EST Resulting Agency Comment Spec In Lab Daphne Shahid MD CHEMISTRY ORDERABLES Performing Organization Address City/[facility]/ZIP [facility] [place] [address] (ABNORMAL) Basic Metabolic Panel (non-fasting) (07/05/2017 4:55 PM EST) P athologist Signature Glucose Lvl 230 (H) 65 - 199 [facility] mg/dL [facility] LABORATORY Comment: Diabetes: >=200 mg/dL plus symp toms BUN 19 10 - 20 mg/dL [facility] LABORATORY Creatinine 1.04 0.80 - 1.50 [...] CITY [facility] LAB[facility]ORY Estimated GFR >60 >=60 [facility] LABORATORY Comment: The reported eGFR should be multiplied b y 1.2 for patients. The MDRD is not an appropriate measure o f renal function for patients with body mass extremes or in patients with acute kidney failure. http://[employer]/DHnkdep http://[employer]/[facility] Specimen Anatomical Collection Method Collection Time Receive d Time (Source) Location / / Volume Laterality Blood specimen 07/05/2017 4:55 PM 017 5:24 (specimen) EST PM EST Resulting Agency Comment Spec In Lab Daphne Shahid MD CHEMISTRY ORDERABLES Performing Organization Address City/[facility]/ZIP [place] [address] (ABNORMAL) APTT (07/05/2017 4:55 PM EST) P athologist Signature PTT 41 (H) 25 - 35 sec [facility] LABORATORY Comment: The recommended therapeutic range for fu ll dose, unfractionated heparin at [facility] is 80 ? 114 seconds. The use [...] Address City/State/ZIP [place] [address] (ABNORMAL) POCT Glucose (07/05/2017 4:53 PM EST) P athologist Signature POC Glucose 208 (H) 65 - 199 [facility] mg/dL [facility] Comment: Supplemental [...] City/[facility]/ZIP [place] [address] EKG 12 Lead (07/05/2017 4:32 PM EST) Component Value Ref Range Test Analysis Performed Pathologis t Method Time At Signature Ventricular rate 97 BPM MUSE SYSTEM Atrial Rate 97 BPM MUSE SYSTEM P-R Interval 148 ms MUSE SYSTEM QRS Duration 96 ms MUSE SYSTEM Q-T Interval 364 ms MUSE SYSTEM QTC Calculated 462 ms MUSE SYSTEM (Bezet) Calculated P [place] 48 degrees MUSE SYSTEM Calculated R [place] -33 degrees MUSE SYSTEM Calculated T [place] 98 degrees MUSE SYSTEM INTERPRETATION Normal sinus [...] VAMSI)0901 (New Bag - Provider: Em Jones, VMASI)0931 (Stopped - Provider: Em Jones, VAMSI)1738 (New [...] 40 mg 0840 (Given - Pr ovider: mE Jones RN) 0922 (Given - Provider: [...] Rangel RN)1330 (Not Given - Provider: Em oJnes RN - Reason: Contraindicated)2003 (Given - Provider: [...]
Routine documented in this encounter Care Teams Land Degradation Analyst Relationship Specialty Start Date End Date Lovely Vicente MD PCP - General 04/16/[address] [place] [address] [address] [place] [address] documented as of this encounter
--- OUTSIDE RECORDS SUMMARY | 2022-04-13 08:17 | XMS_ITS | Encounter Summary ---
:1945 Author Organization [facility] [place] [address] Care Team Providers Name Role Phone Angela Holliday APRN Primary Care Provider Encounter Details Date Type Department Care Team Description 04/30/2014 Orders Only Endocrinology at [facility] Albertina Palmer, Thyroid cancer [facility] Jorge Boyer MD (Primary Dx) [place] [address] [facility] [phone] CENTER ENDOCRINOLOGY DEPT [place], [place] [address] Social History Tobacco Use Types [...] [facility] [address] [place], [place] [address] (Wo rk) 05/28/2022 Laboratory Appointment Lab 05/28/2022 Office Visit Cardiology Zulma Dolan [place] [facility] [place] [address] Liz Poole PA [facility] [place] [address] 06/10/2022 Office Visit Dermatology Laura Scherer MD [facility] ER [address], [place] [address] (Wo rk) documented as of this encounter Visit Diagnoses Diagnosis Thyroid cancer - Primary Malignant neoplasm of thyroid gland documented in this encounter Care Teams Land Lease Information Clerk Relationship Specialty Start Date End Date Angela Holliday APRN PCP - General 01/25/13 04/15/[address] [place] [address] documented as of this encounter
--- OUTSIDE RECORDS SUMMARY | 2022-04-13 08:17 | XMS_ITS | Encounter Summary ---
:1945 Author Organization [facility] [place] [address] Care Team Providers Name Role Phone Lovely Vicente MD Primary Care Provider Encounter Details Date Type Department Care Team Description 09/03/2016 Office Visit Endocrinology at [facility] Maria Ines Stallings of [facility] [place] [place] [address] [place] [address] ENDOCRINOLOGY DEPT [place], [place] [address] Social History Tobacco Use [...] to his magnesium pill. LUZ PRESCOTT MD International Flight Attendantdata communications analyst Section of Endocrinology [facility] Luz Prescott MD - [...] sonographic evidence of recurrence. LUZ PRESCOTT MD International Flight Attendantdata communications analyst Section of Endocrinology [facility] documented in this encounter Plan of Treatment Upcoming Encounters Date Type Specialty Care Team Description 05/28/2022 Appointment Cardiology Zulma Dloan MD [facility] [address] [place] [address] (Wo rk) 05/28/2022 Laboratory Appointment Lab 05/28/2022 Office Visit Cardiology Zulma Dolan MD [facility] [place] [address] Liz Poole PA [facility] [place] [address] 06/10/2022 Office Visit Dermatology Laura Scherer MD [facility] [address] [place], [place] [address] (Wo rk) documented as of this encounter Results Thyroglobulin (09/07/2017 2:41 PM EST) P athologist Signature Thyroglobulin 1.4 <=54.9 KATALINA RYAN ng/mL [facility] Comment: Thyroglobulin levels may be unreliable a nd falsely low in TgAb positive samples (TgAb <20 is consistent with TgAb negati vity). If Tg Antibodies are present an alternative Tg assay performed via mass spectrometry may be indicated. ??A clinical cutoff of <2.0 ng/ml should be used for athyrotic individuals. Pediatric reference ranges have not been established. Assay performed using the [employer] Immulite T g immunometric assay (lowest detection [...] Prescott MD CHEMISTRY ORDERABLES Performing Organization Address City/[facility]/ZIP Code Phon e Number [address] TSH (09/07/2017 2:41 PM EST) athologist Signature TSH 3.93 0.27 - 4.20 [facility] ml[facility]/ML [facility] Specimen Anatomical Collection Method Collection Time Receive d Time (Source) Location / / Volume Laterality Blood specimen 09/07/2017 2:41 PM 018 2:46 (specimen) EST PM EST Resulting Agency Comment Spec In Lab Luz Prescott MD CHEMISTRY ORDERABLES Performing Organization Address City/[facility] Phon e Number [address] Thyroglobulin (09/03/2016 11:07 AM EST) athologist Signature Thyroglobulin <0.4 <=54.9 [facility] ng/mL [facility] Comment: Interpret with caution. Tg levels [...] than those obtained with T4 withdrawal protocol ([place] BR et al. J Clin Endo Metab 1999;84:5893-9766). Assay performed using the [employer] Immulite T [...] Prescott MD CHEMISTRY ORDERABLES Performing Organization Address City/[facility]/ZIP Code Phon e Number [address] TSH (09/03/2016 11:07 AM EST) P athologist Signature TSH 3.01 0.27 - 4.20 [facility] mcIU/mL [facility] Specimen Anatomical Collection Method Collection Time Receive d Time (Source) Location / / Volume Laterality Blood specimen 09/03/2016 11:07 7 (specimen) AM EST 11:22 AM EST Resulting Agency Comment Spec In Lab Luz Prescott MD CHEMISTRY ORDERABLES Performing Organization Address City/[facility]/[place] [address] documented in this encounter Visit Diagnoses Diagnosis Hx of papillary thyroid carcinoma Personal history of malignant neoplasm o f thyroid documented in this encounter Care Teams Unit Manager [employer] Relationship Specialty Start Date End Date Lovely Vicente MD PCP - General 04/16/[address] [place] [address] documented as of this encounter
--- OUTSIDE RECORDS SUMMARY | 2022-04-13 08:17 | XMS_ITS | Encounter Summary ---
:1945 Author Organization [facility] [place] [address] Care Team Providers Name Role Phone MiyaAngela STACIE Primary Care Provider Encounter Details Date Type Department Care Team Description 04/26/2014 Office Visit Endocrinology at [facility] Albertina Palmer, Papillary thyroid [facility] [place] [address] CENTER [phone] ENDOCRINOLOGY DEPT [place] [address] Social History Tobacco Use Types Packs/Day Years [...] on [place]. Rosalind Palmer Endocrine Staff Physician [facility] Rosalind Palmer MD - 04/26/2014 8:39 AM [...] one yr Rosalind Palmer Endocrine Staff Physician [facility] documented in this encounter Plan of Treatment Upcoming Encounters Date Type Specialty Care Team Description 05/28/2022 Appointment Cardiology Zulma Dolan MD [facility] [address] [place], [place] [address] (Wo rk) 05/28/2022 Laboratory Appointment Lab 05/28/2022 Office Visit Cardiology Zulma Dolan MD [facility] [place] [address] Liz Poole PA [facility] [place] [address] 06/10/2022 Office Visit Dermatology Laura Scherer MD [facility] [address] [place], [place] [address] (Wo rk) documented as of [...] athologist Signature Thyroglobulin <0.4 <=54.9 CERNER ng/mL [facility] Comment: Interpret with caution. Tg levels may [...] BR et al. J Clin Endo Metab 1999;84:0078-1620). Assay performed using the DPC Immulite T [...] Address City/State/ZIP Code Phon e Number [address] CERNER MILLENNIUM (ABNORMAL) [...] Palmer MD CHEMISTRY ORDERABLES Performing Organization Address City/[facility]/ZIP Code Phon e Number [address] CERNER MILLENNIUM documented in this encounter Visit Diagnoses Diagnosis Papillary thyroid carcinoma Malignant neoplasm of thyroid gland documented in this encounter Care Teams Specialty Cook Relationship Specialty Start Date End Date Angela Holliday APRN PCP - General 01/25/13 04/15/[address] [place] [address] documented as of this encounter
--- OUTSIDE RECORDS SUMMARY | 2022-04-13 08:17 | XMS_ITS | Encounter Summary ---
:1945 Author Organization [facility] [address] Care Team Providers Name Role Phone Lovely Vicente MD Primary Care Provider Reason for Visit Reason Onset Date Comments Referral 10/30/2015 Urgent referral for mac on [address] Encounter Details Date Type Department Care Team Description 10/30/2015 Telephone Ophthalmology at [facility] C Jayson Ruiz Referral (Urgent [facility] MD Grabiel referral for mac on [facility] [address] [place]) [place] [address] OPHTHALMOLOGY DEPT. [phone] [place], [place] [address] (Wo rk) Social History Tobacco [...] Dolan MD [facility] [address] [place], [place] [address] (Wo rk) 05/28/2022 Laboratory Appointment Lab 05/28/2022 Office Visit Cardiology Zulma Dolan MD [facility] [place] [address] Liz Poole PA [facility] [place] [address] 06/10/2022 Office Visit Dermatology Laura Scherer MD [facility] [address] [place], [place] [address] (Wo rk) documented as of this encounter Visit Diagnoses Not on filedocumented in this encounter Care Teams Medical Typist Relationship Specialty Start Date End Date Lovely Vicente MD PCP - General 04/16/[address] [place], [place] [id number] documented as of this encounter
--- OUTSIDE RECORDS SUMMARY | 2022-04-13 08:17 | XMS_ITS | Encounter Summary ---
:1945 Author Organization [facility] [place] [address] Care Team Providers Name Role Phone Lovely Vicente MD Primary Care Provider Encounter Details Date Type Department Care Team Description 09/03/2016 Laboratory Appointment Lab at [facility] Hx of [facility] [place] [id number] Social History Tobacco Use Types Packs/Day Years [...] MD [facility] er [address] [place] [address] (Wo rk) 05/28/2022 Laboratory Appointment Lab 05/28/2022 Office Visit Cardiology Zulma Dolan MD [facility] [place] [address] Liz Poole PA [facility] [place] [address] 06/10/2022 Office Visit Dermatology Laura Scherer MD [facility] ER [address] [place], [place] [address] (Wo rk) documented as of [...] AM EST) athologist Signature Thyroglobulin <0.4 <=54.9 [facility] ng/mL [facility] Comment: Interpret with caution. Tg [...] than those obtained with T4 withdrawal protocol ([place] BR et al. J Clin Endo Metab 1999;84:7906-1695). Assay performed using the DPC Immulite T [...] Address City/State/ZIP Code Phon e Number [address] TSH (09/03/2016 11:07 AM EST) P athologist Signature TSH 3.01 0.27 - 4.20 [facility] mcIU/mL [facility] Specimen Anatomical Collection Method Collection Time Receive d Time (Source) Location / / Volume Laterality Blood specimen 09/03/2016 11:07 7 (specimen) AM EST 11:22 AM EST Resulting Agency Comment Spec In Lab Luz Prescott MD CHEMISTRY ORDERABLES Performing Organization Address City/[facility]/ZIP [facility] [place] [address] documented in this encounter Visit Diagnoses Diagnosis Hx of papillary thyroid carcinoma Personal history of malignant neoplasm o f thyroid documented in this encounter Care Teams Supervisor Grips Relationship Specialty Start Date End Date Lovely Vicente MD PCP - General 04/16/[address] [place] [address] documented as of this encounter
--- OUTSIDE RECORDS SUMMARY | 2022-04-13 08:17 | XMS_ITS | Encounter Summary ---
:1945 [place] [address] Care Team Providers Name Role Phone Lovely Vicente MD Primary Care Provider Reason for Visit Auth/Cert Specialty Diagnoses / Procedures Referred By Contact Refer red To Contact Diagnoses STEMI (ST elevation myocardial infarction) NSTEMI STEMI Procedures CARDIAC CATHETERIZATION NAYE IPI Referral ID Status Reason Start Date Expiration Date Visits Requ ested Visits Authorized [id number] 1 1 Encounter Details Date Type Department Care Team Description 07/05/2017 Surgery Cabinet Worker Jet Guan, CARDIAC CATHETERIZATION [facility] [place] [address] CARDIOLOGY DEPT. [phone] [place], [place] [address] (Wo rk) Social History Tobacco [...] this encounter Discharge Summaries Martha Teague S, OPTICAL TECHNICIAN - 07/14/2017 9:38 AM EST Inpatient - Discharge Summary Patient Name: Gregory Hoang Patient Age: 72 y.o. Birthdate: 1945 Language: Tristanian Race: White Ethnicity: Not nor Admit Date: [...] , @ 1:20p Patient to follow-up with Sustainability Purchasing Agent/heart failure team in one week. An appointment will be made for you. You may call [phone] Patient to follow-up with Cardiac Surgery, Dr. Yuan Webber, in ~ 4 weeks with CXR, EKG. Inpatient Provider Contact Information: [facility] Section of Cardiac Surgery [facility] [id number] FAX [phone] Discharge Diagnoses (Hospital Problems) Primary Diagnoses: CAD [...] MD at [facility] OR ??? PRO CABG, ARTERIAL, SINGLE N/A 07/07/2017 @CABG, USING ARTERIAL GRAFT;SINGLE ARTERIAL GRAFT (WRVU 33.75) performed by Yuan Webber MD at [facility] OR ??? PRO CABG, ARTERY-VEIN, TWO N/A 07/07/2017 @CABG, TWO VENOUS GRAFTS & ARTERIAL GRAFT (WRVU 7.93) performed by Yuan Webber MD at [facility] OR ??? PRO COLONOSCOPY, REMV LESN, SNARE 01/16/2014 COLONOSCOPY, POLYPECTOMY, REMOVAL LESION BY SNARE performed by Nohemi Jaimes MD at [facility] ENDOSCOPY ??? PRO ENDOSCOPY W/VIDEO-ASST VEIN HARVEST, CABG Right 07/07/2017 ENDOSCOPIC HARVEST VEIN(S) FOR CABG (WRVU 0.31) performed by Yuan Webber MD at [facility] OR ??? PRO THYROIDECTOMY 03/28/2013 THYROIDECTOMY, TOTAL OR COMPLETE performed by Manny Mcknight MD at [facility] OR Prior To Admission Medications Prescriptions Prior to Admission Medication Sig Dispense Refill Last Dose ??? levothyroxine (SYNTHROID) 175 mcg Tablet Take 1 tablet by mouth daily. 90 tablet 3 07/05/2017 [id number] ??? ascorbic acid, vitamin C, (VITAMIN C) [...] Hospital Course: Gregory Hoang was admitted to [facility] on 07/05/2017 via the Cardiology Service. During his hospital course, he was taken emergently to the laboratory equipment cleaner for an ongoing STEMI. An IABP was [...] not take or discontinue any prescription or edgi-rsi-wiqdexw medications without asking your doctor or pharmacist [...] day to have your insulin doses adjusted. [facility] Endocrine clinic office Discharge Instructions: Call your doctor if: You have a fever of greater than 101 degrees, shaking chills, if you develop redness or drainage from your incision sites, or if you have questions. Please call your surgeon's office if you have any discharge or drainage from your chest incision. Your surgeon, Dr. Yuan Webber and/or the Cardiac Surgery Physician Resident Doctor Team may be reached at . Weight: [...] Dr. Yuan Webber. You may use a [place] Track or treadmill but avoid any pulling [...] with the surgeon. Do not ride motorcycles, [employer] tractors or horses. Avoid the use of [...] should resume a low fat, low cholesterol, [place] Heart Association Diet/Diabetic diet. Driving: No driving [...] , @ 1:20p Patient to follow-up with Sustainability Purchasing Agent/heart failure team in one week. Appointment will be made for you. You may call [phone] Patient to follow-up with Cardiac Surgery, Dr. Yuan Webber, in ~ 4 weeks with CXR, EKG. Cardiac Rehabilitation: Gregory Hoang was seen today regarding participation in the outpatient Phase 2 Cardiac Rehabilitation at [facility]. The patient agrees to a referral to this program. The referral will be sent at discharge and the patient should be contacted by the Program within 1- 2 weeks from discharge. ?? Future Appointments and Orders Future Appointments Provider Department Dept Phone 09/07/2017 3:00 PM LAB, THREE L Lab 3L [facility] [phone] 09/07/2017 4:00 PM Luz Prescott MD [facility] [place] [phone] Future Orders Complete By Expires EKG 12 Lead [EKG1 Custom] 08/14/2017 02/13/2018 Process Instructions: Scheduling Instructions: Questions: Which DH location will this be performed?: [place] Is a rhythm strip needed?: No If EKG Reason is Pre-op Evaluation, indicate diagnosis for surgery.: XR Chest PA & Lateral (Generic) [[id number] Custom] 08/14/2017 02/13/2018 Process Instructions: Scheduling Instructions: Questions: Where will study be performed?: [facility] Portable exam?: Reason for exam and clinical history: CABG x 3 Other pertinent information: Stat read required?: Date of injury if applicable: Requested Time: Referral to Cardiac Rehab [[id number] Custom] As directed Process Instructions: If no progress note charted, please enter Clinical details in comments. Scheduling Instructions: Questions: My question or request is: s/p CABG. Cardiac rehab at [facility] Referral to Home Health - at DISCHARGE [[id number] CPT(R)] As directed Process Instructions: Scheduling Instructions: Comments: DOCUMENTATION FOR VNA SERVICES (INCLUDING THOSE PATIENTS WITH MEDICARE COVERAGE REQUIRING HOME VNA SERVICES AND/OR HOSPICE SERVICES) PATIENT'S LOCATION: Gregory Hoang [address] [place] [address] [place] [address] (home) Telephone Information: Liability Analyst's Name: self In discussion with the attending physician, it is certified that this patient is under their care and that they, or a Nurse Practitioner, or Physician Resident Doctor who is working directly with them, had [...] ([facility] [place] [employer]-[facility] in [place]) PHONE: [phone] FAX: [phone] RN orders: Cardiopulmonary assessment, incisional assessment, assess vital signs, assessment of rehab progress, medication management and effectiveness, home safety evaluation. Please draw INR if indicated and send result to:Dr Vicente [phone] PT ORDERS: Continue rehab for endurance, gait stability and strength with mobility and transfers. Home safety evaluation. Home exercise program if appropriate. Start of Care Date:24-48 hours after discharge SPECIAL INSTRUCTIONS: For any follow up questions, needs, or issues please call the Cardiac Surgery Office at [phone] FOR MEDICARE ONLY: (please delete this section [...] OR AFTER 07/17/2017 Signed: Martha Teague APRN [facility] Section of Cardiac Surgery [facility] [id number] FAX [phone] Date: 07/14/2017 CC: MD Ivania Cr Betsy, PA [address] [place] [phone] documented in this encounter Discharge Instructions Discharge [...] day to have your insulin doses adjusted. [facility] Endocrine clinic office Patient InstructionsStMartha mcdonald APRN [...] not take or discontinue any prescription or xyza-ask-xhdshur medications without asking your doctor or pharmacist [...] day to have your insulin doses adjusted. [facility] Endocrine clinic office ? Discharge Instructions: ?? Call your doctor if: You have a fever of greater than 101 degrees, shaking chills, if you develop redness or drainage from your incision sites, or if you have questions. Please call your surgeon's office if you have any discharge or drainage from your chest incision. Your surgeon, Dr. Yuan Webber and/or the Cardiac Surgery Physician Resident Doctor Team may be reached at . ?? [...] Dr. Yuan Webber. You may use a [place] Track or treadmill but avoid any pulling [...] with the surgeon. Do not ride motorcycles, [employer] tractors or horses. Avoid the use of [...] should resume a low fat, low cholesterol, [place] Heart Association Diet/Diabetic diet. ?? Driving: No [...] @ 1:20p ?? Patient to follow-up with Sustainability Purchasing Agent/heart failure team in one week. An appointment has been made for you, you can call [phone] ?? Patient to follow-up with Cardiac Surgery, Dr. Yuan Webber, in ~ 4 weeks with CXR, EKG. ? Cardiac Rehabilitation: Gregory Hoang??was seen today regarding participation in the outpatient Phase 2 Cardiac Rehabilitation at [facility]. ?? The patient agrees to a referral to this program.? The referral will be sent at discharge and the patient should be contacted by the Program within 1- 2 weeks from discharge. ? Future Appointments and Orders Future Appointments Provider Department Dept Phone ?? 09/07/2017 3:00 PM LAB, THREE L Lab 3L [facility] [phone] ?? 09/07/2017 4:00 PM Luz Prescott MD [facility] [place] [phone] Future Orders Complete By Expires ?? EKG 12 Lead [EKG1 Custom] 08/14/2017 02/13/2018 ?? Process Instructions: ? Scheduling Instructions: ? Questions: ? Which location will this be performed?: [place] ?? Is a rhythm strip needed?: No ?? If EKG Reason is Pre-op Evaluation, indicate diagnosis for surgery.: ?? XR Chest PA & Lateral (Generic) [[id number] Custom] 08/14/2017 02/13/2018 ?? Process Instructions: ? Scheduling Instructions: ? Questions: ? Where will study be performed?: [facility] ?? Portable exam?: ?? Reason for exam and clinical history: CABG x 3 ?? Other pertinent information: ?? Stat read required?: ?? Date of injury if applicable: ?? Requested Time: ?? Referral to Cardiac Rehab [OEW689 Custom] As directed ? Process Instructions: ?? If no progress note charted, please enter Clinical details in comments. ?? Scheduling Instructions: ? Questions: ? My question or request is: s/p CABG. Cardiac rehab at [facility] ? Arrangements for VNA/home care: As [...] RN - 07/14/2017 2:34 PM EST The patient/client relations representative has been provided a list of Home Health Agencies/DME vendors which serve their preferred geographic area. A letter describing our affiliations was reviewed with them and theywere educated about their right to choose where referrals are placed. Patient requests referral to [facility]. PHONE: [phone] FAX: [phone] Expected date of discharge: 07/14 Referral routed to the Project Development Director for matching with agency/vendor and to [...] day to have your insulin doses adjusted. [facility] Endocrine clinic office Kathie Carrera APRN [facility] Endocrinology Diabetes Management Pager [phone] 20 minutes of this 35 minute visit was spent with the patient in counseling on diabetes and treatment plan, reviewing all glucose and insulin data as well as relevant laboratory results with the patient, and coordination of care on the inpatient unit including nursing and primary team. Zulma Andres RN - 07/14/2017 10:30 AM EST The patient/client relations representative has been provided a list of Home Health Agencies/DME vendors which serve their preferred geographic area. A letter describing our affiliations was reviewed with them and theywere educated about their right to choose where referrals are placed. Patient requests referral to : Yasmani Munguia ([facility] [place] [facility]-is in [place]) PHONE: [phone] FAX: [phone]. Expected date of discharge: 07/14/17 Referral routed to the Project Development Director for matching with agency/vendor and to [...] hours. If BG remains greater than 240, xmemaj23 units (no more than three times) &??call [...] Will continue to follow Katerin Azul APRN [facility] Endocrinology Diabetes Management Pager [phone] minutes of this 25 minute visit [...] of infiltration/extravasation Discussed plan of care with FNP and RN. Elevate exrtemity and apply intermittent Warm compresses. Name of MD contacted Dr. Shaw Brown 07/13/2017 @ 0655 Name of RN contacted Ale Rangel RN Name of Pharmacist if consulted NA Name of Plastics MD ( if consulted) NA (Mandatory photo for infiltrations/ extravasations scoring a stage 2 or greater, but recommended forstage 1)( include measuring tape and identifier in the photo) AGENCY DIRECTOR CARING FOR THIS PATIENT WILL CONTINUE [...] measuring tape and identifier in the photo) AGENCY DIRECTOR CARING FOR THIS PATIENT WILL CONTINUE [...] both infiltrates addressed by this telegraphic typewriter operator.All of Mr. Hoang's responses were entirely appropriate. Images of infiltrates attached here. Martha Sharp APRN - 07/13/2017 8:01 AM EST Cardiac Surgery Progress Note: ID: [id number] 72 year old male POD#6 s/p CABGx3 [...] discharge. ?? I have met with the patient/client relations representative to discuss discharge planning needs. I have provided the [facility], Office of Care Management letter from the [employer] Principal pertaining to rehab referrals. I have also provided a letter describing our affiliations within the [facility] and educated them about their right to choose where referrals are placed. ?? I reviewed the different levels of rehab including SNF, swing, acute and LTAC with the patient/client relations representative. ?? The patient/client relations representative has been provided a list of facilities within their preferred geographic area. ?? I have requested that the patient/client relations representative provide at least three choices for referral. ?? The patient/client relations representative have requested referrals to: ?? 1. . ?? 2. [facility] ?? 3. More to be entered ?? Expected date of discharge: 07/14 Note routed to Project Development Director who will communicate referrals to facilities [...] hours. If BG remains greater than 240, nrtitu95 units (no more than three times) & [...] hours. If BG remains greater than 240, vlizqc50 units (no more than three times) & call for new basal insulin orders. ??If less than 240 after two hours, give no insulin and resume prior schedule. Will continue to follow Katerin Azul APRN [facility] Endocrinology Diabetes Management Pager [phone] 20 minutes of this 35 minute visit was spent with the patient in counseling on diabetes and treatment plan, reviewing all glucose and insulin data as well as relevant laboratory results with the patient, and coordination of care on the inpatient unit including nursing and primary team. Makayla Stevenson APRN - 07/12/2017 9:52 AM EST Cardiac Surgery Progress Note: ID: [id number] 72 year old male POD#5 s/p CABGx3 [...] 7:18 PM EST Patient arrived from [facility]. VSS. MSI dressing pulled off with fresh [...] hours. If BG remains greater than 240, ilvlly29 units (no more than three times) & [...] AM EST Cardiac Surgery Progress Note: ID: [id number] 72 year old male POD#4 s/p CABGx3 [...] them as documented. MARCK DIAMOND MD Samy Maldoando MD - 07/10/2017 9:37 AM EST Cardiac Surgery Progress Note: ID: [id number] 72 year old male POD#3 s/p CABGx3 [...] Gas) No results found for: PHART, PO2ART, RWF2GLV Assessment/Plan: 72 year old male POD#3 s/p [...] Mami Thao - 07/09/2017 6:29 PM EST [employer] Encounter Note Patient Name: Gregory Hoang : [id number] MR#: [id number] Admit Date: 07/05/2017 4:20 PM Hospital Day 4 days Narrative: Patient was sitting in chair, hugging heart pillow, opened his eyes, nodding to come into room Assessment: Patient was sleepy. Intervention and Outcome: Introduced alligator hunter services and patient reached his hand out in appreciation. Follow-up: [employer] remains available for support. Time in Direct [...] AM EST Cardiac Surgery Progress Note: ID: [id number] 72 year old male POD#2 s/p CABGx3 [...] Attending Surgeon on rounds. Signed: STEPHANIE Iqbal [facility] Section of Cardiac Surgery Date: [...] when IABP d/c'ed. Gretchen Carolina, PT Pager [phone] Maddison Cee PA - 07/08/2017 11:27 AM EST Cardiac Surgery Progress Note: ID: [id number] 72 year old male POD#1 s/p CABGx3 [...] Attending Surgeon on rounds. Signed: STEPHANIE Iqbal [facility] Section of Cardiac Surgery Date: [...] in place in R femoral. No hematoma. SURGICAL TECHNOLOGY INSTRUCTOR- Intact Psych- Anxious Skin- Dry, no [...] intact. IABP in place in R femoral. SURGICAL TECHNOLOGY INSTRUCTOR- Intact Psych- Anxious Skin- Dry, no [...] note for details. DAPHNE SHAHID MD Pager [phone] Jet Mckenna MD - 07/05/2017 6:48 PM EST Preliminary Cardiac Catheterization Procedure Note: Procedure(s) performed: Left heart cath, IABP insertion Access: Right NEWS CONTENT SPECIALIST-->8fr IABP A time-out was conducted prior [...] Heparin gtt maintained. Pt transferred to laboratory equipment cleaner. documented in this encounter H&P Notes Daphne Shahid MD - 07/05/2017 6:08 PM EST CARDIOLOGY HISTORY & PHYSICAL EXAM Date of Admission: 07/05/2017 ( Hospital Day 0 days ) Responsible Attending: Daphne Shahid MD PCP: Lovely Vicente MD PCP#: [phone] Patient Active Problem List Diagnosis Code ??? [...] with heparin drip and transferred to [facility]. While there, continued sob, question of chest pain. Stat TTE showing WMA diffusely and EF around 20%. No significant valvular disease. Taken to the laboratory equipment cleaner urgently for ongoing STEMI. [facility] Labs: INR 1.0 WBC 5.88 Hgb [...] I/O - s/p lasix in the laboratory equipment cleaner, redose to aim net neg 1L by [...] Medicine, PGY-2 Cardiology S1, Team Pager # [phone] CARDIOLOGY ATTENDING NOTE Patient: Gregory Hoang Date [...] amenable for PCI. DAPHNE SHAHID MD Pager [phone] documented in this encounter Miscellaneous Notes Consult Note - Daphne Shahid MD - 07/14/2017 11:46 AM EST Heart Failure Service Inpatient Consult Note Gregory Hoang Date of : 1945 Age: 72 y.o. Today's date: 07/14/17 PCP: Lovely Vicente MD POSTAL CARRIER: None Place [place] Service[place] [facility] Reason for Consult: Dr. [...] MD at [facility] OR ??? PRO CABG, ARTERIAL, SINGLE N/A 07/07/2017 @CABG, USING ARTERIAL GRAFT;SINGLE ARTERIAL GRAFT (WRVU 33.75) performed by Yuan Webber MD at [facility] OR ??? PRO CABG, ARTERY-VEIN, TWO N/A 07/07/2017 @CABG, TWO VENOUS GRAFTS & ARTERIAL GRAFT (WRVU 7.93) performed by Yuan Webber MD at [facility] OR ??? PRO COLONOSCOPY, REMV LESN, SNARE 01/16/2014 COLONOSCOPY, POLYPECTOMY, REMOVAL LESION BY SNARE performed by Nohemi Jaimes MD at [facility] ENDOSCOPY ??? PRO ENDOSCOPY W/VIDEO-ASST VEIN HARVEST, CABG Right 07/07/2017 ENDOSCOPIC HARVEST VEIN(S) FOR CABG (WRVU 0.31) performed by Yuan Webber MD at [facility] OR ??? PRO THYROIDECTOMY 03/28/2013 THYROIDECTOMY, TOTAL OR COMPLETE performed by Manny Mcknight MD at [facility] OR Outpt Meds: Current Outpatient [...] following studies: EKG 07/14/17: NSR 75 bpm, LIGHTING ADVISER anterior infarct, LAD CXR 07/11/17: FINDINGS: Sternotomy wires. The patient has been extubated, left chest tube removed, and [place]i catheter removed since the 07/07/2017 study. Atelectasis [...] was discussed with Zehra. Jaden Kelley MD Digital Printer Pager [phone] CARDIOLOGY ATTENDING NOTE Patient: Gregory Hoang Date [...] heart failure clinic. DAPHNE SHAHID MD Pager [phone] Plan of Care - Alden Chavarria PTA [...] sit/sit to supine -- Bed Mobility Goal, [place] Level supervision required -- Bed Mobility Goal, [...] - 3 days -- Gait Training Goal, [place] Level supervision required -- Gait Training Goal, [...] days -- Transfer Training Goal, Activity Type yoy-cn-fbedo/trfco-qh-qow;vcz-td-yokab/gloeh-xh-xox;toilet -- Transfer Train Goal, [place] Level supervision required -- Transfer Training Goal, [...] keeping present for 2 days per family. Cover Remover noted of frustrations, house keeping sent to room. Patient offered showered twice, refused. at bedside, frustrated that shower not complete, informed that patient had refused several times. requesting to see ALL TERRAIN VEHICLE RACER, paged sent to Martha, will come to bedside (middle of consult). not willing to wait, Martha notified that family had gone home. Encouraged to come for morning rounds a t 8am. Diabetes team at bedside - insulin adjustments made. Call cabello in reach. Continue to monitor. PLAN MOVING FORWARD: Ambulate, dressing changes BID, Please change drsg at 4am per Martha ALL TERRAIN VEHICLE RACER request. INDIVIDUALIZED FALL PREVENTION INTERVENTIONS: Patient-specific fall [...] levels on the lower side, 60ml of [place] juice given after a FS of 80. [...] monitoring required during toileting and ADLs]: RN FNP Surveillance [continuous indirect monitoring]: Barrett Monitor CPG [...] Anticipated Discharge Disposition: home with assist Pager: [phone] CLARISSA SEGAL, PT 07/12/2017 Physical Therapy Rehabilitation [...] to sit/sit to supine Bed Mobility Goal, [place] Level supervision required Bed Mobility Goal, Additional Goal adheres to psternal precautions for transfer Goal: Gait Training Goal Stand Alone Therapy Goal Outcome: Ongoing (Interventions Implemented as Appropriate) 07/12/17 1225 Gait Training Goal Gait Training Goal, Date Established 07/12/17 Gait Training Goal, Time to Achieve 2 - 3 days Gait Training Goal, [place] Level supervision required Gait Training Goal, Assist [...] 3 days Transfer Training Goal, Activity Type bvg-zj-yjrks/whuje-av-kkj;txi-gj-clfib/cpkxm-kg-rzh;toilet Transfer Train Goal, [place] Level supervision required Transfer Training Goal, Additional Goal adheres to sternal precautions during transfer Consult Note - Octavia Vaughn RN - 07/12/2017 10:50 AM EST [facility] CARDIAC REHABILITATION Gregory Hoang was seen today regarding participation in the outpatient Phase 2 Cardiac Rehabilitation at [facility]. The patient agrees to a referral [...] IV site, amio to other piv and MOTOR AND GENERATOR BRUSH CUTTER at bedside to help assess, IV removed. [...] staff, he stood and marched in place. [place] weak, wanting to sit back down. Remained [...] Health/Prescription Coverage: Primary Insurance: MEDICARE Secondary Insurance: [employer] [place] Prescription Coverage: yes Preferred Pharmacy: [facility] Other: none Primary Care Provider: Lovely Vicente MD [phone] Patient/Caregiver Goals of Treatment:live and get my breath back Potential Needs for Transition of Care: Rehab/SNF: [facility] Home Health: NA DME: TBD Dialysis: na Community Resources: available Transportation: yes Other: none Anticipated Barriers to Discharge/Special Considerations: none Plan: Likely SNF Rehab before home A member of the Care Management team will continue to monitor progress, follow for continuity of care and assist with transition of care planning. ERLIN Weiss Pager: [phone] Consult Note - Katerin Azul RN - [...] potential to d/c gtt and start CF. fulfillment associate diabetes care: Medications - Outpatient treatment regimen recommendations pending based on the hospital course. Monitoring - continue BG tid ac & hs Diet - low fat/low carb diet Exercise - weight-bearing exercise 30 min/day, as tolerated Thank you for allowing us to provide care for your patient W/E coverage, Dr. Jeane Tatum, pager [phone] Katerin Azul APRN Endocrinology Diabetes Management Pager [phone] Plan of Care - Stephanie Godoy, RN [...] Webber MD - 07/07/2017 6:27 PM EST [facility] Operative Note Patient Name: Gregory Hoang : [id number] MR#: [id number] Case Date: 07/07/2017 Surgeon: Surgeon(s) and Role: * Yuan Webber MD - Primary * Michael Drake PA - Physician Resident Doctor * Linda Flores PA - Physician Resident Doctor Preoperative diagnosis: 3VD Postoperative diagnosis: CAD, severe [...] Operative Note Patient Name: Gregory Hoang : [id number] MR#: [id number] Case Date: 07/07/2017 Surgeon: Surgeon(s) and Role: * Yuan Webber MD - Primary * Michael Drake PA - Physician Resident Doctor * Linda Flores PA - Physician Resident Doctor Preoperative diagnosis: 3VD Postoperative diagnosis: CAD, severe [...] (reference Cardiac: ACS (Acute Coronary Syndrome) (Adult) [facility]). 07/07/17621 Cardiac: ACS (Acute Coronary [...] Hahn, MS3 [employer] [facility] Cardiology S1 (Pager [phone]) Plan of Care - Emelia Ibarra RN [...] performed by Manny Mcknight MD at [facility] MAIN OR ??? PRO COLONOSCOPY, REMV LESN, SNARE 01/16/2014 COLONOSCOPY, POLYPECTOMY, REMOVAL LESION BY SNARE performed by Nohemi Jaimes MD at [facility] ENDOSCOPY ??? PRO THYROIDECTOMY 03/28/2013 THYROIDECTOMY, TOTAL OR COMPLETE performed by Manny Mcknight MD at [facility] MAIN OR Social History: Social [...] with other involved physicians Yuan Webber MD [phone] Med Student Progress Note - Katty Hahn [...] BiPAP - s/p lasix in the laboratory equipment cleaner, was net -1.5L - s/p plavix load, [...] FULL - Dispo: CVCC Katty Hahn, M3 [facility] Cardiology S1 (Pager [phone]) Plan of Care - Stephanie Godoy RN - 07/06/2017 5:00 AM EST Problem: Patient Care Overview Goal: Plan of Care Review 07/06/17 1176 Coping/Psychosocial Plan Of Care Reviewed With patient;family [...] urinal without difficulty. Lasix given in laboratory equipment cleaner, 1.4 L out at this time. Pt [...] Outcome: Ongoing (Interventions Implemented as Appropriate) 07/06/17 3466 Cardiac: ACS (Acute Coronary Syndrome) Problems Assessed [...] Zulma Dolan MD [facility] [place], [place] [address] (Wo rk) 05/28/2022 Laboratory Appointment Lab 05/28/2022 Office Visit Cardiology Zulma Dolan MD [facility] [place] [address] Liz Poole PA [facility] [place] [address] 06/10/2022 Office Visit Dermatology Laura Scherer MD [facility] [address] [place], [place] [address] (Wo rk) Scheduled Orders Name [...] procedure are i n the results section. WELDER METAL FAB SCAN 07/15/2017 12:00 Res ults for this [...] Routine 07/08/2017 4:00 Results f or this ([facility]) AM EST procedure are i n the [...] Routine 07/07/2017 5:15 Results f or this ([facility]) AM EST procedure are i n the [...] Routine 07/06/2017 7:40 Results f or this ([facility]) PM EST procedure are i n the [...] Timed 07/06/2017 2:10 Results f or this ([facility]) PM EST procedure are i n the [...] section. TYPE AND SCREEN Routine 07/06/2017 12:00 ([facility]) PM EST APTT STAT 07/06/2017 11:24 Results [...] Routine 07/06/2017 8:10 Results f or this ([facility]) AM EST procedure are i n the [...] Routine 07/06/2017 2:20 Results f or this ([facility]) AM EST procedure are i n the [...] Routine 07/05/2017 8:20 Results f or this ([facility]) PM EST procedure are i n the [...] Timed 07/05/2017 4:55 Results f or this ([facility]) PM EST procedure are i n the [...] 2017 EXAMINATION: XR CHEST PA AND LATERAL (CloupiaIC) CLINICAL HISTORY: CABG x 3 TECHNIQUE: PA [...] Teague APRN IMG DX ORDERABLES SCAN DOC: WELDER METAL FAB (07/15/2017 12:00 AM EST) Narrative 07/15/2017 12:00 [...] Signature POC Glucose 186 65 - 199 [facility] mg/dL [facility] Comment: Supplemental ranges: <140 mg/dL before meals <180 mg/dL all other times of the day Specimen Anatomical Collection Method Collection Time Receive d Time (Source) Location / / Volume Laterality Blood specimen 07/14/2017 11:56 7 (specimen) AM EST 11:56 AM EST Yuan Webber MD POINT OF CARE TEST ORDERABLE S Performing Organization Address City/State/[place] [address] POCT Glucose (07/14/2017 7:52 AM EST) athologist Signature POC Glucose 126 65 - 199 [facility] mg/dL [facility] Comment: Supplemental ranges: <140 mg/dL before meals <180 mg/dL all other times of the day Specimen Anatomical Collection Method Collection Time Receive d Time (Source) Location / / Volume Laterality Blood specimen 07/14/2017 7:52 AM 017 7:52 (specimen) EST AM EST Yuan Webber MD POINT OF CARE TEST ORDERABLE S Performing Organization Address [facility]/[place] [address] (ABNORMAL) Prothrombin Time (07/14/2017 [...] City/[facility] [place] [address] Potassium (07/14/2017 4:46 AM EST) athologist Signature Potassium 4.3 3.5 - 5.0 [facility] mmol/L [facility] Comment: Please note: ??Patients with [...] Address City/State/ZIP Code Phon e Number [address] POCT Glucose (07/14/2017 4:34 AM EST) athologist Signature POC Glucose 115 65 - 199 [place] mg/dL [facility] Comment: Supplemental ranges: <140 mg/dL [...] [facility]/ZIP Code Phon e Number [address] POCT Glucose (07/13/2017 11:33 PM EST) athologist Signature POC Glucose 132 65 - 199 [place] mg/dL [facility] Comment: Supplemental ranges: <140 mg/dL [...] Center/ZIP Code Phon e [place] [address] POCT Glucose (07/13/2017 9:25 PM EST) athologist Signature POC Glucose 121 65 - 199 [place] mg/dL [facility] Comment: Supplemental ranges: <140 mg/dL before meals <180 mg/dL all other times of the day Specimen Anatomical Collection Method Collection Time Receive d Time (Source) Location / / Volume Laterality Blood specimen 07/13/2017 9:25 PM 017 9:25 (specimen) EST PM EST Yuan Webber MD POINT OF CARE TEST ORDERABLE S Performing Organization Address City/State/ZIP Code Phon e Number [address] POCT Glucose (07/13/2017 4:55 PM EST) athologist Signature POC Glucose 79 65 - 199 [facility] [place] mg/dL [facility] Comment: Supplemental ranges: <140 mg/dL before meals <180 mg/dL all other times of the day Specimen Anatomical Collection Method Collection Time Receive d Time (Source) Location / / Volume Laterality Blood specimen 07/13/2017 4:55 PM 017 4:55 (specimen) EST PM EST Yuan Webber MD POINT OF CARE TEST ORDERABLE S Performing Organization Address City/State/ZIP Code Phon e Number [address] POCT Glucose (07/13/2017 11:16 AM EST) athologist Signature POC Glucose 163 65 - 199 [facility] mg/dL [facility] Comment: Supplemental ranges: <140 mg/dL before meals <180 mg/dL all other times of the day Specimen Anatomical Collection Method Collection Time Receive d Time (Source) Location / / Volume Laterality Blood specimen 07/13/2017 11:16 7 (specimen) AM EST 11:16 AM EST Yuan Webber MD POINT OF CARE TEST ORDERABLE S Performing Organization Address City/State/ZIP Code Phon e Number [place] [id number] POCT Glucose (07/13/2017 8:07 AM EST) athologist Signature POC Glucose 96 65 - 199 [facility] mg/dL [facility] Comment: Supplemental ranges: <140 mg/dL before meals <180 mg/dL all other times of the day Specimen Anatomical Collection Method Collection Time Receive d Time (Source) Location / / Volume Laterality Blood specimen 07/13/2017 8:07 AM 017 8:07 (specimen) EST AM EST Yuan Webber MD POINT OF CARE TEST ORDERABLE S Performing Organization Address City/State/[place] [address] (ABNORMAL) Prothrombin Time (07/13/2017 [...] Address City/State/[place] [address] (ABNORMAL) Basic Metabolic Panel (non-fasting) (07/13/2017 4:26 AM EST) athologist Signature Glucose Lvl 95 65 - 199 [facility] mg/dL [facility] Comment: [...] [facility] Estimated GFR 60 >=60 [facility] Comment: The reported eGFR should be multiplied b y 1.2 for patients. The MDRD is not an appropriate measure o f renal function for patients with body mass extremes or in patients with acute kidney failure. http://[employer]/DHnkdep http://[employer]/DHMCnkf Specimen Anatomical Collection Method Collection Time Receive d Time (Source) Location / / Volume Laterality Blood specimen 07/13/2017 4:26 AM 017 4:46 (specimen) EST AM EST Resulting Agency Comment Spec In Lab Makayla Wilson APRN CHEMISTRY ORDERABLES Performing Organization Address City/[facility]/ZIP Code Phon e Number [address] POCT Glucose (07/13/2017 3:52 AM EST) athologist Signature POC Glucose 93 65 - 199 [facility] mg/dL [facility] Comment: Supplemental ranges: <140 mg/dL before meals <180 mg/dL all other times of the day Specimen Anatomical Collection Method Collection Time Receive d Time (Source) Location / / Volume Laterality Blood specimen 07/13/2017 3:52 AM 017 3:52 (specimen) EST AM EST Yuan Webber MD POINT OF CARE TEST ORDERABLE S Performing Organization Address City/State/ZIP Code Phon e Number [address] POCT Glucose (07/13/2017 12:21 AM EST) athologist Signature POC Glucose 80 65 - 199 [facility] Comment: Supplemental ranges: <140 mg/dL before meals <180 mg/dL all other times of the day Specimen Anatomical Collection Method Collection Time Receive d Time (Source) Location / / Volume Laterality Blood specimen 07/13/2017 12:21 7 (specimen) AM EST 12:21 AM EST Yuan Webber MD POINT OF CARE TEST ORDERABLE S Performing Organization Address City/State/ZIP Code Phon e Number [address] POCT Glucose (07/12/2017 8:22 PM EST) P athologist Signature POC Glucose 119 65 - 199 [place] mg/dL [facility] Comment: Supplemental ranges: <140 mg/dL [...] [facility]/ZIP Code Phon e Number [address] POCT Glucose (07/12/2017 4:02 PM EST) athologist Signature POC Glucose 114 65 - 199 [place] mg/dL [facility] Comment: Supplemental ranges: <140 mg/dL before meals <180 mg/dL all other times of the day Specimen Anatomical Collection Method Collection Time Receive d Time (Source) Location / / Volume Laterality Blood specimen 07/12/2017 4:02 PM 017 4:02 (specimen) EST PM EST Yuan Webber MD POINT OF CARE TEST ORDERABLE S Performing Organization Address City/State/ZIP Code Phon e Number [address] POCT Glucose (07/12/2017 11:28 AM EST) P athologist Signature POC Glucose 164 65 - 199 [facility] mg/dL [facility] Comment: Supplemental ranges: <140 mg/dL before meals <180 mg/dL all other times of the day Specimen Anatomical Collection Method Collection Time Receive d Time (Source) Location / / Volume Laterality Blood specimen 07/12/2017 11:28 7 (specimen) AM EST 11:28 AM EST Yuan Webber MD POINT OF CARE TEST ORDERABLE S Performing Organization Address City/State/ZIP Code Phon e Number [address] POCT Glucose (07/12/2017 7:34 AM EST) athologist Signature POC Glucose 109 65 - 199 [facility] mg/dL [facility] Comment: Supplemental ranges: <140 mg/dL before meals <180 mg/dL all other times of the day Specimen Anatomical Collection Method Collection Time Receive d Time (Source) Location / / Volume Laterality Blood specimen 07/12/2017 7:34 AM 017 7:34 (specimen) EST AM EST Yuan Webber MD POINT OF CARE TEST ORDERABLE S Performing Organization Address City/State/[place] [address] (ABNORMAL) Basic Metabolic Panel (non-fasting) (07/12/2017 4:11 AM EST) athologist Signature Glucose Lvl 92 65 - 199 [facility] mg/dL [facility] Comment: Diabetes: [...] or in patients with acute kidney failure. http://[employer]/DHnkdep http://[employer]/DHMCnkf Specimen Anatomical Collection Method Collection Time Receive d Time (Source) Location / / Volume Laterality Blood specimen 07/12/2017 4:11 AM 017 8:57 (specimen) EST AM EST Resulting Agency Comment Spec [facility]IE CHEMISTRY ORDERABLES Performing Organization Address [facility] [place] [address] (ABNORMAL) Prothrombin Time (07/12/2017 [...] City/[facility] Phon e Number [address] Potassium (07/12/2017 4:11 AM EST) P athologist Signature Potassium 3.8 3.5 - 5.0 [facility]/L [facility] Comment: Please note: ??Patients with [...] [facility]/ZIP Code Phon e Number [address] POCT Glucose (07/12/2017 4:10 AM EST) athologist Signature POC Glucose 90 65 - 199 [facility] mg/dL [facility] Comment: Supplemental ranges: <140 mg/dL [...] [facility]/ZIP Code Phon e Number [address] POCT Glucose (07/11/2017 11:57 PM EST) athologist Signature POC Glucose 98 65 - [address] [facility] Comment: Supplemental ranges: <140 mg/dL [...] [facility]/ZIP Code Phon e Number [address] POCT Glucose (07/11/2017 8:32 PM EST) P athologist Signature POC Glucose 146 65 - 199 [place] mg/dL [facility] Comment: Supplemental ranges: <140 mg/dL before meals <180 mg/dL all other times of the day Specimen Anatomical Collection Method Collection Time Receive d Time (Source) Location / / Volume Laterality Blood specimen 07/11/2017 8:32 PM 017 8:32 (specimen) EST PM EST Yuan Webber MD POINT OF CARE TEST ORDERABLE S Performing Organization Address City/State/ZIP Code Phon e Number [facility] [address] XR Chest PA & [...] e xtubated, left chest tube removed, and [place]-Suzi catheter removed since the study. Atelectasis at [...] e xtubated, left chest tube removed, and [place]-Suzi catheter removed since the study. Atelectasis at [...] (H) 65 - 199 [place] mg/dL [facility] Comment: Supplemental ranges: <140 mg/dL before meals <180 mg/dL all other times of the day Specimen Anatomical Collection Method Collection Time Receive d Time (Source) Location / / Volume Laterality Blood specimen 07/11/2017 4:05 PM 017 4:05 (specimen) EST PM EST Yuan Webber MD POINT OF CARE TEST ORDERABLE S Performing Organization Address City/State/[place] [address] POCT Glucose (07/11/2017 11:55 AM EST) athologist Signature POC Glucose 176 65 - 199 [place] mg/dL [facility] Comment: Supplemental ranges: <140 mg/dL before meals <180 mg/dL all other times of the day Specimen Anatomical Collection Method Collection Time Receive d Time (Source) Location / / Volume Laterality Blood specimen 07/11/2017 11:55 7 (specimen) AM EST 11:55 AM EST Yuan Webber MD POINT OF CARE TEST ORDERABLE S Performing Organization Address City/State/[place] [address] POCT Glucose (07/11/2017 7:53 AM EST) athologist Signature POC Glucose 189 65 - 199 [place] mg/dL [facility] Comment: Supplemental ranges: <140 mg/dL [...] [facility]/ZIP Code Phon e Number [address] POCT Glucose (07/11/2017 4:22 AM EST) athologist Signature POC Glucose 151 65 - 199 [place] mg/dL [facility] Comment: Supplemental ranges: <140 mg/dL before meals <180 mg/dL all other times of the day Specimen Anatomical Collection Method Collection Time Receive d Time (Source) Location / / Volume Laterality Blood specimen 07/11/2017 4:22 AM 017 4:22 (specimen) EST AM EST Yuan Webber MD POINT OF CARE TEST ORDERABLE S Performing Organization Address City/[facility] [place] [address] Potassium (07/11/2017 2:20 AM EST) athologist Signature Potassium 4.5 3.5 - 5.0 [facility] mmol/L [facility] Comment: Please note: ??Patients with [...] [facility]/ZIP Code Phon e Number [address] POCT Glucose (07/11/2017 12:17 AM EST) athologist Signature POC Glucose 162 65 - [address] [facility] Comment: Supplemental ranges: <140 mg/dL before meals <180 mg/dL all other times of the day Specimen Anatomical Collection Method Collection Time Receive d Time (Source) Location / / Volume Laterality Blood specimen 07/11/2017 12:17 7 (specimen) AM EST 12:17 AM EST Yuan Webber MD POINT OF CARE TEST ORDERABLE S Performing Organization Address City/State/[place] [address] POCT Glucose (07/10/2017 8:47 PM EST) athologist Signature POC Glucose 191 65 - 199 [place] mg/dL [facility] Comment: Supplemental ranges: <140 mg/dL before meals <180 mg/dL all other times of the day Specimen Anatomical Collection Method Collection Time Receive d Time (Source) Location / / Volume Laterality Blood specimen 07/10/2017 8:47 PM 017 8:47 (specimen) EST PM EST Yuan Webber MD POINT OF CARE TEST ORDERABLE S Performing Organization Address City/State/[place] [address] POCT Glucose (07/10/2017 4:06 PM EST) athologist Signature POC Glucose 131 65 - 199 [place] mg/dL [facility] Comment: Supplemental ranges: <140 mg/dL before meals <180 mg/dL all other times of the day Specimen Anatomical Collection Method Collection Time Receive d Time (Source) Location / / Volume Laterality Blood specimen 07/10/2017 4:06 PM 017 4:06 (specimen) EST PM EST Yuan Webber MD POINT OF CARE TEST ORDERABLE S Performing Organization Address City/State/[place] [address] POCT Glucose (07/10/2017 3:08 PM EST) athologist Signature POC Glucose 151 65 - 199 [place] mg/dL [facility] Comment: Supplemental ranges: <140 mg/dL before meals <180 mg/dL all other times of the day Specimen Anatomical Collection Method Collection Time Receive d Time (Source) Location / / Volume Laterality Blood specimen 07/10/2017 3:08 PM 017 3:08 (specimen) EST PM EST Yuan Webber MD POINT OF CARE TEST ORDERABLE S Performing Organization Address City/State/ZIP Code Phon e Number [address] POCT Glucose (07/10/2017 2:25 PM EST) athologist Signature POC Glucose 146 65 - 199 [place] mg/dL [facility] Comment: Supplemental ranges: <140 mg/dL before meals <180 mg/dL all other times of the day Specimen Anatomical Collection Method Collection Time Receive d Time (Source) Location / / Volume Laterality Blood specimen 07/10/2017 2:25 PM 017 2:25 (specimen) EST PM EST Yuan Webber MD POINT OF CARE TEST ORDERABLE S Performing Organization Address City/State/[place] [address] POCT Glucose (07/10/2017 1:23 PM EST) athologist Signature POC Glucose 166 65 - 199 [place] mg/dL [facility] Comment: Supplemental ranges: <140 mg/dL before meals <180 mg/dL all other times of the day Specimen Anatomical Collection Method Collection Time Receive d Time (Source) Location / / Volume Laterality Blood specimen 07/10/2017 1:23 PM 017 1:23 (specimen) EST PM EST Yuan Webber MD POINT OF CARE TEST ORDERABLE S Performing Organization Address City/State/[place] [address] POCT Glucose (07/10/2017 11:52 AM EST) athologist Signature POC Glucose 157 65 - 199 [place] mg/dL [facility] Comment: Supplemental ranges: <140 mg/dL [...] [facility]/ZIP Code Phon e Number [address] POCT Glucose (07/10/2017 11:01 AM EST) P athologist Signature POC Glucose 158 65 - 199 [place] mg/dL [facility] Comment: Supplemental ranges: <140 mg/dL [...] [facility]/ZIP Code Phon e Number [address] POCT Glucose (07/10/2017 9:54 AM EST) P athologist Signature POC Glucose 160 65 - 199 [place] mg/dL [facility] Comment: Supplemental ranges: <140 mg/dL before meals <180 mg/dL all other times of the day Specimen Anatomical Collection Method Collection Time Receive d Time (Source) Location / / Volume Laterality Blood specimen 07/10/2017 9:54 AM 017 9:54 (specimen) EST AM EST Yuan Webber MD POINT OF CARE TEST ORDERABLE S Performing Organization Address City/State/ZIP Code Phon e Number [address] POCT Glucose (07/10/2017 8:58 AM EST) P athologist Signature POC Glucose 183 65 - 199 [facility] mg/dL [facility] Comment: Supplemental ranges: <140 mg/dL before meals <180 mg/dL all other times of the day Specimen Anatomical Collection Method Collection Time Receive d Time (Source) Location / / Volume Laterality Blood specimen 07/10/2017 8:58 AM 017 8:58 (specimen) EST AM EST Yuan Webber MD POINT OF CARE TEST ORDERABLE S Performing Organization Address City/State/ZIP Code Phon e Number [address] POCT Glucose (07/10/2017 8:01 AM EST) athologist Signature POC Glucose 173 65 - 199 [place] mg/dL [facility] Comment: Supplemental ranges: <140 mg/dL before meals <180 mg/dL all other times of the day Specimen Anatomical Collection Method Collection Time Receive d Time (Source) Location / / Volume Laterality Blood specimen 07/10/2017 8:01 AM 017 8:01 (specimen) EST AM EST Yuan Webber MD POINT OF CARE TEST ORDERABLE S Performing Organization Address City/State/ZIP Code Phon e Number [address] POCT Glucose (07/10/2017 7:05 AM EST) athologist Signature POC Glucose 166 65 - 199 [place] mg/dL [facility] Comment: Supplemental ranges: <140 mg/dL before meals <180 mg/dL all other times of the day Specimen Anatomical Collection Method Collection Time Receive d Time (Source) Location / / Volume Laterality Blood specimen 07/10/2017 7:05 AM 017 7:05 (specimen) EST AM EST Yuan Webber MD POINT OF CARE TEST ORDERABLE S Performing Organization Address City/State/[place] [address] POCT Glucose (07/10/2017 6:00 AM EST) athologist Signature POC Glucose 162 65 - 199 KATALINA RYAN mg/dL [facility] Comment: Supplemental ranges: <140 mg/dL before meals <180 mg/dL all other times of the day Specimen Anatomical Collection Method Collection Time Receive d Time (Source) Location / / Volume Laterality Blood specimen 07/10/2017 6:00 AM 017 6:00 (specimen) EST AM EST Yuan Webber MD POINT OF CARE TEST ORDERABLE S Performing Organization Address City/State/ZIP Code Phon e Number [address] (ABNORMAL) Differential, Automated (07/10/2017 4:28 AM EST) [facility] Method Time Signature Neutrophils % 87.9 % [facility] Neutr Abs (ANC) 10.70 (H) 1.70 - [facility] 6.10 [facility] x10(3)/[facility] L LABORATORY Lymphocytes % 3.9 % [facility] Lymphocytes Abs 0.5 (L) 0.9 - 3.2 [facility] x10(3)/[facility] LABORATORY Monocytes % 7.0 % [facility] Monocyte Abs 0.8 0.3 - 0.9 [facility] x10(3)/[facility] LABORATORY Eosinophils % 0.3 % [facility] Eosinophils Abs 0.0 0.0 - 0.4 [facility] x10(3)/[facility] LABORATORY Basophils % 0.2 % [facility] Basophils Abs 0.0 0.0 - 0.1 [facility] x10(3)/[facility] LABORATORY Immature Gran % 0.70 % [facility] [...] Gran Abs 0.08 (H) 0.00 - 0.04 x10(3)/[facility] LABORATORY Specimen Anatomical Collection Method Collection Time Receive d Time (Source) Location / / Volume Laterality Blood specimen 07/10/2017 4:28 AM 017 4:36 (specimen) EST AM EST Resulting Agency Comment Spec In Lab Yuan Webber MD HEMATOLOGY ORDERABLES Performing Organization Address City/[facility]/[place] [address] (ABNORMAL) Hemogram (07/10/2017 4:28 AM EST) Analysis Performed At Patho logist Time Signature WBC 12.2 (H) 4.0 - 9.5 [facility] x10(3)/[facility] LABORATORY RBC 3.31 (L) 4.58 - [place]INA RYAN 5.54 [facility] x10(6)/[facility] LABORATORY Hemoglobin 9.8 (L) 13.7 - [facility] 16.5 gm/dL [facility] Hematocrit 30.0 (L) 40.5 - [facility] 48.5 % [facility] MCV 90.6 82.9 - [facility] 93.1 [facility] LABORATORY MCH 29.6 27.5 - [facility] 32.1 pg [facility] MCHC 32.7 32.0 - [facility] 35.7 gm/dL [facility] Platelets 135 (L) 145 - 357 [facility] x10(3)/[facility] LABORATORY RDWSD 50.8 (H) 36.0 - [facility] 45.0 [facility] LABORATORY RDWCV 15.4 (H) 11.4 - [facility] 13.8 % [facility] MPV 10.0 7.6 - 12.9 [facility] LABORATORY nRBC % Auto 0.0 % [facility] nRBC Abs Auto 0.000 0.000 - [facility] 0.000 [facility] x10(3)/[facility] LABORATORY Specimen Anatomical Collection Method Collection Time Receive d Time (Source) Location / / Volume Laterality Blood specimen 07/10/2017 4:28 AM 017 4:36 (specimen) EST AM EST Resulting Agency Comment Spec In Lab Yuan Webber MD HEMATOLOGY ORDERABLES Performing Organization Address City/State/[place] [address] (ABNORMAL) Basic Metabolic Panel (non-fasting) (07/10/2017 4:28 AM EST) P athologist Signature Glucose Lvl 178 65 - 199 [facility] mg/dL [facility] Comment: [...] [facility] Estimated GFR 60 >=60 [facility] Comment: The reported eGFR should be multiplied b y 1.2 for patients. The MDRD is not an appropriate measure o f renal function for patients with body mass extremes or in patients with acute kidney failure. [email or web address]/DHnkdep [email or web address]/DHMCnkf Specimen Anatomical Collection Method Collection Time Receive d Time (Source) Location / / Volume Laterality Blood specimen 07/10/2017 4:28 AM 017 4:36 (specimen) EST AM EST Resulting Agency Comment Spec In Lab Yuan Webber MD CHEMISTRY ORDERABLES Performing Organization Address City/State/[place] [address] POCT Glucose (07/10/2017 4:26 AM EST) P athologist Signature POC Glucose 176 65 - 199 [facility] mg/dL [facility] Comment: Supplemental ranges: <140 mg/dL [...] [facility]/ZIP Code Phon e Number [address] (ABNORMAL) POCT Glucose (07/10/2017 3:06 AM EST) P athologist Signature POC Glucose 204 (H) 65 - 199 KATALINA RYAN mg/dL [facility] Comment: Supplemental ranges: <140 mg/dL [...] [facility]/[place] [address] (ABNORMAL) POCT Glucose (07/10/2017 2:10 AM EST) P athologist Signature POC Glucose 203 (H) 65 - [address] [facility] Comment: Supplemental ranges: <140 mg/dL before meals <180 mg/dL all other times of the day Specimen Anatomical Collection Method Collection Time Receive d Time (Source) Location / / Volume Laterality Blood specimen 07/10/2017 2:10 AM 017 2:10 (specimen) EST AM EST Yuan Webber MD POINT OF CARE TEST ORDERABLE S Performing Organization Address City/State/ZIP Code Phon e Number [address] POCT Glucose (07/10/2017 1:09 AM EST) P athologist Signature POC Glucose 196 65 - 199 [facility] RYAN mg/dL [facility] Comment: Supplemental ranges: <140 mg/dL before meals <180 mg/dL all other times of the day Specimen Anatomical Collection Method Collection Time Receive d Time (Source) Location / / Volume Laterality Blood specimen 07/10/2017 1:09 AM 2 017 1:09 (specimen) EST AM EST Yuan Webber MD POINT OF CARE TEST ORDERABLE S Performing Organization Address City/State/ZIP Code Phon e Number [address] POCT Glucose (07/10/2017 12:10 AM EST) P athologist Signature POC Glucose 173 65 - 199 KATALINA ZHAORYAN mg/dL [facility] Comment: Supplemental ranges: <140 mg/dL before meals <180 mg/dL all other times of the day Specimen Anatomical Collection Method Collection Time Receive d Time (Source) Location / / Volume Laterality Blood specimen 07/10/2017 12:10 7 (specimen) AM EST 12:10 AM EST Yuan Webber MD POINT OF CARE TEST ORDERABLE S Performing Organization Address City/State/ZIP Code Phon e Number [address] POCT Glucose (07/09/2017 11:01 PM EST) athologist Signature POC Glucose 140 65 - 199 KATALINA ZHAORYAN mg/dL [facility] Comment: Supplemental ranges: <140 mg/dL before meals <180 mg/dL all other times of the day Specimen Anatomical Collection Method Collection Time Receive d Time (Source) Location / / Volume Laterality Blood specimen 07/09/2017 11:01 7 (specimen) PM EST 11:01 PM EST Yuan Webber MD POINT OF CARE TEST ORDERABLE S Performing Organization Address City/State/ZIP Code Phon e Number [address] POCT Glucose (07/09/2017 10:05 PM EST) P athologist Signature POC Glucose 144 65 - 199 [facility] RYAN mg/dL [facility] Comment: Supplemental ranges: <140 mg/dL before meals <180 mg/dL all other times of the day Specimen Anatomical Collection Method Collection Time Receive d Time (Source) Location / / Volume Laterality Blood specimen 07/09/2017 10:05 7 (specimen) PM EST 10:05 PM EST Yuan Webber MD POINT OF CARE TEST ORDERABLE S Performing Organization Address City/State/ZIP Code Phon e Number [address] POCT Glucose (07/09/2017 9:31 PM EST) athologist Signature POC Glucose 121 65 - 199 KATALINA ZHAORYAN mg/dL [facility] Comment: Supplemental ranges: <140 mg/dL [...] [facility]/ZIP Code Phon e Number [address] POCT Glucose (07/09/2017 9:03 PM EST) athologist Signature POC Glucose 98 65 - 199 KATALINA ZHAORYAN mg/dL [facility] Comment: Supplemental ranges: <140 mg/dL [...] [facility]/ZIP Code Phon e Number [address] POCT Glucose (07/09/2017 8:09 PM EST) athologist Signature POC Glucose 117 65 - 199 KATALINA RYAN mg/dL [facility] Comment: Supplemental ranges: <140 mg/dL before meals <180 mg/dL all other times of the day Specimen Anatomical Collection Method Collection Time Receive d Time (Source) Location / / Volume Laterality Blood specimen 07/09/2017 8:09 PM 017 8:09 (specimen) EST PM EST Yuan Webber MD POINT OF CARE TEST ORDERABLE S Performing Organization Address City/State/ZIP Code Phon e Number [address] POCT Glucose (07/09/2017 5:40 PM EST) athologist Signature POC Glucose 155 65 - 199 KATALINA ZHAORYAN mg/dL [facility] Comment: Supplemental ranges: <140 mg/dL before meals <180 mg/dL all other times of the day Specimen Anatomical Collection Method Collection Time Receive d Time (Source) Location / / Volume Laterality Blood specimen 07/09/2017 5:40 PM 017 5:40 (specimen) EST PM EST Yuan Webber MD POINT OF CARE TEST ORDERABLE S Performing Organization Address City/State/ZIP Code Phon e Number [address] POCT Glucose (07/09/2017 4:24 PM EST) athologist Signature POC Glucose 164 65 - 199 KATALINA RYAN mg/dL [facility] Comment: Supplemental ranges: <140 mg/dL before meals <180 mg/dL all other times of the day Specimen Anatomical Collection Method Collection Time Receive d Time (Source) Location / / Volume Laterality Blood specimen 07/09/2017 4:24 PM 017 4:24 (specimen) EST PM EST Yuan Webber MD POINT OF CARE TEST ORDERABLE S Performing Organization Address City/State/ZIP Code Phon e Number [address] POCT Glucose (07/09/2017 3:19 PM EST) athologist Signature POC Glucose 166 65 - 199 KATALINA RYAN mg/dL [facility] Comment: Supplemental ranges: <140 mg/dL before meals <180 mg/dL all other times of the day Specimen Anatomical Collection Method Collection Time Receive d Time (Source) Location / / Volume Laterality Blood specimen 07/09/2017 3:19 PM 017 3:19 (specimen) EST PM EST Yuan Webber MD POINT OF CARE TEST ORDERABLE S Performing Organization Address City/State/[place] [address] POCT Glucose (07/09/2017 2:26 PM EST) athologist Signature POC Glucose 179 65 - 199 KATALINA ZHAORYAN mg/dL [facility] Comment: Supplemental ranges: <140 mg/dL [...] [facility]/[place] [address] (ABNORMAL) POCT Glucose (07/09/2017 1:29 PM EST) athologist Signature POC Glucose 210 (H) 65 - 199 KATALINA RYAN mg/dL [facility] Comment: Supplemental ranges: <140 mg/dL [...] [facility]/[place] [address] POCT Glucose (07/09/2017 12:20 PM EST) athologist Signature POC Glucose 172 65 - 199 KATALINA ZHAORYAN mg/dL [facility] Comment: Supplemental ranges: <140 mg/dL before meals <180 mg/dL all other times of the day Specimen Anatomical Collection Method Collection Time Receive d Time (Source) Location / / Volume Laterality Blood specimen 07/09/2017 12:20 7 (specimen) PM EST 12:20 PM EST Yuan Webber MD POINT OF CARE TEST ORDERABLE S Performing Organization Address City/State/ZIP Code Phon e Number [address] POCT Glucose (07/09/2017 11:24 AM EST) P athologist Signature POC Glucose 156 65 - 199 KATALINA ZHAORYAN mg/dL [facility] Comment: Supplemental ranges: <140 mg/dL before meals <180 mg/dL all other times of the day Specimen Anatomical Collection Method Collection Time Receive d Time (Source) Location / / Volume Laterality Blood specimen 07/09/2017 11:24 7 (specimen) AM EST 11:24 AM EST Yuan Webber MD POINT OF CARE TEST ORDERABLE S Performing Organization Address City/State/ZIP Code Phon e Number [address] POCT Glucose (07/09/2017 11:11 AM EST) athologist Signature POC Glucose 172 65 - 199 [place] mg/dL [facility] Comment: Supplemental ranges: <140 mg/dL before meals <180 mg/dL all other times of the day Specimen Anatomical Collection Method Collection Time Receive d Time (Source) Location / / Volume Laterality Blood specimen 07/09/2017 11:11 7 (specimen) AM EST 11:11 AM EST Yuan Webber MD POINT OF CARE TEST ORDERABLE S Performing Organization Address City/State/ZIP Code Phon e Number [place], [place] [id number] [place] [address] POCT Glucose (07/09/2017 10:08 AM EST) P athologist Signature POC Glucose 176 65 - 199 KATALINA ZHAORYAN mg/dL [facility] Comment: Supplemental ranges: <140 mg/dL before meals <180 mg/dL all other times of the day Specimen Anatomical Collection Method Collection Time Receive d Time (Source) Location / / Volume Laterality Blood specimen 07/09/2017 10:08 7 (specimen) AM EST 10:08 AM EST Yuan Webber MD POINT OF CARE TEST ORDERABLE S Performing Organization Address City/State/ZIP Code [place] [address] POCT Glucose (07/09/2017 8:02 AM EST) P athologist Signature POC Glucose 178 65 - 199 [facility] mg/dL [facility] Comment: Supplemental ranges: <140 mg/dL before meals <180 mg/dL all other times of the day Specimen Anatomical Collection Method Collection Time Receive d Time (Source) Location / / Volume Laterality Blood specimen 07/09/2017 8:02 AM 017 8:02 (specimen) EST AM EST Yuan Webber MD POINT OF CARE TEST ORDERABLE S Performing Organization Address City/State/[place] [address] (ABNORMAL) BLOOD GAS 2 ARTERIAL (07/09/2017 5:37 AM EST) Analysis Performed At Patho logist Time Signature pH Art 7.36 7.35 - [facility] 7.45 [facility] pCO2 Art 38 35 - 45 [facility] LABORATORY pO2 Art 79 (L) 85 - 104 [facility] LABORATORY HCO3 Art 20.9 20.0 - [facility] 26.0 [facility] mmol/L [facility] LABORATORY BE Art -4.6 (L) -3.0 - 3.0 [facility] mmol/L [facility] Hgb Blood Gas 10.5 (L) 13.7 - [facility] 16.5 gm/dL [facility] O2HB Art 93.8 (L) 94.0 - [facility] 97.0 % [facility] COHB Art 0.3 % [facility] FIO2 Art 40 % [facility] PF Ratio Art 198 [facility]OR[facility]ORY Specimen Anatomical Collection Method Collection Time Receive d Time (Source) Location / / Volume Laterality Blood specimen 07/09/2017 5:37 AM 017 5:37 (specimen) EST AM EST Yuan Webber MD CHEMISTRY ORDERABLES Performing Organization Address City/State/ZIP Code Phon e Number [address] POCT Glucose (07/09/2017 3:27 AM EST) athologist Signature POC Glucose 192 65 - 199 [facility] mg/dL [facility] Comment: Supplemental ranges: <140 mg/dL [...] [facility]/[place] [address] (ABNORMAL) Basic Metabolic Panel (non-fasting) (07/09/2017 2:30 AM EST) P athologist Signature Glucose Lvl 179 65 - 199 [facility] mg/dL [facility] Comment: [...] or in patients with acute kidney failure. [email or web address] [email or web address] Specimen Anatomical Collection Method Collection Time Receive d Time (Source) Location / / Volume Laterality Blood specimen Venous Draw / 07/09/2017 2:30 AM 2016 2:42 (specimen) Unknown EST AM EST Resulting Agency Comment Spec In Lab Yuan Webber MD CHEMISTRY ORDERABLES Performing Organization Address City/State/[place] [address] (ABNORMAL) Potassium (07/09/2017 2:30 AM EST) P athologist Signature Potassium 5.1 (H) 3.5 - 5.0 [facility] mmol/L [facility] Comment: Please note: ??Patients with [...] Organization Address City/State/[place] [address] (ABNORMAL) Hemogram (07/09/2017 2:30 AM EST) Analysis Performed At Patho logist Time Signature WBC 12.5 (H) 4.0 - 9.5 [facility] x10(3)/[facility] LABORATORY RBC 3.38 (L) 4.58 - [facility] 5.54 [facility] x10(6)/[facility] LABORATORY Hemoglobin 10.1 (L) 13.7 - [facility] 16.5 gm/dL [facility] Hematocrit 30.3 (L) 40.5 - [facility] 48.5 % [facility] MCV 89.6 82.9 - [facility] 93.1 [facility] LABORATORY MCH 29.9 27.5 - K[place]ALINA RYAN 32.1 pg [facility] MCHC 33.3 32.0 - [facility] 35.7 gm/dL [facility] Platelets 127 (L) 145 - 357 [facility] x10(3)/[facility] LABORATORY RDWSD 49.3 (H) 36.0 - K[place]ALINA RYAN 45.0 [facility] LABORATORY RDWCV 15.2 (H) 11.4 - [facility] RYNA 13.8 % [facility] MPV 9.9 7.6 - 12.9 [facility] LABORATORY nRBC % Auto 0.0 % [facility] nRBC Abs Auto 0.000 0.000 - [place] RYAN 0.000 [facility] x10(3)/[facility] LABORATORY Specimen Anatomical Collection Method Collection Time Receive d Time (Source) Location / / Volume Laterality Blood specimen 07/09/2017 2:30 AM 017 2:41 (specimen) EST AM EST Resulting Agency Comment Spec In Lab Yuan Webber MD HEMATOLOGY ORDERABLES Performing Organization Address City/[facility]/[place] [address] POCT Glucose (07/09/2017 2:10 AM EST) P athologist Signature POC Glucose 169 65 - 199 KATALINA RYAN mg/dL [facility] Comment: Supplemental ranges: <140 mg/dL [...] [facility]/[place] [address] POCT Glucose (07/09/2017 1:01 AM EST) P athologist Signature POC Glucose 173 65 - 199 KATALINA ZHAORYAN mg/dL [facility] Comment: Supplemental ranges: <140 mg/dL [...] [facility]/[place] [address] Blood culture (07/09/2017 12:40 AM EST) Patholo gist Method Time Signature Blood Culture No growth [place]ALINA VILLAREALCOCK at 5 days. [facility] Specimen Anatomical Collection Method Collection Time Receive d Time (Source) Location / / Volume Laterality Blood specimen STRUCTURE OF RIGHT 07/09/2017 12:40 3:58 (specimen) UPPER LIMB / AM EST AM EST Unknown Resulting Agency Comment Spec In Lab Yuan Webber MD MICROBIOLOGY - BLOOD ORDERAB LES Performing Organization Address City/State/[place] [address] Blood culture (07/09/2017 12:30 AM EST) Patholo gist Method Time Signature Blood Culture No growth KATALINA DAVIS at 5 days. [facility] Specimen Anatomical Collection Method Collection [...] [facility]/[place] [address] (ABNORMAL) Urinalysis Microscopic Exam (07/09/2017 12:05 AM EST) Analysis Performed At Patho logist Time Signature RBC UA 32 (H) 0 - 3 /HPF [facility] WBC UA 5 (H) 0 - 3 /HPF [facility] Squam Epith UA <1 <=4 /HPF [facility] Hyaline Cast 17 (H) 0 - 2 /LPF [facility]ORY Gran Cast UA 1 (H) <=0 /LPF [facility] Uric Ac Bianca Rare (A) None /HPF [facility] Specimen (Source) Anatomical Collection Method Collection Time Re ceived Time Location / / Volume Laterality Urine specimen 07/09/2017 12:05 7 obtained via AM EST 12:39 AM EST indwelling urinary catheter (specimen) Resulting Agency Comment Spec In Lab Yuan Webber MD URINE ORDERABLES Performing Organization Address City/State/[place] [address] (ABNORMAL) Urinalysis with reflex Culture (07/09/2017 12:05 AM EST) [facility] gist Method Time Signature Glucose UA Negative Negative [facility] mg/dL [facility] Protein UA 30 (A) Negative [facility]/dL [facility] Bilirubin UA Negative Negative [facility] mg/dL [facility] Comment: Clinical correlation required for [...] [facility] Leukocytes UA Negative Negative [facility] LABORATORY Appearance UA Hazy (A) Clear [facility] LABORATORY Spec [place] UA 1.025 1.002 - 1.030 [facility] LAB[facility] Color UA Yellow Yellow [facility] LABORATORY Culture Reflexed No [facility] [...] [facility]/[place] [address] POCT Glucose (07/08/2017 11:01 PM EST) P athologist Signature POC Glucose 191 65 - 199 [facility] mg/dL [facility] Comment: Supplemental ranges: <140 mg/dL before meals <180 mg/dL all other times of the day Specimen Anatomical Collection Method Collection Time Receive d Time (Source) Location / / Volume Laterality Blood specimen 07/08/2017 11:01 7 (specimen) PM EST 11:01 PM EST Yuan Webber MD POINT OF CARE TEST ORDERABLE S Performing Organization Address City/State/ZIP Code [place] [address] POCT Glucose (07/08/2017 10:04 PM EST) athologist Signature POC Glucose 198 65 - [address] [facility] mg/dL [facility] Comment: Supplemental ranges: <140 mg/dL before meals <180 mg/dL all other times of the day Specimen Anatomical Collection Method Collection Time Receive d Time (Source) Location / / Volume Laterality Blood specimen 07/08/2017 10:04 7 (specimen) PM EST 10:04 PM EST Yuan Webber MD POINT OF CARE TEST ORDERABLE S Performing Organization Address City/State/[place] [address] Prepare Albumin 5% in [...] Address City/State/[place] [address] POCT Glucose (07/08/2017 8:28 PM EST) athologist Signature POC Glucose 195 65 - [address] [facility] mg/dL [facility] Comment: Supplemental ranges: <140 mg/dL before meals <180 mg/dL all other times of the day Specimen Anatomical Collection Method Collection Time Receive d Time (Source) Location / / Volume Laterality Blood specimen 07/08/2017 8:28 PM 017 8:28 (specimen) EST PM EST Yuan Webber MD POINT OF CARE TEST ORDERABLE S Performing Organization Address City/State/[place] [address] (ABNORMAL) POCT Glucose (07/08/2017 7:13 PM EST) P athologist Signature POC Glucose 220 (H) 65 - 199 [facility] mg/dL [facility] Comment: Supplemental ranges: <140 mg/dL before meals <180 mg/dL all other times of the day Specimen Anatomical Collection Method Collection Time Receive d Time (Source) Location / / Volume Laterality Blood specimen 07/08/2017 7:13 PM 017 7:13 (specimen) EST PM EST Yuan Webber MD POINT OF CARE TEST ORDERABLE S Performing Organization Address City/State/ZIP Code Phon e Number [address] POCT Glucose (07/08/2017 5:04 PM EST) athologist Signature POC Glucose 147 65 - 199 [facility] mg/dL [facility] Comment: Supplemental ranges: <140 mg/dL before meals <180 mg/dL all other times of the day Specimen Anatomical Collection Method Collection Time Receive d Time (Source) Location / / Volume Laterality Blood specimen 07/08/2017 5:04 PM 017 5:04 (specimen) EST PM EST Yuan Webber MD POINT OF CARE TEST ORDERABLE S Performing Organization Address City/State/[place] [address] (ABNORMAL) BLOOD GAS 2 ARTERIAL (07/08/2017 4:13 PM EST) Analysis Performed At Patho logist Time Signature pH Art 7.38 7.35 - [facility] 7.45 [facility]OR[facility]ORY pCO2 Art 36 35 - 45 [facility] LABORATORY pO2 Art 91 85 - 104 [facility] LABORATORY HCO3 Art 20.9 20.0 - [facility] 26.0 [facility] mmol/L [facility] LABORATORY BE Art -4.2 (L) -3.0 - 3.0 [facility] mmol/L [facility] Hgb Blood Gas 11.7 (L) 13.7 - [facility] 16.5 gm/dL [facility] LABORATORY O2HB Art 95.1 94.0 - [facility] 97.0 % [facility] LABOR[facility]ORY COHB Art 0.6 % [facility] FIO2 Art 40 % [facility] LABORATORY PF Ratio Art 228 [facility] LABORATORY Specimen Anatomical Collection Method Collection Time Receive d Time (Source) Location / / Volume Laterality Blood specimen 07/08/2017 4:13 PM 017 4:13 (specimen) EST PM EST Yuan Webber MD CHEMISTRY ORDERABLES Performing Organization Address City/State/[place] [address] POCT Glucose (07/08/2017 4:01 PM EST) P athologist Signature POC Glucose 148 65 - 199 [facility] mg/dL [facility] Comment: Supplemental ranges: <140 mg/dL before meals <180 mg/dL all other times of the day Specimen Anatomical Collection Method Collection Time Receive d Time (Source) Location / / Volume Laterality Blood specimen 07/08/2017 4:01 PM 12/14/2 017 4:01 (specimen) EST PM EST Yuan Webber MD POINT OF CARE TEST ORDERABLE S Performing Organization Address City/State/ZIP Code Phon e Number [address] POCT Glucose (07/08/2017 3:21 PM EST) athologist Signature POC Glucose 118 65 - 199 [facility] mg/dL [facility] Comment: Supplemental ranges: <140 mg/dL [...] [facility]/ZIP Code Phon e Number [address] POCT Glucose (07/08/2017 2:01 PM EST) athologist Signature POC Glucose 129 65 - 199 [facility] mg/dL [facility] Comment: Supplemental ranges: <140 mg/dL before meals <180 mg/dL all other times of the day Specimen Anatomical Collection Method Collection Time Receive d Time (Source) Location / / Volume Laterality Blood specimen 07/08/2017 2:01 PM 017 2:01 (specimen) EST PM EST Yuan Webber MD POINT OF CARE TEST ORDERABLE S Performing Organization Address City/State/[place] [address] POCT Glucose (07/08/2017 11:53 AM EST) athologist Signature POC Glucose 156 65 - 199 [facility] mg/dL [facility] Comment: Supplemental ranges: <140 mg/dL before meals <180 mg/dL all other times of the day Specimen Anatomical Collection Method Collection Time Receive d Time (Source) Location / / Volume Laterality Blood specimen 07/08/2017 11:53 7 (specimen) AM EST 11:53 AM EST Yuan Webber MD POINT OF CARE TEST ORDERABLE S Performing Organization Address City/State/[place] [address] POCT Glucose (07/08/2017 11:04 AM EST) P athologist Signature POC Glucose 181 65 - 199 [facility] mg/dL [facility] Comment: Supplemental ranges: <140 mg/dL [...] [facility]/[place] [address] (ABNORMAL) POCT Glucose (07/08/2017 9:24 AM EST) athologist Signature POC Glucose 203 (H) 65 - [address] [facility] Comment: Supplemental ranges: <140 mg/dL [...] [facility]/[place] [address] APTT (07/08/2017 8:40 AM EST) athologist Signature PTT 33 25 - 35 sec [facility] LAB[facility]ORY Comment: The recommended therapeutic range for fu ll dose, unfractionated heparin at [facility] is 80 ? 114 seconds. The use [...] Address City/State/[place] [address] (ABNORMAL) Prothrombin Time (07/08/2017 [...] [facility]/[place] [address] (ABNORMAL) POCT Glucose (07/08/2017 7:38 AM EST) P athologist Signature POC Glucose 232 (H) 65 - 199 [facility] mg/dL [facility] Comment: Supplemental ranges: <140 mg/dL [...] [facility]/[place] [address] (ABNORMAL) POCT Glucose (07/08/2017 7:07 AM EST) athologist Signature POC Glucose 234 (H) 65 - [address] [facility]dL [facility] Comment: Supplemental ranges: <140 mg/dL before meals <180 mg/dL all other times of the day Specimen Anatomical Collection Method Collection Time Receive d Time (Source) Location / / Volume Laterality Blood specimen 07/08/2017 7:07 AM 017 7:07 (specimen) EST AM EST Yuan Webber MD POINT OF CARE TEST ORDERABLE S Performing Organization Address City/State/[place] [address] (ABNORMAL) POCT Glucose (07/08/2017 6:04 AM EST) athologist Signature POC Glucose 225 (H) 65 - 199 [facility] mg/dL [facility] Comment: Supplemental ranges: <140 mg/dL [...] [facility]/[place] [address] (ABNORMAL) POCT Glucose (07/08/2017 5:31 AM EST) athologist Signature POC Glucose 216 (H) 65 - [address] [facility] Comment: Supplemental ranges: <140 mg/dL before meals <180 mg/dL all other times of the day Specimen Anatomical Collection Method Collection Time Receive d Time (Source) Location / / Volume Laterality Blood specimen 07/08/2017 5:31 AM 017 5:31 (specimen) EST AM EST Yuan Webber MD POINT OF CARE TEST ORDERABLE S Performing Organization Address City/State/[place] [address] (ABNORMAL) POCT Glucose (07/08/2017 4:52 AM EST) P athologist Signature POC Glucose 257 (H) 65 - 199 [facility] mg/dL [facility] Comment: Supplemental ranges: <140 mg/dL before meals <180 mg/dL all other times of the day Specimen Anatomical Collection Method Collection Time Receive d Time (Source) Location / / Volume Laterality Blood specimen 07/08/2017 4:52 AM 017 4:52 (specimen) EST AM EST Daphne Shahid MD POINT OF CARE TEST ORDERABLE S Performing Organization Address City/State/[place] [address] (ABNORMAL) BLOOD GAS 2 ARTERIAL (07/08/2017 4:04 AM EST) Analysis Performed At Patho logist Time Signature pH Art 7.30 (L) 7.35 - [facility] 7.45 [facility] LABOR[facility]ORY pCO2 Art 41 35 - 45 [facility] LABORATORY pO2 Art 83 (L) 85 - 104 [facility] LABORATORY HCO3 Art 19.6 (L) 20.0 - [facility] 26.0 [facility] mmol/[facility] LABORATORY BE Art -6.8 (L) -3.0 - 3.0 [facility] mmol/L [facility]OR[facility] Hgb Blood Gas 12.2 (L) 13.7 - [facility] 16.5 gm/dL [facility] O2HB Art 93.5 (L) 94.0 - [facility] 97.0 % [facility]ORATORY COHB Art 0.4 % [facility] Comment: Noted by instrumentation specialist. FIO2 Art 40 % [facility] LABORATORY PF Ratio Art 208 [facility] LABORATORY Specimen Anatomical Collection Method Collection Time Receive d Time (Source) Location / / Volume Laterality Blood specimen 07/08/2017 4:04 AM 017 4:04 (specimen) EST AM EST Daphne Shahid MD CHEMISTRY ORDERABLES Performing Organization Address City/State/ZIP Code Phon e Number [address] Scan, Peripheral Blood (07/08/2017 [...] Address City/State/ZIP Code Phon e Number [address] (ABNORMAL) Differential, Automated (07/08/2017 4:00 AM EST) Patholo gist Method Time Signature Neutrophils % 85.4 % [facility] LABORATORY Neutr Abs (ANC) 16.07 (H) 1.70 - [facility] 6.10 [facility] x10(3)/[facility] L LABORATORY Lymphocytes % 3.5 % [facility] LABORATORY Lymphocytes Abs 0.6 (L) 0.9 - 3.2 [facility] x10(3)/[facility] LABORATORY Monocytes % 10.4 % [facility] LABORATORY Monocyte Abs 2.0 (H) 0.3 - 0.9 [facility] x10(3)/[facility] LABORATORY Eosinophils % 0.0 % [facility] LABORATORY Eosinophils Abs 0.0 0.0 - 0.4 [facility] x10(3)/[facility] LABORATORY Basophils % 0.1 % [facility] LABORATORY Basophils Abs 0.0 0.0 - 0.1 [facility] x10(3)/[facility] LABORATORY Immature Gran % 0.60 % [facility] [...] Gran Abs 0.12 (H) 0.00 - 0.04 x10(3)/[facility] LABORATORY Specimen Anatomical Collection Method Collection Time Receive d Time (Source) Location / / Volume Laterality Blood specimen 07/08/2017 4:00 AM 017 4:09 (specimen) EST AM EST Resulting Agency Comment Spec In Lab Yuan Webber MD HEMATOLOGY ORDERABLES Performing Organization Address City/State/[place] [address] (ABNORMAL) Hemogram (07/08/2017 4:00 AM EST) Analysis Performed At Patho logist Time Signature WBC 18.8 (H) 4.0 - 9.5 [facility] x10(3)/[facility] LABORATORY RBC 4.00 (L) 4.58 - [facility] 5.54 [facility] x10(6)/[facility] LABORATORY Hemoglobin 11.9 (L) 13.7 - [facility] 16.5 gm/dL [facility] LABORATORY Hematocrit 35.9 (L) 40.5 - [facility] 48.5 % [facility] LABORATORY MCV 89.8 82.9 - [facility] 93.1 [facility] LABORATORY MCH 29.8 27.5 - [facility] DAVIS 32.1 pg [facility] LABORATORY MCHC 33.1 32.0 - [place]HA[facility] 35.7 gm/dL [facility] LABORATORY Platelets 232 145 - 357 [facility] x10(3)/[facility] LABORATORY RDWSD 47.6 (H) 36.0 - [place] 45.0 [facility] LABORATORY RDWCV 14.5 (H) 11.4 - [facility] 13.8 % [facility] LABORATORY MPV 9.5 7.6 - 12.9 [facility] LABORATORY nRBC % Auto 0.0 % [facility] LABORATORY nRBC Abs Auto 0.000 0.000 - [facility] 0.000 [facility] x10(3)/[facility] LABORATORY Specimen Anatomical Collection Method Collection Time Receive d Time (Source) Location / / Volume Laterality Blood specimen 07/08/2017 4:00 AM 017 4:09 (specimen) EST AM EST Resulting Agency Comment Spec In Lab Yuan Webber MD HEMATOLOGY ORDERABLES Performing Organization Address City/State/ZIP Code Phon e Number [place] [id number] [address] Drive (ABNORMAL) Electrolytes panel (07/08/2017 4:00 AM EST) P athologist Signature Sodium 139 135 - 145 [facility] mmol/L [facility] LABORATORY Potassium 4.7 3.5 - 5.0 [facility] mmol/L [facility] Comment: result [id number] Please note: [...] 21 (L) 22 - 31 mmol/L [facility] Anion Gap 14 5 - 15 mmol/L [facility] Specimen Anatomical Collection Method Collection Time Receive d Time (Source) Location / / Volume Laterality Blood specimen 07/08/2017 4:00 AM 017 4:10 (specimen) EST AM EST Resulting Agency Comment Spec In Lab Yuan Webber MD CHEMISTRY ORDERABLES Performing Organization Address City/State/[place] [address] (ABNORMAL) Cardiac Enzymes (LEB/CGP) (07/08/2017 4:00 AM EST) P athologist Signature Troponin-T 1.88 (H) 0.00 - [facility] 0.00 ng/mL [facility] Comment: The 99th percentile for [...] additional sample may be indicated. Reference: Third [place] Definition of Myocardial Infarction. Journal of the [place] [employer] 2012;60:1581-98 CK, Total 413 [...] [facility]/ZIP Code Phon e Number [address] (ABNORMAL) Glucose, fasting (07/08/2017 4:00 AM EST) P athologist Signature Glucose 287 (H) 65 - 99 [facility] Fasting mg/dL [facility] LABOR[facility]ORY Comment: ?Fasting* Glucose Interpretive C [...] of Diabetes Mellitus, Position Statement from the [place] [employer]. ??Diabete s Care, Volume 33, Supplement 1, Jul 2009 Specimen Anatomical Collection Method Collection Time Receive d Time (Source) Location / / Volume Laterality Blood specimen 07/08/2017 4:00 AM 017 4:09 (specimen) EST AM EST Resulting Agency Comment Spec In Lab Yuan Webber MD CHEMISTRY ORDERABLES Performing Organization Address City/[facility]/[place] [address] (ABNORMAL) Creatinine (07/08/2017 4:00 AM EST) Analysis Performed At Patho logist Time Signature Creatinine 1.55 (H) 0.80 - [facility] 1.50 mg/dL [facility] LABORATORY Estimated GFR 44 (L) >=60 [facility] LAB[facility]ORY Comment: The reported eGFR should be multiplied b y 1.2 for patients. The MDRD is not an appropriate measure o f renal function for patients with body mass extremes or in patients with acute kidney failure. http://[employer].Amirite.com/nkdep http://[employer]/DHMCnkf Specimen Anatomical Collection Method Collection Time Receive d Time (Source) Location / / Volume Laterality Blood specimen 07/08/2017 4:00 AM 017 4:09 (specimen) EST AM EST Resulting Agency Comment Spec In Lab Yuan Webber MD CHEMISTRY ORDERABLES Performing Organization Address City/[facility]/[place] [address] BUN (07/08/2017 4:00 AM EST) athologist Signature BUN 16 10 - [address] [facility] mg/dL [facility] LABORATORY Specimen Anatomical Collection Method Collection Time Receive d Time (Source) Location / / Volume Laterality Blood specimen 07/08/2017 4:00 AM 017 4:09 (specimen) EST AM EST Resulting Agency Comment Spec In Lab Yuan Webber MD CHEMISTRY ORDERABLES Performing Organization Address City/[facility]/[place] [address] (ABNORMAL) POCT Glucose (07/08/2017 3:00 AM EST) athologist Signature POC Glucose 273 (H) 65 - [address] [facility] mg/dL [facility] Comment: Supplemental ranges: <140 mg/dL [...] [facility]/ZIP Code Phon e Number [address] (ABNORMAL) POCT Glucose (07/08/2017 1:57 AM EST) P athologist Signature POC Glucose 288 (H) 65 - [address] [facility] mg/dL [facility] Comment: Supplemental ranges: <140 mg/dL before meals <180 mg/dL all other times of the day Specimen Anatomical Collection Method Collection Time Receive d Time (Source) Location / / Volume Laterality Blood specimen 07/08/2017 1:57 AM 017 1:57 (specimen) EST AM EST Daphne Shahid MD POINT OF CARE TEST ORDERABLE S Performing Organization Address City/State/[place] [address] (ABNORMAL) POCT Glucose (07/08/2017 1:01 AM EST) P athologist Signature POC Glucose 315 (H) 65 - 199 [facility] mg/dL [facility] Comment: Supplemental ranges: <140 mg/dL [...] [facility]/[place] [address] (ABNORMAL) BLOOD GAS 2 ARTERIAL (07/08/2017 12:09 AM EST) P athologist Signature pH Art 7.26 7.35 - [facility] (Critical) 7.45 [facility] Comment: Noted by instrumentation specialist. pCO2 Art 41 35 - 45 [...] [facility]ICAL [facility]ENTER LAB[facility]ORY Comment: Noted by instrumentation specialist. FIO2 Art 40 % [facility] [...] Organization Address City/State/[place] [address] (ABNORMAL) POCT Glucose (07/07/2017 10:56 PM EST) P athologist Signature POC Glucose 292 (H) 65 - 199 [facility] mg/dL [facility] Comment: Supplemental ranges: <140 mg/dL before meals <180 mg/dL all other times of the day Specimen Anatomical Collection Method Collection Time Receive d Time (Source) Location / / Volume Laterality Blood specimen 07/07/2017 10:56 7 (specimen) PM EST 10:56 PM EST Daphne Shahid MD POINT OF CARE TEST ORDERABLE S Performing Organization Address City/State/[place] [address] (ABNORMAL) BLOOD GAS 2 ARTERIAL (07/07/2017 10:04 PM EST) athologist Signature pH Art 7.22 7.35 - [facility] (Critical) 7.45 [facility] Comment: Noted by instrumentation specialist. pCO2 Art 42 35 - 45 [...] [facility]ENTER LAB[facility]ORY Comment: Noted by instrumentation specialist. FIO2 Art 40 % [facility] LABORATORY PF Ratio Art 235 [facility] LABOR[facility]ORY Specimen Anatomical Collection Method Collection Time Receive d Time (Source) Location / / Volume Laterality Blood specimen 07/07/2017 10:04 7 (specimen) PM EST 10:04 PM EST Daphne Shahid MD CHEMISTRY ORDERABLES Performing Organization Address City/[facility]/ZIP Code Phon e Number [address] (ABNORMAL) Hemoglobin (07/07/2017 10:00 PM EST) P athologist Signature Hemoglobin 12.8 (L) 13.7 - [facility] 16.5 gm/dL [facility]OR[facility]ORY Specimen Anatomical Collection Method Collection Time Receive d Time (Source) Location / / Volume Laterality Blood specimen 07/07/2017 10:00 7 (specimen) PM EST 10:13 PM EST Resulting Agency Comment Spec In Lab Yuan Webber MD HEMATOLOGY ORDERABLES Performing Organization Address City/[facility]/[place] [address] (ABNORMAL) Potassium (07/07/2017 10:00 PM EST) P athologist Signature Potassium 3.4 (L) 3.5 - 5.0 [facility] mmol/L [facility] Comment: Please note: ??Patients with [...] Address City/State/[place] [address] (ABNORMAL) POCT Glucose (07/07/2017 8:49 PM EST) P athologist Signature POC Glucose 241 (H) 65 - 199 [facility] mg/dL [facility] Comment: Supplemental ranges: <140 mg/dL [...] [facility]/[place] [address] Prepare Albumin 5% in [...] Address City/State/[place] [address] EKG 12 Lead (07/07/2017 7:17 PM EST) Component Value Ref Range Test Analysis Performed Pathologis t Method Time At Signature Ventricular rate 75 BPM MUSE SYSTEM Atrial Rate 75 BPM MUSE SYSTEM P-R Interval 168 ms MUSE SYSTEM QRS Duration 104 ms MUSE SYSTEM Q-T Interval 462 ms MUSE SYSTEM QTC Calculated 515 ms MUSE SYSTEM (Bezet) Calculated P Lena 52 degrees MUSE SYSTEM Calculated R Lena -40 degrees MUSE SYSTEM Calculated T Lena 39 degrees MUSE SYSTEM INTERPRETATION Normal sinus [...] th e aortic counterpulsation balloon. Procedure Note Barden Borges MD - 07/07/2017Forma tting of this [...] athologist Signature pH Art 7.21 7.35 - [facility] (Critical) 7.45 [facility] Comment: Noted by instrumentation specialist. pCO2 Art 50 (H) 35 - [...] [facility]ICAL [facility]ENTER LAB[facility]ORY Comment: Noted by instrumentation specialist. Please note: Patients with WBC >100,000 [...] [facility] LAB[facility]ORY Comment: Noted by instrumentation specialist. FIO2 Art 100 % [facility] LABORATORY PF Ratio Art 238 [facility] LAB[facility] Specimen Anatomical Collection Method Collection Time Receive d Time (Source) Location / / Volume Laterality Blood specimen 07/07/2017 6:57 PM 017 6:57 (specimen) EST PM EST Daphne Shahid MD CHEMISTRY ORDERABLES Performing Organization Address City/State/[place] [address] (ABNORMAL) BLOOD GAS 2 ARTERIAL (07/07/2017 5:31 PM EST) athologist Signature pH Art 7.29 7.35 - [facility] (Critical) 7.45 [facility] Comment: Noted by instrumentation specialist. pCO2 Art 48 (H) 35 - [...] [facility]/ZIP Code Phon e Number [address] Fibrinogen (07/07/2017 5:30 PM EST) P athologist Signature Fibrinogen 224 180 - 510 [facility] mg/dL [facility] Comment: Called by: JEET, Read [...] [facility]/ZIP [facility] Phon e Number [address] APTT (07/07/2017 5:30 PM EST) P athologist Signature PTT 30 25 - 35 sec [facility] Comment: The recommended therapeutic range for fu ll dose, unfractionated heparin at [facility] is 80 ? 114 seconds. The use [...] [facility]/ZIP Code Phon e Number [address] (ABNORMAL) Prothrombin Time (07/07/2017 [...] City/[facility] [place] [address] (ABNORMAL) Hemogram (07/07/2017 5:30 PM EST) P athologist Signature WBC 19.6 (H) 4.0 - 9.5 [facility] x10(3)/[facility] LABORATORY RBC 3.08 (L) 4.58 - [facility] 5.54 [facility] x10(6)/[facility] LABORATORY Hemoglobin 9.2 (L) 13.7 - [facility] 16.5 gm/dL [facility] LABORATORY Hematocrit 28.0 (L) 40.5 - [facility] 48.5 % [facility] Comment: This result has been called to MONICA MORAN by DONALD GROSSMAN on 07 07 2017 at 1759, and has been read back. MCV 90.9 82.9 - 93.1 [facility] LABORATORY MCH 29.9 27.5 - 32.1 pg [facility] MCHC 32.9 32.0 - 35.7 gm/dL [facility] Platelets 155 145 - 357 x10(3)/[facility] LABORATORY RDWSD 46.5 (H) 36.0 - 45.0 [facility] LABORATORY RDWCV 14.1 (H) 11.4 - 13.8 % [facility] LABORATORY MPV 9.5 7.6 - 12.9 [facility] LABORATORY nRBC % Auto 0.0 % [facility] nRBC Abs Auto 0.000 0.000 - 0.000 x10(3)/[facility] LABORATORY Specimen Anatomical Collection Method Collection Time Receive d Time (Source) Location / / Volume Laterality Blood specimen 07/07/2017 5:30 PM 017 5:34 (specimen) EST PM EST Resulting Agency Comment Spec In Lab Yifan Perez MD HEMATOLOGY ORDERABLES Performing Organization Address City/State/[place] [address] Prepare Platelets, Apheresis (07/07/2017 5:00 PM EST) P athologist Signature Dispensed? Yes [facility] Specimen Anatomical Collection Method Collection Time Receive d Time (Source) Location / / Volume Laterality Blood specimen 07/07/2017 5:00 PM 017 4:58 (specimen) EST PM EST Daphne Shahid MD BLOOD BANK ORDERABLES Performing Organization Address City/State/[place] [address] Platelet count (07/07/2017 4:55 PM EST) athologist Signature Platelets 177 145 - 357 KATALINA DAVIS x10(3)/[facility] LABORATORY Plat Immature 1.5 0.0 - 7.4 [place]INA DAVIS % % [facility] Comment: Limitation of the Immature Platelet Frac tion (IPF)-May be less reliable when the platelet count is less than 88o522/u L due to statistical imprecision. The IPF [...] in a decreased state of production. References: [employer] The Clinical Value of the Immature Platelet Fraction (IPF) in Cell Recovery Document Number 10-1143 12/2010 [employer] The Role of the Imm ature [...] Organization Address City/State/[place] [address] [facility] LABORATORY Drive (ABNORMAL) Hemoglobin and Hematocrit, blood (07/07/2017 4:55 PM EST) athologist Signature Hemoglobin 9.1 (L) 13.7 - 16.5 KATALINA DAVIS gm/dL [facility] Comment: This result has been [...] Organization Address City/State/[place] [address] (ABNORMAL) BLOOD GAS 2 ARTERIAL (07/07/2017 4:38 PM EST) Analysis Performed At Patho logist Time Signature pH Art 7.37 7.35 - [facility] 7.45 [facility] pCO2 Art 44 35 - 45 [facility] mmHg [facility] pO2 Art 322 (H) 85 - 104 [facility] LABORATORY HCO3 Art 24.9 20.0 - [facility] 26.0 [facility] mmol/[facility] BE Art -0.4 -3.0 - 3.0 [facility] mmol/L [facility] Hgb Blood Gas 10.1 (L) 13.7 - [facility] 16.5 gm/dL [facility] O2HB Art 98.7 (H) 94.0 - [facility] 97.0 % [facility] COHB Art 0.1 % [facility] Comment: Noted by instrumentation specialist. Note: ??Total bilirubin higher than 20 [...] Organization Address City/State/[place] [address] (ABNORMAL) BLOOD GAS 2 VENOUS (07/07/2017 4:06 PM EST) Analysis Performed At Patho logist Time Signature pH Cody 7.31 (L) 7.32 - [facility] 7.42 [facility] pCO2 Cody 47 41 - 51 [facility] LABORATORY pO2 Cody 53 (H) 25 - 40 [facility] LABORATORY HCO3 Cody 22.7 mmol/L [facility] BE Cody -3.7 mmol/L [facility] Hgb Blood Gas 10.2 (L) 13.7 - [facility] 16.5 gm/dL [facility] O2HB Cody 81.0 % [facility] Comment: Noted by instrumentation specialist. Note: ??Total bilirubin higher than 20 m g/dL may lead to falsely low ionized calcium. CL Whole Blood 100 98 - 107 mmol/L [facility] Gluc Whole Bld 231 (H) 65 - 199 mg/dL [facility] Comment: Diabetes: >=200 mg/dL plus symp toms Lactate WB 1.1 0.5 - 2.2 mmol/L [facility] BGas Source Venous [facility] Specimen Anatomical Collection Method Collection Time Receive d Time (Source) Location / / Volume Laterality Blood specimen 07/07/2017 4:06 PM 017 4:06 (specimen) EST PM EST Daphne Shahid MD CHEMISTRY ORDERABLES Performing Organization Address City/State/[place] [address] (ABNORMAL) BLOOD GAS 2 ARTERIAL (07/07/2017 4:05 PM EST) Analysis Performed At Patho logist Time Signature pH Art 7.36 7.35 - [facility] 7.45 [facility] pCO2 Art 40 35 - 45 [facility] mmHg [facility] pO2 Art 282 (H) 85 - 104 [facility] LABORATORY HCO3 Art 22.1 20.0 - [facility] 26.0 [facility] mmol/L [facility] LAB[facility] BE Art -3.4 (L) -3.0 - 3.0 [facility] mmol/L [facility] Hgb Blood Gas 10.2 (L) 13.7 - [facility] 16.5 gm/dL [facility] O2HB Art 98.4 (H) 94.0 - [facility] 97.0 % [facility] COHB Art 0.3 % [facility] Comment: Noted by instrumentation specialist. Note: ??Total bilirubin higher than 20 [...] Organization Address City/State/[place] [address] (ABNORMAL) BLOOD GAS 2 ARTERIAL (07/07/2017 2:29 PM EST) Analysis Performed At Patho logist Time Signature pH Art 7.43 7.35 - [facility] 7.45 [facility] pCO2 Art 36 35 - 45 [facility] LABORATORY pO2 Art 221 (H) 85 - 104 [facility] LABORATORY HCO3 Art 23.2 20.0 - [facility] 26.0 [facility] mmol/L [facility] BE Art -1.2 -3.0 - 3.0 [facility] mmol/L [facility] Hgb Blood Gas 13.9 13.7 - [facility] 16.5 gm/dL [facility] O2HB Art 97.8 (H) 94.0 - [facility] 97.0 % [facility] COHB Art 1.1 % [facility] [...] Organization Address City/State/[place] [address] Prepare Coag Factors (Non-Hemophilia) (07/07/2017 1:25 PM EST) P athologist Signature Dispensed? Yes [facility] Specimen Anatomical Collection Method Collection Time Receive d Time (Source) Location / / Volume Laterality Blood specimen 07/07/2017 1:25 PM 017 1:21 (specimen) EST PM EST Daphne Shahid MD BLOOD BANK ORDERABLES Performing Organization Address City/State/ZIP Code Phon e Number [address] Prepare RBC (07/07/2017 1:10 [...] [facility]/ZIP Code Phon e Number [address] POCT Glucose (07/07/2017 11:56 AM EST) P athologist Signature POC Glucose 188 65 - [address] [facility] mg/dL [facility] Comment: Supplemental ranges: <140 mg/dL [...] [facility]/[place] [address] POCT Glucose (07/07/2017 11:05 AM EST) P athologist Signature POC Glucose 168 65 - 199 [facility] mg/dL [facility] Comment: Supplemental ranges: <140 mg/dL before meals <180 mg/dL all other times of the day Specimen Anatomical Collection Method Collection Time Receive d Time (Source) Location / / Volume Laterality Blood specimen 07/07/2017 11:05 7 (specimen) AM EST 11:05 AM EST Daphne Shahid MD POINT OF CARE TEST ORDERABLE S Performing Organization Address City/State/[place] [address] POCT Glucose (07/07/2017 10:02 AM EST) athologist Signature POC Glucose 191 65 - 199 KATALINA RYAN mg/dL [facility] Comment: Supplemental ranges: <140 mg/dL before meals <180 mg/dL all other times of the day Specimen Anatomical Collection Method Collection Time Receive d Time (Source) Location / / Volume Laterality Blood specimen 07/07/2017 10:02 7 (specimen) AM EST 10:02 AM EST Daphne Shahid MD POINT OF CARE TEST ORDERABLE S Performing Organization Address City/State/ZIP Code Phon e Number [address] POCT Glucose (07/07/2017 7:53 AM EST) athologist Signature POC Glucose 178 65 - 199 [facility] mg/dL [facility] Comment: Supplemental ranges: <140 mg/dL before meals <180 mg/dL all other times of the day Specimen Anatomical Collection Method Collection Time Receive d Time (Source) Location / / Volume Laterality Blood specimen 07/07/2017 7:53 AM 017 7:53 (specimen) EST AM EST Daphne Shahid MD POINT OF CARE TEST ORDERABLE S Performing Organization Address City/State/[place] [address] POCT Glucose (07/07/2017 7:03 AM EST) athologist Signature POC Glucose 188 65 - 199 KATALINA RYAN mg/dL [facility] Comment: Supplemental ranges: <140 mg/dL before meals <180 mg/dL all other times of the day Specimen Anatomical Collection Method Collection Time Receive d Time (Source) Location / / Volume Laterality Blood specimen 07/07/2017 7:03 AM 017 7:03 (specimen) EST AM EST Daphne Shahid MD POINT OF CARE TEST ORDERABLE S Performing Organization Address City/State/[place] [address] (ABNORMAL) POCT Glucose (07/07/2017 6:17 AM EST) athologist Signature POC Glucose 207 (H) 65 - 199 [facility] mg/dL [facility] Comment: Supplemental ranges: <140 mg/dL before meals <180 mg/dL all other times of the day Specimen Anatomical Collection Method Collection Time Receive d Time (Source) Location / / Volume Laterality Blood specimen 07/07/2017 6:17 AM 017 6:17 (specimen) EST AM EST Daphne Shahid MD POINT OF CARE TEST ORDERABLE S Performing Organization Address City/State/ZIP Code Phon e Number [place] [id number] HOSPITAL LAB[address]ATORY Drive Differential, Automated (07/07/2017 5:15 AM EST) athologist [facility] Neutrophils % 69.7 % [facility] Neutr Abs (ANC) 5.32 1.70 - [facility] 6.10 [facility] x10(3)/[facility] LABORATORY Lymphocytes % 16.3 % [facility] Lymphocytes Abs 1.2 0.9 - 3.2 [facility] x10(3)/[facility] LABORATORY Monocytes % 10.5 % [facility] Monocyte Abs 0.8 0.3 - 0.9 [facility] x10(3)/[facility] LABORATORY Eosinophils % 2.5 % [facility] Eosinophils Abs 0.2 0.0 - 0.4 [facility] x10(3)/[facility] LABORATORY Basophils % 0.7 % [facility] Basophils Abs 0.0 0.0 - 0.1 [facility] x10(3)/[facility] LABORATORY Immature Gran % 0.30 % [facility] [...] Melisa Gran Abs 0.02 0.00 - 0.04 x10(3)/[facility] LABORATORY Specimen Anatomical Collection Method Collection Time Receive d Time (Source) Location / / Volume Laterality Blood specimen 07/07/2017 5:15 AM 017 5:34 (specimen) EST AM EST Resulting Agency Comment Spec In Lab Daphne Shahid MD HEMATOLOGY ORDERABLES Performing Organization Address City/State/[place] [address] (ABNORMAL) Hemogram (07/07/2017 5:15 AM EST) Analysis Performed At Patho logist Time Signature WBC 7.6 4.0 - 9.5 [facility] x10(3)/[facility] LABORATORY RBC 4.82 4.58 - [facility] 5.54 [facility] x10(6)/[facility] LABORATORY Hemoglobin 14.4 13.7 - [facility] gm/dL [facility] Hematocrit 42.1 40.5 - [facility] 48.5 % [facility] MCV 87.3 82.9 - [facility] 93.1 [facility] LABORATORY MCH 29.9 27.5 - [facility] 32.1 pg [facility] MCHC 34.2 32.0 - [facility] 35.[facility] gm/dL [facility] Platelets 188 145 - 357 [facility] x10(3)/[facility] LABORATORY RDWSD 45.1 (H) 36.0 - [facility] 45.0 [facility] LABORATORY RDWCV 14.3 (H) 11.4 - [facility] 13.8 % [facility]ORATORY MPV 9.4 7.6 - 12.9 [facility] LABORATORY nRBC % Auto 0.0 % [facility] nRBC Abs Auto 0.000 0.000 - [facility] 0.000 [facility] x10(3)/[facility] LABORATORY Specimen Anatomical Collection Method Collection Time Receive d Time (Source) Location / / Volume Laterality Blood specimen 07/07/2017 5:15 AM 017 5:34 (specimen) EST AM EST Resulting Agency Comment Spec In Lab Daphne Shahid MD HEMATOLOGY ORDERABLES Performing Organization Address City/State/[place] [address] (ABNORMAL) APTT (07/07/2017 5:15 AM EST) athologist Signature PTT 69 (H) 25 - 35 sec [facility] Comment: The recommended therapeutic range for fu ll dose, unfractionated heparin at [facility] is 80 ? 114 seconds. The use [...] [facility]/[place] [address] Magnesium (07/07/2017 5:15 AM EST) athologist Signature Magnesium 0.94 0.69 - 1.07 [facility] mmol/L [facility] Specimen Anatomical Collection Method Collection Time Receive d Time (Source) Location / / Volume Laterality Blood specimen 07/07/2017 5:15 AM 017 5:34 (specimen) EST AM EST Resulting Agency Comment Spec In Lab Daphne Shahid MD CHEMISTRY ORDERABLES Performing Organization Address City/[facility]/[place] [address] (ABNORMAL) Basic Metabolic Panel (non-fasting) (07/07/2017 5:15 AM EST) athologist Signature Glucose Lvl 203 (H) 65 - 199 [facility] mg/dL [facility] Comment: [...] [facility] Estimated GFR >60 >=60 [facility] Comment: The reported eGFR should be multiplied b y 1.2 for patients. The MDRD is not an appropriate measure o f renal function for patients with body mass extremes or in patients with acute kidney failure. http://[employer]/DHnkdep http://[employer]/DHMCnkf Specimen Anatomical Collection Method Collection Time Receive d Time (Source) Location / / Volume Laterality Blood specimen 07/07/2017 5:15 AM 017 5:34 (specimen) EST AM EST Resulting Agency Comment Spec In Lab Daphne Shahid MD CHEMISTRY ORDERABLES Performing Organization Address City/State/[place] [address] (ABNORMAL) Cardiac Enzymes (LEB/CGP) (07/07/2017 5:15 AM EST) P athologist Signature Troponin-T 2.07 (H) 0.00 - [facility] 0.00 ng/mL [facility] Comment: The 99th percentile for [...] additional sample may be indicated. Reference: Third [place] Definition of Myocardial Infarction. Journal of the [place] [employer] 2012;60:1581-98 CK, Total 88 [...] [facility]/ZIP Code Phon e Number [address] POCT Glucose (07/07/2017 5:01 AM EST) athologist Signature POC Glucose 182 65 - 199 [facility] mg/dL [facility] Comment: Supplemental ranges: <140 mg/dL before meals <180 mg/dL all other times of the day Specimen Anatomical Collection Method Collection Time Receive d Time (Source) Location / / Volume Laterality Blood specimen 07/07/2017 5:01 AM 017 5:01 (specimen) EST AM EST Daphne Shahid MD POINT OF CARE TEST ORDERABLE S Performing Organization Address City/[facility]/ZIP [facility] [place] [address] POCT Glucose (07/07/2017 4:08 AM EST) athologist Signature POC Glucose 199 65 - 199 [facility] mg/dL [facility] Comment: Supplemental ranges: <140 mg/dL before meals <180 mg/dL all other times of the day Specimen Anatomical Collection Method Collection Time Receive d Time (Source) Location / / Volume Laterality Blood specimen 07/07/2017 4:08 AM 017 4:08 (specimen) EST AM EST Daphne Shahid MD POINT OF CARE TEST ORDERABLE S Performing Organization Address City/State/[place] [address] POCT Glucose (07/07/2017 3:03 AM EST) athologist Signature POC Glucose 188 65 - 199 KATALINA RYAN mg/dL [facility] Comment: Supplemental ranges: <140 mg/dL before meals <180 mg/dL all other times of the day Specimen Anatomical Collection Method Collection Time Receive d Time (Source) Location / / Volume Laterality Blood specimen 07/07/2017 3:03 AM 017 3:03 (specimen) EST AM EST Daphne Shahid MD POINT OF CARE TEST ORDERABLE S Performing Organization Address City/State/[place] [address] (ABNORMAL) POCT Glucose (07/07/2017 2:08 AM EST) athologist Signature POC Glucose 200 (H) 65 - [address] [facility] mg/dL [facility] Comment: Supplemental ranges: <140 mg/dL before meals <180 mg/dL all other times of the day Specimen Anatomical Collection Method Collection Time Receive d Time (Source) Location / / Volume Laterality Blood specimen 07/07/2017 2:08 AM 017 2:08 (specimen) EST AM EST Daphne Shahid MD POINT OF CARE TEST ORDERABLE S Performing Organization Address City/State/ZIP Code Phon e Number [address] (ABNORMAL) POCT Glucose (07/07/2017 1:31 AM EST) athologist Signature POC Glucose 209 (H) 65 - [address] [facility] mg/dL [facility] Comment: Supplemental ranges: <140 mg/dL before meals <180 mg/dL all other times of the day Specimen Anatomical Collection Method Collection Time Receive d Time (Source) Location / / Volume Laterality Blood specimen 07/07/2017 1:31 AM 017 1:31 (specimen) EST AM EST Daphne Shahid MD POINT OF CARE TEST ORDERABLE S Performing Organization Address City/State/ZIP Code Phon e Number [place] [id number] HOSPITAL LABORATORY Drive XR Chest PA or [...] Signature POC Glucose 161 65 - 199 [facility] mg/dL [facility] Comment: Supplemental ranges: <140 mg/dL before meals <180 mg/dL all other times of the day Specimen Anatomical Collection Method Collection Time Receive d Time (Source) Location / / Volume Laterality Blood specimen 07/07/2017 12:07 7 (specimen) AM EST 12:07 AM EST Daphne Shahid MD POINT OF CARE TEST ORDERABLE S Performing Organization Address City/State/[place] [address] (ABNORMAL) APTT (07/07/2017 12:00 AM EST) athologist Signature PTT 103 (H) 25 - 35 sec [facility] Comment: The recommended therapeutic range for fu ll dose, unfractionated heparin at [facility] is 80 ? 114 seconds. The use [...] [facility]/[place] [address] POCT Glucose (07/06/2017 9:55 PM EST) athologist Signature POC Glucose 109 65 - [address] [facility] mg/dL [facility] Comment: Supplemental ranges: <140 mg/dL [...] [facility]/[place] [address] POCT Glucose (07/06/2017 9:04 PM EST) athologist Signature POC Glucose 120 65 - [address] [facility] mg/dL [facility] Comment: Supplemental ranges: <140 mg/dL [...] [facility]/Z[place] [address] POCT Glucose (07/06/2017 7:45 PM EST) athologist Signature POC Glucose 158 65 - 199 [facility] mg/dL [facility] Comment: Supplemental ranges: <140 mg/dL [...] [facility]/Z[place] [address] Potassium (07/06/2017 7:40 PM EST) athologist Signature Potassium 3.9 3.5 - 5.0 [facility] mmol/L [facility] Comment: Please note: ??Patients with [...] [facility]/[place] [address] (ABNORMAL) Cardiac Enzymes (LEB/CGP) (07/06/2017 7:40 PM EST) athologist Signature Troponin-T 2.27 (H) 0.00 - [facility] 0.00 ng/mL [facility] Comment: The 99th percentile for [...] additional sample may be indicated. Reference: Third [place] Definition of Myocardial Infarction. Journal of the [place] [employer] 2012;60:1581-98 CK, Total 93 0 - 200 unit/L [facility] Specimen Anatomical Collection Method Collection Time Receive d Time (Source) Location / / Volume Laterality Blood specimen 07/06/2017 7:40 PM 017 7:52 (specimen) EST PM EST Resulting Agency Comment Spec In Lab Daphne Shahid MD CHEMISTRY ORDERABLES Performing Organization Address City/State/[place] [address] (ABNORMAL) POCT Glucose (07/06/2017 7:13 PM EST) athologist Signature POC Glucose 200 (H) 65 - 199 [facility] mg/dL [facility] Comment: Supplemental ranges: <140 mg/dL [...] [facility]/[place] [address] (ABNORMAL) APTT (07/06/2017 6:15 PM EST) athologist Signature PTT 94 (H) 25 - 35 sec [facility] Comment: The recommended therapeutic range for fu ll dose, unfractionated heparin at [facility] is 80 ? 114 seconds. The use [...] Address City/State/[place] [address] (ABNORMAL) POCT Glucose (07/06/2017 6:03 PM EST) athologist Signature POC Glucose 236 (H) 65 - [address] [facility] mg/dL [facility] Comment: Supplemental ranges: <140 mg/dL [...] [facility]/[place] [address] (ABNORMAL) POCT Glucose (07/06/2017 5:01 PM EST) athologist Signature POC Glucose 235 (H) 65 - [address] [facility] mg/dL [facility] Comment: Supplemental ranges: <140 mg/dL before meals <180 mg/dL all other times of the day Specimen Anatomical Collection Method Collection Time Receive d Time (Source) Location / / Volume Laterality Blood specimen 07/06/2017 5:01 PM 017 5:01 (specimen) EST PM EST Daphne Shahid MD POINT OF CARE TEST ORDERABLE S Performing Organization Address City/State/ZIP [place] [address] (ABNORMAL) POCT Glucose (07/06/2017 4:06 PM EST) P athologist Signature POC Glucose 202 (H) 65 - 199 [place] mg/dL [facility] Comment: Supplemental ranges: <140 mg/dL before meals <180 mg/dL all other times of the day Specimen Anatomical Collection Method Collection Time Receive d Time (Source) Location / / Volume Laterality Blood specimen 07/06/2017 4:06 PM 017 4:06 (specimen) EST PM EST Daphne Shahid MD POINT OF CARE TEST ORDERABLE S Performing Organization Address City/State/[place] [address] POCT Glucose (07/06/2017 2:59 PM EST) athologist Signature POC Glucose 178 65 - 199 [place] mg/dL [facility] Comment: Supplemental ranges: <140 mg/dL before meals <180 mg/dL all other times of the day Specimen Anatomical Collection Method Collection Time Receive d Time (Source) Location / / Volume Laterality Blood specimen 07/06/2017 2:59 PM 017 2:59 (specimen) EST PM EST Daphne Shahid MD POINT OF CARE TEST ORDERABLE S Performing Organization Address City/State/[place] [address] (ABNORMAL) Cardiac Enzymes (LEB/CGP) (07/06/2017 2:10 PM EST) P athologist Signature Troponin-T 2.34 (H) 0.00 - [facility] 0.00 ng/mL [facility] Comment: The 99th percentile for [...] additional sample may be indicated. Reference: Third [place] Definition of Myocardial Infarction. Journal of the [place] [employer] 2012;60:1581-98 CK, Total 101 0 - 200 unit/L [facility] Specimen Anatomical Collection Method Collection Time Receive d Time (Source) Location / / Volume Laterality Blood specimen 07/06/2017 2:10 PM 017 2:26 (specimen) EST PM EST Resulting Agency Comment Spec In Lab Daphne Shahid MD CHEMISTRY ORDERABLES Performing Organization Address City/State/[place] [address] POCT Glucose (07/06/2017 2:08 PM EST) P athologist Signature POC Glucose 192 65 - 199 [facility] mg/dL [facility] Comment: Supplemental ranges: <140 mg/dL before meals <180 mg/dL all other times of the day Specimen Anatomical Collection Method Collection Time Receive d Time (Source) Location / / Volume Laterality Blood specimen 07/06/2017 2:08 PM 017 2:08 (specimen) EST PM EST Daphne Shahid MD POINT OF CARE TEST ORDERABLE S Performing Organization Address City/State/ZIP Code Phon e Number [address] POCT Glucose (07/06/2017 1:04 PM EST) P athologist Signature POC Glucose 162 65 - 199 [facility] mg/dL [facility] Comment: Supplemental ranges: <140 mg/dL [...] [facility]/ZIP Code Phon e Number [address] POCT Glucose (07/06/2017 12:05 PM EST) P athologist Signature POC Glucose 196 65 - 199 [facility] mg/dL [facility] Comment: Supplemental ranges: <140 mg/dL before meals <180 mg/dL all other times of the day Specimen Anatomical Collection Method Collection Time Receive d Time (Source) Location / / Volume Laterality Blood specimen 07/06/2017 12:05 7 (specimen) PM EST 12:05 PM EST Daphne Shahid MD POINT OF CARE TEST ORDERABLE S Performing Organization Address City/State/[place] [address] EKG 12 Lead (07/06/2017 12:00 PM EST) Component Value Ref Range Test Analysis Performed Pathologis t Method Time At Signature Ventricular rate 91 BPM MUSE SYSTEM Atrial Rate 91 BPM MUSE SYSTEM P-R Interval 140 ms MUSE SYSTEM QRS Duration 94 ms MUSE SYSTEM Q-T Interval 394 ms MUSE SYSTEM QTC Calculated 484 ms MUSE SYSTEM (Bezet) Calculated P Lena 36 degrees MUSE SYSTEM Calculated R Lena -19 degrees MUSE SYSTEM Calculated T Lena 104 degrees MUSE SYSTEM INTERPRETATION Normal sinus rhythm MUSE SYSTEM 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) ST & T wave abnormality, consider lateral ischemia Abnormal ECG When compared with ECG of 05-JUL-2017 20:39, No significant change was found Confirmed by MD Luci, Taurus Braun ([id number]) on 07/06/2017 5:07:33 PM Specimen Anatomical Collection Method Collection Time Receive d Time (Source) Location / / Volume Laterality 07/06/2017 12:00 07/06/2017 5:07 PM EST PM EST Daphne Shahid MD ECG ORDERABLES Performing Organization Address City/[facility]/ZIP Code Phon e Number MUSE SYSTEM ABORH Recheck Status (07/06/2017 12:00 PM EST) [facility] Method Time Signature ABORH [...] [facility]/[place] [address] Antibody screen (07/06/2017 12:00 PM EST) [facility] Method Time Signature Ab Screen Negative [facility] LABORATORY Expires at 07/09/2017 [facility] 235 on: [facility] Specimen Anatomical Collection Method Collection Time Receive d Time (Source) Location / / Volume Laterality Blood specimen 07/06/2017 12:00 7 (specimen) PM EST 12:24 PM EST Resulting Agency Comment Spec In Lab Daphne Shahid MD BLOOD BANK ORDERABLES Performing Organization Address City/[facility]/[place] [address] ABO/Rh Typing (07/06/2017 12:00 [...] Address City/State/[place] [address] Prothrombin Time (07/06/2017 11:24 [...] [facility]/[place] [address] (ABNORMAL) APTT (07/06/2017 11:24 AM EST) athologist Signature PTT 52 (H) 25 - 35 sec [facility] Comment: The recommended therapeutic range for fu ll dose, unfractionated heparin at [facility] is 80 ? 114 seconds. The use [...] Address City/State/ZIP Code Phon e Number [address] POCT Glucose (07/06/2017 11:02 AM EST) athologist Signature POC Glucose 187 65 - 199 [place] mg/dL [facility] Comment: Supplemental ranges: <140 mg/dL before meals <180 mg/dL all other times of the day Specimen Anatomical Collection Method Collection Time Receive d Time (Source) Location / / Volume Laterality Blood specimen 07/06/2017 11:02 7 (specimen) AM EST 11:02 AM EST Daphne Shahid MD POINT OF CARE TEST ORDERABLE S Performing Organization Address City/State/[place] [address] POCT Glucose (07/06/2017 10:18 AM EST) athologist Signature POC Glucose 193 65 - 199 [place] mg/dL [facility] Comment: Supplemental ranges: <140 mg/dL before meals <180 mg/dL all other times of the day Specimen Anatomical Collection Method Collection Time Receive d Time (Source) Location / / Volume Laterality Blood specimen 07/06/2017 10:18 7 (specimen) AM EST 10:18 AM EST Daphne Shahid MD POINT OF CARE TEST ORDERABLE S Performing Organization Address City/State/[place] [address] POCT Glucose (07/06/2017 9:25 AM EST) athologist Signature POC Glucose 182 65 - 199 [place] mg/dL [facility] Comment: Supplemental ranges: <140 mg/dL before meals <180 mg/dL all other times of the day Specimen Anatomical Collection Method Collection Time Receive d Time (Source) Location / / Volume Laterality Blood specimen 07/06/2017 9:25 AM 017 9:25 (specimen) EST AM EST Daphne Shahid MD POINT OF CARE TEST ORDERABLE S Performing Organization Address City/State/[place] [address] (ABNORMAL) Cardiac Enzymes (LEB/CGP) (07/06/2017 8:10 AM EST) athologist Signature Troponin-T 2.26 (H) 0.00 [facility]/mL [facility] Comment: The 99th percentile for [...] additional sample may be indicated. Reference: Third [place] Definition of Myocardial Infarction. Journal of the [place] [employer]iology 2012;60:1581-98 CK, Total 124 0 - 200 unit/L [facility] Specimen Anatomical Collection Method Collection Time Receive d Time (Source) Location / / Volume Laterality Blood specimen 07/06/2017 8:10 AM 017 8:23 (specimen) EST AM EST Resulting Agency Comment Spec In Lab Daphne Shahid MD CHEMISTRY ORDERABLES Performing Organization Address City/State/[place] [address] Magnesium (07/06/2017 8:10 AM EST) athologist Signature Magnesium 0.84 0.69 - 1.07 [facility] mmol/L [facility] Specimen Anatomical Collection Method Collection Time Receive d Time (Source) Location / / Volume Laterality Blood specimen 07/06/2017 8:10 AM 017 8:21 (specimen) EST AM EST Resulting Agency Comment Spec In Lab Daphne Shahid MD CHEMISTRY ORDERABLES Performing Organization Address City/[facility]/[place] [address] (ABNORMAL) Basic Metabolic Panel (non-fasting) (07/06/2017 8:10 AM EST) P athologist Signature Glucose Lvl 199 65 - 199 [facility] mg/dL [facility] Comment: [...] [facility] Estimated GFR >60 >=60 [facility] Comment: The reported eGFR should be multiplied b y 1.2 for patients. The MDRD is not an appropriate measure o f renal function for patients with body mass extremes or in patients with acute kidney failure. http://[employer].Amirite.com/DHnkdep http://[employer].Amirite.com/DHMCnkf Specimen Anatomical Collection Method Collection Time Receive d Time (Source) Location / / Volume Laterality Blood specimen 07/06/2017 8:10 AM 017 8:21 (specimen) EST AM EST Resulting Agency Comment Spec In Lab Daphne Shahid MD CHEMISTRY ORDERABLES Performing Organization Address City/State/[place] [address] POCT Glucose (07/06/2017 7:34 AM EST) P athologist Signature POC Glucose 198 65 - 199 [facility] mg/dL [facility] Comment: Supplemental ranges: <140 mg/dL before meals <180 mg/dL all other times of the day Specimen Anatomical Collection Method Collection Time Receive d Time (Source) Location / / Volume Laterality Blood specimen 07/06/2017 7:34 AM 017 7:34 (specimen) EST AM EST Daphne Shahid MD POINT OF CARE TEST ORDERABLE S Performing Organization Address City/State/ZIP Code Phon e Number [address] POCT Glucose (07/06/2017 7:03 AM EST) athologist Signature POC Glucose 181 65 - 199 [facility] mg/dL [facility] Comment: Supplemental ranges: <140 mg/dL before meals <180 mg/dL all other times of the day Specimen Anatomical Collection Method Collection Time Receive d Time (Source) Location / / Volume Laterality Blood specimen 07/06/2017 7:03 AM 017 7:03 (specimen) EST AM EST Daphne Shahid MD POINT OF CARE TEST ORDERABLE S Performing Organization Address City/State/[place] [address] XR Chest PA or [...] Signature POC Glucose 172 65 - 199 [facility] mg/dL [facility] Comment: Supplemental ranges: <140 mg/dL before meals <180 mg/dL all other times of the day Specimen Anatomical Collection Method Collection Time Receive d Time (Source) Location / / Volume Laterality Blood specimen 07/06/2017 6:21 AM 017 6:21 (specimen) EST AM EST Daphne Shahid MD POINT OF CARE TEST ORDERABLE S Performing Organization Address City/State/[place] [address] POCT Glucose (07/06/2017 5:08 AM EST) athologist Signature POC Glucose 154 65 - 199 [facility] mg/dL [facility] Comment: Supplemental ranges: <140 mg/dL before meals <180 mg/dL all other times of the day Specimen Anatomical Collection Method Collection Time Receive d Time (Source) Location / / Volume Laterality Blood specimen 07/06/2017 5:08 AM 017 5:08 (specimen) EST AM EST Daphne Shahid MD POINT OF CARE TEST ORDERABLE S Performing Organization Address City/State/ZIP Code Phon e Number [address] POCT Glucose (07/06/2017 4:05 AM EST) athologist Signature POC Glucose 142 65 - [address] [facility] Comment: Supplemental ranges: <140 mg/dL before meals <180 mg/dL all other times of the day Specimen Anatomical Collection Method Collection Time Receive d Time (Source) Location / / Volume Laterality Blood specimen 07/06/2017 4:05 AM 017 4:05 (specimen) EST AM EST Daphne Shahid MD POINT OF CARE TEST ORDERABLE S Performing Organization Address City/State/ZIP Code Phon e Number [address] POCT Glucose (07/06/2017 3:00 AM EST) athologist Signature POC Glucose 116 65 - [address] [facility] Comment: Supplemental ranges: <140 mg/dL before meals <180 mg/dL all other times of the day Specimen Anatomical Collection Method Collection Time Receive d Time (Source) Location / / Volume Laterality Blood specimen 07/06/2017 3:00 AM 017 3:00 (specimen) EST AM EST Daphne Shahid MD POINT OF CARE TEST ORDERABLE S Performing Organization Address City/State/ZIP Code Phon e Number [address] Potassium (07/06/2017 2:20 AM EST) athologist Signature Potassium 3.9 3.5 - 5.0 [facility] mmol/L [facility] Comment: Please note: ??Patients with [...] Organization Address City/State/[place] [address] Differential, Automated (07/06/2017 2:20 AM EST) athologist Signature Neutrophils % 72.9 % [facility] Neutr Abs (ANC) 5.53 1.70 - [facility] 6.10 [facility] x10(3)/[facility] LABORATORY Lymphocytes % 16.4 % [facility] Lymphocytes Abs 1.2 0.9 - 3.2 [facility] x10(3)/[facility] LABORATORY Monocytes % 9.4 % [facility] Monocyte Abs 0.7 0.3 - 0.9 [facility] x10(3)/[facility] LABORATORY Eosinophils % 0.5 % [facility] Eosinophils Abs 0.0 0.0 - 0.4 [facility] x10(3)/[facility] LABORATORY Basophils % 0.4 % [facility] Basophils Abs 0.0 0.0 - 0.1 [facility] x10(3)/[facility] LABORATORY Immature Gran % 0.40 % [facility] Comment: Immature granulocytes(IG's)percentage an d absolute count will include metamyelocytes, myelocytes, and promyelo cytes. Blood smears from CBCs yielding IG's will be scanned manually for concor dance. If this scan disagrees with the automated IG or if promyelocytes are not ed, a manual differential will be performed. Melisa Gran Abs 0.03 0.00 - 0.04 x10(3)/[facility] LABORATORY Specimen Anatomical Collection Method Collection Time Receive d Time (Source) Location / / Volume Laterality Blood specimen 07/06/2017 2:20 AM 017 2:33 (specimen) EST AM EST Resulting Agency Comment Spec In Lab Daphne Shahid MD HEMATOLOGY ORDERABLES Performing Organization Address City/[facility]/[place] [address] (ABNORMAL) Hemogram (07/06/2017 2:20 AM EST) Analysis Performed At Patho logist Time Signature WBC 7.6 4.0 - 9.5 [facility] x10(3)/[facility] LABORATORY RBC 4.52 (L) 4.58 - [place] 5.54 [facility] x10(6)/[facility] LABORATORY Hemoglobin 13.4 (L) 13.7 [facility] 16.5 gm/dL [facility] Hematocrit 39.7 (L) 40.5 - [facility] 48.5 % [facility] LABORATORY MCV 87.8 82.9 - [facility] R[facility]AN 93.1 [facility] LABORATORY MCH 29.6 27.5 - [place] 32.1 pg [facility] MCHC 33.8 32.0 - [facility] R[facility] 35.7 gm/dL [facility]OR[facility]ORY Platelets 189 145 - 357 [facility] x10(3)/[facility] LABORATORY RDWSD 45.6 (H) 36.0 - [facility] 45.0 [facility] LABORATORY RDWCV 14.3 (H) 11.4 - [facility] R[facility]AN 13.8 % [facility] LABORATORY MPV 9.1 7.6 - 12.9 [facility] nRBC % Auto 0.0 % [facility] LABORATORY nRBC Abs Auto 0.000 0.000 - [place] 0.000 [facility] x10(3)/[facility] LABORATORY Specimen Anatomical Collection Method Collection Time Receive d Time (Source) Location / / Volume Laterality Blood specimen 07/06/2017 2:20 AM 017 2:33 (specimen) EST AM EST Resulting Agency Comment Spec In Lab Daphne Shahid MD HEMATOLOGY ORDERABLES Performing Organization Address City/State/ZIP Code [place] [address] (ABNORMAL) APTT (07/06/2017 2:20 AM EST) athologist Signature PTT 52 (H) 25 - 35 sec [facility] Comment: The recommended therapeutic range for fu ll dose, unfractionated heparin at [facility] is 80 ? 114 seconds. The use [...] [facility]/[place] [address] POCT Glucose (07/06/2017 2:20 AM EST) athologist Signature POC Glucose 115 65 - 199 [facility] mg/dL [facility] Comment: Supplemental ranges: <140 mg/dL before meals <180 mg/dL all other times of the day Specimen Anatomical Collection Method Collection Time Receive d Time (Source) Location / / Volume Laterality Blood specimen 07/06/2017 2:20 AM 017 2:20 (specimen) EST AM EST Daphne Shahid MD POINT OF CARE TEST ORDERABLE S Performing Organization Address City/State/[place] [address] (ABNORMAL) Cardiac Enzymes (LEB/CGP) (07/06/2017 2:20 AM EST) athologist Signature Troponin-T 2.13 (H) 0.00 - [facility] 0.00 ng/mL [facility] Comment: The 99th percentile for [...] additional sample may be indicated. Reference: Third [place] Definition of Myocardial Infarction. Journal of the [place] [employer] 2012;60:1581-98 CK, Total 129 0 - 200 unit/L [facility] Specimen Anatomical Collection Method Collection Time Receive d Time (Source) Location / / Volume Laterality Blood specimen 07/06/2017 2:20 AM 017 2:33 (specimen) EST AM EST Resulting Agency Comment Spec In Lab Daphne Shahid MD CHEMISTRY ORDERABLES Performing Organization Address City/State/ZIP Code Phon e Number [place] [id number] (ABNORMAL) Hemoglobin A1c (07/06/2017 [...] Mellitus, Diabetes Care 2013; 36: Suppl. 1, S67- Est Avg Gluc See note mg/dL PROCTOR [...] hemoglobinopathies. Additional resources are available on [facility] ADA website. Macario HAMMOND, Ruthann J, Deysi R, et al. ??Tr anslating the A1C assay into estimated average glucose values. ??Diabetes Care 2008:31(8):4356-6491. Specimen Anatomical Collection Method Collection Time Receive d Time (Source) Location / / Volume Laterality Blood specimen 07/06/2017 2:20 AM 017 2:34 (specimen) EST AM EST Resulting Agency Comment Spec In Lab Daphne Shahid MD CHEMISTRY ORDERABLES Performing Organization Address City/State/[place] [address] (ABNORMAL) Lipid Panel (07/06/2017 2:20 AM EST) [facility] Method Time Signature Chol, Total 150 <=239 [place] mg/dL [facility] LABORATORY Triglycerides 129 <=199 [place] mg/dL [facility] HDL 32 (L) >=40 [place] mg/dL [facility] LDL Cholesterol 92 <=190 [place] mg/dL [facility] Chol/HDL Ratio 4.7 ratio [place] [facility] Lipid See Note [place] Hernandes [facility] Comment: Lipid management should be guided by a p atient? s ASCVD risk, goals and preferences. ACC/AHA Guidelines recommend high intens ity statin if clinical ASCVD or LDL greater than or equal to 190 mg/dL. http://[employer]olis[employer] logistics.com/RPN-OFD-Tgsuewdec Adults aged 40-75 with LDL 70-189 mg/dL should have their 10 year ASCVD risk estimated with the ACC/AHA ASCVD risk es timator http://tools.acc.org/NLRXY-Gsdc-Izypdeyx r/ Statin should be discussed if risk [...] Address City/State/[place] [address] POCT Glucose (07/06/2017 1:09 AM EST) P athologist Signature POC Glucose 121 65 - 199 [facility] mg/dL [facility] Comment: Supplemental ranges: <140 mg/dL before meals <180 mg/dL all other times of the day Specimen Anatomical Collection Method Collection Time Receive d Time (Source) Location / / Volume Laterality Blood specimen 07/06/2017 1:09 AM 017 1:09 (specimen) EST AM EST Daphne Shahid MD POINT OF CARE TEST ORDERABLE S Performing Organization Address City/State/[place] [address] POCT Glucose (07/06/2017 12:06 AM EST) athologist Signature POC Glucose 147 65 - 199 [facility] mg/dL [facility] Comment: Supplemental ranges: <140 mg/dL before meals <180 mg/dL all other times of the day Specimen Anatomical Collection Method Collection Time Receive d Time (Source) Location / / Volume Laterality Blood specimen 07/06/2017 12:06 7 (specimen) AM EST 12:06 AM EST Daphne Shahid MD POINT OF CARE TEST ORDERABLE S Performing Organization Address City/State/[place] [address] (ABNORMAL) POCT Glucose (07/05/2017 10:56 PM EST) athologist Signature POC Glucose 200 (H) 65 - [address] [facility] Comment: Supplemental ranges: <140 mg/dL before meals <180 mg/dL all other times of the day Specimen Anatomical Collection Method Collection Time Receive d Time (Source) Location / / Volume Laterality Blood specimen 07/05/2017 10:56 7 (specimen) PM EST 10:56 PM EST Daphne Shahid MD POINT OF CARE TEST ORDERABLE S Performing Organization Address City/State/[place] [address] (ABNORMAL) POCT Glucose (07/05/2017 10:05 PM EST) athologist Signature POC Glucose 225 (H) 65 - 199 [place] RY[place] mg/dL [facility] Comment: Supplemental ranges: <140 mg/dL before meals <180 mg/dL all other times of the day Specimen Anatomical Collection Method Collection Time Receive d Time (Source) Location / / Volume Laterality Blood specimen 07/05/2017 10:05 7 (specimen) PM EST 10:05 PM EST Daphne Shahid MD POINT OF CARE TEST ORDERABLE S Performing Organization Address City/State/[place] [address] (ABNORMAL) POCT Glucose (07/05/2017 9:02 PM EST) P athologist Signature POC Glucose 301 (H) 65 - 199 [place] mg/dL [facility] Comment: Supplemental ranges: <140 mg/dL before meals <180 mg/dL all other times of the day Specimen Anatomical Collection Method Collection Time Receive d Time (Source) Location / / Volume Laterality Blood specimen 07/05/2017 9:02 PM 017 9:02 (specimen) EST PM EST Daphne Shahid MD POINT OF CARE TEST ORDERABLE S Performing Organization Address City/State/[place] [address] XR Chest PA or [...] 474 ms MUSE SYSTEM (Bezet) Calculated P Lena 50 degrees MUSE SYSTEM Calculated R Lena -28 degrees MUSE SYSTEM Calculated T Lena 90 degrees MUSE SYSTEM INTERPRETATION Sinus tachycardia [...] Neutr Abs (ANC) 9.08 (H) 1.70 - [facility] 6.10 [facility] x10(3)/[facility] L LABORATORY Lymphocytes % 7.0 % [facility] LABORATORY Lymphocytes Abs 0.7 (L) 0.9 - 3.2 [facility] x10(3)/[facility] LABORATORY Monocytes % 3.7 % [facility] LABORATORY Monocyte Abs 0.4 0.3 - 0.9 [facility] x10(3)/[facility] LABORATORY Eosinophils % 0.1 % [facility] LABORATORY Eosinophils Abs 0.0 0.0 - 0.4 [facility] x10(3)/[facility] LABORATORY Basophils % 0.2 % [facility] LABORATORY Basophils Abs 0.0 0.0 - 0.1 [facility] x10(3)/[facility] LABORATORY Immature Gran % 0.60 % [facility] [...] Gran Abs 0.06 (H) 0.00 - 0.04 x10(3)/[facility] LABORATORY Specimen Anatomical Collection Method Collection Time Receive d Time (Source) Location / / Volume Laterality Blood specimen 07/05/2017 8:20 PM 017 8:27 (specimen) EST PM EST Resulting Agency Comment Spec In Lab Daphne Shahid MD HEMATOLOGY ORDERABLES Performing Organization Address City/State/[place] [address] (ABNORMAL) Hemogram (07/05/2017 8:20 PM EST) Analysis Performed At Patho logist Time Signature WBC 10.3 (H) 4.0 - 9.5 [facility] x10(3)/[facility] LABORATORY RBC 4.64 4.58 - [place] 5.54 [facility] x10(6)/[facility] LABORATORY Hemoglobin 14.1 13.7 - [facility] 16.5 gm/dL [facility] LABORATORY Hematocrit 40.8 40.5 - [place] 48.5 % [facility] LABORATORY MCV 87.9 82.9 - [facility] 93.1 fL [facility] LABORATORY MCH 30.4 27.5 - [place] 32.1 pg [facility] LABORATORY MCHC 34.6 32.0 - [place] 35.7 gm/dL [facility] LABORATORY Platelets 204 145 - 357 [facility] x10(3)/[facility] LABORATORY RDWSD 46.1 (H) 36.0 - [place] 45.0 [facility] LABORATORY RDWCV 14.5 (H) 11.4 - [facility] 13.8 % [facility] LABORATORY MPV 9.7 7.6 - 12.9 [facility] LABORATORY nRBC % Auto 0.0 % [facility] LABORATORY nRBC Abs Auto 0.000 0.000 - [place] 0.000 [facility] x10(3)/[facility] LABORATORY Specimen Anatomical Collection Method Collection Time Receive d Time (Source) Location / / Volume Laterality Blood specimen 07/05/2017 8:20 PM 017 8:27 (specimen) EST PM EST Resulting Agency Comment Spec In Lab Daphne Shahid MD HEMATOLOGY ORDERABLES Performing Organization Address City/[facility]/ZIP Code Phon e Number [address] APTT (07/05/2017 8:20 PM EST) athologist Signature PTT 32 25 - 35 sec [facility] LABORATORY Comment: The recommended therapeutic range for fu ll dose, unfractionated heparin at [facility] is 80 ? 114 seconds. The use [...] [facility]/ZIP [facility] [place] [address] (ABNORMAL) Cardiac Enzymes (LEB/CGP) (07/05/2017 8:20 PM EST) athologist Signature Troponin-T 2.11 (H) 0.00 - [facility] 0.00 ng/mL [facility] LABORATORY Comment: The 99th percentile for [...] additional sample may be indicated. Reference: Third [place] Definition of Myocardial Infarction. Journal of the [place] College of Cardiology 2012;60:1581-98 CK, Total 149 [...] [facility]/[place]IP [place] [address] (ABNORMAL) Magnesium (07/05/2017 8:20 PM EST) P athologist Signature Magnesium 0.68 (L) 0.69 - 1.07 [facility] mmol/L [facility] LABORATORY Specimen Anatomical Collection Method Collection Time Receive d Time (Source) Location / / Volume Laterality Blood specimen 07/05/2017 8:20 PM 017 8:27 (specimen) EST PM EST Resulting Agency Comment Spec In Lab Daphne Shahid MD CHEMISTRY ORDERABLES Performing Organization Address City/State/[place] [address] (ABNORMAL) Basic Metabolic Panel (non-fasting) (07/05/2017 8:20 PM EST) athologist Signature Glucose Lvl 321 (H) 65 - 199 [facility] mg/dL [facility] LABORATORY Comment: [...] [facility] LAB[facility]ORY Estimated GFR >60 >=60 [facility] LABORATORY Comment: The reported eGFR should be multiplied b y 1.2 for patients. The MDRD is not an appropriate measure o f renal function for patients with body mass extremes or in patients with acute kidney failure. http://[employer].Amirite.com/DHnkdep http://METEOR Network/DHMCnkf Specimen Anatomical Collection Method Collection Time Receive d Time (Source) Location / / Volume Laterality Blood specimen 07/05/2017 8:20 PM 017 8:27 (specimen) EST PM EST Resulting Agency Comment Spec In Lab Daphne Shahid MD CHEMISTRY ORDERABLES Performing Organization Address City/State/[place] [address] (ABNORMAL) POCT Glucose (07/05/2017 7:32 PM EST) athologist Signature POC Glucose 296 (H) 65 - 199 [facility] mg/dL [facility] LABORATORY Comment: Supplemental ranges: <140 mg/dL before meals <180 mg/dL all other times of the day Specimen Anatomical Collection Method Collection Time Receive d Time (Source) Location / / Volume Laterality Blood specimen 07/05/2017 7:32 PM 017 7:32 (specimen) EST PM EST Daphne Shahid MD POINT OF CARE TEST ORDERABLE S Performing Organization Address City/State/[place] [address] CARDIAC CATHETERIZATION (07/05/2017 6:47 PM EST) Anatomical Region Laterality Modality Other Specimen (Source) Anatomical Location Collection Method / Collectio n Time Received Time / Laterality Volume Narrative 07/05/2017 7:27 PM EST ?[facility] ? Cardiac Cathete rization/Intervention Report ? Patient Name: Natalya, Gregory ? Procedure Date: 07/05/2017 ? A #: [id number] ? Primary Physician: Clarisa, Jet Sampson ? Case #: [id number] ? File Name: [id number] ? Catheterization Order Number: [id number] ? [facility] ? Final Report [place], [place] ? Patient Name: ? Gregory Natalya ?ID#: ?[id number] ? : ?1945 ? Procedure Date: ? [...] presented with: non -STEMI (w/i 7 days). Armstrong ?[employer]iovascular Society angina c lass was IV. [...] angio graphy and IABP insertion in laboratory equipment cleaner. ? Jet Mckenna, M.D. ? Electronically Signed by: Jet Sampson DeVlatrice s, M.D. ? Report Finalized: 07/05/2017 ??19:23 ? Report Last Ammended: 10/26/2017 ??10:29 ? Procedure Note Jet Mckenna MD - 10/26/2017Formatt ing of this note might be different from the original. [facility] Cardiac Catheterization/Intervention Re port Patient Name: Gregory Hoang Procedure Date: 07/05/2017 A #: [id number] Primary Physician: Jet Mckenna Case #: [id number] File Name: [id number] Catheterization Order Number: [id number] [facility] Final Report [place], [place] Patient Name: Gregory Hoang ID#: [id number] 3- : 1945 Procedure Date: July 05, [...] presented with: non-STEMI ( w/i 7 days). [employer] angina class was IV. No [...] angiograph y and IABP insertion in laboratory equipment cleaner. Jet Mckenna M.D. Electronically Signed by: Jet [...] Mccollum ? (Age): 1945(72y) Med Rec#: ? [id number] ?Sex: ?M ? Site Loc: ? [facility] ?Ht / Wt: ??173(cm)/86(kg) Pt. Loc: ?[facility] ? BSA: ?2 Study Date: ?? 07/05/2017 ?Pt. Type: Inpatient Tape: ? Referring: Daphne Shahid ([id number]) Referring: MANDA ALCANTAR Reading: Blade Preston ([id number]) Loop Cutter: Dayami Paula BA, [facility] [...] E-wave Vmax ?0.8 ?m/sec ? MV deceleration [id number] ?msec ? MV A-wave Vmax ?0.8 ?m/sec [...] ? Mid-Inferior ?Akinetic ? Mid-Inferoseptal ?Hypokinetic ? Otto-Septal ? Akinetic ? Otto-Anterior ? Hypokinetic ? Otto-Lateral ?Hypokinetic ? Otto-Inferior ? Akinetic ? Otto-Tip ?Akinetic ? This report has been electronically sign ed by: _ Blade Preston MD ? 07/06/2017 08 :53:15 Images reviewed and interpretation verif ied [facility] Cardiac Ultrasound Laboratory Procedure Note Blade Preston MD - 07/06/2017Formatt ing of this note might be different from the original. Procedure: Transthoracic Echocardiogram Patient: NATALYA MCBRIDE(Age): [birth year]72y) Med Rec#: [id number] Sex: M Site Loc: [facility] Ht / Wt: 173(cm)/86(kg) Pt. Loc: U BSA: 2 Study Date: 07/05/2017 Pt. Type: Inpatie nt Tape: Referring: Daphne Shahid ([id number]) Referring: MANDA ALCANTAR Reading: lBade Preston ([id number]) Loop Cutter: Dayami Paula BA, [facility] [...] MV E-wave Vmax 0.8 m/sec MV deceleration asrg572 msec MV A-wave Vmax 0.8 m/sec MV [...] Hypokinetic Mid-Posterolateral Hypokinetic Mid-Inferior Akinetic Mid-Inferoseptal Hypokinetic Otto-Septal Akinetic Otto-Anterior Hypokinetic Otto-Lateral Hypokinetic Otto-Inferior Akinetic Otto-Tip Akinetic This report has been electronically sign ed by: _ Blade Preston MD 07/06/2017 08:53:15 Images reviewed and interpretation verif ied [facility] Cardiac Ultrasound Laboratory Daphne Shahid MD ECHO ORDERABLES Differential, Automated (07/05/2017 4:55 PM EST) athologist Signature Neutrophils % 77.0 % [facility] LABORATORY Neutr Abs (ANC) 5.26 1.70 - [facility] 6.10 [facility] x10(3)[facility] LABORATORY Lymphocytes % 13.3 % [facility] Lymphocytes Abs 0.9 0.9 - 3.2 [facility] x10(3)/[facility] LABORATORY Monocytes % 8.2 % [facility] Monocyte Abs 0.6 0.3 - 0.9 [facility] x10(3)/[facility] LABORATORY Eosinophils % 0.7 % [facility] Eosinophils Abs 0.0 0.0 - 0.4 [facility] x10(3)/[facility] LABORATORY Basophils % 0.4 % [facility] Basophils Abs 0.0 0.0 - 0.1 [facility] x10(3)/[facility] LABORATORY Immature [...] Gran Abs 0.03 0.00 - 0.04 x10(3)/[facility] LABORATORY Specimen Anatomical Collection Method Collection Time Receive d Time (Source) Location / / Volume Laterality Blood specimen 07/05/2017 4:55 PM 017 5:24 (specimen) EST PM EST Resulting Agency Comment Spec In Lab Daphne Shahid MD HEMATOLOGY ORDERABLES Performing Organization Address City/State/[place] [address] (ABNORMAL) Hemogram (07/05/2017 4:55 PM EST) Analysis Performed At Patho logist Time Signature WBC 6.8 4.0 - 9.5 [facility] x10(3)/[facility] LABORATORY RBC 4.67 4.58 - [place] 5.54 [facility] x10(6)/[facility] LABORATORY Hemoglobin 14.0 13.7 - [facility] 16.5 gm/dL [facility] LABORATORY Hematocrit 41.0 40.5 - [facility] 48.5 % [facility] LABORATORY MCV 87.8 82.9 - [facility] 93.1 [facility] LABORATORY MCH 30.0 27.5 - [place] 32.1 pg [facility] LABORATORY MCHC 34.1 32.0 - [facility] 35.7 gm/dL [facility] LABORATORY Platelets 197 145 - 357 [facility] x10(3)/[facility] LABORATORY RDWSD 46.4 (H) 36.0 - [facility] 45.0 [facility] LABORATORY RDWCV 14.5 (H) 11.4 - [facility] 13.8 % [facility] LABORATORY MPV 9.7 7.6 - 12.9 [facility] nRBC % Auto 0.0 % [facility] LABORATORY nRBC Abs Auto 0.000 0.000 - [facility] 0.000 [facility] x10(3)/[facility] LABORATORY Specimen Anatomical Collection Method Collection Time Receive d Time (Source) Location / / Volume Laterality Blood specimen 07/05/2017 4:55 PM 017 5:24 (specimen) EST PM EST Resulting Agency Comment Spec In Lab Daphne Shahid MD HEMATOLOGY ORDERABLES Performing Organization Address City/State/ZIP Code Phon e Number [facility] [place] [address] (ABNORMAL) Cardiac Enzymes (LEB/CGP) (07/05/2017 4:55 PM EST) athologist Signature Troponin-T 1.69 (H) 0.00 - [place] 0.00 ng/mL [facility] LABORATORY Comment: The 99th percentile for [...] additional sample may be indicated. Reference: Third [place] Definition of Myocardial Infarction. Journal of the [place] College of Cardiology 2012;60:1581-98 CK, Total 191 0 - 200 unit/L [facility] LABORATORY Specimen Anatomical Collection Method Collection Time Receive d Time (Source) Location / / Volume Laterality Blood specimen 07/05/2017 4:55 PM 017 5:56 (specimen) EST PM EST Resulting Agency Comment Spec In Lab Daphne Shahid MD CHEMISTRY ORDERABLES Performing Organization Address City/State/[place] [address] (ABNORMAL) pro-Brain Natriuretic Peptide (07/05/2017 4:55 PM EST) athologist Signature ProBNP 1,598 (H) <=125 [facility] pg/mL [facility] LABORATORY Specimen Anatomical Collection Method Collection Time Receive d Time (Source) Location / / Volume Laterality Blood specimen 07/05/2017 4:55 PM 017 5:24 (specimen) EST PM EST Resulting Agency Comment Spec In Lab Daphne Shahid MD CHEMISTRY ORDERABLES Performing Organization Address City/State/ZIP Code Phon e Number [address] Magnesium (07/05/2017 4:55 PM EST) P athologist Signature Magnesium 0.78 0.69 - 1.07 [facility] mmol/L [facility] LABORATORY Specimen Anatomical Collection Method Collection Time Receive d Time (Source) Location / / Volume Laterality Blood specimen 07/05/2017 4:55 PM 017 5:24 (specimen) EST PM EST Resulting Agency Comment Spec In Lab Daphne Shahid MD CHEMISTRY ORDERABLES Performing Organization Address City/[facility]/ZIP Code Phon e Number [address] (ABNORMAL) Basic Metabolic Panel (non-fasting) (07/05/2017 4:55 PM EST) P athologist Signature Glucose Lvl 230 (H) 65 - 199 [facility] mg/dL [facility] LABORATORY Comment: [...] Anion Gap 14 5 - 15 mmol/L [facility] LAB[facility]ORY Calcium 8.5 8.5 - 10.5 mg/dL [facility] Linnea [facility] LABORATORY Estimated GFR >60 >=60 [place] [facility] LABORATORY Comment: The reported eGFR should be multiplied b y 1.2 for patients. The MDRD is not an appropriate measure o f renal function for patients with body mass extremes or in patients with acute kidney failure. http://METEOR Network/nkdep http://[employer] Network/[facility]EAUnkf Specimen Anatomical Collection Method Collection Time Receive d Time (Source) Location / / Volume Laterality Blood specimen 07/05/2017 4:55 PM 017 5:24 (specimen) EST PM EST Resulting Agency Comment Spec In Lab Daphne Shahid MD CHEMISTRY ORDERABLES Performing Organization Address City/[facility] [place] [address] (ABNORMAL) APTT (07/05/2017 4:55 PM EST) P athologist Signature PTT 41 (H) 25 - 35 sec [facility] LABORATORY Comment: The recommended therapeutic range for fu ll dose, unfractionated heparin at [facility] is 80 ? 114 seconds. The use [...] [facility]/ZIP [facility] [place] [address] (ABNORMAL) POCT Glucose (07/05/2017 4:53 PM EST) P athologist Signature POC Glucose 208 (H) 65 - 199 [facility] mg/dL [facility] LABORATORY Comment: Supplemental ranges: <140 mg/dL before meals <180 mg/dL all other times of the day Specimen Anatomical Collection Method Collection Time Receive d Time (Source) Location / / Volume Laterality Blood specimen 07/05/2017 4:53 PM 017 4:53 (specimen) EST PM EST Daphne Shahid MD POINT OF CARE TEST ORDERABLE S Performing Organization Address City/State/[place] [address] EKG 12 Lead (07/05/2017 4:32 PM EST) Component Value Ref Range Test Analysis Performed Pathologis t Method Time At Signature Ventricular rate 97 BPM MUSE SYSTEM Atrial Rate 97 BPM MUSE SYSTEM P-R Interval 148 ms MUSE SYSTEM QRS Duration 96 ms MUSE SYSTEM Q-T Interval 364 ms MUSE SYSTEM QTC Calculated 462 ms MUSE SYSTEM (Bezet) Calculated P Lena 48 degrees MUSE SYSTEM Calculated R Lena -33 degrees MUSE SYSTEM Calculated T Lena 98 degrees MUSE SYSTEM INTERPRETATION Normal sinus [...] Coronary atherosclerosis of unspecified type of vessel, [place] or graft Cardiomyopathy, ischemic Other specified forms [...] in dextrose 5% 250 mL EST infusion (STATE [employer]ARM AGENT) CONTINUOUS PRN, Starting on Wed07/05/17 at 1837, [...] Denice Jacobson, VAMSI)0932 (New Bag - Provider: Mryna Young, VAMSI)1002 (Stopped - Provider: Myrna Young [...] 10 mg 0921 (Given - Provider: Myrna Yuong, VAMSI) 10 mg, Oral, DAILY, First dose [...] Ale Rangel, VAMSI) 0615 (Given - Provider: Ael Rangel , VAMSI)1311 (Given - Provider: Em [...]
Routine documented in this encounter Care Teams Advertising Sales Assistant Relationship Specialty Start Date End Date Lovely Vicente MD PCP - General 04/16/[address] [place] [address] documented as of this encounter
--- OUTSIDE RECORDS SUMMARY | 2022-04-13 08:17 | XMS_ITS | Encounter Summary ---
:1945 Author Organization [facility] [place] [address] Care Team Providers Name Role Phone Lovely Vicente MD Primary Care Provider Reason for Visit Reason Comments Thyroid Cancer Encounter Details Date Type Department Care Team Description 06/05/2015 Office Visit Endocrinology at [facility] Albertina Prescott, History of papillary [facility] MD Luz adenocarcinoma of [facility] thyroid (Primary Dx) [place] [address] CENTER [phone] [place] [address] Social History Tobacco Use Types Packs/Day Years [...] the thyroid gland were obtained using a [employer] ultrasound machine. All measurements are given as AP x Transverse x Longitudinal Right Lobe: Absent Left Lobe: Absent Isthmus: Absent Central/Lateral neck: no morphologically abnormal lymph nodes. Impression: No sonographic evidence of recurrence. LUZ PRESCOTT MD [employer] Concession Managerradar systems engineer Section of Endocrinology [facility] Luz Prescott MD - 06/05/2015 8:21 AM [...] Strip by [facility].(Non-Drug; Combo Route) route 2 [...] --f/u in 1 year LUZ PRESCOTT MD [employer] Con[employer] Managerradar systems engineer Section of Endocrinology [facility] documented in this encounter Miscellaneous Notes Addendum [...] MD [facility] [address] [place], [place] [address] (Wo rk) 05/28/2022 Laboratory Appointment Lab 05/28/2022 Office Visit Cardiology Zulma Dolan MD [facility] [place] [address] Liz Poole PA [facility] [place] [address] 06/10/2022 Office Visit Dermatology Laura Scherer MD [facility] ER [address] [place], [place] [address] (Wo rk) documented as [...] athologist Signature Thyroglobulin 0.6 <=54.9 CERNER ng/mL [facility] Comment: Interpret with caution. Tg levels may [...] BR et al. J Clin Endo Metab 1999;84:8932-4702). 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
--- OUTSIDE RECORDS SUMMARY | 2022-04-13 08:17 | XMS_ITS | Encounter Summary ---
:1945 Author Organization [facility] [place] [address] Care Team Providers Name Role Phone Lovely Vicente MD Primary Care Provider Reason for Visit Reason Onset Date Comments Pre Procedure Call 12/02/2016 Encounter Details Date Type Department Care Team Description 12/02/[address] [facility] Mira James LPN Pre Procedure Call [address] [place] [address] Social History Tobacco Use Types Packs/Day [...] Cardiology Zulma Dolan MD [facility] [place], [place] [address] (Wo lissa) 05/28/2022 Laboratory Appointment Lab 05/28/2022 Office Visit Cardiology Zulma Dolan MD [facility] [place] [address] Liz Poole PA [facility] [place] [address] 06/10/2022 Office Visit Dermatology Laura Scherer MD [facility] [address] [place], [place] [address] (Wo rk) documented as of this encounter Visit Diagnoses Not on filedocumented in this encounter Care Teams Supervisor [employer] Relationship Specialty Start Date End Date Lovely Vicente MD PCP - General 04/16/[address] [place] [address] documented as of this encounter
--- OUTSIDE RECORDS SUMMARY | 2022-04-13 08:17 | XMS_ITS | Encounter Summary ---
:1945 Author Organization [facility] [place] [address] Care Team Providers Name Role Phone Som Holliday APRN Primary Care Provider Encounter Details Date Type Department Care Team Description 04/11/2014 Procedure visit [facility]enterology [place] [facility] [place] Esophageal reflux [facility] Luz Winchester RN (Primary Dx) [place] [address] Social History Tobacco Use Types Packs/Day Years Used Date Former Smoker Alcohol Use Standard Drinks/Week Comments No 0 (1 standard drink = 0.6 oz pure alcoho l) Sex Assigned at Date Recorded Not on file documented as of this encounter Progress Notes Adalid Can MD - 04/13/2014 3:43 PM EDT ESOPHAGEAL MANOMETRY Don Fatima Male, 69 yrs, 1945 PCP: SOM HOLLIDAY MATERIAL COMBINER: NONE STUDY DATE: 04/11/14 PROVIDER: Adal[place], [place] ([id number]) INDICATION Reflux; preoperative evaluation. METHODS Stationary esophageal manometry was performed with the [employer] esophageal motility system utilizing the Polygram software [...] of the esophagus. Adalid Can, PhD, MD nuclear medical tech, [facility] [employer] Section of Gastroenterology and Hepatology [facility] [place] [address] V: [phone] F: [phone] [facility]/gabriela CC/EC: PCP - staff msg copy 04/13/14 Henrique Taylor MD - fax copy 04/13/14 Luz Keller RN - 04/11/2014 8:14 AM EDT Esophageal manometry performed without difficulty and Was well tolerated. documented in this encounter Plan of Treatment Upcoming Encounters Date Type Specialty Care Team Description 05/28/2022 Appointment Cardiology Zulma Dolan MD [facility] [place], [place] [address] (Wo rk) 05/28/2022 Laboratory Appointment Lab 05/28/2022 Office Visit Cardiology Zulma Dolan MD [facility] [place] [address] Liz Poole PA [facility] [place] [address] 06/10/2022 Office Visit Dermatology Laura Scherer MD [facility] DR [address]-DERMAT [place], [place] [address] (Wo rk) documented as of this encounter Visit Diagnoses Diagnosis Esophageal reflux - Primary documented in this encounter Care Teams Redevelopment Manager Relationship Specialty Start Date End Date Som Holliday APRN PCP - General 01/25/13 04/15/[address] [place] [address] documented as of this encounter
--- OUTSIDE RECORDS SUMMARY | 2022-04-13 08:17 | XMS_ITS | Encounter Summary ---
:1945 Author Organization [facility] [place] [address] Care Team Providers Name Role Phone Lovely Vicente MD Primary Care Provider Reason for Visit Reason Comments Skin Lesion Encounter Details Date Type Department Care Team Description 11/24/2016 [facility] skin; Road IIIMD Pigmented skin lesion of uncertain natur e; [address] [facility] [place] of [place] [address] [facility] SIMÓN-DERMATOLGY [place], [place] [address] Social History Tobacco Use Types [...] or concerns, please call the office at [phone]. If it is after 5PM, or a holiday or weekend, please call [phone] and ask for the [employer] Executive on-call. documented in this encounter Progress Notes [...] 71 y.o. year old male.Established patient of [facility]. Last seen 06/05/16. Here today for new [...] Dolan MD [facility] er [place] [address] (Wo rk) 05/28/2022 Laboratory Appointment Lab 05/28/2022 Office Visit Cardiology Zulma Dolan MD [facility] [place] [address] Liz Poole PA [facility] [place] [address] 06/10/2022 Office Visit Dermatology Laura Scherer MD [facility] ER [address]-DERMAT [place], [place] [address] (Wo rk) documented as [...] [facility] gist Range Method Time Signature Surgical [id number] ?Location: Report The signing pathologist has (i) examined [...] Organization Address City/State/[place] [address] Specimen to Pathology (NON-OR) (11/24/2016 8:28 AM EDT) Specimen Anatomical Collection Method Collection Time Receive d Time (Source) Location / / Volume Laterality AP Specimen 11/24/2016 8:28 AM 7 9:29 EDT AM EDT Narrative [facility] - 11/24/2016 9:29 AM EDT Specimen requisition ordered. ??Separate Pathology report to follow Resulting Agency Comment Spec In Lab Rigoberto Garcia III, MD PATHOLOGY/CYTOLOGY ORDERABLE S Performing Organization Address City/State/[place] [address] documented in this encounter Visit Diagnoses Diagnosis Neoplasm of uncertain behavior of skin Pigmented skin lesion of uncertain natur e History of melanoma Personal history of malignant melanoma o f skin documented in this encounter Care Teams Digital Controls Technical Officer Relationship Specialty Start Date End Date Lovely Vicente MD PCP - General 04/16/[address] [place] [address] documented as of this encounter
--- OUTSIDE RECORDS SUMMARY | 2022-04-13 08:17 | XMS_ITS | Encounter Summary ---
:1945 Author Organization [facility] [place] [address] Care Team Providers Name Role Phone Lovely Vicente MD Primary Care Provider Reason for Visit Reason Comments Skin Check Encounter Details Date Type Department Care Team Description 04/16/2015 Follow-Up Dermatology at [facility] x of melanoma of skin; Abdelrahman HOOPER MD Multiple benign nevi [address] [place] [address] [facility]-[place] [place], [place] [address] (Wo rk) Social History [...] (ACCU-CHEK COMPACT TEST) Strip by [facility]Non- Drug; Combo Route) route 2 times daily. [...] Zulma Dolan MD [facility] [place], [place] [address] (Wo rk) 05/28/2022 Laboratory Appointment Lab 05/28/2022 Office Visit Cardiology Zulma Dolan MD [facility] [place] [address] Liz Poole PA [facility] [place] [address] 06/10/2022 Office Visit Dermatology Laura Scherer MD [facility] [address] GR-DERMAT [place], [place] [address] (Wo rk) documented as of this encounter Visit Diagnoses Diagnosis Hx of melanoma of skin Personal history of malignant melanoma o f skin Multiple benign nevi Benign neoplasm of skin, site unspecifie d documented in this encounter Care Teams Excavating Contractor Relationship Specialty Start Date End Date Lovely Vicente MD PCP - General 04/16/[address] [place] [address] [address] [place] [address] documented as of this encounter
--- OUTSIDE RECORDS SUMMARY | 2022-04-13 08:17 | XMS_ITS | Encounter Summary ---
:1945 Author Organization [facility] [place] [address] Care Team Providers Name Role Phone Lovely Vicente MD Primary Care Provider Reason for Visit Reason Onset Date Comments Medication Refill 06/19/2016 Encounter Details Date Type Department Care Team Description 06/19/2016 Refill Endocrinology at [facility] Luz Stallings MD [facility] [place] [address] ENDOCRINOLOGY DEPT [phone] [place], [place] [address] (Wo rk) Social History [...] [facility] er [address] [place] [address] (Wo rk) 05/28/2022 Laboratory Appointment Lab 05/28/2022 Office Visit Cardiology Zulma Dolan MD [facility] [place] [address] Liz Poole PA [facility] [place] [address] 06/10/2022 Office Visit Dermatology Laura Scherer MD [facility] [address]DERMAT [place], [place] [address] (Wo rk) documented as of this encounter Visit Diagnoses Not on filedocumented in this encounter Care Teams Fire Extinguisher Tester Relationship Specialty Start Date End Date Lovely Vicente MD PCP - General 04/16/[address] [place], [place] [address] documented as of this encounter
--- OUTSIDE RECORDS SUMMARY | 2022-04-13 08:17 | XMS_ITS | Encounter Summary ---
:1945 Author Organization [facility] [place] [address] Care Team Providers Name Role Phone Lovely Vicente MD Primary Care Provider Reason for Visit Reason Onset Date Comments Medication Refill 12/24/2016 Encounter Details Date Type Department Care Team Description 12/24/2016 Refill Endocrinology at [facility] Luz Stallings MD [facility] [place] [address] ENDOCRINOLOGY DEPT [phone] [place], [place] [address] (Wo rk) Social History [...] [facility] [place] [address] [place] [address] (Wo rk) 05/28/2022 Laboratory Appointment Lab 05/28/2022 Office Visit Cardiology Zulma Dolan MD [facility] [place] [address] Liz Poole PA [facility] [place] [address] 06/10/2022 Office Visit Dermatology Laura Scherer MD [facility] DR [address] GR-DERMAT [place], [place] [address] (Wo rk) documented as of this encounter Visit Diagnoses Not on filedocumented in this encounter Care Teams Field Checker Relationship Specialty Start Date End Date Lovely Vicente MD PCP - General 04/16/[address] [place], [place] [address] documented as of this encounter
--- OUTSIDE RECORDS SUMMARY | 2022-04-13 08:17 | XMS_ITS | Encounter Summary ---
:1945 Author Organization [facility] [place] [address] Care Team Providers Name Role Phone Lovely Vicente MD Primary Care Provider Encounter Details Date Type Department Care Team Description 07/10/2016 Telephone Dermatology at [facility] Rigoberto White III, [address] [place] [address] [facility] [phone] [facility] MAR[facility]DER[facility] [place], [place] [address] (Wo rk) Social History Tobacco [...] Dolan MD [facility] Dr [place], [place] [address] (Wo rk) 05/28/2022 Laboratory Appointment Lab 05/28/2022 Office Visit Cardiology Zulma Dolan MD [facility] [place] [address] Liz Poole PA [facility] [place] [address] 06/10/2022 Office Visit Dermatology Laura Scherer MD [facility] DR TE[address] MARIE-DERMAT [place], [place] [address] (Wo rk) documented as of this encounter Visit Diagnoses Not on filedocumented in this encounter Care Teams Alumni Relations Officer Relationship Specialty Start Date End Date Lovely Vicente MD PCP - General 04/16/15 [facility] [address] [place] [address] documented as of this encounter
--- OUTSIDE RECORDS SUMMARY | 2022-04-13 08:17 | XMS_ITS | Encounter Summary ---
:1945 Author Organization [facility] [place] [address] Care Team Providers Name Role Phone Lovely Vicente MD Primary Care Provider Reason for Visit Reason Comments Follow-up Encounter Details Date Type Department Care Team Description 06/03/2017 Office Visit Dermatology at [facility] benign nevi; Abdelrahman HOOPER MD History of melanoma; [address] [facility] History of dysplastic nevus; [place] [address] Skin exam for malignant neoplasm [phone] [facility]-DER[facility]OLGY [place], [place] [address] Social History Tobacco Use Types [...] Cardiology Zulma Dolan MD [facility] [place], [place] [address] (Wo rk) 05/28/2022 Laboratory Appointment Lab 05/28/2022 Office Visit Cardiology Zulma Dolan MD [facility] [place] [address] Liz Poole PA [facility] [place] [address] 06/10/2022 Office Visit Dermatology Laura Scherer MD [facility] DR [address]DER[address] [place], [place] [address] (Wo rk) documented as of [...] skin documented in this encounter Care Teams Tap Dancer Relationship Specialty Start Date End Date Lovely Vicente MD PCP - General 04/16/15 [facility] [address] [place] [address] documented as of this encounter
--- OUTSIDE RECORDS SUMMARY | 2022-04-13 08:17 | XMS_ITS | Encounter Summary ---
:1945 Author Organization [facility] [place] [address] Care Team Providers Name Role Phone Lovely Vicente MD Primary Care Provider Encounter Details Date Type Department Care Team Description 11/28/2016 Telephone Dermatology at [facility] Rigoberto Garcia III, [address] [place] [address] [facility] [phone] [facility] SIMÓN-DERMAT [place], [place] [address] (Wo rk) Social History Tobacco [...] provider. Rigoberto Garcia MD Section of Dermatology [facility] documented in this encounter Plan of Treatment Upcoming Encounters Date Type Specialty Care Team Description 05/28/2022 Appointment Cardiology Zulma Dolan MD [facility] [address] [place], [place] [address] (Wo rk) 05/28/2022 Laboratory Appointment Lab 05/28/2022 Office Visit Cardiology Zulma Dolan MD [facility] [place] [address] Liz Poole PA [facility] [place] [address] 06/10/2022 Office Visit Dermatology Laura Scherer MD [facility] DR TE[address] MARIE-DERMAT [place], [place] [address] (Wo rk) documented as of this encounter Visit Diagnoses Not on filedocumented in this encounter Care Teams Loan Review Manager Relationship Specialty Start Date End Date Lovely Vicente MD PCP - General 04/16/[address] [place] [address] documented as of this encounter
--- OUTSIDE RECORDS SUMMARY | 2022-04-13 08:17 | XMS_ITS | Encounter Summary ---
:1945 Author Organization [facility] [place] [address] Care Team Providers Name Role Phone Lovely Vicente MD Primary Care Provider Reason for Visit Reason Comments Skin Check Encounter Details Date Type Department Care Team Description 06/05/2016 Office Visit Dermatology at [facility] istory of melanoma; Abdelrahman HOOPER MD Seborrheic keratosis; [address] [facility] [place] (actinic keratosis); [place] [address] Multiple nevi; [phone] [facility] [address]-DERMATOLGY [place], [place] [address] Social History Tobacco Use Types [...] COMPACT TEST) Strip by [facility]Non- Drug; Combo Route) route 2 times daily. [...] Zulma Dolan MD [facility] [place], [place] [address] (Wo rk) 05/28/2022 Laboratory Appointment Lab 05/28/2022 Office Visit Cardiology Zulma Dolan MD [facility] [place] [address] Liz Poole PA [facility] [place] [address] 06/10/2022 Office Visit Dermatology Laura Scherer MD [facility] DR TE[address] GR-DERMAT [place], [place] [address] (Wo rk) documented as of this encounter Visit Diagnoses Diagnosis History of melanoma Personal history of malignant melanoma o f skin Seborrheic keratosis Other seborrheic keratosis [place] (actinic keratosis) Actinic keratosis Multiple nevi Benign neoplasm of skin, site unspecifie d Scar Scar condition and fibrosis of skin documented in this encounter Care Teams Wad Printing Machine Operator Relationship Specialty Start Date End Date Lovely Vicente MD PCP - General 04/16/[address] [place] [address] documented as of this encounter
--- OUTSIDE RECORDS SUMMARY | 2022-04-13 08:17 | XMS_ITS | Encounter Summary ---
:1945 Author Organization [facility] Address [facility] [place] [address] Care Team Providers Name Role Phone Lovely Vicente MD Primary Care Provider Reason for Visit Reason Comments Skin Check Encounter Details Date Type Department Care Team Description 11/05/2015 Office Visit Dermatology at [facility] benign nevi; Abdelrahman HOOPER MD Lentigines; [address] [facility] History of melanoma; [place] [address] Skin exam for malignant neoplasm [phone] [facility] [place], [place] [address] Social History Tobacco Use Types [...] the presence of Dr. Garcia.: GINNY CHRISTIANSEN ENDORSEMENT CLERK and Judit Cruz, Clinical Scribe I performed the above scribed service and agree with the accuracy of the documentation in this encounter. Rigoberto Garcia MD Section of Dermatology [facility] documented in this encounter Plan of Treatment Upcoming Encounters Date Type Specialty Care Team Description 05/28/2022 Appointment Cardiology Zulma Dolan MD [facility] [address] [place], [place] [address] (Wo rk) 05/28/2022 Laboratory Appointment Lab 05/28/2022 Office Visit Cardiology Zulma Dolan MD [facility] [place] [address] Liz Poole PA [facility] [place] [address] 06/10/2022 Office Visit Dermatology Laura Scherer MD [facility] [address] GR-DERMAT [place], [place] [address] (Wo rk) documented as of this encounter Visit Diagnoses Diagnosis Multiple benign nevi Benign neoplasm of skin, site unspecifie d Lentigines Other dyschromia History of melanoma Personal history of malignant melanoma o f skin Skin exam for malignant neoplasm Screening for malignant neoplasm of the skin documented in this encounter Care Teams Matchbook Maker Relationship Specialty Start Date End Date Lovely Vicente MD PCP - General 04/16/15 [facility] [address] [place] [address] (work) documented as of this encounter
--- OUTSIDE RECORDS SUMMARY | 2022-04-13 08:17 | XMS_ITS | Encounter Summary ---
:1945 Author Organization [place] [place] [address] Care Team Providers Name Role Phone Lovely Vicente MD Primary Care Provider Reason for Visit Reason Comments Medication Refill Encounter Details Date Type Department Care Team Description 05/10/2015 Refill Endocrinology at [facility] Rosalind Covarrubias, [facility] [place] [address] [facility] [phone] ENDOCRINOLOGY [place], [place] [address] (Wo rk) Social History Tobacco [...] MD [facility] er [address] [place], [place] [address] (Wo rk) 05/28/2022 Laboratory Appointment Lab 05/28/2022 Office Visit Cardiology Zulma Dolan MD [facility] [place] [address] Liz Poole PA [facility] [place] [address] 06/10/2022 Office Visit Dermatology Laura Scherer MD [facility] ER DR [address]-DERMAT [place], [place] [address] (Wo rk) documented as of this encounter Visit Diagnoses Not on filedocumented in this encounter Care Teams Repair Servicer Relationship Specialty Start Date End Date Lovely Vicente MD PCP - General 04/16/[address] [place] [address] documented as of this encounter
--- OUTSIDE RECORDS SUMMARY | 2022-04-13 08:17 | XMS_ITS | Encounter Summary ---
:1945 [place] [address] Care Team Providers Name Role Phone Lovely Vicente MD Primary Care Provider Reason for Visit Reason Onset Date Comments Other 12/09/2016 RESULTS Encounter Details Date Type Department Care Team Description 12/09/2016 Telephone Dermatology at [facility] Halima Cadet MD Other (RESULTS) [address] [facility] [address] [facility] [phone] [place], [place] [address] (Wo rk) Social History [...] EDT Spoke with patient's , Kisha (personal branch customer service representative). I advised her Don's pathology results [...] back. She can be reached back at [phone] documented in this encounter Plan of Treatment Upcoming Encounters Date Type Specialty Care Team Description 05/28/2022 Appointment Cardiology Zulma Dolan MD [facility] [place], [place] [address] (Wo rk) 05/28/2022 Laboratory Appointment Lab 05/28/2022 Office Visit Cardiology Zulma Dolan MD [facility] [place] [address] Liz Poole PA [facility] [place] [address] 06/10/2022 Office Visit Dermatology Laura Scherer MD [facility] [address]DERMAT [place], [place] [address] (Wo rk) documented as of this encounter Visit Diagnoses Not on filedocumented in this encounter Care Teams Hydraulic Pile Hammer Operator Relationship Specialty Start Date End Date Lovely Vicente MD PCP - General 04/16/[address] [place] [address] documented as of this encounter
--- OUTSIDE RECORDS SUMMARY | 2022-04-13 08:17 | XMS_ITS | Encounter Summary ---
:1945 Author Organization [facility] [place] [address] Care Team Providers Name Role Phone Lovely Vicente MD Primary Care Provider Encounter Details Date Type Department Care Team Description 07/05/2017 Telephone Cardiology Kim Galindo MD [facility] [place] [address] CARDIOLOGY DEPT [phone] [place], [place] [address] (Wo rk) Social History [...] 1:54pm Referring Provider: Ivania CROWELL) Patient Location: [facility] Presenting Symptoms per OSH: 72 [...] elevated troponin, transport [facility] [place] this afternoon and arrhythmia monitoring. Kim Galindo MD Volleyball Referee documented in this encounter Plan of Treatment Upcoming Encounters Date Type Specialty Care Team Description 05/28/2022 Appointment Cardiology Zulma Dolan MD [facility] [place], [place] [address] (Wo rk) 05/28/2022 Laboratory Appointment Lab 05/28/2022 Office Visit Cardiology Zulma Dolan MD [facility] [place] [address] [facility] [place] [address] 06/10/2022 Office Visit Dermatology Laura Scherer MD [facility] DR [address] GR-DERMAT [place], [place] [address] (Wo rk) documented as of this encounter Visit Diagnoses Not on filedocumented in this encounter Care Teams Bariatric Program Coordinator Relationship Specialty Start Date End Date Lovely Vicente MD PCP - General 04/16/[address] [place] [address] documented as of this encounter
--- OUTSIDE RECORDS SUMMARY | 2022-04-13 08:18 | XMS_ITS | Encounter Summary ---
:1945 Author Organization [facility] [place] [address] Care Team Providers Name Role Phone Angela Holldiay APRN Primary Care Provider Reason for Visit Reason Comments Other Encounter Details Date Type Department Care Team Description 08/01/2013 Telephone Dermatology at [facility] Rigoberto Garcia III, [address] [place] [address] [facility] [phone] TEJA MARIE-DERMAT [place], [place] [address] (Wo rk) Social History [...] them. Component Value Surgical Pathology Final Report [facility] Provider: RIGOBERTO GARCIA III Pt. Name: DON HOANG Acc #: [id number] Pt. 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 CR-0 08/01/13 BJM 08/01/13 Verified by: Ian STRANGE, PhD, [facility] Dermatopathologist (Electronic Signature) The attending pathologist [...] Zulma Dolan MD [facility] [place], [place] [address] (Wo lissa) 05/28/2022 Laboratory Appointment Lab 05/28/2022 Office Visit Cardiology Zulma Dolan MD [facility] [place] [address] Liz Poole PA [facility] [place] [address] 06/10/2022 Office Visit Dermatology Laura Scherer MD [facility] DR TEJA MARIE-DERMAT [place], [place] [address] (Wo rk) documented as of this encounter Visit Diagnoses Not on filedocumented in this encounter Care Teams Legal Records Clerk Relationship Specialty Start Date End Date Angela Holliday APRN PCP - General 01/25/13 04/15/[address] [place] [address] documented as of this encounter
--- OUTSIDE RECORDS SUMMARY | 2022-04-13 08:18 | XMS_ITS | Encounter Summary ---
:1945 Author Organization [facility] [place] [address] Care Team Providers Name Role Phone MiyaLokeshAngela STACIE Primary Care Provider Encounter Details Date Type Department Care Team Description 01/16/2014 Hospital Encounter Gastroenterology at [facility] Nohemi Swann, [facility] [place] [address] [facility] [phone] [facility] DE[facility]. [place], [place] 0[address] Social History Tobacco Use [...] you need to be checked. [facility] [phone] 8a-5p Same Day Endo [phone] 7a-8p Otherwise contact [phone] and ask to speak to the drive in teller teamcenter consultant Follow up care is a shelton [...] MD - 01/16/2014 9:49 AM EDT [facility] Operative Note Patient Name: Gregory Fatima : [id number] MR#: [id number] Case Date: 01/16/2014 Surgeon: Surgeon(s) and Role: * Nohemi Swann MD - Primary Preoperative diagnosis: 5 yr surv. Full procedure note is documented under the Procedure section of eDH. documented in this encounter Plan of Treatment Upcoming Encounters Date Type Specialty Care Team Description 05/28/2022 Appointment Cardiology Zulma Dolan MD [facility] [address] [place], [place] [address] (Wo rk) 05/28/2022 Laboratory Appointment Lab 05/28/2022 Office Visit Cardiology Zulma Dolan MD [facility] [place] [address] Liz Poole PA [facility] [place] [address] 06/10/2022 Office Visit Dermatology Laura Scherer MD [facility] DR TEJA GR-DERMAT [place], [place] [address] (Wo rk) documented as of this encounter [...] Surgical Pathology Report (01/16/2014 9:53 AM EDT) [facility] Method Time Signature Surgical CERNER Pathology ? [facility][note 3] Report ? Provider: ?? NOHEMI SWANN ?Pt. Name: ?? MALICKEliseo RT, GREGORY E ? Acc #: ?[id number] ?Pt. MRN: ?[id number] ? Col Date: ?? 4 ? /Sex: [...] City/State/ZIP Code Phon e Number [place] [phone] RAKESH WALKER Specimen to [...] Organization Address City/State/[place] [address] [facility] Specimen to Pathology (surgical or derm) [...] City/[facility]/[place] [address] CERNER MILLENNIUM COLONOSCOPY (01/16/2014 7:25 AM EDT) [facility] gist Method Time Signature COLONOSCOPY [facility] PROVATION Endoscopy Patient Name: Gregory Fatima ? Procedure Date: 01/16/2014 7:25 AM ? N: [id number] ? Date of : 1945 ? Age: 68 ? Order #: [id number] ? Procedure: ? Colonoscopy Indications: ? High risk colon cancer surveillance : ? 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 dm on metformin with bs ~ 110 this ? am,s/p melanoma years ago, os a, ? goiter [facility]/p [facility] Providers: ? Nohemi Swann MD, Blanca [...] Laterality 01/16/2014 7:25 AM EDT Angela Sotelo DIRECTOR EDUCATION GENERAL SURGICAL ORDERABLES Performing Organization Address City/State/ZIP [...] Routine documented in this encounter Care Teams Electric Bath Attendant Relationship Specialty Start Date End Date Angela Sotelo APRN PCP - General 01/25/13 04/15/[address] [place] [address] documented as of this encounter
--- OUTSIDE RECORDS SUMMARY | 2022-04-13 08:18 | XMS_ITS | Encounter Summary ---
:1945 Author Organization [facility] [place] [address] Care Team Providers Name Role Phone Angela Holliday APRN Primary Care Provider Encounter Details Date Type Department Care Team Description 04/05/2013 Office Visit Urology at [facility] [place] [address] Social History Tobacco Use Types Packs/Day Years Used Date Former Smoker Alcohol Use Standard Drinks/Week Comments No 0 (1 standard drink = 0.6 oz pure alcoho l) Sex Assigned at Date Recorded Not on file documented as of this encounter Plan of Treatment Upcoming Encounters Date Type Specialty Care Team Description 05/28/2022 Appointment Cardiology Zulma Dolan MD [facility] [address] [place], [place] [address] (Wo rk) 05/28/2022 Laboratory Appointment Lab 05/28/2022 Office Visit Cardiology Zulma Dolan MD [facility] [place] [address] Liz Poole PA [facility] [place] [address] 06/10/2022 Office Visit Dermatology Laura Scherer MD [facility] DR [address]-DERMAT [place], [place] 0[address] (Wo rk) documented as of this encounter Visit Diagnoses Not on filedocumented in this encounter Care Teams Gas Engine Operator Generators Relationship Specialty Start Date End Date Angela Holliday APRN PCP - General 01/25/13 04/15/[address] [place] [place] [address] documented as of this encounter
--- OUTSIDE RECORDS SUMMARY | 2022-04-13 08:18 | XMS_ITS | Encounter Summary ---
:1945 Author Organization [facility] [place] [address] Care Team Providers Name Role Phone Adi Costello MD Primary Care Provider Reason for Visit Reason Comments Annual Exam ckeck his groin and melanoma follow-up Encounter Details Date Type Department Care Team Description 11/21/2010 Follow-Up Dermatology Arik Tipton Melanoma (Primary Dx) [facility] MD [place] [phone] DERMATOLOGY DEPT . [place] [phone] (Wo rk) Social History Tobacco Use Types [...] by his who is a state police officer booking. His only complaints are leg cramps, skin [...] Dolan MD [facility] [place], [place] [address] (Wo rk) 05/28/2022 Laboratory Appointment Lab 05/28/2022 Office Visit Cardiology Zulma Dolan MD [facility] [place] [address] [facility] [place] [address] 06/10/2022 Office Visit Dermatology Laura Scherer MD [facility] DR TEJA GR-DERMAT [place], [place] [address] (Wo rk) documented as of this encounter Visit Diagnoses Diagnosis Melanoma - Primary Melanoma of skin, site unspecified documented in this encounter Care Teams Direct Marketing Manager Relationship Specialty Start Date End Date Adi Costello MD PCP - General 06/17/10 09/21/11 [address] [place] [address] documented as of this encounter
--- OUTSIDE RECORDS SUMMARY | 2022-04-13 08:18 | XMS_ITS | Encounter Summary ---
:1945 Author Organization [facility] [place] [address] Care Team Providers Name Role Phone Angela Holliday APRN Primary Care Provider Reason for Visit Reason Comments Benign Prostatic Hypertrophy Encounter Details Date Type Department Care Team Description 11/28/2013 Follow-Up Urology at [facility] Blade Smith, Urinary retention (Primary D x); [facility] BPH (benign prostatic hyperplasia) [place] [address] UROLOGY DEPT [place], [place] [address] (Wo rk) Social History Tobacco [...] Zulma Dolan MD [facility] [address] [place], [place] [address] (Wo rk) 05/28/2022 Laboratory Appointment Lab 05/28/2022 Office Visit Cardiology Zulma Dolan MD [facility] [place] [address] Liz Poole PA [facility] [place] [address] 06/10/2022 Office Visit Dermatology Laura Scherer MD [facility] DR TEJA GR-DERMAT [place], [place] 0[address] (Wo rk) documented as of [...] Address City/State/[place] [address] CERNER MILLENNIUM documented in this encounter Visit Diagnoses Diagnosis Urinary retention - Primary Retention of urine, unspecified BPH (benign prostatic hyperplasia) Unspecified hyperplasia of prostate with out urinary obstruction and other lower urinary tract symptoms (LUTS) documented in this encounter Care Teams Molding Plasterer Relationship Specialty Start Date End Date Angela Holliday APRN PCP - General 01/25/13 04/15/[address] [place] [address] documented as of this encounter
--- OUTSIDE RECORDS SUMMARY | 2022-04-13 08:18 | XMS_ITS | Encounter Summary ---
:1945 Author Organization [facility] [place] [address] Care Team Providers Name Role Phone Unknown Primary Care Provider Unavailable Reason for Visit Reason Comments Other Encounter Details Date Type Department Care Team Description 10/05/2012 Telephone Dermatology at [facility] Rigoberto Garcia III, [address] [place] [address] [facility] [phone] TEJA MARIE-DERMAT [place] [address] (Wo rk) Social History Tobacco Use Types [...] Zulma Dolan MD [facility] [place], [place] 0[address] (Wo rk) 05/28/2022 Laboratory Appointment Lab 05/28/2022 Office Visit Cardiology Zulma Dolan MD [facility] [place] [address] Liz Poole PA [facility] [place] [address] 06/10/2022 Office Visit Dermatology Laura Scherer MD [facility] DR TEJA MARIE-DERMAT [place], [place] 0[address] (Wo rk) documented as of this encounter Visit Diagnoses Not on filedocumented in this encounter Care Teams Molding Machine Setter Relationship Specialty Start Date End Date Unknown PCP - General 10/04/12 01/24/13 None documented as of this encounter
--- OUTSIDE RECORDS SUMMARY | 2022-04-13 08:18 | XMS_ITS | Encounter Summary ---
:1945 Author Organization [facility] [place] [address] Care Team Providers Name Role Phone Angela Holliday STACIE Primary Care Provider Encounter Details Date Type Department Care Team Description 04/04/2013 Telephone Urology at [facility] Parker Sanchez MD [facility] [place] [address] UROLOGY DEPT [phone] [place], [place] 0[address] (Wo rk) Social History Tobacco [...] Dolan MD [facility] Dr [place], [place] [address] (Wo rk) 05/28/2022 Laboratory Appointment Lab 05/28/2022 Office Visit Cardiology Zulma Dolan MD [facility] [place] [address] Liz Poole PA [facility] [place] [address] 06/10/2022 Office Visit Dermatology Laura Scherer MD [facility] [address] TEJA GR-DERMAT [place], [place] 0[address] (Wo rk) documented as of this encounter Visit Diagnoses Not on filedocumented in this encounter Care Teams Research Support Specialist Relationship Specialty Start Date End Date Angela Holliday APRN PCP - General 01/25/13 04/15/[address] [place] [address] documented as of this encounter
--- OUTSIDE RECORDS SUMMARY | 2022-04-13 08:18 | XMS_ITS | Encounter Summary ---
:1945 [place] [address] Care Team Providers Name Role Phone MiyaLokeshAngela STACIE Primary Care Provider Encounter Details Date Type Department Care Team Description 03/28/2013 Anesthesia Event Main Operating Room Meredith Calvert MD [facility] [place] [address] [facility] Nolvia Riojas PA [facility] [place] [address] [place] [address] Anesthesia Record Procedure Summary Procedure Name [...] MD [facility] [place], [place] 0[address] (Wo rk) 05/28/2022 Laboratory Appointment Lab 05/28/2022 Office Visit Cardiology Zulma Dolan MD [facility] [place] [address] Liz Poole PA [facility] [place] [address] 06/10/2022 Office Visit Dermatology Laura Scherer MD [facility] DR TEJA GR-DERMAT [place], [place] 0[address] (Wo rk) documented as of [...] Routine documented in this encounter Care Teams Sand Control Worker Relationship Specialty Start Date End Date Angela Holliday APRN PCP - General 01/25/13 04/15/[address] [place] [address] documented as of this encounter
--- OUTSIDE RECORDS SUMMARY | 2022-04-13 08:18 | XMS_ITS | Encounter Summary ---
:1945 Author Organization [facility] [place] [address] Care Team Providers Name Role Phone Angela Sotelo APRN Primary Care Provider Encounter Details Date Type Department Care Team Description 01/16/2014 Surgery Gastroenterology at [facility] Nohemi Jaimes, COLONOSCOPY, [facility] Jorge mcnamara MD [place]YPE[place]OM[place], [place] [address] [facility] ([facility] [phone] DR Cintron) GASTROENTEROLOGY DEPT. [place], [place] 0[address] Social History Tobacco Use Types [...] documented in this encounter Discharge Instructions Discharge InstructionsCornia Pang RN - 01/16/2014 9:48 AM EDT [...] you need to be checked. [facility] [phone] 8a-5p Same Day Endo [phone] 7a-8p Otherwise contact [phone] and ask to speak to the offset pressman geospatial information technologist Follow up care is a shelton part [...] Operative Note Patient Name: Gregory Fatima : [id number] MR#: [id number] Case Date: 01/16/2014 Surgeon: Surgeon(s) and Role: * Nohemi Jaimes MD - Primary Preoperative diagnosis: 5 yr surv. Full procedure note is documented under the Procedure section of eDH. documented in this encounter Plan of Treatment Upcoming Encounters Date Type Specialty Care Team Description 05/28/2022 Appointment Cardiology Zulma Dolan MD [facility] [address] [place] [address] (Wo rk) 05/28/2022 Laboratory Appointment Lab 05/28/2022 Office Visit Cardiology Zulma Dolan MD [facility] [place] [address] Liz Poole PA [facility] [place] [address] 06/10/2022 Office Visit Dermatology Laura Scherer MD [facility] DR TEJA [place] [address] (Wo rk) documented as of this encounter [...] Surgical Pathology Report (01/16/2014 9:53 AM EDT) [facility] Method Time Signature Surgical CERNER Pathology ? [facility] Report ? Provider: ?? SHREE, NOHEMI Gonzalez ?Pt. Name: ?? MALICKA RT, GREGORY E ? Acc #: ?[id number] ?Pt. MRN: ?[id number] ? Col Date: ?? 4 ? /Sex: [...] Organization Address City/State/ZIP Code Phon e Number [place] [phone] LAB[address] RAKESH WALKER Specimen to [...] City/[facility]/[place] [address] CERNER MILLENNIUM Specimen to [...] PATHOLOGY/CYTOLOGY ORDERABLE S Performing Organization Address [facility] [place] [address] CERNER MILLENNIUM COLONOSCOPY (01/16/2014 7:25 AM EDT) [facility] gist Method Time Signature COLONOSCOPY [facility] PROVATION Endoscopy Patient Name: Gregory Fatima ? Procedure Date: 01/16/2014 7:25 AM ? N: [id number] ? Date of : 1945 ? Age: 68 ? Order #: [id number] ? Procedure: ? Colonoscopy Indications: ? High [...] Laterality 01/16/2014 7:25 AM EDT Angela Sotelo DATA ENTRY MACHINE OPERATOR GENERAL SURGICAL ORDERABLES Performing Organization Address City/State/ZIP [...] Routine documented in this encounter Care Teams Masonry Contractor Relationship Specialty Start Date End Date Angela Sotelo APRN PCP - General 01/25/13 04/15/[address] [place] [address] documented as of this encounter
--- OUTSIDE RECORDS SUMMARY | 2022-04-13 08:18 | XMS_ITS | Encounter Summary ---
:1945 Author Organization [facility] [place] [address] Care Team Providers Name Role Phone Brody Berrios MD Primary Care Provider Reason for Visit Reason Comments Annual Exam Encounter Details Date Type Department Care Team Description 09/22/2011 Follow-Up Dermatology Arik Tipton Psoriasis (Primary Dx); [facility] MD Jorge Personal history of other malignant neop lasm of skin Drive [place] [phone] DERMATOLOGY DEPT . 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 His only complaints tail bone and scalp [...] Dolan MD [facility] [address] [place], [place] [address] (Wo rk) 05/28/2022 Laboratory Appointment Lab 05/28/2022 Office Visit Cardiology Zulma Dolan MD [facility] [place] [address] Liz Poole PA [facility] [place] [address] 06/10/2022 Office Visit Dermatology Laura Scherer MD [facility] DR [address]-DERMAT [place], [place] 0[address] (Wo rk) documented as of this encounter Visit Diagnoses Diagnosis Psoriasis - Primary Other psoriasis Personal history of other malignant neop lasm of skin documented in this encounter Care Teams Station Operator Relationship Specialty Start Date End Date Brody Berrios MD PCP - General 09/22/11 10/03/[address] [place] [address] documented as of this encounter
--- OUTSIDE RECORDS SUMMARY | 2022-04-13 08:18 | XMS_ITS | Encounter Summary ---
:1945 Author Organization [facility] [place] [address] Care Team Providers Name Role Phone Angela Holliday APRN Primary Care Provider Reason for Referral Surgical (Routine) - Closed Specialty Diagnoses / Procedures Referred By Contact Refer red To Contact General Surgery Diagnoses Elijah Villagomez MD Colacchio, Thomas A, MD [address] [place] [address] [place] [id number] [place] [address] Phone: Fax: Referral ID Status Reason Start Date Expiration Date Visits V isits Requested Authorized [id number] Closed Specialty 01/25/2013 07/24/2013 1 1 Service Requested Reason for Visit Reason Comments Thyroid Problem Encounter Details Date Type Department Care Team Description 01/25/2013 Office Visit Endocrinology at [facility] Elijah Fuentes Goiter (Primary Dx) [facility] [address] [place] [address] [place] [id number] [phone] Social History Tobacco Use Types Packs/Day Years [...] 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 All [...] the thyroid gland were obtained using a SonBiondVaxaxx and an HFL38/13-6 broadband linear array transducer. [...] Cardiology Zulma Dolan MD [facility] [place], [place] 0[address] (Wo rk) 05/28/2022 Laboratory Appointment Lab 05/28/2022 Office Visit Cardiology Zulma Dolan MD [facility] [place] [id number] Liz Poole PA [facility] [place] [address] 06/10/2022 Office Visit Dermatology Laura Scherer MD [facility] [address] TEJA GR-DERMAT [place], [place] [address] (Wo rk) Scheduled Referrals Name [...] Organization Address City/State/[place] [address] CERNER MILLENNIUM documented in this encounter Visit Diagnoses Diagnosis Goiter - Primary Goiter, unspecified documented in this encounter Care Teams Catering Driver Relationship Specialty Start Date End Date Angela Holliday APRN PCP - General 01/25/13 04/15/[address] [place] [address] documented as of this encounter
--- OUTSIDE RECORDS SUMMARY | 2022-04-13 08:18 | XMS_ITS | Encounter Summary ---
:1945 Author Organization [facility] [place] [address] Care Team Providers Name Role Phone Angela Holliday APRN Primary Care Provider Encounter Details Date Type Department Care Team Description 03/30/2013 Telephone General [facility] Cliff Nevarez, [place] [address] Social History Tobacco Use Types Packs/Day [...] Zulma Dolan MD [facility] er [place], [place] 0[address] (Wo rk) 05/28/2022 Laboratory Appointment Lab 05/28/2022 Office Visit Cardiology Zulma Dolan MD [facility] [place] [address] Liz Poole PA [facility] [place] [address] 06/10/2022 Office Visit Dermatology Laura Scherer MD [facility] DR TEJA GR-DERMAT [place], [place] [address] (Wo rk) documented as of this encounter Visit Diagnoses Not on filedocumented in this encounter Care Teams Boiler Assistant Operator Relationship Specialty Start Date End Date Angela Holliday APRN PCP - General 01/25/13 04/15/[address] [place] [address] documented as of this encounter
--- OUTSIDE RECORDS SUMMARY | 2022-04-13 08:18 | XMS_ITS | Encounter Summary ---
:1945 Author Organization [facility] [place] [address] Care Team Providers Name Role Phone Angela Holliday APRN Primary Care Provider Reason for Visit Reason Onset Date Comments Other 03/30/2013 blood in catheter ba g Encounter Details Date Type Department Care Team Description 03/30/2013 Telephone General Surgery at [facility] Janneth Sharma, Other (blood in [facility] RN catheter bag) [place] [address] Social History Tobacco Use Types Packs/Day [...] Zulma Dolan MD [facility] [place], [place] [address] (Wo rk) 05/28/2022 Laboratory Appointment Lab 05/28/2022 Office Visit Cardiology Zulma Dolan MD [facility] [place] [address] Liz Poole PA [facility] [place] [address] 06/10/2022 Office Visit Dermatology Laura Scherer MD [facility] DR TEJA GR-DERMAT [place], [place] [address] (Wo rk) documented as of this encounter Visit Diagnoses Not on filedocumented in this encounter Care Teams Professor Of Exercise Science Relationship Specialty Start Date End Date Angela Holliday APRN PCP - General 01/25/13 04/15/[address] [place] [address] documented as of this encounter
--- OUTSIDE RECORDS SUMMARY | 2022-04-13 08:18 | XMS_ITS | Encounter Summary ---
:1945 Author Organization [facility] [place] [address] Care Team Providers Name Role Phone MiyaAngela STACIE Primary Care Provider Encounter Details Date Type Department Care Team Description 11/27/2013 Orders Only Urology at [facility] Blade Smith, Urinary retention [facility] (Primary Dx) [place] [address] UROLOGY DEPT [place], [place] [address] Social History Tobacco Use [...] MD [facility] er [place], [place] [address] (Wo rk) 05/28/2022 Laboratory Appointment Lab 05/28/2022 Office Visit Cardiology Zulma Dolan MD [facility] [place] [address] Liz Poole PA [facility] [place] [address] 06/10/2022 Office Visit Dermatology Laura Scherer MD [facility] ER DR TEJA GR-DERMAT [place], [place] [address] [...] Address City/State/[place] [address] CERNER MILLENNIUM documented in this encounter Visit Diagnoses Diagnosis Urinary retention - Primary Retention of urine, unspecified documented in this encounter Care Teams Kettle Room Helper Relationship Specialty Start Date End Date Angela Holliday APRN PCP - General 01/25/13 04/15/[address] [place] [address] documented as of this encounter
--- OUTSIDE RECORDS SUMMARY | 2022-04-13 08:18 | XMS_ITS | Encounter Summary ---
:1945 [place] [address] Care Team Providers Name Role Phone Holley Hollidayica STACIE Primary Care Provider Encounter Details Date Type Department Care Team Description 03/28/2013 - [facility]29[facility]2013 Barbara Gomes MD Dx) [facility] DR Siddiqu[place] [id number] [phone] Social History Tobacco Use Types Packs/Day Years [...] please call the General Surgery nurse at [phone], since this may mean that you need morecalcium. Follow-up Appointment: Will be scheduled with Dr. Mcknight in 6 weeks Date and time as well as any required labs will be mailed to you Please call [phone] to confirm date and time of your [...] by calcium supplementation. Phone number for questions: [phone] before 5 PM weekdays [phone] after 5 PM and on weekends/holidays Please [...] Willams MD - 03/28/2013 3:43 PM EDT [facility] Operative Note Patient Name: Gregory Fatima : [id number] MR#: [id number] Case Date: 03/28/2013 Surgeon: Surgeon(s) and Role: [...] Operative Note Patient Name: Gregory Fatima : [id number] MR#: [id number] Case Date: 03/28/2013 Surgeon: Surgeon(s) and Role: [...] MD [facility] er Dr Reeder [place] 0[address] (Wo rk) 05/28/2022 Laboratory Appointment Lab 05/28/2022 Office Visit Cardiology Zulma Dolan MD [facility] [place] [address] Liz Poole PA [facility] [place] [address] 06/10/2022 Office Visit Dermatology Laura Scherer MD [facility] ER DR TEJA GR-DERMAT [place] [address] (Wo rk) documented as of this encounter [...] City/State/[place] [address] CERNER MILLENNIUM (ABNORMAL) POCT [...] CARE TEST ORDERABLE S Performing Organization Address City/[facility]/ZIP [place] [address] CERNER MILLENNIUM (ABNORMAL) POCT [...] CARE TEST ORDERABLE S Performing Organization Address City/[facility]/ZIP Code Phon e Number [address] CERNER MILLENNIUM (ABNORMAL) POCT [...] CARE TEST ORDERABLE S Performing Organization Address City/[facility]/ZIP Code Phon e Number [address] CERNER MILLENNIUM (ABNORMAL) POCT [...] CARE TEST ORDERABLE S Performing Organization Address City/[facility]/ZIP Code Phon e Number [address] CERNER MILLENNIUM (ABNORMAL) POCT [...] CARE TEST ORDERABLE S Performing Organization Address City/[facility]/ZIP Code Phon e Number [address] CERNER MILLENNIUM (ABNORMAL) POCT [...] CARE TEST ORDERABLE S Performing Organization Address City/[facility]/ZIP Code Phon e Number [address] CERNER MILLENNIUM (ABNORMAL) POCT [...] CARE TEST ORDERABLE S Performing Organization Address City/[facility]/ZIP Code Phon e Number [address] [facility] Specimen to Pathology [...] City/[facility]/ZIP Code Phon e Number [address] [facility] Pathology Addendum Report (03/28/2013 12:03 PM EDT) Component Value Ref Test Analysis Performed At [facility] gist Range Method Time Signature Addendum CERNER Report ? [facility] ? Provider: ?? MESHA MCKNIGHT Pt. Name: ?? GREGORY FATIMA ? Acc #: ?[id number] ?Pt. MRN: ?[id number] ? Col Date: ?? 03/28/2013 ?/Sex: ?1945,(68 [...] Address City/State/Z[place] [address] [facility] Surgical Pathology Report (03/28/2013 12:03 PM EDT) Component Value Ref Test Analysis Performed At [facility] gist Range Method Time Signature Surgical [facility] Pathology ? [facility] Report ? Provider: ?? MESHA MCKNIGHT Pt. Name: ?? GREGORY FATIMA ? Acc #: ?[id number] ?Pt. MRN: ?[id number] ? Col Date: ?? 03/28/2013 ?/Sex: ?1945,(68 [...] hemorrhage and ? calcifications. ? [facility] ? Provider: ?? MESHA MCKNIGHT Pt. Name: ?? GREGORY FATIMA ? Acc #: ?[id number] ?Pt. MRN: ?[id number] ? Col Date: ?? 03/28/2013 ?/Sex: ?1945,(68 years),Male ? Rec Date: ?? 03/28/2013 ?LOC: ?[facility] ? SURGICAL PATHOLOGY ? SECTIONS/PROCESSING: Street Light Repairer sections are subm itted. (R6) ? [...] Address City/State/[place] [address] CERNER MILLENNIUM Frozen Section Report (03/28/2013 12:03 PM EDT) Component Value Ref Test Analysis Performed At [facility] gist Range Method Time Signature Frozen CERNER Section ? [facility] Report ? Provider: ?? MESHA MCKNIGHT Pt. Name: ?? GREGORY FATIMA ? Acc #: ?[id number] ?Pt. MRN: ?[id number] ? Col Date: ?? 03/28/2013 ?/Sex: ?1945,(68 [...] City/[facility]/[place] [address] CERNER MILLENNIUM POCT Glucose [...] CARE TEST ORDERABLE S Performing Organization Address City/[facility]/ZIP Code Phon e Number [address] CERNER MILLENNIUM Specimen to [...] City/[facility]/ZIP [place] [address] CERNER MILLENNIUM Antibody screen (03/28/2013 9:37 AM EDT) Analysis Performed At Patho logist Time Signature Ab Screen Negative CERNER Interp MILLENNIUM Expires at [id number] CERNER 988 on: MILLENNIUM Specimen Anatomical Collection Method Collection Time Receive d Time (Source) Location / / Volume Laterality Blood specimen 03/28/2013 9:37 AM 013 9:37 (specimen) EDT AM EDT Resulting Agency Comment Spec In Lab Mesha Mcknight MD BLOOD BANK ORDERABLES Performing Organization Address City/[facility]/Z[place] [address] [facility] ABO/Rh Typing (03/28/2013 9:37 AM EDT) athologist Signature ABORh Type O Pos [facility] Specimen Anatomical Collection Method Collection Time Receive d Time (Source) Location / / Volume Laterality Blood specimen 03/28/2013 9:37 AM 013 9:37 (specimen) EDT AM EDT Resulting Agency Comment Spec In Lab Mesha Mcknight MD BLOOD BANK ORDERABLES Performing Organization Address City/[facility]/ZIP Code Phon e Number [address] [facility] Differential, Automated (03/28/2013 9:34 AM EDT) athologist [...] City/State/ZIP Code Phon e Number [place] [id number]OSPITAL [address] CERNER MILLENNIUM (ABNORMAL) Basic [...] intervals supplied above were not validated at [facility]. Results from pediatri c patients [...] Address City/State/[place] [address] CERNER MILLENNIUM (ABNORMAL) CBC [...] MPV 9.3 9.0 - 12.0 CERNER fL [facility] Specimen Anatomical Collection Method Collection Time Receive d Time (Source) Location / / Volume Laterality Blood specimen 03/28/2013 9:34 AM 013 9:38 (specimen) EDT AM EDT Resulting Agency Comment Spec In Lab Mesha Mcknight MD HEMATOLOGY ORDERABLES Performing Organization Address City/[facility]/ZIP Code Phon e Number [address] [facility] POCT Glucose (03/28/2013 9:17 AM EDT) athologist [...] CARE TEST ORDERABLE S Performing Organization Address City/[facility]/ZIP Code Phon e Number [address] [facility] Specimen to Pathology (surgical or derm) (03/28/2013 8:55 AM EDT) Specimen Anatomical Collection Method Collection Time Receive d Time (Source) Location / / Volume Laterality AP Specimen 03/28/2013 8:55 AM 3 8:54 EDT AM EDT Narrative [facility] - 03/28/2013 8:55 AM E DT Specimen requisition ordered. ??Separate Pathology report to follow Mesha Mcknight MD PATHOLOGY/CYTOLOGY ORDERABLE S Performing Organization Address City/[facility]/ZIP Code Phon e Number [address] [facility] documented in this encounter Visit Diagnoses Diagnosis [...] 0900 (Given - Provider: Radha Yao [facility], RN) 2.5 mg, Oral, DAILY, First dose on Wed03/28/13 at 1530, Until Dis continued ceFAZolin (ANCEF) 2g in dextrose 5% 50 mL (CANCELED) 09 (Not Given - Provider: Cami Baxter RN - Reason: See comment - Comment: scheduled for 18:00)1027 (Given - Provider: Tessa Rice)1200 (Not Given - Provider: Cami aBxter RN - Reason: See comment - Comment: [...] override documented in this encounter Care Teams Inspector Machine Cut Glass Relationship Specialty Start Date End Date Angela Holliday APRN PCP - General 01/25/13 04/15/15 [address] [place] [address] documented as of this encounter
--- OUTSIDE RECORDS SUMMARY | 2022-04-13 08:18 | XMS_ITS | Encounter Summary ---
:1945 Author Organization [facility] [place] [address] Care Team Providers Name Role Phone Angela Holliday APRN Primary Care Provider Encounter Details Date Type Department Care Team Description 01/25/2013 Clinical [place] [address] Social History Tobacco Use Types Packs/Day [...] Dolan MD [facility] Dr [place], [place] [address] (Wo rk) 05/28/2022 Laboratory Appointment Lab 05/28/2022 Office Visit Cardiology Zulma Dolan [place] [facility] [address] Liz Poole PA [facility] [place] [address] 06/10/2022 Office Visit Dermatology Laura Scherer MD [facility] DR TEJA GR-DERMAT [place], [place] [address] (Wo rk) documented as of this encounter Visit Diagnoses Not on filedocumented in this encounter Care Teams Alum Mixer Relationship Specialty Start Date End Date Angela Holliday APRN PCP - General 01/25/13 04/15/[address] [place] [address] documented as of this encounter
--- OUTSIDE RECORDS SUMMARY | 2022-04-13 08:18 | XMS_ITS | Encounter Summary ---
:1945 Author Organization [facility] [place] [address] Care Team Providers Name Role Phone MiyaLokeshAngela STACIE Primary Care Provider Encounter Details Date Type Department Care Team Description 04/04/2013 Orders Only General Surgery at Manny Mcknight thyroid [facility] MD Eliseo carcinoma (Primary Dx) [facility] [place] [address] GENERAL SURGERY [phone] [place], [place] [address] Social History Tobacco Use Types [...] MD [facility] er [place], [place] [address] (Wo rk) 05/28/2022 Laboratory Appointment Lab 05/28/2022 Office Visit Cardiology Zulma Dolan MD [facility] [place] [address] Liz Poole PA [facility] [place] [address] 06/10/2022 Office Visit Dermatology Laura Scherer MD [facility] [address] TEJA GR-DERMAT [place], [place] [address] (Wo rk) documented as of this encounter Visit Diagnoses Diagnosis Papillary thyroid carcinoma - Primary Malignant neoplasm of thyroid gland documented in this encounter Care Teams Instructor Adjunct Surgical Technician Relationship Specialty Start Date End Date Angela Holliday APRN PCP - General 01/25/13 04/15/[address] [place] [address] documented as of this encounter
--- OUTSIDE RECORDS SUMMARY | 2022-04-13 08:18 | XMS_ITS | Encounter Summary ---
:1945 Author Organization [place] [address] Care Team Providers Name Role Phone Angela Holliday APRN Primary Care Provider Encounter Details Date Type Department Care Team Description 03/28/2013 Surgery Main Operating Room Mesha Mcknight, THYROIDECTOMY, [facility] DR Siddiqui [place] [address] [place] [address] [phone] (Wo rk) Social History Tobacco Use Types [...] the General Surgery nurse at [phone], since this may mean that you need morecalcium. Follow-up Appointment: Will be scheduled with Dr. Mcknight in 6 weeks Date and time as well as any required labs will be mailed to you Please call [phone] to confirm date and time of your [...] by calcium supplementation. Phone number for questions: [phone] before 5 PM weekdays [phone] after 5 PM and on weekends/holidays Please [...] is a 68 y.o. male presents to [facility] today for total thyroidectomy. See [...] MD - 03/28/2013 3:43 PM EDT [facility] Operative Note Patient Name: Gregory Fatima : [id number] MR#: [id number] Case Date: 03/28/2013 Surgeon: Surgeon(s) and Role: [...] patient was extubated and taken to the [facility] in stable condition. At the [...] Operative Note Patient Name: Gregory Fatima : [id number] MR#: [id number] Case Date: 03/28/2013 Surgeon: Surgeon(s) and Role: [...] MD [facility] [address] [address] Liz Poole PA [facility] [place] [address] 06/10/2022 Office Visit Dermatology Laura Scherer MD [facility] ER DR TEJA GR-DERMAT [place] [address] (Wo rk) documented as of this encounter [...] Organization Address City/State/[place] [address] CERNER MILLENNIUM (ABNORMAL) POCT [...] City/[facility]/[place] [address] CERNER MILLENNIUM (ABNORMAL) POCT [...] City/[facility]/ZIP Code Phon e Number [address] CERNER MILLENNIUM (ABNORMAL) POCT [...] City/[facility]/ZIP Code Phon e Number [address] CERNER MILLENNIUM (ABNORMAL) POCT [...] City/[facility]/ZIP Code Phon e Number [address] CERNER MILLENNIUM (ABNORMAL) POCT [...] City/[facility]/ZIP Code Phon e Number [address] CERNER MILLENNIUM (ABNORMAL) POCT [...] City/[facility]/ZIP Code Phon e Number [address] CERNER MILLENNIUM (ABNORMAL) POCT [...] City/[facility]/ZIP Code Phon e Number [address] [facility] Specimen to Pathology (surgical or derm) [...] City/[facility]/ZIP Code Phon e Number [address] [facility] Pathology Addendum Report (03/28/2013 12:03 PM EDT) Component Value Ref Test Analysis Performed At [facility] gist Range Method Time Signature Addendum CERNER Report ? [facility] ? Provider: ?? MESHA MCKNIGHT Pt. Name: ?? GREGORY FATIMA ? Acc #: ?[id number] ?Pt. MRN: ?[id number] ? Col Date: ?? 03/28/2013 ?/Sex: ?1945,(68 [...] Organization Address City/State/[place] [address] [facility] Surgical Pathology Report (03/28/2013 12:03 PM EDT) Component Value Ref Test Analysis Performed At [facility] gist Range Method Time Signature Surgical [facility] Pathology ? [facility] Report ? Provider: ?? MESHA MCKNIGHT Pt. Name: ?? GREGORY FATIMA ? Acc #: ?[id number] ?Pt. MRN: ?[id number] ? Col Date: ?? 03/28/2013 ?/Sex: ?1945,(68 [...] areas of hemorrhage and ? calcifications. ? [facility] ? Provider: ?? MESHA MCKNIGHT Pt. Name: ?? GREGORY FATIMA ? Acc #: ?[id number] ?Pt. MRN: ?[id number] ? Col Date: ?? 03/28/2013 ?/Sex: ?1945,(68 years),Male ? Rec Date: ?? 03/28/2013 ?LOC: ?[facility] ? SURGICAL PATHOLOGY ? SECTIONS/PROCESSING: Deputy Probation Officer sections are subm itted. (R6) ? B [...] Organization Address City/State/[place] [address] CERNER MILLENNIUM Frozen Section Report (03/28/2013 12:03 PM EDT) Component Value Ref Test Analysis Performed At [facility] gist Range Method Time Signature Frozen CERNER Section ? [facility] Report ? Provider: ?? MESHA MCKNIGHT Pt. Name: ?? GREGORY FATIMA ? Acc #: ?[id number] ?Pt. MRN: ?[id number] ? Col Date: ?? 03/28/2013 ?/Sex: ?1945,(68 [...] City/[facility]/[place] [address] CERNER MILLENNIUM POCT Glucose [...] City/[facility]/ZIP Code Phon e Number [address] CERNER MILLENNIUM Specimen to [...] City/[facility]/[place] [address] CERNER MILLENNIUM Antibody screen (03/28/2013 9:37 AM EDT) Analysis Performed At Patho logist Time Signature Ab Screen Negative CERNER Interp MILLENNIUM Expires at [id number] CERNER 272 on: MILLENNIUM Specimen Anatomical Collection Method Collection Time Receive d Time (Source) Location / / Volume Laterality Blood specimen 03/28/2013 9:37 AM 013 9:37 (specimen) EDT AM EDT Resulting Agency Comment Spec In Lab Mesha Mcknight MD BLOOD BANK ORDERABLES Performing Organization Address City/[facility]/[place] [address] [facility] [...] City/[facility]/ZIP Code Phon e Number [address] [facility] Differential, Automated (03/28/2013 [...] Organization Address City/State/ZIP Code Phon e Number [place] [id number]OSPITAL [address] CERNER MILLENNIUM (ABNORMAL) Basic [...] supplied above were not validated at [facility]. Results from pediatri c patients should be [...] Organization Address City/State/[place] [address] CERNER MILLENNIUM (ABNORMAL) CBC [...] MPV 9.3 9.0 - 12.0 CERNER fL [facility] Specimen Anatomical Collection Method Collection Time Receive d Time (Source) Location / / Volume Laterality Blood specimen 03/28/2013 9:34 AM 013 9:38 (specimen) EDT AM EDT Resulting Agency Comment Spec In Lab Mesha Mcknight MD HEMATOLOGY ORDERABLES Performing Organization Address City/[facility]/ZIP Code Phon e Number [address] [facility] POCT Glucose (03/28/2013 9:17 AM EDT) athologist Signature POC Glucose 108 60 - 199 CERNER mg/dL [facility] Comment: Supplemental ranges: <110 mg/dL before meals <200 mg/dL all other times of the day Specimen Anatomical Collection Method Collection Time Receive d Time (Source) Location / / Volume Laterality Blood specimen 03/28/2013 9:17 AM 013 9:17 (specimen) EDT AM EDT Mesha Mcknight MD POINT OF CARE TEST ORDERABLE S Performing Organization Address City/[facility]/ZIP Code Phon e Number [address] [facility] Specimen to Pathology (surgical or derm) (03/28/2013 8:55 AM EDT) Specimen Anatomical Collection Method Collection Time Receive d Time (Source) Location / / Volume Laterality AP Specimen 03/28/2013 8:55 AM 3 8:54 EDT AM EDT Narrative [facility] GRISELDAENNIUM - 03/28/2013 8:55 AM E DT Specimen requisition ordered. ??Separate Pathology report to follow Mesha Mcknight MD PATHOLOGY/CYTOLOGY ORDERABLE S Performing Organization Address City/[facility]/ZIP Code Phon e Number [address] RAKESH WALKER documented in [...] override documented in this encounter Care Teams Carbonator Relationship Specialty Start Date End Date Angela Holliday APRN PCP - General 01/25/13 04/15/15 [address] [place] [address] documented as of this encounter
--- OUTSIDE RECORDS SUMMARY | 2022-04-13 08:18 | XMS_ITS | Encounter Summary ---
:1945 Author Organization [facility] Address [facility] [place] [address] Care Team Providers Name Role Phone Unknown Primary Care Provider Unavailable Reason for Visit Reason Comments Skin Check Encounter Details Date Type Department Care Team Description 10/04/2012 Follow-Up Dermatology at [facility]to Forman soriasis (Primary Dx); Abdelrahman HOOPER MD Neoplasm of unspecified nature of bone, soft tissue, and skin; [address] [facility] Skin lesion of chest wall; [place] [address] Seborrheic psoriasis- scalp and ingtergl uteal area [phone] [facility] [place], [place] [address] (Wo rk) Social [...] Albarran MD Section of Dermatology [facility] documented in this encounter Plan of Treatment Upcoming Encounters Date Type Specialty Care Team Description 05/28/2022 Appointment Cardiology Zulma Dolan MD [facility] [address] [place] [address] (Wo rk) 05/28/2022 Laboratory Appointment Lab 05/28/2022 Office Visit Cardiology Zulma Dolan MD [facility] [place] [address] [facility] [place] [address] 06/10/2022 Office Visit Dermatology Laura Scherer MD [facility] DR TEAJ GR-DERMAT [place], [place] [address] (Wo rk) [...] Component Value Ref Test Analysis Performed At [facility] gist Range Method Time Signature Surgical CERNER Pathology ? [facility] Report ? Provider: ?? RIGOBERTO ALBARRAN III Pt. Name: ?? DON HOANG ?A ? Acc #: ?[id number] ? Pt. ? Col Date: ?? 3 [...] [facility]/ZIP Code Phon e Number [address] [facility] Specimen to Pathology (NON-OR) (10/04/2012 9:55 AM EDT) Specimen Anatomical Collection Method Collection Time Receive d Time (Source) Location / / Volume Laterality AP Specimen 10/04/2012 9:55 AM 201 3 9:56 EDT AM EDT [facility]ative [facility] 10/04/2012 9:56 AM E DT Specimen requisition ordered. ??Separate Pathology report to follow Rigoberto Albarran III, MD PATHOLOGY/CYTOLOGY ORDERABLE S Performing Organization Address City/[facility]/ZIP Code Phon e Number [address] [facility] documented in this encounter Visit Diagnoses Diagnosis Psoriasis - Primary Other psoriasis Neoplasm of unspecified nature of bone, soft tissue, and skin Skin lesion of chest wall Unspecified disorder of skin and subcuta neous tissue Seborrheic psoriasis- scalp and ingtergl uteal area Other psoriasis documented in this encounter Care Teams Airplane Electrical Repairer Relationship Specialty Start Date End Date Unknown PCP - General 10/04/12 01/24/13 None documented as of this encounter
--- OUTSIDE RECORDS SUMMARY | 2022-04-13 08:18 | XMS_ITS | Encounter Summary ---
:1945 Author Organization [facility] [place] [address] Care Team Providers Name Role Phone Angela Holliday APRN Primary Care Provider Encounter Details Date Type Department Care Team Description 03/30/2013 Telephone General Surgery at [facility] Cliff Nevarez, [place] [address] Social History Tobacco Use Types Packs/Day [...] Zulma Dolan MD [facility] [address] [place], [place] [address] (Wo rk) 05/28/2022 Laboratory Appointment Lab 05/28/2022 Office Visit Cardiology Zulma Dolan MD [facility] [place] [address] Lzi Poole PA [facility] [place] [address] 06/10/2022 Office Visit Dermatology Laura Scherer MD [facility] DR TEJA GR-DERMAT [place], [place] [address] (Wo rk) documented as of this encounter Visit Diagnoses Not on filedocumented in this encounter Care Teams Instructor Programmable Controllers Relationship Specialty Start Date End Date Angela Holliday APRN PCP - General 01/25/13 04/15/[address] [place] [address] documented as of this encounter
--- OUTSIDE RECORDS SUMMARY | 2022-04-13 08:18 | XMS_ITS | Encounter Summary ---
:1945 Author Organization [facility] [place] [address] Care Team Providers Name Role Phone Miya Angela STACIE Primary Care Provider Encounter Details Date Type Department Care Team Description 04/24/2013 Telephone Urology at [facility] Zhen Bowman MD [facility] [place] [address] UROLOGY DEPT [phone] [place], [place] [address] (Wo rk) Social History Tobacco [...] Zulma Dolan MD [facility] [place], [place] [address] (Wo rk) 05/28/2022 Laboratory Appointment Lab 05/28/2022 Office Visit Cardiology Zulma Dolan MD [facility] [place] [address] Liz Poole PA [facility] [place] [address] 06/10/2022 Office Visit Dermatology Laura Scherer MD [facility] DR TEJA GR-DERMAT [place], [place] [address] (Wo rk) documented as of this encounter Visit Diagnoses Not on filedocumented in this encounter Care Teams Debt Collector Relationship Specialty Start Date End Date Angela Holliday APRN PCP - General 01/25/13 04/15/[address] [place] [address] documented as of this encounter
--- OUTSIDE RECORDS SUMMARY | 2022-04-13 08:18 | XMS_ITS | Encounter Summary ---
:1945 Author Organization [facility] [place] [address] Care Team Providers Name Role Phone MiyaAngela STACIE Primary Care Provider Reason for Visit Reason Onset Date Comments Advice Only 03/31/2013 Encounter Details Date Type Department Care Team Description 03/31/2013 Telephone Urology at [facility] Daniele Trejo III, MD Advice Only [facility] [place] [address] [place] [id number] [phone] (Wo rk) Social History Tobacco Use Types [...] Dolan MD [facility] [place], [place] [address] (Wo rk) 05/28/2022 Laboratory Appointment Lab 05/28/2022 Office Visit Cardiology Zulma Dolan MD [facility] [place] [address] Liz Poole PA [facility] [place] [address] 06/10/2022 Office Visit Dermatology Laura Scherer MD [facility] DR TEJA GR-DERMAT [place], [place] [address] (Wo rk) documented as of this encounter Visit Diagnoses Not on filedocumented in this encounter Care Teams Rail Car Maintenance Mechanic Relationship Specialty Start Date End Date Angela Holliday APRN PCP - General 01/25/13 04/15/[address] [place] [address] documented as of this encounter
--- OUTSIDE RECORDS SUMMARY | 2022-04-13 08:18 | XMS_ITS | Encounter Summary ---
:1945 Author Organization [facility] [place] [address] Care Team Providers Name Role Phone MiyaLokeshAngela STACIE Primary Care Provider Reason for Visit Reason Onset Date Comments Post-op Problem 04/05/2013 voiding trial Encounter Details Date Type Department Care Team Description 04/05/2013 Telephone Urology at [facility] Blade Smith, Post-op Problem [facility] (voiding trial) [place] [address] UROLOGY DEPT [place] [phone] (Wo rk) Social History Tobacco Use Types [...] Zulma Dolan MD [facility] [address] [place], [place] [address] (Wo rk) 05/28/2022 Laboratory Appointment Lab 05/28/2022 Office Visit Cardiology Zulma Dolan MD [facility] [place] [address] Liz Poole PA [facility] [place] [address] 06/10/2022 Office Visit Dermatology Laura Scherer MD [facility] DR TEJA GR-DERMAT [place], [place] [address] (Wo rk) documented as of this encounter Visit Diagnoses Not on filedocumented in this encounter Care Teams Central Supply Worker Relationship Specialty Start Date End Date Angela Holliday APRN PCP - General 01/25/13 04/15/[address] [place] [address] documented as of this encounter
--- OUTSIDE RECORDS SUMMARY | 2022-04-13 08:18 | XMS_ITS | Encounter Summary ---
:1945 Author Organization [facility] [place] [address] Care Team Providers Name Role Phone Angela Holliday APRN Primary Care Provider Reason for Visit Reason Comments Skin Check Encounter Details Date Type Department Care Team Description 07/31/2013 Follow-Up Dermatology at [facility] eoplasm of unspecified nature of bone, soft tissue, and skin (Primary Dx); Abdelrahman HOOPER MD Seborrheic psoriasis- scalp and ingtergl uteal area; [address] [facility] Atypical nev[place] [address] [facility] [place], [place] [address] (Wo rk) Social History Tobacco [...] encounter. Rigoberto Albarran MD Section of Dermatology [facility] documented in this encounter Plan of Treatment Upcoming Encounters Date Type Specialty Care Team Description 05/28/2022 Appointment Cardiology Zulma Dolan MD [facility] [address] [place] [address] (Wo lissa) 05/28/2022 Laboratory Appointment Lab 05/28/2022 Office Visit Cardiology Zulma Dolan MD [facility] [place] [address] Liz Poole PA [facility] [place] [address] 06/10/2022 Office Visit Dermatology Laura Scherer MD [facility] DR TEJA GR-DERMAT [place], [place] [address] (Wo rk) Scheduled Orders Name [...] Ref Test Analysis Performed At [facility] gist Range Method Time Signature Surgical CERNER Pathology ? [facility] Report ? Provider: ?? RIGOBERTO ALBARRAN III Pt. Name: ?? GREGORY HOANG ?A ? Acc #: ?[id number] ? Pt. ? Col Date: ?? 07/31/2013 [...] 0.9 x 0.8 x 0.2 cm. ? [facility] ? Provider: ?? DEION III, RIGOBERTO Pt. Name: ?? GREGORY HOANG ?A ? Acc #: ?[id number] ? Pt. ? Col Date: ?? 07/31/2013 [...] S Performing Organization Address City/[facility]/ZIP Code Phon e Number [address] [facility] Specimen to [...] S Performing Organization Address City/[facility]/[place] [address] [facility] documented in this encounter Visit Diagnoses Diagnosis Neoplasm of unspecified nature of bone, soft tissue, and skin - Primary Seborrheic psoriasis- scalp and ingtergl uteal area Other psoriasis Atypical nevus of abdominal wall Benign neoplasm of skin of trunk, except scrotum documented in this encounter Care Teams Relationship Banker Relationship Specialty Start Date End Date Angela Holliday APRN PCP - General 01/25/13 04/15/[address] [place] [address] documented as of this encounter
--- OUTSIDE RECORDS SUMMARY | 2022-04-13 08:18 | XMS_ITS | Encounter Summary ---
:1945 Author Organization [employer] [place] [address] Care Team Providers Name Role Phone NeilSom conner STACIE Primary Care Provider Reason for Visit Reason Comments Establish Care OBST GOITER Encounter Details Date Type Department Care Team Description 01/25/2013 Office Visit General Surgery at Manny Mcknight er colloid, toxic, [facility] MD Eliseo nodular (Primary Dx) [facility] [place] GENERAL SURGERY [address] [place], [place] [id number] [phone] Social History Tobacco Use Types Packs/Day Years [...] the thyroid gland were obtained using a SonoSiGecko MicroMaxx and an HFL38/13-6 broadband linear array [...] on physical exam. ROS: No H/O asthma, VA, stroke, pulmonary embolus or phlebitis. Comprehensive review [...] agrees to proceed. Will sign in through [facility]. Consent is signed. Send copy to Dr. SOM HOLLIDAY APRN and Elijah Elias MD. documented in this encounter Plan of Treatment Upcoming Encounters Date Type Specialty Care Team Description 05/28/2022 Appointment Cardiology Zulma Dolan MD [facility] [address] [place] [address] (Wo rk) 05/28/2022 Laboratory Appointment Lab 05/28/2022 Office Visit Cardiology Zulma Dolan MD [facility] [place] [address] Liz Poole PA [facility] [place] [address] 06/10/2022 Office Visit Dermatology Laura Scherer MD [facility] [address] TEJA GR-DERMAT [place], [place] [address] (Wo rk) documented as of [...] 406 ms MUSE SYSTEM (Bezet) Calculated P Rector 52 degrees MUSE SYSTEM Calculated R Rector 0 degrees MUSE SYSTEM Calculated T Rector 40 degrees MUSE SYSTEM INTERPRETATION Normal sinus [...] storm documented in this encounter Care Teams Accident Investigator Relationship Specialty Start Date End Date Som Holliday APRN PCP - General 01/25/13 04/15/[address] [place] [address] documented as of this encounter
--- OUTSIDE RECORDS SUMMARY | 2022-04-13 08:18 | XMS_ITS | Encounter Summary ---
:1945 Author Organization [facility] [place] [address] Care Team Providers Name Role Phone Angela Holliday APRN Primary Care Provider Encounter Details Date Type Department Care Team Description 03/15/2013 Telephone General Surgery at [facility] [place]ison Key, [place] [address] Social History Tobacco Use Types Packs/Day [...] Zulma Dolan MD [facility] [place], [place] [address] (Wo rk) 05/28/2022 Laboratory Appointment Lab 05/28/2022 Office Visit Cardiology Zulma Dolan MD [facility] [place] [address] Liz Poole PA [facility] [place] [address] 06/10/2022 Office Visit Dermatology Laura Scherer MD [facility] [address] TEJA GR-DERMAT [place], [place] [address] (Wo rk) documented as of this encounter Visit Diagnoses Not on filedocumented in this encounter Care Teams Disability Manager Relationship Specialty Start Date End Date Angela Holliday APRN PCP - General 01/25/13 04/15/[address] [place] [address] documented as of this encounter
--- OUTSIDE RECORDS SUMMARY | 2022-04-13 08:18 | XMS_ITS | Encounter Summary ---
:1945 Author Organization [facility] [place] [address] Care Team Providers Name Role Phone MiyaAngela STACIE Primary Care Provider Reason for Visit Reason Comments Urinary Retention Encounter Details Date Type Department Care Team Description 05/16/2013 Follow-Up Urology at [facility] Blade Smith, Retention of urine [facility] (Primary Dx) [place] [address] UROLOGY DEPT [place] [id number] (Wo rk) Social History Tobacco Use Types [...] Dolan MD [facility] [address] [place], [place] [address] (Wo rk) 05/28/2022 Laboratory Appointment Lab 05/28/2022 Office Visit Cardiology Zulma Dolan MD [facility] [place] [address] Liz Poole PA [facility] [place] [address] 06/10/2022 Office Visit Dermatology Laura Scherer MD [facility] DR TEJA GR-DERMAT [place], [place] [address] (Wo rk) documented as of this encounter Visit Diagnoses Diagnosis Retention of urine - Primary Retention of urine, unspecified documented in this encounter Care Teams Dial Polisher Relationship Specialty Start Date End Date Angela Holliday APRN PCP - General 01/25/13 04/15/[address] [place] [address] documented as of this encounter
--- OUTSIDE RECORDS SUMMARY | 2022-04-13 08:22 | XMS_ITS | Encounter Summary ---
:1945 Author Organization [facility] Address [address] [place] [address] Care Team Providers Name Role Phone Lovely Vicente MD Primary Care Provider Encounter Details Date Type Department Care Team Description 04/04/2021 Lab Requisition [facility] Outr Resulting Lab, Pathology & Laboratory Provider [facility] [address] [place] [address] Social History Tobacco Use Types Packs/Day Years [...] Pathologist Sig nature Salmonella PCR Negative Negative [facility] Shigella/Enteroinvasive Negative Negative [facility] LABORATORY SERVICES HN LAB CAMPYLOBACTER PCR Negative Negative [facility] Shiga Toxin PCR Negative Negative [facility] Specimen Feces - Specimen from rectum (specimen) Performing Organization Address City/State/ZIP Code Phon e Number [facility] [address] [place] [address] SERVICES documented in this encounter Visit Diagnoses Not on filedocumented in this encounter Care Teams Career Development Coordinator Relationship Specialty Start Date End Date Lovely Vicente MD PCP - General 07/13/14 documented as of this encounter
--- OUTSIDE RECORDS SUMMARY | 2022-04-13 08:22 | XMS_ITS | Encounter Summary ---
:1945 Author Organization [facility] Address [address] [place] [address] Care Team Providers Name Role Phone Lovely Vicente MD Primary Care Provider Encounter Details Date Type Department Care Team Description 01/17/2021 Lab Requisition [facility] Outr Resulting Lab, Pathology & Laboratory Provider [facility] [address] [place] [address] Social History Tobacco Use Types Packs/Day Years [...] 0.0 - 6.5 ng/mL [facility] TORY SERVICES Specimen Blood - Venous blood (substance) Narrative [facility] - 01/17/2021 17:46 EDT NOTE: Serum PSA concentration should not be in terpreted as absolute evidence for the presence or absence of malignant disease. Assayed on Siemens ADVIA Centaur XPT usi ng chemiluminescent technology.??Values obtained by using different assay methods cannot be used interchangeably. Performing Organization Address City/State/ZIP Code Phon e Number [facility] [address] [place] [address] SERVICES documented in this encounter Visit Diagnoses Not on filedocumented in this encounter Care Teams Cuff Setter Overlock Relationship Specialty Start Date End Date Lovely Vicente MD PCP - General 07/13/14 documented as of this encounter
--- OUTSIDE RECORDS SUMMARY | 2022-04-13 08:22 | XMS_ITS | Encounter Summary ---
:1945 Author Organization Health system Address [address] [place] [address] Care Team Providers Name Role Phone Lovely Vicente MD Primary Care Provider Encounter Details Date Type Department Care Team Description 01/28/[address] [facility] Outr Resulting Lab, Pathology & Laboratory Provider [facility] [address] [place] [address] Social History Tobacco Use Types Packs/Day Years Used Date Never Assessed Sex Assigned at Date Recorded Not on file documented as of this encounter Plan of Treatment Not on filedocumented as of this encounter Procedures Procedure Name Priority Date/Time Associated Diagnosis Comme nts COVID-19 TEST [facility] Today 01/27/2022 14:30 LAB PCR EDT COVID-19 TESTING Routine 01/27/2022 14:30 Results for this EDT procedure are i n the results section. documented in this encounter Results COVID-19 TEST [facility] LAB PCR (01/27/2022 14:30 EDT) Specimen Swab Performing Organization Address City/State/ZIP Code Phon e Number [facility] LABORATORY [address] [place] [address] SERVICES COVID-19 TESTING (01/27/2022 14:30 EDT) COVID-19 rt-PCR Negative Negative [facility] MEDICAL Result Comment: CENTER LABORATORY [...] was performed using the meliton SARS-CoV-2 assay ([employer] on the Meliton 6800 System Performing Lab [place]iton [address] [facility] Lab [facility] LABORATORY SERVICES Specimen Swab Performing Organization Address City/State/ZIP Code Phon e Number [facility] LABORATORY [address] [place] [address] SERVICES documented in this encounter Visit Diagnoses Not on filedocumented in this encounter Care Teams Health Researcher Relationship Specialty Start Date End Date Lovely Vicente MD PCP - General 07/13/14 documented as of this encounter
--- OUTSIDE RECORDS SUMMARY | 2022-04-13 08:22 | XMS_ITS ---
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 Problem Critical ischemia I99.8 Active of lower extremity Problem Atherosclerosis I70.90 Active 3871 6007 Problem Type 2 diabetes E11.628 Active mellitus with other skin complications Problem 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 40 ; Acquired deformi ty of right foot M21.961 ; L luis term current use of i nsulin Z79.4 ; History of art erial bypass of lower extremi ty Z95.828 ; Atherosclerosis I70.90 and History of Lisfr anc amputation of fo ot Z89.439 [address] Feb, Type 2 diabet es mellitus [address] [place] with diabe tic neuropathy, [address] unspecified E11. 40 ; Acquired deformi ty of right foot M21.961 ; L luis term current use of i nsulin Z79.4 ; History of art erial bypass of lower extremi ty Z95.828 ; Atherosclerosis I70.90 and History of Lisfr anc amputation of fo ot Z89.439 [facility] November, [place] [address] [facility] [facility] November, Type 2 [place] [address] with diabeti c neuropathy, unspecified E11. 40 ; Acquired deformi ty of right foot M21.961 ; L luis term current use of i nsulin Z79.4 ; History of art erial bypass of lower extremi ty Z95.828 ; Atherosclerosis I70.90 and History of Lisfr anc amputation of fo ot Z89.439 [facility] 10 Aug, 2019 Type 2 [place] [address] with other skin complications E1 1.628 ; Tinea pedis of l eft foot B35.3 ; Type 2 d iabetes mellitus with di abetic neuropathy, unsp ecified E11.40 ; Acquire d deformity of right foot M2 1.961 ; residential current use of insulin Z79.4 ; History of arterial bypass of lower extremity Z95.828 and Athe rosclerosis I70.90 [facility] Jun, [place] [address] [address] Jun, [place] [address] [address] Jun, Type 2 diabet es mellitus [place], [place] with other skin [address] complications E1 1.628 ; Acquired deformi ty of right foot M21.961 ; T ype 2 diabetes mellitu s with diabetic neuropa thy, unspecified E11. 40 ; long term care administrator current use of insulin Z79.4 and Histor y of arterial bypass of lower extremity Z95.82 8 [facility] Feb, Type 2 [place] [address] with other s kin complications E1 1.628 ; Acquired deformi ty of right foot M21.961 ; T ype 2 diabetes mellitu s with diabetic neuropa thy, unspecified E11. 40 ; residential current use of insulin Z79.4 and Histor y of arterial bypass of lower extremity Z95.82 8 [facility] November, Tinea pedis o f left foot [place], [place] B35.3 ; Ty pe 2 diabetes [address] mellitus with ot her skin complications E1 1.628 ; Acquired deformi ty of right foot M21.961 ; T ype 2 diabetes mellitu s with diabetic neuropa thy, unspecified E11. 40 ; long term care administrator current use of insulin Z79.4 and Histor y of arterial bypass of lower extremity Z95.82 8 [facility] November, [place] [address] [address] Aug, Type 2 diabet es mellitus [place], [place] with diabe tic neuropathy, [address] unspecified E11. 40 ; Acquired deformi ty of right foot M21.961 ; P eripheral arterial disease I73.9 ; History of arter ial bypass of lower extremi ty Z95.828 ; residential curren t use of insulin Z79.4 an d History of Lisfranc amputat ion of foot Z89.439 UNKNOWN Jul, [facility] 11 Jun, 2018 Type 2 [place] [address] with diabeti c neuropathy, unspecified E11. [address] [facility] Apr, Edema of both legs R60.0 ; [place], [place] Acquired d eformity of right [address] foot M21.961 ; P eripheral arterial disease I73.9 ; History of arter ial bypass of lower extremi ty Z95.828 ; long term care administrator curren t use of insulin Z79.4 an d Type 2 diabetes mellitu s with diabetic neuropa thy, unspecified E11. [address] [facility] Mar, [place] [address] [address] Mar, Edema of both legs R60.0 ; [place] Acquired d eformity of right [address]87[address] foot M21.961 ; P eripheral arterial disease I73.9 ; History of arter ial bypass of lower extremi ty Z95.828 ; long term care administrator curren t use of insulin Z79.4 an d Type 2 diabetes mellitu s with diabetic neuropa thy, unspecified E11. 40 [facility] Feb, Edema of both legs R60.0 ; [place] [address] Ulcer of lef t calf, limited to breakdown of skin L97.221 ; Acquired defor mity of right foot M21.9 61 ; Peripheral arter ial disease I73.9 ; History of arterial bypass of lower extremity Z95.828 ; Long t erm current use of insulin Z 79.4 and Type 2 diabetes mellitus with diabetic ne uropathy, unspecified E11. 40 [facility] 1 Feb, [facility] [place] [address] [facility] Feb, Edema of both legs R60.0 ; [place] [address] Ulcer of rig ht calf, limited to [...] [facility] Feb, [place] [address] [facility] [address] [facility] [address] Feb, [place] [address] [facility] [address] [facility] [address] Jan, [place] [address] [facility] [address] [facility] [address] Jan, [place] [address] [facility] [address] [facility] [address] Jan, [place] [address] [facility] [address] [facility] [address] Jan, [place] [address] [facility] [address] [facility] [place] [address] [facility] [address] [facility] [address] Dec, [place] [address] [facility] [address] [facility] [address] Dec, [place] [address] [facility] [address] [facility] [address] Dec, [place] [address] [facility] [address] [facility] [address] Dec, [place] [address] [facility] Dec, [place] [address] [facility] [address] [facility] [address] Dec, [place] [address] [facility] November, [place] [address] [facility] November, [place] [address] [facility] November, [place] [address] [facility] November, [place] [address] [facility] [place], [place] [address] [facility] November, [place] [address] UNKNOWN November, [facility] [address] [place] [address] November, OFFICE [place] [address] [facility] November, [place], [place] [address] [facility] Oct, [place] [address] [facility] Oct, [place] [address] [facility] Oct, [place] [address] [facility] [place] 18 Oct, 2017 [place] [address] [facility] 16 Oct, 2017 [place] [address] [facility] [facility] [place] 16 Oct, 2017 [facility] [address] [facility] Oct, [place] [address] [facility] Oct, [place] [address] [facility] Oct, [place] [address] [facility] [facility] [place] Sep, [facility] [address] [facility] Sep, [place] [address] [facility] [facility] [place] Sep, [place] [address] [facility] [place] Sep, [place] [address] [facility] [facility] [place] Sep, [place] [address] [facility] [place] Sep, Critical ischemi a of lower [place] [address] extremity I 99.8 ; Local infection of the skin and subcutaneous tis lindsey, unspecified L08. 9 and Type 2 diabetes mellitu s with other skin complicatio ns E11.628 [facility] Sep, [place] [address] [facility] [address] [facility] [address] Sep, [place] [address] [facility] [address] [facility] [address] Sep, [place] [address] [facility] [address] [facility] 14 Sep, [address] [place] [address] [facility] Sep, [place] [address] [facility] Sep, [place] [address] [facility] Sep, [place] [address] [facility] Sep, [place] [address] [facility] [address] [facility] [address] Aug, [place] [address] [facility] [address] [place] Aug, [facility] [address] [facility] [address] [place] Aug, [place] [address] SURGERY [facility] Aug, [place] [address] SURGERY [facility] Aug, [place] [address] [facility] Aug, [place] [address] ORTHOPEDIC OFFICE [facility] Aug, Pre-op exam Z01.818 [place] [address] [facility] Aug, [place] [address] [facility] Aug, [place] [address] [facility] Aug, [place] [address] IMMUNIZATIONS No Known Immunizations SOCIAL HISTORY Qualifiers [...] subcutaneously 22 24h Active units/mL daily Pen Hulbert Active Ciclopirox Externally Twice 1 application 12h [...] For Report MR Lower Ext R w/o ([id number]) 2017-09-16 See Below For Report CR C-ARM [...] A1c 03/04/18 - 6.7, [facility] annually, f/u - bilateral leg edema, Pt [...] at wound center,lab work done 03/07/2018 @ [facility], Patient came in with tubigrip bilateral , wound clin est, wound clinest, Wound CTR-follow up, Wound CTR-follow up, Wound CTR-follow up, Peer to Peer w/ Dr. Espino, Wound CTR-follow up, Wound CTR-follow up, Outside Sales Representative Documentation, LAB, Wound CTR-follow up, Wound CTR-follow up, Wound CTR-follow up, Wound CTR-follow up, LAB, LAB, Wound CTR- follow up, Wound CTR-follow up, Wound CTR-follow up, Outside Sales Representative Documentation, [facility], Wound CTR-follow up, Wound CTR-follow up, Pull PICC Line, Wound CTR-follow up, Wound CTR-follow up, LAB, Still taking doxycycline 100mg? , Wound CTR-follow up, Wound CTR-follow up, Wound CTR-follow up, Outside Sales Representative Documentation, Wound CTR-follow up, Wound CTR-follow up, Call back, Outside Sales Representative Documentation, Outside Sales Representative Documentation, Outside Sales Representative Documentation, Wound CTR-follow up, WCC, Wound CTR-follow up, Wound CTR-follow up, labs, D/C planning, bailey smetatarsal amputation of right foot, LAB, LAB, Wound CTR-NEW Insurance Providers [facility] Patient Patient Patient Patient Patient Subscriber Subscriber Subscriber Group Insurance Plan Plan Plan Plan ID Relationship Address Phone Name Date of ID Name Date of No Type Insurance Insurance Insurance Coverage to Subscriber Address Phone Name Dates OTHER [place]INA [phone] OTHER [place]REG[place] [id number] GRANT 1^[facility] [place] [facility] [id number] SELF PAY [address] SELF PAY self [place]REG[place] [id number] AFTER BLUE [place] AFTER BLUE [facility] [address] [place] S-BLUE [phone] S-BLUE [place]REG[place] [id number] [address] [place] [address] [place] 3000 [employer] MEDICARE self GREG[place] [id number] [facility] [id number]
--- OUTSIDE RECORDS SUMMARY | 2022-04-13 08:22 | XMS_ITS | Encounter Summary ---
:1945 Author Organization [facility] Address [address] [place] [address] Care Team Providers Name Role Phone Unavailable Primary Care Provider Unavailable Encounter Details Date Type Department Care Team Description 03/05/2014 Hospital Encounter [facility]- Heather Unknown, Provider, [facility] 0 [facility] [phone] [place] [address] (Work) [phone] Social History Tobacco Use Types Packs/Day Years Used Date Never Assessed Sex Assigned at Date Recorded Not on file documented as of this encounter Discharge Disposition Disposition Code Departure Means Destination Home or Self Intermediate documented in this encounter Plan of Treatment Not on filedocumented as of this encounter Visit Diagnoses Not on filedocumented in this encounter
--- OUTSIDE RECORDS SUMMARY | 2022-04-13 08:22 | XMS_ITS | Encounter Summary ---
:1945 Author Organization [facility] Address [address] [place] [address] Care Team Providers Name Role Phone Unknown, Provider Primary Care Provider Encounter Details Date Type Department Care Team Description 03/05/2014 Results Only [facility] Eris Taylor MD Laboratory Services - [address] [place] [address] [place] [address] [phone] Social History Tobacco Use Types Packs/Day Years [...] ? DON HOANG ? Accession #: ? [id number] ? : ? 1945 (Age: 68) ??M [...] e Number [facility] [address] [place] [address] SERVICES [facility] [address] [place] [address] documented in this encounter Visit Diagnoses Not on filedocumented in this encounter Care Teams Data Warehousing Specialist Relationship Specialty Start Date End Date Unknown, Provider, PCP - General 03/07/14 07/12/14 documented as of this encounter
--- OUTSIDE RECORDS SUMMARY | 2022-04-13 08:22 | XMS_ITS | Clinical Summary ---
:1945 Author Organization [facility] Address [address] [place] [address] Care Team Providers Name Role Phone Lovely [...] i n the results section. COVID-19 TEST [facility] Today 01/27/2022 14:30 LAB PCR EDT COVID-19 TESTING Routine 01/27/2022 14:30 Results for this EDT procedure are i n the results section. from Last 3 Months Results PSA TOTAL, DIAGNOSTIC (02/20/2022 9:04 EDT) Pathologist Sig nature PSA 2.7 <=6.5 ng/mL [facility] Specimen Blood - Venous blood (substance) Narrative [facility] SERVICES - 02/20/2022 18:17 EDT NOTE: Serum PSA concentration should not be in terpreted as absolute evidence for the presence or absence of malignant disease. Assayed on Siemens [employer] Centaur XPT usi ng chemiluminescent technology.??Values obtained by using different assay methods cannot be used interchangeably. Performing Organization Address City/State/ZIP Code Phon e Number [facility] [address] [place] [address] SERVICES COVID-19 TEST [facility] LAB PCR (01/27/2022 14:30 EDT) Specimen Swab Performing Organization Address City/[facility]/ZIP Code Phon e Number [facility] [address] [place] [address] SERVICES COVID-19 TESTING (01/27/2022 14:30 EDT) COVID-19 [...] performed using the meliton SARS-CoV-2 assay ([employer] on the Meliton 6800 System Performing Lab Meliton 6800 [facility] Lab [facility] SERVICES Specimen Swab Performing Organization Address City/[facility]/ZIP Code Phon e Number [facility] [address] [place] [address] SERVICES from Last 3 Months Care Teams Eyeglass Lens Cutter Relationship Specialty Start Date End Date Lovely Vicente MD PCP - General 07/13/14
--- OUTSIDE RECORDS SUMMARY | 2022-04-13 08:22 | XMS_ITS | Encounter Summary ---
:1945 Author Organization [facility] Address [address] [place] [address] Care Team Providers Name Role Phone Unknown, Provider Primary Care Provider Encounter Details Date Type Department Care Team Description 07/11/2014 Results Only [facility] Shruthi Horowitz MD Laboratory Services - [address] [place] [address] [place] [address] 0 [facility] [place] [address] [phone] Social History Tobacco Use Types Packs/Day Years Used Date Never Assessed Sex Assigned at Date Recorded Not on file documented as of this encounter Plan of Treatment Not on filedocumented as of this encounter Procedures Procedure Name Priority Date/Time Associated Diagnosis Comme [facility] SURGICAL PATHOLOGY Routine 07/11/2014 8:55 EST Re sults for this procedure are i n the results section. documented in this encounter Results SURGICAL PATHOLOGY (07/11/2014 8:55 EST) Pathology Report: SURGICAL PATHOLOGY REPORT [facility] Reports generated via electronic interface contain sorin ginal data; LABORATORY however they are lacking the format of the original re port. SERVICES Caution should be taken when reading/interpreting unfo rmatted reports. Name: ? DON HOANG ? Accession #: ? [id number] ? : ? 1945 (Age: 69) ??M [...] 6.5 x 3.0 cm in aggreg ate). Heater Operator sections are submitted in 1- 10 (approximately 40% of the specimen is submitted). Viry Nunez 07/12/2014 11:21 AM End of Report Specimen Performing Organization Address City/State/ZIP Code Phon e Number [facility] [address] [place] [address] SERVICES documented in this encounter Visit Diagnoses Not on filedocumented in this encounter Care Teams Complaint Evaluation Officer Relationship Specialty Start Date End Date Unknown, Provider, PCP - General 03/07/14 07/12/14 documented as of this encounter
--- OUTSIDE RECORDS SUMMARY | 2022-04-13 08:22 | XMS_ITS | Encounter Summary ---
:1945 Author Organization [facility] Address [address] [place] [address] Care Team Providers Name Role Phone Unknown, Provider Primary Care Provider Encounter Details Date Type Department Care Team Description 07/11/2014 Hospital Encounter [facility]- Heather Unknown, Provider, [facility] [address] [place] [address] [place] [address] (Work) [phone] Social History Tobacco Use Types Packs/Day Years Used Date Never Assessed Sex Assigned at Date Recorded Not on file documented as of this encounter Discharge Disposition Disposition Code Departure Means Destination Home or Self Jail documented in this encounter Plan of Treatment Not on filedocumented as of this encounter Visit Diagnoses Not on filedocumented in this encounter Care Teams Valuation Manager Relationship Specialty Start Date End Date Unknown, Provider, PCP - General 03/07/14 07/12/14 documented as of this encounter
--- OUTSIDE RECORDS SUMMARY | 2022-04-13 08:22 | XMS_ITS | Encounter Summary ---
:1945 Author Organization [facility] Address [address] [place] [address] Care Team Providers Name Role Phone Lovely Vicente MD Primary Care Provider Encounter Details Date Type Department Care Team Description 08/11/2019 Lab Requisition [facility] Unknown, Provider, Pathology & Laboratory [facility] [address] [facility] [place] [address] Social History Tobacco Use Types Packs/Day Years [...] (08/11/2019 14:35 EST) Giardia and Cryptosporidium Cryptosporidium [facility] Cryptosporidium Antigen Neg and Antigen Neg and CENTER Giardia Antigen Neg Giardia Antigen Neg LABORATORY SERVICES Specimen Feces - Specimen from rectum (specimen) Performing Organization Address City/State/ZIP Code Phon e Number [facility] [address] [place] [address] SERVICES documented in this encounter Visit Diagnoses Not on filedocumented in this encounter Care Teams Director Of [employer] Relationship Specialty Start Date End Date Lovely Vicente MD PCP - General 07/13/14 documented as of this encounter
--- OUTSIDE RECORDS SUMMARY | 2022-04-13 08:22 | XMS_ITS | Encounter Summary ---
:[address] [facility] Address [address] [place] [address] Care Team Providers Name Role Phone Lovely Vicente MD Primary Care Provider Encounter Details Date Type Department Care Team Description 02/20/2022 Lab Requisition [facility] Outr Resulting Lab, Pathology & Laboratory Provider [facility] [address] [place] [address] Social History Tobacco Use Types Packs/Day Years [...] Pathologist Sig nature PSA 2.7 <=6.5 ng/mL [facility] SERVICES Specimen Blood - Venous blood (substance) Narrative [facility] SERVICES - 02/20/2022 18:17 EDT NOTE: Serum PSA concentration should not be in terpreted as absolute evidence for the presence or absence of malignant disease. Assayed on Siemens [employer] Centaur XPT usi ng chemiluminescent technology.??Values obtained by using different assay methods cannot be used interchangeably. Performing Organization Address City/State/ZIP Code Phon e Number [facility] [address] [place] [address] SERVICES documented in this encounter Visit Diagnoses Not on filedocumented in this encounter Care Teams Library Clerk Relationship Specialty Start Date End Date Lovely Vicente MD PCP - General 07/13/14 documented as of this encounter
--- OUTSIDE RECORDS SUMMARY | 2022-04-13 08:22 | XMS_ITS | Encounter Summary ---
:1945 Author Organization [facility] Address [address] [place] [address] Care Team Providers Name Role Phone Lovely Vicente MD Primary Care Provider Encounter Details Date Type Department Care Team Description 01/01/2020 Lab Requisition [facility] Outr Resulting Lab, Pathology & Laboratory Provider [facility] [address] [place] [address] Social History Tobacco Use Types Packs/Day Years [...] Phon e Number [facility] [address] [place] [address] SERVICES documented in this encounter Visit Diagnoses Not on filedocumented in this encounter Care Teams Trolley Car Overhauler Relationship Specialty Start Date End Date Lovely Vicente MD PCP - General 07/13/14 documented as of this encounter
--- OUTSIDE RECORDS SUMMARY | 2022-04-15 08:15 | XMS_ITS | Encounter Summary ---
:1945 Author Organization [facility] [address] Care Team Providers Name Role Phone Lovely Vicente MD Primary Care Provider Encounter Details Date Type Department Care Team Description 02/19/2022 Laboratory Appointment Lab 3L [facility] [place] [id number] Social History Tobacco Use Types Packs/Day Years [...] MD [facility] er [place] [address] (Wo rk) 05/28/2022 Laboratory Appointment Lab 05/28/2022 Office Visit Cardiology Zulma Dolan MD [facility] [place] [address] Liz Poole PA [facility] [place] [address] 06/10/2022 Office Visit Dermatology Laura Scherer MD [facility] [address] [address] (Wo rk) documented as of this encounter [...] (ABNORMAL) Differential, Automated (02/19/2022 8:06 AM EDT) [facility] gist Method Time Signature Neutrophils % 76.0 % [facility] LABORATORY Neutr Abs (ANC) 5.49 1.70 - [facility] 6.10 [facility] x10(3)/[facility] LABORATORY Lymphocytes % 10.8 % [facility] LABORATORY Lymphocytes Abs 0.8 (L) 0.9 - 3.[address] [facility] x10(3)/[facility] LABORATORY Monocytes % 10.2 % [facility] LABORATORY Monocyte Abs 0.7 0.3 - 0.[address] [facility] x10(3)/[facility] LABORATORY Eosinophils % 1.2 % [facility] LABORATORY Eosinophils Abs 0.1 0.0 - 0.[address] [facility] x10(3)/[facility] LABORATORY Basophils % 0.8 % [facility] LABORATORY Basophils Abs 0.1 0.0 - 0.[address] [facility] x10(3)/[facility] LABORATORY Immature Gran % 1.00 % [place] [...] City/State/[place] [address] (ABNORMAL) Hemogram (02/19/2022 8:06 AM EDT) Analysis Performed At Patho logist Time Signature WBC 7.2 4.0 - 9.[address] [facility] x10(3)/[facility] LABORATORY RBC 4.41 (L) 4.58 - [facility] 5.54 [facility] x10(6)/[facility] LABORATORY Hemoglobin 13.2 (L) 13.7 - [facility] 16.5 g/dL [facility] LABORATORY Hematocrit 40.9 40.5 - [facility] 48.5 % [facility] LAB[facility]AT[facility] MCV 92.7 82.9 - [facility] 93.1 [facility] LABORATORY MCH 29.9 27.5 - [facility] 32.1 pg [facility] LABORATORY MCHC 32.3 32.0 - [facility] 35.7 g/dL [facility] LABORATORY Platelets 191 145 - [address] [facility] x10(3)/[facility] LABORATORY RDWSD 53.6 (H) 36.0 - [facility] 45.0 [facility] LABORATORY RDWCV 15.6 (H) 11.4 - [facility] 13.8 % [facility] LABORATORY MPV 8.7 7.6 - 12.9 [facility] LABORATORY nRBC % Auto 0.0 % [facility] LABORATORY nRBC Abs Auto 0.000 0.000 - [facility] 0.000 [facility] x10(3)/[facility] LABORATORY Specimen Anatomical Collection Method Collection Time Receive d Time (Source) Location / / Volume Laterality Blood 02/19/2022 8:06 AM 2 8:09 EDT AM EDT Resulting Agency Comment Spec In Lab Liz BROWN HEMATOLOGY ORDERABLES Performing Organization Address City/[facility]/[place] [address] (ABNORMAL) pro-Brain Natriuretic Peptide [...] Address City/State/[place] [address] (ABNORMAL) Basic Metabolic Panel (non-fasting) (02/19/2022 8:06 AM EDT) P athologist Signature Glucose Lvl 139 65 - [address] [facility] mg/dL [facility] LABORATORY [...] City/State/[place] [address] documented in this encounter Visit Diagnoses Diagnosis Chronic systolic heart failure documented in this encounter Care Teams Brick Machine Operator Relationship Specialty Start Date End Date Lovely Vicente MD PCP - General 04/16/[address] [place] [address] documented as of this encounter
--- OUTSIDE RECORDS SUMMARY | 2022-04-15 08:15 | XMS_ITS | Encounter Summary ---
:1945 [place] [address] Care Team Providers Name Role Phone Lovely Vicente MD Primary Care Provider Reason for Visit Reason Onset Date Comments Follow-up 02/26/2022 Entresto start Encounter Details Date Type Department Care Team Description 02/26/2022 Telephone Cardiology [place] [facility] Martha Comer, Follow-up ([facility] RN start) [place] [address] Social History Tobacco Use Types Packs/Day [...] 03/05/22 Getting labs done at : [facility] Order e-faxed by STEPHANIE Poole on 02/24/22. /pt to call on 03/05/22 letting us know to get the BMP results from [facility]. Nursing to get results and contact pt to see how he is tolerating the Entresto. They are to call sooner with any questions/concerns. documented in this encounter Plan of Treatment Upcoming Encounters Date Type Specialty Care Team Description 05/28/2022 Appointment Cardiology Zulma Dolan MD [facility] [place], [place] [address] (Wo rk) 05/28/2022 Laboratory Appointment Lab 05/28/2022 Office Visit Cardiology Zulma Dolan MD [facility] [place] [address] Liz Poole PA [facility] [place] [address] 06/10/2022 Office Visit Dermatology Laura Scherer MD [facility] DR [address] [place], [place] [address] (Wo rk) documented as of this encounter Visit Diagnoses Not on filedocumented in this encounter Care Teams Geological Technical Officer Relationship Specialty Start Date End Date Lovely Vicente MD PCP - General 04/16/[address] [place] [address] documented as of this encounter
--- OUTSIDE RECORDS SUMMARY | 2022-04-15 08:15 | XMS_ITS | Encounter Summary ---
:1945 Author Organization [place] [address] Care Team Providers Name Role Phone Lovely Vicente MD Primary Care Provider Encounter Details Date Type Department Care Team Description 02/23/2022 Refill Cardiology at [facility] Liz Poole PA [facility] [place] [address] Cardiology Dept [phone] [place], [place] [address] (Wo rk) Social History Tobacco [...] Oneill RPH Transfer of Services Don Fatima [address] [place] [address] [place] [address] Telephone Information: Work Phone Not on file. The [facility] has received a prescription for Entresto for patient Mr. Don Fatima 76 y.o. (1945). The patient requests the prescription to be filled with [facility]. We spoke to patient to notify of this change and to provide number to reach the new filling pharmacy. A copyof patient's medication profile was offered to the accepting pharmacy. Additional instructions provided to patient about transfer: no The patient has been advised to call the [facility] at [phone] with any questionsor concerns on this referral. Thank you, Oxana Oneill RPH 02/23/22 4:26 PM Patient understands no changes to current drug regimen were made at this time. documented in this encounter Plan of Treatment Upcoming Encounters Date Type Specialty Care Team Description 05/28/2022 Appointment Cardiology Zulma Dolan MD [facility] [place], [place] [address] (Wo rk) 05/28/2022 Laboratory Appointment Lab 05/28/2022 Office Visit Cardiology Zulma Dolan MD [facility] [place] [address] Liz Poole PA [facility] [place] [address] 06/10/2022 Office Visit Dermatology Laura Scherer MD [facility] DR [address] [place], [place] [address] (Wo rk) documented as of this encounter Visit Diagnoses Not on filedocumented in this encounter Care Teams Pvc Monitor Relationship Specialty Start Date End Date Lovely Vicente MD PCP - General 04/16/[address] [place] [address] documented as of this encounter
--- OUTSIDE RECORDS SUMMARY | 2022-04-15 08:15 | XMS_ITS | Encounter Summary ---
:1945 Author Organization [facility] Address [facility] [place] [address] Care Team Providers Name Role Phone Lovely Vicente MD Primary Care Provider Reason for Visit Reason Onset Date Comments Medication Refill 03/06/2022 Metoprolol Succinate Encounter Details Date Type Department Care Team Description 03/06/2022 Refill Cardiology at [facility] Liz Poole PA Medication Refill [facility] ([place] toprolol Succinate) [place] [address] Cardiology Dept [phone] [place], [place] [address] (Wo rk) Social History Tobacco [...] MD [facility] [place] [address] (Wo rk) 05/28/2022 Laboratory Appointment Lab 05/28/2022 Office Visit Cardiology Zulma Dolan MD [facility] [place] [address] Liz Poole PA [facility] [place] [address] 06/10/2022 Office Visit Dermatology Laura Scherer MD [facility] ER DR [address] [place], [place] [address] (Wo rk) documented as of this encounter Visit Diagnoses Diagnosis Chronic systolic heart failure Cardiomyopathy, ischemic Other specified forms of chronic ischemi c heart disease documented in this encounter Care Teams Temperature Logging Operator Relationship Specialty Start Date End Date Lovely Vicente MD PCP - General 04/16/[address] [place] [address] documented as of this encounter
--- OUTSIDE RECORDS SUMMARY | 2022-04-15 08:15 | XMS_ITS | Clinical Summary ---
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 er [address] [place] [address] (Wo rk) 05/28/2022 Laboratory Appointment Lab 05/28/2022 Office Visit Cardiology Zulma Dolan MD [facility] [place] [address] Liz Poole PA [facility] [place] [address] 06/10/2022 Office Visit Dermatology Laura Scherer MD [facility] ER DR TE[address] [place], [place] [address] (Wo rk) Health Maintenance Due Date Last Done Comments Covid-19 Vaccine (#1) 1950 Pneumoccocal Vaccine: 65+ (1 - PCV) 1952 Hepatitis C Screening 1964 Tdap adult 1965 Tetanus vaccine 1965 Zoster vaccine (1 of 2) 1996 Colonoscopy 01/16/2019 01/16/2014, 01/16/2014 Influenza (Flu) vaccine (1 of - 03/26/2022 03/29/2013, Influenza standard series) Medical Devices Implanted Type Area Research Worker Kitchen Device Shelf Model / Identifier Expiration Serial / Date Lot Cable,Cut,Edg,Blnt,Ss,3tpr ([id number]) - [id number] IMPLANTS Midline: [employer] 04/01/2022 [id number] / Implanted: Qty: 4 on 07/07/2017 by Yuan Retana MD at [facility] [employer] - / [id number] Procedures Procedure Name Priority Date/Time Associated Diagnosis [...] WBC 7.2 4.0 - 9.5 [facility] x[facility](3[facility] LABORATORY RBC 4.41 (L) 4.58 - [facility] 5.54 [facility] x10(6)/[facility] LABORATORY Hemoglobin 13.2 (L) 13.7 - [facility] 16.5 g/dL [facility] LABORATORY Hematocrit 40.9 40.5 - [facility] 48.5 % [facility] LABORATORY MCV 92.7 82.9 - [facility] 93.1 [facility] LABORATORY MCH 29.9 27.5 - [facility] 32.1 pg [facility] LABORATORY MCHC 32.3 32.0 - [facility] 35.7 g/dL [facility] LABORATORY Platelets 191 145 - 357 [facility] x[facility](3[facility] LABORATORY RDWSD 53.6 (H) 36.0 - [facility] 45.0 [facility] LABORATORY RDWCV 15.6 (H) 11.4 - [facility] 13.8 % [facility] LABORATORY MPV 8.7 7.6 - 12.9 [facility] LABORATORY nRBC % Auto 0.0 % [facility] LABORATORY nRBC Abs Auto 0.000 0.000 - [facility] 0.000 [facility] x10(3)/[facility] LABORATORY Specimen Anatomical Collection Method Collection Time Receive d Time (Source) Location / / Volume Laterality Blood 02/19/2022 8:06 AM 8:09 EDT AM EDT Resulting Agency Comment Spec In Lab Liz BROWN HEMATOLOGY ORDERABLES Performing Organization Address City/State/[place] [address] (ABNORMAL) Differential, Automated (02/19/2022 8:06 AM EDT)Only the most recent of3 resultswithin the time period is included. [facility] Method Time Signature Neutrophils % 76.0 % [facility] LABORATORY Neutr Abs (ANC) 5.49 1.70 - [facility] 6.10 [facility] x10(3)/[facility] LABORATORY Lymphocytes % 10.8 % [facility] LABORATORY Lymphocytes Abs 0.8 (L) 0.9 - 3.2 [facility] x10(3)/[facility] LABORATORY Monocytes % 10.2 % [facility] LABORATORY Monocyte Abs 0.7 0.3 - 0.9 [facility] x10(3)/[facility] LABORATORY Eosinophils % 1.2 % [facility] LABORATORY Eosinophils Abs 0.1 0.0 - 0.4 [facility] x10(3)/[facility] LABORATORY Basophils % 0.8 % [facility] LABORATORY Basophils Abs 0.1 0.0 - 0.1 [facility] x10(3)/[facility] LABORATORY Immature Gran % 1.00 % [...] Liz BROWN HEMATOLOGY ORDERABLES Performing Organization Address City/[facility]/[place] [address] (ABNORMAL) pro-Brain Natriuretic Peptide (02/19/2022 8:06 AM EDT) P athologist Signature ProBNP 984 (H) <=449 pg/mL [facility] LABORATORY Specimen Anatomical Collection Method Collection Time Receive d Time (Source) Location / / Volume Laterality Blood 02/19/2022 8:06 AM 2 8:09 EDT AM EDT Resulting Agency Comment Spec In Lab Zulma Plunkett MD CHEMISTRY ORDERABLES Performing Organization Address City/[facility]/[place] [address] POCT Glucose (01/30/2022 1:41 PM EDT)Only the most recent of4 resultswithin the time period is included. P athologist Signature POC Glucose 148 65 - 199 [facility] mg/dL [facility] [...] City/[facility]/ZIP Code Phon e Number [address] EKG 12 Lead (01/30/2022 10:33 AM EDT) Component Value Ref Range Test Analysis Performed Pathologis t Method Time At Signature Ventricular rate 64 BPM MUSE SYSTEM Atrial Rate 64 BPM MUSE SYSTEM P-R Interval 162 ms MUSE SYSTEM QRS Duration 94 ms MUSE SYSTEM Q-T Interval 422 ms MUSE SYSTEM QTC Calculated 435 ms MUSE SYSTEM (Bezet) Calculated P Logan 41 degrees MUSE SYSTEM Calculated R Logan -27 degrees MUSE SYSTEM Calculated T Logan 104 degrees MUSE SYSTEM INTERPRETATION Normal sinus rhythm MUSE SYSTEM Anterolateral infarct (cited on or before 09-DEC-2021) Abnormal ECG When compared with ECG of 10-DEC-2021 11:17, No significant change was found Confirmed by Gary Perez ([id number]) on 01/30/2022 5:57:5 2 PM Specimen Anatomical [...] Laterality Volume Narrative 01/30/2022 2:09 PM EDT ?[facility] ? Cardiac Cathete rization/Intervention Report ? Patient Name: Génesis Fatimarory Mccollum. ? Procedure Date: 01/30/2022 ? A #: [id number] ? Primary Physician: Nobles, Vitaliy P ? Case #: [id number] ? File Name: [id number] ? Catheterization Order Number: [id number] ? [facility] ? Final Report [place], [place] ? Patient Name: ? Don E. Stewa rt ? ID#: ?[id number] ? : ?1945 ? Procedure Date: ? [...] ?designated as ASA Class III. [facility] clinical frailty scale is 5: Mildly [...] guiding catheter an d a 3.[address] [place] [address] ??20 Mhz ?using Manual pullback. ??Imagin [...] A premounted 2.00 x 26 mm Hardeep Emmons (TUCKER) ? was deployed wi th a [...] Wedelivered along 2.0 x 26 mm HARDEEP Emmons ? TUCKER stent and p ositioned it [...] using a 2.0 x 26 mm HARDEEP Emmons TUCKER stent. ?This completes the revasculariz ation [...] Procedure Note Vitaliy Nobles MD - 03/06/2022 [facility] Cardiac Catheterization/Intervention Re port Patient Name: Don Fatima Procedure Date: 01/30/2022 A #: [id number] Primary Physician: Vitaliy Nobles Case #: [id number] File Name: [id number] Catheterization Order Number: [id number] [facility] Bioinformatics Research Technician [facility] Final Report [place], [place] Patient Name: Don Fatima ID#: [...] 6 SLFr sheath [facility] utilizing the Seldinger technique. [...] 1.5 guiding catheter and a 3.[address] 20 Mhz using Manual pullback. Imaging [...] A premounted 2.00 x 26 mm Hardeep Emmons (TUCKER) was deployed with a maximum inflation [...] along 2. 0 x 26 mm HARDEEP Emmons TUCKER stent and positioned it at the [...] modification of this regimen. Consult [facility] Interventional Cardiology for questions. [...] using a 2.0 x 26 mm HARDEEP Emmons TUCKER stent. This completes the revascularization of [...] T ype Group Dates MEDICARE MEDICARE PART [id number] 2011-Prese [phone] [place] [address] [employer] [place] V[place] [id number] 2018-Prese [phone] [address] [employer] [address] [place] [address] Advance Directives Documents on File Type Date Recorded Patient Gig Tender Explanati on Advance Directives and Living 03/28/2013 [...] capacity to make decision: Yes Care Teams Spanish Professor Relationship Specialty Start Date End Date Lovely Vicente MD PCP - General 04/16/[address] [place] [address]
--- OUTSIDE RECORDS SUMMARY | 2022-04-15 08:15 | XMS_ITS | Encounter Summary ---
:1945 Author Organization [facility] [place] [address] Care Team Providers Name Role Phone Lovely Vicente MD Primary Care Provider Reason for Visit Auth/Cert Specialty Diagnoses / Procedures Referred By Contact Refer red To Contact Diagnoses ASCVD (arteriosclerotic cardiovascular disease) [I25.10] Vitaliy Nobles MD [facility] Procedures PRO PERC TRLUML CORONARY STENT W/ANGIO ONE ART/BRANCH CARDIAC CATHETERIZATION STENT PLACEMENT-SINGLE MAJOR CORONARY ARTERY OR BRANCH [facility] [place] [address] Referral ID Status Reason Start Date Expiration Date Visits Requ ested Visits Authorized [id number] 1 1 Encounter Details Date Type Department Care Team Description 01/30/2022 Laboratory Lab 3L [facility] ASCVD (arterios clerotic Appointment [facility] cardiovas cular disease) [place] [address] Social History Tobacco Use Types Packs/Day Years [...] Zulma Dolan MD [facility] [place], [place] [address] (Wo rk) 05/28/2022 Laboratory Appointment Lab 05/28/2022 Office Visit Cardiology Zulma Dolan MD [facility] [place] [address] Liz Poole PA [facility] [place] [address] 06/10/2022 Office Visit Dermatology Laura Scherer MD [facility] DR [address]MAT [place], [place] [address] (Wo rk) documented as of [...] (ABNORMAL) Differential, Automated (01/30/2022 7:19 AM EDT) [facility] gist Method Time Signature Neutrophils % 77.9 % [facility] LABORATORY Neutr Abs (ANC) 5.31 1.70 - [facility] 6.10 [facility] x10(3)/[facility] LABORATORY Lymphocytes % 12.0 % [facility] LABORATORY Lymphocytes Abs 0.8 (L) 0.9 - 3.2 [facility] x10(3)/[facility] LABORATORY Monocytes % 8.1 % [facility] LABORATORY Monocyte Abs 0.6 0.3 - 0.9 [facility] x10(3)/[facility] LABORATORY Eosinophils % 0.4 % [facility] LABORATORY Eosinophils Abs 0.0 0.0 - 0.4 [facility] x10(3)/[facility] LABORATORY Basophils % 0.6 % [facility] LABORATORY Basophils Abs 0.0 0.0 - 0.1 [facility] x10(3)/[facility] LABORATORY Immature Gran % 1.00 % [facility] LABORATORY Comment: Immature [...] Organization Address City/State/ZIP [place] [address] (ABNORMAL) Hemogram (01/30/2022 7:19 AM EDT) Analysis Performed At Patho logist Time Signature WBC 6.8 4.0 - 9.5 [facility] x10(3)/[facility] LABORATORY RBC 4.32 (L) 4.58 - [facility] 5.54 [facility] x10(6)/[facility] LABORATORY Hemoglobin 13.0 (L) 13.7 - [facility] 16.[facility] g/dL [facility] LABORATORY Hematocrit 39.8 (L) 40.5 - [facility] 48.5 % [facility] LABORATORY MCV 92.1 82.9 - [facility] 93.1 fL [facility] LABORATORY MCH 30.1 27.5 - [facility] 32.1 pg [facility] LABORATORY MCHC 32.7 32.0 - [facility] 35.7 g/dL [facility] LABORATORY Platelets 172 145 - 357 [facility] x10(3)/[facility] LABORATORY RDWSD 54.5 (H) 36.0 - [facility] 45.0 [facility] LABORATORY RDWCV 16.2 (H) 11.4 - [facility] 13.8 % [facility] LABORATORY MPV 9.0 7.6 - 12.9 [facility] LABORATORY nRBC % Auto 0.0 % [facility] LABORATORY nRBC Abs Auto 0.000 0.000 - [facility] 0.000 [facility] x10(3)/[facility] LABORATORY Specimen Anatomical Collection Method Collection Time Receive d Time (Source) Location / / Volume Laterality Blood 01/30/2022 7:19 AM 7:21 EDT AM EDT Resulting Agency Comment Spec In Lab Zulma BROWN HEMATOLOGY ORDERABLES Performing Organization Address City/State/ZIP [place] [address] (ABNORMAL) Basic Metabolic Panel (non-fasting) (01/30/2022 7:19 AM EDT) P athologist Signature Glucose Lvl 237 (H) 65 - 199 [facility] mg/dL [facility] LABORATORY Comment: Diabetes: >=200 mg/dL plus symp toms BUN 34 (H) 10 - 20 mg/dL [facility] LABORATORY Creatinine 1.45 0.80 - 1.50 [...] 15 mmol/L [facility] LABORATORY Calcium 9.5 8.5 - 10.5 mg/dL [facility] LABORATORY Estimated GFR 50 (L) [...] City/State/ZIP Code Phon e Number [place] [phone] HOSPITAL LAB[address]ORY [address] documented in this encounter Visit Diagnoses Diagnosis ASCVD (arteriosclerotic cardiovascular d isease) Unspecified cardiovascular disease documented in this encounter Care Teams Supervisor Taping Relationship Specialty Start Date End Date Lovely Vicente MD PCP - General 04/16/[address] [place] [address] documented as of this encounter
--- OUTSIDE RECORDS SUMMARY | 2022-04-15 08:15 | XMS_ITS | Encounter Summary ---
:1945 [place] [address] Care Team Providers Name Role Phone Lovely Vicente MD Primary Care Provider Reason for Visit Reason Onset Date Comments Follow-up 03/06/2022 Dave Bueno Encounter Details Date Type Department Care Team Description 03/06/2022 Telephone Cardiology at [facility] Martha Comer, Follow-up ([facility] VAM[facility] Start) [place] [address] Social History Tobacco Use Types Packs/Day [...] pt had gotten his labs done at [facility] yesterday. Results received, scanned and entered into [...] Cardiology Zulma Dolan MD [facility] [address] [place], [place] [address] (Wo rk) 05/28/2022 Laboratory Appointment Lab 05/28/2022 Office Visit Cardiology Zulma Dolan MD [facility] [place] [address] Liz Poole PA [facility] [place] [address] 06/10/2022 Office Visit Dermatology Laura Scherer MD [facility] [address] [place], [place] [address] (Wo rk) documented as [...] filedocumented in this encounter Care Teams Reservations And Ticketing Agent Relationship Specialty Start Date End Date Lovely Vicente MD PCP - General 04/16/[address] [place] [address] documented as of this encounter
--- OUTSIDE RECORDS SUMMARY | 2022-04-15 08:15 | XMS_ITS | Encounter Summary ---
:1945 Author Organization [place] [address] Care Team Providers Name Role Phone Lovely Vicente MD Primary Care Provider Encounter Details Date Type Department Care Team Description 03/26/2022 Office Visit Cardiology at [facility] Vitaliy Nobles MD Chronic systolic heart failure; [facility] ONE MEDICAL ASCVD (ar teriosclerotic cardiovascular disease); [facility], ischemic [place], [place] CARDIOLOGY [address] [place] [address] [phone] Social History Tobacco Use Types Packs/Day Years [...] from the original note were not included. [facility] [place] [address] CARDIOLOGY OUTPATIENT CLINIC VISIT [facility] Don Mccollum Kushal 03/26/2022 Referring Providers: MD Jules Cr Joyce, MD [address] [place] [address] CHIEF COMPLAINT: I am doing well CARDIAC-RELEVANT [...] using a 2.0 x 26 mm ORION [place] TUCKER stent. This completes therevascularization of all [...] in [address] Lovely Vicente MD [address] [place] [id number] HISTORY OF PRESENT ILLNESS: Don Fatima is [...] using a 2.0 x 26 mm ORION [place] TUCKER stent. This completes the revascularization of [...] SETUP performed by Manny Mcknight MD at [facility] OR ??? PRO AMPUTATION FOOT, TRANSMETATARSAL Right 08/09/2017 AMPUTATION, TRANSMETATARSAL (WRVU 12.71) performed by Yonathan Smith MD at [facility] OR ??? PRO CABG, ARTERIAL, SINGLE N/A 07/07/2017 @CABG, USING ARTERIAL GRAFT;SINGLE ARTERIAL GRAFT (WRVU 33.75) performed by Yuan Retana MD at [facility] OR ??? PRO CABG, ARTERY-VEIN, TWO N/A 07/07/2017 @CABG, TWO VENOUS GRAFTS & ARTERIAL GRAFT (WRVU 7.93) performed by Yuan Retana MD at [facility] OR ??? PRO COLONOSCOPY, REMV LESN, SNARE 01/16/2014 COLONOSCOPY, POLYPECTOMY, REMOVAL LESION BY SNARE performed by Nohemi Jaimes MD at [facility] ??? PRO DRESSING CHANGE UNDER ANESTHESIA Right 08/11/2017 (MSURG) DRESSING CHANGE (FOR OTHER THAN IVAN) UNDER ANES. (WRVU 0.86) performed by Lamar Smith MD at [facility] OR ??? PRO ENDOSCOPY W/VIDEO-ASST VEIN HARVEST, CABG Right 07/07/2017 ENDOSCOPIC HARVEST VEIN(S) FOR CABG (WRVU 0.31) performed by Yuan Retana MD at [facility] OR ??? PRO PERC TRLUML CORONARY STENT W/ANGIO ONE ART/BRANCH N/A 01/30/2022 STENT PLACEMENT-SINGLE MAJOR CORONARY ARTERY OR BRANCH performed by Vitaliy Nobles MD at [facility] ??? PRO THYROIDECTOMY 03/28/2013 THYROIDECTOMY, TOTAL OR COMPLETE performed by Manny Mcknight MD at [facility] OR SOCIAL HISTORY: reports that [...] using a 2.0 x 26 mm ORION [place] TUCKER stent. This completes the revascularization of [...] Sincerely, Dr. Vitaliy Nobles MD [facility] Psychiatric Social Worker Supervisor Interventional Cardiology 03/26/2022 CC: Lovely Vicente MD [...] per DC Summary - Admitted to [facility] on 12/08/21, transferred from [facility], respiratory distress with hypoxia 86% on [...] (DAPT) Recommendations above ? TTE from [facility] 12/08/21 ?? 07/28/2019 Echocardiogram: SUMMARY: 1. [...] regurgitation present. 07/07/2019 - 07/21/2019 Zio Patch Pantograph Transferrer The patient had a minimum heart rate [...] 12.5 mg daily 6. Post-op atrial fibrillation [id number] (CHF, HTN, DM, vascular disease, thromboembolism) Eliquis 7. PAD 08/06/2017: Right 1st, 2nd, 3rd toe amputation 08/11/2017: Left??femoral arterial access, RLE??angiogram, Balloon angioplasty of R PT 10/25/2017: right popliteal-pedal bypass at [facility] 8. Hypothyrodism S/p thyroidectomy for goiter Levothyroxine ?? Plan: 3 months in clinic with labs and TTE Liz Poole PA-C 03/26/2022 documented in this encounter Plan of Treatment Upcoming Encounters Date Type Specialty Care Team Description 05/28/2022 Appointment Cardiology Zulma Dolan MD [facility] [place] [address] (Wo rk) 05/28/2022 Laboratory Appointment Lab 05/28/2022 Office Visit Cardiology Zulma Dolan MD [facility] [place] [address] Liz Poole PA [facility] [place] [address] 06/10/2022 Office Visit Dermatology Laura Scherer MD [facility] [address] [place], [place] [address] (Wo rk) documented as of this encounter Visit Diagnoses Diagnosis Chronic systolic heart failure ASCVD (arteriosclerotic cardiovascular d isease) Unspecified cardiovascular disease Cardiomyopathy, ischemic Other specified forms of chronic ischemi c heart disease documented in this encounter Care Teams Lead Generator Relationship Specialty Start Date End Date Lovely Vicente MD PCP - General 04/16/[address] [place] [address] documented as of this encounter
--- OUTSIDE RECORDS SUMMARY | 2022-04-15 08:15 | XMS_ITS | Encounter Summary ---
:1945 Author Organization [facility] Address [facility] [place] [address] Care Team Providers Name Role Phone Lovely Vicente MD Primary Care Provider Reason for Visit Reason Comments Prior Authorization Entresto 24-26mg tablets Encounter Details Date Type Department Care Team Description 02/20/2022 Specialty Pharmacy Pharmacy at [facility] Lamberto Smith Prior Authorization [facility] J (Entresto 24-26mg Drive tablets) [place] [id number] Social History Tobacco Use Types Packs/Day Years [...] Don Fatima Patient : 1945 Patient Address: [address] [place] [address] [place] [address] (home) Medication Name: ENTRESTO 24 MG-26 MG TABLET Medication ID: [id number] Patient Location: [facility] CARDIOLOGY 4A Patient Location Comment: Medication Strength Frequency Requested: Entresto 24-26mg tablets / One tablet twice daily Qty/Day Supply: New Start: New to Therapy Diagnosis & ICD-10 Code: Chronic systolic heart failure, I50.22 Subscriber Insurance: [place] [employer] [facility] Subscriber Insurance Comment: Fax: Physician: LIZ CARRERA Physician Comment : PA Status: NO PA REQUIRED Insurance mandated Pharmacy: Unknown Fillable at [facility]: Yes Insurance requirements/notes: None Copay: $119.01 (goes to coverage gap/odalys monteiro) Copay assistance: [employer]give Copay assistance comment: If cost isn't affordable, then we'll suggest enrollment in the currently open [facility] Heart Failure zoila, which provides up to $1000 in copay assistance. If zoila closes, or doesn't work out, then the patient can attempt enrollment in the v/stol landing signal officer assistance program, the [employer] Patient Assistance [employer] (NPAF). At which point we'd refer to [facility] for assistance with enrollment. Pharmacy staff [...] Cardiology Zulma Dolan MD [facility] [address] [place] [address] (Wo rk) 05/28/2022 Laboratory Appointment Lab 05/28/2022 Office Visit Cardiology Zulma Dolan MD [facility] [place] [address] Liz Carrera PA [facility] [place] [address] 06/10/2022 Office Visit Dermatology Laura Scherer MD [facility] ER DR [address] [place], [place] [address] (Wo rk) documented as of this encounter Visit Diagnoses Not on filedocumented in this encounter Care Teams Dietitian Teacher Relationship Specialty Start Date End Date Lovely Vicente MD PCP - General 04/16/[address] [place] [address] documented as of this encounter
--- OUTSIDE RECORDS SUMMARY | 2022-04-15 08:15 | XMS_ITS | Encounter Summary ---
:1945 Author Organization [facility] [place] [address] Care Team Providers Name Role Phone Lovely Vicente MD Primary Care Provider Reason for Referral Diagnostic Test (Routine) - New Request Specialty Diagnoses / Procedures Referred By Contact Refer red To Contact Cardiology Diagnoses Chronic systolic heart failure Liz Carrera PA [facility] Non-Inv Card Lab Procedures Echocardiogram Transthoracic [facility] [place] [address] [place] [address] Fax: Referral ID Status Reason Start Expiration Visits Visits Date Date Requested Authorized [id number] New Request Specialty 02/19/2022 02/19/2023 1 1 Service Requested Encounter Details Date Type Department Care Team Description 02/19/2022 Office Visit Cardiology at [facility] Liz Carrera, Chronic systolic heart [facility] [place] [address] Cardiology Dept [phone] [place], [place] [address] Social History Tobacco Use Types [...] [facility], transferred from [facility], respiratory distress with hypoxia 86% on RA. [...] mg PO daily in place of Lasix. [place] is new for him and he will [...] his PCP. He started [facility] rehab in [facility]. Monitored vitals/trends at home: Weight 191-194 [...] above ? TTE from [facility] 12/08/21 ?? 07/28/2019 Echocardiogram: SUMMARY: 1. The [...] regurgitation present. 07/07/2019 - 07/21/[address] Engineer The patient had a minimum heart [...] 12.5 mg daily 6. Post-op atrial fibrillation [id number] (CHF, HTN, DM, vascular disease, thromboembolism) [...] Cardiology Zulma Dolan MD [facility] [place], [place] [address] (Wo rk) 05/28/2022 Laboratory Appointment Lab 05/28/2022 Office Visit Cardiology Zulma [place]olan [place] [address] Liz Carrera PA [facility] [place] [address] 06/10/2022 Office Visit Dermatology Laura Scherer MD [facility] DR [address] [facility] [place] [place] [address] (Wo rk) Scheduled Orders Name [...] 107 mmol/L [facility] CO2 31 22 - 31 mmol/L [facility] Anion Gap 11 5 - 15 mmol/L [facility] Calcium 9.7 8.5 - 10.5 mg/dL [facility] Estimated GFR 47 (L) >=60 mL/min/1.73 m?? [facility] Comment: This patient's estimated GFR [...] City/State/ZIP Code Phon e Number [place] [phone] (ABNORMAL) pro-Brain Natriuretic Peptide [...] [facility]/[place] [address] documented in this encounter Visit Diagnoses Diagnosis Chronic systolic heart failure documented in this encounter Care Teams Biomass Power Plant Manager Relationship Specialty Start Date End Date Lovely Vicente MD PCP - General 04/16/[address] [place] [address] documented as of this encounter
--- OUTSIDE RECORDS SUMMARY | 2022-04-15 08:15 | XMS_ITS | Encounter Summary ---
:1945 Author Organization [facility] Address [facility] [place] [address] Care Team Providers Name Role Phone Lovely Vicente MD Primary Care Provider Reason for Visit Reason Onset Date Comments Medication Refill 04/09/2022 Jardiance Encounter Details Date Type Department Care Team Description 04/09/2022 Refill Cardiology [place] [facility] Liz Poole PA Medication Refill [facility] (Ja rdiance) [place] [address] Cardiology Dept [phone] [place], [place] [address] (Wo rk) Social History Tobacco [...] [facility] er [address] [place] [address] (Wo rk) 05/28/2022 Laboratory Appointment Lab 05/28/2022 Office Visit Cardiology Zulma Dolan MD [facility] [place] [address] Liz Poole PA [facility] [place] [address] 06/10/2022 Office Visit Dermatology Laura Scherer MD [facility] ER DR [address] [place], [place] [address] (Wo rk) documented as of this encounter Visit Diagnoses Diagnosis Chronic systolic heart failure documented in this encounter Care Teams Heddler Tier Relationship Specialty Start Date End Date Lovely Vicente MD PCP - General 04/16/[address] [place] [address] documented as of this encounter
--- OUTSIDE RECORDS SUMMARY | 2022-04-15 08:15 | XMS_ITS | Encounter Summary ---
:1945 Author Organization [facility] Address [facility] [place] [address] Care Team Providers Name Role Phone Lovely Vicente MD Primary Care Provider Reason for Visit Auth/Cert Specialty Diagnoses / Procedures Referred By Contact Refer red To Contact Diagnoses ASCVD (arteriosclerotic cardiovascular disease) [I25.10] Vitaliy Nobles MD [facility] Procedures PRO PERC TRLUML CORONARY STENT W/ANGIO ONE ART/BRANCH CARDIAC CATHETERIZATION STENT PLACEMENT-SINGLE MAJOR CORONARY ARTERY OR BRANCH [facility] [place] [address] Referral ID Status Reason Start Date Expiration Date Visits Requ ested Visits Authorized [id number] 1 1 Encounter Details Date Type Department Care Team Description 01/30/2022 Surgery Red[facility] Gunner Asa Coulter MD CARDIAC CATHETERIZATION [facility] [place] [address] [place] [address] [phone] (Wo rk) Social History Tobacco Use Types [...] and Clopidogrel. Please follow up with your channel machine operator in the next 4-6 weeks. We have made a referral to cardiac rehab. Please see the attached instructions regarding care to your right wrist access site. AttachmentsThe following attachments cannot be sent through Care Everywhere. Coronary Angiogram: Post-op (Chilean)documented in this encounter Medications at Time of [...] J, RN - 01/30/2022 4:54 PM EDT [facility] Short Stay Unit Discharge Note All [...] SSU team Don has history of prior FL and CABG. I had referred him to cardiac rehab at [facility] last month per HF team. He was waiting until this intervention before starting the program. Reviewed managing angina /use of sl nitroglycerin. Given parameters for home exercise. 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 We discussed short walks several times per day. Will send [facility] his discharge summary from this admission. The patient should be contacted by the Program within 1- 2 weeks from discharge. Brief Op Note - Vitaliy Nobles MD - 01/30/2022 10:19 AM EDT Images from the original note were not included. [facility] [place] [address] CORONARY ANGIOGRAM AND PERCUTANEOUS CORONARY INTERVENTION REPORT Patient: Don Fatima : 1945 MR number: [id number] Date of Service: 01/30/2022 [employer] Practitioner: Vitaliy Nobles MD Fellow: KEYON Elizabeth INDICATION: [...] a long 2.0 x 26 mm HARDEEP [place] TUCKER stent and positioned it at the [...] using a 2.0 x 26 mm HARDEEP [place] TUCKER stent. This completes the revascularization ofall [...] [facility] er [address] [place] [address] (Wo rk) 05/28/2022 Laboratory Appointment Lab 05/28/2022 Office Visit Zulma Garrison MD [facility] [place] [address] Liz Poole PA [facility] [place] [address] 06/10/2022 Office Visit Dermatology Laura Scherer MD [facility] ER DR [address]-[facility] [facility] [place] [address] (Wo rk) Scheduled Orders Name Type [...] LABORATORY Neutr Abs (ANC) 3.96 1.70 - [facility] 6.10 [facility] x10(3)/[facility] LABORATORY Lymphocytes % 16.3 % [facility] LABORATORY Lymphocytes Abs 0.9 0.9 - 3.2 [facility] x10(3)/[facility] LABORATORY Monocytes % 10.0 % [facility] LABORATORY Monocyte Abs 0.6 0.3 - 0.9 [facility] x10(3)/[facility] LABORATORY Eosinophils % 0.5 % [facility] LABORATORY Eosinophils Abs 0.0 0.0 - 0.4 [facility] x10(3)/[facility] LABORATORY Basophils % 0.5 % [facility] LABORATORY Basophils Abs 0.0 0.0 - 0.1 [facility] x10(3)/[facility] LABORATORY Immature Gran % 0.90 [...] Organization Address City/State/[place] [address] (ABNORMAL) Hemogram (01/30/2022 2:12 PM EDT) Analysis Performed At Patho logist Time Signature WBC 5.5 4.0 - 9.5 [facility] x10(3)/[facility] LABORATORY RBC 4.30 (L) 4.58 - [facility] 5.54 [facility] x10(6)/[facility] LABORATORY Hemoglobin 12.7 (L) 13.7 - [place] 16.5 g/dL [facility] LABORATORY Hematocrit 39.4 (L) 40.5 - [place] 48.5 % [facility] LABORATORY MCV 91.6 82.9 - [place] 93.1 [facility] LABORATORY MCH 29.5 27.5 - [place] 32.1 pg [facility] LABORATORY MCHC 32.2 32.0 - [place] 35.7 g/dL [facility] LABORATORY Platelets 172 145 - 357 [facility] x10(3)/[facility] LABORATORY RDWSD 54.5 (H) 36.0 - [place] 45.0 [facility] LABORATORY RDWCV 16.4 (H) 11.4 - [place] 13.8 % [facility] LABORATORY MPV 9.2 7.6 - 12.9 [place] [facility] LABORATORY nRBC % Auto 0.0 % [facility] LABORATORY nRBC Abs Auto 0.000 0.000 - [place] 0.000 [facility] x10(3)/[facility] LABORATORY Specimen Anatomical Collection Method Collection Time Receive d Time (Source) Location / / Volume Laterality Blood 01/30/2022 2:12 PM 2 2:37 EDT PM EDT Resulting Agency Comment Spec In Lab Eddi Elizabeth Jr., MD HEMATOLOGY ORDERABLES Performing Organization Address City/State/[place] [address] (ABNORMAL) Basic Metabolic Panel (non-fasting) (01/30/2022 2:12 PM EDT) athologist Signature Glucose Lvl 163 65 - 199 [facility]dL [facility] LABORATORY Comment: Diabetes: >=200 mg/dL plus symp toms BUN 30 (H) 10 - 20 mg/dL [facility] LABORATORY Creatinine 1.47 0.80 - 1.50 mg/dL [facility] [...] Organization Address City/State/[place] [address] POCT Glucose (01/30/2022 1:41 PM EDT) athologist Signature POC Glucose 148 65 - 199 [facility] mg/dL [facility] LABORATORY Comment: [...] City/[facility]/ZIP Code Phon e Number [address] POCT Glucose (01/30/2022 10:48 AM EDT) P athologist Signature POC Glucose 193 65 - 199 [facility] LABOR[facility]ORY Comment: Supplemental ranges: <140 mg/dL before meals <180 mg/dL all other times of the day Specimen Anatomical Collection Method Collection Time Receive d Time (Source) Location / / Volume Laterality Blood 01/30/2022 10:48 01/30/2022 AM EDT 10:48 AM EDT Vitaliy Nobles MD POINT OF CARE TEST ORDERABLE S Performing Organization Address [facility] [place] [address] EKG 12 Lead (01/30/2022 10:33 AM EDT) Component Value Ref Range Test Analysis Performed Pathologis t Method Time At Signature Ventricular rate 64 BPM MUSE SYSTEM Atrial Rate 64 BPM MUSE SYSTEM P-R Interval 162 ms MUSE SYSTEM QRS Duration 94 ms MUSE SYSTEM Q-T Interval 422 ms MUSE SYSTEM QTC Calculated 435 ms MUSE SYSTEM (Bezet) Calculated P [place] 41 degrees MUSE SYSTEM Calculated R [place] -27 degrees MUSE SYSTEM Calculated T [place] 104 degrees MUSE SYSTEM INTERPRETATION Normal sinus rhythm MUSE SYSTEM Anterolateral infarct (cited on or before 09-DEC-2021) Abnormal ECG When compared with ECG of 10-DEC-2021 11:17, No significant change was found Confirmed by Gary Perez ([id number]) on 01/30/2022 5:57:5 2 PM Specimen Anatomical Collection Method Collection Time Receive d Time (Source) Location / / Volume Laterality 01/30/2022 10:33 01/30/2022 5:57 AM EDT PM EDT Vitaliy Nobles MD ECG ORDERABLES Performing Organization Address City/[facility]/ZIP Code Phon e Number MUSE SYSTEM CARDIAC CATHETERIZATION (01/30/2022 10:16 AM EDT) Anatomical Region Laterality Modality Other Specimen (Source) Anatomical Location Collection Method / Collectio n Time Received Time / Laterality Volume Narrative 01/30/2022 2:09 PM EDT ?[facility] ? Cardiac Cathete rization/Intervention Report ? Patient Name: Don Fatima. ? Procedure Date: 01/30/2022 ? A #: [id number] ? Primary Physician: Nobles, Vitaliy P ? Case #: [id number] ? File Name: [id number] ? Catheterization Order Number: [id number] ? [facility] ? Final Report [place], [place] ? Patient Name: ? Don E. Stewa rt ? ID#: ?[id number] ? : ?1945 ? Procedure Date: ? [...] was Urgent. The indication for ?the laborer bituminous paving visit is stable kn own CAD. Chest [...] guiding catheter an d a 3.[address] [facility] [address] ??20 Mhz ?using Manual pullback. ??Imagin [...] A premounted 2.00 x 26 mm Hardeep [place] (TUCKER) ? was deployed wi a maximum [...] Wedelivered along 2.0 x 26 mm HARDEEP [place] ? TUCKER stent and p ositioned it [...] administered prior to arrival in the laborer bituminous paving. ?Recommended anti-platelet/anti- thrombotic regimen: ?Continue aspirin 81 [...] may require ?modification of this regimen. [facility] ?questions. ?The 1 [...] using a 2.0 x 26 mm HARDEEP [place] TUCKER stent. ?This completes the revasculariz ation [...] Procedure Note Vitaliy Nobles MD - 03/06/2022 [facility] Cardiac Catheterization/Intervention Re port Patient Name: Don Fatima Procedure Date: 01/30/2022 A #: [id number] Primary Physician: Vitaliy Nobles Case #: [id number] File Name: [id number] Catheterization Order Number: [id number] [facility] [place], [place] Patient Name: Don Fatima ID#: [...] was Urgent. The indication for the laborer bituminous paving visit is stable known CAD. Chest pain [...] 1.5 guiding catheter and a 3.[address] [facility] [address] 20 Mhz using Manual pullback. Imaging [...] A premounted 2.00 x 26 mm Hardeep [place] (TUCKER) was deployed with a maximum inflation [...] along 2. 0 x 26 mm HARDEEP [place] TUCKER stent and positioned it at the [...] prior t o arrival in the laborer bituminous paving. Recommended anti-platelet/anti-thrombot ic regimen: Continue aspirin 81 [...] modification of this regimen. Consult D [facility] Interventional Cardiology [...] using a 2.0 x 26 mm HARDEEP [place] TUCKER stent. This completes the revascularization of [...] POC Glucose 212 (H) 65 - 199 [facility] mg/dL [facility] LABORATORY Comment: [...] City/State/[place] [address] (ABNORMAL) POCT Glucose (01/30/2022 8:10 AM EDT) athologist Signature POC Glucose 224 (H) 65 - 199 [facility] mg/dL [facility] LABORATORY Comment: [...] City/State/[place] [address] documented in this encounter Visit Diagnoses Diagnosis ASCVD (arteriosclerotic cardiovascular d isease) Unspecified cardiovascular disease 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 ASHD (arteriosclerotic heart disease) Coronary atherosclerosis of unspecified type of vessel, iroquois or graft ASCVD (arteriosclerotic cardiovascular d isease) Unspecified cardiovascular disease documented in this encounter Admitting Diagnoses Diagnosis CAD (coronary artery disease) Coronary atherosclerosis of unspecified type of vessel, iroquois or graft documented in this encounter Administered [...] Given 02/2022 10:11 AM EDT 100 mcg (HOME HEALTH NURSE LICENSED PRACTICAL) ONCE PRN, Starting on Wed01/30/22 at 0927, [...] Procedure), Routine niCARdipine (Cardene) (100 mcg/mL) dilution (HOME HEALTH NURSE LICENSED PRACTICAL) (CANCELED ) 0927 (Given - Provider: Vitaliy [...] (Intra-Procedure) documented in this encounter Care Teams Scrap Collector Relationship Specialty Start Date End Date Lovely Vicente MD PCP - General 04/16/[address] [place] [address] documented as of this encounter
--- OUTSIDE RECORDS SUMMARY | 2022-04-15 08:15 | XMS_ITS | Encounter Summary ---
:1945 Author Organization [facility] [place] [address] Care Team Providers Name Role Phone Lovely Vicente MD Primary Care Provider Reason for Visit Reason Onset Date Comments Follow-up 02/23/2022 Medication adjustmen t and new med Encounter Details Date Type Department Care Team Description 02/23/2022 Telephone Cardiology at [facility] Martha Comer, Follow-up ([facility] RN adjustbrandon t and new med) [place] [address] Social History Tobacco Use Types Packs/Day [...] & with the following response from STEPHANIE Poloe: Yes, please repeat. ??I placed the order for BMP and sent to [facility]. will call [facility] to make an appointment for next [...] tablet) daily. She will correct his pill urban and regional planner to the new dose. Will need to check with STEPHANIE Poole about repeat BMP to recheck K+ level. If yes he will get the test done at [facility]. They are aware that he will need to make an appt at [facility] to get the test done. Entresto: [...] if he qualifies for assistance from the [employer]. She is thankful for the assistance, as he is taking insulin that is very expensive too. Instructed to call this internal communications writer, if he does qualify for assistance from [employer] and that he has gotten the medication [...] Zulma Dolan MD [facility] [place], [place] [address] (Wo rk) 05/28/2022 Laboratory Appointment Lab 05/28/2022 Office Visit Cardiology Zulma Dolan MD [facility] [place] [address] Liz Poole PA [facility] [place] [address] 06/10/2022 Office Visit Dermatology Laura Scherer MD [facility] DR TEJA GR[address]MAT [place], [place] [address] (Wo rk) documented as of this encounter Visit Diagnoses Not on filedocumented in this encounter Care Teams Nursing Department Chairperson Relationship Specialty Start Date End Date Lovely Vicente MD PCP - General 04/16/[address] [place] [address] documented as of this encounter
--- OUTSIDE RECORDS SUMMARY | 2022-04-15 08:15 | XMS_ITS | Encounter Summary ---
:1945 Author Organization [facility] [address] Care Team Providers Name Role Phone Lovely Vicente MD Primary Care Provider Encounter Details Date Type Department Care Team Description 02/24/2022 Notes Only [place] [address] Social History Tobacco Use Types Packs/Day [...] return to the Medication Assistance Program. The [facility] office will follow up with the patient in 5 business days to see if the patient has received the application and if they have any questions. documented in this encounter Plan of Treatment Upcoming Encounters Date Type Specialty Care Team Description 05/28/2022 Appointment Cardiology Zulma Dolan MD [facility] [place] [address] (Wo rk) 05/28/2022 Laboratory Appointment Lab 05/28/2022 Office Visit Cardiology Zulma Dolan MD [facility] [place] [address] Liz Poole PA [facility] [place] [address] 06/10/2022 Office Visit Dermatology Laura Scherer MD [facility] ER DR TEJA GR[address]DERMAT [place], [place] [address] (Wo rk) documented as of this encounter Visit Diagnoses Not on filedocumented in this encounter Care Teams Multi Disciplined Language Analyst Relationship Specialty Start Date End Date Lovely Vicente MD PCP - General 04/16/[address] [place] [address] documented as of this encounter
--- OUTSIDE RECORDS SUMMARY | 2022-04-15 08:15 | XMS_ITS | Encounter Summary ---
:1945 Author Organization [facility] [place] [address] Care Team Providers Name Role Phone Lovely Vicente MD Primary Care Provider Reason for Visit Reason Comments Medication Refill Encounter Details Date Type Department Care Team Description 04/07/2022 Refill Cardiology at [facility] Janneth Padilla PA Medication Refill [facility] [place] [address] CARDIOLOGY DEPT. [phone] [place], [place] [address] (Wo rk) Social History Tobacco [...] MD [facility] er [place], [place] [address] (Wo rk) 05/28/2022 Laboratory Appointment Lab 05/28/2022 Office Visit Cardiology Zulma Dolan MD [facility] [address] Liz Poole PA [facility] [place] [address] 06/10/2022 Office Visit Dermatology Laura Scherer MD [facility] [address] TE[address] GR[address]DERMAT [place], [place] [address] (Wo rk) documented as of this encounter Visit Diagnoses Not on filedocumented in this encounter Care Teams Automotive Artist Relationship Specialty Start Date End Date Lovely Vicente MD PCP - General 04/16/[address] [place] [address] [address] [place] [address] documented as of this encounter
--- OUTSIDE RECORDS SUMMARY | 2022-04-15 08:15 | XMS_ITS | Encounter Summary ---
:1945 Author Organization [facility] [place] [address] Care Team Providers Name Role Phone Lovely Vicente MD Primary Care Provider Reason for Visit Reason Onset Date Comments Medication Refill 03/11/2022 Encounter Details Date Type Department Care Team Description 03/06/2022 Refill Cardiology at [facility] Liz Poole PA Medication Refill [facility] Jorge mcnamara [facility] [place] [address] Cardiology Dept [phone] [place], [place] [address] (Wo rk) Social History Tobacco [...] [facility] [address] [place], [place] [address] (Wo rk) 05/28/2022 Laboratory Appointment Lab 05/28/2022 Office Visit Cardiology Zulma Dolan MD [facility] [place] [address] Liz Poole PA [facility] [place] [address] 06/10/2022 Office Visit Dermatology Laura Scherer MD [facility] ER DR TEJA GR-DERMAT [place], [place] [address] (Wo rk) documented as of this encounter Visit Diagnoses Not on filedocumented in this encounter Care Teams Curriculum Specialist Relationship Specialty Start Date End Date Lovely Vicente MD PCP - General 04/16/[address] [place] [address] documented as of this encounter
--- OUTSIDE RECORDS SUMMARY | 2022-04-15 08:15 | XMS_ITS | Encounter Summary ---
:1945 Author Organization [facility] [place] [address] Care Team Providers Name Role Phone Lovely Vicente MD Primary Care Provider Encounter Details Date Type Department Care Team Description 02/24/2022 Orders Only Cardiology at [facility] Liz Poole, Chronic systolic heart [facility] [place] [address] Cardiology Dept [place], [place] [address] Social History Tobacco Use Types [...] MD [facility] er [place], [place] [address] (Wo rk) 05/28/2022 Laboratory Appointment Lab 05/28/2022 Office Visit Cardiology Zulma Dolan MD [facility] [place] [address] Liz Poole PA [facility] [place] [address] 06/10/2022 Office Visit Dermatology Larua Scherer MD [facility] ER DR TEJA GR[address]DERMAT [place], [place] [address] (Wo rk) documented as of this encounter Visit Diagnoses Diagnosis Chronic systolic heart failure documented in this encounter Care Teams Pie Topper Relationship Specialty Start Date End Date Lovely Vicente MD PCP - General 04/16/[address] [place] [address] documented as of this encounter
--- OUTSIDE RECORDS SUMMARY | 2022-04-15 08:16 | XMS_ITS | Encounter Summary ---
:1945 [place] [address] Care Team Providers Name Role Phone Lovely Vicente MD Primary Care Provider Encounter Details Date Type Department Care Team Description 12/30/2021 Notes Only [facility] [place] [address] Social History Tobacco Use Types Packs/Day [...] Failure team. DX: HFrEF. Referral placed to [facility] documented in this encounter Plan of Treatment Upcoming Encounters Date Type Specialty Care Team Description 05/28/2022 Appointment Cardiology Zulma Dolan MD [facility] [address] [place], [place] [address] (Wo rk) 05/28/2022 Laboratory Appointment Lab 05/28/2022 Office Visit Cardiology Zulma Dolan MD [facility] [place] [address] Liz Poole PA [facility] [place] [address] 06/10/2022 Office Visit Dermatology Laura Scherer MD [facility] ER DR [address]-DERMAT [place], [place] [address] (Wo rk) documented as of this encounter Visit Diagnoses Not on filedocumented in this encounter Care Teams Beet Topper Relationship Specialty Start Date End Date Lovely Vicente MD PCP - General 04/16/[address] [place] [address] documented as of this encounter
--- OUTSIDE RECORDS SUMMARY | 2022-04-15 08:16 | XMS_ITS | Encounter Summary ---
:1945 Author Organization [facility] [place] [address] Care Team Providers Name Role Phone Lovely Vicente MD Primary Care Provider Encounter Details Date Type Department Care Team Description 12/12/2021 Telephone Cardiology at [facility] [place] [address] Social History Tobacco Use Types Packs/Day [...] - 12/12/2021 11:36 AM EDT RTC to [facility] regarding pharmacists questions as to whether the [...] MD [facility] [address] [place] [address] (Wo rk) 05/28/2022 Laboratory Appointment Lab 05/28/2022 Office Visit Cardiology Zulma Dolan MD [facility] [address] Liz Poole PA [facility] [address] 06/10/2022 Office Visit Dermatology Laura Scherer MD [facility] DR TEJA GR[address]DERMAT [place], [place] [address] (Wo rk) documented as of this encounter Visit Diagnoses Not on filedocumented in this encounter Care Teams Steel Chipper Relationship Specialty Start Date End Date Lovely Vicente MD PCP - General 04/16/[address] [place] [address] documented as of this encounter
--- OUTSIDE RECORDS SUMMARY | 2022-04-15 08:16 | XMS_ITS | Encounter Summary ---
:[address] [facility] [place] [address] Care Team Providers Name Role Phone Lovely Viecnte MD Primary Care Provider Encounter Details Date Type Department Care Team Description 01/28/2022 Orders Only Warehouse Sorter Zulma Finch ASCVD (art eriosclerotic [facility] cardiovascular disease) [facility] [place] [address] [place], [place] [phone] (Work) [phone] Social History Tobacco Use Types Packs/Day Years [...] MD [facility] [address] [place] [address] (Wo rk) 05/28/2022 Laboratory Appointment Lab 05/28/2022 Office Visit Cardiology Zulma Dolan MD [facility] [place] [address] [facility] [place] [address] 06/10/2022 Office Visit Dermatology Laura Scherer MD [facility] [address] [place], [place] [address] (Wo rk) documented as of this encounter Results (ABNORMAL) Basic Metabolic Panel (non-fasting) (01/30/2022 7:19 AM EDT) athologist Signature Glucose Lvl 237 (H) 65 - 199 [facility] mg/dL [facility] Comment: Diabetes: >=200 [...] Organization Address City/State/[place] [address] documented in this encounter Visit Diagnoses Diagnosis ASCVD (arteriosclerotic cardiovascular d isease) Unspecified cardiovascular disease documented in this encounter Care Teams Straightener Relationship Specialty Start Date End Date Lovely Vicente MD PCP - General 04/16/[address] [place] [address] documented as of this encounter
--- OUTSIDE RECORDS SUMMARY | 2022-04-15 08:16 | XMS_ITS | Encounter Summary ---
:1945 Author Organization [facility] [place] [address] Care Team Providers Name Role Phone Lovely Vicente MD Primary Care Provider Encounter Details Date Type Department Care Team Description 12/15/2021 Telephone Cardiology at [facility] [place] Barbara Mera, [place] [address] Social History Tobacco Use Types Packs/Day [...] Dolan MD [facility] [place], [place] [address] (Wo rk) 05/28/2022 Laboratory Appointment Lab 05/28/2022 Office Visit Cardiology Zulma Dolan MD [facility] [place] [address] Liz Poole PA [facility] [place] [address] 06/10/2022 Office Visit Dermatology Laura Scherer MD [facility] [address] [place], [place] [address] (Wo rk) documented as of this encounter Visit Diagnoses Not on filedocumented in this encounter Care Teams Tumbler Tender Relationship Specialty Start Date End Date Lovely Vicente MD PCP - General 04/16/15 [facility] [address] [place] [address] documented as of this encounter
--- OUTSIDE RECORDS SUMMARY | 2022-04-15 08:16 | XMS_ITS | Encounter Summary ---
:1945 Author Organization [facility] [place] [address] Care Team Providers Name Role Phone Lovely Vicente MD Primary Care Provider Encounter Details Date Type Department Care Team Description 12/24/2021 Orders Only Ob/Gyn Zulma Finch ASCVD (art eriosclerotic [facility] cardiovascular disease) [facility] [place] [address] [place], [place] [phone] (Work) [phone] Social History Tobacco Use Types Packs/Day Years [...] [place] [address] Liz Poole PA [facility] [place] [address] 06/10/2022 Office Visit Dermatology Laura Scherer MD [facility] [address] [place], [place] [address] (Wo rk) documented as of this encounter Visit Diagnoses Diagnosis ASCVD (arteriosclerotic cardiovascular d isease) Unspecified cardiovascular disease documented in this encounter Care Teams Dusting And Brushing Machine Operator Relationship Specialty Start Date End Date Lovely Vicente MD PCP - General 04/16/[address] [place] [address] documented as of this encounter
--- OUTSIDE RECORDS SUMMARY | 2022-04-15 08:16 | XMS_ITS | Encounter Summary ---
:1945 Author Organization [facility] [place] [address] Care Team Providers Name Role Phone Lovely Vicente MD Primary Care Provider Reason for Visit Reason Onset Date Comments Advice Only 01/28/2022 Encounter Details Date Type Department Care Team Description 01/28/2022 Telephone [place] [facility] [place] Chitra Angela, [place] [address] Social History Tobacco Use Types Packs/Day [...] Fatima assists patient with medications. Number for lab rn scheduling given and she will call them to verify this information Meds reviewed. As per our form from lab rn Eliquis hold for 48 hours prior. Pt [...] MD [facility] [address] [place], [place] [address] (Wo rk) 05/28/2022 Laboratory Appointment Lab 05/28/2022 Office Visit Cardiology Zulma Dolan MD [facility] [place] [address] Liz Poole PA [facility] [place] [address] 06/10/2022 Office Visit Dermatology Laura Scherer MD [facility] DR [address] [place], [place] [address] (Wo rk) documented as of this encounter Visit Diagnoses Not on filedocumented in this encounter Care Teams Mold Technician Relationship Specialty Start Date End Date Lovely Vicente MD PCP - General 04/16/[address] [place] [address] documented as of this encounter
--- OUTSIDE RECORDS SUMMARY | 2022-04-15 08:16 | XMS_ITS | Encounter Summary ---
:1945 Author Organization [facility] [address] Care Team Providers Name Role Phone Lovely Vicente MD Primary Care Provider Reason for Visit Reason Onset Date Comments Medication Refill 12/12/2021 Torsemide Encounter Details Date Type Department Care Team Description 12/12/2021 Refill Cardiology at [facility] Janneth Padilla, Medication Refill [facility] STEPHANIE (Torsemide) [place] [phone] CARDIOLOGY DEPT. [place], [place] [address] (Wo rk) Social History [...] Dolan MD [facility] [place], [place] [address] (Wo rk) 05/28/2022 Laboratory Appointment Lab 05/28/2022 Office Visit Cardiology Zulma Dolan MD [facility] [place] [address] Liz Poole PA [facility] [place] [address] 06/10/2022 Office Visit Dermatology Laura Scherer MD [facility] ER [address] [place], [place] [address] (Wo rk) documented as of this encounter Visit Diagnoses Diagnosis Chronic systolic heart failure documented in this encounter Care Teams Rn Supplemental Relationship Specialty Start Date End Date Lovely Vicente MD PCP - General 04/16/[address] [place] [address] documented as of this encounter
--- OUTSIDE RECORDS SUMMARY | 2022-04-15 08:16 | XMS_ITS | Encounter Summary ---
:1945 Author Organization [facility] [place] [address] Care Team Providers Name Role Phone Lovely Vicente MD Primary Care Provider Encounter Details Date Type Department Care Team Description 12/25/2021 Laboratory Appointment Lab 3L [facility] [place] [phone] Social History Tobacco Use Types Packs/Day Years [...] MD [facility] [place] [address] (Wo rk) 05/28/2022 Laboratory Appointment Lab 05/28/2022 Office Visit Cardiology Zulma Dolan MD [facility] [place] [address] Liz Poole PA [facility] [place] [address] 06/10/2022 Office Visit Dermatology Laura Scherer MD [facility] [address] [place] [address] (Wo rk) documented as of this encounter [...] (ABNORMAL) Differential, Automated (12/25/2021 7:46 AM EDT) [facility] gist Method Time Signature Neutrophils % 82.6 % [facility] Neutr Abs (ANC) 9.37 (H) 1.70 - [facility] 6.10 [facility] x10(3)/[facility] LABORATORY Lymphocytes % 7.1 % [facility] Lymphocytes Abs 0.8 (L) 0.9 - 3.2 [facility] x10(3)/[facility] LABORATORY Monocytes % 8.8 % [facility] Monocyte Abs 1.0 (H) 0.3 - 0.9 [facility] x10(3)/[facility] LABORATORY Eosinophils % 0.4 % [facility] Eosinophils Abs 0.0 0.0 - 0.4 [facility] x10(3)/[facility] LABORATORY Basophils % 0.4 % [facility] Basophils Abs 0.0 0.0 - 0.1 [facility] x10(3)/[facility] LABORATORY Immature Gran % 0.70 % [place] [...] Organization Address City/State/ZIP Code Phon e Number [place] [phone] HOSPITAL LAB[address] (ABNORMAL) Hemogram (12/25/2021 7:46 AM EDT) Analysis Performed At Patho logist Time Signature WBC 11.4 (H) 4.0 - 9.5 [facility] x10(3)/[facility] LABORATORY RBC 4.23 (L) 4.58 - [facility] 5.54 [facility] x10(6)/[facility] LABORATORY Hemoglobin 12.3 (L) 13.7 - [facility] 16.5 g/dL [facility] Hematocrit 37.7 (L) 40.5 - [facility] RYAN 48.5 % [facility] MCV 89.1 82.9 - [facility] RYAN 93.1 [facility] LABORATORY MCH 29.1 27.5 - [place] RYAN 32.1 pg [facility] MCHC 32.6 32.0 - [facility] 35.7 g/dL [facility] Platelets 215 145 - 357 [facility] x10(3)/[facility] LABORATORY RDWSD 49.8 (H) 36.0 - [place] RYAN 45.0 [facility] RDWCV 15.2 (H) 11.4 - [facility] RYAN 13.8 % [facility] MPV 9.2 7.6 - 12.9 [facility] LABORATORY nRBC % Auto 0.0 % [facility] nRBC Abs Auto 0.000 0.000 - [facility] 0.000 [facility] x10(3)/[facility] LABORATORY Specimen Anatomical Collection Method Collection Time Receive d Time (Source) Location / / Volume Laterality Blood 12/25/2021 7:46 AM 8:01 EDT AM EDT Resulting Agency Comment Spec In Lab Liz BROWN HEMATOLOGY ORDERABLES Performing Organization Address City/State/ZIP [place] [address] (ABNORMAL) Basic Metabolic Panel (non-fasting) (12/25/2021 7:46 AM EDT) P athologist Signature Glucose Lvl 272 (H) 65 - 199 [facility] mg/dL [facility] Comment: Diabetes: >=200 mg/dL plus symp toms BUN 62 (H) 10 - 20 mg/dL [facility] Creatinine 1.81 (H) 0.80 - 1.50 mg/dL [facility] Sodium 134 (L) 135 - 145 mmol/L [facility] Potassium 4.9 3.5 - 5.0 mmol/L [facility] Comment: Please note: ??Patients with WBC >100,00 0 may have falsely elevated Potassium levels. ??For accurate Potassium quantif ication in these patients send serum separator tube (gold top) for subsequent determinations. ??Contact the Clinical Chemistry Laboratory if there are any qu estions. Chloride 95 (L) 98 - 107 mmol/L [facility] CO2 28 22 - 31 mmol/L [facility] Anion Gap 11 5 - 15 mmol/L [facility] Calcium 9.4 8.5 - 10.5 mg/dL [facility] Estimated GFR 36 (L) >=60 mL/min/1.73 m?? [facility] [...] MD CHEMISTRY ORDERABLES Performing Organization Address City/[facility]/[place] [address] (ABNORMAL) pro-Brain Natriuretic Peptide (12/25/2021 7:46 AM EDT) P athologist Signature ProBNP 1,380 (H) <=124 [facility] pg/mL [facility] Specimen Anatomical Collection Method Collection Time Receive d Time (Source) Location / / Volume Laterality Blood 12/25/2021 7:46 AM 2 8:01 EDT AM EDT Resulting Agency Comment Spec In Lab Zulma Plunkett MD CHEMISTRY ORDERABLES Performing Organization Address City/[facility]/ZIP [facility] [place] [address] documented in this encounter Visit Diagnoses Diagnosis Chronic systolic heart failure documented in this encounter Care Teams Clinical Biostatistician Relationship Specialty Start Date End Date Lovely Vicente MD PCP - General 04/16/[address] [place] [address] documented as of this encounter
--- OUTSIDE RECORDS SUMMARY | 2022-04-15 08:16 | XMS_ITS | Encounter Summary ---
:1945 [place] [address] Care Team Providers Name Role Phone Lovely Vicente MD Primary Care Provider Encounter Details Date Type Department Care Team Description 12/25/2021 Office Visit Cardiology at [facility] Liz Poole, Chronic systolic heart [facility] [place] [address] Cardiology Dept [phone] [place], [place] [address] Social History Tobacco Use Types [...] As per DC Summary - Admitted to [facility] on 12/08/21, transferred from [facility], respiratory distress with hypoxia 86% [...] mg PO daily in place of Lasix. [place] is new for him and he will [...] Antiplatelet (DAPT) Recommendations above ? TTE from [facility] 12/08/21 ?? 07/28/2019 Echocardiogram: SUMMARY: [...] regurgitation present. 07/07/2019 - 07/21/2019 Zio Patch Evaporator Helper The patient had a minimum heart rate [...] hyperkalemia 4.9 today 6. Post-op atrial fibrillation [id number] (CHF, HTN, DM, vascular disease, thromboembolism) Eliquis 7. PAD 08/06/2017: Right 1st, 2nd, 3rd toe amputation 08/11/2017: Left??femoral arterial access, RLE??angiogram, Balloon angioplasty of R PT 10/25/2017: right popliteal-pedal bypass at [facility] 8. Hypothyrodism S/p thyroidectomy for goiter Levothyroxine ?? Plan: 1 month follow up with labs Liz Poole PA-C 12/25/2021 documented in this encounter Plan of Treatment Upcoming Encounters Date Type Specialty Care Team Description 05/28/2022 Appointment Cardiology Zulma Dolan MD [facility] [address] [place], [place] [address] (Wo rk) 05/28/2022 Laboratory Appointment Lab 05/28/2022 Office Visit Cardiology Zulma Dolan MD [facility] [place] [address] Liz Poole PA [facility] [place] [address] 06/10/2022 Office Visit Dermatology Laura Scherer MD [facility] ER DR [address] [place], [place] [address] (Mikayla alcaraz) documented as of this encounter Results (ABNORMAL) pro-Brain Natriuretic Peptide (12/25/2021 7:46 AM EDT) athologist Signature ProBNP 1,380 (H) <=124 [facility] Specimen Anatomical Collection Method Collection Time Receive d Time (Source) Location / / Volume Laterality Blood 12/25/2021 7:46 AM 8:01 EDT AM EDT Resulting Agency Comment Spec In Lab Zulma Plunkett MD CHEMISTRY ORDERABLES Performing Organization Address City/State/[place] [address] (ABNORMAL) Basic Metabolic Panel (non-fasting) (12/25/2021 7:46 AM EDT) athologist Signature Glucose Lvl 272 (H) 65 - 199 [facility] mg/dL [facility] Comment: Diabetes: >=200 mg/dL [...] Address City/State/[place] [address] documented in this encounter Visit Diagnoses Diagnosis Chronic systolic heart failure documented in this encounter Care Teams Compensation Analyst Relationship Specialty Start Date End Date Lovely Vicente MD PCP - General 04/16/[address] [place] [address] documented as of this encounter
--- OUTSIDE RECORDS SUMMARY | 2022-04-15 08:16 | XMS_ITS | Encounter Summary ---
:1945 Author Organization [facility] [place] [address] Care Team Providers Name Role Phone Lovely Vicente MD Primary Care Provider Encounter Details Date Type Department Care Team Description 12/24/2021 Telephone Public Health at [facility] [place] [address] Social History Tobacco Use Types Packs/Day Years Used Date Former Smoker Cigarettes 3 5 Quit: 07/26/18 69 Smokeless Tobacco: Never Used Alcohol Use Standard Drinks/Week Comments No 0 (1 standard drink = 0.6 oz pure alcoho l) Sex Assigned at Date Recorded Not on file documented as of this encounter Miscellaneous Notes Telephone Encounter - Dayami Bucknre - 12/24/2021 9:53 AM EDT 12/24 LVM needs covid test on 12/29 prior to surgery on 12/31. documented in this encounter Plan of Treatment Upcoming Encounters Date Type Specialty Care Team Description 05/28/2022 Appointment Cardiology Zulma Dolan MD [facility] [place] [address] (Wo rk) 05/28/2022 Laboratory Appointment Lab 05/28/2022 Office Visit Cardiology Zulma Dolan MD [facility] [place] [address] Liz Poole PA [facility] [place] [address] 06/10/2022 Office Visit Dermatology Laura Scherer MD [facility] ER [address] [place], [place] [address] (Wo rk) documented as of this encounter Visit Diagnoses Not on filedocumented in this encounter Care Teams Math And Physics Instructor Relationship Specialty Start Date End Date Lovely Vicente MD PCP - General 04/16/[address] [place] [address] documented as of this encounter
--- OUTSIDE RECORDS SUMMARY | 2022-04-15 08:16 | XMS_ITS | Encounter Summary ---
:1945 Author Organization [facility] Address [facility] [place] [address] Care Team Providers Name Role Phone Lovely Vicente MD Primary Care Provider Reason for Visit Auth/Cert Specialty Diagnoses / Procedures Referred By Contact Refer red To Contact Diagnoses ASCVD (arteriosclerotic cardiovascular disease) [I25.10] Vitaliy Nobles MD [facility] Procedures PRO PERC TRLUML CORONARY STENT W/ANGIO ONE ART/BRANCH CARDIAC CATHETERIZATION STENT PLACEMENT-SINGLE MAJOR CORONARY ARTERY OR BRANCH [facility] [place] [address] Referral ID Status Reason Start Date Expiration Date Visits Requ ested Visits Authorized [id number] 1 1 Encounter Details Date Type Department Care Team Description 01/30/2022 Hospital Encounter Short Stay Unit at Vitaliy Nobles, CVD (arteriosclerotic cardiovascular disease); Barbara Blue MD 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 Please follow up with your escrow assistant in the next 4-6 weeks. We [...] Murray RN - 01/30/2022 4:54 PM EDT [facility] Short Stay Unit Discharge Note [...] had referred him to cardiac rehab at [facility] last month per HF team. He was waiting until this intervention before starting the program. Reviewed managing angina /use of sl nitroglycerin. Given parameters for home exercise. 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 We discussed short walks several times per day. Will send [facility] his discharge summary from this admission. The patient should be contacted by the Program within 1- 2 weeks from discharge. Brief Op Note - Vitaliy Nobles MD - 01/30/2022 10:19 AM EDT Images from the original note were not included. [facility] [place] [address] CORONARY ANGIOGRAM AND PERCUTANEOUS CORONARY INTERVENTION REPORT Patient: Don Fatima : 1945 MR number: [id number] Date of Service: 01/30/2022 Switchboard Mechanic: Vitaliy Nobles MD Fellow: KEYON Elizabeth INDICATION: [...] a long 2.0 x 26 mm HARDEEP Wilson TUCKER stent and positioned it at the [...] using a 2.0 x 26 mm HARDEEP Wilson TUCKER stent. This completes the revascularization ofall [...] Dolan MD [facility] er [address] [place] [address] (Wo rk) 05/28/2022 Laboratory Appointment Lab 05/28/2022 Office Visit Cardiology Zulma Dolan MD [facility] [place] [id number] Liz Poole PA [facility] [place] [address] 06/10/2022 Office Visit Dermatology Laura Scherer MD [facility] ER DR [address] [place], [place] [address] (Wo rk) Scheduled Orders Name [...] P athologist Signature Neutrophils % 71.8 % [facility] Neutr Abs (ANC) 3.96 1.70 - [facility] 6.[address] [facility] x10(3)/[facility] LABORATORY Lymphocytes % 16.3 % [facility] Lymphocytes Abs 0.9 0.9 - 3.2 [facility] x10(3)/[facility] LABORATORY Monocytes % 10.0 % [facility] Monocyte Abs 0.6 0.3 - 0.9 [facility] x10(3)/[facility] LABORATORY Eosinophils % 0.5 % [facility] Eosinophils Abs 0.0 0.0 - 0.4 [facility] x10(3)/[facility] LABORATORY Basophils % 0.5 % [facility] Basophils Abs 0.0 0.0 - 0.1 [facility] x10(3)/[facility] LABORATORY Immature Gran % 0.90 % [facility] Comment: Immature [...] Organization Address City/State/[place] [address] (ABNORMAL) Hemogram (01/30/2022 2:12 PM EDT) Analysis Performed At Patho logist Time Signature WBC 5.5 4.0 - 9.5 [facility] x10(3)/[facility] LABORATORY RBC 4.30 (L) 4.58 - [place] 5.[address] [facility] x10(6)/[facility] LABORATORY Hemoglobin 12.7 (L) 13.7 - [place] 16.5 g/dL [facility] Hematocrit 39.4 (L) 40.5 - [place] 48.5 % [facility] MCV 91.6 82.9 - [facility].1 [facility] LABORATORY MCH 29.5 27.5 - [place]HAOSU 32.1 pg [facility] MCHC 32.2 32.0 - [place] 35.7 g/dL [facility] Platelets 172 145 - 357 [facility] x10(3)/[facility] LABORATORY RDWSD 54.5 (H) 36.0 - [facility]0 [facility] LABORATORY RDWCV 16.4 (H) 11.4 - [facility] 13.8 % [facility] LABORATORY MPV 9.2 7.6 - 12.9 [facility] LABORATORY nRBC % Auto 0.0 % [facility] nRBC Abs Auto 0.000 0.000 - [facility] 0.[address] [facility] x10(3)/[facility] LABORATORY Specimen Anatomical Collection Method Collection Time Receive d Time (Source) Location / / Volume Laterality Blood 01/30/2022 2:12 PM 2 2:37 EDT PM EDT Resulting Agency Comment Spec In Lab Eddi Elizabeth Jr., MD HEMATOLOGY ORDERABLES Performing Organization Address City/State/[place] [address] (ABNORMAL) Basic Metabolic Panel (non-fasting) (01/30/2022 2:12 PM EDT) P athologist Signature Glucose Lvl 163 65 - 199 [facility] mg/dL [facility] Comment: Diabetes: >=200 mg/dL plus symp toms BUN 30 (H) 10 - 20 mg/dL [facility] Creatinine 1.47 0.80 - 1.50 mg/dL [facility] LAB[facility] Sodium 140 135 - [...] m?? [facility] Comment: This patient's estimated [...] Organization Address City/State/[place] [address] POCT Glucose (01/30/2022 1:41 PM EDT) athologist Signature POC Glucose 148 65 - 199 [facility] mg/dL [facility] LAB[facility]ORY Comment: Supplemental ranges: <140 mg/dL before meals <180 mg/dL all other times of the day Specimen Anatomical Collection Method Collection Time Receive d Time (Source) Location / / Volume Laterality Blood 01/30/2022 1:41 PM 1:41 EDT PM EDT Vitaliy Sandra Nobles MD POINT OF CARE TEST ORDERABLE S Performing Organization Address City/[facility]/ZIP Code Phon e Number [address] POCT Glucose (01/30/2022 10:48 AM EDT) P athologist Signature POC Glucose 193 65 - 199 [facility] mg/dL [facility] LAB[facility]ORY Comment: Supplemental ranges: <140 mg/dL before meals <180 mg/dL all other times of the day Specimen Anatomical Collection Method Collection Time Receive d Time (Source) Location / / Volume Laterality Blood 01/30/2022 10:48 01/30/2022 AM EDT 10:48 AM EDT Vitaliy Sandra Nobles MD POINT OF CARE TEST ORDERABLE S Performing Organization Address [facility] [place] [address] EKG 12 Lead (01/30/2022 10:33 AM EDT) Component Value Ref Range Test Analysis Performed Pathologis t Method Time At Signature Ventricular rate 64 BPM MUSE SYSTEM Atrial Rate 64 BPM MUSE SYSTEM P-R Interval 162 ms MUSE SYSTEM QRS Duration 94 ms MUSE SYSTEM Q-T Interval 422 ms MUSE SYSTEM QTC Calculated 435 ms MUSE SYSTEM (Bezet) Calculated P [place] 41 degrees MUSE SYSTEM Calculated R [place] -27 degrees MUSE SYSTEM Calculated T [place] 104 degrees MUSE SYSTEM INTERPRETATION Normal sinus rhythm MUSE SYSTEM Anterolateral infarct (cited on or before 09-DEC-2021) Abnormal ECG When compared with ECG of 10-DEC-2021 11:17, No significant change was found Confirmed by Gary Perez ([id number]) on 01/30/2022 5:57:5 2 PM Specimen Anatomical Collection Method Collection Time Receive d Time (Source) Location / / Volume Laterality 01/30/2022 10:33 01/30/2022 5:57 AM EDT PM EDT Vitaliy Sandra Nobles MD ECG ORDERABLES Performing Organization Address City/[facility]/ZIP Code Phon e Number MUSE SYSTEM CARDIAC CATHETERIZATION (01/30/2022 10:16 AM EDT) Anatomical Region Laterality Modality Other Specimen (Source) Anatomical Location Collection Method / Collectio n Time Received Time / Laterality Volume Narrative 01/30/2022 2:09 PM EDT ?[facility] ? Cardiac Cathete rization/Intervention Report ? Patient Name: Don Fatima. ? Procedure Date: 01/30/2022 ? A #: [id number] ? Primary Physician: Nobles, Vitaliy P ? Case #: [id number] ? File Name: [id number] ? Catheterization Order Number: [id number] ? [facility] ? Final Report [place], [place] ? Patient Name: ? Don Mccollum. Stewa rt ? ID#: ?[id number] ? : ?1945 ? Procedure Date: ? [...] ?designated as ASA Class III. Th e [facility] clinical frailty scale is 5: Mildly ?Frail. [...] was Urgent. 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 Chest pain symptom assessment ?was: Typical Angina. ? Technique: ?A 6 SLFr sheath was inserted in the right radial artery utilizing the ?Seldinger technique. The right coronary artery was injected utilizing a ?IR 2.0 catheter. Coronary stent insertion was performed and the equipment ?utilized will be described in located within [facility] intervention summary section. 9,000 ?units [...] guiding catheter an d a 3.5 Fr [place] [employer] [place] [address] ??20 Mhz ?using Manual pullback. ??Imagin [...] A premounted 2.00 x 26 mm [place]ep Wilson (TUCKER) ? was deployed wi a maximum [...] Wedelivered along 2.0 x 26 mm HARDEEP Wilson ? TUCKER stent and p ositioned it [...] administered prior to arrival in the laborer steel handling. ?Recommended anti-platelet/anti- thrombotic regimen: ?Continue aspirin 81 [...] require ?modification of this regimen. C onsult [facility] Interventional Cardiology for ?questions. ?The 1 year bleeding risk as nusrat culated by the PRECISE DAPT score is High ?risk. ?High Bleeding Risk - Anticoagul ation and DAPT: ?- ??Assess ischemic and bleedin g risks using validated risk predictors ?(e.g. CHADS2-VASC, HAS-BLED, [place] ECISE DAPT, DAPT Score) ?- ??Keep anticoagulant [...] using a 2.0 x 26 mm HARDEEP Wilson TUCKER stent. ?This completes the revasculariz ation [...] Procedure Note Vitaliy Nobles MD - 03/06/2022 [facility] Cardiac Catheterization/Intervention Re port Patient Name: Don Fatima Procedure Date: 01/30/2022 A #: [id number] Primary Physician: Vitaliy Nobles Case #: [id number] File Name: [id number] Catheterization Order Number: [id number] [facility] Final Report [place], [place] Patient Name: Don Fatima ID#: [...] was Urgent. The indication for the laborer steel handling visit is stable known CAD. Chest pain [...] 1.5 guiding catheter and a 3.5 Fr [place] [employer] [place] [address] 20 Mhz using Manual pullback. Imaging [...] atmospheres. A premounted 2.00 x 26 mm [place] Wilson (TUCKER) was deployed with a maximum inflation [...] along 2. 0 x 26 mm HARDEEP Wilson TUCKER stent and positioned it at the [...] prior t o arrival in the laborer steel handling. Recommended anti-platelet/anti-thrombot ic regimen: Continue aspirin 81 [...] using a 2.0 x 26 mm HARDEEP Wilson TUCKER stent. This completes the revascularization of [...] POC Glucose 212 (H) 65 - 199 [facility] Comment: Supplemental ranges: <140 mg/dL before meals <180 mg/dL all other times of the day Specimen Anatomical Collection Method Collection Time Receive d Time (Source) Location / / Volume Laterality Blood 01/30/2022 9:04 AM 2 9:04 EDT AM EDT Vitaliy Nobles MD POINT OF CARE TEST ORDERABLE S Performing Organization Address City/State/[place] [address] (ABNORMAL) POCT Glucose (01/30/2022 8:10 AM EDT) athologist Signature POC Glucose 224 (H) 65 - 199 [facility] mg/dL [facility] Comment: Supplemental ranges: <140 mg/dL before meals <180 mg/dL all other times of the day Specimen Anatomical Collection Method Collection Time Receive d Time (Source) Location / / Volume Laterality Blood 01/30/2022 8:10 AM 2 8:10 EDT AM EDT Vitaliy Nobles MD POINT OF CARE TEST ORDERABLE S Performing Organization Address City/State/[place] [address] documented in this encounter Visit Diagnoses Diagnosis ASCVD (arteriosclerotic cardiovascular d isease) Unspecified cardiovascular disease 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 ASHD (arteriosclerotic heart disease) Coronary atherosclerosis of unspecified type of vessel, [place] tribe or graft ASCVD (arteriosclerotic cardiovascular d isease) Unspecified cardiovascular disease documented in this encounter Admitting Diagnoses Diagnosis CAD (coronary artery disease) Coronary atherosclerosis of unspecified type of vessel, kiowa tribe or graft documented in this encounter [...] Procedure), Routine niCARdipine (Cardene) (100 mcg/mL) dilution (ART HISTORIAN) (CANCELED ) 0927 (Given - Provider: Vitaliy [...] (Intra-Procedure) documented in this encounter Care Teams Mangle Operator Garments Relationship Specialty Start Date End Date Lovely Vicente MD PCP - General 04/16/[address] [place] [address] documented as of this encounter
--- OUTSIDE RECORDS SUMMARY | 2022-04-15 08:16 | XMS_ITS | Encounter Summary ---
:1945 Author Organization [facility] [place] [address] Care Team Providers Name Role Phone Lovely Vicente MD Primary Care Provider Reason for Referral Consultation (Routine) - Closed Specialty Diagnoses / Referred By Contact Referred To Contact Procedures Cardiac Rehabilitation Diagnoses Acute HFrEF (heart failure with reduced ejection fraction) Janneth Padilla, Cardiac Rehab, [address] [place] CARDIOLOGY DEPT. [id number] [place] [address] Referral ID Status Reason Start Date Expiration Date Visits V isits Requested Authorized [id number] Closed Consult, 12/12/2021 12/12/2022 36 36 Test & Treat Reason for Visit Auth/Cert Specialty Diagnoses / Procedures Referred By Contact Refer red To Contact Diagnoses NSTEMI Procedures emerg ipi Referral ID Status Reason Start Date Expiration Date Visits Requ ested Visits Authorized [id number] 1 1 Encounter Details Date Type Department Care Team Description 12/08/2021 - Hospital Encounter Intermediate Cardiac Iker Cuevas MD [facility] [place] [address] Non-ST elevation myocardial infarction ( NSTEMI); 12/12/2021 Care Unit Ifeanyi Rene MD [facility] [address] ST elevation myocardial infarction (STEM I), unspecified artery; [facility] Acute HFr EF (heart failure with reduced ejection fraction) [place] [address] Social History Tobacco Use Types Packs/Day Years [...] Don Fatima Patient Age: 76 y.o. Language: Kiswahili Race: White Ethnicity: Not nor Admit date: [...] Peter PA-C Kelly LaFlamme PA-C Cardiovascular Medicine [phone] Discharge Diagnoses (Hospital Problems) and Secondary Diagnoses [...] 3.75 guiding catheter and a 3.5 Fr [place] Inupiat 20 Mhz using Manual pullback. Imaging was successful. Image quality was good. The ostial LCX showed moderate diffuse atherosclerotic plaque with scattered three quadrant calcification. Measurements were performed after pre-dilation. Post Intervention: The stent was well expanded and apposed. Intravascular Ultrasound was performed in the distal LM using a 7 Fr EBU 3.75 guiding catheter and a 3.5 Fr [place] Inupiat 20 Mhz using Manual pullback. Imaging was [...] require modification of this regimen. Consult [facility] Interventional Cardiology [...] mg PO daily in place of lasix. [place] is new for him and he will [...] be ~$24/mo; affordable per patient. Post [facility] he was started on Eliquis. He [...] appointments: During 8am-5pm Wednesday through Wednesday call [phone] to speak with a nurse in the cardiology clinic All other times call [phone] and ask to speak to the commercial carpet installer production mechanic tin cans. Return to work: One week Driving: No driving for 48 hours after catheterization. Follow up Appointments: PCP Lovely Vicente MD [phone] to see patient at the end of December for annual check up. Patient to see Dr. Lorenzana at 1120 am at December 19 for a post hospital check up. E Tailer Dr. De Oliveira to see you in [facility]. Left a message for office to set a date and time. Please call [phone] Nobles to see the patient for a same day cath in 2-3 weeks from now. Office to call with a date and time. For questions please call [phone] Home oxygen therapy: N/A Arrangements for VNA/home care: none Future Appointments and Orders Future Orders Complete By Expires Basic Metabolic Panel (non-fasting) [LAB15 Custom] 12/19/2021 (Approximate) 12/12/2022 Process Instructions: INCLUDES: Calcium, BUN, Creat, GFR, Glucose, Lytes Scheduling Instructions: Comments: Questions: Referral to Cardiac Rehab [[id number] Custom] As directed Process Instructions: If no [...] appointments: During 8am-5pm Wednesday through Wednesday call [phone] to speak with a nurse in the cardiology clinic All other times call [phone] and ask to speak to the commercial carpet installer production mechanic tin cans. Return to work: One week Driving: No driving for 48 hours after catheterization. Follow up Appointments: PCP Lovely Vicente MD [phone] to see patient at the end of December for annual check up. Patient to see Dr. Lorenzana at 1120 am at December 19 for a post hospital check up. E Tailer Dr. De Oliveira to see you in [facility]. Left a message for office to set a date and time. Please call [phone] Nobles to see the patient for a same day cath in 2-3 weeks from now. Office to call with a date and time. For questions please call [phone] Home oxygen therapy: N/A Arrangements for VNA/home [...] Progress Note Patient Name: Don Fatima Service: SANDER HAND / PA Responsible Attending: Ifeanyi Truong MD [...] was given Lasix 80mg IV x1 in engineering lab technician. Tolerated procedure well. Home today [...] 1.13* 0.92* 0.89* Pertinent Radiographic/Diagnostic Results: R/[facility] 12/10/21 Hemodynamics: Right Heart Pressures Resting: [...] with MD Janneth Neville PA 12/12/2021 Pager [phone] Associated attestation - Ifeanyi Truong MD - [...] for each meal) Desirae Jett APRN [facility] Endocrinology Diabetes Management Pager [phone] 20 minutes of this 35 minute visit [...] Progress Note Patient Name: Don Fatima Service: SANDER HAND / PA Responsible Attending: Iker Cuevas MD [...] was given Lasix 80mg IV x1 in engineering lab technician. Tolerated procedure well. Review of [...] 1.13* 0.92* 0.89* Pertinent Radiographic/Diagnostic Results: R/[facility] 12/10/21 Hemodynamics: Right Heart Pressures Resting: [...] and answered his questions. Iker Cuevas MD [facility] Total time spent on review of records prior to visit, face to face time with patient during visit, documentation, and coordination of care with other clinicians: 25 minutes. . Iker Cuevas MD - 12/10/2021 12:30 PM EDT Images from the original note were not included. Inpatient Cardiology Progress Note Patient Name: Don Fatima Service: SANDER HAND / PA Responsible Attending: Iker Cuevas MD [...] was given Lasix 80mg IV x1 in engineering lab technician. Tolerated procedure well. Review of [...] ??? heparin (porcine) infusion 1,600 Units/hr (12/09/21 9474) PRN Meds:ipratropium-albuteroL, senna-docusate, bisacodyL, sodium chloride 0.9 [...] 1.13* 0.92* 0.89* Pertinent Radiographic/Diagnostic Results: R/[facility] 12/10/21 Hemodynamics: Right Heart Pressures Resting: [...] infusion #GI prophylaxis: PPI Discussed with MD Migdlaia Peter PA-C Pager #[phone] 12/10/2021 Cardiology Attending Note I have seen [...] updated and given pictures. Iker Cuevas MD [facility] Total time spent on review of records prior to visit, face to face time with patient during visit, documentation, and coordination of care with other clinicians: 35 minutes. Iker Cuevas MD - 12/09/2021 7:28 AM EDT Images from the original note were not included. Inpatient Cardiology Progress Note Patient Name: Don Fatima Service: SANDER HAND / PA Responsible Attending: Iker Cuevas MD [...] ??? heparin (porcine) infusion 1,600 Units/hr (12/09/21 4088) PRN Meds:ipratropium-albuteroL, sodium chloride 0.9 % (flush), [...] Discussed with MD Migdalia Peter PA-C Pager #[phone] 12/09/2021 Cardiology Attending Note I have seen [...] < 70 -CPAP tonight Iker Cuevas MD [facility] Total time spent on [...] at [facility] OR ??? PRO AMPUTATION FOOT, [...] [facility] ENDOSCOPY ??? PRO DRESSING CHANGE UNDER ANESTHESIA Right 08/11/2017 (MSURG) DRESSING CHANGE (FOR OTHER THAN IVAN) UNDER ANES. (WRVU 0.86) performed by Lamar Smith MD at [facility] OR ??? PRO ENDOSCOPY W/VIDEO-ASST VEIN HARVEST, CABG Right 07/07/2017 ENDOSCOPIC HARVEST VEIN(S) FOR CABG (WRVU 0.31) performed by Yuan Retana MD at [facility] OR ??? PRO THYROIDECTOMY 03/28/2013 THYROIDECTOMY, TOTAL OR COMPLETE performed by Manny Mcknight MD at [facility] MAIN OR Significant Family History: Family [...] for ADRs. Trend troponins. Admission EKG. [facility] 12/09; consented. TTE. Telemetry monitoring, daily [...] #Diet-carb control; n.p.o. after midnight for [facility] #DVT prophy- heparin infusion #GI prophy- PPI Discussed with MD Morgan Peter PA-C APP2 pager [phone] 12/08/2021 Cardiology Attending Note I have seen [...] is type 1 due to graft or [place] coronary stenosis vs acute injury from CHF. 3. PAF: currrently in NSR. Have replaced warfarin with heparin 4. PAD: stable 5. DM: stable 6. CKD: will monitor and minimize contrast. Pt very appreciative of Dr. Yuan Retana's care in 2018. Will let him know patient is here. Iker Cuevas MD [facility] documented in this encounter [...] Type: *No Product type* / Secondary Insurance: [employer] [place] Prescription Coverage: Yes This plan was [...] cath without complications. Migdalia Parker PA-C Pager #[phone] 12/10/2021 Initial Assessments - Nick Georges RN [...] COVID test: Lab Results Component Value Date [id number] Not Detected 12/08/2021 Past medical History: Past [...] days) Any patient receiving care at [facility] must abide by [place] law. The hierarchy [...] standard, cane - straight Home Address: [address] [place] [address] [place] [address] Social & Family Supports: All names listed below confirmed with patient as current and correct Extended Emergency Contact Information Primary Emergency Contact: Kisha Fatima Address: [address] [place] [address] [place] [address] [facility] Mobile Relation: Spouse Secondary Emergency Contact: Elba Swenson Address: [address] [place] Relation: Child Current Care Provided [...] Type: *No Product type* / Secondary Insurance: [employer] CROSS BLUE [facility] Prescription Coverage: Yes Preferred Pharmacy: [facility] Home Delivery [facility] [address] [address] [address] - [address] [address] [place] Status: Patient is a : unable to assess Primary Care Provider: Lovely Vicente MD [phone] Patient/Caregiver Goals of Treatment: Get out of here Potential Needs for Transition of Care: none Agency Referrals: none patient has used [facility] in the past Transportation: no concerns Transportation Anticipated: family or friend will provide Concerns to be Addressed: patient refuses services, discharge planning Assessment: Patient is admitted to [facility] Service pager [phone] for 76 y.o.??male??with h/o??CAD s/p 3vCABG (THOMPSON-LAD, [...] status on current unit. Nick Georges RN paint prepper, Office of Care Management Pager: [phone] Brief Op Note - Vitaliy Nobles MD - 12/10/2021 8:31 AM EDT Images from the original note were not included. [facility] [place] [address] CORONARY ANGIOGRAM AND PERCUTANEOUS CORONARY INTERVENTION REPORT Patient: Don Fatima : 1945 MR number: [id number] Date of Service: 12/10/2021 Railway Track Plant Operator: Vitaliy Nobles MD Fellow: [place] [...] and to provide a review of superintendent terminal diabetes care. Diabetes History: Don Fatima has had diabetes for 10 years. He has been on insulin for the last several years andis managed by his PCP. Lives in [place], [place] with his . States that he [...] Hold] heparin (porcine) infusion 1,600 Units/hr (12/09/21 3916) PRN: [SEP Hold] ipratropium-albuteroL, [SEP Hold] senna-docusate, [...] provide care for your patient Desirae Shaper DIRECTOR OF [employer] Endocrinology Pager [phone] 70 minutes of this [...] to remain on Med/Surg floor, please page [phone] for any further questions or concerns. LANDON [...] for further details. STEPHANIE Rebolledo 12/08/2021 Pager [phone] documented in this encounter Plan of Treatment Upcoming Encounters Date Type Specialty Care Team Description 05/28/2022 Appointment Cardiology Zulma Dolan MD [facility] [place], [place] [address] (Wo rk) 05/28/2022 Laboratory Appointment Lab 05/28/2022 Office Visit Cardiology Zulma Dolan MD [facility] [place] [address] Liz Poole PA [facility] [place] [address] 06/10/2022 Office Visit Dermatology Laura Scherer MD [facility] [address] [place], [place] [address] (Wo rk) Scheduled Referrals Name [...] - 199 [facility] mg/dL [facility] LABORATORY [...] City/State/[place] [address] (ABNORMAL) Differential, Automated (12/12/2021 4:51 AM EDT) athologist Signature Neutrophils % 75.4 % [facility] LABORATORY Neutr Abs (ANC) 5.95 1.70 - [facility] 6.10 [facility] x10(3)/[facility] LABORATORY Lymphocytes % 12.2 % [facility] LABORATORY Lymphocytes Abs 1.0 0.9 - 3.2 [facility] x10(3)/[facility] LABORATORY Monocytes % 9.5 % [facility] LABORATORY Monocyte Abs 0.8 0.3 - 0.9 [facility] x10(3)/[facility] LABORATORY Eosinophils % 1.8 % [facility] LABORATORY Eosinophils Abs 0.1 0.0 - 0.4 [facility] x10(3)/[facility] LABORATORY Basophils % 0.5 % [facility] LABORATORY Basophils Abs 0.0 0.0 - 0.1 [facility] x10(3)/[facility] LABORATORY Immature Gran % [...] Abs 0.05 (H) 0.00 - 0.04 x10(3)/[facility] LABORATORY Specimen Anatomical Collection Method Collection Time Receive d Time (Source) Location / / Volume Laterality Blood 12/12/2021 4:51 AM 2 5:06 EDT AM EDT Resulting Agency Comment Spec In Lab Bijan Sun MD HEMATOLOGY ORDERABLES Performing Organization Address City/State/[place] [address] (ABNORMAL) Hemogram (12/12/2021 4:51 AM EDT) Analysis Performed At Patho logist Time Signature WBC 7.9 4.0 - 9.5 [facility] x10(3)/[facility] LABORATORY RBC 4.19 (L) 4.58 - [facility] 5.54 [facility] x10(6)/[facility] LABORATORY Hemoglobin 12.1 (L) 13.7 - [facility] 16.[facility] g/dL [facility] LABORATORY Hematocrit 36.7 (L) 40.5 - [facility] 48.5 % [facility] LABORATORY MCV 87.6 82.9 - [facility] 93.1 fL [facility] LABORATORY MCH 28.9 27.5 - [facility] 32.1 pg [facility] LABORATORY MCHC 33.0 32.0 - [place] 35.7 g/dL [facility] LABORATORY Platelets 231 145 - 357 [facility] x10(3)/[facility] LABORATORY RDWSD 47.2 (H) 36.0 - [place] 45.0 [facility] [place] LABORATORY RDWCV 14.6 (H) 11.4 - [facility] 13.8 % [facility] LABORATORY MPV 9.5 7.6 - 12.9 [facility] LABORATORY nRBC % Auto 0.0 % [facility] LABORATORY nRBC Abs Auto 0.000 0.000 - [place] 0.000 [facility] x10(3)/[facility] LABORATORY Specimen Anatomical Collection Method Collection Time Receive d Time (Source) Location / / Volume Laterality Blood 12/12/2021 4:51 AM 2 5:06 EDT AM EDT Resulting Agency Comment Spec In Lab Bijan Sun MD HEMATOLOGY ORDERABLES Performing Organization Address City/[facility]/[place] [address] (ABNORMAL) Prothrombin Time (12/12/2021 4:51 AM EDT) P athologist Signature PT 14.9 (H) 9.4 - 12.5 [facility] LABORATORY INR 1.3 [facility] [...] Cuevas MD HEMATOLOGY ORDERABLES Performing Organization Address City/[facility]/[place] [address] (ABNORMAL) BMP w/fasting Glucose (12/12/2021 4:51 AM EDT) athologist Signature Glucose 152 (H) 65 - 99 [facility] Fasting mg/dL [facility] [...] of Diabetes Mellitus, Position Statement from the [place] [employer]. ??Diabete s Care, Volume 33, [...] Organization Address City/State/[place] [address] Magnesium (12/12/2021 4:51 AM EDT) P athologist Signature Magnesium 1.02 0.69 - 1.07 [facility] mmol/L [facility] LABORATORY Specimen Anatomical Collection Method Collection Time Receive d Time (Source) Location / / Volume Laterality Blood 12/12/2021 4:51 AM 2 5:06 EDT AM EDT Resulting Agency Comment Spec In Lab Iker Cuevas MD CHEMISTRY ORDERABLES Performing Organization Address City/[facility]/[place] [address] POCT Glucose (12/12/2021 3:43 AM EDT) P athologist Signature POC Glucose 138 65 - 199 [facility] mg/dL [facility] LABORATORY Comment: Supplemental ranges: <140 mg/dL before meals <180 mg/dL all other times of the day Specimen Anatomical Collection Method Collection Time Receive d Time (Source) Location / / Volume Laterality Blood 12/12/2021 3:43 AM 2 3:43 EDT AM EDT Iker Cuevas MD POINT OF CARE TEST ORDERABLE S Performing Organization Address City/State/[place] [address] POCT Glucose (12/11/2021 11:44 PM EDT) athologist Signature POC Glucose 124 65 - 199 [place] mg/dL [facility] LABORATORY [...] [facility]/[place] [address] (ABNORMAL) POCT Glucose (12/11/2021 8:12 PM EDT) athologist Signature POC Glucose 200 (H) 65 - 199 [facility] mg/dL [facility] LABORATORY [...] Health/[facility]/[place] [address] (ABNORMAL) POCT Glucose (12/11/2021 6:50 PM EDT) athologist Signature POC Glucose 245 (H) 65 - 199 [place] mg/dL [facility] LABORATORY Comment: Supplemental ranges: <140 mg/dL before meals <180 mg/dL all other times of the day Specimen Anatomical Collection Method Collection Time Receive d Time (Source) Location / / Volume Laterality Blood 12/11/2021 6:50 PM 2 6:50 EDT PM EDT Iker Cuevas MD POINT OF CARE TEST ORDERABLE S Performing Organization Address City/State/[place] [address] (ABNORMAL) POCT Glucose (12/11/2021 4:00 PM EDT) P athologist Signature POC Glucose 383 (H) 65 - 199 [facility] mg/dL [facility] LABORATORY [...] [facility]/[place] [address] (ABNORMAL) POCT Glucose (12/11/2021 12:01 PM EDT) athologist Signature POC Glucose 342 (H) 65 - 199 [facility] mg/dL [facility] LABORATORY [...] Health/[facility]/[place] [address] COVID-19 PCR (12/11/2021 10:13 AM EDT) [facility] gist Method Time Signature SARS-CoV-2 Not Detected Not Detected BARBARA RNA [facility] LABORATORY Comment: This [...] diagnosis of COVID-19 is performed using the [employer] Dianna FRIEND S-CoV-2 Assay as authorized by the FDA Emergency Use Authorization (EUA). This EUA assay is intended for In-vitro Diagnostic (IVD) use with respiratory sp ecimens such as nasopharyngeal swabs collected from individuals during the ac gakona phase of infection. This assay is performed based on the instructions for use provided by [employer] and additional guidance provided by CDC [...] fact sheets at the following FDA website: https://www.fda.gov/medical-devices/cyukenkndia-kvcrjyy-0646-fsvwo-86-dytcvggea- tqd-zmkvmfnkwogitr-vyleoyb-devices/nsjxa-buymzivylag-qfwu SARS-Cov-2 RNA Source SANDER HAND Swab [facility] LABORATORY Specimen (Source) Anatomical Collection Method Collection Time Re ceived Time Location / / Volume Laterality Nasopharyngeal Swab 12/11/2021 10:13 05/03/2022 AM EDT 11:16 AM EDT Comment: Symptoms->Surveillance Resulting Agency Comment Spec In Lab Iker Cuevas MD MICROBIOLOGY - GENERAL ORDER [place] Performing Organization Address City/[facility] [place] [address] POCT Glucose (12/11/2021 7:34 AM EDT) athologist Signature POC Glucose 198 65 - 199 [facility] mg/dL [facility] LABORATORY [...] Health/[facility]/[place] [address] (ABNORMAL) POCT Glucose (12/11/2021 5:07 AM EDT) P athologist Signature POC Glucose 208 (H) 65 - 199 [facility] mg/dL [facility] LABORATORY [...] Health/[facility]/[place] [address] (ABNORMAL) Differential, Automated (12/11/2021 4:28 AM EDT) [facility] Method Time Signature Neutrophils % 79.6 % [facility] LABORATORY Neutr Abs (ANC) 7.01 (H) 1.70 - [facility] 6.10 [facility] x10(3)/[facility] LABORATORY Lymphocytes % 9.1 % [facility] LABORATORY Lymphocytes Abs 0.8 (L) 0.9 - 3.2 [facility] x10(3)/[facility] LABORATORY Monocytes % 9.2 % [facility] LABORATORY Monocyte Abs 0.8 0.3 - 0.9 [facility] x10(3)/[facility] LABORATORY Eosinophils % 1.3 % [facility] LABORATORY Eosinophils Abs 0.1 0.0 - 0.4 [facility] x10(3)/[facility] LABORATORY Basophils % 0.5 % [facility] LABORATORY Basophils Abs 0.0 0.0 - 0.1 [facility] x10(3)/[facility] LABORATORY Immature Gran % 0.30 % [...] Melisa Gran Abs 0.03 0.00 - 0.04 x10(3)/[facility] MAR Y [facility] LABORATORY Specimen Anatomical Collection Method Collection Time Receive d Time (Source) Location / / Volume Laterality Blood 12/11/2021 4:28 AM 4:37 EDT AM EDT Resulting Agency Comment Spec In Lab Bijan Sun MD HEMATOLOGY ORDERABLES Performing Organization Address City/[facility]/[place] [address] (ABNORMAL) Hemogram (12/11/2021 4:28 AM EDT) Analysis Performed At Patho logist Time Signature WBC 8.8 4.0 - 9.5 [facility] x10(3)/[facility] LABORATORY RBC 4.15 (L) 4.58 - [facility] 5.54 [facility] x10(6)/[facility] LABORATORY Hemoglobin 11.9 (L) 13.7 - [facility] 16.5 g/dL [facility] LABORATORY Hematocrit 36.9 (L) 40.5 - [facility] 48.5 % [facility] LABORATORY MCV 88.9 82.9 - [facility] 93.1 [facility] [place] LABORATORY MCH 28.7 27.5 - [facility] 32.1 pg [facility] LABORATORY MCHC 32.2 32.0 - [facility] 35.7 g/dL [facility] LABORATORY Platelets 211 145 - 357 [facility] x10(3)/[facility] [facility] LABORATORY RDWSD 48.3 (H) 36.0 - [facility] LABORATORY RDWCV 14.8 (H) 11.4 - [facility] 13.8 % [facility] LABORATORY MPV 9.6 7.6 - 12.9 [facility] LABORATORY nRBC % Auto 0.0 % [facility] LABORATORY nRBC Abs Auto 0.000 0.000 - [facility] 0.000 [facility] x10(3)/[facility] LABORATORY Specimen Anatomical Collection Method Collection Time Receive d Time (Source) Location / / Volume Laterality Blood 12/11/2021 4:28 AM 2 4:37 EDT AM EDT Resulting Agency Comment Spec In Lab Bijan Sun MD HEMATOLOGY ORDERABLES Performing Organization Address City/State/[place] [address] (ABNORMAL) Prothrombin Time (12/11/2021 4:28 AM EDT) P athologist Signature PT 17.7 (H) 9.4 - 12.5 [facility] LABORATORY INR 1.6 [facility] [...] Organization Address City/State/[place] [address] (ABNORMAL) BMP w/fasting Glucose (12/11/2021 4:28 AM EDT) athologist Signature Glucose 207 (H) 65 - 99 [facility] Fasting mg/dL [facility] [...] of Diabetes Mellitus, Position Statement from the [place] [employer]. ??Diabete s Care, Volume 33, [...] Cuevas MD CHEMISTRY ORDERABLES Performing Organization Address City/[facility] [place] [address] Magnesium (12/11/2021 4:28 AM EDT) P athologist Signature Magnesium 1.04 0.69 - 1.[address] [facility]/L [facility] LABORATORY Specimen Anatomical Collection Method Collection Time Receive d Time (Source) Location / / Volume Laterality Blood 12/11/2021 4:28 AM 2 4:37 EDT AM EDT Resulting Agency Comment Spec In Lab Iker Cuevas MD CHEMISTRY ORDERABLES Performing Organization Address City/State/ZIP Code Phon e Number [place] [id number] HOSPITAL LABORATORY Drive POCT Glucose (12/11/2021 3:58 AM EDT) athologist Signature POC Glucose 189 65 - 199 BARBARA RYAN mg/dL [facility] LABORATORY [...] [facility]/[place]IP [place] [address] (ABNORMAL) POCT Glucose (12/10/2021 11:45 PM EDT) athologist Signature POC Glucose 205 (H) 65 - 199 BARBARA ZHAORYAN mg/dL [facility] LABORATORY [...] [facility]/[place] [address] (ABNORMAL) POCT Glucose (12/10/2021 7:54 PM EDT) athologist Signature POC Glucose 225 (H) 65 - 199 BARBAR[place] RYAN mg/dL [facility] LABORATORY [...] City/State/[place] [address] Potassium (12/10/2021 7:46 PM EDT) athologist Signature Potassium 4.2 3.5 - 5.0 [facility] mmol/L [facility] LABORATORY [...] Cuevas MD CHEMISTRY ORDERABLES Performing Organization Address City/[facility]/[place]IP [place] [address] (ABNORMAL) Basic Metabolic Panel (non-fasting) (12/10/2021 6:12 PM EDT) athologist Signature Glucose Lvl 246 (H) 65 - 199 [facility] mg/dL [facility] LABORATORY [...] Cuevas MD CHEMISTRY ORDERABLES Performing Organization Address City/[facility]/[place] [address] POCT Glucose (12/10/2021 4:59 PM EDT) P athologist Signature POC Glucose 158 65 - 199 [facility] mg/dL [facility] LABORATORY [...] City/State/[place] [address] (ABNORMAL) POCT Glucose (12/10/2021 12:43 PM EDT) P athologist Signature POC Glucose 241 (H) 65 - 199 BARBARA DAVIS mg/dL [facility] LABORATORY [...] Code Phon e Number [facility] [address] EKG 12 Lead (12/10/2021 11:17 AM EDT) Component Value Ref Range Test Analysis Performed Pathologis t Method Time At Signature Ventricular rate 62 BPM MUSE SYSTEM Atrial Rate 62 BPM MUSE SYSTEM P-R Interval 142 ms MUSE SYSTEM QRS Duration 100 ms MUSE SYSTEM Q-T Interval 434 ms MUSE SYSTEM QTC Calculated 440 ms MUSE SYSTEM (Bezet) Calculated P [place] 34 degrees MUSE SYSTEM Calculated R [place] -39 degrees MUSE SYSTEM Calculated T [place] 92 degrees MUSE SYSTEM INTERPRETATION Normal sinus [...] Laterality Volume Narrative 12/10/2021 12:04 PM EDT ?[facility] ? Cardiac Cathete rization/Intervention Report ? Patient Name: Don Fatima. ? Procedure Date: 12/10/2021 ? A #: [id number] ? Primary Physician: Nobles, Vitaliy P ? Case #: [id number] ? File Name: [id number] ? Catheterization Order Number: [id number] ? [facility] ? Final Report [place], [place] ? Patient Name: ? Don E. Stewa rt ? ID#: ?[id number] ? : ?1945 ? Procedure Date: ? December 10, 2021 ? Case #: ? [id number] ? Room: ? 1 ? Case Physician: [...] was ?designated as ASA Class III. e [facility] clinical frailty scale is 5: Mildly [...] procedure was Urgent. The indication for ?the engineering lab technician visit is ACS great er [...] ?3.75 guiding catheter and a 3.5 Fr [facility] 20 Mhz using Manual ?pullback. ??Imaging was [...] ?3.75 guiding catheter and a 3.5 Fr [facility] 20 Mhz using Manual ?pullback. ??Imaging was [...] Ammended: 01/14/2022 ??12:09 ? Procedure Note Vitaliy oNbles MD - 01/14/2022 [facility] Cardiac Catheterization/Intervention Re port Patient Name: Kushal Don VedaMadiha Procedure Date: 12/10/2021 A #: [id number] Primary Physician: Vitaliy Nobles Case #: [id number] File Name: [id number] Catheterization Order Number: [id number] [facility] Double [facility]le [facility] Final Report [place], [place] Patient Name: Don Fatima ID#: [...] e was Urgent. The indication for the engineering lab technician visit is ACS greater than [...] and a 3.5 Fr [facility] 20 Mhz using Manual pullback. Imaging was [...] and a 3.5 Fr [facility] 20 Mhz using Manual pullback. Imaging was successful. Image quality was good. The distal LM showed moderate diffuse atherosclero tic plaque. Post Intervention: The stent was well e xpanded and apposed. Indication for Intervention: Coronary intervention was indicated for primary therapy for an acute myocardial infarction. The priority for the procedure was Urgent. The [facility] indication for the procedure was N [...] this regimen. Consult D [facility] Interventional Cardiology for questions. The 1 year [...] POC Glucose 262 (H) 65 - 199 [facility] mg/dL [facility] LABORATORY [...] City/State/[place] [address] (ABNORMAL) POCT Glucose (12/10/2021 9:48 AM EDT) athologist Signature POC Glucose 279 (H) 65 - 199 [facility] mg/dL [facility] LABORATORY Comment: Supplemental ranges: <140 mg/dL before meals <180 mg/dL all other times of the day Specimen Anatomical Collection Method Collection Time Receive d Time (Source) Location / / Volume Laterality Blood 12/10/2021 9:48 AM 9:48 EDT AM EDT Iker Cuevas MD POINT OF CARE TEST ORDERABLE S Performing Organization Address City/State/[place] [address] (ABNORMAL) POCT Glucose (12/10/2021 9:07 AM EDT) P athologist Signature POC Glucose 268 (H) 65 - 199 [facility] mg/dL [facility] LABORATORY Comment: Supplemental ranges: <140 mg/dL before meals <180 mg/dL all other times of the day Specimen Anatomical Collection Method Collection Time Receive d Time (Source) Location / / Volume Laterality Blood 12/10/2021 9:07 AM 9:07 EDT AM EDT Iker Cuevas MD POINT OF CARE TEST ORDERABLE S Performing Organization Address City/State/[place] [address] (ABNORMAL) Point of Care Blood Gas Historical (12/10/2021 9:04 AM EDT) Patholo gist Method Time Signature POC pH 7.40 7.35 - [facility] 7.45 [facility] LABORATORY POC PCO2 40 35 - 45 [facility] mmHg [facility] LABORATORY POC PO2 63 (L) 85 - 104 [facility] LABORATORY POC Base Excess 0.0 -3.0 - 3.0 [facility] mmol/L [facility] LABORATORY POC HCO3 24.8 20.0 - [facility] 26.0 [facility] mmol/[facility] LABORATORY POC Sodium 143 135 - 145 [facility] mmol/L [facility] LABORATORY POC Potassium 3.7 3.5 - 5.0 [facility] mmol/L [facility] LABORATORY POC Ionized Ca 1.07 (L) 1.15 - [facility] 1.33 [facility] mmol/L HOSPITAL LABORATORY POC Hematocrit 30.0 (L) 40.0 - [facility] 51.0 % [facility] LABORATORY POC Calc Hgb 10.2 (L) 13.7 - [facility] 17.5 g/dL [facility] LABORATORY Comment: The calculation of hemoglobin f rom hematocrit assumes a normal MCHC. POC Bgas Loc CC LAB [facility] LABORATORY Specimen Anatomical Collection Method Collection Time Receive d Time (Source) Location / / Volume Laterality Blood 12/10/2021 9:04 AM 2 EDT 12:00 PM EDT Ifeanyi Truong MD CHEMISTRY ORDERABLES Performing Organization Address City/[facility]/[place] [address] (ABNORMAL) POCT Glucose (12/10/2021 7:19 AM EDT) athologist Signature POC Glucose 274 (H) 65 - 199 [facility] mg/dL [facility] LABORATORY [...] Health/[facility]/[place] [address] Heparin (unfractionated) Level (12/10/2021 4:25 AM EDT) athologist Signature Heparin UFH 0.69 IU/mL [facility] [...] Address City/State/ZIP Code Phon e Number [address] (ABNORMAL) Differential, Automated (12/10/2021 4:25 AM EDT) [facility] Method Time Signature Neutrophils % 79.8 % [facility] LABORATORY Neutr Abs (ANC) 7.47 (H) 1.70 - [facility] 6.10 [facility] x10(3)/[facility] LABORATORY Lymphocytes % 10.6 % [facility] LABORATORY Lymphocytes Abs 1.0 0.9 - 3.2 [facility] x10(3)/[facility] LABORATORY Monocytes % 8.4 % [facility] LABORATORY Monocyte Abs 0.8 0.3 - 0.9 [facility] x10(3)/[facility] LABORATORY Eosinophils % 0.6 % [facility] LABORATORY Eosinophils Abs 0.1 0.0 - 0.4 [facility] x10(3)/[facility] LABORATORY Basophils % 0.2 % [facility] LABORATORY Basophils Abs 0.0 0.0 - 0.1 [facility] x10(3)/[facility] LABORATORY Immature Gran % 0.40 % [...] 0.04 0.00 - 0.04 x10(3)/[facility] LABORATORY Specimen Anatomical Collection Method Collection Time Receive d Time (Source) Location / / Volume Laterality Blood 12/10/2021 4:25 AM 4:34 EDT AM EDT Resulting Agency Comment Spec In Lab Morgan BROWN HEMATOLOGY ORDERABLES Performing Organization Address City/[facility]/ZIP Code Phon e Number [address] (ABNORMAL) Hemogram (12/10/2021 4:25 AM EDT) Analysis Performed At Patho logist Time Signature WBC 9.4 4.0 - 9.5 [facility] x10(3)/[facility] LABORATORY RBC 3.81 (L) 4.58 - [facility] 5.54 [facility] x10(6)/[facility] LABORATORY Hemoglobin 11.1 (L) 13.7 - [facility] 16.5 g/dL [facility] LABORATORY Hematocrit 34.0 (L) 40.5 - [facility] 48.5 % [facility] LABORATORY MCV 89.2 82.9 - [facility] 93.1 [facility] LABORATORY MCH 29.1 27.5 - [facility] 32.1 pg [facility] LABORATORY MCHC 32.6 32.0 - [facility] 35.7 g/dL [facility] LABORATORY Platelets 183 145 - 357 [facility] x10(3)/[facility] LABORATORY RDWSD 49.9 (H) 36.0 - [facility] 45.0 [facility] LABORATORY RDWCV 15.2 (H) 11.4 - [facility] 13.8 % [facility] LABORATORY MPV 9.8 7.6 - 12.9 [facility] LABORATORY nRBC % Auto 0.0 % [facility] LABORATORY nRBC Abs Auto 0.000 0.000 - [facility] 0.000 [facility] x10(3)/[facility] LABORATORY Specimen Anatomical Collection Method Collection Time Receive d Time (Source) Location / / Volume Laterality Blood 12/10/2021 4:25 AM 2 4:34 EDT AM EDT Resulting Agency Comment Spec In Lab Morgan BROWN HEMATOLOGY ORDERABLES Performing Organization Address City/State/[place] [address] (ABNORMAL) Prothrombin Time (12/10/2021 4:25 AM EDT) P athologist Signature PT 20.0 (H) 9.4 - 12.5 [facility] LABORATORY INR 1.7 [facility] [...] Organization Address City/State/ZIP Code Phon e Number [place] [id number] HOSPITAL LABORATORY Drive (ABNORMAL) BMP w/fasting Glucose (12/10/2021 4:25 AM EDT) athologist Signature Glucose 210 (H) 65 - 99 [facility] Fasting mg/dL [facility] [...] of Diabetes Mellitus, Position Statement from the [place] [employer]. ??Diabete s Care, Volume 33, [...] City/State/[place] [address] Magnesium (12/10/2021 4:25 AM EDT) P athologist Signature Magnesium 0.95 0.69 - 1.[address] [facility]/L [facility] LABORATORY Specimen Anatomical Collection Method Collection Time Receive d Time (Source) Location / / Volume Laterality Blood 12/10/2021 4:25 AM 2 4:34 EDT AM EDT Resulting Agency Comment Spec In Lab Iker Cuevas MD CHEMISTRY ORDERABLES Performing Organization Address City/[facility]/[place] [address] POCT Glucose (12/10/2021 1:58 AM EDT) athologist Signature POC Glucose 164 65 - 199 [facility] mg/dL [facility] LABORATORY [...] Health/[facility]/[place] [address] (ABNORMAL) POCT Glucose (12/09/2021 9:02 PM EDT) athologist Signature POC Glucose 313 (H) 65 - 199 [facility] mg/dL [facility] LABORATORY [...] Health/[facility]/[place] [address] Heparin (unfractionated) Level (12/09/2021 7:30 PM EDT) athologist Signature Heparin UFH 0.48 IU/mL [facility] LABORATORY Comment: Heparin [...] City/State/[place] [address] (ABNORMAL) Basic Metabolic Panel (non-fasting) (12/09/2021 7:30 PM EDT) athologist Signature Glucose Lvl 372 (H) 65 - 199 [facility] mg/dL [facility] LABORATORY [...] Organization Address City/State/[place] [address] (ABNORMAL) POCT Glucose (12/09/2021 6:34 PM EDT) P athologist Signature POC Glucose 408 (H) 65 - 199 [facility] mg/dL [facility] LABORATORY [...] [facility]/[place] [address] (ABNORMAL) POCT Glucose (12/09/2021 6:32 PM EDT) P athologist Signature POC Glucose 356 (H) 65 - 199 [facility] mg/dL [facility] LABORATORY Comment: Supplemental ranges: <140 mg/dL before meals <180 mg/dL all other times of the day Specimen Anatomical Collection Method Collection Time Receive d Time (Source) Location / / Volume Laterality Blood 12/09/2021 6:32 PM 2 6:32 EDT PM EDT Iker Cuevas MD POINT OF CARE TEST ORDERABLE S Performing Organization Address City/State/[place] [address] (ABNORMAL) POCT Glucose (12/09/2021 4:19 PM EDT) athologist Signature POC Glucose 347 (H) 65 - 199 [facility] mg/dL [facility] LABORATORY [...] Health/[facility]/[place] [address] Heparin (unfractionated) Level (12/09/2021 1:29 PM EDT) athologist Signature Heparin UFH 0.42 IU/mL [facility] LABORATORY Comment: Heparin [...] Organization Address City/State/[place] [address] (ABNORMAL) POCT Glucose (12/09/2021 12:02 PM EDT) P athologist Signature POC Glucose 235 (H) 65 - 199 [facility] mg/dL [facility] LABORATORY [...] Health/[facility]/[place] [address] (ABNORMAL) POCT Glucose (12/09/2021 9:44 AM EDT) P athologist Signature POC Glucose 214 (H) 65 - 199 [facility] mg/dL [facility] LABORATORY [...] Health/[facility]/[place] [address] EKG 12 Lead (12/09/2021 7:57 AM EDT) Component Value Ref Range Test Analysis Performed Pathologis t Method Time At Signature Ventricular rate 101 BPM MUSE SYSTEM Atrial Rate 101 BPM MUSE SYSTEM P-R Interval 150 ms MUSE SYSTEM QRS Duration 112 ms MUSE SYSTEM Q-T Interval 364 ms MUSE SYSTEM QTC Calculated 471 ms MUSE SYSTEM (Bezet) Calculated P [place] 59 degrees MUSE SYSTEM Calculated R [place] -42 degrees MUSE SYSTEM Calculated T [place] 102 degrees MUSE SYSTEM INTERPRETATION Sinus tachycardia Occasional Premature ventricular com plexes MUSE SYSTEM Left axis deviation 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) Abnormal ECG When compared with ECG of 08-DEC-2021 16:40, Premature ventricular complexes are now Present Confirmed by MD Fernandez Danette ([id number]) on 12/10/2021 4:55:06 PM Specimen Anatomical Collection Method Collection Time Receive d Time (Source) Location / / Volume Laterality 12/09/2021 7:57 AM 2 4:55 EDT PM EDT Iker Cuevas MD ECG ORDERABLES Performing Organization Address City/State/ZIP Code Phon e Number MUSE SYSTEM (ABNORMAL) POCT Glucose (12/09/2021 7:28 AM EDT) P athologist Signature POC Glucose 263 (H) 65 - 199 [facility] mg/dL [facility] LABORATORY Comment: Supplemental ranges: <140 mg/dL before meals <180 mg/dL all other times of the day Specimen Anatomical Collection Method Collection Time Receive d Time (Source) Location / / Volume Laterality Blood 12/09/2021 7:28 AM 2 7:28 EDT AM EDT Iker Cuevas MD POINT OF CARE TEST ORDERABLE S Performing Organization Address City/State/[place] [address] (ABNORMAL) Hemoglobin A1c (12/09/2021 [...] Mellitus, Diabetes Care 2013; 36: Suppl. 1, Q96-83 Est Avg Gluc See note mg/dL PROCTOR [...] into estimated average glucose values. ??Diabetes Care 2008:31(8):3222-0068. Specimen Anatomical Collection Method Collection Time Receive d Time (Source) Location / / Volume Laterality Blood Venous Draw / 12/09/2021 6:18 AM 12/10/19 22 Unknown EDT 12:24 PM EDT Resulting Agency Comment Spec In Lab Migdalia BROWN CHEMISTRY ORDERABLES Performing Organization Address City/State/[place] [address] (ABNORMAL) Prothrombin Time (12/09/2021 6:18 AM EDT) athologist Signature PT 26.6 (H) 9.4 - 12.5 [facility] LABORATORY INR 2.3 [facility] [...] Migdalia BROWN HEMATOLOGY ORDERABLES Performing Organization Address City/[facility]/ZIP Code Phon e Number [address] Heparin (unfractionated) Level (12/09/2021 6:18 AM EDT) P athologist Signature Heparin UFH 0.24 IU/mL [facility] LABORATORY Comment: Heparin [...] Cuevas MD HEMATOLOGY ORDERABLES Performing Organization Address City/[facility]/[place] [address] (ABNORMAL) Differential, Automated (12/09/2021 6:18 AM EDT) Patholo gist Method Time Signature Neutrophils % 91.5 % [facility] LABORATORY Neutr Abs (ANC) 15.78 (H) 1.70 - [facility] 6.10 [facility] x10(3)/[facility] LABORATORY Lymphocytes % 2.9 % [facility] LABORATORY Lymphocytes Abs 0.5 (L) 0.9 - 3.2 [facility] x10(3)/[facility] LABORATORY Monocytes % 4.9 % [facility] LABORATORY Monocyte Abs 0.8 0.3 - 0.9 [facility] x10(3)/[facility] LABORATORY Eosinophils % 0.0 % [facility] LABORATORY Eosinophils Abs 0.0 0.0 - 0.4 [facility] x10(3)/[facility] LABORATORY Basophils % 0.2 % [facility] LABORATORY Basophils Abs 0.0 0.0 - 0.1 [facility] x10(3)/[facility] LABORATORY Immature Gran % 0.50 % [...] Abs 0.09 (H) 0.00 - 0.04 x10(3)/[facility] LABORATORY Specimen Anatomical Collection Method Collection Time Receive d Time (Source) Location / / Volume Laterality Blood 12/09/2021 6:18 AM 2 6:33 EDT AM EDT Resulting Agency Comment Spec In Lab Morgan BROWN HEMATOLOGY ORDERABLES Performing Organization Address City/State/[place] [address] (ABNORMAL) Hemogram (12/09/2021 6:18 AM EDT) Analysis Performed At Patho logist Time Signature WBC 17.2 (H) 4.0 - 9.5 [facility] x10(3)/[facility] LABORATORY RBC 4.32 (L) 4.58 - [facility] 5.54 [facility] x10(6)/[facility] LABORATORY Hemoglobin 12.6 (L) 13.7 - [facility] 16.[facility] g/dL [facility] LABORATORY Hematocrit 38.9 (L) 40.5 - [facility] 48.5 % [facility] LABORATORY MCV 90.0 82.9 - [facility] 93.1 [facility] LABORATORY MCH 29.2 27.5 - [facility] 32.1 pg [facility] LABORATORY MCHC 32.4 32.0 - [facility] 35.7 g/dL [facility] LABORATORY Platelets 193 145 - 357 [facility] x10(3)/[facility] LABORATORY RDWSD 50.4 (H) 36.0 - [facility] 45.0 [facility] LABORATORY RDWCV 15.2 (H) 11.4 - [facility] 13.8 % [facility] LABORATORY MPV 9.5 7.6 - 12.9 [facility] [place] LABORATORY nRBC % Auto 0.0 % [facility] LABORATORY nRBC Abs Auto 0.000 0.000 - [facility] x10(3)/[facility] LABORATORY Specimen Anatomical Collection Method Collection Time Receive d Time (Source) Location / / Volume Laterality Blood 12/09/2021 6:18 AM 6:33 EDT AM EDT Resulting Agency Comment Spec In Lab Morgan BROWN HEMATOLOGY ORDERABLES Performing Organization Address City/State/[place] [address] Lipid Panel (Reflex Direct LDL) (12/09/2021 6:18 AM EDT) P athologist Signature Chol, Total 105 mg/dL [facility] LABORATORY Comment: Lower Risk: <200 mg/dL Average Risk: 200-239 mg/dL Higher Risk: >re=162 mg/dL Triglycerides 133 mg/dL [facility] LABORATORY Comment: Average Risk/Lower Risk: <150 mg/dL Borderline High Risk: 150-199 mg/dL High Risk: 200-499 mg/dL Very High Risk: >cu=946 mg/dL HDL 42 mg/dL [facility] LABORATORY Comment: Males: ?? Higher Risk: <40 mg/dL Females: ?? Higher Risk: <50 mg/dL LDL Cholesterol 36 mg/dL [facility] LABORATORY Comment: Lowest Risk: <100 mg/dL Lower Risk: 100-129 mg/dL Borderline High Risk: 130-159 mg/dL High Risk: 160-189 mg/dL Very High Risk: >gt=842 mg/dL Chol/HDL Ratio 2.5 ratio [facility] LABORATORY Lipid Interpretation See Note [facility] LABORATORY Comment: Lipid management should be guided by a p atient? s ASCVD risk, goals and preferences. ACC/AHA Guidelines recommend high intens ity statin if clinical ASCVD or LDL greater than or equal to 190 mg/dL. [email or web address] Adults aged 40-75 with LDL 70-189 mg/dL should have their 10 year ASCVD risk estimated with the ACC/AHA ASCVD risk es timator http://tools.acc.org/GEDYC-Tcql-Upkemlbs r/ Statin should be discussed if risk [...] City/State/[place] [address] TSH (12/09/2021 6:18 AM EDT) athologist Signature TSH 1.60 0.27 - 4.20 [facility] mcIU/mL [facility] LABORATORY Comment: Reference Interval (mcIU/mL): Females: ??First Trimester: 0.23-3.88 ??Second Trimester: 0.22-3.90 ??Third Trimester: 0.44-4.66 Specimen Anatomical Collection Method Collection Time Receive d Time (Source) Location / / Volume Laterality Blood 12/09/2021 6:18 AM 2 6:33 EDT AM EDT Resulting Agency Comment Spec In Lab Iker Cuevas MD CHEMISTRY ORDERABLES Performing Organization Address City/[facility]/ZIP [place] [address] Hepatic Function Panel (12/09/2021 6:18 AM EDT) athologist Signature Total Protein 7.3 6.1 - 8.0 [place] g/dL [facility] LABORATORY Albumin 4.2 3.2 - 5.2 [facility] RYAN g/dL [facility] LABORATORY AST 25 0 - 39 [facility] RYAN unit/L [facility] ALT 15 0 - 55 [place] [facility] unit/L [facility] LABORATORY Alk Phos 75 40 - 130 [place] unit/L [facility] LABORATORY Total 1.1 0.2 - 1.3 [employer] Bilirubin mg/dL [facility] LABORATORY Bili, Direct 0.2 0.0 - 0.3 [place] mg/dL [facility] LABORATORY Specimen Anatomical Collection Method Collection Time Receive d Time (Source) Location / / Volume Laterality Blood 12/09/2021 6:18 AM 2 6:33 EDT AM EDT Resulting Agency Comment Spec In Lab Iker Cuevas MD CHEMISTRY ORDERABLES Performing Organization Address City/[facility] [place] [address] (ABNORMAL) BMP w/fasting Glucose (12/09/2021 6:18 AM EDT) P athologist Signature Glucose 235 (H) 65 - 99 [place] Fasting mg/dL [facility] [...] of Diabetes Mellitus, Position Statement from the [place] [employer]. ??Diabete s Care, Volume 33, [...] Address City/State/ZIP Code Phon e Number [address] Magnesium (12/09/2021 6:18 AM EDT) P athologist Signature Magnesium 0.81 0.69 - 1.07 [facility] mmol/L [facility] LABORATORY Specimen Anatomical Collection Method Collection Time Receive d Time (Source) Location / / Volume Laterality Blood 12/09/2021 6:18 AM 2 6:33 EDT AM EDT Resulting Agency Comment Spec In Lab Iker Cuevas MD CHEMISTRY ORDERABLES Performing Organization Address City/State/[place] [address] (ABNORMAL) Troponin (12/09/2021 6:18 AM EDT) athologist Signature Troponin-T 1.13 (H) 0.00 - [place] 0.00 ng/mL [facility] [...] additional sample may be indicated. Reference: Third Rogers Definition of Myocardial Infarction. Journal of the [place] [employer] 2012;60:1581-98 Specimen Anatomical Collection Method Collection Time Receive d Time (Source) Location / / Volume Laterality Blood 12/09/2021 6:18 AM 6:33 EDT AM EDT Resulting Agency Comment Spec In Lab Iker Cuevas MD CHEMISTRY ORDERABLES Performing Organization Address City/State/ZIP Code Phon e Number [place] [id number]OS[address] LAB[address]ORY Drive XR Chest One View [...] questions please contact the health home care nurse that requested your imaging first. [...] questions please contact the health home care nurse that requested your imaging first. Amber Sanches MD IMG DX ORDERABLES (ABNORMAL) BLOOD GAS 2 ARTERIAL (12/09/2021 5:14 AM EDT) Analysis Performed At Path logis Time Signature pH Art 7.43 7.35 - [facility] 7.45 [facility] LABORATORY pCO2 Art 36 35 - 45 [facility] LABORATORY pO2 Art 67 (L) 85 - 104 [facility] LABORATORY HCO3 Art 23.4 20.0 - [facility] 26.0 [facility] mmol/L [facility] LABORATORY BE Art -0.9 -3.0 - 3.0 [facility] mmol/L [facility] LABORATORY Hgb Blood Gas 13.2 (L) 13.7 - [facility] 16.5 g/dL [facility] LABORATORY O2HB Art 91.3 (L) 94.0 - [facility] 97.0 % [facility] LABORATORY COHB Art 0.4 % [facility] [...] City/State/[place] [address] POCT Glucose (12/09/2021 4:46 AM EDT) athologist Signature POC Glucose 198 65 - 199 [facility] mg/dL [facility] LABORATORY Comment: Supplemental ranges: <140 mg/dL before meals <180 mg/dL all other times of the day Specimen Anatomical Collection Method Collection Time Receive d Time (Source) Location / / Volume Laterality Blood 12/09/2021 4:46 AM 2 4:46 EDT AM EDT Iker Cuevas MD POINT OF CARE TEST ORDERABLE S Performing Organization Address City/State/[place] [address] (ABNORMAL) POCT Glucose (12/09/2021 3:01 AM EDT) athologist Signature POC Glucose 225 (H) 65 - 199 [place] mg/dL [facility] LABORATORY Comment: Supplemental ranges: <140 mg/dL before meals <180 mg/dL all other times of the day Specimen Anatomical Collection Method Collection Time Receive d Time (Source) Location / / Volume Laterality Blood 12/09/2021 3:01 AM 2 3:01 EDT AM EDT Iker Cuevas MD POINT OF CARE TEST ORDERABLE S Performing Organization Address City/State/[place] [address] (ABNORMAL) POCT Glucose (12/08/2021 10:55 PM EDT) athologist Signature POC Glucose 327 (H) 65 - 199 [facility] [place] mg/dL [facility] LABORATORY Comment: Supplemental ranges: <140 mg/dL before meals <180 mg/dL all other times of the day Specimen Anatomical Collection Method Collection Time Receive d Time (Source) Location / / Volume Laterality Blood 12/08/2021 10:55 12/08/2021 PM EDT 10:55 PM EDT Iker Cuevas MD POINT OF CARE TEST ORDERABLE S Performing Organization Address City/State/[place] [address] Heparin (unfractionated) Level (12/08/2021 10:03 PM EDT) P athologist Signature Heparin UFH 0.18 IU/mL [facility] LABORATORY Comment: Heparin [...] City/State/[place] [address] (ABNORMAL) Troponin (12/08/2021 10:03 PM EDT) athologist Signature Troponin-T 0.92 (H) 0.00 - [facility] 0.00 ng/mL [facility] [...] additional sample may be indicated. Reference: Third Rogers Definition of Myocardial Infarction. Journal of the [place] [employer] 2012;60:1581-98 Specimen Anatomical Collection Method Collection Time Receive d Time (Source) Location / / Volume Laterality Blood 12/08/2021 10:03 12/08/2021 PM EDT 10:31 PM EDT Resulting Agency Comment Spec In Lab Iker Cuevas MD CHEMISTRY ORDERABLES Performing Organization Address City/[facility]/[place]IP [place] [address] (ABNORMAL) POCT Glucose (12/08/2021 8:22 PM EDT) athologist Signature POC Glucose 429 (H) 65 - 199 [facility] RYAN mg/dL [facility] LABORATORY [...] [facility]/[place]IP [place] [address] (ABNORMAL) POCT Glucose (12/08/2021 7:06 PM EDT) P athologist Signature POC Glucose 442 (H) 65 - 199 [place] [facility] mg/dL [facility] LABORATORY [...] Health/[facility]/[place] [address] Magnesium (12/08/2021 6:02 PM EDT) athologist Signature Magnesium 0.86 0.69 - 1.07 [facility] mmol/L [facility] LABORATORY Specimen Anatomical Collection Method Collection Time Receive d Time (Source) Location / / Volume Laterality Blood 12/08/2021 6:02 PM 6:36 EDT PM EDT Resulting Agency Comment Spec In Lab Iker Cuevas MD CHEMISTRY ORDERABLES Performing Organization Address City/State/ZIP Code Phon e Number [address] (ABNORMAL) Basic Metabolic Panel (non-fasting) (12/08/2021 6:02 PM EDT) athologist Signature Glucose Lvl 392 (H) 65 - 199 [facility] mg/dL [facility] LABORATORY [...] Organization Address City/State/[place] [address] (ABNORMAL) Differential, Automated (12/08/2021 6:02 PM EDT) [facility] gist Method Time Signature Neutrophils % 89.5 % [facility] LABORATORY Neutr Abs (ANC) 13.97 (H) 1.70 - [facility] 6.10 [facility] x10(3)/[facility] LABORATORY Lymphocytes % 3.7 % [facility] LABORATORY Lymphocytes Abs 0.6 (L) 0.9 - 3.2 [facility] x10(3)/[facility] LABORATORY Monocytes % 6.1 % [facility] LABORATORY Monocyte Abs 1.0 (H) 0.3 - 0.9 [facility] x10(3)/[facility] LABORATORY Eosinophils % 0.0 % [facility] LABORATORY Eosinophils Abs 0.0 0.0 - 0.4 [facility] x10(3)/[facility] LABORATORY Basophils % 0.2 % [facility] LABORATORY Basophils Abs 0.0 0.0 - 0.1 [facility] x10(3)/[facility] LABORATORY Immature Gran % 0.50 % [...] City/State/[place] [address] (ABNORMAL) Hemogram (12/08/2021 6:02 PM EDT) Analysis Performed At Patho logist Time Signature WBC 15.6 (H) 4.0 - 9.5 [facility] x[facility] LABORATORY RBC 4.05 (L) 4.58 - [facility] RYAN 5.54 [facility] x10(6)/[facility] LABORATORY Hemoglobin 11.8 (L) 13.7 - [facility] 16.5 g/dL [facility] LABORATORY Hematocrit 35.8 (L) 40.5 - [facility] 48.5 % [facility] LABORATORY MCV 88.4 82.9 - [facility] 93.1 [facility] LABORATORY MCH 29.1 27.5 - [facility] RYAN 32.1 pg [facility] LABORATORY MCHC 33.0 32.0 - [facility] 35.7 g/dL [facility] LABORATORY Platelets 178 145 - 357 [facility] LABORATORY RDWSD 49.3 (H) 36.0 - [facility] RYAN 45.0 [facility] LABORATORY RDWCV 15.1 (H) 11.4 - [facility] RYAN 13.8 % [facility] LABORATORY MPV 10.4 7.6 - 12.9 [facility] [place] LABORATORY nRBC % Auto 0.0 % [facility] LABORATORY nRBC Abs Auto 0.000 0.000 - [place] 0.000 [facility] x10(3)/[facility] LABORATORY Specimen Anatomical Collection Method Collection Time Receive d Time (Source) Location / / Volume Laterality Blood 12/08/2021 6:02 PM 2 6:36 EDT PM EDT Resulting Agency Comment Spec In Lab Morgan BROWN HEMATOLOGY ORDERABLES Performing Organization Address City/State/ZIP Code [place] [address] (ABNORMAL) Troponin (12/08/2021 6:02 PM EDT) athologist Signature Troponin-T 0.89 (H) 0.00 - [place] 0.00 ng/mL [facility] [...] additional sample may be indicated. Reference: Third Rogers Definition of Myocardial Infarction. Journal of the [place] [employer] 2012;60:1581-98 Specimen Anatomical Collection Method Collection Time Receive d Time (Source) Location / / Volume Laterality Blood 12/08/2021 6:02 PM 2 6:36 EDT PM EDT Resulting Agency Comment Spec In Lab Iker Cuevas MD CHEMISTRY ORDERABLES Performing Organization Address City/State/ZIP Code [place] [address] COVID-19 PCR (12/08/2021 5:00 PM EDT) [facility] Method Time Signature SARS-CoV-2 Not [...] using the Simplexa COVID-19 Direct Assay by Ubiquisysjoi marcum as authorized by the FDA issued [...] Department of Pathology and Laboratory Medicine at [facility], certified under the Clinical Laboratory Improvement Amendmen [...] clinical management guidance information are available at [facility] [address] Coronavirus Disease 2019 (COVID-19) webpage under Information fo r Healthcare Professionals (https://www.cdc.gov/coronavirus/2019-nc ov/hcp/index.html). Additional information about this and ot her EUA tests can be found in provider and patient fact sheets at the following FDA website: https://www.fda.gov/medical-devices/htxfvgwrsec-yhtmaif-0116-jrxrl-87-rygndfuou- trg-livqunlztmfddi-hrlqmiy-devices/mxcti-nszjbnziakq-wjpo SARS-CoV-2 Source SANDER HAND Swab [facility] LABORATORY Specimen (Source) Anatomical Collection Method Collection Time Re ceived Time Location / / Volume Laterality Nasopharyngeal Swab 12/08/2021 5:00 12/08 PM EDT 6:03 PM EDT Comment: Symptoms->Surveillance Resulting Agency Comment Spec In Lab Iker Cuevas MD MICROBIOLOGY - GENERAL ORDER [place] Performing Organization Address City/[facility] Phon e Number [place] [id number] HOSP[address] LABORATORY Drive EKG 12 Lead (12/08/2021 4:40 PM EDT) Component Value Ref Range Test Analysis Performed Pathologis t Method Time At Signature Ventricular rate 78 BPM MUSE SYSTEM Atrial Rate 78 BPM MUSE SYSTEM P-R Interval 152 ms MUSE SYSTEM QRS Duration 96 ms MUSE SYSTEM Q-T Interval 396 ms MUSE SYSTEM QTC Calculated 451 ms MUSE SYSTEM (Bezet) Calculated P [place] 44 degrees MUSE SYSTEM Calculated R [place] -31 degrees MUSE SYSTEM Calculated T [place] 124 degrees MUSE SYSTEM INTERPRETATION Normal sinus [...] Cuevas MD ECG ORDERABLES Performing Organization Address City/[facility] Phon e Number MUSE SYSTEM (ABNORMAL) POCT Glucose (12/08/2021 4:34 PM EDT) P athologist Signature POC Glucose 400 (H) 65 - 199 [facility] mg/dL [facility] LABORATORY [...] Phon [place] [address] documented in this encounter [...] Coronary atherosclerosis of unspecified type of vessel, [place] or graft Cardiomyopathy, ischemic Other specified forms [...] DO NOT CRUSH OR OPEN, Routine 1230 ([facility] Unhold - Provider: Admin Adt) [...] (Glutose) 40% oral geL(Linked Group 2) 0805 ([facility] Hold - Provider: Admin Adt - Reason: Transfer to a Procedural area)1230 ([facility] Unhold - Provider: Admin Adt) [...] (Intra-Procedure), Routine niCARdipine (Cardene) (100 mcg/mL) dilution (HEAT REGULATOR) (CANCELED) 1030 (Given - Provider: Vitaliy Nobles [...] mg per tablet 1 tab let 0805 ([facility] Hold - Provider: Admin Adt - Reason: Transfer to a Procedural area)1230 ([facility] Unhold - Provider: Admin Adt) 1 tablet, Oral, 2 TIMES DAILY PRN, Start ing on Wed12/09/21 at 1628, Until Wed12/12/21 at 1312, Constipation, Routine sodium chloride 0.9 % (flush) (BD PosiFlush Normal Sean ine 0.9) flush 5-20 mL 0805 ([facility] Hold - Provider: Admin Adt - Reason: Transfer to a Procedural area)1230 ([facility] Unhold - Provider: Admin Adt) [...] episode. & nbsp; For persistent hypoglycemia, con maintenance custodian longer-acting treatment for the duration of the [...]
Routine documented in this encounter Care Teams Marketing Communications Leader Relationship Specialty Start Date End Date Lovely Vicente MD PCP - General 04/16/15 [address] [place] [address] documented as of this encounter
--- OUTSIDE RECORDS SUMMARY | 2022-04-15 08:17 | XMS_ITS | Encounter Summary ---
:1945 [place] [address] Care Team Providers Name Role Phone Lovely Vicente MD Primary Care Provider Encounter Details Date Type Department Care Team Description 03/20/2021 Telephone Neurology at [facility] Hugo Gaston MD [facility] [place] [address] [place] [address] [phone] (Wo rk) Social History Tobacco Use Types [...] Gaston MD Department of Neurology Pager # [phone] documented in this encounter Plan of Treatment Upcoming Encounters Date Type Specialty Care Team Description 05/28/2022 Appointment Cardiology Zulma Dolan MD [facility] [place], [place] [address] (Wo rk) 05/28/2022 Laboratory Appointment Lab 05/28/2022 Office Visit Cardiology Zulma Dolan MD [facility] [place] [address] Liz Poole PA [facility] [place] [address] 06/10/2022 Office Visit Dermatology Laura Scherer MD [facility] [address] [place], [place] [address] (Wo rk) documented as of this encounter Visit Diagnoses Not on filedocumented in this encounter Care Teams Blowing Weasand Relationship Specialty Start Date End Date Lovely Vicente MD PCP - General 04/16/[address] [place] [address] documented as of this encounter
--- OUTSIDE RECORDS SUMMARY | 2022-04-15 08:17 | XMS_ITS | Encounter Summary ---
:1945 Author Organization [facility] [place] [place] [address] Care Team Providers Name Role Phone Lovely Vicente MD Primary Care Provider Reason for Referral Diagnostic Test (Routine) - Closed Specialty Diagnoses / Procedures Referred By Contact Refer red To Contact Cardiology Diagnoses Chronic systolic heart failure Danette Maxwell APRN [facility] Non-Inv Card Lab Procedures Echocardiogram Transthoracic(Leb) [facility] [place] [address] [place] [address] Referral ID Status Reason Start Date Expiration Date Visits V isits Requested Authorized [id number] Closed Specialty 07/17/2019 09/14/2019 1 1 Service Requested Reason for Visit Diagnostic Test (Routine) - Closed Specialty Diagnoses / Procedures Referred By Contact Refer red To Contact Cardiology Diagnoses Chronic systolic heart failure Danette Maxwell APRN [facility] Non-Inv Card Lab Procedures Echocardiogram Transthoracic(Leb) [facility] [place] [address] [place] [address] [place] [address] Referral ID Status Reason Start Date Expiration Date Visits V isits Requested Authorized [id number] Closed Specialty 07/17/2019 09/14/2019 1 1 Service Requested Encounter Details Date Type Department Care Team Description 07/28/2019 Hospital Encounter Non-Invasive Chronic s ystolic heart [place] [address] Social History Tobacco Use Types Packs/Day [...] Dolan MD [facility] [address] [place], [place] [address] (Wo rk) 05/28/2022 Laboratory Appointment Lab 05/28/2022 Office Visit Cardiology Zulma Dolan MD [facility] [place] [address] Liz Poole PA [facility] [place] [address] 06/10/2022 Office Visit Dermatology Laura Scherer MD [facility] [address] [place], [place] [address] (Wo rk) documented as of [...] Mccollum ? (Age): 1945(74y) Med Rec#: ? [id number] ?Sex: ?M ? Site Loc: ? [facility] ?Ht / Wt: ??172(cm)/81(kg) Pt. Loc: ?Echo Lab ?BSA: ?1.94 Study Date: ?? 07/28/2019 ?Pt. Type: Outpatient Tape: ? Referring: MARY ELLEN Reading: Ifeanyi Truong ([id number]) Cold Type Composing Machine Operator: Fadumo Flanagan RDCS, FASE Diagnosis: *Chronic [...] E-wave Vmax ?1 ?m/sec ? MV deceleration macd797.5 ? msec ? MV A-wave Vmax ?1 [...] ? Pulmonic Valve/Qp:Qs ?Value ?Units (Range) ? MD end-diastolic Vma1.1 ?m/sec ? Wall Motion: Segment Name ?Rest ? Base-Anteroseptal ?? Normal ? Base-Anterior ? Normal ? Base-Anterolateral ??Normal ? Base-Posterolateral Normal ? Base-Inferior ? Akinetic ? Base-Inferoseptal ?? Normal ? Mid-Anteroseptal ?Normal ? Mid-Anterior ?Hypokinetic ? Mid-Anterolateral ?? Normal ? Mid-Posterolateral ??Normal ? Mid-Inferior ?Hypokinetic ? Mid-Inferoseptal ?Normal ? [place]-Septal ? Normal ? [place]-Anterior ? Hypokinetic ? [place]-Lateral ?Normal ? [place]-Inferior ? Akinetic ? [place]-Tip ?Hypokinetic ? This report has been electronically sign ed by: _ Ifeanyi Truong M.D. ? 07/28/2019 0 8:38:01 Images reviewed and interpretation verif ied [facility] Cardiac Ultrasound Laboratory Procedure Note Ifeanyi Truong MD - 07/28/2019Formatt ing of this note might be different from the original. Procedure: Transthoracic Echocardiogram Patient: NATALYA MCBRIDE(Age): [birth year]74y) Med Rec#: [id number] Sex: M Site Loc: [facility] Ht / Wt: 172(cm)/81(kg) Pt. Loc: Echo Lab BSA: 1.94 Study Date: 07/28/2019 Pt. Type: Outpati ent Tape: Referring: MARY ELLEN Reading: Ifeanyi Truong ([id number]) Cold Type Composing Machine Operator: Fadumo Flanagan [facility] Diagnosis: *Chronic systolic (congestive) heart [...] MV E-wave Vmax 1 m/sec MV deceleration wbvc194.5 msec MV A-wave Vmax 1 m/sec MV [...] 0.7 ratio Pulmonic Valve/Qp:Qs Value Units (Range) MD end-diastolic Vma1.1 m/sec Wall Motion: Segment Name Rest Base-Anteroseptal Normal Base-Anterior Normal Base-Anterolateral Normal Base-Posterolateral Normal Base-Inferior Akinetic Base-Inferoseptal Normal Mid-Anteroseptal Normal Mid-Anterior Hypokinetic Mid-Anterolateral Normal Mid-Posterolateral Normal Mid-Inferior Hypokinetic Mid-Inferoseptal Normal [place]-Septal Normal [place]-Anterior Hypokinetic [place]-Lateral Normal [place]-Inferior Akinetic [place]-Tip Hypokinetic This report has been electronically sign ed by: _ Ifeanyi Truogn M.D. 07/28/2019 08:38:0 1 Images reviewed and interpretation elvie hwang [facility] Cardiac Ultrasound Laboratory Danette A Hans QUINONES [...] in this encounter Care Teams Oral Surgery Physician Relationship Specialty Start Date End Date Lovely Vicente MD PCP - General 04/16/[address] [place] [address] documented as of this encounter
--- OUTSIDE RECORDS SUMMARY | 2022-04-15 08:17 | XMS_ITS | Encounter Summary ---
:1945 Author Organization [facility] Address [address] [facility] [address] [place] [address] Care Team Providers Name Role Phone Lovely Vicente MD Primary Care Provider Encounter Details Date Type Department Care Team Description 01/02/2020 Office Visit Dermatology at [facility] ctinic keratoses; Abdelrahman HOOPER MD History of melanoma; [address] [facility] History of dysplastic nevus; [place] [address] Multiple benign nevi; [phone] [facility] Seborrheic yossi [place]; RD[address]DERMATOLGY Skin exam for malignant neoplasm [place], [place] [address] Social History Tobacco Use Types [...] encounter. Rigoberto Garcia MD Section of Dermatology [facility] documented in this encounter Plan of Treatment Upcoming Encounters Date Type Specialty Care Team Description 05/28/2022 Appointment Cardiology Zulma Dolan MD [facility] [address] [place], [place] [address] (Wo lissa) 05/28/2022 Laboratory Appointment Lab 05/28/2022 Office Visit Cardiology Zulma Dolan MD [facility] [place] [address] Liz Poole PA [facility] [place] [address] 06/10/2022 Office Visit Dermatology Laura Scherer MD [facility] DR [address] [place], [place] [address] (Wo lissa) documented as of [...] documented in this encounter Care Teams Legal Document Assistant Relationship Specialty Start Date End Date Lovely Vicente MD PCP - General 04/16/15 [facility] [address] [place] [address] documented as of this encounter
--- OUTSIDE RECORDS SUMMARY | 2022-04-15 08:17 | XMS_ITS | Encounter Summary ---
:1945 Author Organization [facility] [place] [address] Care Team Providers Name Role Phone Lovely Vicente MD Primary Care Provider Reason for Visit Auth/Cert Specialty Diagnoses / Procedures Referred By Contact Refer red To Contact Diagnoses NSTEMI Procedures emerg ipi Referral ID Status Reason Start Date Expiration Date Visits Requ ested Visits Authorized [id number] 1 1 Encounter Details Date Type Department Care Team Description 12/10/2021 Surgery Director Digital Catalogue Asa Coulter MD CARDIAC CATHETERIZATION [facility] DR [place]idd[place] [address] [place] [address] [phone] (Wo rk) Social History Tobacco Use Types [...] Don Fatima Patient Age: 76 y.o. Language: Swazi Race: White Ethnicity: Not nor Admit date: [...] Peter PA-C Kelly LaFlamme PA-C Cardiovascular Medicine [phone] Discharge Diagnoses (Hospital Problems) and Secondary Diagnoses [...] 3.75 guiding catheter and a 3.5 Fr [place] 20 Mhz using Manual pullback. Imaging was successful. Image quality was good. The ostial LCX showed moderate diffuse atherosclerotic plaque with scattered three quadrant calcification. Measurements were performed after pre-dilation. Post Intervention: The stent was well expanded and apposed. Intravascular Ultrasound was performed in the distal LM using a 7 Fr EBU 3.75 guiding catheter and a 3.5 Fr [place] 20 Mhz using Manual pullback. Imaging was successful. Image quality was good. The distal LM showed moderate diffuse atherosclerotic plaque. Post Intervention: The stent was well expanded and apposed. Indication for Intervention: Coronary intervention was indicated for primary therapy for an acute myocardial infarction. The priority for the procedure was Urgent. The [facility] indication for the procedure was [...] may require modification of this regimen. Consult [facility] Interventional Cardiology for [...] appointments: During 8am-5pm Wednesday through Wednesday call [phone] to speak with a nurse in the cardiology clinic All other times call [phone] and ask to speak to the manager of business conductor road freight. Return to work: One week Driving: No driving for 48 hours after catheterization. Follow up Appointments: PCP Lovely Vicente MD [phone] to see patient at the end of December for annual check up. Patient to see Dr. Lorenzana at 1120 am at December 19 for a post hospital check up. Print Shop Chief Clerk Dr. De Oliveira to see you in [facility]. Left a message for office to set a date and time. Please call [phone] Nobles to see the patient for a same day cath in 2-3 weeks from now. Office to call with a date and time. For questions please call [phone] Home oxygen therapy: N/A Arrangements for VNA/home care: none Future Appointments and Orders Future Orders Complete By Expires Basic Metabolic Panel (non-fasting) [LAB15 Custom] 12/19/2021 (Approximate) 12/12/2022 Process Instructions: INCLUDES: Calcium, BUN, Creat, GFR, Glucose, Lytes Scheduling Instructions: Comments: Questions: Referral to Cardiac Rehab [EPT333 Custom] As directed Process Instructions: If no [...] appointments: During 8am-5pm Wednesday through Wednesday call [phone] to speak with a nurse in the cardiology clinic All other times call [phone] and ask to speak to the manager of business conductor road freight. Return to work: One week Driving: No driving for 48 hours after catheterization. Follow up Appointments: PCP Lovely Vicente MD [phone] to see patient at the end of December for annual check up. Patient to see Dr. Lorenzana at 1120 am at December 19 for a post hospital check up. Print Shop Chief Clerk Dr. De Oliveira to see you in [facility]. Left a message for office to set a date and time. Please call [phone] Nobles to see the patient for a same day cath in 2-3 weeks from now. Office to call with a date and time. For questions please call [phone] Home oxygen therapy: N/A Arrangements for VNA/home [...] Progress Note Patient Name: Don Fatima Service: ALARM INSTALLER / PA Responsible Attending: Ifeanyi Truong MD [...] was given Lasix 80mg IV x1 in canvas shop laborer. Tolerated procedure well. Home today at [...] with MD Janneth Neville PA 12/12/2021 Pager [phone] Associated attestation - Ifeanyi Truong MD - [...] ratio for each meal) Desirae Jett APRN [facility] Endocrinology Diabetes Management Pager [phone] 20 minutes of this 35 minute visit [...] Progress Note Patient Name: Don Fatima Service: ALARM INSTALLER / PA Responsible Attending: Iker Cuevas MD [...] was given Lasix 80mg IV x1 in canvas shop laborer. Tolerated procedure well. Review of Systems: [...] Intake/Output Summary (Last 24 hours) at 12/11/2021 0930 Last data filed at 12/11/2021 0508 Gross [...] and answered his questions. Iker Cuevas MD [facility] Total time spent on review of records prior to visit, face to face time with patient during visit, documentation, and coordination of care with other clinicians: 25 minutes. . Iker Cuevas MD - 12/10/2021 12:30 PM EDT Images from the original note were not included. Inpatient Cardiology Progress Note Patient Name: Don Fatima Service: ALARM INSTALLER / PA Responsible Attending: Iker Cuevas MD [...] was given Lasix 80mg IV x1 in canvas shop laborer. Tolerated procedure well. Review of Systems: [...] TROPONINT 1.13* 0.92* 0.89* Pertinent Radiographic/Diagnostic Results: R/[facility] 12/10/21 Hemodynamics: Right Heart Pressures Resting: [...] Discussed with MD Migdalia Peter PA-C Pager #[phone] 12/10/2021 Cardiology Attending Note I have seen [...] updated and given pictures. Iker Cuevas MD [facility] Total time spent on review of records prior to visit, face to face time with patient during visit, documentation, and coordination of care with other clinicians: 35 minutes. Iker Cuevas MD - 12/09/2021 7:28 AM EDT Images from the original note were not included. Inpatient Cardiology Progress Note Patient Name: Don Fatima Service: ALARM INSTALLER / PA Responsible Attending: Iker Cuevas MD [...] Discussed with MD Migdalia Peter PA-C Pager #[phone] 12/09/2021 Cardiology Attending Note I have seen [...] < 70 -CPAP tonight Iker Taverass MD [facility] Total time spent on review [...] [facility] MAIN OR ??? PRO AMPUTATION FOOT, TRANSMETATARSAL Right 08/09/2017 AMPUTATION, TRANSMETATARSAL (WRVU 12.71) performed by Yonathan Smith MD at [facility] MAIN OR ??? PRO CABG, ARTERIAL, SINGLE N/A 07/07/2017 @CABG, USING ARTERIAL GRAFT;SINGLE ARTERIAL GRAFT (WRVU 33.75) performed by Yuan Retana MD at [facility] MAIN OR ??? PRO CABG, ARTERY-VEIN, TWO N/A 07/07/2017 @CABG, TWO VENOUS GRAFTS & ARTERIAL GRAFT (WRVU 7.93) performed by Yuan Retana MD at [facility] MAIN OR ??? PRO COLONOSCOPY, REMV LESN, SNARE 01/16/2014 COLONOSCOPY, POLYPECTOMY, REMOVAL LESION BY SNARE performed by Nohemi Jaimes MD at [facility] ENDOSCOPY ??? PRO DRESSING CHANGE UNDER ANESTHESIA Right 08/11/2017 (MSURG) DRESSING CHANGE (FOR OTHER THAN IVAN) UNDER ANES. (WRVU 0.86) performed by Lamar Smith MD at [facility] MAIN OR ??? PRO ENDOSCOPY W/VIDEO-ASST VEIN HARVEST, CABG Right 07/07/2017 ENDOSCOPIC HARVEST VEIN(S) FOR CABG (WRVU 0.31) performed by Yuan Retana MD at [facility] [...] Monitor for ADRs. Trend troponins. Admission EKG. [facility] 12/09; consented. TTE. Telemetry monitoring, daily [...] code #Diet-carb control; n.p.o. after midnight for [facility] #DVT prophy- heparin infusion #GI prophy- PPI Discussed with MD Mrogan Peter PA-C APP2 pager [phone] 12/08/2021 Cardiology Attending Note I have seen [...] is type 1 due to graft or [place] coronary stenosis vs acute injury from CHF. 3. PAF: currrently in NSR. Have replaced warfarin with heparin 4. PAD: stable 5. DM: stable 6. CKD: will monitor and minimize contrast. Pt very appreciative of Dr. Yuan Retana's care in 2018. Will let him know patient is here. Iker Cuevas MD [facility] documented in this encounter Miscellaneous [...] Type: *No Product type* / Secondary Insurance: [employer] [place] Prescription Coverage: Yes This plan was [...] cath without complications. Migdalia Parker PA-C Pager #[phone] 12/10/2021 Initial Assessments - Nick Georges RN [...] COVID test: Lab Results Component Value Date [id number] Not Detected 12/08/2021 Past medical History: Past [...] 180 days) Any patient receiving care at [facility] must abide by [place] law. The hierarchy [...] - standard, cane - straight Home Address: [address] [place] [address] [place] [address] Social & Family Supports: All names listed below confirmed with patient as current and correct Extended Emergency Contact Information Primary Emergency Contact: Kisha Fatima Address: [address] [place] [address] [place] [address] [facility] Mobile Relation: Spouse Secondary Emergency Contact: Elba Swenson Address: [place], [place] [id number] [place] [address] Mobile Relation: Child Current Care Provided by: [...] *No Product type* / Secondary Insurance: [facility] Prescription Coverage: Yes Preferred Pharmacy: [facility] [id number] [address] - [place], [place] - [address] [address] [place] Status: Patient is a : unable to assess Primary Care Provider: Lovely Vicente MD [phone] Patient/Caregiver Goals of Treatment: Get out of here Potential Needs for Transition of Care: none Agency Referrals: none patient has used [facility] in the past Transportation: no concerns Transportation Anticipated: family or friend will provide Concerns to be Addressed: patient refuses services, discharge planning Assessment: Patient is admitted to [facility] [place] [facility] Service pager [phone] for 76 y.o.??male??with h/o??CAD s/p 3vCABG (THOMPSON-LAD, [...] status on current unit. Nick Georges RN industrial boilermaker, Office of Care Management Pager: [phone] Brief Op Note - Vitaliy Nobles MD - 12/10/2021 8:31 AM EDT Images from the original note were not included. [place] [address] CORONARY ANGIOGRAM AND PERCUTANEOUS CORONARY INTERVENTION REPORT Patient: Don Fatima : 1945 MR number: [id number] Date of Service: 12/10/2021 Production Operations Engineer: Vitaliy Nobles MD Fellow: [place] MD [...] andis managed by his PCP. Lives in [place] with his . States that he [...] your patient Desirae Jett APRN Endocrinology Pager [phone] 70 minutes of this 80 minute visit [...] for further details. STEPHANIE Rebolledo 12/08/2021 Pager [phone] documented in this encounter Plan of Treatment Upcoming Encounters Date Type Specialty Care Team Description 05/28/2022 Appointment Cardiology Zulma Dolan MD [facility] [place], [place] [address] (Wo lissa) 05/28/2022 Laboratory Appointment Lab 05/28/2022 Office Visit Cardiology Zulma Dolan MD [facility] [place] [address] Liz Poole PA [facility] [place] [address] 06/10/2022 Office Visit Dermatology Laura Scherer MD [facility] DR [address]JA [address], [place] [address] (Wo rk) Scheduled Referrals Name [...] 215 (H) 65 - 199 [facility] mg/dL [facility] Comment: Supplemental ranges: <140 mg/dL before meals <180 mg/dL all other times of the day Specimen Anatomical Collection Method Collection Time Receive d Time (Source) Location / / Volume Laterality Blood 12/12/2021 7:42 AM 7:42 EDT AM EDT Ifeanyi Truong MD POINT OF CARE TEST ORDERABLE S Performing Organization Address City/State/[place] [address] (ABNORMAL) Differential, Automated (12/12/2021 4:51 AM EDT) athologist Signature Neutrophils % 75.4 % [facility] Neutr Abs (ANC) 5.95 1.70 - [facility] 6.10 [facility] x10(3)/[facility] LABORATORY Lymphocytes % 12.2 % [facility]OR[facility]ORY Lymphocytes Abs 1.0 0.9 - 3.2 [facility] x10(3)/[facility] LABORATORY Monocytes % 9.5 % [facility]OR[facility]ORY Monocyte Abs 0.8 0.3 - 0.9 [facility] x10(3)/[facility] LABORATORY Eosinophils % 1.8 % [facility]OR[facility]ORY Eosinophils Abs 0.1 0.0 - 0.4 [facility] x10(3)/[facility] LABORATORY Basophils % 0.5 % [facility]ORY Basophils Abs 0.0 0.0 - 0.1 [facility] x10(3)/[facility] LABORATORY Immature Gran % 0.60 % [facility] [...] 0.05 (H) 0.00 - 0.04 x10(3)/[facility] LABORATORY Specimen Anatomical Collection Method Collection Time Receive d Time (Source) Location / / Volume Laterality Blood 12/12/2021 4:51 AM 2 5:06 EDT AM EDT Resulting Agency Comment Spec In Lab Bijan Sun MD HEMATOLOGY ORDERABLES Performing Organization Address City/State/ZIP Code Phon e Number [address] (ABNORMAL) Hemogram (12/12/2021 4:51 AM EDT) Analysis Performed At Patho logist Time Signature WBC 7.9 4.0 - 9.5 [facility] x[facility](3[facility] LABORATORY RBC 4.19 (L) 4.58 - [place] 5.54 [facility] x10(6)/[facility] LABORATORY Hemoglobin 12.1 (L) 13.7 - [place] 16.5 g/dL [facility] Hematocrit 36.7 (L) 40.5 - [facility] 48.5 % [facility] MCV 87.6 82.9 - [facility] 93.1 [facility] LABORATORY MCH 28.9 27.5 - [place] 32.1 pg [facility] MCHC 33.0 32.0 - [place] 35.7 g/dL [facility] Platelets 231 145 - 357 [facility] x10(3)/[facility] LABORATORY RDWSD 47.2 (H) 36.0 - [facility] RYAN 45.0 [facility] LABORATORY RDWCV 14.6 (H) 11.4 - [facility] RYAN 13.8 % [facility] MPV 9.5 7.6 - 12.9 [facility] R[facility] LABORATORY nRBC % Auto 0.0 % [facility] nRBC Abs Auto 0.000 0.000 - [place] 0.000 [facility] x10(3)/[facility] LABORATORY Specimen Anatomical Collection Method Collection Time Receive d Time (Source) Location / / Volume Laterality Blood 12/12/2021 4:51 AM 2 5:06 EDT AM EDT Resulting Agency Comment Spec In Lab Bijan Sun MD HEMATOLOGY ORDERABLES Performing Organization Address City/[facility]/[place] [address] (ABNORMAL) Prothrombin Time (12/12/2021 4:51 AM EDT) athologist Signature PT 14.9 (H) 9.4 - 12.5 [facility] LABORATORY INR 1.3 [facility] [...] Address City/State/[place] [address] (ABNORMAL) BMP w/fasting Glucose (12/12/2021 4:51 AM EDT) athologist Signature Glucose 152 (H) 65 - 99 [facility] Fasting mg/dL [facility] Comment: ?Fasting* Glucose Interpretive C [...] Organization Address City/State/[place] [address] Magnesium (12/12/2021 4:51 AM EDT) athologist Signature Magnesium 1.02 0.69 - 1.07 [place] mmol/L [facility] Specimen Anatomical Collection Method Collection Time Receive d Time (Source) Location / / Volume Laterality Blood 12/12/2021 4:51 AM 2 5:06 EDT AM EDT Resulting Agency Comment Spec In Lab Iker Cuevas MD CHEMISTRY ORDERABLES Performing Organization Address City/[facility]/ZIP Code Phon e Number [address] POCT Glucose (12/12/2021 3:43 AM EDT) athologist Signature POC Glucose 138 65 - 199 [place] mg/dL [facility] Comment: Supplemental ranges: <140 mg/dL before meals <180 mg/dL all other times of the day Specimen Anatomical Collection Method Collection Time Receive d Time (Source) Location / / Volume Laterality Blood 12/12/2021 3:43 AM 2 3:43 EDT AM EDT Iker Cuevas MD POINT OF CARE TEST ORDERABLE S Performing Organization Address City/State/ZIP Code Phon e Number [address] POCT Glucose (12/11/2021 11:44 PM EDT) athologist Signature POC Glucose 124 65 - 199 [place] mg/dL [facility] Comment: Supplemental ranges: <140 mg/dL before meals <180 mg/dL all other times of the day Specimen Anatomical Collection Method Collection Time Receive d Time (Source) Location / / Volume Laterality Blood 12/11/2021 11:44 12/11/2021 PM EDT 11:44 PM EDT Iker Cuevas MD POINT OF CARE TEST ORDERABLE S Performing Organization Address City/State/ZIP Code Phon e Number [address] (ABNORMAL) POCT Glucose (12/11/2021 8:12 PM EDT) athologist Signature POC Glucose 200 (H) 65 - 199 [place] mg/dL [facility] Comment: Supplemental ranges: <140 mg/dL before meals <180 mg/dL all other times of the day Specimen Anatomical Collection Method Collection Time Receive d Time (Source) Location / / Volume Laterality Blood 12/11/2021 8:12 PM 2 8:12 EDT PM EDT Iker Cuevas MD POINT OF CARE TEST ORDERABLE S Performing Organization Address City/State/[place] [address] (ABNORMAL) POCT Glucose (12/11/2021 6:50 PM EDT) P athologist Signature POC Glucose 245 (H) 65 - 199 [place] mg/dL [facility] Comment: Supplemental ranges: <140 mg/dL before meals <180 mg/dL all other times of the day Specimen Anatomical Collection Method Collection Time Receive d Time (Source) Location / / Volume Laterality Blood 12/11/2021 6:50 PM 2 6:50 EDT PM EDT Iker Cuevas MD POINT OF CARE TEST ORDERMATTHEW S Performing Organization Address City/State/[place] [address] (ABNORMAL) POCT Glucose (12/11/2021 4:00 PM EDT) P athologist Signature POC Glucose 383 (H) 65 - 199 [facility] R[facility] mg/dL [facility] Comment: Supplemental ranges: <140 mg/dL before meals <180 mg/dL all other times of the day Specimen Anatomical Collection Method Collection Time Receive d Time (Source) Location / / Volume Laterality Blood 12/11/2021 4:00 PM 2 4:00 EDT PM EDT Iker Cuevas MD POINT OF CARE TEST ORDERABLE S Performing Organization Address City/State/[place] [address] (ABNORMAL) POCT Glucose (12/11/2021 12:01 PM EDT) P athologist Signature POC Glucose 342 (H) 65 - 199 [place] mg/dL [facility] Comment: Supplemental ranges: <140 mg/dL before meals <180 mg/dL all other times of the day Specimen Anatomical Collection Method Collection Time Receive d Time (Source) Location / / Volume Laterality Blood 12/11/2021 12:01 12/11/2021 PM EDT 12:01 PM EDT Iker Cuevas MD POINT OF CARE TEST ORDERABLE S Performing Organization Address City/State/ZIP [place] [address] COVID-19 PCR (12/11/2021 10:13 AM EDT) [facility] Method Time Signature SARS-CoV-2 Not Detected Not Detected [place] RNA [facility] Comment: This [...] diagnosis of COVID-19 is performed using the [employer] RONNA S-CoV-2 Assay as authorized by the FDA Emergency Use Authorization (EUA). This EUA assay is intended for In-vitro Diagnostic (IVD) use with respiratory sp ecimens such as nasopharyngeal swabs collected from individuals during the ac grand traverse phase of infection. This assay is performed based on the instructions for use provided by [employer] and additional guidance provided by CDC and FDA. Testing is performed in the Clinical Genomics and Advanced Technolog y Laboratory within the Department of Pathology and Laboratory Medicine at [facility], certified under the Clinical Laboratory [...] is infected. As required or requested by [facility], positive specimens may be sent for [...] clinical management guidance information are available at [facility] CDC Coronavirus Disease 2019 (COVID-19) webpage under Information fo r Healthcare Professionals (https://www.cdc.gov/coronavirus/2019-nc ov/hcp/index.html) Additional information about this and ot her EUA tests can be found in provider and patient fact sheets at the following FDA website: https://www.fda.gov/medical-devices/nphbnafuqpa-nlcizxa-3167-hbweq-38-xdmebhhtt- xbq-rglheflxgqncht-rqlbkij-devices/gnmul-vsqurlqjyhd-mkfw SARS-Cov-2 RNA Source ALARM INSTALLER Swab [facility] Specimen (Source) Anatomical Collection Method Collection Time Re ceived Time Location / / Volume Laterality Nasopharyngeal Swab 12/11/2021 10:13 11/23 AM EDT 11:16 AM EDT Comment: Symptoms->Surveillance Resulting Agency Comment Spec In Lab Iker Cuevas MD MICROBIOLOGY - GENERAL ORDER [place] Performing Organization Address City/State/[place] [address] POCT Glucose (12/11/2021 7:34 AM EDT) P athologist Signature POC Glucose 198 65 - 199 [facility] mg/dL [facility] Comment: Supplemental ranges: <140 mg/dL before meals <180 mg/dL all other times of the day Specimen Anatomical Collection Method Collection Time Receive d Time (Source) Location / / Volume Laterality Blood 12/11/2021 7:34 AM 2 7:34 EDT AM EDT Iker Cuevas MD POINT OF CARE TEST ORDERABLE S Performing Organization Address City/State/[place] [address] (ABNORMAL) POCT Glucose (12/11/2021 5:07 AM EDT) P athologist Signature POC Glucose 208 (H) 65 - 199 [facility] Comment: Supplemental ranges: <140 mg/dL before meals <180 mg/dL all other times of the day Specimen Anatomical Collection Method Collection Time Receive d Time (Source) Location / / Volume Laterality Blood 12/11/2021 5:07 AM 2 5:07 EDT AM EDT Iker Cuevas MD POINT OF CARE TEST ORDERABLE S Performing Organization Address City/State/[place] [address] (ABNORMAL) Differential, Automated (12/11/2021 4:28 AM EDT) Patholo gist Method Time Signature Neutrophils % 79.6 % [facility] Neutr Abs (ANC) 7.01 (H) 1.70 - [facility] 6.10 [facility] x10(3)/[facility] L LABORATORY Lymphocytes % 9.1 % [facility] Lymphocytes Abs 0.8 (L) 0.9 - 3.2 [facility] x10(3)/[facility] LABORATORY Monocytes % 9.2 % [facility] Monocyte Abs 0.8 0.3 - 0.9 [facility] x10(3)/[facility] LABORATORY Eosinophils % 1.3 % [facility] Eosinophils Abs 0.1 0.0 - 0.4 [facility] x10(3)/[facility] LABORATORY Basophils % 0.5 % [facility] Basophils Abs 0.0 0.0 - 0.1 [facility] x10(3)/[facility] LABORATORY Immature Gran % 0.30 % [...] Melisa Gran Abs 0.03 0.00 - 0.04 x10(3)/[facility] MAR Y [facility] Specimen Anatomical Collection Method Collection Time Receive d Time (Source) Location / / Volume Laterality Blood 12/11/2021 4:28 AM 4:37 EDT AM EDT Resulting Agency Comment Spec In Lab Bijan Sun MD HEMATOLOGY ORDERABLES Performing Organization Address City/State/ZIP Code Phon e Number [place] [phone] (ABNORMAL) Hemogram (12/11/2021 4:28 AM EDT) Analysis Performed At Patho logist Time Signature WBC 8.8 4.0 - 9.5 [facility] x10(3)/[facility] LABORATORY RBC 4.15 (L) 4.58 - [place] 5.54 [facility] x10(6)/[facility] LABORATORY Hemoglobin 11.9 (L) 13.7 - [facility] 16.5 g/dL [facility] LABORATORY Hematocrit 36.9 (L) 40.5 - [facility] R[facility] 48.5 % [facility] MCV 88.9 82.9 - [facility] 93.1 [facility] LABORATORY MCH 28.7 27.5 - [place] 32.1 pg [facility]ORAT[facility] MCHC 32.2 32.0 - [facility] 35.7 g/dL [facility] Platelets 211 145 - 357 [facility] x10(3)/[facility] LABORATORY RDWSD 48.3 (H) 36.0 - [facility] R[facility] 45.0 [facility] LABORATORY RDWCV 14.8 (H) 11.4 - [facility] 13.8 % [facility] LABORATORY MPV 9.6 7.6 - 12.9 [facility] LABORATORY nRBC % Auto 0.0 % [facility] LABORATORY nRBC Abs Auto 0.000 0.000 - [facility] 0.000 [facility] x10(3)/[facility] LABORATORY Specimen Anatomical Collection Method Collection Time Receive d Time (Source) Location / / Volume Laterality Blood 12/11/2021 4:28 AM 2 4:37 EDT AM EDT Resulting Agency Comment Spec In Lab Bijan Sun MD HEMATOLOGY ORDERABLES Performing Organization Address City/[facility]/[place]IP [facility] [place] [address] (ABNORMAL) Prothrombin Time (12/11/2021 4:28 AM EDT) P athologist Signature PT 17.7 (H) 9.4 - 12.5 [facility] LABORATORY INR 1.6 [facility] [...] MD HEMATOLOGY ORDERABLES Performing Organization Address City/[facility]/[place] [address] (ABNORMAL) BMP w/fasting Glucose (12/11/2021 4:28 AM EDT) P athologist Signature Glucose 207 (H) 65 - 99 [facility] Fasting mg/dL [facility] LABORATORY Comment: ?Fasting* Glucose Interpretive C [...] MD CHEMISTRY ORDERABLES Performing Organization Address City/[facility]/[place] [address] Magnesium (12/11/2021 4:28 AM EDT) athologist Signature Magnesium 1.04 0.69 - 1.07 [facility] mmol/L [facility] LABORATORY Specimen Anatomical Collection Method Collection Time Receive d Time (Source) Location / / Volume Laterality Blood 12/11/2021 4:28 AM 2 4:37 EDT AM EDT Resulting Agency Comment Spec In Lab Iker Cuevas MD CHEMISTRY ORDERABLES Performing Organization Address City/[facility]/ZIP Code Phon e Number [address] POCT Glucose (12/11/2021 3:58 AM EDT) athologist Signature POC Glucose 189 65 - 199 [place] mg/dL [facility] LABORATORY Comment: Supplemental ranges: <140 mg/dL before meals <180 mg/dL all other times of the day Specimen Anatomical Collection Method Collection Time Receive d Time (Source) Location / / Volume Laterality Blood 12/11/2021 3:58 AM 2 3:58 EDT AM EDT Iker Cuevas MD POINT OF CARE TEST ORDERABLE S Performing Organization Address City/[facility]/[place] [address] (ABNORMAL) POCT Glucose (12/10/2021 11:45 PM EDT) athologist Signature POC Glucose 205 (H) 65 - 199 [place] mg/dL [facility] LABORATORY Comment: Supplemental ranges: <140 mg/dL before meals <180 mg/dL all other times of the day Specimen Anatomical Collection Method Collection Time Receive d Time (Source) Location / / Volume Laterality Blood 12/10/2021 11:45 12/10/2021 PM EDT 11:45 PM EDT Iker Cuevas MD POINT OF CARE TEST ORDERABLE S Performing Organization Address City/[facility]/[place] [address] (ABNORMAL) POCT Glucose (12/10/2021 7:54 PM EDT) athologist Signature POC Glucose 225 (H) 65 - 199 [facility] Comment: Supplemental ranges: <140 mg/dL before meals <180 mg/dL all other times of the day Specimen Anatomical Collection Method Collection Time Receive d Time (Source) Location / / Volume Laterality Blood 12/10/2021 7:54 PM 2 7:54 EDT PM EDT Iker Cuevas MD POINT OF CARE TEST ORDERABLE S Performing Organization Address City/[facility]/[place] [address] Potassium (12/10/2021 7:46 PM EDT) athologist [facility] Potassium 4.2 3.5 - 5.0 [facility] mmol/L [facility] Comment: Please note: ??Patients with [...] MD CHEMISTRY ORDERABLES Performing Organization Address City/[facility]/[place]IP [facility] [place] [address] (ABNORMAL) Basic Metabolic Panel (non-fasting) (12/10/2021 6:12 PM EDT) athologist Signature Glucose Lvl 246 (H) 65 - 199 [facility] mg/dL [facility] Comment: Diabetes: >=200 mg/dL plus symp toms BUN 50 (H) 10 - 20 mg/dL [facility] LABORATORY Creatinine 1.39 0.80 - 1.50 mg/dL [facility] LABORATORY Sodium 138 135 - 145 mmol/L [facility] LABORATORY Potassium Not Perf 3.5 - 5.0 [facility] LABORATORY Comment: Unable to quantitate [...] Address City/State/ZIP Code Phon e Number [address] POCT Glucose (12/10/2021 4:59 PM EDT) P athologist Signature POC Glucose 158 65 - 199 [facility] mg/dL [facility] Comment: Supplemental ranges: <140 mg/dL before meals <180 mg/dL all other times of the day Specimen Anatomical Collection Method Collection Time Receive d Time (Source) Location / / Volume Laterality Blood 12/10/2021 4:59 PM 2 4:59 EDT PM EDT Iker Cuevas MD POINT OF CARE TEST ORDERABLE S Performing Organization Address City/State/[place] [address] (ABNORMAL) POCT Glucose (12/10/2021 12:43 PM EDT) P athologist Signature POC Glucose 241 (H) 65 - 199 [facility] mg/dL [facility] Comment: Supplemental ranges: <140 mg/dL before meals <180 mg/dL all other times of the day Specimen Anatomical Collection Method Collection Time Receive d Time (Source) Location / / Volume Laterality Blood 12/10/2021 12:43 12/10/2021 PM EDT 12:43 PM EDT Iker Cuevas MD POINT OF CARE TEST ORDERABLE S Performing Organization Address City/State/[place] [address] EKG 12 Lead (12/10/2021 11:17 AM EDT) Component Value Ref Range Test Analysis Performed Pathologis t Method Time At Signature Ventricular rate 62 BPM MUSE SYSTEM Atrial Rate 62 BPM MUSE SYSTEM P-R Interval 142 ms MUSE SYSTEM QRS Duration 100 ms MUSE SYSTEM Q-T Interval 434 ms MUSE SYSTEM QTC Calculated 440 ms MUSE SYSTEM (Bezet) Calculated P [place] 34 degrees MUSE SYSTEM Calculated R [place] -39 degrees MUSE SYSTEM Calculated T [place] 92 degrees MUSE SYSTEM INTERPRETATION Normal sinus rhythm MUSE SYSTEM Left axis deviation Minimal voltage criteria for LVH, may be normal variant ( [place] product ) Cannot rule out Inferior infarct [...] Laterality Volume Narrative 12/10/2021 12:04 PM EDT ?[facility] ? Cardiac Cathete rization/Intervention Report ? Patient Name: Don FatimaMadiha ? Procedure Date: 12/10/2021 ? A #: [id number] ? Primary Physician: Nobles, Vitaliy P ? Case #: [id number] ? File Name: [id number] ? Catheterization Order Number: [id number] ? [facility] ? Final Report [place], [place] ? Patient Name: ? Don E. Stewa rt ? ID#: ?[id number] ? : ?1945 ? Procedure Date: ? [...] procedure was Urgent. 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 ??Imaging [...] ?3.75 guiding catheter and a 3.5 Fr [place] 20 Mhz using Manual ?pullback. ??Imaging [...] continue unless contraindicated. ?Continue clopidogrel 75 mg gomze y for 12 months then stop. ?Continue [...] may require ?modification of this regimen. [facility] for ?questions. ?The 1 year [...] Procedure Note Vitaliy Nobles MD - 01/14/2022 [facility] Cardiac Catheterization/Intervention Re port Patient Name: Don Fatima Procedure Date: 12/10/2021 A #: [id number] Primary Physician: Vitaliy Nobles Case #: [id number] File Name: [id number] Catheterization Order Number: [id number] [facility] Director [employer] [facility] Final Report [place], [place] Patient Name: Don Fatima ID#: [...] e was Urgent. 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 Imaging [...] and a 3.5 Fr [place] 20 Mhz using Manual pullback. Imaging [...] modification of this regimen. Consult D [facility] Interventional Cardiology for questions. The 1 year [...] 262 (H) 65 - 199 [facility] mg/dL [facility] Comment: Supplemental ranges: <140 mg/dL before meals <180 mg/dL all other times of the day Specimen Anatomical Collection Method Collection Time Receive d Time (Source) Location / / Volume Laterality Blood 12/10/2021 10:30 12/10/2021 AM EDT 10:30 AM EDT Iker Cuevas MD POINT OF CARE TEST ORDERABLE S Performing Organization Address City/State/[place] [address] (ABNORMAL) POCT Glucose (12/10/2021 9:48 AM EDT) athologist Signature POC Glucose 279 (H) 65 - 199 [place] mg/dL [facility] LAB[facility] Comment: Supplemental ranges: <140 mg/dL before meals <180 mg/dL all other times of the day Specimen Anatomical Collection Method Collection Time Receive d Time (Source) Location / / Volume Laterality Blood 12/10/2021 9:48 AM 2 9:48 EDT AM EDT Iker Cuevas MD POINT OF CARE TEST ORDERABLE S Performing Organization Address City/[facility]/[place] [address] (ABNORMAL) POCT Glucose (12/10/2021 9:07 AM EDT) P athologist Signature POC Glucose 268 (H) 65 - 199 [place] mg/dL [facility] Comment: Supplemental ranges: <140 mg/dL before meals <180 mg/dL all other times of the day Specimen Anatomical Collection Method Collection Time Receive d Time (Source) Location / / Volume Laterality Blood 12/10/2021 9:07 AM 2 9:07 EDT AM EDT Iker Cuevas MD POINT OF CARE TEST ORDERABLE S Performing Organization Address City/State/[place] [address] (ABNORMAL) Point of Care Blood Gas Historical (12/10/2021 9:04 AM EDT) [facility] Method Time Signature POC pH 7.40 7.35 - [place] 7.45 [facility] LABORATORY POC PCO2 40 35 - 45 [facility] LABORATORY POC PO2 63 (L) 85 - 104 [facility] LABORATORY POC Base Excess 0.0 -3.0 - 3.0 [facility] K mmol/L [facility] LABORAT[facility] POC HCO3 24.8 20.0 - [facility] 26.0 [facility] POC Sodium 143 135 - 145 [facility] mmol/L [facility]OR[facility] POC Potassium 3.7 3.5 - 5.0 [facility] mmol/L [facility] POC Ionized Ca 1.07 (L) 1.15 - [facility] 1.33 [facility] POC Hematocrit 30.0 (L) 40.0 - [facility] 51.0 % [facility] POC Calc Hgb 10.2 (L) 13.7 - [facility] 17.5 g/dL [facility] Comment: The calculation of hemoglobin f rom hematocrit assumes a normal MCHC. POC Bgas Loc CC LAB [facility] LABORATORY Specimen Anatomical Collection Method Collection Time Receive d Time (Source) Location / / Volume Laterality Blood 12/10/2021 9:04 AM 2 EDT 12:00 PM EDT Ifeanyi Truong MD CHEMISTRY ORDERABLES Performing Organization Address City/State/[place] [address] (ABNORMAL) POCT Glucose (12/10/2021 7:19 AM EDT) P athologist Signature POC Glucose 274 (H) 65 - 199 [facility] mg/dL [facility] Comment: Supplemental ranges: <140 mg/dL before meals <180 mg/dL all other times of the day Specimen Anatomical Collection Method Collection Time Receive d Time (Source) Location / / Volume Laterality Blood 12/10/2021 7:19 AM 2 7:19 EDT AM EDT Iker Cuevas MD POINT OF CARE TEST ORDERABLE S Performing Organization Address City/State/[place] [address] Heparin (unfractionated) Level (12/10/2021 [...] City/State/ZIP Code Phon e Number [place] [phone] (ABNORMAL) Differential, Automated (12/10/2021 4:25 AM EDT) Patholo gist Method Time Signature Neutrophils % 79.8 % [facility] LABORATORY Neutr Abs (ANC) 7.47 (H) 1.70 - [facility] 6.10 [facility] x10(3)/[facility] L LABORATORY Lymphocytes % 10.6 % [facility] LABORATORY Lymphocytes Abs 1.0 0.9 - 3.2 [facility] x10(3)/[facility] LABORATORY Monocytes % 8.4 % [facility] LABORATORY Monocyte Abs 0.8 0.3 - 0.9 [facility] x10(3)/[facility] LABORATORY Eosinophils % 0.6 % [facility] LABORATORY Eosinophils Abs 0.1 0.0 - 0.4 [facility] x10(3)/[facility] LABORATORY Basophils % 0.2 % [facility] LABORATORY Basophils Abs 0.0 0.0 - 0.1 [facility] x10(3)/[facility] LABORATORY Immature Gran % 0.40 % [...] Melisa Gran Abs 0.04 0.00 - 0.04 x10(3)/[facility] MAR Y [facility] LABORATORY Specimen Anatomical Collection Method Collection Time Receive d Time (Source) Location / / Volume Laterality Blood 12/10/2021 4:25 AM 4:34 EDT AM EDT Resulting Agency Comment Spec In Lab Morgan BROWN HEMATOLOGY ORDERABLES Performing Organization Address City/State/[place] [address] (ABNORMAL) Hemogram (12/10/2021 4:25 AM EDT) Analysis Performed At Patho logist Time Signature WBC 9.4 4.0 - 9.5 [facility] x10(3)/[facility] LABORATORY RBC 3.81 (L) 4.58 - [facility] 5.54 [facility] x10(6)/[facility] LABORATORY Hemoglobin 11.1 (L) 13.7 - [facility] 16.5 g/dL [facility] LABORATORY Hematocrit 34.0 (L) 40.5 - [facility] 48.5 % [facility] MCV 89.2 82.9 - [facility] 93.1 [facility] LABORATORY MCH 29.1 27.5 - [facility] 32.1 pg [facility] MCHC 32.6 32.0 - [facility] 35.7 g/dL [facility] Platelets 183 145 - 357 [facility] x10(3)/[facility] LABORATORY RDWSD 49.9 (H) 36.0 - [facility] 45.0 [facility] LABORATORY RDWCV 15.2 (H) 11.4 - [facility] 13.8 % [facility] LABORATORY MPV 9.8 7.6 - 12.9 [facility] LABORATORY nRBC % Auto 0.0 % [facility] LABORATORY nRBC Abs Auto 0.000 0.000 - [place] 0.000 [facility] x10(3)/[facility] LABORATORY Specimen Anatomical Collection Method Collection Time Receive d Time (Source) Location / / Volume Laterality Blood 12/10/2021 4:25 AM 2 4:34 EDT AM EDT Resulting Agency Comment Spec In Lab Morgan BROWN HEMATOLOGY ORDERABLES Performing Organization Address City/[facility]/ZIP Code Phon e Number [address] (ABNORMAL) Prothrombin Time (12/10/2021 4:25 AM EDT) P athologist Signature PT 20.0 (H) 9.4 - 12.5 [facility] LABORATORY INR 1.7 [facility] [...] MD HEMATOLOGY ORDERABLES Performing Organization Address City/[facility]/[place] [address] (ABNORMAL) BMP w/fasting Glucose (12/10/2021 4:25 AM EDT) P athologist Signature Glucose 210 (H) 65 - 99 [facility] Fasting mg/dL [facility] Comment: ?Fasting* Glucose Interpretive C [...] Address City/State/[place] [address] Magnesium (12/10/2021 4:25 AM EDT) athologist Signature Magnesium 0.95 0.69 - 1.07 [place] mmol/L [facility] LABORATORY Specimen Anatomical Collection Method Collection Time Receive d Time (Source) Location / / Volume Laterality Blood 12/10/2021 4:25 AM 2 4:34 EDT AM EDT Resulting Agency Comment Spec In Lab Iker Cuevas MD CHEMISTRY ORDERABLES Performing Organization Address City/[facility]/Z[place] [address] POCT Glucose (12/10/2021 1:58 AM EDT) athologist Signature POC Glucose 164 65 - 199 [place] [place] mg/dL [facility] Comment: Supplemental ranges: <140 mg/dL before meals <180 mg/dL all other times of the day Specimen Anatomical Collection Method Collection Time Receive d Time (Source) Location / / Volume Laterality Blood 12/10/2021 1:58 AM 2 1:58 EDT AM EDT Iker Cuevas MD POINT OF CARE TEST ORDERABLE S Performing Organization Address City/[facility]/ZIP Code Phon e Number [address] (ABNORMAL) POCT Glucose (12/09/2021 9:02 PM EDT) athologist Signature POC Glucose 313 (H) 65 - 199 [place] mg/dL [facility] Comment: Supplemental ranges: <140 mg/dL before meals <180 mg/dL all other times of the day Specimen Anatomical Collection Method Collection Time Receive d Time (Source) Location / / Volume Laterality Blood 12/09/2021 9:02 PM 2 9:02 EDT PM EDT Iker Cuevas MD POINT OF CARE TEST ORDERABLE S Performing Organization Address City/[facility]/[place] [address] Heparin (unfractionated) Level (12/09/2021 [...] Organization Address City/State/[place] [address] (ABNORMAL) Basic Metabolic Panel (non-fasting) (12/09/2021 7:30 PM EDT) athologist Signature Glucose Lvl 372 (H) 65 - 199 [facility] mg/dL [facility] Comment: Diabetes: >=200 [...] Organization Address City/State/[place] [address] (ABNORMAL) POCT Glucose (12/09/2021 6:34 PM EDT) athologist Signature POC Glucose 408 (H) 65 - 199 [place] mg/dL [facility] Comment: Supplemental ranges: <140 mg/dL before meals <180 mg/dL all other times of the day Specimen Anatomical Collection Method Collection Time Receive d Time (Source) Location / / Volume Laterality Blood 12/09/2021 6:34 PM 2 6:34 EDT PM EDT Iker Cuevas MD POINT OF CARE TEST ORDERABLE S Performing Organization Address City/State/[place] [address] (ABNORMAL) POCT Glucose (12/09/2021 6:32 PM EDT) athologist Signature POC Glucose 356 (H) 65 - 199 [facility] mg/dL [facility] Comment: Supplemental ranges: <140 mg/dL before meals <180 mg/dL all other times of the day Specimen Anatomical Collection Method Collection Time Receive d Time (Source) Location / / Volume Laterality Blood 12/09/2021 6:32 PM 2 6:32 EDT PM EDT Iker Cuevas MD POINT OF CARE TEST ORDERABLE S Performing Organization Address City/[facility]/[place] [address] (ABNORMAL) POCT Glucose (12/09/2021 4:19 PM EDT) athologist Signature POC Glucose 347 (H) 65 - 199 [facility] mg/dL [facility] Comment: Supplemental ranges: <140 mg/dL before meals <180 mg/dL all other times of the day Specimen Anatomical Collection Method Collection Time Receive d Time (Source) Location / / Volume Laterality Blood 12/09/2021 4:19 PM 2 4:19 EDT PM EDT Iker Cuevas MD POINT OF CARE TEST ORDERABLE S Performing Organization Address City/State/[place] [address] Heparin (unfractionated) Level (12/09/2021 [...] Address City/State/[place] [address] (ABNORMAL) POCT Glucose (12/09/2021 12:02 PM EDT) athologist Signature POC Glucose 235 (H) 65 - 199 [facility] mg/dL [facility] Comment: Supplemental ranges: <140 mg/dL before meals <180 mg/dL all other times of the day Specimen Anatomical Collection Method Collection Time Receive d Time (Source) Location / / Volume Laterality Blood 12/09/2021 12:02 12/09/2021 PM EDT 12:02 PM EDT Iker Cuevas MD POINT OF CARE TEST ORDERABLE S Performing Organization Address City/State/[place] [address] (ABNORMAL) POCT Glucose (12/09/2021 9:44 AM EDT) athologist Signature POC Glucose 214 (H) 65 - 199 [place] mg/dL [facility] Comment: Supplemental ranges: <140 mg/dL before meals <180 mg/dL all other times of the day Specimen Anatomical Collection Method Collection Time Receive d Time (Source) Location / / Volume Laterality Blood 12/09/2021 9:44 AM 2 9:44 EDT AM EDT Iker Cuevas MD POINT OF CARE TEST ORDERABLE S Performing Organization Address City/[facility]/[place] [address] EKG 12 Lead (12/09/2021 7:57 AM EDT) Component Value Ref Range Test Analysis Performed Pathologis t Method Time At Signature Ventricular rate 101 BPM MUSE SYSTEM Atrial Rate 101 BPM MUSE SYSTEM P-R Interval 150 ms MUSE SYSTEM QRS Duration 112 ms MUSE SYSTEM Q-T Interval 364 ms MUSE SYSTEM QTC Calculated 471 ms MUSE SYSTEM (Bezet) Calculated P [place] 59 degrees MUSE SYSTEM Calculated R [place] -42 degrees MUSE SYSTEM Calculated T [place] 102 degrees MUSE SYSTEM INTERPRETATION Sinus tachycardia Occasional Premature ventricular com plexes MUSE SYSTEM Left axis deviation 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) Abnormal ECG When compared with ECG of 08-DEC-2021 16:40, Premature ventricular complexes are now Present Confirmed by MD Fernandez Danette ([id number]) on 12/10/2021 4:55:06 PM Specimen Anatomical Collection Method Collection Time Receive d Time (Source) Location / / Volume Laterality 12/09/2021 7:57 AM 2 4:55 EDT PM EDT Iker Cuevas MD ECG ORDERABLES Performing Organization Address City/State/ZIP Code Phon e Number MUSE SYSTEM (ABNORMAL) POCT Glucose (12/09/2021 7:28 AM EDT) P athologist Signature POC Glucose 263 (H) 65 - 199 [facility] mg/dL [facility] Comment: Supplemental ranges: <140 mg/dL before meals <180 mg/dL all other times of the day Specimen Anatomical Collection Method Collection Time Receive d Time (Source) Location / / Volume Laterality Blood 12/09/2021 7:28 AM 2 7:28 EDT AM EDT Iker Cuevas MD POINT OF CARE TEST ORDERABLE S Performing Organization Address City/State/ZIP Code Phon e Number [place] [phone] LAB[address]ORY Drive (ABNORMAL) Hemoglobin A1c (12/09/2021 [...] Mellitus, Diabetes Care 2013; 36: Suppl. 1, [id number] Est Avg Gluc See note mg/dL [place] [...] into estimated average glucose values. ??Diabetes Care 2008:31(8):0249-0764. Specimen Anatomical Collection Method Collection Time Receive d Time (Source) Location / / Volume Laterality Blood Venous Draw / 12/09/2021 6:18 AM 12/10/19 22 Unknown EDT 12:24 PM EDT Resulting Agency Comment Spec In Lab Migdlaia BROWN CHEMISTRY ORDERABLES Performing Organization Address [facility] [place] [address] (ABNORMAL) Prothrombin Time (12/09/2021 6:18 AM EDT) athologist Signature PT 26.6 (H) 9.4 - 12.5 [facility] LABORATORY INR 2.3 [facility] Migdalia BROWN HEMATOLOGY ORDERABLES Performing Organization Address [facility] [place] [address] Heparin (unfractionated) Level (12/09/2021 [...] Organization Address City/State/[place] [address] (ABNORMAL) Differential, Automated (12/09/2021 6:18 AM EDT) [facility] Method Time Signature Neutrophils % 91.5 % [facility] LABORATORY Neutr Abs (ANC) 15.78 (H) 1.70 - [facility] 6.10 [facility] x10(3)/[facility] LABORATORY Lymphocytes % 2.9 % [facility] LABORATORY Lymphocytes Abs 0.5 (L) 0.9 - 3.2 [facility] x10(3)/[facility] LABORATORY Monocytes % 4.9 % [facility] LABORATORY Monocyte Abs 0.8 0.3 - 0.9 [facility] x10(3)/[facility] LABORATORY Eosinophils % 0.0 % [facility] LABORATORY Eosinophils Abs 0.0 0.0 - 0.4 [facility] x10(3)/[facility] LABORATORY Basophils % 0.2 % [facility] LABORATORY Basophils Abs 0.0 0.0 - 0.1 [facility] x10(3)/[facility] LABORATORY Immature Gran % 0.50 % [...] 0.09 (H) 0.00 - 0.04 x10(3)/[facility] LABORATORY Specimen Anatomical Collection Method Collection Time Receive d Time (Source) Location / / Volume Laterality Blood 12/09/2021 6:18 AM 6:33 EDT AM EDT Resulting Agency Comment Spec In Lab Morgan BROWN HEMATOLOGY ORDERABLES Performing Organization Address City/State/[place] [address] (ABNORMAL) Hemogram (12/09/2021 6:18 AM EDT) Analysis Performed At Patho logist Time Signature WBC 17.2 (H) 4.0 - 9.5 [facility] x10(3)/[facility] LABORATORY RBC 4.32 (L) 4.58 - [facility] 5.54 [facility] x10(6)/[facility] LABORATORY Hemoglobin 12.6 (L) 13.7 - [facility] 16.[facility] g/dL [facility] LABORATORY Hematocrit 38.9 (L) 40.5 - [facility] 48.5 % [facility] LABORATORY MCV 90.0 82.9 - [facility] 93.1 [facility] LABORATORY MCH 29.2 27.5 - [facility] 32.1 pg [facility] LABORATORY MCHC 32.4 32.0 - [facility] 35.7 g/dL [facility] LABORATORY Platelets 193 145 - 357 [facility] x10(3)/[facility] LABORATORY RDWSD 50.4 (H) 36.0 - [facility] 45.0 [facility] LABORATORY RDWCV 15.2 (H) 11.4 - [facility] 13.8 % [facility] LABORATORY MPV 9.5 7.6 - 12.9 [facility] LABORATORY nRBC % Auto 0.0 % [facility] LABORATORY nRBC Abs Auto 0.000 0.000 - [facility] 0.000 [facility] x10(3)/[facility] LABORATORY Specimen Anatomical Collection Method Collection Time Receive d Time (Source) Location / / Volume Laterality Blood 12/09/2021 6:18 AM 6:33 EDT AM EDT Resulting Agency Comment Spec In Lab Morgan BROWN HEMATOLOGY ORDERABLES Performing Organization Address City/State/[place] [address] Lipid Panel (Reflex Direct LDL) (12/09/2021 6:18 AM EDT) athologist Signature Chol, Total 105 mg/dL [facility] LABORATORY Comment: Lower Risk: <200 mg/dL Average Risk: 200-239 mg/dL Higher Risk: >wi=808 mg/dL Triglycerides 133 mg/dL [facility] LABORATORY Comment: Average Risk/Lower Risk: <150 mg/dL Borderline High Risk: 150-199 mg/dL High Risk: 200-499 mg/dL Very High Risk: >bm=112 mg/dL HDL 42 mg/dL [facility] LABORATORY Comment: Males: ?? Higher Risk: <40 mg/dL Females: ?? Higher Risk: <50 mg/dL LDL Cholesterol 36 mg/dL [facility] LABORATORY Comment: Lowest Risk: <100 mg/dL Lower Risk: 100-129 mg/dL Borderline High Risk: 130-159 mg/dL High Risk: 160-189 mg/dL Very High Risk: >ok=507 mg/dL Chol/HDL Ratio 2.5 ratio [facility] LABORATORY Lipid Interpretation See Note [facility] LABORATORY Comment: Lipid management should be guided by a p atient? s ASCVD risk, goals and preferences. ACC/AHA Guidelines recommend high intens ity statin if clinical ASCVD or LDL greater than or equal to 190 mg/dL. http://tinyurl.com/TYH-OBZ-Fttwamesn Adults aged 40-75 with LDL 70-189 mg/dL should have their 10 year ASCVD risk estimated with the ACC/AHA ASCVD risk es timator http://tools.acc.org/SVIOO-Fgyu-Ywznisll r/ Statin should be discussed if risk [...] MD CHEMISTRY ORDERABLES Performing Organization Address City/[facility]/ZIP Code Phon e Number [address] TSH (12/09/2021 6:18 AM EDT) P athologist Signature TSH 1.60 0.27 - 4.20 [facility] mcIU/mL [facility] LABORATORY Comment: Reference Interval (mcIU/mL): Females: ??First Trimester: 0.23-3.88 ??Second Trimester: 0.22-3.90 ??Third Trimester: 0.44-4.66 Specimen Anatomical Collection Method Collection Time Receive d Time (Source) Location / / Volume Laterality Blood 12/09/2021 6:18 AM 2 6:33 EDT AM EDT Resulting Agency Comment Spec In Lab Iker Cuevas MD CHEMISTRY ORDERABLES Performing Organization Address City/[facility]/[place] [address] Hepatic Function Panel (12/09/2021 6:18 AM EDT) P athologist Signature Total Protein 7.3 6.1 - 8.0 [facility] g/dL [facility] LABORATORY Albumin 4.2 3.2 - 5.2 [facility] g/dL [facility] AST 25 0 - 39 [facility] unit/L [facility] ALT 15 0 - 55 [facility] unit/L [facility] Alk Phos 75 40 - 130 [facility] unit/L [facility] Total 1.1 0.2 - 1.3 [facility] Bilirubin mg/dL [facility] LABORAT[facility] Bili, Direct 0.2 0.0 - 0.3 [facility] mg/dL [facility] LABORATORY Specimen Anatomical Collection Method Collection Time Receive d Time (Source) Location / / Volume Laterality Blood 12/09/2021 6:18 AM 6:33 EDT AM EDT Resulting Agency Comment Spec In Lab Iker Cuevas MD CHEMISTRY ORDERABLES Performing Organization Address City/State/[place] [address] (ABNORMAL) BMP w/fasting Glucose (12/09/2021 6:18 AM EDT) athologist Signature Glucose 235 (H) 65 - 99 [facility] Fasting mg/dL [facility] LABOR[facility]ORY Comment: ?Fasting* Glucose Interpretive C [...] MD CHEMISTRY ORDERABLES Performing Organization Address City/[facility]/ZIP Code Phon e Number [address] Magnesium (12/09/2021 6:18 AM EDT) P athologist Signature Magnesium 0.81 0.69 - 1.07 [facility] mmol/L [facility] LABORATORY Specimen Anatomical Collection Method Collection Time Receive d Time (Source) Location / / Volume Laterality Blood 12/09/2021 6:18 AM 2 6:33 EDT AM EDT Resulting Agency Comment Spec In Lab Iker Cuevas MD CHEMISTRY ORDERABLES Performing Organization Address City/[facility]/ZIP Code Phon e Number [address] (ABNORMAL) Troponin (12/09/2021 6:18 AM EDT) P athologist Signature Troponin-T 1.13 (H) 0.00 - [facility] 0.00 ng/mL [facility] LABORATORY Comment: The 99th percentile for [...] sample may be indicated. Reference: Third [place] Definition of Myocardial Infarction. Journal of the [place] [employer] 2012;60:1581-98 Specimen Anatomical Collection Method Collection Time Receive d Time (Source) Location / / Volume Laterality Blood 12/09/2021 6:18 AM 6:33 EDT AM EDT Resulting Agency Comment Spec In Lab Iker Cuevas MD CHEMISTRY ORDERABLES Performing Organization Address City/State/ZIP Code [place] [address] XR Chest One View [...] who have questions please contact the health restorative care technician that requested your imaging first. ? Electronically signed by: Yoselin White, [facility] ([phone]), at 12/09/2021 5:35 AM Narrative 12/09/2021 5:35 [...] ho have questions please contact the health restorative care technician that requested your imaging first. Electronically signed by: Yoselin White, [facility] ([phone]), at 12/09/2021 5:35 AM Amber Sanches MD IMG DX ORDERABLES (ABNORMAL) BLOOD GAS 2 ARTERIAL (12/09/2021 5:14 AM EDT) Analysis Performed At Patho logist Time Signature pH Art 7.43 7.35 - [facility] 7.45 [facility] LABORATORY pCO2 Art 36 35 - 45 [facility] mmHg [facility] pO2 Art 67 (L) 85 - 104 [facility] LABORATORY HCO3 Art 23.4 20.0 - [facility] 26.0 [facility] mmol/[facility] LABORATORY BE Art -0.9 -3.0 - 3.0 [facility] mmol/L [facility]OR[facility] Hgb Blood Gas 13.2 (L) 13.7 - [facility] 16.5 g/dL [facility] O2HB Art 91.3 (L) 94.0 - [facility] 97.0 % [facility] LABORATORY COHB Art 0.4 % [facility] LABORATORY Comment: Nonsmokers: 0.5-1.5% COHB Smokers: Variable, but usually less than 10% Toxic: 20-30% COHB Lethal: Greater than 60% COHB METHB Art 0.4 <=1.5 % [facility] LABORATORY Na [...] [facility] FIO2 Art 35 % [facility] LABOR[facility] Flow Art 8.0 LPM [facility] LABORAT[facility] PF Ratio Art 191 [facility] LABORATORY Specimen Anatomical Collection Method Collection Time Receive d Time (Source) Location / / Volume Laterality Blood 12/09/2021 5:14 AM 2 5:14 EDT AM EDT Iker Cuevas MD CHEMISTRY ORDERABLES Performing Organization Address City/[facility] [place] [address] POCT Glucose (12/09/2021 4:46 AM EDT) P athologist Signature POC Glucose 198 65 - 199 [facility] mg/dL [facility] Comment: Supplemental ranges: <140 mg/dL before meals <180 mg/dL all other times of the day Specimen Anatomical Collection Method Collection Time Receive d Time (Source) Location / / Volume Laterality Blood 12/09/2021 4:46 AM 2 4:46 EDT AM EDT Iker Cuevas MD POINT OF CARE TEST ORDERABLE S Performing Organization Address City/[facility]/[place] [address] (ABNORMAL) POCT Glucose (12/09/2021 3:01 AM EDT) P athologist Signature POC Glucose 225 (H) 65 - 199 [facility] mg/dL [facility] Comment: Supplemental ranges: <140 mg/dL before meals <180 mg/dL all other times of the day Specimen Anatomical Collection Method Collection Time Receive d Time (Source) Location / / Volume Laterality Blood 12/09/2021 3:01 AM 2 3:01 EDT AM EDT Iker Cuevas MD POINT OF CARE TEST ORDERABLE S Performing Organization Address City/State/[place] [address] (ABNORMAL) POCT Glucose (12/08/2021 10:55 PM EDT) athologist Signature POC Glucose 327 (H) 65 - 199 [facility] mg/dL [facility] Comment: Supplemental ranges: <140 mg/dL before meals <180 mg/dL all other times of the day Specimen Anatomical Collection Method Collection Time Receive d Time (Source) Location / / Volume Laterality Blood 12/08/2021 10:55 12/08/2021 PM EDT 10:55 PM EDT Iker Cuevas MD POINT OF CARE TEST ORDERABLE S Performing Organization Address City/[facility]/[place] [address] Heparin (unfractionated) Level (12/08/2021 [...] Address City/State/[place] [address] (ABNORMAL) Troponin (12/08/2021 10:03 PM EDT) athologist Signature Troponin-T 0.92 (H) 0.00 - [facility] 0.00 ng/mL [facility] Comment: The 99th percentile for [...] sample may be indicated. Reference: Third [place] Definition of Myocardial Infarction. Journal of the [place] [employer] 2012;60:1581-98 Specimen Anatomical Collection Method Collection Time Receive d Time (Source) Location / / Volume Laterality Blood 12/08/2021 10:03 12/08/2021 PM EDT 10:31 PM EDT Resulting Agency Comment Spec In Lab Iker Cuevas MD CHEMISTRY ORDERABLES Performing Organization Address City/State/ZIP Code Phon e Number [facility] [place] [address] (ABNORMAL) POCT Glucose (12/08/2021 8:22 PM EDT) athologist Signature POC Glucose 429 (H) 65 - 199 [facility] mg/dL [facility]OR[facility] Comment: Supplemental ranges: <140 mg/dL before meals <180 mg/dL all other times of the day Specimen Anatomical Collection Method Collection Time Receive d Time (Source) Location / / Volume Laterality Blood 12/08/2021 8:22 PM 2 8:22 EDT PM EDT Iker Cuevas MD POINT OF CARE TEST ORDERABLE S Performing Organization Address City/[facility]/ZIP Code Phon e Number [address] (ABNORMAL) POCT Glucose (12/08/2021 7:06 PM EDT) athologist Signature POC Glucose 442 (H) 65 - 199 [facility] mg/dL [facility] Comment: Supplemental ranges: <140 mg/dL before meals <180 mg/dL all other times of the day Specimen Anatomical Collection Method Collection Time Receive d Time (Source) Location / / Volume Laterality Blood 12/08/2021 7:06 PM 2 7:06 EDT PM EDT Iker Cuevas MD POINT OF CARE TEST ORDERABLE S Performing Organization Address City/[facility]/[place] [address] Magnesium (12/08/2021 6:02 PM EDT) athologist Signature Magnesium 0.86 0.69 - 1.07 [facility] mmol/L [facility] LABOR[facility]ORY Specimen Anatomical Collection Method Collection Time Receive d Time (Source) Location / / Volume Laterality Blood 12/08/2021 6:02 PM 2 6:36 EDT PM EDT Resulting Agency Comment Spec In Lab Iker Cuevas MD CHEMISTRY ORDERABLES Performing Organization Address City/[facility]/[place] [address] (ABNORMAL) Basic Metabolic Panel (non-fasting) (12/08/2021 6:02 PM EDT) athologist Signature Glucose Lvl 392 (H) 65 - 199 [facility] mg/dL [facility] Comment: Diabetes: >=200 [...] Organization Address City/State/[place] [address] (ABNORMAL) Differential, Automated (12/08/2021 6:02 PM EDT) [facility] gist Method Time Signature Neutrophils % 89.5 % [facility] LABORATORY Neutr Abs (ANC) 13.97 (H) 1.70 - [facility] 6.10 [facility] x10(3)/[facility] L LABORATORY Lymphocytes % 3.7 % [facility] LABORATORY Lymphocytes Abs 0.6 (L) 0.9 - 3.2 [facility] x10(3)/[facility] LABORATORY Monocytes % 6.1 % [facility] LABORATORY Monocyte Abs 1.0 (H) 0.3 - 0.9 [facility] x10(3)/[facility] LABORATORY Eosinophils % 0.0 % [facility] LABORATORY Eosinophils Abs 0.0 0.0 - 0.4 [facility] x10(3)/[facility] LABORATORY Basophils % 0.2 % [facility] LABORATORY Basophils Abs 0.0 0.0 - 0.1 [facility] x10(3)/[facility] LABORATORY Immature Gran % 0.50 % [...] 0.08 (H) 0.00 - 0.04 x10(3)/[facility] LABORATORY Specimen Anatomical Collection Method Collection Time Receive d Time (Source) Location / / Volume Laterality Blood 12/08/2021 6:02 PM 6:36 EDT PM EDT Resulting Agency Comment Spec In Lab Morgan BROWN HEMATOLOGY ORDERABLES Performing Organization Address City/State/[place] [address] (ABNORMAL) Hemogram (12/08/2021 6:02 PM EDT) Analysis Performed At Patho logist Time Signature WBC 15.6 (H) 4.0 - 9.5 [facility] x10(3)/[facility] LABORATORY RBC 4.05 (L) 4.58 - [facility] 5.54 [facility] x10(6)/[facility] LABORATORY Hemoglobin 11.8 (L) 13.7 - [facility] 16.5 g/dL [facility]OR[facility] Hematocrit 35.8 (L) 40.5 - [facility] 48.5 % [facility] LABORATORY MCV 88.4 82.9 - [facility] 93.1 [facility] LABORATORY MCH 29.1 27.5 - [facility] 32.1 pg [facility] LABORATORY MCHC 33.0 32.0 - [facility] 35.7 g/dL [facility] LABOR[facility] Platelets 178 145 - 357 [facility] x10(3)/[facility] LABORATORY RDWSD 49.3 (H) 36.0 - [facility] 45.0 [facility] LABORATORY RDWCV 15.1 (H) 11.4 - [facility] 13.8 % [facility] LABORATORY MPV 10.4 7.6 - 12.9 [facility] fL [facility] LAB[facility]AT[facility] nRBC % Auto 0.0 % [facility] LABORATORY nRBC Abs Auto 0.000 0.000 - [facility] 0.000 [facility] x10(3)/[facility] LABORATORY Specimen Anatomical Collection Method Collection Time Receive d Time (Source) Location / / Volume Laterality Blood 12/08/2021 6:02 PM 6:36 EDT PM EDT Resulting Agency Comment Spec In Lab Morgan BROWN HEMATOLOGY ORDERABLES Performing Organization Address City/State/[place] [address] (ABNORMAL) Troponin (12/08/2021 6:02 PM EDT) P athologist Signature Troponin-T 0.89 (H) 0.00 - [facility] 0.00 ng/mL [facility] Comment: The 99th percentile for [...] sample may be indicated. Reference: Third [place] Definition of Myocardial Infarction. Journal of the [place] [employer] 2012;60:1581-98 Specimen Anatomical Collection Method Collection Time Receive d Time (Source) Location / / Volume Laterality Blood 12/08/2021 6:02 PM 6:36 EDT PM EDT Resulting Agency Comment Spec In Lab Iker Cuevas MD CHEMISTRY ORDERABLES Performing Organization Address City/State/ZIP Code Phon e Number [place] [id number] COVID-19 PCR (12/08/2021 5:00 PM EDT) [facility] Method Time Signature SARS-CoV-2 Not Detected [...] using the Simplexa COVID-19 Direct Assay by [employer] as authorized by the FDA issued Emergency [...] of Pathology and Laboratory Medicine at [facility], certified under the Clinical Laboratory Improvement Amendmen [...] fact sheets at the following FDA website: https://www.fda.gov/medical-devices/fdrlgrubgth-tvvhsan-5123-mmcrd-06-snkxadyuj- jap-cumbmwdeuaqwdj-xpqwggh-devices/yxjtn-nvblnvjxuam-xhci SARS-CoV-2 Source ALARM INSTALLER Swab [facility] LABORATORY Specimen (Source) Anatomical Collection Method Collection Time Re ceived Time Location / / Volume Laterality Nasopharyngeal Swab 12/08/2021 5:00 12/08 PM EDT 6:03 PM EDT Comment: Symptoms->Surveillance Resulting Agency Comment Spec In Lab Iker Cuevas MD MICROBIOLOGY - GENERAL ORDER [place] Performing Organization Address City/State/[place] [address] EKG 12 Lead (12/08/2021 4:40 PM EDT) Component Value Ref Range Test Analysis Performed Pathologis t Method Time At Signature Ventricular rate 78 BPM MUSE SYSTEM Atrial Rate 78 BPM MUSE SYSTEM P-R Interval 152 ms MUSE SYSTEM QRS Duration 96 ms MUSE SYSTEM Q-T Interval 396 ms MUSE SYSTEM QTC Calculated 451 ms MUSE SYSTEM (Bezet) Calculated P [place] 44 degrees MUSE SYSTEM Calculated R [place] -31 degrees MUSE SYSTEM Calculated T [place] 124 degrees MUSE SYSTEM INTERPRETATION Normal sinus [...] 400 (H) 65 - 199 [facility] mg/dL [facility] Comment: Supplemental ranges: <140 mg/dL before meals <180 mg/dL all other times of the day Specimen Anatomical Collection Method Collection Time Receive d Time (Source) Location / / Volume Laterality Blood 12/08/2021 4:34 PM 2 4:34 EDT PM EDT Iker Cuevas MD POINT OF CARE TEST ORDERABLE S Performing Organization Address City/State/[place] [address] documented in this encounter [...] Given 11/23 10:30 AM EDT 300 mcg (PIPE FITTER) ONCE PRN, Starting on Wed12/10/21 at 1030, [...] 10 mg 1004 (Given - Provider: Emma Garica RN) 10 mg, Oral, DAILY, First dose [...] 35 Units (CANCELED) 2032 (Given - Provider: Barbraa Boogie RN) 35 Units, Subcutaneous, NIGHTLY, First [...] 0835 (Given - Provider: mEma Garcia RN) 0829 (Given - Provider: Lilliana [...] - Reason: Transfer to a Procedural area)1230 ([facility] Unhold - Provider: Admin Adt) 650 mg, [...] - Reason: Transfer to a Procedural area)1230 ([facility] Unhold - Provider: Admin Adt) 10 mg, [...] (Intra-Procedure), Routine niCARdipine (Cardene) (100 mcg/mL) dilution (PIPE FITTER) (CANCELED) 1030 (Given - Provider: Vitaliy Nobles [...] mL) Dextrose 10% IV over 15 isabel jnenifer per protocol OR, if no IV access, [...] episode. & nbsp; For persistent hypoglycemia, con development officer longer-acting treatment for the duration of the [...] documented in this encounter Care Teams Delivery Consultant Relationship Specialty Start Date End Date Lovely Vicente MD PCP - General 04/16/[address] [place] [address] documented as of this encounter
--- OUTSIDE RECORDS SUMMARY | 2022-04-15 08:17 | XMS_ITS | Encounter Summary ---
:1945 Author Organization [facility] [place] [address] Care Team Providers Name Role Phone Lovely Vicente MD Primary Care Provider Reason for Visit Reason Onset Date Comments Other 03/24/2019 cardiac clearance ne eded Encounter Details Date Type Department Care Team Description 03/24/2019 Telephone Cardiology at [facility] Danette Maxwell, Other (cardiac [facility] HANDLE TURNER clearance needed) [place] [address] CARDIOLOGY [place], [place] [address] (Wo rk) Social History Tobacco [...] AM EDT Leonela from [facility] [place] called requesting cardiac clearance for this patient who is to have a colonoscopy on 04/04/19. He is on anticoagulation and they will need to bridge him. Their phone # [phone], fax# [phone]. Thank you. documented in this encounter Plan of Treatment Upcoming Encounters Date Type Specialty Care Team Description 05/28/2022 Appointment Cardiology Zulma Dolan MD [facility] [place], [place] [address] (Wo rk) 05/28/2022 Laboratory Appointment Lab 05/28/2022 Office Visit Cardiology Zulma Dolan MD [facility] [place] [address] Liz Poole PA [facility] [place] [address] 06/10/2022 Office Visit Dermatology Laura Scherer MD [facility] [address]DERMAT [place], [place] [address] (Wo rk) documented as of this encounter Visit Diagnoses Not on filedocumented in this encounter Care Teams Dot Etcher Apprentice Relationship Specialty Start Date End Date Lovely Vicente MD PCP - General 04/16/[address] [place] [address] documented as of this encounter
--- OUTSIDE RECORDS SUMMARY | 2022-04-15 08:17 | XMS_ITS | Encounter Summary ---
:1945 Author Organization [facility] [place] [address] Care Team Providers Name Role Phone Lovely Vicente MD Primary Care Provider Encounter Details Date Type Department Care Team Description 01/16/2019 Laboratory Appointment Lab 3L [facility] [place] [id number] Social History Tobacco Use Types Packs/Day Years [...] Description 05/28/2022 Appointment Cardiology Zulma oDlan MD [facility] er [place], [place] [address] (Wo rk) 05/28/2022 Laboratory Appointment Lab 05/28/2022 Office Visit Cardiology Zulma Dolan MD [facility] [place] [address] Liz Poole PA [facility] [place] [address] 06/10/2022 Office Visit Dermatology Laura Scherer MD [facility] ER DR [address]MAT [place], [place] [address] (Wo rk) documented as [...] Resulting Agency Comment Spec In Lab Danette aMxwell APRN CHEMISTRY ORDERABLES Performing Organization Address City/State/[place] [address] (ABNORMAL) Basic Metabolic Panel (non-fasting) (01/16/2019 7:49 AM EDT) athologist Signature Glucose Lvl 105 65 - 199 [facility] mg/dL [facility] LABORATORY [...] mmol/L [facility] LABORATORY Calcium 9.2 8.5 [...] of body mass or the acutely ill. http://S.N. Safe&Software/[facility] [place] eGFR 79 >=60 mL/min/1.73 m?? [facility] LABOR[facility]ORY Comment: The eGFR was calculated using the CKD-EP I equation. As with all creatinine based estimates of kidney function, eGFR values calculated with the CKD-EPI equation are not accurate in patients wi th acute kidney failure, extremes of body mass or the acutely ill. http://S.N. Safe&Software/[employer] [facility] [place] Specimen Anatomical Collection Method Collection Time Receive d Time (Source) Location / / Volume Laterality Blood specimen 01/16/2019 7:49 AM 019 7:55 (specimen) EDT AM EDT Resulting Agency Comment Spec In Lab Dnaette Maxwell APRN CHEMISTRY ORDERABLES Performing Organization Address City/State/[place] [address] documented in this encounter Visit Diagnoses Diagnosis Chronic systolic heart failure documented in this encounter Care Teams Data Center Consultant Relationship Specialty Start Date End Date Lovely Vicente MD PCP - General 04/16/[address] [place] [address] documented as of this encounter
--- OUTSIDE RECORDS SUMMARY | 2022-04-15 08:17 | XMS_ITS | Encounter Summary ---
:1945 Author Organization [facility] [place] [address] Care Team Providers Name Role Phone Lovely Vicente MD Primary Care Provider Encounter Details Date Type Department Care Team Description 08/26/2018 Transcribe Orders Laboratory Lovely Vicente, Deferred diagnosis [facility] on axis I [address] [address] [place], [place] [phone] [address] Social History Tobacco Use Types Packs/Day Years [...] Dolan MD [facility] [address] [place], [place] [address] (Wo rk) 05/28/2022 Laboratory Appointment Lab 05/28/2022 Office Visit Cardiology Zulma Dolan MD [facility] [place] [address] Liz Poole PA [facility] [place] [address] 06/10/2022 Office Visit Dermatology Laura Scherer MD [facility] [address] [place], [place] [address] (Wo rk) documented as of this encounter Visit Diagnoses Diagnosis Deferred diagnosis on axis I Other unknown and unspecified cause of m orbidity or mortality documented in this encounter Care Teams Costume Designer Relationship Specialty Start Date End Date Lovely Vicente MD PCP - General 04/16/15 [facility] [address] [place] [address] documented as of this encounter
--- OUTSIDE RECORDS SUMMARY | 2022-04-15 08:17 | XMS_ITS | Encounter Summary ---
:1945 Author Organization [facility] [place] [address] Care Team Providers Name Role Phone Lovely Vicente MD Primary Care Provider Reason for Visit Reason Comments Establish Care Atrial Fibrillation Congestive Heart Failure Cardiomyopathy Encounter Details Date Type Department Care Team Description 09/06/2019 [facility] Ischemic [facility] Osvaldo STRANGE [address] [place], [place] CARDIOLOGY DEPT. [address] [place] [address] [phone] Social History Tobacco Use Types Packs/Day Years [...] today For any questions, call my office: [phone] To access your health care information, go to the web at: [email or web address] (you will need to register) For educational materials: [email or web address] Karel TRAMMELL.[facility], Clinical Cardiac Electrophysiology, [facility], [facility] A Healthy Heart: After Your [...] least 2 servings of fish a week. [place], mackerel, mcfadden, sardines, and chunk light tuna [...] irregular heartbeat. After you call 911, the reel operator may tell you to chew 1 [...] more? Visit our health information library at [email or web address] [email or web address]. You can also view health information on [employer], your personal patient account. Log in or sign up today. Enter F075 in the search box to learn more about A Healthy Heart: After Your Visit. ?? [phone] [employer]. documented in this encounter Progress Notes Karel Mcelroy MD - 09/06/2019 2:20 PM EST Images from the original note were not included. Section of Cardiology/Cardiac Electrophysiology [facility] Clinical Cardiac Electrophysiology Consult Patient ID Don Fatima 1945 [id number] Don Fatima is referred to the EP clinic by Danette Maxwell APRN PhD Chief Complaint Dyspnea on exertion Ischemic cardiomyopathy History This is a 74 y.o. male following up/being seen in clinic for evaluation for ongoing anticoagulation. He has a Iznci1Pbqi score of ~ 6-7. 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, can walk [...] on phone: None Gets together: None Attends confucianism service: None Active member of club or [...] EP clinic KAREL MCELROY MD Cardiac Electrophysiology [facility] T: [phone] F: [phone] minutes of this 40 minute encounter were spent in counselling, as described above Cc: MD Danette Cr APRN PhD Janett Espino DPM documented in this encounter Plan of Treatment Upcoming Encounters Date Type Specialty Care Team Description 05/28/2022 Appointment Cardiology Zulma Dolan MD [facility] [place], [place] [address] (Wo rk) 05/28/2022 Laboratory Appointment Lab 05/28/2022 Office Visit Cardiology Zulma Dolan MD [facility] [place] [address] Liz Poole PA [facility] [place] [address] 06/10/2022 Office Visit Dermatology Laura Scherer MD [facility] DR [address]DERMAT [place], [place] [address] (Wo rk) documented as [...] 446 ms MUSE SYSTEM (Bezet) Calculated P [place] 37 degrees MUSE SYSTEM Calculated R [place] -23 degrees MUSE SYSTEM Calculated T [place] 116 degrees MUSE SYSTEM INTERPRETATION Normal sinus rhythm MUSE SYSTEM Inferior infarct (cited on or before 25-JAN-2013) ST & T wave abnormality, consider anterolateral ischemia Abnormal ECG When compared with ECG of 19-AUG-2017 10:23, No significant change was found Confirmed by MD Cande, Michael ([id number]) on 09/08/2019 10:22:4 7 AM Specimen Anatomical [...] disease documented in this encounter Care Teams Ruby On Rails Software Developer Relationship Specialty Start Date End Date Lovely Vicente MD PCP - General 04/16/[address] [place] [address] documented as of this encounter
--- OUTSIDE RECORDS SUMMARY | 2022-04-15 08:17 | XMS_ITS | Encounter Summary ---
:1945 Author Organization [facility] [place] [address] Care Team Providers Name Role Phone Lovely Vicente MD Primary Care Provider Encounter Details Date Type Department Care Team Description 03/20/2021 Ancillary Procedure Radiology Library [place] [address] [place] [address] [phone] Social History Tobacco Use Types Packs/Day Years [...] Dolan MD [facility] [place], [place] [address] (Wo rk) 05/28/2022 Laboratory Appointment Lab 05/28/2022 Office Visit Cardiology Zulma Dolan MD [facility] [place] [address] Liz Poole PA [facility] Dr [place] [address] 06/10/2022 Office Visit Dermatology Laura Scherer MD [facility] ER DR [address]-DERMAT [place], [place] [address] (Wo rk) documented as of [...] Organization Address City/State/ZIP Code Phon e Number [place], [place] documented in this encounter Visit Diagnoses Not on filedocumented in this encounter Care Teams Welcome Wagon Hostess Relationship Specialty Start Date End Date Lovely Vicente MD PCP - General 04/16/[address] [place] [address] documented as of this encounter
--- OUTSIDE RECORDS SUMMARY | 2022-04-15 08:17 | XMS_ITS | Encounter Summary ---
:1945 Author Organization [facility] [place] [address] Care Team Providers Name Role Phone Lovely Vicente MD Primary Care Provider Encounter Details Date Type Department Care Team Description 03/20/2021 Ancillary Procedure Radiology Library [place] [address] [place] [address] [phone] Social History Tobacco Use Types Packs/Day Years [...] MD [facility] [place], [place] [address] (Wo rk) 05/28/2022 Laboratory Appointment Lab 05/28/2022 Office Visit Cardiology Zulma Dolan MD [facility] [place] [address] Liz Poole PA [facility] [place] [address] 06/10/2022 Office Visit Dermatology Laura Scherer MD [facility] ER DR [address]DERMAT [place], [place] [address] (Wo rk) documented as of [...] Organization Address City/State/ZIP Code Phon e Number [place], [place] documented in this encounter Visit Diagnoses Not on filedocumented in this encounter Care Teams Senior Advocate Relationship Specialty Start Date End Date Lovely Vicente MD PCP - General 04/16/[address] [place] [address] documented as of this encounter
--- OUTSIDE RECORDS SUMMARY | 2022-04-15 08:17 | XMS_ITS | Encounter Summary ---
:1945 Author Organization [facility] [place] [address] Care Team Providers Name Role Phone Lovely Vicente MD Primary Care Provider Encounter Details Date Type Department Care Team Description 07/28/2019 Office Visit Cardiology at [facility] Danette Maxwell Chronic systolic heart failu re; [facility] A, STACIE ASHD (arteriosclerotic heart disease); Drive [facility] S/P CABG x 3; [place], [place] MARIA VICTORIA (obstructive sleep apnea) on CPAP; [phone] CARDIOLOGY Mixed hyperlipidemia [phone] [place], [place] [address] Social History Tobacco Use Types [...] in this encounter Progress Notes Danette Maxwell, HEARING OFFICER - 07/28/2019 9:40 AM EST Images from [...] regurgitation present. 07/07/2019 - 07/21/2019 Zio Patch Collar Setter The patient had a minimum heart [...] K+ 4.5 today 6. Post-op atrial fibrillation [id number] (CHF, HTN, DM, vascular disease, thromboembolism) Amiodarone discontinued Continue coumadin INR managed by PCP 7. PAD 08/06/2017: Right 1st, 2nd, 3rd toe amputation 08/11/2017: Left??femoral arterial access, RLE??angiogram, Balloon angioplasty of R PT with Eleazar 2.5 x 80 10/25/2017: right popliteal-pedal bypass at [facility] 8. Hypothyrodism S/p thyroidectomy for goiter [...] advised: Refer to EP (Dr. Mcelroy in [place]) 5. Heart Failure Clinic follow up scheduled for: 3 months with proBNP and BMP Danette Maxwell APRN 07/28/2019 documented in this encounter Plan of Treatment Upcoming Encounters Date Type Specialty Care Team Description 05/28/2022 Appointment Cardiology Zulma Dolan MD [facility] [place], [place] [address] (Wo rk) 05/28/2022 Laboratory Appointment Lab 05/28/2022 Office Visit Cardiology Zulma Dolan MD [facility] [place] [address] Liz Poole PA [facility] [place] [address] 06/10/2022 Office Visit Dermatology Laura Scherer MD [facility] [address] [place], [place] [address] (Wo rk) documented as of this encounter Results (ABNORMAL) Basic Metabolic Panel (non-fasting) (07/28/2019 8:36 AM EST) P athologist Signature Glucose Lvl 153 65 - 199 [facility] mg/dL [facility] Comment: Diabetes: >=200 mg/dL plus symp toms BUN 22 (H) 10 - 20 mg/dL [facility] [...] of body mass or the acutely ill. http://Vaybee/[facility] Hospitalk eGFR 81 >=60 mL/min/1.73 m?? [facility] Comment: The eGFR was calculated using the CKD-EP I equation. As with all creatinine based estimates of kidney function, eGFR values calculated with the CKD-EPI equation are not accurate in patients wi th acute kidney failure, extremes of body mass or the acutely ill. http://Vaybee/[facility] ASSOCIATIONnkf Specimen Anatomical Collection Method Collection Time Receive d Time (Source) Location / / Volume Laterality Blood specimen 07/28/2019 8:36 AM 020 8:46 (specimen) EST AM EST Resulting Agency Comment Spec In Lab Danette Maxwell APRN CHEMISTRY ORDERABLES Performing Organization Address City/State/ZIP Code Phon e Number [address] (ABNORMAL) pro-Brain Natriuretic Peptide [...] [facility]/[place]IP [place] [address] documented in this encounter Visit Diagnoses Diagnosis Chronic systolic heart failure ASHD (arteriosclerotic heart disease) Coronary atherosclerosis of unspecified type of vessel, [place] or graft S/P CABG x 3 Postsurgical aortocoronary bypass status MARIA VICTORIA (obstructive sleep apnea) on CPAP Obstructive sleep apnea (adult) (pediatr ic) Mixed hyperlipidemia documented in this encounter Care Teams Orthodontist Small Business Owner Relationship Specialty Start Date End Date Lovely Vicente MD PCP - General 04/16/[address] [place] [address] documented as of this encounter
--- OUTSIDE RECORDS SUMMARY | 2022-04-15 08:17 | XMS_ITS | Encounter Summary ---
:1945 Author Organization [facility] Address [facility] [place] [address] Care Team Providers Name Role Phone Lovely Vicente MD Primary Care Provider Reason for Referral Diagnostic Test (Routine) - Closed Specialty Diagnoses / Procedures Referred By Contact Refer red To Contact Cardiology Diagnoses Chronic systolic heart failure Danette Maxwell APRN [facility] Non-Inv Card Lab Procedures Echocardiogram Transthoracic(Leb) [facility] [place] [address] [place] [address] Referral ID Status Reason Start Date Expiration Date Visits V isits Requested Authorized [id number] Closed Specialty 07/17/2019 09/14/2019 1 1 Service Requested Encounter Details Date Type Department Care Team Description 01/16/2019 Office Visit Cardiology at [facility] Danette Maxwell, Chronic systolic heart failu re; [facility] STACIE Cardiomyopathy, ischemic; Drive [facility] Hx of thyroid cancer; [place], [place] DR [place]MORE (arteriosclerotic heart disease); [address] CARDIOLOGY MARIA VICTORIA (obstructive sleep apnea) on CPAP [phone] [place], [place] [address] (Wo rk) Social History Tobacco Use Types [...] K+ 4.6 today 6. Post-op atrial fibrillation [id number] (CHF, HTN, DM, vascular disease, thromboembolism) [...] Zulma Dolan MD [facility] [place], [place] [address] (Wo rk) 05/28/2022 Laboratory Appointment Lab 05/28/2022 Office Visit Cardiology Zulma Dolan MD [facility] [place] [address] Liz Poole PA [facility] [place] [address] 06/10/2022 Office Visit Dermatology Laura Scherer MD [facility] DR [address]DERMAT [place], [place] [address] (Wo rk) documented as of this encounter Results ECHOCARDIOGRAM COMPLETE W CONTRAST (07/28/2019 8:19 AM EST) athologist Signature EF 40 HEARTLAB SYSTEM Anatomical Region Laterality Modality Other Specimen (Source) Anatomical Location Collection Method / Collectio n Time Received Time / Laterality Volume 07/28/2019 Narrative 07/28/2019 8:38 AM EST Procedure: ?Transthoracic Echocardiogram Patient: ?NATALYA Mccollum ? (Age): 1945(74y) Med Rec#: ? [id number] ?Sex: ?M ? Site Loc: ? [facility] ?Ht / Wt: ??172(cm)/81(kg) Pt. Loc: ?Echo Lab ?BSA: ?1.94 Study Date: ?? 07/28/2019 ?Pt. Type: Outpatient Tape: ? Referring: MARY ELLEN Reading: Ifeanyi Truong ([id number]) Acetylene Gas Compressor: Fadumo Flanagan RDCS, REGINA Diagnosis: *Chronic systolic [...] E-wave Vmax ?1 ?m/sec ? MV deceleration hynv124.5 ? msec ? MV A-wave Vmax ?1 [...] ? Pulmonic Valve/Qp:Qs ?Value ?Units (Range) ? [place] end-diastolic Vma1.1 ?m/sec ? Wall Motion: Segment Name ?Rest ? Base-Anteroseptal ?? Normal ? Base-Anterior ? Normal ? Base-Anterolateral ??Normal ? Base-Posterolateral Normal ? Base-Inferior ? Akinetic ? Base-Inferoseptal ?? Normal ? Mid-Anteroseptal ?Normal ? Mid-Anterior ?Hypokinetic ? Mid-Anterolateral ?? Normal ? Mid-Posterolateral ??Normal ? Mid-Inferior ?Hypokinetic ? Mid-Inferoseptal ?Normal ? [place]-Septal ? Normal ? [place]-Anterior ? Hypokinetic ? [place]-Lateral ?Normal ? [place]-Inferior ? Akinetic ? [place]-Tip ?Hypokinetic ? This report has been electronically sign ed by: _ Ifeanyi Truong M.D. ? 07/28/2019 0 8:38:01 Images reviewed and interpretation [facility] Card[facility] Procedure Note Ifeanyi Truong MD - 07/28/2019Formatt ing of this note might be different from the original. Procedure: Transthoracic Echocardiogram Patient: NATALYA MCBRIDE(Age): [birth year]74y) Med Rec#: [id number] Sex: M Site Loc: [facility] Ht / Wt: 172(cm)/81(kg) Pt. Loc: Echo Lab BSA: 1.94 Study Date: 07/28/2019 Pt. Type: Outpati ent Tape: Referring: MARY ELLEN Reading: Ifeanyi Truong ([id number]) Acetylene Gas Compressor: Fadumo Flanagan [facility], [place] Diagnosis: *Chronic systolic (congestive) [...] MV E-wave Vmax 1 m/sec MV deceleration ewqb402.5 msec MV A-wave Vmax 1 m/sec MV [...] 0.7 ratio Pulmonic Valve/Qp:Qs Value Units (Range) [place] end-diastolic Vma1.1 m/sec Wall Motion: Segment Name Rest Base-Anteroseptal Normal Base-Anterior Normal Base-Anterolateral Normal Base-Posterolateral Normal Base-Inferior Akinetic Base-Inferoseptal Normal Mid-Anteroseptal Normal Mid-Anterior Hypokinetic Mid-Anterolateral Normal Mid-Posterolateral Normal Mid-Inferior Hypokinetic Mid-Inferoseptal Normal [place]-Septal Normal [place]-Anterior Hypokinetic [place]-Lateral Normal [place]-Inferior Akinetic [place]-Tip Hypokinetic This report has been electronically sign ed by: _ Ifeanyi Truong M.D. 07/28/2019 08:38:0 1 Images reviewed and interpretation verif ied [facility] Cardiac Ultrasound Laboratory Danette Maxwell APRN ECHO ORDERABLES (ABNORMAL) Basic Metabolic Panel (non-fasting) (01/16/2019 7:49 AM EDT) P athologist Signature Glucose Lvl 105 65 - 199 [facility] mg/dL [facility] Comment: Diabetes: >=200 mg/dL plus [...] of body mass or the acutely ill. http://Solaicx/DragonRADnkf eGFR 79 >=60 mL/min/1.73 m?? [facility] Comment: The eGFR was calculated using the CKD-EP I equation. As with all creatinine based estimates of kidney function, eGFR values calculated with the CKD-EPI equation are not accurate in patients wi th acute kidney failure, extremes of body mass or the acutely ill. http://Solaicx/[facility] EL[facility] CITYnkf Specimen Anatomical Collection Method Collection Time Receive d Time (Source) Location / / Volume Laterality Blood specimen 01/16/2019 7:49 AM 019 7:55 (specimen) EDT AM EDT Resulting Agency Comment Spec In Lab Danette Maxwell APRN CHEMISTRY ORDERABLES Performing Organization Address City/State/Z[place] [address] (ABNORMAL) pro-Brain Natriuretic Peptide (01/16/2019 7:49 AM EDT) P athologist Signature ProBNP 780 (H) <=125 pg/mL [facility] Specimen Anatomical Collection Method Collection Time Receive d Time (Source) Location / / Volume Laterality Blood specimen 01/16/2019 7:49 AM 019 7:55 (specimen) EDT AM EDT Resulting Agency Comment Spec In Lab Danette Maxwell VMWARE ARCHITECT CHEMISTRY ORDERABLES Performing Organization Address City/State/Z[place] [address] documented in this encounter Visit Diagnoses Diagnosis Chronic systolic heart failure Cardiomyopathy, ischemic Other specified forms of chronic ischemi c heart disease Hx of thyroid cancer Personal history of malignant neoplasm o f thyroid ASHD (arteriosclerotic heart disease) Coronary atherosclerosis of unspecified type of vessel, quechan or graft MARIA VICTORIA (obstructive sleep apnea) on CPAP Obstructive sleep apnea (adult) (pediatr ic) Chronic systolic heart failure documented in this encounter Care Teams Skin Lap Bonder Relationship Specialty Start Date End Date Lovely Vicente MD PCP - General 04/16/[address] [place] [address] documented as of this encounter
--- OUTSIDE RECORDS SUMMARY | 2022-04-15 08:17 | XMS_ITS | Encounter Summary ---
:1945 Author Organization [facility] [address] Care Team Providers Name Role Phone Lovely Vicente MD Primary Care Provider Encounter Details Date Type Department Care Team Description 04/16/2021 Laboratory Appointment Lab 3L [facility] [place] [id number] Social History Tobacco Use Types Packs/Day Years [...] MD [facility] er [address] [place], [place] [address] (Wo rk) 05/28/2022 Laboratory Appointment Lab 05/28/2022 Office Visit Cardiology Zulma Dolan MD [facility] [place] [address] Liz Poole PA [facility] [place] [address] 06/10/2022 Office Visit Dermatology Laura Scherer MD [facility] ER DR TEJA GR[address]DERMAT [place], [place] [address] (Wo rk) documented as of this encounter [...] [place] [address] (ABNORMAL) Basic Metabolic Panel (non-fasting) (04/16/2021 9:58 AM EDT) athologist Signature Glucose Lvl 77 65 - 199 [facility] mg/dL [facility] [...] [place] [address] documented in this encounter Visit Diagnoses Diagnosis Chronic systolic heart failure documented in this encounter Care Teams Nutrition Aides Teacher Relationship Specialty Start Date End Date Lovely Vicente MD PCP - General 04/16/[address] [place] [address] documented as of this encounter
--- OUTSIDE RECORDS SUMMARY | 2022-04-15 08:17 | XMS_ITS | Encounter Summary ---
:1945 Author Organization [facility] [place] [address] Care Team Providers Name Role Phone Lovely Vicente MD Primary Care Provider Encounter Details Date Type Department Care Team Description 03/20/2021 Ancillary Procedure Radiology Library [place] [address] [place] [address] [phone] Social History Tobacco Use Types Packs/Day Years [...] [facility] er [address] [place], [place] [address] (Wo rk) 05/28/2022 Laboratory Appointment Lab 05/28/2022 Office Visit Cardiology Zulma Dolan MD [facility] [place] [address] [facility] [place] [address] 06/10/2022 Office Visit Dermatology Laura Scherer MD [facility] ER DR [address]DERMAT [place], [place] 0[address] (Wo rk) documented [...] Address City/State/ZIP Code Phon e Number [place], [place] documented in this encounter Visit Diagnoses Not on filedocumented in this encounter Care Teams Gm Relationship Specialty Start Date End Date Lovely Vicente MD PCP - General 04/16/[address] [place] [address] documented as of this encounter
--- OUTSIDE RECORDS SUMMARY | 2022-04-15 08:17 | XMS_ITS | Encounter Summary ---
:1945 [place] [address] Care Team Providers Name Role Phone Lovely Vicente MD Primary Care Provider Reason for Visit Reason Comments Skin Cancer Examination Encounter Details Date Type Department Care Team Description 03/20/2021 Office Visit Dermatology at [facility] Brennen Rene MD History of melanoma; [facility] History of dysplastic nevus; [address] Multiple benign nevi; [place] [address] [facility] (seborrheic keratosis); [phone] [facility] [place] (actinic keratosis) [place], [place] [address] Social History Tobacco Use Types [...] no SOCIAL HISTORY 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 Last visit at [facility] Derm: 01/02/2020 Medications: Reviewed in [...] FSE; history of Melanoma []Note routed to guidance secretary [x]Recall has been placed in scheduling [...] TrudiZulma Knowles MD [facility] [place], [place] [address] (Wo rk) 05/28/2022 Laboratory Appointment Lab 05/28/2022 Office Visit Cardiology Zulma Dolan MD [facility] [place] [address] Liz Poole PA [facility] [place] [address] 06/10/2022 Office Visit Dermatology Laura Rene MD [facility] DR TE[address]DERMAT [place], [place] [address] (Wo rk) documented as [...] keratosis documented in this encounter Care Teams Dramatic Teacher Relationship Specialty Start Date End Date Lovely Vicente MD PCP - General 04/16/[address] [place] [address] documented as of this encounter
--- OUTSIDE RECORDS SUMMARY | 2022-04-15 08:17 | XMS_ITS | Encounter Summary ---
:1945 Author Organization [facility] [place] [address] Care Team Providers Name Role Phone Lovely Vicente MD Primary Care Provider Encounter Details Date Type Department Care Team Description 12/07/2021 External Results Administration [facility] [place] [address] Social History Tobacco Use Types Packs/Day [...] [facility] er [address] [place] [address] (Wo rk) 05/28/2022 Laboratory Appointment Lab 05/28/2022 Office Visit Cardiology Zulma oDlan [place] [address] Liz Poole PA [facility] [place] [address] 06/10/2022 Office Visit Dermatology Laura Scherer MD [facility] ER DR [address]-DERMAT [place], [place] [address] (Wo rk) documented as of [...] filedocumented in this encounter Care Teams Senior Controls Technician Relationship Specialty Start Date End Date Lovely Vicente MD PCP - General 04/16/[address] [place] [address] documented as of this encounter
--- OUTSIDE RECORDS SUMMARY | 2022-04-15 08:17 | XMS_ITS | Encounter Summary ---
:1945 [place] [address] Care Team Providers Name Role Phone Lovely Vicente MD Primary Care Provider Encounter Details Date Type Department Care Team Description 12/07/2021 Ancillary Procedure Rad[facility] Lovely murillo MD [facility] [address] [address] [place], [place] [phone] (Wo lissa) [address] [phone] Social History Tobacco Use Types Packs/Day Years [...] MD [facility] [address] [place] [address] (Wo rk) 05/28/2022 Laboratory Appointment Lab 05/28/2022 Office Visit Cardiology Zulma Dolan MD [facility] [place] [address] Liz Poole PA [facility] [place] [address] 06/10/2022 Office Visit Dermatology Laura Scherer MD [facility] DR [address]DERMAT [place], [place] [address] (Wo rk) documented as [...] Organization Address City/State/ZIP Code Phon e Number [place], [place] documented in this encounter Visit Diagnoses Not on filedocumented in this encounter Care Teams Project Design Engineer Relationship Specialty Start Date End Date Lovely Vicente MD PCP - General 04/16/[address] [place] [address] documented as of this encounter
--- OUTSIDE RECORDS SUMMARY | 2022-04-15 08:17 | XMS_ITS | Encounter Summary ---
:1945 Author Organization [facility] [address] Care Team Providers Name Role Phone Lovely Vicente MD Primary Care Provider Encounter Details Date Type Department Care Team Description 12/08/2021 External Results Non-Invasive Cardiology Lab Mar y None [facility] [place] [address] Social History Tobacco Use Types Packs/Day [...] MD [facility] er Dr [place], [place] [address] (Wo rk) 05/28/2022 Laboratory Appointment Lab 05/28/2022 Office Visit Cardiology Zulma Dolan MD [facility] [place] [address] Liz Poole PA [facility] [place] [address] 06/10/2022 Office Visit Dermatology Laura Scherer MD [facility] [address] [place], [place] [address] [...] filedocumented in this encounter Care Teams Professional Nurse Relationship Specialty Start Date End Date Lovely Vicente MD PCP - General 04/16/[address] [place] [address] documented as of this encounter
--- OUTSIDE RECORDS SUMMARY | 2022-04-15 08:17 | XMS_ITS | Encounter Summary ---
:1945 Author Organization [facility] [place] [address] Care Team Providers Name Role Phone Lovely Vicente MD Primary Care Provider Encounter Details Date Type Department Care Team Description 12/07/2021 Telephone Cardiology Eddi Briceño Jr., [facility] [place] [address] [facility] [phone] CARDIOLOGY DEPT [place], [place] [address] (Wo rk) Social History Tobacco [...] the OSH ED provider/staff member. Referring Location: [facility] Referring Provider: Marisela Dean, KNOWLEDGE ENGINEER [address] [place] [address] Don Veda Kushal 76 y.o. w / [...] bpm, LAFB, poor R wave progression, septal OH, and lateral STD, overall no significantchange from [...] Dolan MD [facility] [place] [address] (Wo rk) 05/28/2022 Laboratory Appointment Lab 05/28/2022 Office Visit Cardiology Zulma Dolan MD [facility] [place] [address] Liz Poole PA [facility] [place] [address] 06/10/2022 Office Visit Dermatology Laura Scherer MD [facility] DR [address] [place], [place] [address] (Wo rk) documented as of this encounter Visit Diagnoses Not on filedocumented in this encounter Care Teams Entry Level Machine Operator Relationship Specialty Start Date End Date Lovely Vicente MD PCP - General 04/16/15 [facility] [address] [place] [address] documented as of this encounter
--- OUTSIDE RECORDS SUMMARY | 2022-04-15 08:17 | XMS_ITS | Encounter Summary ---
:1945 Author Organization [facility] [place] [address] Care Team Providers Name Role Phone Lovely Vicente MD Primary Care Provider Encounter Details Date Type Department Care Team Description 02/19/2020 Telephone Dermatology at [facility] Ariana Wilder LPN [address] [place] [address] Social History Tobacco Use Types Packs/Day [...] Cardiology Zulma Dolan MD [facility] [place], [place] [address] (Wo rk) 05/28/2022 Laboratory Appointment Lab 05/28/2022 Office Visit Cardiology Zulma Dolan MD [facility] [place] [address] Liz Poole PA [facility] [place] [address] 06/10/2022 Office Visit Dermatology Laura Scherer MD [facility] DR [address]MAT [place], [place] [address] (Wo rk) documented as of this encounter Visit Diagnoses Not on filedocumented in this encounter Care Teams Investigations Director Relationship Specialty Start Date End Date Lovely Vicente MD PCP - General 04/16/[address] [place] [address] documented as of this encounter
--- OUTSIDE RECORDS SUMMARY | 2022-04-15 08:17 | XMS_ITS | Encounter Summary ---
:1945 [place] [address] Care Team Providers Name Role Phone Lovely Vicente MD Primary Care Provider Encounter Details Date Type Department Care Team Description 07/12/2019 Office Visit Dermatology at [facility], Rigoberto Yarbrough (actinic keratosis); MD [facility] (seborrheic keratosis); [address] [facility] Multiple benign nevi; [place] [address] History of melanoma [phone] [facility] [place], [place] [address] Social History Tobacco Use Types [...] Dolan MD [facility] Dr [place], [place] [address] (Wo rk) 05/28/2022 Laboratory Appointment Lab 05/28/2022 Office Visit Cardiology Zulma Dolan MD [facility] [place] [address] Liz Poole PA [facility] [place] [address] 06/10/2022 Office Visit Dermatology Laura Scherer MD [facility] DR [address]DERMAT [place], [place] 0[address] (Wo rk) documented as of this encounter Visit Diagnoses Diagnosis [place] (actinic keratosis) Actinic keratosis [place] (seborrheic keratosis) Other seborrheic keratosis Multiple benign nevi Benign neoplasm of skin, site unspecifie d History of melanoma Personal history of malignant melanoma o f skin documented in this encounter Care Teams Cash Person Relationship Specialty Start Date End Date Lovely Vicente MD PCP - General 04/16/[address] [facility] [address] [place] [address] documented as of this encounter
--- OUTSIDE RECORDS SUMMARY | 2022-04-15 08:17 | XMS_ITS | Encounter Summary ---
:1945 Author Organization [facility] [place] [address] Care Team Providers Name Role Phone Lovely Vicente MD Primary Care Provider Encounter Details Date Type Department Care Team Description 11/07/2019 TH Visit Cardiology at [facility] Danette Maxwell (arteriosclerotic heart disease); (TeleHealth) [facility] STACIE Gomes Cardiomyopathy, ischemic; Drive [facility] S/P CABG x 3; [place], [place] MARIA VICTORIA (obstructive sleep apnea) on CPAP [phone] CARDIOLOGY [phone] [place], [place] [address] Social History Tobacco Use Types [...] regurgitation present. 07/07/2019 - 07/21/2019 Zio Patch Dentistry Professor The patient had a minimum heart rate [...] at last check 6. Post-op atrial fibrillation [id number] (CHF, HTN, DM, vascular disease, thromboembolism) Amiodarone discontinued Continue coumadin INR managed by PCP 7. PAD 08/06/2017: Right 1st, 2nd, 3rd toe amputation 08/11/2017: Left??femoral arterial access, RLE??angiogram, Balloon angioplasty of R PT with Eleazar 2.5 x 80 10/25/2017: right popliteal-pedal bypass at [facility] Continue Coumadin 8. Hypothyrodism S/p [...] Cardiology Zulma Dolan MD [facility] [place], [place] [address] (Wo rk) 05/28/2022 Laboratory Appointment Lab 05/28/2022 Office Visit Cardiology Zulma Dolan MD [facility] [place] [address] Liz Poole PA [facility] [place] [address] 06/10/2022 Office Visit Dermatology Laura Scherer MD [facility] DR [address] [place], [place] [address] (Wo rk) documented as of [...] ic) documented in this encounter Care Teams Mold Carrier Relationship Specialty Start Date End Date Lovely Vicente MD PCP - General 04/16/[address] [place], [place] [address] documented as of this encounter
--- OUTSIDE RECORDS SUMMARY | 2022-04-15 08:17 | XMS_ITS | Encounter Summary ---
:1945 Author Organization [facility] [place] [address] Care Team Providers Name Role Phone Lovely Vicente MD Primary Care Provider Encounter Details Date Type Department Care Team Description 07/28/2019 Laboratory Appointment Lab 3L [facility] [place] [address] Social History Tobacco Use Types Packs/Day Years [...] Zulma Dolan MD [facility] er [place], [place] [address] (Wo rk) 05/28/2022 Laboratory Appointment Lab 05/28/2022 Office Visit Cardiology Zulma Dolan MD [facility] [place] [address] Liz Poole PA [facility] [place] [address] 06/10/2022 Office Visit Dermatology Laura Scherer MD [facility] DR [address] [place] [address] (Wo rk) documented as of this encounter [...] Organization Address City/State/[place] [address] (ABNORMAL) Basic Metabolic Panel (non-fasting) (07/28/2019 8:36 AM EST) athologist Signature Glucose Lvl 153 65 - 199 [facility] mg/dL [facility] LABORATORY Comment: Diabetes: >=200 mg/dL [...] LABORATORY Calcium 9.3 8.5 - 10.5 mg/dL [facility] LABORAT[facility] Estimated GFR 70 >=60 mL/min/1.73 m?? [facility] Comment: The eGFR was calculated using the CKD-EP I equation. As with all creatinine based estimates of kidney function, eGFR values calculated with the CKD-EPI equation are not accurate in patients wi th acute kidney failure, extremes of body mass or the acutely ill. http://SixthEye/Adayanankf eGFR 81 >=60 mL/min/1.73 m?? [facility] Comment: The eGFR was calculated using the CKD-EP I equation. As with all creatinine based estimates of kidney function, eGFR values calculated with the CKD-EPI equation are not accurate in patients wi th acute kidney failure, extremes of body mass or the acutely ill. http://SixthEye/MUSCOGEEnkf Specimen Anatomical Collection Method Collection Time Receive d Time (Source) Location / / Volume Laterality Blood specimen 07/28/2019 8:36 AM 020 8:46 (specimen) EST AM EST Resulting Agency Comment Spec In Lab Danette Maxwell APRN CHEMISTRY ORDERABLES Performing Organization Address City/State/[place] [address] documented in this encounter Visit Diagnoses Diagnosis Chronic systolic heart failure documented in this encounter Care Teams Sales Manager Prearranged Funerals Relationship Specialty Start Date End Date Lovely Vicente MD PCP - General 04/16/[address] [place] [address] documented as of this encounter
--- OUTSIDE RECORDS SUMMARY | 2022-04-15 08:17 | XMS_ITS | Encounter Summary ---
:1945 [place] [address] Care Team Providers Name Role Phone Lovely Vicente MD Primary Care Provider Encounter Details Date Type Department Care Team Description 04/16/2021 Office Visit Cardiology at [facility] Liz Poole, Chronic systolic heart [facility] [place] [address] Cardiology Dept [phone] [place], [place] [address] Social History Tobacco Use Types [...] was feeling good. 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 07/07/2019 - 07/21/2019 Zio Patch Customs Appraiser The patient had a minimum heart rate [...] K+ 5.2 today 6. Post-op atrial fibrillation [id number] (CHF, HTN, DM, vascular disease, thromboembolism) [...] Cardiology Zulma Dolan MD [facility] [place], [place] [address] (Wo rk) 05/28/2022 Laboratory Appointment Lab 05/28/2022 Office Visit Cardiology Zulma Dolan MD [facility] [place] [address] Liz Poole PA [facility] [place] [address] 06/10/2022 Office Visit Dermatology Laura Scherer MD [facility] DR [address]MAT [place], [place] [address] (Wo rk) documented as of this encounter Results (ABNORMAL) Basic Metabolic Panel (non-fasting) (04/16/2021 9:58 AM EDT) athologist Signature Glucose Lvl 77 65 - 199 [facility] mg/dL [facility] Comment: Diabetes: >=200 [...] Organization Address City/State/[place] [address] (ABNORMAL) pro-Brain Natriuretic Peptide [...] Organization Address City/State/[place] [address] documented in this encounter Visit Diagnoses Diagnosis Chronic systolic heart failure documented in this encounter Care Teams Card Stripper Relationship Specialty Start Date End Date Lovely Vicente MD PCP - General 04/16/[address] [place] [address] documented as of this encounter
--- OUTSIDE RECORDS SUMMARY | 2022-04-15 08:18 | XMS_ITS | Encounter Summary ---
:1945 Author Organization [place] [address] Care Team Providers Name Role Phone Lovely Vicente MD Primary Care Provider Encounter Details Date Type Department Care Team Description 08/30/2017 [facility] ischemia [facility] [address] [place], [place] VASCULAR SURGERY [address] [place] [address] [phone] Social History Tobacco Use Types Packs/Day Years [...] Smith MD - 08/30/2017 2:00 PM EST [facility] staff: Patient returns. He is doing [...] Dolan MD [facility] Dr [place], [place] [address] (Wo rk) 05/28/2022 Laboratory Appointment Lab 05/28/2022 Office Visit Cardiology Zulma Dolan MD [facility] [place] [address] Liz Poole PA [facility] [place] [address] 06/10/2022 Office Visit Dermatology Laura Scherer MD [facility] DR [address]MAT [place], [place] [address] (Wo rk) documented as of this encounter Visit Diagnoses Diagnosis Critical lower limb ischemia Unspecified circulatory system disorder documented in this encounter Care Teams Hot Wire Glass Tube Cutter Relationship Specialty Start Date End Date Lovely Vicente MD PCP - General 04/16/[address] [place] [address] documented as of this encounter
--- OUTSIDE RECORDS SUMMARY | 2022-04-15 08:18 | XMS_ITS | Encounter Summary ---
:1945 Author Organization [facility] [place] [address] Care Team Providers Name Role Phone Lovely Vicente MD Primary Care Provider Encounter Details Date Type Department Care Team Description 10/05/2017 Telephone Cardiology at [facility] Tamiko Sin MD [facility] [place] [address] CARDIOLOGY DEPT [phone] [place], [place] [address] (Wo rk) Social History Tobacco [...] Dolan MD [facility] er [address] [place] [address] (Wo rk) 05/28/2022 Laboratory Appointment Lab 05/28/2022 Office Visit Cardiology Zulma Dolan MD [facility] [place] [address] Liz Poole PA [facility] [place] [address] 06/10/2022 Office Visit Dermatology Laura Scherer MD [facility] ER DR [address]MAT [place], [place] [address] (Wo rk) documented as of this encounter Visit Diagnoses Not on filedocumented in this encounter Care Teams Plant Wrapper Relationship Specialty Start Date End Date Lovely Vicente MD PCP - General 04/16/[address] [place] [address] documented as of this encounter
--- OUTSIDE RECORDS SUMMARY | 2022-04-15 08:18 | XMS_ITS | Encounter Summary ---
:1945 Author Organization [facility] Address [facility] [place] [address] Care Team Providers Name Role Phone Lovely Vicente MD Primary Care Provider Encounter Details Date Type Department Care Team Description 10/07/2017 Office Visit Cardiology at [facility] Danette Maxwell Chronic systolic heart failu re; 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 [...] by Dr. Espino On IV antibiotics at [facility] Today: Mr. Fatima is [...] continue to see Dr. Bains well at [facility] and follow his wound on his right lower extremity. And she will continue to direct antibiotic treatment. Ihave asked that the echocardiogram results be faxed to Dr. Zurita at [facility]. 1. ASCVD Continue ASA, BB and [...] and bone removal by Dr. Aguero at [facility]. Currently receiving IV antibiotics at [facility] ? Plan: 1. A [...] Cardiology Zulma Dolan MD [facility] [place], [place] [address] (Wo rk) 05/28/2022 Laboratory Appointment Lab 05/28/2022 Office Visit Cardiology Zulma Dolan MD [facility] [place] [address] Liz Poole PA [facility] [place] [address] 06/10/2022 Office Visit Dermatology Laura Scherer MD [facility] DR [address]MAT OLOGY [place], [place] [address] (Wo rk) documented as of this encounter Results (ABNORMAL) Basic Metabolic Panel (non-fasting) (10/07/2017 8:48 AM EDT) athologist Signature Glucose Lvl 99 65 - 199 [facility] mg/dL [facility] LAB[facility]ATORY Comment: [...] or in patients with acute kidney failure. http://Amiigo.Mobileum/DHnkdep http://SecureMedia/DHMCnkf Specimen Anatomical Collection Method Collection Time Receive d Time (Source) Location / / Volume Laterality Blood specimen 10/07/2017 8:48 AM 018 8:50 (specimen) EDT AM EDT Resulting Agency Comment Spec In Lab Danette Maxwell APRN CHEMISTRY ORDERABLES Performing Organization Address City/State/[place] [address] (ABNORMAL) pro-Brain Natriuretic Peptide (10/07/2017 8:48 AM EDT) P athologist Signature ProBNP 1,170 (H) <=125 [facility] pg/mL [facility] Specimen Anatomical Collection Method Collection Time Receive d Time (Source) Location / / Volume Laterality Blood specimen 10/07/2017 8:48 AM 018 8:50 (specimen) EDT AM EDT Resulting Agency Comment Spec In Lab Danette Maxwell APRN CHEMISTRY ORDERABLES Performing Organization Address City/State/[place] [address] documented in this encounter Visit Diagnoses Diagnosis Chronic systolic heart failure S/P CABG x 3 Postsurgical aortocoronary bypass status On amiodarone therapy Atrial fibrillation, unspecified type ASCVD (arteriosclerotic cardiovascular d isease) Unspecified cardiovascular disease documented in this encounter Care Teams Welder Explosion Relationship Specialty Start Date End Date Lovely Vicente MD PCP - General 04/16/[address] [place] [address] documented as of this encounter
--- OUTSIDE RECORDS SUMMARY | 2022-04-15 08:18 | XMS_ITS | Encounter Summary ---
:1945 Author Organization [facility] [place] [address] Care Team Providers Name Role Phone Lovely Vicente MD Primary Care Provider Reason for Referral Diagnostic Test (Routine) - Specialty Diagnoses / Procedures Referred By Contact Refer red To Contact Cardiology Diagnoses Chronic systolic heart failure Danette Maxwell APRN [facility] Non-Inv Card Lab Procedures Echocardiogram Transthoracic(Leb) [facility] [place] [phone] [place] [address] Referral ID Status Reason Start Date Expiration Visits Visits Date Requested Authorized [id number] Specialty 08/15/2018 08/15/2018 1 1 Service Requested Reason for Visit Diagnostic Test (Routine) - Specialty Diagnoses / Procedures Referred By Contact Nawaf owen To Contact Cardiology Diagnoses Chronic systolic heart failure Danette Maxwell APRN [facility] Non-Inv Card Lab Procedures Echocardiogram Transthoracic(Leb) [facility] [place] [address] [place] [address] Referral ID Status Reason Start Date Expiration Visits Visits Date Requested Authorized [id number] Specialty 08/15/2018 08/15/2018 1 1 Service Requested Encounter Details Date Type Department Care Team Description 08/15/2018 Hospital Encounter Non-Invasive Danette Maxwell Chron ic systolic Cardiology Lab Barbara Gomes APRN heart failure [facility] [place] [address] [facility] [place] [phone] (Work) [phone] Social History Tobacco Use Types Packs/Day Years [...] MD [facility] [place], [place] [address] (Wo rk) 05/28/2022 Laboratory Appointment Lab 05/28/2022 Office Visit Cardiology Zulma Dolan [place] [address] Liz Poole PA [facility] [place] [address] 06/10/2022 Office Visit Dermatology Laura Scherer MD [facility] DR TE[address] GR[address]DERMAT OLOGY [place], [place] 0[address] (Wo rk) documented as [...] Mccollum ? (Age): 1945(73y) Med Rec#: ? [id number] ?Sex: ?M ? Site Loc: ? [facility] ?Ht / Wt: ??172(cm)/81(kg) Pt. Loc: ?Echo Lab ?BSA: ?1.94 Study Date: ?? 08/15/2018 ?Pt. Type: Outpatient Tape: ? Referring: MARY ELLEN Reading: Scott Ortega ([id number]) Adjunct Political Science Instructor: Laura Sargent Diagnosis: *Chronic systolic (congestive) [...] E-wave Vmax ?1.2 ?m/sec ? MV deceleration izdq750.4 ? msec ? MV A-wave Vmax ?0.7 [...] ? Mid-Inferior ?Hypokinetic ? Mid-Inferoseptal ?Hypokinetic ? [place]-Septal ? Akinetic ? [place]-Anterior ? Hypokinetic ? [place]-Lateral ?Akinetic ? [place]-Inferior ? Hypokinetic ? [place]-Tip ?Akinetic ? This report has been electronically sign ed by: _ Scott Ortega M.D. ? 08/15/2018 08:17:26 Images reviewed and interpretation ver ied [facility] Cardiac Ultrasound Laboratory Procedure Note Scott Ortega MD - 08/15/2018Format ting of this note might be different from the original. Procedure: Transthoracic Echocardiogram Patient: NATALYA MCBRIDE(Age): [birth year]73y) Med Rec#: [id number] Sex: M Site Loc: [facility] Ht / Wt: 172(cm)/81(kg) Pt. Loc: Echo Lab BSA: 1.94 Study Date: 08/15/2018 Pt. Type: Outpati ent Tape: Referring: MARY ELLEN Reading: Scott Ortega ([id number]) Adjunct Political Science Instructor: Laura Sargent Diagnosis: *Chronic systolic (congestive) [...] MV E-wave Vmax 1.2 m/sec MV deceleration wajw650.4 msec MV A-wave Vmax 0.7 m/sec MV [...] Akinetic Mid-Posterolateral Akinetic Mid-Inferior Hypokinetic Mid-Inferoseptal Hypokinetic [place]-Septal Akinetic [place]-Anterior Hypokinetic [place]-Lateral Akinetic [place]-Inferior Hypokinetic [place]-Tip Akinetic This report has been electronically sign ed by: _ Scott Ortega M.D. 08/15/2018 08:17: 26 Images reviewed and interpretation verif ied [facility] Cardiac Ultrasound Laboratory Danette A Hans BPM ANALYST ECHO ORDERABLES documented in this encounter Visit [...] Routine documented in this encounter Care Teams Neurourologist Relationship Specialty Start Date End Date Lovely Vicente MD PCP - General 04/16/[address] [place] [address] documented as of this encounter
--- OUTSIDE RECORDS SUMMARY | 2022-04-15 08:18 | XMS_ITS | Encounter Summary ---
:1945 Author Organization [place] [address] Care Team Providers Name Role Phone Lovely Vicente MD Primary Care Provider Encounter Details Date Type Department Care Team Description 11/29/2017 Laboratory Lab 3L Barbara Chronic systoli c congestive heart failure; Appointment [facility] ASCVD (ar teriosclerotic cardiovascular disease); Hospital Cardiomyopathy, [place] [address] Social History Tobacco Use Types [...] MD [facility] er [place], [place] [address] (Wo rk) 05/28/2022 Laboratory Appointment Lab 05/28/2022 Office Visit Cardiology Zulma Dolan MD [facility] [place] [address] Liz Poole PA [facility] [place] [address] 06/10/2022 Office Visit Dermatology Laura Scherer MD [facility] ER DR [address] [place], [place] [address] (Wo rk) documented as of [...] Signature PT 23.0 (H) 9.4 - 12.5 [facility] LABORATORY INR 2.1 [facility] LABORATORY [...] Organization Address City/State/[place] [address] (ABNORMAL) Basic Metabolic Panel (non-fasting) (11/29/2017 8:22 AM EDT) P athologist Signature Glucose Lvl 217 (H) 65 - 199 [facility] mg/dL [facility] Comment: Diabetes: >=200 mg/dL plus symp toms BUN 26 (H) 10 - 20 mg/dL [facility] LABOR[facility]ORY Creatinine 0.96 0.80 - 1.50 [...] or in patients with acute kidney failure. http://Copilot Labs.Fitly/DHnkdep http://Zakada/DHMCnkf Specimen Anatomical Collection Method Collection Time Receive d Time (Source) Location / / Volume Laterality Blood specimen 11/29/2017 8:22 AM 018 8:29 (specimen) EDT AM EDT Resulting Agency Comment Spec In Lab Danette Maxwell APRN CHEMISTRY ORDERABLES Performing Organization Address City/State/ZIP Code [place] [address] (ABNORMAL) pro-Brain Natriuretic Peptide (11/29/2017 8:22 AM EDT) P athologist Signature ProBNP 1,769 (H) <=125 [facility] pg/mL [facility] Specimen Anatomical Collection Method Collection Time Receive d Time (Source) Location / / Volume Laterality Blood specimen 11/29/2017 8:22 AM 018 8:29 (specimen) EDT AM EDT Resulting Agency Comment Spec In Lab Danette Maxwell APRN CHEMISTRY ORDERABLES Performing Organization Address City/State/ZIP Code Phon e Number [address] Lavender Tube HOLD (11/29/2017 8:14 AM EDT) Patholo gist Method Time Signature Lavender Hold Sample in [facility] lab. [facility] Specimen Anatomical Collection Method Collection Time Receive d Time (Source) Location / / Volume Laterality Blood specimen No Charge / 11/29/2017 8:14 AM 018 8:29 (specimen) Unknown EDT AM EDT Lovely Vicente MD HEMATOLOGY ORDERABLES Performing Organization Address City/State/ZIP Code [place] [address] documented in this encounter Visit Diagnoses Diagnosis Chronic systolic congestive heart failur e Chronic systolic heart failure ASCVD (arteriosclerotic cardiovascular d isease) Unspecified cardiovascular disease Cardiomyopathy, ischemic Other specified forms of chronic ischemi c heart disease documented in this encounter Care Teams Deburr Operator Relationship Specialty Start Date End Date Lovely Vicente MD PCP - General 04/16/[address] [place] [address] documented as of this encounter
--- OUTSIDE RECORDS SUMMARY | 2022-04-15 08:18 | XMS_ITS | Encounter Summary ---
:1945 Author Organization [place] [address] Care Team Providers Name Role Phone Lovely Vicente MD Primary Care Provider Encounter Details Date Type Department Care Team Description 10/07/2017 Laboratory Appointment Lab 3L [facility] [place] [address] Social History Tobacco Use Types Packs/Day Years [...] MD [facility] er [place], [place] [address] (Wo rk) 05/28/2022 Laboratory Appointment Lab 05/28/2022 Office Visit Cardiology Zulma Dolan MD [facility] [place] [address] Liz Poole PA [facility] [place] [address] 06/10/2022 Office Visit Dermatology Laura Scherer MD [facility] ER DR TEJA GR-DERMAT ENIDReal [facility] Amy (Wo rk) documented as of [...] Lvl 99 65 - 199 [facility] mg/dL [facility] Comment: Diabetes: >=200 mg/dL plus symp toms BUN 27 (H) 10 - 20 mg/dL [facility] Creatinine 1.07 0.80 - 1.50 [...] 15 mmol/L [facility] Calcium 8.4 (L) 8.5 - 10.5 mg/dL [facility]OR[facility]ORY Estimated GFR >60 >=60 [facility] Comment: The reported eGFR should be multiplied b y 1.2 for patients. The MDRD is not an appropriate measure o f renal function for patients with body mass extremes or in patients with acute kidney failure. http://Uromedica.Cristal Studios/DHnkdep http://Uromedica.Cristal Studios/DHMCnkf Specimen Anatomical Collection Method Collection Time Receive d Time (Source) Location / / Volume Laterality Blood specimen 10/07/2017 8:48 AM 018 8:50 (specimen) EDT AM EDT Resulting Agency Comment Spec In Lab Danette Maxwell GRADUATING MACHINE OPERATOR CHEMISTRY ORDERABLES Performing Organization Address City/[facility]/ZIP Code Phon e Number [address] (ABNORMAL) pro-Brain Natriuretic Peptide (10/07/2017 8:48 AM EDT) athologist Signature ProBNP 1,170 (H) <=125 [facility] pg/mL [facility]ORY Specimen Anatomical Collection Method Collection Time Receive d Time (Source) Location / / Volume Laterality Blood specimen 10/07/2017 8:48 AM 018 8:50 (specimen) EDT AM EDT Resulting Agency Comment Spec In Lab Danette A Hans QUINONES CHEMISTRY ORDERABLES Performing Organization Address City/State/[place] [address] documented in this encounter Visit Diagnoses Diagnosis Chronic systolic heart failure documented in this encounter Care Teams Help Aid Relationship Specialty Start Date End Date Lovely Vicente MD PCP - General 04/16/[address] [place] [address] documented as of this encounter
--- OUTSIDE RECORDS SUMMARY | 2022-04-15 08:18 | XMS_ITS | Encounter Summary ---
:1945 Author Organization [place] [address] Care Team Providers Name Role Phone Lovely Vicente MD Primary Care Provider Encounter Details Date Type Department Care Team Description 11/29/2017 Hospital Encounter Vascular Lab at Jan[facility] PAD (peripheral [facility], RVT artery [facility]) [place] [phone] Social History Tobacco Use Types Packs/Day Years [...] Dolan MD [facility] [address] [place], [place] [address] (Wo rk) 05/28/2022 Laboratory Appointment Lab 05/28/2022 Office Visit Cardiology Zulma Dolan MD [facility] [place] [address] Liz Poole PA [facility] [place] [address] 06/10/2022 Office Visit Dermatology Laura Scherer MD [facility] DR [address]MAT OLOGY [place], [place] [address] (Wo rk) documented as of [...] Department: Vascular Surgery Lab VASCUBASE Report Patient: [id number] (DON HOANG) CPT: 96895 ICD10: I72.4;I73.9 Referring Physician: DANETTE MAXWELL ?? [...] unspecified documented in this encounter Care Teams Tabulating Machine Mechanic Relationship Specialty Start Date End Date Lovely Vicente MD PCP - General 04/16/[address] [place], [place] [address]Y [facility] 1 [place] [address] documented as of this encounter
--- OUTSIDE RECORDS SUMMARY | 2022-04-15 08:18 | XMS_ITS | Encounter Summary ---
:1945 [place] [address] Care Team Providers Name Role Phone Lovely Vicente MD Primary Care Provider Encounter Details Date Type Department Care Team Description 08/15/2018 Laboratory Appointment Lab [facility]L [facility] [address] Social History Tobacco Use Types Packs/Day [...] MD [facility] er [place], [place] [address] (Wo rk) 05/28/2022 Laboratory Appointment Lab 05/28/2022 Office Visit Cardiology Zulma Dolan MD [facility] [place] [address] Liz Poole PA [facility] [place] [address] 06/10/2022 Office Visit Dermatology Lauar Scherer MD [facility] ER DR [address]JA GR[address]MAT [place], [place] 0[address] (Wo rk) documented as of this encounter Procedures Procedure Name Priority Date/Time Associated Diagnosis Comme nts PROTHROMBIN TIME Routine 08/15/2018 8:04 AM Resul ts for this EST procedure are i n the results section. documented in this encounter Results (ABNORMAL) Prothrombin Time (08/15/2018 8:04 AM EST) P athologist Signature PT 24.0 (H) 9.4 - 12.5 [facility] LABORATORY INR 2.1 [facility] LABORATORY [...] Organization Address City/State/[place] [address] documented in this encounter Visit Diagnoses Not on filedocumented in this encounter Care Teams Sheet Metal Worker Apprentice Relationship Specialty Start Date End Date Lovely Vicente MD PCP - General 04/16/[address] [place] [address] documented as of this encounter
--- OUTSIDE RECORDS SUMMARY | 2022-04-15 08:18 | XMS_ITS | Encounter Summary ---
:1945 Author Organization [facility] [place] [address] Care Team Providers Name Role Phone Lovely Vicente MD Primary Care Provider Encounter Details Date Type Department Care Team Description 09/07/2017 Office Visit Endocrinology at [facility] Maria Ines Stallings of [facility] MD [place] [address] CENTER [phone] ENDOCRINOLOGY DEPT [place], [place] [address] Social History Tobacco Use Types [...] Dolan MD [facility] er Dr [place], [place] [address] (Wo rk) 05/28/2022 Laboratory Appointment Lab 05/28/2022 Office Visit Cardiology Zulma Dolan MD [facility] [place] [address] Liz Poole PA [facility] [place] [address] 06/10/2022 Office Visit Dermatology Lauar Scherer MD [facility] ER DR [address] GR[address] [place], [place] [address] (Wo rk) documented as of this encounter Visit Diagnoses Diagnosis Hx of papillary thyroid carcinoma Personal history of malignant neoplasm o f thyroid documented in this encounter Care Teams Bed Machine Operator Relationship Specialty Start Date End Date Lovely Vicente MD PCP - General 04/16/15 [facility] [address] [place] [address] documented as of this encounter
--- OUTSIDE RECORDS SUMMARY | 2022-04-15 08:18 | XMS_ITS | Encounter Summary ---
:1945 Author Organization [facility] [place] [address] Care Team Providers Name Role Phone Lovely Vicente MD Primary Care Provider Encounter Details Date Type Department Care Team Description 08/19/2017 Hospital Encounter XRay at [facility] Martha Teague, S/P CABG x [address] [facility] [place] [address] [place] [address] RD [phone] [facility] [place], [place] [address] (Wo rk) Social History [...] Zulma Dolan MD [facility] [place], [place] [address] (Wo rk) 05/28/2022 Laboratory Appointment Lab 05/28/2022 Office Visit Cardiology Zulma Dolan MD [facility] [place] [address] Liz Poole PA [facility] [place] [address] 06/10/2022 Office Visit Dermatology Laura Scherer MD [facility] DR [address] OLOGY [place], [place] [address] (Wo rk) documented as [...] 2017 EXAMINATION: XR CHEST PA AND LATERAL (Missy's CandyIC) CLINICAL HISTORY: CABG x 3 TECHNIQUE: PA [...] status documented in this encounter Care Teams Tower Attendant Relationship Specialty Start Date End Date Lovely Vicente MD PCP - General 04/16/[address] [place], [place] [address]Y [facility] 1 [place] [address] documented as of this encounter
--- OUTSIDE RECORDS SUMMARY | 2022-04-15 08:18 | XMS_ITS | Encounter Summary ---
:1945 [place] [address] Care Team Providers Name Role Phone Lovely Vicente MD Primary Care Provider Encounter Details Date Type Department Care Team Description 11/29/2017 Hospital Encounter Radiology Library at Estefany Maxwell Pain [facility] OR[facility]IST [facility] [place] [address] CARDIOLOGY [phone] [place], [place] [address] (Wo rk) Social History Tobacco [...] MD [facility] [place], [place] [address] (Wo rk) 05/28/2022 Laboratory Appointment Lab 05/28/2022 Office Visit Cardiology Zulma Dolan MD [facility] [place] [address] Liz Poole PA [facility] [place] [address] 06/10/2022 Office Visit Dermatology Laura Scherer MD [facility] DR [address] OLOGY [place], [place] [address] (Wo rk) documented as of [...] Address City/State/ZIP Code Phon e Number [place], [place] documented in this encounter Visit Diagnoses Diagnosis Pain Generalized pain documented in this encounter Care Teams Recruiter Account Manager Relationship Specialty Start Date End Date Lovely Vicente MD PCP - General 04/16/[address] [place] [address] documented as of this encounter
--- OUTSIDE RECORDS SUMMARY | 2022-04-15 08:18 | XMS_ITS | Encounter Summary ---
:1945 Author Organization [facility] [place] [address] Care Team Providers Name Role Phone Lovely Vicente MD Primary Care Provider Reason for Visit Reason Comments Skin Check Encounter Details Date Type Department Care Team Description 07/06/2018 Office Visit Dermatology at [facility], Rigoberto Yarbrough (actinic keratosis); MD SHAY Quick III (seborrheic keratosis); [address] [facility] History of melanoma; [place] [address] Skin exam for malignant neoplasm [phone] [facility] [place], [place] [address] Social History Tobacco Use Types [...] leg - he had vascular surgery in [facility] while he lost several toes, [...] Dolan MD [facility] Dr [place], [place] [address] (Wo rk) 05/28/2022 Laboratory Appointment Lab 05/28/2022 Office Visit Cardiology Zulma Dolan MD [facility] [place] [address] Liz Poole PA [facility] [place] [address] 06/10/2022 Office Visit Dermatology Laura Scherer MD [facility] DR [address] [place]LOG[place], [place] [address] (Wo rk) documented as of this encounter Visit Diagnoses Diagnosis AK (actinic keratosis) Actinic keratosis [place] (seborrheic keratosis) Other seborrheic keratosis History of melanoma Personal history of malignant melanoma o f skin Skin exam for malignant neoplasm Screening for malignant neoplasm of the skin documented in this encounter Care Teams Mangle Feeder Relationship Specialty Start Date End Date Lovely Vicente MD PCP - General 04/16/[address] [place] [address] documented as of this encounter
--- OUTSIDE RECORDS SUMMARY | 2022-04-15 08:18 | XMS_ITS | Encounter Summary ---
:1945 Author Organization [facility] [place] [address] Care Team Providers Name Role Phone Lovely Vicente MD Primary Care Provider Encounter Details Date Type Department Care Team Description 04/18/2018 Laboratory Appointment Lab [address] [facility] [place] [id number] Social History Tobacco Use Types Packs/Day Years [...] Dolan MD [facility] [place], [place] [address] (Wo rk) 05/28/2022 Laboratory Appointment Lab 05/28/2022 Office Visit Cardiology Zulma Dolan [place] [address] Liz Poole PA [facility] [place] [address] 06/10/2022 Office Visit Dermatology Laura Scheerr MD [facility] ER DR [address] [place], [place] [address] (Wo rk) documented as [...] Signature Total Protein 7.6 6.1 - 8.0 [facility] gm/dL [facility] Albumin 4.0 3.2 - 5.2 [facility] gm/dL [facility] AST 36 0 - 39 [facility] unit/L [facility] ALT 27 0 - 55 [facility] unit/L [facility] Alk Phos 96 40 - 120 [facility] unit/L [facility] Total 0.7 0.2 - 1.3 [place] Next Safety Bilirubin mg/dL [facility] Bili, Direct 0.1 0.0 - 0.3 [facility] mg/dL [facility] Specimen Anatomical Collection Method Collection Time Receive d Time (Source) Location / / Volume Laterality Blood specimen Venous Draw / 04/18/2018 9:19 AM 2017 9:44 (specimen) Unknown EDT AM EDT Resulting Agency Comment Spec In Lab Danette Maxwell APRN CHEMISTRY ORDERABLES Performing Organization Address City/State/[place] [address] TSH (04/18/2018 9:19 AM EDT) athologist Signature TSH 1.77 0.27 - 4.20 [facility] mlU/ML [facility] Specimen Anatomical Collection Method Collection Time Receive d Time (Source) Location / / Volume Laterality Blood specimen Venous Draw / 04/18/2018 9:19 AM 2017 9:44 (specimen) Unknown EDT AM EDT Resulting Agency Comment Spec In Lab Danette Maxwell APRN CHEMISTRY ORDERABLES Performing Organization Address City/State/Z[place] [address] (ABNORMAL) Basic Metabolic Panel (non-fasting) (04/18/2018 9:19 AM EDT) athologist Signature Glucose Lvl 167 65 - 199 [facility] mg/dL [facility] [...] of body mass or the acutely ill. http://[employer]/DHMCnkf eGFR 70 >=60 mL/min/1.73 m?? [facility] Comment: The eGFR was calculated using the CKD-EP I equation. As with all creatinine based estimates of kidney function, eGFR values calculated with the CKD-EPI equation are not accurate in patients wi th acute kidney failure, extremes of body mass or the acutely ill. http://[employer]/DHnkf Specimen Anatomical Collection Method Collection Time Receive d Time (Source) Location / / Volume Laterality Blood specimen 04/18/2018 9:19 AM 018 9:34 (specimen) EDT AM EDT Resulting Agency Comment Spec In Lab Danette Maxwell APRN CHEMISTRY ORDERABLES Performing Organization Address City/[facility]/[place] [address] (ABNORMAL) pro-Brain Natriuretic Peptide (04/18/2018 9:19 AM EDT) P athologist Signature ProBNP 2,199 (H) <=125 [facility] pg[facility]mL [facility] Specimen Anatomical Collection Method Collection Time Receive d Time (Source) Location / / Volume Laterality Blood specimen 04/18/2018 9:19 AM 018 9:34 (specimen) EDT AM EDT Resulting Agency Comment Spec In Lab Danette Maxwell APRN CHEMISTRY ORDERABLES Performing Organization Address City/[facility]/[place] [address] documented in this encounter Visit Diagnoses Diagnosis Chronic systolic heart failure documented in this encounter Care Teams Senior Corporate Accountant Relationship Specialty Start Date End Date Lovely Vicente MD PCP - General 04/16/[address] [place] [address] documented as of this encounter
--- OUTSIDE RECORDS SUMMARY | 2022-04-15 08:18 | XMS_ITS | Encounter Summary ---
:1945 Author Organization [facility] [place] [address] Care Team Providers Name Role Phone Lovely Vicente MD Primary Care Provider Encounter Details Date Type Department Care Team Description 09/06/2017 Orders Only Vascular Surgery at [facility] Ninfa Clark, [facility] [place] [address] Social History Tobacco Use Types Packs/Day [...] MD [facility] [place], [place] [address] (Wo rk) 05/28/2022 Laboratory Appointment Lab 05/28/2022 Office Visit Cardiology Zulma Dolan [place] [address] Liz Poole PA [facility] [place] [address] 06/10/2022 Office Visit Dermatology Laura Scherer MD [facility] DR [address] [place], [place] [address] (Wo rk) documented as of this encounter Visit Diagnoses Not on filedocumented in this encounter Care Teams Director Of Occupational Health Relationship Specialty Start Date End Date Lovely Vicente MD PCP - General 04/16/[address] [place] [address] documented as of this encounter
--- OUTSIDE RECORDS SUMMARY | 2022-04-15 08:18 | XMS_ITS | Encounter Summary ---
:1945 Author Organization [facility] [place] [address] Care Team Providers Name Role Phone Lovely Vicente MD Primary Care Provider Encounter Details Date Type Department Care Team Description 11/29/2017 Office Visit Cardiology at [facility] Annette Maxwell Chronic systolic congestive heart failure; [facility] A, SAUSAGE MACHINE OPERATOR ASCVD (arteriosclerotic cardiovascular d isease); [facility] Cardiomyopathy, ischemic; [place], [place] PAD (peripheral artery disease) [address] CARDIOLOGY [phone] [place], [place] [address] Social History Tobacco Use [...] in this encounter Progress Notes Annette Maxwell, SAUSAGE MACHINE OPERATOR - 11/29/2017 9:20 AM EDT [...] and 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 [...] using left greater saphenous vein (done at [facility]), debridement of right foot with wound vac [...] popliteal-pedal bypass at [facility] ? Plan: 1. A review of [...] Zulma Dolan MD [facility] [place], [place] [address] (Wo rk) 05/28/2022 Laboratory Appointment Lab 05/28/2022 Office Visit Cardiology Zulma Dolan MD [facility] [place] [address] Liz Poole PA [facility] [place] [address] 06/10/2022 Office Visit Dermatology Laura Scherer MD [facility] DR [address] [place], [place] [address] (Wo rk) documented as of this encounter Results Arterial Duplex Leg, Unil (11/29/2017 10:32 AM EDT) Component Value Ref Test Analysis Performed At [facility] Range Method Time Signature VB Text Department: Vascular Surgery Lab VASCUBASE Report Patient: [id number] (GREGORY HOANG) CPT: 82256 ICD10: I72.4;I73.9 Referring Physician: ANNETTE MAXWELL ?? [...] 217 (H) 65 - 199 [facility] mg/dL [facility] - [...] or in patients with acute kidney failure. http://[employer]/DHnkdep http://sabio labs/DHMCnkf Specimen Anatomical Collection Method Collection Time Receive d Time (Source) Location / / Volume Laterality Blood specimen 11/29/2017 8:22 AM 05/07/2 018 8:29 (specimen) EDT AM EDT Resulting Agency Comment Spec In Lab Annette Maxwell SAUSAGE MACHINE OPERATOR CHEMISTRY ORDERABLES Performing Organization Address City/State/[place] [address] (ABNORMAL) pro-Brain Natriuretic Peptide (11/29/2017 8:22 AM EDT) P athologist Signature ProBNP 1,769 (H) <=125 [facility] pg/mL [facility] Specimen Anatomical Collection Method Collection Time Receive d Time (Source) Location / / Volume Laterality Blood specimen 11/29/2017 8:22 AM 018 8:29 (specimen) EDT AM EDT Resulting Agency Comment Spec In Lab Annette Maxwell SAUSAGE MACHINE OPERATOR CHEMISTRY ORDERABLES Performing Organization Address City/[facility]/[place] [address] documented in this encounter Visit Diagnoses Diagnosis Chronic systolic congestive heart failur e Chronic systolic heart failure ASCVD (arteriosclerotic cardiovascular d isease) Unspecified cardiovascular disease Cardiomyopathy, ischemic Other specified forms of chronic ischemi c heart disease PAD (peripheral artery disease) Peripheral vascular disease, unspecified documented in this encounter Care Teams Airconditioning Drafting Officer Relationship Specialty Start Date End Date Lovely Vicente MD PCP - General 04/16/[address] [place] [address] documented as of this encounter
--- OUTSIDE RECORDS SUMMARY | 2022-04-15 08:18 | XMS_ITS | Encounter Summary ---
:1945 Author Organization [facility] [place] [address] Care Team Providers Name Role Phone Lovely Vicente MD Primary Care Provider Encounter Details Date Type Department Care Team Description 08/19/2017 Office Visit Vascular Surgery at [place], PAD (peripheral artery [facility]CIAL STRIPPER disease) [facility] [address] [place] VASCULAR SURGERY [address] [place] [address] [phone] Social History Tobacco Use Types Packs/Day Years [...] Cardiology Zulma Dolan MD [facility] [place], [place] [address] (Wo rk) 05/28/2022 Laboratory Appointment Lab 05/28/2022 Office Visit Cardiology Zulma Dolan MD [facility] [place] [address] Liz Poole PA [facility] [place] [address] 06/10/2022 Office Visit Dermatology Laura Scherer MD [facility] [address] [place], [place] [address] (Wo rk) documented as of this encounter Visit Diagnoses Diagnosis PAD (peripheral artery disease) Peripheral vascular disease, unspecified documented in this encounter Care Teams Brick Chimney Supervisor Relationship Specialty Start Date End Date Lovely Vicente MD PCP - General 04/16/[address] [place] [address] documented as of this encounter
--- OUTSIDE RECORDS SUMMARY | 2022-04-15 08:18 | XMS_ITS | Encounter Summary ---
:1945 Author Organization [facility] [place] [address] Care Team Providers Name Role Phone Lovely Vicente MD Primary Care Provider Reason for Referral Diagnostic Test (Routine) - Closed Specialty Diagnoses / Procedures Referred By Contact Refer red To Contact Cardiology Diagnoses Ischemic cardiomyopathy Acute on chronic systolic congestive heart failure Danette Maxwell APRN [facility] Non-Inv Card Lab Procedures Echocardiogram Transthoracic(Leb) [facility] [place] [place] [address] [place] [address] Referral ID Status Reason Start Date Expiration Date Visits V isits Requested Authorized [id number] Closed Specialty 08/30/2017 08/30/2018 1 1 Service Requested Reason for Visit Diagnostic Test (Routine) - Closed Specialty Diagnoses / Procedures Referred By Contact Refer red To Contact Cardiology Diagnoses Ischemic cardiomyopathy Acute on chronic systolic congestive heart failure Danette Maxwell APRN [facility] Non-Inv Card Lab Procedures Echocardiogram Transthoracic(Leb) [facility] [place] [place] [address] [place] [address] Referral ID Status Reason Start Date Expiration Date Visits V isits Requested Authorized [id number] Closed Specialty 08/30/2017 08/30/2018 1 1 Service Requested Encounter Details Date Type Department Care Team Description 10/07/2017 Hospital Encounter Non-Invasive Ischemic cardiomyopathy; Cardiology Lab Barbara Craig on chronic systolic [place] [address] Social History Tobacco Use Types Packs/Day [...] Description 05/28/2022 Appointment Cardiology Zulma Dolan MD [facility] [address] [place], [place] [address] (Wo rk) 05/28/2022 Laboratory Appointment Lab 05/28/2022 Office Visit Cardiology Zulma Dolan MD [facility] [place] [address] Liz Poole PA [facility] [place] [address] 06/10/2022 Office Visit Dermatology Laura Scherer MD [facility] [address] [place], [place] [address] (Wo rk) documented as of [...] Mccollum ? (Age): 1945(72y) Med Rec#: ? [id number] ?Sex: ?M ? Site Loc: ? [facility] ?Ht / Wt: ??173(cm)/82(kg) Pt. Loc: ?Echo Lab ?BSA: ?1.96 Study Date: ?? 10/07/2017 ?Pt. Type: Outpatient Tape: ? Referring: Danette Maxwell Reading: Iker Cuevas ([id number]) Aircraft Maintenance Director: Yonathan Bocanegra Diagnosis: *ICD-10-PCS Ischemic cardiomyopathy (I2 [...] E-wave Vmax ?1.2 ?m/sec ? MV deceleration [id number] ?msec ? MV A-wave Vmax ?1 ?m/sec [...] ? Mid-Inferior ?Hypokinetic ? Mid-Inferoseptal ?Hypokinetic ? Glen-Septal ? Akinetic ? Glen-Anterior ? Hypokinetic ? Glen-Lateral ?Hypokinetic ? Glen-Inferior ? Hypokinetic ? Glen-Tip ?Akinetic ? This report has been electronically sign ed by: _ Iker Cuevas M.D. ? 10/07/2017 11:12:34 Images reviewed and interpretation verif ied [facility] Cardiac Ultrasound Laboratory Procedure Note Iker Cuevas MD - 10/07/2017Formatti ng of this note might be different from the original. Procedure: Transthoracic Echocardiogram Patient: NATALYA MCBRIDE(Age): [birth year]72y) Med Rec#: [id number] Sex: M Site Loc: [facility] Ht / Wt: 173(cm)/82(kg) Pt. Loc: Echo Lab BSA: 1.96 Study Date: 10/07/2017 Pt. Type: Outpati ent Tape: Referring: Danette Maxwell Reading: Iker Cuevas ([id number]) Aircraft Maintenance Director: Yonathan Bocanegra Diagnosis: *ICD-10-PCS Ischemic cardiomyopathy (I2 [...] MV E-wave Vmax 1.2 m/sec MV deceleration [id number] msec MV A-wave Vmax 1 m/sec MV [...] Akinetic Mid-Posterolateral Hypokinetic Mid-Inferior Hypokinetic Mid-Inferoseptal Hypokinetic Glen-Septal Akinetic Glen-Anterior Hypokinetic Glen-Lateral Hypokinetic Glen-Inferior Hypokinetic Glen-Tip Akinetic This report has been electronically sign ed by: _ Iker Cuevas M.D. 10/07/2017 11:12 :34 Images reviewed and interpretation elvie hwang [facility] Cardiac Ultrasound Laboratory Danette Maxwell [...] Routine documented in this encounter Care Teams Respiratory Director Relationship Specialty Start Date End Date Lovely Vicente MD PCP - General 04/16/[address] [place] [address] documented as of this encounter
--- OUTSIDE RECORDS SUMMARY | 2022-04-15 08:18 | XMS_ITS | Encounter Summary ---
:1945 Author Organization [facility] [place] [address] Care Team Providers Name Role Phone Lovely Vicente MD Primary Care Provider Encounter Details Date Type Department Care Team Description 09/06/2017 Telephone Vascular Surgery at [facility] Ninfa Clark, [place] [address] Social History Tobacco Use Types Packs/Day [...] Appointment Cardiology Zulma Dolan MD [facility] [place], [place] [address] (Wo rk) 05/28/2022 Laboratory Appointment Lab 05/28/2022 Office Visit Cardiology Zulma Dolan MD [facility] [place] [address] Liz Poole PA [facility] [place] [address] 06/10/2022 Office Visit Dermatology Laura Scherer MD [facility] [address] [place], [place] [address] (Wo rk) documented as of this encounter Visit Diagnoses Not on filedocumented in this encounter Care Teams Ceiling Insulation Blower Relationship Specialty Start Date End Date Lovely Vicnete MD PCP - General 04/16/[address] [place] [address] documented as of this encounter
--- OUTSIDE RECORDS SUMMARY | 2022-04-15 08:18 | XMS_ITS | Encounter Summary ---
:1945 Author Organization [facility] [place] [address] Care Team Providers Name Role Phone Lovely Vicente MD Primary Care Provider Reason for Referral Consultation (Routine) - Specialty Diagnoses / Procedures Referred By Contact Refer red To Contact [facility]aling [facility] Diagnoses Atheroembolism of foot, right Delayed surgical wound healing, subsequent encounter Aurelia Rivera PA [address] [facility] [place] [address] Referral ID Status Reason Start Date Expiration Date Visits V isits Requested Authorized [id number] Consult, 09/08/2017 03/07/2018 1 1 Test & Treat Reason for Visit Reason Comments Wound Check My foot hurts Encounter Details Date Type Department Care Team Description 09/07/2017 Office Visit Vascular Surgery at MiguelAurelia PA Atheroembolism of foot, right; [facility] [address] [facility] Delayed surgical wound healing, subseque nt encounter [facility] [place] [id number] [phone] Social History Tobacco Use Types Packs/Day Years [...] at home for VAC dressing changes from [facility]. Since his last visit his right forefoot wound VAC care has improved [facility] maintained a better seal with [...] performed by Manny Mcknight MD at [facility] MAIN OR ??? PRO AMPUTATION FOOT, TRANSMETATARSAL Right 08/09/2017 AMPUTATION, TRANSMETATARSAL (WRVU 12.71) performed by Yonathan Smith MD at [facility] MAIN OR ??? PRO CABG, ARTERIAL, SINGLE N/A 07/07/2017 @CABG, USING ARTERIAL GRAFT;SINGLE ARTERIAL GRAFT (WRVU 33.75) performed by Yuan Retana MD at [facility] MAIN OR ??? PRO CABG, ARTERY-VEIN, TWO N/A 07/07/2017 @CABG, TWO VENOUS GRAFTS & ARTERIAL GRAFT (WRVU 7.93) performed by Yuan Retana MD at [facility] MAIN OR ??? PRO COLONOSCOPY, REMV LESN, SNARE 01/16/2014 COLONOSCOPY, POLYPECTOMY, REMOVAL LESION BY SNARE performed by Nohemi Jaimes MD at [facility] ENDOSCOPY ??? PRO DRESSING CHANGE UNDER ANESTHESIA Right 08/11/2017 (MSURG) DRESSING CHANGE (FOR OTHER THAN IVAN) UNDER ANES. (WRVU 0.86) performed by Lamar Smith MD at [facility] MAIN OR ??? PRO ENDOSCOPY W/VIDEO-ASST VEIN HARVEST, CABG Right 07/07/2017 ENDOSCOPIC HARVEST VEIN(S) FOR CABG (WRVU 0.31) performed by Yuan Retana MD at [facility] MAIN OR ??? PRO THYROIDECTOMY 03/28/2013 THYROIDECTOMY, TOTAL OR COMPLETE performed by Manny Mcknight MD at [facility] OR Social Hx: Social History [...] Zulma Dolan MD [facility] [place], [place] [address] (Wo rk) 05/28/2022 Laboratory Appointment Lab 05/28/2022 Office Visit Cardiology Zulma Dolan MD [facility] [place] [address] Liz Poole PA [facility] [place] [address] 06/10/2022 Office Visit Dermatology Laura Scherer MD [facility] [address] [place], [place] [address] (Wo rk) Scheduled Referrals Name Type Priority Associated Diagnoses Order S chedule Referral to Wound Outpatient Referral Routine Atheroembolism o f foot, Ordered: Clinic right 09/08/2017 Delayed surgical wound healing, subsequent encounter documented as of this encounter Visit Diagnoses Diagnosis Atheroembolism of foot, right Delayed surgical wound healing, subseque nt encounter documented in this encounter Care Teams Copy Coordinator Relationship Specialty Start Date End Date Lovely Vicente MD PCP - General 04/16/[address] [facility] [address] [place] [address] documented as of this encounter
--- OUTSIDE RECORDS SUMMARY | 2022-04-15 08:18 | XMS_ITS | Encounter Summary ---
:1945 Author Organization [facility] [address] Care Team Providers Name Role Phone Lovely Vicente MD Primary Care Provider Encounter Details Date Type Department Care Team Description 08/15/2018 Laboratory Lab 3L [place] Chronic systoli c heart failure; Appointment [facility] ASCVD (ar teriosclerotic cardiovascular disease) [place] [address] Social History Tobacco Use Types [...] Zulma Dolan MD [facility] er [address] [place], [place] [address] (Wo rk) 05/28/2022 Laboratory Appointment Lab 05/28/2022 Office Visit Cardiology Zulma Dolan MD [facility] [place] [address] Liz Poole PA [facility] [place] [address] 06/10/2022 Office Visit Dermatology Laura Scherer MD [facility] ER [address] [place], [place] [address] (Wo rk) documented as of [...] Signature Glucose Lvl 116 65 - 199 [facility] mg/dL [facility] Comment: Diabetes: >=200 mg/dL plus symp toms BUN 21 (H) 10 - 20 mg/dL [facility] [...] - 15 mmol/L [facility] Calcium 9.0 8.5 - 10.5 mg/dL [facility] Estimated GFR 68 >=60 mL/min/1.73 m?? [facility] Comment: The eGFR was calculated using the CKD-EP I equation. As with all creatinine based estimates of kidney function, eGFR values calculated with the CKD-EPI equation are not accurate in patients wi th acute kidney failure, extremes of body mass or the acutely ill. http://Serstech/[facility] eGFR 79 >=60 mL/min/1.73 m?? [facility] Comment: The eGFR was calculated using the CKD-EP I equation. As with all creatinine based estimates of kidney function, eGFR values calculated with the CKD-EPI equation are not accurate in patients wi th acute kidney failure, extremes of body mass or the acutely ill. http://Serstech/[facility] Specimen Anatomical Collection Method Collection Time Receive d Time (Source) Location / / Volume Laterality Blood specimen 08/15/2018 8:04 AM 019 8:20 (specimen) EST AM EST Resulting Agency Comment Spec In Lab Danette Maxwell APRN CHEMISTRY ORDERABLES Performing Organization Address City/State/[place] [address] Lipid Panel (08/15/2018 8:04 AM EST) P athologist Signature Chol, Total 75 mg/dL [facility] Comment: Lower Risk: <200 mg/dL Average Risk: 200-239 mg/dL Higher Risk: >ll=267 mg/dL Triglycerides 185 mg/dL [facility] Comment: Average Risk/Lower Risk: <150 mg/dL Borderline High Risk: 150-199 mg/dL High Risk: 200-499 mg/dL Very High Risk: >ej=002 mg/dL HDL 32 mg/dL [facility] Comment: Males: ?? Higher Risk: <40 mg/dL Females: ?? HIgher Risk: <50 mg/dL LDL Cholesterol 6 mg/dL [facility] Comment: Lowest Risk: <100 mg/dL Lower Risk: 100-129 mg/dL Borderline High Risk: 130-159 mg/dL High Risk: 160-189 mg/dL Very High Risk: >ms=095 mg/dL Chol/HDL Ratio 2.3 ratio [facility] Lipid Interpretation See Note [facility] Comment: Lipid management should be guided by a p atient? s ASCVD risk, goals and preferences. ACC/AHA Guidelines recommend high intens ity statin if clinical ASCVD or LDL greater than or equal to 190 mg/dL. http://Eko Devices.com/JIQ-SGP-Fyzemdueb Adults aged 40-75 with LDL 70-189 mg/dL should have their 10 year ASCVD risk estimated with the ACC/AHA ASCVD risk es timator http://tools.acc.org/XXDST-Cdby-Dvjjpwkf r/ Statin should be discussed if risk [...] [place] [address] (ABNORMAL) pro-Brain Natriuretic Peptide (08/15/2018 8:04 AM EST) athologist Signature ProBNP 1,797 (H) <=125 [facility]mL [facility] Specimen Anatomical Collection Method Collection Time Receive d Time (Source) Location / / Volume Laterality Blood specimen 08/15/2018 8:04 AM 019 8:20 (specimen) EST AM EST Resulting Agency Comment Spec In Lab Danette Maxwell APRN CHEMISTRY ORDERABLES Performing Organization Address City/State/[place] [address] documented in this encounter Visit Diagnoses Diagnosis Chronic systolic heart failure ASCVD (arteriosclerotic cardiovascular d isease) Unspecified cardiovascular disease documented in this encounter Care Teams Railroader Relationship Specialty Start Date End Date Lovely Vicente MD PCP - General 04/16/[address] [place] [address] documented as of this encounter
--- OUTSIDE RECORDS SUMMARY | 2022-04-15 08:18 | XMS_ITS | Encounter Summary ---
:1945 Author Organization [facility] [place] [address] Care Team Providers Name Role Phone Lovely Vicente MD Primary Care Provider Reason for Visit Reason Onset Date Comments VNA Calls 08/30/2017 Encounter Details Date Type Department Care Team Description 08/30/2017 Telephone Vascular Surgery at [facility] Cora Reid RN VNA Calls [facility] [place] [address] Social History Tobacco Use Types Packs/Day [...] 08/30/2017 11:16 AM EST Caller: Alfonso at [facility] [phone] Reason for call: Changing his wound vac [...] who had been in contact with [facility]'s Wound Care Nurse who advised him [...] [facility] [address] [place], [place] [address] (Wo rk) 05/28/2022 Laboratory Appointment Lab 05/28/2022 Office Visit Cardiology Zulma Dolan MD [facility] [place] [address] Liz Poole PA [facility] [place] [address] 06/10/2022 Office Visit Dermatology Laura Scherer MD [facility] DR [address] [place], [place] [address] (Wo rk) documented as of this encounter Visit Diagnoses Not on filedocumented in this encounter Care Teams Fiberglass Machine Operator Relationship Specialty Start Date End Date Lovely Vicente MD PCP - General 04/16/[address] [place] [address] documented as of this encounter
--- OUTSIDE RECORDS SUMMARY | 2022-04-15 08:18 | XMS_ITS | Encounter Summary ---
:1945 Author Organization [facility] Address [address] [place] [address] Care Team Providers Name Role Phone Lovely Vicente MD Primary Care Provider Reason for Referral Diagnostic Test (Routine) - Specialty Diagnoses / Procedures Referred By Contact Refer red To Contact Cardiology Diagnoses Chronic systolic heart failure Danette Maxwell APRN [facility] Non-Inv Card Lab Procedures Echocardiogram Transthoracic(Leb) [facility] [place] [address] [place] [address] Referral ID Status Reason Start Date Expiration Visits Visits Date Requested Authorized [id number] Specialty 08/15/2018 08/15/2018 1 1 Service Requested Encounter Details Date Type Department Care Team Description 04/18/2018 Office Visit Cardiology at [facility] Danette Maxwell Chronic systolic heart failu re; [facility] STACIE Gomes On amiodarone therapy; [facility] Ischemic cardiomyopathy; [place], [place] DR ONOFRE (arteriosclerotic cardiovascular d isease) [phone] CARDIOLOGY [phone] [place], [place] [address] Social History Tobacco Use Types Packs/Day Years [...] in this encounter Progress Notes Danette Maxwell, JUNIOR PROJECT MANAGER - 04/18/2018 10:40 AM EDT ID and [...] 10/25/2017: right popliteal-pedal bypass at [facility] ? Plan: 1. A review [...] Zulma Dolan MD [facility] [address] [place], [place] [address] (Wo rk) 05/28/2022 Laboratory Appointment Lab 05/28/2022 Office Visit Cardiology Zulma Dolan MD [place] [address] Liz Poole PA [facility] [place] [address] 06/10/2022 Office Visit Dermatology Laura Scherer MD [facility] DR [address] [place], [place] [address] (Wo rk) documented as of this encounter Results ECHOCARDIOGRAM COMPLETE W CONTRAST (08/15/2018 7:55 AM EST) P athologist Signature EF 35 [facility] Anatomical Region Laterality Modality Other Specimen (Source) Anatomical Location Collection Method / Collectio n Time Received Time / Laterality Volume 08/15/2018 Narrative 08/15/2018 8:18 AM EST Procedure: ?Transthoracic Echocardiogram Patient: ?NATALYA Mccollum ? (Age): 1945(73y) Med Rec#: ? [id number] ?Sex: ?M ? Site Loc: ? [facility] ?Ht / Wt: ??172(cm)/81(kg) Pt. Loc: ?Echo Lab ?BSA: ?1.94 Study Date: ?? 08/15/2018 ?Pt. Type: Outpatient Tape: ? Referring: MARY ELLEN Reading: Scott Ortega ([id number]) Wireless Communications Engineer: Laura Sargent Diagnosis: *Chronic systolic (congestive) [...] E-wave Vmax ?1.2 ?m/sec ? MV deceleration wofi474.4 ? msec ? MV A-wave Vmax ?0.7 [...] ? Mid-Inferior ?Hypokinetic ? Mid-Inferoseptal ?Hypokinetic ? [place]-Septal ? Akinetic ? [place]-Anterior ? Hypokinetic ? [place]-Lateral ?Akinetic ? [place]-Inferior ? Hypokinetic ? [place]-Tip ?Akinetic ? This report has been electronically sign ed by: _ Scott Ortega M.D. ? 08/15/2018 08:17:26 Images reviewed and interpretation verif ied [facility] Cardiac Ultrasound Laboratory Procedure Note Scott Ortega MD - 08/15/2018Format ting of this note might be different from the original. Procedure: Transthoracic Echocardiogram Patient: NATALYA MCBRIDE(Age): [birth year]73y) Med Rec#: [id number] Sex: M Site Loc: [facility] Ht / Wt: 172(cm)/81(kg) Pt. Loc: Echo Lab BSA: 1.94 Study Date: 08/15/2018 Pt. Type: Outpati ent Tape: Referring: MARY ELLEN Reading: Scott Ortega ([id number]) Wireless Communications Engineer: Laura Sargent Diagnosis: *Chronic systolic (congestive) [...] MV E-wave Vmax 1.2 m/sec MV deceleration tlsh533.4 msec MV A-wave Vmax 0.7 m/sec MV [...] Akinetic Mid-Posterolateral Akinetic Mid-Inferior Hypokinetic Mid-Inferoseptal Hypokinetic [place]-Septal Akinetic [place]-Anterior Hypokinetic [place]-Lateral Akinetic [place]-Inferior Hypokinetic [place]-Tip Akinetic This report has been electronically sign ed by: _ Scott Ortega M.D. 08/15/2018 08:17: 26 Images reviewed and interpretation verif ied [facility] Cardiac Ultrasound Laboratory Danette Maxwell APRN ECHO ORDERABLES (ABNORMAL) Basic Metabolic Panel (non-fasting) (04/18/2018 9:19 AM EDT) P athologist Signature Glucose Lvl 167 65 - 199 [facility] mg/dL [facility] Comment: Diabetes: >=200 mg/dL plus [...] mmol/L [facility] Anion Gap 23 (H) 5 - 15 mmol/L [facility] Calcium 9.3 8.5 - 10.5 mg/dL [facility] Estimated GFR 61 >=60 mL/min/1.73 m?? [facility] Comment: The eGFR was calculated using the CKD-EP I equation. As with all creatinine based estimates of kidney function, eGFR values calculated with the CKD-EPI equation are not accurate in patients wi th acute kidney failure, extremes of body mass or the acutely ill. http://Woqu.com/[facility] eGFR 70 >=60 mL/min/1.73 m?? [facility] Comment: The eGFR was calculated using the CKD-EP I equation. As with all creatinine based estimates of kidney function, eGFR values calculated with the CKD-EPI equation are not accurate in patients wi th acute kidney failure, extremes of body mass or the acutely ill. http://[email or web address]/[facility] Specimen Anatomical Collection Method Collection Time Receive d Time (Source) Location / / Volume Laterality Blood specimen 04/18/2018 9:19 AM 018 9:34 (specimen) EDT AM EDT Resulting Agency Comment Spec In Lab Danette Maxwell APRN CHEMISTRY ORDERABLES Performing Organization Address City/State/ZIP [place] [address] (ABNORMAL) pro-Brain Natriuretic Peptide (04/18/2018 9:19 AM EDT) P athologist Signature ProBNP 2,199 (H) <=125 [facility] pg/mL [facility] Specimen Anatomical Collection Method Collection Time Receive d Time (Source) Location / / Volume Laterality Blood specimen 04/18/2018 9:19 AM 018 9:34 (specimen) EDT AM EDT Resulting Agency Comment Spec In Lab Danette Maxwell APRN CHEMISTRY ORDERABLES Performing Organization Address City/State/ZIP [place] [address] documented in this encounter Visit Diagnoses Diagnosis Chronic systolic heart failure On amiodarone therapy Ischemic cardiomyopathy Other specified forms of chronic ischemi c heart disease ASCVD (arteriosclerotic cardiovascular d isease) Unspecified cardiovascular disease Chronic systolic heart failure documented in this encounter Care Teams License And Permit Specialist Relationship Specialty Start Date End Date Lovely Vicente MD PCP - General 04/16/[address] [place] [address] documented as of this encounter
--- OUTSIDE RECORDS SUMMARY | 2022-04-15 08:18 | XMS_ITS | Encounter Summary ---
:1945 Author Organization [facility] [place] [address] Care Team Providers Name Role Phone Lovely Vicente MD Primary Care Provider Encounter Details Date Type Department Care Team Description 09/07/2017 Laboratory Appointment Lab 3L [facility] [place] [id number] Social History Tobacco Use Types Packs/Day Years [...] MD [facility] er [address] [place], [place] [address] (Wo rk) 05/28/2022 Laboratory Appointment Lab 05/28/2022 Office Visit Cardiology Zulma Dolan MD [facility] [place] [address] Liz Poole PA [facility] [place] [address] 06/10/2022 Office Visit Dermatology Laura Scherer MD [facility] ER DR [address] [place], [place] [address] (Wo rk) documented as of this encounter [...] PM EST) athologist Signature Thyroglobulin 1.4 <=54.9 [facility] ng/mL [facility] Comment: Thyroglobulin levels may be [...] City/State/[place] [address] TSH (09/07/2017 2:41 PM EST) athologist Signature TSH 3.93 0.27 - 4.20 [facility] Specimen Anatomical Collection Method Collection Time Receive d Time (Source) Location / / Volume Laterality Blood specimen 09/07/2017 2:41 PM 018 2:46 (specimen) EST PM EST Resulting Agency Comment Spec In Lab Luz Prescott MD CHEMISTRY ORDERABLES Performing Organization Address City/State/[place] [address] documented in this encounter Visit Diagnoses Diagnosis Hx of papillary thyroid carcinoma Personal history of malignant neoplasm o f thyroid documented in this encounter Care Teams Glassine Machine Tender Relationship Specialty Start Date End Date Lovely Vicente MD PCP - General 04/16/[address] [place] [address] documented as of this encounter
--- OUTSIDE RECORDS SUMMARY | 2022-04-15 08:18 | XMS_ITS | Encounter Summary ---
:1945 Author Organization [facility] [place] [address] Care Team Providers Name Role Phone Lovely Vicente MD Primary Care Provider Reason for Visit Reason Comments Follow-up I'm having trouble with the VAC Encounter Details Date Type Department Care Team Description 08/26/2017 Office Visit Vascular Surgery at [facility], STEPHANIE Mercado Atheroembolism of foot, right; [facility] [address] Delayed surgical wound healing, initial encounter; [facility] VASCULAR SURG YEHUDA Acute on chronic systolic congestive hea rt failure ; [place], [place] [address] [phone] Social History Tobacco Use Types Packs/Day Years [...] home and [facility] However, since discharge from [facility] he has had some difficulty with continuation [...] [facility] MAIN OR ??? PRO AMPUTATION FOOT, TRANSMETATARSAL Right 08/09/2017 AMPUTATION, TRANSMETATARSAL (WRVU 12.71) performed by Yonathan Smith MD at [facility] MAIN OR ??? PRO CABG, ARTERIAL, SINGLE N/A 07/07/2017 @CABG, USING ARTERIAL GRAFT;SINGLE ARTERIAL GRAFT (WRVU 33.75) performed by Yuan Retana MD at [facility] MAIN OR ??? PRO CABG, ARTERY-VEIN, TWO N/A 07/07/2017 @CABG, TWO VENOUS GRAFTS & ARTERIAL GRAFT (WRVU 7.93) performed by Yuan Retana MD at [facility] MAIN OR ??? PRO COLONOSCOPY, REMV LESN, SNARE 01/16/2014 COLONOSCOPY, POLYPECTOMY, REMOVAL LESION BY SNARE performed by Nohemi Jaimes MD at [facility] ENDOSCOPY ??? PRO DRESSING CHANGE UNDER ANESTHESIA Right 08/11/2017 (MSURG) DRESSING CHANGE (FOR OTHER THAN IVAN) UNDER ANES. (WRVU 0.86) performed by Lamar Smith MD at [facility] MAIN OR ??? PRO ENDOSCOPY W/VIDEO-ASST VEIN HARVEST, CABG Right 07/07/2017 ENDOSCOPIC HARVEST VEIN(S) FOR CABG (WRVU 0.31) performed by Yuan Retana MD at [facility] MAIN OR ??? PRO THYROIDECTOMY 03/28/2013 THYROIDECTOMY, TOTAL OR COMPLETE performed by Manny Mcknight MD at [facility] MAIN OR Social Hx: Social [...] Dolan MD [facility] [place], [place] [address] (Wo rk) 05/28/2022 Laboratory Appointment Lab 05/28/2022 Office Visit Cardiology Zulma Dolan MD [facility] [place] [address] Liz Poole PA [facility] [place] [address] 06/10/2022 Office Visit Dermatology Laura Scherer MD [facility] DR [address] [place], [place] [address] (Wo rk) documented as of [...] Department: Vascular Surgery Lab VASCUBASE Report Patient: [id number] (GREGORY FATIMA) CPT: 27110 ICD10: T81.89XA;I75.021 Referring Physician: ARIK CLEMENT ?? [...] Signature Glucose Lvl 98 65 - 199 [facility] mg/dL [facility] LABORATORY [...] LABORATORY Calcium 9.1 8.5 - 10.5 mg/dL [facility] Estimated GFR >60 >=60 [facility] Comment: The reported eGFR should be multiplied b y 1.2 for patients. The MDRD is not an appropriate measure o f renal function for patients with body mass extremes or in patients with acute kidney failure. http://Metastorm/DHnkdep http://Metastorm/DHMCnkf Specimen Anatomical Collection Method Collection Time Receive d Time (Source) Location / / Volume Laterality Blood specimen 08/26/2017 2:00 PM 018 2:15 (specimen) EST PM EST Resulting Agency Comment Spec In Lab Danette Maxwell MORTGAGE PROCESSOR CHEMISTRY ORDERABLES Performing Organization Address City/[facility]/ZIP Code Phon e Number [address] (ABNORMAL) pro-Brain Natriuretic Peptide (08/26/2017 2:00 PM EST) P athologist Signature ProBNP 2,373 (H) <=125 [facility] pg/mL [facility] Specimen Anatomical Collection Method Collection Time Receive d Time (Source) Location / / Volume Laterality Blood specimen 08/26/2017 2:00 PM 018 2:15 (specimen) EST PM EST Resulting Agency Comment Spec In Lab Danette A Alburnett STACIE CHEMISTRY ORDERABLES Performing Organization Address City/[facility] [place] [address] documented in this encounter Visit Diagnoses Diagnosis Atheroembolism of foot, right Delayed surgical wound healing, initial encounter Acute on chronic systolic congestive hea rt failure Acute on chronic systolic heart failure Ischemic cardiomyopathy Other specified forms of chronic ischemi c heart disease documented in this encounter Care Teams Associate Manager Relationship Specialty Start Date End Date Lovely Vicente MD PCP - General 04/16/[address] [place] [address] documented as of this encounter
--- OUTSIDE RECORDS SUMMARY | 2022-04-15 08:18 | XMS_ITS | Encounter Summary ---
:1945 Author Organization [facility] [place] [address] Care Team Providers Name Role Phone Lovely Vicente MD Primary Care Provider Encounter Details Date Type Department Care Team Description 08/15/2018 Office Visit Cardiology at [facility] Danette Maxwell Chronic systolic heart failu re; [facility] A, SOFT CRAB SHEDDER Cardiomyopathy, ischemic; [facility] ASCVD (arteriosclerotic card iovascular disease); [place], [place] Essential hypertension; [phone] CARDIOLOGY MARIA VICTORIA on CPAP [phone] [place], [place] [address] Social History Tobacco Use Types [...] in this encounter Progress Notes Danette Maxwell, SOFT CRAB SHEDDER - 08/15/2018 9:00 AM EST Images from [...] his medications today. 1. ASCVD S/p CABG, THOMSPON->LAD, Seq SVG->OM1->D1 (07/07/2017) Continue ASA, BB and [...] K+ 4.6 today 6. Post-op atrial fibrillation [id number] (CHF, HTN, DM, vascular disease, thromboembolism) [...] Dolan MD [facility] [address] [place] [address] (Wo rk) 05/28/2022 Laboratory Appointment Lab 05/28/2022 Office Visit Cardiology Zulma Dolan MD [facility] [place] [address] Liz Poole PA [facility] [place] [address] 06/10/2022 Office Visit Dermatology Laura Scherer MD [facility] ER [address] OLOGY [place], [place] [address] (Wo rk) documented as of this encounter Results Lipid Panel (08/15/2018 8:04 AM EST) athologist Signature Chol, Total 75 mg/dL [facility] Comment: Lower Risk: <200 mg/dL Average Risk: 200-239 mg/dL Higher Risk: >sh=934 mg/dL Triglycerides 185 mg/dL [facility] Comment: Average Risk/Lower Risk: <150 mg/dL Borderline High Risk: 150-199 mg/dL High Risk: 200-499 mg/dL Very High Risk: >ar=387 mg/dL HDL 32 mg/dL [facility] Comment: Males: ?? Higher Risk: <40 mg/dL Females: ?? HIgher Risk: <50 mg/dL LDL Cholesterol 6 mg/dL [facility] Comment: Lowest Risk: <100 mg/dL Lower Risk: 100-129 mg/dL Borderline High Risk: 130-159 mg/dL High Risk: 160-189 mg/dL Very High Risk: >on=772 mg/dL Chol/HDL Ratio 2.3 ratio [facility] Lipid Interpretation See Note [facility] Comment: Lipid management should be guided by a p atient? s ASCVD risk, goals and preferences. ACC/AHA Guidelines recommend high intens ity statin if clinical ASCVD or LDL greater than or equal to 190 mg/dL. http://DoYouBuzzurl.com/AMI-ABJ-Affyvoucu Adults aged 40-75 with LDL 70-189 mg/dL should have their 10 year ASCVD risk estimated with the ACC/AHA ASCVD risk es timator http://tools.acc.org/RIFOW-Ljvb-Qgdxvowb r/ Statin should be discussed if risk [...] Organization Address City/State/[place] [address] (ABNORMAL) Basic Metabolic Panel (non-fasting) (08/15/2018 8:04 AM EST) P athologist Signature Glucose Lvl 116 65 - 199 [facility] mg/dL [facility] Comment: Diabetes: >=200 mg/dL plus symp toms BUN 21 (H) 10 - 20 mg/dL [facility] Creatinine 1.08 0.80 - 1.50 [...] 15 mmol/L [facility] Calcium 9.0 8.5 - 10.5 mg/dL [facility] Estimated GFR 68 >=60 mL/min/1.73 m?? [facility] Comment: The eGFR was calculated using the CKD-EP I equation. As with all creatinine based estimates of kidney function, eGFR values calculated with the CKD-EPI equation are not accurate in patients wi th acute kidney failure, extremes of body mass or the acutely ill. http://Artvalue.com/[facility] eGFR 79 >=60 mL/min/1.73 m?? [facility] Comment: The eGFR was calculated using the CKD-EP I equation. As with all creatinine based estimates of kidney function, eGFR values calculated with the CKD-EPI equation are not accurate in patients wi th acute kidney failure, extremes of body mass or the acutely ill. http://Artvalue.com/[facility] Specimen Anatomical Collection Method Collection Time Receive d Time (Source) Location / / Volume Laterality Blood specimen 08/15/2018 8:04 AM 019 8:20 (specimen) EST AM EST Resulting Agency Comment Spec In Lab Danette Maxwell APRN CHEMISTRY ORDERABLES Performing Organization Address City/State/ZIP Code Phon e Number [address] (ABNORMAL) pro-Brain Natriuretic Peptide (08/15/2018 8:04 AM EST) P athologist Signature ProBNP 1,797 (H) <=125 [facility] Specimen Anatomical Collection Method Collection Time Receive d Time (Source) Location / / Volume Laterality Blood specimen 08/15/2018 8:04 AM 019 8:20 (specimen) EST AM EST Resulting Agency Comment Spec In Lab Danette Maxwell APRN CHEMISTRY ORDERABLES Performing Organization Address City/State/[place] [address] documented in this encounter Visit Diagnoses Diagnosis Chronic systolic heart failure Cardiomyopathy, ischemic Other specified forms of chronic ischemi c heart disease ASCVD (arteriosclerotic cardiovascular d isease) Unspecified cardiovascular disease Essential hypertension Unspecified essential hypertension MARIA VICTORIA on CPAP Obstructive sleep apnea (adult) (pediatr ic) documented in this encounter Care Teams Lens Maker Relationship Specialty Start Date End Date Lovely Vicente MD PCP - General 04/16/15 [address] [place] [address] documented as of this encounter
--- OUTSIDE RECORDS SUMMARY | 2022-04-15 08:18 | XMS_ITS | Encounter Summary ---
:1945 Author Organization [facility] [place] [address] Care Team Providers Name Role Phone Lovely Vicente MD Primary Care Provider Encounter Details Date Type Department Care Team Description 08/26/2017 Hospital Encounter Vascular Lab at [facility], Athero embolism of foot, right; [place], [place] Delayed surgi nusrat wound healing, [place] [id number] Social History Tobacco Use Types Packs/Day Years [...] Dolan MD [facility] [address] [place], [place] [address] (Wo rk) 05/28/2022 Laboratory Appointment Lab 05/28/2022 Office Visit Cardiology Zulma Dolan MD [facility] [place] [address] Liz Poole PA [facility] [place] [address] 06/10/2022 Office Visit Dermatology Laura Scherer MD [facility] [address]MAT OLOGY [place], [place] [address] (Wo rk) documented as [...] Value Ref Test Analysis Performed At [facility] Range Method Time Signature VB Text Department: Vascular Surgery Lab VASCUBASE Report Patient: [id number] (DON HOANG) CPT: 26680 ICD10: T81.89XA;I75.021 Referring Physician: ELVER BLOOM ?? [...] encounter documented in this encounter Care Teams Acute Care Physical Therapist Relationship Specialty Start Date End Date Lovely Vicente MD PCP - General 04/16/[address] [place] [address] documented as of this encounter
--- OUTSIDE RECORDS SUMMARY | 2022-04-15 08:18 | XMS_ITS | Encounter Summary ---
:1945 Author Organization [facility] [place] [address] Care Team Providers Name Role Phone Lovely Vicente MD Primary Care Provider Encounter Details Date Type Department Care Team Description 09/03/2017 Telephone Vascular Surgery at [facility] [place]inf[place] Clark, [place] [address] Social History Tobacco Use Types Packs/Day [...] help with the discomfort of the change. Environmental Service Aide told the VNA that I would ask [...] Zulma Dolan MD [facility] [place], [place] [address] (Wo rk) 05/28/2022 Laboratory Appointment Lab 05/28/2022 Office Visit Cardiology Zulma Dolan MD [facility] [place] [address] Liz Poole PA [facility] [place] [address] 06/10/2022 Office Visit Dermatology Laura Scherer MD [facility] [address] [place], [place] [address] (Wo rk) documented as of this encounter Visit Diagnoses Not on filedocumented in this encounter Care Teams Tire Repairman Relationship Specialty Start Date End Date Lovely Vicente MD PCP - General 04/16/[address] [place] [address] [address] [facility] [address] [place] [address] documented as of this encounter
--- OUTSIDE RECORDS SUMMARY | 2022-04-15 08:18 | XMS_ITS | Encounter Summary ---
:1945 Author Organization [place] [address] Care Team Providers Name Role Phone Lovely Vicente MD Primary Care Provider Encounter Details Date Type Department Care Team Description 08/25/2017 Telephone Pain Management at [facility] [place], [place] [address] Social History Tobacco Use Types Packs/Day [...] Management Center Preauthorization Request Patient: Don Fatima [id number] Fax received from [employer] denying prior authorization for Lidocaine Patches prescribed by Barbra Soares APRN. RX insurance plan: [employer] insurance telephone: [phone] Patient Diagnosis: right foot pain secondary to PVD and ischemia ? Previous medications attempted: Tylenol, Tramadol, Dilaudid Authorization/Reference number: [id number] _x_ denied, provider and patient informed _x_ appeal initiated by provider, patient informed [place] Rodrigez, RN documented in this encounter Plan of Treatment Upcoming Encounters Date Type Specialty Care Team Description 05/28/2022 Appointment Cardiology Zulma Dolan MD [facility] [place], [place] [address] (Wo rk) 05/28/2022 Laboratory Appointment Lab 05/28/2022 Office Visit Cardiology Zulma Dolan MD [facility] [place] [address] Liz Poole PA [facility] [place] [address] 06/10/2022 Office Visit Dermatology Laura Scherer MD [facility] [address] [place], [place] [address] (Wo rk) documented as of this encounter Visit Diagnoses Not on filedocumented in this encounter Care Teams Slitter Creaser Slotter Helper Relationship Specialty Start Date End Date Lovely Vicente MD PCP - General 04/16/[address] [place] [address] documented as of this encounter
--- OUTSIDE RECORDS SUMMARY | 2022-04-15 08:18 | XMS_ITS | Encounter Summary ---
:1945 Author Organization [facility] [place] [address] Care Team Providers Name Role Phone Lovely Vicente MD Primary Care Provider Encounter Details Date Type Department Care Team Description 10/05/2017 Unscheduled Cardiology at [facility] RONNIE Sin PATIENT NOT SEEN Encounter [facility] Tamiko Martinez MD [facility] [phone] CARDIOLOGY DEPT [phone] [place] [address] Social History Tobacco Use Types Packs/Day Years [...] Zulma Dolan MD [facility] [address] [place], [place] [address] (Wo rk) 05/28/2022 Laboratory Appointment Lab 05/28/2022 Office Visit Cardiology Zulma Dolan MD [facility] [place] [address] [facility] [place] [address] 06/10/2022 Office Visit Dermatology Laura Scherer MD [facility] [address] [place], [place] [address] (Wo rk) documented as of this encounter Visit Diagnoses Diagnosis DH PATIENT NOT SEEN documented in this encounter Care Teams Supervisor Tank Cleaning Relationship Specialty Start Date End Date Lovely Vicente MD PCP - General 04/16/[address] [place] [address] documented as of this encounter
--- OUTSIDE RECORDS SUMMARY | 2022-04-15 08:18 | XMS_ITS | Encounter Summary ---
:1945 Author Organization [facility] [place] [address] Care Team Providers Name Role Phone Lovely Vicente MD Primary Care Provider Reason for Referral Diagnostic Test (Routine) - Closed Specialty Diagnoses / Procedures Referred By Contact Refer red To Contact Cardiology Diagnoses Ischemic cardiomyopathy Acute on chronic systolic congestive heart failure Danette Maxwell APRN [facility] Non-Inv Card Lab Procedures Echocardiogram Transthoracic(Leb) [facility] [place] [address] [place] [address] Referral ID Status Reason Start Date Expiration Date Visits V isits Requested Authorized [id number] Closed Specialty 08/30/2017 08/30/2018 1 1 Service Requested Encounter Details Date Type Department Care Team Description 08/26/2017 Office Visit Cardiology at [facility] Danette Maxwell Ischemic cardiomyopathy; [facility] STACIE Gomes Acute on chronic systolic congestive hea rt failure ; Drive 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 [...] Cardiology Zulma Dolan MD [facility] [place], [place] [address] (Wo rk) 05/28/2022 Laboratory Appointment Lab 05/28/2022 Office Visit Cardiology Zulma Dolan MD [facility] [place] [address] Liz Poloe PA [facility] [place] [address] 06/10/2022 Office Visit Dermatology Laura Scherer MD [facility] [address] OLOG[place], [place] [address] (Wo rk) documented as of this encounter Results ECHOCARDIOGRAM COMPLETE W CONTRAST (10/07/2017 10:23 AM EDT) athologist Signature EF 45 [facility] SYSTEM Anatomical Region Laterality Modality Other Specimen (Source) Anatomical Location Collection Method / Collectio n Time Received Time / Laterality Volume 10/07/2017 Narrative 10/07/2017 11:13 AM EDT Procedure: ?Transthoracic Echocardiogram Patient: ?NATALYA Mccollum ? (Age): 1945(72y) Med Rec#: ? [id number] ?Sex: ?M ? Site Loc: ? [facility] ?Ht / Wt: ??173(cm)/82(kg) Pt. Loc: ?Echo Lab ?BSA: ?1.96 Study Date: ?? 10/07/2017 ?Pt. Type: Outpatient Tape: ? Referring: Danette Maxwell Reading: Iker Cuevas ([id number]) Optical Coating Technician: Yonathan Bocanegra Diagnosis: *ICD-10-PCS Ischemic cardiomyopathy [...] E-wave Vmax ?1.2 ?m/sec ? MV deceleration [id number] ?msec ? MV A-wave Vmax ?1 ?m/sec [...] ? Mid-Inferior ?Hypokinetic ? Mid-Inferoseptal ?Hypokinetic ? [place]-Septal ? Akinetic ? [place]-Anterior ? Hypokinetic ? [place]-Lateral ?Hypokinetic ? [place]-Inferior ? Hypokinetic ? [place]-Tip ?Akinetic ? This report has been electronically sign ed by: _ Iker Cuevas M.D. ? 10/07/2017 11:12:34 Images reviewed and interpretation [facility] Cardiac Ultrasound Laboratory Procedure Note Iker Cuevas MD - 10/07/2017Formatti ng of this note might be different from the original. Procedure: Transthoracic Echocardiogram Patient: NATALYA Mccollum (Age): [birth year]72y) Med Rec#: [id number] Sex: M Site Loc: [facility] Ht / Wt: 173(cm)/82(kg) Pt. Loc: Echo Lab BSA: 1.96 Study Date: 10/07/2017 Pt. Type: Outpati ent Tape: Referring: Danette Maxwell Reading: Iker Cuevas ([id number]) Optical Coating Technician: Yonathan Bocanegra Diagnosis: *ICD-10-PCS Ischemic cardiomyopathy [...] MV E-wave Vmax 1.2 m/sec MV deceleration kgds701 msec MV A-wave Vmax 1 m/sec MV [...] Akinetic Mid-Posterolateral Hypokinetic Mid-Inferior Hypokinetic Mid-Inferoseptal Hypokinetic [place]-Septal Akinetic [place]-Anterior Hypokinetic [place]-Lateral Hypokinetic [place]-Inferior Hypokinetic [place]-Tip Akinetic This report has been electronically sign ed by: _ Iker Cuevas M.D. 10/07/2017 11:12 :34 Images reviewed and interpretation [facility] Cardiac Ultrasound Laboratory Danette Maxwell APRN ECHO ORDERABLES Basic Metabolic Panel (non-fasting) (08/26/2017 2:00 PM EST) P athologist Signature Glucose Lvl 98 65 - 199 [facility] mg/dL [facility] Comment: Diabetes: [...] or in patients with acute kidney failure. http://Globel Direct/DHnkdep http://Globel Direct/DHMCnkf Specimen Anatomical Collection Method Collection Time Receive d Time (Source) Location / / Volume Laterality Blood specimen 08/26/2017 2:00 PM 018 2:15 (specimen) EST PM EST Resulting Agency Comment Spec In Lab Danette Maxwell APRN CHEMISTRY ORDERABLES Performing Organization Address City/State/ZIP Code Phon e Number [address] (ABNORMAL) pro-Brain Natriuretic Peptide (08/26/2017 2:00 PM EST) P athologist Signature ProBNP 2,373 (H) <=125 [facility] RYAN pg/mL [facility] Specimen Anatomical Collection Method Collection Time Receive d Time (Source) Location / / Volume Laterality Blood specimen 08/26/2017 2:00 PM 018 2:15 (specimen) EST PM EST Resulting Agency Comment Spec In Lab Danette Maxwell APRN CHEMISTRY ORDERABLES Performing Organization Address City/State/[place] [address] documented in this encounter [...] failure documented in this encounter Care Teams Ota Relationship Specialty Start Date End Date Lovely Vicente MD PCP - General 04/16/15 [address] [place] [address] documented as of this encounter
--- OUTSIDE RECORDS SUMMARY | 2022-04-15 08:18 | XMS_ITS | Encounter Summary ---
:1945 Author Organization [facility] [place] [address] Care Team Providers Name Role Phone Lovely Vicente MD Primary Care Provider Reason for Visit Reason Comments Follow-up Skin Check Encounter Details Date Type Department Care Team Description 01/06/2018 Office Visit Dermatology at [facility]; Abdelrahman HOOPER MD History of melanoma; [address] [facility] [place] [address] [facility] [place], [place] [address] Social History Tobacco [...] Dolan MD [facility] [address] [place], [place] [address] (Wo rk) 05/28/2022 Laboratory Appointment Lab 05/28/2022 Office Visit Cardiology Zulma Dolan [place] [address] Liz Poole PA [facility] [place] [address] 06/10/2022 Office Visit Dermatology Laura Scherer MD [facility] [address] [place], [place] [address] (Wo rk) documented as of this encounter Visit Diagnoses Diagnosis Multiple nevi Benign neoplasm of skin, site unspecifie d History of melanoma Personal history of malignant melanoma o f skin Seborrheic keratosis Other seborrheic keratosis documented in this encounter Care Teams Electric Motor Repair Supervisor Relationship Specialty Start Date End Date Lovely Vicente MD PCP - General 04/16/[address] [place] [address] documented as of this encounter
--- OUTSIDE RECORDS SUMMARY | 2022-04-15 08:18 | XMS_ITS | Encounter Summary ---
:1945 Author Organization [facility] [place] [address] Care Team Providers Name Role Phone Lovely Vicente MD Primary Care Provider Reason for Visit Reason Onset Date Comments Follow-up 07/13/2018 amiodarone discontin ued Encounter Details Date Type Department Care Team Description 07/13/2018 Telephone Cardiology at [facility] Martha Comer, Follow-up (amiodarone [facility] RN discontin ued) [place] [address] Social History Tobacco Use Types Packs/Day [...] RN - 07/13/2018 8:57 AM EST Per SHEET METAL WORK FURNACE INSTALLER Hans call placed to the home number for the pt. confirmed that the pt is still taking the amiodarone. Pt is to stop the amiodarone. Pt taking it for post op a-fib, therapy was supposed to be for 30 days. Message given to his . She will give him the message and will have him call with any questions. Call placed to the [facility] pharmacy in [place] to discontinue it there as well. Med list updated. documented in this encounter Plan of Treatment Upcoming Encounters Date Type Specialty Care Team Description 05/28/2022 Appointment Cardiology Zulma Dolan MD [facility] [address] [place], [place] [address] (Wo rk) 05/28/2022 Laboratory Appointment Lab 05/28/2022 Office Visit Cardiology Zulma Dolan MD [facility] [place] [address] Liz Poole PA [facility] [place] [address] 06/10/2022 Office Visit Dermatology Laura Scherer MD [facility] [address] [place], [place] [address] (Wo rk) documented as of this encounter Visit Diagnoses Not on filedocumented in this encounter Care Teams Upsetter Setter Up Relationship Specialty Start Date End Date Lovely Vicente MD PCP - General 04/16/[address] [place] [address] documented as of this encounter
--- OUTSIDE RECORDS SUMMARY | 2022-04-15 08:18 | XMS_ITS | Encounter Summary ---
:1945 Author Organization [facility] [place] [address] Care Team Providers Name Role Phone Lovely Vicente MD Primary Care Provider Reason for Visit Reason Onset Date Comments Other 11/11/2017 Please call [facility] Encounter Details Date Type Department Care Team Description 11/11/2017 Telephone Cardiology at [facility] [place] Danette Maxwell, Other (Please call [facility] [address] [place] [address] CARDIOLOGY [place], [place] [address] (Wo rk) Social History Tobacco [...] Dolan MD [facility] [address] [place], [place] [address] (Wo rk) 05/28/2022 Laboratory Appointment Lab 05/28/2022 Office Visit Cardiology Zulma Dolan MD [facility] [place] [address] Liz Poole PA [facility] [place] [address] 06/10/2022 Office Visit Dermatology Laura Scherer MD [facility] [address] [place], [place] [address] (Wo rk) documented as of this encounter Visit Diagnoses Not on filedocumented in this encounter Care Teams Battery Inspector Relationship Specialty Start Date End Date Lovely Vicente MD PCP - General 04/16/15 [facility] [address] [place] [address] documented as of this encounter
--- OUTSIDE RECORDS SUMMARY | 2022-04-15 08:18 | XMS_ITS | Encounter Summary ---
:1945 Author Organization [place] [address] Care Team Providers Name Role Phone Lovely Vicente MD Primary Care Provider Encounter Details Date Type Department Care Team Description 09/16/2017 Hospital [place] [address] Social History Tobacco Use Types Packs/Day [...] MD [facility] [place], [place] [address] (Wo rk) 05/28/2022 Laboratory Appointment Lab 05/28/2022 Office Visit Cardiology Zulma Dolan MD [facility] [place] [address] Liz Poole PA [facility] [place] [address] 06/10/2022 Office Visit Dermatology Laura Scherer MD [facility] [address] OLOGY [place], [place] [...] Component Value Ref Test Analysis Performed At [facility] Method Time Signature Surgical [id number] ? Location: [facility] Pathology [place] Report The signing pathologist has (i) examined [...] Henrique Flower Verified: ??09/24/2017 ?Pathologist Performed at: ??-[facility] Dept. of Pathology, [place], [place] CLINICAL INFORMATION Specimen Submitted: A - [...] City/State/[place] [address] documented in this encounter Visit Diagnoses Not on filedocumented in this encounter Care Teams Dye Range Operator Relationship Specialty Start Date End Date Lovely Vicente MD PCP - General 04/16/[address] [place] [address] documented as of this encounter
--- OUTSIDE RECORDS SUMMARY | 2022-04-15 08:19 | XMS_ITS | Encounter Summary ---
:1945 [place] [address] Care Team Providers Name Role Phone Lovely Vicente MD Primary Care Provider Reason for Visit Auth/Cert Specialty Diagnoses / Procedures Referred By Contact Refer red To Contact Diagnoses Critical lower limb ischemia CELLULITIS RT FOOT Procedures EMERGENCY Referral ID Status Reason Start Date Expiration Date Visits Requ ested Visits Authorized [id number] 1 1 Encounter Details Date Type Department Care Team Description 08/06/2017 - Hospital Encounter 5 Yonathan Oneill lower limb ischemia; 08/16/2017 Su Flores MD Ischemic foot Hospital [facility] [address] [place] [phone] Social History Tobacco Use Types Packs/Day Years [...] 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 Patient [...] Dorsalis Pedis (Ankle) Artery ?132 ? 0.94 ??Elmore-Biphasic ? Posterior Tibial (Ankle) Artery ??154 ? 1.10 ??Elmore-Biphasic ? Fourth Toe ? 67 ?0.48 ?? [...] For any problems or questions please call [phone] ZELDA Smith, engine pilot Nurse Clinician For issues on weeknights after 5pm and weekends please call [phone] and ask for the Vascular Fellow stonecutter hand. General Instructions None Future Appointments and Orders Future Appointments Provider Department Dept Phone 08/26/2017 4:00 PM Aurelia Rivera PA Vascular Surgery at [place] [phone] 09/07/2017 3:00 PM LAB, THREE L Lab 3L [facility] [phone] 09/07/2017 4:00 PM Luz Prescott MD Endocrinology at [place] [phone] 09/09/2017 8:00 AM Barbra Soares APRN Pain Management at [place] [phone] Please bring a list of your current [...] For any problems or questions please call [phone] ZELDA Smith, engine pilot Nurse Clinician For issues on weeknights after 5pm and weekends please call [phone] and ask for the Vascular Fellow stonecutter hand. documented in this encounter Medications at Time [...] Discharge Note Patient Destination: [facility] ([facility]) [address] [place] [address] Transportation: with (at bedside) Time of Discharge: by 12 noon Level of Care: swing Patient Aware: yes Family Notified: yes Md to call report to: Yissel Quintero INTERCHANGE AGENT already called RN to call report to: [phone] Shirin Wolf Office of Care Management Pager [phone] Shirin Wolf RN - 08/16/2017 10:50 AM EST [facility] has offered pt swing bed. Pt and accept bed. will transport via car. INTERCHANGE AGENT Yissel Quintero aware; d/c paperwork will be completed by 12 noon. [facility] requests pt arrival by 1400 today; INTERCHANGE AGENT, RN, and family aware. INTERCHANGE AGENT called [facility] and was told that they prefer pt to arrive with wound vac dressing applied but clamped. INTERCHANGE AGENT applied new wound vac dressing. RN has [facility] number to call report. PASSR completed; INTERCHANGE AGENT paged to request provider signature in highlighted space. Indigo from [facility] notified via email that home wound vac now cancelled; [facility] has picked up from room and order cancelled. Packet started and provided to business unit controller. Medicare important message explained to patient, patient signed. Copy provided to patient and signature page to OCM for inclusion in pt EMR. Radha Georges - 08/16/2017 10:34 AM EST Office of Care Management/Tactical Air Control Party Patient Name: Gregory Hoang : 1945 Patient has been offered a swing bed at [facility]. The patient will be transported by private transportation. No MD to MD report necessary Please call Nursing Report to [phone], ask for ancillary services manager. Info to accompany patient: Narcotic Prescriptions Copies of Medication Administration Records and IV sheets for past 10 days. Plan: Tactical Air Control Party will be available to the patient and Translator-RN and/or Freedom Of Information Officer for further assistance. Patient will be discharged to: [place] [phone] Radha Powers, Tactical Air Control Party Mira Black, VAMSI - 08/15/2017 10:05 PM EST [address] Flores to ask if he wanted to hold metoprolol dose. BP 95/58. OK to hold this dose Courtney Brito - 08/15/2017 3:26 PM EST Office of Care Management(OCM)/Tactical Air Control Party(RS)/ D/C Planning re : Patient is medically [...] status. 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 Vac in [...] patient's referral to: [facility] PHONE: [phone] FAX: [phone] CM spoke with RS who said that [...] rehab. Await recommendations from PT. Covering pager #[phone]. 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 Property Utilization Officer Kaitlin Saha, RN Pager #[phone] Payam Rosales - 08/13/2017 2:37 PM EST Scheduling Clerk Encounter Note Patient Name: Gregory Hoang : [id number] MR#: [id number] Admit Date: 08/06/2017 1:41 PM Hospital Day 7 days Narrative: Visited to introduce and assess acceptance of Scheduling Clerk services. Pt was awake, alert, oriented and in chair and family was there. Assessment:Patient coping positively with stresses of illness/hospitalization at this time. Pt says that he is hoping to get better and his family was there. Pt says that he has family care and supportand taking one day at time. Intervention and Outcome: Provided emotional support and encouraging presence. 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 A letter describing our affiliations was reviewed with them and theywere educated about their right to choose where referrals are placed. Patient requests referral to [facility] App. PHONE: [phone] FAX: [phone]. And Home NPWT (Negative Pressure Wound Therapy) aka wound vac device made available to pt. Serial # confirmed. [facility]ed [facility] Proof of Delivery/Assignment of Benefits Statement(POD/AOB) Form w patient or authorized agent signing on behalf of patient. Copy of POD/AOB provided to pt and other copy faxed to [employer] @ fax# [phone] Expected date of discharge: 08/12/2017. 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 Address: [address] [place] [address] [place] [address] (home) Mobile: Telephone Information: Referring Provider: No [...] by Manny Mcknight MD at [facility] MAIN OR ??? PRO CABG, ARTERIAL, SINGLE N/A 07/07/2017 @CABG, USING ARTERIAL GRAFT;SINGLE ARTERIAL GRAFT (WRVU 33.75) performed by Yuan Retana MD at [facility] MAIN OR ??? PRO CABG, ARTERY-VEIN, TWO N/A 07/07/2017 @CABG, TWO VENOUS GRAFTS & ARTERIAL GRAFT (WRVU 7.93) performed by Yuan Retana MD at [facility] MAIN OR ??? PRO COLONOSCOPY, REMV LESN, SNARE 01/16/2014 COLONOSCOPY, POLYPECTOMY, REMOVAL LESION BY SNARE performed by Nohemi Jaimes MD at [facility] ENDOSCOPY ??? PRO ENDOSCOPY W/VIDEO-ASST VEIN HARVEST, CABG Right 07/07/2017 ENDOSCOPIC HARVEST VEIN(S) FOR CABG (WRVU 0.31) performed by Yuan Retana MD at [facility] MAIN OR ??? PRO THYROIDECTOMY 03/28/2013 THYROIDECTOMY, TOTAL OR COMPLETE performed by Manny Mcknight MD at [facility] MAIN OR Date/Procedure Med's given/comments 08/10/17 RLE angio with multiple ACADEMIC AFFAIRS DIRECTOR to R posterior tibial artery Fentanyl [...] times daily for 10 days. 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 Heparin gtt continues to run. [...] : 1945 AGE 72 y.o. Address: [address] [place] [address] [place] [address] (home) Mobile: Telephone Information: Referring Provider: No [...] by Manny Mcknight MD at [facility] MAIN OR ??? PRO CABG, ARTERIAL, SINGLE N/A 07/07/2017 @CABG, USING ARTERIAL GRAFT;SINGLE ARTERIAL GRAFT (WRVU 33.75) performed by Yuan Retana MD at [facility] MAIN OR ??? PRO CABG, ARTERY-VEIN, TWO N/A 07/07/2017 @CABG, TWO VENOUS GRAFTS & ARTERIAL GRAFT (WRVU 7.93) performed by Yuan Retana MD at [facility] MAIN OR ??? PRO COLONOSCOPY, REMV LESN, SNARE 01/16/2014 COLONOSCOPY, POLYPECTOMY, REMOVAL LESION BY SNARE performed by Nohemi Jaimes MD at [facility] ENDOSCOPY ??? PRO ENDOSCOPY W/VIDEO-ASST VEIN HARVEST, CABG Right 07/07/2017 ENDOSCOPIC HARVEST VEIN(S) FOR CABG (WRVU 0.31) performed by Yuan Retana MD at [facility] MAIN OR ??? 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 Vascular resident stonecutter hand and will forward result to the team prior to rounds. 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 Patient [...] by Manny Mcknight MD at [facility] MAIN OR ??? PRO CABG, ARTERIAL, SINGLE N/A 07/07/2017 @CABG, USING ARTERIAL GRAFT;SINGLE ARTERIAL GRAFT (WRVU 33.75) performed by Yuan Retana MD at [facility] MAIN OR ??? PRO CABG, ARTERY-VEIN, TWO N/A 07/07/2017 @CABG, TWO VENOUS GRAFTS & ARTERIAL GRAFT (WRVU 7.93) performed by Yuan Retana MD at [facility] MAIN OR ??? PRO COLONOSCOPY, REMV LESN, SNARE 01/16/2014 COLONOSCOPY, POLYPECTOMY, REMOVAL LESION BY SNARE performed by Nohemi Jaimes MD at [facility] ENDOSCOPY ??? PRO ENDOSCOPY W/VIDEO-ASST VEIN HARVEST, CABG Right 07/07/2017 ENDOSCOPIC HARVEST VEIN(S) FOR CABG (WRVU 0.31) performed by Yuan Retana MD at [facility] MAIN OR ??? PRO THYROIDECTOMY 03/28/2013 THYROIDECTOMY, TOTAL OR COMPLETE performed by Manny Mcknight MD at [facility] MAIN OR Functional Status/Social Hx: Quit [...] left blue toes with CTA showing [employer] pseudoaneurysm (now thrombosed) and occluded ATs bilaterally. [...] 2.5x80 5. Completion RLE angiogram 6. L [employer] angiogram 7. 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 - L [employer] angriogram demonstrated: High femoral bifurcation over the proximal half of the femoral head. L [employer] access in the distal L [employer]. - Closure device: Mynx Technical Procedure: The [...] for a 45cm 5F Destination. V18 and Delta and QuickCross catheters were used to select [...] 5F. A stationed picture of the L [employer] was performed as the patient was noted to have a very high bifurcation. Access appeared in the distal R [employer]. Closure and sheath removal was performed with [...] PM EST 1440 report called to [facility] nurse Tessa AGUSTIN documented in this encounter [...] sit/sit to supine -- Bed Mobility Goal, Faulk Level independent -- Bed Mobility Goal, Date [...] days -- Transfer Training Goal, Activity Type cmm-uw-xgmyp/hfrac-vy-ilt -- Transfer Train Goal, Faulk Level conditional independence -- Transfer Train Goal, [...] call caebllo within reach, Hourly rounding by RN/TELEPHONE CLEANER. Bed alarm / Chair alarm. Patient-specific fall [...] MD - 08/15/2017 6:28 PM EST [facility] [place] Note Patient Name: Gregory Hoang : [id number] MR#: [id number] Case Date: 08/09/2017 Surgeon: Surgeon(s) and Role: [...] 2.5x80 5. Completion RLE angiogram 6. L [employer] angiogram 7. Mynx closure Precautions/Restrictions: fall, sternal [...] other (see comments) (or swing bed) Pager: [phone] BASSAM ELIAS, PT 08/14/2017 Inpatient Physical Therapy [...] to Achieve by discharge Gait Training Goal, Faulk Level conditional independence;set up required Gait Training [...] choices are: 1- [facility] PHONE: [phone] FAX: [phone] 2- [facility] ([facility]) [address] [place] [address] 3- [facility]) [address] [place] [address] I have discussed Medicare/Private Insurance [...] RS/CM on Wednesday to follow-up. Covering pager #[phone] for today. Plan of Care - Henrique [...] with additional findings of pseudoaneurysm on R [employer] and bilateral anterior tibial artery occlusions. Was [...] an outpatient once discharged. Have patient call [phone] to set up an appointment. Follow-up: Dermatology will sign-off for now. Please do not hesitate to contact us if you have any questions orconcerns. Impression and Recommendations discussed with primary team on 08/13/2017. Karo Henderson MD Resident in Dermatology Section of Dermatology, Department of Surgery [facility] Pager [phone] Patient seen and evaluated with staff Sugar Refinery Supervisor: Halima Cordero MD Section of Dermatology [facility] [...] 2.5x80 5. Completion RLE angiogram 6. L [employer] angiogram 7. Mynx closure Active Non-Hospital Problems [...] home with home health ([facility] PT[facility]OT) Pager: [phone] YASIR TELLO OT 08/12/2017 Occupational Therapy Rehabilitation [...] 2.5x80 5. Completion RLE angiogram 6. L [employer] angiogram 7. Mynx closure Past Medical History: [...] with 24/7 assistance and maximal services) Pager: [phone] NICHOLAS MORA, PT 08/12/2017 Physical Therapy Rehabilitation [...] sit/sit to supine -- Bed Mobility Goal, Faulk Level independent -- Bed Mobility Goal, Outcome Achieved -- goal ongoing Goal: Gait Training Goal Stand Alone Therapy Goal Outcome: Ongoing (Interventions Implemented as Appropriate) 08/11/17 1310 08/12/17 1510 Gait Training Goal Gait Training Goal, Date Established 08/11/17 -- Gait Training Goal, Time to Achieve 5 - 7 days -- Gait Training Goal, Faulk Level conditional independence -- Gait Training Goal, [...] days -- Transfer Training Goal, Activity Type tex-af-zceht/lhnny-qy-roh -- Transfer Train Goal, Faulk Level conditional independence -- Transfer Training Goal, [...] MD - 08/11/2017 2:52 PM EST [facility] [place]ative Note Patient Name: Gregory Hoang : [id number] MR#: [id number] Case Date: 08/11/2017 Surgeon: Surgeon(s) and Role: [...] 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 Completion RLE angiogram 6. L [employer] angiogram 7. Mynx closure He is very [...] Anticipated Discharge Disposition: inpatient rehabilitation facility Pager: [phone] LAWRENCE GONZALEZ, PT 08/11/2017 Physical Therapy Rehabilitation [...] to sit/sit to supine Bed Mobility Goal, Faulk Level independent Goal: Gait Training Goal Stand Alone Therapy Goal Outcome: Ongoing (Interventions Implemented as Appropriate) 08/11/17 1310 Gait Training Goal Gait Training Goal, Date Established 08/11/17 Gait Training Goal, Time to Achieve 5 - 7 days Gait Training Goal, Faulk Level conditional independence Gait Training Goal, Assist [...] 7 days Transfer Training Goal, Activity Type vgz-nc-sjmhi/eqwnk-fj-clj Transfer Train Goal, Faulk Level conditional independence Plan of [facility] Annetta Sandoval RN - 08/11/2017 [...] call cabello within reach, Hourly rounding by RN/TELEPHONE CLEANER. Bed alarm / Chair alarm. ? Patient-specific [...] Past 30 Days: [facility] 07/20/2017 Anticipated Length Of Stay (If known): Expected Length of Hospitalization: 5-7 days2-3 days Current Decision-Making Capacity: Alert and oriented x 4 Advance Care Planning: on file Kisha Hoang [facility] [phone] Current Coping/Education/Information Needs: pt and spouse state [...] Health/Prescription Coverage: Primary Insurance: MEDICARE Secondary Insurance: [facility] Prescription Coverage: See above Preferred Pharmacy: [address] [id number] Other: N/A Primary Care Provider: Lovely Vicente MD [phone] Patient/Caregiver Goals of Treatment: Patient plans to return home when medically ready Potential Needs for Transition of Care: Rehab/SNF: N/A Home Health: [facility]. DME: pt has a cane and walker [...] of care planning. Kaitlin Saha RN Pager: [phone] Plan of Care - Melba Jaramillo RN [...] Overview Goal: Plan of Care Review 08/08/17 4334 Coping/Psychosocial Plan Of Care Reviewed With patient [...] call cabello within reach, Hourly rounding by RN/TELEPHONE CLEANER. Bed alarm / Chair alarm. Patient-specific fall [...] at bedside and MD TEAM Carrying pager [phone] contacted (via Radio page) and notified of [...] MD [facility] [place], [place] [address] (Wo rk) 05/28/2022 Laboratory Appointment Lab 05/28/2022 Office Visit Cardiology Zulma Dolan [place] [facility] [place] [address] Liz Poole PA [facility] [place] [address] 06/10/2022 Office Visit Dermatology Laura Scherer MD [facility] [address] [facility] [place], [place] [address] (Wo rk) documented as of [...] POC Glucose 160 65 - 199 [facility] mg/dL [facility] Comment: Supplemental ranges: <140 mg/dL before meals <180 mg/dL all other times of the day Specimen Anatomical Collection Method Collection Time Receive d Time (Source) Location / / Volume Laterality Blood specimen 08/16/2017 7:28 AM 018 7:28 (specimen) EST AM EST Yonathan Smith MD POINT OF CARE TEST ORDERABLE S Performing Organization Address City/State/[place] [address] (ABNORMAL) Differential, Automated (08/16/2017 5:08 AM EST) [facility] Method Time Signature Neutrophils % 73.9 % [facility] Neutr Abs (ANC) 5.37 1.70 - [facility] 6.[address] [facility] x10(3)/[facility] LABORATORY Lymphocytes % 10.1 % [facility] Lymphocytes Abs 0.7 (L) 0.9 - 3.2 [facility] x10(3)/[facility] LABORATORY Monocytes % 10.1 % [facility] Monocyte Abs 0.7 0.3 - 0.9 [facility] x10(3)/[facility] LABORATORY Eosinophils % 5.1 % [facility] Eosinophils Abs 0.4 0.0 - 0.4 [facility] x10(3)/[facility] LABORATORY Basophils % 0.4 % [facility] Basophils Abs 0.0 0.0 - 0.1 [facility] x10(3)/[facility] LABORATORY Immature Gran % 0.40 % [facility] Comment: Immature granulocytes(IG's)percentage an d absolute count will include metamyelocytes, myelocytes, and promyelo cytes. Blood smears from CBCs yielding IG's will be scanned manually for concor dance. If this scan disagrees with the automated IG or if promyelocytes are not ed, a manual differential will be performed. Melsia Gran Abs 0.03 0.00 - 0.04 x10(3)/[facility] LABOR[facility] Specimen Anatomical Collection Method Collection Time Receive d Time (Source) Location / / Volume Laterality Blood specimen 08/16/2017 5:08 AM 018 5:20 (specimen) EST AM EST Resulting Agency Comment Spec In Lab Yonathan Smith MD HEMATOLOGY ORDERABLES Performing Organization Address City/State/[place] [address] (ABNORMAL) Hemogram (08/16/2017 5:08 AM EST) Analysis Performed At Patho logist Time Signature WBC 7.3 4.0 - 9.5 [facility] x10(3)/[facility] LABORATORY RBC 3.36 (L) 4.58 - [facility] SU 5.[address] [facility] x10(6)/[facility] LABORATORY Hemoglobin 9.7 (L) 13.7 - [facility] gm/dL [facility] Hematocrit 30.3 (L) 40.5 - [facility] 48.5 % [facility] MCV 90.2 82.9 - [facility] 93.1 [facility] LABORAT[facility] MCH 28.9 27.5 - [facility] 32.1 pg [facility] MCHC 32.0 32.0 - [facility] 35.7 gm/dL [facility] Platelets 282 145 - 357 [facility] x10(3)/[facility] LABORATORY RDWSD 53.9 (H) 36.0 - [facility] 45.0 [facility] LABORATORY RDWCV 16.5 (H) 11.4 - [facility] SU 13.8 % [facility] MPV 9.0 7.6 - 12.9 [facility] LABORATORY nRBC % Auto 0.0 % [facility] nRBC Abs Auto 0.000 0.000 - [facility] SU 0.[address] [facility] x10(3)/[facility] LABORATORY Specimen Anatomical Collection Method Collection Time Receive d Time (Source) Location / / Volume Laterality Blood specimen 08/16/2017 5:08 AM 018 5:20 (specimen) EST AM EST Resulting Agency Comment Spec In Lab Yonathan Smith MD HEMATOLOGY ORDERABLES Performing Organization Address City/State/[place] [address] (ABNORMAL) Basic Metabolic Panel (non-fasting) (08/16/2017 5:08 AM EST) P athologist Signature Glucose Lvl 141 65 - 199 [facility] mg/dL [facility] Comment: [...] CENTER LABORATORY Estimated GFR 57 (L) >=60 [facility] Comment: The reported eGFR should be multiplied b y 1.2 for patients. The MDRD is not an appropriate measure o f renal function for patients with body mass extremes or in patients with acute kidney failure. http://AMVONET/DHnkdep http://AMVONET/DHMCnkf Specimen Anatomical Collection Method Collection Time Receive d Time (Source) Location / / Volume Laterality Blood specimen 08/16/2017 5:08 AM 018 5:20 (specimen) EST AM EST Resulting Agency Comment Spec In Lab Yonathan Smith MD CHEMISTRY ORDERABLES Performing Organization Address City/State/[place] [address] (ABNORMAL) Prothrombin Time (08/16/2017 5:08 AM EST) athologist Signature PT 25.2 (H) 11.8 - 14.0 [facility] LABORATORY INR 2.3 (H) 0.9 [...] Address City/State/ZIP Code Phon e Number [address] POCT Glucose (08/16/2017 4:09 AM EST) athologist Signature POC Glucose 147 65 - 199 [facility] Comment: Supplemental ranges: <140 mg/dL before meals <180 mg/dL all other times of the day Specimen Anatomical Collection Method Collection Time Receive d Time (Source) Location / / Volume Laterality Blood specimen 08/16/2017 4:09 AM 018 4:09 (specimen) EST AM EST Yonathan Smith MD POINT OF CARE TEST ORDERABLE S Performing Organization Address City/State/[place] [address] POCT Glucose (08/15/2017 11:56 PM EST) athologist Signature POC Glucose 176 65 - 199 [facility] SU mg/dL [facility] Comment: Supplemental ranges: <140 mg/dL before meals <180 mg/dL all other times of the day Specimen Anatomical Collection Method Collection Time Receive d Time (Source) Location / / Volume Laterality Blood specimen 08/15/2017 11:56 8 (specimen) PM EST 11:56 PM EST Yonathan Smith MD POINT OF CARE TEST ORDERABLE S Performing Organization Address City/State/[place] [address] POCT Glucose (08/15/2017 8:05 PM EST) athologist Signature POC Glucose 136 65 - 199 [place] mg/dL [facility] Comment: Supplemental ranges: <140 mg/dL before meals <180 mg/dL all other times of the day Specimen Anatomical Collection Method Collection Time Receive d Time (Source) Location / / Volume Laterality Blood specimen 08/15/2017 8:05 PM 018 8:05 (specimen) EST PM EST Yonathan Smith MD POINT OF CARE TEST ORDERABLE S Performing Organization Address City/State/[place] [address] (ABNORMAL) POCT Glucose (08/15/2017 4:50 PM EST) athologist Signature POC Glucose 232 (H) 65 - 199 [facility] mg/dL [facility] Comment: Supplemental ranges: <140 mg/dL before meals <180 mg/dL all other times of the day Specimen Anatomical Collection Method Collection Time Receive d Time (Source) Location / / Volume Laterality Blood specimen 08/15/2017 4:50 PM 018 4:50 (specimen) EST PM EST Yonathan Smith MD POINT OF CARE TEST ORDERABLE S Performing Organization Address City/State/[place] [address] POCT Glucose (08/15/2017 12:04 PM EST) athologist Signature POC Glucose 135 65 - 199 [facility] mg/dL [facility] Comment: Supplemental ranges: <140 mg/dL before meals <180 mg/dL all other times of the day Specimen Anatomical Collection Method Collection Time Receive d Time (Source) Location / / Volume Laterality Blood specimen 08/15/2017 12:04 8 (specimen) PM EST 12:04 PM EST Yonathan Smith MD POINT OF CARE TEST ORDERABLE S Performing Organization Address City/State/[place] [address] POCT Glucose (08/15/2017 7:36 AM EST) P athologist Signature POC Glucose 124 65 - 199 [facility] mg/dL [facility] Comment: Supplemental ranges: <140 mg/dL before meals <180 mg/dL all other times of the day Specimen Anatomical Collection Method Collection Time Receive d Time (Source) Location / / Volume Laterality Blood specimen 08/15/2017 7:36 AM 018 7:36 (specimen) EST AM EST Yonathan Smith MD POINT OF CARE TEST ORDERABLE S Performing Organization Address City/State/[place] [address] (ABNORMAL) Differential, Automated (08/15/2017 6:22 AM EST) Patholo gist Method Time Signature Neutrophils % 76.1 % [facility] LABORATORY Neutr Abs (ANC) 6.62 (H) 1.70 - [facility] 6.[address] [facility] x10(3)/[facility] L LABORATORY Lymphocytes % 9.3 % [facility] LABORATORY Lymphocytes Abs 0.8 (L) 0.9 - 3.2 [facility] x10(3)/[facility] LABORATORY Monocytes % 9.4 % [facility] LABORATORY Monocyte Abs 0.8 0.3 - 0.9 [facility] x10(3)/[facility] LABORATORY Eosinophils % 4.0 % [facility] LABORATORY Eosinophils Abs 0.4 0.0 - 0.4 [facility] x10(3)/[facility] LABORATORY Basophils % 0.6 % [facility] LABORATORY Basophils Abs 0.0 0.0 - 0.1 [facility] x10(3)/[facility] LABORATORY Immature Gran % 0.60 % [facility] [...] Organization Address City/State/[place] [address] (ABNORMAL) Hemogram (08/15/2017 6:22 AM EST) Analysis Performed At Patho logist Time Signature WBC 8.7 4.0 - 9.5 [facility] x10(3)/[facility] LABORATORY RBC 3.21 (L) 4.58 - [facility] [address] [facility] x10(6)/[facility] LABORATORY Hemoglobin 9.1 (L) 13.7 - [facility] 16.5 gm/dL [facility] Hematocrit 29.0 (L) 40.5 - [facility] 48.5 % [facility] MCV 90.3 82.9 - [facility] 93.1 [facility] LABORATORY MCH 28.3 27.5 - [facility] 32.1 pg [facility] MCHC 31.4 (L) 32.0 - [facility] 35.[facility] gm/dL [facility] Platelets 254 145 - 357 [facility] x10(3)/[facility] LABORATORY RDWSD 53.9 (H) 36.0 - [facility] SU 45.0 [facility] LABORATORY RDWCV 16.3 (H) 11.4 - [facility] SU 13.8 % [facility] LABORAT[facility] MPV 8.8 7.6 - 12.9 [facility] LABORATORY nRBC % Auto 0.0 % [facility] LABORATORY nRBC Abs Auto 0.000 0.000 - [facility] SU 0.[address] [facility] x10(3)/[facility] LABORATORY Specimen Anatomical Collection Method Collection Time Receive d Time (Source) Location / / Volume Laterality Blood specimen 08/15/2017 6:22 AM 018 6:33 (specimen) EST AM EST Resulting Agency Comment Spec In Lab Yonathan Smith MD HEMATOLOGY ORDERABLES Performing Organization Address City/[facility]/[place] [address] (ABNORMAL) Basic Metabolic Panel (non-fasting) (08/15/2017 6:22 AM EST) athologist Signature Glucose Lvl 118 65 - 199 [facility] mg/dL [facility] Comment: [...] or in patients with acute kidney failure. [email or web address] [email or web address] Specimen Anatomical Collection Method Collection Time Receive d Time (Source) Location / / Volume Laterality Blood specimen 08/15/2017 6:22 AM 018 6:33 (specimen) EST AM EST Resulting Agency Comment Spec In Lab Yonathan Smith MD CHEMISTRY ORDERABLES Performing Organization Address City/[facility]/[place] [address] (ABNORMAL) Prothrombin Time (08/15/2017 6:22 AM EST) athologist Signature PT 21.9 (H) 11.8 - 14.0 [facility] LABORATORY INR 1.9 (H) 0.9 [...] Organization Address City/State/[place] [address] POCT Glucose (08/15/2017 4:33 AM EST) athologist Signature POC Glucose 164 65 - 199 [facility] mg/dL [facility] Comment: Supplemental ranges: <140 mg/dL before meals <180 mg/dL all other times of the day Specimen Anatomical Collection Method Collection Time Receive d Time (Source) Location / / Volume Laterality Blood specimen 08/15/2017 4:33 AM 018 4:33 (specimen) EST AM EST Yonathan Smith MD POINT OF CARE TEST ORDERABLE S Performing Organization Address City/State/[place] [address] POCT Glucose (08/15/2017 12:12 AM EST) athologist Signature POC Glucose 89 65 - 199 [facility] mg/dL [facility] Comment: Supplemental ranges: <140 mg/dL before meals <180 mg/dL all other times of the day Specimen Anatomical Collection Method Collection Time Receive d Time (Source) Location / / Volume Laterality Blood specimen 08/15/2017 12:12 8 (specimen) AM EST 12:12 AM EST Yonathan Smith MD POINT OF CARE TEST ORDERABLE S Performing Organization Address City/State/[place] [address] (ABNORMAL) POCT Glucose (08/14/2017 8:07 PM EST) athologist Signature POC Glucose 204 (H) 65 - 199 [place] [facility] mg/dL [facility] Comment: Supplemental ranges: <140 mg/dL before meals <180 mg/dL all other times of the day Specimen Anatomical Collection Method Collection Time Receive d Time (Source) Location / / Volume Laterality Blood specimen 08/14/2017 8:07 PM 018 8:07 (specimen) EST PM EST Yonathan Smith MD POINT OF CARE TEST ORDERABLE S Performing Organization Address City/State/[place] [address] POCT Glucose (08/14/2017 5:11 PM EST) athologist Signature POC Glucose 174 65 - 199 [place] [facility] mg/dL [facility] Comment: Supplemental ranges: <140 mg/dL before meals <180 mg/dL all other times of the day Specimen Anatomical Collection Method Collection Time Receive d Time (Source) Location / / Volume Laterality Blood specimen 08/14/2017 5:11 PM 018 5:11 (specimen) EST PM EST Yonathan Smith MD POINT OF CARE TEST ORDERABLE S Performing Organization Address City/State/[place] [address] POCT Glucose (08/14/2017 12:10 PM EST) athologist Signature POC Glucose 141 65 - 199 [place] [facility] mg/dL [facility] Comment: Supplemental ranges: <140 mg/dL before meals <180 mg/dL all other times of the day Specimen Anatomical Collection Method Collection Time Receive d Time (Source) Location / / Volume Laterality Blood specimen 08/14/2017 12:10 8 (specimen) PM EST 12:10 PM EST Yonathan Smith MD POINT OF CARE TEST ORDERABLE S Performing Organization Address City/State/ZIP Code Phon e Number [address] POCT Glucose (08/14/2017 8:07 AM EST) P athologist Signature POC Glucose 158 65 - 199 [facility] mg/dL [facility] Comment: Supplemental ranges: <140 mg/dL before meals <180 mg/dL all other times of the day Specimen Anatomical Collection Method Collection Time Receive d Time (Source) Location / / Volume Laterality Blood specimen 08/14/2017 8:07 AM 018 8:07 (specimen) EST AM EST Yonathan Smith MD POINT OF CARE TEST ORDERABLE S Performing Organization Address City/State/[place] [address] (ABNORMAL) Differential, Automated (08/14/2017 4:52 AM EST) Patholo gist Method Time Signature Neutrophils % 78.6 % [facility] LABORATORY Neutr Abs (ANC) 7.70 (H) 1.70 - [facility] 6.[address] [facility] x10(3)/[facility] L LABORATORY Lymphocytes % 7.8 % [facility] LABORATORY Lymphocytes Abs 0.8 (L) 0.9 - 3.2 [facility] x10(3)/[facility] LABORATORY Monocytes % 8.8 % [facility] LABORATORY Monocyte Abs 0.9 0.3 - 0.9 [facility] x10(3)/[facility] LABORATORY Eosinophils % 4.0 % [facility] LABORATORY Eosinophils Abs 0.4 0.0 - 0.4 [facility] x10(3)/[facility] LABORATORY Basophils % 0.5 % [facility] LABORATORY Basophils Abs 0.0 0.0 - 0.1 [facility] x10(3)/[facility] LABORATORY Immature Gran % 0.30 % [facility] [...] Melisa Gran Abs 0.03 0.00 - 0.04 x10(3)/[facility] MAR Y [facility] LABORATORY Specimen Anatomical Collection Method Collection Time Receive d Time (Source) Location / / Volume Laterality Blood specimen 08/14/2017 4:52 AM 018 5:08 (specimen) EST AM EST Resulting Agency Comment Spec In Lab Yonathan Smith MD HEMATOLOGY ORDERABLES Performing Organization Address City/State/[place] [address] (ABNORMAL) Hemogram (08/14/2017 4:52 AM EST) Analysis Performed At Patho logist Time Signature WBC 9.8 (H) 4.0 - 9.5 [facility] x10(3)/[facility] LABORATORY RBC 3.32 (L) 4.58 - [facility] [address] [facility] x10(6)/[facility] LABORATORY Hemoglobin 9.5 (L) 13.7 - [facility] 16[facility]m/dL [facility]ORAT[facility] Hematocrit 30.3 (L) 40.5 - [facility] SU 48.5 % [facility]ORAT[facility] MCV 91.3 82.9 - [facility] SU 93.1 [facility] LABORATORY MCH 28.6 27.5 - [place] [facility] 32.1 pg [facility]AT[facility] MCHC 31.4 (L) 32.0 - [facility] SU 35.7 gm/dL [facility] Platelets 263 145 - 357 [facility] x[facility](3[facility] LABORATORY RDWSD 54.8 (H) 36.0 - [facility] SU 45.[address] [facility] RDWCV 16.5 (H) 11.4 - [facility] SU 13.8 % [facility]ORAT[facility] MPV 9.1 7.6 - 12.9 [facility] LABORATORY nRBC % Auto 0.0 % [facility] LABORATORY nRBC Abs Auto 0.000 0.000 - [facility] 0.[address] [facility] x10(3)/[facility] LABORATORY Specimen Anatomical Collection Method Collection Time Receive d Time (Source) Location / / Volume Laterality Blood specimen 08/14/2017 4:52 AM 018 5:08 (specimen) EST AM EST Resulting Agency Comment Spec In Lab Yonathan Smith MD HEMATOLOGY ORDERABLES Performing Organization Address City/[facility]/[place] [address] (ABNORMAL) Prothrombin Time (08/14/2017 4:52 AM EST) athologist Signature PT 18.8 (H) 11.8 - 14.0 [facility] [...] Organization Address City/State/[place] [address] (ABNORMAL) Basic Metabolic Panel (non-fasting) (08/14/2017 4:52 AM EST) athologist Signature Glucose Lvl 135 65 - 199 [facility] mg/dL [facility]ORAT[facility] Comment: [...] CENTER LABORATORY Estimated GFR 52 (L) >=60 [facility] LABORATORY Comment: The reported eGFR should be multiplied b y 1.2 for patients. The MDRD is not an appropriate measure o f renal function for patients with body mass extremes or in patients with acute kidney failure. http://[email or web address]/DHnkdep [email or web address]/DHMCnkf Specimen Anatomical Collection Method Collection Time Receive d Time (Source) Location / / Volume Laterality Blood specimen 08/14/2017 4:52 AM 018 5:08 (specimen) EST AM EST Resulting Agency Comment Spec In Lab Yonathan Smith MD CHEMISTRY ORDERABLES Performing Organization Address City/State/[place] [address] POCT Glucose (08/14/2017 3:56 AM EST) P athologist Signature POC Glucose 135 65 - 199 [facility] mg/dL [facility] Comment: Supplemental ranges: <140 mg/dL before meals <180 mg/dL all other times of the day Specimen Anatomical Collection Method Collection Time Receive d Time (Source) Location / / Volume Laterality Blood specimen 08/14/2017 3:56 AM 018 3:56 (specimen) EST AM EST Yonathan Smith MD POINT OF CARE TEST ORDERABLE S Performing Organization Address City/State/ZIP [place] [address] POCT Glucose (08/13/2017 11:13 PM EST) athologist Signature POC Glucose 118 65 - 199 [place] [facility] mg/dL [facility] Comment: Supplemental ranges: <140 mg/dL before meals <180 mg/dL all other times of the day Specimen Anatomical Collection Method Collection Time Receive d Time (Source) Location / / Volume Laterality Blood specimen 08/13/2017 11:13 8 (specimen) PM EST 11:13 PM EST Yonathan Smith MD POINT OF CARE TEST ORDERABLE S Performing Organization Address City/[facility]/ZIP [place] [address] (ABNORMAL) POCT Glucose (08/13/2017 8:08 PM EST) athologist Signature POC Glucose 204 (H) 65 - 199 [place] [facility] mg/dL [facility] Comment: Supplemental ranges: <140 mg/dL before meals <180 mg/dL all other times of the day Specimen Anatomical Collection Method Collection Time Receive d Time (Source) Location / / Volume Laterality Blood specimen 08/13/2017 8:08 PM 018 8:08 (specimen) EST PM EST Yonathan Smith MD POINT OF CARE TEST ORDERABLE S Performing Organization Address City/[facility]/ZIP Code [place] [address] POCT Glucose (08/13/2017 4:02 PM EST) athologist Signature POC Glucose 145 65 - 199 [place] [facility] mg/dL [facility] Comment: Supplemental ranges: <140 mg/dL before meals <180 mg/dL all other times of the day Specimen Anatomical Collection Method Collection Time Receive d Time (Source) Location / / Volume Laterality Blood specimen 08/13/2017 4:02 PM 018 4:02 (specimen) EST PM EST Yonathan Smith MD POINT OF CARE TEST ORDERABLE S Performing Organization Address City/State/[place] [address] POCT Glucose (08/13/2017 11:31 AM EST) P athologist Signature POC Glucose 179 65 - 199 [facility] mg/dL [facility] Comment: Supplemental ranges: <140 mg/dL before meals <180 mg/dL all other times of the day Specimen Anatomical Collection Method Collection Time Receive d Time (Source) Location / / Volume Laterality Blood specimen 08/13/2017 11:31 8 (specimen) AM EST 11:31 AM EST Yonathan Smith MD POINT OF CARE TEST ORDERABLE S Performing Organization Address City/[facility]/[place] [address] (ABNORMAL) POCT Glucose (08/13/2017 10:16 AM EST) athologist Signature POC Glucose 211 (H) 65 - 199 [facility] mg/dL [facility] Comment: Supplemental ranges: <140 mg/dL before meals <180 mg/dL all other times of the day Specimen Anatomical Collection Method Collection Time Receive d Time (Source) Location / / Volume Laterality Blood specimen 08/13/2017 10:16 8 (specimen) AM EST 10:16 AM EST Yonathan Smith MD POINT OF CARE TEST ORDERABLE S Performing Organization Address City/[facility]/ZIP Code Phon e Number [address] JULIAN, legs, multiple levels (08/13/2017 7:42 AM EST) Component Value Ref Test Analysis Performed At Patholo gist Range Method Time Signature VB Text Department: Vascular Surgery Lab VASCUBASE Report Patient: [id number] (GREGORY HOANG) CPT: 77920 ICD10: I99.8 Referring Physician: YONATHAN SMITH ?? Indications: s/p R 1,2,3 toe amps with red left foot, need n ew baseline Diabetes mellitus: yes ICD10 Diagnosis Code: I99.8 Findings: Right ?Pressure (mm Hg) ?? UJLIAN ??Waveform ?TBI ?? Brachial Artery ?138 ? Dorsalis Pedis (Ankle) Arter y ?132 ? 0.94 ??[place]more- Biphasic ? Posterior Tibial (Ankle) Art anila ??154 ? 1.10 ??[place]more-Biphasic ? Fourth Toe ? 67 ? 0.48 [...] 156 65 - 199 [place] [facility] mg/dL [facility] Comment: Supplemental ranges: <140 mg/dL before meals <180 mg/dL all other times of the day Specimen Anatomical Collection Method Collection Time Receive d Time (Source) Location / / Volume Laterality Blood specimen 08/13/2017 7:33 AM 018 7:33 (specimen) EST AM EST Yonathan Smith MD POINT OF CARE TEST ORDERABLE S Performing Organization Address City/State/[place] [address] (ABNORMAL) Differential, Automated (08/13/2017 5:33 AM EST) [facility] Method Time Signature Neutrophils % 77.8 % [facility] LABORATORY Neutr Abs (ANC) 7.83 (H) 1.70 - [facility] 6.[address] [facility] x10(3)/[facility] L LABORATORY Lymphocytes % 8.4 % [facility] LABORATORY Lymphocytes Abs 0.8 (L) 0.9 - 3.2 [facility] x10(3)/[facility] LABORATORY Monocytes % 8.3 % [facility] LABORATORY Monocyte Abs 0.8 0.3 - 0.9 [facility] x10(3)/[facility] LABORATORY Eosinophils % 4.6 % [facility] LABORATORY Eosinophils Abs 0.5 (H) 0.0 - 0.4 [facility] x10(3)/[facility] LABORATORY Basophils % 0.5 % [facility] LABORATORY Basophils Abs 0.0 0.0 - 0.1 [facility] x10(3)/[facility] LABORATORY Immature Gran % 0.40 % [facility]BS [...] 0.04 0.00 - 0.04 x10(3)/[facility] LABORATORY Specimen Anatomical Collection Method Collection Time Receive d Time (Source) Location / / Volume Laterality Blood specimen 08/13/2017 5:33 AM 018 6:04 (specimen) EST AM EST Resulting Agency Comment Spec In Lab Yonathan Smith MD HEMATOLOGY ORDERABLES Performing Organization Address City/State/ZIP Code Phon e Number [address] (ABNORMAL) Hemogram (08/13/2017 5:33 AM EST) Analysis Performed At Patho logist Time Signature WBC 10.1 (H) 4.0 - 9.5 [facility] x10(3)/[facility] LABORATORY RBC 3.21 (L) 4.58 - [facility] [address] [facility] x10(6)/[facility] LABORATORY Hemoglobin 9.2 (L) 13.7 - [facility] 16.5 gm/dL [facility]ORAT[facility] Hematocrit 29.6 (L) 40.5 - [facility] 48.5 % [facility] MCV 92.2 82.9 - [facility] 93.1 [facility] LABORATORY MCH 28.7 27.5 - [facility] 32.1 pg [facility] MCHC 31.1 (L) 32.0 - [facility]m/dL [facility] Platelets 263 145 - 357 [facility] x10(3)/[facility] LABORATORY RDWSD 54.8 (H) 36.0 - [facility] 45.0 [facility] LABORATORY RDWCV 16.4 (H) 11.4 - [facility] 13.8 % [facility] LABORATORY MPV 9.2 7.6 - 12.9 [facility] LABORATORY nRBC % Auto 0.0 % [facility] LABORATORY nRBC Abs Auto 0.000 0.000 - [facility] 0.[address] [facility] x10(3)/[facility] LABORATORY Specimen Anatomical Collection Method Collection Time Receive d Time (Source) Location / / Volume Laterality Blood specimen 08/13/2017 5:33 AM 018 6:04 (specimen) EST AM EST Resulting Agency Comment Spec In Lab Yonathan Smith MD HEMATOLOGY ORDERABLES Performing Organization Address City/State/[place] [address] (ABNORMAL) Prothrombin Time (08/13/2017 5:33 AM EST) P athologist Signature PT 17.3 (H) 11.8 - 14.0 [facility] LABORATORY INR 1.4 (H) 0.9 [...] City/State/ZIP Code Phon e Number [place] [id number] LAB[address] (ABNORMAL) Basic Metabolic Panel (non-fasting) (08/13/2017 5:33 AM EST) athologist Signature Glucose Lvl 126 65 - 199 [facility] mg/dL [facility] Comment: [...] or in patients with acute kidney failure. [email or web address] Specimen Anatomical Collection Method Collection Time Receive d Time (Source) Location / / Volume Laterality Blood specimen 08/13/2017 5:33 AM 018 6:04 (specimen) EST AM EST Resulting Agency Comment Spec In Lab Yonathan Smith MD CHEMISTRY ORDERABLES Performing Organization Address City/[facility]/ZIP [facility] Phon e Number [address] POCT Glucose (08/13/2017 4:29 AM EST) athologist Signature POC Glucose 111 65 - 199 [facility]dL [facility] Comment: Supplemental ranges: <140 mg/dL before meals <180 mg/dL all other times of the day Specimen Anatomical Collection Method Collection Time Receive d Time (Source) Location / / Volume Laterality Blood specimen 08/13/2017 4:29 AM 018 4:29 (specimen) EST AM EST Yonathan Smith MD POINT OF CARE TEST ORDERABLE S Performing Organization Address City/[facility]/ZIP Code Phon e Number [address] POCT Glucose (08/12/2017 11:28 PM EST) athologist Signature POC Glucose 164 65 - 199 [facility] Comment: Supplemental ranges: <140 mg/dL before meals <180 mg/dL all other times of the day Specimen Anatomical Collection Method Collection Time Receive d Time (Source) Location / / Volume Laterality Blood specimen 08/12/2017 11:28 8 (specimen) PM EST 11:28 PM EST Yonathan Smith MD POINT OF CARE TEST ORDERABLE S Performing Organization Address City/[facility]/ZIP [place] [address] (ABNORMAL) POCT Glucose (08/12/2017 7:40 PM EST) athologist Signature POC Glucose 209 (H) 65 - 199 [facility] mg/dL [facility] Comment: Supplemental ranges: <140 mg/dL before meals <180 mg/dL all other times of the day Specimen Anatomical Collection Method Collection Time Receive d Time (Source) Location / / Volume Laterality Blood specimen 08/12/2017 7:40 PM 018 7:40 (specimen) EST PM EST Yonathan Smith MD POINT OF CARE TEST ORDERABLE S Performing Organization Address City/State/ZIP Code Phon e Number [address] POCT Glucose (08/12/2017 4:24 PM EST) athologist Signature POC Glucose 161 65 - 199 [facility] Comment: Supplemental ranges: <140 mg/dL before meals <180 mg/dL all other times of the day Specimen Anatomical Collection Method Collection Time Receive d Time (Source) Location / / Volume Laterality Blood specimen 08/12/2017 4:24 PM 018 4:24 (specimen) EST PM EST Yonathan Smith MD POINT OF CARE TEST ORDERABLE S Performing Organization Address City/State/[place] [address] POCT Glucose (08/12/2017 12:00 PM EST) athologist Signature POC Glucose 167 65 - 199 [place] [facility] mg/dL [facility] Comment: Supplemental ranges: <140 mg/dL before meals <180 mg/dL all other times of the day Specimen Anatomical Collection Method Collection Time Receive d Time (Source) Location / / Volume Laterality Blood specimen 08/12/2017 12:00 8 (specimen) PM EST 12:00 PM EST Yonathan Smith MD POINT OF CARE TEST ORDERABLE S Performing Organization Address City/State/[place] [address] POCT Glucose (08/12/2017 7:25 AM EST) P athologist Signature POC Glucose 152 65 - 199 [facility] mg/dL [facility] Comment: Supplemental ranges: <140 mg/dL before meals <180 mg/dL all other times of the day Specimen Anatomical Collection Method Collection Time Receive d Time (Source) Location / / Volume Laterality Blood specimen 08/12/2017 7:25 AM 018 7:25 (specimen) EST AM EST Yonathan Smith MD POINT OF CARE TEST ORDERABLE S Performing Organization Address City/State/[place] [address] (ABNORMAL) Differential, Automated (08/12/2017 6:29 AM EST) Patholo gist Method Time Signature Neutrophils % 78.7 % [facility] Neutr Abs (ANC) 7.94 (H) 1.70 - [facility] 6.[address] [facility] x10(3)/[facility] LABORATORY Lymphocytes % 8.8 % [facility] Lymphocytes Abs 0.9 0.9 - 3.2 [facility] x10(3)/[facility] LABORATORY Monocytes % 7.8 % [facility] Monocyte Abs 0.8 0.3 - 0.9 [facility] x10(3)/[facility] LABORATORY Eosinophils % 3.9 % [facility] Eosinophils Abs 0.4 0.0 - 0.4 [facility] x10(3)/[facility] LABORATORY Basophils % 0.3 % [facility] Basophils Abs 0.0 0.0 - 0.1 [facility] x10(3)/[facility] LABORATORY Immature Gran % 0.50 % [facility] [...] Organization Address City/State/[place] [address] (ABNORMAL) Hemogram (08/12/2017 6:29 AM EST) Analysis Performed At Patho logist Time Signature WBC 10.1 (H) 4.0 - 9.5 [facility] x10(3)/[facility] LABORATORY RBC 3.02 (L) 4.58 - [facility] [address] [facility] x10(6)/[facility] LABORATORY Hemoglobin 8.7 (L) 13.7 - [facility] 16.5 gm/dL [facility] Hematocrit 28.1 (L) 40.5 - [facility] 48.5 % [facility] MCV 93.0 82.9 - [facility] 93.1 [facility] LABORATORY MCH 28.8 27.5 - [facility] 32.1 pg [facility] MCHC 31.0 (L) 32.0 - [facility] 35.7 gm/dL [facility] Platelets 223 145 - 357 [facility] x10(3)/[facility] LABORATORY RDWSD 56.1 (H) 36.0 - [facility] 45.0 [facility] LABORATORY RDWCV 16.4 (H) 11.4 - [facility] SU 13.8 % [facility] MPV 9.0 7.6 - 12.9 [facility] LABORATORY nRBC % Auto 0.0 % [facility] nRBC Abs Auto 0.000 0.000 - [facility] SU 0.[address] [facility] x10(3)/[facility] LABORATORY Specimen Anatomical Collection Method Collection Time Receive d Time (Source) Location / / Volume Laterality Blood specimen 08/12/2017 6:29 AM 018 6:38 (specimen) EST AM EST Resulting Agency Comment Spec In Lab Yonathan Smith MD HEMATOLOGY ORDERABLES Performing Organization Address City/[facility]/[place] [address] (ABNORMAL) Prothrombin Time (08/12/2017 6:29 AM EST) athologist Signature PT 16.1 (H) 11.8 - 14.0 [facility] [place] [address] (ABNORMAL) Basic Metabolic Panel (non-fasting) (08/12/2017 6:29 AM EST) athologist Signature Glucose Lvl 151 65 - 199 [facility] mg/dL [facility] Comment: [...] or in patients with acute kidney failure. [email or web address] Specimen Anatomical Collection Method Collection Time Receive d Time (Source) Location / / Volume Laterality Blood specimen 08/12/2017 6:29 AM 018 6:38 (specimen) EST AM EST Resulting Agency Comment Spec In Lab Yonathan Smith MD CHEMISTRY ORDERABLES Performing Organization Address City/[facility]/ZIP Code Phon e Number [address] POCT Glucose (08/12/2017 4:08 AM EST) athologist Signature POC Glucose 181 65 - 199 [facility] Comment: Supplemental ranges: <140 mg/dL before meals <180 mg/dL all other times of the day Specimen Anatomical Collection Method Collection Time Receive d Time (Source) Location / / Volume Laterality Blood specimen 08/12/2017 4:08 AM 018 4:08 (specimen) EST AM EST Yonathan Smith MD POINT OF CARE TEST ORDERABLE S Performing Organization Address City/[facility]/[place] [address] (ABNORMAL) POCT Glucose (08/12/2017 12:17 AM EST) athologist Signature POC Glucose 221 (H) 65 - 199 [facility] mg[facility]dL [facility] Comment: Supplemental ranges: <140 mg/dL before meals <180 mg/dL all other times of the day Specimen Anatomical Collection Method Collection Time Receive d Time (Source) Location / / Volume Laterality Blood specimen 08/12/2017 12:17 8 (specimen) AM EST 12:17 AM EST Yonathan Smith MD POINT OF CARE TEST ORDERABLE S Performing Organization Address City/State/[place] [address] (ABNORMAL) POCT Glucose (08/11/2017 8:52 PM EST) athologist Signature POC Glucose 221 (H) 65 - 199 [facility] mg/dL [facility] Comment: Supplemental ranges: <140 mg/dL before meals <180 mg/dL all other times of the day Specimen Anatomical Collection Method Collection Time Receive d Time (Source) Location / / Volume Laterality Blood specimen 08/11/2017 8:52 PM 018 8:52 (specimen) EST PM EST Yonathan Smith MD POINT OF CARE TEST ORDERABLE S Performing Organization Address City/[facility]/ZIP [place] [address] POCT Glucose (08/11/2017 5:59 PM EST) athologist Signature POC Glucose 169 65 - 199 [facility] mg/dL [facility] Comment: Supplemental ranges: <140 mg/dL before meals <180 mg/dL all other times of the day Specimen Anatomical Collection Method Collection Time Receive d Time (Source) Location / / Volume Laterality Blood specimen 08/11/2017 5:59 PM 018 5:59 (specimen) EST PM EST Yonathan Smith MD POINT OF CARE TEST ORDERABLE S Performing Organization Address City/State/[place] [address] (ABNORMAL) POCT Glucose (08/11/2017 4:08 PM EST) athologist Signature POC Glucose 240 (H) 65 - 199 [facility] mg/dL [facility] Comment: Supplemental ranges: <140 mg/dL before meals <180 mg/dL all other times of the day Specimen Anatomical Collection Method Collection Time Receive d Time (Source) Location / / Volume Laterality Blood specimen 08/11/2017 4:08 PM 018 4:08 (specimen) EST PM EST Yonathan Smith MD POINT OF CARE TEST ORDERABLE S Performing Organization Address City/State/ZIP Code Phon e Number [address] POCT Glucose (08/11/2017 12:04 PM EST) athologist Signature POC Glucose 182 65 - 199 [facility] Comment: Supplemental ranges: <140 mg/dL before meals <180 mg/dL all other times of the day Specimen Anatomical Collection Method Collection Time Receive d Time (Source) Location / / Volume Laterality Blood specimen 08/11/2017 12:04 8 (specimen) PM EST 12:04 PM EST Yonathan Smith MD POINT OF CARE TEST ORDERABLE S Performing Organization Address City/[facility]/ZIP [place] [address] POCT Glucose (08/11/2017 7:31 AM EST) athologist Signature POC Glucose 156 65 - 199 [facility]dL [facility] Comment: Supplemental ranges: <140 mg/dL before meals <180 mg/dL all other times of the day Specimen Anatomical Collection Method Collection Time Receive d Time (Source) Location / / Volume Laterality Blood specimen 08/11/2017 7:31 AM 018 7:31 (specimen) EST AM EST Yonathan Smith MD POINT OF CARE TEST ORDERABLE S Performing Organization Address City/State/ZIP Code Phon e Number [address] (ABNORMAL) Differential, Automated (08/11/2017 6:16 AM EST) [facility] gist Method Time Signature Neutrophils % 83.7 % [facility] Neutr Abs (ANC) 10.76 (H) 1.70 - [facility] 6.[address] [facility] x10(3)/[facility] L LABORATORY Lymphocytes % 6.0 % [facility] Lymphocytes Abs 0.8 (L) 0.9 - 3.2 [facility] x10(3)/[facility] LABORATORY Monocytes % 7.5 % [facility] Monocyte Abs 1.0 (H) 0.3 - 0.9 [facility] x10(3)/[facility] LABORATORY Eosinophils % 2.0 % [facility] Eosinophils Abs 0.3 0.0 - 0.4 [facility] x10(3)/[facility] LABORATORY Basophils % 0.3 % [facility] Basophils Abs 0.0 0.0 - 0.1 [facility] x10(3)/[facility] LABORATORY Immature Gran % 0.50 % [facility] [...] Gran Abs 0.06 (H) 0.00 - 0.04 x10(3)/[facility] LABORATORY Specimen Anatomical Collection Method Collection Time Receive d Time (Source) Location / / Volume Laterality Blood specimen 08/11/2017 6:16 AM 018 6:24 (specimen) EST AM EST Resulting Agency Comment Spec In Lab Yonathan Smith MD HEMATOLOGY ORDERABLES Performing Organization Address City/State/[place] [address] (ABNORMAL) Hemogram (08/11/2017 6:16 AM EST) Analysis Performed At Patho logist Time Signature WBC 12.9 (H) 4.0 - 9.5 [facility] x10(3)/[facility] LABORATORY RBC 3.28 (L) 4.58 - [facility] 5.[address] [facility] x10(6)/[facility] LABORATORY Hemoglobin 9.5 (L) 13.7 - [facility] 16.5 gm/dL [facility] Hematocrit 29.8 (L) 40.5 - [facility] 48.5 % [facility] MCV 90.9 82.9 - [facility] 93.1 [facility] LABORATORY MCH 29.0 27.5 - [facility] 32.1 [facility] LABORATORY MCHC 31.9 (L) 32.0 - [facility] 35.7 gm/dL [facility] Platelets 236 145 - 357 [facility] x10(3)/[facility] LABORATORY RDWSD 53.5 (H) 36.0 - [place] [facility] 45.0 [facility] LABORATORY RDWCV 16.3 (H) 11.4 - [facility] 13.8 % [facility] MPV 8.8 7.6 - 12.9 [facility] nRBC % Auto 0.0 % [facility] nRBC Abs Auto 0.000 0.000 - [facility] 0.[address] [facility] x10(3)/[facility] LABORATORY Specimen Anatomical Collection Method Collection Time Receive d Time (Source) Location / / Volume Laterality Blood specimen 08/11/2017 6:16 AM 018 6:24 (specimen) EST AM EST Resulting Agency Comment Spec In Lab Yonathan Smith MD HEMATOLOGY ORDERABLES Performing Organization Address City/State/ZIP Code Phon e Number [place] [id number] [address]OSP[address] LAB[address]ORY Drive (ABNORMAL) Prothrombin Time (08/11/2017 6:16 AM EST) P athologist Signature PT 15.5 (H) 11.8 - 14.0 [facility] [...] Organization Address City/State/[place] [address] Basic Metabolic Panel (non-fasting) (08/11/2017 6:16 AM EST) P athologist Signature Glucose Lvl 139 65 - 199 [facility] mg/dL [facility] Comment: [...] or in patients with acute kidney failure. [email or web address] Specimen Anatomical Collection Method Collection Time Receive d Time (Source) Location / / Volume Laterality Blood specimen 08/11/2017 6:16 AM 018 6:24 (specimen) EST AM EST Resulting Agency Comment Spec In Lab Yonathan Smith MD CHEMISTRY ORDERABLES Performing Organization Address City/State/ZIP Code Phon e Number [address] POCT Glucose (08/11/2017 4:07 AM EST) athologist Signature POC Glucose 162 65 - 199 [place] mg/dL [facility] Comment: Supplemental ranges: <140 mg/dL before meals <180 mg/dL all other times of the day Specimen Anatomical Collection Method Collection Time Receive d Time (Source) Location / / Volume Laterality Blood specimen 08/11/2017 4:07 AM 018 4:07 (specimen) EST AM EST Yonathan Smith MD POINT OF CARE TEST ORDERABLE S Performing Organization Address City/[facility]/ZIP Code Phon e Number [place] [address] POCT Glucose (08/10/2017 11:59 PM EST) athologist Signature POC Glucose 166 65 - 199 [place] mg/dL [facility] Comment: Supplemental ranges: <140 mg/dL before meals <180 mg/dL all other times of the day Specimen Anatomical Collection Method Collection Time Receive d Time (Source) Location / / Volume Laterality Blood specimen 08/10/2017 11:59 8 (specimen) PM EST 11:59 PM EST Yonathan Smith MD POINT OF CARE TEST ORDERABLE S Performing Organization Address City/[facility]/ZIP Code Phon e Number [place] [address] POCT Glucose (08/10/2017 8:12 PM EST) athologist Signature POC Glucose 156 65 - 199 [place] mg/dL [facility] Comment: Supplemental ranges: <140 mg/dL before meals <180 mg/dL all other times of the day Specimen Anatomical Collection Method Collection Time Receive d Time (Source) Location / / Volume Laterality Blood specimen 08/10/2017 8:12 PM 018 8:12 (specimen) EST PM EST Yonathan Smith MD POINT OF CARE TEST ORDERABLE S Performing Organization Address City/State/[place] [address] (ABNORMAL) POCT Glucose (08/10/2017 4:42 PM EST) P athologist Signature POC Glucose 211 (H) 65 - 199 [facility] mg[facility]dL [facility] Comment: Supplemental ranges: <140 mg/dL before meals <180 mg/dL all other times of the day Specimen Anatomical Collection Method Collection Time Receive d Time (Source) Location / / Volume Laterality Blood specimen 08/10/2017 4:42 PM 018 4:42 (specimen) EST PM EST Yonathan Smith MD POINT OF CARE TEST ORDERABLE S Performing Organization Address City/State/ZIP Code Phon e Number [address] (ABNORMAL) Differential, Automated (08/10/2017 2:30 PM EST) Patholo gist Method Time Signature Neutrophils % 87.6 % [facility] Neutr Abs (ANC) 9.90 (H) 1.70 - [facility] 6.[address] [facility] x10(3)/[facility] L LABORATORY Lymphocytes % 4.3 % [facility] Lymphocytes Abs 0.5 (L) 0.9 - 3.2 [facility] x10(3)/[facility] LABORATORY Monocytes % 6.0 % [facility] Monocyte Abs 0.7 0.3 - 0.9 [facility] x10(3)/[facility] LABORATORY Eosinophils % 1.1 % [facility] Eosinophils Abs 0.1 0.0 - 0.4 [facility] x10(3)/[facility] LABORATORY Basophils % 0.4 % [facility] Basophils Abs 0.0 0.0 - 0.1 [facility] x10(3)/[facility] LABORATORY Immature Gran % 0.60 % [facility] [...] Organization Address City/State/[place] [address] (ABNORMAL) Hemogram (08/10/2017 2:30 PM EST) Analysis Performed At Patho logist Time Signature WBC 11.3 (H) 4.0 - 9.5 [facility] x10(3)/[facility] LABORATORY RBC 3.13 (L) 4.58 - [facility] 5.[address] [facility] x10(6)/[facility] LABORATORY Hemoglobin 8.9 (L) 13.7 - [facility] 16[facility] gm/dL [facility] Hematocrit 28.4 (L) 40.5 - [facility] 48.5 % [facility] MCV 90.7 82.9 - [facility] 93.1 [facility] LABORATORY MCH 28.4 27.5 - [facility] 32.1 pg [facility] MCHC 31.3 (L) 32.0 - [facility] 35.7 gm/dL [facility] Platelets 213 145 - 357 [facility] x10(3)/[facility] LABORATORY RDWSD 53.7 (H) 36.0 - [facility] 45.0 [facility] LABORATORY RDWCV 16.4 (H) 11.4 - [facility] 13.8 % [facility] MPV 8.9 7.6 - 12.9 [facility] LABORATORY nRBC % Auto 0.0 % [facility] nRBC Abs Auto 0.000 0.000 - [facility] 0.[address] [facility] x10(3)/[facility] LABORATORY Specimen Anatomical Collection Method Collection Time Receive d Time (Source) Location / / Volume Laterality Blood specimen 08/10/2017 2:30 PM 018 2:48 (specimen) EST PM EST Resulting Agency Comment Spec In Lab Yonathan Smith MD HEMATOLOGY ORDERABLES Performing Organization Address City/State/[place] [address] (ABNORMAL) POCT Glucose (08/10/2017 1:50 PM EST) athologist Signature POC Glucose 243 (H) 65 - 199 [facility] Comment: Supplemental ranges: <140 mg/dL before meals <180 mg/dL all other times of the day Specimen Anatomical Collection Method Collection Time Receive d Time (Source) Location / / Volume Laterality Blood specimen 08/10/2017 1:50 PM 018 1:50 (specimen) EST PM EST Yonathan Smith MD POINT OF CARE TEST ORDERABLE S Performing Organization Address City/[facility]/ZIP [place] [address] POCT Glucose (08/10/2017 11:21 AM EST) athologist Signature POC Glucose 156 65 - 199 [facility] Comment: Supplemental ranges: <140 mg/dL before meals <180 mg/dL all other times of the day Specimen Anatomical Collection Method Collection Time Receive d Time (Source) Location / / Volume Laterality Blood specimen 08/10/2017 11:21 8 (specimen) AM EST 11:21 AM EST Yonathan Smith MD POINT OF CARE TEST ORDERABLE S Performing Organization Address City/State/[place] [address] (ABNORMAL) Differential, Automated (08/10/2017 10:28 AM EST) [facility] gist Method Time Signature Neutrophils % 85.3 % [facility] Neutr Abs (ANC) 9.43 (H) 1.70 - [facility] 6.[address] [facility] x10(3)/[facility] L LABORATORY Lymphocytes % 5.5 % [facility] Lymphocytes Abs 0.6 (L) 0.9 - 3.2 [facility] x10(3)/[facility] LABORATORY Monocytes % 5.9 % [facility] Monocyte Abs 0.6 0.3 - 0.9 [facility] x10(3)/[facility] LABORATORY Eosinophils % 2.1 % [facility] Eosinophils Abs 0.2 0.0 - 0.4 [facility] x10(3)/[facility] LABORATORY Basophils % 0.4 % [facility] Basophils Abs 0.0 0.0 - 0.1 [facility] x10(3)/[facility] LABORATORY Immature Gran % 0.80 % [facility] [...] Organization Address City/State/ZIP Code Phon e Number [place] [address] (ABNORMAL) Hemogram (08/10/2017 10:28 AM EST) Analysis Performed At Patho logist Time Signature WBC 11.0 (H) 4.0 - 9.5 [facility] x10(3)/[facility] LABORATORY RBC 3.02 (L) 4.58 - [facility] 5.[address] [facility] x10(6)/[facility] LABORATORY Hemoglobin 8.8 (L) 13.7 - [facility] 16.5 gm/dL [facility]AT[facility] Hematocrit 28.1 (L) 40.5 - [facility] DAVIS 48.5 % [facility] MCV 93.0 82.9 - [facility] 93.1 [facility] LABORATORY MCH 29.1 27.5 - BARBARA OLIVASCK 32.1 pg [facility] MCHC 31.3 (L) 32.0 - [facility] DAVIS 35.7 gm/dL [facility] Platelets 207 145 - 357 [facility] [place] x10(3)/[facility] LABORATORY RDWSD 55.3 (H) 36.0 - BARBARA OLIVASCK 45.0 [facility] LABORATORY RDWCV 16.4 (H) 11.4 - [facility] SU 13.8 % [facility] MPV 9.0 7.6 - 12.9 [facility] LABORATORY nRBC % Auto 0.0 % [facility] LABORATORY nRBC Abs Auto 0.000 0.000 - BARBARA ZHAOSU 0.[address] [facility] x10(3)/[facility] LABORATORY Specimen Anatomical Collection Method Collection Time Receive d Time (Source) Location / / Volume Laterality Blood specimen 08/10/2017 10:28 8 (specimen) AM EST 10:35 AM EST Resulting Agency Comment Spec In Lab Yonathan Smith MD HEMATOLOGY ORDERABLES Performing Organization Address City/State/ZIP Code Phon e Number [place] [id number] VS Angiogram/intervention (vascular) (08/10/2017 [...] 2.5x80 5. Completion RLE angiogram 6. L [employer] angiogram 7. 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 - [employer] angriogram demonstrated: High fe moral bifurcation over the proximal half of the femoral head. [employer] access in the distal [employer]. - Closure device: Mynx Technical Procedure: ?The [...] for a 45cm 5F Destination. V18 and Delta a nd QuickCross catheters were used to [...] bifurcation. Access appeared in the distal R [employer]. Closure and sheath removal was performed with [...] 2.5x80 5. Completion RLE angiogram 6. [employer] angiogram 7. 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 - [employer] angriogram demonstrated: High fe moral bifurcation over the proximal half of the femoral head. [employer] access in the distal [employer]. - Closure device: Mynx Technical Procedure: The [...] for a 45cm 5F Destination. V18 and Delta a nd QuickCross catheters were used to [...] bifurcation. Access appeared in the distal [employer]. Closure and sheath removal was performed with [...] Abs (ANC) 9.01 (H) 1.70 - [facility] 6.[address] [facility] x10(3)/[facility] LABORATORY Lymphocytes % 8.8 % [facility] LABORATORY Lymphocytes Abs 1.0 0.9 - 3.2 [facility](3[facility] LABORATORY Monocytes % 8.3 % [facility] LABORATORY Monocyte Abs 0.9 0.3 - 0.9 [facility] x[facility](3[facility] LABORATORY Eosinophils % 2.0 % [facility] LABORATORY Eosinophils Abs 0.2 0.0 - 0.4 [facility] x10(3)/[facility] LABORATORY Basophils % 0.4 % [facility] LABORATORY Basophils Abs 0.0 0.0 - 0.1 [facility] x10(3)/[facility] LABORATORY Immature Gran % 0.40 % [facility]BS [...] Organization Address City/State/[place] [address] (ABNORMAL) Hemogram (08/10/2017 5:50 AM EST) Analysis Performed At Patho logist Time Signature WBC 11.3 (H) 4.0 - 9.5 [facility] x10(3)/[facility] LABORATORY RBC 3.15 (L) 4.58 - [facility] [address] [facility] x10(6)/[facility] LABORATORY Hemoglobin 8.9 (L) 13.7 - [facility] 16.5 gm/dL [facility] Hematocrit 29.0 (L) 40.5 - [facility] 48.5 % [facility] MCV 92.1 82.9 - [facility] 93.1 [facility] LABORATORY MCH 28.3 27.5 - [facility] SU 32.1 pg [facility] MCHC 30.7 (L) 32.0 - [facility] 35.7 gm/dL [facility] Platelets 231 145 - 357 [facility] x10(3)/[facility] LABORATORY RDWSD 53.9 (H) 36.0 - [facility] SU 45.0 [facility] LABORATORY RDWCV 16.2 (H) 11.4 - [facility] SU 13.8 % [facility] MPV 8.7 7.6 - 12.9 [facility] LABORATORY nRBC % Auto 0.0 % [facility] LABORATORY nRBC Abs Auto 0.000 0.000 - [facility] 0.[address] [facility] x10(3)/[facility] LABORATORY Specimen Anatomical Collection Method Collection Time Receive d Time (Source) Location / / Volume Laterality Blood specimen 08/10/2017 5:50 AM 018 5:59 (specimen) EST AM EST Resulting Agency Comment Spec In Lab Yonathan Smith MD HEMATOLOGY ORDERABLES Performing Organization Address City/State/[place] [address] (ABNORMAL) Basic Metabolic Panel (non-fasting) (08/10/2017 5:50 AM EST) P athologist Signature Glucose Lvl 135 65 - 199 [facility] mg/dL [facility] Comment: [...] or in patients with acute kidney failure. http://[employer]/DHnkdep [email or web address]://[employer]/DHMCnkf Specimen Anatomical Collection Method Collection Time Receive d Time (Source) Location / / Volume Laterality Blood specimen 08/10/2017 5:50 AM 018 5:59 (specimen) EST AM EST Resulting Agency Comment Spec In Lab Yonathan Smith MD CHEMISTRY ORDERABLES Performing Organization Address [facility] [place] [address] (ABNORMAL) Prothrombin Time (08/10/2017 5:50 AM EST) athologist Signature PT 16.8 (H) 11.8 - 14.0 [facility] LABORATORY INR 1.4 (H) 0.9 [...] Performing Organization Address City/[facility] [place] [address] (ABNORMAL) POCT Glucose (08/10/2017 4:01 AM EST) athologist Signature POC Glucose 206 (H) 65 - 199 [facility] mg/dL [facility] Comment: Supplemental ranges: <140 mg/dL before meals <180 mg/dL all other times of the day Specimen Anatomical Collection Method Collection Time Receive d Time (Source) Location / / Volume Laterality Blood specimen 08/10/2017 4:01 AM 018 4:01 (specimen) EST AM EST Yonathan Smith MD POINT OF CARE TEST ORDERABLE S Performing Organization Address City/State/[place] [address] POCT Glucose (08/10/2017 2:01 AM EST) athologist Signature POC Glucose 188 65 - 199 [facility] SU mg/dL [facility] Comment: Supplemental ranges: <140 mg/dL before meals <180 mg/dL all other times of the day Specimen Anatomical Collection Method Collection Time Receive d Time (Source) Location / / Volume Laterality Blood specimen 08/10/2017 2:01 AM 018 2:01 (specimen) EST AM EST Yonathan Smith MD POINT OF CARE TEST ORDERABLE S Performing Organization Address City/[facility]/[place] [address] (ABNORMAL) POCT Glucose (08/09/2017 11:42 PM EST) athologist Signature POC Glucose 283 (H) 65 - 199 [facility] SU mg/dL [facility] Comment: Supplemental ranges: <140 mg/dL before meals <180 mg/dL all other times of the day Specimen Anatomical Collection Method Collection Time Receive d Time (Source) Location / / Volume Laterality Blood specimen 08/09/2017 11:42 8 (specimen) PM EST 11:42 PM EST Yonathan Smith MD POINT OF CARE TEST ORDERABLE S Performing Organization Address City/State/[place] [address] POCT Glucose (08/09/2017 8:55 PM EST) athologist Signature POC Glucose 182 65 - 199 [facility] SU mg/dL [facility] Comment: Supplemental ranges: <140 mg/dL before meals <180 mg/dL all other times of the day Specimen Anatomical Collection Method Collection Time Receive d Time (Source) Location / / Volume Laterality Blood specimen 08/09/2017 8:55 PM 018 8:55 (specimen) EST PM EST Yonathan Smith MD POINT OF CARE TEST ORDERABLE S Performing Organization Address City/[facility]/[place] [address] (ABNORMAL) APTT (08/09/2017 6:42 [...] [facility]/[place] [address] POCT Glucose (08/09/2017 4:41 PM EST) athologist Signature POC Glucose 195 65 - 199 [facility] mg/dL [facility] Comment: Supplemental ranges: <140 mg/dL before meals <180 mg/dL all other times of the day Specimen Anatomical Collection Method Collection Time Receive d Time (Source) Location / / Volume Laterality Blood specimen 08/09/2017 4:41 PM 018 4:41 (specimen) EST PM EST Yonathan Smith MD POINT OF CARE TEST ORDERABLE S Performing Organization Address City/[facility]/[place] [address] POCT Glucose (08/09/2017 12:29 PM EST) athologist Signature POC Glucose 140 65 - 199 [facility] mg/dL [facility] Comment: Supplemental ranges: <140 mg/dL before meals <180 mg/dL all other times of the day Specimen Anatomical Collection Method Collection Time Receive d Time (Source) Location / / Volume Laterality Blood specimen 08/09/2017 12:29 8 (specimen) PM EST 12:29 PM EST Yonathan Smith MD POINT OF CARE TEST ORDERABLE S Performing Organization Address [facility]/ZIP Code Phon e Number [address] POCT Glucose (08/09/2017 9:59 AM EST) P athologist Signature POC Glucose 135 65 - 199 [facility] mg/dL [facility] Comment: Supplemental ranges: <140 mg/dL before meals <180 mg/dL all other times of the day Specimen Anatomical Collection Method Collection Time Receive d Time (Source) Location / / Volume Laterality Blood specimen 08/09/2017 9:59 AM 018 9:59 (specimen) EST AM EST Yonathan Smith MD POINT OF CARE TEST ORDERABLE S Performing Organization Address [facility]/[place] [address] Specimen to Pathology (08/09/2017 [...] [facility]/[place] [address] Surgical Pathology Report (08/09/2017 8:40 AM EST) Component Value Ref Test Analysis Performed At Patholo gist Range Method Time Signature Surgical [id number] ? Location: [facility]; [facility]; A [facility] Report The signing pathologist has (i) [...] Flower Verified: ??08/13/2017 ?Pathologist Performed at: ??-[facility] Dept. of [facility]ology, [place], [place] CLINICAL INFORMATION Specimen Submitted: A - [...] Organization Address City/State/[place] [address] Anaerobic Culture (08/09/2017 8:30 AM EST) [facility] Method Time Signature Anaerobic No anaerobic [facility] Culture organisms [facility] LABORATORY Specimen Anatomical Collection Method Collection Time [...] [facility]/[place] [address] (ABNORMAL) Abscess/Wound Aspirate Culture (08/09/2017 8:30 AM EST) [facility] Method Time Signature Abscess/Wound Moderate mixed [facility] Aspirate bacterial [place] Culture morphotypes [facility] normal LABORATORY cutaneous leroy (A) Gram Stain Rare White Blood Cells BARBARA Few Gram Positive Cocci in pairs [place] () [facility] Organism Gram Positive [place] Cocci in pairs [place] () [facility] Specimen Anatomical [...] [facility]/ZIP Code Phon e [place] [address] POCT Glucose (08/09/2017 4:28 AM EST) P athologist Signature POC Glucose 128 65 - 199 [facility] mg/dL [facility] Comment: Supplemental ranges: <140 mg/dL before meals <180 mg/dL all other times of the day Specimen Anatomical Collection Method Collection Time Receive d Time (Source) Location / / Volume Laterality Blood specimen 08/09/2017 4:28 AM 018 4:28 (specimen) EST AM EST Yonathan Smith MD POINT OF CARE TEST ORDERABLE S Performing Organization Address City/State/[place] [address] ABORH Recheck Status (08/09/2017 [...] Organization Address City/State/[place] [address] Antibody screen (08/09/2017 1:10 AM EST) [facility] Method [place] Signature Ab Screen Negative [facility] LABORATORY Expires at 08/12/2017 [facility] [id number] on: [facility]OR[facility]ORY Specimen Anatomical Collection Method Collection Time Receive d Time (Source) Location / / Volume Laterality Blood specimen 08/09/2017 1:10 AM 018 1:35 (specimen) EST AM EST Resulting Agency Comment Spec In Lab Yonathan Smith MD BLOOD BANK ORDERABLES Performing Organization Address City/State/[place] [address] ABO/Rh Typing (08/09/2017 1:10 [...] Organization Address City/State/[place] [address] (ABNORMAL) APTT (08/09/2017 1:10 [...] Organization Address City/State/[place] [address] (ABNORMAL) Differential, Automated (08/09/2017 1:10 AM EST) [facility] Method Time Signature Neutrophils % 76.2 % [facility] LABORATORY Neutr Abs (ANC) 8.59 (H) 1.70 - [facility] 6.[address] [facility] x10(3)/[facility] LABORATORY Lymphocytes % 11.0 % [facility] LABORATORY Lymphocytes Abs 1.2 0.9 - 3.2 [facility] x10(3)/[facility] LABORATORY Monocytes % 8.4 % [facility] LABORATORY Monocyte Abs 1.0 (H) 0.3 - 0.9 [facility] x10(3)/[facility] LABORATORY Eosinophils % 3.5 % [facility] LABORATORY Eosinophils Abs 0.4 0.0 - 0.4 [facility] x10(3)/[facility] LABORATORY Basophils % 0.5 % [facility] LABORATORY Basophils Abs 0.1 0.0 - 0.1 [facility] x10(3)/[facility] LABORATORY Immature Gran % 0.40 % [facility]BS [...] Organization Address City/State/[place] [address] (ABNORMAL) Hemogram (08/09/2017 1:10 AM EST) Analysis Performed At Patho logist Time Signature WBC 11.3 (H) 4.0 - 9.5 [facility] x10(3)/[facility] LABORATORY RBC 3.47 (L) 4.58 - [facility] [address] [facility] x10(6)/[facility] LABORATORY Hemoglobin 10.0 (L) 13.7 - [facility] 16.5 gm/dL [facility]OR[facility] Hematocrit 31.9 (L) 40.5 - [facility] 48.5 % [facility] MCV 91.9 82.9 - [facility] 93.1 [facility] LABORATORY MCH 28.8 27.5 - [facility] 32.1 pg [facility] MCHC 31.3 (L) 32.0 - [facility] 35.7 gm/dL [facility] Platelets 234 145 - 357 [facility] x10(3)/[facility] LABORATORY RDWSD 54.0 (H) 36.0 - [facility] SU 45.0 [facility] LABORATORY RDWCV 16.2 (H) 11.4 - [facility] SU 13.8 % [facility]AT[facility] MPV 8.7 7.6 - 12.9 [facility] LABORATORY nRBC % Auto 0.0 % [facility] LABORATORY nRBC Abs Auto 0.000 0.000 - [facility] SU 0.[address] [facility] x10(3)/[facility] LABORATORY Specimen Anatomical Collection Method Collection Time Receive d Time (Source) Location / / Volume Laterality Blood specimen 08/09/2017 1:10 AM 018 1:19 (specimen) EST AM EST Resulting Agency Comment Spec In Lab Yonathan Smith MD HEMATOLOGY ORDERABLES Performing Organization Address City/[facility]/[place] [address] (ABNORMAL) Prothrombin Time (08/09/2017 1:10 AM EST) P athologist Signature PT 16.0 (H) 11.8 - 14.0 [facility] [...] [facility]/[place] [address] (ABNORMAL) Basic Metabolic Panel (non-fasting) (08/09/2017 1:10 AM EST) P athologist Signature Glucose Lvl 108 65 - 199 [facility] mg/dL [facility]ORAT[facility] Comment: [...] CENTER LABORATORY Estimated GFR 45 (L) >=60 [facility] LABORATORY Comment: The reported eGFR should be multiplied b y 1.2 for patients. The MDRD is not an appropriate measure o f renal function for patients with body mass extremes or in patients with acute kidney failure. http://[employer]/DHnkdep http://[employer]/DHMCnkf Specimen Anatomical Collection Method Collection Time Receive d Time (Source) Location / / Volume Laterality Blood specimen 08/09/2017 1:10 AM 018 1:19 (specimen) EST AM EST Resulting Agency Comment Spec In Lab Yonathan Smith MD CHEMISTRY ORDERABLES Performing Organization Address City/State/ZIP Code Phon e Number [address] POCT Glucose (08/09/2017 12:05 AM EST) athologist Signature POC Glucose 128 65 - 199 [facility] mg/dL [facility] Comment: Supplemental ranges: <140 mg/dL before meals <180 mg/dL all other times of the day Specimen Anatomical Collection Method Collection Time Receive d Time (Source) Location / / Volume Laterality Blood specimen 08/09/2017 12:05 8 (specimen) AM EST 12:05 AM EST Yonathan Smith MD POINT OF CARE TEST ORDERABLE S Performing Organization Address City/[facility]/[place] [address] (ABNORMAL) POCT Glucose (08/08/2017 7:36 PM EST) athologist Signature POC Glucose 215 (H) 65 - 199 [facility] mg/dL [facility] Comment: Supplemental ranges: <140 mg/dL before meals <180 mg/dL all other times of the day Specimen Anatomical Collection Method Collection Time Receive d Time (Source) Location / / Volume Laterality Blood specimen 08/08/2017 7:36 PM 018 7:36 (specimen) EST PM EST Yonathan Smith MD POINT OF CARE TEST ORDERABLE S Performing Organization Address City/State/[place] [address] (ABNORMAL) POCT Glucose (08/08/2017 6:23 PM EST) P athologist Signature POC Glucose 216 (H) 65 - 199 [facility] mg/dL [facility] Comment: Supplemental ranges: <140 mg/dL before meals <180 mg/dL all other times of the day Specimen Anatomical Collection Method Collection Time Receive d Time (Source) Location / / Volume Laterality Blood specimen 08/08/2017 6:23 PM 018 6:23 (specimen) EST PM EST Yonathan Smith MD POINT OF CARE TEST ORDERABLE S Performing Organization Address City/[facility]/[place] [address] (ABNORMAL) APTT (08/08/2017 6:00 [...] [facility]/[place] [address] POCT Glucose (08/08/2017 4:42 PM EST) athologist Signature POC Glucose 78 65 - 199 [facility] mg/dL [facility] Comment: Supplemental ranges: <140 mg/dL before meals <180 mg/dL all other times of the day Specimen Anatomical Collection Method Collection Time Receive d Time (Source) Location / / Volume Laterality Blood specimen 08/08/2017 4:42 PM 018 4:42 (specimen) EST PM EST Yonathan Smith MD POINT OF CARE TEST ORDERABLE S Performing Organization Address City/State/[place] [address] (ABNORMAL) POCT Glucose (08/08/2017 4:01 PM EST) athologist Signature POC Glucose 58 (L) 65 - 199 [facility] mg/dL [facility] Comment: Supplemental ranges: <140 mg/dL before meals <180 mg/dL all other times of the day Specimen Anatomical Collection Method Collection Time Receive d Time (Source) Location / / Volume Laterality Blood specimen 08/08/2017 4:01 PM 018 4:01 (specimen) EST PM EST Yonathan Smith MD POINT OF CARE TEST ORDERABLE S Performing Organization Address City/State/[place] [address] POCT Glucose (08/08/2017 11:51 AM EST) athologist Signature POC Glucose 90 65 - 199 [facility] mg/dL [facility] Comment: Supplemental ranges: <140 mg/dL before meals <180 mg/dL all other times of the day Specimen Anatomical Collection Method Collection Time Receive d Time (Source) Location / / Volume Laterality Blood specimen 08/08/2017 11:51 8 (specimen) AM EST 11:51 AM EST Yonathan Smith MD POINT OF CARE TEST ORDERABLE S Performing Organization Address City/State/[place] [address] (ABNORMAL) APTT (08/08/2017 10:27 [...] Address City/State/ZIP Code Phon e Number [address] POCT Glucose (08/08/2017 8:02 AM EST) athologist Signature POC Glucose 178 65 - 199 [facility] mg/dL [facility] Comment: Supplemental ranges: <140 mg/dL before meals <180 mg/dL all other times of the day Specimen Anatomical Collection Method Collection Time Receive d Time (Source) Location / / Volume Laterality Blood specimen 08/08/2017 8:02 AM 018 8:02 (specimen) EST AM EST Yonathan Smith MD POINT OF CARE TEST ORDERABLE S Performing Organization Address City/[facility]/[place] [address] (ABNORMAL) APTT (08/08/2017 4:51 AM EST) athologist Signature PTT >160 25 - 35 [facility] (Critical) sec [facility] Comment: Called by: HOWARD, Read back [...] Organization Address City/State/[place] [address] (ABNORMAL) Differential, Automated (08/08/2017 4:51 AM EST) [facility] [facility] Method Time Signature Neutrophils % 77.9 % [facility] Neutr Abs (ANC) 8.17 (H) 1.70 - [facility] 6.[address] [facility] x10(3)/[facility] LABORATORY Lymphocytes % 10.3 % [facility] Lymphocytes Abs 1.1 0.9 - 3.2 [facility] x10(3)/[facility] LABORATORY Monocytes % 7.0 % [facility] Monocyte Abs 0.7 0.3 - 0.9 [facility] x10(3)/[facility] LABORATORY Eosinophils % 3.6 % [facility] Eosinophils Abs 0.4 0.0 - 0.4 [facility] x10(3)/[facility] LABORATORY Basophils % 0.5 % [facility] Basophils Abs 0.0 0.0 - 0.1 [facility] x10(3)/[facility] LABORATORY Immature Gran % 0.70 % [facility] [...] Organization Address City/State/[place] [address] (ABNORMAL) Hemogram (08/08/2017 4:51 AM EST) Analysis Performed At Patho logist Time Signature WBC 10.5 (H) 4.0 - 9.5 [facility] LABORATORY RBC 3.27 (L) 4.58 - [facility] [address] [facility] x10(6)/[facility] LABORATORY Hemoglobin 9.3 (L) 13.7 - [facility] 16.5 gm/dL [facility] Hematocrit 30.3 (L) 40.5 - [facility] 48.5 % [facility] MCV 92.7 82.9 - [facility] 93.1 [facility] LABORATORY MCH 28.4 27.5 - [facility] 32.1 pg [facility] MCHC 30.7 (L) 32.0 - [facility] 35.7 gm/dL [facility] Platelets 252 145 - 357 [facility] x10(3)/[facility] LABORATORY RDWSD 54.6 (H) 36.0 - [facility] 45.0 [facility] LABORATORY RDWCV 16.2 (H) 11.4 - [facility] 13.8 % [facility] MPV 9.1 7.6 - 12.9 [facility] LABORATORY nRBC % Auto 0.0 % [facility] nRBC Abs Auto 0.000 0.000 - [facility] 0.[address] [facility] x10(3)/[facility] LABORATORY Specimen Anatomical Collection Method Collection Time Receive d Time (Source) Location / / Volume Laterality Blood specimen 08/08/2017 4:51 AM 018 5:14 (specimen) EST AM EST Resulting Agency Comment Spec In Lab Yonathan Smith MD HEMATOLOGY ORDERABLES Performing Organization Address City/State/[place] [address] (ABNORMAL) Prothrombin Time (08/08/2017 4:51 AM EST) P athologist Signature PT 18.1 (H) 11.8 - 14.0 [facility] LABORATORY INR 1.5 (H) 0.9 [...] Organization Address City/State/[place] [address] (ABNORMAL) Basic Metabolic Panel (non-fasting) (08/08/2017 4:51 AM EST) athologist Signature Glucose Lvl 229 (H) 65 - 199 [facility] mg/dL [facility] Comment: [...] CENTER LABORATORY Estimated GFR 44 (L) >=60 [facility] Comment: The reported eGFR should be multiplied b y 1.2 for patients. The MDRD is not an appropriate measure o f renal function for patients with body mass extremes or in patients with acute kidney failure. http://AMVONET/DHnkdep http://AMVONET/DHMCnkf Specimen Anatomical Collection Method Collection Time Receive d Time (Source) Location / / Volume Laterality Blood specimen 08/08/2017 4:51 AM 018 5:14 (specimen) EST AM EST Resulting Agency Comment Spec In Lab Yonathan Smith MD CHEMISTRY ORDERABLES Performing Organization Address City/[facility]/ZIP Code Phon e Number [address] POCT Glucose (08/08/2017 4:20 AM EST) athologist Signature POC Glucose 193 65 - 199 [facility] mg/dL [facility] Comment: Supplemental ranges: <140 mg/dL before meals <180 mg/dL all other times of the day Specimen Anatomical Collection Method Collection Time Receive d Time (Source) Location / / Volume Laterality Blood specimen 08/08/2017 4:20 AM 018 4:20 (specimen) EST AM EST Yonathan Smith MD POINT OF CARE TEST ORDERABLE S Performing Organization Address City/State/ZIP Code Phon e Number [address] POCT Glucose (08/07/2017 11:11 PM EST) athologist Signature POC Glucose 124 65 - 199 [facility] mg[facility]dL [facility] Comment: Supplemental ranges: <140 mg/dL before meals <180 mg/dL all other times of the day Specimen Anatomical Collection Method Collection Time Receive d Time (Source) Location / / Volume Laterality Blood specimen 08/07/2017 11:11 8 (specimen) PM EST 11:11 PM EST Yonathan Smith MD POINT OF CARE TEST ORDERABLE S Performing Organization Address City/[facility]/[place] [address] (ABNORMAL) APTT (08/07/2017 10:18 [...] [facility] [place] [address] POCT Glucose (08/07/2017 8:10 PM EST) athologist Signature POC Glucose 140 65 - 199 [facility] mg/dL [facility] Comment: Supplemental ranges: <140 mg/dL before meals <180 mg/dL all other times of the day Specimen Anatomical Collection Method Collection Time Receive d Time (Source) Location / / Volume Laterality Blood specimen 08/07/2017 8:10 PM 018 8:10 (specimen) EST PM EST Yonathan Smith MD POINT OF CARE TEST ORDERABLE S Performing Organization Address City/[facility]/[place] [address] POCT Glucose (08/07/2017 5:27 PM EST) athologist Signature POC Glucose 187 65 - 199 [facility] mg/dL [facility] Comment: Supplemental ranges: <140 mg/dL before meals <180 mg/dL all other times of the day Specimen Anatomical Collection Method Collection Time Receive d Time (Source) Location / / Volume Laterality Blood specimen 08/07/2017 5:27 PM 018 5:27 (specimen) EST PM EST Yonathan Smith MD POINT OF CARE TEST ORDERABLE S Performing Organization Address City/[facility]/[place] [address] POCT Glucose (08/07/2017 3:29 PM EST) athologist Signature POC Glucose 86 65 - 199 [facility]dL [facility] Comment: Supplemental ranges: <140 mg/dL before meals <180 mg/dL all other times of the day Specimen Anatomical Collection Method Collection Time Receive d Time (Source) Location / / Volume Laterality Blood specimen 08/07/2017 3:29 PM 018 3:29 (specimen) EST PM EST Yonathan Smith MD POINT OF CARE TEST ORDERABLE S Performing Organization Address [facility]/ZIP [facility] [place] [address] (ABNORMAL) APTT (08/07/2017 2:50 [...] Organization Address City/[facility]/ZIP [facility] Phon e Number [address] (ABNORMAL) POCT Glucose (08/07/2017 2:23 PM EST) athologist Signature POC Glucose 55 (L) 65 - 199 [facility] mg/dL [facility] Comment: Supplemental ranges: <140 mg/dL before meals <180 mg/dL all other times of the day Specimen Anatomical Collection Method Collection Time Receive d Time (Source) Location / / Volume Laterality Blood specimen 08/07/2017 2:23 PM 018 2:23 (specimen) EST PM EST Yonathan Smith MD POINT OF CARE TEST ORDERABLE S Performing Organization Address City/State/ZIP Code Phon e Number [address] POCT Glucose (08/07/2017 12:08 PM EST) P athologist Signature POC Glucose 77 65 - 199 [facility] mg/dL [facility] Comment: Supplemental ranges: <140 mg/dL before meals <180 mg/dL all other times of the day Specimen Anatomical Collection Method Collection Time Receive d Time (Source) Location / / Volume Laterality Blood specimen 08/07/2017 12:08 8 (specimen) PM EST 12:08 PM EST Yonathan Smith MD POINT OF CARE TEST ORDERABLE S Performing Organization Address City/State/ZIP Code Phon e Number [address] (ABNORMAL) Differential, Automated (08/07/2017 7:30 AM EST) Patholo gist Method Time Signature Neutrophils % 73.8 % [facility] Neutr Abs (ANC) 7.17 (H) 1.70 - [facility] 6.[address] [facility] x10(3)/[facility] LABORATORY Lymphocytes % 12.2 % [facility] Lymphocytes Abs 1.2 0.9 - 3.2 [facility] x10(3)/[facility] LABORATORY Monocytes % 9.0 % [facility] Monocyte Abs 0.9 0.3 - 0.9 [facility] x10(3)/[facility] LABORATORY Eosinophils % 3.9 % [facility] Eosinophils Abs 0.4 0.0 - 0.4 [facility] x10(3)/[facility] LABORATORY Basophils % 0.6 % [facility] Basophils Abs 0.1 0.0 - 0.1 [facility] x10(3)/[facility] LABORATORY Immature Gran % 0.50 % [facility] [...] Organization Address City/State/[place] [address] (ABNORMAL) Hemogram (08/07/2017 7:30 AM EST) Analysis Performed At Patho logist Time Signature WBC 9.7 (H) 4.0 - 9.5 [facility] x10(3)/[facility] LABORATORY RBC 3.54 (L) 4.58 - [facility] 5.[address] [facility] x10(6)/[facility] LABORATORY Hemoglobin 9.9 (L) 13.7 - [facility] 16.5 gm/dL [facility] Hematocrit 32.3 (L) 40.5 - [facility] 48.5 % [facility] MCV 91.2 82.9 - [facility] 93.1 [facility] LABORATORY MCH 28.0 27.5 - [facility] 32.1 pg [facility] MCHC 30.7 (L) 32.0 - [facility] 35.7 gm/dL [facility] Platelets 312 145 - 357 [facility] x10(3)/[facility] LABORATORY RDWSD 53.2 (H) 36.0 - [facility] 45.0 [facility] LABORATORY RDWCV 16.0 (H) 11.4 - [facility] 13.8 % [facility] MPV 8.9 7.6 - 12.9 [facility] LABORATORY nRBC % Auto 0.0 % [facility] nRBC Abs Auto 0.000 0.000 - [facility] 0.[address] [facility] x10(3)/[facility] LABORATORY Specimen Anatomical Collection Method Collection Time Receive d Time (Source) Location / / Volume Laterality Blood specimen 08/07/2017 7:30 AM 018 7:45 (specimen) EST AM EST Resulting Agency Comment Spec In Lab Yonathan Smith MD HEMATOLOGY ORDERABLES Performing Organization Address City/State/[place] [address] (ABNORMAL) Basic Metabolic Panel (non-fasting) (08/07/2017 7:30 AM EST) P athologist Signature Glucose Lvl 80 65 - 199 [facility] mg/dL [facility] Comment: [...] CENTER LABORATORY Estimated GFR 59 (L) >=60 [facility]ORY Comment: The reported eGFR should be multiplied b y 1.2 for patients. The MDRD is not an appropriate measure o f renal function for patients with body mass extremes or in patients with acute kidney failure. http://AMVONET/DHnkdep http://AMVONET/DHMCnkf Specimen Anatomical Collection Method Collection Time Receive d Time (Source) Location / / Volume Laterality Blood specimen 08/07/2017 7:30 AM 018 7:45 (specimen) EST AM EST Resulting Agency Comment Spec In Lab Yonathan Smith MD CHEMISTRY ORDERABLES Performing Organization Address City/[facility] Phon e Number [address] POCT Glucose (08/07/2017 7:27 AM EST) athologist Signature POC Glucose 81 65 - 199 [facility] mg/dL [facility] Comment: Supplemental ranges: <140 mg/dL before meals <180 mg/dL all other times of the day Specimen Anatomical Collection Method Collection Time Receive d Time (Source) Location / / Volume Laterality Blood specimen 08/07/2017 7:27 AM 018 7:27 (specimen) EST AM EST Yonathan Smith MD POINT OF CARE TEST ORDERABLE S Performing Organization Address [facility] Phon e Number [address] APTT (08/07/2017 7:04 AM [...] [facility]/[place] [address] (ABNORMAL) Prothrombin Time (08/07/2017 7:04 AM EST) athologist Signature PT 17.3 (H) 11.8 - 14.0 [facility] LABORATORY INR 1.4 (H) 0.9 [...] Organization Address City/State/[place] [address] POCT Glucose (08/07/2017 4:03 AM EST) athologist Signature POC Glucose 93 65 - 199 [facility] mg/dL [facility] Comment: Supplemental ranges: <140 mg/dL before meals <180 mg/dL all other times of the day Specimen Anatomical Collection Method Collection Time Receive d Time (Source) Location / / Volume Laterality Blood specimen 08/07/2017 4:03 AM 018 4:03 (specimen) EST AM EST Yonathan Smith MD POINT OF CARE TEST ORDERABLE S Performing Organization Address City/State/[place] [address] POCT Glucose (08/07/2017 12:04 AM EST) athologist Signature POC Glucose 107 65 - 199 [facility] mg/dL [facility] Comment: Supplemental ranges: <140 mg/dL before meals <180 mg/dL all other times of the day Specimen Anatomical Collection Method Collection Time Receive d Time (Source) Location / / Volume Laterality Blood specimen 08/07/2017 12:04 8 (specimen) AM EST 12:04 AM EST Yonathan Smith MD POINT OF CARE TEST ORDERABLE S Performing Organization Address City/State/ZIP Code Phon e Number [address] POCT Glucose (08/06/2017 7:56 PM EST) P athologist Signature POC Glucose 178 65 - 199 [facility] mg/dL [facility] Comment: Supplemental ranges: <140 mg/dL before meals <180 mg/dL all other times of the day Specimen Anatomical Collection Method Collection Time Receive d Time (Source) Location / / Volume Laterality Blood specimen 08/06/2017 7:56 PM 018 7:56 (specimen) EST PM EST Yonathan Smith MD POINT OF CARE TEST ORDERABLE S Performing Organization Address City/State/ZIP Code Phon e Number [address] [id number] (08/06/2017 2:32 PM EST) Component Value Ref Test Analysis Performed At Patholo gist Range Method Time Signature VB Text Department: Vascular Surgery Lab VASCUBASE Report Patient: [id number] (GREGORY HOANG) CPT: 8006358 ICD10: I99.8 Referring Physician: YONATHAN SMITH ?? [...] Mcgrath RN) 0807 (Given - Provider: Chiquis Mcgarth RN) 0800 (G iven - Provider: Dory [...] Mcgrath RN) 0631 (Given - Provider: Mira Turong, RN) 5 mL, Intravenous, EVERY 12 HOURS, [...] 0454 (Given - P rovider: Henrique Marks RN)0890 (Given - Provider: Chiquis Mcgrath RN)1135 (Given [...]
Routine documented in this encounter Care Teams Steam Finisher Relationship Specialty Start Date End Date Lovely Vicente MD PCP - General 04/16/[address] [place] [address] [address] [place] [address] documented as of this encounter
--- OUTSIDE RECORDS SUMMARY | 2022-04-15 08:19 | XMS_ITS | Encounter Summary ---
:1945 Author Organization [facility] [address] Care Team Providers Name Role Phone Lovely Vicente MD Primary Care Provider Reason for Visit Reason Comments Follow-up Encounter Details Date Type Department Care Team Description 08/19/2017 Office Visit Cardiac Surgery at [facility], Jock S/P C ABG ([facility], artery bypass graft) [facility] [place] [place] [id number] SURGERY [phone] [place], [place] [address] Social History Tobacco [...] office. Best personal regards, Yuan [facility] MD [phone] documented in this encounter Plan of Treatment Upcoming Encounters Date Type Specialty Care Team Description 05/28/2022 Appointment Cardiology Zulma Dolan MD [facility] er [address] [place] [address] (Wo rk) 05/28/2022 Laboratory Appointment Lab 05/28/2022 Office Visit Cardiology Zulma Dolan MD [facility] [place] [address] Liz Poole PA [facility] [place] [address] 06/10/2022 Office Visit Dermatology Laura Scherer MD [facility] ER [address] [address] (Wo rk) documented as of this encounter [...] 454 ms MUSE SYSTEM (Bezet) Calculated P [place] 20 degrees MUSE SYSTEM Calculated R [place] -29 degrees MUSE SYSTEM Calculated T [place] 121 degrees MUSE SYSTEM INTERPRETATION Normal sinus rhythm MUSE SYSTEM 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
--- OUTSIDE RECORDS SUMMARY | 2022-04-15 08:20 | XMS_ITS | Encounter Summary ---
:1945 Author Organization [facility] [place] [address] Care Team Providers Name Role Phone Lovely Vicente MD Primary Care Provider Encounter Details Date Type Department Care Team Description 08/09/2017 Clinical Support Same Day at [facility] Canceled (D-SCHED ERROR [facility] / CORRECT ION ) [place] [address] Social History Tobacco Use Types Packs/Day [...] [facility] [place] [address] (Wo rk) 05/28/2022 Laboratory Appointment Lab 05/28/2022 Office Visit Cardiology Zulma Dolan MD [facility] [place] [address] Liz Poole PA [facility] [place] [address] 06/10/2022 Office Visit Dermatology Laura Scherer MD [facility] [address] [place], [place] [address] (Wo rk) documented as of this encounter Procedures Procedure Name Priority Date/Time Associated Diagnosis Comme nts CURAM DEVELOPER 08/09/2017 12:00 AM Resul ts for this SCAN EST procedure are i n the results section. documented in this encounter Results SCAN DOC: CURAM DEVELOPER (08/09/2017 12:00 AM EST) Narrative 08/09/2017 12:00 AM EST This result has an attachment that is no t available. Ordered by an unspecified provider. Scanning Provider MEDIA MGR SCAN EXT ORDR/RSLT documented in this encounter Visit Diagnoses Not on filedocumented in this encounter Care Teams Director Business Relationship Specialty Start Date End Date Lovely Vicente MD PCP - General 04/16/[address] [place] [address] documented as of this encounter
--- OUTSIDE RECORDS SUMMARY | 2022-04-15 08:20 | XMS_ITS | Encounter Summary ---
:1945 Author Organization [facility] [place] [address] Care Team Providers Name Role Phone Lovely Vicente MD Primary Care Provider Reason for Visit Auth/Cert Specialty Diagnoses / Procedures Referred By Contact Refer red To Contact Diagnoses Critical lower limb ischemia CELLULITIS RT FOOT Procedures EMERGENCY Referral ID Status Reason Start Date Expiration Date Visits Requ ested Visits Authorized [id number] 1 1 Encounter Details Date Type Department Care Team Description 08/11/2017 Surgery Main Operating Room Yonathan Smith (M SURG) DRESSING CHANGE Barbara Ocampo MD (FOR OTHER THAN IVAN) [facility] UNDER ANES. 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 Patient [...] Dorsalis Pedis (Ankle) Artery ?132 ? 0.94 ??[place]iphas[place] ? Posterior Tibial (Ankle) Artery ??154 ? 1.10 ??[place]iphas[place] ? Fourth Toe ? 67 ?0.48 ?? [...] For any problems or questions please call [phone] ZELDA Smith, appointment coordinator Nurse Clinician For issues on weeknights after 5pm and weekends please call [phone] and ask for the Vascular Fellow vision mixer. General Instructions None Future Appointments and Orders Future Appointments Provider Department Dept Phone 08/26/2017 4:00 PM Aurelia Rivera PA [facility] [place] [phone] 09/07/2017 3:00 PM LAB, THREE L Lab 3L [facility] [phone] 09/07/2017 4:00 PM Luz Prescott MD [facility]ocrinology [facility] [place] [phone] 09/09/2017 8:00 AM Barbra Soares APRN [facility] Management [facility] [place] [phone] Please bring a list of your current [...] For any problems or questions please call [phone] ZELDA Smith, appointment coordinator Nurse Clinician For issues on weeknights after 5pm and weekends please call [phone] and ask for the Vascular Fellow vision mixer. documented in this encounter Medications at Time [...] Note Patient Destination: [facility] ([facility]) [address] [place] [id number] Transportation: with (at bedside) Time of Discharge: by 12 noon Level of Care: swing Patient Aware: yes Family Notified: yes Md to call report to: Yissel Quintero PRINTING SIGN MACHINE OPERATOR already called RN to call report to: [phone] Shirin Wolf Office of Care Management Pager [phone] Shirin Wagner RN - 08/16/2017 10:50 AM EST [facility] has offered pt swing bed. Pt and accept bed. will transport via car. PRINTING SIGN MACHINE OPERATOR Yissel Quintero aware; d/c paperwork will be completed by 12 noon. [facility] requests pt arrival by 1400 today; PRINTING SIGN MACHINE OPERATOR, RN, and family aware. PRINTING SIGN MACHINE OPERATOR called [facility] and was told that they prefer pt to arrive with wound vac dressing applied but clamped. PRINTING SIGN MACHINE OPERATOR applied new wound vac dressing. RN has [facility] number to call report. PASSR completed; PRINTING SIGN MACHINE OPERATOR paged to request provider signature in highlighted space. Indigo from [facility] notified via email that home wound vac now cancelled; [facility] has picked up from room and order cancelled. Packet started and provided to rn intensive care unit. Medicare important message explained to patient, patient signed. Copy provided to patient and signature page to OCM for inclusion in pt EMR. Radha Georges - 08/16/2017 10:34 AM EST Office of Care Management/Sales Promotion Director Patient Name: Gregory Hoang : 1945 Patient has been offered a swing bed at [facility]. The patient will be transported by private transportation. No MD to MD report necessary Please call Nursing Report to [phone], ask for quantitative research analyst. Info to accompany patient: Narcotic Prescriptions Copies of Medication Administration Records and IV sheets for past 10 days. Plan: Sales Promotion Director will be available to the patient and Net Developer Programmer-RN and/or Stroke Coordinator for further assistance. Patient will be discharged to: [facility] [address] [place] [address] [id number] Radha Powers, Sales Promotion Director Mira Black, VAMSI - 08/15/2017 10:05 PM EST [address] Flores to ask if he wanted to hold metoprolol dose. BP 95/58. OK to hold this dose Courtney Brito - 08/15/2017 3:26 PM EST Office of Care Management(OCM)/Sales Promotion Director(RS)/ D/C Planning re : Patient is medically [...] status. 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 Vac [...] patient's referral to: [facility] PHONE: [phone] FAX: [phone] CM spoke with RS who said that [...] rehab. Await recommendations from PT. Covering pager #[phone]. 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 Metal Cans Supervisor Kaitlin Saha, RN Pager #[phone] Payam Rosales - 08/13/2017 2:37 PM EST Staff Reporter Encounter Note Patient Name: Gregory Hoang : [id number] MR#: [id number] Admit Date: 08/06/2017 1:41 PM Hospital Day 7 days Narrative: Visited to introduce and assess acceptance of Staff Reporter services. Pt was awake, alert, oriented and in chair and family was there. Assessment:Patient coping positively with stresses of illness/hospitalization at this time. Pt says that he is hoping to get better and his family was there. Pt says that he has family care and supportand taking one day at time. Intervention and Outcome: Provided emotional support and encouraging presence. 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 A letter describing our affiliations was reviewed with them and theywere educated about their right to choose where referrals are placed. Patient requests referral to [facility] [place]. PHONE: [phone] FAX: [phone]. And Home NPWT (Negative Pressure Wound Therapy) aka wound vac device made available to pt. Serial # confirmed. Reviewed [facility] Proof of Delivery/Assignment of Benefits Statement(POD/AOB) Form w patient or authorized agent signing on behalf of patient. Copy of POD/AOB provided to pt and other copy faxed to [employer] @ fax# [phone] Expected date of discharge: 08/12/2017. 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 Address: [address] [place] [address] [place] [address] (home) Mobile: Telephone Information: Referring Provider: No [...] 7.93) performed by Yuan Retana MD at [facility] OR ??? 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 Unsuccessful draw attempt, another yarn tester [facility] PTT test. 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 Vascular resident vision mixer and will forward result to the team prior to rounds. 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 Patient [...] blue toes with CTA showing R MANAGER NUCLEAR pseudoaneurysm (now thrombosed) and occluded ATs bilaterally. [...] 5. Completion RLE angiogram 6. L MANAGER NUCLEAR angiogram 7. 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 - L MANAGER NUCLEAR angriogram demonstrated: High femoral bifurcation over the proximal half of the femoral head. L MANAGER NUCLEAR access in the distal L MANAGER NUCLEAR. - Closure device: Mynx Technical Procedure: The [...] for a 45cm 5F Destination. V18 and Dorado and QuickCross catheters were used to select [...] A stationed picture of the L MANAGER NUCLEAR was performed as the patient was noted to have a very high bifurcation. Access appeared in the distal R MANAGER NUCLEAR. Closure and sheath removal was performed with [...] PM EST 1440 report called to 5 ludlow nurse Tessa AGUSTIN documented in this encounter Miscellaneous Notes Plan of Care - Dory Truong RN - 08/16/2017 10:51 AM EST Problem: Patient Care Overview Goal: Plan of Care Review Outcome: Outcome (s) achieved Date Met: 08/16/17 08/14/17 1939 08/16/17 6091 Coping/Psychosocial Plan Of Care Reviewed With -- [...] sit/sit to supine -- Bed Mobility Goal, Wilkinson Level independent -- Bed Mobility Goal, Date [...] days -- Transfer Training Goal, Activity Type gfe-tx-nmaaz/nzpqf-mj-tbv -- Transfer Train Goal, Wilkinson Level conditional independence -- Transfer Train Goal, [...] call cabello within reach, Hourly rounding by RN/TREE WORKER. Bed alarm / Chair alarm. Patient-specific [...] plan as documented. Op Note - Yonathan Smiht MD - 08/15/2017 6:28 PM EST [facility] [place] Patient Name: Gregory Hoang : [id number] MR#: [id number] Case Date: 08/09/2017 Surgeon: Surgeon(s) and Role: [...] 5. Completion RLE angiogram 6. L MANAGER NUCLEAR angiogram 7. Mynx closure Precautions/Restrictions: fall, sternal [...] other (see comments) (or swing bed) Pager: [phone] BASSAM ELIAS, PT 08/14/2017 Inpatient Physical Therapy [...] to Achieve by discharge Gait Training Goal, Wilkinson Level conditional independence;set up required Gait Training [...] spoke with [facility] KANWAL Sandhu RN who said that they do not anticipate any beds over the weekend. Reviewed with patient/ that they need to be aware that patient will need to take the first bed offered at the facilities that they make referrals to. Their choices are: 1- [facility] PHONE: [phone] FAX: [phone] 2- [facility] ([facility]) [address] [place] [address] 3- [facility]) [address] [place] [address] I have discussed Medicare/Private Insurance [...] RS/CM on Wednesday to follow-up. Covering pager #[phone] for today. Plan of Care - Henrique [...] additional findings of pseudoaneurysm on R MANAGER NUCLEAR and bilateral anterior tibial artery occlusions. Was [...] an outpatient once discharged. Have patient call [phone] to set up an appointment. Follow-up: Dermatology will sign-off for now. Please do not hesitate to contact us if you have any questions orconcerns. Impression and Recommendations discussed with primary team on 08/13/2017. Karo Henderson MD Resident in Dermatology Section of Dermatology, Department of Surgery [facility] Pager [phone] Patient seen and evaluated with staff Narcotics Detective: Halima Cordero MD Section of Dermatology [facility] Level of Resident Supervision: [...] 5. Completion RLE angiogram 6. L MANAGER NUCLEAR angiogram 7. Mynx closure Active Non-Hospital Problems [...] home with home health ([facility] PT[facility]) Pager: [phone] YASIR TELLO OT 08/12/2017 Occupational Therapy Rehabilitation [...] 5. Completion RLE angiogram 6. L MANAGER NUCLEAR angiogram 7. Mynx closure Past Medical History: [...] with 24/7 assistance and maximal services) Pager: [phone] NICHOLAS MORA, JESSIE 08/12/2017 Physical Therapy Rehabilitation [...] sit/sit to supine -- Bed Mobility Goal, Wilkinson Level independent -- Bed Mobility Goal, Outcome Achieved -- goal ongoing Goal: Gait Training Goal Stand Alone Therapy Goal Outcome: Ongoing (Interventions Implemented as Appropriate) 08/11/17 1310 08/12/17 1510 Gait Training Goal Gait Training Goal, Date Established 08/11/17 -- Gait Training Goal, Time to Achieve 5 - 7 days -- Gait Training Goal, Wilkinson Level conditional independence -- Gait Training Goal, [...] days -- Transfer Training Goal, Activity Type uzo-qj-vwrzv/jofdz-ap-poj -- Transfer Train Goal, Wilkinson Level conditional independence -- Transfer Training Goal, [...] - 08/11/2017 2:52 PM EST [facility] Operative Note Patient Name: Gregory Hoang : [id number] MR#: [id number] Case Date: 08/11/2017 Surgeon: Surgeon(s) and Role: [...] 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 Completion RLE angiogram 6. L MANAGER NUCLEAR angiogram 7. Mynx closure He is very [...] to sit/sit to supine Bed Mobility Goal, Wilkinson Level independent Goal: Gait Training Goal Stand Alone Therapy Goal Outcome: Ongoing (Interventions Implemented as Appropriate) 08/11/17 1310 Gait Training Goal Gait Training Goal, Date Established 08/11/17 Gait Training Goal, Time to Achieve 5 - 7 days Gait Training Goal, Wilkinson Level conditional independence Gait Training Goal, Assist [...] 7 days Transfer Training Goal, Activity Type pdv-sq-zmuwv/xxpjx-vt-xex Transfer Train Goal, Wilkinson Level conditional independence Plan of Care - [...] call cabello within reach, Hourly rounding by RN/TREE WORKER. Bed alarm / Chair alarm. ? [...] 30 Days: [facility] 07/20/2017 Anticipated Length Of Stay (If known): Expected Length of Hospitalization: 5-7 days2-3 days Current Decision-Making Capacity: Alert and oriented x 4 Advance Care Planning: on file Kisha Hoang [facility] [phone] Current Coping/Education/Information Needs: pt and spouse state [...] Health/Prescription Coverage: Primary Insurance: MEDICARE Secondary Insurance: [employer] [place] Prescription Coverage: See above Preferred Pharmacy: [facility] Other: N/A Primary Care Provider: Lovely Vicente MD [phone] Patient/Caregiver Goals of Treatment: Patient plans to [...] of care planning. Kaitlin Saha RN Pager: [phone] Plan of Care - Melba Jaramillo RN [...] as documented. Plan of Care - Chiquis cMgrath RN - 08/08/2017 7:03 PM EST Problem: [...] Overview Goal: Plan of Care Review 08/08/17 1074 Coping/Psychosocial Plan Of Care Reviewed With patient [...] call cabello within reach, Hourly rounding by RN/TREE WORKER. Bed alarm / Chair alarm. Patient-specific [...] personal objects within reach;BADL personal routines maintained Amrk Fall Risk History of Falling 25 [...] at bedside and MD TEAM Carrying pager [phone] contacted (via Radio page) and notified of [...] Cardiology Zulma Dolan MD [facility] [place], [place] [address] (Wo rk) 05/28/2022 Laboratory Appointment Lab 05/28/2022 Office Visit Cardiology Zulma Dolan MD [facility] [place] [address] Liz Poole PA [facility] [place] [address] 06/10/2022 Office Visit Dermatology Laura Scherer MD [facility] DR TEJA [address], [place] [address] (Wo rk) documented as of [...] 160 65 - 199 [place] mg/dL [facility] Comment: [...] City/State/[place] [address] (ABNORMAL) Differential, Automated (08/16/2017 5:08 AM EST) [facility] Method Time Signature Neutrophils % 73.9 % [facility] Neutr Abs (ANC) 5.37 1.70 - [facility] 6.10 [facility] x10(3)/[facility] LABORATORY Lymphocytes % 10.1 % [facility] Lymphocytes Abs 0.7 (L) 0.9 - 3.2 [facility] x10(3)/[facility] LABORATORY Monocytes % 10.1 % [facility] Monocyte Abs 0.7 0.3 - 0.9 [facility] x10(3)/[facility] LABORATORY Eosinophils % 5.1 % [facility] Eosinophils Abs 0.4 0.0 - 0.4 [facility] x10(3)/[facility] LABORATORY Basophils % 0.4 % [facility] Basophils Abs 0.0 0.0 - 0.1 [facility] x10(3)/[facility] LABORATORY Immature Gran % 0.40 % BAR[facility] [...] Melisa Gran Abs 0.03 0.00 - 0.04 x10(3)/[facility] LABORATORY Specimen Anatomical Collection Method Collection Time Receive d Time (Source) Location / / Volume Laterality Blood specimen 08/16/2017 5:08 AM 018 5:20 (specimen) EST AM EST Resulting Agency Comment Spec In Lab Yonathan Smith MD HEMATOLOGY ORDERABLES Performing Organization Address City/State/[place] [address] (ABNORMAL) Hemogram (08/16/2017 5:08 AM EST) Analysis Performed At Patho logist Time Signature WBC 7.3 4.0 - 9.5 [place] x10(3)/[facility] LABORATORY RBC 3.36 (L) 4.58 - [place] 5.54 [facility] x10(6)/[facility] LABORATORY Hemoglobin 9.7 (L) 13.7 - [facility] 16.5 gm/dL [facility] Hematocrit 30.3 (L) 40.5 - [place] 48.5 % [facility] MCV 90.2 82.9 - [facility] RYAN 93.1 [facility] LABORATORY MCH 28.9 27.5 - [place] 32.1 pg [facility] MCHC 32.0 32.0 - [place] 35.7 gm/dL [facility] Platelets 282 145 - 357 [facility] x[facility](3[facility] LABORATORY RDWSD 53.9 (H) 36.0 - [place] 45.0 [facility] LABORATORY RDWCV 16.5 (H) 11.4 - [place] 13.8 % [facility] MPV 9.0 7.6 - 12.9 [place] [facility] LABORATORY nRBC % Auto 0.0 % [facility] LABOR[facility]ORY nRBC Abs Auto 0.000 0.000 - [place] 0.000 [facility] x10(3)/[facility] LABORATORY Specimen Anatomical Collection Method Collection Time Receive d Time (Source) Location / / Volume Laterality Blood specimen 08/16/2017 5:08 AM 018 5:20 (specimen) EST AM EST Resulting Agency Comment Spec In Lab Yonathan Smith MD HEMATOLOGY ORDERABLES Performing Organization Address City/State/ZIP Code Phon e Number [place] [id number] [address]OS[address] (ABNORMAL) Basic Metabolic Panel (non-fasting) (08/16/2017 5:08 AM EST) P athologist Signature Glucose Lvl 141 65 - 199 [facility] mg/dL [facility] Comment: [...] or in patients with acute kidney failure. [email or web address] Specimen Anatomical Collection Method Collection Time Receive d Time (Source) Location / / Volume Laterality Blood specimen 08/16/2017 5:08 AM 018 5:20 (specimen) EST AM EST Resulting Agency Comment Spec In Lab Yonathan Smith MD CHEMISTRY ORDERABLES Performing Organization Address City/State/[place] [address] (ABNORMAL) Prothrombin Time (08/16/2017 [...] Smith MD HEMATOLOGY ORDERABLES Performing Organization Address City/[facility]/ZIP Code Phon e Number [address] POCT Glucose (08/16/2017 4:09 AM EST) athologist Signature POC Glucose 147 65 - 199 [facility] mg/dL [facility] Comment: Supplemental [...] Center & Hospital/ZIP Code Phon e Number [address] POCT Glucose (08/15/2017 11:56 PM EST) athologist Signature POC Glucose 176 65 - 199 [facility] mg/dL [facility] Comment: [...] Center & Hospital/ZIP Code Phon e Number [address] POCT Glucose (08/15/2017 8:05 PM EST) athologist Signature POC Glucose 136 65 - 199 [place] mg/dL [facility] Comment: [...] Organization Address City/State/[place] [address] (ABNORMAL) POCT Glucose (08/15/2017 4:50 PM EST) athologist Signature POC Glucose 232 (H) 65 - 199 [facility] mg/dL [facility] Comment: [...] Organization Address City/State/[place] [address] POCT Glucose (08/15/2017 12:04 PM EST) athologist Signature POC Glucose 135 65 - 199 [place] mg/dL [facility] Comment: [...] Organization Address City/State/Z[place] [address] POCT Glucose (08/15/2017 7:36 AM EST) P athologist Signature POC Glucose 124 65 - 199 [facility] mg/dL [facility] Comment: [...] City/State/[place] [address] (ABNORMAL) Differential, Automated (08/15/2017 6:22 AM EST) Patholo gist Method Time Signature Neutrophils % 76.1 % [facility] LABOR[facility]ORY Neutr Abs (ANC) 6.62 (H) 1.70 - [facility] 6.10 [facility] x10(3)/[facility] L LABORATORY Lymphocytes % 9.3 % [facility] LABORATORY Lymphocytes Abs 0.8 (L) 0.9 - 3.2 [facility] x10(3)/[facility] LABORATORY Monocytes % 9.4 % [facility] LABORATORY Monocyte Abs 0.8 0.3 - 0.9 [facility] x10(3)/[facility] LABORATORY Eosinophils % 4.0 % [facility] LABORATORY Eosinophils Abs 0.4 0.0 - 0.4 [facility] x10(3)/[facility] LABORATORY Basophils % 0.6 % [facility] LABORATORY Basophils Abs 0.0 0.0 - 0.1 [facility] x10(3)/[facility] LABORATORY Immature [...] City/State/[place] [address] (ABNORMAL) Hemogram (08/15/2017 6:22 AM EST) Analysis Performed At Patho logist Time Signature WBC 8.7 4.0 - 9.5 [facility] x10(3)/[facility] LABORATORY RBC 3.21 (L) 4.58 - [facility] 5.54 [facility] x10(6)/[facility] LABORATORY Hemoglobin 9.1 (L) 13.7 - [facility] 16.5 gm/dL [facility] Hematocrit 29.0 (L) 40.5 - [facility] 48.5 % [facility] MCV 90.3 82.9 - [facility] 93.1 [facility] LABORATORY MCH 28.3 27.5 - [facility] RYAN 32.1 pg [facility] MCHC 31.4 (L) 32.0 - [facility] 35.7 gm/dL [facility] Platelets 254 145 - 357 [facility] x10(3)/[facility] LABORATORY RDWSD 53.9 (H) 36.0 - [facility] [facility] 45.0 [facility] LABORATORY RDWCV 16.3 (H) 11.4 - [facility] RYAN 13.8 % [facility] LABORATORY MPV 8.8 7.6 - 12.9 [facility] LABORATORY nRBC % Auto 0.0 % [facility] LABORATORY nRBC Abs Auto 0.000 0.000 - [facility]AN 0.000 [facility] x10(3)/[facility] LABORATORY Specimen Anatomical Collection Method Collection Time Receive d Time (Source) Location / / Volume Laterality Blood specimen 08/15/2017 6:22 AM 018 6:33 (specimen) EST AM EST Resulting Agency Comment Spec In Lab Yonathan Smith MD HEMATOLOGY ORDERABLES Performing Organization Address City/State/[place] [address] (ABNORMAL) Basic Metabolic Panel (non-fasting) (08/15/2017 6:22 AM EST) P athologist Signature Glucose Lvl 118 65 - 199 [facility] mg/dL [facility] LABORATORY Comment: [...] [facility] Estimated GFR >60 >=60 [facility] LABORATORY Comment: The reported eGFR should be multiplied b y 1.2 for patients. The MDRD is not an appropriate measure o f renal function for patients with body mass extremes or in patients with acute kidney failure. [email or web address] [email or web address] Specimen Anatomical Collection Method Collection Time Receive d Time (Source) Location / / Volume Laterality Blood specimen 08/15/2017 6:22 AM 018 6:33 (specimen) EST AM EST Resulting Agency Comment Spec In Lab Yonathan Smith MD CHEMISTRY ORDERABLES Performing Organization Address City/State/[place] [address] (ABNORMAL) Prothrombin Time (08/15/2017 [...] Smith MD HEMATOLOGY ORDERABLES Performing Organization Address City/[facility]/[place]IP [place] [address] POCT Glucose (08/15/2017 4:33 AM EST) athologist Signature POC Glucose 164 65 - 199 [facility] LABORATORY Comment: Supplemental ranges: <140 mg/dL before meals <180 mg/dL all other times of the day Specimen Anatomical Collection Method Collection Time Receive d Time (Source) Location / / Volume Laterality Blood specimen 08/15/2017 4:33 AM 018 4:33 (specimen) EST AM EST Yonathan Smith MD POINT OF CARE TEST ORDERABLE S Performing Organization Address City/State/[place] [address] POCT Glucose (08/15/2017 12:12 AM EST) athologist Signature POC Glucose 89 65 - 199 [facility] LABORATORY Comment: [...] Organization Address City/State/[place] [address] (ABNORMAL) POCT Glucose (08/14/2017 8:07 PM EST) athologist Signature POC Glucose 204 (H) 65 - 199 [facility] mg/dL [facility] LABORATORY Comment: [...] Organization Address City/State/[place] [address] POCT Glucose (08/14/2017 5:11 PM EST) athologist Signature POC Glucose 174 65 - 199 [facility] mg/dL [facility] LABORATORY Comment: [...] Organization Address City/State/[place] [address] POCT Glucose (08/14/2017 12:10 PM EST) athologist Signature POC Glucose 141 65 - 199 [facility] mg/dL [facility] LABORATORY Comment: [...] Organization Address City/State/[place] [address] POCT Glucose (08/14/2017 8:07 AM EST) P athologist Signature POC Glucose 158 65 - 199 [facility] LABORATORY Comment: Supplemental ranges: <140 mg/dL before meals <180 mg/dL all other times of the day Specimen Anatomical Collection Method Collection Time Receive d Time (Source) Location / / Volume Laterality Blood specimen 08/14/2017 8:07 AM 018 8:07 (specimen) EST AM EST Yonathan Smith MD POINT OF CARE TEST ORDERABLE S Performing Organization Address City/State/[place] [address] (ABNORMAL) Differential, Automated (08/14/2017 4:52 AM EST) Patholo gist Method Time Signature Neutrophils % 78.6 % [facility] LABORATORY Neutr Abs (ANC) 7.70 (H) 1.70 - [facility] 6.10 [facility] x10(3)/[facility] L LABORATORY Lymphocytes % 7.8 % [facility] LABORATORY Lymphocytes Abs 0.8 (L) 0.9 - 3.2 [facility] x10(3)/[facility] LABORATORY Monocytes % 8.8 % [facility] LABORATORY Monocyte Abs 0.9 0.3 - 0.9 [facility] x10(3)/[facility] LABORATORY Eosinophils % 4.0 % [facility] LABORATORY Eosinophils Abs 0.4 0.0 - 0.4 [facility] x10(3)/[facility] LABORATORY Basophils % 0.5 % [facility] LABORATORY Basophils Abs 0.0 0.0 - 0.1 [facility] x10(3)/[facility] LABORATORY Immature [...] 0.00 - 0.04 x10(3)/[facility] LABORATORY Specimen Anatomical Collection Method Collection Time Receive d Time (Source) Location / / Volume Laterality Blood specimen 08/14/2017 4:52 AM 018 5:08 (specimen) EST AM EST Resulting Agency Comment Spec In Lab Yonathan Smith MD HEMATOLOGY ORDERABLES Performing Organization Address City/State/[place] [address] (ABNORMAL) Hemogram (08/14/2017 4:52 AM EST) Analysis Performed At Patho logist Time Signature WBC 9.8 (H) 4.0 - 9.5 [facility] x10(3)/[facility] LABORATORY RBC 3.32 (L) 4.58 - [facility] 5.54 [facility] x10(6)/[facility] LABORATORY Hemoglobin 9.5 (L) 13.7 - [facility] 16[facility] gm/dL [facility] LABORATORY Hematocrit 30.3 (L) 40.5 - [facility] 48.5 % [facility] LABORATORY MCV 91.3 82.9 - [facility] 93.1 [facility] LABORATORY MCH 28.6 27.5 - [facility] RYAN 32.1 pg [facility] LABORATORY MCHC 31.4 (L) 32.0 - [facility] 35.7 gm/dL [facility] LABORATORY Platelets 263 145 - 357 [facility] x10(3)/[facility] LABORATORY RDWSD 54.8 (H) 36.0 - [place] 45.0 [facility] LABORATORY RDWCV 16.5 (H) 11.4 - [facility] 13.8 % [facility] LABORATORY MPV 9.1 7.6 - 12.9 [facility] LABORATORY nRBC % Auto 0.0 % [facility] LABORATORY nRBC Abs Auto 0.000 0.000 - [facility] 0.000 [facility] x10(3)/[facility] LABORATORY Specimen Anatomical Collection Method Collection Time Receive d Time (Source) Location / / Volume Laterality Blood specimen 08/14/2017 4:52 AM 018 5:08 (specimen) EST AM EST Resulting Agency Comment Spec In Lab Yonathan Smith MD HEMATOLOGY ORDERABLES Performing Organization Address City/State/[place] [address] (ABNORMAL) Prothrombin Time (08/14/2017 [...] City/State/[place] [address] (ABNORMAL) Basic Metabolic Panel (non-fasting) (08/14/2017 4:52 AM EST) P athologist Signature Glucose Lvl 135 65 - 199 [facility] mg/dL [facility] LABORATORY Comment: [...] or in patients with acute kidney failure. [email or web address] [email or web address] AM [email or web address] Specimen Anatomical Collection Method Collection Time Receive d Time (Source) Location / / Volume Laterality Blood specimen 08/14/2017 4:52 AM 018 5:08 (specimen) EST AM EST Resulting Agency Comment Spec In Lab Yonathan Smith MD CHEMISTRY ORDERABLES Performing Organization Address City/State/[place] [address] POCT Glucose (08/14/2017 3:56 AM EST) P athologist Signature POC Glucose 135 65 - 199 [facility] mg/dL [facility] LABORATORY Comment: [...] Address City/State/ZIP Code Phon e Number [address] POCT Glucose (08/13/2017 11:13 PM EST) athologist Signature POC Glucose 118 65 - 199 [facility] mg/dL [facility] LABORATORY Comment: [...] [facility]/[place]IP [place] [address] (ABNORMAL) POCT Glucose (08/13/2017 8:08 PM EST) athologist Signature POC Glucose 204 (H) 65 - 199 [facility] mg/dL [facility] LABORATORY Comment: [...] Organization Address City/State/Z[place] [address] POCT Glucose (08/13/2017 4:02 PM EST) athologist Signature POC Glucose 145 65 - 199 [facility] mg/dL [facility] LABORATORY Comment: [...] Organization Address City/State/Z[place] [address] POCT Glucose (08/13/2017 11:31 AM EST) athologist Signature POC Glucose 179 65 - 199 [facility] LABORATORY Comment: [...] [facility]/[place] [address] (ABNORMAL) POCT Glucose (08/13/2017 10:16 AM EST) athologist Signature POC Glucose 211 (H) 65 - 199 [facility]dL [facility] LABORATORY Comment: [...] [facility] Hospital/[place] [address] JULIAN, legs, multiple levels (08/13/2017 7:42 AM EST) Component Value Ref Test Analysis Performed At Patholo gist Range Method Time Signature VB Text Department: Vascular Surgery Lab VASCUBASE Report Patient: [id number] (GREGORY HOANG) CPT: 42765 ICD10: I99.8 Referring Physician: YONATHAN SMITH ?? Indications: s/p R 1,2,3 toe amps with red left foot, need n ew baseline Diabetes mellitus: yes ICD10 Diagnosis Code: I99.8 Findings: Right ?Pressure (mm Hg) ?? JULIAN ??Waveform ?TBI ?? Brachial Artery ?138 ? Dorsalis Pedis (Ankle) Arter y ?132 ? 0.94 ??[place]- Biphasic ? Posterior Tibial (Ankle) Art anila ??154 ? 1.10 ??[place]-Biphasic ? Fourth Toe ? 67 ? 0.48 [...] Signature POC Glucose 156 65 - 199 [facility] mg/dL [facility] LABORATORY Comment: [...] City/State/ZIP Code Phon e Number [place] [id number] HOSPITAL LABORATORY Drive (ABNORMAL) Differential, Automated (08/13/2017 5:33 AM EST) [facility] Method Time Signature Neutrophils % 77.8 % [facility] LABORATORY Neutr Abs (ANC) 7.83 (H) 1.70 - [facility] 6.10 [facility] x10(3)/[facility] L LABORATORY Lymphocytes % 8.4 % [facility] LABORATORY Lymphocytes Abs 0.8 (L) 0.9 - 3.2 [facility] x10(3)/[facility] LABORATORY Monocytes % 8.3 % [facility] LABORATORY Monocyte Abs 0.8 0.3 - 0.9 [facility] x10(3)/[facility] LABORATORY Eosinophils % 4.6 % [facility] LABORATORY Eosinophils Abs 0.5 (H) 0.0 - 0.4 [facility] x10(3)/[facility] LABORATORY Basophils % 0.5 % [facility] LABORATORY Basophils Abs 0.0 0.0 - 0.1 [facility] x10(3)/[facility] LABORATORY Immature [...] 0.04 0.00 - 0.04 x10(3)/[facility] LABORATORY Specimen Anatomical Collection Method Collection Time Receive d Time (Source) Location / / Volume Laterality Blood specimen 08/13/2017 5:33 AM 018 6:04 (specimen) EST AM EST Resulting Agency Comment Spec In Lab Yonathan Smith MD HEMATOLOGY ORDERABLES Performing Organization Address City/State/[place] [address] (ABNORMAL) Hemogram (08/13/2017 5:33 AM EST) Analysis Performed At Patho logist Time Signature WBC 10.1 (H) 4.0 - 9.5 [facility] x10(3)/[facility] LABORATORY RBC 3.21 (L) 4.58 - [facility] 5.54 [facility] x10(6)/[facility] LABORATORY Hemoglobin 9.2 (L) 13.7 - [facility] 16.5 gm/dL [facility] LABORATORY Hematocrit 29.6 (L) 40.5 - [facility] 48.5 % [facility] LABORATORY MCV 92.2 82.9 - [facility] 93.1 [facility] LABORATORY MCH 28.7 27.5 - [facility] 32.1 pg [facility] LABORATORY MCHC 31.1 (L) 32.0 - [facility] 35.7 gm/dL [facility] LABORATORY Platelets 263 145 - 357 [facility] x10(3)/[facility] LABORATORY RDWSD 54.8 (H) 36.0 - [facility] 45.0 [facility] LABORATORY RDWCV 16.4 (H) 11.4 - [facility] 13.8 % [facility] LABORATORY MPV 9.2 7.6 - 12.9 [facility] LABORATORY nRBC % Auto 0.0 % [facility] LABORATORY nRBC Abs Auto 0.000 0.000 - [facility] 0.000 [facility] x10(3)/[facility] LABORATORY Specimen Anatomical Collection Method Collection Time Receive d Time (Source) Location / / Volume Laterality Blood specimen 08/13/2017 5:33 AM 018 6:04 (specimen) EST AM EST Resulting Agency Comment Spec In Lab Yonathan Smith MD HEMATOLOGY ORDERABLES Performing Organization Address City/State/[place] [address] (ABNORMAL) Prothrombin Time (08/13/2017 [...] City/State/[place] [address] (ABNORMAL) Basic Metabolic Panel (non-fasting) (08/13/2017 5:33 AM EST) athologist Signature Glucose Lvl 126 65 - 199 [facility] mg/dL [facility] LABORATORY Comment: [...] LABORATORY Estimated GFR >60 >=60 [facility] LABORATORY Comment: The reported eGFR should be multiplied b y 1.2 for patients. The MDRD is not an appropriate measure o f renal function for patients with body mass extremes or in patients with acute kidney failure. [email or web address] AM [email or web address] [email or web address] AM [email or web address] Specimen Anatomical Collection Method Collection Time Receive d Time (Source) Location / / Volume Laterality Blood specimen 08/13/2017 5:33 AM 018 6:04 (specimen) EST AM EST Resulting Agency Comment Spec In Lab Yonathan Smith MD CHEMISTRY ORDERABLES Performing Organization Address City/[facility]/ZIP Code Phon e Number [address] POCT Glucose (08/13/2017 4:29 AM EST) athologist Signature POC Glucose 111 65 - 199 [facility]/dL [facility] LABORATORY Comment: Supplemental [...] [facility] Hospital/ZIP Code Phon e Number [address] POCT Glucose (08/12/2017 11:28 PM EST) athologist Signature POC Glucose 164 65 - 199 [facility]dL [facility] LABORATORY Comment: [...] [facility] Hospital/Z[place] [address] (ABNORMAL) POCT Glucose (08/12/2017 7:40 PM EST) athologist Signature POC Glucose 209 (H) 65 - 199 [facility] mg/dL [facility] LABORATORY Comment: [...] Address City/State/ZIP Code Phon e Number [address] POCT Glucose (08/12/2017 4:24 PM EST) athologist Signature POC Glucose 161 65 - 199 [facility] mg/dL [facility] [...] Organization Address City/State/Z[place] [address] POCT Glucose (08/12/2017 12:00 PM EST) athologist Signature POC Glucose 167 65 - 199 [facility] mg/dL [facility] LABORATORY Comment: [...] Organization Address City/State/Z[place] [address] POCT Glucose (08/12/2017 7:25 AM EST) P athologist Signature POC Glucose 152 65 - 199 [facility] mg/dL [facility] LABORATORY Comment: [...] City/State/ZIP Code Phon e Number [place] [id number] HOSPITAL LABORATORY Drive (ABNORMAL) Differential, Automated (08/12/2017 6:29 AM EST) Patholo gist Method Time Signature Neutrophils % 78.7 % [facility] LABORATORY Neutr Abs (ANC) 7.94 (H) 1.70 - [facility] 6.10 [facility] x10(3)/[facility] LABORATORY Lymphocytes % 8.8 % [facility] LABORATORY Lymphocytes Abs 0.9 0.9 - 3.2 [facility] x10(3)/[facility] LABORATORY Monocytes % 7.8 % [facility] LABORATORY Monocyte Abs 0.8 0.3 - 0.9 [facility] x10(3)/[facility] LABORATORY Eosinophils % 3.9 % [facility] LABORATORY Eosinophils Abs 0.4 0.0 - 0.4 [facility] x10(3)/[facility] LABORATORY Basophils % 0.3 % [facility] LABORATORY Basophils Abs 0.0 0.0 - 0.1 [facility] x10(3)/[facility] LABORATORY Immature [...] City/State/[place] [address] (ABNORMAL) Hemogram (08/12/2017 6:29 AM EST) Analysis Performed At Patho logist Time Signature WBC 10.1 (H) 4.0 - 9.5 [facility] x10(3)/[facility] LABORATORY RBC 3.02 (L) 4.58 - [facility] 5.54 [facility] x10(6)/[facility] LABORATORY Hemoglobin 8.7 (L) 13.7 - [facility] 16.5 gm/dL [facility] LABORATORY Hematocrit 28.1 (L) 40.5 - [facility] 48.5 % [facility] LABORATORY MCV 93.0 82.9 - [facility] 93.1 [facility] LABORATORY MCH 28.8 27.5 - [facility] 32.1 pg [facility] LABORATORY MCHC 31.0 (L) 32.0 - [facility] 35.7 gm/dL [facility] LABORATORY Platelets 223 145 - 357 [facility] x10(3)/[facility] LABORATORY RDWSD 56.1 (H) 36.0 - [facility] RYAN 45.0 [facility] LABORATORY RDWCV 16.4 (H) 11.4 - [facility] RYAN 13.8 % [facility] LABORATORY MPV 9.0 7.6 - 12.9 [facility] LABORATORY nRBC % Auto 0.0 % [facility] LABORATORY nRBC Abs Auto 0.000 0.000 - [facility] 0.000 [facility] x10(3)/[facility] LABORATORY Specimen Anatomical Collection Method Collection Time Receive d Time (Source) Location / / Volume Laterality Blood specimen 08/12/2017 6:29 AM 018 6:38 (specimen) EST AM EST Resulting Agency Comment Spec In Lab Yonathan Smith MD HEMATOLOGY ORDERABLES Performing Organization Address City/[facility]/[place] [address] (ABNORMAL) Prothrombin Time (08/12/2017 [...] Organization Address City/State/[place] [address] (ABNORMAL) Basic Metabolic Panel (non-fasting) (08/12/2017 6:29 AM EST) athologist Signature Glucose Lvl 151 65 - 199 [facility] mg/dL [facility] LABORATORY Comment: [...] [facility] LAB[facility] Estimated GFR >60 >=60 [facility] LABORATORY Comment: The reported eGFR should be multiplied b y 1.2 for patients. The MDRD is not an appropriate measure o f renal function for patients with body mass extremes or in patients with acute kidney failure. [email or web address] AM [email or web address] [email or web address] AM [email or web address] Specimen Anatomical Collection Method Collection Time Receive d Time (Source) Location / / Volume Laterality Blood specimen 08/12/2017 6:29 AM 018 6:38 (specimen) EST AM EST Resulting Agency Comment Spec In Lab Yonathan Smith MD CHEMISTRY ORDERABLES Performing Organization Address City/[facility]/Z[place] [address] POCT Glucose (08/12/2017 4:08 AM EST) athologist Signature POC Glucose 181 65 - 199 [facility]/dL [facility] LABORATORY Comment: Supplemental [...] [facility] Hospital/[place] [address] (ABNORMAL) POCT Glucose (08/12/2017 12:17 AM EST) athologist Signature POC Glucose 221 (H) 65 - 199 [facility] mg/dL [facility] LABORATORY Comment: Supplemental [...] [facility] Hospital/[place] [address] (ABNORMAL) POCT Glucose (08/11/2017 8:52 PM EST) athologist Signature POC Glucose 221 (H) 65 - 199 [facility] mg/dL [facility] LABORATORY Comment: [...] [facility] Hospital/Z[place] [address] POCT Glucose (08/11/2017 5:59 PM EST) athologist Signature POC Glucose 169 65 - 199 [facility] mg/dL [facility] LABORATORY Comment: [...] Organization Address City/State/[place] [address] (ABNORMAL) POCT Glucose (08/11/2017 4:08 PM EST) athologist Signature POC Glucose 240 (H) 65 - 199 [facility] mg/dL [facility] LABORATORY Comment: [...] [facility] Hospital/ZIP Code Phon e Number [address] POCT Glucose (08/11/2017 12:04 PM EST) athologist Signature POC Glucose 182 65 - 199 [facility] LABORATORY Comment: [...] [facility] Hospital/ZIP Code Phon e Number [address] POCT Glucose (08/11/2017 7:31 AM EST) athologist Signature POC Glucose 156 65 - 199 [facility] mg/dL [facility] LABORATORY Comment: [...] [facility] Hospital/ZIP Code Phon e Number [address] (ABNORMAL) Differential, Automated (08/11/2017 6:16 AM EST) [facility] Method Time Signature Neutrophils % 83.7 % [facility] LABORATORY Neutr Abs (ANC) 10.76 (H) 1.70 - [facility] 6.10 [facility] x10(3)/[facility]PITAL L LABORATORY Lymphocytes % 6.0 % [facility] LABORATORY Lymphocytes Abs 0.8 (L) 0.9 - 3.2 [facility] x10(3)/[facility] LABORATORY Monocytes % 7.5 % [facility] LABORATORY Monocyte Abs 1.0 (H) 0.3 - 0.9 [facility] x10(3)/[facility] LABORATORY Eosinophils % 2.0 % [facility] LABORATORY Eosinophils Abs 0.3 0.0 - 0.4 [facility] x10(3)/[facility] LABORATORY Basophils % 0.3 % [facility] LABORATORY Basophils Abs 0.0 0.0 - 0.1 [facility] x10(3)/[facility] LABORATORY Immature [...] City/State/[place] [address] (ABNORMAL) Hemogram (08/11/2017 6:16 AM EST) Analysis Performed At Patho logist Time Signature WBC 12.9 (H) 4.0 - 9.5 [facility] x10(3)/[facility] LABORATORY RBC 3.28 (L) 4.58 - [facility] 5.54 [facility] x10(6)/[facility] LABORATORY Hemoglobin 9.5 (L) 13.7 - [facility] 16.5 gm/dL [facility] LABORATORY Hematocrit 29.8 (L) 40.5 - [facility] 48.5 % [facility] LABORATORY MCV 90.9 82.9 - [facility] RYAN 93.1 [facility] LABORATORY MCH 29.0 27.5 - [facility] 32.1 pg [facility] LABORATORY MCHC 31.9 (L) 32.0 - [facility] 35.7 gm/dL [facility] LABORATORY Platelets 236 145 - 357 [facility] x10(3)/[facility] LABORATORY RDWSD 53.5 (H) 36.0 - [facility] 45.0 [facility] LABORATORY RDWCV 16.3 (H) 11.4 - [facility] RYAN 13.8 % [facility] LABORATORY MPV 8.8 7.6 - 12.9 [facility] LABORATORY nRBC % Auto 0.0 % [facility] LABORATORY nRBC Abs Auto 0.000 0.000 - [facility] RYAN 0.000 [facility] x10(3)/[facility] LABORATORY Specimen Anatomical Collection Method Collection Time Receive d Time (Source) Location / / Volume Laterality Blood specimen 08/11/2017 6:16 AM 018 6:24 (specimen) EST AM EST Resulting Agency Comment Spec In Lab Yonathan Smith MD HEMATOLOGY ORDERABLES Performing Organization Address City/State/[place] [address] (ABNORMAL) Prothrombin Time (08/11/2017 [...] City/State/[place] [address] Basic Metabolic Panel (non-fasting) (08/11/2017 6:16 AM EST) P athologist Signature Glucose Lvl 139 65 - 199 [facility] mg/dL [facility] LABORATORY Comment: [...] [facility] LAB[facility]ORY Estimated GFR >60 >=60 [facility] LABORATORY Comment: The reported eGFR should be multiplied b y 1.2 for patients. The MDRD is not an appropriate measure o f renal function for patients with body mass extremes or in patients with acute kidney failure. http://[email or web address] Records/DHnkdep [email or web address] AM [email or web address] Specimen Anatomical Collection Method Collection Time Receive d Time (Source) Location / / Volume Laterality Blood specimen 08/11/2017 6:16 AM 018 6:24 (specimen) EST AM EST Resulting Agency Comment Spec In Lab Yonathan Smith MD CHEMISTRY ORDERABLES Performing Organization Address City/State/ZIP Code Phon e Number [address] POCT Glucose (08/11/2017 4:07 AM EST) athologist Signature POC Glucose 162 65 - 199 [place] mg/dL [facility] LABORATORY Comment: [...] Center & Hospital/ZIP Code Phon e Number [address] POCT Glucose (08/10/2017 11:59 PM EST) athologist Signature POC Glucose 166 65 - 199 [place] mg/dL [facility] LABORATORY Comment: [...] Address City/State/ZIP Code Phon e Number [address] POCT Glucose (08/10/2017 8:12 PM EST) athologist Signature POC Glucose 156 65 - 199 [place] mg/dL [facility] LABORATORY Comment: [...] City/State/ZIP Code Phon e Number [place] [id number] HOSPITAL LABORATORY Drive (ABNORMAL) POCT Glucose (08/10/2017 4:42 PM EST) P athologist Signature POC Glucose 211 (H) 65 - 199 [facility] LABORATORY Comment: Supplemental [...] Address City/State/ZIP Code Phon e Number [address] (ABNORMAL) Differential, Automated (08/10/2017 2:30 PM EST) Patholo gist Method Time Signature Neutrophils % 87.6 % [facility] LABORATORY Neutr Abs (ANC) 9.90 (H) 1.70 - [facility] 6.10 [facility] x10(3)/[facility] L LABORATORY Lymphocytes % 4.3 % [facility] LABORATORY Lymphocytes Abs 0.5 (L) 0.9 - 3.2 [facility] x10(3)/[facility] LABORATORY Monocytes % 6.0 % [facility] LABORATORY Monocyte Abs 0.7 0.3 - 0.9 [facility] x10(3)/[facility] LABORATORY Eosinophils % 1.1 % [facility] LABORATORY Eosinophils Abs 0.1 0.0 - 0.4 [facility] x10(3)/[facility] LABORATORY Basophils % 0.4 % [facility] LABORATORY Basophils Abs 0.0 0.0 - 0.1 [facility] x10(3)/[facility] LABORATORY Immature [...] City/State/[place] [address] (ABNORMAL) Hemogram (08/10/2017 2:30 PM EST) Analysis Performed At Patho logist Time Signature WBC 11.3 (H) 4.0 - 9.5 [facility] x10(3)/[facility] LABORATORY RBC 3.13 (L) 4.58 - [facility] 5.54 [facility] x10(6)/[facility] LABORATORY Hemoglobin 8.9 (L) 13.7 - [facility] 16[facility] gm/dL [facility] LABORATORY Hematocrit 28.4 (L) 40.5 - [facility] 48.5 % [facility] LABORATORY MCV 90.7 82.9 - [facility] 93.1 [facility] LABORATORY MCH 28.4 27.5 - [facility] 32.1 pg [facility] LABORATORY MCHC 31.3 (L) 32.0 - [facility] 35.7 gm/dL [facility] LABORATORY Platelets 213 145 - 357 [facility] x10(3)/[facility] LABORATORY RDWSD 53.7 (H) 36.0 - [facility] RYAN 45.0 [facility] LABORATORY RDWCV 16.4 (H) 11.4 - [facility] RYAN 13.8 % [facility] LABORATORY MPV 8.9 7.6 - 12.9 [facility] LABORATORY nRBC % Auto 0.0 % [facility] LABORATORY nRBC Abs Auto 0.000 0.000 - [facility] Xylo 0.000 [facility] x10(3)/[facility] LABORATORY Specimen Anatomical Collection Method Collection Time Receive d Time (Source) Location / / Volume Laterality Blood specimen 08/10/2017 2:30 PM 018 2:48 (specimen) EST PM EST Resulting Agency Comment Spec In Lab Yonathan Smith MD HEMATOLOGY ORDERABLES Performing Organization Address City/[facility]/ZIP Code Phon e Number [address] (ABNORMAL) POCT Glucose (08/10/2017 1:50 PM EST) athologist Signature POC Glucose 243 (H) 65 - 199 [facility] mg/dL [facility] LABORATORY Comment: Supplemental [...] Center & Hospital/ZIP Code Phon e Number [address] POCT Glucose (08/10/2017 11:21 AM EST) athologist Signature POC Glucose 156 65 - 199 [facility]/dL [facility] LABORATORY Comment: Supplemental [...] Center & Hospital/ZIP Code Phon e Number [address] (ABNORMAL) Differential, Automated (08/10/2017 10:28 AM EST) [facility] Method Time Signature Neutrophils % 85.3 % [facility] LABORATORY Neutr Abs (ANC) 9.43 (H) 1.70 - [facility] 6.10 [facility] x10(3)/[facility] L LABORATORY Lymphocytes % 5.5 % [facility] LABORATORY Lymphocytes Abs 0.6 (L) 0.9 - 3.2 [facility] x10(3)/[facility] LABORATORY Monocytes % 5.9 % [facility] LABORATORY Monocyte Abs 0.6 0.3 - 0.9 [facility] x10(3)/[facility] LABORATORY Eosinophils % 2.1 % [facility] LABORATORY Eosinophils Abs 0.2 0.0 - 0.4 [facility] x10(3)/[facility] LABORATORY Basophils % 0.4 % [facility] LABORATORY Basophils Abs 0.0 0.0 - 0.1 [facility] x10(3)/[facility] LABORATORY Immature [...] Abs 0.09 (H) 0.00 - 0.04 x10(3)/[facility] LABORATORY Specimen Anatomical Collection Method Collection Time Receive d Time (Source) Location / / Volume Laterality Blood specimen 08/10/2017 10:28 8 (specimen) AM EST 10:35 AM EST Resulting Agency Comment Spec In Lab Yonathan Smith MD HEMATOLOGY ORDERABLES Performing Organization Address City/State/[place] [address] (ABNORMAL) Hemogram (08/10/2017 10:28 AM EST) Analysis Performed At Patho logist Time Signature WBC 11.0 (H) 4.0 - 9.5 [facility] x10(3)/[facility] LABORATORY RBC 3.02 (L) 4.58 - [facility] 5.54 [facility] x10(6)/[facility] LABORATORY Hemoglobin 8.8 (L) 13.7 - [facility] 16.5 gm/dL [facility] LABORATORY Hematocrit 28.1 (L) 40.5 - [place] 48.5 % [facility] LABORATORY MCV 93.0 82.9 - [place] 93.1 [facility] LABORATORY MCH 29.1 27.5 - [place] 32.1 pg [facility] LABORATORY MCHC 31.3 (L) 32.0 - [place] [place] 35.7 gm/dL [facility] LABORATORY Platelets 207 145 - 357 [facility] x10(3)/[facility] LABORATORY RDWSD 55.3 (H) 36.0 - [place] 45.0 [facility] LABORATORY RDWCV 16.4 (H) 11.4 - [place] 13.8 % [facility] LABORATORY MPV 9.0 7.6 - 12.9 [facility] LABORATORY nRBC % Auto 0.0 % [facility] nRBC Abs Auto 0.000 0.000 - [place] 0.000 [facility] x10(3)/[facility] LABORATORY Specimen Anatomical Collection Method Collection Time Receive d Time (Source) Location / / Volume Laterality Blood specimen 08/10/2017 10:28 8 (specimen) AM EST 10:35 AM EST Resulting Agency Comment Spec In Lab Yonathan Smith MD HEMATOLOGY ORDERABLES Performing Organization Address City/State/[place] [address] VS Angiogram/intervention (vascular) (08/10/2017 [...] 5. Completion RLE angiogram 6. L MANAGER NUCLEAR angiogram 7. 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 L MANAGER NUCLEAR access in the distal L MANAGER NUCLEAR. - Closure device: Mynx Technical Procedure: ?The [...] for a 45cm 5F Destination. V18 and Dorado a nd QuickCross catheters were used to [...] Access appeared in the distal R MANAGER NUCLEAR. Closure and sheath removal was performed with [...] 5. Completion RLE angiogram 6. L MANAGER NUCLEAR angiogram 7. 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 L MANAGER NUCLEAR access in the distal L MANAGER NUCLEAR. - Closure device: Mynx Technical Procedure: The [...] for a 45cm 5F Destination. V18 and Dorado a nd QuickCross catheters were used to [...] Access appeared in the distal R MANAGER NUCLEAR. Closure and sheath removal was performed with [...] (ABNORMAL) Differential, Automated (08/10/2017 5:50 AM EST) [facility] Method Time Signature Neutrophils % 80.1 % [facility] LABORATORY Neutr Abs (ANC) 9.01 (H) 1.70 - [facility] 6.10 [facility] x10(3)/[facility] LABORATORY Lymphocytes % 8.8 % [facility] LABORATORY Lymphocytes Abs 1.0 0.9 - 3.2 [facility] x10(3)/[facility] LABORATORY Monocytes % 8.3 % [facility] LABORATORY Monocyte Abs 0.9 0.3 - 0.9 [facility] x10(3)/[facility] LABORATORY Eosinophils % 2.0 % [facility] LABORATORY Eosinophils Abs 0.2 0.0 - 0.4 [facility] x10(3)/[facility] LABORATORY Basophils % 0.4 % [facility] LABORATORY Basophils Abs 0.0 0.0 - 0.1 [facility] x10(3)/[facility] LABORATORY Immature [...] Organization Address City/State/Z[place] [address] (ABNORMAL) Hemogram (08/10/2017 5:50 AM EST) Analysis Performed At Patho logist Time Signature WBC 11.3 (H) 4.0 - 9.5 [facility] x10(3)/[facility] LABORATORY RBC 3.15 (L) 4.58 - [place] [facility] 5.54 [facility] x10(6)/[facility] LABORATORY Hemoglobin 8.9 (L) 13.7 - [facility] gm/dL [facility] LABORATORY Hematocrit 29.0 (L) 40.5 - [facility] RYAN 48.5 % [facility] LABORATORY MCV 92.1 82.9 - [facility] RYAN 93.1 [facility] LABORATORY MCH 28.3 27.5 - [facility] RYAN 32.1 pg [facility] LABORATORY MCHC 30.7 (L) 32.0 - [facility] RYAN 35.7 gm/dL [facility] LABORATORY Platelets 231 145 - 357 [facility] x[facility](3[facility] RDWSD 53.9 (H) 36.0 - [facility] RYAN 45.0 [facility] LABORATORY RDWCV 16.2 (H) 11.4 - [facility] RYAN 13.8 % [facility] LABORATORY MPV 8.7 7.6 - 12.9 [facility] LABORATORY nRBC % Auto 0.0 % [facility] LABORATORY nRBC Abs Auto 0.000 0.000 - [facility] 0.000 [facility] x10(3)/[facility] LABORATORY Specimen Anatomical Collection Method Collection Time Receive d Time (Source) Location / / Volume Laterality Blood specimen 08/10/2017 5:50 AM 018 5:59 (specimen) EST AM EST Resulting Agency Comment Spec In Lab Yonathan Smith MD HEMATOLOGY ORDERABLES Performing Organization Address City/State/[place] [address] (ABNORMAL) Basic Metabolic Panel (non-fasting) (08/10/2017 5:50 AM EST) P athologist Signature Glucose Lvl 135 65 - 199 [facility] mg/dL [facility] LABORATORY Comment: [...] [facility] LAB[facility] Estimated GFR >60 >=60 [facility] LABORATORY Comment: The reported eGFR should be multiplied b y 1.2 for patients. The MDRD is not an appropriate measure o f renal function for patients with body mass extremes or in patients with acute kidney failure. http://Grounded[employer].Mosa Records/DHnkdep http://Grounded[employer].Mosa Records/DHMCnkf Specimen Anatomical Collection Method Collection Time Receive d Time (Source) Location / / Volume Laterality Blood specimen 08/10/2017 5:50 AM 018 5:59 (specimen) EST AM EST Resulting Agency Comment Spec In Lab Yonathan Smith MD CHEMISTRY ORDERABLES Performing Organization Address [facility] [place] [address] (ABNORMAL) Prothrombin Time (08/10/2017 [...] Smith MD HEMATOLOGY ORDERABLES Performing Organization Address City/[facility] [place] [address] (ABNORMAL) POCT Glucose (08/10/2017 4:01 AM EST) athologist Signature POC Glucose 206 (H) 65 - 199 [facility] mg/dL [facility] LABORATORY Comment: [...] Address City/State/ZIP Code Phon e Number [address] POCT Glucose (08/10/2017 2:01 AM EST) athologist Signature POC Glucose 188 65 - 199 [place] [facility] mg/dL [facility] LABORATORY Comment: [...] Center & Hospital/[place] [address] (ABNORMAL) POCT Glucose (08/09/2017 11:42 PM EST) athologist Signature POC Glucose 283 (H) 65 - 199 [place] mg/dL [facility] LABORATORY Comment: [...] Organization Address City/State/[place] [address] POCT Glucose (08/09/2017 8:55 PM EST) athologist Signature POC Glucose 182 65 - 199 [place] Z[facility] mg/dL [facility] LABORATORY Comment: [...] Center [facility] Hospital/[place] [address] (ABNORMAL) APTT (08/09/2017 6:42 [...] Smith MD HEMATOLOGY ORDERABLES Performing Organization Address City/[facility]/[place] [address] POCT Glucose (08/09/2017 4:41 PM EST) athologist Signature POC Glucose 195 65 - 199 [facility] LABORATORY Comment: [...] [facility] Hospital/[place] [address] POCT Glucose (08/09/2017 12:29 PM EST) athologist Signature POC Glucose 140 65 - 199 [facility]/dL [facility] LABORATORY Comment: Supplemental ranges: <140 mg/dL before meals <180 mg/dL all other times of the day Specimen Anatomical Collection Method Collection Time Receive d Time (Source) Location / / Volume Laterality Blood specimen 08/09/2017 12:29 8 (specimen) PM EST 12:29 PM EST Yonathan Smith MD POINT OF CARE TEST ORDERABLE S Performing Organization Address [facility]/ZIP Code Phon e Number [address] POCT Glucose (08/09/2017 9:59 AM EST) P athologist Signature POC Glucose 135 65 - 199 [facility] mg/dL [facility] LABORATORY Comment: Supplemental ranges: <140 mg/dL before meals <180 mg/dL all other times of the day Specimen Anatomical Collection Method Collection Time Receive d Time (Source) Location / / Volume Laterality Blood specimen 08/09/2017 9:59 AM 018 9:59 (specimen) EST AM EST Yonathan Smith MD POINT OF CARE TEST ORDERABLE S Performing Organization Address [facility]/ZIP Code Phon e Number [address] Specimen to Pathology (08/09/2017 8:41 AM EST) Specimen Anatomical Collection Method Collection Time Receive d Time (Source) Location / / Volume Laterality AP Specimen 08/09/2017 8:41 AM 8 8:41 EST AM EST Narrative [facility] LABORAT ORY - 08/09/2017 8:41 AM EST Specimen requisition ordered. ??Separate Pathology report to follow Yonathan Smith MD PATHOLOGY/CYTOLOGY ORDERABLE S Performing Organization Address City/[facility]/[place] [address] Surgical Pathology Report (08/09/2017 8:40 AM EST) Component Value Ref Test Analysis Performed At Patholo gist Range Method Time Signature Surgical [id number] ? Location: [facility]; [facility]; A [facility] Report The signing [...] Verified: ??08/13/2017 ?Pathologist Performed at: ??-[facility] [place], [place], [place] CLINICAL INFORMATION Specimen Submitted: A - [...] City/State/[place] [address] Anaerobic Culture (08/09/2017 8:30 AM EST) [facility] [employer] Method Time Signature Anaerobic No anaerobic [facility] Culture organisms [facility] LABORATORY Specimen Anatomical Collection Method [...] - GENERAL ORDER ROBSON Performing Organization Address City/[facility]/[place] [address] (ABNORMAL) Abscess/Wound Aspirate Culture (08/09/2017 8:30 AM EST) [facility] Method Time Signature Abscess/Wound Moderate mixed [facility] Aspirate bacterial TURIN Culture morphotypes [facility] normal LABORATORY cutaneous leroy (A) Gram Stain Rare White Blood Cells [facility] Few Gram Positive Cocci in pairs TURIN () [facility] LABORATORY Organism Gram Positive [facility] Cocci in pairs TURIN () [facility] LABORATORY Specimen Anatomical Collection [...] - GENERAL ORDER ROBSON Performing Organization Address City/[facility]/ZIP Code Phon e Number [place] [id number] HOSPITAL LAB[address]ORY [address] POCT Glucose (08/09/2017 4:28 AM EST) P athologist Signature POC Glucose 128 65 - 199 [facility] LABORATORY Comment: Supplemental ranges: <140 mg/dL before meals <180 mg/dL all other times of the day Specimen Anatomical Collection Method Collection Time Receive d Time (Source) Location / / Volume Laterality Blood specimen 08/09/2017 4:28 AM 018 4:28 (specimen) EST AM EST Yonathan Smith MD POINT OF CARE TEST ORDERABLE S Performing Organization Address City/State/[place] [address] ABORH Recheck Status (08/09/2017 1:10 AM EST) [facility] Method Time Signature ABORH Type Completed [...] Center & Hospital/[place] [address] Antibody screen (08/09/2017 1:10 AM EST) [facility] Method Time Signature Ab Screen Negative [facility] LABORATORY Expires at 08/12/2017 [facility] [id number] on: [facility] LABORATORY Specimen Anatomical Collection Method Collection Time Receive d Time (Source) Location / / Volume Laterality Blood specimen 08/09/2017 1:10 AM 018 1:35 (specimen) EST AM EST Resulting Agency Comment Spec In Lab Yonathan Smith MD BLOOD BANK ORDERABLES Performing Organization Address City/[facility]/[place] [address] ABO/Rh Typing (08/09/2017 1:10 [...] Center & Hospital/[place] [address] (ABNORMAL) APTT (08/09/2017 1:10 [...] City/State/[place] [address] (ABNORMAL) Differential, Automated (08/09/2017 1:10 AM EST) [facility] gist Method Time Signature Neutrophils % 76.2 % [facility] LABORATORY Neutr Abs (ANC) 8.59 (H) 1.70 - [facility] 6.10 [facility] x10(3)/[facility] LABORATORY Lymphocytes % 11.0 % [facility] LABORATORY Lymphocytes Abs 1.2 0.9 - 3.2 [facility] x10(3)/[facility] LABORATORY Monocytes % 8.4 % [facility] LABORATORY Monocyte Abs 1.0 (H) 0.3 - 0.9 [facility] x10(3)/[facility] LABORATORY Eosinophils % 3.5 % [facility] LABORATORY Eosinophils Abs 0.4 0.0 - 0.4 [facility] x10(3)/[facility] LABORATORY Basophils % 0.5 % [facility] LABORATORY Basophils Abs 0.1 0.0 - 0.1 [facility] x10(3)/[facility] LABORATORY Immature [...] City/State/[place] [address] (ABNORMAL) Hemogram (08/09/2017 1:10 AM EST) Analysis Performed At Patho logist Time Signature WBC 11.3 (H) 4.0 - 9.5 [facility] x10(3)/[facility] LABORATORY RBC 3.47 (L) 4.58 - [facility] 5.54 [facility] x10(6)/[facility] LABORATORY Hemoglobin 10.0 (L) 13.7 - [facility] 16.5 gm/dL [facility] LABORATORY Hematocrit 31.9 (L) 40.5 - [facility] 48.5 % [facility] LABORATORY MCV 91.9 82.9 - [facility] 93.1 [facility] LABORATORY MCH 28.8 27.5 - [facility] RYAN 32.1 pg [facility] LABORATORY MCHC 31.3 (L) 32.0 - [facility] 35.7 gm/dL [facility] LABORATORY Platelets 234 145 - 357 [facility] x10(3)/[facility] LABORATORY RDWSD 54.0 (H) 36.0 - [facility] RYAN 45.0 [facility] LABORATORY RDWCV 16.2 (H) 11.4 - [facility] 13.8 % [facility] LABORATORY MPV 8.7 7.6 - 12.9 [facility] LABORATORY nRBC % Auto 0.0 % [facility] LABORATORY nRBC Abs Auto 0.000 0.000 - [place] RYAN 0.000 [facility] x10(3)/[facility] LABORATORY Specimen Anatomical Collection Method Collection Time Receive d Time (Source) Location / / Volume Laterality Blood specimen 08/09/2017 1:10 AM 018 1:19 (specimen) EST AM EST Resulting Agency Comment Spec In Lab Yonathan Smith MD HEMATOLOGY ORDERABLES Performing Organization Address [facility]/[place] [facility] [place] [address] (ABNORMAL) Prothrombin Time (08/09/2017 [...] Smith MD HEMATOLOGY ORDERABLES Performing Organization Address [facility] [place] [address] (ABNORMAL) Basic Metabolic Panel (non-fasting) (08/09/2017 1:10 AM EST) athologist Signature Glucose Lvl 108 65 - 199 [facility] mg/dL [facility] LABORATORY Comment: [...] or in patients with acute kidney failure. [email or web address] Specimen Anatomical Collection Method Collection Time Receive d Time (Source) Location / / Volume Laterality Blood specimen 08/09/2017 1:10 AM 018 1:19 (specimen) EST AM EST Resulting Agency Comment Spec In Lab Yonathan Smith MD CHEMISTRY ORDERABLES Performing Organization Address City/State/ZIP Code Phon e Number [address] POCT Glucose (08/09/2017 12:05 AM EST) athologist Signature POC Glucose 128 65 - 199 [facility] mg/dL [facility] LABOR[facility]ORY Comment: [...] Organization Address City/State/[place] [address] (ABNORMAL) POCT Glucose (08/08/2017 7:36 PM EST) athologist Signature POC Glucose 215 (H) 65 - 199 [facility] Comment: Supplemental [...] Center & Hospital/[place] [address] (ABNORMAL) POCT Glucose (08/08/2017 6:23 PM EST) athologist Signature POC Glucose 216 (H) 65 - 199 [facility] mg/dL [facility] Comment: [...] [facility] Hospital/[place] [address] (ABNORMAL) APTT (08/08/2017 6:00 [...] Smith MD HEMATOLOGY ORDERABLES Performing Organization Address City/[facility]/ZIP Code [place] [address] POCT Glucose (08/08/2017 4:42 PM EST) athologist Signature POC Glucose 78 65 - 199 [facility]dL [facility] Comment: [...] Organization Address City/State/[place] [address] (ABNORMAL) POCT Glucose (08/08/2017 4:01 PM EST) athologist Signature POC Glucose 58 (L) 65 - 199 [facility] mg/dL [facility] Comment: [...] Organization Address City/State/[place] [address] POCT Glucose (08/08/2017 11:51 AM EST) athologist Signature POC Glucose 90 65 - 199 [facility]/dL [facility] Comment: [...] Organization Address City/State/[place] [address] (ABNORMAL) APTT (08/08/2017 10:27 [...] Smith MD HEMATOLOGY ORDERABLES Performing Organization Address City/[facility]/ZIP Code Phon e Number [address] POCT Glucose (08/08/2017 8:02 AM EST) athologist Signature POC Glucose 178 65 - 199 [facility] mg/dL [facility] Comment: [...] [facility] Hospital/[place] [address] (ABNORMAL) APTT (08/08/2017 4:51 AM EST) athologist Signature PTT >160 25 - 35 [facility] (Critical) sec [facility] Comment: Called by: HOWARD, [...] City/State/[place] [address] (ABNORMAL) Differential, Automated (08/08/2017 4:51 AM EST) [facility] gist Method Time Signature Neutrophils % 77.9 % [facility] LABORATORY Neutr Abs (ANC) 8.17 (H) 1.70 - [facility] 6.10 [facility] x10(3)/[facility] LABORATORY Lymphocytes % 10.3 % [facility] LABORATORY Lymphocytes Abs 1.1 0.9 - 3.2 [facility] x10(3)/[facility] LABORATORY Monocytes % 7.0 % [facility] LABORATORY Monocyte Abs 0.7 0.3 - 0.9 [facility] x10(3)/[facility] LABORATORY Eosinophils % 3.6 % [facility] LABORATORY Eosinophils Abs 0.4 0.0 - 0.4 [facility] x10(3)/[facility] LABORATORY Basophils % 0.5 % [facility] LABORATORY Basophils Abs 0.0 0.0 - 0.1 [facility] x10(3)/[facility] LABORATORY Immature [...] Address City/State/ZIP Code Phon e Number [address] (ABNORMAL) Hemogram (08/08/2017 4:51 AM EST) Analysis Performed At Patho logist Time Signature WBC 10.5 (H) 4.0 - 9.5 [facility] x[facility](3[facility] LABORATORY RBC 3.27 (L) 4.58 - [facility] 5.54 [facility] x10(6)/[facility] LABORATORY Hemoglobin 9.3 (L) 13.7 - [facility] 16.5 gm/dL [facility] LAB[facility]ORY Hematocrit 30.3 (L) 40.5 - [facility] 48.5 % [facility] LABORATORY MCV 92.7 82.9 - [facility] 93.1 [facility] LABORATORY MCH 28.4 27.5 - [facility] 32.1 pg [facility] LABORATORY MCHC 30.7 (L) 32.0 - [facility] 35.7 gm/dL [facility] LABORATORY Platelets 252 145 - 357 [facility] x10(3)/[facility] LABORATORY RDWSD 54.6 (H) 36.0 - [facility] 45.0 [facility] LABORATORY RDWCV 16.2 (H) 11.4 - [facility] RYAN 13.8 % [facility] LABORATORY MPV 9.1 7.6 - 12.9 [facility] LABORATORY nRBC % Auto 0.0 % [facility] LABORATORY nRBC Abs Auto 0.000 0.000 - [facility] 0.000 [facility] x10(3)/[facility] LABORATORY Specimen Anatomical Collection Method Collection Time Receive d Time (Source) Location / / Volume Laterality Blood specimen 08/08/2017 4:51 AM 018 5:14 (specimen) EST AM EST Resulting Agency Comment Spec In Lab Yonathan Smith MD HEMATOLOGY ORDERABLES Performing Organization Address City/State/[place] [address] (ABNORMAL) Prothrombin Time (08/08/2017 [...] Organization Address City/State/[place] [address] (ABNORMAL) Basic Metabolic Panel (non-fasting) (08/08/2017 4:51 AM EST) athologist Signature Glucose Lvl 229 (H) 65 - 199 [facility] mg/dL [facility] Comment: [...] or in patients with acute kidney failure. [email or web address] AM [email or web address] Specimen Anatomical Collection Method Collection Time Receive d Time (Source) Location / / Volume Laterality Blood specimen 08/08/2017 4:51 AM 018 5:14 (specimen) EST AM EST Resulting Agency Comment Spec In Lab Yonathan Smith MD CHEMISTRY ORDERABLES Performing Organization Address City/[facility]/ZIP Code Phon e Number [address] POCT Glucose (08/08/2017 4:20 AM EST) athologist Signature POC Glucose 193 65 - 199 [facility] Comment: Supplemental [...] Center & Hospital/ZIP Code Phon e Number [address] POCT Glucose (08/07/2017 11:11 PM EST) athologist Signature POC Glucose 124 65 - 199 [facility] mg/dL [facility] Comment: [...] [facility] Hospital/[place] [address] (ABNORMAL) APTT (08/07/2017 10:18 [...] Organization Address City/State/[place] [address] POCT Glucose (08/07/2017 8:10 PM EST) athologist Signature POC Glucose 140 65 - 199 [facility]/dL [facility] Comment: [...] Organization Address City/State/[place] [address] POCT Glucose (08/07/2017 5:27 PM EST) athologist Signature POC Glucose 187 65 - 199 [facility] Comment: Supplemental [...] [facility] Hospital/[place] [address] POCT Glucose (08/07/2017 3:29 PM EST) athologist Signature POC Glucose 86 65 - 199 [facility] mg/dL [facility] Comment: Supplemental ranges: <140 mg/dL before meals <180 mg/dL all other times of the day Specimen Anatomical Collection Method Collection Time Receive d Time (Source) Location / / Volume Laterality Blood specimen 08/07/2017 3:29 PM 018 3:29 (specimen) EST PM EST Yonathan Smith MD POINT OF CARE TEST ORDERABLE S Performing Organization Address [facility] [place] [address] (ABNORMAL) APTT (08/07/2017 2:50 [...] Smith MD HEMATOLOGY ORDERABLES Performing Organization Address City/[facility]/ZIP [facility] [place] [address] (ABNORMAL) POCT Glucose (08/07/2017 2:23 PM EST) athologist Signature POC Glucose 55 (L) 65 - 199 [facility] mg/dL [facility] Comment: [...] Address City/State/ZIP Code Phon e Number [address] POCT Glucose (08/07/2017 12:08 PM EST) P athologist Signature POC Glucose 77 65 - 199 [facility]/dL [facility] Comment: [...] Organization Address City/State/[place] [address] (ABNORMAL) Differential, Automated (08/07/2017 7:30 AM EST) Patholo gist Method Time Signature Neutrophils % 73.8 % [facility] LABORATORY Neutr Abs (ANC) 7.17 (H) 1.70 - [facility] 6.10 [facility] x10(3)/[facility] L LABORATORY Lymphocytes % 12.2 % [facility] LABORATORY Lymphocytes Abs 1.2 0.9 - 3.2 [facility] x10(3)/[facility] LABORATORY Monocytes % 9.0 % [facility] LABORATORY Monocyte Abs 0.9 0.3 - 0.9 [facility] x10(3)/[facility] LABORATORY Eosinophils % 3.9 % [facility] LABORATORY Eosinophils Abs 0.4 0.0 - 0.4 [facility] x10(3)/[facility] LABORATORY Basophils % 0.6 % [facility] LABORATORY Basophils Abs 0.1 0.0 - 0.1 [facility] x10(3)/[facility] LABORATORY Immature [...] City/State/ZIP Code Phon e Number [place] [id number] (ABNORMAL) Hemogram (08/07/2017 7:30 AM EST) Analysis Performed At Patho logist Time Signature WBC 9.7 (H) 4.0 - 9.5 [facility] x10(3)/[facility] LABORATORY RBC 3.54 (L) 4.58 - [facility] 5.54 [facility] x10(6)/[facility] LABORATORY Hemoglobin 9.9 (L) 13.7 - [facility] 16.5 gm/dL [facility] LABORATORY Hematocrit 32.3 (L) 40.5 - [facility] 48.5 % [facility] LABORATORY MCV 91.2 82.9 - [facility] 93.1 [facility] LABORATORY MCH 28.0 27.5 - [facility] 32.1 pg [facility] LAB[facility]ATORY MCHC 30.7 (L) 32.0 - [facility] 35.7 gm/dL [facility] Platelets 312 145 - 357 [facility] x10(3)/[facility] LABORATORY RDWSD 53.2 (H) 36.0 - [facility] RDWCV 16.0 (H) 11.4 - [facility] 13.8 % [facility] LABORATORY MPV 8.9 7.6 - 12.9 [facility] LABORATORY nRBC % Auto 0.0 % [facility] LABORATORY nRBC Abs Auto 0.000 0.000 - [facility] 0.000 [facility] x10(3)/[facility] LABORATORY Specimen Anatomical Collection Method Collection Time Receive d Time (Source) Location / / Volume Laterality Blood specimen 08/07/2017 7:30 AM 018 7:45 (specimen) EST AM EST Resulting Agency Comment Spec In Lab Yonathan Smith MD HEMATOLOGY ORDERABLES Performing Organization Address City/State/[place] [address] (ABNORMAL) Basic Metabolic Panel (non-fasting) (08/07/2017 7:30 AM EST) athologist Signature Glucose Lvl 80 65 - 199 [facility] mg/dL [facility] Comment: [...] or in patients with acute kidney failure. [email or web address] Specimen Anatomical Collection Method Collection Time Receive d Time (Source) Location / / Volume Laterality Blood specimen 08/07/2017 7:30 AM 018 7:45 (specimen) EST AM EST Resulting Agency Comment Spec In Lab Yonathan Smith MD CHEMISTRY ORDERABLES Performing Organization Address City/[facility]/ZIP [facility] Phon e Number [address] POCT Glucose (08/07/2017 7:27 AM EST) athologist Signature POC Glucose 81 65 - 199 [facility] mg/dL [facility] Comment: [...] Organization Address City/[facility] Phon e Number [address] APTT (08/07/2017 7:04 AM [...] Organization Address City/State/[place] [address] (ABNORMAL) Prothrombin Time (08/07/2017 [...] Organization Address City/State/[place] [address] POCT Glucose (08/07/2017 4:03 AM EST) athologist Signature POC Glucose 93 65 - 199 [facility] Comment: Supplemental ranges: <140 mg/dL before meals <180 mg/dL all other times of the day Specimen Anatomical Collection Method Collection Time Receive d Time (Source) Location / / Volume Laterality Blood specimen 08/07/2017 4:03 AM 018 4:03 (specimen) EST AM EST Yonathan Smith MD POINT OF CARE TEST ORDERABLE S Performing Organization Address City/State/[place] [address] POCT Glucose (08/07/2017 12:04 AM EST) athologist Signature POC Glucose 107 65 - 199 [facility] Comment: Supplemental [...] Center & Hospital/ZIP Code Phon e Number [address] POCT Glucose (08/06/2017 7:56 PM EST) P athologist Signature POC Glucose 178 65 - 199 [facility] mg/dL [facility] LABOR[facility]ORY Comment: [...] Address City/State/ZIP Code Phon e Number [address] TcPO2 (08/06/2017 2:32 PM EST) Component Value Ref Test Analysis Performed At Patholo gist Range Method Time Signature VB Text Department: Vascular Surgery Lab VASCUBASE Report Patient: [id number] (GREGORY HOANG) CPT: 4302114 ICD10: I99.8 Referring Physician: YONATHAN SMITH ?? [...] Mcgrath RN)[id number] (Not Given - Provider: Mira Turong RN - Reason: Order parameters not met) [...]
Routine documented in this encounter Care Teams Press Operator Assistant Relationship Specialty Start Date End Date Lovely Vicente MD PCP - General 04/16/[address] [place] [address] [address] [place] [address] documented as of this encounter
--- OUTSIDE RECORDS SUMMARY | 2022-04-15 08:21 | XMS_ITS | Encounter Summary ---
:1945 Author Organization [facility] [place] [address] Care Team Providers Name Role Phone Lovely Vicente MD Primary Care Provider Reason for Visit Auth/Cert Specialty Diagnoses / Procedures Referred By Contact Refer red To Contact Diagnoses Critical lower limb ischemia CELLULITIS RT FOOT Procedures EMERGENCY Referral ID Status Reason Start Date Expiration Date Visits Requ ested Visits Authorized [id number] 1 1 Encounter Details Date Type Department Care Team Description 08/09/2017 Surgery Main Operating Room Yonathan Smith AM PUTATION, Mary Hitchcock MD TRANSMETATARSAL ([facility] 12.71) [facility] [address] Siddiqu[place] [address] [place] [address] [phone] Social History Tobacco Use Types Packs/Day Years [...] EST Inpatient - Discharge Summary Patient Name: Gregroy Hoang Patient Age: 72 y.o. 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 [...] Dorsalis Pedis (Ankle) Artery ?132 ? 0.94 ??Baraga-Biphasic ? Posterior Tibial (Ankle) Artery ??154 ? 1.10 ??Baraga-Biphasic ? Fourth Toe ? 67 ?0.48 ?? [...] foot. Discharge Conditions/Prognosis: Good Discharge to: [facility] Rehab Discharge Medications: Your Medications New [...] For any problems or questions please call [phone] ZELDA Smith, literature teacher Nurse Clinician For issues on weeknights after 5pm and weekends please call [phone] and ask for the Vascular Fellow insulation foreman. General Instructions None Future Appointments and Orders Future Appointments Provider Department Dept Phone 08/26/2017 4:00 PM Aurelia Rivera PA [facility] [place] [phone] 09/07/2017 3:00 PM LAB, THREE L Lab 3L [facility] [phone] 09/07/2017 4:00 PM Luz Prescott MD Endocrinology at [place] [phone] 09/09/2017 8:00 AM Barbra Soares APRN Pain Management [facility] [place] [phone] Please bring a list of your current [...] For any problems or questions please call [phone] ZELDA Smith, literature teacher Nurse Clinician For issues on weeknights after 5pm and weekends please call [phone] and ask for the Vascular Fellow insulation foreman. documented in this encounter Medications at Time [...] Note Patient Destination: [facility] ([facility]) [address] [id number] Transportation: with (at bedside) Time of Discharge: by 12 noon Level of Care: swing Patient Aware: yes Family Notified: yes Md to call report to: Yissel Quintero NURSE DISCHARGE PLANNER already called RN to call report to: [phone] Shirin Wolf Office of Care Management Pager [phone] Shirin Wolf RN - 08/16/2017 10:50 AM EST [facility] has offered pt swing bed. Pt and accept bed. will transport via car. NURSE DISCHARGE PLANNER Yissel Quintero aware; d/c paperwork will be completed by 12 noon. [facility] requests pt arrival by 1400 today; NURSE DISCHARGE PLANNER, RN, and family aware. NURSE DISCHARGE PLANNER called [facility] and was told that they prefer pt to arrive with wound vac dressing applied but clamped. NURSE DISCHARGE PLANNER applied new wound vac dressing. RN has [facility] number to call report. PASSR completed; NURSE DISCHARGE PLANNER paged to request provider signature in highlighted space. Indigo from [facility] notified via email that home wound vac now cancelled; [facility] has picked up from room and order cancelled. Packet started and provided to community living instructor. Medicare important message explained to patient, patient signed. Copy provided to patient and signature page to OCM for inclusion in pt EMR. L Radha Powers Yoselin - 08/16/2017 10:34 AM EST Office of Care Management/Medical Donation Professional Patient Name: Gregory Hoang : 1945 Patient has been offered a swing bed at [facility]. The patient will be transported by private transportation. No MD to MD report necessary Please call Nursing Report to [phone], ask for buckle coverer. Info to accompany patient: Narcotic Prescriptions Copies of Medication Administration Records and IV sheets for past 10 days. Plan: Medical Donation Professional will be available to the patient and Aircrewman-RN and/or Regional Manager for further assistance. Patient will be discharged to: [address] [id number] Radha Powers, Medical Donation Professional Mira Truong, VAMSI - 08/15/2017 10:05 PM EST [address] Flores to ask if he wanted to hold metoprolol dose. BP 95/58. OK to hold this dose Courtney Brito - 08/15/2017 3:26 PM EST Office of Care Management(OCM)/Medical Donation Professional(RS)/ D/C Planning re : Patient is medically ready for d/c today. RS has been in contact with [facility] to see if they could offer a bed. [facility] is still reviewing the case and need their MD to review chart prior to accepting or declining. OCM team needs to check in with [facility] tomorrow to check on status. 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 Vac in [...] [facility] PHONE: [phone] FAX: [phone] CM spoke with RS who said that [...] rehab. Await recommendations from PT. Covering pager #[phone]. 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 Fur Weigher Kaitlin Saha, RN Pager #[phone] Payam Rosales - 08/13/2017 2:37 PM EST Inker Encounter Note Patient Name: Gregory Hoang : [id number] MR#: [id number] Admit Date: 08/06/2017 1:41 PM Hospital Day 7 days Narrative: Visited to introduce and assess acceptance of [facility] services. Pt was awake, alert, oriented and in chair and family was there. Assessment:Patient coping positively with stresses of illness/hospitalization at this time. Pt says that he is hoping to get better and his family was there. Pt says that he has family care and supportand taking one day at time. Intervention and Outcome: Provided emotional support and encouraging presence. 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 A letter describing our affiliations was reviewed with them and theywere educated about their right to choose where referrals are placed. Patient requests referral to [facility]. PHONE: [phone] FAX: [phone]. And Home NPWT (Negative Pressure Wound Therapy) aka wound vac device made available to pt. Serial # confirmed. Reviewed [facility] Proof of Delivery/Assignment of Benefits Statement(POD/AOB) Form w patient or authorized agent signing on behalf of patient. Copy of POD/AOB provided to pt and other copy faxed to [employer] @ fax# [phone] Expected date of discharge: 08/12/2017. 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 Address: [address] [place] [address] [place] [address] (home) Mobile: Telephone Information: Referring Provider: No [...] by Manny Mcknight MD at [facility] MAIN OR ??? PRO CABG, ARTERIAL, SINGLE N/A 07/07/2017 @CABG, USING ARTERIAL GRAFT;SINGLE ARTERIAL GRAFT (WRVU 33.75) performed by Yuan Retana MD at [facility] MAIN OR ??? PRO CABG, ARTERY-VEIN, TWO N/A 07/07/2017 @CABG, TWO VENOUS GRAFTS & ARTERIAL GRAFT (WRVU 7.93) performed by Yuan Retana MD at [facility] MAIN OR ??? PRO COLONOSCOPY, REMV LESN, SNARE 01/16/2014 COLONOSCOPY, POLYPECTOMY, REMOVAL LESION BY SNARE performed by Nohemi Jaimes MD at [facility] ENDOSCOPY ??? PRO ENDOSCOPY W/VIDEO-ASST VEIN HARVEST, CABG Right 07/07/2017 ENDOSCOPIC HARVEST VEIN(S) FOR CABG (WRVU 0.31) performed by Yuan Retana MD at [facility] MAIN OR ??? PRO THYROIDECTOMY 03/28/2013 THYROIDECTOMY, TOTAL OR COMPLETE performed by Manny Mcknight MD at 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 Heparin gtt continues to run. Pt a/ox4. [...] : 1945 AGE 72 y.o. Address: [address] [place] [address] [place] [address] (home) Mobile: Telephone Information: Referring Provider: No [...] by Manny Mcknight MD at [facility] MAIN OR ??? PRO CABG, ARTERIAL, SINGLE N/A 07/07/2017 @CABG, USING ARTERIAL GRAFT;SINGLE ARTERIAL GRAFT (WRVU 33.75) performed by Yuan Retana MD at [facility] MAIN OR ??? PRO CABG, ARTERY-VEIN, TWO N/A 07/07/2017 @CABG, TWO VENOUS GRAFTS & ARTERIAL GRAFT (WRVU 7.93) performed by Yuan Retana MD at [facility] OR ??? PRO COLONOSCOPY, REMV LESN, SNARE 01/16/2014 COLONOSCOPY, POLYPECTOMY, REMOVAL LESION BY SNARE performed by Nohemi Jaimes MD at [facility] ENDOSCOPY ??? PRO ENDOSCOPY W/VIDEO-ASST VEIN HARVEST, CABG Right 07/07/2017 ENDOSCOPIC HARVEST VEIN(S) FOR CABG (WRVU 0.31) performed by Yuan Retana MD at [facility] MAIN OR ??? PRO THYROIDECTOMY 03/28/2013 THYROIDECTOMY, TOTAL OR COMPLETE performed by Manny Mcknight MD at 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 # DISPO: Floor status, Full Code, iVry Starkey MD Vascular Surgery Melba Cruz RN - 08/09/2017 12:58 AM EST Pt alarmed, but will not remain sitting. Pt has been given Ativan and Dilaudid and is becoming increasingly more lethargic. Sitter to remain in room with pt for safety. Phlebotomy arrived for PTT blood draw at 0045. 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 Vascular resident insulation foreman and will forward result to the team prior to rounds. Melba Cruz RN - 08/08/2017 4:06 AM EST Fall Event Note Gregory Hoang [id number] 08/08/2017 Time of Fall: 0400 Was the [...] Starkey MD - 08/07/2017 4:32 PM EST [facility] staff: Patient was seen and examined and [...] New Imaging ?? None new Assessment: Gregory Honag is a 72 y.o. 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 [...] by Manny Mcknight MD at [facility] MAIN OR ??? PRO CABG, ARTERIAL, SINGLE N/A 07/07/2017 @CABG, USING ARTERIAL GRAFT;SINGLE ARTERIAL GRAFT (WRVU 33.75) performed by Yuan Retana MD at [facility] MAIN OR ??? PRO CABG, ARTERY-VEIN, TWO N/A 07/07/2017 @CABG, TWO VENOUS GRAFTS & ARTERIAL GRAFT (WRVU 7.93) performed by Yuan Retana MD at [facility] MAIN OR ??? PRO COLONOSCOPY, REMV LESN, SNARE 01/16/2014 COLONOSCOPY, POLYPECTOMY, REMOVAL LESION BY SNARE performed by Nohemi Jaimes MD at [facility] ENDOSCOPY ??? PRO ENDOSCOPY W/VIDEO-ASST VEIN HARVEST, CABG Right 07/07/2017 ENDOSCOPIC HARVEST VEIN(S) FOR CABG (WRVU 0.31) performed by Yuan Retana MD at [facility] MAIN OR ??? PRO THYROIDECTOMY 03/28/2013 THYROIDECTOMY, TOTAL OR COMPLETE performed by Manny Mcknight MD at [facility] MAIN OR Functional Status/Social Hx: Quit smoking [...] left blue toes with CTA showing R RESIDENTIAL ASSISTANT pseudoaneurysm (now thrombosed) and occluded ATs [...] 2.5x80 5. Completion RLE angiogram 6. L RESIDENTIAL ASSISTANT angiogram 7. 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 - L RESIDENTIAL ASSISTANT angriogram demonstrated: High femoral bifurcation over the proximal half of the femoral head. L RESIDENTIAL ASSISTANT access in the distal L RESIDENTIAL ASSISTANT. - Closure device: Mynx Technical Procedure: [...] for a 45cm 5F Destination. V18 and [place] and QuickCross catheters were used to select [...] 5F. A stationed picture of the L RESIDENTIAL ASSISTANT was performed as the patient was noted to have a very high bifurcation. Access appeared in the distal R RESIDENTIAL ASSISTANT. Closure and sheath removal was performed [...] PM EST 1440 report called to 5 [place] nurse Tessa RN documented in this encounter [...] pt and pt's spouse. Discharge to [facility]. Goal: Individualization & Mutuality Outcome: Outcome [...] days -- Transfer Training Goal, Activity Type lqx-xu-qkhmb/knevc-zr-tyr -- Transfer Train Goal, Ingham Level conditional [...] cabello within reach, Hourly rounding by RN/PATIENT FLOW COORDINATOR. Bed alarm / Chair alarm. Patient-specific fall [...] MD - 08/15/2017 6:28 PM EST [facility] Patient Name: Gregory Hoang : [id number] MR#: [id number] Case Date: 08/09/2017 Surgeon: Surgeon(s) and Role: [...] 2.5x80 5. Completion RLE angiogram 6. L RESIDENTIAL ASSISTANT angiogram 7. Mynx closure Precautions/Restrictions: fall, [...] other (see comments) (or swing bed) Pager: [phone] BASSAM ELIAS, PT 08/14/2017 Inpatient Physical Therapy [...] facilities over the weekend except for [facility]. CM spoke with [facility] CM Drea Sandhu, VAMSI who said that they do not anticipate any beds over the weekend. Reviewed with patient/ that they need to be aware that patient will need to take the first bed offered at the facilities that they make referrals to. Their choices are: 1- [facility] PHONE: [phone] FAX: [phone] 2- [facility] ([facility]) [address] [place] [address] 3- [facility])([facility]) [address] [place] [address] I have discussed Medicare/Private Insurance [...] RS/CM on Wednesday to follow-up. Covering pager #[phone] for today. Plan of Care - Henrique [...] with additional findings of pseudoaneurysm on R RESIDENTIAL ASSISTANT and bilateral anterior tibial artery occlusions. [...] an outpatient once discharged. Have patient call [phone] to set up an appointment. Follow-up: Dermatology will sign-off for now. Please do not hesitate to contact us if you have any questions orconcerns. Impression and Recommendations discussed with primary team on 08/13/2017. Karo Henderson MD Resident in Dermatology Section of Dermatology, Department of Surgery [facility] Pager [phone] Patient seen and evaluated with staff Device Processing Engineer: Halima Cordero MD Section of Dermatology [facility] Level of Resident Supervision: Direct [...] Outcome: Ongoing (Interventions Implemented as Appropriate) 08/12/17 3586 Coping/Psychosocial Plan Of Care Reviewed With patient;spouse [...] 2.5x80 5. Completion RLE angiogram 6. L RESIDENTIAL ASSISTANT angiogram 7. Mynx closure Active Non-Hospital [...] home with home health ([facility] PT[facility]OT) Pager: [phone] YASIR TELLO OT 08/12/2017 Occupational Therapy Rehabilitation [...] 2.5x80 5. Completion RLE angiogram 6. L RESIDENTIAL ASSISTANT angiogram 7. 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 Completion RLE angiogram 6. L RESIDENTIAL ASSISTANT angiogram 7. Mynx closure He is [...] Anticipated Discharge Disposition: inpatient rehabilitation facility Pager: [phone] LAWRENCE GONZALEZ, PT 08/11/2017 Physical Therapy Rehabilitation [...] 7 days Transfer Training Goal, Activity Type hcp-zc-pxhgm/vhbsr-tq-gjo Transfer Train Goal, [place] Level conditional independence Plan of David DelloAnnetta [...] cabello within reach, Hourly rounding by RN/PATIENT FLOW COORDINATOR. Bed alarm / Chair alarm. ? Patient-specific [...] Hospitalizations Within the Past 30 Days: [facility] [place] Anticipated Length Of Stay (If known): Expected Length of Hospitalization: 5-7 days2-3 days Current Decision-Making Capacity: Alert and oriented x 4 Advance Care Planning: on file Kisha Hoang [facility] [phone] Current Coping/Education/Information Needs: pt and spouse state [...] Health/Prescription Coverage: Primary Insurance: MEDICARE Secondary Insurance: [employer] [place] Prescription Coverage: See above Preferred Pharmacy: [facility] Other: N/A Primary Care Provider: Lovely Vicente MD [phone] Patient/Caregiver Goals of Treatment: Patient plans to [...] of care planning. Kaitlin Saha RN Pager: [phone] Plan of Care - Melba Jaramillo RN [...] Overview Goal: Plan of Care Review 08/08/17 8094 Coping/Psychosocial Plan Of Care Reviewed With patient [...] cabello within reach, Hourly rounding by RN/PATIENT FLOW COORDINATOR. Bed alarm / Chair alarm. Patient-specific fall prevention interventions for sensory deficits provided, if applicable: [X] Yes CPG GOAL OUTCOME EVALUATION: Goal: Fall Prevention-Safe Patient Handling Outcome: Ongoing (Interventions Implemented as Appropriate) 08/06/17 1700 08/06/17199908/07/17 0684 Positioning Body Position -- up in chair [...] at bedside and MD TEAM Carrying pager [phone] contacted (via Radio page) and notified of [...] [facility] [place], [place] [address] (Wo rk) 05/28/2022 Laboratory Appointment Lab 05/28/2022 Office Visit Cardiology Zulma Dolan MD [facility] [place] [address] Liz Poole PA [facility] [place] [address] 06/10/2022 Office Visit Dermatology Laura Scherer MD [facility] [address] [place], [place] [address] (Wo rk) documented [...] TYPE AND SCREEN Routine 08/09/2017 1:10 ([facility] [place]SHANDA[place] AM EST BASIC METABOLIC [...] 160 65 - 199 [place] mg/dL [facility], [...] Organization Address City/State/[place] [address] [facility] LABORATORY Drive (ABNORMAL) Differential, Automated (08/16/2017 5:08 AM EST) [facility] Method Time Signature Neutrophils % 73.9 % [facility] LABORATORY Neutr Abs (ANC) 5.37 1.70 - [facility] 6.10 [facility] x10(3)/[facility] LABORATORY Lymphocytes % 10.1 % [facility] Lymphocytes Abs 0.7 (L) 0.9 - 3.2 [facility] x10(3)/[facility] LABORATORY Monocytes % 10.1 % [facility] Monocyte Abs 0.7 0.3 - 0.9 [facility] x10(3)/[facility] LABORATORY Eosinophils % 5.1 % [facility] Eosinophils Abs 0.4 0.0 - 0.4 [facility] x10(3)/[facility] LABORATORY Basophils % 0.4 % [facility] Basophils Abs 0.0 0.0 - 0.1 [facility] x10(3)/[facility] LABORATORY Immature [...] - 0.04 x10(3)/[facility] LABORATORY Specimen Anatomical Collection Method Collection Time Receive d Time (Source) Location / / Volume Laterality Blood specimen 08/16/2017 5:08 AM 018 5:20 (specimen) EST AM EST Resulting Agency Comment Spec In Lab Yonathan Smith MD HEMATOLOGY ORDERABLES Performing Organization Address City/State/[place] [address] [facility] LAB[address]ORY Drive (ABNORMAL) Hemogram (08/16/2017 5:08 AM EST) Analysis Performed At Patho logist Time Signature WBC 7.3 4.0 - 9.5 [facility] x10(3)/[facility] LABORATORY RBC 3.36 (L) 4.58 - [facility] 5.54 [facility] x10(6)/[facility] LABORATORY Hemoglobin 9.7 (L) 13.7 - [facility] 16.5 gm/dL [facility] LABORATORY Hematocrit 30.3 (L) 40.5 - [facility] 48.5 % [facility] LABORATORY MCV 90.2 82.9 - [facility] 93.1 [facility] LABORATORY MCH 28.9 27.5 - [facility] 32.1 pg [facility] LABORATORY MCHC 32.0 32.0 - [facility] 35.[facility] gm/dL [facility] LABORATORY Platelets 282 145 - 357 [facility] x10(3)/[facility] LABORATORY RDWSD 53.9 (H) 36.0 - [facility] 45.0 [facility] LABORATORY RDWCV 16.5 (H) 11.4 - [facility] 13.8 % [facility] LABORATORY MPV 9.0 7.6 - 12.9 [facility] LABORATORY nRBC % Auto 0.0 % [facility] LABORATORY nRBC Abs Auto 0.000 0.000 - [facility] 0.000 [facility] x10(3)/[facility] LABORATORY Specimen Anatomical Collection Method Collection Time Receive d Time (Source) Location / / Volume Laterality Blood specimen 08/16/2017 5:08 AM 018 5:20 (specimen) EST AM EST Resulting Agency Comment Spec In Lab Yonathan Smith MD HEMATOLOGY ORDERABLES Performing Organization Address City/State/[place] [address] (ABNORMAL) Basic Metabolic Panel (non-fasting) (08/16/2017 5:08 AM EST) P athologist Signature Glucose Lvl 141 65 - 199 [facility] mg/dL [facility] [...] or in patients with acute kidney failure. http://Marketocracy/DHnkdep http://Marketocracy/DHMCnkf Specimen Anatomical Collection Method Collection Time Receive d Time (Source) Location / / Volume Laterality Blood specimen 08/16/2017 5:08 AM 018 5:20 (specimen) EST AM EST Resulting Agency Comment Spec In Lab Yonathan Smith MD CHEMISTRY ORDERABLES Performing Organization Address City/State/[place] [address] (ABNORMAL) Prothrombin Time (08/16/2017 [...] Smith MD HEMATOLOGY ORDERABLES Performing Organization Address City/[facility]/ZIP Code Phon e Number [address] POCT Glucose (08/16/2017 4:09 AM EST) athologist Signature POC Glucose 147 65 - 199 [facility] mg/dL [facility]/ZIP Code Phon e Number [address] POCT Glucose (08/15/2017 11:56 PM EST) athologist Signature POC Glucose 176 65 - 199 [place] mg/dL [facility] [...] [facility]/ZIP Code Phon e Number [address] POCT Glucose (08/15/2017 8:05 [...] Organization Address City/State/[place] [address] (ABNORMAL) POCT Glucose (08/15/2017 4:50 PM EST) athologist Signature POC Glucose 232 (H) 65 - 199 [place] mg/dL [facility] LABORATORY Comment: Supplemental ranges: <140 mg/dL before meals <180 mg/dL all other times of the day Specimen Anatomical Collection Method Collection Time Receive d Time (Source) Location / / Volume Laterality Blood specimen 08/15/2017 4:50 PM 018 4:50 (specimen) EST PM EST Yontahan Smith MD POINT OF CARE TEST ORDERABLE S Performing Organization Address City/State/[place] [address] POCT Glucose (08/15/2017 12:04 PM EST) athologist Signature POC Glucose 135 65 - 199 [place] mg/dL [facility] [...] Organization Address City/State/[place] [address] POCT Glucose (08/15/2017 7:36 [...] Organization Address City/State/[place] [address] (ABNORMAL) Differential, Automated (08/15/2017 6:22 AM EST) [facility] Method Time Signature Neutrophils % 76.1 % [facility] LABORATORY Neutr Abs (ANC) 6.62 (H) 1.70 - [facility] 6.10 [facility] x10(3)/[facility] LABORATORY Lymphocytes % 9.3 % [facility] LABORATORY Lymphocytes Abs 0.8 (L) 0.9 - 3.2 [facility] x10(3)/[facility] LABORATORY Monocytes % 9.4 % [facility] LABORATORY Monocyte Abs 0.8 0.3 - 0.9 [facility] x10(3)/[facility] LABORATORY Eosinophils % 4.0 % [facility] LABORATORY Eosinophils Abs 0.4 0.0 - 0.4 [facility] x10(3)/[facility] LABORATORY Basophils % 0.6 % [facility] LABORATORY Basophils Abs 0.0 0.0 - 0.1 [facility] x10(3)/[facility] LABORATORY Immature Gran [...] Smith MD HEMATOLOGY ORDERABLES Performing Organization Address City/[facility]/ZIP Code Phon e Number [address] (ABNORMAL) Hemogram (08/15/2017 6:22 AM EST) Analysis Performed At Patho logist Time Signature WBC 8.7 4.0 - 9.5 [facility](3[facility] LABORATORY RBC 3.21 (L) 4.58 - [place] 5.54 [facility] x10(6)/[facility] LABORATORY Hemoglobin 9.1 (L) 13.7 - [facility]/dL [facility] LABORATORY Hematocrit 29.0 (L) 40.5 - [facility] 48.5 % [facility] LABORATORY MCV 90.3 82.9 - [facility] 93.1 [facility] LABORATORY MCH 28.3 27.5 - [facility] 32.1 pg [facility] LABORATORY MCHC 31.4 (L) 32.0 - [facility] 35.7 gm/dL [facility] LABORATORY Platelets 254 145 - 357 [facility] x10(3)/[facility] LABORATORY RDWSD 53.9 (H) 36.0 - [facility] 45.0 [facility] LABORATORY RDWCV 16.3 (H) 11.4 - [facility] 13.8 % [facility] LABORATORY MPV 8.8 7.6 - 12.9 [facility] LABORATORY nRBC % Auto 0.0 % [facility] LABORATORY nRBC Abs Auto 0.000 0.000 - [facility] 0.000 [facility] x10(3)/[facility] LABORATORY Specimen Anatomical Collection Method Collection Time Receive d Time (Source) Location / / Volume Laterality Blood specimen 08/15/2017 6:22 AM 018 6:33 (specimen) EST AM EST Resulting Agency Comment Spec In Lab Yonathan Smith MD HEMATOLOGY ORDERABLES Performing Organization Address City/State/ZIP Code Phon e Number [facility] [place] [address] (ABNORMAL) Basic Metabolic Panel (non-fasting) (08/15/2017 6:22 AM EST) P athologist Signature Glucose Lvl 118 65 - 199 [facility] mg/dL [facility] [...] or in patients with acute kidney failure. [email or web address] [email or web address]/DHMCnkf Specimen Anatomical Collection Method Collection Time Receive d Time (Source) Location / / Volume Laterality Blood specimen 08/15/2017 6:22 AM 018 6:33 (specimen) EST AM EST Resulting Agency Comment Spec In Lab Yonathan Smith MD CHEMISTRY ORDERABLES Performing Organization Address City/State/ZIP Code Phon e Number [address] (ABNORMAL) Prothrombin Time (08/15/2017 [...] Address City/State/ZIP Code Phon e Number [address] POCT Glucose (08/15/2017 4:33 AM EST) athologist Signature POC Glucose 164 65 - 199 [facility] [...] Address City/State/ZIP Code Phon e Number [address] POCT Glucose (08/15/2017 12:12 AM EST) athologist Signature POC Glucose 89 65 - 199 [facility]dL [facility] [...] Address City/State/ZIP Code Phon e Number [address] (ABNORMAL) POCT Glucose (08/14/2017 [...] [facility] [address] POCT Glucose (08/14/2017 5:11 [...] Organization Address City/State/[place] [address] POCT Glucose (08/14/2017 12:10 [...] Address City/State/ZIP Code Phon e Number [address] POCT Glucose (08/14/2017 8:07 AM EST) P athologist Signature POC Glucose 158 65 - 199 [facility] mg/dL [facility] - [...] Address City/State/ZIP Code Phon e Number [address] (ABNORMAL) Differential, Automated (08/14/2017 4:52 AM EST) Patholo gist Method Time Signature Neutrophils % 78.6 % [facility] LABORATORY Neutr Abs (ANC) 7.70 (H) 1.70 - [facility] 6.10 [facility] x10(3)/[facility] LABORATORY Lymphocytes % 7.8 % [facility] LABORATORY Lymphocytes Abs 0.8 (L) 0.9 - 3.2 [facility] x10(3)/[facility] LABORATORY Monocytes % 8.8 % [facility] LABORATORY Monocyte Abs 0.9 0.3 - 0.9 [facility] x10(3)/[facility] LABORATORY Eosinophils % 4.0 % [facility] LABORATORY Eosinophils Abs 0.4 0.0 - 0.4 [facility] x10(3)/[facility] LABORATORY Basophils % 0.5 % [facility] LABORATORY Basophils Abs 0.0 0.0 - 0.1 [facility] x10(3)/[facility] LABORATORY Immature Gran % 0.30 [...] - 0.04 x10(3)/[facility] LABORATORY Specimen Anatomical Collection Method Collection Time Receive d Time (Source) Location / / Volume Laterality Blood specimen 08/14/2017 4:52 AM 018 5:08 (specimen) EST AM EST Resulting Agency Comment Spec In Lab Yonathan Smith MD HEMATOLOGY ORDERABLES Performing Organization Address City/State/[place] [address] (ABNORMAL) Hemogram (08/14/2017 4:52 AM EST) Analysis Performed At Patho logist Time Signature WBC 9.8 (H) 4.0 - 9.5 [facility] x10(3)/[facility] LABORATORY RBC 3.32 (L) 4.58 - [facility] 5.54 [facility] x10(6)/[facility] LABORATORY Hemoglobin 9.5 (L) 13.7 - [facility] 16.5 gm/dL [facility] LABORATORY Hematocrit 30.3 (L) 40.5 - [facility] 48.5 % [facility] LABORATORY MCV 91.3 82.9 - [facility] 93.1 [facility] LABORATORY MCH 28.6 27.5 - [facility] 32.1 pg [facility] LABORATORY MCHC 31.4 (L) 32.0 - [facility] 35.7 gm/dL [facility] LABORATORY Platelets 263 145 - 357 [facility] x10(3)/[facility] LABORATORY RDWSD 54.8 (H) 36.0 - [facility] 45.0 [facility] LABORATORY RDWCV 16.5 (H) 11.4 - [facility] 13.8 % [facility] LABORATORY MPV 9.1 7.6 - 12.9 [facility] LABORATORY nRBC % Auto 0.0 % [facility] LABORATORY nRBC Abs Auto 0.000 0.000 - [facility] 0.000 [facility] x10(3)/[facility] LABORATORY Specimen Anatomical Collection Method Collection Time Receive d Time (Source) Location / / Volume Laterality Blood specimen 08/14/2017 4:52 AM 018 5:08 (specimen) EST AM EST Resulting Agency Comment Spec In Lab Yonathan Smith MD HEMATOLOGY ORDERABLES Performing Organization Address City/[facility]/[place] [address] (ABNORMAL) Prothrombin Time (08/14/2017 [...] Smith MD HEMATOLOGY ORDERABLES Performing Organization Address City/[facility]/[place] [address] (ABNORMAL) Basic Metabolic Panel (non-fasting) (08/14/2017 4:52 AM EST) athologist Signature Glucose Lvl 135 65 - 199 [facility] mg/dL [facility] - [...] or in patients with acute kidney failure. [email or web address] [email or web address] Specimen Anatomical Collection Method Collection Time Receive d Time (Source) Location / / Volume Laterality Blood specimen 08/14/2017 4:52 AM 018 5:08 (specimen) EST AM EST Resulting Agency Comment Spec In Lab Yonathan Smith MD CHEMISTRY ORDERABLES Performing Organization Address City/[facility]/ZIP Code Phon e Number [address] POCT Glucose (08/14/2017 3:56 AM EST) P athologist Signature POC Glucose 135 65 - 199 [facility] mg/dL [facility] [...] [facility] [address] POCT Glucose (08/13/2017 11:13 PM EST) athologist Signature POC Glucose 118 65 - 199 [place] mg/dL [facility] [...] Organization Address City/State/[place] [address] (ABNORMAL) POCT Glucose (08/13/2017 8:08 PM EST) athologist Signature POC Glucose 204 (H) 65 - 199 [facility]dL [facility] - [...] Organization Address City/State/[place] [address] POCT Glucose (08/13/2017 4:02 PM EST) athologist Signature POC Glucose 145 65 - 199 [facility] mg/dL [facility] [...] Organization Address City/State/[place] [address] POCT Glucose (08/13/2017 11:31 AM EST) athologist Signature POC Glucose 179 65 - 199 [facility]/dL [facility] [...] [facility] [address] (ABNORMAL) POCT Glucose (08/13/2017 10:16 AM EST) athologist Signature POC Glucose 211 (H) 65 - 199 [facility]/dL [facility] [...] [facility]/[place] [address] JULIAN, legs, multiple levels (08/13/2017 7:42 AM EST) Component Value Ref Test Analysis Performed At [facility] Method Time Signature VB Text Department: Vascular Surgery Lab VASCUBASE Report Patient: [id number] (GREGORY HOANG) CPT: 37321 ICD10: I99.8 Referring Physician: YONATHAN SMITH ?? Indications: s/p R 1,2,3 toe amps with red left foot, need n ew baseline Diabetes mellitus: yes ICD10 Diagnosis Code: I99.8 Findings: Right ?Pressure (mm Hg) ?? JULIAN ??Waveform ?TBI ?? Brachial Artery ?138 ? Dorsalis Pedis (Ankle) Arter y ?132 ? 0.94 ??[place]- Biphasic ? Posterior Tibial (Ankle) Art anila ??154 ? 1.10 ??[place]-Biphasic ? Fourth Toe ? 67 ? 0.48 [...] Signature POC Glucose 156 65 - 199 [facility] mg/dL [facility] - [...] Organization Address City/State/[place] [address] (ABNORMAL) Differential, Automated (08/13/2017 5:33 AM EST) Patholo gist Method Time Signature Neutrophils % 77.8 % [facility] LABORATORY Neutr Abs (ANC) 7.83 (H) 1.70 - [facility] 6.10 [facility] x10(3)/[facility] LABORATORY Lymphocytes % 8.4 % [facility] LABORATORY Lymphocytes Abs 0.8 (L) 0.9 - 3.2 [facility] x10(3)/[facility] LABORATORY Monocytes % 8.3 % [facility] LABORATORY Monocyte Abs 0.8 0.3 - 0.9 [facility] x10(3)/[facility] LABORATORY Eosinophils % 4.6 % [facility] LABORATORY Eosinophils Abs 0.5 (H) 0.0 - 0.4 [facility] x10(3)/[facility] LABORATORY Basophils % 0.5 % [facility] LABORATORY Basophils Abs 0.0 0.0 - 0.1 [facility] x10(3)/[facility] LABORATORY Immature Gran % 0.40 [...] - 0.04 x10(3)/[facility] LABORATORY Specimen Anatomical Collection Method Collection Time Receive d Time (Source) Location / / Volume Laterality Blood specimen 08/13/2017 5:33 AM 018 6:04 (specimen) EST AM EST Resulting Agency Comment Spec In Lab Yonathan Smith MD HEMATOLOGY ORDERABLES Performing Organization Address City/State/ZIP Code Phon e Number [place] [id number]OS[address] LAB[address]ORY Drive (ABNORMAL) Hemogram (08/13/2017 5:33 AM EST) Analysis Performed At Patho logist Time Signature WBC 10.1 (H) 4.0 - 9.5 [facility] x10(3)/[facility] LABORATORY RBC 3.21 (L) 4.58 - [facility] 5.54 [facility] x10(6)/[facility] LABORATORY Hemoglobin 9.2 (L) 13.7 - [facility] 16[facility] gm/dL [facility] LABORATORY Hematocrit 29.6 (L) 40.5 - [facility] 48.5 % [facility] LABORATORY MCV 92.2 82.9 - [facility] 93.1 [facility] LABORATORY MCH 28.7 27.5 - [facility] 32.1 pg [facility] LABORATORY MCHC 31.1 (L) 32.0 - [facility] 35.[facility] gm/dL [facility] LABORATORY Platelets 263 145 - 357 [facility] x10(3)/[facility] LABORATORY RDWSD 54.8 (H) 36.0 - [facility] 45.0 [facility] LABORATORY RDWCV 16.4 (H) 11.4 - [facility] 13.8 % [facility] LABORATORY MPV 9.2 7.6 - 12.9 [facility] LABORATORY nRBC % Auto 0.0 % [facility] LABORATORY nRBC Abs Auto 0.000 0.000 - [facility] 0.000 [facility] x10(3)/[facility] LABORATORY Specimen Anatomical Collection Method Collection Time Receive d Time (Source) Location / / Volume Laterality Blood specimen 08/13/2017 5:33 AM 018 6:04 (specimen) EST AM EST Resulting Agency Comment Spec In Lab Yonathan Smith MD HEMATOLOGY ORDERABLES Performing Organization Address City/State/[place] [address] (ABNORMAL) Prothrombin Time (08/13/2017 [...] Organization Address City/State/[place] [address] (ABNORMAL) Basic Metabolic Panel (non-fasting) (08/13/2017 5:33 AM EST) P athologist Signature Glucose Lvl 126 65 - 199 [facility] mg/dL [facility] - [...] or in patients with acute kidney failure. [email or web address] [email or web address] Specimen Anatomical Collection Method Collection Time Receive d Time (Source) Location / / Volume Laterality Blood specimen 08/13/2017 5:33 AM 018 6:04 (specimen) EST AM EST Resulting Agency Comment Spec In Lab Yonathan Smith MD CHEMISTRY ORDERABLES Performing Organization Address City/State/ZIP Code Phon e Number [address] POCT Glucose (08/13/2017 4:29 AM EST) athologist Signature POC Glucose 111 65 - 199 [place] [facility] mg/dL [facility] [...] [facility] [address] POCT Glucose (08/12/2017 11:28 [...] [facility]/ZIP Code Phon e Number [address] (ABNORMAL) POCT Glucose (08/12/2017 [...] Address City/State/ZIP Code Phon e Number [address] POCT Glucose (08/12/2017 4:24 PM EST) athologist Signature POC Glucose 161 65 - 199 [facility] mg/dL [facility], [...] Address City/State/ZIP Code Phon e Number [address] POCT Glucose (08/12/2017 12:00 PM EST) athologist Signature POC Glucose 167 65 - 199 [place] [facility] mg/dL [facility] [...] Address City/State/ZIP Code Phon e Number [address] POCT Glucose (08/12/2017 7:25 [...] Organization Address City/State/[place] [address] (ABNORMAL) Differential, Automated (08/12/2017 6:29 AM EST) [facility] Method Time Signature Neutrophils % 78.7 % [facility] LABORATORY Neutr Abs (ANC) 7.94 (H) 1.70 - [facility] 6.10 [facility] x10(3)/[facility] LABORATORY Lymphocytes % 8.8 % [facility] LABORATORY Lymphocytes Abs 0.9 0.9 - 3.2 [facility] x10(3)/[facility] LABORATORY Monocytes % 7.8 % [facility] LABORATORY Monocyte Abs 0.8 0.3 - 0.9 [facility] x10(3)/[facility] LABORATORY Eosinophils % 3.9 % [facility] LABORATORY Eosinophils Abs 0.4 0.0 - 0.4 [facility] x10(3)/[facility] LABORATORY Basophils % 0.3 % [facility] LABORATORY Basophils Abs 0.0 0.0 - 0.1 [facility] x10(3)/[facility] LABORATORY Immature Gran % 0.50 [...] Address City/State/ZIP Code Phon e Number [address] (ABNORMAL) Hemogram (08/12/2017 6:29 AM EST) Analysis Performed At Patho logist Time Signature WBC 10.1 (H) 4.0 - 9.5 [facility](3[facility] LABORATORY RBC 3.02 (L) 4.58 - [place] [facility] 5.54 [facility] x10(6)/[facility] LABORATORY Hemoglobin 8.7 (L) 13.7 - [facility] 16.5 gm/dL [facility] LABORATORY Hematocrit 28.1 (L) 40.5 - [facility] 48.5 % [facility] LABORATORY MCV 93.0 82.9 - [facility] 93.1 [facility] LABORATORY MCH 28.8 27.5 - [place] 32.1 pg [facility] LABORATORY MCHC 31.0 (L) 32.0 - [place] [facility] 35.7 gm/dL [facility] LABORATORY Platelets 223 145 - 357 [facility] x10(3)/[facility] LABORATORY RDWSD 56.1 (H) 36.0 - [place] 45.0 [facility] LABORATORY RDWCV 16.4 (H) 11.4 - [facility] 13.8 % [facility] LABORATORY MPV 9.0 7.6 - 12.9 [facility] LABORATORY nRBC % Auto 0.0 % [facility] LABORATORY nRBC Abs Auto 0.000 0.000 - [place] [facility] 0.000 [facility] x10(3)/[facility] LABORATORY Specimen Anatomical Collection Method Collection Time Receive d Time (Source) Location / / Volume Laterality Blood specimen 08/12/2017 6:29 AM 018 6:38 (specimen) EST AM EST Resulting Agency Comment Spec In Lab Yonathan Smith MD HEMATOLOGY ORDERABLES Performing Organization Address City/State/[place] [address] (ABNORMAL) Prothrombin Time (08/12/2017 [...] Organization Address City/State/[place] [address] (ABNORMAL) Basic Metabolic Panel (non-fasting) (08/12/2017 6:29 AM EST) athologist Signature Glucose Lvl 151 65 - 199 [facility] mg/dL [facility] - [...] or in patients with acute kidney failure. [email or web address] [email or web address] Specimen Anatomical Collection Method Collection Time Receive d Time (Source) Location / / Volume Laterality Blood specimen 08/12/2017 6:29 AM 018 6:38 (specimen) EST AM EST Resulting Agency Comment Spec In Lab Yonathan Smith MD CHEMISTRY ORDERABLES Performing Organization Address City/[facility]/ZIP Code Phon e Number [address] POCT Glucose (08/12/2017 4:08 AM EST) athologist Signature POC Glucose 181 65 - 199 [facility]/dL [facility], [...] Organization Address City/State/[place] [address] (ABNORMAL) POCT Glucose (08/12/2017 12:17 AM EST) P athologist Signature POC Glucose 221 (H) 65 - 199 [facility] mg/dL [facility] [...] [facility]/ZIP Code Phon e Number [address] (ABNORMAL) POCT Glucose (08/11/2017 [...] [facility] [address] POCT Glucose (08/11/2017 5:59 [...] [facility] [address] (ABNORMAL) POCT Glucose (08/11/2017 [...] Address City/State/ZIP Code Phon e Number [address] POCT Glucose (08/11/2017 12:04 PM EST) athologist Signature POC Glucose 182 65 - 199 [facility] mg/dL [facility] - [...] Address City/State/ZIP Code Phon e Number [address] POCT Glucose (08/11/2017 7:31 AM EST) athologist Signature POC Glucose 156 65 - 199 [facility] mg/dL [facility] - [...] Address City/State/ZIP Code Phon e Number [address] (ABNORMAL) Differential, Automated (08/11/2017 6:16 AM EST) [facility] gist Method Time Signature Neutrophils % 83.7 % [facility] LABORATORY Neutr Abs (ANC) 10.76 (H) 1.70 - [facility] 6.10 [facility] x10(3)/[facility] LABORATORY Lymphocytes % 6.0 % [facility] LABORATORY Lymphocytes Abs 0.8 (L) 0.9 - 3.2 [facility] x10(3)/[facility] LABORATORY Monocytes % 7.5 % [facility] LABORATORY Monocyte Abs 1.0 (H) 0.3 - 0.9 [facility] x10(3)/[facility] LABORATORY Eosinophils % 2.0 % [facility] LABORATORY Eosinophils Abs 0.3 0.0 - 0.4 [facility] x10(3)/[facility] LABORATORY Basophils % 0.3 % [facility] LABORATORY Basophils Abs 0.0 0.0 - 0.1 [facility] x10(3)/[facility] LABORATORY Immature Gran % 0.50 [...] Organization Address City/State/[place] [address] (ABNORMAL) Hemogram (08/11/2017 6:16 AM EST) Analysis Performed At Patho logist Time Signature WBC 12.9 (H) 4.0 - 9.5 [facility] x10(3)/[facility] LABORATORY RBC 3.28 (L) 4.58 - [facility] 5.54 [facility] x10(6)/[facility] LABORATORY Hemoglobin 9.5 (L) 13.7 - [facility] 16.5 gm/dL [facility] LABORATORY Hematocrit 29.8 (L) 40.5 - [facility] 48.5 % [facility] LABORATORY MCV 90.9 82.9 - [facility] 93.1 [facility] LABORATORY MCH 29.0 27.5 - [place] 32.1 pg [facility] LABORATORY MCHC 31.9 (L) 32.0 - [place] [facility] 35.7 gm/dL [facility] LABORATORY Platelets 236 145 - 357 [facility] x10(3)/[facility] LABORATORY RDWSD 53.5 (H) 36.0 - [facility] 45.0 [facility] LABORATORY RDWCV 16.3 (H) 11.4 - [facility] 13.8 % [facility] LABORATORY MPV 8.8 7.6 - 12.9 [facility] LABORATORY nRBC % Auto 0.0 % [facility] LABORATORY nRBC Abs Auto 0.000 0.000 - [facility] 0.000 [facility] x10(3)/[facility] LABORATORY Specimen Anatomical Collection Method Collection Time Receive d Time (Source) Location / / Volume Laterality Blood specimen 08/11/2017 6:16 AM 018 6:24 (specimen) EST AM EST Resulting Agency Comment Spec In Lab Yonathan Smith MD HEMATOLOGY ORDERABLES Performing Organization Address City/State/[place] [address] (ABNORMAL) Prothrombin Time (08/11/2017 [...] Smith MD HEMATOLOGY ORDERABLES Performing Organization Address City/[facility]/[place] [address] Basic Metabolic Panel (non-fasting) (08/11/2017 6:16 AM EST) athologist Signature Glucose Lvl 139 65 - 199 [facility] mg/dL [facility] [...] or in patients with acute kidney failure. [email or web address]/DHnkdep [email or web address]/DHMCnkf Specimen Anatomical Collection Method Collection Time Receive d Time (Source) Location / / Volume Laterality Blood specimen 08/11/2017 6:16 AM 018 6:24 (specimen) EST AM EST Resulting Agency Comment Spec In Lab Yonathan Smith MD CHEMISTRY ORDERABLES Performing Organization Address City/[facility]/ZIP Code Phon e Number [address] POCT Glucose (08/11/2017 4:07 AM EST) athologist Signature POC Glucose 162 65 - 199 [place] mg/dL [facility] [...] Address City/State/ZIP Code Phon e Number [address] POCT Glucose (08/10/2017 11:59 PM EST) athologist Signature POC Glucose 166 65 - 199 [place] [facility] mg/dL [facility] [...] Organization Address City/State/[place] [address] POCT Glucose (08/10/2017 8:12 PM EST) athologist Signature POC Glucose 156 65 - 199 [facility] mg/dL [facility] [...] Organization Address City/State/[place] [address] (ABNORMAL) POCT Glucose (08/10/2017 4:42 PM EST) P athologist Signature POC Glucose 211 (H) 65 - 199 [facility] mg/dL [facility] - [...] City/State/ZIP Code Phon e Number [place] [id number] HOSPITAL LAB[address]ORY Drive (ABNORMAL) Differential, Automated (08/10/2017 2:30 PM EST) Patholo gist Method Time Signature Neutrophils % 87.6 % [facility] LABORATORY Neutr Abs (ANC) 9.90 (H) 1.70 - [facility] 6.10 [facility] x10(3)/[facility] L LABORATORY Lymphocytes % 4.3 % [facility] LABORATORY Lymphocytes Abs 0.5 (L) 0.9 - 3.2 [facility] x10(3)/[facility] LABORATORY Monocytes % 6.0 % [facility] LABORATORY Monocyte Abs 0.7 0.3 - 0.9 [facility] x10(3)/[facility] LABORATORY Eosinophils % 1.1 % [facility] LABORATORY Eosinophils Abs 0.1 0.0 - 0.4 [facility] x10(3)/[facility] LABORATORY Basophils % 0.4 % [facility] LABORATORY Basophils Abs 0.0 0.0 - 0.1 [facility] x10(3)/[facility] LABORATORY Immature Gran [...] Organization Address City/State/[place] [address] (ABNORMAL) Hemogram (08/10/2017 2:30 PM EST) Analysis Performed At Patho logist Time Signature WBC 11.3 (H) 4.0 - 9.5 [facility] x10(3)/[facility] LABORATORY RBC 3.13 (L) 4.58 - [facility] 5.54 [facility] x10(6)/[facility] LABORATORY Hemoglobin 8.9 (L) 13.7 - [facility] 16.5 gm/dL [facility] LABORATORY Hematocrit 28.4 (L) 40.5 - [facility] 48.5 % [facility] LABORATORY MCV 90.7 82.9 - [facility]1 [facility] LABORATORY MCH 28.4 27.5 - [facility] 32.1 pg [facility] LABORATORY MCHC 31.3 (L) 32.0 - [facility] 35.[facility] gm/dL [facility] LABORATORY Platelets 213 145 - 357 [facility] x10(3)/[facility] LABORATORY RDWSD 53.7 (H) 36.0 - [facility] 45.0 [facility] LABORATORY RDWCV 16.4 (H) 11.4 - [facility] 13.8 % [facility] LABORATORY MPV 8.9 7.6 - 12.9 [facility] LABORATORY nRBC % Auto 0.0 % [facility] LABORATORY nRBC Abs Auto 0.000 0.000 - [facility] 0.000 [facility] x10(3)/[facility] LABORATORY Specimen Anatomical Collection Method Collection Time Receive d Time (Source) Location / / Volume Laterality Blood specimen 08/10/2017 2:30 PM 018 2:48 (specimen) EST PM EST Resulting Agency Comment Spec In Lab Yonathan Smith MD HEMATOLOGY ORDERABLES Performing Organization Address City/State/ZIP Code Phon e Number [address] (ABNORMAL) POCT Glucose (08/10/2017 1:50 PM EST) athologist Signature POC Glucose 243 (H) 65 - 199 [facility]/dL [facility]/ZIP Code Phon e Number [address] POCT Glucose (08/10/2017 11:21 AM EST) athologist Signature POC Glucose 156 65 - 199 [facility] mg/dL [facility] [...] [facility]/[place] [address] (ABNORMAL) Differential, Automated (08/10/2017 10:28 AM EST) [facility] Time Signature Neutrophils % 85.3 % [facility] LABORATORY Neutr Abs (ANC) 9.43 (H) 1.70 - [facility] 6.10 [facility] x10(3)/[facility] L LABORATORY Lymphocytes % 5.5 % [facility] LABORATORY Lymphocytes Abs 0.6 (L) 0.9 - 3.2 [facility] x10(3)/[facility] LABORATORY Monocytes % 5.9 % [facility] LABORATORY Monocyte Abs 0.6 0.3 - 0.9 [facility] x10(3)/[facility] LABORATORY Eosinophils % 2.1 % [facility] LABORATORY Eosinophils Abs 0.2 0.0 - 0.4 [facility] x10(3)/[facility] LABORATORY Basophils % 0.4 % [facility] LABORATORY Basophils Abs 0.0 0.0 - 0.1 [facility] x10(3)/[facility] LABORATORY Immature Gran % 0.80 [...] Organization Address City/State/[place] [address] (ABNORMAL) Hemogram (08/10/2017 10:28 AM EST) Analysis Performed At Patho logist Time Signature WBC 11.0 (H) 4.0 - 9.5 [facility] x10(3)/[facility] LABORATORY RBC 3.02 (L) 4.58 - [facility] 5.54 [facility] x10(6)/[facility] LABORATORY Hemoglobin 8.8 (L) 13.7 - [facility] 16.[facility] gm/dL [facility] LABORATORY Hematocrit 28.1 (L) 40.5 - [facility] 48.5 % [facility] LABORATORY MCV 93.0 82.9 - [facility] 93.1 [place] MCH 29.1 27.5 - [place] 32.1 pg [facility] MCHC 31.3 (L) 32.0 - [place] 35.7 gm/dL [facility] Platelets 207 145 - 357 [facility] x10(3)/[facility] LABORATORY RDWSD 55.3 (H) 36.0 - [place] [facility] 45.0 [place] RDWCV 16.4 (H) 11.4 - [facility] 13.8 % [facility] MPV 9.0 7.6 - 12.9 [facility] LABORATORY nRBC % Auto 0.0 % [facility] nRBC Abs Auto 0.000 0.000 - [facility] 0.000 [facility] x10(3)/[facility] LABORATORY Specimen Anatomical Collection Method Collection Time Receive d Time (Source) Location / / Volume Laterality Blood specimen 08/10/2017 10:28 8 (specimen) AM EST 10:35 AM EST Resulting Agency Comment Spec In Lab Yonathan Smith MD HEMATOLOGY ORDERABLES Performing Organization Address City/State/[place] [address] VS Angiogram/intervention (vascular) (08/10/2017 [...] 2.5x80 5. Completion RLE angiogram 6. L RESIDENTIAL ASSISTANT angiogram 7. 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 - L RESIDENTIAL ASSISTANT angriogram demonstrated: High fe moral bifurcation over the proximal half of the femoral head. L RESIDENTIAL ASSISTANT access in the distal L RESIDENTIAL ASSISTANT. - Closure device: Mynx Technical Procedure: [...] for a 45cm 5F Destination. V18 and [place] a nd QuickCross catheters were used to [...] bifurcation. Access appeared in the distal R RESIDENTIAL ASSISTANT. Closure and sheath removal was performed [...] 2.5x80 5. Completion RLE angiogram 6. L RESIDENTIAL ASSISTANT angiogram 7. 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 - L RESIDENTIAL ASSISTANT angriogram demonstrated: High fe moral bifurcation over the proximal half of the femoral head. L RESIDENTIAL ASSISTANT access in the distal L RESIDENTIAL ASSISTANT. - Closure device: Mynx Technical Procedure: [...] for a 45cm 5F Destination. V18 and [place] a nd QuickCross catheters were used to [...] bifurcation. Access appeared in the distal R RESIDENTIAL ASSISTANT. Closure and sheath removal was performed [...] (ABNORMAL) Differential, Automated (08/10/2017 5:50 AM EST) [facility] gist Method Time Signature Neutrophils % 80.1 % [facility] LABORATORY Neutr Abs (ANC) 9.01 (H) 1.70 - [facility] 6.10 [facility] x10(3)/[facility] LABORATORY Lymphocytes % 8.8 % [facility] LABORATORY Lymphocytes Abs 1.0 0.9 - 3.2 [facility] x10(3)/[facility] LABORATORY Monocytes % 8.3 % [facility] LABORATORY Monocyte Abs 0.9 0.3 - 0.9 [facility] x10(3)/[facility] LABORATORY Eosinophils % 2.0 % [facility] LABORATORY Eosinophils Abs 0.2 0.0 - 0.4 [facility] x10(3)/[facility] LABORATORY Basophils % 0.4 % [facility] LABORATORY Basophils Abs 0.0 0.0 - 0.1 [facility] x10(3)/[facility] LABORATORY Immature Gran % 0.40 [...] Organization Address City/State/[place] [address] (ABNORMAL) Hemogram (08/10/2017 5:50 AM EST) Analysis Performed At Patho logist Time Signature WBC 11.3 (H) 4.0 - 9.5 [facility] x[facility](3[facility] LABORATORY RBC 3.15 (L) 4.58 - [facility] 5.54 [facility] x10(6)/[facility] LABORATORY Hemoglobin 8.9 (L) 13.7 - [facility] 16.[facility] gm/dL [facility] LABORATORY Hematocrit 29.0 (L) 40.5 - [facility] 48.5 % [facility] LABORATORY MCV 92.1 82.9 - [facility] 93.1 [facility] LABORATORY MCH 28.3 27.5 - [facility] 32.1 pg [facility] LABORATORY MCHC 30.7 (L) 32.0 - [facility] 35.7 gm/dL [facility] LABORATORY Platelets 231 145 - 357 [facility] x10(3)/[facility] LABORATORY RDWSD 53.9 (H) 36.0 - [facility] 45.0 [facility] LABORATORY RDWCV 16.2 (H) 11.4 - [facility] 13.8 % [facility] LABORATORY MPV 8.7 7.6 - 12.9 [facility] LABORATORY nRBC % Auto 0.0 % [facility] LABORATORY nRBC Abs Auto 0.000 0.000 - [facility] 0.000 [facility] x10(3)/[facility] LABORATORY Specimen Anatomical Collection Method Collection Time Receive d Time (Source) Location / / Volume Laterality Blood specimen 08/10/2017 5:50 AM 018 5:59 (specimen) EST AM EST Resulting Agency Comment Spec In Lab Yonathan Smith MD HEMATOLOGY ORDERABLES Performing Organization Address City/State/[place] [address] (ABNORMAL) Basic Metabolic Panel (non-fasting) (08/10/2017 5:50 AM EST) athologist Signature Glucose Lvl 135 65 - 199 [facility] mg/dL [facility] - [...] or in patients with acute kidney failure. [email or web address] [email or web address] Specimen Anatomical Collection Method Collection Time Receive d Time (Source) Location / / Volume Laterality Blood specimen 08/10/2017 5:50 AM 018 5:59 (specimen) EST AM EST Resulting Agency Comment Spec In Lab Yonathan Smith MD CHEMISTRY ORDERABLES Performing Organization Address City/[facility]/[place] [address] (ABNORMAL) Prothrombin Time (08/10/2017 [...] Smith MD HEMATOLOGY ORDERABLES Performing Organization Address City/[facility]/[place] [address] (ABNORMAL) POCT Glucose (08/10/2017 4:01 AM EST) athologist Signature POC Glucose 206 (H) 65 - 199 [facility] mg/dL [facility] - [...] [facility]/ZIP [place] [address] POCT Glucose (08/10/2017 2:01 AM EST) athologist Signature POC Glucose 188 65 - 199 [place] mg/dL SELECT [...] Organization Address City/State/[place] [address] (ABNORMAL) POCT Glucose (08/09/2017 11:42 PM EST) athologist Signature POC Glucose 283 (H) 65 - 199 [facility] mg/dL [facility] - [...] Organization Address City/State/[place] [address] POCT Glucose (08/09/2017 8:55 PM EST) athologist Signature POC Glucose 182 65 - 199 [place] mg/dL [facility], [...] Organization Address City/State/[place] [address] (ABNORMAL) APTT (08/09/2017 6:42 PM EST) athologist Signature PTT 90 (H) 25 - 35 sec [facility] LABORATORY Comment: The recommended therapeutic range for fu ll dose, unfractionated heparin at [facility] is [...] Smith MD HEMATOLOGY ORDERABLES Performing Organization Address City/[facility]/ZIP [facility] Phon e Number [address] POCT Glucose (08/09/2017 4:41 PM EST) athologist Signature POC Glucose 195 65 - 199 [facility] mg/dL [facility], [...] [facility]/[place] [address] POCT Glucose (08/09/2017 12:29 PM EST) athologist Signature POC Glucose 140 65 - 199 [facility] mg/dL [facility] - [...] Organization Address City/State/[place] [address] POCT Glucose (08/09/2017 9:59 AM EST) P athologist Signature POC Glucose 135 65 - 199 [facility] mg/dL [facility] - [...] [facility]/[place] [address] Specimen to Pathology (08/09/2017 [...] [facility]/[place] [address] Surgical Pathology Report (08/09/2017 8:40 AM EST) Component Value Ref Test Analysis Performed At Patholo gist Range Method Time Signature Surgical [id number] ? Location: [facility]; [facility]; A [facility] Report The signing pathologist has (i) examined [...] Flower Verified: ??08/13/2017 ?Pathologist Performed at: ??-[facility] Dept. of [place]ology, [place], [place] CLINICAL INFORMATION Specimen Submitted: A - [...] Organization Address City/State/[place] [address] Anaerobic Culture (08/09/2017 8:30 AM EST) [facility] gist Method Time Signature Anaerobic No anaerobic [facility] Culture organisms [facility] LABORATORY Specimen Anatomical Collection Method [...] Organization Address City/State/[place] [address] (ABNORMAL) Abscess/Wound Aspirate Culture (08/09/2017 8:30 AM EST) Patholo gist Method Time Signature Abscess/Wound Moderate mixed [place] Aspirate bacterial [facility] Culture morphotypes [facility] normal LABORATORY cutaneous leroy (A) Gram Stain Rare White Blood Cells [place] Few Gram Positive Cocci in pairs [facility] () [facility] LABORATORY Organism Gram Positive [place] Cocci in pairs [facility] () [facility] [...] [facility]/ZIP Code Phon e Number [address] POCT Glucose (08/09/2017 4:28 AM EST) P athologist Signature POC Glucose 128 65 - 199 [facility] mg/dL [facility], [...] [facility]/[place] [address] ABORH Recheck Status (08/09/2017 1:10 AM EST) [facility] gist Method Time Signature ABORH Type Completed [facility] LABORATORY Specimen Anatomical Collection Method Collection Time Receive d Time (Source) Location / / Volume Laterality Blood specimen 08/09/2017 1:10 AM 018 1:35 (specimen) EST AM EST Resulting Agency Comment Spec In Lab Yonathan Smith MD BLOOD BANK ORDERABLES Performing Organization Address City/[facility]/[place] [address] Antibody screen (08/09/2017 1:10 AM EST) [facility] Method Time Signature Ab Screen Negative [facility] LABORATORY Expires at 08/12/2017 [facility] [id number] on: [facility] LABORATORY Specimen Anatomical Collection Method Collection Time Receive d Time (Source) Location / / Volume Laterality Blood specimen 08/09/2017 1:10 AM 018 1:35 (specimen) EST AM EST Resulting Agency Comment Spec In Lab Yonathan Smith MD BLOOD BANK ORDERABLES Performing Organization Address City/[facility]/[place] [address] ABO/Rh Typing (08/09/2017 1:10 AM EST) P athologist Signature ABORh Type O Pos [facility] LABORATORY Specimen Anatomical Collection Method Collection Time Receive d Time (Source) Location / / Volume Laterality Blood specimen 08/09/2017 1:10 AM 018 1:35 (specimen) EST AM EST Resulting Agency Comment Spec In Lab Yonathan Smith MD BLOOD BANK ORDERABLES Performing Organization Address City/[facility]/[place] [address] (ABNORMAL) APTT (08/09/2017 1:10 AM EST) P athologist Signature PTT 86 (H) 25 - 35 sec [facility] LABORATORY Comment: The recommended therapeutic range for fu ll dose, unfractionated heparin at [facility] [place] is [...] Organization Address City/State/[place] [address] (ABNORMAL) Differential, Automated (08/09/2017 1:10 AM EST) [facility] gist Method Time Signature Neutrophils % 76.2 % [facility] LABORATORY Neutr Abs (ANC) 8.59 (H) 1.70 - [facility] 6.10 [facility] x10(3)/[facility] LABORATORY Lymphocytes % 11.0 % [facility] LABORATORY Lymphocytes Abs 1.2 0.9 - 3.2 [facility] x10(3)/[facility] LABORATORY Monocytes % 8.4 % [facility] HOSPITAL LABORATORY Monocyte Abs 1.0 (H) 0.3 - 0.9 [facility] x10(3)/[facility] LABORATORY Eosinophils % 3.5 % [facility] LABORATORY Eosinophils Abs 0.4 0.0 - 0.4 [facility] x10(3)/[facility] LABORATORY Basophils % 0.5 % [facility] LABORATORY Basophils Abs 0.1 0.0 - 0.1 [facility] x10(3)/[facility] LABORATORY Immature Gran % 0.40 [...] Organization Address City/State/[place] [address] (ABNORMAL) Hemogram (08/09/2017 1:10 AM EST) Analysis Performed At Patho logist Time Signature WBC 11.3 (H) 4.0 - 9.5 [facility] x[facility](3[facility] LABORATORY RBC 3.47 (L) 4.58 - [facility]54 [facility] x10(6)/[facility] LABORATORY Hemoglobin 10.0 (L) 13.7 - [facility] 16.5 gm/dL [facility] LABORATORY Hematocrit 31.9 (L) 40.5 - [facility] 48.5 % [facility] LABORATORY MCV 91.9 82.9 - [facility] 93.1 [facility] LABORATORY MCH 28.8 27.5 - [facility] 32.1 pg [facility] LABORATORY MCHC 31.3 (L) 32.0 - [facility] 35.7 gm/dL [facility] LABORATORY Platelets 234 145 - 357 [facility] x10(3)/[facility] LABORATORY RDWSD 54.0 (H) 36.0 - [facility] 45.0 [facility] LABORATORY RDWCV 16.2 (H) 11.4 - [facility] 13.8 % [facility] LABORATORY MPV 8.7 7.6 - 12.9 [facility] LABORATORY nRBC % Auto 0.0 % [facility] LABORATORY nRBC Abs Auto 0.000 0.000 - [facility] 0.000 [facility] x10(3)/[facility] LABORATORY Specimen Anatomical Collection Method Collection Time Receive d Time (Source) Location / / Volume Laterality Blood specimen 08/09/2017 1:10 AM 018 1:19 (specimen) EST AM EST Resulting Agency Comment Spec In Lab Yonathan Smith MD HEMATOLOGY ORDERABLES Performing Organization Address City/State/[place] [address] (ABNORMAL) Prothrombin Time (08/09/2017 [...] City/State/ZIP Code Phon e Number [place] [id number] HOSPITAL LABORATORY Drive (ABNORMAL) Basic Metabolic Panel (non-fasting) (08/09/2017 1:10 AM EST) athologist Signature Glucose Lvl 108 65 - 199 [facility] mg/dL [facility] [...] or in patients with acute kidney failure. http://[email or web address] http://Marketocracy/DHnkf Specimen Anatomical Collection Method Collection Time Receive d Time (Source) Location / / Volume Laterality Blood specimen 08/09/2017 1:10 AM 018 1:19 (specimen) EST AM EST Resulting Agency Comment Spec In Lab Yonathan Smith MD CHEMISTRY ORDERABLES Performing Organization Address City/[facility]/ZIP Code Phon e Number [address] POCT Glucose (08/09/2017 12:05 AM EST) athologist Signature POC Glucose 128 65 - 199 [facility]dL [facility] [...] [facility]/[place] [address] (ABNORMAL) POCT Glucose (08/08/2017 7:36 PM EST) athologist Signature POC Glucose 215 (H) 65 - 199 [facility] mg/dL [facility], [...] [facility]/[place] [address] (ABNORMAL) POCT Glucose (08/08/2017 6:23 PM EST) athologist Signature POC Glucose 216 (H) 65 - 199 [facility] mg/dL [facility] [...] TEST ORDERABLE S Performing Organization Address [facility]/[place] [address] (ABNORMAL) APTT (08/08/2017 6:00 PM EST) athologist Signature PTT 97 (H) 25 - 35 sec [facility] LABORATORY Comment: The recommended therapeutic range for fu ll dose, unfractionated heparin at [facility] is [...] Smith MD HEMATOLOGY ORDERABLES Performing Organization Address City/[facility]/[place] [address] POCT Glucose (08/08/2017 4:42 PM EST) athologist Signature POC Glucose 78 65 - 199 [facility] mg/dL [facility] [...] Organization Address City/State/[place] [address] (ABNORMAL) POCT Glucose (08/08/2017 4:01 PM EST) P athologist Signature POC Glucose 58 (L) 65 - 199 [facility] mg/dL [facility] - [...] Organization Address City/State/[place] [address] POCT Glucose (08/08/2017 11:51 AM EST) P athologist Signature POC Glucose 90 65 - 199 [facility] mg/dL [facility] - [...] Address City/State/ZIP Code Phon e Number [address] (ABNORMAL) APTT (08/08/2017 10:27 AM EST) P athologist Signature PTT 64 (H) 25 - 35 sec [facility] LABORATORY Comment: The recommended therapeutic range for fu ll dose, unfractionated heparin at [facility] [place] is [...] Smith MD HEMATOLOGY ORDERABLES Performing Organization Address City/[facility]/ZIP Code Phon e Number [address] POCT Glucose (08/08/2017 8:02 AM EST) athologist Signature POC Glucose 178 65 - 199 [facility] mg/dL [facility] [...] [facility]/[place] [address] (ABNORMAL) APTT (08/08/2017 4:51 AM EST) athologist Signature PTT >160 25 - 35 [facility] (Critical) sec [facility] LABORATORY Comment: Called by: HOWARD, Read back by: Melba Jaramillo, Date/Time:08/08/17 05:43. The recommended therapeutic range for fu ll dose, unfractionated heparin at [facility] [place] is [...] Address City/State/ZIP [place] [address] (ABNORMAL) Differential, Automated (08/08/2017 4:51 AM EST) [facility] Method Time Signature Neutrophils % 77.9 % [facility] LABORATORY Neutr Abs (ANC) 8.17 (H) 1.70 - [facility] 6.10 [facility] x10(3)/[facility] LABORATORY Lymphocytes % 10.3 % [facility] LABORATORY Lymphocytes Abs 1.1 0.9 - 3.2 [facility] x10(3)/[facility] LABORATORY Monocytes % 7.0 % [facility] LABORATORY Monocyte Abs 0.7 0.3 - 0.9 [facility] x10(3)/[facility] LABORATORY Eosinophils % 3.6 % [facility] LABORATORY Eosinophils Abs 0.4 0.0 - 0.4 [facility] x10(3)/[facility] LABORATORY Basophils % 0.5 % [facility] LABORATORY Basophils Abs 0.0 0.0 - 0.1 [facility] x10(3)/[facility] LABORATORY Immature Gran % 0.70 [...] Organization Address City/State/[place] [address] (ABNORMAL) Hemogram (08/08/2017 4:51 AM EST) Analysis Performed At Patho logist Time Signature WBC 10.5 (H) 4.0 - 9.5 [facility] x[facility](3[facility] LABORATORY RBC 3.27 (L) 4.58 - [place] [facility] 5.54 [facility] x10(6)/[facility] LABORATORY Hemoglobin 9.3 (L) 13.7 - [facility] 16.5 gm/dL [facility] LABORATORY Hematocrit 30.3 (L) 40.5 - [facility] 48.5 % [facility] LABORATORY MCV 92.7 82.9 - [facility] 93.1 [facility] LABORATORY MCH 28.4 27.5 - [place] [facility] 32.1 pg [facility] LABORATORY MCHC 30.7 (L) 32.0 - [facility] 35.7 gm/dL [facility] LABORATORY Platelets 252 145 - 357 [facility] x10(3)/[facility] LABORATORY RDWSD 54.6 (H) 36.0 - [facility] 45.0 [facility] LABORATORY RDWCV 16.2 (H) 11.4 - [facility] 13.8 % [facility] LABORATORY MPV 9.1 7.6 - 12.9 [facility] LABORATORY nRBC % Auto 0.0 % [facility] LABORATORY nRBC Abs Auto 0.000 0.000 - [facility] 0.000 [facility] x10(3)/[facility] LABORATORY Specimen Anatomical Collection Method Collection Time Receive d Time (Source) Location / / Volume Laterality Blood specimen 08/08/2017 4:51 AM 018 5:14 (specimen) EST AM EST Resulting Agency Comment Spec In Lab Yonathan Smith MD HEMATOLOGY ORDERABLES Performing Organization Address City/State/ZIP Code Phon e Number [place] [id number] HOSPITAL LABORATORY Drive (ABNORMAL) Prothrombin Time (08/08/2017 [...] Organization Address City/State/[place] [address] (ABNORMAL) Basic Metabolic Panel (non-fasting) (08/08/2017 4:51 AM EST) athologist Signature Glucose Lvl 229 (H) 65 - 199 [facility] mg/dL [facility] [...] or in patients with acute kidney failure. http://Marketocracy/DHnkdep http://Marketocracy/DHMCnkf Specimen Anatomical Collection Method Collection Time Receive d Time (Source) Location / / Volume Laterality Blood specimen 08/08/2017 4:51 AM 018 5:14 (specimen) EST AM EST Resulting Agency Comment Spec In Lab Yonathan Smith MD CHEMISTRY ORDERABLES Performing Organization Address City/[facility] Phon e Number [address] POCT Glucose (08/08/2017 4:20 AM EST) athologist Signature POC Glucose 193 65 - 199 [facility] mg/dL [facility], [...] [facility]/ZIP Code Phon e Number [address] POCT Glucose (08/07/2017 11:11 PM EST) P athologist Signature POC Glucose 124 65 - 199 [facility] mg/dL [facility] [...] [facility]/[place] [address] (ABNORMAL) APTT (08/07/2017 10:18 PM EST) athologist Signature PTT 114 (H) 25 - 35 sec [facility] LABORATORY Comment: The recommended therapeutic range for fu ll dose, unfractionated heparin at [facility] [place] is [...] Smith MD HEMATOLOGY ORDERABLES Performing Organization Address [facility]/[place] [address] POCT Glucose (08/07/2017 8:10 PM EST) athologist Signature POC Glucose 140 65 - 199 [facility] mg/dL [facility], [...] [facility]/ZIP Code Phon e Number [address] POCT Glucose (08/07/2017 5:27 PM EST) athologist Signature POC Glucose 187 65 - 199 [facility] mg/dL [facility] - [...] [facility]/ZIP Code Phon e Number [address] POCT Glucose (08/07/2017 3:29 PM EST) athologist Signature POC Glucose 86 65 - 199 [facility] mg/dL [facility] LABORATORY Comment: Supplemental ranges: <140 mg/dL before meals <180 mg/dL all other times of the day Specimen Anatomical Collection Method Collection Time Receive d Time (Source) Location / / Volume Laterality Blood specimen 08/07/2017 3:29 PM 018 3:29 (specimen) EST PM EST Yonathan Smith MD POINT OF CARE TEST ORDERABLE S Performing Organization Address [facility] [place] [address] (ABNORMAL) APTT (08/07/2017 2:50 PM EST) athologist Signature PTT 60 (H) 25 - 35 sec [facility] LABORATORY Comment: The recommended therapeutic range for fu ll dose, unfractionated heparin at [facility] [place] is [...] Smith MD HEMATOLOGY ORDERABLES Performing Organization Address City/[facility]/ZIP [facility] [place] [address] (ABNORMAL) POCT Glucose (08/07/2017 2:23 PM EST) athologist Signature POC Glucose 55 (L) 65 - 199 [facility] mg/dL [facility], [...] Address City/State/ZIP Code Phon e Number [address] POCT Glucose (08/07/2017 12:08 PM EST) P athologist Signature POC Glucose 77 65 - 199 [facility] mg/dL [facility] - [...] Organization Address City/State/[place] [address] (ABNORMAL) Differential, Automated (08/07/2017 7:30 AM EST) Patholo gist Method Time Signature Neutrophils % 73.8 % [facility] LABORATORY Neutr Abs (ANC) 7.17 (H) 1.70 - [facility] 6.10 [facility] x10(3)/[facility] LABORATORY Lymphocytes % 12.2 % [facility] LABORATORY Lymphocytes Abs 1.2 0.9 - 3.2 [facility] x10(3)/[facility] LABORATORY Monocytes % 9.0 % [facility] LABORATORY Monocyte Abs 0.9 0.3 - 0.9 [facility] x10(3)/[facility] LABORATORY Eosinophils % 3.9 % [facility] LABORATORY Eosinophils Abs 0.4 0.0 - 0.4 [facility] x10(3)/[facility] LABORATORY Basophils % 0.6 % [facility] LABORATORY Basophils Abs 0.1 0.0 - 0.1 [facility] x10(3)/[facility] LABORATORY Immature Gran % 0.50 [...] Organization Address City/State/[place] [address] (ABNORMAL) Hemogram (08/07/2017 7:30 AM EST) Analysis Performed At Patho logist Time Signature WBC 9.7 (H) 4.0 - 9.5 [facility] x10(3)/[facility] LABORATORY RBC 3.54 (L) 4.58 - [facility] 5.54 [facility] x10(6)/[facility] LABORATORY Hemoglobin 9.9 (L) 13.7 - [facility] 16.5 gm/dL [facility] LABORATORY Hematocrit 32.3 (L) 40.5 - [facility] 48.5 % [facility] LABORATORY MCV 91.2 82.9 - [facility] 93.1 [facility] LABORATORY MCH 28.0 27.5 - [facility] 32.1 pg [facility] LABORATORY MCHC 30.7 (L) 32.0 - [facility] 35.7 gm/dL [facility] LABORATORY Platelets 312 145 - 357 [facility] x10(3)/[facility] LABORATORY RDWSD 53.2 (H) 36.0 - [facility] 45.0 [place] RDWCV 16.0 (H) 11.4 - [facility] 13.8 % [facility] LABORATORY MPV 8.9 7.6 - 12.9 [facility] LABORATORY nRBC % Auto 0.0 % [facility] LABORATORY nRBC Abs Auto 0.000 0.000 - [facility] 0.000 [facility] x10(3)/[facility] LABORATORY Specimen Anatomical Collection Method Collection Time Receive d Time (Source) Location / / Volume Laterality Blood specimen 08/07/2017 7:30 AM 018 7:45 (specimen) EST AM EST Resulting Agency Comment Spec In Lab Yonathan Smith MD HEMATOLOGY ORDERABLES Performing Organization Address City/State/[place] [address] (ABNORMAL) Basic Metabolic Panel (non-fasting) (08/07/2017 7:30 AM EST) P athologist Signature Glucose Lvl 80 65 - 199 [facility] mg/dL [facility] - [...] or in patients with acute kidney failure. [email or web address]/DHnkdep [email or web address]/DHMCnkf Specimen Anatomical Collection Method Collection Time Receive d Time (Source) Location / / Volume Laterality Blood specimen 08/07/2017 7:30 AM 018 7:45 (specimen) EST AM EST Resulting Agency Comment Spec In Lab Yonathan Smith MD CHEMISTRY ORDERABLES Performing Organization Address City/[facility]/ZIP Code Phon e Number [address] POCT Glucose (08/07/2017 7:27 AM EST) athologist Signature POC Glucose 81 65 - 199 [facility] mg/dL [facility] [...] [facility]/ZIP Code Phon e Number [address] APTT (08/07/2017 7:04 AM EST) athologist Signature PTT 34 25 - 35 sec [facility] LABORATORY Comment: The recommended therapeutic range for fu ll dose, unfractionated heparin at [facility] [place] is [...] Smith MD HEMATOLOGY ORDERABLES Performing Organization Address City/[facility]/ZIP Code Phon e Number [address] (ABNORMAL) Prothrombin Time (08/07/2017 [...] Address City/State/ZIP Code Phon e Number [address] POCT Glucose (08/07/2017 4:03 AM EST) athologist Signature POC Glucose 93 65 - 199 [facility] mg/dL [facility], [...] Address City/State/ZIP Code Phon e Number [address] POCT Glucose (08/07/2017 12:04 AM EST) athologist Signature POC Glucose 107 65 - 199 [facility] mg/dL [facility], [...] Address City/State/ZIP Code Phon e Number [address] POCT Glucose (08/06/2017 7:56 PM EST) P athologist Signature POC Glucose 178 65 - 199 [facility] mg/dL [facility] - [...] Address City/State/ZIP Code Phon e Number [address] [id number] (08/06/2017 2:32 PM EST) Component Value Ref Test Analysis Performed At Patholo gist Range Method Time Signature VB Text Department: Vascular Surgery Lab VASCUBASE Report Patient: [id number] (GREGORY HOANG) CPT: [id number] ICD10: I99.8 Referring Physician: YONATHAN SMITH ?? [...] Chiquis Mcgrath RN) 0749 (Given - Provider: Doyr Yuan ams, RN)1200 (Not Given - Provider: [...]
Routine documented in this encounter Care Teams Change Consultant Relationship Specialty Start Date End Date Lovely Vicente MD PCP - General 04/16/[address] [place] [address] documented as of this encounter
--- OUTSIDE RECORDS SUMMARY | 2022-04-15 08:21 | XMS_ITS | Encounter Summary ---
:1945 Author Organization [facility] [place] [address] Care Team Providers Name Role Phone Lovely Vicente MD Primary Care Provider Reason for Visit Reason Comments Foot Ulcer WOUND CHECK Auth/Cert Specialty Diagnoses / Procedures Referred By Contact Refer red To Contact Diagnoses Critical lower limb ischemia CELLULITIS RT FOOT Procedures EMERGENCY Referral ID Status Reason Start Date Expiration Date Visits Requ ested Visits Authorized [id number] 1 1 Encounter Details Date Type Department Care Team Description 08/06/2017 [facility] ischemia [facility] [address] [place] VASCULAR SURGERY [id number] [place] [address] [phone] Social History Tobacco Use Types Packs/Day Years [...] Smith MD - 08/06/2017 1:00 PM EST [facility] staff: 1. RIGHT leg CLI Interval Hx: [...] Dolan MD [facility] [address] [place], [place] [address] (Wo ) 05/28/2022 Laboratory Appointment Lab 05/28/2022 Office Visit Cardiology Zulma Dolan MD [facility] [place] [address] Liz Poole PA [facility] [place] [address] 06/10/2022 Office Visit Dermatology Laura Scherer MD [facility] ER [address] [place], [place] [address] (Wo rk) documented as of this encounter Visit Diagnoses Diagnosis Critical lower limb ischemia Unspecified circulatory system disorder documented in this encounter Care Teams Tanning Solution Maker Relationship Specialty Start Date End Date Lovely Vicente MD PCP - General 04/16/[address] [place], [place] [id number] documented as of this encounter
--- OUTSIDE RECORDS SUMMARY | 2022-04-15 08:21 | XMS_ITS | Encounter Summary ---
:1945 [place] [address] Care Team Providers Name Role Phone Lovely Vicente MD Primary Care Provider Encounter Details Date Type Department Care Team Description 08/04/2017 Notes Only Pain Management at Barbra Bruno, [facility] [place] [address] [place] [address] [phone] (Wo rk) Social History Tobacco Use Types [...] bid) at this time. Barbra Soares, MSN, SUPERVISOR CIGARETTE MAKING DEPARTMENT-BC, [facility] documented in this encounter Plan of Treatment Upcoming Encounters Date Type Specialty Care Team Description 05/28/2022 Appointment Cardiology Zulma Dolan MD [facility] [address] [place], [place] [address] (Wo rk) 05/28/2022 Laboratory Appointment Lab 05/28/2022 Office Visit Cardiology Zulma Dolan MD [facility] [place] [address] Liz Poole PA [facility] [place] [address] 06/10/2022 Office Visit Dermatology Laura Scherer MD [facility] [address] [place], [place] [address] (Wo rk) documented as of this encounter Visit Diagnoses Not on filedocumented in this encounter Care Teams Base Wad Operator Adjuster Relationship Specialty Start Date End Date Lovely Vicente MD PCP - General 04/16/[address] [place] [address] documented as of this encounter
--- OUTSIDE RECORDS SUMMARY | 2022-04-15 08:21 | XMS_ITS | Encounter Summary ---
:1945 Author Organization [facility] [place] [address] Care Team Providers Name Role Phone Lovely Vicente MD Primary Care Provider Encounter Details Date Type Department Care Team Description 08/04/2017 Orders Only Cardiac Surgery Makayla Wilson APRN [facility] [place] [address] CARDIAC SURGERY [phone] [place], [place] [address] (Wo rk) Social History [...] MD [facility] er [address] [place], [place] [address] (Wo rk) 05/28/2022 Laboratory Appointment Lab 05/28/2022 Office Visit Cardiology Zulma Dolan MD [facility] [place] [address] Liz Poole PA [facility] [place] [address] 06/10/2022 Office Visit Dermatology Laura Scherer MD [facility] ER [address] [place], [place] [address] (Wo rk) documented as of this encounter Visit Diagnoses Not on filedocumented in this encounter Care Teams Sample Maker Original Relationship Specialty Start Date End Date Lovely Vicente MD PCP - General 04/16/[address] [place] [address] documented as of this encounter
--- OUTSIDE RECORDS SUMMARY | 2022-04-15 08:21 | XMS_ITS | Encounter Summary ---
:1945 [place] [address] Care Team Providers Name Role Phone Lovely Vicente MD Primary Care Provider Encounter Details Date Type Department Care Team Description 08/04/2017 Notes Only Cardiac Surgery Makayla Wilson APRN [facility] [place] [address] CARDIAC SURGERY [phone] [place], [place] [address] (Wo rk) Social History Tobacco [...] Dolan MD [facility] [place], [place] [address] (Wo rk) 05/28/2022 Laboratory Appointment Lab 05/28/2022 Office Visit Cardiology Zulma Dolan MD [facility] [place] [address] Liz Poole PA [facility] [place] [address] 06/10/2022 Office Visit Dermatology Laura Scherer MD [facility] DR [address] [place], [place] [address] (Wo rk) documented as of this encounter Visit Diagnoses Not on filedocumented in this encounter Care Teams Batching Operator Relationship Specialty Start Date End Date Lovely Vicente MD PCP - General 04/16/[address] [place] [address] documented as of this encounter
--- OUTSIDE RECORDS SUMMARY | 2022-04-15 08:21 | XMS_ITS | Encounter Summary ---
:1945 [place] [address] Care Team Providers Name Role Phone Lovely Vicente MD Primary Care Provider Encounter Details Date Type Department Care Team Description 08/05/2017 Notes Only Vascular Surgery at [facility] [place], STACIE [facility] [place] [address] VASCULAR SURGERY [phone] [place], [place] [address] (Wo rk) Social History [...] Zulma Dolan MD [facility] [place], [place] [address] (Wo rk) 05/28/2022 Laboratory Appointment Lab 05/28/2022 Office Visit Cardiology Zulma Dolan MD [facility] [place] [address] Liz Poole PA [facility] [place] [address] 06/10/2022 Office Visit Dermatology Laura Scherer MD [facility] DR [address] [place], [place] [address] (Wo rk) documented as of this encounter Visit Diagnoses Not on filedocumented in this encounter Care Teams Welder Repair Relationship Specialty Start Date End Date Lovely Vicente MD PCP - General 04/16/15 [facility] [address] [place] [address] documented as of this encounter
--- OUTSIDE RECORDS SUMMARY | 2022-04-15 08:21 | XMS_ITS | Encounter Summary ---
:1945 Author Organization [facility] [address] Care Team Providers Name Role Phone Lovely Vicente MD Primary Care Provider Reason for Visit Auth/Cert Specialty Diagnoses / Procedures Referred By Contact Refer red To Contact Diagnoses Critical lower limb ischemia CELLULITIS RT FOOT Procedures EMERGENCY Referral ID Status Reason Start Date Expiration Date Visits Requ ested Visits Authorized [id number] 1 1 Encounter Details Date Type Department Care Team Description 08/04/2017 Hospital Encounter XRay at [facility] Danette Maxwell Incisional pain [address] [place] [address] Dr Gomes, FORESTRY TECHNICAL OFFICER [facility] [phone] CARDIOLOGY [place], [place] [address] Social History Tobacco Use Types [...] MD [facility] [place], [place] [address] (Wo rk) 05/28/2022 Laboratory Appointment Lab 05/28/2022 Office Visit Cardiology Zulma Dolan MD [facility] [place] [address] Liz Poole PA [facility] [place] [address] 06/10/2022 Office Visit Dermatology Laura Scherer MD [facility] DR TE[address]DERMAT [place], [place] [address] (Wo rk) documented as of [...] original. EXAMINATION: XR CHEST PA AND LATERAL (Kobo) CLINICAL HISTORY: Checking sternal stabi lity/assess wires [...] Daniele gutiérrez 08/04/2017 4:13 PM Danette Maxwell FORESTRY TECHNICAL OFFICER IMG DX ORDERABLES documented in this encounter Visit Diagnoses Diagnosis Incisional pain Disturbance of skin sensation documented in this encounter Care Teams Residential Roofer Helper Relationship Specialty Start Date End Date Lovely Vicente MD PCP - General 04/16/[address] [place] [address] documented as of this encounter
--- OUTSIDE RECORDS SUMMARY | 2022-04-15 08:21 | XMS_ITS | Encounter Summary ---
:1945 [place] [address] Care Team Providers Name Role Phone Lovely Vicente MD Primary Care Provider Reason for Visit Auth/Cert Specialty Diagnoses / Procedures Referred By Contact Refer red To Contact Diagnoses Critical lower limb ischemia CELLULITIS RT FOOT Procedures EMERGENCY Referral ID Status Reason Start Date Expiration Date Visits Requ ested Visits Authorized [id number] 1 1 Encounter Details Date Type Department Care Team Description 08/09/2017 Anesthesia Event Main Operating Room Daniele Lizama MD [facility] [place] [address] [facility] Rob Jones MD [facility] [place] [address] [place] [address] Anesthesia Record Procedure Summary Procedure Name [...] Knowles, Dory arm), right; VAMSI Rios, RN ufyn-nwx-ebjixu catheter system; 20 gauge; 08/16/17; 1047 PIV 07/29/17; 1413; median 07/29/17 1413 by 08/16/17 1047 by cubital vein (antecubital Magdalene Hickey Williams, Dory fossa), left; VAMSI Wyatt, RN jxdc-mfe-tvxsfw catheter system; 20 gauge; 08/16/17; 1047 PIV 08/06/17; 1742; cephalic 08/06/17 1742 by 0920 by vein (lateral side of Taylor Laureano Danah y, Caitlyn C, arm), right; VAMSI BONNER gwjo-vlk-kxsqso catheter system; 22 gauge, 1 in length; Eliseo LAUREANO RN VAS; distraction, intradermal injection, tolerated well, appears comfortable; 0; 08/16/17; 0920 Wound 08/07/17; 1335; knee; 08/07/17 1335 by 08/16/17 1047 by laceration; wound occured Barbara Albert iams, Dory BIOCHEMICAL ENGINEER; 08/16/17; 1047 VAMSI Alonzo, RN PIV 08/07/17; 1734; cephalic 08/07/17 1734 by 1047 by vein (lateral side of Kendrick, Carlos W, Willia ms, Dory arm), left; MARCIE Wyatt RN kuvx-sij-oziiov catheter system; 22 gauge; distraction, intradermal injection, [...] MD - 08/09/2017 9:01 AM EST [facility] Department of Anesthesiology Post-procedure Note Patient: Don Fatima Procedure Summary Date Anesthesia Start Anesthesia Stop Room / Location 08/09/17 0802 0901 [facility] OR 14 / [facility] MAIN OR Procedure Diagnosis Surgeon Responsible Provider AMPUTATION, 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 Nerve [...] 33.75) performed by Yuan Retana MD at [facility] MAIN OR ??? PRO CABG, ARTERY-VEIN, TWO N/A 07/07/2017 @CABG, TWO VENOUS GRAFTS & ARTERIAL GRAFT (WRVU 7.93) performed by Yuan Retana MD at [facility] MAIN OR ??? PRO COLONOSCOPY, REMV LESN, SNARE 01/16/2014 COLONOSCOPY, POLYPECTOMY, REMOVAL LESION BY SNARE performed by Nohemi Jaimes MD at [facility] ENDOSCOPY ??? PRO ENDOSCOPY W/VIDEO-ASST VEIN HARVEST, CABG Right 07/07/2017 ENDOSCOPIC HARVEST VEIN(S) FOR CABG (WRVU 0.31) performed by Yuan Retana MD at [facility] MAIN OR ??? PRO THYROIDECTOMY 03/28/2013 THYROIDECTOMY, TOTAL OR COMPLETE performed by Manny Mcknight MD at [facility] MAIN OR Social History Substance [...] adequate IV access. Brody Santillan MD PGY-2, Cost Estimating Clerk Pager #[phone] Anesthesiology Staff (Dewhirst): Pre-op summary note as [...] Dolan MD [facility] [address] [place], [place] [address] (Wo rk) 05/28/2022 Laboratory Appointment Lab 05/28/2022 Office Visit Cardiology Zulma Dolan MD [facility] [place] [address] Liz Poole PA [facility] [place] [address] 06/10/2022 Office Visit Dermatology Laura Scherer MD [facility] DR [address] [place], [place] [address] (Wo rk) documented as of [...] Length: 10 cm Gauge: 21 Needle Type: H-ktquq-noysb Medication injection made in crementally with aspirations. [...] Procedure) documented in this encounter Care Teams Data Processor Relationship Specialty Start Date End Date Lovely Vicente MD PCP - General 04/16/15 [facility] [address] [place] [address] documented as of this encounter
--- OUTSIDE RECORDS SUMMARY | 2022-04-15 08:21 | XMS_ITS | Encounter Summary ---
:1945 Author Organization [facility] [place] [address] Care Team Providers Name Role Phone Lovely Vicente MD Primary Care Provider Encounter Details Date Type Department Care Team Description 08/04/2017 Orders Only Cardiac Surgery Makayla Wilson APRN [facility] [place] [address] CARDIAC SURGERY [phone] [place], [place] [address] (Wo rk) Social History [...] [facility] [address] [place], [place] [address] (Wo rk) 05/28/2022 Laboratory Appointment Lab 05/28/2022 Office Visit Cardiology Zulma Dolan MD [facility] [place] [address] [facility] [place] [address] 06/10/2022 Office Visit Dermatology Laura Scherer MD [facility] ER [address] [place], [place] [address] (Wo rk) documented as of this encounter Visit Diagnoses Not on filedocumented in this encounter Care Teams Spring Salvage Worker Relationship Specialty Start Date End Date Lovely Vicente MD PCP - General 04/16/[address] [place] [address] documented as of this encounter
--- OUTSIDE RECORDS SUMMARY | 2022-04-15 08:21 | XMS_ITS | Encounter Summary ---
:1945 Author Organization [facility] [place] [address] Care Team Providers Name Role Phone Lovely Vicente MD Primary Care Provider Reason for Visit Auth/Cert Specialty Diagnoses / Procedures Referred By Contact Refer red To Contact Diagnoses Critical lower limb ischemia CELLULITIS RT FOOT Procedures EMERGENCY Referral ID Status Reason Start Date Expiration Date Visits Requ ested Visits Authorized [id number] 1 1 Encounter Details Date Type Department Care Team Description 08/04/2017 Office Visit Cardiology at [facility] Danette Maxwell Incisional pain; [facility] A, CLINICAL SERVICES DIRECTOR Ischemic cardiomyopathy; [facility] ASCVD (arteriosclerotic card iovascular disease); [place], [place] Systolic heart failure, unspecified hear t failure chronicity [phone] CARDIOLOGY [phone] [place], [place] [address] Social History Tobacco Use Types [...] in this encounter Progress Notes Danette Maxwell, CLINICAL SERVICES DIRECTOR - 08/04/2017 3:00 PM EST ID and [...] 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 [...] Zulma Dolan MD [facility] [address] [place], [place] [address] (Wo rk) 05/28/2022 Laboratory Appointment Lab 05/28/2022 Office Visit Cardiology Zulma Dolan MD [facility] [place] [address] Liz Poole PA [facility] [place] [address] 06/10/2022 Office Visit Dermatology Laura Scherer MD [facility] DR [address] [place], [place] [address] (Wo rk) documented as [...] sensation documented in this encounter Care Teams Doubling Machine Operator Relationship Specialty Start Date End Date Lovely Vicente MD PCP - General 04/16/[address] [place] [address] documented as of this encounter
--- OUTSIDE RECORDS SUMMARY | 2022-04-15 08:21 | XMS_ITS | Encounter Summary ---
:1945 Author Organization [facility] [place] [address] Care Team Providers Name Role Phone Lovely Vicente MD Primary Care Provider Encounter Details Date Type Department Care Team Description 08/06/2017 Orders Only Vascular Surgery at [facility] [place] APRN Ischemia of foot [facility] [place] [address] VASCULAR SURGERY [phone] [place], [place] [address] (Wo rk) Social History Tobacco [...] MD [facility] er [address] [place], [place] [address] (Wo rk) 05/28/2022 Laboratory Appointment Lab 05/28/2022 Office Visit Cardiology Zulma Dolan MD [facility] [place] [address] Liz Poole PA [facility] [place] [address] 06/10/2022 Office Visit Dermatology Laura Scherer MD [facility] ER DR [address] [place], [place] [address] (Wo rk) documented as of [...] 444 ms MUSE SYSTEM (Bezet) Calculated P [place] 44 degrees MUSE SYSTEM Calculated R [place] -31 degrees MUSE SYSTEM Calculated T [place] 106 degrees MUSE SYSTEM INTERPRETATION Normal sinus [...] (L) 20 - 40 KATALINA RYAN mg/dL [facility] Comment: Prealbumin levels are [...] Organization Address City/State/[place] [address] (ABNORMAL) Basic Metabolic Panel (non-fasting) (08/06/2017 12:32 PM EST) athologist Signature Glucose Lvl 92 65 - [address] [facility] mg/dL [facility] [...] mg/dL [facility] Estimated GFR 53 (L) >=60 [facility] Comment: The reported eGFR should be multiplied b y 1.2 for patients. The MDRD is not an appropriate measure o f renal function for patients with body mass extremes or in patients with acute kidney failure. http://I-Tech/DHnkdep http://I-Tech/DHMCnkf Specimen Anatomical Collection Method Collection Time Receive d Time (Source) Location / / Volume Laterality Blood specimen 08/06/2017 12:32 8 1:15 (specimen) PM EST PM EST Resulting Agency Comment Spec In Lab Arik Clement MD CHEMISTRY ORDERABLES Performing Organization Address City/State/[place] [address] (ABNORMAL) Hemogram (08/06/2017 12:32 PM EST) Analysis Performed At Patho logist Time Signature WBC 11.8 (H) 4.0 - 9.[address] [facility] x10(3)/[facility] LABORATORY RBC 3.49 (L) 4.58 - [facility] 5.54 [facility] x10(6)/[facility] LABORATORY Hemoglobin 9.9 (L) 13.7 - [facility] 16.5 gm/dL [facility] Hematocrit 32.0 (L) 40.5 - [facility] 48.5 % [facility] MCV 91.7 82.9 - [facility] 93.1 [facility] LABORATORY MCH 28.4 27.5 - [facility] 32.1 pg [facility] MCHC 30.9 (L) 32.0 - [facility] 35.7 gm/dL [facility] Platelets 326 145 - [address] [facility] x10(3)/[facility] LABORATORY RDWSD 53.4 (H) 36.0 - [facility] 45.0 [facility] LABORATORY RDWCV 16.0 (H) 11.4 - [facility] 13.8 % [facility] MPV 9.1 7.6 - 12.9 [facility] LABORATORY nRBC % Auto 0.0 % [facility] nRBC Abs Auto 0.000 0.000 - [facility] 0.000 [facility] x10(3)/[facility] LABORATORY Specimen Anatomical Collection Method Collection Time Receive d Time (Source) Location / / Volume Laterality Blood specimen 08/06/2017 12:32 8 1:15 (specimen) PM EST PM EST Resulting Agency Comment Spec In Lab Arik Clement MD HEMATOLOGY ORDERABLES Performing Organization Address City/State/[place] [address] documented in this encounter Visit Diagnoses Diagnosis Ischemia of foot Unspecified circulatory system disorder documented in this encounter Care Teams Commercial Escrow Assistant Relationship Specialty Start Date End Date Lovely Vicente MD PCP - General 04/16/[address] [place] [address] documented as of this encounter
--- OUTSIDE RECORDS SUMMARY | 2022-04-15 08:21 | XMS_ITS | Encounter Summary ---
:1945 Author Organization [facility] Address [facility] [place] [address] Care Team Providers Name Role Phone Lovely Vicente MD Primary Care Provider Reason for Visit Auth/Cert Specialty Diagnoses / Procedures Referred By Contact Refer red To Contact Diagnoses Critical lower limb ischemia CELLULITIS RT FOOT Procedures EMERGENCY Referral ID Status Reason Start Date Expiration Date Visits Requ ested Visits Authorized [id number] 1 1 Encounter Details Date Type Department Care Team Description 08/04/2017 Laboratory Lab 3L [place] Cardiomyopathy, unspecified type; Appointment [facility] Systolic congestive heart failure, unspecified congestive heart failure chronicity; Hospital Coronary artery rupture; [facility] Ischemic cardiomyopathy; Drive Atherosclerosis of [place] co ronary artery, angina presence unspecified, unspecified whether [place] or transplanted heart; [place], [place] Essential hyper tension, malignant; [id number] 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, unspecified continuous churn buttermaker insulin use status [phone] Social History Tobacco Use Types Packs/Day Years [...] [facility] [address] [place] [address] (Wo rk) 05/28/2022 Laboratory Appointment Lab 05/28/2022 Office Visit Cardiology Zulma Dolan MD [facility] [place] [address] Liz Poole PA [facility] [place] [address] 06/10/2022 Office Visit Dermatology Laura Scherer MD [facility] ER [address] [place], [place] [address] (Wo rk) documented as of this encounter Procedures Procedure Name Priority Date/Time Associated Diagnosis Comme nts HEMOGRAM Routine 08/04/2017 12:55 Essential Results for this PM EST hypertension, procedure are in malignant the results section. PROTHROMBIN TIME Routine 08/04/2017 12:55 Coronary artery Resu lts for this PM EST rupture procedure are in Ischemic the results cardiomyopathy section. Atherosclerosis of [place] coronary artery, angina presence unspecified, unspecified whether [place] or transplanted heart URIC ACID Routine 08/04/2017 [...] with the results diabetic section. nephropathy, unspecified penitentiary insulin use status Essential hypertension, malignant COMPREHENSIVE Routine 08/04/2017 12:55 Essential Results fo r this METABOLIC PANEL PM EST hypertension, procedure a re in (NON-FASTING) malignant the results section. documented in this encounter Results Uric acid (08/04/2017 12:55 PM EST) P athologist Signature Uric Acid 7.1 3.5 - 8.5 [facility] mg/dL [facility] LABORATORY Specimen Anatomical Collection Method Collection Time Receive d Time (Source) Location / / Volume Laterality Blood specimen 08/04/2017 12:55 8 1:01 (specimen) PM EST PM EST Resulting Agency Comment Spec In Lab Lovely Vicente MD CHEMISTRY ORDERABLES Performing Organization Address City/[facility]/ZIP [place] [address] (ABNORMAL) Hemogram (08/04/2017 12:55 PM EST) Analysis Performed At Patho logist Time Signature WBC 15.8 (H) 4.0 - 9.5 [facility] x10(3)/[facility] LABORATORY RBC 3.48 (L) 4.58 - [facility] RYAN 5.54 [facility] x10(6)/[facility] LABORATORY Hemoglobin 9.9 (L) 13.7 - [facility] 16.5 gm/dL [facility] LABORATORY Hematocrit 31.4 (L) 40.5 - [facility] 48.5 % [facility] LABORATORY MCV 90.2 82.9 - [facility] 93.1 [facility] LABORATORY MCH 28.4 27.5 - [facility] 32.1 pg [facility] LABORATORY MCHC 31.5 (L) 32.0 - [facility] 35.7 gm/dL [facility] LABORATORY Platelets 310 145 - 357 [facility] x10(3)/[facility] LABORATORY RDWSD 51.8 (H) 36.0 - [facility] 45.0 [facility] LABORATORY RDWCV 15.8 (H) 11.4 - [facility] RYAN 13.8 % [facility] LABORATORY MPV 8.9 7.6 - 12.9 [facility] LABORATORY nRBC % Auto 0.0 % [facility] LABORATORY nRBC Abs Auto 0.000 0.000 - [facility] 0.000 [facility] x10(3)/[facility] LABORATORY Specimen Anatomical Collection Method Collection Time Receive d Time (Source) Location / / Volume Laterality Blood specimen 08/04/2017 12:55 8 1:01 (specimen) PM EST PM EST Resulting Agency Comment Spec In Lab Lovely Vicente MD HEMATOLOGY ORDERABLES Performing Organization Address City/State/[place] [address] (ABNORMAL) Comprehensive metabolic panel (non-fasting) (08/04/2017 12:55 PM EST) athologist Signature Glucose Lvl 208 (H) 65 - 199 [facility] mg/dL [facility] [...] LABORATORY Albumin 3.4 3.2 - 5.2 gm/dL [facility] LABORATORY AST 20 0 - 39 unit/L [facility] LABORATORY ALT 21 0 - 55 unit/L [facility] LABOR[facility]ORY Alk Phos 93 40 - 120 unit/L [facility] LABORATORY Total Bilirubin 0.4 0.2 - 1.3 mg/dL [facility] LABORATORY Estimated GFR 43 (L) >=60 [facility] LABORATORY Comment: The reported eGFR should be multiplied b y 1.2 for patients. The MDRD is not an appropriate measure o f renal function for patients with body mass extremes or in patients with acute kidney failure. http://[employer]/DHnkdep http://[employer]/DHMCnkf Specimen Anatomical Collection Method Collection Time Receive d Time (Source) Location / / Volume Laterality Blood specimen 08/04/2017 12:55 8 1:01 (specimen) PM EST PM EST Resulting Agency Comment Spec In Lab Lovely Vicente MD CHEMISTRY ORDERABLES Performing Organization Address City/State/ZIP Code Phon e Number [place] [phone] (ABNORMAL) Hemoglobin A1c (08/04/2017 [...] into estimated average glucose values. ??Diabetes Care 2008:31(8):7480-2818. Specimen Anatomical Collection Method Collection Time Receive d Time (Source) Location / / Volume Laterality Blood specimen 08/04/2017 12:55 8 1:01 (specimen) PM EST PM EST Resulting Agency Comment Spec In Lab Lovely Vicente MD CHEMISTRY ORDERABLES Performing Organization Address [facility] [place] [address] (ABNORMAL) Prothrombin Time (08/04/2017 12:55 PM EST) P athologist Signature PT 35.4 (H) 11.8 - 14.0 [facility] LABORATORY INR 3.5 (H) 0.9 - 1.1 [facility] [...] MD HEMATOLOGY ORDERABLES Performing Organization Address [facility] [place] [address] (ABNORMAL) pro-Brain Natriuretic Peptide (08/04/2017 12:55 PM EST) P athologist Signature ProBNP 3,133 (H) <=125 [facility] pg/mL [facility] LABORATORY Specimen Anatomical Collection Method Collection Time Receive d Time (Source) Location / / Volume Laterality Blood specimen 08/04/2017 12:55 8 1:01 (specimen) PM EST PM EST Resulting Agency Comment Spec In Lab Danette Maxwell APRN CHEMISTRY ORDERABLES Performing Organization Address City/State/[place] [address] documented in this encounter Visit Diagnoses Diagnosis Cardiomyopathy, unspecified type Systolic congestive heart failure, unspe cified congestive heart failure chronicity Coronary artery rupture Acute myocardial infarction, unspecified site, episode of care unspecified Ischemic cardiomyopathy Other specified forms of chronic ischemi c heart disease Atherosclerosis of [place] coronary arter y, angina presence unspecified, unspecified whether [place] or transplanted heart Essential hypertension, malignant Diabetes mellitus due to underlying cond ition with diabetic nephropathy, unspecified continuous churn buttermaker insulin use status documented in this encounter Care Teams Timing Inspector Relationship Specialty Start Date End Date Lovely Vicente MD PCP - General 04/16/[address] [place] [address] documented as of this encounter
--- OUTSIDE RECORDS SUMMARY | 2022-04-15 08:21 | XMS_ITS | Encounter Summary ---
:1945 Author Organization [facility] [place] [address] Care Team Providers Name Role Phone Lovely Vicente MD Primary Care Provider Reason for Visit Auth/Cert Specialty Diagnoses / Procedures Referred By Contact Refer red To Contact Diagnoses Critical lower limb ischemia CELLULITIS RT FOOT Procedures EMERGENCY Referral ID Status Reason Start Date Expiration Date Visits Requ ested Visits Authorized [id number] 1 1 Encounter Details Date Type Department Care Team Description 08/06/2017 Clinical Support Same Day at [facility] Ischemia of foot [facility] [place] [address] Social History Tobacco Use Types Packs/Day [...] noother symptoms except severe right foot pain. [facility] clinic called as pt on [...] [facility] [address] [place], [place] [address] (Wo rk) 05/28/2022 Laboratory Appointment Lab 05/28/2022 Office Visit Cardiology Zulma Dolan MD [facility] [place] [address] Liz Poole PA [facility] [place] [address] 06/10/2022 Office Visit Dermatology Laura Scherer MD [facility] [address] [place], [place] [address] (Wo rk) documented as [...] 444 ms MUSE SYSTEM (Bezet) Calculated P [place] 44 degrees MUSE SYSTEM Calculated R [place] -31 degrees MUSE SYSTEM Calculated T [place] 106 degrees MUSE SYSTEM INTERPRETATION Normal sinus [...] disorder documented in this encounter Care Teams Skein Mercerizing Machine Operator Relationship Specialty Start Date End Date Lovely Vicente MD PCP - General 04/16/[address] [place] [address] documented as of this encounter
--- OUTSIDE RECORDS SUMMARY | 2022-04-15 08:21 | XMS_ITS | Encounter Summary ---
:1945 [place] [address] Care Team Providers Name Role Phone Lovely Vicente MD Primary Care Provider Encounter Details Date Type Department Care Team Description 08/04/2017 Notes Only Cardiac Surgery Makayla Wilson [employer]IT[employer] [facility] [place] [address] CARDIAC SURGERY [phone] [place], [place] [address] (Wo rk) Social History Tobacco [...] Dolan MD [facility] [address] [place], [place] [address] (Wo rk) 05/28/2022 Laboratory Appointment Lab 05/28/2022 Office Visit Cardiology Zulma Dolan MD [facility] [place] [address] Liz Poole PA [facility] [place] [address] 06/10/2022 Office Visit Dermatology Laura Scherer MD [facility] DR [address] [facility] [place] [address] (Wo rk) documented as of this encounter Visit Diagnoses Not on filedocumented in this encounter Care Teams Industrial Maintenance Repairer Helper Relationship Specialty Start Date End Date Lovely Vicente MD PCP - General 04/16/[address] [place] [address] documented as of this encounter
--- OUTSIDE RECORDS SUMMARY | 2022-04-15 08:21 | XMS_ITS | Encounter Summary ---
:1945 Author Organization [facility] [place] [address] Care Team Providers Name Role Phone Lovely Vicente MD Primary Care Provider Reason for Visit Auth/Cert Specialty Diagnoses / Procedures Referred By Contact Refer red To Contact Diagnoses Critical lower limb ischemia CELLULITIS RT FOOT Procedures EMERGENCY Referral ID Status Reason Start Date Expiration Date Visits Requ ested Visits Authorized [id number] 1 1 Encounter Details Date Type Department Care Team Description 08/06/2017 Laboratory Appointment Lab at [facility] Ischemia of foot [facility] [place] [address] Social History Tobacco Use Types Packs/Day [...] [facility] er [address] [place] [id number] (Wo rk) 05/28/2022 Laboratory Appointment Lab 05/28/2022 Office Visit Cardiology Zulma Dolan MD [facility] [place] [id number] Liz Poole PA [facility] [place] [address] 06/10/2022 Office Visit Dermatology Laura Scherer MD [facility] ER [address]DERMAT [facility] [place], [place] [address] (Wo rk) documented as of [...] Signature Prealbumin 19 (L) 20 - 40 [facility] mg/dL [facility] LABORATORY Comment: Prealbumin levels are [...] City/State/[place] [address] (ABNORMAL) Basic Metabolic Panel (non-fasting) (08/06/2017 12:32 PM EST) P athologist Signature Glucose Lvl 92 65 - 199 [facility] mg/dL [facility] LABORATORY Comment: Diabetes: >=200 [...] or in patients with acute kidney failure. http://[employer]/DHnkdep http://[employer]/DHMCnkf Specimen Anatomical Collection Method Collection Time Receive d Time (Source) Location / / Volume Laterality Blood specimen 08/06/2017 12:32 8 1:15 (specimen) PM EST PM EST Resulting Agency Comment Spec In Lab Arik Clement MD CHEMISTRY ORDERABLES Performing Organization Address City/State/[place] [address] (ABNORMAL) Hemogram (08/06/2017 12:32 PM EST) Analysis Performed At Patho logist Time Signature WBC 11.8 (H) 4.0 - 9.5 [facility] x10(3)/[facility] LABORATORY RBC 3.49 (L) 4.58 - [facility] 5.54 [facility] x10(6)/[facility] LABORATORY Hemoglobin 9.9 (L) 13.7 - [facility] 16.5 gm/dL [facility] LABORATORY Hematocrit 32.0 (L) 40.5 - [facility] 48.5 % [facility] LABORATORY MCV 91.7 82.9 - [facility] 93.1 [facility] LABORATORY MCH 28.4 27.5 - [facility] DAVIS 32.1 pg [facility] LABORATORY MCHC 30.9 (L) 32.0 - [facility] DAVIS 35.7 gm/dL [facility] LABORATORY Platelets 326 145 - 357 [facility] x10(3)/[facility] LABORATORY RDWSD 53.4 (H) 36.0 - [facility] DAVIS 45.0 [facility] LABORATORY RDWCV 16.0 (H) 11.4 - [place] RYAN 13.8 % [facility] LABORATORY MPV 9.1 7.6 - 12.9 [facility] LABORATORY nRBC % Auto 0.0 % [facility] LABORATORY nRBC Abs Auto 0.000 0.000 - [place] DAVIS 0.000 [facility] x10(3)/[facility] LABORATORY Specimen Anatomical Collection Method Collection Time Receive d Time (Source) Location / / Volume Laterality Blood specimen 08/06/2017 12:32 8 1:15 (specimen) PM EST PM EST Resulting Agency Comment Spec In Lab Arik Clement MD HEMATOLOGY ORDERABLES Performing Organization Address City/State/ZIP Code Phon e Number [place] [phone] documented in this encounter Visit Diagnoses Diagnosis Ischemia of foot Unspecified circulatory system disorder documented in this encounter Care Teams Gas Combustion Engineer Relationship Specialty Start Date End Date Lovely Vicente MD PCP - General 04/16/[address] [place] [address] documented as of this encounter
--- OUTSIDE RECORDS SUMMARY | 2022-04-15 08:21 | XMS_ITS | Encounter Summary ---
:1945 Author Organization [facility] [place] [address] Care Team Providers Name Role Phone Lovely Vicente MD Primary Care Provider Reason for Visit Auth/Cert Specialty Diagnoses / Procedures Referred By Contact Refer red To Contact Diagnoses Critical lower limb ischemia CELLULITIS RT FOOT Procedures EMERGENCY Referral ID Status Reason Start Date Expiration Date Visits Requ ested Visits Authorized [id number] 1 1 Encounter Details Date Type Department Care Team Description 08/06/2017 Hospital [facility] [address] Social History Tobacco Use Types Packs/Day [...] MD [facility] [place], [place] [address] (Wo rk) 05/28/2022 Laboratory Appointment Lab 05/28/2022 Office Visit Cardiology Zulma Dolan MD [facility] [place] [address] Liz Poole PA [facility] [place] [address] 06/10/2022 Office Visit Dermatology Laura Scherer MD [facility] DR [address] [place], [place] [address] (Wo rk) documented as of this encounter Visit Diagnoses Not on filedocumented in this encounter Care Teams Technical Intern Relationship Specialty Start Date End Date Lovely Vicente MD PCP - General 04/16/[address] [place] [address] documented as of this encounter
--- OUTSIDE RECORDS SUMMARY | 2022-04-15 08:21 | XMS_ITS | Encounter Summary ---
:1945 Author Organization [place] [address] Care Team Providers Name Role Phone Lovely Vicente MD Primary Care Provider Reason for Visit Auth/Cert Specialty Diagnoses / Procedures Referred By Contact Refer red To Contact Diagnoses Critical lower limb ischemia CELLULITIS RT FOOT Procedures EMERGENCY Referral ID Status Reason Start Date Expiration Date Visits Requ ested Visits Authorized [id number] 1 1 Encounter Details Date Type Department Care Team Description 08/04/2017 Laboratory Appointment Lab [facility] [place] [address] Social History Tobacco Use Types Packs/Day [...] [facility] [address] [place] [address] (Wo rk) 05/28/2022 Laboratory Appointment Lab 05/28/2022 Office Visit Cardiology Zulma Dolan MD [facility] [place] [address] Liz Poole PA [facility] [place] [address] 06/10/2022 Office Visit Dermatology Laura Scherer MD [facility] DR [address]MAT [place], [place] [address] (Wo rk) documented as of this encounter Visit Diagnoses Not on filedocumented in this encounter Care Teams Stretcher Drier Operator Relationship Specialty Start Date End Date Lovely Vicente MD PCP - General 04/16/15 [facility] [address] [place], [place] [address] documented as of this encounter
--- OUTSIDE RECORDS SUMMARY | 2022-04-15 08:22 | XMS_ITS | Encounter Summary ---
:1945 Author Organization [facility] [place] [address] Care Team Providers Name Role Phone Lovely Vicente MD Primary Care Provider Reason for Visit Reason Comments Foot Pain Auth/Cert Specialty Diagnoses / Procedures Referred By Contact Refer red To Contact Diagnoses Ischemic foot Procedures NAYE OBSVO Referral ID Status Reason Start Date Expiration Date Visits Requ ested Visits Authorized [id number] 1 1 Encounter Details Date Type Department Care Team Description 07/27/2017 Emergency 1 [facility] Lokesh Swenson MD [facility] [place] [address] Femoral artery pseudo-aneurysm, right; [facility] Tam Bauman MD [facility] [place] [address] [place] [address] Social History Tobacco Use Types Packs/Day [...] Gregory Fatima Patient Age: 72 y.o. Language: Algerian Race: White Ethnicity: Not nor Admit date: [...] contact your inpatient physician through the [facility] Physicist [employer] . Issues after hours and on weekends [...] critical limb ischemia, who presented to [facility] with worsening RLE pain. Pt post-op course after CABG was significant for paroxysmal Afib, and he was started on Coumadin given elevated [id number] score. He presented 2 weeks following that, on 07/20, with RLE pain/pallor andwas found to have critical limb ischemia in setting of subtherapeutic INR, pseudoaneurysm Rt RADIO HOST and occlusion b/l ant tibial arteries. He [...] in the last 7068 hours. Invalid input(s): [id number] Recent Labs 07/08/17 0400 07/07/17 0515 07/06/17 [...] was low at 1.6 here at [facility]) 7. Use [...] previously schedule Your Inpatient Doctor(s) at [facility]: CARLOS ALBERTO ROSALES MD General Instructions None Future Appointments and Orders Future Appointments Provider Department Dept Phone 07/30/2017 8:30 AM OSWALDO, THREE L Lab 3L [facility] [phone] 07/30/2017 9:40 AM Danette Maxwell APRN Cardiology at [place] [phone] 08/04/2017 1:00 PM Daniele Mooney [place] Vascular Lab at [place] [phone] 08/04/2017 2:15 PM Arik Clement MD Vascular Surgery at [place] [phone] 08/11/2017 10:00 AM [facility] ROOM 2 XRay at [place] [phone] Please go to [facility]T ([place] Location). 08/11/2017 11:00 AM Yuan Retana MD Cardiac Surgery at [place] [phone] 09/07/2017 3:00 PM LAB, THREE L Lab 3L [facility] [phone] 09/07/2017 4:00 PM Luz Prescott MD Endocrinology at [place] [phone] Discharge References/Attachments None documented in this encounter [...] was low at 1.6 here at [facility]) 3. Use [...] previously schedule Your Inpatient Doctor(s) at [facility]: CARLOS ALBERTO [...] Gas) No results found for: PHART, PO2ART, QUK6KNK Assessment/Plan: 72 y.o. male s/p CABG in [...] Education Nutrition Recommendations: Recommend continuation of [facility], CHO2 diet [...] Diet Daily Healthy Menu Choices/Cardiac diet ([facility]-Diet) 60/ CHO counting level 2 Frequency: Effective Now Number of Occurrences: Until Specified Admit Weight: 83.92 kg Estimated body mass index is 28.13 kg/(m^2) as calculated from the following: Height as of this encounter: 172.7 cm (5' 8). Weight as of this encounter: 83.9 kg (185 lb). [place] body weight: 68.4 kg (150 lb 12.7 [...] critical limb ischemia, who presented to [facility] with worsening [...] spent >30 minutes (Day of Discharge Code 05152) involved in the final examination of the [...] ID: 72 y.o. Male presents to [facility] with persistent pain b/l lower extremities History of Present Illness: HPI 72 y.o. 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 Pt post-op course after CABG was significant for paroxysmal Afib, and he was started on Coumadin given elevated [id number] score. He presented 2 weeks following that, on 07/20, with RLE pain/pallor andwas found to have critical limb ischemia in setting of subtherapeutic INR, pseudoaneurysm Rt RADIO HOST and occlusion b/l ant tibial arteries. He [...] POLYPECTOMY, REMOVAL LESION BY SNARE performed by Noheim Jaimes MD at [facility] ENDOSCOPY ??? PRO ENDOSCOPY W/VIDEO-ASST VEIN HARVEST, CABG Right 07/07/2017 ENDOSCOPIC HARVEST VEIN(S) FOR CABG (WRVU 0.31) performed by Yuan Retana MD at [facility] MAIN OR ??? PRO THYROIDECTOMY 03/28/2013 THYROIDECTOMY, TOTAL OR COMPLETE performed by Manny Mcknight MD at [facility] MAIN OR Prior To Admission [...] Procedure Component Value Units Date/Time Blood culture [[id number]] Collected: 07/09/1739 Lab Status: Final result Specimen: Blood from Arm, Right Updated: 07/14/17701 Blood Culture No growth at 5 days. Blood culture [[id number]] Collected: 07/09/170 Lab Status: Final result Specimen: [...] ischemia following CABG, who presented to [facility] ED from [...] Diet Daily Healthy Menu Choices/Cardiac diet ([facility]-Diet) 60/60/75 CHO counting level 2Cardiac, low salt, CHO 2 Discharge planning Pending improvement in pain control PT/OT/Speech PT ordered Lines/Access PIV Ocasio catheter No DVT/GI Prophylaxis Lovenox bridge to Coumadin, SCD. Code status Full Code Family PCP Lovely Vicente MD [phone] Attestation Please see my note for details [...] encounter Miscellaneous Notes Plan of Care - [place]-Joyce Damian, PT - 07/27/2017 3:26 PM EST [...] Anticipated Discharge Disposition: home with assist Pager: [phone] JOYCE KING, PT Inpatient Physical Therapy 2017 [...] patient's evaluation including the following functional test(s) [facility]. Current ability measures, co-morbidities and clinical [...] lovenox bridge. Mr. Fatima returns to [facility] ED tonight [...] at [facility] MAIN OR MEDICATIONS: No current [...] up in clinic 1-2 weeks after discharge. [facility] Vascular Surgery Plan of Care [...] Zulma Dolan MD [facility] [place], [place] [address] (Wo rk) 05/28/2022 Laboratory Appointment Lab 05/28/2022 Office Visit Cardiology Zulma Dolan MD [facility] [place] [address] Liz Poole PA [facility] [place] [address] 06/10/2022 Office Visit Dermatology Laura Scherer MD [facility] DR TE[address] GR-DERMAT [place]LOGY [place], [place] [address] (Wo rk) documented as [...] TYPE AND SCREEN STAT 07/27/2017 12:53 ([facility]/CGP/SHANDA) AM EST BASIC METABOLIC PANEL STAT 07/27/2017 12:53 Re sults for this (NON-FASTING) AM EST procedure are in the results section. documented in this encounter Results POCT Glucose (07/27/2017 11:53 AM EST) P athologist Signature POC Glucose 175 65 - 199 [facility] mg/dL [facility] [...] Organization Address City/State/[place] [address] Arterial Duplex Leg, Unil (07/27/2017 7:40 AM EST) Component Value Ref Test Analysis Performed At Patholo gist Range Method Time Signature VB Text Department: Vascular Surgery Lab VASCUBASE Report Patient: [id number] (GREGORY FATIMA) CPT: 79030 ICD10: I97.610;I72.4;Z09 Referring Physician: TAM BAUMAN ?? [...] VASCULAR ORDERABLES Performing Organization Address City/[facility]/ZIP Code Phon e Number VASCUBASE POCT Glucose (07/27/2017 6:51 AM EST) P athologist Signature POC Glucose 96 65 - 199 [facility] mg/dL [facility] [...] S Performing Organization Address City/[facility]/ZIP [facility] Phon e Number [address] ABORH Recheck Status (07/27/2017 [...] BANK ORDERABLES Performing Organization Address City/[facility]/[place] [address] Gold Tube HOLD (07/27/2017 12:53 AM EST) P athologist Signature Gold Hold Sample in [facility]. [facility] LABORATORY Specimen Anatomical Collection Method Collection Time Receive d Time (Source) Location / / Volume Laterality Blood specimen Venous Draw / 07/27/2017 12:53 07/27/19 18 1:01 (specimen) Unknown AM EST AM EST Angela Swenson MD CHEMISTRY ORDERABLES Performing Organization Address City/State/[place] [address] (ABNORMAL) Differential, Automated (07/27/2017 12:53 AM EST) Patholo gist Method Time Signature Neutrophils % 75.0 % [facility] LABORATORY Neutr Abs (ANC) 11.30 (H) 1.70 - [facility] 6.10 [facility] x10(3)/[facility] LABORATORY Lymphocytes % 9.9 % [facility] LABORATORY Lymphocytes Abs 1.5 0.9 - 3.2 [facility] x10(3)/[facility] LABORATORY Monocytes % 8.6 % [facility] LABORATORY Monocyte Abs 1.3 (H) 0.3 - 0.9 [facility] x10(3)/[facility] LABORATORY Eosinophils % 4.8 % [facility] LABORATORY Eosinophils Abs 0.7 (H) 0.0 - 0.4 [facility] x10(3)/[facility] LABORATORY Basophils % 0.8 % [facility] LABORATORY Basophils Abs 0.1 0.0 - 0.1 [facility] x10(3)/[facility] LABORATORY Immature Gran % 0.90 % [...] Abs 0.13 (H) 0.00 - 0.04 x10(3)/[facility] LABORATORY Specimen Anatomical Collection Method Collection Time Receive d Time (Source) Location / / Volume Laterality Blood specimen 07/27/2017 12:53 8 1:00 (specimen) AM EST AM EST Resulting Agency Comment Spec In Lab Angela Swenson MD HEMATOLOGY ORDERABLES Performing Organization Address City/State/[place] [address] (ABNORMAL) Hemogram (07/27/2017 12:53 AM EST) Analysis Performed At Patho logist Time Signature WBC 15.0 (H) 4.0 - 9.5 [facility] x[facility](3[facility] LABORATORY RBC 3.59 (L) 4.58 - [facility] 5.54 [facility] x10(6)/[facility] LABORATORY Hemoglobin 10.3 (L) 13.7 - [facility] 16.5 gm/dL [facility] LABORATORY Hematocrit 32.6 (L) 40.5 - [facility] 48.5 % [facility] LABORATORY MCV 90.8 82.9 - [facility] 93.1 [facility] LABORATORY MCH 28.7 27.5 - [facility] RYAN 32.[address] [facility] LABORATORY MCHC 31.6 (L) 32.0 - [facility] 35.7 gm/dL [facility] LABORATORY Platelets 322 145 - 357 [facility] x10(3)/[facility] RDWSD 48.7 (H) 36.0 - [facility] RYAN 45.0 [facility] LABORATORY RDWCV 14.7 (H) 11.4 - [facility] RYAN 13.8 % [facility] LABORATORY MPV 8.9 7.6 - 12.9 [facility] LABORATORY nRBC % Auto 0.0 % [facility] LABORATORY nRBC Abs Auto 0.000 0.000 - [facility] RYAN 0.000 [facility] x10(3)/[facility] LABORATORY Specimen Anatomical Collection Method Collection Time Receive d Time (Source) Location / / Volume Laterality Blood specimen 07/27/2017 12:53 8 1:00 (specimen) AM EST AM EST Resulting Agency Comment Spec In Lab Angela Swenson MD HEMATOLOGY ORDERABLES Performing Organization Address City/State/[place] [address] Antibody screen (07/27/2017 12:53 AM EST) Patholo gist Method Time Signature Ab Screen Negative [facility] LABORATORY Expires at 07/30/2017 KATALINA ZHAORYAN [id number] on: [facility] LABORATORY Specimen Anatomical Collection Method Collection Time Receive d Time (Source) Location / / Volume Laterality Blood specimen 07/27/2017 12:53 8 (specimen) AM EST 12:58 AM EST Resulting Agency Comment Spec In Lab Angela Swenson MD BLOOD BANK ORDERABLES Performing Organization Address City/[facility]/[place] [address] ABO/Rh Typing (07/27/2017 12:53 AM EST) P athologist Signature ABORh Type O Pos [facility] LABORATORY Specimen Anatomical Collection Method Collection Time Receive d Time (Source) Location / / Volume Laterality Blood specimen 07/27/2017 12:53 8 (specimen) AM EST 12:58 AM EST Resulting Agency Comment Spec In Lab Angela Swenson MD BLOOD BANK ORDERABLES Performing Organization Address City/[facility] [place] [address] (ABNORMAL) Prothrombin Time (07/27/2017 12:53 AM EST) P athologist Signature PT 19.1 (H) 11.8 - 14.0 [facility] LABORATORY [...] Organization Address City/State/[place] [address] (ABNORMAL) Basic Metabolic Panel (non-fasting) (07/27/2017 12:53 AM EST) athologist Signature Glucose Lvl 95 65 - 199 [facility] mg/dL [facility] LAB[facility]ORY Comment: Diabetes: >=200 mg/dL plus symp toms BUN 37 (H) 10 - 20 mg/dL [facility] LABORATORY Creatinine 1.49 0.80 - [...] or in patients with acute kidney failure. 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
Routine documented in this encounter Care Teams Dumper Relationship Specialty Start Date End Date Lovely Vicente MD PCP - General 04/16/15 [facility] [address] [facility] [address] [place] [address] documented as of this encounter
--- OUTSIDE RECORDS SUMMARY | 2022-04-15 08:22 | XMS_ITS | Encounter Summary ---
:1945 Author Organization [place] [address] Care Team Providers Name Role Phone Lovely Vicente MD Primary Care Provider Reason for Visit Auth/Cert Specialty Diagnoses / Procedures Referred By Contact Refer red To Contact Diagnoses Critical lower limb ischemia CELLULITIS RT FOOT Procedures EMERGENCY Referral ID Status Reason Start Date Expiration Date Visits Requ ested Visits Authorized [id number] 1 1 Encounter Details Date Type Department Care Team Description 08/04/2017 [facility] Barbara [place] thrombosis of [facility] [place] [id number] Social History Tobacco Use Types Packs/Day Years [...] MD [facility] [place], [place] [address] (Wo rk) 05/28/2022 Laboratory Appointment Lab 05/28/2022 Office Visit Cardiology Zulma Dolan MD [facility] [place] [address] Liz Poole PA [facility] [place] [address] 06/10/2022 Office Visit Dermatology Laura Scherer MD [facility] DR TEJA GR-DERMAT [place]LOGY [place], [place] [address] (Wo rk) documented as [...] Department: Vascular Surgery Lab VASCUBASE Report Patient: [id number] (DON HOANG) CPT: 93557 ICD10: I82.541 Referring Physician: MEÑO HUTSON ?? [...] extremity documented in this encounter Care Teams Clinical Technician Relationship Specialty Start Date End Date Lovely Vicente MD PCP - General 04/16/[address] [place] [address] documented as of this encounter
--- OUTSIDE RECORDS SUMMARY | 2022-04-15 08:22 | XMS_ITS | Encounter Summary ---
:1945 [place] [address] Care Team Providers Name Role Phone Lovely Vicente MD Primary Care Provider Encounter Details Date Type Department Care Team Description 07/16/2017 Telephone Endocrinology at [facility] C Manuela Holliday, [facility] [place] [address] ENDOCRINOLOGY DEPT [phone] [place], [place] [address] (Wo rk) Social History Tobacco [...] Dolan MD [facility] [address] [place], [place] [address] (Wo rk) 05/28/2022 Laboratory Appointment Lab 05/28/2022 Office Visit Cardiology Zulma Dolan MD [facility] [place] [address] Liz Poole PA [facility] [place] [address] 06/10/2022 Office Visit Dermatology Laura Scherer MD [facility] [address]MAT [place], [place] [address] (Wo rk) documented as of this encounter Visit Diagnoses Not on filedocumented in this encounter Care Teams Forepart Rasper Relationship Specialty Start Date End Date Lovely Vicente MD PCP - General 04/16/[address] [place] [address] documented as of this encounter
--- OUTSIDE RECORDS SUMMARY | 2022-04-15 08:22 | XMS_ITS | Encounter Summary ---
:1945 Author Organization [facility] [place] [address] Care Team Providers Name Role Phone Lovely Vicente MD Primary Care Provider Encounter Details Date Type Department Care Team Description 07/29/2017 Transcribe Orders Laboratory Lovely Vicente MD [address] [address] [place] [address] [phone] (Wo rk) Social History Tobacco Use Types [...] [facility] [address] [place] [address] (Wo rk) 05/28/2022 Laboratory Appointment Lab 05/28/2022 Office Visit Cardiology Zumla Dolan MD [facility] [place] [address] Liz Poole PA [facility] [place] [address] 06/10/2022 Office Visit Dermatology Laura Scherer MD [facility] ER DR TEJA [address] [place], [place] [address] (Wo rk) documented as of this encounter Visit Diagnoses Not on filedocumented in this encounter Care Teams Radar Air Traffic Controller Relationship Specialty Start Date End Date Lovely Vicente MD PCP - General 04/16/[address] [place] [address] documented as of this encounter
--- OUTSIDE RECORDS SUMMARY | 2022-04-15 08:22 | XMS_ITS | Encounter Summary ---
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 Patient [...] SETUP performed by Manny Mcknight MD at [facility] MAIN OR ??? PRO CABG, ARTERIAL, SINGLE N/A 07/07/2017 @CABG, USING ARTERIAL GRAFT;SINGLE ARTERIAL GRAFT (WRVU 33.75) performed by Yuan Retana MD at [facility] MAIN OR ??? PRO CABG, ARTERY-VEIN, TWO N/A 07/07/2017 @CABG, TWO VENOUS GRAFTS & ARTERIAL GRAFT (WRVU 7.93) performed by Yuan Retana MD at [facility] MAIN OR ??? PRO COLONOSCOPY, REMFlash MOCK, SNARE 01/16/2014 COLONOSCOPY, POLYPECTOMY, REMOVAL LESION BY SNARE performed by Nohemi Jaimes MD at [facility] ENDOSCOPY ??? PRO ENDOSCOPY W/VIDEO-ASST VEIN HARVEST, CABG Right 07/07/2017 ENDOSCOPIC HARVEST VEIN(S) FOR CABG (WRVU 0.31) performed by Yuan Retana MD at [facility] MAIN OR ??? PRO THYROIDECTOMY 03/28/2013 THYROIDECTOMY, TOTAL OR COMPLETE performed by Manny Mcknight MD at 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 Hank Zhang Vascular Surgery, PGY2 Pager #[phone] Associated attestation - Arik Clement MD - [...] Zulma Dolan MD [facility] [place], [place] [address] (Wo rk) 05/28/2022 Laboratory Appointment Lab 05/28/2022 Office Visit Cardiology Zulma Dolan MD [facility] [place] [address] Liz Poole PA [facility] [place] [address] 06/10/2022 Office Visit Dermatology Laura Scherer MD [facility] DR TEJA GR-DERMAT [place], [place] [address] (Wo rk) documented as of [...] Value Ref Test Analysis Performed At [facility] Range Method Time Signature VB Text Department: Vascular Surgery Lab VASCUBASE Report Patient: [id number] (GREGORY FATIMA) CPT: 96283 ICD10: I82.541 Referring Physician: TAMIKO JIMÉNEZ ?? [...] POC Glucose 128 65 - 199 [facility] mg/dL [facility] Comment: Supplemental [...] Address City/State/ZIP Code Phon e Number [address] (ABNORMAL) D-Dimer, Quantitative (07/29/2017 2:15 PM EST) [facility] JUNTA.CL Method Time Signature D-Dimer, Quant 1,699 (H) 0 - 500 [facility] FEU ng/ml [facility] Comment: [...] [place] [address] (ABNORMAL) Differential, Automated (07/29/2017 2:15 PM EST) [facility] JUNTA.CL Method Time Signature Neutrophils % 82.5 % [facility] LABORATORY Neutr Abs (ANC) 10.21 (H) 1.70 - [facility] 6.10 [facility] x10(3)/[facility] L LABORATORY Lymphocytes % 7.1 % [facility] Lymphocytes Abs 0.9 0.9 - 3.2 [facility] x10(3)/[facility] LABORATORY Monocytes % 6.5 % [facility] Monocyte Abs 0.8 0.3 - 0.9 [facility] x10(3)/[facility] LABORATORY Eosinophils % 2.7 % [facility] Eosinophils Abs 0.3 0.0 - 0.4 [facility] x10(3)/[facility] LABORATORY Basophils % 0.6 % [facility] Basophils Abs 0.1 0.0 - 0.1 [facility] x10(3)/[facility] LABORATORY Immature Gran % [...] Gran Abs 0.08 (H) 0.00 - 0.04 x10(3)/[facility] LABORATORY Specimen Anatomical Collection Method Collection Time Receive d Time (Source) Location / / Volume Laterality Blood specimen 07/29/2017 2:15 PM 018 2:36 (specimen) EST PM EST Resulting Agency Comment Spec In Lab Tamiko Jiménez MD HEMATOLOGY ORDERABLES Performing Organization Address City/State/[place] [address] (ABNORMAL) Hemogram (07/29/2017 2:15 PM EST) Analysis Performed At Patho logist Time Signature WBC 12.4 (H) 4.0 - 9.5 [facility] x10(3)/[facility] LABORATORY RBC 4.17 (L) 4.58 - [facility] 5.54 [facility] x10(6)/[facility] LABORATORY Hemoglobin 12.1 (L) 13.7 - [facility] 16.5 gm/dL [facility] Hematocrit 38.1 (L) 40.5 - [facility] 48.5 % [facility] MCV 91.4 82.9 - [facility] 93.1 [facility] LABORATORY MCH 29.0 27.5 - [facility] 32.1 pg [facility] MCHC 31.8 (L) 32.0 - [facility] R[facility]AN 35.7 gm/dL [facility] Platelets 204 145 - 357 [facility] x10(3)/[facility] LABORATORY RDWSD 50.5 (H) 36.0 - [facility] 45.0 [facility] LABORATORY RDWCV 15.3 (H) 11.4 - [facility] 13.8 % [facility] MPV 9.4 7.6 - 12.9 [facility] LABORATORY nRBC % Auto 0.0 % [facility] nRBC Abs Auto 0.000 0.000 - [facility] 0.000 [facility] x10(3)/[facility] LABORATORY Specimen Anatomical Collection Method Collection Time Receive d Time (Source) Location / / Volume Laterality Blood specimen 07/29/2017 2:15 PM 018 2:36 (specimen) EST PM EST Resulting Agency Comment Spec In Lab Tamiko Jiménez MD HEMATOLOGY ORDERABLES Performing Organization Address City/State/[place] [address] (ABNORMAL) Prothrombin Time (07/29/2017 2:15 PM EST) P athologist Signature PT 24.4 (H) 11.8 - 14.0 [facility] LABORATORY INR 2.2 (H) 0.9 - 1.1 [facility] LABORATORY [...] City/State/ZIP Code Phon e Number [place] [id number] HOSP[address] LAB[address]ORY Drive Arterial Duplex Leg, Unil (07/29/2017 11:50 AM EST) Component Value Ref Test Analysis Performed At [facility] Range Method Time Signature VB Text Department: Vascular Surgery Lab VASCUBASE Report Patient: [id number] (GREGORY FATIMA) CPT: 50323 ICD10: Z09;I97.610 Referring Physician: TAMIKO JIMÉNEZ ?? [...] Value Ref Test Analysis Performed At [facility] Range Method Time Signature VB Text Department: Vascular Surgery Lab VASCUBASE Report Patient: [id number] (GREGORY FATIMA) CPT: 51377 ICD10: I82.441 Referring Physician: TAMIKO JIMÉNEZ ?? [...] he calf. Notification: Marquis Pathak MD (pager #[phone]) was notif ied of the preliminary findings. [...] STAT documented in this encounter Care Teams Song And Dance Performer Relationship Specialty Start Date End Date Lovely Vicente MD PCP - General 04/16/[address] [place] [address] [address] [place] [address] documented as of this encounter
--- OUTSIDE RECORDS SUMMARY | 2022-04-15 08:22 | XMS_ITS | Encounter Summary ---
:1945 [place] [address] Care Team Providers Name Role Phone Lovely Vicente MD Primary Care Provider Reason for Visit Reason Comments Hospital Transfer cold foot post CABG Auth/Cert Specialty Diagnoses / Procedures Referred By Contact Refer red To Contact Diagnoses Critical lower limb ischemia Procedures NAYE IPI Referral ID Status Reason Start Date Expiration Date Visits Requ ested Visits Authorized [id number] 1 1 Encounter Details Date Type Department Care Team Description 07/20/2017 Hospital Encounter 4 Herminia Ibarra MD [facility] [place] [address] Critical lower limb [facility] Arik Clement MD [facility] [place] [address] [place] [address] Social History Tobacco Use Types Packs/Day Years [...] home. Important Studies and Lab Data: Labs: [facility] Lab Results Component Value Date INR 1.5 [...] For any problems or questions please call [phone] ZELDA Smith, leather goods sales representative Nurse Clinician For issues on weeknights after 5pm and weekends please call [phone] and ask for the Vascular Fellow steam conditioner filling. General Instructions None Future Appointments and Orders Future Appointments Provider Department Dept Phone 08/04/2017 1:00 PM Daniele Mooney [place] [facility] [phone] 08/04/2017 2:15 PM Arik Clement MD [facility] Surgery [facility] [phone] 09/07/2017 3:00 PM MAYRA [facility] Lab [facility] [phone] 09/07/2017 4:00 PM Luz Prescott MD Endocrinology at [facility] [phone] Future Orders Complete By Expires Arterial Duplex Leg, Unil [VAS32 Custom] 07/27/2017 (Approximate) 01/26/2018 Process Instructions: There is no in-house vascular research laboratory manager available on weeknights (5pm-8am), weekends, or holidays. IF THIS IS A REQUEST FOR AN EMERGENT STUDY DURING THOSE HOURS, please have the senior provider responsible for the patient page the Vascular Surgery Fellow/Senior Resident steam conditioner filling to discuss options. Scheduling Instructions: Questions: Indication for study/signs & symptoms: Right femoral PSA s/p cardiac cath Question to be answered: bloodflow to PSA Laterality: Right Is there a RIGHT LOWER EXTREMITY graft?: No Lower limb right segments: Common Femoral Is there a stent?: No At which location will this be performed?: [facility] Referral to Home Health - at DISCHARGE [EAS5133 CPT(R)] As directed Process Instructions: Scheduling Instructions: Comments: DOCUMENTATION FOR VNA SERVICES (INCLUDING THOSE PATIENTS WITH MEDICARE COVERAGE REQUIRING HOME VNA SERVICES AND/OR HOSPICE SERVICES) PATIENT'S LOCATION: Gregory Fatima [address] [place] [address] [place] [phone] (home) Cell: Telephone Information: Monkey Keeper's Name: self In discussion with the attending physician, it is certified that this patient is under their care and that they, or a Nurse Practitioner,Clinical Nurse specialist or Physician Manager Product Support who is working directly with them, had [...] [facility] ([facility] [place] [facility]-is in [place]) PHONE: [phone] FAX: [phone] Start of care: 24- 48 hours FOR [...] patient'sPCP: Lovely Vicente MD [address] [facility] [place] / [place] [address] All VNA agencies which cover the area [...] For any problems or questions please call [phone] ZELDA Smith, leather goods sales representative Nurse Clinician For issues on weeknights after 5pm and weekends please call [phone] and ask for the Vascular Fellow steam conditioner filling. documented in this encounter Medications at Time [...] RN - 07/20/2017 2:53 PM EST The patient/printing sales representative has been provided a list of Home Health Agencies/DME vendors which serve their preferred geographic area. A letter describing our affiliations was reviewed with them and theywere educated about their right to choose where referrals are placed. Patient requests referral to [facility]. PHONE: [phone] FAX: [phone]. Expected date of discharge: 07/20/2017 . Referral routed to the Chemical Processing Supervisor for matching with agency/vendor and to provide any required information. Naty Pulliam RN - 07/20/2017 11:37 AM EST The patient/printing sales representative has been provided a list of Home Health Agencies/DME vendors which serve their preferred geographic area. A letter describing our affiliations was reviewed with them and theywere educated about their right to choose where referrals are placed. Patient requests referral to [facility] ([facility] [place] [facility]- is in [place] [facility] PHONE: [phone] FAX: [phone]. Expected date of discharge: 07/20/2017 . Referral routed to the Chemical Processing Supervisor for matching with agency/vendor and to provide any required information. Katina Pulliam RNrubber molder Janneth Lee MD - 07/20/2017 7:29 AM [...] Mcknight MD at [facility] MAIN OR Functional Status/Social Hx: Social [...] -ISS -pain control Discussed with Vascular Fellow steam conditioner filling. Chris Valadez MD PGY2 Pager [phone] documented in this encounter ED Notes Annita Reaves MD - 07/20/2017 3:15 PM EST Emergency Department Gregory Fatima is a 72 y.o. male who presents to [facility] with arterial thrombosis. History of Present Illness [...] [facility] 07/05/17 Anticipated Length Of Stay (If known): [...] Health/Prescription Coverage: Primary Insurance: MEDICARE Secondary Insurance: [employer] [facility] Prescription Coverage: See above Preferred Pharmacy: [facility] Other: N/A Primary Care Provider: Lovely Vicente MD [phone] Patient/Caregiver Goals of Treatment: Patient plans to return home when medically ready Potential Needs for Transition of Care: Rehab/SNF: N/A Home Health: [facility] ([facility] [place] [facility]-is in [place]) PHONE: [phone] FAX: [phone] DME: N/A Dialysis: N/A Community Resources: N/A Transportation: Patient family will transport Other: N/A Anticipated Barriers to Discharge/Special Considerations: None Plan: Patient plans to return home with home health services when medically ready A member of the Care Management team will continue to monitor progress, follow for continuity of care and assist with transition of care planning. Naty Pulliam, RN Pager: [phone] ED Triage - Rayna Weir RN - 07/20/2017 12:28 AM EST Pt transferred from [place] for blue right foot and painful [...] Dolan MD [facility] [address] [place], [place] [address] (Wo rk) 05/28/2022 Laboratory Appointment Lab 05/28/2022 Office Visit Cardiology Zulma Dolan MD [facility] [place] [address] Liz Poole PA [facility] [place] [address] 06/10/2022 Office Visit Dermatology Laura Scherer MD [facility] DR TEJA GR-DERMAT [place], [place] [address] (Wo rk) documented as of this encounter Procedures Procedure Name Priority Date/Time Associated Comments Diagnosis DISCOVERY GUIDE SCAN 09/02/2017 12:00 Res ults for this [...] TO LAB EST procedure are i n ([facility]) the results section. [...] documented in this encounter Results SCAN DOC: DISCOVERY GUIDE (09/02/2017 12:00 AM EST) Narrative 09/02/2017 12:00 AM EST This result has an attachment that is no t available. Ordered by an unspecified provider. Scanning Provider MEDIA MGR SCAN EXT ORDR/RSLT POCT Glucose (07/20/2017 12:04 PM EST) P athologist Signature POC Glucose 189 65 - 199 [facility] mg/dL [facility] Comment: Supplemental ranges: <140 mg/dL before meals <180 mg/dL all other times of the day Specimen Anatomical Collection Method Collection Time Receive d Time (Source) Location / / Volume Laterality Blood specimen 07/20/2017 12:04 7 (specimen) PM EST 12:04 PM EST Arik Clement MD POINT OF CARE TEST ORDERABLE S Performing Organization Address City/State/[place] [address] (ABNORMAL) Differential, Automated (07/20/2017 10:34 AM EST) Patholo gist Method Time Signature Neutrophils % 84.3 % [facility]OR[facility] Neutr Abs (ANC) 14.27 (H) 1.70 - [facility] 6.[address] [facility] x10(3)/[facility] LABORATORY Lymphocytes % 5.6 % [facility] Lymphocytes Abs 1.0 0.9 - 3.2 [facility] x10(3)/[facility] LABORATORY Monocytes % 6.1 % [facility] Monocyte Abs 1.0 (H) 0.3 - 0.9 [facility] x10(3)/[facility] LABORATORY Eosinophils % 2.4 % [facility] Eosinophils Abs 0.4 0.0 - 0.4 [facility] x10(3)/[facility] LABORATORY Basophils % 0.5 % [facility] Basophils Abs 0.1 0.0 - 0.1 [facility] x10(3)/[facility] LABORATORY Immature Gran % 1.10 % [facility] [...] Abs 0.19 (H) 0.00 - 0.04 x10(3)/[facility] LABORATORY Specimen Anatomical Collection Method Collection Time Receive d Time (Source) Location / / Volume Laterality Blood specimen 07/20/2017 10:34 7 (specimen) AM EST 10:39 AM EST Resulting Agency Comment Spec In Lab Arik Clement MD HEMATOLOGY ORDERABLES Performing Organization Address City/State/[place] [address] (ABNORMAL) Hemogram (07/20/2017 10:34 AM EST) Analysis Performed At Patho logist Time Signature WBC 17.0 (H) 4.0 - 9.5 [facility](3[facility] LABORATORY RBC 3.70 (L) 4.58 - [facility] 5.[address] [facility] x10(6)/[facility] LABORATORY Hemoglobin 10.8 (L) 13.7 - [facility] 16.5 gm/dL [facility] Hematocrit 33.4 (L) 40.5 - [facility] 48.5 % [facility] MCV 90.3 82.9 - [facility].1 [facility] LAB[facility] MCH 29.2 27.5 - [facility] RYAN [address] [facility] LABORATORY MCHC 32.3 32.0 - [facility] RYAN 35.7 gm/dL [facility] Platelets 211 145 - 357 [facility] x10(3)/[facility] LABORATORY RDWSD 49.1 (H) 36.0 - [facility] RYAN 45.0 [facility] LABORATORY RDWCV 14.7 (H) 11.4 - [facility] RYAN 13.8 % [facility] LABORATORY MPV 9.2 7.6 - 12.9 [facility] nRBC % Auto 0.0 % [facility] LABORATORY nRBC Abs Auto 0.000 0.000 - [place] [facility] 0.[address] [facility] x10(3)/[facility] LABORATORY Specimen Anatomical Collection Method Collection Time Receive d Time (Source) Location / / Volume Laterality Blood specimen 07/20/2017 10:34 7 (specimen) AM EST 10:39 AM EST Resulting Agency Comment Spec In Lab Arik Clement MD HEMATOLOGY ORDERABLES Performing Organization Address City/State/[place] [address] (ABNORMAL) APTT (07/20/2017 10:34 [...] Clement MD HEMATOLOGY ORDERABLES Performing Organization Address City/[facility]/[place] [address] POCT Glucose (07/20/2017 7:41 AM EST) athologist Signature POC Glucose 174 65 - 199 [facility] mg/dL [facility] Comment: Supplemental ranges: <140 mg/dL before meals <180 mg/dL all other times of the day Specimen Anatomical Collection Method Collection Time Receive d Time (Source) Location / / Volume Laterality Blood specimen 07/20/2017 7:41 AM 017 7:41 (specimen) EST AM EST Arik Clement MD POINT OF CARE TEST ORDERABLE S Performing Organization Address City/[facility]/ZIP Code Phon e Number [address] JULIAN, legs, multiple levels (07/20/2017 7:33 AM EST) Component Value Ref Test Analysis Performed At Patholo gist Range Method Time Signature VB Text Department: Vascular Surgery Lab VASCUBASE Report Patient: [id number] (GREGORY FATIMA) CPT: 58603 ICD10: I75.021;I99.8 Referring Physician: ARIK CLEMENT ?? [...] Department: Vascular Surgery Lab VASCUBASE Report Patient: [id number] (GREGORY FATIMA) CPT: 87497 ICD10: I97.610;I99.8 Referring Physician: ARIK CLEMENT ?? [...] Signature POC Glucose 199 65 - 199 [facility] mg/dL [facility] Comment: Supplemental ranges: <140 mg/dL before meals <180 mg/dL all other times of the day Specimen Anatomical Collection Method Collection Time Receive d Time (Source) Location / / Volume Laterality Blood specimen 07/20/2017 3:41 AM 017 3:41 (specimen) EST AM EST Arik Clement MD POINT OF CARE TEST ORDERABLE S Performing Organization Address City/[facility]/ZIP [facility] [place] [address] Lactate, whole blood, send to lab (Leb/CGP) (07/20/2017 2:25 AM EST) athologist Signature Lactate WB 2.0 0.5 - 2.2 [facility] mmol/L [facility] LABOR[facility]ORY Specimen Anatomical Collection Method Collection Time Receive d Time (Source) Location / / Volume Laterality Blood specimen Venous Draw / 07/20/2017 2:25 AM 2016 2:37 (specimen) Unknown EST AM EST Resulting Agency Comment Spec In Lab Zulma Samuel MD CHEMISTRY ORDERABLES Performing Organization Address City/[facility] Code Phon e Number [address] (ABNORMAL) APTT (07/20/2017 2:25 [...] Reaves MD HEMATOLOGY ORDERABLES Performing Organization Address City/[facility]/[place] [address] (ABNORMAL) Prothrombin Time (07/20/2017 [...] Organization Address City/State/[place] [address] (ABNORMAL) Basic Metabolic Panel (non-fasting) (07/20/2017 2:25 AM EST) P athologist Signature Glucose Lvl 187 65 - 199 [facility] mg/dL [facility] LABORATORY [...] Comment: Specimen hemolyzed. Called by: [facility], Read back by: Chitra Orantes, Date/Time:07/20/17 [...] or in patients with acute kidney failure. [email or web address] Specimen Anatomical Collection Method Collection Time Receive d Time (Source) Location / / Volume Laterality Blood specimen 07/20/2017 2:25 AM 017 2:33 (specimen) EST AM EST Resulting Agency Comment Spec In Lab Annita Reaves MD CHEMISTRY ORDERABLES Performing Organization Address City/State/ZIP Code Phon e Number [place] [id number] documented in this encounter [...] injection 10 Units 0445 (Hold - Provider: nIes Cantu RN - Reason: Medication not available) [...]
Routine documented in this encounter Care Teams Role Player Relationship Specialty Start Date End Date Lovely Vicente MD PCP - General 04/16/[address] [place] [address] documented as of this encounter
--- OUTSIDE RECORDS SUMMARY | 2022-04-15 08:22 | XMS_ITS | Encounter Summary ---
:1945 Author Organization [facility] [place] [address] Care Team Providers Name Role Phone Lovely Vicente MD Primary Care Provider Reason for Visit Reason Onset Date Comments Other 07/22/2017 lovenox bridge Encounter Details Date Type Department Care Team Description 07/22/2017 Telephone Cardiology at [facility] Court Cadena RN Other (lovenox bridge) [place] [address] Social History Tobacco Use Types Packs/Day [...] 4:49 PM EST VAMSI Del Castillo, at [facility], called earlier today with a question re: lovenox bridge for this patient who was recently discharged from [facility] r/t a blood clot. Discharge note faxed to [facility] (fax# [phone], Ph#: [phone]) which contains instructions r/t lovenox bridge as follows: Anticoagulation: on lovenox bridge to therapeutic coumadin for AFib. Goal INR 2-3. At discharge INR=1.5. The lovenox injections can stop when INR >2, coumadin will continue indefinitely. documented in this encounter Plan of Treatment Upcoming Encounters Date Type Specialty Care Team Description 05/28/2022 Appointment Cardiology Zulma Dolan MD [facility] [place], [place] [address] (Wo rk) 05/28/2022 Laboratory Appointment Lab 05/28/2022 Office Visit Cardiology Zulma Dolan MD [facility] [place] [address] Liz Poole PA [facility] [place] [address] 06/10/2022 Office Visit Dermatology Laura Scherer MD [facility] [address] [place], [place] [address] (Wo rk) documented as of this encounter Visit Diagnoses Not on filedocumented in this encounter Care Teams Chaperone Relationship Specialty Start Date End Date Lovely Vicente MD PCP - General 04/16/15 [facility] [address] [place] [address] documented as of this encounter
--- OUTSIDE RECORDS SUMMARY | 2022-04-15 08:22 | XMS_ITS | Encounter Summary ---
:1945 [place] [address] Care Team Providers Name Role Phone Lovely Vicente MD Primary Care Provider Reason for Visit Reason Onset Date Comments Questions 07/16/2017 fluid retention Encounter Details Date Type Department Care Team Description 07/16/2017 Telephone Cardiology at [facility] Martha Comer, Questions ([facility] RN retention ) [place] [address] Social History Tobacco Use Types Packs/Day [...] the direct number to the HF team ([phone]). She is aware of his appt with PROFESSOR OF ANTHROPOLOGY Hans on 07/21/17 and the need for labs prior to that visit. verbalized good understanding of the current POC. documented in this encounter Plan of Treatment Upcoming Encounters Date Type Specialty Care Team Description 05/28/2022 Appointment Cardiology Zulma Dolan MD [facility] [address] [place], [place] [address] (Wo rk) 05/28/2022 Laboratory Appointment Lab 05/28/2022 Office Visit Cardiology Zulma Dolan MD [facility] [place] [address] Liz Poole PA [facility] [address] 06/10/2022 Office Visit Dermatology Laura Scherer MD [facility] [address] [place], [place] [address] (Wo rk) documented as of this encounter Visit Diagnoses Not on filedocumented in this encounter Care Teams Lean Manufacturing Leader Relationship Specialty Start Date End Date Lovely Vicente MD PCP - General 04/16/[address] [place] [address] documented as of this encounter
--- OUTSIDE RECORDS SUMMARY | 2022-04-15 08:22 | XMS_ITS | Encounter Summary ---
:1945 [place] [address] Care Team Providers Name Role Phone Lovely Vicente MD Primary Care Provider Encounter Details Date Type Department Care Team Description 07/29/2017 Telephone Pain Aurelia Crawford MD [facility] [place] [address] PAIN CLINIC [phone] [place], [place] [address] (Wo rk) Social History [...] MD [facility] [address] [place], [place] [address] (Wo rk) 05/28/2022 Laboratory Appointment Lab 05/28/2022 Office Visit Cardiology Zulma Dolan MD [facility] [place] [address] Liz Poole PA [facility] [place] [address] 06/10/2022 Office Visit Dermatology Laura Scherer MD [facility] [address] [place], [place] [address] (Wo rk) documented as of this encounter Visit Diagnoses Not on filedocumented in this encounter Care Teams Hospice Liaison Relationship Specialty Start Date End Date Lovely Vicente MD PCP - General 04/16/[address] [place] [address] [address] [place] [address] documented as of this encounter
--- OUTSIDE RECORDS SUMMARY | 2022-04-15 08:22 | XMS_ITS | Encounter Summary ---
:1945 [place] [address] Care Team Providers Name Role Phone Lovely Vicente MD Primary Care Provider Encounter Details Date Type Department Care Team Description 08/03/2017 Hospital Encounter Radiology Library at [place], Tommy Mijares [facility] [place] [address] VASCULAR SURGERY [phone] [place], [place] [address] (Wo rk) Social History [...] Dolan MD [facility] Dr [place], [place] [address] (Wo rk) 05/28/2022 Laboratory Appointment Lab 05/28/2022 Office Visit Cardiology Zulma Dolan MD [facility] [place] [address] [facility] [place] [address] 06/10/2022 Office Visit Dermatology Laura Scherer MD [facility] [address] [place], [place] [address] (Wo rk) documented as [...] Time Received Time / Laterality Volume Narrative [facility] - 08/03/2017 6:01 PM EST This exam is for storage only and is aut o-finalizing. Arik Clement MD G FILM LIBRARY ORDERABLES Performing Organization Address City/State/ZIP Code Phon e Number [place], [place] documented in this encounter Visit Diagnoses Diagnosis Pain Generalized pain documented in this encounter Care Teams Fuse Cup Expander Relationship Specialty Start Date End Date Lovely Vicente MD PCP - General 04/16/[address] [place] [address] documented as of this encounter
--- OUTSIDE RECORDS SUMMARY | 2022-04-15 08:22 | XMS_ITS | Encounter Summary ---
:1945 [place] [address] Care Team Providers Name Role Phone Lovely Vicente MD Primary Care Provider Encounter Details Date Type Department Care Team Description 07/29/2017 Hospital Encounter Vascular Lab at Critic monica Huber lower limb [facility] [place] [phone] Social History Tobacco Use Types Packs/Day Years [...] Cardiology Zulma Dolan MD [facility] [place], [place] [address] (Wo rk) 05/28/2022 Laboratory Appointment Lab 05/28/2022 Office Visit Cardiology Zulma Dolan MD [facility] [place] [address] Liz Poole PA [facility] [place] [address] 06/10/2022 Office Visit Dermatology Laura Scherer MD [facility] [address] [place], [place] [address] (Wo rk) documented as of this encounter Visit Diagnoses Diagnosis Critical lower limb ischemia Unspecified circulatory system disorder documented in this encounter Care Teams Manufacturing Engineering Intern Relationship Specialty Start Date End Date Lovely Vicente MD PCP - General 04/16/[address] [place] [address] documented as of this encounter
--- OUTSIDE RECORDS SUMMARY | 2022-04-15 08:22 | XMS_ITS | Encounter Summary ---
:1945 Author Organization [facility] [place] [address] Care Team Providers Name Role Phone Lovely Vicente MD Primary Care Provider Reason for Visit Reason Comments Follow-up Encounter Details Date Type Department Care Team Description 07/29/2017 Office Visit Cardiac Surgery at [facility] Yuan Retana MD S/P CABG x 3 [facility] [place] [address] CARDIOTHORACIC SURGERY [phone] [place], [place] [address] (Wo rk) Social History Tobacco [...] evaluation by vascular surgery. Yuan Retana MD [phone] documented in this encounter Plan of Treatment Upcoming Encounters Date Type Specialty Care Team Description 05/28/2022 Appointment Cardiology Zulma Dolan MD [facility] er [address] [place] [address] (Wo rk) 05/28/2022 Laboratory Appointment Lab 05/28/2022 Office Visit Cardiology Zulma Dolan MD [facility] [place] [address] Liz Poole PA [facility] [place] [address] 06/10/2022 Office Visit Dermatology Laura Scherer MD [facility] ER DR [address] [place], [place] [address] (Wo rk) documented as of this encounter Visit Diagnoses Diagnosis S/P CABG x 3 Postsurgical aortocoronary bypass status documented in this encounter Care Teams Excavating Machine Operator Relationship Specialty Start Date End Date Lovely Vicente MD PCP - General 04/16/[address] [place] [address] documented as of this encounter
--- OUTSIDE RECORDS SUMMARY | 2022-04-15 08:22 | XMS_ITS | Encounter Summary ---
:1945 Author Organization [facility] [place] [address] Care Team Providers Name Role Phone Lovely Vicente MD Primary Care Provider Encounter Details Date Type Department Care Team Description 08/03/2017 Telephone Pain Management at [facility] [place]eno, [place] [address] Social History Tobacco Use Types Packs/Day [...] Management Center Preauthorization Request Patient: Don Fatima [id number] Fax received from [facility] requesting we obtain prior authorization for Lidocaine Patches prescribed by Barbra Soares APRN. RX insurance plan: [facility] insurance telephone: [phone] Patient ?? Diagnosis: right foot pain secondary to PVD and ischemia ?? Previous medications attempted: Tylenol, Tramadol, Dilaudid Authorization/Reference number: [id number], PBP Code 801 _x_ denied, provider and patient informed _x_ appeal initiated by provider, patient informed Angeles Rodrigez, RN documented in this encounter Plan of Treatment Upcoming Encounters Date Type Specialty Care Team Description 05/28/2022 Appointment Cardiology Zulma Dolan MD [facility] [place], [place] [address] (Wo rk) 05/28/2022 Laboratory Appointment Lab 05/28/2022 Office Visit Cardiology Zulma Dolan MD [facility] [place] [address] Liz Poole PA [facility] [place] [address] 06/10/2022 Office Visit Dermatology Laura Scherer MD [facility] DR [address] [place], [place] [address] (Wo rk) documented as of this encounter Visit Diagnoses Not on filedocumented in this encounter Care Teams Furniture Arranger Relationship Specialty Start Date End Date Lovely Vicente MD PCP - General 04/16/[address] [place] [address] documented as of this encounter
--- OUTSIDE RECORDS SUMMARY | 2022-04-15 08:22 | XMS_ITS | Encounter Summary ---
:1945 Author Organization [facility] [place] [address] Care Team Providers Name Role Phone Lovely Vicente MD Primary Care Provider Encounter Details Date Type Department Care Team Description 07/29/2017 Transcribe Orders Laboratory Lvoely Vicente MD [address] [address] [place] [address] [phone] (Wo rk) Social History Tobacco Use Types [...] MD [facility] er [address] [place] [address] (Wo rk) 05/28/2022 Laboratory Appointment Lab 05/28/2022 Office Visit Cardiology Zulma Dolan MD [facility] [place] [address] Liz Poole PA [facility] [place] [address] 06/10/2022 Office Visit Dermatology Laura Scherer MD [facility] ER [address] [place], [place] [address] (Wo rk) documented as of this encounter Visit Diagnoses Not on filedocumented in this encounter Care Teams Fountain Attendant Relationship Specialty Start Date End Date Lovely Vicente MD PCP - General 04/16/[address] [place] [address] documented as of this encounter
--- OUTSIDE RECORDS SUMMARY | 2022-04-15 08:22 | XMS_ITS | Encounter Summary ---
:1945 [place] [address] Care Team Providers Name Role Phone Lovely Vicente MD Primary Care Provider Encounter Details Date Type Department Care Team Description 08/03/2017 Hospital Encounter Radiology Library at [place], Tommy Mijares [facility] [place] [address] VASCULAR SURGERY [phone] [place], [place] [address] (Wo rk) Social History Tobacco [...] Zulma Dolan MD [facility] [address] [place], [place] [address] (Wo rk) 05/28/2022 Laboratory Appointment Lab 05/28/2022 Office Visit Cardiology Zulma Dolan MD [facility] [place] [address] Liz Poole PA [facility] [place] [address] 06/10/2022 Office Visit Dermatology Laura Scherer MD [facility] [address] [place]LOG[place], [place] [address] (Wo rk) documented as of [...] Code Phon e Number [place], [place] documented in this encounter Visit Diagnoses Diagnosis Pain Generalized pain documented in this encounter Care Teams Heel Caser Relationship Specialty Start Date End Date Lovely Vicente MD PCP - General 04/16/[address] [place] [address] documented as of this encounter
--- OUTSIDE RECORDS SUMMARY | 2022-04-15 08:22 | XMS_ITS | Encounter Summary ---
:1945 Author Organization [facility] [place] [address] Care Team Providers Name Role Phone Lovely Vicente MD Primary Care Provider Reason for Visit Reason Comments Pain Management Ankle Pain Toe Pain Encounter Details Date Type Department Care Team Description 07/30/2017 Office Visit Pain Management at Barbra Soares, Per ipheral neuropathy [place] SUPERVISOR PAINTING SHIPYARD due to ischemia [facility] [address] [place], [place], [place] [phone] Social History Tobacco Use Types Packs/Day Years [...] Soares APRN - 07/30/2017 1:45 PM EST [facility] [place] [address] Phone: PAIN MANAGEMENT NEW PATIENT / CONSULTATION NOTE DATE OF VISIT 07/30/2017 Patient Don Fatima 1945 REFERRING PROVIDER Lovely Vicente MD [address] [place] [address] PRIMARY CARE PROVIDER Lovely Vicente MD CHIEF [...] much relief PAST THERAPIES: Nothing MEDICATIONS The [place] Prescription Monitoring Program was checked and no [...] 33.75) performed by Yuan Retana MD at [facility] OR ??? PRO CABG, ARTERY-VEIN, TWO N/A 07/07/2017 @CABG, TWO VENOUS GRAFTS & ARTERIAL GRAFT (WRVU 7.93) performed by Yuan Retana MD at [facility] OR ??? PRO COLONOSCOPY, REMV LESN, SNARE 01/16/2014 COLONOSCOPY, POLYPECTOMY, REMOVAL LESION BY SNARE performed by Nohemi Jaimes MD at [facility] ENDOSCOPY ??? PRO ENDOSCOPY W/VIDEO-ASST VEIN HARVEST, CABG Right 07/07/2017 ENDOSCOPIC HARVEST VEIN(S) FOR CABG (WRVU 0.31) performed by Yuan Retana MD at [facility] OR [...] referral, Lovely Vicente MD [address] [place] [address]. Barbra Soares, MSN, IMAGING ACCOUNT MANAGER-BC, SUPERVISOR PAINTING SHIPYARD Nurse Practitioner Pain Management Center documented in this encounter Plan of Treatment Upcoming Encounters Date Type Specialty Care Team Description 05/28/2022 Appointment Cardiology Zulma Dolan MD [facility] [place], [place] [address] (Wo rk) 05/28/2022 Laboratory Appointment Lab 05/28/2022 Office Visit Cardiology Zulma Dolan MD [facility] [place] [address] Liz Poole PA [facility] [place] [address] 06/10/2022 Office Visit Dermatology Laura Scherer MD [facility] [address] [place], [place] [address] (Wo rk) documented as of this encounter Visit Diagnoses Diagnosis 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
--- OUTSIDE RECORDS SUMMARY | 2022-04-15 08:22 | XMS_ITS | Encounter Summary ---
:1945 Author Organization [facility] [place] [address] Care Team Providers Name Role Phone Lovely Vicente MD Primary Care Provider Encounter Details Date Type Department Care Team Description 08/02/2017 Telephone Pain Management at [facility] [place], [place] [address] Social History Tobacco Use Types Packs/Day [...] Management Center Preauthorization Request Patient: Don Fatima [id number] Fax received from [facility] requesting we obtain prior authorization for Lidocaine patches prescribed by Barbra Soares APRN. RX insurance plan: [employer] insurance telephone: [phone] Patient Diagnosis: right foot pain secondary to PVD and ischemia Previous medications attempted: Tylenol, Tramadol, Dilaudid The following action was taken after discussion with the toll service observer: _x_ pharmacy informed Authorized dosage or amount: 5% on patch on for 12 hours, then remove for 12 hours. Angeles Rodrigez, RN documented in this encounter Plan of Treatment Upcoming Encounters Date Type Specialty Care Team Description 05/28/2022 Appointment Cardiology Zulma Dolan MD [facility] [place], [place] [address] (Wo rk) 05/28/2022 Laboratory Appointment Lab 05/28/2022 Office Visit Cardiology Zulma Dolan MD [place] [address] Liz Poole PA [facility] [place] [address] 06/10/2022 Office Visit Dermatology Laura Scherer MD [facility] [address] [place], [place] [address] (Wo rk) documented as of this encounter Visit Diagnoses Not on filedocumented in this encounter Care Teams Ball Shagger Relationship Specialty Start Date End Date Lovely Vicente MD PCP - General 04/16/[address] [place] [address] documented as of this encounter
--- OUTSIDE RECORDS SUMMARY | 2022-04-15 08:22 | XMS_ITS | Encounter Summary ---
:1945 Author Organization [facility] [place] [address] Care Team Providers Name Role Phone Lovely Vicente MD Primary Care Provider Reason for Visit Reason Comments Deep Vein Thrombosis Auth/Cert Specialty Diagnoses / Procedures Referred By Contact Refer red To Contact Diagnoses Critical lower limb ischemia CELLULITIS RT FOOT Procedures EMERGENCY Referral ID Status Reason Start Date Expiration Date Visits Requ ested Visits Authorized [id number] 1 1 Encounter Details Date Type Department Care Team Description 08/04/2017 Office Visit Vascular Surgery at [facility] itical lower limb [facility] ischemia [facility] [address] [place], [place] VASCULAR SURGERY [address] [place] [address] [phone] Social History Tobacco Use Types Packs/Day Years [...] was discharged on Coumadin. ??He presented to [facility] on 07/20 with mottled toes on the [...] MD [facility] [place] [address] (Wo rk) 05/28/2022 Laboratory Appointment Lab 05/28/2022 Office Visit Cardiology Zulma Dolan MD [facility] [place] [address] Liz Poole PA [facility] [place] [address] 06/10/2022 Office Visit Dermatology Laura Scherer MD [facility] ER DR [address] [place], [place] [address] (Wo rk) documented as of this encounter Visit Diagnoses Diagnosis Critical lower limb ischemia Unspecified circulatory system disorder documented in this encounter Care Teams Tax Adjuster Relationship Specialty Start Date End Date Lovely Vicente MD PCP - General 04/16/15 [facility] [address] [place], [place] [address] documented as of this encounter
--- OUTSIDE RECORDS SUMMARY | 2022-04-15 08:22 | XMS_ITS | Encounter Summary ---
:1945 Author Organization [facility] [place] [address] Care Team Providers Name Role Phone Lovely Vicente MD Primary Care Provider Encounter Details Date Type Department Care Team Description 07/24/2017 Telephone Vascular Surgery Melba Bob [facility] [place] [address] [facility] [phone] VASCULAR SURGERY [place], [place] [address] (Wo rk) Social History Tobacco [...] was discharged on Coumadin. ??He presented to [facility] on 07/20 with mottled toes on the [...] [facility] [address] [place] [address] (Wo rk) 05/28/2022 Laboratory Appointment Lab 05/28/2022 Office Visit Cardiology Zulma Dolan MD [facility] [place] [address] Liz Poole PA [facility] [place] [address] 06/10/2022 Office Visit Dermatology Laura Scherer MD [facility] [address] [place], [place] [address] (Wo rk) documented as of this encounter Visit Diagnoses Not on filedocumented in this encounter Care Teams Aircraft Structural Repair Mechanic Relationship Specialty Start Date End Date Lovely Vicente MD PCP - General 04/16/[address] [place] [address] documented as of this encounter
--- OUTSIDE RECORDS SUMMARY | 2022-04-15 08:22 | XMS_ITS | Encounter Summary ---
:1945 Author Organization [facility] Address [facility] [place] [address] Care Team Providers Name Role Phone Lovely Vicente MD Primary Care Provider Encounter Details Date Type Department Care Team Description 07/29/2017 Transcribe Orders Laboratory Lovely Vicente, Coronary artery rupture; [facility] Medical Ischemic cardiomyopathy; [facility] [address] Atherosclerosis of galena co ronary artery, angina presence unspecified, unspecified whether galena or transplanted heart; [place], [place] [address] Essential hypertension, malignant; [id number] [place], [place] 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, unspecified residential insulin use status [phone] [id number] Social History Tobacco Use Types Packs/Day Years [...] MD [facility] [place] [address] (Wo rk) 05/28/2022 Laboratory Appointment Lab 05/28/2022 Office Visit Cardiology Zulma Dolan MD [facility] [place] [address] Liz Poole PA [facility] [place] [address] 06/10/2022 Office Visit Dermatology Laura Scherer MD [facility] ER [address] [place], [place] [address] (Wo rk) Scheduled Orders Name Type Priority Associated Diagnoses Order S chedule Lab Use Only, Fax Lab Routine Coronary arter y rupture Expected: 07/29/2017 Request Ischemic cardiom yopathy (Approximate), Atherosclerosis of galena Ex jose: 07/29/2018 coronary artery, angina presence unspecified, unspecified whether galena or transplanted heart Essential hypertension, malignant documented as of this encounter Results Uric acid (08/04/2017 12:55 PM EST) P athologist Signature Uric Acid 7.1 3.5 - 8.5 [facility]dL [facility] Specimen Anatomical Collection Method Collection Time Receive d Time (Source) Location / / Volume Laterality Blood specimen 08/04/2017 12:55 8 1:01 (specimen) PM EST PM EST Resulting Agency Comment Spec In Lab Lovely Vicente MD CHEMISTRY ORDERABLES Performing Organization Address City/State/[place] [address] (ABNORMAL) Hemogram (08/04/2017 12:55 PM EST) Analysis Performed At Patho logist Time Signature WBC 15.8 (H) 4.0 - 9.5 [facility] x[facility](3[facility] LAB[facility]ATORY RBC 3.48 (L) 4.58 - [facility] 5.54 [facility] x10(6)/[facility] LABORATORY Hemoglobin 9.9 (L) 13.7 - [facility] 16.5 gm/dL [facility] Hematocrit 31.4 (L) 40.5 - [place]INA DAVIS 48.5 % [facility] MCV 90.2 82.9 - [facility] 93.1 [facility] LABORATORY MCH 28.4 27.5 - [place] RYAN 32.1 pg [facility] MCHC 31.5 (L) 32.0 - [place] ZHAORYAN 35.7 gm/dL [facility] Platelets 310 145 - 357 [facility] x10(3)/[facility] LABORATORY RDWSD 51.8 (H) 36.0 - [place] RYAN 45.0 [facility] LABORATORY RDWCV 15.8 (H) 11.4 - [facility] 13.8 % [facility] MPV 8.9 7.6 - 12.9 [facility] LABORATORY nRBC % Auto 0.0 % [facility] nRBC Abs Auto 0.000 0.000 - [facility] 0.000 [facility] x10(3)/[facility] LABORATORY Specimen Anatomical Collection Method Collection Time Receive d Time (Source) Location / / Volume Laterality Blood specimen 08/04/2017 12:55 8 1:01 (specimen) PM EST PM EST Resulting Agency Comment Spec In Lab Lovely Vicente MD HEMATOLOGY ORDERABLES Performing Organization Address City/State/ZIP Code Phon e Number [place] [phone] (ABNORMAL) Comprehensive metabolic panel (non-fasting) (08/04/2017 12:55 PM EST) P athologist Signature Glucose Lvl 208 (H) 65 - 199 [facility] mg/dL [facility] Comment: [...] or in patients with acute kidney failure. [email or web address] Specimen Anatomical Collection Method Collection Time Receive d Time (Source) Location / / Volume Laterality Blood specimen 08/04/2017 12:55 8 1:01 (specimen) PM EST PM EST Resulting Agency Comment Spec In Lab Lovely Vicente MD CHEMISTRY ORDERABLES Performing Organization Address City/State/[place] [address] (ABNORMAL) Hemoglobin A1c (08/04/2017 [...] Avg Gluc See note mg/dL [facility] DAVIS [facility] Comment: Estimated Average Glucose [...] into estimated average glucose values. ??Diabetes Care 2008:31(8):2114-9394. Specimen Anatomical Collection Method Collection Time Receive d Time (Source) Location / / Volume Laterality Blood specimen 08/04/2017 12:55 8 1:01 (specimen) PM EST PM EST Resulting Agency Comment Spec In Lab Lovely Vicente MD CHEMISTRY ORDERABLES Performing Organization Address City/State/[place] [address] (ABNORMAL) Prothrombin Time (08/04/2017 [...] Address City/State/[place] [address] documented in this encounter Visit Diagnoses Diagnosis Coronary artery rupture Acute myocardial infarction, unspecified site, episode of care unspecified Ischemic cardiomyopathy Other specified forms of chronic ischemi c heart disease Atherosclerosis of galena coronary arter y, angina presence unspecified, unspecified whether galena or transplanted heart Essential hypertension, malignant Diabetes mellitus due to underlying cond ition with diabetic nephropathy, unspecified residential insulin use status documented in this encounter Care Teams Brush Hand Relationship Specialty Start Date End Date Lovely Vicente MD PCP - General 04/16/[address] [place] [address] documented as of this encounter
--- OUTSIDE RECORDS SUMMARY | 2022-04-15 08:24 | XMS_ITS | Encounter Summary ---
:1945 Author Organization [facility] [place] [address] Care Team Providers Name Role Phone Lovely Vicente MD Primary Care Provider Encounter Details Date Type Department Care Team Description 07/08/2017 Orders Only [facility] [place] [address] Social History Tobacco Use Types Packs/Day [...] [facility] [place], [place] [address] (Wo rk) 05/28/2022 Laboratory Appointment Lab 05/28/2022 Office Visit Cardiology Zulam Dolan MD [facility] [place] [address] Liz Poole PA [facility] [place] [address] 06/10/2022 Office Visit Dermatology Laura Scherer MD [facility] ER [address] [place] [address] (Wo rk) documented as of this encounter [...] Mccollum ? (Age): 1945(72y) Med Rec#: ? [id number] ?Sex: ?M ? Site Loc: ? Ht / Wt: ??(cm)/ (kg) ? Pt. Loc: ? Study Date: ?? 07/07/2017 ?Pt. Type: Tape: ? Referring: Yuan Retana Reading: Yifan Perez MD ([id number]) Performing: Yifan Perez MD ([id number]) Diagnosis: SUMMARY: 1. Intraoperative AVELINO performed at the [facility] of Dr. Mike for the [...] ? Mid-Inferior ?Hypokinetic ? Mid-Inferoseptal ?Hypokinetic ? [place]-Septal ? Hypokinetic ? [place]-Anterior ? Hypokinetic ? [place]-Lateral ?Hypokinetic ? [place]-Inferior ? Hypokinetic ? [place]-Tip ?Not Seen ? This report has been electronically sign ed by: _ Yifan Perez MD ? 07/08/2017 12 :25:18 Images reviewed and interpretation verif ied [facility] Procedure Note Yifan Perez MD - 07/08/2017Formatt ing of this note might be different from the original. Procedure: Transesophageal Echocardiogra m Patient: NATALYA MCBRIDE(Age): [birth year]72y) Med Rec#: [id number] Sex: M Site Loc: Ht / Wt: (cm)/ (kg) Pt. Loc: Study Date: 07/07/2017 Pt. Type: Tape: Referring: Yuan Retana Reading: Yifan Perez MD ([id number]) Performing: Yifan Perez MD ([id number]) Diagnosis: SUMMARY: 1. [facility] [...] Hypokinetic Mid-Posterolateral Hypokinetic Mid-Inferior Hypokinetic Mid-Inferoseptal Hypokinetic [place]-Septal Hypokinetic [place]-Anterior Hypokinetic [place]-Lateral Hypokinetic [place]-Inferior Hypokinetic [place]-Tip Not Seen This report has been electronically sign ed by: _ Yifan Perez MD 07/08/2017 12:25:18 Images reviewed and interpretation elvie hwang [facility] Unknown ECHO ORDERABLES documented in this encounter Visit Diagnoses Not on filedocumented in this encounter Care Teams Vehicle Calibration Engineer Relationship Specialty Start Date End Date Lovely Vicente MD PCP - General 04/16/[address] [place] [address] documented as of this encounter
--- OUTSIDE RECORDS SUMMARY | 2022-04-15 08:24 | XMS_ITS | Encounter Summary ---
:1945 Author Organization [facility] [place] [address] Care Team Providers Name Role Phone Lovely Vicente MD Primary Care Provider Reason for Referral Consultation (Routine) - Closed Specialty Diagnoses / Referred By Contact Referred To Contact Procedures Cardiac Rehabilitation Diagnoses S/P CABG x 3 Yuan Webber, Cardiac Rehab, [address] [place] CARDIOTHORACIC [address] [place] [address] Referral ID Status Reason Start Date Expiration Date Visits V isits Requested Authorized [id number] Closed Consult, 07/14/2017 01/10/2018 36 36 Test & Treat Reason for Visit Auth/Cert Specialty Diagnoses / Procedures Referred By Contact Refer red To Contact Diagnoses STEMI (ST elevation myocardial infarction) NSTEMI STEMI Procedures CARDIAC CATHETERIZATION NAYE IPI Referral ID Status Reason Start Date Expiration Date Visits Requ ested Visits Authorized [id number] 1 1 Encounter Details Date Type Department Care Team Description 07/05/2017 - Hospital Encounter Cardiac Special Daphne Shahid MD [facility] [place] [address] Non-ST elevation myocardial infarction ( NSTEMI); 07/14/2017 Care Unit Yuan Preciado MD [facility] [place] [address] S/P CABG x 3 [place] [id number] Social History Tobacco Use Types Packs/Day Years [...] Patient Age: 72 y.o. Birthdate: 1945 Language: Azerbaijani Race: White Ethnicity: Not nor Admit Date: [...] , @ 1:20p Patient to follow-up with Assistant Housekeeping Manager/heart failure team in one week. An appointment will be made for you. You may call [phone] Patient to follow-up with Cardiac Surgery, Dr. Yuan Webber, in ~ 4 weeks with CXR, EKG. Inpatient Provider Contact Information: [facility] Section of Cardiac Surgery [facility] [phone] FAX [phone] Discharge Diagnoses (Hospital Problems) Primary Diagnoses: CAD [...] 33.75) performed by Yuan Webber MD at [facility] MAIN OR ??? PRO CABG, ARTERY-VEIN, TWO N/A 07/07/2017 @CABG, TWO VENOUS GRAFTS & ARTERIAL GRAFT (WRVU 7.93) performed by Yuan Webber MD at [facility] MAIN OR ??? PRO COLONOSCOPY, REMV LESN, SNARE 01/16/2014 COLONOSCOPY, POLYPECTOMY, REMOVAL LESION BY SNARE performed by Nohemi Jaimes MD at [facility] ENDOSCOPY ??? PRO ENDOSCOPY W/VIDEO-ASST VEIN HARVEST, CABG Right 07/07/2017 ENDOSCOPIC HARVEST VEIN(S) FOR CABG (WRVU 0.31) performed by Yuan Webber MD at [facility] MAIN OR ??? PRO THYROIDECTOMY 03/28/2013 THYROIDECTOMY, TOTAL OR COMPLETE performed by Manny Mcknight MD at [facility] MAIN OR Prior To Admission Medications Prescriptions Prior to Admission Medication Sig Dispense Refill Last Dose ??? levothyroxine (SYNTHROID) 175 mcg Tablet Take 1 tablet by mouth daily. 90 tablet 3 07/05/2017 [id number] ??? ascorbic acid, vitamin C, (VITAMIN C) [...] hospital and ruled infor non-ST segment elevation [place]. This almost certainly represents the residual of [...] to [facility] on 07/05/2017 via the Cardiology Service. During his hospital course, he was taken emergently to the catholic priest for an ongoing STEMI. An IABP was [...] not take or discontinue any prescription or fhqt-ctr-zjpwwae medications without asking your doctor or pharmacist [...] day to have your insulin doses adjusted. [facility] Endocrine clinic office Discharge Instructions: Call your doctor if: You have a fever of greater than 101 degrees, shaking chills, if you develop redness or drainage from your incision sites, or if you have questions. Please call your surgeon's office if you have any discharge or drainage from your chest incision. Your surgeon, Dr. Yuan Webber and/or the Cardiac Surgery Physician Director Independent Team may be reached at . Weight: [...] Dr. Yuan Webber. You may use a Acequia Track or treadmill but avoid any pulling [...] friends, go to a movie, go to orthodox, etc. Heavy activities: No hunting, skiing, jogging, snow shoveling, snowmobiling, lawn mowing, swimming, golf or tennis until after your return appointment with the surgeon. Do not ride motorcycles, [employer]'s tractors or horses. Avoid the use of [...] should resume a low fat, low cholesterol, Russian Heart Association Diet/Diabetic diet. Driving: No driving [...] , @ 1:20p Patient to follow-up with Assistant Housekeeping Manager/heart failure team in one week. Appointment will be made for you. You may call [phone] Patient to follow-up with Cardiac Surgery, Dr. [...] THREE L Lab 3L [facility] [phone] 09/07/2017 4:00 PM Luz Prescott MD Endocrinology at [facility] [phone] Future Orders Complete By Expires EKG 12 Lead [EKG1 Custom] 08/14/2017 02/13/2018 Process Instructions: Scheduling Instructions: Questions: Which location will this be performed?: [facility] Is a rhythm strip needed?: No If EKG Reason is Pre-op Evaluation, indicate diagnosis for surgery.: XR Chest PA & Lateral (Generic) [69516 [id number] Custom] 08/14/2017 02/13/2018 Process Instructions: Scheduling Instructions: Questions: Where will study be performed?: [facility] Portable exam?: Reason for exam and clinical history: CABG x 3 Other pertinent information: Stat read required?: Date of injury if applicable: Requested Time: Referral to Cardiac Rehab [JQY910 Custom] As directed Process Instructions: If no progress note charted, please enter Clinical details in comments. Scheduling Instructions: Questions: My question or request is: s/p CABG. Cardiac rehab at [facility] Referral to Home Health - at DISCHARGE [QCV3748 CPT(R)] As directed Process Instructions: Scheduling Instructions: Comments: DOCUMENTATION FOR VNA SERVICES (INCLUDING THOSE PATIENTS WITH MEDICARE COVERAGE REQUIRING HOME VNA SERVICES AND/OR HOSPICE SERVICES) PATIENT'S LOCATION: Gregory Hoang [address] [place] [address] [place] [id number] (home) Telephone Information: Research Phlebotomist's Name: self In discussion with the attending physician, it is certified that this patient is under their care and that they, or a Nurse Practitioner, or Physician Director Independent who is working directly with them, had [...] [facility] ([facility] [place] [facility] in [place] PHONE: [phone] FAX: [phone] RN orders: Cardiopulmonary assessment, incisional assessment, assess vital signs, assessment of rehab progress, medication management and effectiveness, home safety evaluation. Please draw INR if indicated and send result to:Dr Vicente [phone] PT ORDERS: Continue rehab for endurance, gait stability and strength with mobility and transfers. Home safety evaluation. Home exercise program if appropriate. Start of Care Date:24-48 hours after discharge SPECIAL INSTRUCTIONS: For any follow up questions, needs, or issues please call the Cardiac Surgery Office at [phone] FOR MEDICARE ONLY: (please delete this section [...] OR AFTER 07/17/2017 Signed: Martha Teague APRN [facility] Section of Cardiac Surgery [facility] [phone] FAX [phone] Date: 07/14/2017 CC: MD Ivania Cr Betsy, PA [address] [place] [phone] documented in this encounter Discharge Instructions Discharge [...] day to have your insulin doses adjusted. [facility] Endocrine clinic office Patient InstructionsStMartha mcdonald APRN [...] not take or discontinue any prescription or rlrw-kfd-wxpmnri medications without asking your doctor or pharmacist [...] juice or regular (not diet) soda 6 Fetchnotess small box of raisins 4 glucose tablets [...] day to have your insulin doses adjusted. [facility] Endocrine clinic office ? Discharge Instructions: ?? Call your doctor if: You have a fever of greater than 101 degrees, shaking chills, if you develop redness or drainage from your incision sites, or if you have questions. Please call your surgeon's office if you have any discharge or drainage from your chest incision. Your surgeon, Dr. Yuan Webber and/or the Cardiac Surgery Physician Director Independent Team may be reached at . ?? [...] Dr. Yuan Webber. You may use a Acequia Track or treadmill but avoid any pulling [...] friends, go to a movie, go to orthodox, etc. ?? Heavy activities: No hunting, skiing, jogging, snow shoveling, snowmobiling, lawn mowing, swimming, golf or tennis until after your return appointment with the surgeon. Do not ride motorcycles, [employer] tractors or horses. Avoid the use of [...] should resume a low fat, low cholesterol, Russian Heart Association Diet/Diabetic diet. ?? Driving: No [...] @ 1:20p ?? Patient to follow-up with Assistant Housekeeping Manager/heart failure team in one week. An appointment has been made for you, you can call [phone] ?? Patient to follow-up with Cardiac Surgery, [...] THREE L Lab 3L [facility] [phone] ?? 09/07/2017 4:00 PM Luz Prescott MD Endocrinology at [facility] [phone] Future Orders Complete By Expires ?? EKG 12 Lead [EKG1 Custom] 08/14/2017 02/13/2018 ?? Process Instructions: ? Scheduling Instructions: ? Questions: ? Which location will this be performed?: [facility] ?? Is a rhythm strip needed?: No ?? If EKG Reason is Pre-op Evaluation, indicate diagnosis for surgery.: ?? XR Chest PA & Lateral (Generic) [[id number] Custom] 08/14/2017 02/13/2018 ?? Process Instructions: ? Scheduling Instructions: ? Questions: ? Where will study be performed?: [facility] ?? Portable exam?: ?? Reason for exam and clinical history: CABG x 3 ?? Other pertinent information: ?? Stat read required?: ?? Date of injury if applicable: ?? Requested Time: ?? Referral to Cardiac Rehab [[id number] Custom] As directed ? Process Instructions: ?? [...] RN - 07/14/2017 2:34 PM EST The patient/international account representative has been provided a list of Home Health Agencies/DME vendors which serve their preferred geographic area. A letter describing our affiliations was reviewed with them and theywere educated about their right to choose where referrals are placed. Patient requests referral to [facility] PHONE: [phone] FAX: [phone] Expected date of discharge: 07/14 Referral routed to the Offset Printer for matching with agency/vendor and to provide [...] day to have your insulin doses adjusted. [facility] Endocrine clinic office Kathie Carrera APRN [facility] Endocrinology Diabetes Management Pager [phone] minutes of this 35 minute visit was spent with the patient in counseling on diabetes and treatment plan, reviewing all glucose and insulin data as well as relevant laboratory results with the patient, and coordination of care on the inpatient unit including nursing and primary team. Zulma Andres, RN - 07/14/2017 10:30 AM EST The patient/international account representative has been provided a list of Home Health Agencies/DME vendors which serve their preferred geographic area. A letter describing our affiliations was reviewed with them and theywere educated about their right to choose where referrals are placed. Patient requests referral to : Yasmani Mungu[facility] ([facility] [place] [facility] in [place] PHONE: [phone] FAX: [phone]. Expected date of discharge: 07/14/17 Referral routed to the Offset Printer for matching with agency/vendor and to provide [...] hours. If BG remains greater than 240, qudwzy48 units (no more than three times) &??call [...] Will continue to follow Katerin Azul APRN [facility] Endocrinology Diabetes Management Pager [phone] minutes of this 25 minute visit [...] infiltration/extravasation Discussed plan of care with PATIENT SITTER and RN. Elevate exrtemity and apply intermittent Warm compresses. Name of MD contacted Dr. Shaw Brown 07/13/2017 @ 0602 Name of RN contacted Ale Rangel RN Name of Pharmacist if consulted NA Name of Plastics MD ( if consulted) NA (Mandatory photo for infiltrations/ extravasations scoring a stage 2 or greater, but recommended forstage 1)( include measuring tape and identifier in the photo) VOICE NETWORK ADMINISTRATOR CARING FOR THIS PATIENT WILL CONTINUE TO [...] measuring tape and identifier in the photo) VOICE NETWORK ADMINISTRATOR CARING FOR THIS PATIENT WILL CONTINUE TO [...] AM EST Cardiac Surgery Progress Note: ID: [id number] 72 year old male POD#6 s/p CABGx3 [...] discharge. ?? I have met with the patient/international account representative to discuss discharge planning needs. I have provided the [facility], Office of Care Management letter from the Roading Engineer pertaining to rehab referrals. I have also provided a letter describing our affiliations within the [facility] and educated them about their right to choose where referrals are placed. ?? I reviewed the different levels of rehab including SNF, swing, acute and LTAC with the patient/international account representative. ?? The patient/international account representative has been provided a list of facilities within their preferred geographic area. ?? I have requested that the patient/international account representative provide at least three choices for referral. ?? The patient/international account representative have requested referrals to: ?? 1. . ?? 2. [facility] ?? 3. More to be entered ?? Expected date of discharge: 07/14 Note routed to Offset Printer who will communicate referrals to facilities and [...] hours. If BG remains greater than 240, bikrlv36 units (no more than three times) & [...] continue to follow Katerin Patel. STACIE Azul [facility] Endocrinology Diabetes Management Pager [phone] minutes of this 35 minute visit was spent with the patient in counseling on diabetes and treatment plan, reviewing all glucose and insulin data as well as relevant laboratory results with the patient, and coordination of care on the inpatient unit including nursing and primary team. Makayla Stevenson APRN - 07/12/2017 9:52 AM EST Cardiac Surgery Progress Note: ID: [id number] 72 year old male POD#5 s/p CABGx3 [...] hours. If BG remains greater than 240, [id number] units (no more than three times) & [...] AM EST Cardiac Surgery Progress Note: ID: [id number] 72 year old male POD#4 s/p CABGx3 [...] hours. If BG remains greater than 240, quemvy00 units (no more than three times) & [...] them as documented. MARCK DIAMOND MD Samy Maldondao MD - 07/10/2017 9:37 AM EST Cardiac Surgery Progress Note: ID: [id number] 72 year old male POD#3 s/p CABGx3 [...] Gas) No results found for: PHART, PO2ART, KFB0YHI Assessment/Plan: 72 year old male POD#3 s/p [...] Encounter Note Patient Name: Gregory Hoang : [id number] MR#: [id number] Admit Date: 07/05/2017 4:20 PM Hospital Day 4 days Narrative: Patient was sitting in chair, hugging heart pillow, opened his eyes, nodding to come into room Assessment: Patient was sleepy. Intervention and Outcome: Introduced nba player services and patient reached his hand out in appreciation. Follow-up: Shop Tailor Apprentice remains available for support. Time in Direct [...] 07/09/2017 10:45 AM EST Report given to icu staff nurse to cover care Maddison Cee PA - 07/09/2017 9:00 AM EST Cardiac Surgery Progress Note: ID: [id number] 72 year old male POD#2 s/p CABGx3 [...] Iqbal [facility] Section of Cardiac Surgery Date: 07/09/2017 Magnolia Santiago [facility] - 07/09/2017 1:[address] [...] evaluation as approp when IABP d/c'ed. Gretchen Carolian, PT Pager [phone] Maddison Cee PA - 07/08/2017 11:27 AM EST Cardiac Surgery Progress Note: ID: [id number] 72 year old male POD#1 s/p CABGx3 [...] Iqbal [facility] Section of Cardiac Surgery Date: 07/08/2017 Nick [...] unit. NICK SEGAL MD 07/08/2017 Jay Munoz [facility] - 07/08/2017 4:[address] [...] in place in R femoral. No hematoma. CLEANER HOUSEKEEPING- Intact Psych- Anxious Skin- Dry, no peripheral [...] unit. DAPHNE SHAHID MD 07/07/2017 Dinorah Ramírez - 07/07/2017 6:02 AM EST Inpatient Cardiology [...] 8.1* MAGNESIUM 0.94 0.84 0.68* Recent Labs 07/07/1751417 0000 07/06/17 1815 07/06/17 1124 INR -- [...] Ramírez MD, PGY-1 Cardiology S1 (pgr. [phone]) Daphne Shahid MD - 07/06/2017 10:18 PM [...] intact. IABP in place in R femoral. CLEANER HOUSEKEEPING- Intact Psych- Anxious Skin- Dry, no peripheral [...] on the unit. DAPHNE SHAHID MD 07/06/2017 L Segal, Nick Patel MD - 07/06/2017 10:48 AM [...] CREATININE 1.04 -- 1.12 1.04 Recent Labs 07/06/17 0810 07/05/17201907/05/17 1655 CALCIUM [...] note for details. DAPHNE SHAHID MD Pager [phone] Jet Mckenna MD - 07/05/2017 6:48 PM EST Preliminary Cardiac Catheterization Procedure Note: Procedure(s) performed: Left heart cath, IABP insertion Access: Right INSTALLATION & MAINTENANCE EXECUTIVE-->8fr IABP A time-out was conducted prior [...] effect. Heparin gtt maintained. Pt transferred to catholic priest. documented in this encounter H&P Notes Daphne Shahid MD - 07/05/2017 6:08 PM EST CARDIOLOGY HISTORY & PHYSICAL EXAM Date of Admission: 07/05/2017 ( Hospital Day 0 days ) Responsible Attending: Daphne Shahid MD PCP: Lovely Vicente MD PCP#: [phone] Patient Active Problem List Diagnosis Code ??? [...] No significant valvular disease. Taken to the catholic priest urgently for ongoing STEMI. [facility] Labs: [...] monitor I/O - s/p lasix in the catholic priest, redose to aim net neg 1L by [...] Medicine, PGY-2 Cardiology S1, Team Pager # [phone] CARDIOLOGY ATTENDING NOTE Patient: Gregory Hoang Date [...] amenable for PCI. DAPHNE SHAHID MD Pager [phone] documented in this encounter Miscellaneous Notes Consult Note - Daphne Shahid MD - 07/14/2017 11:46 AM EST Heart Failure Service Inpatient Consult Note Gregory Hoang Date of : 1945 Age: 72 y.o. Today's date: 07/14/17 PCP: Lovely Vicente MD RELATIONSHIP ASSOCIATE: None Place of Service: [facility] Reason for Consult: [...] 33.75) performed by Yuan Webber MD at [facility] MAIN OR ??? PRO CABG, ARTERY-VEIN, TWO N/A 07/07/2017 @CABG, TWO VENOUS GRAFTS & ARTERIAL GRAFT (WRVU 7.93) performed by Yuan Webber MD at [facility] MAIN OR ??? PRO COLONOSCOPY, REMV LESN, SNARE 01/16/2014 COLONOSCOPY, POLYPECTOMY, REMOVAL LESION BY SNARE performed by Nohemi Jaimes MD at [facility] ENDOSCOPY ??? PRO ENDOSCOPY W/VIDEO-ASST VEIN HARVEST, CABG Right 07/07/2017 ENDOSCOPIC HARVEST VEIN(S) FOR CABG (WRVU 0.31) performed by Yuan Webber MD at [facility] MAIN OR [...] following studies: EKG 07/14/17: NSR 75 bpm, POWDERMAN anterior infarct, LAD CXR 07/11/17: FINDINGS: Sternotomy [...] was discussed with Zehra. Jaden Kelley MD Airplane Pilot Crop Dusting Pager [phone] CARDIOLOGY ATTENDING NOTE Patient: Gregory Hoang Date [...] heart failure clinic. DAPHNE SHAHID MD Pager [phone] Plan of Care - Alden Chavarria, SPEED RUNNER - 07/14/2017 11:35 AM EST Problem: Patient [...] Discharge Disposition: home with assist Alden Chavarria, SPEED RUNNER Pager: [phone] Inpatient Physical Therapy Problem: Acute Rehab Services [...] sit/sit to supine -- Bed Mobility Goal, [place] Level supervision required -- Bed Mobility Goal, [...] - 3 days -- Gait Training Goal, [place] Level supervision required -- Gait Training Goal, [...] days -- Transfer Training Goal, Activity Type ouc-sx-eftes/phskp-yn-pld;wbx-he-qcvzv/vzncy-sf-aln;toilet -- Transfer Train Goal, [place] Level supervision required -- Transfer Training Goal, [...] present for 2 days per family. Sales Service Promoter noted of frustrations, house keeping sent to room. Patient offered showered twice, refused. at bedside, frustrated that shower not complete, informed that patient had refused several times. requesting to see MIXING PLACE SUPERVISOR, paged sent to Martha, will come to bedside (middle of consult). not willing to wait, Martha notified that family had gone home. Encouraged to come for morning rounds a t 8am. Diabetes team at bedside - insulin adjustments made. Call cabello in reach. Continue to monitor. PLAN MOVING FORWARD: Ambulate, dressing changes BID, Please change drsg at 4am per Martha MIXING PLACE SUPERVISOR request. INDIVIDUALIZED FALL PREVENTION INTERVENTIONS: Patient-specific fall [...] on the lower side, 60ml of [place] juice given after a FS of 80. [...] Anticipated Discharge Disposition: home with assist Pager: [phone] CLARISSA SEGAL, PT 07/12/2017 Physical Therapy Rehabilitation [...] to sit/sit to supine Bed Mobility Goal, [place] Level supervision required Bed Mobility Goal, Additional Goal adheres to psternal precautions for transfer Goal: Gait Training Goal Stand Alone Therapy Goal Outcome: Ongoing (Interventions Implemented as Appropriate) 07/12/17 1225 Gait Training Goal Gait Training Goal, Date Established 07/12/17 Gait Training Goal, Time to Achieve 2 - 3 days Gait Training Goal, [place] Level supervision required Gait Training Goal, Assist [...] 3 days Transfer Training Goal, Activity Type soi-or-eyobz/thbwq-gi-xgs;plc-tj-dlerm/obdeu-rk-hwr;toilet Transfer Train Goal, [place] Level supervision required Transfer Training Goal, Additional Goal adheres to sternal precautions during transfer Consult Note - Octavia Vaughn RN - 07/12/2017 10:50 AM EST [facility] CARDIAC REHABILITATION Gregory Hoang was seen today [...] IV site, amio to other piv and BAND REAMER MACHINE OPERATOR at bedside to help assess, [...] Outcome: Ongoing (Interventions Implemented as Appropriate) 07/11/17199907/11/17200907/12/17 [facility] Daily Care Interventions Self-Care Promotion [...] (Cardiac Surgery) dysrhythmia/arrhythmia Plan of Care - Vota, Cathryn L, RN - 07/10/2017 9:06 PM EST Problem: [...] staff, he stood and marched in place. [place] weak, wanting to sit back down. Remained [...] Outcome: Ongoing (Interventions Implemented as Appropriate) 07/05/17 3726 Mutuality/Individual Preferences What Anxieties, Fears or Concerns [...] Control Outcome: Ongoing (Interventions Implemented as Appropriate) 07/09/17199907/10/1748 Safety Interventions Isolation Precautions -- standard precautions [...] Conf Outcome: Ongoing (Interventions Implemented as Appropriate) 07/10/17 2100 Interdisciplinary Rounds/Family Conf Participants patient (spouse) Problem: Skin Integrity Impairment, Risk/Actual (Adult) Goal: Identify Related Risk Factors and Signs and Symptoms Related risk factors and signs and symptoms are identified upon initiation of Human Response Clinical Practice Guideline (CPG) Outcome: Ongoing (Interventions Implemented as Appropriate) 07/10/17 2100 Skin Integrity Impairment, Risk/Actual Skin Integrity Impairment, [...] Health/Prescription Coverage: Primary Insurance: MEDICARE Secondary Insurance: [id number] [place] Prescription Coverage: yes Preferred Pharmacy: [facility] [place] Other: none Primary Care Provider: Lovely Vicente MD [phone] Patient/Caregiver Goals of Treatment:live and get my breath back Potential Needs for Transition of Care: Rehab[facility]SNF: [facility]; [facility] Home Health: NA DME: TBD Dialysis: na Community Resources: available Transportation: yes Other: none Anticipated Barriers to Discharge/Special Considerations: none Plan: Likely SNF Rehab before home A member of the Care Management team will continue to monitor progress, follow for continuity of care and assist with transition of care planning. ERLIN Weiss Pager: [phone] Consult Note - Katerin Azul RN - [...] review of retirement diabetes care. Diabetes History: Gregory Hoang has [...] to d/c gtt and start CF. terminal worker diabetes care: Medications - Outpatient treatment regimen recommendations pending based on the hospital course. Monitoring - continue BG tid ac & hs Diet - low fat/low carb diet Exercise - weight-bearing exercise 30 min/day, as tolerated Thank you for allowing us to provide care for your patient W/E coverage, Dr. Jeane Tatum, pager [phone] Katerin Patel. STAC[facility] Diabetes Management Pager [phone] Plan of Care - Stephanie Godoy RN [...] Webber MD - 07/07/2017 6:27 PM EST [facility] Operative Note Patient Name: Gregory Hoang : [id number] MR#: [id number] Case Date: 07/07/2017 Surgeon: Surgeon(s) and Role: * Yuan Webber MD - Primary * Michael Drake PA - Physician Director Independent * Linda Flores PA - Physician Director Independent Preoperative diagnosis: 3VD Postoperative diagnosis: CAD, severe [...] Operative Note Patient Name: Gregory Hoang : [id number] MR#: [id number] Case Date: 07/07/2017 Surgeon: Surgeon(s) and Role: * Yuan Webber MD - Primary * Michael Drake PA - Physician Director Independent * Linda Flores PA - Physician Director Independent Preoperative diagnosis: 3VD Postoperative diagnosis: CAD, severe [...] 204 Recent Labs 07/07/17 0515 07/06/17 1940 07/06/17 0810 07/05/172019 NA 142 -- 141 -- 139 [...] major CV events such as , stroke, ND, repeat revascularization compared to PCI). In this [...] CVCC - code status: Full Code Katty Davidjose, MS3 [facility] at [facility] Cardiology S1 (Pager [phone]) Plan of Care - Emelia Ibarra RN [...] hospital and ruled infor non-ST segment elevation ND. This almost certainly represents the residual of [...] with other involved physicians Yuan Webber MD [phone] Med Student Progress Note - Katty Hahn [...] edema Neuro: grossly intact Labs Recent Labs 07/06/1721907/05/17201907/05/17 1655 WBC 7.6 [...] major CV events such as , stroke, ND, repeat revascularization compared to PCI). In this [...] or BiPAP - s/p lasix in the catholic priest, was net -1.5L - s/p plavix load, [...] Dispo: CVCC Katty Hahn, M3 [facility] Cardiology S1 (Pager [phone]) Plan of Care - Stephanie Godoy RN [...] in urinal without difficulty. Lasix given in catholic priest, 1.4 L out at this time. Pt [...] Dolan MD [facility] [address] [place], [place] [address] (Wo lissa) 05/28/2022 Laboratory Appointment Lab 05/28/2022 Office Visit Cardiology Zulma Dolan MD [facility] [place] [address] Liz Poole PA [facility] [place] [address] 06/10/2022 Office Visit Dermatology Laura Scherer MD [facility] [address] [place], [place] [address] (Wo rk) Scheduled Orders Name [...] are i n the results section. HEAD CUSTODIAN SCAN 07/15/2017 12:00 Res ults for this [...] Routine 07/08/2017 4:00 Results f or this ([facility]/CG) AM EST procedure are i n the [...] Routine 07/06/2017 7:40 Results f or this ([facility]P) PM EST procedure are i n the [...] section. TYPE AND SCREEN Routine 07/06/2017 12:00 ([facility]/CGP/SHANDA) PM EST APTT STAT 07/06/2017 11:24 Results [...] Routine 07/06/2017 8:10 Results f or this ([facility]) AM EST procedure are i n the [...] Routine 07/05/2017 8:20 Results f or this ([facility]) PM EST procedure are i n the [...] Timed 07/05/2017 4:55 Results f or this ([facility]) PM EST procedure are i n the [...] 2017 EXAMINATION: XR CHEST PA AND LATERAL (DaptIC) CLINICAL HISTORY: CABG x 3 TECHNIQUE: PA [...] APRN IMG DX ORDERABLES SCAN DOC: HEAD CUSTODIAN (07/15/2017 12:00 AM EST) Narrative 07/15/2017 12:00 [...] Glucose 186 65 - 199 [facility] mg/dL [facility] Comment: Supplemental ranges: <140 mg/dL before meals <180 mg/dL all other times of the day Specimen Anatomical Collection Method Collection Time Receive d Time (Source) Location / / Volume Laterality Blood specimen 07/14/2017 11:56 7 (specimen) AM EST 11:56 AM EST Yuan Webber MD POINT OF CARE TEST ORDERABLE S Performing Organization Address City/[facility]/ZIP [place] [address] POCT Glucose (07/14/2017 7:52 AM EST) athologist Signature POC Glucose 126 65 - 199 [facility] mg/dL [facility] [...] Organization Address City/State/[place] [address] (ABNORMAL) Prothrombin Time (07/14/2017 [...] APRN HEMATOLOGY ORDERABLES Performing Organization Address City/[facility]/ZIP [place] [address] Potassium (07/14/2017 4:46 AM EST) athologist Signature Potassium 4.3 3.5 - 5.0 [facility] mmol/L [facility]/[place] [address] POCT Glucose (07/14/2017 4:34 AM EST) athologist Signature POC Glucose 115 65 - 199 [facility] mg/dL [facility] [...] City/State/ZIP Code Phon e Number [place] [id number] POCT Glucose (07/13/2017 11:33 PM EST) athologist Signature POC Glucose 132 65 - 199 [place] mg/dL [facility] [...] Address City/State/ZIP Code Phon e Number [address] POCT Glucose (07/13/2017 9:25 PM EST) athologist Signature POC Glucose 121 65 - 199 [place] mg/dL [facility] [...] Address City/State/ZIP Code Phon e Number [address] POCT Glucose (07/13/2017 4:55 PM EST) athologist Signature POC Glucose 79 65 - 199 [place] mg/dL [facility] [...] Organization Address City/State/Z[place] [address] POCT Glucose (07/13/2017 11:16 AM EST) athologist Signature POC Glucose 163 65 - 199 [facility] mg/dL [facility] [...] Address City/State/ZIP Code Phon e Number [address] POCT Glucose (07/13/2017 8:07 AM EST) athologist Signature POC Glucose 96 65 - [address] [facility] [...] Address City/State/ZIP Code Phon e Number [address] (ABNORMAL) Prothrombin Time (07/13/2017 [...] Organization Address City/State/ZIP [place] [address] (ABNORMAL) Basic Metabolic Panel (non-fasting) (07/13/2017 4:26 AM EST) athologist Signature Glucose Lvl 95 65 - 199 [facility] mg/dL [facility] [...] [facility] LAB[facility]ORY Estimated GFR 60 >=60 [facility] Comment: The reported eGFR should be multiplied b y 1.2 for patients. The MDRD is not an appropriate measure o f renal function for patients with body mass extremes or in patients with acute kidney failure. http://[employer]/DHnkdep http://[employer]/DHMCnkf Specimen Anatomical Collection Method Collection Time Receive d Time (Source) Location / / Volume Laterality Blood specimen 07/13/2017 4:26 AM 017 4:46 (specimen) EST AM EST Resulting Agency Comment Spec In Lab Makayla Wilson APRN CHEMISTRY ORDERABLES Performing Organization Address City/[facility]/ZIP Code Phon e Number [address] POCT Glucose (07/13/2017 3:52 AM EST) athologist Signature POC Glucose 93 65 - 199 [facility] [place] mg/dL [facility] [...] TEST ORDERABLE S Performing Organization Address City/[facility]/ZIP Code Phon e Number [address] POCT Glucose (07/13/2017 12:21 AM EST) athologist Signature POC Glucose 80 65 - 199 [place] mg/dL [facility] [...] TEST ORDERABLE S Performing Organization Address City/[facility]/ZIP [place] [address] POCT Glucose (07/12/2017 8:22 PM EST) athologist Signature POC Glucose 119 65 - 199 [place] mg/dL [facility] [...] Address City/State/ZIP Code Phon e Number [address] POCT Glucose (07/12/2017 4:02 PM EST) athologist Signature POC Glucose 114 65 - 199 [place] mg/dL [facility] [...] Address City/State/ZIP Code Phon e Number [address] POCT Glucose (07/12/2017 11:28 AM EST) athologist Signature POC Glucose 164 65 - 199 [facility] [place] mg/dL [facility] [...] Address City/State/ZIP Code Phon e Number [address] POCT Glucose (07/12/2017 7:34 AM EST) athologist Signature POC Glucose 109 65 - 199 [facility] [place] mg/dL [facility] [...] Organization Address City/State/ZIP [place] [address] (ABNORMAL) Basic Metabolic Panel (non-fasting) (07/12/2017 4:11 AM EST) P athologist Signature Glucose Lvl 92 65 - 199 [facility] mg/dL [facility] [...] CENTER LABORATORY Estimated GFR 58 (L) >=60 [facility] Comment: The reported eGFR should be multiplied b y 1.2 for patients. The MDRD is not an appropriate measure o f renal function for patients with body mass extremes or in patients with acute kidney failure. http://[employer]/DHnkdep http://[employer]/DHMCnkf Specimen Anatomical Collection Method Collection Time Receive d Time (Source) Location / / Volume Laterality Blood specimen 07/12/2017 4:11 AM 017 8:57 (specimen) EST AM EST Resulting Agency Comment Spec In Lab Makayla Wilson APRN CHEMISTRY ORDERABLES Performing Organization Address City/State/Z[place] [address] (ABNORMAL) Prothrombin Time (07/12/2017 [...] [place] STACIE HEMATOLOGY ORDERABLES Performing Organization Address City/[facility]/[place] [address] Potassium (07/12/2017 4:11 AM EST) athologist Signature Potassium 3.8 3.5 - 5.0 [facility] mmol/L [facility] [...] Agency Comment Spec In Lab Makayla [place] DOCKING SAW OPERATOR CHEMISTRY ORDERABLES Performing Organization Address City/[facility]/ZIP [place] [address] POCT Glucose (07/12/2017 4:10 AM EST) athologist Signature POC Glucose 90 65 - 199 [facility] [...] Address City/State/ZIP Code Phon e Number [address] POCT Glucose (07/11/2017 11:57 PM EST) athologist Signature POC Glucose 98 65 - 199 [facility] [...] Address City/State/ZIP Code Phon e Number [address] POCT Glucose (07/11/2017 8:32 PM EST) athologist Signature POC Glucose 146 65 - 199 [facility] [...] Organization Address City/State/[place] [address] XR Chest PA & [...] 65 - 199 [place] mg/dL [facility] [...] Address City/State/ZIP Code Phon e Number [address] POCT Glucose (07/11/2017 11:55 AM EST) athologist Signature POC Glucose 176 65 - 199 [place] mg/dL [facility] [...] TEST ORDERABLE S Performing Organization Address City/[facility]/ZIP Code Phon e Number [address] POCT Glucose (07/11/2017 7:53 AM EST) athologist Signature POC Glucose 189 65 - 199 [place] mg/dL [facility] [...] Organization Address City/State/Z[place] [address] POCT Glucose (07/11/2017 4:22 AM EST) athologist Signature POC Glucose 151 65 - 199 [place] mg/dL [facility] [...] TEST ORDERABLE S Performing Organization Address City/[facility]/ZIP [place] [address] Potassium (07/11/2017 2:20 AM EST) athologist Signature Potassium 4.5 3.5 - 5.0 [facility]/L [facility] [...] MD CHEMISTRY ORDERABLES Performing Organization Address City/[facility]/ZIP [place] [address] POCT Glucose (07/11/2017 12:17 AM EST) athologist Signature POC Glucose 162 65 - 199 [place] mg/dL [facility] [...] TEST ORDERABLE S Performing Organization Address City/[facility]/ZIP [place] [address] POCT Glucose (07/10/2017 8:47 PM EST) athologist Signature POC Glucose 191 65 - 199 [place] mg/dL [facility] [...] Organization Address City/State/[place] [address] POCT Glucose (07/10/2017 4:06 PM EST) athologist Signature POC Glucose 131 65 - 199 [place] mg/dL [facility] [...] TEST ORDERABLE S Performing Organization Address City/[facility]/ZIP [place] [address] POCT Glucose (07/10/2017 3:08 PM EST) athologist Signature POC Glucose 151 65 - 199 [place] mg/dL [facility] [...] Organization Address City/State/Z[place] [address] POCT Glucose (07/10/2017 2:25 PM EST) athologist Signature POC Glucose 146 65 - 199 [facility] [place] mg/dL [facility] [...] Address City/State/ZIP Code Phon e Number [address] POCT Glucose (07/10/2017 1:23 PM EST) P athologist Signature POC Glucose 166 65 - 199 [place] mg/dL [facility] [...] TEST ORDERABLE S Performing Organization Address City/[facility]/ZIP Code Phon e Number [address] POCT Glucose (07/10/2017 11:52 AM EST) P athologist Signature POC Glucose 157 65 - 199 [place] mg/dL [facility] [...] TEST ORDERABLE S Performing Organization Address City/[facility]/ZIP [place] [address] POCT Glucose (07/10/2017 11:01 AM EST) P athologist Signature POC Glucose 158 65 - 199 [place] mg/dL [facility] [...] Address City/State/ZIP Code Phon e Number [address] POCT Glucose (07/10/2017 9:54 AM EST) athologist Signature POC Glucose 160 65 - 199 [place] mg/dL [facility] [...] TEST ORDERABLE S Performing Organization Address City/[facility]/ZIP Code Phon e Number [address] POCT Glucose (07/10/2017 8:58 AM EST) athologist Signature POC Glucose 183 65 - 199 [place] mg/dL [facility] [...] Address City/State/ZIP Code Phon e Number [address] POCT Glucose (07/10/2017 8:01 AM EST) athologist Signature POC Glucose 173 65 - 199 [facility] [place] mg/dL [facility] [...] Address City/State/ZIP Code Phon e Number [address] POCT Glucose (07/10/2017 7:05 AM EST) athologist Signature POC Glucose 166 65 - 199 [place] mg/dL [facility] [...] Address City/State/ZIP Code Phon e Number [address] POCT Glucose (07/10/2017 6:00 AM EST) athologist Signature POC Glucose 162 65 - 199 [facility] [...] Organization Address City/State/[place] [address] (ABNORMAL) Differential, Automated (07/10/2017 4:28 AM EST) [facility] gist Method Time Signature Neutrophils % 87.9 % [facility] LAB[facility] Neutr Abs (ANC) 10.70 (H) 1.70 - [facility] 6.10 [facility] x10(3)/[facility] L LABORATORY Lymphocytes % 3.9 % [facility] Lymphocytes Abs 0.5 (L) 0.9 - 3.2 [facility] x10(3)/[facility] LABORATORY Monocytes % 7.0 % [facility] Monocyte Abs 0.8 0.3 - 0.9 [facility] x10(3)/[facility] LABORATORY Eosinophils % 0.3 % [facility] Eosinophils Abs 0.0 0.0 - 0.4 [facility] x10(3)/[facility] LABORATORY Basophils % 0.2 % [facility] Basophils Abs 0.0 0.0 - 0.1 [facility] x10(3)/[facility] LABORATORY Immature Gran [...] 0.00 - 0.04 x10(3)/[facility] LABORATORY Specimen Anatomical Collection Method Collection Time Receive d Time (Source) Location / / Volume Laterality Blood specimen 07/10/2017 4:28 AM 017 4:36 (specimen) EST AM EST Resulting Agency Comment Spec In Lab Yuan Webber MD HEMATOLOGY ORDERABLES Performing Organization Address City/State/ZIP [place] [address] (ABNORMAL) Hemogram (07/10/2017 4:28 AM EST) Analysis Performed At Patho logist Time Signature WBC 12.2 (H) 4.0 - 9.5 [facility] x10(3)/[facility] LABORATORY RBC 3.31 (L) 4.58 - [facility] 5.54 [facility] x10(6)/[facility] LABORATORY Hemoglobin 9.8 (L) 13.7 - [facility] 16.5 gm/dL [facility] LABORATORY Hematocrit 30.0 (L) 40.5 - [facility] 48.5 % [facility] LABOR[facility]ORY MCV 90.6 82.9 - [facility] 93.1 fL [facility] LABORATORY MCH 29.6 27.5 [facility] 32.1 pg [facility] MCHC 32.7 32.0 - [facility] 35.7 gm/dL [facility] LABORATORY Platelets 135 (L) 145 - 357 [facility] x10(3)/[facility] LABORATORY RDWSD 50.8 (H) 36.0 - [facility] 45.0 [facility] LABORATORY RDWCV 15.4 (H) 11.4 - [facility] 13.8 % [facility] LABORATORY MPV 10.0 7.6 - 12.9 [facility] LABORATORY nRBC % Auto 0.0 % [facility] LAB[facility] nRBC Abs Auto 0.000 0.000 - [facility] 0.000 [facility] x10(3)/[facility] LABORATORY Specimen Anatomical Collection Method Collection Time Receive d Time (Source) Location / / Volume Laterality Blood specimen 07/10/2017 4:28 AM 017 4:36 (specimen) EST AM EST Resulting Agency Comment Spec In Lab Yuan Webber MD HEMATOLOGY ORDERABLES Performing Organization Address City/State/ZIP [place] [address] (ABNORMAL) Basic Metabolic Panel (non-fasting) (07/10/2017 4:28 AM EST) athologist Signature Glucose Lvl 178 65 - 199 [facility] mg/dL [facility] [...] [facility] LABORATORY Estimated GFR 60 >=60 [facility] Comment: The reported eGFR should be multiplied b y 1.2 for patients. The MDRD is not an appropriate measure o f renal function for patients with body mass extremes or in patients with acute kidney failure. http://[employer]/DHnkdep http://[employer]/DHMCnkf Specimen Anatomical Collection Method Collection Time Receive d Time (Source) Location / / Volume Laterality Blood specimen 07/10/2017 4:28 AM 017 4:36 (specimen) EST AM EST Resulting Agency Comment Spec In Lab Yuan Webber MD CHEMISTRY ORDERABLES Performing Organization Address City/[facility]/ZIP Code Phon e Number [address] POCT Glucose (07/10/2017 4:26 AM EST) P athologist Signature POC Glucose 176 65 - 199 [facility] mg/dL [facility] [...] Organization Address City/State/Z[place] [address] (ABNORMAL) POCT Glucose (07/10/2017 3:06 AM EST) P athologist Signature POC Glucose 204 (H) 65 - 199 [facility] LAB[facility] Comment: Supplemental ranges: <140 mg/dL before meals <180 mg/dL all other times of the day Specimen Anatomical Collection Method Collection Time Receive d Time (Source) Location / / Volume Laterality Blood specimen 07/10/2017 3:06 AM 017 3:06 (specimen) EST AM EST Yuan Webber MD POINT OF CARE TEST ORDERABLE S Performing Organization Address City/[facility]/ZIP [place] [address] (ABNORMAL) POCT Glucose (07/10/2017 2:10 AM EST) P athologist Signature POC Glucose 203 (H) 65 - 199 [place] mg/dL [facility] [...] TEST ORDERABLE S Performing Organization Address City/[facility]/ZIP [place] [address] POCT Glucose (07/10/2017 1:09 AM EST) P athologist Signature POC Glucose 196 65 - 199 [place] mg/dL [facility] [...] Organization Address City/State/Z[place] [address] POCT Glucose (07/10/2017 12:10 AM EST) P athologist Signature POC Glucose 173 65 - 199 [place] mg/dL [facility] [...] Address City/State/ZIP Code Phon e Number [address] POCT Glucose (07/09/2017 11:01 PM EST) athologist Signature POC Glucose 140 65 - 199 [place] mg/dL [facility] [...] TEST ORDERABLE S Performing Organization Address City/[facility]/ZIP Code Phon e Number [address] POCT Glucose (07/09/2017 10:05 PM EST) athologist Signature POC Glucose 144 65 - 199 [place] mg/dL [facility] [...] Organization Address City/State/Z[place] [address] POCT Glucose (07/09/2017 9:31 PM EST) athologist Signature POC Glucose 121 65 - 199 [place] mg/dL [facility] [...] Address City/State/ZIP Code Phon e Number [address] POCT Glucose (07/09/2017 9:03 PM EST) athologist Signature POC Glucose 98 65 - 199 [place] mg/dL [facility] [...] Address City/State/ZIP Code Phon e Number [address] POCT Glucose (07/09/2017 8:09 PM EST) athologist Signature POC Glucose 117 65 - 199 [place] mg/dL [facility] [...] Address City/State/ZIP Code Phon e Number [address] POCT Glucose (07/09/2017 5:40 PM EST) athologist Signature POC Glucose 155 65 - 199 [facility] mg/dL [facility] [...] Address City/State/ZIP Code Phon e Number [address] POCT Glucose (07/09/2017 4:24 PM EST) athologist Signature POC Glucose 164 65 - 199 [place] RYAN mg/dL [facility] [...] TEST ORDERABLE S Performing Organization Address City/[facility]/ZIP Code Phon e Number [address] POCT Glucose (07/09/2017 3:19 PM EST) athologist Signature POC Glucose 166 65 - 199 [place] ZHAORYAN mg/dL [facility], [...] TEST ORDERABLE S Performing Organization Address City/[facility]/ZIP [place] [address] POCT Glucose (07/09/2017 2:26 PM EST) athologist Signature POC Glucose 179 65 - 199 [place] RYAN mg/dL [facility], [...] Organization Address City/State/ZIP [place] [address] (ABNORMAL) POCT Glucose (07/09/2017 1:29 PM EST) P athologist Signature POC Glucose 210 (H) 65 - 199 [facility] RYAN mg/dL [facility], [...] Organization Address City/State/ZIP [place] [address] POCT Glucose (07/09/2017 12:20 PM EST) athologist Signature POC Glucose 172 65 - 199 [facility] RYAN mg/dL [facility], [...] Organization Address City/State/ZIP [place] [address] POCT Glucose (07/09/2017 11:24 AM EST) athologist Signature POC Glucose 156 65 - 199 [facility] RYAN mg/dL [facility], [...] Organization Address City/State/ZIP [place] [address] POCT Glucose (07/09/2017 11:11 AM EST) athologist Signature POC Glucose 172 65 - 199 [place] ZHAORYAN mg/dL [facility], [...] Address City/State/ZIP Code Phon e Number [address] POCT Glucose (07/09/2017 10:08 AM EST) athologist Signature POC Glucose 176 65 - 199 [place] ZHAORYAN mg/dL [facility], [...] Address City/State/ZIP Code Phon e Number [address] POCT Glucose (07/09/2017 8:02 AM EST) athologist Signature POC Glucose 178 65 - 199 [place] ZHAORYAN mg/dL [facility], [...] Organization Address City/State/Z[place] [address] (ABNORMAL) BLOOD GAS 2 ARTERIAL (07/09/2017 5:37 AM EST) Analysis Performed At Patho logist Time Signature pH Art 7.36 7.35 - [facility] 7.45 [facility] LABORATORY pCO2 Art 38 35 - 45 [facility] mmHg [facility] LABORATORY pO2 Art 79 (L) 85 - 104 [facility] LABORATORY HCO3 Art 20.9 20.0 - [facility] 26.0 [facility] mmol/L [facility] LABORATORY BE Art -4.6 (L) -3.0 - 3.0 [facility] mmol/L [facility] LABORATORY Hgb Blood Gas 10.5 (L) 13.7 - [facility] 16.5 gm/dL [facility] O2HB Art 93.8 (L) 94.0 - [facility] 97.0 % [facility] LABORATORY COHB Art 0.3 % [facility] LAB[facility]ORY FIO2 Art 40 % [facility] LABORATORY PF Ratio Art 198 [facility] LABORATORY Specimen Anatomical Collection Method Collection Time Receive d Time (Source) Location / / Volume Laterality Blood specimen 07/09/2017 5:37 AM 017 5:37 (specimen) EST AM EST Yuan Webber MD CHEMISTRY ORDERABLES Performing Organization Address City/[facility]/ZIP Code Phon e Number [address] POCT Glucose (07/09/2017 3:27 AM EST) athologist Signature POC Glucose 192 65 - 199 [facility] mg/dL [facility] [...] Organization Address City/State/Z[place] [address] (ABNORMAL) Basic Metabolic Panel (non-fasting) (07/09/2017 2:30 AM EST) athologist Signature Glucose Lvl 179 65 - 199 [facility] mg/dL [facility], [...] or in patients with acute kidney failure. [email or web address] Specimen Anatomical Collection Method Collection Time Receive d Time (Source) Location / / Volume Laterality Blood specimen Venous Draw / 07/09/2017 2:30 AM 2016 2:42 (specimen) Unknown EST AM EST Resulting Agency Comment Spec In Lab Yuan Webber MD CHEMISTRY ORDERABLES Performing Organization Address City/[facility] [place] [address] (ABNORMAL) Potassium (07/09/2017 2:30 AM EST) P athologist Signature Potassium 5.1 (H) 3.5 - 5.0 [facility] mmol/L [facility], [...] MD CHEMISTRY ORDERABLES Performing Organization Address City/[facility]/ZIP [facility] [place] [address] (ABNORMAL) Hemogram (07/09/2017 2:30 AM EST) Analysis Performed At Patho logist Time Signature WBC 12.5 (H) 4.0 - 9.5 [facility] x10(3)/[facility] LABORATORY RBC 3.38 (L) 4.58 - [place] 5.54 [facility] x10(6)/[facility] LABORATORY Hemoglobin 10.1 (L) 13.7 - [place] ZHAORYAN 16.5 gm/dL [facility] LABORATORY Hematocrit 30.3 (L) 40.5 - [place] 48.5 % [facility] LABORATORY MCV 89.6 82.9 - [facility] 93.1 [facility] LABORATORY MCH 29.9 27.5 - [place] ZHAORYAN 32.1 pg [facility] LABORATORY MCHC 33.3 32.0 - [place] ZHAORAYN 35.7 gm/dL [facility] LABORATORY Platelets 127 (L) 145 - 357 [facility] x10(3)/[facility] LABORATORY RDWSD 49.3 (H) 36.0 - [facility] 45.0 [facility] LABORATORY RDWCV 15.2 (H) 11.4 - [facility] RYAN 13.8 % [facility] LABORATORY MPV 9.9 7.6 - 12.9 [facility] LABORATORY nRBC % Auto 0.0 % [facility] LABORATORY nRBC Abs Auto 0.000 0.000 - [place] ZHAORYAN 0.000 [facility] x10(3)/[facility] LABORATORY Specimen Anatomical Collection Method Collection Time Receive d Time (Source) Location / / Volume Laterality Blood specimen 07/09/2017 2:30 AM 017 2:41 (specimen) EST AM EST Resulting Agency Comment Spec In Lab Yuan Webber MD HEMATOLOGY ORDERABLES Performing Organization Address City/State/ZIP [place] [address] POCT Glucose (07/09/2017 2:10 AM EST) P athologist Signature POC Glucose 169 65 - 199 [facility] mg/dL [facility], [...] Address City/State/ZIP Code Phon e Number [address] POCT Glucose (07/09/2017 1:01 AM EST) P athologist Signature POC Glucose 173 65 - 199 K[place]AL[place] DAVIS mg/dL [facility] LABORATORY Comment: Supplemental ranges: <140 mg/dL before meals <180 mg/dL all other times of the day Specimen Anatomical Collection Method Collection Time Receive d Time (Source) Location / / Volume Laterality Blood specimen 07/09/2017 1:01 AM 017 1:01 (specimen) EST AM EST Yuan Webber MD POINT OF CARE TEST ORDERABLE S Performing Organization Address City/[facility]/ZIP [place] [address] Blood culture (07/09/2017 12:40 AM EST) [facility] gist Method Time Signature Blood Culture No growth KATALINA DAVIS at 5 days. [facility] LABORATORY Specimen Anatomical Collection Method Collection Time Receive d Time (Source) Location / / Volume Laterality Blood specimen STRUCTURE OF RIGHT 07/09/2017 12:40 3:58 (specimen) UPPER LIMB / AM EST AM EST Unknown Resulting Agency Comment Spec In Lab Yuan Webber MD MICROBIOLOGY - BLOOD ORDERAB LES Performing Organization Address City/[facility]/ZIP [place] [address] Blood culture (07/09/2017 12:30 AM EST) Patholo gist Method Time Signature Blood Culture No growth KATALINA DAVIS at 5 days. [facility] LABORATORY Specimen Anatomical Collection Method Collection Time Receive d Time (Source) Location / / Volume Laterality Blood specimen STRUCTURE OF LEFT 07/09/2017 12:30 06/25 3:59 (specimen) UPPER LIMB / AM EST AM EST Unknown Resulting Agency Comment Spec In Lab Yuan Webber MD MICROBIOLOGY - BLOOD ORDERAB LES Performing Organization Address City/[facility]/ZIP Code [place] [address] (ABNORMAL) Urinalysis Microscopic Exam (07/09/2017 12:05 AM EST) Analysis Performed At Patho logist Time Signature RBC UA 32 (H) 0 - 3 /HPF [facility] LABORATORY WBC UA 5 (H) 0 - 3 /HPF [facility] LABORATORY Squam Epith UA <1 <=4 /HPF [facility] LABORATORY Hyaline Cast 17 (H) 0 - 2 /LPF [facility] LABORATORY Gran Cast UA 1 (H) <=0 /LPF [facility] LABORATORY Uric Ac Bianca Rare (A) None /HPF [facility] LABORATORY Specimen (Source) Anatomical Collection Method Collection Time Re ceived Time Location / / Volume Laterality Urine specimen 07/09/2017 12:05 7 obtained via AM EST 12:39 AM EST indwelling urinary catheter (specimen) Resulting Agency Comment Spec In Lab Yuan Webber MD URINE ORDERABLES Performing Organization Address City/State/ZIP [place] [address] (ABNORMAL) Urinalysis with reflex Culture (07/09/2017 12:05 AM EST) Patholo gist Method Time Signature Glucose UA Negative Negative [facility] mg/dL [facility] LABORATORY Protein UA 30 (A) Negative [facility] mg/dL [facility] LABORATORY Bilirubin UA Negative Negative [facility] mg/dL [facility], [...] HOSPITAL LABORATORY Leukocytes UA Negative Negative [facility] LABORATORY Appearance UA Hazy (A) Clear [facility] LABOR[facility] Spec [place] UA 1.025 1.002 - 1.030 [facility] LABORATORY Color UA Yellow Yellow [facility] LABORATORY Culture Reflexed No [facility] LABORATORY Specimen (Source) Anatomical Collection Method Collection Time Re ceived Time Location / / Volume Laterality Urine specimen 07/09/2017 12:05 7 obtained via AM EST 12:39 AM EST indwelling urinary catheter (specimen) Resulting Agency Comment Spec In Lab Yuan Webber MD URINE ORDERABLES Performing Organization Address City/[facility]/ZIP Code Phon e Number [address] POCT Glucose (07/08/2017 11:01 PM EST) athologist Signature POC Glucose 191 65 - 199 [facility] mg/dL [facility] LABORATORY Comment: Supplemental ranges: <140 mg/dL before meals <180 mg/dL all other times of the day Specimen Anatomical Collection Method Collection Time Receive d Time (Source) Location / / Volume Laterality Blood specimen 07/08/2017 11:01 7 (specimen) PM EST 11:01 PM EST Yuan Webber MD POINT OF CARE TEST ORDERABLE S Performing Organization Address City/[facility]/ZIP Code Phon e Number [address] POCT Glucose (07/08/2017 10:04 PM EST) athologist Signature POC Glucose 198 65 - 199 [facility]/dL [facility] [...] Organization Address City/State/ZIP [place] [address] Prepare Albumin 5% in [...] Organization Address City/State/ZIP [place] [address] POCT Glucose (07/08/2017 8:28 PM EST) athologist Signature POC Glucose 195 65 - 199 [facility]/dL [facility] [...] Organization Address City/State/ZIP [place] [address] (ABNORMAL) POCT Glucose (07/08/2017 7:13 PM EST) athologist Signature POC Glucose 220 (H) 65 - 199 [facility]/dL [facility] [...] Organization Address City/State/ZIP [place] [address] POCT Glucose (07/08/2017 5:04 PM EST) athologist Signature POC Glucose 147 65 - 199 [facility] mg/dL [facility], [...] Organization Address City/State/ZIP [place] [address] (ABNORMAL) BLOOD GAS 2 ARTERIAL (07/08/2017 4:13 PM EST) Analysis Performed At Patho logist Time Signature pH Art 7.38 7.35 - [facility] 7.45 [facility] LABORATORY pCO2 Art 36 35 - 45 [facility] mmHg [facility] LABORATORY pO2 Art 91 85 - 104 [facility] LABORATORY HCO3 Art 20.9 20.0 - [facility] 26.0 [facility] mmol/L [facility] LABORATORY BE Art -4.2 (L) -3.0 - 3.0 [facility] mmol/L [facility] LABORATORY Hgb Blood Gas 11.7 (L) 13.7 - [facility] 16.5 gm/dL [facility] LABORATORY O2HB Art 95.1 94.0 - [facility] 97.0 % [facility] LABORATORY COHB Art 0.6 % [facility] FIO2 Art 40 % [facility] LABORATORY PF Ratio Art 228 [facility] LABORATORY Specimen Anatomical Collection Method Collection Time Receive d Time (Source) Location / / Volume Laterality Blood specimen 07/08/2017 4:13 PM 017 4:13 (specimen) EST PM EST Yuan Webber MD CHEMISTRY ORDERABLES Performing Organization Address City/[facility]/ZIP [facility] [place] [address] POCT Glucose (07/08/2017 4:01 PM EST) P athologist Signature POC Glucose 148 65 - 199 [facility] mg/dL [facility] LABORATORY Comment: Supplemental ranges: <140 mg/dL before meals <180 mg/dL all other times of the day Specimen Anatomical Collection Method Collection Time Receive d Time (Source) Location / / Volume Laterality Blood specimen 07/08/2017 4:01 PM 017 4:01 (specimen) EST PM EST Yuan Webber MD POINT OF CARE TEST ORDERABLE S Performing Organization Address City/[facility]/ZIP [place] [address] POCT Glucose (07/08/2017 3:21 PM EST) P athologist Signature POC Glucose 118 65 - 199 [facility] mg/dL [facility] [...] Address City/State/ZIP Code Phon e Number [address] POCT Glucose (07/08/2017 2:01 PM EST) athologist Signature POC Glucose 129 65 - 199 [place] RYAN mg/dL [facility], [...] TEST ORDERABLE S Performing Organization Address City/[facility]/ZIP Code Phon e Number [address] POCT Glucose (07/08/2017 11:53 AM EST) athologist Signature POC Glucose 156 65 - 199 [place] RYAN mg/dL [facility], [...] TEST ORDERABLE S Performing Organization Address City/[facility]/ZIP Code Phon e Number [address] POCT Glucose (07/08/2017 11:04 AM EST) athologist Signature POC Glucose 181 65 - 199 [place] RY[place] mg/dL [facility], [...] Organization Address City/State/ZIP [place] [address] (ABNORMAL) POCT Glucose (07/08/2017 9:24 AM EST) athologist Signature POC Glucose 203 (H) 65 - 199 [facility] mg/dL [facility], [...] Organization Address City/State/Z[place] [address] APTT (07/08/2017 8:40 AM EST) athologist Signature PTT 33 25 - 35 sec [facility] LABORATORY Comment: The recommended therapeutic range for fu ll dose, unfractionated heparin at [facility] is 80 ? 114 seconds. The use [...] MD HEMATOLOGY ORDERABLES Performing Organization Address City/[facility]/ZIP [place] [address] (ABNORMAL) Prothrombin Time (07/08/2017 [...] Organization Address City/State/ZIP [place] [address] (ABNORMAL) POCT Glucose (07/08/2017 7:38 AM EST) athologist Signature POC Glucose 232 (H) 65 - 199 [facility] mg/dL [facility] LABORATORY Comment: Supplemental ranges: <140 mg/dL before meals <180 mg/dL all other times of the day Specimen Anatomical Collection Method Collection Time Receive d Time (Source) Location / / Volume Laterality Blood specimen 07/08/2017 7:38 AM 017 7:38 (specimen) EST AM EST Yuan Webber MD POINT OF CARE TEST ORDERABLE S Performing Organization Address City/[facility]/ZIP [place] [address] (ABNORMAL) POCT Glucose (07/08/2017 7:07 AM EST) athologist Signature POC Glucose 234 (H) 65 - 199 [facility] mg/dL [facility] LABORATORY Comment: Supplemental ranges: <140 mg/dL before meals <180 mg/dL all other times of the day Specimen Anatomical Collection Method Collection Time Receive d Time (Source) Location / / Volume Laterality Blood specimen 07/08/2017 7:07 AM 017 7:07 (specimen) EST AM EST Yuan Webber MD POINT OF CARE TEST ORDERABLE S Performing Organization Address City/[facility]/ZIP [place] [address] (ABNORMAL) POCT Glucose (07/08/2017 6:04 AM EST) athologist Signature POC Glucose 225 (H) 65 - 199 [facility] mg/dL [facility] [...] Organization Address City/State/Z[place] [address] (ABNORMAL) POCT Glucose (07/08/2017 5:31 AM EST) athologist Signature POC Glucose 216 (H) 65 - 199 [facility] mg/dL [facility] [...] Organization Address City/State/ZIP [place] [address] (ABNORMAL) POCT Glucose (07/08/2017 4:52 AM EST) athologist Signature POC Glucose 257 (H) 65 - 199 [facility] mg/dL [facility] [...] Organization Address City/State/ZIP [place] [address] (ABNORMAL) BLOOD GAS 2 ARTERIAL (07/08/2017 4:04 AM EST) Analysis Performed At Patho logist Time Signature pH Art 7.30 (L) 7.35 - [facility] 7.45 [facility] LABORATORY pCO2 Art 41 35 - 45 [facility] mmHg [facility] LABORATORY pO2 Art 83 (L) 85 - 104 [facility] LABORATORY HCO3 Art 19.6 (L) 20.0 - [facility] 26.0 [facility] mmol/L [facility] LABORATORY BE Art -6.8 (L) -3.0 - 3.0 [facility] mmol/L [facility] LABORATORY Hgb Blood Gas 12.2 (L) 13.7 - [facility] 16.5 gm/dL [facility] O2HB Art 93.5 (L) 94.0 - [facility] 97.0 % [facility] COHB Art 0.4 % [facility] [...] [facility] Comment: Noted by plant control operator. FIO2 Art 40 % [facility] LABORATORY PF Ratio Art 208 [facility] LABORATORY Specimen Anatomical Collection Method Collection Time Receive d Time (Source) Location / / Volume Laterality Blood specimen 07/08/2017 4:04 AM 017 4:04 (specimen) EST AM EST Daphne Shahid MD CHEMISTRY ORDERABLES Performing Organization Address City/State/ZIP Code Phon e Number [address] Scan, Peripheral Blood (07/08/2017 [...] MD HEMATOLOGY ORDERABLES Performing Organization Address City/[facility]/ZIP Code Phon e Number [address] (ABNORMAL) Differential, Automated (07/08/2017 4:00 AM EST) Patholo gist Method Time Signature Neutrophils % 85.4 % [facility] LABORATORY Neutr Abs (ANC) 16.07 (H) 1.70 - [facility] 6.10 [facility] x10(3)/[facility] LABORATORY Lymphocytes % 3.5 % [facility] LABORATORY Lymphocytes Abs 0.6 (L) 0.9 - 3.2 [facility] x10(3)/[facility] LABORATORY Monocytes % 10.4 % [facility] LABORATORY Monocyte Abs 2.0 (H) 0.3 - 0.9 [facility] x10(3)/[facility] LABORATORY Eosinophils % 0.0 % [facility] LABORATORY Eosinophils Abs 0.0 0.0 - 0.4 [facility] x10(3)/[facility] LABORATORY Basophils % 0.1 % [facility] LABORATORY Basophils Abs 0.0 0.0 - 0.1 [facility] x10(3)/[facility] LABORATORY Immature Gran [...] 0.00 - 0.04 x10(3)/[facility] LABORATORY Specimen Anatomical Collection Method Collection Time Receive d Time (Source) Location / / Volume Laterality Blood specimen 07/08/2017 4:00 AM 017 4:09 (specimen) EST AM EST Resulting Agency Comment Spec In Lab Yuan Webber MD HEMATOLOGY ORDERABLES Performing Organization Address City/State/ZIP [place] [address] (ABNORMAL) Hemogram (07/08/2017 4:00 AM EST) Analysis Performed At Patho logist Time Signature WBC 18.8 (H) 4.0 - 9.5 [facility] x10(3)/[facility] LABORATORY RBC 4.00 (L) 4.58 [facility]54 [facility] x10(6)/[facility] LABORATORY Hemoglobin 11.9 (L) 13.7 - [facility] 16.5 gm/dL [facility] LABORATORY Hematocrit 35.9 (L) 40.5 - [facility] 48.5 % [facility] LABORATORY MCV 89.8 82.9 - [facility] 93.1 [facility] LABORATORY MCH 29.8 27.5 - [facility] RYAN 32.1 pg [facility] LABORATORY MCHC 33.1 32.0 [facility].7 gm/dL [facility] LABORATORY Platelets 232 145 - 357 [facility] x10(3)/[facility] LABORATORY RDWSD 47.6 (H) 36.0 - [facility] RYAN 45.0 [facility] RDWCV 14.5 (H) 11.4 - [facility] RYAN 13.8 % [facility] LABORATORY MPV 9.5 7.6 - 12.9 [facility] LABORATORY nRBC % Auto 0.0 % [facility] LABORATORY nRBC Abs Auto 0.000 0.000 - [facility] 0.000 [facility] x10(3)/[facility] LABORATORY Specimen Anatomical Collection Method Collection Time Receive d Time (Source) Location / / Volume Laterality Blood specimen 07/08/2017 4:00 AM 017 4:09 (specimen) EST AM EST Resulting Agency Comment Spec In Lab Yuan Webber MD HEMATOLOGY ORDERABLES Performing Organization Address City/[facility]/[place]IP [place] [address] (ABNORMAL) Electrolytes panel (07/08/2017 4:00 AM EST) athologist Signature Sodium 139 135 - 145 [facility] mmol/L [facility] LABORATORY Potassium 4.7 3.5 - 5.0 [facility] mmol/L [facility] MD CHEMISTRY ORDERABLES Performing Organization Address City/[facility]/[place] [address] (ABNORMAL) Cardiac Enzymes (LEB/CGP) (07/08/2017 4:00 AM EST) P athologist Signature Troponin-T 1.88 (H) 0.00 - [facility] 0.00 ng/mL [facility] [...] meets the diagnosis for a myocardial infarction (ND). Detection of a rise and/or fall of [...] additional sample may be indicated. Reference: Third [place] Definition of Myocardial Infarction. Journal of the [place] [employer] 2012;60:1581-98 CK, Total 413 (H) 0 - 200 unit/L [facility] LABORATORY Comment: result rechecked-K Specimen Anatomical Collection Method Collection Time Receive d Time (Source) Location / / Volume Laterality Blood specimen 07/08/2017 4:00 AM 017 4:09 (specimen) EST AM EST Resulting Agency Comment Spec In Lab Yuan Webber MD CHEMISTRY ORDERABLES Performing Organization Address City/State/ZIP [place] [address] (ABNORMAL) Glucose, fasting (07/08/2017 4:00 AM EST) athologist Signature Glucose 287 (H) 65 - 99 [facility] Fasting mg/dL [facility] [...] MD CHEMISTRY ORDERABLES Performing Organization Address City/[facility] Code Phon e Number [address] (ABNORMAL) Creatinine (07/08/2017 4:00 AM EST) Analysis Performed At Patho logist Time Signature Creatinine 1.55 (H) 0.80 - [place] RYAN 1.50 mg/dL [facility] LABORATORY Estimated GFR 44 (L) >=60 [facility] LABORATORY Comment: The reported eGFR should be multiplied b y 1.2 for patients. The MDRD is not an appropriate measure o f renal function for patients with body mass extremes or in patients with acute kidney failure. http://[employer]/DHnkdep http://[employer]/DHMCnkf Specimen Anatomical Collection Method Collection Time Receive d Time (Source) Location / / Volume Laterality Blood specimen 07/08/2017 4:00 AM 017 4:09 (specimen) EST AM EST Resulting Agency Comment Spec In Lab Yuan Webber MD CHEMISTRY ORDERABLES Performing Organization Address City/[facility]/ZIP Code Phon e Number [address] BUN (07/08/2017 4:00 AM EST) P athologist Signature BUN 16 10 - 20 [place] [facility] mg/dL [facility] LABORATORY Specimen Anatomical Collection Method Collection Time Receive d Time (Source) Location / / Volume Laterality Blood specimen 07/08/2017 4:00 AM 017 4:09 (specimen) EST AM EST Resulting Agency Comment Spec In Lab Yuan Webber MD CHEMISTRY ORDERABLES Performing Organization Address City/[facility]/ZIP Code Phon e Number [address] (ABNORMAL) POCT Glucose (07/08/2017 3:00 AM EST) P athologist Signature POC Glucose 273 (H) 65 - 199 [facility] LABORATORY Comment: Supplemental ranges: <140 mg/dL before meals <180 mg/dL all other times of the day Specimen Anatomical Collection Method Collection Time Receive d Time (Source) Location / / Volume Laterality Blood specimen 07/08/2017 3:00 AM 017 3:00 (specimen) EST AM EST Daphne Shahid MD POINT OF CARE TEST ORDERABLE S Performing Organization Address City/[facility]/[place] [address] (ABNORMAL) POCT Glucose (07/08/2017 1:57 AM EST) P athologist Signature POC Glucose 288 (H) 65 - 199 [facility]/dL [facility] LABORATORY Comment: Supplemental ranges: <140 mg/dL before meals <180 mg/dL all other times of the day Specimen Anatomical Collection Method Collection Time Receive d Time (Source) Location / / Volume Laterality Blood specimen 07/08/2017 1:57 AM 017 1:57 (specimen) EST AM EST Daphne Shahid MD POINT OF CARE TEST ORDERABLE S Performing Organization Address City/[facility]/[place] [address] (ABNORMAL) POCT Glucose (07/08/2017 1:01 AM EST) P athologist Signature POC Glucose 315 (H) 65 - 199 [facility] mg/dL [facility] [...] Organization Address City/State/ZIP [place] [address] (ABNORMAL) BLOOD GAS 2 ARTERIAL (07/08/2017 12:09 AM EST) athologist Signature pH Art 7.26 7.35 - [facility] (Critical) 7.45 [facility] LABORATORY Comment: Noted by plant control operator. pCO2 Art 41 35 - 45 [...] [facility] LAB[facility] COHB Art 0.2 % [facility] [...] [facility] LAB[facility] Comment: Noted by plant control operator. FIO2 Art 40 % [facility] LABORATORY PF Ratio Art 240 [facility] LABORATORY Specimen Anatomical Collection Method Collection Time Receive d Time (Source) Location / / Volume Laterality Blood specimen Arterial Draw / 07/08/2017 12:09 2016 5:31 (specimen) Unknown AM EST AM EST Resulting Agency Comment Spec In Lab Samy Maldonado MD CHEMISTRY ORDERABLES Performing Organization Address City/[facility]/[place] [address] (ABNORMAL) POCT Glucose (07/07/2017 10:56 PM EST) P athologist Signature POC Glucose 292 (H) 65 - 199 [facility] mg/dL [facility] [...] Organization Address City/State/[place] [address] (ABNORMAL) BLOOD GAS 2 ARTERIAL (07/07/2017 10:04 PM EST) P athologist Signature pH Art 7.22 7.35 - [facility] (Critical) 7.45 [facility] LABORATORY Comment: Noted by plant control operator. pCO2 Art 42 35 - 45 [...] [facility] COHB Art 0.7 % [facility] [...] [facility] Comment: Noted by plant control operator. FIO2 Art 40 % [facility] LABORATORY PF Ratio Art 235 [facility] LABORATORY Specimen Anatomical Collection Method Collection Time Receive d Time (Source) Location / / Volume Laterality Blood specimen 07/07/2017 10:04 7 (specimen) PM EST 10:04 PM EST Daphne Shahid MD CHEMISTRY ORDERABLES Performing Organization Address City/State/ZIP [place] [address] (ABNORMAL) Hemoglobin (07/07/2017 10:00 PM EST) athologist Signature Hemoglobin 12.8 (L) 13.7 - [place] 16.5 gm/dL [facility] LABORATORY Specimen Anatomical Collection Method Collection Time Receive d Time (Source) Location / / Volume Laterality Blood specimen 07/07/2017 10:00 7 (specimen) PM EST 10:13 PM EST Resulting Agency Comment Spec In Lab Yuan Webber MD HEMATOLOGY ORDERABLES Performing Organization Address City/[facility] Phon e Number [address] (ABNORMAL) Potassium (07/07/2017 10:00 PM EST) athologist [facility] Potassium 3.4 (L) 3.5 - [facility] [...] CHEMISTRY ORDERABLES Performing Organization Address [facility] [place] [address] (ABNORMAL) POCT Glucose (07/07/2017 8:49 PM EST) athologist Signature POC Glucose 241 (H) 65 - 199 [facility]/dL [facility] LABORATORY Comment: Supplemental ranges: <140 mg/dL before meals <180 mg/dL all other times of the day Specimen Anatomical Collection Method Collection Time Receive d Time (Source) Location / / Volume Laterality Blood specimen 07/07/2017 8:49 PM 017 8:49 (specimen) EST PM EST Daphne Shahid MD POINT OF CARE TEST ORDERABLE S Performing Organization Address City/[facility]/ZIP Code Phon e Number [address] Prepare Albumin 5% in [...] BLOOD BANK ORDERABLES Performing Organization Address City/[facility]/ZIP Code Phon e Number [address] EKG 12 Lead (07/07/2017 7:17 PM EST) Component Value Ref Range Test Analysis Performed Pathologis t Method Time At Signature Ventricular rate 75 BPM MUSE SYSTEM Atrial Rate 75 BPM MUSE SYSTEM P-R Interval 168 ms MUSE SYSTEM QRS Duration 104 ms MUSE SYSTEM Q-T Interval 462 ms MUSE SYSTEM QTC Calculated 515 ms MUSE SYSTEM (Bezet) Calculated P [place] 52 degrees MUSE SYSTEM Calculated R [place] -40 degrees MUSE SYSTEM Calculated T [place] 39 degrees MUSE SYSTEM INTERPRETATION Normal sinus [...] Art 7.21 7.35 - [facility] (Critical) 7.45 [facility] LABORATORY Comment: Noted by plant control operator. pCO2 Art 50 (H) 35 - [...] [facility] COHB Art 0.5 % [facility] LABORATORY Comment: Nonsmokers: 0.5-1.5% COHB Smokers: Variable, but usually less than 10% Toxic: 20-30% COHB Lethal: Greater than 60% COHB METHB Art 0.7 <=1.5 % [facility] LABORATORY Na Whole Blood 140 135 - 145 mmol/L [facility] LABORATORY K Whole Blood 3.0 (Critical) 3.5 - 5.0 mmol/L [facility] LABORATORY Comment: Noted by plant control operator. Please note: Patients with WBC >100,000 [...] [facility] Comment: Noted by plant control operator. FIO2 Art 100 % [facility] LABORATORY PF Ratio Art 238 [facility] LABORATORY Specimen Anatomical Collection Method Collection Time Receive d Time (Source) Location / / Volume Laterality Blood specimen 07/07/2017 6:57 PM 017 6:57 (specimen) EST PM EST Daphne Shahid MD CHEMISTRY ORDERABLES Performing Organization Address City/State/ZIP [place] [address] (ABNORMAL) BLOOD GAS 2 ARTERIAL (07/07/2017 5:31 PM EST) athologist Signature pH Art 7.29 7.35 - [facility] (Critical) 7.45 [facility] LABORATORY Comment: Noted by plant control operator. pCO2 Art 48 (H) 35 - [...] [facility] COHB Art 0.3 % [facility] [...] MD CHEMISTRY ORDERABLES Performing Organization Address City/[facility]/[place] [address] Fibrinogen (07/07/2017 5:30 PM EST) athologist Signature Fibrinogen 224 180 - 510 [facility] mg/dL [facility] [...] MD HEMATOLOGY ORDERABLES Performing Organization Address City/[facility]/ZIP Code Phon e Number [address] APTT (07/07/2017 5:30 PM EST) athologist Signature PTT 30 25 - 35 sec [facility] LABORATORY Comment: The recommended therapeutic range for fu ll dose, unfractionated heparin at [facility] is 80 ? 114 seconds. The use [...] MD HEMATOLOGY ORDERABLES Performing Organization Address City/[facility]/ZIP [facility] Phon e Number [address] (ABNORMAL) Prothrombin Time (07/07/2017 [...] City/State/ZIP Code Phon e Number [place] [id number] HOSPITAL LAB[address]ORY Drive (ABNORMAL) Hemogram (07/07/2017 5:30 PM EST) P athologist Signature WBC 19.6 (H) 4.0 - 9.5 [facility] x10(3)/[facility] LABORATORY RBC 3.08 (L) 4.58 - [facility] 5.54 [facility] x10(6)/[facility] LABORATORY Hemoglobin 9.2 (L) 13.7 - [facility] 16.5 gm/dL [facility] LABORATORY Hematocrit 28.0 (L) 40.5 - [facility] 48.5 % [facility] LABORATORY Comment: This result has been called to MONICA MORAN by DONALD GROSSMAN on 07 07 2017 at 1759, and has been read back. MCV 90.9 82.9 - 93.1 fL [facility] LABORATORY MCH 29.9 27.5 - 32.1 pg [facility] LABORATORY MCHC 32.9 32.0 - 35.7 gm/dL [facility] LABORATORY Platelets 155 145 - 357 x10(3)/[facility] LABORATORY RDWSD 46.5 (H) 36.0 - 45.0 fL [facility] LABORATORY RDWCV 14.1 (H) 11.4 - 13.8 % [facility] LABORATORY MPV 9.5 7.6 - 12.[address] [facility] LABORATORY nRBC % Auto 0.0 % [facility] LABORATORY nRBC Abs Auto 0.000 0.000 - 0.000 x10(3)/[facility] LABORATORY Specimen Anatomical Collection Method Collection Time Receive d Time (Source) Location / / Volume Laterality Blood specimen 07/07/2017 5:30 PM 017 5:34 (specimen) EST PM EST Resulting Agency Comment Spec In Lab Yifan Perez MD HEMATOLOGY ORDERABLES Performing Organization Address [facility] Phon e Number [address] Prepare Platelets, Apheresis (07/07/2017 5:00 PM EST) athologist Signature Dispensed? Yes [facility] LABORATORY Specimen Anatomical Collection Method Collection Time Receive d Time (Source) Location / / Volume Laterality Blood specimen 07/07/2017 5:00 PM 017 4:58 (specimen) EST PM EST Daphne Shahid MD BLOOD BANK ORDERABLES Performing Organization Address [facility] Phon e Number [address] Platelet count (07/07/2017 4:55 PM EST) athologist Signature Platelets 177 145 - 357 [facility] x10(3)/[facility] LABORATORY Plat Immature 1.5 0.0 - 7.4 [facility] LABORATORY Comment: Limitation of the Immature Platelet Frac tion (IPF)-May be less reliable when the platelet count is less than 86k328/u L due to statistical imprecision. The IPF [...] in a decreased state of production. References: [employer] The Clinical Value of the Immature Platelet Fraction (IPF) in Cell Recovery Document Number [id number] 12/2010 [employer] The Role of the Imm ature Platelet Fraction (IPF) in the Differential Diagnosis of Thrombocytopen ia, Document [id number] V012/04/13 P012/06 Specimen Anatomical Collection Method Collection Time Receive d Time (Source) Location / / Volume Laterality Blood specimen 07/07/2017 4:55 PM 017 5:13 (specimen) EST PM EST Resulting Agency Comment Spec In Lab Daphne Shahid MD HEMATOLOGY ORDERABLES Performing Organization Address City/[facility]/ZIP [place] [address] (ABNORMAL) Hemoglobin and Hematocrit, blood (07/07/2017 4:55 PM EST) P athologist Signature Hemoglobin 9.1 (L) 13.7 - 16.5 [facility] gm/dL [facility] [...] MD HEMATOLOGY ORDERABLES Performing Organization Address City/[facility]/ZIP [place] [address] (ABNORMAL) BLOOD GAS 2 ARTERIAL (07/07/2017 4:38 PM EST) Analysis Performed At Patho logist Time Signature pH Art 7.37 7.35 - [facility] 7.45 [facility] LABORATORY pCO2 Art 44 35 - 45 [facility] LABORATORY pO2 Art 322 (H) 85 - 104 [facility] HCO3 Art 24.9 20.0 - [facility] 26.0 [facility] mmol/L [facility] LABORATORY BE Art -0.4 -3.0 - 3.0 [facility] mmol/L [facility] Hgb Blood Gas 10.1 (L) 13.7 - [facility] 16.5 gm/dL [facility] O2HB Art 98.7 (H) 94.0 - [facility] 97.0 % [facility] COHB Art 0.1 % [facility] [...] [facility] Comment: Noted by plant control operator. Note: ??Total bilirubin higher than 20 [...] Organization Address City/State/ZIP [place] [address] (ABNORMAL) BLOOD GAS 2 VENOUS (07/07/2017 4:06 PM EST) Analysis Performed At Patho logist Time Signature pH Cody 7.31 (L) 7.32 - [facility] 7.42 [facility] LABORATORY pCO2 [place] 47 41 - 51 [facility] LABORATORY pO2 [place] 53 (H) 25 - 40 [facility] LABORATORY HCO3 [place] 22.7 mmol/L [facility] LABORATORY BE Cody -3.7 mmol/L [facility] LABORATORY Hgb Blood Gas 10.2 (L) 13.7 - [facility] 16.5 gm/dL [facility] LABORATORY O2HB [place] 81.0 % [facility] [...] [facility] Comment: Noted by plant control operator. Note: ??Total bilirubin higher than 20 m g/dL may lead to falsely low ionized calcium. CL Whole Blood 100 98 - 107 mmol/L [facility] LABORATORY Gluc Whole Bld 231 (H) 65 - 199 mg/dL [facility] LABORATORY Comment: Diabetes: >=200 mg/dL plus symp toms Lactate WB 1.1 0.5 - 2.2 mmol/L [facility] LABORATORY BGas Source Venous [facility] LABORATORY Specimen Anatomical Collection Method Collection Time Receive d Time (Source) Location / / Volume Laterality Blood specimen 07/07/2017 4:06 PM 017 4:06 (specimen) EST PM EST Daphne Shahid MD CHEMISTRY ORDERABLES Performing Organization Address City/State/ZIP [place] [address] (ABNORMAL) BLOOD GAS 2 ARTERIAL (07/07/2017 4:05 PM EST) Analysis Performed At Patho logist Time Signature pH Art 7.36 7.35 - [facility] 7.45 [facility] LABORATORY pCO2 Art 40 35 - 45 [facility] LABORATORY pO2 Art 282 (H) 85 - 104 [facility] LABORATORY HCO3 Art 22.1 20.0 - [facility] 26.0 [facility] mmol/L [facility] LABORATORY BE Art -3.4 (L) -3.0 - 3.0 [facility] mmol/L [facility] LABORATORY Hgb Blood Gas 10.2 (L) 13.7 - [facility] 16.5 gm/dL [facility] LABORATORY O2HB Art 98.4 (H) 94.0 - [facility] 97.0 % [facility] LABORATORY COHB Art 0.3 % [facility] Comment: Noted by plant control operator. Note: ??Total bilirubin higher than 20 [...] Organization Address City/State/ZIP [place] [address] (ABNORMAL) BLOOD GAS 2 ARTERIAL (07/07/2017 2:29 PM EST) Analysis Performed At Patho logist Time Signature pH Art 7.43 7.35 - [facility] 7.45 [facility] LABORATORY pCO2 Art 36 35 - 45 [facility] LABORATORY pO2 Art 221 (H) 85 - 104 [facility] LABORATORY HCO3 Art 23.2 20.0 - [facility] 26.0 [facility] mmol/L [facility] LABORATORY BE Art -1.2 -3.0 - 3.0 [facility] mmol/L [facility] LABORATORY Hgb Blood Gas 13.9 13.7 - [facility] 16.5 gm/dL [facility] LABORATORY O2HB Art 97.8 (H) 94.0 - [facility] 97.0 % [facility] LABORATORY COHB Art 1.1 % [facility] [...] MD CHEMISTRY ORDERABLES Performing Organization Address City/[facility] [place] [address] Prepare Coag Factors (Non-Hemophilia) (07/07/2017 1:25 PM EST) P athologist Signature Dispensed? Yes [facility] LABOR[facility]ORY Specimen Anatomical Collection Method Collection Time Receive d Time (Source) Location / / Volume Laterality Blood specimen 07/07/2017 1:25 PM 017 1:21 (specimen) EST PM EST Daphne Shahid MD BLOOD BANK ORDERABLES Performing Organization Address City/[facility]/ZIP [place] [address] Prepare RBC (07/07/2017 1:10 PM EST) P athologist Signature Dispensed? Yes [facility] Specimen Anatomical Collection Method Collection Time Receive d Time (Source) Location / / Volume Laterality Blood specimen 07/07/2017 1:10 PM 017 1:05 (specimen) EST PM EST Daphne Shahid MD BLOOD BANK ORDERABLES Performing Organization Address City/[facility]/ZIP [place] [address] POCT Glucose (07/07/2017 11:56 AM EST) athologist Signature POC Glucose 188 65 - 199 [place] mg/dL [facility] [...] Address City/State/ZIP Code Phon e Number [address] POCT Glucose (07/07/2017 11:05 AM EST) athologist Signature POC Glucose 168 65 - 199 [facility] RYAN mg/dL [facility] [...] Organization Address City/State/ZIP [place] [address] POCT Glucose (07/07/2017 10:02 AM EST) athologist Signature POC Glucose 191 65 - 199 [place] [facility] mg/dL [facility] [...] Organization Address City/State/ZIP [place] [address] POCT Glucose (07/07/2017 7:53 AM EST) athologist Signature POC Glucose 178 65 - 199 [facility] R[facility]AN mg/dL [facility] [...] Organization Address City/State/ZIP [place] [address] POCT Glucose (07/07/2017 7:03 AM EST) athologist Signature POC Glucose 188 65 - 199 [facility] R[facility]AN mg/dL [facility] [...] Organization Address City/State/ZIP [place] [address] (ABNORMAL) POCT Glucose (07/07/2017 6:17 AM EST) athologist Signature POC Glucose 207 (H) 65 - 199 [facility] mg/dL [facility] G.H. BING, MD, [...] Organization Address City/State/[place] [address] Differential, Automated (07/07/2017 5:15 AM EST) P athologist Signature Neutrophils % 69.7 % [facility] LABORATORY Neutr Abs (ANC) 5.32 1.70 - [facility] 6.10 [facility] x10(3)/[facility] LABORATORY Lymphocytes % 16.3 % [facility] Lymphocytes Abs 1.2 0.9 - 3.2 [facility] x10(3)/[facility] LABORATORY Monocytes % 10.5 % [facility] Monocyte Abs 0.8 0.3 - 0.9 [facility] x10(3)/[facility] LABORATORY Eosinophils % 2.5 % [facility] Eosinophils Abs 0.2 0.0 - 0.4 [facility] x10(3)/[facility] LABORATORY Basophils % 0.7 % [facility]OR[facility] Basophils Abs 0.0 0.0 - 0.1 [facility] x10(3)/[facility] LABORATORY Immature Gran % 0.30 % [...] x10(3)/[facility] LABORATORY Specimen Anatomical Collection Method Collection Time Receive d Time (Source) Location / / Volume Laterality Blood specimen 07/07/2017 5:15 AM 017 5:34 (specimen) EST AM EST Resulting Agency Comment Spec In Lab Daphne Shahid MD HEMATOLOGY ORDERABLES Performing Organization Address City/State/ZIP [place] [address] (ABNORMAL) Hemogram (07/07/2017 5:15 AM EST) Analysis Performed At Patho logist Time Signature WBC 7.6 4.0 - 9.5 [facility] x10(3)/[facility] LABORATORY RBC 4.82 4.58 - [facility] 5.54 [facility] x10(6)/[facility] LABORATORY Hemoglobin 14.4 13.7 - [facility] 16.5 gm/dL [facility] LABORATORY Hematocrit 42.1 40.5 - [facility] 48.5 % [facility] LABORATORY MCV 87.3 82.9 - [facility] 93.1 [facility] LABORATORY MCH 29.9 27.5 - [facility] 32.1 pg [facility] LABORATORY MCHC 34.2 32.0 - [facility] 35.7 gm/dL [facility] LABORATORY Platelets 188 145 - 357 [facility] x10(3)/[facility] LABORATORY RDWSD 45.1 (H) 36.0 - [facility] 45.0 [facility] LABORATORY RDWCV 14.3 (H) 11.4 - [facility] 13.8 % [facility] LABORATORY MPV 9.4 7.6 - 12.9 [facility] LABORATORY nRBC % Auto 0.0 % [facility] LABORATORY nRBC Abs Auto 0.000 0.000 - [facility] 0.000 [facility] x10(3)/[facility] LABORATORY Specimen Anatomical Collection Method Collection Time Receive d Time (Source) Location / / Volume Laterality Blood specimen 07/07/2017 5:15 AM 017 5:34 (specimen) EST AM EST Resulting Agency Comment Spec In Lab Daphne Shahid MD HEMATOLOGY ORDERABLES Performing Organization Address City/State/ZIP [place] [address] (ABNORMAL) APTT (07/07/2017 5:15 AM EST) P athologist Signature PTT 69 (H) 25 - 35 sec [facility] LABORATORY Comment: The recommended therapeutic range for fu ll dose, unfractionated heparin at [facility] is 80 ? 114 seconds. The use [...] Address City/State/ZIP Code Phon e Number [address] Magnesium (07/07/2017 5:15 AM EST) athologist Signature Magnesium 0.94 0.69 - 1.07 [facility] mmol/L [facility] LABORATORY Specimen Anatomical Collection Method Collection Time Receive d Time (Source) Location / / Volume Laterality Blood specimen 07/07/2017 5:15 AM 017 5:34 (specimen) EST AM EST Resulting Agency Comment Spec In Lab Daphne Shahid MD CHEMISTRY ORDERABLES Performing Organization Address City/[facility] Code Phon e Number [address] (ABNORMAL) Basic Metabolic Panel (non-fasting) (07/07/2017 5:15 AM EST) athologist Signature Glucose Lvl 203 (H) 65 - 199 [facility] mg/dL [facility] [...] or in patients with acute kidney failure. [email or web address] [email or web address] Specimen Anatomical Collection Method Collection Time Receive d Time (Source) Location / / Volume Laterality Blood specimen 07/07/2017 5:15 AM 017 5:34 (specimen) EST AM EST Resulting Agency Comment Spec In Lab Daphne Shahid MD CHEMISTRY ORDERABLES Performing Organization Address City/State/ZIP [place] [address] (ABNORMAL) Cardiac Enzymes (LEB/CGP) (07/07/2017 5:15 AM EST) P athologist Signature Troponin-T 2.07 (H[facility]/mL [facility] [...] meets the diagnosis for a myocardial infarction (ND). Detection of a rise and/or fall of [...] additional sample may be indicated. Reference: Third [place] Definition of Myocardial Infarction. Journal of the [place] [employer] 2012;60:1581-98 CK, Total 88 0 - 200 unit/L [facility] LABORATORY Specimen Anatomical Collection Method Collection Time Receive d Time (Source) Location / / Volume Laterality Blood specimen 07/07/2017 5:15 AM 017 5:34 (specimen) EST AM EST Resulting Agency Comment Spec In Lab Daphne Shahid MD CHEMISTRY ORDERABLES Performing Organization Address City/State/ZIP Code Phon e Number [address] POCT Glucose (07/07/2017 5:01 AM EST) athologist Signature POC Glucose 182 65 - 199 [facility] mg/dL [facility] [...] Address City/State/ZIP Code Phon e Number [address] POCT Glucose (07/07/2017 4:08 AM EST) athologist Signature POC Glucose 199 65 - 199 [facility] [...] Address City/State/ZIP Code Phon e Number [address] POCT Glucose (07/07/2017 3:03 AM EST) athologist Signature POC Glucose 188 65 - 199 [facility] mg/dL [facility] LABORATORY Comment: Supplemental ranges: <140 mg/dL before meals <180 mg/dL all other times of the day Specimen Anatomical Collection Method Collection Time Receive d Time (Source) Location / / Volume Laterality Blood specimen 07/07/2017 3:03 AM 017 3:03 (specimen) EST AM EST Daphne Shahid MD POINT OF CARE TEST ORDERABLE S Performing Organization Address City/[facility]/ZIP [place] [address] (ABNORMAL) POCT Glucose (07/07/2017 2:08 AM EST) athologist Signature POC Glucose 200 (H) 65 - 199 [facility] mg/dL [facility] LABORATORY Comment: Supplemental ranges: <140 mg/dL before meals <180 mg/dL all other times of the day Specimen Anatomical Collection Method Collection Time Receive d Time (Source) Location / / Volume Laterality Blood specimen 07/07/2017 2:08 AM 017 2:08 (specimen) EST AM EST Daphne Shahid MD POINT OF CARE TEST ORDERABLE S Performing Organization Address City/[facility]/ZIP [place] [address] (ABNORMAL) POCT Glucose (07/07/2017 1:31 AM EST) athologist Signature POC Glucose 209 (H) 65 - 199 [facility] mg/dL [facility] LABORATORY Comment: Supplemental ranges: <140 mg/dL before meals <180 mg/dL all other times of the day Specimen Anatomical Collection Method Collection Time Receive d Time (Source) Location / / Volume Laterality Blood specimen 07/07/2017 1:31 AM 017 1:31 (specimen) EST AM EST Daphne Shahid MD POINT OF CARE TEST ORDERABLE S Performing Organization Address City/[facility]/Z[place] [address] XR Chest PA or [...] 161 65 - 199 [facility] mg/dL [facility], [...] Organization Address City/State/ZIP [place] [address] (ABNORMAL) APTT (07/07/2017 12:00 AM EST) athologist Signature PTT 103 (H) 25 - 35 sec [facility] LABORATORY Comment: The recommended therapeutic range for fu ll dose, unfractionated heparin at [facility] is 80 ? 114 seconds. The use [...] Address City/State/ZIP Code Phon e Number [address] POCT Glucose (07/06/2017 9:55 PM EST) athologist Signature POC Glucose 109 65 - 199 [place] mg/dL [facility], [...] TEST ORDERABLE S Performing Organization Address City/[facility]/ZIP Code Phon e Number [address] POCT Glucose (07/06/2017 9:04 PM EST) athologist Signature POC Glucose 120 65 - 199 [place] mg/dL [facility], [...] TEST ORDERABLE S Performing Organization Address City/[facility]/ZIP Code Phon e Number [address] POCT Glucose (07/06/2017 7:45 PM EST) athologist Signature POC Glucose 158 65 - 199 [place] mg/dL [facility], [...] TEST ORDERABLE S Performing Organization Address City/[facility]/Z[place] [address] Potassium (07/06/2017 7:40 PM EST) athologist Signature Potassium 3.9 3.5 - 5.0 [facility] mmol/L [facility] [...] MD CHEMISTRY ORDERABLES Performing Organization Address City/[facility]/[place] [address] (ABNORMAL) Cardiac Enzymes (LEB/CGP) (07/06/2017 7:40 PM EST) athologist Signature Troponin-T 2.27 (H) 0.00 - [place] 0.00 ng/mL [facility] [...] meets the diagnosis for a myocardial infarction (ND). Detection of a rise and/or fall of [...] additional sample may be indicated. Reference: Third [place] Definition of Myocardial Infarction. Journal of the [place] [employer] 2012;60:1581-98 CK, Total 93 0 - 200 unit/L [facility] LABORATORY Specimen Anatomical Collection Method Collection Time Receive d Time (Source) Location / / Volume Laterality Blood specimen 07/06/2017 7:40 PM 017 7:52 (specimen) EST PM EST Resulting Agency Comment Spec In Lab Daphne Shahid MD CHEMISTRY ORDERABLES Performing Organization Address City/[facility]/Z[place] [address] (ABNORMAL) POCT Glucose (07/06/2017 7:13 PM EST) P athologist Signature POC Glucose 200 (H) 65 - 199 [facility] mg/dL [facility], [...] TEST ORDERABLE S Performing Organization Address City/[facility]/[place] [address] (ABNORMAL) APTT (07/06/2017 6:15 PM EST) P athologist Signature PTT 94 (H) 25 - 35 sec [facility] LABOR[facility]ORY Comment: The recommended therapeutic range for fu ll dose, unfractionated heparin at [facility] is 80 ? 114 seconds. The use [...] MD HEMATOLOGY ORDERABLES Performing Organization Address City/[facility]/Z[place] [address] (ABNORMAL) POCT Glucose (07/06/2017 6:03 PM EST) athologist Signature POC Glucose 236 (H) 65 - 199 [place] mg/dL [facility], [...] TEST ORDERABLE S Performing Organization Address City/[facility]/[place] [address] (ABNORMAL) POCT Glucose (07/06/2017 5:01 PM EST) athologist Signature POC Glucose 235 (H) 65 - 199 [place] mg/dL [facility], [...] TEST ORDERABLE S Performing Organization Address City/[facility]/Z[place] [address] (ABNORMAL) POCT Glucose (07/06/2017 4:06 PM EST) athologist Signature POC Glucose 202 (H) 65 - 199 [place] mg/dL [facility], [...] Address City/State/ZIP Code Phon e Number [address] POCT Glucose (07/06/2017 2:59 PM EST) athologist Signature POC Glucose 178 65 - 199 [facility] mg/dL [facility] LABORATORY Comment: Supplemental ranges: <140 mg/dL before meals <180 mg/dL all other times of the day Specimen Anatomical Collection Method Collection Time Receive d Time (Source) Location / / Volume Laterality Blood specimen 07/06/2017 2:59 PM 017 2:59 (specimen) EST PM EST Daphne Shahid MD POINT OF CARE TEST ORDERABLE S Performing Organization Address City/[facility]/Z[place] [address] (ABNORMAL) Cardiac Enzymes (LEB/CGP) (07/06/2017 2:10 PM EST) athologist Signature Troponin-T 2.34 (H) 0.00 - [facility] 0.00 ng/mL [facility] [...] meets the diagnosis for a myocardial infarction (ND). Detection of a rise and/or fall of [...] additional sample may be indicated. Reference: Third [place] Definition of Myocardial Infarction. Journal of the [place] [employer] Cardiology 2012;60:1581-98 CK, Total 101 0 - 200 unit/L [facility] LABORATORY Specimen Anatomical Collection Method Collection Time Receive d Time (Source) Location / / Volume Laterality Blood specimen 07/06/2017 2:10 PM 017 2:26 (specimen) EST PM EST Resulting Agency Comment Spec In Lab Daphne Shahid MD CHEMISTRY ORDERABLES Performing Organization Address [facility] Phon e Number [address] POCT Glucose (07/06/2017 2:08 PM EST) P athologist Signature POC Glucose 192 65 - 199 [facility] mg/dL [facility], [...] TEST ORDERABLE S Performing Organization Address City/[facility]/Z[place] [address] POCT Glucose (07/06/2017 1:04 PM EST) P athologist Signature POC Glucose 162 65 - 199 [facility] mg/dL [facility] LABORATORY Comment: Supplemental ranges: <140 mg/dL before meals <180 mg/dL all other times of the day Specimen Anatomical Collection Method Collection Time Receive d Time (Source) Location / / Volume Laterality Blood specimen 07/06/2017 1:04 PM 017 1:04 (specimen) EST PM EST Daphne Shahid MD POINT OF CARE TEST ORDERABLE S Performing Organization Address City/[facility]/ZIP [place] [address] [facility] [address] POCT Glucose (07/06/2017 12:05 PM EST) P athologist Signature POC Glucose 196 65 - 199 [facility] mg/dL [facility] [...] TEST ORDERABLE S Performing Organization Address City/[facility]/ZIP Code Phon e Number [address] EKG 12 Lead (07/06/2017 12:00 PM EST) Component Value Ref Range Test Analysis Performed Pathologis t Method Time At Signature Ventricular rate 91 BPM MUSE SYSTEM Atrial Rate 91 BPM MUSE SYSTEM P-R Interval 140 ms MUSE SYSTEM QRS Duration 94 ms MUSE SYSTEM Q-T Interval 394 ms MUSE SYSTEM QTC Calculated 484 ms MUSE SYSTEM (Bezet) Calculated P [place] 36 degrees MUSE SYSTEM Calculated R [place] -19 degrees MUSE SYSTEM Calculated T [place] 104 degrees MUSE SYSTEM INTERPRETATION Normal sinus rhythm MUSE SYSTEM 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) ST & T wave abnormality, consider lateral ischemia Abnormal ECG When compared with ECG of 05-JUL-2017 20:39, No significant change was found Confirmed by MD Luci, Taurus Braun ([id number]) on 07/06/2017 5:07:33 PM Specimen Anatomical Collection [...] BLOOD BANK ORDERABLES Performing Organization Address City/[facility]/Z[place] [address] Antibody screen (07/06/2017 12:00 PM EST) Patholo gist Method Time Signature Ab Screen Negative [facility] LABORATORY Expires at 07/09/2017 [facility] [id number] on: [facility] LABORATORY Specimen Anatomical Collection Method Collection Time Receive d Time (Source) Location / / Volume Laterality Blood specimen 07/06/2017 12:00 7 (specimen) PM EST 12:24 PM EST Resulting Agency Comment Spec In Lab Daphne Shahid MD BLOOD BANK ORDERABLES Performing Organization Address City/[facility]/[place] [address] ABO/Rh Typing (07/06/2017 12:00 PM EST) P athologist Signature ABORh Type O Pos [facility] LABORATORY Specimen Anatomical Collection Method Collection Time Receive d Time (Source) Location / / Volume Laterality Blood specimen 07/06/2017 12:00 7 (specimen) PM EST 12:24 PM EST Resulting Agency Comment Spec In Lab Daphne Shahid MD BLOOD BANK ORDERABLES Performing Organization Address City/[facility]/ZIP [place] [address] Prothrombin Time (07/06/2017 11:24 AM EST) P athologist Signature PT 13.3 11.8 - 14.0 [facility] LABORATORY INR 1.0 0.9 - 1.1 [facility] [...] MD HEMATOLOGY ORDERABLES Performing Organization Address City/[facility]/ZIP Code Phon e Number [address] (ABNORMAL) APTT (07/06/2017 11:24 AM EST) P athologist Signature PTT 52 (H) 25 - 35 sec [facility] LABOR[facility] Comment: The recommended therapeutic range for fu ll dose, unfractionated heparin at [facility] is 80 ? 114 seconds. The use [...] MD HEMATOLOGY ORDERABLES Performing Organization Address City/[facility]/Z[place] [address] POCT Glucose (07/06/2017 11:02 AM EST) P athologist Signature POC Glucose 187 65 - 199 [facility] mg/dL [facility], [...] TEST ORDERABLE S Performing Organization Address City/[facility]/Z[place] [address] POCT Glucose (07/06/2017 10:18 AM EST) P athologist Signature POC Glucose 193 65 - 199 [place] mg/dL [facility], [...] Organization Address City/State/ZIP [place] [address] POCT Glucose (07/06/2017 9:25 AM EST) athologist Signature POC Glucose 182 65 - 199 [facility]dL [facility] [...] Organization Address City/State/Z[place] [address] (ABNORMAL) Cardiac Enzymes (LEB/CGP) (07/06/2017 8:10 AM EST) athologist Gust Troponin-T 2.26 (H) 0.00 - [place] 0.00 ng/mL [facility] [...] meets the diagnosis for a myocardial infarction (ND). Detection of a rise and/or fall of [...] additional sample may be indicated. Reference: Third [place] Definition of Myocardial Infarction. Journal of the [place] College [employer]iology 2012;60:1581-98 CK, Total 124 0 - 200 unit/L [facility] LABORATORY Specimen Anatomical Collection Method Collection Time Receive d Time (Source) Location / / Volume Laterality Blood specimen 07/06/2017 8:10 AM 017 8:23 (specimen) EST AM EST Resulting Agency Comment Spec In Lab Daphne Shahid MD CHEMISTRY ORDERABLES Performing Organization Address City/[facility]/ZIP Code Phon e Number [address] Magnesium (07/06/2017 8:10 AM EST) P athologist Signature Magnesium 0.84 0.69 - 1.07 [facility] mmol/L [facility] LABORATORY Specimen Anatomical Collection Method Collection Time Receive d Time (Source) Location / / Volume Laterality Blood specimen 07/06/2017 8:10 AM 017 8:21 (specimen) EST AM EST Resulting Agency Comment Spec In Lab Daphne Shahid MD CHEMISTRY ORDERABLES Performing Organization Address City/[facility] [place] [address] (ABNORMAL) Basic Metabolic Panel (non-fasting) (07/06/2017 8:10 AM EST) P athologist Signature Glucose Lvl 199 65 - 199 [facility] mg/dL [facility] [...] or in patients with acute kidney failure. [email or web address] [email or web address] Specimen Anatomical Collection Method Collection Time Receive d Time (Source) Location / / Volume Laterality Blood specimen 07/06/2017 8:10 AM 017 8:21 (specimen) EST AM EST Resulting Agency Comment Spec In Lab Daphne Shahid MD CHEMISTRY ORDERABLES Performing Organization Address City/[facility]/ZIP [place] [address] POCT Glucose (07/06/2017 7:34 AM EST) P athologist Signature POC Glucose 198 65 - 199 [facility] mg/dL [facility], [...] TEST ORDERABLE S Performing Organization Address City/[facility]/Z[place] [address] POCT Glucose (07/06/2017 7:03 AM EST) P athologist Signature POC Glucose 181 65 - 199 [place] mg/dL [facility] [...] Address City/State/ZIP Code Phon e Number [address] XR Chest PA or [...] Glucose 172 65 - 199 [facility] mg/dL [facility] [...] Organization Address City/State/ZIP [place] [address] POCT Glucose (07/06/2017 5:08 AM EST) athologist Signature POC Glucose 154 65 - 199 [facility] mg/dL [facility] [...] Organization Address City/State/ZIP [place] [address] POCT Glucose (07/06/2017 4:05 AM EST) athologist Signature POC Glucose 142 65 - 199 [facility] mg/dL [facility] LABORATORY Comment: Supplemental ranges: <140 mg/dL before meals <180 mg/dL all other times of the day Specimen Anatomical Collection Method Collection Time Receive d Time (Source) Location / / Volume Laterality Blood specimen 07/06/2017 4:05 AM 017 4:05 (specimen) EST AM EST Daphne Shahid MD POINT OF CARE TEST ORDERABLE S Performing Organization Address City/[facility]/ZIP Code Phon e Number [address] POCT Glucose (07/06/2017 3:00 AM EST) athologist [facility] POC Glucose 116 65 - 199 [facility] mg/dL [facility], [...] TEST ORDERABLE S Performing Organization Address City/[facility]/ZIP Code Phon e Number [address] Potassium (07/06/2017 2:20 AM EST) athologist [facility] Potassium 3.9 3.5 - 5.0 [facility] mmol/L [facility] [...] MD CHEMISTRY ORDERABLES Performing Organization Address City/[facility]/ZIP Code Phon e Number [address] Differential, Automated (07/06/2017 2:20 AM EST) athologist [facility] Neutrophils % 72.9 % [facility] LABORATORY Neutr Abs (ANC) 5.53 1.70 - [facility] 6.10 [facility] x10(3)/[facility] LABORATORY Lymphocytes % 16.4 % [facility] LABORATORY Lymphocytes Abs 1.2 0.9 - 3.2 [facility] x10(3)/[facility] LABORATORY Monocytes % 9.4 % [facility] LABORATORY Monocyte Abs 0.7 0.3 - 0.9 [facility] x10(3)/[facility] LABORATORY Eosinophils % 0.5 % [facility] LABORATORY Eosinophils Abs 0.0 0.0 - 0.4 [facility] x10(3)/[facility] LABORATORY Basophils % 0.4 % [facility] LABORATORY Basophils Abs 0.0 0.0 - 0.1 [facility] x10(3)/[facility] LABORATORY Immature Gran % 0.40 % [...] x10(3)/[facility] LABORATORY Specimen Anatomical Collection Method Collection Time Receive d Time (Source) Location / / Volume Laterality Blood specimen 07/06/2017 2:20 AM 017 2:33 (specimen) EST AM EST Resulting Agency Comment Spec In Lab Daphne Shahid MD HEMATOLOGY ORDERABLES Performing Organization Address City/State/ZIP [place] [address] (ABNORMAL) Hemogram (07/06/2017 2:20 AM EST) Analysis Performed At Patho logist Time Signature WBC 7.6 4.0 - 9.5 [facility] x10(3)/[facility] LABORATORY RBC 4.52 (L) 4.58 - [facility] 5.54 [facility] x10(6)/[facility] LABORATORY Hemoglobin 13.4 (L) 13.7 - [place] 16.5 gm/dL [facility] LABORATORY Hematocrit 39.7 (L) 40.5 - [place] 48.5 % [facility] LABORATORY MCV 87.8 82.9 - [facility] [place] 93.1 [facility] LABORATORY MCH 29.6 27.5 - [place] 32.1 pg [facility] LABORATORY MCHC 33.8 32.0 - [place] 35.7 gm/dL [facility] LABORATORY Platelets 189 145 - 357 [facility] x10(3)/[facility] LABORATORY RDWSD 45.6 (H) 36.0 - [facility] 45.0 [facility] LABORATORY RDWCV 14.3 (H) 11.4 - [facility] R[place]AN 13.8 % [facility] LABORATORY MPV 9.1 7.6 - 12.9 [facility] LABORATORY nRBC % Auto 0.0 % [facility] LABORATORY nRBC Abs Auto 0.000 0.000 - [facility] [place]AN 0.000 [facility] x10(3)/[facility] LABORATORY Specimen Anatomical Collection Method Collection Time Receive d Time (Source) Location / / Volume Laterality Blood specimen 07/06/2017 2:20 AM 017 2:33 (specimen) EST AM EST Resulting Agency Comment Spec In Lab Daphne Shahid MD HEMATOLOGY ORDERABLES Performing Organization Address City/State/ZIP [place] [address] (ABNORMAL) APTT (07/06/2017 2:20 AM EST) P athologist Signature PTT 52 (H) 25 - 35 sec [facility] LABORATORY Comment: The recommended therapeutic range for fu ll dose, unfractionated heparin at [facility] is 80 ? 114 seconds. The use [...] Address City/State/ZIP Code Phon e Number [address] POCT Glucose (07/06/2017 2:20 AM EST) athologist Signature POC Glucose 115 65 - 199 [facility]/dL [facility] [...] Organization Address City/State/ZIP [place] [address] (ABNORMAL) Cardiac Enzymes (LEB/CGP) (07/06/2017 2:20 AM EST) athologist Signature Troponin-T 2.13 (H) 0.00 - [place] 0.00 ng/mL [facility] [...] meets the diagnosis for a myocardial infarction (ND). Detection of a rise and/or fall of [...] additional sample may be indicated. Reference: Third [place] Definition of Myocardial Infarction. Journal of the [place] College of Cardiology 2012;60:1581-98 CK, Total 129 0 - 200 unit/L [facility] LABORATORY Specimen Anatomical Collection Method Collection Time Receive d Time (Source) Location / / Volume Laterality Blood specimen 07/06/2017 2:20 AM 017 2:33 (specimen) EST AM EST Resulting Agency Comment Spec In Lab Daphne Shahid MD CHEMISTRY ORDERABLES Performing Organization Address City/State/ZIP [place] [address] (ABNORMAL) Hemoglobin A1c (07/06/2017 [...] into estimated average glucose values. ??Diabetes Care 2008:31(8):4243-1797. Specimen Anatomical Collection Method Collection Time Receive d Time (Source) Location / / Volume Laterality Blood specimen 07/06/2017 2:20 AM 017 2:34 (specimen) EST AM EST Resulting Agency Comment Spec In Lab Daphne Shahid MD CHEMISTRY ORDERABLES Performing Organization Address City/State/ZIP [place] [address] (ABNORMAL) Lipid Panel (07/06/2017 2:20 AM EST) [facility] Method Time Signature Chol, Total 150 <=239 [place] mg/dL [facility] LABORATORY Triglycerides 129 <=199 [facility] mg/dL [facility] LABORATORY HDL 32 (L) >=40 [facility] mg/dL [facility] LABORATORY LDL Cholesterol 92 <=190 [place] mg/dL [facility] LABORATORY Chol/HDL Ratio 4.7 ratio [facility] LABORATORY Lipid See Note [place] Interpretation [facility] LABORATORY Comment: Lipid management should be guided by a p atient? s ASCVD risk, goals and preferences. ACC/AHA Guidelines recommend high intens ity statin if clinical ASCVD or LDL greater than or equal to 190 mg/dL. http://tinyurl.com/CZI-SKB-Wlwkzhjzv Adults aged 40-75 with LDL 70-189 mg/dL should have their 10 year ASCVD risk estimated with the ACC/AHA ASCVD risk es timator http://tools.acc.org/UWAKQ-Ictd-Phtskjbx r/ Statin should be discussed if risk [...] MD CHEMISTRY ORDERABLES Performing Organization Address City/[facility]/ZIP Code Phon e Number [address] POCT Glucose (07/06/2017 1:09 AM EST) athologist Signature POC Glucose 121 65 - 199 [facility] mg/dL [facility] LABORATORY Comment: Supplemental ranges: <140 mg/dL before meals <180 mg/dL all other times of the day Specimen Anatomical Collection Method Collection Time Receive d Time (Source) Location / / Volume Laterality Blood specimen 07/06/2017 1:09 AM 017 1:09 (specimen) EST AM EST Daphne Shahid MD POINT OF CARE TEST ORDERABLE S Performing Organization Address City/[facility]/ZIP [place] [address] POCT Glucose (07/06/2017 12:06 AM EST) athologist Signature POC Glucose 147 65 - 199 [facility] [place] mg/dL [facility], [...] Organization Address City/State/ZIP [place] [address] (ABNORMAL) POCT Glucose (07/05/2017 10:56 PM EST) athologist Signature POC Glucose 200 (H) 65 - 199 [facility] mg/dL [facility] [...] Organization Address City/State/[place] [address] (ABNORMAL) POCT Glucose (07/05/2017 10:05 PM EST) athologist Signature POC Glucose 225 (H) 65 - 199 [facility] mg/dL [facility] [...] Organization Address City/State/[place] [address] (ABNORMAL) POCT Glucose (07/05/2017 9:02 PM EST) athologist Signature POC Glucose 301 (H) 65 - 199 [facility] mg/dL [facility] [...] Organization Address City/State/[place] [address] XR Chest PA or [...] 474 ms MUSE SYSTEM (Bezet) Calculated P [place] 50 degrees MUSE SYSTEM Calculated R [place] -28 degrees MUSE SYSTEM Calculated T [place] 90 degrees MUSE SYSTEM INTERPRETATION Sinus tachycardia [...] (ABNORMAL) Differential, Automated (07/05/2017 8:20 PM EST) [facility] gist Method Time Signature Neutrophils % 88.4 % [facility] LABORATORY Neutr Abs (ANC) 9.08 (H) 1.70 - [facility] 6.10 [facility] x10(3)/[facility] LABORATORY Lymphocytes % 7.0 % [facility] LABORATORY Lymphocytes Abs 0.7 (L) 0.9 - 3.2 [facility] x10(3)/[facility] LABORATORY Monocytes % 3.7 % [facility] LABORATORY Monocyte Abs 0.4 0.3 - 0.9 [facility] x10(3)/[facility] LABORATORY Eosinophils % 0.1 % [facility] LABORATORY Eosinophils Abs 0.0 0.0 - 0.4 [facility] x10(3)/[facility] LABORATORY Basophils % 0.2 % [facility] LABORATORY Basophils Abs 0.0 0.0 - 0.1 [facility] x10(3)/[facility] LABORATORY Immature Gran [...] 0.00 - 0.04 x10(3)/[facility] LABORATORY Specimen Anatomical Collection Method Collection Time Receive d Time (Source) Location / / Volume Laterality Blood specimen 07/05/2017 8:20 PM 017 8:27 (specimen) EST PM EST Resulting Agency Comment Spec In Lab Daphne Shahid MD HEMATOLOGY ORDERABLES Performing Organization Address City/State/ZIP [place] [address] (ABNORMAL) Hemogram (07/05/2017 8:20 PM EST) Analysis Performed At Patho logist Time Signature WBC 10.3 (H) 4.0 - 9.5 [facility] [place] x10(3)/[facility] LABORATORY RBC 4.64 4.58 - [place] 5.54 [facility] x10(6)/[facility] LABORATORY Hemoglobin 14.1 13.7 - [place] 16.5 gm/dL [facility] LABORATORY Hematocrit 40.8 40.5 - [facility] [place] 48.5 % [facility] LABORATORY MCV 87.9 82.9 - [facility] [place] 93.1 [facility] LABORATORY MCH 30.4 27.5 - [place] 32.1 pg [facility] LABORATORY MCHC 34.6 32.0 - [facility] [place] 35.7 gm/dL [facility] LABORATORY Platelets 204 145 - 357 [facility] x10(3)/[facility] LABORATORY RDWSD 46.1 (H) 36.0 - [facility] [place] 45.0 [facility] LABORATORY RDWCV 14.5 (H) 11.4 - [facility] [place] 13.8 % [facility] LABORATORY MPV 9.7 7.6 - 12.9 [facility] LAB[facility]ATORY nRBC % Auto 0.0 % [facility] LABORATORY nRBC Abs Auto 0.000 0.000 - [facility] [place] 0.000 [facility] x10(3)/[facility] LABORATORY Specimen Anatomical Collection Method Collection Time Receive d Time (Source) Location / / Volume Laterality Blood specimen 07/05/2017 8:20 PM 017 8:27 (specimen) EST PM EST Resulting Agency Comment Spec In Lab Daphne Shahid MD HEMATOLOGY ORDERABLES Performing Organization Address City/State/ZIP Code Phon e Number [place] [address] APTT (07/05/2017 8:20 PM EST) athologist Signature PTT 32 25 - 35 sec [facility] LABORATORY Comment: The recommended therapeutic range for fu ll dose, unfractionated heparin at [facility] is 80 ? 114 seconds. The use [...] Organization Address City/State/ZIP [place] [address] (ABNORMAL) Cardiac Enzymes (LEB/CGP) (07/05/2017 8:20 PM EST) athologist [facility] Troponin-T 2.11 (H) 0.00 - [facility] 0.00 ng/mL [facility], [...] meets the diagnosis for a myocardial infarction (ND). Detection of a rise and/or fall of [...] additional sample may be indicated. Reference: Third [place] Definition of Myocardial Infarction. Journal of the [place] College of Cardiology 2012;60:1581-98 CK, Total 149 0 - 200 unit/L [facility] LABORATORY Specimen Anatomical Collection Method Collection Time Receive d Time (Source) Location / / Volume Laterality Blood specimen 07/05/2017 8:20 PM 017 8:27 (specimen) EST PM EST Resulting Agency Comment Spec In Lab Daphne Shahid MD CHEMISTRY ORDERABLES Performing Organization Address City/[facility]/ZIP [facility] [place] [address] (ABNORMAL) Magnesium (07/05/2017 8:20 PM EST) P athologist Signature Magnesium 0.68 (L) 0.69 - 1.07 [facility] mmol/L [facility] LABORATORY Specimen Anatomical Collection Method Collection Time Receive d Time (Source) Location / / Volume Laterality Blood specimen 07/05/2017 8:20 PM 017 8:27 (specimen) EST PM EST Resulting Agency Comment Spec In Lab Daphne Shahid MD CHEMISTRY ORDERABLES Performing Organization Address City/[facility]/ZIP [place] [address] (ABNORMAL) Basic Metabolic Panel (non-fasting) (07/05/2017 8:20 PM EST) P athologist Signature Glucose Lvl 321 (H) 65 - 199 [facility] mg/dL [facility] [...] or in patients with acute kidney failure. http://[employer]/DHnkdep http://[employer]/DHMCnkf Specimen Anatomical Collection Method Collection Time Receive d Time (Source) Location / / Volume Laterality Blood specimen 07/05/2017 8:20 PM 017 8:27 (specimen) EST PM EST Resulting Agency Comment Spec In Lab Daphne Shahid MD CHEMISTRY ORDERABLES Performing Organization Address City/State/ZIP [place] [address] (ABNORMAL) POCT Glucose (07/05/2017 7:32 PM EST) P athologist Signature POC Glucose 296 (H) 65 - 199 [facility] mg/dL [facility], [...] Organization Address City/State/[place] [address] CARDIAC CATHETERIZATION (07/05/2017 6:47 PM EST) Anatomical Region Laterality Modality Other Specimen (Source) Anatomical Location Collection Method / Collectio n Time Received Time / Laterality Volume Narrative 07/05/2017 7:27 PM EST ?[facility] ? Cardiac Cathete rization/Intervention Report ? Patient Name: Gregory Hoang ? Procedure Date: 07/05/2017 ? A #: [id number] ? Primary Physician: Clarisa, Jet T ? Case #: [id number] ? File Name: [id number] ? Catheterization Order Number: [id number] ? [facility] ?Dining [facility] ? Final Report [place], [place] ? Patient Name: ? Gregory Natalya ?ID#: ?[id number] ? : ?1945 ? Procedure Date: ? [...] presented with: non -STEMI (w/i 7 days). [place] ?[employer]iovascular Society angina c lass was IV. [...] IABP placement. ?The attending physician was linda t for the entire procedure. ?Dr. Jet Mckenna M.D. was pres ent during the moderate sedation ?intraservice time as documented by the sedation nurse. ??Case time = 00:42. ?Dr. Jet Mckenna M.D. performe d the coronary angiography, left heart ?catheterization, access site angio graphy and IABP insertion in catholic priest. ? Jet Mckenna M.D. ? Electronically Signed by: Jet bunch M.D. ? Report Finalized: 07/05/2017 ??19:23 ? Report Last Ammended: 10/26/2017 ??10:29 ? Procedure Note Jet Mckenna MD - 10/26/2017Formatt ing of this note might be different from the original. [facility] Cardiac Catheterization/Intervention Re port Patient Name: Gregory Hoang Procedure Date: 07/05/2017 A #: [id number] Primary Physician: Jet Mckenna Case #: [id number] File Name: [id number] Catheterization Order Number: [id number] [facility] Dining Room Host[facility] Final Report [place], [place] Patient Name: Gregory Hoang ID#: [id number] : 1945 Procedure Date: July 05, [...] presented with: non-STEMI ( w/i 7 days). [place] [employer] angina class was IV. No [...] site angiograph y and IABP insertion in catholic priest. Jet Mckenna M.D. Electronically Signed by: Jet [...] Mccollum ? (Age): 1945(72y) Med Rec#: ? [id number] ?Sex: ?M ? Site Loc: ? [facility] ?Ht / Wt: ??173(cm)/86(kg) Pt. Loc: ?CCU ? BSA: ?2 Study Date: ?? 07/05/2017 ?Pt. Type: Inpatient Tape: ? Referring: Daphne Shahid ([id number]) Referring: MANDA ALCANTAR Reading: Blade Preston ([id number]) Steel Placer: Dayami Paula BA, [facility] Diagnosis: [...] E-wave Vmax ?0.8 ?m/sec ? MV deceleration [id number] ?msec ? MV A-wave Vmax ?0.8 ?m/sec [...] ? Mid-Inferior ?Akinetic ? Mid-Inferoseptal ?Hypokinetic ? [place]-Septal ? Akinetic ? [place]-Anterior ? Hypokinetic ? [place]-Lateral ?Hypokinetic ? [place]-Inferior ? Akinetic ? [place]-Tip ?Akinetic ? This report has been electronically sign ed by: _ Blade Preston MD ? 07/06/2017 08 :53:15 Images reviewed and interpretation [facility] Cardiac Ultrasound Laboratory Procedure Note Blade Preston MD - 07/06/2017Formatt ing of this note might be different from the original. Procedure: Transthoracic Echocardiogram Patient: NATALYA MCBRIDE(Age): [birth year]72y) Med Rec#: [id number] Sex: M Site Loc: [facility] Ht / Wt: 173(cm)/86(kg) Pt. Loc: CCU BSA: 2 Study Date: 07/05/2017 Pt. Type: Inpatie nt Tape: Referring: Daphne Shahid ([id number]) Referring: MANDA ALCANTAR Reading: Blade Preston ([id number]) Steel Placer: Dayami Paula BA, [facility] Diagnosis: [...] MV E-wave Vmax 0.8 m/sec MV deceleration [id number] msec MV A-wave Vmax 0.8 m/sec MV [...] Hypokinetic Mid-Posterolateral Hypokinetic Mid-Inferior Akinetic Mid-Inferoseptal Hypokinetic [place]-Septal Akinetic [place]-Anterior Hypokinetic [place]-Lateral Hypokinetic [place]-Inferior Akinetic [place]-Tip Akinetic This report has been electronically sign ed by: _ Blade Preston MD 07/06/2017 08:53:15 Images reviewed and interpretation ver ied [facility] Cardiac Ultrasound Laboratory Daphne Shahid MD ECHO ORDERABLES Differential, Automated (07/05/2017 4:55 PM EST) athologist Signature Neutrophils % 77.0 % [facility] LABORATORY Neutr Abs (ANC) 5.26 1.70 - [facility] 6.10 [facility] x10(3)/[facility] LABORATORY Lymphocytes % 13.3 % [facility] LABORATORY Lymphocytes Abs 0.9 0.9 - 3.2 [facility] x10(3)/[facility] LABORATORY Monocytes % 8.2 % [facility] LABORATORY Monocyte Abs 0.6 0.3 - 0.9 [facility] x10(3)/[facility] LABORATORY Eosinophils % 0.7 % [facility] LABORATORY Eosinophils Abs 0.0 0.0 - 0.4 [facility] x10(3)/[facility] LABORATORY Basophils % 0.4 % [facility] LABORATORY Basophils Abs 0.0 0.0 - 0.1 [facility] x10(3)/[facility] LABORATORY Immature Gran % 0.40 % [...] x10(3)/[facility] LABORATORY Specimen Anatomical Collection Method Collection Time Receive d Time (Source) Location / / Volume Laterality Blood specimen 07/05/2017 4:55 PM 017 5:24 (specimen) EST PM EST Resulting Agency Comment Spec In Lab Daphne Shahid MD HEMATOLOGY ORDERABLES Performing Organization Address City/State/ZIP [place] [address] (ABNORMAL) Hemogram (07/05/2017 4:55 PM EST) Analysis Performed At Patho logist Time Signature WBC 6.8 4.0 - 9.5 [facility] x10(3)/[facility] LABORATORY RBC 4.67 4.58 - [facility] 5.54 [facility] x10(6)/[facility] LABORATORY Hemoglobin 14.0 13.7 - [place] 16.5 gm/dL [facility] LABORATORY Hematocrit 41.0 40.5 - [place] 48.5 % [facility] LABORATORY MCV 87.8 82.9 - [facility] 93.1 [facility] LABORATORY MCH 30.0 27.5 - [place] 32.1 pg [facility] LABORATORY MCHC 34.1 32.0 - [place] 35.7 gm/dL [facility] LABORATORY Platelets 197 145 - 357 [facility] x10(3)/[facility] LABORATORY RDWSD 46.4 (H) 36.0 - [place] 45.0 [facility] LABORATORY RDWCV 14.5 (H) 11.4 - [place] 13.8 % [facility] LABORATORY MPV 9.7 7.6 - 12.[facility] LABORATORY nRBC % Auto 0.0 % [facility] LABORATORY nRBC Abs Auto 0.000 0.000 - [place] 0.000 [facility] x10(3)/[facility] LABORATORY Specimen Anatomical Collection Method Collection Time Receive d Time (Source) Location / / Volume Laterality Blood specimen 07/05/2017 4:55 PM 017 5:24 (specimen) EST PM EST Resulting Agency Comment Spec In Lab Daphne Shahid MD HEMATOLOGY ORDERABLES Performing Organization Address City/State/ZIP [place] [address] (ABNORMAL) Cardiac Enzymes (LEB/CGP) (07/05/2017 4:55 PM EST) P athologist Signature Troponin-T 1.69 (H) 0.00 - [place] 0.00 ng/mL [facility] [...] meets the diagnosis for a myocardial infarction (ND). Detection of a rise and/or fall of [...] additional sample may be indicated. Reference: Third [place] Definition of Myocardial Infarction. Journal of the [place] College [employer]iology 2012;60:1581-98 CK, Total 191 0 - 200 unit/L [facility] LABORATORY Specimen Anatomical Collection Method Collection Time Receive d Time (Source) Location / / Volume Laterality Blood specimen 07/05/2017 4:55 PM 017 5:56 (specimen) EST PM EST Resulting Agency Comment Spec In Lab Daphne Shahid MD CHEMISTRY ORDERABLES Performing Organization Address City/[facility]/ZIP [place] [address] (ABNORMAL) pro-Brain Natriuretic Peptide (07/05/2017 4:55 PM EST) P athologist Signature ProBNP 1,598 (H) <=125 [facility]/mL [facility] LABORATORY Specimen Anatomical Collection Method Collection Time Receive d Time (Source) Location / / Volume Laterality Blood specimen 07/05/2017 4:55 PM 017 5:24 (specimen) EST PM EST Resulting Agency Comment Spec In Lab Daphne Shahid MD CHEMISTRY ORDERABLES Performing Organization Address City/State/[place] [address] Magnesium (07/05/2017 4:55 PM EST) P athologist Signature Magnesium 0.78 0.69 - 1.07 [facility] mmol/L [facility] Specimen Anatomical Collection Method Collection Time Receive d Time (Source) Location / / Volume Laterality Blood specimen 07/05/2017 4:55 PM 017 5:24 (specimen) EST PM EST Resulting Agency Comment Spec In Lab Daphne Shahid MD CHEMISTRY ORDERABLES Performing Organization Address City/State/Z[place] [address] (ABNORMAL) Basic Metabolic Panel (non-fasting) (07/05/2017 4:55 PM EST) P athologist Signature Glucose Lvl 230 (H) 65 - 199 [facility] mg/dL [facility] [...] or in patients with acute kidney failure. [email or web address] Specimen Anatomical Collection Method Collection Time Receive d Time (Source) Location / / Volume Laterality Blood specimen 07/05/2017 4:55 PM 017 5:24 (specimen) EST PM EST Resulting Agency Comment Spec In Lab Daphne Shahid MD CHEMISTRY ORDERABLES Performing Organization Address City/[facility]/[place]IP [place] [address] (ABNORMAL) APTT (07/05/2017 4:55 PM EST) P athologist Signature PTT 41 (H) 25 - 35 sec [facility] Comment: The recommended therapeutic range for fu ll dose, unfractionated heparin at [facility] is 80 ? 114 seconds. The use [...] MD HEMATOLOGY ORDERABLES Performing Organization Address City/[facility]/[place]IP [place] [address] (ABNORMAL) POCT Glucose (07/05/2017 4:53 PM EST) athologist Signature POC Glucose 208 (H) 65 - 199 [facility] mg/dL [facility] [...] TEST ORDERABLE S Performing Organization Address City/[facility]/[place]IP [place] [address] EKG 12 Lead (07/05/2017 4:32 PM EST) Component Value Ref Range Test Analysis Performed Pathologis t Method Time At Signature Ventricular rate 97 BPM MUSE SYSTEM Atrial Rate 97 BPM MUSE SYSTEM P-R Interval 148 ms MUSE SYSTEM QRS Duration 96 ms MUSE SYSTEM Q-T Interval 364 ms MUSE SYSTEM QTC Calculated 462 ms MUSE SYSTEM (Bezet) Calculated P [place] 48 degrees MUSE SYSTEM Calculated R [place] -33 degrees MUSE SYSTEM Calculated T [place] 98 degrees MUSE SYSTEM INTERPRETATION Normal sinus [...] Coronary atherosclerosis of unspecified type of vessel, [place] or graft Cardiomyopathy, ischemic Other specified forms [...] post-op day 1 in the AM Give LA if unable to take PO, Routine Given [...] dose on Wed07/07/17 at 2100, Until Discontinued, [place] teeth, Routine Given 07/08/2017 10:06 PM EST [...] or norepinephrine is ineffective. Call pager # [phone] if initiated. Rate/Dose Change 07/08/2017 7:01 PM [...] if phenyleprine and/or vasopressin ineffective.Call pager # [phone] if initiated., Routine Rate/Dose Change 07/09/2017 1:24 [...] 2.0 L/min/M2. Maximum volume 2 L. Call research greenhouse supervisor for additional fluid orders: pager #[phone]. Rate/Dose Verify 07/08/2017 4:00 AM EST 100 [...] post-op day 1 in the AM Give LA if unable to take PO, Routine atorvastatin [...] Contraindicated) 0000 (Not Given - Provider: Ale M Lindq uist, RN - Reason: Order parameters not met)0400 [...] post-op day 1 in the AM Give LA if unable to take PO
Routine Group [...]
Routine documented in this encounter Care Teams Brand Marketing Intern Relationship Specialty Start Date End Date Lovely Vicente MD PCP - General 04/16/[address] [place] [address] documented as of this encounter
--- OUTSIDE RECORDS SUMMARY | 2022-04-15 08:25 | XMS_ITS | Encounter Summary ---
:1945 Author Organization [facility] Address [facility] [place] [address] Care Team Providers Name Role Phone Lovely Vicente MD Primary Care Provider Reason for Visit Auth/Cert Specialty Diagnoses / Procedures Referred By Contact Refer red To Contact Diagnoses STEMI (ST elevation myocardial infarction) NSTEMI STEMI Procedures CARDIAC CATHETERIZATION NAYE IPI Referral ID Status Reason Start Date Expiration Date Visits Requ ested Visits Authorized [id number] 1 1 Encounter Details Date Type Department Care Team Description 07/07/2017 Surgery Main Operating Room Yuan Webbre, @ CABG, USING ARTERIAL Barbara Ocampo MD GRAFT;SINGLE ARTERIAL Hospital [facility] GRAFT (WRVU 33.75) [facility] [address] [place] [address] SURGERY [phone] [place], [place] [address] (Wo rk) Social History Tobacco [...] in this encounter Discharge Summaries Martha Teague, MILITARY PILOT - 07/14/2017 9:38 AM EST Inpatient - Discharge Summary Patient Name: Gregory Hoang Patient Age: 72 y.o. Birthdate: 1945 Language: Cypriot Race: White Ethnicity: Not nor Admit Date: [...] , @ 1:20p Patient to follow-up with Home Care Attendant/heart failure team in one week. An appointment will be made for you. You may call [phone] Patient to follow-up with Cardiac Surgery, Dr. Yuan Webber, in ~ 4 weeks with CXR, EKG. Inpatient Provider Contact Information: [facility] Section of Cardiac Surgery [facility] [address] FAX [phone] Discharge Diagnoses (Hospital Problems) Primary Diagnoses: CAD [...] SETUP performed by Manny Mcknight MD at [facility] OR ??? PRO CABG, ARTERIAL, SINGLE N/A 07/07/2017 @CABG, USING ARTERIAL GRAFT;SINGLE ARTERIAL GRAFT (WRVU 33.75) performed by Yuan Webber MD at [facility] OR ??? PRO CABG, ARTERY-VEIN, TWO N/A 07/07/2017 @CABG, TWO VENOUS GRAFTS & ARTERIAL GRAFT (WRVU 7.93) performed by Yuan Webber MD at [facility] OR ??? PRO COLONOSCOPY, REMV LESN, SNARE 01/16/2014 COLONOSCOPY, POLYPECTOMY, REMOVAL LESION BY SNARE performed by Nohemi Jaimes MD at [facility] ENDOSCOPY ??? PRO ENDOSCOPY W/VIDEO-ASST VEIN HARVEST, CABG Right 07/07/2017 ENDOSCOPIC HARVEST VEIN(S) FOR CABG (WRVU 0.31) performed by Yuan Webber MD at [facility] OR ??? PRO THYROIDECTOMY 03/28/2013 THYROIDECTOMY, TOTAL OR COMPLETE performed by Manny cMknight MD at [facility] OR Prior To Admission Medications Prescriptions Prior to Admission Medication Sig Dispense Refill Last Dose ??? levothyroxine (SYNTHROID) 175 mcg Tablet Take 1 tablet by mouth daily. 90 tablet 3 07/05/2017 [id number] ??? ascorbic acid, vitamin C, (VITAMIN C) [...] Hospital Course: Gregory Hoang was admitted to [facility] on 07/05/2017 via the Cardiology Service. During his hospital course, he was taken emergently to the manager lab for an ongoing STEMI. An IABP was [...] not take or discontinue any prescription or bksj-idx-irplpsa medications without asking your doctor or pharmacist [...] Yuan Webber and/or the Cardiac Surgery Physician Sheriffs Detective Team may be reached at . Weight: [...] Dr. Yuan Webber. You may use a Ophiem Track or treadmill but avoid any pulling [...] friends, go to a movie, go to christianity, etc. Heavy activities: No hunting, skiing, jogging, snow shoveling, snowmobiling, lawn mowing, swimming, golf or tennis until after your return appointment with the surgeon. Do not ride motorcycles, Jigsaw's tractors or horses. Avoid the use of [...] , @ 1:20p Patient to follow-up with Home Care Attendant/heart failure team in one week. Appointment will be made for you. You may call [phone] Patient to follow-up with Cardiac Surgery, Dr. [...] LAB, THREE L Lab 3L [facility] [phone] 09/07/2017 4:00 PM Luz Prescott MD Endocrinology at [place] [phone] Future Orders Complete By Expires EKG 12 Lead [EKG1 Custom] 08/14/2017 02/13/2018 Process Instructions: Scheduling Instructions: Questions: Which DH location will this be performed?: [place] Is a rhythm strip needed?: No If EKG Reason is Pre-op Evaluation, indicate diagnosis for surgery.: XR Chest PA & Lateral (Generic) [33076 [id number] Custom] 08/14/2017 02/13/2018 Process Instructions: Scheduling Instructions: Questions: Where will study be performed?: [place] [facility] Portable exam?: Reason for exam and clinical history: CABG x 3 Other pertinent information: Stat read required?: Date of injury if applicable: Requested Time: Referral to Cardiac Rehab [[id number] Custom] As directed Process Instructions: If no progress note charted, please enter Clinical details in comments. Scheduling Instructions: Questions: My question or request is: s/p CABG. Cardiac rehab at [facility] Referral to Home Health - at DISCHARGE [RWG8950 CPT(R)] As directed Process Instructions: Scheduling Instructions: Comments: DOCUMENTATION FOR VNA SERVICES (INCLUDING THOSE PATIENTS WITH MEDICARE COVERAGE REQUIRING HOME VNA SERVICES AND/OR HOSPICE SERVICES) PATIENT'S LOCATION: Gregory Hoang [address] [place] [address] [place] [id number] (home) Telephone Information: Assistant Controller's Name: self In discussion with the attending physician, it is certified that this patient is under their care and that they, or a Nurse Practitioner, or Physician Sheriffs Detective who is working directly with them, had [...] Mung[facility] ([facility] [place] [employer]-is in [place]) PHONE: [phone] FAX: [phone] RN orders: Cardiopulmonary assessment, incisional assessment, assess vital signs, assessment of rehab progress, medication management and effectiveness, home safety evaluation. Please draw INR if indicated and send result to:Dr Vicente [phone] PT ORDERS: Continue rehab for endurance, gait stability and strength with mobility and transfers. Home safety evaluation. Home exercise program if appropriate. Start of Care Date:24-48 hours after discharge SPECIAL INSTRUCTIONS: For any follow up questions, needs, or issues please call the Cardiac Surgery Office at [phone] FOR MEDICARE ONLY: (please delete this section [...] noted. Questions: Agency name and contact information: [facility] Patient location post discharge: home What services are requested: Registered Nurse Physical Therapy Start date: Responsible MD post discharge contact info: PCP Arrangements for VNA/home care: As above. VN RN OR PCP TO PLEASE REMOVE CHEST TUBE SUTURES ON OR AFTER 07/17/2017 Signed: Martha Teague APRN [facility] Section of Cardiac Surgery [facility] [address] FAX [phone] Date: 07/14/2017 CC: MD Ivania Cr Betsy, [place] [address] [place] [phone] documented in this encounter Discharge Instructions Discharge [...] not take or discontinue any prescription or xvym-dqx-sidbxqb medications without asking your doctor or pharmacist [...] Yuan Webber and/or the Cardiac Surgery Physician Sheriffs Detective Team may be reached at . ?? [...] Dr. Yuan Webber. You may use a Ophiem Track or treadmill but avoid any pulling [...] friends, go to a movie, go to christianity, etc. ?? Heavy activities: No hunting, skiing, jogging, snow shoveling, snowmobiling, lawn mowing, swimming, golf or tennis until after your return appointment with the surgeon. Do not ride motorcycles, Jigsaw's tractors or horses. Avoid the use of [...] @ 1:20p ?? Patient to follow-up with Home Care Attendant/heart failure team in one week. An appointment has been made for you, you can call [phone] ?? Patient to follow-up with Cardiac Surgery, [...] LAB, THREE L Lab 3L [facility] [phone] ?? 09/07/2017 4:00 PM Luz Prescott MD Endocrinology at [place] [phone] Future Orders Complete By Expires ?? EKG 12 Lead [EKG1 Custom] 08/14/2017 02/13/2018 ?? Process Instructions: ? Scheduling Instructions: ? Questions: ? Which location will this be performed?: [place] ?? Is a rhythm strip needed?: No ?? If EKG Reason is Pre-op Evaluation, indicate diagnosis for surgery.: ?? XR Chest PA & Lateral (Generic) [[id number] Custom] 08/14/2017 02/13/2018 ?? Process Instructions: ? Scheduling Instructions: ? Questions: ? Where will study be performed?: [place] [facility] ?? Portable exam?: ?? Reason for exam and clinical history: CABG x 3 ?? Other pertinent information: ?? Stat read required?: ?? Date of injury if applicable: ?? Requested Time: ?? Referral to Cardiac Rehab [[id number] Custom] As directed ? Process Instructions: ?? [...] 07/14/2017 2:34 PM EST The patient/sales representative raw fibers has been provided a list of Home Health Agencies/DME vendors which serve their preferred geographic area. A letter describing our affiliations was reviewed with them and theywere educated about their right to choose where referrals are placed. Patient requests referral to [facility]. PHONE: [phone] FAX: [phone] Expected date of discharge: 07/14 Referral routed to the Inspector Hairspring Truing for matching with agency/vendor and to provide [...] – [place] Endocrinology Diabetes Management Pager [phone] minutes of this 35 minute visit was spent with the patient in counseling on diabetes and treatment plan, reviewing all glucose and insulin data as well as relevant laboratory results with the patient, and coordination of care on the inpatient unit including nursing and primary team. Zulma Power RN - 07/14/2017 10:30 AM EST The patient/sales representative raw fibers has been provided a list of Home Health Agencies/DME vendors which serve their preferred geographic area. A letter describing our affiliations was reviewed with them and theywere educated about their right to choose where referrals are placed. Patient requests referral to : Yasmani Munguia ([facility] [place] [facility]-is in [place]) PHONE: [phone] FAX: [phone]. Expected date of discharge: 07/14/17 Referral routed to the Inspector [employer]spring Truing for matching with agency/vendor and to provide [...] hours. If BG remains greater than 240, [id number] units (no more than three times) &??call [...] – [place] Endocrinology Diabetes Management Pager [phone] 15 minutes of this 25 minute visit [...] of infiltration/extravasation Discussed plan of care with PROCUREMENT COORDINATOR and RN. Elevate exrtemity and apply [...] measuring tape and identifier in the photo) KISS MIXER CARING FOR THIS PATIENT WILL CONTINUE TO [...] measuring tape and identifier in the photo) KISS MIXER CARING FOR THIS PATIENT WILL CONTINUE TO [...] regard to both infiltrates addressed by this principal technical writer.All of MrMadiha Hoang's responses were entirely appropriate. Images of infiltrates attached here. L Martha Teague, MILITARY PILOT - 07/13/2017 8:01 AM EST Cardiac Surgery Progress Note: ID: [id number] 72 year old male POD#6 s/p CABGx3 [...] I have met with the patient/sales representative raw fibers to discuss discharge planning needs. I have provided the [facility] [place], Office of Care Management letter from the Lead Instructor/Flight Attendant pertaining to rehab referrals. I have also provided a letter describing our affiliations within the [facility] and educated them about their right to choose where referrals are placed. ?? I reviewed the different levels of rehab including SNF, swing, acute and LTAC with the patient/sales representative raw fibers. ?? The patient/sales representative raw fibers has been provided a list of facilities within their preferred geographic area. ?? I have requested that the patient/sales representative raw fibers provide at least three choices for referral. ?? The patient/sales representative raw fibers have requested referrals to: ?? [facility]. [facility] ?? 2. [facility] ?? 3. More to be entered ?? Expected date of discharge: 07/14 Note routed to Inspector [employer]spring Truing who will communicate referrals to facilities and [...] hours. If BG remains greater than 240, ovjvgt30 units (no more than three times) & [...] hours. If BG remains greater than 240, pvqung64 units (no more than three times) & call for new basal insulin orders. ??If less than 240 after two hours, give no insulin and resume prior schedule. Will continue to follow Katerin Azul APRN [facility] [place] Endocrinology Diabetes Management Pager [phone] minutes of this 35 minute visit was spent with the patient in counseling on diabetes and treatment plan, reviewing all glucose and insulin data as well as relevant laboratory results with the patient, and coordination of care on the inpatient unit including nursing and primary team. Makayla Stevenson APRN - 07/12/2017 9:52 AM EST Cardiac Surgery Progress Note: ID: [id number] 72 year old male POD#5 s/p CABGx3 [...] PM EST Patient arrived from [facility]. VSS. MSI dressing pulled off with [...] AM EST Cardiac Surgery Progress Note: ID: [id number] 72 year old male POD#4 s/p CABGx3 [...] hours. If BG remains greater than 240, awxvsv10 units (no more than three times) & [...] AM EST Cardiac Surgery Progress Note: ID: [id number] 72 year old male POD#3 s/p CABGx3 [...] Gas) No results found for: PHART, PO2ART, VWN7KFK Assessment/Plan: 72 year old male POD#3 s/p [...] Mami Thao - 07/09/2017 6:29 PM EST Manager Intelligence Encounter Note Patient Name: Gregory Hoang : [id number] MR#: [id number] Admit Date: 07/05/2017 4:20 PM Hospital Day 4 days Narrative: Patient was sitting in chair, hugging heart pillow, opened his eyes, nodding to come into room Assessment: Patient was sleepy. Intervention and Outcome: Introduced fleet assistant services and patient reached his hand out in appreciation. Follow-up: Manager Intelligence remains available for support. Time in Direct [...] AM EST Report given to staff development educator to cover care Maddison Cee PA - 07/09/2017 9:00 AM EST Cardiac Surgery Progress Note: ID: [id number] 72 year old male POD#2 s/p CABGx3 [...] completed shifts: In: 7977.4 [I.V.:7477.4; Other:500] Out: 5305 [Urine:3000; Other:615] I- 4 L O- 2.7 [...] Attending Surgeon on rounds. Signed: STEPHANIE Iqbal [facility] Section of Cardiac Surgery Date: 07/09/2017 [place] [...] when IABP d/c'ed. Gretchen Carolina, PT Pager [phone] Maddison Cee PA - 07/08/2017 11:27 AM EST Cardiac Surgery Progress Note: ID: [id number] 72 year old male POD#1 s/p CABGx3 [...] Attending Surgeon on rounds. Signed: STEPHANIE Iqbal [facility] Section of Cardiac Surgery Date: 07/08/2017 Philipp, [...] in place in R femoral. No hematoma. DRYWALL STRIPPER HELPER- Intact Psych- Anxious Skin- Dry, no peripheral [...] on the unit. DAPHNE SHAHID MD 07/07/2017 Darrell Dinorah A - 07/07/2017 6:02 AM EST Inpatient Cardiology [...] intact. IABP in place in R femoral. DRYWALL STRIPPER HELPER- Intact Psych- Anxious Skin- Dry, no peripheral [...] ejection fraction by biplane Oenill's method is 29%. Doppler assessment is consistent [...] 72 y.o. male w/ a h/o MARIA IVCTORIA (on CPAP), DM2, COPD, HTN, HLD, GERD, [...] 3011) . CARDIOLOGY ATTENDING NOTE Patient: Gregory Honag Date of Service: 07/06/2017 Date of Admission: [...] note for details. DAPHNE SHAHID MD Pager [phone] Jet Mckenna MD - 07/05/2017 6:48 PM EST Preliminary Cardiac Catheterization Procedure Note: Procedure(s) performed: Left heart cath, IABP insertion Access: Right VISUAL EDUCATION TEACHER-->8fr IABP A time-out was conducted prior to [...] Heparin gtt maintained. Pt transferred to manager lab. documented in this encounter H&P Notes Daphne Shahid MD - 07/05/2017 6:08 PM EST CARDIOLOGY HISTORY & PHYSICAL EXAM Date of Admission: 07/05/2017 ( Hospital Day 0 days ) Responsible Attending: Daphne Shahid MD PCP: Lovely Vicente MD PCP#: [phone] Patient Active Problem List Diagnosis Code ??? [...] heparin drip and transferred to [facility]. While there, continued sob, question of chest pain. Stat TTE showing WMA diffusely and EF around 20%. No significant valvular disease. Taken to the manager lab urgently for ongoing [facility]I. [facility] I/O - s/p lasix in the manager lab, redose to aim net neg 1L by [...] - ISS - hold metformin - f/u HAI #Home Meds - continue levothyroxine 175mcg - CPAP at night # Routine - DVT PPx: heparin drip - Diet: NPO - Code Status: FULL - Dispo: [facility] Cedric Bey MD Internal Medicine, PGY-2 Cardiology S1, Team Pager # [phone] CARDIOLOGY ATTENDING NOTE Patient: Gregory Hoang Date [...] amenable for PCI. DAPHNE SHAHID MD Pager [phone] documented in this encounter Miscellaneous Notes Consult Note - Daphne Shahid MD - 07/14/2017 11:46 AM EST Heart Failure Service Inpatient Consult Note Gregory Hoang Date of : 1945 Age: 72 y.o. Today's date: 07/14/17 PCP: Lovely Vicente MD SYNTHETIC FILAMENT SPINNER: None Place of Service: C451-A Reason for [...] SETUP performed by Manny Mcknight MD at [facility] OR ??? PRO CABG, ARTERIAL, SINGLE N/A 07/07/2017 @CABG, USING ARTERIAL GRAFT;SINGLE ARTERIAL GRAFT (WRVU 33.75) performed by Yuan Webber MD at [facility] OR ??? PRO CABG, ARTERY-VEIN, TWO N/A 07/07/2017 @CABG, TWO VENOUS GRAFTS & ARTERIAL GRAFT (WRVU 7.93) performed by Yuan Webber MD at [facility] OR ??? PRO COLONOSCOPY, REMV LESN, SNARE 01/16/2014 COLONOSCOPY, POLYPECTOMY, REMOVAL LESION BY SNARE performed by Nohemi Jaimes MD at [facility] ENDOSCOPY ??? PRO ENDOSCOPY W/VIDEO-ASST VEIN HARVEST, CABG Right 07/07/2017 ENDOSCOPIC HARVEST VEIN(S) FOR CABG (WRVU 0.31) performed by Yuan Webber MD at [facility] OR ??? PRO THYROIDECTOMY 03/28/2013 THYROIDECTOMY, TOTAL OR COMPLETE performed by Manny Mcknight MD at [facility] OR Outpt Meds: Current Outpatient [...] following studies: EKG 07/14/17: NSR 75 bpm, WET PROCESS ASSISTANT HEAD MILLER anterior infarct, LAD CXR 07/11/17: FINDINGS: Sternotomy wires. The patient has been extubated, left chest tube removed, and Falconer-Suzi catheter removed since the 07/07/2017 study. Atelectasis [...] of the ramus. Laboratory Data: Recent Labs 07/10/1742707/09/17 0230 07/08/17 0400 WBC 12.2* 12.5* 18.8* HGB 9.8* 10.1* 11.9* HCT 30.0* 30.3* 35.9* PLATELET 135* 127* 232 Recent Labs 07/14/176 07/13/17 0426 07/12/17 041 INR 2.4* 1.8* 1.2* Recent Labs 07/14/17 [...] was discussed with Zehra. Jaden Kelley MD Ornamenter Hand Pager [phone] CARDIOLOGY ATTENDING NOTE Patient: Gregory Hoang Date [...] heart failure clinic. DAPHNE SHAHID MD Pager [phone] Plan of Care - Alden Chavarria, COMMISSIONER CONSERVATION OF RESOURCES - 07/14/2017 11:35 AM EST Problem: Patient [...] Discharge Disposition: home with assist Alden Chavarria, COMMISSIONER CONSERVATION OF RESOURCES Pager: [phone] Inpatient Physical Therapy Problem: Acute Rehab Services [...] sit/sit to supine -- Bed Mobility Goal, [place] Level supervision required -- Bed Mobility Goal, [...] - 3 days -- Gait Training Goal, [place] Level supervision required -- Gait Training Goal, [...] days -- Transfer Training Goal, Activity Type foi-zi-mcmuv/ferft-mu-mds;pbj-an-beaxs/wvwhr-pa-ray;toilet -- Transfer Train Goal, [place] Level supervision required -- Transfer Training Goal, [...] keeping present for 2 days per family. Yield Improvement Engineer noted of frustrations, house keeping sent to room. Patient offered showered twice, refused. at bedside, frustrated that shower not complete, informed that patient had refused several times. requesting to see HOUSEKEEPING STAFF, paged sent to Martha, will come to bedside (middle of consult). not willing to wait, Martha notified that family had gone home. Encouraged to come for morning rounds a t 8am. Diabetes team at bedside - insulin adjustments made. Call cabello in reach. Continue to monitor. PLAN MOVING FORWARD: Ambulate, dressing changes BID, Please change drsg at 4am per Martha HOUSEKEEPING STAFF request. INDIVIDUALIZED FALL PREVENTION INTERVENTIONS: Patient-specific fall [...] levels on the lower side, 60ml of [place] juice given after a FS of 80. [...] monitoring required during toileting and ADLs]: RN PROCUREMENT COORDINATOR Surveillance [continuous indirect monitoring]: Barrett Monitor [...] Anticipated Discharge Disposition: home with assist Pager: [phone] CLARISSA SEGAL, PT 07/12/2017 Physical Therapy Rehabilitation [...] to sit/sit to supine Bed Mobility Goal, [place] Level supervision required Bed Mobility Goal, Additional Goal adheres to psternal precautions for transfer Goal: Gait Training Goal Stand Alone Therapy Goal Outcome: Ongoing (Interventions Implemented as Appropriate) 07/12/17 1225 Gait Training Goal Gait Training Goal, Date Established 07/12/17 Gait Training Goal, Time to Achieve 2 - 3 days Gait Training Goal, [place] Level supervision required Gait Training Goal, Assist [...] 3 days Transfer Training Goal, Activity Type don-kf-jerrk/trkxi-ge-gnf;ptx-zi-ghjec/eqzjq-ha-xvo;toilet Transfer Train Goal, [place] Level supervision required Transfer Training Goal, Additional [...] IV site, amio to other piv and PAN OPERATOR at bedside to help assess, IV [...] staff, he stood and marched in place. Orient weak, wanting to sit back down. Remained [...] Health/Prescription Coverage: Primary Insurance: MEDICARE Secondary Insurance: [employer] Prescription Coverage: yes Preferred Pharmacy: [facility] [place] Other: none Primary Care Provider: Lovely Vicente MD [phone] Patient/Caregiver Goals of Treatment:live and get my breath back Potential Needs for Transition of Care: Rehab/SNF: [facility] Home Health: DME: TBD Dialysis: na Community Resources: available Transportation: yes Other: none Anticipated Barriers to Discharge/Special Considerations: none Plan: Likely SNF Rehab before home A member of the Care Management team will continue to monitor progress, follow for continuity of care and assist with transition of care planning. ERLIN Weiss Pager: [phone] Consult Note - Katerin Azul RN - [...] potential to d/c gtt and start CF. termite control technician diabetes care: Medications - Outpatient treatment regimen recommendations pending based on the hospital course. Monitoring - continue BG tid ac & hs Diet - low fat/low carb diet Exercise - weight-bearing exercise 30 min/day, as tolerated Thank you for allowing us to provide care for your patient W/E coverage, Dr. Jeane Tatum, pager [phone] Katerin Azul APRN Endocrinology Diabetes Management Pager [phone] Plan of Care - Stephanie Godoy RN [...] Operative Note Patient Name: Gregory Hoang : [id number] MR#: [id number] Case Date: 07/07/2017 Surgeon: Surgeon(s) and Role: * Yuan Webber MD - Primary * Michael Drake PA - Physician Sheriffs Detective * Linda Flores PA - Physician Sheriffs Detective Preoperative diagnosis: 3VD Postoperative diagnosis: CAD, severe [...] Operative Note Patient Name: Gregory Hoang : [id number] MR#: [id number] Case Date: 07/07/2017 Surgeon: Surgeon(s) and Role: * Yuan Webber MD - Primary * Michael Drake PA - Physician Sheriffs Detective * Linda Flores PA - Physician Sheriffs Detective Preoperative diagnosis: 3VD Postoperative diagnosis: CAD, severe [...] place, time, and situation Labs Recent Labs 07/07/1751407/06/170 07/05/172019 WBC 7.6 [...] code status: Full Code Katty Hahn, MS3 [facility] Cardiology S1 (Pager [phone]) Plan of Care - Emelia Ibarra RN [...] SNARE performed by Nohemi Jaimes MD at [facility] ENDOSCOPY ??? PRO THYROIDECTOMY 03/28/2013 THYROIDECTOMY, TOTAL [...] with other involved physicians Yuan Webber MD [phone] Med Student Progress Note - Katty Hahn - 07/06/2017 6:10 AM EST Inpatient Cardiology Progress Note Patient Name: Gregory Hoang Date of Admission: 07/05/2017 ( Hospital Day 1 day ) Service: S1 ID: Gregory oHang is a 72 y.o. male with a [...] BiPAP - s/p lasix in the manager lab, was net -1.5L - s/p plavix load, [...] insulin drip - hold metformin - f[facility]u [facility] ?? #Home Meds - continue levothyroxine 175mcg - CPAP at night ?? # Routine - DVT PPx: heparin drip - Diet: Healthy heart diet, NPO at midnight for CABG tomorrow - Code Status: FULL - Dispo: CVCC Katty Hahn, M3 [facility] S1 (Pager [phone]) Plan of Care - Stephanie Godoy RN - 07/06/2017 5:00 AM EST Problem: Patient Care Overview Goal: Plan of Care Review 07/06/17 5596 Coping/Psychosocial Plan Of Care Reviewed With patient;family [...] urinal without difficulty. Lasix given in manager lab, 1.4 L out at this time. Pt [...] Outcome: Ongoing (Interventions Implemented as Appropriate) 07/06/17 8836 Cardiac: ACS (Acute Coronary Syndrome) Problems Assessed [...] Zulma Dolan MD [facility] [address], [place] [address] (Wo rk) 05/28/2022 Laboratory Appointment Lab 05/28/2022 Office Visit Cardiology Zulma Dolan MD [facility] [place] [address] Liz Poole PA [facility] [place] [address] 06/10/2022 Office Visit Dermatology Laura Scherer MD [facility] [address] [place], [place] [address] (Wo rk) Scheduled Orders Name [...] procedure are i n the results section. AUDIT INTERN SCAN 07/15/2017 12:00 Res ults for this [...] this ([facility]) AM EST procedure [...] this ([facility]) PM EST procedure [...] this ([facility]) PM EST procedure [...] 2017 EXAMINATION: XR CHEST PA AND LATERAL (Pix4DIC) CLINICAL HISTORY: CABG x 3 TECHNIQUE: PA [...] Teague APRN IMG DX ORDERABLES SCAN DOC: AUDIT INTERN (07/15/2017 12:00 AM EST) Narrative 07/15/2017 12:00 [...] 186 65 - 199 [place] mg/dL [facility] Comment: Supplemental ranges: <140 mg/dL before meals <180 mg/dL all other times of the day Specimen Anatomical Collection Method Collection Time Receive d Time (Source) Location / / Volume Laterality Blood specimen 07/14/2017 11:56 7 (specimen) AM EST 11:56 AM EST Yuan Webber MD POINT OF CARE TEST ORDERABLE S Performing Organization Address City/State/ZIP Code Phon e Number [place] [id number] [facility] [address] POCT Glucose (07/14/2017 7:52 AM EST) athologist Signature POC Glucose 126 65 - 199 [facility] mg/dL [facility] Comment: Supplemental ranges: <140 mg/dL before meals <180 mg/dL all other times of the day Specimen Anatomical Collection Method Collection Time Receive d Time (Source) Location / / Volume Laterality Blood specimen 07/14/2017 7:52 AM 017 7:52 (specimen) EST AM EST Yuan Webber MD POINT OF CARE TEST ORDERABLE S Performing Organization Address City/State/ZIP Code Phon e Number [address] (ABNORMAL) Prothrombin Time (07/14/2017 [...] Address City/State/ZIP Code Phon e Number [address] Potassium (07/14/2017 4:46 AM EST) athologist Signature Potassium 4.3 3.5 - 5.0 [facility] mmol/L [facility] Comment: Please note: ??Patients [...] Address City/State/ZIP Code Phon e Number [address] POCT Glucose (07/14/2017 4:34 AM EST) athologist Signature POC Glucose 115 65 - 199 [facility] mg/dL [facility] Comment: Supplemental ranges: <140 [...] [address]/ZIP Code Phon e Number [address] POCT Glucose (07/13/2017 11:33 PM EST) athologist Signature POC Glucose 132 65 - 199 [place] mg/dL [facility] Comment: Supplemental ranges: <140 [...] [address]/ZIP Code Phon e Number [address] POCT Glucose (07/13/2017 9:25 PM EST) athologist Signature POC Glucose 121 65 - 199 [place] mg/dL [facility] Comment: Supplemental ranges: <140 mg/dL before meals <180 mg/dL all other times of the day Specimen Anatomical Collection Method Collection Time Receive d Time (Source) Location / / Volume Laterality Blood specimen 07/13/2017 9:25 PM 017 9:25 (specimen) EST PM EST Yuan Webber MD POINT OF CARE TEST ORDERABLE S Performing Organization Address City/State/ZIP Code Phon e Number [address] POCT Glucose (07/13/2017 4:55 PM EST) P athologist Signature POC Glucose 79 65 - 199 [facility] mg/dL [facility] Comment: Supplemental ranges: <140 mg/dL before meals <180 mg/dL all other times of the day Specimen Anatomical Collection Method Collection Time Receive d Time (Source) Location / / Volume Laterality Blood specimen 07/13/2017 4:55 PM 017 4:55 (specimen) EST PM EST Yuan Webber MD POINT OF CARE TEST ORDERABLE S Performing Organization Address City/State/ZIP Code Phon e Number [address] POCT Glucose (07/13/2017 11:16 AM EST) P athologist Signature POC Glucose 163 65 - 199 [place] mg/dL [facility] Comment: Supplemental ranges: <140 mg/dL before meals <180 mg/dL all other times of the day Specimen Anatomical Collection Method Collection Time Receive d Time (Source) Location / / Volume Laterality Blood specimen 07/13/2017 11:16 7 (specimen) AM EST 11:16 AM EST Yuan Webber MD POINT OF CARE TEST ORDERABLE S Performing Organization Address City/State/ZIP Code Phon e Number [address] POCT Glucose (07/13/2017 8:07 AM EST) P athologist Signature POC Glucose 96 65 - 199 [place] [place] mg/dL [facility] Comment: Supplemental ranges: <140 [...] [address]/[place] [address] (ABNORMAL) Prothrombin Time (07/13/2017 [...] [address]/[place] [address] (ABNORMAL) Basic Metabolic Panel (non-fasting) (07/13/2017 4:26 AM EST) P athologist Signature Glucose Lvl 95 65 - 199 [facility] mg/dL [facility] LABORATORY [...] [facility]ORY Estimated GFR 60 >=60 [facility] Comment: The reported eGFR should be multiplied b y 1.2 for patients. The MDRD is not an appropriate measure o f renal function for patients with body mass extremes or in patients with acute kidney failure. http://PinPay/DHnkdep http://PinPay/DHMCnkf Specimen Anatomical Collection Method Collection Time Receive d Time (Source) Location / / Volume Laterality Blood specimen 07/13/2017 4:26 AM 017 4:46 (specimen) EST AM EST Resulting Agency Comment Spec In Lab Makayla Wilson APRN CHEMISTRY ORDERABLES Performing Organization Address City/[facility] [address]/ZIP Code Phon e Number [address] POCT Glucose (07/13/2017 3:52 AM EST) P athologist Signature POC Glucose 93 65 - 199 [facility] mg/dL [facility] Comment: Supplemental ranges: <140 mg/dL before meals <180 mg/dL all other times of the day Specimen Anatomical Collection Method Collection Time Receive d Time (Source) Location / / Volume Laterality Blood specimen 07/13/2017 3:52 AM 017 3:52 (specimen) EST AM EST Yuan Webber MD POINT OF CARE TEST ORDERABLE S Performing Organization Address City/State/[place] [address] POCT Glucose (07/13/2017 12:21 AM EST) athologist Signature POC Glucose 80 65 - 199 [place] mg/dL [facility] Comment: Supplemental ranges: <140 mg/dL before meals <180 mg/dL all other times of the day Specimen Anatomical Collection Method Collection Time Receive d Time (Source) Location / / Volume Laterality Blood specimen 07/13/2017 12:21 7 (specimen) AM EST 12:21 AM EST Yuan Webber MD POINT OF CARE TEST ORDERABLE S Performing Organization Address City/State/ZIP Code Phon e Number [address] POCT Glucose (07/12/2017 8:22 PM EST) athologist Signature POC Glucose 119 65 - 199 [facility] mg/dL [facility] Comment: Supplemental ranges: <140 mg/dL before meals <180 mg/dL all other times of the day Specimen Anatomical Collection Method Collection Time Receive d Time (Source) Location / / Volume Laterality Blood specimen 07/12/2017 8:22 PM 017 8:22 (specimen) EST PM EST Yuan Webber MD POINT OF CARE TEST ORDERABLE S Performing Organization Address City/State/ZIP Code Phon e Number [address] POCT Glucose (07/12/2017 4:02 PM EST) athologist Signature POC Glucose 114 65 - 199 [facility] mg/dL [facility] Comment: Supplemental ranges: <140 mg/dL before meals <180 mg/dL all other times of the day Specimen Anatomical Collection Method Collection Time Receive d Time (Source) Location / / Volume Laterality Blood specimen 07/12/2017 4:02 PM 017 4:02 (specimen) EST PM EST Yuan Webber MD POINT OF CARE TEST ORDERABLE S Performing Organization Address City/State/[place] [address] POCT Glucose (07/12/2017 11:28 AM EST) athologist Signature POC Glucose 164 65 - 199 [facility] Comment: Supplemental ranges: <140 mg/dL before meals <180 mg/dL all other times of the day Specimen Anatomical Collection Method Collection Time Receive d Time (Source) Location / / Volume Laterality Blood specimen 07/12/2017 11:28 7 (specimen) AM EST 11:28 AM EST Yuan Webber MD POINT OF CARE TEST ORDERABLE S Performing Organization Address City/State/ZIP Code Phon e Number [address] POCT Glucose (07/12/2017 7:34 AM EST) athologist Signature POC Glucose 109 65 - 199 [facility] Comment: Supplemental ranges: <140 mg/dL before meals <180 mg/dL all other times of the day Specimen Anatomical Collection Method Collection Time Receive d Time (Source) Location / / Volume Laterality Blood specimen 07/12/2017 7:34 AM 017 7:34 (specimen) EST AM EST Yuan Webber MD POINT OF CARE TEST ORDERABLE S Performing Organization Address City/State/[place] [address] (ABNORMAL) Basic Metabolic Panel (non-fasting) (07/12/2017 4:11 AM EST) athologist Signature Glucose Lvl 92 65 - 199 [facility] Comment: [...] or in patients with acute kidney failure. http://PinPay/DHnkdep http://PinPay/DHnkf Specimen Anatomical Collection Method Collection Time Receive d Time (Source) Location / / Volume Laterality Blood specimen 07/12/2017 4:11 AM 017 8:57 (specimen) EST AM EST Resulting Agency Comment Spec In Lab Makayla Katie QUINONES CHEMISTRY ORDERABLES Performing Organization Address City/State/[place] [address] (ABNORMAL) Prothrombin Time (07/12/2017 [...] [address]/[place] [address] Potassium (07/12/2017 4:11 AM EST) athologist Signature Potassium 3.8 3.5 - 5.0 [facility] mmol/L [facility] Comment: Please note: ??Patients [...] [address]/[place] [address] POCT Glucose (07/12/2017 4:10 AM EST) athologist Signature POC Glucose 90 65 - 199 [facility]/dL [facility] Comment: Supplemental ranges: <140 [...] [address]/[place] [address] POCT Glucose (07/11/2017 11:57 PM EST) athologist Signature POC Glucose 98 65 - 199 [facility] mg/dL [facility] Comment: Supplemental ranges: <140 mg/dL before meals <180 mg/dL all other times of the day Specimen Anatomical Collection Method Collection Time Receive d Time (Source) Location / / Volume Laterality Blood specimen 07/11/2017 11:57 7 (specimen) PM EST 11:57 PM EST Yuan Webber MD POINT OF CARE TEST ORDERABLE S Performing Organization Address City/State/[place] [address] POCT Glucose (07/11/2017 8:32 PM EST) P athologist Signature POC Glucose 146 65 - 199 [facility] mg/dL [facility] Comment: Supplemental ranges: <140 mg/dL before meals <180 mg/dL all other times of the day Specimen Anatomical Collection Method Collection Time Receive d Time (Source) Location / / Volume Laterality Blood specimen 07/11/2017 8:32 PM 017 8:32 (specimen) EST PM EST Yuan Webber MD POINT OF CARE TEST ORDERABLE S Performing Organization Address City/State/[place] [address] XR Chest PA & [...] e xtubated, left chest tube removed, and Falconer-Suzi catheter removed since the study. Atelectasis at [...] e xtubated, left chest tube removed, and Falconer-Suzi catheter removed since the study. Atelectasis at [...] POC Glucose 223 (H) 65 - 199 [facility]/dL [facility] Comment: Supplemental ranges: <140 [...] [address]/[place] [address] POCT Glucose (07/11/2017 11:55 AM EST) athologist Signature POC Glucose 176 65 - 199 [place] [place] mg/dL [facility] Comment: Supplemental ranges: <140 mg/dL before meals <180 mg/dL all other times of the day Specimen Anatomical Collection Method Collection Time Receive d Time (Source) Location / / Volume Laterality Blood specimen 07/11/2017 11:55 7 (specimen) AM EST 11:55 AM EST Yuan Webber MD POINT OF CARE TEST ORDERABLE S Performing Organization Address City/State/[place] [address] POCT Glucose (07/11/2017 7:53 AM EST) athologist Signature POC Glucose 189 65 - 199 [facility] mg/dL [facility] Comment: Supplemental ranges: <140 [...] [facility] [address]/ZIP [facility] Phon e Number [address] POCT Glucose (07/11/2017 4:22 AM EST) athologist Signature POC Glucose 151 65 - 199 [facility] mg/dL [facility] Comment: Supplemental ranges: <140 mg/dL before meals <180 mg/dL all other times of the day Specimen Anatomical Collection Method Collection Time Receive d Time (Source) Location / / Volume Laterality Blood specimen 07/11/2017 4:22 AM 017 4:22 (specimen) EST AM EST Yuan Webber MD POINT OF CARE TEST ORDERABLE S Performing Organization Address City/[facility] [address]/[facility] Phon e Number [address] Potassium (07/11/2017 2:20 AM EST) athologist Signature Potassium 4.5 3.5 - 5.0 [facility] mmol/L [facility] Comment: Please note: ??Patients [...] Address City/State/ZIP Code Phon e Number [address] POCT Glucose (07/11/2017 12:17 AM EST) athologist Signature POC Glucose 162 65 - 199 [place] mg/dL [facility] Comment: Supplemental ranges: <140 [...] [address]/ZIP Code Phon e Number [address] POCT Glucose (07/10/2017 8:47 PM EST) athologist Signature POC Glucose 191 65 - 199 [place] mg/dL [facility] Comment: Supplemental ranges: <140 [...] [address]/ZIP Code Ph[place] [address] POCT Glucose (07/10/2017 4:06 PM EST) athologist Signature POC Glucose 131 65 - 199 [place] mg/dL [facility] Comment: Supplemental ranges: <140 mg/dL before meals <180 mg/dL all other times of the day Specimen Anatomical Collection Method Collection Time Receive d Time (Source) Location / / Volume Laterality Blood specimen 07/10/2017 4:06 PM 017 4:06 (specimen) EST PM EST Yuan Webber MD POINT OF CARE TEST ORDERABLE S Performing Organization Address City/State/[place] [address] POCT Glucose (07/10/2017 3:08 PM EST) athologist Signature POC Glucose 151 65 - 199 [place] [place] mg/dL [facility] Comment: Supplemental ranges: <140 mg/dL before meals <180 mg/dL all other times of the day Specimen Anatomical Collection Method Collection Time Receive d Time (Source) Location / / Volume Laterality Blood specimen 07/10/2017 3:08 PM 017 3:08 (specimen) EST PM EST Yuan Webber MD POINT OF CARE TEST ORDERABLE S Performing Organization Address City/State/ZIP Code Phon e Number [address] POCT Glucose (07/10/2017 2:25 PM EST) athologist Signature POC Glucose 146 65 - 199 [facility] mg/dL [facility] Comment: Supplemental ranges: <140 mg/dL before meals <180 mg/dL all other times of the day Specimen Anatomical Collection Method Collection Time Receive d Time (Source) Location / / Volume Laterality Blood specimen 07/10/2017 2:25 PM 017 2:25 (specimen) EST PM EST Yuan Webber MD POINT OF CARE TEST ORDERABLE S Performing Organization Address City/State/ZIP Code Phon e Number [address] POCT Glucose (07/10/2017 1:23 PM EST) athologist Signature POC Glucose 166 65 - 199 [place] [place] mg/dL [facility] Comment: Supplemental ranges: <140 mg/dL before meals <180 mg/dL all other times of the day Specimen Anatomical Collection Method Collection Time Receive d Time (Source) Location / / Volume Laterality Blood specimen 07/10/2017 1:23 PM 017 1:23 (specimen) EST PM EST Yuan Webber MD POINT OF CARE TEST ORDERABLE S Performing Organization Address City/State/[place] [address] POCT Glucose (07/10/2017 11:52 AM EST) P athologist Signature POC Glucose 157 65 - 199 [place] mg/dL [facility] Comment: Supplemental ranges: <140 mg/dL before meals <180 mg/dL all other times of the day Specimen Anatomical Collection Method Collection Time Receive d Time (Source) Location / / Volume Laterality Blood specimen 07/10/2017 11:52 7 (specimen) AM EST 11:52 AM EST Yuan Webber MD POINT OF CARE TEST ORDERABLE S Performing Organization Address City/State/ZIP Code Phon e Number [address] POCT Glucose (07/10/2017 11:01 AM EST) athologist Signature POC Glucose 158 65 - 199 [facility] mg/dL [facility] Comment: Supplemental ranges: <140 mg/dL before meals <180 mg/dL all other times of the day Specimen Anatomical Collection Method Collection Time Receive d Time (Source) Location / / Volume Laterality Blood specimen 07/10/2017 11:01 7 (specimen) AM EST 11:01 AM EST Yuan Webber MD POINT OF CARE TEST ORDERABLE S Performing Organization Address City/State/ZIP Code Phon e Number [address] POCT Glucose (07/10/2017 9:54 AM EST) athologist Signature POC Glucose 160 65 - 199 [facility] mg/dL [facility] Comment: Supplemental ranges: <140 mg/dL before meals <180 mg/dL all other times of the day Specimen Anatomical Collection Method Collection Time Receive d Time (Source) Location / / Volume Laterality Blood specimen 07/10/2017 9:54 AM 017 9:54 (specimen) EST AM EST Yuan Webber MD POINT OF CARE TEST ORDERABLE S Performing Organization Address City/State/[place] [address] POCT Glucose (07/10/2017 8:58 AM EST) athologist Signature POC Glucose 183 65 - 199 [place] mg/dL [facility] Comment: Supplemental ranges: <140 mg/dL before meals <180 mg/dL all other times of the day Specimen Anatomical Collection Method Collection Time Receive d Time (Source) Location / / Volume Laterality Blood specimen 07/10/2017 8:58 AM 017 8:58 (specimen) EST AM EST Yuan Webber MD POINT OF CARE TEST ORDERABLE S Performing Organization Address City/State/[place] [address] POCT Glucose (07/10/2017 8:01 AM EST) athologist Signature POC Glucose 173 65 - 199 [place] mg/dL [facility] Comment: Supplemental ranges: <140 mg/dL before meals <180 mg/dL all other times of the day Specimen Anatomical Collection Method Collection Time Receive d Time (Source) Location / / Volume Laterality Blood specimen 07/10/2017 8:01 AM 017 8:01 (specimen) EST AM EST Yuan Webber MD POINT OF CARE TEST ORDERABLE S Performing Organization Address City/State/ZIP Code Phon e Number [address] POCT Glucose (07/10/2017 7:05 AM EST) athologist Signature POC Glucose 166 65 - 199 [place] [place] mg/dL [facility] Comment: Supplemental ranges: <140 mg/dL before meals <180 mg/dL all other times of the day Specimen Anatomical Collection Method Collection Time Receive d Time (Source) Location / / Volume Laterality Blood specimen 07/10/2017 7:05 AM 017 7:05 (specimen) EST AM EST Yuan Webber MD POINT OF CARE TEST ORDERABLE S Performing Organization Address City/State/ZIP Code Phon e Number [address] POCT Glucose (07/10/2017 6:00 AM EST) P athologist Signature POC Glucose 162 65 - 199 [facility] mg/dL [facility] Comment: Supplemental ranges: <140 mg/dL before meals <180 mg/dL all other times of the day Specimen Anatomical Collection Method Collection Time Receive d Time (Source) Location / / Volume Laterality Blood specimen 07/10/2017 6:00 AM 017 6:00 (specimen) EST AM EST Yuan Webber MD POINT OF CARE TEST ORDERABLE S Performing Organization Address City/State/[place] [address] (ABNORMAL) Differential, Automated (07/10/2017 4:28 AM EST) Patholo gist Method Time Signature Neutrophils % 87.9 % [facility] LABORATORY Neutr Abs (ANC) 10.70 (H) 1.70 - [facility] 6.10 [facility] x10(3)/[facility] LABORATORY Lymphocytes % 3.9 % [facility] LABOR[facility]ORY Lymphocytes Abs 0.5 (L) 0.9 - 3.2 [facility] x10(3)/[facility] LABORATORY Monocytes % 7.0 % [facility] LABORATORY Monocyte Abs 0.8 0.3 - 0.9 [facility] x10(3)/[facility] LABORATORY Eosinophils % 0.3 % [facility] LABORATORY Eosinophils Abs 0.0 0.0 - 0.4 [facility] x10(3)/[facility] LABORATORY Basophils % 0.2 % [facility] LABORATORY Basophils Abs 0.0 0.0 - 0.1 [facility] x10(3)/[facility] LABORATORY Immature Gran % 0.70 % WHITE [...] Organization Address City/State/[place] [address] (ABNORMAL) Hemogram (07/10/2017 4:28 AM EST) Analysis Performed At Patho logist Time Signature WBC 12.2 (H) 4.0 - 9.5 [facility] x10(3)/[facility] LABORATORY RBC 3.31 (L) 4.58 - [facility] 5.54 [facility] x10(6)/[facility] LABORATORY Hemoglobin 9.8 (L) 13.7 - [facility] 16.5 gm/dL [facility] LABOR[facility]ORY Hematocrit 30.0 (L) 40.5 - [facility] 48.5 % [facility]ATORY MCV 90.6 82.9 - [facility] 93.1 [facility] LABORATORY MCH 29.6 27.5 - [facility] 32.1 pg [facility] LABORATORY MCHC 32.7 32.0 - [facility] 35.7 gm/dL [facility] LABORATORY Platelets 135 (L) 145 - 357 [facility] x10(3)/[facility] LABORATORY RDWSD 50.8 (H) 36.0 - [facility] 45.0 [facility] LABORATORY RDWCV 15.4 (H) 11.4 - [facility] 13.8 % [facility] LABORATORY MPV 10.0 7.6 - 12.9 [facility] LABORATORY nRBC % Auto 0.0 % [facility] LABORATORY nRBC Abs Auto 0.000 0.000 - [facility] 0.000 [facility] x10(3)/[facility] LABORATORY Specimen Anatomical Collection Method Collection Time Receive d Time (Source) Location / / Volume Laterality Blood specimen 07/10/2017 4:28 AM 017 4:36 (specimen) EST AM EST Resulting Agency Comment Spec In Lab Yuan Webber MD HEMATOLOGY ORDERABLES Performing Organization Address City/[facility] [address]/[place] [address] (ABNORMAL) Basic Metabolic Panel (non-fasting) (07/10/2017 4:28 AM EST) P athologist Signature Glucose Lvl 178 65 - 199 [facility] mg/dL [facility] LABORATORY [...] CARE HOSPITAL LABORATORY Estimated GFR 60 >=60 [facility] LABORATORY Comment: The reported eGFR should be multiplied b y 1.2 for patients. The MDRD is not an appropriate measure o f renal function for patients with body mass extremes or in patients with acute kidney failure. http://Kanbanize.1,2,3 Listo/DHnkdep http://Kanbanize.1,2,3 Listo/DHMCnkf Specimen Anatomical Collection Method Collection Time Receive d Time (Source) Location / / Volume Laterality Blood specimen 07/10/2017 4:28 AM 017 4:36 (specimen) EST AM EST Resulting Agency Comment Spec In Lab Yuan Webber MD CHEMISTRY ORDERABLES Performing Organization Address City/[facility] [address]/[place] [address] POCT Glucose (07/10/2017 4:26 AM EST) P athologist Signature POC Glucose 176 65 - 199 [facility] mg/dL [facility] LABORATORY Comment: Supplemental ranges: <140 mg/dL before meals <180 mg/dL all other times of the day Specimen Anatomical Collection Method Collection Time Receive d Time (Source) Location / / Volume Laterality Blood specimen 07/10/2017 4:26 AM 017 4:26 (specimen) EST AM EST Yuan Webber MD POINT OF CARE TEST ORDERABLE S Performing Organization Address City/State/[place] [address] (ABNORMAL) POCT Glucose (07/10/2017 3:06 AM EST) athologist Signature POC Glucose 204 (H) 65 - 199 [facility] mg/dL [facility] LABORATORY Comment: Supplemental ranges: <140 mg/dL before meals <180 mg/dL all other times of the day Specimen Anatomical Collection Method Collection Time Receive d Time (Source) Location / / Volume Laterality Blood specimen 07/10/2017 3:06 AM 017 3:06 (specimen) EST AM EST Yuan Webber MD POINT OF CARE TEST ORDERABLE S Performing Organization Address City/State/[place] [address] (ABNORMAL) POCT Glucose (07/10/2017 2:10 AM EST) athologist Signature POC Glucose 203 (H) 65 - 199 [facility] mg/dL [facility] LABORATORY Comment: Supplemental ranges: <140 mg/dL before meals <180 mg/dL all other times of the day Specimen Anatomical Collection Method Collection Time Receive d Time (Source) Location / / Volume Laterality Blood specimen 07/10/2017 2:10 AM 017 2:10 (specimen) EST AM EST Yuan Webber MD POINT OF CARE TEST ORDERABLE S Performing Organization Address City/State/ZIP Code Phon e Number [address] POCT Glucose (07/10/2017 1:09 AM EST) P athologist Signature POC Glucose 196 65 - 199 [facility] mg/dL [facility] LABORATORY Comment: Supplemental ranges: <140 mg/dL before meals <180 mg/dL all other times of the day Specimen Anatomical Collection Method Collection Time Receive d Time (Source) Location / / Volume Laterality Blood specimen 07/10/2017 1:09 AM 017 1:09 (specimen) EST AM EST Yuan Webber MD POINT OF CARE TEST ORDERABLE S Performing Organization Address City/State/ZIP Code Phon e Number [address] POCT Glucose (07/10/2017 12:10 AM EST) athologist Signature POC Glucose 173 65 - 199 [place] mg/dL [facility] LABORATORY Comment: Supplemental ranges: <140 mg/dL before meals <180 mg/dL all other times of the day Specimen Anatomical Collection Method Collection Time Receive d Time (Source) Location / / Volume Laterality Blood specimen 07/10/2017 12:10 7 (specimen) AM EST 12:10 AM EST Yuan Webber MD POINT OF CARE TEST ORDERABLE S Performing Organization Address City/State/ZIP Code Phon e Number [address] POCT Glucose (07/09/2017 11:01 PM EST) athologist Signature POC Glucose 140 65 - 199 [place] mg/dL [facility] LABORATORY Comment: Supplemental ranges: <140 mg/dL before meals <180 mg/dL all other times of the day Specimen Anatomical Collection Method Collection Time Receive d Time (Source) Location / / Volume Laterality Blood specimen 07/09/2017 11:01 7 (specimen) PM EST 11:01 PM EST Yuan Webber MD POINT OF CARE TEST ORDERABLE S Performing Organization Address City/State/[place] [address] POCT Glucose (07/09/2017 10:05 PM EST) athologist Signature POC Glucose 144 65 - 199 [facility] mg/dL [facility] LABORATORY Comment: Supplemental ranges: <140 mg/dL before meals <180 mg/dL all other times of the day Specimen Anatomical Collection Method Collection Time Receive d Time (Source) Location / / Volume Laterality Blood specimen 07/09/2017 10:05 7 (specimen) PM EST 10:05 PM EST Yuan Webber MD POINT OF CARE TEST ORDERABLE S Performing Organization Address City/State/ZIP Code Phon e Number [address] POCT Glucose (07/09/2017 9:31 PM EST) athologist Signature POC Glucose 121 65 - 199 [place] mg/dL [facility] LABORATORY Comment: Supplemental ranges: <140 mg/dL before meals <180 mg/dL all other times of the day Specimen Anatomical Collection Method Collection Time Receive d Time (Source) Location / / Volume Laterality Blood specimen 07/09/2017 9:31 PM 017 9:31 (specimen) EST PM EST Yuan Webber MD POINT OF CARE TEST ORDERABLE S Performing Organization Address City/State/ZIP Code Phon e Number [address] POCT Glucose (07/09/2017 9:03 PM EST) athologist Signature POC Glucose 98 65 - 199 [place] mg/dL [facility] LABORATORY Comment: Supplemental ranges: <140 mg/dL before meals <180 mg/dL all other times of the day Specimen Anatomical Collection Method Collection Time Receive d Time (Source) Location / / Volume Laterality Blood specimen 07/09/2017 9:03 PM 017 9:03 (specimen) EST PM EST Yuan Webber MD POINT OF CARE TEST ORDERABLE S Performing Organization Address City/State/ZIP Code Phon e Number [address] POCT Glucose (07/09/2017 8:09 PM EST) athologist Signature POC Glucose 117 65 - 199 [place] mg/dL [facility] LABORATORY Comment: Supplemental ranges: <140 mg/dL before meals <180 mg/dL all other times of the day Specimen Anatomical Collection Method Collection Time Receive d Time (Source) Location / / Volume Laterality Blood specimen 07/09/2017 8:09 PM 017 8:09 (specimen) EST PM EST Yuan Webber MD POINT OF CARE TEST ORDERABLE S Performing Organization Address City/State/[place] [address] POCT Glucose (07/09/2017 5:40 PM EST) athologist Signature POC Glucose 155 65 - 199 [place] mg/dL [facility] LABORATORY Comment: Supplemental ranges: <140 mg/dL before meals <180 mg/dL all other times of the day Specimen Anatomical Collection Method Collection Time Receive d Time (Source) Location / / Volume Laterality Blood specimen 07/09/2017 5:40 PM 017 5:40 (specimen) EST PM EST Yuan Webber MD POINT OF CARE TEST ORDERABLE S Performing Organization Address City/State/[place] [address] POCT Glucose (07/09/2017 4:24 PM EST) athologist Signature POC Glucose 164 65 - 199 [place] mg/dL [facility] LABORATORY Comment: Supplemental ranges: <140 mg/dL before meals <180 mg/dL all other times of the day Specimen Anatomical Collection Method Collection Time Receive d Time (Source) Location / / Volume Laterality Blood specimen 07/09/2017 4:24 PM 017 4:24 (specimen) EST PM EST Yuan Webber MD POINT OF CARE TEST ORDERABLE S Performing Organization Address City/State/ZIP Code Phon e Number [address] POCT Glucose (07/09/2017 3:19 PM EST) athologist Signature POC Glucose 166 65 - 199 [place] mg/dL [facility] LABORATORY Comment: Supplemental ranges: <140 mg/dL before meals <180 mg/dL all other times of the day Specimen Anatomical Collection Method Collection Time Receive d Time (Source) Location / / Volume Laterality Blood specimen 07/09/2017 3:19 PM 017 3:19 (specimen) EST PM EST Yuan Webber MD POINT OF CARE TEST ORDERABLE S Performing Organization Address City/State/[place] [address] POCT Glucose (07/09/2017 2:26 PM EST) athologist Signature POC Glucose 179 65 - 199 [facility] mg/dL [facility] LABORATORY Comment: Supplemental ranges: <140 mg/dL before meals <180 mg/dL all other times of the day Specimen Anatomical Collection Method Collection Time Receive d Time (Source) Location / / Volume Laterality Blood specimen 07/09/2017 2:26 PM 017 2:26 (specimen) EST PM EST Yuan Webber MD POINT OF CARE TEST ORDERABLE S Performing Organization Address City/State/[place] [address] (ABNORMAL) POCT Glucose (07/09/2017 1:29 PM EST) athologist Signature POC Glucose 210 (H) 65 - 199 [facility] mg/dL [facility] LABORATORY Comment: Supplemental ranges: <140 mg/dL before meals <180 mg/dL all other times of the day Specimen Anatomical Collection Method Collection Time Receive d Time (Source) Location / / Volume Laterality Blood specimen 07/09/2017 1:29 PM 017 1:29 (specimen) EST PM EST Yuan Webber MD POINT OF CARE TEST ORDERABLE S Performing Organization Address City/State/[place] [address] POCT Glucose (07/09/2017 12:20 PM EST) athologist Signature POC Glucose 172 65 - 199 [place] mg/dL [facility] LABORATORY Comment: Supplemental ranges: <140 mg/dL before meals <180 mg/dL all other times of the day Specimen Anatomical Collection Method Collection Time Receive d Time (Source) Location / / Volume Laterality Blood specimen 07/09/2017 12:20 7 (specimen) PM EST 12:20 PM EST Yuan Webber MD POINT OF CARE TEST ORDERABLE S Performing Organization Address City/State/ZIP Code Phon e Number [address] POCT Glucose (07/09/2017 11:24 AM EST) athologist Signature POC Glucose 156 65 - 199 [facility] mg/dL [facility] LABORATORY Comment: Supplemental ranges: <140 mg/dL before meals <180 mg/dL all other times of the day Specimen Anatomical Collection Method Collection Time Receive d Time (Source) Location / / Volume Laterality Blood specimen 07/09/2017 11:24 7 (specimen) AM EST 11:24 AM EST Yuan Webber MD POINT OF CARE TEST ORDERABLE S Performing Organization Address City/State/ZIP Code Phon e Number [address] POCT Glucose (07/09/2017 11:11 AM EST) athologist Signature POC Glucose 172 65 - 199 [place] mg/dL [facility] LABORATORY Comment: Supplemental ranges: <140 mg/dL before meals <180 mg/dL all other times of the day Specimen Anatomical Collection Method Collection Time Receive d Time (Source) Location / / Volume Laterality Blood specimen 07/09/2017 11:11 7 (specimen) AM EST 11:11 AM EST Yuan Webber MD POINT OF CARE TEST ORDERABLE S Performing Organization Address City/State/ZIP Code Phon e Number [address] POCT Glucose (07/09/2017 10:08 AM EST) athologist Signature POC Glucose 176 65 - 199 [place] mg/dL [facility] LABORATORY Comment: Supplemental ranges: <140 mg/dL before meals <180 mg/dL all other times of the day Specimen Anatomical Collection Method Collection Time Receive d Time (Source) Location / / Volume Laterality Blood specimen 07/09/2017 10:08 7 (specimen) AM EST 10:08 AM EST Yuan Webber MD POINT OF CARE TEST ORDERABLE S Performing Organization Address City/State/[place] [address] POCT Glucose (07/09/2017 8:02 AM EST) P athologist Signature POC Glucose 178 65 - 199 [facility] mg/dL [facility] LABORATORY Comment: Supplemental ranges: <140 mg/dL before meals <180 mg/dL all other times of the day Specimen Anatomical Collection Method Collection Time Receive d Time (Source) Location / / Volume Laterality Blood specimen 07/09/2017 8:02 AM 017 8:02 (specimen) EST AM EST Yuan Webber MD POINT OF CARE TEST ORDERABLE S Performing Organization Address City/State/[place] [address] (ABNORMAL) BLOOD GAS 2 ARTERIAL (07/09/2017 5:37 AM EST) Analysis Performed At Patho logist Time Signature pH Art 7.36 7.35 - [facility] 7.45 [facility] LABORATORY pCO2 Art 38 35 - 45 [facility] mmHg [facility] LABORATORY pO2 Art 79 (L) 85 - 104 [facility] mmHg [facility] LABORATORY HCO3 Art 20.9 20.0 - [facility] 26.0 [facility] mmol/L [facility] LABORATORY BE Art -4.6 (L) -3.0 - 3.0 [facility] mmol/L [facility] LABORATORY Hgb Blood Gas 10.5 (L) 13.7 - [facility] 16.5 gm/dL [facility] LABORATORY O2HB Art 93.8 (L) 94.0 - [facility] 97.0 % [facility] LABORATORY COHB Art 0.3 % [...] [facility] LABORATORY FIO2 Art 40 % [facility] LABORATORY PF Ratio Art 198 [facility] LABORATORY Specimen Anatomical Collection Method Collection Time Receive d Time (Source) Location / / Volume Laterality Blood specimen 07/09/2017 5:37 AM 017 5:37 (specimen) EST AM EST Yuan Webber MD CHEMISTRY ORDERABLES Performing Organization Address City/State/[place] [address] POCT Glucose (07/09/2017 3:27 AM EST) P athologist Signature POC Glucose 192 65 - 199 [facility] mg/dL [facility] LABORATORY Comment: Supplemental ranges: <140 mg/dL before meals <180 mg/dL all other times of the day Specimen Anatomical Collection Method Collection Time Receive d Time (Source) Location / / Volume Laterality Blood specimen 07/09/2017 3:27 AM 017 3:27 (specimen) EST AM EST Yuan Webber MD POINT OF CARE TEST ORDERABLE S Performing Organization Address City/State/[place] [address] (ABNORMAL) Basic Metabolic Panel (non-fasting) (07/09/2017 2:30 AM EST) P athologist Signature Glucose Lvl 179 65 - 199 [facility] mg/dL [facility] LABORATORY [...] or in patients with acute kidney failure. http://Kanbanize.1,2,3 Listo/DHnkdep http://Kanbanize.1,2,3 Listo/DHMCnkf Specimen Anatomical Collection Method Collection Time Receive d Time (Source) Location / / Volume Laterality Blood specimen Venous Draw / 07/09/2017 2:30 AM 2016 2:42 (specimen) Unknown EST AM EST Resulting Agency Comment Spec In Lab Yuan Webber MD CHEMISTRY ORDERABLES Performing Organization Address City/State/[place] [address] (ABNORMAL) Potassium (07/09/2017 2:30 AM EST) P athologist Signature Potassium 5.1 (H) 3.5 - 5.0 [facility] mmol/L [facility] LABORATORY Comment: Please note: ??Patients [...] [address]/[place] [address] (ABNORMAL) Hemogram (07/09/2017 2:30 AM EST) Analysis Performed At Patho logist Time Signature WBC 12.5 (H) 4.0 - 9.5 [place] x10(3)/[facility] LABORATORY RBC 3.38 (L) 4.58 - [place] 5.54 [facility] x10(6)/[facility] LABORATORY Hemoglobin 10.1 (L) 13.7 - [place] 16.5 gm/dL [facility] LABORATORY Hematocrit 30.3 (L) 40.5 - [place] [place] 48.5 % [facility] LABORATORY MCV 89.6 82.9 - [place] 93.1 [facility] LABORATORY MCH 29.9 27.5 - [place] 32.1 pg [facility] LABORATORY MCHC 33.3 32.0 - [place] 35.7 gm/dL [facility] LABORATORY Platelets 127 (L) 145 - 357 [place] x10(3)/[facility] LABORATORY RDWSD 49.3 (H) 36.0 - [place] 45.0 [facility] LABORATORY RDWCV 15.2 (H) 11.4 - [place] 13.8 % [facility] LABORATORY MPV 9.9 7.6 - 12.9 [facility] LABORATORY nRBC % Auto 0.0 % [facility] LABORATORY nRBC Abs Auto 0.000 0.000 - [place] 0.000 [facility] x10(3)/[facility] LABORATORY Specimen Anatomical Collection Method Collection Time Receive d Time (Source) Location / / Volume Laterality Blood specimen 07/09/2017 2:30 AM 017 2:41 (specimen) EST AM EST Resulting Agency Comment Spec In Lab Yuan Webber MD HEMATOLOGY ORDERABLES Performing Organization Address City/State/ZIP Code Phon e Number [address] POCT Glucose (07/09/2017 2:10 AM EST) athologist Signature POC Glucose 169 65 - 199 [facility] mg/dL [facility] LABORATORY Comment: Supplemental ranges: <140 mg/dL before meals <180 mg/dL all other times of the day Specimen Anatomical Collection Method Collection Time Receive d Time (Source) Location / / Volume Laterality Blood specimen 07/09/2017 2:10 AM 017 2:10 (specimen) EST AM EST Yuan Wbeber MD POINT OF CARE TEST ORDERABLE S Performing Organization Address City/State/ZIP Code Phon e Number [address] POCT Glucose (07/09/2017 1:01 AM EST) athologist Signature POC Glucose 173 65 - 199 [facility]/dL [facility] LABORATORY Comment: Supplemental ranges: <140 mg/dL before meals <180 mg/dL all other times of the day Specimen Anatomical Collection Method Collection Time Receive d Time (Source) Location / / Volume Laterality Blood specimen 07/09/2017 1:01 AM 017 1:01 (specimen) EST AM EST Yuan Webber MD POINT OF CARE TEST ORDERABLE S Performing Organization Address City/State/ZIP Code Phon e Number [address] Blood culture (07/09/2017 12:40 AM EST) [facility] [employer] Method Time Signature Blood Culture No growth [place] at 5 days. [facility] LABORATORY Specimen Anatomical [...] [address]/ZIP Code Phon e Number [address] Blood culture (07/09/2017 12:30 AM EST) [facility] [employer] Method Time Signature Blood Culture No growth [place] [facility] at 5 days. [facility] LABORATORY Specimen Anatomical [...] [address]/[place] [address] (ABNORMAL) Urinalysis Microscopic Exam [...] 2 /LPF [facility] LABORATORY Gran Cast UA 1 (H) <=0 /LPF [facility] LABORATORY Uric Ac Bianca Rare (A) None /HPF [facility] LABORATORY Specimen (Source) Anatomical Collection Method Collection Time Re ceived Time Location / / Volume Laterality Urine specimen 07/09/2017 12:05 7 obtained via AM EST 12:39 AM EST indwelling urinary catheter (specimen) Resulting Agency Comment Spec In Lab Yuan Webber MD URINE ORDERABLES Performing Organization Address City/State/ZIP Code Phon e Number [address] (ABNORMAL) Urinalysis with reflex Culture (07/09/2017 12:05 AM EST) Patholo gist Method Time Signature Glucose UA Negative Negative [facility] mg/dL [facility] LABORATORY Protein UA 30 (A) Negative [facility] mg/dL [facility] LABORATORY Bilirubin UA Negative Negative [facility] mg/dL [facility] LABORATORY Comment: Clinical correlation required [...] CARE HOSPITAL LABORATORY Leukocytes UA Negative Negative [facility] LABORATORY Appearance UA Hazy (A) Clear [facility] LABORATORY Spec [place] UA 1.025 1.002 - 1.030 [facility] LABORATORY Color UA Yellow Yellow [facility] LABORATORY Culture Reflexed No [facility] LABORATORY Specimen (Source) Anatomical Collection Method Collection Time Re ceived Time Location / / Volume Laterality Urine specimen 07/09/2017 12:05 7 obtained via AM EST 12:39 AM EST indwelling urinary catheter (specimen) Resulting Agency Comment Spec In Lab Yuan Webber MD URINE ORDERABLES Performing Organization Address City/State/ZIP Code Phon e Number [place] [id number] [facility] LABORATORY Drive POCT Glucose (07/08/2017 11:01 PM EST) P athologist Signature POC Glucose 191 65 - 199 [facility] mg/dL [facility] LABORATORY Comment: Supplemental ranges: <140 mg/dL before meals <180 mg/dL all other times of the day Specimen Anatomical Collection Method Collection Time Receive d Time (Source) Location / / Volume Laterality Blood specimen 07/08/2017 11:01 7 (specimen) PM EST 11:01 PM EST Yuan Webber MD POINT OF CARE TEST ORDERABLE S Performing Organization Address City/State/[place] [address] POCT Glucose (07/08/2017 10:04 PM EST) P athologist Signature POC Glucose 198 65 - 199 [facility] mg/dL [facility] LABORATORY Comment: Supplemental ranges: <140 mg/dL before meals <180 mg/dL all other times of the day Specimen Anatomical Collection Method Collection Time Receive d Time (Source) Location / / Volume Laterality Blood specimen 07/08/2017 10:04 7 (specimen) PM EST 10:04 PM EST Yuan Webber MD POINT OF CARE TEST ORDERABLE S Performing Organization Address City/State/[place] [address] Prepare Albumin 5% in [...] Address City/State/ZIP Code Phon e Number [address] POCT Glucose (07/08/2017 8:28 PM EST) P athologist Signature POC Glucose 195 65 - 199 [facility] mg/dL [facility] LABORATORY Comment: Supplemental ranges: <140 [...] [address]/[place] [address] (ABNORMAL) POCT Glucose (07/08/2017 7:13 PM EST) P athologist Signature POC Glucose 220 (H) 65 - 199 [facility] mg/dL [facility] LABORATORY Comment: Supplemental ranges: <140 [...] [address]/[place] [address] POCT Glucose (07/08/2017 5:04 PM EST) P athologist Signature POC Glucose 147 65 - 199 [facility] mg/[facility] LABORATORY Comment: Supplemental ranges: <140 mg/dL before meals <180 mg/dL all other times of the day Specimen Anatomical Collection Method Collection Time Receive d Time (Source) Location / / Volume Laterality Blood specimen 07/08/2017 5:04 PM 017 5:04 (specimen) EST PM EST Yuan Webber MD POINT OF CARE TEST ORDERABLE S Performing Organization Address City/State/[place] [address] (ABNORMAL) BLOOD GAS 2 ARTERIAL (07/08/2017 4:13 PM EST) Analysis Performed At Patho logist Time Signature pH Art 7.38 7.35 - [facility] [facility] 7.45 [facility]OR[facility]ORY pCO2 Art 36 35 - 45 [facility] LABORATORY pO2 Art 91 85 - 104 [facility] LABORATORY HCO3 Art 20.9 20.0 - [facility] 26.0 [facility] mmol/L [facility] LABORATORY BE Art -4.2 (L) -3.0 - 3.0 [facility] mmol/L [facility] Hgb Blood Gas 11.7 (L) 13.7 - [facility] 16.5 gm/dL [facility] O2HB Art 95.1 94.0 - [facility] 97.0 % [facility] COHB Art 0.6 % [place] [facility] FIO2 Art 40 % [facility]ATORY PF Ratio Art 228 [facility] LABORATORY Specimen Anatomical Collection Method Collection Time Receive d Time (Source) Location / / Volume Laterality Blood specimen 07/08/2017 4:13 PM 017 4:13 (specimen) EST PM EST Yuan Webber MD CHEMISTRY ORDERABLES Performing Organization Address City/State/[place] [address] POCT Glucose (07/08/2017 4:01 PM EST) athologist Signature POC Glucose 148 65 - 199 [place] mg/dL [facility] Comment: Supplemental ranges: <140 mg/dL before meals <180 mg/dL all other times of the day Specimen Anatomical Collection Method Collection Time Receive d Time (Source) Location / / Volume Laterality Blood specimen 07/08/2017 4:01 PM 017 4:01 (specimen) EST PM EST Yuan Webber MD POINT OF CARE TEST ORDERABLE S Performing Organization Address City/State/ZIP Code Phon e Number [address] POCT Glucose (07/08/2017 3:21 PM EST) athologist Signature POC Glucose 118 65 - 199 [facility] mg/dL [facility] Comment: Supplemental ranges: <140 mg/dL before meals <180 mg/dL all other times of the day Specimen Anatomical Collection Method Collection Time Receive d Time (Source) Location / / Volume Laterality Blood specimen 07/08/2017 3:21 PM 017 3:21 (specimen) EST PM EST Yuan Webber MD POINT OF CARE TEST ORDERABLE S Performing Organization Address City/State/ZIP Code Phon e Number [address] POCT Glucose (07/08/2017 2:01 PM EST) athologist Signature POC Glucose 129 65 - 199 [place] mg/dL [facility] Comment: Supplemental ranges: <140 mg/dL before meals <180 mg/dL all other times of the day Specimen Anatomical Collection Method Collection Time Receive d Time (Source) Location / / Volume Laterality Blood specimen 07/08/2017 2:01 PM 017 2:01 (specimen) EST PM EST Yuan Webber MD POINT OF CARE TEST ORDERABLE S Performing Organization Address City/State/ZIP Code Phon e Number [address] POCT Glucose (07/08/2017 11:53 AM EST) athologist Signature POC Glucose 156 65 - 199 [facility] Comment: Supplemental ranges: <140 mg/dL before meals <180 mg/dL all other times of the day Specimen Anatomical Collection Method Collection Time Receive d Time (Source) Location / / Volume Laterality Blood specimen 07/08/2017 11:53 7 (specimen) AM EST 11:53 AM EST Yuan Webber MD POINT OF CARE TEST ORDERABLE S Performing Organization Address City/State/[place] [address] POCT Glucose (07/08/2017 11:04 AM EST) athologist Signature POC Glucose 181 65 - 199 [facility]dL [facility] Comment: Supplemental ranges: <140 [...] [address]/[place] [address] (ABNORMAL) POCT Glucose (07/08/2017 9:24 AM EST) athologist Signature POC Glucose 203 (H) 65 - 199 [facility]/dL [facility] Comment: Supplemental ranges: <140 mg/dL before meals <180 mg/dL all other times of the day Specimen Anatomical Collection Method Collection Time Receive d Time (Source) Location / / Volume Laterality Blood specimen 07/08/2017 9:24 AM 017 9:24 (specimen) EST AM EST Yuan Webber MD POINT OF CARE TEST ORDERABLE S Performing Organization Address City/State/[place] [address] APTT (07/08/2017 8:40 AM [...] [address]/[place] [address] (ABNORMAL) Prothrombin Time (07/08/2017 [...] Organization Address City/State/[place] [address] (ABNORMAL) POCT Glucose (07/08/2017 7:38 AM EST) athologist Signature POC Glucose 232 (H) 65 - 199 [facility] mg/dL [facility] Comment: Supplemental ranges: <140 mg/dL before meals <180 mg/dL all other times of the day Specimen Anatomical Collection Method Collection Time Receive d Time (Source) Location / / Volume Laterality Blood specimen 07/08/2017 7:38 AM 017 7:38 (specimen) EST AM EST Yuan Webber MD POINT OF CARE TEST ORDERABLE S Performing Organization Address City/State/[place] [address] (ABNORMAL) POCT Glucose (07/08/2017 7:07 AM EST) athologist Signature POC Glucose 234 (H) 65 - 199 [place] mg/dL [facility] Comment: Supplemental ranges: <140 mg/dL before meals <180 mg/dL all other times of the day Specimen Anatomical Collection Method Collection Time Receive d Time (Source) Location / / Volume Laterality Blood specimen 07/08/2017 7:07 AM 017 7:07 (specimen) EST AM EST Yuan Webber MD POINT OF CARE TEST ORDERABLE S Performing Organization Address City/State/[place] [address] (ABNORMAL) POCT Glucose (07/08/2017 6:04 AM EST) athologist Signature POC Glucose 225 (H) 65 - 199 [place] mg/dL [facility] Comment: Supplemental ranges: <140 mg/dL before meals <180 mg/dL all other times of the day Specimen Anatomical Collection Method Collection Time Receive d Time (Source) Location / / Volume Laterality Blood specimen 07/08/2017 6:04 AM 017 6:04 (specimen) EST AM EST Yuan Webber MD POINT OF CARE TEST ORDERABLE S Performing Organization Address City/State/[place] [address] (ABNORMAL) POCT Glucose (07/08/2017 5:31 AM EST) athologist Signature POC Glucose 216 (H) 65 - 199 [place] mg/dL [facility] Comment: Supplemental ranges: <140 mg/dL before meals <180 mg/dL all other times of the day Specimen Anatomical Collection Method Collection Time Receive d Time (Source) Location / / Volume Laterality Blood specimen 07/08/2017 5:31 AM 017 5:31 (specimen) EST AM EST Yuan Webber MD POINT OF CARE TEST ORDERABLE S Performing Organization Address City/State/[place] [address] (ABNORMAL) POCT Glucose (07/08/2017 4:52 AM EST) P athologist Signature POC Glucose 257 (H) 65 - 199 [facility] mg/dL [facility] Comment: Supplemental ranges: <140 [...] [address]/[place] [address] (ABNORMAL) BLOOD GAS 2 ARTERIAL (07/08/2017 4:04 AM EST) Analysis Performed At Patho logist Time Signature pH Art 7.30 (L) 7.35 - [facility] 7.45 [facility]ORY pCO2 Art 41 35 - 45 [facility] mmHg [facility] pO2 Art 83 (L) 85 - 104 [facility] mmHg [facility] HCO3 Art 19.6 (L) 20.0 - [facility] 26.0 [facility] mmol/L [facility] LABORAT[facility] BE Art -6.8 (L) -3.0 - 3.0 [facility] mmol/L [facility]ORY Hgb Blood Gas 12.2 (L) 13.7 - [facility] 16.5 gm/dL [facility] O2HB Art 93.5 (L) 94.0 - [facility] 97.0 % [facility] COHB Art 0.4 % [...] [facility] Comment: Noted by chemical instrumentation officer. FIO2 Art 40 % [facility]OR[facility]ORY PF Ratio Art 208 [facility] LABOR[facility]ORY Specimen Anatomical Collection Method Collection Time Receive d Time (Source) Location / / Volume Laterality Blood specimen 07/08/2017 4:04 AM 017 4:04 (specimen) EST AM EST Daphne Shahid MD CHEMISTRY ORDERABLES Performing Organization Address City/[facility] [address]/[place] [address] Scan, Peripheral Blood (07/08/2017 [...] [address]/[place] [address] (ABNORMAL) Differential, Automated (07/08/2017 4:00 AM EST) [facility] Method Time Signature Neutrophils % 85.4 % [facility] LABORATORY Neutr Abs (ANC) 16.07 (H) 1.70 - [facility] 6.10 [facility] x10(3)/[facility] LABORATORY Lymphocytes % 3.5 % [facility] LABORATORY Lymphocytes Abs 0.6 (L) 0.9 - 3.2 [facility] x10(3)/[facility] LABORATORY Monocytes % 10.4 % [facility] LABORATORY Monocyte Abs 2.0 (H) 0.3 - 0.9 [facility] x10(3)/[facility] LABORATORY Eosinophils % 0.0 % [facility] LABORATORY Eosinophils Abs 0.0 0.0 - 0.4 [facility] x10(3)/[facility] LABORATORY Basophils % 0.1 % [facility] LABORATORY Basophils Abs 0.0 0.0 - 0.1 [facility] x10(3)/[facility] LABORATORY Immature Gran % 0.60 % [place] [...] Abs 0.12 (H) 0.00 - 0.04 x10(3)/[facility] LABORATORY Specimen Anatomical Collection Method Collection Time Receive d Time (Source) Location / / Volume Laterality Blood specimen 07/08/2017 4:00 AM 017 4:09 (specimen) EST AM EST Resulting Agency Comment Spec In Lab Yuan Webber MD HEMATOLOGY ORDERABLES Performing Organization Address City/State/[place] [address] (ABNORMAL) Hemogram (07/08/2017 4:00 AM EST) Analysis Performed At Patho logist Time Signature WBC 18.8 (H) 4.0 - 9.5 [facility] x[facility](3)/[facility] LABORATORY RBC 4.00 (L) 4.58 - [facility] 5.54 [facility] x10(6)/[facility] LABORATORY Hemoglobin 11.9 (L) 13.7 - [facility] 16.5 gm/dL [facility]ORY Hematocrit 35.9 (L) 40.5 - [facility] 48.5 % [facility] MCV 89.8 82.9 - [facility] 93.1 [facility] LABORATORY MCH 29.8 27.5 - [facility] 32.1 pg [facility]ATORY MCHC 33.1 32.0 - [facility] 35.7 gm/dL [facility] LABOR[facility]ORY Platelets 232 145 - 357 [facility] x10(3)/[facility] LABORATORY RDWSD 47.6 (H) 36.0 - [place] 45.0 [facility] LABORATORY RDWCV 14.5 (H) 11.4 - [facility] 13.8 % [facility] LABORATORY MPV 9.5 7.6 - 12.9 [facility] nRBC % Auto 0.0 % [facility] LABORATORY nRBC Abs Auto 0.000 0.000 - [place] 0.000 [facility] x10(3)/[facility] LABORATORY Specimen Anatomical Collection Method Collection Time Receive d Time (Source) Location / / Volume Laterality Blood specimen 07/08/2017 4:00 AM 017 4:09 (specimen) EST AM EST Resulting Agency Comment Spec In Lab Yuan Webber MD HEMATOLOGY ORDERABLES Performing Organization Address City/State/[place] [address] (ABNORMAL) Electrolytes panel (07/08/2017 4:00 AM EST) P athologist Signature Sodium 139 135 - 145 [facility] mmol/L [facility] LABORATORY Potassium 4.7 3.5 - 5.0 [facility] mmol/L [facility] Comment: result rechecked-JLK Please [...] Organization Address City/State/[place] [address] (ABNORMAL) Cardiac Enzymes (LEB/CGP) (07/08/2017 4:00 AM EST) P athologist Signature Troponin-T 1.88 (H) 0.00 - [facility] 0.00 ng/mL [facility] LABORATORY Comment: The 99th percentile [...] additional sample may be indicated. Reference: Third [place] Definition of Myocardial Infarction. Journal of the [...] [address]/ZIP Code Phon e Number [address] (ABNORMAL) Glucose, fasting (07/08/2017 4:00 AM EST) athologist Signature Glucose 287 (H) 65 - 99 [facility] Fasting mg/dL [facility] LABORATORY Comment: ?Fasting* Glucose Interpretive [...] [facility] [address]/ZIP [facility] [place] [address] (ABNORMAL) Creatinine (07/08/2017 4:00 AM EST) Analysis Performed At Patho logist Time Signature Creatinine 1.55 (H) 0.80 - [facility] 1.50 mg/dL [facility]OR[facility]ORY Estimated GFR 44 (L) >=60 [facility] LABORATORY Comment: The reported eGFR should be multiplied b y 1.2 for patients. The MDRD is not an appropriate measure o f renal function for patients with body mass extremes or in patients with acute kidney failure. http://PinPay/DHnkdep http://PinPay/DHMCnkf Specimen Anatomical Collection Method Collection Time Receive d Time (Source) Location / / Volume Laterality Blood specimen 07/08/2017 4:00 AM 017 4:09 (specimen) EST AM EST Resulting Agency Comment Spec In Lab Yuan Webber MD CHEMISTRY ORDERABLES Performing Organization Address City/[facility] [address]/ZIP [facility] Phon e Number [address] BUN (07/08/2017 4:00 AM EST) P athologist Signature BUN 16 10 - 20 [facility] mg/dL [facility] LABOR[facility]ORY Specimen Anatomical Collection Method Collection Time Receive d Time (Source) Location / / Volume Laterality Blood specimen 07/08/2017 4:00 AM 017 4:09 (specimen) EST AM EST Resulting Agency Comment Spec In Lab Yuan Webber MD CHEMISTRY ORDERABLES Performing Organization Address City/[facility] [address]/ZIP [facility] [place] [address] (ABNORMAL) POCT Glucose (07/08/2017 3:00 AM EST) P athologist Signature POC Glucose 273 (H) 65 - 199 [facility] mg/dL [facility] Comment: Supplemental ranges: <140 mg/dL before meals <180 mg/dL all other times of the day Specimen Anatomical Collection Method Collection Time Receive d Time (Source) Location / / Volume Laterality Blood specimen 07/08/2017 3:00 AM 017 3:00 (specimen) EST AM EST Daphne Shahid MD POINT OF CARE TEST ORDERABLE S Performing Organization Address City/State/[place] [address] (ABNORMAL) POCT Glucose (07/08/2017 1:57 AM EST) athologist Signature POC Glucose 288 (H) 65 - 199 [facility] mg/dL [facility] Comment: Supplemental ranges: <140 mg/dL before meals <180 mg/dL all other times of the day Specimen Anatomical Collection Method Collection Time Receive d Time (Source) Location / / Volume Laterality Blood specimen 07/08/2017 1:57 AM 017 1:57 (specimen) EST AM EST Daphne Shahid MD POINT OF CARE TEST ORDERABLE S Performing Organization Address City/State/[place] [address] (ABNORMAL) POCT Glucose (07/08/2017 1:01 AM EST) athologist Signature POC Glucose 315 (H) 65 - 199 [facility] mg/dL [facility] Comment: Supplemental ranges: <140 mg/dL before meals <180 mg/dL all other times of the day Specimen Anatomical Collection Method Collection Time Receive d Time (Source) Location / / Volume Laterality Blood specimen 07/08/2017 1:01 AM 017 1:01 (specimen) EST AM EST Daphne Shahid MD POINT OF CARE TEST ORDERABLE S Performing Organization Address City/State/[place] [address] (ABNORMAL) BLOOD GAS 2 ARTERIAL (07/08/2017 12:09 AM EST) athologist Signature pH Art 7.26 7.35 - [facility] (Critical) 7.45 [facility] Comment: Noted by chemical instrumentation officer. pCO2 Art 41 35 - 45 mmHg [...] [facility] LABORATORY COHB Art 0.2 % [facility] Comment: Noted by chemical instrumentation officer. FIO2 Art 40 % [facility] LABORATORY PF Ratio Art 240 [facility] LABORATORY Specimen Anatomical Collection Method Collection Time Receive d Time (Source) Location / / Volume Laterality Blood specimen Arterial Draw / 07/08/2017 12:09 2016 5:31 (specimen) Unknown AM EST AM EST Resulting Agency Comment Spec In Lab Samy Maldonado MD CHEMISTRY ORDERABLES Performing Organization Address City/State/[place] [address] (ABNORMAL) POCT Glucose (07/07/2017 10:56 PM EST) athologist Signature POC Glucose 292 (H) 65 - 199 [facility] mg/dL [facility] Comment: Supplemental ranges: <140 mg/dL before meals <180 mg/dL all other times of the day Specimen Anatomical Collection Method Collection Time Receive d Time (Source) Location / / Volume Laterality Blood specimen 07/07/2017 10:56 7 (specimen) PM EST 10:56 PM EST Daphne Shahid MD POINT OF CARE TEST ORDERABLE S Performing Organization Address City/State/[place] [address] (ABNORMAL) BLOOD GAS 2 ARTERIAL (07/07/2017 10:04 PM EST) athologist Signature pH Art 7.22 7.35 - [facility] (Critical) 7.45 [facility] Comment: Noted by chemical instrumentation officer. pCO2 Art 42 35 - 45 mmHg [...] [facility] COHB Art 0.7 % [facility] Comment: Noted by chemical instrumentation officer. FIO2 Art 40 % [facility] LABORATORY PF Ratio Art 235 [facility] LABOR[facility]ORY Specimen Anatomical Collection Method Collection Time Receive d Time (Source) Location / / Volume Laterality Blood specimen 07/07/2017 10:04 7 (specimen) PM EST 10:04 PM EST Daphne Shahid MD CHEMISTRY ORDERABLES Performing Organization Address City/State/ZIP Code Phon e Number [address] (ABNORMAL) Hemoglobin (07/07/2017 10:00 PM EST) P athologist Signature Hemoglobin 12.8 (L) 13.7 - [facility] 16.5 gm/dL [facility] LABORATORY Specimen Anatomical Collection Method Collection Time Receive d Time (Source) Location / / Volume Laterality Blood specimen 07/07/2017 10:00 7 (specimen) PM EST 10:13 PM EST Resulting Agency Comment Spec In Lab Yuan Webber MD HEMATOLOGY ORDERABLES Performing Organization Address City/State/ZIP Code Phon e Number [address] (ABNORMAL) Potassium (07/07/2017 10:00 PM EST) P athologist Signature Potassium 3.4 (L) 3.5 - 5.0 [facility] mmol/L [facility] LABORATORY Comment: Please note: ??Patients [...] [address]/[place] [address] (ABNORMAL) POCT Glucose (07/07/2017 8:49 PM EST) athologist Signature POC Glucose 241 (H) 65 - 199 [facility] mg/dL [facility] LABORATORY Comment: Supplemental ranges: <140 [...] [address]/[place] [address] Prepare Albumin 5% in [...] [address]/[place] [address] EKG 12 Lead (07/07/2017 7:17 PM EST) Component Value Ref Range Test Analysis Performed Pathologis t Method Time At Signature Ventricular rate 75 BPM MUSE SYSTEM Atrial Rate 75 BPM MUSE SYSTEM P-R Interval 168 ms MUSE SYSTEM QRS Duration 104 ms MUSE SYSTEM Q-T Interval 462 ms MUSE SYSTEM QTC Calculated 515 ms MUSE SYSTEM (Bezet) Calculated P [place] 52 degrees MUSE SYSTEM Calculated R [place] -40 degrees MUSE SYSTEM Calculated T [place] 39 degrees MUSE SYSTEM INTERPRETATION Normal sinus [...] athologist Signature pH Art 7.21 7.35 - [facility] (Critical) 7.45 [facility] LABORATORY Comment: Noted by chemical instrumentation officer. pCO2 Art 50 (H) 35 - 45 [...] [facility] COHB Art 0.5 % [facility] LABORATORY Comment: Nonsmokers: 0.5-1.5% COHB Smokers: Variable, but usually less than 10% Toxic: 20-30% COHB Lethal: Greater than 60% COHB METHB Art 0.7 <=1.5 % [facility] LABORATORY Na Whole Blood 140 135 - 145 mmol/L [facility] LABORATORY K Whole Blood 3.0 (Critical) 3.5 - 5.0 mmol/L [facility] LABORATORY Comment: Noted by chemical instrumentation officer. Please note: Patients with WBC >100,000 may [...] [facility] Comment: Noted by chemical instrumentation officer. FIO2 Art 100 % [facility] LABORATORY PF Ratio Art 238 [facility] LABORATORY Specimen Anatomical Collection Method Collection Time Receive d Time (Source) Location / / Volume Laterality Blood specimen 07/07/2017 6:57 PM 017 6:57 (specimen) EST PM EST Daphne Shahid MD CHEMISTRY ORDERABLES Performing Organization Address City/State/[place] [address] (ABNORMAL) BLOOD GAS 2 ARTERIAL (07/07/2017 5:31 PM EST) P athologist Signature pH Art 7.29 7.35 - [facility] (Critical) 7.45 [facility] LABORATORY Comment: Noted by chemical instrumentation officer. pCO2 Art 48 (H) 35 - 45 [...] [facility] COHB Art 0.3 % [facility] [...] Organization Address City/State/[place] [address] Fibrinogen (07/07/2017 5:30 PM EST) P athologist Signature Fibrinogen 224 180 - 510 [facility] mg/dL [facility] LABORATORY Comment: Called by: JEET, [...] Perez MD HEMATOLOGY ORDERABLES Performing Organization Address [facility] [address]/[facility] Phon e Number [address] APTT (07/07/2017 5:30 PM [...] HEMATOLOGY ORDERABLES Performing Organization Address [facility] [place] [address] (ABNORMAL) Prothrombin Time (07/07/2017 [...] Perez MD HEMATOLOGY ORDERABLES Performing Organization Address [facility] [address]/[place] [address] (ABNORMAL) Hemogram (07/07/2017 5:30 PM EST) athologist Signature WBC 19.6 (H) 4.0 - 9.5 [facility] x10(3)/[facility] LABORATORY RBC 3.08 (L) 4.58 - [facility] 5.54 [facility] x10(6)/[facility] LABORATORY Hemoglobin 9.2 (L) 13.7 - [facility] 16.5 gm/dL [place] Hematocrit 28.0 (L) 40.5 - [facility] 48.5 % [facility] LABORATORY Comment: This result has been called to MONICA WEINSTEIN LUISA by DONALD GROSSMAN on 07 07 2017 at 1759, and has been read back. MCV 90.9 82.9 - 93.1 [facility] LABORATORY MCH 29.9 27.5 - 32.1 pg [facility] LABORATORY MCHC 32.9 32.0 - 35.7 gm/dL [facility] LABORATORY Platelets 155 145 - 357 x10(3)/[facility] LABORATORY RDWSD 46.5 (H) 36.0 - 45.0 [facility] LABORATORY RDWCV 14.1 (H) 11.4 - 13.8 % [facility] LABORATORY MPV 9.5 7.6 - 12.9 [facility] LABORATORY nRBC % Auto 0.0 % [facility] LABORATORY nRBC Abs Auto 0.000 0.000 - 0.000 x10(3)/[facility] LABORATORY Specimen Anatomical Collection Method Collection Time Receive d Time (Source) Location / / Volume Laterality Blood specimen 07/07/2017 5:30 PM 017 5:34 (specimen) EST PM EST Resulting Agency Comment Spec In Lab Yifan Perez MD HEMATOLOGY ORDERABLES Performing Organization Address City/State/[place] [address] Prepare Platelets, Apheresis (07/07/2017 5:00 PM EST) P athologist Signature Dispensed? Yes [facility] LABORATORY Specimen Anatomical Collection Method Collection Time Receive d Time (Source) Location / / Volume Laterality Blood specimen 07/07/2017 5:00 PM 017 4:58 (specimen) EST PM EST Daphne Shahid MD BLOOD BANK ORDERABLES Performing Organization Address City/State/[place] [address] Platelet count (07/07/2017 4:55 PM EST) athologist Signature Platelets 177 145 - 357 [facility] x10(3)/[facility] LABORATORY Plat Immature 1.5 0.0 - 7.4 [facility] % % [facility] LABORATORY Comment: Limitation of the Immature Platelet Frac tion (IPF)-May be less reliable when the platelet count is less than 32e438/u L due to statistical imprecision. The IPF [...] in a decreased state of production. References: [employer] The Clinical Value of the Immature Platelet Fraction (IPF) in Cell Recovery Document Number [id number] 12/2010 [employer] The Role of the Imm ature Platelet Fraction (IPF) in the Differential Diagnosis of Thrombocytopen ia, Document [id number] V012/04/13 P012/06 Specimen Anatomical Collection Method Collection Time Receive d Time (Source) Location / / Volume Laterality Blood specimen 07/07/2017 4:55 PM 017 5:13 (specimen) EST PM EST Resulting Agency Comment Spec In Lab Daphne Sahhid MD HEMATOLOGY ORDERABLES Performing Organization Address City/[facility] [address]/[place] [address] (ABNORMAL) Hemoglobin and Hematocrit, blood (07/07/2017 4:55 PM EST) P athologist Signature Hemoglobin 9.1 (L) 13.7 - 16.5 [facility] gm/dL [facility] LABORATORY Comment: This result has [...] [address]/[place] [address] (ABNORMAL) BLOOD GAS 2 ARTERIAL (07/07/2017 4:38 PM EST) Analysis Performed At Patho logist Time Signature pH Art 7.37 7.35 - [facility] 7.45 [facility] LABORATORY pCO2 Art 44 35 - 45 [facility] mmHg [facility] LABORATORY pO2 Art 322 (H) 85 - 104 [facility] mmHg [facility] LABORATORY HCO3 Art 24.9 20.0 - [facility] 26.0 [facility] mmol/L [facility] LABORATORY BE Art -0.4 -3.0 - 3.0 [facility] mmol/L [facility] LABORATORY Hgb Blood Gas 10.1 (L) 13.7 - [facility] 16.5 gm/dL [facility] LABORATORY O2HB Art 98.7 (H) 94.0 - [facility] 97.0 % [facility] LABORATORY COHB Art 0.1 % [facility] Comment: Noted by chemical instrumentation officer. Note: ??Total bilirubin higher than 20 m [...] Organization Address City/State/[place] [address] (ABNORMAL) BLOOD GAS 2 VENOUS (07/07/2017 4:06 PM EST) Analysis Performed At Patho logist Time Signature pH Cody 7.31 (L) 7.32 - [facility] 7.42 [facility] LABORATORY pCO2 Cody 47 41 - 51 [facility] LABORATORY pO2 Cody 53 (H) 25 - 40 [facility] LABORATORY HCO3 Cody 22.7 mmol/L [facility] LABORATORY BE Cody -3.7 mmol/L [facility] LABORATORY Hgb Blood Gas 10.2 (L) 13.7 - [facility] 16.5 gm/dL [facility] LABORATORY O2HB Cody 81.0 % [facility] [facility] Comment: Noted by chemical instrumentation officer. Note: ??Total bilirubin higher than 20 m g/dL may lead to falsely low ionized calcium. CL Whole Blood 100 98 - 107 mmol/L [facility] LABORATORY Gluc Whole Bld 231 (H) 65 - 199 mg/dL [facility] LABORATORY Comment: Diabetes: >=200 mg/dL plus symp toms Lactate WB 1.1 0.5 - 2.2 mmol/L [facility] LABORATORY BGas Source Venous [facility] LABORATORY Specimen Anatomical Collection Method Collection Time Receive d Time (Source) Location / / Volume Laterality Blood specimen 07/07/2017 4:06 PM 017 4:06 (specimen) EST PM EST Daphne Shahid MD CHEMISTRY ORDERABLES Performing Organization Address City/State/[place] [address] (ABNORMAL) BLOOD GAS 2 ARTERIAL (07/07/2017 4:05 PM EST) Analysis Performed At Patho logist Time Signature pH Art 7.36 7.35 - [facility] 7.45 [facility] LABORATORY pCO2 Art 40 35 - 45 [facility] LABORATORY pO2 Art 282 (H) 85 - 104 [facility] LABORATORY HCO3 Art 22.1 20.0 - [facility] 26.0 [facility] mmol/L [facility] LABORATORY BE Art -3.4 (L) -3.0 - 3.0 [facility] mmol/L [facility] LABORATORY Hgb Blood Gas 10.2 (L) 13.7 - [facility] 16.5 gm/dL [facility] LABORATORY O2HB Art 98.4 (H) 94.0 - [facility] 97.0 % [facility] LABORATORY COHB Art 0.3 % [...] [facility] Comment: Noted by chemical instrumentation officer. Note: ??Total bilirubin higher than 20 m [...] Organization Address City/State/[place] [address] (ABNORMAL) BLOOD GAS 2 ARTERIAL (07/07/2017 2:29 PM EST) Analysis Performed At Patho logist Time Signature pH Art 7.43 7.35 - [facility] 7.45 [facility] LABORATORY pCO2 Art 36 35 - 45 [facility] LABORATORY pO2 Art 221 (H) 85 - 104 [facility] LABORATORY HCO3 Art 23.2 20.0 - [facility] 26.0 [facility] mmol/L [facility] LABORATORY BE Art -1.2 -3.0 - 3.0 [facility] mmol/L [facility] LABORATORY Hgb Blood Gas 13.9 13.7 - [facility] 16.5 gm/dL [place] O2HB Art 97.8 (H) 94.0 - [facility] 97.0 % [facility] LABORATORY COHB Art 1.1 % [place] [...] Organization Address City/State/[place] [address] Prepare Coag Factors (Non-Hemophilia) [...] Address City/State/ZIP Code Phon e Number [address] Prepare RBC (07/07/2017 1:10 PM EST) athologist Signature Dispensed? Yes [facility] LABORATORY Specimen Anatomical Collection Method Collection Time Receive d Time (Source) Location / / Volume Laterality Blood specimen 07/07/2017 1:10 PM 017 1:05 (specimen) EST PM EST Daphne Shahid MD BLOOD BANK ORDERABLES Performing Organization Address City/State/[place] [address] POCT Glucose (07/07/2017 11:56 AM EST) athologist Signature POC Glucose 188 65 - 199 [facility] mg/dL [facility] LABORATORY Comment: Supplemental ranges: <140 mg/dL before meals <180 mg/dL all other times of the day Specimen Anatomical Collection Method Collection Time Receive d Time (Source) Location / / Volume Laterality Blood specimen 07/07/2017 11:56 7 (specimen) AM EST 11:56 AM EST Daphne Shahid MD POINT OF CARE TEST ORDERABLE S Performing Organization Address City/State/[place] [address] POCT Glucose (07/07/2017 11:05 AM EST) athologist Signature POC Glucose 168 65 - 199 [facility] LABORATORY Comment: Supplemental ranges: <140 mg/dL before meals <180 mg/dL all other times of the day Specimen Anatomical Collection Method Collection Time Receive d Time (Source) Location / / Volume Laterality Blood specimen 07/07/2017 11:05 7 (specimen) AM EST 11:05 AM EST Daphne Shahid MD POINT OF CARE TEST ORDERABLE S Performing Organization Address City/State/[place] [address] POCT Glucose (07/07/2017 10:02 AM EST) P athologist Signature POC Glucose 191 65 - 199 [facility] mg/dL [facility] LABORATORY Comment: Supplemental ranges: <140 mg/dL before meals <180 mg/dL all other times of the day Specimen Anatomical Collection Method Collection Time Receive d Time (Source) Location / / Volume Laterality Blood specimen 07/07/2017 10:02 7 (specimen) AM EST 10:02 AM EST Daphne Shahid MD POINT OF CARE TEST ORDERABLE S Performing Organization Address City/State/[place] [address] POCT Glucose (07/07/2017 7:53 AM EST) athologist Signature POC Glucose 178 65 - 199 [facility] mg/dL [facility] LABORATORY Comment: Supplemental ranges: <140 mg/dL before meals <180 mg/dL all other times of the day Specimen Anatomical Collection Method Collection Time Receive d Time (Source) Location / / Volume Laterality Blood specimen 07/07/2017 7:53 AM 017 7:53 (specimen) EST AM EST Daphne Shahid MD POINT OF CARE TEST ORDERABLE S Performing Organization Address City/State/ZIP Code Phon e Number [address] POCT Glucose (07/07/2017 7:03 AM EST) athologist Signature POC Glucose 188 65 - 199 [facility] mg/dL [facility] LABORATORY Comment: Supplemental ranges: <140 mg/dL before meals <180 mg/dL all other times of the day Specimen Anatomical Collection Method Collection Time Receive d Time (Source) Location / / Volume Laterality Blood specimen 07/07/2017 7:03 AM 017 7:03 (specimen) EST AM EST Daphne Shahid MD POINT OF CARE TEST ORDERABLE S Performing Organization Address City/State/[place] [address] (ABNORMAL) POCT Glucose (07/07/2017 6:17 AM EST) athologist Signature POC Glucose 207 (H) 65 - 199 [facility] mg/dL [facility] LABORATORY Comment: Supplemental ranges: <140 [...] [address]/ZIP Code Phon e Number [address] Differential, Automated (07/07/2017 5:15 AM EST) athologist Signature Neutrophils % 69.7 % [facility] LABORATORY Neutr Abs (ANC) 5.32 1.70 - [facility] 6.10 [facility] x10(3)/[facility] LABORATORY Lymphocytes % 16.3 % [facility] LABORATORY Lymphocytes Abs 1.2 0.9 - 3.2 [facility] x10(3)/[facility] LABORATORY Monocytes % 10.5 % [facility] LABORATORY Monocyte Abs 0.8 0.3 - 0.9 [facility] x10(3)/[facility] LABORATORY Eosinophils % 2.5 % [facility] LABORATORY Eosinophils Abs 0.2 0.0 - 0.4 [facility] x10(3)/[facility] LABORATORY Basophils % 0.7 % [facility] LABORATORY Basophils Abs 0.0 0.0 - 0.1 [facility] x10(3)/[facility] LABORATORY Immature Gran % 0.30 % [...] Abs 0.02 0.00 - 0.04 x10(3)/[facility] LABORATORY Specimen Anatomical Collection Method Collection Time Receive d Time (Source) Location / / Volume Laterality Blood specimen 07/07/2017 5:15 AM 017 5:34 (specimen) EST AM EST Resulting Agency Comment Spec In Lab Daphne Shahid MD HEMATOLOGY ORDERABLES Performing Organization Address City/State/[place] [address] (ABNORMAL) Hemogram (07/07/2017 5:15 AM EST) Analysis Performed At Patho logist Time Signature WBC 7.6 4.0 - 9.5 [facility] x10(3)/[facility] LABORATORY RBC 4.82 4.58 - [facility] 5.54 [facility] x10(6)/[facility] Hemoglobin 14.4 13.7 - [facility] 16.5 gm/dL [facility] LABORATORY Hematocrit 42.1 40.5 - [facility] 48.5 % [facility] LABORATORY MCV 87.3 82.9 - [facility] 93.1 [facility] LABORATORY MCH 29.9 27.5 - [facility] 32.1 pg [facility] LABORATORY MCHC 34.2 32.0 - [facility] 35.7 gm/dL [facility] LABORATORY Platelets 188 145 - 357 [facility] x10(3)/[facility] LABORATORY RDWSD 45.1 (H) 36.0 - [facility] 45.0 [facility] LABORATORY RDWCV 14.3 (H) 11.4 - [facility] 13.8 % [facility] LABORATORY MPV 9.4 7.6 - 12.9 [facility] LABORATORY nRBC % Auto 0.0 % [facility] LABORATORY nRBC Abs Auto 0.000 0.000 - [facility] 0.000 [facility] x10(3)/[facility] LABORATORY Specimen Anatomical Collection Method Collection Time Receive d Time (Source) Location / / Volume Laterality Blood specimen 07/07/2017 5:15 AM 017 5:34 (specimen) EST AM EST Resulting Agency Comment Spec In Lab Daphne Shahid MD HEMATOLOGY ORDERABLES Performing Organization Address City/[facility] [address]/[place] [address] (ABNORMAL) APTT (07/07/2017 5:15 [...] [address]/[place] [address] Magnesium (07/07/2017 5:15 AM EST) athologist Signature Magnesium 0.94 0.69 - 1.07 [facility] mmol/L [facility] LABORATORY Specimen Anatomical Collection Method Collection Time Receive d Time (Source) Location / / Volume Laterality Blood specimen 07/07/2017 5:15 AM 017 5:34 (specimen) EST AM EST Resulting Agency Comment Spec In Lab Daphne Shahid MD CHEMISTRY ORDERABLES Performing Organization Address City/[facility] [address]/[place] [address] (ABNORMAL) Basic Metabolic Panel (non-fasting) (07/07/2017 5:15 AM EST) athologist Signature Glucose Lvl 203 (H) 65 - 199 [facility] mg/dL [facility] LABORATORY [...] CARE HOSPITAL LABORATORY Estimated GFR >60 >=60 [facility] LABORATORY Comment: The reported eGFR should be multiplied b y 1.2 for patients. The MDRD is not an appropriate measure o f renal function for patients with body mass extremes or in patients with acute kidney failure. http://Kanbanize.1,2,3 Listo/DHnkdep http://PinPay/DHMCnkf Specimen Anatomical Collection Method Collection Time Receive d Time (Source) Location / / Volume Laterality Blood specimen 07/07/2017 5:15 AM 017 5:34 (specimen) EST AM EST Resulting Agency Comment Spec In Lab Daphne Shahid MD CHEMISTRY ORDERABLES Performing Organization Address City/State/[place] [address] (ABNORMAL) Cardiac Enzymes (LEB/CGP) (07/07/2017 5:15 AM EST) athologist Signature Troponin-T 2.07 (H) 0.00 - [facility] 0.00 ng/mL [facility] LABORATORY Comment: The 99th percentile [...] additional sample may be indicated. Reference: Third [place] Definition of Myocardial Infarction. Journal of the [place] [employer] 2012;60:1581-98 CK, Total 88 0 - 200 unit/L [facility] LABORATORY Specimen Anatomical Collection Method Collection Time Receive d Time (Source) Location / / Volume Laterality Blood specimen 07/07/2017 5:15 AM 017 5:34 (specimen) EST AM EST Resulting Agency Comment Spec In Lab Daphne Shhaid MD CHEMISTRY ORDERABLES Performing Organization Address City/State/[place] [address] POCT Glucose (07/07/2017 5:01 AM EST) P athologist Signature POC Glucose 182 65 - 199 [facility] mg/dL [facility] LABORATORY Comment: Supplemental ranges: <140 mg/dL before meals <180 mg/dL all other times of the day Specimen Anatomical Collection Method Collection Time Receive d Time (Source) Location / / Volume Laterality Blood specimen 07/07/2017 5:01 AM 017 5:01 (specimen) EST AM EST Daphne Shahid MD POINT OF CARE TEST ORDERABLE S Performing Organization Address City/State/ZIP Code Phon e Number [address] POCT Glucose (07/07/2017 4:08 AM EST) P athologist Signature POC Glucose 199 65 - 199 [facility] mg/dL [facility] LABORATORY Comment: Supplemental ranges: <140 [...] [address]/ZIP Code Phon e Number [address] POCT Glucose (07/07/2017 3:03 AM EST) athologist Signature POC Glucose 188 65 - 199 [facility] mg/dL [facility] LABORATORY Comment: Supplemental ranges: <140 mg/dL before meals <180 mg/dL all other times of the day Specimen Anatomical Collection Method Collection Time Receive d Time (Source) Location / / Volume Laterality Blood specimen 07/07/2017 3:03 AM 017 3:03 (specimen) EST AM EST Daphne Shahid MD POINT OF CARE TEST ORDERABLE S Performing Organization Address City/State/[place] [address] (ABNORMAL) POCT Glucose (07/07/2017 2:08 AM EST) athologist Signature POC Glucose 200 (H) 65 - 199 [facility] mg/dL [facility] LABORATORY Comment: Supplemental ranges: <140 mg/dL before meals <180 mg/dL all other times of the day Specimen Anatomical Collection Method Collection Time Receive d Time (Source) Location / / Volume Laterality Blood specimen 07/07/2017 2:08 AM 017 2:08 (specimen) EST AM EST Daphne Shahid MD POINT OF CARE TEST ORDERABLE S Performing Organization Address City/State/[place] [address] (ABNORMAL) POCT Glucose (07/07/2017 1:31 AM EST) P athologist Signature POC Glucose 209 (H) 65 - 199 [facility] mg/dL [facility] LABORATORY Comment: Supplemental ranges: <140 mg/dL before meals <180 mg/dL all other times of the day Specimen Anatomical Collection Method Collection Time Receive d Time (Source) Location / / Volume Laterality Blood specimen 07/07/2017 1:31 AM 017 1:31 (specimen) EST AM EST Daphne Shahid MD POINT OF CARE TEST ORDERABLE S Performing Organization Address City/State/[place] [address] XR Chest PA or [...] Signature POC Glucose 161 65 - 199 [facility] mg/dL [facility] LABORATORY Comment: Supplemental ranges: <140 [...] [address]/ZIP Code Phon e Number [address] (ABNORMAL) APTT (07/07/2017 12:00 AM EST) athologist [facility] PTT 103 (H) 25 - 35 sec [...] Organization Address City/State/[place] [address] POCT Glucose (07/06/2017 9:55 PM EST) athologist Signature POC Glucose 109 65 - 199 [facility] mg/dL [facility] LABORATORY Comment: Supplemental ranges: <140 mg/dL before meals <180 mg/dL all other times of the day Specimen Anatomical Collection Method Collection Time Receive d Time (Source) Location / / Volume Laterality Blood specimen 07/06/2017 9:55 PM 017 9:55 (specimen) EST PM EST Daphne Shahid MD POINT OF CARE TEST ORDERABLE S Performing Organization Address City/State/ZIP Code Phon e Number [address] POCT Glucose (07/06/2017 9:04 PM EST) athologist Signature POC Glucose 120 65 - 199 [facility] mg/dL [facility] LABORATORY Comment: Supplemental ranges: <140 mg/dL before meals <180 mg/dL all other times of the day Specimen Anatomical Collection Method Collection Time Receive d Time (Source) Location / / Volume Laterality Blood specimen 07/06/2017 9:04 PM 017 9:04 (specimen) EST PM EST Daphne Shahid MD POINT OF CARE TEST ORDERABLE S Performing Organization Address City/State/[place] [address] POCT Glucose (07/06/2017 7:45 PM EST) athologist Signature POC Glucose 158 65 - 199 [facility] mg/dL [facility] LABORATORY Comment: Supplemental ranges: <140 [...] [address]/[place] [address] Potassium (07/06/2017 7:40 PM EST) athologist Signature Potassium 3.9 3.5 - 5.0 [facility] mmol/L [facility] LABORATORY Comment: Please note: ??Patients [...] Organization Address City/State/[place] [address] (ABNORMAL) Cardiac Enzymes (LEB/CGP) (07/06/2017 7:40 PM EST) athologist Signature Troponin-T 2.27 (H) 0.00 - [facility] 0.00 ng/mL [facility] LABORATORY Comment: The 99th percentile [...] additional sample may be indicated. Reference: Third [place] Definition of Myocardial Infarction. Journal of the [...] Organization Address City/State/[place] [address] (ABNORMAL) POCT Glucose (07/06/2017 7:13 PM EST) P athologist Signature POC Glucose 200 (H) 65 - 199 [facility] mg/dL [facility] LABORATORY Comment: Supplemental ranges: <140 mg/dL before meals <180 mg/dL all other times of the day Specimen Anatomical Collection Method Collection Time Receive d Time (Source) Location / / Volume Laterality Blood specimen 07/06/2017 7:13 PM 017 7:13 (specimen) EST PM EST Daphne Shahid MD POINT OF CARE TEST ORDERABLE S Performing Organization Address City/State/ZIP Code Phon e Number [address] (ABNORMAL) APTT (07/06/2017 6:15 PM EST) athologist [facility] [place] PTT 94 (H) 25 - 35 sec [...] Organization Address City/State/[place] [address] (ABNORMAL) POCT Glucose (07/06/2017 6:03 PM EST) athologist Signature POC Glucose 236 (H) 65 - 199 [facility] mg/dL [facility] LABORATORY Comment: Supplemental ranges: <140 mg/dL before meals <180 mg/dL all other times of the day Specimen Anatomical Collection Method Collection Time Receive d Time (Source) Location / / Volume Laterality Blood specimen 07/06/2017 6:03 PM 017 6:03 (specimen) EST PM EST Daphne Shahid MD POINT OF CARE TEST ORDERABLE S Performing Organization Address City/State/[place] [address] (ABNORMAL) POCT Glucose (07/06/2017 5:01 PM EST) P athologist Signature POC Glucose 235 (H) 65 - 199 [facility] mg/dL [facility] LABORATORY Comment: Supplemental ranges: <140 [...] [address]/[place] [address] (ABNORMAL) POCT Glucose (07/06/2017 4:06 PM EST) athologist Signature POC Glucose 202 (H) 65 - 199 [facility] mg/dL [facility] LABORATORY Comment: Supplemental ranges: <140 mg/dL before meals <180 mg/dL all other times of the day Specimen Anatomical Collection Method Collection Time Receive d Time (Source) Location / / Volume Laterality Blood specimen 07/06/2017 4:06 PM 017 4:06 (specimen) EST PM EST Daphne Shahid MD POINT OF CARE TEST ORDERABLE S Performing Organization Address City/State/[place] [address] POCT Glucose (07/06/2017 2:59 PM EST) P athologist Signature POC Glucose 178 65 - 199 [place] mg/dL [facility] Comment: Supplemental ranges: <140 [...] [address]/[place] [address] (ABNORMAL) Cardiac Enzymes (LEB/CGP) (07/06/2017 2:10 PM EST) P athologist Signature Troponin-T 2.34 (H) 0.00 - [facility] ng/mL [facility] Comment: The 99th percentile [...] additional sample may be indicated. Reference: Third [place] Definition of Myocardial Infarction. Journal of the [...] [address]/[place] [address] POCT Glucose (07/06/2017 2:08 PM EST) P athologist Signature POC Glucose 192 65 - 199 [place]YAN mg/dL [facility] Comment: Supplemental ranges: <140 mg/dL before meals <180 mg/dL all other times of the day Specimen Anatomical Collection Method Collection Time Receive d Time (Source) Location / / Volume Laterality Blood specimen 07/06/2017 2:08 PM 017 2:08 (specimen) EST PM EST Daphne Shahid MD POINT OF CARE TEST ORDERABLE S Performing Organization Address City/State/ZIP Code Phon e Number [address] POCT Glucose (07/06/2017 1:04 PM EST) athologist Signature POC Glucose 162 65 - 199 [facility] Comment: Supplemental ranges: <140 mg/dL before meals <180 mg/dL all other times of the day Specimen Anatomical Collection Method Collection Time Receive d Time (Source) Location / / Volume Laterality Blood specimen 07/06/2017 1:04 PM 017 1:04 (specimen) EST PM EST Daphne Shahid MD POINT OF CARE TEST ORDERABLE S Performing Organization Address City/State/ZIP Code Phon e Number [address] POCT Glucose (07/06/2017 12:05 PM EST) athologist Signature POC Glucose 196 65 - 199 [facility] Comment: Supplemental ranges: <140 mg/dL before meals <180 mg/dL all other times of the day Specimen Anatomical Collection Method Collection Time Receive d Time (Source) Location / / Volume Laterality Blood specimen 07/06/2017 12:05 7 (specimen) PM EST 12:05 PM EST Daphne Shahid MD POINT OF CARE TEST ORDERABLE S Performing Organization Address City/State/ZIP Code Phon e Number [address] EKG 12 Lead (07/06/2017 12:00 PM EST) Component Value Ref Range Test Analysis Performed Pathologis t Method Time At Signature Ventricular rate 91 BPM MUSE SYSTEM Atrial Rate 91 BPM MUSE SYSTEM P-R Interval 140 ms MUSE SYSTEM QRS Duration 94 ms MUSE SYSTEM Q-T Interval 394 ms MUSE SYSTEM QTC Calculated 484 ms MUSE SYSTEM (Bezet) Calculated P [place] 36 degrees MUSE SYSTEM Calculated R [place] -19 degrees MUSE SYSTEM Calculated T [place] 104 degrees MUSE SYSTEM INTERPRETATION Normal sinus rhythm MUSE SYSTEM 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) ST & T wave abnormality, consider lateral ischemia Abnormal ECG When compared with ECG of 05-JUL-2017 20:39, No significant change was found Confirmed by MD Luci, Taurus Braun ([id number]) on 07/06/2017 5:07:33 PM Specimen Anatomical Collection Method Collection Time Receive d Time (Source) Location / / Volume Laterality 07/06/2017 12:00 07/06/2017 5:07 PM EST PM EST Daphne Shahid MD ECG ORDERABLES Performing Organization Address City/[facility] [address]/ZIP Code Phon e Number MUSE SYSTEM ABORH Recheck Status (07/06/2017 12:00 PM EST) [facility] Method Time Signature ABORH Type Completed [facility] LABORATORY Specimen Anatomical Collection Method Collection Time Receive d Time (Source) Location / / Volume Laterality Blood specimen 07/06/2017 12:00 7 (specimen) PM EST 12:24 PM EST Resulting Agency Comment Spec In Lab Daphne Shahid MD BLOOD BANK ORDERABLES Performing Organization Address City/[facility] [address]/[place] [address] Antibody screen (07/06/2017 12:00 PM EST) [facility] [employer] Method Time Signature Ab Screen Negative [facility] LABORATORY Expires at 07/09/2017 [facility] [id number] on: [facility] Specimen Anatomical Collection Method Collection Time Receive d Time (Source) Location / / Volume Laterality Blood specimen 07/06/2017 12:00 7 (specimen) PM EST 12:24 PM EST Resulting Agency Comment Spec In Lab Daphne Shahid MD BLOOD BANK ORDERABLES Performing Organization Address City/[facility] [address]/ZIP Code Phon e Number [address] ABO/Rh Typing (07/06/2017 12:00 [...] Organization Address City/State/[place] [address] Prothrombin Time (07/06/2017 11:24 [...] [address]/ZIP Code Phon e Number [place] [id number] (ABNORMAL) APTT (07/06/2017 11:24 [...] Address City/State/ZIP Code Phon e Number [address] POCT Glucose (07/06/2017 11:02 AM EST) athologist Signature POC Glucose 187 65 - 199 [place] mg/dL [facility] Comment: Supplemental ranges: <140 mg/dL before meals <180 mg/dL all other times of the day Specimen Anatomical Collection Method Collection Time Receive d Time (Source) Location / / Volume Laterality Blood specimen 07/06/2017 11:02 7 (specimen) AM EST 11:02 AM EST Daphne Shahid MD POINT OF CARE TEST ORDERABLE S Performing Organization Address City/State/[place] [address] POCT Glucose (07/06/2017 10:18 AM EST) athologist Signature POC Glucose 193 65 - 199 [place] mg/dL [facility] Comment: Supplemental ranges: <140 mg/dL before meals <180 mg/dL all other times of the day Specimen Anatomical Collection Method Collection Time Receive d Time (Source) Location / / Volume Laterality Blood specimen 07/06/2017 10:18 7 (specimen) AM EST 10:18 AM EST Daphne Shahid MD POINT OF CARE TEST ORDERABLE S Performing Organization Address City/State/[place] [address] POCT Glucose (07/06/2017 9:25 AM EST) athologist Signature POC Glucose 182 65 - 199 [place] mg/dL [facility] Comment: Supplemental ranges: <140 [...] [address]/[place] [address] (ABNORMAL) Cardiac Enzymes (LEB/CGP) (07/06/2017 8:10 AM EST) athologist Signature Troponin-T 2.26 (H) 0.00 - [place]YAN 0.00 ng/mL [facility] Comment: The 99th percentile [...] additional sample may be indicated. Reference: Third [place] Definition of Myocardial Infarction. Journal of the [...] Address City/State/ZIP Code Phon e Number [place] Magnesium (07/06/2017 8:10 AM EST) athologist Signature Magnesium 0.84 0.69 - 1.07 [facility] mmol/L [facility] Specimen Anatomical Collection Method Collection Time Receive d Time (Source) Location / / Volume Laterality Blood specimen 07/06/2017 8:10 AM 017 8:21 (specimen) EST AM EST Resulting Agency Comment Spec In Lab Daphne Shahid MD CHEMISTRY ORDERABLES Performing Organization Address City/State/ZIP Code Phon e Number [address] (ABNORMAL) Basic Metabolic Panel (non-fasting) (07/06/2017 8:10 AM EST) athologist Signature Glucose Lvl 199 65 - 199 [facility] mg/dL [facility] LABORATORY [...] CARE [facility]ITAL LABORATORY Estimated GFR >60 >=60 [facility] Comment: The reported eGFR should be multiplied b y 1.2 for patients. The MDRD is not an appropriate measure o f renal function for patients with body mass extremes or in patients with acute kidney failure. http://Kanbanize.1,2,3 Listo/DHnkdep http://Kanbanize.1,2,3 Listo/DHMCnkf Specimen Anatomical Collection Method Collection Time Receive d Time (Source) Location / / Volume Laterality Blood specimen 07/06/2017 8:10 AM 017 8:21 (specimen) EST AM EST Resulting Agency Comment Spec In Lab Daphne Shahid MD CHEMISTRY ORDERABLES Performing Organization Address City/[facility] [address]/ZIP Code Phon e Number [address] POCT Glucose (07/06/2017 7:34 AM EST) athologist Signature POC Glucose 198 65 - 199 [facility] mg/dL [facility] Comment: Supplemental ranges: <140 [...] [address]/ZIP Code Phon e Number [address] POCT Glucose (07/06/2017 7:03 AM EST) athologist Signature POC Glucose 181 65 - 199 [facility] Comment: Supplemental ranges: <140 [...] [address]/ZIP Code Phon e Number [address] XR Chest PA or [...] Signature POC Glucose 172 65 - 199 [facility] mg/dL [facility] Comment: Supplemental ranges: <140 mg/dL before meals <180 mg/dL all other times of the day Specimen Anatomical Collection Method Collection Time Receive d Time (Source) Location / / Volume Laterality Blood specimen 07/06/2017 6:21 AM 017 6:21 (specimen) EST AM EST Daphne Shahid MD POINT OF CARE TEST ORDERABLE S Performing Organization Address City/State/ZIP Code Phon e Number [address] POCT Glucose (07/06/2017 5:08 AM EST) athologist Signature POC Glucose 154 65 - 199 [place] mg/dL [facility] Comment: Supplemental ranges: <140 mg/dL before meals <180 mg/dL all other times of the day Specimen Anatomical Collection Method Collection Time Receive d Time (Source) Location / / Volume Laterality Blood specimen 07/06/2017 5:08 AM 017 5:08 (specimen) EST AM EST Daphne Shahid MD POINT OF CARE TEST ORDERABLE S Performing Organization Address City/State/ZIP Code Phon e Number [address] POCT Glucose (07/06/2017 4:05 AM EST) athologist Signature POC Glucose 142 65 - 199 [place] mg/dL [facility] Comment: Supplemental ranges: <140 mg/dL before meals <180 mg/dL all other times of the day Specimen Anatomical Collection Method Collection Time Receive d Time (Source) Location / / Volume Laterality Blood specimen 07/06/2017 4:05 AM 017 4:05 (specimen) EST AM EST Daphne Shahid MD POINT OF CARE TEST ORDERABLE S Performing Organization Address City/State/[place] [address] POCT Glucose (07/06/2017 3:00 AM EST) athologist Signature POC Glucose 116 65 - 199 [facility]YAN mg/dL [facility] Comment: Supplemental ranges: <140 [...] [address]/[place] [address] [facility] [address]ORY [address] Potassium (07/06/2017 2:20 AM EST) athologist Signature Potassium 3.9 3.5 - 5.0 [facility] mmol/L [facility] Comment: Please note: ??Patients [...] [address]/ZIP Code Phon e Number [address] Differential, Automated (07/06/2017 2:20 AM EST) athologist Signature Neutrophils % 72.9 % [facility]ORATORY Neutr Abs (ANC) 5.53 1.70 - [facility] 6.10 [facility] x10(3)/[facility] LABORATORY Lymphocytes % 16.4 % [facility] LABORATORY Lymphocytes Abs 1.2 0.9 - 3.2 [facility] x10(3)/[facility] LABORATORY Monocytes % 9.4 % [facility]ORY Monocyte Abs 0.7 0.3 - 0.9 [facility] x10(3)/[facility] LABORATORY Eosinophils % 0.5 % [facility] Eosinophils Abs 0.0 0.0 - 0.4 [facility] x10(3)/[facility] LABORATORY Basophils % 0.4 % [facility] Basophils Abs 0.0 0.0 - 0.1 [facility] x10(3)/[facility] LABORATORY Immature [...] [facility] MAR Y [facility]ORY Specimen Anatomical Collection Method Collection Time Receive d Time (Source) Location / / Volume Laterality Blood specimen 07/06/2017 2:20 AM 017 2:33 (specimen) EST AM EST Resulting Agency Comment Spec In Lab Daphne Shahid MD HEMATOLOGY ORDERABLES Performing Organization Address City/State/[place] [address] (ABNORMAL) Hemogram (07/06/2017 2:20 AM EST) Analysis Performed At Patho logist Time Signature WBC 7.6 4.0 - 9.5 [facility] x10(3)/[facility] LABORATORY RBC 4.52 (L) 4.58 - [facility] 5.54 [facility] x10(6)/[facility] LABORATORY Hemoglobin 13.4 (L) 13.7 - [facility] 16.5 gm/dL [facility] Hematocrit 39.7 (L) 40.5 - [facility] 48.5 % [facility] MCV 87.8 82.9 - [facility] 93.1 [facility] LABORATORY MCH 29.6 27.5 - [facility] RYAN 32.1 pg [facility] MCHC 33.8 32.0 - [facility] 35.7 gm/dL [facility] Platelets 189 145 - 357 [facility] x10(3)/[facility] LABORATORY RDWSD 45.6 (H) 36.0 - [facility] 45.0 [facility] LABORATORY RDWCV 14.3 (H) 11.4 - [facility] RYAN 13.8 % [facility] MPV 9.1 7.6 - 12.9 [facility] LABORATORY nRBC % Auto 0.0 % [facility] LABORATORY nRBC Abs Auto 0.000 0.000 - [place] DAVIS 0.000 [facility] x10(3)/[facility] LABORATORY Specimen Anatomical Collection Method Collection Time Receive d Time (Source) Location / / Volume Laterality Blood specimen 07/06/2017 2:20 AM 017 2:33 (specimen) EST AM EST Resulting Agency Comment Spec In Lab Daphne Shahid MD HEMATOLOGY ORDERABLES Performing Organization Address City/State/ZIP Code Phon e Number [address] (ABNORMAL) APTT (07/06/2017 2:20 [...] [address]/ZIP Code Phon e Number [address] POCT Glucose (07/06/2017 2:20 AM EST) P athologist Signature POC Glucose 115 65 - 199 [facility] mg/dL [facility] Comment: Supplemental ranges: <140 mg/dL before meals <180 mg/dL all other times of the day Specimen Anatomical Collection Method Collection Time Receive d Time (Source) Location / / Volume Laterality Blood specimen 07/06/2017 2:20 AM 017 2:20 (specimen) EST AM EST Daphne Shahid MD POINT OF CARE TEST ORDERABLE S Performing Organization Address City/State/[place] [address] (ABNORMAL) Cardiac Enzymes (LEB/CGP) (07/06/2017 2:20 AM EST) P athologist Signature Troponin-T 2.13 (H) 0.00 - [place] 0.00 ng/mL [facility] Comment: The 99th percentile [...] additional sample may be indicated. Reference: Third [place] Definition of Myocardial Infarction. Journal of the [...] Organization Address City/State/[place] [address] (ABNORMAL) Hemoglobin A1c (07/06/2017 2:20 AM EST) Analysis Performed At Patho logist Time Signature Hemoglobin A1C 6.8 (H) 4.3 - 5.6 [facility] % [facility] Comment: Reference Range: 4.3 [...] Mellitus, Diabetes Care 2013; 36: Suppl. 1, S67-69 Est Avg Gluc See note mg/dL [place] [...] with hemoglobinopathies. Additional resources are available on [employer] ADA website. Macario HAMMOND, Ruthann J, Deysi R, et al. ??Tr anslating the A1C assay into estimated average glucose values. ??Diabetes Care 2008:31(8):4724-8511. Specimen Anatomical Collection Method Collection Time Receive d Time (Source) Location / / Volume Laterality Blood specimen 07/06/2017 2:20 AM 017 2:34 (specimen) EST AM EST Resulting Agency Comment Spec In Lab Daphne Shahid MD CHEMISTRY ORDERABLES Performing Organization Address City/State/[place] [address] (ABNORMAL) Lipid Panel (07/06/2017 2:20 AM EST) Patholo gist Method Time Signature Chol, Total 150 <=239 [place] mg/dL [facility] Triglycerides 129 <=199 [facility] mg/dL [facility] HDL 32 (L) >=40 [place] mg/dL [facility] LDL Cholesterol 92 <=190 [facility] mg/dL [facility] Chol/HDL Ratio 4.7 ratio [facility] LABORATORY Lipid See Note BARBARA Interpretation [facility] Comment: Lipid management should be guided by a p atient? s ASCVD risk, goals and preferences. ACC/AHA Guidelines recommend high intens ity statin if clinical ASCVD or LDL greater than or equal to 190 mg/dL. http://Kanbanize.1,2,3 Listo/LJV-SOG-Rptnqjzqi Adults aged 40-75 with LDL 70-189 mg/dL should have their 10 year ASCVD risk estimated with the ACC/AHA ASCVD risk es timator http://tools.acc.org/TOWMZ-Fzaw-Hsosnmcr r/ Statin should be discussed if risk [...] Organization Address City/State/[place] [address] POCT Glucose (07/06/2017 1:09 AM EST) P athologist Signature POC Glucose 121 65 - 199 [facility] mg/dL [facility] Comment: Supplemental ranges: <140 mg/dL before meals <180 mg/dL all other times of the day Specimen Anatomical Collection Method Collection Time Receive d Time (Source) Location / / Volume Laterality Blood specimen 07/06/2017 1:09 AM 017 1:09 (specimen) EST AM EST Daphne Shahid MD POINT OF CARE TEST ORDERABLE S Performing Organization Address City/State/[place] [address] POCT Glucose (07/06/2017 12:06 AM EST) P athologist Signature POC Glucose 147 65 - 199 [place] mg/dL [facility] Comment: Supplemental ranges: <140 mg/dL before meals <180 mg/dL all other times of the day Specimen Anatomical Collection Method Collection Time Receive d Time (Source) Location / / Volume Laterality Blood specimen 07/06/2017 12:06 7 (specimen) AM EST 12:06 AM EST Daphne Shahid MD POINT OF CARE TEST ORDERABLE S Performing Organization Address City/State/[place] [address] (ABNORMAL) POCT Glucose (07/05/2017 10:56 PM EST) P athologist Signature POC Glucose 200 (H) 65 - 199 [place] mg/dL [facility] Comment: Supplemental ranges: <140 mg/dL before meals <180 mg/dL all other times of the day Specimen Anatomical Collection Method Collection Time Receive d Time (Source) Location / / Volume Laterality Blood specimen 07/05/2017 10:56 7 (specimen) PM EST 10:56 PM EST Daphne Shahid MD POINT OF CARE TEST ORDERABLE S Performing Organization Address City/State/[place] [address] (ABNORMAL) POCT Glucose (07/05/2017 10:05 PM EST) P athologist Signature POC Glucose 225 (H) 65 - 199 [place] mg/dL [facility] Comment: Supplemental ranges: <140 mg/dL before meals <180 mg/dL all other times of the day Specimen Anatomical Collection Method Collection Time Receive d Time (Source) Location / / Volume Laterality Blood specimen 07/05/2017 10:05 7 (specimen) PM EST 10:05 PM EST Daphne Shahid MD POINT OF CARE TEST ORDERABLE S Performing Organization Address City/State/[place] [address] (ABNORMAL) POCT Glucose (07/05/2017 9:02 PM EST) P athologist Signature POC Glucose 301 (H) 65 - 199 [facility] mg/dL [facility] Comment: Supplemental ranges: <140 mg/dL before meals <180 mg/dL all other times of the day Specimen Anatomical Collection Method Collection Time Receive d Time (Source) Location / / Volume Laterality Blood specimen 07/05/2017 9:02 PM 017 9:02 (specimen) EST PM EST Daphne Shahid MD POINT OF CARE TEST ORDERABLE S Performing Organization Address City/State/[place] [address] XR Chest PA or [...] 474 ms MUSE SYSTEM (Bezet) Calculated P [place] 50 degrees MUSE SYSTEM Calculated R [place] -28 degrees MUSE SYSTEM Calculated T [place] 90 degrees MUSE SYSTEM INTERPRETATION Sinus tachycardia [...] Neutr Abs (ANC) 9.08 (H) 1.70 - [facility] 6.10 [facility] x10(3)/[facility] LABORATORY Lymphocytes % 7.0 % [facility] LABORATORY Lymphocytes Abs 0.7 (L) 0.9 - 3.2 [facility] x10(3)/[facility] LABORATORY Monocytes % 3.7 % [facility] LABORATORY Monocyte Abs 0.4 0.3 - 0.9 [facility] x10(3)/[facility] LABORATORY Eosinophils % 0.1 % [facility] LABORATORY Eosinophils Abs 0.0 0.0 - 0.4 [facility] x10(3)/[facility] LABORATORY Basophils % 0.2 % [facility] LABORATORY Basophils Abs 0.0 0.0 - 0.1 [facility] x10(3)/[facility] LABORATORY Immature Gran % 0.60 % WHITE [...] Organization Address City/State/[place] [address] (ABNORMAL) Hemogram (07/05/2017 8:20 PM EST) Analysis Performed At Patho logist Time Signature WBC 10.3 (H) 4.0 - 9.5 [facility] x10(3)/[facility] LABORATORY RBC 4.64 4.58 - [facility] 5.54 [facility] x10(6)/[facility] LABORATORY Hemoglobin 14.1 13.7 - [facility] 16.5 gm/dL [facility] LABORATORY Hematocrit 40.8 40.5 - [facility] 48.5 % [facility] LABORATORY MCV 87.9 82.9 - [facility] 93.1 [facility] LABORATORY MCH 30.4 27.5 - [place] 32.1 pg [facility] LABORATORY MCHC 34.6 32.0 - [place] 35.7 gm/dL [facility] LABORATORY Platelets 204 145 - 357 [facility] x10(3)/[facility] LABORATORY RDWSD 46.1 (H) 36.0 - [facility] 45.0 [facility] LABORATORY RDWCV 14.5 (H) 11.4 - [facility] 13.8 % [facility] LABORATORY MPV 9.7 7.6 - 12.9 [facility] LABORATORY nRBC % Auto 0.0 % [facility] LABORATORY nRBC Abs Auto 0.000 0.000 - [place] ZHAORYAN 0.000 [facility] x10(3)/[facility] LABORATORY Specimen Anatomical Collection Method Collection Time Receive d Time (Source) Location / / Volume Laterality Blood specimen 07/05/2017 8:20 PM 017 8:27 (specimen) EST PM EST Resulting Agency Comment Spec In Lab Daphne Shahid MD HEMATOLOGY ORDERABLES Performing Organization Address City/State/[place] [address] APTT (07/05/2017 8:20 PM [...] Organization Address City/State/[place] [address] (ABNORMAL) Cardiac Enzymes (LEB/CGP) (07/05/2017 8:20 PM EST) athologist Signature Troponin-T 2.11 (H) 0.00 - [place] OLIVASCK 0.00 ng/mL [facility]ORY Comment: The 99th percentile [...] additional sample may be indicated. Reference: Third [place] Definition of Myocardial Infarction. Journal of the [...] Organization Address City/State/[place] [address] (ABNORMAL) Magnesium (07/05/2017 8:20 PM EST) P athologist Signature Magnesium 0.68 (L) 0.69 - 1.07 [facility] mmol/L [facility] [facility] Specimen Anatomical Collection Method Collection Time Receive d Time (Source) Location / / Volume Laterality Blood specimen 07/05/2017 8:20 PM 017 8:27 (specimen) EST PM EST Resulting Agency Comment Spec In Lab Daphne Shahid MD CHEMISTRY ORDERABLES Performing Organization Address City/State/[place] [address] (ABNORMAL) Basic Metabolic Panel (non-fasting) (07/05/2017 8:20 PM EST) P athologist Signature Glucose Lvl 321 (H) 65 - 199 [facility] mg/dL [facility] LABORATORY [...] CARE HOSPITAL LABORATORY Estimated GFR >60 >=60 [facility] Comment: The reported eGFR should be multiplied b y 1.2 for patients. The MDRD is not an appropriate measure o f renal function for patients with body mass extremes or in patients with acute kidney failure. http://Kanbanize.1,2,3 Listo/DHnkdep http://PinPay/DHMCnkf Specimen Anatomical Collection Method Collection Time Receive d Time (Source) Location / / Volume Laterality Blood specimen 07/05/2017 8:20 PM 017 8:27 (specimen) EST PM EST Resulting Agency Comment Spec In Lab Daphne Shahid MD CHEMISTRY ORDERABLES Performing Organization Address City/State/ZIP Code Phon e [place] [address] (ABNORMAL) POCT Glucose (07/05/2017 7:32 PM EST) P athologist Signature POC Glucose 296 (H) 65 - 199 [facility] mg/dL [facility] Comment: Supplemental ranges: <140 mg/dL before meals <180 mg/dL all other times of the day Specimen Anatomical Collection Method Collection Time Receive d Time (Source) Location / / Volume Laterality Blood specimen 07/05/2017 7:32 PM 017 7:32 (specimen) EST PM EST Daphne Shahid MD POINT OF CARE TEST ORDERABLE S Performing Organization Address City/State/[place] [address] CARDIAC CATHETERIZATION (07/05/2017 6:47 PM EST) Anatomical Region Laterality Modality Other Specimen (Source) Anatomical Location Collection Method / Collectio n Time Received Time / Laterality Volume Narrative 07/05/2017 7:27 PM EST ?[facility] ? Cardiac Cathete rization/Intervention Report ? Patient Name: Natalya, Gregory ? Procedure Date: 07/05/2017 ? A #: [id number] ? Primary Physician: Clarisa, Jet T ? Case #: [id number] ? File Name: [id number] ? Catheterization Order Number: [id number] ? [facility] ? Final Report [place], [place] ? Patient Name: ? Gregory Natalya ?ID#: ?[id number] ? : ?1945 ? Procedure Date: ? [...] presented with: non -STEMI (w/i 7 days). [place] ?Cardiovascular Society angina c lass was IV. [...] sedation nurse. ??Case time = 00:42. ?Dr. Barbara Alatorre d the coronary angiography, left heart ?catheterization, access site angio graphy and IABP insertion in manager lab. ? Jet Mckenna M.D. ? Electronically Signed by: Jet bunch M.D. ? Report Finalized: 07/05/2017 ??19:23 ? Report Last Ammended: 10/26/2017 ??10:29 ? Procedure Note Jet Mckenna MD - 10/26/2017Formatt ing of this note might be different from the original. [facility] Cardiac Catheterization/Intervention Re port Patient Name: Gregory Hoang Procedure Date: 07/05/2017 A #: [id number] Primary Physician: Jet Mckenna Case #: [id number] File Name: [id number] Catheterization Order Number: [id number] [facility] Final Report [place], [place] Patient Name: Gregory Hoang ID#: [id number] : 1945 Procedure Date: July 05, [...] presented with: non-STEMI ( w/i 7 days). [place] [employer] angina class was IV. No [...] angiograph y and IABP insertion in manager lab. Jet Mckenna M.D. Electronically Signed by: Jet bunch M.D. Report Finalized: 07/05/2017 19:23 Report Last Ammended: 10/26/2017 10:29 Daphne Shahid MD CARDIAC CATH ORDERABLES ECHOCARDIOGRAM COMPLETE W CONTRAST (07/05/2017 6:21 PM EST) athologist Signature EF 29 [facility] Anatomical Region Laterality Modality Other Specimen (Source) Anatomical Location Collection Method / Collectio n Time Received Time / Laterality Volume 07/06/2017 Narrative 07/06/2017 8:53 AM EST Procedure: ?Transthoracic Echocardiogram Patient: ?ANTALYA Mccollum ? (Age): 1945(72y) Med Rec#: ? [id number] ?Sex: ?M ? Site Loc: ? [facility] ?Ht / Wt: ??173(cm)/86(kg) Pt. Loc: ?CCU ? BSA: ?2 Study Date: ?? 07/05/2017 ?Pt. Type: Inpatient Tape: ? Referring: Daphne Shahid ([id number]) Referring: MANDA ALCANTAR Reading: Blade Preston ([id number]) Fruit Harvest Worker: Dayami Paula BA, [facility] Diagnosis: *ICD-10-PCS Non-ST elevation [...] E-wave Vmax ?0.8 ?m/sec ? MV deceleration [id number] ?msec ? MV A-wave Vmax ?0.8 ?m/sec [...] ? Mid-Inferior ?Akinetic ? Mid-Inferoseptal ?Hypokinetic ? Sanborn-Septal ? Akinetic ? Sanborn-Anterior ? Hypokinetic ? Sanborn-Lateral ?Hypokinetic ? Sanborn-Inferior ? Akinetic ? Sanborn-Tip ?Akinetic ? This report has been electronically sign ed by: _ Blade Preston MD ? 07/06/2017 08 :53:15 Images reviewed and interpretation verif ied [facility] Cardiac Ultrasound Laboratory Procedure Note Blade Preston MD - 07/06/2017Formatt ing of this note might be different from the original. Procedure: Transthoracic Echocardiogram Patient: NATALYA MCBRIDE(Age): [birth year]72y) Med Rec#: [id number] Sex: M Site Loc: [facility] Ht / Wt: 173(cm)/86(kg) Pt. Loc: CCU BSA: 2 Study Date: 07/05/2017 Pt. Type: Inpatie nt Tape: Referring: Daphne Shahid ([id number]) Referring: MANDA ALCANTAR Reading: Blade Preston ([id number]) Fruit Harvest Worker: Dayami Paula BA, [facility] Diagnosis: *ICD-10-PCS Non-ST elevation [...] MV E-wave Vmax 0.8 m/sec MV deceleration [id number] msec MV A-wave Vmax 0.8 m/sec MV [...] Hypokinetic Mid-Posterolateral Hypokinetic Mid-Inferior Akinetic Mid-Inferoseptal Hypokinetic Sanborn-Septal Akinetic Sanborn-Anterior Hypokinetic Sanborn-Lateral Hypokinetic Sanborn-Inferior Akinetic Sanborn-Tip Akinetic This report has been electronically sign ed by: _ Blade Preston MD 07/06/2017 08:53:15 Images reviewed and interpretation verif ied [facility] Cardiac Ultrasound Laboratory Daphne Shahid MD ECHO ORDERABLES Differential, Automated (07/05/2017 4:55 PM EST) athologist Signature Neutrophils % 77.0 % [facility] LABORATORY Neutr Abs (ANC) 5.26 1.70 - [facility] 6.10 [facility] x10(3)/[facility] LABORATORY Lymphocytes % 13.3 % [facility] LABORATORY Lymphocytes Abs 0.9 0.9 - 3.2 [facility] x10(3)/[facility] LABORATORY Monocytes % 8.2 % [facility] LABORATORY Monocyte Abs 0.6 0.3 - 0.9 [facility] x10(3)/[facility] LABORATORY Eosinophils % 0.7 % [facility] LABORATORY Eosinophils Abs 0.0 0.0 - 0.4 [facility] x10(3)/[facility] LABORATORY Basophils % 0.4 % [facility] LABORATORY Basophils Abs 0.0 0.0 - 0.1 [facility] x10(3)/[facility] LABORATORY Immature [...] [facility] LABORATORY Specimen Anatomical Collection Method Collection Time Receive d Time (Source) Location / / Volume Laterality Blood specimen 07/05/2017 4:55 PM 017 5:24 (specimen) EST PM EST Resulting Agency Comment Spec In Lab Daphne Shahid MD HEMATOLOGY ORDERABLES Performing Organization Address City/State/[place] [address] (ABNORMAL) Hemogram (07/05/2017 4:55 PM EST) Analysis Performed At Patho logist Time Signature WBC 6.8 4.0 - 9.5 [facility] x10(3)/[facility] LABORATORY RBC 4.67 4.58 - [facility] 5.54 [facility] x10(6)/[facility] LABORATORY Hemoglobin 14.0 13.7 - [facility] 16.[facility] gm/dL [facility] LABORATORY Hematocrit 41.0 40.5 - [facility] 48.5 % [facility] LABORATORY MCV 87.8 82.9 - [facility] 93.1 [facility] LABORATORY MCH 30.0 27.5 - [facility] 32.1 pg [facility] LABORATORY MCHC 34.1 32.0 - [facility] 35.7 gm/dL [facility] LABORATORY Platelets 197 145 - 357 [facility] x10(3)/[facility] LABORATORY RDWSD 46.4 (H) 36.0 - [facility] 45.0 [facility] LABORATORY RDWCV 14.5 (H) 11.4 - [facility] 13.8 % [facility] LABORATORY MPV 9.7 7.6 - 12.9 [facility] LABORATORY nRBC % Auto 0.0 % [facility] LABORATORY nRBC Abs Auto 0.000 0.000 - [facility] 0.000 [facility] x10(3)/[facility] LABORATORY Specimen Anatomical Collection Method Collection Time Receive d Time (Source) Location / / Volume Laterality Blood specimen 07/05/2017 4:55 PM 017 5:24 (specimen) EST PM EST Resulting Agency Comment Spec In Lab Daphne Shahid MD HEMATOLOGY ORDERABLES Performing Organization Address City/State/[place] [address] (ABNORMAL) Cardiac Enzymes (LEB/CGP) (07/05/2017 4:55 PM EST) athologist Signature Troponin-T 1.69 (H) 0.00 - [facility] 0.00 ng/mL [facility] LABORATORY Comment: The 99th percentile [...] additional sample may be indicated. Reference: Third [place] Definition of Myocardial Infarction. Journal of the [...] [address]/[place] [address] (ABNORMAL) pro-Brain Natriuretic Peptide (07/05/2017 4:55 PM EST) athologist Signature ProBNP 1,598 (H) <=125 [facility] pg/mL [facility] LABORATORY Specimen Anatomical Collection Method Collection Time Receive d Time (Source) Location / / Volume Laterality Blood specimen 07/05/2017 4:55 PM 017 5:24 (specimen) EST PM EST Resulting Agency Comment Spec In Lab Daphne Shahid MD CHEMISTRY ORDERABLES Performing Organization Address City/[facility] [address]/ZIP Code Phon e Number [address] Magnesium (07/05/2017 4:55 PM EST) athologist Signature Magnesium 0.78 0.69 - 1.07 [facility] mmol/L [facility] LABORATORY Specimen Anatomical Collection Method Collection Time Receive d Time (Source) Location / / Volume Laterality Blood specimen 07/05/2017 4:55 PM 017 5:24 (specimen) EST PM EST Resulting Agency Comment Spec In Lab Daphne Shahid MD CHEMISTRY ORDERABLES Performing Organization Address City/[facility] [address]/[place] [address] (ABNORMAL) Basic Metabolic Panel (non-fasting) (07/05/2017 4:55 PM EST) athologist Signature Glucose Lvl 230 (H) 65 - 199 [facility] mg/dL [facility] LABORATORY [...] CARE HOSPITAL LABORATORY Estimated GFR >60 >=60 [facility] Comment: The reported eGFR should be multiplied b y 1.2 for patients. The MDRD is not an appropriate measure o f renal function for patients with body mass extremes or in patients with acute kidney failure. http://PinPay/DHnkdep http://PinPay/[facility] Specimen Anatomical Collection Method Collection Time Receive d Time (Source) Location / / Volume Laterality Blood specimen 07/05/2017 4:55 PM 017 5:24 (specimen) EST PM EST Resulting Agency Comment Spec In Lab Daphne Shahid MD CHEMISTRY ORDERABLES Performing Organization Address City/[facility] [address]/[place] [address] (ABNORMAL) APTT (07/05/2017 4:55 [...] Organization Address City/State/[place] [address] (ABNORMAL) POCT Glucose (07/05/2017 4:53 PM EST) P athologist Signature POC Glucose 208 (H) 65 - 199 [facility] mg/dL [facility]ORY Comment: Supplemental ranges: <140 mg/dL before meals <180 mg/dL all other times of the day Specimen Anatomical Collection Method Collection Time Receive d Time (Source) Location / / Volume Laterality Blood specimen 07/05/2017 4:53 PM 017 4:53 (specimen) EST PM EST Daphne Shahid MD POINT OF CARE TEST ORDERABLE S Performing Organization Address City/State/ZIP Code Phon e Number [address] EKG 12 Lead (07/05/2017 4:32 PM EST) Component Value Ref Range Test Analysis Performed Pathologis t Method Time At Signature Ventricular rate 97 BPM MUSE SYSTEM Atrial Rate 97 BPM MUSE SYSTEM P-R Interval 148 ms MUSE SYSTEM QRS Duration 96 ms MUSE SYSTEM Q-T Interval 364 ms MUSE SYSTEM QTC Calculated 462 ms MUSE SYSTEM (Bezet) Calculated P Spalding 48 degrees MUSE SYSTEM Calculated R Spal[place] -33 degrees MUSE SYSTEM Calculated T Sp[place] 98 degrees MUSE SYSTEM INTERPRETATION Normal sinus [...] 0841 (Given - Provider: Em Jones, VAMSI) 09 (Given - Provider: Myrna triplett RN) 400 mg, Oral, DAILY, First dose on Tu09/13/16 at 0745, Until Discontinued, Routine aspirin chewable [...] RN) 2130 (No t Given - Provider: Deince Jacobson RN - Reason: See comment - [...]
Routine documented in this encounter Care Teams Molten Iron Pourer Relationship Specialty Start Date End Date Lovely Vicente MD PCP - General 04/16/[address] [place] [address] [address] [place] [address] documented as of this encounter
--- OUTSIDE RECORDS SUMMARY | 2022-04-15 08:25 | XMS_ITS | Encounter Summary ---
:1945 [place] [address] Care Team Providers Name Role Phone Lovely Vicente MD Primary Care Provider Reason for Visit Auth/Cert Specialty Diagnoses / Procedures Referred By Contact Refer red To Contact Diagnoses STEMI (ST elevation myocardial infarction) NSTEMI STEMI Procedures CARDIAC CATHETERIZATION NAYE IPI Referral ID Status Reason Start Date Expiration Date Visits Requ ested Visits Authorized [id number] 1 1 Encounter Details Date Type Department Care Team Description 07/07/2017 Anesthesia Event Main Operating Room Yifan Jaime MD [facility] [place] [address] [facility] Ginny Murray MD [facility] [place] [address] [facility] [place] [address] Anesthesia Record Procedure Summary Procedure Name [...] 2342 LDA Cath/EP Sheath 07/05/17; 0606; 8 Guamanian 07/05/17 0606 by 1118 by (Fr); Right; Femoral Lilliana Park, Yane Cook, RN PIV 07/05/17; 1720; median 07/05/17 1720 by 07/11/17 2355 by vein (underside of arm), Prior, Yanet Maza, Angela Mccurdy, left; 18 gauge; removed POWERHOUSE MECHANIC SUPERVISOR per policy/procedure; 07/11/17; 2355 Intra-Aortic Balloon [...] Miller, Carrie L, Type: Cuffed; ETT Size: MEDICAL SUPERINTENDENT 8 mm; Santiago Blade: 2; Notes: Asleep, [...] Murray MD - 07/08/2017 5:08 PM EST [facility] Department of Anesthesiology Post-procedure Note Patient: Don [...] All Anesthesia Providers: Anesthesiologist: Yifan Perez MD Fire Prevention Bureau Captain: Ginny Murray MD Most Recent Vitals: 07/08/17 [...] Zulma Dolan MD [facility] [place], [place] [address] (Wo rk) 05/28/2022 Laboratory Appointment Lab 05/28/2022 Office Visit Cardiology Zulma Dolan MD [facility] [place] [address] Liz Poole PA [facility] [place] [address] 06/10/2022 Office Visit Dermatology Laura Scherer MD [facility] [address] TEJA GR-DERMAT [place], [place] [address] (Wo rk) documented as of [...] mg documented in this encounter Care Teams Senior Administrator Support Relationship Specialty Start Date End Date Lovely Vicente MD PCP - General 04/16/[address] [place] [address] documented as of this encounter
--- OUTSIDE RECORDS SUMMARY | 2022-04-15 08:26 | XMS_ITS | Encounter Summary ---
:1945 Author Organization [facility] [place] [address] Care Team Providers Name Role Phone Lovely Vicente MD Primary Care Provider Encounter Details Date Type Department Care Team Description 09/03/2016 Laboratory App[facility]ment [facility] Hx of [facility] [place] [phone] Social History Tobacco Use Types Packs/Day Years [...] MD [facility] [address] [place] [address] (Wo rk) 05/28/2022 Laboratory Appointment Lab 05/28/2022 Office Visit Cardiology Zulma Dolan MD [facility] [place] [address] Liz Poole PA [facility] [place] [address] 06/10/2022 Office Visit Dermatology Laura Scherer MD [facility] TEJA GR-DERMAT [place], [place] [address] (Wo rk) documented as [...] AM EST) athologist Signature Thyroglobulin <0.4 <=54.9 [facility] ng/mL [facility] LABORATORY Comment: Interpret with caution. Tg [...] than those obtained with T4 withdrawal protocol (Hobart BR et al. J Clin Endo Metab 1999;84:3917-9117). Assay performed using the DPC Immulite T [...] Address City/State/ZIP Code Phon e Number [address] TSH (09/03/2016 11:07 AM EST) P athologist Signature TSH 3.01 0.27 - 4.20 [facility] mcIU/mL [facility] LABORATORY Specimen Anatomical Collection Method Collection Time Receive d Time (Source) Location / / Volume Laterality Blood specimen 09/03/2016 11:07 7 (specimen) AM EST 11:22 AM EST Resulting Agency Comment Spec In Lab Luz Prescott MD CHEMISTRY ORDERABLES Performing Organization Address City/[facility]/ZIP [facility] [place] [address] documented in this encounter Visit Diagnoses Diagnosis Hx of papillary thyroid carcinoma Personal history of malignant neoplasm o f thyroid documented in this encounter Care Teams Lvn Relationship Specialty Start Date End Date Lovely Vicente MD PCP - General 04/16/[address] [facility] [address] [place] [address] documented as of this encounter
--- OUTSIDE RECORDS SUMMARY | 2022-04-15 08:26 | XMS_ITS | Encounter Summary ---
:1945 Author Organization [facility] [place] [address] Care Team Providers Name Role Phone Lovely Vicente MD Primary Care Provider Reason for Visit Reason Onset Date Comments Referral 10/30/2015 Urgent referral for mac on [address] Encounter Details Date Type Department Care Team Description 10/30/2015 Telephone Ophthalmology at [facility] C Jayson Ruiz Referral (Urgent [facility] MD Grabiel referral for mac on [facility] [address] [place]) [place] [address] OPHTHALMOLOGY DEPT. [phone] [place], [place] [address] (Wo rk) Social History Tobacco [...] Zulma Dolan MD [facility] [address] [place], [place] [address] (Wo rk) 05/28/2022 Laboratory Appointment Lab 05/28/2022 Office Visit Cardiology Zulma Dolan MD [facility] [place] [address] Liz Poole PA [facility] [place] [address] 06/10/2022 Office Visit Dermatology Laura Scherer MD [facility] DR TEJA GR-DERMAT [place], [place] [address] (Wo rk) documented as of this encounter Visit Diagnoses Not on filedocumented in this encounter Care Teams Lymphedema Therapist Relationship Specialty Start Date End Date Lovely Vicente MD PCP - General 04/16/[address] [place], [place] [address] documented as of this encounter
--- OUTSIDE RECORDS SUMMARY | 2022-04-15 08:26 | XMS_ITS | Encounter Summary ---
:1945 Author Organization [facility] [place] [address] Care Team Providers Name Role Phone Lovely Vicente MD Primary Care Provider Reason for Visit Reason Onset Date Comments Medication Refill 12/24/2016 Encounter Details Date Type Department Care Team Description 12/24/2016 Refill Endocrinology at [facility] Luz Stallings MD [facility] [place] [address] ENDOCRINOLOGY DEPT [phone] [place], [place] [address] (Wo rk) Social History Tobacco [...] MD [facility] er [address] [place] 0[address] (Wo rk) 05/28/2022 Laboratory Appointment Lab 05/28/2022 Office Visit Cardiology Zulma Dolan MD [facility] [place] [address] Liz Poole PA [facility] [place] [address] 06/10/2022 Office Visit Dermatology Laura Scherer MD [facility] [address] TEJA RG-DERMAT [place], [place] [address] (Wo rk) documented as of this encounter Visit Diagnoses Not on filedocumented in this encounter Care Teams Instrument Calibrator Relationship Specialty Start Date End Date Lovely Vicente MD PCP - General 04/16/[address] [place], [place] [address] documented as of this encounter
--- OUTSIDE RECORDS SUMMARY | 2022-04-15 08:26 | XMS_ITS | Encounter Summary ---
:1945 Author Organization [place] [address] Care Team Providers Name Role Phone Lovely Vicente MD Primary Care Provider Reason for Visit Reason Comments Skin Lesion Encounter Details Date Type Department Care Team Description 11/24/2016 [facility] uncertain behavior of skin; Road IIIMD Pigmented skin lesion of uncertain natur e; [address] [facility] [place] of [place] [address] [facility] SIMÓN-DERMATOLGY [place], [place] [address] Social History Tobacco Use Types [...] or concerns, please call the office at [phone]. If it is after 5PM, or a holiday or weekend, please call [phone] and ask for the Byproducts Supervisor on-call. documented in this encounter Progress [...] 71 y.o. year old male.Established patient of [employer]. Last seen 06/05/16. Here today for new [...] Dolan MD [facility] er [place] [address] (Wo rk) 05/28/2022 Laboratory Appointment Lab 05/28/2022 Office Visit Cardiology Zulma Dolan MD [facility] [address] [address] Liz Poole PA [facility] [place] [address] 06/10/2022 Office Visit Dermatology Laura Scherer MD [facility] ER DR [address]-DERMAT [place]LOG[place], [place] [address] (Wo rk) documented as of [...] Performed At [facility] gist Range Method Time Signature Surgical [id number] ?Location: [facility] Report The signing pathologist has [...] Organization Address City/State/[place] [address] Specimen to Pathology (NON-OR) [...] City/State/[place] [address] documented in this encounter Visit Diagnoses Diagnosis Neoplasm of uncertain behavior of skin Pigmented skin lesion of uncertain natur e History of melanoma Personal history of malignant melanoma o f skin documented in this encounter Care Teams Header Machine Operator Relationship Specialty Start Date End Date Lovely Vicente MD PCP - General 04/16/[address] [place] [address] documented as of this encounter
--- OUTSIDE RECORDS SUMMARY | 2022-04-15 08:26 | XMS_ITS | Encounter Summary ---
:1945 Author Organization [facility] [place] [address] Care Team Providers Name Role Phone Lovely Vicente MD Primary Care Provider Encounter Details Date Type Department Care Team Description 09/03/2016 Office Visit Endocrinology at [facility] Maria Ines Stallings of [facility] MD [place] [address] [place] [address] ENDOCRINOLOGY DEPT [place], [place] [address] Social History Tobacco Use [...] to his magnesium pill. LUZ PRESCOTT MD Representative Phlebotomy Servicescrop consultant Section of Endocrinology [facility] [...] sonographic evidence of recurrence. LUZ PRESCOTT MD Representative Phlebotomy Servicescrop consultant Section of Endocrinology [facility] documented in this encounter Plan of Treatment Upcoming Encounters Date Type Specialty Care Team Description 05/28/2022 Appointment Cardiology Zulma Dolan MD [facility] [address] [place], [place] [address] (Wo rk) 05/28/2022 Laboratory Appointment Lab 05/28/2022 Office Visit Cardiology Zulma Dolan MD [facility] [place] [address] Liz Poole PA [facility] [place] [address] 06/10/2022 Office Visit Dermatology Laura Scherer MD [facility] DR [address] [place], [place] [address] (Wo rk) documented as of this encounter Results Thyroglobulin (09/07/2017 2:41 PM EST) P athologist Signature Thyroglobulin 1.4 <=54.9 KATALINA RYAN ng/mL [facility] Comment: Thyroglobulin levels [...] not been established. Assay performed using the TabSprint Immulite T g immunometric assay (lowest detection [...] Prescott MD CHEMISTRY ORDERABLES Performing Organization Address City/[facility]/ZIP Code Phon e Number [address] TSH (09/07/2017 2:41 PM EST) athologist Signature TSH 3.93 0.27 - 4.20 [facility] mlU/ML [facility] Specimen Anatomical Collection Method Collection Time Receive d Time (Source) Location / / Volume Laterality Blood specimen 09/07/2017 2:41 PM 018 2:46 (specimen) EST PM EST Resulting Agency Comment Spec In Lab Luz Prescott MD CHEMISTRY ORDERABLES Performing Organization Address City/[facility] Phon e Number [address] Thyroglobulin (09/03/2016 11:07 AM EST) athologist Signature Thyroglobulin <0.4 <=54.9 [facility] ng/mL [facility] Comment: Interpret with [...] than those obtained with T4 withdrawal protocol ([place] BR et al. J Clin Endo Metab 1999;84:0127-6487). Assay performed using the DPC Immulite T [...] Prescott MD CHEMISTRY ORDERABLES Performing Organization Address City/[facility]/ZIP Code Phon e Number [address] TSH (09/03/2016 11:07 AM EST) P athologist Signature TSH 3.01 0.27 - 4.20 [facility] mcIU/mL [facility] Specimen Anatomical Collection Method Collection Time Receive d Time (Source) Location / / Volume Laterality Blood specimen 09/03/2016 11:07 7 (specimen) AM EST 11:22 AM EST Resulting Agency Comment Spec In Lab Luz Prescott MD CHEMISTRY ORDERABLES Performing Organization Address City/[facility]/[place] [address] documented in this encounter Visit Diagnoses Diagnosis Hx of papillary thyroid carcinoma Personal history of malignant neoplasm o f thyroid documented in this encounter Care Teams Strap Stitcher Relationship Specialty Start Date End Date Lovely Vicente MD PCP - General 04/16/[address] [place] [address] documented as of this encounter
--- OUTSIDE RECORDS SUMMARY | 2022-04-15 08:26 | XMS_ITS | Encounter Summary ---
:1945 Author Organization [facility] [place] [address] Care Team Providers Name Role Phone Lovely Vicente MD Primary Care Provider Reason for Visit Reason Onset Date Comments Pre Procedure Call 12/02/2016 Encounter Details Date Type Department Care Team Description 12/02/2016 Telephone Dermatology at [facility] Mira James LPN Pre Procedure Call [address] [place] [address] Social History Tobacco Use Types Packs/Day [...] Zulma Dolan MD [facility] [place], [place] [address] (Wo lissa) 05/28/2022 Laboratory Appointment Lab 05/28/2022 Office Visit Cardiology Zulma Dolan MD [facility] [place] [address] Liz Poole PA [facility] [place] [address] 06/10/2022 Office Visit Dermatology Laura Scherer MD [facility] DR [address] [place], [place] [address] (Wo rk) documented as of this encounter Visit Diagnoses Not on filedocumented in this encounter Care Teams Business Continuity Planner Relationship Specialty Start Date End Date Lovely Vicente MD PCP - General 04/16/[address] [place] [address] documented as of this encounter
--- OUTSIDE RECORDS SUMMARY | 2022-04-15 08:26 | XMS_ITS | Encounter Summary ---
:1945 Author Organization [facility] [place] [address] Care Team Providers Name Role Phone Lovely Vicente MD Primary Care Provider Encounter Details Date Type Department Care Team Description 07/05/2017 Telephone Cardiology Kim Galindo MD [facility] [place] [address] CARDIOLOGY DEPT [phone] [place], [place] [address] (Wo rk) Social History Tobacco [...] 1:54pm Referring Provider: Ivania CROWELL) Patient Location: [facility] Presenting Symptoms per OSH: 72 year [...] and elevated troponin, transport patient to [facility] for cath this afternoon and arrhythmia monitoring. Kim Galindo MD Industrial X Ray Operator documented in this encounter Plan of Treatment Upcoming Encounters Date Type Specialty Care Team Description 05/28/2022 Appointment Cardiology Zulma Dolan MD [facility] [address] [place], [place] [address] (Wo rk) 05/28/2022 Laboratory Appointment Lab 05/28/2022 Office Visit Cardiology Zulma Dolan MD [facility] [place] [address] Liz Poole PA [facility] [place] [address] 06/10/2022 Office Visit Dermatology Laura Scherer MD [facility] [address] [place], [place] [address] (Wo rk) documented as of this encounter Visit Diagnoses Not on filedocumented in this encounter Care Teams Teenage Babysitter Relationship Specialty Start Date End Date Lovely Vicente MD PCP - General 04/16/[address] [place] [address] documented as of this encounter
--- OUTSIDE RECORDS SUMMARY | 2022-04-15 08:26 | XMS_ITS | Encounter Summary ---
:1945 [place] [address] Care Team Providers Name Role Phone Lovely Vicente MD Primary Care Provider Reason for Visit Reason Onset Date Comments Other 12/09/2016 RESULTS Encounter Details Date Type Department Care Team Description 12/09/2016 Telephone Dermatology at [facility] Halima Cadet MD Other (RESULTS) [address] [facility] [place] [address] [facility] [phone] [place], [place] [address] (Wo rk) Social History Tobacco [...] EDT Spoke with patient's , Kisha (personal corporate representative). I advised her Don's pathology results [...] back. She can be reached back at [phone] documented in this encounter Plan of Treatment Upcoming Encounters Date Type Specialty Care Team Description 05/28/2022 Appointment Cardiology Zulma Dolan MD [facility] [address] [place], [place] [address] (Wo rk) 05/28/2022 Laboratory Appointment Lab 05/28/2022 Office Visit Cardiology Zulma Dolan MD [facility] [place] [address] Liz Poole PA [facility] [place] [address] 06/10/2022 Office Visit Dermatology Laura Scherer MD [facility] [address] [place], [place] [address] (Wo rk) documented as of this encounter Visit Diagnoses Not on filedocumented in this encounter Care Teams Twisting Machine Operator Relationship Specialty Start Date End Date Lovely Vicente MD PCP - General 04/16/[address] [place] [address] documented as of this encounter
--- OUTSIDE RECORDS SUMMARY | 2022-04-15 08:26 | XMS_ITS | Encounter Summary ---
:1945 Author Organization [facility] [place] [address] Care Team Providers Name Role Phone Lovely Vicente MD Primary Care Provider Encounter Details Date Type Department Care Team Description 07/10/2016 Telephone Dermatology at [facility] Rigoberto White III, [address] [place] [address] [facility] [phone] [facility] [place], [place] [address] (Wo rk) Social History Tobacco [...] Dolan MD [facility] [address] [place], [place] [address] (Wo rk) 05/28/2022 Laboratory Appointment Lab 05/28/2022 Office Visit Cardiology Zulma Dolan MD [facility] [place] [address] Liz Poole PA [facility] [place] [address] 06/10/2022 Office Visit Dermatology Laura Scherer MD [facility] [address] [place], [place] [address] (Wo rk) documented as of this encounter Visit Diagnoses Not on filedocumented in this encounter Care Teams Telemarketing Agent Relationship Specialty Start Date End Date Lovely Vicente MD PCP - General 04/16/15 [facility] [address] [place] [address] documented as of this encounter
--- OUTSIDE RECORDS SUMMARY | 2022-04-15 08:26 | XMS_ITS | Encounter Summary ---
:1945 [place] [address] Care Team Providers Name Role Phone Lovely Vicente MD Primary Care Provider Reason for Visit Auth/Cert Specialty Diagnoses / Procedures Referred By Contact Refer red To Contact Diagnoses STEMI (ST elevation myocardial infarction) NSTEMI STEMI Procedures CARDIAC CATHETERIZATION NAYE IPI Referral ID Status Reason Start Date Expiration Date Visits Requ ested Visits Authorized [id number] 1 1 Encounter Details Date Type Department Care Team Description 07/05/2017 Surgery Agency Sales Representative Jet Guan, CARDIAC CATHETERIZATION [facility] [place] [address] CARDIOLOGY DEPT. [phone] [place], [place] [address] (Wo rk) Social History Tobacco [...] this encounter Discharge Summaries Martha Teague S, AUTOMAT WATCHER - 07/14/2017 9:38 AM EST Inpatient - Discharge Summary Patient Name: Gregory Hoang Patient Age: 72 y.o. Birthdate: 1945 Language: [place] Islander Race: White Ethnicity: Not nor Admit [...] 1:20p Patient to follow-up with Director Of Slot Operations/heart failure team in one week. An appointment will be made for you. You may call [phone] Patient to follow-up with Cardiac Surgery, Dr. Yuan Webber, in ~ 4 weeks with CXR, EKG. Inpatient Provider Contact Information: [facility] Section of Cardiac Surgery [facility] [place] [address] FAX [phone] Discharge Diagnoses (Hospital Problems) Primary Diagnoses: CAD [...] performed by Manny Mcknight MD at [facility] OR ??? PRO CABG, ARTERIAL, SINGLE N/A 07/07/2017 @CABG, USING ARTERIAL GRAFT;SINGLE ARTERIAL GRAFT (WRVU 33.75) performed by Yuan Webber MD at [facility] OR ??? PRO CABG, ARTERY-VEIN, TWO N/A 07/07/2017 @CABG, TWO VENOUS GRAFTS & ARTERIAL GRAFT (WRVU 7.93) performed by Yuan Webber MD at [facility] OR ??? PRO COLONOSCOPY, REMV LESN, SNARE 01/16/2014 COLONOSCOPY, POLYPECTOMY, REMOVAL LESION BY SNARE performed by Nohemi Jaimes MD at [facility] ENDOSCOPY ??? PRO ENDOSCOPY W/VIDEO-ASST VEIN HARVEST, CABG Right 07/07/2017 ENDOSCOPIC HARVEST VEIN(S) FOR CABG (WRVU 0.31) performed by Yuan Webber MD at [facility] OR ??? PRO THYROIDECTOMY 03/28/2013 THYROIDECTOMY, TOTAL OR COMPLETE performed by Manny Mcknight MD at [facility] OR Prior To Admission Medications Prescriptions Prior to Admission Medication Sig Dispense Refill Last Dose ??? levothyroxine (SYNTHROID) 175 mcg Tablet Take 1 tablet by mouth daily. 90 tablet 3 07/05/2017 [id number] ??? ascorbic acid, vitamin C, (VITAMIN C) [...] hospital and ruled infor non-ST segment elevation CO. This almost certainly represents the residual of [...] course, he was taken emergently to the supervisor laboratory for an ongoing STEMI. An IABP was [...] not take or discontinue any prescription or wwjo-nrv-nxyywrp medications without asking your doctor or pharmacist [...] and/or the Cardiac Surgery Physician Sales And Customer Relations Rep Team may be reached at . Weight: [...] Dr. Yuan Webber. You may use a [place] or treadmill but avoid any pulling [...] with the surgeon. Do not ride motorcycles, [employer] tractors or horses. Avoid the use of [...] should resume a low fat, low cholesterol, [place] Heart [employer] Diet/Diabetic diet. Driving: No driving [...] 1:20p Patient to follow-up with Director Of Slot Operations/heart failure team in one week. Appointment will be made for you. You may call [phone] Patient to follow-up with Cardiac Surgery, Dr. [...] L Lab 3L [facility] [phone] 09/07/2017 4:00 PM Luz Prescott MD Endocrinology at [place] [phone] Future Orders Complete By Expires EKG 12 Lead [EKG1 Custom] 08/14/2017 02/13/2018 Process Instructions: Scheduling Instructions: Questions: Which DH location will this be performed?: [place] Is a rhythm strip needed?: No If EKG Reason is Pre-op Evaluation, indicate diagnosis for surgery.: XR Chest PA & Lateral (Generic) [[id number] [id number] Custom] 08/14/2017 02/13/2018 Process Instructions: Scheduling Instructions: Questions: Where will study be performed?: [place] Portable exam?: Reason for exam and clinical history: CABG x 3 Other pertinent information: Stat read required?: Date of injury if applicable: Requested Time: Referral to Cardiac Rehab [RIC405 Custom] As directed Process Instructions: If no progress note charted, please enter Clinical details in comments. Scheduling Instructions: Questions: My question or request is: s/p CABG. Cardiac rehab at [facility] Referral to Home Health - at DISCHARGE [UQF9089 CPT(R)] As directed Process Instructions: Scheduling Instructions: Comments: DOCUMENTATION FOR VNA SERVICES (INCLUDING THOSE PATIENTS WITH MEDICARE COVERAGE REQUIRING HOME VNA SERVICES AND/OR HOSPICE SERVICES) PATIENT'S LOCATION: Gregory Hoang [address] [place] [address] [place] [address] (home) Telephone Information: Lot Porter's Name: self In discussion with the attending physician, it is certified that this patient is under their care and that they, or a Nurse Practitioner, or Physician Sales And Customer Relations Rep who is working directly with them, had [...] [facility] ([facility] [place] [facility] in [place]) PHONE: [phone] FAX: [phone] RN orders: Cardiopulmonary assessment, incisional assessment, assess vital signs, assessment of rehab progress, medication management and effectiveness, home safety evaluation. Please draw INR if indicated and send result to:Dr Vicente [phone] PT ORDERS: Continue rehab for endurance, gait stability and strength with mobility and transfers. Home safety evaluation. Home exercise program if appropriate. Start of Care Date:24-48 hours after discharge SPECIAL INSTRUCTIONS: For any follow up questions, needs, or issues please call the Cardiac Surgery Office at [phone] FOR MEDICARE ONLY: (please delete this section [...] OR AFTER 07/17/2017 Signed: Martha Teague APRN [facility] Section of Cardiac Surgery [facility] [place] [address] FAX [phone] Date: 07/14/2017 CC: MD Ivania Cr Betsy, PA [address] [place] [phone] documented in this encounter Discharge Instructions Discharge [...] not take or discontinue any prescription or xwgo-gaz-rejffzq medications without asking your doctor or pharmacist [...] and/or the Cardiac Surgery Physician Sales And Customer Relations Rep Team may be reached at . ?? [...] Dr. Yuan Webber. You may use a [place] or treadmill but avoid any pulling [...] with the surgeon. Do not ride motorcycles, [employer] tractors or horses. Avoid the use of [...] should resume a low fat, low cholesterol, [place] Heart [employer] Diet/Diabetic diet. ?? Driving: No [...] ?? Patient to follow-up with Director Of Slot Operations/heart failure team in one week. An appointment has been made for you, you can call [phone] ?? Patient to follow-up with Cardiac Surgery, [...] L Lab 3L [facility] [phone] ?? 09/07/2017 4:00 PM Luz Prescott MD Endocrinology at [place] [phone] Future Orders Complete By Expires ?? EKG 12 Lead [EKG1 Custom] 08/14/2017 02/13/2018 ?? Process Instructions: ? Scheduling Instructions: ? Questions: ? Which location will this be performed?: [place] ?? Is a rhythm strip needed?: No ?? If EKG Reason is Pre-op Evaluation, indicate diagnosis for surgery.: ?? XR Chest PA & Lateral (Generic) [[id number] Custom] 08/14/2017 02/13/2018 ?? Process Instructions: ? Scheduling Instructions: ? Questions: ? Where will study be performed?: [facility] ?? Portable exam?: ?? Reason for exam and clinical history: CABG x 3 ?? Other pertinent information: ?? Stat read required?: ?? Date of injury if applicable: ?? Requested Time: ?? Referral to Cardiac Rehab [[id number] Custom] As directed ? Process Instructions: ?? [...] RN - 07/14/2017 2:34 PM EST The patient/c s s representative has been provided a list of Home Health Agencies/DME vendors which serve their preferred geographic area. A letter describing our affiliations was reviewed with them and theywere educated about their right to choose where referrals are placed. Patient requests referral to [facility]. PHONE: [phone] FAX: [phone] Expected date of discharge: 07/14 Referral routed to the Basting Machine Operator for matching with agency/vendor and [...] [facility] Diabetes Management Pager [phone] minutes of this 35 minute visit was spent with the patient in counseling on diabetes and treatment plan, reviewing all glucose and insulin data as well as relevant laboratory results with the patient, and coordination of care on the inpatient unit including nursing and primary team. Zulma Andres RN - 07/14/2017 10:30 AM EST The patient/c s s representative has been provided a list of Home Health Agencies/DME vendors which serve their preferred geographic area. A letter describing our affiliations was reviewed with them and theywere educated about their right to choose where referrals are placed. Patient requests referral to : Yasmani Munguia ([facility] [place] [facility]-is in [place]) PHONE: [phone] FAX: [phone]. Expected date of discharge: 07/14/17 Referral routed to the Basting Machine Operator for matching with agency/vendor and [...] hours. If BG remains greater than 240, ioppaw46 units (no more than three times) &??call [...] #6 s/p CABG X3. FSBG 80 at [place], reports no symptoms but did drink some [...] [facility] [place] Endocr[facility] Diabetes Management Pager [phone] minutes of this 25 minute visit [...] of infiltration/extravasation Discussed plan of care with HELPER TEACHER and RN. Elevate exrtemity and apply intermittent Warm compresses. Name of MD contacted Dr. Shaw Brown 07/13/2017 @ 0655 Name of RN contacted Ale Rangel RN Name of Pharmacist if consulted NA Name of Plastics MD ( if consulted) NA (Mandatory photo for infiltrations/ extravasations scoring a stage 2 or greater, but recommended forstage 1)( include measuring tape and identifier in the photo) HEADER OPERATOR CARING FOR THIS PATIENT WILL CONTINUE [...] measuring tape and identifier in the photo) HEADER OPERATOR CARING FOR THIS PATIENT WILL CONTINUE [...] regard to both infiltrates addressed by this justowriter operator.All of Mr. Hoang's responses were entirely appropriate. Images of infiltrates attached here. Martha Sharp APRN - 07/13/2017 8:01 AM EST Cardiac Surgery Progress Note: ID: [id number] 72 year old male POD#6 s/p CABGx3 [...] discharge. ?? I have met with the patient/c s s representative to discuss discharge planning needs. I have provided the [facility], Office of Care Management letter from the Director Family pertaining to rehab referrals. I have also provided a letter describing our affiliations within the [facility] and educated them about their right to choose where referrals are placed. ?? I reviewed the different levels of rehab including SNF, swing, acute and LTAC with the patient/c s s representative. ?? The patient/c s s representative has been provided a list of facilities within their preferred geographic area. ?? I have requested that the patient/c s s representative provide at least three choices for referral. ?? The patient/c s s representative have requested referrals to: ?? 1. . ?? 2. [facility] ?? 3. More to be entered ?? Expected date of discharge: 07/14 Note routed to Basting Machine Operator who will communicate referrals to [...] hours. If BG remains greater than 240, yzatms23 units (no more than three times) & [...] hours. If BG remains greater than 240, zyorbx88 units (no more than three times) & call for new basal insulin orders. ??If less than 240 after two hours, give no insulin and resume prior schedule. Will continue to follow Katerin Azul APRN [facility] Endocrinology Diabetes Management Pager [phone] 20 minutes of this 35 minute visit was spent with the patient in counseling on diabetes and treatment plan, reviewing all glucose and insulin data as well as relevant laboratory results with the patient, and coordination of care on the inpatient unit including nursing and primary team. Makayla Stevenson APRN - 07/12/2017 9:52 AM EST Cardiac Surgery Progress Note: ID: [id number] 72 year old male POD#5 s/p CABGx3 [...] hours. If BG remains greater than 240, hizsds69 units (no more than three times) & [...] AM EST Cardiac Surgery Progress Note: ID: [id number] 72 year old male POD#4 s/p CABGx3 [...] hours. If BG remains greater than 240, ewggju38 units (no more than three times) & [...] AM EST Cardiac Surgery Progress Note: ID: [id number] 72 year old male POD#3 s/p CABGx3 [...] Gas) No results found for: PHART, PO2ART, NQG5BFN Assessment/Plan: 72 year old male POD#3 s/p [...] Mami Thao - 07/09/2017 6:29 PM EST Microeconomics Professor Encounter Note Patient Name: Gregory Hoang : [id number] MR#: [id number] Admit Date: 07/05/2017 4:20 PM Hospital Day 4 days Narrative: Patient was sitting in chair, hugging heart pillow, opened his eyes, nodding to come into room Assessment: Patient was sleepy. Intervention and Outcome: Introduced aml analyst services and patient reached his hand out in appreciation. Follow-up: Microeconomics Professor remains available for support. Time in Direct [...] 10:45 AM EST Report given to staffing operations manager to cover care Maddison Cee PA - 07/09/2017 9:00 AM EST Cardiac Surgery Progress Note: ID: [id number] 72 year old male POD#2 s/p CABGx3 [...] when IABP d/c'ed. Gretchen Carolina, PT Pager [phone] Maddison Cee PA - 07/08/2017 11:27 AM EST Cardiac Surgery Progress Note: ID: [id number] 72 year old male POD#1 s/p CABGx3 [...] in place in R femoral. No hematoma. DRIVING TEACHER- Intact Psych- Anxious Skin- Dry, no [...] intact. IABP in place in R femoral. DRIVING TEACHER- Intact Psych- Anxious Skin- Dry, no [...] Day 1 day ) Service: S2 ID: Gregoyr Hoang is a 72 y.o. [...] (pgr. [phone]) . CARDIOLOGY ATTENDING NOTE Patient: Gergory Hoang Date of Service: 07/06/2017 Date of [...] note for details. DAPHNE SHAHID MD Pager [phone] ClarisaJet lynn MD - 07/05/2017 6:48 PM EST Preliminary Cardiac Catheterization Procedure Note: Procedure(s) performed: Left heart cath, IABP insertion Access: Right CUPROUS CHLORIDE OPERATOR-->8fr IABP A time-out was conducted prior [...] effect. Heparin gtt maintained. Pt transferred to supervisor laboratory. documented in this encounter H&P Notes Daphne Shahid MD - 07/05/2017 6:08 PM EST CARDIOLOGY HISTORY & PHYSICAL EXAM Date of Admission: 07/05/2017 ( Hospital Day 0 days ) Responsible Attending: Daphne Shahid MD PCP: Lovely Vicente MD PCP#: [phone] Patient Active Problem List Diagnosis Code ??? [...] transferred to [facility]. While there, continued sob, question of chest pain. Stat TTE showing WMA diffusely and EF around 20%. No significant valvular disease. Taken to the supervisor laboratory urgently for ongoing STEMI. [facility] [...] monitor I/O - s/p lasix in the supervisor laboratory, redose to aim net neg 1L by [...] Medicine, PGY-2 Cardiology S1, Team Pager # [phone] CARDIOLOGY ATTENDING NOTE Patient: Gregory Hoang Date [...] amenable for PCI. DAPHNE SHAHID MD Pager [phone] documented in this encounter Miscellaneous Notes Consult Note - Daphne Shahid MD - 07/14/2017 11:46 AM EST Heart Failure Service Inpatient Consult Note Gregory Hoang Date of : 1945 Age: 72 y.o. Today's date: 07/14/17 PCP: Lovely Vicente MD NURSERY SCHOOL ATTENDANT: None [facility] [...] performed by Manny Mcknight MD at [facility] OR ??? PRO CABG, ARTERIAL, SINGLE N/A 07/07/2017 @CABG, USING ARTERIAL GRAFT;SINGLE ARTERIAL GRAFT (WRVU 33.75) performed by Yuan Webber MD at [facility] OR ??? PRO CABG, ARTERY-VEIN, TWO N/A 07/07/2017 @CABG, TWO VENOUS GRAFTS & ARTERIAL GRAFT (WRVU 7.93) performed by Yuan Webber MD at [facility] OR ??? PRO COLONOSCOPY, REMV LESN, SNARE 01/16/2014 COLONOSCOPY, POLYPECTOMY, REMOVAL LESION BY SNARE performed by Nohemi Jaimes MD at [facility] ENDOSCOPY ??? PRO ENDOSCOPY W/VIDEO-ASST VEIN HARVEST, CABG Right 07/07/2017 ENDOSCOPIC HARVEST VEIN(S) FOR CABG (WRVU 0.31) performed by Yuan Webber MD at [facility] OR ??? PRO THYROIDECTOMY 03/28/2013 THYROIDECTOMY, TOTAL OR COMPLETE performed by Manny Mcknight MD at [facility] OR Outpt Meds: Current Outpatient [...] 1 dose. Starting tomorrow, alldosing per Dr iVcente 60 tablet 1 ??? cephalexin (KEFLEX) 500 [...] following studies: EKG 07/14/17: NSR 75 bpm, MOOSE HUNTER anterior infarct, LAD CXR 07/11/17: FINDINGS: Sternotomy wires. The patient has been extubated, left chest tube removed, and Whitharral-Suzi catheter removed since the 07/07/2017 study. Atelectasis [...] initiating spironolactone The pt was discussed with Kono. Jaden Kelley MD Folder Machine Operator Pager [phone] CARDIOLOGY ATTENDING NOTE Patient: Gregory Hoang Date [...] heart failure clinic. DAPHNE SHAHID MD Pager [phone] Plan of Care - Alden Chavarria PTA [...] home with assist Alden Chavarria PTA Pager: [phone] Inpatient Physical Therapy Problem: Acute Rehab Services [...] sit/sit to supine -- Bed Mobility Goal, Melrude Level supervision required -- Bed Mobility Goal, [...] - 3 days -- Gait Training Goal, Melrude Level supervision required -- Gait Training Goal, [...] days -- Transfer Training Goal, Activity Type gqo-oz-kzrta/gomkv-uj-xmt;xxd-wb-wckmw/eqpem-fp-mle;toilet -- Transfer Train Goal, Melrude Level supervision required -- Transfer Training Goal, [...] keeping present for 2 days per family. Cloth Classer noted of frustrations, house keeping sent to room. Patient offered showered twice, refused. at bedside, frustrated that shower not complete, informed that patient had refused several times. requesting to see TELEVISION ANNOUNCER, paged sent to Martha, will come to bedside (middle of consult). not willing to wait, Martha notified that family had gone home. Encouraged to come for morning rounds a t 8am. Diabetes team at bedside - insulin adjustments made. Call cabello in reach. Continue to monitor. PLAN MOVING FORWARD: Ambulate, dressing changes BID, Please change drsg at 4am per Martha TELEVISION ANNOUNCER request. INDIVIDUALIZED FALL PREVENTION INTERVENTIONS: Patient-specific fall [...] levels on the lower side, 60ml of Petroleum juice given after a FS of 80. [...] 07/13/17 0502 Interdisciplinary Rounds/Family Conf Participants rehabilitation caseworker;dietitian/nutrition services;nursing;occupational therapy;patient;pharmacy;physical therapy;physician Plan of Care [...] monitoring required during toileting and ADLs]: RN HELPER TEACHER Surveillance [continuous indirect monitoring]: Barrett Monitor [facility] GOAL OUTCOME EVALUATION: Goal: Fall Prevention-Safe Patient Handling 07/12/1761107/12/17 0800 07/12/17 1600 Daily Care Interventions Self-Care [...] Anticipated Discharge Disposition: home with assist Pager: [phone] CLARISSA SEGAL, PT 07/12/2017 Physical Therapy Rehabilitation [...] to sit/sit to supine Bed Mobility Goal, Melrude Level supervision required Bed Mobility Goal, Additional Goal adheres to psternal precautions for transfer Goal: Gait Training Goal Stand Alone Therapy Goal Outcome: Ongoing (Interventions Implemented as Appropriate) 07/12/17 1225 Gait Training Goal Gait Training Goal, Date Established 07/12/17 Gait Training Goal, Time to Achieve 2 - 3 days Gait Training Goal, Melrude Level supervision required Gait Training Goal, Assist [...] 3 days Transfer Training Goal, Activity Type gma-eq-ntifk/zxwlc-st-hbf;odd-hj-yribn/scdxn-bz-wyf;toilet Transfer Train Goal, Melrude Level supervision required Transfer Training Goal, Additional [...] IV site, amio to other piv and AS400 PROGRAMMER ANALYST at bedside to help assess, IV [...] care (reference Cardiac Surgery (Adult) [facility]). 07/12/17 0612 Cardiac Surgery Problems Assessed (Cardiac Surgery) all [...] staff, he stood and marched in place. Bland weak, wanting to sit back down. Remained [...] Health/Prescription Coverage: Primary Insurance: MEDICARE Secondary Insurance: [employer] [place] Prescription Coverage: yes Preferred Pharmacy: [facility] [place] Other: none Primary Care Provider: Lovely Vicente MD [phone] Patient/Caregiver Goals of Treatment:live and get my breath back Potential Needs for Transition of Care: Rehab/SNF: [facility] Home Health: NA DME: TBD Dialysis: na Community Resources: available Transportation: yes Other: none Anticipated Barriers to Discharge/Special Considerations: none Plan: Likely SNF Rehab before home A member of the Care Management team will continue to monitor progress, follow for continuity of care and assist with transition of care planning. ERLIN Weiss Pager: [phone] Consult Note - Katerin Azul RN - [...] Katerin Azul APRN Endocrinology Diabetes Management Pager [phone] Plan of Care - Stephanie Godoy RN [...] Operative Note Patient Name: Gregory Hoang : [id number] MR#: [id number] Case Date: 07/07/2017 Surgeon: Surgeon(s) and Role: * Yuan Webber MD - Primary * Michael Drake PA - Physician Sales And Customer Relations Rep * Linda Flores PA - Physician Sales And Customer Relations Rep Preoperative diagnosis: 3VD Postoperative diagnosis: CAD, severe [...] Operative Note Patient Name: Gregory Hoang : [id number] MR#: [id number] Case Date: 07/07/2017 Surgeon: Surgeon(s) and Role: * Yuan Webber MD - Primary * Michael Draek PA - Physician Sales And Customer Relations Rep * Linda Flores PA - Physician Sales And Customer Relations Rep Preoperative diagnosis: 3VD Postoperative diagnosis: CAD, severe [...] wall L98.9 ??? Goiter E04.9 ??? MARIA VICOTRIA (obstructive sleep apnea) on CPAP G47.33 ??? [...] major CV events such as , stroke, CO, repeat revascularization compared to PCI). In this [...] Hahn, MS3 [employer] [facility] Cardiology S1 (Pager [phone]) Plan of Care - Emelia Ibarra RN [...] hospital and ruled infor non-ST segment elevation CO. This almost certainly represents the residual of [...] [facility] ENDOSCOPY ??? PRO THYROIDECTOMY 03/28/2013 THYROIDECTOMY, TOTAL OR COMPLETE performed by Manny Mcknight MD at [facility] MAIN OR Social History: Social [...] and communicating with other involved physicians Yuan Webebr MD [phone] Med Student Progress Note - Katty Hahn [...] major CV events such as , stroke, CO, repeat revascularization compared to PCI). In this [...] or BiPAP - s/p lasix in the supervisor laboratory, was net -1.5L - s/p plavix load, [...] insulin drip - hold metformin - f/u [facility] ?? #Home Meds - continue levothyroxine 175mcg - CPAP at night ?? # Routine - DVT PPx: heparin drip - Diet: Healthy heart diet, NPO at midnight for CABG tomorrow - Code Status: FULL - Dispo: CVCC Katty Hahn, M3 [facility] Cardiology S1 (Pager [phone]) Plan of Care - Stephanie Godoy RN - 07/06/2017 5:00 AM EST Problem: Patient Care Overview Goal: Plan of Care Review 07/06/17 2191 Coping/Psychosocial Plan Of Care Reviewed With patient;family [...] in urinal without difficulty. Lasix given in supervisor laboratory, 1.4 L out at this time. Pt [...] Zulma Dolan MD [facility] [place], [place] [address] (Wo rk) 05/28/2022 Laboratory Appointment Lab 05/28/2022 Office Visit Cardiology Zulma Dolan MD [facility] [place] [address] Liz Poole PA [facility] [place] [address] 06/10/2022 Office Visit Dermatology Laura Scherer MD [facility] DR TEJA GR-DERMAT OLOGY [place], [place] [address] (Wo rk) Scheduled Orders Name [...] procedure are i n the results section. DOCTOR OF DENTAL SURGERY SCAN 07/15/2017 12:00 Res ults for this [...] Routine 07/08/2017 4:00 Results f or this ([facility] AM EST procedure are i n the [...] this ([facility] PM EST procedure are i n the [...] this ([facility]) PM EST procedure are i n the [...] 2017 EXAMINATION: XR CHEST PA AND LATERAL (lensgenIC) CLINICAL HISTORY: CABG x 3 TECHNIQUE: PA [...] Teague APRN IMG DX ORDERABLES SCAN DOC: DOCTOR OF DENTAL SURGERY (07/15/2017 12:00 AM EST) Narrative 07/15/2017 12:00 [...] POC Glucose 186 65 - 199 [facility] mg/dL [facility] Comment: Supplemental ranges: <140 mg/dL before meals <180 mg/dL all other times of the day Specimen Anatomical Collection Method Collection Time Receive d Time (Source) Location / / Volume Laterality Blood specimen 07/14/2017 11:56 7 (specimen) AM EST 11:56 AM EST Yuan Webber MD POINT OF CARE TEST ORDERABLE S Performing Organization Address City/State/[place] [address] POCT Glucose (07/14/2017 7:52 AM EST) athologist Signature POC Glucose 126 65 - 199 [facility] Comment: Supplemental ranges: <140 mg/dL before meals <180 mg/dL all other times of the day Specimen Anatomical Collection Method Collection Time Receive d Time (Source) Location / / Volume Laterality Blood specimen 07/14/2017 7:52 AM 017 7:52 (specimen) EST AM EST Yuan Webber MD POINT OF CARE TEST ORDERABLE S Performing Organization Address City/[facility]/[place] [address] (ABNORMAL) Prothrombin Time (07/14/2017 [...] HEMATOLOGY ORDERABLES Performing Organization Address City/[facility] Code [facility] [place] [address] Potassium (07/14/2017 4:46 AM EST) athologist Signature Potassium 4.3 3.5 - 5.0 [facility] mmol/L [facility] Comment: Please note: ??Patients with [...] Address City/State/ZIP Code Phon e Number [address] POCT Glucose (07/14/2017 4:34 AM EST) athologist Signature POC Glucose 115 65 - 199 [place] mg/dL [facility] Comment: Supplemental ranges: <140 mg/dL before meals <180 mg/dL all other times of the day Specimen Anatomical Collection Method Collection Time Receive d Time (Source) Location / / Volume Laterality Blood specimen 07/14/2017 4:34 AM 017 4:34 (specimen) EST AM EST Yuan Webber MD POINT OF CARE TEST ORDERABLE S Performing Organization Address City/[facility]/ZIP Code Phon e Number [address] POCT Glucose (07/13/2017 11:33 PM EST) athologist Signature POC Glucose 132 65 - 199 [place] mg/dL [facility] Comment: Supplemental ranges: <140 mg/dL before meals <180 mg/dL all other times of the day Specimen Anatomical Collection Method Collection Time Receive d Time (Source) Location / / Volume Laterality Blood specimen 07/13/2017 11:33 7 (specimen) PM EST 11:33 PM EST Yuan Webber MD POINT OF CARE TEST ORDERABLE S Performing Organization Address City/[facility]/ZIP Code [place] [address] POCT Glucose (07/13/2017 9:25 PM EST) athologist Signature POC Glucose 121 65 - 199 [place] mg/dL [facility] Comment: Supplemental ranges: <140 mg/dL before meals <180 mg/dL all other times of the day Specimen Anatomical Collection Method Collection Time Receive d Time (Source) Location / / Volume Laterality Blood specimen 07/13/2017 9:25 PM 017 9:25 (specimen) EST PM EST Yuan Webber MD POINT OF CARE TEST ORDERABLE S Performing Organization Address City/State/ZIP Code Phon e Number [address] POCT Glucose (07/13/2017 4:55 PM EST) athologist Signature POC Glucose 79 65 - [address] [facility] mg/dL [facility] Comment: Supplemental ranges: <140 mg/dL before meals <180 mg/dL all other times of the day Specimen Anatomical Collection Method Collection Time Receive d Time (Source) Location / / Volume Laterality Blood specimen 07/13/2017 4:55 PM 017 4:55 (specimen) EST PM EST Yuan Webber MD POINT OF CARE TEST ORDERABLE S Performing Organization Address City/State/ZIP Code Phon e Number [address] POCT Glucose (07/13/2017 11:16 AM EST) athologist Signature POC Glucose 163 65 - [address] [facility] mg/dL [facility] Comment: Supplemental ranges: <140 mg/dL before meals <180 mg/dL all other times of the day Specimen Anatomical Collection Method Collection Time Receive d Time (Source) Location / / Volume Laterality Blood specimen 07/13/2017 11:16 7 (specimen) AM EST 11:16 AM EST Yuan Webber MD POINT OF CARE TEST ORDERABLE S Performing Organization Address City/State/ZIP Code Phon e Number [address] POCT Glucose (07/13/2017 8:07 AM EST) athologist Signature POC Glucose 96 65 - 199 [place] mg/dL [facility] Comment: Supplemental ranges: <140 mg/dL before meals <180 mg/dL all other times of the day Specimen Anatomical Collection Method Collection Time Receive d Time (Source) Location / / Volume Laterality Blood specimen 07/13/2017 8:07 AM 017 8:07 (specimen) EST AM EST Yuan Webber MD POINT OF CARE TEST ORDERABLE S Performing Organization Address City/State/ZIP Code Phon e Number [address] (ABNORMAL) Prothrombin Time [...] Organization Address City/State/[place] [address] (ABNORMAL) Basic Metabolic Panel (non-fasting) (07/13/2017 4:26 AM EST) athologist Signature Glucose Lvl 95 65 - 199 [facility] mg/dL [facility] [...] or in patients with acute kidney failure. http://Hopscot.ch/DHnkdep http://Hopscot.ch/DHMCnkf Specimen Anatomical Collection Method Collection Time Receive d Time (Source) Location / / Volume Laterality Blood specimen 07/13/2017 4:26 AM 017 4:46 (specimen) EST AM EST Resulting Agency Comment Spec In Lab Makayla Wilson APRN CHEMISTRY ORDERABLES Performing Organization Address City/State/ZIP Code Phon e Number [address] POCT Glucose (07/13/2017 3:52 AM EST) athologist Signature POC Glucose 93 65 - 199 [facility]/dL [facility] Comment: Supplemental ranges: <140 mg/dL before meals <180 mg/dL all other times of the day Specimen Anatomical Collection Method Collection Time Receive d Time (Source) Location / / Volume Laterality Blood specimen 07/13/2017 3:52 AM 017 3:52 (specimen) EST AM EST Yuan Webber MD POINT OF CARE TEST ORDERABLE S Performing Organization Address City/State/ZIP Code Phon e Number [address] POCT Glucose (07/13/2017 12:21 AM EST) athologist Signature POC Glucose 80 65 - 199 [facility] mg/dL [facility] Comment: Supplemental ranges: <140 mg/dL before meals <180 mg/dL all other times of the day Specimen Anatomical Collection Method Collection Time Receive d Time (Source) Location / / Volume Laterality Blood specimen 07/13/2017 12:21 7 (specimen) AM EST 12:21 AM EST Yuan Webber MD POINT OF CARE TEST ORDERABLE S Performing Organization Address City/State/ZIP Code Phon e Number [address] POCT Glucose (07/12/2017 8:22 PM EST) athologist Signature POC Glucose 119 65 - 199 [place] mg/dL [facility] Comment: Supplemental ranges: <140 mg/dL before meals <180 mg/dL all other times of the day Specimen Anatomical Collection Method Collection Time Receive d Time (Source) Location / / Volume Laterality Blood specimen 07/12/2017 8:22 PM 017 8:22 (specimen) EST PM EST Yuan Webber MD POINT OF CARE TEST ORDERABLE S Performing Organization Address City/[facility]/ZIP Code Phon e Number [address] POCT Glucose (07/12/2017 4:02 PM EST) athologist Signature POC Glucose 114 65 - 199 [place] mg/dL [facility] Comment: Supplemental ranges: <140 mg/dL before meals <180 mg/dL all other times of the day Specimen Anatomical Collection Method Collection Time Receive d Time (Source) Location / / Volume Laterality Blood specimen 07/12/2017 4:02 PM 017 4:02 (specimen) EST PM EST Yuan Webber MD POINT OF CARE TEST ORDERABLE S Performing Organization Address City/State/ZIP Code Phon e Number [address] POCT Glucose (07/12/2017 11:28 AM EST) P athologist Signature POC Glucose 164 65 - 199 [place] mg/dL [facility] Comment: Supplemental ranges: <140 mg/dL before meals <180 mg/dL all other times of the day Specimen Anatomical Collection Method Collection Time Receive d Time (Source) Location / / Volume Laterality Blood specimen 07/12/2017 11:28 7 (specimen) AM EST 11:28 AM EST Yuan Webber MD POINT OF CARE TEST ORDERABLE S Performing Organization Address City/State/ZIP Code Phon e Number [address] POCT Glucose (07/12/2017 7:34 AM EST) athologist Signature POC Glucose 109 65 - 199 [facility] Comment: Supplemental ranges: <140 mg/dL before meals <180 mg/dL all other times of the day Specimen Anatomical Collection Method Collection Time Receive d Time (Source) Location / / Volume Laterality Blood specimen 07/12/2017 7:34 AM 017 7:34 (specimen) EST AM EST Yuan Webber MD POINT OF CARE TEST ORDERABLE S Performing Organization Address City/State/[place] [address] (ABNORMAL) Basic Metabolic Panel (non-fasting) (07/12/2017 4:11 AM EST) athologist Signature Glucose Lvl 92 65 - 199 [facility] Comment: [...] or in patients with acute kidney failure. http://Hopscot.ch/DHnkdep http://Hopscot.ch/DHMCnkf Specimen Anatomical Collection Method Collection Time Receive d Time (Source) Location / / Volume Laterality Blood specimen 07/12/2017 4:11 AM 017 8:57 (specimen) EST AM EST Resulting Agency Comment Spec In Lab Makayla Urich STACIE CHEMISTRY ORDERABLES Performing Organization Address [facility] [place] [address] (ABNORMAL) Prothrombin Time (07/12/2017 [...] [place] STACIE HEMATOLOGY ORDERABLES Performing Organization Address [facility] Phon e Number [address] Potassium (07/12/2017 4:11 AM EST) P athologist Signature Potassium 3.8 3.5 - 5.0 [facility] mmol/L [facility] Comment: Please note: ??Patients with [...] ORDERABLES Performing Organization Address City/[facility]/ZIP [facility] Phon e Number [address] POCT Glucose (07/12/2017 4:10 AM EST) athologist Signature POC Glucose 90 65 - 199 [facility]/dL [facility] Comment: Supplemental ranges: <140 mg/dL before meals <180 mg/dL all other times of the day Specimen Anatomical Collection Method Collection Time Receive d Time (Source) Location / / Volume Laterality Blood specimen 07/12/2017 4:10 AM 017 4:10 (specimen) EST AM EST Yuan Webber MD POINT OF CARE TEST ORDERABLE S Performing Organization Address City/[facility]/ZIP Code Phon e Number [address] POCT Glucose (07/11/2017 11:57 PM EST) athologist Signature POC Glucose 98 65 - 199 [facility]/dL [facility] Comment: Supplemental ranges: <140 mg/dL before meals <180 mg/dL all other times of the day Specimen Anatomical Collection Method Collection Time Receive d Time (Source) Location / / Volume Laterality Blood specimen 07/11/2017 11:57 7 (specimen) PM EST 11:57 PM EST Yuan Webber MD POINT OF CARE TEST ORDERABLE S Performing Organization Address City/[facility]/ZIP Code Phon e Number [address] POCT Glucose (07/11/2017 8:32 PM EST) P athologist Signature POC Glucose 146 65 - 199 [place] mg/dL [facility] Comment: Supplemental ranges: <140 mg/dL before meals <180 mg/dL all other times of the day Specimen Anatomical Collection Method Collection Time Receive d Time (Source) Location / / Volume Laterality Blood specimen 07/11/2017 8:32 PM 017 8:32 (specimen) EST PM EST Yuan Webber MD POINT OF CARE TEST ORDERABLE S Performing Organization Address City/State/[place] [address] XR Chest PA & [...] e xtubated, left chest tube removed, and Whitharral-Suzi catheter removed since the study. Atelectasis at [...] e xtubated, left chest tube removed, and Whitharral-Suzi catheter removed since the study. Atelectasis at [...] (H) 65 - 199 [place] mg/dL [facility] Comment: Supplemental ranges: <140 mg/dL before meals <180 mg/dL all other times of the day Specimen Anatomical Collection Method Collection Time Receive d Time (Source) Location / / Volume Laterality Blood specimen 07/11/2017 4:05 PM 017 4:05 (specimen) EST PM EST Yuan Webber MD POINT OF CARE TEST ORDERABLE S Performing Organization Address City/[facility]/ZIP Code Phon e Number [address] POCT Glucose (07/11/2017 11:55 AM EST) athologist Signature POC Glucose 176 65 - 199 [place] mg/dL [facility] Comment: Supplemental ranges: <140 mg/dL before meals <180 mg/dL all other times of the day Specimen Anatomical Collection Method Collection Time Receive d Time (Source) Location / / Volume Laterality Blood specimen 07/11/2017 11:55 7 (specimen) AM EST 11:55 AM EST Yuan Webber MD POINT OF CARE TEST ORDERABLE S Performing Organization Address City/State/[place] [address] POCT Glucose (07/11/2017 7:53 AM EST) athologist Signature POC Glucose 189 65 - 199 [place] mg/dL [facility] Comment: Supplemental ranges: <140 mg/dL before meals <180 mg/dL all other times of the day Specimen Anatomical Collection Method Collection Time Receive d Time (Source) Location / / Volume Laterality Blood specimen 07/11/2017 7:53 AM 017 7:53 (specimen) EST AM EST Yuan Webber MD POINT OF CARE TEST ORDERABLE S Performing Organization Address City/[facility]/ZIP Code Phon e Number [address] POCT Glucose (07/11/2017 4:22 AM EST) athologist Signature POC Glucose 151 65 - 199 [place] mg/dL [facility] Comment: Supplemental ranges: <140 mg/dL before meals <180 mg/dL all other times of the day Specimen Anatomical Collection Method Collection Time Receive d Time (Source) Location / / Volume Laterality Blood specimen 07/11/2017 4:22 AM 017 4:22 (specimen) EST AM EST Yuan Webber MD POINT OF CARE TEST ORDERABLE S Performing Organization Address [facility]/[place] [address] Potassium (07/11/2017 2:20 AM EST) athologist Signature Potassium 4.5 3.5 - 5.0 [facility] mmol/L [facility] Comment: Please note: ??Patients with [...] City/[facility]/ZIP Code Phon e Number [address] POCT Glucose (07/11/2017 12:17 AM EST) athologist Signature POC Glucose 162 65 - 199 [place] mg/dL [facility] Comment: Supplemental ranges: <140 mg/dL before meals <180 mg/dL all other times of the day Specimen Anatomical Collection Method Collection Time Receive d Time (Source) Location / / Volume Laterality Blood specimen 07/11/2017 12:17 7 (specimen) AM EST 12:17 AM EST Yuan Webber MD POINT OF CARE TEST ORDERABLE S Performing Organization Address City/State/ZIP Code Phon e Number [address] POCT Glucose (07/10/2017 8:47 PM EST) athologist Signature POC Glucose 191 65 - 199 [place] mg/dL [facility] Comment: Supplemental ranges: <140 mg/dL before meals <180 mg/dL all other times of the day Specimen Anatomical Collection Method Collection Time Receive d Time (Source) Location / / Volume Laterality Blood specimen 07/10/2017 8:47 PM 017 8:47 (specimen) EST PM EST Yuan Webber MD POINT OF CARE TEST ORDERABLE S Performing Organization Address City/State/[place] [address] POCT Glucose (07/10/2017 4:06 PM EST) athologist Signature POC Glucose 131 65 - 199 [place] mg/dL [facility] Comment: Supplemental ranges: <140 mg/dL before meals <180 mg/dL all other times of the day Specimen Anatomical Collection Method Collection Time Receive d Time (Source) Location / / Volume Laterality Blood specimen 07/10/2017 4:06 PM 017 4:06 (specimen) EST PM EST Yuan Webber MD POINT OF CARE TEST ORDERABLE S Performing Organization Address City/State/ZIP Code Phon e Number [address] POCT Glucose (07/10/2017 3:08 PM EST) athologist Signature POC Glucose 151 65 - 199 [facility] mg/dL [facility] Comment: Supplemental ranges: <140 mg/dL before meals <180 mg/dL all other times of the day Specimen Anatomical Collection Method Collection Time Receive d Time (Source) Location / / Volume Laterality Blood specimen 07/10/2017 3:08 PM 017 3:08 (specimen) EST PM EST Yuan Webber MD POINT OF CARE TEST ORDERABLE S Performing Organization Address City/State/ZIP Code Phon e Number [address] POCT Glucose (07/10/2017 2:25 PM EST) athologist Signature POC Glucose 146 65 - 199 [place] mg/dL [facility] Comment: Supplemental ranges: <140 mg/dL before meals <180 mg/dL all other times of the day Specimen Anatomical Collection Method Collection Time Receive d Time (Source) Location / / Volume Laterality Blood specimen 07/10/2017 2:25 PM 017 2:25 (specimen) EST PM EST Yuan Webber MD POINT OF CARE TEST ORDERABLE S Performing Organization Address City/State/[place] [address] POCT Glucose (07/10/2017 1:23 PM EST) athologist Signature POC Glucose 166 65 - 199 [place] mg/dL [facility] Comment: Supplemental ranges: <140 mg/dL before meals <180 mg/dL all other times of the day Specimen Anatomical Collection Method Collection Time Receive d Time (Source) Location / / Volume Laterality Blood specimen 07/10/2017 1:23 PM 017 1:23 (specimen) EST PM EST Yuan Webber MD POINT OF CARE TEST ORDERABLE S Performing Organization Address City/State/[place] [address] POCT Glucose (07/10/2017 11:52 AM EST) athologist Signature POC Glucose 157 65 - 199 [facility] mg/dL [facility] Comment: Supplemental ranges: <140 mg/dL before meals <180 mg/dL all other times of the day Specimen Anatomical Collection Method Collection Time Receive d Time (Source) Location / / Volume Laterality Blood specimen 07/10/2017 11:52 7 (specimen) AM EST 11:52 AM EST Yuan Webber MD POINT OF CARE TEST ORDERABLE S Performing Organization Address City/State/ZIP Code Phon e Number [address] POCT Glucose (07/10/2017 11:01 AM EST) P athologist Signature POC Glucose 158 65 - 199 [place] mg/dL [facility] Comment: Supplemental ranges: <140 mg/dL before meals <180 mg/dL all other times of the day Specimen Anatomical Collection Method Collection Time Receive d Time (Source) Location / / Volume Laterality Blood specimen 07/10/2017 11:01 7 (specimen) AM EST 11:01 AM EST Yuan Webber MD POINT OF CARE TEST ORDERABLE S Performing Organization Address City/[facility]/ZIP Code Phon e Number [address] POCT Glucose (07/10/2017 9:54 AM EST) P athologist Signature POC Glucose 160 65 - 199 [place] mg/dL [facility] Comment: Supplemental ranges: <140 mg/dL before meals <180 mg/dL all other times of the day Specimen Anatomical Collection Method Collection Time Receive d Time (Source) Location / / Volume Laterality Blood specimen 07/10/2017 9:54 AM 017 9:54 (specimen) EST AM EST Yuan Webber MD POINT OF CARE TEST ORDERABLE S Performing Organization Address City/State/ZIP Code Phon e Number [address] POCT Glucose (07/10/2017 8:58 AM EST) P athologist Signature POC Glucose 183 65 - 199 [place] mg/dL [facility] Comment: Supplemental ranges: <140 mg/dL before meals <180 mg/dL all other times of the day Specimen Anatomical Collection Method Collection Time Receive d Time (Source) Location / / Volume Laterality Blood specimen 07/10/2017 8:58 AM 017 8:58 (specimen) EST AM EST Yuan Webber MD POINT OF CARE TEST ORDERABLE S Performing Organization Address City/State/ZIP Code Phon e Number [address] POCT Glucose (07/10/2017 8:01 AM EST) P athologist Signature POC Glucose 173 65 - 199 [place] mg/dL [facility] Comment: Supplemental ranges: <140 mg/dL before meals <180 mg/dL all other times of the day Specimen Anatomical Collection Method Collection Time Receive d Time (Source) Location / / Volume Laterality Blood specimen 07/10/2017 8:01 AM 017 8:01 (specimen) EST AM EST Yuan Webber MD POINT OF CARE TEST ORDERABLE S Performing Organization Address City/State/ZIP Code Phon e Number [address] POCT Glucose (07/10/2017 7:05 AM EST) athologist Signature POC Glucose 166 65 - 199 [place] mg/dL [facility] Comment: Supplemental ranges: <140 mg/dL before meals <180 mg/dL all other times of the day Specimen Anatomical Collection Method Collection Time Receive d Time (Source) Location / / Volume Laterality Blood specimen 07/10/2017 7:05 AM 017 7:05 (specimen) EST AM EST Yuan Webber MD POINT OF CARE TEST ORDERABLE S Performing Organization Address City/State/[place] [address] POCT Glucose (07/10/2017 6:00 AM EST) athologist Signature POC Glucose 162 65 - 199 [place] mg/dL [facility] Comment: Supplemental ranges: <140 mg/dL before meals <180 mg/dL all other times of the day Specimen Anatomical Collection Method Collection Time Receive d Time (Source) Location / / Volume Laterality Blood specimen 07/10/2017 6:00 AM 017 6:00 (specimen) EST AM EST Yuan Webber MD POINT OF CARE TEST ORDERABLE S Performing Organization Address City/State/ZIP Code Phon e Number [place] [id number] [facility] [address] Drive (ABNORMAL) Differential, Automated (07/10/2017 4:28 AM EST) [facility] Method Time Signature Neutrophils % 87.9 % [facility] LAB[facility] Neutr Abs (ANC) 10.70 (H) 1.70 - [facility] 6.10 [facility] x10(3)/[facility] L LABORATORY Lymphocytes % 3.9 % [facility] Lymphocytes Abs 0.5 (L) 0.9 - 3.2 [facility] x10(3)/[facility] LABORATORY Monocytes % 7.0 % [facility] Monocyte Abs 0.8 0.3 - 0.9 [facility] x10(3)/[facility] LABORATORY Eosinophils % 0.3 % [facility] [facility] Eosinophils Abs 0.0 0.0 - 0.4 [facility] x10(3)/[facility] LABORATORY Basophils % 0.2 % [facility] Basophils Abs 0.0 0.0 - 0.1 [facility] x10(3)/[facility] LABORATORY Immature Gran % 0.70 % [...] Gran Abs 0.08 (H) 0.00 - 0.04 x10(3)/[facility] LABORATORY Specimen Anatomical Collection Method Collection Time Receive d Time (Source) Location / / Volume Laterality Blood specimen 07/10/2017 4:28 AM 017 4:36 (specimen) EST AM EST Resulting Agency Comment Spec In Lab Yuan Webber MD HEMATOLOGY ORDERABLES Performing Organization Address City/[facility]/[place] [address] (ABNORMAL) Hemogram (07/10/2017 4:28 AM EST) Analysis Performed At Patho logist Time Signature WBC 12.2 (H) 4.0 - 9.5 [facility] x10(3)/[facility] LABORATORY RBC 3.31 (L) 4.58 - KATALINA ZHAORYAN 5.54 [facility] x10(6)/[facility] LABORATORY Hemoglobin 9.8 (L) 13.7 - [facility] 16.[facility] gm/dL [facility] Hematocrit 30.0 (L) 40.5 - [facility] 48.5 % [facility]ORY MCV 90.6 82.9 - [facility] 93.1 [facility] LABORATORY MCH 29.6 27.5 - [facility] 32.1 pg [facility]ATORY MCHC 32.7 32.0 - [facility] 35.7 gm/dL [facility]ORY Platelets 135 (L) 145 - 357 [facility] x10(3)/[facility] LABORATORY RDWSD 50.8 (H) 36.0 - [facility] 45.0 [facility] LABORATORY RDWCV 15.4 (H) 11.4 - [facility] 13.8 % [facility] LABORATORY MPV 10.0 7.6 - 12.9 [facility] LABORATORY nRBC % Auto 0.0 % [facility] nRBC Abs Auto 0.000 0.000 - [facility] 0.000 [facility] x10(3)/[facility] LABORATORY Specimen Anatomical Collection Method Collection Time Receive d Time (Source) Location / / Volume Laterality Blood specimen 07/10/2017 4:28 AM 017 4:36 (specimen) EST AM EST Resulting Agency Comment Spec In Lab Yuan Webber MD HEMATOLOGY ORDERABLES Performing Organization Address City/State/ZIP Code Phon e Number [address] (ABNORMAL) Basic Metabolic Panel (non-fasting) (07/10/2017 4:28 AM EST) P athologist Signature Glucose Lvl 178 65 - 199 [facility] mg/dL [facility] [...] or in patients with acute kidney failure. [email or web address] Specimen Anatomical Collection Method Collection Time Receive d Time (Source) Location / / Volume Laterality Blood specimen 07/10/2017 4:28 AM 017 4:36 (specimen) EST AM EST Resulting Agency Comment Spec In Lab Yuan Webber MD CHEMISTRY ORDERABLES Performing Organization Address City/State/[place] [address] POCT Glucose (07/10/2017 4:26 AM EST) P athologist Signature POC Glucose 176 65 - 199 [facility] mg/dL [facility] LABORATORY Comment: Supplemental ranges: <140 mg/dL before meals <180 mg/dL all other times of the day Specimen Anatomical Collection Method Collection Time Receive d Time (Source) Location / / Volume Laterality Blood specimen 07/10/2017 4:26 AM 017 4:26 (specimen) EST AM EST Yuan Webber MD POINT OF CARE TEST ORDERABLE S Performing Organization Address City/State/ZIP Code Phon e Number [address] (ABNORMAL) POCT Glucose (07/10/2017 3:06 AM EST) P athologist Signature POC Glucose 204 (H) 65 - 199 [facility] mg/dL [facility] LABORATORY Comment: Supplemental ranges: <140 mg/dL before meals <180 mg/dL all other times of the day Specimen Anatomical Collection Method Collection Time Receive d Time (Source) Location / / Volume Laterality Blood specimen 07/10/2017 3:06 AM 017 3:06 (specimen) EST AM EST Yuan Webber MD POINT OF CARE TEST ORDERABLE S Performing Organization Address City/[facility]/[place] [address] (ABNORMAL) POCT Glucose (07/10/2017 2:10 AM EST) P athologist Signature POC Glucose 203 (H) 65 - [address] [facility] mg/dL [facility] LABORATORY Comment: Supplemental ranges: <140 mg/dL before meals <180 mg/dL all other times of the day Specimen Anatomical Collection Method Collection Time Receive d Time (Source) Location / / Volume Laterality Blood specimen 07/10/2017 2:10 AM 017 2:10 (specimen) EST AM EST Yuan Webber MD POINT OF CARE TEST ORDERABLE S Performing Organization Address City/State/ZIP Code Phon e Number [address] POCT Glucose (07/10/2017 1:09 AM EST) P athologist Signature POC Glucose 196 65 - [address] [facility] mg/dL [facility] LABORATORY Comment: Supplemental ranges: <140 mg/dL before meals <180 mg/dL all other times of the day Specimen Anatomical Collection Method Collection Time Receive d Time (Source) Location / / Volume Laterality Blood specimen 07/10/2017 1:09 AM 2 017 1:09 (specimen) EST AM EST Yuan Webber MD POINT OF CARE TEST ORDERABLE S Performing Organization Address City/State/ZIP Code Phon e Number [address] POCT Glucose (07/10/2017 12:10 AM EST) P athologist Signature POC Glucose 173 65 - 199 [place]ALINA ZHOARYAN mg/dL [facility] LABORATORY Comment: Supplemental ranges: <140 mg/dL before meals <180 mg/dL all other times of the day Specimen Anatomical Collection Method Collection Time Receive d Time (Source) Location / / Volume Laterality Blood specimen 07/10/2017 12:10 7 (specimen) AM EST 12:10 AM EST Yuan Webber MD POINT OF CARE TEST ORDERABLE S Performing Organization Address City/State/[place] [address] POCT Glucose (07/09/2017 11:01 PM EST) P athologist Signature POC Glucose 140 65 - 199 [place] RYAN mg/dL [facility] LABORATORY Comment: Supplemental ranges: <140 mg/dL before meals <180 mg/dL all other times of the day Specimen Anatomical Collection Method Collection Time Receive d Time (Source) Location / / Volume Laterality Blood specimen 07/09/2017 11:01 7 (specimen) PM EST 11:01 PM EST Yuan Webber MD POINT OF CARE TEST ORDERABLE S Performing Organization Address City/State/[place] [address] POCT Glucose (07/09/2017 10:05 PM EST) P athologist Signature POC Glucose 144 65 - [address] [facility] mg/dL [facility] LABORATORY Comment: Supplemental ranges: <140 mg/dL before meals <180 mg/dL all other times of the day Specimen Anatomical Collection Method Collection Time Receive d Time (Source) Location / / Volume Laterality Blood specimen 07/09/2017 10:05 7 (specimen) PM EST 10:05 PM EST Yuan Webber MD POINT OF CARE TEST ORDERABLE S Performing Organization Address City/State/ZIP Code Phon e Number [address] POCT Glucose (07/09/2017 9:31 PM EST) athologist Signature POC Glucose 121 65 - 199 [place]ALINA ZHAORYAN mg/dL [facility] LABORATORY Comment: Supplemental ranges: <140 mg/dL before meals <180 mg/dL all other times of the day Specimen Anatomical Collection Method Collection Time Receive d Time (Source) Location / / Volume Laterality Blood specimen 07/09/2017 9:31 PM 017 9:31 (specimen) EST PM EST Yuan Webber MD POINT OF CARE TEST ORDERABLE S Performing Organization Address City/[facility]/ZIP Code Phon e Number [address] POCT Glucose (07/09/2017 9:03 PM EST) athologist Signature POC Glucose 98 65 - 199 [place] RYAN mg/dL [facility] LABORATORY Comment: Supplemental ranges: <140 mg/dL before meals <180 mg/dL all other times of the day Specimen Anatomical Collection Method Collection Time Receive d Time (Source) Location / / Volume Laterality Blood specimen 07/09/2017 9:03 PM 017 9:03 (specimen) EST PM EST Yuan Webber MD POINT OF CARE TEST ORDERABLE S Performing Organization Address City/[facility]/ZIP Code Phon e Number [address] POCT Glucose (07/09/2017 8:09 PM EST) athologist Signature POC Glucose 117 65 - 199 [place] RYAN mg/dL [facility] LABORATORY Comment: Supplemental ranges: <140 mg/dL before meals <180 mg/dL all other times of the day Specimen Anatomical Collection Method Collection Time Receive d Time (Source) Location / / Volume Laterality Blood specimen 07/09/2017 8:09 PM 017 8:09 (specimen) EST PM EST Yuan Webber MD POINT OF CARE TEST ORDERABLE S Performing Organization Address City/State/ZIP Code Phon e Number [address] POCT Glucose (07/09/2017 5:40 PM EST) athologist Signature POC Glucose 155 65 - 199 K[place]ALINA ZHAORYAN mg/dL [facility] LABORATORY Comment: Supplemental ranges: <140 mg/dL before meals <180 mg/dL all other times of the day Specimen Anatomical Collection Method Collection Time Receive d Time (Source) Location / / Volume Laterality Blood specimen 07/09/2017 5:40 PM 017 5:40 (specimen) EST PM EST Yuan Webber MD POINT OF CARE TEST ORDERABLE S Performing Organization Address City/State/ZIP Code Phon e Number [address] POCT Glucose (07/09/2017 4:24 PM EST) athologist Signature POC Glucose 164 65 - 199 K[place]AL[place] RYAN mg/dL [facility] LABORATORY Comment: Supplemental ranges: <140 mg/dL before meals <180 mg/dL all other times of the day Specimen Anatomical Collection Method Collection Time Receive d Time (Source) Location / / Volume Laterality Blood specimen 07/09/2017 4:24 PM 017 4:24 (specimen) EST PM EST Yuan Webber MD POINT OF CARE TEST ORDERABLE S Performing Organization Address City/State/ZIP Code Phon e Number [address] POCT Glucose (07/09/2017 3:19 PM EST) athologist Signature POC Glucose 166 65 - [address] [facility] mg/dL [facility] LABORATORY Comment: Supplemental ranges: <140 mg/dL before meals <180 mg/dL all other times of the day Specimen Anatomical Collection Method Collection Time Receive d Time (Source) Location / / Volume Laterality Blood specimen 07/09/2017 3:19 PM 017 3:19 (specimen) EST PM EST Yuan Webber MD POINT OF CARE TEST ORDERABLE S Performing Organization Address City/State/[place] [address] POCT Glucose (07/09/2017 2:26 PM EST) athologist Signature POC Glucose 179 65 - 199 [place]AL[place] ZHAORYAN mg/dL [facility] LABORATORY Comment: Supplemental ranges: <140 mg/dL before meals <180 mg/dL all other times of the day Specimen Anatomical Collection Method Collection Time Receive d Time (Source) Location / / Volume Laterality Blood specimen 07/09/2017 2:26 PM 017 2:26 (specimen) EST PM EST Yuan Webber MD POINT OF CARE TEST ORDERABLE S Performing Organization Address City/[facility]/[place] [address] (ABNORMAL) POCT Glucose (07/09/2017 1:29 PM EST) athologist Signature POC Glucose 210 (H) 65 - 199 [place] RYAN mg/dL [facility] LABORATORY Comment: Supplemental ranges: <140 mg/dL before meals <180 mg/dL all other times of the day Specimen Anatomical Collection Method Collection Time Receive d Time (Source) Location / / Volume Laterality Blood specimen 07/09/2017 1:29 PM 017 1:29 (specimen) EST PM EST Yuan Webber MD POINT OF CARE TEST ORDERABLE S Performing Organization Address City/[facility]/[place] [address] POCT Glucose (07/09/2017 12:20 PM EST) athologist Signature POC Glucose 172 65 - 199 K[place]ALINA ZHAORYAN mg/dL [facility] LABORATORY Comment: Supplemental ranges: <140 mg/dL before meals <180 mg/dL all other times of the day Specimen Anatomical Collection Method Collection Time Receive d Time (Source) Location / / Volume Laterality Blood specimen 07/09/2017 12:20 7 (specimen) PM EST 12:20 PM EST Yuan Webber MD POINT OF CARE TEST ORDERABLE S Performing Organization Address City/State/ZIP Code Phon e Number [address] POCT Glucose (07/09/2017 11:24 AM EST) P athologist Signature POC Glucose 156 65 - 199 [place] mg/dL [facility] LABORATORY Comment: Supplemental ranges: <140 mg/dL before meals <180 mg/dL all other times of the day Specimen Anatomical Collection Method Collection Time Receive d Time (Source) Location / / Volume Laterality Blood specimen 07/09/2017 11:24 7 (specimen) AM EST 11:24 AM EST Yuan Webber MD POINT OF CARE TEST ORDERABLE S Performing Organization Address City/State/ZIP Code Phon e Number [address] POCT Glucose (07/09/2017 11:11 AM EST) P athologist Signature POC Glucose 172 65 - 199 [place] mg/dL [facility] LABORATORY Comment: Supplemental ranges: <140 mg/dL before meals <180 mg/dL all other times of the day Specimen Anatomical Collection Method Collection Time Receive d Time (Source) Location / / Volume Laterality Blood specimen 07/09/2017 11:11 7 (specimen) AM EST 11:11 AM EST Yuan Webber MD POINT OF CARE TEST ORDERABLE S Performing Organization Address City/State/[place] [address] [facility] LAB[address] Drive POCT Glucose (07/09/2017 10:08 AM EST) P athologist Signature POC Glucose 176 65 - 199 K[place]ALINA ZHAORYAN mg/dL [facility] LABORATORY Comment: Supplemental ranges: <140 mg/dL [...] e Number [facility] [place] [address] POCT Glucose (07/09/2017 8:02 AM EST) P athologist Signature POC Glucose 178 65 - 199 [facility] mg/dL [facility] LABORATORY Comment: Supplemental ranges: <140 mg/dL before meals <180 mg/dL all other times of the day Specimen Anatomical Collection Method Collection Time Receive d Time (Source) Location / / Volume Laterality Blood specimen 07/09/2017 8:02 AM 017 8:02 (specimen) EST AM EST Yuan Webber MD POINT OF CARE TEST ORDERABLE S Performing Organization Address City/State/[place] [address] (ABNORMAL) BLOOD GAS 2 ARTERIAL (07/09/2017 5:37 AM EST) Analysis Performed At Patho logist Time Signature pH Art 7.36 7.35 - [facility] 7.45 [facility] LABORATORY pCO2 Art 38 35 - 45 [facility] LABORATORY pO2 Art 79 (L) 85 - 104 [facility] LABORATORY HCO3 Art 20.9 20.0 - [facility] 26.0 [facility] mmol/L [facility] LABORATORY BE Art -4.6 (L) -3.0 - 3.0 [facility] mmol/L [facility] LABORATORY Hgb Blood Gas 10.5 (L) 13.7 - [facility] 16.5 gm/dL [facility] LABORATORY O2HB Art 93.8 (L) 94.0 - [facility] 97.0 % [facility] LABORATORY COHB Art 0.3 % [facility] [...] Blood 113 (H) 98 - 107 mmol/L [facility] LABORATORY Gluc Whole Bld 175 65 - 199 mg/dL [facility] LABORATORY Comment: Diabetes: >=200 mg/dL plus symp toms. Lactate WB 1.0 0.5 - 2.2 mmol/L [facility] LABORATORY FIO2 Art 40 % [facility] LABORATORY PF Ratio Art 198 [facility] LABORATORY Specimen Anatomical Collection Method Collection Time Receive d Time (Source) Location / / Volume Laterality Blood specimen 07/09/2017 5:37 AM 017 5:37 (specimen) EST AM EST Yuan Webber MD CHEMISTRY ORDERABLES Performing Organization Address City/[facility]/[place] [address] POCT Glucose (07/09/2017 3:27 AM EST) P athologist Signature POC Glucose 192 65 - 199 [facility] mg/dL [facility] LABORATORY Comment: Supplemental ranges: <140 mg/dL before meals <180 mg/dL all other times of the day Specimen Anatomical Collection Method Collection Time Receive d Time (Source) Location / / Volume Laterality Blood specimen 07/09/2017 3:27 AM 017 3:27 (specimen) EST AM EST Yuan Webber MD POINT OF CARE TEST ORDERABLE S Performing Organization Address City/[facility]/[place] [address] (ABNORMAL) Basic Metabolic Panel (non-fasting) (07/09/2017 2:30 AM EST) P athologist Signature Glucose Lvl 179 65 - 199 [facility] mg/dL [facility] [...] or in patients with acute kidney failure. [email or web address] Specimen Anatomical Collection Method Collection Time Receive d Time (Source) Location / / Volume Laterality Blood specimen Venous Draw / 07/09/2017 2:30 AM 2016 2:42 (specimen) Unknown EST AM EST Resulting Agency Comment Spec In Lab Yuan Webber MD CHEMISTRY ORDERABLES Performing Organization Address City/State/[place] [address] (ABNORMAL) Potassium (07/09/2017 2:30 AM EST) P athologist Signature Potassium 5.1 (H) 3.5 - 5.0 [facility] mmol/L [facility] LABORATORY Comment: Please note: ??Patients with [...] City/State/[place] [address] (ABNORMAL) Hemogram (07/09/2017 2:30 AM EST) Analysis Performed At Patho logist Time Signature WBC 12.5 (H) 4.0 - 9.5 [facility] x10(3)/[facility] LABORATORY RBC 3.38 (L) 4.58 - [facility] 5.54 [facility] x10(6)/[facility] LABORATORY Hemoglobin 10.1 (L) 13.7 - [facility] 16.5 gm/dL [facility] LABORATORY Hematocrit 30.3 (L) 40.5 - [facility] 48.5 % [facility] LABORATORY MCV 89.6 82.9 - [facility] 93.1 [facility] LABORATORY MCH 29.9 27.5 - [place] RYAN 32.1 pg [facility] LABORATORY MCHC 33.3 32.0 - [facility] 35.7 gm/dL [facility] LABORATORY Platelets 127 (L) 145 - 357 [facility] x10(3)/[facility] LABORATORY RDWSD 49.3 (H) 36.0 - [place] RYAN 45.0 [facility] LABORATORY RDWCV 15.2 (H) 11.4 - [facility] 13.8 % [facility] LABORATORY MPV 9.9 7.6 - 12.9 [facility] LABORATORY nRBC % Auto 0.0 % [facility] LABORATORY nRBC Abs Auto 0.000 0.000 - [place] RYAN 0.000 [facility] x10(3)/[facility] LABORATORY Specimen Anatomical Collection Method Collection Time Receive d Time (Source) Location / / Volume Laterality Blood specimen 07/09/2017 2:30 AM 017 2:41 (specimen) EST AM EST Resulting Agency Comment Spec In Lab Yuan Webber MD HEMATOLOGY ORDERABLES Performing Organization Address City/[facility]/ZIP Code Phon e Number [address] POCT Glucose (07/09/2017 2:10 AM EST) P athologist Signature POC Glucose 169 65 - 199 [place] ZHAORYAN mg/dL [facility] LABORATORY Comment: Supplemental ranges: <140 mg/dL before meals <180 mg/dL all other times of the day Specimen Anatomical Collection Method Collection Time Receive d Time (Source) Location / / Volume Laterality Blood specimen 07/09/2017 2:10 AM 017 2:10 (specimen) EST AM EST Yuan Webber MD POINT OF CARE TEST ORDERABLE S Performing Organization Address City/[facility]/[place] [address] POCT Glucose (07/09/2017 1:01 AM EST) P athologist Signature POC Glucose 173 65 - 199 [place] ZHAORYAN mg/dL [facility] LABORATORY Comment: Supplemental ranges: <140 mg/dL before meals <180 mg/dL all other times of the day Specimen Anatomical Collection Method Collection Time Receive d Time (Source) Location / / Volume Laterality Blood specimen 07/09/2017 1:01 AM 017 1:01 (specimen) EST AM EST Yuan Webber MD POINT OF CARE TEST ORDERABLE S Performing Organization Address City/[facility]/ZIP Code Phon e Number [address] Blood culture (07/09/2017 12:40 AM EST) [facility] Method Time Signature Blood Culture No growth [place]INA VILLAREALCOCK at 5 days. [facility] LABORATORY Specimen Anatomical Collection Method Collection Time Receive d Time (Source) Location / / Volume Laterality Blood specimen STRUCTURE OF RIGHT 07/09/2017 12:40 3:58 (specimen) UPPER LIMB / AM EST AM EST Unknown Resulting Agency Comment Spec In Lab Yuan Webber MD MICROBIOLOGY - BLOOD ORDERAB LES Performing Organization Address City/State/[place] [address] Blood culture (07/09/2017 12:30 AM EST) [facility] YeahMobi Method Time Signature Blood Culture No growth KATALINA DAVIS at 5 days. [facility] LABORATORY Specimen Anatomical Collection Method Collection Time Receive d Time (Source) Location / / Volume Laterality Blood specimen STRUCTURE OF LEFT 07/09/2017 12:30 1211/2016 3:59 (specimen) UPPER LIMB / AM EST AM EST Unknown Resulting Agency Comment Spec In Lab Yuan Webber MD MICROBIOLOGY - BLOOD ORDERAB LES Performing Organization Address City/[facility]/[place] [address] (ABNORMAL) Urinalysis Microscopic Exam (07/09/2017 12:05 AM EST) Analysis Performed At Patho logist Time Signature RBC UA 32 (H) 0 - 3 /HPF [facility] LABORATORY WBC UA 5 (H) 0 - 3 /HPF [facility] LABORATORY Squam Epith UA <1 <=4 /HPF [facility] LABORATORY Hyaline Cast 17 (H) 0 - 2 /LPF [facility] LABORATORY Gran Cast UA 1 (H) <=0 /LPF [facility] LABORATORY Uric Ac Bianca Rare (A) None /HPF [facility] LABORATORY Specimen (Source) Anatomical Collection Method Collection Time Re ceived Time Location / / Volume Laterality Urine specimen 07/09/2017 12:05 07/09/ 7 obtained via AM EST 12:39 AM EST indwelling urinary catheter (specimen) Resulting Agency Comment Spec In Lab Yuan Webber MD URINE ORDERABLES Performing Organization Address City/State/[place] [address] (ABNORMAL) Urinalysis with reflex Culture (07/09/2017 12:05 AM EST) [facility] YeahMobi Method Time Signature Glucose UA Negative Negative KATALINA DAVIS mg/dL [facility] LABORATORY Protein UA 30 (A) Negative [facility] LAB[facility]ORY Bilirubin UA Negative Negative [facility] LAB[facility]ORY Comment: Clinical correlation required for [...] [facility] Nitrite UA Negative Negative [facility] LABORATORY Leukocytes UA Negative Negative [facility] LABORATORY Appearance UA Hazy (A) Clear [facility] LABORATORY Spec [place] UA 1.025 1.002 - 1.030 [facility] LABORATORY Color UA Yellow Yellow [facility] LABORATORY Culture Reflexed No [facility] LABORATORY Specimen (Source) Anatomical Collection Method Collection Time Re ceived Time Location / / Volume Laterality Urine specimen 07/09/2017 12:05 7 obtained via AM EST 12:39 AM EST indwelling urinary catheter (specimen) Resulting Agency Comment Spec In Lab Yuan Webber MD URINE ORDERABLES Performing Organization Address City/[facility]/[place] [address] POCT Glucose (07/08/2017 11:01 PM EST) P athologist Signature POC Glucose 191 65 - 199 [facility] Comment: Supplemental ranges: <140 mg/dL [...] e [place] [facility] [place] [address] POCT Glucose (07/08/2017 10:04 PM EST) athologist Signature POC Glucose 198 65 - 199 [facility]dL [facility] Comment: Supplemental ranges: <140 mg/dL before meals <180 mg/dL all other times of the day Specimen Anatomical Collection Method Collection Time Receive d Time (Source) Location / / Volume Laterality Blood specimen 07/08/2017 10:04 7 (specimen) PM EST 10:04 PM EST Yuan Webber MD POINT OF CARE TEST ORDERABLE S Performing Organization Address City/State/ZIP Code Phon e Number [address] Prepare Albumin 5% in 250 mL (07/08/2017 8:49 PM EST) athologist Signature Dispensed? Yes [facility] LABORATORY Specimen Anatomical Collection Method Collection Time Receive d Time (Source) Location / / Volume Laterality Blood specimen No Charge / 07/08/2017 8:49 PM 017 8:51 (specimen) Unknown EST PM EST Resulting Agency Comment Spec In Lab [facility] ORDERABLES Performing Organization Address City/State/ZIP Code Phon e Number [address] POCT Glucose (07/08/2017 8:28 PM EST) athologist Signature POC Glucose 195 65 - 199 [place] RYAN mg/dL [facility] Comment: Supplemental ranges: <140 mg/dL before meals <180 mg/dL all other times of the day Specimen Anatomical Collection Method Collection Time Receive d Time (Source) Location / / Volume Laterality Blood specimen 07/08/2017 8:28 PM 017 8:28 (specimen) EST PM EST Yuan Webber MD POINT OF CARE TEST ORDERABLE S Performing Organization Address City/State/[place] [address] (ABNORMAL) POCT Glucose (07/08/2017 7:13 PM EST) P athologist Signature POC Glucose 220 (H) 65 - 199 [facility] mg/dL [facility] Comment: Supplemental ranges: <140 mg/dL before meals <180 mg/dL all other times of the day Specimen Anatomical Collection Method Collection Time Receive d Time (Source) Location / / Volume Laterality Blood specimen 07/08/2017 7:13 PM 017 7:13 (specimen) EST PM EST Yuan Webber MD POINT OF CARE TEST ORDERABLE S Performing Organization Address City/State/ZIP Code Phon e Number [address] POCT Glucose (07/08/2017 5:04 PM EST) athologist Signature POC Glucose 147 65 - 199 [facility] mg/dL [facility] Comment: Supplemental ranges: <140 mg/dL before meals <180 mg/dL all other times of the day Specimen Anatomical Collection Method Collection Time Receive d Time (Source) Location / / Volume Laterality Blood specimen 07/08/2017 5:04 PM 017 5:04 (specimen) EST PM EST Yuan Webber MD POINT OF CARE TEST ORDERABLE S Performing Organization Address City/State/[place] [address] (ABNORMAL) BLOOD GAS 2 ARTERIAL (07/08/2017 4:13 PM EST) Analysis Performed At Patho logist Time Signature pH Art 7.38 7.35 - [facility] 7.45 [facility] LABORATORY pCO2 Art 36 35 - 45 [facility] LABORATORY pO2 Art 91 85 - 104 [facility] LABORATORY HCO3 Art 20.9 20.0 - [facility] 26.0 [facility] mmol/L [facility] LABORATORY BE Art -4.2 (L) -3.0 - 3.0 [facility] mmol/L [facility] LABORATORY Hgb Blood Gas 11.7 (L) 13.7 - [facility] 16.5 gm/dL [facility] LABORATORY O2HB Art 95.1 94.0 - [facility] 97.0 % [facility] LABORATORY COHB Art 0.6 % [facility] [...] Blood 110 (H) 98 - 107 mmol/L [facility] LABORATORY Gluc Whole Bld 155 65 - 199 mg/dL [facility] LABORATORY Comment: Diabetes: >=200 mg/dL plus symp toms. Lactate WB 1.4 0.5 - 2.2 mmol/L [facility] LABORATORY FIO2 Art 40 % [facility] LABORATORY PF Ratio Art 228 [facility] LABORATORY Specimen Anatomical Collection Method Collection Time Receive d Time (Source) Location / / Volume Laterality Blood specimen 07/08/2017 4:13 PM 017 4:13 (specimen) EST PM EST Yuan Webber MD CHEMISTRY ORDERABLES Performing Organization Address City/State/[place] [address] POCT Glucose (07/08/2017 4:01 PM EST) P athologist Signature POC Glucose 148 65 - 199 [facility] mg/dL [facility] LABOR[facility] Comment: Supplemental ranges: <140 mg/dL before meals <180 mg/dL all other times of the day Specimen Anatomical Collection Method Collection Time Receive d Time (Source) Location / / Volume Laterality Blood specimen 07/08/2017 4:01 PM 017 4:01 (specimen) EST PM EST Yuan Webber MD POINT OF CARE TEST ORDERABLE S Performing Organization Address City/State/ZIP Code Phon e Number [address] POCT Glucose (07/08/2017 3:21 PM EST) athologist Signature POC Glucose 118 65 - 199 [place] ZHAORYAN mg/dL [facility] LABORATORY Comment: Supplemental ranges: <140 mg/dL before meals <180 mg/dL all other times of the day Specimen Anatomical Collection Method Collection Time Receive d Time (Source) Location / / Volume Laterality Blood specimen 07/08/2017 3:21 PM 017 3:21 (specimen) EST PM EST Yuan Webber MD POINT OF CARE TEST ORDERABLE S Performing Organization Address City/State/ZIP Code Phon e Number [address] POCT Glucose (07/08/2017 2:01 PM EST) athologist Signature POC Glucose 129 65 - 199 K[place]AL[place] ZHAORYAN mg/dL [facility] Comment: Supplemental ranges: <140 mg/dL before meals <180 mg/dL all other times of the day Specimen Anatomical Collection Method Collection Time Receive d Time (Source) Location / / Volume Laterality Blood specimen 07/08/2017 2:01 PM 017 2:01 (specimen) EST PM EST Yuan Webber MD POINT OF CARE TEST ORDERABLE S Performing Organization Address City/State/[place] [address] POCT Glucose (07/08/2017 11:53 AM EST) athologist Signature POC Glucose 156 65 - 199 [place] ZHAORYAN mg/dL [facility] Comment: Supplemental ranges: <140 mg/dL before meals <180 mg/dL all other times of the day Specimen Anatomical Collection Method Collection Time Receive d Time (Source) Location / / Volume Laterality Blood specimen 07/08/2017 11:53 7 (specimen) AM EST 11:53 AM EST Yuan Webber MD POINT OF CARE TEST ORDERABLE S Performing Organization Address City/State/ZIP Code Phon e Number [address] POCT Glucose (07/08/2017 11:04 AM EST) athologist Signature POC Glucose 181 65 - 199 [facility]/dL [facility] Comment: Supplemental ranges: <140 mg/dL before meals <180 mg/dL all other times of the day Specimen Anatomical Collection Method Collection Time Receive d Time (Source) Location / / Volume Laterality Blood specimen 07/08/2017 11:04 7 (specimen) AM EST 11:04 AM EST Yuan Webber MD POINT OF CARE TEST ORDERABLE S Performing Organization Address City/[facility]/[place] [address] (ABNORMAL) POCT Glucose (07/08/2017 9:24 AM EST) athologist Signature POC Glucose 203 (H) 65 - 199 [facility] mg/dL [facility] LAB[facility] Comment: Supplemental ranges: <140 mg/dL before meals <180 mg/dL all other times of the day Specimen Anatomical Collection Method Collection Time Receive d Time (Source) Location / / Volume Laterality Blood specimen 07/08/2017 9:24 AM 017 9:24 (specimen) EST AM EST Yuan Webber MD POINT OF CARE TEST ORDERABLE S Performing Organization Address City/State/[place] [address] APTT (07/08/2017 8:40 AM [...] City/[facility]/[place] [address] (ABNORMAL) Prothrombin Time (07/08/2017 [...] City/[facility]/[place] [address] (ABNORMAL) POCT Glucose (07/08/2017 7:38 AM EST) P athologist Signature POC Glucose 232 (H) 65 - 199 [facility] mg/dL [facility] Comment: Supplemental ranges: <140 mg/dL before meals <180 mg/dL all other times of the day Specimen Anatomical Collection Method Collection Time Receive d Time (Source) Location / / Volume Laterality Blood specimen 07/08/2017 7:38 AM 017 7:38 (specimen) EST AM EST Yuan Webber MD POINT OF CARE TEST ORDERABLE S Performing Organization Address City/[facility]/[place] [address] (ABNORMAL) POCT Glucose (07/08/2017 7:07 AM EST) athologist Signature POC Glucose 234 (H) 65 - 199 [facility] mg/dL [facility] Comment: Supplemental ranges: <140 mg/dL before meals <180 mg/dL all other times of the day Specimen Anatomical Collection Method Collection Time Receive d Time (Source) Location / / Volume Laterality Blood specimen 07/08/2017 7:07 AM 017 7:07 (specimen) EST AM EST Yuan Webber MD POINT OF CARE TEST ORDERABLE S Performing Organization Address City/State/[place] [address] (ABNORMAL) POCT Glucose (07/08/2017 6:04 AM EST) athologist Signature POC Glucose 225 (H) 65 - 199 [facility] mg/dL [facility] Comment: Supplemental ranges: <140 mg/dL before meals <180 mg/dL all other times of the day Specimen Anatomical Collection Method Collection Time Receive d Time (Source) Location / / Volume Laterality Blood specimen 07/08/2017 6:04 AM 017 6:04 (specimen) EST AM EST Yuan Webber MD POINT OF CARE TEST ORDERABLE S Performing Organization Address City/State/[place] [address] (ABNORMAL) POCT Glucose (07/08/2017 5:31 AM EST) athologist Signature POC Glucose 216 (H) 65 - 199 [facility] mg/dL [facility] Comment: Supplemental ranges: <140 mg/dL before meals <180 mg/dL all other times of the day Specimen Anatomical Collection Method Collection Time Receive d Time (Source) Location / / Volume Laterality Blood specimen 07/08/2017 5:31 AM 017 5:31 (specimen) EST AM EST Yuan Webber MD POINT OF CARE TEST ORDERABLE S Performing Organization Address City/State/[place] [address] (ABNORMAL) POCT Glucose (07/08/2017 4:52 AM EST) P athologist Signature POC Glucose 257 (H) 65 - 199 [facility] mg/dL [facility] LABOR[facility]ORY Comment: Supplemental ranges: <140 mg/dL before meals <180 mg/dL all other times of the day Specimen Anatomical Collection Method Collection Time Receive d Time (Source) Location / / Volume Laterality Blood specimen 07/08/2017 4:52 AM 017 4:52 (specimen) EST AM EST Daphne Shahid MD POINT OF CARE TEST ORDERABLE S Performing Organization Address City/State/[place] [address] (ABNORMAL) BLOOD GAS 2 ARTERIAL (07/08/2017 4:04 AM EST) Analysis Performed At Patho logist Time Signature pH Art 7.30 (L) 7.35 - [facility] 7.45 [facility] LABORATORY pCO2 Art 41 35 - 45 [facility] LABORATORY pO2 Art 83 (L) 85 - 104 [facility] LABORATORY HCO3 Art 19.6 (L) 20.0 - [facility] 26.0 [facility] mmol/[facility] LABORATORY BE Art -6.8 (L) -3.0 - 3.0 [facility] mmol/L [facility] LABORATORY Hgb Blood Gas 12.2 (L) 13.7 - [facility] 16.5 gm/dL [facility] LABORATORY O2HB Art 93.5 (L) 94.0 - [facility] 97.0 % [facility] LABORATORY COHB Art 0.4 % [facility] [...] Whole Blood 107 98 - 107 mmol/L [facility] LABORATORY Gluc Whole Bld 274 (H) 65 - 199 mg/dL [facility] LABORATORY Comment: Diabetes: >=200 mg/dL plus symp toms. Lactate WB 4.4 (Critical) 0.5 - 2.2 mmol/L [facility] LABORATORY Comment: Noted by instrumentation supervisor. FIO2 Art 40 % [facility] LABORATORY PF Ratio Art 208 [facility] LABORATORY Specimen Anatomical Collection Method Collection Time Receive d Time (Source) Location / / Volume Laterality Blood specimen 07/08/2017 4:04 AM 017 4:04 (specimen) EST AM EST Daphne Shahid MD CHEMISTRY ORDERABLES Performing Organization Address City/[facility]/ZIP Code Phon e Number [address] Scan, Peripheral Blood (07/08/2017 [...] Address City/State/ZIP Code Phon e Number [address] (ABNORMAL) Differential, Automated (07/08/2017 4:00 AM EST) Patholo gist Method Time Signature Neutrophils % 85.4 % [facility] LABORATORY Neutr Abs (ANC) 16.07 (H) 1.70 - [facility] 6.10 [facility] x10(3)/[facility] L LABORATORY Lymphocytes % 3.5 % [facility] LABORATORY Lymphocytes Abs 0.6 (L) 0.9 - 3.2 [facility] x10(3)/[facility] LABORATORY Monocytes % 10.4 % [facility] LABORATORY Monocyte Abs 2.0 (H) 0.3 - 0.9 [facility] x10(3)/[facility] LABORATORY Eosinophils % 0.0 % [facility] LABORATORY Eosinophils Abs 0.0 0.0 - 0.4 [facility] x10(3)/[facility] LABORATORY Basophils % 0.1 % [facility] LABORATORY Basophils Abs 0.0 0.0 - 0.1 [facility] x10(3)/[facility] LABORATORY Immature Gran % 0.60 % [...] Gran Abs 0.12 (H) 0.00 - 0.04 x10(3)/[facility] LABORATORY Specimen Anatomical Collection Method Collection Time Receive d Time (Source) Location / / Volume Laterality Blood specimen 07/08/2017 4:00 AM 017 4:09 (specimen) EST AM EST Resulting Agency Comment Spec In Lab Yuan Webber MD HEMATOLOGY ORDERABLES Performing Organization Address City/State/[place] [address] (ABNORMAL) Hemogram (07/08/2017 4:00 AM EST) Analysis Performed At Patho logist Time Signature WBC 18.8 (H) 4.0 - 9.5 [facility] x10(3)/[facility] LABORATORY RBC 4.00 (L) 4.58 - [facility] 5.54 [facility] x10(6)/[facility] LABORATORY Hemoglobin 11.9 (L) 13.7 - [facility] 16.5 gm/dL [facility] LABORATORY Hematocrit 35.9 (L) 40.5 - [place] DAVIS 48.5 % [facility] LABORATORY MCV 89.8 82.9 - [facility] 93.1 [facility] LABORATORY MCH 29.8 27.5 - [place] OLIV[place] 32.1 pg [facility] LABORATORY MCHC 33.1 32.0 - [place] DAVIS 35.7 gm/dL [facility] LABORATORY Platelets 232 145 - 357 [facility] x10(3)/[facility] LABORATORY RDWSD 47.6 (H) 36.0 - [place] DAVIS 45.0 [facility] LABORATORY RDWCV 14.5 (H) 11.4 - [facility] 13.8 % [facility] LABORATORY MPV 9.5 7.6 - 12.9 [facility] LABORATORY nRBC % Auto 0.0 % [facility] LABORATORY nRBC Abs Auto 0.000 0.000 - [facility] 0.000 [facility] x10(3)/[facility] LABORATORY Specimen Anatomical Collection Method Collection Time Receive d Time (Source) Location / / Volume Laterality Blood specimen 07/08/2017 4:00 AM 017 4:09 (specimen) EST AM EST Resulting Agency Comment Spec In Lab Yuna Webber MD HEMATOLOGY ORDERABLES Performing Organization Address City/State/ZIP Code Phon e Number [place] [id number] (ABNORMAL) Electrolytes panel (07/08/2017 4:00 AM EST) P athologist Signature Sodium 139 135 - 145 [facility] mmol/L [facility] LABORATORY Potassium 4.7 3.5 - 5.0 [facility] mmol/L [facility] LABORATORY Comment: result rechecked-JLK Please note: ??Patients with WBC >100,00 0 may have falsely elevated Potassium levels. ??For accurate Potassium quantif ication in these patients send serum separator tube (gold top) for subsequent determinations. ??Contact the Clinical Chemistry Laboratory if there are any qu estions. Chloride 104 98 - 107 mmol/L [facility] LABORATORY CO2 21 (L) 22 - 31 mmol/L [facility] Anion Gap 14 5 - 15 mmol/L [place] RYAN [facility] LABORATORY Specimen Anatomical Collection Method Collection Time Receive d Time (Source) Location / / Volume Laterality Blood specimen 07/08/2017 4:00 AM 017 4:10 (specimen) EST AM EST Resulting Agency Comment Spec In Lab Yuan Webber MD CHEMISTRY ORDERABLES Performing Organization Address City/State/[place] [address] (ABNORMAL) Cardiac Enzymes (LEB/CGP) (07/08/2017 4:00 AM EST) P athologist Signature Troponin-T 1.88 (H) 0.00 - [facility] 0.00 ng/mL [facility] LABORATORY Comment: The 99th percentile for [...] additional sample may be indicated. Reference: Third [place] Definition of Myocardial Infarction. Journal of the [employer] 2012;60:1581-98 CK, Total 413 [...] Address City/State/ZIP Code Phon e Number [address] (ABNORMAL) Glucose, fasting (07/08/2017 4:00 AM EST) P athologist Signature Glucose 287 (H) 65 - 99 [facility] Fasting mg/dL [facility] LABORATORY Comment: ?Fasting* Glucose Interpretive C [...] City/[facility]/[place] [address] (ABNORMAL) Creatinine (07/08/2017 4:00 AM EST) Analysis Performed At Patho logist Time Signature Creatinine 1.55 (H) 0.80 - [place] 1.50 mg/dL [facility] LABORATORY Estimated GFR 44 (L) >=60 [facility] LABORATORY Comment: The reported eGFR should be multiplied b y 1.2 for patients. The MDRD is not an appropriate measure o f renal function for patients with body mass extremes or in patients with acute kidney failure. [email or web address] [email or web address] Specimen Anatomical Collection Method Collection Time Receive d Time (Source) Location / / Volume Laterality Blood specimen 07/08/2017 4:00 AM 017 4:09 (specimen) EST AM EST Resulting Agency Comment Spec In Lab Yuan Webber MD CHEMISTRY ORDERABLES Performing Organization Address City/[facility]/ZIP Code Phon e Number [address] BUN (07/08/2017 4:00 AM EST) P athologist Signature BUN 16 10 - 20 [place] RYAN mg/dL [facility] LABORATORY Specimen Anatomical Collection Method Collection Time Receive d Time (Source) Location / / Volume Laterality Blood specimen 07/08/2017 4:00 AM 017 4:09 (specimen) EST AM EST Resulting Agency Comment Spec In Lab Yuan Webber MD CHEMISTRY ORDERABLES Performing Organization Address City/[facility]/[place] [address] (ABNORMAL) POCT Glucose (07/08/2017 3:00 AM EST) athologist Signature POC Glucose 273 (H) 65 - 199 [facility] mg/dL [facility] LABOR[facility]ORY Comment: Supplemental ranges: <140 mg/dL before meals <180 mg/dL all other times of the day Specimen Anatomical Collection Method Collection Time Receive d Time (Source) Location / / Volume Laterality Blood specimen 07/08/2017 3:00 AM 017 3:00 (specimen) EST AM EST Daphne Shahid MD POINT OF CARE TEST ORDERABLE S Performing Organization Address City/[facility]/ZIP Code Phon e Number [address] (ABNORMAL) POCT Glucose (07/08/2017 1:57 AM EST) P athologist Signature POC Glucose 288 (H) 65 - 199 [facility] mg/dL [facility] LAB[facility]ORY Comment: Supplemental ranges: <140 mg/dL before meals <180 mg/dL all other times of the day Specimen Anatomical Collection Method Collection Time Receive d Time (Source) Location / / Volume Laterality Blood specimen 07/08/2017 1:57 AM 017 1:57 (specimen) EST AM EST Daphne Shahid MD POINT OF CARE TEST ORDERABLE S Performing Organization Address City/[facility]/[place] [address] (ABNORMAL) POCT Glucose (07/08/2017 1:01 AM EST) athologist Signature POC Glucose 315 (H) 65 - 199 [facility] mg/dL [facility] LABORATORY Comment: Supplemental ranges: <140 mg/dL before meals <180 mg/dL all other times of the day Specimen Anatomical Collection Method Collection Time Receive d Time (Source) Location / / Volume Laterality Blood specimen 07/08/2017 1:01 AM 017 1:01 (specimen) EST AM EST Daphne Shahid MD POINT OF CARE TEST ORDERABLE S Performing Organization Address City/[facility]/[place] [address] (ABNORMAL) BLOOD GAS 2 ARTERIAL (07/08/2017 12:09 AM EST) athologist Signature pH Art 7.26 7.35 - [facility] (Critical) 7.45 [facility] LABORATORY Comment: Noted by instrumentation supervisor. pCO2 Art 41 35 - 45 [...] CARE [facility]OSPITAL LABORATORY COHB Art 0.2 % [facility] [...] Blood 109 (H) 98 - 107 mmol/L [facility] LABORATORY Gluc Whole Bld 315 (H) 65 - 199 mg/dL [facility] LABORATORY Comment: Diabetes: >=200 mg/dL plus symp toms. Lactate WB 7.6 (Critical) 0.5 - 2.2 mmol/L [facility] LABORATORY Comment: Noted by instrumentation supervisor. FIO2 Art 40 % [facility] LABORATORY PF Ratio Art 240 [facility] LABORATORY Specimen Anatomical Collection Method Collection Time Receive d Time (Source) Location / / Volume Laterality Blood specimen Arterial Draw / 07/08/2017 12:09 2016 5:31 (specimen) Unknown AM EST AM EST Resulting Agency Comment Spec In Lab Samy Maldonado MD CHEMISTRY ORDERABLES Performing Organization Address City/State/[place] [address] (ABNORMAL) POCT Glucose (07/07/2017 10:56 PM EST) P athologist Signature POC Glucose 292 (H) 65 - 199 [facility] mg/dL [facility] LAB[facility] Comment: Supplemental ranges: <140 mg/dL before meals <180 mg/dL all other times of the day Specimen Anatomical Collection Method Collection Time Receive d Time (Source) Location / / Volume Laterality Blood specimen 07/07/2017 10:56 7 (specimen) PM EST 10:56 PM EST Daphne T Kono MD POINT OF CARE TEST ORDERABLE S Performing Organization Address City/State/[place] [address] (ABNORMAL) BLOOD GAS 2 ARTERIAL (07/07/2017 10:04 PM EST) athologist Signature pH Art 7.22 7.35 - [facility] (Critical) 7.45 [facility] LABOR[facility]ORY Comment: Noted by instrumentation supervisor. pCO2 Art 42 35 - 45 [...] CARE HOSPITAL LABORATORY COHB Art 0.7 % [facility] LABORATORY Comment: Nonsmokers: 0.5-1.5% COHB Smokers: Variable, but usually less than 10% Toxic: 20-30% COHB Lethal: Greater than 60% COHB METHB Art 0.7 <=1.5 % [facility] Na Whole Blood 140 135 - 145 mmol/L [facility] K Whole Blood 3.3 (L) 3.5 - 5.0 mmol/L [place] Whole Blood 107 98 - 107 mmol/L [facility] Gluc Whole Bld 304 (H) 65 - 199 mg/dL [facility] Comment: Diabetes: >=200 mg/dL plus symp toms. Lactate WB 8.2 (Critical) 0.5 - 2.2 mmol/L [facility] Comment: Noted by instrumentation supervisor. FIO2 Art 40 % [facility] PF Ratio Art 235 [facility] Specimen Anatomical Collection Method Collection Time Receive d Time (Source) Location / / Volume Laterality Blood specimen 07/07/2017 10:04 7 (specimen) PM EST 10:04 PM EST Daphne Shahid MD CHEMISTRY ORDERABLES Performing Organization Address City/[facility]/ZIP Code Phon e Number [address] (ABNORMAL) Hemoglobin (07/07/2017 10:00 PM EST) P athologist Signature Hemoglobin 12.8 (L) 13.7 - [facility] 16.5 gm/dL [facility] Specimen Anatomical Collection Method Collection Time Receive d Time (Source) Location / / Volume Laterality Blood specimen 07/07/2017 10:00 7 (specimen) PM EST 10:13 PM EST Resulting Agency Comment Spec In Lab Yuan Webber MD HEMATOLOGY ORDERABLES Performing Organization Address City/[facility]/[place] [address] (ABNORMAL) Potassium (07/07/2017 10:00 PM EST) P athologist Signature Potassium 3.4 (L) 3.5 - 5.0 [facility] mmol/L [facility] Comment: Please note: ??Patients with [...] Organization Address City/State/[place] [address] (ABNORMAL) POCT Glucose (07/07/2017 8:49 PM EST) P athologist Signature POC Glucose 241 (H) 65 - 199 [facility] mg/dL [facility] Comment: Supplemental ranges: <140 mg/dL before meals <180 mg/dL all other times of the day Specimen Anatomical Collection Method Collection Time Receive d Time (Source) Location / / Volume Laterality Blood specimen 07/07/2017 8:49 PM 017 8:49 (specimen) EST PM EST Daphne Shahid MD POINT OF CARE TEST ORDERABLE S Performing Organization Address City/[facility]/[place] [address] Prepare Albumin 5% in 250 mL (07/07/2017 8:03 PM EST) athologist Signature Dispensed? Yes [facility] Specimen Anatomical Collection Method Collection Time Receive d Time (Source) Location / / Volume Laterality Blood specimen No Charge / 07/07/2017 8:03 PM 017 8:04 (specimen) Unknown EST PM EST Resulting Agency Comment Spec In Lab Michael BROWN BLOOD BANK ORDERABLES Performing Organization Address City/[facility]/[place] [address] EKG 12 Lead (07/07/2017 7:17 PM EST) Component Value Ref Range Test Analysis Performed Pathologis t Method Time At Signature Ventricular rate 75 BPM MUSE SYSTEM Atrial Rate 75 BPM MUSE SYSTEM P-R Interval 168 ms MUSE SYSTEM QRS Duration 104 ms MUSE SYSTEM Q-T Interval 462 ms MUSE SYSTEM QTC Calculated 515 ms MUSE SYSTEM (Bezet) Calculated P Dumont 52 degrees MUSE SYSTEM Calculated R Dumont -40 degrees MUSE SYSTEM Calculated T Dumont 39 degrees MUSE SYSTEM INTERPRETATION Normal sinus [...] - [facility] (Critical) 7.45 [facility] Comment: Noted by instrumentation supervisor. pCO2 Art 50 (H) 35 - [...] CARE [facility]ITAL LABORATORY COHB Art 0.5 % [facility] Comment: Noted by instrumentation supervisor. Please note: Patients with WBC >100,000 may have falsely elevated Potassium levels. Contact the Clinical Chemistry L aboratory if there are any questions. ICa Whole Blood 1.07 (L) 1.15 - 1.33 mmol/L [facility] Comment: Note: ??Total bilirubin higher than 20 m g/dL may lead to falsely low ionized calcium. CL Whole Blood 107 98 - 107 mmol/L [facility] Gluc Whole Bld 270 (H) 65 - 199 mg/dL [facility] Comment: Diabetes: >=200 mg/dL plus symp toms. Lactate WB 4.9 (Critical) 0.5 - 2.2 mmol/L [facility] Comment: Noted by instrumentation supervisor. FIO2 Art 100 % [facility] PF Ratio Art 238 [facility] Specimen Anatomical Collection Method Collection Time Receive d Time (Source) Location / / Volume Laterality Blood specimen 07/07/2017 6:57 PM 017 6:57 (specimen) EST PM EST Daphne Shahid MD CHEMISTRY ORDERABLES Performing Organization Address City/State/[place] [address] (ABNORMAL) BLOOD GAS 2 ARTERIAL (07/07/2017 5:31 PM EST) P athologist Signature pH Art 7.29 7.35 - [facility] (Critical) 7.45 [facility] Comment: Noted by instrumentation supervisor. pCO2 Art 48 (H) 35 - [...] CARE HOSPITAL LABORATORY COHB Art 0.3 % [facility] [...] Whole Blood 105 98 - 107 mmol/L [facility] Gluc Whole Bld 293 [...] City/[facility]/ZIP Code Phon e Number [address] Fibrinogen (07/07/2017 5:30 PM EST) P athologist Signature Fibrinogen 224 180 - 510 [facility] mg/dL [facility] Comment: Called by: JEET, Read [...] ORDERABLES Performing Organization Address City/[facility]/ZIP [facility] Phon e Number [address] APTT (07/07/2017 5:30 [...] HEMATOLOGY ORDERABLES Performing Organization Address City/[facility] [place] [address] (ABNORMAL) Prothrombin Time (07/07/2017 [...] HEMATOLOGY ORDERABLES Performing Organization Address City/[facility] [place] [address] (ABNORMAL) Hemogram (07/07/2017 5:30 PM EST) P athologist Signature WBC 19.6 (H) 4.0 - 9.5 [facility] x10(3)/[facility] LABORATORY RBC 3.08 (L) 4.58 - [facility] 5.54 [facility] x10(6)/[facility] LABORATORY Hemoglobin 9.2 (L) 13.7 - [facility] 16.5 gm/dL [facility] Hematocrit 28.0 (L) 40.5 - [facility] 48.5 % [facility] Comment: This result has been called to MONICA MORAN by DONALD GROSSMAN on 07 07 2017 at 1759, and has been read back. MCV 90.9 82.9 - 93.1 [facility] LABORATORY MCH 29.9 27.5 - 32.1 pg [facility] MCHC 32.9 32.0 - 35.7 gm/dL [facility] LABORATORY Platelets 155 145 - 357 x10(3)/[facility] LABORATORY RDWSD 46.5 (H) 36.0 - 45.0 [facility] LABORATORY RDWCV 14.1 (H) 11.4 - 13.8 % [facility]ORY MPV 9.5 7.6 - 12.9 [facility] LABORATORY nRBC % Auto 0.0 % [facility] nRBC Abs Auto 0.000 0.000 - 0.000 x10(3)/[facility] LABORATORY Specimen Anatomical Collection Method Collection Time Receive d Time (Source) Location / / Volume Laterality Blood specimen 07/07/2017 5:30 PM 017 5:34 (specimen) EST PM EST Resulting Agency Comment Spec In Lab Yifan Perez MD HEMATOLOGY ORDERABLES Performing Organization Address City/State/[place] [address] Prepare Platelets, Apheresis (07/07/2017 5:00 PM EST) P athologist Signature Dispensed? Yes [facility] Specimen Anatomical Collection Method Collection Time Receive d Time (Source) Location / / Volume Laterality Blood specimen 07/07/2017 5:00 PM 017 4:58 (specimen) EST PM EST Daphne Shahid MD BLOOD BANK ORDERABLES Performing Organization Address City/State/[place] [address] Platelet count (07/07/2017 4:55 PM EST) P athologist Signature Platelets 177 145 - 357 KATALINA DAVIS x10(3)/[facility] LABORATORY Plat Immature 1.5 0.0 - 7.4 KATALINA DAVIS % % [facility] Comment: Limitation of the Immature Platelet Frac tion (IPF)-May be less reliable when the platelet count is less than 46z132/u L due to statistical imprecision. The IPF [...] in a decreased state of production. References: [employer] The Clinical Value of the Immature Platelet Fraction (IPF) in Cell Recovery Document Number 10-1143 12/2010 [employer] The Role of the Imm ature [...] City/State/[place] [address] (ABNORMAL) Hemoglobin and Hematocrit, blood (07/07/2017 4:55 PM EST) P athologist Signature Hemoglobin 9.1 (L) 13.7 - 16.5 KATALINA DAVIS gm/dL [facility] Comment: This result has been [...] City/State/[place] [address] (ABNORMAL) BLOOD GAS 2 ARTERIAL (07/07/2017 4:38 PM EST) Analysis Performed At Patho logist Time Signature pH Art 7.37 7.35 - [facility] 7.45 [facility]ORY pCO2 Art 44 35 - 45 [facility] mmHg [facility] LAB[facility]ATORY pO2 Art 322 (H) 85 - 104 [facility] LABORATORY HCO3 Art 24.9 20.0 - [facility] 26.0 [facility] mmol/L [facility] LABORATORY BE Art -0.4 -3.0 - 3.0 [facility] mmol/L [facility] LABORATORY Hgb Blood Gas 10.1 (L) 13.7 - [facility] 16.5 gm/dL [facility]ATORY O2HB Art 98.7 (H) 94.0 - [facility] 97.0 % [facility]ORY COHB Art 0.1 % [facility] Comment: Nonsmokers: 0.5-1.5% COHB Smokers: Variable, but usually less than 10% Toxic: 20-30% COHB Lethal: Greater than 60% COHB METHB Art 0.3 <=1.5 % [facility] Na Whole Blood 130 (L) 135 - 145 mmol/L [facility] K Whole Blood 5.7 (H) 3.5 - 5.0 mmol/L [facility] Comment: Please note: Patients with WBC >100,000 may have falsely elevated Potassium levels. Contact the Clinical Chemistry L aboratory if there are any questions. ICa Whole Blood 0.89 (Critical) 1.15 - 1.33 mmol/L [facility] Comment: Noted by instrumentation supervisor. Note: ??Total bilirubin higher than 20 m g/dL may lead to falsely low ionized calcium. CL Whole Blood 101 98 - 107 mmol/L [facility] Gluc Whole Bld 295 [...] City/State/[place] [address] (ABNORMAL) BLOOD GAS 2 VENOUS (07/07/2017 4:06 PM EST) Analysis Performed At Patho logist Time Signature pH Cody 7.31 (L) 7.32 - [facility] 7.42 [facility] pCO2 Cody 47 41 - 51 [facility] LABORATORY pO2 Cody 53 (H) 25 - 40 [facility] LABORATORY HCO3 Cody 22.7 mmol/L [facility] BE Cody -3.7 mmol/L [facility] Hgb Blood Gas 10.2 (L) 13.7 - [facility] 16.5 gm/dL [facility] O2HB Cody 81.0 % [facility] [...] Blood 5.3 (H) 3.5 - 5.0 mmol/L [facility] Comment: Please note: Patients with WBC >100,000 may have falsely elevated Potassium levels. Contact the Clinical Chemistry L aboratory if there are any questions. ICa Whole Blood 0.90 (Critical) 1.15 - 1.33 mmol/L [facility] Comment: Noted by instrumentation supervisor. Note: ??Total bilirubin higher than 20 m g/dL may lead to falsely low ionized calcium. CL Whole Blood 100 98 - 107 mmol/L [facility] Gluc Whole Bld 231 (H) 65 - 199 mg/dL [facility] Comment: Diabetes: >=200 mg/dL plus symp toms Lactate WB 1.1 0.5 - 2.2 mmol/L [facility] LAB[facility] BGas Source Venous [facility] Specimen Anatomical Collection Method Collection Time Receive d Time (Source) Location / / Volume Laterality Blood specimen 07/07/2017 4:06 PM 017 4:06 (specimen) EST PM EST Daphne Shaihd MD CHEMISTRY ORDERABLES Performing Organization Address City/State/[place] [address] (ABNORMAL) BLOOD GAS 2 ARTERIAL (07/07/2017 4:05 PM EST) Analysis Performed At Patho logist Time Signature pH Art 7.36 7.35 - [facility] 7.45 [facility] pCO2 Art 40 35 - 45 [facility] mmHg [facility] LAB[facility]ATORY pO2 Art 282 (H) 85 - 104 [facility] LABORATORY HCO3 Art 22.1 20.0 - [facility] 26.0 [facility] mmol/L [facility] LABORATORY BE Art -3.4 (L) -3.0 - 3.0 [facility] mmol/L [facility] LABORATORY Hgb Blood Gas 10.2 (L) 13.7 - [facility] 16.5 gm/dL [facility]ORY O2HB Art 98.4 (H) 94.0 - [facility] 97.0 % [facility]ORY COHB Art 0.3 % [facility] Comment: Nonsmokers: 0.5-1.5% COHB Smokers: Variable, but usually less than 10% Toxic: 20-30% COHB Lethal: Greater than 60% COHB METHB Art 0.3 <=1.5 % [facility] Na Whole Blood 131 (L) 135 - 145 mmol/L [facility] K Whole Blood 5.4 (H) 3.5 - 5.0 mmol/L [facility] Comment: Please note: Patients with WBC >100,000 may have falsely elevated Potassium levels. Contact the Clinical Chemistry L aboratory if there are any questions. ICa Whole Blood 0.86 (Critical) 1.15 - 1.33 mmol/L [facility] Comment: Noted by instrumentation supervisor. Note: ??Total bilirubin higher than 20 m g/dL may lead to falsely low ionized calcium. CL Whole Blood 101 98 - 107 mmol/L [facility] Gluc Whole Bld 260 [...] City/State/[place] [address] (ABNORMAL) BLOOD GAS 2 ARTERIAL (07/07/2017 2:29 PM EST) Analysis Performed At Patho logist Time Signature pH Art 7.43 7.35 - [facility] 7.45 [facility]ORY pCO2 Art 36 35 - 45 [facility] LABORATORY pO2 Art 221 (H) 85 - 104 [facility] LABORATORY HCO3 Art 23.2 20.0 - [facility] 26.0 [facility] mmol/[facility] LABORATORY BE Art -1.2 -3.0 - 3.0 [facility] mmol/L [facility]OR[facility]ORY Hgb Blood Gas 13.9 13.7 - [facility] 16.5 gm/dL [facility] O2HB Art 97.8 (H) 94.0 - [facility] 97.0 % [facility] COHB Art 1.1 % [facility] [...] City/State/[place] [address] Prepare Coag Factors (Non-Hemophilia) (07/07/2017 1:25 PM EST) P athologist Signature Dispensed? Yes [facility] Specimen Anatomical Collection Method Collection Time Receive d Time (Source) Location / / Volume Laterality Blood specimen 07/07/2017 1:25 PM 017 1:21 (specimen) EST PM EST Daphne Shahid MD BLOOD BANK ORDERABLES Performing Organization Address City/State/ZIP Code Phon e Number [address] Prepare RBC (07/07/2017 1:10 PM EST) P athologist Signature Dispensed? Yes [facility] Specimen Anatomical Collection Method Collection Time Receive d Time (Source) Location / / Volume Laterality Blood specimen 07/07/2017 1:10 PM 017 1:05 (specimen) EST PM EST Daphne Shahid MD BLOOD BANK ORDERABLES Performing Organization Address City/State/[place] [address] POCT Glucose (07/07/2017 11:56 AM EST) P athologist Signature POC Glucose 188 65 - 199 [facility] Comment: Supplemental ranges: <140 mg/dL before meals <180 mg/dL all other times of the day Specimen Anatomical Collection Method Collection Time Receive d Time (Source) Location / / Volume Laterality Blood specimen 07/07/2017 11:56 7 (specimen) AM EST 11:56 AM EST Daphne Shahid MD POINT OF CARE TEST ORDERABLE S Performing Organization Address City/[facility]/[place] [address] POCT Glucose (07/07/2017 11:05 AM EST) P athologist Signature POC Glucose 168 65 - 199 [facility] mg/dL [facility] Comment: Supplemental ranges: <140 mg/dL before meals <180 mg/dL all other times of the day Specimen Anatomical Collection Method Collection Time Receive d Time (Source) Location / / Volume Laterality Blood specimen 07/07/2017 11:05 7 (specimen) AM EST 11:05 AM EST Daphne Shahid MD POINT OF CARE TEST ORDERABLE S Performing Organization Address City/State/[place] [address] POCT Glucose (07/07/2017 10:02 AM EST) athologist Signature POC Glucose 191 65 - 199 KATALINA ZHAORYAN mg/dL [facility] Comment: Supplemental ranges: <140 mg/dL before meals <180 mg/dL all other times of the day Specimen Anatomical Collection Method Collection Time Receive d Time (Source) Location / / Volume Laterality Blood specimen 07/07/2017 10:02 7 (specimen) AM EST 10:02 AM EST Daphne Shahid MD POINT OF CARE TEST ORDERABLE S Performing Organization Address City/State/ZIP Code Phon e Number [address] POCT Glucose (07/07/2017 7:53 AM EST) athologist Signature POC Glucose 178 65 - [address] [facility] mg/dL [facility] Comment: Supplemental ranges: <140 mg/dL before meals <180 mg/dL all other times of the day Specimen Anatomical Collection Method Collection Time Receive d Time (Source) Location / / Volume Laterality Blood specimen 07/07/2017 7:53 AM 017 7:53 (specimen) EST AM EST Daphne Shahid MD POINT OF CARE TEST ORDERABLE S Performing Organization Address City/State/[place] [address] POCT Glucose (07/07/2017 7:03 AM EST) athologist Signature POC Glucose 188 65 - [address] [facility] mg/dL [facility] Comment: Supplemental ranges: <140 mg/dL before meals <180 mg/dL all other times of the day Specimen Anatomical Collection Method Collection Time Receive d Time (Source) Location / / Volume Laterality Blood specimen 07/07/2017 7:03 AM 017 7:03 (specimen) EST AM EST Daphne Shahid MD POINT OF CARE TEST ORDERABLE S Performing Organization Address City/State/[place] [address] (ABNORMAL) POCT Glucose (07/07/2017 6:17 AM EST) athologist Signature POC Glucose 207 (H) 65 - 199 [facility] mg/dL [facility] Comment: Supplemental ranges: <140 mg/dL before meals <180 mg/dL all other times of the day Specimen Anatomical Collection Method Collection Time Receive d Time (Source) Location / / Volume Laterality Blood specimen 07/07/2017 6:17 AM 017 6:17 (specimen) EST AM EST Daphne Shahid MD POINT OF CARE TEST ORDERABLE S Performing Organization Address City/State/ZIP Code Phon e Number [place] [id number] Differential, Automated (07/07/2017 5:15 AM EST) [facility] Neutrophils % 69.7 % [facility] Neutr Abs (ANC) 5.32 1.70 - [facility] 6.10 [facility] x10(3)/[facility] LABORATORY Lymphocytes % 16.3 % [facility] Lymphocytes Abs 1.2 0.9 - 3.2 [facility] x10(3)/[facility] LABORATORY Monocytes % 10.5 % [facility] Monocyte Abs 0.8 0.3 - 0.9 [facility] x10(3)[facility] LABORATORY Eosinophils % 2.5 % [facility] Eosinophils Abs 0.2 0.0 - 0.4 [facility] x10(3)/[facility] LABORATORY Basophils % 0.7 % [facility] Basophils Abs 0.0 0.0 - 0.1 [facility] x10(3)/[facility] LABORATORY Immature Gran % 0.30 [...] Melisa Gran Abs 0.02 0.00 - 0.04 x10(3)/[facility] LABORATORY Specimen Anatomical Collection Method Collection Time Receive d Time (Source) Location / / Volume Laterality Blood specimen 07/07/2017 5:15 AM 017 5:34 (specimen) EST AM EST Resulting Agency Comment Spec In Lab Daphne Shahid MD HEMATOLOGY ORDERABLES Performing Organization Address City/[facility]/[place] [address] (ABNORMAL) Hemogram (07/07/2017 5:15 AM EST) Analysis Performed At Patho logist Time Signature WBC 7.6 4.0 - 9.5 [facility] x10(3)/[facility] LABORATORY RBC 4.82 4.58 - [facility] 5.54 [facility] x10(6)/[facility] LABORATORY Hemoglobin 14.4 13.7 - [facility] 16.5 gm/dL [facility] LABORATORY Hematocrit 42.1 40.5 - [facility] 48.5 % [facility] LABORATORY MCV 87.3 82.9 - [facility] 93.1 [facility] LABORATORY MCH 29.9 27.5 - [facility] 32.1 pg [facility] LABORATORY MCHC 34.2 32.0 - [facility] 35.7 gm/dL [facility] LABORATORY Platelets 188 145 - 357 [facility] x10(3)/[facility] LABORATORY RDWSD 45.1 (H) 36.0 - [facility] 45.0 [facility] LABORATORY RDWCV 14.3 (H) 11.4 - [facility] 13.8 % [facility] LABORATORY MPV 9.4 7.6 - 12.9 [facility] LABORATORY nRBC % Auto 0.0 % [facility] nRBC Abs Auto 0.000 0.000 - [facility] 0.000 [facility] x10(3)/[facility] LABORATORY Specimen Anatomical Collection Method Collection Time Receive d Time (Source) Location / / Volume Laterality Blood specimen 07/07/2017 5:15 AM 017 5:34 (specimen) EST AM EST Resulting Agency Comment Spec In Lab Daphne Shahid MD HEMATOLOGY ORDERABLES Performing Organization Address City/State/[place] [address] (ABNORMAL) APTT (07/07/2017 5:15 [...] City/[facility]/[place] [address] Magnesium (07/07/2017 5:15 AM EST) athologist Signature Magnesium 0.94 0.69 - 1.07 [facility] mmol/L [facility] LABORATORY Specimen Anatomical Collection Method Collection Time Receive d Time (Source) Location / / Volume Laterality Blood specimen 07/07/2017 5:15 AM 017 5:34 (specimen) EST AM EST Resulting Agency Comment Spec In Lab Daphne Shahid MD CHEMISTRY ORDERABLES Performing Organization Address City/[facility]/[place] [address] (ABNORMAL) Basic Metabolic Panel (non-fasting) (07/07/2017 5:15 AM EST) P athologist Signature Glucose Lvl 203 (H) 65 - 199 [facility] mg/dL [facility] [...] or in patients with acute kidney failure. [email or web address] Specimen Anatomical Collection Method Collection Time Receive d Time (Source) Location / / Volume Laterality Blood specimen 07/07/2017 5:15 AM 017 5:34 (specimen) EST AM EST Resulting Agency Comment Spec In Lab Daphne Shahid MD CHEMISTRY ORDERABLES Performing Organization Address City/State/[place] [address] (ABNORMAL) Cardiac Enzymes (LEB/CGP) (07/07/2017 5:15 AM EST) P athologist Signature Troponin-T 2.07 (H) 0.00 - [facility] 0.00 ng/mL [facility] LABORATORY Comment: The 99th percentile for [...] additional sample may be indicated. Reference: Third [place] Definition of Myocardial Infarction. Journal of the [place] [employer] 2012;60:1581-98 CK, Total 88 0 - 200 unit/L [facility] LABORATORY Specimen Anatomical Collection Method Collection Time Receive d Time (Source) Location / / Volume Laterality Blood specimen 07/07/2017 5:15 AM 017 5:34 (specimen) EST AM EST Resulting Agency Comment Spec In Lab Daphne Shahid MD CHEMISTRY ORDERABLES Performing Organization Address City/[facility]/ZIP Code Phon e Number [address] POCT Glucose (07/07/2017 5:01 AM EST) athologist Signature POC Glucose 182 65 - 199 [facility] Comment: Supplemental ranges: <140 mg/dL before meals <180 mg/dL all other times of the day Specimen Anatomical Collection Method Collection Time Receive d Time (Source) Location / / Volume Laterality Blood specimen 07/07/2017 5:01 AM 017 5:01 (specimen) EST AM EST Daphne Shaihd MD POINT OF CARE TEST ORDERABLE S Performing Organization Address City/[facility]/ZIP [facility] [place] Phon e Number [address] POCT Glucose (07/07/2017 4:08 AM EST) athologist Signature POC Glucose 199 65 - 199 [facility]/dL [facility] Comment: Supplemental ranges: <140 mg/dL before meals <180 mg/dL all other times of the day Specimen Anatomical Collection Method Collection Time Receive d Time (Source) Location / / Volume Laterality Blood specimen 07/07/2017 4:08 AM 017 4:08 (specimen) EST AM EST Daphne Shahid MD POINT OF CARE TEST ORDERABLE S Performing Organization Address City/State/ZIP Code Phon e Number [address] POCT Glucose (07/07/2017 3:03 AM EST) athologist Signature POC Glucose 188 65 - 199 [place] mg/dL [facility] Comment: Supplemental ranges: <140 mg/dL before meals <180 mg/dL all other times of the day Specimen Anatomical Collection Method Collection Time Receive d Time (Source) Location / / Volume Laterality Blood specimen 07/07/2017 3:03 AM 017 3:03 (specimen) EST AM EST Daphne Shahid MD POINT OF CARE TEST ORDERABLE S Performing Organization Address City/State/[place] [address] (ABNORMAL) POCT Glucose (07/07/2017 2:08 AM EST) athologist Signature POC Glucose 200 (H) 65 - 199 [place] mg/dL [facility] LAB[facility] Comment: Supplemental ranges: <140 mg/dL before meals <180 mg/dL all other times of the day Specimen Anatomical Collection Method Collection Time Receive d Time (Source) Location / / Volume Laterality Blood specimen 07/07/2017 2:08 AM 017 2:08 (specimen) EST AM EST Daphne Shahid MD POINT OF CARE TEST ORDERABLE S Performing Organization Address City/State/ZIP Code Phon e Number [address] (ABNORMAL) POCT Glucose (07/07/2017 1:31 AM EST) athologist Signature POC Glucose 209 (H) 65 - 199 [place] mg/dL [facility] Comment: Supplemental ranges: <140 mg/dL before meals <180 mg/dL all other times of the day Specimen Anatomical Collection Method Collection Time Receive d Time (Source) Location / / Volume Laterality Blood specimen 07/07/2017 1:31 AM 017 1:31 (specimen) EST AM EST Daphne Shahid MD POINT OF CARE TEST ORDERABLE S Performing Organization Address City/State/[place] [address] XR Chest PA or [...] - 199 [facility] mg/dL [facility] Comment: Supplemental ranges: <140 mg/dL before meals <180 mg/dL all other times of the day Specimen Anatomical Collection Method Collection Time Receive d Time (Source) Location / / Volume Laterality Blood specimen 07/07/2017 12:07 7 (specimen) AM EST 12:07 AM EST Daphne Shahid MD POINT OF CARE TEST ORDERABLE S Performing Organization Address City/State/[place] [address] (ABNORMAL) APTT (07/07/2017 12:00 [...] City/[facility]/[place] [address] POCT Glucose (07/06/2017 9:55 PM EST) athologist Signature POC Glucose 109 65 - 199 [facility] Comment: Supplemental ranges: <140 mg/dL before meals <180 mg/dL all other times of the day Specimen Anatomical Collection Method Collection Time Receive d Time (Source) Location / / Volume Laterality Blood specimen 07/06/2017 9:55 PM 017 9:55 (specimen) EST PM EST Daphne Shahid MD POINT OF CARE TEST ORDERABLE S Performing Organization Address City/[facility]/[place] [address] POCT Glucose (07/06/2017 9:04 PM EST) athologist Signature POC Glucose 120 65 - [address] [facility] mg/dL [facility] Comment: Supplemental ranges: <140 mg/dL before meals <180 mg/dL all other times of the day Specimen Anatomical Collection Method Collection Time Receive d Time (Source) Location / / Volume Laterality Blood specimen 07/06/2017 9:04 PM 017 9:04 (specimen) EST PM EST Daphne Shahid MD POINT OF CARE TEST ORDERABLE S Performing Organization Address City/[facility]/[place] [address] POCT Glucose (07/06/2017 7:45 PM EST) athologist Signature POC Glucose 158 65 - 199 [facility] mg/dL [facility] LAB[facility]ORY Comment: Supplemental ranges: <140 mg/dL before meals <180 mg/dL all other times of the day Specimen Anatomical Collection Method Collection Time Receive d Time (Source) Location / / Volume Laterality Blood specimen 07/06/2017 7:45 PM 017 7:45 (specimen) EST PM EST Daphne Shahid MD POINT OF CARE TEST ORDERABLE S Performing Organization Address City/[facility]/[place] [address] Potassium (07/06/2017 7:40 PM EST) athologist Signature Potassium 3.9 3.5 - 5.0 [facility] mmol/L [facility] LAB[facility] Comment: Please note: ??Patients with [...] City/[facility]/[place] [address] (ABNORMAL) Cardiac Enzymes (LEB/CGP) (07/06/2017 7:40 PM EST) athologist Signature Troponin-T 2.27 (H) 0.00 - [place] 0.00 ng/mL [facility] Comment: The 99th percentile for [...] additional sample may be indicated. Reference: Third [place] Definition of Myocardial Infarction. Journal of the [place] [employer] 2012;60:1581-98 CK, Total 93 0 - 200 unit/L [facility] Specimen Anatomical Collection Method Collection Time Receive d Time (Source) Location / / Volume Laterality Blood specimen 07/06/2017 7:40 PM 017 7:52 (specimen) EST PM EST Resulting Agency Comment Spec In Lab Daphne Shahid MD CHEMISTRY ORDERABLES Performing Organization Address City/State/[place] [address] (ABNORMAL) POCT Glucose (07/06/2017 7:13 PM EST) athologist Signature POC Glucose 200 (H) 65 - 199 [facility] mg/dL [facility] Comment: Supplemental ranges: <140 mg/dL before meals <180 mg/dL all other times of the day Specimen Anatomical Collection Method Collection Time Receive d Time (Source) Location / / Volume Laterality Blood specimen 07/06/2017 7:13 PM 017 7:13 (specimen) EST PM EST Daphne Shahid MD POINT OF CARE TEST ORDERABLE S Performing Organization Address City/[facility]/[place] [address] (ABNORMAL) APTT (07/06/2017 6:15 [...] City/[facility]/[place] [address] (ABNORMAL) POCT Glucose (07/06/2017 6:03 PM EST) athologist Signature POC Glucose 236 (H) 65 - 199 [facility] Comment: Supplemental ranges: <140 mg/dL before meals <180 mg/dL all other times of the day Specimen Anatomical Collection Method Collection Time Receive d Time (Source) Location / / Volume Laterality Blood specimen 07/06/2017 6:03 PM 017 6:03 (specimen) EST PM EST Daphne Shahid MD POINT OF CARE TEST ORDERABLE S Performing Organization Address City/[facility]/[place] [address] (ABNORMAL) POCT Glucose (07/06/2017 5:01 PM EST) athologist Signature POC Glucose 235 (H) 65 - [address] [facility] mg/dL [facility] Comment: Supplemental ranges: <140 mg/dL before meals <180 mg/dL all other times of the day Specimen Anatomical Collection Method Collection Time Receive d Time (Source) Location / / Volume Laterality Blood specimen 07/06/2017 5:01 PM 017 5:01 (specimen) EST PM EST Daphne Shahid MD POINT OF CARE TEST ORDERABLE S Performing Organization Address City/State/[place] [address] (ABNORMAL) POCT Glucose (07/06/2017 4:06 PM EST) athologist Signature POC Glucose 202 (H) 65 - 199 [place] mg/dL [facility] Comment: Supplemental ranges: <140 mg/dL before meals <180 mg/dL all other times of the day Specimen Anatomical Collection Method Collection Time Receive d Time (Source) Location / / Volume Laterality Blood specimen 07/06/2017 4:06 PM 017 4:06 (specimen) EST PM EST Daphne Shahid MD POINT OF CARE TEST ORDERABLE S Performing Organization Address City/State/[place] [address] POCT Glucose (07/06/2017 2:59 PM EST) athologist Signature POC Glucose 178 65 - 199 [place] mg/dL [facility] Comment: Supplemental ranges: <140 mg/dL before meals <180 mg/dL all other times of the day Specimen Anatomical Collection Method Collection Time Receive d Time (Source) Location / / Volume Laterality Blood specimen 07/06/2017 2:59 PM 017 2:59 (specimen) EST PM EST Daphne Shahid MD POINT OF CARE TEST ORDERABLE S Performing Organization Address City/State/[place] [address] (ABNORMAL) Cardiac Enzymes (LEB/CGP) (07/06/2017 2:10 PM EST) athologist Signature Troponin-T 2.34 (H) 0.00 - [facility] 0.00 ng/mL [facility] Comment: The 99th percentile for [...] additional sample may be indicated. Reference: Third [place] Definition of Myocardial Infarction. Journal of the [place] [employer] 2012;60:1581-98 CK, Total 101 0 - 200 unit/L [facility] Specimen Anatomical Collection Method Collection Time Receive d Time (Source) Location / / Volume Laterality Blood specimen 07/06/2017 2:10 PM 017 2:26 (specimen) EST PM EST Resulting Agency Comment Spec In Lab Daphne Shahid MD CHEMISTRY ORDERABLES Performing Organization Address City/State/[place] [address] POCT Glucose (07/06/2017 2:08 PM EST) P athologist Signature POC Glucose 192 65 - 199 [facility] mg/dL [facility] Comment: Supplemental ranges: <140 mg/dL before meals <180 mg/dL all other times of the day Specimen Anatomical Collection Method Collection Time Receive d Time (Source) Location / / Volume Laterality Blood specimen 07/06/2017 2:08 PM 017 2:08 (specimen) EST PM EST Daphne Shahid MD POINT OF CARE TEST ORDERABLE S Performing Organization Address City/State/ZIP Code Phon e Number [address] POCT Glucose (07/06/2017 1:04 PM EST) P athologist Signature POC Glucose 162 65 - 199 [facility]/dL [facility] Comment: Supplemental ranges: <140 mg/dL before meals <180 mg/dL all other times of the day Specimen Anatomical Collection Method Collection Time Receive d Time (Source) Location / / Volume Laterality Blood specimen 07/06/2017 1:04 PM 017 1:04 (specimen) EST PM EST Daphne Shahid MD POINT OF CARE TEST ORDERABLE S Performing Organization Address City/[facility]/ZIP Code Phon e Number [address] POCT Glucose (07/06/2017 12:05 PM EST) athologist Signature POC Glucose 196 65 - 199 [facility] mg/dL [facility] Comment: Supplemental ranges: <140 mg/dL before meals <180 mg/dL all other times of the day Specimen Anatomical Collection Method Collection Time Receive d Time (Source) Location / / Volume Laterality Blood specimen 07/06/2017 12:05 7 (specimen) PM EST 12:05 PM EST Daphne Shahid MD POINT OF CARE TEST ORDERABLE S Performing Organization Address City/State/[place] [address] EKG 12 Lead (07/06/2017 12:00 PM EST) Component Value Ref Range Test Analysis Performed Pathologis t Method Time At Signature Ventricular rate 91 BPM MUSE SYSTEM Atrial Rate 91 BPM MUSE SYSTEM P-R Interval 140 ms MUSE SYSTEM QRS Duration 94 ms MUSE SYSTEM Q-T Interval 394 ms MUSE SYSTEM QTC Calculated 484 ms MUSE SYSTEM (Bezet) Calculated P Dumont 36 degrees MUSE SYSTEM Calculated R Dumont -19 degrees MUSE SYSTEM Calculated T Dumont 104 degrees MUSE SYSTEM INTERPRETATION Normal sinus rhythm MUSE SYSTEM 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) ST & T wave abnormality, consider lateral ischemia Abnormal ECG When compared with ECG of 05-JUL-2017 20:39, No significant change was found Confirmed by MD Verma Gregory A. ([id number]) on 07/06/2017 5:07:33 PM Specimen Anatomical Collection [...] City/[facility]/[place] [address] Antibody screen (07/06/2017 12:00 PM EST) [facility] Method Time Signature Ab Screen Negative [facility] LABORATORY Expires at 07/09/2017 [facility] 235 on: [facility] LABOR[facility]ORY Specimen Anatomical Collection Method Collection Time Receive d Time (Source) Location / / Volume Laterality Blood specimen 07/06/2017 12:00 7 (specimen) PM EST 12:24 PM EST Resulting Agency Comment Spec In Lab Daphne Shahid MD BLOOD BANK ORDERABLES Performing Organization Address City/[facility]/[place] [address] ABO/Rh Typing (07/06/2017 12:00 [...] Organization Address City/State/[place] [address] Prothrombin Time (07/06/2017 11:24 [...] City/[facility]/[place] [address] (ABNORMAL) APTT (07/06/2017 11:24 [...] Organization Address City/State/[place] [address] POCT Glucose (07/06/2017 11:02 AM EST) athologist Signature POC Glucose 187 65 - [address] [facility] mg/dL [facility] Comment: Supplemental ranges: <140 mg/dL before meals <180 mg/dL all other times of the day Specimen Anatomical Collection Method Collection Time Receive d Time (Source) Location / / Volume Laterality Blood specimen 07/06/2017 11:02 7 (specimen) AM EST 11:02 AM EST Daphne Shahid MD POINT OF CARE TEST ORDERABLE S Performing Organization Address City/State/ZIP Code Phon e Number [address] POCT Glucose (07/06/2017 10:18 AM EST) athologist Signature POC Glucose 193 65 - [address] [facility] mg/dL [facility] Comment: Supplemental ranges: <140 mg/dL before meals <180 mg/dL all other times of the day Specimen Anatomical Collection Method Collection Time Receive d Time (Source) Location / / Volume Laterality Blood specimen 07/06/2017 10:18 7 (specimen) AM EST 10:18 AM EST Daphne Shahid MD POINT OF CARE TEST ORDERABLE S Performing Organization Address City/State/ZIP Code Phon e Number [address] POCT Glucose (07/06/2017 9:25 AM EST) athologist Signature POC Glucose 182 65 - 199 [place] mg/dL [facility] Comment: Supplemental ranges: <140 mg/dL before meals <180 mg/dL all other times of the day Specimen Anatomical Collection Method Collection Time Receive d Time (Source) Location / / Volume Laterality Blood specimen 07/06/2017 9:25 AM 017 9:25 (specimen) EST AM EST Daphne Shahid MD POINT OF CARE TEST ORDERABLE S Performing Organization Address City/State/[place] [address] (ABNORMAL) Cardiac Enzymes (LEB/CGP) (07/06/2017 8:10 AM EST) athologist Signature Troponin-T 2.26 (H) 0.00 - [facility] 0.00 ng/mL [facility] Comment: The 99th percentile for [...] additional sample may be indicated. Reference: Third [place] Definition of Myocardial Infarction. Journal of the [place] [employer] 2012;60:1581-98 CK, Total 124 0 - 200 unit/L [facility] LABOR[facility] Specimen Anatomical Collection Method Collection Time Receive d Time (Source) Location / / Volume Laterality Blood specimen 07/06/2017 8:10 AM 017 8:23 (specimen) EST AM EST Resulting Agency Comment Spec In Lab Daphne Shahid MD CHEMISTRY ORDERABLES Performing Organization Address City/State/[place] [address] Magnesium (07/06/2017 8:10 AM EST) athologist Signature Magnesium 0.84 0.69 - 1.07 [facility] mmol/L [facility] LABORATORY Specimen Anatomical Collection Method Collection Time Receive d Time (Source) Location / / Volume Laterality Blood specimen 07/06/2017 8:10 AM 017 8:21 (specimen) EST AM EST Resulting Agency Comment Spec In Lab Daphne Shahid MD CHEMISTRY ORDERABLES Performing Organization Address City/[facility]/[place] [address] (ABNORMAL) Basic Metabolic Panel (non-fasting) (07/06/2017 8:10 AM EST) P athologist Signature Glucose Lvl 199 65 - 199 [facility] mg/dL [facility] [...] or in patients with acute kidney failure. [email or web address] Specimen Anatomical Collection Method Collection Time Receive d Time (Source) Location / / Volume Laterality Blood specimen 07/06/2017 8:10 AM 017 8:21 (specimen) EST AM EST Resulting Agency Comment Spec In Lab Daphne Shahid MD CHEMISTRY ORDERABLES Performing Organization Address City/[facility]/[place] [address] POCT Glucose (07/06/2017 7:34 AM EST) P athologist Signature POC Glucose 198 65 - 199 [facility] Comment: Supplemental ranges: <140 mg/dL before meals <180 mg/dL all other times of the day Specimen Anatomical Collection Method Collection Time Receive d Time (Source) Location / / Volume Laterality Blood specimen 07/06/2017 7:34 AM 017 7:34 (specimen) EST AM EST Daphne Shahid MD POINT OF CARE TEST ORDERABLE S Performing Organization Address City/State/ZIP Code Phon e Number [address] POCT Glucose (07/06/2017 7:03 AM EST) athologist Signature POC Glucose 181 65 - 199 [facility] Comment: Supplemental ranges: <140 mg/dL before meals <180 mg/dL all other times of the day Specimen Anatomical Collection Method Collection Time Receive d Time (Source) Location / / Volume Laterality Blood specimen 07/06/2017 7:03 AM 017 7:03 (specimen) EST AM EST Daphne Shahid MD POINT OF CARE TEST ORDERABLE S Performing Organization Address City/State/[place] [address] XR Chest PA or [...] POC Glucose 172 65 - 199 [facility] mg/dL [facility] Comment: Supplemental ranges: <140 mg/dL before meals <180 mg/dL all other times of the day Specimen Anatomical Collection Method Collection Time Receive d Time (Source) Location / / Volume Laterality Blood specimen 07/06/2017 6:21 AM 017 6:21 (specimen) EST AM EST Daphne Shahid MD POINT OF CARE TEST ORDERABLE S Performing Organization Address City/State/[place] [address] POCT Glucose (07/06/2017 5:08 AM EST) athologist Signature POC Glucose 154 65 - 199 [facility] mg/dL [facility] Comment: Supplemental ranges: <140 mg/dL before meals <180 mg/dL all other times of the day Specimen Anatomical Collection Method Collection Time Receive d Time (Source) Location / / Volume Laterality Blood specimen 07/06/2017 5:08 AM 017 5:08 (specimen) EST AM EST Daphne Shahid MD POINT OF CARE TEST ORDERABLE S Performing Organization Address City/State/ZIP Code Phon e Number [address] POCT Glucose (07/06/2017 4:05 AM EST) athologist Signature POC Glucose 142 65 - 199 [facility] Comment: Supplemental ranges: <140 mg/dL before meals <180 mg/dL all other times of the day Specimen Anatomical Collection Method Collection Time Receive d Time (Source) Location / / Volume Laterality Blood specimen 07/06/2017 4:05 AM 017 4:05 (specimen) EST AM EST Daphne Shahid MD POINT OF CARE TEST ORDERABLE S Performing Organization Address City/[facility]/ZIP Code Phon e Number [address] POCT Glucose (07/06/2017 3:00 AM EST) athologist Signature POC Glucose 116 65 - 199 [facility] Comment: Supplemental ranges: <140 mg/dL before meals <180 mg/dL all other times of the day Specimen Anatomical Collection Method Collection Time Receive d Time (Source) Location / / Volume Laterality Blood specimen 07/06/2017 3:00 AM 017 3:00 (specimen) EST AM EST Daphne Shahid MD POINT OF CARE TEST ORDERABLE S Performing Organization Address City/State/ZIP Code Phon e Number [address] Potassium (07/06/2017 2:20 AM EST) athologist Signature Potassium 3.9 3.5 - 5.0 [facility] mmol/L [facility] LABOR[facility]ORY Comment: Please note: ??Patients with [...] City/State/[place] [address] Differential, Automated (07/06/2017 2:20 AM EST) athologist Signature Neutrophils % 72.9 % [facility] LABORATORY Neutr Abs (ANC) 5.53 1.70 - [facility] 6.10 [facility] x10(3)[facility] LABORATORY Lymphocytes % 16.4 % [facility] Lymphocytes Abs 1.2 0.9 - 3.2 [facility] x10(3)/[facility] [facility] LABORATORY Monocytes % 9.4 % [facility] Monocyte Abs 0.7 0.3 - 0.9 [facility] x10(3)/[facility] LABORATORY Eosinophils % 0.5 % [facility] Eosinophils Abs 0.0 0.0 - 0.4 [facility] x10(3)[facility] LABORATORY Basophils % 0.4 % [facility] Basophils Abs 0.0 0.0 - 0.1 [facility] x10(3)/[facility] LABORATORY Immature Gran % 0.40 % [facility] Comment: Immature granulocytes(IG's)percentage an d absolute count will include metamyelocytes, myelocytes, and promyelo cytes. Blood smears from CBCs yielding IG's will be scanned manually for concor dance. If this scan disagrees with the automated IG or if promyelocytes are not ed, a manual differential will be performed. Mleisa Gran Abs 0.03 0.00 - 0.04 x10(3)/[facility] Y [facility] LABORATORY Specimen Anatomical Collection Method Collection Time Receive d Time (Source) Location / / Volume Laterality Blood specimen 07/06/2017 2:20 AM 017 2:33 (specimen) EST AM EST Resulting Agency Comment Spec In Lab Daphne Shahid MD HEMATOLOGY ORDERABLES Performing Organization Address City/State/[place] [address] (ABNORMAL) Hemogram (07/06/2017 2:20 AM EST) Analysis Performed At Patho logist Time Signature WBC 7.6 4.0 - 9.5 [facility] x[facility](3[facility] LABORATORY RBC 4.52 (L) 4.58 - [facility] 5.54 [facility] x10(6)/[facility] LABORATORY Hemoglobin 13.4 (L) 13.7 - [facility] 16.[facility] gm/dL [facility] LABORATORY Hematocrit 39.7 (L) 40.5 - [facility] 48.5 % [facility] LABORATORY MCV 87.8 82.9 - [facility] 93.1 [facility] LABORATORY MCH 29.6 27.5 - [place] 32.1 pg [facility] LABORATORY MCHC 33.8 32.0 - [facility] 35.7 gm/dL [facility] LABORATORY Platelets 189 145 - 357 [facility] x10(3)/[facility] LABORATORY RDWSD 45.6 (H) 36.0 - [facility] 45.0 [facility] LABORATORY RDWCV 14.3 (H) 11.4 - [facility] 13.8 % [facility] LABORATORY MPV 9.1 7.6 - 12.9 [facility] nRBC % Auto 0.0 % [facility] LABORATORY nRBC Abs Auto 0.000 0.000 - [place] [facility] 0.000 [facility] x10(3)/[facility] LABORATORY Specimen Anatomical Collection Method Collection Time Receive d Time (Source) Location / / Volume Laterality Blood specimen 07/06/2017 2:20 AM 017 2:33 (specimen) EST AM EST Resulting Agency Comment Spec In Lab Daphne Shahid MD HEMATOLOGY ORDERABLES Performing Organization Address City/State/ZIP Code Phon [place] [address] (ABNORMAL) APTT (07/06/2017 2:20 [...] Organization Address City/State/[place] [address] POCT Glucose (07/06/2017 2:20 AM EST) athologist Signature POC Glucose 115 65 - 199 [facility] mg/dL [facility] LABORATORY Comment: Supplemental ranges: <140 mg/dL before meals <180 mg/dL all other times of the day Specimen Anatomical Collection Method Collection Time Receive d Time (Source) Location / / Volume Laterality Blood specimen 07/06/2017 2:20 AM 017 2:20 (specimen) EST AM EST Daphne Shahid MD POINT OF CARE TEST ORDERABLE S Performing Organization Address City/State/[place] [address] (ABNORMAL) Cardiac Enzymes (LEB/CGP) (07/06/2017 2:20 AM EST) athologist Signature Troponin-T 2.13 (H) 0.00 - [facility] 0.00 ng/mL [facility] LABORATORY Comment: The 99th percentile for [...] additional sample may be indicated. Reference: Third [place] Definition of Myocardial Infarction. Journal of the [place] [employer]iology 2012;60:1581-98 CK, Total 129 0 - 200 unit/L [facility] LABORATORY Specimen Anatomical Collection Method Collection Time Receive d Time (Source) Location / / Volume Laterality Blood specimen 07/06/2017 2:20 AM 017 2:33 (specimen) EST AM EST Resulting Agency Comment Spec In Lab Daphne Shahid MD CHEMISTRY ORDERABLES Performing Organization Address City/State/[place] [address] (ABNORMAL) Hemoglobin A1c (07/06/2017 [...] [id number] Est Avg Gluc See note mg/dL [facility] [...] with hemoglobinopathies. Additional resources are available on [facility] ADA website. Macario HAMMOND, Ruthann J, Deysi R, et al. ??Tr anslating the A1C assay into estimated average glucose values. ??Diabetes Care 2008:31(8):8331-5069. Specimen Anatomical Collection Method Collection Time Receive d Time (Source) Location / / Volume Laterality Blood specimen 07/06/2017 2:20 AM 017 2:34 (specimen) EST AM EST Resulting Agency Comment Spec In Lab Daphne Shahid MD CHEMISTRY ORDERABLES Performing Organization Address City/State/[place] [address] (ABNORMAL) Lipid Panel (07/06/2017 2:20 AM EST) [facility] Method Time Signature Chol, Total 150 <=239 [place] mg/dL [facility] LABORATORY Triglycerides 129 <=199 [place] mg/dL [facility] LABORATORY HDL 32 (L) >=40 [place] mg/dL [facility] LABORATORY LDL Cholesterol 92 <=190 [place] mg/dL [facility] LABORATORY Chol/HDL Ratio 4.7 ratio [place] [facility] LABORATORY Lipid See Note [place] Hernandes [facility] LABORATORY Comment: Lipid management should be guided by a p atient? s ASCVD risk, goals and preferences. ACC/AHA Guidelines recommend high intens ity statin if clinical ASCVD or LDL greater than or equal to 190 mg/dL. http://Black Card Mediaur[employer]lu [employer].com/VMZ-XCN-Mkyozlpmi Adults aged 40-75 with LDL 70-189 mg/dL should have their 10 year ASCVD risk estimated with the ACC/AHA ASCVD risk es timator http://tools.acc.org/JBPGH-Vxcf-Bqukoimx r/ Statin should be discussed if risk [...] City/State/[place] [address] POCT Glucose (07/06/2017 1:09 AM EST) P athologist Signature POC Glucose 121 65 - 199 [facility] mg/dL [facility] LABORATORY Comment: Supplemental ranges: <140 mg/dL before meals <180 mg/dL all other times of the day Specimen Anatomical Collection Method Collection Time Receive d Time (Source) Location / / Volume Laterality Blood specimen 07/06/2017 1:09 AM 017 1:09 (specimen) EST AM EST Daphne Shahid MD POINT OF CARE TEST ORDERABLE S Performing Organization Address City/State/ZIP [place] [address] POCT Glucose (07/06/2017 12:06 AM EST) athologist Signature POC Glucose 147 65 - 199 [facility] mg/dL [facility] LABORATORY Comment: Supplemental ranges: <140 mg/dL before meals <180 mg/dL all other times of the day Specimen Anatomical Collection Method Collection Time Receive d Time (Source) Location / / Volume Laterality Blood specimen 07/06/2017 12:06 7 (specimen) AM EST 12:06 AM EST Daphne Shahid MD POINT OF CARE TEST ORDERABLE S Performing Organization Address City/State/[place] [address] (ABNORMAL) POCT Glucose (07/05/2017 10:56 PM EST) athologist Signature POC Glucose 200 (H) 65 - 199 [facility] mg/dL [facility] LABORATORY Comment: Supplemental ranges: <140 mg/dL before meals <180 mg/dL all other times of the day Specimen Anatomical Collection Method Collection Time Receive d Time (Source) Location / / Volume Laterality Blood specimen 07/05/2017 10:56 7 (specimen) PM EST 10:56 PM EST Daphne Shahid MD POINT OF CARE TEST ORDERABLE S Performing Organization Address City/State/[place] [address] (ABNORMAL) POCT Glucose (07/05/2017 10:05 PM EST) athologist Signature POC Glucose 225 (H) 65 - 199 [facility] mg/dL [facility] LABORATORY Comment: Supplemental ranges: <140 mg/dL before meals <180 mg/dL all other times of the day Specimen Anatomical Collection Method Collection Time Receive d Time (Source) Location / / Volume Laterality Blood specimen 07/05/2017 10:05 7 (specimen) PM EST 10:05 PM EST Daphne Shahid MD POINT OF CARE TEST ORDERABLE S Performing Organization Address City/State/[place] [address] (ABNORMAL) POCT Glucose (07/05/2017 9:02 PM EST) P athologist Signature POC Glucose 301 (H) 65 - 199 [place] mg/dL [facility] LABORATORY Comment: Supplemental ranges: <140 mg/dL [...] e Number [facility] [address] XR Chest PA or [...] 474 ms MUSE SYSTEM (Bezet) Calculated P Dumont 50 degrees MUSE SYSTEM Calculated R Dumont -28 degrees MUSE SYSTEM Calculated T Dumont 90 degrees MUSE SYSTEM INTERPRETATION Sinus tachycardia [...] (ABNORMAL) Differential, Automated (07/05/2017 8:20 PM EST) [facility] gist Method Time Signature Neutrophils % 88.4 % [facility] LABORATORY Neutr Abs (ANC) 9.08 (H) 1.70 - [facility] 6.10 [facility] x10(3)/[facility] L LABORATORY Lymphocytes % 7.0 % [facility] LABORATORY Lymphocytes Abs 0.7 (L) 0.9 - 3.2 [facility] x10(3)/[facility] LABORATORY Monocytes % 3.7 % [facility] LABORATORY Monocyte Abs 0.4 0.3 - 0.9 [facility] x10(3)/[facility] LABORATORY Eosinophils % 0.1 % [facility] LABORATORY Eosinophils Abs 0.0 0.0 - 0.4 [facility] x10(3)/[facility] LABORATORY Basophils % 0.2 % [facility] LABORATORY Basophils Abs 0.0 0.0 - 0.1 [facility] x10(3)/[facility] LABORATORY Immature Gran % 0.60 % [...] City/State/[place] [address] (ABNORMAL) Hemogram (07/05/2017 8:20 PM EST) Analysis Performed At Patho logist Time Signature WBC 10.3 (H) 4.0 - 9.5 [facility] x10(3)/[facility] LABORATORY RBC 4.64 4.58 - [facility] 5.54 [facility] x10(6)/[facility] LABORATORY Hemoglobin 14.1 13.7 - [facility] 16.5 gm/dL [facility] LABORATORY Hematocrit 40.8 40.5 - [place] 48.5 % [facility] LABORATORY MCV 87.9 82.9 - [facility] 93.1 [facility] LABORATORY MCH 30.4 27.5 - [place] [facility] 32.1 pg [facility] LABORATORY MCHC 34.6 32.0 - [facility] 35.7 gm/dL [facility] LABORATORY Platelets 204 145 - 357 [facility] x10(3)/[facility] LABORATORY RDWSD 46.1 (H) 36.0 - [place] 45.0 [facility] LABORATORY RDWCV 14.5 (H) 11.4 - [facility] 13.8 % [facility] LABORATORY MPV 9.7 7.6 - 12.9 [facility] LABORATORY nRBC % Auto 0.0 % [facility] LABORATORY nRBC Abs Auto 0.000 0.000 - [place] [facility] 0.000 [facility] x10(3)/[facility] LABORATORY Specimen Anatomical Collection Method Collection Time Receive d Time (Source) Location / / Volume Laterality Blood specimen 07/05/2017 8:20 PM 017 8:27 (specimen) EST PM EST Resulting Agency Comment Spec In Lab Daphne Shahid MD HEMATOLOGY ORDERABLES Performing Organization Address City/[facility]/ZIP Code Phon e Number [address] APTT (07/05/2017 8:20 PM [...] ORDERABLES Performing Organization Address City/[facility]/ZIP [facility] [place] [address] (ABNORMAL) Cardiac Enzymes (LEB/CGP) (07/05/2017 8:20 PM EST) P athologist Signature Troponin-T 2.11 (H) 0.00 - [facility] 0.00 ng/mL [facility] LABORATORY Comment: The 99th percentile for [...] additional sample may be indicated. Reference: Third [place] Definition of Myocardial Infarction. Journal of the [place] College of Cardiology 2012;60:1581-98 CK, Total 149 0 - 200 unit/L [facility] LABORATORY Specimen Anatomical Collection Method Collection Time Receive d Time (Source) Location / / Volume Laterality Blood specimen 07/05/2017 8:20 PM 017 8:27 (specimen) EST PM EST Resulting Agency Comment Spec In Lab Daphne Shahid MD CHEMISTRY ORDERABLES Performing Organization Address City/[facility]/[place] [address] (ABNORMAL) Magnesium (07/05/2017 8:20 PM EST) P athologist Signature Magnesium 0.68 (L) 0.69 - 1.07 [facility] mmol/L [facility] LABORATORY Specimen Anatomical Collection Method Collection Time Receive d Time (Source) Location / / Volume Laterality Blood specimen 07/05/2017 8:20 PM 017 8:27 (specimen) EST PM EST Resulting Agency Comment Spec In Lab Daphne Shahid MD CHEMISTRY ORDERABLES Performing Organization Address City/State/[place] [address] (ABNORMAL) Basic Metabolic Panel (non-fasting) (07/05/2017 8:20 PM EST) athologist Signature Glucose Lvl 321 (H) 65 - 199 [facility] mg/dL [facility] [...] or in patients with acute kidney failure. http://SCI Marketview.OpenGov/DHnkdep http://Hopscot.ch/DHMCnkf Specimen Anatomical Collection Method Collection Time Receive d Time (Source) Location / / Volume Laterality Blood specimen 07/05/2017 8:20 PM 017 8:27 (specimen) EST PM EST Resulting Agency Comment Spec In Lab Daphne Shahid MD CHEMISTRY ORDERABLES Performing Organization Address City/State/[place] [address] (ABNORMAL) POCT Glucose (07/05/2017 7:32 PM EST) athologist Signature POC Glucose 296 (H) 65 - 199 [facility] mg/dL [facility] LABORATORY Comment: Supplemental ranges: <140 mg/dL before meals <180 mg/dL all other times of the day Specimen Anatomical Collection Method Collection Time Receive d Time (Source) Location / / Volume Laterality Blood specimen 07/05/2017 7:32 PM 017 7:32 (specimen) EST PM EST Daphne Shahid MD POINT OF CARE TEST ORDERABLE S Performing Organization Address City/State/ZIP Code [place] [address] CARDIAC CATHETERIZATION (07/05/2017 6:47 PM EST) Anatomical Region Laterality Modality Other Specimen (Source) Anatomical Location Collection Method / Collectio n Time Received Time / Laterality Volume Narrative 07/05/2017 7:27 PM EST ?[facility] ? Cardiac Cathete rization/Intervention Report ? Patient Name: Natalya, Gregory ? Procedure Date: 07/05/2017 ? A #: [id number] ? Primary Physician: Clarisa, Jet T ? Case #: [id number] ? File Name: [id number] ? Catheterization Order Number: [id number] ? [facility] ? Final Report [place], [place] ? Patient Name: ? Gregory Natalya ?ID#: ?[id number] ? : ?1945 ? Procedure Date: ? [...] presented with: non -STEMI (w/i 7 days). [place] ?Cardiovascular Society angina c lass was IV. [...] site angio graphy and IABP insertion in supervisor laboratory. ? Jet Mckenna, M.D. ? Electronically Signed by: Jet Sampson DeVrizack s, M.D. ? Report Finalized: 07/05/2017 ??19:23 ? Report Last Ammended: 10/26/2017 ??10:29 ? Procedure Note Jet Mckenna MD - 10/26/2017Formatt ing of this note might be different from the original. [facility] Cardiac Catheterization/Intervention Re port Patient Name: Gregory Hoang Procedure Date: 07/05/2017 A #: [id number] Primary Physician: Jet Mckenna Case #: [id number] File Name: [id number] Catheterization Order Number: [id number] [facility] Agency [facility] Final Report [place], [place] Patient Name: Gregory Hoang ID#: [id number] : 1945 Procedure Date: July 05, [...] presented with: non-STEMI ( w/i 7 days). [place] [employer] angina class was IV. No [...] site angiograph y and IABP insertion in supervisor laboratory. Jet Mckenna M.D. Electronically Signed by: Jet [...] E ? (Age): 1945(72y) Med Rec#: ? [id number] ?Sex: ?M ? Site Loc: ? [facility] ?Ht / Wt: ??173(cm)/86(kg) Pt. Loc: ?[facility] ? BSA: ?2 Study Date: ?? 07/05/2017 ?Pt. Type: Inpatient Tape: ? Referring: Daphne Shahid ([id number]) Referring: MANDA ALCANTAR Reading: Blade Preston ([id number]) Pantograph I Engraver: Dayami Paula BA, [facility] Diagnosis: *ICD-10-PCS [...] E-wave Vmax ?0.8 ?m/sec ? MV deceleration vsrb768 ?msec ? MV A-wave Vmax ?0.8 ?m/sec [...] ? Mid-Inferior ?Akinetic ? Mid-Inferoseptal ?Hypokinetic ? Chandler-Septal ? Akinetic ? Chandler-Anterior ? Hypokinetic ? Chandler-Lateral ?Hypokinetic ? Chandler-Inferior ? Akinetic ? Chandler-Tip ?Akinetic ? This report has been electronically sign ed by: _ Blade Preston MD ? 07/06/2017 08 :53:15 Images reviewed and interpretation verif ied [facility] Cardiac Ultrasound Laboratory Procedure Note Blade Preston MD - 07/06/2017Formatt ing of this note might be different from the original. Procedure: Transthoracic Echocardiogram Patient: NATALYA MCBRIDE(Age): [birth year]72y) Med Rec#: [id number] Sex: M Site Loc: [facility] Ht / Wt: 173(cm)/86(kg) Pt. Loc: U BSA: 2 Study Date: 07/05/2017 Pt. Type: Inpatie nt Tape: Referring: Daphne Shahid ([id number]) Referring: MANDA ALCANTAR Reading: Blade Preston ([id number]) Pantograph I Engraver: Dayami Paula BA, [facility] Diagnosis: *ICD-10-PCS [...] endocardial definition. Excess contrast was discarde dMadiha Garay 2D Value Units (Range) IVSd (2D) 0.9 [...] MV E-wave Vmax 0.8 m/sec MV deceleration spak054 msec MV A-wave Vmax 0.8 m/sec MV [...] Hypokinetic Mid-Posterolateral Hypokinetic Mid-Inferior Akinetic Mid-Inferoseptal Hypokinetic Chandler-Septal Akinetic Chandler-Anterior Hypokinetic Chandler-Lateral Hypokinetic Chandler-Inferior Akinetic Chandler-Tip Akinetic This report has been electronically sign ed by: _ Blade Preston MD 07/06/2017 08:53:15 Images reviewed and interpretation verif ied [facility] Cardiac Ultrasound Laboratory Daphne Shahid MD ECHO ORDERABLES Differential, Automated (07/05/2017 4:55 PM EST) athologist Signature Neutrophils % 77.0 % [facility] LABORATORY Neutr Abs (ANC) 5.26 1.70 - [facility] 6.10 [facility] x10(3)[facility] Lymphocytes % 13.3 % [facility] Lymphocytes Abs 0.9 0.9 - 3.2 [facility] x10(3)/[facility] LABORATORY Monocytes % 8.2 % [facility] Monocyte Abs 0.6 0.3 - 0.9 [facility] x10(3)/[facility] LABORATORY Eosinophils % 0.7 % [facility] Eosinophils Abs 0.0 0.0 - 0.4 [facility] x10(3)[facility] LABORATORY Basophils % 0.4 % [facility] Basophils Abs 0.0 0.0 - 0.1 [facility] x10(3)/[facility] LABORATORY Immature Gran % 0.40 % [facility] Comment: Immature granulocytes(IG's)percentage an d absolute count will include metamyelocytes, myelocytes, and promyelo cytes. Blood smears from CBCs yielding IG's will be scanned manually for concor dance. If this scan disagrees with the automated IG or if promyelocytes are not ed, a manual differential will be performed. Melisa Gran Abs 0.03 0.00 - 0.04 x10(3)/[facility] LABORATORY Specimen Anatomical Collection Method Collection Time Receive d Time (Source) Location / / Volume Laterality Blood specimen 07/05/2017 4:55 PM 017 5:24 (specimen) EST PM EST Resulting Agency Comment Spec In Lab Daphne Shahid MD HEMATOLOGY ORDERABLES Performing Organization Address City/State/[place] [address] (ABNORMAL) Hemogram (07/05/2017 4:55 PM EST) Analysis Performed At Patho logist Time Signature WBC 6.8 4.0 - 9.5 [facility] x10(3)/[facility] LABORATORY RBC 4.67 4.58 - [place] RYAN 5.54 [facility] x10(6)/[facility] LABORATORY Hemoglobin 14.0 13.7 - [facility] 16.5 gm/dL [facility] LABORATORY Hematocrit 41.0 40.5 - [facility] 48.5 % [facility] LABORATORY MCV 87.8 82.9 - [facility] 93.1 [facility] LABORATORY MCH 30.0 27.5 - [place] R[facility] 32.1 pg [facility] LABORATORY MCHC 34.1 32.0 - [place] RYAN 35.7 gm/dL [facility] LABORATORY Platelets 197 145 - 357 [facility] x[facility](3[facility] LABORATORY RDWSD 46.4 (H) 36.0 - [facility] 45.0 [facility] LABORATORY RDWCV 14.5 (H) 11.4 - [facility] 13.8 % [facility] LABORATORY MPV 9.7 7.6 - 12.9 [facility] nRBC % Auto 0.0 % [facility] LABORATORY nRBC Abs Auto 0.000 0.000 - [facility] 0.000 [facility] x10(3)/[facility] LABORATORY Specimen Anatomical Collection Method Collection Time Receive d Time (Source) Location / / Volume Laterality Blood specimen 07/05/2017 4:55 PM 017 5:24 (specimen) EST PM EST Resulting Agency Comment Spec In Lab Daphne Shahid MD HEMATOLOGY ORDERABLES Performing Organization Address City/State/[place] [address] (ABNORMAL) Cardiac Enzymes (LEB/CGP) (07/05/2017 4:55 PM EST) P athologist Signature Troponin-T 1.69 (H) 0.00 - [place] 0.00 ng/mL [facility] LABORATORY Comment: The 99th percentile for [...] additional sample may be indicated. Reference: Third [place] Definition of Myocardial Infarction. Journal of the [place] [employer] 2012;60:1581-98 CK, Total 191 0 - 200 unit/L [facility] LABORATORY Specimen Anatomical Collection Method Collection Time Receive d Time (Source) Location / / Volume Laterality Blood specimen 07/05/2017 4:55 PM 017 5:56 (specimen) EST PM EST Resulting Agency Comment Spec In Lab Daphne Shahid MD CHEMISTRY ORDERABLES Performing Organization Address City/State/ZIP Code Phon e Number [place] [id number] HOS[address] LAB[address]ORY Drive (ABNORMAL) pro-Brain Natriuretic Peptide (07/05/2017 4:55 PM EST) P athologist Signature ProBNP 1,598 (H) <=125 [facility] pg/mL [facility] LABORATORY Specimen Anatomical Collection Method Collection Time Receive d Time (Source) Location / / Volume Laterality Blood specimen 07/05/2017 4:55 PM 017 5:24 (specimen) EST PM EST Resulting Agency Comment Spec In Lab Daphne Shahid MD CHEMISTRY ORDERABLES Performing Organization Address City/State/ZIP Code Phon e Number [address] Magnesium (07/05/2017 4:55 PM EST) P athologist Signature Magnesium 0.78 0.69 - 1.07 [facility] mmol/L [facility] [facility] Specimen Anatomical Collection Method Collection Time Receive d Time (Source) Location / / Volume Laterality Blood specimen 07/05/2017 4:55 PM 017 5:24 (specimen) EST PM EST Resulting Agency Comment Spec In Lab Daphne Shahid MD CHEMISTRY ORDERABLES Performing Organization Address City/[facility]/[place] [address] (ABNORMAL) Basic Metabolic Panel (non-fasting) (07/05/2017 4:55 PM EST) P athologist Signature Glucose Lvl 230 (H) 65 - 199 [facility] mg/dL [facility] [...] or in patients with acute kidney failure. [email or web address] Specimen Anatomical Collection Method Collection Time Receive d Time (Source) Location / / Volume Laterality Blood specimen 07/05/2017 4:55 PM 017 5:24 (specimen) EST PM EST Resulting Agency Comment Spec In Lab Daphne Shahid MD CHEMISTRY ORDERABLES Performing Organization Address City/[facility] Code Phon e Number [address] (ABNORMAL) APTT (07/05/2017 4:55 [...] HEMATOLOGY ORDERABLES Performing Organization Address City/[facility] [place] [address] (ABNORMAL) POCT Glucose (07/05/2017 4:53 PM EST) P athologist Signature POC Glucose 208 (H) 65 - 199 [facility] mg/dL [facility] Comment: Supplemental ranges: <140 mg/dL before meals <180 mg/dL all other times of the day Specimen Anatomical Collection Method Collection Time Receive d Time (Source) Location / / Volume Laterality Blood specimen 07/05/2017 4:53 PM 017 4:53 (specimen) EST PM EST Daphne Shahid MD POINT OF CARE TEST ORDERABLE S Performing Organization Address City/State/ZIP Code Phon e Number [place] [phone]OS[address] LAB[address] EKG 12 Lead (07/05/2017 4:32 PM EST) Component Value Ref Range Test Analysis Performed Pathologis t Method Time At Signature Ventricular rate 97 BPM MUSE SYSTEM Atrial Rate 97 BPM MUSE SYSTEM P-R Interval 148 ms MUSE SYSTEM QRS Duration 96 ms MUSE SYSTEM Q-T Interval 364 ms MUSE SYSTEM QTC Calculated 462 ms MUSE SYSTEM (Bezet) Calculated P [place] 48 degrees MUSE SYSTEM Calculated R [place] -33 degrees MUSE SYSTEM Calculated T [place] 98 degrees MUSE SYSTEM INTERPRETATION Normal sinus [...] of unspecified type of vessel, [place] or graft Cardiomyopathy, ischemic Other specified [...] in dextrose 5% 250 mL EST infusion (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
Routine documented in this encounter Care Teams Professor Of Political Science Relationship Specialty Start Date End Date Lovely Vicente MD PCP - General 04/16/[address] [place] [address] [address] [place] [address] documented as of this encounter
--- OUTSIDE RECORDS SUMMARY | 2022-04-15 08:26 | XMS_ITS | Encounter Summary ---
:1945 Author Organization [facility] [place] [address] Care Team Providers Name Role Phone Lovely Vicente MD Primary Care Provider Encounter Details Date Type Department Care Team Description 11/28/2016 Telephone Dermatology at [facility] Rigoberto Garcia III, [address] [place] [address] [facility] [phone] [facility] SIMÓN-DERMAT [place], [place] [address] (Wo rk) Social History Tobacco [...] provider. Rigoberto Garcia MD Section of Dermatology [facility] documented in this encounter Plan of Treatment Upcoming Encounters Date Type Specialty Care Team Description 05/28/2022 Appointment Cardiology Zulma Dolan MD [facility] [address] [place], [place] [address] (Wo rk) 05/28/2022 Laboratory Appointment Lab 05/28/2022 Office Visit Cardiology Zulma Dolan MD [facility] [address] Liz Poole PA [facility] [place] [address] 06/10/2022 Office Visit Dermatology Laura Scherer MD [facility] DR TEJA MARIE-DERMAT [place], [place] [address] (Wo rk) documented as of this encounter Visit Diagnoses Not on filedocumented in this encounter Care Teams Patient Accounts Coordinator Relationship Specialty Start Date End Date Lovely Vicente MD PCP - General 04/16/[address] [place] [address] documented as of this encounter
--- OUTSIDE RECORDS SUMMARY | 2022-04-15 08:26 | XMS_ITS | Encounter Summary ---
:1945 Author Organization [facility] [place] [address] Care Team Providers Name Role Phone Lovely Vicente MD Primary Care Provider Reason for Visit Reason Comments Follow-up Encounter Details Date Type Department Care Team Description 06/03/2017 Office Visit Dermatology at Rigoberto Forman benign nevi; Abdelrahman HOOPER MD History of melanoma; [address] [facility] History of dysplastic nevus; [place] [address] Skin exam for malignant neoplasm [phone] [facility]-DERMATOLGY [place], [place] [address] Social History Tobacco Use Types [...] encounter. Rigoberto Garcia MD Section of Dermatology [facility] documented in this encounter Plan of Treatment Upcoming Encounters Date Type Specialty Care Team Description 05/28/2022 Appointment Cardiology Zulma Dolan MD [facility] [place], [place] [address] (Wo rk) 05/28/2022 Laboratory Appointment Lab 05/28/2022 Office Visit Cardiology Zulma Dolan MD [facility] [place] [address] Liz Poole PA [facility] [place] [address] 06/10/2022 Office Visit Dermatology Laura Scherer MD [facility] DR [address]-DERMAT [place], [place] [address] (Wo rk) documented as [...] skin documented in this encounter Care Teams Customer Supply Chain Analyst Relationship Specialty Start Date End Date Lovely Vicente MD PCP - General 04/16/15 [facility] [address] [place] [address] documented as of this encounter
--- OUTSIDE RECORDS SUMMARY | 2022-04-15 08:26 | XMS_ITS | Encounter Summary ---
:1945 Author Organization [facility] [place] [address] Care Team Providers Name Role Phone Lovely Vicente MD Primary Care Provider Reason for Visit Reason Comments Nevus excision dysplastic nevus mi d upper abdomen Encounter Details Date Type Department Care Team Description 12/03/2016 Procedure visit Dermatology at Halima Dubois Dysplastic nevus of Road MD Adrián trunk [address] [facility] [address] [facility] [phone] [address]-DERMATOLGY [place] [address] Social History Tobacco Use Types Packs/Day Years [...] Halima Cordero MD during the day at [phone] Nurse: Mira [phone] Amy After 5 PM and on weekends, please call the hospital number , and ask for the Recoater long term care administrator. documented in this encounter Progress Notes Halima Cordero MD - 12/10/2016 5:41 PM EDT Gwendolyn, Excision shows scar, there is no residual of the severely dysplastic nevus. Please notify patient and check on wound healing. Thank you, DTB Halima Cordero MD - 12/03/2016 3:00 PM EDT Images from the original note were not included. Dermatology Procedure note: Attending: Halima Cordero MD Shredding Machine Operator: Mira James LPN Referring MD: Rigoberto [...] to call the clinic or the on-call assistant credit manager over the weekend. ??? Name of [...] Zulma Dolan MD [facility] [place], [place] [address] (Wo rk) 05/28/2022 Laboratory Appointment Lab 05/28/2022 Office Visit Cardiology Zulma Dolan MD [facility] [place] [address] Liz Poole PA [facility] [place] [address] 06/10/2022 Office Visit Dermatology Laura Scherer MD [facility] DR TEJA RG-DERMAT [place], [place] [address] (Wo rk) documented as of [...] [facility] Method Time Signature Surgical [id number] ?Location: Critical access hospital The signing pathologist has (i) examined the [...] Clinical Diagnosis: Dysplastic nevus, see previous pathology [id number] SPECIMEN PROCESSING A - Labeled/Fixative: Mid-upper abdomen, [...] Organization Address City/State/[place] [address] Specimen to Pathology (NON-OR) [...] Organization Address City/State/[place] [address] documented in this encounter Visit Diagnoses Diagnosis Dysplastic nevus of trunk Benign neoplasm of skin of trunk, except scrotum documented in this encounter Care Teams Neurological Surgeon Relationship Specialty Start Date End Date Lovely Vicente MD PCP - General 04/16/[address] [place] [address] documented as of this encounter
--- OUTSIDE RECORDS SUMMARY | 2022-04-15 08:26 | XMS_ITS | Encounter Summary ---
:1945 Author Organization [facility] Address [facility] [address] Care Team Providers Name Role Phone Lovely Vicente MD Primary Care Provider Reason for Visit Reason Comments Skin Check Encounter Details Date Type Department Care Team Description 11/05/2015 Office Visit Dermatology at Rigoberto Forman benign nevi; Abdelrahman HOOPER MD Lentigines; [address] [facility] History of melanoma; [place] [address] Skin exam for malignant neoplasm [phone] [facility]-DERMATOLGY [place], [place] [address] Social History Tobacco Use Types [...] (ACCU-CHEK COMPACT TEST) Strip by [facility]Non- Drug; Combo Route) route 2 times daily. [...] the presence of Dr. Garcia.: GINNY CHRISTIANSEN BOOKING POLICE OFFICER and Judit Cruz, Clinical Scribe I performed the above scribed service and agree with the accuracy of the documentation in this encounter. Rigoberto Garcia MD Section of Dermatology [facility] documented in this encounter Plan of Treatment Upcoming Encounters Date Type Specialty Care Team Description 05/28/2022 Appointment Cardiology Zulma Dolan MD [facility] [address] [place], [place] [address] (Wo rk) 05/28/2022 Laboratory Appointment Lab 05/28/2022 Office Visit Cardiology Zulma Dolan MD [facility] [place] [address] Liz Poole PA [facility] [place] [address] 06/10/2022 Office Visit Dermatology Laura Scherer MD [facility] DR TEJA GR-DERMAT [place], [place] [address] (Wo rk) documented as of this encounter Visit Diagnoses Diagnosis Multiple benign nevi Benign neoplasm of skin, site unspecifie d Lentigines Other dyschromia History of melanoma Personal history of malignant melanoma o f skin Skin exam for malignant neoplasm Screening for malignant neoplasm of the skin documented in this encounter Care Teams Linux Server Engineer Relationship Specialty Start Date End Date Lovely Vicente MD PCP - General 04/16/15 [facility] [address] [place] [address] (work) documented as of this encounter
--- OUTSIDE RECORDS SUMMARY | 2022-04-15 08:26 | XMS_ITS | Encounter Summary ---
:1945 Author Organization [facility] [place] [address] Care Team Providers Name Role Phone Lovely Vicente MD Primary Care Provider Reason for Visit Reason Onset Date Comments Medication Refill 06/19/2016 Encounter Details Date Type Department Care Team Description 06/19/2016 Refill End[facility]ology at [facility] Luz Stallings MD [facility] [place] [address] ENDOCRINOLOGY DEPT [phone] [place], [place] [address] (Wo rk) Social History Tobacco [...] [facility] er Dr [place] [address] (Wo rk) 05/28/2022 Laboratory Appointment Lab 05/28/2022 Office Visit Cardiology Zulma Dolan MD [facility] [place] [address] Liz Poole PA [facility] [place] [address] 06/10/2022 Office Visit Dermatology Laura Scherer MD [facility] DR TEJA GR-DERMAT [place], [place] [address] (Wo rk) documented as of this encounter Visit Diagnoses Not on filedocumented in this encounter Care Teams Enrobing Machine Corder Relationship Specialty Start Date End Date Lovely Vicente MD PCP - General 04/16/[address] [place], [place] [address] documented as of this encounter
--- OUTSIDE RECORDS SUMMARY | 2022-04-15 08:26 | XMS_ITS | Encounter Summary ---
:1945 Author Organization [facility] [place] [address] Care Team Providers Name Role Phone Lovely Vicente MD Primary Care Provider Reason for Visit Reason Comments Skin Check Encounter Details Date Type Department Care Team Description 06/05/2016 Office Visit Dermatology at Rigoberto Forman istory of melanoma; Abdelrahman HOOPER MD Seborrheic keratosis; [address] [facility] [place] (actinic keratosis); [place] [address] Multiple nevi; [phone] [facility] [address]-DERMATOLGY [place], [place] [address] Social History Tobacco Use Types [...] Diagnostic, Drum (ACCU-CHEK COMPACT TEST) Strip by [facility].(Non- Drug; Combo Route) route 2 [...] and in the presence of Dr. Garcia.: GINYN CHRISTIANSEN LPN I performed the above scribed service and agree with the accuracy of the documentation in this encounter. Rigoberto Garcia MD Section of Dermatology [facility] documented in this encounter Plan of Treatment Upcoming Encounters Date Type Specialty Care Team Description 05/28/2022 Appointment Cardiology Zulma Dolan MD [facility] [place], [place] [address] (Wo rk) 05/28/2022 Laboratory Appointment Lab 05/28/2022 Office Visit Cardiology Zulma Dolan MD [facility] [place] [address] Liz Poole PA [facility] [place] [address] 06/10/2022 Office Visit Dermatology Laura Scherer MD [facility] DR TE[address] GR-DERMAT [place], [place] [address] (Wo rk) documented as of this encounter Visit Diagnoses Diagnosis History of melanoma Personal history of malignant melanoma o f skin Seborrheic keratosis Other seborrheic keratosis [place] (actinic keratosis) Actinic keratosis Multiple nevi Benign neoplasm of skin, site unspecifie d Scar Scar condition and fibrosis of skin documented in this encounter Care Teams Compliance Advisor Relationship Specialty Start Date End Date Lovely Vicente MD PCP - General 04/16/[address] [place] [address] documented as of this encounter
--- OUTSIDE RECORDS SUMMARY | 2022-04-15 08:27 | XMS_ITS | Encounter Summary ---
:1945 Author Organization [facility] [place] [address] Care Team Providers Name Role Phone NeilSom conner STACIE Primary Care Provider Reason for Visit Reason Comments Establish Care OBST GOITER Encounter Details Date Type Department Care Team Description 01/25/2013 Office Visit General Surgery at Manny Mcknight er colloid, toxic, [facility] MD Eliseo nodular (Primary Dx) [facility] [place] GENERAL SURGERY [address] [place], [place] [address] [phone] Social History Tobacco Use Types Packs/Day Years [...] the thyroid gland were obtained using a [employer] MicroMaxx and an HFL38/13-6 broadband linear array [...] on physical exam. ROS: No H/O asthma, [place], stroke, pulmonary embolus or phlebitis. Comprehensive review [...] agrees to proceed. Will sign in through [facility]. Consent is signed. Send copy to Dr. SOM HOLLIDAY APRN and Elijah Elias MD. documented in this encounter Plan of Treatment Upcoming Encounters Date Type Specialty Care Team Description 05/28/2022 Appointment Cardiology Zulma Dolan MD [facility] [address] [place] [address] (Wo rk) 05/28/2022 Laboratory Appointment Lab 05/28/2022 Office Visit Cardiology Zulma Dolan [place] [address] Liz Poole PA [facility] [place] [address] 06/10/2022 Office Visit Dermatology Laura Scherer MD [facility] DR TE[address] GR-DERMAT [place], [place] [address] (Wo rk) documented as [...] 406 ms MUSE SYSTEM (Bezet) Calculated P [place] 52 degrees MUSE SYSTEM Calculated R [place] 0 degrees MUSE SYSTEM Calculated T [place] 40 degrees MUSE SYSTEM INTERPRETATION Normal sinus [...] storm documented in this encounter Care Teams Environmental Safety Specialist Relationship Specialty Start Date End Date Som Holliday APRN PCP - General 01/25/13 04/15/[address] [place] [address] documented as of this encounter
--- OUTSIDE RECORDS SUMMARY | 2022-04-15 08:27 | XMS_ITS | Encounter Summary ---
:1945 Author Organization [facility] [place] [address] Care Team Providers Name Role Phone Angela Holliday APRN Primary Care Provider Encounter Details Date Type Department Care Team Description 03/30/2013 Telephone General Surgery at [facility] Cliff Nevarez, [place] [address] Social History Tobacco Use Types Packs/Day [...] Dolan MD [facility] [address] [place], [place] [address] (Wo rk) 05/28/2022 Laboratory Appointment Lab 05/28/2022 Office Visit Cardiology Zulma Dolan MD [facility] [place] [address] Liz Poole PA [facility] [place] [address] 06/10/2022 Office Visit Dermatology Laura Scherer MD [facility] [address] TE[address] GR-DERMAT [place], [place] [address] (Wo rk) documented as of this encounter Visit Diagnoses Not on filedocumented in this encounter Care Teams Bankruptcy Law Specialist Relationship Specialty Start Date End Date Angela Holliday APRN PCP - General 01/25/13 04/15/[address] [place] [address] documented as of this encounter
--- OUTSIDE RECORDS SUMMARY | 2022-04-15 08:27 | XMS_ITS | Encounter Summary ---
:1945 Author Organization [facility] [place] [address] Care Team Providers Name Role Phone Angela Sotelo APRN Primary Care Provider Encounter Details Date Type Department Care Team Description 01/16/[address] [facility] Nohemi Jaimes, COLONOSCOPY, [facility] Jorge mcnamara MD [place], [place] [address] [facility]ARE ([facility] [phone] DR [place]) GASTROENTEROLOGY DEPT. [place], [place] [address] Social History Tobacco [...] you need to be checked. [facility] [phone] 8a-5p Same Day Endo [phone] 7a-8p Otherwise contact [phone] and ask to speak to the rose grading supervisor insulation foreman Follow up care is a shelton part [...] Jaimes MD - 01/16/2014 9:[address] [facility] Operative Note Patient Name: Gregory Fatima : [id number] MR#: [id number] Case Date: 01/16/2014 Surgeon: Surgeon(s) and Role: * Nohemi Jaimes MD - Primary Preoperative diagnosis: 5 yr surv. Full procedure note is documented under the Procedure section of eDH. documented in this encounter Plan of Treatment Upcoming Encounters Date Type Specialty Care Team Description 05/28/2022 Appointment Cardiology Zulma Dolan MD [facility] [address] [place] [address] (Wo rk) 05/28/2022 Laboratory Appointment Lab 05/28/2022 Office Visit Cardiology Zulma Dolan MD [facility] [place] [address] Liz Poole PA [facility] [place] [address] 06/10/2022 Office Visit Dermatology Laura Scherer MD [facility] DR [address] [place] [address] (Wo rk) documented as of this encounter [...] Surgical Pathology Report (01/16/2014 9:53 AM EDT) [facility] Method Time Signature Surgical CERNER Pathology ? [facility] Report ? Provider: ?? SHREE, NOHEMI Gonzalez ?Pt. Name: ?? MALICKA RT, GREGORY E ? Acc #: ?[id number] ?Pt. MRN: ?[id number] ? Col Date: ?? 4 ? /Sex: [...] City/State/ZIP Code Phon e Number [place] [phone] HOSPITAL LABORATORY [address] RAKESH WALKER Specimen to [...] [facility]/[place] [address] CERNER MILLENNIUM Specimen to [...] MD PATHOLOGY/CYTOLOGY ORDERABLE S Performing Organization Address [facility] [place] [address] CERNER MILLENNIUM COLONOSCOPY (01/16/2014 7:25 AM EDT) [facility] gist Method Time Signature COLONOSCOPY [facility] PROVATION Endoscopy Patient Name: Gregory Fatima ? Procedure Date: 01/16/2014 7:25 AM ? N: [id number] ? Date of : 1945 ? Age: 68 ? Order #: [id number] ? Procedure: ? Colonoscopy Indications: ? High [...] Laterality 01/16/2014 7:25 AM EDT Angela Sotelo FABRIC INSPECTOR GENERAL SURGICAL ORDERABLES Performing Organization Address City/State/ZIP [...] documented in this encounter Care Teams Radio Sportscaster Relationship Specialty Start Date End Date Angela Sotelo APRN PCP - General 01/25/13 04/15/[address] [place] [address] documented as of this encounter
--- OUTSIDE RECORDS SUMMARY | 2022-04-15 08:27 | XMS_ITS | Encounter Summary ---
:1945 Author Organization [facility] [place] [address] Care Team Providers Name Role Phone MiyaLokeshAngela STACIE Primary Care Provider Reason for Visit Reason Onset Date Comments Post-op Problem 04/05/2013 voiding trial Encounter Details Date Type Department Care Team Description 04/05/2013 Telephone [facility]rology at [facility] Blade Smith, Post-op Problem [facility] (voiding trial) [place] [address] UROLOGY DEPT [place] [address] (Wo rk) Social History Tobacco Use Types [...] Dolan MD [facility] [address] [place], [place] [address] (Wo rk) 05/28/2022 Laboratory Appointment Lab 05/28/2022 Office Visit Cardiology Zulma Dolan MD [facility] [place] [address] Liz Poole PA [facility] [place] [address] 06/10/2022 Office Visit Dermatology Laura Scherer MD [facility] DR TE[address] GR-DERMAT [place], [place] [address] (Wo rk) documented as of this encounter Visit Diagnoses Not on filedocumented in this encounter Care Teams Baker Bread Relationship Specialty Start Date End Date Angela Holliday APRN PCP - General 01/25/13 04/15/[address] [place] [address] documented as of this encounter
--- OUTSIDE RECORDS SUMMARY | 2022-04-15 08:27 | XMS_ITS | Encounter Summary ---
:1945 Author Organization [facility] [place] [address] Care Team Providers Name Role Phone MiyaAngela STACIE Primary Care Provider Reason for Visit Reason Comments Urinary Retention Encounter Details Date Type Department Care Team Description 05/16/2013 Follow-Up Urology at [facility] Blade Smith, Retention of urine [facility] (Primary Dx) [place] [address] UROLOGY DEPT [place] [address] (Wo rk) Social History Tobacco Use Types [...] Dolan MD [facility] [address] [place], [place] [address] (Wo rk) 05/28/2022 Laboratory Appointment Lab 05/28/2022 Office Visit Cardiology Zulma Dolan MD [facility] [place] [address] Liz Poole PA [facility] [place] [address] 06/10/2022 Office Visit Dermatology Laura Scherer MD [facility] [address] GR-DERMAT [place], [place] [address] (Wo rk) documented as of this encounter Visit Diagnoses Diagnosis 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
--- OUTSIDE RECORDS SUMMARY | 2022-04-15 08:27 | XMS_ITS | Encounter Summary ---
:1945 Author Organization [facility] [place] [address] Care Team Providers Name Role Phone Angela Holliday STACIE Primary Care Provider Encounter Details Date Type Department Care Team Description 04/04/2013 Telephone Urology at [facility] Parker Sanchez [place] [facility] [place] [address] UROLOGY DEPT [phone] [place], [place] [address] (Wo rk) Social History Tobacco [...] Dolan MD [facility] Dr [place], [place] [address] (Wo rk) 05/28/2022 Laboratory Appointment Lab 05/28/2022 Office Visit Cardiology Zulma Dolan MD [facility] [place] [address] [address] Po[address] PA [facility] [place] [address] 06/10/2022 Office Visit Dermatology Laura Scherer MD [facility] [address] TEJA [address]DERMAT [place], [place] [address] (Wo rk) documented as of this encounter Visit Diagnoses Not on filedocumented in this encounter Care Teams Barn And Property Manager Relationship Specialty Start Date End Date Angela Holliday APRN PCP - General 01/25/13 04/15/[address] [place] [address] documented as of this encounter
--- OUTSIDE RECORDS SUMMARY | 2022-04-15 08:27 | XMS_ITS | Encounter Summary ---
:1945 Author Organization [facility] [place] [address] Care Team Providers Name Role Phone Brody Berrios MD Primary Care Provider Reason for Visit Reason Comments Annual Exam Encounter Details Date Type Department Care Team Description 09/22/2011 Follow-Up Dermatology Arik Tipton Psoriasis (Primary Dx); [facility] MD Jorge Personal history of other malignant neop lasm of skin Drive [place] [id number] DERMATOLOGY DEPT . 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 His only complaints tail bone and [...] changes: Arik Tipton MD Section of Dermatology [facility] documented in this encounter Plan of Treatment Upcoming Encounters Date Type Specialty Care Team Description 05/28/2022 Appointment Cardiology Zulma Doaln MD [facility] [place], [place] [address] (Wo rk) 05/28/2022 Laboratory Appointment Lab 05/28/2022 Office Visit Cardiology Zulma Dolan MD [facility] [place] [address] Liz Poole PA [facility] [place] [address] 06/10/2022 Office Visit Dermatology Laura Scherer MD [facility] [address] [place], [place] [address] (Wo rk) documented as of this encounter Visit Diagnoses Diagnosis Psoriasis - Primary Other psoriasis Personal history of other malignant neop lasm of skin documented in this encounter Care Teams Junior Bookkeeper Relationship Specialty Start Date End Date Brody Berrios MD PCP - General 09/22/11 10/03/[address] [place] [address] documented as of this encounter
--- OUTSIDE RECORDS SUMMARY | 2022-04-15 08:27 | XMS_ITS | Encounter Summary ---
:1945 Author Organization [facility] Address [facility] [place] [address] Care Team Providers Name Role Phone Unknown Primary Care Provider Unavailable Reason for Visit Reason Comments Skin Check Encounter Details Date Type Department Care Team Description 10/04/2012 Follow-Up Dermatology at Rigoberto Forman soriasis (Primary Dx); Abdelrahman HOOPER MD Neoplasm of unspecified nature of bone, soft tissue, and skin; [address] [facility] Skin lesion of chest wall; [place] [address] Seborrheic psoriasis- scalp and ingtergl uteal area [phone] [facility] [place], [place] [address] (Wo rk) Social History Tobacco [...] changes: Rigoberto Albarran MD Section of Dermatology [facility] documented in this encounter Plan of Treatment Upcoming Encounters Date Type Specialty Care Team Description 05/28/2022 Appointment Cardiology Zulma Dolan MD [facility] [place], [place] [address] (Wo rk) 05/28/2022 Laboratory Appointment Lab 05/28/2022 Office Visit Cardiology Zulma Dolan MD [facility] [place] [address] Liz Poole PA [facility] [place] [address] 06/10/2022 Office Visit Dermatology Laura Scherer MD [facility] DR TEJA [address]MAT [place], [place] [address] (Wo rk) documented as of [...] Component Value Ref Test Analysis Performed At [facility] gist Range Method Time Signature Surgical CERNER Pathology ? [facility] Satellite Report ? Provider: ?? RIGOBERTO ALBARRAN III Pt. Name: ?? DON HOANG ?A ? Acc #: ?[id number] ? Pt. ? Col Date: ?? 3 [...] [address]/ZIP Code Phon e Number [address] [facility] Specimen to Pathology (NON-OR) (10/04/2012 9:55 AM EDT) Specimen Anatomical Collection Method Collection Time Receive d Time (Source) Location / / Volume Laterality AP Specimen 10/04/2012 9:55 AM 201 3 9:56 EDT AM EDT Narrative [facility] - 10/04/2012 9:56 AM E DT Specimen requisition ordered. ??Separate Pathology report to follow Rigoberto Albarran III, MD PATHOLOGY/CYTOLOGY ORDERABLE S Performing Organization Address City/[facility] [address]/ZIP Code Phon e Number [address] [facility] documented in this encounter Visit Diagnoses Diagnosis Psoriasis - Primary Other psoriasis Neoplasm of unspecified nature of bone, soft tissue, and skin Skin lesion of chest wall Unspecified disorder of skin and subcuta neous tissue Seborrheic psoriasis- scalp and ingtergl uteal area Other psoriasis documented in this encounter Care Teams Vacuum Cleaner Repair Person Relationship Specialty Start Date End Date Unknown PCP - General 10/04/12 01/24/13 None documented as of this encounter
--- OUTSIDE RECORDS SUMMARY | 2022-04-15 08:27 | XMS_ITS | Encounter Summary ---
:1945 Author Organization [facility] [place] [address] Care Team Providers Name Role Phone MiyaLokeshAngela STACIE Primary Care Provider Encounter Details Date Type Department Care Team Description 01/16/2014 Hospital Encounter Gastroenterology at [facility] Nohemi Swann, [facility] [place] [address] [facility] [phone] [facility] [place], [place] [address] Social History Tobacco Use Types [...] you need to be checked. [facility] [phone] 8a-5p Same Day Endo [phone] 7a-8p Otherwise contact [phone] and ask to speak to the auto radio mechanic preservationist Follow up care is a [place] part [...] Swann MD - 01/16/2014 9:49 AM EDT [facility] Operative Note Patient Name: Gregory Fatima : [id number] MR#: [id number] Case Date: 01/16/2014 Surgeon: Surgeon(s) and Role: * Nohemi Swann MD - Primary Preoperative diagnosis: 5 yr surv. Full procedure note is documented under the Procedure section of eDH. documented in this encounter Plan of Treatment Upcoming Encounters Date Type Specialty Care Team Description 05/28/2022 Appointment Cardiology Zulma Dolan MD [facility] [address] [place], [place] [address] (Wo rk) 05/28/2022 Laboratory Appointment Lab 05/28/2022 Office Visit Cardiology Zulma Dolan MD [facility] [place] [address] Liz Poole PA [facility] [place] [address] 06/10/2022 Office Visit Dermatology Laura Scherer MD [facility] DR TEJA [address] [place], [place] [address] (Wo rk) documented as of this encounter [...] Report (01/16/2014 9:53 AM EDT) [facility] Method Time Signature Surgical CERNER Pathology ? [facility] Report ? Provider: ?? NOHEMI SWANN ?Pt. Name: ?? MALICKEliseo RT, GREGORY E ? Acc #: ?[id number] ?Pt. MRN: ?[id number] ? Col Date: ?? 4 ? /Sex: [...] City/State/ZIP Code Phon e Number [place] [id number] HOSPITAL LAB[address] RAKESH WALKER Specimen to [...] Address City/State/[place] [address] [facility] Specimen to Pathology (surgical or [...] [facility]/[place] [address] CERNER MILLENNIUM COLONOSCOPY (01/16/2014 7:25 AM EDT) [facility] gist Method Time Signature COLONOSCOPY [facility] Endoscopy Patient Name: Gregory Fatima ? Procedure Date: 01/16/2014 7:25 AM ? N: [id number] ? Date of : 1945 ? Age: 68 ? Order #: [id number] ? Procedure: ? Colonoscopy Indications: ? High risk colon cancer surveillance : ? 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 dm on metformin with bs ~ 110 this ? am,s/p melanoma years ago, os a, ? goiter s/p surgery, [facility] Providers: ? Nohemi Swann MD, Blanca xiong, [...] Laterality 01/16/2014 7:25 AM EDT Angela Sotelo CROP SUPERVISOR GENERAL SURGICAL ORDERABLES Performing Organization Address [...] Routine documented in this encounter Care Teams Hereditary Cancer Program Coordinator Relationship Specialty Start Date End Date Angela Sotelo APRN PCP - General 01/25/13 04/15/[address] [place] [address] documented as of this encounter
--- OUTSIDE RECORDS SUMMARY | 2022-04-15 08:27 | XMS_ITS | Encounter Summary ---
:1945 Author Organization [facility] [place] [address] Care Team Providers Name Role Phone Angela Holliday APRN Primary Care Provider Encounter Details Date Type Department Care Team Description 03/28/2013 Surgery Main Operating Room Mesha Mcknight, THYROIDECTOMY, TOTAL [facility] (WRVU 15.04) [facility] [place] [address] [place] [address] [phone] (Wo rk) Social History Tobacco Use Types [...] please call the General Surgery nurse at [phone], since this may mean that you need morecalcium. Follow-up Appointment: Will be scheduled with Dr. Mcknight in 6 weeks Date and time as well as any required labs will be mailed to you Please call [phone] to confirm date and time of your [...] by calcium supplementation. Phone number for questions: [phone] before 5 PM weekdays [phone] after 5 PM and on weekends/holidays Please follow up with Urology as per their recommendations for Bob removal AttachmentsThe following attachments cannot be sent through Care Everywhere. THYROIDECTOMY: WHAT TO EXPECT AT HOME (ARABIC)URINARY CATHETER CARE: AFTER YOUR VISIT (ARABIC)documented in this encounter Medications at Time of [...] a 68 y.o. male presents to [facility] today for total thyroidectomy. See full [...] Operative Note Patient Name: Gregory Fatima : [id number] MR#: [id number] Case Date: 03/28/2013 Surgeon: Surgeon(s) and Role: [...] was extubated and taken to the [facility] in stable condition. At the end [...] Operative Note Patient Name: Gregory Fatima : [id number] MR#: [id number] Case Date: 03/28/2013 Surgeon: Surgeon(s) and Role: [...] MD [facility] [address] [place] [address] (Wo rk) 05/28/2022 Laboratory Appointment Lab 05/28/2022 Office Visit Cardiology Zulma Dolan MD [facility] [place] [address] Liz Poole PA [facility] [place] [address] 06/10/2022 Office Visit Dermatology Laura Scherer MD [facility] DR TEJA [address] [place] [address] (Wo rk) documented as of this encounter [...] Organization Address City/State/[place] [address] CERNER MILLENNIUM (ABNORMAL) POCT [...] CARE TEST ORDERABLE S Performing Organization Address City/[facility]/[place]IP [place] [address] CERNER MILLENNIUM (ABNORMAL) POCT [...] CARE TEST ORDERABLE S Performing Organization Address City/[facility]/ZIP Code Phon e Number [address] CERNER MILLENNIUM (ABNORMAL) POCT [...] CARE TEST ORDERABLE S Performing Organization Address City/[facility]/ZIP Code Phon e Number [address] CERNER MILLENNIUM (ABNORMAL) POCT [...] CARE TEST ORDERABLE S Performing Organization Address City/[facility]/ZIP Code Phon e Number [address] CERNER MILLENNIUM (ABNORMAL) POCT [...] CARE TEST ORDERABLE S Performing Organization Address City/[facility]/ZIP Code Phon e Number [address] CERNER MILLENNIUM (ABNORMAL) POCT [...] CARE TEST ORDERABLE S Performing Organization Address City/[facility]/ZIP Code Phon e Number [address] CERNER MILLENNIUM (ABNORMAL) POCT [...] CARE TEST ORDERABLE S Performing Organization Address City/[facility]/ZIP Code Phon e Number [address] [facility] [...] City/[facility]/ZIP Code Phon e Number [address] [facility] Pathology Addendum Report (03/28/2013 12:03 PM EDT) Component Value Ref Test Analysis Performed At [facility] gist Range Method Time Signature Addendum CERNER Report ? [facility] ? Provider: ?? MESHA MCKNIGHT Pt. Name: ?? GREGORY FATIMA ? Acc #: ?[id number] ?Pt. MRN: ?[id number] ? Col Date: ?? 03/28/2013 ?/Sex: ?1945,(68 [...] Organization Address City/State/ZIP [place] [address] [facility] Surgical Pathology Report (03/28/2013 12:03 PM EDT) Component Value Ref Test Analysis Performed At [facility] gist Range Method Time Signature Surgical [facility] Pathology ? [facility] Report ? Provider: ?? MESHA MCKNIGHT Pt. Name: ?? GREGORY FATIMA ? Acc #: ?[id number] ?Pt. MRN: ?[id number] ? Col Date: ?? 03/28/2013 ?/Sex: ?1945,(68 [...] areas of hemorrhage and ? calcifications. ? [facility] ? Provider: ?? MESHA MCKNIGHT Pt. Name: ?? GREGORY FATIMA ? Acc #: ?[id number] ?Pt. MRN: ?[id number] ? Col Date: ?? 03/28/2013 ?/Sex: ?1945,(68 years),Male ? Rec Date: ?? 03/28/2013 ?LOC: ?[facility] ? SURGICAL PATHOLOGY ? SECTIONS/PROCESSING: Presiding Judge sections are subm itted. (R6) ? B [...] Organization Address City/State/[place] [address] CERNER MILLENNIUM Frozen Section Report (03/28/2013 12:03 PM EDT) Component Value Ref Test Analysis Performed At [facility] gist Range Method Time Signature Frozen CERNER Section ? [facility] Report ? Provider: ?? MESHA MCKNIGHT Pt. Name: ?? GREGORY FATIMA ? Acc #: ?[id number] ?Pt. MRN: ?[id number] ? Col Date: ?? 03/28/2013 ?/Sex: ?1945,(68 [...] City/[facility]/[place]IP [place] [address] CERNER MILLENNIUM POCT Glucose [...] CARE TEST ORDERABLE S Performing Organization Address City/[facility]/ZIP Code Phon e Number [address] CERNER MILLENNIUM Specimen to [...] City/[facility]/ZIP [place] [address] CERNER MILLENNIUM Antibody screen (03/28/2013 9:37 AM EDT) Analysis Performed At Patho logist Time Signature Ab Screen Negative CERNER Interp MILLENNIUM Expires at [id number] CERNER 288 on: MILLENNIUM Specimen Anatomical Collection Method Collection Time Receive d Time (Source) Location / / Volume Laterality Blood specimen 03/28/2013 9:37 AM 013 9:37 (specimen) EDT AM EDT Resulting Agency Comment Spec In Lab Mesha Mcknight MD BLOOD BANK ORDERABLES Performing Organization Address City/[facility]/Z[place] [address] [facility] GRISELDA[facility]NIUM ABO/Rh Typing (03/28/2013 9:37 AM EDT) athologist Signature ABORh Type O Pos [facility] Specimen Anatomical Collection Method Collection Time Receive d Time (Source) Location / / Volume Laterality Blood specimen 03/28/2013 9:37 AM 013 9:37 (specimen) EDT AM EDT Resulting Agency Comment Spec In Lab Mesha Mcknight MD BLOOD BANK ORDERABLES Performing Organization Address City/[facility]/ZIP Code Phon e Number [address] [facility] Differential, Automated (03/28/2013 9:34 AM EDT) athologist [...] Organization Address City/State/ZIP Code Phon e Number [place] [phone]OS[address] CERNER MILLENNIUM (ABNORMAL) Basic [...] Organization Address City/State/[place] [address] CERNER MILLENNIUM (ABNORMAL) CBC [...] MPV 9.3 9.0 - 12.0 CERNER fL [facility] Specimen Anatomical Collection Method Collection Time Receive d Time (Source) Location / / Volume Laterality Blood specimen 03/28/2013 9:34 AM 013 9:38 (specimen) EDT AM EDT Resulting Agency Comment Spec In Lab Mesha Mcknight MD HEMATOLOGY ORDERABLES Performing Organization Address City/[facility]/ZIP Code Phon e Number [address] [facility] POCT Glucose (03/28/2013 9:17 AM EDT) athologist Signature POC Glucose 108 60 - 199 CERNER mg/dL [facility] Comment: Supplemental ranges: <110 mg/dL before meals <200 mg/dL all other times of the day Specimen Anatomical Collection Method Collection Time Receive d Time (Source) Location / / Volume Laterality Blood specimen 03/28/2013 9:17 AM 013 9:17 (specimen) EDT AM EDT Mesha Mcknight MD POINT OF CARE TEST ORDERABLE S Performing Organization Address City/[facility]/ZIP Code Phon e Number [address] [facility] Specimen to Pathology (surgical or derm) (03/28/2013 8:55 AM EDT) Specimen Anatomical Collection Method Collection Time Receive d Time (Source) Location / / Volume Laterality AP Specimen 03/28/2013 8:55 AM 3 8:54 EDT AM EDT Narrative [facility] GRIS[facility] - 03/28/2013 8:55 AM E DT Specimen requisition ordered. ??Separate Pathology report to follow Mesha Mcknight MD PATHOLOGY/CYTOLOGY ORDERABLE S Performing Organization Address City/[facility]/ZIP Code Phon e Number [address] RAKESH WALKER documented in [...] Rice)1120 (Anesthesia Volume Adjustment - Provider: Tessa iRce)1247 (Anesthesia Volume Adjustment - Provider: Tessa Rice) [...] override documented in this encounter Care Teams J2Ee Architect Relationship Specialty Start Date End Date Angela Holliday APRN PCP - General 01/25/13 04/15/15 [address] [place] [address] documented as of this encounter
--- OUTSIDE RECORDS SUMMARY | 2022-04-15 08:27 | XMS_ITS | Encounter Summary ---
:1945 Author Organization [place] [address] Care Team Providers Name Role Phone MiyaAngela STACIE Primary Care Provider Encounter Details Date Type Department Care Team Description 11/27/2013 Orders Only Urology at [facility] Blade Smith, Urinary retention [facility] (Primary Dx) [place] [address] UROLOGY DEPT [place], [place] [address] Social History Tobacco Use Types [...] Dolan MD [facility] er [place], [place] [address] (Wo rk) 05/28/2022 Laboratory Appointment Lab 05/28/2022 Office Visit Cardiology Zulma Dolan MD [facility] [place] [address] Liz Poole PA [facility] [place] [address] 06/10/2022 Office Visit Dermatology Laura Scherer MD [facility] ER DR TEJA GR-DERMAT [place], [place] [address] (Wo rk) documented as of [...] City/State/[place] [address] CERNER MILLENNIUM documented in this encounter Visit Diagnoses Diagnosis Urinary retention - Primary Retention of urine, unspecified documented in this encounter Care Teams Technical Implementation Lead Relationship Specialty Start Date End Date Angela Holliday APRN PCP - General 01/25/13 04/15/[address] [place] [place] [address] documented as of this encounter
--- OUTSIDE RECORDS SUMMARY | 2022-04-15 08:27 | XMS_ITS | Encounter Summary ---
:1945 Author Organization [facility] [place] [address] Care Team Providers Name Role Phone Angela Holliday APRN Primary Care Provider Encounter Details Date Type Department Care Team Description 01/25/2013 Clinical Support [place] [address] Social History Tobacco Use Types Packs/Day [...] Dolan MD [facility] [place], [place] [address] (Wo rk) 05/28/2022 Laboratory Appointment Lab 05/28/2022 Office Visit Cardiology Zulma Dolan MD [facility] [place] [address] Liz Poole PA [facility] [place] [address] 06/10/2022 Office Visit Dermatology Laura Scherer MD [facility] DR TEJA GR[address]DERMAT [place], [place] [address] (Wo rk) documented as of this encounter Visit Diagnoses Not on filedocumented in this encounter Care Teams Jewelry Cutter Relationship Specialty Start Date End Date Angela Holliday APRN PCP - General 01/25/13 04/15/[address] [place] [address] documented as of this encounter
--- OUTSIDE RECORDS SUMMARY | 2022-04-15 08:27 | XMS_ITS | Encounter Summary ---
:1945 Author Organization [facility] [place] [address] Care Team Providers Name Role Phone Angela Holliday APRN Primary Care Provider Encounter Details Date Type Department Care Team Description 03/15/2013 Telephone General Surgery at [facility] [place], [place] [address] Social History Tobacco Use Types Packs/Day [...] Zulma Dolan MD [facility] [place], [place] [address] (Wo rk) 05/28/2022 Laboratory Appointment Lab 05/28/2022 Office Visit Cardiology Zulma Dolan MD [facility] [place] [address] Liz Poole PA [facility] [place] [address] 06/10/2022 Office Visit Dermatology Laura Scherer MD [facility] DR TEJA GR-DERMAT [place], [place] [address] (Wo rk) documented as of this encounter Visit Diagnoses Not on filedocumented in this encounter Care Teams Hard Hat Diver Relationship Specialty Start Date End Date Angela Holliday APRN PCP - General 01/25/13 04/15/[address] [place] [address] documented as of this encounter
--- OUTSIDE RECORDS SUMMARY | 2022-04-15 08:27 | XMS_ITS | Encounter Summary ---
:1945 Author Organization [facility] [place] [address] Care Team Providers Name Role Phone Lovely Vicente MD Primary Care Provider Reason for Visit Reason Comments Medication Refill Encounter Details Date Type Department Care Team Description 05/10/2015 Refill Endocrinology at [facility] Rosalind Covarrubias, [facility] [place] [address] [facility] [phone] ENDOCRINOLOGY [place], [place] [address] (Wo rk) Social History Tobacco [...] [facility] [place], [place] [address] (Wo rk) 05/28/2022 Laboratory Appointment Lab 05/28/2022 Office Visit Cardiology Zulma Dolan MD [facility] [place] [address] Liz Poole PA [facility] [place] [address] 06/10/2022 Office Visit Dermatology Laura Scherer MD [facility] ER DR TEJA GR-DERMAT [place], [place] [address] (Wo rk) documented as of this encounter Visit Diagnoses Not on filedocumented in this encounter Care Teams Dump Grader Relationship Specialty Start Date End Date Lovely Vicente MD PCP - General 04/16/[address] [place] [address] documented as of this encounter
--- OUTSIDE RECORDS SUMMARY | 2022-04-15 08:27 | XMS_ITS | Encounter Summary ---
:1945 Author Organization [facility] [place] [address] Care Team Providers Name Role Phone Unknown Primary Care Provider Unavailable Reason for Visit Reason Comments Other Encounter Details Date Type Department Care Team Description 10/05/2012 Telephone Dermatology at [facility] Rigoberto Garcia III, [address] [place] [address] [facility] [phone] TEJA MARIE-DERMAT [place] [phone] (Wo rk) Social History Tobacco Use Types [...] Cardiology Zulma Dolan MD [facility] [place], [place] 0[address] (Wo rk) 05/28/2022 Laboratory Appointment Lab 05/28/2022 Office Visit Cardiology Zulma Dolan MD [facility] [address] Liz Poole PA [facility] [place] [address] 06/10/2022 Office Visit Dermatology Laura Scherer MD [facility] DR TEJA MARIE-DERMAT [place], [place] 0[address] (Wo rk) documented as of this encounter Visit Diagnoses Not on filedocumented in this encounter Care Teams Soda Dispenser Relationship Specialty Start Date End Date Unknown PCP - General 10/04/12 01/24/13 None documented as of this encounter
--- OUTSIDE RECORDS SUMMARY | 2022-04-15 08:27 | XMS_ITS | Encounter Summary ---
:1945 Author Organization [facility] [place] [address] Care Team Providers Name Role Phone Lovely Vicente MD Primary Care Provider Reason for Visit Reason Comments Skin Check Encounter Details Date Type Department Care Team Description 04/16/2015 Follow-Up Dermatology at [facility] Forman x of melanoma of skin; Abdelrahman HOOPER MD Multiple benign nevi [address] [place] [address] [facility][1]-DERMATOLGY [place], [place] 0[address] (Wo rk) Social History Tobacco [...] by [facility].(Non- Drug; Combo Route) [...] MD [facility] [place], [place] 0[address] (Wo rk) 05/28/2022 Laboratory Appointment Lab 05/28/2022 Office Visit Cardiology Zulma Dolan MD [facility] [place] [address] Liz Poole PA [facility] [place] [address] 06/10/2022 Office Visit Dermatology Laura Scherer MD [facility] DR TEJA GR-DERMAT [place], [place] 0[address] (Wo rk) documented as of this encounter Visit Diagnoses Diagnosis Hx of melanoma of skin Personal history of malignant melanoma o f skin Multiple benign nevi Benign neoplasm of skin, site unspecifie d documented in this encounter Care Teams Rn Dermatology Relationship Specialty Start Date End Date Lovely Vicente MD PCP - General 04/16/[address] [place] [address] [address] [place] [address] documented as of this encounter
--- OUTSIDE RECORDS SUMMARY | 2022-04-15 08:27 | XMS_ITS | Encounter Summary ---
:1945 Author Organization [facility] [place] [address] Care Team Providers Name Role Phone Angela Holliday APRN Primary Care Provider Encounter Details Date Type Department Care Team Description 04/30/2014 Orders Only Endocrinology at [facility] Albertina Palmer, Thyroid cancer [facility] Jorge Boyer MD (Primary [place]x) [place] [address] [facility] [phone] CENTER ENDOCRINOLOGY DEPT [place], [place] 0[address] Social History Tobacco Use Types [...] MD [facility] er Dr [place], [place] 0[address] (Wo rk) 05/28/2022 Laboratory Appointment Lab 05/28/2022 Office Visit Cardiology Zulma Dolan [place] [address] Liz Poole PA [facility] [place] [address] 06/10/2022 Office Visit Dermatology Laura Scherer MD [facility] ER DR TEJA GR-DERMAT [place], [place] 0[address] (Wo rk) documented as of this encounter Visit Diagnoses Diagnosis Thyroid cancer - Primary Malignant neoplasm of thyroid gland documented in this encounter Care Teams Fibreglass Laminator Relationship Specialty Start Date End Date Angela Holliday APRN PCP - General 01/25/13 04/15/[address] [place] [address] documented as of this encounter
--- OUTSIDE RECORDS SUMMARY | 2022-04-15 08:27 | XMS_ITS | Encounter Summary ---
:1945 Author Organization [facility] [place] [address] Care Team Providers Name Role Phone Angela Holliday APRN Primary Care Provider Reason for Visit Reason Onset Date Comments Other 03/30/2013 blood in catheter ba g Encounter Details Date Type Department Care Team Description 03/30/2013 Telephone General Surgery at [facility] Janneth Sharma, Other (blood in [facility] RN catheter bag) [place] [address] Social History Tobacco Use Types Packs/Day [...] Zulma Dolan MD [facility] [place], [place] 0[address] (Wo rk) 05/28/2022 Laboratory Appointment Lab 05/28/2022 Office Visit Cardiology Zulma Dolan MD [facility] [place] [address] Liz Poole PA [facility] [place] [address] 06/10/2022 Office Visit Dermatology Laura Scherer MD [facility] DR TEJA GR-DERMAT [place], [place] 0[address] (Wo rk) documented as of this encounter Visit Diagnoses Not on filedocumented in this encounter Care Teams Preservationist Relationship Specialty Start Date End Date Angela Holliday APRN PCP - General 01/25/13 04/15/[address] [place] [address] documented as of this encounter
--- OUTSIDE RECORDS SUMMARY | 2022-04-15 08:27 | XMS_ITS | Encounter Summary ---
:1945 Author Organization [facility] [place] [address] Care Team Providers Name Role Phone MiyaAngela STACIE Primary Care Provider Reason for Visit Reason Comments Post Op voiding trial Encounter Details Date Type Department Care Team Description 04/05/2013 Office Visit Urology at [facility] Darryl Egna, UTI ([facility] MD tract infection) [facility] (Primary Dx) [place] [address] UROLOGY DEPT [phone] [place], [place] 0[address] Social History Tobacco Use [...] Zulma Dolan MD [facility] [place], [place] 0[address] (Wo rk) 05/28/2022 Laboratory Appointment Lab 05/28/2022 Office Visit Cardiology Zulma Dolan MD [facility] [place] [address] Liz Poole PA [facility] [place] [address] 06/10/2022 Office Visit Dermatology Laura Scherer MD [facility] DR TEJA GR-DERMAT [place], [place] [address] [...] GREGORY HOANG ? Ordered By: DARRYL EGAN [facility] ? MR#: [id number] ?LOC: ??5B ? /Sex: ??1945 (68 years), [...] S ? Patient: GREGORY HOANG ? MR#: [id number] ? FOOTNOTES ? (1) ? This organism [...] Address City/State/[place] [address] RAKESH WALKER documented in this encounter Visit Diagnoses Diagnosis UTI (lower urinary tract infection) - Pr imary Urinary tract infection, site not specif ied documented in this encounter Care Teams Organizational Effectiveness Consultant Relationship Specialty Start Date End Date Angela Holliday APRN PCP - General 01/25/13 04/15/[address] [place] [address] documented as of this encounter
--- OUTSIDE RECORDS SUMMARY | 2022-04-15 08:27 | XMS_ITS | Encounter Summary ---
:1945 Author Organization [facility] [place] [address] Care Team Providers Name Role Phone Som Holliday APRN Primary Care Provider Encounter Details Date Type Department Care Team Description 04/11/2014 Procedure visit Gastroenterology at [facility], CONV Esophageal reflux [facility] Luz Winchester RN (Primary Dx) [place] [address] Social History Tobacco Use Types Packs/Day Years Used Date Former Smoker Alcohol Use Standard Drinks/Week Comments No 0 (1 standard drink = 0.6 oz pure alcoho l) Sex Assigned at Date Recorded Not on file documented as of this encounter Progress Notes Adalid Can MD - 04/13/2014 3:43 PM EDT ESOPHAGEAL MANOMETRY Don Fatima Male, 69 yrs, 1945 PCP: SOM HOLLIDAY [employer]LECT[employer] MECHANIC: NONE STUDY DATE: 04/11/14 PROVIDER: Adalid Can, [place] ([id number]) INDICATION Reflux; preoperative evaluation. METHODS Stationary esophageal manometry was performed with the Lolay esophageal motility system utilizing the Polygram software [...] of the esophagus. Adalid Can, PhD, MD instruction librarian, [employer] Section of Gastroenterology and Hepatology [facility] [place] [address] V: [phone] F: [phone] [facility]/gabriela CC/EC: PCP - staff msg copy 04/13/14 Henrique Taylor MD - fax copy 04/13/14 Luz Keller RN - 04/11/2014 8:14 AM EDT Esophageal manometry performed without difficulty and Was well tolerated. documented in this encounter Plan of Treatment Upcoming Encounters Date Type Specialty Care Team Description 05/28/2022 Appointment Cardiology Zulma Dolan MD [facility] [place], [place] [address] (Wo rk) 05/28/2022 Laboratory Appointment Lab 05/28/2022 Office Visit Cardiology Zulma Dolan MD [facility] [place] [address] Liz Poole PA [facility] [place] [address] 06/10/2022 Office Visit Dermatology Laura Scherer MD [facility] DR TEJA GR-DERMAT [place], [place] 0[address] (Wo rk) documented as of this encounter Visit Diagnoses Diagnosis Esophageal reflux - Primary documented in this encounter Care Teams Stage Set Designer Relationship Specialty Start Date End Date Som Holliday APRN PCP - General 01/25/13 04/15/[address] [place] [address] documented as of this encounter
--- OUTSIDE RECORDS SUMMARY | 2022-04-15 08:27 | XMS_ITS | Encounter Summary ---
:1945 Author Organization [facility] [place] [address] Care Team Providers Name Role Phone Adi Costello MD Primary Care Provider Reason for Visit Reason Comments Annual Exam ckeck his groin and melanoma follow-up Encounter Details Date Type Department Care Team Description 11/21/2010 Follow-Up Dermatology Arik Tipton Melanoma (Primary Dx) [facility] MD Jorge [place] [id number] DERMATOLOGY DEPT . 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 His only complaints are leg [...] Arik Tipton MD Section of Dermatology [facility] documented in this encounter Plan of Treatment Upcoming Encounters Date Type Specialty Care Team Description 05/28/2022 Appointment Cardiology Zulma Dolan MD [facility] [place], [place] [address] (Wo rk) 05/28/2022 Laboratory Appointment Lab 05/28/2022 Office Visit Cardiology Zulma Dolan MD [facility] [place] [address] Liz Poole PA [facility] [place] [address] 06/10/2022 Office Visit Dermatology Laura Scherer MD [facility] DR TEJA GR-DERMAT [place], [place] [address] (Wo rk) documented as of this encounter Visit Diagnoses Diagnosis Melanoma - Primary Melanoma of skin, site unspecified documented in this encounter Care Teams Corporate Compliance Manager Relationship Specialty Start Date End Date Adi Costello MD PCP - General 06/17/10 09/21/11 [address] [place] [address] documented as of this encounter
--- OUTSIDE RECORDS SUMMARY | 2022-04-15 08:27 | XMS_ITS | Encounter Summary ---
:1945 Author Organization [facility] [place] [address] Care Team Providers Name Role Phone Angela Holliday APRN Primary Care Provider Reason for Visit Reason Comments Skin Check Encounter Details Date Type Department Care Team Description 07/31/2013 Follow-Up Dermatology at [facility] Forman eoplasm of unspecified nature of bone, soft tissue, and skin (Primary Dx); Abdelrahman HOOPER MD Seborrheic psoriasis- scalp and ingtergl uteal area; [address] [facility] Atypical [place] [address] [facility]-DERMATOLGY [place], [place] [address] (Wo rk) Social History [...] Rigoberto Albarran MD Section of Dermatology [facility] documented in this encounter Plan of Treatment Upcoming Encounters Date Type Specialty Care Team Description 05/28/2022 Appointment Cardiology Zulma Dolan MD [facility] [address] [place] [id number] (Wo lissa) 05/28/2022 Laboratory Appointment Lab 05/28/2022 Office Visit Cardiology Zulma Dolan MD [facility] [place] [id number] Liz Poole PA [facility] [place] [address] 06/10/2022 Office Visit Dermatology Laura Scherer MD [facility] DR TEJA GR-DERMAT [place], [place] 0[address] (Wo rk) Scheduled Orders Name [...] Test Analysis Performed At [facility] gist Range Method Time Signature Surgical CERNER Pathology ? [facility] Report ? Provider: ?? RIGOBERTO ALBARRAN III Pt. Name: ?? GREGORY HOANG ?A ? Acc #: ?[id number] ? Pt. ? Col Date: ?? 07/31/2013 [...] x 0.8 x 0.2 cm. ? [facility] ? Provider: ?? DEION III, RIGOBERTO Pt. Name: ?? GREGORY HOANG ?A ? Acc #: ?[id number] ? Pt. ? Col Date: ?? 07/31/2013 [...] MD PATHOLOGY/CYTOLOGY ORDERABLE S Performing Organization Address City/[facility]/ZIP Code Phon e Number [address] CERNER MILLENNIUM Specimen to [...] MD PATHOLOGY/CYTOLOGY ORDERABLE S Performing Organization Address City/[facility]/[place] [address] CERNER MILLENNIUM documented in this encounter Visit Diagnoses Diagnosis Neoplasm of unspecified nature of bone, soft tissue, and skin - Primary Seborrheic psoriasis- scalp and ingtergl uteal area Other psoriasis Atypical nevus of abdominal wall Benign neoplasm of skin of trunk, except scrotum documented in this encounter Care Teams Seafood Specialist Relationship Specialty Start Date End Date Angela Holliday APRN PCP - General 01/25/13 04/15/[address] [place] [address] documented as of this encounter
--- OUTSIDE RECORDS SUMMARY | 2022-04-15 08:27 | XMS_ITS | Encounter Summary ---
:1945 Author Organization [facility] [place] [address] Care Team Providers Name Role Phone MiyaLokeshAngela STACIE Primary Care Provider Encounter Details Date Type Department Care Team Description 04/04/2013 Orders Only General Surgery at Manny Mcknight thyroid [facility] MD Eliseo carcinoma (Primary Dx) [facility] [place] [address] GENERAL SURGERY [phone] [place], [place] [address] Social History Tobacco Use [...] [facility] er [place], [place] [address] (Wo rk) 05/28/2022 Laboratory Appointment Lab 05/28/2022 Office Visit Cardiology Zulma Dolan MD [facility] [place] [address] Liz Poole PA [facility] [place] [address] 06/10/2022 Office Visit Dermatology Laura Scherer MD [facility] DR TEJA GR-DERMAT [place], [place] [address] (Wo rk) documented as of this encounter Visit Diagnoses Diagnosis Papillary thyroid carcinoma - Primary Malignant neoplasm of thyroid gland documented in this encounter Care Teams Bindery Leadperson Relationship Specialty Start Date End Date Angela Holliday APRN PCP - General 01/25/13 04/15/[address] [place] [address] documented as of this encounter
--- OUTSIDE RECORDS SUMMARY | 2022-04-15 08:27 | XMS_ITS | Encounter Summary ---
:1945 Author Organization [facility] [place] [address] Care Team Providers Name Role Phone Angela Holliday APRN Primary Care Provider Reason for Referral Surgical (Routine) - Closed Specialty Diagnoses / Procedures Referred By Contact Refer red To Contact General Surgery Diagnoses Elijah Villagomez MD Colacchio, Thomas A, MD [address] [place] [address] [place] [address] [place] [address] Phone: Fax: Referral ID Status Reason Start Date Expiration Date Visits V isits Requested Authorized [id number] Closed Specialty 01/25/2013 07/24/2013 1 1 Service Requested Reason for Visit Reason Comments Thyroid Problem Encounter Details Date Type Department Care Team Description 01/25/2013 Office Visit Endocrinology at [facility] Elijah Fuentes Goiter (Primary Dx) [facility] [address] [place] [phone] [place] [address] [phone] Social History Tobacco Use Types Packs/Day Years [...] History 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 All [...] the thyroid gland were obtained using a SonMyWantsaxx and an HFL38/13-6 broadband linear array transducer. [...] Cardiology Zulma Dolan MD [facility] [place], [place] [address] (Wo rk) 05/28/2022 Laboratory Appointment Lab 05/28/2022 Office Visit Cardiology Zulma Dolan [place] [address] Liz Poole PA [facility] [place] [address] 06/10/2022 Office Visit Dermatology Laura Scherer MD [facility] DR TEJA GR-DERMAT [place], [place] 0[address] (Wo rk) Scheduled Referrals Name [...] Organization Address City/State/[place] [address] CERNER MILLENNIUM documented in this encounter Visit Diagnoses Diagnosis Goiter - Primary Goiter, unspecified documented in this encounter Care Teams Inspector Canned Food Reconditioning Relationship Specialty Start Date End Date Angela Holliday APRN PCP - General 01/25/13 04/15/[address] [place] [address] documented as of this encounter
--- OUTSIDE RECORDS SUMMARY | 2022-04-15 08:27 | XMS_ITS | Encounter Summary ---
:1945 Author Organization [facility] [address] Care Team Providers Name Role Phone Angela Holliday APRN Primary Care Provider Reason for Visit Reason Comments Other Encounter Details Date Type Department Care Team Description 08/01/2013 Telephone Dermatology at [facility] Rigoberto Garcia III, [address] [place] [address] [facility] [phone] TEJA MARIE-DERMAT [place], [place] [address] (Wo rk) Social History Tobacco [...] III Pt. Name: DON HOANG Acc #: [id number] Pt. Col Date: 07/31/2013 /Sex: 1945,(68 years),Male [...] Cardiology Zulma Dolan MD [facility] [place], [place] [address] (Wo lissa) 05/28/2022 Laboratory Appointment Lab 05/28/2022 Office Visit Cardiology Zulma Dolan MD [facility] [place] [address] Liz Poole PA [facility] [place] [address] 06/10/2022 Office Visit Dermatology Laura Scherer MD [facility] DR TEJA MARIE-DERMAT [place], [place] [address] (Wo rk) documented as of this encounter Visit Diagnoses Not on filedocumented in this encounter Care Teams Industrial Truck Mechanic Relationship Specialty Start Date End Date Angela Holliday APRN PCP - General 01/25/13 04/15/[address] [place] [address] documented as of this encounter
--- OUTSIDE RECORDS SUMMARY | 2022-04-15 08:27 | XMS_ITS | Encounter Summary ---
:1945 Author Organization [facility] [place] [address] Care Team Providers Name Role Phone MiyaAngela STACIE Primary Care Provider Encounter Details Date Type Department Care Team Description 04/26/2014 Office Visit Endocrinology at [facility] Albertina Palmer, Papillary thyroid [facility] [place] [address] CENTER [phone] ENDOCRINOLOGY DEPT [place] [address] Social History Tobacco Use Types Packs/Day Years [...] MD [facility] Dr [place], [place] [address] (Wo rk) 05/28/2022 Laboratory Appointment Lab 05/28/2022 Office Visit Cardiology Zulma Dolan MD [facility] [place] [address] Liz Poole PA [facility] [place] [address] 06/10/2022 Office Visit Dermatology Laura Scherer MD [facility] DR TEJA GR-DERMAT [place], [place] 0[address] (Wo rk) documented as of [...] athologist Signature Thyroglobulin <0.4 <=54.9 CERNER ng/mL [facility] Comment: Interpret with caution. Tg [...] than those obtained with T4 withdrawal protocol (aFllon BR et al. J Clin Endo Metab 1999;84:3616-0653). Assay performed using the DPC Immulite T [...] Address City/State/ZIP Code Phon e Number [address] CERNER MILLENNIUM (ABNORMAL) TSH (04/26/2014 9:07 AM EDT) P athologist Signature TSH 4.46 (H) 0.27 - 4.20 CERNER mcIU/mL MILLENNIUM Specimen Anatomical Collection Method Collection Time Receive d Time (Source) Location / / Volume Laterality Blood specimen 04/26/2014 9:07 AM 014 9:12 (specimen) EDT AM EDT Resulting Agency Comment Spec In Lab Rosalind Palmer MD CHEMISTRY ORDERABLES Performing Organization Address City/[facility]/ZIP Code Phon e Number [address] CERNER MILLENNIUM documented in this encounter Visit Diagnoses Diagnosis Papillary thyroid carcinoma Malignant neoplasm of thyroid gland documented in this encounter Care Teams Purification Supervisor Relationship Specialty Start Date End Date Angela Holliday APRN PCP - General 01/25/13 04/15/[address] [place] [address] documented as of this encounter
--- OUTSIDE RECORDS SUMMARY | 2022-04-15 08:27 | XMS_ITS | Encounter Summary ---
:1945 [place] [address] Care Team Providers Name Role Phone Holley Hollidayica STACIE Primary Care Provider Encounter Details Date Type Department Care Team Description 03/28/2013 - Hospital [facility] (Primary 03/29/2013 Barbara Gomes MD Dx) [facility] DR Siddiqui [place] [address] [phone] Social History Tobacco Use Types Packs/Day Years [...] please call the General Surgery nurse at [phone], since this may mean that you need morecalcium. Follow-up Appointment: Will be scheduled with Dr. Mcknight in 6 weeks Date and time as well as any required labs will be mailed to you Please call [phone] to confirm date and time of your [...] by calcium supplementation. Phone number for questions: [phone] before 5 PM weekdays [phone] after 5 PM and on weekends/holidays Please [...] Willams MD - 03/28/2013 3:43 PM EDT [facility] Operative Note Patient Name: Gregory Fatima : [id number] MR#: [id number] Case Date: 03/28/2013 Surgeon: Surgeon(s) and Role: [...] Operative Note Patient Name: Gregory Fatima : [id number] MR#: [id number] Case Date: 03/28/2013 Surgeon: Surgeon(s) and Role: [...] MD [facility] er Dr Re[place] 0[address] (Wo rk) 05/28/2022 Laboratory Appointment Lab 05/28/2022 Office Visit Cardiology Zulma Dolan MD [facility] I[place] [address] Liz Poole PA [facility] [place] [address] 06/10/2022 Office Visit Dermatology Laura Scherer MD [facility] ER DR TEJA GR-DERMAT [place] [address] (Wo rk) documented as of this encounter [...] City/State/[place] [address] CERNER MILLENNIUM (ABNORMAL) POCT [...] City/[facility]/[place]IP [place] [address] CERNER MILLENNIUM (ABNORMAL) POCT [...] City/[facility]/ZIP Code Phon e Number [address] CERNER MILLENNIUM (ABNORMAL) [...] City/[facility]/ZIP Code Phon e Number [address] CERNER MILLENNIUM (ABNORMAL) [...] City/[facility]/ZIP Code Phon e Number [address] CERNER MILLENNIUM (ABNORMAL) [...] City/[facility]/ZIP Code Phon e Number [address] CERNER MILLENNIUM (ABNORMAL) [...] City/[facility]/ZIP Code Phon e Number [address] CERNER MILLENNIUM (ABNORMAL) [...] City/[facility]/ZIP Code Phon e Number [address] [facility] [...] City/[facility]/ZIP Code Phon e Number [address] [facility] Pathology Addendum Report (03/28/2013 12:03 PM EDT) Component Value Ref Test Analysis Performed At [facility] gist Range Method Time Signature Addendum CERNER Report ? [facility] ? Provider: ?? MESHA MCKNIGHT Pt. Name: ?? GREGORY FATIMA ? Acc #: ?[id number] ?Pt. MRN: ?[id number] ? Col Date: ?? 03/28/2013 ?/Sex: ?1945,(68 [...] Organization Address City/State/[place] [address] [facility] Surgical Pathology Report (03/28/2013 12:03 PM EDT) Component Value Ref Test Analysis Performed At [facility] gist Range Method Time Signature Surgical [facility] Pathology ? [facility] Report ? Provider: ?? MESHA MCKNIGHT Pt. Name: ?? GREGORY FATIMA ? Acc #: ?[id number] ?Pt. MRN: ?[id number] ? Col Date: ?? 03/28/2013 ?/Sex: ?1945,(68 [...] areas of hemorrhage and ? calcifications. ? [facility] ? Provider: ?? MESHA MCKNIGHT Pt. Name: ?? GREGORY FATIMA ? Acc #: ?[id number] ?Pt. MRN: ?[id number] ? Col Date: ?? 03/28/2013 ?/Sex: ?1945,(68 years),Male ? Rec Date: ?? 03/28/2013 ?LOC: ?[facility] ? SURGICAL PATHOLOGY ? SECTIONS/PROCESSING: Dial Equipment Engineer sections are subm itted. (R6) ? B [...] Organization Address City/State/[place] [address] CERNER MILLENNIUM Frozen Section Report (03/28/2013 12:03 PM EDT) Component Value Ref Test Analysis Performed At [facility] gist Range Method Time Signature Frozen CERNER Section ? [facility] Report ? Provider: ?? MESHA MCKNIGHT Pt. Name: ?? GREGORY FATIMA ? Acc #: ?[id number] ?Pt. MRN: ?[id number] ? Col Date: ?? 03/28/2013 ?/Sex: ?1945,(68 years),Male ? Rec Date: ?? 03/28/2013 ?LOC: ?[facility] ? FROZEN SECTION REPORT ? ---Frozen Section Report--- ? Part A - Intraoperati ve gross consultation was performed. ??The case was ? discussed by phone with Dr. Mcnkight, and no frozen ? section was performed. [...] City/[facility]/[place] [address] CERNER MILLENNIUM POCT Glucose [...] City/[facility]/ZIP Code Phon e Number [address] CERNER MILLENNIUM Specimen to [...] City/[facility]/[place] [address] CERNER MILLENNIUM Antibody screen (03/28/2013 9:37 AM EDT) Analysis Performed At Patho logist Time Signature Ab Screen Negative CERNER Interp MILLENNIUM Expires at [id number] CERNER 091 on: MILLENNIUM Specimen Anatomical Collection Method Collection Time Receive d Time (Source) Location / / Volume Laterality Blood specimen 03/28/2013 9:37 AM 013 9:37 (specimen) EDT AM EDT Resulting Agency Comment Spec In Lab Mesha Mcknight MD BLOOD BANK ORDERABLES Performing Organization Address City/[facility]/[place] [address] [facility] GRISELDAENNIUM ABO/Rh Typing (03/28/2013 9:37 AM EDT) athologist Signature ABORh Type O Pos [facility] Specimen Anatomical Collection Method Collection Time Receive d Time (Source) Location / / Volume Laterality Blood specimen 03/28/2013 9:37 AM 013 9:37 (specimen) EDT AM EDT Resulting Agency Comment Spec In Lab Mesha Mcknight MD BLOOD BANK ORDERABLES Performing Organization Address City/[facility]/ZIP Code Phon e Number [address] [facility] GRSIELD[facility]PE [facility] Differential, Automated (03/28/2013 9:34 AM EDT) [...] City/State/ZIP Code Phon e Number [place] [id number]OS[address] CERNER MILLENNIUM (ABNORMAL) Basic [...] intervals supplied above were not validated at [facility]. Results from pediatri c [...] Organization Address City/State/[place] [address] CERNER MILLENNIUM (ABNORMAL) CBC [...] 9.0 - 12.0 CERNER [facility]L [facility] Specimen Anatomical Collection Method Collection Time Receive d Time (Source) Location / / Volume Laterality Blood specimen 03/28/2013 9:34 AM 013 9:38 (specimen) EDT AM EDT Resulting Agency Comment Spec In Lab Mesha Mcknight MD HEMATOLOGY ORDERABLES Performing Organization Address City/[facility]/ZIP Code Phon e Number [address] [facility] GR[facility] POCT Glucose (03/28/2013 9:17 AM EDT) [...] City/[facility]/ZIP Code Phon e Number [address] [facility] Specimen to Pathology (surgical or derm) (03/28/2013 8:55 AM EDT) Specimen Anatomical Collection Method Collection Time Receive d Time (Source) Location / / Volume Laterality AP Specimen 03/28/2013 8:55 AM 3 8:54 EDT AM EDT N[facility]ative [facility] - 03/28/2013 8:55 AM E DT Specimen requisition ordered. ??Separate Pathology report to follow Mesha Mcknight MD PATHOLOGY/CYTOLOGY ORDERABLE S Performing Organization Address City/[facility]/ZIP Code Phon e Number [address] [facility] documented [...] RN) 0900 (Given - Provider: Radha Yao [facility], RN) 2.5 mg, Oral, DAILY, First [...] override documented in this encounter Care Teams Home Care Manager Rn Relationship Specialty Start Date End Date Angela Holliday APRN PCP - General 01/25/13 04/15/15 [address] [place] [address] documented as of this encounter
--- OUTSIDE RECORDS SUMMARY | 2022-04-15 08:27 | XMS_ITS | Encounter Summary ---
:1945 [place] [address] Care Team Providers Name Role Phone MiyaLokeshAngela STACIE Primary Care Provider Encounter Details Date Type Department Care Team Description 03/28/2013 Anesthesia Event Main Operating Room Meredith Calvert MD [facility] [place] [address] [facility] Nolvia Riojas PA [facility] [place] [address] [place] [address] Anesthesia Record Procedure Summary Procedure Name [...] Appointment Cardiology Zulma Dolan MD [facility] [place], [place] [address] (Wo rk) 05/28/2022 Laboratory Appointment Lab 05/28/2022 Office Visit Cardiology Zulma Dolan MD [facility] [place] [address] Liz Poole PA [facility] [place] [address] 06/10/2022 Office Visit Dermatology Laura Scherer MD [facility] DR TE[address] [place], [place] [address] (Wo rk) documented as [...] Routine documented in this encounter Care Teams Energy Attorney Relationship Specialty Start Date End Date Angela Holliday APRN PCP - General 01/25/13 04/15/[address] [place] [address] documented as of this encounter
--- OUTSIDE RECORDS SUMMARY | 2022-04-15 08:27 | XMS_ITS | Encounter Summary ---
:1945 Author Organization [facility] [place] [address] Care Team Providers Name Role Phone Lovely Vicente MD Primary Care Provider Reason for Visit Reason Comments Thyroid Cancer Encounter Details Date Type Department Care Team Description 06/05/2015 Office Visit Endocrinology at [facility] Albertina Prescott, History of papillary [facility] MD Luz adenocarcinoma of [facility] thyroid (Primary Dx) [place] [address] CENTER [phone] [place] [address] Social History Tobacco Use Types Packs/Day Years [...] the thyroid gland were obtained using a [employer] ultrasound machine. All measurements are given as AP x Transverse x Longitudinal Right Lobe: Absent Left Lobe: Absent Isthmus: Absent Central/Lateral neck: no morphologically abnormal lymph nodes. Impression: No sonographic evidence of recurrence. LUZ PRESCOTT MD Surface Supply Breathing Apparatusmerchandise planning manager Section of Endocrinology [facility] Luz Prescott MD - 06/05/2015 8:21 AM [...] Diagnostic, Drum (ACCU-CHEK COMPACT TEST) Strip by [facility].(Non-Drug; Combo Route) route 2 times daily. Yes [...] --f/u in 1 year LUZ PRESCOTT MD Surface Supply Breathing Apparatusmerchandise planning manager Section of Endocrinology [facility] documented in this encounter Miscellaneous Notes Addendum [...] MD [facility] [address], [place] [address] (Wo rk) 05/28/2022 Laboratory Appointment Lab 05/28/2022 Office Visit Cardiology Zulma Dolan MD [facility] [place] [address] Liz Poole PA [facility] [place] [address] 06/10/2022 Office Visit Dermatology Laura Scherer MD [facility] ER DR [address]-DERMAT [place], [place] [address] (Wo rk) documented as [...] BR et al. J Clin Endo Metab 1999;84:0224-9784). Assay performed using the [employer] Immulite T [...] [place] [address] CERNER MILLENNIUM (ABNORMAL) TSH (06/05/2015 9:04 AM EST) P athologist Signature TSH 5.88 (H) 0.27 - 4.20 CERNER mcIU/mL MILLENNIUM Specimen Anatomical Collection Method Collection Time Receive d Time (Source) Location / / Volume Laterality Blood specimen 06/05/2015 9:04 AM 015 9:15 (specimen) EST AM EST Resulting Agency Comment Spec In Lab Luz Prescott MD CHEMISTRY ORDERABLES Performing Organization Address City/[facility]/[place] [address] CERNER MILLENNIUM documented in this encounter Visit Diagnoses Diagnosis 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
--- OUTSIDE RECORDS SUMMARY | 2022-04-15 08:27 | XMS_ITS | Encounter Summary ---
:1945 Author Organization [facility] [place] [address] Care Team Providers Name Role Phone MiyaAngela STACIE Primary Care Provider Reason for Visit Reason Onset Date Comments Advice Only 03/31/2013 Encounter Details Date Type Department Care Team Description 03/31/2013 Telephone Urology at [facility] Daniele Trejo III, MD Advice Only [facility] [place] [address] [place] [phone] (Wo rk) Social History Tobacco Use Types [...] Cardiology Zulma Dolan MD [facility] [place], [place] [address] (Wo rk) 05/28/2022 Laboratory Appointment Lab 05/28/2022 Office Visit Cardiology Zulma Dolan MD [facility] [place] [address] Liz Poole PA [facility] [place] [address] 06/10/2022 Office Visit Dermatology Laura Scherer MD [facility] DR [address] [place], [place] [address] (Wo rk) documented as of this encounter Visit Diagnoses Not on filedocumented in this encounter Care Teams Detective Homicide Squad Relationship Specialty Start Date End Date Angela Holliday APRN PCP - General 01/25/13 04/15/[address] [place] [address] documented as of this encounter
--- OUTSIDE RECORDS SUMMARY | 2022-04-15 08:27 | XMS_ITS | Encounter Summary ---
:1945 Author Organization [facility] [place] [address] Care Team Providers Name Role Phone Angela Holliday APRN Primary Care Provider Reason for Visit Reason Comments Benign Prostatic Hypertrophy Encounter Details Date Type Department Care Team Description 11/28/2013 Follow-Up Urology at [facility] Blade Smith, Urinary retention (Primary D x); [facility] BPH (benign prostatic hyperplasia) [place] [address] UROLOGY DEPT [place], [place] [address] (Wo rk) Social History Tobacco [...] Dolan MD [facility] Dr [place], [place] [address] (Wo rk) 05/28/2022 Laboratory Appointment Lab 05/28/2022 Office Visit Cardiology Zulma Dolan MD [facility] [place] [address] Liz Poole PA [facility] [place] [address] 06/10/2022 Office Visit Dermatology Laura Scherer MD [facility] DR [address] [place], [place] 0[address] (Wo rk) documented as of [...] Organization Address City/State/[place] [address] CERNER MILLENNIUM documented in this encounter Visit Diagnoses Diagnosis Urinary retention - Primary Retention of urine, unspecified BPH (benign prostatic hyperplasia) Unspecified hyperplasia of prostate with out urinary obstruction and other lower urinary tract symptoms (LUTS) documented in this encounter Care Teams State Game Warden Relationship Specialty Start Date End Date Angela Holliday APRN PCP - General 01/25/13 04/15/[address] [place] [address] documented as of this encounter
--- OUTSIDE RECORDS SUMMARY | 2022-04-15 08:27 | XMS_ITS | Encounter Summary ---
:1945 Author Organization [facility] [place] [address] Care Team Providers Name Role Phone Angela Holliday APRN Primary Care Provider Encounter Details Date Type Department Care Team Description 04/05/2013 Office Visit Urology at [facility] [place] [address] Social History Tobacco Use Types Packs/Day Years Used Date Former Smoker Alcohol Use Standard Drinks/Week Comments No 0 (1 standard drink = 0.6 oz pure alcoho l) Sex Assigned at Date Recorded Not on file documented as of this encounter Plan of Treatment Upcoming Encounters Date Type Specialty Care Team Description 05/28/2022 Appointment Cardiology Zulma Dolan MD [facility] [place], [place] [address] (Wo rk) 05/28/2022 Laboratory Appointment Lab 05/28/2022 Office Visit Cardiology Zulma Dolan MD [place] [address] Liz Poole PA [facility] [place] [address] 06/10/2022 Office Visit Dermatology Laura Scherer MD [facility] [address]MAT [place], [place] [address] (Wo rk) documented as of this encounter Visit Diagnoses Not on filedocumented in this encounter Care Teams Supply Chain Director Relationship Specialty Start Date End Date Angela Holliday APRN PCP - General 01/25/13 04/15/[address] [place] [place] [address] documented as of this encounter
--- OUTSIDE RECORDS SUMMARY | 2022-04-15 08:29 | XMS_ITS | Encounter Summary ---
:1945 Author Organization [facility] Address [address] [place] [address] Care Team Providers Name Role Phone Lovely Vicente MD Primary Care Provider Encounter Details Date Type Department Care Team Description 04/04/2021 Lab Requisition [facility] Outr Resulting Lab, Pathology & Laboratory Provider [facility] [address] [place] [address] Social History Tobacco Use Types Packs/Day Years [...] Pathologist Sig nature Salmonella PCR Negative Negative [facility] SERVICES Shigella/Enteroinvasive Negative Negative [facility] E. coli LABORATORY SERVICES HN LAB CAMPYLOBACTER PCR Negative Negative [facility] LABOR[facility] SERVICES Shiga Toxin PCR Negative Negative [facility] Specimen Feces - Specimen from rectum (specimen) Performing Organization Address City/State/ZIP Code Phon e Number [facility] [address] [place] [address] SERVICES documented in this encounter Visit Diagnoses Not on filedocumented in this encounter Care Teams Pl Sql Programmer Relationship Specialty Start Date End Date Lovely Vicente MD PCP - General 07/13/14 documented as of this encounter
--- OUTSIDE RECORDS SUMMARY | 2022-04-15 08:29 | XMS_ITS | Encounter Summary ---
:[address] [facility] Address [address] [place] [address] Care Team Providers Name Role Phone Lovely Vicente MD Primary Care Provider Encounter Details Date Type Department Care Team Description 01/28/2022 Lab Requisition [facility] Outr Resulting Lab, Pathology & Laboratory Provider [facility] [address] [place] [address] Social History Tobacco Use Types Packs/Day Years Used Date Never Assessed Sex Assigned at Date Recorded Not on file documented as of this encounter Plan of Treatment Not on filedocumented as of this encounter Procedures Procedure Name Priority Date/Time Associated Diagnosis Comme nts COVID-19 TEST [facility] Today 01/27/2022 14:30 LAB PCR EDT COVID-19 TESTING Routine 01/27/2022 14:30 Results for this EDT procedure are i n the results section. documented in this encounter Results COVID-19 TEST [facility] LAB PCR (01/27/2022 14:30 EDT) Specimen Swab Performing Organization Address City/State/ZIP Code Phon e Number [facility] [address] [place] [address] SERVICES COVID-19 TESTING (01/27/2022 14:30 EDT) COVID-19 rt-PCR Negative Negative [facility] MEDICAL Result Comment: CENTER LABORATORY [...] was performed using the meliton SARS-CoV-2 assay ([employer] on the Meliton 6800 System Performing Lab [place] [address] [facility] Lab [facility] LABOR[facility]ORY SERVICES Specimen Swab Performing Organization Address City/State/ZIP Code Phon e Number [facility] [address] [place] [id number] SERVICES documented in this encounter Visit Diagnoses Not on filedocumented in this encounter Care Teams Pm Head Cook Relationship Specialty Start Date End Date Lovely Vicente MD PCP - General 07/13/14 documented as of this encounter
--- OUTSIDE RECORDS SUMMARY | 2022-04-15 08:29 | XMS_ITS | Encounter Summary ---
:1945 Author Organization Health system Address [address] [place] [address] Care Team Providers Name Role Phone Unknown, Provider Primary Care Provider Encounter Details Date Type Department Care Team Description 07/11/2014 Hospital Encounter [facility] Unknown, Provider, [facility] [address] [place] [address] [place] [address] (Work) [phone] Social History Tobacco Use Types Packs/Day Years Used Date Never Assessed Sex Assigned at Date Recorded Not on file documented as of this encounter Discharge Disposition Disposition Code Departure Means Destination Home or Self [facility] documented in this encounter Plan of Treatment Not on filedocumented as of this encounter Visit Diagnoses Not on filedocumented in this encounter Care Teams Counterintelligence Agent Relationship Specialty Start Date End Date Unknown, Provider, PCP - General 03/07/14 07/12/14 documented as of this encounter
--- OUTSIDE RECORDS SUMMARY | 2022-04-15 08:29 | XMS_ITS | Encounter Summary ---
:1945 Author Organization [facility] Address [address] [place] [address] Care Team Providers Name Role Phone Lovely Vicente MD Primary Care Provider Encounter Details Date Type Department Care Team Description 04/04/2021 Lab Requisition [facility] Outr Resulting Lab, Pathology & Laboratory Provider [facility] [address] [place] [address] Social History Tobacco Use Types Packs/Day Years [...] (04/03/2021 12:15 EDT) Giardia and Cryptosporidium Cryptosporidium [facility] Cryptosporidium Antigen Neg and Antigen Neg and CENTER Giardia Antigen Neg Giardia Antigen Neg LABORATORY SERVICES Specimen Feces - Specimen from rectum (specimen) Performing Organization Address City/State/ZIP Code Phon e Number [facility] [address] [place] [address] SERVICES documented in this encounter Visit Diagnoses Not on filedocumented in this encounter Care Teams Ultimate Hoops Trainer Relationship Specialty Start Date End Date Lovely Vicente MD PCP - General 07/13/14 documented as of this encounter
--- OUTSIDE RECORDS SUMMARY | 2022-04-15 08:29 | XMS_ITS | Encounter Summary ---
:[address] [facility] Address [address] [place] [address] Care Team Providers Name Role Phone Unavailable Primary Care Provider Unavailable Encounter Details Date Type Department Care Team Description 03/05/2014 Hospital Encounter [facility]- Heather Unknown, Provider, [facility] [place] 0 [facility] [phone] [place] [address] (Work) [phone] Social History Tobacco Use Types Packs/Day Years Used Date Never Assessed Sex Assigned at Date Recorded Not on file documented as of this encounter Discharge Disposition Disposition Code Departure Means Destination Home or Self [facility] documented in this encounter Plan of Treatment Not on filedocumented as of this encounter Visit Diagnoses Not on filedocumented in this encounter
--- OUTSIDE RECORDS SUMMARY | 2022-04-15 08:29 | XMS_ITS | Encounter Summary ---
:1945 Author Organization [facility] Address [address] [place] [address] Care Team Providers Name Role Phone Unknown, Provider Primary Care Provider Encounter Details Date Type Department Care Team Description 03/05/2014 Results Only [facility] Eris Taylor MD Laboratory Services - [address] [place] [address] [place] [address] [phone] Social History Tobacco Use Types Packs/Day Years [...] ? DON HOANG ? Accession #: ? [id number] ? : ? 1945 (Age: 68) ??M [...] Address City/State/ZIP Code Phon e Number [facility] [address] [place] [address] SERVICES [facility] [address] [place] [address] documented in this encounter Visit Diagnoses Not on filedocumented in this encounter Care Teams Retail Advertising Account Executive Relationship Specialty Start Date End Date Unknown, Provider, PCP - General 03/07/14 07/12/14 documented as of this encounter
--- OUTSIDE RECORDS SUMMARY | 2022-04-15 08:29 | XMS_ITS | Encounter Summary ---
:1945 Author Organization [facility] Address [address] [place] [address] Care Team Providers Name Role Phone Lovely Vicente MD Primary Care Provider Encounter Details Date Type Department Care Team Description 02/20/2022 Lab Requisition [facility] Outr Resulting Lab, Pathology & Laboratory Provider [facility] [address] [place] [address] Social History Tobacco Use Types Packs/Day Years [...] Pathologist Sig nature PSA 2.7 <=6.5 ng/mL [facility] Specimen Blood - Venous blood (substance) Narrative [facility] - 02/20/2022 18:17 EDT NOTE: Serum PSA concentration should not be in terpreted as absolute evidence for the presence or absence of malignant disease. Assayed on Siemens ADVIA Centaur XPT usi ng chemiluminescent technology.??Values obtained by using different assay methods cannot be used interchangeably. Performing Organization Address City/State/ZIP Code Phon e Number [facility] [address] [place] [address] SERVICES documented in this encounter Visit Diagnoses Not on filedocumented in this encounter Care Teams Tunnel Man Relationship Specialty Start Date End Date Lovely Vicente MD PCP - General 07/13/14 documented as of this encounter
--- OUTSIDE RECORDS SUMMARY | 2022-04-15 08:29 | XMS_ITS | Encounter Summary ---
:1945 Author Organization [facility] Address [address] [place] [address] Care Team Providers Name Role Phone Lovely Vicente MD Primary Care Provider Encounter Details Date Type Department Care Team Description 08/11/2019 Lab Requisition [facility] Unknown, Provider, Pathology & Laboratory [facility] [address] [facility] [place] [address] Social History Tobacco Use Types Packs/Day Years [...] (08/11/2019 14:35 EST) Giardia and Cryptosporidium Cryptosporidium [facility] Cryptosporidium Antigen Neg and Antigen Neg and CENTER Giardia Antigen Neg Giardia Antigen Neg LABORATORY SERVICES Specimen Feces - Specimen from rectum (specimen) Performing Organization Address City/State/ZIP Code Phon e Number [facility] [address] [place] [address] SERVICES documented in this encounter Visit Diagnoses Not on filedocumented in this encounter Care Teams Police Liaison Relationship Specialty Start Date End Date Lovely Vicente MD PCP - General 07/13/14 documented as of this encounter
--- OUTSIDE RECORDS SUMMARY | 2022-04-15 08:29 | XMS_ITS | Clinical Summary ---
:1945 Author Organization [facility] Address [address] [place] [address] Care Team Providers Name Role Phone Lovely [...] i n the results section. COVID-19 TEST [facility] Today 01/27/2022 14:30 LAB PCR EDT COVID-19 TESTING Routine 01/27/2022 14:30 Results for this EDT procedure are i n the results section. from Last 3 Months Results PSA TOTAL, DIAGNOSTIC (02/20/2022 9:04 EDT) Pathologist Sig nature PSA 2.7 <=6.5 ng/mL [facility] Specimen Blood - Venous blood (substance) Narrative [facility] - 02/20/2022 18:17 EDT NOTE: Serum PSA concentration should not be in terpreted as absolute evidence for the presence or absence of malignant disease. Assayed on Siemens ADVIA Centaur XPT usi ng chemiluminescent technology.??Values obtained by using different assay methods cannot be used interchangeably. Performing Organization Address City/State/ZIP Code Phon e Number [facility] [address] [place] [address] SERVICES COVID-19 TEST [facility] LAB PCR (01/27/2022 14:30 EDT) Specimen Swab Performing Organization Address City/[facility]/ZIP Code Phon e Number [facility] [address] [place] [address] SERVICES COVID-19 TESTING (01/27/2022 14:30 EDT) COVID-19 rt-PCR Negative Negative [facility] MEDICAL Result Comment: CENTER LABORATORY [...] performed using the meliton SARS-CoV-2 assay ([employer] on the Meliton 6800 System Performing Lab Meliton 6800 [facility] Lab [facility] SERVICES Specimen Swab Performing Organization Address City/[facility]/ZIP Code Phon e Number [facility] [address] [place] [address] SERVICES from Last 3 Months Care Teams Chemical Dependency Attendant Relationship Specialty Start Date End Date Lovely Vicente MD PCP - General 07/13/14
--- OUTSIDE RECORDS SUMMARY | 2022-04-15 08:29 | XMS_ITS ---
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 Problem Critical ischemia I99.8 Active of lower extremity Problem Atherosclerosis I70.90 Active 3871 6007 Problem Type 2 diabetes E11.628 Active mellitus with other skin complications Problem 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 40 ; Acquired deformi ty of right foot M21.961 ; L luis term current use of i nsulin Z79.4 ; History of art erial bypass of lower extremi ty Z95.828 ; Atherosclerosis I70.90 and History of Lisfr anc amputation of fo ot Z89.439 [facility] Feb, Type 2 diabet es mellitus [address] [place] with diabe tic neuropathy, [address] unspecified E11. 40 ; Acquired deformi ty of right foot M21.961 ; L luis term current use of i nsulin Z79.4 ; History of art erial bypass of lower extremi ty Z95.828 ; Atherosclerosis I70.90 and History of Lisfr anc amputation of fo ot Z89.439 [facility] November, [place] [address] [facility] [facility] November, Type 2 [place] [address] with diabeti c neuropathy, unspecified E11. 40 ; Acquired deformi ty of right foot M21.961 ; L luis term current use of i nsulin Z79.4 ; History of art erial bypass of lower extremi ty Z95.828 ; Atherosclerosis I70.90 and History of Lisfr anc amputation of fo ot Z89.439 [facility] 10 Aug, 2019 Type 2 [place] [address] with other skin complications E1 1.628 ; Tinea pedis of l eft foot B35.3 ; Type 2 d iabetes mellitus with di abetic neuropathy, unsp ecified E11.40 ; Acquire d deformity of right foot M2 1.961 ; assisted current use of insulin Z79.4 ; History of arterial bypass of lower extremity Z95.828 and Athe rosclerosis I70.90 [facility] Jun, [place] [address] [address] Jun, [place] [address] [address] Jun, Type 2 diabet es mellitus [place], [place] with other skin [address] complications E1 1.628 ; Acquired deformi ty of right foot M21.961 ; T ype 2 diabetes mellitu s with diabetic neuropa thy, unspecified E11. 40 ; terminal superintendent current use of insulin Z79.4 and Histor y of arterial bypass of lower extremity Z95.82 8 [facility] [address] [facility] Feb, Type 2 [place] [address] with other s kin complications E1 1.628 ; Acquired deformi ty of right foot M21.961 ; T ype 2 diabetes mellitu s with diabetic neuropa thy, unspecified E11. 40 ; assisted current use of insulin Z79.4 and Histor y of arterial bypass of lower extremity Z95.82 8 [facility] November, Tinea pedis o f left foot [place], [place] B35.3 ; Ty pe 2 diabetes [address] mellitus with ot her skin complications E1 1.628 ; Acquired deformi ty of right foot M21.961 ; T ype 2 diabetes mellitu s with diabetic neuropa thy, unspecified E11. 40 ; terminal superintendent current use of insulin Z79.4 and Histor y of arterial bypass of lower extremity Z95.82 8 [facility] 8 [facility] November, [place] [address] [address] Aug, Type 2 diabet es mellitus [place], [place] with diabe tic neuropathy, [address] unspecified E11. 40 ; Acquired deformi ty of right foot M21.961 ; P eripheral arterial disease I73.9 ; History of arter ial bypass of lower extremi ty Z95.828 ; assisted curren t use of insulin Z79.4 an d History of Lisfranc amputat ion of foot Z89.439 UNKNOWN Jul, [facility] 11 Jun, 2018 Type 2 [place] [address] with diabeti c neuropathy, unspecified E11. [address] Apr, Edema of both legs R60.0 ; [place], [place] Acquired d eformity of right [address] foot M21.961 ; P eripheral arterial disease I73.9 ; History of arter ial bypass of lower extremi ty Z95.828 ; terminal superintendent curren t use of insulin Z79.4 an d Type 2 diabetes mellitu s with diabetic neuropa thy, unspecified E11. [address] [facility] Mar, [place] [address] [address] Mar, Edema of both legs R60.0 ; [place] Acquired d eformity of right [address] foot M21.961 ; P eripheral arterial disease I73.9 ; History of arter ial bypass of lower extremi ty Z95.828 ; terminal superintendent curren t use of insulin Z79.4 an d Type 2 diabetes mellitu s with diabetic neuropa thy, unspecified E11. 40 [facility] Feb, Edema of both legs R60.0 ; [place] [address] Ulcer of lef t calf, limited to breakdown of skin L97.221 ; Acquired defor mity of right foot M21.9 61 ; Peripheral arter ial disease I73.9 ; History of arterial bypass of lower extremity Z95.828 ; Long t erm current use of insulin Z 79.4 and Type 2 diabetes mellitus with diabetic ne uropathy, unspecified E11. 40 [facility] 1 Feb, [place] [address] [facility] Feb, Edema of both legs R60.0 ; [place] [address] Ulcer of rig ht calf, limited to [...] uropathy, unspecified E11. 40 [facility] [address] [facility] Feb, [place] [address] [facility] [address] [facility] Feb, [place] [address] [facility] Jan, [place] [address] [facility] Jan, [place] [address] [facility] [address] Jan, [place] [address] [facility] [address] [facility] Jan, [place] [address] [facility] [address] [facility] [place], [place] [address] [facility] [address] [facility] Dec, [place] [address] [facility] [address] [facility] Dec, [place] [address] [facility] Dec, [place] [address] [facility] Dec, [place] [address] [facility] [address] [facility] Dec, [place] [address] [facility] [address] [facility] Dec, [place] [address] [facility] [address] [facility] [place], [place] [address] [facility] [address] [facility] November, [place] [address] [facility] [address] [facility] November, [place] [address] [facility] [address] [facility] November, [place] [address] [facility] November, [place] [address] [facility] November, [place] [address] UNKNOWN November, [facility] [address] November, OFFICE [place] [address] [facility] November, [place] [address] [facility] Oct, [place] [address] [facility] Oct, [place] [address] [facility] Oct, [place] [address] [facility] [address] [place] 18 Oct, 2017 [place] [address] [facility] 16 Oct, 2017 [place] [address] [facility] [place] 16 Oct, 2017 [facility] [address] [facility] Oct, [place] [address] [facility] Oct, [place] [address] [facility] Oct, [place] [address] [facility] [place] Sep, [facility] [address] [facility] Sep, [place] [address] [facility] [address] [place] Sep, [place] [address] [facility] [place] Sep, [place] [address] [facility] [address] [place] Sep, [place] [address] [facility] [place] Sep, Critical ischemi a of lower [place] [address] extremity I 99.8 ; Local infection of the skin and subcutaneous tis lindsey, unspecified L08. 9 and Type 2 diabetes mellitu s with other skin complicatio ns E11.628 [facility] Sep, [place] [address] [facility] [address] [facility] Sep, [place] [address] [facility] [address] [facility] Sep, [place] [address] [facility] [address] [facility] 14 Sep, [address] [place] [address] [facility] Sep, [place] [address] [facility] Sep, [place] [address] [facility] [address] [facility] Sep, [place] [address] [facility] Sep, [place] [address] [facility] Aug, [place] [address] [facility] [address] [place] Aug, [facility] [address] [facility] [facility] [place] Aug, [place] [address] SURG[facility] Aug, [place] [address] SURG[facility] Aug, [place] [address] [facility] Aug, [place] [address] ORTHOPEDIC OFFICE [facility] Aug, Pre-op exam Z01.818 [place] [address] [facility] Aug, [place] [address] [facility] Aug, [place] [address] [facility] Aug, [place] [address] IMMUNIZATIONS No Known Immunizations SOCIAL HISTORY Qualifiers [...] subcutaneously 22 24h Active units/mL daily [place] Active Ciclopirox Externally Twice 1 application 12h [...] For Report MR Lower Ext R w/o ([id number]) 2017-09-16 See Below For Report CR C-ARM [...] 03/04/18 - 6.7, [facility] annually, f/u - bilateral leg edema, Pt [...] at wound center,lab work done 03/07/2018 @ [facility], Patient came in with tubigrip bilateral , wound clin est, wound clinest, Wound CTR-follow up, Wound CTR-follow up, Wound CTR-follow up, Peer to Peer w/ Dr. Espino, Wound CTR-follow up, Wound CTR-follow up, Truck Switcher Documentation, LAB, Wound CTR-follow up, Wound CTR-follow up, Wound CTR-follow up, Wound CTR-follow up, LAB, LAB, Wound CTR- follow up, Wound CTR-follow up, Wound CTR-follow up, Truck Switcher Documentation, [facility], Wound CTR-follow up, Wound CTR-follow up, Pull PICC Line, Wound CTR-follow up, Wound CTR-follow up, LAB, Still taking doxycycline 100mg? , Wound CTR-follow up, Wound CTR-follow up, Wound CTR-follow up, Truck Switcher Documentation, Wound CTR-follow up, Wound CTR-follow up, Call back, Truck Switcher Documentation, Truck Switcher Documentation, Truck Switcher Documentation, Wound CTR-follow up, WCC, Wound CTR-follow up, Wound CTR-follow up, labs, D/C planning, bailey smetatarsal amputation of right foot, LAB, LAB, Wound CTR-NEW Insurance Providers [facility] Health Member Patient Patient Patient Patient Patient Subscriber Subscriber Subscriber Group Insurance Plan Plan Plan Plan ID Relationship Address Phone Name Date of ID Name Date of No Type Insurance Insurance Insurance Coverage to Subscriber Address Phone Name Dates MEDICARE [address] MEDICARE self [place] [id number] [facility] [id number] S-BLUE [phone] S-BLUE [place] [id number] [address] [place] [address] [place] OTHER 29 [place] [phone] OTHER [place] [id number] GRANT 1^MAIN CONSTITUTION PARTY COUSHATTA PAYOR [place] PA[place] [id number] SELF PAY [address] SELF PAY self [place] [id number] AFTER BLUE [place] AFTER BLUE [facility] [id number] [place]
--- OUTSIDE RECORDS SUMMARY | 2022-04-15 08:29 | XMS_ITS | Encounter Summary ---
:1945 Author Organization [facility] Address [address] [place] [address] Care Team Providers Name Role Phone Lovely Vicente MD Primary Care Provider Encounter Details Date Type Department Care Team Description 01/17/2021 Lab Requisition [facility] Outr Resulting Lab, Pathology & Laboratory Provider [facility] [address] [place] [address] Social History Tobacco Use Types Packs/Day Years [...] nature PSA 2.9 0.0 - 6.5 ng/mL [facility] Specimen Blood - Venous blood (substance) Narrative [facility] - 01/17/2021 17:46 EDT NOTE: Serum PSA concentration should not be in terpreted as absolute evidence for the presence or absence of malignant disease. Assayed on Siemens ADVIA Centaur XPT usi ng chemiluminescent technology.??Values obtained by using different assay methods cannot be used interchangeably. Performing Organization Address City/State/ZIP Code Phon e Number [facility] [address] [place] [address] SERVICES documented in this encounter Visit Diagnoses Not on filedocumented in this encounter Care Teams Testing And Regulating Technician Relationship Specialty Start Date End Date Lovely Vicente MD PCP - General 07/13/14 documented as of this encounter
--- OUTSIDE RECORDS SUMMARY | 2022-04-15 08:29 | XMS_ITS | Encounter Summary ---
:1945 Author Organization [facility] Address [address] [place] [address] Care Team Providers Name Role Phone Lovely Vicente MD Primary Care Provider Encounter Details Date Type Department Care Team Description 08/11/2019 Lab Requisition [facility] Unknown, Provider, Pathology & Laboratory [facility] [address] [facility] [place] [address] Social History Tobacco Use Types Packs/Day Years [...] nature Salmonella PCR Negative Negative [facility] Shigella/Enteroinvasive Negative Negative [facility] R E. coli LABORATORY SERVICES HN LAB CAMPYLOBACTER PCR Negative Negative [facility] ER LABORATORY SERVICES Shiga Toxin PCR Negative Negative [facility] Specimen Feces - Specimen from rectum (specimen) Performing Organization Address City/State/ZIP Code Phon e Number [facility] [address] [place] [address] SERVICES documented in this encounter Visit Diagnoses Not on filedocumented in this encounter Care Teams Raw Silk Grader Relationship Specialty Start Date End Date Lovely Vicente MD PCP - General 07/13/14 documented as of this encounter
--- OUTSIDE RECORDS SUMMARY | 2022-04-17 08:18 | XMS_ITS | Encounter Summary ---
:1945 Author Organization [facility] [address] Care Team Providers Name Role Phone Lovely Vicente MD Primary Care Provider Encounter Details Date Type Department Care Team Description 03/26/2022 Office Visit Cardiology at [facility] Vitaliy Nobles MD Chronic systolic heart failure; [facility] ONE MEDICAL ASCVD (ar teriosclerotic cardiovascular disease); [facility] Cardiomyopathy, ischemic [place], [place] CARDIOLOGY [address] [place] [address] [phone] Social History Tobacco Use Types Packs/Day Years [...] were not included. [facility] [place] [address] CARDIOLOGY OUTPATIENT CLINIC VISIT [facility] Don Mccollum Kushal 03/26/2022 Referring Providers: MD Jules Cr Joyce, MD [address] [place] [address] CHIEF COMPLAINT: I am doing well CARDIAC-RELEVANT [...] using a 2.0 x 26 mm ORION [place] TUCKER stent. This completes therevascularization of all [...] in [address] Lovely Vicente MD [address] [place] [id number] HISTORY OF PRESENT ILLNESS: Don Fatima is [...] using a 2.0 x 26 mm ORION [place] TUCKER stent. This completes the revascularization of [...] 12.71) performed by Yonathan Smith MD at [facility] OR ??? PRO CABG, ARTERIAL, SINGLE N/A 07/07/2017 @CABG, USING ARTERIAL GRAFT;SINGLE ARTERIAL GRAFT (WRVU 33.75) performed by Yuan Retana MD at [facility] OR ??? PRO CABG, ARTERY-VEIN, TWO N/A 07/07/2017 @CABG, TWO VENOUS GRAFTS & ARTERIAL GRAFT (WRVU 7.93) performed by Yuan Retana MD at [facility] OR ??? PRO COLONOSCOPY, [...] using a 2.0 x 26 mm ORION [place] TUCKER stent. This completes the revascularization of [...] Sincerely, Dr. Vitaliy Nobles MD [facility] Mental Hygiene Consultant Interventional Cardiology 03/26/2022 CC: Lovely Vicente MD [...] per DC Summary - Admitted to [facility] on 12/08/21, transferred from [facility], respiratory distress with hypoxia 86% [...] his PCP. He started [facility] rehab in [facility]. Monitored vitals/trends at home: Weight 191-194 [...] Antiplatelet (DAPT) Recommendations above ? TTE from [facility] 12/08/21 ?? 07/28/2019 Echocardiogram: SUMMARY: 1. [...] regurgitation present. 07/07/2019 - 07/21/2019 Zio Patch Brake Drum Lathe Operator The patient had a minimum heart [...] 12.5 mg daily 6. Post-op atrial fibrillation [id number] (CHF, HTN, DM, vascular disease, thromboembolism) [...] MD [facility] I[place] 0[address] (Wo rk) 05/28/2022 Laboratory Appointment Lab 05/28/2022 Office Visit Cardiology Zulma Dolan MD [facility] [place] [address] Liz Poole PA [facility] [place] [address] 06/10/2022 Office Visit Dermatology Laura Scherer MD [facility] [address] [employer] [employer], [place] [address] (Wo rk) documented as [...] [address] [place] [address] documented as of this encounter
--- OUTSIDE RECORDS SUMMARY | 2022-04-17 08:18 | XMS_ITS | Encounter Summary ---
:1945 [place] [address] Care Team Providers Name Role Phone Lovely Vicente MD Primary Care Provider Reason for Visit Reason Onset Date Comments Follow-up 03/06/2022 Dave Bueno Encounter Details Date Type Department Care Team Description 03/06/2022 Telephone Cardiology at [facility] Martha Comer, Follow-up ([facility] VAM[facility] Start) [place] [address] Social History Tobacco Use Types Packs/Day [...] pt had gotten his labs done at [facility] yesterday. Results received, scanned and [...] Zulma Dolan MD [facility] [address] [place], [place] [address] (Wo rk) 05/28/2022 Laboratory Appointment Lab 05/28/2022 Office Visit Cardiology Zulma Dolan MD [facility] [place] [address] [facility] [place] [address] 06/10/2022 Office Visit Dermatology Laura Scherer MD [facility] DR [address]MAT [place], [place] 0[address] (Wo rk) documented as of [...] filedocumented in this encounter Care Teams Cat Scan Technologist Relationship Specialty Start Date End Date Lovely Vicente MD PCP - General 04/16/[address] [place] [address] documented as of this encounter
--- OUTSIDE RECORDS SUMMARY | 2022-04-17 08:18 | XMS_ITS | Encounter Summary ---
:1945 Author Organization [place] [address] Care Team Providers Name Role Phone Lovely Vicente MD Primary Care Provider Reason for Visit Reason Onset Date Comments Medication Refill 03/11/2022 Encounter Details Date Type Department Care Team Description 03/06/2022 Refill Cardiology at [facility] Liz Poole PA Medication Refill [facility] Jorge mcnamara [facility] [place] [address] Cardiology Dept [phone] [place], [place] 0375 (Wo rk) Social History Tobacco [...] MD [facility] er [address] [place], [place] [address] (Wo rk) 05/28/2022 Laboratory Appointment Lab 05/28/2022 Office Visit Cardiology Zulma Dolan MD [facility] [place] [address] Liz Poole PA [facility] [place] [address] 06/10/2022 Office Visit Dermatology Laura Scherer MD [facility] ER DR TE[address] GR[address]MAT [place], [place] 0[address] (Wo rk) documented as of this encounter Visit Diagnoses Not on filedocumented in this encounter Care Teams Swine Genetics Researcher Relationship Specialty Start Date End Date Lovely Vicente MD PCP - General 04/16/[address] [place] [address] documented as of this encounter
--- OUTSIDE RECORDS SUMMARY | 2022-04-17 08:18 | XMS_ITS | Encounter Summary ---
:1945 [place] [address] Care Team Providers Name Role Phone Lovely Vicente MD Primary Care Provider Reason for Visit Reason Onset Date Comments Follow-up 02/26/2022 Entresto start Encounter Details Date Type Department Care Team Description 02/26/2022 Telephone Cardiology at [facility] Martha Comer, Follow-up ([facility] RN start) [place] [address] Social History Tobacco Use Types Packs/Day [...] 03/05/22 Getting labs done at : [facility] Order e-faxed by STEPHANIE Poole on 02/24/22. /pt to call on 03/05/22 letting us know to get the BMP results from [facility]. Nursing to get results and contact pt to see how he is tolerating the Entresto. They are to call sooner with any questions/concerns. documented in this encounter Plan of Treatment Upcoming Encounters Date Type Specialty Care Team Description 05/28/2022 Appointment Cardiology Zulma Dolan MD [facility] [place], [place] 0[address] (Wo rk) 05/28/2022 Laboratory Appointment Lab 05/28/2022 Office Visit Cardiology Zulma Dolan MD [facility] [place] [address] [facility] [place] [address] 06/10/2022 Office Visit Dermatology Laura Scherer MD [facility] [address] [place], [place] 0[address] (Wo rk) documented as of this encounter Visit Diagnoses Not on filedocumented in this encounter Care Teams Forging Dies Final Finisher Relationship Specialty Start Date End Date Lovely Vicente MD PCP - General 04/16/[address] [place] [address] documented as of this encounter
--- OUTSIDE RECORDS SUMMARY | 2022-04-17 08:18 | XMS_ITS | Encounter Summary ---
:1945 Author Organization [facility] Address [place] [address] Care Team Providers Name Role Phone Lovely Vicente MD Primary Care Provider Reason for Visit Reason Onset Date Comments Medication Refill 04/09/2022 Jardiance Encounter Details Date Type Department Care Team Description 04/09/2022 Refill Cardiology at [facility] Liz Poole PA [facility]ication [facility] [place] [address] Cardiology Dept [phone] [place], [place] 0375 (Wo rk) Social History Tobacco [...] MD [facility] er [address] [place] 0375 (Wo rk) 05/28/2022 Laboratory Appointment Lab 05/28/2022 Office Visit Cardiology Zulma Dolan MD [facility] [place] [address] Liz Poole PA [facility] [place] [address] 06/10/2022 Office Visit Dermatology Laura Scherer MD [facility] ER DR [address]MAT [place], [place] [address] (Wo rk) documented as of this encounter Visit Diagnoses Diagnosis Chronic systolic heart failure documented in this encounter Care Teams Hospitality Services Manager Relationship Specialty Start Date End Date Lovely Vicente MD PCP - General 04/16/[address] [place] [address] documented as of this encounter
--- OUTSIDE RECORDS SUMMARY | 2022-04-17 08:18 | XMS_ITS | Encounter Summary ---
:1945 Author Organization [facility] [place] [address] Care Team Providers Name Role Phone Lovely Vicente MD Primary Care Provider Reason for Visit Reason Comments Medication Refill Encounter Details Date Type Department Care Team Description 04/07/2022 Refill Cardiology at [facility] [place] Janneth Padilla PA Medication Refill [facility] [place] [address] CARDIOLOGY DEPT. [phone] [place], [place] 0375 (Wo rk) Social History Tobacco [...] [facility] er [place], [place] [address] (Wo rk) 05/28/2022 Laboratory Appointment Lab 05/28/2022 Office Visit Cardiology Zulma Dolan [place] [address] Liz Poole PA [facility] [place] [address] 06/10/2022 Office Visit Dermatology Laura Scherer MD [facility] DR [address] [place], [place] [address] (Wo rk) documented as of this encounter Visit Diagnoses Not on filedocumented in this encounter Care Teams Plant Tender Relationship Specialty Start Date End Date Lovely Vicente MD PCP - General 04/16/[address] [place] [address] [address] [place] [address] documented as of this encounter
--- OUTSIDE RECORDS SUMMARY | 2022-04-17 08:18 | XMS_ITS | Encounter Summary ---
:1945 Author Organization [facility] Address [facility] [place] [address] Care Team Providers Name Role Phone Lovely Vicente MD Primary Care Provider Reason for Visit Reason Onset Date Comments Medication Refill 03/06/2022 Metoprolol Succinate Encounter Details Date Type Department Care Team Description 03/06/2022 Refill Cardiology at [facility] Liz Poole PA Medication Refill [facility] (Hi toprolol Succinate) [place] [address] Cardiology Dept [phone] [place], [place] [address] (Wo rk) Social History Tobacco [...] MD [facility] er [place], [place] [address] (Wo rk) 05/28/2022 Laboratory Appointment Lab 05/28/2022 Office Visit Cardiology Zulma Dolan MD [facility] [place] [address] Liz Poole PA [facility] [place] [address] 06/10/2022 Office Visit Dermatology Laura Scherer MD [facility] ER DR [address]DERMAT [place], [place] [address] (Wo rk) documented as of this encounter Visit Diagnoses Diagnosis Chronic systolic heart failure Cardiomyopathy, ischemic Other specified forms of chronic ischemi c heart disease documented in this encounter Care Teams Meat Puller Relationship Specialty Start Date End Date Lovely Vicente MD PCP - General 04/16/[address] [place] [address] documented as of this encounter
--- OUTSIDE RECORDS SUMMARY | 2022-04-17 08:18 | XMS_ITS | Clinical Summary ---
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; [...] Dolan MD [facility] er Dr [place] 0[address] (Wo rk) 05/28/2022 Laboratory Appointment Lab 05/28/2022 Office Visit Cardiology Zulma Dolan MD [facility] [place] [address] Liz Poole PA [facility] [place] [address] 06/10/2022 Office Visit Dermatology Laura Scherer MD [facility] ER DR [address] [place], [place] 037 (Wo rk) Health Maintenance Due Date Last Done Comments Covid-19 Vaccine (#1) 1950 Pneumoccocal Vaccine: 65+ (1 - PCV) 1952 Hepatitis C Screening 1964 Tdap adult 1965 Tetanus vaccine 1965 Zoster vaccine (1 of 2) 1996 Colonoscopy 01/16/2019 01/16/2014, 01/16/2014 Influenza (Flu) vaccine (1 of - 03/26/2022 03/29/2013, Influenza standard series) Medical Devices Implanted Type Area Real Estate Attorney Device Shelf Model / Identifier Expiration Serial / Date Lot Cable,Cut,Edg,Blnt,Ss,3tpr ([id number]) - [id number] IMPLANTS Midline: [employer] 04/01/2022 [id number] / Implanted: Qty: 4 on 07/07/2017 by Yuan Retana MD at [facility] Sternum TECHNOLOGY - / [id number] Procedures Procedure Name Priority Date/Time Associated Diagnosis [...] Time Signature WBC 7.2 4.0 - 9.5 [facility] x10(3)/[facility] LABORATORY RBC 4.41 (L) 4.58 - [facility] 5.[address] [facility] x10(6)/[facility] LABORATORY Hemoglobin 13.2 (L) 13.7 - [place] 16.5 g/dL [facility] LABORATORY Hematocrit 40.9 40.5 - [place] [facility] 48.5 % [facility] LABORATORY MCV 92.7 82.9 - [facility] 93.1 [facility] LABORATORY MCH 29.9 27.5 - [place] [facility] 32.1 pg [facility] LABORATORY MCHC 32.3 32.0 - [place] [facility] 35.7 g/dL [facility] LABORATORY Platelets 191 145 - 357 [facility] x10(3)/[facility] LABORATORY RDWSD 53.6 (H) 36.0 - [place] [facility] 45.0 [facility] LABORATORY RDWCV 15.6 (H) 11.4 - [place] [facility] 13.8 % [facility] LABORATORY MPV 8.7 7.6 - 12.9 [facility] LABORATORY nRBC % Auto 0.0 % [facility] LABORATORY nRBC Abs Auto 0.000 0.000 - [facility] 0.[address] [facility] x10(3)/[facility] LABORATORY Specimen Anatomical Collection Method Collection Time Receive d Time (Source) Location / / Volume Laterality Blood 02/19/2022 8:06 AM 8:09 EDT AM EDT Resulting Agency Comment Spec In Lab Liz BROWN HEMATOLOGY ORDERABLES Performing Organization Address City/State/[place] [address] (ABNORMAL) Differential, Automated (02/19/2022 8:06 AM EDT)Only the most recent of3 resultswithin the time period is included. [facility] Method Time Signature Neutrophils % 76.0 % [facility] LABORATORY Neutr Abs (ANC) 5.49 1.70 - [facility] [address] [facility] x10(3)/[facility] LABORATORY Lymphocytes % 10.8 % [facility] LABORATORY Lymphocytes Abs 0.8 (L) 0.9 - 3.2 [facility] x10(3)/[facility] LABORATORY Monocytes % 10.2 % [facility] LABORATORY Monocyte Abs 0.7 0.3 - 0.9 [facility] x10(3)/[facility] LABORATORY Eosinophils % 1.2 % [facility] LABORATORY Eosinophils Abs 0.1 0.0 - 0.4 [facility] x10(3)/[facility] LABORATORY Basophils % 0.8 % [facility] LABORATORY Basophils Abs 0.1 0.0 - 0.1 [facility] x10(3)/[facility] LABORATORY Immature [...] Liz BROWN HEMATOLOGY ORDERABLES Performing Organization Address City/[facility]/[place]IP [place] [address] (ABNORMAL) pro-Brain Natriuretic Peptide (02/19/2022 8:06 AM EDT) P athologist Signature ProBNP 984 (H) <=449 pg/mL [facility] LABORATORY Specimen Anatomical Collection Method Collection Time Receive d Time (Source) Location / / Volume Laterality Blood 02/19/2022 8:06 AM 2 8:09 EDT AM EDT Resulting Agency Comment Spec In Lab Zulma Plunkett MD CHEMISTRY ORDERABLES Performing Organization Address City/[facility]/[place]IP [place] [address] POCT Glucose (01/30/2022 1:41 PM EDT)Only the most recent of4 resultswithin the time period is included. P athologist Signature POC Glucose 148 65 - 199 [facility] mg/dL [facility] [...] City/[facility]/ZIP Code Phon e Number [address] EKG 12 Lead (01/30/2022 10:33 AM EDT) Component Value Ref Range Test Analysis Performed Pathologis t Method Time At Signature Ventricular rate 64 BPM MUSE SYSTEM Atrial Rate 64 BPM MUSE SYSTEM P-R Interval 162 ms MUSE SYSTEM QRS Duration 94 ms MUSE SYSTEM Q-T Interval 422 ms MUSE SYSTEM QTC Calculated 435 ms MUSE SYSTEM (Bezet) Calculated P [place] 41 degrees MUSE SYSTEM Calculated R [place] -27 degrees MUSE SYSTEM Calculated T [place] 104 degrees MUSE SYSTEM INTERPRETATION Normal sinus rhythm MUSE SYSTEM Anterolateral infarct (cited on or before 09-DEC-2021) Abnormal ECG When compared with ECG of 10-DEC-2021 11:17, No significant change was found Confirmed by Gary Perez ([id number]) on 01/30/2022 5:57:5 2 PM Specimen Anatomical [...] Laterality Volume Narrative 01/30/2022 2:09 PM EDT ?[facility] ? Cardiac Cathete rization/Intervention Report ? Patient Name: Génesis Fatimarory Mccollum. ? Procedure Date: 01/30/2022 ? A #: [id number] ? Primary Physician: Nobles, Vitaliy P ? Case #: [id number] ? File Name: [id number] ? Catheterization Order Number: [id number] ? [facility] ? Final Report [place], [place] ? Patient Name: ? Don E. Stewa rt ? ID#: ?[id number] ? : ?1945 ? Procedure Date: ? [...] patient was ?designated as ASA Class III. [facility] clinical frailty scale is 5: Mildly ?Frail. [...] procedure was Urgent. The indication for ?the starch factory laborer visit is stable kn own CAD. [...] Iso-Rudy were a dministered and 26cc of Iso-Rduy were ?wasted. Radiation: Fluoro time was 19.9 [...] guiding catheter an d a 3.[address] [place] [address] ??20 Mhz ?using Manual pullback. ??Imagin [...] A premounted 2.00 x 26 mm Hardeep [place] (TUCKER) ? was deployed wi th a [...] Wedelivered along 2.0 x 26 mm HARDEEP Perkins ? TUCKER stent and p ositioned it [...] dose administered prior to arrival in the starch factory laborer. ?Recommended anti-platelet/anti- thrombotic regimen: ?Continue aspirin [...] require ?modification of this regimen. C onsult [facility] Interventional Cardiology for ?questions. [...] using a 2.0 x 26 mm HARDEEP [place] TUCKER stent. ?This completes the revasculariz ation [...] Procedure Note Vitaliy Nobles MD - 03/06/2022 [facility] Cardiac Catheterization/Intervention Re port Patient Name: Don Fatima Procedure Date: 01/30/2022 A #: [id number] Primary Physician: Vitaliy Nobles Case #: [id number] File Name: [id number] Catheterization Order Number: [id number] [facility] [employer] Final Report [place], [place] Patient Name: Don Fatima ID#: [...] e was Urgent. The indication for the starch factory laborer visit is stable known CAD. Chest pain symptom assessment was: Typical Angina. Technique: A 6 SLFr sheath was inserted in the [facility] radial artery utilizing the Seldinger [...] 1.5 guiding catheter and a 3.[address] 20 Mhz using Manual pullback. Imaging [...] A premounted 2.00 x 26 mm Hardeep Perkins (TUCKER) was deployed with a maximum inflation [...] along 2. 0 x 26 mm HARDEEP Perkins TUCKER stent and positioned it at the [...] administered prior t o arrival in the starch factory laborer. Recommended anti-platelet/anti-thrombot ic regimen: Continue aspirin [...] using a 2.0 x 26 mm HARDEEP Perkins TUCKER stent. This completes the revascularization of [...] T ype Group Dates MEDICARE MEDICARE PART [id number] 2011-Prese [phone] [place] [address] [employer] [place] [place] V[place] [id number] 2018-Prese [phone] [address] [place] [address] [place] [address] Advance Directives Documents on File Type Date Recorded Patient Edger Saw Operator Explanati on Advance Directives and Living [...] capacity to make decision: Yes Care Teams Shearing Machine Operator Relationship Specialty Start Date End Date Lovely Vicente MD PCP - General 04/16/[address] [place] [address]
--- OUTSIDE RECORDS SUMMARY | 2022-04-17 08:19 | XMS_ITS | Encounter Summary ---
:1945 Author Organization [facility] [address] Care Team Providers Name Role Phone Lovely Vicente MD Primary Care Provider Encounter Details Date Type Department Care Team Description 12/12/2021 Telephone Cardiology [place] [facility] [place] [address] Social History Tobacco Use Types Packs/Day [...] - 12/12/2021 11:36 AM EDT RTC to [facility] regarding pharmacists questions as to whether the [...] MD [facility] [address] [place] [address] (Wo rk) 05/28/2022 Laboratory Appointment Lab 05/28/2022 Office Visit Cardiology Zulma Dolan MD [facility] [place] [address] Liz Poole PA [facility] [place] [address] 06/10/2022 Office Visit Dermatology Laura Scherer MD [facility] DR [address] [place], [place] [address] (Wo rk) documented as of this encounter Visit Diagnoses Not on filedocumented in this encounter Care Teams Customs Inspector Relationship Specialty Start Date End Date Lovely Vicente MD PCP - General 04/16/[address] [place] [address] documented as of this encounter
--- OUTSIDE RECORDS SUMMARY | 2022-04-17 08:19 | XMS_ITS | Encounter Summary ---
:1945 Author Organization [facility] Address [facility] [place] [address] Care Team Providers Name Role Phone Lovely Vicente MD Primary Care Provider Reason for Visit Auth/Cert Specialty Diagnoses / Procedures Referred By Contact Refer red To Contact Diagnoses ASCVD (arteriosclerotic cardiovascular disease) [I25.10] Vitaliy Nobles MD [facility] Procedures PRO PERC TRLUML CORONARY STENT W/ANGIO ONE ART/BRANCH CARDIAC CATHETERIZATION STENT PLACEMENT-SINGLE MAJOR CORONARY ARTERY OR BRANCH [facility] [place] [address] Referral ID Status Reason Start Date Expiration Date Visits Requ ested Visits Authorized [id number] 1 1 Encounter Details Date Type Department Care Team Description 01/30/2022 Surgery Ship Engineer Asa Coulter MD CARDIAC CATHETERIZATION [facility] [place] [address] [place] [address] [phone] (Wo rk) Social History Tobacco Use Types [...] and Clopidogrel. Please follow up with your editor index in the next 4-6 weeks. We have made a referral to cardiac rehab. Please see the attached instructions regarding care to your right wrist access site. AttachmentsThe following attachments cannot be sent through Care Everywhere. Coronary Angiogram: Post-op (Surinamese)documented in this encounter Medications at Time of [...] J, RN - 01/30/2022 4:[address] [facility] Short Stay Unit Discharge Note All [...] documented in this encounter H&P Notes Eddi Elizbaeth Jr., MD - 01/30/2022 7:42 AM EDT Images from the original note were not included. Don Fatima is a 76 y.o. male referred for cardiac catheterization for staged PCI. In brief, 76 yo gentleman w/ a pmh sig for STEMI s/p CABG 06/2017, HFrEF-35%, DM2, HTN, DLD, GERD, and recent PCI presenting for staged PCI to [facility]. The pt states he has [...] recent PCI presenting for staged PCI to [facility]. The indications, expected benefits, and [...] not included. [facility] [place] [address] CORONARY ANGIOGRAM AND PERCUTANEOUS CORONARY INTERVENTION REPORT Patient: Don Fatima : 1945 MR number: [id number] Date of Service: 01/30/2022 Blanking Press Operator: Vitaliy Nobles MD Fellow: KEYON Elizabeth [...] a long 2.0 x 26 mm HARDEEP Kingston TUCKER stent and positioned it at the [...] using a 2.0 x 26 mm HARDEEP Kingston TUCKER stent. This completes the revascularization ofall [...] [facility] [place] [address] [place] [address] (Wo rk) 05/28/2022 Laboratory Appointment Lab 05/28/2022 Office Visit Zulma Garrison MD [facility] [place] [address] Liz Poole PA [facility] [place] [address] 06/10/2022 Office Visit Dermatology Laura Scherer MD [facility] ER DR [address] [facility] [place] [address] (Wo rk) Scheduled Orders Name Type [...] LABORATORY Neutr Abs (ANC) 3.96 1.70 - [facility] 6.10 [facility] x10(3)/[facility] LABORATORY Lymphocytes % 16.3 % [facility] LABORATORY Lymphocytes Abs 0.9 0.9 - 3.2 [facility] x10(3)/[facility] LABORATORY Monocytes % 10.0 % [facility] LABORATORY Monocyte Abs 0.6 0.3 - 0.9 [facility] x10(3)/[facility] LABORATORY Eosinophils % 0.5 % [facility] LABORATORY Eosinophils Abs 0.0 0.0 - 0.4 [facility] x10(3)/[facility] LABORATORY Basophils % 0.5 % [facility] LABORATORY Basophils Abs 0.0 0.0 - 0.1 [facility] x10(3)/[facility] LABORATORY Immature Gran % 0.90 % [...] Organization Address City/State/[place] [address] (ABNORMAL) Hemogram (01/30/2022 2:12 PM EDT) Analysis Performed At Patho logist Time Signature WBC 5.5 4.0 - 9.5 [facility] x10(3)/[facility] LABORATORY RBC 4.30 (L) 4.58 - [facility] 5.54 [facility] x10(6)/[facility] LABORATORY Hemoglobin 12.7 (L) 13.7 - [place] 16.5 g/dL [facility] LABORATORY Hematocrit 39.4 (L) 40.5 - [place] 48.5 % [facility] LABORATORY MCV 91.6 82.9 - [place] 93.1 [facility] LABORATORY MCH 29.5 27.5 - [place] 32.1 pg [facility] LABORATORY MCHC 32.2 32.0 - [place] 35.7 g/dL [facility] LABORATORY Platelets 172 145 - 357 [facility] x10(3)/[facility] LABORATORY RDWSD 54.5 (H) 36.0 - [place] 45.0 [facility] LABORATORY RDWCV 16.4 (H) 11.4 - [place] 13.8 % [facility] LABORATORY MPV 9.2 7.6 - 12.9 [place] [facility] LABORATORY nRBC % Auto 0.0 % [facility] LABORATORY nRBC Abs Auto 0.000 0.000 - [place] 0.000 [facility] x10(3)/[facility] LABORATORY Specimen Anatomical Collection Method Collection Time Receive d Time (Source) Location / / Volume Laterality Blood 01/30/2022 2:12 PM 2 2:37 EDT PM EDT Resulting Agency Comment Spec In Lab Eddi Elizabeth Jr., MD HEMATOLOGY ORDERABLES Performing Organization Address City/State/[place] [address] (ABNORMAL) Basic Metabolic Panel (non-fasting) (01/30/2022 2:12 PM EDT) athologist Signature Glucose Lvl 163 65 - [address] [facility]dL [facility] LABORATORY Comment: Diabetes: >=200 mg/dL plus symp toms BUN 30 (H) 10 - 20 mg/dL [facility] LABORATORY Creatinine 1.47 0.80 - [...] Organization Address City/State/[place] [address] POCT Glucose (01/30/2022 1:41 PM EDT) athologist Signature POC Glucose 148 65 - 199 [facility] mg/dL [facility] LABORATORY Comment: Supplemental ranges: <140 mg/dL before meals <180 mg/dL all other times of the day Specimen Anatomical Collection Method Collection Time Receive d Time (Source) Location / / Volume Laterality Blood 01/30/2022 1:41 PM 2 1:41 EDT PM EDT Vitaliy Nobles MD POINT OF CARE TEST ORDERABLE S Performing Organization Address City/[facility]/ZIP Code Phon e Number [address] POCT Glucose (01/30/2022 10:48 AM EDT) P athologist Signature POC Glucose 193 65 - 199 [facility] mg[facility]dL [facility] LABORATORY Comment: Supplemental ranges: <140 mg/dL before meals <180 mg/dL all other times of the day Specimen Anatomical Collection Method Collection Time Receive d Time (Source) Location / / Volume Laterality Blood 01/30/2022 10:48 01/30/2022 AM EDT 10:48 AM EDT Vitaliy Nobles MD POINT OF CARE TEST ORDERABLE S Performing Organization Address [facility] [place] [address] EKG 12 Lead (01/30/2022 10:33 AM EDT) Component Value Ref Range Test Analysis Performed Pathologis t Method Time At Signature Ventricular rate 64 BPM MUSE SYSTEM Atrial Rate 64 BPM MUSE SYSTEM P-R Interval 162 ms MUSE SYSTEM QRS Duration 94 ms MUSE SYSTEM Q-T Interval 422 ms MUSE SYSTEM QTC Calculated 435 ms MUSE SYSTEM (Bezet) Calculated P [place] 41 degrees MUSE SYSTEM Calculated R Oxbow -27 degrees MUSE SYSTEM Calculated T [place] 104 degrees MUSE SYSTEM INTERPRETATION Normal sinus rhythm MUSE SYSTEM Anterolateral infarct (cited on or before 09-DEC-2021) Abnormal ECG When compared with ECG of 10-DEC-2021 11:17, No significant change was found Confirmed by Gary Perez ([id number]) on 01/30/2022 5:57:5 2 PM Specimen Anatomical Collection Method Collection Time Receive d Time (Source) Location / / Volume Laterality 01/30/2022 10:33 01/30/2022 5:57 AM EDT PM EDT Vitaliy Nobles MD ECG ORDERABLES Performing Organization Address City/[facility]/ZIP Code Phon e Number MUSE SYSTEM CARDIAC CATHETERIZATION (01/30/2022 10:16 AM EDT) Anatomical Region Laterality Modality Other Specimen (Source) Anatomical Location Collection Method / Collectio n Time Received Time / Laterality Volume Narrative 01/30/2022 2:09 PM EDT ?[facility] ? Cardiac Cathete rization/Intervention Report ? Patient Name: Don Fatima. ? Procedure Date: 01/30/2022 ? A #: [id number] ? Primary Physician: Nobles, Vitaliy P ? Case #: [id number] ? File Name: [id number] ? Catheterization Order Number: [id number] ? [facility] ? Final Report [place], [place] ? Patient Name: ? Don E. Stewa rt ? ID#: ?[id number] ? : ?1945 ? Procedure Date: ? [...] procedure was Urgent. The indication for ?the crime lab technician visit is stable kn own [...] guiding catheter an d a 3.[address] ??20 Mhz ?using Manual pullback. ??Imagin [...] A premounted 2.00 x 26 mm Hardeep Kingston (TUCKER) ? was deployed wi a maximum [...] Wedelivered along 2.0 x 26 mm HARDEEP Kingston ? TUCKER stent and p ositioned it [...] dose administered prior to arrival in the crime lab technician. ?Recommended anti-platelet/anti- thrombotic regimen: ?Continue [...] may require ?modification of this regimen. [facility] ?questions. ?The [...] using a 2.0 x 26 mm HARDEEP Kingston TUCKER stent. ?This completes the revasculariz ation [...] - 03/06/2022 [facility] Cardiac Catheterization/Intervention Re port Patient Name: Don Fatima Procedure Date: 01/30/2022 A #: [id number] Primary Physician: Vitaliy Nobles Case #: [id number] File Name: [id number] Catheterization Order Number: [id number] [facility] Final Report [place], [place] Patient Name: Don Fatima ID#: [...] e was Urgent. The indication for the crime lab technician visit is stable known CAD. [...] 1.5 guiding catheter and a 3.[address] 20 Mhz using Manual pullback. Imaging [...] A premounted 2.00 x 26 mm Hardeep Kingston (TUCKER) was deployed with a maximum inflation [...] along 2. 0 x 26 mm HARDEEP Kingston TUCKER stent and positioned it at the [...] administered prior t o arrival in the crime lab technician. Recommended anti-platelet/anti-thrombot ic regimen: Continue [...] modification of this regimen. Consult [facility] Interventional Cardiology for questions. The 1 year [...] using a 2.0 x 26 mm HARDEEP Kingston TUCKER stent. This completes the revascularization of [...] POC Glucose 212 (H) 65 - 199 [facility] mg/dL [facility] LABORATORY Comment: Supplemental ranges: <140 mg/dL before meals <180 mg/dL all other times of the day Specimen Anatomical Collection Method Collection Time Receive d Time (Source) Location / / Volume Laterality Blood 01/30/2022 9:04 AM 2 9:04 EDT AM EDT Vitaliy Nobles MD POINT OF CARE TEST ORDERABLE S Performing Organization Address City/State/Z[place] [address] (ABNORMAL) POCT Glucose (01/30/2022 8:10 AM EDT) athologist Signature POC Glucose 224 (H) 65 - 199 [facility] mg/dL [facility] LABORATORY Comment: Supplemental ranges: <140 mg/dL before meals <180 mg/dL all other times of the day Specimen Anatomical Collection Method Collection Time Receive d Time (Source) Location / / Volume Laterality Blood 01/30/2022 8:10 AM 2 8:10 EDT AM EDT Vitaliy Nobles MD POINT OF CARE TEST ORDERABLE S Performing Organization Address City/State/Z[place] [address] documented in this encounter Visit Diagnoses Diagnosis ASCVD (arteriosclerotic cardiovascular d isease) Unspecified cardiovascular disease 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 ASHD (arteriosclerotic heart disease) Coronary atherosclerosis of unspecified type of vessel, white earth or graft ASCVD (arteriosclerotic cardiovascular d isease) Unspecified cardiovascular disease documented in this encounter Admitting Diagnoses Diagnosis CAD (coronary artery disease) Coronary atherosclerosis of unspecified type of vessel, white [place] or graft documented in this encounter Administered [...] Given 02/2022 10:11 AM EDT 100 mcg (HAND MARKER) ONCE PRN, Starting on Wed01/30/22 at 0927, [...] Procedure), Routine niCARdipine (Cardene) (100 mcg/mL) dilution (HAND MARKER) (CANCELED ) 0927 (Given - Provider: Vitaliy Nobles MD)0935 (Given - Provider: Vitaliy Nobles MD)0957 (Given - Provider: Vitaliy Nobles MD)1005 (Given - Provider: Vitaliy Nobles MD)1008 (Given - Provider: Vitaliy Noblse MD)1011 (Given - Provider: Vitaliy Nobles MD) ONCE PRN, Starting on Wed01/30/22 at 0927 , Until Wed01/30/22 at 1229, Intra- Operative (Intra-Procedure), Routine sodium chloride 0.9% infusion (CANCELED) 1013 (New Bag - Provider: Katerin Kay, VAMSI) CONTINUOUS PRN, Starting on Wed01/30/22 a t 1013, Until Wed01/30/22 at 1025, Cath (Intra-Procedure) documented in this encounter Care Teams Juice Weigher Relationship Specialty Start Date End Date Lovely Vicente MD PCP - General 04/16/[address] [place] [address] documented as of this encounter
--- OUTSIDE RECORDS SUMMARY | 2022-04-17 08:19 | XMS_ITS | Encounter Summary ---
:1945 Author Organization [facility] [place] [address] Care Team Providers Name Role Phone Lovely Vicente MD Primary Care Provider Encounter Details Date Type Department Care Team Description 12/24/2021 Orders Only Portainer Operator Zulma Finch ASCVD (art eriosclerotic [facility] cardiovascular disease) [facility] [place] [address] [place], [place] [phone] [address] (Work) [phone] Social History Tobacco Use Types Packs/Day Years [...] Dolan MD [facility] [address] [place] [address] (Wo rk) 05/28/2022 Laboratory Appointment Lab 05/28/2022 Office Visit Cardiology Zulma Dolan MD [facility] [place] [address] Liz Poole PA [facility] Dr Cardiology [place] [address] 06/10/2022 Office Visit Dermatology Laura Scherer MD [facility] [address] [place], [place] [address] (Wo rk) documented as of this encounter Visit Diagnoses Diagnosis ASCVD (arteriosclerotic cardiovascular d isease) Unspecified cardiovascular disease documented in this encounter Care Teams Mortgage Counselor Relationship Specialty Start Date End Date Lovely Vicente MD PCP - General 04/16/[address] [place] [address] documented as of this encounter
--- OUTSIDE RECORDS SUMMARY | 2022-04-17 08:19 | XMS_ITS | Encounter Summary ---
:1945 Author Organization [facility] [place] [address] Care Team Providers Name Role Phone Lovely [...] [facility] [place] [address] Referral ID Status Reason Start Date Expiration Date Visits Requ ested Visits Authorized [id number] 1 1 Encounter Details Date Type Department Care Team Description 01/30/2022 Laboratory Lab 3L [place]ina ASCVD (arterios clerotic Appointment [facility] cardiovas cular disease) [place] [address] Social History Tobacco Use Types Packs/Day Years [...] Zulma Dolan MD [facility] [place], [place] [address] (Wo rk) 05/28/2022 Laboratory Appointment Lab 05/28/2022 Office Visit Cardiology Zulma Dolan MD [facility] [place] [address] Liz Poole PA [facility] [place] [address] 06/10/2022 Office Visit Dermatology Laura Scherer MD [facility] DR [address] [place], [place] [address] (Wo rk) documented as [...] (ABNORMAL) Differential, Automated (01/30/2022 7:19 AM EDT) [facility] gist Method Time Signature Neutrophils % 77.9 % [facility] LABORATORY Neutr Abs (ANC) 5.31 1.70 - [facility] 6.10 [facility] x10(3)/[facility] LABORATORY Lymphocytes % 12.0 % [facility] LABORATORY Lymphocytes Abs 0.8 (L) 0.9 - 3.[address] [facility] x10(3)/[facility] LABORATORY Monocytes % 8.1 % [facility] LABORATORY Monocyte Abs 0.6 0.3 - 0.[address] [facility] x10(3)/[facility] LABORATORY Eosinophils % 0.4 % [facility] LABORATORY Eosinophils Abs 0.0 0.0 - 0.[address] [facility] x10(3)/[facility] LABORATORY Basophils % 0.6 % [facility] LABORATORY Basophils Abs 0.0 0.0 - 0.[address] [facility] x10(3)/[facility] LABORATORY Immature Gran % 1.00 [...] Address City/State/[place] [address] (ABNORMAL) Hemogram (01/30/2022 7:19 AM EDT) Analysis Performed At Patho logist Time Signature WBC 6.8 4.0 - 9.[address] [facility] x10(3)/[facility] LABORATORY RBC 4.32 (L) 4.58 - [facility] 5.54 [facility] x10(6)/[facility] LABORATORY Hemoglobin 13.0 (L) 13.7 - [facility] 16.5 g/dL [facility] LABORATORY Hematocrit 39.8 (L) 40.5 - [facility] 48.5 % [facility] LABORATORY MCV 92.1 82.9 - [facility] 93.1 fL [facility] LABORATORY MCH 30.1 27.5 - [facility] 32.1 pg [facility] LABORATORY MCHC 32.7 32.0 - [place] 35.7 g/dL [facility] LABORATORY Platelets 172 145 - [address] [facility] x10(3)/[facility] LABORATORY RDWSD 54.5 (H) 36.0 - [place]AN 45.0 [facility] LABORATORY RDWCV 16.2 (H) 11.4 - [facility] 13.8 % [facility] LABORATORY MPV 9.0 7.6 - 12.9 [facility] LABORATORY nRBC % Auto 0.0 % [facility] LABORATORY nRBC Abs Auto 0.000 0.[address] - [facility] 0.000 [facility] x10(3)/[facility] LABORATORY Specimen Anatomical Collection Method Collection Time Receive d Time (Source) Location / / Volume Laterality Blood 01/30/2022 7:19 AM 7:21 EDT AM EDT Resulting Agency Comment Spec In Lab Zulma BROWN HEMATOLOGY ORDERABLES Performing Organization Address City/State/[place] [address] (ABNORMAL) Basic Metabolic Panel (non-fasting) (01/30/2022 7:19 AM EDT) P athologist Signature Glucose Lvl 237 (H) 65 - [address] [facility] mg/dL [facility] LABORATORY Comment: Diabetes: >=200 mg/dL plus symp toms BUN 34 (H) 10 - 20 mg/dL [facility] LABORATORY Creatinine 1.45 0.80 - 1.50 mg/dL [facility] [...] - 15 mmol/L [facility] LABORATORY Calcium 9.5 8.5 - 10.5 [...] Organization Address City/State/ZIP Code Phon e Number [place] [id number] HOS[address] documented in this encounter Visit Diagnoses Diagnosis ASCVD (arteriosclerotic cardiovascular d isease) Unspecified cardiovascular disease documented in this encounter Care Teams Morning Nanny Relationship Specialty Start Date End Date Lovely Vicente MD PCP - General 04/16/[address] [place] [address] documented as of this encounter
--- OUTSIDE RECORDS SUMMARY | 2022-04-17 08:19 | XMS_ITS | Encounter Summary ---
:1945 [place] [address] Care Team Providers Name Role Phone Lovely Vicente MD Primary Care Provider Encounter Details Date Type Department Care Team Description 12/30/2021 Notes Only [facility]iac Rehab [facility], VAMSI [facility] [place] [address] Social History Tobacco Use Types Packs/Day [...] Failure team. DX: HFrEF. Referral placed to [facility] documented in this encounter Plan of Treatment Upcoming Encounters Date Type Specialty Care Team Description 05/28/2022 Appointment Cardiology Zulma Dolan MD [facility] [place] [address] (Wo rk) 05/28/2022 Laboratory Appointment Lab 05/28/2022 Office Visit Cardiology Zulma Dolan MD [facility] [place] [address] Liz Poole PA [facility] [place] [address] 06/10/2022 Office Visit Dermatology Laura Scherer MD [facility] ER [address] [place], [place] [address] (Wo rk) documented as of this encounter Visit Diagnoses Not on filedocumented in this encounter Care Teams Design Center Consultant Relationship Specialty Start Date End Date Lovely Vicente MD PCP - General 04/16/[address] [place] [address] documented as of this encounter
--- OUTSIDE RECORDS SUMMARY | 2022-04-17 08:19 | XMS_ITS | Encounter Summary ---
:1945 Author Organization [facility] [place] [address] Care Team Providers Name Role Phone Lovely Vicente MD Primary Care Provider Reason for Visit Reason Onset Date Comments Advice Only 01/28/2022 Encounter Details Date Type Department Care Team Description 01/28/2022 Telephone Cardiology at [place] Chitra Angela, maintenance [place] [address] Social History Tobacco Use Types Packs/Day [...] Cardiology Zulma Dolan MD [facility] Dr [place], [place] [address] (Wo rk) 05/28/2022 Laboratory Appointment Lab 05/28/2022 Office Visit Cardiology Zulma Dolan MD [facility] [place] [address] Liz Poole PA [facility] [place] [address] 06/10/2022 Office Visit Dermatology Laura Scherer MD [facility] [address] [place], [place] [address] (Wo rk) documented as of this encounter Visit Diagnoses Not on filedocumented in this encounter Care Teams Vineyard Tender Relationship Specialty Start Date End Date Lovely Vicente MD PCP - General 04/16/[address] [place] [address] documented as of this encounter
--- OUTSIDE RECORDS SUMMARY | 2022-04-17 08:19 | XMS_ITS | Encounter Summary ---
:1945 Author Organization [facility] [address] Care Team Providers Name Role Phone Lovely Vicente MD Primary Care Provider Encounter Details Date Type Department Care Team Description 01/28/2022 Orders Only Broke Handler Zulma Finch ASCVD (art eriosclerotic [facility] cardiovascular disease) [facility] [place] [address] [place], [place] [phone] [address] (Work) [phone] Social History Tobacco Use Types Packs/Day Years [...] [facility] [place] [address] Liz Poole PA [facility] [place] [address] 06/10/2022 Office Visit Dermatology Laura Scherer MD [facility] DR [address] [place], [place] [address] (Wo rk) documented as of this encounter Results (ABNORMAL) Basic Metabolic Panel (non-fasting) (01/30/2022 7:19 AM EDT) athologist Signature Glucose Lvl 237 (H) 65 - 199 [facility] mg/dL [facility] [...] Organization Address City/State/[place] [address] documented in this encounter Visit Diagnoses Diagnosis ASCVD (arteriosclerotic cardiovascular d isease) Unspecified cardiovascular disease documented in this encounter Care Teams Air Antisubmarine Officer Relationship Specialty Start Date End Date Lovely Vicente MD PCP - General 04/16/[address] [place] [address] documented as of this encounter
--- OUTSIDE RECORDS SUMMARY | 2022-04-17 08:19 | XMS_ITS | Encounter Summary ---
:1945 Author Organization [facility] [place] [address] Care Team Providers Name Role Phone Lovely Vicente MD Primary Care Provider Encounter Details Date Type Department Care Team Description 12/15/2021 Telephone Cardiology at [facility] Barbara [place], [place] [address] Social History Tobacco Use Types Packs/Day [...] Zulma Dolan MD [facility] [place], [place] 0[address] (Wo rk) 05/28/2022 Laboratory Appointment Lab 05/28/2022 Office Visit Cardiology Zulma Dolan [place] [facility] [place] [address] Liz Poole PA [facility] [place] [address] 06/10/2022 Office Visit Dermatology Laura Scherer MD [facility] [address] [place], [place] [address] (Wo rk) documented as of this encounter Visit Diagnoses Not on filedocumented in this encounter Care Teams Marketing Operations Assistant Relationship Specialty Start Date End Date Lovely Vicente MD PCP - General 04/16/[address] [facility] [address] [place] [address] documented as of this encounter
--- OUTSIDE RECORDS SUMMARY | 2022-04-17 08:19 | XMS_ITS | Encounter Summary ---
:1945 Author Organization [facility] Address [facility] [place] [address] Care Team Providers Name Role Phone Lovely Vicente MD Primary Care Provider Reason for Visit Reason Comments Prior Authorization Entresto 24-26mg tablets Encounter Details Date Type Department Care Team Description 02/20/2022 Specialty Pharmacy Pharmacy [place] [facility] Lamberto Smith Prior Authorization [facility] J (Entresto 24-26mg Drive tablets) [place] [id number] Social History Tobacco Use Types Packs/Day Years [...] Don Fatima Patient : 1945 Patient Address: [address] [place] [address] [place] [address] (home) Medication Name: ENTRESTO 24 MG-26 MG TABLET Medication ID: [id number] Patient Location: [facility]A Patient Location Comment: Medication Strength Frequency Requested: Entresto 24-26mg tablets / One tablet twice daily Qty/Day Supply: New Start: New to Therapy Diagnosis & ICD-10 Code: Chronic systolic heart failure, I50.22 Subscriber Insurance: [employer] [facility] Subscriber Insurance Comment: Fax: Physician: LIZ CARRERA Physician Comment : PA Status: NO PA REQUIRED Insurance mandated Pharmacy: Unknown [facility] at [facility]: Yes Insurance requirements/notes: None Copay: $119.01 (goes to coverage gap/odalys monteiro) Copay assistance: [employer] Copay assistance comment: If cost isn't affordable, then we'll suggest enrollment in the currently open [facility] Heart Failure zoila, which provides up to $1000 in copay assistance. If zoila closes, or doesn't work out, then the patient can attempt enrollment in the dye range feeder assistance program, the [employer] Patient Assistance [employer] (NPAF). At which point we'd refer to [facility] for assistance with enrollment. Pharmacy staff [...] Zulma Dolan MD [facility] [address] [place], [place] [address] (Wo rk) 05/28/2022 Laboratory Appointment Lab 05/28/2022 Office Visit Cardiology Zulma Dolan MD [facility] [place] [address] Liz Carrera PA [facility] [place] [address] 06/10/2022 Office Visit Dermatology Laura Scherer MD [facility] ER [address] [place], [place] [address] (Wo rk) documented as of this encounter Visit Diagnoses Not on filedocumented in this encounter Care Teams Hairspring Assembler Relationship Specialty Start Date End Date Lovely Vicente MD PCP - General 04/16/[address] [place] [address] documented as of this encounter
--- OUTSIDE RECORDS SUMMARY | 2022-04-17 08:19 | XMS_ITS | Encounter Summary ---
:1945 Author Organization [facility] [place] [address] Care Team Providers Name Role Phone Lovely Vicente MD Primary Care Provider Reason for Visit Reason Onset Date Comments Follow-up 02/23/2022 Medication adjustmen t and new med Encounter Details Date Type Department Care Team Description 02/23/[address] [facility] Martha Comer, Follow-up ([facility] RN adjustbrandon t and new med) [place] [address] Social History Tobacco Use Types Packs/Day [...] the order for BMP and sent to [facility]. will call [facility] to make an appointment for next Wednesday03/04/22. [...] tablet) daily. She will correct his pill cyber policy and strategy planner to the new dose. Will need to check with STEPHANIE Poole about repeat BMP to recheck K+ level. If yes he will get the test done at [facility]. They are aware that he will need to make an appt at [facility] to get the test done. Entresto: states [...] if he qualifies for assistance from the [employer]. She is thankful for the assistance, as he is taking insulin that is very expensive too. Instructed to call this sign writer hand, if he does qualify for assistance from [employer] and that he has gotten the medication [...] Zulma Dolan MD [facility] [place], [place] [address] (Wo rk) 05/28/2022 Laboratory Appointment Lab 05/28/2022 Office Visit Cardiology Zulma Dolan MD [facility] [place] [address] Liz Poole PA [facility] [place] [address] 06/10/2022 Office Visit Dermatology Laura Scherer MD [facility] [address] [place], [place] [address] (Wo rk) documented as of this encounter Visit Diagnoses Not on filedocumented in this encounter Care Teams Cna Hha Relationship Specialty Start Date End Date Lovely Vicente MD PCP - General 04/16/[address] [place] [address] documented as of this encounter
--- OUTSIDE RECORDS SUMMARY | 2022-04-17 08:19 | XMS_ITS | Encounter Summary ---
:1945 Author Organization [facility] Address [facility] [place] [address] Care Team Providers Name Role Phone Lovely Vicente MD Primary Care Provider Reason for Visit Auth/Cert Specialty Diagnoses / Procedures Referred By Contact Refer red To Contact Diagnoses ASCVD (arteriosclerotic cardiovascular disease) [I25.10] Vitaliy Nobles MD [facility] Procedures PRO PERC TRLUML CORONARY STENT W/ANGIO ONE ART/BRANCH CARDIAC CATHETERIZATION STENT PLACEMENT-SINGLE MAJOR CORONARY ARTERY OR BRANCH [facility] [place] [address] Referral ID Status Reason Start Date Expiration Date Visits Requ ested Visits Authorized [id number] 1 1 Encounter Details Date Type Department Care Team Description 01/30/2022 Hospital Encounter Short Stay Unit at Vitaliy Nobles, CVD (arteriosclerotic cardiovascular disease); Barbara Blue MD 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 Please follow up with your head of marketing in the next 4-6 weeks. We have made a referral to cardiac rehab. Please see the attached instructions regarding care to your right wrist access site. AttachmentsThe following attachments cannot be sent through Care Everywhere. Coronary Angiogram: Post-op (French)documented in this encounter Medications at Time of [...] Murray RN - 01/30/2022 4:54 PM EDT [facility] Short Stay Unit Discharge Note All [...] recent PCI presenting for staged PCI to [facility]. The pt states he [...] recent PCI presenting for staged PCI to [facility]. 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 I had referred him to cardiac rehab at [facility] last month per HF team. He was waiting until this intervention before starting the program. Reviewed managing angina /use of sl nitroglycerin. Given parameters for home exercise. 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 We discussed short walks several times per day. Will send [facility] his discharge summary from this admission. The patient should be contacted by the Program within 1- 2 weeks from discharge. Brief Op Note - Vitaliy Nobles MD - 01/30/2022 10:19 AM EDT Images from the original note were not included. [facility] [place] [address] CORONARY ANGIOGRAM AND PERCUTANEOUS CORONARY INTERVENTION REPORT Patient: Don Fatima : 1945 MR number: [id number] Date of Service: 01/30/2022 Biostatistics Professor: Vitaliy Nobles MD Fellow: KEYON Elizabeth INDICATION: [...] a long 2.0 x 26 mm [place] TUCKER stent and positioned it at [...] using a 2.0 x 26 mm HARDEEP [place] TUCKER stent. This completes the revascularization [...] Dolan MD [facility] er [place] [address] (Wo rk) 05/28/2022 Laboratory Appointment Lab 05/28/2022 Office Visit Cardiology Zulma Dolan MD [facility] [place] [address] Liz Poole PA [facility] [place] [address] 06/10/2022 Office Visit Dermatology Laura Scherer MD [facility] ER [address] [place], [place] [address] (Wo rk) Scheduled Orders Name [...] athologist Signature Neutrophils % 71.8 % [facility] Neutr Abs (ANC) 3.96 1.70 - [facility] 6.10 [facility] x10(3)/[facility] LABORATORY Lymphocytes % 16.3 % [facility] Lymphocytes Abs 0.9 0.9 - 3.2 [facility] x10(3)/[facility] LABORATORY Monocytes % 10.0 % [facility] Monocyte Abs 0.6 0.3 - 0.9 [facility] x10(3)/[facility] LABORATORY Eosinophils % 0.5 % [facility] Eosinophils Abs 0.0 0.0 - 0.4 [facility] x10(3)/[facility] LABORATORY Basophils % 0.5 % [facility] Basophils Abs 0.0 0.0 - 0.1 [facility] x10(3)/[facility] LABORATORY Immature Gran % 0.90 % [...] Organization Address City/State/[place] [address] (ABNORMAL) Hemogram (01/30/2022 2:12 PM EDT) Analysis Performed At Patho logist Time Signature WBC 5.5 4.0 - 9.5 [facility] x10(3)/[facility] LABORATORY RBC 4.30 (L) 4.58 - [place] 5.54 [facility] x10(6)/[facility] LABORATORY Hemoglobin 12.7 (L) 13.7 - [place] 16.5 g/dL [facility] Hematocrit 39.4 (L) 40.5 - [place] 48.5 % [facility] MCV 91.6 82.9 - [facility] 93.[address] [facility] LABORATORY MCH 29.5 27.5 - [place] ZHAOSU 32.1 pg [facility] MCHC 32.2 32.0 - [place] 35.7 g/dL [facility] Platelets 172 145 - 357 [facility] x10(3)/[facility] LABORATORY RDWSD 54.5 (H) 36.0 - [facility] 45.[address] [facility] LABORATORY RDWCV 16.4 (H) 11.4 - [facility] 13.8 % [facility] MPV 9.2 7.6 - 12.9 [facility] LABORATORY nRBC % Auto 0.0 % [facility] nRBC Abs Auto 0.000 0.000 - [facility] 0.000 [facility] x10(3)/[facility] LABORATORY Specimen Anatomical Collection Method Collection Time Receive d Time (Source) Location / / Volume Laterality Blood 01/30/2022 2:12 PM 2 2:37 EDT PM EDT Resulting Agency Comment Spec In Lab Eddi Elizabeth Jr., MD HEMATOLOGY ORDERABLES Performing Organization Address City/State/[place] [address] (ABNORMAL) Basic Metabolic Panel (non-fasting) (01/30/2022 2:12 PM EDT) P athologist Signature Glucose Lvl 163 65 - 199 [facility] mg/dL [facility] Comment: Diabetes: >=200 mg/dL plus symp toms BUN 30 (H) 10 - 20 mg/dL [facility] LABORAT[facility] Creatinine 1.47 0.80 - 1.50 mg/dL [facility] Sodium 140 135 - 145 [...] Organization Address City/State/[place] [address] POCT Glucose (01/30/2022 1:41 PM EDT) athologist Signature POC Glucose 148 65 - 199 [facility] mg/dL [facility] Comment: Supplemental ranges: <140 mg/dL before meals <180 mg/dL all other times of the day Specimen Anatomical Collection Method Collection Time Receive d Time (Source) Location / / Volume Laterality Blood 01/30/2022 1:41 PM 1:41 EDT PM EDT Vitaliy Sandra Nobles MD POINT OF CARE TEST ORDERABLE S Performing Organization Address City/[facility]/ZIP Code Phon e Number [address] POCT Glucose (01/30/2022 10:48 AM EDT) P athologist Signature POC Glucose 193 65 - 199 [facility] mg/dL [facility] Comment: Supplemental ranges: <140 mg/dL before meals <180 mg/dL all other times of the day Specimen Anatomical Collection Method Collection Time Receive d Time (Source) Location / / Volume Laterality Blood 01/30/2022 10:48 01/30/2022 AM EDT 10:48 AM EDT Vitaliy Sandra Nobles MD POINT OF CARE TEST ORDERABLE S Performing Organization Address [facility] [place] [address] EKG 12 Lead (01/30/2022 10:33 AM EDT) Component Value Ref Range Test Analysis Performed Pathologis t Method Time At Signature Ventricular rate 64 BPM MUSE SYSTEM Atrial Rate 64 BPM MUSE SYSTEM P-R Interval 162 ms MUSE SYSTEM QRS Duration 94 ms MUSE SYSTEM Q-T Interval 422 ms MUSE SYSTEM QTC Calculated 435 ms MUSE SYSTEM (Bezet) Calculated P [place] 41 degrees MUSE SYSTEM Calculated R [place] -27 degrees MUSE SYSTEM Calculated T [place] 104 degrees MUSE SYSTEM INTERPRETATION Normal sinus rhythm MUSE SYSTEM Anterolateral infarct (cited on or before 09-DEC-2021) Abnormal ECG When compared with ECG of 10-DEC-2021 11:17, No significant change was found Confirmed by Gary Perez ([id number]) on 01/30/2022 5:57:5 2 PM Specimen Anatomical [...] Laterality Volume Narrative 01/30/2022 2:09 PM EDT ?[facility] ? Cardiac Cathete rization/Intervention Report ? Patient Name: Don Fatima. ? Procedure Date: 01/30/2022 ? A #: [id number] ? Primary Physician: Nobles, Vitaliy P ? Case #: [id number] ? File Name: [id number] ? Catheterization Order Number: [id number] ? [facility] ? Final Report [place], [place] ? Patient Name: ? Don Mccollum. Stewa rt ? ID#: ?[id number] ? : ?1945 ? Procedure Date: ? [...] ?designated as ASA Class III. Th e [facility] clinical frailty scale is 5: [...] was Urgent. The indication for ?the lab manager visit is stable kn own CAD. Chest pain symptom assessment ?was: Typical Angina. ? Technique: ?A 6 SLFr sheath was inserted in the right radial artery utilizing the ?Seldinger technique. The right coronary artery was injected utilizing a ?IR 2.0 catheter. Coronary stent insertion was performed and the equipment ?utilized will be described in [facility] intervention summary section. 9,000 ?units of heparin [...] guiding catheter an d a 3.5 Fr [place] [facility] [address] ??20 Mhz ?using [...] A premounted 2.00 x 26 mm [place] (TUCKER) ? was deployed wi a [...] Wedelivered along 2.0 x 26 mm HARDEEP [place] ? TUCKER stent and p ositioned [...] administered prior to arrival in the lab manager. ?Recommended anti-platelet/anti- thrombotic regimen: ?Continue aspirin [...] of this regimen. C [place] [facility] [place]ventional [...] using a 2.0 x 26 mm HARDEEP [place] TUCKER stent. ?This completes the revasculariz [...] Procedure Note Vitaliy Nobles MD - 03/06/2022 [facility] Cardiac Catheterization/Intervention Re port Patient Name: Don Fatima Procedure Date: 01/30/2022 A #: [id number] Primary Physician: Vitaliy Nobles Case #: [id number] File Name: [id number] Catheterization Order Number: [id number] [facility] Final Report [place], [place] Patient Name: Don Fatima ID#: [...] was Urgent. The indication for the lab manager visit is stable known CAD. Chest pain [...] 1.5 guiding catheter and a 3.5 Fr [place] [facility] [address] 20 Mhz using Manual pullback. Imaging [...] atmospheres. A premounted 2.00 x 26 mm [place] (TUCKER) was deployed with a maximum inflation [...] along 2. 0 x 26 mm HARDEEP [place] TUCKER stent and positioned it at [...] administered prior t o arrival in the lab manager. Recommended anti-platelet/anti-thrombot ic regimen: Continue aspirin 81 [...] using a 2.0 x 26 mm HARDEEP [place] TUCKER stent. This completes the revascularization [...] POC Glucose 212 (H) 65 - 199 [facility] mg/dL [facility] Comment: Supplemental ranges: <140 mg/dL before meals <180 mg/dL all other times of the day Specimen Anatomical Collection Method Collection Time Receive d Time (Source) Location / / Volume Laterality Blood 01/30/2022 9:04 AM 2 9:04 EDT AM EDT Vitaliy Nobles MD POINT OF CARE TEST ORDERABLE S Performing Organization Address City/State/[place] [address] (ABNORMAL) POCT Glucose (01/30/2022 8:10 AM EDT) athologist Signature POC Glucose 224 (H) 65 - 199 [facility] mg/dL [facility] Comment: Supplemental ranges: <140 mg/dL before meals <180 mg/dL all other times of the day Specimen Anatomical Collection Method Collection Time Receive d Time (Source) Location / / Volume Laterality Blood 01/30/2022 8:10 AM 2 8:10 EDT AM EDT Vitaliy Nobles MD POINT OF CARE TEST ORDERABLE S Performing Organization Address City/State/[place] [address] documented in this encounter Visit Diagnoses Diagnosis ASCVD (arteriosclerotic cardiovascular d isease) Unspecified cardiovascular disease 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 ASHD (arteriosclerotic heart disease) Coronary atherosclerosis of unspecified type of vessel, [place] or graft ASCVD (arteriosclerotic cardiovascular d isease) Unspecified cardiovascular disease documented in this encounter Admitting Diagnoses Diagnosis CAD (coronary artery disease) Coronary atherosclerosis of unspecified type of vessel, [place] or graft documented in this encounter [...] Procedure), Routine niCARdipine (Cardene) (100 mcg/mL) dilution (SALES OPERATIONS) (CANCELED ) 0927 (Given - Provider: Vitaliy [...] (Intra-Procedure) documented in this encounter Care Teams Housesmith Relationship Specialty Start Date End Date Lovely Vicente MD PCP - General 04/16/[address] [place] [address] documented as of this encounter
--- OUTSIDE RECORDS SUMMARY | 2022-04-17 08:19 | XMS_ITS | Encounter Summary ---
:1945 Author Organization [facility] [place] [address] Care Team Providers Name Role Phone Lovely Vicente MD Primary Care Provider Reason for Visit Reason Onset Date Comments Medication Refill 12/12/2021 Torsemide Encounter Details Date Type Department Care Team Description 12/12/2021 Refill Cardiology at [facility] Janneth Padilla, Medication Refill [facility] STEPHANIE (Torsemide) [place] [address] CARDIOLOGY DEPT. [place], [place] [address] (Wo rk) Social History Tobacco [...] MD [facility] [place] [address] (Wo rk) 05/28/2022 Laboratory Appointment Lab 05/28/2022 Office Visit Cardiology Zulma Dolan MD [facility] [place] [address] Liz Poole PA [facility] [place] [address] 06/10/2022 Office Visit Dermatology Laura Scherer MD [facility] ER [address] [place], [place] [address] (Wo rk) documented as of this encounter Visit Diagnoses Diagnosis Chronic systolic heart failure documented in this encounter Care Teams License Issuer Relationship Specialty Start Date End Date Lovely Vicente MD PCP - General 04/16/[address] [place] [address] documented as of this encounter
--- OUTSIDE RECORDS SUMMARY | 2022-04-17 08:19 | XMS_ITS | Encounter Summary ---
:1945 Author Organization [facility] [place] [address] Care Team Providers Name Role Phone Lovely Vicente MD Primary Care Provider Encounter Details Date Type Department Care Team Description 02/23/2022 Refill Cardiology at [facility] Liz Poole PA [facility] [place] [address] Cardiology Dept [phone] [place], [place] [address] (Wo rk) Social History Tobacco [...] Oneill RPH Transfer of Services Don Fatima [address] [place] [address] [place] [address] Telephone Information: Work Phone Not on file. [facility] received a prescription for Entresto for patient Mr. Don Fatima 76 y.o. (1945). The patient requests the prescription to be filled with [facility]. We spoke to patient to notify of this change and to provide number to reach the new filling pharmacy. A copyof patient's medication profile was offered to the accepting pharmacy. Additional instructions provided to patient about transfer: no The patient has been advised to call the [facility] at [phone] with any questionsor concerns on this referral. Thank you, Oxana Oneill RPH 02/23/22 4:26 PM Patient understands no changes to current drug regimen were made at this time. documented in this encounter Plan of Treatment Upcoming Encounters Date Type Specialty Care Team Description 05/28/2022 Appointment Cardiology Zulma Dolan MD [facility] [place], [place] [address] (Wo rk) 05/28/2022 Laboratory Appointment Lab 05/28/2022 Office Visit Cardiology Zulma Dolan [place] [address] Liz Poole PA [facility] [place] [address] 06/10/2022 Office Visit Dermatology Laura Scherer MD [facility] [address] [place], [place] [address] (Wo rk) documented as of this encounter Visit Diagnoses Not on filedocumented in this encounter Care Teams Patient Liaison Relationship Specialty Start Date End Date Lovely Vicente MD PCP - General 04/16/[address] [place] [address] documented as of this encounter
--- OUTSIDE RECORDS SUMMARY | 2022-04-17 08:19 | XMS_ITS | Encounter Summary ---
:1945 Author Organization [place] [address] Care Team Providers Name Role Phone Lovely Vicente MD Primary Care Provider Encounter Details Date Type Department Care Team Description 02/19/2022 Laboratory Appointment Lab 3L [facility] [place] [id number] Social History Tobacco Use Types Packs/Day Years [...] [facility] [place] [address] (Wo rk) 05/28/2022 Laboratory Appointment Lab 05/28/2022 Office Visit Cardiology Zulma Dolan [place] [facility] [place] [address] Liz Poole PA [facility] [place] [address] 06/10/2022 Office Visit Dermatology Laura Scherer MD [facility] [address] [place] [address] (Wo rk) documented as of this encounter [...] (ABNORMAL) Differential, Automated (02/19/2022 8:06 AM EDT) [facility] gist Method Time Signature Neutrophils % 76.0 % [facility] LABORATORY Neutr Abs (ANC) 5.49 1.70 - [facility] 6.10 [facility] x10(3)/[facility] LABORATORY Lymphocytes % 10.8 % [facility] Lymphocytes Abs 0.8 (L) 0.9 - 3.2 [facility] x10(3)/[facility] LABORATORY Monocytes % 10.2 % [facility] Monocyte Abs 0.7 0.3 - 0.9 [facility] x10(3)/[facility] LABORATORY Eosinophils % 1.2 % [facility] Eosinophils Abs 0.1 0.0 - 0.4 [facility] x10(3)/[facility] LABORATORY Basophils % 0.8 % [facility] Basophils Abs 0.1 0.0 - 0.1 [facility] x10(3)/[facility] LABORATORY Immature Gran % 1.00 [...] Organization Address City/State/ZIP Code [place] [address] (ABNORMAL) Hemogram (02/19/2022 8:06 AM EDT) Analysis Performed At Patho logist Time Signature WBC 7.2 4.0 - 9.5 [facility] x10(3)/[facility] LABORATORY RBC 4.41 (L) 4.58 - [facility] 5.54 [facility] x10(6)/[facility] LABORATORY Hemoglobin 13.2 (L) 13.7 - [facility] 16.5 g/dL [facility] Hematocrit 40.9 40.5 - [facility] 48.5 % [facility] MCV 92.7 82.9 - [facility] 93.1 [facility] LABORATORY MCH 29.9 27.5 - [facility] 32.1 pg [facility] MCHC 32.3 32.0 - [facility] 35.7 g/dL [facility] Platelets 191 145 - 357 [facility] x10(3)/[facility] LABORATORY RDWSD 53.6 (H) 36.0 - [facility] 45.0 [facility] LABORATORY RDWCV 15.6 (H) 11.4 - [facility] 13.8 % [facility] LABORATORY MPV 8.7 7.6 - 12.9 [facility] LABORATORY nRBC % Auto 0.0 % [facility] nRBC Abs Auto 0.000 0.000 - [facility] 0.000 [facility] x10(3)/[facility] LABORATORY Specimen Anatomical Collection Method Collection Time Receive d Time (Source) Location / / Volume Laterality Blood 02/19/2022 8:06 AM 2 8:09 EDT AM EDT Resulting Agency Comment Spec In Lab Liz BROWN HEMATOLOGY ORDERABLES Performing Organization Address City/[facility]/[place] [address] (ABNORMAL) pro-Brain Natriuretic Peptide [...] Address City/State/[place] [address] (ABNORMAL) Basic Metabolic Panel (non-fasting) (02/19/2022 8:06 AM EDT) P athologist Signature Glucose Lvl 139 65 - 199 [facility] mg/dL [facility] LAB[facility]ORY Comment: Diabetes: >=200 mg/dL plus [...] Organization Address City/State/ZIP Code [place] [address] documented in this encounter Visit Diagnoses Diagnosis Chronic systolic heart failure documented in this encounter Care Teams Hereditary Cancer Program Coordinator Relationship Specialty Start Date End Date Lovely Vicente MD PCP - General 04/16/[address] [place] [address] documented as of this encounter
--- OUTSIDE RECORDS SUMMARY | 2022-04-17 08:19 | XMS_ITS | Encounter Summary ---
:1945 Author Organization [facility] [place] [address] Care Team Providers Name Role Phone Lovely Vicente MD Primary Care Provider Encounter Details Date Type Department Care Team Description 12/24/2021 Telephone Public Health at [facility] [place] [address] Social History Tobacco Use Types Packs/Day [...] Cardiology Zulma Dolan MD [facility] [address] [place], [place] [address] (Wo rk) 05/28/2022 Laboratory Appointment Lab 05/28/2022 Office Visit Cardiology Zulma Dolan MD [facility] [place] [address] Liz Poole PA [facility] [place] [address] 06/10/2022 Office Visit Dermatology Laura Scherer MD [facility] ER DR [address] [place], [place] [address] (Wo rk) documented as of this encounter Visit Diagnoses Not on filedocumented in this encounter Care Teams Dowel Pin Man Relationship Specialty Start Date End Date Lovely Vicente MD PCP - General 04/16/[address] [place] [address] documented as of this encounter
--- OUTSIDE RECORDS SUMMARY | 2022-04-17 08:19 | XMS_ITS | Encounter Summary ---
:1945 Author Organization [place] [address] Care Team Providers Name Role Phone Lovely Vicente MD Primary Care Provider Reason for Referral Diagnostic Test (Routine) - New Request Specialty Diagnoses / Procedures Referred By Contact Refer red To Contact Cardiology Diagnoses Chronic systolic heart failure Liz Carrera PA [facility] Non-Inv Card Lab Procedures Echocardiogram Transthoracic [facility] [address] [place] [address] Fax: Referral ID Status Reason Start Expiration Visits Visits Date Date Requested Authorized [id number] New Request Specialty 02/19/2022 02/19/2023 1 1 Service Requested Encounter Details Date Type Department Care Team Description 02/19/2022 Office Visit Cardiology at [facility] Liz Carrera, Chronic systolic heart [facility] [place] [address] Cardiology Dept [phone] [place], [place] [address] Social History Tobacco Use Types [...] As per DC Summary - Admitted to [facility] on 12/08/21, transferred from [facility], respiratory distress with hypoxia 86% on [...] mg PO daily in place of Lasix. [place] is new for him and he will [...] Antiplatelet (DAPT) Recommendations above ? TTE from [facility] 12/08/21 ?? 07/28/2019 Echocardiogram: SUMMARY: 1. [...] present. 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 Post-op atrial fibrillation [id number] (CHF, HTN, DM, vascular disease, thromboembolism) Eliquis 7. PAD 08/06/2017: Right 1st, 2nd, 3rd toe amputation 08/11/2017: Left??femoral arterial access, RLE??angiogram, Balloon angioplasty of R PT 10/25/2017: right popliteal-pedal bypass at [facility] 8. Hypothyrodism S/p thyroidectomy for goiter Levothyroxine [...] Zulma Dolan MD [facility] [place], [place] [address] (Wo rk) 05/28/2022 Laboratory Appointment Lab 05/28/2022 Office Visit Cardiology Zulma Dolan MD [facility] [place] [address] Liz Carrera PA [facility] [place] [address] 06/10/2022 Office Visit Dermatology Laura Scherer MD [facility] DR [address] [facility] [place] [place] [address] (Wo rk) Scheduled Orders Name Type Priority Associated Order Schedule Diagnoses Echocardiogram Echocardiography Routine Chronic systolic Expec vlad: Transthoracic heart failure 05/22/2022 (Approximate), Expires: 11/21/2022 documented as of this encounter Results (ABNORMAL) Basic Metabolic Panel (non-fasting) (02/19/2022 8:06 AM EDT) P athologist Signature Glucose Lvl 139 65 - 199 [facility] mg/dL [facility] LABORATORY [...] City/State/ZIP Code Phon e Number [place] [phone] HOSPITAL LABORATORY Drive (ABNORMAL) pro-Brain Natriuretic Peptide [...] [facility]/ZIP Code [place] [address] documented in this encounter Visit Diagnoses Diagnosis Chronic systolic heart failure documented in this encounter Care Teams Dye Stand Loader Relationship Specialty Start Date End Date Lovely Vicente MD PCP - General 04/16/[address] [place] [address] documented as of this encounter
--- OUTSIDE RECORDS SUMMARY | 2022-04-17 08:19 | XMS_ITS | Encounter Summary ---
:1945 Author Organization [facility] [place] [address] Care Team Providers Name Role Phone Lovely Vicente MD Primary Care Provider Encounter Details Date Type Department Care Team Description 02/24/2022 Orders Only Cardiology at [facility] Liz Poole, Chronic systolic heart [facility] [place] [address] Cardiology Dept [place], [place] [address] Social History Tobacco Use Types [...] Dolan MD [facility] [place] [address] (Wo rk) 05/28/2022 Laboratory Appointment Lab 05/28/2022 Office Visit Cardiology Zulma Dolan MD [facility] [place] [address] Liz Poole PA [facility] [place] [address] 06/10/2022 Office Visit Dermatology Laura Scherer MD [facility] ER [address] [place], [place] [address] (Wo rk) documented as of this encounter Visit Diagnoses Diagnosis Chronic systolic heart failure documented in this encounter Care Teams Patent Leather Sorter Relationship Specialty Start Date End Date Lovely Vicente MD PCP - General 04/16/[address] [place] [address] documented as of this encounter
--- OUTSIDE RECORDS SUMMARY | 2022-04-17 08:19 | XMS_ITS | Encounter Summary ---
:1945 Author Organization [place] [address] Care Team Providers Name Role Phone Lovely Vicente MD Primary Care Provider Encounter Details Date Type Department Care Team Description 02/24/2022 Notes Only [place] [address] Social History Tobacco Use Types Packs/Day [...] Dolan MD [facility] Dr [place], [place] [address] (Wo rk) 05/28/2022 Laboratory Appointment Lab 05/28/2022 Office Visit Cardiology Zulma Dolan MD [facility] [place] [address] Liz Poole PA [facility] [place] [address] 06/10/2022 Office Visit Dermatology Laura Scherer MD [facility] ER [address] [place], [place] [address] (Wo rk) documented as of this encounter Visit Diagnoses Not on filedocumented in this encounter Care Teams Trace Clerk Relationship Specialty Start Date End Date Lovely Vicente MD PCP - General 04/16/[address] [place] [address] documented as of this encounter
--- OUTSIDE RECORDS SUMMARY | 2022-04-17 08:19 | XMS_ITS | Encounter Summary ---
:1945 Author Organization [facility] [place] [address] Care Team Providers Name Role Phone Lovely Vicente MD Primary Care Provider Encounter Details Date Type Department Care Team Description 12/25/2021 Laboratory Appointment Lab 3L [facility] [place] [phone] Social History Tobacco Use Types Packs/Day Years [...] Dolan MD [facility] [place], [place] [address] (Wo rk) 05/28/2022 Laboratory Appointment Lab 05/28/2022 Office Visit Cardiology Zulma Dolan MD [facility] [place] [address] Liz Poole PA [facility] [place] [address] 06/10/2022 Office Visit Dermatology Laura Scherer MD [facility] DR [address] [place] [address] (Wo rk) documented as of this encounter [...] (ABNORMAL) Differential, Automated (12/25/2021 7:46 AM EDT) [facility] gist Method Time Signature Neutrophils % 82.6 % [facility] LABORATORY Neutr Abs (ANC) 9.37 (H) 1.70 - [facility] 6.10 [facility] x10(3)/[facility] LABORATORY Lymphocytes % 7.1 % [facility] LABORATORY Lymphocytes Abs 0.8 (L) 0.9 - 3.2 [facility] x10(3)/[facility] LABORATORY Monocytes % 8.8 % [facility] LABORATORY Monocyte Abs 1.0 (H) 0.3 - 0.9 [facility] x10(3)/[facility] LABORATORY Eosinophils % 0.4 % [facility] Eosinophils Abs 0.0 0.0 - 0.4 [facility] x10(3)/[facility] LABORATORY Basophils % 0.4 % [facility] LABOR[facility]ORY Basophils Abs 0.0 0.0 - 0.1 [facility] x10(3)/[facility] LABORATORY Immature Gran % 0.70 % [facility] [...] Organization Address City/State/ZIP Code Phon e Number [place] [phone] HOSPITAL LABORATORY Drive (ABNORMAL) Hemogram (12/25/2021 7:46 AM EDT) Analysis Performed At Patho logist Time Signature WBC 11.4 (H) 4.0 - 9.5 [facility] x10(3)/[facility] LABORATORY RBC 4.23 (L) 4.58 - [facility] 5.54 [facility] x10(6)/[facility] LABORATORY Hemoglobin 12.3 (L) 13.7 - [facility] 16.5 g/dL [facility] Hematocrit 37.7 (L) 40.5 - [facility] R[facility] 48.5 % [facility] LABORATORY MCV 89.1 82.9 - [facility] 93.1 [facility] LABORATORY MCH 29.1 27.5 - [place] 32.1 pg [facility] LABORATORY MCHC 32.6 32.0 - [facility] 35.7 g/dL [facility] LABORATORY Platelets 215 145 - 357 [facility] x10(3)/[facility] LABORATORY RDWSD 49.8 (H) 36.0 - [place] 45.0 [facility] RDWCV 15.2 (H) 11.4 - [facility] [place] 13.8 % [facility] LABORATORY MPV 9.2 7.6 - 12.9 [facility] LABORATORY nRBC % Auto 0.0 % [facility] LABORATORY nRBC Abs Auto 0.000 0.000 - [facility] 0.000 [facility] x10(3)/[facility] LABORATORY Specimen Anatomical Collection Method Collection Time Receive d Time (Source) Location / / Volume Laterality Blood 12/25/2021 7:46 AM 8:01 EDT AM EDT Resulting Agency Comment Spec In Lab Liz BROWN HEMATOLOGY ORDERABLES Performing Organization Address City/State/ZIP [place] [address] (ABNORMAL) Basic Metabolic Panel (non-fasting) (12/25/2021 7:46 AM EDT) P athologist Signature Glucose Lvl 272 (H) 65 - 199 [facility] mg/dL [facility] LABORATORY Comment: Diabetes: >=200 mg/dL plus symp toms BUN 62 (H) 10 - 20 mg/dL [facility] LABORATORY Creatinine 1.81 (H) 0.80 - 1.50 mg/dL [facility] LABORATORY Sodium 134 (L) 135 - 145 mmol/L [facility] LABORATORY Potassium 4.9 3.5 - 5.0 mmol/L [facility] LABORATORY Calcium 9.4 8.5 - 10.5 mg/dL [facility] LABORATORY Estimated GFR 36 (L) [...] Plunkett MD CHEMISTRY ORDERABLES Performing Organization Address City/[facility]/[place] [address] (ABNORMAL) pro-Brain Natriuretic Peptide (12/25/2021 7:46 AM EDT) P athologist Signature ProBNP 1,380 (H) <=124 [facility] pg/mL [facility] LABORATORY Specimen Anatomical Collection Method Collection Time Receive d Time (Source) Location / / Volume Laterality Blood 12/25/2021 7:46 AM 2 8:01 EDT AM EDT Resulting Agency Comment Spec In Lab Zulma Plunkett MD CHEMISTRY ORDERABLES Performing Organization Address City/[facility]/ZIP [facility] [place] [address] documented in this encounter Visit Diagnoses Diagnosis Chronic systolic heart failure documented in this encounter Care Teams Cash Teller Relationship Specialty Start Date End Date Lovely Vicente MD PCP - General 04/16/[address] [place] [address] documented as of this encounter
--- OUTSIDE RECORDS SUMMARY | 2022-04-17 08:19 | XMS_ITS | Encounter Summary ---
:1945 [place] [address] Care Team Providers Name Role Phone Lovely Vicente MD Primary Care Provider Encounter Details Date Type Department Care Team Description 12/25/2021 Office Visit Cardiology at [facility] Liz Poole, Chronic systolic heart [facility] [place] [address] Cardiology Dept [phone] [place], [place] [address] Social History Tobacco Use Types [...] Summary - Admitted to [facility] 12/08/21, transferred from [facility], respiratory distress with hypoxia 86% [...] mg PO daily in place of Lasix. [place] is new for him and he will [...] (DAPT) Recommendations above ? TTE from [facility] 12/08/21 ?? 07/28/2019 Echocardiogram: SUMMARY: [...] regurgitation present. 07/07/2019 - 07/21/2019 Zio Patch Elastic Attacher Coverstitch The patient had a minimum heart rate [...] hyperkalemia 4.9 today 6. Post-op atrial fibrillation [id number] (CHF, HTN, DM, vascular disease, thromboembolism) [...] MD [facility] [address], [place] [address] (Wo rk) 05/28/2022 Laboratory Appointment Lab 05/28/2022 Office Visit Cardiology Zulma Dolan MD [facility] [place] [address] Liz Poole PA [facility] [place] [address] 06/10/2022 Office Visit Dermatology Laura Scherer MD [facility] ER DR [address] [place], [place] [address] (Mikayla alcaraz) documented as of this encounter Results (ABNORMAL) pro-Brain Natriuretic Peptide (12/25/2021 7:46 AM EDT) athologist Signature ProBNP 1,380 (H) <=[address] [facility] [address] [facility] pg/mL [facility] LABORATORY Specimen Anatomical Collection Method Collection Time Receive d Time (Source) Location / / Volume Laterality Blood 12/25/2021 7:46 AM 8:01 EDT AM EDT Resulting Agency Comment Spec In Lab Zulma Plunkett MD CHEMISTRY ORDERABLES Performing Organization Address City/State/ZIP [place] [address] (ABNORMAL) Basic Metabolic Panel (non-fasting) (12/25/2021 7:46 AM EDT) athologist Signature Glucose Lvl 272 (H) 65 - 199 [facility] mg/dL [facility] LABOR[facility]ORY Comment: Diabetes: >=200 mg/dL [...] Organization Address City/State/ZIP [place] [address] documented in this encounter Visit Diagnoses Diagnosis Chronic systolic heart failure documented in this encounter Care Teams Gun Repair Clerk Relationship Specialty Start Date End Date Lovely Vicente MD PCP - General 04/16/[address] [place] [address] documented as of this encounter
--- OUTSIDE RECORDS SUMMARY | 2022-04-17 08:20 | XMS_ITS | Encounter Summary ---
:1945 Author Organization [facility] [address] Care Team Providers Name Role Phone Lovely Vicente MD Primary Care Provider Reason for Referral Consultation (Routine) - Closed Specialty Diagnoses / Referred By Contact Referred To Contact Procedures Cardiac Rehabilitation Diagnoses Acute HFrEF (heart failure with reduced ejection fraction) Janneth Padilla, Cardiac Rehab, [address] [place] CARDIOLOGY DEPT. [address] [place] [address] Referral ID Status Reason Start Date Expiration Date Visits V isits Requested Authorized [id number] Closed Consult, 12/12/2021 12/12/2022 36 36 Test & Treat Reason for Visit Auth/Cert Specialty Diagnoses / Procedures Referred By Contact Refer red To Contact Diagnoses NSTEMI Procedures emerg ipi Referral ID Status Reason Start Date Expiration Date Visits Requ ested Visits Authorized [id number] 1 1 Encounter Details Date Type Department Care Team Description 12/08/2021 - Hospital Encounter Intermediate Cardiac Iker Cuevas MD [facility] [place] [address] Non-ST elevation myocardial infarction ( NSTEMI); 12/12/2021 Care Unit Ifeanyi Rene MD [facility] [place] [address] ST elevation myocardial infarction (STEM I), unspecified artery; [facility] Acute HFr EF (heart failure with reduced ejection fraction) [place] [address] Social History Tobacco Use Types Packs/Day Years [...] Don Fatima Patient Age: 76 y.o. Language: Estonian Race: White Ethnicity: Not nor Admit date: 12/08/2021 Discharge date and time: 12/12/2021 7:58 AM Attending Physician: Iker Cuevas MD Discharge Physician: Dr. Ceuvas Follow-up Recommendations for Providers: ?? Patient weighs [...] Peter PA-C Kelly LaFlamme PA-C Cardiovascular Medicine [phone] Discharge Diagnoses (Hospital Problems) and Secondary Diagnoses [...] 3.75 guiding catheter and a 3.5 Fr [place] 20 Mhz using Manual pullback. Imaging was successful. Image quality was good. The ostial LCX showed moderate diffuse atherosclerotic plaque with scattered three quadrant calcification. Measurements were performed after pre-dilation. Post Intervention: The stent was well expanded and apposed. Intravascular Ultrasound was performed in the distal LM using a 7 Fr EBU 3.75 guiding catheter and a 3.5 Fr [place] [facility] [place] 20 Mhz using Manual pullback. Imaging was [...] of the LCX. This was a de ef lesion. According to the ACC/AHA classification system, [...] may require modification of this regimen. Consult [facility] Interventional Cardiology [...] vascular congestion and cardiomegaly. ?? TTE from [facility] 12/08/21 ? Prior Cardiac Studies: TTE 07/28/2019 [...] prior thyroidectomy in 2012 who presented to [facility] with 1 week progressing breathlessness with patient [...] 03/2021 with Liz Poole PA-C. ?? At [facility], respiratory distress with hypoxia 86% on room [...] mg PO daily in place of lasix. Advance is new for him and he will [...] to be ~$24/mo; affordable per patient. Post [facility] he was started on Eliquis. [...] appointments: During 8am-5pm Wednesday through Wednesday call [phone] to speak with a nurse in the cardiology clinic All other times call [phone] and ask to speak to the shipping and receiving assistant periodontal assistant. Return to work: One week Driving: No driving for 48 hours after catheterization. Follow up Appointments: PCP Lovely Vicente MD [phone] to see patient at the end of December for annual check up. Patient to see Dr. Lorenzana at 1120 am at December 19 for a post hospital check up. Solder Making Supervisor Dr. De Oliveira to see you in [facility]. Left a message for office to set a date and time. Please call [phone] Nobles to see the patient for a same day cath in 2-3 weeks from now. Office to call with a date and time. For questions please call [phone] Home oxygen therapy: N/A Arrangements for VNA/home care: none Future Appointments and Orders Future Orders Complete By Expires Basic Metabolic Panel (non-fasting) [LAB15 Custom] 12/19/2021 (Approximate) 12/12/2022 Process Instructions: INCLUDES: Calcium, BUN, Creat, GFR, Glucose, Lytes Scheduling Instructions: Comments: Questions: Referral to Cardiac Rehab [KBA055 Custom] As directed Process Instructions: If no [...] appointments: During 8am-5pm Wednesday through Wednesday call [phone] to speak with a nurse in the cardiology clinic All other times call [phone] and ask to speak to the shipping and receiving assistant periodontal assistant. Return to work: One week Driving: No driving for 48 hours after catheterization. Follow up Appointments: PCP Lovely Vicente MD [phone] to see patient at the end of December for annual check up. Patient to see Dr. Lorenzana at 1120 am at December 19 for a post hospital check up. Solder Making Supervisor Dr. De Oliveira to see you in [facility]. Left a message for office to set a date and time. Please call [phone] Nobles to see the patient for a same day cath in 2-3 weeks from now. Office to call with a date and time. For questions please call [phone] Home oxygen therapy: N/A Arrangements for VNA/home [...] Progress Note Patient Name: Don Fatima Service: COLLIERY CLERK / PA Responsible Attending: Ifeanyi Truong MD [...] given Lasix 80mg IV x1 in laboratory helper. Tolerated procedure well. Home today at 11 [...] TROPONINT 1.13* 0.92* 0.89* Pertinent Radiographic/Diagnostic Results: R/[facility] 12/10/21 Hemodynamics: Right Heart Pressures [...] pulmonary vascular congestion and cardiomegaly. TTE from [facility] 12/08/21 Prior Cardiac Studies: TTE 07/28/2019 SUMMARY: [...] with MD Janneth Neville PA 12/12/2021 Pager [phone] Associated attestation - Ifeanyi Truong MD - [...] ratio for each meal) Desirae Jett APRN [facility] Endocrinology Diabetes Management Pager [phone] 20 minutes of this 35 minute visit [...] Progress Note Patient Name: Don Fatima Service: COLLIERY CLERK / PA Responsible Attending: Iker Cuevas MD [...] given Lasix 80mg IV x1 in laboratory helper. Tolerated procedure well. Review of Systems: Review [...] TROPONINT 1.13* 0.92* 0.89* Pertinent Radiographic/Diagnostic Results: R/[facility] 12/10/21 Hemodynamics: Right Heart Pressures [...] pulmonary vascular congestion and cardiomegaly. TTE from [facility] 12/08/21 Prior Cardiac Studies: TTE 07/28/2019 SUMMARY: [...] answered his questions. Iker Cuevas MD [facility] Total time spent on review of records prior to visit, face to face time with patient during visit, documentation, and coordination of care with other clinicians: 25 minutes. . Iker Cuevas MD - 12/10/2021 12:30 PM EDT Images from the original note were not included. Inpatient Cardiology Progress Note Patient Name: Don Fatima Service: COLLIERY CLERK / PA Responsible Attending: Iker Cuevas MD [...] given Lasix 80mg IV x1 in laboratory helper. Tolerated procedure well. Review of Systems: Review [...] ??? heparin (porcine) infusion 1,600 Units/hr (12/09/21 3659) PRN Meds:ipratropium-albuteroL, senna-docusate, bisacodyL, sodium chloride 0.9 [...] TROPONINT 1.13* 0.92* 0.89* Pertinent Radiographic/Diagnostic Results: R/[facility] 12/10/21 Hemodynamics: Right Heart Pressures [...] pulmonary vascular congestion and cardiomegaly. TTE from [facility] 12/08/21 Prior Cardiac Studies: TTE 07/28/2019 SUMMARY: [...] Discussed with MD Migdalia Peter PA-C Pager #[phone] 12/10/2021 Cardiology Attending Note I have seen [...] and given pictures. Iker Cuevas MD [facility] Total time spent on review of records prior to visit, face to face time with patient during visit, documentation, and coordination of care with other clinicians: 35 minutes. Iker Cuevas MD - 12/09/2021 7:28 AM EDT Images from the original note were not included. Inpatient Cardiology Progress Note Patient Name: Don Fatima Service: COLLIERY CLERK / PA Responsible Attending: Iker Cuevas MD [...] ??? heparin (porcine) infusion 1,600 Units/hr (12/09/21 6233) PRN Meds:ipratropium-albuteroL, sodium chloride 0.9 % (flush), [...] pulmonary vascular congestion and cardiomegaly. TTE from [facility] 12/08/21 Prior Cardiac Studies: TTE 07/28/2019 SUMMARY: [...] Discussed with MD Migdalia Peter PA-C Pager #[phone] 12/09/2021 Cardiology Attending Note I have seen and examined the patient. I agree with the findings above. Developed CHF early this am despite getting more iv lasix last evening. Feeling better now. INR > 2. Lungs still wet at base. Echo at [facility] showed EF 35% with mild mod MR slightly lower than last value here. -vit K 2.5 orally to facilitate correction of INR- this will take 12-24 hours to take effect -furosemide 80 mg iv now -postpone right and left heart cath until tomorrow given INR and ADHF -increase statin to achieve LDL < 70 -CPAP tonight Iker Cuevas MD [facility] Total time spent on review of [...] y.o. Hospital Admit Date: 12/08/2021 Inpatient Attending: kIer Cuevas MD PCP: Lovely Vicente MD Presenting [...] prior thyroidectomy in 2012 who presented to [facility] with 1 week progressing breathlessness with patient [...] visit 03/2021 with Liz Poole PA-C. At [facility], respiratory distress with hypoxia 86% on room [...] [facility] ENDOSCOPY ??? PRO DRESSING CHANGE [...] [facility] MAIN OR Significant Family History: [...] (H) 65 - 199 mg/dL Labs at [facility] 12/08/2021-troponin I 8004 (UN L <60), 12/07- [...] Monitor for ADRs. Trend troponins. Admission EKG. [facility] 12/09; consented. TTE. Telemetry monitoring, [...] code #Diet-carb control; n.p.o. after midnight for [facility] #DVT prophy- heparin infusion #GI prophy- PPI Discussed with MD Morgan Peter PA-C APP2 pager [phone] 12/08/2021 Cardiology Attending Note I have seen [...] is type 1 due to graft or mechoopda coronary stenosis vs acute injury from CHF. 3. PAF: currrently in NSR. Have replaced warfarin with heparin 4. PAD: stable 5. DM: stable 6. CKD: will monitor and minimize contrast. Pt very appreciative of Dr. Yuan Retana's care in 2018. Will let him know patient is here. Iker Cuevas MD [facility] documented in this encounter Miscellaneous Notes [...] Type: *No Product type* / Secondary Insurance: [employer] [place] Prescription Coverage: Yes This plan was [...] cath without complications. Migdalia Parker PA-C Pager #[phone] 12/10/2021 Initial Assessments - Nick Georges RN [...] COVID test: Lab Results Component Value Date [id number] Not Detected 12/08/2021 Past medical History: Past [...] 180 days) Any patient receiving care at [facility] must abide by [place] law. The hierarchy [...] (i) The agent with financial power of privacy attorney or a conservator appointed in accordance [...] standard, cane - straight Home Address: [address] [place] [address] [place] [address] Social & Family Supports: All names listed below confirmed with patient as current and correct Extended Emergency Contact Information Primary Emergency Contact: Kisha Fatima Address: [address] [place] [address] [place] [address] [facility] Mobile Relation: Spouse Secondary Emergency Contact: Elba Swenson Address: [address] [place] Relation: Child Current Care Provided [...] Type: *No Product type* / Secondary Insurance: [facility] Prescription Coverage: Yes Preferred Pharmacy: [facility] Home Delivery [facility] [address] [address] - [address] [address] [place] Status: Patient is a : unable to assess Primary Care Provider: Lovely Vicente MD [phone] Patient/Caregiver Goals of Treatment: Get out of here Potential Needs for Transition of Care: none Agency Referrals: none patient has used [facility] in the past Transportation: no concerns Transportation Anticipated: family or friend will provide Concerns to be Addressed: patient refuses services, discharge planning Assessment: Patient is admitted to [facility] Service pager [phone] for 76 y.o.??male??with h/o??CAD s/p 3vCABG (THOMPSON-LAD, [...] status on current unit. Nick Georges RN hvac journeyman, Office of Care Management Pager: [phone] Brief Op Note - Vitaliy Nobles MD - 12/10/2021 8:31 AM EDT Images from the original note were not included. [facility] [place] [address] CORONARY ANGIOGRAM AND PERCUTANEOUS CORONARY INTERVENTION REPORT Patient: Don Fatima : 1945 MR number: [id number] Date of Service: 12/10/2021 Credit Products Officer: Vitaliy Nobles MD Fellow: [place] [...] management and to provide a review of dance master diabetes care. Diabetes History: Don Fatima has had diabetes for 10 years. He has been on insulin for the last several years andis managed by his PCP. Lives in [place], [place] with his . States that he [...] Hold] heparin (porcine) infusion 1,600 Units/hr (12/09/21 3919) PRN: [SEP Hold] ipratropium-albuteroL, [SEP Hold] senna-docusate, [...] 5 gm carb ratio for each meal) alf diabetes care: Medications - Outpatient treatment regimen recommendations pending based on the hospital course. Monitoring - continue BG tid ac & hs Diet - low fat/low carb diet Exercise - weight-bearing exercise 30 min/day, as tolerated Thank you for allowing us to provide care for your patient Desirae Shaper DOCTOR OF DENTAL SURGERY Endocrinology Pager [phone] 70 minutes of this [...] to remain on Med/Surg floor, please page [phone] for any further questions or concerns. LANDON [...] for further details. STEPHANIE Rebolledo 12/08/2021 Pager [phone] documented in this encounter Plan of Treatment Upcoming Encounters Date Type Specialty Care Team Description 05/28/2022 Appointment Cardiology Zulma Dolan MD [facility] [place], [place] [address] (Wo rk) 05/28/2022 Laboratory Appointment Lab 05/28/2022 Office Visit Cardiology Zulma Dolan MD [facility] [place] [address] Liz Poole PA [facility] [place] [address] 06/10/2022 Office Visit Dermatology Laura Scherer MD [facility] [address] [place], [place] [address] (Wo rk) Scheduled Referrals Name [...] POC Glucose 215 (H) 65 - 199 [facility] mg/dL [facility] Comment: Supplemental ranges: <140 mg/dL before meals <180 mg/dL all other times of the day Specimen Anatomical Collection Method Collection Time Receive d Time (Source) Location / / Volume Laterality Blood 12/12/2021 7:42 AM 7:42 EDT AM EDT Ifeanyi Truong MD POINT OF CARE TEST ORDERABLE S Performing Organization Address City/State/Z[place] [address] (ABNORMAL) Differential, Automated (12/12/2021 4:51 AM EDT) athologist Signature Neutrophils % 75.4 % [facility] Neutr Abs (ANC) 5.95 1.70 - [facility] 6.10 [facility] x10(3)/[facility] LABORATORY Lymphocytes % 12.2 % [facility] Lymphocytes Abs 1.0 0.9 - 3.2 [facility] x10(3)/[facility] LABORATORY Monocytes % 9.5 % [facility] Monocyte Abs 0.8 0.3 - 0.9 [facility] x10(3)/[facility] LABORATORY Eosinophils % 1.8 % [facility] Eosinophils Abs 0.1 0.0 - 0.4 [facility] x10(3)/[facility] LABORATORY Basophils % 0.5 % [facility] Basophils Abs 0.0 0.0 - 0.1 [facility] x10(3)/[facility] LABORATORY Immature Gran % 0.60 % [...] Gran Abs 0.05 (H) 0.00 - 0.04 x10(3)/[facility] LABORATORY Specimen Anatomical Collection Method Collection Time Receive d Time (Source) Location / / Volume Laterality Blood 12/12/2021 4:51 AM 2 5:06 EDT AM EDT Resulting Agency Comment Spec In Lab Bijan Sun MD HEMATOLOGY ORDERABLES Performing Organization Address City/State/ZIP [place] [address] (ABNORMAL) Hemogram (12/12/2021 4:51 AM EDT) Analysis Performed At Patho logist Time Signature WBC 7.9 4.0 - 9.5 [facility] x10(3)/[facility] LABORATORY RBC 4.19 (L) 4.58 - [facility] 5.54 [facility] x10(6)/[facility] LABORATORY Hemoglobin 12.1 (L) 13.7 - [facility] 16.[facility] g/dL [facility] Hematocrit 36.7 (L) 40.5 - [facility] 48.5 % [facility] MCV 87.6 82.9 - [facility] 93.1 fL [facility] MCH 28.9 27.5 - [facility] 32.1 pg [facility] MCHC 33.0 32.0 - [facility] 35.7 g/dL [facility] Platelets 231 145 - 357 [facility] x10(3)/[facility] LABORATORY RDWSD 47.2 (H) 36.0 - [place] [facility] 45.0 [facility] LABORATORY RDWCV 14.6 (H) 11.4 - [facility] 13.8 % [facility] MPV 9.5 7.6 - 12.9 [facility] LABORATORY nRBC % Auto 0.0 % [facility] nRBC Abs Auto 0.000 0.000 - [place] 0.000 [facility] x10(3)/[facility] LABORATORY Specimen Anatomical Collection Method Collection Time Receive d Time (Source) Location / / Volume Laterality Blood 12/12/2021 4:51 AM 2 5:06 EDT AM EDT Resulting Agency Comment Spec In Lab Bijan Sun MD HEMATOLOGY ORDERABLES Performing Organization Address City/[facility]/[place] [address] (ABNORMAL) Prothrombin Time (12/12/2021 4:51 AM EDT) P athologist Signature PT 14.9 (H) 9.4 - 12.5 [facility] LABORATORY INR 1.3 [facility] Cuevas MD HEMATOLOGY ORDERABLES Performing Organization Address City/[facility]/[place] [address] (ABNORMAL) BMP w/fasting Glucose (12/12/2021 4:51 AM EDT) athologist Signature Glucose 152 (H) 65 - 99 [facility] Fasting mg/dL [facility] Comment: ?Fasting* Glucose Interpretive C [...] of Diabetes Mellitus, Position Statement from the [place] [employer]. ??Diabete s Care, Volume 33, [...] Address City/State/[place] [address] Magnesium (12/12/2021 4:51 AM EDT) P athologist Signature Magnesium 1.02 0.69 - 1.07 [facility] mmol/L [facility] Specimen Anatomical Collection Method Collection Time Receive d Time (Source) Location / / Volume Laterality Blood 12/12/2021 4:51 AM 2 5:06 EDT AM EDT Resulting Agency Comment Spec In Lab Iker Cuevas MD CHEMISTRY ORDERABLES Performing Organization Address City/[facility]/[place] [address] POCT Glucose (12/12/2021 3:43 AM EDT) P athologist Signature POC Glucose 138 65 - 199 [facility] mg/dL [facility] Comment: Supplemental ranges: <140 mg/dL before meals <180 mg/dL all other times of the day Specimen Anatomical Collection Method Collection Time Receive d Time (Source) Location / / Volume Laterality Blood 12/12/2021 3:43 AM 2 3:43 EDT AM EDT Iker Cuevas MD POINT OF CARE TEST ORDERABLE S Performing Organization Address City/State/[place] [address] POCT Glucose (12/11/2021 11:44 PM EDT) athologist Signature POC Glucose 124 65 - 199 [facility] mg/dL [facility] Comment: Supplemental ranges: <140 mg/dL before meals <180 mg/dL all other times of the day Specimen Anatomical Collection Method Collection Time Receive d Time (Source) Location / / Volume Laterality Blood 12/11/2021 11:44 12/11/2021 PM EDT 11:44 PM EDT Iker Cuevas MD POINT OF CARE TEST ORDERABLE S Performing Organization Address City/[facility]/[place] [address] (ABNORMAL) POCT Glucose (12/11/2021 8:12 PM EDT) athologist Signature POC Glucose 200 (H) 65 - 199 [facility] mg/dL [facility] Comment: Supplemental ranges: <140 mg/dL before meals <180 mg/dL all other times of the day Specimen Anatomical Collection Method Collection Time Receive d Time (Source) Location / / Volume Laterality Blood 12/11/2021 8:12 PM 2 8:12 EDT PM EDT Iker Cuevas MD POINT OF CARE TEST ORDERABLE S Performing Organization Address City/[facility]/[place] [address] (ABNORMAL) POCT Glucose (12/11/2021 6:50 PM EDT) athologist Signature POC Glucose 245 (H) 65 - 199 [place] [place] mg/dL [facility] Comment: Supplemental ranges: <140 mg/dL before meals <180 mg/dL all other times of the day Specimen Anatomical Collection Method Collection Time Receive d Time (Source) Location / / Volume Laterality Blood 12/11/2021 6:50 PM 2 6:50 EDT PM EDT Iker Cuevas MD POINT OF CARE TEST ORDERABLE S Performing Organization Address City/State/[place] [address] (ABNORMAL) POCT Glucose (12/11/2021 4:00 PM EDT) P athologist Signature POC Glucose 383 (H) 65 - 199 [facility] mg/dL [facility] Comment: Supplemental ranges: <140 mg/dL before meals <180 mg/dL all other times of the day Specimen Anatomical Collection Method Collection Time Receive d Time (Source) Location / / Volume Laterality Blood 12/11/2021 4:00 PM 4:00 EDT PM EDT Iker Cuevas MD POINT OF CARE TEST ORDERABLE S Performing Organization Address City/[facility]/[place] [address] (ABNORMAL) POCT Glucose (12/11/2021 12:01 PM EDT) athologist Signature POC Glucose 342 (H) 65 - 199 [facility] mg/dL [facility] Comment: Supplemental ranges: <140 mg/dL before meals <180 mg/dL all other times of the day Specimen Anatomical Collection Method Collection Time Receive d Time (Source) Location / / Volume Laterality Blood 12/11/2021 12:01 12/11/2021 PM EDT 12:01 PM EDT Iker Cuevas MD POINT OF CARE TEST ORDERABLE S Performing Organization Address City/[facility]/[place] [address] COVID-19 PCR (12/11/2021 10:13 AM EDT) [facility] gist Method Time Signature SARS-CoV-2 Not [...] diagnosis of COVID-19 is performed using the [employer]ian[employer] FRIEND S-CoV-2 Assay as authorized by the FDA Emergency Use Authorization (EUA). This EUA assay is intended for In-vitro Diagnostic (IVD) use with respiratory sp ecimens such as nasopharyngeal swabs collected from individuals during the ac [place] phase of infection. This assay is performed based on the instructions for use provided by [employer] and additional guidance provided by CDC [...] fact sheets at the following FDA website: https://www.fda.gov/medical-devices/nfeqghsnegx-dovnzio-5813-xzcwt-74-vkeebluvw- pkh-cmbjirdwlpygfu-dbdsmhz-devices/cawkj-ydtipcnjrib-hkvy SARS-Cov-2 RNA Source COLLIERY CLERK Swab [facility] Specimen (Source) Anatomical Collection Method Collection Time Re ceived Time Location / / Volume Laterality Nasopharyngeal Swab 12/11/2021 10:13 05/03/2022 AM EDT 11:16 AM EDT Comment: Symptoms->Surveillance Resulting Agency Comment Spec In Lab Iker Cuevas MD MICROBIOLOGY - GENERAL ORDER [place] Performing Organization Address City/[facility] [place] [address] POCT Glucose (12/11/2021 7:34 AM EDT) athologist Signature POC Glucose 198 65 - 199 [facility] mg/dL [facility] LABORATORY Comment: Supplemental ranges: <140 mg/dL before meals <180 mg/dL all other times of the day Specimen Anatomical Collection Method Collection Time Receive d Time (Source) Location / / Volume Laterality Blood 12/11/2021 7:34 AM 2 7:34 EDT AM EDT Iker Cuevas MD POINT OF CARE TEST ORDERABLE S Performing Organization Address City/[facility]/[place] [address] (ABNORMAL) POCT Glucose (12/11/2021 5:07 AM EDT) P athologist Signature POC Glucose 208 (H) 65 - 199 [facility] mg/dL [facility] Comment: Supplemental ranges: <140 mg/dL before meals <180 mg/dL all other times of the day Specimen Anatomical Collection Method Collection Time Receive d Time (Source) Location / / Volume Laterality Blood 12/11/2021 5:07 AM 2 5:07 EDT AM EDT Iker Cuevas MD POINT OF CARE TEST ORDERABLE S Performing Organization Address City/[facility]/ZIP [place] [address] (ABNORMAL) Differential, Automated (12/11/2021 4:28 AM EDT) [facility] Method Time Signature Neutrophils % 79.6 % [facility] LABORATORY Neutr Abs (ANC) 7.01 (H) 1.70 - [facility] 6.10 [facility] x10(3)/[facility] L LABORATORY Lymphocytes % 9.1 % [facility] LABORATORY Lymphocytes Abs 0.8 (L) 0.9 - 3.2 [facility] x10(3)/[facility] LABORATORY Monocytes % 9.2 % [facility] LABORATORY Monocyte Abs 0.8 0.3 - 0.9 [facility] x10(3)/[facility] LABORATORY Eosinophils % 1.3 % [facility] LABORATORY Eosinophils Abs 0.1 0.0 - 0.4 [facility] x10(3)/[facility] LABORATORY Basophils % 0.5 % [facility] LABORATORY Basophils Abs 0.0 0.0 - 0.1 [facility] x10(3)/[facility] LABORATORY Immature Gran % 0.30 [...] Abs 0.03 0.00 - 0.04 x10(3)/[facility] LABORATORY Specimen Anatomical Collection Method Collection Time Receive d Time (Source) Location / / Volume Laterality Blood 12/11/2021 4:28 AM 4:37 EDT AM EDT Resulting Agency Comment Spec In Lab Bijan Sun MD HEMATOLOGY ORDERABLES Performing Organization Address City/[facility]/ZIP [place] [address] (ABNORMAL) Hemogram (12/11/2021 4:28 AM EDT) Analysis Performed At Patho logist Time Signature WBC 8.8 4.0 - 9.5 [facility] x10(3)/[facility] LABORATORY RBC 4.15 (L) 4.58 - [facility] 5.54 [facility] x10(6)/[facility] LABORATORY Hemoglobin 11.9 (L) 13.7 - [facility] 16.5 g/dL [facility] LABORATORY Hematocrit 36.9 (L) 40.5 - [facility] 48.5 % [facility] LABORATORY MCV 88.9 82.9 - [facility] 93.1 [facility] LABORATORY MCH 28.7 27.5 - [facility] 32.1 pg [facility] LABORATORY MCHC 32.2 32.0 - [facility] 35.7 g/dL [facility] LABORATORY Platelets 211 145 - 357 [facility] x10(3)/[facility] LABORATORY RDWSD 48.3 (H) 36.0 - [facility] 45.0 [facility] LABORATORY RDWCV 14.8 (H) 11.4 - [facility] 13.8 % [facility] LABORATORY MPV 9.6 7.6 - 12.9 [facility] LABORATORY nRBC % Auto 0.0 % [facility] LABORATORY nRBC Abs Auto 0.000 0.000 - [facility] 0.000 [facility] x10(3)/[facility] LABORATORY Specimen Anatomical Collection Method Collection Time Receive d Time (Source) Location / / Volume Laterality Blood 12/11/2021 4:28 AM 2 4:37 EDT AM EDT Resulting Agency Comment Spec In Lab Bijan Sun MD HEMATOLOGY ORDERABLES Performing Organization Address City/State/ZIP [place] [address] (ABNORMAL) Prothrombin Time (12/11/2021 4:28 AM EDT) P athologist Signature PT 17.7 (H) 9.4 - 12.5 [facility] LABORATORY INR 1.6 [facility] Address City/State/[place] [address] (ABNORMAL) BMP w/fasting Glucose (12/11/2021 4:28 AM EDT) athologist Signature Glucose 207 (H) 65 - 99 [facility] Fasting mg/dL [facility] LABORATORY Comment: ?Fasting* Glucose Interpretive C [...] of Diabetes Mellitus, Position Statement from the [employer]. ??Diabete s Care, Volume 33, [...] Cuevas MD CHEMISTRY ORDERABLES Performing Organization Address City/[facility] [place] [address] Magnesium (12/11/2021 4:28 AM EDT) P athologist Signature Magnesium 1.04 0.69 - 1.07 [facility]/L [facility] LABORATORY Specimen Anatomical Collection Method Collection Time Receive d Time (Source) Location / / Volume Laterality Blood 12/11/2021 4:28 AM 2 4:37 EDT AM EDT Resulting Agency Comment Spec In Lab Iker Cuevas MD CHEMISTRY ORDERABLES Performing Organization Address City/State/ZIP Code Phon e Number [place] [id number] POCT Glucose (12/11/2021 3:58 AM EDT) athologist Signature POC Glucose 189 65 - 199 [place] mg/dL [facility] LABOR[facility]ORY Comment: Supplemental ranges: <140 mg/dL before meals <180 mg/dL all other times of the day Specimen Anatomical Collection Method Collection Time Receive d Time (Source) Location / / Volume Laterality Blood 12/11/2021 3:58 AM 2 3:58 EDT AM EDT Iker Cuevas MD POINT OF CARE TEST ORDERABLE S Performing Organization Address City/[facility]/[place] [address] (ABNORMAL) POCT Glucose (12/10/2021 11:45 PM EDT) athologist Signature POC Glucose 205 (H) 65 - 199 [place] [place] mg/dL [facility] Comment: Supplemental ranges: <140 mg/dL before meals <180 mg/dL all other times of the day Specimen Anatomical Collection Method Collection Time Receive d Time (Source) Location / / Volume Laterality Blood 12/10/2021 11:45 12/10/2021 PM EDT 11:45 PM EDT Iker Cuevas MD POINT OF CARE TEST ORDERABLE S Performing Organization Address City/[facility]/[place] [address] (ABNORMAL) POCT Glucose (12/10/2021 7:54 PM EDT) athologist Signature POC Glucose 225 (H) 65 - 199 [place] mg/dL [facility] LAB[facility] Comment: Supplemental ranges: <140 mg/dL before meals <180 mg/dL all other times of the day Specimen Anatomical Collection Method Collection Time Receive d Time (Source) Location / / Volume Laterality Blood 12/10/2021 7:54 PM 2 7:54 EDT PM EDT Iker Cuevas MD POINT OF CARE TEST ORDERABLE S Performing Organization Address City/State/ZIP [place] [address] Potassium (12/10/2021 7:46 PM EDT) athologist Signature Potassium 4.2 3.5 - 5.0 [facility] mmol/L [facility] LABORATORY Comment: Please note: ??Patients with [...] Cuevas MD CHEMISTRY ORDERABLES Performing Organization Address City/[facility]/[place] [address] (ABNORMAL) Basic Metabolic Panel (non-fasting) (12/10/2021 6:12 PM EDT) athologist Signature Glucose Lvl 246 (H) 65 - 199 [facility] mg/dL [facility] LAB[facility] Comment: Diabetes: >=200 mg/dL plus [...] Cuevas MD CHEMISTRY ORDERABLES Performing Organization Address City/[facility]/ZIP [place] [address] POCT Glucose (12/10/2021 4:59 PM EDT) P athologist Signature POC Glucose 158 65 - 199 [facility] mg/dL [facility] Comment: Supplemental ranges: <140 mg/dL before meals <180 mg/dL all other times of the day Specimen Anatomical Collection Method Collection Time Receive d Time (Source) Location / / Volume Laterality Blood 12/10/2021 4:59 PM 2 4:59 EDT PM EDT Iker Cuevas MD POINT OF CARE TEST ORDERABLE S Performing Organization Address City/State/ZIP [place] [address] (ABNORMAL) POCT Glucose (12/10/2021 12:43 PM EDT) P athologist Signature POC Glucose 241 (H) 65 - 199 [place] mg/dL [facility] LAB[facility] Comment: Supplemental ranges: <140 mg/dL before meals <180 mg/dL all other times of the day Specimen Anatomical Collection Method Collection Time Receive d Time (Source) Location / / Volume Laterality Blood 12/10/2021 12:43 12/10/2021 PM EDT 12:43 PM EDT Iker Cuevas MD POINT OF CARE TEST ORDERABLE S Performing Organization Address City/State/ZIP Code Phon e Number [facility] [address] EKG 12 Lead (12/10/2021 11:17 AM EDT) Component Value Ref Range Test Analysis Performed Pathologis t Method Time At Signature Ventricular rate 62 BPM MUSE SYSTEM Atrial Rate 62 BPM MUSE SYSTEM P-R Interval 142 ms MUSE SYSTEM QRS Duration 100 ms MUSE SYSTEM Q-T Interval 434 ms MUSE SYSTEM QTC Calculated 440 ms MUSE SYSTEM (Bezet) Calculated P Castell 34 degrees MUSE SYSTEM Calculated R Castell -39 degrees MUSE SYSTEM Calculated T Castell 92 degrees MUSE SYSTEM INTERPRETATION Normal sinus [...] Laterality Volume Narrative 12/10/2021 12:04 PM EDT ?[facility] ? Cardiac Cathete rization/Intervention Report ? Patient Name: Don Fatima. ? Procedure Date: 12/10/2021 ? A #: [id number] ? Primary Physician: Nobles, Vitaliy P ? Case #: [id number] ? File Name: [id number] ? Catheterization Order Number: [id number] ? [facility] ? Final Report [place], [place] ? Patient Name: ? Don E. Stewa rt ? ID#: ?[id number] ? : ?1945 ? Procedure Date: ? December 10, 2021 ? Case #: ? [id number] ? Room: ? 1 ? Case Physician: [...] was ?designated as ASA Class III. e [facility] clinical frailty scale is 5: [...] was Urgent. The indication for ?the laboratory helper visit is ACS great er than 24 [...] ?3.75 guiding catheter and a 3.5 Fr [facility] 20 Mhz using Manual ?pullback. ??Imaging was [...] ?3.75 guiding catheter and a 3.5 Fr [facility] 20 Mhz using Manual ?pullback. ??Imaging was [...] may require ?modification of this regimen. C [facility] Interventional Cardiology for ?questions. ?The [...] Procedure Note Vitaliy Nobles MD - 01/14/2022 [facility] Cardiac Catheterization/Intervention Re port Patient Name: Kushal Don VdeaMadiha Procedure Date: 12/10/2021 A #: [id number] Primary Physician: Vitaliy Nobles Case #: [id number] File Name: [id number] Catheterization Order Number: [id number] [facility] Final Report [place], [place] Patient Name: Don Fatima ID#: [...] was Urgent. The indication for the laboratory helper visit is ACS greater than 24 hrs [...] and a 3.5 Fr [facility] 20 Mhz using Manual pullback. Imaging was [...] and a 3.5 Fr [facility] 20 Mhz using Manual pullback. Imaging was successful. Image quality was good. The distal LM showed moderate diffuse atherosclero tic plaque. Post Intervention: The stent was well e xpanded and apposed. Indication for Intervention: Coronary intervention was indicated for primary therapy for an acute myocardial infarction. The priority for the procedure was Urgent. The [facility] indication for the procedure was [...] POC Glucose 262 (H) 65 - 199 [facility] mg/dL [facility] Comment: Supplemental ranges: <140 mg/dL before meals <180 mg/dL all other times of the day Specimen Anatomical Collection Method Collection Time Receive d Time (Source) Location / / Volume Laterality Blood 12/10/2021 10:30 12/10/2021 AM EDT 10:30 AM EDT Iker Cuevas MD POINT OF CARE TEST ORDERABLE S Performing Organization Address City/State/ZIP [place] [address] (ABNORMAL) POCT Glucose (12/10/2021 9:48 AM EDT) athologist Signature POC Glucose 279 (H) 65 - 199 [facility] mg/dL [facility] Comment: Supplemental ranges: <140 mg/dL before meals <180 mg/dL all other times of the day Specimen Anatomical Collection Method Collection Time Receive d Time (Source) Location / / Volume Laterality Blood 12/10/2021 9:48 AM 9:48 EDT AM EDT Iker Cuevas MD POINT OF CARE TEST ORDERABLE S Performing Organization Address City/State/[place] [address] (ABNORMAL) POCT Glucose (12/10/2021 9:07 AM EDT) P athologist Signature POC Glucose 268 (H) 65 - 199 [facility] mg/dL [facility] Comment: Supplemental ranges: <140 mg/dL before meals <180 mg/dL all other times of the day Specimen Anatomical Collection Method Collection Time Receive d Time (Source) Location / / Volume Laterality Blood 12/10/2021 9:07 AM 9:07 EDT AM EDT Iker Cuevas MD POINT OF CARE TEST ORDERABLE S Performing Organization Address City/State/[place] [address] (ABNORMAL) Point of Care Blood Gas Historical (12/10/2021 9:04 AM EDT) Patholo gist Method Time Signature POC pH 7.40 7.35 - [facility] 7.45 [facility] LABORATORY POC PCO2 40 35 - 45 [facility] mmHg [facility] LABORATORY POC PO2 63 (L) 85 - 104 [facility] LABORATORY POC Base Excess 0.0 -3.0 - 3.0 [facility] mmol/L [facility] LABORATORY POC HCO3 24.8 20.0 - [facility] 26.0 [facility] mmol/[facility] LABORATORY POC Sodium 143 135 - 145 [facility] mmol/L [facility] LABORATORY POC Potassium 3.7 3.5 - 5.0 [facility] mmol/L [facility] LABORATORY POC Ionized Ca 1.07 (L) 1.15 - [facility] 1.33 [facility] mmol/L HOSPITAL LABORATORY POC Hematocrit 30.0 (L) 40.0 - [facility] 51.0 % [facility] LABORATORY POC Calc Hgb 10.2 (L) 13.7 - [facility] 17.5 g/dL [facility] LABOR[facility] Comment: The calculation of hemoglobin f rom hematocrit assumes a normal MCHC. POC Bgas Loc CC LAB [facility] LABORATORY Specimen Anatomical Collection Method Collection Time Receive d Time (Source) Location / / Volume Laterality Blood 12/10/2021 9:04 AM 2 EDT 12:00 PM EDT Ifeanyi Truong MD CHEMISTRY ORDERABLES Performing Organization Address City/[facility]/[place] [address] (ABNORMAL) POCT Glucose (12/10/2021 7:19 AM EDT) athologist Signature POC Glucose 274 (H) 65 - 199 [facility] mg/dL [facility] LABOR[facility]ORY Comment: Supplemental ranges: <140 mg/dL before meals <180 mg/dL all other times of the day Specimen Anatomical Collection Method Collection Time Receive d Time (Source) Location / / Volume Laterality Blood 12/10/2021 7:19 AM 2 7:19 EDT AM EDT Iker Cuevas MD POINT OF CARE TEST ORDERABLE S Performing Organization Address City/[facility]/[place] [address] Heparin (unfractionated) Level (12/10/2021 [...] Address City/State/ZIP Code Phon e Number [address] (ABNORMAL) Differential, Automated (12/10/2021 4:25 AM EDT) [facility] Method Time Signature Neutrophils % 79.8 % [facility] LABORATORY Neutr Abs (ANC) 7.47 (H) 1.70 - [facility] 6.10 [facility] x10(3)/[facility] LABORATORY Lymphocytes % 10.6 % [facility] LABORATORY Lymphocytes Abs 1.0 0.9 - 3.2 [facility] x10(3)/[facility] LABORATORY Monocytes % 8.4 % [facility] LABORATORY Monocyte Abs 0.8 0.3 - 0.9 [facility] x10(3)/[facility] LABORATORY Eosinophils % 0.6 % [facility] LABORATORY Eosinophils Abs 0.1 0.0 - 0.4 [facility] x10(3)/[facility] LABORATORY Basophils % 0.2 % [facility] LABORATORY Basophils Abs 0.0 0.0 - 0.1 [facility] x10(3)/[facility] LABORATORY Immature Gran % 0.40 [...] Morgan BROWN HEMATOLOGY ORDERABLES Performing Organization Address City/[facility]/ZIP Code Phon e Number [address] (ABNORMAL) Hemogram (12/10/2021 4:25 AM EDT) Analysis Performed At Patho logist Time Signature WBC 9.4 4.0 - 9.5 [facility] x10(3)/[facility] LABORATORY RBC 3.81 (L) 4.58 - [facility] 5.54 [facility] x10(6)/[facility] LABORATORY Hemoglobin 11.1 (L) 13.7 - [facility] 16.5 g/dL [facility] LABORATORY Hematocrit 34.0 (L) 40.5 - [facility] 48.5 % [facility] LABORATORY MCV 89.2 82.9 [facility].1 [facility] LABORATORY MCH 29.1 27.5 [facility] 32.1 pg [facility] LABORATORY MCHC 32.6 32.0 - [facility] 35.7 g/dL [facility] LABORATORY Platelets 183 145 - 357 [facility] x10(3)/[facility] LABORATORY RDWSD 49.9 (H) 36.0 - [facility] 45.0 [facility] LABORATORY RDWCV 15.2 (H) 11.4 [facility] 13.8 % [facility] LABORATORY MPV 9.8 7.6 - 12.9 [facility] LABORATORY nRBC % Auto 0.0 % [facility] LABORATORY nRBC Abs Auto 0.000 0.000 - [facility] 0.000 [facility] x10(3)/[facility] LABORATORY Specimen Anatomical Collection Method Collection Time Receive d Time (Source) Location / / Volume Laterality Blood 12/10/2021 4:25 AM 2 4:34 EDT AM EDT Resulting Agency Comment Spec In Lab Morgan BROWN HEMATOLOGY ORDERABLES Performing Organization Address City/State/ZIP [place] [address] (ABNORMAL) Prothrombin Time (12/10/2021 4:25 AM EDT) P athologist Signature PT 20.0 (H) 9.4 - 12.5 [facility] LABORATORY INR 1.7 [facility] City/State/ZIP Code Phon e Number [place] [id number] (ABNORMAL) BMP w/fasting Glucose (12/10/2021 4:25 AM EDT) athologist Signature Glucose 210 (H) 65 - 99 [facility] Fasting mg/dL [facility] LABORATORY Comment: ?Fasting* Glucose Interpretive C [...] of Diabetes Mellitus, Position Statement from the [employer]. ??Diabete s Care, Volume 33, [...] Address City/State/ZIP [place] [address] Magnesium (12/10/2021 4:25 AM EDT) P athologist Signature Magnesium 0.95 0.69 - 1.07 [facility]/L [facility] LABORATORY Specimen Anatomical Collection Method Collection Time Receive d Time (Source) Location / / Volume Laterality Blood 12/10/2021 4:25 AM 2 4:34 EDT AM EDT Resulting Agency Comment Spec In Lab Iker Cuevas MD CHEMISTRY ORDERABLES Performing Organization Address City/[facility]/[place] [address] POCT Glucose (12/10/2021 1:58 AM EDT) athologist Signature POC Glucose 164 65 - 199 [facility] mg/dL [facility] LABORATORY Comment: Supplemental ranges: <140 mg/dL before meals <180 mg/dL all other times of the day Specimen Anatomical Collection Method Collection Time Receive d Time (Source) Location / / Volume Laterality Blood 12/10/2021 1:58 AM 2 1:58 EDT AM EDT Iker Cuevas MD POINT OF CARE TEST ORDERABLE S Performing Organization Address City/[facility]/[place] [address] (ABNORMAL) POCT Glucose (12/09/2021 9:02 PM EDT) athologist Signature POC Glucose 313 (H) 65 - 199 [facility] mg/dL [facility] LABORATORY Comment: Supplemental ranges: <140 mg/dL before meals <180 mg/dL all other times of the day Specimen Anatomical Collection Method Collection Time Receive d Time (Source) Location / / Volume Laterality Blood 12/09/2021 9:02 PM 2 9:02 EDT PM EDT Iker Cuevas MD POINT OF CARE TEST ORDERABLE S Performing Organization Address City/[facility]/[place] [address] Heparin (unfractionated) Level (12/09/2021 [...] Address City/State/ZIP [place] [address] (ABNORMAL) Basic Metabolic Panel (non-fasting) (12/09/2021 7:30 PM EDT) athologist Signature Glucose Lvl 372 (H) 65 - 199 [facility] mg/dL [facility] LABORATORY Comment: Diabetes: >=200 mg/dL plus [...] Address City/State/[place] [address] (ABNORMAL) POCT Glucose (12/09/2021 6:34 PM EDT) P athologist Signature POC Glucose 408 (H) 65 - 199 [facility] mg/dL [facility] LAB[facility]ORY Comment: Supplemental ranges: <140 mg/dL before meals <180 mg/dL all other times of the day Specimen Anatomical Collection Method Collection Time Receive d Time (Source) Location / / Volume Laterality Blood 12/09/2021 6:34 PM 2 6:34 EDT PM EDT Iker Cuevas MD POINT OF CARE TEST ORDERABLE S Performing Organization Address City/[facility]/[place] [address] (ABNORMAL) POCT Glucose (12/09/2021 6:32 PM EDT) P athologist Signature POC Glucose 356 (H) 65 - 199 [facility] mg/dL [facility] LABORATORY Comment: Supplemental ranges: <140 mg/dL before meals <180 mg/dL all other times of the day Specimen Anatomical Collection Method Collection Time Receive d Time (Source) Location / / Volume Laterality Blood 12/09/2021 6:32 PM 2 6:32 EDT PM EDT Iker Cuevas MD POINT OF CARE TEST ORDERABLE S Performing Organization Address City/State/[place] [address] (ABNORMAL) POCT Glucose (12/09/2021 4:19 PM EDT) athologist Signature POC Glucose 347 (H) 65 - 199 [facility] mg/dL [facility] LABORATORY Comment: Supplemental ranges: <140 mg/dL before meals <180 mg/dL all other times of the day Specimen Anatomical Collection Method Collection Time Receive d Time (Source) Location / / Volume Laterality Blood 12/09/2021 4:19 PM 2 4:19 EDT PM EDT Iker Cuevas MD POINT OF CARE TEST ORDERABLE S Performing Organization Address City/[facility]/[place] [address] Heparin (unfractionated) Level (12/09/2021 [...] Address City/State/[place] [address] (ABNORMAL) POCT Glucose (12/09/2021 12:02 PM EDT) P athologist Signature POC Glucose 235 (H) 65 - 199 [facility] mg/dL [facility] LABORATORY Comment: Supplemental ranges: <140 mg/dL before meals <180 mg/dL all other times of the day Specimen Anatomical Collection Method Collection Time Receive d Time (Source) Location / / Volume Laterality Blood 12/09/2021 12:02 12/09/2021 PM EDT 12:02 PM EDT Iker Cuevas MD POINT OF CARE TEST ORDERABLE S Performing Organization Address City/[facility]/[place] [address] (ABNORMAL) POCT Glucose (12/09/2021 9:44 AM EDT) P athologist Signature POC Glucose 214 (H) 65 - 199 [facility] mg/dL [facility] LABORATORY Comment: Supplemental ranges: <140 mg/dL before meals <180 mg/dL all other times of the day Specimen Anatomical Collection Method Collection Time Receive d Time (Source) Location / / Volume Laterality Blood 12/09/2021 9:44 AM 9:44 EDT AM EDT Iker Cuevas MD POINT OF CARE TEST ORDERABLE S Performing Organization Address City/[facility]/[place] [address] EKG 12 Lead (12/09/2021 7:57 AM EDT) Component Value Ref Range Test Analysis Performed Pathologis t Method Time At Signature Ventricular rate 101 BPM MUSE SYSTEM Atrial Rate 101 BPM MUSE SYSTEM P-R Interval 150 ms MUSE SYSTEM QRS Duration 112 ms MUSE SYSTEM Q-T Interval 364 ms MUSE SYSTEM QTC Calculated 471 ms MUSE SYSTEM (Bezet) Calculated P Castell 59 degrees MUSE SYSTEM Calculated R Castell -42 degrees MUSE SYSTEM Calculated T Castell 102 degrees MUSE SYSTEM INTERPRETATION Sinus tachycardia Occasional Premature ventricular com plexes MUSE SYSTEM Left axis deviation 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) Abnormal ECG When compared with ECG of 08-DEC-2021 16:40, Premature ventricular complexes are now Present Confirmed by MD Fernandez Danette ([id number]) on 12/10/2021 4:55:06 PM Specimen Anatomical Collection Method Collection Time Receive d Time (Source) Location / / Volume Laterality 12/09/2021 7:57 AM 2 4:55 EDT PM EDT Iker Cuevas MD ECG ORDERABLES Performing Organization Address City/State/ZIP Code Phon e Number MUSE SYSTEM (ABNORMAL) POCT Glucose (12/09/2021 7:28 AM EDT) P athologist Signature POC Glucose 263 (H) 65 - 199 [facility] mg/dL [facility] Comment: Supplemental ranges: <140 mg/dL before meals <180 mg/dL all other times of the day Specimen Anatomical Collection Method Collection Time Receive d Time (Source) Location / / Volume Laterality Blood 12/09/2021 7:28 AM 2 7:28 EDT AM EDT Iker Cuevas MD POINT OF CARE TEST ORDERABLE S Performing Organization Address City/State/[place] [address] (ABNORMAL) Hemoglobin A1c (12/09/2021 [...] Mellitus, Diabetes Care 2013; 36: Suppl. 1, X66-84 Est Avg Gluc See note mg/dL [place] [...] with hemoglobinopathies. Additional resources are available on [facility] ADA website. Macario HAMMOND, Ruthann J, Deysi R, et al. ??Tr anslating the A1C assay into estimated average glucose values. ??Diabetes Care 2008:31(8):9452-2782. Specimen Anatomical Collection Method Collection Time Receive d Time (Source) Location / / Volume Laterality Blood Venous Draw / 12/09/2021 6:18 AM 12/10/19 22 Unknown EDT 12:24 PM EDT Resulting Agency Comment Spec In Lab Migdalia BROWN CHEMISTRY ORDERABLES Performing Organization Address City/State/ZIP [place] [address] (ABNORMAL) Prothrombin Time (12/09/2021 6:18 AM EDT) athologist Signature PT 26.6 (H) 9.4 - 12.5 [facility] LABORATORY INR 2.3 [facility] Migdalia BROWN HEMATOLOGY ORDERABLES Performing Organization Address City/[facility]/ZIP Code Phon e Number [address] Heparin (unfractionated) Level (12/09/2021 6:18 AM EDT) P athologist Signature Heparin UFH 0.24 IU/mL Floyd [...] Cuevas MD HEMATOLOGY ORDERABLES Performing Organization Address City/[facility]/[place] [address] (ABNORMAL) Differential, Automated (12/09/2021 6:18 AM EDT) Patholo gist Method Time Signature Neutrophils % 91.5 % [facility] LABORATORY Neutr Abs (ANC) 15.78 (H) 1.70 - [facility] 6.10 [facility] x10(3)/[facility] L LABORATORY Lymphocytes % 2.9 % [facility] LABORATORY Lymphocytes Abs 0.5 (L) 0.9 - 3.2 [facility] x10(3)/[facility] LABORATORY Monocytes % 4.9 % [facility] LABORATORY Monocyte Abs 0.8 0.3 - 0.9 [facility] x10(3)/[facility] LABORATORY Eosinophils % 0.0 % [facility] LABORATORY Eosinophils Abs 0.0 0.0 - 0.4 [facility] x10(3)/[facility] LABORATORY Basophils % 0.2 % [facility] LABORATORY Basophils Abs 0.0 0.0 - 0.1 [facility] x10(3)/[facility] LABORATORY Immature Gran % 0.50 [...] Gran Abs 0.09 (H) 0.00 - 0.04 x10(3)/[facility] LABORATORY Specimen Anatomical Collection Method Collection Time Receive d Time (Source) Location / / Volume Laterality Blood 12/09/2021 6:18 AM 2 6:33 EDT AM EDT Resulting Agency Comment Spec In Lab Morgan BROWN HEMATOLOGY ORDERABLES Performing Organization Address City/State/ZIP [place] [address] (ABNORMAL) Hemogram (12/09/2021 6:18 AM EDT) Analysis Performed At Patho logist Time Signature WBC 17.2 (H) 4.0 - 9.5 [facility] x10(3)/[facility] LABORATORY RBC 4.32 (L) 4.58 - [facility] 5.54 [facility] x10(6)/[facility] LABORATORY Hemoglobin 12.6 (L) 13.7 - [facility] 16.[facility] g/dL [facility] LAB[facility]ORY Hematocrit 38.9 (L) 40.5 - [facility] 48.5 % [facility] LABORATORY MCV 90.0 82.9 - [facility] 93.1 [facility] LABORATORY MCH 29.2 27.5 - [facility] 32.1 pg [facility] LABORATORY MCHC 32.4 32.0 - [facility] 35.7 g/dL [facility] LABORATORY Platelets 193 145 - 357 [facility] x10(3)/[facility] LABORATORY RDWSD 50.4 (H) 36.0 - [facility] 45.0 [facility] LABORATORY RDWCV 15.2 (H) 11.4 - [facility] 13.8 % [facility] LABORATORY MPV 9.5 7.6 - 12.9 [facility] LABORATORY nRBC % Auto 0.0 % [facility] LABORATORY nRBC Abs Auto 0.000 0.000 [facility] 0.[facility] x10(3)/[facility] LABORATORY Specimen Anatomical Collection Method Collection Time Receive d Time (Source) Location / / Volume Laterality Blood 12/09/2021 6:18 AM 6:33 EDT AM EDT Resulting Agency Comment Spec In Lab Morgan BROWN HEMATOLOGY ORDERABLES Performing Organization Address City/State/ZIP [place] [address] Lipid Panel (Reflex Direct LDL) (12/09/2021 6:18 AM EDT) P athologist Signature Chol, Total 105 mg/dL [facility] LABORATORY Comment: Lower Risk: <200 mg/dL Average Risk: 200-239 mg/dL Higher Risk: >dg=460 mg/dL Triglycerides 133 mg/dL [facility] LABORATORY Comment: Average Risk/Lower Risk: <150 mg/dL Borderline High Risk: 150-199 mg/dL High Risk: 200-499 mg/dL Very High Risk: >ek=781 mg/dL HDL 42 mg/dL [facility] LABORATORY Comment: Males: ?? Higher Risk: <40 mg/dL Females: ?? Higher Risk: <50 mg/dL LDL Cholesterol 36 mg/dL [facility] LABORATORY Comment: Lowest Risk: <100 mg/dL Lower Risk: 100-129 mg/dL Borderline High Risk: 130-159 mg/dL High Risk: 160-189 mg/dL Very High Risk: >io=987 mg/dL Chol/HDL Ratio 2.5 ratio [facility] LABORATORY Lipid Interpretation See Note [facility] LABORATORY Comment: Lipid management should be guided by a p atient? s ASCVD risk, goals and preferences. ACC/AHA Guidelines recommend high intens ity statin if clinical ASCVD or LDL greater than or equal to 190 mg/dL. [email or web address]/[email or web address]-[email or web address] Adults aged 40-75 with LDL 70-189 mg/dL should have their 10 year ASCVD risk estimated with the ACC/AHA ASCVD risk es timator http://tools.acc.org/YGCIH-Hrfo-Ejcjgrui r/ Statin should be discussed if risk [...] Address City/State/ZIP [place] [address] TSH (12/09/2021 6:18 AM EDT) athologist Signature TSH 1.60 0.27 - 4.20 [facility] mcIU/mL [facility] Comment: Reference Interval (mcIU/mL): Females: ??First Trimester: 0.23-3.88 ??Second Trimester: 0.22-3.90 ??Third Trimester: 0.44-4.66 Specimen Anatomical Collection Method Collection Time Receive d Time (Source) Location / / Volume Laterality Blood 12/09/2021 6:18 AM 2 6:33 EDT AM EDT Resulting Agency Comment Spec In Lab Iker Cuevas MD CHEMISTRY ORDERABLES Performing Organization Address City/[facility]/[place] [address] Hepatic Function Panel (12/09/2021 6:18 AM EDT) athologist Signature Total Protein 7.3 6.1 - 8.0 [facility] g/dL [facility] LABOR[facility] Albumin 4.2 3.2 - 5.2 [facility] g/dL [facility] AST 25 0 - 39 [facility] unit/L [facility] ALT 15 0 - 55 [place] unit/L [facility] Alk Phos 75 40 - 130 [facility] unit/L [facility] LAB[facility] Total 1.1 0.2 - 1.3 [facility] [facility] [facility] Bilirubin mg/dL [facility] LABORAT[facility] Bili, Direct 0.2 0.0 - 0.3 [place] mg/dL [facility] LABORATORY Specimen Anatomical Collection Method Collection Time Receive d Time (Source) Location / / Volume Laterality Blood 12/09/2021 6:18 AM 2 6:33 EDT AM EDT Resulting Agency Comment Spec In Lab Iker Cuevas MD CHEMISTRY ORDERABLES Performing Organization Address City/[facility] [place] [address] (ABNORMAL) BMP w/fasting Glucose (12/09/2021 6:18 AM EDT) P athologist Signature Glucose 235 (H) 65 - 99 [facility] Fasting mg/dL [facility] LABOR[facility] Comment: ?Fasting* Glucose Interpretive C [...] of Diabetes Mellitus, Position Statement from the [place] [employer]. ??Diabete s Care, Volume 33, [...] Address City/State/ZIP Code Phon e Number [address] Magnesium (12/09/2021 6:18 AM EDT) P athologist Signature Magnesium 0.81 0.69 - 1.07 [facility] mmol/L [facility] LABORATORY Specimen Anatomical Collection Method Collection Time Receive d Time (Source) Location / / Volume Laterality Blood 12/09/2021 6:18 AM 2 6:33 EDT AM EDT Resulting Agency Comment Spec In Lab Iker Cuevas MD CHEMISTRY ORDERABLES Performing Organization Address City/State/[place] [address] (ABNORMAL) Troponin (12/09/2021 6:18 AM EDT) athologist Signature Troponin-T 1.13 (H) 0.00 - [place] 0.00 ng/mL [facility] LABOR[facility] Comment: The 99th percentile for [...] additional sample may be indicated. Reference: Third Saxe Definition of Myocardial Infarction. Journal of the [place] College of Cardiology 2012;60:1581-98 Specimen Anatomical Collection Method Collection Time Receive d Time (Source) Location / / Volume Laterality Blood 12/09/2021 6:18 AM 6:33 EDT AM EDT Resulting Agency Comment Spec In Lab Iker Cuevas MD CHEMISTRY ORDERABLES Performing Organization Address City/State/ZIP Code Phon e Number [place] [id number] XR Chest One View [...] who have questions please contact the health caregiver assisted living that requested your imaging first. ? Narrative [...] ho have questions please contact the health caregiver assisted living that requested your imaging first. Amber Sanches MD IMG DX ORDERABLES (ABNORMAL) BLOOD GAS 2 ARTERIAL (12/09/2021 5:14 AM EDT) Analysis Performed At Path logis Time Signature pH Art 7.43 7.35 - [facility] 7.45 [facility] LABORATORY pCO2 Art 36 35 - 45 [facility] LABORATORY pO2 Art 67 (L) 85 - 104 [facility] LABORATORY HCO3 Art 23.4 20.0 - [facility] 26.0 [facility] mmol/L [facility] LABORATORY BE Art -0.9 -3.0 - 3.0 [facility] mmol/L [facility] LABORATORY Hgb Blood Gas 13.2 (L) 13.7 - [facility] 16.5 g/dL [facility] LABORATORY O2HB Art 91.3 (L) 94.0 - [facility] 97.0 % [facility] LABORATORY COHB Art 0.4 % [facility] LAB[facility] PF Ratio Art 191 [facility] LABORATORY Specimen Anatomical Collection Method Collection Time Receive d Time (Source) Location / / Volume Laterality Blood 12/09/2021 5:14 AM 5:14 EDT AM EDT Iker Cuevas MD CHEMISTRY ORDERABLES Performing Organization Address City/State/ZIP [place] [address] POCT Glucose (12/09/2021 4:46 AM EDT) athologist Signature POC Glucose 198 65 - 199 [facility] mg/dL [facility] Comment: Supplemental ranges: <140 mg/dL before meals <180 mg/dL all other times of the day Specimen Anatomical Collection Method Collection Time Receive d Time (Source) Location / / Volume Laterality Blood 12/09/2021 4:46 AM 2 4:46 EDT AM EDT Iker Cuevas MD POINT OF CARE TEST ORDERABLE S Performing Organization Address City/State/[place] [address] (ABNORMAL) POCT Glucose (12/09/2021 3:01 AM EDT) athologist Signature POC Glucose 225 (H) 65 - 199 [facility] mg/dL [facility] Comment: Supplemental ranges: <140 mg/dL before meals <180 mg/dL all other times of the day Specimen Anatomical Collection Method Collection Time Receive d Time (Source) Location / / Volume Laterality Blood 12/09/2021 3:01 AM 2 3:01 EDT AM EDT Iker Cuevas MD POINT OF CARE TEST ORDERABLE S Performing Organization Address City/State/[place] [address] (ABNORMAL) POCT Glucose (12/08/2021 10:55 PM EDT) athologist Signature POC Glucose 327 (H) 65 - 199 [facility] mg/dL [facility] Comment: Supplemental ranges: <140 mg/dL before meals <180 mg/dL all other times of the day Specimen Anatomical Collection Method Collection Time Receive d Time (Source) Location / / Volume Laterality Blood 12/08/2021 10:55 12/08/2021 PM EDT 10:55 PM EDT Iker Cuevas MD POINT OF CARE TEST ORDERABLE S Performing Organization Address City/State/[place] [address] Heparin (unfractionated) Level (12/08/2021 10:03 PM EDT) P athologist Signature Heparin UFH 0.18 IU/mL [facility] [...] Address City/State/ZIP [place] [address] (ABNORMAL) Troponin (12/08/2021 10:03 PM EDT) athologist Signature Troponin-T 0.92 (H) 0.00 - [facility] 0.00 ng/mL [facility] LABOR[facility] Comment: The 99th percentile for [...] additional sample may be indicated. Reference: Third Saxe Definition of Myocardial Infarction. Journal of the [place] College of Cardiology 2012;60:1581-98 Specimen Anatomical Collection Method Collection Time Receive d Time (Source) Location / / Volume Laterality Blood 12/08/2021 10:03 12/08/2021 PM EDT 10:31 PM EDT Resulting Agency Comment Spec In Lab Iker Cuevas MD CHEMISTRY ORDERABLES Performing Organization Address City/[facility]/[place] [address] (ABNORMAL) POCT Glucose (12/08/2021 8:22 PM EDT) athologist Signature POC Glucose 429 (H) 65 - 199 [facility] mg/dL [facility] LABOR[facility]ORY Comment: Supplemental ranges: <140 mg/dL before meals <180 mg/dL all other times of the day Specimen Anatomical Collection Method Collection Time Receive d Time (Source) Location / / Volume Laterality Blood 12/08/2021 8:22 PM 2 8:22 EDT PM EDT Iker Cuevas MD POINT OF CARE TEST ORDERABLE S Performing Organization Address City/[facility]/[place] [address] (ABNORMAL) POCT Glucose (12/08/2021 7:06 PM EDT) P athologist Signature POC Glucose 442 (H) 65 - 199 [place] mg/dL [facility] LABOR[facility]ORY Comment: Supplemental ranges: <140 mg/dL before meals <180 mg/dL all other times of the day Specimen Anatomical Collection Method Collection Time Receive d Time (Source) Location / / Volume Laterality Blood 12/08/2021 7:06 PM 2 7:06 EDT PM EDT Iker Cuevas MD POINT OF CARE TEST ORDERABLE S Performing Organization Address City/[facility]/[place] [address] Magnesium (12/08/2021 6:02 PM EDT) athologist Signature Magnesium 0.86 0.69 - 1.07 [facility] mmol/L [facility] LABORATORY Specimen Anatomical Collection Method Collection Time Receive d Time (Source) Location / / Volume Laterality Blood 12/08/2021 6:02 PM 6:36 EDT PM EDT Resulting Agency Comment Spec In Lab Iker Cuevas MD CHEMISTRY ORDERABLES Performing Organization Address City/State/ZIP Code Phon e Number [address] (ABNORMAL) Basic Metabolic Panel (non-fasting) (12/08/2021 6:02 PM EDT) athologist Signature Glucose Lvl 392 (H) 65 - 199 [facility] mg/dL [facility] LABOR[facility]ORY Comment: Diabetes: >=200 mg/dL plus [...] Address City/State/[place] [address] (ABNORMAL) Differential, Automated (12/08/2021 6:02 PM EDT) [facility] gist Method Time Signature Neutrophils % 89.5 % [facility] LABORATORY Neutr Abs (ANC) 13.97 (H) 1.70 - [facility] 6.10 [facility] x10(3)/[facility] LABORATORY Lymphocytes % 3.7 % [facility] LABORATORY Lymphocytes Abs 0.6 (L) 0.9 - 3.2 [facility] x10(3)/[facility] LABORATORY Monocytes % 6.1 % [facility] LABORATORY Monocyte Abs 1.0 (H) 0.3 - 0.9 [facility] x10(3)/[facility] LABORATORY Eosinophils % 0.0 % [facility] LABORATORY Eosinophils Abs 0.0 0.0 - 0.4 [facility] x10(3)/[facility] LABORATORY Basophils % 0.2 % [facility] LABORATORY Basophils Abs 0.0 0.0 - 0.1 [facility] x10(3)/[facility] LABORATORY Immature Gran % 0.50 [...] Gran Abs 0.08 (H) 0.00 - 0.04 x10(3)/[facility] LABORATORY Specimen Anatomical Collection Method Collection Time Receive d Time (Source) Location / / Volume Laterality Blood 12/08/2021 6:02 PM 6:36 EDT PM EDT Resulting Agency Comment Spec In Lab Morgan BROWN HEMATOLOGY ORDERABLES Performing Organization Address City/State/ZIP [place] [address] (ABNORMAL) Hemogram (12/08/2021 6:02 PM EDT) Analysis Performed At Patho logist Time Signature WBC 15.6 (H) 4.0 - 9.5 [facility] x[facility](3[facility] LABORATORY RBC 4.05 (L) 4.58 - [facility] 5.54 [facility] x10(6)/[facility] LABORATORY Hemoglobin 11.8 (L) 13.7 - [facility] 16.5 g/dL [facility] LABORATORY Hematocrit 35.8 (L) 40.5 - [facility] 48.5 % [facility] LABORATORY MCV 88.4 82.9 - [facility] 93.1 [facility] LABORATORY MCH 29.1 27.5 - [facility] 32.1 pg [facility] LABORATORY MCHC 33.0 32.0 - [facility] 35.7 g/dL [facility] LABORATORY Platelets 178 145 - 357 [facility] x[facility](3)/[facility] LABORATORY RDWSD 49.3 (H) 36.0 - [facility] 45.0 [facility] LABORATORY RDWCV 15.1 (H) 11.4 - [facility] 13.8 % [facility] LABORATORY MPV 10.4 7.6 - 12.9 [facility] LABORATORY nRBC % Auto 0.0 % [facility] LABORATORY nRBC Abs Auto 0.000 0.000 - [place] 0.000 [facility] x10(3)/[facility] LABORATORY Specimen Anatomical Collection Method Collection Time Receive d Time (Source) Location / / Volume Laterality Blood 12/08/2021 6:02 PM 2 6:36 EDT PM EDT Resulting Agency Comment Spec In Lab Mogran BROWN HEMATOLOGY ORDERABLES Performing Organization Address City/State/ZIP Code [place] [address] (ABNORMAL) Troponin (12/08/2021 6:02 PM EDT) athologist Signature Troponin-T 0.89 (H) 0.00 - [facility] 0.00 ng/mL [facility] LABORATORY Comment: The 99th percentile for [...] additional sample may be indicated. Reference: Third Saxe Definition of Myocardial Infarction. Journal of the [place] College of Cardiology 2012;60:1581-98 Specimen Anatomical Collection Method Collection Time Receive d Time (Source) Location / / Volume Laterality Blood 12/08/2021 6:02 PM 2 6:36 EDT PM EDT Resulting Agency Comment Spec In Lab Iker Cuevas MD CHEMISTRY ORDERABLES Performing Organization Address City/State/ZIP Code [place] [address] COVID-19 PCR (12/08/2021 5:00 PM EDT) [facility] Method Time Signature SARS-CoV-2 Not Detected [...] using the Simplexa COVID-19 Direct Assay by IQMaxjoi marcum as authorized by the FDA issued [...] fact sheets at the following FDA website: https://www.fda.gov/medical-devices/pedpudsuavk-giksort-5965-szerr-35-vxudfsyxj- nvd-rhogubymufltrc-bsfzheu-devices/njfhd-abigmpxutld-nzaw SARS-CoV-2 Source COLLIERY CLERK Swab [facility] LABORATORY Specimen (Source) Anatomical Collection Method Collection Time Re ceived Time Location / / Volume Laterality Nasopharyngeal Swab 12/08/2021 5:00 12/08 PM EDT 6:03 PM EDT Comment: Symptoms->Surveillance Resulting Agency Comment Spec In Lab Iker Cuevas MD MICROBIOLOGY - GENERAL ORDER ROBSON Performing Organization Address City/[facility] Phon e Number [place] [id number] EKG 12 Lead (12/08/2021 4:40 PM EDT) Component Value Ref Range Test Analysis Performed Pathologis t Method Time At Signature Ventricular rate 78 BPM MUSE SYSTEM Atrial Rate 78 BPM MUSE SYSTEM P-R Interval 152 ms MUSE SYSTEM QRS Duration 96 ms MUSE SYSTEM Q-T Interval 396 ms MUSE SYSTEM QTC Calculated 451 ms MUSE SYSTEM (Bezet) Calculated P Castell 44 degrees MUSE SYSTEM Calculated R Castell -31 degrees MUSE SYSTEM Calculated T Castell 124 degrees MUSE SYSTEM INTERPRETATION Normal sinus [...] Cuevas MD ECG ORDERABLES Performing Organization Address City/[facility] Phon e Number MUSE SYSTEM (ABNORMAL) POCT Glucose (12/08/2021 4:34 PM EDT) P athologist Signature POC Glucose 400 (H) 65 - [address] [facility] mg/dL [facility] LABOR[facility]ORY Comment: Supplemental ranges: <140 mg/dL before meals <180 mg/dL all other times of the day Specimen Anatomical Collection Method Collection Time Receive d Time (Source) Location / / Volume Laterality Blood 12/08/2021 4:34 PM 4:34 EDT PM EDT Iker Cuevas MD POINT OF CARE TEST ORDERABLE S Performing Organization Address City/State/ZIP Code Phon [place] [facility] [place] [address] documented in this encounter [...] Coronary atherosclerosis of unspecified type of vessel, mechoopda or graft Cardiomyopathy, ischemic Other specified forms [...] Galeas RN) 0830 (Given - Provider: Lilliana Esteabn, VAMSI) 5 mg, Oral, 2 TIMES DAILY, [...] DO NOT CRUSH OR OPEN, Routine 1230 ([facility] Unhold - Provider: Admin Adt) polyethylene glycoL [...] (Glutose) 40% oral geL(Linked Group 2) 0805 ([facility] Hold - Provider: Admin Adt - Reason: Transfer to a Procedural area)1230 ([facility] [facility] Unhold - Provider: Admin Adt) 15-30 g [...] (CANCELED ) 0907 (Given - Provider: Mendy Shcaffer)0918 (Given - Provider: Mendy Schaffer)0933 (Given - [...] (Intra-Procedure), Routine niCARdipine (Cardene) (100 mcg/mL) dilution (ENGINEERING ANALYST) (CANCELED) 1030 (Given - Provider: Vitaliy Nobles [...] mg per tablet 1 tab let 0805 ([facility] Hold - Provider: Admin Adt - Reason: Transfer to a Procedural area)1230 ([facility] Unhold - Provider: Admin Adt) 1 tablet, Oral, 2 TIMES DAILY PRN, Start ing on Wed12/09/21 at 1628, Until Wed12/12/21 at 1312, Constipation, Routine sodium chloride 0.9 % (flush) (BD PosiFlush Normal Sean ine 0.9) flush 5-20 mL 0805 ([facility] Hold - Provider: Admin Adt - Reason: Transfer to a Procedural area)1230 ([facility] Unhold - Provider: Admin Adt) 5-20 mL, [...] episode. & nbsp; For persistent hypoglycemia, con dressmaker or tailor longer-acting treatment for the duration of the [...]
Routine documented in this encounter Care Teams Ammonia Still Operator Relationship Specialty Start Date End Date Lovely Vicente MD PCP - General 04/16/15 [address] [place] [address] documented as of this encounter
--- OUTSIDE RECORDS SUMMARY | 2022-04-17 08:20 | XMS_ITS | Encounter Summary ---
:1945 Author Organization [facility] [place] [address] Care Team Providers Name Role Phone Lovley Vicente MD Primary Care Provider Encounter Details Date Type Department Care Team Description 12/07/2021 External Results Administration [facility] [place] [address] Social History Tobacco Use Types Packs/Day [...] MD [facility] [place] [address] [place] [address] (Wo rk) 05/28/2022 Laboratory Appointment Lab 05/28/2022 Office Visit Cardiology Zulma Dolan MD [facility] [place] [address] Liz Poole PA [facility] [place] [address] 06/10/2022 Office Visit Dermatology Laura Scherer MD [facility] ER [address] [place], [place] [address] (Wo rk) documented as of [...] on filedocumented in this encounter Care Teams Cradle Placer Relationship Specialty Start Date End Date Lovely Vicente MD PCP - General 04/16/[address] [place] [address] documented as of this encounter
--- OUTSIDE RECORDS SUMMARY | 2022-04-17 08:20 | XMS_ITS | Encounter Summary ---
:1945 Author Organization [facility] [place] [address] Care Team Providers Name Role Phone Lovely Vicente MD Primary Care Provider Encounter Details Date Type Department Care Team Description 04/16/2021 Laboratory Appointment Lab [facility] [place] [id number] Social History Tobacco Use Types Packs/Day Years [...] Dolan MD [facility] [place] [address] (Wo rk) 05/28/2022 Laboratory Appointment Lab 05/28/2022 Office Visit Cardiology Zulma Dolan MD [facility] [place] [address] Liz Poole PA [facility] [place] [address] 06/10/2022 Office Visit Dermatology Laura Scherer MD [facility] ER DR [address] [place], [place] [address] (Wo rk) documented as of this encounter [...] City/State/[place] [address] (ABNORMAL) Basic Metabolic Panel (non-fasting) (04/16/2021 9:58 AM EDT) athologist Signature Glucose Lvl 77 65 - 199 [facility] mg/dL [facility] Comment: [...] City/State/[place] [address] documented in this encounter Visit Diagnoses Diagnosis Chronic systolic heart failure documented in this encounter Care Teams Certified Medical Transcriptionist Relationship Specialty Start Date End Date Lovely Vicente MD PCP - General 04/16/[address] [place] [address] documented as of this encounter
--- OUTSIDE RECORDS SUMMARY | 2022-04-17 08:20 | XMS_ITS | Encounter Summary ---
:1945 [place] [address] Care Team Providers Name Role Phone Lovely Vicente MD Primary Care Provider Encounter Details Date Type Department Care Team Description 04/16/2021 Office Visit Cardiology at [facility] Liz Poole, Chronic systolic heart [facility] [place] [address] Cardiology Dept [phone] [place], [place] [address] Social History Tobacco Use Types [...] was feeling good. 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 07/07/2019 - 07/21/2019 Zio Patch Shadowgraph Scale Operator The patient had a minimum heart [...] K+ 5.2 today 6. Post-op atrial fibrillation [id number] (CHF, HTN, DM, vascular disease, thromboembolism) On warfarin - recent labile INR Will discuss with PCP, option of Luis Daniel 7. PAD 08/06/2017: Right 1st, 2nd, 3rd toe amputation 08/11/2017: Left??femoral arterial access, RLE??angiogram, Balloon angioplasty of R PT 10/25/2017: right popliteal-pedal bypass at [facility] 8. Hypothyrodism S/p thyroidectomy for [...] Zulma Dolan MD [facility] [place], [place] [address] (Wo rk) 05/28/2022 Laboratory Appointment Lab 05/28/2022 Office Visit Cardiology Zulma Dolan MD [facility] [place] [address] Liz Poole PA [facility] [place] [address] 06/10/2022 Office Visit Dermatology Laura Scherer MD [facility] [address] [place], [place] [address] (Wo rk) documented as of this encounter Results (ABNORMAL) Basic Metabolic Panel (non-fasting) (04/16/2021 9:58 AM EDT) athologist Signature Glucose Lvl 77 65 - 199 [facility] mg/dL [facility] Comment: Diabetes: >=200 mg/dL plus symp toms BUN 23 (H) 10 - 20 mg/dL [facility] Creatinine 1.26 0.80 - 1.50 [...] Anion Gap 9 5 - 15 mmol/L [facility] [...] Organization Address City/State/[place] [address] (ABNORMAL) pro-Brain Natriuretic Peptide [...] Organization Address City/State/[place] [address] documented in this encounter Visit Diagnoses Diagnosis Chronic systolic heart failure documented in this encounter Care Teams Back End Architect Relationship Specialty Start Date End Date Lovely Vicente MD PCP - General 04/16/[address] [place] [address] documented as of this encounter
--- OUTSIDE RECORDS SUMMARY | 2022-04-17 08:20 | XMS_ITS | Encounter Summary ---
:1945 [place] [address] Care Team Providers Name Role Phone Lovely Vicente MD Primary Care Provider Encounter Details Date Type Department Care Team Description 03/20/2021 Telephone Neurology at [facility] Hugo Gaston MD [facility] [place] [address] [place] [address] [phone] (Wo rk) Social History Tobacco Use Types [...] - 03/20/2021 6:03 PM EDT Call from [facility]. 76 M with h/o [...] Gaston MD Department of Neurology Pager # [phone] documented in this encounter Plan of Treatment Upcoming Encounters Date Type Specialty Care Team Description 05/28/2022 Appointment Cardiology Zulma Dolan MD [facility] [place], [place] [address] (Wo rk) 05/28/2022 Laboratory Appointment Lab 05/28/2022 Office Visit Cardiology Zulma Dolan MD [facility] [place] [address] Liz Poole PA [facility] [place] [address] 06/10/2022 Office Visit Dermatology Laura Scherer MD [facility] DR [address] [place], [place] [address] (Wo rk) documented as of this encounter Visit Diagnoses Not on filedocumented in this encounter Care Teams Manager Review Relationship Specialty Start Date End Date Lovely Vicente MD PCP - General 04/16/[address] [place] [address] documented as of this encounter
--- OUTSIDE RECORDS SUMMARY | 2022-04-17 08:20 | XMS_ITS | Encounter Summary ---
:1945 [place] [address] Care Team Providers Name Role Phone Lovely Vicente MD Primary Care Provider Encounter Details Date Type Department Care Team Description 12/07/2021 Ancillary Procedure [facility] Lovely murillo MD [facility] [address] [address] [place], [place] [phone] (Wo lissa) [address] [phone] Social History Tobacco Use Types Packs/Day Years [...] MD [facility] [address] [place] [place] [address] (Wo rk) 05/28/2022 Laboratory Appointment Lab 05/28/2022 Office Visit Cardiology Zulma Dolan MD [facility] [place] [address] Liz Poole PA [facility] [place] [address] 06/10/2022 Office Visit Dermatology Laura Scherer MD [facility] DR [address] [place], [place] [address] (Wo rk) documented as of [...] Address City/State/ZIP Code Phon e Number [place], [place] documented in this encounter Visit Diagnoses Not on filedocumented in this encounter Care Teams Outfitter Cabin Relationship Specialty Start Date End Date Lovely Vicente MD PCP - General 04/16/[address] [place] [address] documented as of this encounter
--- OUTSIDE RECORDS SUMMARY | 2022-04-17 08:20 | XMS_ITS | Encounter Summary ---
:1945 Author Organization [facility] [place] [address] Care Team Providers Name Role Phone Lovely Vicente MD Primary Care Provider Encounter Details Date Type Department Care Team Description 03/20/2021 Ancillary Procedure Radiology Library at [place] [address] [place] [address] [phone] Social History Tobacco Use Types Packs/Day Years [...] MD [facility] [place] [address] (Wo rk) 05/28/2022 Laboratory Appointment Lab 05/28/2022 Office Visit Cardiology Zulma Dolan MD [facility] [place] [address] Liz Poole PA [facility] [place] [address] 06/10/2022 Office Visit Dermatology Laura Scherer MD [facility] ER DR [address] [place], [...] Organization Address City/State/ZIP Code Phon e Number [place], [place] documented in this encounter Visit Diagnoses Not on filedocumented in this encounter Care Teams Throat Cutter Relationship Specialty Start Date End Date Lovely Vicente MD PCP - General 04/16/[address] [place] [address] documented as of this encounter
--- OUTSIDE RECORDS SUMMARY | 2022-04-17 08:20 | XMS_ITS | Encounter Summary ---
:1945 Author Organization [facility] [place] [address] Care Team Providers Name Role Phone Lovely Vicente MD Primary Care Provider Encounter Details Date Type Department Care Team Description 12/08/2021 External Results Non-Invasive Cardiology Lab Mar y None [facility] [place] [address] Social History Tobacco Use Types Packs/Day [...] Dolan MD [facility] er [place], [place] [address] (Wo rk) 05/28/2022 Laboratory Appointment Lab 05/28/2022 Office Visit Cardiology Zulma Dolan MD [facility] [place] [address] Liz Poole PA [facility] [place] [address] 06/10/2022 Office Visit Dermatology Laura Scherer MD [facility] [address] [place], [place] [address] (Wo rk) documented as of [...] on filedocumented in this encounter Care Teams Site Acquisition Manager Relationship Specialty Start Date End Date Lovely Vicente MD PCP - General 04/16/[address] [place] [address] documented as of this encounter
--- OUTSIDE RECORDS SUMMARY | 2022-04-17 08:20 | XMS_ITS | Encounter Summary ---
:1945 Author Organization [facility] [place] [address] Care Team Providers Name Role Phone Lovely Vicente MD Primary Care Provider Encounter Details Date Type Department Care Team Description 12/07/2021 Telephone Cardiology Eddi Briceño Jr., [facility] [place] [address] [facility] [phone] CARDIOLOGY DEPT [place], [place] [address] (Wo rk) Social History Tobacco [...] [facility] Referring Provider: Marisela Dean, PLANT SPRAYER [address] [place] [address] Don Veda Kushal 76 y.o. w / [...] MD [facility] [place] [address] (Wo rk) 05/28/2022 Laboratory Appointment Lab 05/28/2022 Office Visit Cardiology Zulma Dolan MD [facility] [place] [address] Liz Poole PA [facility] [place] [address] 06/10/2022 Office Visit Dermatology Laura Scherer MD [facility] [address] [place], [place] [address] (Wo rk) documented as of this encounter Visit Diagnoses Not on filedocumented in this encounter Care Teams Physical Trainer Relationship Specialty Start Date End Date Lovely Vicente MD PCP - General 04/16/15 [facility] [address] [place] [address] documented as of this encounter
--- OUTSIDE RECORDS SUMMARY | 2022-04-17 08:20 | XMS_ITS | Encounter Summary ---
:1945 Author Organization [facility] [place] [address] Care Team Providers Name Role Phone Lovely Vicente MD Primary Care Provider Reason for Visit Auth/Cert Specialty Diagnoses / Procedures Referred By Contact Refer red To Contact Diagnoses NSTEMI Procedures emerg ipi Referral ID Status Reason Start Date Expiration Date Visits Requ ested Visits Authorized [id number] 1 1 Encounter Details Date Type Department Care Team Description 12/10/2021 Surgery Out Of School Hours Care Worker Asa Coulter MD CARDIAC CATHETERIZATION [facility] [place] [address] [place] [address] [phone] (Wo rk) Social History Tobacco Use Types [...] Don Fatima Patient Age: 76 y.o. Language: American Race: White Ethnicity: Not nor Admit date: [...] Peter PA-C Kelly LaFlamme PA-C Cardiovascular Medicine [phone] Discharge Diagnoses (Hospital Problems) and Secondary Diagnoses [...] 3.75 guiding catheter and a 3.5 Fr [place] [facility] [place] 20 Mhz using Manual pullback. Imaging was successful. Image quality was good. The ostial LCX showed moderate diffuse atherosclerotic plaque with scattered three quadrant calcification. Measurements were performed after pre-dilation. Post Intervention: The stent was well expanded and apposed. Intravascular Ultrasound was performed in the distal LM using a 7 Fr EBU 3.75 guiding catheter and a 3.5 Fr [place] [facility] 20 Mhz using Manual pullback. Imaging was successful. Image quality was good. The distal LM showed moderate diffuse atherosclerotic plaque. Post Intervention: The stent was well expanded and apposed. Indication for Intervention: Coronary intervention was indicated for primary therapy for an acute myocardial infarction. The priority for the procedure was Urgent. The [facility] indication for the procedure was NSTE-ACS. [...] may require modification of this regimen. Consult [facility] Interventional Cardiology for questions. The [...] and cardiomegaly. ?? TTE from [facility] 12/08/21 ? Prior Cardiac Studies: [...] in 2012 who presented to [facility] with 1 week progressing breathlessness [...] Liz Poole PA-C. ?? At [facility], respiratory distress with hypoxia [...] appointments: During 8am-5pm Wednesday through Wednesday call [phone] to speak with a nurse in the cardiology clinic All other times call [phone] and ask to speak to the corn husk baler hvac refrigeration technician. Return to work: One week Driving: No driving for 48 hours after catheterization. Follow up Appointments: PCP Lovely iVcente MD [phone] to see patient at the end of December for annual check up. Patient to see Dr. Lorenzana at 1120 am at December 19 for a post hospital check up. Printer Operator Dr. De Oliveira to see you in [facility]. Left a message for office to set a date and time. Please call [phone] Nobles to see the patient for a same day cath in 2-3 weeks from now. Office to call with a date and time. For questions please call [phone] Home oxygen therapy: N/A Arrangements for VNA/home care: none Future Appointments and Orders Future Orders Complete By Expires Basic Metabolic Panel (non-fasting) [LAB15 Custom] 12/19/2021 (Approximate) 12/12/2022 Process Instructions: INCLUDES: Calcium, BUN, Creat, GFR, Glucose, Lytes Scheduling Instructions: Comments: Questions: Referral to Cardiac Rehab [LXW500 Custom] As directed Process Instructions: If no [...] appointments: During 8am-5pm Wednesday through Wednesday call [phone] to speak with a nurse in the cardiology clinic All other times call [phone] and ask to speak to the corn husk baler hvac refrigeration technician. Return to work: One week Driving: No driving for 48 hours after catheterization. Follow up Appointments: PCP Lovely Vicente MD [phone] to see patient at the end of December for annual check up. Patient to see Dr. Lorenzana at 1120 am at December 19 for a post hospital check up. Printer Operator Dr. De Oliveira to see you in [facility]. Left a message for office to set a date and time. Please call [phone] Nobles to see the patient for a same day cath in 2-3 weeks from now. Office to call with a date and time. For questions please call [phone] Home oxygen therapy: N/A Arrangements for VNA/home [...] Progress Note Patient Name: Don Fatima Service: HARVEST SUPERVISOR / PA Responsible Attending: Ifeanyi Truong [...] was given Lasix 80mg IV x1 in sleep lab technician. Tolerated procedure well. Home today [...] congestion and cardiomegaly. TTE from [facility] 12/08/21 Prior Cardiac Studies: TTE [...] with MD Janneth Neville PA 12/12/2021 Pager [phone] Associated attestation - Ifeanyi Truong MD - [...] ratio for each meal) Desirae Jett APRN [facility] Endocrinology Diabetes Management Pager [phone] 20 minutes of this 35 minute visit [...] Progress Note Patient Name: Don Fatima Service: HARVEST SUPERVISOR / PA Responsible Attending: Iker Cuevas [...] was given Lasix 80mg IV x1 in sleep lab technician. Tolerated procedure well. Review of [...] Intake/Output Summary (Last 24 hours) at 12/11/2021 0978 Last data filed at 12/11/2021 0508 Gross [...] congestion and cardiomegaly. TTE from [facility] 12/08/21 Prior Cardiac Studies: TTE [...] and answered his questions. Iker Cuevas MD [facility] Total time spent on review of records prior to visit, face to face time with patient during visit, documentation, and coordination of care with other clinicians: 25 minutes. . Iker Cuevas MD - 12/10/2021 12:30 PM EDT Images from the original note were not included. Inpatient Cardiology Progress Note Patient Name: Don Fatima Service: HARVEST SUPERVISOR / PA Responsible Attending: Iker Cuevas [...] was given Lasix 80mg IV x1 in sleep lab technician. Tolerated procedure well. Review of [...] TROPONINT 1.13* 0.92* 0.89* Pertinent Radiographic/Diagnostic Results: R/[facility] 12/10/21 Hemodynamics: Right Heart Pressures [...] congestion and cardiomegaly. TTE from [facility] 12/08/21 Prior Cardiac Studies: TTE [...] Discussed with MD Migdalia Peter PA-C Pager #[phone] 12/10/2021 Cardiology Attending Note I have seen [...] updated and given pictures. Iker Cuevas MD [facility] Total time spent on review of records prior to visit, face to face time with patient during visit, documentation, and coordination of care with other clinicians: 35 minutes. Iker Cuevas MD - 12/09/2021 7:28 AM EDT Images from the original note were not included. Inpatient Cardiology Progress Note Patient Name: Don Fatima Service: HARVEST SUPERVISOR / PA Responsible Attending: Iker Cuevas [...] congestion and cardiomegaly. TTE from [facility] 12/08/21 Prior Cardiac Studies: TTE [...] Discussed with MD Migdalia Peter PA-C Pager #[phone] 12/09/2021 Cardiology Attending Note I have seen and examined the patient. I agree with the findings above. Developed CHF early this am despite getting more iv lasix last evening. Feeling better now. INR > 2. Lungs still wet at base. Echo at [facility] showed EF 35% with mild mod MR slightly lower than last value here. -vit K 2.5 orally to facilitate correction of INR- this will take 12-24 hours to take effect -furosemide 80 mg iv now -postpone right and left heart cath until tomorrow given INR and ADHF -increase statin to achieve LDL < 70 -CPAP tonight Iker Taverass MD [facility] Total time spent on review of records [...] in 2012 who presented to [facility] with 1 week progressing breathlessness [...] with Liz Poole PA-C. At [facility], respiratory distress with hypoxia [...] at [facility] MA[facility] OR Significant Family History: Family [...] - 199 mg/dL Labs at [facility] 12/08/2021-troponin I 8004 (UN L [...] Monitor for ADRs. Trend troponins. Admission EKG. [facility] 12/09; consented. TTE. Telemetry monitoring, [...] code #Diet-carb control; n.p.o. after midnight for [facility] #DVT prophy- heparin infusion #GI prophy- PPI Discussed with MD Morgan Peter PA-C APP2 pager [phone] 12/08/2021 Cardiology Attending Note I have seen [...] is type 1 due to graft or [place] coronary stenosis vs acute injury from CHF. 3. PAF: currrently in NSR. Have replaced warfarin with heparin 4. PAD: stable 5. DM: stable 6. CKD: will monitor and minimize contrast. Pt very appreciative of Dr. Yuan Retana's care in 2018. Will let him know patient is here. Iker Cuevas MD [facility] documented in this encounter Miscellaneous Notes Care [...] Type: *No Product type* / Secondary Insurance: [employer] [place] Prescription Coverage: Yes This plan was [...] cath without complications. Migdalia Parker PA-C Pager #[phone] 12/10/2021 Initial Assessments - Nick Georges RN [...] COVID test: Lab Results Component Value Date [id number] Not Detected 12/08/2021 Past medical History: Past [...] spouse would be surrogate decision maker per [place] surrogate decision making law. (Only good for 180 days) Any patient receiving care at [facility] must abide by [place] law. The hierarchy for surrogate decision making [...] (i) The agent with financial power of assistant prosecuting attorney or a conservator appointed in [...] standard, cane - straight Home Address: [address] [place] [address] [place] [address] Social & Family Supports: All names listed below confirmed with patient as current and correct Extended Emergency Contact Information Primary Emergency Contact: Kisha Fatima Address: [address] [place] [address] [place] [address] [facility] Mobile Relation: Spouse Secondary Emergency Contact: Elba Swenson Address: [place], [place] [id number] [place] [address] Mobile Relation: Child Current Care Provided by: [...] Type: *No Product type* / Secondary Insurance: [facility] Prescription Coverage: Yes Preferred Pharmacy: [facility] [id number] [address] - [place], [place] - [address] [address] [place] Status: Patient is a : unable to assess Primary Care Provider: Lovely Vicente MD [phone] Patient/Caregiver Goals of Treatment: Get out of here Potential Needs for Transition of Care: none Agency Referrals: none patient has used [facility] in the past Transportation: no concerns Transportation Anticipated: family or friend will provide Concerns to be Addressed: patient refuses services, discharge planning Assessment: Patient is admitted to [facility] Service pager [phone] for 76 y.o.??male??with h/o??CAD s/p 3vCABG (THOMPSON-LAD, [...] status on current unit. Nick Georges RN chaperone, Office of Care Management Pager: [phone] Brief Op Note - Vitaliy Nobles MD - 12/10/2021 8:31 AM EDT Images from the original note were not included. [facility] [place] [address] CORONARY ANGIOGRAM AND PERCUTANEOUS CORONARY INTERVENTION REPORT Patient: Don Fatima : 1945 MR number: [id number] Date of Service: 12/10/2021 Net Developer Contract: Vitaliy Nobles MD Fellow: [place] MD [...] andis managed by his PCP. Lives in [place], [place] with his . States that he [...] your patient Desirae Jett APRN Endocrinology Pager [phone] 70 minutes of this 80 minute visit [...] for further details. STEPHANIE Rebolledo 12/08/2021 Pager [phone] documented in this encounter Plan of Treatment Upcoming Encounters Date Type Specialty Care Team Description 05/28/2022 Appointment Cardiology Zulma Dolan MD [facility] [place], [place] [address] (Wo lissa) 05/28/2022 Laboratory Appointment Lab 05/28/2022 Office Visit Cardiology Zulma Dolan MD [facility] [place] [address] Liz Poole PA [facility] [place] [address] 06/10/2022 Office Visit Dermatology Laura Scherer MD [facility] DR TEJA [facility] [place], [place] [address] (Wo rk) Scheduled Referrals Name [...] [facility] mg/dL [facility] Comment: Supplemental ranges: <140 mg/dL before meals <180 mg/dL all other times of the day Specimen Anatomical Collection Method Collection Time Receive d Time (Source) Location / / Volume Laterality Blood 12/12/2021 7:42 AM 7:42 EDT AM EDT Ifeanyi Truong MD POINT OF CARE TEST ORDERABLE S Performing Organization Address City/State/[place] [address] (ABNORMAL) Differential, Automated (12/12/2021 4:51 AM EDT) athologist Signature Neutrophils % 75.4 % [facility] Neutr Abs (ANC) 5.95 1.70 - [facility] 6.10 [facility] x10(3)/[facility] LABORATORY Lymphocytes % 12.2 % [facility] Lymphocytes Abs 1.0 0.9 - 3.2 [facility] x10(3)/[facility] LABORATORY Monocytes % 9.5 % [facility] Monocyte Abs 0.8 0.3 - 0.9 [facility] x10(3)/[facility] LABORATORY Eosinophils % 1.8 % [facility] Eosinophils Abs 0.1 0.0 - 0.4 [facility] x10(3)/[facility] LABORATORY Basophils % 0.5 % [facility] Basophils Abs 0.0 0.0 - 0.1 [facility] x10(3)/[facility] LABORATORY Immature Gran % 0.60 [...] Address City/State/ZIP Code Phon e Number [address] (ABNORMAL) Hemogram (12/12/2021 4:51 AM EDT) Analysis Performed At Patho logist Time Signature WBC 7.9 4.0 - 9.5 [facility] x[facility](3[facility] LABORATORY RBC 4.19 (L) 4.58 - [place] 5.54 [facility] x10(6)/[facility] LABORATORY Hemoglobin 12.1 (L) 13.7 - [place] 16.5 g/dL [facility] Hematocrit 36.7 (L) 40.5 - [facility] 48.5 % [facility] MCV 87.6 82.9 - [facility] 93.1 [facility] LABORATORY MCH 28.9 27.5 - [place] 32.1 pg [facility] MCHC 33.0 32.0 - [place] 35.7 g/dL [facility] Platelets 231 145 - 357 [facility] x10(3)/[facility] LABORATORY RDWSD 47.2 (H) 36.0 - [facility] [place] 45.0 [facility] LABORATORY RDWCV 14.6 (H) 11.4 - [facility] [place] 13.8 % [facility] MPV 9.5 7.6 - 12.9 [facility] [place] [facility] LABORATORY nRBC % Auto 0.0 % [facility] nRBC Abs Auto 0.000 0.000 - [place] 0.000 [facility] x10(3)/[facility] LABORATORY Specimen Anatomical Collection Method Collection Time Receive d Time (Source) Location / / Volume Laterality Blood 12/12/2021 4:51 AM 2 5:06 EDT AM EDT Resulting Agency Comment Spec In Lab Bijan Sun MD HEMATOLOGY ORDERABLES Performing Organization Address City/[facility]/[place] [address] (ABNORMAL) Prothrombin Time (12/12/2021 4:51 AM EDT) athologist Signature PT 14.9 (H) 9.4 - 12.5 [facility] LABORATORY INR 1.3 [facility] LABORATORY [...] Organization Address City/State/[place] [address] (ABNORMAL) BMP w/fasting Glucose (12/12/2021 4:51 AM EDT) athologist Signature Glucose 152 (H) 65 - 99 [facility] Fasting mg/dL [facility] Comment: [...] of Diabetes Mellitus, Position Statement from the [employer] Diabetes Association. ??Diabete s Care, Volume 33, Supplement 1, Jul 2009 BUN 52 (H) 10 - 20 mg/dL [facility] Creatinine 1.72 (H) 0.80 - 1.50 mg/dL [facility] [...] Organization Address City/State/[place] [address] Magnesium (12/12/2021 4:51 AM EDT) athologist Signature Magnesium 1.02 0.69 - 1.07 [place] mmol/L [facility] Specimen Anatomical Collection Method Collection Time Receive d Time (Source) Location / / Volume Laterality Blood 12/12/2021 4:51 AM 2 5:06 EDT AM EDT Resulting Agency Comment Spec In Lab Iker Cuevas MD CHEMISTRY ORDERABLES Performing Organization Address City/[facility]/ZIP Code Phon e Number [address] POCT Glucose (12/12/2021 3:43 [...] Address City/State/ZIP Code Phon e Number [address] POCT Glucose (12/11/2021 11:44 [...] Address City/State/ZIP Code Phon e Number [address] (ABNORMAL) POCT Glucose (12/11/2021 [...] Organization Address City/State/[place] [address] (ABNORMAL) POCT Glucose (12/11/2021 [...] Organization Address City/State/[place] [address] (ABNORMAL) POCT Glucose (12/11/2021 4:00 PM EDT) P athologist Signature POC Glucose 383 (H) 65 - 199 [facility] [place] mg/dL [facility] Comment: Supplemental ranges: <140 mg/dL before meals <180 mg/dL all other times of the day Specimen Anatomical Collection Method Collection Time Receive d Time (Source) Location / / Volume Laterality Blood 12/11/2021 4:00 PM 2 4:00 EDT PM EDT Iker Cuevas MD POINT OF CARE TEST ORDERABLE S Performing Organization Address City/State/[place] [address] (ABNORMAL) POCT Glucose (12/11/2021 [...] Address City/State/ZIP [place] [address] COVID-19 PCR (12/11/2021 10:13 AM EDT) [facility] Method Time Signature SARS-CoV-2 Not Detected Not Detected [place] RNA [facility] Comment: This result should [...] diagnosis of COVID-19 is performed using the [employer] S-CoV-2 Assay as authorized by the FDA Emergency Use Authorization (EUA). This EUA assay is intended for In-vitro Diagnostic (IVD) use with respiratory sp ecimens such as nasopharyngeal swabs collected from individuals during the ac cherokee phase of infection. This assay is performed based on the instructions for use provided by [employer] and additional guidance provided by CDC [...] is infected. As required or requested by [facility] health [facility], positive specimens may be sent for additional [...] clinical management guidance information are available at [facility] CDC Coronavirus Disease 2019 (COVID-19) webpage under Information fo r Healthcare Professionals (https://www.cdc.gov/coronavirus/2019-nc ov/hcp/index.html) Additional information about this and ot her EUA tests can be found in provider and patient fact sheets at the following FDA website: https://www.fda.gov/medical-devices/xnrjnnwxwaj-nzomfvf-1967-apnlk-78-hkhbletfx- uii-shldyyfdjiovzp-gvkoufw-devices/qhdmb-ldrfpmucflt-lczk SARS-Cov-2 RNA Source HARVEST SUPERVISOR Swab [facility] Specimen (Source) Anatomical Collection Method Collection Time Re ceived Time Location / / Volume Laterality Nasopharyngeal Swab 12/11/2021 10:13 11/23 AM EDT 11:16 AM EDT Comment: Symptoms->Surveillance Resulting Agency Comment Spec In Lab Iker Cuevas MD MICROBIOLOGY - GENERAL ORDER [place] Performing Organization Address City/State/[place] [address] POCT Glucose (12/11/2021 7:34 AM EDT) P athologist Signature POC Glucose 198 65 - 199 [facility] mg/dL [facility] Comment: Supplemental ranges: <140 mg/dL before meals <180 mg/dL all other times of the day Specimen Anatomical Collection Method Collection Time Receive d Time (Source) Location / / Volume Laterality Blood 12/11/2021 7:34 AM 2 7:34 EDT AM EDT Iker Cuevas MD POINT OF CARE TEST ORDERABLE S Performing Organization Address City/State/[place] [address] (ABNORMAL) POCT Glucose (12/11/2021 5:07 AM EDT) P athologist Signature POC Glucose 208 (H) 65 - 199 [facility] mg/dL [facility] Comment: Supplemental ranges: <140 mg/dL before meals <180 mg/dL all other times of the day Specimen Anatomical Collection Method Collection Time Receive d Time (Source) Location / / Volume Laterality Blood 12/11/2021 5:07 AM 2 5:07 EDT AM EDT Iker Cuevas MD POINT OF CARE TEST ORDERABLE S Performing Organization Address City/State/[place] [address] (ABNORMAL) Differential, Automated (12/11/2021 4:28 AM EDT) Patholo gist Method Time Signature Neutrophils % 79.6 % [facility] Neutr Abs (ANC) 7.01 (H) 1.70 - [facility] 6.10 [facility] x10(3)/[facility] L LABORATORY Lymphocytes % 9.1 % [facility] Lymphocytes Abs 0.8 (L) 0.9 - 3.2 [facility] x10(3)/[facility] LABORATORY Monocytes % 9.2 % [facility] Monocyte Abs 0.8 0.3 - 0.9 [facility] x10(3)/[facility] LABORATORY Eosinophils % 1.3 % [facility] Eosinophils Abs 0.1 0.0 - 0.4 [facility] x10(3)/[facility] LABORATORY Basophils % 0.5 % [facility] Basophils Abs 0.0 0.0 - 0.1 [facility] x10(3)/[facility] LABORATORY Immature Gran % 0.30 % [...] Melisa Gran Abs 0.03 0.00 - 0.04 x10(3)/[facility] Y [facility] LABORATORY Specimen Anatomical Collection Method Collection Time Receive d Time (Source) Location / / Volume Laterality Blood 12/11/2021 4:28 AM 4:37 EDT AM EDT Resulting Agency Comment Spec In Lab Bijan Sun MD HEMATOLOGY ORDERABLES Performing Organization Address City/State/ZIP Code Phon e Number [place] [id number] (ABNORMAL) Hemogram (12/11/2021 4:28 AM EDT) Analysis Performed At Patho logist Time Signature WBC 8.8 4.0 - 9.5 [facility] x10(3)/[facility] LABORATORY RBC 4.15 (L) 4.58 - [place] 5.54 [facility] x10(6)/[facility] LABORATORY Hemoglobin 11.9 (L) 13.7 - [facility] 16.[facility] g/dL [facility] Hematocrit 36.9 (L) 40.5 - [facility] [place] 48.5 % [facility] MCV 88.9 82.9 - [facility] [place] 93.1 [facility] LABORATORY MCH 28.7 27.5 - [place] 32.1 pg [facility] MCHC 32.2 32.0 - [facility] 35.7 g/dL [facility] Platelets 211 145 - 357 [facility] x10(3)/[facility] LABORATORY RDWSD 48.3 (H) 36.0 - [facility] [place] 45.0 [facility] LABORATORY RDWCV 14.8 (H) 11.4 - [facility] [place] 13.8 % [facility] MPV 9.6 7.6 - 12.9 [facility] LABORATORY nRBC % Auto 0.0 % [facility] nRBC Abs Auto 0.000 0.000 - [facility] 0.000 [facility] HOSPITAL x10(3)/[facility] LABORATORY Specimen Anatomical Collection Method Collection Time Receive d Time (Source) Location / / Volume Laterality Blood 12/11/2021 4:28 AM 2 4:37 EDT AM EDT Resulting Agency Comment Spec In Lab Bijan Sun MD HEMATOLOGY ORDERABLES Performing Organization Address City/[facility]/ZIP [facility] [place] [address] (ABNORMAL) Prothrombin Time (12/11/2021 4:28 AM EDT) P athologist Signature PT 17.7 (H) 9.4 - 12.5 [facility] LABORATORY INR 1.6 [facility] LABORATORY Comment: An INR [...] Cuevas MD HEMATOLOGY ORDERABLES Performing Organization Address City/[facility]/[place] [address] (ABNORMAL) BMP w/fasting Glucose (12/11/2021 4:28 AM EDT) P athologist Signature Glucose 207 (H) 65 - 99 [facility] Fasting mg/dL [facility]OR[facility] Comment: [...] of Diabetes Mellitus, Position Statement from the [employer] Diabetes Association. ??Diabete s Care, Volume 33, Supplement 1, Jul 2009 BUN 49 (H) 10 - 20 mg/dL [facility] LABORATORY Creatinine 1.43 0.80 - 1.50 mg/dL [facility] LABORATORY [...] Estimated GFR 48 (L) >=60 mL/min/1.73 m?? [facility] [...] Cuevas MD CHEMISTRY ORDERABLES Performing Organization Address City/[facility]/[place] [address] Magnesium (12/11/2021 4:28 AM EDT) athologist Signature Magnesium 1.04 0.69 - 1.07 [facility]L [facility] Specimen Anatomical Collection Method Collection Time Receive d Time (Source) Location / / Volume Laterality Blood 12/11/2021 4:28 AM 2 4:37 EDT AM EDT Resulting Agency Comment Spec In Lab Iker Cuevas MD CHEMISTRY ORDERABLES Performing Organization Address City/[facility]/ZIP Code Phon e Number [address] POCT Glucose (12/11/2021 3:58 [...] [facility]/[place] [address] (ABNORMAL) POCT Glucose (12/10/2021 [...] [facility]/[place] [address] (ABNORMAL) POCT Glucose (12/10/2021 7:54 PM EDT) athologist Signature POC Glucose 225 (H) 65 - 199 [facility] mg/dL [facility] Comment: Supplemental [...] [facility]/[place] [address] Potassium (12/10/2021 7:46 PM EDT) athologist [facility] Potassium 4.2 3.5 - 5.0 [facility] mmol/L [facility] Comment: Please [...] Cuevas MD CHEMISTRY ORDERABLES Performing Organization Address City/[facility]/ZIP [facility] [place] [address] (ABNORMAL) Basic Metabolic Panel (non-fasting) (12/10/2021 6:12 PM EDT) athologist Signature Glucose Lvl 246 (H) 65 - 199 [facility] mg/dL [facility] Comment: Diabetes: >=200 mg/dL plus symp toms BUN 50 (H) 10 - 20 mg/dL [facility] LABORATORY Creatinine 1.39 0.80 - 1.50 mg/dL [facility] LABORATORY [...] 107 mmol/L [facility] LABORATORY CO2 22 22 - 31 mmol/L [facility] LABORATORY Anion Gap 16 (H) 5 - 15 mmol/L [facility] LABORATORY Calcium 8.3 (L) 8.5 - 10.5 mg/dL [facility] LABORATORY Estimated GFR 49 (L) >=60 mL/min/1.73 m?? [facility] [...] Address City/State/ZIP Code Phon e Number [address] POCT Glucose (12/10/2021 4:59 PM EDT) P athologist Signature POC Glucose 158 65 - 199 [facility] mg/dL [facility] Comment: Supplemental ranges: <140 mg/dL before meals <180 mg/dL all other times of the day Specimen Anatomical Collection Method Collection Time Receive d Time (Source) Location / / Volume Laterality Blood 12/10/2021 4:59 PM 2 4:59 EDT PM EDT Iker Cuevas MD POINT OF CARE TEST ORDERABLE S Performing Organization Address City/State/[place] [address] (ABNORMAL) POCT Glucose (12/10/2021 12:43 PM EDT) P athologist Signature POC Glucose 241 (H) 65 - 199 [facility] mg/dL [facility] Comment: Supplemental ranges: <140 mg/dL before meals <180 mg/dL all other times of the day Specimen Anatomical Collection Method Collection Time Receive d Time (Source) Location / / Volume Laterality Blood 12/10/2021 12:43 12/10/2021 PM EDT 12:43 PM EDT Iker Cuevas MD POINT OF CARE TEST ORDERABLE S Performing Organization Address City/State/[place] [address] EKG 12 Lead (12/10/2021 11:17 AM EDT) Component Value Ref Range Test Analysis Performed Pathologis t Method Time At Signature Ventricular rate 62 BPM MUSE SYSTEM Atrial Rate 62 BPM MUSE SYSTEM P-R Interval 142 ms MUSE SYSTEM QRS Duration 100 ms MUSE SYSTEM Q-T Interval 434 ms MUSE SYSTEM QTC Calculated 440 ms MUSE SYSTEM (Bezet) Calculated P [place] 34 degrees MUSE SYSTEM Calculated R [place] -39 degrees MUSE SYSTEM Calculated T [place] 92 degrees MUSE SYSTEM INTERPRETATION Normal sinus rhythm MUSE SYSTEM Left axis deviation Minimal voltage criteria for LVH, may be normal variant ( Lindsay product ) Cannot rule out Inferior infarct [...] Laterality Volume Narrative 12/10/2021 12:04 PM EDT ?[facility] ? Cardiac Cathete rization/Intervention Report ? Patient Name: Don FatimaMadiha ? Procedure Date: 12/10/2021 ? A #: [id number] ? Primary Physician: Nobles, Vitaliy P ? Case #: [id number] ? File Name: [id number] ? Catheterization Order Number: [id number] ? [facility] ? Final Report [place], [place] ? Patient Name: ? Don E. Stewa rt ? ID#: ?[id number] ? : ?1945 ? Procedure Date: ? [...] procedure was Urgent. The indication for ?the sleep lab technician visit is ACS great er [...] ?3.75 guiding catheter and a 3.5 Fr [place] [facility] [place] [facility] 20 Mhz using Manual ?pullback. ??Imaging was [...] ?3.75 guiding catheter and a 3.5 Fr [place] [facility] 20 Mhz using Manual ?pullback. ??Imaging was [...] ?modification of this regimen. C [facility] Interventional Cardiology for ?questions. ?The [...] Procedure Note Vitaliy Nobles MD - 01/14/2022 [facility] Cardiac Catheterization/Intervention Re port Patient Name: Don Fatima Procedure Date: 12/10/2021 A #: [id number] Primary Physician: Vitaliy Nobles Case #: [id number] File Name: [id number] Catheterization Order Number: [id number] [facility] Out Of School Hours Care Worker [facility] Final Report [place], [place] Patient Name: Don Fatima ID#: [...] e was Urgent. The indication for the sleep lab technician visit is ACS greater than [...] artery was injected utilizi ng a 5Fr OSMNAI catheter. Left ventricular pressure was performed util [...] and a 3.5 Fr [place] [facility] [place] 20 Mhz using Manual pullback. Imaging was [...] and a 3.5 Fr [place] [facility] [place] 20 Mhz using Manual pullback. Imaging was [...] require modification of this regimen. Consult D [facility] [...] [facility] mg/dL [facility] Comment: Supplemental ranges: <140 mg/dL before meals <180 mg/dL all other times of the day Specimen Anatomical Collection Method Collection Time Receive d Time (Source) Location / / Volume Laterality Blood 12/10/2021 10:30 12/10/2021 AM EDT 10:30 AM EDT Iker Cuevas MD POINT OF CARE TEST ORDERABLE S Performing Organization Address City/State/[place] [address] (ABNORMAL) POCT Glucose (12/10/2021 [...] [facility]/[place] [address] (ABNORMAL) POCT Glucose (12/10/2021 [...] Organization Address City/State/[place] [address] (ABNORMAL) Point of Care Blood Gas Historical (12/10/2021 9:04 AM EDT) [facility] Method Time Signature POC pH 7.40 7.35 - BARBAR[facility] RYAN 7.45 [facility] POC PCO2 40 35 - 45 [facility] LABORATORY POC PO2 63 (L) 85 - 104 [facility] LABORATORY POC Base Excess 0.0 -3.0 - 3.0 [facility] K mmol/L [facility] POC HCO3 24.8 20.0 - [facility] 26.0 [facility] POC Sodium 143 135 - 145 [facility] mmol/L [facility] POC Potassium 3.7 3.5 - 5.0 [facility] mmol/L [facility] POC Ionized Ca 1.07 (L) 1.15 - [facility] 1.33 [facility] POC Hematocrit 30.0 (L) 40.0 - [facility] 51.0 % [facility] POC Calc Hgb 10.2 (L) 13.7 - [facility] 17.5 g/dL [facility] Comment: [...] Organization Address City/State/[place] [address] (ABNORMAL) POCT Glucose (12/10/2021 7:19 AM EDT) P athologist Signature POC Glucose 274 (H) 65 - 199 [facility] mg/dL [facility] Comment: Supplemental ranges: <140 mg/dL before meals <180 mg/dL all other times of the day Specimen Anatomical Collection Method Collection Time Receive d Time (Source) Location / / Volume Laterality Blood 12/10/2021 7:19 AM 2 7:19 EDT AM EDT Iker Cuevas MD POINT OF CARE TEST ORDERABLE S Performing Organization Address City/State/[place] [address] Heparin (unfractionated) Level (12/10/2021 4:25 AM EDT) P athologist Signature Heparin UFH 0.69 IU/mL [facility] [...] City/State/ZIP Code Phon e Number [place] [id number] HOSPITAL LABORATORY Drive (ABNORMAL) Differential, Automated (12/10/2021 4:25 AM EDT) Patholo gist Method Time Signature Neutrophils % 79.8 % [facility] LABORATORY Neutr Abs (ANC) 7.47 (H) 1.70 - [facility] 6.10 [facility] x10(3)/[facility] L LABORATORY Lymphocytes % 10.6 % [facility] LABORATORY Lymphocytes Abs 1.0 0.9 - 3.2 [facility] x10(3)/[facility] LABORATORY Monocytes % 8.4 % [facility] LABORATORY Monocyte Abs 0.8 0.3 - 0.9 [facility] x10(3)/[facility] LABORATORY Eosinophils % 0.6 % [facility] LABORATORY Eosinophils Abs 0.1 0.0 - 0.4 [facility] x10(3)/[facility] LABORATORY Basophils % 0.2 % [facility] LABORATORY Basophils Abs 0.0 0.0 - 0.1 [facility] x10(3)/[facility] LABORATORY Immature Gran % 0.40 % [...] Melisa Gran Abs 0.04 0.00 - 0.04 x10(3)/[facility] LABORATORY Specimen Anatomical Collection Method Collection Time Receive d Time (Source) Location / / Volume Laterality Blood 12/10/2021 4:25 AM 4:34 EDT AM EDT Resulting Agency Comment Spec In Lab Morgan BROWN HEMATOLOGY ORDERABLES Performing Organization Address City/State/[place] [address] (ABNORMAL) Hemogram (12/10/2021 4:25 AM EDT) Analysis Performed At Patho logist Time Signature WBC 9.4 4.0 - 9.5 [facility] x10(3)/[facility] LABORATORY RBC 3.81 (L) 4.58 - [facility] 5.54 [facility] x10(6)/[facility] LABORATORY Hemoglobin 11.1 (L) 13.7 - [facility] 16.5 g/dL [facility] Hematocrit 34.0 (L) 40.5 - [facility] 48.5 % [facility] MCV 89.2 82.9 - [facility] 93.1 [facility] LABORATORY MCH 29.1 27.5 - [facility] 32.1 pg [facility] MCHC 32.6 32.0 - [facility] 35.7 g/dL [facility] Platelets 183 145 - 357 [facility] x10(3)/[facility] LABORATORY RDWSD 49.9 (H) 36.0 - [facility] RYAN 45.0 [facility] LABORATORY RDWCV 15.2 (H) 11.4 - [facility] 13.8 % [facility] MPV 9.8 7.6 - 12.9 [facility] LABORATORY nRBC % Auto 0.0 % [facility] LABORATORY nRBC Abs Auto 0.000 0.000 - BARBARA DAVIS 0.000 [facility] x10(3)/[facility] LABORATORY Specimen Anatomical Collection Method Collection Time Receive d Time (Source) Location / / Volume Laterality Blood 12/10/2021 4:25 AM 2 4:34 EDT AM EDT Resulting Agency Comment Spec In Lab Morgan BROWN HEMATOLOGY ORDERABLES Performing Organization Address City/[facility]/ZIP Code Phon e Number [address] (ABNORMAL) Prothrombin Time (12/10/2021 4:25 AM EDT) P athologist Signature PT 20.0 (H) 9.4 - 12.5 [facility] LABORATORY INR 1.7 [facility] LABORATORY Comment: An INR [...] Cuevas MD HEMATOLOGY ORDERABLES Performing Organization Address City/[facility]/[place] [address] (ABNORMAL) BMP w/fasting Glucose (12/10/2021 4:25 AM EDT) P athologist Signature Glucose 210 (H) 65 - 99 [facility] Fasting mg/dL [facility] Comment: [...] of Diabetes Mellitus, Position Statement from the [employer] Diabetes [employer]. ??Diabete s Care, Volume 33, Supplement 1, Jul 2009 BUN 54 (H) 10 - 20 mg/dL [facility] LABORATORY Creatinine 1.52 (H) 0.80 - 1.50 mg/dL [facility] [...] Estimated GFR 44 (L) >=60 mL/min/1.73 m?? [facility] [...] Organization Address City/State/[place] [address] Magnesium (12/10/2021 4:25 AM EDT) athologist Signature Magnesium 0.95 0.69 - 1.07 [facility] mmol/L [facility] Specimen Anatomical Collection Method Collection Time Receive d Time (Source) Location / / Volume Laterality Blood 12/10/2021 4:25 AM 2 4:34 EDT AM EDT Resulting Agency Comment Spec In Lab Iekr Cuevas MD CHEMISTRY ORDERABLES Performing Organization Address City/[facility]/[place] [address] POCT Glucose (12/10/2021 1:58 [...] [facility]/ZIP Code Phon e Number [address] (ABNORMAL) POCT Glucose (12/09/2021 [...] [facility] [address] Heparin (unfractionated) Level (12/09/2021 [...] Organization Address City/State/[place] [address] (ABNORMAL) Basic Metabolic Panel (non-fasting) (12/09/2021 7:30 PM EDT) athologist Signature Glucose Lvl 372 (H) 65 - 199 [facility] mg/dL [facility] Comment: Diabetes: >=200 mg/dL plus symp toms BUN 56 (H) 10 - 20 mg/dL [facility] LABORATORY Creatinine 1.75 (H) 0.80 - 1.50 mg/dL [facility] [...] 107 mmol/L [facility] LABORATORY CO2 22 22 - 31 mmol/L [facility] LABORATORY Anion Gap 14 5 - 15 mmol/L [facility] LABORATORY Calcium 8.1 (L) 8.5 - 10.5 mg/dL [facility] LABORATORY Estimated GFR 37 (L) >=60 mL/min/1.73 m?? [facility] [...] Organization Address City/State/[place] [address] (ABNORMAL) POCT Glucose (12/09/2021 [...] Organization Address City/State/[place] [address] (ABNORMAL) POCT Glucose (12/09/2021 6:32 PM EDT) athologist Signature POC Glucose 356 (H) 65 - 199 [facility] mg/dL [facility] Comment: Supplemental [...] [facility] [address] (ABNORMAL) POCT Glucose (12/09/2021 4:19 PM EDT) athologist Signature POC Glucose 347 (H) 65 - 199 [facility] mg/dL [facility] Comment: Supplemental ranges: <140 mg/dL before meals <180 mg/dL all other times of the day Specimen Anatomical Collection Method Collection Time Receive d Time (Source) Location / / Volume Laterality Blood 12/09/2021 4:19 PM 2 4:19 EDT PM EDT Iker Cuevas MD POINT OF CARE TEST ORDERABLE S Performing Organization Address City/State/[place] [address] Heparin (unfractionated) Level (12/09/2021 [...] Organization Address City/State/[place] [address] (ABNORMAL) POCT Glucose (12/09/2021 12:02 PM EDT) athologist Signature POC Glucose 235 (H) 65 - 199 [facility] mg/dL [facility] Comment: Supplemental ranges: <140 mg/dL before meals <180 mg/dL all other times of the day Specimen Anatomical Collection Method Collection Time Receive d Time (Source) Location / / Volume Laterality Blood 12/09/2021 12:02 12/09/2021 PM EDT 12:02 PM EDT Iker Cuevas MD POINT OF CARE TEST ORDERABLE S Performing Organization Address City/State/[place] [address] (ABNORMAL) POCT Glucose (12/09/2021 [...] [facility] [address] EKG 12 Lead (12/09/2021 7:57 AM EDT) Component Value Ref Range Test Analysis Performed Pathologis t Method Time At Signature Ventricular rate 101 BPM MUSE SYSTEM Atrial Rate 101 BPM MUSE SYSTEM P-R Interval 150 ms MUSE SYSTEM QRS Duration 112 ms MUSE SYSTEM Q-T Interval 364 ms MUSE SYSTEM QTC Calculated 471 ms MUSE SYSTEM (Bezet) Calculated P [place] 59 degrees MUSE SYSTEM Calculated R [place] -42 degrees MUSE SYSTEM Calculated T [place] 102 degrees MUSE SYSTEM INTERPRETATION Sinus tachycardia Occasional Premature ventricular com plexes MUSE SYSTEM Left axis deviation 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) Abnormal ECG When compared with ECG of 08-DEC-2021 16:40, Premature ventricular complexes are now Present Confirmed by MD Fernandez Danette ([id number]) on 12/10/2021 4:55:06 PM Specimen Anatomical Collection Method Collection Time Receive d Time (Source) Location / / Volume Laterality 12/09/2021 7:57 AM 2 4:55 EDT PM EDT Ikre Cuevas MD ECG ORDERABLES Performing Organization Address City/State/ZIP Code Phon e Number MUSE SYSTEM (ABNORMAL) POCT Glucose (12/09/2021 7:28 AM EDT) P athologist Signature POC Glucose 263 (H) 65 - 199 [facility] mg/dL [facility] Comment: Supplemental ranges: <140 mg/dL before meals <180 mg/dL all other times of the day Specimen Anatomical Collection Method Collection Time Receive d Time (Source) Location / / Volume Laterality Blood 12/09/2021 7:28 AM 2 7:28 EDT AM EDT Iker Cuevas MD POINT OF CARE TEST ORDERABLE S Performing Organization Address City/State/ZIP Code Phon e Number [place] [id number] HOSPITAL LABORATORY Drive (ABNORMAL) Hemoglobin A1c (12/09/2021 [...] Mellitus, Diabetes Care 2013; 36: Suppl. 1, E97-70 Est Avg Gluc See note mg/dL [facility] [...] into estimated average glucose values. ??Diabetes Care 2008:31(8):7348-3032. Specimen Anatomical Collection Method Collection Time Receive d Time (Source) Location / / Volume Laterality Blood Venous Draw / 12/09/2021 6:18 AM 12/10/19 22 Unknown EDT 12:24 PM EDT Resulting Agency Comment Spec In Lab Migdalia BROWN CHEMISTRY ORDERABLES Performing Organization Address [facility] [place] [address] (ABNORMAL) Prothrombin Time (12/09/2021 6:18 AM EDT) athologist Signature PT 26.6 (H) 9.4 - 12.5 [facility] LABORATORY INR 2.3 [facility] LABORATORY Comment: An INR [...] Migdalia BROWN HEMATOLOGY ORDERABLES Performing Organization Address [facility] [place] [address] Heparin (unfractionated) Level (12/09/2021 [...] Organization Address City/State/[place] [address] (ABNORMAL) Differential, Automated (12/09/2021 6:18 AM EDT) [facility] Method Time Signature Neutrophils % 91.5 % [facility] LABORATORY Neutr Abs (ANC) 15.78 (H) 1.70 - [facility] 6.10 [facility] x10(3)/[facility] LABORATORY Lymphocytes % 2.9 % [facility] LABORATORY Lymphocytes Abs 0.5 (L) 0.9 - 3.2 [facility] x10(3)/[facility] LABORATORY Monocytes % 4.9 % [facility] LABORATORY Monocyte Abs 0.8 0.3 - 0.9 [facility] x10(3)/[facility] LABORATORY Eosinophils % 0.0 % [facility] LABORATORY Eosinophils Abs 0.0 0.0 - 0.4 [facility] x10(3)/[facility] LABORATORY Basophils % 0.2 % [facility] LABORATORY Basophils Abs 0.0 0.0 - [address].1 [facility] x10(3)/[facility] LABORATORY Immature Gran % 0.50 % [...] Organization Address City/State/[place] [address] (ABNORMAL) Hemogram (12/09/2021 6:18 AM EDT) Analysis Performed At Patho logist Time Signature WBC 17.2 (H) 4.0 - 9.5 [facility] x10(3)/[facility] LABORATORY RBC 4.32 (L) 4.58 - [facility] 5.54 [facility] x10(6)/[facility] LABORATORY Hemoglobin 12.6 (L) 13.7 - [facility] 16.5 g/dL [facility] Hematocrit 38.9 (L) 40.5 - [facility] 48.5 % [facility] MCV 90.0 82.9 - [facility] 93.1 [facility] LABORATORY MCH 29.2 27.5 - [facility] 32.1 pg [facility] MCHC 32.4 32.0 - [facility] 35.7 g/dL [facility] Platelets 193 145 - 357 [facility] x10(3)/[facility] LABORATORY RDWSD 50.4 (H) 36.0 - [facility] 45.0 [facility] LABORATORY RDWCV 15.2 (H) 11.4 - [facility] 13.8 % [facility] MPV 9.5 7.6 - 12.9 [facility] LABORATORY nRBC % Auto 0.0 % [facility] LABORATORY nRBC Abs Auto 0.000 0.000 - [facility] 0.000 [facility] x10(3)/[facility] LABORATORY Specimen Anatomical Collection Method Collection Time Receive d Time (Source) Location / / Volume Laterality Blood 12/09/2021 6:18 AM 6:33 EDT AM EDT Resulting Agency Comment Spec In Lab Morgan BROWN HEMATOLOGY ORDERABLES Performing Organization Address City/State/[place] [address] Lipid Panel (Reflex Direct LDL) (12/09/2021 6:18 AM EDT) athologist Signature Chol, Total 105 mg/dL [facility] LABORATORY Comment: Lower Risk: <200 mg/dL Average Risk: 200-239 mg/dL Higher Risk: >xs=298 mg/dL Triglycerides 133 mg/dL [facility] LABORATORY Comment: Average Risk/Lower Risk: <150 mg/dL Borderline High Risk: 150-199 mg/dL High Risk: 200-499 mg/dL Very High Risk: >qi=902 mg/dL HDL 42 mg/dL [facility] Comment: Males: ?? Higher Risk: <40 mg/dL Females: ?? Higher Risk: <50 mg/dL LDL Cholesterol 36 mg/dL [facility] Comment: Lowest Risk: <100 mg/dL Lower Risk: 100-129 mg/dL Borderline High Risk: 130-159 mg/dL High Risk: 160-189 mg/dL Very High Risk: >pe=626 mg/dL Chol/HDL Ratio 2.5 ratio [facility] Lipid Interpretation See Note [facility] Comment: Lipid management should be guided by a p atient? s ASCVD risk, goals and preferences. ACC/AHA Guidelines recommend high intens ity statin if clinical ASCVD or LDL greater than or equal to 190 mg/dL. http://tinyurl.com/KDO-UXI-Awtqfcqgy Adults aged 40-75 with LDL 70-189 mg/dL should have their 10 year ASCVD risk estimated with the ACC/AHA ASCVD risk es timator http://tools.acc.org/DVHUQ-Xrlf-Uxuppslm r/ Statin should be discussed if risk [...] Cuevas MD CHEMISTRY ORDERABLES Performing Organization Address City/[facility]/ZIP Code Phon e Number [address] TSH (12/09/2021 6:18 AM EDT) P athologist Signature TSH 1.60 0.27 - 4.20 [employer] mcIU/mL [facility] Comment: Reference Interval (mcIU/mL): Females: ??First Trimester: 0.23-3.88 ??Second Trimester: 0.22-3.90 ??Third Trimester: 0.44-4.66 Specimen Anatomical Collection Method Collection Time Receive d Time (Source) Location / / Volume Laterality Blood 12/09/2021 6:18 AM 2 6:33 EDT AM EDT Resulting Agency Comment Spec In Lab Iker Cuevas MD CHEMISTRY ORDERABLES Performing Organization Address City/[facility]/[place] [address] Hepatic Function Panel (12/09/2021 [...] CLINIC LABORATORY Total 1.1 0.2 - 1.3 [facility] Bilirubin mg/dL [facility] Bili, Direct 0.2 0.0 - 0.3 [facility] Specimen Anatomical Collection Method Collection Time Receive d Time (Source) Location / / Volume Laterality Blood 12/09/2021 6:18 AM 6:33 EDT AM EDT Resulting Agency Comment Spec In Lab Iker Cuevas MD CHEMISTRY ORDERABLES Performing Organization Address City/State/[place] [address] (ABNORMAL) BMP w/fasting Glucose (12/09/2021 6:18 AM EDT) athologist Signature Glucose 235 (H) 65 - 99 [facility] Fasting mg/dL [facility] Comment: [...] of Diabetes Mellitus, Position Statement from the Canadian Diabetes Association. ??Diabete s Care, Volume 33, [...] Estimated GFR 52 (L) >=60 mL/min/1.73 m?? [facility] [...] Cuevas MD CHEMISTRY ORDERABLES Performing Organization Address City/[facility]/ZIP Code Phon e Number [address] Magnesium (12/09/2021 6:18 AM EDT) P athologist Signature Magnesium 0.81 0.69 - 1.07 [facility] mmol/L [facility] Specimen Anatomical Collection Method Collection Time Receive d Time (Source) Location / / Volume Laterality Blood 12/09/2021 6:18 AM 2 6:33 EDT AM EDT Resulting Agency Comment Spec In Lab Iker Cuevas MD CHEMISTRY ORDERABLES Performing Organization Address City/[facility]/ZIP Code Phon e Number [address] (ABNORMAL) Troponin (12/09/2021 6:18 [...] additional sample may be indicated. Reference: Third Hye Definition of Myocardial Infarction. Journal of the Canadian College of Cardiology 2012;60:1581-98 Specimen Anatomical Collection Method Collection Time Receive d Time (Source) Location / / Volume Laterality Blood 12/09/2021 6:18 AM 6:33 EDT AM EDT Resulting Agency Comment Spec In Lab Iker Cuevas MD CHEMISTRY ORDERABLES Performing Organization Address City/State/ZIP Code [place] [address] XR Chest One View [...] who have questions please contact the health family day care worker that requested your imaging first. ? Electronically signed by: Yoselin White, [facility] ([phone]), at 12/09/2021 5:35 AM Narrative 12/09/2021 5:35 [...] ho have questions please contact the health family day care worker that requested your imaging first. Electronically signed by: Yoselin White, [facility] ([phone]), at 12/09/2021 5:35 AM Amber Sanches MD IMG DX ORDERABLES (ABNORMAL) BLOOD GAS 2 ARTERIAL (12/09/2021 5:14 AM EDT) Analysis Performed At Patho logist Time Signature pH Art 7.43 7.35 - [facility] 7.45 [facility] pCO2 Art 36 35 - 45 [facility] mmHg [facility] pO2 Art 67 (L) 85 - 104 [facility] LABORATORY HCO3 Art 23.4 20.[address] - [facility] 26.0 [facility] mmol/[facility] BE Art -0.9 -3.0 - 3.0 [facility] mmol/L [facility] Hgb Blood Gas 13.2 (L) 13.7 - [facility] 16.5 g/dL [facility] O2HB Art 91.3 (L) 94.0 - [facility] 97.0 % [facility] COHB Art 0.4 % [facility] [...] Bld 223 (H) 65 - 199 mg/dL [facility] Comment: Diabetes: >=200 mg/dL plus symp toms. Lactate WB 2.7 (H) 0.5 - 2.2 mmol/L [facility] FIO2 Art 35 % [facility] Flow Art 8.0 LPM [facility] PF Ratio Art 191 [facility] Specimen Anatomical Collection Method Collection Time Receive d Time (Source) Location / / Volume Laterality Blood 12/09/2021 5:14 AM 2 5:14 EDT AM EDT Iker Cuevas MD CHEMISTRY ORDERABLES Performing Organization Address City/[facility] [place] [address] POCT Glucose (12/09/2021 4:46 AM EDT) P athologist Signature POC Glucose 198 65 - 199 [facility] mg/dL [facility] Comment: Supplemental [...] [facility]/[place] [address] (ABNORMAL) POCT Glucose (12/09/2021 3:01 AM EDT) P athologist Signature POC Glucose 225 (H) 65 - 199 [facility] mg/dL [facility] Comment: Supplemental ranges: <140 mg/dL before meals <180 mg/dL all other times of the day Specimen Anatomical Collection Method Collection Time Receive d Time (Source) Location / / Volume Laterality Blood 12/09/2021 3:01 AM 2 3:01 EDT AM EDT Iker Cuevas MD POINT OF CARE TEST ORDERABLE S Performing Organization Address City/State/[place] [address] (ABNORMAL) POCT Glucose (12/08/2021 10:55 PM EDT) athologist Signature POC Glucose 327 (H) 65 - 199 [facility] mg/dL [facility] Comment: Supplemental [...] [facility]/[place] [address] Heparin (unfractionated) Level (12/08/2021 [...] Organization Address City/State/[place] [address] (ABNORMAL) Troponin (12/08/2021 10:03 [...] additional sample may be indicated. Reference: Third Hye Definition of Myocardial Infarction. Journal of the Canadian College of Cardiology 2012;60:1581-98 Specimen Anatomical Collection Method Collection Time Receive d Time (Source) Location / / Volume Laterality Blood 12/08/2021 10:03 12/08/2021 PM EDT 10:31 PM EDT Resulting Agency Comment Spec In Lab Iker Cuevas MD CHEMISTRY ORDERABLES Performing Organization Address City/State/ZIP Code Phon e Number [facility] [address] (ABNORMAL) POCT Glucose (12/08/2021 [...] [facility]/ZIP Code Phon e Number [address] (ABNORMAL) POCT Glucose (12/08/2021 7:06 PM EDT) athologist Signature POC Glucose 442 (H) 65 - 199 [facility] mg/dL [facility] Comment: Supplemental [...] [facility]/[place] [address] Magnesium (12/08/2021 6:02 PM EDT) athologist Signature Magnesium 0.86 0.69 - 1.07 [facility] mmol/L [facility] Specimen Anatomical Collection Method Collection Time Receive d Time (Source) Location / / Volume Laterality Blood 12/08/2021 6:02 PM 2 6:36 EDT PM EDT Resulting Agency Comment Spec In Lab Iker Cuevas MD CHEMISTRY ORDERABLES Performing Organization Address City/[facility]/[place] [address] (ABNORMAL) Basic Metabolic Panel (non-fasting) (12/08/2021 6:02 PM EDT) athologist Signature Glucose Lvl 392 (H) 65 - 199 [facility] mg/dL [facility] Comment: Diabetes: >=200 mg/dL plus symp toms BUN 41 (H) 10 - 20 mg/dL [facility] Creatinine 1.44 0.80 - 1.50 mg/dL [facility] [...] 107 mmol/L [facility] CO2 20 (L) 22 - 31 mmol/L [facility] [...] Organization Address City/State/[place] [address] (ABNORMAL) Differential, Automated (12/08/2021 6:02 PM EDT) [facility] gist Method Time Signature Neutrophils % 89.5 % [facility] Neutr Abs (ANC) 13.97 (H) 1.70 - [facility] 6.10 [facility] x10(3)/[facility] L LABORATORY Lymphocytes % 3.7 % [facility] Lymphocytes Abs 0.6 (L) 0.9 - 3.2 [facility] x10(3)/[facility] LABORATORY Monocytes % 6.1 % [facility] Monocyte Abs 1.0 (H) 0.3 - 0.9 [facility] x10(3)/[facility] LABORATORY Eosinophils % 0.0 % [facility] Eosinophils Abs 0.0 0.0 - 0.4 [facility] x10(3)/[facility] LABORATORY Basophils % 0.2 % [facility] Basophils Abs 0.0 0.0 - 0.1 [facility] x10(3)/[facility] LABORATORY Immature Gran % 0.50 % [...] Organization Address City/State/[place] [address] (ABNORMAL) Hemogram (12/08/2021 6:02 PM EDT) Analysis Performed At Patho logist Time Signature WBC 15.6 (H) 4.0 - 9.5 [facility] x10(3)/[facility] LABORATORY RBC 4.05 (L) 4.58 - [facility] 5.54 [facility] x10(6)/[facility] LABORATORY Hemoglobin 11.8 (L) 13.7 - [facility] 16.5 g/dL [facility] Hematocrit 35.8 (L) 40.5 - [facility] 48.5 % [facility] MCV 88.4 82.9 - [facility] 93.1 [facility] LABORATORY MCH 29.1 27.5 - [facility] ZHAORY[facility] 32.1 pg [facility] MCHC 33.0 32.0 - [facility] Z[facility]ORY[facility] 35.7 g/dL [facility] Platelets 178 145 - 357 [facility] x10(3)/[facility] LABORATORY RDWSD 49.3 (H) 36.0 - [facility] ZHAORYAN 45.0 [facility] LABORATORY RDWCV 15.1 (H) 11.4 - [facility] R[facility]AN 13.8 % [facility] MPV 10.4 7.6 - 12.9 [facility] fL [facility] nRBC % Auto 0.0 % [facility] nRBC Abs Auto 0.000 0.000 - [place] 0.000 [facility] x10(3)/[facility] LABORATORY Specimen Anatomical Collection Method Collection Time Receive d Time (Source) Location / / Volume Laterality Blood 12/08/2021 6:02 PM 6:36 EDT PM EDT Resulting Agency Comment Spec In Lab Morgan BROWN HEMATOLOGY ORDERABLES Performing Organization Address City/State/[place] [address] (ABNORMAL) Troponin (12/08/2021 6:02 [...] additional sample may be indicated. Reference: Third Hye Definition of Myocardial Infarction. Journal of the Canadian College of Cardiology 2012;60:1581-98 Specimen Anatomical Collection Method Collection Time Receive d Time (Source) Location / / Volume Laterality Blood 12/08/2021 6:02 PM 6:36 EDT PM EDT Resulting Agency Comment Spec In Lab Iker Cuevas MD CHEMISTRY ORDERABLES Performing Organization Address City/State/ZIP Code Phon e Number [place] [id number] COVID-19 PCR (12/08/2021 5:00 PM EDT) [facility] Method Time Signature SARS-CoV-2 Not Detected Not Detected BARBARA RNA PCR [facility] Comment: This result should [...] using the Simplexa COVID-19 Direct Assay by [employer] [facility] as authorized by the FDA issued Emergency [...] fact sheets at the following FDA website: https://www.fda.gov/medical-devices/mzodxissers-vzhybgw-5027-qqoov-97-uwnyzcjby- ifq-kybnqfcfymkljn-clkwjzz-devices/aamhw-fxbqaxzntbs-joft SARS-CoV-2 Source HARVEST SUPERVISOR Swab [facility] Specimen (Source) Anatomical Collection Method Collection Time Re ceived Time Location / / Volume Laterality Nasopharyngeal Swab 12/08/2021 5:00 12/08 PM EDT 6:03 PM EDT Comment: Symptoms->Surveillance Resulting Agency Comment Spec In Lab Iker Cuevas MD MICROBIOLOGY - GENERAL ORDER [place] Performing Organization Address City/State/[place] [address] EKG 12 Lead (12/08/2021 4:40 PM EDT) Component Value Ref Range Test Analysis Performed Pathologis t Method Time At Signature Ventricular rate 78 BPM MUSE SYSTEM Atrial Rate 78 BPM MUSE SYSTEM P-R Interval 152 ms MUSE SYSTEM QRS Duration 96 ms MUSE SYSTEM Q-T Interval 396 ms MUSE SYSTEM QTC Calculated 451 ms MUSE SYSTEM (Bezet) Calculated P [place] 44 degrees MUSE SYSTEM Calculated R [place] -31 degrees MUSE SYSTEM Calculated T [place] 124 degrees MUSE SYSTEM INTERPRETATION Normal sinus [...] [facility] mg/dL [facility] Comment: Supplemental ranges: <140 mg/dL before meals <180 mg/dL all other times of the day Specimen Anatomical Collection Method Collection Time Receive d Time (Source) Location / / Volume Laterality Blood 12/08/2021 4:34 PM 2 4:34 EDT PM EDT Iker Ceuvas MD POINT OF CARE TEST ORDERABLE S Performing Organization Address City/State/[place] [address] documented in this encounter [...] Given 11/23 10:30 AM EDT 300 mcg (LARD REFINER) ONCE PRN, Starting on Wed12/10/21 at 1030, [...] - Reason: Transfer to a Procedural area)1230 ([facility] Unhold - Provider: Admin Adt) 650 [...] - Reason: Transfer to a Procedural area)1230 ([facility] Unhold - Provider: Admin Adt) 10 [...] (Intra-Procedure), Routine niCARdipine (Cardene) (100 mcg/mL) dilution (LARD REFINER) (CANCELED) 1030 (Given - Provider: Vitaliy Nobles [...] episode. & nbsp; For persistent hypoglycemia, con senior oracle database developer longer-acting treatment for the duration of the [...]
Routine documented in this encounter Care Teams Roller Shop Utility Worker Relationship Specialty Start Date End Date Lovely Vicente MD PCP - General 04/16/[address] [place] [address] documented as of this encounter
--- OUTSIDE RECORDS SUMMARY | 2022-04-17 08:20 | XMS_ITS | Encounter Summary ---
:1945 Author Organization [facility] [address] Care Team Providers Name Role Phone Lovely Vicente MD Primary Care Provider Encounter Details Date Type Department Care Team Description 03/20/2021 Ancillary Procedure Radiology Library [place] [address] [place] [address] [phone] Social History Tobacco Use Types Packs/Day Years [facility] [address] [place], [place] [address] (Wo rk) 05/28/2022 Laboratory Appointment Lab 05/28/2022 Office Visit Cardiology Zulma Dolan MD [facility] [place] [address] Liz Poole PA [facility] [place] [address] 06/10/2022 Office Visit Dermatology Laura Scherer MD [facility] ER [address] [place], [place] [address] [...] Address City/State/ZIP Code Phon e Number [place], [place] documented in this encounter Visit Diagnoses Not on filedocumented in this encounter Care Teams Manager Sales Support Relationship Specialty Start Date End Date Lovely Vicente MD PCP - General 04/16/[address] [place] [address] documented as of this encounter
--- OUTSIDE RECORDS SUMMARY | 2022-04-17 08:21 | XMS_ITS | Encounter Summary ---
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 Espino On IV antibiotics at [facility] Today: Mr. Fatima is [...] at [facility] and follow his wound on his right lower extremity. And she will continue to direct antibiotic treatment. Ihave asked that the echocardiogram results be faxed to Dr. Zurita at [facility]. 1. ASCVD Continue ASA, BB and statin [...] and bone removal by Dr. Aguero at [facility]. Currently receiving IV antibiotics at [facility] ? Plan: 1. A [...] [facility] [address] [place], [place] [address] (Wo rk) 05/28/2022 Laboratory Appointment Lab 05/28/2022 Office Visit Cardiology Zulma Dolan MD [facility] [place] [address] Liz Poole PA [facility] [place] [address] 06/10/2022 Office Visit Dermatology Laura Scherer MD [facility] [address] [place] [place], [place] [address] (Wo rk) documented as of this encounter Results (ABNORMAL) Basic Metabolic Panel (non-fasting) (10/07/2017 8:48 AM EDT) athologist Signature Glucose Lvl 99 65 - 199 [facility] mg/dL [facility] Comment: [...] [facility] Estimated GFR >60 >=60 [facility] Comment: The reported eGFR should be multiplied b y 1.2 for patients. The MDRD is not an appropriate measure o f renal function for patients with body mass extremes or in patients with acute kidney failure. http://BiTaksi.Cabify/DHnkdep http://Jetabroad/DHMCnkf Specimen Anatomical Collection Method Collection Time Receive d Time (Source) Location / / Volume Laterality Blood specimen 10/07/2017 8:48 AM 018 8:50 (specimen) EDT AM EDT Resulting Agency Comment Spec In Lab Danette Maxwell APRN CHEMISTRY ORDERABLES Performing Organization Address City/State/[place] [address] (ABNORMAL) pro-Brain Natriuretic Peptide (10/07/2017 8:48 AM EDT) P athologist Signature ProBNP 1,170 (H) <=125 [facility] pg/mL [facility] Specimen Anatomical Collection Method Collection Time Receive d Time (Source) Location / / Volume Laterality Blood specimen 10/07/2017 8:48 AM 018 8:50 (specimen) EDT AM EDT Resulting Agency Comment Spec In Lab Danette Maxwell APRN CHEMISTRY ORDERABLES Performing Organization Address City/State/[place] [address] documented in this encounter Visit Diagnoses Diagnosis Chronic systolic heart failure S/P CABG x 3 Postsurgical aortocoronary bypass status On amiodarone therapy Atrial fibrillation, unspecified type ASCVD (arteriosclerotic cardiovascular d isease) Unspecified cardiovascular disease documented in this encounter Care Teams Entry Level Sales Consultant Relationship Specialty Start Date End Date Lovely Vicente MD PCP - General 04/16/[address] [place] [address] documented as of this encounter
--- OUTSIDE RECORDS SUMMARY | 2022-04-17 08:21 | XMS_ITS | Encounter Summary ---
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 Post-op atrial fibrillation [id number] (CHF, HTN, DM, vascular disease, thromboembolism) [...] Dolan MD [facility] [address] [place] [address] (Wo rk) 05/28/2022 Laboratory Appointment Lab 05/28/2022 Office Visit Cardiology Zulma Dolan [place] [facility] [place] [address] Liz Poole PA [facility] [place] [address] 06/10/2022 Office Visit Dermatology Laura Scherer MD [facility] ER [address] [place], [place] [address] (Wo rk) documented as of this encounter Results Lipid Panel (08/15/2018 8:04 AM EST) athologist Signature Chol, Total 75 mg/dL [facility] Comment: Lower Risk: <200 mg/dL Average Risk: 200-239 mg/dL Higher Risk: >jq=539 mg/dL Triglycerides 185 mg/dL [facility] Comment: Average Risk/Lower Risk: <150 mg/dL Borderline High Risk: 150-199 mg/dL High Risk: 200-499 mg/dL Very High Risk: >he=985 mg/dL HDL 32 mg/dL [facility] Comment: Males: ?? Higher Risk: <40 mg/dL Females: ?? HIgher Risk: <50 mg/dL LDL Cholesterol 6 mg/dL [facility] Comment: Lowest Risk: <100 mg/dL Lower Risk: 100-129 mg/dL Borderline High Risk: 130-159 mg/dL High Risk: 160-189 mg/dL Very High Risk: >bu=303 mg/dL Chol/HDL Ratio 2.3 ratio [facility] Lipid Interpretation See Note [facility] Comment: Lipid management should be guided by a p atient? s ASCVD risk, goals and preferences. ACC/AHA Guidelines recommend high intens ity statin if clinical ASCVD or LDL greater than or equal to 190 mg/dL. http://Related Content Database (RCDb)url.com/GWY-AVC-Sbvzidqsm Adults aged 40-75 with LDL 70-189 mg/dL should have their 10 year ASCVD risk estimated with the ACC/AHA ASCVD risk es timator http://tools.acc.org/FXUIQ-Thsi-Yutumczi r/ Statin should be discussed if risk [...] Organization Address City/State/ZIP [place] [address] (ABNORMAL) Basic Metabolic Panel (non-fasting) (08/15/2018 8:04 AM EST) P athologist Signature Glucose Lvl 116 65 - 199 [facility] mg/dL [facility] Comment: Diabetes: [...] LABORATORY Calcium 9.0 8.5 - 10.5 mg/dL [facility] Estimated GFR 68 >=60 mL/min/1.73 m?? [facility] Comment: The eGFR was calculated using the CKD-EP I equation. As with all creatinine based estimates of kidney function, eGFR values calculated with the CKD-EPI equation are not accurate in patients wi th acute kidney failure, extremes of body mass or the acutely ill. http://OneID/[facility] eGFR 79 >=60 mL/min/1.73 m?? [facility] Comment: The eGFR was calculated using the CKD-EP I equation. As with all creatinine based estimates of kidney function, eGFR values calculated with the CKD-EPI equation are not accurate in patients wi th acute kidney failure, extremes of body mass or the acutely ill. http://OneID/[facility]f Specimen Anatomical Collection Method Collection Time Receive d Time (Source) Location / / Volume Laterality Blood specimen 08/15/2018 8:04 AM 019 8:20 (specimen) EST AM EST Resulting Agency Comment Spec In Lab Danette Maxwell APRN CHEMISTRY ORDERABLES Performing Organization Address City/State/ZIP Code Phon e Number [address] (ABNORMAL) pro-Brain Natriuretic Peptide (08/15/2018 8:04 AM EST) P athologist Signature ProBNP 1,797 (H) <=125 [facility] pg[facility] Specimen Anatomical Collection Method Collection Time Receive d Time (Source) Location / / Volume Laterality Blood specimen 08/15/2018 8:04 AM 019 8:20 (specimen) EST AM EST Resulting Agency Comment Spec In Lab Danette Maxwell APRN CHEMISTRY ORDERABLES Performing Organization Address City/State/[place] [address] documented in this encounter Visit Diagnoses Diagnosis Chronic systolic heart failure Cardiomyopathy, ischemic Other specified forms of chronic ischemi c heart disease ASCVD (arteriosclerotic cardiovascular d isease) Unspecified cardiovascular disease Essential hypertension Unspecified essential hypertension MARIA VICTORIA on CPAP Obstructive sleep apnea (adult) (pediatr ic) documented in this encounter Care Teams Wait Staff Relationship Specialty Start Date End Date Lovely Vicente MD PCP - General 04/16/[address] [place] [address] documented as of this encounter
--- OUTSIDE RECORDS SUMMARY | 2022-04-17 08:21 | XMS_ITS | Encounter Summary ---
:1945 Author Organization [place] [address] Care Team Providers Name Role Phone Lovely Vicente MD Primary Care Provider Encounter Details Date Type Department Care Team Description 07/28/2019 Office Visit Cardiology at [facility] Danette Maxwell Chronic systolic heart failu re; [facility] A, STACIE ASHD (arteriosclerotic heart disease); Drive [facility] S/P CABG x 3; [place], [place] MARIA VICTORIA (obstructive sleep apnea) on CPAP; [phone] CARDIOLOGY Mixed hyperlipidemia [phone] [place], [place] [address] Social History Tobacco Use Types [...] in this encounter Progress Notes Danette Maxwell, LEACH RUNNER - 07/28/2019 9:40 AM EST Images [...] regurgitation present. 07/07/2019 - 07/21/2019 Zio Patch Rfid Strategist The patient had a minimum heart rate [...] K+ 4.5 today 6. Post-op atrial fibrillation [id number] (CHF, HTN, DM, vascular disease, thromboembolism) [...] advised: Refer to EP (Dr. Mcelroy in [place]) 5. Heart Failure Clinic follow up scheduled for: 3 months with proBNP and BMP Danette Maxwell APRN 07/28/2019 documented in this encounter Plan of Treatment Upcoming Encounters Date Type Specialty Care Team Description 05/28/2022 Appointment Cardiology Zulma Dolan MD [facility] [place], [place] [address] (Wo rk) 05/28/2022 Laboratory Appointment Lab 05/28/2022 Office Visit Cardiology Zulma Dolan MD [facility] [place] [address] Liz Poole PA [facility] [place] [address] 06/10/2022 Office Visit Dermatology Laura Scherer MD [facility] [address] [place], [place] [address] (Wo rk) documented as of this encounter Results (ABNORMAL) Basic Metabolic Panel (non-fasting) (07/28/2019 8:36 AM EST) P athologist Signature Glucose Lvl 153 65 - 199 [facility] mg/dL [facility] Comment: Diabetes: >=200 mg/dL plus symp toms BUN 22 (H) 10 - 20 mg/dL [facility] [...] LABORATORY Estimated GFR 70 >=60 mL/min/1.73 m?? [facility] Comment: The eGFR was calculated using the CKD-EP I equation. As with all creatinine based estimates of kidney function, eGFR values calculated with the CKD-EPI equation are not accurate in patients wi th acute kidney failure, extremes of body mass or the acutely ill. http://RivalHealth/[facility] eGFR 81 >=60 mL/min/1.73 m?? [facility] Comment: The eGFR was calculated using the CKD-EP I equation. As with all creatinine based estimates of kidney function, eGFR values calculated with the CKD-EPI equation are not accurate in patients wi th acute kidney failure, extremes of body mass or the acutely ill. http://RivalHealth/[facility] CITY[facility] Specimen Anatomical Collection Method Collection Time Receive d Time (Source) Location / / Volume Laterality Blood specimen 07/28/2019 8:36 AM 020 8:46 (specimen) EST AM EST Resulting Agency Comment Spec In Lab Danette Maxwell APRN CHEMISTRY ORDERABLES Performing Organization Address City/State/ZIP Code Phon e Number [address] (ABNORMAL) pro-Brain Natriuretic Peptide (07/28/2019 8:36 AM EST) athologist Signature ProBNP 647 (H) <=125 pg/mL [facility] Specimen Anatomical Collection Method Collection Time Receive d Time (Source) Location / / Volume Laterality Blood specimen 07/28/2019 8:36 AM 020 8:46 (specimen) EST AM EST Resulting Agency Comment Spec In Lab Danette Maxwell APRN CHEMISTRY ORDERABLES Performing Organization Address City/[facility]/ZIP [place] [address] documented in this encounter Visit Diagnoses Diagnosis Chronic systolic heart failure ASHD (arteriosclerotic heart disease) Coronary atherosclerosis of unspecified type of vessel, [place] or graft S/P CABG x 3 Postsurgical aortocoronary bypass status MARIA VICTORIA (obstructive sleep apnea) on CPAP Obstructive sleep apnea (adult) (pediatr ic) Mixed hyperlipidemia documented in this encounter Care Teams Ethnoarchaeologist Relationship Specialty Start Date End Date Lovely Vicente MD PCP - General 04/16/[address] [place] [address] documented as of this encounter
--- OUTSIDE RECORDS SUMMARY | 2022-04-17 08:21 | XMS_ITS | Encounter Summary ---
:1945 Author Organization [facility] [place] [address] Care Team Providers Name Role Phone Lovely Vicente MD Primary Care Provider Encounter Details Date Type Department Care Team Description 07/28/2019 Laboratory Appointment Lab 3L [facility] [place] [id number] Social History Tobacco Use Types Packs/Day Years [...] [facility] [place], [place] [address] (Wo rk) 05/28/2022 Laboratory Appointment Lab 05/28/2022 Office Visit Cardiology Zulma Dolan MD [facility] [place] [address] Liz Poole PA [facility] [place] [address] 06/10/2022 Office Visit Dermatology Laura Scherer MD [facility] [address] [place] [address] (Wo rk) documented as of this encounter [...] athologist Signature ProBNP 647 (H) <=125 pg/mL [facility] Specimen Anatomical Collection Method Collection Time Receive d Time (Source) Location / / Volume Laterality Blood specimen 07/28/2019 8:36 AM 020 8:46 (specimen) EST AM EST Resulting Agency Comment Spec In Lab Danette Maxwell APRN CHEMISTRY ORDERABLES Performing Organization Address City/State/Z[place] [address] (ABNORMAL) Basic Metabolic Panel (non-fasting) (07/28/2019 8:36 AM EST) athologist Signature Glucose Lvl 153 65 - [address] [facility] mg/dL [facility] Comment: Diabetes: >=200 mg/dL plus symp toms BUN 22 (H) 10 - 20 mg/dL [facility] [...] LABORATORY Estimated GFR 70 >=60 mL/min/1.73 m?? [facility] Comment: The eGFR was calculated using the CKD-EP I equation. As with all creatinine based estimates of kidney function, eGFR values calculated with the CKD-EPI equation are not accurate in patients wi th acute kidney failure, extremes of body mass or the acutely ill. http://NearVerse/StemPathnkf eGFR 81 >=60 mL/min/1.73 m?? [facility] Comment: The eGFR was calculated using the CKD-EP I equation. As with all creatinine based estimates of kidney function, eGFR values calculated with the CKD-EPI equation are not accurate in patients wi th acute kidney failure, extremes of body mass or the acutely ill. http://NearVerse/[facility] – TULSAnkf Specimen Anatomical Collection Method Collection Time Receive d Time (Source) Location / / Volume Laterality Blood specimen 07/28/2019 8:36 AM 020 8:46 (specimen) EST AM EST Resulting Agency Comment Spec In Lab Danette Maxwell APRN CHEMISTRY ORDERABLES Performing Organization Address City/State/[place] [address] documented in this encounter Visit Diagnoses Diagnosis Chronic systolic heart failure documented in this encounter Care Teams Eyeglass Lens Generator Relationship Specialty Start Date End Date Lovely Vicente MD PCP - General 04/16/[address] [place] [address] documented as of this encounter
--- OUTSIDE RECORDS SUMMARY | 2022-04-17 08:21 | XMS_ITS | Encounter Summary ---
:1945 Author Organization [facility] [place] [address] Care Team Providers Name Role Phone Lovely Vicente MD Primary Care Provider Encounter Details Date Type Department Care Team Description 02/19/2020 Telephone Dermatology at [facility] Ariana Wilder LPN [address] [place] [address] Social History Tobacco Use Types Packs/Day [...] Zulma Dolan MD [facility] [place], [place] [address] (Wo rk) 05/28/2022 Laboratory Appointment Lab 05/28/2022 Office Visit Cardiology Zulma Dolan MD [facility] [place] [address] Liz Poole PA [facility] [place] [address] 06/10/2022 Office Visit Dermatology Laura Scherer MD [facility] [address] [place], [place] [address] (Wo rk) documented as of this encounter Visit Diagnoses Not on filedocumented in this encounter Care Teams Stopboard Assembler Relationship Specialty Start Date End Date Lovely Vicente MD PCP - General 04/16/[address] [place] [address] documented as of this encounter
--- OUTSIDE RECORDS SUMMARY | 2022-04-17 08:21 | XMS_ITS | Encounter Summary ---
:1945 Author Organization [place] [address] Care Team Providers Name Role Phone Lovely Vicente MD Primary Care Provider Encounter Details Date Type Department Care Team Description 11/07/2019 TH Visit Cardiology at [facility] Danette Maxwell (arteriosclerotic heart disease); (TeleHealth) [facility] STACIE Gomes Cardiomyopathy, ischemic; Drive [facility] S/P CABG x 3; [place], [place] MARIA VICTORIA (obstructive sleep apnea) on CPAP [phone] CARDIOLOGY [phone] [place], [place] [address] Social History Tobacco Use [...] regurgitation present. 07/07/2019 - 07/21/2019 Zio Patch Television Newscast Director The patient had a minimum heart [...] at last check 6. Post-op atrial fibrillation [id number] 7 (CHF, HTN, DM, vascular disease, thromboembolism) Amiodarone discontinued Continue coumadin INR managed by PCP 7. PAD 08/06/2017: Right 1st, 2nd, 3rd toe amputation 08/11/2017: Left??femoral arterial access, RLE??angiogram, Balloon angioplasty of R PT with Eleazar 2.5 x 80 10/25/2017: right popliteal-pedal bypass at [facility] Continue Coumadin 8. Hypothyrodism S/p thyroidectomy for [...] Zulma Dolan MD [facility] [place], [place] [address] (Wo rk) 05/28/2022 Laboratory Appointment Lab 05/28/2022 Office Visit Cardiology Zulma Dolan MD [facility] [place] [address] Liz Poole PA [facility] [place] [address] 06/10/2022 Office Visit Dermatology Laura Scherer MD [facility] DR [address] [place], [place] [address] (Wo rk) documented as of this encounter Visit Diagnoses Diagnosis ASHD (arteriosclerotic heart disease) Coronary atherosclerosis of unspecified type of vessel, [place] or graft Cardiomyopathy, ischemic Other specified forms of chronic ischemi c heart disease S/P CABG x 3 Postsurgical aortocoronary bypass status MARIA VICTORIA (obstructive sleep apnea) on CPAP Obstructive sleep apnea (adult) (pediatr ic) documented in this encounter Care Teams Rope Rider Relationship Specialty Start Date End Date Lovely Vicente MD PCP - General 04/16/[address] [place], [place] [address] documented as of this encounter
--- OUTSIDE RECORDS SUMMARY | 2022-04-17 08:21 | XMS_ITS | Encounter Summary ---
:1945 [place] [address] Care Team Providers Name Role Phone Lovely Vicente MD Primary Care Provider Encounter Details Date Type Department Care Team Description 08/15/2018 [facility] [place] [address] Social History Tobacco Use Types Packs/Day [...] MD [facility] [place], [place] [address] (Wo rk) 05/28/2022 Laboratory Appointment Lab 05/28/2022 Office Visit Cardiology Zulma Dolan MD [facility] [place] [address] Liz Poole PA [facility] [place] [address] 06/10/2022 Office Visit Dermatology Laura Scherer MD [facility] ER DR [address] [place], [place] [address] (Wo rk) documented as of this encounter Procedures Procedure Name Priority Date/Time Associated Diagnosis Comme nts PROTHROMBIN TIME Routine 08/15/2018 8:04 AM Resul ts for this EST procedure are i n the results section. documented in this encounter Results (ABNORMAL) Prothrombin Time (08/15/2018 8:04 AM EST) P athologist Signature PT 24.0 (H) 9.4 - 12.5 [facility] LABORATORY INR 2.1 [facility] Comment: An [...] Organization Address City/State/[place] [address] documented in this encounter Visit Diagnoses Not on filedocumented in this encounter Care Teams Vp Information Technology Relationship Specialty Start Date End Date Lovely Vicente MD PCP - General 04/16/[address] [place] [address] documented as of this encounter
--- OUTSIDE RECORDS SUMMARY | 2022-04-17 08:21 | XMS_ITS | Encounter Summary ---
:1945 Author Organization [facility] Address [facility] [address] [address] Care Team Providers Name Role Phone Lovely Vicente MD Primary Care Provider Reason for Referral Diagnostic Test (Routine) - Closed Specialty Diagnoses / Procedures Referred By Contact Refer red To Contact Cardiology Diagnoses Chronic systolic heart failure Danette Maxwell APRN [facility] Non-Inv Card Lab Procedures Echocardiogram Transthoracic(Leb) [facility] [place] [address] [place] [address] Referral ID Status Reason Start Date Expiration Date Visits V isits Requested Authorized [id number] Closed Specialty 07/17/2019 09/14/2019 1 1 Service Requested Encounter Details Date Type Department Care Team Description 01/16/2019 [place] [place] [facility] Danette Maxwell, Chronic systolic heart failu re; [facility] STACIE Cardiomyopathy, ischemic; Drive [facility] Hx of thyroid cancer; [place], [place] DR [place]MORE (arteriosclerotic heart disease); [phone] CARDIOLOGY MARIA VICTORIA (obstructive sleep apnea) on CPAP [phone] [place], [place] [address] (Wo rk) Social History Tobacco Use Types [...] K+ 4.6 today 6. Post-op atrial fibrillation [id number] 7 (CHF, HTN, DM, vascular disease, thromboembolism) [...] MD [facility] [place], [place] [address] (Wo rk) 05/28/2022 Laboratory Appointment Lab 05/28/2022 Office Visit Cardiology Zulma Dolan MD [facility] [place] [address] Liz Poole PA [facility] [place] [address] 06/10/2022 Office Visit Dermatology Laura Scherer MD [facility] DR [address]-DERMAT OLOGY [place], [place] [address] (Wo rk) documented [...] Mccollum ? (Age): 1945(74y) Med Rec#: ? [id number] ?Sex: ?M ? Site Loc: ? [facility] ?Ht / Wt: ??172(cm)/81(kg) Pt. Loc: ?Echo Lab ?BSA: ?1.94 Study Date: ?? 07/28/2019 ?Pt. Type: Outpatient Tape: ? Referring: MARY ELLEN Reading: Ifeanyi Truong ([id number]) Hot Blaster: Fadumo Flanagan RDCS, REGINA Diagnosis: *Chronic systolic [...] E-wave Vmax ?1 ?m/sec ? MV deceleration aomj530.5 ? msec ? MV A-wave Vmax ?1 [...] ? Mid-Inferior ?Hypokinetic ? Mid-Inferoseptal ?Normal ? [place]-Septal ? Normal ? [place]-Anterior ? Hypokinetic ? [place]-Lateral ?Normal ? [place]-Inferior ? Akinetic ? [place]-Tip ?Hypokinetic ? This report has been electronically sign ed by: _ Ifeanyi Truong M.D. ? 07/28/2019 0 8:38:01 Images reviewed and interpretation [facility]CH[facility] Procedure Note Ifeanyi Truong MD - 07/28/2019Formatt ing of this note might be different from the original. Procedure: Transthoracic Echocardiogram Patient: NATALYA MCBRIDE(Age): [birth year]74y) Med Rec#: [id number] Sex: M [place] Loc: [facility] Ht / Wt: 172(cm)/81(kg) Pt. Loc: Echo Lab BSA: 1.94 Study Date: 07/28/2019 Pt. Type: Outpati ent Tape: Referring: MARY ELLEN Reading: Ifeanyi Truong ([id number]) Hot Blaster: Fadumo Flanagan [facility], REGINA Diagnosis: *Chronic systolic (congestive) [...] MV E-wave Vmax 1 m/sec MV deceleration ghxi800.5 msec MV A-wave Vmax 1 m/sec MV [...] Normal Mid-Posterolateral Normal Mid-Inferior Hypokinetic Mid-Inferoseptal Normal [place]-Septal Normal [place]-Anterior Hypokinetic [place]-Lateral Normal [place]-Inferior Akinetic [place]-Tip Hypokinetic This report has been electronically sign ed by: _ Ifeanyi Truong M.D. 07/28/2019 08:38:0 1 Images reviewed and interpretation verif ied [facility] Cardiac Ultrasound Laboratory Danette Maxwell APRN ECHO ORDERABLES (ABNORMAL) Basic Metabolic Panel (non-fasting) (01/16/2019 7:49 AM EDT) P athologist Signature Glucose Lvl 105 65 - 199 [facility] mg/dL [facility] [...] of body mass or the acutely ill. http://Acompli/OptiWi-finkf eGFR 79 >=60 mL/min/1.73 m?? [facility] Comment: The eGFR was calculated using the CKD-EP I equation. As with all creatinine based estimates of kidney function, eGFR values calculated with the CKD-EPI equation are not accurate in patients wi th acute kidney failure, extremes of body mass or the acutely ill. http://Acompli/[facility]ING[facility]kf Specimen Anatomical Collection Method Collection Time Receive d Time (Source) Location / / Volume Laterality Blood specimen 01/16/2019 7:49 AM 019 7:55 (specimen) EDT AM EDT Resulting Agency Comment Spec In Lab Danette Maxwell APRN CHEMISTRY ORDERABLES Performing Organization Address City/State/[place] [address] (ABNORMAL) pro-Brain Natriuretic Peptide (01/16/2019 7:49 AM EDT) P athologist Signature ProBNP 780 (H) <=125 pg/mL [facility] Specimen Anatomical Collection Method Collection Time Receive d Time (Source) Location / / Volume Laterality Blood specimen 01/16/2019 7:49 AM 019 7:55 (specimen) EDT AM EDT Resulting Agency Comment Spec In Lab Danette Maxwell HUMAN SERVICES ASSISTANT CHEMISTRY ORDERABLES Performing Organization Address City/State/[place] [address] documented in this encounter Visit Diagnoses Diagnosis Chronic systolic heart failure Cardiomyopathy, ischemic Other specified forms of chronic ischemi c heart disease Hx of thyroid cancer Personal history of malignant neoplasm o f thyroid ASHD (arteriosclerotic heart disease) Coronary atherosclerosis of unspecified type of vessel, [place] or graft MARIA VICTORIA (obstructive sleep apnea) on CPAP Obstructive sleep apnea (adult) (pediatr ic) Chronic systolic heart failure documented in this encounter Care Teams Teletypesetter Monitor Relationship Specialty Start Date End Date Lovely Vicente MD PCP - General 04/16/[address] [place] [address] documented as of this encounter
--- OUTSIDE RECORDS SUMMARY | 2022-04-17 08:21 | XMS_ITS | Encounter Summary ---
:1945 Author Organization [facility] [place] [address] Care Team Providers Name Role Phone Lovely Vicente MD Primary Care Provider Reason for Referral Diagnostic Test (Routine) - Closed Specialty Diagnoses / Procedures Referred By Contact Refer red To Contact Cardiology Diagnoses Chronic systolic heart failure Danette Maxwell APRN [facility] Non-Inv Card Lab Procedures Echocardiogram Transthoracic(Leb) [facility] [address] [place] [address] Referral ID Status Reason Start Date Expiration Date Visits V isits Requested Authorized [id number] Closed Specialty 07/17/2019 09/14/2019 1 1 Service Requested Reason for Visit Diagnostic Test (Routine) - Closed Specialty Diagnoses / Procedures Referred By Contact Refer red To Contact Cardiology Diagnoses Chronic systolic heart failure Danette Maxwell APRN [facility] Non-Inv Card Lab Procedures Echocardiogram Transthoracic(Leb) [facility] [place] [address] [place] [address] Referral ID Status Reason Start Date Expiration Date Visits V isits Requested Authorized [id number] Closed Specialty 07/17/2019 09/14/2019 1 1 Service Requested Encounter Details Date Type Department Care Team Description 07/28/2019 Hospital Encounter Non-Invasive Chronic s ystolic heart [place] [address] Social History Tobacco Use Types Packs/Day [...] Zulma Dolan MD [facility] [address] [place], [place] [address] (Wo rk) 05/28/2022 Laboratory Appointment Lab 05/28/2022 Office Visit Cardiology Zulma Dolan MD [facility] [place] [address] Liz Poole PA [facility] [place] [address] 06/10/2022 Office Visit Dermatology Laura Scherer MD [facility] DR TEJA GR-DERMAT OLOGY [place], [place] [address] (Wo rk) documented as of [...] AM EST Procedure: ?Transthoracic Echocardiogram Patient: ?NATALYA Mccollmu ? (Age): 1945(74y) Med Rec#: ? [id number] ?Sex: ?M ? Site Loc: ? [facility] ?Ht / Wt: ??172(cm)/81(kg) Pt. Loc: ?Echo Lab ?BSA: ?1.94 Study Date: ?? 07/28/2019 ?Pt. Type: Outpatient Tape: ? Referring: MARY ELLEN Reading: Ifeanyi Truong ([id number]) Vp Strategic Partnerships: Fadumo Flanagan RDCS, FASE Diagnosis: *Chronic systolic [...] E-wave Vmax ?1 ?m/sec ? MV deceleration yyva836.5 ? msec ? MV A-wave Vmax ?1 [...] ? Pulmonic Valve/Qp:Qs ?Value ?Units (Range) ? UT end-diastolic Vma1.1 ?m/sec ? Wall Motion: Segment Name ?Rest ? Base-Anteroseptal ?? Normal ? Base-Anterior ? Normal ? Base-Anterolateral ??Normal ? Base-Posterolateral Normal ? Base-Inferior ? Akinetic ? Base-Inferoseptal ?? Normal ? Mid-Anteroseptal ?Normal ? Mid-Anterior ?Hypokinetic ? Mid-Anterolateral ?? Normal ? Mid-Posterolateral ??Normal ? Mid-Inferior ?Hypokinetic ? Mid-Inferoseptal ?Normal ? [place]-Septal ? Normal ? [place]-Anterior ? Hypokinetic ? [place]-Lateral ?Normal ? [place]-Inferior ? Akinetic ? [place]-Tip ?Hypokinetic ? This report has been electronically sign ed by: _ Ifeanyi Truong M.D. ? 07/28/2019 0 8:38:01 Images reviewed and interpretation verif ied [facility] Cardiac Ultrasound Laboratory Procedure Note Ifeanyi Truong MD - 07/28/2019Formatt ing of this note might be different from the original. Procedure: Transthoracic Echocardiogram Patient: NATALYA MCBRIDE(Age): [birth year]74y) Med Rec#: [id number] Sex: M Site Loc: [facility] Ht / Wt: 172(cm)/81(kg) Pt. Loc: Echo Lab BSA: 1.94 Study Date: 07/28/2019 Pt. Type: Outpati ent Tape: Referring: MARY ELLEN Reading: Ifeanyi Truong ([id number]) Vp Strategic Partnerships: Fadumo Flanagan [facility] Diagnosis: *Chronic systolic (congestive) heart fa [...] MV E-wave Vmax 1 m/sec MV deceleration esoi792.5 msec MV A-wave Vmax 1 m/sec MV [...] 0.7 ratio Pulmonic Valve/Qp:Qs Value Units (Range) UT end-diastolic Vma1.1 m/sec Wall Motion: Segment Name Rest Base-Anteroseptal Normal Base-Anterior Normal Base-Anterolateral Normal Base-Posterolateral Normal Base-Inferior Akinetic Base-Inferoseptal Normal Mid-Anteroseptal Normal Mid-Anterior Hypokinetic Mid-Anterolateral Normal Mid-Posterolateral Normal Mid-Inferior Hypokinetic Mid-Inferoseptal Normal [place]-Septal Normal [place]-Anterior Hypokinetic [place]-Lateral Normal [place]-Inferior Akinetic [place]-Tip Hypokinetic This report has been electronically sign ed by: _ Ifeanyi Truong M.D. 07/28/2019 08:38:0 1 Images reviewed and interpretation elvie hwang [facility] Cardiac Ultrasound Laboratory Danette [...] documented in this encounter Care Teams Customer Marketing Manager Relationship Specialty Start Date End Date Lovely Vicente MD PCP - General 04/16/[address] [place] [address] documented as of this encounter
--- OUTSIDE RECORDS SUMMARY | 2022-04-17 08:21 | XMS_ITS | Encounter Summary ---
:1945 Author Organization [facility] [place] [address] Care Team Providers Name Role Phone Lovely Vicente MD Primary Care Provider Encounter Details Date Type Department Care Team Description 10/05/2017 Telephone Cardiology [place] [facility] [place]iko Sin MD [facility] [place] [address] CARDIOLOGY DEPT [phone] [place], [place] [address] (Wo rk) Social History [...] [facility] er [address] [place] [address] (Wo rk) 05/28/2022 Laboratory Appointment Lab 05/28/2022 Office Visit Cardiology Zulma Dolan MD [facility] [place] [address] Liz Poole PA [facility] [place] [address] 06/10/2022 Office Visit Dermatology Laura Scherer MD [facility] ER DR TEJA GR-DERMAT [place], [place] [address] (Wo rk) documented as of this encounter Visit Diagnoses Not on filedocumented in this encounter Care Teams Air Route Controller Relationship Specialty Start Date End Date Loveyl Vicente MD PCP - General 04/16/[address] [place] [address] documented as of this encounter
--- OUTSIDE RECORDS SUMMARY | 2022-04-17 08:21 | XMS_ITS | Encounter Summary ---
:1945 Author Organization [facility] [place] [address] Care Team Providers Name Role Phone Lovely Vicente MD Primary Care Provider Reason for Visit Reason Comments Establish Care Atrial Fibrillation Congestive Heart Failure Cardiomyopathy Encounter Details Date Type Department Care Team Description 09/06/2019 [facility] Ischemic [facility] Osvaldo STRANGE [address] [facility] [address] [place], [place] CARDIOLOGY DEPT. [address] [place] [address] [phone] Social History Tobacco Use Types Packs/Day Years [...] today For any questions, call my office: [phone] To access your health care information, go to the web at: [email or web address] (you will need to register) For educational materials: [email or web address] Karel TRAMMELL.[facility], Clinical Cardiac Electrophysiology, [facility], [facility] A Healthy Heart: After Your Visit [...] least 2 servings of fish a week. [place], mackerel, mcfadden, sardines, and chunk light tuna [...] irregular heartbeat. After you call 911, the casting wheel operator helper may tell you to chew 1 adult-strength [...] more? Visit our health information library at [email or web address]. You can also view health information on [employer], your personal patient account. Log in or sign up today. Enter F075 in the search box to learn more about A Healthy Heart: After Your Visit. ?? [phone] [employer]. documented in this encounter Progress Notes Karel Mcelroy MD - 09/06/2019 2:20 PM EST Images from the original note were not included. Section of Cardiology/Cardiac Electrophysiology [facility] Clinical Cardiac Electrophysiology Consult Patient ID Don Fatima 1945 [id number] Don Fatima is referred to the EP clinic by Danette Maxwell APRN PhD Chief Complaint Dyspnea on exertion Ischemic cardiomyopathy History This is a 74 y.o. male following up/being seen in clinic for evaluation for ongoing anticoagulation. He has a Wkcbt1Idvg score of ~ 6-7. 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, can walk [...] EP clinic KAREL MCELROY MD Cardiac Electrophysiology [facility] T: [phone] F: [phone] 35 minutes of this 40 minute encounter were spent in counselling, as described above Cc: MD Danette Cr APRN PhD Janett Espino DPM documented in this encounter Plan of Treatment Upcoming Encounters Date Type Specialty Care Team Description 05/28/2022 Appointment Cardiology Zulma Dolan MD [facility] [place], [place] [address] (Wo rk) 05/28/2022 Laboratory Appointment Lab 05/28/2022 Office Visit Cardiology Zulma Dolan MD [facility] [place] [address] Liz Poole PA [facility] [place] [address] 06/10/2022 Office Visit Dermatology Laura Scherer MD [facility] DR [address]-DERMAT OGY [place], [place] [address] (Wo rk) documented as [...] 446 ms MUSE SYSTEM (Bezet) Calculated P [place] 37 degrees MUSE SYSTEM Calculated R [place] -23 degrees MUSE SYSTEM Calculated T [place] 116 degrees MUSE SYSTEM INTERPRETATION Normal sinus rhythm MUSE SYSTEM Inferior infarct (cited on or before 25-JAN-2013) ST & T wave abnormality, consider anterolateral ischemia Abnormal ECG When compared with ECG of 19-AUG-2017 10:23, No significant change was found Confirmed by MD Cande, Michael ([id number]) on 09/08/2019 10:22:4 7 AM Specimen Anatomical [...] disease documented in this encounter Care Teams Deicer Repairer Electric Relationship Specialty Start Date End Date Lovely Vicente MD PCP - General 04/16/[address] [place] [address] documented as of this encounter
--- OUTSIDE RECORDS SUMMARY | 2022-04-17 08:21 | XMS_ITS | Encounter Summary ---
:1945 Author Organization [facility] Address [facility] [place] [address] Care Team Providers Name Role Phone Lovely Vicente MD Primary Care Provider Encounter Details Date Type Department Care Team Description 01/02/2020 Office Visit Dermatology at [facility] keratoses; Abdelrahman HOOPER MD History of melanoma; [address] [facility] History of dysplastic nevus; [place] [address] Multiple benign nevi; [phone] [facility] Seborrheic yossi [place]; RD-DERMATOLGY Skin exam for malignant neoplasm [place], [place] [address] Social History Tobacco Use Types [...] Zulma Dolan MD [facility] Dr [place], [place] [address] (Wo lissa) 05/28/2022 Laboratory Appointment Lab 05/28/2022 Office Visit Cardiology Zulma Dolan MD [facility] [place] [address] Liz Poole PA [facility] [place] [address] 06/10/2022 Office Visit Dermatology Laura Scherer MD [facility] DR TEJA GR-DERMAT OLOGY [place], [place] [address] (Wo lissa) documented as of [...] skin documented in this encounter Care Teams Farmworker Dairy Relationship Specialty Start Date End Date Lovely Vicente MD PCP - General 04/16/15 [facility] [address] [place] [address] documented as of this encounter
--- OUTSIDE RECORDS SUMMARY | 2022-04-17 08:21 | XMS_ITS | Encounter Summary ---
:1945 Author Organization [facility] [place] [address] Care Team Providers Name Role Phone Lovely Vicente MD Primary Care Provider Encounter Details Date Type Department Care Team Description 10/07/2017 Laboratory Appointment Lab 3L [facility] [place] [address] Social History Tobacco Use Types Packs/Day Years [...] [facility] [place], [place] [address] (Wo rk) 05/28/2022 Laboratory Appointment Lab 05/28/2022 Office Visit Cardiology Zulma Dolan MD [facility] [place] [address] Liz Poole PA [facility] [place] [address] 06/10/2022 Office Visit Dermatology Laura Scherer MD [facility] ER DR TEJA GR-DERMAT ENIDReal [facility] [place] Amy (Wo rk) documented as of [...] - 199 [facility] mg/dL [facility] LABORATORY [...] [facility] Estimated GFR >60 >=60 [facility] Comment: The reported eGFR should be multiplied b y 1.2 for patients. The MDRD is not an appropriate measure o f renal function for patients with body mass extremes or in patients with acute kidney failure. http://LeddarTech.Cortexa/DHnkdep http://LeddarTech.Cortexa/DHMCnkf Specimen Anatomical Collection Method Collection Time Receive d Time (Source) Location / / Volume Laterality Blood specimen 10/07/2017 8:48 AM 018 8:50 (specimen) EDT AM EDT Resulting Agency Comment Spec In Lab Danette Maxwell ASPHALT PAVER OPERATOR CHEMISTRY ORDERABLES Performing Organization Address City/[facility]/ZIP Code Phon e Number [address] (ABNORMAL) pro-Brain Natriuretic Peptide (10/07/2017 8:48 AM EDT) athologist Signature ProBNP 1,170 (H) <=125 [facility] pg/mL [facility]OR[facility] Specimen Anatomical Collection Method Collection Time Receive d Time (Source) Location / / Volume Laterality Blood specimen 10/07/2017 8:48 AM 018 8:50 (specimen) EDT AM EDT Resulting Agency Comment Spec In Lab Danette A Hans QUINONES CHEMISTRY ORDERABLES Performing Organization Address City/State/[place] [address] documented in this encounter Visit Diagnoses Diagnosis Chronic systolic heart failure documented in this encounter Care Teams Consulting Psychiatrist Relationship Specialty Start Date End Date Lovely Vicente MD PCP - General 04/16/[address] [place] [address] documented as of this encounter
--- OUTSIDE RECORDS SUMMARY | 2022-04-17 08:21 | XMS_ITS | Encounter Summary ---
:1945 Author Organization [facility] [place] [address] Care Team Providers Name Role Phone Lovely Vicente MD Primary Care Provider Reason for Visit Reason Comments Follow-up Skin Check Encounter Details Date Type Department Care Team Description 01/06/2018 Office Visit Dermatology at [facility] nevi; Abdelrahman HOOPER MD History of melanoma; [address] [facility] [place] [address] [facility] [place], [place] [address] Social History Tobacco Use Types [...] and in the presence of Dr. Garcia.: ARAINA MORRISON LPN I, Hudson CastilloNaseem, have performed the documentation for this encounter in the presence of and acting as a scribe for RIGOBERTO GARCIA III, MD. I performed the above scribed service and agree with the accuracy of the documentation in this encounter. Rigoberto Garcia MD Section of Dermatology [facility] documented in this encounter Plan of Treatment Upcoming Encounters Date Type Specialty Care Team Description 05/28/2022 Appointment Cardiology Zulma Dolan MD [facility] [address] [place], [place] [address] (Wo rk) 05/28/2022 Laboratory Appointment Lab 05/28/2022 Office Visit Cardiology Zulma Dolan MD [facility] [place] [address] Liz Poole PA [facility] [place] [address] 06/10/2022 Office Visit Dermatology Laura Scherer MD [facility] DR TE[address] GR-DERMAT [place], [place] [address] (Wo rk) documented as of this encounter Visit Diagnoses Diagnosis Multiple nevi Benign neoplasm of skin, site unspecifie d History of melanoma Personal history of malignant melanoma o f skin Seborrheic keratosis Other seborrheic keratosis documented in this encounter Care Teams Vp Site Relationship Specialty Start Date End Date Lovely Vicente MD PCP - General 04/16/[address] [place] [address] documented as of this encounter
--- OUTSIDE RECORDS SUMMARY | 2022-04-17 08:21 | XMS_ITS | Encounter Summary ---
:1945 Author Organization [facility] [place] [address] Care Team Providers Name Role Phone Lovely Vicente MD Primary Care Provider Encounter Details Date Type Department Care Team Description 09/16/2017 [place] [address] Social History Tobacco Use Types Packs/Day [...] Description 05/28/2022 Appointment Cardiology Zumla Dolan MD [facility] [place], [place] [address] (Wo rk) 05/28/2022 Laboratory Appointment Lab 05/28/2022 Office Visit Cardiology Zulma Dolan MD [facility] [place] [place] [address] Liz Poole PA [facility] [place] [address] 06/10/2022 Office Visit Dermatology Laura Scherer MD [facility] [address] [place], [place] [address] (Wo rk) documented as of this encounter Procedures Procedure Name Priority Date/Time Associated Diagnosis Comme [facility] SURGICAL PATHOLOGY Routine 09/16/2017 7:28 AM Res ults for this REPORT EST procedure are i n the results section. documented in this encounter Results Surgical Pathology Report (09/16/2017 7:28 AM EST) Component Value Ref Test Analysis Performed At [facility] Method Time Signature Surgical [id number] ? Location: [facility] Pathology LANGLEY Report The signing pathologist has (i) examined [...] ??09/24/2017 ?Pathologist Performed at: ??-[facility] [place], [place], [place] CLINICAL INFORMATION Specimen Submitted: A - [...] Organization Address City/State/ZIP [place] [address] documented in this encounter Visit Diagnoses Not on filedocumented in this encounter Care Teams Bus Analyst Relationship Specialty Start Date End Date Lovely Vicente MD PCP - General 04/16/[address] [place] [address] documented as of this encounter
--- OUTSIDE RECORDS SUMMARY | 2022-04-17 08:21 | XMS_ITS | Encounter Summary ---
:1945 Author Organization [facility] [place] [address] Care Team Providers Name Role Phone Lovely Vicente MD Primary Care Provider Reason for Referral Diagnostic Test (Routine) - Closed Specialty Diagnoses / Procedures Referred By Contact Refer red To Contact Cardiology Diagnoses Ischemic cardiomyopathy Acute on chronic systolic congestive heart failure Danette Maxwell APRN [facility] Non-Inv Card Lab Procedures Echocardiogram Transthoracic(Leb) [facility] [place] [address] [place] [address] Referral ID Status Reason Start Date Expiration Date Visits V isits Requested Authorized [id number] Closed Specialty 08/30/2017 08/30/2018 1 1 Service Requested Reason for Visit Diagnostic Test (Routine) - Closed Specialty Diagnoses / Procedures Referred By Contact Refer red To Contact Cardiology Diagnoses Ischemic cardiomyopathy Acute on chronic systolic congestive heart failure Danette Maxwell APRN [facility] Non-Inv Card Lab Procedures Echocardiogram Transthoracic(Leb) [facility] [place] [address] [place] [address] Referral ID Status Reason Start Date Expiration Date Visits V isits Requested Authorized [id number] Closed Specialty 08/30/2017 08/30/2018 1 1 Service Requested Encounter Details Date Type Department Care Team Description 10/07/2017 Hospital Encounter Non-Invasive Ischemic cardiomyopathy; Cardiology Lab Barbara Craig on chronic systolic [place] [address] Social History Tobacco Use Types Packs/Day [...] 05/28/2022 Appointment Cardiology Zulma Dolan MD [facility] [address] [place], [place] [address] (Wo rk) 05/28/2022 Laboratory Appointment Lab 05/28/2022 Office Visit Cardiology Zulma Dolan MD [facility] [place] [address] Liz Poole PA [facility] [place] [address] 06/10/2022 Office Visit Dermatology Laura Scherer MD [facility] [address] [place], [place] [address] (Wo rk) documented as [...] Mccollum ? (Age): 1945(72y) Med Rec#: ? [id number] ?Sex: ?M ? [place] [facility] [place]Ht / Wt: ??173(cm)/82(kg) Pt. Loc: ?Echo Lab ?BSA: ?1.96 Study Date: ?? 10/07/2017 ?Pt. Type: Outpatient Tape: ? Referring: Danette Maxwell Reading: Iker Cuevas ([id number]) Flame Hardener: Yonathan Bocanegra Diagnosis: *ICD-10-PCS Ischemic cardiomyopathy (I2 [...] E-wave Vmax ?1.2 ?m/sec ? MV deceleration flaw720 ?msec ? MV A-wave Vmax ?1 ?m/sec [...] Mid-Inferior ?Hypokinetic ? Mid-Inferoseptal ?Hypokinetic ? [place] Hero-Septal ? Akinetic ? [place] Hero-Anterior ? Hypokinetic ? [place] Hero-Lateral ?Hypokinetic ? [place] Hero-Inferior ? Hypokinetic ? [place] Hero-Tip ?Akinetic ? This report has been electronically sign ed by: _ Iker Cuevas M.D. ? 10/07/2017 11:12:34 Images reviewed and interpretation verif ied [facility] Cardiac Ultrasound Laboratory Procedure Note Iker Cuevas MD - 10/07/2017Formatti ng of this note might be different from the original. Procedure: Transthoracic Echocardiogram Patient: NATALYA MCBRIDE(Age): [birth year]72y) Med Rec#: [id number] Sex: M Site Loc: [facility] Ht / Wt: 173(cm)/82(kg) Pt. Loc: Echo Lab BSA: 1.96 Study Date: 10/07/2017 Pt. Type: Outpati ent Tape: Referring: Danette Maxwell Reading: Iker Cuevas ([id number]) Flame Hardener: Yonathan Bocanegra Diagnosis: *ICD-10-PCS Ischemic cardiomyopathy (I2 [...] MV E-wave Vmax 1.2 m/sec MV deceleration dnon727 msec MV A-wave Vmax 1 m/sec MV [...] Mid-Posterolateral Hypokinetic Mid-Inferior Hypokinetic Mid-Inferoseptal Hypokinetic North Hero-Septal Akinetic North Hero-Anterior Hypokinetic North Hero-Lateral Hypokinetic North Hero-Inferior Hypokinetic [place] Hero-Tip Akinetic This report has been electronically sign ed by: _ Iker Cuevas M.D. 10/07/2017 11:12 :34 Images reviewed and interpretation elvie hwang [facility] Cardiac Ultrasound Laboratory Danette [...] Routine documented in this encounter Care Teams Screen Printing Supervisor Relationship Specialty Start Date End Date Lovely Vicente MD PCP - General 04/16/[address] [place] [address] documented as of this encounter
--- OUTSIDE RECORDS SUMMARY | 2022-04-17 08:21 | XMS_ITS | Encounter Summary ---
:1945 Author Organization [facility] [place] [address] Care Team Providers Name Role Phone Lovely Vicetne MD Primary Care Provider Encounter Details Date Type Department Care Team Description 11/29/2017 Hospital Encounter Vascular Lab at Janett Walter P[facility] (peripheral [facility], RVT artery [facility]) [place] [address] Social History Tobacco Use Types Packs/Day Years [...] Dolan MD [facility] [place], [place] [address] (Wo rk) 05/28/2022 Laboratory Appointment Lab 05/28/2022 Office Visit Cardiology Zulma Dolan MD [facility] [place] [id number] Liz Poole PA [facility] [place] [address] 06/10/2022 Office Visit Dermatology Laura Scherer MD [facility] DR [address] [place], [place] [address] (Wo rk) documented as of [...] Test Analysis Performed At [facility] Range Method Time Signature VB Text Department: Vascular Surgery Lab VASCUBASE Report Patient: [id number] (DON HOANG) CPT: 61281 ICD10: I72.4;I73.9 Referring Physician: DANETTE MAXWELL ?? [...] unspecified documented in this encounter Care Teams Linseed Oil Order Filler Relationship Specialty Start Date End Date Lovely Vicente MD PCP - General 04/16/[address] [place], [place] [address]Y [facility] [address] [place] [address] documented as of this encounter
--- OUTSIDE RECORDS SUMMARY | 2022-04-17 08:21 | XMS_ITS | Encounter Summary ---
:1945 [place] [address] Care Team Providers Name Role Phone Lovely Vicente MD Primary Care Provider Encounter Details Date Type Department Care Team Description 11/29/2017 Hospital Encounter Radiology Library at Estefany Maxwell Pain [facility] GYM INSTRUCTOR [facility] [place] [address] CARDIOLOGY [phone] [place], [place] [address] (Wo rk) Social History Tobacco [...] Zulma Dolan MD [facility] [place], [place] [address] (Wo rk) 05/28/2022 Laboratory Appointment Lab 05/28/2022 Office Visit Cardiology Zulma Dolan MD [facility] [place] [address] Liz Poole PA [facility] [place] [address] 06/10/2022 Office Visit Dermatology Laura Scherer MD [facility] DR [address] [place]LOG[place], [place] [address] (Wo rk) documented as of [...] Organization Address City/State/ZIP Code Phon e Number [place], [place] documented in this encounter Visit Diagnoses Diagnosis Pain Generalized pain documented in this encounter Care Teams Nursing Teacher Relationship Specialty Start Date End Date Lovely Vicente MD PCP - General 04/16/[address] [place] [address] documented as of this encounter
--- OUTSIDE RECORDS SUMMARY | 2022-04-17 08:21 | XMS_ITS | Encounter Summary ---
:1945 Author Organization [place] [address] Care Team Providers Name Role Phone Lovely Vicente MD Primary Care Provider Encounter Details Date Type Department Care Team Description 08/15/2018 Laboratory Lab 3L [place] Chronic systoli c heart failure; Appointment [facility] ASCVD (ar teriosclerotic cardiovascular disease) [place] [address] Social History Tobacco Use Types [...] MD [facility] [place] [address] [place], [place] [address] (Wo rk) 05/28/2022 Laboratory Appointment Lab 05/28/2022 Office Visit Cardiology Zulma Dolan MD [facility] [place] [address] Liz Poole PA [facility] [place] [address] 06/10/2022 Office Visit Dermatology Laura Scherer MD [facility] [address] [place], [place] [address] (Wo rk) documented as of [...] Glucose Lvl 116 65 - 199 [facility] mg/dL [facility] [...] of body mass or the acutely ill. [email or web address] [email or web address] eGFR 79 >=60 mL/min/1.73 m?? [facility] Comment: The eGFR was calculated using the CKD-EP I equation. As with all creatinine based estimates of kidney function, eGFR values calculated with the CKD-EPI equation are not accurate in patients wi th acute kidney failure, extremes of body mass or the acutely ill. [email or web address] [email or web address] Specimen Anatomical Collection Method Collection Time Receive d Time (Source) Location / / Volume Laterality Blood specimen 08/15/2018 8:04 AM 019 8:20 (specimen) EST AM EST Resulting Agency Comment Spec In Lab Danette Maxwell APRN CHEMISTRY ORDERABLES Performing Organization Address City/State/[place] [address] Lipid Panel (08/15/2018 8:04 AM EST) P athologist Signature Chol, Total 75 mg/dL [facility] Comment: Lower Risk: <200 mg/dL Average Risk: 200-239 mg/dL Higher Risk: >ex=235 mg/dL Triglycerides 185 mg/dL [facility] Comment: Average Risk/Lower Risk: <150 mg/dL Borderline High Risk: 150-199 mg/dL High Risk: 200-499 mg/dL Very High Risk: >dy=277 mg/dL HDL 32 mg/dL [facility] Comment: Males: ?? Higher Risk: <40 mg/dL Females: ?? HIgher Risk: <50 mg/dL LDL Cholesterol 6 mg/dL [facility] Comment: Lowest Risk: <100 mg/dL Lower Risk: 100-129 mg/dL Borderline High Risk: 130-159 mg/dL High Risk: 160-189 mg/dL Very High Risk: >pz=186 mg/dL Chol/HDL Ratio 2.3 ratio [facility] Lipid Interpretation See Note [facility] Comment: Lipid management should be guided by a p atient? s ASCVD risk, goals and preferences. ACC/AHA Guidelines recommend high intens ity statin if clinical ASCVD or LDL greater than or equal to 190 mg/dL. http://[employer].com/XQH-WXT-Kqxtvognh Adults aged 40-75 with LDL 70-189 mg/dL should have their 10 year ASCVD risk estimated with the ACC/AHA ASCVD risk es timator http://tools.acc.org/WXYBO-Moxv-Twbmmasz r/ Statin should be discussed if risk [...] City/State/[place] [address] (ABNORMAL) pro-Brain Natriuretic Peptide (08/15/2018 8:04 AM EST) athologist Signature ProBNP 1,797 (H) <=125 [facility] pg[facility] Specimen Anatomical Collection Method Collection Time Receive d Time (Source) Location / / Volume Laterality Blood specimen 08/15/2018 8:04 AM 019 8:20 (specimen) EST AM EST Resulting Agency Comment Spec In Lab Danette Maxwell APRN CHEMISTRY ORDERABLES Performing Organization Address City/State/[place] [address] documented in this encounter Visit Diagnoses Diagnosis Chronic systolic heart failure ASCVD (arteriosclerotic cardiovascular d isease) Unspecified cardiovascular disease documented in this encounter Care Teams Parks And Recreation Worker Relationship Specialty Start Date End Date Lovely Vicente MD PCP - General 04/16/[address] [place] [address] documented as of this encounter
--- OUTSIDE RECORDS SUMMARY | 2022-04-17 08:21 | XMS_ITS | Encounter Summary ---
:1945 Author Organization [facility] [place] [address] Care Team Providers Name Role Phone Lovely Vicente MD Primary Care Provider Encounter Details Date Type Department Care Team Description 08/26/2018 Transcribe Orders Laboratory Lovely Vicente, Deferred diagnosis [facility] on axis I [address] [address] [place], [place] [phone] Social History Tobacco Use Types Packs/Day Years [...] Zulma Dolan MD [facility] [address] [place], [place] [address] (Wo rk) 05/28/2022 Laboratory Appointment Lab 05/28/2022 Office Visit Cardiology Zulma Dolan MD [facility] [place] [address] Liz Poole PA [facility] [place] [address] 06/10/2022 Office Visit Dermatology Laura Scherer MD [facility] DR [address] [place], [place] [address] (Wo rk) documented as of this encounter Visit Diagnoses Diagnosis Deferred diagnosis on axis I Other unknown and unspecified cause of m orbidity or mortality documented in this encounter Care Teams End Worker Relationship Specialty Start Date End Date Lovely Vicente MD PCP - General 04/16/15 [facility] [address] [place] [address] documented as of this encounter
--- OUTSIDE RECORDS SUMMARY | 2022-04-17 08:21 | XMS_ITS | Encounter Summary ---
:1945 Author Organization [facility] Address [facility] [place] [address] Care Team Providers Name Role Phone Lovely Vicente MD Primary Care Provider Reason for Referral Diagnostic Test (Routine) - Specialty Diagnoses / Procedures Referred By Contact Refer red To Contact Cardiology Diagnoses Chronic systolic heart failure Danette Maxwell APRN [facility] Non-Inv Card Lab Procedures Echocardiogram Transthoracic(Leb) [facility] [place] [address] [place] [address] Referral ID Status Reason Start Date Expiration Visits Visits Date Requested Authorized [id number] Specialty 08/15/2018 08/15/2018 1 1 Service Requested Encounter Details Date Type Department Care Team Description 04/18/2018 Office Visit Cardiology [place] [facility] Danette Maxwell Chronic systolic heart failu re; [facility] STACIE Gomes On amiodarone therapy; [facility] Ischemic cardiomyopathy; [place], [place] DR ONOFRE (arteriosclerotic cardiovascular d isease) [phone] CARDIOLOGY [phone] [place], [place] [address] Social History Tobacco Use Types Packs/Day Years [...] in this encounter Progress Notes Danette Maxwell, BAND SAWMILL OPERATOR - 04/18/2018 10:40 AM EDT ID [...] 10/25/2017: right popliteal-pedal bypass at [facility] ? Plan: 1. A review of [...] Dolan MD [facility] [address], [place] [address] (Wo rk) 05/28/2022 Laboratory Appointment Lab 05/28/2022 Office Visit Cardiology Zulma Dolan MD [facility] [place] [address] Liz Poole PA [facility] [place] [address] 06/10/2022 Office Visit Dermatology Laura Scherer MD [facility] DR [address] [place], [place] [address] (Wo rk) documented as [...] Mccollum ? (Age): 1945(73y) Med Rec#: ? [id number] ?Sex: ?M ? [place] ? [facility] ?Ht / Wt: ??172(cm)/81(kg) Pt. Loc: ?Echo Lab ?BSA: ?1.94 Study Date: ?? 08/15/2018 ?Pt. Type: Outpatient Tape: ? Referring: MARY ELLEN Reading: Scott Ortega ([id number]) Interpretive Naturalist: Laura Sargent Diagnosis: *Chronic systolic (congestive) heart [...] E-wave Vmax ?1.2 ?m/sec ? MV deceleration oiwc302.4 ? msec ? MV A-wave Vmax ?0.7 [...] ? Mid-Inferior ?Hypokinetic ? Mid-Inferoseptal ?Hypokinetic ? Art-Septal ? Akinetic ? Art-Anterior ? Hypokinetic ? Art-Lateral ?Akinetic ? Art-Inferior ? Hypokinetic ? Art-Tip ?Akinetic ? This report has been electronically sign ed by: _ Scott Ortega M.D. ? 08/15/2018 08:17:26 Images reviewed and interpretation verif ied [facility] Cardiac Ultrasound Laboratory Procedure Note Scott Ortega MD - 08/15/2018Format ting of this note might be different from the original. Procedure: Transthoracic Echocardiogram Patient: NATALYA MCBRIDE(Age): [birth year]73y) Med Rec#: [id number] Sex: M [place] [facility] Ht / Wt: 172(cm)/81(kg) Pt. Loc: Echo Lab BSA: 1.94 Study Date: 08/15/2018 Pt. Type: Outpati ent Tape: Referring: MARY ELLEN Reading: Scott Ortega ([id number]) Interpretive Naturalist: Laura Sargent Diagnosis: *Chronic systolic (congestive) heart [...] MV E-wave Vmax 1.2 m/sec MV deceleration vkzh011.4 msec MV A-wave Vmax 0.7 m/sec MV [...] Akinetic Mid-Posterolateral Akinetic Mid-Inferior Hypokinetic Mid-Inferoseptal Hypokinetic Art-Septal Akinetic Art-Anterior Hypokinetic Art-Lateral Akinetic Art-Inferior Hypokinetic Art-Tip Akinetic This report has been electronically sign ed by: _ Scott Ortega M.D. 08/15/2018 08:17: 26 Images reviewed and interpretation verif ied [facility] Cardiac Ultrasound Laboratory Danette Maxwell APRN ECHO ORDERABLES (ABNORMAL) Basic Metabolic Panel (non-fasting) (04/18/2018 9:19 AM EDT) P athologist Signature Glucose Lvl 167 65 - 199 [facility] mg/dL [facility] Comment: [...] mmol/L [facility] Anion Gap 23 (H) 5 - 15 mmol/L [facility] Calcium 9.3 8.5 - 10.5 mg/dL [facility] Estimated GFR 61 >=60 mL/min/1.73 m?? [facility] Comment: The eGFR was calculated using the CKD-EP I equation. As with all creatinine based estimates of kidney function, eGFR values calculated with the CKD-EPI equation are not accurate in patients wi th acute kidney failure, extremes of body mass or the acutely ill. [email or web address] eGFR 70 >=60 mL/min/1.73 m?? [facility] Comment: The eGFR was calculated using the CKD-EP I equation. As with all creatinine based estimates of kidney function, eGFR values calculated with the CKD-EPI equation are not accurate in patients wi th acute kidney failure, extremes of body mass or the acutely ill. [email or web address] Specimen Anatomical Collection Method Collection Time Receive d Time (Source) Location / / Volume Laterality Blood specimen 04/18/2018 9:19 AM 018 9:34 (specimen) EDT AM EDT Resulting Agency Comment Spec In Lab Danette Maxwell APRN CHEMISTRY ORDERABLES Performing Organization Address City/State/[place] [address] (ABNORMAL) pro-Brain Natriuretic Peptide (04/18/2018 9:19 AM EDT) P athologist Signature ProBNP 2,199 (H) <=125 [facility] pg/mL [facility] Specimen Anatomical Collection Method Collection Time Receive d Time (Source) Location / / Volume Laterality Blood specimen 04/18/2018 9:19 AM 018 9:34 (specimen) EDT AM EDT Resulting Agency Comment Spec In Lab Danette Maxwell APRN CHEMISTRY ORDERABLES Performing Organization Address City/State/[place] [address] documented in this encounter Visit Diagnoses Diagnosis Chronic systolic heart failure On amiodarone therapy Ischemic cardiomyopathy Other specified forms of chronic ischemi c heart disease ASCVD (arteriosclerotic cardiovascular d isease) Unspecified cardiovascular disease Chronic systolic heart failure documented in this encounter Care Teams Civil Engineering Project Designer Relationship Specialty Start Date End Date Lovely Vicente MD PCP - General 04/16/[address] [place] [address] documented as of this encounter
--- OUTSIDE RECORDS SUMMARY | 2022-04-17 08:21 | XMS_ITS | Encounter Summary ---
:1945 Author Organization [place] [address] Care Team Providers Name Role Phone Lovely Vicente MD Primary Care Provider Encounter Details Date Type Department Care Team Description 04/18/2018 Laboratory Appointment Lab 3L [facility] [place] [phone] Social History Tobacco Use Types Packs/Day Years [...] MD [facility] er [place], [place] [address] (Wo rk) 05/28/2022 Laboratory Appointment Lab 05/28/2022 Office Visit Cardiology Zulma Dolan [place] [facility] [place] [address] Liz Poole PA [facility] [place] [address] 06/10/2022 Office Visit Dermatology Laura Scherer MD [facility] ER DR TEJA GR-DERMAT [place], [place] [address] (Wo rk) documented as of [...] Signature Total Protein 7.6 6.1 - 8.0 [facility] RYAN gm/dL [facility] Albumin 4.0 3.2 - 5.2 [facility] R[facility] gm/dL [facility] AST 36 0 - 39 [facility] unit/L [facility] ALT 27 0 - 55 [facility] RYAN unit/L [facility] Alk Phos 96 40 - 120 [facility] R[facility] unit/L [facility] Total 0.7 0.2 - 1.3 [facility] [place] K.K. Bilirubin mg/dL [facility] Bili, Direct 0.1 0.0 - 0.3 [facility] RYAN mg/dL [facility] Specimen Anatomical Collection Method Collection Time Receive d Time (Source) Location / / Volume Laterality Blood specimen Venous Draw / 04/18/2018 9:19 AM 2017 9:44 (specimen) Unknown EDT AM EDT Resulting Agency Comment Spec In Lab Danette Maxwell APRN CHEMISTRY ORDERABLES Performing Organization Address City/State/[place] [address] TSH (04/18/2018 9:19 AM EDT) athologist Signature TSH 1.77 0.27 - 4.20 [facility] mlU/ML [facility] Specimen Anatomical Collection Method Collection Time Receive d Time (Source) Location / / Volume Laterality Blood specimen Venous Draw / 04/18/2018 9:19 AM 2017 9:44 (specimen) Unknown EDT AM EDT Resulting Agency Comment Spec In Lab Danette Maxwell APRN CHEMISTRY ORDERABLES Performing Organization Address City/State/[place] [address] (ABNORMAL) Basic Metabolic Panel (non-fasting) (04/18/2018 9:19 AM EDT) athologist Signature Glucose Lvl 167 65 - 199 [facility] mg/dL [facility] Comment: Diabetes: >=200 mg/dL plus symp toms BUN 18 10 - 20 mg/dL [facility] Creatinine 1.19 0.80 - 1.50 mg/dL [facility] Sodium 147 (H) 135 [...] of body mass or the acutely ill. http://Root4/DHMCnkf eGFR 70 >=60 mL/min/1.73 m?? [facility] Comment: The eGFR was calculated using the CKD-EP I equation. As with all creatinine based estimates of kidney function, eGFR values calculated with the CKD-EPI equation are not accurate in patients wi th acute kidney failure, extremes of body mass or the acutely ill. http://Root4/DHnkf Specimen Anatomical Collection Method Collection Time Receive d Time (Source) Location / / Volume Laterality Blood specimen 04/18/2018 9:19 AM 018 9:34 (specimen) EDT AM EDT Resulting Agency Comment Spec In Lab Danette Maxwell APRN CHEMISTRY ORDERABLES Performing Organization Address City/[facility]/[place] [address] (ABNORMAL) pro-Brain Natriuretic Peptide (04/18/2018 9:19 AM EDT) P athologist Signature ProBNP 2,199 (H) <=125 [facility] pg[facility]mL [facility] Specimen Anatomical Collection Method Collection Time Receive d Time (Source) Location / / Volume Laterality Blood specimen 04/18/2018 9:19 AM 018 9:34 (specimen) EDT AM EDT Resulting Agency Comment Spec In Lab Danette Maxwell APRN CHEMISTRY ORDERABLES Performing Organization Address City/[facility]/[place] [address] documented in this encounter Visit Diagnoses Diagnosis Chronic systolic heart failure documented in this encounter Care Teams Heel Caser Relationship Specialty Start Date End Date Lovely Vicente MD PCP - General 04/16/[address] [place] [address] documented as of this encounter
--- OUTSIDE RECORDS SUMMARY | 2022-04-17 08:21 | XMS_ITS | Encounter Summary ---
:1945 Author Organization [facility] [place] [address] Care Team Providers Name Role Phone Lovely Vicente MD Primary Care Provider Reason for Visit Reason Onset Date Comments Follow-up 07/13/2018 amiodarone discontin ued Encounter Details Date Type Department Care Team Description 07/13/2018 Telephone Cardiology at [facility] Martha Comer, Follow-up (amiodarone [facility] RN discontin ued) [place] [address] Social History Tobacco Use Types Packs/Day [...] RN - 07/13/2018 8:57 AM EST Per PASSENGER LOCOMOTIVE ENGINEER Hans call placed to the home [...] with any questions. Call placed to the [facility] pharmacy in [place] to discontinue it there as well. Med list updated. documented in this encounter Plan of Treatment Upcoming Encounters Date Type Specialty Care Team Description 05/28/2022 Appointment Cardiology Zulma Dolan MD [facility] [address] [place], [place] [address] (Wo rk) 05/28/2022 Laboratory Appointment Lab 05/28/2022 Office Visit Cardiology Zulma Dolan MD [facility] [place] [address] Liz Poole PA [facility] [place] [address] 06/10/2022 Office Visit Dermatology Laura Scherer MD [facility] DR [address] [place], [place] [address] (Wo rk) documented as of this encounter Visit Diagnoses Not on filedocumented in this encounter Care Teams Blasting Contract Man Relationship Specialty Start Date End Date Lovely Vicente MD PCP - General 04/16/[address] [place] [address] documented as of this encounter
--- OUTSIDE RECORDS SUMMARY | 2022-04-17 08:21 | XMS_ITS | Encounter Summary ---
:1945 Author Organization [facility] [place] [address] Care Team Providers Name Role Phone Lovely Vicente MD Primary Care Provider Encounter Details Date Type Department Care Team Description 11/29/2017 Laboratory Lab 3L Barbara Chronic systoli c congestive heart failure; Appointment [facility] ASCVD (ar teriosclerotic cardiovascular disease); Hospital Cardiomyopathy, [place] [address] Social History Tobacco Use Types [...] Dolan MD [facility] er Dr [place], [place] [address] (Wo rk) 05/28/2022 Laboratory Appointment Lab 05/28/2022 Office Visit Cardiology Zulma Dolan MD [facility] [place] [address] [facility] [place] [address] 06/10/2022 Office Visit Dermatology Laura Scherer MD [facility] ER DR [address] [place], [place] [address] (Wo rk) documented as [...] Signature PT 23.0 (H) 9.4 - 12.5 [facility] LABORATORY INR 2.1 [facility] [...] Organization Address City/State/[place] [address] (ABNORMAL) Basic Metabolic Panel (non-fasting) (11/29/2017 8:22 AM EDT) P athologist Signature Glucose Lvl 217 (H) 65 - 199 [facility] mg/dL [facility] LABOR[facility]ORY [...] or in patients with acute kidney failure. http://MoneyDesktop.Magpower/DHnkdep http://American BioCare/DHMCnkf Specimen Anatomical Collection Method Collection Time Receive d Time (Source) Location / / Volume Laterality Blood specimen 11/29/2017 8:22 AM 018 8:29 (specimen) EDT AM EDT Resulting Agency Comment Spec In Lab Danette Maxwell APRN CHEMISTRY ORDERABLES Performing Organization Address City/State/ZIP [place] [address] (ABNORMAL) pro-Brain Natriuretic Peptide (11/29/2017 8:22 AM EDT) P athologist Signature ProBNP 1,769 (H) <=125 [facility] pg/mL [facility] Specimen Anatomical Collection Method Collection Time Receive d Time (Source) Location / / Volume Laterality Blood specimen 11/29/2017 8:22 AM 018 8:29 (specimen) EDT AM EDT Resulting Agency Comment Spec In Lab Danette Maxwell APRN CHEMISTRY ORDERABLES Performing Organization Address City/State/ZIP Code Phon e Number [address] Lavender Tube HOLD (11/29/2017 8:14 AM EDT) Patholo gist Method Time Signature Lavender Hold Sample in [facility] lab. [facility] Specimen Anatomical Collection Method Collection Time Receive d Time (Source) Location / / Volume Laterality Blood specimen No Charge / 11/29/2017 8:14 AM 018 8:29 (specimen) Unknown EDT AM EDT Lovely Vicente MD HEMATOLOGY ORDERABLES Performing Organization Address City/State/ZIP [place] [address] documented in this encounter Visit Diagnoses Diagnosis Chronic systolic congestive heart failur e Chronic systolic heart failure ASCVD (arteriosclerotic cardiovascular d isease) Unspecified cardiovascular disease Cardiomyopathy, ischemic Other specified forms of chronic ischemi c heart disease documented in this encounter Care Teams Veterinary Nurse Relationship Specialty Start Date End Date Lovely Vicente MD PCP - General 04/16/[address] [place] [address] documented as of this encounter
--- OUTSIDE RECORDS SUMMARY | 2022-04-17 08:21 | XMS_ITS | Encounter Summary ---
:1945 Author Organization [facility] [place] [address] Care Team Providers Name Role Phone Lovely Vicente MD Primary Care Provider Encounter Details Date Type Department Care Team Description 03/20/2021 Ancillary Procedure Radiology Library [place] [address] [place] [address] [phone] Social History Tobacco Use Types Packs/Day Years [...] [facility] [place], [place] [address] (Wo rk) 05/28/2022 Laboratory Appointment Lab 05/28/2022 Office Visit Cardiology Zulma Dolan MD [facility] [place] [address] Liz Poole PA [facility] [place] [address] 06/10/2022 Office Visit Dermatology Laura Scherer MD [facility] ER DR [address] [place], [place] [address] (Wo rk) documented as of [...] Code Phon e Number [place], [place] documented in this encounter Visit Diagnoses Not on filedocumented in this encounter Care Teams Ict Customer Support Officer Relationship Specialty Start Date End Date Lovely Vicente MD PCP - General 04/16/[address] [place] [address] documented as of this encounter
--- OUTSIDE RECORDS SUMMARY | 2022-04-17 08:21 | XMS_ITS | Encounter Summary ---
:1945 Author Organization [facility] [place] [address] Care Team Providers Name Role Phone Lovely Vicente MD Primary Care Provider Encounter Details Date Type Department Care Team Description 01/16/2019 Laboratory Appointment Lab 3L [facility] [place] [phone] Social History Tobacco Use Types Packs/Day Years [...] Zulma Dolan MD [facility] [place], [place] [address] (Wo rk) 05/28/2022 Laboratory Appointment Lab 05/28/2022 Office Visit Cardiology Zulma Dolan MD [facility] [place] [address] Liz Poole PA [facility] [place] [address] 06/10/2022 Office Visit Dermatology Laura Scherer MD [facility] ER DR [address] [place], [place] [address] (Wo [...] Organization Address City/State/[place] [address] (ABNORMAL) Basic Metabolic Panel (non-fasting) (01/16/2019 7:49 AM EDT) athologist Signature Glucose Lvl 105 65 - 199 [facility] mg/dL [facility] Comment: Diabetes: >=200 [...] of body mass or the acutely ill. http://ThirdPresence/Bizweb.vnnkf eGFR 79 >=60 mL/min/1.73 m?? [facility] Comment: The eGFR was calculated using the CKD-EP I equation. As with all creatinine based estimates of kidney function, eGFR values calculated with the CKD-EPI equation are not accurate in patients wi th acute kidney failure, extremes of body mass or the acutely ill. http://ThirdPresence/Bizweb.vnnkf Specimen Anatomical Collection Method Collection Time Receive d Time (Source) Location / / Volume Laterality Blood specimen 01/16/2019 7:49 AM 019 7:55 (specimen) EDT AM EDT Resulting Agency Comment Spec In Lab Danette Maxwell APRN CHEMISTRY ORDERABLES Performing Organization Address City/State/[place] [address] documented in this encounter Visit Diagnoses Diagnosis Chronic systolic heart failure documented in this encounter Care Teams Bag Grader Relationship Specialty Start Date End Date Lovely Vicente MD PCP - General 04/16/[address] [place] [address] documented as of this encounter
--- OUTSIDE RECORDS SUMMARY | 2022-04-17 08:21 | XMS_ITS | Encounter Summary ---
:1945 Author Organization [facility] [place] [address] Care Team Providers Name Role Phone Lovely Vicente MD Primary Care Provider Reason for Referral Diagnostic Test (Routine) - Specialty Diagnoses / Procedures Referred By Contact Refer red To Contact Cardiology Diagnoses Chronic systolic heart failure Danette Maxwell APRN [facility] Non-Inv Card Lab Procedures Echocardiogram Transthoracic(Leb) [facility] [address] [phone] [place] [address] Referral ID Status Reason Start Date Expiration Visits Visits Date Requested Authorized [id number] Specialty 08/15/2018 08/15/2018 1 1 Service Requested Reason for Visit Diagnostic Test (Routine) - Specialty Diagnoses / Procedures Referred By Contact Nawaf owen To Contact Cardiology Diagnoses Chronic systolic heart failure Danette Maxwell APRN [facility] Non-Inv Card Lab Procedures Echocardiogram Transthoracic(Leb) [facility] [place] [address] [place] [address] Referral ID Status Reason Start Date Expiration Visits Visits Date Requested Authorized [id number] Specialty 08/15/2018 08/15/2018 1 1 Service Requested Encounter Details Date Type Department Care Team Description 08/15/2018 Hospital Encounter Non-Invasive Danette Maxwell Chron ic systolic Cardiology Lab Barbara Gomes APRN heart failure [facility] [place] [address] [place] [phone] (Work) [phone] Social History Tobacco Use Types Packs/Day Years [...] Cardiology Zulma Dolan MD [facility] [place], [place] [address] (Wo rk) 05/28/2022 Laboratory Appointment Lab 05/28/2022 Office Visit Cardiology Zulma Dolan MD [facility] [place] [address] Liz Poole PA [facility] [place] [address] 06/10/2022 Office Visit Dermatology Laura Scherer MD [facility] DR [address] [place], [place] [address] (Wo rk) documented as of [...] Mccollum ? (Age): 1945(73y) Med Rec#: ? [id number] ?Sex: ?M ? Site Loc: ? [facility] ?Ht / Wt: ??172(cm)/81(kg) Pt. Loc: ?Echo Lab ?BSA: ?1.94 Study Date: ?? 08/15/2018 ?Pt. Type: Outpatient Tape: ? Referring: MARY ELLEN Reading: Scott Ortega ([id number]) Fur Weigher: Laura Sargent Diagnosis: *Chronic systolic (congestive) heart [...] E-wave Vmax ?1.2 ?m/sec ? MV deceleration esxg887.4 ? msec ? MV A-wave Vmax ?0.7 [...] ? Mid-Inferior ?Hypokinetic ? Mid-Inferoseptal ?Hypokinetic ? [place]-Septal ? Akinetic ? [place]-Anterior ? Hypokinetic ? [place]-Lateral ?Akinetic ? [place]-Inferior ? Hypokinetic ? [place]-Tip ?Akinetic ? This report has been electronically sign ed by: _ Scott Ortega M.D. ? 08/15/2018 08:17:26 Images reviewed and interpretation ver ied [facility] Cardiac Ultrasound Laboratory Procedure Note Scott Ortega MD - 08/15/2018Format ting of this note might be different from the original. Procedure: Transthoracic Echocardiogram Patient: NATALYA MCBRIDE(Age): [birth year]73y) Med Rec#: [id number] Sex: M Site Loc: [facility] Ht / Wt: 172(cm)/81(kg) Pt. Loc: Echo Lab BSA: 1.94 Study Date: 08/15/2018 Pt. Type: Outpati ent Tape: Referring: MARY ELLEN Reading: Scott Ortega ([id number]) Fur Weigher: Laura Sargent Diagnosis: *Chronic systolic (congestive) heart [...] MV E-wave Vmax 1.2 m/sec MV deceleration eajy471.4 msec MV A-wave Vmax 0.7 m/sec MV [...] Akinetic Mid-Posterolateral Akinetic Mid-Inferior Hypokinetic Mid-Inferoseptal Hypokinetic [place]-Septal Akinetic [place]-Anterior Hypokinetic [place]-Lateral Akinetic [place]-Inferior Hypokinetic [place]-Tip Akinetic This report has been electronically sign ed by: _ Scott Ortega M.D. 08/15/2018 08:17: 26 Images reviewed and interpretation verif ied [facility] Cardiac Ultrasound Laboratory Danette A Hans RETAIL PERFORMANCE SPECIALIST ECHO ORDERABLES documented in this encounter [...] Routine documented in this encounter Care Teams Chief Controller Tower Relationship Specialty Start Date End Date Lovely Vicente MD PCP - General 04/16/[address] [place] [address] documented as of this encounter
--- OUTSIDE RECORDS SUMMARY | 2022-04-17 08:21 | XMS_ITS | Encounter Summary ---
:1945 Author Organization [facility] [place] [address] Care Team Providers Name Role Phone Lovely Vicente MD Primary Care Provider Reason for Visit Reason Onset Date Comments Other 11/11/2017 Please call [facility] Encounter Details Date Type Department Care Team Description 11/11/2017 Telephone Cardiology at [facility] Danette Maxwell, Other (Please call [facility] SR. LOGISTICS ANALYST [facility] ) [place] [address] CARDIOLOGY [place], [place] [address] (Wo rk) [...] Zulma Dolan MD [facility] [address] [place], [place] [address] (Wo rk) 05/28/2022 Laboratory Appointment Lab 05/28/2022 Office Visit Cardiology Zulma Dolan MD [facility] [place] [address] Liz Poole PA [facility] [place] [address] 06/10/2022 Office Visit Dermatology Laura Scherer MD [facility] DR [address] [place], [place] [address] (Wo rk) documented as of this encounter Visit Diagnoses Not on filedocumented in this encounter Care Teams Vamp Strap Ironer Relationship Specialty Start Date End Date Lovely Vicente MD PCP - General 04/16/15 [facility] [address] [place] [address] documented as of this encounter
--- OUTSIDE RECORDS SUMMARY | 2022-04-17 08:21 | XMS_ITS | Encounter Summary ---
:1945 Author Organization [facility] [place] [address] Care Team Providers Name Role Phone Lovely Vicente MD Primary Care Provider Encounter Details Date Type Department Care Team Description 10/05/2017 Unscheduled Cardiology at [facility] RONNIE Sin PATIENT NOT SEEN Encounter [facility] Tamiko Martinez MD [facility] [address] CARDIOLOGY DEPT [phone] [place] [address] Social History Tobacco Use Types Packs/Day Years [...] Dolan MD [facility] Dr [place], [place] [address] (Wo rk) 05/28/2022 Laboratory Appointment Lab 05/28/2022 Office Visit Cardiology Zulma Dolan MD [facility] [place] [address] Liz Poole PA [facility] [place] [address] 06/10/2022 Office Visit Dermatology Laura Scherer MD [facility] [address] [place], [place] 0[address] (Wo rk) documented as of this encounter Visit Diagnoses Diagnosis DH PATIENT NOT SEEN documented in this encounter Care Teams Automotive Buyer Relationship Specialty Start Date End Date Lovely Vicente MD PCP - General 04/16/[address] [place] [address] documented as of this encounter
--- OUTSIDE RECORDS SUMMARY | 2022-04-17 08:21 | XMS_ITS | Encounter Summary ---
:1945 Author Organization [facility] [address] Care Team Providers Name Role Phone Lovely Vicente MD Primary Care Provider Reason for Visit Reason Comments Skin Check Encounter Details Date Type Department Care Team Description 07/06/2018 Office Visit Dermatology at [facility], Rigoberto Yarbrough (actinic keratosis); MD SHAY Quick III (seborrheic keratosis); [address] [place] [facility] History of melanoma; [place] [address] Skin exam for malignant neoplasm [phone] [facility]DER[facility] [place], [place] [address] Social History Tobacco Use Types [...] Dolan MD [facility] Dr [place], [place] [address] (Wo rk) 05/28/2022 Laboratory Appointment Lab 05/28/2022 Office Visit Cardiology Zulma Dolan MD [facility] [place] [id number] Liz Poole PA [facility] [place] [address] 06/10/2022 Office Visit Dermatology Laura Scherer MD [facility] [address] [place], [place] [address] (Wo rk) documented as of this encounter Visit Diagnoses Diagnosis AK (actinic keratosis) Actinic keratosis SK (seborrheic keratosis) Other seborrheic keratosis History of melanoma Personal history of malignant melanoma o f skin Skin exam for malignant neoplasm Screening for malignant neoplasm of the skin documented in this encounter Care Teams Mill House Supervisor Relationship Specialty Start Date End Date Lovely Vicente MD PCP - General 04/16/[address] [place] [address] documented as of this encounter
--- OUTSIDE RECORDS SUMMARY | 2022-04-17 08:21 | XMS_ITS | Encounter Summary ---
:1945 Author Organization [place] [address] Care Team Providers Name Role Phone Lovely Vicente MD Primary Care Provider Reason for Visit Reason Onset Date Comments Other 03/24/2019 cardiac clearance ne eded Encounter Details Date Type Department Care Team Description 03/24/2019 Telephone Cardiology at [facility] Danette Maxwell, Other (cardiac [facility] FIRE APPARATUS SPRINKLER INSPECTOR clearance needed) [place] [address] CARDIOLOGY [place], [place] 0[address] (Wo rk) Social History [...] AM EDT Leonela from [facility] [place] called requesting cardiac clearance for this patient who is to have a colonoscopy on 04/04/19. He is on anticoagulation and they will need to bridge him. Their phone # [phone], fax# [phone]. Thank you. documented in this encounter Plan of Treatment Upcoming Encounters Date Type Specialty Care Team Description 05/28/2022 Appointment Cardiology Zulma Dolan MD [facility] [place], [place] [address] (Wo rk) 05/28/2022 Laboratory Appointment Lab 05/28/2022 Office Visit Cardiology Zulma Dolan MD [facility] [place] [address] Liz Poole PA [facility] [place] [address] 06/10/2022 Office Visit Dermatology Laura Scherer MD [facility] [address] [place], [place] [address] (Wo rk) documented as of this encounter Visit Diagnoses Not on filedocumented in this encounter Care Teams Oracle Software Engineer Relationship Specialty Start Date End Date Lovely Vicente MD PCP - General 04/16/[address] [place] [address] documented as of this encounter
--- OUTSIDE RECORDS SUMMARY | 2022-04-17 08:21 | XMS_ITS | Encounter Summary ---
:1945 Author Organization [facility] [place] [address] Care Team Providers Name Role Phone Lovely Vicente MD Primary Care Provider Encounter Details Date Type Department Care Team Description 11/29/2017 Office Visit Cardiology at [facility] Annette Maxwell Chronic systolic congestive heart failure; [facility] A, VACCINE CUSTOMER REPRESENTATIVE ASCVD (arteriosclerotic cardiovascular d isease); [facility] Cardiomyopathy, ischemic; [place], [place] PAD (peripheral artery disease) [phone] CARDIOLOGY [phone] [place], [place] [address] Social History Tobacco Use Types [...] in this encounter Progress Notes Annette Maxwell, VACCINE CUSTOMER REPRESENTATIVE - 11/29/2017 9:20 AM EDT ID and [...] 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 Plan: 1. A review of [...] Zulma Dolan MD [facility] [place], [place] [address] (Wo rk) 05/28/2022 Laboratory Appointment Lab 05/28/2022 Office Visit Cardiology Zulma Dolan MD [facility] [place] [address] Liz Poole PA [facility] [place] [address] 06/10/2022 Office Visit Dermatology Laura Scherer MD [facility] [address] [place], [place] [address] (Wo rk) documented as of this encounter Results Arterial Duplex Leg, Unil (11/29/2017 10:32 AM EDT) Component Value Ref Test Analysis Performed At [facility] Range Method Time Signature VB Text Department: Vascular Surgery Lab VASCUBASE Report Patient: [id number] (GREGORY HOANG) CPT: 82143 ICD10: I72.4;I73.9 Referring Physician: ANNETTE MAXWELL ?? [...] lab da tabase for comparison. Notification: Annette bucnh APRN was informed of these preliminary findings, [...] 217 (H) 65 - 199 [facility] mg/dL [facility] Comment: [...] or in patients with acute kidney failure. [email or web address] Specimen Anatomical Collection Method Collection Time Receive d Time (Source) Location / / Volume Laterality Blood specimen 11/29/2017 8:22 AM 05/07/2 018 8:29 (specimen) EDT AM EDT Resulting Agency Comment Spec In Lab Annette Maxwell VACCINE CUSTOMER REPRESENTATIVE CHEMISTRY ORDERABLES Performing Organization Address City/State/[place] [address] (ABNORMAL) pro-Brain Natriuretic Peptide (11/29/2017 8:22 AM EDT) P athologist Signature ProBNP 1,769 (H) <=125 [facility] pg/mL [facility] Specimen Anatomical Collection Method Collection Time Receive d Time (Source) Location / / Volume Laterality Blood specimen 11/29/2017 8:22 AM 018 8:29 (specimen) EDT AM EDT Resulting Agency Comment Spec In Lab Annette Maxwell VACCINE CUSTOMER REPRESENTATIVE CHEMISTRY ORDERABLES Performing Organization Address City/[facility]/[place] [address] documented in this encounter Visit Diagnoses Diagnosis Chronic systolic congestive heart failur e Chronic systolic heart failure ASCVD (arteriosclerotic cardiovascular d isease) Unspecified cardiovascular disease Cardiomyopathy, ischemic Other specified forms of chronic ischemi c heart disease PAD (peripheral artery disease) Peripheral vascular disease, unspecified documented in this encounter Care Teams Recovery Assistant Relationship Specialty Start Date End Date Lovely Vicente MD PCP - General 04/16/[address] [place] [address] documented as of this encounter
--- OUTSIDE RECORDS SUMMARY | 2022-04-17 08:22 | XMS_ITS | Encounter Summary ---
:1945 Author Organization [facility] [place] [address] Care Team Providers Name Role Phone Lovely Vicente MD Primary Care Provider Encounter Details Date Type Department Care Team Description 08/25/2017 Telephone Pain Management at Angeles Bueno, [place] [address] Social History Tobacco Use Types Packs/Day [...] Management Center Preauthorization Request Patient: Don Fatima [id number] Fax received from [employer] denying prior authorization for Lidocaine Patches prescribed by Barbra Soares APRN. RX insurance plan: [employer] RX insurance telephone: [phone] Patient Diagnosis: right foot pain secondary to PVD and ischemia ? Previous medications attempted: Tylenol, Tramadol, Dilaudid Authorization/Reference number: [id number] _x_ denied, provider and patient informed _x_ appeal initiated by provider, patient informed Angeles Rodrigez, RN documented in this encounter Plan of Treatment Upcoming Encounters Date Type Specialty Care Team Description 05/28/2022 Appointment Cardiology Zulma Dolan MD [facility] [place], [place] [address] (Wo rk) 05/28/2022 Laboratory Appointment Lab 05/28/2022 Office Visit Cardiology Zulma Dolan MD [facility] [place] [address] Liz Poole PA [facility] [place] [address] 06/10/2022 Office Visit Dermatology Laura Scherer MD [facility] [address] [place], [place] [address] (Wo rk) documented as of this encounter Visit Diagnoses Not on filedocumented in this encounter Care Teams Crown Pouncer Relationship Specialty Start Date End Date Lovely Vicente MD PCP - General 04/16/[address] [place] [address] documented as of this encounter
--- OUTSIDE RECORDS SUMMARY | 2022-04-17 08:22 | XMS_ITS | Encounter Summary ---
:1945 Author Organization [facility] [place] [address] Care Team Providers Name Role Phone Lovely Vicente MD Primary Care Provider Reason for Visit Reason Comments Follow-up Encounter Details Date Type Department Care Team Description 08/19/2017 Office Visit Cardiac Surgery at [place], Jock S/P C ABG (coronary [facility] [place] N, artery bypass graft) [facility] [place] CARDIOTHORACIC [address] SURGERY [phone] [place], [place] [address] Social History Tobacco Use Types [...] office. Best personal regards, Yuan Retana MD [phone] documented in this encounter Plan of Treatment Upcoming Encounters Date Type Specialty Care Team Description 05/28/2022 Appointment Cardiology Zulma Dolan MD [facility] er [address] [place] [address] (Wo rk) 05/28/2022 Laboratory Appointment Lab 05/28/2022 Office Visit Cardiology Zulma Dolan MD [facility] [place] [address] Liz Poole PA [facility] [place] [address] 06/10/2022 Office Visit Dermatology Laura Scherer MD [facility] ER [address] [place] [address] (Wo rk) documented as of this encounter [...] 454 ms MUSE SYSTEM (Bezet) Calculated P [place] 20 degrees MUSE SYSTEM Calculated R [place] -29 degrees MUSE SYSTEM Calculated T [place] 121 degrees MUSE SYSTEM INTERPRETATION Normal sinus rhythm MUSE SYSTEM Inferior infarct (cited on or before 25-JAN-2013) Anterior 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) T wave abnormality, consider lateral ischemia Abnormal ECG When compared with ECG of 06-AUG-2017 12:37, No signif icant change was found Confirmed by MD Luci, Taurus Braun ([id number]) on 08/19/2017 1 0:37:38 PM Specimen Anatomical [...] status documented in this encounter Care Teams Cadet Deck Relationship Specialty Start Date End Date Lovely Vicente MD PCP - General 04/16/[address] [place] [address] documented as of this encounter
--- OUTSIDE RECORDS SUMMARY | 2022-04-17 08:22 | XMS_ITS | Encounter Summary ---
:1945 Author Organization [facility] [place] [address] Care Team Providers Name Role Phone Lovely Vicente MD Primary Care Provider Encounter Details Date Type Department Care Team Description 08/19/2017 Hospital Encounter XRay at [facility] Martha Teague, S/P CABG x 3 [address] [facility] [place] [address] [place] [address] RD [phone] [facility] [place], [place] [address] (Wo rk) Social History [...] Cardiology Zulma Dolan MD [facility] [place], [place] [address] (Wo rk) 05/28/2022 Laboratory Appointment Lab 05/28/2022 Office Visit Cardiology Zulma Dolan MD [facility] [place] [address] Liz Poole PA [facility] [place] [address] 06/10/2022 Office Visit Dermatology Laura Scherer MD [facility] [address] [place], [place] [address] (Wo rk) documented as [...] 2017 EXAMINATION: XR CHEST PA AND LATERAL ([facility]) CLINICAL HISTORY: CABG x 3 TECHNIQUE: PA [...] status documented in this encounter Care Teams Gi Physician Relationship Specialty Start Date End Date Lovely Vicente MD PCP - General 04/16/[address] [place], [place] [address]Y [facility] 1 [place] [address] documented as of this encounter
--- OUTSIDE RECORDS SUMMARY | 2022-04-17 08:22 | XMS_ITS | Encounter Summary ---
:1945 Author Organization [facility] [place] [address] Care Team Providers Name Role Phone Lovely Vicente MD Primary Care Provider Reason for Referral Consultation (Routine) - Specialty Diagnoses / Procedures Referred By Contact Refer red To Contact [facility] Diagnoses Atheroembolism of foot, right Delayed surgical wound healing, subsequent encounter Aurelia Rivera PA [address] [facility] [place] [address] Referral ID Status Reason Start Date Expiration Date Visits V isits Requested Authorized [id number] Consult, 09/08/2017 03/07/2018 1 1 Test & Treat Reason for Visit Reason Comments Wound Check My foot hurts Encounter Details Date Type Department Care Team Description 09/07/2017 Office Visit Vascular Surgery at MiguelAurelia PA Atheroembolism of foot, right; [facility] Delayed surgical wound healing, subseque nt encounter [facility] [place] [address] [phone] Social History Tobacco Use Types Packs/Day Years [...] at home for [facility]AC dressing [facility]. Since his last visit his right forefoot wound [facility] better seal with [...] SETUP performed by Manny Mcknight MD at [facility] MAIN OR ??? PRO AMPUTATION FOOT, TRANSMETATARSAL Right 08/09/2017 AMPUTATION, TRANSMETATARSAL (WRVU 12.71) performed by Yonathan Smith MD at [facility] MAIN OR ??? PRO CABG, ARTERIAL, SINGLE N/A 07/07/2017 @CABG, USING ARTERIAL GRAFT;SINGLE ARTERIAL GRAFT (WRVU 33.75) performed by Yuan Retana MD at [facility] MAIN OR ??? PRO CABG, ARTERY-VEIN, TWO N/A 07/07/2017 @CABG, TWO VENOUS GRAFTS & ARTERIAL GRAFT (WRVU 7.93) performed by Yuan Retana MD at [facility] MAIN OR ??? PRO COLONOSCOPY, REMV LESN, SNARE 01/16/2014 COLONOSCOPY, POLYPECTOMY, REMOVAL LESION BY SNARE performed by Nohemi Jaimes MD at [facility] ENDOSCOPY ??? PRO DRESSING CHANGE UNDER ANESTHESIA Right 08/11/2017 (MSURG) DRESSING CHANGE (FOR OTHER THAN IVAN) UNDER ANES. (WRVU 0.86) performed by Lamar Smith MD at [facility] MAIN OR ??? PRO ENDOSCOPY W/VIDEO-ASST VEIN HARVEST, CABG Right 07/07/2017 ENDOSCOPIC HARVEST VEIN(S) FOR CABG (WRVU 0.31) performed by Yuan Retana MD at [facility] MAIN OR ??? PRO THYROIDECTOMY 03/28/2013 THYROIDECTOMY, TOTAL OR COMPLETE performed by Manny Mcknight MD at [facility] OR Social Hx: Social [...] Zulma Dolan MD [facility] [place], [place] [address] (Wo rk) 05/28/2022 Laboratory Appointment Lab 05/28/2022 Office Visit Cardiology Zulma Dolan MD [facility] [place] [address] Liz Poole PA [facility] [place] [address] 06/10/2022 Office Visit Dermatology Laura Scherer MD [facility] [address] [place], [place] [address] (Wo rk) Scheduled Referrals Name Type Priority Associated Diagnoses Order S chedule Referral to Wound Outpatient Referral Routine Atheroembolism o f foot, Ordered: Clinic right 09/08/2017 Delayed surgical wound healing, subsequent encounter documented as of this encounter Visit Diagnoses Diagnosis Atheroembolism of foot, right Delayed surgical wound healing, subseque nt encounter documented in this encounter Care Teams Doctor Of Nursing Practice Relationship Specialty Start Date End Date Lovely Vicente MD PCP - General 04/16/[address] [facility] [place] [address] documented as of this encounter
--- OUTSIDE RECORDS SUMMARY | 2022-04-17 08:22 | XMS_ITS | Encounter Summary ---
:1945 Author Organization [facility] [address] Care Team Providers Name Role Phone Lovely Vicente MD Primary Care Provider Encounter Details Date Type Department Care Team Description 09/07/2017 Office Visit [facility]ocrinology at [facility] Maria Ines Stallings of [facility] [place] [address] CENTER [phone] ENDOCRINOLOGY DEPT [place], [place] [address] Social History Tobacco Use Types [...] MD [facility] er Dr [place], [place] [address] (Wo rk) 05/28/2022 Laboratory Appointment Lab 05/28/2022 Office Visit Cardiology Zulma Dolan MD [facility] [place] [address] Liz Poole PA [facility] [place] [address] 06/10/2022 Office Visit Dermatology Laura Scherer MD [facility] ER [address] [place], [place] [address] (Wo rk) documented as of this encounter Visit Diagnoses Diagnosis Hx of papillary thyroid carcinoma Personal history of malignant neoplasm o f thyroid documented in this encounter Care Teams Integration Software Engineer Relationship Specialty Start Date End Date Lovely Vicente MD PCP - General 04/16/15 [facility] [address] [place] [address] documented as of this encounter
--- OUTSIDE RECORDS SUMMARY | 2022-04-17 08:22 | XMS_ITS | Encounter Summary ---
:1945 Author Organization [facility] [place] [address] Care Team Providers Name Role Phone Lovely Vicente MD Primary Care Provider Encounter Details Date Type Department Care Team Description 08/26/2017 Hospital Encounter Vascular Lab at [facility], Athero embolism of foot, right; [place], [place] Delayed surgi nusrat wound healing, [place] [phone] Social History Tobacco Use Types Packs/Day Years [...] Cardiology Zulma Dolan MD [facility] [address] [place], [place] [address] (Wo rk) 05/28/2022 Laboratory Appointment Lab 05/28/2022 Office Visit Cardiology [place]ulma [place]olan [place] [address] Liz Poole PA [facility] [place] [address] 06/10/2022 Office Visit Dermatology Laura Scherer MD [facility] [address] [place], [place] [address] (Wo rk) documented as [...] Analysis Performed At [facility] Range Method Time Signature VB Text Department: Vascular Surgery Lab VASCUBASE Report Patient: [id number] (DON HOANG) CPT: 54168 ICD10: T81.89XA;I75.021 Referring Physician: ELVER BLOOM ?? [...] encounter documented in this encounter Care Teams Learning Facilitator Relationship Specialty Start Date End Date Lovely Vicente MD PCP - General 04/16/[address] [place] [address] documented as of this encounter
--- OUTSIDE RECORDS SUMMARY | 2022-04-17 08:22 | XMS_ITS | Encounter Summary ---
:1945 Author Organization [facility] [place] [address] Care Team Providers Name Role Phone Lovely Vicente MD Primary Care Provider Encounter Details Date Type Department Care Team Description 08/19/2017 Office Visit Vascular Surgery at [place], PAD (peripheral artery [facility] CARDIOVASCULAR RADIOLOGIC TECHNOLOGIST disease) [facility] [address] [place], [place] VASCULAR SURGERY [address] [place] [address] [phone] Social History Tobacco Use Types Packs/Day Years [...] Zulma Dolan MD [facility] [place], [place] [address] (Wo rk) 05/28/2022 Laboratory Appointment Lab 05/28/2022 Office Visit Cardiology Zulma Dolan MD [facility] [place] [address] Liz Poole PA [facility] [place] [address] 06/10/2022 Office Visit Dermatology Laura Scherer MD [facility] DR [address] [place], [place] [address] (Wo rk) documented as of this encounter Visit Diagnoses Diagnosis PAD (peripheral artery disease) Peripheral vascular disease, unspecified documented in this encounter Care Teams Deputy City Clerk Relationship Specialty Start Date End Date Lovely Vicente MD PCP - General 04/16/[address] [place] [address] documented as of this encounter
--- OUTSIDE RECORDS SUMMARY | 2022-04-17 08:22 | XMS_ITS | Encounter Summary ---
:1945 Author Organization [facility] [place] [address] Care Team Providers Name Role Phone Lovely Vicente MD Primary Care Provider Reason for Visit Reason Onset Date Comments VNA Calls 08/30/2017 Encounter Details Date Type Department Care Team Description 08/30/2017 Telephone Vascular Surgery at [facility] Cora Reid RN VNA Calls [facility] [place] [address] Social History Tobacco Use Types Packs/Day [...] 08/30/2017 11:16 AM EST Caller: Alfonso at [facility] [phone] Reason for call: Changing his wound vac [...] had been in contact with [facility]'s Wound Care Nurse who advised him to [...] Zulma Dolan MD [facility] [place], [place] [address] (Wo rk) 05/28/2022 Laboratory Appointment Lab 05/28/2022 Office Visit Cardiology Zulma Dolan MD [facility] [place] [address] Liz Poole PA [facility] [place] [address] 06/10/2022 Office Visit Dermatology Laura Scherer MD [facility] [address] [place], [place] [address] (Wo rk) documented as of this encounter Visit Diagnoses Not on filedocumented in this encounter Care Teams Skiver Blockers Relationship Specialty Start Date End Date Lovely Vicente MD PCP - General 04/16/[address] [place] [address] documented as of this encounter
--- OUTSIDE RECORDS SUMMARY | 2022-04-17 08:22 | XMS_ITS | Encounter Summary ---
:1945 Author Organization [facility] [place] [address] Care Team Providers Name Role Phone Lovely Vicente MD Primary Care Provider Encounter Details Date Type Department Care Team Description 09/06/2017 Orders Only Vascular Surgery at [facility] Ninfa Clark, [facility] [place] [address] Social History Tobacco Use Types Packs/Day [...] [facility] er [place], [place] [address] (Wo rk) 05/28/2022 Laboratory Appointment Lab 05/28/2022 Office Visit Cardiology Zulma Dolan MD [facility] [place] [address] Liz Poole PA [facility] [place] [address] 06/10/2022 Office Visit Dermatology Laura Scherer MD [facility] [address] [place], [place] [address] (Wo rk) documented as of this encounter Visit Diagnoses Not on filedocumented in this encounter Care Teams Fire And Safety Helper Relationship Specialty Start Date End Date Lovely Vicente MD PCP - General 04/16/[address] [place] [address] documented as of this encounter
--- OUTSIDE RECORDS SUMMARY | 2022-04-17 08:22 | XMS_ITS | Encounter Summary ---
:1945 Author Organization [facility] [place] [address] Care Team Providers Name Role Phone Lovely Vicente MD Primary Care Provider Encounter Details Date Type Department Care Team Description 09/03/2017 Telephone Vascular Surgery at [place] Ninfa Clark, [place] [address] Social History Tobacco Use Types Packs/Day [...] help with the discomfort of the change. Home Health Care Worker told the VNA that I would ask [...] Cardiology Zulma Dolan MD [facility] [place], [place] [address] (Wo rk) 05/28/2022 Laboratory Appointment Lab 05/28/2022 Office Visit Cardiology Zulma Dolan MD [facility] [place] [address] Liz Poole PA [facility] [place] [address] 06/10/2022 Office Visit Dermatology Laura Scherer MD [facility] [address] [place], [place] [address] (Wo rk) documented as of this encounter Visit Diagnoses Not on filedocumented in this encounter Care Teams Chief Of Safety And Protection Relationship Specialty Start Date End Date Lovely Vicente MD PCP - General 04/16/[address] [place] [address] [address] [facility] 1 [place] [address] documented as of this encounter
--- OUTSIDE RECORDS SUMMARY | 2022-04-17 08:22 | XMS_ITS | Encounter Summary ---
:1945 Author Organization [facility] [place] [address] Care Team Providers Name Role Phone Lovely Vicente MD Primary Care Provider Encounter Details Date Type Department Care Team Description 09/06/2017 Telephone Vascular Surgery at [facility] Ninfa Clark, [place] [address] Social History Tobacco Use Types Packs/Day [...] Cardiology Zulma Dolan MD [facility] [place], [place] [address] (Wo rk) 05/28/2022 Laboratory Appointment Lab 05/28/2022 Office Visit Cardiology Zulma Dolna MD [facility] [place] [address] Liz Poole PA [facility] [place] [address] 06/10/2022 Office Visit Dermatology Laura Scherer MD [facility] [address] [place], [place] [address] (Wo rk) documented as of this encounter Visit Diagnoses Not on filedocumented in this encounter Care Teams Manager Quality Relationship Specialty Start Date End Date Lovely Vicente MD PCP - General 04/16/[address] [place] [address] documented as of this encounter
--- OUTSIDE RECORDS SUMMARY | 2022-04-17 08:22 | XMS_ITS | Encounter Summary ---
:1945 Author Organization [place] [address] Care Team Providers Name Role Phone Lovely Vicente MD Primary Care Provider Reason for Referral Diagnostic Test (Routine) - Closed Specialty Diagnoses / Procedures Referred By Contact Refer red To Contact Cardiology Diagnoses Ischemic cardiomyopathy Acute on chronic systolic congestive heart failure Danette Maxwell APRN [facility] Non-Inv Card Lab Procedures Echocardiogram Transthoracic(Leb) [facility] [place] [address] [place] [address] Referral ID Status Reason Start Date Expiration Date Visits V isits Requested Authorized [id number] Closed Specialty 08/30/2017 08/30/2018 1 1 Service Requested Encounter Details Date Type Department Care Team Description 08/26/2017 Office Visit Cardiology at [facility] Danette Maxwell Ischemic cardiomyopathy; [facility] STACIE Gomes Acute on chronic systolic congestive hea rt failure ; Drive [facility] ASCVD (arteriosclerotic card iovascular disease); [place], [place] PAF (paroxysmal atrial fibrillation); [phone] CARDIOLOGY PAD (peripheral artery disease) [phone] [place], [place] [address] Social History Tobacco Use Types Packs/Day Years [...] painful and swollen right foot right 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 [...] Cardiology Zulma Dolan MD [facility] [place], [place] [address] (Wo rk) 05/28/2022 Laboratory Appointment Lab 05/28/2022 Office Visit Cardiology Zulma Dolan MD [facility] [place] [address] Liz Poole PA [facility] [place] [address] 06/10/2022 Office Visit Dermatology Laura Scherer MD [facility] [address] [place], [place] [address] (Wo rk) documented as of this encounter Results ECHOCARDIOGRAM COMPLETE W CONTRAST (10/07/2017 10:23 AM EDT) athologist Signature EF 45 HEART[facility] SYSTEM Anatomical Region Laterality Modality Other Specimen (Source) Anatomical Location Collection Method / Collectio n Time Received Time / Laterality Volume 10/07/2017 Narrative 10/07/2017 11:13 AM EDT Procedure: ?Transthoracic Echocardiogram Patient: ?NATALYA Mccollum ? (Age): 1945(72y) Med Rec#: ? [id number] ?Sex: ?M ? Site Loc: ? [facility] ?Ht / Wt: ??173(cm)/82(kg) Pt. Loc: ?Echo Lab ?BSA: ?1.96 Study Date: ?? 10/07/2017 ?Pt. Type: Outpatient Tape: ? Referring: Danette Maxwell Reading: Iker Cuevas ([id number]) Derivatives Trader: Yonathan Bocanegra Diagnosis: *ICD-10-PCS Ischemic cardiomyopathy (I2 [...] E-wave Vmax ?1.2 ?m/sec ? MV deceleration [id number] ?msec ? MV A-wave Vmax ?1 ?m/sec [...] ? Mid-Inferior ?Hypokinetic ? Mid-Inferoseptal ?Hypokinetic ? [place]-Septal ? Akinetic ? [place]-Anterior ? Hypokinetic ? [place]-Lateral ?Hypokinetic ? [place]-Inferior ? Hypokinetic ? [place]-Tip ?Akinetic ? This report has been electronically sign ed by: _ Iker Cuevas M.D. ? 10/07/2017 11:12:34 Images reviewed and interpretation [facility] Cardiac Ultrasound Laboratory Procedure Note Iker Cuevas MD - 10/07/2017Formatti ng of this note might be different from the original. Procedure: Transthoracic Echocardiogram Patient: NATALYA Mccollum (Age): [birth year]72y) Med Rec#: [id number] Sex: M Site Loc: [facility] Ht / Wt: 173(cm)/82(kg) Pt. Loc: Echo Lab BSA: 1.96 Study Date: 10/07/2017 Pt. Type: Outpati ent Tape: Referring: Danette Maxwell Reading: Iker Cuevas ([id number]) Derivatives Trader: Yonathan Bocanegra Diagnosis: *ICD-10-PCS Ischemic cardiomyopathy (I2 [...] MV E-wave Vmax 1.2 m/sec MV deceleration [id number] msec MV A-wave Vmax 1 m/sec MV [...] Akinetic Mid-Posterolateral Hypokinetic Mid-Inferior Hypokinetic Mid-Inferoseptal Hypokinetic [place]-Septal Akinetic [place]-Anterior Hypokinetic [place]-Lateral Hypokinetic [place]-Inferior Hypokinetic [place]-Tip Akinetic This report has been electronically sign ed by: _ Iker Cuevas M.D. 10/07/2017 11:12 :34 Images reviewed and interpretation [facility] Cardiac Ultrasound Laboratory Danette Maxwell APRN ECHO ORDERABLES Basic Metabolic Panel (non-fasting) (08/26/2017 2:00 PM EST) P athologist Signature Glucose Lvl 98 65 - 199 [facility] mg/dL [facility] Comment: Diabetes: >=200 mg/dL plus symp toms BUN 20 10 - 20 mg/dL [facility] Creatinine 1.17 0.80 - 1.50 [...] - 15 mmol/L [facility] Calcium 9.1 8.5 - 10.5 mg/dL [facility] Estimated GFR >60 >=60 [facility] Comment: The reported eGFR should be multiplied b y 1.2 for patients. The MDRD is not an appropriate measure o f renal function for patients with body mass extremes or in patients with acute kidney failure. http://[employer]/DHnkdep http://[employer]/DHMCnkf Specimen Anatomical Collection Method Collection Time Receive d Time (Source) Location / / Volume Laterality Blood specimen 08/26/2017 2:00 PM 018 2:15 (specimen) EST PM EST Resulting Agency Comment Spec In Lab Danette Maxwell APRN CHEMISTRY ORDERABLES Performing Organization Address City/State/ZIP Code Phon e Number [address] (ABNORMAL) pro-Brain Natriuretic Peptide (08/26/2017 2:00 PM EST) P athologist Signature ProBNP 2,373 (H) <=125 [facility] RYAN pg/mL [facility] Specimen Anatomical Collection Method Collection Time Receive d Time (Source) Location / / Volume Laterality Blood specimen 08/26/2017 2:00 PM 018 2:15 (specimen) EST PM EST Resulting Agency Comment Spec In Lab Danette aMxwell APRN CHEMISTRY ORDERABLES Performing Organization Address City/State/[place] [address] documented in this encounter [...] failure documented in this encounter Care Teams Mutual Funds Agent Relationship Specialty Start Date End Date Lovely Vicente MD PCP - General 04/16/[address] [place] [address] documented as of this encounter
--- OUTSIDE RECORDS SUMMARY | 2022-04-17 08:22 | XMS_ITS | Encounter Summary ---
:1945 Author Organization [facility] [place] [address] Care Team Providers Name Role Phone Lovely Vicente MD Primary Care Provider Reason for Visit Reason Comments Follow-up I'm having trouble with the VAC Encounter Details Date Type Department Care Team Description 08/26/2017 Office Visit Vascular Surgery at [facility], STEPHANIE Mercado Atheroembolism of foot, right; [facility] [address] Delayed surgical wound healing, initial encounter; [facility] VASCULAR SURG YEHUDA Acute on chronic systolic congestive hea rt failure ; [place], [place] [id number] [phone] Social History Tobacco Use Types Packs/Day Years [...] home and into the care of the [facility]. However, since discharge from [facility] he has had some difficulty with [...] SETUP performed by Manny Mcknight MD at [facility] MA[facility] OR ??? PRO AMPUTATION FOOT, TRANSMETATARSAL Right 08/09/2017 AMPUTATION, TRANSMETATARSAL (WRVU 12.71) performed by Yonathan Smith MD at [facility] MA[facility] OR ??? PRO CABG, ARTERIAL, SINGLE N/A 07/07/2017 @CABG, USING ARTERIAL GRAFT;SINGLE ARTERIAL GRAFT (WRVU 33.75) performed by Yuan Retana MD at [facility] OR ??? PRO CABG, ARTERY-VEIN, TWO N/A 07/07/2017 @CABG, TWO VENOUS GRAFTS & ARTERIAL GRAFT (WRVU 7.93) performed by Yuan Retana MD at [facility] OR ??? PRO COLONOSCOPY, REMV LESN, SNARE 01/16/2014 COLONOSCOPY, POLYPECTOMY, REMOVAL LESION BY SNARE performed by Nohemi Jaimes MD at [facility] ENDOSCOPY ??? PRO DRESSING CHANGE UNDER ANESTHESIA Right 08/11/2017 (MSURG) DRESSING CHANGE (FOR OTHER THAN IVAN) UNDER ANES. (WRVU 0.86) performed by Lamar Smith MD at [facility] OR ??? PRO ENDOSCOPY W/VIDEO-ASST VEIN HARVEST, CABG Right 07/07/2017 ENDOSCOPIC HARVEST VEIN(S) FOR CABG (WRVU 0.31) performed by Yuan Retana MD at [facility] OR ??? PRO THYROIDECTOMY 03/28/2013 THYROIDECTOMY, TOTAL OR COMPLETE performed by Manny Mcknight MD at [facility] OR Social Hx: Social History Substance [...] Cardiology Zulma Dolan MD [facility] [place], [place] [address] (Wo rk) 05/28/2022 Laboratory Appointment Lab 05/28/2022 Office Visit Cardiology Zulma Dolan MD [facility] [place] [address] Liz Poole PA [facility] [place] [address] 06/10/2022 Office Visit Dermatology Laura Scherer MD [facility] [address] [place], [place] [address] (Wo rk) documented as [...] Department: Vascular Surgery Lab VASCUBASE Report Patient: [id number] (GREGORY FATIMA) CPT: 84665 ICD10: T81.89XA;I75.021 Referring Physician: ARIK CLEMENT ?? [...] Lvl 98 65 - 199 [facility] mg/dL [facility] Comment: Diabetes: >=200 mg/dL plus symp toms BUN 20 10 - 20 mg/dL [facility] Creatinine 1.17 0.80 - 1.50 mg/dL [facility] [...] 15 mmol/L [facility] Calcium 9.1 8.5 - 10.5 mg/dL [facility] Estimated GFR >60 >=60 [facility] Comment: The reported eGFR should be multiplied b y 1.2 for patients. The MDRD is not an appropriate measure o f renal function for patients with body mass extremes or in patients with acute kidney failure. http://[employer]/DHnkdep http://[employer] +/DHMCnkf Specimen Anatomical Collection Method Collection Time Receive d Time (Source) Location / / Volume Laterality Blood specimen 08/26/2017 2:00 PM 018 2:15 (specimen) EST PM EST Resulting Agency Comment Spec In Lab Danette Maxwell ANATOMY AND PHYSIOLOGY INSTRUCTOR CHEMISTRY ORDERABLES Performing Organization Address City/[facility]/ZIP Code Phon e Number [address] (ABNORMAL) pro-Brain Natriuretic Peptide (08/26/2017 2:00 PM EST) P athologist Signature ProBNP 2,373 (H) <=125 [facility] pg/mL [facility] Specimen Anatomical Collection Method Collection Time Receive d Time (Source) Location / / Volume Laterality Blood specimen 08/26/2017 2:00 PM 018 2:15 (specimen) EST PM EST Resulting Agency Comment Spec In Lab Danette A [place] STACIE CHEMISTRY ORDERABLES Performing Organization Address City/[facility] [place] [address] documented in this encounter Visit Diagnoses Diagnosis Atheroembolism of foot, right Delayed surgical wound healing, initial encounter Acute on chronic systolic congestive hea rt failure Acute on chronic systolic heart failure Ischemic cardiomyopathy Other specified forms of chronic ischemi c heart disease documented in this encounter Care Teams Impact Retail Service Merchandiser Relationship Specialty Start Date End Date Lovely Vicente MD PCP - General 04/16/[address] [place] [address] documented as of this encounter
--- OUTSIDE RECORDS SUMMARY | 2022-04-17 08:23 | XMS_ITS | Encounter Summary ---
:1945 Author Organization [facility] [place] [address] Care Team Providers Name Role Phone Lovely Vicente MD Primary Care Provider Reason for Visit Auth/Cert Specialty Diagnoses / Procedures Referred By Contact Refer red To Contact Diagnoses Critical lower limb ischemia CELLULITIS RT FOOT Procedures EMERGENCY Referral ID Status Reason Start Date Expiration Date Visits Requ ested Visits Authorized [id number] 1 1 Encounter Details Date Type Department Care Team Description 08/11/2017 Surgery Main Operating Room Yonathan Smith (M SURG) DRESSING CHANGE Barbara Ocampo MD (FOR OTHER THAN IVAN) [facility] UNDER ANES. 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 Patient [...] Dorsalis Pedis (Ankle) Artery ?132 ? 0.94 ??[place]un[place]-Biphasic ? Posterior Tibial (Ankle) Artery ??154 ? 1.10 ??[place]unton-Biphasic ? Fourth Toe ? 67 ?0.48 ?? [...] For any problems or questions please call [phone] ZELDA Smith, senior credit officer Nurse Clinician For issues on weeknights after 5pm and weekends please call [phone] and ask for the Vascular Fellow teacher of the emotionally disturbed. General Instructions None Future Appointments and Orders Future Appointments Provider Department Dept Phone 08/26/2017 4:00 PM Aurelia Rivera PA [facility] Surgery [facility] [place] [phone] 09/07/2017 3:00 PM LAB, THREE L Lab 3L [facility] [phone] 09/07/2017 4:00 PM Luz Prescott MD Endocrinology at [place] [phone] 09/09/2017 8:00 AM Barbra Soares APRN Pain Management at [place] [phone] Please bring a list of your current [...] For any problems or questions please call [phone] ZELDA Smith, senior credit officer Nurse Clinician For issues on weeknights after 5pm and weekends please call [phone] and ask for the Vascular Fellow teacher of the emotionally disturbed. documented in this encounter Medications at Time [...] Management Discharge Note Patient Destination: [facility] ([facility] [address] [place] [id number] Transportation: with (at bedside) Time of Discharge: by 12 noon Level of Care: swing Patient Aware: yes Family Notified: yes Md to call report to: Yissel Quintero EDGE BANDER OPERATOR already called RN to call report to: [phone] Shirin Wolf Office of Care Management Pager [phone] Shirin Wagner RN - 08/16/2017 10:50 AM EST [facility] has offered pt swing bed. Pt and accept bed. will transport via car. EDGE BANDER OPERATOR Yissel Quintero aware; d/c paperwork will be completed by 12 noon. [facility] requests pt arrival by 1400 today; EDGE BANDER OPERATOR, RN, and family aware. EDGE BANDER OPERATOR called [facility] and was told that they prefer pt to arrive with wound vac dressing applied but clamped. EDGE BANDER OPERATOR applied new wound vac dressing. RN has [facility] number to call report. PASSR completed; EDGE BANDER OPERATOR paged to request provider signature in highlighted space. Indigo from [facility] notified via email that home wound vac now cancelled; [facility] has picked up from room and order cancelled. Packet started and provided to nurse staff community health. Medicare important message explained to patient, patient signed. Copy provided to patient and signature page to OCM for inclusion in pt EMR. Rahda Georges - 08/16/2017 10:34 AM EST Office of Care Management/Construction Rigger Patient Name: Gregory Hoang : 1945 Patient has been offered a swing bed at [facility]. The patient will be transported by private transportation. No MD to MD report necessary Please call Nursing Report to [phone], ask for home health billing specialist. Info to accompany patient: Narcotic Prescriptions Copies of Medication Administration Records and IV sheets for past 10 days. Plan: Construction Rigger will be available to the patient and Electronics Department Manager-RN and/or Design Teacher for further assistance. Patient will be discharged to: [facility] [address] [place] [address] [id number] Radha Powers, Construction Rigger Mira Black, VAMSI - 08/15/2017 10:05 PM EST [address] Flores to ask if he wanted to hold metoprolol dose. BP 95/58. OK to hold this dose Courtney Brito - 08/15/2017 3:26 PM EST Office of Care Management(OCM)/Construction Rigger(RS)/ D/C Planning re : Patient is medically [...] status. 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 Vac in [...] about patient's referral to: [facility] PHONE: [phone] FAX: [phone] CM spoke with RS who said that [...] rehab. Await recommendations from PT. Covering pager #[phone]. 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 Clay Hoister Kaitlin Saha, RN Pager #[phone] Payam Rosales - 08/13/2017 2:37 PM EST News Analyst Encounter Note Patient Name: Gregory Hoang : [id number] MR#: [id number] Admit Date: 08/06/2017 1:41 PM Hospital Day 7 days Narrative: Visited to introduce and assess acceptance of News Analyst services. Pt was awake, alert, oriented and in chair and family was there. Assessment:Patient coping positively with stresses of illness/hospitalization at this time. Pt says that he is hoping to get better and his family was there. Pt says that he has family care and supportand taking one day at time. Intervention and Outcome: Provided emotional support and encouraging presence. 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 A letter describing our affiliations was reviewed with them and theywere educated about their right to choose where referrals are placed. Patient requests referral to [facility] [employer]. PHONE: [phone] FAX: [phone]. And Home NPWT (Negative Pressure Wound Therapy) aka wound vac device made available to pt. Serial # confirmed. Reviewed [facility] Proof of Delivery/Assignment of Benefits Statement(POD/AOB) Form w patient or authorized agent signing on behalf of patient. Copy of POD/AOB provided to pt and other copy faxed to [employer] @ fax# [phone] Expected date of discharge: 08/12/2017. 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 Address: [address] [place] [address] [place] [address] (home) Mobile: Telephone Information: Referring Provider: No [...] [facility] MAIN OR ??? PRO CABG, ARTERIAL, SINGLE N/A 07/07/2017 @CABG, USING ARTERIAL GRAFT;SINGLE ARTERIAL GRAFT (WRVU 33.75) performed by Yuan Retana MD at [facility] MAIN OR ??? PRO CABG, ARTERY-VEIN, TWO N/A 07/07/2017 @CABG, TWO VENOUS GRAFTS & ARTERIAL GRAFT (WRVU 7.93) performed by Yuan Retana MD at [facility] MAIN OR ??? PRO COLONOSCOPY, REMV LESN, SNARE 01/16/2014 COLONOSCOPY, POLYPECTOMY, REMOVAL LESION BY SNARE performed by Nohemi Jaimes MD at [facility] ENDOSCOPY ??? PRO ENDOSCOPY W/VIDEO-ASST VEIN HARVEST, CABG Right 07/07/2017 ENDOSCOPIC HARVEST VEIN(S) FOR CABG (WRVU 0.31) performed by Yuan Retana MD at [facility] MAIN OR ??? 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 Heparin gtt continues to run. Pt a/ox4. [...] of : 1945 AGE 72 y.o. Address: [address] [place] [address] [place] [address] (home) Mobile: Telephone Information: Referring Provider: No [...] [facility] MAIN OR ??? PRO CABG, ARTERIAL, SINGLE N/A 07/07/2017 @CABG, USING ARTERIAL GRAFT;SINGLE ARTERIAL GRAFT (WRVU 33.75) performed by Yuan Retana MD at [facility] MAIN OR ??? PRO CABG, ARTERY-VEIN, TWO N/A 07/07/2017 @CABG, TWO VENOUS GRAFTS & ARTERIAL GRAFT (WRVU 7.93) performed by Yuan Retana MD at [facility] OR ??? PRO COLONOSCOPY, REMV LESN, SNARE 01/16/2014 COLONOSCOPY, POLYPECTOMY, REMOVAL LESION BY SNARE performed by Nohemi Jaimes MD at [facility] ENDOSCOPY ??? PRO ENDOSCOPY W/VIDEO-ASST VEIN HARVEST, CABG Right 07/07/2017 ENDOSCOPIC HARVEST VEIN(S) FOR CABG (WRVU 0.31) performed by Yuan Retana MD at [facility] MAIN OR ??? 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 Unsuccessful draw attempt, another deputy attorney general will come [facility] to collect blood for PTT test. Chiquis Trivedi RN - 08/08/2017 4:55 PM EST Patient blood sugar 58 at 1601. Patient given juice, hira crackers, and peanut butter. Sugar rechecked at 1642 for 78. Patient given more hiar crackers and peanut butter. 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 Vascular resident teacher of the emotionally disturbed and will forward result to the team prior to rounds. 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 Patient [...] [facility] MAIN OR ??? PRO CABG, ARTERIAL, SINGLE N/A 07/07/2017 @CABG, USING ARTERIAL GRAFT;SINGLE ARTERIAL GRAFT (WRVU 33.75) performed by Yuan Retana MD at [facility] MAIN OR ??? PRO CABG, ARTERY-VEIN, TWO N/A 07/07/2017 @CABG, TWO VENOUS GRAFTS & ARTERIAL GRAFT (WRVU 7.93) performed by Yuan Retana MD at [facility] MAIN OR ??? PRO COLONOSCOPY, REMV LESN, SNARE 01/16/2014 COLONOSCOPY, POLYPECTOMY, REMOVAL LESION BY SNARE performed by Nohemi Jaimes MD at [facility] ENDOSCOPY ??? PRO ENDOSCOPY W/VIDEO-ASST VEIN HARVEST, CABG Right 07/07/2017 ENDOSCOPIC HARVEST VEIN(S) FOR CABG (WRVU 0.31) performed by Yuan Retana MD at [facility] MAIN OR ??? PRO THYROIDECTOMY 03/28/2013 THYROIDECTOMY, TOTAL OR COMPLETE performed by Manny Mcknight MD at [facility] MAIN OR Functional Status/Social Hx: [...] left blue toes with CTA showing R CYLINDER MACHINE OPERATOR PULP DRIER pseudoaneurysm (now thrombosed) and occluded ATs bilaterally. [...] 2.5x80 5. Completion RLE angiogram 6. L CYLINDER MACHINE OPERATOR PULP DRIER angiogram 7. 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 - L CYLINDER MACHINE OPERATOR PULP DRIER angriogram demonstrated: High femoral bifurcation over the proximal half of the femoral head. L CYLINDER MACHINE OPERATOR PULP DRIER access in the distal L CYLINDER MACHINE OPERATOR PULP DRIER. - Closure device: Mynx Technical Procedure: The [...] for a 45cm 5F Destination. V18 and Mcqueeney and QuickCross catheters were used to select [...] 5F. A stationed picture of the L CYLINDER MACHINE OPERATOR PULP DRIER was performed as the patient was noted to have a very high bifurcation. Access appeared in the distal R CYLINDER MACHINE OPERATOR PULP DRIER. Closure and sheath removal was performed with [...] PM EST 1440 report called to 5 [place] nurse Tessa AGUSTIN documented in this encounter Miscellaneous Notes Plan of Care - Dory Truong RN - 08/16/2017 10:51 AM EST Problem: Patient Care Overview Goal: Plan of Care Review Outcome: Outcome (s) achieved Date Met: 08/16/17 08/14/17 1939 08/16/17 2661 Coping/Psychosocial Plan Of Care Reviewed With -- [...] sit/sit to supine -- Bed Mobility Goal, Grayson Level independent -- Bed Mobility Goal, Date [...] days -- Transfer Training Goal, Activity Type huo-fo-ehjxo/wjcqo-jy-xyz -- Transfer Train Goal, Grayson Level conditional independence -- Transfer Train Goal, [...] call cabello within reach, Hourly rounding by RN/COMPANY TANKER TRUCK DRIVER. Bed alarm / Chair alarm. Patient-specific fall [...] Smith MD - 08/15/2017 6:28 PM EST [facility] Operative Note Patient Name: Gregory Hoang : [id number] MR#: [id number] Case Date: 08/09/2017 Surgeon: Surgeon(s) and Role: [...] 2.5x80 5. Completion RLE angiogram 6. L CYLINDER MACHINE OPERATOR PULP DRIER angiogram 7. Mynx closure Precautions/Restrictions: fall, sternal [...] feet/ bed -> bathroom). Anticipated Discharge Disposition[facility], other (see comments) (or swing bed) Pager: [phone] BASSAM ELIAS, PT 08/14/2017 Inpatient Physical Therapy [...] to Achieve by discharge Gait Training Goal, Grayson Level conditional independence;set up required Gait Training [...] Their choices are: 1- [facility] PHONE: [phone] FAX: [phone] 2- [facility] ([facility]) [address] [place] [address] 3- [facility]) [address] [place] [address] I have discussed Medicare/Private Insurance [...] RS/CM on Wednesday to follow-up. Covering pager #[phone] for today. Plan of Care - Henrique [...] with additional findings of pseudoaneurysm on R CYLINDER MACHINE OPERATOR PULP DRIER and bilateral anterior tibial artery occlusions. Was [...] an outpatient once discharged. Have patient call [phone] to set up an appointment. Follow-up: Dermatology will sign-off for now. Please do not hesitate to contact us if you have any questions orconcerns. Impression and Recommendations discussed with primary team on 08/13/2017. Karo Henderson MD Resident in Dermatology Section of Dermatology, Department of Surgery [facility] Pager [phone] Patient seen and evaluated with staff Director Television News: Halima Cordero MD Section of Dermatology [facility] Level of Resident Supervision: [...] 2.5x80 5. Completion RLE angiogram 6. L CYLINDER MACHINE OPERATOR PULP DRIER angiogram 7. Mynx closure Active Non-Hospital Problems [...] home with home health ([facility] PT[facility]OT) Pager: [phone] YASIR TELLO OT 08/12/2017 Occupational Therapy Rehabilitation [...] 2.5x80 5. Completion RLE angiogram 6. L CYLINDER MACHINE OPERATOR PULP DRIER angiogram 7. Mynx closure Past Medical History: [...] with 24/7 assistance and maximal services) Pager: [phone] NICHOLAS MORA, JESSIE 08/12/2017 Physical Therapy Rehabilitation [...] sit/sit to supine -- Bed Mobility Goal, Grayson Level independent -- Bed Mobility Goal, Outcome Achieved -- goal ongoing Goal: Gait Training Goal Stand Alone Therapy Goal Outcome: Ongoing (Interventions Implemented as Appropriate) 08/11/17 1310 08/12/17 1510 Gait Training Goal Gait Training Goal, Date Established 08/11/17 -- Gait Training Goal, Time to Achieve 5 - 7 days -- Gait Training Goal, Grayson Level conditional independence -- Gait Training Goal, [...] days -- Transfer Training Goal, Activity Type elm-eq-djqxx/nalur-yy-ijf -- Transfer Train Goal, Grayson Level conditional independence -- Transfer Training Goal, [...] Smith MD - 08/11/2017 2:52 PM EST [facility] Operative Note Patient Name: Gregory Hoang : [id number] MR#: [id number] Case Date: 08/11/2017 Surgeon: Surgeon(s) and Role: [...] 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 Completion RLE angiogram 6. L CYLINDER MACHINE OPERATOR PULP DRIER angiogram 7. Mynx closure He is very [...] Anticipated Discharge Disposition: inpatient rehabilitation facility Pager: [phone] LAWRENCE GONZALEZ, PT 08/11/2017 Physical Therapy Rehabilitation [...] to sit/sit to supine Bed Mobility Goal, Grayson Level independent Goal: Gait Training Goal Stand Alone Therapy Goal Outcome: Ongoing (Interventions Implemented as Appropriate) 08/11/17 1310 Gait Training Goal Gait Training Goal, Date Established 08/11/17 Gait Training Goal, Time to Achieve 5 - 7 days Gait Training Goal, Grayson Level conditional independence Gait Training Goal, Assist [...] 7 days Transfer Training Goal, Activity Type aij-ik-ntplm/shqtf-dx-tdt Transfer Train Goal, Grayson Level conditional independence Plan of Care - [...] call cabello within reach, Hourly rounding by RN/COMPANY TANKER TRUCK DRIVER. Bed alarm / Chair alarm. ? Patient-specific [...] 04/05/2013 Hospitalizations Within the Past 30 Days: [facility] 07/20/2017 Anticipated Length Of Stay (If known): Expected Length of Hospitalization: 5-7 days2-3 days Current Decision-Making Capacity: Alert and oriented x 4 Advance Care Planning: on file Kisha Hoang [facility] [phone] Current Coping/Education/Information Needs: pt and spouse state [...] Health/Prescription Coverage: Primary Insurance: MEDICARE Secondary Insurance: [employer] [place] Prescription Coverage: See above Preferred Pharmacy: [facility] Other: N/A Primary Care Provider: Lovely Vicente MD [phone] Patient/Caregiver Goals of Treatment: Patient plans to [...] of care planning. Kaitlin Saha RN Pager: [phone] Plan of Care - Melba Jaramillo RN [...] Overview Goal: Plan of Care Review 08/08/17 3194 Coping/Psychosocial Plan Of Care Reviewed With patient [...] call cabello within reach, Hourly rounding by RN/COMPANY TANKER TRUCK DRIVER. Bed alarm / Chair alarm. Patient-specific fall [...] at bedside and MD TEAM Carrying pager [phone] contacted (via Radio page) and notified of [...] Zulma Dolan MD [facility] [place], [place] [address] (Wo rk) 05/28/2022 Laboratory Appointment Lab 05/28/2022 Office Visit Cardiology Zulma Dolan MD [facility] [place] [address] Liz Poole PA [facility] [place] [address] 06/10/2022 Office Visit Dermatology Laura Scherer MD [facility] [address] TE[address] [facility] [place], [place] [address] (Wo rk) documented as of [...] 160 65 - 199 [place] mg/dL [facility] Comment: Supplemental ranges: <140 mg/dL before meals <180 mg/dL all other times of the day Specimen Anatomical Collection Method Collection Time Receive d Time (Source) Location / / Volume Laterality Blood specimen 08/16/2017 7:28 AM 018 7:28 (specimen) EST AM EST Yonathan Smith MD POINT OF CARE TEST ORDERABLE S Performing Organization Address City/State/ZIP [place] [address] (ABNORMAL) Differential, Automated (08/16/2017 5:08 AM EST) [facility] Method Time Signature Neutrophils % 73.9 % [facility] Neutr Abs (ANC) 5.37 1.70 - [facility] 6.10 [facility] x10(3)/[facility] LABORATORY Lymphocytes % 10.1 % [facility] Lymphocytes Abs 0.7 (L) 0.9 - 3.2 [facility] x10(3)/[facility] LABORATORY Monocytes % 10.1 % [facility] Monocyte Abs 0.7 0.3 - 0.9 [facility] x10(3)/[facility] LABORATORY Eosinophils % 5.1 % [facility] Eosinophils Abs 0.4 0.0 - 0.4 [facility] x10(3)/[facility] LABORATORY Basophils % 0.4 % [facility] Basophils Abs 0.0 0.0 - 0.1 [facility] x10(3)/[facility] LABORATORY Immature Gran % 0.40 [...] Gran Abs 0.03 0.00 - 0.04 x10(3)/[facility] Y [facility] LABORATORY Specimen Anatomical Collection Method Collection Time Receive d Time (Source) Location / / Volume Laterality Blood specimen 08/16/2017 5:08 AM 018 5:20 (specimen) EST AM EST Resulting Agency Comment Spec In Lab Yonathan Smith MD HEMATOLOGY ORDERABLES Performing Organization Address City/State/ZIP [place] [address] (ABNORMAL) Hemogram (08/16/2017 5:08 AM EST) Analysis Performed At Patho logist Time Signature WBC 7.3 4.0 - 9.5 [place] x10(3)/[facility] LABORATORY RBC 3.36 (L) 4.58 - [place] 5.54 [facility] x10(6)/[facility] LABORATORY Hemoglobin 9.7 (L) 13.7 - [facility] 16.5 gm/dL [facility] LAB[facility] Hematocrit 30.3 (L) 40.5 - [place] 48.5 % [facility] MCV 90.2 82.9 - [facility] RYAN 93.1 [facility] LABORATORY MCH 28.9 27.5 - [place] 32.1 pg [facility] MCHC 32.0 32.0 - [place] 35.7 gm/dL [facility] Platelets 282 145 - 357 [facility] x10(3)/[facility] LABORATORY RDWSD 53.9 (H) 36.0 - [place] 45.0 [facility] LABORATORY RDWCV 16.5 (H) 11.4 - [place] 13.8 % [facility] LABORATORY MPV 9.0 7.6 - 12.9 [place] [facility] LABORATORY nRBC % Auto 0.0 % [facility] nRBC Abs Auto 0.000 0.000 - [place] 0.000 [facility] x10(3)/[facility] LABORATORY Specimen Anatomical Collection Method Collection Time Receive d Time (Source) Location / / Volume Laterality Blood specimen 08/16/2017 5:08 AM 018 5:20 (specimen) EST AM EST Resulting Agency Comment Spec In Lab Yonathan Smith MD HEMATOLOGY ORDERABLES Performing Organization Address City/State/ZIP Code Phon e Number [place] [id number] (ABNORMAL) Basic Metabolic Panel (non-fasting) (08/16/2017 5:08 AM EST) P athologist Signature Glucose Lvl 141 65 - 199 [facility] mg/dL [facility] LAB[facility]ORY Comment: [...] or in patients with acute kidney failure. [email or web address] Specimen Anatomical Collection Method Collection Time Receive d Time (Source) Location / / Volume Laterality Blood specimen 08/16/2017 5:08 AM 018 5:20 (specimen) EST AM EST Resulting Agency Comment Spec In Lab Yonathan Smith MD CHEMISTRY ORDERABLES Performing Organization Address City/State/[place] [address] (ABNORMAL) Prothrombin Time (08/16/2017 [...] [facility] [place]/ZIP Code Phon e Number [address] POCT Glucose (08/16/2017 4:09 AM EST) athologist Signature POC Glucose 147 65 - 199 [facility] mg/dL [facility] LABORATORY Comment: Supplemental ranges: <140 mg/dL [...] [facility] [place]/ZIP Code Phon e Number [address] POCT Glucose (08/15/2017 11:56 PM EST) athologist Signature POC Glucose 176 65 - 199 [facility] mg/dL [facility] LABORATORY Comment: Supplemental ranges: <140 mg/dL [...] [facility] [place]/ZIP Code Phon e Number [address] POCT Glucose (08/15/2017 8:05 PM EST) athologist Signature POC Glucose 136 65 - 199 [facility] mg/dL [facility] LABORATORY Comment: Supplemental ranges: <140 mg/dL before meals <180 mg/dL all other times of the day Specimen Anatomical Collection Method Collection Time Receive d Time (Source) Location / / Volume Laterality Blood specimen 08/15/2017 8:05 PM 018 8:05 (specimen) EST PM EST Yonathan Smith MD POINT OF CARE TEST ORDERABLE S Performing Organization Address City/State/[place] [address] (ABNORMAL) POCT Glucose (08/15/2017 4:50 PM EST) athologist Signature POC Glucose 232 (H) 65 - 199 [facility] mg/dL [facility] LABORATORY Comment: Supplemental ranges: <140 mg/dL before meals <180 mg/dL all other times of the day Specimen Anatomical Collection Method Collection Time Receive d Time (Source) Location / / Volume Laterality Blood specimen 08/15/2017 4:50 PM 018 4:50 (specimen) EST PM EST Yonathan Smith MD POINT OF CARE TEST ORDERABLE S Performing Organization Address City/State/[place] [address] POCT Glucose (08/15/2017 12:04 PM EST) athologist Signature POC Glucose 135 65 - 199 [facility] mg/dL [facility] LABORATORY Comment: Supplemental ranges: <140 mg/dL before meals <180 mg/dL all other times of the day Specimen Anatomical Collection Method Collection Time Receive d Time (Source) Location / / Volume Laterality Blood specimen 08/15/2017 12:04 8 (specimen) PM EST 12:04 PM EST Yonathan Smith MD POINT OF CARE TEST ORDERABLE S Performing Organization Address City/State/[place] [address] POCT Glucose (08/15/2017 7:36 AM EST) P athologist Signature POC Glucose 124 65 - 199 [facility] mg/dL [facility] LABORATORY Comment: Supplemental ranges: <140 mg/dL before meals <180 mg/dL all other times of the day Specimen Anatomical Collection Method Collection Time Receive d Time (Source) Location / / Volume Laterality Blood specimen 08/15/2017 7:36 AM 018 7:36 (specimen) EST AM EST Yonathan Smith MD POINT OF CARE TEST ORDERABLE S Performing Organization Address City/State/ZIP [place] [address] (ABNORMAL) Differential, Automated (08/15/2017 6:22 AM EST) Patholo gist Method Time Signature Neutrophils % 76.1 % [facility] LABORATORY Neutr Abs (ANC) 6.62 (H) 1.70 - [facility] 6.10 [facility] x10(3)/[facility] L LABORATORY Lymphocytes % 9.3 % [facility] LABORATORY Lymphocytes Abs 0.8 (L) 0.9 - 3.2 [facility] x10(3)/[facility] LABORATORY Monocytes % 9.4 % [facility] LABORATORY Monocyte Abs 0.8 0.3 - 0.9 [facility] x10(3)/[facility] LABORATORY Eosinophils % 4.0 % [facility] LABORATORY Eosinophils Abs 0.4 0.0 - 0.4 [facility] x10(3)/[facility] LABORATORY Basophils % 0.6 % [facility] LABORATORY Basophils Abs 0.0 0.0 - 0.1 [facility] x10(3)/[facility] LABORATORY Immature Gran % 0.60 % [...] Address City/State/ZIP [place] [address] (ABNORMAL) Hemogram (08/15/2017 6:22 AM EST) Analysis Performed At Patho logist Time Signature WBC 8.7 4.0 - 9.5 [facility] x10(3)/[facility] LABORATORY RBC 3.21 (L) 4.58 - [facility] 5.54 [facility] x10(6)/[facility] LABORATORY Hemoglobin 9.1 (L) 13.7 - [facility] 16.5 gm/dL [facility] LABORATORY Hematocrit 29.0 (L) 40.5 - [facility] 48.5 % [facility] LABORATORY MCV 90.3 82.9 - [facility] 93.1 [facility] LABORATORY MCH 28.3 27.5 - [facility] R[facility]AN 32.1 pg [facility] LABORATORY MCHC 31.4 (L) 32.0 - [facility] 35.7 gm/dL [facility] LABORATORY Platelets 254 145 - 357 [facility] x10(3)/[facility] LABORATORY RDWSD 53.9 (H) 36.0 - [facility] RYAN 45.0 [facility] LABORATORY RDWCV 16.3 (H) 11.4 - [facility] R[facility]AN 13.8 % [facility] LABORATORY MPV 8.8 7.6 - 12.9 [facility] LABORATORY nRBC % Auto 0.0 % [facility] LABORATORY nRBC Abs Auto 0.000 0.000 - [facility] 0.000 [facility] x10(3)/[facility] LABORATORY Specimen Anatomical Collection Method Collection Time Receive d Time (Source) Location / / Volume Laterality Blood specimen 08/15/2017 6:22 AM 018 6:33 (specimen) EST AM EST Resulting Agency Comment Spec In Lab Yonathan Smith MD HEMATOLOGY ORDERABLES Performing Organization Address City/State/ZIP [place] [address] (ABNORMAL) Basic Metabolic Panel (non-fasting) (08/15/2017 6:22 AM EST) P athologist Signature Glucose Lvl 118 65 - 199 [facility] mg/dL [facility] LABORATORY Comment: [...] or in patients with acute kidney failure. [email or web address] Specimen Anatomical Collection Method Collection Time Receive d Time (Source) Location / / Volume Laterality Blood specimen 08/15/2017 6:22 AM 018 6:33 (specimen) EST AM EST Resulting Agency Comment Spec In Lab Yonathan Smith MD CHEMISTRY ORDERABLES Performing Organization Address City/State/[place] [address] (ABNORMAL) Prothrombin Time (08/15/2017 [...] [facility] [place] [address] POCT Glucose (08/15/2017 4:33 AM EST) athologist Signature POC Glucose 164 65 - 199 [facility] mg/dL [facility] LABORATORY Comment: Supplemental ranges: <140 mg/dL before meals <180 mg/dL all other times of the day Specimen Anatomical Collection Method Collection Time Receive d Time (Source) Location / / Volume Laterality Blood specimen 08/15/2017 4:33 AM 018 4:33 (specimen) EST AM EST Yonathan Smith MD POINT OF CARE TEST ORDERABLE S Performing Organization Address City/State/[place] [address] POCT Glucose (08/15/2017 12:12 AM EST) athologist Signature POC Glucose 89 65 - 199 [facility] mg/dL [facility] LABORATORY Comment: Supplemental ranges: <140 mg/dL before meals <180 mg/dL all other times of the day Specimen Anatomical Collection Method Collection Time Receive d Time (Source) Location / / Volume Laterality Blood specimen 08/15/2017 12:12 8 (specimen) AM EST 12:12 AM EST Yonathan Smith MD POINT OF CARE TEST ORDERABLE S Performing Organization Address City/State/[place] [address] (ABNORMAL) POCT Glucose (08/14/2017 8:07 PM EST) athologist Signature POC Glucose 204 (H) 65 - 199 [facility] mg/dL [facility] LABORATORY Comment: Supplemental ranges: <140 mg/dL before meals <180 mg/dL all other times of the day Specimen Anatomical Collection Method Collection Time Receive d Time (Source) Location / / Volume Laterality Blood specimen 08/14/2017 8:07 PM 018 8:07 (specimen) EST PM EST Yonathan Smith MD POINT OF CARE TEST ORDERABLE S Performing Organization Address City/State/[place] [address] POCT Glucose (08/14/2017 5:11 PM EST) athologist Signature POC Glucose 174 65 - 199 [facility] mg/dL [facility] LABORATORY Comment: Supplemental ranges: <140 mg/dL before meals <180 mg/dL all other times of the day Specimen Anatomical Collection Method Collection Time Receive d Time (Source) Location / / Volume Laterality Blood specimen 08/14/2017 5:11 PM 018 5:11 (specimen) EST PM EST Yonathan Smith MD POINT OF CARE TEST ORDERABLE S Performing Organization Address City/State/[place] [address] POCT Glucose (08/14/2017 12:10 PM EST) athologist Signature POC Glucose 141 65 - 199 [facility] mg/dL [facility] LABORATORY Comment: Supplemental ranges: <140 mg/dL before meals <180 mg/dL all other times of the day Specimen Anatomical Collection Method Collection Time Receive d Time (Source) Location / / Volume Laterality Blood specimen 08/14/2017 12:10 8 (specimen) PM EST 12:10 PM EST Yonathan Smith MD POINT OF CARE TEST ORDERABLE S Performing Organization Address City/State/[place] [address] POCT Glucose (08/14/2017 8:07 AM EST) P athologist Signature POC Glucose 158 65 - 199 [facility] mg/dL [facility] LABORATORY Comment: Supplemental ranges: <140 mg/dL before meals <180 mg/dL all other times of the day Specimen Anatomical Collection Method Collection Time Receive d Time (Source) Location / / Volume Laterality Blood specimen 08/14/2017 8:07 AM 018 8:07 (specimen) EST AM EST Yonathan Smith MD POINT OF CARE TEST ORDERABLE S Performing Organization Address City/State/[place] [address] (ABNORMAL) Differential, Automated (08/14/2017 4:52 AM EST) Patholo gist Method Time Signature Neutrophils % 78.6 % [facility] LABORATORY Neutr Abs (ANC) 7.70 (H) 1.70 - [facility] 6.10 [facility] x10(3)/[facility] L LABORATORY Lymphocytes % 7.8 % [facility] LABORATORY Lymphocytes Abs 0.8 (L) 0.9 - 3.2 [facility] x10(3)/[facility] LABORATORY Monocytes % 8.8 % [facility] LABORATORY Monocyte Abs 0.9 0.3 - 0.9 [facility] x10(3)/[facility] LABORATORY Eosinophils % 4.0 % [facility] LABORATORY Eosinophils Abs 0.4 0.0 - 0.4 [facility] x10(3)/[facility] LABORATORY Basophils % 0.5 % [facility] LABORATORY Basophils Abs 0.0 0.0 - 0.1 [facility] x10(3)/[facility] LABORATORY Immature Gran % 0.30 % [...] Abs 0.03 0.00 - 0.04 x10(3)/[facility] LABORATORY Specimen Anatomical Collection Method Collection Time Receive d Time (Source) Location / / Volume Laterality Blood specimen 08/14/2017 4:52 AM 018 5:08 (specimen) EST AM EST Resulting Agency Comment Spec In Lab Yonathan Smith MD HEMATOLOGY ORDERABLES Performing Organization Address City/State/ZIP [place] [address] (ABNORMAL) Hemogram (08/14/2017 4:52 AM EST) Analysis Performed At Patho logist Time Signature WBC 9.8 (H) 4.0 - 9.5 [facility] x10(3)/[facility] LABORATORY RBC 3.32 (L) 4.58 - [facility] 5[facility] x10(6)/[facility] LABORATORY Hemoglobin 9.5 (L) 13.7 - [facility] 16.5 gm/dL [facility] LABORATORY Hematocrit 30.3 (L) 40.5 - [facility] 48.5 % [facility] LABORATORY MCV 91.3 82.9 - [facility] 93.1 [facility] LABORATORY MCH 28.6 27.5 - [facility] R[facility]AN 32.1 pg [facility] LABORATORY MCHC 31.4 (L) 32.0 - [facility] 35.7 gm/dL [facility] LABORATORY Platelets 263 145 - 357 [facility] x10(3)/[facility] LABORATORY RDWSD 54.8 (H) 36.0 - [facility] 45.0 [facility] LABORATORY RDWCV 16.5 (H) 11.4 - [facility] 13.8 % [facility] LABORATORY MPV 9.1 7.6 - 12.9 [facility] LABORATORY nRBC % Auto 0.0 % [facility] LABORATORY nRBC Abs Auto 0.000 0.000 - [facility] 0.000 [facility] x10(3)/[facility] LABORATORY Specimen Anatomical Collection Method Collection Time Receive d Time (Source) Location / / Volume Laterality Blood specimen 08/14/2017 4:52 AM 018 5:08 (specimen) EST AM EST Resulting Agency Comment Spec In Lab Yonathan Smith MD HEMATOLOGY ORDERABLES Performing Organization Address City/State/ZIP [place] [address] (ABNORMAL) Prothrombin Time (08/14/2017 [...] Address City/State/ZIP [place] [address] (ABNORMAL) Basic Metabolic Panel (non-fasting) (08/14/2017 4:52 AM EST) P athologist Signature Glucose Lvl 135 65 - 199 [facility] mg/dL [facility] LABORATORY Comment: [...] or in patients with acute kidney failure. [email or web address] Specimen Anatomical Collection Method Collection Time Receive d Time (Source) Location / / Volume Laterality Blood specimen 08/14/2017 4:52 AM 018 5:08 (specimen) EST AM EST Resulting Agency Comment Spec In Lab Yonathan Smith MD CHEMISTRY ORDERABLES Performing Organization Address City/State/ZIP [place] [address] POCT Glucose (08/14/2017 3:56 AM EST) P athologist Signature POC Glucose 135 65 - 199 [facility] mg/dL [facility] LABORATORY Comment: Supplemental ranges: <140 mg/dL before meals <180 mg/dL all other times of the day Specimen Anatomical Collection Method Collection Time Receive d Time (Source) Location / / Volume Laterality Blood specimen 08/14/2017 3:56 AM 018 3:56 (specimen) EST AM EST Yonathan Smith MD POINT OF CARE TEST ORDERABLE S Performing Organization Address City/State/ZIP Code Phon e Number [address] POCT Glucose (08/13/2017 11:13 PM EST) athologist Signature POC Glucose 118 65 - 199 [facility] mg/dL [facility] LABORATORY Comment: Supplemental ranges: <140 mg/dL [...] [facility] [place] [address] (ABNORMAL) POCT Glucose (08/13/2017 8:08 PM EST) athologist Signature POC Glucose 204 (H) 65 - 199 [facility] mg/dL [facility] LABORATORY Comment: Supplemental ranges: <140 mg/dL before meals <180 mg/dL all other times of the day Specimen Anatomical Collection Method Collection Time Receive d Time (Source) Location / / Volume Laterality Blood specimen 08/13/2017 8:08 PM 018 8:08 (specimen) EST PM EST Yonathan Smith MD POINT OF CARE TEST ORDERABLE S Performing Organization Address City/State/[place] [address] POCT Glucose (08/13/2017 4:02 PM EST) athologist Signature POC Glucose 145 65 - 199 [facility] mg/dL [facility] LABORATORY Comment: Supplemental ranges: <140 mg/dL before meals <180 mg/dL all other times of the day Specimen Anatomical Collection Method Collection Time Receive d Time (Source) Location / / Volume Laterality Blood specimen 08/13/2017 4:02 PM 018 4:02 (specimen) EST PM EST Yonathan Smith MD POINT OF CARE TEST ORDERABLE S Performing Organization Address City/State/[place] [address] POCT Glucose (08/13/2017 11:31 AM EST) athologist Signature POC Glucose 179 65 - 199 [facility] mg/dL [facility] LABORATORY Comment: Supplemental ranges: <140 mg/dL [...] [facility] [place] [address] (ABNORMAL) POCT Glucose (08/13/2017 10:16 AM EST) athologist Signature POC Glucose 211 (H) 65 - 199 [facility] mg/dL [facility] LABORATORY Comment: Supplemental ranges: <140 mg/dL [...] [facility] [place] [address] JULIAN, legs, multiple levels (08/13/2017 7:42 AM EST) Component Value Ref Test Analysis Performed At Patholo gist Range Method Time Signature VB Text Department: Vascular Surgery Lab VASCUBASE Report Patient: [id number] (GREGORY HOANG) CPT: 55246 ICD10: I99.8 Referring Physician: YONATHAN SMITH ?? Indications: s/p R 1,2,3 toe amps with red left foot, need n ew baseline Diabetes mellitus: yes ICD10 Diagnosis Code: I99.8 Findings: Right ?Pressure (mm Hg) ?? JULIAN ??Waveform ?TBI ?? Brachial Artery ?138 ? Dorsalis Pedis (Ankle) Arter y ?132 ? 0.94 ??[place]- Biphasic ? Posterior Tibial (Ankle) Art anila ??154 ? 1.10 ??[place]-Biphasic ? Fourth Toe ? 67 ? 0.48 [...] 65 - 199 [facility] mg/dL [facility] LABORATORY Comment: Supplemental ranges: <140 mg/dL before meals <180 mg/dL all other times of the day Specimen Anatomical Collection Method Collection Time Receive d Time (Source) Location / / Volume Laterality Blood specimen 08/13/2017 7:33 AM 018 7:33 (specimen) EST AM EST Yonathan Smith MD POINT OF CARE TEST ORDERABLE S Performing Organization Address City/State/ZIP Code Phon e Number [place] [id number] (ABNORMAL) Differential, Automated (08/13/2017 5:33 AM EST) [facility] Method Time Signature Neutrophils % 77.8 % [facility] LABORATORY Neutr Abs (ANC) 7.83 (H) 1.70 - [facility] 6.10 [facility] x10(3)/[facility] L LABORATORY Lymphocytes % 8.4 % [facility] LABORATORY Lymphocytes Abs 0.8 (L) 0.9 - 3.2 [facility] x10(3)/[facility] LABORATORY Monocytes % 8.3 % [facility] LABORATORY Monocyte Abs 0.8 0.3 - 0.9 [facility] x10(3)/[facility] LABORATORY Eosinophils % 4.6 % [facility] LABORATORY Eosinophils Abs 0.5 (H) 0.0 - 0.4 [facility] x10(3)/[facility] LABORATORY Basophils % 0.5 % [facility] LABORATORY Basophils Abs 0.0 0.0 - 0.1 [facility] x10(3)/[facility] LABORATORY Immature Gran % 0.40 % [...] 0.04 0.00 - 0.04 x10(3)/[facility] LABORATORY Specimen Anatomical Collection Method Collection Time Receive d Time (Source) Location / / Volume Laterality Blood specimen 08/13/2017 5:33 AM 018 6:04 (specimen) EST AM EST Resulting Agency Comment Spec In Lab Yonathan Smith MD HEMATOLOGY ORDERABLES Performing Organization Address City/State/ZIP [place] [address] (ABNORMAL) Hemogram (08/13/2017 5:33 AM EST) Analysis Performed At Patho logist Time Signature WBC 10.1 (H) 4.0 - 9.5 [facility] x10(3)/[facility] LABORATORY RBC 3.21 (L) 4.58 - [facility] 5.54 [facility] x10(6)/[facility] LABORATORY Hemoglobin 9.2 (L) 13.7 - [facility] 16.5 gm/dL [facility] LABORATORY Hematocrit 29.6 (L) 40.5 - [facility] 48.5 % [facility] LABORATORY MCV 92.2 82.9 - [facility] 93.1 [facility] LABORATORY MCH 28.7 27.5 - [facility] pg [facility] LABORATORY MCHC 31.1 (L) 32.0 - [facility] 35.7 gm/dL [facility] LABORATORY Platelets 263 145 - 357 [facility] x10(3)/[facility] LABORATORY RDWSD 54.8 (H) 36.0 - [facility] 45.0 [facility] LABORATORY RDWCV 16.4 (H) 11.4 - [facility] 13.8 % [facility] LABORATORY MPV 9.2 7.6 - 12.9 [facility] LABORATORY nRBC % Auto 0.0 % [facility] LABORATORY nRBC Abs Auto 0.000 0.000 - [facility] 0.000 [facility] x10(3)/[facility] LABORATORY Specimen Anatomical Collection Method Collection Time Receive d Time (Source) Location / / Volume Laterality Blood specimen 08/13/2017 5:33 AM 018 6:04 (specimen) EST AM EST Resulting Agency Comment Spec In Lab Yonathan Smith MD HEMATOLOGY ORDERABLES Performing Organization Address City/State/Z[place] [address] (ABNORMAL) Prothrombin Time (08/13/2017 [...] Address City/State/Z[place] [address] (ABNORMAL) Basic Metabolic Panel (non-fasting) (08/13/2017 5:33 AM EST) athologist Signature Glucose Lvl 126 65 - 199 [facility] mg/dL [facility] LABORATORY Comment: [...] LABORATORY Estimated GFR >60 >=60 [facility] LABORATORY Comment: The reported eGFR should be multiplied b y 1.2 for patients. The MDRD is not an appropriate measure o f renal function for patients with body mass extremes or in patients with acute kidney failure. [email or web address] Specimen Anatomical Collection Method Collection Time Receive d Time (Source) Location / / Volume Laterality Blood specimen 08/13/2017 5:33 AM 018 6:04 (specimen) EST AM EST Resulting Agency Comment Spec In Lab Yonathan Smith MD CHEMISTRY ORDERABLES Performing Organization Address City/[facility]/ZIP Code Phon e Number [address] POCT Glucose (08/13/2017 4:29 AM EST) athologist Signature POC Glucose 111 65 - 199 [facility] mg/dL [facility] LABORATORY Comment: Supplemental ranges: <140 mg/dL [...] [facility] [place]/ZIP Code Phon e Number [address] POCT Glucose (08/12/2017 11:28 PM EST) athologist Signature POC Glucose 164 65 - 199 [facility] mg/dL [facility] LABORATORY Comment: Supplemental ranges: <140 mg/dL [...] [facility] [place] [address] (ABNORMAL) POCT Glucose (08/12/2017 7:40 PM EST) athologist Signature POC Glucose 209 (H) 65 - 199 [facility] mg/dL [facility] LABORATORY Comment: Supplemental ranges: <140 mg/dL before meals <180 mg/dL all other times of the day Specimen Anatomical Collection Method Collection Time Receive d Time (Source) Location / / Volume Laterality Blood specimen 08/12/2017 7:40 PM 018 7:40 (specimen) EST PM EST Yonathan Smith MD POINT OF CARE TEST ORDERABLE S Performing Organization Address City/State/ZIP Code Phon e Number [address] POCT Glucose (08/12/2017 4:24 PM EST) athologist Signature POC Glucose 161 65 - 199 [facility] mg/dL [facility] LABORATORY Comment: Supplemental ranges: <140 mg/dL before meals <180 mg/dL all other times of the day Specimen Anatomical Collection Method Collection Time Receive d Time (Source) Location / / Volume Laterality Blood specimen 08/12/2017 4:24 PM 018 4:24 (specimen) EST PM EST Yonathan Smith MD POINT OF CARE TEST ORDERABLE S Performing Organization Address City/State/[place] [address] POCT Glucose (08/12/2017 12:00 PM EST) athologist Signature POC Glucose 167 65 - 199 [place] mg/dL [facility] LABORATORY Comment: Supplemental ranges: <140 mg/dL before meals <180 mg/dL all other times of the day Specimen Anatomical Collection Method Collection Time Receive d Time (Source) Location / / Volume Laterality Blood specimen 08/12/2017 12:00 8 (specimen) PM EST 12:00 PM EST Yonathan Smith MD POINT OF CARE TEST ORDERABLE S Performing Organization Address City/State/[place] [address] POCT Glucose (08/12/2017 7:25 AM EST) P athologist Signature POC Glucose 152 65 - 199 [facility] mg/dL [facility] LABORATORY Comment: Supplemental ranges: <140 mg/dL before meals <180 mg/dL all other times of the day Specimen Anatomical Collection Method Collection Time Receive d Time (Source) Location / / Volume Laterality Blood specimen 08/12/2017 7:25 AM 018 7:25 (specimen) EST AM EST Yonathan Smith MD POINT OF CARE TEST ORDERABLE S Performing Organization Address City/State/ZIP Code Phon e Number [place] [id number] (ABNORMAL) Differential, Automated (08/12/2017 6:29 AM EST) Patholo gist Method Time Signature Neutrophils % 78.7 % [facility] LABORATORY Neutr Abs (ANC) 7.94 (H) 1.70 - [facility] 6.10 [facility] x10(3)/[facility] LABORATORY Lymphocytes % 8.8 % [facility] LABORATORY Lymphocytes Abs 0.9 0.9 - 3.2 [facility] x10(3)/[facility] LABORATORY Monocytes % 7.8 % [facility] LABORATORY Monocyte Abs 0.8 0.3 - 0.9 [facility] x10(3)/[facility] LABORATORY Eosinophils % 3.9 % [facility] LABORATORY Eosinophils Abs 0.4 0.0 - 0.4 [facility] x10(3)/[facility] LABORATORY Basophils % 0.3 % [facility] LABORATORY Basophils Abs 0.0 0.0 - 0.1 [facility] x10(3)/[facility] LABORATORY Immature Gran % 0.50 % [...] Address City/State/ZIP [place] [address] (ABNORMAL) Hemogram (08/12/2017 6:29 AM EST) Analysis Performed At Patho logist Time Signature WBC 10.1 (H) 4.0 - 9.5 [facility] x10(3)/[facility] LABORATORY RBC 3.02 (L) 4.58 - [facility] 5.54 [facility] x10(6)/[facility] LABORATORY Hemoglobin 8.7 (L) 13.7 - [facility] 16.5 gm/dL [facility] LABORATORY Hematocrit 28.1 (L) 40.5 - [facility] 48.5 % [facility] LABORATORY MCV 93.0 82.9 - [facility] 93.1 [facility] LABORATORY MCH 28.8 27.5 - [facility] 32.1 pg [facility] LABORATORY MCHC 31.0 (L) 32.0 - [facility] 35.7 gm/dL [facility] LABORATORY Platelets 223 145 - 357 [facility] x10(3)/[facility] LABORATORY RDWSD 56.1 (H) 36.0 - [facility] 45.0 [facility] LABORATORY RDWCV 16.4 (H) 11.4 - [facility] 13.8 % [facility] LABORATORY MPV 9.0 7.6 - 12.9 [facility] LABORATORY nRBC % Auto 0.0 % [facility] LABORATORY nRBC Abs Auto 0.000 0.000 - [place] 0.000 [facility] x10(3)/[facility] LABORATORY Specimen Anatomical Collection Method Collection Time Receive d Time (Source) Location / / Volume Laterality Blood specimen 08/12/2017 6:29 AM 018 6:38 (specimen) EST AM EST Resulting Agency Comment Spec In Lab Yonathan Smith MD HEMATOLOGY ORDERABLES Performing Organization Address City/[facility]/[place] [address] (ABNORMAL) Prothrombin Time (08/12/2017 [...] Organization Address City/State/[place] [address] (ABNORMAL) Basic Metabolic Panel (non-fasting) (08/12/2017 6:29 AM EST) athologist Signature Glucose Lvl 151 65 - 199 [facility] mg/dL [facility] LABORATORY Comment: [...] or in patients with acute kidney failure. [email or web address] Specimen Anatomical Collection Method Collection Time Receive d Time (Source) Location / / Volume Laterality Blood specimen 08/12/2017 6:29 AM 018 6:38 (specimen) EST AM EST Resulting Agency Comment Spec In Lab Yonathan Smith MD CHEMISTRY ORDERABLES Performing Organization Address City/[facility]/[place] [address] POCT Glucose (08/12/2017 4:08 AM EST) athologist Signature POC Glucose 181 65 - 199 [facility] mg/dL [facility] LABORATORY Comment: Supplemental ranges: <140 mg/dL [...] [facility] [place]/[place] [address] (ABNORMAL) POCT Glucose (08/12/2017 12:17 AM EST) athologist Signature POC Glucose 221 (H) 65 - 199 [facility] mg/dL [facility] LABORATORY Comment: Supplemental ranges: <140 mg/dL [...] [facility]/[place] [address] (ABNORMAL) POCT Glucose (08/11/2017 8:52 PM EST) athologist Signature POC Glucose 221 (H) 65 - 199 [place] mg/dL [facility] LABORATORY Comment: Supplemental ranges: <140 mg/dL [...] [facility]/[place] [address] POCT Glucose (08/11/2017 5:59 PM EST) athologist Signature POC Glucose 169 65 - 199 [place] mg/dL [facility] LABORATORY Comment: Supplemental ranges: <140 mg/dL before meals <180 mg/dL all other times of the day Specimen Anatomical Collection Method Collection Time Receive d Time (Source) Location / / Volume Laterality Blood specimen 08/11/2017 5:59 PM 018 5:59 (specimen) EST PM EST Yonathan Smith MD POINT OF CARE TEST ORDERABLE S Performing Organization Address City/State/[place] [address] (ABNORMAL) POCT Glucose (08/11/2017 4:08 PM EST) athologist Signature POC Glucose 240 (H) 65 - 199 [place] [facility] mg/dL [facility] LABORATORY Comment: Supplemental ranges: <140 mg/dL [...] [facility] [place]/ZIP Code Phon e Number [address] POCT Glucose (08/11/2017 12:04 PM EST) athologist Signature POC Glucose 182 65 - 199 [facility] mg/dL [facility] LABORATORY Comment: Supplemental ranges: <140 mg/dL [...] [facility] [place]/ZIP Code Phon e Number [address] POCT Glucose (08/11/2017 7:31 AM EST) athologist Signature POC Glucose 156 65 - 199 [facility] mg/dL [facility] LABORATORY Comment: Supplemental ranges: <140 mg/dL [...] [facility]/ZIP Code Phon e Number [address] (ABNORMAL) Differential, Automated (08/11/2017 6:16 AM EST) [facility] Time Signature Neutrophils % 83.7 % [facility] LABORATORY Neutr Abs (ANC) 10.76 (H) 1.70 - [facility] 6.10 [facility] x10(3)/[facility] LABORATORY Lymphocytes % 6.0 % [facility] LABORATORY Lymphocytes Abs 0.8 (L) 0.9 - 3.2 [facility] x10(3)/[facility] LABORATORY Monocytes % 7.5 % [facility] LABORATORY Monocyte Abs 1.0 (H) 0.3 - 0.9 [facility] x10(3)/[facility] LABORATORY Eosinophils % 2.0 % [facility] LABORATORY Eosinophils Abs 0.3 0.0 - 0.4 [facility] x10(3)/[facility] LABORATORY Basophils % 0.3 % [facility] LABORATORY Basophils Abs 0.0 0.0 - 0.1 [facility] x10(3)/[facility] LABORATORY Immature Gran % 0.50 % [...] Address City/State/ZIP [place] [address] (ABNORMAL) Hemogram (08/11/2017 6:16 AM EST) Analysis Performed At Patho logist Time Signature WBC 12.9 (H) 4.0 - 9.5 [facility] x10(3)/[facility] LABORATORY RBC 3.28 (L) 4.58 - [facility] 5.54 [facility] x10(6)/[facility] LABORATORY Hemoglobin 9.5 (L) 13.7 - [place] [facility] 16.5 gm/dL [facility] LABORATORY Hematocrit 29.8 (L) 40.5 - [place] [facility] 48.5 % [facility] LABORATORY MCV 90.9 82.9 - [facility] 93.1 [facility] LABORATORY MCH 29.0 27.5 - [place] 32.1 pg [facility] LABORATORY MCHC 31.9 (L) 32.0 - [place] [facility] 35.7 gm/dL [facility] LABORATORY Platelets 236 145 - 357 [facility] x10(3)/[facility] LABORATORY RDWSD 53.5 (H) 36.0 - [place] 45.0 [facility] LABORATORY RDWCV 16.3 (H) 11.4 - [facility] 13.8 % [facility] LABORATORY MPV 8.8 7.6 - 12.9 [facility] LABORATORY nRBC % Auto 0.0 % [facility] LABORATORY nRBC Abs Auto 0.000 0.000 - [facility] 0.000 [facility] x10(3)/[facility] LABORATORY Specimen Anatomical Collection Method Collection Time Receive d Time (Source) Location / / Volume Laterality Blood specimen 08/11/2017 6:16 AM 018 6:24 (specimen) EST AM EST Resulting Agency Comment Spec In Lab Yonathan Simth MD HEMATOLOGY ORDERABLES Performing Organization Address City/State/ZIP [place] [address] (ABNORMAL) Prothrombin Time (08/11/2017 [...] Address City/State/Z[place] [address] Basic Metabolic Panel (non-fasting) (08/11/2017 6:16 AM EST) P athologist Signature Glucose Lvl 139 65 - 199 [facility] mg/dL [facility] LABORATORY Comment: [...] or in patients with acute kidney failure. [email or web address] Specimen Anatomical Collection Method Collection Time Receive d Time (Source) Location / / Volume Laterality Blood specimen 08/11/2017 6:16 AM 018 6:24 (specimen) EST AM EST Resulting Agency Comment Spec In Lab Yonathan Smith MD CHEMISTRY ORDERABLES Performing Organization Address City/State/ZIP Code Phon e Number [address] POCT Glucose (08/11/2017 4:07 AM EST) athologist Signature POC Glucose 162 65 - 199 [place] mg/dL [facility] LABORATORY Comment: Supplemental ranges: <140 mg/dL [...] [facility] [place]/ZIP Code Phon e Number [address] POCT Glucose (08/10/2017 11:59 PM EST) athologist Signature POC Glucose 166 65 - 199 [place] mg/dL [facility] LABORATORY Comment: Supplemental ranges: <140 mg/dL before meals <180 mg/dL all other times of the day Specimen Anatomical Collection Method Collection Time Receive d Time (Source) Location / / Volume Laterality Blood specimen 08/10/2017 11:59 8 (specimen) PM EST 11:59 PM EST Yonathan Smith MD POINT OF CARE TEST ORDERABLE S Performing Organization Address City/State/ZIP Code Phon e Number [address] POCT Glucose (08/10/2017 8:12 PM EST) athologist Signature POC Glucose 156 65 - 199 [place] mg/dL [facility] LABORATORY Comment: Supplemental ranges: <140 mg/dL before meals <180 mg/dL all other times of the day Specimen Anatomical Collection Method Collection Time Receive d Time (Source) Location / / Volume Laterality Blood specimen 08/10/2017 8:12 PM 018 8:12 (specimen) EST PM EST Yonathan Smith MD POINT OF CARE TEST ORDERABLE S Performing Organization Address City/State/ZIP Code Phon e Number [place] [id number] Drive (ABNORMAL) POCT Glucose (08/10/2017 4:42 PM EST) P athologist Signature POC Glucose 211 (H) 65 - 199 [facility] mg/dL [facility] LABORATORY Comment: Supplemental ranges: <140 mg/dL before meals <180 mg/dL all other times of the day Specimen Anatomical Collection Method Collection Time Receive d Time (Source) Location / / Volume Laterality Blood specimen 08/10/2017 4:42 PM 018 4:42 (specimen) EST PM EST Yonathan Smith MD POINT OF CARE TEST ORDERABLE S Performing Organization Address City/State/ZIP Code Phon e Number [address] (ABNORMAL) Differential, Automated (08/10/2017 2:30 PM EST) Patholo gist Method Time Signature Neutrophils % 87.6 % [facility] LABORATORY Neutr Abs (ANC) 9.90 (H) 1.70 - [facility] 6.10 [facility] x10(3)/[facility] L LABORATORY Lymphocytes % 4.3 % [facility] LABORATORY Lymphocytes Abs 0.5 (L) 0.9 - 3.2 [facility] x10(3)/[facility] LABORATORY Monocytes % 6.0 % [facility] LABORATORY Monocyte Abs 0.7 0.3 - 0.9 [facility] x10(3)/[facility] LABORATORY Eosinophils % 1.1 % [facility] LABORATORY Eosinophils Abs 0.1 0.0 - 0.4 [facility] x10(3)/[facility] LABORATORY Basophils % 0.4 % [facility] LABORATORY Basophils Abs 0.0 0.0 - 0.1 [facility] x10(3)/[facility] LABORATORY Immature Gran % 0.60 % [...] Address City/State/ZIP [place] [address] (ABNORMAL) Hemogram (08/10/2017 2:30 PM EST) Analysis Performed At Patho logist Time Signature WBC 11.3 (H) 4.0 - 9.5 [facility] x10(3)/[facility] LABORATORY RBC 3.13 (L) 4.58 - [facility] 5.54 [facility] x10(6)/[facility] LABORATORY Hemoglobin 8.9 (L) 13.7 - [facility]/dL [facility] LABORATORY Hematocrit 28.4 (L) 40.5 - [facility] 48.5 % [facility] LABORATORY MCV 90.7 82.9 - [facility] 93.1 [facility] LABORATORY MCH 28.4 27.5 - [facility] 32.1 pg [facility] LABORATORY MCHC 31.3 (L) 32.0 - [facility] 35.7 gm/dL [facility] LABORATORY Platelets 213 145 - 357 [facility] x10(3)/[facility] LABORATORY RDWSD 53.7 (H) 36.0 - [facility] 45.0 [facility] LABORATORY RDWCV 16.4 (H) 11.4 - [facility] 13.8 % [facility] LABORATORY MPV 8.9 7.6 - 12.9 [facility] LABORATORY nRBC % Auto 0.0 % [facility] LABORATORY nRBC Abs Auto 0.000 0.000 - [facility] [employer] 0.000 [facility] x10(3)/[facility] LABORATORY Specimen Anatomical Collection Method Collection Time Receive d Time (Source) Location / / Volume Laterality Blood specimen 08/10/2017 2:30 PM 018 2:48 (specimen) EST PM EST Resulting Agency Comment Spec In Lab Yonathan Smith MD HEMATOLOGY ORDERABLES Performing Organization Address City/[facility]/ZIP Code Phon e Number [address] (ABNORMAL) POCT Glucose (08/10/2017 1:50 PM EST) athologist Signature POC Glucose 243 (H) 65 - 199 [facility] mg/dL [facility] LABORATORY Comment: Supplemental ranges: <140 mg/dL [...] [facility] [place]/ZIP Code Phon e Number [address] POCT Glucose (08/10/2017 11:21 AM EST) athologist Signature POC Glucose 156 65 - 199 [facility] mg/dL [facility] LABORATORY Comment: Supplemental ranges: <140 mg/dL [...] [facility] [place]/ZIP Code Phon e Number [address] (ABNORMAL) Differential, Automated (08/10/2017 10:28 AM EST) [facility] Time Signature Neutrophils % 85.3 % [facility] LABORATORY Neutr Abs (ANC) 9.43 (H) 1.70 - [facility] 6.10 [facility] x10(3)/[facility] L LABORATORY Lymphocytes % 5.5 % [facility] LABORATORY Lymphocytes Abs 0.6 (L) 0.9 - 3.2 [facility] x10(3)/[facility] LABORATORY Monocytes % 5.9 % [facility] LABORATORY Monocyte Abs 0.6 0.3 - 0.9 [facility] x10(3)/[facility] LABORATORY Eosinophils % 2.1 % [facility] LABORATORY Eosinophils Abs 0.2 0.0 - 0.4 [facility] x10(3)/[facility] LABORATORY Basophils % 0.4 % [facility] LABORATORY Basophils Abs 0.0 0.0 - 0.1 [facility] x10(3)/[facility] LABORATORY Immature Gran % 0.80 % [...] Address City/State/ZIP [place] [address] (ABNORMAL) Hemogram (08/10/2017 10:28 AM EST) Analysis Performed At Patho logist Time Signature WBC 11.0 (H) 4.0 - 9.5 [facility] x10(3)/[facility] LABORATORY RBC 3.02 (L) 4.58 - [facility] 5.54 [facility] x10(6)/[facility] LABORATORY Hemoglobin 8.8 (L) 13.7 - [facility] 16.5 gm/dL [facility] LABORATORY Hematocrit 28.1 (L) 40.5 - [facility] 48.5 % [facility] LABORATORY MCV 93.0 82.9 - [facility] 93.1 [facility] LABORATORY MCH 29.1 27.5 - [facility] 32.1 pg [facility] LABORATORY MCHC 31.3 (L) 32.0 - [facility] 35.7 gm/dL [facility] LABORATORY Platelets 207 145 - 357 [facility] x10(3)/[facility] LABORATORY RDWSD 55.3 (H) 36.0 - [facility] 45.0 [facility] LABORATORY RDWCV 16.4 (H) 11.4 - [facility] 13.8 % [facility] LABORATORY MPV 9.0 7.6 - 12.9 [facility] LABORATORY nRBC % Auto 0.0 % [facility] nRBC Abs Auto 0.000 0.000 - [place] 0.000 [facility] x10(3)/[facility] LABORATORY Specimen Anatomical Collection Method Collection Time Receive d Time (Source) Location / / Volume Laterality Blood specimen 08/10/2017 10:28 8 (specimen) AM EST 10:35 AM EST Resulting Agency Comment Spec In Lab Yonathan Smith MD HEMATOLOGY ORDERABLES Performing Organization Address City/State/ZIP [place] [address] VS Angiogram/intervention (vascular) (08/10/2017 [...] 2.5x80 5. Completion RLE angiogram 6. L [employer] angiogram 7. 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 L [employer] access in the distal L [employer]. - Closure device: Mynx Technical Procedure: ?The [...] for a 45cm 5F Destination. V18 and Mcqueeney a nd QuickCross catheters were used to [...] bifurcation. Access appeared in the distal R [employer]RI[employer]. Closure and sheath removal was performed with [...] 2.5x80 5. Completion RLE angiogram 6. L [employer] angiogram 7. 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 L [employer] access in the distal L [employer]ACH[employer]. - Closure device: Mynx Technical Procedure: The [...] for a 45cm 5F Destination. V18 and Mcqueeney a nd QuickCross catheters were used to [...] bifurcation. Access appeared in the distal R [employer]. Closure and sheath removal was performed with [...] (ABNORMAL) Differential, Automated (08/10/2017 5:50 AM EST) [facility] Method Time Signature Neutrophils % 80.1 % [facility] LABORATORY Neutr Abs (ANC) 9.01 (H) 1.70 - [facility] 6.10 [facility] x10(3)/[facility] LABORATORY Lymphocytes % 8.8 % [facility] LABORATORY Lymphocytes Abs 1.0 0.9 - 3.2 [facility] x10(3)/[facility] LABORATORY Monocytes % 8.3 % [facility] LABORATORY Monocyte Abs 0.9 0.3 - 0.9 [facility] x10(3)/[facility] LABORATORY Eosinophils % 2.0 % [facility] LABORATORY Eosinophils Abs 0.2 0.0 - 0.4 [facility] x10(3)/[facility] LABORATORY Basophils % 0.4 % [facility] LABORATORY Basophils Abs 0.0 0.0 - 0.1 [facility] x10(3)/[facility] LABORATORY Immature Gran % 0.40 % [...] Organization Address City/State/[place] [address] (ABNORMAL) Hemogram (08/10/2017 5:50 AM EST) Analysis Performed At Patho logist Time Signature WBC 11.3 (H) 4.0 - 9.5 [facility] x10(3)/[facility] LABORATORY RBC 3.15 (L) 4.58 - [facility] 5.54 [facility] x10(6)/[facility] LABORATORY Hemoglobin 8.9 (L) 13.7 - [facility] 16.5 gm/dL [facility] LABORATORY Hematocrit 29.0 (L) 40.5 - [facility] 48.5 % [facility] LABORATORY MCV 92.1 82.9 - [facility] 93.1 [facility] LABORATORY MCH 28.3 27.5 - [facility] 32.1 pg [facility] LABORATORY MCHC 30.7 (L) 32.0 - [facility] 35.7 gm/dL [facility] LABORATORY Platelets 231 145 - 357 [facility] x10(3)/[facility] RDWSD 53.9 (H) 36.0 - [facility] 45.0 [facility] LABORATORY RDWCV 16.2 (H) 11.4 - [facility] [facility] 13.8 % [facility] LABORATORY MPV 8.7 7.6 - 12.9 [facility] LABORATORY nRBC % Auto 0.0 % [facility] LABORATORY nRBC Abs Auto 0.000 0.000 - [facility] 0.000 [facility] x10(3)/[facility] LABORATORY Specimen Anatomical Collection Method Collection Time Receive d Time (Source) Location / / Volume Laterality Blood specimen 08/10/2017 5:50 AM 018 5:59 (specimen) EST AM EST Resulting Agency Comment Spec In Lab Yonathan Smith MD HEMATOLOGY ORDERABLES Performing Organization Address City/State/ZIP [place] [address] (ABNORMAL) Basic Metabolic Panel (non-fasting) (08/10/2017 5:50 AM EST) P athologist Signature Glucose Lvl 135 65 - 199 [facility] mg/dL [facility] LABORATORY Comment: [...] or in patients with acute kidney failure. [email or web address] Specimen Anatomical Collection Method Collection Time Receive d Time (Source) Location / / Volume Laterality Blood specimen 08/10/2017 5:50 AM 018 5:59 (specimen) EST AM EST Resulting Agency Comment Spec In Lab Yonathan Smith MD CHEMISTRY ORDERABLES Performing Organization Address [facility] [place] [address] (ABNORMAL) Prothrombin Time (08/10/2017 [...] Performing Organization Address City/[facility] [place] [address] (ABNORMAL) POCT Glucose (08/10/2017 4:01 AM EST) athologist Signature POC Glucose 206 (H) 65 - 199 [facility] mg/dL [facility] LABORATORY Comment: Supplemental ranges: <140 mg/dL before meals <180 mg/dL all other times of the day Specimen Anatomical Collection Method Collection Time Receive d Time (Source) Location / / Volume Laterality Blood specimen 08/10/2017 4:01 AM 018 4:01 (specimen) EST AM EST Yonathan Smith MD POINT OF CARE TEST ORDERABLE S Performing Organization Address City/State/ZIP Code Phon e Number [address] POCT Glucose (08/10/2017 2:01 AM EST) athologist Signature POC Glucose 188 65 - 199 [facility] mg/dL [facility] LABORATORY Comment: Supplemental ranges: <140 mg/dL [...] [facility]/[place] [address] (ABNORMAL) POCT Glucose (08/09/2017 11:42 PM EST) athologist Signature POC Glucose 283 (H) 65 - 199 [facility] mg/dL [facility] LABORATORY Comment: Supplemental ranges: <140 mg/dL before meals <180 mg/dL all other times of the day Specimen Anatomical Collection Method Collection Time Receive d Time (Source) Location / / Volume Laterality Blood specimen 08/09/2017 11:42 8 (specimen) PM EST 11:42 PM EST Yonathan Smith MD POINT OF CARE TEST ORDERABLE S Performing Organization Address City/State/[place] [address] POCT Glucose (08/09/2017 8:55 PM EST) athologist Signature POC Glucose 182 65 - 199 [place] mg/dL [facility] LABORATORY Comment: Supplemental ranges: <140 mg/dL [...] [facility]/[place] [address] (ABNORMAL) APTT (08/09/2017 6:42 [...] [facility]/[place] [address] POCT Glucose (08/09/2017 4:41 PM EST) athologist Signature POC Glucose 195 65 - 199 [facility] mg/dL [facility] LABORATORY Comment: Supplemental ranges: <140 mg/dL [...] [facility]/[place] [address] POCT Glucose (08/09/2017 12:29 PM EST) athologist Signature POC Glucose 140 65 - 199 [facility] mg/dL [facility] LABORATORY Comment: Supplemental ranges: <140 mg/dL before meals <180 mg/dL all other times of the day Specimen Anatomical Collection Method Collection Time Receive d Time (Source) Location / / Volume Laterality Blood specimen 08/09/2017 12:29 8 (specimen) PM EST 12:29 PM EST Yonathan Smith MD POINT OF CARE TEST ORDERABLE S Performing Organization Address [facility]/ZIP Code Phon e Number [address] POCT Glucose (08/09/2017 9:59 AM EST) P athologist Signature POC Glucose 135 65 - 199 [facility] mg/dL [facility] LABORATORY Comment: Supplemental ranges: <140 mg/dL before meals <180 mg/dL all other times of the day Specimen Anatomical Collection Method Collection Time Receive d Time (Source) Location / / Volume Laterality Blood specimen 08/09/2017 9:59 AM 018 9:59 (specimen) EST AM EST Yonathan Smith MD POINT OF CARE TEST ORDERABLE S Performing Organization Address [facility]/ZIP Code Phon e Number [address] Specimen to Pathology (08/09/2017 [...] [facility]/[place] [address] Surgical Pathology Report (08/09/2017 8:40 AM EST) Component Value Ref Test Analysis Performed At Patholo gist Range Method Time Signature Surgical [id number] ? Location: [facility]; [facility]; A [facility] Report The signing pathologist has (i) [...] Henrique Flower Verified: ??08/13/2017 ?Pathologist Performed at: ??-[facility] Dept. of Pathology, [place], [place] CLINICAL INFORMATION Specimen Submitted: A - [...] Address City/State/ZIP [place] [address] Anaerobic Culture (08/09/2017 8:30 AM EST) [facility] Anna Lozabai Method Time Signature Anaerobic No anaerobic [facility] Culture organisms [facility] LABORATORY Specimen Anatomical Collection [...] [facility]/[place] [address] (ABNORMAL) Abscess/Wound Aspirate Culture (08/09/2017 8:30 AM EST) [facility] Method Time Signature Abscess/Wound Moderate mixed [facility] Aspirate bacterial SWANZEY Culture morphotypes [facility] normal LABORATORY cutaneous leroy (A) Gram Stain Rare White Blood Cells BARBARA Few Gram Positive Cocci in pairs SWANZEY () [facility] LABORATORY Organism Gram Positive BARBARA Cocci in pairs SWANZEY () [facility] LABORATORY Specimen Anatomical Collection Method Collection [...] [facility]/ZIP Code Phon e Number [place] [id number] POCT Glucose (08/09/2017 4:28 AM EST) P athologist Signature POC Glucose 128 65 - 199 [facility] mg/dL [facility] LABORATORY Comment: Supplemental ranges: <140 mg/dL before meals <180 mg/dL all other times of the day Specimen Anatomical Collection Method Collection Time Receive d Time (Source) Location / / Volume Laterality Blood specimen 08/09/2017 4:28 AM 018 4:28 (specimen) EST AM EST Yonathan Smith MD POINT OF CARE TEST ORDERABLE S Performing Organization Address City/State/[place] [address] ABORH Recheck Status (08/09/2017 1:10 AM EST) [facility] Method Time Signature ABORH Type Completed [facility] LABORATORY Specimen Anatomical Collection Method Collection Time Receive d Time (Source) Location / / Volume Laterality Blood specimen 08/09/2017 1:10 AM 018 1:35 (specimen) EST AM EST Resulting Agency Comment Spec In Lab Yonathan Smith MD BLOOD BANK ORDERABLES Performing Organization Address City/[facility]/[place] [address] Antibody screen (08/09/2017 1:10 AM EST) [facility] Method Time Signature Ab Screen Negative [facility] LABORATORY Expires at 08/12/2017 [facility] [id number] on: [facility] LABORATORY Specimen Anatomical Collection Method Collection Time Receive d Time (Source) Location / / Volume Laterality Blood specimen 08/09/2017 1:10 AM 018 1:35 (specimen) EST AM EST Resulting Agency Comment Spec In Lab Yonathan Smith MD BLOOD BANK ORDERABLES Performing Organization Address City/[facility]/[place] [address] ABO/Rh Typing (08/09/2017 1:10 [...] [facility]/[place] [address] (ABNORMAL) APTT (08/09/2017 1:10 [...] Address City/State/ZIP [place] [address] (ABNORMAL) Differential, Automated (08/09/2017 1:10 AM EST) [facility] gist Method Time Signature Neutrophils % 76.2 % [facility] LABORATORY Neutr Abs (ANC) 8.59 (H) 1.70 - [facility] 6.10 [facility] x10(3)/[facility] LABORATORY Lymphocytes % 11.0 % [facility] LABORATORY Lymphocytes Abs 1.2 0.9 - 3.2 [facility] x10(3)/[facility] LABORATORY Monocytes % 8.4 % [facility] LABORATORY Monocyte Abs 1.0 (H) 0.3 - 0.9 [facility] x10(3)/[facility] LABORATORY Eosinophils % 3.5 % [facility] LABORATORY Eosinophils Abs 0.4 0.0 - 0.4 [facility] x10(3)/[facility] LABORATORY Basophils % 0.5 % [facility] LABORATORY Basophils Abs 0.1 0.0 - 0.1 [facility] x10(3)/[facility] LABORATORY Immature Gran % 0.40 % [...] Address City/State/ZIP [place] [address] (ABNORMAL) Hemogram (08/09/2017 1:10 AM EST) Analysis Performed At Patho logist Time Signature WBC 11.3 (H) 4.0 - 9.5 [facility] x10(3)/[facility] LABORATORY RBC 3.47 (L) 4.58 - [facility] 5.54 [facility] x10(6)/[facility] LABORATORY Hemoglobin 10.0 (L) 13.7 - [facility] 16.5 gm/dL [facility] LABORATORY Hematocrit 31.9 (L) 40.5 - [facility] 48.5 % [facility] LABORATORY MCV 91.9 82.9 - [facility] 93.1 [facility] LABORATORY MCH 28.8 27.5 - [facility] RYAN 32.1 pg [facility] LABORATORY MCHC 31.3 (L) 32.0 - [facility] 35.7 gm/dL [facility] LABORATORY Platelets 234 145 - 357 [facility] x10(3)/[facility] LABORATORY RDWSD 54.0 (H) 36.0 - [facility] RYAN 45.0 [facility] LABORATORY RDWCV 16.2 (H) 11.4 - [facility] 13.8 % [facility] LABORATORY MPV 8.7 7.6 - 12.9 [facility] LABORATORY nRBC % Auto 0.0 % [facility] LABORATORY nRBC Abs Auto 0.000 0.000 - [place] 0.000 [facility] x10(3)/[facility] LABORATORY Specimen Anatomical Collection Method Collection Time Receive d Time (Source) Location / / Volume Laterality Blood specimen 08/09/2017 1:10 AM 018 1:19 (specimen) EST AM EST Resulting Agency Comment Spec In Lab Yonathan Smith MD HEMATOLOGY ORDERABLES Performing Organization Address [facility] [place] [address] (ABNORMAL) Prothrombin Time (08/09/2017 [...] Smith MD HEMATOLOGY ORDERABLES Performing Organization Address [facility] [place] [address] (ABNORMAL) Basic Metabolic Panel (non-fasting) (08/09/2017 1:10 AM EST) athologist Signature Glucose Lvl 108 65 - 199 [facility] mg/dL [facility] LABORATORY Comment: [...] or in patients with acute kidney failure. [email or web address] Specimen Anatomical Collection Method Collection Time Receive d Time (Source) Location / / Volume Laterality Blood specimen 08/09/2017 1:10 AM 018 1:19 (specimen) EST AM EST Resulting Agency Comment Spec In Lab Yonathan Smith MD CHEMISTRY ORDERABLES Performing Organization Address City/State/ZIP Code Phon e Number [address] POCT Glucose (08/09/2017 12:05 AM EST) athologist Signature POC Glucose 128 65 - 199 [facility] mg/dL [facility] LABORATORY Comment: Supplemental ranges: <140 mg/dL before meals <180 mg/dL all other times of the day Specimen Anatomical Collection Method Collection Time Receive d Time (Source) Location / / Volume Laterality Blood specimen 08/09/2017 12:05 8 (specimen) AM EST 12:05 AM EST Yonathan Smith MD POINT OF CARE TEST ORDERABLE S Performing Organization Address City/State/[place] [address] (ABNORMAL) POCT Glucose (08/08/2017 7:36 PM EST) athologist Signature POC Glucose 215 (H) 65 - 199 [facility] LABORATORY Comment: Supplemental ranges: <140 mg/dL [...] [facility]/[place] [address] (ABNORMAL) POCT Glucose (08/08/2017 6:23 PM EST) athologist Signature POC Glucose 216 (H) 65 - 199 [facility] mg/dL [facility] LABORATORY Comment: Supplemental ranges: <140 mg/dL [...] [facility]/[place] [address] (ABNORMAL) APTT (08/08/2017 6:00 [...] [facility]/ZIP Code Phon [place] [address] POCT Glucose (08/08/2017 4:42 PM EST) athologist Signature POC Glucose 78 65 - 199 [facility] mg/dL [facility] LABORATORY Comment: Supplemental ranges: <140 mg/dL before meals <180 mg/dL all other times of the day Specimen Anatomical Collection Method Collection Time Receive d Time (Source) Location / / Volume Laterality Blood specimen 08/08/2017 4:42 PM 018 4:42 (specimen) EST PM EST Yonathan Smith MD POINT OF CARE TEST ORDERABLE S Performing Organization Address City/State/[place] [address] (ABNORMAL) POCT Glucose (08/08/2017 4:01 PM EST) athologist Signature POC Glucose 58 (L) 65 - 199 [facility] mg/dL [facility] LABORATORY Comment: Supplemental ranges: <140 mg/dL before meals <180 mg/dL all other times of the day Specimen Anatomical Collection Method Collection Time Receive d Time (Source) Location / / Volume Laterality Blood specimen 08/08/2017 4:01 PM 018 4:01 (specimen) EST PM EST Yonathan Smith MD POINT OF CARE TEST ORDERABLE S Performing Organization Address City/State/[place] [address] POCT Glucose (08/08/2017 11:51 AM EST) athologist Signature POC Glucose 90 65 - 199 [facility] mg/dL [facility] LABORATORY Comment: Supplemental ranges: <140 mg/dL before meals <180 mg/dL all other times of the day Specimen Anatomical Collection Method Collection Time Receive d Time (Source) Location / / Volume Laterality Blood specimen 08/08/2017 11:51 8 (specimen) AM EST 11:51 AM EST Yonathan Smith MD POINT OF CARE TEST ORDERABLE S Performing Organization Address City/State/[place] [address] (ABNORMAL) APTT (08/08/2017 10:27 [...] [facility]/ZIP Code Phon e Number [address] POCT Glucose (08/08/2017 8:02 AM EST) athologist Signature POC Glucose 178 65 - 199 [facility] mg/dL [facility] LABORATORY Comment: Supplemental ranges: <140 mg/dL [...] [facility]/[place] [address] (ABNORMAL) APTT (08/08/2017 4:51 AM EST) athologist Signature PTT >160 25 - 35 [facility] (Critical) sec [facility] LABORATORY Comment: Called by: HOWARD, Read [...] Address City/State/ZIP [place] [address] (ABNORMAL) Differential, Automated (08/08/2017 4:51 AM EST) [facility] gist Method Time Signature Neutrophils % 77.9 % [facility] LABORATORY Neutr Abs (ANC) 8.17 (H) 1.70 - [facility] 6.10 [facility] x10(3)/[facility] LABORATORY Lymphocytes % 10.3 % [facility] LABORATORY Lymphocytes Abs 1.1 0.9 - 3.2 [facility] x10(3)/[facility] LABORATORY Monocytes % 7.0 % [facility] LABORATORY Monocyte Abs 0.7 0.3 - 0.9 [facility] x10(3)/[facility] LABORATORY Eosinophils % 3.6 % [facility] LABORATORY Eosinophils Abs 0.4 0.0 - 0.4 [facility] x10(3)/[facility] LABORATORY Basophils % 0.5 % [facility] LABORATORY Basophils Abs 0.0 0.0 - 0.1 [facility] x10(3)/[facility] LABORATORY Immature Gran % 0.70 [...] Address City/State/ZIP Code Phon e Number [address] (ABNORMAL) Hemogram (08/08/2017 4:51 AM EST) Analysis Performed At Patho logist Time Signature WBC 10.5 (H) 4.0 - 9.5 [facility] x10(3)/[facility] LABORATORY RBC 3.27 (L) 4.58 - [facility] 5.54 [facility] x10(6)/[facility] LABORATORY Hemoglobin 9.3 (L) 13.7 - [facility] 16.5 gm/dL [facility] LABORATORY Hematocrit 30.3 (L) 40.5 - [facility] 48.5 % [facility] LABORATORY MCV 92.7 82.9 - [facility] 93.1 [facility] LABORATORY MCH 28.4 27.5 - [facility] 32.1 pg [facility] LABORATORY MCHC 30.7 (L) 32.0 - [facility] 35.7 gm/dL [facility] LABORATORY Platelets 252 145 - 357 [facility] x10(3)/[facility] LABORATORY RDWSD 54.6 (H) 36.0 - [place] 45.0 [facility] LABORATORY RDWCV 16.2 (H) 11.4 - [facility] RYAN 13.8 % [facility] LABORATORY MPV 9.1 7.6 - 12.9 [facility] LABORATORY nRBC % Auto 0.0 % [facility] LABORATORY nRBC Abs Auto 0.000 0.000 - [place] [facility] 0.000 [facility] x10(3)/[facility] LABORATORY Specimen Anatomical Collection Method Collection Time Receive d Time (Source) Location / / Volume Laterality Blood specimen 08/08/2017 4:51 AM 018 5:14 (specimen) EST AM EST Resulting Agency Comment Spec In Lab Yonathan Smith MD HEMATOLOGY ORDERABLES Performing Organization Address City/State/[place] [address] (ABNORMAL) Prothrombin Time (08/08/2017 [...] Organization Address City/State/[place] [address] (ABNORMAL) Basic Metabolic Panel (non-fasting) (08/08/2017 4:51 AM EST) athologist Signature Glucose Lvl 229 (H) 65 - 199 [facility] mg/dL [facility] LABORATORY Comment: [...] or in patients with acute kidney failure. [email or web address] Specimen Anatomical Collection Method Collection Time Receive d Time (Source) Location / / Volume Laterality Blood specimen 08/08/2017 4:51 AM 018 5:14 (specimen) EST AM EST Resulting Agency Comment Spec In Lab Yonathan Smith MD CHEMISTRY ORDERABLES Performing Organization Address City/[facility]/ZIP Code Phon e Number [address] POCT Glucose (08/08/2017 4:20 AM EST) athologist Signature POC Glucose 193 65 - 199 [facility] mg/dL [facility] LABORATORY Comment: Supplemental ranges: <140 mg/dL [...] [facility] [place]/ZIP Code Phon e Number [address] POCT Glucose (08/07/2017 11:11 PM EST) athologist Signature POC Glucose 124 65 - 199 [facility] mg/dL [facility] LABORATORY Comment: Supplemental ranges: <140 mg/dL [...] [facility]/[place] [address] (ABNORMAL) APTT (08/07/2017 10:18 [...] Organization Address City/State/[place] [address] POCT Glucose (08/07/2017 8:10 PM EST) athologist Signature POC Glucose 140 65 - 199 [facility] mg/dL [facility] LABORATORY Comment: Supplemental ranges: <140 mg/dL before meals <180 mg/dL all other times of the day Specimen Anatomical Collection Method Collection Time Receive d Time (Source) Location / / Volume Laterality Blood specimen 08/07/2017 8:10 PM 018 8:10 (specimen) EST PM EST Yonathan Smith MD POINT OF CARE TEST ORDERABLE S Performing Organization Address City/State/[place] [address] POCT Glucose (08/07/2017 5:27 PM EST) athologist Signature POC Glucose 187 65 - 199 [facility] mg/dL [facility] LABORATORY Comment: Supplemental ranges: <140 mg/dL [...] [facility]/[place] [address] POCT Glucose (08/07/2017 3:29 PM EST) athologist Signature POC Glucose 86 65 - 199 [facility] mg/dL [facility] LABORATORY Comment: Supplemental ranges: <140 mg/dL before meals <180 mg/dL all other times of the day Specimen Anatomical Collection Method Collection Time Receive d Time (Source) Location / / Volume Laterality Blood specimen 08/07/2017 3:29 PM 018 3:29 (specimen) EST PM EST Yonathan Smith MD POINT OF CARE TEST ORDERABLE S Performing Organization Address [facility] [place] [address] (ABNORMAL) APTT (08/07/2017 2:50 PM EST) athologist [facility] PTT 60 (H) 25 - [...] Organization Address City/[facility]/ZIP [facility] [place] [place] [address] (ABNORMAL) POCT Glucose (08/07/2017 2:23 PM EST) athologist Signature POC Glucose 55 (L) 65 - 199 [facility] mg/dL [facility] LABORATORY Comment: Supplemental ranges: <140 mg/dL before meals <180 mg/dL all other times of the day Specimen Anatomical Collection Method Collection Time Receive d Time (Source) Location / / Volume Laterality Blood specimen 08/07/2017 2:23 PM 018 2:23 (specimen) EST PM EST Yonathan Smith MD POINT OF CARE TEST ORDERABLE S Performing Organization Address City/State/ZIP Code Phon e Number [address] POCT Glucose (08/07/2017 12:08 PM EST) P athologist Signature POC Glucose 77 65 - 199 [facility] mg/dL [facility] LABORATORY Comment: Supplemental ranges: <140 mg/dL before meals <180 mg/dL all other times of the day Specimen Anatomical Collection Method Collection Time Receive d Time (Source) Location / / Volume Laterality Blood specimen 08/07/2017 12:08 8 (specimen) PM EST 12:08 PM EST Yonathan Smith MD POINT OF CARE TEST ORDERABLE S Performing Organization Address City/State/[place] [address] (ABNORMAL) Differential, Automated (08/07/2017 7:30 AM EST) Patholo gist Method Time Signature Neutrophils % 73.8 % [facility] LABOR[facility]ORY Neutr Abs (ANC) 7.17 (H) 1.70 - [facility] 6.10 [facility] x10(3)/[facility] LABORATORY Lymphocytes % 12.2 % [facility] Lymphocytes Abs 1.2 0.9 - 3.2 [facility] x10(3)/[facility] LABORATORY Monocytes % 9.0 % [facility] Monocyte Abs 0.9 0.3 - 0.9 [facility] x10(3)/[facility] LABORATORY Eosinophils % 3.9 % [facility] Eosinophils Abs 0.4 0.0 - 0.4 [facility] x10(3)/[facility] LABORATORY Basophils % 0.6 % [facility] Basophils Abs 0.1 0.0 - 0.1 [facility] x10(3)/[facility] LABORATORY Immature Gran % 0.50 % [...] Organization Address City/State/ZIP Code Phon e Number [place] [id number] (ABNORMAL) Hemogram (08/07/2017 7:30 AM EST) Analysis Performed At Patho logist Time Signature WBC 9.7 (H) 4.0 - 9.5 [facility] x10(3)/[facility] LABORATORY RBC 3.54 (L) 4.58 - [facility] 5.54 [facility] x10(6)/[facility] LABORATORY Hemoglobin 9.9 (L) 13.7 - [facility] 16.5 gm/dL [facility] LABORATORY Hematocrit 32.3 (L) 40.5 - [facility] 48.5 % [facility] LABORATORY MCV 91.2 82.9 - [facility] 93.1 [facility] LABORATORY MCH 28.0 27.5 - [facility] 32.1 pg [facility] LABORATORY MCHC 30.7 (L) 32.0 - [facility] 35.7 gm/dL [facility] LABORATORY Platelets 312 145 - 357 [facility] x10(3)/[facility] LABORATORY RDWSD 53.2 (H) 36.0 - [facility] 45.0 fL [facility] LAB[facility] RDWCV 16.0 (H) 11.4 - [facility] 13.8 % [facility] LABORATORY MPV 8.9 7.6 - 12.9 [facility] LABORATORY nRBC % Auto 0.0 % [facility] nRBC Abs Auto 0.000 0.000 - [facility] 0.000 [facility] x10(3)/[facility] LABORATORY Specimen Anatomical Collection Method Collection Time Receive d Time (Source) Location / / Volume Laterality Blood specimen 08/07/2017 7:30 AM 018 7:45 (specimen) EST AM EST Resulting Agency Comment Spec In Lab Yonathan Smith MD HEMATOLOGY ORDERABLES Performing Organization Address City/State/ZIP [place] [address] (ABNORMAL) Basic Metabolic Panel (non-fasting) (08/07/2017 7:30 AM EST) athologist Signature Glucose Lvl 80 65 - 199 [facility] mg/dL [facility] LABORATORY Comment: [...] or in patients with acute kidney failure. [email or web address] Specimen Anatomical Collection Method Collection Time Receive d Time (Source) Location / / Volume Laterality Blood specimen 08/07/2017 7:30 AM 018 7:45 (specimen) EST AM EST Resulting Agency Comment Spec In Lab Yonathan Smith MD CHEMISTRY ORDERABLES Performing Organization Address City/[facility]/ZIP [facility] Phon e Number [address] POCT Glucose (08/07/2017 7:27 AM EST) athologist Signature POC Glucose 81 65 - 199 [facility] mg/dL [facility] LABORATORY Comment: Supplemental ranges: <140 mg/dL before meals <180 mg/dL all other times of the day Specimen Anatomical Collection Method Collection Time Receive d Time (Source) Location / / Volume Laterality Blood specimen 08/07/2017 7:27 AM 018 7:27 (specimen) EST AM EST Yonathan Smith MD POINT OF CARE TEST ORDERABLE S Performing Organization Address City/[facility] Phon e Number [address] APTT (08/07/2017 7:04 AM [...] Organization Address City/State/[place] [address] (ABNORMAL) Prothrombin Time (08/07/2017 [...] Organization Address City/State/[place] [address] POCT Glucose (08/07/2017 4:03 AM EST) athologist Signature POC Glucose 93 65 - 199 [facility] mg/dL [facility] LABORATORY Comment: Supplemental ranges: <140 mg/dL before meals <180 mg/dL all other times of the day Specimen Anatomical Collection Method Collection Time Receive d Time (Source) Location / / Volume Laterality Blood specimen 08/07/2017 4:03 AM 018 4:03 (specimen) EST AM EST Yonathan Smith MD POINT OF CARE TEST ORDERABLE S Performing Organization Address City/State/[place] [address] POCT Glucose (08/07/2017 12:04 AM EST) athologist Signature POC Glucose 107 65 - 199 [facility] mg/dL [facility] LABORATORY Comment: Supplemental ranges: <140 mg/dL [...] [facility] [place]/ZIP Code Phon e Number [address] POCT Glucose (08/06/2017 7:56 PM EST) P athologist Signature POC Glucose 178 65 - 199 [facility] mg/dL [facility] LABORATORY Comment: Supplemental ranges: <140 mg/dL before meals <180 mg/dL all other times of the day Specimen Anatomical Collection Method Collection Time Receive d Time (Source) Location / / Volume Laterality Blood specimen 08/06/2017 7:56 PM 018 7:56 (specimen) EST PM EST Yonathan Smith MD POINT OF CARE TEST ORDERABLE S Performing Organization Address City/State/ZIP Code Phon e Number [address] [id number] (08/06/2017 2:32 PM EST) Component Value Ref Test Analysis Performed At Patholo gist Range Method Time Signature VB Text Department: Vascular Surgery Lab VASCUBASE Report Patient: [id number] (GREGORY HOANG) CPT: [id number] ICD10: I99.8 Referring Physician: YONATHAN SMITH ?? [...] Mcgrath RN) 0749 (Given - Provider: Dory Yaun ams, RN)1200 (Not Given - Provider: Dory [...]
Routine documented in this encounter Care Teams Dump Operator Relationship Specialty Start Date End Date Lovely Vicente MD PCP - General 04/16/[address] [place] [address] [address] [place] [address] documented as of this encounter
--- OUTSIDE RECORDS SUMMARY | 2022-04-17 08:23 | XMS_ITS | Encounter Summary ---
:1945 [place] [address] Care Team Providers Name Role Phone Lovely Vicente MD Primary Care Provider Reason for Visit Auth/Cert Specialty Diagnoses / Procedures Referred By Contact Refer red To Contact Diagnoses Critical lower limb ischemia CELLULITIS RT FOOT Procedures EMERGENCY Referral ID Status Reason Start Date Expiration Date Visits Requ ested Visits Authorized [id number] 1 1 Encounter Details Date Type Department Care Team Description 08/06/2017 - Hospital Encounter 5 Yonathan Oneill lower limb ischemia; 08/16/2017 Su Flores MD Ischemic foot Hospital [facility] [address] [place] [phone] Social History Tobacco Use Types Packs/Day Years [...] addition to a 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 [...] Dorsalis Pedis (Ankle) Artery ?132 ? 0.94 ??Colquitt-Biphasic ? Posterior Tibial (Ankle) Artery ??154 ? 1.10 ??[place]quitt-Biphasic ? Fourth Toe ? 67 ?0.48 ?? [...] foot. Discharge Conditions/Prognosis: Good Discharge to: [facility] Rehab Discharge Medications: Your Medications New Medications [...] For any problems or questions please call [phone] ZELDA Smith, financial planner Nurse Clinician For issues on weeknights after 5pm and weekends please call [phone] and ask for the Vascular Fellow registered nurse practitioner. General Instructions None Future Appointments and Orders Future Appointments Provider Department Dept Phone 08/26/2017 4:00 PM Aurelia Rivera PA [facility] [place] [phone] 09/07/2017 3:00 PM LAB, THREE L Lab 3L [facility] [phone] 09/07/2017 4:00 PM Luz Prescott MD Endocrinology [facility] [place] [phone] 09/09/2017 8:00 AM Barbra Soares APRN [facility] Management [facility] [place] [phone] Please bring a list of your current [...] For any problems or questions please call [phone] ZELDA Smith, financial planner Nurse Clinician For issues on weeknights after 5pm and weekends please call [phone] and ask for the Vascular Fellow registered nurse practitioner. documented in this encounter Medications at Time [...] Discharge Note Patient Destination: [facility] ([facility]) [address] [place] [address] Transportation: with (at bedside) Time of Discharge: by 12 noon Level of Care: swing Patient Aware: yes Family Notified: yes Md to call report to: Yissel Quintero BOG WORKER already called RN to call report to: [phone] Shirin Wolf Office of Care Management Pager [phone] Shirin Wolf RN - 08/16/2017 10:50 AM EST [facility] has offered pt swing bed. Pt and accept bed. will transport via car. BOG WORKER Yissel Quintero aware; d/c paperwork will be completed by 12 noon. [facility] requests pt arrival by 1400 today; BOG WORKER, RN, and family aware. BOG WORKER called [facility] and was told that they prefer pt to arrive with wound vac dressing applied but clamped. BOG WORKER applied new wound vac dressing. RN has [facility] number to call report. PASSR completed; BOG WORKER paged to request provider signature in highlighted space. Indigo from [facility] notified via email that home wound vac now cancelled; [facility] has picked up from room and order cancelled. Packet started and provided to community living instructor. Medicare important message explained to patient, patient signed. Copy provided to patient and signature page to OCM for inclusion in pt EMR. Radha Georges - 08/16/2017 10:34 AM EST Office of Care Management/Livestock Yard Attendant Patient Name: Gregory Hoang : 1945 Patient has been offered a swing bed at [facility]. The patient will be transported by private transportation. No MD to MD report necessary Please call Nursing Report to [phone], ask for middle school librarian. Info to accompany patient: Narcotic Prescriptions Copies of Medication Administration Records and IV sheets for past 10 days. Plan: Livestock Yard Attendant will be available to the patient and Hardboard Press Operator-RN and/or Varnish Thinner for further assistance. Patient will be discharged to: [place] [facility] [id number] Radha Powers, Livestock Yard Attendant Mira Black, VAMSI - 08/15/2017 10:05 PM EST [address] Flores to ask if he wanted to hold metoprolol dose. BP 95/58. OK to hold this dose Courtney Brito - 08/15/2017 3:26 PM EST Office of Care Management(OCM)/Livestock Yard Attendant(RS)/ D/C Planning re : Patient is medically ready for d/c today. RS has been in contact with [facility] to see if they could offer a bed. [facility] is still reviewing the case and need their MD to review chart prior to accepting or declining. OCM team needs to check in with [facility] tomorrow to check on status. 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 Vac in place. [...] [facility] PHONE: [phone] FAX: [phone] CM spoke with RS who said that [...] rehab. Await recommendations from PT. Covering pager #[phone]. 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 Grey Tender Kaitlin Saha, RN Pager #[phone] Payam Rosales - 08/13/2017 2:37 PM EST Hospitalist Physician Encounter Note Patient Name: Gregory Hoang : [id number] MR#: [id number] Admit Date: 08/06/2017 1:41 PM Hospital Day 7 days Narrative: Visited to introduce and assess acceptance of Hospitalist Physician services. Pt was awake, alert, oriented and in chair and family was there. Assessment:Patient coping positively with stresses of illness/hospitalization at this time. Pt says that he is hoping to get better and his family was there. Pt says that he has family care and supportand taking one day at time. Intervention and Outcome: Provided emotional support and encouraging presence. 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 A letter describing our affiliations was reviewed with them and theywere educated about their right to choose where referrals are placed. Patient requests referral to [facility]. PHONE: [phone] FAX: [phone]. And Home NPWT (Negative Pressure Wound Therapy) aka wound vac device made available to pt. Serial # confirmed. Reviewed [facility] Proof of Delivery/Assignment of Benefits Statement(POD/AOB) Form w patient or authorized agent signing on behalf of patient. Copy of POD/AOB provided to pt and other copy faxed to [employer] @ fax# [phone] Expected date of discharge: 08/12/2017. 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 Heparin gtt continues to run. Pt a/ox4. [...] of : 1945 AGE 72 y.o. 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 Unsuccessful draw attempt, another dietary director will come [facility] to collect blood for PTT test. 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 Vascular resident registered nurse practitioner and will forward result to the team prior to rounds. 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 That hospitalization was complicated by Afib with RVR and he was discharged on coumadin. 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 [...] left blue toes with CTA showing R LITIGATION ASSOCIATE pseudoaneurysm (now thrombosed) and occluded ATs [...] 2.5x80 5. Completion RLE angiogram 6. L LITIGATION ASSOCIATE angiogram 7. 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 - L LITIGATION ASSOCIATE angriogram demonstrated: High femoral bifurcation over the proximal half of the femoral head. L LITIGATION ASSOCIATE access in the distal L LITIGATION ASSOCIATE. - Closure device: Mynx Technical Procedure: [...] for a 45cm 5F Destination. V18 and [place] and QuickCross catheters were used to select [...] 5F. A stationed picture of the L LITIGATION ASSOCIATE was performed as the patient was noted to have a very high bifurcation. Access appeared in the distal R LITIGATION ASSOCIATE. Closure and sheath removal was performed [...] PM EST 1440 report called to 5 patterson nurse Tessa AGUSTIN documented in this encounter [...] pt and pt's spouse. Discharge to [facility]. Goal: Individualization & Mutuality Outcome: Outcome (s) [...] sit/sit to supine -- Bed Mobility Goal, Luna Level independent -- Bed Mobility Goal, Date [...] days -- Transfer Training Goal, Activity Type ctc-wi-rrwmu/tbyyx-cg-pmf -- Transfer Train Goal, Luna Level conditional independence -- Transfer Train Goal, [...] call cabello within reach, Hourly rounding by RN/ASSISTANT PROFESSOR OF COMMUNICATION. Bed alarm / Chair alarm. Patient-specific fall [...] Smith MD - 08/15/2017 6:28 PM EST [facility] Operative Note Patient Name: Gregory Hoang : [id number] MR#: [id number] Case Date: 08/09/2017 Surgeon: Surgeon(s) and Role: [...] 2.5x80 5. Completion RLE angiogram 6. L LITIGATION ASSOCIATE angiogram 7. Mynx closure Precautions/Restrictions: fall, [...] other (see comments) (or swing bed) Pager: [phone] BASSAM ELIAS, PT 08/14/2017 Inpatient Physical Therapy [...] to Achieve by discharge Gait Training Goal, Luna Level conditional independence;set up required Gait Training [...] facilities over the weekend except for [facility]. CM spoke with [facility] CM Drea Sandhu, VAMSI who said that they do not anticipate any beds over the weekend. Reviewed with patient/ that they need to be aware that patient will need to take the first bed offered at the facilities that they make referrals to. Their choices are: 1- [facility] PHONE: [phone] FAX: [phone] 2- [facility] ([facility]) [address] [place] [address] 3- [facility]) [address] [place] [address] I have discussed Medicare/Private Insurance [...] RS/CM on Wednesday to follow-up. Covering pager #[phone] for today. Plan of Care - Henrique [...] with additional findings of pseudoaneurysm on R LITIGATION ASSOCIATE and bilateral anterior tibial artery occlusions. [...] CVS: Denies chest pain/tightness/pressure. Respiratory: Denies SOB, FOUNRIER, cough, wheezes. GI: Denies abdominal pain, changes [...] an outpatient once discharged. Have patient call [phone] to set up an appointment. Follow-up: Dermatology will sign-off for now. Please do not hesitate to contact us if you have any questions orconcerns. Impression and Recommendations discussed with primary team on 08/13/2017. Karo Henderson MD Resident in Dermatology Section of Dermatology, Department of Surgery [facility] Pager [phone] Patient seen and evaluated with staff Rubber Curer: Halima Cordero MD Section of Dermatology [place] [...] 2.5x80 5. Completion RLE angiogram 6. L LITIGATION ASSOCIATE angiogram 7. Mynx closure Active Non-Hospital [...] home with home health ([facility] PT[facility]OT) Pager: [phone] YASIR TELLO OT 08/12/2017 Occupational Therapy Rehabilitation [...] 2.5x80 5. Completion RLE angiogram 6. L LITIGATION ASSOCIATE angiogram 7. Mynx closure Past Medical [...] with 24/7 assistance and maximal services) Pager: [phone] NICHOLAS MORA, PT 08/12/2017 Physical Therapy Rehabilitation [...] sit/sit to supine -- Bed Mobility Goal, Luna Level independent -- Bed Mobility Goal, Outcome Achieved -- goal ongoing Goal: Gait Training Goal Stand Alone Therapy Goal Outcome: Ongoing (Interventions Implemented as Appropriate) 08/11/17 1310 08/12/17 1510 Gait Training Goal Gait Training Goal, Date Established 08/11/17 -- Gait Training Goal, Time to Achieve 5 - 7 days -- Gait Training Goal, Luna Level conditional independence -- Gait Training Goal, [...] days -- Transfer Training Goal, Activity Type leb-rg-wuiku/lspug-yx-xpb -- Transfer Train Goal, Luna Level conditional independence -- Transfer Training Goal, [...] Smith MD - 08/11/2017 2:52 PM EST [facility] Operative Note Patient Name: Gregory Hoang : [id number] MR#: [id number] Case Date: 08/11/2017 Surgeon: Surgeon(s) and Role: [...] 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 Completion RLE angiogram 6. L LITIGATION ASSOCIATE angiogram 7. Mynx closure He is [...] Anticipated Discharge Disposition: inpatient rehabilitation facility Pager: [phone] LAWRENCE GONZALEZ, PT 08/11/2017 Physical Therapy Rehabilitation [...] to sit/sit to supine Bed Mobility Goal, Luna Level independent Goal: Gait Training Goal Stand Alone Therapy Goal Outcome: Ongoing (Interventions Implemented as Appropriate) 08/11/17 1310 Gait Training Goal Gait Training Goal, Date Established 08/11/17 Gait Training Goal, Time to Achieve 5 - 7 days Gait Training Goal, Luna Level conditional independence Gait Training Goal, Assist [...] 7 days Transfer Training Goal, Activity Type mxp-to-xxbhz/etbqz-pd-yin Transfer Train Goal, Luna Level conditional independence Plan of [facility] Annetta Sandoval RN - 08/11/2017 7:21 [...] call cabello within reach, Hourly rounding by RN/ASSISTANT PROFESSOR OF COMMUNICATION. Bed alarm / Chair alarm. ? Patient-specific [...] 04/05/2013 Hospitalizations Within the Past 30 Days: [facility] 07/20/2017 Anticipated Length Of Stay (If known): Expected Length of Hospitalization: 5-7 days2-3 days Current Decision-Making Capacity: Alert and oriented x 4 Advance Care Planning: on file Kisha Hoang [facility] [phone] Current Coping/Education/Information Needs: pt and spouse state [...] Health/Prescription Coverage: Primary Insurance: MEDICARE Secondary Insurance: [employer] [facility] Prescription Coverage: See above Preferred Pharmacy: [facility] [id number] Other: N/A Primary Care Provider: Lovely Vicente MD [phone] Patient/Caregiver Goals of Treatment: Patient plans to [...] of care planning. Kaitlin Saha RN Pager: [phone] Plan of Care - Melba Jaramillo RN [...] Overview Goal: Plan of Care Review 08/08/17 1004 Coping/Psychosocial Plan Of Care Reviewed With patient [...] call cabello within reach, Hourly rounding by RN/ASSISTANT PROFESSOR OF COMMUNICATION. Bed alarm / Chair alarm. Patient-specific fall [...] at bedside and MD TEAM Carrying pager [phone] contacted (via Radio page) and notified of [...] Appointment Cardiology Zulma Dolan MD [facility] [place], [place] [address] (Wo rk) 05/28/2022 Laboratory Appointment Lab 05/28/2022 Office Visit Cardiology Zulma Dolan MD [facility] [place] [address] Liz Poole PA [facility] [place] [address] 06/10/2022 Office Visit Dermatology Laura Scherer MD [facility] DR [address] [facility], [place] [address] (Wo rk) documented as of [...] [facility] mg/dL [facility] Comment: Supplemental ranges: <140 mg/dL before meals <180 mg/dL all other times of the day Specimen Anatomical Collection Method Collection Time Receive d Time (Source) Location / / Volume Laterality Blood specimen 08/16/2017 7:28 AM 018 7:28 (specimen) EST AM EST Yonathan Smith MD POINT OF CARE TEST ORDERABLE S Performing Organization Address City/State/[place] [address] (ABNORMAL) Differential, Automated (08/16/2017 5:08 AM EST) [facility] Method Time Signature Neutrophils % 73.9 % [facility] Neutr Abs (ANC) 5.37 1.70 - [facility] 6.10 [facility] x10(3)/[facility] LABORATORY Lymphocytes % 10.1 % [facility] Lymphocytes Abs 0.7 (L) 0.9 - 3.2 [facility] x10(3)/[facility] LABORATORY Monocytes % 10.1 % [facility] Monocyte Abs 0.7 0.3 - 0.9 [facility] x10(3)/[facility] LABORATORY Eosinophils % 5.1 % [facility] Eosinophils Abs 0.4 0.0 - 0.4 [facility] x10(3)/[facility] LABORATORY Basophils % 0.4 % [facility] Basophils Abs 0.0 0.0 - 0.1 [facility] x10(3)/[facility] LABORATORY Immature Gran % 0.40 [...] - 0.04 x10(3)/[facility] Y [facility] LABORATORY Specimen Anatomical Collection Method Collection Time Receive d Time (Source) Location / / Volume Laterality Blood specimen 08/16/2017 5:08 AM 018 5:20 (specimen) EST AM EST Resulting Agency Comment Spec In Lab Yonathan Smith MD HEMATOLOGY ORDERABLES Performing Organization Address City/State/[place] [address] (ABNORMAL) Hemogram (08/16/2017 5:08 AM EST) Analysis Performed At Patho logist Time Signature WBC 7.3 4.0 - 9.5 [facility] x10(3)/[facility] LABORATORY RBC 3.36 (L) 4.58 - [place] [facility] 5.54 [facility] x10(6)/[facility] LABORATORY Hemoglobin 9.7 (L) 13.7 - [facility] 16.[facility] gm/dL [facility] Hematocrit 30.3 (L) 40.5 - [facility] 48.5 % [facility] MCV 90.2 82.9 - [facility] 93.1 [facility] LABORATORY MCH 28.9 27.5 - [place] [facility] 32.1 pg [facility] MCHC 32.0 32.0 - [facility] 35.7 gm/dL [facility] Platelets 282 145 - 357 [facility] x10(3)/[facility] LABORATORY RDWSD 53.9 (H) 36.0 - [facility] 45.0 [facility] LABORATORY RDWCV 16.5 (H) 11.4 - [facility] SU 13.8 % [facility] MPV 9.0 7.6 - 12.9 [facility] LABORATORY nRBC % Auto 0.0 % [facility] LAB[facility]ORY nRBC Abs Auto 0.000 0.000 - [facility] SU 0.000 [facility] x10(3)/[facility] LABORATORY Specimen Anatomical Collection Method Collection Time Receive d Time (Source) Location / / Volume Laterality Blood specimen 08/16/2017 5:08 AM 018 5:20 (specimen) EST AM EST Resulting Agency Comment Spec In Lab Yonathan Smith MD HEMATOLOGY ORDERABLES Performing Organization Address City/State/[place] [address] (ABNORMAL) Basic Metabolic Panel (non-fasting) (08/16/2017 5:08 AM EST) P athologist Signature Glucose Lvl 141 65 - 199 [facility] mg/dL [facility] Comment: [...] LABORATORY Calcium 8.7 8.5 - 10.5 mg/dL [facility] Estimated GFR 57 (L) >=60 [facility] Comment: The reported eGFR should be multiplied b y 1.2 for patients. The MDRD is not an appropriate measure o f renal function for patients with body mass extremes or in patients with acute kidney failure. http://GetShopApp/DHnkdep http://GetShopApp/DHMCnkf Specimen Anatomical Collection Method Collection Time Receive d Time (Source) Location / / Volume Laterality Blood specimen 08/16/2017 5:08 AM 018 5:20 (specimen) EST AM EST Resulting Agency Comment Spec In Lab Yonathan Smith MD CHEMISTRY ORDERABLES Performing Organization Address City/State/[place] [address] (ABNORMAL) Prothrombin Time (08/16/2017 [...] Address City/State/ZIP Code Phon e Number [address] POCT Glucose (08/16/2017 4:09 AM EST) athologist Signature POC Glucose 147 65 - 199 [facility]/dL [facility] Comment: Supplemental ranges: <140 mg/dL before meals <180 mg/dL all other times of the day Specimen Anatomical Collection Method Collection Time Receive d Time (Source) Location / / Volume Laterality Blood specimen 08/16/2017 4:09 AM 018 4:09 (specimen) EST AM EST Yonathan Smith MD POINT OF CARE TEST ORDERABLE S Performing Organization Address City/State/[place] [address] POCT Glucose (08/15/2017 11:56 PM EST) athologist Signature POC Glucose 176 65 - 199 [facility] SU mg/dL [facility] Comment: Supplemental ranges: <140 mg/dL before meals <180 mg/dL all other times of the day Specimen Anatomical Collection Method Collection Time Receive d Time (Source) Location / / Volume Laterality Blood specimen 08/15/2017 11:56 8 (specimen) PM EST 11:56 PM EST Yonathan Smith MD POINT OF CARE TEST ORDERABLE S Performing Organization Address City/State/[place] [address] POCT Glucose (08/15/2017 8:05 PM EST) athologist Signature POC Glucose 136 65 - 199 [facility] mg/dL [facility] Comment: Supplemental ranges: <140 mg/dL before meals <180 mg/dL all other times of the day Specimen Anatomical Collection Method Collection Time Receive d Time (Source) Location / / Volume Laterality Blood specimen 08/15/2017 8:05 PM 018 8:05 (specimen) EST PM EST Yonathan Smith MD POINT OF CARE TEST ORDERABLE S Performing Organization Address City/State/[place] [address] (ABNORMAL) POCT Glucose (08/15/2017 4:50 PM EST) athologist Signature POC Glucose 232 (H) 65 - 199 [facility] SU mg/dL [facility] LABORATORY Comment: Supplemental ranges: <140 mg/dL before meals <180 mg/dL all other times of the day Specimen Anatomical Collection Method Collection Time Receive d Time (Source) Location / / Volume Laterality Blood specimen 08/15/2017 4:50 PM 018 4:50 (specimen) EST PM EST Yonathan Smith MD POINT OF CARE TEST ORDERABLE S Performing Organization Address City/State/[place] [address] POCT Glucose (08/15/2017 12:04 PM EST) athologist Signature POC Glucose 135 65 - 199 [facility] SU mg/dL [facility] Comment: Supplemental ranges: <140 mg/dL before meals <180 mg/dL all other times of the day Specimen Anatomical Collection Method Collection Time Receive d Time (Source) Location / / Volume Laterality Blood specimen 08/15/2017 12:04 8 (specimen) PM EST 12:04 PM EST Yonathan Smith MD POINT OF CARE TEST ORDERABLE S Performing Organization Address City/State/[place] [address] POCT Glucose (08/15/2017 7:36 AM EST) P athologist Signature POC Glucose 124 65 - 199 [facility] mg/dL [facility] Comment: Supplemental ranges: <140 mg/dL before meals <180 mg/dL all other times of the day Specimen Anatomical Collection Method Collection Time Receive d Time (Source) Location / / Volume Laterality Blood specimen 08/15/2017 7:36 AM 018 7:36 (specimen) EST AM EST Yonathan Smith MD POINT OF CARE TEST ORDERABLE S Performing Organization Address City/State/[place] [address] (ABNORMAL) Differential, Automated (08/15/2017 6:22 AM EST) Patholo gist Method Time Signature Neutrophils % 76.1 % [facility] LABORATORY Neutr Abs (ANC) 6.62 (H) 1.70 - [facility] 6.10 [facility] x10(3)/[facility] L LABORATORY Lymphocytes % 9.3 % [facility] LABORATORY Lymphocytes Abs 0.8 (L) 0.9 - 3.2 [facility] x10(3)/[facility] LABORATORY Monocytes % 9.4 % [facility] LABORATORY Monocyte Abs 0.8 0.3 - 0.9 [facility] x10(3)/[facility] LABORATORY Eosinophils % 4.0 % [facility] LABORATORY Eosinophils Abs 0.4 0.0 - 0.4 [facility] x10(3)/[facility] LABORATORY Basophils % 0.6 % [facility] LABORATORY Basophils Abs 0.0 0.0 - 0.1 [facility] x10(3)/[facility] LABORATORY Immature Gran % [...] Address City/State/[place] [address] (ABNORMAL) Hemogram (08/15/2017 6:22 AM EST) Analysis Performed At Patho logist Time Signature WBC 8.7 4.0 - 9.5 [facility] x10(3)/[facility] LABORATORY RBC 3.21 (L) 4.58 - [facility] 5.54 [facility] x10(6)/[facility] LABORATORY Hemoglobin 9.1 (L) 13.7 - [facility] 16.5 gm/dL [facility] LAB[facility]ORY Hematocrit 29.0 (L) 40.5 - [facility] 48.5 % [facility] MCV 90.3 82.9 - [facility] 93.1 [facility] LABORATORY MCH 28.3 27.5 - [facility] 32.1 pg [facility] MCHC 31.4 (L) 32.0 - [facility] 35.7 gm/dL [facility] LAB[facility] Platelets 254 145 - 357 [facility] x10(3)/[facility] LABORATORY RDWSD 53.9 (H) 36.0 - [facility] SU 45.0 [facility] LABORATORY RDWCV 16.3 (H) 11.4 - [facility] SU 13.8 % [facility] LABORATORY MPV 8.8 7.6 - 12.9 [facility] LABORATORY nRBC % Auto 0.0 % [facility] LABORATORY nRBC Abs Auto 0.000 0.000 - [facility] SU 0.000 [facility] x10(3)/[facility] LABORATORY Specimen Anatomical Collection Method Collection Time Receive d Time (Source) Location / / Volume Laterality Blood specimen 08/15/2017 6:22 AM 018 6:33 (specimen) EST AM EST Resulting Agency Comment Spec In Lab Yonathan Smith MD HEMATOLOGY ORDERABLES Performing Organization Address City/[facility]/[place] [address] (ABNORMAL) Basic Metabolic Panel (non-fasting) (08/15/2017 6:22 AM EST) athologist Signature Glucose Lvl 118 65 - 199 [facility] mg/dL [facility] Comment: [...] or in patients with acute kidney failure. [email or web address]/DHnkdep [email or web address]/DHMCnkf Specimen Anatomical Collection Method Collection Time Receive d Time (Source) Location / / Volume Laterality Blood specimen 08/15/2017 6:22 AM 018 6:33 (specimen) EST AM EST Resulting Agency Comment Spec In Lab Yonathan Smith MD CHEMISTRY ORDERABLES Performing Organization Address City/[facility]/[place] [address] (ABNORMAL) Prothrombin Time (08/15/2017 [...] Organization Address City/State/[place] [address] POCT Glucose (08/15/2017 4:33 AM EST) athologist Signature POC Glucose 164 65 - 199 [facility]dL [facility] Comment: Supplemental ranges: <140 mg/dL before meals <180 mg/dL all other times of the day Specimen Anatomical Collection Method Collection Time Receive d Time (Source) Location / / Volume Laterality Blood specimen 08/15/2017 4:33 AM 018 4:33 (specimen) EST AM EST Yonathan Smith MD POINT OF CARE TEST ORDERABLE S Performing Organization Address City/State/[place] [address] POCT Glucose (08/15/2017 12:12 AM EST) athologist Signature POC Glucose 89 65 - 199 [facility]dL [facility] Comment: Supplemental ranges: <140 mg/dL before meals <180 mg/dL all other times of the day Specimen Anatomical Collection Method Collection Time Receive d Time (Source) Location / / Volume Laterality Blood specimen 08/15/2017 12:12 8 (specimen) AM EST 12:12 AM EST Yonathan Simth MD POINT OF CARE TEST ORDERABLE S Performing Organization Address City/State/[place] [address] (ABNORMAL) POCT Glucose (08/14/2017 8:07 PM EST) athologist Signature POC Glucose 204 (H) 65 - 199 [place] [facility] mg/dL [facility] Comment: Supplemental ranges: <140 mg/dL before meals <180 mg/dL all other times of the day Specimen Anatomical Collection Method Collection Time Receive d Time (Source) Location / / Volume Laterality Blood specimen 08/14/2017 8:07 PM 018 8:07 (specimen) EST PM EST Yonathan Smith MD POINT OF CARE TEST ORDERABLE S Performing Organization Address City/State/[place] [address] POCT Glucose (08/14/2017 5:11 PM EST) athologist Signature POC Glucose 174 65 - 199 [place] [facility] mg/dL [facility] Comment: Supplemental ranges: <140 mg/dL before meals <180 mg/dL all other times of the day Specimen Anatomical Collection Method Collection Time Receive d Time (Source) Location / / Volume Laterality Blood specimen 08/14/2017 5:11 PM 018 5:11 (specimen) EST PM EST Yonathan Smith MD POINT OF CARE TEST ORDERABLE S Performing Organization Address City/State/[place] [address] POCT Glucose (08/14/2017 12:10 PM EST) athologist Signature POC Glucose 141 65 - 199 [place] [facility] mg/dL [facility] Comment: Supplemental ranges: <140 mg/dL before meals <180 mg/dL all other times of the day Specimen Anatomical Collection Method Collection Time Receive d Time (Source) Location / / Volume Laterality Blood specimen 08/14/2017 12:10 8 (specimen) PM EST 12:10 PM EST Yonathan Smith MD POINT OF CARE TEST ORDERABLE S Performing Organization Address City/State/ZIP Code Phon e Number [address] POCT Glucose (08/14/2017 8:07 AM EST) P athologist Signature POC Glucose 158 65 - 199 [facility] mg/dL [facility] Comment: Supplemental ranges: <140 mg/dL before meals <180 mg/dL all other times of the day Specimen Anatomical Collection Method Collection Time Receive d Time (Source) Location / / Volume Laterality Blood specimen 08/14/2017 8:07 AM 018 8:07 (specimen) EST AM EST Yonathan Smith MD POINT OF CARE TEST ORDERABLE S Performing Organization Address City/State/[place] [address] (ABNORMAL) Differential, Automated (08/14/2017 4:52 AM EST) Patholo gist Method Time Signature Neutrophils % 78.6 % [facility] LABORATORY Neutr Abs (ANC) 7.70 (H) 1.70 - [facility] 6.10 [facility] x10(3)/[facility] L LABORATORY Lymphocytes % 7.8 % [facility] LABORATORY Lymphocytes Abs 0.8 (L) 0.9 - 3.2 [facility] x10(3)/[facility] LABORATORY Monocytes % 8.8 % [facility] LABORATORY Monocyte Abs 0.9 0.3 - 0.9 [facility] x10(3)/[facility] LABORATORY Eosinophils % 4.0 % [facility] LABORATORY Eosinophils Abs 0.4 0.0 - 0.4 [facility] x10(3)/[facility] LABORATORY Basophils % 0.5 % [facility] LABORATORY Basophils Abs 0.0 0.0 - 0.1 [facility] x10(3)/[facility] LABORATORY Immature Gran % [...] Melisa Gran Abs 0.03 0.00 - 0.04 x10(3)/[facility] MAR Y [facility] LABORATORY Specimen Anatomical Collection Method Collection Time Receive d Time (Source) Location / / Volume Laterality Blood specimen 08/14/2017 4:52 AM 018 5:08 (specimen) EST AM EST Resulting Agency Comment Spec In Lab Yonathan Smith MD HEMATOLOGY ORDERABLES Performing Organization Address City/State/[place] [address] (ABNORMAL) Hemogram (08/14/2017 4:52 AM EST) Analysis Performed At Patho logist Time Signature WBC 9.8 (H) 4.0 - 9.5 [facility] x10(3)/[facility] LABORATORY RBC 3.32 (L) 4.58 - [facility] 5.54 [facility] x10(6)/[facility] LABORATORY Hemoglobin 9.5 (L) 13.7 - [facility] 16.5 gm/dL [facility] LABORATORY Hematocrit 30.3 (L) 40.5 - [facility] SU 48.5 % [facility] LABORATORY MCV 91.3 82.9 - [facility] SU 93.1 [facility] LABORATORY MCH 28.6 27.5 - [place] [facility] 32.1 pg [facility] LABORATORY MCHC 31.4 (L) 32.0 - [facility] SU 35.7 gm/dL [facility] Platelets 263 145 - 357 [facility](3[facility] LABORATORY RDWSD 54.8 (H) 36.0 - [facility] SU 45.0 [facility] RDWCV 16.5 (H) 11.4 - [facility] SU 13.8 % [facility] LABORATORY MPV 9.1 7.6 - 12.9 [facility] LABORATORY nRBC % Auto 0.0 % [facility] LABORATORY nRBC Abs Auto 0.000 0.000 - [facility] 0.000 [facility] x10(3)/[facility] LABORATORY Specimen Anatomical Collection Method Collection Time Receive d Time (Source) Location / / Volume Laterality Blood specimen 08/14/2017 4:52 AM 018 5:08 (specimen) EST AM EST Resulting Agency Comment Spec In Lab Yonathan Smith MD HEMATOLOGY ORDERABLES Performing Organization Address City/[facility]/[place] [address] (ABNORMAL) Prothrombin Time (08/14/2017 [...] Address City/State/[place] [address] (ABNORMAL) Basic Metabolic Panel (non-fasting) (08/14/2017 4:52 AM EST) athologist Signature Glucose Lvl 135 65 - 199 [facility] mg/dL [facility] Comment: Diabetes: >=200 mg/dL plus symp toms BUN 25 (H) 10 - 20 mg/dL [facility] LABORATORY Creatinine 1.36 0.80 - 1.50 mg/dL [facility] LABORATORY Sodium 141 135 - 145 mmol/L [facility] LABORATORY Potassium 4.8 3.5 - 5.0 mmol/L [facility] CENTER LABORATORY Estimated GFR 52 (L) >=60 [facility] LABORATORY Comment: The reported eGFR should be multiplied b y 1.2 for patients. The MDRD is not an appropriate measure o f renal function for patients with body mass extremes or in patients with acute kidney failure. http://[email or web address]/DHnkdep http://[employer]/DHMCnkf Specimen Anatomical Collection Method Collection Time Receive d Time (Source) Location / / Volume Laterality Blood specimen 08/14/2017 4:52 AM 018 5:08 (specimen) EST AM EST Resulting Agency Comment Spec In Lab Ynoathan Smith MD CHEMISTRY ORDERABLES Performing Organization Address City/State/[place] [address] POCT Glucose (08/14/2017 3:56 AM EST) P athologist Signature POC Glucose 135 65 - 199 [facility] mg/dL [facility] Comment: Supplemental ranges: <140 mg/dL before meals <180 mg/dL all other times of the day Specimen Anatomical Collection Method Collection Time Receive d Time (Source) Location / / Volume Laterality Blood specimen 08/14/2017 3:56 AM 018 3:56 (specimen) EST AM EST Yonathan Smith MD POINT OF CARE TEST ORDERABLE S Performing Organization Address City/State/ZIP Code [place] [address] POCT Glucose (08/13/2017 11:13 PM EST) athologist Signature POC Glucose 118 65 - 199 [place] [facility] mg/dL [facility] Comment: Supplemental ranges: <140 mg/dL before meals <180 mg/dL all other times of the day Specimen Anatomical Collection Method Collection Time Receive d Time (Source) Location / / Volume Laterality Blood specimen 08/13/2017 11:13 8 (specimen) PM EST 11:13 PM EST Yonathan Smith MD POINT OF CARE TEST ORDERABLE S Performing Organization Address City/[facility]/ZIP Code [place] [address] (ABNORMAL) POCT Glucose (08/13/2017 8:08 PM EST) athologist Signature POC Glucose 204 (H) 65 - 199 [place] [facility] mg/dL [facility] Comment: Supplemental ranges: <140 mg/dL before meals <180 mg/dL all other times of the day Specimen Anatomical Collection Method Collection Time Receive d Time (Source) Location / / Volume Laterality Blood specimen 08/13/2017 8:08 PM 018 8:08 (specimen) EST PM EST Yonathan Smith MD POINT OF CARE TEST ORDERABLE S Performing Organization Address City/[facility]/ZIP Code [place] [address] POCT Glucose (08/13/2017 4:02 PM EST) athologist Signature POC Glucose 145 65 - 199 [place] mg/dL [facility] Comment: Supplemental ranges: <140 mg/dL before meals <180 mg/dL all other times of the day Specimen Anatomical Collection Method Collection Time Receive d Time (Source) Location / / Volume Laterality Blood specimen 08/13/2017 4:02 PM 018 4:02 (specimen) EST PM EST Yonathan Smith MD POINT OF CARE TEST ORDERABLE S Performing Organization Address City/State/[place] [address] POCT Glucose (08/13/2017 11:31 AM EST) P athologist Signature POC Glucose 179 65 - 199 [facility]dL [facility] Comment: Supplemental ranges: <140 mg/dL before meals <180 mg/dL all other times of the day Specimen Anatomical Collection Method Collection Time Receive d Time (Source) Location / / Volume Laterality Blood specimen 08/13/2017 11:31 8 (specimen) AM EST 11:31 AM EST Yonathan Smith MD POINT OF CARE TEST ORDERABLE S Performing Organization Address City/[facility]/[place] [address] (ABNORMAL) POCT Glucose (08/13/2017 10:16 AM EST) athologist Signature POC Glucose 211 (H) 65 - 199 [facility]dL [facility] Comment: Supplemental ranges: <140 mg/dL before meals <180 mg/dL all other times of the day Specimen Anatomical Collection Method Collection Time Receive d Time (Source) Location / / Volume Laterality Blood specimen 08/13/2017 10:16 8 (specimen) AM EST 10:16 AM EST Yonathan Smith MD POINT OF CARE TEST ORDERABLE S Performing Organization Address City/[facility]/ZIP Code Phon e Number [address] JULIAN, legs, multiple levels (08/13/2017 7:42 AM EST) Component Value Ref Test Analysis Performed At Patholo gist Range Method Time Signature VB Text Department: Vascular Surgery Lab VASCUBASE Report Patient: [id number] (GREGORY HOANG) CPT: 95920 ICD10: I99.8 Referring Physician: YONATHAN SMITH ?? Indications: s/p R 1,2,3 toe amps with red left foot, need n ew baseline Diabetes mellitus: yes ICD10 Diagnosis Code: I99.8 Findings: Right ?Pressure (mm Hg) ?? JULIAN ??Waveform ?TBI ?? Brachial Artery ?138 ? Dorsalis Pedis (Ankle) Arter y ?132 ? 0.94 ??[place]- Biphasic ? Posterior Tibial (Ankle) Art anila ??154 ? 1.10 ??[place]-Biphasic ? Fourth Toe ? 67 ? 0.48 [...] 156 65 - 199 [place] mg/dL [facility] Comment: Supplemental ranges: <140 mg/dL before meals <180 mg/dL all other times of the day Specimen Anatomical Collection Method Collection Time Receive d Time (Source) Location / / Volume Laterality Blood specimen 08/13/2017 7:33 AM 018 7:33 (specimen) EST AM EST Yonathan Smith MD POINT OF CARE TEST ORDERABLE S Performing Organization Address City/State/[place] [address] (ABNORMAL) Differential, Automated (08/13/2017 5:33 AM EST) [facility] Method Time Signature Neutrophils % 77.8 % [facility] LABORATORY Neutr Abs (ANC) 7.83 (H) 1.70 - [facility] 6.10 [facility] x10(3)/[facility] L LABORATORY Lymphocytes % 8.4 % [facility] LABORATORY Lymphocytes Abs 0.8 (L) 0.9 - 3.2 [facility] x10(3)/[facility] LABORATORY Monocytes % 8.3 % [facility] LABORATORY Monocyte Abs 0.8 0.3 - 0.9 [facility] x10(3)/[facility] LABORATORY Eosinophils % 4.6 % [facility] LABORATORY Eosinophils Abs 0.5 (H) 0.0 - 0.4 [facility] x10(3)/[facility] LABORATORY Basophils % 0.5 % [facility] LABORATORY Basophils Abs 0.0 0.0 - 0.1 [facility] x10(3)/[facility] LABORATORY Immature Gran % [...] 0.00 - 0.04 x10(3)/mcL MAR Y [facility] LABORATORY Specimen Anatomical Collection Method Collection Time Receive d Time (Source) Location / / Volume Laterality Blood specimen 08/13/2017 5:33 AM 018 6:04 (specimen) EST AM EST Resulting Agency Comment Spec In Lab Yonathan Smith MD HEMATOLOGY ORDERABLES Performing Organization Address City/State/ZIP Code Phon e Number [address] (ABNORMAL) Hemogram (08/13/2017 5:33 AM EST) Analysis Performed At Patho logist Time Signature WBC 10.1 (H) 4.0 - 9.5 [facility] x10(3)/[facility] LABORATORY RBC 3.21 (L) 4.58 - [facility].54 [facility] x10(6)/[facility] LABORATORY Hemoglobin 9.2 (L) 13.7 - [facility] 16.5 gm/dL [facility] LABORATORY Hematocrit 29.6 (L) 40.5 - [facility] 48.5 % [facility] LABORATORY MCV 92.2 82.9 - [facility] 93.1 [facility] LABORATORY MCH 28.7 27.5 - [facility] 32.1 pg [facility] LABORATORY MCHC 31.1 (L) 32.0 - [facility] 35.[facility] gm/dL [facility] LABORATORY Platelets 263 145 - 357 [facility] x10(3)/[facility] LABORATORY RDWSD 54.8 (H) 36.0 - [facility] 45.0 [facility] LABORATORY RDWCV 16.4 (H) 11.4 - [facility] 13.8 % [facility] LABORATORY MPV 9.2 7.6 - 12.9 [facility] LABORATORY nRBC % Auto 0.0 % [facility] LABORATORY nRBC Abs Auto 0.000 0.000 - [facility] 0.000 [facility] x10(3)/[facility] LABORATORY Specimen Anatomical Collection Method Collection Time Receive d Time (Source) Location / / Volume Laterality Blood specimen 08/13/2017 5:33 AM 018 6:04 (specimen) EST AM EST Resulting Agency Comment Spec In Lab Yonathan Smith MD HEMATOLOGY ORDERABLES Performing Organization Address City/State/[place] [address] (ABNORMAL) Prothrombin Time (08/13/2017 [...] Organization Address City/State/ZIP Code Phon e Number [place] [id number] (ABNORMAL) Basic Metabolic Panel (non-fasting) (08/13/2017 5:33 AM EST) athologist Signature Glucose Lvl 126 65 - 199 [facility] mg/dL [facility] LABORATORY Comment: [...] Calcium 7.9 (L) 8.5 - 10.5 mg/dL [facility] LABORATORY Estimated GFR >60 >=60 [facility] LABORATORY Comment: The reported eGFR should be multiplied b y 1.2 for patients. The MDRD is not an appropriate measure o f renal function for patients with body mass extremes or in patients with acute kidney failure. http://[employer]/DHnkdep http://[employer]/DHMCnkf Specimen Anatomical Collection Method Collection Time Receive d Time (Source) Location / / Volume Laterality Blood specimen 08/13/2017 5:33 AM 018 6:04 (specimen) EST AM EST Resulting Agency Comment Spec In Lab Yonathan Smith MD CHEMISTRY ORDERABLES Performing Organization Address City/[facility]/ZIP [facility] Phon e Number [address] POCT Glucose (08/13/2017 4:29 AM EST) athologist Signature POC Glucose 111 65 - 199 [facility]dL [facility] Comment: Supplemental ranges: <140 mg/dL before meals <180 mg/dL all other times of the day Specimen Anatomical Collection Method Collection Time Receive d Time (Source) Location / / Volume Laterality Blood specimen 08/13/2017 4:29 AM 018 4:29 (specimen) EST AM EST Yonathan Smith MD POINT OF CARE TEST ORDERABLE S Performing Organization Address City/[facility]/ZIP Code Phon e Number [address] POCT Glucose (08/12/2017 11:28 PM EST) athologist Signature POC Glucose 164 65 - 199 [facility] Comment: Supplemental ranges: <140 mg/dL before meals <180 mg/dL all other times of the day Specimen Anatomical Collection Method Collection Time Receive d Time (Source) Location / / Volume Laterality Blood specimen 08/12/2017 11:28 8 (specimen) PM EST 11:28 PM EST Yonathan Smith MD POINT OF CARE TEST ORDERABLE S Performing Organization Address City/[facility]/[place] [address] (ABNORMAL) POCT Glucose (08/12/2017 7:40 PM EST) athologist Signature POC Glucose 209 (H) 65 - 199 [facility] SU mg/dL [facility] Comment: Supplemental ranges: <140 mg/dL before meals <180 mg/dL all other times of the day Specimen Anatomical Collection Method Collection Time Receive d Time (Source) Location / / Volume Laterality Blood specimen 08/12/2017 7:40 PM 018 7:40 (specimen) EST PM EST Yonathan Smith MD POINT OF CARE TEST ORDERABLE S Performing Organization Address City/State/ZIP Code Phon e Number [address] POCT Glucose (08/12/2017 4:24 PM EST) athologist Signature POC Glucose 161 65 - 199 [facility]dL [facility] Comment: Supplemental ranges: <140 mg/dL before meals <180 mg/dL all other times of the day Specimen Anatomical Collection Method Collection Time Receive d Time (Source) Location / / Volume Laterality Blood specimen 08/12/2017 4:24 PM 018 4:24 (specimen) EST PM EST Yonathan Smith MD POINT OF CARE TEST ORDERABLE S Performing Organization Address City/State/[place] [address] POCT Glucose (08/12/2017 12:00 PM EST) athologist Signature POC Glucose 167 65 - 199 [place] [facility] mg/dL [facility] Comment: Supplemental ranges: <140 mg/dL before meals <180 mg/dL all other times of the day Specimen Anatomical Collection Method Collection Time Receive d Time (Source) Location / / Volume Laterality Blood specimen 08/12/2017 12:00 8 (specimen) PM EST 12:00 PM EST Yonathan Smith MD POINT OF CARE TEST ORDERABLE S Performing Organization Address City/State/[place] [address] POCT Glucose (08/12/2017 7:25 AM EST) P athologist Signature POC Glucose 152 65 - 199 [facility] mg/dL [facility] Comment: Supplemental ranges: <140 mg/dL before meals <180 mg/dL all other times of the day Specimen Anatomical Collection Method Collection Time Receive d Time (Source) Location / / Volume Laterality Blood specimen 08/12/2017 7:25 AM 018 7:25 (specimen) EST AM EST Yonathan Smith MD POINT OF CARE TEST ORDERABLE S Performing Organization Address City/State/[place] [address] (ABNORMAL) Differential, Automated (08/12/2017 6:29 AM EST) Patholo gist Method Time Signature Neutrophils % 78.7 % [facility] LABORATORY Neutr Abs (ANC) 7.94 (H) 1.70 - [facility] 6.10 [facility] x10(3)/[facility] LABORATORY Lymphocytes % 8.8 % [facility] LABORATORY Lymphocytes Abs 0.9 0.9 - 3.2 [facility] x10(3)/[facility] LABORATORY Monocytes % 7.8 % [facility] LABORATORY Monocyte Abs 0.8 0.3 - 0.9 [facility] x10(3)/[facility] LABORATORY Eosinophils % 3.9 % [facility] LABORATORY Eosinophils Abs 0.4 0.0 - 0.4 [facility] x10(3)/[facility] LABORATORY Basophils % 0.3 % [facility] LABORATORY Basophils Abs 0.0 0.0 - 0.1 [facility] x10(3)/[facility] LABORATORY Immature Gran % 0.50 % [place] [...] Address City/State/[place] [address] (ABNORMAL) Hemogram (08/12/2017 6:29 AM EST) Analysis Performed At Patho logist Time Signature WBC 10.1 (H) 4.0 - 9.5 [facility] x10(3)/[facility] LABORATORY RBC 3.02 (L) 4.58 - [facility] 5.54 [facility] x10(6)/[facility] LABORATORY Hemoglobin 8.7 (L) 13.7 - [facility] 16.5 gm/dL [facility] LAB[facility]ATORY Hematocrit 28.1 (L) 40.5 - [facility] 48.5 % [facility] LABORATORY MCV 93.0 82.9 - [facility] 93.1 [facility] LABORATORY MCH 28.8 27.5 - [facility] 32.1 pg [facility] LABORATORY MCHC 31.0 (L) 32.0 - [facility] 35.7 gm/dL [facility] LABORATORY Platelets 223 145 - 357 [facility] x10(3)/[facility] LABORATORY RDWSD 56.1 (H) 36.0 - [facility] 45.0 [facility] LABORATORY RDWCV 16.4 (H) 11.4 - [facility] SU 13.8 % [facility] LABORATORY MPV 9.0 7.6 - 12.9 [facility] LABORATORY nRBC % Auto 0.0 % [facility] LABORATORY nRBC Abs Auto 0.000 0.000 - [facility] SU 0.000 [facility] x10(3)/[facility] LABORATORY Specimen Anatomical Collection Method Collection Time Receive d Time (Source) Location / / Volume Laterality Blood specimen 08/12/2017 6:29 AM 018 6:38 (specimen) EST AM EST Resulting Agency Comment Spec In Lab Yonathan Smith MD HEMATOLOGY ORDERABLES Performing Organization Address City/[facility]/[place] [address] (ABNORMAL) Prothrombin Time (08/12/2017 [...] City/[facility]/[place] [address] (ABNORMAL) Basic Metabolic Panel (non-fasting) (08/12/2017 6:29 AM EST) athologist Signature Glucose Lvl 151 65 - 199 [facility] mg/dL [facility] LABORATORY Comment: [...] Calcium 7.9 (L) 8.5 - 10.5 mg/dL [facility] LABORATORY Estimated GFR >60 >=60 [facility] LABORATORY Comment: The reported eGFR should be multiplied b y 1.2 for patients. The MDRD is not an appropriate measure o f renal function for patients with body mass extremes or in patients with acute kidney failure. http://[employer]/DHnkdep http://Get[employer]/DHMCnkf Specimen Anatomical Collection Method Collection Time Receive d Time (Source) Location / / Volume Laterality Blood specimen 08/12/2017 6:29 AM 018 6:38 (specimen) EST AM EST Resulting Agency Comment Spec In Lab Yonathan Smith MD CHEMISTRY ORDERABLES Performing Organization Address City/[facility]/ZIP Code Phon e Number [address] POCT Glucose (08/12/2017 4:08 AM EST) athologist Signature POC Glucose 181 65 - 199 [facility]dL [facility] Comment: Supplemental ranges: <140 mg/dL before meals <180 mg/dL all other times of the day Specimen Anatomical Collection Method Collection Time Receive d Time (Source) Location / / Volume Laterality Blood specimen 08/12/2017 4:08 AM 018 4:08 (specimen) EST AM EST Yonathan Smith MD POINT OF CARE TEST ORDERABLE S Performing Organization Address City/[facility]/[place] [address] (ABNORMAL) POCT Glucose (08/12/2017 12:17 AM EST) athologist Signature POC Glucose 221 (H) 65 - 199 [facility]dL [facility] Comment: Supplemental ranges: <140 mg/dL before meals <180 mg/dL all other times of the day Specimen Anatomical Collection Method Collection Time Receive d Time (Source) Location / / Volume Laterality Blood specimen 08/12/2017 12:17 8 (specimen) AM EST 12:17 AM EST Yonathan Smith MD POINT OF CARE TEST ORDERABLE S Performing Organization Address City/State/[place] [address] (ABNORMAL) POCT Glucose (08/11/2017 8:52 PM EST) athologist Signature POC Glucose 221 (H) 65 - 199 [place] [facility] mg/dL [facility] Comment: Supplemental ranges: <140 mg/dL before meals <180 mg/dL all other times of the day Specimen Anatomical Collection Method Collection Time Receive d Time (Source) Location / / Volume Laterality Blood specimen 08/11/2017 8:52 PM 018 8:52 (specimen) EST PM EST Yonathan Smith MD POINT OF CARE TEST ORDERABLE S Performing Organization Address City/[facility]/[place] [address] POCT Glucose (08/11/2017 5:59 PM EST) athologist Signature POC Glucose 169 65 - 199 [place] [facility] mg/dL [facility] Comment: Supplemental ranges: <140 mg/dL before meals <180 mg/dL all other times of the day Specimen Anatomical Collection Method Collection Time Receive d Time (Source) Location / / Volume Laterality Blood specimen 08/11/2017 5:59 PM 018 5:59 (specimen) EST PM EST Yonathan Smith MD POINT OF CARE TEST ORDERABLE S Performing Organization Address City/State/[place] [address] (ABNORMAL) POCT Glucose (08/11/2017 4:08 PM EST) athologist Signature POC Glucose 240 (H) 65 - 199 [place] [facility] mg/dL [facility] Comment: Supplemental ranges: <140 mg/dL before meals <180 mg/dL all other times of the day Specimen Anatomical Collection Method Collection Time Receive d Time (Source) Location / / Volume Laterality Blood specimen 08/11/2017 4:08 PM 018 4:08 (specimen) EST PM EST Yonathan Smith MD POINT OF CARE TEST ORDERABLE S Performing Organization Address City/State/ZIP Code Phon e Number [address] POCT Glucose (08/11/2017 12:04 PM EST) athologist Signature POC Glucose 182 65 - 199 [facility] Comment: Supplemental ranges: <140 mg/dL before meals <180 mg/dL all other times of the day Specimen Anatomical Collection Method Collection Time Receive d Time (Source) Location / / Volume Laterality Blood specimen 08/11/2017 12:04 8 (specimen) PM EST 12:04 PM EST Yonathan Smith MD POINT OF CARE TEST ORDERABLE S Performing Organization Address City/[facility]/[place] [address] POCT Glucose (08/11/2017 7:31 AM EST) athologist Signature POC Glucose 156 65 - 199 [facility] mg[facility]dL [facility] Comment: Supplemental ranges: <140 mg/dL before meals <180 mg/dL all other times of the day Specimen Anatomical Collection Method Collection Time Receive d Time (Source) Location / / Volume Laterality Blood specimen 08/11/2017 7:31 AM 018 7:31 (specimen) EST AM EST Yonathan Smith MD POINT OF CARE TEST ORDERABLE S Performing Organization Address City/State/ZIP Code Phon e Number [address] (ABNORMAL) Differential, Automated (08/11/2017 6:16 AM EST) [facility] gist Method Time Signature Neutrophils % 83.7 % [facility] LABORATORY Neutr Abs (ANC) 10.76 (H) 1.70 - [facility] 6.10 [facility] x10(3)/[facility] L LABORATORY Lymphocytes % 6.0 % [facility] LABORATORY Lymphocytes Abs 0.8 (L) 0.9 - 3.2 [facility] x10(3)/[facility] LABORATORY Monocytes % 7.5 % [facility] LABORATORY Monocyte Abs 1.0 (H) 0.3 - 0.9 [facility] x10(3)/[facility] LABORATORY Eosinophils % 2.0 % [facility] LABORATORY Eosinophils Abs 0.3 0.0 - 0.4 [facility] x10(3)/[facility] LABORATORY Basophils % 0.3 % [facility] LABORATORY Basophils Abs 0.0 0.0 - 0.1 [facility] x10(3)/[facility] LABORATORY Immature Gran % 0.50 % [place] [...] Address City/State/[place] [address] (ABNORMAL) Hemogram (08/11/2017 6:16 AM EST) Analysis Performed At Patho logist Time Signature WBC 12.9 (H) 4.0 - 9.5 [facility] x10(3)/[facility] LABORATORY RBC 3.28 (L) 4.58 - [facility] 5.54 [facility] x10(6)/[facility] LABORATORY Hemoglobin 9.5 (L) 13.7 - [facility] 16.5 gm/dL [facility] LABORATORY Hematocrit 29.8 (L) 40.5 - [place] [facility] 48.5 % [facility] LABORATORY MCV 90.9 82.9 - [facility] 93.1 [facility] LABORATORY MCH 29.0 27.5 - [place] [facility] 32.1 [facility] LABORATORY MCHC 31.9 (L) 32.0 - [place] [facility] 35.7 gm/dL [facility] Platelets 236 145 - 357 [facility] x10(3)/[facility] LABORATORY RDWSD 53.5 (H) 36.0 - [place] [facility] 45.0 [facility] LABORATORY RDWCV 16.3 (H) 11.4 - [facility] 13.8 % [facility] LABORATORY MPV 8.8 7.6 - 12.9 [facility] nRBC % Auto 0.0 % [facility] nRBC Abs Auto 0.000 0.000 - [facility] 0.000 [facility] x10(3)/[facility] LABORATORY Specimen Anatomical Collection Method Collection Time Receive d Time (Source) Location / / Volume Laterality Blood specimen 08/11/2017 6:16 AM 018 6:24 (specimen) EST AM EST Resulting Agency Comment Spec In Lab Yonathan Smith MD HEMATOLOGY ORDERABLES Performing Organization Address City/State/ZIP Code Phon e Number [place] [id number] (ABNORMAL) Prothrombin Time (08/11/2017 [...] Address City/State/[place] [address] Basic Metabolic Panel (non-fasting) (08/11/2017 6:16 AM EST) P athologist Signature Glucose Lvl 139 65 - 199 [facility] mg/dL [facility] LABORATORY Comment: [...] or in patients with acute kidney failure. http://[employer]Lemon/DHnkdep http://[employer]Lemon/DHMCnkf Specimen Anatomical Collection Method Collection Time Receive d Time (Source) Location / / Volume Laterality Blood specimen 08/11/2017 6:16 AM 018 6:24 (specimen) EST AM EST Resulting Agency Comment Spec In Lab Yonathan Smith MD CHEMISTRY ORDERABLES Performing Organization Address City/State/ZIP Code Phon e Number [address] POCT Glucose (08/11/2017 4:07 AM EST) athologist Signature POC Glucose 162 65 - 199 [place] [facility] mg/dL [facility] LABORATORY Comment: Supplemental ranges: <140 mg/dL before meals <180 mg/dL all other times of the day Specimen Anatomical Collection Method Collection Time Receive d Time (Source) Location / / Volume Laterality Blood specimen 08/11/2017 4:07 AM 018 4:07 (specimen) EST AM EST Yonathan Smith MD POINT OF CARE TEST ORDERABLE S Performing Organization Address City/[facility]/ZIP Code Phon e Number [place] [address] POCT Glucose (08/10/2017 11:59 PM EST) athologist Signature POC Glucose 166 65 - 199 [place] [facility] mg/dL [facility] LABORATORY Comment: Supplemental ranges: <140 mg/dL before meals <180 mg/dL all other times of the day Specimen Anatomical Collection Method Collection Time Receive d Time (Source) Location / / Volume Laterality Blood specimen 08/10/2017 11:59 8 (specimen) PM EST 11:59 PM EST Yonathan Smith MD POINT OF CARE TEST ORDERABLE S Performing Organization Address City/[facility]/ZIP Code Phon e Number [place] [address] POCT Glucose (08/10/2017 8:12 PM EST) athologist Signature POC Glucose 156 65 - 199 [place] [facility] mg/dL [facility] LABORATORY Comment: Supplemental ranges: <140 mg/dL before meals <180 mg/dL all other times of the day Specimen Anatomical Collection Method Collection Time Receive d Time (Source) Location / / Volume Laterality Blood specimen 08/10/2017 8:12 PM 018 8:12 (specimen) EST PM EST Yonathan Smith MD POINT OF CARE TEST ORDERABLE S Performing Organization Address City/State/[place] [address] (ABNORMAL) POCT Glucose (08/10/2017 4:42 PM EST) P athologist Signature POC Glucose 211 (H) 65 - 199 [facility]dL [facility] Comment: Supplemental ranges: <140 mg/dL before meals <180 mg/dL all other times of the day Specimen Anatomical Collection Method Collection Time Receive d Time (Source) Location / / Volume Laterality Blood specimen 08/10/2017 4:42 PM 018 4:42 (specimen) EST PM EST Yonathan Smith MD POINT OF CARE TEST ORDERABLE S Performing Organization Address City/State/ZIP Code Phon e Number [address] (ABNORMAL) Differential, Automated (08/10/2017 2:30 PM EST) Patholo gist Method Time Signature Neutrophils % 87.6 % [facility] LABORATORY Neutr Abs (ANC) 9.90 (H) 1.70 - [facility] 6.10 [facility] x10(3)/[facility] L LABORATORY Lymphocytes % 4.3 % [facility] LABORATORY Lymphocytes Abs 0.5 (L) 0.9 - 3.2 [facility] x10(3)/[facility] LABORATORY Monocytes % 6.0 % [facility] LABORATORY Monocyte Abs 0.7 0.3 - 0.9 [facility] x10(3)/[facility] LABORATORY Eosinophils % 1.1 % [facility] LABORATORY Eosinophils Abs 0.1 0.0 - 0.4 [facility] x10(3)/[facility] LABORATORY Basophils % 0.4 % [facility] LABORATORY Basophils Abs 0.0 0.0 - 0.1 [facility] x10(3)/[facility] LABORATORY Immature Gran % [...] Address City/State/[place] [address] (ABNORMAL) Hemogram (08/10/2017 2:30 PM EST) Analysis Performed At Patho logist Time Signature WBC 11.3 (H) 4.0 - 9.5 [facility] x10(3)/[facility] LABORATORY RBC 3.13 (L) 4.58 - [facility] SU 5.54 [facility] x10(6)/[facility] LABORATORY Hemoglobin 8.9 (L) 13.7 - [facility] 16.5 gm/dL [facility] LABORATORY Hematocrit 28.4 (L) 40.5 - [facility] 48.5 % [facility] LABORATORY MCV 90.7 82.9 - [facility] 93.1 [facility] LABORATORY MCH 28.4 27.5 - [facility] SU 32.1 pg [facility] LABORATORY MCHC 31.3 (L) 32.0 - [facility] 35.7 gm/dL [facility] LABORATORY Platelets 213 145 - 357 [facility] x10(3)/[facility] LABORATORY RDWSD 53.7 (H) 36.0 - [facility] SU 45.0 [facility] LABORATORY RDWCV 16.4 (H) 11.4 - [facility] SU 13.8 % [facility] LABORATORY MPV 8.9 7.6 - 12.9 [facility] LABORATORY nRBC % Auto 0.0 % [facility] LABORATORY nRBC Abs Auto 0.000 0.000 - [facility] SU 0.000 [facility] x10(3)/[facility] LABORATORY Specimen Anatomical Collection Method Collection Time Receive d Time (Source) Location / / Volume Laterality Blood specimen 08/10/2017 2:30 PM 018 2:48 (specimen) EST PM EST Resulting Agency Comment Spec In Lab Yonathan Smith MD HEMATOLOGY ORDERABLES Performing Organization Address City/State/[place] [address] (ABNORMAL) POCT Glucose (08/10/2017 1:50 PM EST) athologist Signature POC Glucose 243 (H) 65 - 199 [facility] LAB[facility]ORY Comment: Supplemental ranges: <140 mg/dL before meals <180 mg/dL all other times of the day Specimen Anatomical Collection Method Collection Time Receive d Time (Source) Location / / Volume Laterality Blood specimen 08/10/2017 1:50 PM 018 1:50 (specimen) EST PM EST Yonathan Smith MD POINT OF CARE TEST ORDERABLE S Performing Organization Address City/[facility]/[place] [address] POCT Glucose (08/10/2017 11:21 AM EST) athologist Signature POC Glucose 156 65 - 199 [facility] mg[facility]dL [facility] LAB[facility] Comment: Supplemental ranges: <140 mg/dL before meals <180 mg/dL all other times of the day Specimen Anatomical Collection Method Collection Time Receive d Time (Source) Location / / Volume Laterality Blood specimen 08/10/2017 11:21 8 (specimen) AM EST 11:21 AM EST Yonathan Smith MD POINT OF CARE TEST ORDERABLE S Performing Organization Address City/State/[place] [address] (ABNORMAL) Differential, Automated (08/10/2017 10:28 AM EST) [facility] gist Method Time Signature Neutrophils % 85.3 % [facility] LABORATORY Neutr Abs (ANC) 9.43 (H) 1.70 - [facility] SU 6.10 [facility] x10(3)/[facility] L LABORATORY Lymphocytes % 5.5 % [facility] LABORATORY Lymphocytes Abs 0.6 (L) 0.9 - 3.2 [facility] x10(3)/[facility] LABORATORY Monocytes % 5.9 % [facility] LABORATORY Monocyte Abs 0.6 0.3 - 0.9 [facility] x10(3)/[facility] LABORATORY Eosinophils % 2.1 % [facility] LABORATORY Eosinophils Abs 0.2 0.0 - 0.4 [facility] x10(3)/[facility] LABORATORY Basophils % 0.4 % [facility] LABORATORY Basophils Abs 0.0 0.0 - 0.1 [facility] x10(3)/[facility] LABORATORY Immature Gran % 0.80 % [place] [...] Address City/State/[place] [address] (ABNORMAL) Hemogram (08/10/2017 10:28 AM EST) Analysis Performed At Patho logist Time Signature WBC 11.0 (H) 4.0 - 9.5 [facility] x10(3)/[facility] LABORATORY RBC 3.02 (L) 4.58 - [facility] 5.54 [facility] x10(6)/[facility] LABORATORY Hemoglobin 8.8 (L) 13.7 - [facility] [facility] 16.5 gm/dL [facility] Hematocrit 28.1 (L) 40.5 - BARBARA DAVIS 48.5 % [facility] MCV 93.0 82.9 - [facility]1 [facility] LABORATORY MCH 29.1 27.5 - BARBARA OLIVASCK 32.1 pg [facility] MCHC 31.3 (L) 32.0 - BARBARA DAVIS 35.7 gm/dL [facility] Platelets 207 145 - 357 [place] x10(3)/[facility] LABORATORY RDWSD 55.3 (H) 36.0 - BARBARA OLIVASCK 45.0 [facility] LABORATORY RDWCV 16.4 (H) 11.4 - BARBARA SU 13.8 % [facility] MPV 9.0 7.6 - 12.9 [facility] LABORATORY nRBC % Auto 0.0 % [facility] nRBC Abs Auto 0.000 0.000 - BARBARA ZHAOSU 0.000 [facility] x10(3)/[facility] LABORATORY Specimen Anatomical Collection Method Collection Time Receive d Time (Source) Location / / Volume Laterality Blood specimen 08/10/2017 10:28 8 (specimen) AM EST 10:35 AM EST Resulting Agency Comment Spec In Lab Yonathan Smith MD HEMATOLOGY ORDERABLES Performing Organization Address City/State/ZIP Code Phon e Number [place] [id number] VS Angiogram/intervention (vascular) (08/10/2017 [...] 2.5x80 5. Completion RLE angiogram 6. L LITIGATION ASSOCIATE angiogram 7. 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 - L LITIGATION ASSOCIATE angriogram demonstrated: High fe moral bifurcation over the proximal half of the femoral head. L LITIGATION ASSOCIATE access in the distal L LITIGATION ASSOCIATE. - Closure device: Mynx Technical Procedure: [...] for a 45cm 5F Destination. V18 and [place] a nd QuickCross catheters were used to [...] bifurcation. Access appeared in the distal R LITIGATION ASSOCIATE. Closure and sheath removal was performed [...] 2.5x80 5. Completion RLE angiogram 6. L LITIGATION ASSOCIATE angiogram 7. 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 - L LITIGATION ASSOCIATE angriogram demonstrated: High fe moral bifurcation over the proximal half of the femoral head. L LITIGATION ASSOCIATE access in the distal L LITIGATION ASSOCIATE. - Closure device: Mynx Technical Procedure: [...] for a 45cm 5F Destination. V18 and [place] a nd QuickCross catheters were used to [...] bifurcation. Access appeared in the distal R LITIGATION ASSOCIATE. Closure and sheath removal was performed [...] [facility] 6.10 [facility] x10(3)/[facility] LABORATORY Lymphocytes % 8.8 % [facility] Lymphocytes Abs 1.0 0.9 - 3.2 [facility](3[facility] LABORATORY Monocytes % 8.3 % [facility] Monocyte Abs 0.9 0.3 - 0.9 [facility] x[facility](3[facility] LABORATORY Eosinophils % 2.0 % [facility] Eosinophils Abs 0.2 0.0 - 0.4 [facility] x10(3)/[facility] LABORATORY Basophils % 0.4 % [facility] Basophils Abs 0.0 0.0 - 0.1 [facility] x10(3)/[facility] LABORATORY Immature Gran % [...] Address City/State/[place] [address] (ABNORMAL) Hemogram (08/10/2017 5:50 AM EST) Analysis Performed At Patho logist Time Signature WBC 11.3 (H) 4.0 - 9.5 [facility] x10(3)/[facility] LABORATORY RBC 3.15 (L) 4.58 - [facility] 5.54 [facility] x10(6)/[facility] LABORATORY Hemoglobin 8.9 (L) 13.7 - [facility] 16.5 gm/dL [facility] Hematocrit 29.0 (L) 40.5 - [facility] 48.5 % [facility] MCV 92.1 82.9 - [facility] 93.1 [facility] LABORATORY MCH 28.3 27.5 - BARBARA SU 32.1 pg [facility] MCHC 30.7 (L) 32.0 - [facility] 35.7 gm/dL [facility] Platelets 231 145 - 357 [facility] x10(3)/[facility] LABORATORY RDWSD 53.9 (H) 36.0 - BARBARA SU 45.0 [facility] LABORATORY RDWCV 16.2 (H) 11.4 - [facility] SU 13.8 % [facility] MPV 8.7 7.6 - 12.9 [facility] LABORATORY nRBC % Auto 0.0 % [facility] nRBC Abs Auto 0.000 0.000 - [facility] 0.000 [facility] x10(3)/[facility] LABORATORY Specimen Anatomical Collection Method Collection Time Receive d Time (Source) Location / / Volume Laterality Blood specimen 08/10/2017 5:50 AM 018 5:59 (specimen) EST AM EST Resulting Agency Comment Spec In Lab Yonathan Smith MD HEMATOLOGY ORDERABLES Performing Organization Address City/State/[place] [address] (ABNORMAL) Basic Metabolic Panel (non-fasting) (08/10/2017 5:50 AM EST) P athologist Signature Glucose Lvl 135 65 - 199 [facility] mg/dL [facility] Comment: [...] or in patients with acute kidney failure. http://[employer]Lemon/DHnkdep http://[employer]Lemon/DHMCnkf Specimen Anatomical Collection Method Collection Time Receive d Time (Source) Location / / Volume Laterality Blood specimen 08/10/2017 5:50 AM 018 5:59 (specimen) EST AM EST Resulting Agency Comment Spec In Lab Yonathan Smith MD CHEMISTRY ORDERABLES Performing Organization Address [facility] [place] [address] (ABNORMAL) Prothrombin Time (08/10/2017 [...] HEMATOLOGY ORDERABLES Performing Organization Address City/[facility] [place] [address] (ABNORMAL) POCT Glucose (08/10/2017 4:01 AM EST) athologist Signature POC Glucose 206 (H) 65 - 199 [facility] mg/dL [facility] Comment: Supplemental ranges: <140 mg/dL before meals <180 mg/dL all other times of the day Specimen Anatomical Collection Method Collection Time Receive d Time (Source) Location / / Volume Laterality Blood specimen 08/10/2017 4:01 AM 018 4:01 (specimen) EST AM EST Yonathan Smith MD POINT OF CARE TEST ORDERABLE S Performing Organization Address City/State/[place] [address] POCT Glucose (08/10/2017 2:01 AM EST) athologist Signature POC Glucose 188 65 - 199 BARBARA SU mg/dL [facility] Comment: Supplemental ranges: <140 mg/dL before meals <180 mg/dL all other times of the day Specimen Anatomical Collection Method Collection Time Receive d Time (Source) Location / / Volume Laterality Blood specimen 08/10/2017 2:01 AM 018 2:01 (specimen) EST AM EST Yonathan Smith MD POINT OF CARE TEST ORDERABLE S Performing Organization Address City/[facility]/[place] [address] (ABNORMAL) POCT Glucose (08/09/2017 11:42 PM EST) athologist Signature POC Glucose 283 (H) 65 - 199 [facility] SU mg/dL [facility] Comment: Supplemental ranges: <140 mg/dL before meals <180 mg/dL all other times of the day Specimen Anatomical Collection Method Collection Time Receive d Time (Source) Location / / Volume Laterality Blood specimen 08/09/2017 11:42 8 (specimen) PM EST 11:42 PM EST Yonathan Smith MD POINT OF CARE TEST ORDERABLE S Performing Organization Address City/State/[place] [address] POCT Glucose (08/09/2017 8:55 PM EST) athologist Signature POC Glucose 182 65 - 199 BARBARA SU mg/dL [facility] Comment: Supplemental ranges: <140 mg/dL before meals <180 mg/dL all other times of the day Specimen Anatomical Collection Method Collection Time Receive d Time (Source) Location / / Volume Laterality Blood specimen 08/09/2017 8:55 PM 018 8:55 (specimen) EST PM EST Yonathan Smith MD POINT OF CARE TEST ORDERABLE S Performing Organization Address City/[facility]/[place] [address] (ABNORMAL) APTT (08/09/2017 6:42 PM EST) athologist Signature PTT 90 (H) 25 - 35 sec [facility] Comment: The recommended therapeutic range for fu ll dose, unfractionated heparin at [facility] is 80 ? 114 seconds. The use [...] City/[facility]/[place] [address] POCT Glucose (08/09/2017 4:41 PM EST) athologist Signature POC Glucose 195 65 - 199 [facility] Comment: Supplemental ranges: <140 mg/dL before meals <180 mg/dL all other times of the day Specimen Anatomical Collection Method Collection Time Receive d Time (Source) Location / / Volume Laterality Blood specimen 08/09/2017 4:41 PM 018 4:41 (specimen) EST PM EST Yonathan Smith MD POINT OF CARE TEST ORDERABLE S Performing Organization Address City/[facility]/[place] [address] POCT Glucose (08/09/2017 12:29 PM EST) athologist Signature POC Glucose 140 65 - 199 [facility]dL [facility] Comment: Supplemental ranges: <140 mg/dL before meals <180 mg/dL all other times of the day Specimen Anatomical Collection Method Collection Time Receive d Time (Source) Location / / Volume Laterality Blood specimen 08/09/2017 12:29 8 (specimen) PM EST 12:29 PM EST Yonathan Smith MD POINT OF CARE TEST ORDERABLE S Performing Organization Address [facility]/ZIP Code Phon e Number [address] POCT Glucose (08/09/2017 9:59 AM EST) P athologist Signature POC Glucose 135 65 - 199 [facility] mg/dL [facility] Comment: Supplemental ranges: <140 mg/dL before meals <180 mg/dL all other times of the day Specimen Anatomical Collection Method Collection Time Receive d Time (Source) Location / / Volume Laterality Blood specimen 08/09/2017 9:59 AM 018 9:59 (specimen) EST AM EST Yonathan Smith MD POINT OF CARE TEST ORDERABLE S Performing Organization Address [facility]/[place] [address] Specimen to Pathology (08/09/2017 [...] City/[facility]/[place] [address] Surgical Pathology Report (08/09/2017 8:40 AM EST) Component Value Ref Test Analysis Performed At Patholo gist Range Method Time Signature Surgical [id number] ? Location: [facility]; [facility]; A [facility] Report The signing pathologist has [...] Henrique Flower Verified: ??08/13/2017 ?Pathologist Performed at: ??-[facility] Dept. of Pathology, [place], [place] CLINICAL INFORMATION Specimen Submitted: A - [...] Address City/State/[place] [address] Anaerobic Culture (08/09/2017 8:30 AM EST) [facility] Method Time Signature Anaerobic No anaerobic [place] SU Culture organisms [facility] LABORATORY Specimen Anatomical Collection Method Collection [...] City/[facility]/[place] [address] (ABNORMAL) Abscess/Wound Aspirate Culture (08/09/2017 8:30 AM EST) [facility] Method Time Signature Abscess/Wound Moderate mixed [facility] Aspirate bacterial [place] Culture morphotypes [facility] normal LABORATORY cutaneous leroy (A) Gram Stain Rare White Blood Cells BARBARA Few Gram Positive Cocci in pairs [place] () [facility] Organism Gram Positive [place]A Cocci in pairs [place] () [facility] Specimen Anatomical [...] City/[facility]/ZIP Code [place] [address] POCT Glucose (08/09/2017 4:28 AM EST) P athologist Signature POC Glucose 128 65 - 199 [facility]dL [facility] Comment: Supplemental ranges: <140 mg/dL before meals <180 mg/dL all other times of the day Specimen Anatomical Collection Method Collection Time Receive d Time (Source) Location / / Volume Laterality Blood specimen 08/09/2017 4:28 AM 018 4:28 (specimen) EST AM EST Yonathan Smith MD POINT OF CARE TEST ORDERABLE S Performing Organization Address City/State/[place] [address] ABORH Recheck Status (08/09/2017 [...] Organization Address City/State/[place] [address] Antibody screen (08/09/2017 1:10 AM EST) [facility] Method [place] Signature Ab Screen Negative [facility] LABORATORY Expires at 08/12/2017 [facility] 2359 on: [facility] Specimen Anatomical Collection Method Collection Time Receive d Time (Source) Location / / Volume Laterality Blood specimen 08/09/2017 1:10 AM 018 1:35 (specimen) EST AM EST Resulting Agency Comment Spec In Lab Yonathan Smith MD BLOOD BANK ORDERABLES Performing Organization Address City/State/[place] [address] ABO/Rh Typing (08/09/2017 1:10 [...] Organization Address City/State/[place] [address] (ABNORMAL) APTT (08/09/2017 1:10 AM EST) P athologist Signature PTT 86 (H) 25 - 35 sec [facility] Comment: The recommended therapeutic range for fu ll dose, unfractionated heparin at [facility] is 80 ? 114 seconds. The use [...] Address City/State/[place] [address] (ABNORMAL) Differential, Automated (08/09/2017 1:10 AM EST) [facility] Method Time Signature Neutrophils % 76.2 % [facility] Neutr Abs (ANC) 8.59 (H) 1.70 - [facility] 6.10 [facility] x10(3)/[facility] LABORATORY Lymphocytes % 11.0 % [facility] Lymphocytes Abs 1.2 0.9 - 3.2 [facility] x10(3)/[facility] LABORATORY Monocytes % 8.4 % [facility] Monocyte Abs 1.0 (H) 0.3 - 0.9 [facility] x10(3)/[facility] LABORATORY Eosinophils % 3.5 % [facility] Eosinophils Abs 0.4 0.0 - 0.4 [facility] x10(3)/[facility] LABORATORY Basophils % 0.5 % [facility] Basophils Abs 0.1 0.0 - 0.1 [facility] x10(3)/[facility] LABORATORY Immature Gran % [...] Address City/State/[place] [address] (ABNORMAL) Hemogram (08/09/2017 1:10 AM EST) Analysis Performed At Patho logist Time Signature WBC 11.3 (H) 4.0 - 9.5 [facility] x10(3)/[facility] LABORATORY RBC 3.47 (L) 4.58 - [facility] 5.54 [facility] x10(6)/[facility] LABORATORY Hemoglobin 10.0 (L) 13.7 - [facility] 16.5 gm/dL [facility] Hematocrit 31.9 (L) 40.5 - [facility] 48.5 % [facility] MCV 91.9 82.9 - [facility] 93.1 [facility] LABORATORY MCH 28.8 27.5 - [facility] 32.1 pg [facility] MCHC 31.3 (L) 32.0 - [facility] 35.7 gm/dL [facility] Platelets 234 145 - 357 [facility] x10(3)/[facility] LABORATORY RDWSD 54.0 (H) 36.0 - [facility] SU 45.0 [facility] LABORATORY RDWCV 16.2 (H) 11.4 - [facility] SU 13.8 % [facility] MPV 8.7 7.6 - 12.9 [facility] LABORATORY nRBC % Auto 0.0 % [facility] LABOR[facility]ORY nRBC Abs Auto 0.000 0.000 - [facility] SU 0.000 [facility] x10(3)/[facility] LABORATORY Specimen Anatomical Collection Method Collection Time Receive d Time (Source) Location / / Volume Laterality Blood specimen 08/09/2017 1:10 AM 018 1:19 (specimen) EST AM EST Resulting Agency Comment Spec In Lab Yonathan Smith MD HEMATOLOGY ORDERABLES Performing Organization Address City/[facility]/[place] [address] (ABNORMAL) Prothrombin Time (08/09/2017 [...] City/[facility]/[place] [address] (ABNORMAL) Basic Metabolic Panel (non-fasting) (08/09/2017 1:10 AM EST) P athologist Signature Glucose Lvl 108 65 - 199 [facility] mg/dL [facility] Comment: [...] [facility] LABORATORY Estimated GFR 45 (L) >=60 [facility] Comment: The reported eGFR should be multiplied b y 1.2 for patients. The MDRD is not an appropriate measure o f renal function for patients with body mass extremes or in patients with acute kidney failure. http://[employer]/DHnkdep http://[employer]/DHMCnkf Specimen Anatomical Collection Method Collection Time Receive d Time (Source) Location / / Volume Laterality Blood specimen 08/09/2017 1:10 AM 018 1:19 (specimen) EST AM EST Resulting Agency Comment Spec In Lab Yonathan Smith MD CHEMISTRY ORDERABLES Performing Organization Address City/State/ZIP Code Phon e Number [address] POCT Glucose (08/09/2017 12:05 AM EST) athologist Signature POC Glucose 128 65 - 199 [facility] mg/dL [facility] Comment: Supplemental ranges: <140 mg/dL before meals <180 mg/dL all other times of the day Specimen Anatomical Collection Method Collection Time Receive d Time (Source) Location / / Volume Laterality Blood specimen 08/09/2017 12:05 8 (specimen) AM EST 12:05 AM EST Yonathan Smith MD POINT OF CARE TEST ORDERABLE S Performing Organization Address City/[facility]/[place] [address] (ABNORMAL) POCT Glucose (08/08/2017 7:36 PM EST) athologist Signature POC Glucose 215 (H) 65 - 199 [facility] Comment: Supplemental ranges: <140 mg/dL before meals <180 mg/dL all other times of the day Specimen Anatomical Collection Method Collection Time Receive d Time (Source) Location / / Volume Laterality Blood specimen 08/08/2017 7:36 PM 018 7:36 (specimen) EST PM EST Yoanthan Smith MD POINT OF CARE TEST ORDERABLE S Performing Organization Address City/State/[place] [address] (ABNORMAL) POCT Glucose (08/08/2017 6:23 PM EST) P athologist Signature POC Glucose 216 (H) 65 - 199 [facility]dL [facility] Comment: Supplemental ranges: <140 mg/dL before meals <180 mg/dL all other times of the day Specimen Anatomical Collection Method Collection Time Receive d Time (Source) Location / / Volume Laterality Blood specimen 08/08/2017 6:23 PM 018 6:23 (specimen) EST PM EST Yonathan Smith MD POINT OF CARE TEST ORDERABLE S Performing Organization Address City/[facility]/[place] [address] (ABNORMAL) APTT (08/08/2017 6:00 PM EST) P athologist Signature PTT 97 (H) 25 - 35 sec [facility] Comment: The recommended therapeutic range for fu ll dose, unfractionated heparin at [facility] is 80 ? 114 seconds. The use [...] City/[facility]/[place] [address] POCT Glucose (08/08/2017 4:42 PM EST) athologist Signature POC Glucose 78 65 - 199 [facility]dL [facility] Comment: Supplemental ranges: <140 mg/dL before meals <180 mg/dL all other times of the day Specimen Anatomical Collection Method Collection Time Receive d Time (Source) Location / / Volume Laterality Blood specimen 08/08/2017 4:42 PM 018 4:42 (specimen) EST PM EST Yonathan Smith MD POINT OF CARE TEST ORDERABLE S Performing Organization Address City/State/[place] [address] (ABNORMAL) POCT Glucose (08/08/2017 4:01 PM EST) athologist Signature POC Glucose 58 (L) 65 - 199 [facility] mg/dL [facility] Comment: Supplemental ranges: <140 mg/dL before meals <180 mg/dL all other times of the day Specimen Anatomical Collection Method Collection Time Receive d Time (Source) Location / / Volume Laterality Blood specimen 08/08/2017 4:01 PM 018 4:01 (specimen) EST PM EST Yonathan Smith MD POINT OF CARE TEST ORDERABLE S Performing Organization Address City/State/[place] [address] POCT Glucose (08/08/2017 11:51 AM EST) athologist Signature POC Glucose 90 65 - 199 [facility] mg/dL [facility] Comment: Supplemental ranges: <140 mg/dL before meals <180 mg/dL all other times of the day Specimen Anatomical Collection Method Collection Time Receive d Time (Source) Location / / Volume Laterality Blood specimen 08/08/2017 11:51 8 (specimen) AM EST 11:51 AM EST Yonathan Smith MD POINT OF CARE TEST ORDERABLE S Performing Organization Address City/State/[place] [address] (ABNORMAL) APTT (08/08/2017 10:27 AM EST) athologist Signature PTT 64 (H) 25 - 35 sec [facility] Comment: The recommended therapeutic range for fu ll dose, unfractionated heparin at [facility] is 80 ? 114 seconds. The use [...] Address City/State/ZIP Code Phon e Number [address] POCT Glucose (08/08/2017 8:02 AM EST) athologist Signature POC Glucose 178 65 - 199 [facility] mg/dL [facility] Comment: Supplemental ranges: <140 mg/dL before meals <180 mg/dL all other times of the day Specimen Anatomical Collection Method Collection Time Receive d Time (Source) Location / / Volume Laterality Blood specimen 08/08/2017 8:02 AM 018 8:02 (specimen) EST AM EST Yonathan Smith MD POINT OF CARE TEST ORDERABLE S Performing Organization Address City/[facility]/[place] [address] (ABNORMAL) APTT (08/08/2017 4:51 AM EST) athologist Signature PTT >160 25 - 35 [facility] (Critical) sec [facility] LABORATORY Comment: Called by: HOWARD, Read back by: Melba Jaramillo, Date/Time:08/08/17 05:43. The recommended therapeutic range for fu ll dose, unfractionated heparin at [facility] is 80 ? 114 seconds. The use [...] Address City/State/[place] [address] (ABNORMAL) Differential, Automated (08/08/2017 4:51 AM EST) [facility] gist Method Time Signature Neutrophils % 77.9 % [facility] LABORATORY Neutr Abs (ANC) 8.17 (H) 1.70 - [facility] 6.10 [facility] x10(3)/[facility] LABORATORY Lymphocytes % 10.3 % [facility] LABORATORY Lymphocytes Abs 1.1 0.9 - 3.2 [facility] x10(3)/[facility] LABORATORY Monocytes % 7.0 % [facility] LABORATORY Monocyte Abs 0.7 0.3 - 0.9 [facility] x10(3)/[facility] LABORATORY Eosinophils % 3.6 % [facility] LABORATORY Eosinophils Abs 0.4 0.0 - 0.4 [facility] x10(3)/[facility] LABORATORY Basophils % 0.5 % [facility] LABORATORY Basophils Abs 0.0 0.0 - 0.1 [facility] x10(3)/[facility] LABORATORY Immature Gran % [...] Organization Address City/State/[place] [address] (ABNORMAL) Hemogram (08/08/2017 4:51 AM EST) Analysis Performed At Patho logist Time Signature WBC 10.5 (H) 4.0 - 9.5 [facility] x[facility] LABORATORY RBC 3.27 (L) 4.58 - [facility] 5.54 [facility] x10(6)/[facility] LABORATORY Hemoglobin 9.3 (L) 13.7 - [facility] 16.5 gm/dL [facility] Hematocrit 30.3 (L) 40.5 - [facility] 48.5 % [facility] MCV 92.7 82.9 - [facility] 93.1 [facility] LABORATORY MCH 28.4 27.5 - [facility] 32.1 pg [facility] LABORATORY MCHC 30.7 (L) 32.0 - [facility] 35.7 gm/dL [facility] LAB[facility] Platelets 252 145 - 357 [facility] x10(3)/[facility] LABORATORY RDWSD 54.6 (H) 36.0 - [facility] 45.0 [facility] LABORATORY RDWCV 16.2 (H) 11.4 - [facility] 13.8 % [facility] LABORAT[facility] MPV 9.1 7.6 - 12.9 [facility] LABORATORY nRBC % Auto 0.0 % [facility] LABORATORY nRBC Abs Auto 0.000 0.000 - [facility] 0.000 [facility] x10(3)/[facility] LABORATORY Specimen Anatomical Collection Method Collection Time Receive d Time (Source) Location / / Volume Laterality Blood specimen 08/08/2017 4:51 AM 018 5:14 (specimen) EST AM EST Resulting Agency Comment Spec In Lab Yonathan Smith MD HEMATOLOGY ORDERABLES Performing Organization Address City/State/[place] [address] (ABNORMAL) Prothrombin Time (08/08/2017 [...] Address City/State/[place] [address] (ABNORMAL) Basic Metabolic Panel (non-fasting) (08/08/2017 4:51 AM EST) athologist Signature Glucose Lvl 229 (H) 65 - 199 [facility] mg/dL [facility] Comment: [...] Calcium 7.9 (L) 8.5 - 10.5 mg/dL [facility] LABORATORY Estimated GFR 44 (L) >=60 [facility] LABORATORY Comment: The reported eGFR should be multiplied b y 1.2 for patients. The MDRD is not an appropriate measure o f renal function for patients with body mass extremes or in patients with acute kidney failure. http://GetShopApp/DHnkdep http://GetShopApp/DHMCnkf Specimen Anatomical Collection Method Collection Time Receive d Time (Source) Location / / Volume Laterality Blood specimen 08/08/2017 4:51 AM 018 5:14 (specimen) EST AM EST Resulting Agency Comment Spec In Lab Yonathan Smith MD CHEMISTRY ORDERABLES Performing Organization Address City/[facility]/ZIP Code Phon e Number [address] POCT Glucose (08/08/2017 4:20 AM EST) athologist Signature POC Glucose 193 65 - 199 [facility] mg/dL [facility] Comment: Supplemental ranges: <140 mg/dL before meals <180 mg/dL all other times of the day Specimen Anatomical Collection Method Collection Time Receive d Time (Source) Location / / Volume Laterality Blood specimen 08/08/2017 4:20 AM 018 4:20 (specimen) EST AM EST Yonathan Smith MD POINT OF CARE TEST ORDERABLE S Performing Organization Address City/State/ZIP Code Phon e Number [address] POCT Glucose (08/07/2017 11:11 PM EST) athologist Signature POC Glucose 124 65 - 199 [facility] mg/dL [facility] Comment: Supplemental ranges: <140 mg/dL before meals <180 mg/dL all other times of the day Specimen Anatomical Collection Method Collection Time Receive d Time (Source) Location / / Volume Laterality Blood specimen 08/07/2017 11:11 8 (specimen) PM EST 11:11 PM EST Yonathan Smith MD POINT OF CARE TEST ORDERABLE S Performing Organization Address City/[facility]/[place] [address] (ABNORMAL) APTT (08/07/2017 10:18 PM EST) athologist Signature PTT 114 (H) 25 - 35 sec [facility] LAB[facility]ORY Comment: The recommended therapeutic range for fu ll dose, unfractionated heparin at [facility] is 80 ? 114 seconds. The use [...] City/[facility]/[place] [address] POCT Glucose (08/07/2017 8:10 PM EST) athologist Signature POC Glucose 140 65 - 199 [facility] mg/dL [facility] Comment: Supplemental ranges: <140 mg/dL before meals <180 mg/dL all other times of the day Specimen Anatomical Collection Method Collection Time Receive d Time (Source) Location / / Volume Laterality Blood specimen 08/07/2017 8:10 PM 018 8:10 (specimen) EST PM EST Yonathan Smith MD POINT OF CARE TEST ORDERABLE S Performing Organization Address City/[facility]/[place] [address] POCT Glucose (08/07/2017 5:27 PM EST) athologist Signature POC Glucose 187 65 - 199 [facility] mg/dL [facility] Comment: Supplemental ranges: <140 mg/dL before meals <180 mg/dL all other times of the day Specimen Anatomical Collection Method Collection Time Receive d Time (Source) Location / / Volume Laterality Blood specimen 08/07/2017 5:27 PM 018 5:27 (specimen) EST PM EST Yonathan Smith MD POINT OF CARE TEST ORDERABLE S Performing Organization Address City/[facility]/[place] [address] POCT Glucose (08/07/2017 3:29 PM EST) athologist Signature POC Glucose 86 65 - 199 [facility] Comment: Supplemental ranges: <140 mg/dL before meals <180 mg/dL all other times of the day Specimen Anatomical Collection Method Collection Time Receive d Time (Source) Location / / Volume Laterality Blood specimen 08/07/2017 3:29 PM 018 3:29 (specimen) EST PM EST Yonathan Smith MD POINT OF CARE TEST ORDERABLE S Performing Organization Address [facility]/ZIP [facility] [place] [address] (ABNORMAL) APTT (08/07/2017 2:50 PM EST) athologist Signature PTT 60 (H) 25 - 35 sec [facility] Comment: The recommended therapeutic range for fu ll dose, unfractionated heparin at [facility] is 80 ? 114 seconds. The use [...] ORDERABLES Performing Organization Address City/[facility]/ZIP [facility] Phon e Number [address] (ABNORMAL) POCT Glucose (08/07/2017 2:23 PM EST) athologist Signature POC Glucose 55 (L) 65 - 199 [facility] mg/dL [facility] Comment: Supplemental ranges: <140 mg/dL before meals <180 mg/dL all other times of the day Specimen Anatomical Collection Method Collection Time Receive d Time (Source) Location / / Volume Laterality Blood specimen 08/07/2017 2:23 PM 018 2:23 (specimen) EST PM EST Yonathan Smith MD POINT OF CARE TEST ORDERABLE S Performing Organization Address City/State/ZIP Code Phon e Number [address] POCT Glucose (08/07/2017 12:08 PM EST) P athologist Signature POC Glucose 77 65 - 199 [facility] mg/dL [facility] Comment: Supplemental ranges: <140 mg/dL before meals <180 mg/dL all other times of the day Specimen Anatomical Collection Method Collection Time Receive d Time (Source) Location / / Volume Laterality Blood specimen 08/07/2017 12:08 8 (specimen) PM EST 12:08 PM EST Yonathan Smith MD POINT OF CARE TEST ORDERABLE S Performing Organization Address City/State/ZIP Code Phon e Number [address] (ABNORMAL) Differential, Automated (08/07/2017 7:30 AM EST) Patholo gist Method Time Signature Neutrophils % 73.8 % [facility] LABORATORY Neutr Abs (ANC) 7.17 (H) 1.70 - [facility] 6.10 [facility] x10(3)/[facility] LABORATORY Lymphocytes % 12.2 % [facility] LABORATORY Lymphocytes Abs 1.2 0.9 - 3.2 [facility] x10(3)/[facility] LABORATORY Monocytes % 9.0 % [facility] LABORATORY Monocyte Abs 0.9 0.3 - 0.9 [facility] x10(3)/[facility] LABORATORY Eosinophils % 3.9 % [facility] LABORATORY Eosinophils Abs 0.4 0.0 - 0.4 [facility] x10(3)/[facility] LABORATORY Basophils % 0.6 % [facility] LABORATORY Basophils Abs 0.1 0.0 - 0.1 [facility] x10(3)/[facility] LABORATORY Immature Gran % 0.50 % [place] [...] Address City/State/[place] [address] (ABNORMAL) Hemogram (08/07/2017 7:30 AM EST) Analysis Performed At Patho logist Time Signature WBC 9.7 (H) 4.0 - 9.5 [facility] x10(3)/[facility] LABORATORY RBC 3.54 (L) 4.58 - [facility] 5.54 [facility] x10(6)/[facility] LABORATORY Hemoglobin 9.9 (L) 13.7 - [facility] 16.5 gm/dL [facility] Hematocrit 32.3 (L) 40.5 - [facility] 48.5 % [facility]AT[facility] MCV 91.2 82.9 - [facility] 93.1 [facility] LABORATORY MCH 28.0 27.5 - [facility] 32.1 pg [facility]AT[facility] MCHC 30.7 (L) 32.0 - [facility] 35.7 gm/dL [facility] Platelets 312 145 - 357 [facility] x10(3)/[facility] LABORATORY RDWSD 53.2 (H) 36.0 - [facility] 45.0 [facility] LABORATORY RDWCV 16.0 (H) 11.4 - [facility] 13.8 % [facility] LABORATORY MPV 8.9 7.6 - 12.9 [facility] LABORATORY nRBC % Auto 0.0 % [facility] LABORATORY nRBC Abs Auto 0.000 0.000 - [facility] 0.000 [facility] x10(3)/[facility] LABORATORY Specimen Anatomical Collection Method Collection Time Receive d Time (Source) Location / / Volume Laterality Blood specimen 08/07/2017 7:30 AM 018 7:45 (specimen) EST AM EST Resulting Agency Comment Spec In Lab Yonathan Smith MD HEMATOLOGY ORDERABLES Performing Organization Address City/State/[place] [address] (ABNORMAL) Basic Metabolic Panel (non-fasting) (08/07/2017 7:30 AM EST) P athologist Signature Glucose Lvl 80 65 - 199 [facility] mg/dL [facility] Comment: [...] [facility] LABORATORY Estimated GFR 59 (L) >=60 [facility] LABORATORY Comment: The reported eGFR should be multiplied b y 1.2 for patients. The MDRD is not an appropriate measure o f renal function for patients with body mass extremes or in patients with acute kidney failure. http://GetShopApp/DHnkdep http://GetShopApp/DHMCnkf Specimen Anatomical Collection Method Collection Time Receive d Time (Source) Location / / Volume Laterality Blood specimen 08/07/2017 7:30 AM 018 7:45 (specimen) EST AM EST Resulting Agency Comment Spec In Lab Yonathan Smith MD CHEMISTRY ORDERABLES Performing Organization Address City/[facility] Phon e Number [address] POCT Glucose (08/07/2017 7:27 AM EST) athologist Signature POC Glucose 81 65 - 199 [facility] mg/dL [facility] Comment: Supplemental ranges: <140 mg/dL before meals <180 mg/dL all other times of the day Specimen Anatomical Collection Method Collection Time Receive d Time (Source) Location / / Volume Laterality Blood specimen 08/07/2017 7:27 AM 018 7:27 (specimen) EST AM EST Yonathan Smith MD POINT OF CARE TEST ORDERABLE S Performing Organization Address [facility] Phon e Number [address] APTT (08/07/2017 7:04 AM EST) athologist Signature PTT 34 25 - 35 sec [facility] LAB[facility]ORY Comment: The recommended therapeutic range for fu ll dose, unfractionated heparin at [facility] is 80 ? 114 seconds. The use [...] mSith MD HEMATOLOGY ORDERABLES Performing Organization Address City/[facility]/[place] [address] (ABNORMAL) Prothrombin Time (08/07/2017 [...] Organization Address City/State/[place] [address] POCT Glucose (08/07/2017 4:03 AM EST) athologist Signature POC Glucose 93 65 - 199 [facility]/dL [facility] Comment: Supplemental ranges: <140 mg/dL before meals <180 mg/dL all other times of the day Specimen Anatomical Collection Method Collection Time Receive d Time (Source) Location / / Volume Laterality Blood specimen 08/07/2017 4:03 AM 018 4:03 (specimen) EST AM EST Yonathan Smith MD POINT OF CARE TEST ORDERABLE S Performing Organization Address City/State/[place] [address] POCT Glucose (08/07/2017 12:04 AM EST) athologist Signature POC Glucose 107 65 - 199 [facility]/dL [facility] Comment: Supplemental ranges: <140 mg/dL before meals <180 mg/dL all other times of the day Specimen Anatomical Collection Method Collection Time Receive d Time (Source) Location / / Volume Laterality Blood specimen 08/07/2017 12:04 8 (specimen) AM EST 12:04 AM EST Yonathan Smith MD POINT OF CARE TEST ORDERABLE S Performing Organization Address City/State/ZIP Code Phon e Number [address] POCT Glucose (08/06/2017 7:56 PM EST) P athologist Signature POC Glucose 178 65 - 199 [facility] mg/dL [facility] Comment: Supplemental ranges: <140 mg/dL before meals <180 mg/dL all other times of the day Specimen Anatomical Collection Method Collection Time Receive d Time (Source) Location / / Volume Laterality Blood specimen 08/06/2017 7:56 PM 018 7:56 (specimen) EST PM EST Yonathan Smith MD POINT OF CARE TEST ORDERABLE S Performing Organization Address City/State/ZIP Code Phon e Number [address] TcPO2 (08/06/2017 2:32 PM EST) Component Value Ref Test Analysis Performed At Patholo gist Range Method Time Signature VB Text Department: Vascular Surgery Lab VASCUBASE Report Patient: [id number] (GREGORY HOANG) CPT: 6206134 ICD10: I99.8 Referring Physician: YONATHAN SMITH ?? [...] RN) 0631 (G iven - Provider: Mira Truogn, RN) 175 mcg, Oral, EVERY MORNING, First [...] Chiquis Mcgrath RN)2022 (Hold - Provider: Mira Turong, RN - Reason: See comment - Comment: [...] 0454 (Given - P rovider: Henrique Marks RN)0879 (Given - Provider: Chiquis Mcgrath RN)1135 (Given [...] in this encounter Care Teams Medical Staff Manager Relationship Specialty Start Date End Date Lovely Vicente MD PCP - General 04/16/[address] [place] [address] [address] [place] [address] documented as of this encounter
--- OUTSIDE RECORDS SUMMARY | 2022-04-17 08:24 | XMS_ITS | Encounter Summary ---
:1945 Author Organization [facility] [place] [address] Care Team Providers Name Role Phone Lovely Vicente MD Primary Care Provider Reason for Visit Auth/Cert Specialty Diagnoses / Procedures Referred By Contact Refer red To Contact Diagnoses Critical lower limb ischemia CELLULITIS RT FOOT Procedures EMERGENCY Referral ID Status Reason Start Date Expiration Date Visits Requ ested Visits Authorized [id number] 1 1 Encounter Details Date Type Department Care Team Description 08/06/2017 Hospital [facility] [place] [address] Social History Tobacco Use Types Packs/Day [...] Zulma Dolan MD [facility] [address] [place], [place] [address] (Wo rk) 05/28/2022 Laboratory Appointment Lab 05/28/2022 Office Visit Cardiology Zulma Dolan MD [facility] [place] [address] Liz Poole PA [facility] [place] [address] 06/10/2022 Office Visit Dermatology Laura Scherer MD [facility] [address] [place], [place] [address] (Wo rk) documented as of this encounter Visit Diagnoses Not on filedocumented in this encounter Care Teams Generator Assembler Relationship Specialty Start Date End Date Lovely Vicente MD PCP - General 04/16/[address] [place] [address] documented as of this encounter
--- OUTSIDE RECORDS SUMMARY | 2022-04-17 08:24 | XMS_ITS | Encounter Summary ---
:1945 [place] [address] Care Team Providers Name Role Phone Lovely Vicente MD Primary Care Provider Reason for Visit Auth/Cert Specialty Diagnoses / Procedures Referred By Contact Refer red To Contact Diagnoses Critical lower limb ischemia CELLULITIS RT FOOT Procedures EMERGENCY Referral ID Status Reason Start Date Expiration Date Visits Requ ested Visits Authorized [id number] 1 1 Encounter Details Date Type Department Care Team Description 08/09/2017 Anesthesia Event Main Operating Room Daniele Lizama MD [facility] [place] [address] [facility] Rob Jones MD [facility] [place] [address] [place] [address] Anesthesia Record Procedure Summary Procedure Name [...] Knowles, Dory arm), right; VAMSI Rios, RN sifq-nri-rawjsb catheter system; 20 gauge; 08/16/17; 1047 PIV 07/29/17; 1413; median 07/29/17 1413 by 08/16/17 1047 by cubital vein (antecubital Magdalene Hickey Williams, Dory fossa), left; VAMSI Wyatt, RN cdyu-frt-vayoxr catheter system; 20 gauge; 08/16/17; 1047 PIV 08/06/17; 1742; cephalic 08/06/17 1742 by 0920 by vein (lateral side of Taylor Laureano Danah y, Caitlyn C, arm), right; VAMSI BONNER jliv-gdo-yhflma catheter system; 22 gauge, 1 in length; Eliseo LAUREANO RN VAS; distraction, intradermal injection, tolerated well, appears comfortable; 0; 08/16/17; 0920 Wound 08/07/17; 1335; knee; 08/07/17 1335 by 08/16/17 1047 by laceration; wound occured Barbara Albert iams, Dory SLOPE RUNNER; 08/16/17; 1047 VAMSI Alonzo, RN PIV 08/07/17; 1734; cephalic 08/07/17 1734 by 1047 by vein (lateral side of Kendrick, Carlos W, Willia ms, Dory arm), left; MARCIE Wyatt RN vocy-ekn-reityv catheter system; 22 gauge; distraction, intradermal injection, [...] Stop Room / Location 08/09/17 0802 0901 [facility] OR 14 / [facility] MAIN OR Procedure Diagnosis Surgeon Responsible Provider AMPUTATION, 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 Nerve [...] [facility] ENDOSCOPY ??? PRO ENDOSCOPY W/VIDEO-ASST VEIN HARVEST, CABG Right 07/07/2017 ENDOSCOPIC HARVEST VEIN(S) FOR CABG (WRVU 0.31) performed by Yuan Retana MD at [facility] MAIN OR ??? PRO THYROIDECTOMY 03/28/2013 THYROIDECTOMY, TOTAL OR COMPLETE performed by Manny Mcknight MD at [facility] MAIN OR Social History Substance [...] adequate IV access. Brody Santillan MD PGY-2, Alcoholic Counselor Pager #[phone] Anesthesiology Staff (Dewhirst): Pre-op summary note as [...] Dolan MD [facility] [address] [place], [place] [address] (Wo rk) 05/28/2022 Laboratory Appointment Lab 05/28/2022 Office Visit Cardiology uZlma Dolan MD [facility] [place] [address] Liz Poole PA [facility] [place] [address] 06/10/2022 Office Visit Dermatology Laura Scherer MD [facility] [address] [place]LOG[place], [place] [address] (Wo rk) documented as [...] Length: 10 cm Gauge: 21 Needle Type: C-tfxsc-tcydy Medication injection made in crementally with aspirations. [...] Procedure) documented in this encounter Care Teams Marketing Business Analyst Relationship Specialty Start Date End Date Lovely Vicente MD PCP - General 04/16/15 [facility] [address] [place] [address] documented as of this encounter
--- OUTSIDE RECORDS SUMMARY | 2022-04-17 08:24 | XMS_ITS | Encounter Summary ---
:1945 Author Organization [facility] [address] Care Team Providers Name Role Phone oLvely Vicente MD Primary Care Provider Reason for Visit Auth/Cert Specialty Diagnoses / Procedures Referred By Contact Refer red To Contact Diagnoses Critical lower limb ischemia CELLULITIS RT FOOT Procedures EMERGENCY Referral ID Status Reason Start Date Expiration Date Visits Requ ested Visits Authorized [id number] 1 1 Encounter Details Date Type Department Care Team Description 08/06/2017 Laboratory Appointment Lab at [facility] Ischemia of foot [facility] [place] [phone] Social History Tobacco Use Types Packs/Day [...] [facility] er [address] [place] [address] (Wo rk) 05/28/2022 Laboratory Appointment Lab 05/28/2022 Office Visit Cardiology Zulma Dolan MD [facility] [place] [address] Liz Poole PA [facility] [place] [address] 06/10/2022 Office Visit Dermatology Laura Scherer MD [facility] ER DR [address] [facility] [place] [place] [address] (Wo rk) documented as of [...] Signature Prealbumin 19 (L) 20 - 40 [facility] mg/dL [facility] Comment: Prealbumin levels are generally [...] Organization Address City/State/[place] [address] (ABNORMAL) Basic Metabolic Panel (non-fasting) (08/06/2017 12:32 PM EST) P athologist Signature Glucose Lvl 92 65 - 199 [facility] mg/dL [facility] Comment: Diabetes: >=200 mg/dL plus symp toms BUN 29 (H) 10 - 20 mg/dL [facility] Creatinine 1.33 0.80 - 1.50 mg/dL [facility] [...] or in patients with acute kidney failure. [email or web address] [email or web address] Specimen Anatomical Collection Method Collection Time Receive d Time (Source) Location / / Volume Laterality Blood specimen 08/06/2017 12:32 8 1:15 (specimen) PM EST PM EST Resulting Agency Comment Spec In Lab Arik Clement MD CHEMISTRY ORDERABLES Performing Organization Address City/State/[place] [address] (ABNORMAL) Hemogram (08/06/2017 12:32 PM EST) Analysis Performed At Patho logist Time Signature WBC 11.8 (H) 4.0 - 9.5 [facility] x10(3)/[place] LABORATORY RBC 3.49 (L) 4.58 - [facility] 5.54 [facility] x10(6)/[facility] LABORATORY Hemoglobin 9.9 (L) 13.7 - [facility] 16.5 gm/dL [facility] Hematocrit 32.0 (L) 40.5 - [facility] 48.5 % [facility] MCV 91.7 82.9 - [facility] 93.1 [facility] LABORATORY MCH 28.4 27.5 - [place] 32.[address] [facility] MCHC 30.9 (L) 32.0 - [place] 35.7 gm/dL [facility] Platelets 326 145 - 357 [facility] x10(3)/[place] LABORATORY RDWSD 53.4 (H) 36.0 - [place] 45.0 [facility] LABORATORY RDWCV 16.0 (H) 11.4 - [place] 13.8 % [facility] LABOR[facility]ORY MPV 9.1 7.6 - 12.9 [facility] LABORATORY nRBC % Auto 0.0 % [facility] LAB[facility] nRBC Abs Auto 0.000 0.000 - [place] 0.000 [facility] x10(3)/[facility] LABORATORY Specimen Anatomical Collection Method Collection Time Receive d Time (Source) Location / / Volume Laterality Blood specimen 08/06/2017 12:32 8 1:15 (specimen) PM EST PM EST Resulting Agency Comment Spec In Lab Arik Clement MD HEMATOLOGY ORDERABLES Performing Organization Address City/State/ZIP Code Phon e Number [place] [phone] documented in this encounter Visit Diagnoses Diagnosis Ischemia of foot Unspecified circulatory system disorder documented in this encounter Care Teams Flaker Operator Relationship Specialty Start Date End Date Lovely Vicente MD PCP - General 04/16/[address] [place] [address] documented as of this encounter
--- OUTSIDE RECORDS SUMMARY | 2022-04-17 08:24 | XMS_ITS | Encounter Summary ---
:1945 Author Organization [facility] [place] [address] Care Team Providers Name Role Phone Lovely Vicente MD Primary Care Provider Reason for Visit Auth/Cert Specialty Diagnoses / Procedures Referred By Contact Refer red To Contact Diagnoses Critical lower limb ischemia CELLULITIS RT FOOT Procedures EMERGENCY Referral ID Status Reason Start Date Expiration Date Visits Requ ested Visits Authorized [id number] 1 1 Encounter Details Date Type Department Care Team Description 08/09/2017 Surgery Main Operating Room Yonathan Smith AM PUTATION, Mary Hitchcock MD TRANSMETATARSAL ([facility] 12.71) [facility] DR Siddiqui [place] [address] [place] [address] [phone] Social History Tobacco Use Types Packs/Day Years [...] 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 0.94 ??Rapides-Biphasic ? Posterior Tibial (Ankle) Artery ??154 ? 1.10 ??Rapides-Biphasic ? Fourth Toe ? 67 ?0.48 ?? [...] the foot. Discharge Conditions/Prognosis: Good Discharge to: [facility] Rehab Discharge Medications: Your Medications New [...] For any problems or questions please call [phone] ZELDA Smith, batch freezer operator Nurse Clinician For issues on weeknights after 5pm and weekends please call [phone] and ask for the Vascular Fellow cessation systems outreach specialist. General Instructions None Future Appointments and Orders Future Appointments Provider Department Dept Phone 08/26/2017 4:00 PM Aurelia Rviera PA Vascular Surgery at [place] [phone] 09/07/2017 3:00 PM LAB, THREE L Lab 3L [facility] [phone] 09/07/2017 4:00 PM Luz Prescott MD Endocrinology at [place] [phone] 09/09/2017 8:00 AM Barbra Soares APRN Pain Management at [place] [phone] Please bring a list of your current [...] For any problems or questions please call [phone] ZELDA Smith, batch freezer operator Nurse Clinician For issues on weeknights after 5pm and weekends please call [phone] and ask for the Vascular Fellow cessation systems outreach specialist. documented in this encounter Medications at [...] Discharge Note Patient Destination: [facility] ([facility]) [address] [address] Transportation: with (at bedside) Time of Discharge: by 12 noon Level of Care: swing Patient Aware: yes Family Notified: yes Md to call report to: Yissel Quintero ELECTRIC METER REPAIRER APPRENTICE already called RN to call report to: [phone] Shirin Wolf Office of Care Management Pager [phone] Shirin Wolf RN - 08/16/2017 10:50 AM EST [facility] has offered pt swing bed. Pt and accept bed. will transport via car. ELECTRIC METER REPAIRER APPRENTICE Yissel Quintero aware; d/c paperwork will be completed by 12 noon. [facility] requests pt arrival by 1400 today; ELECTRIC METER REPAIRER APPRENTICE, RN, and family aware. ELECTRIC METER REPAIRER APPRENTICE called [facility] and was told that they prefer pt to arrive with wound vac dressing applied but clamped. ELECTRIC METER REPAIRER APPRENTICE applied new wound vac dressing. RN has [facility] number to call report. PASSR completed; ELECTRIC METER REPAIRER APPRENTICE paged to request provider signature in highlighted space. Indigo from [facility] notified via email that home wound vac now cancelled; [facility] has picked up from room and order cancelled. Packet started and provided to community services coordinator. Medicare important message explained to patient, patient signed. Copy provided to patient and signature page to OCM for inclusion in pt EMR. L Radha Powers Yoselin - 08/16/2017 10:34 AM EST Office of Care Management/Electronics Design Engineer Patient Name: Gregory Hoang : 1945 Patient has been offered a swing bed at [facility]. The patient will be transported by private transportation. No MD to MD report necessary Please call Nursing Report to [phone], ask for delicatessen clerk. Info to accompany patient: Narcotic Prescriptions Copies of Medication Administration Records and IV sheets for past 10 days. Plan: Electronics Design Engineer will be available to the patient and Netbackup Engineer-RN and/or Retort Operator for further assistance. Patient will be discharged to: [id number] Radha Powers, Electronics Design Engineer Mira Truong, VAMSI - 08/15/2017 10:05 PM EST [address] Flores to ask if he wanted to hold metoprolol dose. BP 95/58. OK to hold this dose Courtney Brito - 08/15/2017 3:26 PM EST Office of Care Management(OCM)/Electronics Design Engineer(RS)/ D/C Planning re : Patient is medically ready for d/c today. RS has been in contact with [facility] to see if they could offer a bed. [facility] is still reviewing the case and need their MD to review chart prior to accepting or declining. OCM team needs to check in with [facility] tomorrow to check on status. 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 Vac in place. [...] patient's referral to: [facility] PHONE: [phone] FAX: [phone] CM spoke with RS who said that [...] rehab. Await recommendations from PT. Covering pager #[phone]. 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 Barytes Grinder Kaitlin Saha, RN Pager #[phone] Payam Rosales - 08/13/2017 2:37 PM EST Instructional Developer Encounter Note Patient Name: Gregory Hoang : [id number] MR#: [id number] Admit Date: 08/06/2017 1:41 PM Hospital Day 7 days Narrative: Visited to introduce and assess acceptance of Instructional Developer services. Pt was awake, alert, oriented and in chair and family was there. Assessment:Patient coping positively with stresses of illness/hospitalization at this time. Pt says that he is hoping to get better and his family was there. Pt says that he has family care and supportand taking one day at time. Intervention and Outcome: Provided emotional support and encouraging presence. 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 A letter describing our affiliations was reviewed with them and theywere educated about their right to choose where referrals are placed. Patient requests referral to [facility]. PHONE: [phone] FAX: [phone]. And Home NPWT (Negative Pressure Wound Therapy) aka wound vac device made available to pt. Serial # confirmed. Reviewed [facility] Proof of Delivery/Assignment of Benefits Statement(POD/AOB) Form w patient or authorized agent signing on behalf of patient. Copy of POD/AOB provided to pt and other copy faxed to [employer] @ fax# [phone] Expected date of discharge: 08/12/2017. 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 Heparin gtt continues to run. Pt [...] of : 1945 AGE 72 y.o. 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 Unsuccessful draw attempt, another tank stave assembler will come [facility] to collect blood for PTT test. 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 Vascular resident cessation systems outreach specialist and will forward result to the team prior to rounds. 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 Completion RLE angiogram 6. L FIELD CROPS HARVEST MACHINE OPERATOR angiogram 7. 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 - L FIELD CROPS HARVEST MACHINE OPERATOR angriogram demonstrated: High femoral bifurcation over the proximal half of the femoral head. L FIELD CROPS HARVEST MACHINE OPERATOR access in the distal L FIELD CROPS HARVEST MACHINE OPERATOR. - Closure device: Mynx Technical [...] for a 45cm 5F Destination. V18 and [place] and QuickCross catheters were used to select [...] A stationed picture of the L FIELD CROPS HARVEST MACHINE OPERATOR was performed as the patient was noted to have a very high bifurcation. Access appeared in the distal R FIELD CROPS HARVEST MACHINE OPERATOR. Closure and sheath removal was [...] PM EST 1440 report called to 5 vernalis nurse Tessa RN documented in this encounter [...] with pt and pt's spouse. Discharge to [facility]. Goal: Individualization & Mutuality Outcome: Outcome [...] sit/sit to supine -- Bed Mobility Goal, [place] Level independent -- Bed Mobility Goal, Date [...] days -- Transfer Training Goal, Activity Type oqw-ov-sclqr/dweax-iy-qfe -- Transfer Train Goal, [place] Level conditional independence -- Transfer Train Goal, [...] call cabello within reach, Hourly rounding by RN/CAKE INSPECTOR. Bed alarm / Chair alarm. Patient-specific [...] Smith MD - 08/15/2017 6:28 PM EST [facility] Operative Note Patient Name: Gregory Hoang : [id number] MR#: [id number] Case Date: 08/09/2017 Surgeon: Surgeon(s) and Role: [...] 5. Completion RLE angiogram 6. L FIELD CROPS HARVEST MACHINE OPERATOR angiogram 7. Mynx closure Precautions/Restrictions: [...] other (see comments) (or swing bed) Pager: [phone] BASSAM ELIAS, PT 08/14/2017 Inpatient Physical Therapy [...] to Achieve by discharge Gait Training Goal, [place] Level conditional independence;set up required Gait Training [...] these facilities over the weekend except for [facility]. CM spoke with [facility] CM Drea Sandhu, VAMSI who said that they do not anticipate any beds over the weekend. Reviewed with patient/ that they need to be aware that patient will need to take the first bed offered at the facilities that they make referrals to. Their choices are: 1- [facility] PHONE: [phone] FAX: [phone] 2- [facility] ([facility]) [address] [place] [address] 3- [facility]) [address] [place] [address] I have discussed Medicare/Private Insurance [...] RS/CM on Wednesday to follow-up. Covering pager #[phone] for today. Plan of Care - Henrique [...] additional findings of pseudoaneurysm on R FIELD CROPS HARVEST MACHINE OPERATOR and bilateral anterior tibial artery [...] an outpatient once discharged. Have patient call [phone] to set up an appointment. Follow-up: Dermatology will sign-off for now. Please do not hesitate to contact us if you have any questions orconcerns. Impression and Recommendations discussed with primary team on 08/13/2017. Karo Henderson MD Resident in Dermatology Section of Dermatology, Department of Surgery [facility] Pager [phone] Patient seen and evaluated with staff Print Machine Operator: Halima Cordero MD Section of Dermatology [facility] Level of Resident Supervision: Direct Supervision [...] Outcome: Ongoing (Interventions Implemented as Appropriate) 08/12/17 7186 Coping/Psychosocial Plan Of Care Reviewed With patient;spouse [...] 5. Completion RLE angiogram 6. L FIELD CROPS HARVEST MACHINE OPERATOR angiogram 7. Mynx closure Active [...] home with home health ([facility] PT[facility]OT) Pager: [phone] YASIR TELLO OT 08/12/2017 Occupational Therapy Rehabilitation [...] 5. Completion RLE angiogram 6. L FIELD CROPS HARVEST MACHINE OPERATOR angiogram 7. Mynx closure Past [...] with 24/7 assistance and maximal services) Pager: [phone] NICHOLAS MORA, PT 08/12/2017 Physical Therapy Rehabilitation [...] sit/sit to supine -- Bed Mobility Goal, [place] Level independent -- Bed Mobility Goal, Outcome Achieved -- goal ongoing Goal: Gait Training Goal Stand Alone Therapy Goal Outcome: Ongoing (Interventions Implemented as Appropriate) 08/11/17 1310 08/12/17 1510 Gait Training Goal Gait Training Goal, Date Established 08/11/17 -- Gait Training Goal, Time to Achieve 5 - 7 days -- Gait Training Goal, [place] Level conditional independence -- Gait Training Goal, [...] days -- Transfer Training Goal, Activity Type xop-om-gjemz/tsnpa-oo-gtp -- Transfer Train Goal, [place] Level conditional independence -- Transfer Training Goal, [...] Smith MD - 08/11/2017 2:52 PM EST [facility] Operative Note Patient Name: Gregory Hoang : [id number] MR#: [id number] Case Date: 08/11/2017 Surgeon: Surgeon(s) and Role: [...] toe syndrome (possibly from a right FIELD CROPS HARVEST MACHINE OPERATOR PSA which has since thrombosed), [...] 5. Completion RLE angiogram 6. L FIELD CROPS HARVEST MACHINE OPERATOR angiogram 7. Mynx closure He [...] Anticipated Discharge Disposition: inpatient rehabilitation facility Pager: [phone] LAWRENCE GONZALEZ, PT 08/11/2017 Physical Therapy Rehabilitation [...] to sit/sit to supine Bed Mobility Goal, [place] Level independent Goal: Gait Training Goal Stand Alone Therapy Goal Outcome: Ongoing (Interventions Implemented as Appropriate) 08/11/17 1310 Gait Training Goal Gait Training Goal, Date Established 08/11/17 Gait Training Goal, Time to Achieve 5 - 7 days Gait Training Goal, [place] Level conditional independence Gait Training Goal, Assist [...] 7 days Transfer Training Goal, Activity Type zhv-rs-sapod/ztwoh-se-ils Transfer Train Goal, [place] Level conditional independence Plan of David DelloAnnetta [...] call cabello within reach, Hourly rounding by RN/CAKE INSPECTOR. Bed alarm / Chair alarm. ? [...] 04/05/2013 Hospitalizations Within the Past 30 Days: [facility] 07/20/2017 Anticipated Length Of Stay (If known): Expected Length of Hospitalization: 5-7 days2-3 days Current Decision-Making Capacity: Alert and oriented x 4 Advance Care Planning: on file Kisha Hoang [facility] [phone] Current Coping/Education/Information Needs: pt and spouse state [...] Health/Prescription Coverage: Primary Insurance: MEDICARE Secondary Insurance: [employer] [place] Prescription Coverage: See above Preferred Pharmacy: [facility] Other: N/A Primary Care Provider: Lovely Vicente MD [phone] Patient/Caregiver Goals of Treatment: Patient plans to [...] of care planning. Kaitlin Saha RN Pager: [phone] Plan of Care - Melba Jaramillo RN [...] Overview Goal: Plan of Care Review 08/08/17 5384 Coping/Psychosocial Plan Of Care Reviewed With patient [...] within reach;BADL personal routines maintained -- -- Makr Fall Risk History of Falling -- -- [...] call cabello within reach, Hourly rounding by RN/CAKE INSPECTOR. Bed alarm / Chair alarm. Patient-specific fall prevention interventions for sensory deficits provided, if applicable: [X] Yes CPG GOAL OUTCOME EVALUATION: Goal: Fall Prevention-Safe Patient Handling Outcome: Ongoing (Interventions Implemented as Appropriate) 08/06/17 1700 08/06/17199908/07/17 5094 Positioning Body Position -- up in chair [...] at bedside and MD TEAM Carrying pager [phone] contacted (via Radio page) and notified of [...] Appointment Cardiology Zulma Dolan MD [facility] [place], [place] [address] (Wo rk) 05/28/2022 Laboratory Appointment Lab 05/28/2022 Office Visit Cardiology Zulma Dolan MD [place] [address] Liz Poole PA [facility] [place] [address] 06/10/2022 Office Visit Dermatology Laura Scherer MD [facility] [address] [place], [place] [address] (Wo rk) documented as [...] section. TYPE AND SCREEN Routine 08/09/2017 1:10 ([facility]/CGP/SHANDA) AM EST BASIC METABOLIC PANEL Routine 08/09/2017 [...] 160 65 - 199 [place] mg/dL [place] [...] City/State/[place] [address] [facility] [address] (ABNORMAL) Differential, Automated (08/16/2017 5:08 AM EST) [facility] Method Time Signature Neutrophils % 73.9 % [facility] Neutr Abs (ANC) 5.37 1.70 - [facility] 6.10 [facility] x10(3)/[facility] LABORATORY Lymphocytes % 10.1 % [facility] Lymphocytes Abs 0.7 (L) 0.9 - 3.2 [facility] x10(3)/[facility] LABORATORY Monocytes % 10.1 % [facility] Monocyte Abs 0.7 0.3 - 0.9 [facility] x10(3)/[facility] LABORATORY Eosinophils % 5.1 % [facility] Eosinophils Abs 0.4 0.0 - 0.4 [facility] x10(3)/[facility] LABORATORY Basophils % 0.4 % [facility] Basophils Abs 0.0 0.0 - 0.1 [facility] x10(3)/[facility] LABORATORY Immature Gran [...] - 0.04 x10(3)/[facility] LABORATORY Specimen Anatomical Collection Method Collection Time Receive d Time (Source) Location / / Volume Laterality Blood specimen 08/16/2017 5:08 AM 018 5:20 (specimen) EST AM EST Resulting Agency Comment Spec In Lab Yonathan Smith MD HEMATOLOGY ORDERABLES Performing Organization Address City/State/[place] [address] [facility] [address] (ABNORMAL) Hemogram (08/16/2017 5:08 AM EST) Analysis Performed At Patho logist Time Signature WBC 7.3 4.0 - 9.5 [facility] x10(3)/[facility] LABORATORY RBC 3.36 (L) 4.58 - [facility] 5.54 [facility] x10(6)/[facility] LABORATORY Hemoglobin 9.7 (L) 13.7 - [facility] 16.5 gm/dL [facility] LABORATORY Hematocrit 30.3 (L) 40.5 - [facility] 48.5 % [facility] LABORATORY MCV 90.2 82.9 - [facility] 93.[address] [facility] LABORATORY MCH 28.9 27.5 - [facility] 32.1 pg [facility] LABORATORY MCHC 32.0 32.0 - [facility] 35.7 gm/dL [facility] LABORATORY Platelets 282 145 - 357 [facility] x10(3)/[facility] LABORATORY RDWSD 53.9 (H) 36.0 - [facility] 45.[address] [facility] LABORATORY RDWCV 16.5 (H) 11.4 - [facility] 13.8 % [facility] LABORATORY MPV 9.0 7.6 - 12.9 [facility] LABORATORY nRBC % Auto 0.0 % [facility] LABORATORY nRBC Abs Auto 0.000 0.000 - [facility] 0.000 [facility] x10(3)/[facility] LABORATORY Specimen Anatomical Collection Method Collection Time Receive d Time (Source) Location / / Volume Laterality Blood specimen 08/16/2017 5:08 AM 018 5:20 (specimen) EST AM EST Resulting Agency Comment Spec In Lab Yonathan Smith MD HEMATOLOGY ORDERABLES Performing Organization Address City/State/[place] [address] (ABNORMAL) Basic Metabolic Panel (non-fasting) (08/16/2017 5:08 AM EST) P athologist Signature Glucose Lvl 141 65 - 199 [facility] mg/dL [facility] [...] or in patients with acute kidney failure. [email or web address] Calendar/DHnkdep http://Kids Calendar/DHMCnkf Specimen Anatomical Collection Method Collection Time Receive d Time (Source) Location / / Volume Laterality Blood specimen 08/16/2017 5:08 AM 018 5:20 (specimen) EST AM EST Resulting Agency Comment Spec In Lab Yonathan Smith MD CHEMISTRY ORDERABLES Performing Organization Address City/State/[place] [address] (ABNORMAL) Prothrombin Time (08/16/2017 [...] [place]/ZIP Code Phon e Number [address] POCT Glucose (08/16/2017 4:09 AM EST) athologist Signature POC Glucose 147 65 - 199 [facility] RYAN mg/dL [facility] [...] S Performing Organization Address City/[facility]/ZIP Code Phon e Number [address] POCT Glucose (08/15/2017 11:56 [...] S Performing Organization Address City/[facility]/ZIP Code Phon e Number [address] POCT Glucose (08/15/2017 8:05 PM EST) athologist Signature POC Glucose 136 65 - 199 [place] RYAN mg/dL [place] [...] Organization Address City/State/[place] [address] (ABNORMAL) POCT Glucose (08/15/2017 4:50 PM EST) athologist Signature POC Glucose 232 (H) 65 - 199 [place] mg/dL [place] [...] Organization Address City/State/[place] [address] POCT Glucose (08/15/2017 12:04 PM EST) athologist Signature POC Glucose 135 65 - 199 [place] mg/dL [place] [...] Organization Address City/State/[place] [address] POCT Glucose (08/15/2017 7:36 AM EST) athologist Signature POC Glucose 124 65 - 199 [place] mg/dL [place] [...] City/State/[place] [address] (ABNORMAL) Differential, Automated (08/15/2017 6:22 AM EST) [facility] Method Time Signature Neutrophils % 76.1 % [facility] LABORATORY Neutr Abs (ANC) 6.62 (H) 1.70 - [facility] 6.10 [facility] x10(3)/[facility] LABORATORY Lymphocytes % 9.3 % [facility] LABORATORY Lymphocytes Abs 0.8 (L) 0.9 - 3.2 [facility] x10(3)/[facility] LABORATORY Monocytes % 9.4 % [facility] LABORATORY Monocyte Abs 0.8 0.3 - 0.9 [facility] x10(3)/[facility] LABORATORY Eosinophils % 4.0 % [facility] LABORATORY Eosinophils Abs 0.4 0.0 - 0.4 [facility] x10(3)/[facility] LABORATORY Basophils % 0.6 % [facility] LABORATORY Basophils Abs 0.0 0.0 - 0.1 [facility] x10(3)/[facility] LABORATORY Immature Gran % 0.60 % [facility] [place]/ZIP Code Phon e Number [address] (ABNORMAL) Hemogram (08/15/2017 6:22 AM EST) Analysis Performed At Patho logist Time Signature WBC 8.7 4.0 - 9.5 [facility] x10(3)/[facility] LABORATORY RBC 3.21 (L) 4.58 - [place]AN 5.54 [facility] x10(6)/[facility] LABORATORY Hemoglobin 9.1 (L) 13.7 - [facility]/dL [facility] LABORATORY Hematocrit 29.0 (L) 40.5 - [facility] 48.5 % [facility] LABORATORY MCV 90.3 82.9 - [facility] [address] [facility] LABORATORY MCH 28.3 27.5 - [facility] RYAN 32.1 pg [facility] LABORATORY MCHC 31.4 (L) 32.0 - [facility] 35.7 gm/dL [facility] LABORATORY Platelets 254 145 - 357 [facility] x10(3)/[facility] LABORATORY RDWSD 53.9 (H) 36.0 - [facility] RYAN [address] [facility] LABORATORY RDWCV 16.3 (H) 11.4 - [facility] RYAN 13.8 % [facility] LABORATORY MPV 8.8 7.6 - 12.9 [facility] LABORATORY nRBC % Auto 0.0 % [facility] LABORATORY nRBC Abs Auto 0.000 0.000 - [facility] RYAN 0.000 [facility] x10(3)/[facility] LABORATORY Specimen Anatomical Collection Method Collection Time Receive d Time (Source) Location / / Volume Laterality Blood specimen 08/15/2017 6:22 AM 018 6:33 (specimen) EST AM EST Resulting Agency Comment Spec In Lab Yonathan Smith MD HEMATOLOGY ORDERABLES Performing Organization Address City/State/ZIP Code Phon e Number [facility] [place] [address] (ABNORMAL) Basic Metabolic Panel (non-fasting) (08/15/2017 6:22 AM EST) P athologist Signature Glucose Lvl 118 65 - 199 [facility] mg/dL [facility] [...] or in patients with acute kidney failure. [email or web address] Specimen Anatomical Collection Method Collection Time Receive d Time (Source) Location / / Volume Laterality Blood specimen 08/15/2017 6:22 AM 018 6:33 (specimen) EST AM EST Resulting Agency Comment Spec In Lab Yonathan Smith MD CHEMISTRY ORDERABLES Performing Organization Address City/State/ZIP Code Phon e Number [address] (ABNORMAL) Prothrombin Time (08/15/2017 [...] Organization Address City/State/ZIP Code Phon e Number [address] POCT Glucose (08/15/2017 4:33 AM EST) athologist Signature POC Glucose 164 65 - 199 [facility] mg/dL [facility] [...] Organization Address City/State/ZIP Code Phon e Number [address] POCT Glucose (08/15/2017 12:12 AM EST) athologist Signature POC Glucose 89 65 - 199 [facility] [...] Organization Address City/State/ZIP Code Phon e Number [address] (ABNORMAL) POCT Glucose (08/14/2017 [...] S Performing Organization Address City/[facility]/[place] [address] POCT Glucose (08/14/2017 5:11 PM EST) athologist Signature POC Glucose 174 65 - 199 [place] ZHAORYAN mg/dL [place] [...] Organization Address City/State/[place] [address] POCT Glucose (08/14/2017 12:10 PM EST) athologist Signature POC Glucose 141 65 - 199 [place] mg/dL [place] [...] Organization Address City/State/ZIP Code Phon e Number [address] POCT Glucose (08/14/2017 8:07 AM EST) P athologist Signature POC Glucose 158 65 - 199 [facility] mg/dL [facility] [...] Organization Address City/State/ZIP Code Phon e Number [address] (ABNORMAL) Differential, Automated (08/14/2017 4:52 AM EST) Patholo gist Method Time Signature Neutrophils % 78.6 % [facility] LABORATORY Neutr Abs (ANC) 7.70 (H) 1.70 - [facility] 6.10 [facility] x10(3)/[facility] LABORATORY Lymphocytes % 7.8 % [facility] LABORATORY Lymphocytes Abs 0.8 (L) 0.9 - 3.2 [facility] x10(3)/[facility] LABORATORY Monocytes % 8.8 % [facility] LABORATORY Monocyte Abs 0.9 0.3 - 0.9 [facility] x10(3)/[facility] LABORATORY Eosinophils % 4.0 % [facility] LABORATORY Eosinophils Abs 0.4 0.0 - 0.4 [facility] x10(3)/[facility] LABORATORY Basophils % 0.5 % [facility] LABORATORY Basophils Abs 0.0 0.0 - 0.1 [facility] x10(3)/[facility] LABORATORY Immature Gran % 0.30 [...] - 0.04 x10(3)/[facility] LABORATORY Specimen Anatomical Collection Method Collection Time Receive d Time (Source) Location / / Volume Laterality Blood specimen 08/14/2017 4:52 AM 018 5:08 (specimen) EST AM EST Resulting Agency Comment Spec In Lab Yonathan Smith MD HEMATOLOGY ORDERABLES Performing Organization Address City/State/[place] [address] (ABNORMAL) Hemogram (08/14/2017 4:52 AM EST) Analysis Performed At Patho logist Time Signature WBC 9.8 (H) 4.0 - 9.5 [facility] x10(3)/[facility] LABORATORY RBC 3.32 (L) 4.58 - [facility] 5.54 [facility] x10(6)/[facility] LABORATORY Hemoglobin 9.5 (L) 13.7 - [facility] 16.[facility] gm/dL [facility] LABORATORY Hematocrit 30.3 (L) 40.5 - [facility] 48.5 % [facility] LABORATORY MCV 91.3 82.9 - [facility] 93.[address] [facility] LABORATORY MCH 28.6 27.5 - [facility] 32.1 pg [facility] LABORATORY MCHC 31.4 (L) 32.0 - [facility] 35.7 gm/dL [facility] LABORATORY Platelets 263 145 - 357 [facility] x10(3)/[facility] LABORATORY RDWSD 54.8 (H) 36.0 - [facility] 45.[address] [facility] LABORATORY RDWCV 16.5 (H) 11.4 - [facility] 13.8 % [facility] LABORATORY MPV 9.1 7.6 - 12.9 [facility] LABORATORY nRBC % Auto 0.0 % [facility] LABORATORY nRBC Abs Auto 0.000 0.000 - [facility] 0.000 [facility] x10(3)/[facility] LABORATORY Specimen Anatomical Collection Method Collection Time Receive d Time (Source) Location / / Volume Laterality Blood specimen 08/14/2017 4:52 AM 018 5:08 (specimen) EST AM EST Resulting Agency Comment Spec In Lab Yonathan Smith MD HEMATOLOGY ORDERABLES Performing Organization Address City/[facility] [place] [facility]/[place] [address] (ABNORMAL) Prothrombin Time (08/14/2017 [...] [place] [address] (ABNORMAL) Basic Metabolic Panel (non-fasting) (08/14/2017 4:52 AM EST) athologist Signature Glucose Lvl 135 65 - 199 [facility] mg/dL [facility] [...] or in patients with acute kidney failure. [email or web address] Specimen Anatomical Collection Method Collection Time Receive d Time (Source) Location / / Volume Laterality Blood specimen 08/14/2017 4:52 AM 018 5:08 (specimen) EST AM EST Resulting Agency Comment Spec In Lab Yonathan Smith MD CHEMISTRY ORDERABLES Performing Organization Address City/[facility]/ZIP Code Phon e Number [address] POCT Glucose (08/14/2017 3:56 AM EST) P athologist Signature POC Glucose 135 65 - 199 [facility] mg/dL [facility] [...] S Performing Organization Address City/[facility] [place] [address] POCT Glucose (08/13/2017 11:13 PM EST) athologist Signature POC Glucose 118 65 - 199 [place] mg/dL [place] [...] Organization Address City/State/[place] [address] (ABNORMAL) POCT Glucose (08/13/2017 8:08 PM EST) athologist Signature POC Glucose 204 (H) 65 - 199 [facility] [...] Organization Address City/State/[place] [address] POCT Glucose (08/13/2017 4:02 PM EST) athologist Signature POC Glucose 145 65 - 199 [facility] R[facility] mg/dL [facility] [...] Organization Address City/State/[place] [address] POCT Glucose (08/13/2017 11:31 AM EST) athologist Signature POC Glucose 179 65 - 199 [facility] mg/dL [facility] [...] S Performing Organization Address City/[facility]/[place] [address] (ABNORMAL) POCT Glucose (08/13/2017 10:16 AM EST) athologist Signature POC Glucose 211 (H) 65 - 199 [facility] mg/dL [facility] [...] S Performing Organization Address City/[facility]/[place] [address] JULIAN, legs, multiple levels (08/13/2017 7:42 AM EST) Component Value Ref Test [facility] Method Time Signature VB Text Department: Vascular Surgery Lab VASCUBASE Report Patient: [id number] (GREGORY HOANG) CPT: 49507 ICD10: I99.8 Referring Physician: YONATHAN SMITH ?? Indications: s/p R 1,2,3 toe amps with red left foot, need n ew baseline Diabetes mellitus: yes ICD10 Diagnosis Code: I99.8 Findings: Right ?Pressure (mm Hg) ?? JULIAN ??Waveform ?TBI ?? Brachial Artery ?138 ? Dorsalis Pedis (Ankle) Arter y ?132 ? 0.94 ??Rapides- Biphasic ? Posterior Tibial (Ankle) Art anila ??154 ? 1.10 ??Rapides-Biphasic ? Fourth Toe ? 67 ? 0.48 [...] 156 65 - 199 [facility] mg/dL [facility] [...] City/State/[place] [address] (ABNORMAL) Differential, Automated (08/13/2017 5:33 AM EST) Patholo gist Method Time Signature Neutrophils % 77.8 % [facility] LABORATORY Neutr Abs (ANC) 7.83 (H) 1.70 - [facility] 6.10 [facility] x10(3)/[facility] LABORATORY Lymphocytes % 8.4 % [facility] LABORATORY Lymphocytes Abs 0.8 (L) 0.9 - 3.2 [facility] x10(3)/[facility] LABORATORY Monocytes % 8.3 % [facility] LABORATORY Monocyte Abs 0.8 0.3 - 0.9 [facility] x10(3)/[facility] LABORATORY Eosinophils % 4.6 % [facility] LABORATORY Eosinophils Abs 0.5 (H) 0.0 - 0.4 [facility] x10(3)/[facility] LABORATORY Basophils % 0.5 % [facility] LABORATORY Basophils Abs 0.0 0.0 - 0.1 [facility] x10(3)/[facility] LABORATORY Immature Gran % 0.40 [...] - 0.04 x10(3)/[facility] LABORATORY Specimen Anatomical Collection Method Collection Time Receive d Time (Source) Location / / Volume Laterality Blood specimen 08/13/2017 5:33 AM 018 6:04 (specimen) EST AM EST Resulting Agency Comment Spec In Lab Yonathan Smith MD HEMATOLOGY ORDERABLES Performing Organization Address City/State/ZIP Code Phon e Number [place] [id number] (ABNORMAL) Hemogram (08/13/2017 5:33 AM EST) Analysis Performed At Patho logist Time Signature WBC 10.1 (H) 4.0 - 9.5 [facility] x10(3)/[facility] LABORATORY RBC 3.21 (L) 4.58 - [facility] 5.54 [facility] x10(6)/[facility] LABORATORY Hemoglobin 9.2 (L) 13.7 - [facility] 16.[facility] gm/dL [facility] LABORATORY Hematocrit 29.6 (L) 40.5 - [facility] 48.5 % [facility] LABORATORY MCV 92.2 82.9 - [facility] 93.[address] [facility] LABORATORY MCH 28.7 27.5 - [facility] 32.1 pg [facility] LABORATORY MCHC 31.1 (L) 32.0 - [facility] 35.[facility] gm/dL [facility] LABORATORY Platelets 263 145 - 357 [facility] x10(3)/[facility] LABORATORY RDWSD 54.8 (H) 36.0 - [facility] [address] [facility] LABORATORY RDWCV 16.4 (H) 11.4 - [facility] 13.8 % [facility] LABORATORY MPV 9.2 7.6 - 12.9 [facility] LABORATORY nRBC % Auto 0.0 % [facility] LABORATORY nRBC Abs Auto 0.000 0.000 - [facility] 0.000 [facility] x10(3)/[facility] LABORATORY Specimen Anatomical Collection Method Collection Time Receive d Time (Source) Location / / Volume Laterality Blood specimen 08/13/2017 5:33 AM 018 6:04 (specimen) EST AM EST Resulting Agency Comment Spec In Lab Yonathan Smith MD HEMATOLOGY ORDERABLES Performing Organization Address City/State/[place] [address] (ABNORMAL) Prothrombin Time (08/13/2017 [...] City/State/[place] [address] (ABNORMAL) Basic Metabolic Panel (non-fasting) (08/13/2017 5:33 AM EST) P athologist Signature Glucose Lvl 126 65 - 199 [facility] mg/dL [facility] [...] or in patients with acute kidney failure. [email or web address] Specimen Anatomical Collection Method Collection Time Receive d Time (Source) Location / / Volume Laterality Blood specimen 08/13/2017 5:33 AM 018 6:04 (specimen) EST AM EST Resulting Agency Comment Spec In Lab Yonathan Smith MD CHEMISTRY ORDERABLES Performing Organization Address City/State/ZIP Code Phon e Number [address] POCT Glucose (08/13/2017 4:29 AM EST) athologist Signature POC Glucose 111 65 - 199 [place] mg/dL [place] [...] S Performing Organization Address City/[facility]/[place] [address] POCT Glucose (08/12/2017 11:28 [...] S Performing Organization Address City/[facility]/ZIP Code Phon e Number [address] (ABNORMAL) POCT Glucose (08/12/2017 [...] Organization Address City/State/ZIP Code Phon e Number [address] POCT Glucose (08/12/2017 4:24 PM EST) athologist Signature POC Glucose 161 65 - 199 [facility] mg/dL [place] [...] Organization Address City/State/ZIP Code Phon e Number [address] POCT Glucose (08/12/2017 12:00 PM EST) athologist Signature POC Glucose 167 65 - 199 [place] [facility] mg/dL [place] [...] Organization Address City/State/ZIP Code Phon e Number [address] POCT Glucose (08/12/2017 7:25 AM EST) athologist Signature POC Glucose 152 65 - 199 [place] ZHA[place] mg/dL [place] [...] City/State/[place] [address] (ABNORMAL) Differential, Automated (08/12/2017 6:29 AM EST) [facility] Method Time Signature Neutrophils % 78.7 % [facility] LABORATORY Neutr Abs (ANC) 7.94 (H) 1.70 - [facility] 6.10 [facility] x10(3)/[facility] LABORATORY Lymphocytes % 8.8 % [facility] LABORATORY Lymphocytes Abs 0.9 0.9 - 3.2 [facility] x10(3)/[facility] LABORATORY Monocytes % 7.8 % [facility] LABORATORY Monocyte Abs 0.8 0.3 - 0.9 [facility] x10(3)/[facility] LABORATORY Eosinophils % 3.9 % [facility] LABORATORY Eosinophils Abs 0.4 0.0 - 0.4 [facility] x10(3)/[facility] LABORATORY Basophils % 0.3 % [facility] LABORATORY Basophils Abs 0.0 0.0 - 0.1 [facility] x10(3)/[facility] LABORATORY Immature Gran % 0.50 % [facility] [...] Organization Address City/State/ZIP Code Phon e Number [address] (ABNORMAL) Hemogram (08/12/2017 6:29 AM EST) Analysis Performed At Patho logist Time Signature WBC 10.1 (H) 4.0 - 9.5 [facility](3[facility] LABORATORY RBC 3.02 (L) 4.58 - [place] 5.54 [facility] x10(6)/[facility] LABORATORY Hemoglobin 8.7 (L) 13.7 - [facility] 16.5 gm/dL [facility] LABORATORY Hematocrit 28.1 (L) 40.5 - [facility] 48.5 % [facility] LABORATORY MCV 93.0 82.9 - [facility] 93.[address] [facility] LABORATORY MCH 28.8 27.5 - [place] 32.1 pg [facility] LABORATORY MCHC 31.0 (L) 32.0 - [facility] 35.7 gm/dL [facility] LABORATORY Platelets 223 145 - 357 [facility] x10(3)/[facility] LABORATORY RDWSD 56.1 (H) 36.0 - [place] [address] [facility] LABORATORY RDWCV 16.4 (H) 11.4 - [facility] R[facility]AN 13.8 % [facility] LABORATORY MPV 9.0 7.6 - 12.9 [facility] LABORATORY nRBC % Auto 0.0 % [facility] LABORATORY nRBC Abs Auto 0.000 0.000 - [place] 0.000 [facility] x10(3)/[facility] LABORATORY Specimen Anatomical Collection Method Collection Time Receive d Time (Source) Location / / Volume Laterality Blood specimen 08/12/2017 6:29 AM 018 6:38 (specimen) EST AM EST Resulting Agency Comment Spec In Lab Yonathan Smith MD HEMATOLOGY ORDERABLES Performing Organization Address City/State/[place] [address] (ABNORMAL) Prothrombin Time (08/12/2017 [...] Organization Address City/State/[place] [address] (ABNORMAL) Basic Metabolic Panel (non-fasting) (08/12/2017 6:29 AM EST) athologist Signature Glucose Lvl 151 65 - 199 [facility] mg/dL [facility] [...] or in patients with acute kidney failure. [email or web address] Specimen Anatomical Collection Method Collection Time Receive d Time (Source) Location / / Volume Laterality Blood specimen 08/12/2017 6:29 AM 018 6:38 (specimen) EST AM EST Resulting Agency Comment Spec In Lab Yonathan Smith MD CHEMISTRY ORDERABLES Performing Organization Address City/[facility]/ZIP Code Phon e Number [address] POCT Glucose (08/12/2017 4:08 AM EST) athologist Signature POC Glucose 181 65 - 199 [facility] mg/dL [facility] [...] Organization Address City/State/[place] [address] (ABNORMAL) POCT Glucose (08/12/2017 12:17 AM EST) P athologist Signature POC Glucose 221 (H) 65 - 199 [facility] mg/dL [facility] [...] S Performing Organization Address City/[facility]/ZIP Code Phon e Number [address] (ABNORMAL) POCT Glucose (08/11/2017 [...] S Performing Organization Address City/[facility]/[place] [address] POCT Glucose (08/11/2017 5:59 PM EST) athologist Signature POC Glucose 169 65 - 199 [facility] mg/dL [place] [...] S Performing Organization Address City/[facility]/[place] [address] (ABNORMAL) POCT Glucose (08/11/2017 [...] Organization Address City/State/ZIP Code Phon e Number [address] POCT Glucose (08/11/2017 12:04 PM EST) athologist Signature POC Glucose 182 65 - 199 [facility] mg/dL [facility] [...] Organization Address City/State/ZIP Code Phon e Number [address] POCT Glucose (08/11/2017 7:31 AM EST) athologist Signature POC Glucose 156 65 - 199 [facility] mg/dL [facility] [...] Organization Address City/State/ZIP Code Phon e Number [address] (ABNORMAL) Differential, Automated (08/11/2017 6:16 AM EST) [facility] gist Method Time Signature Neutrophils % 83.7 % [facility] LABORATORY Neutr Abs (ANC) 10.76 (H) 1.70 - [facility] 6.10 [facility] x10(3)/[facility] LABORATORY Lymphocytes % 6.0 % [facility] LABORATORY Lymphocytes Abs 0.8 (L) 0.9 - 3.2 [facility] x10(3)/[facility] LABORATORY Monocytes % 7.5 % [facility] LABORATORY Monocyte Abs 1.0 (H) 0.3 - 0.9 [facility] x10(3)/[facility] LABORATORY Eosinophils % 2.0 % [facility] LABORATORY Eosinophils Abs 0.3 0.0 - 0.4 [facility] x10(3)/[facility] LABORATORY Basophils % 0.3 % [facility] LABORATORY Basophils Abs 0.0 0.0 - 0.1 [facility] x10(3)/[facility] LABORATORY Immature Gran % 0.50 % [facility] [...] City/State/[place] [address] (ABNORMAL) Hemogram (08/11/2017 6:16 AM EST) Analysis Performed At Patho logist Time Signature WBC 12.9 (H) 4.0 - 9.5 [facility] x10(3)/[facility] LABORATORY RBC 3.28 (L) 4.58 - [facility] 5.54 [facility] x10(6)/[facility] LABORATORY Hemoglobin 9.5 (L) 13.7 - [facility] 16.5 gm/dL [facility] LABORATORY Hematocrit 29.8 (L) 40.5 - [facility] 48.5 % [facility] LABORATORY MCV 90.9 82.9 - [facility] 93.[address] [facility] LABORATORY MCH 29.0 27.5 - [place] RYAN 32.1 pg [facility] LABORATORY MCHC 31.9 (L) 32.0 - [place] DAVIS 35.7 gm/dL [facility] LABORATORY Platelets 236 145 - 357 [facility] x10(3)/[facility] LABORATORY RDWSD 53.5 (H) 36.0 - [facility] 45.[address] [facility] LABORATORY RDWCV 16.3 (H) 11.4 - [facility] R[facility] 13.8 % [facility] LABORATORY MPV 8.8 7.6 - 12.9 [facility] LABORATORY nRBC % Auto 0.0 % [facility] LABORATORY nRBC Abs Auto 0.000 0.000 - [facility] RYAN 0.000 [facility] x10(3)/[facility] LABORATORY Specimen Anatomical Collection Method Collection Time Receive d Time (Source) Location / / Volume Laterality Blood specimen 08/11/2017 6:16 AM 018 6:24 (specimen) EST AM EST Resulting Agency Comment Spec In Lab Yonathan Smith MD HEMATOLOGY ORDERABLES Performing Organization Address City/State/[place] [address] (ABNORMAL) Prothrombin Time (08/11/2017 [...] [place] [address] Basic Metabolic Panel (non-fasting) (08/11/2017 6:16 AM EST) athologist Signature Glucose Lvl 139 65 - 199 [facility] mg/dL [facility] [...] or in patients with acute kidney failure. [email or web address] Specimen Anatomical Collection Method Collection Time Receive d Time (Source) Location / / Volume Laterality Blood specimen 08/11/2017 6:16 AM 018 6:24 (specimen) EST AM EST Resulting Agency Comment Spec In Lab Yonathan Smith MD CHEMISTRY ORDERABLES Performing Organization Address City/[facility]/ZIP Code Phon e Number [address] POCT Glucose (08/11/2017 4:07 AM EST) athologist Signature POC Glucose 162 65 - 199 [place] mg/dL [place] [...] Organization Address City/State/ZIP Code Phon e Number [address] POCT Glucose (08/10/2017 11:59 [...] Organization Address City/State/[place] [address] POCT Glucose (08/10/2017 8:12 PM EST) athologist Signature POC Glucose 156 65 - 199 [facility] mg/dL [facility] [...] Organization Address City/State/[place] [address] (ABNORMAL) POCT Glucose (08/10/2017 4:42 PM EST) P athologist Signature POC Glucose 211 (H) 65 - 199 [facility] mg/dL [facility] [...] Organization Address City/State/ZIP Code Phon e Number [place] [id number]OSP[address] LAB[address]ORY Drive (ABNORMAL) Differential, Automated (08/10/2017 2:30 PM EST) Patholo gist Method Time Signature Neutrophils % 87.6 % [facility] LABORATORY Neutr Abs (ANC) 9.90 (H) 1.70 - [facility] 6.10 [facility] x10(3)/[facility] LABORATORY Lymphocytes % 4.3 % [facility] LABORATORY Lymphocytes Abs 0.5 (L) 0.9 - 3.2 [facility] x10(3)/[facility] LABORATORY Monocytes % 6.0 % [facility] LABORATORY Monocyte Abs 0.7 0.3 - 0.9 [facility] x10(3)/[facility] LABORATORY Eosinophils % 1.1 % [facility] LABORATORY Eosinophils Abs 0.1 0.0 - 0.4 [facility] x10(3)/[facility] LABORATORY Basophils % 0.4 % [facility] LABORATORY Basophils Abs 0.0 0.0 - 0.1 [facility] x10(3)/[facility] LABORATORY Immature Gran % 0.60 % [facility] [...] Gran Abs 0.07 (H) 0.00 - 0.04 x10(3)/[facility] LABORATORY Specimen Anatomical Collection Method Collection Time Receive d Time (Source) Location / / Volume Laterality Blood specimen 08/10/2017 2:30 PM 018 2:48 (specimen) EST PM EST Resulting Agency Comment Spec In Lab Yonathan Smith MD HEMATOLOGY ORDERABLES Performing Organization Address City/State/[place] [address] (ABNORMAL) Hemogram (08/10/2017 2:30 PM EST) Analysis Performed At Patho logist Time Signature WBC 11.3 (H) 4.0 - 9.5 [facility] x10(3)/[facility] LABORATORY RBC 3.13 (L) 4.58 - [facility] 5.54 [facility] x10(6)/[facility] LABORATORY Hemoglobin 8.9 (L) 13.7 - [facility] 16.5 gm/dL [facility] LABORATORY Hematocrit 28.4 (L) 40.5 - [facility] 48.5 % [facility] LABORATORY MCV 90.7 82.9 - [facility] LABORATORY MCH 28.4 27.5 - [facility] 32.1 pg [facility] LABORATORY MCHC 31.3 (L) 32.0 - [facility] 35.[facility] gm/dL [facility] LABORATORY Platelets 213 145 - 357 [facility] x10(3)/[facility] LABORATORY RDWSD 53.7 (H) 36.0 - [facility]AN [address] [facility] LABORATORY RDWCV 16.4 (H) 11.4 - [facility] 13.8 % [facility] LABORATORY MPV 8.9 7.6 - 12.9 [facility] LABORATORY nRBC % Auto 0.0 % [facility] LABORATORY nRBC Abs Auto 0.000 0.000 - [facility] R[facility] 0.000 [facility] x10(3)/[facility] LABORATORY Specimen Anatomical Collection Method Collection Time Receive d Time (Source) Location / / Volume Laterality Blood specimen 08/10/2017 2:30 PM 018 2:48 (specimen) EST PM EST Resulting Agency Comment Spec In Lab Yonathan Smith MD HEMATOLOGY ORDERABLES Performing Organization Address City/State/ZIP Code Phon e Number [address] (ABNORMAL) POCT Glucose (08/10/2017 1:50 PM EST) athologist Signature POC Glucose 243 (H) 65 - 199 [facility] [...] S Performing Organization Address City/[facility]/ZIP Code Phon e Number [address] POCT Glucose (08/10/2017 11:21 AM EST) athologist Signature POC Glucose 156 65 - 199 [facility]/dL [facility] [...] S Performing Organization Address City/[facility]/[place] [address] (ABNORMAL) Differential, Automated (08/10/2017 10:28 AM EST) [facility] Signature Neutrophils % 85.3 % [facility] LABORATORY Neutr Abs (ANC) 9.43 (H) 1.70 - [facility] 6.10 [facility] x10(3)/[facility] LABORATORY Lymphocytes % 5.5 % [facility] LABORATORY Lymphocytes Abs 0.6 (L) 0.9 - 3.2 [facility] x10(3)/[facility] LABORATORY Monocytes % 5.9 % [facility] LABORATORY Monocyte Abs 0.6 0.3 - 0.9 [facility] x10(3)/[facility] LABORATORY Eosinophils % 2.1 % [facility] LABORATORY Eosinophils Abs 0.2 0.0 - 0.4 [facility] x10(3)/[facility] LABORATORY Basophils % 0.4 % [facility] LABORATORY Basophils Abs 0.0 0.0 - 0.1 [facility] x10(3)/[facility] LABORATORY Immature Gran % 0.80 % [facility] [...] Gran Abs 0.09 (H) 0.00 - 0.04 x10(3)/[facility] LABORATORY Specimen Anatomical Collection Method Collection Time Receive d Time (Source) Location / / Volume Laterality Blood specimen 08/10/2017 10:28 8 (specimen) AM EST 10:35 AM EST Resulting Agency Comment Spec In Lab Yonathan Smith MD HEMATOLOGY ORDERABLES Performing Organization Address City/State/[place] [address] (ABNORMAL) Hemogram (08/10/2017 10:28 AM EST) Analysis Performed At Patho logist Time Signature WBC 11.0 (H) 4.0 - 9.5 [facility] x10(3)/[facility] LABORATORY RBC 3.02 (L) 4.58 - [facility] 5.54 [facility] x10(6)/[facility] LABORATORY Hemoglobin 8.8 (L) 13.7 - [facility] 16.[facility] gm/dL [facility] LABORATORY Hematocrit 28.1 (L) 40.5 - [facility] 48.5 % [facility] LABORATORY MCV 93.0 82.9 - [facility] 93.1 [facility] MCH 29.1 27.5 - [place] DAVIS 32.1 pg [facility] MCHC 31.3 (L) 32.0 - [place] DAVIS 35.7 gm/dL [facility] Platelets 207 145 - 357 [facility] x10(3)/[facility] LABORATORY RDWSD 55.3 (H) 36.0 - [place] RYAN 45.0 [facility] RDWCV 16.4 (H) 11.4 - [facility] 13.8 % [facility] MPV 9.0 7.6 - 12.9 [facility] LABORATORY nRBC % Auto 0.0 % [facility] nRBC Abs Auto 0.000 0.000 - [facility] R[facility] 0.000 [facility] x10(3)/[facility] LABORATORY Specimen Anatomical Collection Method Collection Time Receive d Time (Source) Location / / Volume Laterality Blood specimen 08/10/2017 10:28 8 (specimen) AM EST 10:35 AM EST Resulting Agency Comment Spec In Lab Yonathan Smith MD HEMATOLOGY ORDERABLES Performing Organization Address City/State/[place] [address] VS Angiogram/intervention (vascular) (08/10/2017 [...] 5. Completion RLE angiogram 6. L FIELD CROPS HARVEST MACHINE OPERATOR angiogram 7. 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 - L FIELD CROPS HARVEST MACHINE OPERATOR angriogram demonstrated: High fe moral bifurcation over the proximal half of the femoral head. L FIELD CROPS HARVEST MACHINE OPERATOR access in the distal L FIELD CROPS HARVEST MACHINE OPERATOR. - Closure device: Mynx Technical [...] for a 45cm 5F Destination. V18 and [place] a nd QuickCross catheters were used to [...] Access appeared in the distal R FIELD CROPS HARVEST MACHINE OPERATOR. Closure and sheath removal was [...] 5. Completion RLE angiogram 6. L FIELD CROPS HARVEST MACHINE OPERATOR angiogram 7. 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 - L FIELD CROPS HARVEST MACHINE OPERATOR angriogram demonstrated: High fe moral bifurcation over the proximal half of the femoral head. L FIELD CROPS HARVEST MACHINE OPERATOR access in the distal L FIELD CROPS HARVEST MACHINE OPERATOR. - Closure device: Mynx Technical [...] for a 45cm 5F Destination. V18 and [place] a nd QuickCross catheters were used to [...] Access appeared in the distal R FIELD CROPS HARVEST MACHINE OPERATOR. Closure and sheath removal was [...] (ABNORMAL) Differential, Automated (08/10/2017 5:50 AM EST) [facility] gist Method Time Signature Neutrophils % 80.1 % [facility] LABORATORY Neutr Abs (ANC) 9.01 (H) 1.70 - [facility] 6.10 [facility] x10(3)/[facility] LABORATORY Lymphocytes % 8.8 % [facility] LABORATORY Lymphocytes Abs 1.0 0.9 - 3.2 [facility] x10(3)/[facility] LABORATORY Monocytes % 8.3 % [facility] LABORATORY Monocyte Abs 0.9 0.3 - 0.9 [facility] x10(3)/[facility] LABORATORY Eosinophils % 2.0 % [facility] LABORATORY Eosinophils Abs 0.2 0.0 - 0.4 [facility] x10(3)/[facility] LABORATORY Basophils % 0.4 % [facility] LABORATORY Basophils Abs 0.0 0.0 - 0.1 [facility] x10(3)/[facility] LABORATORY Immature Gran % 0.40 [...] City/State/[place] [address] (ABNORMAL) Hemogram (08/10/2017 5:50 AM EST) Analysis Performed At Patho logist Time Signature WBC 11.3 (H) 4.0 - 9.5 [facility] x10(3)/[facility] LABORATORY RBC 3.15 (L) 4.58 - [facility] 5.54 [facility] x10(6)/[facility] LABORATORY Hemoglobin 8.9 (L) 13.7 - [facility] 16.[facility] gm/dL [facility] LABORATORY Hematocrit 29.0 (L) 40.5 - [facility] 48.5 % [facility] LABORATORY MCV 92.1 82.9 - [facility] 93.[address] [facility] LABORATORY MCH 28.3 27.5 - [facility] R[facility] 32.1 pg [facility] LABORATORY MCHC 30.7 (L) 32.0 - [facility] 35.7 gm/dL [facility] LABORATORY Platelets 231 145 - 357 [facility] x10(3)/[facility] LABORATORY RDWSD 53.9 (H) 36.0 - [facility] [address] [facility] LABORATORY RDWCV 16.2 (H) 11.4 - [facility] 13.8 % [facility] LABORATORY MPV 8.7 7.6 - 12.9 [facility] LABORATORY nRBC % Auto 0.0 % [facility] LABORATORY nRBC Abs Auto 0.000 0.000 - [facility] 0.000 [facility] x10(3)/[facility] LABORATORY Specimen Anatomical Collection Method Collection Time Receive d Time (Source) Location / / Volume Laterality Blood specimen 08/10/2017 5:50 AM 018 5:59 (specimen) EST AM EST Resulting Agency Comment Spec In Lab Yonathan Smith MD HEMATOLOGY ORDERABLES Performing Organization Address City/State/[place] [address] (ABNORMAL) Basic Metabolic Panel (non-fasting) (08/10/2017 5:50 AM EST) athologist Signature Glucose Lvl 135 65 - 199 [facility] mg/dL [facility] [...] or in patients with acute kidney failure. [email or web address] Specimen Anatomical Collection Method Collection Time Receive d Time (Source) Location / / Volume Laterality Blood specimen 08/10/2017 5:50 AM 018 5:59 (specimen) EST AM EST Resulting Agency Comment Spec In Lab Yonathan Smith MD CHEMISTRY ORDERABLES Performing Organization Address City/[facility]/[place] [address] (ABNORMAL) Prothrombin Time (08/10/2017 [...] [place] [address] (ABNORMAL) POCT Glucose (08/10/2017 4:01 AM EST) athologist Signature POC Glucose 206 (H) 65 - 199 [facility] mg/dL [facility] [...] S Performing Organization Address City/[facility]/ZIP Code [place] [address] POCT Glucose (08/10/2017 2:01 AM EST) athologist Signature POC Glucose 188 65 - 199 [place] mg/dL [facility] [...] Organization Address City/State/[place] [address] (ABNORMAL) POCT Glucose (08/09/2017 11:42 PM EST) athologist Signature POC Glucose 283 (H) 65 - 199 [facility]/dL [facility] [...] Organization Address City/State/[place] [address] POCT Glucose (08/09/2017 8:55 PM EST) athologist Signature POC Glucose 182 65 - 199 [place] [place] mg/dL [facility] [...] Organization Address City/State/[place] [address] (ABNORMAL) APTT (08/09/2017 6:42 PM EST) athologist Signature PTT 90 (H) 25 - 35 sec [facility] LABORATORY Comment: The recommended therapeutic range for fu ll dose, unfractionated heparin at [facility] is 80 ? 114 seconds. The use [...] Organization Address City/[facility]/ZIP [facility] Phon e Number [address] POCT Glucose (08/09/2017 4:41 PM EST) athologist Signature POC Glucose 195 65 - 199 [facility] mg/dL [facility] [...] S Performing Organization Address City/[facility] [place] [facility]/[place] [address] POCT Glucose (08/09/2017 12:29 PM EST) athologist Signature POC Glucose 140 65 - 199 [facility] mg/dL [facility] [...] Organization Address City/State/[place] [address] POCT Glucose (08/09/2017 9:59 AM EST) P athologist Signature POC Glucose 135 65 - 199 [facility] mg/dL [facility] [...] S Performing Organization Address City/[facility]/[place] [address] Specimen to Pathology (08/09/2017 [...] S Performing Organization Address City/[facility]/[place] [address] Surgical Pathology Report (08/09/2017 8:40 AM EST) Component Value Ref Test Analysis Performed At Patholo gist Range Method Time Signature Surgical [id number] ? Location: [facility]; [facility]; A [facility] Report The [...] Henrique Flower Verified: ??08/13/2017 ?Pathologist Performed at: ??-[facility] Dept. of Pathology, [place], [place] CLINICAL INFORMATION Specimen Submitted: A - [...] City/State/[place] [address] Anaerobic Culture (08/09/2017 8:30 AM EST) [facility] gist Method Time Signature Anaerobic No anaerobic [facility] Culture [facility] LABORATORY Specimen Anatomical Collection Method Collection Time [...] Organization Address City/State/[place] [address] (ABNORMAL) Abscess/Wound Aspirate Culture (08/09/2017 8:30 AM EST) Patholo gist Method Time Signature Abscess/Wound Moderate mixed [place] Aspirate bacterial [facility] Culture morphotypes [facility] normal LABORATORY cutaneous leroy (A) Gram Stain Rare White Blood Cells [place] Few Gram Positive Cocci in pairs [facility] () [facility] LABORATORY Organism Gram Positive [facility] Cocci in pairs [facility] () [facility] LABORATORY [...] - GENERAL ORDER ROBSON Performing Organization Address City/[facility]/ZIP Code Phon e Number [address] POCT Glucose (08/09/2017 4:28 AM EST) P athologist Signature POC Glucose 128 65 - 199 [facility] mg/dL [facility] [...] S Performing Organization Address City/[facility]/[place] [address] ABORH Recheck Status (08/09/2017 1:10 AM EST) [facility] gist Method Time Signature ABORH Type [...] [place] [address] Antibody screen (08/09/2017 1:10 AM EST) [facility] Method Time Signature Ab Screen Negative [facility] LABORATORY Expires at 08/12/2017 [facility] 2359 on: [facility] LABORATORY Specimen Anatomical Collection Method Collection Time Receive d Time (Source) Location / / Volume Laterality Blood specimen 08/09/2017 1:10 AM 018 1:35 (specimen) EST AM EST Resulting Agency Comment Spec In Lab Yonathan Smith MD BLOOD BANK ORDERABLES Performing Organization Address City/[facility]/[place] [address] ABO/Rh Typing (08/09/2017 1:10 [...] [place] [address] (ABNORMAL) APTT (08/09/2017 1:10 AM EST) P athologist Signature PTT 86 (H) 25 - 35 sec [facility] LABORATORY Comment: The recommended therapeutic range for fu ll dose, unfractionated heparin at [facility] is 80 ? 114 seconds. The use [...] City/State/[place] [address] (ABNORMAL) Differential, Automated (08/09/2017 1:10 AM EST) [facility] gist Method Time Signature Neutrophils % 76.2 % [facility] LABORATORY Neutr Abs (ANC) 8.59 (H) 1.70 - [facility] 6.10 [facility] x10(3)/[facility] LABORATORY Lymphocytes % 11.0 % [facility] LABORATORY Lymphocytes Abs 1.2 0.9 - 3.2 [facility] x10(3)/[facility] LABORATORY Monocytes % 8.4 % [facility] LABORATORY Monocyte Abs 1.0 (H) 0.3 - 0.9 [facility] x10(3)/[facility] LABORATORY Eosinophils % 3.5 % [facility] LABORATORY Eosinophils Abs 0.4 0.0 - 0.4 [facility] x10(3)/[facility] LABORATORY Basophils % 0.5 % [facility] LABORATORY Basophils Abs 0.1 0.0 - 0.1 [facility] x10(3)/[facility] LABORATORY Immature Gran % 0.40 [...] City/State/[place] [address] (ABNORMAL) Hemogram (08/09/2017 1:10 AM EST) Analysis Performed At Patho logist Time Signature WBC 11.3 (H) 4.0 - 9.5 [facility] [facility] x10(3)/[facility] LABORATORY RBC 3.47 (L) 4.58 - [facility] x10(6)/[facility] LABORATORY Hemoglobin 10.0 (L) 13.7 - [facility] 16.5 gm/dL [facility] LABORATORY Hematocrit 31.9 (L) 40.5 - [facility] [place] 48.5 % [facility] LABORATORY MCV 91.9 82.9 - [facility] LABORATORY MCH 28.8 27.5 - [facility] 32.1 pg [facility] LABORATORY MCHC 31.3 (L) 32.0 - [facility] [place] 35.7 gm/dL [facility] LABORATORY Platelets 234 145 - 357 [facility] x10(3)/[facility] LABORATORY RDWSD 54.0 (H) 36.0 - [facility] [place] 45.[address] [facility] LABORATORY RDWCV 16.2 (H) 11.4 - [facility] RYAN 13.8 % [facility] LABORATORY MPV 8.7 7.6 - 12.9 [facility] LABORATORY nRBC % Auto 0.0 % [facility] LABORATORY nRBC Abs Auto 0.000 0.000 - [facility] RYAN 0.000 [facility] x10(3)/[facility] LABORATORY Specimen Anatomical Collection Method Collection Time Receive d Time (Source) Location / / Volume Laterality Blood specimen 08/09/2017 1:10 AM 018 1:19 (specimen) EST AM EST Resulting Agency Comment Spec In Lab Yonathan Smith MD HEMATOLOGY ORDERABLES Performing Organization Address City/State/[place] [address] (ABNORMAL) Prothrombin Time (08/09/2017 [...] Organization Address City/State/ZIP Code Phon e Number [place] [id number]OSPITAL LAB[address]ORY [address] (ABNORMAL) Basic Metabolic Panel (non-fasting) (08/09/2017 1:10 AM EST) athologist Signature Glucose Lvl 108 65 - 199 [facility] mg/dL [facility] [...] or in patients with acute kidney failure. [email or web address] Specimen Anatomical Collection Method Collection Time Receive d Time (Source) Location / / Volume Laterality Blood specimen 08/09/2017 1:10 AM 018 1:19 (specimen) EST AM EST Resulting Agency Comment Spec In Lab Yonathan Smith MD CHEMISTRY ORDERABLES Performing Organization Address City/[facility]/ZIP Code Phon e Number [address] POCT Glucose (08/09/2017 12:05 AM EST) athologist Signature POC Glucose 128 65 - 199 [facility] mg/dL [facility] [...] S Performing Organization Address City/[facility]/[place] [address] (ABNORMAL) POCT Glucose (08/08/2017 7:36 PM EST) athologist Signature POC Glucose 215 (H) 65 - 199 [facility] [place] mg/dL [facility] [...] S Performing Organization Address City/[facility]/[place] [address] (ABNORMAL) POCT Glucose (08/08/2017 6:23 PM EST) athologist Signature POC Glucose 216 (H) 65 - 199 [facility] mg/dL [facility] LABORATORY Comment: Supplemental ranges: <140 mg/dL before meals <180 mg/dL all other times of the day Specimen Anatomical Collection Method Collection Time Receive d Time (Source) Location / / Volume Laterality Blood specimen 08/08/2017 6:23 PM 018 6:23 (specimen) EST PM EST Yonathan Smith MD POINT OF CARE TEST ORDERABLE S Performing Organization Address [facility]/[place] [address] (ABNORMAL) APTT (08/08/2017 6:00 PM EST) athologist Signature PTT 97 (H) 25 - 35 sec [facility] LABORATORY Comment: The recommended therapeutic range for fu ll dose, unfractionated heparin at [facility] is 80 ? 114 seconds. The use [...] [place] [address] POCT Glucose (08/08/2017 4:42 PM EST) athologist Signature POC Glucose 78 65 - 199 [facility] mg/dL [facility] [...] Organization Address City/State/[place] [address] (ABNORMAL) POCT Glucose (08/08/2017 4:01 PM EST) P athologist Signature POC Glucose 58 (L) 65 - 199 [facility] mg/dL [facility] [...] Organization Address City/State/[place] [address] POCT Glucose (08/08/2017 11:51 AM EST) P athologist Signature POC Glucose 90 65 - 199 [facility] mg/dL [facility] [...] Organization Address City/State/ZIP Code Phon e Number [address] (ABNORMAL) APTT (08/08/2017 10:27 AM EST) P athologist Signature PTT 64 (H) 25 - 35 sec [facility] LABORATORY Comment: The recommended therapeutic range for fu ll dose, unfractionated heparin at [facility] is 80 ? 114 seconds. The use [...] [place]/ZIP Code Phon e Number [address] POCT Glucose (08/08/2017 8:02 AM EST) athologist Signature POC Glucose 178 65 - 199 [facility] mg/dL [facility] [...] S Performing Organization Address City/[facility]/[place] [address] (ABNORMAL) APTT (08/08/2017 4:51 AM EST) athologist Signature PTT >160 25 - 35 [facility] (Critical) sec [facility] LABORATORY Comment: Called by: HOWARD, Read back by: Melba Jaramillo, Date/Time:08/08/17 05:43. The recommended therapeutic range for fu ll dose, unfractionated heparin at [facility] is 80 ? 114 seconds. The use [...] Address City/State/ZIP [place] [address] (ABNORMAL) Differential, Automated (08/08/2017 4:51 AM EST) [facility] Method Time Signature Neutrophils % 77.9 % [facility] LABORATORY Neutr Abs (ANC) 8.17 (H) 1.70 - [facility] 6.10 [facility] x10(3)/[facility] LABORATORY Lymphocytes % 10.3 % [facility] LABORATORY Lymphocytes Abs 1.1 0.9 - 3.2 [facility] x10(3)/[facility] LABORATORY Monocytes % 7.0 % [facility] LABORATORY Monocyte Abs 0.7 0.3 - 0.9 [facility] x10(3)/[facility] LABORATORY Eosinophils % 3.6 % [facility] LABORATORY Eosinophils Abs 0.4 0.0 - 0.4 [facility] x10(3)/[facility] LABORATORY Basophils % 0.5 % [facility] LABORATORY Basophils Abs 0.0 0.0 - 0.1 [facility] x10(3)/[facility] LABORATORY Immature Gran % 0.70 [...] Gran Abs 0.07 (H) 0.00 - 0.04 x10(3)/[facility] LABORATORY Specimen Anatomical Collection Method Collection Time Receive d Time (Source) Location / / Volume Laterality Blood specimen 08/08/2017 4:51 AM 018 5:14 (specimen) EST AM EST Resulting Agency Comment Spec In Lab Yonathan Smith MD HEMATOLOGY ORDERABLES Performing Organization Address City/State/[place] [address] (ABNORMAL) Hemogram (08/08/2017 4:51 AM EST) Analysis Performed At Patho logist Time Signature WBC 10.5 (H) 4.0 - 9.5 [facility] [place] x10(3)/[facility] LABORATORY RBC 3.27 (L) 4.58 - [place] 5.54 [facility] x10(6)/[facility] LABORATORY Hemoglobin 9.3 (L) 13.7 - [facility] 16.5 gm/dL [facility] LABORATORY Hematocrit 30.3 (L) 40.5 - [facility] [place] 48.5 % [facility] LABORATORY MCV 92.7 82.9 - [facility] [place] 93.1 [facility] LABORATORY MCH 28.4 27.5 - [place] 32.1 pg [facility] LABORATORY MCHC 30.7 (L) 32.0 - [facility] 35.7 gm/dL [facility] LABORATORY Platelets 252 145 - 357 [facility] x10(3)/[facility] LABORATORY RDWSD 54.6 (H) 36.0 - [facility] LABORATORY RDWCV 16.2 (H) 11.4 - [facility] 13.8 % [facility] LABORATORY MPV 9.1 7.6 - 12.9 [facility] LABORATORY nRBC % Auto 0.0 % [facility] LABORATORY nRBC Abs Auto 0.000 0.000 - [facility] 0.000 [facility] x10(3)/[facility] LABORATORY Specimen Anatomical Collection Method Collection Time Receive d Time (Source) Location / / Volume Laterality Blood specimen 08/08/2017 4:51 AM 018 5:14 (specimen) EST AM EST Resulting Agency Comment Spec In Lab Yonathan Smith MD HEMATOLOGY ORDERABLES Performing Organization Address City/State/ZIP Code Phon e Number [place] [id number] HOSPITAL LABORATORY Drive (ABNORMAL) Prothrombin Time (08/08/2017 [...] City/State/[place] [address] (ABNORMAL) Basic Metabolic Panel (non-fasting) (08/08/2017 4:51 AM EST) athologist Signature Glucose Lvl 229 (H) 65 - 199 [facility] mg/dL [facility] [...] or in patients with acute kidney failure. [email or web address] Specimen Anatomical Collection Method Collection Time Receive d Time (Source) Location / / Volume Laterality Blood specimen 08/08/2017 4:51 AM 018 5:14 (specimen) EST AM EST Resulting Agency Comment Spec In Lab Yonathan Smith MD CHEMISTRY ORDERABLES Performing Organization Address City/[facility] Phon e Number [address] POCT Glucose (08/08/2017 4:20 AM EST) athologist Signature POC Glucose 193 65 - 199 [facility] [place] mg/dL [facility] [...] S Performing Organization Address City/[facility]/ZIP Code Phon e Number [address] POCT Glucose (08/07/2017 11:11 PM EST) P athologist Signature POC Glucose 124 65 - 199 [facility] mg/dL [facility] [...] S Performing Organization Address City/[facility]/[place] [address] (ABNORMAL) APTT (08/07/2017 10:18 PM EST) athologist Signature PTT 114 (H) 25 - 35 sec [facility] LABORATORY Comment: The recommended therapeutic range for fu ll dose, unfractionated heparin at [facility] is 80 ? 114 seconds. The use [...] Smith MD HEMATOLOGY ORDERABLES Performing Organization Address [facility]/[place] [address] POCT Glucose (08/07/2017 8:10 PM EST) athologist Signature POC Glucose 140 65 - 199 [facility] [place] mg/dL [facility] [...] S Performing Organization Address City/[facility]/ZIP Code Phon e Number [address] POCT Glucose (08/07/2017 5:27 PM EST) athologist Signature POC Glucose 187 65 - 199 [facility] mg/dL [facility] [...] S Performing Organization Address City/[facility]/ZIP Code Phon e Number [address] POCT Glucose (08/07/2017 3:29 PM EST) athologist Signature POC Glucose 86 65 - 199 [facility] [place] mg/dL [facility] LABORATORY Comment: Supplemental ranges: <140 mg/dL before meals <180 mg/dL all other times of the day Specimen Anatomical Collection Method Collection Time Receive d Time (Source) Location / / Volume Laterality Blood specimen 08/07/2017 3:29 PM 018 3:29 (specimen) EST PM EST Yonathan Smith MD POINT OF CARE TEST ORDERABLE S Performing Organization Address [facility] [place] [address] (ABNORMAL) APTT (08/07/2017 2:50 PM EST) athologist Signature PTT 60 (H) 25 - 35 sec [facility] LABORATORY Comment: The recommended therapeutic range for fu ll dose, unfractionated heparin at [facility] is 80 ? 114 seconds. The use [...] Organization Address City/[facility]/ZIP [facility] [place] [address] (ABNORMAL) POCT Glucose (08/07/2017 2:23 PM EST) athologist Signature POC Glucose 55 (L) 65 - 199 [facility] [place] mg/dL [facility] [...] Organization Address City/State/ZIP Code Phon e Number [address] POCT Glucose (08/07/2017 12:08 PM EST) P athologist Signature POC Glucose 77 65 - 199 [facility] mg/dL [facility] [...] Organization Address City/State/[place] [address] (ABNORMAL) Differential, Automated (08/07/2017 7:30 AM EST) Patholo gist Method Time Signature Neutrophils % 73.8 % [facility] LABORATORY Neutr Abs (ANC) 7.17 (H) 1.70 - [facility] 6.10 [facility] x10(3)/[facility] LABORATORY Lymphocytes % 12.2 % [facility] LABORATORY Lymphocytes Abs 1.2 0.9 - 3.2 [facility] x10(3)/[facility] LABORATORY Monocytes % 9.0 % [facility] LABORATORY Monocyte Abs 0.9 0.3 - 0.9 [facility] x10(3)/[facility] LABORATORY Eosinophils % 3.9 % [facility] LABORATORY Eosinophils Abs 0.4 0.0 - 0.4 [facility] x10(3)/[facility] LABORATORY Basophils % 0.6 % [facility] LABORATORY Basophils Abs 0.1 0.0 - 0.1 [facility] x10(3)/[facility] LABORATORY Immature Gran % 0.50 % [facility] [...] City/State/[place] [address] (ABNORMAL) Hemogram (08/07/2017 7:30 AM EST) Analysis Performed At Patho logist Time Signature WBC 9.7 (H) 4.0 - 9.5 [facility] x10(3)/[facility] LABORATORY RBC 3.54 (L) 4.58 - [facility] 5.54 [facility] x10(6)/[facility] LABORATORY Hemoglobin 9.9 (L) 13.7 - [facility] [place] 16.5 gm/dL [facility] LABORATORY Hematocrit 32.3 (L) 40.5 - [facility] 48.5 % [facility] LABORATORY MCV 91.2 82.9 - [facility] [facility] LABORATORY MCH 28.0 27.5 - [facility] 32.1 pg [facility] LABORATORY MCHC 30.7 (L) 32.0 - [facility] [place] 35.7 gm/dL [facility] LABORATORY Platelets 312 145 - 357 [facility] x10(3)/[facility] LABORATORY RDWSD 53.2 (H) 36.0 - [facility] [place] 45.0 [facility] RDWCV 16.0 (H) 11.4 - [facility] 13.8 % [facility] LABORATORY MPV 8.9 7.6 - 12.9 [facility] LABORATORY nRBC % Auto 0.0 % [facility] LABORATORY nRBC Abs Auto 0.000 0.000 - [facility] 0.000 [facility] x10(3)/[facility] LABORATORY Specimen Anatomical Collection Method Collection Time Receive d Time (Source) Location / / Volume Laterality Blood specimen 08/07/2017 7:30 AM 018 7:45 (specimen) EST AM EST Resulting Agency Comment Spec In Lab Yonathan Smith MD HEMATOLOGY ORDERABLES Performing Organization Address City/State/[place] [address] (ABNORMAL) Basic Metabolic Panel (non-fasting) (08/07/2017 7:30 AM EST) P athologist Signature Glucose Lvl 80 65 - 199 [facility] mg/dL [facility] [...] or in patients with acute kidney failure. [email or web address] Specimen Anatomical Collection Method Collection Time Receive d Time (Source) Location / / Volume Laterality Blood specimen 08/07/2017 7:30 AM 018 7:45 (specimen) EST AM EST Resulting Agency Comment Spec In Lab Yonathan Smith MD CHEMISTRY ORDERABLES Performing Organization Address City/[facility]/ZIP Code Phon e Number [address] POCT Glucose (08/07/2017 7:27 AM EST) athologist Signature POC Glucose 81 65 - 199 [facility] mg/dL [facility] [...] S Performing Organization Address City/[facility]/ZIP Code Phon e Number [address] APTT (08/07/2017 7:04 AM EST) athologist Signature PTT 34 25 - 35 sec [facility] LABORATORY Comment: The recommended therapeutic range for fu ll dose, unfractionated heparin at [facility] is 80 ? 114 seconds. The use [...] [place]/ZIP Code Phon e Number [address] (ABNORMAL) Prothrombin Time (08/07/2017 [...] Organization Address City/State/ZIP Code Phon e Number [address] POCT Glucose (08/07/2017 4:03 AM EST) athologist Signature POC Glucose 93 65 - 199 [facility] [place] mg/dL [facility] [...] Organization Address City/State/ZIP Code Phon e Number [address] POCT Glucose (08/07/2017 12:04 AM EST) athologist Signature POC Glucose 107 65 - 199 [facility] [place] mg/dL [facility] [...] Organization Address City/State/ZIP Code Phon e Number [address] POCT Glucose (08/06/2017 7:56 PM EST) P athologist Signature POC Glucose 178 65 - 199 [facility] mg/dL [facility] [...] Organization Address City/State/ZIP Code Phon e Number [address] TcPO2 (08/06/2017 2:32 PM EST) Component Value Ref Test Analysis Performed At Patholo gist Range Method Time Signature VB Text Department: Vascular Surgery Lab VASCUBASE Report Patient: [id number] (GREGORY HOANG) CPT: 1058339 ICD10: I99.8 Referring Physician: YONATHAN SMITH ?? [...] documented in this encounter Care Teams Furnace Stock Inspector Relationship Specialty Start Date End Date Lovely Vicente MD PCP - General 04/16/[address] [place] [address] documented as of this encounter
--- OUTSIDE RECORDS SUMMARY | 2022-04-17 08:24 | XMS_ITS | Encounter Summary ---
:1945 Author Organization [facility] [place] [address] Care Team Providers Name Role Phone Lovely Vicente MD Primary Care Provider Reason for Visit Auth/Cert Specialty Diagnoses / Procedures Referred By Contact Refer red To Contact Diagnoses Critical lower limb ischemia CELLULITIS RT FOOT Procedures EMERGENCY Referral ID Status Reason Start Date Expiration Date Visits Requ ested Visits Authorized [id number] 1 1 Encounter Details Date Type Department Care Team Description 08/06/2017 Clinical Support Same Day at [facility] Ischemia of foot [facility] [place] [address] Social History Tobacco Use Types Packs/Day [...] noother symptoms except severe right foot pain. [facility] called as pt on route there [...] Zulma Dolan MD [facility] [address] [place], [place] [address] (Wo rk) 05/28/2022 Laboratory Appointment Lab 05/28/2022 Office Visit Cardiology Zulma Dolan MD [facility] [place] [address] Liz Poole PA [facility] [place] [address] 06/10/2022 Office Visit Dermatology Laura Scherer MD [facility] [address], [place] [address] (Wo rk) documented as of [...] 444 ms MUSE SYSTEM (Bezet) Calculated P [place] 44 degrees MUSE SYSTEM Calculated R [place] -31 degrees MUSE SYSTEM Calculated T [place] 106 degrees MUSE SYSTEM INTERPRETATION Normal sinus [...] documented in this encounter Care Teams Cylinder Checker Relationship Specialty Start Date End Date Lovely Vicente MD PCP - General 04/16/[address] [place] [address] documented as of this encounter
--- OUTSIDE RECORDS SUMMARY | 2022-04-17 08:24 | XMS_ITS | Encounter Summary ---
:1945 Author Organization [facility] [place] [address] Care Team Providers Name Role Phone Lovely Vicente MD Primary Care Provider Encounter Details Date Type Department Care Team Description 08/09/2017 Clinical Support Same Day at [facility] Canceled (D-SCHED ERROR [facility] / CORRECT ION ) [place] [address] Social History Tobacco Use Types Packs/Day [...] [facility] [address] [place], [place] [address] (Wo rk) 05/28/2022 Laboratory Appointment Lab 05/28/2022 Office Visit Cardiology Zulma Dolan MD [facility] [place] [address] Liz Poole PA [facility] [place] [address] 06/10/2022 Office Visit Dermatology Laura Scherer MD [facility] [address], [place] [address] (Wo rk) documented as of this encounter Procedures Procedure Name Priority Date/Time Associated Diagnosis Comme nts MOUTHPIECE MAKER 08/09/2017 12:00 AM Resul ts for this SCAN EST procedure are i n the results section. documented in this encounter Results SCAN DOC: MOUTHPIECE MAKER (08/09/2017 12:00 AM EST) Narrative 08/09/2017 12:00 AM EST This result has an attachment that is no t available. Ordered by an unspecified provider. Scanning Provider MEDIA MGR SCAN EXT ORDR/RSLT documented in this encounter Visit Diagnoses Not on filedocumented in this encounter Care Teams Head Of Marketing Adometry Relationship Specialty Start Date End Date Lovely Vicente MD PCP - General 04/16/[address] [place] [address] documented as of this encounter
--- OUTSIDE RECORDS SUMMARY | 2022-04-17 08:25 | XMS_ITS | Encounter Summary ---
:1945 Author Organization [facility] [place] [address] Care Team Providers Name Role Phone Lovely Vicente MD Primary Care Provider Reason for Visit Auth/Cert Specialty Diagnoses / Procedures Referred By Contact Refer red To Contact Diagnoses Critical lower limb ischemia CELLULITIS RT FOOT Procedures EMERGENCY Referral ID Status Reason Start Date Expiration Date Visits Requ ested Visits Authorized [id number] 1 1 Encounter Details Date Type Department Care Team Description 08/04/2017 Laboratory Appointment Lab 3L [facility] [place] [address] Social History Tobacco Use Types Packs/Day [...] [facility] er [address] [place] 0[address] (Wo rk) 05/28/2022 Laboratory Appointment Lab 05/28/2022 Office Visit Cardiology Zulma Dolan MD [facility] [place] [address] Liz Poole PA [facility] [place] [address] 06/10/2022 Office Visit Dermatology Laura Scherer MD [facility] DR TEJA RG-DERMAT [place], [place] [address] (Wo rk) documented as of this encounter Visit Diagnoses Not on filedocumented in this encounter Care Teams Sorting Machine Operator Relationship Specialty Start Date End Date Lovely Vicente MD PCP - General 04/16/15 [facility] [address] [place], [place] [address] documented as of this encounter
--- OUTSIDE RECORDS SUMMARY | 2022-04-17 08:25 | XMS_ITS | Encounter Summary ---
:1945 [place] [address] Care Team Providers Name Role Phone Lovely Vicente MD Primary Care Provider Encounter Details Date Type Department Care Team Description 08/05/2017 Notes Only Vascular Surgery at [facility] Eden Moss, STACIE [facility] [place] [address] VASCULAR SURGERY [phone] [place], [place] [address] (Wo rk) Social History Tobacco [...] Dolan MD [facility] [place], [place] [address] (Wo rk) 05/28/2022 Laboratory Appointment Lab 05/28/2022 Office Visit Cardiology Zulma Dolan MD [facility] [place] [address] Liz Poole PA [facility] [place] [address] 06/10/2022 Office Visit Dermatology Laura Scherer MD [facility] DR TEJA GR-DERMAT [place], [place] 0[address] (Wo rk) documented as of this encounter Visit Diagnoses Not on filedocumented in this encounter Care Teams Flight Agent Relationship Specialty Start Date End Date Lovely Vicente MD PCP - General 04/16/15 [facility] [address] [place] [address] documented as of this encounter
--- OUTSIDE RECORDS SUMMARY | 2022-04-17 08:25 | XMS_ITS | Encounter Summary ---
:1945 Author Organization [facility] [place] [address] Care Team Providers Name Role Phone Lovely Vicente MD Primary Care Provider Reason for Visit Reason Comments Follow-up Encounter Details Date Type Department Care Team Description 07/29/2017 Office Visit Cardiac Surgery at [facility] Yuan Retana MD S/P CABG x [address] [facility] [place] [address] CARDIOTHORACIC SURGERY [phone] [place], [place] [address] (Wo rk) Social History Tobacco [...] evaluation by vascular surgery. Yuan Retana MD [phone] documented in this encounter Plan of Treatment Upcoming Encounters Date Type Specialty Care Team Description 05/28/2022 Appointment Cardiology Zulma Dolan MD [facility] er [address] [place] [address] (Wo rk) 05/28/2022 Laboratory Appointment Lab 05/28/2022 Office Visit Cardiology Zulma Dolan MD [facility] [place] [address] Liz Poole PA [facility] [place] [address] 06/10/2022 Office Visit Dermatology Laura Scherer MD [facility] ER DR [address]-DERMAT [place], [place] 0[address] (Wo rk) documented as of this encounter Visit Diagnoses Diagnosis S/P CABG x 3 Postsurgical aortocoronary bypass status documented in this encounter Care Teams Contract Associate Relationship Specialty Start Date End Date Lovely Vicente MD PCP - General 04/16/[address] [place] [address] documented as of this encounter
--- OUTSIDE RECORDS SUMMARY | 2022-04-17 08:25 | XMS_ITS | Encounter Summary ---
:1945 [place] [address] Care Team Providers Name Role Phone Lovely Vicente MD Primary Care Provider Encounter Details Date Type Department Care Team Description 08/04/2017 Notes Only Pain Management at Barbra Bruno, STACIE [facility] [place] [address] [place] [address] [phone] (Wo rk) Social History Tobacco Use Types [...] bid) at this time. Barbra Soares, MSN, VARNISH FINISHER-BC, [facility] documented in this encounter Plan of Treatment Upcoming Encounters Date Type Specialty Care Team Description 05/28/2022 Appointment Cardiology Zulma Dolan MD [facility] [address] [place], [place] [address] (Wo rk) 05/28/2022 Laboratory Appointment Lab 05/28/2022 Office Visit Cardiology Zulma Dolan MD [facility] [place] [address] Liz Poole PA [facility] [place] [address] 06/10/2022 Office Visit Dermatology Laura Scherer MD [facility] DR [address]-DERMAT [place], [place] [address] (Wo rk) documented as of this encounter Visit Diagnoses Not on filedocumented in this encounter Care Teams Bedspread Folder Relationship Specialty Start Date End Date Lovely Vicente MD PCP - General 04/16/[address] [place] [address] documented as of this encounter
--- OUTSIDE RECORDS SUMMARY | 2022-04-17 08:25 | XMS_ITS | Encounter Summary ---
:1945 Author Organization [facility] [place] [address] Care Team Providers Name Role Phone Lovely Vicente MD Primary Care Provider Encounter Details Date Type Department Care Team Description 08/04/2017 Orders Only Cardiac Surgery Makayla Wilson APRN [facility] [place] [address] CARDIAC SURGERY [phone] [place], [place] [address] (Wo rk) Social History Tobacco [...] Dolan MD [facility] er [place], [place] [address] (Wo rk) 05/28/2022 Laboratory Appointment Lab 05/28/2022 Office Visit Cardiology Zulma Dolan MD [facility] [place] [address] Liz Poole PA [facility] [place] [address] 06/10/2022 Office Visit Dermatology Laura Scherer MD [facility] ER DR TEJA GR-DERMAT [place], [place] [address] (Wo rk) documented as of this encounter Visit Diagnoses Not on filedocumented in this encounter Care Teams Wheel Adjuster Relationship Specialty Start Date End Date Lovely Vicente MD PCP - General 04/16/[address] [place] [address] documented as of this encounter
--- OUTSIDE RECORDS SUMMARY | 2022-04-17 08:25 | XMS_ITS | Encounter Summary ---
:1945 [place] [address] Care Team Providers Name Role Phone Lovely Vicente MD Primary Care Provider Encounter Details Date Type Department Care Team Description 08/04/2017 Notes Only Cardiac Surgery Makayla Wilson TIPPLE WORKER [facility] [place] [address] CARDIAC SURGERY [phone] [place], [place] [address] (Wo rk) Social History Tobacco [...] Zulma Dolan MD [facility] [address] [place], [place] [address] (Wo rk) 05/28/2022 Laboratory Appointment Lab 05/28/2022 Office Visit Cardiology Zulma Dolan MD [facility] [place] [address] [facility] [place] [address] 06/10/2022 Office Visit Dermatology Laura Scherer MD [facility] DR TEJA GR-DERMAT [facility] [place], [place] [address] (Wo rk) documented as of this encounter Visit Diagnoses Not on filedocumented in this encounter Care Teams Bander And Cellophaner Machine Helper Relationship Specialty Start Date End Date Lovely Vicente MD PCP - General 04/16/[address] [place] [address] documented as of this encounter
--- OUTSIDE RECORDS SUMMARY | 2022-04-17 08:25 | XMS_ITS | Encounter Summary ---
:1945 Author Organization [facility] [address] Care Team Providers Name Role Phone Lovely Vicente MD Primary Care Provider Encounter Details Date Type Department Care Team Description 08/03/2017 Telephone Pain Management at Angeles [place]eno, [place] [address] Social History Tobacco Use Types Packs/Day [...] Management Center Preauthorization Request Patient: Don Fatima [id number] Fax received from [email or web address] requesting we obtain prior authorization for Lidocaine Patches prescribed by Barbra Soares APRN. RX insurance plan: [email or web address] insurance telephone: [phone] Patient ?? Diagnosis: right foot pain secondary to PVD and ischemia ?? Previous medications attempted: Tylenol, Tramadol, Dilaudid Authorization/Reference number: [id number], PBP Code 801 _x_ denied, provider and patient informed _x_ appeal initiated by provider, patient informed Angeles Rodrigez, RN documented in this encounter Plan of Treatment Upcoming Encounters Date Type Specialty Care Team Description 05/28/2022 Appointment Cardiology Zulma Dolan MD [facility] [place], [place] 0[address] (Wo rk) 05/28/2022 Laboratory Appointment Lab 05/28/2022 Office Visit Cardiology Zulma Dolan MD [facility] [place] [address] Liz Poole PA [facility] [place] [address] 06/10/2022 Office Visit Dermatology Laura Scherer MD [facility] DR [address]DERMAT [place], [place] 0[address] (Wo rk) documented as of this encounter Visit Diagnoses Not on filedocumented in this encounter Care Teams Inside Barrel Polisher Relationship Specialty Start Date End Date Lovely Vicente MD PCP - General 04/16/[address] [place] [address] documented as of this encounter
--- OUTSIDE RECORDS SUMMARY | 2022-04-17 08:25 | XMS_ITS | Encounter Summary ---
:1945 [place] [address] Care Team Providers Name Role Phone Lovely Vicente MD Primary Care Provider Encounter Details Date Type Department Care Team Description 08/03/2017 Hospital Encounter Radiology Library at [place], Tommy Mijares [facility] [place] [address] VASCULAR SURGERY [phone] [place], [place] [address] (Wo rk) Social History Tobacco [...] Zulma Dolan MD [facility] [address] [place], [place] [address] (Wo rk) 05/28/2022 Laboratory Appointment Lab 05/28/2022 Office Visit Cardiology Zulma Dolan MD [facility] [place] [address] Liz Poole PA [facility] [place] [address] 06/10/2022 Office Visit Dermatology Laura Scherer MD [facility] DR TEJA GR-DERMAT [place], [place] [address] (Wo rk) documented as of [...] Received Time / Laterality Volume Narrative [facility] - 08/03/2017 6:01 PM EST This exam is for storage only and is aut o-finalizing. Arik Clement MD G FILM LIBRARY ORDERABLES Performing Organization Address City/State/ZIP Code Phon e Number [place], [place] documented in this encounter Visit Diagnoses Diagnosis Pain Generalized pain documented in this encounter Care Teams Electro Optical Engineer Relationship Specialty Start Date End Date Lovely Vicente MD PCP - General 04/16/[address] [place] [address] documented as of this encounter
--- OUTSIDE RECORDS SUMMARY | 2022-04-17 08:25 | XMS_ITS | Encounter Summary ---
:1945 Author Organization [facility] [place] [address] Care Team Providers Name Role Phone Lovely Vicente MD Primary Care Provider Encounter Details Date Type Department Care Team Description 07/29/2017 Transcribe Orders Laboratory Lovely Vicente MD [address] [address] [place] [address] [phone] (Wo rk) Social History Tobacco Use Types [...] [facility] er [address] [place] [address] (Wo rk) 05/28/2022 Laboratory Appointment Lab 05/28/2022 Office Visit Cardiology Zulma Dolan MD [facility] [place] [address] Liz Poole PA [facility] [place] [address] 06/10/2022 Office Visit Dermatology Laura Scherer MD [facility] ER DR TEJA GR-DERMAT [place], [place] [address] (Wo rk) documented as of this encounter Visit Diagnoses Not on filedocumented in this encounter Care Teams Resawyer Relationship Specialty Start Date End Date Lovely Vicente MD PCP - General 04/16/[address] [place] [address] documented as of this encounter
--- OUTSIDE RECORDS SUMMARY | 2022-04-17 08:25 | XMS_ITS | Encounter Summary ---
:1945 Author Organization [facility] [place] [address] Care Team Providers Name Role Phone Lovely Vicente MD Primary Care Provider Reason for Visit Auth/Cert Specialty Diagnoses / Procedures Referred By Contact Refer red To Contact Diagnoses Critical lower limb ischemia CELLULITIS RT FOOT Procedures EMERGENCY Referral ID Status Reason Start Date Expiration Date Visits Requ ested Visits Authorized [id number] 1 1 Encounter Details Date Type Department Care Team Description 08/04/2017 [facility] Barbara [place] thrombosis of [facility] [place] [address] Social History Tobacco Use Types Packs/Day Years [...] Cardiology Zulma Dolan MD [facility] [place], [place] [address] (Wo rk) 05/28/2022 Laboratory Appointment Lab 05/28/2022 Office Visit Cardiology Zulma Dolan [place] [address] Liz Poole PA [facility] [place] [address] 06/10/2022 Office Visit Dermatology Laura Scherer MD [facility] DR TEJA GR-DERMAT [place], [place] [address] (Wo rk) documented as of [...] Test Analysis Performed At [facility] Range Method Time Signature VB Text Department: Vascular Surgery Lab VASCUBASE Report Patient: [id number] (DON HOANG) CPT: 05707 ICD10: I82.541 Referring Physician: MEÑO HUTSON ?? [...] extremity documented in this encounter Care Teams Stock Sheets Cleaner Inspector Relationship Specialty Start Date End Date Lovely Vicente MD PCP - General 04/16/[address] [place] [address] documented as of this encounter
--- OUTSIDE RECORDS SUMMARY | 2022-04-17 08:25 | XMS_ITS | Encounter Summary ---
:1945 Author Organization [facility] Address [facility] [place] [address] Care Team Providers Name Role Phone Lovely Vicente MD Primary Care Provider Encounter Details Date Type Department Care Team Description 07/29/2017 Transcribe Orders Laboratory Lovely Vicente, Coronary artery rupture; [facility] Medical Ischemic cardiomyopathy; [facility] [address] Atherosclerosis of [place] co ronary artery, angina presence unspecified, unspecified whether [place] or transplanted heart; [place], [place] [address] Essential hypertension, malignant; [address] [place], [place] 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, unspecified usp insulin use status [phone] [id number] Social History Tobacco Use Types Packs/Day Years [...] Dolan MD [facility] er [place], [place] [address] (Wo rk) 05/28/2022 Laboratory Appointment Lab 05/28/2022 Office Visit Cardiology Zulma Dolan MD [facility] [place] [address] Liz Poole PA [facility] [place] [address] 06/10/2022 Office Visit Dermatology Laura Scherer MD [facility] ER [address]-DERMAT [place], [place] [address] (Wo rk) Scheduled Orders Name Type Priority Associated Diagnoses Order S chedule Lab Use Only, Fax Lab Routine Coronary arter y rupture Expected: 07/29/2017 Request Ischemic cardiom yopathy (Approximate), Atherosclerosis of [place] Ex jose: 07/29/2018 coronary artery, angina presence unspecified, unspecified whether [place] or transplanted heart Essential hypertension, malignant documented as of this encounter Results Uric acid (08/04/2017 12:55 PM EST) P athologist Signature Uric Acid 7.1 3.5 - 8.5 [facility] mg/dL [facility] Specimen Anatomical Collection Method Collection Time Receive d Time (Source) Location / / Volume Laterality Blood specimen 08/04/2017 12:55 8 1:01 (specimen) PM EST PM EST Resulting Agency Comment Spec In Lab Lovely Vicente MD CHEMISTRY ORDERABLES Performing Organization Address City/State/[place] [address] (ABNORMAL) Hemogram (08/04/2017 12:55 PM EST) Analysis Performed At Patho logist Time Signature WBC 15.8 (H) 4.0 - 9.5 [facility] x10(3)/[facility] LABORATORY RBC 3.48 (L) 4.58 [facility]54 [facility] x10(6)/[facility] LABORATORY Hemoglobin 9.9 (L) 13.7 - [facility] 16.5 gm/dL [facility] Hematocrit 31.4 (L) 40.5 - K[facility]ALINA DAVIS 48.5 % [facility] MCV 90.2 82.9 - [facility] 93.1 [facility] LABORATORY MCH 28.4 27.5 - [place]ALINA RYAN 32.1 pg [facility] MCHC 31.5 (L) 32.0 - [place] ZHAORYAN 35.7 gm/dL [facility] Platelets 310 145 - 357 [facility] x10(3)/[facility] LABORATORY RDWSD 51.8 (H) 36.0 - [place] RYAN 45.0 [facility] LABORATORY RDWCV 15.8 (H) 11.4 - [facility] 13.8 % [facility] MPV 8.9 7.6 - 12.9 [facility] LABORATORY nRBC % Auto 0.0 % [facility] nRBC Abs Auto 0.000 0.000 - [facility] 0.000 [facility] x10(3)/[facility] LABORATORY Specimen Anatomical Collection Method Collection Time Receive d Time (Source) Location / / Volume Laterality Blood specimen 08/04/2017 12:55 8 1:01 (specimen) PM EST PM EST Resulting Agency Comment Spec In Lab Lovely Vicente MD HEMATOLOGY ORDERABLES Performing Organization Address City/State/ZIP Code Phon e Number [place] [id number] (ABNORMAL) Comprehensive metabolic panel (non-fasting) (08/04/2017 12:55 PM EST) P athologist Signature Glucose Lvl 208 (H) 65 - 199 [facility] mg/dL [facility] Comment: [...] Total Protein 6.9 6.1 - 8.0 gm/dL [facility] Albumin 3.4 3.2 [...] or in patients with acute kidney failure. [email or web address] Specimen Anatomical Collection Method Collection Time Receive d Time (Source) Location / / Volume Laterality Blood specimen 08/04/2017 12:55 8 1:01 (specimen) PM EST PM EST Resulting Agency Comment Spec In Lab Lovely Vicente MD CHEMISTRY ORDERABLES Performing Organization Address City/State/[place] [address] (ABNORMAL) Hemoglobin A1c (08/04/2017 12:55 PM EST) Analysis Performed At Patho logist Time Signature Hemoglobin A1C 6.2 (H) 4.3 - 5.6 [facility] [...] Avg Gluc See note mg/dL KATALINA DAVIS [facility] Comment: Estimated Average Glucose [...] with hemoglobinopathies. Additional resources are available on [facility] ADA website. Macario HAMMOND, Ruthann J, Deysi R, et al. ??Tr anslating the A1C assay into estimated average glucose values. ??Diabetes Care 2008:31(8):9684-0628. Specimen Anatomical Collection Method Collection Time Receive d Time (Source) Location / / Volume Laterality Blood specimen 08/04/2017 12:55 8 1:01 (specimen) PM EST PM EST Resulting Agency Comment Spec In Lab oLvely Vicente MD CHEMISTRY ORDERABLES Performing Organization Address City/State/[place] [address] (ABNORMAL) Prothrombin Time (08/04/2017 [...] Organization Address City/State/[place] [address] documented in this encounter Visit Diagnoses Diagnosis Coronary artery rupture Acute myocardial infarction, unspecified site, episode of care unspecified Ischemic cardiomyopathy Other specified forms of chronic ischemi c heart disease Atherosclerosis of [place] coronary arter y, angina presence unspecified, unspecified whether [place] or transplanted heart Essential hypertension, malignant Diabetes mellitus due to underlying cond ition with diabetic nephropathy, unspecified usp insulin use status documented in this encounter Care Teams Coat Ironer Hand Relationship Specialty Start Date End Date Lovely Vicente MD PCP - General 04/16/[address] [place] [address] documented as of this encounter
--- OUTSIDE RECORDS SUMMARY | 2022-04-17 08:25 | XMS_ITS | Encounter Summary ---
:1945 [place] [address] Care Team Providers Name Role Phone Lovely Vicente MD Primary Care Provider Encounter Details Date Type Department Care Team Description 08/03/2017 Hospital Encounter Radiology Library at [place], Tommy Mijares [facility] [place] [address] VASCULAR SURGERY [phone] [place], [place] [address] (Wo rk) Social History Tobacco [...] Dolan MD [facility] [place], [place] [address] (Wo rk) 05/28/2022 Laboratory Appointment Lab 05/28/2022 Office Visit Cardiology Zulma Dolan MD [facility] [place] [address] Liz Poole PA [facility] [place] [address] 06/10/2022 Office Visit Dermatology Laura Scherer MD [facility] DR [address]DERMAT OLOGY [place], [place] [address] (Wo rk) documented as of [...] Received Time / Laterality Volume Narrative [facility] - 08/03/2017 6:03 PM EST This exam is for storage only and is aut o-finalizing. Arik Clement MD G FILM LIBRARY ORDERABLES Performing Organization Address City/State/ZIP Code Phon e Number [place], [place] documented in this encounter Visit Diagnoses Diagnosis Pain Generalized pain documented in this encounter Care Teams Fuel Oil Clerk Relationship Specialty Start Date End Date Lovely Vicente MD PCP - General 04/16/[address] [place] [address] documented as of this encounter
--- OUTSIDE RECORDS SUMMARY | 2022-04-17 08:25 | XMS_ITS | Encounter Summary ---
:1945 [place] [address] Care Team Providers Name Role Phone Lovely Vicente MD Primary Care Provider Encounter Details Date Type Department Care Team Description 07/29/2017 Hospital Encounter Vascular Lab at Critic monica Huber lower limb [facility] [place] [phone] Social History Tobacco Use Types Packs/Day Years [...] Zulma Dolan MD [facility] [place], [place] [address] (Wo rk) 05/28/2022 Laboratory Appointment Lab 05/28/2022 Office Visit Cardiology Zulma Dolan MD [facility] [place] [address] Liz Poole PA [facility] [place] [address] 06/10/2022 Office Visit Dermatology Laura Scherer MD [facility] DR [address]-DERMAT [place], [place] [address] (Wo rk) documented as of this encounter Visit Diagnoses Diagnosis Critical lower limb ischemia Unspecified circulatory system disorder documented in this encounter Care Teams Meat Grading Machine Operator Relationship Specialty Start Date End Date Lovely Vicente MD PCP - General 04/16/[address] [place] [address] documented as of this encounter
--- OUTSIDE RECORDS SUMMARY | 2022-04-17 08:25 | XMS_ITS | Encounter Summary ---
:1945 Author Organization [facility] [place] [address] Care Team Providers Name Role Phone Lovely Vicente MD Primary Care Provider Reason for Visit Auth/Cert Specialty Diagnoses / Procedures Referred By Contact Refer red To Contact Diagnoses Critical lower limb ischemia CELLULITIS RT FOOT Procedures EMERGENCY Referral ID Status Reason Start Date Expiration Date Visits Requ ested Visits Authorized [id number] 1 1 Encounter Details Date Type Department Care Team Description 08/04/2017 Office Visit Cardiology at [facility] Danette Maxwell Incisional pain; [facility] A, [employer] Ischemic cardiomyopathy; [facility] ASCVD (arteriosclerotic card iovascular disease); [place], [place] Systolic heart failure, unspecified hear t failure chronicity [id number] CARDIOLOGY [phone] [place], [place] [address] Social History Tobacco Use [...] in this encounter Progress Notes Danette Maxwell, [employer] - 08/04/2017 3:00 PM EST ID and [...] 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 [...] ?? Heart Failure Management: Yes/No No?/Discontinued/Why Beta chdawick Yes Metoprolol tartrate 25 mg bid KIRSTIN/ARB [...] Cardiology Zulma Dolan MD [facility] [address] [place], [place] [address] (Wo rk) 05/28/2022 Laboratory Appointment Lab 05/28/2022 Office Visit Cardiology Zulma Dolan MD [facility] [place] [address] Liz Poole PA [facility] [place] [address] 06/10/2022 Office Visit Dermatology Laura Scherer MD [facility] DR TE[address]DERMAT [place], [place] [address] [...] documented in this encounter Care Teams Director College Relationship Specialty Start Date End Date Lovely Vicente MD PCP - General 04/16/[address] [place] [address] documented as of this encounter
--- OUTSIDE RECORDS SUMMARY | 2022-04-17 08:25 | XMS_ITS | Encounter Summary ---
:1945 Author Organization [facility] [place] [address] Care Team Providers Name Role Phone Lovely Vicente MD Primary Care Provider Encounter Details Date Type Department Care Team Description 07/24/2017 Telephone Vascular Surgery Melba Bob [facility] [place] [address] [facility] [phone] VASCULAR SURGERY [place], [place] [address] (Wo rk) Social [...] Dolan MD [facility] [address] [place] [address] (Wo rk) 05/28/2022 Laboratory Appointment Lab 05/28/2022 Office Visit Cardiology Zulma Dolan MD [facility] [place] [address] Liz Poole PA [facility] [place] [address] 06/10/2022 Office Visit Dermatology Laura Scherer MD [facility] DR TEJA [address]DERMAT [place], [place] [address] (Wo rk) documented as of this encounter Visit Diagnoses Not on filedocumented in this encounter Care Teams Poultry And Fish Butcher Relationship Specialty Start Date End Date Lovely Vicente MD PCP - General 04/16/[address] [place] [address] documented as of this encounter
--- OUTSIDE RECORDS SUMMARY | 2022-04-17 08:25 | XMS_ITS | Encounter Summary ---
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 Patient [...] SETUP performed by Manny Mcknight MD at [facility] MAIN OR ??? PRO CABG, ARTERIAL, SINGLE N/A 07/07/2017 @CABG, USING ARTERIAL GRAFT;SINGLE ARTERIAL GRAFT (WRVU 33.75) performed by Yuan Retana MD at [facility] MAIN OR ??? PRO CABG, ARTERY-VEIN, TWO N/A 07/07/2017 @CABG, TWO VENOUS GRAFTS & ARTERIAL GRAFT (WRVU 7.93) performed by Yuan Retana MD at [facility] MAIN OR ??? PRO COLONOSCOPY, REMFlash MOCK, SNARE 01/16/2014 COLONOSCOPY, POLYPECTOMY, REMOVAL LESION BY SNARE performed by Nohemi Jaimes MD at [facility] ENDOSCOPY ??? PRO ENDOSCOPY W/VIDEO-ASST VEIN HARVEST, CABG Right 07/07/2017 ENDOSCOPIC HARVEST VEIN(S) FOR CABG (WRVU 0.31) performed by Yuan Retana MD at [facility] MAIN OR ??? 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 Hank Zhang Vascular Surgery, PGY2 Pager #[phone] Associated attestation - Arik Clement MD - 08/09/2017 7:19 AM EST I have examined and interviewed patient, Agree with above note and plan. Pt with severe pain from embolization to toes. We discussed options of pain mngt vs amputation of toes. AT present pt wishes to continue conservative measures. Will follow ED Triage - Marei Lynne RN - 07/29/2017 10:48 AM EST Pt c/o right leg and foot pain and swelling x 3 weeks s/p cardiac cath. Bruising on right foot. Redness on posterior side of calf. Pt reports intermittent numbness/tingling in toes. documented in this encounter Plan of Treatment Upcoming Encounters Date Type Specialty Care Team Description 05/28/2022 Appointment Cardiology Zulma Dolan MD [facility] [place], [place] [address] (Wo rk) 05/28/2022 Laboratory Appointment Lab 05/28/2022 Office Visit Cardiology Zulma Dolan MD [facility] [place] [address] Liz Poole PA [facility] [place] [address] 06/10/2022 Office Visit Dermatology Laura Scherer MD [facility] [address] TEJA GR-DERMAT [place], [place] [address] (Wo rk) documented as of [...] Department: Vascular Surgery Lab VASCUBASE Report Patient: [id number] (GREGORY FATIMA) CPT: 43201 ICD10: I82.541 Referring [...] - 199 [facility] mg/dL [facility] LABORATORY Comment: Supplemental ranges: <140 mg/dL before meals <180 mg/dL all other times of the day Specimen Anatomical Collection Method Collection Time Receive d Time (Source) Location / / Volume Laterality Blood specimen 07/29/2017 2:28 PM 018 2:28 (specimen) EST PM EST Tamiko Jiménez MD POINT OF CARE TEST ORDERABLE S Performing Organization Address City/State/ZIP Code Phon e Number [address] (ABNORMAL) D-Dimer, Quantitative (07/29/2017 2:15 PM EST) [facility] 1-800-DENTIST Method Time Signature D-Dimer, Quant 1,699 (H) 0 - 500 [facility] FEU ng/ml [facility] LABORATORY Comment: The D-Dimer assay is [...] Organization Address City/State/[place] [address] (ABNORMAL) Differential, Automated (07/29/2017 2:15 PM EST) [facility] 1-800-DENTIST Method Time Signature Neutrophils % 82.5 % [facility] LABORATORY Neutr Abs (ANC) 10.21 (H) 1.70 - [facility] 6.10 [facility] x10(3)/[facility] L LABORATORY Lymphocytes % 7.1 % [facility] LABORATORY Lymphocytes Abs 0.9 0.9 - 3.2 [facility] x10(3)/[facility] LABORATORY Monocytes % 6.5 % [facility] LABORATORY Monocyte Abs 0.8 0.3 - 0.9 [facility] x10(3)/[facility] LABORATORY Eosinophils % 2.7 % [facility] LABORATORY Eosinophils Abs 0.3 0.0 - 0.4 [facility] x10(3)/[facility] LABORATORY Basophils % 0.6 % [facility] LABORATORY Basophils Abs 0.1 0.0 - 0.1 [facility] x10(3)/[facility] LABORATORY Immature Gran % [...] Address City/State/[place] [address] (ABNORMAL) Hemogram (07/29/2017 2:15 PM EST) Analysis Performed At Patho logist Time Signature WBC 12.4 (H) 4.0 - 9.5 [facility] x10(3)/[facility] LABORATORY RBC 4.17 (L) 4.58 - [facility] 5.54 [facility] x10(6)/[facility] LABORATORY Hemoglobin 12.1 (L) 13.7 - [facility] 16.5 gm/dL [facility] LABORATORY Hematocrit 38.1 (L) 40.5 - [facility] 48.5 % [facility] LABORATORY MCV 91.4 82.9 - [facility] 93.[facility] LABORATORY MCH 29.0 27.5 - [facility] 32.1 pg [facility] LABORATORY MCHC 31.8 (L) 32.0 - [facility] RY[facility] 35.7 gm/dL [facility] LABORATORY Platelets 204 145 - 357 [facility] x10(3)/[facility] LABORATORY RDWSD 50.5 (H) 36.0 - [facility] 45.0 [facility] LABORATORY RDWCV 15.3 (H) 11.4 - [facility] 13.8 % [facility] LABORATORY MPV 9.4 7.6 - 12.9 [facility] LABORATORY nRBC % Auto 0.0 % [facility] LABORATORY nRBC Abs Auto 0.000 0.000 - [facility] 0.000 [facility] x10(3)/[facility] LABORATORY Specimen Anatomical Collection Method Collection Time Receive d Time (Source) Location / / Volume Laterality Blood specimen 07/29/2017 2:15 PM 018 2:36 (specimen) EST PM EST Resulting Agency Comment Spec In Lab Tamiko Jiménez MD HEMATOLOGY ORDERABLES Performing Organization Address City/State/[place] [address] (ABNORMAL) Prothrombin Time (07/29/2017 2:15 PM EST) P athologist Signature PT 24.4 (H) 11.8 - 14.0 [facility] LABORATORY INR 2.2 (H) 0.9 - 1.1 [facility] [...] City/State/ZIP Code Phon e Number [place] [id number] HOSPITAL LAB[address]ORY Drive Arterial Duplex Leg, Unil (07/29/2017 11:50 AM EST) Component Value Ref Test Analysis Performed At [facility] Range Method Time Signature VB Text Department: Vascular Surgery Lab VASCUBASE Report Patient: [id number] (GREGORY FATIMA) CPT: 06418 ICD10: Z09;I97.610 Referring Physician: TAMIKO JIMÉNEZ ?? [...] Department: Vascular Surgery Lab VASCUBASE Report Patient: [id number] (GREGORY FATIMA) CPT: 92350 ICD10: I82.441 Referring Physician: TAMIKO JIMÉNEZ ?? [...] he calf. Notification: Marquis Pathak MD (pager #[phone]) was notif ied of the preliminary findings. [...] documented in this encounter Care Teams Sales Planning Manager Relationship Specialty Start Date End Date Lovely Vicente MD PCP - General 04/16/[address] [place] [address] [address] [place] [address] documented as of this encounter
--- OUTSIDE RECORDS SUMMARY | 2022-04-17 08:25 | XMS_ITS | Encounter Summary ---
:1945 Author Organization [place] [address] Care Team Providers Name Role Phone Lovely Vicente MD Primary Care Provider Encounter Details Date Type Department Care Team Description 08/04/2017 Orders Only Cardiac Surgery Makayla Wilson APRN [facility] [place] [address] CARDIAC SURGERY [phone] [place], [place] [address] (Wo rk) Social History Tobacco [...] MD [facility] er [place], [place] [address] (Wo rk) 05/28/2022 Laboratory Appointment Lab 05/28/2022 Office Visit Cardiology Zulma Dolan MD [facility] [place] [address] Liz Poole PA [facility] [place] [address] 06/10/2022 Office Visit Dermatology Laura Scherer MD [facility] ER DR TEJA [address]DERMAT [place], [place] [address] (Wo rk) documented as of this encounter Visit Diagnoses Not on filedocumented in this encounter Care Teams Film Or Videotape Editor Relationship Specialty Start Date End Date Lovely Vicente MD PCP - General 04/16/[address] [place] [address] documented as of this encounter
--- OUTSIDE RECORDS SUMMARY | 2022-04-17 08:25 | XMS_ITS | Encounter Summary ---
:1945 Author Organization [facility] [address] Care Team Providers Name Role Phone Lovely Vicente MD Primary Care Provider Reason for Visit Reason Comments Pain Management Ankle Pain Toe Pain Encounter Details Date Type Department Care Team Description 07/30/2017 Office Visit Pain Management at [facility] So[facility], Per ipheral neuropathy Clinch JANITOR CARETAKER due to ischemia [facility] [address] [place], [place], [place] [phone] Social History Tobacco Use Types Packs/Day Years [...] Soares APRN - 07/30/2017 1:45 PM EST [facility] [place] [address] Phone: PAIN MANAGEMENT NEW PATIENT / CONSULTATION NOTE DATE OF VISIT 07/30/2017 Patient Don Fatima 1945 REFERRING PROVIDER Lovely Vicente MD [address] [place] [address] PRIMARY CARE PROVIDER Lovely Vicente MD CHIEF [...] PAST THERAPIES: Nothing MEDICATIONS The [place] Prescription Monitoring Program was checked [...] SETUP performed by Manny Mcknight MD at [facility] OR ??? PRO CABG, ARTERIAL, SINGLE N/A 07/07/2017 @CABG, USING ARTERIAL GRAFT;SINGLE ARTERIAL GRAFT (WRVU 33.75) performed by Yuan Retana MD at [facility] OR ??? PRO CABG, ARTERY-VEIN, TWO N/A 07/07/2017 @CABG, TWO VENOUS GRAFTS & ARTERIAL GRAFT (WRVU 7.93) performed by Yuan Retana MD at [facility] OR ??? PRO COLONOSCOPY, REMV LESN, SNARE 01/16/2014 COLONOSCOPY, POLYPECTOMY, REMOVAL LESION BY SNARE performed by Nohemi Jaimes MD at [facility] ENDOSCOPY ??? PRO ENDOSCOPY W/VIDEO-ASST VEIN HARVEST, CABG Right 07/07/2017 ENDOSCOPIC HARVEST VEIN(S) FOR CABG (WRVU 0.31) performed by Yuan Retana MD at [facility] OR ??? PRO THYROIDECTOMY 03/28/2013 THYROIDECTOMY, [...] referral, Lovely Vicente MD [phone] [place] [address]. [facility] Soares, MSN, MEDICATION NURSE-BC, JANITOR CARETAKER Nurse Practitioner Pain Management Center documented in this encounter Plan of Treatment Upcoming Encounters Date Type Specialty Care Team Description 05/28/2022 Appointment Cardiology Zulma Dolan MD [facility] [place], [place] [address] (Wo rk) 05/28/2022 Laboratory Appointment Lab 05/28/2022 Office Visit Cardiology Zulma Dolan MD [facility] [place] [address] Liz Poole PA [facility] [place] [address] 06/10/2022 Office Visit Dermatology Laura Scherer MD [facility] DR [address]JA [address] [place], [place] [address] (Wo rk) documented as of this encounter Visit Diagnoses Diagnosis 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
--- OUTSIDE RECORDS SUMMARY | 2022-04-17 08:25 | XMS_ITS | Encounter Summary ---
:1945 Author Organization [facility] [place] [address] Care Team Providers Name Role Phone Lovely Vicente MD Primary Care Provider Reason for Visit Reason Comments Deep Vein Thrombosis Auth/Cert Specialty Diagnoses / Procedures Referred By Contact Refer red To Contact Diagnoses Critical lower limb ischemia CELLULITIS RT FOOT Procedures EMERGENCY Referral ID Status Reason Start Date Expiration Date Visits Requ ested Visits Authorized [id number] 1 1 Encounter Details Date Type Department Care Team Description 08/04/2017 Office Visit Vascular Surgery at [facility] Cr itical lower limb [facility] ischemia [facility] [address] [place], [place] VASCULAR SURGERY [id number] [place] [address] [phone] Social History Tobacco Use Types Packs/Day Years [...] was discharged on Coumadin. ??He presented to [facility] on 07/20 with mottled [...] Cardiology Zulma Dolan MD [facility] [place] [address] (Wo rk) 05/28/2022 Laboratory Appointment Lab 05/28/2022 Office Visit Cardiology Zulma Dolan MD [facility] [place] [address] Liz Poole PA [facility] [place] [address] 06/10/2022 Office Visit Dermatology Laura Scherer MD [facility] ER DR TEJA GR[address]DERMAT [place], [place] [address] (Wo rk) documented as of this encounter Visit Diagnoses Diagnosis Critical lower limb ischemia Unspecified circulatory system disorder documented in this encounter Care Teams Mathematical Technician Relationship Specialty Start Date End Date Lovely Vicente MD PCP - General 04/16/[address] [facility] [address] [place], [place] [address] documented as of this encounter
--- OUTSIDE RECORDS SUMMARY | 2022-04-17 08:25 | XMS_ITS | Encounter Summary ---
:1945 [place] [address] Care Team Providers Name Role Phone Lovely Vicente MD Primary Care Provider Encounter Details Date Type Department Care Team Description 07/29/2017 Telephone Pain Aurelia Crawford MD [facility] [place] [address] PAIN CLINIC [phone] [place], [place] [address] (Wo rk) Social History Tobacco [...] [facility] [place], [place] [address] (Wo rk) 05/28/2022 Laboratory Appointment Lab 05/28/2022 Office Visit Cardiology Zulma Dolan MD [facility] [place] [address] Liz Poole PA [facility] [place] [address] 06/10/2022 Office Visit Dermatology Laura Scherer MD [facility] DR [address] [place], [place] [address] (Wo rk) documented as of this encounter Visit Diagnoses Not on filedocumented in this encounter Care Teams Cash Management Associate Relationship Specialty Start Date End Date Lovely Vicente MD PCP - General 04/16/[address] [place] [address] [address] [place] [address] documented as of this encounter
--- OUTSIDE RECORDS SUMMARY | 2022-04-17 08:25 | XMS_ITS | Encounter Summary ---
:1945 Author Organization [facility] [place] [address] Care Team Providers Name Role Phone Lovely Vicente MD Primary Care Provider Encounter Details Date Type Department Care Team Description 08/06/2017 Orders Only Vascular Surgery at [facility] Eden Moss APRN Ischemia of foot [place] [place] [address] VASCULAR SURGERY [phone] [place], [place] [address] (Wo rk) Social History Tobacco [...] MD [facility] er [place], [place] [address] (Wo rk) 05/28/2022 Laboratory Appointment Lab 05/28/2022 Office Visit Cardiology Zulma Dolan MD [facility] [place] [address] Liz Poole PA [facility] [place] [address] 06/10/2022 Office Visit Dermatology Laura Scherer MD [facility] ER DR TEJA GR-DERMAT [place], [place] [address] (Wo rk) documented as of [...] 444 ms MUSE SYSTEM (Bezet) Calculated P [place] 44 degrees MUSE SYSTEM Calculated R [place] -31 degrees MUSE SYSTEM Calculated T [place] 106 degrees MUSE SYSTEM INTERPRETATION Normal sinus [...] (L) 20 - 40 [place] mg/dL [facility] LABORATORY Comment: Prealbumin levels are [...] Organization Address City/State/[place] [address] (ABNORMAL) Basic Metabolic Panel (non-fasting) (08/06/2017 12:32 PM EST) athologist Signature Glucose Lvl 92 65 - 199 [facility] mg/dL [facility] [...] mg/dL [facility] LABORATORY Estimated GFR 53 (L) >=60 [facility] LABORATORY Comment: The reported eGFR should be multiplied b y 1.2 for patients. The MDRD is not an appropriate measure o f renal function for patients with body mass extremes or in patients with acute kidney failure. http://[employer]/DHnkdep http://[employer]/DHMCnkf Specimen Anatomical Collection Method Collection Time Receive d Time (Source) Location / / Volume Laterality Blood specimen 08/06/2017 12:32 8 1:15 (specimen) PM EST PM EST Resulting Agency Comment Spec In Lab Arik Clement MD CHEMISTRY ORDERABLES Performing Organization Address City/State/Z[place] [address] (ABNORMAL) Hemogram (08/06/2017 12:32 PM EST) Analysis Performed At Patho logist Time Signature WBC 11.8 (H) 4.0 - 9.5 [facility] x10(3)/[facility] LABORATORY RBC 3.49 (L) 4.58 - [facility] 5.54 [facility] x10(6)/[facility] LABORATORY Hemoglobin 9.9 (L) 13.7 - [facility] 16.5 gm/dL [facility] LABORATORY Hematocrit 32.0 (L) 40.5 - [facility] 48.5 % [facility] LABORATORY MCV 91.7 82.9 - [facility] 93.1 [facility] LABORATORY MCH 28.4 27.5 - [facility] 32.[address] [facility] LABORATORY MCHC 30.9 (L) 32.0 - [facility] 35.7 gm/dL [facility] LABORATORY Platelets 326 145 - 357 [facility] x10(3)/[facility] LABORATORY RDWSD 53.4 (H) 36.0 - [facility] 45.0 [facility] LABORATORY RDWCV 16.0 (H) 11.4 - [facility] 13.8 % [facility] LABORATORY MPV 9.1 7.6 - 12.9 [facility] LABORATORY nRBC % Auto 0.0 % [facility] LABORATORY nRBC Abs Auto 0.000 0.000 - [facility] 0.000 [facility] x10(3)/[facility] LABORATORY Specimen Anatomical Collection Method Collection Time Receive d Time (Source) Location / / Volume Laterality Blood specimen 08/06/2017 12:32 8 1:15 (specimen) PM EST PM EST Resulting Agency Comment Spec In Lab Arik Clement MD HEMATOLOGY ORDERABLES Performing Organization Address City/State/Z[place] [address] documented in this encounter Visit Diagnoses Diagnosis Ischemia of foot Unspecified circulatory system disorder documented in this encounter Care Teams Risk Mgr Relationship Specialty Start Date End Date Lovely Vicente MD PCP - General 04/16/[address] [place] [address] documented as of this encounter
--- OUTSIDE RECORDS SUMMARY | 2022-04-17 08:25 | XMS_ITS | Encounter Summary ---
:1945 Author Organization [facility] [place] [address] Care Team Providers Name Role Phone oLvely Vicente MD Primary Care Provider Encounter Details Date Type Department Care Team Description 08/02/2017 Telephone Pain Management at [facility] Bueno, [place] [address] Social History Tobacco Use Types Packs/Day [...] Management Center Preauthorization Request Patient: Don Fatima [id number] Fax received from [facility] requesting we obtain prior authorization for Lidocaine patches prescribed by Barbra Soares APRN. RX insurance plan: [employer] insurance telephone: [phone] Patient Diagnosis: right foot pain secondary to PVD and ischemia Previous medications attempted: Tylenol, Tramadol, Dilaudid The following action was taken after discussion with the director of patient financial services: _x_ pharmacy informed Authorized dosage or amount: 5% on patch on for 12 hours, then remove for 12 hours. Angeles Rodrigez, RN documented in this encounter Plan of Treatment Upcoming Encounters Date Type Specialty Care Team Description 05/28/2022 Appointment Cardiology Zulma Dolan MD [facility] [place], [place] [address] (Wo rk) 05/28/2022 Laboratory Appointment Lab 05/28/2022 Office Visit Cardiology Zulma Dolan MD [facility] [place] [address] Liz Poole PA [facility] [place] [address] 06/10/2022 Office Visit Dermatology Laura Scherer MD [facility] [address] [place], [place] [address] (Wo rk) documented as of this encounter Visit Diagnoses Not on filedocumented in this encounter Care Teams Rental Sales Agent Relationship Specialty Start Date End Date Lovely Vicente MD PCP - General 04/16/[address] [place] [address] documented as of this encounter
--- OUTSIDE RECORDS SUMMARY | 2022-04-17 08:25 | XMS_ITS | Encounter Summary ---
:1945 Author Organization [facility] [place] [address] Care Team Providers Name Role Phone Lovely Vicente MD Primary Care Provider Reason for Visit Auth/Cert Specialty Diagnoses / Procedures Referred By Contact Refer red To Contact Diagnoses Critical lower limb ischemia CELLULITIS RT FOOT Procedures EMERGENCY Referral ID Status Reason Start Date Expiration Date Visits Requ ested Visits Authorized [id number] 1 1 Encounter Details Date Type Department Care Team Description 08/04/2017 Hospital Encounter XRay at [facility] Danette Maxwell Incisional pain [address] [place] [address] Dr Gomes, TECHNICAL SERVICES SPECIALIST [facility] [id number] CARDIOLOGY [place], [place] [address] Social History Tobacco Use Types [...] Zulma Dolan MD [facility] [place], [place] [address] (Wo rk) 05/28/2022 Laboratory Appointment Lab 05/28/2022 Office Visit Cardiology Zulma Dolan MD [facility] [place] [address] Liz Poole PA [facility] [place] [address] 06/10/2022 Office Visit Dermatology Laura Scherer MD [facility] [address] [place] [place], [place] [address] (Wo rk) documented as [...] original. EXAMINATION: XR CHEST PA AND LATERAL (Cinemagram) CLINICAL HISTORY: Checking sternal stabi lity/assess wires [...] Daniele gutiérrez 08/04/2017 4:13 PM Danette Maxwell TECHNICAL SERVICES SPECIALIST IMG DX ORDERABLES documented in this encounter Visit Diagnoses Diagnosis Incisional pain Disturbance of skin sensation documented in this encounter Care Teams Etiquette Teacher Relationship Specialty Start Date End Date Lovely Vicente MD PCP - General 04/16/[address] [place] [address] documented as of this encounter
--- OUTSIDE RECORDS SUMMARY | 2022-04-17 08:25 | XMS_ITS | Encounter Summary ---
:1945 Author Organization [facility] Address [facility] [place] [address] Care Team Providers Name Role Phone Lovely Vicente MD Primary Care Provider Reason for Visit Auth/Cert Specialty Diagnoses / Procedures Referred By Contact Refer red To Contact Diagnoses Critical lower limb ischemia CELLULITIS RT FOOT Procedures EMERGENCY Referral ID Status Reason Start Date Expiration Date Visits Requ ested Visits Authorized [id number] 1 1 Encounter Details Date Type Department Care Team Description 08/04/2017 Laboratory Lab 3L Barbara Cardiomyopathy, unspecified type; Appointment [facility] Systolic congestive heart failure, unspecified congestive heart failure chronicity; Hospital Coronary artery rupture; [facility] Ischemic cardiomyopathy; Drive Atherosclerosis of mus[place]ogee co ronary artery, angina presence unspecified, unspecified whether muscogee or transplanted heart; [place], [place] Essential hyper tension, malignant; [id number] 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, unspecified meat team member insulin use status [phone] Social History Tobacco Use Types Packs/Day Years [...] MD [facility] [address] [place] [address] (Wo rk) 05/28/2022 Laboratory Appointment Lab 05/28/2022 Office Visit Cardiology Zulma Dolan MD [facility] [place] [address] Liz Poole PA [facility] [place] [address] 06/10/2022 Office Visit Dermatology Laura Scherer MD [facility] ER [address] [place], [place] [address] (Wo rk) documented as of this encounter Procedures Procedure Name Priority Date/Time Associated Diagnosis Comme nts HEMOGRAM Routine 08/04/2017 12:55 Essential Results for this PM EST hypertension, procedure are in malignant the results section. PROTHROMBIN TIME Routine 08/04/2017 12:55 Coronary artery Resu lts for this PM EST rupture procedure are in Ischemic the results cardiomyopathy section. Atherosclerosis of muscogee coronary artery, angina presence unspecified, unspecified whether mus[place]ogee or transplanted heart URIC ACID Routine 08/04/2017 [...] with the results diabetic section. nephropathy, unspecified [facility] insulin use status Essential hypertension, malignant COMPREHENSIVE Routine 08/04/2017 12:55 Essential Results fo r this METABOLIC PANEL PM EST hypertension, procedure a re in (NON-FASTING) malignant the results section. documented in this encounter Results Uric acid (08/04/2017 12:55 PM EST) P athologist Signature Uric Acid 7.1 3.5 - 8.5 [facility]dL [facility] Specimen Anatomical Collection Method Collection Time Receive d Time (Source) Location / / Volume Laterality Blood specimen 08/04/2017 12:55 8 1:01 (specimen) PM EST PM EST Resulting Agency Comment Spec In Lab Lovely Vicente MD CHEMISTRY ORDERABLES Performing Organization Address City/[facility]/[place] [address] (ABNORMAL) Hemogram (08/04/2017 12:55 PM EST) Analysis Performed At Patho logist Time Signature WBC 15.8 (H) 4.0 - 9.5 [facility] x[facility](3)/[facility] LABORATORY RBC 3.48 (L) 4.58 - [facility] RYAN 5.54 [facility] x10(6)/[facility] LABORATORY Hemoglobin 9.9 (L) 13.7 - [facility] 16.5 gm/dL [facility] Hematocrit 31.4 (L) 40.5 - [facility] 48.5 % [facility] MCV 90.2 82.9 - [facility] 93.1 [facility] LABORATORY MCH 28.4 27.5 - [facility] 32.[address] [facility] MCHC 31.5 (L) 32.0 - [facility] 35.7 gm/dL [facility] Platelets 310 145 - 357 [facility] x10(3)/[facility] LABORATORY RDWSD 51.8 (H) 36.0 - [facility] 45.0 [facility] LABORATORY RDWCV 15.8 (H) 11.4 - [facility] RYAN 13.8 % [facility] LABOR[facility]ORY MPV 8.9 7.6 - 12.9 [facility] LABORATORY nRBC % Auto 0.0 % [facility] LABORATORY nRBC Abs Auto 0.000 0.000 - [facility] 0.000 [facility] x10(3)/[facility] LABORATORY Specimen Anatomical Collection Method Collection Time Receive d Time (Source) Location / / Volume Laterality Blood specimen 08/04/2017 12:55 8 1:01 (specimen) PM EST PM EST Resulting Agency Comment Spec In Lab Lovely Vicente MD HEMATOLOGY ORDERABLES Performing Organization Address City/State/[place] [address] (ABNORMAL) Comprehensive metabolic panel (non-fasting) (08/04/2017 12:55 PM EST) athologist Signature Glucose Lvl 208 (H) 65 - 199 [facility] mg/dL [facility] [...] LABORATORY Albumin 3.4 3.2 - 5.2 gm/dL [facility] AST 20 0 - 39 unit/L [facility] ALT 21 0 - 55 unit/L [facility] Alk Phos 93 40 - 120 unit/L [facility] Total Bilirubin 0.4 0.2 - 1.3 mg/dL [facility] LABOR[facility]ORY Estimated GFR 43 (L) >=60 [facility] Comment: The reported eGFR should be multiplied b y 1.2 for patients. The MDRD is not an appropriate measure o f renal function for patients with body mass extremes or in patients with acute kidney failure. http://Snoball/DHnkdep http://Snoball/DHMCnkf Specimen Anatomical Collection Method Collection Time Receive d Time (Source) Location / / Volume Laterality Blood specimen 08/04/2017 12:55 8 1:01 (specimen) PM EST PM EST Resulting Agency Comment Spec In Lab Lovely Vicente MD CHEMISTRY ORDERABLES Performing Organization Address City/State/ZIP Code Phon e Number [place] [phone] (ABNORMAL) Hemoglobin A1c (08/04/2017 12:55 PM EST) Analysis Performed At Patho logist Time Signature Hemoglobin A1C 6.2 (H) 4.3 - 5.6 [facility] [...] into estimated average glucose values. ??Diabetes Care 2008:31(8):3194-0188. Specimen Anatomical Collection Method Collection Time Receive d Time (Source) Location / / Volume Laterality Blood specimen 08/04/2017 12:55 8 1:01 (specimen) PM EST PM EST Resulting Agency Comment Spec In Lab Lovely Vicente MD CHEMISTRY ORDERABLES Performing Organization Address [facility] [place] [address] (ABNORMAL) Prothrombin Time (08/04/2017 12:55 PM EST) P athologist Signature PT 35.4 (H) 11.8 - 14.0 [facility] LABORATORY INR 3.5 (H) 0.9 - 1.1 [facility] [...] Vicente MD HEMATOLOGY ORDERABLES Performing Organization Address [facility] [place] [address] (ABNORMAL) pro-Brain Natriuretic Peptide (08/04/2017 12:55 PM EST) P athologist Signature ProBNP 3,133 (H) <=125 [facility] pg/mL [facility] LAB[facility]ORY Specimen Anatomical Collection Method Collection Time Receive d Time (Source) Location / / Volume Laterality Blood specimen 08/04/2017 12:55 8 1:01 (specimen) PM EST PM EST Resulting Agency Comment Spec In Lab Danette Maxwell APRN CHEMISTRY ORDERABLES Performing Organization Address City/State/[place] [address] documented in this encounter Visit Diagnoses Diagnosis Cardiomyopathy, unspecified type Systolic congestive heart failure, unspe cified congestive heart failure chronicity Coronary artery rupture Acute myocardial infarction, unspecified site, episode of care unspecified Ischemic cardiomyopathy Other specified forms of chronic ischemi c heart disease Atherosclerosis of mus[place]ee coronary arter y, angina presence unspecified, unspecified whether [place] or transplanted heart Essential hypertension, malignant Diabetes mellitus due to underlying cond ition with diabetic nephropathy, unspecified meat team member insulin use status documented in this encounter Care Teams Culinary Manager Relationship Specialty Start Date End Date Lovely Vicente MD PCP - General 04/16/[address] [place] [address] documented as of this encounter
--- OUTSIDE RECORDS SUMMARY | 2022-04-17 08:25 | XMS_ITS | Encounter Summary ---
:1945 Author Organization [facility] [place] [address] Care Team Providers Name Role Phone Lovely Vicente MD Primary Care Provider Reason for Visit Reason Comments Foot Pain Auth/Cert Specialty Diagnoses / Procedures Referred By Contact Refer red To Contact Diagnoses Ischemic foot Procedures NAYE OBSVO Referral ID Status Reason Start Date Expiration Date Visits Requ ested Visits Authorized [id number] 1 1 Encounter Details Date Type Department Care Team Description 07/27/2017 Emergency 1 [facility] Lokesh Swenson MD [facility] [address] [place] [address] Femoral artery pseudo-aneurysm, right; [facility] Tam Bauman MD [facility] [place] [address] [place] [address] Social History Tobacco Use Types Packs/Day [...] Gregory Fatima Patient Age: 72 y.o. Language: Bangladeshi Race: White Ethnicity: Not nor Admit date: [...] please contact your inpatient physician through the [facility] Dispensing Operator . Issues after hours and on [...] RLE critical limb ischemia, who presented to [facility] with worsening RLE pain. Pt post-op course after CABG was significant for paroxysmal Afib, and he was started on Coumadin given elevated [id number] score. He presented 2 weeks following that, on 07/20, with RLE pain/pallor andwas found to have critical limb ischemia in setting of subtherapeutic INR, pseudoaneurysm Rt PHARMACOGENETICIST and occlusion b/l ant tibial arteries. He [...] in the last 7068 hours. Invalid input(s): [id number] Recent Labs 07/08/17 0400 07/07/17 0515 07/06/17 [...] (it was low at 1.6 here at [facility]) 7. Use the tramadol if dilaudid or tylenol is not working 8. Stop taking the potassium supplement - your blood potassium level was elevated. Ask your doctors at future visits if this should be restarted. 9. Antibiotic for 5 days recommended by cardiothoracic surgery for chest wound drainage Follow-Up Appointments Vascular surgery as previously schedule Your Inpatient Doctor(s) at [facility]: CARLOS ALBERTO ROSALES MD General Instructions None Future Appointments and Orders Future Appointments Provider Department Dept Phone 07/30/2017 8:30 AM OSWALDO, THREE L Lab 3L [facility] [phone] 07/30/2017 9:40 AM Danette Maxwell APRN Cardiology at [place] [phone] 08/04/2017 1:00 PM Daniele Mooney [place] V[facility] [place] [phone] 08/04/2017 2:15 PM Arik Clement MD Vascular Surgery at [place] [phone] 08/11/2017 10:00 AM [facility] ROOM 2 XRay at [place] [phone] Please go to Senior Restaurant Manager Area 3T ([place] Location). 08/11/2017 11:00 AM Yuan Retana MD Cardiac Surgery at [place] [phone] 09/07/2017 3:00 PM LAB, THREE L Lab 3L [facility] [phone] 09/07/2017 4:00 PM Luz Prescott MD Endocrinology at [place] [phone] Discharge References/Attachments None documented in this encounter [...] (it was low at 1.6 here at [facility]) 3. Use the tramadol if dilaudid or tylenol is not working 4. Stop taking the potassium supplement - your blood potassium level was elevated. Ask your doctors at future visits if this should be restarted. 5. Antibiotic for 5 days recommended by cardiothoracic surgery for chest wound drainage Follow-Up Appointments Vascular surgery as previously schedule Your Inpatient Doctor(s) at [facility]: CARLOS ALBERTO ROSALES MD [...] Gas) No results found for: PHART, PO2ART, PQU5WVP Assessment/Plan: 72 y.o. male s/p CABG in [...] intervention: Education Nutrition Recommendations: Recommend continuation of [facility], CHO2 diet order Patient [...] Orders Diet Daily Healthy Menu Choices/Cardiac diet ([facility]-Diet) 60/ CHO counting level 2 Frequency: Effective Now Number of Occurrences: Until Specified Admit Weight: 83.92 kg Estimated body mass index is 28.13 kg/(m^2) as calculated from the following: Height as of this encounter: 172.7 cm (5' 8). Weight as of this encounter: 83.9 kg (185 lb). [place] body weight: 68.4 kg (150 lb 12.7 [...] RLE critical limb ischemia, who presented to [facility] with worsening RLE pain. [...] spent >30 minutes (Day of Discharge Code 63054) involved in the final examination of the [...] Melanoma ID: 72 y.o. Male presents to [facility] with persistent pain b/l lower extremities History of Present Illness: HPI 72 y.o. male with PMH ASCVD s/p CABG (07/07/17), MARIA VICTORIA on CPAP QHS, HTN, HLD, DM2, with recent hospitalization for RLE critical limb ischemia, who presented to [facility] with worsening RLE pain. Pt post-op course after CABG was significant for paroxysmal Afib, and he was started on Coumadin given elevated [id number] score. He presented 2 weeks following that, on 07/20, with RLE pain/pallor andwas found to have critical limb ischemia in setting of subtherapeutic INR, pseudoaneurysm Rt PHARMACOGENETICIST and occlusion b/l ant tibial arteries. He [...] performed by Manny Mcknight MD at [facility] OR ??? PRO CABG, ARTERIAL, SINGLE N/A 07/07/2017 @CABG, USING ARTERIAL GRAFT;SINGLE ARTERIAL GRAFT (WRVU 33.75) performed by Yuan Retana MD at [facility] OR ??? PRO CABG, ARTERY-VEIN, TWO N/A 07/07/2017 @CABG, TWO VENOUS GRAFTS & ARTERIAL GRAFT (WRVU 7.93) performed by Yuan Retana MD at [facility] OR ??? PRO COLONOSCOPY, REMV LESN, SNARE 01/16/2014 COLONOSCOPY, POLYPECTOMY, REMOVAL LESION BY SNARE performed by Nohemi Jaimes MD at [facility] ENDOSCOPY ??? PRO ENDOSCOPY W/VIDEO-ASST VEIN HARVEST, CABG Right 07/07/2017 ENDOSCOPIC HARVEST VEIN(S) FOR CABG (WRVU 0.31) performed by Yuan Retana MD at [facility] OR ??? PRO THYROIDECTOMY 03/28/2013 THYROIDECTOMY, TOTAL OR COMPLETE performed by Manny Mcknight MD at [facility] OR Prior To Admission Medications: [...] Procedure Component Value Units Date/Time Blood culture [[id number]] Collected: 07/09/1739 Lab Status: Final result Specimen: Blood from Arm, Right Updated: 07/14/17701 Blood Culture No growth at 5 days. Blood culture [[id number]] Collected: 07/09/170 Lab Status: Final result Specimen: [...] limb ischemia following CABG, who presented to [facility] ED from home with [...] continued Diet Daily Healthy Menu Choices/Cardiac diet ([facility]-Diet) 60/60/75 CHO counting level 2Cardiac, low salt, CHO 2 Discharge planning Pending improvement in pain control PT/OT/Speech PT ordered Lines/Access PIV Ocasio catheter No DVT/GI Prophylaxis Lovenox bridge to Coumadin, SCD. Code status Full Code Family PCP Lovely Vicente MD [phone] Attestation Please see my note for details [...] encounter Miscellaneous Notes Plan of Care - [place]-Joyce Damian, PT - 07/27/2017 3:26 PM EST [...] Anticipated Discharge Disposition: home with assist Pager: [phone] JOYCE KING, PT Inpatient Physical Therapy 2017 [...] evaluation including the following functional test(s) [facility]. Current ability measures, co-morbidities and clinical [...] a lovenox bridge. Mr. Fatima returns to [facility] ED tonight because of [...] performed by Manny Mcknight MD at [facility] OR ??? PRO CABG, ARTERIAL, SINGLE N/A 07/07/2017 @CABG, USING ARTERIAL GRAFT;SINGLE ARTERIAL GRAFT (WRVU 33.75) performed by Yuan Retana MD at [facility] OR ??? PRO CABG, ARTERY-VEIN, TWO N/A 07/07/2017 @CABG, TWO VENOUS GRAFTS & ARTERIAL GRAFT (WRVU 7.93) performed by Yuan Retana MD at [facility] OR ??? PRO COLONOSCOPY, REMV LESN, SNARE 01/16/2014 COLONOSCOPY, POLYPECTOMY, REMOVAL LESION BY SNARE performed by Nohemi Jaimes MD at [facility] ENDOSCOPY ??? PRO ENDOSCOPY W/VIDEO-ASST VEIN HARVEST, CABG Right 07/07/2017 ENDOSCOPIC HARVEST VEIN(S) FOR CABG (WRVU 0.31) performed by Yuan Retana MD at [facility] OR ??? PRO THYROIDECTOMY 03/28/2013 THYROIDECTOMY, TOTAL OR COMPLETE performed by Manny Mcknight MD at [facility] OR MEDICATIONS: No current facility-administered [...] Cardiology Zulma Dolan MD [facility] [place], [place] [address] (Wo rk) 05/28/2022 Laboratory Appointment Lab 05/28/2022 Office Visit Cardiology Zulma Dolan MD [facility] [place] [address] [facility] [place] [address] 06/10/2022 Office Visit Dermatology Laura Scherer MD [facility] [address] [place], [place] [address] (Wo rk) documented as [...] section. TYPE AND SCREEN STAT 07/27/2017 12:53 ([facility]/CGP/SHANDA) AM EST BASIC METABOLIC PANEL STAT 07/27/2017 12:53 Re sults for this (NON-FASTING) AM EST procedure are in the results section. documented in this encounter Results POCT Glucose (07/27/2017 11:53 AM EST) P athologist Signature POC Glucose 175 65 - 199 [facility] mg/dL [facility] LABORATORY [...] Address City/State/[place] [address] Arterial Duplex Leg, Unil (07/27/2017 7:40 AM EST) Component Value Ref Test Analysis Performed At Patholo gist Range Method Time Signature VB Text Department: Vascular Surgery Lab VASCUBASE Report Patient: [id number] (GREGORY FATIMA) CPT: 08263 ICD10: I97.610;I72.4;Z09 Referring Physician: TAM BAUMAN ?? [...] Bauman MD VASCULAR ORDERABLES Performing Organization Address City/[facility]/ZIP Code Phon e Number VASCUBASE POCT Glucose (07/27/2017 6:51 AM EST) P athologist Signature POC Glucose 96 65 - 199 [facility] mg/dL [facility] LABORATORY [...] Performing Organization Address City/[facility]/ZIP [facility] Phon e Number [address] ABORH Recheck Status (07/27/2017 [...] [facility]/ZIP [place] [address] Gold Tube HOLD (07/27/2017 12:53 AM EST) P athologist Signature Gold Hold Sample in [facility]. [facility] LABORATORY Specimen Anatomical Collection Method Collection Time Receive d Time (Source) Location / / Volume Laterality Blood specimen Venous Draw / 07/27/2017 12:53 07/27/19 18 1:01 (specimen) Unknown AM EST AM EST Angela Swenson MD CHEMISTRY ORDERABLES Performing Organization Address City/State/[place] [address] (ABNORMAL) Differential, Automated (07/27/2017 12:53 AM EST) Patholo gist Method Time Signature Neutrophils % 75.0 % [facility] LABORATORY Neutr Abs (ANC) 11.30 (H) 1.70 - [facility] 6.10 [facility] x10(3)/[facility] LABORATORY Lymphocytes % 9.9 % [facility] LABORATORY Lymphocytes Abs 1.5 0.9 - 3.2 [facility] x10(3)/[facility] LABORATORY Monocytes % 8.6 % [facility] LABORATORY Monocyte Abs 1.3 (H) 0.3 - 0.9 [facility] x10(3)/[facility] LABORATORY Eosinophils % 4.8 % [facility] LABORATORY Eosinophils Abs 0.7 (H) 0.0 - 0.4 [facility] x10(3)/[facility] LABORATORY Basophils % 0.8 % [facility] LABORATORY Basophils Abs 0.1 0.0 - 0.1 [facility] x10(3)/[facility] LABORATORY Immature Gran % 0.90 % [facility] [...] Abs 0.13 (H) 0.00 - 0.04 x10(3)/[facility] LABORATORY Specimen Anatomical Collection Method Collection Time Receive d Time (Source) Location / / Volume Laterality Blood specimen 07/27/2017 12:53 8 1:00 (specimen) AM EST AM EST Resulting Agency Comment Spec In Lab Angela Swenson MD HEMATOLOGY ORDERABLES Performing Organization Address City/State/[place] [address] (ABNORMAL) Hemogram (07/27/2017 12:53 AM EST) Analysis Performed At Patho logist Time Signature WBC 15.0 (H) 4.0 - 9.5 [facility] x[facility](3[facility] LABORATORY RBC 3.59 (L) 4.58 - [facility] 5.54 [facility] x10(6)/[facility] LABORATORY Hemoglobin 10.3 (L) 13.7 - [facility] 16.5 gm/dL [facility] LABORATORY Hematocrit 32.6 (L) 40.5 - [facility] 48.5 % [facility] LABORATORY MCV 90.8 82.9 - [facility] 93.1 [facility] LABORATORY MCH 28.7 27.5 - [facility] RYAN 32.1 pg [facility] LABORATORY MCHC 31.6 (L) 32.0 - [facility] 35.7 gm/dL [facility] LABORATORY Platelets 322 145 - 357 [facility] x10(3)/[facility] RDWSD 48.7 (H) 36.0 - [facility] RYAN 45.0 [facility] LABORATORY RDWCV 14.7 (H) 11.4 - [facility] RYAN 13.8 % [facility] LABORATORY MPV 8.9 7.6 - 12.9 [facility] LABORATORY nRBC % Auto 0.0 % [facility] LABORATORY nRBC Abs Auto 0.000 0.000 - [facility] RYAN 0.000 [facility] x10(3)/[facility] LABORATORY Specimen Anatomical Collection Method Collection Time Receive d Time (Source) Location / / Volume Laterality Blood specimen 07/27/2017 12:53 8 1:00 (specimen) AM EST AM EST Resulting Agency Comment Spec In Lab Angela Swenson MD HEMATOLOGY ORDERABLES Performing Organization Address City/State/[place] [address] Antibody screen (07/27/2017 12:53 AM EST) Patholo gist Method Time Signature Ab Screen Negative [facility] LABORATORY Expires at 07/30/2017 KATALINA ZHAORYAN [id number] on: [facility] LABORATORY Specimen Anatomical Collection Method Collection Time Receive d Time (Source) Location / / Volume Laterality Blood specimen 07/27/2017 12:53 8 (specimen) AM EST 12:58 AM EST Resulting Agency Comment Spec In Lab Angela Swenson MD BLOOD BANK ORDERABLES Performing Organization Address City/[facility]/ZIP [place] [address] ABO/Rh Typing (07/27/2017 12:53 [...] ORDERABLES Performing Organization Address City/[facility] [place] [address] (ABNORMAL) Prothrombin Time (07/27/2017 12:53 AM EST) P athologist Signature PT 19.1 (H) 11.8 - 14.0 [facility] [...] Address City/State/[place] [address] (ABNORMAL) Basic Metabolic Panel (non-fasting) (07/27/2017 12:53 AM EST) athologist Signature Glucose Lvl 95 65 - 199 [facility] mg/dL [facility] LABORATORY Comment: Diabetes: >=200 mg/dL plus symp toms BUN 37 (H) 10 - 20 mg/dL [facility] LABORATORY Creatinine 1.49 0.80 - 1.50 mg/dL [facility] [...] or in patients with acute kidney failure. 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
Routine documented in this encounter Care Teams Food And Drug Inspector Relationship Specialty Start Date End Date Lovely Vicente MD PCP - General 04/16/15 [facility] [address] [facility] [address] [place] [address] documented as of this encounter
--- OUTSIDE RECORDS SUMMARY | 2022-04-17 08:25 | XMS_ITS | Encounter Summary ---
:1945 Author Organization [facility] [place] [address] Care Team Providers Name Role Phone Lovely Vicente MD Primary Care Provider Reason for Visit Reason Onset Date Comments Other 07/22/2017 lovenox bridge Encounter Details Date Type Department Care Team Description 07/22/2017 Telephone Cardiology at [facility] Cadena RN Other (lovenox bridge) [place] [address] Social History Tobacco Use Types Packs/Day [...] 4:49 PM EST VAMSI Del Castillo, at [facility], called earlier today with a question re: lovenox bridge for this patient who was recently discharged from [facility] r/t a blood clot. Discharge note faxed to [facility] (fax# [phone], Ph#: [phone]) which contains instructions r/t lovenox bridge as follows: Anticoagulation: on lovenox bridge to therapeutic coumadin for AFib. Goal INR 2-3. At discharge INR=1.5. The lovenox injections can stop when INR >2, coumadin will continue indefinitely. documented in this encounter Plan of Treatment Upcoming Encounters Date Type Specialty Care Team Description 05/28/2022 Appointment Cardiology Zulma Dolan MD [facility] [place], [place] [address] (Wo rk) 05/28/2022 Laboratory Appointment Lab 05/28/2022 Office Visit Cardiology Zulma Dolan MD [facility] [place] [address] Liz Poole PA [facility] [place] [address] 06/10/2022 Office Visit Dermatology Laura Scherer MD [facility] [address] [place], [place] [address] (Wo rk) documented as of this encounter Visit Diagnoses Not on filedocumented in this encounter Care Teams Java Portal Developer Relationship Specialty Start Date End Date Lovely Vicente MD PCP - General 04/16/15 [facility] [address] [place] [address] documented as of this encounter
--- OUTSIDE RECORDS SUMMARY | 2022-04-17 08:25 | XMS_ITS | Encounter Summary ---
:1945 [place] [address] Care Team Providers Name Role Phone Lovely Vicente MD Primary Care Provider Encounter Details Date Type Department Care Team Description 08/04/2017 Notes Only Cardiac Surgery Makayla Wilson APRN [facility] [place] [address] CARDIAC SURGERY [phone] [place], [place] [address] (Wo rk) Social History Tobacco [...] Dolan MD [facility] [place], [place] [address] (Wo rk) 05/28/2022 Laboratory Appointment Lab 05/28/2022 Office Visit Cardiology Zulma Dolan MD [facility] [place] [address] Liz Poole PA [facility] [place] [address] 06/10/2022 Office Visit Dermatology Laura Scherer MD [facility] [address] [place], [place] [address] (Wo rk) documented as of this encounter Visit Diagnoses Not on filedocumented in this encounter Care Teams Software Engineer Web Services Relationship Specialty Start Date End Date Lovely Vicente MD PCP - General 04/16/[address] [place] [address] documented as of this encounter
--- OUTSIDE RECORDS SUMMARY | 2022-04-17 08:25 | XMS_ITS | Encounter Summary ---
:1945 Author Organization [facility] [place] [address] Care Team Providers Name Role Phone Lovely Vicente MD Primary Care Provider Reason for Visit Reason Comments Foot Ulcer WOUND CHECK Auth/Cert Specialty Diagnoses / Procedures Referred By Contact Refer red To Contact Diagnoses Critical lower limb ischemia CELLULITIS RT FOOT Procedures EMERGENCY Referral ID Status Reason Start Date Expiration Date Visits Requ ested Visits Authorized [id number] 1 1 Encounter Details Date Type Department Care Team Description 08/06/2017 [facility] ischemia [facility] [address] [place], [place] VASCULAR SURGERY [id number] [place] [address] [phone] Social History Tobacco Use Types Packs/Day Years [...] Smith MD - 08/06/2017 1:00 PM EST [facility] staff: 1. RIGHT leg CLI Interval [...] MD [facility] [address], [place] [address] (Wo ) 05/28/2022 Laboratory Appointment Lab 05/28/2022 Office Visit Cardiology Zulma Dolan MD [facility] [place] [address] Liz Poole PA [facility] [place] [address] 06/10/2022 Office Visit Dermatology Laura Scherer MD [facility] [address] [place], [place] [address] (Wo rk) documented as of this encounter Visit Diagnoses Diagnosis Critical lower limb ischemia Unspecified circulatory system disorder documented in this encounter Care Teams Sample Prep Technician Relationship Specialty Start Date End Date Lovely Vicente MD PCP - General 04/16/[address] [place], [place] [address] documented as of this encounter
--- OUTSIDE RECORDS SUMMARY | 2022-04-17 08:26 | XMS_ITS | Encounter Summary ---
:1945 [place] [address] Care Team Providers Name Role Phone Lovely Vicente MD Primary Care Provider Reason for Visit Reason Comments Hospital Transfer cold foot post CABG Auth/Cert Specialty Diagnoses / Procedures Referred By Contact Refer red To Contact Diagnoses Critical lower limb ischemia Procedures NAYE IPI Referral ID Status Reason Start Date Expiration Date Visits Requ ested Visits Authorized [id number] 1 1 Encounter Details Date Type Department Care Team Description 07/20/2017 Hospital Encounter [address] [facility] [address] Critical lower limb [facility] Arik Clement MD [facility] [place] [address] [place] [address] Social History Tobacco Use Types Packs/Day Years [...] home. Important Studies and Lab Data: Labs: [facility] Results Component Value Date INR 1.5 [...] For any problems or questions please call [phone] EZLDA Smith, database technician Nurse Clinician For issues on weeknights after 5pm and weekends please call [phone] and ask for the Vascular Fellow account solutions analyst. General Instructions None Future Appointments and Orders Future Appointments Provider Department Dept Phone 08/04/2017 1:00 PM Daniele Mooney [place] [facility] [place] [phone] 08/04/2017 2:15 PM Arik Clement MD [facility] Surgery [facility] [place] [phone] 09/07/2017 3:00 PM MAYRA CHACON Lab [facility] [phone] 09/07/2017 4:00 PM Luz Prescott MD Endocrinology at [place] [phone] Future Orders Complete By Expires Arterial Duplex Leg, Unil [VAS32 Custom] 07/27/2017 (Approximate) 01/26/2018 Process Instructions: There is no in-house vascular labor utilization superintendent available on weeknights (5pm-8am), weekends, or holidays. IF THIS IS A REQUEST FOR AN EMERGENT STUDY DURING THOSE HOURS, please have the senior provider responsible for the patient page the Vascular Surgery Fellow/Senior Resident account solutions analyst to discuss options. Scheduling Instructions: Questions: Indication for study/signs & symptoms: Right femoral PSA s/p cardiac cath Question to be answered: bloodflow to PSA Laterality: Right Is there a RIGHT LOWER EXTREMITY graft?: No Lower limb right segments: Common Femoral Is there a stent?: No At which location will this be performed?: [place] Referral to Home Health - at DISCHARGE [[id number] CPT(R)] As directed Process Instructions: Scheduling Instructions: Comments: DOCUMENTATION FOR VNA SERVICES (INCLUDING THOSE PATIENTS WITH MEDICARE COVERAGE REQUIRING HOME VNA SERVICES AND/OR HOSPICE SERVICES) PATIENT'S LOCATION: Gregory Fatima [address] [place] [address] [place] [id number] (home) Cell: Telephone Information: Golf Course Ranger's Name: self In discussion with the attending physician, it is certified that this patient is under their care and that they, or a Nurse Practitioner,Clinical Nurse specialist or Physician Whirley Operator who is working directly with them, [...] CARE AGENCY: [facility] M[facility] ([facility] [place] [facility]-is in [place] PHONE: [phone] FAX: [phone] Start of care: 24- 48 hours FOR [...] patient'sPCP: Lovely Vicente MD [address] [facility] [place] / [place] [address] All VNA agencies which cover the area [...] For any problems or questions please call [phone] ZELDA Smith, database technician Nurse Clinician For issues on weeknights after 5pm and weekends please call [phone] and ask for the Vascular Fellow account solutions analyst. documented in this encounter Medications at [...] RN - 07/20/2017 2:53 PM EST The patient/wireless sales representative has been provided a list of Home Health Agencies/DME vendors which serve their preferred geographic area. A letter describing our affiliations was reviewed with them and theywere educated about their right to choose where referrals are placed. Patient requests referral to [facility]. PHONE: [phone] FAX: [phone]. Expected date of discharge: 07/20/2017 . Referral routed to the Co Founder & Ceo for matching with agency/vendor and to provide any required information. 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 A letter describing our affiliations was reviewed with them and theywere educated about their right to choose where referrals are placed. Patient requests referral to [facility] ([facility] [place] [facility]- is in [facility] PHONE: [phone] FAX: [phone]. Expected date of discharge: 07/20/2017 . Referral routed to the Co Founder & Ceo for matching with agency/vendor and to provide any required information. Katina Pulliam RNreserve officer Janneth Lee MD - 07/20/2017 7:29 [...] SETUP performed by Manny Mcknight MD at [facility] MAIN OR ??? PRO CABG, ARTERIAL, SINGLE N/A 07/07/2017 @CABG, USING ARTERIAL GRAFT;SINGLE ARTERIAL GRAFT (WRVU 33.75) performed by Yuan Retana MD at [facility] MAIN OR ??? PRO CABG, ARTERY-VEIN, TWO N/A 07/07/2017 @CABG, TWO VENOUS GRAFTS & ARTERIAL GRAFT (WRVU 7.93) performed by Yuan Retana MD at [facility] MAIN OR ??? PRO COLONOSCOPY, REMV LESN, SNARE 01/16/2014 COLONOSCOPY, POLYPECTOMY, REMOVAL LESION BY SNARE performed by Nohemi Jaimes MD at [facility] ENDOSCOPY ??? PRO ENDOSCOPY W/VIDEO-ASST VEIN HARVEST, CABG Right 07/07/2017 ENDOSCOPIC HARVEST VEIN(S) FOR CABG (WRVU 0.31) performed by Yuan Retana MD at [facility] MAIN OR ??? PRO THYROIDECTOMY 03/28/2013 THYROIDECTOMY, TOTAL OR COMPLETE performed by Manny Mcknight MD at [facility] MAIN OR Functional Status/Social Hx: [...] -ISS -pain control Discussed with Vascular Fellow account solutions analyst. Chris Valadez MD PGY2 Pager [phone] documented in this encounter ED Notes Annita Reaves MD - 07/20/2017 3:15 PM EST Emergency Department Gregory Fatima is a 72 y.o. male who presents to [facility] with arterial thrombosis. [...] Days: [facility] 07/05/17 Anticipated Length [...] Health/Prescription Coverage: Primary Insurance: MEDICARE Secondary Insurance: [employer] [facility] Prescription Coverage: See above Preferred Pharmacy: [facility] Other: N/A Primary Care Provider: Lovely Vicente MD [phone] Patient/Caregiver Goals of Treatment: Patient plans to return home when medically ready Potential Needs for Transition of Care: Rehab/SNF: N/A Home Health: [facility] Mung[facility] ([facility] [place] [facility]-is in [place] PHONE: [phone] FAX: [phone] DME: N/A Dialysis: N/A Community Resources: N/A Transportation: Patient family will transport Other: N/A Anticipated Barriers to Discharge/Special Considerations: None Plan: Patient plans to return home with home health services when medically ready A member of the Care Management team will continue to monitor progress, follow for continuity of care and assist with transition of care planning. Naty Pulliam, RN Pager: [phone] ED Triage - Rayna Weir RN - 07/20/2017 12:28 AM EST Pt transferred from [place] for blue right foot and painful toes. [...] Dolan MD [facility] [place] [address] (Wo rk) 05/28/2022 Laboratory Appointment Lab 05/28/2022 Office Visit Cardiology Zulma Dolan MD [facility] [place] [address] Liz Poole PA [facility] [place] [address] 06/10/2022 Office Visit Dermatology Laura Scherer MD [facility] [address], [place] [address] (Wo rk) documented as of this encounter Procedures Procedure Name Priority Date/Time Associated Comments Diagnosis ENGRAVER TENDER SCAN 09/02/2017 12:00 Res ults for this [...] TO LAB EST procedure are i n ([facility] the results section. APTT STAT 07/20/2017 2:25 AM Results f or this EST procedure are i n the results section. PROTHROMBIN TIME STAT 07/20/2017 2:25 AM Resul ts for this EST procedure are i n the results section. BASIC METABOLIC PANEL STAT 07/20/2017 2:25 AM Results for this (NON-FASTING) EST procedure are in the results section. documented in this encounter Results SCAN DOC: ENGRAVER TENDER (09/02/2017 12:00 AM EST) Narrative 09/02/2017 12:00 AM EST This result has an attachment that is no t available. Ordered by an unspecified provider. Scanning Provider MEDIA MGR SCAN EXT ORDR/RSLT POCT Glucose (07/20/2017 12:04 PM EST) P athologist Signature POC Glucose 189 65 - 199 [facility] mg/dL [facility] Comment: Supplemental ranges: <140 mg/dL before meals <180 mg/dL all other times of the day Specimen Anatomical Collection Method Collection Time Receive d Time (Source) Location / / Volume Laterality Blood specimen 07/20/2017 12:04 7 (specimen) PM EST 12:04 PM EST Arik Clement MD POINT OF CARE TEST ORDERABLE S Performing Organization Address City/State/ZIP [place] [address] (ABNORMAL) Differential, Automated (07/20/2017 10:34 AM EST) Patholo gist Method Time Signature Neutrophils % 84.3 % [facility] LABORATORY Neutr Abs (ANC) 14.27 (H) 1.70 - [facility] 6.10 [facility] x10(3)/[facility] LABORATORY Lymphocytes % 5.6 % [facility] LABORATORY Lymphocytes Abs 1.0 0.9 - 3.2 [facility] x10(3)/[facility] LABORATORY Monocytes % 6.1 % [facility] LABORATORY Monocyte Abs 1.0 (H) 0.3 - 0.9 [facility] x10(3)/[facility] LABORATORY Eosinophils % 2.4 % [facility] LABORATORY Eosinophils Abs 0.4 0.0 - 0.4 [facility] x10(3)/[facility] LABORATORY Basophils % 0.5 % [facility] LABORATORY Basophils Abs 0.1 0.0 - 0.1 [facility] x10(3)/[facility] LABORATORY Immature Gran % 1.10 [...] Gran Abs 0.19 (H) 0.00 - 0.04 x10(3)/[facility] LABORATORY Specimen Anatomical Collection Method Collection Time Receive d Time (Source) Location / / Volume Laterality Blood specimen 07/20/2017 10:34 7 (specimen) AM EST 10:39 AM EST Resulting Agency Comment Spec In Lab Arik Clement MD HEMATOLOGY ORDERABLES Performing Organization Address City/State/Z[place] [address] (ABNORMAL) Hemogram (07/20/2017 10:34 AM EST) Analysis Performed At Patho logist Time Signature WBC 17.0 (H) 4.0 - 9.5 [facility] LABORATORY RBC 3.70 (L) 4.58 - [facility] 5.54 [facility] x10(6)/[facility] LABORATORY Hemoglobin 10.8 (L) 13.7 - [facility] 16.5 gm/dL [facility] Hematocrit 33.4 (L) 40.5 - [facility] 48.5 % [facility] MCV 90.3 82.9 - [facility] LABORATORY MCH 29.2 27.5 - [facility] RYAN 32.1 pg [facility] LABORATORY MCHC 32.3 32.0 - [facility] RYAN 35.7 gm/dL [facility] LAB[facility]ORY Platelets 211 145 - 357 [facility] x10(3)/[facility] LABORATORY RDWSD 49.1 (H) 36.0 - [facility] RYAN 45.[address] [facility] LABORATORY RDWCV 14.7 (H) 11.4 - [facility] RYAN 13.8 % [facility] LABORATORY MPV 9.2 7.6 - 12.9 [facility] nRBC % Auto 0.0 % [facility] LABORATORY nRBC Abs Auto 0.000 0.000 - [place] RYAN 0.000 [facility] x10(3)/[facility] LABORATORY Specimen Anatomical Collection Method Collection Time Receive d Time (Source) Location / / Volume Laterality Blood specimen 07/20/2017 10:34 7 (specimen) AM EST 10:39 AM EST Resulting Agency Comment Spec In Lab Arik Clement MD HEMATOLOGY ORDERABLES Performing Organization Address City/State/Z[place] [address] (ABNORMAL) APTT (07/20/2017 10:34 [...] Clement MD HEMATOLOGY ORDERABLES Performing Organization Address City/[facility]/ZIP [place] [address] POCT Glucose (07/20/2017 7:41 AM EST) athologist Signature POC Glucose 174 65 - 199 [facility] mg/dL [facility] Comment: Supplemental ranges: <140 mg/dL [...] [facility]/ZIP Code Phon e Number [address] JULIAN, legs, multiple levels (07/20/2017 7:33 AM EST) Component Value Ref Test Analysis Performed At Patholo gist Range Method Time Signature VB Text Department: Vascular Surgery Lab VASCUBASE Report Patient: [id number] (GREGORY FATIMA) CPT: 74451 ICD10: I75.021;I99.8 Referring Physician: ARIK CLEMENT ?? [...] Department: Vascular Surgery Lab VASCUBASE Report Patient: [id number] (GREGORY FATIMA) CPT: 85999 ICD10: I97.610;I99.8 Referring Physician: ARIK CLEMENT ?? [...] Signature POC Glucose 199 65 - 199 [facility] mg/dL [facility] Comment: Supplemental ranges: <140 mg/dL before meals <180 mg/dL all other times of the day Specimen Anatomical Collection Method Collection Time Receive d Time (Source) Location / / Volume Laterality Blood specimen 07/20/2017 3:41 AM 017 3:41 (specimen) EST AM EST Arik Clement MD POINT OF CARE TEST ORDERABLE S Performing Organization Address City/[facility]/ZIP [facility] [place] [address] Lactate, whole blood, send to lab (Leb/CGP) (07/20/2017 2:25 AM EST) athologist Signature Lactate WB 2.0 0.5 - 2.2 [facility] mmol/L [facility] Specimen Anatomical Collection Method Collection Time Receive d Time (Source) Location / / Volume Laterality Blood specimen Venous Draw / 07/20/2017 2:25 AM 2016 2:37 (specimen) Unknown EST AM EST Resulting Agency Comment Spec In Lab Zulma Samuel MD CHEMISTRY ORDERABLES Performing Organization Address City/[facility] Code Phon e Number [address] (ABNORMAL) APTT (07/20/2017 2:25 [...] Reaves MD HEMATOLOGY ORDERABLES Performing Organization Address City/[facility]/ZIP [place] [address] (ABNORMAL) Prothrombin Time (07/20/2017 2:25 AM EST) athologist Signature PT 17.7 (H) 11.8 - 14.0 [facility] [...] Organization Address City/State/ZIP [place] [address] (ABNORMAL) Basic Metabolic Panel (non-fasting) (07/20/2017 2:25 AM EST) P athologist Signature Glucose Lvl 187 65 - 199 [facility] mg/dL [facility] Comment: Diabetes: >=200 mg/dL plus symp toms BUN 35 (H) 10 - 20 mg/dL [facility] LABORATORY Creatinine 1.51 (H) 0.80 - 1.50 mg/dL [facility] LABORATORY Sodium 134 (L) 135 - 145 mmol/L [facility] LABORATORY Potassium Not Perf 3.5 - 5.0 mmol/L [facility] LABOR[facility]ORY Comment: Specimen hemolyzed. Called by: [facility], Read back by: Chitra Orantes, Date/Time:07/20/17 [...] or in patients with acute kidney failure. http://Notizza/DHnkdep http://Notizza/DHMCnkf Specimen Anatomical Collection Method Collection Time Receive d Time (Source) Location / / Volume Laterality Blood specimen 07/20/2017 2:25 AM 017 2:33 (specimen) EST AM EST Resulting Agency Comment Spec In Lab Annita Reaves MD CHEMISTRY ORDERABLES Performing Organization Address City/State/ZIP Code Phon e Number [place] [id number] documented in this encounter [...]
Routine documented in this encounter Care Teams Systems Developer Relationship Specialty Start Date End Date Lovely Vicente MD PCP - General 04/16/[address] [place] [address] documented as of this encounter
--- OUTSIDE RECORDS SUMMARY | 2022-04-17 08:26 | XMS_ITS | Encounter Summary ---
:1945 [place] [address] Care Team Providers Name Role Phone Lovely Vicente MD Primary Care Provider Reason for Visit Reason Onset Date Comments Questions 07/16/2017 fluid retention Encounter Details Date Type Department Care Team Description 07/16/2017 Telephone Cardiology at [facility] Martha Comer, Questions ([facility] RN retention ) [place] [address] Social History Tobacco Use Types Packs/Day [...] the direct number to the HF team ([phone]). She is aware of his appt with LOCATOR Hans on 07/21/17 and the need for labs prior to that visit. verbalized good understanding of the current POC. documented in this encounter Plan of Treatment Upcoming Encounters Date Type Specialty Care Team Description 05/28/2022 Appointment Cardiology Zulma Dolan MD [facility] [place], [place] [address] (Wo rk) 05/28/2022 Laboratory Appointment Lab 05/28/2022 Office Visit Cardiology Zulma Dolan MD [facility] [place] [address] Liz Poole PA [facility] [place] [address] 06/10/2022 Office Visit Dermatology Laura Scherer MD [facility] DR [address] [place], [place] [address] (Wo rk) documented as of this encounter Visit Diagnoses Not on filedocumented in this encounter Care Teams Compensation Advisor Relationship Specialty Start Date End Date Lovely Vicente MD PCP - General 04/16/[address] [place] [address] documented as of this encounter
--- OUTSIDE RECORDS SUMMARY | 2022-04-17 08:26 | XMS_ITS | Encounter Summary ---
:1945 [place] [address] Care Team Providers Name Role Phone Lovely Vicente MD Primary Care Provider Encounter Details Date Type Department Care Team Description 07/16/2017 Telephone Endocrinology at [facility] C Manuela Holliday, [facility] [place] [address] ENDOCRINOLOGY DEPT [phone] [place], [place] [address] (Wo rk) Social History Tobacco [...] Dolan MD [facility] [address] [place], [place] [address] (Wo rk) 05/28/2022 Laboratory Appointment Lab 05/28/2022 Office Visit Cardiology Zulma Dolan MD [facility] [place] [address] Liz Poole PA [facility] [place] [address] 06/10/2022 Office Visit Dermatology Laura Scherer MD [facility] [address] [employer], [place] [address] (Wo rk) documented as of this encounter Visit Diagnoses Not on filedocumented in this encounter Care Teams Electric Solderer Relationship Specialty Start Date End Date Lovely Vicente MD PCP - General 04/16/[address] [place] [address] documented as of this encounter
--- OUTSIDE RECORDS SUMMARY | 2022-04-17 08:27 | XMS_ITS | Encounter Summary ---
:1945 Author Organization [facility] [place] [address] Care Team Providers Name Role Phone Lovely Vicente MD Primary Care Provider Encounter Details Date Type Department Care Team Description 07/08/2017 Orders Only [facility] [place] [address] Social History Tobacco Use Types Packs/Day [...] Zulma Dolan MD [facility] [place], [place] [address] (Wo rk) 05/28/2022 Laboratory Appointment Lab 05/28/2022 Office Visit Cardiology Zulma Dolan MD [facility] [place] [address] Liz Poole PA [facility] [place] [address] 06/10/2022 Office Visit Dermatology Laura Scherer MD [facility] ER [address] [address] (Wo rk) documented as of this encounter Procedures Procedure Name Priority Date/Time Associated Diagnosis Comme nts TRANSESOPHAGEAL Routine 07/08/2017 Results for this ECHOCARDIOGRAM (AEVLINO) procedu re are in the results section. documented in this encounter Results Transesophageal Echocardiogram (AVELINO) (07/08/2017) Anatomical Region Laterality Modality Other Specimen (Source) Anatomical Location Collection Method / Collectio n Time Received Time / Laterality Volume 07/08/2017 Narrative 07/08/2017 12:25 PM EST Procedure: ?Transesophageal Echocardiogram Patient: ?NATALYA Mccollum ? (Age): 1945(72y) Med Rec#: ? [id number] ?Sex: ?M ? Site Loc: ? Ht / Wt: ??(cm)/ (kg) ? Pt. Loc: ? Study Date: ?? 07/07/2017 ?Pt. Type: Tape: ? Referring: Yuan Retana Reading: Yifan Perez MD ([id number]) Performing: Yifan Perez MD ([id number]) Diagnosis: SUMMARY: 1. Intraoperative AVELINO performed at [...] ? Mid-Inferior ?Hypokinetic ? Mid-Inferoseptal ?Hypokinetic ? [place]-Septal ? Hypokinetic ? [place]-Anterior ? Hypokinetic ? [place]-Lateral ?Hypokinetic ? [place]-Inferior ? Hypokinetic ? [place]-Tip ?Not Seen ? This report has been electronically sign ed by: _ Yifan Perez MD ? 07/08/2017 12 :25:18 Images reviewed and interpretation verif ied [facility] Cardiac Ultrasound Laboratory Procedure Note Yifan Perez MD - 07/08/2017Formatt ing of this note might be different from the original. Procedure: Transesophageal Echocardiogra m Patient: NATALYA MCBRIDE(Age): [birth year]72y) Med Rec#: [id number] Sex: M Site Loc: Ht / Wt: (cm)/ (kg) Pt. Loc: Study Date: 07/07/2017 Pt. Type: Tape: Referring: Yuan Retana Reading: Yifan Perez MD ([id number]) Performing: Yifan Perez MD ([id number]) Diagnosis: SUMMARY: 1. [facility] [...] Hypokinetic Mid-Posterolateral Hypokinetic Mid-Inferior Hypokinetic Mid-Inferoseptal Hypokinetic [place]-Septal Hypokinetic [place]-Anterior Hypokinetic [place]-Lateral Hypokinetic [place]-Inferior Hypokinetic [place]-Tip Not Seen This report has been electronically sign ed by: _ Yifan Perez MD 07/08/2017 12:25:18 Images reviewed and interpretation elvie hwang [facility] Cardiac Ultrasound Laboratory Unknown ECHO ORDERABLES documented in this encounter Visit Diagnoses Not on filedocumented in this encounter Care Teams Casino Slot Supervisor Relationship Specialty Start Date End Date Lovely Vicente MD PCP - General 04/16/[address] [place] [address] documented as of this encounter
--- OUTSIDE RECORDS SUMMARY | 2022-04-17 08:27 | XMS_ITS | Encounter Summary ---
:1945 Author Organization [place] [address] Care Team Providers Name Role Phone Lovely Vicente MD Primary Care Provider Reason for Referral Consultation (Routine) - Closed Specialty Diagnoses / Referred By Contact Referred To Contact Procedures Cardiac Rehabilitation Diagnoses S/P CABG x 3 Yuan Webber, Cardiac Rehab, [address] [place] CARDIOTHORACIC [address] [place] [address] Referral ID Status Reason Start Date Expiration Date Visits V isits Requested Authorized [id number] Closed Consult, 07/14/2017 01/10/2018 36 36 Test & Treat Reason for Visit Auth/Cert Specialty Diagnoses / Procedures Referred By Contact Refer red To Contact Diagnoses STEMI (ST elevation myocardial infarction) NSTEMI STEMI Procedures CARDIAC CATHETERIZATION NAYE IPI Referral ID Status Reason Start Date Expiration Date Visits Requ ested Visits Authorized [id number] 1 1 Encounter Details Date Type Department Care Team Description 07/05/2017 - Hospital Encounter Cardiac Special Daphne Shahid MD [facility] [place] [address] Non-ST elevation myocardial infarction ( NSTEMI); 07/14/2017 Care Unit Yuan Preciado MD [facility] [place] [address] S/P CABG x 3 [place] [id number] Social History Tobacco Use Types Packs/Day Years [...] 72 y.o. Birthdate: 1945 Language: Citizen Of [place] Race: White Ethnicity: Not nor Admit Date: [...] @ 1:20p Patient to follow-up with Manager Managed Backup Services/heart failure team in one week. An appointment will be made for you. You may call [phone] Patient to follow-up with Cardiac Surgery, Dr. Yuan Webber, in ~ 4 weeks with CXR, EKG. Inpatient Provider Contact Information: [facility] [place] [facility] [phone] FAX [phone] Discharge Diagnoses (Hospital Problems) Primary Diagnoses: CAD [...] by Yuan Webber MD at [facility] MAIN OR ??? PRO CABG, ARTERY-VEIN, TWO N/A 07/07/2017 @CABG, TWO VENOUS GRAFTS & ARTERIAL GRAFT (WRVU 7.93) performed by Yuan Webber MD at [facility] MAIN OR ??? PRO COLONOSCOPY, REMV LESN, SNARE 01/16/2014 COLONOSCOPY, POLYPECTOMY, REMOVAL LESION BY SNARE performed by Nohemi Jaimes MD at [facility] ENDOSCOPY ??? PRO ENDOSCOPY W/VIDEO-ASST VEIN HARVEST, CABG Right 07/07/2017 ENDOSCOPIC HARVEST VEIN(S) FOR CABG (WRVU 0.31) performed by Yuan Webber MD at [facility] MAIN OR ??? PRO THYROIDECTOMY 03/28/2013 THYROIDECTOMY, TOTAL OR COMPLETE performed by Manny Mcknight MD at [facility] MAIN OR Prior To Admission Medications Prescriptions Prior to Admission Medication Sig Dispense Refill Last Dose ??? levothyroxine (SYNTHROID) 175 mcg Tablet Take 1 tablet by mouth daily. 90 tablet 3 07/05/2017 [id number] ??? ascorbic acid, vitamin C, (VITAMIN C) [...] not take or discontinue any prescription or jolm-flc-qefqmyi medications without asking your doctor or pharmacist [...] have your insulin doses adjusted. [facility] Endocrine clinic office [...] Yuan Webber and/or the Cardiac Surgery Physician Inspector Aligning Team may be reached at . Weight: [...] Dr. Yuan Webber. You may use a [place] Track or treadmill but avoid any pulling [...] friends, go to a movie, go to sikh, etc. Heavy activities: No hunting, skiing, jogging, snow shoveling, snowmobiling, lawn mowing, swimming, golf or tennis until after your return appointment with the surgeon. Do not ride motorcycles, [employer]'s tractors or horses. Avoid the use [...] @ 1:20p Patient to follow-up with Manager Managed Backup Services/heart failure team in one week. Appointment will be made for you. You may call [phone] Patient to follow-up with Cardiac Surgery, Dr. Yuan Webber, in ~ 4 weeks with CXR, EKG. Cardiac Rehabilitation: Gregory Hoang was seen today regarding participation in the outpatient Phase 2 Cardiac Rehabilitation at [facility]. The patient agrees to a referral to this program. The referral will be sent at discharge and the patient should be contacted by the Program within 1- 2 weeks from discharge. ?? Future Appointments and Orders Future Appointments Provider Department Dept Phone 09/07/2017 3:00 PM LAB, THREE L Lab 3L [facility] [phone] 09/07/2017 4:00 PM Luz Prescott MD Endocrinology at [place] [phone] Future Orders Complete By Expires EKG 12 Lead [EKG1 Custom] 08/14/2017 02/13/2018 Process Instructions: Scheduling Instructions: Questions: Which location will this be performed?: [place] Is a rhythm strip needed?: No If EKG Reason is Pre-op Evaluation, indicate diagnosis for surgery.: XR Chest PA & Lateral (Generic) [10956 [id number] Custom] 08/14/2017 02/13/2018 Process Instructions: Scheduling Instructions: Questions: Where will study be performed?: [place] [facility] Portable exam?: Reason for exam and clinical history: CABG x 3 Other pertinent information: Stat read required?: Date of injury if applicable: Requested Time: Referral to Cardiac Rehab [EWH280 Custom] As directed Process Instructions: If no progress note charted, please enter Clinical details in comments. Scheduling Instructions: Questions: My question or request is: s/p CABG. Cardiac rehab at [facility] Referral to Home Health - at DISCHARGE [[id number] CPT(R)] As directed Process Instructions: Scheduling Instructions: Comments: DOCUMENTATION FOR VNA SERVICES (INCLUDING THOSE PATIENTS WITH MEDICARE COVERAGE REQUIRING HOME VNA SERVICES AND/OR HOSPICE SERVICES) PATIENT'S LOCATION: Gregory Hoang [address] [place] [address] [place] [address] (home) Telephone Information: Industrial Hygiene Technician's Name: self In discussion with the attending physician, it is certified that this patient is under their care and that they, or a Nurse Practitioner, or Physician Inspector Aligning who is working directly with them, had [...] AGENCY: [facility] ([facility] [employer] [place] [employer]-is in [place]) PHONE: [phone] FAX: [phone] RN orders: Cardiopulmonary assessment, incisional assessment, assess vital signs, assessment of rehab progress, medication management and effectiveness, home safety evaluation. Please draw INR if indicated and send result to:Dr Vicente [phone] PT ORDERS: Continue rehab for endurance, gait stability and strength with mobility and transfers. Home safety evaluation. Home exercise program if appropriate. Start of Care Date:24-48 hours after discharge SPECIAL INSTRUCTIONS: For any follow up questions, needs, or issues please call the Cardiac Surgery Office at [phone] FOR MEDICARE ONLY: (please delete this section [...] OR AFTER 07/17/2017 Signed: Martha Teague APRN [facility] [place]iac [place] [facility] [phone] FAX [phone] Date: 07/14/2017 CC: MD Ivania Cr Betsy, PA [address] [place] [phone] documented in this encounter Discharge Instructions Discharge [...] have your insulin doses adjusted. [facility] Endocrine clinic office [...] not take or discontinue any prescription or agca-kqu-qlknwms medications without asking your doctor or pharmacist [...] juice or regular (not diet) soda 6 [employer] small box of raisins 4 glucose [...] have your insulin doses adjusted. [facility] Endocrine clinic office [...] Yuan Webber and/or the Cardiac Surgery Physician Inspector Aligning Team may be reached at . ?? [...] Dr. Yuan Webber. You may use a [place] Track or treadmill but avoid any pulling [...] friends, go to a movie, go to sikh, etc. ?? Heavy activities: No hunting, skiing, jogging, snow shoveling, snowmobiling, lawn mowing, swimming, golf or tennis until after your return appointment with the surgeon. Do not ride motorcycles, [employer]'Take the Interview tractors or horses. Avoid the use of [...] 1:20p ?? Patient to follow-up with Manager Managed Backup Services/heart failure team in one week. An appointment has been made for you, you can call [phone] ?? Patient to follow-up with Cardiac Surgery, Dr. Yuan Webber, in ~ 4 weeks with CXR, EKG. ? Cardiac Rehabilitation: Gregory Hoang??was seen today regarding participation in the outpatient Phase 2 Cardiac Rehabilitation at [facility]. ?? The patient agrees to a referral to this program.? The referral will be sent at discharge and the patient should be contacted by the Program within 1- 2 weeks from discharge. ? Future Appointments and Orders Future Appointments Provider Department Dept Phone ?? 09/07/2017 3:00 PM LAB, THREE L Lab 3L [facility] [phone] ?? 09/07/2017 4:00 PM Luz Prescott MD Endocrinology at [place] [phone] Future Orders Complete By Expires ?? EKG 12 Lead [EKG1 Custom] 08/14/2017 02/13/2018 ?? Process Instructions: ? Scheduling Instructions: ? Questions: ? Which location will this be performed?: [place] ?? Is a rhythm strip needed?: No ?? If EKG Reason is Pre-op Evaluation, indicate diagnosis for surgery.: ?? XR Chest PA & Lateral (Generic) [[id number] Custom] 08/14/2017 02/13/2018 ?? Process Instructions: ? Scheduling Instructions: ? Questions: ? Where will study be performed?: [facility] ?? Portable exam?: ?? Reason for exam and clinical history: CABG x 3 ?? Other pertinent information: ?? Stat read required?: ?? Date of injury if applicable: ?? Requested Time: ?? Referral to Cardiac Rehab [TLS330 Custom] As directed ? Process Instructions: ?? If no progress note charted, please enter Clinical details in comments. ?? Scheduling Instructions: ? Questions: ? My question or request is: s/p CABG. Cardiac rehab at [facility] ? Arrangements for VNA/home care: As [...] 07/14/2017 2:34 PM EST The patient/sales representative health insurance has been provided a list of Home Health Agencies/DME vendors which serve their preferred geographic area. A letter describing our affiliations was reviewed with them and theywere educated about their right to choose where referrals are placed. Patient requests referral to [facility] PHONE: [phone] FAX: [phone] Expected date of discharge: 07/14 Referral routed to the Traveling Representative for matching with agency/vendor and to [...] have your insulin doses adjusted. [facility] Endocrine clinic office Kathie Carrera APRN [facility] Endocrinology Diabetes Management Pager [phone] minutes of this 35 minute visit was spent with the patient in counseling on diabetes and treatment plan, reviewing all glucose and insulin data as well as relevant laboratory results with the patient, and coordination of care on the inpatient unit including nursing and primary team. Zulma Andres, RN - 07/14/2017 10:30 AM EST The patient/sales representative health insurance has been provided a list of Home Health Agencies/DME vendors which serve their preferred geographic area. A letter describing our affiliations was reviewed with them and theywere educated about their right to choose where referrals are placed. Patient requests referral to : [facility]man[facility] Munguia ([facility] [place] [employer]-is in [place] PHONE: [phone] FAX: [phone]. Expected date of discharge: 07/14/17 Referral routed to the Traveling Representative for matching with agency/vendor and to [...] hours. If BG remains greater than 240, qqjytm81 units (no more than three times) &??call [...] to follow Katerin Azul APRN [facility] Endocrinology Diabetes Management Pager [phone] minutes of this 25 minute visit [...] of infiltration/extravasation Discussed plan of care with TONSORIAL ARTIST and RN. Elevate exrtemity and apply intermittent Warm compresses. Name of MD contacted Dr. Shaw Brown 07/13/2017 @ 0696 Name of RN contacted Ale Rangel RN Name of Pharmacist if consulted NA Name of Plastics MD ( if consulted) NA (Mandatory photo for infiltrations/ extravasations scoring a stage 2 or greater, but recommended forstage 1)( include measuring tape and identifier in the photo) CLAIMS ACCOUNT SPECIALIST CARING FOR THIS PATIENT WILL CONTINUE [...] measuring tape and identifier in the photo) CLAIMS ACCOUNT SPECIALIST CARING FOR THIS PATIENT WILL CONTINUE [...] regard to both infiltrates addressed by this ghost writer.All of Mr. Hoang's responses were entirely appropriate. Images of infiltrates attached here. Martha Sharp APRN - 07/13/2017 8:01 AM EST Cardiac Surgery Progress Note: ID: [id number] 72 year old male POD#6 s/p CABGx3 [...] I have met with the patient/sales representative health insurance to discuss discharge planning needs. I have provided the [facility], Office of Care Management letter from the Environmental Epidemiologist pertaining to rehab referrals. I have also provided a letter describing our affiliations within the [facility] and educated them about their right to choose where referrals are placed. ?? I reviewed the different levels of rehab including SNF, swing, acute and LTAC with the patient/sales representative health insurance. ?? The patient/sales representative health insurance has been provided a list of facilities within their preferred geographic area. ?? I have requested that the patient/sales representative health insurance provide at least three choices for referral. ?? The patient/sales representative health insurance have requested referrals to: ?? 1. . ?? 2. [facility] ?? 3. More to be entered ?? Expected date of discharge: 07/14 Note routed to Traveling Representative who will communicate referrals to facilities and [...] hours. If BG remains greater than 240, wbkylx46 units (no more than three times) & [...] hours. If BG remains greater than 240, jhocdb53 units (no more than three times) & call for new basal insulin orders. ??If less than 240 after two hours, give no insulin and resume prior schedule. Will continue to follow Katerin Patel. STACIE Azul [facility] Endocrinology Diabetes Management Pager [phone] 20 minutes of this 35 minute visit was spent with the patient in counseling on diabetes and treatment plan, reviewing all glucose and insulin data as well as relevant laboratory results with the patient, and coordination of care on the inpatient unit including nursing and primary team. Makayla Stevenson APRN - 07/12/2017 9:52 AM EST Cardiac Surgery Progress Note: ID: [id number] 72 year old male POD#5 s/p CABGx3 [...] 07/11/2017 7:18 PM EST Patient arrived from [facility]. VSS. MSI dressing pulled off [...] hours. If BG remains greater than 240, akebrc60 units (no more than three times) & [...] AM EST Cardiac Surgery Progress Note: ID: [id number] 72 year old male POD#4 s/p CABGx3 [...] please consider alternative means of nutrition support. IVVIAN Butt Nell Ontiveros RN - 07/11/2017 7:15 [...] hours. If BG remains greater than 240, doydzh52 units (no more than three times) & [...] AM EST Cardiac Surgery Progress Note: ID: [id number] 72 year old male POD#3 s/p CABGx3 [...] Gas) No results found for: PHART, PO2ART, PRO8GKZ Assessment/Plan: 72 year old male POD#3 s/p [...] Encounter Note Patient Name: Gregory Hoang : [id number] MR#: [id number] Admit Date: 07/05/2017 4:20 PM Hospital Day 4 days Narrative: Patient was sitting in chair, hugging heart pillow, opened his eyes, nodding to come into room Assessment: Patient was sleepy. Intervention and Outcome: Introduced maritime pilot services and patient reached his hand out in appreciation. Follow-up: Running Instructor remains available for support. Time in Direct [...] AM EST Cardiac Surgery Progress Note: ID: [id number] 72 year old male POD#2 s/p CABGx3 [...] of Cardiac Surgery Date: 07/09/2017 Magnolia Santiago [facility] - 07/09/2017 1:33 AM EST [...] when IABP d/c'ed. Gretchen Carolina, PT Pager [phone] Maddison Cee PA - 07/08/2017 11:27 AM EST Cardiac Surgery Progress Note: ID: [id number] 72 year old male POD#1 s/p CABGx3 [...] unit. NICK SEGAL MD 07/08/2017 Jay Munoz [facility] - 07/08/2017 4:33 AM EST [...] PM EST Cardiovascular Critical Care Attending Note rGegory Hoang 1945 Age: 72 y.o. PCP: Lovely [...] in place in R femoral. No hematoma. RUBBER TIRE AND TUBES SUPERVISOR- Intact Psych- Anxious Skin- Dry, no [...] intact. IABP in place in R femoral. RUBBER TIRE AND TUBES SUPERVISOR- Intact Psych- Anxious Skin- Dry, no [...] note for details. DAPHNE SHAHID MD Pager [phone] Jet Mckenna MD - 07/05/2017 6:48 PM EST Preliminary Cardiac Catheterization Procedure Note: Procedure(s) performed: Left heart cath, IABP insertion Access: Right TRANSPORTATION DEPARTMENT SUPERVISOR-->8fr IABP A time-out was conducted prior [...] Day 0 days ) Responsible Attending: Daphne Sahhid MD PCP: Lovely Vicente MD PCP#: [phone] Patient Active Problem List Diagnosis Code ??? [...] medical lab director urgently for ongoing STEMI. [facility] Labs: INR 1.0 WBC 5.88 Hgb [...] - ISS - hold metformin - f/u [facility] #Home Meds - continue levothyroxine 175mcg - CPAP at night # Routine - DVT PPx: heparin drip - Diet: NPO - Code Status: FULL - Dispo: [facility] Cedric Bey MD Internal Medicine, PGY-2 Cardiology S1, Team Pager # [phone] CARDIOLOGY ATTENDING NOTE Patient: Gregory Hoang Date [...] amenable for PCI. DAPHNE SHAHID MD Pager [phone] documented in this encounter Miscellaneous Notes Consult Note - Daphne Shahid MD - 07/14/2017 11:46 AM EST Heart Failure Service Inpatient Consult Note Gregory Hoang Date of : 1945 Age: 72 y.o. Today's date: 07/14/17 PCP: Lovely Vicente MD OPERATIONS AGENT: None Place of Service: [facility] Reason for Consult: Dr. Webber has requested [...] by Yuan Webber MD at [facility] MAIN OR ??? PRO CABG, ARTERY-VEIN, TWO N/A 07/07/2017 @CABG, TWO VENOUS GRAFTS & ARTERIAL GRAFT (WRVU 7.93) performed by Yuan Webber MD at [facility] MAIN OR ??? PRO COLONOSCOPY, REMV LESN, SNARE 01/16/2014 COLONOSCOPY, POLYPECTOMY, REMOVAL LESION BY SNARE performed by Nohemi Jaimes MD at [facility] ENDOSCOPY ??? PRO ENDOSCOPY W/VIDEO-ASST VEIN HARVEST, CABG Right 07/07/2017 ENDOSCOPIC HARVEST VEIN(S) FOR CABG (WRVU 0.31) performed by Yuan Webber MD at [facility] MAIN OR ??? PRO THYROIDECTOMY 03/28/2013 THYROIDECTOMY, TOTAL OR COMPLETE performed by Manny Mcknight MD at [facility] MAIN OR Outpt Meds: Current Outpatient [...] following studies: EKG 07/14/17: NSR 75 bpm, BEDSPRING ASSEMBLER anterior infarct, LAD CXR 07/11/17: FINDINGS: Sternotomy wires. The patient has been extubated, left chest tube removed, and [place]-Suzi catheter removed since the 07/07/2017 study. Atelectasis [...] was discussed with Zehra. Jaden Kelley MD Exhibit Carpenter Pager [phone] CARDIOLOGY ATTENDING NOTE Patient: Gregory Hoang Date [...] heart failure clinic. DAPHNE SHAHID MD Pager [phone] Plan of Care - Alden Chavarria, FIRE DEPARTMENT MARINE ENGINEER - 07/14/2017 11:35 AM EST Problem: [...] Discharge Disposition: home with assist Alden Chavarria, FIRE DEPARTMENT MARINE ENGINEER Pager: [phone] Inpatient Physical Therapy Problem: Acute Rehab Services [...] sit/sit to supine -- Bed Mobility Goal, [place] Level supervision required -- Bed Mobility Goal, [...] - 3 days -- Gait Training Goal, [place] Level supervision required -- Gait Training Goal, [...] days -- Transfer Training Goal, Activity Type eox-oo-zrrbj/zixya-vl-ixv;cwm-sr-crcwf/rsnuh-dy-isq;toilet -- Transfer Train Goal, [place] Level supervision required -- Transfer Training Goal, [...] keeping present for 2 days per family. Natural Science Curator noted of frustrations, house keeping sent to room. Patient offered showered twice, refused. at bedside, frustrated that shower not complete, informed that patient had refused several times. requesting to see MANAGER CLIENT SUPPORT, paged sent to Martha, will come to bedside (middle of consult). not willing to wait, Martha notified that family had gone home. Encouraged to come for morning rounds a t 8am. Diabetes team at bedside - insulin adjustments made. Call cabello in reach. Continue to monitor. PLAN MOVING FORWARD: Ambulate, dressing changes BID, Please change drsg at 4am per Martha MANAGER CLIENT SUPPORT request. INDIVIDUALIZED FALL PREVENTION INTERVENTIONS: Patient-specific fall [...] levels on the lower side, 60ml of [place] juice given after a FS of 80. [...] 07/13/17 0502 Interdisciplinary Rounds/Family Conf Participants case operator;dietitian/nutrition services;nursing;occupational therapy;patient;pharmacy;physical therapy;physician Plan of Care - [...] Anticipated Discharge Disposition: home with assist Pager: [phone] CLARISSA SEGAL, PT 07/12/2017 Physical Therapy Rehabilitation [...] to sit/sit to supine Bed Mobility Goal, [place] Level supervision required Bed Mobility Goal, Additional Goal adheres to psternal precautions for transfer Goal: Gait Training Goal Stand Alone Therapy Goal Outcome: Ongoing (Interventions Implemented as Appropriate) 07/12/17 1225 Gait Training Goal Gait Training Goal, Date Established 07/12/17 Gait Training Goal, Time to Achieve 2 - 3 days Gait Training Goal, [place] Level supervision required Gait Training Goal, Assist [...] 3 days Transfer Training Goal, Activity Type qbh-ui-lnhqw/jnyde-uh-pwr;zyk-ta-htafg/anjrl-my-dad;toilet Transfer Train Goal, [place] Level supervision required Transfer Training Goal, Additional Goal adheres to sternal precautions during transfer Consult Note - Octavia Vaughn RN - 07/12/2017 10:50 AM EST [facility] CARDIAC REHABILITATION Gregory Hoang was seen today regarding participation in the outpatient Phase 2 Cardiac Rehabilitation at [facility]. The patient agrees to a referral [...] IV site, amio to other piv and PETROLOGIST at bedside to help assess, IV removed. [...] Outcome: Ongoing (Interventions Implemented as Appropriate) 07/11/17199907/11/17200907/12/17 [facility] Daily Care Interventions Self-Care Promotion -- [...] he stood and marched in place. [place] weak, wanting to sit back down. Remained [...] Outcome: Ongoing (Interventions Implemented as Appropriate) 07/05/17 1796 Mutuality/Individual Preferences What Anxieties, Fears or Concerns [...] Health/Prescription Coverage: Primary Insurance: MEDICARE Secondary Insurance: uTaP [place] Prescription Coverage: yes Preferred Pharmacy: [facility] [place] Other: none Primary Care Provider: Lovely Vicente MD [phone] Patient/Caregiver Goals of Treatment:live and get my breath back Potential Needs for Transition of Care: [facility] Home Health: NA DME: TBD Dialysis: na Community Resources: available Transportation: yes Other: none Anticipated Barriers to Discharge/Special Considerations: none Plan: Likely SNF Rehab before home A member of the Care Management team will continue to monitor progress, follow for continuity of care and assist with transition of care planning. ERLIN Weiss Pager: [phone] Consult Note - Katerin Azul RN - [...] potential to d/c gtt and start CF. joint terminal attack controller diabetes care: Medications - Outpatient treatment regimen recommendations pending based on the hospital course. Monitoring - continue BG tid ac & hs Diet - low fat/low carb diet Exercise - weight-bearing exercise 30 min/day, as tolerated Thank you for allowing us to provide care for your patient W/E coverage, Dr. Jeane Tatum, pager [phone] Katerin Patel. STAC[facility] Diabetes Management Pager [phone] Plan of Care - Stephanie Godoy RN [...] - 07/07/2017 6:27 PM EST [facility] Operative Note Patient Name: Gregory Hoang : [id number] MR#: [id number] Case Date: 07/07/2017 Surgeon: Surgeon(s) and Role: * Yuan Webber MD - Primary * Michael Drake PA - Physician Inspector Aligning * Linda Flores PA - Physician Inspector Aligning Preoperative diagnosis: 3VD Postoperative diagnosis: CAD, severe [...] Operative Note Patient Name: Gregory Hoang : [id number] MR#: [id number] Case Date: 07/07/2017 Surgeon: Surgeon(s) and Role: * Yuan Webber MD - Primary * Michael Drake PA - Physician Inspector Aligning * Linda Flores PA - Physician Inspector Aligning Preoperative diagnosis: 3VD Postoperative diagnosis: CAD, severe [...] code status: Full Code Katty Davidjose, MS3 [facility] at [facility] Cardiology S1 (Pager [phone]) Plan of Care - Emelia Ibarra RN [...] [facility] ENDOSCOPY ??? PRO THYROIDECTOMY 03/28/2013 THYROIDECTOMY, TOTAL OR COMPLETE performed by Manny Mcknight MD at [facility] MAIN OR Social History: Social History [...] with other involved physicians Yuan Webber MD [phone] Med Student Progress Note - Katty Hahn [...] - Dispo: CVCC Katty Hahn, M3 [facility] Cardiology S1 (Pager [phone]) Plan of Care - Stephanie Godoy RN [...] Dolan MD [facility] [address] [place], [place] [address] (Wo lissa) 05/28/2022 Laboratory Appointment Lab 05/28/2022 Office Visit Cardiology Zulma Dolan MD [facility] [place] [address] Liz Poole PA [facility] [place] [address] 06/10/2022 Office Visit Dermatology Laura Scherer MD [facility] [address] [place], [place] [address] (Wo rk) Scheduled Orders Name [...] procedure are i n the results section. FLAME CUTTING SUPERVISOR SCAN 07/15/2017 12:00 Res ults for [...] 4:00 Results f or this ([facility]/CG) AM EST procedure are i n the [...] 7:40 Results f or this ([facility]/CGP) PM EST procedure [...] AND SCREEN Routine 07/06/2017 12:00 ([facility]/CGP/SHANDA) PM EST APTT [...] 8:10 Results f or this ([facility]/CGP) AM EST procedure [...] 8:20 Results f or this ([facility]/CGP) PM EST procedure [...] 4:55 Results f or this ([facility]/CGP) PM EST procedure [...] 2017 EXAMINATION: XR CHEST PA AND LATERAL (ZiftitIC) CLINICAL HISTORY: CABG x 3 TECHNIQUE: PA [...] Teague APRN IMG DX ORDERABLES SCAN DOC: FLAME CUTTING SUPERVISOR (07/15/2017 12:00 AM EST) Narrative 07/15/2017 [...] Signature POC Glucose 186 65 - 199 [facility] mg/dL [facility] LABORATORY Comment: Supplemental ranges: [...] City/[facility]/[place] [address] POCT Glucose (07/14/2017 7:52 AM EST) athologist Signature POC Glucose 126 65 - 199 [facility] mg/dL [facility] Comment: Supplemental ranges: <140 mg/dL before meals <180 mg/dL all other times of the day Specimen Anatomical Collection Method Collection Time Receive d Time (Source) Location / / Volume Laterality Blood specimen 07/14/2017 7:52 AM 017 7:52 (specimen) EST AM EST Yuan Webber MD POINT OF CARE TEST ORDERABLE S Performing Organization Address City/State/[place] [address] (ABNORMAL) Prothrombin Time (07/14/2017 [...] City/[facility]/[place] [address] Potassium (07/14/2017 4:46 AM EST) athologist Signature Potassium 4.3 3.5 - 5.0 [facility] mmol/L [facility] Comment: Please note: ??Patients [...] City/[facility]/[place] [address] POCT Glucose (07/14/2017 4:34 AM EST) athologist Signature POC Glucose 115 65 - 199 [facility] mg/dL [facility] Comment: Supplemental ranges: [...] City/State/ZIP Code Phon e Number [place] [id number] POCT Glucose (07/13/2017 11:33 PM EST) athologist Signature POC Glucose 132 65 - 199 [place] mg/dL [facility] Comment: Supplemental ranges: <140 mg/dL before meals <180 mg/dL all other times of the day Specimen Anatomical Collection Method Collection Time Receive d Time (Source) Location / / Volume Laterality Blood specimen 07/13/2017 11:33 7 (specimen) PM EST 11:33 PM EST Yuan Webber MD POINT OF CARE TEST ORDERABLE S Performing Organization Address City/State/ZIP Code Phon e Number [address] POCT Glucose (07/13/2017 9:25 PM EST) athologist Signature POC Glucose 121 65 - 199 [place] mg/dL [facility] Comment: Supplemental ranges: <140 mg/dL before meals <180 mg/dL all other times of the day Specimen Anatomical Collection Method Collection Time Receive d Time (Source) Location / / Volume Laterality Blood specimen 07/13/2017 9:25 PM 017 9:25 (specimen) EST PM EST Yuan Webber MD POINT OF CARE TEST ORDERABLE S Performing Organization Address City/State/ZIP Code Phon e Number [address] POCT Glucose (07/13/2017 4:55 PM EST) athologist Signature POC Glucose 79 65 - 199 [place] mg/dL [facility] Comment: Supplemental ranges: <140 mg/dL before meals <180 mg/dL all other times of the day Specimen Anatomical Collection Method Collection Time Receive d Time (Source) Location / / Volume Laterality Blood specimen 07/13/2017 4:55 PM 017 4:55 (specimen) EST PM EST Yuan Webber MD POINT OF CARE TEST ORDERABLE S Performing Organization Address City/State/[place] [address] POCT Glucose (07/13/2017 11:16 AM EST) athologist Signature POC Glucose 163 65 - 199 [facility] mg/dL [facility] Comment: Supplemental ranges: <140 mg/dL before meals <180 mg/dL all other times of the day Specimen Anatomical Collection Method Collection Time Receive d Time (Source) Location / / Volume Laterality Blood specimen 07/13/2017 11:16 7 (specimen) AM EST 11:16 AM EST Yuan Webber MD POINT OF CARE TEST ORDERABLE S Performing Organization Address City/State/ZIP Code Phon e Number [address] POCT Glucose (07/13/2017 8:07 AM EST) athologist Signature POC Glucose 96 65 - 199 [facility] mg/dL [facility] Comment: Supplemental ranges: <140 mg/dL before meals <180 mg/dL all other times of the day Specimen Anatomical Collection Method Collection Time Receive d Time (Source) Location / / Volume Laterality Blood specimen 07/13/2017 8:07 AM 017 8:07 (specimen) EST AM EST Yuan Webber MD POINT OF CARE TEST ORDERABLE S Performing Organization Address City/State/ZIP Code Phon e Number [address] (ABNORMAL) Prothrombin Time (07/13/2017 [...] Organization Address City/State/[place] [address] (ABNORMAL) Basic Metabolic Panel (non-fasting) (07/13/2017 4:26 AM EST) athologist Signature Glucose Lvl 95 65 - 199 [facility] mg/dL [facility] Estimated GFR 60 >=60 [facility] Comment: The reported eGFR should be multiplied b y 1.2 for patients. The MDRD is not an appropriate measure o f renal function for patients with body mass extremes or in patients with acute kidney failure. http://[employer] [place].awesomize.me/DHnkdep http://Econodata/DHMCnkf Specimen Anatomical Collection Method Collection Time Receive d Time (Source) Location / / Volume Laterality Blood specimen 07/13/2017 4:26 AM 017 4:46 (specimen) EST AM EST Resulting Agency Comment Spec In Lab Makayla Wilson APRN CHEMISTRY ORDERABLES Performing Organization Address City/[facility]/ZIP Code Phon e Number [address] POCT Glucose (07/13/2017 3:52 AM EST) athologist Signature POC Glucose 93 65 - 199 [facility] mg/dL [facility] Comment: Supplemental ranges: [...] City/[facility]/ZIP Code Phon e Number [address] POCT Glucose (07/13/2017 12:21 AM EST) athologist Signature POC Glucose 80 65 - 199 [place] mg/dL [facility] Comment: Supplemental ranges: [...] City/[facility]/[place] [address] POCT Glucose (07/12/2017 8:22 PM EST) athologist Signature POC Glucose 119 65 - 199 [place] mg/dL [facility] Comment: Supplemental ranges: <140 mg/dL before meals <180 mg/dL all other times of the day Specimen Anatomical Collection Method Collection Time Receive d Time (Source) Location / / Volume Laterality Blood specimen 07/12/2017 8:22 PM 017 8:22 (specimen) EST PM EST Yuan Webber MD POINT OF CARE TEST ORDERABLE S Performing Organization Address City/State/ZIP Code Phon e Number [address] POCT Glucose (07/12/2017 4:02 PM EST) athologist Signature POC Glucose 114 65 - 199 [place] mg/dL [facility] Comment: Supplemental ranges: <140 mg/dL before meals <180 mg/dL all other times of the day Specimen Anatomical Collection Method Collection Time Receive d Time (Source) Location / / Volume Laterality Blood specimen 07/12/2017 4:02 PM 017 4:02 (specimen) EST PM EST Yuan Webber MD POINT OF CARE TEST ORDERABLE S Performing Organization Address City/State/ZIP Code Phon e Number [address] POCT Glucose (07/12/2017 11:28 AM EST) athologist Signature POC Glucose 164 65 - 199 [facility] mg/dL [facility] Comment: Supplemental ranges: <140 mg/dL before meals <180 mg/dL all other times of the day Specimen Anatomical Collection Method Collection Time Receive d Time (Source) Location / / Volume Laterality Blood specimen 07/12/2017 11:28 7 (specimen) AM EST 11:28 AM EST Yuan Webber MD POINT OF CARE TEST ORDERABLE S Performing Organization Address City/State/ZIP Code Phon e Number [address] POCT Glucose (07/12/2017 7:34 AM EST) athologist Signature POC Glucose 109 65 - 199 [facility] mg/dL [facility] Comment: Supplemental ranges: <140 mg/dL before meals <180 mg/dL all other times of the day Specimen Anatomical Collection Method Collection Time Receive d Time (Source) Location / / Volume Laterality Blood specimen 07/12/2017 7:34 AM 017 7:34 (specimen) EST AM EST Yuan Webber MD POINT OF CARE TEST ORDERABLE S Performing Organization Address City/State/[place] [address] (ABNORMAL) Basic Metabolic Panel (non-fasting) (07/12/2017 4:11 AM EST) P athologist Signature Glucose Lvl 92 65 - 199 [facility] mg/dL [facility] [...] HOSPITAL LABORATORY Estimated GFR 58 (L) >=60 [facility] Comment: The reported eGFR should be multiplied b y 1.2 for patients. The MDRD is not an appropriate measure o f renal function for patients with body mass extremes or in patients with acute kidney failure. http://Mob[employer] [place].awesomize.me/DHnkdep http://M[employer] [place].awesomize.me/DHMCnkf Specimen Anatomical Collection Method Collection Time Receive d Time (Source) Location / / Volume Laterality Blood specimen 07/12/2017 4:11 AM 017 8:57 (specimen) EST AM EST Resulting Agency Comment Spec In Lab Makayla Wilson APRN CHEMISTRY ORDERABLES Performing Organization Address City/State/[place] [address] (ABNORMAL) Prothrombin Time (07/12/2017 [...] [place] STACIE HEMATOLOGY ORDERABLES Performing Organization Address City/[facility]/[place] [address] Potassium (07/12/2017 4:11 AM EST) athologist Signature Potassium 3.8 3.5 - 5.0 [facility] mmol/L [facility] Comment: Please note: ??Patients [...] Agency Comment Spec In Lab Makayla [place] PARKING ASSISTANT CHEMISTRY ORDERABLES Performing Organization Address City/[facility]/[place] [address] POCT Glucose (07/12/2017 4:10 AM EST) athologist Signature POC Glucose 90 65 - 199 [facility] Comment: Supplemental ranges: <140 mg/dL before meals <180 mg/dL all other times of the day Specimen Anatomical Collection Method Collection Time Receive d Time (Source) Location / / Volume Laterality Blood specimen 07/12/2017 4:10 AM 017 4:10 (specimen) EST AM EST Yuan Webber MD POINT OF CARE TEST ORDERABLE S Performing Organization Address City/State/ZIP Code Phon e Number [address] POCT Glucose (07/11/2017 11:57 PM EST) athologist Signature POC Glucose 98 65 - 199 [facility] Comment: Supplemental ranges: <140 mg/dL before meals <180 mg/dL all other times of the day Specimen Anatomical Collection Method Collection Time Receive d Time (Source) Location / / Volume Laterality Blood specimen 07/11/2017 11:57 7 (specimen) PM EST 11:57 PM EST Yuan Webber MD POINT OF CARE TEST ORDERABLE S Performing Organization Address City/State/ZIP Code Phon e Number [address] POCT Glucose (07/11/2017 8:32 PM EST) athologist Signature POC Glucose 146 65 - 199 [facility] Comment: Supplemental ranges: <140 mg/dL before meals <180 mg/dL all other times of the day Specimen Anatomical Collection Method Collection Time Receive d Time (Source) Location / / Volume Laterality Blood specimen 07/11/2017 8:32 PM 017 8:32 (specimen) EST PM EST Yuan Webber MD POINT OF CARE TEST ORDERABLE S Performing Organization Address City/State/[place] [address] XR Chest PA & [...] e xtubated, left chest tube removed, and [place]-Suzi catheter removed since the study. Atelectasis at [...] e xtubated, left chest tube removed, and [place]-Suzi catheter removed since the study. Atelectasis at [...] - 199 [place] mg/dL [facility] Comment: Supplemental ranges: <140 mg/dL before meals <180 mg/dL all other times of the day Specimen Anatomical Collection Method Collection Time Receive d Time (Source) Location / / Volume Laterality Blood specimen 07/11/2017 4:05 PM 017 4:05 (specimen) EST PM EST Yuan Webber MD POINT OF CARE TEST ORDERABLE S Performing Organization Address City/State/ZIP Code Phon e Number [address] POCT Glucose (07/11/2017 11:55 AM EST) athologist Signature POC Glucose 176 65 - 199 [place] mg/dL [facility] Comment: Supplemental ranges: [...] City/[facility]/ZIP Code Phon e Number [address] POCT Glucose (07/11/2017 7:53 AM EST) athologist Signature POC Glucose 189 65 - 199 [place] mg/dL [facility] Comment: Supplemental ranges: <140 mg/dL before meals <180 mg/dL all other times of the day Specimen Anatomical Collection Method Collection Time Receive d Time (Source) Location / / Volume Laterality Blood specimen 07/11/2017 7:53 AM 017 7:53 (specimen) EST AM EST Yuan Webber MD POINT OF CARE TEST ORDERABLE S Performing Organization Address City/State/[place] [address] POCT Glucose (07/11/2017 4:22 AM EST) athologist Signature POC Glucose 151 65 - 199 [place] mg/dL [facility] Comment: Supplemental ranges: [...] City/[facility]/[place] [address] Potassium (07/11/2017 2:20 AM EST) athologist Signature Potassium 4.5 3.5 - 5.0 [facility]/L [facility] Comment: Please note: ??Patients [...] City/[facility]/[place] [address] POCT Glucose (07/11/2017 12:17 AM EST) athologist Signature POC Glucose 162 65 - 199 [place] mg/dL [facility] Comment: Supplemental ranges: [...] City/[facility]/[place] [address] POCT Glucose (07/10/2017 8:47 PM EST) athologist Signature POC Glucose 191 65 - 199 [place] mg/dL [facility] Comment: Supplemental ranges: <140 mg/dL before meals <180 mg/dL all other times of the day Specimen Anatomical Collection Method Collection Time Receive d Time (Source) Location / / Volume Laterality Blood specimen 07/10/2017 8:47 PM 017 8:47 (specimen) EST PM EST Yuan Webber MD POINT OF CARE TEST ORDERABLE S Performing Organization Address City/State/[place] [address] POCT Glucose (07/10/2017 4:06 PM EST) athologist Signature POC Glucose 131 65 - 199 [place] mg/dL [facility] Comment: Supplemental ranges: [...] City/[facility]/[place] [address] POCT Glucose (07/10/2017 3:08 PM EST) athologist Signature POC Glucose 151 65 - 199 [place] mg/dL [facility] Comment: Supplemental ranges: <140 mg/dL before meals <180 mg/dL all other times of the day Specimen Anatomical Collection Method Collection Time Receive d Time (Source) Location / / Volume Laterality Blood specimen 07/10/2017 3:08 PM 017 3:08 (specimen) EST PM EST Yuan Webber MD POINT OF CARE TEST ORDERABLE S Performing Organization Address City/State/[place] [address] POCT Glucose (07/10/2017 2:25 PM EST) athologist Signature POC Glucose 146 65 - 199 [facility] mg/dL [facility] Comment: Supplemental ranges: <140 mg/dL before meals <180 mg/dL all other times of the day Specimen Anatomical Collection Method Collection Time Receive d Time (Source) Location / / Volume Laterality Blood specimen 07/10/2017 2:25 PM 017 2:25 (specimen) EST PM EST Yuan Webber MD POINT OF CARE TEST ORDERABLE S Performing Organization Address City/State/ZIP Code Phon e Number [address] POCT Glucose (07/10/2017 1:23 PM EST) P athologist Signature POC Glucose 166 65 - 199 [place] mg/dL [facility]ORY Comment: Supplemental ranges: [...] City/[facility]/ZIP Code Phon e Number [address] POCT Glucose (07/10/2017 11:52 AM EST) P athologist Signature POC Glucose 157 65 - 199 [place] mg/dL [facility]ORY Comment: Supplemental ranges: [...] City/[facility]/[place] [address] POCT Glucose (07/10/2017 11:01 AM EST) P athologist Signature POC Glucose 158 65 - 199 [place] mg/dL [facility] Comment: Supplemental ranges: <140 mg/dL before meals <180 mg/dL all other times of the day Specimen Anatomical Collection Method Collection Time Receive d Time (Source) Location / / Volume Laterality Blood specimen 07/10/2017 11:01 7 (specimen) AM EST 11:01 AM EST Yuan Webber MD POINT OF CARE TEST ORDERABLE S Performing Organization Address City/State/ZIP Code Phon e Number [address] POCT Glucose (07/10/2017 9:54 AM EST) athologist Signature POC Glucose 160 65 - 199 [place] mg/dL [facility] Comment: Supplemental ranges: [...] City/[facility]/ZIP Code Phon e Number [address] POCT Glucose (07/10/2017 8:58 AM EST) athologist Signature POC Glucose 183 65 - 199 [place] mg/dL [facility] Comment: Supplemental ranges: <140 mg/dL before meals <180 mg/dL all other times of the day Specimen Anatomical Collection Method Collection Time Receive d Time (Source) Location / / Volume Laterality Blood specimen 07/10/2017 8:58 AM 017 8:58 (specimen) EST AM EST Yuan Webber MD POINT OF CARE TEST ORDERABLE S Performing Organization Address City/State/ZIP Code Phon e Number [address] POCT Glucose (07/10/2017 8:01 AM EST) athologist Signature POC Glucose 173 65 - 199 [facility] mg/dL [facility] Comment: Supplemental ranges: <140 mg/dL before meals <180 mg/dL all other times of the day Specimen Anatomical Collection Method Collection Time Receive d Time (Source) Location / / Volume Laterality Blood specimen 07/10/2017 8:01 AM 017 8:01 (specimen) EST AM EST Yuan Webber MD POINT OF CARE TEST ORDERABLE S Performing Organization Address City/State/ZIP Code Phon e Number [address] POCT Glucose (07/10/2017 7:05 AM EST) athologist Signature POC Glucose 166 65 - 199 [place] mg/dL [facility]ORY Comment: Supplemental ranges: <140 mg/dL before meals <180 mg/dL all other times of the day Specimen Anatomical Collection Method Collection Time Receive d Time (Source) Location / / Volume Laterality Blood specimen 07/10/2017 7:05 AM 017 7:05 (specimen) EST AM EST Yuan Webber MD POINT OF CARE TEST ORDERABLE S Performing Organization Address City/State/ZIP Code Phon e Number [address] POCT Glucose (07/10/2017 6:00 AM EST) athologist Signature POC Glucose 162 65 - 199 [facility] Comment: Supplemental ranges: <140 mg/dL before meals <180 mg/dL all other times of the day Specimen Anatomical Collection Method Collection Time Receive d Time (Source) Location / / Volume Laterality Blood specimen 07/10/2017 6:00 AM 017 6:00 (specimen) EST AM EST Yuan Webber MD POINT OF CARE TEST ORDERABLE S Performing Organization Address City/State/[place] [address] (ABNORMAL) Differential, Automated (07/10/2017 4:28 AM EST) [facility] gist Method Time Signature Neutrophils % 87.9 % [facility] LABORATORY Neutr Abs (ANC) 10.70 (H) 1.70 - [facility] 6.10 [facility] x10(3)/[facility] L LABORATORY Lymphocytes % 3.9 % [facility] LABORATORY Lymphocytes Abs 0.5 (L) 0.9 - 3.2 [facility] x10(3)/[facility] LABORATORY Monocytes % 7.0 % [facility] LABORATORY Monocyte Abs 0.8 0.3 - 0.9 [facility] x10(3)/[facility] LABORATORY Eosinophils % 0.3 % [facility] LABORATORY Eosinophils Abs 0.0 0.0 - 0.4 [facility] x10(3)/[facility] LABORATORY Basophils % 0.2 % [facility] LABORATORY Basophils Abs 0.0 0.0 - 0.1 [facility] x10(3)/[facility] LABORATORY Immature Gran % 0.70 % [...] Organization Address City/State/[place] [address] (ABNORMAL) Hemogram (07/10/2017 4:28 AM EST) Analysis Performed At Patho logist Time Signature WBC 12.2 (H) 4.0 - 9.5 [facility] x10(3)/[facility] LABORATORY RBC 3.31 (L) 4.58 - [facility] 5.54 [facility] x10(6)/[facility] LABORATORY Hemoglobin 9.8 (L) 13.7 - [facility] 16.5 gm/dL [facility] LABORATORY Hematocrit 30.0 (L) 40.5 - [facility] 48.5 % [facility] LABORATORY MCV 90.6 82.9 - [facility] 93.1 fL [facility] LABORATORY MCH 29.6 27.5 - [facility] 32.[address] [facility] MCHC 32.7 32.0 - [facility] 35.7 gm/dL [facility] LABORATORY Platelets 135 (L) 145 - 357 [facility] x10(3)/[facility] LABORATORY RDWSD 50.8 (H) 36.0 - [facility] 45.[address] [facility] LABORATORY RDWCV 15.4 (H) 11.4 - [facility] 13.8 % [facility] LABORATORY MPV 10.0 7.6 - 12.9 [facility] LABORATORY nRBC % Auto 0.0 % [facility] LABORATORY nRBC Abs Auto 0.000 0.000 - [facility] 0.000 [facility] x10(3)/[facility] LABORATORY Specimen Anatomical Collection Method Collection Time Receive d Time (Source) Location / / Volume Laterality Blood specimen 07/10/2017 4:28 AM 017 4:36 (specimen) EST AM EST Resulting Agency Comment Spec In Lab Yuan Webber MD HEMATOLOGY ORDERABLES Performing Organization Address City/State/[place] [address] (ABNORMAL) Basic Metabolic Panel (non-fasting) (07/10/2017 4:28 AM EST) athologist Signature Glucose Lvl 178 65 - 199 [facility] mg/dL [facility] Estimated GFR 60 >=60 [facility] LABORATORY Comment: The reported eGFR should be multiplied b y 1.2 for patients. The MDRD is not an appropriate measure o f renal function for patients with body mass extremes or in patients with acute kidney failure. http://Econodata/DHnkdep http://Econodata/DHMCnkf Specimen Anatomical Collection Method Collection Time Receive d Time (Source) Location / / Volume Laterality Blood specimen 07/10/2017 4:28 AM 017 4:36 (specimen) EST AM EST Resulting Agency Comment Spec In Lab Yuan Webber MD CHEMISTRY ORDERABLES Performing Organization Address City/[facility]/ZIP Code Phon e Number [address] POCT Glucose (07/10/2017 4:26 AM EST) P athologist Signature POC Glucose 176 65 - 199 [facility] mg/dL [facility] LABORATORY Comment: Supplemental ranges: <140 mg/dL before meals <180 mg/dL all other times of the day Specimen Anatomical Collection Method Collection Time Receive d Time (Source) Location / / Volume Laterality Blood specimen 07/10/2017 4:26 AM 017 4:26 (specimen) EST AM EST Yuan Webber MD POINT OF CARE TEST ORDERABLE S Performing Organization Address City/State/[place] [address] (ABNORMAL) POCT Glucose (07/10/2017 3:06 AM EST) P athologist Signature POC Glucose 204 (H) 65 - 199 [facility] LABORATORY Comment: Supplemental ranges: [...] City/[facility]/[place] [address] (ABNORMAL) POCT Glucose (07/10/2017 2:10 AM EST) P athologist Signature POC Glucose 203 (H) 65 - 199 [facility] mg/dL [facility] LABORATORY Comment: Supplemental ranges: [...] City/[facility]/[place] [address] POCT Glucose (07/10/2017 1:09 AM EST) P athologist Signature POC Glucose 196 65 - 199 [facility] mg/dL [facility] LABORATORY Comment: Supplemental ranges: <140 mg/dL before meals <180 mg/dL all other times of the day Specimen Anatomical Collection Method Collection Time Receive d Time (Source) Location / / Volume Laterality Blood specimen 07/10/2017 1:09 AM 017 1:09 (specimen) EST AM EST Yuan Webber MD POINT OF CARE TEST ORDERABLE S Performing Organization Address City/State/[place] [address] POCT Glucose (07/10/2017 12:10 AM EST) P athologist Signature POC Glucose 173 65 - 199 [place] mg/dL [facility] LABORATORY Comment: Supplemental ranges: <140 mg/dL before meals <180 mg/dL all other times of the day Specimen Anatomical Collection Method Collection Time Receive d Time (Source) Location / / Volume Laterality Blood specimen 07/10/2017 12:10 7 (specimen) AM EST 12:10 AM EST Yuan Webber MD POINT OF CARE TEST ORDERABLE S Performing Organization Address City/State/ZIP Code Phon e Number [address] POCT Glucose (07/09/2017 11:01 PM EST) athologist Signature POC Glucose 140 65 - 199 [place] [facility] mg/dL [facility] LABORATORY Comment: Supplemental ranges: [...] City/[facility]/ZIP Code Phon e Number [address] POCT Glucose (07/09/2017 10:05 PM EST) athologist Signature POC Glucose 144 65 - 199 [facility] mg/dL [facility] LABORATORY Comment: Supplemental ranges: <140 mg/dL before meals <180 mg/dL all other times of the day Specimen Anatomical Collection Method Collection Time Receive d Time (Source) Location / / Volume Laterality Blood specimen 07/09/2017 10:05 7 (specimen) PM EST 10:05 PM EST Yuan Webber MD POINT OF CARE TEST ORDERABLE S Performing Organization Address City/State/[place] [address] POCT Glucose (07/09/2017 9:31 PM EST) athologist Signature POC Glucose 121 65 - 199 [place] [facility] mg/dL [facility] LABORATORY Comment: Supplemental ranges: <140 mg/dL before meals <180 mg/dL all other times of the day Specimen Anatomical Collection Method Collection Time Receive d Time (Source) Location / / Volume Laterality Blood specimen 07/09/2017 9:31 PM 017 9:31 (specimen) EST PM EST Yuan Webber MD POINT OF CARE TEST ORDERABLE S Performing Organization Address City/State/ZIP Code Phon e Number [address] POCT Glucose (07/09/2017 9:03 PM EST) athologist Signature POC Glucose 98 65 - 199 [place] mg/dL [facility] LABORATORY Comment: Supplemental ranges: <140 mg/dL before meals <180 mg/dL all other times of the day Specimen Anatomical Collection Method Collection Time Receive d Time (Source) Location / / Volume Laterality Blood specimen 07/09/2017 9:03 PM 017 9:03 (specimen) EST PM EST Yuan Webber MD POINT OF CARE TEST ORDERABLE S Performing Organization Address City/State/ZIP Code Phon e Number [address] POCT Glucose (07/09/2017 8:09 PM EST) athologist Signature POC Glucose 117 65 - 199 [place] [facility] mg/dL [facility] LABORATORY Comment: Supplemental ranges: <140 mg/dL before meals <180 mg/dL all other times of the day Specimen Anatomical Collection Method Collection Time Receive d Time (Source) Location / / Volume Laterality Blood specimen 07/09/2017 8:09 PM 017 8:09 (specimen) EST PM EST Yuan Webber MD POINT OF CARE TEST ORDERABLE S Performing Organization Address City/State/ZIP Code Phon e Number [address] POCT Glucose (07/09/2017 5:40 PM EST) athologist Signature POC Glucose 155 65 - 199 [facility] mg/dL [facility] LABORATORY Comment: Supplemental ranges: <140 mg/dL before meals <180 mg/dL all other times of the day Specimen Anatomical Collection Method Collection Time Receive d Time (Source) Location / / Volume Laterality Blood specimen 07/09/2017 5:40 PM 017 5:40 (specimen) EST PM EST Yuan Webber MD POINT OF CARE TEST ORDERABLE S Performing Organization Address City/State/ZIP Code Phon e Number [address] POCT Glucose (07/09/2017 4:24 PM EST) athologist Signature POC Glucose 164 65 - 199 [place] [facility] mg/dL [facility] LABORATORY Comment: Supplemental ranges: [...] City/[facility]/ZIP Code Phon e Number [address] POCT Glucose (07/09/2017 3:19 PM EST) athologist Signature POC Glucose 166 65 - 199 [place] mg/dL [facility] LABORATORY Comment: Supplemental ranges: [...] City/[facility]/[place] [address] POCT Glucose (07/09/2017 2:26 PM EST) athologist Signature POC Glucose 179 65 - 199 [place] [facility] mg/dL [facility] LABORATORY Comment: Supplemental ranges: <140 mg/dL before meals <180 mg/dL all other times of the day Specimen Anatomical Collection Method Collection Time Receive d Time (Source) Location / / Volume Laterality Blood specimen 07/09/2017 2:26 PM 017 2:26 (specimen) EST PM EST Yuan Webber MD POINT OF CARE TEST ORDERABLE S Performing Organization Address City/State/[place] [address] (ABNORMAL) POCT Glucose (07/09/2017 1:29 PM EST) P athologist Signature POC Glucose 210 (H) 65 - 199 [facility] mg/dL [facility] LABORATORY Comment: Supplemental ranges: <140 mg/dL before meals <180 mg/dL all other times of the day Specimen Anatomical Collection Method Collection Time Receive d Time (Source) Location / / Volume Laterality Blood specimen 07/09/2017 1:29 PM 017 1:29 (specimen) EST PM EST Yuan Webber MD POINT OF CARE TEST ORDERABLE S Performing Organization Address City/State/[place] [address] POCT Glucose (07/09/2017 12:20 PM EST) athologist Signature POC Glucose 172 65 - 199 [facility] mg/dL [facility] LABORATORY Comment: Supplemental ranges: <140 mg/dL before meals <180 mg/dL all other times of the day Specimen Anatomical Collection Method Collection Time Receive d Time (Source) Location / / Volume Laterality Blood specimen 07/09/2017 12:20 7 (specimen) PM EST 12:20 PM EST Yuan Webber MD POINT OF CARE TEST ORDERABLE S Performing Organization Address City/State/[place] [address] POCT Glucose (07/09/2017 11:24 AM EST) athologist Signature POC Glucose 156 65 - 199 [facility] mg/dL [facility] LABORATORY Comment: Supplemental ranges: <140 mg/dL before meals <180 mg/dL all other times of the day Specimen Anatomical Collection Method Collection Time Receive d Time (Source) Location / / Volume Laterality Blood specimen 07/09/2017 11:24 7 (specimen) AM EST 11:24 AM EST Yuan Webber MD POINT OF CARE TEST ORDERABLE S Performing Organization Address City/State/[place] [address] POCT Glucose (07/09/2017 11:11 AM EST) athologist Signature POC Glucose 172 65 - 199 [facility] mg/dL [facility] LABORATORY Comment: Supplemental ranges: <140 mg/dL before meals <180 mg/dL all other times of the day Specimen Anatomical Collection Method Collection Time Receive d Time (Source) Location / / Volume Laterality Blood specimen 07/09/2017 11:11 7 (specimen) AM EST 11:11 AM EST Yuan Webber MD POINT OF CARE TEST ORDERABLE S Performing Organization Address City/State/ZIP Code Phon e Number [address] POCT Glucose (07/09/2017 10:08 AM EST) athologist Signature POC Glucose 176 65 - 199 [facility] mg/dL [facility] LABORATORY Comment: Supplemental ranges: <140 mg/dL before meals <180 mg/dL all other times of the day Specimen Anatomical Collection Method Collection Time Receive d Time (Source) Location / / Volume Laterality Blood specimen 07/09/2017 10:08 7 (specimen) AM EST 10:08 AM EST Yuan Webber MD POINT OF CARE TEST ORDERABLE S Performing Organization Address City/State/ZIP Code Phon e Number [address] POCT Glucose (07/09/2017 8:02 AM EST) athologist Signature POC Glucose 178 65 - 199 [facility] mg/dL [facility] LABORATORY Comment: Supplemental ranges: <140 mg/dL before meals <180 mg/dL all other times of the day Specimen Anatomical Collection Method Collection Time Receive d Time (Source) Location / / Volume Laterality Blood specimen 07/09/2017 8:02 AM 017 8:02 (specimen) EST AM EST Yuan Webber MD POINT OF CARE TEST ORDERABLE S Performing Organization Address City/State/[place] [address] (ABNORMAL) BLOOD GAS 2 ARTERIAL (07/09/2017 5:37 AM EST) Analysis Performed At Patho logist Time Signature pH Art 7.36 7.35 - [facility] 7.45 [facility] LABORATORY pCO2 Art 38 35 - 45 [facility] mmHg [facility] LABORATORY pO2 Art 79 (L) 85 - 104 [facility] LABORATORY HCO3 Art 20.9 20.0 - [facility] 26.0 [facility] mmol/L [facility] LABORATORY BE Art -4.6 (L) -3.0 - 3.0 [facility] mmol/L [facility] LABORATORY Hgb Blood Gas 10.5 (L) 13.7 - [facility] 16.5 gm/dL [facility] O2HB Art 93.8 (L) 94.0 - [facility] 97.0 % [facility] LABORATORY COHB Art 0.3 % [...] [facility]ICAL [facility] LABORATORY PF Ratio Art 198 [facility] LABORATORY Specimen Anatomical Collection Method Collection Time Receive d Time (Source) Location / / Volume Laterality Blood specimen 07/09/2017 5:37 AM 017 5:37 (specimen) EST AM EST Yuan Webber MD CHEMISTRY ORDERABLES Performing Organization Address City/[facility]/ZIP Code Phon e Number [address] POCT Glucose (07/09/2017 3:27 AM EST) athologist Signature POC Glucose 192 65 - 199 [facility] mg/dL [facility] LABORATORY Comment: Supplemental ranges: <140 mg/dL before meals <180 mg/dL all other times of the day Specimen Anatomical Collection Method Collection Time Receive d Time (Source) Location / / Volume Laterality Blood specimen 07/09/2017 3:27 AM 017 3:27 (specimen) EST AM EST Yuan Webber MD POINT OF CARE TEST ORDERABLE S Performing Organization Address City/State/[place] [address] (ABNORMAL) Basic Metabolic Panel (non-fasting) (07/09/2017 2:30 AM EST) athologist Signature Glucose Lvl 179 65 - 199 [facility] mg/dL [facility] [...] or in patients with acute kidney failure. http://Econodata/DHnkdep http://Econodata/DHMCnkf Specimen Anatomical Collection Method Collection Time Receive d Time (Source) Location / / Volume Laterality Blood specimen Venous Draw / 07/09/2017 2:30 AM 2016 2:42 (specimen) Unknown EST AM EST Resulting Agency Comment Spec In Lab Yuan Webber MD CHEMISTRY ORDERABLES Performing Organization Address City/[facility] [place] [address] (ABNORMAL) Potassium (07/09/2017 2:30 AM EST) P athologist Signature Potassium 5.1 (H) 3.5 - 5.0 [facility] mmol/L [facility] LABORATORY Comment: Please note: ??Patients [...] ORDERABLES Performing Organization Address City/[facility]/ZIP [facility] [place] [address] (ABNORMAL) Hemogram (07/09/2017 2:30 AM EST) Analysis Performed At Patho logist Time Signature WBC 12.5 (H) 4.0 - 9.5 [facility] x10(3)/[facility] LABORATORY RBC 3.38 (L) 4.58 - [facility] 5.54 [facility] x10(6)/[facility] LABORATORY Hemoglobin 10.1 (L) 13.7 - [facility] 16.5 gm/dL [facility] LABORATORY Hematocrit 30.3 (L) 40.5 - [facility] 48.5 % [facility] LABORATORY MCV 89.6 82.9 - [facility] 93.[address] [facility] LABORATORY MCH 29.9 27.5 - [facility] 32.1 pg [facility] LABORATORY MCHC 33.3 32.0 - [place] 35.7 gm/dL [facility] LABORATORY Platelets 127 (L) 145 - 357 [facility] x10(3)/[facility] LABORATORY RDWSD 49.3 (H) 36.0 - [facility] 45.[address] [facility] LABORATORY RDWCV 15.2 (H) 11.4 - [facility] 13.8 % [facility] LABORATORY MPV 9.9 7.6 - 12.[address] [facility] LABORATORY nRBC % Auto 0.0 % [facility] LABORATORY nRBC Abs Auto 0.000 0.000 - [place] [facility] 0.000 [facility] x10(3)/[facility] LABORATORY Specimen Anatomical Collection Method Collection Time Receive d Time (Source) Location / / Volume Laterality Blood specimen 07/09/2017 2:30 AM 017 2:41 (specimen) EST AM EST Resulting Agency Comment Spec In Lab Yuan Webber MD HEMATOLOGY ORDERABLES Performing Organization Address City/State/[place] [address] POCT Glucose (07/09/2017 2:10 AM EST) P athologist Signature POC Glucose 169 65 - 199 [facility] mg/dL [facility] LABORATORY Comment: Supplemental ranges: <140 mg/dL before meals <180 mg/dL all other times of the day Specimen Anatomical Collection Method Collection Time Receive d Time (Source) Location / / Volume Laterality Blood specimen 07/09/2017 2:10 AM 017 2:10 (specimen) EST AM EST Yuan Webber MD POINT OF CARE TEST ORDERABLE S Performing Organization Address City/State/ZIP Code Phon e Number [address] POCT Glucose (07/09/2017 1:01 AM EST) P athologist Signature POC Glucose 173 65 - 199 [facility] mg/dL [facility] LABORATORY Comment: Supplemental ranges: [...] City/[facility]/[place] [address] Blood culture (07/09/2017 12:40 AM EST) [facility] gist Method Time Signature Blood Culture No growth [facility] at 5 days. [facility] LABORATORY Specimen Anatomical Collection Method Collection Time Receive d Time (Source) Location / / Volume Laterality Blood specimen STRUCTURE OF RIGHT 07/09/2017 12:40 3:58 (specimen) UPPER LIMB / AM EST AM EST Unknown Resulting Agency Comment Spec In Lab Yuan Webber MD MICROBIOLOGY - BLOOD ORDERAB LES Performing Organization Address City/[facility]/ZIP [place] [address] Blood culture (07/09/2017 12:30 AM EST) Patholo gist Method Time Signature Blood Culture No growth [facility] at 5 days. [facility] LABORATORY Specimen Anatomical Collection Method Collection Time Receive d Time (Source) Location / / Volume Laterality Blood specimen STRUCTURE OF LEFT 07/09/2017 12:30 06/25 3:59 (specimen) UPPER LIMB / AM EST AM EST Unknown Resulting Agency Comment Spec In Lab Yuan Webber MD MICROBIOLOGY - BLOOD ORDERAB LES Performing Organization Address City/[facility]/ZIP [place] [address] (ABNORMAL) Urinalysis Microscopic Exam (07/09/2017 12:05 AM EST) Analysis Performed At Patho logist Time Signature RBC UA 32 (H) 0 - 3 /HPF [facility] LABORATORY WBC UA 5 (H) 0 - 3 /HPF [facility] LABORATORY Squam Epith UA <1 <=4 /HPF [facility] LABORATORY Hyaline Cast 17 (H) 0 - 2 /LPF [facility] LABORATORY Gran Cast UA 1 (H) <=0 /LPF [facility] LABORATORY Uric Ac Bianca Rare (A) None /HPF [facility] LABORATORY Specimen (Source) Anatomical Collection Method Collection Time Re ceived Time Location / / Volume Laterality Urine specimen 07/09/2017 12:05 7 obtained via AM EST 12:39 AM EST indwelling urinary catheter (specimen) Resulting Agency Comment Spec In Lab Yuan Webber MD URINE ORDERABLES Performing Organization Address City/State/[place] [address] (ABNORMAL) Urinalysis with reflex Culture (07/09/2017 12:05 AM EST) Patholo gist Method Time Signature Glucose UA Negative Negative [facility] mg/dL [facility] LABORATORY Protein UA 30 (A) Negative [facility] mg/dL [facility] LABORATORY Bilirubin UA Negative Negative [facility] mg/dL [facility] LABORATORY Comment: Clinical correlation required [...] [facility] LAB[facility] Leukocytes UA Negative Negative [facility] LABORATORY Appearance UA Hazy (A) Clear [facility] Spec [place] UA 1.025 1.002 - 1.030 [facility] LABORATORY Color UA Yellow Yellow [facility] LABORATORY Culture Reflexed No [facility] LABORATORY Specimen (Source) Anatomical Collection Method Collection Time Re ceived Time Location / / Volume Laterality Urine specimen 07/09/2017 12:05 7 obtained via AM EST 12:39 AM EST indwelling urinary catheter (specimen) Resulting Agency Comment Spec In Lab Yuan Webber MD URINE ORDERABLES Performing Organization Address City/[facility]/ZIP Code Phon e Number [address] POCT Glucose (07/08/2017 11:01 PM EST) athologist Signature POC Glucose 191 65 - 199 [facility] mg/dL [facility] LABORATORY Comment: Supplemental ranges: [...] City/[facility]/ZIP Code Phon e Number [address] POCT Glucose (07/08/2017 10:04 PM EST) athologist Signature POC Glucose 198 65 - 199 [facility]/dL [facility] LABORATORY Comment: Supplemental ranges: <140 mg/dL before meals <180 mg/dL all other times of the day Specimen Anatomical Collection Method Collection Time Receive d Time (Source) Location / / Volume Laterality Blood specimen 07/08/2017 10:04 7 (specimen) PM EST 10:04 PM EST Yuan Webber MD POINT OF CARE TEST ORDERABLE S Performing Organization Address City/State/[place] [address] Prepare Albumin 5% in [...] Organization Address City/State/[place] [address] POCT Glucose (07/08/2017 8:28 PM EST) athologist Signature POC Glucose 195 65 - 199 [facility]/dL [facility] LABORATORY Comment: Supplemental ranges: <140 mg/dL before meals <180 mg/dL all other times of the day Specimen Anatomical Collection Method Collection Time Receive d Time (Source) Location / / Volume Laterality Blood specimen 07/08/2017 8:28 PM 017 8:28 (specimen) EST PM EST Yuan Webber MD POINT OF CARE TEST ORDERABLE S Performing Organization Address City/State/[place] [address] (ABNORMAL) POCT Glucose (07/08/2017 7:13 PM EST) athologist Signature POC Glucose 220 (H) 65 - 199 [facility]dL [facility] Comment: Supplemental ranges: <140 mg/dL before meals <180 mg/dL all other times of the day Specimen Anatomical Collection Method Collection Time Receive d Time (Source) Location / / Volume Laterality Blood specimen 07/08/2017 7:13 PM 017 7:13 (specimen) EST PM EST Yuan Webber MD POINT OF CARE TEST ORDERABLE S Performing Organization Address City/State/[place] [address] POCT Glucose (07/08/2017 5:04 PM EST) athologist Signature POC Glucose 147 65 - 199 [facility] mg/dL [facility] Comment: Supplemental ranges: <140 mg/dL before meals <180 mg/dL all other times of the day Specimen Anatomical Collection Method Collection Time Receive d Time (Source) Location / / Volume Laterality Blood specimen 07/08/2017 5:04 PM 017 5:04 (specimen) EST PM EST Yuan Webber MD POINT OF CARE TEST ORDERABLE S Performing Organization Address City/State/[place] [address] (ABNORMAL) BLOOD GAS 2 ARTERIAL (07/08/2017 4:13 PM EST) Analysis Performed At Patho logist Time Signature pH Art 7.38 7.35 - [facility] 7.45 [facility] pCO2 Art 36 35 - 45 [facility] mmHg [facility] pO2 Art 91 85 - 104 [facility] LABORATORY HCO3 Art 20.9 20.0 - [facility] 26.0 [facility] mmol/L [facility] LABOR[facility] BE Art -4.2 (L) -3.0 - 3.0 [facility] mmol/L [facility] Hgb Blood Gas 11.7 (L) 13.7 - [facility] 16.5 gm/dL [facility] O2HB Art 95.1 94.0 - [facility] 97.0 % [facility] COHB Art 0.6 % [...] [facility]ICAL [facility]ENTER LAB[facility]ORY PF Ratio Art 228 [facility] Specimen Anatomical Collection Method Collection Time Receive d Time (Source) Location / / Volume Laterality Blood specimen 07/08/2017 4:13 PM 017 4:13 (specimen) EST PM EST Yuan Webber MD CHEMISTRY ORDERABLES Performing Organization Address City/[facility]/ZIP [facility] [place] [address] POCT Glucose (07/08/2017 4:01 PM EST) P athologist Signature POC Glucose 148 65 - 199 [facility] mg/dL [facility] Comment: Supplemental ranges: [...] City/[facility]/[place] [address] POCT Glucose (07/08/2017 3:21 PM EST) P athologist Signature POC Glucose 118 65 - 199 [facility] mg/dL [facility] Comment: Supplemental ranges: <140 mg/dL before meals <180 mg/dL all other times of the day Specimen Anatomical Collection Method Collection Time Receive d Time (Source) Location / / Volume Laterality Blood specimen 07/08/2017 3:21 PM 017 3:21 (specimen) EST PM EST Yuan Webber MD POINT OF CARE TEST ORDERABLE S Performing Organization Address City/State/ZIP Code Phon e Number [address] POCT Glucose (07/08/2017 2:01 PM EST) athologist Signature POC Glucose 129 65 - 199 [facility] mg/dL [facility] Comment: Supplemental ranges: [...] City/[facility]/ZIP Code Phon e Number [address] POCT Glucose (07/08/2017 11:53 AM EST) athologist Signature POC Glucose 156 65 - 199 [facility] mg/dL [facility] Comment: Supplemental ranges: [...] City/[facility]/ZIP Code Phon e Number [address] POCT Glucose (07/08/2017 11:04 AM EST) athologist Signature POC Glucose 181 65 - 199 [facility] mg/dL [facility] Comment: Supplemental ranges: <140 mg/dL before meals <180 mg/dL all other times of the day Specimen Anatomical Collection Method Collection Time Receive d Time (Source) Location / / Volume Laterality Blood specimen 07/08/2017 11:04 7 (specimen) AM EST 11:04 AM EST Yuan Webber MD POINT OF CARE TEST ORDERABLE S Performing Organization Address City/State/[place] [address] (ABNORMAL) POCT Glucose (07/08/2017 9:24 AM EST) athologist Signature POC Glucose 203 (H) 65 - 199 [facility] mg/dL [facility] Comment: Supplemental ranges: <140 mg/dL before meals <180 mg/dL all other times of the day Specimen Anatomical Collection Method Collection Time Receive d Time (Source) Location / / Volume Laterality Blood specimen 07/08/2017 9:24 AM 017 9:24 (specimen) EST AM EST Yuan Webber MD POINT OF CARE TEST ORDERABLE S Performing Organization Address City/State/[place] [address] APTT (07/08/2017 8:40 AM EST) athologist Signature PTT 33 25 - 35 sec [facility] Comment: The recommended therapeutic range for fu ll dose, unfractionated heparin at [facility] is 80 ? [...] City/[facility]/[place] [address] (ABNORMAL) Prothrombin Time (07/08/2017 [...] Organization Address City/State/[place] [address] (ABNORMAL) POCT Glucose (07/08/2017 7:38 AM EST) athologist Signature POC Glucose 232 (H) 65 - 199 [facility]dL [facility] Comment: Supplemental ranges: [...] City/[facility]/[place] [address] (ABNORMAL) POCT Glucose (07/08/2017 7:07 AM EST) athologist Signature POC Glucose 234 (H) 65 - 199 [facility] Comment: Supplemental ranges: [...] City/[facility]/[place] [address] (ABNORMAL) POCT Glucose (07/08/2017 6:04 AM EST) athologist Signature POC Glucose 225 (H) 65 - 199 [facility]dL [facility] Comment: Supplemental ranges: <140 mg/dL before meals <180 mg/dL all other times of the day Specimen Anatomical Collection Method Collection Time Receive d Time (Source) Location / / Volume Laterality Blood specimen 07/08/2017 6:04 AM 017 6:04 (specimen) EST AM EST Yuan Webber MD POINT OF CARE TEST ORDERABLE S Performing Organization Address City/State/[place] [address] (ABNORMAL) POCT Glucose (07/08/2017 5:31 AM EST) athologist Signature POC Glucose 216 (H) 65 - 199 [facility]dL [facility] Comment: Supplemental ranges: <140 mg/dL before meals <180 mg/dL all other times of the day Specimen Anatomical Collection Method Collection Time Receive d Time (Source) Location / / Volume Laterality Blood specimen 07/08/2017 5:31 AM 017 5:31 (specimen) EST AM EST Yuan Webber MD POINT OF CARE TEST ORDERABLE S Performing Organization Address City/State/[place] [address] (ABNORMAL) POCT Glucose (07/08/2017 4:52 AM EST) athologist Signature POC Glucose 257 (H) 65 - 199 [facility]dL [facility] Comment: Supplemental ranges: <140 mg/dL before meals <180 mg/dL all other times of the day Specimen Anatomical Collection Method Collection Time Receive d Time (Source) Location / / Volume Laterality Blood specimen 07/08/2017 4:52 AM 017 4:52 (specimen) EST AM EST Daphne Shahid MD POINT OF CARE TEST ORDERABLE S Performing Organization Address City/State/[place] [address] (ABNORMAL) BLOOD GAS 2 ARTERIAL (07/08/2017 4:04 AM EST) Analysis Performed At Patho logist Time Signature pH Art 7.30 (L) 7.35 - [facility] 7.45 [facility] pCO2 Art 41 35 - 45 [facility] mmHg [facility] pO2 Art 83 (L) 85 - 104 [facility] LABORATORY HCO3 Art 19.6 (L) 20.0 - [facility] 26.0 [facility] mmol/L [facility] BE Art -6.8 (L) -3.0 - 3.0 [facility] mmol/L [facility] Hgb Blood Gas 12.2 (L) 13.7 - [facility] 16.5 gm/dL [facility] O2HB Art 93.5 (L) 94.0 - [facility] 97.0 % [facility] COHB Art 0.4 % [facility] Comment: Noted by supervisor instrument repair. FIO2 Art 40 % [facility] PF Ratio Art 208 [facility] Specimen Anatomical Collection Method Collection Time Receive d Time (Source) Location / / Volume Laterality Blood specimen 07/08/2017 4:04 AM 017 4:04 (specimen) EST AM EST Daphne Shahid MD CHEMISTRY ORDERABLES Performing Organization Address City/State/ZIP Code Phon e Number [address] Scan, Peripheral Blood [...] City/[facility]/ZIP Code Phon e Number [address] (ABNORMAL) Differential, Automated (07/08/2017 4:00 AM EST) Patholo gist Method Time Signature Neutrophils % 85.4 % [facility] Neutr Abs (ANC) 16.07 (H) 1.70 - [facility] 6.10 [facility] x10(3)/[facility] L LABORATORY Lymphocytes % 3.5 % [facility] LABORATORY Lymphocytes Abs 0.6 (L) 0.9 - 3.2 [facility] x10(3)/[facility] LABORATORY Monocytes % 10.4 % [facility] LABORATORY Monocyte Abs 2.0 (H) 0.3 - 0.9 [facility] x10(3)/[facility] LABORATORY Eosinophils % 0.0 % [facility] LABORATORY Eosinophils Abs 0.0 0.0 - 0.4 [facility] x10(3)/[facility] LABORATORY Basophils % 0.1 % [facility] LABORATORY Basophils Abs 0.0 0.0 - 0.1 [facility] x10(3)/[facility] LABORATORY Immature Gran % 0.60 % [...] Organization Address City/State/[place] [address] (ABNORMAL) Hemogram (07/08/2017 4:00 AM EST) Analysis Performed At Patho logist Time Signature WBC 18.8 (H) 4.0 - 9.5 [facility] x10(3)/[facility] LABORATORY RBC 4.00 (L) 4.58 - [facility] 5.54 [facility] x10(6)/[facility] LABORATORY Hemoglobin 11.9 (L) 13.7 - [facility] 16.5 gm/dL [facility] Hematocrit 35.9 (L) 40.5 - [facility] 48.5 % [facility] MCV 89.8 82.9 - [facility] [facility] LABORATORY MCH 29.8 27.5 - [facility] 32.1 pg [facility] MCHC 33.1 32.0 - [facility] 35.7 gm/dL [facility] Platelets 232 145 - 357 [facility] x10(3)/[facility] LABORATORY RDWSD 47.6 (H) 36.0 - [facility] RYAN 45.0 [facility] RDWCV 14.5 (H) 11.4 - [facility]AN 13.8 % [facility] MPV 9.5 7.6 - 12.9 [facility] LABORATORY nRBC % Auto 0.0 % [facility] LABORATORY nRBC Abs Auto 0.000 0.000 - [facility] 0.000 [facility] x10(3)/[facility] LABORATORY Specimen Anatomical Collection Method Collection Time Receive d Time (Source) Location / / Volume Laterality Blood specimen 07/08/2017 4:00 AM 017 4:09 (specimen) EST AM EST Resulting Agency Comment Spec In Lab Yuan Webber MD HEMATOLOGY ORDERABLES Performing Organization Address City/[facility]/[place] [address] (ABNORMAL) Electrolytes panel (07/08/2017 4:00 AM EST) athologist Signature Sodium 139 135 - 145 [facility] mmol/L [facility] Potassium 4.7 3.5 - 5.0 [facility] mmol/L [facility] Comment: result rechecked-JLK Please [...] City/[facility]/[place] [address] (ABNORMAL) Cardiac Enzymes (LEB/CGP) (07/08/2017 4:00 AM EST) P athologist Signature Troponin-T 1.88 (H) 0.00 - [facility] 0.00 ng/mL [facility] Comment: The 99th percentile [...] additional sample may be indicated. Reference: Third [place] Definition of Myocardial Infarction. Journal of the [...] Organization Address City/State/[place] [address] (ABNORMAL) Glucose, fasting (07/08/2017 4:00 AM EST) athologist Signature Glucose 287 (H) 65 - 99 [facility] Fasting mg/dL [facility] Comment: ?Fasting* Glucose Interpretive [...] CHEMISTRY ORDERABLES Performing Organization Address City/[facility] Code Phon e Number [address] (ABNORMAL) Creatinine (07/08/2017 4:00 AM EST) Analysis Performed At Patho logist Time Signature Creatinine 1.55 (H) 0.80 - [facility] 1.50 mg/dL [facility] Estimated GFR 44 (L) >=60 [facility] Comment: The reported eGFR should be multiplied b y 1.2 for patients. The MDRD is not an appropriate measure o f renal function for patients with body mass extremes or in patients with acute kidney failure. http://[employer]ob[employer].awesomize.me/DHnkdep http://Econodata/DHMCnkf Specimen Anatomical Collection Method Collection Time Receive d Time (Source) Location / / Volume Laterality Blood specimen 07/08/2017 4:00 AM 017 4:09 (specimen) EST AM EST Resulting Agency Comment Spec In Lab Yuan Webber MD CHEMISTRY ORDERABLES Performing Organization Address City/[facility]/ZIP Code Phon e Number [address] BUN (07/08/2017 4:00 AM EST) P athologist Signature BUN 16 10 - 20 [facility] mg/dL [facility] Specimen Anatomical Collection Method Collection Time Receive d Time (Source) Location / / Volume Laterality Blood specimen 07/08/2017 4:00 AM 017 4:09 (specimen) EST AM EST Resulting Agency Comment Spec In Lab Yuan Webber MD CHEMISTRY ORDERABLES Performing Organization Address City/[facility]/ZIP Code Phon e Number [address] (ABNORMAL) POCT Glucose (07/08/2017 3:00 AM EST) P athologist Signature POC Glucose 273 (H) 65 - 199 [facility]dL [facility] Comment: Supplemental ranges: [...] City/[facility]/[place] [address] (ABNORMAL) POCT Glucose (07/08/2017 1:57 AM EST) P athologist Signature POC Glucose 288 (H) 65 - 199 [facility] mg/dL [facility] Comment: Supplemental ranges: [...] City/[facility]/[place] [address] (ABNORMAL) POCT Glucose (07/08/2017 1:01 AM EST) P athologist Signature POC Glucose 315 (H) 65 - 199 [facility] mg/dL [facility] Comment: Supplemental ranges: <140 mg/dL before meals <180 mg/dL all other times of the day Specimen Anatomical Collection Method Collection Time Receive d Time (Source) Location / / Volume Laterality Blood specimen 07/08/2017 1:01 AM 017 1:01 (specimen) EST AM EST Daphne Shahid MD POINT OF CARE TEST ORDERABLE S Performing Organization Address City/State/[place] [address] (ABNORMAL) BLOOD GAS 2 ARTERIAL (07/08/2017 12:09 AM EST) athologist Signature pH Art 7.26 7.35 - [facility] (Critical) 7.45 [facility] Comment: Noted by supervisor instrument repair. pCO2 Art 41 35 - 45 mmHg [...] [facility] Comment: Noted by supervisor instrument repair. FIO2 Art 40 % [facility] PF Ratio Art 240 [facility] Specimen Anatomical Collection Method Collection Time Receive d Time (Source) Location / / Volume Laterality Blood specimen Arterial Draw / 07/08/2017 12:09 2016 5:31 (specimen) Unknown AM EST AM EST Resulting Agency Comment Spec In Lab Samy Maldonado MD CHEMISTRY ORDERABLES Performing Organization Address City/[facility]/[place] [address] (ABNORMAL) POCT Glucose (07/07/2017 10:56 PM EST) P athologist Signature POC Glucose 292 (H) 65 - 199 [facility] mg/dL [facility] Comment: Supplemental ranges: <140 mg/dL before meals <180 mg/dL all other times of the day Specimen Anatomical Collection Method Collection Time Receive d Time (Source) Location / / Volume Laterality Blood specimen 07/07/2017 10:56 7 (specimen) PM EST 10:56 PM EST Daphne Shahid MD POINT OF CARE TEST ORDERABLE S Performing Organization Address City/State/[place] [address] (ABNORMAL) BLOOD GAS 2 ARTERIAL (07/07/2017 10:04 PM EST) P athologist Signature pH Art 7.22 7.35 - [facility] (Critical) 7.45 [facility] Comment: Noted by supervisor instrument repair. pCO2 Art 42 35 - 45 mmHg [...] [facility] Comment: Noted by supervisor instrument repair. FIO2 Art 40 % [facility] PF Ratio Art 235 [facility] Specimen Anatomical Collection Method Collection Time Receive d Time (Source) Location / / Volume Laterality Blood specimen 07/07/2017 10:04 7 (specimen) PM EST 10:04 PM EST Daphne Shahid MD CHEMISTRY ORDERABLES Performing Organization Address City/State/[place] [address] (ABNORMAL) Hemoglobin (07/07/2017 10:00 PM EST) athologist Signature Hemoglobin 12.8 (L) 13.7 - [facility] 16.5 gm/dL [facility] Specimen Anatomical Collection Method Collection Time Receive d Time (Source) Location / / Volume Laterality Blood specimen 07/07/2017 10:00 7 (specimen) PM EST 10:13 PM EST Resulting Agency Comment Spec In Lab Yuan Webber MD HEMATOLOGY ORDERABLES Performing Organization Address City/[facility] Phon e Number [address] (ABNORMAL) Potassium (07/07/2017 10:00 PM EST) athologist [facility] Potassium 3.4 (L) 3.5 - 5.0 [facility] mmol/L [facility] Comment: Please note: ??Patients [...] CHEMISTRY ORDERABLES Performing Organization Address [facility] [place] [address] (ABNORMAL) POCT Glucose (07/07/2017 8:49 PM EST) athologist Signature POC Glucose 241 (H) 65 - 199 [facility] mg/dL [facility] Comment: Supplemental ranges: [...] City/[facility]/ZIP Code Phon e Number [address] Prepare Albumin 5% [...] City/[facility]/ZIP Code Phon e Number [address] EKG 12 Lead (07/07/2017 7:17 PM EST) Component Value Ref Range Test Analysis Performed Pathologis t Method Time At Signature Ventricular rate 75 BPM MUSE SYSTEM Atrial Rate 75 BPM MUSE SYSTEM P-R Interval 168 ms MUSE SYSTEM QRS Duration 104 ms MUSE SYSTEM Q-T Interval 462 ms MUSE SYSTEM QTC Calculated 515 ms MUSE SYSTEM (Bezet) Calculated P [place] 52 degrees MUSE SYSTEM Calculated R [place] -40 degrees MUSE SYSTEM Calculated T [place] 39 degrees MUSE SYSTEM INTERPRETATION Normal sinus [...] athologist Signature pH Art 7.21 7.35 - [facility] (Critical) 7.45 [facility] Comment: Noted by supervisor instrument repair. pCO2 Art 50 (H) 35 - 45 [...] [facility] Comment: Noted by supervisor instrument repair. Please note: Patients with WBC >100,000 may [...] [facility] Comment: Noted by supervisor instrument repair. FIO2 Art 100 % [facility] PF Ratio Art 238 [facility] Specimen Anatomical Collection Method Collection Time Receive d Time (Source) Location / / Volume Laterality Blood specimen 07/07/2017 6:57 PM 017 6:57 (specimen) EST PM EST Daphne Shahid MD CHEMISTRY ORDERABLES Performing Organization Address City/State/[place] [address] (ABNORMAL) BLOOD GAS 2 ARTERIAL (07/07/2017 5:31 PM EST) athologist Signature pH Art 7.29 7.35 - [facility] (Critical) 7.45 [facility] Comment: Noted by supervisor instrument repair. pCO2 Art 48 (H) 35 - 45 [...] City/[facility]/[place] [address] Fibrinogen (07/07/2017 5:30 PM EST) athologist Signature Fibrinogen 224 180 - 510 [facility] mg/dL [facility] Comment: Called by: JEET, [...] City/[facility]/ZIP Code Phon e Number [address] APTT (07/07/2017 5:30 PM EST) athologist Signature PTT 30 25 - 35 sec [facility] Comment: The recommended therapeutic range for fu ll dose, unfractionated heparin at [facility] is 80 ? [...] ORDERABLES Performing Organization Address City/[facility]/ZIP [facility] Phon e Number [address] (ABNORMAL) Prothrombin Time (07/07/2017 [...] City/State/ZIP Code Phon e Number [place] [id number] HOSPITAL LABOR[address]ORY Drive (ABNORMAL) Hemogram (07/07/2017 5:30 PM EST) P athologist Signature WBC 19.6 (H) 4.0 - 9.5 [facility] x10(3)/[facility] LABORATORY RBC 3.08 (L) 4.58 - [facility] 5.54 [facility] x10(6)/[facility] LABORATORY Hemoglobin 9.2 (L) 13.7 - [facility] 16.5 gm/dL [facility]ORATORY Hematocrit 28.0 (L) 40.5 - [facility] 48.5 % [facility] Comment: This result has [...] 145 - 357 x10(3)/[facility] LABORATORY RDWSD 46.5 (H) 36.0 - 45.0 fL [facility] LABORATORY RDWCV 14.1 (H) 11.4 - 13.8 % [facility] LABORATORY MPV 9.5 7.6 - 12.9 fL [facility] LABORATORY nRBC % Auto 0.0 % [facility] LABORATORY nRBC Abs Auto 0.000 0.000 - 0.000 x10(3)/[facility] LABORATORY Specimen Anatomical Collection Method Collection Time Receive d Time (Source) Location / / Volume Laterality Blood specimen 07/07/2017 5:30 PM 017 5:34 (specimen) EST PM EST Resulting Agency Comment Spec In Lab Yifan Perez MD HEMATOLOGY ORDERABLES Performing Organization Address [facility] Phon e Number [address] Prepare Platelets, Apheresis (07/07/2017 5:00 PM EST) athologist Signature Dispensed? Yes [facility] HOSPITAL LABORATORY Specimen Anatomical Collection Method Collection Time Receive d Time (Source) Location / / Volume Laterality Blood specimen 07/07/2017 5:00 PM 017 4:58 (specimen) EST PM EST Daphne Shahid MD BLOOD BANK ORDERABLES Performing Organization Address [facility] Phon e Number [address] Platelet count (07/07/2017 4:55 PM EST) athologist Signature Platelets 177 145 - 357 [facility] x10(3)/[facility] LABORATORY Plat Immature 1.5 0.0 - 7.4 [facility] LABORATORY Comment: Limitation of the Immature Platelet Frac tion (IPF)-May be less reliable when the platelet count is less than [id number]/u L due to statistical imprecision. The IPF [...] in a decreased state of production. References: [employer] The Clinical Value of the Immature Platelet Fraction (IPF) in Cell Recovery Document Number 10-1143 12/2010 [employer] The Role of the Imm ature [...] City/[facility]/[place] [address] (ABNORMAL) Hemoglobin and Hematocrit, blood (07/07/2017 4:55 PM EST) P athologist Signature Hemoglobin 9.1 (L) 13.7 - 16.5 [facility] gm/dL [facility] LABORATORY Comment: This result has [...] City/[facility]/[place] [address] (ABNORMAL) BLOOD GAS 2 ARTERIAL (07/07/2017 4:38 PM EST) Analysis Performed At Patho logist Time Signature pH Art 7.37 7.35 - [facility] 7.45 [facility] LABORATORY pCO2 Art 44 35 - 45 [facility] LABORATORY pO2 Art 322 (H) 85 - 104 [facility] HCO3 Art 24.9 20.0 - [facility] 26.0 [facility] mmol/L [facility] LABORATORY BE Art -0.4 -3.0 - 3.0 [facility] mmol/L [facility] Hgb Blood Gas 10.1 (L) 13.7 - [facility] 16.5 gm/dL [facility] O2HB Art 98.7 (H) 94.0 - [facility] 97.0 % [facility] COHB Art 0.1 % [facility] [...] [facility] LABORATORY Comment: Noted by supervisor instrument repair. Note: ??Total bilirubin higher than 20 m [...] Organization Address City/State/[place] [address] (ABNORMAL) BLOOD GAS 2 VENOUS (07/07/2017 4:06 PM EST) Analysis Performed At Patho logist Time Signature pH Cody 7.31 (L) 7.32 - [facility] 7.42 [facility] LABORATORY pCO2 Cody 47 41 - 51 [facility] LABORATORY pO2 Cody 53 (H) 25 - 40 [facility] LABORATORY HCO3 Cody 22.7 mmol/L [facility] LABORATORY BE Cody -3.7 mmol/L [facility] LABORATORY Hgb Blood Gas 10.2 (L) 13.7 - [facility] 16.5 gm/dL [facility] LABORATORY O2HB Cody 81.0 % [...] [facility] LABORATORY Comment: Noted by supervisor instrument repair. Note: ??Total bilirubin higher than 20 m [...] [facility] LABORATORY BGas Source Venous [facility] LABORATORY Specimen Anatomical Collection Method Collection Time Receive d Time (Source) Location / / Volume Laterality Blood specimen 07/07/2017 4:06 PM 017 4:06 (specimen) EST PM EST Daphne Shahid MD CHEMISTRY ORDERABLES Performing Organization Address City/State/[place] [address] (ABNORMAL) BLOOD GAS 2 ARTERIAL (07/07/2017 4:05 PM EST) Analysis Performed At Patho logist Time Signature pH Art 7.36 7.35 - [facility] 7.45 [facility] LABORATORY pCO2 Art 40 35 - 45 [facility] LABORATORY pO2 Art 282 (H) 85 - 104 [facility] LABORATORY HCO3 Art 22.1 20.0 - [facility] 26.0 [facility] mmol/L [facility] LABORATORY BE Art -3.4 (L) -3.0 - 3.0 [facility] mmol/L [facility] LABORATORY Hgb Blood Gas 10.2 (L) 13.7 - [facility] 16.5 gm/dL [facility] LABORATORY O2HB Art 98.4 (H) 94.0 - [facility] 97.0 % [facility] LABORATORY COHB Art 0.3 % [...] [facility] LABORATORY Comment: Noted by supervisor instrument repair. Note: ??Total bilirubin higher than 20 m [...] Organization Address City/State/[place] [address] (ABNORMAL) BLOOD GAS 2 ARTERIAL (07/07/2017 2:29 PM EST) Analysis Performed At Patho logist Time Signature pH Art 7.43 7.35 - [facility] 7.45 [facility] LABORATORY pCO2 Art 36 35 - 45 [facility] LABORATORY pO2 Art 221 (H) 85 - 104 [facility] LABORATORY HCO3 Art 23.2 20.0 - [facility] 26.0 [facility] mmol/L [facility] LABORATORY BE Art -1.2 -3.0 - 3.0 [facility] mmol/L [facility] LABORATORY Hgb Blood Gas 13.9 13.7 - [facility] 16.5 gm/dL [facility] LABORATORY O2HB Art 97.8 (H) 94.0 - [facility] 97.0 % [facility] LABORATORY COHB Art 1.1 % [...] CHEMISTRY ORDERABLES Performing Organization Address City/[facility] [place] [address] Prepare Coag Factors (Non-Hemophilia) (07/07/2017 1:25 PM EST) P athologist Signature Dispensed? Yes [facility] LABORATORY Specimen Anatomical Collection Method Collection Time Receive d Time (Source) Location / / Volume Laterality Blood specimen 07/07/2017 1:25 PM 017 1:21 (specimen) EST PM EST Daphne Shahid MD BLOOD BANK ORDERABLES Performing Organization Address City/[facility]/[place] [address] Prepare RBC (07/07/2017 1:10 PM EST) P athologist Signature Dispensed? Yes [facility] LABORATORY Specimen Anatomical Collection Method Collection Time Receive d Time (Source) Location / / Volume Laterality Blood specimen 07/07/2017 1:10 PM 017 1:05 (specimen) EST PM EST Daphne Shahid MD BLOOD BANK ORDERABLES Performing Organization Address City/[facility]/[place] [address] POCT Glucose (07/07/2017 11:56 AM EST) athologist Signature POC Glucose 188 65 - 199 [facility] mg/dL [facility] LABORATORY Comment: Supplemental ranges: <140 mg/dL before meals <180 mg/dL all other times of the day Specimen Anatomical Collection Method Collection Time Receive d Time (Source) Location / / Volume Laterality Blood specimen 07/07/2017 11:56 7 (specimen) AM EST 11:56 AM EST Daphne Shahid MD POINT OF CARE TEST ORDERABLE S Performing Organization Address City/State/ZIP Code Phon e Number [address] POCT Glucose (07/07/2017 11:05 AM EST) athologist Signature POC Glucose 168 65 - 199 [facility] mg/dL [facility] LABORATORY Comment: Supplemental ranges: <140 mg/dL before meals <180 mg/dL all other times of the day Specimen Anatomical Collection Method Collection Time Receive d Time (Source) Location / / Volume Laterality Blood specimen 07/07/2017 11:05 7 (specimen) AM EST 11:05 AM EST Daphne Shahid MD POINT OF CARE TEST ORDERABLE S Performing Organization Address City/State/[place] [address] POCT Glucose (07/07/2017 10:02 AM EST) athologist Signature POC Glucose 191 65 - 199 [place] mg/dL [facility] LABORATORY Comment: Supplemental ranges: <140 mg/dL before meals <180 mg/dL all other times of the day Specimen Anatomical Collection Method Collection Time Receive d Time (Source) Location / / Volume Laterality Blood specimen 07/07/2017 10:02 7 (specimen) AM EST 10:02 AM EST Daphne Shahid MD POINT OF CARE TEST ORDERABLE S Performing Organization Address City/State/[place] [address] POCT Glucose (07/07/2017 7:53 AM EST) athologist Signature POC Glucose 178 65 - 199 [facility] mg/dL [facility] LABORATORY Comment: Supplemental ranges: <140 mg/dL before meals <180 mg/dL all other times of the day Specimen Anatomical Collection Method Collection Time Receive d Time (Source) Location / / Volume Laterality Blood specimen 07/07/2017 7:53 AM 017 7:53 (specimen) EST AM EST Daphne Shahid MD POINT OF CARE TEST ORDERABLE S Performing Organization Address City/State/[place] [address] POCT Glucose (07/07/2017 7:03 AM EST) athologist Signature POC Glucose 188 65 - 199 [facility] mg/dL [facility] LABORATORY Comment: Supplemental ranges: <140 mg/dL before meals <180 mg/dL all other times of the day Specimen Anatomical Collection Method Collection Time Receive d Time (Source) Location / / Volume Laterality Blood specimen 07/07/2017 7:03 AM 017 7:03 (specimen) EST AM EST Daphne Shahid MD POINT OF CARE TEST ORDERABLE S Performing Organization Address City/State/[place] [address] (ABNORMAL) POCT Glucose (07/07/2017 6:17 AM EST) athologist Signature POC Glucose 207 (H) 65 - 199 [facility] mg/dL [facility] LABORATORY Comment: Supplemental ranges: <140 mg/dL before meals <180 mg/dL all other times of the day Specimen Anatomical Collection Method Collection Time Receive d Time (Source) Location / / Volume Laterality Blood specimen 07/07/2017 6:17 AM 017 6:17 (specimen) EST AM EST Daphne Shahid MD POINT OF CARE TEST ORDERABLE S Performing Organization Address City/State/[place] [address] Differential, Automated (07/07/2017 5:15 AM EST) P athologist Signature Neutrophils % 69.7 % [facility] LABORATORY Neutr Abs (ANC) 5.32 1.70 - [facility] 6.10 [facility] x10(3)/[facility] LABORATORY Lymphocytes % 16.3 % [facility] LABORATORY Lymphocytes Abs 1.2 0.9 - 3.2 [facility] x10(3)/[facility] LABORATORY Monocytes % 10.5 % [facility] LABORATORY Monocyte Abs 0.8 0.3 - 0.9 [facility] x10(3)/[facility] LABORATORY Eosinophils % 2.5 % [facility] LABORATORY Eosinophils Abs 0.2 0.0 - 0.4 [facility] x10(3)/[facility] LABORATORY Basophils % 0.7 % [facility] LABORATORY Basophils Abs 0.0 0.0 - 0.1 [facility] x10(3)/[facility] LABORATORY Immature Gran % 0.30 % BAR[facility] [...] Melisa Gran Abs 0.02 0.00 - 0.04 x10(3)/[facility] LABORATORY Specimen Anatomical Collection Method Collection Time Receive d Time (Source) Location / / Volume Laterality Blood specimen 07/07/2017 5:15 AM 017 5:34 (specimen) EST AM EST Resulting Agency Comment Spec In Lab Daphne Shahid MD HEMATOLOGY ORDERABLES Performing Organization Address City/State/[place] [address] (ABNORMAL) Hemogram (07/07/2017 5:15 AM EST) Analysis Performed At Patho logist Time Signature WBC 7.6 4.0 - 9.5 [facility] x10(3)/[facility] LABORATORY RBC 4.82 4.58 - [facility] 5.54 [facility] x10(6)/[facility] LABORATORY Hemoglobin 14.4 13.7 - [facility] 16.5 gm/dL [facility] LABORATORY Hematocrit 42.1 40.5 - [facility] 48.5 % [facility] LABORATORY MCV 87.3 82.9 - [facility] 93.[address] [facility] LABORATORY MCH 29.9 27.5 - [facility] 32.1 pg [facility] LABORATORY MCHC 34.2 32.0 - [facility] 35.7 gm/dL [facility] LABORATORY Platelets 188 145 - 357 [facility] x10(3)/[facility] LABORATORY RDWSD 45.1 (H) 36.0 - [facility] 45.[address] [facility] LABORATORY RDWCV 14.3 (H) 11.4 - [facility] 13.8 % [facility] LABORATORY MPV 9.4 7.6 - 12.9 [facility] LABORATORY nRBC % Auto 0.0 % [facility] LABORATORY nRBC Abs Auto 0.000 0.000 - [facility] 0.000 [facility] x10(3)/[facility] LABORATORY Specimen Anatomical Collection Method Collection Time Receive d Time (Source) Location / / Volume Laterality Blood specimen 07/07/2017 5:15 AM 017 5:34 (specimen) EST AM EST Resulting Agency Comment Spec In Lab Daphne Shahid MD HEMATOLOGY ORDERABLES Performing Organization Address City/State/[place] [address] (ABNORMAL) APTT (07/07/2017 5:15 AM EST) P athologist Signature PTT 69 (H) 25 - 35 sec [facility] LABORATORY Comment: The recommended therapeutic range for fu ll dose, unfractionated heparin at [facility] is 80 ? [...] Address City/State/ZIP Code Phon e Number [address] Magnesium (07/07/2017 5:15 AM EST) athologist Signature Magnesium 0.94 0.69 - 1.07 [facility] mmol/L [facility] LABORATORY Specimen Anatomical Collection Method Collection Time Receive d Time (Source) Location / / Volume Laterality Blood specimen 07/07/2017 5:15 AM 017 5:34 (specimen) EST AM EST Resulting Agency Comment Spec In Lab Daphne Shahid MD CHEMISTRY ORDERABLES Performing Organization Address City/[facility] Code Phon e Number [address] (ABNORMAL) Basic Metabolic Panel (non-fasting) (07/07/2017 5:15 AM EST) athologist Signature Glucose Lvl 203 (H) 65 - 199 [facility] mg/dL [facility] Estimated GFR >60 >=60 [facility] LABORATORY Comment: The reported eGFR should be multiplied b y 1.2 for patients. The MDRD is not an appropriate measure o f renal function for patients with body mass extremes or in patients with acute kidney failure. http://[employer]/DHnkdep http://[employer]/DHMCnkf Specimen Anatomical Collection Method Collection Time Receive d Time (Source) Location / / Volume Laterality Blood specimen 07/07/2017 5:15 AM 017 5:34 (specimen) EST AM EST Resulting Agency Comment Spec In Lab Daphne Shahid MD CHEMISTRY ORDERABLES Performing Organization Address City/State/[place] [address] (ABNORMAL) Cardiac Enzymes (LEB/CGP) (07/07/2017 5:15 AM EST) P athologist Signature Troponin-T 2.07 (H) 0.00 - [facility] 0.00 ng/mL [facility] LABORATORY Comment: The 99th percentile [...] additional sample may be indicated. Reference: Third [place] Definition of Myocardial Infarction. Journal of the [...] Address City/State/ZIP Code Phon e Number [address] POCT Glucose (07/07/2017 5:01 AM EST) athologist Signature POC Glucose 182 65 - 199 [facility] mg/dL [facility] LABORATORY Comment: Supplemental ranges: <140 mg/dL before meals <180 mg/dL all other times of the day Specimen Anatomical Collection Method Collection Time Receive d Time (Source) Location / / Volume Laterality Blood specimen 07/07/2017 5:01 AM 017 5:01 (specimen) EST AM EST Daphne Shahid MD POINT OF CARE TEST ORDERABLE S Performing Organization Address City/State/ZIP Code Phon e Number [address] POCT Glucose (07/07/2017 4:08 AM EST) athologist Signature POC Glucose 199 65 - 199 [facility] LABORATORY Comment: Supplemental ranges: <140 mg/dL before meals <180 mg/dL all other times of the day Specimen Anatomical Collection Method Collection Time Receive d Time (Source) Location / / Volume Laterality Blood specimen 07/07/2017 4:08 AM 017 4:08 (specimen) EST AM EST Daphne Shahid MD POINT OF CARE TEST ORDERABLE S Performing Organization Address City/State/ZIP Code Phon e Number [address] POCT Glucose (07/07/2017 3:03 AM EST) athologist Signature POC Glucose 188 65 - 199 [facility]/dL [facility] LABORATORY Comment: Supplemental ranges: [...] City/[facility]/[place] [address] (ABNORMAL) POCT Glucose (07/07/2017 2:08 AM EST) athologist Signature POC Glucose 200 (H) 65 - 199 [facility]/dL [facility] LABORATORY Comment: Supplemental ranges: [...] City/[facility]/[place] [address] (ABNORMAL) POCT Glucose (07/07/2017 1:31 AM EST) athologist Signature POC Glucose 209 (H) 65 - 199 [facility] mg/dL [facility] LABORATORY Comment: Supplemental ranges: [...] City/[facility]/[place] [address] XR Chest PA or [...] Signature POC Glucose 161 65 - 199 [facility] mg/dL [facility] LABORATORY Comment: Supplemental ranges: <140 mg/dL before meals <180 mg/dL all other times of the day Specimen Anatomical Collection Method Collection Time Receive d Time (Source) Location / / Volume Laterality Blood specimen 07/07/2017 12:07 7 (specimen) AM EST 12:07 AM EST Daphne Shahid MD POINT OF CARE TEST ORDERABLE S Performing Organization Address City/State/[place] [address] (ABNORMAL) APTT (07/07/2017 12:00 AM EST) athologist Signature PTT 103 (H) 25 - 35 sec [facility] LABORATORY Comment: The recommended therapeutic range for fu ll dose, unfractionated heparin at [facility] is 80 ? [...] Address City/State/ZIP Code Phon e Number [address] POCT Glucose (07/06/2017 9:55 PM EST) athologist Signature POC Glucose 109 65 - 199 [place] mg/dL [facility] LABORATORY Comment: Supplemental ranges: [...] City/[facility]/ZIP Code Phon e Number [address] POCT Glucose (07/06/2017 9:04 PM EST) athologist Signature POC Glucose 120 65 - 199 [place] mg/dL [facility] LABORATORY Comment: Supplemental ranges: [...] City/[facility]/ZIP Code Phon e Number [address] POCT Glucose (07/06/2017 7:45 PM EST) athologist Signature POC Glucose 158 65 - 199 [place] mg/dL [facility] LABORATORY Comment: Supplemental ranges: [...] City/[facility]/[place] [address] Potassium (07/06/2017 7:40 PM EST) athologist Signature Potassium 3.9 3.5 - 5.0 [facility] mmol/L [facility] LABORATORY Comment: Please note: ??Patients [...] City/[facility]/[place] [address] (ABNORMAL) Cardiac Enzymes (LEB/CGP) (07/06/2017 7:40 PM EST) athologist Signature Troponin-T 2.27 (H) 0.00 - [place] 0.00 ng/mL [facility] LABORATORY Comment: The 99th percentile [...] additional sample may be indicated. Reference: Third [place] Definition of Myocardial Infarction. Journal of the [...] City/[facility]/[place] [address] (ABNORMAL) POCT Glucose (07/06/2017 7:13 PM EST) P athologist Signature POC Glucose 200 (H) 65 - 199 [facility] mg/dL [facility] LABORATORY Comment: Supplemental ranges: [...] City/[facility]/[place] [address] (ABNORMAL) APTT (07/06/2017 6:15 PM EST) P athologist Signature PTT 94 (H) 25 - 35 sec [facility] LABORATORY Comment: The recommended therapeutic range for fu ll dose, unfractionated heparin at [facility] is 80 ? [...] City/[facility]/[place] [address] (ABNORMAL) POCT Glucose (07/06/2017 6:03 PM EST) athologist Signature POC Glucose 236 (H) 65 - 199 [place] mg/dL [facility] LABORATORY Comment: Supplemental ranges: [...] City/[facility]/[place] [address] (ABNORMAL) POCT Glucose (07/06/2017 5:01 PM EST) athologist Signature POC Glucose 235 (H) 65 - 199 [place] [facility] mg/dL [facility] LABORATORY Comment: Supplemental ranges: [...] City/[facility]/[place] [address] (ABNORMAL) POCT Glucose (07/06/2017 4:06 PM EST) athologist Signature POC Glucose 202 (H) 65 - 199 [place] [facility] mg/dL [facility] LABORATORY Comment: Supplemental ranges: <140 mg/dL before meals <180 mg/dL all other times of the day Specimen Anatomical Collection Method Collection Time Receive d Time (Source) Location / / Volume Laterality Blood specimen 07/06/2017 4:06 PM 017 4:06 (specimen) EST PM EST Daphne Shahid MD POINT OF CARE TEST ORDERABLE S Performing Organization Address City/State/ZIP Code Phon e Number [address] POCT Glucose (07/06/2017 2:59 PM EST) athologist Signature POC Glucose 178 65 - 199 [facility] mg/dL [facility] LABORATORY Comment: Supplemental ranges: [...] City/[facility]/[place] [address] (ABNORMAL) Cardiac Enzymes (LEB/CGP) (07/06/2017 2:10 PM EST) athologist Signature Troponin-T 2.34 (H) 0.00 - [facility] 0.[facility] ng/mL [facility] LABORATORY Comment: The 99th percentile [...] additional sample may be indicated. Reference: Third [place] Definition of Myocardial Infarction. Journal of the [place] [employer] 2012;60:1581-98 CK, Total 101 0 - 200 unit/L [facility] LABORATORY Specimen Anatomical Collection Method Collection Time Receive d Time (Source) Location / / Volume Laterality Blood specimen 07/06/2017 2:10 PM 017 2:26 (specimen) EST PM EST Resulting Agency Comment Spec In Lab Daphne Shahid MD CHEMISTRY ORDERABLES Performing Organization Address [facility] Phon e Number [address] POCT Glucose (07/06/2017 2:08 PM EST) P athologist Signature POC Glucose 192 65 - 199 [facility] mg/dL [facility] LABORATORY Comment: Supplemental ranges: [...] City/[facility]/[place] [address] POCT Glucose (07/06/2017 1:04 PM EST) P athologist Signature POC Glucose 162 65 - 199 [facility] mg/dL [facility] LABORATORY Comment: Supplemental ranges: [...] City/[facility]/[place] [address] [facility] LAB[address] POCT Glucose (07/06/2017 12:05 PM EST) P athologist Signature POC Glucose 196 65 - 199 [facility] mg/dL [facility] LABORATORY Comment: Supplemental ranges: [...] City/[facility]/ZIP Code Phon e Number [address] EKG 12 Lead (07/06/2017 12:00 PM EST) Component Value Ref Range Test Analysis Performed Pathologis t Method Time At Signature Ventricular rate 91 BPM MUSE SYSTEM Atrial Rate 91 BPM MUSE SYSTEM P-R Interval 140 ms MUSE SYSTEM QRS Duration 94 ms MUSE SYSTEM Q-T Interval 394 ms MUSE SYSTEM QTC Calculated 484 ms MUSE SYSTEM (Bezet) Calculated P [place] 36 degrees MUSE SYSTEM Calculated R [place] -19 degrees MUSE SYSTEM Calculated T [place] 104 degrees MUSE SYSTEM INTERPRETATION Normal sinus rhythm MUSE SYSTEM 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) ST & T wave abnormality, consider lateral ischemia Abnormal ECG When compared with ECG of 05-JUL-2017 20:39, No significant change was found Confirmed by MD Luci, Taurus Braun ([id number]) on 07/06/2017 5:07:33 PM Specimen Anatomical Collection Method Collection Time Receive d Time (Source) Location / / Volume Laterality 07/06/2017 12:00 07/06/2017 5:07 PM EST PM EST Daphne Shahid MD ECG ORDERABLES Performing Organization Address City/State/ZIP Code Phon e Number MUSE SYSTEM ABORH Recheck Status (07/06/2017 12:00 PM EST) Patholo gist Method Time Signature ABORH Type Completed formerly [facility] LABORATORY Specimen Anatomical Collection Method Collection Time Receive d Time (Source) Location / / Volume Laterality Blood specimen 07/06/2017 12:00 7 (specimen) PM EST 12:24 PM EST Resulting Agency Comment Spec In Lab Daphne Shahid MD BLOOD BANK ORDERABLES Performing Organization Address City/[facility]/[place] [address] Antibody screen (07/06/2017 12:00 PM EST) Patholo gist Method Time Signature Ab Screen Negative [facility] LABORATORY Expires at 07/09/2017 [facility] [id number] on: [facility] LABORATORY Specimen Anatomical Collection Method Collection Time Receive d Time (Source) Location / / Volume Laterality Blood specimen 07/06/2017 12:00 7 (specimen) PM EST 12:24 PM EST Resulting Agency Comment Spec In Lab Daphne Shahid MD BLOOD BANK ORDERABLES Performing Organization Address City/[facility]/[place] [address] ABO/Rh Typing (07/06/2017 12:00 [...] City/[facility]/[place] [address] Prothrombin Time (07/06/2017 11:24 [...] City/[facility]/ZIP Code Phon e Number [address] (ABNORMAL) APTT (07/06/2017 11:24 AM EST) P athologist Signature PTT 52 (H) 25 - 35 sec [facility] LABORATORY Comment: The recommended therapeutic range for fu ll dose, unfractionated heparin at [facility] is 80 ? [...] City/[facility]/[place] [address] POCT Glucose (07/06/2017 11:02 AM EST) P athologist Signature POC Glucose 187 65 - 199 [facility] mg/dL [facility] LABORATORY Comment: Supplemental ranges: [...] City/[facility]/[place] [address] POCT Glucose (07/06/2017 10:18 AM EST) P athologist Signature POC Glucose 193 65 - 199 [place] mg/dL [facility] LABORATORY Comment: Supplemental ranges: <140 mg/dL before meals <180 mg/dL all other times of the day Specimen Anatomical Collection Method Collection Time Receive d Time (Source) Location / / Volume Laterality Blood specimen 07/06/2017 10:18 7 (specimen) AM EST 10:18 AM EST Daphne Shahid MD POINT OF CARE TEST ORDERABLE S Performing Organization Address City/State/[place] [address] POCT Glucose (07/06/2017 9:25 AM EST) athologist Signature POC Glucose 182 65 - 199 [facility] LABORATORY Comment: Supplemental ranges: <140 mg/dL before meals <180 mg/dL all other times of the day Specimen Anatomical Collection Method Collection Time Receive d Time (Source) Location / / Volume Laterality Blood specimen 07/06/2017 9:25 AM 017 9:25 (specimen) EST AM EST Daphne Shahid MD POINT OF CARE TEST ORDERABLE S Performing Organization Address City/State/[place] [address] (ABNORMAL) Cardiac Enzymes (LEB/CGP) (07/06/2017 8:10 AM EST) athologist [place] Troponin-T 2.26 (H) 0.00 - [place] 0.00 ng/mL [facility] LABORATORY Comment: The 99th percentile [...] additional sample may be indicated. Reference: Third [place] Definition of Myocardial Infarction. Journal of the [...] City/[facility]/ZIP Code Phon e Number [address] Magnesium (07/06/2017 8:10 AM EST) P athologist Signature Magnesium 0.84 0.69 - 1.07 [facility] mmol/L [facility] LABORATORY Specimen Anatomical Collection Method Collection Time Receive d Time (Source) Location / / Volume Laterality Blood specimen 07/06/2017 8:10 AM 017 8:21 (specimen) EST AM EST Resulting Agency Comment Spec In Lab Daphne Shahid MD CHEMISTRY ORDERABLES Performing Organization Address City/[facility] [place] [address] (ABNORMAL) Basic Metabolic Panel (non-fasting) (07/06/2017 8:10 AM EST) P athologist Signature Glucose Lvl 199 65 - 199 [facility] mg/dL [facility] Estimated GFR >60 >=60 [facility] LABORATORY Comment: The reported eGFR should be multiplied b y 1.2 for patients. The MDRD is not an appropriate measure o f renal function for patients with body mass extremes or in patients with acute kidney failure. http://Econodata/DHnkdep http://Econodata/DHnkf Specimen Anatomical Collection Method Collection Time Receive d Time (Source) Location / / Volume Laterality Blood specimen 07/06/2017 8:10 AM 017 8:21 (specimen) EST AM EST Resulting Agency Comment Spec In Lab Daphne Shahid MD CHEMISTRY ORDERABLES Performing Organization Address City/[facility]/[place] [address] POCT Glucose (07/06/2017 7:34 AM EST) P athologist Signature POC Glucose 198 65 - 199 [facility] mg/dL [facility] LABORATORY Comment: Supplemental ranges: [...] City/[facility]/[place] [address] POCT Glucose (07/06/2017 7:03 AM EST) P athologist Signature POC Glucose 181 65 - 199 [place] mg/dL [facility] LABORATORY Comment: Supplemental ranges: <140 mg/dL before meals <180 mg/dL all other times of the day Specimen Anatomical Collection Method Collection Time Receive d Time (Source) Location / / Volume Laterality Blood specimen 07/06/2017 7:03 AM 017 7:03 (specimen) EST AM EST Daphne Shahid MD POINT OF CARE TEST ORDERABLE S Performing Organization Address City/State/ZIP Code Phon e Number [address] XR Chest PA [...] Signature POC Glucose 172 65 - 199 [facility] mg/dL [facility] LABORATORY Comment: Supplemental ranges: <140 mg/dL before meals <180 mg/dL all other times of the day Specimen Anatomical Collection Method Collection Time Receive d Time (Source) Location / / Volume Laterality Blood specimen 07/06/2017 6:21 AM 017 6:21 (specimen) EST AM EST Daphne Shahid MD POINT OF CARE TEST ORDERABLE S Performing Organization Address City/State/[place] [address] POCT Glucose (07/06/2017 5:08 AM EST) athologist Signature POC Glucose 154 65 - 199 [facility] mg/dL [facility] LABORATORY Comment: Supplemental ranges: <140 mg/dL before meals <180 mg/dL all other times of the day Specimen Anatomical Collection Method Collection Time Receive d Time (Source) Location / / Volume Laterality Blood specimen 07/06/2017 5:08 AM 017 5:08 (specimen) EST AM EST Daphne Shahid MD POINT OF CARE TEST ORDERABLE S Performing Organization Address City/State/[place] [address] POCT Glucose (07/06/2017 4:05 AM EST) athologist Signature POC Glucose 142 65 - 199 [facility] mg/dL [facility] LABORATORY Comment: Supplemental ranges: [...] City/[facility]/ZIP Code Phon e Number [address] POCT Glucose (07/06/2017 3:00 AM EST) athologist [facility] POC Glucose 116 65 - 199 [facility] mg/dL [facility] LABORATORY Comment: Supplemental ranges: [...] City/[facility]/ZIP Code Phon e Number [address] Potassium (07/06/2017 2:20 AM EST) athologist [facility] Potassium 3.9 3.5 - 5.0 [facility] mmol/L [facility] LABORATORY Comment: Please note: ??Patients [...] City/[facility]/ZIP Code Phon e Number [address] Differential, Automated (07/06/2017 2:20 AM EST) athologist [facility] Neutrophils % 72.9 % [facility] LABORATORY Neutr Abs (ANC) 5.53 1.70 - [facility] 6.10 [facility] x10(3)/[facility] LABORATORY Lymphocytes % 16.4 % [facility] LABORATORY Lymphocytes Abs 1.2 0.9 - 3.2 [facility] x10(3)/[facility] LABORATORY Monocytes % 9.4 % [facility] LABORATORY Monocyte Abs 0.7 0.3 - 0.9 [facility] x10(3)/[facility] LABORATORY Eosinophils % 0.5 % [facility] LABORATORY Eosinophils Abs 0.0 0.0 - 0.4 [facility] x10(3)/[facility] LABORATORY Basophils % 0.4 % [facility] LABORATORY Basophils Abs 0.0 0.0 - 0.1 [facility] x10(3)/[facility] LABORATORY Immature Gran % 0.40 % [facility] [...] Melisa Gran Abs 0.03 0.00 - 0.04 x10(3)/[facility] Y [facility] LABORATORY Specimen Anatomical Collection Method Collection Time Receive d Time (Source) Location / / Volume Laterality Blood specimen 07/06/2017 2:20 AM 017 2:33 (specimen) EST AM EST Resulting Agency Comment Spec In Lab Daphne Shahid MD HEMATOLOGY ORDERABLES Performing Organization Address City/State/[place] [address] (ABNORMAL) Hemogram (07/06/2017 2:20 AM EST) Analysis Performed At Patho logist Time Signature WBC 7.6 4.0 - 9.5 [facility] x10(3)/[facility] LABORATORY RBC 4.52 (L) 4.58 - [facility] 5.54 [facility] x10(6)/[facility] LABORATORY Hemoglobin 13.4 (L) 13.7 - [place] [facility] 16.5 gm/dL [facility] LABORATORY Hematocrit 39.7 (L) 40.5 - [place] 48.5 % [facility] LABORATORY MCV 87.8 82.9 - [facility] RYAN [address] [facility] LABORATORY MCH 29.6 27.5 - [place] [facility] 32.1 pg [facility] LABORATORY MCHC 33.8 32.0 - [place] 35.7 gm/dL [facility] LABORATORY Platelets 189 145 - 357 [facility] x10(3)/[facility] LABORATORY RDWSD 45.6 (H) 36.0 - [facility] 45.[address] [facility] LABORATORY RDWCV 14.3 (H) 11.4 - [facility] RYAN 13.8 % [facility] LABORATORY MPV 9.1 7.6 - 12.9 [facility] LABORATORY nRBC % Auto 0.0 % [facility] LABORATORY nRBC Abs Auto 0.000 0.000 - [facility] RYAN 0.000 [facility] x10(3)/[facility] LABORATORY Specimen Anatomical Collection Method Collection Time Receive d Time (Source) Location / / Volume Laterality Blood specimen 07/06/2017 2:20 AM 017 2:33 (specimen) EST AM EST Resulting Agency Comment Spec In Lab Daphne Shahid MD HEMATOLOGY ORDERABLES Performing Organization Address City/State/[place] [address] (ABNORMAL) APTT (07/06/2017 2:20 AM EST) P athologist Signature PTT 52 (H) 25 - 35 sec [facility] LABORATORY Comment: The recommended therapeutic range for fu ll dose, unfractionated heparin at [facility] is 80 ? [...] Address City/State/ZIP Code Phon e Number [address] POCT Glucose (07/06/2017 2:20 AM EST) athologist Signature POC Glucose 115 65 - 199 [facility] LABORATORY Comment: Supplemental ranges: <140 mg/dL before meals <180 mg/dL all other times of the day Specimen Anatomical Collection Method Collection Time Receive d Time (Source) Location / / Volume Laterality Blood specimen 07/06/2017 2:20 AM 017 2:20 (specimen) EST AM EST Daphne Shahid MD POINT OF CARE TEST ORDERABLE S Performing Organization Address City/State/[place] [address] (ABNORMAL) Cardiac Enzymes (LEB/CGP) (07/06/2017 2:20 AM EST) athologist Signature Troponin-T 2.13 (H) 0.00 - [place] 0.00 ng/mL [facility] LABORATORY Comment: The 99th percentile [...] additional sample may be indicated. Reference: Third [place] Definition of Myocardial Infarction. Journal of the [...] Organization Address City/State/[place] [address] (ABNORMAL) Hemoglobin A1c (07/06/2017 [...] with hemoglobinopathies. Additional resources are available on [facility] website. Macario HAMMOND, Ruthann J, Deysi R, et al. ??Tr anslating the A1C assay into estimated average glucose values. ??Diabetes Care 2008:31(8):2175-1993. Specimen Anatomical Collection Method Collection Time Receive d Time (Source) Location / / Volume Laterality Blood specimen 07/06/2017 2:20 AM 017 2:34 (specimen) EST AM EST Resulting Agency Comment Spec In Lab Daphne Shahid MD CHEMISTRY ORDERABLES Performing Organization Address City/State/[place] [address] (ABNORMAL) Lipid Panel (07/06/2017 2:20 AM EST) [facility] Method Time Signature Chol, Total 150 <=239 [place] mg/dL [facility] LABORATORY Triglycerides 129 <=199 [facility] mg/dL [facility] LABORATORY HDL 32 (L) >=40 [facility] mg/dL [facility] LABORATORY LDL Cholesterol 92 <=190 [place] mg/dL [facility] LABORATORY Chol/HDL Ratio 4.7 ratio [facility] LABORATORY Lipid See Note [place] Interpretation [facility] LABORATORY Comment: Lipid management should be guided by a p atient? s ASCVD risk, goals and preferences. ACC/AHA Guidelines recommend high intens ity statin if clinical ASCVD or LDL greater than or equal to 190 mg/dL. http://tinyurl.com/NNQ-VJV-Ynlfmysqn Adults aged 40-75 with LDL 70-189 mg/dL should have their 10 year ASCVD risk estimated with the ACC/AHA ASCVD risk es timator http://tools.acc.org/DHHQL-Iysf-Cksnlmob r/ Statin should be discussed if risk [...] City/[facility]/ZIP Code Phon e Number [address] POCT Glucose (07/06/2017 1:09 AM EST) athologist Signature POC Glucose 121 65 - 199 [facility] LABORATORY Comment: Supplemental ranges: [...] City/[facility]/[place] [address] POCT Glucose (07/06/2017 12:06 AM EST) athologist Signature POC Glucose 147 65 - 199 [facility] mg/dL [facility] LABORATORY Comment: Supplemental ranges: <140 mg/dL before meals <180 mg/dL all other times of the day Specimen Anatomical Collection Method Collection Time Receive d Time (Source) Location / / Volume Laterality Blood specimen 07/06/2017 12:06 7 (specimen) AM EST 12:06 AM EST Daphne Shahid MD POINT OF CARE TEST ORDERABLE S Performing Organization Address City/State/[place] [address] (ABNORMAL) POCT Glucose (07/05/2017 10:56 PM EST) athologist Signature POC Glucose 200 (H) 65 - 199 [facility]dL [facility] LABORATORY Comment: Supplemental ranges: <140 mg/dL before meals <180 mg/dL all other times of the day Specimen Anatomical Collection Method Collection Time Receive d Time (Source) Location / / Volume Laterality Blood specimen 07/05/2017 10:56 7 (specimen) PM EST 10:56 PM EST Daphne Shahid MD POINT OF CARE TEST ORDERABLE S Performing Organization Address City/State/[place] [address] (ABNORMAL) POCT Glucose (07/05/2017 10:05 PM EST) athologist Signature POC Glucose 225 (H) 65 - 199 [facility]/dL [facility] LABORATORY Comment: Supplemental ranges: <140 mg/dL before meals <180 mg/dL all other times of the day Specimen Anatomical Collection Method Collection Time Receive d Time (Source) Location / / Volume Laterality Blood specimen 07/05/2017 10:05 7 (specimen) PM EST 10:05 PM EST Daphne Shahid MD POINT OF CARE TEST ORDERABLE S Performing Organization Address City/State/[place] [address] (ABNORMAL) POCT Glucose (07/05/2017 9:02 PM EST) athologist Signature POC Glucose 301 (H) 65 - 199 [facility]dL [facility] LABORATORY Comment: Supplemental ranges: <140 mg/dL before meals <180 mg/dL all other times of the day Specimen Anatomical Collection Method Collection Time Receive d Time (Source) Location / / Volume Laterality Blood specimen 07/05/2017 9:02 PM 017 9:02 (specimen) EST PM EST Daphne Shahid MD POINT OF CARE TEST ORDERABLE S Performing Organization Address City/State/[place] [address] XR Chest PA or [...] 474 ms MUSE SYSTEM (Bezet) Calculated P [place] 50 degrees MUSE SYSTEM Calculated R [place] -28 degrees MUSE SYSTEM Calculated T [place] 90 degrees MUSE SYSTEM INTERPRETATION Sinus tachycardia [...] Differential, Automated (07/05/2017 8:20 PM EST) [facility] gist Method Time Signature Neutrophils % 88.4 % [facility] LABORATORY Neutr Abs (ANC) 9.08 (H) 1.70 - [facility] 6.10 [facility] x10(3)/[facility] LABORATORY Lymphocytes % 7.0 % [facility] LABORATORY Lymphocytes Abs 0.7 (L) 0.9 - 3.2 [facility] x10(3)/[facility] LABORATORY Monocytes % 3.7 % [facility] LABORATORY Monocyte Abs 0.4 0.3 - 0.9 [facility] x10(3)/[facility] LABORATORY Eosinophils % 0.1 % [facility] LABORATORY Eosinophils Abs 0.0 0.0 - 0.4 [facility] x10(3)/[facility] LABORATORY Basophils % 0.2 % [facility] LABORATORY Basophils Abs 0.0 0.0 - 0.1 [facility] x10(3)/[facility] LABORATORY Immature Gran % 0.60 % [...] Organization Address City/State/[place] [address] (ABNORMAL) Hemogram (07/05/2017 8:20 PM EST) Analysis Performed At Patho logist Time Signature WBC 10.3 (H) 4.0 - 9.5 [facility] x10(3)/[facility] LABORATORY RBC 4.64 4.58 - [place] 5.54 [facility] x10(6)/[facility] LABORATORY Hemoglobin 14.1 13.7 - [place] 16.5 gm/dL [facility] LABORATORY Hematocrit 40.8 40.5 - [facility] RYAN 48.5 % [facility] LABORATORY MCV 87.9 82.9 - [facility] RYAN [address] [facility] LABORATORY MCH 30.4 27.5 - [place] 32.1 pg [facility] LABORATORY MCHC 34.6 32.0 - [facility] R[facility]AN 35.7 gm/dL [facility] LABORATORY Platelets 204 145 - 357 [facility] x10(3)/[facility] LABORATORY RDWSD 46.1 (H) 36.0 - [facility] R[facility]AN 45.[address] [facility] LABORATORY RDWCV 14.5 (H) 11.4 - [facility] R[facility]AN 13.8 % [facility] LABORATORY MPV 9.7 7.6 - 12.9 [facility] nRBC % Auto 0.0 % [facility] LABORATORY nRBC Abs Auto 0.000 0.000 - [facility] RYAN 0.000 [facility] x10(3)/[facility] LABORATORY Specimen Anatomical Collection Method Collection Time Receive d Time (Source) Location / / Volume Laterality Blood specimen 07/05/2017 8:20 PM 017 8:27 (specimen) EST PM EST Resulting Agency Comment Spec In Lab Daphne Shahid MD HEMATOLOGY ORDERABLES Performing Organization Address City/State/ZIP Code Phon e Number [place] [address] APTT (07/05/2017 8:20 PM EST) athologist Signature PTT 32 25 - 35 sec [facility] LABORATORY Comment: The recommended therapeutic range for fu ll dose, unfractionated heparin at [facility] is 80 ? [...] Organization Address City/State/[place] [address] (ABNORMAL) Cardiac Enzymes (LEB/CGP) (07/05/2017 8:20 PM EST) athologist [facility] Troponin-T 2.11 (H) 0.00 - [facility] 0.00 ng/mL [facility] LABORATORY Comment: The 99th percentile [...] additional sample may be indicated. Reference: Third [place] Definition of Myocardial Infarction. Journal of the [...] ORDERABLES Performing Organization Address City/[facility]/ZIP [facility] [place] [address] (ABNORMAL) Magnesium (07/05/2017 8:20 PM EST) P athologist Signature Magnesium 0.68 (L) 0.69 - 1.07 [facility] mmol/L [facility] LABORATORY Specimen Anatomical Collection Method Collection Time Receive d Time (Source) Location / / Volume Laterality Blood specimen 07/05/2017 8:20 PM 017 8:27 (specimen) EST PM EST Resulting Agency Comment Spec In Lab Daphne Shahid MD CHEMISTRY ORDERABLES Performing Organization Address City/[facility]/[place] [address] (ABNORMAL) Basic Metabolic Panel (non-fasting) (07/05/2017 8:20 PM EST) P athologist Signature Glucose Lvl 321 (H) 65 - 199 [facility] mg/dL [facility] Estimated GFR >60 >=60 [facility] LABORATORY Comment: The reported eGFR should be multiplied b y 1.2 for patients. The MDRD is not an appropriate measure o f renal function for patients with body mass extremes or in patients with acute kidney failure. http://Econodata/DHnkdep http://Econodata/DHMCnkf Specimen Anatomical Collection Method Collection Time Receive d Time (Source) Location / / Volume Laterality Blood specimen 07/05/2017 8:20 PM 017 8:27 (specimen) EST PM EST Resulting Agency Comment Spec In Lab Daphne Shahid MD CHEMISTRY ORDERABLES Performing Organization Address City/State/[place] [address] (ABNORMAL) POCT Glucose (07/05/2017 7:32 PM EST) P athologist Signature POC Glucose 296 (H) 65 - 199 [facility] mg/dL [facility] LABORATORY Comment: Supplemental ranges: <140 mg/dL before meals <180 mg/dL all other times of the day Specimen Anatomical Collection Method Collection Time Receive d Time (Source) Location / / Volume Laterality Blood specimen 07/05/2017 7:32 PM 017 7:32 (specimen) EST PM EST Daphne Shahid MD POINT OF CARE TEST ORDERABLE S Performing Organization Address City/State/[place] [address] CARDIAC CATHETERIZATION (07/05/2017 6:47 PM EST) Anatomical Region Laterality Modality Other Specimen (Source) Anatomical Location Collection Method / Collectio n Time Received Time / Laterality Volume Narrative 07/05/2017 7:27 PM EST ?[facility] ? Cardiac Cathete rization/Intervention Report ? Patient Name: Gregory Hoang ? Procedure Date: 07/05/2017 ? A #: [id number] ? Primary Physician: Clarisa, Jet T ? Case #: [id number] ? File Name: [id number] ? Catheterization Order Number: [id number] ? [facility] ? Final Report [place], [place] ? Patient Name: ? Gregory Natalya ?ID#: ?[id number] ? : ?1945 ? Procedure Date: ? [...] presented with: non -STEMI (w/i 7 days). Grand ?Cardiovascular Society angina c lass was IV. [...] Gregory Hoang Procedure Date: 07/05/2017 A #: [id number] Primary Physician: Jet Mckenna Case #: [id number] File Name: [id number] Catheterization Order Number: [id number] [facility] Final Report [place], [place] Patient Name: Gregory Hoang ID#: [id number] : 1945 Procedure Date: July 05, [...] presented with: non-STEMI ( w/i 7 days). Grand Cardiovascular Society angina class was IV. No [...] Mccollum ? (Age): 1945(72y) Med Rec#: ? [id number] ?Sex: ?M ? Site Loc: ? [facility] ?Ht / Wt: ??173(cm)/86(kg) Pt. Loc: ?CCU ? BSA: ?2 Study Date: ?? 07/05/2017 ?Pt. Type: Inpatient Tape: ? Referring: Daphne Shahid ([id number]) Referring: MANDA ALCANTAR Reading: Blade Preston ([id number]) Form Stripper: Dayami Paula BA, [facility] [...] E-wave Vmax ?0.8 ?m/sec ? MV deceleration [id number] ?msec ? MV A-wave Vmax ?0.8 ?m/sec [...] ? Mid-Inferior ?Akinetic ? Mid-Inferoseptal ?Hypokinetic ? [place]-Septal ? Akinetic ? [place]-Anterior ? Hypokinetic ? [place]-Lateral ?Hypokinetic ? [place]-Inferior ? Akinetic ? [place]-Tip ?Akinetic ? This report has been electronically sign ed by: _ Blade Preston MD ? 07/06/2017 08 :53:15 Images reviewed and interpretation [facility] Cardiac Ultrasound Laboratory Procedure Note Blade Preston MD - 07/06/2017Formatt ing of this note might be different from the original. Procedure: Transthoracic Echocardiogram Patient: NATALYA MCBRIDE(Age): [birth year]72y) Med Rec#: [id number] Sex: M Site Loc: [facility] Ht / Wt: 173(cm)/86(kg) Pt. Loc: CCU BSA: 2 Study Date: 07/05/2017 Pt. Type: Inpatie nt Tape: Referring: Daphne Shahid ([id number]) Referring: MANDA ALCANTAR Reading: Blade Preston ([id number]) Form Stripper: Dayami Paula BA, [facility] [...] MV E-wave Vmax 0.8 m/sec MV deceleration [id number] msec MV A-wave Vmax 0.8 m/sec MV [...] Hypokinetic Mid-Posterolateral Hypokinetic Mid-Inferior Akinetic Mid-Inferoseptal Hypokinetic [place]-Septal Akinetic [place]-Anterior Hypokinetic [place]-Lateral Hypokinetic [place]-Inferior Akinetic [place]-Tip Akinetic This report has been electronically sign ed by: _ Blade Preston MD 07/06/2017 08:53:15 Images reviewed and interpretation ver ied [facility] Cardiac Ultrasound Laboratory Daphne Shahid MD ECHO ORDERABLES Differential, Automated (07/05/2017 4:55 PM EST) athologist Signature Neutrophils % 77.0 % [facility] LABORATORY Neutr Abs (ANC) 5.26 1.70 - [facility] 6.10 [facility] x10(3)/[facility] LABORATORY Lymphocytes % 13.3 % [facility] LABORATORY Lymphocytes Abs 0.9 0.9 - 3.2 [facility] x10(3)/[facility] LABORATORY Monocytes % 8.2 % [facility] LABORATORY Monocyte Abs 0.6 0.3 - 0.9 [facility] x10(3)/[facility] LABORATORY Eosinophils % 0.7 % [facility] LABORATORY Eosinophils Abs 0.0 0.0 - 0.4 [facility] x10(3)/[facility] LABORATORY Basophils % 0.4 % [facility] LABORATORY Basophils Abs 0.0 0.0 - 0.1 [facility] x10(3)/[facility] LABORATORY Immature Gran % 0.40 % [facility] [...] Melisa Gran Abs 0.03 0.00 - 0.04 x10(3)/[facility] LABORATORY Specimen Anatomical Collection Method Collection Time Receive d Time (Source) Location / / Volume Laterality Blood specimen 07/05/2017 4:55 PM 017 5:24 (specimen) EST PM EST Resulting Agency Comment Spec In Lab Daphne Shahid MD HEMATOLOGY ORDERABLES Performing Organization Address City/State/[place] [address] (ABNORMAL) Hemogram (07/05/2017 4:55 PM EST) Analysis Performed At Patho logist Time Signature WBC 6.8 4.0 - 9.5 [facility] x10(3)/[facility] LABORATORY RBC 4.67 4.58 - [facility] 5.54 [facility] x10(6)/[facility] LABORATORY Hemoglobin 14.0 13.7 - [place] 16.5 gm/dL [facility] LABORATORY Hematocrit 41.0 40.5 - [place] 48.5 % [facility] LABORATORY MCV 87.8 82.9 - [facility] [address] [facility] LABORATORY MCH 30.0 27.5 - [place] 32.1 pg [facility] LABORATORY MCHC 34.1 32.0 - [place] 35.7 gm/dL [facility] LABORATORY Platelets 197 145 - 357 [facility] x10(3)/[facility] LABORATORY RDWSD 46.4 (H) 36.0 - [place] [address] [facility] LABORATORY RDWCV 14.5 (H) 11.4 - [place] 13.8 % [facility] LABORATORY MPV 9.7 7.6 - 12.9 [facility] LABORATORY nRBC % Auto 0.0 % [facility] LABORATORY nRBC Abs Auto 0.000 0.000 - [place] 0.000 [facility] x10(3)/[facility] LABORATORY Specimen Anatomical Collection Method Collection Time Receive d Time (Source) Location / / Volume Laterality Blood specimen 07/05/2017 4:55 PM 017 5:24 (specimen) EST PM EST Resulting Agency Comment Spec In Lab Daphne Shahid MD HEMATOLOGY ORDERABLES Performing Organization Address City/State/[place] [address] (ABNORMAL) Cardiac Enzymes (LEB/CGP) (07/05/2017 4:55 PM EST) P athologist Signature Troponin-T 1.69 (H) 0.00 - [place] 0.00 ng/mL [facility] LABORATORY Comment: The 99th percentile [...] additional sample may be indicated. Reference: Third [place] Definition of Myocardial Infarction. Journal of the [...] City/[facility]/[place] [address] (ABNORMAL) pro-Brain Natriuretic Peptide (07/05/2017 4:55 PM EST) P athologist Signature ProBNP 1,598 (H) <=125 [facility] pg[facility]mL [facility] LABORATORY Specimen Anatomical Collection Method Collection Time Receive d Time (Source) Location / / Volume Laterality Blood specimen 07/05/2017 4:55 PM 017 5:24 (specimen) EST PM EST Resulting Agency Comment Spec In Lab Daphne Shahid MD CHEMISTRY ORDERABLES Performing Organization Address City/State/[place] [address] Magnesium (07/05/2017 4:55 PM EST) P athologist Signature Magnesium 0.78 0.69 - 1.07 [facility] mmol/L [facility] LABORATORY Specimen Anatomical Collection Method Collection Time Receive d Time (Source) Location / / Volume Laterality Blood specimen 07/05/2017 4:55 PM 017 5:24 (specimen) EST PM EST Resulting Agency Comment Spec In Lab Daphne Shahid MD CHEMISTRY ORDERABLES Performing Organization Address City/State/[place] [address] (ABNORMAL) Basic Metabolic Panel (non-fasting) (07/05/2017 4:55 PM EST) P athologist Signature Glucose Lvl 230 (H) 65 - 199 [facility] mg/dL [facility] [...] [facility] Estimated GFR >60 >=60 [facility] LABORATORY Comment: The reported eGFR should be multiplied b y 1.2 for patients. The MDRD is not an appropriate measure o f renal function for patients with body mass extremes or in patients with acute kidney failure. http://[employer].awesomize.me/DHnkdep http://[employer].awesomize.me/DHMCnkf Specimen Anatomical Collection Method Collection Time Receive d Time (Source) Location / / Volume Laterality Blood specimen 07/05/2017 4:55 PM 017 5:24 (specimen) EST PM EST Resulting Agency Comment Spec In Lab Daphne Shahid MD CHEMISTRY ORDERABLES Performing Organization Address City/[facility]/[place] [address] (ABNORMAL) APTT (07/05/2017 4:55 PM EST) P athologist Signature PTT 41 (H) 25 - 35 sec [facility] LABORATORY Comment: The recommended therapeutic range for fu ll dose, unfractionated heparin at [facility] is 80 ? [...] City/[facility]/[place] [address] (ABNORMAL) POCT Glucose (07/05/2017 4:53 PM EST) athologist Signature POC Glucose 208 (H) 65 - 199 [facility] mg/dL [facility] LABORATORY Comment: Supplemental ranges: [...] City/[facility]/[place] [address] EKG 12 Lead (07/05/2017 4:32 PM EST) Component Value Ref Range Test Analysis Performed Pathologis t Method Time At Signature Ventricular rate 97 BPM MUSE SYSTEM Atrial Rate 97 BPM MUSE SYSTEM P-R Interval 148 ms MUSE SYSTEM QRS Duration 96 ms MUSE SYSTEM Q-T Interval 364 ms MUSE SYSTEM QTC Calculated 462 ms MUSE SYSTEM (Bezet) Calculated P [place] 48 degrees MUSE SYSTEM Calculated R [place] -33 degrees MUSE SYSTEM Calculated T [place] 98 degrees MUSE SYSTEM INTERPRETATION Normal sinus [...] Coronary atherosclerosis of unspecified type of vessel, [place] or graft Cardiomyopathy, ischemic Other specified forms [...] dose on Wed07/07/17 at 2100, Until Discontinued, [place] teeth, Routine Given 07/08/2017 10:06 PM [...] or norepinephrine is ineffective. Call pager # [phone] if initiated. Rate/Dose Change 07/08/2017 7:01 PM [...] if phenyleprine and/or vasopressin ineffective.Call pager # [phone] if initiated., Routine Rate/Dose Change 07/09/2017 1:24 [...] L/min/M2. Maximum volume 2 L. Call house mother for additional fluid orders: pager #[phone]. Rate/Dose Verify 07/08/2017 4:00 AM EST 100 [...]
Routine documented in this encounter Care Teams Ship Washer Relationship Specialty Start Date End Date Lovely Vicente MD PCP - General 04/16/[address] [place] [address] documented as of this encounter
--- OUTSIDE RECORDS SUMMARY | 2022-04-17 08:28 | XMS_ITS | Encounter Summary ---
:1945 Author Organization [facility] Address [facility] [place] [address] Care Team Providers Name Role Phone Lovely Vicente MD Primary Care Provider Reason for Visit Auth/Cert Specialty Diagnoses / Procedures Referred By Contact Refer red To Contact Diagnoses STEMI (ST elevation myocardial infarction) NSTEMI STEMI Procedures CARDIAC CATHETERIZATION NAYE IPI Referral ID Status Reason Start Date Expiration Date Visits Requ ested Visits Authorized [id number] 1 1 Encounter Details Date Type Department Care Team Description 07/07/2017 Surgery Main Operating Room Yuan Webber, @ CABG, USING ARTERIAL Barbara Ocampo MD GRAFT;SINGLE ARTERIAL Hospital [facility] GRAFT (WRVU 33.75) [facility] DR Siddiqu[place] [address] SURGERY [phone] [place], [place] 0[address] (Wo rk) Social History Tobacco [...] in this encounter Discharge Summaries Martha Teague, BENCH WORKER - 07/14/2017 9:38 AM EST Inpatient - Discharge Summary Patient Name: Gregory Hoang Patient Age: 72 y.o. Birthdate: 1945 Language: Czech Race: White Ethnicity: Not nor Admit Date: [...] , @ 1:20p Patient to follow-up with Supervisor Pastry/heart failure team in one week. An appointment will be made for you. You may call [phone] Patient to follow-up with Cardiac Surgery, Dr. Yuan Webber, in ~ 4 weeks with CXR, EKG. Inpatient Provider Contact Information: [facility] Section of Cardiac Surgery [facility] [address] FAX [phone] Discharge Diagnoses (Hospital Problems) Primary Diagnoses: CAD [...] 33.75) performed by Yuan Webber MD at [facility] OR ??? PRO CABG, ARTERY-VEIN, TWO N/A 07/07/2017 @CABG, TWO VENOUS GRAFTS & ARTERIAL GRAFT (WRVU 7.93) performed by Yuan Webber MD at [facility] OR ??? PRO COLONOSCOPY, REMV LESN, SNARE 01/16/2014 COLONOSCOPY, POLYPECTOMY, REMOVAL LESION BY SNARE performed by Nohemi Jaimes MD at [facility] ENDOSCOPY ??? PRO ENDOSCOPY W/VIDEO-ASST VEIN HARVEST, CABG Right 07/07/2017 ENDOSCOPIC HARVEST VEIN(S) FOR CABG (WRVU 0.31) performed by Yuan Webber MD at [facility] OR ??? PRO THYROIDECTOMY 03/28/2013 THYROIDECTOMY, TOTAL OR COMPLETE performed by Manny Mcknight MD at [facility] OR Prior To Admission Medications Prescriptions Prior to Admission Medication Sig Dispense Refill Last Dose ??? levothyroxine (SYNTHROID) 175 mcg Tablet Take 1 tablet by mouth daily. 90 tablet 3 07/05/2017 [id number] ??? ascorbic acid, vitamin C, (VITAMIN C) [...] was admitted to [facility] on 07/05/2017 via the Cardiology Service. During his hospital course, he was taken emergently to the optical lab technician for an ongoing STEMI. An [...] not take or discontinue any prescription or ywzr-emc-cfjokvy medications without asking your doctor or pharmacist [...] Yuan Webber and/or the Cardiac Surgery Physician Track Equipment Operator Team may be reached at . [...] Dr. Yuan Webber. You may use a [place] Track or treadmill but avoid any [...] with the surgeon. Do not ride motorcycles, [employer]'s tractors or horses. Avoid the use of [...] , @ 1:20p Patient to follow-up with Supervisor Pastry/heart failure team in one week. Appointment will be made for you. You may call [phone] Patient to follow-up with Cardiac Surgery, Dr. Yuan Webber, in ~ 4 weeks with CXR, EKG. Cardiac Rehabilitation: Gregory Hoang was seen today regarding participation in the outpatient Phase 2 Cardiac Rehabilitation at [facility]. The patient agrees to a referral to this program. The referral will be sent at discharge and the patient should be contacted by the Program within 1- 2 weeks from discharge. ?? Future Appointments and Orders Future Appointments Provider Department Dept Phone 09/07/2017 3:00 PM LAB, THREE L Lab 3L [facility] [phone] 09/07/2017 4:00 PM Luz Prescott MD Endocrinology at [place] [phone] Future Orders Complete By Expires EKG 12 Lead [EKG1 Custom] 08/14/2017 02/13/2018 Process Instructions: Scheduling Instructions: Questions: Which DH location will this be performed?: [place] Is a rhythm strip needed?: No If EKG Reason is Pre-op Evaluation, indicate diagnosis for surgery.: XR Chest PA & Lateral (Generic) [[id number] Custom] 08/14/2017 02/13/2018 Process Instructions: Scheduling Instructions: Questions: Where will study be performed?: [place] [facility] Portable exam?: Reason for exam and clinical history: CABG x 3 Other pertinent information: Stat read required?: Date of injury if applicable: Requested Time: Referral to Cardiac Rehab [MRC923 Custom] As directed Process Instructions: If no progress note charted, please enter Clinical details in comments. Scheduling Instructions: Questions: My question or request is: s/p CABG. Cardiac rehab at [facility] Referral to Home Health - at DISCHARGE [RSS6301 CPT(R)] As directed Process Instructions: Scheduling Instructions: Comments: DOCUMENTATION FOR VNA SERVICES (INCLUDING THOSE PATIENTS WITH MEDICARE COVERAGE REQUIRING HOME VNA SERVICES AND/OR HOSPICE SERVICES) PATIENT'S LOCATION: Gregory Hoang [address] [place] [address] [place] [id number] (home) Telephone Information: Center Hole Reamer's Name: self In discussion with the attending physician, it is certified that this patient is under their care and that they, or a Nurse Practitioner, or Physician Track Equipment Operator who is working directly with them, [...] HEALTH AGENCY: [facility] ([facility] [place] [employer]-is in [place]) PHONE: [phone] FAX: [phone] RN orders: Cardiopulmonary assessment, incisional assessment, assess vital signs, assessment of rehab progress, medication management and effectiveness, home safety evaluation. Please draw INR if indicated and send result to:Dr Vicente [phone] PT ORDERS: Continue rehab for endurance, gait stability and strength with mobility and transfers. Home safety evaluation. Home exercise program if appropriate. Start of Care Date:24-48 hours after discharge SPECIAL INSTRUCTIONS: For any follow up questions, needs, or issues please call the Cardiac Surgery Office at [phone] FOR MEDICARE ONLY: (please delete this section [...] Questions: Agency name and contact information: [facility] Patient location post discharge: home What services are requested: Registered Nurse Physical Therapy Start date: Responsible MD post discharge contact info: PCP Arrangements for VNA/home care: As above. VN RN OR PCP TO PLEASE REMOVE CHEST TUBE SUTURES ON OR AFTER 07/17/2017 Signed: Martha Teague APRN [facility] Section of Cardiac Surgery [facility] [phone] FAX [phone] Date: 07/14/2017 CC: MD Ivania Cr Betsy, PA [address] [place] [phone] documented in this encounter Discharge Instructions Discharge [...] ongoing outpatient anticoagulation management: ?? Provider/Team/Clinic: Dr Viecnte ? 7. If you have not received [...] not take or discontinue any prescription or fnyh-ibp-aqtnwcq medications without asking your doctor or pharmacist [...] Yuan Webber and/or the Cardiac Surgery Physician Track Equipment Operator Team may be reached at . [...] Dr. Yuan Webber. You may use a [place] Track or treadmill but avoid any [...] with the surgeon. Do not ride motorcycles, [employer]'s tractors or horses. Avoid the use of [...] @ 1:20p ?? Patient to follow-up with Supervisor Pastry/heart failure team in one week. An appointment has been made for you, you can call [phone] ?? Patient to follow-up with Cardiac Surgery, Dr. Yuan Webber, in ~ 4 weeks with CXR, EKG. ? Cardiac Rehabilitation: Gregory Hoang??was seen today regarding participation in the outpatient Phase 2 Cardiac Rehabilitation at [facility]. ?? The patient agrees to a referral to this program.? The referral will be sent at discharge and the patient should be contacted by the Program within 1- 2 weeks from discharge. ? Future Appointments and Orders Future Appointments Provider Department Dept Phone ?? 09/07/2017 3:00 PM LAB, THREE L Lab 3L [facility] [phone] ?? 09/07/2017 4:00 PM Luz Prescott MD Endocrinology at [place] [phone] Future Orders Complete By Expires ?? EKG 12 Lead [EKG1 Custom] 08/14/2017 02/13/2018 ?? Process Instructions: ? Scheduling Instructions: ? Questions: ? Which location will this be performed?: [place] ?? Is a rhythm strip needed?: No ?? If EKG Reason is Pre-op Evaluation, indicate diagnosis for surgery.: ?? XR Chest PA & Lateral (Generic) [[id number] Custom] 08/14/2017 02/13/2018 ?? Process Instructions: ? Scheduling Instructions: ? Questions: ? Where will study be performed?: [place] [facility] ?? Portable exam?: ?? Reason for exam and clinical history: CABG x 3 ?? Other pertinent information: ?? Stat read required?: ?? Date of injury if applicable: ?? Requested Time: ?? Referral to Cardiac Rehab [QDR598 Custom] As directed ? Process Instructions: ?? If no progress note charted, please enter Clinical details in comments. ?? Scheduling Instructions: ? Questions: ? My question or request is: s/p CABG. Cardiac rehab at [facility] ? Arrangements for VNA/home care: [...] - 07/14/2017 2:34 PM EST The patient/sales representatives has been provided a list of Home Health Agencies/DME vendors which serve their preferred geographic area. A letter describing our affiliations was reviewed with them and theywere educated about their right to choose where referrals are placed. Patient requests referral to [facility]. PHONE: [phone] FAX: [phone] Expected date of discharge: 07/14 Referral routed to the Vehicle Body Sander for matching with agency/vendor and to provide [...] – [place] Endocrinology Diabetes Management Pager [phone] minutes of this 35 minute visit was spent with the patient in counseling on diabetes and treatment plan, reviewing all glucose and insulin data as well as relevant laboratory results with the patient, and coordination of care on the inpatient unit including nursing and primary team. Zulma Power RN - 07/14/2017 10:30 AM EST The patient/sales representatives has been provided a list of Home Health Agencies/DME vendors which serve their preferred geographic area. A letter describing our affiliations was reviewed with them and theywere educated about their right to choose where referrals are placed. Patient requests referral to : [facility] ([facility] [place] [employer]-is in [place]) PHONE: [phone] FAX: [phone]. Expected date of discharge: 07/14/17 Referral routed to the Vehicle Body Sander for matching with agency/vendor and to provide [...] hours. If BG remains greater than 240, ttomht07 units (no more than three times) &??call [...] #6 s/p CABG X3. FSBG 80 at [place], reports no symptoms but did drink some [...] – [place] Endocrinology Diabetes Management Pager [phone] minutes of this 25 minute visit [...] of infiltration/extravasation Discussed plan of care with PROVIDER RELATIONS REPRESENTATIVE and RN. Elevate exrtemity and apply intermittent Warm compresses. Name of MD contacted Dr. Shaw Brown 07/13/2017 @ 0666 Name of RN contacted Ale Rangel RN Name of Pharmacist if consulted NA Name of Plastics MD ( if consulted) NA (Mandatory photo for infiltrations/ extravasations scoring a stage 2 or greater, but recommended forstage 1)( include measuring tape and identifier in the photo) TOOLS ADMINISTRATOR CARING FOR THIS PATIENT WILL CONTINUE [...] measuring tape and identifier in the photo) TOOLS ADMINISTRATOR CARING FOR THIS PATIENT WILL CONTINUE [...] regard to both infiltrates addressed by this editorial writer.All of MrMadiha Hoang's responses were entirely appropriate. Images of infiltrates attached here. L Martha Teague, BENCH WORKER - 07/13/2017 8:01 AM EST Cardiac Surgery Progress Note: ID: [id number] 72 year old male POD#6 s/p CABGx3 [...] ?? I have met with the patient/sales representatives to discuss discharge planning needs. I have provided the [facility] [place] Office of Care Management letter from the Welding Estimator pertaining to rehab referrals. I have also provided a letter describing our affiliations within the [facility] and educated them about their right to choose where referrals are placed. ?? I reviewed the different levels of rehab including SNF, swing, acute and LTAC with the patient/sales representatives. ?? The patient/sales representatives has been provided a list of facilities within their preferred geographic area. ?? I have requested that the patient/sales representatives provide at least three choices for referral. ?? The patient/sales representatives have requested referrals to: ?? [facility]. [facility] ?? 2. [facility] ?? 3. More to be entered ?? Expected date of discharge: 07/14 Note routed to Vehicle Body Sander who will communicate referrals to facilities and [...] hours. If BG remains greater than 240, oupvnc30 units (no more than three times) & [...] hours. If BG remains greater than 240, ehoiqx17 units (no more than three times) & call for new basal insulin orders. ??If less than 240 after two hours, give no insulin and resume prior schedule. Will continue to follow Katerin Azul APRN [facility] [place]ocr[place] Diabetes Management Pager [phone] 20 minutes of this 35 minute visit was spent with the patient in counseling on diabetes and treatment plan, reviewing all glucose and insulin data as well as relevant laboratory results with the patient, and coordination of care on the inpatient unit including nursing and primary team. Makayla Stevenson APRN - 07/12/2017 9:52 AM EST Cardiac Surgery Progress Note: ID: [id number] 72 year old male POD#5 s/p CABGx3 [...] 07/11/2017 7:18 PM EST Patient arrived from [facility]. VSS. MSI dressing pulled off [...] hours. If BG remains greater than 240, upuvox87 units (no more than three times) & [...] AM EST Cardiac Surgery Progress Note: ID: [id number] 72 year old male POD#4 s/p CABGx3 [...] hours. If BG remains greater than 240, vpmthe74 units (no more than three times) & [...] AM EST Cardiac Surgery Progress Note: ID: [id number] 72 year old male POD#3 s/p CABGx3 [...] Gas) No results found for: PHART, PO2ART, NPD0PTD Assessment/Plan: 72 year old male POD#3 s/p [...] Mami Thao - 07/09/2017 6:29 PM EST J2Ee Programmer Encounter Note Patient Name: Gregory Hoang : [id number] MR#: [id number] Admit Date: 07/05/2017 4:20 PM Hospital Day 4 days Narrative: Patient was sitting in chair, hugging heart pillow, opened his eyes, nodding to come into room Assessment: Patient was sleepy. Intervention and Outcome: Introduced levee superintendent services and patient reached his hand out in appreciation. Follow-up: J2Ee Programmer remains available for support. Time in Direct [...] 07/09/2017 10:45 AM EST Report given to administrative staff supervisor to cover care Maddison Cee PA - 07/09/2017 9:00 AM EST Cardiac Surgery Progress Note: ID: [id number] 72 year old male POD#2 s/p CABGx3 [...] completed shifts: In: 7977.4 [I.V.:7477.4; Other:500] Out: 3475 [Urine:3000; Other:615] I- 4 L O- 2.7 [...] Signed: STEPHANIE Iqbal [facility] Section of Cardiac Surgery Date: 07/09/2017 [...] when IABP d/c'ed. Gretchen Carolina, PT Pager [phone] Maddison Cee PA - 07/08/2017 11:27 AM EST Cardiac Surgery Progress Note: ID: [id number] 72 year old male POD#1 s/p CABGx3 [...] Signed: STEPHANIE Iqbal [facility] Section of Cardiac Surgery Date: 07/08/2017 [...] in place in R femoral. No hematoma. SWITCH FOREMAN- Intact Psych- Anxious Skin- Dry, no peripheral [...] intact. IABP in place in R femoral. SWITCH FOREMAN- Intact Psych- Anxious Skin- Dry, no peripheral [...] note for details. DAPHNE SHAHID MD Pager [phone] Jet Mckenna MD - 07/05/2017 6:48 PM EST Preliminary Cardiac Catheterization Procedure Note: Procedure(s) performed: Left heart cath, IABP insertion Access: Right WILDLIFE BIOSTATION RESEARCH ECOLOGIST-->8fr IABP A time-out was conducted prior to [...] Heparin gtt maintained. Pt transferred to optical lab technician. documented in this encounter H&P Notes Daphne Shahid MD - 07/05/2017 6:08 PM EST CARDIOLOGY HISTORY & PHYSICAL EXAM Date of Admission: 07/05/2017 ( Hospital Day 0 days ) Responsible Attending: Daphne Shahid MD PCP: Lovely Vicente MD PCP#: [phone] Patient Active Problem List Diagnosis Code ??? [...] load with heparin drip and transferred to [facility]. While there, continued sob, question of chest pain. Stat TTE showing WMA diffusely and EF around 20%. No significant valvular disease. Taken to the optical lab technician urgently for ongoing STEMI. [facility] Labs: INR 1.0 WBC 5.88 [...] I/O - s/p lasix in the optical lab technician, redose to aim net neg [...] Medicine, PGY-2 Cardiology S1, Team Pager # [phone] CARDIOLOGY ATTENDING NOTE Patient: Gregory Hoang Date [...] amenable for PCI. DAPHNE SHAHID MD Pager [phone] documented in this encounter Miscellaneous Notes Consult Note - Daphne Shahid MD - 07/14/2017 11:46 AM EST Heart Failure Service Inpatient Consult Note Gregory Hoang Date of : 1945 Age: 72 y.o. Today's date: 07/14/17 PCP: Lovely Vicente MD GLASS LOADING EQUIPMENT TENDER: None Place of Service: C451-A Reason for [...] 33.75) performed by Yuan Webber MD at [facility] OR ??? PRO CABG, ARTERY-VEIN, TWO N/A 07/07/2017 @CABG, TWO VENOUS GRAFTS & ARTERIAL GRAFT (WRVU 7.93) performed by Yuan Webber MD at [facility] OR ??? PRO COLONOSCOPY, REMV LESN, SNARE 01/16/2014 COLONOSCOPY, POLYPECTOMY, REMOVAL LESION BY SNARE performed by Nohemi Jaimes MD at [facility] ENDOSCOPY ??? PRO ENDOSCOPY W/VIDEO-ASST VEIN HARVEST, CABG Right 07/07/2017 ENDOSCOPIC HARVEST VEIN(S) FOR CABG (WRVU 0.31) performed by Yuan Webber MD at [facility] OR ??? PRO THYROIDECTOMY 03/28/2013 THYROIDECTOMY, TOTAL OR COMPLETE performed by Manny Mcknight MD at [facility] OR Outpt Meds: Current Outpatient Prescriptions [...] following studies: EKG 07/14/17: NSR 75 bpm, PILLOW AGENT anterior infarct, LAD CXR 07/11/17: FINDINGS: Sternotomy wires. The patient has been extubated, left chest tube removed, and [place]-Suzi catheter removed since the 07/07/2017 study. Atelectasis [...] was discussed with Zehra. Jaden Kelley MD Fruit Packer Pager [phone] CARDIOLOGY ATTENDING NOTE Patient: Gregory Hoang Date [...] heart failure clinic. DAPHNE SHAHID MD Pager [phone] Plan of Care - Alden Chavarria, MID LEVEL DEVELOPER - 07/14/2017 11:35 AM EST Problem: Patient [...] Discharge Disposition: home with assist Alden Chavarria, MID LEVEL DEVELOPER Pager: [phone] Inpatient Physical Therapy Problem: Acute Rehab Services [...] sit/sit to supine -- Bed Mobility Goal, [place] Level supervision required -- Bed Mobility Goal, [...] - 3 days -- Gait Training Goal, [place] Level supervision required -- Gait Training Goal, [...] days -- Transfer Training Goal, Activity Type bdh-ui-iwgji/eovju-vu-tdy;mhh-up-wresw/yzrqk-gg-hor;toilet -- Transfer Train Goal, [place] Level supervision required -- Transfer Training Goal, [...] keeping present for 2 days per family. Inside Upholsterer noted of frustrations, house keeping sent to room. Patient offered showered twice, refused. at bedside, frustrated that shower not complete, informed that patient had refused several times. requesting to see GREENS TIER, paged sent to Martha, will come to bedside (middle of consult). not willing to wait, Martha notified that family had gone home. Encouraged to come for morning rounds a t 8am. Diabetes team at bedside - insulin adjustments made. Call cabello in reach. Continue to monitor. PLAN MOVING FORWARD: Ambulate, dressing changes BID, Please change drsg at 4am per Martha GREENS TIER request. INDIVIDUALIZED FALL PREVENTION INTERVENTIONS: Patient-specific [...] levels on the lower side, 60ml of Valentines juice given after a FS of 80. [...] Conf 07/13/17 0502 Interdisciplinary Rounds/Family Conf Participants continuous pillowcase cutter;dietitian/nutrition services;nursing;occupational therapy;patient;pharmacy;physical therapy;physician Plan of Care - [...] monitoring required during toileting and ADLs]: RN PROVIDER RELATIONS REPRESENTATIVE Surveillance [continuous indirect monitoring]: Barrett Monitor CPG [...] Anticipated Discharge Disposition: home with assist Pager: [phone] CLARISSA SEGAL, PT 07/12/2017 Physical Therapy Rehabilitation [...] to sit/sit to supine Bed Mobility Goal, [place] Level supervision required Bed Mobility Goal, Additional Goal adheres to psternal precautions for transfer Goal: Gait Training Goal Stand Alone Therapy Goal Outcome: Ongoing (Interventions Implemented as Appropriate) 07/12/17 1225 Gait Training Goal Gait Training Goal, Date Established 07/12/17 Gait Training Goal, Time to Achieve 2 - 3 days Gait Training Goal, [place] Level supervision required Gait Training Goal, Assist [...] 3 days Transfer Training Goal, Activity Type dll-by-diwfh/zembf-eb-ouk;ryy-jl-uvuns/cxevk-tk-qtk;toilet Transfer Train Goal, [place] Level supervision required Transfer Training Goal, Additional Goal adheres to sternal precautions during transfer Consult Note - Octavia Vaughn RN - 07/12/2017 10:50 AM EST [facility] [place] Gregory Hoang was seen today regarding participation in the outpatient Phase 2 Cardiac Rehabilitation at [facility]. The patient agrees to a [...] IV site, amio to other piv and AP OPERATOR at bedside to help assess, IV [...] staff, he stood and marched in place. [place] weak, wanting to sit back down. Remained [...] Health/Prescription Coverage: Primary Insurance: MEDICARE Secondary Insurance: [employer] Prescription Coverage: yes Preferred Pharmacy: [facility] [place] Other: none Primary Care Provider: Lovely Vicente MD [phone] Patient/Caregiver Goals of Treatment:live and get my breath back Potential Needs for Transition of Care: Rehab/SNF: [facility] Home Health: DME: TBD Dialysis: na Community Resources: available Transportation: yes Other: none Anticipated Barriers to Discharge/Special Considerations: none Plan: Likely SNF Rehab before home A member of the Care Management team will continue to monitor progress, follow for continuity of care and assist with transition of care planning. ERLIN Weiss Pager: [phone] Consult Note - Katerin Azul RN - [...] to d/c gtt and start CF. intermediate manager diabetes care: Medications - Outpatient treatment regimen recommendations pending based on the hospital course. Monitoring - continue BG tid ac & hs Diet - low fat/low carb diet Exercise - weight-bearing exercise 30 min/day, as tolerated Thank you for allowing us to provide care for your patient W/E coverage, Dr. Jeane Tatum, pager [phone] Katerin Azul APRN Endocrinology Diabetes Management Pager [phone] Plan of Care - Stephanie Godoy RN [...] Operative Note Patient Name: Gregory Hoang : [id number] MR#: [id number] Case Date: 07/07/2017 Surgeon: Surgeon(s) and Role: * Yuan Webber MD - Primary * Michael Drake PA - Physician Track Equipment Operator * Linda Flores PA - Physician Track Equipment Operator Preoperative diagnosis: 3VD Postoperative diagnosis: CAD, [...] Operative Note Patient Name: Gregory Hoang : [id number] MR#: [id number] Case Date: 07/07/2017 Surgeon: Surgeon(s) and Role: * Yuan Webber MD - Primary * Michael Drake PA - Physician Track Equipment Operator * Linda Flores PA - Physician Track Equipment Operator Preoperative diagnosis: 3VD Postoperative diagnosis: CAD, [...] code status: Full Code Katty Hahn, MS3 [facility] [facility] Cardiology S1 (Pager [phone]) Plan of Care - Emelia Ibarra RN [...] MD at [facility] MAIN OR Social History: Social [...] with other involved physicians Yuan Webber MD [phone] Med Student Progress Note - Katty Hahn [...] BiPAP - s/p lasix in the optical lab technician, was net -1.5L - s/p [...] insulin drip - hold metformin - f/u [facility] ?? #Home Meds - continue levothyroxine 175mcg - CPAP at night ?? # Routine - DVT PPx: heparin drip - Diet: Healthy heart diet, NPO at midnight for CABG tomorrow - Code Status: FULL - Dispo: CVCC Katty Hahn, M3 [facility] Cardiology S1 (Pager [phone]) Plan of Care - Stephanie Godoy RN - 07/06/2017 5:00 AM EST Problem: Patient Care Overview Goal: Plan of Care Review 07/06/17 5606 Coping/Psychosocial Plan Of Care Reviewed With patient;family [...] urinal without difficulty. Lasix given in optical lab technician, 1.4 L out at this [...] Outcome: Ongoing (Interventions Implemented as Appropriate) 07/06/17 2556 Cardiac: ACS (Acute Coronary Syndrome) Problems Assessed [...] Dolan MD [facility] [address] [place] [address] (Wo rk) 05/28/2022 Laboratory Appointment Lab 05/28/2022 Office Visit Cardiology Zulma Dolan [place] [facility] [place] [address] Liz Poole PA [facility] [place] [address] 06/10/2022 Office Visit Dermatology Laura Scherer MD [facility] [address] [place], [place] [address] (Wo rk) Scheduled Orders Name [...] procedure are i n the results section. 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 07/15/2017 12:00 Res ults for [...] [place] [place] [place] AM [...] ([facility] [place] [place] PM [...] [place] [place] [place] PM [...] 2017 EXAMINATION: XR CHEST PA AND LATERAL (TileIC) CLINICAL HISTORY: CABG x 3 TECHNIQUE: PA [...] Teague APRN IMG DX ORDERABLES SCAN DOC: VAULT MECHANIC (07/15/2017 12:00 AM EST) Narrative 07/15/2017 [...] 186 65 - 199 BARBARA DAVIS mg/dL [facility], [...] City/State/ZIP Code Phon e Number [place] [id number] [facility] [address] POCT Glucose (07/14/2017 7:52 AM EST) athologist Signature POC Glucose 126 65 - [address] [facility] [...] Address City/State/ZIP Code Phon e Number [address] (ABNORMAL) Prothrombin Time (07/14/2017 [...] Address City/State/ZIP Code Phon e Number [address] Potassium (07/14/2017 4:46 AM [...] Address City/State/ZIP Code Phon e Number [address] POCT Glucose (07/14/2017 4:34 AM EST) athologist Signature POC Glucose 115 65 - 199 [facility] [place] mg/dL [facility] [...] TEST ORDERABLE S Performing Organization Address City/[facility]/ZIP Code Phon e Number [address] POCT Glucose (07/13/2017 11:33 PM EST) athologist Signature POC Glucose 132 65 - 199 [place] mg/dL [facility] [...] TEST ORDERABLE S Performing Organization Address City/[facility]/ZIP Code Phon e Number [address] POCT Glucose (07/13/2017 9:25 PM EST) athologist Signature POC Glucose 121 65 - 199 [place] mg/dL [facility] [...] Address City/State/ZIP Code Phon e Number [address] POCT Glucose (07/13/2017 4:55 PM EST) P athologist Signature POC Glucose 79 65 - 199 [facility] [place] mg/dL [facility] [...] Address City/State/ZIP Code Phon e Number [address] POCT Glucose (07/13/2017 11:16 AM EST) P athologist Signature POC Glucose 163 65 - 199 [place] mg/dL [facility] [facility] [...] Address City/State/ZIP Code Phon e Number [address] POCT Glucose (07/13/2017 8:07 AM EST) P athologist Signature POC Glucose 96 65 - 199 [place] mg/dL [facility] [facility] [...] TEST ORDERABLE S Performing Organization Address City/[facility]/[place] [address] (ABNORMAL) Prothrombin Time (07/13/2017 [...] APRN HEMATOLOGY ORDERABLES Performing Organization Address City/[facility]/[place] [address] (ABNORMAL) Basic Metabolic Panel [...] or in patients with acute kidney failure. [email or web address] [email or web address] Specimen Anatomical Collection Method Collection Time Receive d Time (Source) Location / / Volume Laterality Blood specimen 07/13/2017 4:26 AM 017 4:46 (specimen) EST AM EST Resulting Agency Comment Spec In Lab Makayla Wilson APRN CHEMISTRY ORDERABLES Performing Organization Address City/[facility]/ZIP Code Phon e Number [address] POCT Glucose (07/13/2017 3:52 AM EST) P athologist Signature POC Glucose 93 65 - [address] [facility] [...] Organization Address City/State/[place] [address] POCT Glucose (07/13/2017 12:21 AM EST) athologist Signature POC Glucose 80 65 - 199 [place] mg/dL [facility] [facility] [...] Address City/State/ZIP Code Phon e Number [address] POCT Glucose (07/12/2017 8:22 PM EST) athologist Signature POC Glucose 119 65 - 199 [facility] [place] mg/dL [facility] [...] Address City/State/ZIP Code Phon e Number [address] POCT Glucose (07/12/2017 4:02 PM EST) athologist Signature POC Glucose 114 65 - 199 [facility] [place] mg/dL [facility] [...] Organization Address City/State/[place] [address] POCT Glucose (07/12/2017 11:28 AM EST) athologist Signature POC Glucose 164 65 - 199 [facility] [facility] [...] Address City/State/ZIP Code Phon e Number [address] POCT Glucose (07/12/2017 7:34 AM EST) athologist Signature POC Glucose 109 65 - 199 [facility] [...] Organization Address City/State/[place] [address] (ABNORMAL) Basic Metabolic Panel (non-fasting) (07/12/2017 4:11 AM EST) athologist Signature Glucose Lvl 92 65 - 199 [facility] [...] or in patients with acute kidney failure. [email or web address] [email or web address] Specimen Anatomical Collection Method Collection Time Receive d Time (Source) Location / / Volume Laterality Blood specimen 07/12/2017 4:11 AM 017 8:57 (specimen) EST AM EST Resulting Agency Comment Spec In Lab Makayla Katie QUINONES CHEMISTRY ORDERABLES Performing Organization Address City/State/ZIP [place] [address] (ABNORMAL) Prothrombin Time (07/12/2017 [...] APRN HEMATOLOGY ORDERABLES Performing Organization Address City/[facility]/[place] [address] Potassium (07/12/2017 4:11 AM [...] APRN CHEMISTRY ORDERABLES Performing Organization Address City/[facility]/[place] [address] POCT Glucose (07/12/2017 4:10 AM EST) athologist Signature POC Glucose 90 65 - 199 [facility]/dL [facility] [facility] [...] TEST ORDERABLE S Performing Organization Address City/[facility]/[place] [address] POCT Glucose (07/11/2017 11:57 PM EST) athologist Signature POC Glucose 98 65 - 199 [facility]/dL [facility] [facility] [...] Organization Address City/State/[place] [address] POCT Glucose (07/11/2017 8:32 PM EST) P athologist Signature POC Glucose 146 65 - [address] [facility] [...] Organization Address City/State/[place] [address] XR Chest PA & [...] e xtubated, left chest tube removed, and [place]-Suzi catheter removed since the study. Atelectasis at [...] e xtubated, left chest tube removed, and [place]uzi catheter removed since the study. Atelectasis at [...] [facility] [...] TEST ORDERABLE S Performing Organization Address City/[facility]/[place] [address] POCT Glucose (07/11/2017 11:55 AM EST) athologist Signature POC Glucose 176 65 - 199 [place] mg/dL [facility] [...] Organization Address City/State/[place] [address] POCT Glucose (07/11/2017 7:53 AM EST) athologist Signature POC Glucose 189 65 - 199 [facility]/dL [facility] [...] TEST ORDERABLE S Performing Organization Address City/[facility]/ZIP [facility] Phon e Number [address] POCT Glucose (07/11/2017 4:22 AM EST) athologist Signature POC Glucose 151 65 - 199 [facility]/dL [facility] [...] TEST ORDERABLE S Performing Organization Address City/[facility] Phon e Number [address] Potassium (07/11/2017 2:20 AM [...] Address City/State/ZIP Code Phon e Number [address] POCT Glucose (07/11/2017 12:17 AM EST) athologist Signature POC Glucose 162 65 - 199 [place] mg/dL [facility] [...] TEST ORDERABLE S Performing Organization Address City/[facility]/ZIP Code Phon e Number [address] POCT Glucose (07/10/2017 8:47 PM EST) athologist Signature POC Glucose 191 65 - 199 [place] mg/dL [facility] [...] TEST ORDERABLE S Performing Organization Address City/[facility]/ZIP Code Ph[place] [address] POCT Glucose (07/10/2017 4:06 PM EST) athologist Signature POC Glucose 131 65 - 199 [place] mg/dL [facility] [...] Organization Address City/State/[place] [address] POCT Glucose (07/10/2017 3:08 PM EST) athologist Signature POC Glucose 151 65 - 199 BARBARA ZHAORYAN mg/dL [facility] [...] Address City/State/ZIP Code Phon e Number [address] POCT Glucose (07/10/2017 2:25 PM EST) athologist Signature POC Glucose 146 65 - 199 [facility] [place] mg/dL [facility] [...] Address City/State/ZIP Code Phon e Number [address] POCT Glucose (07/10/2017 1:23 PM EST) athologist Signature POC Glucose 166 65 - 199 BARBARA ZHAORYAN mg/dL [facility] [...] Organization Address City/State/[place] [address] POCT Glucose (07/10/2017 11:52 AM EST) P athologist Signature POC Glucose 157 65 - 199 [place]BAR[place] RYAN mg/dL [facility] [...] Address City/State/ZIP Code Phon e Number [address] POCT Glucose (07/10/2017 11:01 AM EST) athologist Signature POC Glucose 158 65 - 199 [facility] [place] mg/dL [facility] [...] Address City/State/ZIP Code Phon e Number [address] POCT Glucose (07/10/2017 9:54 AM EST) athologist Signature POC Glucose 160 65 - 199 BARBARA ZHAORYAN mg/dL [facility] [...] Organization Address City/State/[place] [address] POCT Glucose (07/10/2017 8:58 AM EST) athologist Signature POC Glucose 183 65 - 199 BARBARA ZHAORYAN mg/dL [facility] [...] Organization Address City/State/[place] [address] POCT Glucose (07/10/2017 8:01 AM EST) athologist Signature POC Glucose 173 65 - 199 [place] mg/dL [facility] [...] Address City/State/ZIP Code Phon e Number [address] POCT Glucose (07/10/2017 7:05 AM EST) athologist Signature POC Glucose 166 65 - 199 [place] mg/dL [facility] [...] Address City/State/ZIP Code Phon e Number [address] POCT Glucose (07/10/2017 6:00 AM EST) P athologist Signature POC Glucose 162 65 - [address] [facility] [...] Address City/State/ZIP [place] [address] (ABNORMAL) Differential, Automated (07/10/2017 4:28 AM EST) Patholo gist Method Time Signature Neutrophils % 87.9 % [facility] LABORATORY Neutr Abs (ANC) 10.70 (H) 1.70 - [facility] 6.10 [facility] x10(3)/[facility] L LABORATORY Lymphocytes % 3.9 % [facility] LABORATORY Lymphocytes Abs 0.5 (L) 0.9 - 3.[address] [facility] x10(3)/[facility] LABORATORY Monocytes % 7.0 % [facility] LABORATORY Monocyte Abs 0.8 0.3 - 0.[address] [facility] x10(3)/[facility] LABORATORY Eosinophils % 0.3 % [facility] LABORATORY Eosinophils Abs 0.0 0.0 - 0.[address] [facility] x10(3)/[facility] LABORATORY Basophils % 0.2 % [facility] LABORATORY Basophils Abs 0.0 0.0 - 0.[address] [facility] x10(3)/[facility] LABORATORY Immature Gran % 0.70 [...] Address City/State/ZIP [place] [address] (ABNORMAL) Hemogram (07/10/2017 4:28 AM EST) Analysis Performed At Patho logist Time Signature WBC 12.2 (H) 4.0 - 9.[address] [facility] x10(3)/[facility] LABORATORY RBC 3.31 (L) 4.58 - [facility] 5.54 [facility] x10(6)/[facility] LABORATORY Hemoglobin 9.8 (L) 13.7 - [facility] 16.5 gm/dL [facility] LABORATORY Hematocrit 30.0 (L) 40.5 - [facility] 48.5 % [facility] LABORATORY MCV 90.6 82.9 - [facility] 93.1 [facility] LABORATORY MCH 29.6 27.5 - [facility] 32.1 pg [facility] LABORATORY MCHC 32.7 32.0 - [facility] 35.7 gm/dL [facility] LABORATORY Platelets 135 (L) 145 - [address] [facility] x10(3)/[facility] LABORATORY RDWSD 50.8 (H) 36.0 - [facility] 45.0 [facility] LABORATORY RDWCV 15.4 (H) 11.4 - [facility] 13.8 % [facility] LABORATORY MPV 10.0 7.6 - 12.9 [facility] LABORATORY nRBC % Auto 0.0 % [facility] LABORATORY nRBC Abs Auto 0.000 0.000 - [facility] 0.000 [facility] x10(3)/[facility] LABORATORY Specimen Anatomical Collection Method Collection Time Receive d Time (Source) Location / / Volume Laterality Blood specimen 07/10/2017 4:28 AM 017 4:36 (specimen) EST AM EST Resulting Agency Comment Spec In Lab Yuan Webber MD HEMATOLOGY ORDERABLES Performing Organization Address City/[facility]/ZIP [place] [address] (ABNORMAL) Basic Metabolic Panel [...] or in patients with acute kidney failure. [email or web address] [email or web address] Specimen Anatomical Collection Method Collection Time Receive d Time (Source) Location / / Volume Laterality Blood specimen 07/10/2017 4:28 AM 017 4:36 (specimen) EST AM EST Resulting Agency Comment Spec In Lab Yuan Webber MD CHEMISTRY ORDERABLES Performing Organization Address City/[facility]/[place] [address] POCT Glucose (07/10/2017 4:26 AM EST) P athologist Signature POC Glucose 176 65 - 199 [facility] mg/dL [facility] [...] Organization Address City/State/[place] [address] (ABNORMAL) POCT Glucose (07/10/2017 3:06 AM EST) athologist Signature POC Glucose 204 (H) 65 - 199 [facility] mg/dL [facility] [...] Organization Address City/State/[place] [address] (ABNORMAL) POCT Glucose (07/10/2017 2:10 AM EST) athologist Signature POC Glucose 203 (H) 65 - 199 [facility] mg/dL [facility] [...] Address City/State/ZIP Code Phon e Number [address] POCT Glucose (07/10/2017 1:09 AM EST) P athologist Signature POC Glucose 196 65 - 199 [place] ZHA[place] mg/dL [facility] [...] Address City/State/ZIP Code Phon e Number [address] POCT Glucose (07/10/2017 12:10 AM EST) athologist Signature POC Glucose 173 65 - 199 [place] mg/dL [facility] [...] Address City/State/ZIP Code Phon e Number [address] POCT Glucose (07/09/2017 11:01 PM EST) athologist Signature POC Glucose 140 65 - 199 [place] mg/dL [facility] [...] Organization Address City/State/[place] [address] POCT Glucose (07/09/2017 10:05 PM EST) athologist Signature POC Glucose 144 65 - 199 [place] mg/dL [facility] [...] Address City/State/ZIP Code Phon e Number [address] POCT Glucose (07/09/2017 9:31 PM EST) athologist Signature POC Glucose 121 65 - 199 [place] mg/dL [facility] [...] Address City/State/ZIP Code Phon e Number [address] POCT Glucose (07/09/2017 9:03 PM EST) athologist Signature POC Glucose 98 65 - 199 [place] mg/dL [facility] [...] Address City/State/ZIP Code Phon e Number [address] POCT Glucose (07/09/2017 8:09 PM EST) athologist Signature POC Glucose 117 65 - 199 [place]BAR[place] ZHAORYAN mg/dL [facility] [...] Organization Address City/State/[place] [address] POCT Glucose (07/09/2017 5:40 PM EST) athologist Signature POC Glucose 155 65 - 199 [place] mg/dL [facility] [...] Organization Address City/State/[place] [address] POCT Glucose (07/09/2017 4:24 PM EST) athologist Signature POC Glucose 164 65 - 199 BARBAR[place] ZHAORYAN mg/dL [facility] [...] Address City/State/ZIP Code Phon e Number [address] POCT Glucose (07/09/2017 3:19 PM EST) athologist Signature POC Glucose 166 65 - 199 [place] mg/dL [facility] [...] Organization Address City/State/[place] [address] POCT Glucose (07/09/2017 2:26 PM EST) athologist Signature POC Glucose 179 65 - 199 [facility] mg/dL [facility] [...] Organization Address City/State/[place] [address] (ABNORMAL) POCT Glucose (07/09/2017 1:29 PM EST) athologist Signature POC Glucose 210 (H) 65 - 199 [place] mg/dL [facility] [...] Organization Address City/State/[place] [address] POCT Glucose (07/09/2017 12:20 PM EST) athologist Signature POC Glucose 172 65 - 199 [place] mg/dL [facility] [...] Address City/State/ZIP Code Phon e Number [address] POCT Glucose (07/09/2017 11:24 AM EST) athologist Signature POC Glucose 156 65 - 199 [facility] mg/dL [facility] [...] Address City/State/ZIP Code Phon e Number [address] POCT Glucose (07/09/2017 11:11 AM EST) athologist Signature POC Glucose 172 65 - 199 [place] mg/dL [facility] [...] Address City/State/ZIP Code Phon e Number [address] POCT Glucose (07/09/2017 10:08 AM EST) athologist Signature POC Glucose 176 65 - 199 [place] mg/dL [facility] [...] Organization Address City/State/[place] [address] POCT Glucose (07/09/2017 8:02 AM EST) P athologist Signature POC Glucose 178 65 - [address] [facility] [address] [...] Organization Address City/State/[place] [address] (ABNORMAL) BLOOD GAS 2 ARTERIAL (07/09/2017 5:37 AM EST) Analysis Performed At Patho logist Time Signature pH Art 7.36 7.35 - [facility] 7.45 [facility] LABORATORY pCO2 Art 38 35 - [address] [facility] mmHg [facility] LABORATORY pO2 Art 79 (L) 85 - [address] [facility] mmHg [facility] LABORATORY HCO3 Art 20.9 20.0 - [facility] 26.0 [facility] mmol/L [facility] LABORATORY BE Art -4.6 (L) -3.0 - 3.[address] [facility] mmol/L [facility] LABORATORY Hgb Blood Gas 10.5 (L) 13.7 - [facility] 16.5 gm/dL [facility] LABORATORY O2HB Art 93.8 (L) 94.0 - [facility] 97.0 % [facility] LABORATORY COHB Art 0.3 % [facility] Blood 113 (H) 98 - 107 mmol/L [facility] LABORATORY Gluc Whole Bld 175 65 - 199 mg/dL [facility] LABORATORY Comment: Diabetes: >=200 mg/dL plus symp toms. Lactate WB 1.0 0.5 - 2.2 mmol/L [facility] LABORATORY FIO2 Art 40 % [facility] LABORATORY PF Ratio Art 198 [facility] LABORATORY Specimen Anatomical Collection Method Collection Time Receive d Time (Source) Location / / Volume Laterality Blood specimen 07/09/2017 5:37 AM 017 5:37 (specimen) EST AM EST Yuan Webber MD CHEMISTRY ORDERABLES Performing Organization Address City/State/ZIP [place] [address] POCT Glucose (07/09/2017 3:27 AM EST) P athologist Signature POC Glucose 192 65 - [address] [facility] [...] Address City/State/ZIP [place] [address] (ABNORMAL) Basic Metabolic Panel (non-fasting) (07/09/2017 2:30 AM EST) P athologist Signature Glucose Lvl 179 65 - [address] [facility] [...] or in patients with acute kidney failure. [email or web address] Specimen Anatomical Collection Method Collection Time Receive d Time (Source) Location / / Volume Laterality Blood specimen Venous Draw / 07/09/2017 2:30 AM 2016 2:42 (specimen) Unknown EST AM EST Resulting Agency Comment Spec In Lab Yuan Webber MD CHEMISTRY ORDERABLES Performing Organization Address City/State/ZIP [place] [address] (ABNORMAL) Potassium (07/09/2017 2:30 AM EST) P athologist Signature Potassium 5.1 (H) 3.5 - 5.0 [place] mmol/L [facility] [...] MD CHEMISTRY ORDERABLES Performing Organization Address City/[facility]/ZIP [place] [address] (ABNORMAL) Hemogram (07/09/2017 2:30 AM EST) Analysis Performed At Patho logist Time Signature WBC 12.5 (H) 4.0 - 9.5 [place] RY[place] x10(3)/[facility] LABORATORY RBC 3.38 (L) 4.58 - [place] 5.54 [facility] x10(6)/[facility] LABORATORY Hemoglobin 10.1 (L) 13.7 - [place] RYAN 16.5 gm/dL [facility] LABORATORY Hematocrit 30.3 (L) 40.5 - [place] RYAN 48.5 % [facility] LABORATORY MCV 89.6 82.9 - [place] 93.1 [facility] LABORATORY MCH 29.9 27.5 - [place] 32.1 pg [facility] LABORATORY MCHC 33.3 32.0 - [place] RYAN 35.7 gm/dL [facility] LABORATORY Platelets 127 (L) 145 - 357 [place] x10(3)/[facility] LABORATORY RDWSD 49.3 (H) 36.0 - [place] 45.0 [facility] LABORATORY RDWCV 15.2 (H) 11.4 - [place] 13.8 % [facility] LABORATORY MPV 9.9 7.6 - 12.9 [facility] LABORATORY nRBC % Auto 0.0 % [facility] LABORATORY nRBC Abs Auto 0.000 0.000 - BARBARA DAVIS 0.000 [facility] x10(3)/[facility] LABORATORY Specimen Anatomical Collection Method Collection Time Receive d Time (Source) Location / / Volume Laterality Blood specimen 07/09/2017 2:30 AM 017 2:41 (specimen) EST AM EST Resulting Agency Comment Spec In Lab Yuan Webber MD HEMATOLOGY ORDERABLES Performing Organization Address City/State/ZIP Code Phon e Number [address] POCT Glucose (07/09/2017 2:10 AM EST) athologist Signature POC Glucose 169 65 - 199 [facility] [...] Address City/State/ZIP Code Phon e Number [address] POCT Glucose (07/09/2017 1:01 AM EST) athologist Signature POC Glucose 173 65 - 199 [facility] [...] Address City/State/ZIP Code Phon e Number [address] Blood culture (07/09/2017 12:40 AM EST) [facility] eyeOS Method Time Signature Blood Culture No growth BARBARA DAVIS at 5 days. [facility] LABORATORY Specimen Anatomical Collection Method Collection Time Receive d Time (Source) Location / / Volume Laterality Blood specimen STRUCTURE OF RIGHT 07/09/2017 12:40 3:58 (specimen) UPPER LIMB / AM EST AM EST Unknown Resulting Agency Comment Spec In Lab Yuan Webber MD MICROBIOLOGY - BLOOD ORDERAB LES Performing Organization Address City/[facility]/ZIP Code Phon e Number [address] Blood culture (07/09/2017 12:30 AM EST) [facility] eyeOS Method Time Signature Blood Culture No growth BARBARA DAVIS at 5 days. [facility] LABORATORY Specimen Anatomical Collection Method Collection Time Receive d Time (Source) Location / / Volume Laterality Blood specimen STRUCTURE OF LEFT 07/09/2017 12:30 06/25 3:59 (specimen) UPPER LIMB / AM EST AM EST Unknown Resulting Agency Comment Spec In Lab Yuan Webber MD MICROBIOLOGY - BLOOD ORDERAB LES Performing Organization Address City/[facility]/[place] [address] (ABNORMAL) Urinalysis Microscopic Exam (07/09/2017 12:05 AM EST) Analysis Performed At Patho logist Time Signature RBC UA 32 (H) 0 - 3 /HPF [facility] LABORATORY WBC UA 5 (H) 0 - 3 /HPF [facility] LABORATORY Squam Epith UA <1 <=4 /HPF [facility] LABORATORY Hyaline Cast 17 (H) 0 - 2 /LPF [facility] LABORATORY Gran Cast UA 1 (H) <=0 /LPF [facility] LABORATORY Uric Ac Bianca Rare (A) None /HPF [facility] LABORATORY Specimen (Source) Anatomical Collection Method Collection Time Re ceived Time Location / / Volume Laterality Urine specimen 07/09/2017 12:05 7 obtained via AM EST 12:39 AM EST indwelling urinary catheter (specimen) Resulting Agency Comment Spec In Lab Yuan Webber MD URINE ORDERABLES Performing Organization Address City/State/ZIP Code Phon e Number [address] (ABNORMAL) Urinalysis with reflex Culture (07/09/2017 12:05 AM EST) Patholo gist Method Time Signature Glucose UA Negative Negative [facility]/dL [facility] LABORATORY Protein UA 30 (A) Negative [facility] mg/dL [facility] LABORATORY Bilirubin UA Negative Negative [facility] mg/dL [facility] LABORATORY Comment: Clinical correlation required for positi [...] Blood UA Moderate (A) Negative mg/dL [facility] LABORATORY Ketones UA Negative Negative mg/dL [facility] LABORATORY Nitrite UA Negative Negative [facility] LABORATORY Leukocytes UA Negative Negative [facility] LABORATORY Appearance UA Hazy (A) Clear [facility] LABORATORY Spec [place] UA 1.025 1.002 - 1.030 [facility] LABORATORY Color UA Yellow Yellow [facility] LABORATORY Culture Reflexed No [facility] LABORATORY Specimen (Source) Anatomical Collection Method Collection Time Re ceived Time Location / / Volume Laterality Urine specimen 07/09/2017 12:05 7 obtained via AM EST 12:39 AM EST indwelling urinary catheter (specimen) Resulting Agency Comment Spec In Lab Yuan Webber MD URINE ORDERABLES Performing Organization Address City/State/ZIP Code Phon e Number [place] [id number] [facility] [address] Drive POCT Glucose (07/08/2017 [...] Organization Address City/State/[place] [address] POCT Glucose (07/08/2017 10:04 PM EST) P athologist Signature POC Glucose 198 65 - 199 [facility] mg/dL [facility] [...] Organization Address City/State/[place] [address] Prepare Albumin 5% in [...] Address City/State/ZIP Code Phon e Number [address] POCT Glucose (07/08/2017 8:28 PM EST) P athologist Signature POC Glucose 195 65 - 199 [facility] mg/dL [facility] [...] TEST ORDERABLE S Performing Organization Address City/[facility]/[place] [address] (ABNORMAL) POCT Glucose (07/08/2017 7:13 PM EST) P athologist Signature POC Glucose 220 (H) 65 - 199 [facility] mg/dL [facility] [...] TEST ORDERABLE S Performing Organization Address City/[facility]/[place] [address] POCT Glucose (07/08/2017 5:04 PM EST) P athologist Signature POC Glucose 147 65 - 199 [facility] mg/dL [facility] [...] Organization Address City/State/[place] [address] (ABNORMAL) BLOOD GAS 2 ARTERIAL (07/08/2017 4:13 PM EST) Analysis Performed At Patho logist Time Signature pH Art 7.38 7.35 - [facility] 7.45 [facility] LABORATORY pCO2 Art 36 35 - 45 [facility] LABORATORY pO2 Art 91 85 - 104 [facility] LABORATORY HCO3 Art 20.9 20.0 - [facility] 26.0 [facility] mmol/L [facility] LABORATORY BE Art -4.2 (L) -3.0 - 3.[address] [facility] mmol/L [facility] LABORATORY Hgb Blood Gas 11.7 (L) 13.7 - [facility] 16.5 gm/dL [facility] LABORATORY O2HB Art 95.1 94.0 - [facility] 97.0 % [facility] LABORATORY COHB Art 0.6 % [facility] Blood 110 (H) 98 - 107 mmol/L [facility] LABORATORY Gluc Whole Bld 155 65 - 199 mg/dL [facility] LABORATORY Comment: Diabetes: >=200 mg/dL plus symp toms. Lactate WB 1.4 0.5 - 2.2 mmol/L [facility] LABORATORY FIO2 Art 40 % [facility] LABORATORY PF Ratio Art 228 [facility] LABORATORY Specimen Anatomical Collection Method Collection Time Receive d Time (Source) Location / / Volume Laterality Blood specimen 07/08/2017 4:13 PM 017 4:13 (specimen) EST PM EST Yuan Webber MD CHEMISTRY ORDERABLES Performing Organization Address City/State/ZIP [place] [address] POCT Glucose (07/08/2017 4:01 PM EST) athologist Signature POC Glucose 148 65 - 199 [place] mg/dL [facility] [...] Address City/State/ZIP Code Phon e Number [address] POCT Glucose (07/08/2017 3:21 PM EST) athologist Signature POC Glucose 118 65 - 199 [facility] mg/dL [facility] [...] Address City/State/ZIP Code Phon e Number [address] POCT Glucose (07/08/2017 2:01 PM EST) athologist Signature POC Glucose 129 65 - 199 [place] mg/dL [facility] [...] Address City/State/ZIP Code Phon e Number [address] POCT Glucose (07/08/2017 11:53 AM EST) athologist Signature POC Glucose 156 65 - 199 [facility] mg/dL [facility] [...] Organization Address City/State/[place] [address] POCT Glucose (07/08/2017 11:04 AM EST) athologist Signature POC Glucose 181 65 - 199 [facility] mg/dL [facility] [...] TEST ORDERABLE S Performing Organization Address City/[facility]/[place] [address] (ABNORMAL) POCT Glucose (07/08/2017 9:24 AM EST) athologist Signature POC Glucose 203 (H) 65 - 199 [facility] mg/dL [facility] [...] Organization Address City/State/[place] [address] APTT (07/08/2017 8:40 AM [...] [facility]/[place] [address] (ABNORMAL) Prothrombin Time (07/08/2017 [...] Organization Address City/State/[place] [address] (ABNORMAL) POCT Glucose (07/08/2017 [...] Organization Address City/State/[place] [address] (ABNORMAL) POCT Glucose (07/08/2017 7:07 AM EST) athologist Signature POC Glucose 234 (H) 65 - 199 [place] mg/dL [facility] LABORATORY Comment: Supplemental ranges: <140 mg/dL before meals <180 mg/dL all other times of the day Specimen Anatomical Collection Method Collection Time Receive d Time (Source) Location / / Volume Laterality Blood specimen 07/08/2017 7:07 AM 017 7:07 (specimen) EST AM EST Yuan Wbeber MD POINT OF CARE TEST ORDERABLE S Performing Organization Address City/State/[place] [address] (ABNORMAL) POCT Glucose (07/08/2017 6:04 AM EST) athologist Signature POC Glucose 225 (H) 65 - 199 [place] mg/dL [facility] [...] Organization Address City/State/[place] [address] (ABNORMAL) POCT Glucose (07/08/2017 5:31 AM EST) athologist Signature POC Glucose 216 (H) 65 - 199 [place] mg/dL [facility] [...] Organization Address City/State/[place] [address] (ABNORMAL) POCT Glucose (07/08/2017 4:52 AM EST) P athologist Signature POC Glucose 257 (H) 65 - [address] [facility] [address] [...] TEST ORDERABLE S Performing Organization Address City/[facility]/[place] [address] (ABNORMAL) BLOOD GAS 2 ARTERIAL (07/08/2017 4:04 AM EST) Analysis Performed At Patho logist Time Signature pH Art 7.30 (L) 7.35 - [facility] 7.45 [facility] LABORATORY pCO2 Art 41 35 - [address] [facility] mmHg [facility] LABORATORY pO2 Art 83 (L) 85 - [address] [facility] mmHg [facility] LABORATORY HCO3 Art 19.6 (L) 20.0 - [facility] 26.0 [facility] mmol/L [facility] LABORATORY BE Art -6.8 (L) -3.0 - 3.[address] [facility] mmol/L [facility] LABORATORY Hgb Blood Gas 12.2 (L) 13.7 - [facility] 16.5 gm/dL [facility] LABORATORY O2HB Art 93.5 (L) 94.0 - [facility] 97.0 % [facility] LABORATORY COHB Art 0.4 % [facility] Whole Blood 107 98 - 107 mmol/L [facility] LABORATORY Gluc Whole Bld 274 (H) 65 - 199 mg/dL [facility] LABORATORY Comment: Diabetes: >=200 mg/dL plus symp toms. Lactate WB 4.4 (Critical) 0.5 - 2.2 mmol/L [facility] LABORATORY Comment: Noted by musical instrument supervisor. FIO2 Art 40 % [facility] LABORATORY PF Ratio Art 208 [facility] LABORATORY Specimen Anatomical Collection Method Collection Time Receive d Time (Source) Location / / Volume Laterality Blood specimen 07/08/2017 4:04 AM 017 4:04 (specimen) EST AM EST Daphne Shahid MD CHEMISTRY ORDERABLES Performing Organization Address City/[facility]/ZIP [place] [address] Scan, Peripheral Blood (07/08/2017 [...] [facility]/ZIP [place] [address] (ABNORMAL) Differential, Automated (07/08/2017 4:00 AM EST) [facility] Method Time Signature Neutrophils % 85.4 % [facility] LABORATORY Neutr Abs (ANC) 16.07 (H) 1.70 - [facility] 6.10 [facility] x10(3)/[facility] L LABORATORY Lymphocytes % 3.5 % [facility] LABORATORY Lymphocytes Abs 0.6 (L) 0.9 - 3.[address] [facility] x10(3)/[facility] LABORATORY Monocytes % 10.4 % [facility] LABORATORY Monocyte Abs 2.0 (H) 0.3 - 0.[address] [facility] x10(3)/[facility] LABORATORY Eosinophils % 0.0 % [facility] LABORATORY Eosinophils Abs 0.0 0.0 - 0.[address] [facility] x10(3)/[facility] LABORATORY Basophils % 0.1 % [facility] LABORATORY Basophils Abs 0.0 0.0 - 0.[address] [facility] x10(3)/[facility] LABORATORY Immature Gran % 0.60 [...] Address City/State/ZIP [place] [address] (ABNORMAL) Hemogram (07/08/2017 4:00 AM EST) Analysis Performed At Patho logist Time Signature WBC 18.8 (H) 4.0 - 9.5 [facility] x10(3)/[facility] LABORATORY RBC 4.00 (L) 4.58 - BARBARA ZHAORYAN 5.54 [facility] x10(6)/[facility] LABORATORY Hemoglobin 11.9 (L) 13.7 - [facility] 16.5 gm/dL [facility] LABORATORY Hematocrit 35.9 (L) 40.5 - [facility] 48.5 % [facility] LABORATORY MCV 89.8 82.9 - [facility] 93.1 [facility] LABORATORY MCH 29.8 27.5 - [facility] 32.1 pg [facility] LABORATORY MCHC 33.1 32.0 - [facility] 35.7 gm/dL [facility] LABORATORY Platelets 232 145 - [address] [facility] x10(3)/[facility] LABORATORY RDWSD 47.6 (H) 36.0 - [place] RYAN 45.0 [facility] LABORATORY RDWCV 14.5 (H) 11.4 - [facility] RYAN 13.8 % [facility] LABORATORY MPV 9.5 7.6 - 12.9 [facility] nRBC % Auto 0.0 % [facility] LABORATORY nRBC Abs Auto 0.000 0.000 - [place] RYAN 0.000 [facility] x10(3)/[facility] LABORATORY Specimen Anatomical Collection Method Collection Time Receive d Time (Source) Location / / Volume Laterality Blood specimen 07/08/2017 4:00 AM 017 4:09 (specimen) EST AM EST Resulting Agency Comment Spec In Lab Yuan Webber MD HEMATOLOGY ORDERABLES Performing Organization Address City/State/ZIP [place] [address] (ABNORMAL) Electrolytes panel (07/08/2017 4:00 AM EST) P athologist Signature Sodium 139 135 - [address] [facility] mmol/L [facility] LABORATORY Potassium 4.7 3.5 - 5.0 [facility] mmol/L [facility] LABORATORY Comment: result rechecked-[id number] Please note: ??Patients [...] Address City/State/ZIP [place] [address] (ABNORMAL) Cardiac Enzymes (LEB/CGP) (07/08/2017 4:00 AM EST) P athologist Signature Troponin-T 1.88 (H) 0.00 - [facility] [...] additional sample may be indicated. Reference: [employer] [place] Definition of Myocardial Infarction. Journal of the [...] MD CHEMISTRY ORDERABLES Performing Organization Address City/[facility]/ZIP Code Phon e Number [address] (ABNORMAL) Glucose, fasting (07/08/2017 [...] MD CHEMISTRY ORDERABLES Performing Organization Address City/[facility]/ZIP [facility] [place] [place] [address] (ABNORMAL) Creatinine (07/08/2017 4:00 AM EST) Analysis Performed At Patho logist Time Signature Creatinine 1.55 (H) 0.80 - [facility] 1.50 mg/dL [facility] LABORATORY Estimated GFR 44 (L) >=60 [facility] LABORATORY Comment: The reported eGFR should be multiplied b y 1.2 for patients. The MDRD is not an appropriate measure o f renal function for patients with body mass extremes or in patients with acute kidney failure. [email or web address] [email or web address] Specimen Anatomical Collection Method Collection Time Receive d Time (Source) Location / / Volume Laterality Blood specimen 07/08/2017 4:00 AM 017 4:09 (specimen) EST AM EST Resulting Agency Comment Spec In Lab Yuan Webber MD CHEMISTRY ORDERABLES Performing Organization Address City/[facility]/ZIP [facility] Phon e Number [address] BUN (07/08/2017 4:00 AM EST) P athologist Signature BUN 16 10 - 20 [facility] mg/dL [facility] LABORATORY Specimen Anatomical Collection Method Collection Time Receive d Time (Source) Location / / Volume Laterality Blood specimen 07/08/2017 4:00 AM 017 4:09 (specimen) EST AM EST Resulting Agency Comment Spec In Lab Yuan Webber MD CHEMISTRY ORDERABLES Performing Organization Address City/[facility]/ZIP [facility] [place] [address] (ABNORMAL) POCT Glucose (07/08/2017 3:00 AM EST) P athologist Signature POC Glucose 273 (H) 65 - 199 [facility] mg/dL [facility] [...] Organization Address City/State/[place] [address] (ABNORMAL) POCT Glucose (07/08/2017 1:57 AM EST) athologist Signature POC Glucose 288 (H) 65 - 199 [facility] mg/dL [facility] [...] Organization Address City/State/[place] [address] (ABNORMAL) POCT Glucose (07/08/2017 1:01 AM EST) athologist Signature POC Glucose 315 (H) 65 - 199 [facility] mg/dL [facility] [...] Organization Address City/State/[place] [address] (ABNORMAL) BLOOD GAS 2 ARTERIAL (07/08/2017 12:09 AM EST) athologist Signature pH Art 7.26 7.35 - [facility] (Critical) 7.45 [facility] LABORATORY Comment: Noted by musical instrument supervisor. pCO2 Art 41 35 - 45 mmHg [facility] LABORATORY pO2 Art 96 85 - 104 mmHg [facility] LABORATORY HCO3 Art 17.7 (L) 20.0 - 26.0 mmol/L [facility] LABORATORY BE Art -9.4 (L) -3.0 - 3.0 mmol/L [facility] LABORATORY Hgb Blood Gas 12.4 (L) [...] Blood 109 (H) 98 - 107 mmol/L [facility] LABORATORY Gluc Whole Bld 315 (H) 65 - 199 mg/dL [facility] LABORATORY Comment: Diabetes: >=200 mg/dL plus symp toms. Lactate WB 7.6 (Critical) 0.5 - 2.2 mmol/L [facility] LABORATORY Comment: Noted by musical instrument supervisor. FIO2 Art 40 % [facility] LABORATORY PF Ratio Art 240 [facility] LABORATORY Specimen Anatomical Collection Method Collection Time Receive d Time (Source) Location / / Volume Laterality Blood specimen Arterial Draw / 07/08/2017 12:09 2016 5:31 (specimen) Unknown AM EST AM EST Resulting Agency Comment Spec In Lab Samy Maldonado MD CHEMISTRY ORDERABLES Performing Organization Address City/State/[place] [address] (ABNORMAL) POCT Glucose (07/07/2017 [...] Address City/State/Z[place] [address] (ABNORMAL) BLOOD GAS 2 ARTERIAL (07/07/2017 10:04 PM EST) athologist Signature pH Art 7.22 7.35 - [facility] (Critical) 7.45 [facility]ORY Comment: Noted by musical instrument supervisor. pCO2 Art 42 35 - 45 mmHg [facility]ATORY pO2 Art 94 85 - 104 mmHg [facility] HCO3 Art 16.9 (L) 20.0 - 26.0 mmol/L [facility] BE Art -10.7 (L) -3.0 - 3.0 mmol/L [facility] Hgb Blood Gas 13.0 (L) [...] Blood 3.3 (L) 3.5 - 5.0 mmol/L [facility] [...] Whole Blood 107 98 - 107 mmol/L [facility] Gluc Whole Bld 304 (H) 65 - 199 mg/dL [facility] Comment: Diabetes: >=200 mg/dL plus symp toms. Lactate WB 8.2 (Critical) 0.5 - 2.2 mmol/L [facility]OR[facility] Comment: Noted by musical instrument supervisor. FIO2 Art 40 % [facility] PF Ratio Art 235 [facility] Specimen Anatomical Collection Method Collection Time Receive d Time (Source) Location / / Volume Laterality Blood specimen 07/07/2017 10:04 7 (specimen) PM EST 10:04 PM EST Daphne Shahid MD CHEMISTRY ORDERABLES Performing Organization Address City/State/ZIP Code Phon e Number [address] (ABNORMAL) Hemoglobin (07/07/2017 10:00 PM EST) P athologist Signature Hemoglobin 12.8 (L) 13.7 - [facility] 16.5 gm/dL [facility] LABOR[facility]ORY Specimen Anatomical Collection Method Collection Time Receive d Time (Source) Location / / Volume Laterality Blood specimen 07/07/2017 10:00 7 (specimen) PM EST 10:13 PM EST Resulting Agency Comment Spec In Lab Yuan Webber MD HEMATOLOGY ORDERABLES Performing Organization Address City/State/ZIP Code Phon e Number [address] (ABNORMAL) Potassium (07/07/2017 10:00 [...] MD CHEMISTRY ORDERABLES Performing Organization Address City/[facility]/[place] [address] (ABNORMAL) POCT Glucose (07/07/2017 [...] TEST ORDERABLE S Performing Organization Address City/[facility]/[place] [address] Prepare Albumin 5% in 250 mL (07/07/2017 8:03 PM EST) athologist Signature Dispensed? Yes [facility] Specimen Anatomical Collection Method Collection Time Receive d Time (Source) Location / / Volume Laterality Blood specimen No Charge / 07/07/2017 8:03 PM 017 8:04 (specimen) Unknown EST PM EST Resulting Agency Comment Spec In Lab Michael BROWN BLOOD BANK ORDERABLES Performing Organization Address City/[facility]/[place] [address] EKG 12 Lead (07/07/2017 7:17 PM EST) Component Value Ref Range Test Analysis Performed Pathologis t Method Time At Signature Ventricular rate 75 BPM MUSE SYSTEM Atrial Rate 75 BPM MUSE SYSTEM P-R Interval 168 ms MUSE SYSTEM QRS Duration 104 ms MUSE SYSTEM Q-T Interval 462 ms MUSE SYSTEM QTC Calculated 515 ms MUSE SYSTEM (Bezet) Calculated P [place] 52 degrees MUSE SYSTEM Calculated R [place] -40 degrees MUSE SYSTEM Calculated T [place] 39 degrees MUSE SYSTEM INTERPRETATION Normal sinus [...] Art 7.21 7.35 - [facility] (Critical) 7.45 [facility]ORY Comment: Noted by musical instrument supervisor. pCO2 Art 50 (H) 35 - 45 mmHg [facility]ORY pO2 Art 238 (H) 85 - 104 mmHg [facility] HCO3 Art 19.8 (L) 20.0 - 26.0 mmol/L [facility] BE Art -8.1 (L) -3.0 - 3.0 mmol/L [facility] Hgb Blood Gas 12.8 (L) [...] Blood 3.0 (Critical) 3.5 - 5.0 mmol/L [facility] Comment: Noted by musical instrument supervisor. Please note: Patients with WBC >100,000 may have falsely elevated Potassium levels. Contact the Clinical Chemistry L aboratory if there are any questions. ICa Whole Blood 1.07 (L) 1.15 - 1.33 mmol/L [facility] Comment: Note: ??Total bilirubin higher than 20 m g/dL may lead to falsely low ionized calcium. CL Whole Blood 107 98 - 107 mmol/L [facility] Gluc Whole Bld 270 (H) 65 - 199 mg/dL [facility] Comment: Diabetes: >=200 mg/dL plus symp toms. Lactate WB 4.9 (Critical) 0.5 - 2.2 mmol/L [facility] Comment: Noted by musical instrument supervisor. FIO2 Art 100 % [facility] PF Ratio Art 238 [facility] Specimen Anatomical Collection Method Collection Time Receive d Time (Source) Location / / Volume Laterality Blood specimen 07/07/2017 6:57 PM 017 6:57 (specimen) EST PM EST Daphne Shahid MD CHEMISTRY ORDERABLES Performing Organization Address City/State/ZIP [place] [address] (ABNORMAL) BLOOD GAS 2 ARTERIAL (07/07/2017 5:31 PM EST) P athologist Signature pH Art 7.29 7.35 - [facility] (Critical) 7.45 [facility] Comment: Noted by musical instrument supervisor. pCO2 Art 48 (H) 35 - 45 mmHg [facility] pO2 Art 137 (H) 85 - 104 mmHg [facility] HCO3 Art 22.4 20.0 - 26.0 mmol/L [facility] BE Art -4.3 (L) -3.0 - 3.0 mmol/L [facility] Hgb Blood Gas 10.0 (L) [...] Whole Blood 105 98 - 107 mmol/L [facility] Gluc Whole Bld 293 [...] Address City/State/ZIP [place] [address] Fibrinogen (07/07/2017 5:30 PM EST) P athologist Signature Fibrinogen 224 180 - [address] [facility] mg/dL [facility] LABORATORY Comment: Called by: JEET, Read back [...] Perez MD HEMATOLOGY ORDERABLES Performing Organization Address [facility] Phon e Number [address] APTT (07/07/2017 5:30 PM [...] Perez MD HEMATOLOGY ORDERABLES Performing Organization Address [facility] [place] [address] (ABNORMAL) Prothrombin Time (07/07/2017 [...] Perez MD HEMATOLOGY ORDERABLES Performing Organization Address [facility]/ZIP [place] [address] (ABNORMAL) Hemogram (07/07/2017 5:30 PM EST) athologist Signature WBC 19.6 (H) 4.0 - 9.[address] [facility] x10(3)/[facility] LABORATORY RBC 3.08 (L) 4.58 - [facility] 5.54 [facility] x10(6)/[facility] LABORATORY Hemoglobin 9.2 (L) 13.7 - [facility] 16.5 gm/dL [place] Hematocrit 28.0 (L) 40.5 - [facility] 48.5 % [facility] LABORATORY Comment: This result has been called to MONICA WEINSTEIN LUISA by DONALD GROSSMAN on 07 07 2017 at 1759, and has been read back. MCV 90.9 82.9 - 93.1 [facility] LABORATORY MCH 29.9 27.5 - 32.1 pg [facility] LABORATORY MCHC 32.9 32.0 - 35.7 gm/dL [facility] LABORATORY Platelets 155 145 - 357 x10(3)/[facility] LABORATORY RDWSD 46.5 (H) 36.0 - 45.0 [facility] LABORATORY RDWCV 14.1 (H) 11.4 - 13.8 % [facility] LABORATORY MPV 9.5 7.6 - 12.9 [facility] LABORATORY nRBC % Auto 0.0 % [facility] LABORATORY nRBC Abs Auto 0.000 0.000 - 0.000 x10(3)/[facility] LABORATORY Specimen Anatomical Collection Method Collection Time Receive d Time (Source) Location / / Volume Laterality Blood specimen 07/07/2017 5:30 PM 017 5:34 (specimen) EST PM EST Resulting Agency Comment Spec In Lab Yifan Perez MD HEMATOLOGY ORDERABLES Performing Organization Address City/State/ZIP [place] [address] Prepare Platelets, Apheresis (07/07/2017 5:00 PM EST) P athologist Signature Dispensed? Yes [facility] LABORATORY Specimen Anatomical Collection Method Collection Time Receive d Time (Source) Location / / Volume Laterality Blood specimen 07/07/2017 5:00 PM 017 4:58 (specimen) EST PM EST Daphne Shahid MD BLOOD BANK ORDERABLES Performing Organization Address City/State/ZIP [place] [address] Platelet count (07/07/2017 4:55 PM EST) athologist Signature Platelets 177 145 - [address] [facility] x10(3)/[facility] LABORATORY Plat Immature 1.5 0.0 - 7.[address] [facility] % % [facility] LABORATORY Comment: Limitation of the Immature Platelet Frac tion (IPF)-May be less reliable when the platelet count is less than 62s746/u L due to statistical imprecision. The IPF [...] in a decreased state of production. References: [employer] The Clinical Value of the Immature Platelet Fraction (IPF) in Cell Recovery Document Number [id number] 12/2010 [employer] The Role of the Imm ature [...] [facility]/ZIP [place] [address] (ABNORMAL) Hemoglobin and Hematocrit, blood (07/07/2017 4:55 PM EST) P athologist Signature Hemoglobin 9.1 (L) 13.7 - 16.5 [facility] LAB[facility]ATORY Comment: This result has been called [...] [facility]/[place] [address] (ABNORMAL) BLOOD GAS 2 ARTERIAL (07/07/2017 4:38 PM EST) Analysis Performed At Patho logist Time Signature pH Art 7.37 7.35 - [facility] 7.45 [facility] LABORATORY pCO2 Art 44 35 - [address] [facility] mmHg [facility] LABORATORY pO2 Art 322 (H) 85 - [address] [facility] mmHg [facility] LABORATORY HCO3 Art 24.9 20.0 - [facility] 26.0 [facility] mmol/L [facility] LABORATORY BE Art -0.4 -3.0 - 3.[address] [facility] mmol/L [facility] LABORATORY Hgb Blood Gas 10.1 (L) 13.7 - [facility] 16.5 gm/dL [facility] LABORATORY O2HB Art 98.7 (H) 94.0 - [facility] 97.0 % [facility] LABORATORY COHB Art 0.1 % [facility] LABORATORY Comment: Nonsmokers: 0.5-1.5% COHB Smokers: Variable, but usually less than 10% Toxic: 20-30% COHB Lethal: Greater than 60% COHB METHB Art 0.3 <=1.5 % [facility] LABORATORY Na Whole Blood 130 (L) 135 - 145 mmol/L [facility] LABORATORY K Whole Blood 5.7 (H) 3.5 - 5.0 mmol/L [facility] LABORATORY Comment: Please note: Patients with WBC >100,000 may have falsely elevated Potassium levels. Contact the Clinical Chemistry L aboratory if there are any questions. ICa Whole Blood 0.89 (Critical) 1.15 - 1.33 mmol/L [facility] LAB[facility]ATORY Comment: Noted by musical instrument supervisor. Note: ??Total bilirubin higher than 20 m g/dL may lead to falsely low ionized calcium. CL Whole Blood 101 98 - 107 mmol/L [facility] LABORATORY Gluc Whole Bld 295 (H) 65 - 199 mg/dL [facility] LAB[facility] Comment: Diabetes: >=200 mg/dL plus symp toms. Lactate WB 1.7 0.5 - 2.2 mmol/L [facility] LABOR[facility]ORY Specimen Anatomical Collection Method Collection Time Receive d Time (Source) Location / / Volume Laterality Blood specimen 07/07/2017 4:38 PM 017 4:38 (specimen) EST PM EST Daphne Shahid MD CHEMISTRY ORDERABLES Performing Organization Address City/State/ZIP [place] [address] (ABNORMAL) BLOOD GAS 2 VENOUS (07/07/2017 4:06 PM EST) Analysis Performed At Patho logist Time Signature pH Cody 7.31 (L) 7.32 - [facility] 7.42 [facility] LABORATORY pCO2 Cody 47 41 - 51 [facility] LABORATORY pO2 Cody 53 (H) 25 - 40 [facility] LABORATORY HCO3 Cody 22.7 mmol/L [facility] LABORAT[facility] BE Cody -3.7 mmol/L [facility] LABORATORY Hgb Blood Gas 10.2 (L) 13.7 - [facility] 16.5 gm/dL [facility] LABORATORY O2HB Cody 81.0 % [facility] Blood 5.3 (H) 3.5 - 5.0 mmol/L [facility] LAB[facility]ATORY Comment: Please note: Patients with WBC >100,000 may have falsely elevated Potassium levels. Contact the Clinical Chemistry L aboratory if there are any questions. ICa Whole Blood 0.90 (Critical) 1.15 - 1.33 mmol/L [facility] LAB[facility]ATORY Comment: Noted by musical instrument supervisor. Note: ??Total bilirubin higher than 20 m g/dL may lead to falsely low ionized calcium. CL Whole Blood 100 98 - 107 mmol/L [facility] LABORATORY Gluc Whole Bld 231 (H) 65 - 199 mg/dL [facility] LAB[facility] Comment: Diabetes: >=200 mg/dL plus symp toms Lactate WB 1.1 0.5 - 2.2 mmol/L [facility] LABORATORY BGas Source Venous [facility] LABORATORY Specimen Anatomical Collection Method Collection Time Receive d Time (Source) Location / / Volume Laterality Blood specimen 07/07/2017 4:06 PM 017 4:06 (specimen) EST PM EST Daphne Shahid MD CHEMISTRY ORDERABLES Performing Organization Address City/State/ZIP [place] [address] (ABNORMAL) BLOOD GAS 2 ARTERIAL (07/07/2017 4:05 PM EST) Analysis Performed At Patho logist Time Signature pH Art 7.36 7.35 - [facility] 7.45 [facility] LABORATORY pCO2 Art 40 35 - 45 [facility] LABORATORY pO2 Art 282 (H) 85 - 104 [facility] LABORATORY HCO3 Art 22.1 20.0 - [facility] 26.0 [facility] mmol/L [facility] LABORATORY BE Art -3.4 (L) -3.0 - 3.[address] [facility] mmol/L [facility] LABORATORY Hgb Blood Gas 10.2 (L) 13.7 - [facility] 16.5 gm/dL [facility] LABORATORY O2HB Art 98.4 (H) 94.0 - [facility] 97.0 % [facility] LABORATORY COHB Art 0.3 % [facility] LABORATORY Comment: Nonsmokers: 0.5-1.5% COHB Smokers: Variable, but usually less than 10% Toxic: 20-30% COHB Lethal: Greater than 60% COHB METHB Art 0.3 <=1.5 % [facility] LABORATORY Na Whole Blood 131 (L) 135 - 145 mmol/L [facility] LABORATORY K Whole Blood 5.4 (H) 3.5 - 5.0 mmol/L [facility] LABORATORY Comment: Please note: Patients with WBC >100,000 may have falsely elevated Potassium levels. Contact the Clinical Chemistry L aboratory if there are any questions. ICa Whole Blood 0.86 (Critical) 1.15 - 1.33 mmol/L [facility] LABORATORY Comment: Noted by musical instrument supervisor. Note: ??Total bilirubin higher than 20 m g/dL may lead to falsely low ionized calcium. CL Whole Blood 101 98 - 107 mmol/L [facility] LABORATORY Gluc Whole Bld 260 (H) 65 - 199 mg/dL [facility] LAB[facility] Comment: Diabetes: >=200 mg/dL plus symp toms. Lactate WB 1.4 0.5 - 2.2 mmol/L [facility] LABOR[facility]ORY Specimen Anatomical Collection Method Collection Time Receive d Time (Source) Location / / Volume Laterality Blood specimen 07/07/2017 4:05 PM 017 4:05 (specimen) EST PM EST Daphne Shahid MD CHEMISTRY ORDERABLES Performing Organization Address City/State/ZIP [place] [address] (ABNORMAL) BLOOD GAS 2 [...] 23.2 20.0 - [facility] 26.0 [facility] mmol/L [facility] LABORATORY BE Art -1.2 -3.0 - 3.[address] [facility] mmol/L [facility] LABORATORY Hgb Blood Gas 13.9 13.7 - [facility] 16.5 gm/dL [place] O2HB Art 97.8 (H) 94.0 - [facility] 97.0 % [facility] LABORATORY COHB Art 1.1 % [facility] WB 1.5 0.5 - 2.2 mmol/L [facility] LABORATORY Specimen Anatomical Collection Method Collection Time Receive d Time (Source) Location / / Volume Laterality Blood specimen 07/07/2017 2:29 PM 017 2:29 (specimen) EST PM EST Daphne Shahid MD CHEMISTRY ORDERABLES Performing Organization Address City/State/[place] [address] Prepare Coag Factors (Non-Hemophilia) (07/07/2017 1:25 PM EST) P athologist Signature Dispensed? Yes [facility] LABORATORY Specimen Anatomical Collection Method Collection Time Receive d Time (Source) Location / / Volume Laterality Blood specimen 07/07/2017 1:25 PM 017 1:21 (specimen) EST PM EST Daphne Shahid MD BLOOD BANK ORDERABLES Performing Organization Address City/State/ZIP Code Phon e Number [address] Prepare RBC (07/07/2017 1:10 PM EST) athologist Signature Dispensed? Yes [facility] LABORATORY Specimen Anatomical Collection Method Collection Time Receive d Time (Source) Location / / Volume Laterality Blood specimen 07/07/2017 1:10 PM 017 1:05 (specimen) EST PM EST Daphne Shahid MD BLOOD BANK ORDERABLES Performing Organization Address City/State/[place] [address] POCT Glucose (07/07/2017 11:56 AM EST) athologist Signature POC Glucose 188 65 - 199 [facility] mg/dL [facility] Organization Address City/State/[place] [address] POCT Glucose (07/07/2017 11:05 AM EST) athologist Signature POC Glucose 168 65 - 199 [facility] [...] Organization Address City/State/[place] [address] POCT Glucose (07/07/2017 10:02 AM EST) P athologist Signature POC Glucose 191 65 - 199 [facility] mg/dL [facility] [...] Organization Address City/State/[place] [address] POCT Glucose (07/07/2017 7:53 AM EST) athologist Signature POC Glucose 178 65 - 199 [facility] mg/dL [facility] [...] Address City/State/ZIP Code Phon e Number [address] POCT Glucose (07/07/2017 7:03 AM EST) athologist Signature POC Glucose 188 65 - 199 [facility] mg/dL [facility] [...] Organization Address City/State/[place] [address] (ABNORMAL) POCT Glucose (07/07/2017 6:17 AM EST) athologist Signature POC Glucose 207 (H) 65 - 199 [facility] [...] TEST ORDERABLE S Performing Organization Address City/[facility]/ZIP Code Phon e Number [address] Differential, Automated (07/07/2017 5:15 AM EST) athologist Signature Neutrophils % 69.7 % [facility] LABORATORY Neutr Abs (ANC) 5.32 1.70 - [facility] 6.10 [facility] x10(3)/[facility] LABORATORY Lymphocytes % 16.3 % [facility] LABORATORY Lymphocytes Abs 1.2 0.9 - 3.[address] [facility] x10(3)/[facility] LABORATORY Monocytes % 10.5 % [facility] LABORATORY Monocyte Abs 0.8 0.3 - 0.[address] [facility] x10(3)/[facility] LABORATORY Eosinophils % 2.5 % [facility] LABORATORY Eosinophils Abs 0.2 0.0 - 0.[address] [facility] x10(3)/[facility] LABORATORY Basophils % 0.7 % [facility] LABORATORY Basophils Abs 0.0 0.0 - 0.[address] [facility] x10(3)/[facility] LABORATORY Immature Gran % 0.30 % [facility] [...] Melisa Gran Abs 0.02 0.00 - 0.04 x10(3)/[facility] LABORATORY Specimen Anatomical Collection Method Collection Time Receive d Time (Source) Location / / Volume Laterality Blood specimen 07/07/2017 5:15 AM 017 5:34 (specimen) EST AM EST Resulting Agency Comment Spec In Lab Daphne Shahid MD HEMATOLOGY ORDERABLES Performing Organization Address City/State/[place] [address] (ABNORMAL) Hemogram (07/07/2017 5:15 AM EST) Analysis Performed At Patho logist Time Signature WBC 7.6 4.0 - 9.[address] [facility] x10(3)/[facility] LABORATORY RBC 4.82 4.58 - [facility] 5.54 [facility] x10(6)/[facility] Hemoglobin 14.4 13.7 - [facility] 16.5 gm/dL [facility] LABORATORY Hematocrit 42.1 40.5 - [facility] 48.5 % [facility] LABORATORY MCV 87.3 82.9 - [facility] 93.1 [facility] LABORATORY MCH 29.9 27.5 - [facility] 32.1 pg [facility] LABORATORY MCHC 34.2 32.0 - [facility] 35.7 gm/dL [facility] LABORATORY Platelets 188 145 - [address] [facility] x10(3)/[facility] LABORATORY RDWSD 45.1 (H) 36.0 - [facility] 45.0 [facility] LABORATORY RDWCV 14.3 (H) 11.4 - [facility] 13.8 % [facility] LABORATORY MPV 9.4 7.6 - 12.9 [facility] LABORATORY nRBC % Auto 0.0 % [facility] LABORATORY nRBC Abs Auto 0.000 0.000 - [facility] 0.000 [facility] x10(3)/[facility] LABORATORY Specimen Anatomical Collection Method Collection Time Receive d Time (Source) Location / / Volume Laterality Blood specimen 07/07/2017 5:15 AM 017 5:34 (specimen) EST AM EST Resulting Agency Comment Spec In Lab Daphne Shahid MD HEMATOLOGY ORDERABLES Performing Organization Address City/[facility]/[place] [address] (ABNORMAL) APTT (07/07/2017 5:15 [...] [facility]/[place] [address] Magnesium (07/07/2017 5:15 AM [...] MD CHEMISTRY ORDERABLES Performing Organization Address City/[facility]/[place] [address] (ABNORMAL) Basic Metabolic Panel [...] or in patients with acute kidney failure. [email or web address] Specimen Anatomical Collection Method Collection Time Receive d Time (Source) Location / / Volume Laterality Blood specimen 07/07/2017 5:15 AM 017 5:34 (specimen) EST AM EST Resulting Agency Comment Spec In Lab Daphne Shahid MD CHEMISTRY ORDERABLES Performing Organization Address City/State/ZIP [place] [address] (ABNORMAL) Cardiac Enzymes (LEB/CGP) (07/07/2017 5:15 AM EST) athologist Signature Troponin-T 2.07 (H) 0.00 - [facility] ng/mL [facility] [...] additional sample may be indicated. Reference: [place] Definition of Myocardial Infarction. Journal of the [...] Address City/State/[place]IP [place] [address] POCT Glucose (07/07/2017 5:01 AM EST) P athologist Signature POC Glucose 182 65 - [address] [facility] [...] Address City/State/ZIP Code Phon e Number [address] POCT Glucose (07/07/2017 4:08 AM EST) P athologist Signature POC Glucose 199 65 - 199 [facility] mg/dL [facility] [...] TEST ORDERABLE S Performing Organization Address City/[facility]/ZIP Code Phon e Number [address] POCT Glucose (07/07/2017 3:03 AM EST) athologist Signature POC Glucose 188 65 - 199 [place] mg/dL [facility] [...] Organization Address City/State/[place] [address] (ABNORMAL) POCT Glucose (07/07/2017 2:08 AM EST) athologist Signature POC Glucose 200 (H) 65 - 199 [facility] mg/dL [facility] [...] Organization Address City/State/[place] [address] (ABNORMAL) POCT Glucose (07/07/2017 1:31 AM EST) P athologist Signature POC Glucose 209 (H) 65 - 199 [facility] mg/dL [facility] [...] Organization Address City/State/[place] [address] XR Chest PA or [...] [facility] [...] TEST ORDERABLE S Performing Organization Address City/[facility]/ZIP Code Phon e Number [address] (ABNORMAL) APTT (07/07/2017 12:00 AM EST) athologist [facility] PTT 103 (H) 25 - 35 sec [...] Organization Address City/State/[place] [address] POCT Glucose (07/06/2017 9:55 PM EST) athologist Signature POC Glucose 109 65 - 199 [facility] mg/dL [facility] [...] Address City/State/ZIP Code Phon e Number [address] POCT Glucose (07/06/2017 9:04 PM EST) athologist Signature POC Glucose 120 65 - 199 [place] mg/dL [facility] [...] Organization Address City/State/[place] [address] POCT Glucose (07/06/2017 7:45 PM EST) athologist Signature POC Glucose 158 65 - 199 [facility] [...] TEST ORDERABLE S Performing Organization Address City/[facility]/[place] [address] Potassium (07/06/2017 7:40 PM EST) athologist Signature Potassium 3.9 3.5 - 5.0 [facility] mmol/L [facility] [...] Address City/State/ZIP [place] [address] (ABNORMAL) Cardiac Enzymes (LEB/CGP) (07/06/2017 7:40 PM EST) athologist Signature Troponin-T 2.27 (H) 0.00 - [place] 0.00 ng/mL [facility] [...] additional sample may be indicated. Reference: [place] Definition of Myocardial Infarction. Journal of the [...] Organization Address City/State/[place] [address] (ABNORMAL) POCT Glucose (07/06/2017 [...] Address City/State/ZIP Code Phon e Number [address] (ABNORMAL) APTT (07/06/2017 6:15 PM EST) athologist [facility] PTT 94 (H) 25 - 35 sec [...] Organization Address City/State/[place] [address] (ABNORMAL) POCT Glucose (07/06/2017 [...] Organization Address City/State/[place] [address] (ABNORMAL) POCT Glucose (07/06/2017 5:01 PM EST) P athologist Signature POC Glucose 235 (H) 65 - 199 [place] mg/dL [facility] [...] TEST ORDERABLE S Performing Organization Address City/[facility]/[place] [address] (ABNORMAL) POCT Glucose (07/06/2017 4:06 PM EST) athologist Signature POC Glucose 202 (H) 65 - 199 [place] mg/dL [facility] [...] Organization Address City/State/[place] [address] POCT Glucose (07/06/2017 2:59 PM EST) P athologist Signature POC Glucose 178 65 - 199 [place] mg/dL [facility] [...] TEST ORDERABLE S Performing Organization Address City/[facility]/[place] [address] (ABNORMAL) Cardiac Enzymes (LEB/CGP) (07/06/2017 2:10 PM EST) P athologist Signature Troponin-T 2.34 (H) 0.00 - [facility] 0.[facility] ng/mL [facility] [...] additional sample may be indicated. Reference: [place] Definition of Myocardial Infarction. Journal of the [...] MD CHEMISTRY ORDERABLES Performing Organization Address City/[facility]/[place] [address] POCT Glucose (07/06/2017 2:08 PM EST) P athologist Signature POC Glucose 192 65 - 199 [place] mg/dL [facility] [...] Address City/State/ZIP Code Phon e Number [address] POCT Glucose (07/06/2017 1:04 PM EST) athologist Signature POC Glucose 162 65 - 199 [facility] [...] Address City/State/ZIP Code Phon e Number [address] POCT Glucose (07/06/2017 12:05 PM EST) athologist Signature POC Glucose 196 65 - 199 [facility]dL [facility] [...] Address City/State/ZIP Code Phon e Number [address] EKG 12 Lead (07/06/2017 12:00 PM EST) Component Value Ref Range Test Analysis Performed Pathologis t Method Time At Signature Ventricular rate 91 BPM MUSE SYSTEM Atrial Rate 91 BPM MUSE SYSTEM P-R Interval 140 ms MUSE SYSTEM QRS Duration 94 ms MUSE SYSTEM Q-T Interval 394 ms MUSE SYSTEM QTC Calculated 484 ms MUSE SYSTEM (Bezet) Calculated P [place] 36 degrees MUSE SYSTEM Calculated R [place] -19 degrees MUSE SYSTEM Calculated T [place] 104 degrees MUSE SYSTEM INTERPRETATION Normal sinus rhythm MUSE SYSTEM 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) ST & T wave abnormality, consider lateral ischemia Abnormal ECG When compared with ECG of 05-JUL-2017 20:39, No significant change was found Confirmed by MD Luci, Taurus Braun ([id number]) on 07/06/2017 5:07:33 PM Specimen Anatomical Collection Method Collection Time Receive d Time (Source) Location / / Volume Laterality 07/06/2017 12:00 07/06/2017 5:07 PM EST PM EST Daphne Shahid MD ECG ORDERABLES Performing Organization Address City/[facility]/ZIP Code Phon e Number MUSE SYSTEM ABORH Recheck Status (07/06/2017 12:00 PM EST) [facility] Method Time Signature ABORH Type Completed [facility] LABORATORY Specimen Anatomical Collection Method Collection Time Receive d Time (Source) Location / / Volume Laterality Blood specimen 07/06/2017 12:00 7 (specimen) PM EST 12:24 PM EST Resulting Agency Comment Spec In Lab Daphne Shahid MD BLOOD BANK ORDERABLES Performing Organization Address City/[facility]/[place] [address] Antibody screen (07/06/2017 12:00 PM EST) [facility] eyeOS Method Time Signature Ab Screen Negative [facility] LABORATORY Expires at 07/09/[address] [facility] [id number] on: [facility] LABORATORY Specimen Anatomical Collection Method Collection Time Receive d Time (Source) Location / / Volume Laterality Blood specimen 07/06/2017 12:00 7 (specimen) PM EST 12:24 PM EST Resulting Agency Comment Spec In Lab Daphne Shahid MD BLOOD BANK ORDERABLES Performing Organization Address City/[facility]/ZIP Code Phon e Number [address] ABO/Rh Typing (07/06/2017 12:00 [...] Organization Address City/State/[place] [address] Prothrombin Time (07/06/2017 11:24 AM EST) P athologist Signature PT 13.3 11.8 - 14.0 [facility] LABORATORY INR 1.0 0.9 - 1.1 [place] [facility]/ZIP Code Phon e Number [place] [id number]OS[address] (ABNORMAL) APTT (07/06/2017 11:24 [...] Address City/State/ZIP Code Phon e Number [address] POCT Glucose (07/06/2017 11:02 AM EST) athologist Signature POC Glucose 187 65 - 199 [place] mg/dL [facility] [...] Organization Address City/State/[place] [address] POCT Glucose (07/06/2017 10:18 AM EST) athologist Signature POC Glucose 193 65 - 199 [place] mg/dL [facility] [...] Organization Address City/State/[place] [address] POCT Glucose (07/06/2017 9:25 AM EST) athologist Signature POC Glucose 182 65 - 199 [place] mg/dL [facility] [...] TEST ORDERABLE S Performing Organization Address City/[facility]/ZIP [place] [address] (ABNORMAL) Cardiac Enzymes (LEB/CGP) (07/06/2017 8:10 AM EST) athologist Signature Troponin-T 2.26 (H) 0.00 - [place] 0.00 ng/mL [facility] [...] additional sample may be indicated. Reference: [place] Definition of Myocardial Infarction. Journal of the [...] Address City/State/ZIP Code Phon e Number [place] Magnesium (07/06/2017 8:10 AM EST) athologist Signature Magnesium 0.84 0.69 - 1.[address] [facility] [...] Address City/State/ZIP Code Phon e Number [address] (ABNORMAL) Basic Metabolic Panel (non-fasting) (07/06/2017 8:10 AM EST) athologist Signature Glucose Lvl 199 65 - [address] [facility] [...] or in patients with acute kidney failure. [email or web address] Specimen Anatomical Collection Method Collection Time Receive d Time (Source) Location / / Volume Laterality Blood specimen 07/06/2017 8:10 AM 017 8:21 (specimen) EST AM EST Resulting Agency Comment Spec In Lab Daphne Shahid MD CHEMISTRY ORDERABLES Performing Organization Address City/[facility]/ZIP Code Phon e Number [address] POCT Glucose (07/06/2017 7:34 AM EST) athologist Signature POC Glucose 198 65 - 199 [facility] [...] TEST ORDERABLE S Performing Organization Address City/[facility]/ZIP Code Phon e Number [address] POCT Glucose (07/06/2017 7:03 AM EST) athologist Signature POC Glucose 181 65 - 199 [facility] [...] TEST ORDERABLE S Performing Organization Address City/[facility]/ZIP Code Phon e Number [address] XR Chest PA or [...] contours without appre ciable change. Procedure Note Jessú Menendez MD - 07/06/2017 EXAMINATION: XR CHEST [...] Glucose 172 65 - [address] [facility] [...] Address City/State/ZIP Code Phon e Number [address] POCT Glucose (07/06/2017 5:08 AM EST) athologist Signature POC Glucose 154 65 - 199 [place] mg/dL [facility] [...] Address City/State/ZIP Code Phon e Number [address] POCT Glucose (07/06/2017 4:05 AM EST) athologist Signature POC Glucose 142 65 - 199 [place] mg/dL [facility] [...] Organization Address City/State/[place] [address] POCT Glucose (07/06/2017 3:00 AM EST) athologist Signature POC Glucose 116 65 - 199 [facility] mg/dL [facility] [...] TEST ORDERABLE S Performing Organization Address City/[facility]/ZIP [place] [address] [facility] [address] Potassium (07/06/2017 2:20 AM EST) athologist Signature Potassium 3.9 3.5 - 5.0 [facility] mmol/L [facility] [...] MD CHEMISTRY ORDERABLES Performing Organization Address City/[facility]/ZIP Code Phon e Number [address] Differential, Automated (07/06/2017 2:20 AM EST) athologist Signature Neutrophils % 72.9 % [facility] LABORATORY Neutr Abs (ANC) 5.53 1.70 - [facility] 6.10 [facility] x10(3)/[facility] LABORATORY Lymphocytes % 16.4 % [facility] LABORATORY Lymphocytes Abs 1.2 0.9 - 3.[address] [facility] x10(3)/[facility] LABORATORY Monocytes % 9.4 % [facility] LABORATORY Monocyte Abs 0.7 0.3 - 0.[address] [facility] x10(3)/[facility] LABORATORY Eosinophils % 0.5 % [facility] LABORATORY Eosinophils Abs 0.0 0.0 - 0.[address] [facility] x10(3)/[facility] LABORATORY Basophils % 0.4 % [facility] LABORATORY Basophils Abs 0.0 0.0 - 0.[address] [facility] x10(3)/[facility] LABORATORY Immature Gran % 0.40 % [place] [...] 0.04 x10(3)/[facility] LABORATORY Specimen Anatomical Collection Method Collection Time Receive d Time (Source) Location / / Volume Laterality Blood specimen 07/06/2017 2:20 AM 017 2:33 (specimen) EST AM EST Resulting Agency Comment Spec In Lab Daphne Shahid MD HEMATOLOGY ORDERABLES Performing Organization Address City/State/ZIP [place] [address] (ABNORMAL) Hemogram (07/06/2017 2:20 AM EST) Analysis Performed At Patho logist Time Signature WBC 7.6 4.0 - 9.[address] [facility] x10(3)/[facility] LABORATORY RBC 4.52 (L) 4.58 - [facility] 5.54 [facility] x10(6)/[facility] LABORATORY Hemoglobin 13.4 (L) 13.7 - [facility] 16.5 gm/dL [facility] LABORATORY Hematocrit 39.7 (L) 40.5 - [facility] 48.5 % [facility] LABORATORY MCV 87.8 82.9 - [facility] 93.1 [facility] LABORATORY MCH 29.6 27.5 - [facility] 32.1 pg [facility] LABORATORY MCHC 33.8 32.0 - [facility] 35.7 gm/dL [facility] LABORATORY Platelets 189 145 - [address] [facility] x10(3)/[facility] LABORATORY RDWSD 45.6 (H) 36.0 - [facility] 45.0 [facility] LABORATORY RDWCV 14.3 (H) 11.4 - [facility] 13.8 % [facility] LABORATORY MPV 9.1 7.6 - 12.9 [facility] LABORATORY nRBC % Auto 0.0 % [facility] LABORATORY nRBC Abs Auto 0.000 0.000 - [place] DAV[place] 0.000 [facility] x10(3)/[facility] LABORATORY Specimen Anatomical Collection Method Collection Time Receive d Time (Source) Location / / Volume Laterality Blood specimen 07/06/2017 2:20 AM 017 2:33 (specimen) EST AM EST Resulting Agency Comment Spec In Lab Daphne Shahid MD HEMATOLOGY ORDERABLES Performing Organization Address City/State/ZIP Code Phon e Number [address] (ABNORMAL) APTT (07/06/2017 2:20 [...] [facility]/ZIP Code Phon e Number [address] POCT Glucose (07/06/2017 2:20 [...] Organization Address City/State/[place] [address] (ABNORMAL) Cardiac Enzymes (LEB/CGP) (07/06/2017 2:20 AM EST) P athologist Signature Troponin-T 2.13 (H) 0.00 - [place] 0.00 ng/mL [facility] [...] additional sample may be indicated. Reference: [place] Definition of Myocardial Infarction. Journal of the [...] Address City/State/ZIP [place] [address] (ABNORMAL) Hemoglobin A1c (07/06/2017 2:20 AM EST) Analysis Performed At Patho logist Time Signature Hemoglobin A1C 6.8 (H) 4.3 - 5.[address] [facility] % [facility] LABORATORY Comment: Reference Range: 4.3 - 5.6% [...] Mellitus, Diabetes Care 2013; 36: Suppl. 1, S67-20 Est Avg Gluc See note mg/dL [facility] LABORATORY Comment: Estimated Average Glucose [...] with hemoglobinopathies. Additional resources are available on [facility] ADA website. Macario HAMMOND, Ruthann J, Deysi R, et al. ??Tr anslating the A1C assay into estimated average glucose values. ??Diabetes Care 2008:31(8):4828-8763. Specimen Anatomical Collection Method Collection Time Receive d Time (Source) Location / / Volume Laterality Blood specimen 07/06/2017 2:20 AM 017 2:34 (specimen) EST AM EST Resulting Agency Comment Spec In Lab Daphne Shahid MD CHEMISTRY ORDERABLES Performing Organization Address City/State/ZIP [place] [address] (ABNORMAL) Lipid Panel (07/06/2017 2:20 AM EST) Patholo gist Method Time Signature Chol, Total 150 <=239 [place] mg/dL [facility] LABORATORY Triglycerides 129 <=199 [facility] mg/dL [facility] LABORATORY HDL 32 (L) >=40 [place] mg/dL [facility] LABORATORY LDL Cholesterol 92 <=190 [facility] mg/dL [facility] LABORATORY Chol/HDL Ratio 4.7 ratio [facility] LABORATORY Lipid See Note [place] Interpretation [facility] LABORATORY Comment: Lipid management should be guided by a p atient? s ASCVD risk, goals and preferences. ACC/AHA Guidelines recommend high intens ity statin if clinical ASCVD or LDL greater than or equal to 190 mg/dL. [email or web address] Adults aged 40-75 with LDL 70-189 mg/dL should have their 10 year ASCVD risk estimated with the ACC/AHA ASCVD risk es timator http://tools.acc.org/ZWGEM-Uwrp-Unhjaaus r/ Statin should be discussed if risk [...] Organization Address City/State/[place] [address] POCT Glucose (07/06/2017 1:09 AM EST) P athologist Signature POC Glucose 121 65 - [address] [facility] [facility] [...] Organization Address City/State/[place] [address] POCT Glucose (07/06/2017 12:06 AM EST) P athologist Signature POC Glucose 147 65 - 199 [place] mg/dL [facility] [...] Organization Address City/State/[place] [address] (ABNORMAL) POCT Glucose (07/05/2017 10:56 PM EST) P athologist Signature POC Glucose 200 (H) 65 - 199 [place] mg/dL [facility] [...] Organization Address City/State/[place] [address] (ABNORMAL) POCT Glucose (07/05/2017 10:05 PM EST) P athologist Signature POC Glucose 225 (H) 65 - 199 [place] mg/dL [facility] [...] Organization Address City/State/[place] [address] (ABNORMAL) POCT Glucose (07/05/2017 9:02 PM EST) P athologist Signature POC Glucose 301 (H) 65 - [address] [facility] [address] [...] Organization Address City/State/[place] [address] XR Chest PA or [...] 474 ms MUSE SYSTEM (Bezet) Calculated P [place] 50 degrees MUSE SYSTEM Calculated R [place] -28 degrees MUSE SYSTEM Calculated T [place] 90 degrees MUSE SYSTEM INTERPRETATION Sinus tachycardia [...] [facility] 6.10 [facility] x10(3)/[facility] L LABORATORY Lymphocytes % 7.0 % [facility] LABORATORY Lymphocytes Abs 0.7 (L) 0.9 - 3.[address] [facility] x10(3)/[facility] LABORATORY Monocytes % 3.7 % [facility] LABORATORY Monocyte Abs 0.4 0.3 - 0.[address] [facility] x10(3)/[facility] LABORATORY Eosinophils % 0.1 % [facility] LABORATORY Eosinophils Abs 0.0 0.0 - 0.[address] [facility] x10(3)/[facility] LABORATORY Basophils % 0.2 % [facility] LABORATORY Basophils Abs 0.0 0.0 - 0.[address] [facility] x10(3)/[facility] LABORATORY Immature Gran % 0.60 [...] Address City/State/ZIP [place] [address] (ABNORMAL) Hemogram (07/05/2017 8:20 PM EST) Analysis Performed At Patho logist Time Signature WBC 10.3 (H) 4.0 - 9.[address] [facility] x10(3)/[facility] LABORATORY RBC 4.64 4.58 - [facility] 5.54 [facility] x10(6)/[facility] LABORATORY Hemoglobin 14.1 13.7 - [facility] 16.5 gm/dL [facility] LABORATORY Hematocrit 40.8 40.5 - [facility] 48.5 % [facility] LABORATORY MCV 87.9 82.9 - [facility] 93.1 [facility] LABORATORY MCH 30.4 27.5 - [place] 32.1 pg [facility] LABORATORY MCHC 34.6 32.0 - [place] 35.7 gm/dL [facility] [facility] LABORATORY Platelets 204 145 - [address] [facility] x10(3)/[facility] LABORATORY RDWSD 46.1 (H) 36.0 - [facility] 45.0 [facility] LABORATORY RDWCV 14.5 (H) 11.4 - [facility] RYAN 13.8 % [facility] LABORATORY MPV 9.7 7.6 - 12.9 [facility] LABORATORY nRBC % Auto 0.0 % [facility] LABORATORY nRBC Abs Auto 0.000 0.000 - BARBARA ZHAORYAN 0.000 [facility] x10(3)/[facility] LABORATORY Specimen Anatomical Collection Method Collection Time Receive d Time (Source) Location / / Volume Laterality Blood specimen 07/05/2017 8:20 PM 017 8:27 (specimen) EST PM EST Resulting Agency Comment Spec In Lab Daphne Shahid MD HEMATOLOGY ORDERABLES Performing Organization Address City/State/[place] [address] APTT (07/05/2017 8:20 PM [...] Organization Address City/State/[place] [address] (ABNORMAL) Cardiac Enzymes (LEB/CGP) (07/05/2017 8:20 PM EST) athologist Signature Troponin-T 2.11 (H) 0.00 - BARBARA OLIVASCK 0.00 ng/mL [facility] [...] additional sample may be indicated. Reference: [place] Definition of Myocardial Infarction. Journal of the [...] Address City/State/[place] [address] (ABNORMAL) Magnesium (07/05/2017 8:20 [...] Address City/State/Z[place] [address] (ABNORMAL) Basic Metabolic Panel [...] or in patients with acute kidney failure. [email or web address] [email or web address] Specimen Anatomical Collection Method Collection Time Receive d Time (Source) Location / / Volume Laterality Blood specimen 07/05/2017 8:20 PM 017 8:27 (specimen) EST PM EST Resulting Agency Comment Spec In Lab Daphne Shahid MD CHEMISTRY ORDERABLES Performing Organization Address City/State/ZIP Code Phon e [place] [address] (ABNORMAL) POCT Glucose (07/05/2017 [...] Organization Address City/State/[place] [address] CARDIAC CATHETERIZATION (07/05/2017 6:47 PM EST) Anatomical Region Laterality Modality Other Specimen (Source) Anatomical Location Collection Method / Collectio n Time Received Time / Laterality Volume Narrative 07/05/2017 7:27 PM EST ?[facility] ? Cardiac Cathete rization/Intervention Report ? Patient Name: Natalya, Gregory ? Procedure Date: 07/05/2017 ? A #: [id number] ? Primary Physician: Clarisa, Jet T ? Case #: [id number] ? File Name: [id number] ? Catheterization Order Number: [id number] ? [facility] ? Final Report [place], [place] ? Patient Name: ? Gregory Natalya ?ID#: ?[id number] ? : ?1945 ? Procedure Date: ? [...] 35%, congestive ?heart failure during this admis latnoya and ischemic cardiomyopathy. 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 ? Jet Mckenna M.D. ? Electronically Signed by: Jet bunch M.D. ? Report Finalized: 07/05/2017 ??19:23 ? Report Last Ammended: 10/26/2017 ??10:29 ? Procedure Note Jet Mckenna MD - 10/26/2017Formatt ing of this note might be different from the original. [facility] Cardiac Catheterization/Intervention Re port Patient Name: Gregory Hoang Procedure Date: 07/05/2017 A #: [id number] Primary Physician: Jet Mckenna Case #: [id number] File Name: [id number] Catheterization Order Number: [id number] [facility] Final Report [place], [place] Patient Name: Gregory Hoang ID#: [id number] : 1945 Procedure Date: July 05, [...] angiograph y and IABP insertion in optical lab technician. Jet Mckenna M.D. Electronically Signed [...] Mccollum ? (Age): 1945(72y) Med Rec#: ? [id number] ?Sex: ?M ? [place] ? [facility] [place]Ht / Wt: ??173(cm)/86(kg) Pt. Loc: ?CCU ? BSA: ?2 Study Date: ?? 07/05/2017 ?Pt. Type: Inpatient Tape: ? Referring: Daphne Shahid ([id number]) Referring: MANDA ALCANTAR Reading: Blade Preston ([id number]) Cotton Dispatcher: Dayami Paula BA, [facility] Diagnosis: *ICD-10-PCS Non-ST elevation [...] E-wave Vmax ?0.8 ?m/sec ? MV deceleration [id number] ?msec ? MV A-wave Vmax ?0.8 ?m/sec [...] ? Mid-Inferior ?Akinetic ? Mid-Inferoseptal ?Hypokinetic ? [place]-Septal ? Akinetic ? [place]-Anterior ? Hypokinetic ? [place]-Lateral ?Hypokinetic ? [place]-Inferior ? Akinetic ? [place]-Tip ?Akinetic ? This report has been electronically sign ed by: _ Blade Preston MD ? 07/06/2017 08 :53:15 Images reviewed and interpretation verif ied [facility] Cardiac Ultrasound Laboratory Procedure Note Blade Preston MD - 07/06/2017Formatt ing of this note might be different from the original. Procedure: Transthoracic Echocardiogram Patient: NATALYA MCBRIDE(Age): [birth year]72y) Med Rec#: [id number] Sex: M [place] [facility] [place] Ht / Wt: 173(cm)/86(kg) Pt. Loc: CCU BSA: 2 Study Date: 07/05/2017 Pt. Type: Inpatie nt Tape: Referring: Daphne Shahid ([id number]) Referring: MANDA ALCANTAR Reading: Blade Preston ([id number]) Cotton Dispatcher: Dayami Paula BA, [facility] Diagnosis: *ICD-10-PCS Non-ST elevation [...] MV E-wave Vmax 0.8 m/sec MV deceleration quue900 msec MV A-wave Vmax 0.8 m/sec MV [...] Hypokinetic Mid-Posterolateral Hypokinetic Mid-Inferior Akinetic Mid-Inferoseptal Hypokinetic [place]-Septal Akinetic [place]-Anterior Hypokinetic [place]-Lateral Hypokinetic [place]-Inferior Akinetic [place]-Tip Akinetic This report has been electronically sign ed by: _ Blade Preston MD 07/06/2017 08:53:15 Images reviewed and interpretation verif ied [facility] Cardiac Ultrasound Laboratory Daphne Shahid MD ECHO ORDERABLES Differential, Automated (07/05/2017 4:55 PM EST) athologist Signature Neutrophils % 77.0 % [facility] LABORATORY Neutr Abs (ANC) 5.26 1.70 - [facility] 6.10 [facility] x10(3)/[facility] LABORATORY Lymphocytes % 13.3 % [facility] LABORATORY Lymphocytes Abs 0.9 0.9 - 3.[address] [facility] x10(3)/[facility] LABORATORY Monocytes % 8.2 % [facility] LABORATORY Monocyte Abs 0.6 0.3 - 0.[address] [facility] x10(3)/[facility] LABORATORY Eosinophils % 0.7 % [facility] LABORATORY Eosinophils Abs 0.0 0.0 - 0.[address] [facility] x10(3)/[facility] LABORATORY Basophils % 0.4 % [facility] LABORATORY Basophils Abs 0.0 0.0 - 0.[address] [facility] x10(3)/[facility] LABORATORY Immature Gran % 0.40 % [place] [...] 0.04 x10(3)/[facility] LABORATORY Specimen Anatomical Collection Method Collection Time Receive d Time (Source) Location / / Volume Laterality Blood specimen 07/05/2017 4:55 PM 017 5:24 (specimen) EST PM EST Resulting Agency Comment Spec In Lab Daphne Shahid MD HEMATOLOGY ORDERABLES Performing Organization Address City/State/ZIP [place] [address] (ABNORMAL) Hemogram (07/05/2017 4:55 PM EST) Analysis Performed At Patho logist Time Signature WBC 6.8 4.0 - 9.[address] [facility] x10(3)/[facility] LABORATORY RBC 4.67 4.58 - [facility] 5.54 [facility] x10(6)/[facility] LABORATORY Hemoglobin 14.0 13.7 - [facility] gm/dL [facility] LABORATORY Hematocrit 41.0 40.5 - [facility] 48.5 % [facility] LABORATORY MCV 87.8 82.9 - [facility] 93.1 [facility] LABORATORY MCH 30.0 27.5 - [facility] RYAN 32.1 pg [facility] LABORATORY MCHC 34.1 32.0 - [facility] 35.7 gm/dL [facility] LABORATORY Platelets 197 145 - [address] [facility] x10(3)/[facility] LABORATORY RDWSD 46.4 (H) 36.0 - [facility] 45.0 [facility] LABORATORY RDWCV 14.5 (H) 11.4 - [facility] [place] 13.8 % [facility] LABORATORY MPV 9.7 7.6 - 12.9 [facility] LABORATORY nRBC % Auto 0.0 % [facility] LABORATORY nRBC Abs Auto 0.000 0.000 - BARBARA DAVIS 0.000 [facility] x10(3)/[facility] LABORATORY Specimen Anatomical Collection Method Collection Time Receive d Time (Source) Location / / Volume Laterality Blood specimen 07/05/2017 4:55 PM 017 5:24 (specimen) EST PM EST Resulting Agency Comment Spec In Lab Daphne Shahid MD HEMATOLOGY ORDERABLES Performing Organization Address City/State/ZIP [place] [address] (ABNORMAL) Cardiac Enzymes (LEB/CGP) [...] additional sample may be indicated. Reference: [facility] [place] Definition of Myocardial Infarction. Journal of the [...] MD CHEMISTRY ORDERABLES Performing Organization Address City/[facility]/[place] [address] (ABNORMAL) pro-Brain Natriuretic Peptide (07/05/2017 4:55 PM EST) athologist Signature ProBNP 1,598 (H) <=125 [facility] pg/mL [facility] LABORATORY Specimen Anatomical Collection Method Collection Time Receive d Time (Source) Location / / Volume Laterality Blood specimen 07/05/2017 4:55 PM 017 5:24 (specimen) EST PM EST Resulting Agency Comment Spec In Lab Daphne Shahid MD CHEMISTRY ORDERABLES Performing Organization Address City/[facility]/ZIP Code Phon e Number [address] Magnesium (07/05/2017 4:55 PM [...] MD CHEMISTRY ORDERABLES Performing Organization Address City/[facility]/[place] [address] (ABNORMAL) Basic Metabolic Panel [...] or in patients with acute kidney failure. [email or web address] [email or web address]/[facility] Specimen Anatomical Collection Method Collection Time Receive d Time (Source) Location / / Volume Laterality Blood specimen 07/05/2017 4:55 PM 017 5:24 (specimen) EST PM EST Resulting Agency Comment Spec In Lab Daphne Shahid MD CHEMISTRY ORDERABLES Performing Organization Address City/[facility]/[place] [address] (ABNORMAL) APTT (07/05/2017 4:55 [...] Organization Address City/State/[place] [address] (ABNORMAL) POCT Glucose (07/05/2017 4:53 PM EST) P athologist Signature POC Glucose 208 (H) 65 - 199 [facility] [...] Address City/State/ZIP Code Phon e Number [address] EKG 12 Lead (07/05/2017 4:32 PM EST) Component Value Ref Range Test Analysis Performed Pathologis t Method Time At Signature Ventricular rate 97 BPM MUSE SYSTEM Atrial Rate 97 BPM MUSE SYSTEM P-R Interval 148 ms MUSE SYSTEM QRS Duration 96 ms MUSE SYSTEM Q-T Interval 364 ms MUSE SYSTEM QTC Calculated 462 ms MUSE SYSTEM (Bezet) Calculated P [place] 48 degrees MUSE SYSTEM Calculated R [place] -33 degrees MUSE SYSTEM Calculated T [place] 98 degrees MUSE SYSTEM INTERPRETATION Normal sinus [...] 20 mEq 1003 (Given - Provider: More Lutehr RN) 0841 (Given - Provider: Em Jones [...]
Routine documented in this encounter Care Teams Well Logging Mud Analysis Captain Relationship Specialty Start Date End Date Lovely Vicente MD PCP - General 04/16/[address] [place] [address] [address] [place] [address] documented as of this encounter
--- OUTSIDE RECORDS SUMMARY | 2022-04-17 08:28 | XMS_ITS | Encounter Summary ---
:1945 [place] [address] Care Team Providers Name Role Phone Lovely Vicente MD Primary Care Provider Reason for Visit Auth/Cert Specialty Diagnoses / Procedures Referred By Contact Refer red To Contact Diagnoses STEMI (ST elevation myocardial infarction) NSTEMI STEMI Procedures CARDIAC CATHETERIZATION NAYE IPI Referral ID Status Reason Start Date Expiration Date Visits Requ ested Visits Authorized [id number] 1 1 Encounter Details Date Type Department Care Team Description 07/07/2017 Anesthesia Event Main Operating Room Yifan Jaime MD [facility] [place] [address] [facility] Ginny Murray MD [facility] [place] [address] [facility] [place] [address] Anesthesia Record Procedure Summary Procedure Name [...] 2342 LDA Cath/EP Sheath 07/05/17; 0606; 8 Finnish 07/05/17 0606 by [id number] by (Fr); Right; Femoral L[place]iana Park, Yane Cook, RN PIV 07/05/17; 1720; median 07/05/17 1720 by 07/11/17 2355 by vein (underside of arm), Prior, Yanet Maza, Angela Mccurdy, left; 18 gauge; removed AQUACULTURIST per policy/procedure; 07/11/17; 2355 Intra-Aortic Balloon 07/05/17; [...] Miller, Carrie L, Type: Cuffed; ETT Size: SENIOR PRINCIPAL 8 mm; Santiago Blade: 2; Notes: Asleep, [...] Murray MD - 07/08/2017 5:08 PM EST [facility] [place] Department of Anesthesiology Post-procedure Note Patient: Don Fatima Procedure Summary Date Anesthesia Start Anesthesia Stop Room / Location 07/07/17 1335 1836 [facility] OR [facility] MAIN OR Procedure Diagnosis Surgeon Responsible Provider @CABG, USING ARTERIAL GRAFT;SINGLE ARTERIAL GRAFT (WRVU 33.75) (N/A Chest); @CABG, TWO VENOUS GRAFTS & ARTERIAL GRAFT (WRVU 7.93) (N/A Chest); ENDOSCOPIC HARVEST VEIN(S) FOR CABG (WRVU 0.31) (Right Leg) (CAD) Yuan Freitas MD Hartman, Gregg S, MD All Anesthesia Providers: Anesthesiologist: Yifan Perez MD Backing In Machine Tender: Ginny Murray MD Most Recent Vitals: 07/08/17 [...] [facility] ??? PRO COLONOSCOPY, REMV LESN, SNARE 01/16/2014 COLONOSCOPY, POLYPECTOMY, REMOVAL LESION BY SNARE performed by Nohemi Jaimes MD at [facility] ENDOSCOPY ??? PRO THYROIDECTOMY 03/28/2013 THYROIDECTOMY, TOTAL OR COMPLETE performed by Manny Mcknight MD at [facility] MAIN OR Social History Substance Use [...] Appointment Cardiology Zulma Dolan MD [facility] [place] [address] (Wo rk) 05/28/2022 Laboratory Appointment Lab 05/28/2022 Office Visit Cardiology Zulma Dolan MD [facility] [place] [address] Liz Poole PA [facility] [place] [address] 06/10/2022 Office Visit Dermatology Laura Scherer MD [facility] [address] [facility] [place], [place] [address] (Wo rk) documented as of [...] mg documented in this encounter Care Teams Bicycle Racer Relationship Specialty Start Date End Date Lovely Vicente MD PCP - General 04/16/[address] [place] [address] documented as of this encounter
--- OUTSIDE RECORDS SUMMARY | 2022-04-17 08:29 | XMS_ITS | Encounter Summary ---
:1945 [place] [address] Care Team Providers Name Role Phone Lovely Vicente MD Primary Care Provider Reason for Visit Auth/Cert Specialty Diagnoses / Procedures Referred By Contact Refer red To Contact Diagnoses STEMI (ST elevation myocardial infarction) NSTEMI STEMI Procedures CARDIAC CATHETERIZATION NAYE IPI Referral ID Status Reason Start Date Expiration Date Visits Requ ested Visits Authorized [id number] 1 1 Encounter Details Date Type Department Care Team Description 07/05/2017 Surgery Sales Communications Manager Jet Guan, CARDIAC CATHETERIZATION [facility] [place] [address] CARDIOLOGY DEPT. [phone] [place], [place] [address] (Wo rk) Social History Tobacco [...] this encounter Discharge Summaries Martha Teague S, MACHINE RIGGER - 07/14/2017 9:38 AM EST Inpatient - Discharge Summary Patient Name: Gregory Hoang Patient Age: 72 y.o. Birthdate: 1945 Language: Sudanese Race: White Ethnicity: Not nor Admit Date: [...] , @ 1:20p Patient to follow-up with Corporate Relations Director/heart failure team in one week. An appointment will be made for you. You may call [phone] Patient to follow-up with Cardiac Surgery, Dr. Yuan Webber, in ~ 4 weeks with CXR, EKG. Inpatient Provider Contact Information: [facility] Section of Cardiac Surgery [facility] [id number] FAX [phone] Discharge Diagnoses (Hospital Problems) Primary Diagnoses: CAD [...] performed by Yuan Webber MD at [facility] OR ??? PRO CABG, ARTERY-VEIN, TWO N/A 07/07/2017 @CABG, TWO VENOUS GRAFTS & ARTERIAL GRAFT (WRVU 7.93) performed by Yuan Webber MD at [facility] OR ??? PRO COLONOSCOPY, REMV LESN, SNARE 01/16/2014 COLONOSCOPY, POLYPECTOMY, REMOVAL LESION BY SNARE performed by Nohemi Jaimes MD at [facility] ENDOSCOPY ??? PRO ENDOSCOPY W/VIDEO-ASST VEIN HARVEST, CABG Right 07/07/2017 ENDOSCOPIC HARVEST VEIN(S) FOR CABG (WRVU 0.31) performed by Yuan Webber MD at [facility] OR ??? PRO THYROIDECTOMY 03/28/2013 THYROIDECTOMY, TOTAL OR COMPLETE performed by Manny Mcknight MD at [facility] OR Prior To Admission Medications Prescriptions Prior to Admission Medication Sig Dispense Refill Last Dose ??? levothyroxine (SYNTHROID) 175 mcg Tablet Take 1 tablet by mouth daily. 90 tablet 3 07/05/2017 [id number] ??? ascorbic acid, vitamin C, (VITAMIN C) [...] hospital and ruled infor non-ST segment elevation CT. This almost certainly represents the residual of [...] Gregory Hoang was admitted to [facility] on 07/05/2017 via the Cardiology Service. During his hospital course, he was taken emergently to the irrigation laborer for an ongoing STEMI. An IABP [...] not take or discontinue any prescription or rvfb-aek-zagljkq medications without asking your doctor or pharmacist [...] Yuan Webber and/or the Cardiac Surgery Physician Preschool Paraprofessional Team may be reached at . Weight: [...] Dr. Yuan Webber. You may use a [place] Track or treadmill but avoid any pulling [...] with the surgeon. Do not ride motorcycles, [employer] tractors or horses. Avoid the use of [...] should resume a low fat, low cholesterol, [place] Heart Association Diet/Diabetic diet. Driving: No driving [...] , @ 1:20p Patient to follow-up with Corporate Relations Director/heart failure team in one week. Appointment will be made for you. You may call [phone] Patient to follow-up with Cardiac Surgery, Dr. [...] THREE L Lab 3L [facility] [phone] 09/07/2017 4:00 PM Luz Prescott MD Endocrinology at [facility] [phone] Future Orders Complete By Expires EKG 12 Lead [EKG1 Custom] 08/14/2017 02/13/2018 Process Instructions: Scheduling Instructions: Questions: Which DH location will this be performed?: [facility] Is a rhythm strip needed?: No If EKG Reason is Pre-op Evaluation, indicate diagnosis for surgery.: XR Chest PA & Lateral (Generic) [[id number] Custom] 08/14/2017 02/13/2018 Process Instructions: Scheduling Instructions: Questions: Where will study be performed?: [facility] Portable exam?: Reason for exam and clinical history: CABG x 3 Other pertinent information: Stat read required?: Date of injury if applicable: Requested Time: Referral to Cardiac Rehab [[id number] Custom] As directed Process Instructions: If no progress note charted, please enter Clinical details in comments. Scheduling Instructions: Questions: My question or request is: s/p CABG. Cardiac rehab at [facility] Referral to Home Health - at DISCHARGE [[id number] CPT(R)] As directed Process Instructions: Scheduling Instructions: Comments: DOCUMENTATION FOR VNA SERVICES (INCLUDING THOSE PATIENTS WITH MEDICARE COVERAGE REQUIRING HOME VNA SERVICES AND/OR HOSPICE SERVICES) PATIENT'S LOCATION: Gregory Hoang [address] [place] [address] [place] [address] (home) Telephone Information: Production Estimator's Name: self In discussion with the attending physician, it is certified that this patient is under their care and that they, or a Nurse Practitioner, or Physician Preschool Paraprofessional who is working directly with them, had [...] [facility] ([facility] [place] [facility]-is in [place] PHONE: [phone] FAX: [phone] RN orders: Cardiopulmonary assessment, incisional assessment, assess vital signs, assessment of rehab progress, medication management and effectiveness, home safety evaluation. Please draw INR if indicated and send result to:Dr Vicente [phone] PT ORDERS: Continue rehab for endurance, gait stability and strength with mobility and transfers. Home safety evaluation. Home exercise program if appropriate. Start of Care Date:24-48 hours after discharge SPECIAL INSTRUCTIONS: For any follow up questions, needs, or issues please call the Cardiac Surgery Office at [phone] FOR MEDICARE ONLY: (please delete this section [...] OR AFTER 07/17/2017 Signed: Martha Teague APRN [facility] Section of Cardiac Surgery [facility] [phone] FAX [phone] Date: 07/14/2017 CC: MD Ivania Cr Betsy, PA [address] [place] [phone] documented in this encounter Discharge Instructions Discharge [...] not take or discontinue any prescription or pedf-yap-simftob medications without asking your doctor or pharmacist [...] Yuan Webber and/or the Cardiac Surgery Physician Preschool Paraprofessional Team may be reached at . ?? [...] Dr. Yuan Webber. You may use a [place] Track or treadmill but avoid any pulling [...] with the surgeon. Do not ride motorcycles, [employer] tractors or horses. Avoid the use of [...] should resume a low fat, low cholesterol, [place] Heart Association Diet/Diabetic diet. ?? Driving: No [...] appointments: ? Patient to follow-up with PCP, Lovley Vicente MD, in 1-2 weeks. An appointment has been made for you on 07/22/2017, , @ 1:20p ?? Patient to follow-up with Corporate Relations Director/heart failure team in one week. An appointment has been made for you, you can call [phone] ?? Patient to follow-up with Cardiac Surgery, [...] THREE L Lab 3L [facility] [phone] ?? 09/07/2017 4:00 PM Luz Prescott MD Endocrinology at [facility] [phone] Future Orders Complete By Expires ?? EKG 12 Lead [EKG1 Custom] 08/14/2017 02/13/2018 ?? Process Instructions: ? Scheduling Instructions: ? Questions: ? Which location will this be performed?: [facility] ?? Is a rhythm strip needed?: No ?? If EKG Reason is Pre-op Evaluation, indicate diagnosis for surgery.: ?? XR Chest PA & Lateral (Generic) [[id number] Custom] 08/14/2017 02/13/2018 ?? Process Instructions: ? Scheduling Instructions: ? Questions: ? Where will study be performed?: [facility] ?? Portable exam?: ?? Reason for exam and clinical history: CABG x 3 ?? Other pertinent information: ?? Stat read required?: ?? Date of injury if applicable: ?? Requested Time: ?? Referral to Cardiac Rehab [[id number] Custom] As directed ? Process Instructions: ?? [...] - 07/14/2017 2:34 PM EST The patient/sales support representative has been provided a list of Home Health Agencies/DME vendors which serve their preferred geographic area. A letter describing our affiliations was reviewed with them and theywere educated about their right to choose where referrals are placed. Patient requests referral to [facility]. PHONE: [phone] FAX: [phone] Expected date of discharge: 07/14 Referral routed to the Electric Shipyard Operator for matching with agency/vendor and to [...] [place] Endocrinology Diabetes Management Pager [phone] minutes of this 35 minute visit was spent with the patient in counseling on diabetes and treatment plan, reviewing all glucose and insulin data as well as relevant laboratory results with the patient, and coordination of care on the inpatient unit including nursing and primary team. Zulma Andres RN - 07/14/2017 10:30 AM EST The patient/sales support representative has been provided a list of Home Health Agencies/DME vendors which serve their preferred geographic area. A letter describing our affiliations was reviewed with them and theywere educated about their right to choose where referrals are placed. Patient requests referral to : Yasmani Munguia ([facility] [place] [facility]-is in [place]) PHONE: [phone] FAX: [phone]. Expected date of discharge: 07/14/17 Referral routed to the Electric Shipyard Operator for matching with agency/vendor and to [...] hours. If BG remains greater than 240, kmehij19 units (no more than three times) &??call [...] [place] Endocrinology Diabetes Management Pager [phone] minutes of this 25 minute visit [...] of infiltration/extravasation Discussed plan of care with SOLAR WATER HEATER INSTALLER and RN. Elevate exrtemity and apply [...] measuring tape and identifier in the photo) PODIATRY ASSISTANT CARING FOR THIS PATIENT WILL CONTINUE TO [...] measuring tape and identifier in the photo) PODIATRY ASSISTANT CARING FOR THIS PATIENT WILL CONTINUE TO [...] infiltrates addressed by this typewriter tester.All of Mr. Hoang's responses were entirely appropriate. Images of infiltrates attached here. Martha Sharp APRN - 07/13/2017 8:01 AM EST Cardiac Surgery Progress Note: ID: [id number] 72 year old male POD#6 s/p CABGx3 [...] ?? I have met with the patient/sales support representative to discuss discharge planning needs. I have provided the [facility] [place] Office of Care Management letter from the Senior Advisory pertaining to rehab referrals. I have also provided a letter describing our affiliations within the [facility] and educated them about their right to choose where referrals are placed. ?? I reviewed the different levels of rehab including SNF, swing, acute and LTAC with the patient/sales support representative. ?? The patient/sales support representative has been provided a list of facilities within their preferred geographic area. ?? I have requested that the patient/sales support representative provide at least three choices for referral. ?? The patient/sales support representative have requested referrals to: ?? 1. . ?? 2. [facility] ?? 3. More to be entered ?? Expected date of discharge: 07/14 Note routed to Electric Shipyard Operator who will communicate referrals to facilities [...] hours. If BG remains greater than 240, gdcimd78 units (no more than three times) & [...] hours. If BG remains greater than 240, szxkmo35 units (no more than three times) & call for new basal insulin orders. ??If less than 240 after two hours, give no insulin and resume prior schedule. Will continue to follow Katerin Azul APRN [facility] [place] Endocrinology Diabetes Management Pager [phone] minutes of this 35 minute visit was spent with the patient in counseling on diabetes and treatment plan, reviewing all glucose and insulin data as well as relevant laboratory results with the patient, and coordination of care on the inpatient unit including nursing and primary team. Makayla Stevenson APRN - 07/12/2017 9:52 AM EST Cardiac Surgery Progress Note: ID: [id number] 72 year old male POD#5 s/p CABGx3 [...] 7:18 PM EST Patient arrived from [facility]. VSS. MSI dressing pulled off [...] hours. If BG remains greater than 240, unqvbg82 units (no more than three times) & [...] AM EST Cardiac Surgery Progress Note: ID: [id number] 72 year old male POD#4 s/p CABGx3 [...] hours. If BG remains greater than 240, luwnjc16 units (no more than three times) & [...] AM EST Cardiac Surgery Progress Note: ID: [id number] 72 year old male POD#3 s/p CABGx3 [...] Gas) No results found for: PHART, PO2ART, TRO9WJR Assessment/Plan: 72 year old male POD#3 s/p [...] Mami Thao - 07/09/2017 6:29 PM EST Campaign Associate Encounter Note Patient Name: Gregory Hoang : [id number] MR#: [id number] Admit Date: 07/05/2017 4:20 PM Hospital Day 4 days Narrative: Patient was sitting in chair, hugging heart pillow, opened his eyes, nodding to come into room Assessment: Patient was sleepy. Intervention and Outcome: Introduced professional system administrator services and patient reached his hand out in appreciation. Follow-up: Campaign Associate remains available for support. Time in [...] property staff accountant to cover care Maddison eCe PA - 07/09/2017 9:00 AM EST Cardiac Surgery Progress Note: ID: [id number] 72 year old male POD#2 s/p CABGx3 [...] on rounds. Signed: STEPHANIE Iqbal [facility] Section of Cardiac Surgery Date: 07/09/2017 [place] [...] when IABP d/c'ed. Gretchen Carolina, PT Pager [phone] Maddison Cee PA - 07/08/2017 11:27 AM EST Cardiac Surgery Progress Note: ID: [id number] 72 year old male POD#1 s/p CABGx3 [...] on rounds. Signed: STEPHANIE Iqbal [facility] Section of Cardiac Surgery Date: 07/08/2017 Nick [...] in place in R femoral. No hematoma. STEEPING PRESS OPERATOR- Intact Psych- Anxious Skin- Dry, no [...] intact. IABP in place in R femoral. STEEPING PRESS OPERATOR- Intact Psych- Anxious Skin- Dry, no [...] note for details. DAPHNE SHAHID MD Pager [phone] ClarisaJet lynn MD - 07/05/2017 6:48 PM EST Preliminary Cardiac Catheterization Procedure Note: Procedure(s) performed: Left heart cath, IABP insertion Access: Right MEDICARE INTERVIEWER-->8fr IABP A time-out was conducted prior to [...] effect. Heparin gtt maintained. Pt transferred to irrigation laborer. documented in this encounter H&P Notes Daphne Shahid MD - 07/05/2017 6:08 PM EST CARDIOLOGY HISTORY & PHYSICAL EXAM Date of Admission: 07/05/2017 ( Hospital Day 0 days ) Responsible Attending: Daphne Shahid MD PCP: Lovely Vicente MD PCP#: [phone] Patient Active Problem List Diagnosis Code ??? [...] with heparin drip and transferred to [facility]. While there, continued sob, question of chest pain. Stat TTE showing WMA diffusely and EF around 20%. No significant valvular disease. Taken to the irrigation laborer urgently [facility] monitor I/O - s/p lasix in the irrigation laborer, redose to aim net neg 1L [...] Medicine, PGY-2 Cardiology S1, Team Pager # [phone] CARDIOLOGY ATTENDING NOTE Patient: Gregory Hoang Date [...] amenable for PCI. DAPHNE SHAHID MD Pager [phone] documented in this encounter Miscellaneous Notes Consult Note - Daphne Shahid MD - 07/14/2017 11:46 AM EST Heart Failure Service Inpatient Consult Note Gregory Hoang Date of : 1945 Age: 72 y.o. Today's date: 07/14/17 PCP: Lovely Vicente MD CONTROL ROOM SUPERVISOR: None [facility] [place] Service[place] [facility] Reason for Consult: Dr. Webber has requested [...] performed by Yuan Webber MD at [facility] OR ??? PRO CABG, ARTERY-VEIN, TWO N/A 07/07/2017 @CABG, TWO VENOUS GRAFTS & ARTERIAL GRAFT (WRVU 7.93) performed by Yuan Webber MD at [facility] OR ??? PRO COLONOSCOPY, REMV LESN, SNARE 01/16/2014 COLONOSCOPY, POLYPECTOMY, REMOVAL LESION BY SNARE performed by Nohemi Jaimes MD at [facility] ENDOSCOPY ??? PRO ENDOSCOPY W/VIDEO-ASST VEIN HARVEST, CABG Right 07/07/2017 ENDOSCOPIC HARVEST VEIN(S) FOR CABG (WRVU 0.31) performed by Yuan Webber MD at [facility] OR ??? PRO THYROIDECTOMY 03/28/2013 THYROIDECTOMY, TOTAL OR COMPLETE performed by Manny Mcknight MD at [facility] OR Outpt Meds: Current Outpatient Prescriptions [...] following studies: EKG 07/14/17: NSR 75 bpm, SADDLE CUTTER anterior infarct, LAD CXR 07/11/17: FINDINGS: Sternotomy wires. The patient has been extubated, left chest tube removed, and Whitethorn-Suzi catheter removed since the 07/07/2017 study. Atelectasis [...] was discussed with Kono. Jaden Kelley MD Supercalender Operator Pager [phone] CARDIOLOGY ATTENDING NOTE Patient: Gregory Hoang Date [...] heart failure clinic. DAPHNE SHAHID MD Pager [phone] Plan of Care - Alden Chavarria PTA [...] home with assist Alden Chavarria PTA Pager: [phone] Inpatient Physical Therapy Problem: Acute Rehab Services [...] sit/sit to supine -- Bed Mobility Goal, [place] Level supervision required -- Bed Mobility Goal, [...] - 3 days -- Gait Training Goal, [place] Level supervision required -- Gait Training Goal, [...] days -- Transfer Training Goal, Activity Type pvk-wg-pcugv/bicxs-rg-rkv;ytz-zc-syojz/kafnk-yv-aky;toilet -- Transfer Train Goal, [place] Level supervision required -- Transfer Training Goal, [...] keeping present for 2 days per family. Territory Account Manager noted of frustrations, house keeping sent to room. Patient offered showered twice, refused. at bedside, frustrated that shower not complete, informed that patient had refused several times. requesting to see INCIDENT COORDINATOR, paged sent to Martha, will come to bedside (middle of consult). not willing to wait, Martha notified that family had gone home. Encouraged to come for morning rounds a t 8am. Diabetes team at bedside - insulin adjustments made. Call cabello in reach. Continue to monitor. PLAN MOVING FORWARD: Ambulate, dressing changes BID, Please change drsg at 4am per Martha INCIDENT COORDINATOR request. INDIVIDUALIZED FALL PREVENTION INTERVENTIONS: Patient-specific fall [...] levels on the lower side, 60ml of [place] juice given after a FS of 80. [...] 07/13/17 0502 Interdisciplinary Rounds/Family Conf Participants case filler;dietitian/nutrition services;nursing;occupational therapy;patient;pharmacy;physical therapy;physician Plan of Care - [...] monitoring required during toileting and ADLs]: RN SOLAR WATER HEATER INSTALLER Surveillance [continuous indirect monitoring]: Barrett Monitor CPG [...] Anticipated Discharge Disposition: home with assist Pager: [phone] CLARISSA SEGAL, PT 07/12/2017 Physical Therapy Rehabilitation [...] to sit/sit to supine Bed Mobility Goal, [place] Level supervision required Bed Mobility Goal, Additional Goal adheres to psternal precautions for transfer Goal: Gait Training Goal Stand Alone Therapy Goal Outcome: Ongoing (Interventions Implemented as Appropriate) 07/12/17 1225 Gait Training Goal Gait Training Goal, Date Established 07/12/17 Gait Training Goal, Time to Achieve 2 - 3 days Gait Training Goal, [place] Level supervision required Gait Training Goal, Assist [...] 3 days Transfer Training Goal, Activity Type jir-pk-qzwba/hzjtx-dy-ckc;thg-kw-coaqx/pktct-hv-adu;toilet Transfer Train Goal, [place] Level supervision required Transfer Training Goal, Additional [...] IV site, amio to other piv and SUPERVISOR REAL ESTATE OFFICE at bedside to help assess, IV removed. [...] staff, he stood and marched in place. [place] weak, wanting to sit back down. Remained [...] Health/Prescription Coverage: Primary Insurance: MEDICARE Secondary Insurance: [employer] [place] Prescription Coverage: yes Preferred Pharmacy: [facility] [place] Other: none Primary Care Provider: Lovely Vicente MD [phone] Patient/Caregiver Goals of Treatment:live and get my breath back Potential Needs for Transition of Care: Rehab/SNF: [facility] Home Health: NA DME: TBD Dialysis: na Community Resources: available Transportation: yes Other: none Anticipated Barriers to Discharge/Special Considerations: none Plan: Likely SNF Rehab before home A member of the Care Management team will continue to monitor progress, follow for continuity of care and assist with transition of care planning. ERLIN Weiss Pager: [phone] Consult Note - Katerin Azul RN - [...] or issues filling prescriptions? Working meter? Accu-chek Elfi plus Monitoring ? Most recent HA1c was [...] potential to d/c gtt and start CF. shelter diabetes care: Medications - Outpatient treatment regimen recommendations pending based on the hospital course. Monitoring - continue BG tid ac & hs Diet - low fat/low carb diet Exercise - weight-bearing exercise 30 min/day, as tolerated Thank you for allowing us to provide care for your patient W/E coverage, Dr. Jeane Tatum, pager [phone] Katerin Azul APRN Endocrinology Diabetes Management Pager [phone] Plan of Care - Stephanie Godoy RN [...] Operative Note Patient Name: Gregory Hoang : [id number] MR#: [id number] Case Date: 07/07/2017 Surgeon: Surgeon(s) and Role: * Yuan Webber MD - Primary * Michael Drake PA - Physician Preschool Paraprofessional * Linda Flores PA - Physician Preschool Paraprofessional Preoperative diagnosis: 3VD Postoperative diagnosis: CAD, severe [...] Operative Note Patient Name: Gregory Hoang : [id number] MR#: [id number] Case Date: 07/07/2017 Surgeon: Surgeon(s) and Role: * Yuan Webber MD - Primary * Michael Drake PA - Physician Preschool Paraprofessional * Linda Flores PA - Physician Preschool Paraprofessional Preoperative diagnosis: 3VD Postoperative diagnosis: CAD, severe [...] (Acute Coronary Syndrome) (Adult) [facility] [place] 07/07/17621 Cardiac: ACS (Acute [...] major CV events such as , stroke, CT, repeat revascularization compared to PCI). In this [...] Hahn, MS3 [employer] [facility] Cardiology S1 (Pager [phone]) Plan of Care - Emelia Ibarra RN [...] hospital and ruled infor non-ST segment elevation CT. This almost certainly represents the residual of [...] performed by Manny Mcknight MD at [facility] MAIN OR ??? PRO COLONOSCOPY, REMV LESN, SNARE 01/16/2014 COLONOSCOPY, POLYPECTOMY, REMOVAL LESION BY SNARE performed by Nohemi Jaimes MD at [facility] ENDOSCOPY ??? PRO THYROIDECTOMY 03/28/2013 THYROIDECTOMY, TOTAL OR COMPLETE performed by Manny Mcknight MD at [facility] MAIN OR Social History: Social [...] with other involved physicians Yuan Webber MD [phone] Med Student Progress Note - Katty Hahn [...] major CV events such as , stroke, CT, repeat revascularization compared to PCI). In this [...] or BiPAP - s/p lasix in the irrigation laborer, was net -1.5L - s/p plavix [...] insulin drip - hold metformin - f/u [facility] ?? #Home Meds - continue levothyroxine 175mcg - CPAP at night ?? # Routine - DVT PPx: heparin drip - Diet: Healthy heart diet, NPO at midnight for CABG tomorrow - Code Status: FULL - Dispo: CVCC Katty Hahn, M3 [facility] Cardiology S1 (Pager [phone]) Plan of Care - Stephanie Godoy RN - 07/06/2017 5:00 AM EST Problem: Patient Care Overview Goal: Plan of Care Review 07/06/17 2724 Coping/Psychosocial Plan Of Care Reviewed With patient;family [...] in urinal without difficulty. Lasix given in irrigation laborer, 1.4 L out at this time. [...] Zulma Dolan MD [facility] [place] [address] (Wo rk) 05/28/2022 Laboratory Appointment Lab 05/28/2022 Office Visit Cardiology Zulma Dolan MD [facility] [place] [address] Liz Poole PA [facility] [place] [address] 06/10/2022 Office Visit Dermatology Laura Scherer MD [facility] DR [address] [place], [place] [address] (Wo rk) Scheduled Orders Name [...] procedure are i n the results section. DISPLAY AND BANNER DESIGNER SCAN 07/15/2017 12:00 Res ults for [place] [...] this [place] [place] AM EST procedure are i n the [...] this [place] [place] PM EST procedure are i [...] 4:55 Results f or this [place] [place] PM EST procedure are i [...] 2017 EXAMINATION: XR CHEST PA AND LATERAL ([employer]) CLINICAL HISTORY: CABG x 3 TECHNIQUE: PA [...] Teague APRN IMG DX ORDERABLES SCAN DOC: DISPLAY AND BANNER DESIGNER (07/15/2017 12:00 AM EST) Narrative 07/15/2017 12:00 [...] 186 65 - 199 [facility] mg/dL [facility] LABORATORY [...] City/State/[place] [address] POCT Glucose (07/14/2017 7:52 AM EST) athologist Signature POC Glucose 126 65 - 199 [facility] mg/dL [facility] LABORATORY Comment: Supplemental ranges: <140 mg/dL before meals <180 mg/dL all other times of the day Specimen Anatomical Collection Method Collection Time Receive d Time (Source) Location / / Volume Laterality Blood specimen 07/14/2017 7:52 AM 017 7:52 (specimen) EST AM EST Yuan Webber MD POINT OF CARE TEST ORDERABLE S Performing Organization Address City/[facility]/[place] [address] (ABNORMAL) Prothrombin Time (07/14/2017 4:46 AM EST) athologist Signature PT 26.4 (H) 11.8 - 14.0 [facility] LABORATORY INR 2.4 (H) 0.9 - 1.1 [facility] [...] Wilson APRN HEMATOLOGY ORDERABLES Performing Organization Address City/[facility] Code [facility] [place] [address] Potassium (07/14/2017 4:46 AM EST) athologist Signature Potassium 4.3 3.5 - 5.0 [facility] mmol/L [facility] LABOR[facility]ORY Comment: Please note: ??Patients [...] Address City/State/ZIP Code Phon e Number [address] POCT Glucose (07/14/2017 4:34 AM EST) athologist Signature POC Glucose 115 65 - 199 [place] mg/dL [facility] LABORATORY Comment: Supplemental ranges: <140 mg/dL before meals <180 mg/dL all other times of the day Specimen Anatomical Collection Method Collection Time Receive d Time (Source) Location / / Volume Laterality Blood specimen 07/14/2017 4:34 AM 017 4:34 (specimen) EST AM EST Yuan Webber MD POINT OF CARE TEST ORDERABLE S Performing Organization Address City/[facility]/ZIP Code Phon e Number [address] POCT Glucose (07/13/2017 11:33 PM EST) athologist Signature POC Glucose 132 65 - 199 [place] mg/dL [facility] LABORATORY Comment: Supplemental ranges: <140 mg/dL before meals <180 mg/dL all other times of the day Specimen Anatomical Collection Method Collection Time Receive d Time (Source) Location / / Volume Laterality Blood specimen 07/13/2017 11:33 7 (specimen) PM EST 11:33 PM EST Yuan Webber MD POINT OF CARE TEST ORDERABLE S Performing Organization Address City/[facility]/ZIP Code [place] [address] POCT Glucose (07/13/2017 9:25 PM EST) athologist Signature POC Glucose 121 65 - 199 [place] mg/dL [facility] LABORATORY [...] Address City/State/ZIP Code Phon e Number [address] POCT Glucose (07/13/2017 4:55 PM EST) athologist Signature POC Glucose 79 65 - 199 [facility] RYAN mg/dL [facility] LABORATORY [...] Address City/State/ZIP Code Phon e Number [address] POCT Glucose (07/13/2017 11:16 AM EST) athologist Signature POC Glucose 163 65 - 199 [facility] R[facility] mg/dL [facility] LABORATORY [...] Address City/State/ZIP Code Phon e Number [address] POCT Glucose (07/13/2017 8:07 AM EST) athologist Signature POC Glucose 96 65 - 199 [place] mg/dL [facility] LABORATORY [...] Address City/State/ZIP Code Phon e Number [address] (ABNORMAL) Prothrombin Time (07/13/2017 4:26 AM EST) P athologist Signature PT 20.8 (H) 11.8 - 14.0 [facility] LABORATORY INR 1.8 (H) 0.9 - 1.1 [facility] [...] Organization Address City/State/[place] [address] (ABNORMAL) Basic Metabolic Panel (non-fasting) (07/13/2017 4:26 AM EST) athologist Signature Glucose Lvl 95 65 - 199 [facility] mg/dL [facility] LABORATORY Comment: Diabetes: >=200 mg/dL plus symp toms BUN 25 (H) 10 - 20 mg/dL [facility] LABORATORY Creatinine 1.19 0.80 - 1.50 mg/dL [facility] LABORATORY Sodium 143 135 - 145 mmol/L [facility] LABORATORY Potassium 3.7 3.5 - 5.0 mmol/L [facility] [...] Calcium 7.7 (L) 8.5 - 10.5 mg/dL [facility] LABORATORY Estimated GFR 60 >=60 [facility] LABORATORY Comment: The reported eGFR should be multiplied b y 1.2 for patients. The MDRD is not an appropriate measure o f renal function for patients with body mass extremes or in patients with acute kidney failure. http://[employer]/DHnkdep http://[employer]/DHMCnkf Specimen Anatomical Collection Method Collection Time Receive d Time (Source) Location / / Volume Laterality Blood specimen 07/13/2017 4:26 AM 017 4:46 (specimen) EST AM EST Resulting Agency Comment Spec In Lab Makayla Wilson APRN CHEMISTRY ORDERABLES Performing Organization Address City/State/ZIP Code Phon e Number [address] POCT Glucose (07/13/2017 3:52 AM EST) athologist Signature POC Glucose 93 65 - 199 [facility] mg/dL [facility] LABORATORY [...] Address City/State/ZIP Code Phon e Number [address] POCT Glucose (07/13/2017 12:21 AM EST) athologist Signature POC Glucose 80 65 - 199 [facility] mg/dL [facility] LABORATORY [...] Address City/State/ZIP Code Phon e Number [address] POCT Glucose (07/12/2017 8:22 PM EST) athologist Signature POC Glucose 119 65 - 199 [place]HA[place] mg/dL [facility] LABORATORY Comment: Supplemental ranges: <140 mg/dL before meals <180 mg/dL all other times of the day Specimen Anatomical Collection Method Collection Time Receive d Time (Source) Location / / Volume Laterality Blood specimen 07/12/2017 8:22 PM 017 8:22 (specimen) EST PM EST Yuan Webber MD POINT OF CARE TEST ORDERABLE S Performing Organization Address City/[facility]/ZIP Code Phon e Number [address] POCT Glucose (07/12/2017 4:02 PM EST) athologist Signature POC Glucose 114 65 - 199 [place] mg/dL [facility] LABORATORY [...] Address City/State/ZIP Code Phon e Number [address] POCT Glucose (07/12/2017 11:28 AM EST) P athologist Signature POC Glucose 164 65 - 199 [place]HAORY[place] mg/dL [facility] LABORATORY [...] Address City/State/ZIP Code Phon e Number [address] POCT Glucose (07/12/2017 7:34 AM EST) athologist Signature POC Glucose 109 65 - 199 [facility] mg/dL [facility] LABORATORY [...] Organization Address City/State/[place] [address] (ABNORMAL) Basic Metabolic Panel (non-fasting) (07/12/2017 4:11 AM EST) athologist Signature Glucose Lvl 92 65 - 199 [facility] LAB[facility]ATORY Comment: Diabetes: >=200 mg/dL plus symp toms BUN 31 (H) 10 - 20 mg/dL [facility] LABORATORY Creatinine 1.23 0.80 - 1.50 mg/dL [facility] LABORATORY Sodium 145 135 - 145 mmol/L [facility] LABORATORY Potassium Not Perf 3.5 - 5.0 mmol/L [facility] LABORATORY Comment: Duplicate order Please note: ??Patients with WBC >100,00 0 may have falsely elevated Potassium levels. ??For accurate Potassium quantif ication in these patients send serum separator tube (gold top) for subsequent determinations. ??Contact the Clinical Chemistry Laboratory if there are any qu estions. Chloride 106 98 - 107 mmol/L [facility] LABORATORY CO2 Not Perf 22 - 31 mmol/L [facility] LAB[facility] Comment: Add-on request. Sample too old to perform test. Anion Gap Not Calculated 5 - 15 mmol/L [facility] LABORATORY Calcium 8.1 (L) 8.5 - 10.5 mg/dL [facility] LABORATORY Estimated GFR 58 (L) >=60 [facility] LABORATORY Comment: The reported eGFR should be multiplied b y 1.2 for patients. The MDRD is not an appropriate measure o f renal function for patients with body mass extremes or in patients with acute kidney failure. http://[employer]/DHnkdep http://[employer]/DHMCnkf Specimen Anatomical Collection Method Collection Time Receive d Time (Source) Location / / Volume Laterality Blood specimen 07/12/2017 4:11 AM 017 8:57 (specimen) EST AM EST Resulting Agency Comment Spec In Lab Makayla [place] STACIE CHEMISTRY ORDERABLES Performing Organization Address [facility] [place] [address] (ABNORMAL) Prothrombin Time (07/12/2017 4:11 AM EST) P athologist Signature PT 15.4 (H) 11.8 - 14.0 [facility] LABORATORY INR 1.2 (H) 0.9 - 1.1 [facility] [...] [place] STACIE HEMATOLOGY ORDERABLES Performing Organization Address [facility] Phon e Number [address] Potassium (07/12/2017 4:11 AM EST) P athologist Signature Potassium 3.8 3.5 - 5.0 [facility] mmol/L [facility] LABORATORY Comment: Please note: ??Patients [...] Wilson APRN CHEMISTRY ORDERABLES Performing Organization Address City/[facility]/ZIP [facility] Phon e Number [address] POCT Glucose (07/12/2017 4:10 AM EST) athologist Signature POC Glucose 90 65 - 199 [facility] LABORATORY Comment: Supplemental ranges: <140 mg/dL before meals <180 mg/dL all other times of the day Specimen Anatomical Collection Method Collection Time Receive d Time (Source) Location / / Volume Laterality Blood specimen 07/12/2017 4:10 AM 017 4:10 (specimen) EST AM EST Yuan Webber MD POINT OF CARE TEST ORDERABLE S Performing Organization Address City/[facility]/ZIP Code Phon e Number [address] POCT Glucose (07/11/2017 11:57 PM EST) athologist Signature POC Glucose 98 65 - 199 [facility] LABORATORY Comment: Supplemental ranges: <140 mg/dL before meals <180 mg/dL all other times of the day Specimen Anatomical Collection Method Collection Time Receive d Time (Source) Location / / Volume Laterality Blood specimen 07/11/2017 11:57 7 (specimen) PM EST 11:57 PM EST Yuan Webber MD POINT OF CARE TEST ORDERABLE S Performing Organization Address City/[facility]/ZIP Code Phon e Number [address] POCT Glucose (07/11/2017 8:32 PM EST) P athologist Signature POC Glucose 146 65 - 199 [place] mg/dL [facility] LABORATORY [...] City/State/[place] [address] XR Chest PA & [...] e xtubated, left chest tube removed, and Whitethorn-Suzi catheter removed since the study. Atelectasis at [...] e xtubated, left chest tube removed, and Whitethorn-Suzi catheter removed since the study. Atelectasis at [...] (H) 65 - 199 [place] mg/dL [facility] LABORATORY Comment: Supplemental ranges: <140 mg/dL before meals <180 mg/dL all other times of the day Specimen Anatomical Collection Method Collection Time Receive d Time (Source) Location / / Volume Laterality Blood specimen 07/11/2017 4:05 PM 017 4:05 (specimen) EST PM EST Yuan Webber MD POINT OF CARE TEST ORDERABLE S Performing Organization Address City/[facility]/ZIP Code Phon e Number [address] POCT Glucose (07/11/2017 11:55 AM EST) athologist Signature POC Glucose 176 65 - 199 [place] mg/dL [facility] LABORATORY [...] Organization Address City/State/[place] [address] POCT Glucose (07/11/2017 7:53 AM EST) athologist Signature POC Glucose 189 65 - 199 [place] mg/dL [facility] LABORATORY Comment: Supplemental ranges: <140 mg/dL before meals <180 mg/dL all other times of the day Specimen Anatomical Collection Method Collection Time Receive d Time (Source) Location / / Volume Laterality Blood specimen 07/11/2017 7:53 AM 017 7:53 (specimen) EST AM EST Yuan Webber MD POINT OF CARE TEST ORDERABLE S Performing Organization Address City/[facility]/ZIP Code Phon e Number [address] POCT Glucose (07/11/2017 4:22 AM EST) athologist Signature POC Glucose 151 65 - 199 [place]HA[place] mg/dL [facility] LABORATORY Comment: Supplemental ranges: <140 mg/dL before meals <180 mg/dL all other times of the day Specimen Anatomical Collection Method Collection Time Receive d Time (Source) Location / / Volume Laterality Blood specimen 07/11/2017 4:22 AM 017 4:22 (specimen) EST AM EST Yuan Webber MD POINT OF CARE TEST ORDERABLE S Performing Organization Address [facility]/[place] [address] Potassium (07/11/2017 2:20 AM EST) athologist Signature Potassium 4.5 3.5 - 5.0 [facility] mmol/L [facility] LABORATORY Comment: Please note: ??Patients [...] Webber MD CHEMISTRY ORDERABLES Performing Organization Address City/[facility]/ZIP Code Phon e Number [address] POCT Glucose (07/11/2017 12:17 AM EST) athologist Signature POC Glucose 162 65 - 199 [place] mg/dL [facility] LABORATORY [...] Address City/State/ZIP Code Phon e Number [address] POCT Glucose (07/10/2017 8:47 PM EST) athologist Signature POC Glucose 191 65 - 199 [place] mg/dL [facility] LABORATORY [...] Organization Address City/State/[place] [address] POCT Glucose (07/10/2017 4:06 PM EST) athologist Signature POC Glucose 131 65 - 199 [place] mg/dL [facility] LABORATORY [...] Address City/State/ZIP Code Phon e Number [address] POCT Glucose (07/10/2017 3:08 PM EST) athologist Signature POC Glucose 151 65 - 199 [facility] RYAN mg/dL [facility] LABORATORY [...] Address City/State/ZIP Code Phon e Number [address] POCT Glucose (07/10/2017 2:25 PM EST) athologist Signature POC Glucose 146 65 - 199 [place] ZHA[place] mg/dL [facility] LABORATORY [...] Organization Address City/State/[place] [address] POCT Glucose (07/10/2017 1:23 PM EST) athologist Signature POC Glucose 166 65 - 199 [place] ZHAORY[place] mg/dL [facility] LABORATORY [...] Organization Address City/State/[place] [address] POCT Glucose (07/10/2017 11:52 AM EST) athologist Signature POC Glucose 157 65 - 199 [facility] R[facility] mg/dL [facility] LABORATORY [...] Address City/State/ZIP Code Phon e Number [address] POCT Glucose (07/10/2017 11:01 AM EST) P athologist Signature POC Glucose 158 65 - 199 [place] ZHAORY[place] mg/dL [facility] LABORATORY Comment: Supplemental ranges: <140 mg/dL before meals <180 mg/dL all other times of the day Specimen Anatomical Collection Method Collection Time Receive d Time (Source) Location / / Volume Laterality Blood specimen 07/10/2017 11:01 7 (specimen) AM EST 11:01 AM EST Yuan Webber MD POINT OF CARE TEST ORDERABLE S Performing Organization Address City/[facility]/ZIP Code Phon e Number [address] POCT Glucose (07/10/2017 9:54 AM EST) P athologist Signature POC Glucose 160 65 - 199 [place] mg/dL [facility] LABORATORY [...] Address City/State/ZIP Code Phon e Number [address] POCT Glucose (07/10/2017 8:58 AM EST) P athologist Signature POC Glucose 183 65 - 199 [place] ZHA[place] mg/dL [facility] LABORATORY [...] Address City/State/ZIP Code Phon e Number [address] POCT Glucose (07/10/2017 8:01 AM EST) P athologist Signature POC Glucose 173 65 - 199 [place] ZHAORY[place] mg/dL [facility] LABORATORY [...] Address City/State/ZIP Code Phon e Number [address] POCT Glucose (07/10/2017 7:05 AM EST) athologist Signature POC Glucose 166 65 - 199 [place] ZHAORYAN mg/dL [facility] LABORATORY [...] Organization Address City/State/[place] [address] POCT Glucose (07/10/2017 6:00 AM EST) athologist Signature POC Glucose 162 65 - 199 [place] mg/dL [facility] LABORATORY [...] Organization Address City/State/ZIP Code Phon e Number [place] [id number] [facility] LABORATORY Drive (ABNORMAL) Differential, Automated (07/10/2017 4:28 AM EST) [employer] Method Time Signature Neutrophils % 87.9 % [facility] LABORATORY Neutr Abs (ANC) 10.70 (H) 1.70 - [facility] 6.10 [facility] x10(3)/[facility] LABORATORY Lymphocytes % 3.9 % [facility] LABORATORY Lymphocytes Abs 0.5 (L) 0.9 - 3.2 [facility] x10(3)/[facility] LABORATORY Monocytes % 7.0 % [facility] LABORATORY Monocyte Abs 0.8 0.3 - 0.9 [facility] x10(3)/[facility] LABORATORY Eosinophils % 0.3 % [facility] LABORATORY Eosinophils Abs 0.0 0.0 - 0.4 [facility] x10(3)/[facility] LABORATORY Basophils % 0.2 % [facility] LABORATORY Basophils Abs 0.0 0.0 - 0.1 [facility] x10(3)/[facility] LABORATORY Immature Gran [...] Webber MD HEMATOLOGY ORDERABLES Performing Organization Address City/[facility]/[place] [address] (ABNORMAL) Hemogram (07/10/2017 4:28 AM EST) Analysis Performed At Patho logist Time Signature WBC 12.2 (H) 4.0 - 9.5 [facility] x10(3)/[facility] LABORATORY RBC 3.31 (L) 4.58 - [place] ZHAORY[place] 5.54 [facility] x10(6)/[facility] LABORATORY Hemoglobin 9.8 (L) 13.7 - [facility] 16.5 gm/dL [facility] LABORATORY Hematocrit 30.0 (L) 40.5 - [facility] 48.5 % [facility] LABORATORY MCV 90.6 82.9 - [facility] 93.1 [facility] LABORATORY MCH 29.6 27.5 - [facility] 32.1 pg [facility] LABORATORY MCHC 32.7 32.0 - [facility] 35.7 gm/dL [facility] LABORATORY Platelets 135 (L) 145 - 357 [facility] x10(3)/[facility] LABORATORY RDWSD 50.8 (H) 36.0 - [facility] 45.0 [facility] LABORATORY RDWCV 15.4 (H) 11.4 - [facility] 13.8 % [facility] LABORATORY MPV 10.0 7.6 - 12.9 [facility] LABORATORY nRBC % Auto 0.0 % [facility] LABORATORY nRBC Abs Auto 0.000 0.000 - [facility] 0.000 [facility] x10(3)/[facility] LABORATORY Specimen Anatomical Collection Method Collection Time Receive d Time (Source) Location / / Volume Laterality Blood specimen 07/10/2017 4:28 AM 017 4:36 (specimen) EST AM EST Resulting Agency Comment Spec In Lab Yuan Webber MD HEMATOLOGY ORDERABLES Performing Organization Address City/State/ZIP Code Phon e Number [address] (ABNORMAL) Basic Metabolic Panel (non-fasting) (07/10/2017 4:28 AM EST) P athologist Signature Glucose Lvl 178 65 - 199 [facility] mg/dL [facility] LABORATORY [...] estions. Chloride 107 98 - 107 mmol/L [facility] LABORATORY CO2 21 (L) 22 - 31 mmol/L [facility] LABORATORY Anion Gap 15 5 - 15 mmol/L [facility] LABORATORY Calcium 7.4 (L) 8.5 - 10.5 mg/dL [facility] LABORATORY Estimated GFR 60 >=60 [facility] LABORATORY Comment: The reported eGFR should be multiplied b y 1.2 for patients. The MDRD is not an appropriate measure o f renal function for patients with body mass extremes or in patients with acute kidney failure. http://[employer]/DHnkdep http://[employer]/DHMCnkf Specimen Anatomical Collection Method Collection Time Receive d Time (Source) Location / / Volume Laterality Blood specimen 07/10/2017 4:28 AM 017 4:36 (specimen) EST AM EST Resulting Agency Comment Spec In Lab Yuan Webber MD CHEMISTRY ORDERABLES Performing Organization Address City/State/[place] [address] POCT Glucose (07/10/2017 4:26 AM EST) P athologist Signature POC Glucose 176 65 - 199 [facility] mg/dL [facility] LABORATORY [...] Address City/State/ZIP Code Phon e Number [address] (ABNORMAL) POCT Glucose (07/10/2017 3:06 AM EST) P athologist Signature POC Glucose 204 (H) 65 - 199 [facility] mg/dL [facility] LABORATORY Comment: Supplemental ranges: <140 mg/dL before meals <180 mg/dL all other times of the day Specimen Anatomical Collection Method Collection Time Receive d Time (Source) Location / / Volume Laterality Blood specimen 07/10/2017 3:06 AM 017 3:06 (specimen) EST AM EST Yuan Webber MD POINT OF CARE TEST ORDERABLE S Performing Organization Address City/[facility]/[place] [address] (ABNORMAL) POCT Glucose (07/10/2017 2:10 AM EST) P athologist Signature POC Glucose 203 (H) 65 - 199 [facility] mg/dL [facility] LABORATORY [...] Address City/State/ZIP Code Phon e Number [address] POCT Glucose (07/10/2017 1:09 AM EST) P athologist Signature POC Glucose 196 65 - 199 [facility] mg/dL [facility] LABORATORY [...] Address City/State/ZIP Code Phon e Number [address] POCT Glucose (07/10/2017 12:10 AM EST) P athologist Signature POC Glucose 173 65 - 199 [place] mg/dL [facility] LABORATORY [...] Organization Address City/State/[place] [address] POCT Glucose (07/09/2017 11:01 PM EST) P athologist Signature POC Glucose 140 65 - 199 [place]ATALINA RYAN mg/dL [facility] LABORATORY [...] Organization Address City/State/[place] [address] POCT Glucose (07/09/2017 10:05 PM EST) P athologist Signature POC Glucose 144 65 - 199 [facility] RYAN mg/dL [facility] LABORATORY [...] Address City/State/ZIP Code Phon e Number [address] POCT Glucose (07/09/2017 9:31 PM EST) athologist Signature POC Glucose 121 65 - 199 KATALINA ZHAORYAN mg/dL [facility] LABORATORY Comment: Supplemental ranges: <140 mg/dL before meals <180 mg/dL all other times of the day Specimen Anatomical Collection Method Collection Time Receive d Time (Source) Location / / Volume Laterality Blood specimen 07/09/2017 9:31 PM 017 9:31 (specimen) EST PM EST Yuan Webber MD POINT OF CARE TEST ORDERABLE S Performing Organization Address City/[facility]/ZIP Code Phon e Number [address] POCT Glucose (07/09/2017 9:03 PM EST) athologist Signature POC Glucose 98 65 - 199 [place] RYAN mg/dL [facility] LABORATORY Comment: Supplemental ranges: <140 mg/dL before meals <180 mg/dL all other times of the day Specimen Anatomical Collection Method Collection Time Receive d Time (Source) Location / / Volume Laterality Blood specimen 07/09/2017 9:03 PM 017 9:03 (specimen) EST PM EST Yuan Webber MD POINT OF CARE TEST ORDERABLE S Performing Organization Address City/[facility]/ZIP Code Phon e Number [address] POCT Glucose (07/09/2017 8:09 PM EST) athologist Signature POC Glucose 117 65 - 199 [place] RYAN mg/dL [facility] LABORATORY [...] Address City/State/ZIP Code Phon e Number [address] POCT Glucose (07/09/2017 5:40 PM EST) athologist Signature POC Glucose 155 65 - 199 [place] ZHAORYAN mg/dL [facility] LABORATORY [...] Address City/State/ZIP Code Phon e Number [address] POCT Glucose (07/09/2017 4:24 PM EST) athologist Signature POC Glucose 164 65 - 199 [place] RYAN mg/dL [facility] LABORATORY [...] Address City/State/ZIP Code Phon e Number [address] POCT Glucose (07/09/2017 3:19 PM EST) athologist Signature POC Glucose 166 65 - 199 [facility] RYAN mg/dL [facility] LABORATORY [...] Organization Address City/State/[place] [address] POCT Glucose (07/09/2017 2:26 PM EST) athologist Signature POC Glucose 179 65 - 199 KATALINA ZHAORYAN mg/dL [facility] LABORATORY Comment: Supplemental ranges: <140 mg/dL before meals <180 mg/dL all other times of the day Specimen Anatomical Collection Method Collection Time Receive d Time (Source) Location / / Volume Laterality Blood specimen 07/09/2017 2:26 PM 017 2:26 (specimen) EST PM EST Yuan Webber MD POINT OF CARE TEST ORDERABLE S Performing Organization Address City/[facility]/[place] [address] (ABNORMAL) POCT Glucose (07/09/2017 1:29 PM EST) athologist Signature POC Glucose 210 (H) 65 - 199 K[place]AL[place] RYAN mg/dL [facility] LABORATORY Comment: Supplemental ranges: <140 mg/dL before meals <180 mg/dL all other times of the day Specimen Anatomical Collection Method Collection Time Receive d Time (Source) Location / / Volume Laterality Blood specimen 07/09/2017 1:29 PM 017 1:29 (specimen) EST PM EST Yuan Webber MD POINT OF CARE TEST ORDERABLE S Performing Organization Address City/[facility]/[place] [address] POCT Glucose (07/09/2017 12:20 PM EST) athologist Signature POC Glucose 172 65 - 199 KATALINA ZHAORYAN mg/dL [facility] LABORATORY [...] Address City/State/ZIP Code Phon e Number [address] POCT Glucose (07/09/2017 11:24 AM EST) P athologist Signature POC Glucose 156 65 - 199 [place] VILLAREALCOCK mg/dL [facility] LABORATORY [...] Address City/State/ZIP Code Phon e Number [address] POCT Glucose (07/09/2017 11:11 AM EST) P athologist Signature POC Glucose 172 65 - 199 [place] VILLAREALCOCK mg/dL [facility] LABORATORY [...] City/State/[place] [address] [facility] [address] POCT Glucose (07/09/2017 10:08 AM EST) P athologist Signature POC Glucose 176 65 - 199 KATALINA ZHAORYAN mg/dL [facility] LABORATORY [...] e Number [facility] [place] [address] POCT Glucose (07/09/2017 8:02 AM EST) P athologist Signature POC Glucose 178 65 - 199 [facility] mg/dL [facility] LABORATORY [...] Organization Address City/State/[place] [address] (ABNORMAL) BLOOD GAS 2 ARTERIAL (07/09/2017 5:37 AM EST) Analysis Performed At Patho logist Time Signature pH Art 7.36 7.35 - [facility] 7.45 [facility] LABORATORY pCO2 Art 38 35 - 45 [facility] LABORATORY pO2 Art 79 (L) 85 - 104 [facility] LABORATORY HCO3 Art 20.9 20.0 - [facility] 26.0 [facility] mmol/L [facility] LABORATORY BE Art -4.6 (L) -3.0 - 3.0 [facility] mmol/L [facility] LABORATORY Hgb Blood Gas 10.5 (L) 13.7 - [facility] 16.5 gm/dL [facility] LABORATORY O2HB Art 93.8 (L) 94.0 - [facility] 97.0 % [facility] LABORATORY COHB Art 0.3 % [facility] LABORATORY Comment: Nonsmokers: 0.5-1.5% COHB Smokers: Variable, but usually less than 10% Toxic: 20-30% COHB Lethal: Greater than 60% COHB METHB Art 0.6 <=1.5 % [facility] LABORATORY Na Whole Blood 141 135 - 145 mmol/L [facility] LABORATORY K Whole Blood 4.5 3.5 - 5.0 mmol/L [facility] LABORATORY Comment: Please note: Patients with WBC >100,000 may have falsely elevated Potassium levels. Contact the Clinical Chemistry L aboratory if there are any questions. ICa Whole Blood 1.01 (L) 1.15 - 1.33 mmol/L [facility] FIO2 Art 40 % [facility] LABOR[facility] PF Ratio Art 198 [facility] LABORATORY Specimen Anatomical Collection Method Collection Time Receive d Time (Source) Location / / Volume Laterality Blood specimen 07/09/2017 5:37 AM 017 5:37 (specimen) EST AM EST Yuan Webber MD CHEMISTRY ORDERABLES Performing Organization Address City/[facility]/[place] [address] POCT Glucose (07/09/2017 3:27 AM EST) P athologist Signature POC Glucose 192 65 - 199 [facility] mg/dL [facility] LABOR[facility]ORY Comment: Supplemental ranges: <140 mg/dL before meals <180 mg/dL all other times of the day Specimen Anatomical Collection Method Collection Time Receive d Time (Source) Location / / Volume Laterality Blood specimen 07/09/2017 3:27 AM 017 3:27 (specimen) EST AM EST Yuan Webber MD POINT OF CARE TEST ORDERABLE S Performing Organization Address City/[facility]/[place] [address] (ABNORMAL) Basic Metabolic Panel (non-fasting) (07/09/2017 2:30 AM EST) P athologist Signature Glucose Lvl 179 65 - 199 [facility] mg/dL [facility] LABOR[facility]ORY Comment: Diabetes: >=200 mg/dL plus symp toms BUN 17 10 - 20 mg/dL [facility] LABORATORY Creatinine 1.34 0.80 - 1.50 mg/dL [facility] LABORATORY Sodium 144 135 - 145 mmol/L [facility] LABORATORY Potassium Not Perf 3.5 - 5.0 mmol/L [facility] LABORATORY Comment: Duplicate order Please note: ??Patients with WBC >100,00 0 may have falsely elevated Potassium levels. ??For accurate Potassium quantif ication in these patients send serum separator tube (gold top) for subsequent determinations. ??Contact the Clinical Chemistry Laboratory if there are any qu estions. Chloride 111 (H) 98 - 107 mmol/L [facility]OR[facility]ORY CO2 21 (L) 22 - 31 mmol/L [facility]OR[facility] Anion Gap 12 5 - 15 mmol/L [facility] Calcium 7.1 (L) 8.5 - 10.5 mg/dL [facility] LABORATORY Comment: result rechecked-JLK Estimated GFR 53 (L) >=60 [facility] LABORATORY Comment: The reported eGFR should be multiplied b y 1.2 for patients. The MDRD is not an appropriate measure o f renal function for patients with body mass extremes or in patients with acute kidney failure. http://[employer]/DHnkdep http://[employer]/DHMCnkf Specimen Anatomical Collection Method Collection Time Receive d Time (Source) Location / / Volume Laterality Blood specimen Venous Draw / 07/09/2017 2:30 AM 2016 2:42 (specimen) Unknown EST AM EST Resulting Agency Comment Spec In Lab Yuan Webber MD CHEMISTRY ORDERABLES Performing Organization Address City/State/[place] [address] (ABNORMAL) Potassium (07/09/2017 2:30 AM EST) P athologist Signature Potassium 5.1 (H) 3.5 - 5.0 [facility] mmol/L [facility] LABORATORY Comment: Please note: ??Patients [...] City/State/[place] [address] (ABNORMAL) Hemogram (07/09/2017 2:30 AM EST) Analysis Performed At Patho logist Time Signature WBC 12.5 (H) 4.0 - 9.5 [facility] x10(3)/[facility] LABORATORY RBC 3.38 (L) 4.58 - [facility] 5.54 [facility] x10(6)/[facility] LABORATORY Hemoglobin 10.1 (L) 13.7 - [facility] 16.5 gm/dL [facility] LABORATORY Hematocrit 30.3 (L) 40.5 - [facility] 48.5 % [facility] LABORATORY MCV 89.6 82.9 - [facility] 93.1 [facility] LABORATORY MCH 29.9 27.5 - [place] RYAN 32.1 pg [facility] LABORATORY MCHC 33.3 32.0 - [facility] 35.7 gm/dL [facility] LABORATORY Platelets 127 (L) 145 - 357 [facility] x10(3)/[facility] LABORATORY RDWSD 49.3 (H) 36.0 - [place] RYAN 45.0 [facility] LABORATORY RDWCV 15.2 (H) 11.4 - [facility] RYAN 13.8 % [facility] LABORATORY MPV 9.9 7.6 - 12.9 [facility] LABORATORY nRBC % Auto 0.0 % [facility] LABORATORY nRBC Abs Auto 0.000 0.000 - K[place] RYAN 0.000 [facility] x10(3)/[facility] LABORATORY Specimen Anatomical Collection Method Collection Time Receive d Time (Source) Location / / Volume Laterality Blood specimen 07/09/2017 2:30 AM 017 2:41 (specimen) EST AM EST Resulting Agency Comment Spec In Lab Yuan Webber MD HEMATOLOGY ORDERABLES Performing Organization Address City/[facility]/ZIP Code Phon e Number [address] POCT Glucose (07/09/2017 2:10 AM EST) P athologist Signature POC Glucose 169 65 - 199 KATALINA ZHAORYAN mg/dL [facility] LABORATORY Comment: Supplemental ranges: <140 mg/dL before meals <180 mg/dL all other times of the day Specimen Anatomical Collection Method Collection Time Receive d Time (Source) Location / / Volume Laterality Blood specimen 07/09/2017 2:10 AM 017 2:10 (specimen) EST AM EST Yuan Webber MD POINT OF CARE TEST ORDERABLE S Performing Organization Address City/[facility]/[place] [address] POCT Glucose (07/09/2017 1:01 AM EST) P athologist Signature POC Glucose 173 65 - 199 K[place]ALINA ZHAORYAN mg/dL [facility] LABORATORY Comment: Supplemental ranges: <140 mg/dL before meals <180 mg/dL all other times of the day Specimen Anatomical Collection Method Collection Time Receive d Time (Source) Location / / Volume Laterality Blood specimen 07/09/2017 1:01 AM 017 1:01 (specimen) EST AM EST Yuan Webebr MD POINT OF CARE TEST ORDERABLE S Performing Organization Address City/[facility]/ZIP Code Phon e Number [address] Blood culture (07/09/2017 12:40 AM EST) [facility] Method Time Signature Blood Culture No growth K[place]ALINA VILLAREALCOCK at 5 days. [facility] LABORATORY Specimen Anatomical Collection Method Collection Time Receive d Time (Source) Location / / Volume Laterality Blood specimen STRUCTURE OF RIGHT 07/09/2017 12:40 3:58 (specimen) UPPER LIMB / AM EST AM EST Unknown Resulting Agency Comment Spec In Lab Yuan Webber MD MICROBIOLOGY - BLOOD ORDERAB LES Performing Organization Address City/State/[place] [address] Blood culture (07/09/2017 12:30 AM EST) [facility] Method Time Signature Blood Culture No growth KATALINA DAVIS at 5 days. [facility] LABORATORY Specimen Anatomical Collection Method Collection Time Receive d Time (Source) Location / / Volume Laterality Blood specimen STRUCTURE OF LEFT 07/09/2017 12:30 1211/2016 3:59 (specimen) UPPER LIMB / AM EST AM EST Unknown Resulting Agency Comment Spec In Lab Yuan Webber MD MICROBIOLOGY - BLOOD ORDERAB LES Performing Organization Address City/[facility]/[place] [address] (ABNORMAL) Urinalysis Microscopic Exam (07/09/2017 12:05 AM EST) Analysis Performed At Patho logist Time Signature RBC UA 32 (H) 0 - 3 /HPF [facility] LABORATORY WBC UA 5 (H) 0 - 3 /HPF [facility] LABORATORY Squam Epith UA <1 <=4 /HPF [facility] LABORATORY Hyaline Cast 17 (H) 0 - 2 /LPF [facility] LABORATORY Gran Cast UA 1 (H) <=0 /LPF [facility] LABORATORY Uric Ac Bianca Rare (A) [...] Organization Address City/State/[place] [address] (ABNORMAL) Urinalysis with reflex Culture (07/09/2017 12:05 AM EST) [facility] Method Time Signature Glucose UA Negative Negative KATALINA DAVIS mg/dL [facility] LABORATORY Protein UA 30 (A) Negative [facility]ORY Bilirubin UA Negative Negative [facility] mg/dL [facility] LAB[facility]ORY Comment: Clinical correlation required for positi ve Urine Bilirubin results as false positive may occur with some drugs and d rug related products. If a false positive is suspected a serum total bili yeager should be considered if clinically indicated. Urobilinogen UA Normal Normal mg/dL [facility] LABORATORY pH UA 5.0 5.0 - 8.0 [facility] LABORATORY Blood UA Moderate (A) Negative mg/dL [facility] LABORATORY Ketones UA Negative Negative mg/dL [facility] LABOR[facility]ORY Nitrite UA Negative Negative [facility] LABORATORY Leukocytes UA Negative Negative [facility] LABORATORY Appearance UA Hazy (A) Clear [facility] LABORATORY Spec Galva UA 1.025 1.002 - 1.030 [facility] LABORATORY Color UA Yellow Yellow [facility] LABORATORY Culture Reflexed No [facility] LABORATORY Specimen (Source) Anatomical Collection Method Collection Time Re ceived Time Location / / Volume Laterality Urine specimen 07/09/2017 12:05 7 obtained via AM EST 12:39 AM EST indwelling urinary catheter (specimen) Resulting Agency Comment Spec In Lab Yuan Webber MD URINE ORDERABLES Performing Organization Address City/[facility]/[place] [address] POCT Glucose (07/08/2017 11:01 PM EST) P athologist Signature POC Glucose 191 65 - 199 [facility] mg/dL [facility] LABORATORY [...] e [place] [facility] [place] [address] POCT Glucose (07/08/2017 10:04 PM EST) athologist Signature POC Glucose 198 65 - 199 [facility] mg/dL [facility] LABORATORY [...] Address City/State/ZIP Code Phon e Number [address] Prepare Albumin 5% in 250 mL (07/08/2017 8:49 PM EST) athologist Signature Dispensed? Yes [facility] LABORATORY Specimen Anatomical Collection Method Collection Time Receive d Time (Source) Location / / Volume Laterality Blood specimen No Charge / 07/08/2017 8:49 PM 017 8:51 (specimen) Unknown EST PM EST Resulting Agency Comment Spec In Lab [facility] ORDERABLES Performing Organization Address City/State/ZIP Code Phon e Number [address] POCT Glucose (07/08/2017 8:28 PM EST) athologist Signature POC Glucose 195 65 - 199 KATALINA RYAN mg/dL [facility] LABORATORY [...] Organization Address City/State/[place] [address] (ABNORMAL) POCT Glucose (07/08/2017 7:13 PM EST) P athologist Signature POC Glucose 220 (H) 65 - 199 [facility] mg/dL [facility] LABORATORY [...] Address City/State/ZIP Code Phon e Number [address] POCT Glucose (07/08/2017 5:04 PM EST) athologist Signature POC Glucose 147 65 - 199 [facility] mg/dL [facility] LABORATORY [...] Organization Address City/State/[place] [address] (ABNORMAL) BLOOD GAS 2 ARTERIAL (07/08/2017 4:13 PM EST) Analysis Performed At Patho logist Time Signature pH Art 7.38 7.35 - [facility] 7.45 [facility] LABORATORY pCO2 Art 36 35 - 45 [facility] LABORATORY pO2 Art 91 85 - 104 [facility] LABORATORY HCO3 Art 20.9 20.0 - [facility] 26.0 [facility] mmol/L [facility] LABORATORY BE Art -4.2 (L) -3.0 - 3.0 [facility] mmol/L [facility] LABORATORY Hgb Blood Gas 11.7 (L) 13.7 - [facility] 16.5 gm/dL [facility] LABORATORY O2HB Art 95.1 94.0 - [facility] 97.0 % [facility] LABORATORY COHB Art 0.6 % [facility] LABORATORY Comment: Nonsmokers: 0.5-1.5% COHB Smokers: Variable, but usually less than 10% Toxic: 20-30% COHB Lethal: Greater than 60% COHB METHB Art 0.6 <=1.5 % [facility] LABORATORY Na Whole Blood 139 135 - 145 mmol/L [facility] LABORATORY K Whole Blood 4.2 3.5 - 5.0 mmol/L [facility] LABORATORY Comment: Please note: Patients with WBC >100,000 may have falsely elevated Potassium levels. Contact the Clinical Chemistry L aboratory if there are any questions. ICa Whole Blood 1.05 (L) 1.15 - 1.33 mmol/L [facility] FIO2 Art 40 % [facility] LABOR[facility] PF Ratio Art 228 [facility] LABORATORY Specimen Anatomical Collection Method Collection Time Receive d Time (Source) Location / / Volume Laterality Blood specimen 07/08/2017 4:13 PM 017 4:13 (specimen) EST PM EST Yuan Webber MD CHEMISTRY ORDERABLES Performing Organization Address City/State/[place] [address] POCT Glucose (07/08/2017 4:01 PM EST) P athologist Signature POC Glucose 148 65 - 199 [facility] mg/dL [facility] LABORATORY [...] Address City/State/ZIP Code Phon e Number [address] POCT Glucose (07/08/2017 3:21 PM EST) athologist Signature POC Glucose 118 65 - 199 KATALINA ZHAORYAN mg/dL [facility] LABORATORY [...] Address City/State/ZIP Code Phon e Number [address] POCT Glucose (07/08/2017 2:01 PM EST) athologist Signature POC Glucose 129 65 - 199 KATALINA ZHAORYAN mg/dL [facility] LABORATORY [...] Organization Address City/State/[place] [address] POCT Glucose (07/08/2017 11:53 AM EST) athologist Signature POC Glucose 156 65 - 199 KATALINA ZHAORYAN mg/dL [facility] LABORATORY [...] Address City/State/ZIP Code Phon e Number [address] POCT Glucose (07/08/2017 11:04 AM EST) athologist Signature POC Glucose 181 65 - 199 [facility] mg/dL [facility] LABORATORY Comment: Supplemental ranges: <140 mg/dL before meals <180 mg/dL all other times of the day Specimen Anatomical Collection Method Collection Time Receive d Time (Source) Location / / Volume Laterality Blood specimen 07/08/2017 11:04 7 (specimen) AM EST 11:04 AM EST Yuan Webber MD POINT OF CARE TEST ORDERABLE S Performing Organization Address City/[facility]/[place] [address] (ABNORMAL) POCT Glucose (07/08/2017 9:24 AM EST) athologist Signature POC Glucose 203 (H) 65 - 199 [facility] mg/dL [facility] LABORATORY [...] Organization Address City/State/[place] [address] APTT (07/08/2017 8:40 AM EST) athologist Signature PTT 33 25 - 35 sec [facility] [...] Webber MD HEMATOLOGY ORDERABLES Performing Organization Address City/[facility]/[place] [address] (ABNORMAL) Prothrombin Time (07/08/2017 [...] Webber MD HEMATOLOGY ORDERABLES Performing Organization Address City/[facility]/[place] [address] (ABNORMAL) POCT Glucose (07/08/2017 7:38 AM EST) P athologist Signature POC Glucose 232 (H) 65 - 199 [facility] mg/dL [facility] LABORATORY Comment: Supplemental ranges: <140 mg/dL before meals <180 mg/dL all other times of the day Specimen Anatomical Collection Method Collection Time Receive d Time (Source) Location / / Volume Laterality Blood specimen 07/08/2017 7:38 AM 017 7:38 (specimen) EST AM EST Yuan Webber MD POINT OF CARE TEST ORDERABLE S Performing Organization Address City/[facility]/[place] [address] (ABNORMAL) POCT Glucose (07/08/2017 7:07 AM EST) athologist Signature POC Glucose 234 (H) 65 - 199 [facility] mg/dL [facility] LABORATORY [...] Organization Address City/State/[place] [address] (ABNORMAL) POCT Glucose (07/08/2017 6:04 AM EST) athologist Signature POC Glucose 225 (H) 65 - 199 [facility] mg/dL [facility] LABORATORY [...] Organization Address City/State/[place] [address] (ABNORMAL) POCT Glucose (07/08/2017 5:31 AM EST) athologist Signature POC Glucose 216 (H) 65 - 199 [facility] mg/dL [facility] LABORATORY [...] Organization Address City/State/[place] [address] (ABNORMAL) POCT Glucose (07/08/2017 4:52 AM EST) P athologist Signature POC Glucose 257 (H) 65 - 199 [facility] mg/dL [facility] LABORATORY [...] City/State/[place] [address] (ABNORMAL) BLOOD GAS 2 ARTERIAL (07/08/2017 4:04 AM EST) Analysis Performed At Patho logist Time Signature pH Art 7.30 (L) 7.35 - [facility] 7.45 [facility] LABORATORY pCO2 Art 41 35 - 45 [facility] LABORATORY pO2 Art 83 (L) 85 - 104 [facility] LABORATORY HCO3 Art 19.6 (L) 20.0 - [facility] 26.0 [facility] mmol/[facility] LABORATORY BE Art -6.8 (L) -3.0 - 3.0 [facility] mmol/L [facility] LABORATORY Hgb Blood Gas 12.2 (L) 13.7 - [facility] 16.5 gm/dL [facility] LABORATORY O2HB Art 93.5 (L) 94.0 - [facility] 97.0 % [facility] LABORATORY COHB Art 0.4 % [facility] LABORATORY Comment: Nonsmokers: 0.5-1.5% COHB Smokers: Variable, but usually less than 10% Toxic: 20-30% COHB Lethal: Greater than 60% COHB METHB Art 0.8 <=1.5 % [facility] LABORATORY Na Whole Blood 138 135 - 145 mmol/L [facility] LABORATORY K Whole Blood 4.4 3.5 - 5.0 mmol/L [facility] LABORATORY Comment: Please note: Patients with WBC >100,000 may have falsely elevated Potassium levels. Contact the Clinical Chemistry L aboratory if there are any questions. ICa Whole Blood 1.05 (L) 1.15 - 1.33 mmol/L [facility] [...] by instrument adjuster. FIO2 Art 40 % [facility] LABORATORY PF Ratio Art 208 [facility] LABORATORY Specimen Anatomical Collection Method Collection Time Receive d Time (Source) Location / / Volume Laterality Blood specimen 07/08/2017 4:04 AM 017 4:04 (specimen) EST AM EST Daphne Shahid MD CHEMISTRY ORDERABLES Performing Organization Address City/[facility]/ZIP Code Phon e Number [address] Scan, Peripheral Blood (07/08/2017 4:00 AM EST) P athologist Signature Plat Estimate Normal [facility] LABORATORY RBC Morphology Normal [facility] LABORATORY Specimen Anatomical Collection Method Collection Time Receive d Time (Source) Location / / Volume Laterality Blood specimen 07/08/2017 4:00 AM 017 4:09 (specimen) EST AM EST Resulting Agency Comment Spec In Lab Yuan Webber MD HEMATOLOGY ORDERABLES Performing Organization Address City/State/ZIP Code Phon e Number [address] (ABNORMAL) Differential, Automated (07/08/2017 4:00 AM EST) Patholo gist Method Time Signature Neutrophils % 85.4 % [facility] LABORATORY Neutr Abs (ANC) 16.07 (H) 1.70 - [facility] 6.10 [facility] x10(3)/[facility] L LABORATORY Lymphocytes % 3.5 % [facility] LABORATORY Lymphocytes Abs 0.6 (L) 0.9 - 3.2 [facility] x10(3)/[facility] LABORATORY Monocytes % 10.4 % [facility] LABORATORY Monocyte Abs 2.0 (H) 0.3 - 0.9 [facility] x10(3)/[facility] LABORATORY Eosinophils % 0.0 % [facility] LABORATORY Eosinophils Abs 0.0 0.0 - 0.4 [facility] x10(3)/[facility] LABORATORY Basophils % 0.1 % [facility] LABORATORY Basophils Abs 0.0 0.0 - 0.1 [facility] x10(3)/[facility] LABORATORY Immature Gran [...] Gran Abs 0.12 (H) 0.00 - 0.04 x10(3)/[facility] LABORATORY Specimen Anatomical Collection Method Collection Time Receive d Time (Source) Location / / Volume Laterality Blood specimen 07/08/2017 4:00 AM 017 4:09 (specimen) EST AM EST Resulting Agency Comment Spec In Lab Yuan Webber MD HEMATOLOGY ORDERABLES Performing Organization Address City/State/[place] [address] (ABNORMAL) Hemogram (07/08/2017 4:00 AM EST) Analysis Performed At Patho logist Time Signature WBC 18.8 (H) 4.0 - 9.5 [facility] x10(3)/[facility] LABORATORY RBC 4.00 (L) 4.58 - [facility] 5.54 [facility] x10(6)/[facility] LABORATORY Hemoglobin 11.9 (L) 13.7 - [facility] 16.5 gm/dL [facility] LABORATORY Hematocrit 35.9 (L) 40.5 - [facility] 48.5 % [facility] LABORATORY MCV 89.8 82.9 - [facility] 93.1 [facility] LABORATORY MCH 29.8 27.5 - [facility] OL[facility] 32.1 pg [facility] LABORATORY MCHC 33.1 32.0 - [facility] 35.7 gm/dL [facility] LABORATORY Platelets 232 145 - 357 [facility] x10(3)/[facility] LABORATORY RDWSD 47.6 (H) 36.0 - [facility] 45.0 [facility] LABORATORY RDWCV 14.5 (H) 11.4 - [facility] 13.8 % [facility] LABORATORY MPV 9.5 7.6 - 12.9 [facility] LABORATORY nRBC % Auto 0.0 % [facility] LABORATORY nRBC Abs Auto 0.000 0.000 - [facility] 0.000 [facility] x10(3)/[facility] LABORATORY Specimen Anatomical Collection Method Collection Time Receive d Time (Source) Location / / Volume Laterality Blood specimen 07/08/2017 4:00 AM 017 4:09 (specimen) EST AM EST Resulting Agency Comment Spec In Lab Yuan Webber MD HEMATOLOGY ORDERABLES Performing Organization Address City/State/ZIP Code Phon e Number [place] [id number]OS[address]ORY Drive (ABNORMAL) Electrolytes panel (07/08/2017 4:00 AM EST) P athologist Signature Sodium 139 135 - 145 [facility] mmol/L [facility] LABORATORY Potassium 4.7 3.5 - 5.0 [facility] mmol/L [facility] LABORATORY Comment: result rechecked-JLK Please [...] CO2 21 (L) 22 - 31 mmol/L [facility] Anion Gap 14 5 - 15 mmol/L [facility] RY[facility] LABORATORY Specimen Anatomical Collection Method Collection Time Receive d Time (Source) Location / / Volume Laterality Blood specimen 07/08/2017 4:00 AM 017 4:10 (specimen) EST AM EST Resulting Agency Comment Spec In Lab Yuan Webber MD CHEMISTRY ORDERABLES Performing Organization Address City/State/[place] [address] (ABNORMAL) Cardiac Enzymes (LEB/CGP) (07/08/2017 4:00 AM EST) P athologist Signature Troponin-T 1.88 (H) 0.00 - [facility] 0.00 ng/mL [facility] LABORATORY Comment: The 99th percentile [...] additional sample may be indicated. Reference: Third Waite Definition of Myocardial Infarction. Journal of the [place] [employer] 2012;60:1581-98 CK, Total 413 (H) 0 - 200 unit/L [facility] LABORATORY Comment: result rechecked-JLK Specimen Anatomical Collection Method Collection Time Receive d Time (Source) Location / / Volume Laterality Blood specimen 07/08/2017 4:00 AM 017 4:09 (specimen) EST AM EST Resulting Agency Comment Spec In Lab Yuan Webber MD CHEMISTRY ORDERABLES Performing Organization Address City/State/ZIP Code Phon e Number [address] (ABNORMAL) Glucose, fasting (07/08/2017 4:00 AM EST) P athologist Signature Glucose 287 (H) 65 - 99 [facility] Fasting mg/dL [facility] LABORATORY Comment: ?Fasting* Glucose Interpretive [...] of Diabetes Mellitus, Position Statement from the [place] [employer]. ??Diabete s Care, Volume 33, Supplement 1, Jul 2009 Specimen Anatomical Collection Method Collection Time Receive d Time (Source) Location / / Volume Laterality Blood specimen 07/08/2017 4:00 AM 017 4:09 (specimen) EST AM EST Resulting Agency Comment Spec In Lab Yuan Webber MD CHEMISTRY ORDERABLES Performing Organization Address City/[facility]/[place] [address] (ABNORMAL) Creatinine (07/08/2017 4:00 AM EST) Analysis Performed At Patho logist Time Signature Creatinine 1.55 (H) 0.80 - [facility] 1.50 mg/dL [facility] LABORATORY Estimated GFR 44 (L) >=60 [facility] LABORATORY Comment: The reported eGFR should be multiplied b y 1.2 for patients. The MDRD is not an appropriate measure o f renal function for patients with body mass extremes or in patients with acute kidney failure. http://[employer]/DHadelitakdep http://[employer]/DHMCnkf Specimen Anatomical Collection Method Collection Time Receive d Time (Source) Location / / Volume Laterality Blood specimen 07/08/2017 4:00 AM 017 4:09 (specimen) EST AM EST Resulting Agency Comment Spec In Lab Yuan Webber MD CHEMISTRY ORDERABLES Performing Organization Address City/[facility]/ZIP Code Phon e Number [address] BUN (07/08/2017 4:00 AM EST) P athologist Signature BUN 16 10 - 20 [facility] mg/dL [facility] LABORATORY Specimen Anatomical Collection Method Collection Time Receive d Time (Source) Location / / Volume Laterality Blood specimen 07/08/2017 4:00 AM 017 4:09 (specimen) EST AM EST Resulting Agency Comment Spec In Lab Yuan Webber MD CHEMISTRY ORDERABLES Performing Organization Address City/[facility]/[place] [address] (ABNORMAL) POCT Glucose (07/08/2017 3:00 AM EST) athologist Signature POC Glucose 273 (H) 65 - 199 [facility] LAB[facility]ORY Comment: Supplemental ranges: <140 mg/dL before meals <180 mg/dL all other times of the day Specimen Anatomical Collection Method Collection Time Receive d Time (Source) Location / / Volume Laterality Blood specimen 07/08/2017 3:00 AM 017 3:00 (specimen) EST AM EST Daphne Shahid MD POINT OF CARE TEST ORDERABLE S Performing Organization Address City/[facility]/ZIP Code Phon e Number [address] (ABNORMAL) POCT Glucose (07/08/2017 1:57 AM EST) P athologist Signature POC Glucose 288 (H) 65 - 199 [facility] mg/dL [facility] LABORATORY Comment: Supplemental ranges: <140 mg/dL before meals <180 mg/dL all other times of the day Specimen Anatomical Collection Method Collection Time Receive d Time (Source) Location / / Volume Laterality Blood specimen 07/08/2017 1:57 AM 017 1:57 (specimen) EST AM EST Daphne Shahid MD POINT OF CARE TEST ORDERABLE S Performing Organization Address City/[facility]/[place] [address] (ABNORMAL) POCT Glucose (07/08/2017 1:01 AM EST) athologist Signature POC Glucose 315 (H) 65 - 199 [facility] mg/dL [facility] LABORATORY Comment: Supplemental ranges: <140 mg/dL before meals <180 mg/dL all other times of the day Specimen Anatomical Collection Method Collection Time Receive d Time (Source) Location / / Volume Laterality Blood specimen 07/08/2017 1:01 AM 017 1:01 (specimen) EST AM EST Daphne Shahid MD POINT OF CARE TEST ORDERABLE S Performing Organization Address City/[facility]/[place] [address] (ABNORMAL) BLOOD GAS 2 ARTERIAL (07/08/2017 12:09 AM EST) athologist Signature pH Art 7.26 7.35 - [facility] (Critical) 7.45 [facility] LABORATORY Comment: Noted by instrument adjuster. pCO2 Art 41 35 - 45 mmHg [facility] LABORATORY pO2 Art 96 85 - 104 mmHg [facility] LABORATORY HCO3 Art 17.7 (L) 20.0 - 26.0 mmol/L [facility] LABORATORY BE Art -9.4 (L) -3.0 - 3.0 mmol/L [facility] LABORATORY Hgb Blood Gas 12.4 (L) 13.7 - 16.5 gm/dL [facility] LABORATORY O2HB Art 94.7 94.0 - 97.0 % [facility] LABORATORY COHB Art 0.2 % [facility] LABORATORY Comment: Nonsmokers: 0.5-1.5% COHB Smokers: Variable, but usually less than 10% Toxic: 20-30% COHB Lethal: Greater than 60% COHB METHB Art 0.6 <=1.5 % [facility] LABORATORY Na Whole Blood 141 135 - 145 mmol/L [facility] LABORAT[facility] K Whole Blood 3.5 3.5 - 5.0 mmol/L [facility] LABOR[facility]ORY Comment: Please note: Patients with WBC >100,000 may have falsely elevated Potassium levels. Contact the Clinical Chemistry L aboratory if there are any questions. ICa Whole Blood 1.03 (L) 1.15 - 1.33 mmol/L [facility] [...] by instrument adjuster. FIO2 Art 40 % [facility] [...] City/State/[place] [address] (ABNORMAL) POCT Glucose (07/07/2017 10:56 PM EST) P athologist Signature POC Glucose 292 (H) 65 - 199 [facility] mg/dL [facility] LABORATORY [...] City/State/[place] [address] (ABNORMAL) BLOOD GAS 2 ARTERIAL (07/07/2017 10:04 PM EST) athologist Signature pH Art 7.22 7.35 - [facility] (Critical) 7.45 [facility] LABOR[facility]ORY Comment: Noted by instrument adjuster. pCO2 Art 42 35 - 45 mmHg [facility] LABORATORY pO2 Art 94 85 - 104 mmHg [facility] LABORATORY HCO3 Art 16.9 (L) 20.0 - 26.0 mmol/L [facility] LABORATORY BE Art -10.7 (L) -3.0 - 3.0 mmol/L [facility] LABORATORY Hgb Blood Gas 13.0 (L) 13.7 - 16.5 gm/dL [facility] LABORATORY O2HB Art 93.8 (L) 94.0 - 97.0 % [facility] COHB Art 0.7 % [facility] [...] Blood 1.07 (L) 1.15 - 1.33 mmol/L [facility] [...] by instrument adjuster. FIO2 Art 40 % [facility] LABORATORY PF Ratio Art 235 [facility] LABORATORY Specimen Anatomical Collection Method Collection Time Receive d Time (Source) Location / / Volume Laterality Blood specimen 07/07/2017 10:04 7 (specimen) PM EST 10:04 PM EST Daphne Shahid MD CHEMISTRY ORDERABLES Performing Organization Address City/[facility]/ZIP Code Phon e Number [address] (ABNORMAL) Hemoglobin (07/07/2017 10:00 PM EST) P athologist Signature Hemoglobin 12.8 (L) 13.7 - [facility] 16.5 gm/dL [facility] LABORATORY Specimen Anatomical Collection Method Collection Time Receive d Time (Source) Location / / Volume Laterality Blood specimen 07/07/2017 10:00 7 (specimen) PM EST 10:13 PM EST Resulting Agency Comment Spec In Lab Yuan Webber MD HEMATOLOGY ORDERABLES Performing Organization Address City/[facility]/[place] [address] (ABNORMAL) Potassium (07/07/2017 10:00 PM EST) P athologist Signature Potassium 3.4 (L) 3.5 - 5.0 [facility] mmol/L [facility] LABORATORY Comment: Please note: ??Patients [...] Organization Address City/State/[place] [address] (ABNORMAL) POCT Glucose (07/07/2017 8:49 PM EST) P athologist Signature POC Glucose 241 (H) 65 - 199 [facility] mg/dL [facility] LABORATORY Comment: Supplemental ranges: <140 mg/dL before meals <180 mg/dL all other times of the day Specimen Anatomical Collection Method Collection Time Receive d Time (Source) Location / / Volume Laterality Blood specimen 07/07/2017 8:49 PM 017 8:49 (specimen) EST PM EST Daphne Shahid MD POINT OF CARE TEST ORDERABLE S Performing Organization Address City/[facility]/[place] [address] Prepare Albumin 5% in 250 mL (07/07/2017 8:03 PM EST) athologist Signature Dispensed? Yes [facility] LABORATORY Specimen Anatomical Collection Method Collection Time Receive d Time (Source) Location / / Volume Laterality Blood specimen No Charge / 07/07/2017 8:03 PM 017 8:04 (specimen) Unknown EST PM EST Resulting Agency Comment Spec In Lab Michael BROWN BLOOD BANK ORDERABLES Performing Organization Address City/[facility]/[place] [address] EKG 12 Lead (07/07/2017 7:17 PM EST) Component Value Ref Range Test Analysis Performed Pathologis t Method Time At Signature Ventricular rate 75 BPM MUSE SYSTEM Atrial Rate 75 BPM MUSE SYSTEM P-R Interval 168 ms MUSE SYSTEM QRS Duration 104 ms MUSE SYSTEM Q-T Interval 462 ms MUSE SYSTEM QTC Calculated 515 ms MUSE SYSTEM (Bezet) Calculated P [place] 52 degrees MUSE SYSTEM Calculated R [place] -40 degrees MUSE SYSTEM Calculated T [place] 39 degrees MUSE SYSTEM INTERPRETATION Normal sinus [...] athologist Signature pH Art 7.21 7.35 - [facility] (Critical) 7.45 [facility] LABORATORY Comment: Noted by instrument adjuster. pCO2 Art 50 (H) 35 - 45 mmHg [facility] LABORATORY pO2 Art 238 (H) 85 - 104 mmHg [facility] LABORATORY HCO3 Art 19.8 (L) 20.0 - 26.0 mmol/L [facility] LABORATORY BE Art -8.1 (L) -3.0 - 3.0 mmol/L [facility] LABORATORY Hgb Blood Gas 12.8 (L) 13.7 - 16.5 gm/dL [facility] LABORATORY O2HB Art 97.5 (H) 94.0 - 97.0 % [facility]ORY COHB Art 0.5 % [facility] Comment: Noted by instrument adjuster. Please note: Patients with WBC >100,000 may have falsely elevated Potassium levels. Contact the Clinical Chemistry L aboratory if there are any questions. ICa Whole Blood 1.07 (L) 1.15 - 1.33 mmol/L [facility] [...] by instrument adjuster. FIO2 Art 100 % [facility] LABORATORY PF Ratio Art 238 [facility] LABORATORY Specimen Anatomical Collection Method Collection Time Receive d Time (Source) Location / / Volume Laterality Blood specimen 07/07/2017 6:57 PM 017 6:57 (specimen) EST PM EST Daphne Shahid MD CHEMISTRY ORDERABLES Performing Organization Address City/State/[place] [address] (ABNORMAL) BLOOD GAS 2 ARTERIAL (07/07/2017 5:31 PM EST) P athologist Signature pH Art 7.29 7.35 - [facility] (Critical) 7.45 [facility] LAB[facility]ORY Comment: Noted by instrument adjuster. pCO2 Art 48 (H) 35 - 45 mmHg [facility] LAB[facility]ATORY pO2 Art 137 (H) 85 - 104 mmHg [facility] LABORATORY HCO3 Art 22.4 20.0 - 26.0 mmol/L [facility] LABORATORY BE Art -4.3 (L) -3.0 - 3.0 mmol/L [facility] LABORATORY Hgb Blood Gas 10.0 (L) 13.7 - 16.5 gm/dL [facility] LABORATORY O2HB Art 97.3 (H) 94.0 - 97.0 % [facility] COHB Art 0.3 % [facility] [...] Blood 1.14 (L) 1.15 - 1.33 mmol/L [facility] [...] Shahid MD CHEMISTRY ORDERABLES Performing Organization Address City/[facility]/ZIP Code Phon e Number [address] Fibrinogen (07/07/2017 5:30 PM EST) P athologist Signature Fibrinogen 224 180 - 510 [facility] mg/dL [facility] LABORATORY Comment: Called by: JEET, [...] Perez MD HEMATOLOGY ORDERABLES Performing Organization Address City/[facility]/ZIP [facility] Phon e Number [address] APTT (07/07/2017 5:30 PM EST) P athologist Signature PTT 30 25 - 35 sec [facility] [...] Perez MD HEMATOLOGY ORDERABLES Performing Organization Address City/[facility] [place] [address] (ABNORMAL) Prothrombin Time (07/07/2017 [...] Perez MD HEMATOLOGY ORDERABLES Performing Organization Address City/[facility] [place] [address] (ABNORMAL) Hemogram (07/07/2017 5:30 PM EST) P athologist Signature WBC 19.6 (H) 4.0 - 9.5 [facility] x10(3)/[facility] LABORATORY RBC 3.08 (L) 4.58 - [facility] 5.54 [facility] x10(6)/[facility] LABORATORY Hemoglobin 9.2 (L) 13.7 - [facility] 16.5 gm/dL [facility] LABORATORY Hematocrit 28.0 (L) 40.5 - [facility] 48.5 % [facility] LABORATORY Comment: This result has been called to MONICA MORAN by DONALD GROSSMAN on 07 07 2017 at 1759, and has been read back. MCV 90.9 82.9 - 93.1 [facility] LABORATORY MCH 29.9 27.5 - 32.1 pg [facility] LABORATORY MCHC 32.9 32.0 - 35.7 gm/dL [facility] LABORATORY Platelets 155 145 - 357 x10(3)/[facility] LABORATORY RDWSD 46.5 (H) 36.0 - 45.0 [facility] LABORATORY RDWCV 14.1 (H) 11.4 - 13.8 % [facility] LABORATORY MPV 9.5 7.6 - 12.9 [facility] LABORATORY nRBC % Auto 0.0 % [facility] LABORATORY nRBC Abs Auto 0.000 0.000 - 0.000 x10(3)/[facility] LABORATORY Specimen Anatomical Collection Method Collection Time Receive d Time (Source) Location / / Volume Laterality Blood specimen 07/07/2017 5:30 PM 017 5:34 (specimen) EST PM EST Resulting Agency Comment Spec In Lab Yifan Perez MD HEMATOLOGY ORDERABLES Performing Organization Address City/State/[place] [address] Prepare Platelets, Apheresis (07/07/2017 5:00 PM EST) P athologist Signature Dispensed? Yes [facility] LABORATORY Specimen Anatomical Collection Method Collection Time Receive d Time (Source) Location / / Volume Laterality Blood specimen 07/07/2017 5:00 PM 017 4:58 (specimen) EST PM EST Daphne Shahid MD BLOOD BANK ORDERABLES Performing Organization Address City/State/[place] [address] Platelet count (07/07/2017 4:55 PM EST) P athologist Signature Platelets 177 145 - 357 [facility] x10(3)/[facility] LABORATORY Plat Immature 1.5 0.0 - 7.4 [facility] % % [facility] LABORATORY Comment: Limitation of the Immature Platelet Frac tion (IPF)-May be less reliable when the platelet count is less than 22a832/u L due to statistical imprecision. The IPF [...] in a decreased state of production. References: [employer] The Clinical Value of the Immature Platelet Fraction (IPF) in Cell Recovery Document Number 10-1143 12/2010 [employer] The Role of the Imm ature [...] City/State/[place] [address] (ABNORMAL) Hemoglobin and Hematocrit, blood (07/07/2017 4:55 PM EST) P athologist Signature Hemoglobin 9.1 (L) 13.7 - 16.5 [facility] gm/dL [facility] LABORATORY Comment: This result has been called to MALKA MORAN by DONALD GROSSMAN on 07 07 2017 at 1734, and has been read back. Hematocrit 26.6 (L) 40.5 - 48.5 % [facility] LABOR[facility]ORY Comment: This result has been [...] City/State/[place] [address] (ABNORMAL) BLOOD GAS 2 ARTERIAL (07/07/2017 4:38 PM EST) Analysis Performed At Patho logist Time Signature pH Art 7.37 7.35 - [facility] 7.45 [facility] LABORATORY pCO2 Art 44 35 - 45 [facility] mmHg [facility] LABORATORY pO2 Art 322 (H) 85 - 104 [facility] LABORATORY HCO3 Art 24.9 20.0 - [facility] 26.0 [facility] mmol/L [facility] LABORATORY BE Art -0.4 -3.0 - 3.0 [facility] mmol/L [facility] LABORATORY Hgb Blood Gas 10.1 (L) 13.7 - [facility] 16.5 gm/dL [facility] O2HB Art 98.7 (H) 94.0 - [facility] 97.0 % [facility] COHB Art 0.1 % [facility] Comment: [...] Blood 0.89 (Critical) 1.15 - 1.33 mmol/L [facility] Comment: Noted by instrument adjuster. [...] City/State/[place] [address] (ABNORMAL) BLOOD GAS 2 VENOUS (07/07/2017 4:06 PM EST) Analysis Performed At Patho logist Time Signature pH Cody 7.31 (L) 7.32 - [facility] 7.42 [facility] pCO2 Cody 47 41 - 51 [facility]ATORY pO2 Cody 53 (H) 25 - 40 [facility]ORY HCO3 Cody 22.7 mmol/L [facility] BE Cody -3.7 mmol/L [facility] Hgb Blood Gas 10.2 (L) 13.7 - [facility] 16.5 gm/dL [facility] O2HB Cody 81.0 % [facility] COHB Cody 1.0 % [facility] Comment: [...] Blood 0.90 (Critical) 1.15 - 1.33 mmol/L [facility] Comment: Noted by instrument adjuster. [...] City/State/[place] [address] (ABNORMAL) BLOOD GAS 2 ARTERIAL (07/07/2017 4:05 PM EST) Analysis Performed At Patho logist Time Signature pH Art 7.36 7.35 - [facility] 7.45 [facility] pCO2 Art 40 35 - 45 [facility] mmHg [facility] pO2 Art 282 (H) 85 - 104 [facility]ORY HCO3 Art 22.1 20.0 - [facility] 26.0 [facility] mmol/L [facility] BE Art -3.4 (L) -3.0 - 3.0 [facility] mmol/L [facility] Hgb Blood Gas 10.2 (L) 13.7 - [facility] 16.5 gm/dL [facility] O2HB Art 98.4 (H) 94.0 - [facility] 97.0 % [facility] COHB Art 0.3 % [...] Blood 0.86 (Critical) 1.15 - 1.33 mmol/L [facility] Comment: Noted by instrument adjuster. [...] City/State/[place] [address] (ABNORMAL) BLOOD GAS 2 ARTERIAL (07/07/2017 2:29 PM EST) Analysis Performed At Patho logist Time Signature pH Art 7.43 7.35 - [facility] 7.45 [facility] pCO2 Art 36 35 - 45 [facility]ORY pO2 Art 221 (H) 85 - 104 [facility] HCO3 Art 23.2 20.0 - [facility] 26.0 [facility] mmol/[facility] BE Art -1.2 -3.0 - 3.0 [facility] mmol/L [facility] Hgb Blood Gas 13.9 13.7 - [facility] 16.5 gm/dL [facility] O2HB Art 97.8 (H) 94.0 - [facility] 97.0 % [facility] COHB Art 1.1 % [facility] Comment: Nonsmokers: 0.5-1.5% COHB Smokers: Variable, but usually less than 10% Toxic: 20-30% COHB Lethal: Greater than 60% COHB METHB Art 0.3 <=1.5 % [facility] Na Whole Blood 139 135 - 145 mmol/L [facility] K Whole Blood 4.0 3.5 - 5.0 mmol/L [facility] Comment: Please note: Patients with WBC >100,000 may have falsely elevated Potassium levels. Contact the Clinical Chemistry L aboratory if there are any questions. ICa Whole Blood 1.11 (L) 1.15 - 1.33 mmol/L [facility] Comment: Note: ??Total bilirubin higher than 20 m g/dL may lead to falsely low ionized calcium. CL Whole Blood 104 98 - 107 mmol/L [facility] Gluc Whole Bld 184 65 [...] City/State/[place] [address] Prepare Coag Factors (Non-Hemophilia) (07/07/2017 1:25 PM EST) P athologist Signature Dispensed? Yes [facility] Specimen Anatomical Collection Method Collection Time Receive d Time (Source) Location / / Volume Laterality Blood specimen 07/07/2017 1:25 PM 017 1:21 (specimen) EST PM EST Daphne Shahid MD BLOOD BANK ORDERABLES Performing Organization Address City/State/ZIP Code Phon e Number [address] Prepare RBC (07/07/2017 1:10 PM EST) P athologist Signature Dispensed? Yes [facility] Specimen Anatomical Collection Method Collection Time Receive d Time (Source) Location / / Volume Laterality Blood specimen 07/07/2017 1:10 PM 017 1:05 (specimen) EST PM EST Daphne Shahid MD BLOOD BANK ORDERABLES Performing Organization Address City/State/[place] [address] POCT Glucose (07/07/2017 11:56 AM EST) P athologist Signature POC Glucose 188 65 - 199 [facility] Comment: Supplemental ranges: <140 mg/dL before meals <180 mg/dL all other times of the day Specimen Anatomical Collection Method Collection Time Receive d Time (Source) Location / / Volume Laterality Blood specimen 07/07/2017 11:56 7 (specimen) AM EST 11:56 AM EST Daphne Shahid MD POINT OF CARE TEST ORDERABLE S Performing Organization Address City/[facility]/[place] [address] POCT Glucose (07/07/2017 11:05 AM EST) P athologist Signature POC Glucose 168 65 - 199 [facility] mg/dL [facility]ORY [...] Organization Address City/State/[place] [address] POCT Glucose (07/07/2017 10:02 AM EST) athologist Signature POC Glucose 191 65 - 199 [facility] mg/dL [facility] LABORATORY [...] Address City/State/ZIP Code Phon e Number [address] POCT Glucose (07/07/2017 7:53 AM EST) athologist Signature POC Glucose 178 65 - 199 [facility] RYAN mg/dL [facility] LABORATORY [...] Organization Address City/State/[place] [address] POCT Glucose (07/07/2017 7:03 AM EST) athologist Signature POC Glucose 188 65 - 199 [facility] mg/dL [facility] LABORATORY [...] Organization Address City/State/[place] [address] (ABNORMAL) POCT Glucose (07/07/2017 6:17 AM EST) athologist Signature POC Glucose 207 (H) 65 - 199 [facility] mg/dL [facility] LABORATORY [...] Organization Address City/State/ZIP Code Phon e Number [place] [id number]OSP[address] LAB[address] Differential, Automated (07/07/2017 5:15 AM EST) [facility] Neutrophils % 69.7 % [facility] Neutr Abs (ANC) 5.32 1.70 - [facility] 6.10 [facility] x10(3)/[facility] LABORATORY Lymphocytes % 16.3 % [facility] Lymphocytes Abs 1.2 0.9 - 3.2 [facility] x10(3)/[facility] LABORATORY Monocytes % 10.5 % [facility] Monocyte Abs 0.8 0.3 - 0.9 [facility] x10(3)[facility] LABORATORY Eosinophils % 2.5 % [facility] Eosinophils Abs 0.2 0.0 - 0.4 [facility] x10(3)/[facility] LABORATORY Basophils % 0.7 % [facility] Basophils Abs 0.0 0.0 - 0.1 [facility] x10(3)/[facility] LABORATORY Immature [...] Melisa Gran Abs 0.02 0.00 - 0.04 x10(3)/[facility] MAR Y [facility] LABORATORY Specimen Anatomical Collection Method Collection Time Receive d Time (Source) Location / / Volume Laterality Blood specimen 07/07/2017 5:15 AM 017 5:34 (specimen) EST AM EST Resulting Agency Comment Spec In Lab Daphne Shahid MD HEMATOLOGY ORDERABLES Performing Organization Address City/[facility]/[place] [address] (ABNORMAL) Hemogram (07/07/2017 5:15 AM EST) Analysis Performed At Patho logist Time Signature WBC 7.6 4.0 - 9.5 [facility] x10(3)/[facility] LABORATORY RBC 4.82 4.58 - [facility] 5.54 [facility] x10(6)/[facility] LABORATORY Hemoglobin 14.4 13.7 - [facility] 16.5 gm/dL [facility] Hematocrit 42.1 40.5 - [facility] 48.5 % [facility] MCV 87.3 82.9 - [facility] 93.1 [facility] LABORATORY MCH 29.9 27.5 - [facility] 32.1 pg [facility] MCHC 34.2 32.0 - [facility] 35.7 gm/dL [facility] Platelets 188 145 - 357 [facility] x10(3)/[facility] LABORATORY RDWSD 45.1 (H) 36.0 - [facility] 45.0 [facility] LABORATORY RDWCV 14.3 (H) 11.4 - [facility] 13.8 % [facility]ORY MPV 9.4 7.6 - 12.9 [facility] LABORATORY nRBC % Auto 0.0 % [facility] nRBC Abs Auto 0.000 0.000 - [facility] 0.000 [facility] x10(3)/[facility] LABORATORY Specimen Anatomical Collection Method Collection Time Receive d Time (Source) Location / / Volume Laterality Blood specimen 07/07/2017 5:15 AM 017 5:34 (specimen) EST AM EST Resulting Agency Comment Spec In Lab Daphne Shahid MD HEMATOLOGY ORDERABLES Performing Organization Address City/State/[place] [address] (ABNORMAL) APTT (07/07/2017 5:15 AM EST) athologist Signature PTT 69 (H) 25 - 35 sec [facility] Shahid MD HEMATOLOGY ORDERABLES Performing Organization Address City/[facility]/[place] [address] Magnesium (07/07/2017 5:15 AM EST) athologist Signature Magnesium 0.94 0.69 - 1.07 [facility] mmol/L [facility] Specimen Anatomical Collection Method Collection Time Receive d Time (Source) Location / / Volume Laterality Blood specimen 07/07/2017 5:15 AM 017 5:34 (specimen) EST AM EST Resulting Agency Comment Spec In Lab Daphne Shahid MD CHEMISTRY ORDERABLES Performing Organization Address City/[facility]/[place] [address] (ABNORMAL) Basic Metabolic Panel (non-fasting) (07/07/2017 5:15 AM EST) P athologist Signature Glucose Lvl 203 (H) 65 - 199 [facility] mg/dL [facility] Comment: Diabetes: >=200 mg/dL plus symp toms BUN 15 10 - 20 mg/dL [facility] Creatinine 1.09 0.80 - 1.50 mg/dL [facility] LAB[facility] Sodium 142 135 - 145 mmol/L [facility] Potassium 4.4 3.5 - 5.0 mmol/L [facility] Estimated GFR >60 >=60 [facility] Comment: The reported eGFR should be multiplied b y 1.2 for patients. The MDRD is not an appropriate measure o f renal function for patients with body mass extremes or in patients with acute kidney failure. http://[employer]/DHnkdep http://[employer]/DHMCnkf Specimen Anatomical Collection Method Collection Time Receive d Time (Source) Location / / Volume Laterality Blood specimen 07/07/2017 5:15 AM 017 5:34 (specimen) EST AM EST Resulting Agency Comment Spec In Lab Daphne Shahid MD CHEMISTRY ORDERABLES Performing Organization Address City/State/[place] [address] (ABNORMAL) Cardiac Enzymes (LEB/CGP) (07/07/2017 5:15 AM EST) P athologist Signature Troponin-T 2.07 (H) 0.00 - [facility] 0.00 ng/mL [facility] Comment: The 99th percentile [...] for cTnT testing should be obtai pedro ulis serially upon first assessment and again 3 to 6 hours later. If the clinica l suspicion is high and previous samples have been negative an additional sample may be indicated. Reference: Third Waite Definition of Myocardial Infarction. Journal of the [place] [employer] 2012;60:1581-98 CK, Total 88 0 - 200 unit/L [facility] Specimen Anatomical Collection Method Collection Time Receive d Time (Source) Location / / Volume Laterality Blood specimen 07/07/2017 5:15 AM 017 5:34 (specimen) EST AM EST Resulting Agency Comment Spec In Lab Daphne Shahid MD CHEMISTRY ORDERABLES Performing Organization Address City/[facility]/ZIP Code Phon e Number [address] POCT Glucose (07/07/2017 5:01 AM EST) athologist Signature POC Glucose 182 65 - 199 [facility] mg/dL [facility] Comment: Supplemental ranges: <140 mg/dL before meals <180 mg/dL all other times of the day Specimen Anatomical Collection Method Collection Time Receive d Time (Source) Location / / Volume Laterality Blood specimen 07/07/2017 5:01 AM 017 5:01 (specimen) EST AM EST Daphne Shahid MD POINT OF CARE TEST ORDERABLE S Performing Organization Address City/[facility]/ZIP [facility] Phon e Number [address] POCT Glucose (07/07/2017 4:08 AM EST) athologist Signature POC Glucose 199 65 - 199 [facility] mg/dL [facility] LABORATORY [...] Address City/State/ZIP Code Phon e Number [address] POCT Glucose (07/07/2017 3:03 AM EST) athologist Signature POC Glucose 188 65 - 199 [facility] mg/dL [facility] LABORATORY [...] Organization Address City/State/[place] [address] (ABNORMAL) POCT Glucose (07/07/2017 2:08 AM EST) athologist Signature POC Glucose 200 (H) 65 - 199 [place] mg/dL [facility] LABORATORY [...] Address City/State/ZIP Code Phon e Number [address] (ABNORMAL) POCT Glucose (07/07/2017 1:31 AM EST) athologist Signature POC Glucose 209 (H) 65 - 199 [place] mg/dL [facility] LABORATORY [...] City/State/[place] [address] XR Chest PA or [...] 161 65 - 199 [facility] mg/dL [facility] LABORATORY [...] Organization Address City/State/[place] [address] (ABNORMAL) APTT (07/07/2017 12:00 AM EST) athologist Signature PTT 103 (H) 25 - 35 sec [facility] Shahid MD HEMATOLOGY ORDERABLES Performing Organization Address City/[facility]/[place] [address] POCT Glucose (07/06/2017 9:55 PM EST) athologist Signature POC Glucose 109 65 - 199 [facility] mg/dL [facility] Comment: Supplemental ranges: <140 mg/dL before meals <180 mg/dL all other times of the day Specimen Anatomical Collection Method Collection Time Receive d Time (Source) Location / / Volume Laterality Blood specimen 07/06/2017 9:55 PM 017 9:55 (specimen) EST PM EST Daphne Shahid MD POINT OF CARE TEST ORDERABLE S Performing Organization Address City/[facility]/[place] [address] POCT Glucose (07/06/2017 9:04 PM EST) athologist Signature POC Glucose 120 65 - 199 [facility] mg/dL [facility] Comment: Supplemental ranges: <140 mg/dL before meals <180 mg/dL all other times of the day Specimen Anatomical Collection Method Collection Time Receive d Time (Source) Location / / Volume Laterality Blood specimen 07/06/2017 9:04 PM 017 9:04 (specimen) EST PM EST Daphne Shahid MD POINT OF CARE TEST ORDERABLE S Performing Organization Address City/[facility]/[place] [address] POCT Glucose (07/06/2017 7:45 PM EST) athologist Signature POC Glucose 158 65 - 199 [facility] mg/dL [facility] Comment: Supplemental ranges: <140 mg/dL before meals <180 mg/dL all other times of the day Specimen Anatomical Collection Method Collection Time Receive d Time (Source) Location / / Volume Laterality Blood specimen 07/06/2017 7:45 PM 017 7:45 (specimen) EST PM EST Daphne Shahid MD POINT OF CARE TEST ORDERABLE S Performing Organization Address City/[facility]/[place] [address] Potassium (07/06/2017 7:40 PM EST) athologist Signature Potassium 3.9 3.5 - 5.0 [facility] mmol/L [facility] Comment: Please note: ??Patients [...] Shahid MD CHEMISTRY ORDERABLES Performing Organization Address City/[facility]/[place] [address] (ABNORMAL) Cardiac Enzymes (LEB/CGP) (07/06/2017 7:40 PM EST) athologist Signature Troponin-T 2.27 (H) 0.00 - [facility] 0.00 ng/mL [facility] Comment: The 99th percentile [...] additional sample may be indicated. Reference: Third Waite Definition of Myocardial Infarction. Journal of the [place] College [employer]iology 2012;60:1581-98 CK, Total 93 0 - 200 unit/L [facility] Specimen Anatomical Collection Method Collection Time Receive d Time (Source) Location / / Volume Laterality Blood specimen 07/06/2017 7:40 PM 017 7:52 (specimen) EST PM EST Resulting Agency Comment Spec In Lab Daphne Shahid MD CHEMISTRY ORDERABLES Performing Organization Address City/State/[place] [address] (ABNORMAL) POCT Glucose (07/06/2017 7:13 PM EST) athologist Signature POC Glucose 200 (H) 65 - 199 [facility] mg/dL [facility] Comment: Supplemental ranges: <140 mg/dL before meals <180 mg/dL all other times of the day Specimen Anatomical Collection Method Collection Time Receive d Time (Source) Location / / Volume Laterality Blood specimen 07/06/2017 7:13 PM 017 7:13 (specimen) EST PM EST Daphne Shahid MD POINT OF CARE TEST ORDERABLE S Performing Organization Address City/[facility]/[place] [address] (ABNORMAL) APTT (07/06/2017 6:15 PM EST) athologist Signature PTT 94 (H) 25 - 35 sec [facility] Shahid MD HEMATOLOGY ORDERABLES Performing Organization Address City/[facility]/[place] [address] (ABNORMAL) POCT Glucose (07/06/2017 6:03 PM EST) athologist Signature POC Glucose 236 (H) 65 - 199 [facility] mg/dL [facility] Comment: Supplemental ranges: <140 mg/dL before meals <180 mg/dL all other times of the day Specimen Anatomical Collection Method Collection Time Receive d Time (Source) Location / / Volume Laterality Blood specimen 07/06/2017 6:03 PM 017 6:03 (specimen) EST PM EST Daphne Shahid MD POINT OF CARE TEST ORDERABLE S Performing Organization Address City/[facility]/[place] [address] (ABNORMAL) POCT Glucose (07/06/2017 5:01 PM EST) athologist Signature POC Glucose 235 (H) 65 - 199 [facility] mg/dL [facility] LABORATORY [...] Organization Address City/State/[place] [address] (ABNORMAL) POCT Glucose (07/06/2017 4:06 PM EST) athologist Signature POC Glucose 202 (H) 65 - 199 [place] [facility] mg/dL [facility] LABORATORY [...] Organization Address City/State/[place] [address] POCT Glucose (07/06/2017 2:59 PM EST) athologist Signature POC Glucose 178 65 - 199 [place] mg/dL [facility] LABORATORY [...] Organization Address City/State/[place] [address] (ABNORMAL) Cardiac Enzymes (LEB/CGP) (07/06/2017 2:10 PM EST) athologist Signature Troponin-T 2.34 (H) 0.00 - [facility] 0.00 ng/mL [facility] Comment: The 99th percentile [...] additional sample may be indicated. Reference: Third Waite Definition of Myocardial Infarction. Journal of the [place] College [employer] Cardiology 2012;60:1581-98 CK, Total 101 0 - 200 unit/L [facility] Specimen Anatomical Collection Method Collection Time Receive d Time (Source) Location / / Volume Laterality Blood specimen 07/06/2017 2:10 PM 017 2:26 (specimen) EST PM EST Resulting Agency Comment Spec In Lab Daphne Shahid MD CHEMISTRY ORDERABLES Performing Organization Address City/State/[place] [address] POCT Glucose (07/06/2017 2:08 PM EST) P athologist Signature POC Glucose 192 65 - 199 [facility] mg/dL [facility] LABORATORY [...] Address City/State/ZIP Code Phon e Number [address] POCT Glucose (07/06/2017 1:04 PM EST) P athologist Signature POC Glucose 162 65 - 199 [facility] mg/dL [facility] Comment: Supplemental ranges: <140 mg/dL before meals <180 mg/dL all other times of the day Specimen Anatomical Collection Method Collection Time Receive d Time (Source) Location / / Volume Laterality Blood specimen 07/06/2017 1:04 PM 017 1:04 (specimen) EST PM EST Daphne Shahid MD POINT OF CARE TEST ORDERABLE S Performing Organization Address City/[facility]/ZIP Code Phon e Number [address] POCT Glucose (07/06/2017 12:05 PM EST) athologist Signature POC Glucose 196 65 - 199 [facility] mg/dL [facility] LABORATORY [...] Organization Address City/State/[place] [address] EKG 12 Lead (07/06/2017 12:00 PM EST) Component Value Ref Range Test Analysis Performed Pathologis t Method Time At Signature Ventricular rate 91 BPM MUSE SYSTEM Atrial Rate 91 BPM MUSE SYSTEM P-R Interval 140 ms MUSE SYSTEM QRS Duration 94 ms MUSE SYSTEM Q-T Interval 394 ms MUSE SYSTEM QTC Calculated 484 ms MUSE SYSTEM (Bezet) Calculated P [place] 36 degrees MUSE SYSTEM Calculated R [place] -19 degrees MUSE SYSTEM Calculated T [place] 104 degrees MUSE SYSTEM INTERPRETATION Normal sinus rhythm MUSE SYSTEM 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) ST & T wave abnormality, consider lateral ischemia Abnormal ECG When compared with ECG of 05-JUL-2017 20:39, No significant change was found Confirmed by MD Verma Gregory A. ([id number]) on 07/06/2017 5:07:33 PM Specimen Anatomical Collection [...] MD BLOOD BANK ORDERABLES Performing Organization Address City/[facility]/[place] [address] Antibody screen (07/06/2017 12:00 PM EST) [employer] Method Time Signature Ab Screen Negative [facility] LABORATORY Expires at 07/09/2017 [facility] 235 on: [facility] Specimen Anatomical Collection Method Collection Time Receive d Time (Source) Location / / Volume Laterality Blood specimen 07/06/2017 12:00 7 (specimen) PM EST 12:24 PM EST Resulting Agency Comment Spec In Lab Daphne Shahid MD BLOOD BANK ORDERABLES Performing Organization Address City/[facility]/[place] [address] ABO/Rh Typing (07/06/2017 12:00 [...] Organization Address City/State/[place] [address] Prothrombin Time (07/06/2017 11:24 AM EST) athologist Signature PT 13.3 11.8 - 14.0 [facility] LABORATORY INR 1.0 0.9 - 1.1 [facility] [...] Shahid MD HEMATOLOGY ORDERABLES Performing Organization Address City/[facility]/[place] [address] (ABNORMAL) APTT (07/06/2017 11:24 AM EST) athologist Signature PTT 52 (H) 25 - 35 sec [facility] [...] Organization Address City/State/[place] [address] POCT Glucose (07/06/2017 11:02 AM EST) athologist Signature POC Glucose 187 65 - 199 [facility] mg/dL [facility] LABORATORY [...] Address City/State/ZIP Code Phon e Number [address] POCT Glucose (07/06/2017 10:18 AM EST) athologist Signature POC Glucose 193 65 - 199 [facility] mg/dL [facility] LABORATORY [...] Address City/State/ZIP Code Phon e Number [address] POCT Glucose (07/06/2017 9:25 AM EST) athologist Signature POC Glucose 182 65 - 199 [place] mg/dL [facility] LABORATORY [...] Organization Address City/State/[place] [address] (ABNORMAL) Cardiac Enzymes (LEB/CGP) (07/06/2017 8:10 AM EST) athologist Signature Troponin-T 2.26 (H) 0.00 - [facility] 0.00 ng/mL [facility] LABORATORY Comment: The 99th percentile [...] additional sample may be indicated. Reference: Third Waite Definition of Myocardial Infarction. Journal of the [place] College of Cardiology 2012;60:1581-98 CK, Total 124 0 - 200 unit/L [facility] LABORATORY Specimen Anatomical Collection Method Collection Time Receive d Time (Source) Location / / Volume Laterality Blood specimen 07/06/2017 8:10 AM 017 8:23 (specimen) EST AM EST Resulting Agency Comment Spec In Lab Daphne Shahid MD CHEMISTRY ORDERABLES Performing Organization Address City/State/[place] [address] Magnesium (07/06/2017 8:10 AM EST) athologist Signature Magnesium 0.84 0.69 - 1.07 [facility] mmol/L [facility] LABORATORY Specimen Anatomical Collection Method Collection Time Receive d Time (Source) Location / / Volume Laterality Blood specimen 07/06/2017 8:10 AM 017 8:21 (specimen) EST AM EST Resulting Agency Comment Spec In Lab Daphne Shahid MD CHEMISTRY ORDERABLES Performing Organization Address City/[facility]/[place] [address] (ABNORMAL) Basic Metabolic Panel (non-fasting) (07/06/2017 8:10 AM EST) P athologist Signature Glucose Lvl 199 65 - 199 [facility] mg/dL [facility] LABORATORY Comment: Diabetes: >=200 mg/dL plus symp toms BUN 16 10 - 20 mg/dL [facility] LABORATORY Creatinine 1.04 0.80 - 1.50 mg/dL [facility] [...] [facility] LABORATORY Estimated GFR >60 >=60 [facility] LABORATORY Comment: The reported eGFR should be multiplied b y 1.2 for patients. The MDRD is not an appropriate measure o f renal function for patients with body mass extremes or in patients with acute kidney failure. http://[employer]/DHnkdep http://[employer]/DHMCnkf Specimen Anatomical Collection Method Collection Time Receive d Time (Source) Location / / Volume Laterality Blood specimen 07/06/2017 8:10 AM 017 8:21 (specimen) EST AM EST Resulting Agency Comment Spec In Lab Daphne Shahid MD CHEMISTRY ORDERABLES Performing Organization Address City/[facility]/[place] [address] POCT Glucose (07/06/2017 7:34 AM EST) P athologist Signature POC Glucose 198 65 - 199 [facility] mg/dL [facility] LABORATORY [...] Address City/State/ZIP Code Phon e Number [address] POCT Glucose (07/06/2017 7:03 AM EST) athologist Signature POC Glucose 181 65 - 199 [facility] mg/dL [facility] LABORATORY [...] Organization Address City/State/[place] [address] XR Chest PA or [...] Signature POC Glucose 172 65 - 199 [facility] mg/dL [facility] LABORATORY [...] City/State/[place] [address] POCT Glucose (07/06/2017 5:08 AM EST) athologist Signature POC Glucose 154 65 - 199 [facility] mg/dL [facility] LABORATORY [...] Address City/State/ZIP Code Phon e Number [address] POCT Glucose (07/06/2017 4:05 AM EST) athologist Signature POC Glucose 142 65 - 199 [facility] mg/dL [facility] LABORATORY Comment: Supplemental ranges: <140 mg/dL before meals <180 mg/dL all other times of the day Specimen Anatomical Collection Method Collection Time Receive d Time (Source) Location / / Volume Laterality Blood specimen 07/06/2017 4:05 AM 017 4:05 (specimen) EST AM EST Daphne Shahid MD POINT OF CARE TEST ORDERABLE S Performing Organization Address City/[facility]/ZIP Code Phon e Number [address] POCT Glucose (07/06/2017 3:00 AM EST) athologist Signature POC Glucose 116 65 - 199 [facility] LABORATORY [...] Address City/State/ZIP Code Phon e Number [address] Potassium (07/06/2017 2:20 AM EST) athologist Signature Potassium 3.9 3.5 - 5.0 [facility] mmol/L [facility] LABORATORY Comment: Please note: ??Patients [...] City/State/[place] [address] Differential, Automated (07/06/2017 2:20 AM EST) athologist Signature Neutrophils % 72.9 % [facility] LABORATORY Neutr Abs (ANC) 5.53 1.70 - [facility] 6.10 [facility] x10(3)[facility] LABORATORY Lymphocytes % 16.4 % [facility] Lymphocytes Abs 1.2 0.9 - 3.2 [facility] x10(3)/[facility] LABORATORY Monocytes % 9.4 % [facility] Monocyte Abs 0.7 0.3 - 0.9 [facility] x10(3)/[facility] LABORATORY Eosinophils % 0.5 % [facility] Eosinophils Abs 0.0 0.0 - 0.4 [facility] x10(3)[facility] LABORATORY Basophils % 0.4 % [facility] Basophils Abs 0.0 0.0 - 0.1 [facility] x10(3)/[facility] LABORATORY Immature Gran % 0.40 % [facility] Comment: Immature granulocytes(IG's)percentage an d absolute count will include metamyelocytes, myelocytes, and promyelo cytes. Blood smears from CBCs yielding IG's will be scanned manually for concor dance. If this scan disagrees with the automated IG or if promyelocytes are not ed, a manual differential will be performed. Melisa Gran Abs 0.03 0.00 - 0.04 x10(3)/[facility] MAR Y [facility] LABORATORY Specimen Anatomical Collection Method Collection Time Receive d Time (Source) Location / / Volume Laterality Blood specimen 07/06/2017 2:20 AM 017 2:33 (specimen) EST AM EST Resulting Agency Comment Spec In Lab Daphne Shahid MD HEMATOLOGY ORDERABLES Performing Organization Address City/State/[place] [address] (ABNORMAL) Hemogram (07/06/2017 2:20 AM EST) Analysis Performed At Patho logist Time Signature WBC 7.6 4.0 - 9.5 [facility] x10(3)/[facility] LABORATORY RBC 4.52 (L) 4.58 - [facility] 5.54 [facility] x10(6)/[facility] LABORATORY Hemoglobin 13.4 (L) 13.7 - [facility] 16.5 gm/dL [facility] LABORATORY Hematocrit 39.7 (L) 40.5 - [facility] 48.5 % [facility] LABORATORY MCV 87.8 82.9 - [facility] 93.1 [facility] LABORATORY MCH 29.6 27.5 - [place] 32.1 pg [facility] LABORATORY MCHC 33.8 32.0 - [facility] 35.7 gm/dL [facility] LABORATORY Platelets 189 145 - 357 [facility] x10(3)/[facility] LABORATORY RDWSD 45.6 (H) 36.0 - [facility] 45.0 [facility] LABORATORY RDWCV 14.3 (H) 11.4 - [facility] 13.8 % [facility] LABORATORY MPV 9.1 7.6 - 12.9 [facility] nRBC % Auto 0.0 % [facility] LABORATORY nRBC Abs Auto 0.000 0.000 - [place] 0.000 [facility] x10(3)/[facility] LABORATORY Specimen Anatomical Collection Method Collection Time Receive d Time (Source) Location / / Volume Laterality Blood specimen 07/06/2017 2:20 AM 017 2:33 (specimen) EST AM EST Resulting Agency Comment Spec In Lab Daphne Shahid MD HEMATOLOGY ORDERABLES Performing Organization Address City/State/ZIP Code Phon e Number [facility] [place] [address] (ABNORMAL) APTT (07/06/2017 2:20 AM EST) athologist Signature PTT 52 (H) 25 - 35 sec [facility] [...] Organization Address City/State/[place] [address] POCT Glucose (07/06/2017 2:20 AM EST) athologist Signature POC Glucose 115 65 - 199 [facility] mg/dL [facility] LABORATORY [...] Organization Address City/State/[place] [address] (ABNORMAL) Cardiac Enzymes (LEB/CGP) (07/06/2017 2:20 AM EST) athologist Signature Troponin-T 2.13 (H) 0.00 - [facility] 0.00 ng/mL [facility] LABORATORY Comment: The 99th percentile [...] additional sample may be indicated. Reference: Third Waite Definition of Myocardial Infarction. Journal of the [place] College of Cardiology 2012;60:1581-98 CK, Total 129 0 - 200 unit/L [facility] LABORATORY Specimen Anatomical Collection Method Collection Time Receive d Time (Source) Location / / Volume Laterality Blood specimen 07/06/2017 2:20 AM 017 2:33 (specimen) EST AM EST Resulting Agency Comment Spec In Lab Daphne Shahid MD CHEMISTRY ORDERABLES Performing Organization Address City/State/[place] [address] (ABNORMAL) Hemoglobin A1c (07/06/2017 [...] with hemoglobinopathies. Additional resources are available on [facility] ADA website. Macario HAMMOND, Ruthann J, Deysi R, et al. ??Tr anslating the A1C assay into estimated average glucose values. ??Diabetes Care 2008:31(8):7460-6676. Specimen Anatomical Collection Method Collection Time Receive d Time (Source) Location / / Volume Laterality Blood specimen 07/06/2017 2:20 AM 017 2:34 (specimen) EST AM EST Resulting Agency Comment Spec In Lab Daphne Shahid MD CHEMISTRY ORDERABLES Performing Organization Address City/State/[place] [address] (ABNORMAL) Lipid Panel (07/06/2017 2:20 AM EST) [employer] Method Time Signature Chol, Total 150 <=239 [place] mg/dL [facility] LABORATORY Triglycerides 129 <=199 [place] mg/dL [facility] LABORATORY HDL 32 (L) >=40 [place] mg/dL [facility] LABORATORY LDL Cholesterol 92 <=190 [place] mg/dL [facility] LABORATORY Chol/HDL Ratio 4.7 ratio [place] [facility] LABORATORY Lipid See Note [place] Hernandes [facility] LABORATORY Comment: Lipid management should be guided by a p atient? s ASCVD risk, goals and preferences. ACC/AHA Guidelines recommend high intens ity statin if clinical ASCVD or LDL greater than or equal to 190 mg/dL. http://PK CleanuriCrimefighter.com/QXS-QOM-Luhtvkiqh Adults aged 40-75 with LDL 70-189 mg/dL should have their 10 year ASCVD risk estimated with the ACC/AHA ASCVD risk es timator http://tools.acc.org/IMSPE-Xaat-Lwpyqvtm r/ Statin should be discussed if risk [...] City/State/[place] [address] POCT Glucose (07/06/2017 1:09 AM EST) P athologist Signature POC Glucose 121 65 - 199 [facility] mg/dL [facility] LABORATORY [...] Address City/State/ZIP [place] [address] POCT Glucose (07/06/2017 12:06 AM EST) athologist Signature POC Glucose 147 65 - 199 [facility] mg/dL [facility] LABORATORY [...] Organization Address City/State/[place] [address] (ABNORMAL) POCT Glucose (07/05/2017 10:56 PM EST) athologist Signature POC Glucose 200 (H) 65 - 199 [facility] mg/dL [facility] LABORATORY [...] Organization Address City/State/[place] [address] (ABNORMAL) POCT Glucose (07/05/2017 10:05 PM EST) athologist Signature POC Glucose 225 (H) 65 - 199 [facility] mg/dL [facility] LABORATORY [...] Organization Address City/State/[place] [address] (ABNORMAL) POCT Glucose (07/05/2017 9:02 PM EST) P athologist Signature POC Glucose 301 (H) 65 - 199 [place] mg/dL [facility] LABORATORY [...] Phon e Number [facility] [address] XR Chest PA or [...] 474 ms MUSE SYSTEM (Bezet) Calculated P [place] 50 degrees MUSE SYSTEM Calculated R [place] -28 degrees MUSE SYSTEM Calculated T [place] 90 degrees MUSE SYSTEM INTERPRETATION Sinus tachycardia [...] (ABNORMAL) Differential, Automated (07/05/2017 8:20 PM EST) [facility] gist Method Time Signature Neutrophils % 88.4 % [facility] LABORATORY Neutr Abs (ANC) 9.08 (H) 1.70 - [facility] 6.10 [facility] x10(3)/[facility] LABORATORY Lymphocytes % 7.0 % [facility] LABORATORY Lymphocytes Abs 0.7 (L) 0.9 - 3.2 [facility] x10(3)/[facility] LABORATORY Monocytes % 3.7 % [facility] LABORATORY Monocyte Abs 0.4 0.3 - 0.9 [facility] x10(3)/[facility] LABORATORY Eosinophils % 0.1 % [facility] LABORATORY Eosinophils Abs 0.0 0.0 - 0.4 [facility] x10(3)/[facility] LABORATORY Basophils % 0.2 % [facility] LABORATORY Basophils Abs 0.0 0.0 - 0.1 [facility] x10(3)/[facility] LABORATORY Immature Gran [...] City/State/[place] [address] (ABNORMAL) Hemogram (07/05/2017 8:20 PM EST) Analysis Performed At Patho logist Time Signature WBC 10.3 (H) 4.0 - 9.5 [facility] x10(3)/[facility] LABORATORY RBC 4.64 4.58 - [facility] 5.54 [facility] x10(6)/[facility] LABORATORY Hemoglobin 14.1 13.7 - [facility] 16.5 gm/dL [facility] LABORATORY Hematocrit 40.8 40.5 - [place] 48.5 % [facility] LABORATORY MCV 87.9 82.9 - [facility] 93.1 [facility] LABORATORY MCH 30.4 27.5 - [place] 32.1 pg [facility] LABORATORY MCHC 34.6 32.0 - [facility] 35.7 gm/dL [facility] LABORATORY Platelets 204 145 - 357 [facility] x10(3)/[facility] LABORATORY RDWSD 46.1 (H) 36.0 - [place]YAN 45.0 [facility] LABORATORY RDWCV 14.5 (H) 11.4 - [facility] 13.8 % [facility] LABORATORY MPV 9.7 7.6 - 12.9 [facility] LABORATORY nRBC % Auto 0.0 % [facility] LABORATORY nRBC Abs Auto 0.000 0.000 - [place] ZHAORYAN 0.000 [facility] x10(3)/[facility] LABORATORY Specimen Anatomical Collection Method Collection Time Receive d Time (Source) Location / / Volume Laterality Blood specimen 07/05/2017 8:20 PM 017 8:27 (specimen) EST PM EST Resulting Agency Comment Spec In Lab Daphne Shahid MD HEMATOLOGY ORDERABLES Performing Organization Address City/[facility]/ZIP Code Phon e Number [address] APTT (07/05/2017 8:20 PM EST) P athologist Signature PTT 32 25 - 35 sec [facility] [...] Shahid MD HEMATOLOGY ORDERABLES Performing Organization Address City/[facility]/ZIP [facility] [place] [address] (ABNORMAL) Cardiac Enzymes (LEB/CGP) (07/05/2017 8:20 PM EST) P athologist Signature Troponin-T 2.11 (H) 0.00 - [facility] 0.00 ng/mL [facility] LABORATORY Comment: The 99th percentile [...] additional sample may be indicated. Reference: Third Waite Definition of Myocardial Infarction. Journal of the [place] College of Cardiology 2012;60:1581-98 CK, Total 149 0 - 200 unit/L [facility] LABORATORY Specimen Anatomical Collection Method Collection Time Receive d Time (Source) Location / / Volume Laterality Blood specimen 07/05/2017 8:20 PM 017 8:27 (specimen) EST PM EST Resulting Agency Comment Spec In Lab Daphne Shahid MD CHEMISTRY ORDERABLES Performing Organization Address City/[facility]/[place] [address] (ABNORMAL) Magnesium (07/05/2017 8:20 PM EST) P athologist Signature Magnesium 0.68 (L) 0.69 - 1.07 [facility] mmol/L [facility] LABORATORY Specimen Anatomical Collection Method Collection Time Receive d Time (Source) Location / / Volume Laterality Blood specimen 07/05/2017 8:20 PM 017 8:27 (specimen) EST PM EST Resulting Agency Comment Spec In Lab Daphne Shahid MD CHEMISTRY ORDERABLES Performing Organization Address City/State/[place] [address] (ABNORMAL) Basic Metabolic Panel (non-fasting) (07/05/2017 8:20 PM EST) athologist Signature Glucose Lvl 321 (H) 65 - 199 [facility] mg/dL [facility] LABORATORY Comment: Diabetes: >=200 mg/dL plus symp toms BUN 20 10 - 20 mg/dL [facility] LABORATORY Creatinine 1.12 0.80 - 1.50 mg/dL [facility] LABORATORY Sodium 139 135 - 145 mmol/L [facility] LABORATORY Potassium 3.8 3.5 - 5.0 mmol/L [facility] Estimated GFR >60 >=60 [facility] LABORATORY Comment: The reported eGFR should be multiplied b y 1.2 for patients. The MDRD is not an appropriate measure o f renal function for patients with body mass extremes or in patients with acute kidney failure. http://[employer]/DHnkdep http://[employer]/DHMCnkf Specimen Anatomical Collection Method Collection Time Receive d Time (Source) Location / / Volume Laterality Blood specimen 07/05/2017 8:20 PM 017 8:27 (specimen) EST PM EST Resulting Agency Comment Spec In Lab Daphne Shahid MD CHEMISTRY ORDERABLES Performing Organization Address City/State/[place] [address] (ABNORMAL) POCT Glucose (07/05/2017 7:32 PM EST) athologist Signature POC Glucose 296 (H) 65 - 199 [facility] mg/dL [facility] LABORATORY [...] Address City/State/ZIP Code [place] [address] CARDIAC CATHETERIZATION (07/05/2017 6:47 PM EST) Anatomical Region Laterality Modality Other Specimen (Source) Anatomical Location Collection Method / Collectio n Time Received Time / Laterality Volume Narrative 07/05/2017 7:27 PM EST ?[facility] ? Cardiac Cathete rization/Intervention Report ? Patient Name: Natalya, Gregory ? Procedure Date: 07/05/2017 ? A #: [id number] ? Primary Physician: Clarisa, Jet T ? Case #: [id number] ? File Name: [id number] ? Catheterization Order Number: [id number] ? [facility] ?Sales Communications Manager [facility] ? Final Report [place], [place] ? Patient Name: ? Gregory Natalya ?ID#: ?[id number] ? : ?1945 ? Procedure Date: ? [...] presented with: non -STEMI (w/i 7 days). Brazilian ?Cardiovascular Society angina c lass was IV. 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 ? Jet Mckenna, M.D. ? Electronically Signed by: Jet Sampson DeVrizack s, M.D. ? Report Finalized: 07/05/2017 ??19:23 ? Report Last Ammended: 10/26/2017 ??10:29 ? Procedure Note Jet Mckenna MD - 10/26/2017Formatt ing of this note might be different from the original. [facility] Cardiac Catheterization/Intervention Re port Patient Name: Gregory Hoang Procedure Date: 07/05/2017 A #: [id number] Primary Physician: Jet Mckenna Case #: [id number] File Name: [id number] Catheterization Order Number: [id number] [facility] Sales Communications Manager [facility] Final Report [place], [place] Patient Name: Gregory Hoang ID#: [id number] : 1945 Procedure Date: July 05, [...] presented with: non-STEMI ( w/i 7 days). [place] Cardi[employer] Society angina class was IV. No [...] site angiograph y and IABP insertion in irrigation laborer. Jet Mckenna M.D. Electronically Signed by: [...] E ? (Age): 1945(72y) Med Rec#: ? [id number] ?Sex: ?M ? Site Loc: ? [facility] ?Ht / Wt: ??173(cm)/86(kg) Pt. Loc: ?CCU ? BSA: ?2 Study Date: ?? 07/05/2017 ?Pt. Type: Inpatient Tape: ? Referring: Daphne Shahid ([id number]) Referring: MANDA ALCANTAR Reading: Blade Preston ([id number]) Plant Sprayer: Dayami Paula BA, [facility] [...] E-wave Vmax ?0.8 ?m/sec ? MV deceleration [id number] ?msec ? MV A-wave Vmax ?0.8 ?m/sec [...] ? Mid-Inferior ?Akinetic ? Mid-Inferoseptal ?Hypokinetic ? [place]-Septal ? Akinetic ? [place]-Anterior ? Hypokinetic ? [place]-Lateral ?Hypokinetic ? [place]-Inferior ? Akinetic ? [place]-Tip ?Akinetic ? This report has been electronically sign ed by: _ Blade Preston MD ? 07/06/2017 08 :53:15 Images reviewed and interpretation verif ied [facility] Cardiac Ultrasound Laboratory Procedure Note Blade Preston MD - 07/06/2017Formatt ing of this note might be different from the original. Procedure: Transthoracic Echocardiogram Patient: NATALYA MCBRIDE(Age): [birth year]72y) Med Rec#: [id number] Sex: M [place] [facility] Ht / Wt: 173(cm)/86(kg) Pt. Loc: U BSA: 2 Study Date: 07/05/2017 Pt. Type: Inpatie nt Tape: Referring: Daphne Shahid ([id number]) Referring: MANDA ALCANTAR Reading: Blade Preston ([id number]) Plant Sprayer: Dayami Paula BA, [facility] [...] MV E-wave Vmax 0.8 m/sec MV deceleration [id number] msec MV A-wave Vmax 0.8 m/sec MV [...] Hypokinetic Mid-Posterolateral Hypokinetic Mid-Inferior A[place] Mid-Inferoseptal Hypokinetic [place]-Septal Akinetic [place]-Anterior Hypokinetic [place]-Lateral Hypokinetic [place]-Inferior Akinetic [place]-Tip Akinetic This report has been electronically sign ed by: _ Blade Preston MD 07/06/2017 08:53:15 Images reviewed and interpretation verif ied [facility] Cardiac Ultrasound Laboratory Daphne Shahid MD ECHO ORDERABLES Differential, Automated (07/05/2017 4:55 PM EST) athologist Signature Neutrophils % 77.0 % [facility] LABORATORY Neutr Abs (ANC) 5.26 1.70 - [facility] 6.10 [facility] x10(3)[facility] Lymphocytes % 13.3 % [facility] Lymphocytes Abs 0.9 0.9 - 3.2 [facility] x10(3)/[facility] LABORATORY Monocytes % 8.2 % [facility] Monocyte Abs 0.6 0.3 - 0.9 [facility] x10(3)/[facility] LABORATORY Eosinophils % 0.7 % [facility] Eosinophils Abs 0.0 0.0 - 0.4 [facility] x10(3)[facility] LABORATORY Basophils % 0.4 % [facility] Basophils Abs 0.0 0.0 - 0.1 [facility] x10(3)/[facility] LABORATORY Immature Gran % 0.40 % [facility] Comment: Immature granulocytes(IG's)percentage an d absolute count will include metamyelocytes, myelocytes, and promyelo cytes. Blood smears from CBCs yielding IG's will be scanned manually for concor dance. If this scan disagrees with the automated IG or if promyelocytes are not ed, a manual differential will be performed. Melisa Gran Abs 0.03 0.00 - 0.04 x10(3)/[facility] MAR Y [facility] LABORATORY Specimen Anatomical Collection Method Collection Time Receive d Time (Source) Location / / Volume Laterality Blood specimen 07/05/2017 4:55 PM 017 5:24 (specimen) EST PM EST Resulting Agency Comment Spec In Lab Daphne Shahid MD HEMATOLOGY ORDERABLES Performing Organization Address City/State/[place] [address] (ABNORMAL) Hemogram (07/05/2017 4:55 PM EST) Analysis Performed At Patho logist Time Signature WBC 6.8 4.0 - 9.5 [facility] x10(3)/[facility] LABORATORY RBC 4.67 4.58 - [place] RYAN 5.54 [facility] x10(6)/[facility] LABORATORY Hemoglobin 14.0 13.7 - [facility] gm/dL [facility] LABORATORY Hematocrit 41.0 40.5 - [facility] 48.5 % [facility] LABORATORY MCV 87.8 82.9 - [facility] 93.1 [facility] LABORATORY MCH 30.0 27.5 - [place] 32.1 pg [facility] LABORATORY MCHC 34.1 32.0 - [place] 35.7 gm/dL [facility] LABORATORY Platelets 197 145 - 357 [facility] x10(3)/[facility] LABORATORY RDWSD 46.4 (H) 36.0 - [facility] 45.0 [facility] LABORATORY RDWCV 14.5 (H) 11.4 - [facility] 13.8 % [facility] LABORATORY MPV 9.7 7.6 - 12.9 [facility] nRBC % Auto 0.0 % [facility] LABORATORY nRBC Abs Auto 0.000 0.000 - [facility] 0.000 [facility] x10(3)/[facility] LABORATORY Specimen Anatomical Collection Method Collection Time Receive d Time (Source) Location / / Volume Laterality Blood specimen 07/05/2017 4:55 PM 017 5:24 (specimen) EST PM EST Resulting Agency Comment Spec In Lab Daphne Shahid MD HEMATOLOGY ORDERABLES Performing Organization Address City/State/[place] [address] (ABNORMAL) Cardiac Enzymes (LEB/CGP) (07/05/2017 4:55 PM EST) P athologist Signature Troponin-T 1.69 (H) 0.00 - [place] 0.00 ng/mL [facility] LABORATORY Comment: The 99th percentile [...] additional sample may be indicated. Reference: Third Waite Definition of Myocardial Infarction. Journal of the [place] College of Cardiology 2012;60:1581-98 CK, Total 191 0 - 200 unit/L [facility] LABORATORY Specimen Anatomical Collection Method Collection Time Receive d Time (Source) Location / / Volume Laterality Blood specimen 07/05/2017 4:55 PM 017 5:56 (specimen) EST PM EST Resulting Agency Comment Spec In Lab Daphne Shahid MD CHEMISTRY ORDERABLES Performing Organization Address City/State/ZIP Code Phon e Number [place] [phone] HOSPITAL LAB[address]ORY [address] (ABNORMAL) pro-Brain Natriuretic Peptide (07/05/2017 4:55 PM EST) P athologist Signature ProBNP 1,598 (H) <=125 [facility] pg/mL [facility] LABORATORY Specimen Anatomical Collection Method Collection Time Receive d Time (Source) Location / / Volume Laterality Blood specimen 07/05/2017 4:55 PM 017 5:24 (specimen) EST PM EST Resulting Agency Comment Spec In Lab Daphne Shahid MD CHEMISTRY ORDERABLES Performing Organization Address City/State/ZIP Code Phon e Number [address] Magnesium (07/05/2017 4:55 PM EST) P athologist Signature Magnesium 0.78 0.69 - 1.07 [facility] mmol/L [facility] LABORATORY Specimen Anatomical Collection Method Collection Time Receive d Time (Source) Location / / Volume Laterality Blood specimen 07/05/2017 4:55 PM 017 5:24 (specimen) EST PM EST Resulting Agency Comment Spec In Lab Daphne Shahid MD CHEMISTRY ORDERABLES Performing Organization Address City/[facility]/[place] [address] (ABNORMAL) Basic Metabolic Panel (non-fasting) (07/05/2017 4:55 PM EST) P athologist Signature Glucose Lvl 230 (H) 65 - 199 [facility] mg/dL [facility] LABORATORY Comment: Diabetes: >=200 mg/dL plus symp toms BUN 19 10 - 20 mg/dL [facility] LABORATORY Creatinine 1.04 0.80 - 1.50 mg/dL [facility] [...] [facility] LABORATORY Estimated GFR >60 >=60 [facility] LABORATORY Comment: The reported eGFR should be multiplied b y 1.2 for patients. The MDRD is not an appropriate measure o f renal function for patients with body mass extremes or in patients with acute kidney failure. http://[employer]/DHnkdep http://[employer]/MCnkf Specimen Anatomical Collection Method Collection Time Receive d Time (Source) Location / / Volume Laterality Blood specimen 07/05/2017 4:55 PM 017 5:24 (specimen) EST PM EST Resulting Agency Comment Spec In Lab Daphne Shahid MD CHEMISTRY ORDERABLES Performing Organization Address City/[facility] Code Phon e Number [address] (ABNORMAL) APTT (07/05/2017 4:55 PM EST) P athologist Signature PTT 41 (H) 25 - 35 sec [facility] Shahid MD HEMATOLOGY ORDERABLES Performing Organization Address City/[facility] [place] [address] (ABNORMAL) POCT Glucose (07/05/2017 4:53 PM EST) P athologist Signature POC Glucose 208 (H) 65 - 199 [facility] mg/dL [facility] LABORATORY [...] Organization Address City/State/ZIP Code Phon e Number [place] [phone] HOSPITAL LAB[address]ORY Drive EKG 12 Lead (07/05/2017 4:32 PM EST) Component Value Ref Range Test Analysis Performed Pathologis t Method Time At Signature Ventricular rate 97 BPM MUSE SYSTEM Atrial Rate 97 BPM MUSE SYSTEM P-R Interval 148 ms MUSE SYSTEM QRS Duration 96 ms MUSE SYSTEM Q-T Interval 364 ms MUSE SYSTEM QTC Calculated 462 ms MUSE SYSTEM (Bezet) Calculated P [place] 48 degrees MUSE SYSTEM Calculated R [place] -33 degrees MUSE SYSTEM Calculated T [place] 98 degrees MUSE SYSTEM INTERPRETATION Normal sinus [...] Coronary atherosclerosis of unspecified type of vessel, [place] or graft Cardiomyopathy, ischemic Other specified forms [...] in dextrose 5% 250 mL EST infusion (WHITTLING ROOM OPERATOR) CONTINUOUS PRN, Starting on Wed07/05/17 at [...] Jones, VAMSI)1307 (Given - Provider: Em Jones, AVMSI) 0-20 Units, Subcutaneous, 3 TIMES DAILY WITH [...] Provider: More Luther RN)2201 (Given - Provider: Ael Rangel, VAMSI) 0615 (Given - Provider: Ale [...] meds running) 0615 (Given - Provider: Ale Rnagel RN)1330 (Not Given - Provider: Em Jones RN - Reason: Contraindicated)2003 (Given - Provider: Denice Jacobson RN) 0532 (Given - Provider: Dneice Jacobson RN)1330 (Not Given - Provider: Myrna [...]
Routine documented in this encounter Care Teams Cmv Driver Relationship Specialty Start Date End Date Lovely Vicente MD PCP - General 04/16/[address] [place] [address] [address] [place] [address] documented as of this encounter
--- OUTSIDE RECORDS SUMMARY | 2022-04-17 08:30 | XMS_ITS | Encounter Summary ---
:1945 Author Organization [facility] [place] [address] Care Team Providers Name Role Phone Lovely Vicente MD Primary Care Provider Reason for Visit Reason Onset Date Comments Medication Refill 12/24/2016 Encounter Details Date Type Department Care Team Description 12/24/2016 Refill Endocrinology at [facility] Luz Stallings MD [facility] [place] [address] ENDOCRINOLOGY DEPT [phone] [place], [place] [address] (Wo rk) Social History Tobacco [...] Dolan MD [facility] er [address] [place] [address] (Wo rk) 05/28/2022 Laboratory Appointment Lab 05/28/2022 Office Visit Cardiology Zulma Dolan MD [facility] [place] [address] Liz Poole PA [facility] [place] [address] 06/10/2022 Office Visit Dermatology Laura Scherer MD [facility] DR [address] [place], [place] [address] (Wo rk) documented as of this encounter Visit Diagnoses Not on filedocumented in this encounter Care Teams Workday Consultant Relationship Specialty Start Date End Date Lovely Vicente MD PCP - General 04/16/[address] [place], [place] [address] documented as of this encounter
--- OUTSIDE RECORDS SUMMARY | 2022-04-17 08:30 | XMS_ITS | Encounter Summary ---
:1945 Author Organization [facility] [place] [address] Care Team Providers Name Role Phone Angela Holliday APRN Primary Care Provider Encounter Details Date Type Department Care Team Description 04/30/2014 Orders Only Endocrinology at [facility] Albertina Palmer, Thyroid cancer [facility] Jorge Boyer MD (Primary Dx) [place] [address] [facility] [phone] CENTER ENDOCRINOLOGY DEPT [place], [place] [address] Social History Tobacco Use [...] MD [facility] er Dr [place], [place] [address] (Wo rk) 05/28/2022 Laboratory Appointment Lab 05/28/2022 Office Visit Cardiology Zulma Dolan [place] [address] Liz Poole PA [facility] [place] [address] 06/10/2022 Office Visit Dermatology Laura Scherer MD [facility] ER DR [address]MAT [place], [place] [address] (Wo rk) documented as of this encounter Visit Diagnoses Diagnosis Thyroid cancer - Primary Malignant neoplasm of thyroid gland documented in this encounter Care Teams Railroad Car Loader Relationship Specialty Start Date End Date Angela Holliday APRN PCP - General 01/25/13 04/15/[address] [place] [address] documented as of this encounter
--- OUTSIDE RECORDS SUMMARY | 2022-04-17 08:30 | XMS_ITS | Encounter Summary ---
:1945 Author Organization [facility] [place] [address] Care Team Providers Name Role Phone Lovely Vicente MD Primary Care Provider Reason for Visit Reason Onset Date Comments Medication Refill 06/19/2016 Encounter Details Date Type Department Care Team Description 06/19/2016 Refill Endocrinology at [facility] Luz Stallings MD [facility] [place] [address] ENDOCRINOLOGY DEPT [phone] [place], [place] [address] (Wo rk) Social History Tobacco [...] [facility] er [facility] [place] [id number] (Wo rk) 05/28/2022 Laboratory Appointment Lab 05/28/2022 Office Visit Cardiology Zulma Dolan MD [facility] [place] [id number] Liz Poole PA [facility] [place] [address] 06/10/2022 Office Visit Dermatology Laura Scherer MD [facility] DR [address]DER[address] [place], [place] [address] (Wo rk) documented as of this encounter Visit Diagnoses Not on filedocumented in this encounter Care Teams Tennis Player Relationship Specialty Start Date End Date Lovely Vicente MD PCP - General 04/16/[address] [place], [place] [address] documented as of this encounter
--- OUTSIDE RECORDS SUMMARY | 2022-04-17 08:30 | XMS_ITS | Encounter Summary ---
:1945 Author Organization [facility] [address] Care Team Providers Name Role Phone MiyaAngela STACIE Primary Care Provider Encounter Details Date Type Department Care Team Description 11/27/2013 Orders Only Urology at [facility] Blade Smith, Urinary retention [facility] (Primary Dx) [place] [address] UROLOGY DEPT [place], [place] [address] Social History Tobacco Use [...] MD [facility] er [place], [place] [address] (Wo rk) 05/28/2022 Laboratory Appointment Lab 05/28/2022 Office Visit Cardiology Zulma Dolan MD [facility] [place] [address] Liz Poole PA [facility] [place] [address] 06/10/2022 Office Visit Dermatology Laura Scherer MD [facility] ER DR [address]DERMAT [place], [place] [address] (Wo rk) documented as [...] Organization Address City/State/[place] [address] CERNER MILLENNIUM documented in this encounter Visit Diagnoses Diagnosis Urinary retention - Primary Retention of urine, unspecified documented in this encounter Care Teams Apple Press Operator Relationship Specialty Start Date End Date Angela Holliday APRN PCP - General 01/25/13 04/15/[address] [place] [address] documented as of this encounter
--- OUTSIDE RECORDS SUMMARY | 2022-04-17 08:30 | XMS_ITS | Encounter Summary ---
:1945 Author Organization [facility] [place] [address] Care Team Providers Name Role Phone Lovely Vicente MD Primary Care Provider Encounter Details Date Type Department Care Team Description 07/05/2017 Telephone Cardiology Kim Galindo MD [facility] [place] [address] CARDIOLOGY DEPT [phone] [place], [place] [address] (Wo rk) Social History Tobacco [...] Referring Provider: Ivania CROWELL) Patient Location: [facility] Presenting Symptoms per OSH: 72 year old [...] afternoon and arrhythmia monitoring. Kim Galindo MD Certified Nurses Aide documented in this encounter Plan of Treatment Upcoming Encounters Date Type Specialty Care Team Description 05/28/2022 Appointment Cardiology Zulma Dolan MD [facility] [address] [place], [place] [address] (Wo rk) 05/28/2022 Laboratory Appointment Lab 05/28/2022 Office Visit Cardiology Zulma Dolan MD [facility] [place] [address] Liz Poole PA [facility] [place] [address] 06/10/2022 Office Visit Dermatology Laura Scherer MD [facility] [address] GR[address]DERMAT [place], [place] [address] (Wo rk) documented as of this encounter Visit Diagnoses Not on filedocumented in this encounter Care Teams Internal Grinding Machine Operator Relationship Specialty Start Date End Date Lovely Vicente MD PCP - General 04/16/[address] [place] [address] documented as of this encounter
--- OUTSIDE RECORDS SUMMARY | 2022-04-17 08:30 | XMS_ITS | Encounter Summary ---
:1945 Author Organization [facility] [place] [address] Care Team Providers Name Role Phone Angela Holliday APRN Primary Care Provider Encounter Details Date Type Department Care Team Description 03/30/2013 Telephone General Surgery at [facility] Cliff Nevarez, [place] [address] Social History Tobacco Use Types Packs/Day [...] Cardiology Zulma Dolan MD [facility] [address] [place], [place] [address] (Wo rk) 05/28/2022 Laboratory Appointment Lab 05/28/2022 Office Visit Cardiology Zulma Dolan MD [facility] [place] [address] Liz Poole PA [facility] [place] [address] 06/10/2022 Office Visit Dermatology Laura Scherer MD [facility] DR [address] [place], [place] [address] (Wo rk) documented as of this encounter Visit Diagnoses Not on filedocumented in this encounter Care Teams Photographic Enlarger Operator Relationship Specialty Start Date End Date Angela Holliday APRN PCP - General 01/25/13 04/15/[address] [place] [address] documented as of this encounter
--- OUTSIDE RECORDS SUMMARY | 2022-04-17 08:30 | XMS_ITS | Encounter Summary ---
:1945 Author Organization [facility] [place] [address] Care Team Providers Name Role Phone Som Holliday APRN Primary Care Provider Encounter Details Date Type Department Care Team Description 04/11/2014 Procedure visit [facility]astroenterology at [facility] Esophageal reflux [facility] Luz Winchester RN (Primary Dx) [place] [address] Social History Tobacco Use Types Packs/Day Years Used Date Former Smoker Alcohol Use Standard Drinks/Week Comments No 0 (1 standard drink = 0.6 oz pure alcoho l) Sex Assigned at Date Recorded Not on file documented as of this encounter Progress Notes Adalid Can MD - 04/13/2014 3:43 PM EDT ESOPHAGEAL MANOMETRY Don Fatima Male, 69 yrs, 1945 PCP: SOM [place] OPERATOR: NONE STUDY DATE: 04/11/14 PROVIDER: Adalid Can, [place] ([id number]) INDICATION Reflux; preoperative evaluation. METHODS Stationary esophageal manometry was performed with the Lumetrics esophageal motility system utilizing the Polygram software [...] of the esophagus. Adalid Can, PhD, MD truck unloader, [facility] [employer] Section of Gastroenterology and Hepatology [place] [address] V: [phone] F: [phone] [facility]/gabriela CC/EC: PCP - staff msg copy 04/13/14 Henrique Taylor MD - fax copy 04/13/14 Luz Keller RN - 04/11/2014 8:14 AM EDT Esophageal manometry performed without difficulty and Was well tolerated. documented in this encounter Plan of Treatment Upcoming Encounters Date Type Specialty Care Team Description 05/28/2022 Appointment Cardiology Zulma Dolan MD [facility] [address], [place] [address] (Wo rk) 05/28/2022 Laboratory Appointment Lab 05/28/2022 Office Visit Cardiology Zulma Dolan MD [facility] [place] [address] Liz Poole PA [facility] [place] [address] 06/10/2022 Office Visit Dermatology Laura Scherer MD [facility] DR [address] [place], [place] [address] (Wo rk) documented as of this encounter Visit Diagnoses Diagnosis Esophageal reflux - Primary documented in this encounter Care Teams Energy Systems Laboratory Director Relationship Specialty Start Date End Date Som Holliday APRN PCP - General 01/25/13 04/15/[address] [place] [address] documented as of this encounter
--- OUTSIDE RECORDS SUMMARY | 2022-04-17 08:30 | XMS_ITS | Encounter Summary ---
:1945 Author Organization [facility] [place] [address] Care Team Providers Name Role Phone Lovely Vicente MD Primary Care Provider Reason for Visit Reason Comments Skin Check Encounter Details Date Type Department Care Team Description 06/05/2016 Office Visit Dermatology at [facility] ist[facility] of melanoma; Abdelrahman HOOPER MD Seborrheic keratosis; [address] [facility] [place] (actinic keratosis); [place] [address] Multiple nevi; [phone] [facility] [address]DERMAT[address]GY [place], [place] [address] Social History Tobacco Use Types [...] Zulma Dolan MD [facility] [place], [place] [address] (Wo rk) 05/28/2022 Laboratory Appointment Lab 05/28/2022 Office Visit Cardiology Zulma Dolan MD [facility] [place] [address] Liz Poole PA [facility] [place] [address] 06/10/2022 Office Visit Dermatology Laura Scherer MD [facility] DR [address] [place], [place] [address] (Wo rk) documented as of this encounter Visit Diagnoses Diagnosis History of melanoma Personal history of malignant melanoma o f skin Seborrheic keratosis Other seborrheic keratosis [place] (actinic keratosis) Actinic keratosis Multiple nevi Benign neoplasm of skin, site unspecifie d Scar Scar condition and fibrosis of skin documented in this encounter Care Teams Developmental Training Counselor Relationship Specialty Start Date End Date Lovely Vicente MD PCP - General 04/16/[address] [place] [address] documented as of this encounter
--- OUTSIDE RECORDS SUMMARY | 2022-04-17 08:30 | XMS_ITS | Encounter Summary ---
:1945 Author Organization [facility] [place] [address] Care Team Providers Name Role Phone Lovely Vicente MD Primary Care Provider Reason for Visit Reason Comments Follow-up Encounter Details Date Type Department Care Team Description 06/03/2017 Office Visit Dermatology at [facility] benign nevi; Abdelrahman HOOPER MD History of melanoma; [address] [facility] History of dysplastic nevus; [place] [address] Skin exam for malignant neoplasm [phone] [facility]-DERMATOLGY [place], [place] [address] Social History Tobacco Use Types [...] Zulma Dolan MD [facility] [place], [place] [address] (Wo rk) 05/28/2022 Laboratory Appointment Lab 05/28/2022 Office Visit Cardiology Zulma Dolan MD [facility] [place] [address] Liz Poole PA [facility] [place] [address] 06/10/2022 Office Visit Dermatology Laura Scherer MD [facility] DR [address]DERMAT [place], [place] [address] (Wo rk) documented as [...] skin documented in this encounter Care Teams Branding Specialist Relationship Specialty Start Date End Date Lovely Vicente MD PCP - General 04/16/15 [facility] [address] [place] [address] documented as of this encounter
--- OUTSIDE RECORDS SUMMARY | 2022-04-17 08:30 | XMS_ITS | Encounter Summary ---
:1945 Author Organization [facility] [place] [address] Care Team Providers Name Role Phone Lovely Vicente MD Primary Care Provider Encounter Details Date Type Department Care Team Description 11/28/2016 Telephone Dermatology at [facility] Rigoberto Garcia III, [address] [place] [address] [facility] [phone] [facility] SIMÓN-DERMAT [place], [place] [address] (Wo rk) Social History [...] Dolan MD [facility] [address] [place], [place] [address] (Wo rk) 05/28/2022 Laboratory Appointment Lab 05/28/2022 Office Visit Cardiology Zulma Dolan MD [facility] [place] [address] Liz Poole PA [facility] [place] [address] 06/10/2022 Office Visit Dermatology Laura Scherer MD [facility] DR [address] MARIE-DERMAT [place], [place] [address] (Wo rk) documented as of this encounter Visit Diagnoses Not on filedocumented in this encounter Care Teams Progressive Assembler And Fitter Relationship Specialty Start Date End Date Lovely Vicente MD PCP - General 04/16/[address] [place] [address] documented as of this encounter
--- OUTSIDE RECORDS SUMMARY | 2022-04-17 08:30 | XMS_ITS | Encounter Summary ---
:1945 Author Organization [facility] [address] Care Team Providers Name Role Phone Angela Holliday APRN Primary Care Provider Encounter Details Date Type Department Care Team Description 04/05/2013 Office Visit Urology at [facility] [place] [address] Social History Tobacco Use Types Packs/Day [...] MD [facility] [address] [place] [address] (Wo rk) 05/28/2022 Laboratory Appointment Lab 05/28/2022 Office Visit Cardiology Zulma Dolan MD [facility] [address] Liz Poole PA [facility] [place] [address] 06/10/2022 Office Visit Dermatology Laura Scherer MD [facility] [address] [place], [place] [address] (Wo rk) documented as of this encounter Visit Diagnoses Not on filedocumented in this encounter Care Teams Cotton Grower Relationship Specialty Start Date End Date Angela Holliday APRN PCP - General 01/25/13 04/15/[address] [place] [address] documented as of this encounter
--- OUTSIDE RECORDS SUMMARY | 2022-04-17 08:30 | XMS_ITS | Encounter Summary ---
:1945 Author Organization [facility] [place] [address] Care Team Providers Name Role Phone MiyaAngela STACIE Primary Care Provider Reason for Visit Reason Comments Post Op voiding trial Encounter Details Date Type Department Care Team Description 04/05/2013 [place] [facility] [place]gan, UTI ([facility] MD tract infection) [facility] (Primary Dx) [place] [address] UROLOGY DEPT [phone] [place], [place] [address] Social History Tobacco Use Types [...] Dolan MD [facility] [place], [place] [address] (Wo rk) 05/28/2022 Laboratory Appointment Lab 05/28/2022 Office Visit Cardiology Zulma Dolan MD [facility] [place] [address] Liz Poole PA [facility] [place] [address] 06/10/2022 Office Visit Dermatology Laura Scherer MD [facility] [address] [place], [place] [address] (Wo rk) documented as of [...] [facility] Method Time Signature Urine Culture CERNER ? Patient Name: GREGORY HOANG ? Ordered By: DARRYL EGAN [facility] ? MR#: [id number] ?LOC: ??5B ? /Sex: ??1945 (68 years), [...] S ? Patient: GREGORY HOANG ? MR#: [id number] ? FOOTNOTES ? (1) ? This organism [...] Organization Address City/State/[place] [address] RAKESH WALKER documented in this encounter Visit Diagnoses Diagnosis UTI (lower urinary tract infection) - Pr imary Urinary tract infection, site not specif ied documented in this encounter Care Teams Marketing Programs Manager Relationship Specialty Start Date End Date Angela Holliday APRN PCP - General 01/25/13 04/15/[address] [place] [address] documented as of this encounter
--- OUTSIDE RECORDS SUMMARY | 2022-04-17 08:30 | XMS_ITS | Encounter Summary ---
:1945 Author Organization [facility] [place] [address] Care Team Providers Name Role Phone MiyaAngela STACIE Primary Care Provider Encounter Details Date Type Department Care Team Description 04/26/2014 Office Visit Endocrinology at [facility] Albertina Palmer, Papillary thyroid [facility] [place] [address] CENTER [phone] ENDOCRINOLOGY DEPT [place] [address] Social History Tobacco Use Types Packs/Day Years [...] on [place]. Rosalind Palmer Endocrine Staff Physician [facility] Rosalind Palmer MD - 04/26/2014 8:39 AM [...] one yr Rosalind Palmer Endocrine Staff Physician [facility] documented in this encounter Plan of Treatment Upcoming Encounters Date Type Specialty Care Team Description 05/28/2022 Appointment Cardiology Zulma Dolan MD [facility] [place], [place] [address] (Wo rk) 05/28/2022 Laboratory Appointment Lab 05/28/2022 Office Visit Cardiology Zulma Dolan MD [facility] [place] [address] Liz Poole PA [facility] [place] [address] 06/10/2022 Office Visit Dermatology Laura Scherer MD [facility] [address] [place], [place] [address] (Wo rk) documented as of [...] athologist Signature Thyroglobulin <0.4 <=54.9 CERNER ng/mL [facility] Comment: Interpret with caution. Tg [...] BR et al. J Clin Endo Metab 1999;84:2114-5570). Assay performed using the DPC Immulite T [...] Address City/State/ZIP Code Phon e Number [address] CERNER MILLENNIUM (ABNORMAL) TSH (04/26/2014 9:07 AM EDT) P athologist Signature TSH 4.46 (H) 0.27 - 4.20 CERNER mcIU/mL MILLENNIUM Specimen Anatomical Collection Method Collection Time Receive d Time (Source) Location / / Volume Laterality Blood specimen 04/26/2014 9:07 AM 014 9:12 (specimen) EDT AM EDT Resulting Agency Comment Spec In Lab Rosalind Palmer MD CHEMISTRY ORDERABLES Performing Organization Address City/[facility]/ZIP Code Phon e Number [address] CERNER MILLENNIUM documented in this encounter Visit Diagnoses Diagnosis Papillary thyroid carcinoma Malignant neoplasm of thyroid gland documented in this encounter Care Teams Photolithographer Relationship Specialty Start Date End Date Angela Holliday APRN PCP - General 01/25/13 04/15/[address] [place] [address] documented as of this encounter
--- OUTSIDE RECORDS SUMMARY | 2022-04-17 08:30 | XMS_ITS | Encounter Summary ---
:1945 Author Organization [facility] [place] [address] Care Team Providers Name Role Phone Angela Soetlo APRN Primary Care Provider Encounter Details Date Type Department Care Team Description 01/16/2014 Surgery Gastroenterology at [facility] Nohemi Jaimes, COLONOSCOPY, [facility] Jorge mcnamara MD POLYPE[place], [place] [address] [facility] ([facility] [phone] DR Cintron) GASTROENTEROLOGY DEPT. [place], [place] [address] Social History Tobacco Use Types [...] in this encounter Discharge Instructions Discharge InstructionsCorina Pagn RN - 01/16/2014 9:48 AM EDT Colonoscopy [...] you need to be checked. [facility] [phone] 8a-5p Same Day Endo [phone] 7a-8p Otherwise contact [phone] and ask to speak to the preflight inspector oncology nurse Follow up care is a [place] part [...] Operative Note Patient Name: Gregory Fatima : [id number] MR#: [id number] Case Date: 01/16/2014 Surgeon: Surgeon(s) and Role: * Nohemi Jaimes MD - Primary Preoperative diagnosis: 5 yr surv. Full procedure note is documented under the Procedure section of eDH. documented in this encounter Plan of Treatment Upcoming Encounters Date Type Specialty Care Team Description 05/28/2022 Appointment Cardiology Zulma Dolan MD [facility] [address] [place] [address] (Wo rk) 05/28/2022 Laboratory Appointment Lab 05/28/2022 Office Visit Cardiology Zulma Dolan MD [facility] [place] [address] Liz Poole PA [facility] [place] [address] 06/10/2022 Office Visit Dermatology Laura Scherer MD [facility] [address] [place] [id number] (Wo rk) documented as of this encounter [...] Surgical Pathology Report (01/16/2014 9:53 AM EDT) [employer] Method Time Signature Surgical CERNER Pathology ? [facility] Report ? Provider: ?? SHREE, NOHEMI Gonzalez ?Pt. Name: ?? MALICKA RT, GREGORY E ? Acc #: ?[id number] ?Pt. MRN: ?[id number] ? Col Date: ?? 4 ? /Sex: [...] City/State/ZIP Code Phon e Number [place] [phone]ITAL [address] RAKESH WALKER Specimen to [...] City/[facility]/[place] [address] CERNER MILLENNIUM Specimen to [...] MD PATHOLOGY/CYTOLOGY ORDERABLE S Performing Organization Address [facility] [place] [address] CERNER MILLENNIUM COLONOSCOPY (01/16/2014 7:25 AM EDT) [facility] gist Method Time Signature COLONOSCOPY [facility] [employer] Endoscopy Patient Name: Gregory Fatima ? Procedure Date: 01/16/2014 7:25 AM ? N: [id number] ? Date of : 1945 ? Age: 68 ? Order #: [id number] ? Procedure: ? Colonoscopy Indications: ? High [...] Laterality 01/16/2014 7:25 AM EDT Angela Sotelo AIRCRAFT CAPTAIN GENERAL SURGICAL ORDERABLES Performing Organization Address City/State/ZIP [...] Routine documented in this encounter Care Teams Gas Booster Engineer Relationship Specialty Start Date End Date Angela Sotelo APRN PCP - General 01/25/13 04/15/[address] [place] [address] documented as of this encounter
--- OUTSIDE RECORDS SUMMARY | 2022-04-17 08:30 | XMS_ITS | Encounter Summary ---
:1945 Author Organization [facility] [place] [address] Care Team Providers Name Role Phone Angela Holliday APRN Primary Care Provider Reason for Visit Reason Comments Benign Prostatic Hypertrophy Encounter Details Date Type Department Care Team Description 11/28/2013 Follow-Up Urology at [facility] Blade Smith, Urinary retention (Primary D x); [facility] BPH (benign prostatic hyperplasia) [place] [address] UROLOGY DEPT [place], [place] [address] (Wo rk) Social History Tobacco [...] Description 05/28/2022 Appointment Cardiology Zulma Doaln MD [facility] [address] [place], [place] [address] (Wo rk) 05/28/2022 Laboratory Appointment Lab 05/28/2022 Office Visit Cardiology Zulma Dolan MD [facility] [place] [address] Liz Poole PA [facility] [place] [address] 06/10/2022 Office Visit Dermatology Laura Scherer MD [facility] DR [address] [place], [place] [address] (Wo rk) documented as of [...] Organization Address City/State/[place] [address] CERNER MILLENNIUM documented in this encounter Visit Diagnoses Diagnosis Urinary retention - Primary Retention of urine, unspecified BPH (benign prostatic hyperplasia) Unspecified hyperplasia of prostate with out urinary obstruction and other lower urinary tract symptoms (LUTS) documented in this encounter Care Teams Protein Scientist Relationship Specialty Start Date End Date Angela Holliday APRN PCP - General 01/25/13 04/15/[address] [place] [address] documented as of this encounter
--- OUTSIDE RECORDS SUMMARY | 2022-04-17 08:30 | XMS_ITS | Encounter Summary ---
:1945 [place] [address] Care Team Providers Name Role Phone Lovely Vicente MD Primary Care Provider Reason for Visit Reason Onset Date Comments Other 12/09/2016 RESULTS Encounter Details Date Type Department Care Team Description 12/09/2016 Telephone Dermatology at [facility] Halima Cadet MD Other (RESULTS) [address] [facility] [place] [address] [facility] [phone] [place], [place] [address] (Wo rk) Social History Tobacco [...] EDT Spoke with patient's , Kisha (personal printing sales representative). I advised her Don's pathology [...] back. She can be reached back at [phone] documented in this encounter Plan of Treatment Upcoming Encounters Date Type Specialty Care Team Description 05/28/2022 Appointment Cardiology Zulma Dolan MD [facility] [address] [place], [place] [address] (Wo rk) 05/28/2022 Laboratory Appointment Lab 05/28/2022 Office Visit Cardiology Zulma Dolan MD [facility] [place] [address] Liz Poole PA [facility] [place] [address] 06/10/2022 Office Visit Dermatology Laura Scherer MD [facility] [address] [place], [place] [address] (Wo rk) documented as of this encounter Visit Diagnoses Not on filedocumented in this encounter Care Teams Workday Consultant Relationship Specialty Start Date End Date Lovely Vicente MD PCP - General 04/16/[address] [place] [address] documented as of this encounter
--- OUTSIDE RECORDS SUMMARY | 2022-04-17 08:30 | XMS_ITS | Encounter Summary ---
:1945 Author Organization [facility] [place] [address] Care Team Providers Name Role Phone Lovely Vicente MD Primary Care Provider Encounter Details Date Type Department Care Team Description 09/03/2016 Laboratory Appointment [place] [facility] [place] [address] Social History Tobacco Use Types Packs/Day Years [...] MD [facility] er [address] [place] [address] (Wo rk) 05/28/2022 Laboratory Appointment Lab 05/28/2022 Office Visit Cardiology Zulma Dolan MD [facility] [place] [address] Liz Poole PA [facility] [place] [address] 06/10/2022 Office Visit Dermatology Laura Scherer MD [facility] ER [address] [place], [place] [address] (Wo rk) documented as of [...] athologist Signature Thyroglobulin <0.4 <=54.9 [facility] ng/mL [facility] LABORATORY [...] than those obtained with T4 withdrawal protocol ([place] BR et al. J Clin Endo Metab 1999;84:4129-5212). Assay performed using the DPC Immulite T g immunometric assay. (lowest detection limit is <0.4 ng/ml). Thyroglob Ab <20.0 0.0 - 40.0 IU/mL [facility]ORAT[facility] Comment: Assay performed is [...] Address City/State/ZIP Code Phon e Number [address] TSH (09/03/2016 11:07 AM EST) P athologist Signature TSH 3.01 0.27 - 4.20 [facility] mcIU/mL [facility] LABORATORY Specimen Anatomical Collection Method Collection Time Receive d Time (Source) Location / / Volume Laterality Blood specimen 09/03/2016 11:07 7 (specimen) AM EST 11:22 AM EST Resulting Agency Comment Spec In Lab Luz Prescott MD CHEMISTRY ORDERABLES Performing Organization Address City/[facility]/ZIP [facility] [place] [address] documented in this encounter Visit Diagnoses Diagnosis Hx of papillary thyroid carcinoma Personal history of malignant neoplasm o f thyroid documented in this encounter Care Teams Gold Beater Relationship Specialty Start Date End Date Lovely Vicente MD PCP - General 04/16/15 [address] [place] [address] documented as of this encounter
--- OUTSIDE RECORDS SUMMARY | 2022-04-17 08:30 | XMS_ITS | Encounter Summary ---
:1945 [place] [address] Care Team Providers Name Role Phone Holley Hollidayica STACIE Primary Care Provider Encounter Details Date Type Department Care Team Description 03/28/2013 - [facility] 03/29/2013 Barbara Gomes MD Dx) [facility] DR Siddiqui [place] [address] [phone] Social History Tobacco Use Types Packs/Day Years [...] please call the General Surgery nurse at [phone], since this may mean that you need morecalcium. Follow-up Appointment: Will be scheduled with Dr. Mcknight in 6 weeks Date and time as well as any required labs will be mailed to you Please call [phone] to confirm date and time of your [...] by calcium supplementation. Phone number for questions: [phone] before 5 PM weekdays [phone] after 5 PM and on weekends/holidays Please follow up with Urology as per their recommendations for Bob removal AttachmentsThe following attachments cannot be sent through Care Everywhere. THYROIDECTOMY: WHAT TO EXPECT AT HOME (ETHIOPIAN)URINARY CATHETER CARE: AFTER YOUR VISIT (ETHIOPIAN)documented in this encounter Medications at Time of [...] is a 68 y.o. male presents to [facility] today for total thyroidectomy. See full [...] Willams MD - 03/28/2013 3:43 PM EDT [facility] Operative Note Patient Name: Gregory Fatima : [id number] MR#: [id number] Case Date: 03/28/2013 Surgeon: Surgeon(s) and Role: [...] patient was extubated and taken to the [facility] in stable condition. At the end [...] Operative Note Patient Name: Gregory Fatima : [id number] MR#: [id number] Case Date: 03/28/2013 Surgeon: Surgeon(s) and Role: [...] [facility] er Dr [place] [address] (Wo rk) 05/28/2022 Laboratory Appointment Lab 05/28/2022 Office Visit Cardiology Zulma Dolan MD [facility] INA [place]quin [address] Liz Poole PA [facility] [place] [address] 06/10/2022 Office Visit Dermatology Laura Scherer MD [facility] ER DR TEJA [address]MAT [place] [address] (Wo rk) documented as of this encounter [...] Organization Address City/State/[place] [address] CERNER MILLENNIUM (ABNORMAL) POCT [...] Organization Address City/[facility]/[place] [address] CERNER MILLENNIUM (ABNORMAL) POCT [...] Organization Address City/[facility]/ZIP Code Phon e Number [address] CERNER MILLENNIUM (ABNORMAL) POCT [...] Organization Address City/[facility]/ZIP Code Phon e Number [address] CERNER MILLENNIUM (ABNORMAL) POCT [...] Organization Address City/[facility]/ZIP Code Phon e Number [address] CERNER MILLENNIUM (ABNORMAL) POCT [...] Organization Address City/[facility]/ZIP Code Phon e Number [address] CERNER MILLENNIUM (ABNORMAL) POCT [...] Organization Address City/[facility]/ZIP Code Phon e Number [address] CERNER MILLENNIUM (ABNORMAL) POCT [...] Organization Address City/[facility]/ZIP Code Phon e Number [address] [facility] Specimen to Pathology (surgical or [...] Organization Address City/[facility]/ZIP Code Phon e Number [address] [facility] Pathology Addendum Report (03/28/2013 12:03 PM EDT) Component Value Ref Test Analysis Performed At [facility] gist Range Method Time Signature Addendum CERNER Report ? [facility] ? Provider: ?? MESHA MCKNIGHT Pt. Name: ?? GREGORY FATIMA ? Acc #: ?[id number] ?Pt. MRN: ?[id number] ? Col Date: ?? 03/28/2013 ?/Sex: ?1945,(68 [...] Organization Address City/State/[place] [address] [facility] Surgical Pathology Report (03/28/2013 12:03 PM EDT) Component Value Ref Test Analysis Performed At [facility] gist Range Method Time Signature Surgical [facility] Pathology ? [facility] Report ? Provider: ?? MESHA MCKNIGHT Pt. Name: ?? GREGORY FATIMA ? Acc #: ?[id number] ?Pt. MRN: ?[id number] ? Col Date: ?? 03/28/2013 ?/Sex: ?1945,(68 [...] areas of hemorrhage and ? calcifications. ? [facility] ? Provider: ?? MESHA MCKNIGHT Pt. Name: ?? GREGORY FATIMA ? Acc #: ?[id number] ?Pt. MRN: ?[id number] ? Col Date: ?? 03/28/2013 ?/Sex: ?1945,(68 years),Male ? Rec Date: ?? 03/28/2013 ?LOC: ?[facility] ? SURGICAL PATHOLOGY ? SECTIONS/PROCESSING: Mis Director sections are subm itted. (R6) ? [...] Organization Address City/State/[place] [address] CERNER MILLENNIUM Frozen Section Report (03/28/2013 12:03 PM EDT) Component Value Ref Test Analysis Performed At [facility] gist Range Method Time Signature Frozen CERNER Section ? [facility] Report ? Provider: ?? MESHA MCKNIGHT Pt. Name: ?? GREGORY FATIMA ? Acc #: ?[id number] ?Pt. MRN: ?[id number] ? Col Date: ?? 03/28/2013 ?/Sex: ?1945,(68 [...] Organization Address City/[facility]/[place] [address] CERNER MILLENNIUM POCT Glucose [...] Organization Address City/[facility]/ZIP Code Phon e Number [address] CERNER MILLENNIUM Specimen to [...] Organization Address City/[facility]/[place] [address] CERNER MILLENNIUM Antibody screen (03/28/2013 9:37 AM EDT) Analysis Performed At Patho logist Time Signature Ab Screen Negative CERNER Interp MILLENNIUM Expires at [id number] CERNER 638 on: MILLENNIUM Specimen Anatomical Collection Method Collection Time Receive d Time (Source) Location / / Volume Laterality Blood specimen 03/28/2013 9:37 AM 013 9:37 (specimen) EDT AM EDT Resulting Agency Comment Spec In Lab Mesha Mcknight MD BLOOD BANK ORDERABLES Performing Organization Address City/[facility]/[place] [address] [facility] GRISELDAENNIUM ABO/Rh Typing (03/28/2013 9:37 AM EDT) athologist Signature ABORh Type O Pos [facility] Specimen Anatomical Collection Method Collection Time Receive d Time (Source) Location / / Volume Laterality Blood specimen 03/28/2013 9:37 AM 013 9:37 (specimen) EDT AM EDT Resulting Agency Comment Spec In Lab Mesha Mcknight MD BLOOD BANK ORDERABLES Performing Organization Address City/[facility]/ZIP Code Phon e Number [address] [facility] Differential, Automated (03/28/2013 9:34 AM EDT) [...] City/State/ZIP Code Phon e Number [place] [id number]OSP[address] CERNER MILLENNIUM (ABNORMAL) Basic [...] intervals supplied above were not validated at [facility]. Results from pediatri c patients [...] Organization Address City/State/[place] [address] CERNER MILLENNIUM (ABNORMAL) CBC [...] 12.0 CERNER fL [facility] Specimen Anatomical Collection Method Collection Time Receive d Time (Source) Location / / Volume Laterality Blood specimen 03/28/2013 9:34 AM 013 9:38 (specimen) EDT AM EDT Resulting Agency Comment Spec In Lab Mesha Mcknight MD HEMATOLOGY ORDERABLES Performing Organization Address City/[facility]/ZIP Code Phon e Number [address] [facility] POCT Glucose (03/28/2013 9:17 AM EDT) athologist Signature POC Glucose 108 60 - 199 CERNER mg/dL [facility] [...] Organization Address City/[facility]/ZIP Code Phon e Number [address] [facility] Specimen to Pathology (surgical or derm) (03/28/2013 8:55 AM EDT) Specimen Anatomical Collection Method Collection Time Receive d Time (Source) Location / / Volume Laterality AP Specimen 03/28/2013 8:55 AM 3 8:54 EDT AM EDT Narrative [facility] GRISELDAENNIUM - 03/28/2013 8:55 AM E DT Specimen requisition ordered. ??Separate Pathology report to follow Mesha Mcknight MD PATHOLOGY/CYTOLOGY ORDERABLE S Performing Organization Address City/[facility]/ZIP Code Phon e Number [address] [facility] documented in this encounter Visit [...] RN) 0900 (Given - Provider: Radha Yao [facility], RN) 2.5 mg, Oral, [...] override documented in this encounter Care Teams A/C Tech Relationship Specialty Start Date End Date Angela Holliday APRN PCP - General 01/25/13 04/15/15 [address] [place] [address] documented as of this encounter
--- OUTSIDE RECORDS SUMMARY | 2022-04-17 08:30 | XMS_ITS | Encounter Summary ---
:1945 Author Organization [facility] [place] [address] Care Team Providers Name Role Phone MiyaLokeshAngela STACIE Primary Care Provider Encounter Details Date Type Department Care Team Description 01/16/2014 Hospital Encounter Gastroenterology at [facility] Nohemi Swann, [facility] [place] [address] [facility] [phone] [place] [facility]. [employer] [place], [place] [address] Social History Tobacco Use Types [...] you need to be checked. [facility] [phone] 8a-5p Same Day Endo [phone] 7a-8p Otherwise contact [phone] and ask to speak to the fishing guide software sales consultant Follow up care is a shelton [...] Swann MD - 01/16/2014 9:49 AM EDT [facility] Operative Note Patient Name: Gregory Fatima : [id number] MR#: [id number] Case Date: 01/16/2014 Surgeon: Surgeon(s) and Role: * Nohemi Swann MD - Primary Preoperative diagnosis: 5 yr surv. Full procedure note is documented under the Procedure section of eDH. documented in this encounter Plan of Treatment Upcoming Encounters Date Type Specialty Care Team Description 05/28/2022 Appointment Cardiology Zulma Dolan MD [facility] Dr [place], [place] [address] (Wo rk) 05/28/2022 Laboratory Appointment Lab 05/28/2022 Office Visit Cardiology Zulma Dolan MD [facility] [place] [address] Liz Poole PA [facility] [place] [address] 06/10/2022 Office Visit Dermatology Laura Scherer MD [facility] DR TEJA [address] [place], [place] [address] (Wo rk) documented as of this encounter [...] Surgical Pathology Report (01/16/2014 9:53 AM EDT) [facility] Method Time Signature Surgical CERNER Pathology ? [facility] Report ? Provider: ?? NOHEMI SWANN ?Pt. Name: ?? MALICKEliseo RT, GREGORY E ? Acc #: ?[id number] ?Pt. MRN: ?[id number] ? Col Date: ?? 4 ? /Sex: [...] Organization Address City/State/ZIP Code Phon e Number [place] [phone]OSPITAL [address] RAKESH WALKER Specimen to [...] Organization Address City/State/[place] [address] [facility] Specimen to Pathology (surgical or derm) [...] City/[facility]/[place] [address] CERNER MILLENNIUM COLONOSCOPY (01/16/2014 7:25 AM EDT) [facility] gist Method Time Signature COLONOSCOPY [facility] Endoscopy Patient Name: Gregory Fatima ? Procedure Date: 01/16/2014 7:25 AM ? N: [id number] ? Date of : 1945 ? Age: 68 ? Order #: [id number] ? Procedure: ? Colonoscopy Indications: ? High risk colon cancer surveillance : ? 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 dm on metformin with bs ~ 110 this ? am,s/p melanoma years ago, os a, ? goiter s/p surgery, [facility] Providers: ? Nohemi Swann MD, Blanca [...] Laterality 01/16/2014 7:25 AM EDT Angela Sotelo AUTOM[employer]BILE CLUB INFORMATION CLERK GENERAL SURGICAL ORDERABLES Performing Organization Address City/State/ZIP Code Phon e Number [employer] documented in this encounter Visit Diagnoses Not on filedocumented in this encounter Active and Recently Administered Medications Times are shown in EDT. PRN Medication Order 01/14/2014 01/15/2014 01/16/2014 meperidine (PF) (DEMEROL) 100 mg/mL carpuject (CANCELED) 0856 (Given - Provider: Blanca Samuel RN)0902 (Given - Provider: Blnaca Samuel, VAMSI)0911 (Given - Provider: Blanca Samuel, [...] documented in this encounter Care Teams Medical Center Representative Relationship Specialty Start Date End Date Angela Sotelo APRN PCP - General 01/25/13 04/15/[address] [place] [address] documented as of this encounter
--- OUTSIDE RECORDS SUMMARY | 2022-04-17 08:30 | XMS_ITS | Encounter Summary ---
:1945 Author Organization [place] [address] Care Team Providers Name Role Phone Lovely Vicente MD Primary Care Provider Reason for Visit Reason Onset Date Comments Referral 10/30/2015 Urgent referral for mac on SIMÓN CHAVIS Encounter Details Date Type Department Care Team Description 10/30/2015 Telephone Ophthalmology at [facility] C Jayson Ruiz Referral (Urgent [facility] MD Grabiel referral for mac on [facility] DR SIMÓN CHAVIS) [place] [address] OPHTHALMOLOGY DEPT. [phone] [place], [place] [address] (Wo rk) Social History Tobacco [...] Dolan MD [facility] [address] [place], [place] [address] (Wo rk) 05/28/2022 Laboratory Appointment Lab 05/28/2022 Office Visit Cardiology Zulma Dolan [place] [facility] [place] [address] Liz Poole PA [facility] [place] [address] 06/10/2022 Office Visit Dermatology Laura Scherer MD [facility] DR [address] [place], [place] [address] (Wo rk) documented as of this encounter Visit Diagnoses Not on filedocumented in this encounter Care Teams Sampling Theory Teacher Relationship Specialty Start Date End Date Lovely Vicente MD PCP - General 04/16/[address] [place], [place] [address] documented as of this encounter
--- OUTSIDE RECORDS SUMMARY | 2022-04-17 08:30 | XMS_ITS | Encounter Summary ---
:1945 Author Organization [facility] [place] [address] Care Team Providers Name Role Phone Miya Angela STACIE Primary Care Provider Encounter Details Date Type Department Care Team Description 04/24/2013 Telephone Urology at [facility] Zhen Bowman MD [facility] [place] [address] UROLOGY DEPT [phone] [place], [place] [address] (Wo rk) Social History Tobacco [...] Zulma Dolan MD [facility] [place], [place] [address] (Wo rk) 05/28/2022 Laboratory Appointment Lab 05/28/2022 Office Visit Cardiology Zulma Dolan MD [facility] [place] [address] Liz Poole PA [facility] [place] [address] 06/10/2022 Office Visit Dermatology Laura Scherer MD [facility] DR [address] [place], [place] [address] (Wo rk) documented as of this encounter Visit Diagnoses Not on filedocumented in this encounter Care Teams Rail Tractor Operator Relationship Specialty Start Date End Date Angela Holliday APRN PCP - General 01/25/13 04/15/[address] [place] [address] documented as of this encounter
--- OUTSIDE RECORDS SUMMARY | 2022-04-17 08:30 | XMS_ITS | Encounter Summary ---
:1945 Author Organization [facility] [place] [address] Care Team Providers Name Role Phone Lovely Vicente MD Primary Care Provider Reason for Visit Reason Comments Thyroid Cancer Encounter Details Date Type Department Care Team Description 06/05/2015 Office Visit Endocrinology at [facility] Albertina Prescott, History of papillary [facility] MD Luz adenocarcinoma of [facility] thyroid (Primary Dx) [place] [address] CENTER [phone] [place] [address] Social History Tobacco Use Types Packs/Day Years [...] the thyroid gland were obtained using a Guidekick ultrasound machine. All measurements are given as AP x Transverse x Longitudinal Right Lobe: Absent Left Lobe: Absent Isthmus: Absent Central/Lateral neck: no morphologically abnormal lymph nodes. Impression: No sonographic evidence of recurrence. LUZ PRESCOTT MD Installation And Service Technicianbarrel liner Section of Endocrinology [facility] Luz Prescott MD - 06/05/2015 8:21 AM [...] Drum (ACCU-CHEK COMPACT TEST) Strip by [facility].(Non-Drug; Combo Route) route 2 times daily. Yes [...] --f/u in 1 year LUZ PRESCOTT MD Installation And Service Technicianbarrel liner Section of Endocrinology [facility] documented in this encounter Miscellaneous Notes Addendum [...] MD [facility] [address], [place] [address] (Wo rk) 05/28/2022 Laboratory Appointment Lab 05/28/2022 Office Visit Cardiology Zulma Dolan MD [facility] [place] [address] Liz Poole PA [facility] [place] [address] 06/10/2022 Office Visit Dermatology Laura Scherer MD [facility] ER DR [address]-DERMAT [place], [place] [address] (Wo rk) documented as [...] BR et al. J Clin Endo Metab 1999;84:3822-7864). Assay performed using the DPC Immulite T [...] Address City/State/[place] [address] CERNER MILLENNIUM (ABNORMAL) TSH (06/05/2015 9:04 AM EST) P athologist Signature TSH 5.88 (H) 0.27 - 4.20 CERNER mcIU/mL MILLENNIUM Specimen Anatomical Collection Method Collection Time Receive d Time (Source) Location / / Volume Laterality Blood specimen 06/05/2015 9:04 AM 015 9:15 (specimen) EST AM EST Resulting Agency Comment Spec In Lab Luz Prescott MD CHEMISTRY ORDERABLES Performing Organization Address City/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
--- OUTSIDE RECORDS SUMMARY | 2022-04-17 08:30 | XMS_ITS | Encounter Summary ---
:1945 Author Organization [facility] [place] [address] Care Team Providers Name Role Phone Lovely Vicente MD Primary Care Provider Encounter Details Date Type Department Care Team Description 09/03/2016 Office Visit Endocrinology at [facility] Maria Ines St[facility] [place] [address] [place] [address] ENDOCRINOLOGY DEPT [place], [place] [address] Social History Tobacco Use Types [...] to his magnesium pill. LUZ PRESCOTT MD Sliver Chopperloom tuner Section of Endocrinology [facility] Luz Prescott MD [...] sonographic evidence of recurrence. LUZ PRESCOTT MD Sliver Chopperloom tuner Section of Endocrinology [facility] documented in this encounter Plan of Treatment Upcoming Encounters Date Type Specialty Care Team Description 05/28/2022 Appointment Cardiology Zulma Dolan MD [facility] Dr [place], [place] [address] (Wo rk) 05/28/2022 Laboratory Appointment Lab 05/28/2022 Office Visit Cardiology Zulma Dolan MD [facility] [place] [address] Liz Poole PA [facility] [place] [address] 06/10/2022 Office Visit Dermatology Laura Scherer MD [facility] DR TE[address]MAT [place], [place] [address] (Wo rk) documented as [...] not been established. Assay performed using the [employer] Immulite T g immunometric assay (lowest detection [...] Address City/[facility]/ZIP Code Phon e Number [address] TSH (09/07/2017 2:41 PM EST) athologist Signature TSH 3.93 0.27 - 4.[address] [facility] mlU/ML [facility] LABORATORY Specimen Anatomical Collection Method Collection Time Receive d Time (Source) Location / / Volume Laterality Blood specimen 09/07/2017 2:41 PM 018 2:46 (specimen) EST PM EST Resulting Agency Comment Spec In Lab Luz Prescott MD CHEMISTRY ORDERABLES Performing Organization Address City/[facility] Phon e Number [address] Thyroglobulin (09/03/2016 11:07 AM EST) athologist Signature Thyroglobulin <0.[address] [facility] ng/mL [facility] LABORATORY Comment: [...] than those obtained with T4 withdrawal protocol ([place] BR et al. J Clin Endo Metab 1999;84:6261-5611). Assay performed using the DPC Immulite T [...] Address City/[facility]/ZIP Code Phon e Number [address] TSH (09/03/2016 11:07 AM EST) P athologist Signature TSH 3.01 0.27 - 4.20 [facility] mcIU/mL [facility] LABORATORY Specimen Anatomical Collection Method Collection Time Receive d Time (Source) Location / / Volume Laterality Blood specimen 09/03/2016 11:07 7 (specimen) AM EST 11:22 AM EST Resulting Agency Comment Spec In Lab Luz Prescott MD CHEMISTRY ORDERABLES Performing Organization Address City/[facility]/ZIP [place] [address] documented in this encounter Visit Diagnoses Diagnosis Hx of papillary thyroid carcinoma Personal history of malignant neoplasm o f thyroid documented in this encounter Care Teams Finisher Card Tender Relationship Specialty Start Date End Date Lovely Vicente MD PCP - General 04/16/[address] [place] [address] documented as of this encounter
--- OUTSIDE RECORDS SUMMARY | 2022-04-17 08:30 | XMS_ITS | Encounter Summary ---
:1945 Author Organization [facility] [place] [address] Care Team Providers Name Role Phone Angela Holliday APRN Primary Care Provider Reason for Visit Reason Comments Other Encounter Details Date Type Department Care Team Description 08/01/2013 Telephone Dermatology at [facility] Rigoberto Garcia III, [address] [place] [address] [facility] [phone] TEJA MARIE-DERMAT [place], [place] [address] (Wo rk) Social History [...] them. Component Value Surgical Pathology Final Report [facility] Provider: RIGOBERTO GARCIA III Pt. Name: DON HOANG Acc #: [id number] Pt. Col Date: 07/31/2013 /Sex: 1945,(68 years),Male Rec Date: 07/31/2013 LOC: [facility] SURGICAL PATHOLOGY ---Pathologic Diagnosis--- Skin, right abdomen, [...] Zulma Dolan MD [facility] [place], [place] [address] (Wo lissa) 05/28/2022 Laboratory Appointment Lab 05/28/2022 Office Visit Cardiology Zulma Dolan MD [facility] [place] [id number] Liz Poole PA [facility] [place] [address] 06/10/2022 Office Visit Dermatology Laura Scherer MD [facility] [address] TEJA MARIE-DERMAT [place], [place] [address] (Wo rk) documented as of this encounter Visit Diagnoses Not on filedocumented in this encounter Care Teams Corduroy Brusher Operator Relationship Specialty Start Date End Date Angela Holliday APRN PCP - General 01/25/13 04/15/[address] [place] [address] documented as of this encounter
--- OUTSIDE RECORDS SUMMARY | 2022-04-17 08:30 | XMS_ITS | Encounter Summary ---
:1945 Author Organization [facility] [place] [address] Care Team Providers Name Role Phone MiyaAngela STACIE Primary Care Provider Reason for Visit Reason Comments Urinary Retention Encounter Details Date Type Department Care Team Description 05/16/2013 Follow-Up Urology at [facility] Blade Smith, Retention of urine [facility] (Primary Dx) [place] [address] UROLOGY DEPT [place] [id number] (Wo rk) Social History Tobacco Use Types [...] Zulma Dolan MD [facility] [address] [place], [place] [address] (Wo rk) 05/28/2022 Laboratory Appointment Lab 05/28/2022 Office Visit Cardiology Zulma Dolan MD [facility] [place] [address] Liz Poole PA [facility] [place] [address] 06/10/2022 Office Visit Dermatology Laura Scherer MD [facility] DR TEJA GR-DERMAT [place], [place] [address] (Wo rk) documented as of this encounter Visit Diagnoses Diagnosis 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
--- OUTSIDE RECORDS SUMMARY | 2022-04-17 08:30 | XMS_ITS | Encounter Summary ---
:1945 Author Organization [facility] [place] [address] Care Team Providers Name Role Phone Lovely Vicente MD Primary Care Provider Reason for Visit Reason Comments Skin Check Encounter Details Date Type Department Care Team Description 04/16/2015 Follow-Up Dermatology at Rigoberto Forman x of melanoma of skin; Abdelrahman HOOPER MD Multiple benign nevi [address] [place] [address] [facility] [place], [place] [address] (Wo rk) Social History Tobacco [...] (ACCU-CHEK COMPACT TEST) Strip [place] [facility]Non- Drug; Combo Route) route 2 times daily. [...] Zulma Dolan MD [facility] [place], [place] [address] (Wo rk) 05/28/2022 Laboratory Appointment Lab 05/28/2022 Office Visit Cardiology Zulma Dolan MD [facility] [place] [address] Liz Poole PA [facility] [place] [address] 06/10/2022 Office Visit Dermatology Laura Scherre MD [facility] DR TEJA GR-DERMAT [place], [place] [address] (Wo rk) documented as of this encounter Visit Diagnoses Diagnosis Hx of melanoma of skin Personal history of malignant melanoma o f skin Multiple benign nevi Benign neoplasm of skin, site unspecifie d documented in this encounter Care Teams Commercial Relief Driver Relationship Specialty Start Date End Date Lovely Vicente MD PCP - General 04/16/[address] [place] [address] [address] [place] [address] documented as of this encounter
--- OUTSIDE RECORDS SUMMARY | 2022-04-17 08:30 | XMS_ITS | Encounter Summary ---
:1945 Author Organization [facility] [place] [address] Care Team Providers Name Role Phone Lovely Vicente MD Primary Care Provider Encounter Details Date Type Department Care Team Description 07/10/2016 Telephone Dermatology at [facility] Rigoberto White III, [address] [place] [address] [facility] [phone] [facility] MAR[facility]DERMAT [place], [place] [address] (Wo rk) Social History Tobacco [...] Zulma Dolan MD [facility] [address] [place], [place] [address] (Wo rk) 05/28/2022 Laboratory Appointment Lab 05/28/2022 Office Visit Cardiology Zulma Dolan MD [facility] [place] [address] Liz Poole PA [facility] [place] [address] 06/10/2022 Office Visit Dermatology Laura Scherer MD [facility] DR TEJA MARIE-DERMAT [place], [place] [address] (Wo rk) documented as of this encounter Visit Diagnoses Not on filedocumented in this encounter Care Teams Cage Operator Relationship Specialty Start Date End Date Lovely Vicente MD PCP - General 04/16/15 [facility] [address] [place] [address] documented as of this encounter
--- OUTSIDE RECORDS SUMMARY | 2022-04-17 08:30 | XMS_ITS | Encounter Summary ---
:1945 Author Organization [facility] [place] [address] Care Team Providers Name Role Phone Lovely Vicente MD Primary Care Provider Reason for Visit Reason Comments Nevus excision dysplastic nevus mi d upper abdomen Encounter Details Date Type Department Care Team Description 12/03/2016 Procedure visit Dermatology at Halima Dubois Dysplastic nevus of Road MD Adrián trunk [address] [facility] [address] [facility] [phone] RD-DERMATOLGY [place] [address] Social History Tobacco Use Types Packs/Day Years [...] Halima Cordero MD during the day at [phone] Nurse: Mira [phone] Amy After 5 PM and on weekends, please call the hospital number , and ask for the Cylinder Machine Operator Pulp Drier international marketing executive. documented in this encounter Progress Notes Halima Cordero MD - 12/10/2016 5:41 PM EDT Gwendolyn, Excision shows scar, there is no residual of the severely dysplastic nevus. Please notify patient and check on wound healing. Thank you, DTB Halima Cordero MD - 12/03/2016 3:00 PM EDT Images from the original note were not included. Dermatology Procedure note: Attending: Halima Cordero MD Hand Glove Cleaner: Mira James LPN Referring MD: Rigoberto Garcia [...] to call the clinic or the on-call green chainer over the weekend. ??? Name of Procedure? [...] MD [facility] [place], [place] [address] (Wo rk) 05/28/2022 Laboratory Appointment Lab 05/28/2022 Office Visit Cardiology Zulma Dolan MD [facility] [place] [address] Liz Poole PA [facility] [place] [address] 06/10/2022 Office Visit Dermatology Laura Scherer MD [facility] DR TEJA GR-DERMAT [place], [place] [address] (Wo rk) documented as of [...] Component Value Ref Test Analysis Performed At [facility] Method Time Signature Surgical [id number] ?Location: [facility] The signing pathologist has (i) examined [...] Clinical Diagnosis: Dysplastic nevus, see previous pathology [id number] SPECIMEN PROCESSING A - Labeled/Fixative: Mid-upper abdomen, [...] Address City/State/[place] [address] Specimen to Pathology (NON-OR) (12/03/2016 3:31 PM EDT) Specimen Anatomical Collection Method Collection Time Receive d Time (Source) Location / / Volume Laterality AP Specimen 12/03/2016 3:31 PM 7 6:27 EDT PM EDT Narrative [facility] - 12/03/2016 6:27 PM EDT Specimen requisition ordered. ??Separate Pathology report to follow Resulting Agency Comment Spec In Lab Halima Cordero MD PATHOLOGY/CYTOLOGY ORDERABLE S Performing Organization Address City/State/[place] [address] documented in this encounter Visit Diagnoses Diagnosis Dysplastic nevus of trunk Benign neoplasm of skin of trunk, except scrotum documented in this encounter Care Teams Drilling Machine Operator Relationship Specialty Start Date End Date Lovely Vicente MD PCP - General 04/16/[address] [place] [address] documented as of this encounter
--- OUTSIDE RECORDS SUMMARY | 2022-04-17 08:30 | XMS_ITS | Encounter Summary ---
:1945 Author Organization [facility] Address [place] [address] Care Team Providers Name Role Phone Lovely Vicente MD Primary Care Provider Reason for Visit Reason Comments Skin Check Encounter Details Date Type Department Care Team Description 11/05/2015 Office Visit Dermatology at Rigoberto Forman benign nevi; Abdelrahman HOOPER MD Lentigines; [address] [facility] History of melanoma; [place] [address] Skin exam for malignant neoplasm [phone] [facility]-DER[facility] [place], [place] [address] Social History Tobacco Use Types [...] Diagnostic, Drum (ACCU-CHEK COMPACT TEST) Strip by [facility].(Non- Drug; Combo Route) route [...] the presence of Dr. Garcia.: GINNY CHRISTIANSEN ANNEALING OVEN OPERATOR and Judit Cruz, Clinical Scribe I performed the above scribed service and agree with the accuracy of the documentation in this encounter. Rigoberto Garcia MD Section of Dermatology [facility] documented in this encounter Plan of Treatment Upcoming Encounters Date Type Specialty Care Team Description 05/28/2022 Appointment Cardiology Zulma Dolan MD [facility] [place], [place] [address] (Wo rk) 05/28/2022 Laboratory Appointment Lab 05/28/2022 Office Visit Cardiology [place]ul[place] [id number] Liz Poole PA [facility] [place] [address] 06/10/2022 Office Visit Dermatology Laura Scherer MD [facility] DR TEJA GR-DERMAT [place], [place] [address] (Wo rk) documented as of this encounter Visit Diagnoses Diagnosis Multiple benign nevi Benign neoplasm of skin, site unspecifie d Lentigines Other dyschromia History of melanoma Personal history of malignant melanoma o f skin Skin exam for malignant neoplasm Screening for malignant neoplasm of the skin documented in this encounter Care Teams Continuous Drier Operator Relationship Specialty Start Date End Date Lovely Vicente MD PCP - General 04/16/15 [facility] [address] [place] [address] (work) documented as of this encounter
--- OUTSIDE RECORDS SUMMARY | 2022-04-17 08:30 | XMS_ITS | Encounter Summary ---
:1945 Author Organization [facility] [place] [address] Care Team Providers Name Role Phone Lovely Vicente MD Primary Care Provider Reason for Visit Reason Onset Date Comments Pre Procedure Call 12/02/2016 Encounter Details Date Type Department Care Team Description 12/02/[address] [facility] Mira James LPN Pre Procedure Call [address] [place] [address] Social History Tobacco Use Types Packs/Day [...] Zulma Dolan MD [facility] [place], [place] [address] (Wo lissa) 05/28/2022 Laboratory Appointment Lab 05/28/2022 Office Visit Cardiology Zulma Dolan MD [facility] [place] [address] Liz Poole PA [facility] [place] [address] 06/10/2022 Office Visit Dermatology Laura Scherer MD [facility] DR TEJA GR-DERMAT [place], [place] [address] (Wo rk) documented as of this encounter Visit Diagnoses Not on filedocumented in this encounter Care Teams Senior Advisor Relationship Specialty Start Date End Date Lovely Vicente MD PCP - General 04/16/[address] [place] [address] documented as of this encounter
--- OUTSIDE RECORDS SUMMARY | 2022-04-17 08:30 | XMS_ITS | Encounter Summary ---
:1945 Author Organization [place] [address] Care Team Providers Name Role Phone Angela Holliday APRN Primary Care Provider Encounter Details Date Type Department Care Team Description 03/30/2013 Telephone General Surgery at [facility] Cliff Nevarez, [place] [address] Social History Tobacco Use Types Packs/Day [...] MD [facility] er [place], [place] [address] (Wo rk) 05/28/2022 Laboratory Appointment Lab 05/28/2022 Office Visit Cardiology Zulma Dolan MD [facility] [place] [address] Liz Poole PA [facility] [place] [address] 06/10/2022 Office Visit Dermatology Laura Scherer MD [facility] DR TEJA GR-DERMAT [place], [place] [address] (Wo rk) documented as of this encounter Visit Diagnoses Not on filedocumented in this encounter Care Teams Demurrage Man Relationship Specialty Start Date End Date Angela Holliday APRN PCP - General 01/25/13 04/15/[address] [place] [address] documented as of this encounter
--- OUTSIDE RECORDS SUMMARY | 2022-04-17 08:30 | XMS_ITS | Encounter Summary ---
:1945 Author Organization [place] [address] Care Team Providers Name Role Phone Lovely Vicente MD Primary Care Provider Reason for Visit Reason Comments Skin Lesion Encounter Details Date Type Department Care Team Description 11/24/2016 [facility] of uncertain behavior of skin; Road IIIMD Pigmented skin lesion of uncertain natur e; [address] [facility] [place] of [place] [address] [facility] SIMÓN-DERMATOLGY [place], [place] [address] Social History Tobacco Use [...] or concerns, please call the office at [phone]. If it is after 5PM, or a holiday or weekend, please call [phone] and ask for the Sugar Presser on-call. documented in this encounter Progress Notes [...] 71 y.o. year old male.Established patient of [employer]. Last seen 06/05/16. Here today for new [...] Zulma Dolan MD [facility] er [place] [address] (Wo rk) 05/28/2022 Laboratory Appointment Lab 05/28/2022 Office Visit Cardiology Zulma Dolan MD [facility] [place] [address] Liz Poole PA [facility] [place] [address] 06/10/2022 Office Visit Dermatology Laura Scherer MD [facility] ER DR [address]-DERMAT [place], [place] [address] (Wo rk) documented [...] Test Analysis Performed At [facility] gist Range Method Time Signature Surgical [id number] ?Location: [facility] Report The signing pathologist has (i) [...] Organization Address City/State/[place] [address] Specimen to Pathology (NON-OR) (11/24/2016 8:28 AM EDT) Specimen Anatomical Collection Method Collection Time Receive d Time (Source) Location / / Volume Laterality AP Specimen 11/24/2016 8:28 AM 7 9:29 EDT AM EDT Narrative [facility] - 11/24/2016 9:29 AM EDT Specimen requisition ordered. ??Separate Pathology report to follow Resulting Agency Comment Spec In Lab Rigoberto Garcia III, MD PATHOLOGY/CYTOLOGY ORDERABLE S Performing Organization Address City/State/[place] [address] documented in this encounter Visit Diagnoses Diagnosis Neoplasm of uncertain behavior of skin Pigmented skin lesion of uncertain natur e History of melanoma Personal history of malignant melanoma o f skin documented in this encounter Care Teams Lepidopterist Relationship Specialty Start Date End Date Lovely Vicente MD PCP - General 04/16/[address] [place] [address] documented as of this encounter
--- OUTSIDE RECORDS SUMMARY | 2022-04-17 08:30 | XMS_ITS | Encounter Summary ---
:1945 Author Organization [facility] [place] [address] Care Team Providers Name Role Phone Lovely Vicente MD Primary Care Provider Reason for Visit Reason Comments Medication Refill Encounter Details Date Type Department Care Team Description 05/10/2015 Refill Endocrinology at [facility] Rosalind Covarrubias, [facility] [place] [address] [facility] [phone] ENDOCRINOLOGY [place], [place] [address] (Wo rk) Social History Tobacco [...] Dolan MD [facility] er [address] [place], [place] [address] (Wo rk) 05/28/2022 Laboratory Appointment Lab 05/28/2022 Office Visit Cardiology Zulma Dolan MD [facility] [place] [address] Liz Poole PA [facility] [place] [address] 06/10/2022 Office Visit Dermatology Laura Scherer MD [facility] ER DR TEJA GR-DERMAT [place], [place] [address] (Wo rk) documented as of this encounter Visit Diagnoses Not on filedocumented in this encounter Care Teams Endband Cutter Hand Relationship Specialty Start Date End Date Lovely Vicente MD PCP - General 04/16/[address] [place] [address] documented as of this encounter
--- OUTSIDE RECORDS SUMMARY | 2022-04-17 08:30 | XMS_ITS | Encounter Summary ---
:1945 Author Organization [facility] [place] [address] Care Team Providers Name Role Phone MiyaLokeshAngela STACIE Primary Care Provider Reason for Visit Reason Onset Date Comments Post-op Problem 04/05/2013 voiding trial Encounter Details Date Type Department Care Team Description 04/05/2013 Telephone Urology at [facility] Blade Smith, Post-op Problem [facility] (voiding trial) [place] [address] UROLOGY DEPT [place] [address] (Wo rk) Social History Tobacco Use Types [...] Zulma Dolan MD [facility] Dr [place], [place] [address] (Wo rk) 05/28/2022 Laboratory Appointment Lab 05/28/2022 Office Visit Cardiology Zulma Dolan MD [facility] [place] [address] Liz Poole PA [facility] [place] [address] 06/10/2022 Office Visit Dermatology Laura Scherer MD [facility] DR TEJA GR-DERMAT [place], [place] [address] (Wo rk) documented as of this encounter Visit Diagnoses Not on filedocumented in this encounter Care Teams Bilingual Hr Generalist Relationship Specialty Start Date End Date Angela Holliday APRN PCP - General 01/25/13 04/15/[address] [place] [address] documented as of this encounter
--- OUTSIDE RECORDS SUMMARY | 2022-04-17 08:30 | XMS_ITS | Encounter Summary ---
:1945 Author Organization [facility] [place] [address] Care Team Providers Name Role Phone MiyaLokeshAngela STACIE Primary Care Provider Encounter Details Date Type Department Care Team Description 04/04/2013 Orders Only General Surgery at Manny Mcknight thyroid [facility] MD Eliseo carcinoma (Primary Dx) [facility] [place] [address] GENERAL SURGERY [phone] [place], [place] [address] Social History Tobacco Use Types [...] MD [facility] er [place], [place] [address] (Wo rk) 05/28/2022 Laboratory Appointment Lab 05/28/2022 Office Visit Cardiology Zulma Dolan MD [facility] [address] Liz Poole PA [facility] [place] [address] 06/10/2022 Office Visit Dermatology Laura Scherer MD [facility] DR TEJA RG-DERMAT [place], [place] [address] (Wo rk) documented as of this encounter Visit Diagnoses Diagnosis Papillary thyroid carcinoma - Primary Malignant neoplasm of thyroid gland documented in this encounter Care Teams Fructose Loader Relationship Specialty Start Date End Date Angela Holliday APRN PCP - General 01/25/13 04/15/[address] [place] [address] documented as of this encounter
--- OUTSIDE RECORDS SUMMARY | 2022-04-17 08:30 | XMS_ITS | Encounter Summary ---
:1945 Author Organization [facility] [place] [address] Care Team Providers Name Role Phone Angela Holliday STACIE Primary Care Provider Encounter Details Date Type Department Care Team Description 04/04/2013 Telephone Urology at [facility] Parker Sanchez MD [facility] [place] [address] UROLOGY DEPT [phone] [place], [place] [address] (Wo rk) Social History Tobacco [...] Dolan MD [facility] Dr [place], [place] [address] (Wo rk) 05/28/2022 Laboratory Appointment Lab 05/28/2022 Office Visit Cardiology Zulma Dolan MD [facility] [place] [address] Liz Poole PA [facility] [place] [address] 06/10/2022 Office Visit Dermatology Laura Scherer MD [facility] [address] TEJA GR-DERMAT [place], [place] [address] (Wo rk) documented as of this encounter Visit Diagnoses Not on filedocumented in this encounter Care Teams Testing Director Relationship Specialty Start Date End Date Angela Holliday APRN PCP - General 01/25/13 04/15/[address] [place] [address] documented as of this encounter
--- OUTSIDE RECORDS SUMMARY | 2022-04-17 08:30 | XMS_ITS | Encounter Summary ---
:1945 Author Organization [facility] [place] [address] Care Team Providers Name Role Phone MiyaAngela STACIE Primary Care Provider Reason for Visit Reason Onset Date Comments Advice Only 03/31/2013 Encounter Details Date Type Department Care Team Description 03/31/2013 Telephone Urology at [facility] Daniele Trejo III, MD Advice Only [facility] [place] [address] [place] [id number] [phone] (Wo rk) Social History Tobacco Use Types [...] Cardiology Zulma Dolan MD [facility] [place], [place] [address] (Wo rk) 05/28/2022 Laboratory Appointment Lab 05/28/2022 Office Visit Cardiology Zulma Dolan MD [facility] [place] [address] Liz Poole PA [facility] [place] [address] 06/10/2022 Office Visit Dermatology Laura Scherer MD [facility] DR TEJA GR-DERMAT [place], [place] [address] (Wo rk) documented as of this encounter Visit Diagnoses Not on filedocumented in this encounter Care Teams Roll Capper Relationship Specialty Start Date End Date Angela Holliday APRN PCP - General 01/25/13 04/15/[address] [place] [address] documented as of this encounter
--- OUTSIDE RECORDS SUMMARY | 2022-04-17 08:31 | XMS_ITS | Encounter Summary ---
:1945 [place] [address] Care Team Providers Name Role Phone MiyaLokeshAngela STACIE Primary Care Provider Encounter Details Date Type Department Care Team Description 03/28/2013 Anesthesia Event Main Operating Room Meredith Calvert MD [facility] [place] [address] [facility] Nolvia Riojas PA [facility] [place] [address] [place] [address] Anesthesia Record Procedure Summary Procedure Name [...] Zulma Dolan MD [facility] [place], [place] [address] (Wo rk) 05/28/2022 Laboratory Appointment Lab 05/28/2022 Office Visit Cardiology Zulma Dolan MD [facility] [place] [address] Liz Poole PA [facility] [place] [address] 06/10/2022 Office Visit Dermatology Laura Scherer MD [facility] [address] TEJA GR-DERMAT [place], [place] [address] (Wo rk) documented as [...] documented in this encounter Care Teams Dye House Worker Relationship Specialty Start Date End Date Angela Holliday APRN PCP - General 01/25/13 04/15/[address] [place] [address] documented as of this encounter
--- OUTSIDE RECORDS SUMMARY | 2022-04-17 08:31 | XMS_ITS | Encounter Summary ---
:1945 Author Organization [facility] [place] [address] Care Team Providers Name Role Phone Brody Berrios MD Primary Care Provider Reason for Visit Reason Comments Annual Exam Encounter Details Date Type Department Care Team Description 09/22/2011 Follow-Up Dermatology Arik Tipton Psoriasis (Primary Dx); [facility] MD Jorge Personal history of other malignant neop lasm of skin Drive [place] [id number] DERMATOLOGY DEPT . [place] [address] (Wo rk) Social History Tobacco Use Types [...] Arik Tipton MD Section of Dermatology [facility] documented in this encounter Plan of Treatment Upcoming Encounters Date Type Specialty Care Team Description 05/28/2022 Appointment Cardiology Zulma Dolan MD [facility] [address] [place], [place] [address] (Wo rk) 05/28/2022 Laboratory Appointment Lab 05/28/2022 Office Visit Cardiology Zulma Dolan MD [facility] [place] [address] Liz Poole PA [facility] [place] [address] 06/10/2022 Office Visit Dermatology Laura Scherer MD [facility] DR [address]-DERMAT [place]LOGY [place], [place] 0[address] (Wo rk) documented as of this encounter Visit Diagnoses Diagnosis Psoriasis - Primary Other psoriasis Personal history of other malignant neop lasm of skin documented in this encounter Care Teams Band Presser Relationship Specialty Start Date End Date Brody Berrios MD PCP - General 09/22/11 10/03/[address] [place] [address] documented as of this encounter
--- OUTSIDE RECORDS SUMMARY | 2022-04-17 08:31 | XMS_ITS | Encounter Summary ---
:1945 Author Organization [facility] [place] [address] Care Team Providers Name Role Phone Angela Holliday APRN Primary Care Provider Encounter Details Date Type Department Care Team Description 03/15/2013 Telephone General Surgery at [facility] Maddison Key, [place] [address] Social History Tobacco Use Types Packs/Day [...] Cardiology Zulma Dolan MD [facility] [place], [place] [address] (Wo rk) 05/28/2022 Laboratory Appointment Lab 05/28/2022 Office Visit Cardiology Zulma Dolan MD [facility] [place] [address] Liz Poole PA [facility] [place] [address] 06/10/2022 Office Visit Dermatology Laura Scherer MD [facility] [address] TEJA GR-DERMAT [place], [place] [address] (Wo rk) documented as of this encounter Visit Diagnoses Not on filedocumented in this encounter Care Teams Boiler Plant Worker Relationship Specialty Start Date End Date Angela Holliday APRN PCP - General 01/25/13 04/15/[address] [place] [address] documented as of this encounter
--- OUTSIDE RECORDS SUMMARY | 2022-04-17 08:31 | XMS_ITS | Encounter Summary ---
:1945 Author Organization [facility] [place] [address] Care Team Providers Name Role Phone Angela Holliday APRN Primary Care Provider Reason for Referral Surgical (Routine) - Closed Specialty Diagnoses / Procedures Referred By Contact Refer red To Contact General Surgery Diagnoses Elijah Villagomez MD Colacchio, Thomas A, MD [address] [place] [address] [place] [address] [place] [address] Phone: Fax: Referral ID Status Reason Start Date Expiration Date Visits V isits Requested Authorized [id number] Closed Specialty 01/25/2013 07/24/2013 1 1 Service Requested Reason for Visit Reason Comments Thyroid Problem Encounter Details Date Type Department Care Team Description 01/25/2013 Office Visit Endocrinology at [facility] Elijah Fuentes Goiter (Primary Dx) [facility] [address] [place] [address] [place] [address] [phone] Social History Tobacco Use Types Packs/Day Years [...] History 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 All [...] the thyroid gland were obtained using a SonLogue Transportaxx and an HFL38/13-6 broadband linear array transducer. [...] Zulma Dolan MD [facility] [place], [place] [address] (Wo rk) 05/28/2022 Laboratory Appointment Lab 05/28/2022 Office Visit Cardiology Zulma Dolan MD [facility] [place] [address] Liz Poole PA [facility] [place] [address] 06/10/2022 Office Visit Dermatology Laura Scherer MD [facility] DR TEJA [address]MAT [place], [place] 0[address] (Wo rk) Scheduled Referrals Name [...] Organization Address City/State/[place] [address] CERNER MILLENNIUM documented in this encounter Visit Diagnoses Diagnosis Goiter - Primary Goiter, unspecified documented in this encounter Care Teams Tool And Machine Maintainer Relationship Specialty Start Date End Date Angela Holliday APRN PCP - General 01/25/13 04/15/[address] [place] [address] documented as of this encounter
--- OUTSIDE RECORDS SUMMARY | 2022-04-17 08:31 | XMS_ITS | Encounter Summary ---
:1945 Author Organization [facility] [place] [address] Care Team Providers Name Role Phone Unknown Primary Care Provider Unavailable Reason for Visit Reason Comments Other Encounter Details Date Type Department Care Team Description 10/05/2012 Telephone Dermatology at [facility] Rigoberto Garcia III, [address] [place] [address] [facility] [phone] TEJA MARIE-DERMAT [place] [address] (Wo rk) Social History Tobacco Use Types [...] Zulma Dolan MD [facility] [place], [place] [address] (Wo rk) 05/28/2022 Laboratory Appointment Lab 05/28/2022 Office Visit Cardiology Zulma Dolan MD [facility] [place] [address] Liz Poole PA [facility] [place] [address] 06/10/2022 Office Visit Dermatology Laura Scherer MD [facility] DR TEJA MARIE-DERMAT [place], [place] 0[address] (Wo rk) documented as of this encounter Visit Diagnoses Not on filedocumented in this encounter Care Teams Color Consultant Relationship Specialty Start Date End Date Unknown PCP - General 10/04/12 01/24/13 None documented as of this encounter
--- OUTSIDE RECORDS SUMMARY | 2022-04-17 08:31 | XMS_ITS | Encounter Summary ---
:1945 Author Organization [facility] [place] [address] Care Team Providers Name Role Phone Angela Holliday APRN Primary Care Provider Encounter Details Date Type Department Care Team Description 03/28/2013 Surgery Main Operating Room Mesha Mcknight, THYROIDECTOMY, TOTAL OR [facility] COMPLETE (WRVU 15.04) [facility] DR Siddiqui [place] [address] [place] [address] [phone] (Wo rk) Social History Tobacco Use Types [...] please call the General Surgery nurse at [phone], since this may mean that you need morecalcium. Follow-up Appointment: Will be scheduled with Dr. Mcknight in 6 weeks Date and time as well as any required labs will be mailed to you Please call [phone] to confirm date and time of your [...] by calcium supplementation. Phone number for questions: [phone] before 5 PM weekdays [phone] after 5 PM and on weekends/holidays Please [...] is a 68 y.o. male presents to [facility] today for total thyroidectomy. See [...] Willams MD - 03/28/2013 3:43 PM EDT [facility] Operative Note Patient Name: Gregory Fatima : [id number] MR#: [id number] Case Date: 03/28/2013 Surgeon: Surgeon(s) and Role: [...] patient was extubated and taken to the [facility] in stable condition. At the [...] Operative Note Patient Name: Gregory Fatima : [id number] MR#: [id number] Case Date: 03/28/2013 Surgeon: Surgeon(s) and Role: [...] Description 05/28/2022 Appointment Cardiology Zluma Dolan MD [facility] er Dr [place] [address] (Wo rk) 05/28/2022 Laboratory Appointment Lab 05/28/2022 Office Visit Cardiology Zulma Dolan MD [facility] [place] [address] Liz Poole PA [facility] [place] [address] 06/10/2022 Office Visit Dermatology Laura Scherer MD [facility] ER DR TEJA GR-DERMAT [place] [address] (Wo rk) documented as of this encounter [...] [place] [address] CERNER MILLENNIUM (ABNORMAL) POCT [...] [facility]/[place] [address] CERNER MILLENNIUM (ABNORMAL) POCT [...] [facility]/ZIP Code Phon e Number [address] CERNER MILLENNIUM (ABNORMAL) [...] [facility]/ZIP Code Phon e Number [address] CERNER MILLENNIUM (ABNORMAL) [...] [facility]/ZIP Code Phon e Number [address] CERNER MILLENNIUM (ABNORMAL) [...] [facility]/ZIP Code Phon e Number [address] CERNER MILLENNIUM (ABNORMAL) [...] [facility]/ZIP Code Phon e Number [address] CERNER MILLENNIUM (ABNORMAL) [...] [facility]/ZIP Code Phon e Number [address] [facility] Specimen to Pathology (surgical or [...] [facility]/ZIP Code Phon e Number [address] [facility] Pathology Addendum Report (03/28/2013 12:03 PM EDT) Component Value Ref Test Analysis Performed At [facility] gist Range Method Time Signature Addendum CERNER Report ? [facility] ? Provider: ?? MESHA MCKNIGHT Pt. Name: ?? GREGORY FATIMA ? Acc #: ?[id number] ?Pt. MRN: ?[id number] ? Col Date: ?? 03/28/2013 ?/Sex: ?1945,(68 [...] Address City/State/[place] [address] [facility] Surgical Pathology Report (03/28/2013 12:03 PM EDT) Component Value Ref Test Analysis Performed At [facility] gist Range Method Time Signature Surgical [facility] Pathology ? [facility] Report ? Provider: ?? MESHA MCKNIGHT Pt. Name: ?? GREGORY FATIMA ? Acc #: ?[id number] ?Pt. MRN: ?[id number] ? Col Date: ?? 03/28/2013 ?/Sex: ?1945,(68 [...] Name: ?? GREGORY FATIMA ? Acc #: ?[id number] ?Pt. MRN: ?[id number] ? Col Date: ?? 03/28/2013 ?/Sex: ?1945,(68 years),Male ? Rec Date: ?? 03/28/2013 ?LOC: ?[facility] ? SURGICAL PATHOLOGY ? SECTIONS/PROCESSING: Weight Calculator sections are subm itted. (R6) ? B [...] Address City/State/[place] [address] CERNER MILLENNIUM Frozen Section Report (03/28/2013 12:03 PM EDT) Component Value Ref Test Analysis Performed At [facility] gist Range Method Time Signature Frozen CERNER Section ? [facility] Report ? Provider: ?? MESHA MCKNIGHT Pt. Name: ?? GREGORY FATIMA ? Acc #: ?[id number] ?Pt. MRN: ?[id number] ? Col Date: ?? 03/28/2013 ?/Sex: ?1945,(68 [...] [facility]/[place] [address] CERNER MILLENNIUM POCT Glucose [...] [facility]/ZIP Code Phon e Number [address] CERNER MILLENNIUM Specimen to [...] [facility]/[place] [address] CERNER MILLENNIUM Antibody screen (03/28/2013 9:37 AM EDT) Analysis Performed At Patho logist Time Signature Ab Screen Negative CERNER Interp MILLENNIUM Expires at [id number] CERNER 360 on: MILLENNIUM Specimen Anatomical Collection Method Collection Time Receive d Time (Source) Location / / Volume Laterality Blood specimen 03/28/2013 9:37 AM 013 9:37 (specimen) EDT AM EDT Resulting Agency Comment Spec In Lab Mesha Mcknight MD BLOOD BANK ORDERABLES Performing Organization Address City/[facility]/[place] [address] [facility] ABO/Rh Typing (03/28/2013 9:37 AM EDT) athologist Signature ABORh Type O Pos [facility] Specimen Anatomical Collection Method Collection Time Receive d Time (Source) Location / / Volume Laterality Blood specimen 03/28/2013 9:37 AM 013 9:37 (specimen) EDT AM EDT Resulting Agency Comment Spec In Lab Mesha Mcknight MD BLOOD BANK ORDERABLES Performing Organization Address City/[facility]/ZIP Code Phon e Number [address] [facility] Differential, Automated (03/28/2013 9:34 AM [...] City/State/ZIP Code Phon e Number [place] [id number] HOSPITAL LAB[address] CERNER MILLENNIUM (ABNORMAL) Basic [...] intervals supplied above were not validated at [facility]. Results from pediatri c patients [...] Address City/State/[place] [address] CERNER MILLENNIUM (ABNORMAL) CBC [...] MPV 9.3 9.0 - 12.[address] [facility] Specimen Anatomical Collection Method Collection Time Receive d Time (Source) Location / / Volume Laterality Blood specimen 03/28/2013 9:34 AM 013 9:38 (specimen) EDT AM EDT Resulting Agency Comment Spec In Lab Mesha Mcknight MD HEMATOLOGY ORDERABLES Performing Organization Address City/[facility]/ZIP Code Phon e Number [address] RAKESH VILLALOBOSBANNER [facility] POCT Glucose (03/28/2013 9:17 AM [...] [facility]/ZIP Code Phon e Number [address] [facility] Specimen to Pathology (surgical or derm) (03/28/2013 8:55 AM EDT) Specimen Anatomical Collection Method Collection Time Receive d Time (Source) Location / / Volume Laterality AP Specimen 03/28/2013 8:55 AM 3 8:54 EDT AM EDT Narrative [facility] GR[facility]ELDA[facility] - 03/28/2013 8:55 AM E DT Specimen requisition ordered. ??Separate Pathology report to follow Mesha Mcknight MD PATHOLOGY/CYTOLOGY ORDERABLE S Performing Organization Address City/[facility]/ZIP Code Phon e Number [address] RAKESH WALKER documented in [...] RN) 0900 (Given - Provider: Radha Yao [facility], [facility]) 2.5 mg, Oral, DAILY, [...] override documented in this encounter Care Teams Sausage Maker Relationship Specialty Start Date End Date Angela Holliday APRN PCP - General 01/25/13 04/15/15 [address] [place] [address] documented as of this encounter
--- OUTSIDE RECORDS SUMMARY | 2022-04-17 08:31 | XMS_ITS | Encounter Summary ---
:1945 Author Organization [facility] [place] [address] Care Team Providers Name Role Phone Angela Holliday APRN Primary Care Provider Encounter Details Date Type Department Care Team Description 01/25/2013 Clinical [place] [address] Social History Tobacco Use Types Packs/Day [...] Dolan MD [facility] [place], [place] [address] (Wo rk) 05/28/2022 Laboratory Appointment Lab 05/28/2022 Office Visit Cardiology Zulma Dolan MD [facility] [place] [address] Liz Poole PA [facility] [place] [address] 06/10/2022 Office Visit Dermatology Laura Scherer MD [facility] DR TEJA GR-DERMAT [place], [place] [address] (Wo rk) documented as of this encounter Visit Diagnoses Not on filedocumented in this encounter Care Teams Yarn Conditioner Relationship Specialty Start Date End Date Angela Holliday APRN PCP - General 01/25/13 04/15/[address] [place] [address] documented as of this encounter
--- OUTSIDE RECORDS SUMMARY | 2022-04-17 08:31 | XMS_ITS | Encounter Summary ---
:1945 Author Organization [facility] [place] [address] Care Team Providers Name Role Phone NeilSom conner STACIE Primary Care Provider Reason for Visit Reason Comments Establish Care OBST GOITER Encounter Details Date Type Department Care Team Description 01/25/2013 Office Visit General Surgery at Manny Mcknight er colloid, toxic, [facility] MD Eliseo nodular (Primary Dx) [facility] [place] GENERAL SURGERY [address] [place], [place] [address] [phone] Social History Tobacco Use Types Packs/Day Years [...] the thyroid gland were obtained using a SonoSiConfluence [employer] MicroMaxx and an HFL38/13-6 broadband linear array [...] on physical exam. ROS: No H/O asthma, [place], stroke, pulmonary embolus or phlebitis. Comprehensive review [...] agrees to proceed. Will sign in through [facility]. Consent is signed. Send copy to Dr. SOM HOLLIDAY APRN and Elijah Elias MD. documented in this encounter Plan of Treatment Upcoming Encounters Date Type Specialty Care Team Description 05/28/2022 Appointment Cardiology Zulma Dolan MD [facility] [address] [place] [address] (Wo rk) 05/28/2022 Laboratory Appointment Lab 05/28/2022 Office Visit Cardiology Zulma Dolan [place] [facility] [place] [address] Liz Poole PA [facility] [place] [address] 06/10/2022 Office Visit Dermatology Laura Scherer MD [facility] DR TEJA GR-DERMAT [place], [place] [address] (Wo rk) documented as [...] 406 ms MUSE SYSTEM (Bezet) Calculated P Whitman 52 degrees MUSE SYSTEM Calculated R Whitman 0 degrees MUSE SYSTEM Calculated T Whitman 40 degrees MUSE SYSTEM INTERPRETATION Normal sinus [...] storm documented in this encounter Care Teams Back Joiner Relationship Specialty Start Date End Date Som Holliday APRN PCP - General 01/25/13 04/15/[address] [place] [address] documented as of this encounter
--- OUTSIDE RECORDS SUMMARY | 2022-04-17 08:31 | XMS_ITS | Encounter Summary ---
:1945 Author [address] [facility] [place] [address] Care Team Providers Name Role Phone Adi Costello MD Primary Care Provider Reason for Visit Reason Comments Annual Exam ckeck his groin and melanoma follow-up Encounter Details Date Type Department Care Team Description 11/21/2010 Follow-Up Dermatology Arik Tipton Melanoma (Primary Dx) [facility] MD Jorge [place] [id number] DERMATOLOGY DEPT . 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 His only complaints are leg cramps, [...] changes: Arik Tipton MD Section of Dermatology [facility] documented in this encounter Plan of Treatment Upcoming Encounters Date Type Specialty Care Team Description 05/28/2022 Appointment Cardiology Zulma Dolan MD [facility] Dr [place], [place] [address] (Wo rk) 05/28/2022 Laboratory Appointment Lab 05/28/2022 Office Visit Cardiology Zulma Dolan MD [facility] [place] [address] Liz Poole PA [facility] [place] [address] 06/10/2022 Office Visit Dermatology Laura Scherer MD [facility] DR TEJA GR-DERMAT [place], [place] [address] (Wo rk) documented as of this encounter Visit Diagnoses Diagnosis Melanoma - Primary Melanoma of skin, site unspecified documented in this encounter Care Teams Room Attendants Relationship Specialty Start Date End Date Adi Costello MD PCP - General 06/17/10 09/21/11 [address] [place] [address] documented as of this encounter
--- OUTSIDE RECORDS SUMMARY | 2022-04-17 08:31 | XMS_ITS | Encounter Summary ---
:1945 Author Organization [facility] Address [facility] [place] [address] Care Team Providers Name Role Phone Unknown Primary Care Provider Unavailable Reason for Visit Reason Comments Skin Check Encounter Details Date Type Department Care Team Description 10/04/2012 Follow-Up Dermatology at Rigoberto Forman soriasis (Primary Dx); Abdelrahman HOOPER MD Neoplasm of unspecified nature of bone, soft tissue, and skin; [address] [facility] Skin lesion of chest wall; [place] [address] Seborrheic psoriasis- scalp and ingtergl uteal area [phone] [facility]DER[facility] [place], [place] [address] (Wo rk) Social History [...] changes: Rigoberto Albarran MD Section of Dermatology [facility] documented in this encounter Plan of Treatment Upcoming Encounters Date Type Specialty Care Team Description 05/28/2022 Appointment Cardiology Zulma Dolan MD [facility] [address] [place], [place] [address] (Wo rk) 05/28/2022 Laboratory Appointment Lab 05/28/2022 Office Visit Cardiology Zulma Dolan MD [facility] [place] [address] Liz Poole PA [facility] [place] [address] 06/10/2022 Office Visit Dermatology Laura Scherer MD [facility] DR TEJA GR-DERMAT [place], [place] [address] (Wo rk) documented as [...] Ref Test Analysis Performed At [facility] gist Range Method Time Signature Surgical CERNER Pathology ? [facility] Report ? Provider: ?? RIGOBERTO ALBARRAN III Pt. Name: ?? DON HOANG ?A ? Acc #: ?[id number] ? Pt. ? Col Date: ?? 3 [...] [facility]/ZIP Code Phon e Number [address] [facility] Specimen to Pathology (NON-OR) (10/04/2012 9:55 AM EDT) Specimen Anatomical Collection Method Collection Time Receive d Time (Source) Location / / Volume Laterality AP Specimen 10/04/2012 9:55 AM 201 3 9:56 EDT AM EDT Narrative [facility] M[facility] - 10/04/2012 9:56 AM E DT Specimen requisition ordered. ??Separate Pathology report to follow Rigoberto Albarran III, MD PATHOLOGY/CYTOLOGY ORDERABLE S Performing Organization Address City/[facility]/ZIP Code Phon e Number [address] [facility] documented in this encounter Visit Diagnoses Diagnosis Psoriasis - Primary Other psoriasis Neoplasm of unspecified nature of bone, soft tissue, and skin Skin lesion of chest wall Unspecified disorder of skin and subcuta neous tissue Seborrheic psoriasis- scalp and ingtergl uteal area Other psoriasis documented in this encounter Care Teams Maker Up Folding Relationship Specialty Start Date End Date Unknown PCP - General 10/04/12 01/24/13 None documented as of this encounter
--- OUTSIDE RECORDS SUMMARY | 2022-04-17 08:32 | XMS_ITS | Encounter Summary ---
:[address] [facility] Address [address] [place] [address] Care Team Providers Name Role Phone Unknown, Provider Primary Care Provider Encounter Details Date Type Department Care Team Description 07/11/2014 Results Only [facility] Shruthi Horowitz MD Laboratory Services - [address] [place] [address] [place] [address] 0 [facility] [place] [address] [phone] Social History Tobacco Use Types Packs/Day Years [...] Pathology Report: SURGICAL PATHOLOGY REPORT [facility] Reports generated via electronic interface contain sorin ginal data; LABORATORY however they are lacking the format of the original re port. SERVICES Caution should be taken when reading/interpreting unfo rmatted reports. Name: ? DON HOANG ? Accession #: ? [id number] ? : ? 1945 (Age: 69) ??M [...] 6.5 x 3.0 cm in aggreg ate). Casino Change Attendant sections are submitted in 1- 10 (approximately 40% of the specimen is submitted). Viry Nunez 07/12/2014 11:21 AM End of Report Specimen Performing Organization Address City/State/ZIP Code Phon e Number [facility] [address] [place] [address] SERVICES documented in this encounter Visit Diagnoses Not on filedocumented in this encounter Care Teams Intelligence Specialist Relationship Specialty Start Date End Date Unknown, Provider, PCP - General 03/07/14 07/12/14 documented as of this encounter
--- OUTSIDE RECORDS SUMMARY | 2022-04-17 08:32 | XMS_ITS | Encounter Summary ---
:1945 Author Organization [facility] Address [address] [place] [address] Care Team Providers Name Role Phone Unknown, Provider Primary Care Provider Encounter Details Date Type Department Care Team Description 07/11/2014 Hospital Encounter [facility]- Heather Unknown, Provider, [facility] [address] [place] [address] [place] [address] (Work) [phone] Social History Tobacco Use Types Packs/Day Years Used Date Never Assessed Sex Assigned at Date Recorded Not on file documented as of this encounter Discharge Disposition Disposition Code Departure Means Destination Home or Self Custodial documented in this encounter Plan of Treatment Not on filedocumented as of this encounter Visit Diagnoses Not on filedocumented in this encounter Care Teams Licensed Architect Relationship Specialty Start Date End Date Unknown, Provider, PCP - General 03/07/14 07/12/14 documented as of this encounter
--- OUTSIDE RECORDS SUMMARY | 2022-04-17 08:32 | XMS_ITS | Encounter Summary ---
:1945 Author Organization [facility] Address [address] [place] [address] Care Team Providers Name Role Phone Lovely Vicente MD Primary Care Provider Encounter Details Date Type Department Care Team Description 01/28/2022 Lab Requisition [facility] Outr Resulting Lab, Pathology & Laboratory Provider [facility] [address] [place] [address] Social History Tobacco Use Types Packs/Day Years Used Date Never Assessed Sex Assigned at Date Recorded Not on file documented as of this encounter Plan of Treatment Not on filedocumented as of this encounter Procedures Procedure Name Priority Date/Time Associated Diagnosis Comme nts COVID-19 TEST [facility] Today 01/27/2022 14:30 LAB PCR EDT COVID-19 TESTING Routine 01/27/2022 14:30 Results for this EDT procedure are i n the results section. documented in this encounter Results COVID-19 TEST [facility] LAB PCR (01/27/2022 14:30 EDT) Specimen Swab Performing Organization Address City/State/ZIP Code Phon e Number [facility] [address] [place] [address] SERVICES COVID-19 TESTING (01/27/2022 14:30 EDT) COVID-19 rt-PCR Negative Negative [facility] Result Comment: CENTER LABORATORY This [...] was performed using the meliton SARS-CoV-2 assay ([employer] on the Meliton 6800 System Performing Lab Mel[place] [address] [facility] Lab [facility] SERVICES Specimen Swab Performing Organization Address City/State/ZIP Code Phon e Number [facility] [address] [place] [address] SERVICES documented in this encounter Visit Diagnoses Not on filedocumented in this encounter Care Teams Environmental Air Specialist Relationship Specialty Start Date End Date oLvely Vicente MD PCP - General 07/13/14 documented as of this encounter
--- OUTSIDE RECORDS SUMMARY | 2022-04-17 08:32 | XMS_ITS | Encounter Summary ---
:1945 Author Organization [facility] Address [address] [place] [address] Care Team Providers Name Role Phone Unavailable Primary Care Provider Unavailable Encounter Details Date Type Department Care Team Description 03/05/2014 Hospital Encounter [facility]- Heather Unknown, Provider, [facility] 0 [facility] [phone] [place] [address] (Work) [phone] Social History Tobacco Use Types Packs/Day Years [...]
--- OUTSIDE RECORDS SUMMARY | 2022-04-17 08:32 | XMS_ITS | Encounter Summary ---
:1945 Author Organization [facility] Address [address] [place] [address] Care Team Providers Name Role Phone Lovely Vicente MD Primary Care Provider Encounter Details Date Type Department Care Team Description 02/20/2022 Lab Requisition [facility] Outr Resulting Lab, Pathology & Laboratory Provider [facility] [address] [place] [address] Social History Tobacco Use Types Packs/Day Years [...] Pathologist Sig nature PSA 2.7 <=6.5 ng/mL [facility] SERVICES Specimen Blood - Venous blood (substance) Narrative [facility] SERVICES - 02/20/2022 18:17 EDT NOTE: Serum PSA concentration should not be in terpreted as absolute evidence for the presence or absence of malignant disease. Assayed on Siemens [employer] Centaur XPT usi ng chemiluminescent technology.??Values obtained by using different assay methods cannot be used interchangeably. Performing Organization Address City/State/ZIP Code Phon e Number [facility] [address] [place] [address] SERVICES documented in this encounter Visit Diagnoses Not on filedocumented in this encounter Care Teams Health Sciences Department Chair Relationship Specialty Start Date End Date Lovely Vicente MD PCP - General 07/13/14 documented as of this encounter
--- OUTSIDE RECORDS SUMMARY | 2022-04-17 08:32 | XMS_ITS | Clinical Summary ---
:1945 Author Organization [facility] Address [address] [place] [address] Care Team Providers Name Role Phone Lovely [...] i n the results section. COVID-19 TEST [facility] Today 01/27/2022 14:30 LAB PCR EDT COVID-19 TESTING Routine 01/27/2022 14:30 Results for this EDT procedure are i n the results section. from Last 3 Months Results PSA TOTAL, DIAGNOSTIC (02/20/2022 9:04 EDT) Pathologist Sig nature PSA 2.7 <=6.5 ng/mL [facility] Specimen Blood - Venous blood (substance) Narrative [facility] SERVICES - 02/20/2022 18:17 EDT NOTE: Serum PSA concentration should not be in terpreted as absolute evidence for the presence or absence of malignant disease. Assayed on Siem[employer] Centaur XPT usi ng chemiluminescent technology.??Values obtained by using different assay methods cannot be used interchangeably. Performing Organization Address City/State/ZIP Code Phon e Number [facility] [address] [place] [address] SERVICES COVID-19 TEST [facility] LAB PCR (01/27/2022 14:30 EDT) Specimen Swab Performing Organization Address City/[facility]/ZIP Code Phon e Number [facility] [address] [place] [address] SERVICES COVID-19 TESTING (01/27/2022 14:30 EDT) COVID-19 [...] performed using the meliton SARS-CoV-2 assay ([employer] on the Meliton 6800 System Performing Lab [address] [facility] Lab [facility] SERVICES Specimen Swab Performing Organization Address City/[facility]/ZIP Code Phon e Number [facility] [address] [place] [address] SERVICES from Last 3 Months Care Teams Roofer Relationship Specialty Start Date End Date Lovely Vicente MD PCP - General 07/13/14
--- OUTSIDE RECORDS SUMMARY | 2022-04-17 08:32 | XMS_ITS ---
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 Problem Critical ischemia I99.8 Active of lower extremity Problem Atherosclerosis I70.90 Active 3871 6007 Problem Type 2 diabetes E11.628 Active mellitus with other skin complications Problem 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 40 ; Acquired deformi ty of right foot M21.961 ; L luis term current use of i nsulin Z79.4 ; History of art erial bypass of lower extremi ty Z95.828 ; Atherosclerosis I70.90 and History of Lisfr anc amputation of fo ot Z89.439 [address] Feb, Type 2 diabet es mellitus [address] [place], [place] with diabe tic neuropathy, [address] unspecified E11. 40 ; Acquired deformi ty of right foot M21.961 ; L luis term current use of i nsulin Z79.4 ; History of art erial bypass of lower extremi ty Z95.828 ; Atherosclerosis I70.90 and History of Lisfr anc amputation of fo ot Z89.439 [facility] November, [place] [address] [facility] [facility] November, Type 2 [place] [address] with diabeti c neuropathy, unspecified E11. 40 ; Acquired deformi ty of right foot M21.961 ; L luis term current use of i nsulin Z79.4 ; History of art erial bypass of lower extremi ty Z95.828 ; Atherosclerosis I70.90 and History of Lisfr anc amputation of fo ot Z89.439 [facility] 10 Aug, 2019 Type 2 [place] [address] with other skin complications E1 1.628 ; Tinea pedis of l eft foot B35.3 ; Type 2 d iabetes mellitus with di abetic neuropathy, unsp ecified E11.40 ; Acquire d deformity of right foot M2 1.961 ; assisted current use of insulin Z79.4 ; History of arterial bypass of lower extremity Z95.828 and Athe rosclerosis I70.90 [facility] Jun, [place] [address] [address] Jun, [place] [address] [address] Jun, Type 2 diabet es mellitus [place] with other skin [address] complications E1 1.628 ; Acquired deformi ty of right foot M21.961 ; T ype 2 diabetes mellitu s with diabetic neuropa thy, unspecified E11. 40 ; terminal supervisor current use of insulin Z79.4 and Histor y of arterial bypass of lower extremity Z95.82 8 [facility] Feb, Type 2 [place] [address] with other s kin complications E1 1.628 ; Acquired deformi ty of right foot M21.961 ; T ype 2 diabetes mellitu s with diabetic neuropa thy, unspecified E11. 40 ; assisted current use of insulin Z79.4 and Histor y of arterial bypass of lower extremity Z95.82 8 [facility] November, Tinea pedis o f left foot [place], [place] B35.3 ; Ty pe 2 diabetes [address] mellitus with ot her skin complications E1 1.628 ; Acquired deformi ty of right foot M21.961 ; T ype 2 diabetes mellitu s with diabetic neuropa thy, unspecified E11. 40 ; terminal supervisor current use of insulin Z79.4 and Histor y of arterial bypass of lower extremity Z95.82 8 [facility] November, [place] [address] [address] Aug, Type 2 diabet es mellitus [place], [place] with diabe tic neuropathy, [address] unspecified E11. 40 ; Acquired deformi ty of right foot M21.961 ; P eripheral arterial disease I73.9 ; History of arter ial bypass of lower extremi ty Z95.828 ; assisted curren t use of insulin Z79.4 an d History of Lisfranc amputat ion of foot Z89.439 UNKNOWN Jul, [facility] 11 Jun, 2018 Type 2 [place] [address] with diabeti c neuropathy, unspecified E11. [address] [facility] Apr, Edema of both legs R60.0 ; [place], [place] Acquired d eformity of right [address] foot M21.961 ; P eripheral arterial disease I73.9 ; History of arter ial bypass of lower extremi ty Z95.828 ; terminal supervisor curren t use of insulin Z79.4 an d Type 2 diabetes mellitu s with diabetic neuropa thy, unspecified E11. [address] [facility] Mar, [place] [address] [address] Mar, Edema of both legs R60.0 ; [place] Acquired d eformity of right [address]135 foot M21.961 ; P eripheral arterial disease I73.9 ; History of arter ial bypass of lower extremi ty Z95.828 ; terminal supervisor curren t use of insulin Z79.4 an d Type 2 diabetes mellitu s with diabetic neuropa thy, unspecified E11. 40 [facility] Feb, Edema of both legs R60.0 ; [place] [address] Ulcer of lef t calf, limited to breakdown of skin L97.221 ; Acquired defor mity of right foot M21.9 61 ; Peripheral arter ial disease I73.9 ; History of arterial bypass of lower extremity Z95.828 ; Long t erm current use of insulin Z 79.4 and Type 2 diabetes mellitus with diabetic ne uropathy, unspecified E11. 40 [facility] 1 Feb, [facility] [place] [address] [facility] Feb, Edema of both legs R60.0 ; [place] [address] Ulcer of rig ht calf, limited to [...] uropathy, unspecified E11. 40 [facility] [address] [facility] Feb, [place] [address] [facility] [address] [facility] [address] Feb, [place] [address] [facility] [address] [facility] [facility] [address] Jan, [place] [address] [facility] [address] [facility] [facility] [address] Jan, [place] [address] [facility] [address] [address] Jan, [place] [address] [facility] [address] Jan, [place] [address] [facility] [address] [facility] Jan[place] [address] [facility] [address] Dec, [place] [address] [facility] [address] Dec, [place] [address] [facility] [address] [address] Dec, [place] [address] [facility] [address] Dec, [place] [address] [facility] Dec, [place] [address] [facility] [address] [address] Dec, [place] [address] [facility] November, [place] [address] [facility] November, [place] [address] [facility] November, [place] [address] [facility] November, [place] [address] [facility] November, [place] [address] [facility] November, [place] [address] UNKNOWN November, [facility] [address] November, [place]ICE [place] [address] [facility] November, [place] [address] [facility] Oct, [place] [address] [facility] Oct[place] [address] [facility] Oct, [place] [address] [facility] [address] 18 Oct, 2017 [place] [address] [facility] 16 Oct, 2017 [place] [address] [facility] [facility] [place] 16 Oct, 2017 [facility] [address] [facility] Oct, [place] [address] [facility] Oct, [place] [address] [facility] Oct, [place] [address] [facility] [address] [place] Sep, [facility] [address] [facility] Sep, [place] [address] [facility] [address] [place] Sep, [place] [address] [facility] [address] [place] Sep, [place] [address] [facility] [address] [place] Sep, [place] [address] [facility] [address] Sep, Critical ischemi a of lower [place] [address] extremity I 99.8 ; Local infection of the skin and subcutaneous tis lindsey, unspecified L08. 9 and Type 2 diabetes mellitu s with other skin complicatio ns E11.628 [facility] Sep, [place] [address] [facility] [address] [facility] [address] Sep, [place] [address] [facility] [address] [facility] [address] Sep, [place] [address] [facility] [address] [facility] [address] 14 Sep, [address] [place] [address] [facility] Sep, [place] [address] [facility] Sep, [place] [address] [facility] Sep, [place] [address] [facility] Sep, [place] [address] [facility] [address] [facility] [address] Aug, [place] [address] [facility] [address] [place] Aug, [facility] [address] [facility] [address] [place] Aug, [place] [address] [facility] Aug, [place] [address] SURG[facility] Aug, [place] [address] [facility] Aug, [place] [address] ORTHOPEDIC OFFICE [facility] Aug, Pre-op exam Z01.818 [place] [address] [facility] Aug, [place] [address] [facility] Aug, [place] [address] [facility] Aug, [place] [address] IMMUNIZATIONS No Known Immunizations SOCIAL HISTORY Qualifiers [...] subcutaneously 22 24h Active units/mL daily Pen Clayton Active Ciclopirox Externally Twice 1 application 12h [...] For Report MR Lower Ext R w/o ([id number]) 2017-09-16 See Below For Report CR C-ARM [...] A1c 03/04/18 - 6.7, [facility], f/u - bilateral leg edema, Pt [...] at wound center,lab work done 03/07/2018 @ [facility], Patient came in with tubigrip bilateral , wound clin est, wound clinest, Wound CTR-follow up, Wound CTR-follow up, Wound CTR-follow up, Peer to Peer w/ Dr. Espino, Wound CTR-follow up, Wound CTR-follow up, Psychological Aide Documentation, LAB, Wound CTR-follow up, Wound CTR-follow up, Wound CTR-follow up, Wound CTR-follow up, LAB, LAB, Wound CTR- follow up, Wound CTR-follow up, Wound CTR-follow up, Psychological Aide Documentation, [facility], Wound CTR-follow up, Wound CTR-follow up, Pull PICC Line, Wound CTR-follow up, Wound CTR-follow up, LAB, Still taking doxycycline 100mg? , Wound CTR-follow up, Wound CTR-follow up, Wound CTR-follow up, Psychological Aide Documentation, Wound CTR-follow up, Wound CTR-follow up, Call back, Psychological Aide Documentation, Psychological Aide Documentation, Psychological Aide Documentation, Wound CTR-follow up, WCC, Wound CTR-follow up, Wound CTR-follow up, labs, D/C planning, bailey smetatarsal amputation of right foot, LAB, LAB, Wound CTR-NEW Insurance Providers [facility] Member Patient Patient Patient Patient Patient Subscriber Subscriber Subscriber Group Insurance Plan Plan Plan Plan ID Relationship Address Phone Name Date of ID Name Date of No Type Insurance Insurance Insurance Coverage to Subscriber Address Phone Name Dates OTHER [address] [place] [phone] OTHER [place] [id number] GRANT 1^MAIN CONSTIT[employer]Y [facility] PAYOR [id number] S-BLUE [phone] S-BLUE [place] [id number] [address] [place] [address] [place] 3000 GOFFS MEDICARE self [place] [id number] [facility] [id number] SELF PAY [address] STRE[address] SELF PAY self [place] [id number] AFTER BLUE [place] AFTER AJ [facility] [id number] [place]
--- OUTSIDE RECORDS SUMMARY | 2022-04-17 08:32 | XMS_ITS | Encounter Summary ---
:1945 Author Organization [facility] Address [address] [place] [address] Care Team Providers Name Role Phone Lovely Vicente MD Primary Care Provider Encounter Details Date Type Department Care Team Description 01/01/2020 Lab Requisition [facility] Outr Resulting Lab, Pathology & Laboratory Provider [facility] [address] [place] [address] Social History Tobacco Use Types Packs/Day Years [...] PSA 2.1 0.0 - 6.5 ng/mL [facility] Specimen Blood - Venous blood (substance) Narrative [facility] - 01/02/2020 10:40 EDT NOTE: Serum PSA concentration should not be in terpreted as absolute evidence for the presence or absence of malignant disease. Assayed on Siem[employer] Centaur XPT usi ng chemiluminescent technology.??Values obtained by using different assay methods cannot be used interchangeably. Performing Organization Address City/State/ZIP Code Phon e Number [facility] [address] [place] [address] SERVICES documented in this encounter Visit Diagnoses Not on filedocumented in this encounter Care Teams District Plant Engineer Relationship Specialty Start Date End Date Lovely Vicente MD PCP - General 07/13/14 documented as of this encounter
--- OUTSIDE RECORDS SUMMARY | 2022-04-17 08:32 | XMS_ITS | Encounter Summary ---
:1945 Author Organization [facility] Address [address] [place] [address] Care Team Providers Name Role Phone Lovely Vicente MD Primary Care Provider Encounter Details Date Type Department Care Team Description 08/11/2019 Lab Re[address] [facility] Unknown, Provider, Pathology & Laboratory [facility] [address] [facility] [place] [address] Social History Tobacco Use Types Packs/Day Years [...] (08/11/2019 14:35 EST) Giardia and Cryptosporidium Cryptosporidium [facility] Cryptosporidium Antigen Neg and Antigen Neg and CENTER Giardia Antigen Neg Giardia Antigen Neg LABORATORY SERVICES Specimen Feces - Specimen from rectum (specimen) Performing Organization Address City/State/ZIP Code Phon e Number [facility] [address] [place] [address] SERVICES documented in this encounter Visit Diagnoses Not on filedocumented in this encounter Care Teams Acidizer Water Well Relationship Specialty Start Date End Date Lovely Vicente MD PCP - General 07/13/14 documented as of this encounter
--- OUTSIDE RECORDS SUMMARY | 2022-04-17 08:32 | XMS_ITS | Encounter Summary ---
:1945 Author Organization [facility] Address [address] [place] [address] Care Team Providers Name Role Phone Lovely Vicente MD Primary Care Provider Encounter Details Date Type Department Care Team Description 04/04/2021 Lab Requisition [facility] Outr Resulting Lab, Pathology & Laboratory Provider [facility] [address] [place] [address] Social History Tobacco Use Types Packs/Day Years [...] (04/03/2021 12:15 EDT) Giardia and Cryptosporidium Cryptosporidium [facility] Cryptosporidium Antigen Neg and Antigen Neg and CENTER Giardia Antigen Neg Giardia Antigen Neg LABORATORY SERVICES Specimen Feces - Specimen from rectum (specimen) Performing Organization Address City/State/ZIP Code Phon e Number [facility] [address] [place] [address] SERVICES documented in this encounter Visit Diagnoses Not on filedocumented in this encounter Care Teams Beater Room Supervisor Relationship Specialty Start Date End Date Lovely Vicente MD PCP - General 07/13/14 documented as of this encounter
--- OUTSIDE RECORDS SUMMARY | 2022-04-17 08:32 | XMS_ITS | Encounter Summary ---
:1945 Author Organization [facility] Address [address] [place] [address] Care Team Providers Name Role Phone Lovely Vicente MD Primary Care Provider Encounter Details Date Type Department Care Team Description 01/17/2021 Lab Requisition [facility] Outr Resulting Lab, Pathology & Laboratory Provider [facility] [address] [place] [address] Social History Tobacco Use Types Packs/Day Years [...] PSA 2.9 0.0 - 6.5 ng/mL [facility] LABORA TORY SERVICES Specimen Blood - Venous blood (substance) Narrative [facility] LABORATORY SERVICES - 01/17/2021 17:46 EDT [...] [facility] [address] [place] [address] SERVICES documented in this encounter Visit Diagnoses Not on filedocumented in this encounter Care Teams Political Organizer Relationship Specialty Start Date End Date Lovely Vicente MD PCP - General 07/13/14 documented as of this encounter
--- OUTSIDE RECORDS SUMMARY | 2022-04-17 08:32 | XMS_ITS | Encounter Summary ---
:1945 Author Organization [facility] Address [address] [place] [address] Care Team Providers Name Role Phone Unknown, Provider Primary Care Provider Encounter Details Date Type Department Care Team Description 03/05/2014 Results Only [facility] Eris Taylor MD Laboratory Services - [address] [place] [address] [place] [address] [phone] Social History Tobacco Use Types Packs/Day Years Used Date Never Assessed Sex Assigned at Date Recorded Not on file documented as of this encounter Plan of Treatment Not on filedocumented as of this encounter Procedures Procedure Name Priority Date/Time Associated Diagnosis Comme [facility] SURGICAL PATHOLOGY Routine 03/05/2014 10:34 Resul [...] ? DON HOANG ? Accession #: ? [id number] ? : ? 1945 (Age: 68) ??M [...] Organization Address City/State/ZIP Code Phon e Number [facility] [address] [place] [address] SERVICES [facility] [address] [place] [address] documented in this encounter Visit Diagnoses Not on filedocumented in this encounter Care Teams Help Desk Intern Relationship Specialty Start Date End Date Unknown, Provider, PCP - General 03/07/14 07/12/14 documented as of this encounter
--- OUTSIDE RECORDS SUMMARY | 2022-04-20 08:09 | XMS_ITS | Encounter Summary ---
:1945 [place] [address] Care Team Providers Name Role Phone Lovely Vicente MD Primary Care Provider Encounter Details Date Type Department Care Team Description 12/25/2021 [place] [facility] [place] Poole, Chronic systolic heart [facility] [place] [address] Cardiology Dept [phone] [place], [place] [address] Social History Tobacco Use Types [...] As per DC Summary - Ad[place] [facility] [place]08[place], [...] mg PO daily in place of Lasix. [place] is new for him and he will [...] regurgitation present. 07/07/2019 - 07/21/2019 Zio Patch Statistics Manager The patient had a minimum heart [...] hyperkalemia 4.9 today 6. Post-op atrial fibrillation [id number] (CHF, HTN, DM, vascular disease, thromboembolism) [...] Cardiology Zulma Dolan MD [facility] [address] [place], [place] [address] (Wo rk) 05/28/2022 Laboratory Appointment Lab 05/28/2022 Office Visit Cardiology Zulma Dolan MD [facility] [place] [address] Liz Poole PA [facility] Cardiology [place] [address] 06/10/2022 Office Visit Dermatology Laura Scherer MD [facility] ER [address] [place], [place] [address] (Mikayla alcaraz) documented as of this encounter Results (ABNORMAL) pro-Brain Natriuretic Peptide (12/25/2021 7:46 AM EDT) athologist Signature ProBNP 1,380 (H) <=124 [facility] pg/mL [facility] LABORATORY Specimen Anatomical Collection Method Collection Time Receive d Time (Source) Location / / Volume Laterality Blood 12/25/2021 7:46 AM 8:01 EDT AM EDT Resulting Agency Comment Spec In Lab Zulma Plunkett MD CHEMISTRY ORDERABLES Performing Organization Address City/State/[place] [address] (ABNORMAL) Basic Metabolic Panel (non-fasting) (12/25/2021 7:46 AM EDT) athologist Signature Glucose Lvl 272 (H) 65 - 199 [facility] mg/dL [facility] [...] Organization Address City/State/[place] [address] documented in this encounter Visit Diagnoses Diagnosis Chronic systolic heart failure documented in this encounter Care Teams Mold Car Pusher Relationship Specialty Start Date End Date Lovely Vicente MD PCP - General 04/16/[address] [place] [address] documented as of this encounter
--- OUTSIDE RECORDS SUMMARY | 2022-04-20 08:09 | XMS_ITS | Encounter Summary ---
:1945 Author Organization [facility] [place] [address] Care Team Providers Name Role Phone Lovely Vicente MD Primary Care Provider Encounter Details Date Type Department Care Team Description 03/26/2022 Office Visit Cardiology at [facility] Vitaliy Nobles MD Chronic systolic heart failure; [facility] ONE MEDICAL ASCVD (ar teriosclerotic cardiovascular disease); [facility] Cardiomyopathy, ischemic CARDIOLOGY [address] [place] [address] [phone] Social History Tobacco Use Types Packs/Day Years [...] included. Formerly [facility] [place] [address] CARDIOLOGY OUTPATIENT CLINIC VISIT [facility] Don Mccollum Kushal 03/26/2022 Referring Providers: MD Jules Cr Joyce, MD [address] [place] [address] CHIEF COMPLAINT: I am doing well CARDIAC-RELEVANT [...] using a 2.0 x 26 mm ORION [place] TUCKER stent. This completes therevascularization of all [...] in [address] Lovely Vicente MD [address] [place] [address] HISTORY OF PRESENT ILLNESS: Don Fatima is [...] using a 2.0 x 26 mm ORION [place]bee TUCKER stent. This completes the revascularization of [...] 12.71) performed by Yonathan Smith MD at [facility] OR ??? PRO CABG, ARTERIAL, SINGLE N/A 07/07/2017 @CABG, USING ARTERIAL GRAFT;SINGLE ARTERIAL GRAFT (WRVU 33.75) performed by Yuan Retana [facility] ??? PRO PERC TRLUML CORONARY STENT W/ANGIO ONE ART/BRANCH N/A 01/30/2022 STENT PLACEMENT-SINGLE MAJOR CORONARY ARTERY OR BRANCH performed by Vitaliy Nobles MD at [facility] CATH LABS ??? PRO THYROIDECTOMY 03/28/2013 THYROIDECTOMY, TOTAL OR COMPLETE performed by Manny Mcknigth MD at [facility] MAIN OR SOCIAL HISTORY: reports [...] using a 2.0 x 26 mm ORION Bybee TUCKER stent. This completes the revascularization of [...] Sincerely, Dr. Vitaliy Nobles MD [employer] Career Resource Technician Interventional Cardiology 03/26/2022 CC: Lovely Vicente MD [...] As per DC Summary - Admitted to [facility] on 12/08/21, transferred from [facility], respiratory distress with hypoxia [...] Antiplatelet (DAPT) Recommendations above ? TTE from [facility] 12/08/21 ?? 07/28/2019 Echocardiogram: SUMMARY: 1. [...] regurgitation present. 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 Post-op atrial fibrillation [id number] (CHF, HTN, DM, vascular disease, thromboembolism) [...] Dolan MD [facility] [place] [address] (Wo rk) 05/28/2022 Laboratory Appointment Lab 05/28/2022 Office Visit Cardiology Zulma Dolan MD [facility] [place] [address] Liz Poole PA [facility] Dr Cardiology Dept [address] 06/10/2022 Office Visit Dermatology Laura Scherer MD [facility] [address] [place], [place] [address] (Wo rk) documented as of this encounter Visit Diagnoses Diagnosis Chronic systolic heart failure ASCVD (arteriosclerotic cardiovascular d isease) Unspecified cardiovascular disease Cardiomyopathy, ischemic Other specified forms of chronic ischemi c heart disease documented in this encounter Care Teams Corporate Services Manager Relationship Specialty Start Date End Date Lovely Vicente MD PCP - General 04/16/[address] [place] [address] documented as of this encounter
--- OUTSIDE RECORDS SUMMARY | 2022-04-20 08:09 | XMS_ITS | Encounter Summary ---
:1945 Author Organization [facility] Address [facility] [place] [address] Care Team Providers Name Role Phone Lovely iVcente MD Primary Care Provider Reason for Visit Reason Onset Date Comments Medication Refill 04/09/2022 Jardiance Encounter Details Date Type Department Care Team Description 04/09/2022 Refill Cardiology at [facility] Liz Poole PA Medication Refill [facility] (Ja rdiance) [place] [address] Cardiology Dept [phone] [place], [place] [address] (Wo rk) Social History Tobacco [...] MD [facility] er [address] [place] [address] (Wo rk) 05/28/2022 Laboratory Appointment Lab 05/28/2022 Office Visit Cardiology Zulma Dolan MD [facility] [place] [address] Liz Poole PA [facility] [place] [address] 06/10/2022 Office Visit Dermatology Laura Scherer MD [facility] ER DR [address] [place], [place] [address] (Wo rk) documented as of this encounter Visit Diagnoses Diagnosis Chronic systolic heart failure documented in this encounter Care Teams Warping Machine Operator Relationship Specialty Start Date End Date Lovely Vicente MD PCP - General 04/16/[address] [place] [address] documented as of this encounter
--- OUTSIDE RECORDS SUMMARY | 2022-04-20 08:09 | XMS_ITS | Encounter Summary ---
:1945 Author Organization [facility] [place] [address] Care Team Providers Name Role Phone Lovely Vicente MD Primary Care Provider Encounter Details Date Type Department Care Team Description 12/24/2021 Telephone Public Health at [facility] [place] [address] Social History Tobacco Use Types Packs/Day [...] Dolan MD [facility] [address] [place], [place] [address] (Wo rk) 05/28/2022 Laboratory Appointment Lab 05/28/2022 Office Visit Cardiology Zulma Dolan MD [facility] [place] [address] Liz Poole PA [facility] [place] [address] 06/10/2022 Office Visit Dermatology Laura Scherer MD [facility] ER DR [address] [place], [place] [address] (Wo rk) documented as of this encounter Visit Diagnoses Not on filedocumented in this encounter Care Teams Student Services Counselor Relationship Specialty Start Date End Date Lovely Vicente MD PCP - General 04/16/[address] [place] [address] documented as of this encounter
--- OUTSIDE RECORDS SUMMARY | 2022-04-20 08:09 | XMS_ITS | Clinical Summary ---
:1945 Author Organization [facility] [place] [address] Care Team Providers Name Role Phone Lvoely Vicente MD Primary Care Provider Allergies Active [...] ASCVD (a rteriosclerotic cardiovascular disease); Atherosclerosis of [place] coronary artery of [place] heart with angina pectoris with [...] Description 05/28/2022 Appointment Cardiology Zulma Dolan MD [facility] er [address] [place] [address] (Wo rk) 05/28/2022 Laboratory Appointment Lab 05/28/2022 Office Visit Cardiology Zulma Dolan MD [facility] [place] [address] Liz Poole PA [facility] Card[place] [address] 06/10/2022 Office Visit Dermatology Laura Scherer MD [facility] ER DR [address] [place], [place] [address] (Wo rk) Health Maintenance Due Date Last Done Comments Covid-19 Vaccine (#1) 1950 Pneumoccocal Vaccine: 65+ (1 - PCV) 1952 Hepatitis C Screening 1964 Tdap adult 1965 Tetanus vaccine 1965 Zoster vaccine (1 of 2) 1996 Colonoscopy 01/16/2019 01/16/2014, 01/16/2014 Influenza (Flu) vaccine (1 of - 03/26/2022 03/29/2013, Influenza standard series) Medical Devices Implanted Type Area Radiologic Technician Device Shelf Model / Identifier Expiration Serial / Date Lot Cable,Cut,Edg,Blnt,Ss,3tpr ([id number]) - [id number] IMPLANTS Midline: [employer] 04/01/2022 [id number] / Implanted: Qty: 4 on 07/07/2017 by Yuna Retana MD at [facility] [employer]CHNOLOGY - / [id number] Procedures Procedure Name Priority Date/Time Associated Diagnosis [...] Time Signature WBC 7.2 4.0 - 9.5 [facility] x10(3)/[facility] LABORATORY RBC 4.41 (L) 4.58 - [facility] 5.54 [facility] x10(6)/[facility] LABORATORY Hemoglobin 13.2 (L) 13.7 - [place] [facility] 16.5 g/dL [facility] LABORATORY Hematocrit 40.9 40.5 - [place] 48.5 % [facility] LABORATORY MCV 92.7 82.9 - [facility] 93.1 [facility] LABORATORY MCH 29.9 27.5 - [place] 32.1 pg [facility] LABORATORY MCHC 32.3 32.0 - [place] 35.7 g/dL [facility] LABORATORY Platelets 191 145 - 357 [facility] x10(3)/[facility] LABORATORY RDWSD 53.6 (H) 36.0 - [place] [facility] 45.0 [facility] LABORATORY RDWCV 15.6 (H) 11.4 - [place] 13.8 % [facility] LABORATORY MPV 8.7 7.6 - 12.9 [facility] LABORATORY nRBC % Auto 0.0 % [facility] LABORATORY nRBC Abs Auto 0.000 0.000 - [facility] 0.[address] [facility] x10(3)/[facility] LABORATORY Specimen Anatomical Collection Method Collection Time Receive d Time (Source) Location / / Volume Laterality Blood 02/19/2022 8:06 AM 8:09 EDT AM EDT Resulting Agency Comment Spec In Lab Liz BROWN HEMATOLOGY ORDERABLES Performing Organization Address City/State/[place] [address] (ABNORMAL) Differential, Automated (02/19/2022 8:06 AM EDT)Only the most recent of3 resultswithin the time period is included. [facility] Method Time Signature Neutrophils % 76.0 % [facility] LABORATORY Neutr Abs (ANC) 5.49 1.70 - [facility] [address] [facility] x10(3)/[facility] LABORATORY Lymphocytes % 10.8 % [facility] LABORATORY Lymphocytes Abs 0.8 (L) 0.9 - 3.2 [facility] x10(3)/[facility] LABORATORY Monocytes % 10.2 % [facility] LABORATORY Monocyte Abs 0.7 0.3 - 0.9 [facility] x10(3)/[facility] LABORATORY Eosinophils % 1.2 % [facility] LABORATORY Eosinophils Abs 0.1 0.0 - 0.4 [facility] x10(3)/[facility] LABORATORY Basophils % 0.8 % [facility] LABORATORY Basophils Abs 0.1 0.0 - 0.1 [facility] x10(3)/[facility] LABORATORY Immature Gran % 1.00 % [facility] [...] Gran Abs 0.07 (H) 0.00 - 0.04 x10(3)/[facility] LABORATORY Specimen Anatomical Collection Method Collection Time Receive d Time (Source) Location / / Volume Laterality Blood 02/19/2022 8:06 AM 2 8:09 EDT AM EDT Resulting Agency Comment Spec In Lab Liz BROWN HEMATOLOGY ORDERABLES Performing Organization Address City/[facility]/[place] [address] (ABNORMAL) pro-Brain Natriuretic Peptide (02/19/2022 8:06 AM EDT) P athologist Signature ProBNP 984 (H) <=449 pg/mL [facility] LABORATORY Specimen Anatomical Collection Method Collection Time Receive d Time (Source) Location / / Volume Laterality Blood 02/19/2022 8:06 AM 2 8:09 EDT AM EDT Resulting Agency Comment Spec In Lab Zulma Plunkett MD CHEMISTRY ORDERABLES Performing Organization Address City/[facility]/[place] [address] POCT Glucose (01/30/2022 1:41 PM EDT)Only the most recent of4 resultswithin the time period is included. P athologist Signature POC Glucose 148 65 - 199 [facility] mg/dL [facility] LABORATORY Comment: Supplemental ranges: <140 mg/dL before meals <180 mg/dL all other times of the day Specimen Anatomical Collection Method Collection Time Receive d Time (Source) Location / / Volume Laterality Blood 01/30/2022 1:41 PM 2 1:41 EDT PM EDT Vitaliy Nobles MD POINT OF CARE TEST ORDERABLE S Performing Organization Address City/[facility]/ZIP Code Phon e Number [address] EKG 12 Lead (01/30/2022 10:33 AM EDT) Component Value Ref Range Test Analysis Performed Pathologis t Method Time At Signature Ventricular rate 64 BPM MUSE SYSTEM Atrial Rate 64 BPM MUSE SYSTEM P-R Interval 162 ms MUSE SYSTEM QRS Duration 94 ms MUSE SYSTEM Q-T Interval 422 ms MUSE SYSTEM QTC Calculated 435 ms MUSE SYSTEM (Bezet) Calculated P [facility] 41 degrees MUSE SYSTEM Calculated R [facility] -27 degrees MUSE SYSTEM Calculated T [facility] 104 degrees MUSE SYSTEM INTERPRETATION Normal sinus rhythm MUSE SYSTEM Anterolateral infarct (cited on or before 09-DEC-2021) Abnormal ECG When compared with ECG of 10-DEC-2021 11:17, No significant change was found Confirmed by Gary Perez ([id number]) on 01/30/2022 5:57:5 2 PM Specimen Anatomical [...] Laterality Volume Narrative 01/30/2022 2:09 PM EDT ?[facility] ? Cardiac Cathete rization/Intervention Report ? Patient Name: Génesis Fatimarory Mccollum. ? Procedure Date: 01/30/2022 ? A #: [id number] ? Primary Physician: Nobles, Vitaliy P ? Case #: [id number] ? File Name: [id number] ? Catheterization Order Number: [id number] ? [facility] ? Final Report [place], [place] ? Patient Name: ? Don E. Stewa rt ? ID#: ?[id number] ? : ?1945 ? Procedure Date: ? [...] patient was ?designated as ASA Class III. [facility] clinical frailty scale is 5: [...] guiding catheter an d a 3.[address] ??20 Mhz ?using Manual pullback. ??Imagin [...] A premounted 2.00 x 26 mm Hard[place]ep [place] (TUCKER) ? was deployed wi th a [...] Wedelivered along 2.0 x 26 mm [place]DEEP [place] ? TUCKER stent and p ositioned it [...] require ?modification of this regimen. C onsult [facility] Interventional [...] using a 2.0 x 26 mm [place] TUCKER stent. ?This completes the revasculariz ation [...] Procedure Note Vitaliy Nobles MD - 03/06/2022 [facility] Cardiac Catheterization/Intervention Re port Patient Name: Don Fatima Procedure Date: 01/30/2022 A #: [id number] Primary Physician: Vitaliy Nobles Case #: [id number] File Name: [id number] Catheterization Order Number: [id number] [facility] Final Report [place], [place] Patient Name: Don Fatima ID#: [...] 6 SLFr sheath was inserted in [facility] radial artery utilizing the Seldinger [...] 1.5 guiding catheter and a 3.[address] 20 Mhz using Manual pullback. Imaging [...] A premounted 2.00 x 26 mm Hardeep [place] (TUCKER) was deployed with a maximum inflation [...] along 2. 0 x 26 mm HARDE[place] TUCKER stent and positioned it at the [...] require modification of this regimen. Consult [facility] Interventional Cardiology for questions. The [...] using a 2.0 x 26 mm HARDEEP [place] TUCKER stent. 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
--- OUTSIDE RECORDS SUMMARY | 2022-04-20 08:09 | XMS_ITS | Encounter Summary ---
:1945 [place] [address] Care Team Providers Name Role Phone Lovely Vicente MD Primary Care Provider Encounter Details Date Type Department Care Team Description 12/30/2021 Notes Only [facility] [place] [address] Social History Tobacco Use Types Packs/Day [...] Failure team. DX: HFrEF. [facility] documented in this encounter Plan of Treatment Upcoming Encounters Date Type Specialty Care Team Description 05/28/2022 Appointment Cardiology Zulma Dolan MD [facility] [address] [place], [place] [address] (Wo rk) 05/28/2022 Laboratory Appointment Lab 05/28/2022 Office Visit Cardiology Zulma Dolan MD [facility] [place] [address] Liz Poole PA [facility] [place] [address] 06/10/2022 Office Visit Dermatology Laura Scherer MD [facility] ER DR [address] [place], [place] [address] (Wo rk) documented as of this encounter Visit Diagnoses Not on filedocumented in this encounter Care Teams Medical Laboratory Scientist Relationship Specialty Start Date End Date Lovely Vicente MD PCP - General 04/16/[address] [place] [address] documented as of this encounter
--- OUTSIDE RECORDS SUMMARY | 2022-04-20 08:09 | XMS_ITS | Encounter Summary ---
:1945 Author Organization [facility] [place] [address] Care Team Providers Name Role Phone Lovely Vicente MD Primary Care Provider Encounter Details Date Type Department Care Team Description 12/24/2021 Orders Only Mold Closer Helper Zulma iFnch ASCVD (art eriosclerotic [facility] cardiovascular disease) [facility] [place] [address] [place], [place] [phone] (Work) [phone] Social History Tobacco Use Types Packs/Day Years [...] Dolan MD [facility] [address] [place] [address] (Wo rk) 05/28/2022 Laboratory Appointment Lab 05/28/2022 Office Visit Cardiology Zulma Dolan MD [facility] [address] Liz Poole PA [facility] [place] [address] 06/10/2022 Office Visit Dermatology Laura Scherer MD [facility] [address] [place], [place] [address] (Wo rk) documented as of this encounter Visit Diagnoses Diagnosis ASCVD (arteriosclerotic cardiovascular d isease) Unspecified cardiovascular disease documented in this encounter Care Teams Wet Silk Hanger Relationship Specialty Start Date End Date Lovely Vicente MD PCP - General 04/16/[address] [place] [address] documented as of this encounter
--- OUTSIDE RECORDS SUMMARY | 2022-04-20 08:09 | XMS_ITS | Encounter Summary ---
:1945 Author Organization [facility] [place] [address] Care Team Providers Name Role Phone Lovely Vicente MD Primary Care Provider Reason for Referral Diagnostic Test (Routine) - New Request Specialty Diagnoses / Procedures Referred By Contact Refer red To Contact Cardiology Diagnoses Chronic systolic heart failure Liz Carrera PA [facility] Non-Inv Card Lab Procedures Echocardiogram Transthoracic [facility] [place] [address] [place] [address] Fax: Referral ID Status Reason Start Expiration Visits Visits Date Date Requested Authorized [id number] New Request Specialty 02/19/2022 02/19/2023 1 1 Service Requested Encounter Details Date Type Department Care Team Description 02/19/2022 Office Visit Cardiology at [facility] Liz Carrera, Chronic systolic heart [facility] [place] [address] Cardiology Dept [phone] [place], [place] [address] Social History Tobacco Use Types [...] As per DC Summary - Admitted to [facility] on 12/08/21, transferred from [facility], respiratory distress with hypoxia [...] mg PO daily in place of Lasix. Knippa is new for him and he will [...] (DAPT) Recommendations above ? TTE from [facility] 12/08/21 ?? 07/28/2019 Echocardiogram: SUMMARY: 1. [...] regurgitation present. 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 Post-op atrial fibrillation [id number] (CHF, HTN, DM, vascular disease, thromboembolism) [...] Zulma Dolan MD [facility] [place], [place] [address] (Wo rk) 05/28/2022 Laboratory Appointment Lab 05/28/2022 Office Visit Cardiology Zulma Dolan MD [facility] [place] [address] Liz Carrera PA [facility] [place] [address] 06/10/2022 Office Visit Dermatology Laura Scherer MD [facility] DR [address] [facility] [place] [address] (Wo rk) Scheduled Orders Name Type Priority Associated Order Schedule Diagnoses Echocardiogram Echocardiography Routine Chronic systolic Expec vlad: Transthoracic heart failure 05/22/2022 (Approximate), Expires: 11/21/2022 documented as of this encounter Results (ABNORMAL) Basic Metabolic Panel (non-fasting) (02/19/2022 8:06 AM EDT) P athologist Signature Glucose Lvl 139 65 - 199 [facility] mg/dL [facility] Comment: [...] Organization Address City/State/ZIP Code Phon e Number [place] [phone] [address] (ABNORMAL) pro-Brain Natriuretic Peptide [...] City/[facility]/[place] [address] documented in this encounter Visit Diagnoses Diagnosis Chronic systolic heart failure documented in this encounter Care Teams Radial Router Operator Relationship Specialty Start Date End Date Lovely Vicente MD PCP - General 04/16/[address] [place] [address] documented as of this encounter
--- OUTSIDE RECORDS SUMMARY | 2022-04-20 08:09 | XMS_ITS | Encounter Summary ---
:1945 Author Organization [facility] [place] [address] Care Team Providers Name Role Phone Lovely Vicente MD Primary Care Provider Encounter Details Date Type Department Care Team Description 02/19/2022 Laboratory Appointment Lab 3L [facility] [place] [phone] Social History Tobacco Use Types Packs/Day Years [...] MD [facility] [place] [address] (Wo rk) 05/28/2022 Laboratory Appointment Lab 05/28/2022 Office Visit Cardiology Zulma Dolan MD [facility] [place] [address] Liz Poole PA [facility] [place] [address] 06/10/2022 Office Visit Dermatology Laura Scherer MD [facility] DR [address] [place] [address] (Wo rk) documented as of this encounter [...] (ABNORMAL) Differential, Automated (02/19/2022 8:06 AM EDT) [facility] gist Method Time Signature Neutrophils % 76.0 % [facility] Neutr Abs (ANC) 5.49 1.70 - [facility] 6.10 [facility] x10(3)/[facility] LABORATORY Lymphocytes % 10.8 % [facility] Lymphocytes Abs 0.8 (L) 0.9 - 3.2 [facility] x10(3)/[facility] LABORATORY Monocytes % 10.2 % [facility] Monocyte Abs 0.7 0.3 - 0.9 [facility] x10(3)/[facility] LABORATORY Eosinophils % 1.2 % [facility] Eosinophils Abs 0.1 0.0 - 0.4 [facility] x10(3)/[facility] LABORATORY Basophils % 0.8 % [facility] Basophils Abs 0.1 0.0 - 0.1 [facility] x10(3)/[facility] LABORATORY Immature Gran % 1.00 % [...] Address City/State/[place] [address] (ABNORMAL) Hemogram (02/19/2022 8:06 AM EDT) Analysis Performed At Patho logist Time Signature WBC 7.2 4.0 - 9.5 [facility] x10(3)/[facility] LABORATORY RBC 4.41 (L) 4.58 - [facility] 5.54 [facility] x10(6)/[facility] LABORATORY Hemoglobin 13.2 (L) 13.7 - [facility] 16.[facility] g/dL [facility] Hematocrit 40.9 40.5 - [facility] 48.5 % [facility] MCV 92.7 82.9 - [facility] 93.1 [facility] LABORATORY MCH 29.9 27.5 - [facility] 32.1 pg [facility] LABORATORY MCHC 32.3 32.0 - [facility] 35.7 g/dL [facility] LAB[facility]ORY Platelets 191 145 - 357 [facility] x10(3)/[facility] LABORATORY RDWSD 53.6 (H) 36.0 - [facility] 45.0 [facility] LABORATORY RDWCV 15.6 (H) 11.4 - [facility] 13.8 % [facility] LABORATORY MPV 8.7 7.6 - 12.9 [facility] LABORATORY nRBC % Auto 0.0 % [facility] nRBC Abs Auto 0.000 0.000 - [facility] 0.000 [facility] x10(3)/[facility] LABORATORY Specimen Anatomical Collection Method Collection Time Receive d Time (Source) Location / / Volume Laterality Blood 02/19/2022 8:06 AM 2 8:09 EDT AM EDT Resulting Agency Comment Spec In Lab Liz BROWN HEMATOLOGY ORDERABLES Performing Organization Address City/[facility]/ZIP [place] [address] (ABNORMAL) pro-Brain Natriuretic Peptide [...] Organization Address City/State/ZIP [place] [address] (ABNORMAL) Basic Metabolic Panel (non-fasting) (02/19/2022 8:06 AM EDT) P athologist Signature Glucose Lvl 139 65 - 199 [facility] mg/dL [facility] Comment: Diabetes: >=200 mg/dL plus symp toms BUN 31 (H) 10 - 20 mg/dL [facility] Creatinine 1.53 (H) 0.80 - 1.50 mg/dL [facility] [...] Address City/State/[place] [address] documented in this encounter Visit Diagnoses Diagnosis Chronic systolic heart failure documented in this encounter Care Teams Technology Lead Relationship Specialty Start Date End Date Lovely Vicente MD PCP - General 04/16/[address] [place] [address] documented as of this encounter
--- OUTSIDE RECORDS SUMMARY | 2022-04-20 08:09 | XMS_ITS | Encounter Summary ---
:1945 Author Organization [facility] [place] [address] Care Team Providers Name Role Phone Lovely Vicente MD Primary Care Provider Reason for Visit Reason Comments Medication Refill Encounter Details Date Type Department Care Team Description 04/07/2022 Refill Cardiology at [facility] Janneth Padilla PA Medication Refill [facility] [place] [address] CARDIOLOGY DEPT. [phone] [place], [place] [address] (Wo rk) Social History Tobacco [...] Dolan MD [facility] [place], [place] [address] (Wo rk) 05/28/2022 Laboratory Appointment Lab 05/28/2022 Office Visit Cardiology Zulma Dolan MD [facility] [place] [address] Liz Poole PA [facility] [place] [address] 06/10/2022 Office Visit Dermatology Laura Scherer MD [facility] DR [address] [place], [place] [address] (Wo rk) documented as of this encounter Visit Diagnoses Not on filedocumented in this encounter Care Teams Multicut Line Operator Relationship Specialty Start Date End Date Lovely Vicente MD PCP - General 04/16/[address] [place] [address] [address] [place] [address] documented as of this encounter
--- OUTSIDE RECORDS SUMMARY | 2022-04-20 08:09 | XMS_ITS | Encounter Summary ---
:1945 Author Organization [facility] [place] [address] Care Team Providers Name Role Phone Lovely Vicente MD Primary Care Provider Encounter Details Date Type Department Care Team Description 12/12/[address] [facility] [place] [address] Social History Tobacco Use Types Packs/Day [...] - 12/12/2021 11:36 AM EDT RTC to Nov[facility] regarding pharmacists questions as to whether the [...] MD [facility] [address] [place] [address] (Wo rk) 05/28/2022 Laboratory Appointment Lab 05/28/2022 Office Visit Cardiology Zulma Dolan MD [facility] [place] [address] Liz Poole PA [facility] [place] [address] 06/10/2022 Office Visit Dermatology Laura Scherer MD [facility] DR [address] [place], [place] [address] (Wo rk) documented as of this encounter Visit Diagnoses Not on filedocumented in this encounter Care Teams Form Tamping Machine Operator Relationship Specialty Start Date End Date Lovely Vicente MD PCP - General 04/16/[address] [place] [address] documented as of this encounter
--- OUTSIDE RECORDS SUMMARY | 2022-04-20 08:09 | XMS_ITS | Encounter Summary ---
:1945 Author Organization [facility] [place] [address] Care Team Providers Name Role Phone Lovely Vicente MD Primary Care Provider Encounter Details Date Type Department Care Team Description 01/28/2022 Orders Only Public Address Technician Zulma Finch ASCVD (art eriosclerotic [facility] cardiovascular disease) [facility] [place] [address] [place], [place] [phone] (Work) [phone] Social History Tobacco Use Types Packs/Day Years [...] MD [facility] [address] [place] [address] (Wo rk) 05/28/2022 Laboratory Appointment Lab 05/28/2022 Office Visit Cardiology Zulma Dolan [place] [address] Liz Poole PA [facility] [place] [address] 06/10/2022 Office Visit Dermatology Laura Scherer MD [facility] DR [address] [place], [place] [address] (Wo rk) documented as of this encounter Results (ABNORMAL) Basic Metabolic Panel (non-fasting) (01/30/2022 7:19 AM EDT) athologist Signature Glucose Lvl 237 (H) 65 - 199 [facility] mg/dL [facility] Comment: Diabetes: >=200 mg/dL plus symp toms BUN 34 (H) 10 - 20 mg/dL [facility] Creatinine 1.45 0.80 - 1.50 mg/dL [facility] [...] Organization Address City/State/[place] [address] documented in this encounter Visit Diagnoses Diagnosis ASCVD (arteriosclerotic cardiovascular d isease) Unspecified cardiovascular disease documented in this encounter Care Teams Accounting Instructor Relationship Specialty Start Date End Date Lovely Vicente MD PCP - General 04/16/[address] [place] [address] documented as of this encounter
--- OUTSIDE RECORDS SUMMARY | 2022-04-20 08:09 | XMS_ITS | Encounter Summary ---
:1945 Author Organization [facility] Address [facility] [place] [address] Care Team Providers Name Role Phone Lovely Vicente MD Primary Care Provider Reason for Visit Reason Comments Prior Authorization Entresto 24-26mg tablets Encounter Details Date Type Department Care Team Description 02/20/2022 Specialty Pharmacy Pharmacy at [facility] Lamberto Smith Prior Authorization [facility] J (Entresto 24-26mg Drive tablets) [place] [phone] Social History Tobacco Use Types Packs/Day Years [...] Don Fatima Patient : 1945 Patient Address: [address] [place] [address] [place] [address] (home) Medication Name: ENTRESTO 24 MG-26 MG TABLET Medication ID: [id number] Patient Location: [facility] CARDIOLOGY 4A Patient Location Comment: Medication Strength Frequency Requested: Entresto 24-26mg tablets / One tablet twice daily Qty/Day Supply: New Start: New to Therapy Diagnosis & ICD-10 Code: Chronic systolic heart failure, I50.22 Subscriber Insurance: [facility] Subscriber Insurance Comment: Fax: Physician: LIZ CARRERA Physician Comment : PA Status: NO PA REQUIRED Insurance mandated Pharmacy: Unknown Fillable at [facility]: Yes Insurance requirements/notes: None Copay: $119.01 (goes to coverage gap/odalys monteiro) Copay assistance: [employer] [place] Copay assistance comment: If cost isn't affordable, then we'll suggest enrollment in the currently open [facility] Heart Failure zoila, which provides up to $1000 in copay assistance. If zoila closes, or doesn't work out, then the patient can attempt enrollment in the batch trucker assistance program, the [employer] Patient Assistance [employer] (NPAF). At which point we'd refer to [facility] for assistance with enrollment. Pharmacy staff will [...] Dolan MD [facility] Dr [place], [place] [address] (Wo rk) 05/28/2022 Laboratory Appointment Lab 05/28/2022 Office Visit Cardiology Zulma Dolan MD [facility] [place] [address] Liz Carrera PA [facility] [place] [address] 06/10/2022 Office Visit Dermatology Laura Scherer MD [facility] ER DR [address] [place], [place] [address] (Wo rk) documented as of this encounter Visit Diagnoses Not on filedocumented in this encounter Care Teams Application Chemist Relationship Specialty Start Date End Date Lovely Vicente MD PCP - General 04/16/[address] [place] [address] documented as of this encounter
--- OUTSIDE RECORDS SUMMARY | 2022-04-20 08:09 | XMS_ITS | Encounter Summary ---
:1945 Author Organization [facility] Address [facility] [place] [address] Care Team Providers Name Role Phone Lovely Vicente MD Primary Care Provider Reason for Visit Auth/Cert Specialty Diagnoses / Procedures Referred By Contact Refer red To Contact Diagnoses ASCVD (arteriosclerotic cardiovascular disease) [I25.10] Vitaliy Nobles MD [facility] Procedures PRO PERC TRLUML CORONARY STENT W/ANGIO ONE ART/BRANCH CARDIAC CATHETERIZATION STENT PLACEMENT-SINGLE MAJOR CORONARY ARTERY OR BRANCH [facility] [place] [address] Referral ID Status Reason Start Date Expiration Date Visits Requ ested Visits Authorized [id number] 1 1 Encounter Details Date Type Department Care Team Description 01/30/2022 Surgery School Director Asa Coulter MD CARDIAC CATHETERIZATION [facility] [place] [address] [place] [address] [phone] (Wo rk) Social History Tobacco Use Types [...] and Clopidogrel. Please follow up with your edge inker in the next 4-6 weeks. We have [...] J, RN - 01/30/2022 4:54 PM EDT [facility] Short Stay Unit Discharge Note [...] the original note were not included. Don Fatmia is a 76 y.o. male referred for [...] included. [facility] [place] [address] CORONARY ANGIOGRAM AND PERCUTANEOUS CORONARY INTERVENTION REPORT Patient: Don Fatima : 1945 MR number: [id number] Date of Service: 01/30/2022 Improvement Nurse: Vitaliy Nobles MD Fellow: KEYON Elizabeth INDICATION: [...] a long 2.0 x 26 mm HARDEEP Gresham TUCKER stent and positioned it at the [...] using a 2.0 x 26 mm HARDEEP Gresham TUCKER stent. This completes the revascularization ofall [...] MD [facility] er Dr [place] [address] (Wo rk) 05/28/2022 Laboratory Appointment Lab 05/28/2022 Office Visit Zulma Garrison MD [facility] [place] [address] Liz Poole PA [facility] [place] [address] 06/10/2022 Office Visit Dermatology Laura Scherer MD [facility] ER [address]-DERMAT [facility] [place] [address] (Wo rk) Scheduled Orders Name [...] Abs (ANC) 3.96 1.70 - [facility] 6.10 [facility] x10(3)/[facility] LABORATORY Lymphocytes % 16.3 % [facility] LABORATORY Lymphocytes Abs 0.9 0.9 - 3.2 [facility] x10(3)/[facility] LABORATORY Monocytes % 10.0 % [facility] LABORATORY Monocyte Abs 0.6 0.3 - 0.9 [facility] x10(3)/[facility] LABORATORY Eosinophils % 0.5 % [facility] LABORATORY Eosinophils Abs 0.0 0.0 - 0.4 [facility] x10(3)/[facility] LABORATORY Basophils % 0.5 % [facility] LABORATORY Basophils Abs 0.0 0.0 - 0.1 [facility] x10(3)/[facility] LABORATORY Immature Gran % 0.90 [...] 0.05 (H) 0.00 - 0.04 x10(3)/[facility] LABORATORY Specimen Anatomical Collection Method Collection Time Receive d Time (Source) Location / / Volume Laterality Blood 01/30/2022 2:12 PM 2 2:37 EDT PM EDT Resulting Agency Comment Spec In Lab Eddi Elizabeth Jr., MD HEMATOLOGY ORDERABLES Performing Organization Address City/State/ZIP [place] [address] (ABNORMAL) Hemogram (01/30/2022 2:12 PM EDT) Analysis Performed At Patho logist Time Signature WBC 5.5 4.0 - 9.5 [facility] x10(3)/[facility] LABORATORY RBC 4.30 (L) 4.58 - [facility] 5.54 [facility] x10(6)/[facility] LABORATORY Hemoglobin 12.7 (L) 13.7 - [place] 16.5 g/dL [facility] LABORATORY Hematocrit 39.4 (L) 40.5 - [place] 48.5 % [facility] LABORATORY MCV 91.6 82.9 - [place] 93.1 [facility] LABORATORY MCH 29.5 27.5 - [place] 32.1 pg [facility] LABORATORY MCHC 32.2 32.0 - [place] 35.7 g/dL [facility] LABORATORY Platelets 172 145 - 357 [facility] x10(3)/[facility] LABORATORY RDWSD 54.5 (H) 36.0 - [place] 45.0 [facility] LABORATORY RDWCV 16.4 (H) 11.4 - [place] 13.8 % [facility] LABORATORY MPV 9.2 7.6 - 12.9 [place] [facility] LABORATORY nRBC % Auto 0.0 % [facility] LABORATORY nRBC Abs Auto 0.000 0.000 - [place] 0.000 [facility] x10(3)/[facility] LABORATORY Specimen Anatomical Collection Method Collection Time Receive d Time (Source) Location / / Volume Laterality Blood 01/30/2022 2:12 PM 2 2:37 EDT PM EDT Resulting Agency Comment Spec In Lab Eddi Elizabeth Jr., MD HEMATOLOGY ORDERABLES Performing Organization Address City/State/ZIP [place] [address] (ABNORMAL) Basic Metabolic Panel (non-fasting) (01/30/2022 2:12 PM EDT) athologist Signature Glucose Lvl 163 65 - 199 [facility]dL [facility] LABORATORY Comment: Diabetes: >=200 mg/dL plus symp toms BUN 30 (H) 10 - 20 mg/dL [facility] LABORATORY Creatinine 1.47 0.80 - 1.50 [...] Comment: This patient's estimated GFR was calcula vlda using the 2020 CKD-EPI equation. The estimated [...] Organization Address City/State/ZIP [place] [address] POCT Glucose (01/30/2022 1:41 PM EDT) athologist Signature POC Glucose 148 65 - 199 [facility] mg/dL [facility] LABORATORY [...] [facility]/ZIP Code Phon e Number [address] POCT Glucose (01/30/2022 10:48 AM EDT) P athologist Signature POC Glucose 193 65 - 199 [facility] LABORATORY Comment: Supplemental ranges: <140 mg/dL before meals <180 mg/dL all other times of the day Specimen Anatomical Collection Method Collection Time Receive d Time (Source) Location / / Volume Laterality Blood 01/30/2022 10:48 01/30/2022 AM EDT 10:48 AM EDT Vitaliy Nobles MD POINT OF CARE TEST ORDERABLE S Performing Organization Address [facility] [place] [address] EKG 12 Lead (01/30/2022 10:33 AM EDT) Component Value Ref Range Test Analysis Performed Pathologis t Method Time At Signature Ventricular rate 64 BPM MUSE SYSTEM Atrial Rate 64 BPM MUSE SYSTEM P-R Interval 162 ms MUSE SYSTEM QRS Duration 94 ms MUSE SYSTEM Q-T Interval 422 ms MUSE SYSTEM QTC Calculated 435 ms MUSE SYSTEM (Bezet) Calculated P [place] 41 degrees MUSE SYSTEM Calculated R [place] -27 degrees MUSE SYSTEM Calculated T [place] 104 degrees MUSE SYSTEM INTERPRETATION Normal sinus rhythm MUSE SYSTEM Anterolateral infarct (cited on or before 09-DEC-2021) Abnormal ECG When compared with ECG of 10-DEC-2021 11:17, No significant change was found Confirmed by Gary Perez ([id number]) on 01/30/2022 5:57:5 2 PM Specimen Anatomical Collection Method Collection Time Receive d Time (Source) Location / / Volume Laterality 01/30/2022 10:33 01/30/2022 5:57 AM EDT PM EDT Vitaliy Nobles MD ECG ORDERABLES Performing Organization Address City/[facility]/ZIP Code Phon e Number MUSE SYSTEM CARDIAC CATHETERIZATION (01/30/2022 10:16 AM EDT) Anatomical Region Laterality Modality Other Specimen (Source) Anatomical Location Collection Method / Collectio n Time Received Time / Laterality Volume Narrative 01/30/2022 2:09 PM EDT ?[facility] ? Cardiac Cathete rization/Intervention Report ? Patient Name: Don Fatima. ? Procedure Date: 01/30/2022 ? A #: [id number] ? Primary Physician: Nobles, Vitaliy P ? Case #: [id number] ? File Name: [id number] ? Catheterization Order Number: [id number] ? [facility] ? Final Report [place], [place] ? Patient Name: ? Don E. Stewa rt ? ID#: ?[id number] ? : ?1945 ? Procedure Date: ? [...] was Urgent. The indication for ?the laboratory chief visit is stable kn own [...] guiding catheter an d a 3.[address] ??20 Mhz ?using Manual pullback. ??Imagin [...] A premounted 2.00 x 26 mm Hardeep Gresham (TUCKER) ? was deployed wi a maximum [...] Wedelivered along 2.0 x 26 mm HARDEEP Gresham ? TUCKER stent and p ositioned it [...] administered prior to arrival in the laboratory chief. ?Recommended anti-platelet/anti- thrombotic regimen: ?Continue [...] may require ?modification of this regimen. [facility] ?questions. ?The 1 [...] using a 2.0 x 26 mm HARDEEP Gresham TUCKER stent. ?This completes the revasculariz ation [...] Procedure Note Vitaliy Nobles MD - 03/06/2022 [facility] Cardiac Catheterization/Intervention Re port Patient Name: Don Fatima Procedure Date: 01/30/2022 A #: [id number] Primary Physician: Vitaliy Nobles Case #: [id number] File Name: [id number] Catheterization Order Number: [id number] [facility] Final [facility] [place], [place] Patient Name: Don Fatima ID#: [id number] : 1945 Procedure Date: January 30, 2022 Case #: [id number] Room: 1 Case Physician: Vitaliy Nobles M.D. Start: 08:54 Fellow: Edid Elizabeth Jr., M.D. Adm ission: 01/30/2022 Discharge: [...] was Urgent. The indication for the laboratory chief visit is stable known CAD. Chest pain [...] 1.5 guiding catheter and a 3.[address] 20 Mhz using Manual pullback. Imaging [...] A premounted 2.00 x 26 mm Hardeep Gresham (TUCKER) was deployed with a maximum inflation [...] along 2. 0 x 26 mm HARDEEP Gresham TUCKER stent and positioned it at the [...] prior t o arrival in the laboratory chief. Recommended anti-platelet/anti-thrombot ic regimen: Continue aspirin 81 [...] using a 2.0 x 26 mm HARDEEP Gresham TUCKER stent. This completes the revascularization of [...] 212 (H) 65 - 199 [facility] mg/dL [facility] LABORATORY Comment: Supplemental ranges: <140 mg/dL before meals <180 mg/dL all other times of the day Specimen Anatomical Collection Method Collection Time Receive d Time (Source) Location / / Volume Laterality Blood 01/30/2022 9:04 AM 2 9:04 EDT AM EDT Viatliy Nobles MD POINT OF CARE TEST ORDERABLE S Performing Organization Address City/State/[place] [address] (ABNORMAL) POCT Glucose (01/30/2022 8:10 AM EDT) athologist Signature POC Glucose 224 (H) 65 - 199 [facility] mg/dL [facility] LABORATORY Comment: Supplemental ranges: <140 mg/dL before meals <180 mg/dL all other times of the day Specimen Anatomical Collection Method Collection Time Receive d Time (Source) Location / / Volume Laterality Blood 01/30/2022 8:10 AM 2 8:10 EDT AM EDT Vitaliy Nobles MD POINT OF CARE TEST ORDERABLE S Performing Organization Address City/State/[place] [address] documented in this encounter Visit Diagnoses Diagnosis ASCVD (arteriosclerotic cardiovascular d isease) Unspecified cardiovascular disease 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 ASHD (arteriosclerotic heart disease) Coronary atherosclerosis of unspecified type of vessel, [place] or graft ASCVD (arteriosclerotic cardiovascular d isease) Unspecified cardiovascular disease documented in this encounter Admitting Diagnoses Diagnosis CAD (coronary artery disease) Coronary atherosclerosis of unspecified type of vessel, [place] or graft documented in this encounter Administered [...] Given 02/2022 10:11 AM EDT 100 mcg (CUTTING PRESSMAN) ONCE PRN, Starting on Wed01/30/22 at 0927, [...] Procedure), Routine niCARdipine (Cardene) (100 mcg/mL) dilution (CUTTING PRESSMAN) (CANCELED ) 0927 (Given - Provider: Vitaliy [...] (Intra-Procedure) documented in this encounter Care Teams Chicken Handler Relationship Specialty Start Date End Date Lovely Vicente MD PCP - General 04/16/[address] [place] [address] documented as of this encounter
--- OUTSIDE RECORDS SUMMARY | 2022-04-20 08:09 | XMS_ITS | Encounter Summary ---
:1945 Author Organization [facility] [place] [address] Care Team Providers Name Role Phone Lovely Vicente MD Primary Care Provider Reason for Visit Auth/Cert Specialty Diagnoses / Procedures Referred By Contact Refer red To Contact Diagnoses ASCVD (arteriosclerotic cardiovascular disease) [I25.10] Vitaliy Nobles MD [facility] Procedures PRO PERC TRLUML CORONARY STENT W/ANGIO ONE ART/BRANCH CARDIAC CATHETERIZATION STENT PLACEMENT-SINGLE MAJOR CORONARY ARTERY OR BRANCH [facility] [place] [address] Referral ID Status Reason Start Date Expiration Date Visits Requ ested Visits Authorized [id number] 1 1 Encounter Details Date Type Department Care Team Description 01/30/2022 Laboratory Lab 3L [place] ASCVD (arterios clerotic Appointment [facility] cardiovas cular disease) [place] [address] Social History Tobacco Use Types Packs/Day Years [...] Cardiology Zulma Dolan MD [facility] [place], [place] [address] (Wo rk) 05/28/2022 Laboratory Appointment Lab 05/28/2022 Office Visit Cardiology Zulma Dolan MD [facility] [place] [address] Liz Poole PA [facility] [place] [address] 06/10/2022 Office Visit Dermatology Laura Scherer MD [facility] DR TEJA GR-DERMAT [place], [place] [address] (Wo rk) documented as [...] (ABNORMAL) Differential, Automated (01/30/2022 7:19 AM EDT) [facility] gist Method Time Signature Neutrophils % 77.9 % [facility] LABORATORY Neutr Abs (ANC) 5.31 1.70 - [facility] 6.10 [facility] x10(3)/[facility] LABORATORY Lymphocytes % 12.0 % [facility] LABORATORY Lymphocytes Abs 0.8 (L) 0.9 - 3.2 [facility] x10(3)/[facility] LABORATORY Monocytes % 8.1 % [facility] LABORATORY Monocyte Abs 0.6 0.3 - 0.9 [facility] x10(3)/[facility] LABORATORY Eosinophils % 0.4 % [facility] LABORATORY Eosinophils Abs 0.0 0.0 - 0.4 [facility] x10(3)/[facility] LABORATORY Basophils % 0.6 % [facility] LABORATORY Basophils Abs 0.0 0.0 - 0.1 [facility] x10(3)/[facility] LABORATORY Immature Gran % 1.00 % [facility] [...] Gran Abs 0.07 (H) 0.00 - 0.04 x10(3)/[facility] LABORATORY Specimen Anatomical Collection Method Collection Time Receive d Time (Source) Location / / Volume Laterality Blood 01/30/2022 7:19 AM 7:21 EDT AM EDT Resulting Agency Comment Spec In Lab Zulma BROWN HEMATOLOGY ORDERABLES Performing Organization Address City/State/Z[place] [address] (ABNORMAL) Hemogram (01/30/2022 7:19 AM EDT) Analysis Performed At Patho logist Time Signature WBC 6.8 4.0 - 9.5 [facility] x10(3)/[facility] LABORATORY RBC 4.32 (L) 4.58 - [facility] 5.54 [facility] x10(6)/[facility] LABORATORY Hemoglobin 13.0 (L) 13.7 - [facility] 16.[facility] g/dL [facility] LABORATORY Hematocrit 39.8 (L) 40.5 - [facility] 48.5 % [facility] LABORATORY MCV 92.1 82.9 - [facility] 93.1 fL [facility] LABORATORY MCH 30.1 27.5 - [facility] 32.1 pg [facility] LABORATORY MCHC 32.7 32.0 - [place] 35.7 g/dL [facility] LABORATORY Platelets 172 145 - 357 [facility] x10(3)/[facility] LABORATORY RDWSD 54.5 (H) 36.0 - [place]AN 45.0 [facility] LABORATORY RDWCV 16.2 (H) 11.4 - [facility] 13.8 % [facility] LABORATORY MPV 9.0 7.6 - 12.9 [facility] LABORATORY nRBC % Auto 0.0 % [facility] LABORATORY nRBC Abs Auto 0.000 0.000 - [facility] 0.000 [facility] x10(3)/[facility] LABORATORY Specimen Anatomical Collection Method Collection Time Receive d Time (Source) Location / / Volume Laterality Blood 01/30/2022 7:19 AM 7:21 EDT AM EDT Resulting Agency Comment Spec In Lab Zulma BROWN HEMATOLOGY ORDERABLES Performing Organization Address City/State/[place] [address] (ABNORMAL) Basic Metabolic Panel (non-fasting) (01/30/2022 7:19 AM EDT) P athologist Signature Glucose Lvl 237 (H) 65 - 199 [facility] mg/dL [facility] LABORATORY Comment: Diabetes: >=200 mg/dL plus symp toms BUN 34 (H) 10 - 20 mg/dL [facility] LABORATORY Creatinine 1.45 0.80 - 1.50 mg/dL [facility] [...] City/State/ZIP Code Phon e Number [place] [id number] HOSP[address] LAB[address] documented in this encounter Visit Diagnoses Diagnosis ASCVD (arteriosclerotic cardiovascular d isease) Unspecified cardiovascular disease documented in this encounter Care Teams Patient Safety Sitter Relationship Specialty Start Date End Date Lovely Vicente MD PCP - General 04/16/[address] [place] [address] documented as of this encounter
--- OUTSIDE RECORDS SUMMARY | 2022-04-20 08:09 | XMS_ITS | Encounter Summary ---
:1945 Author Organization [facility] [place] [address] Care Team Providers Name Role Phone Lovely Vicente MD Primary Care Provider Reason for Visit Reason Onset Date Comments Medication Refill 12/12/2021 Torsemide Encounter Details Date Type Department Care Team Description 12/12/2021 Refill Cardiology at [facility] Janneth Padilla, Medication Refill [facility] STEPHANIE (Torsemide) [place] [address] CARDIOLOGY DEPT. [place], [place] [address] (Wo rk) Social History Tobacco [...] MD [facility] er [address] [place], [place] [address] (Wo rk) 05/28/2022 Laboratory Appointment Lab 05/28/2022 Office Visit Cardiology Zulma Dolan MD [facility] [place] [address] Liz Poole PA [facility] [place] [address] 06/10/2022 Office Visit Dermatology Laura Scherer MD [facility] ER DR [address]MAT [place], [place] 0375 (Wo rk) documented as of this encounter Visit Diagnoses Diagnosis Chronic systolic heart failure documented in this encounter Care Teams Lost Charge Card Clerk Relationship Specialty Start Date End Date Lovely Vicente MD PCP - General 04/16/[address] [place] [address] documented as of this encounter
--- OUTSIDE RECORDS SUMMARY | 2022-04-20 08:09 | XMS_ITS | Encounter Summary ---
:1945 Author Organization [facility] [place] [address] Care Team Providers Name Role Phone Lovely Vicente MD Primary Care Provider Encounter Details Date Type Department Care Team Description 02/23/2022 Refill Cardiology at [facility] Liz Poole PA [facility] [place] [address] Cardiology Dept [phone] [place], [place] 0[address] (Wo rk) Social History Tobacco [...] Oneill RPH Transfer of Services Don Fatima [address] [place] [address] [place] [address] Telephone Information: Work Phone Not on file. The [facility] has received a prescription for Entresto for patient Mr. Don Fatima 76 y.o. (1945). The patient requests the prescription to be filled with [facility]. We spoke to patient to notify of this change and to provide number to reach the new filling pharmacy. A copyof patient's medication profile was offered to the accepting pharmacy. Additional instructions provided to patient about transfer: no The patient has been advised to call the [facility] at [phone] with any questionsor concerns on this referral. Thank you, Oxana Oneill RPH 02/23/22 4:26 PM Patient understands no changes to current drug regimen were made at this time. documented in this encounter Plan of Treatment Upcoming Encounters Date Type Specialty Care Team Description 05/28/2022 Appointment Cardiology Zulma Dolan MD [facility] [place], [place] 0[address] (Wo rk) 05/28/2022 Laboratory Appointment Lab 05/28/2022 Office Visit Cardiology Zulma Dolan MD [facility] [place] [address] Liz Poole PA [facility] [place] [address] 06/10/2022 Office Visit Dermatology Laura Scherer MD [facility] DR TE[address] GR[address]DERMAT [place], [place] [address] (Wo rk) documented as of this encounter Visit Diagnoses Not on filedocumented in this encounter Care Teams Cork Sorter Relationship Specialty Start Date End Date Lovely Vicente MD PCP - General 04/16/[address] [place] [address] documented as of this encounter
--- OUTSIDE RECORDS SUMMARY | 2022-04-20 08:09 | XMS_ITS | Encounter Summary ---
:1945 Author Organization [facility] Address [facility] [place] [address] Care Team Providers Name Role Phone Lovely Vicente MD Primary Care Provider Reason for Visit Reason Onset Date Comments Medication Refill 03/06/2022 Metoprolol Succinate Encounter Details Date Type Department Care Team Description 03/06/2022 Refill Cardiology at [facility] Liz Poole PA Medication Refill [facility] (Sd toprolol Succinate) [place] [address] Cardiology Dept [phone] [place], [place] 0[address] (Wo rk) Social History Tobacco [...] [facility] [place], [place] [address] (Wo rk) 05/28/2022 Laboratory Appointment Lab 05/28/2022 Office Visit Cardiology Zulma Dolan MD [facility] [place] [address] Liz Poole PA [facility] [place] [address] 06/10/2022 Office Visit Dermatology Laura Scherer MD [facility] ER [address] [place], [place] [address] (Wo rk) documented as of this encounter Visit Diagnoses Diagnosis Chronic systolic heart failure Cardiomyopathy, ischemic Other specified forms of chronic ischemi c heart disease documented in this encounter Care Teams Critical Care Specialist Relationship Specialty Start Date End Date Lovely Vicente MD PCP - General 04/16/[address] [place] [address] documented as of this encounter
--- OUTSIDE RECORDS SUMMARY | 2022-04-20 08:09 | XMS_ITS | Encounter Summary ---
:1945 Author Organization [facility] [address] Care Team Providers Name Role Phone Lovely Vicente MD Primary Care Provider Encounter Details Date Type Department Care Team Description 12/25/2021 Laboratory Appointment Lab 3L [facility] [place] [id number] Social History Tobacco Use Types Packs/Day Years [...] MD [facility] er [place], [place] [address] (Wo rk) 05/28/2022 Laboratory Appointment Lab 05/28/2022 Office Visit Cardiology Zulma Dolan [place] [facility] [place] [address] Liz Poole PA [facility] [place] [address] 06/10/2022 Office Visit Dermatology Laura Scherer MD [facility] DR [address] [place] [address] (Wo rk) documented as of this encounter [...] (ABNORMAL) Differential, Automated (12/25/2021 7:46 AM EDT) [facility] gist Method Time Signature Neutrophils % 82.6 % [facility] Neutr Abs (ANC) 9.37 (H) 1.70 - [facility] 6.10 [facility] x10(3)/[facility] LABORATORY Lymphocytes % 7.1 % [facility] Lymphocytes Abs 0.8 (L) 0.9 - 3.2 [facility] x10(3)/[facility] LABORATORY Monocytes % 8.8 % [facility] Monocyte Abs 1.0 (H) 0.3 - 0.9 [facility] x10(3)/[facility] LABORATORY Eosinophils % 0.4 % [facility] Eosinophils Abs 0.0 0.0 - 0.4 [facility] x10(3)/[facility] LABORATORY Basophils % 0.4 % [facility] Basophils Abs 0.0 0.0 - 0.1 [facility] x10(3)/[facility] LABORATORY Immature Gran % 0.70 [...] Organization Address City/State/ZIP Code Phon e Number [place] [id number]OS[address] LAB[address] (ABNORMAL) Hemogram (12/25/2021 7:46 AM EDT) Analysis Performed At Patho logist Time Signature WBC 11.4 (H) 4.0 - 9.5 [facility] x10(3)/[facility] LAB[facility]ATORY RBC 4.23 (L) 4.58 - [facility] 5.54 [facility] x10(6)/[facility] LABORATORY Hemoglobin 12.3 (L) 13.7 - [facility] 16.5 g/dL [facility] Hematocrit 37.7 (L) 40.5 - [facility] 48.5 % [facility] MCV 89.1 82.9 - [facility] 93.1 [facility] LABORATORY MCH 29.1 27.5 - [place] 32.1 pg [facility] MCHC 32.6 32.0 - [facility] 35.7 g/dL [facility] Platelets 215 145 - 357 [facility] x10(3)/[facility] LABORATORY RDWSD 49.8 (H) 36.0 - [place] 45.0 [facility] RDWCV 15.2 (H) 11.4 - [facility] [place] 13.8 % [facility] MPV 9.2 7.6 - 12.9 [facility] LABORATORY nRBC % Auto 0.0 % [facility] nRBC Abs Auto 0.000 0.000 - [facility] 0.000 [facility] x10(3)/[facility] LABORATORY Specimen Anatomical Collection Method Collection Time Receive d Time (Source) Location / / Volume Laterality Blood 12/25/2021 7:46 AM 8:01 EDT AM EDT Resulting Agency Comment Spec In Lab Liz BROWN HEMATOLOGY ORDERABLES Performing Organization Address City/State/[place] [address] (ABNORMAL) Basic Metabolic Panel (non-fasting) (12/25/2021 7:46 AM EDT) P athologist Signature Glucose Lvl 272 (H) 65 - 199 [facility] mg/dL [facility] Comment: Diabetes: [...] Plunkett MD CHEMISTRY ORDERABLES Performing Organization Address City/[facility]/[place] [address] (ABNORMAL) pro-Brain Natriuretic Peptide (12/25/2021 7:46 AM EDT) P athologist Signature ProBNP 1,380 (H) <=124 [facility] pg/mL [facility] Specimen Anatomical Collection Method Collection Time Receive d Time (Source) Location / / Volume Laterality Blood 12/25/2021 7:46 AM 2 8:01 EDT AM EDT Resulting Agency Comment Spec In Lab Zulma Plunkett MD CHEMISTRY ORDERABLES Performing Organization Address City/[facility]/ZIP [facility] [place] [address] documented in this encounter Visit Diagnoses Diagnosis Chronic systolic heart failure documented in this encounter Care Teams Coffee Machine Technician Relationship Specialty Start Date End Date Lovely Vicente MD PCP - General 04/16/[address] [place] [address] documented as of this encounter
--- OUTSIDE RECORDS SUMMARY | 2022-04-20 08:09 | XMS_ITS | Encounter Summary ---
:1945 Author Organization [facility] [place] [address] Care Team Providers Name Role Phone Lovely Vicente MD Primary Care Provider Reason for Visit Reason Onset Date Comments Medication Refill 03/11/2022 Encounter Details Date Type Department Care Team Description 03/06/2022 [place]ill [place] [facility] [place] Poole PA Medication Refill [facility] Jorge mcnamara [facility] [place] [address] Cardiology Dept [phone] [place], [place] [address] (Wo rk) Social History Tobacco [...] MD [facility] er [place], [place] [address] (Wo rk) 05/28/2022 Laboratory Appointment Lab 05/28/2022 Office Visit Cardiology Zulma Dolan MD [facility] [place] [address] [facility] [place] [address] 06/10/2022 Office Visit Dermatology Laura Scherer MD [facility] ER DR [address] [place], [place] [address] (Wo rk) documented as of this encounter Visit Diagnoses Not on filedocumented in this encounter Care Teams Supervisor Accounts Receivable Relationship Specialty Start Date End Date Lovely Vicente MD PCP - General 04/16/[address] [place] [address] documented as of this encounter
--- OUTSIDE RECORDS SUMMARY | 2022-04-20 08:09 | XMS_ITS | Encounter Summary ---
:1945 Author Organization [facility] [place] [address] Care Team Providers Name Role Phone Lovely Vicente MD Primary Care Provider Encounter Details Date Type Department Care Team Description 02/24/2022 Notes Only [place] [address] Social History Tobacco Use Types Packs/Day [...] return to the Medication Assistance Program. The [facility] office will follow up with the patient in 5 business days to see if the patient has received the application and if they have any questions. documented in this encounter Plan of Treatment Upcoming Encounters Date Type Specialty Care Team Description 05/28/2022 Appointment Cardiology Zulma Dolan MD [facility] [address] [place], [place] [address] (Wo rk) 05/28/2022 Laboratory Appointment Lab 05/28/2022 Office Visit Cardiology Zulma Dolan [place] [address] Liz Poole PA [facility] [place] [address] 06/10/2022 Office Visit Dermatology Laura Scherer MD [facility] ER DR [address] [place], [place] [address] (Wo rk) documented as of this encounter Visit Diagnoses Not on filedocumented in this encounter Care Teams Home Specialist Relationship Specialty Start Date End Date Lovely Vicente MD PCP - General 04/16/[address] [place] [address] documented as of this encounter
--- OUTSIDE RECORDS SUMMARY | 2022-04-20 08:09 | XMS_ITS | Encounter Summary ---
:1945 Author Organization [place] [address] Care Team Providers Name Role Phone Lovely Vicente MD Primary Care Provider Encounter Details Date Type Department Care Team Description 12/15/2021 Telephone Cardiology at [facility] Barbara Mera, [place] [address] Social History Tobacco Use Types Packs/Day [...] Appointment Cardiology Zulma Dolan MD [facility] [place], [place] [address] (Wo rk) 05/28/2022 Laboratory Appointment Lab 05/28/2022 Office Visit Cardiology Zulma Dolan [place] [address] Liz Poole PA [facility] [place] [address] 06/10/2022 Office Visit Dermatology Laura Scherer MD [facility] DR [address] [place], [place] [address] (Wo rk) documented as of this encounter Visit Diagnoses Not on filedocumented in this encounter Care Teams Rest Room Attendant Relationship Specialty Start Date End Date Lovely Vicente MD PCP - General 04/16/15 [facility] [address] [place] [address] documented as of this encounter
--- OUTSIDE RECORDS SUMMARY | 2022-04-20 08:09 | XMS_ITS | Encounter Summary ---
:1945 Author Organization [facility] [place] [address] Care Team Providers Name Role Phone Lovely Vicente MD Primary Care Provider Reason for Visit Reason Onset Date Comments Advice Only 01/28/2022 Encounter Details Date Type Department Care Team Description 01/28/2022 Telephone Cardiology at [facility] Chitra Angela, numerical control [place] [address] Social History Tobacco Use Types Packs/Day [...] Fatima assists patient with medications. Number for cardiac cath lab manager scheduling given and she will call them to verify this information Meds reviewed. As per our form from cardiac cath lab manager Eliquis hold for 48 hours prior. Pt [...] MD [facility] Dr [place], [place] [address] (Wo rk) 05/28/2022 Laboratory Appointment Lab 05/28/2022 Office Visit Cardiology Zulma Dolan MD [facility] [address] Liz Poole PA [facility] [place] [address] 06/10/2022 Office Visit Dermatology Laura Scherer MD [facility] DR [address] [place], [place] [address] (Wo rk) documented as of this encounter Visit Diagnoses Not on filedocumented in this encounter Care Teams Welding Machine Operator/Tender Relationship Specialty Start Date End Date Lovely Vicente MD PCP - General 04/16/[address] [place] [address] documented as of this encounter
--- OUTSIDE RECORDS SUMMARY | 2022-04-20 08:09 | XMS_ITS | Encounter Summary ---
:1945 Author Organization [facility] [place] [address] Care Team Providers Name Role Phone Lovely Vicente MD Primary Care Provider Encounter Details Date Type Department Care Team Description 02/24/2022 Orders Only [facility] [place] [facility] [place] Poole, Chronic systolic heart [facility] [place] [address] Cardiology Dept [place], [place] [address] Social History Tobacco Use Types [...] Dolan MD [facility] er [address] [place], [place] [address] (Wo rk) 05/28/2022 Laboratory Appointment Lab 05/28/2022 Office Visit Cardiology Zulma Dolan MD [facility] [place] [address] Liz Poole PA [facility] [place] [address] 06/10/2022 Office Visit Dermatology Laura Scherer MD [facility] ER DR [address] [place], [place] [address] (Wo rk) documented as of this encounter Visit Diagnoses Diagnosis Chronic systolic heart failure documented in this encounter Care Teams Certified Legal Investigator Relationship Specialty Start Date End Date Lovely Vicente MD PCP - General 04/16/[address] [place] [address] documented as of this encounter
--- OUTSIDE RECORDS SUMMARY | 2022-04-20 08:09 | XMS_ITS | Encounter Summary ---
:1945 [place] [address] Care Team Providers Name Role Phone Lovely Vicente MD Primary Care Provider Reason for Visit Reason Onset Date Comments Follow-up 03/06/2022 Dave Bueno Encounter Details Date Type Department Care Team Description 03/06/2022 Telephone Cardiology at [facility] Martha Comer, Follow-up ([facility] VAMSI Start) [place] [address] Social History Tobacco Use Types Packs/Day [...] pt had gotten his labs done at [facility] yesterday. Results received, scanned and [...] Dolan MD [facility] Dr [place], [place] [address] (Wo rk) 05/28/2022 Laboratory Appointment Lab 05/28/2022 Office Visit Cardiology Zulma Dolan MD [place] [address] Liz Poole PA [facility] [place] [address] 06/10/2022 Office Visit Dermatology Laura Scherer MD [facility] DR [address] [place], [place] [address] (Wo rk) documented as of [...] filedocumented in this encounter Care Teams Legal Support Specialist Relationship Specialty Start Date End Date Lovely Vicente MD PCP - General 04/16/[address] [place] [address] documented as of this encounter
--- OUTSIDE RECORDS SUMMARY | 2022-04-20 08:09 | XMS_ITS | Encounter Summary ---
:1945 Author Organization [place] [address] Care Team Providers Name Role Phone Lovely Vicente MD Primary Care Provider Reason for Visit Reason Onset Date Comments Follow-up 02/23/2022 Medication adjustmen t and new med Encounter Details Date Type Department Care Team Description 02/23/2022 Telephone Cardiology at [facility] Martha Comer, Follow-up ([facility] RN adjustbrandon t and new med) [place] [address] Social History Tobacco Use Types Packs/Day [...] the order for BMP and sent to [facility]. will call [facility] to make an appointment for next [...] tablet) daily. She will correct his pill financial planner to the new dose. Will need to check with STEPHANIE Poole about repeat BMP to recheck K+ level. If yes he will get the test done at [facility]. They are aware that he will need to make an appt at [facility] to get the test done. Entresto: [...] if he qualifies for assistance from the [employer]. She is thankful for the assistance, as he is taking insulin that is very expensive too. Instructed to call this content writer, if he does qualify for assistance from [employer] and that he has gotten the medication [...] Cardiology Zulma Dolan MD [facility] [place], [place] [address] (Wo rk) 05/28/2022 Laboratory Appointment Lab 05/28/2022 Office Visit Cardiology Zulma Dolan MD [facility] [place] [address] Liz Poole PA [facility] [place] [address] 06/10/2022 Office Visit Dermatology Laura Scherer MD [facility] [address] [place], [place] [address] (Wo rk) documented as of this encounter Visit Diagnoses Not on filedocumented in this encounter Care Teams Blog Writer Relationship Specialty Start Date End Date Lovely Vicente MD PCP - General 04/16/[address] [place] [address] documented as of this encounter
--- OUTSIDE RECORDS SUMMARY | 2022-04-20 08:09 | XMS_ITS | Encounter Summary ---
:1945 Author Organization [facility] Address [place] [address] Care Team Providers Name Role Phone Lovely Vicente MD Primary Care Provider Reason for Visit Auth/Cert Specialty Diagnoses / Procedures Referred By Contact Refer red To Contact Diagnoses ASCVD (arteriosclerotic cardiovascular disease) [I25.10] Vitaliy Nobles MD [facility] Procedures PRO PERC TRLUML CORONARY STENT W/ANGIO ONE ART/BRANCH CARDIAC CATHETERIZATION STENT PLACEMENT-SINGLE MAJOR CORONARY ARTERY OR BRANCH 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 Please follow up with your cement finisher in the next 4-6 weeks. We have made a referral to cardiac rehab. Please see the attached instructions regarding care to your right wrist access site. AttachmentsThe following attachments cannot be sent through Care Everywhere. Coronary Angiogram: Post-op (Persian)documented in this encounter Medications at Time of [...] Murray RN - 01/30/2022 4:54 PM EDT [facility] Short Stay Unit Discharge Note All relevant [...] presenting for staged PCI to [facility]. The pt states he has been ok. [...] presenting for staged PCI to [facility]. The indications, expected benefits, and potential risks [...] had referred him to cardiac rehab at [facility] last month per HF team. He was waiting until this intervention before starting the program. Reviewed managing angina /use of sl nitroglycerin. Given parameters for home exercise. 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 We discussed short walks several times per day. Will send [facility] his discharge summary from this admission. The patient should be contacted by the Program within 1- 2 weeks from discharge. Brief Op Note - Vitaliy Nobles MD - 01/30/2022 10:19 AM EDT Images from the original note were not included. [facility] [place] [address] [place] [address] CORONARY ANGIOGRAM AND PERCUTANEOUS CORONARY INTERVENTION REPORT Patient: Don Fatima : 1945 MR number: [id number] Date of Service: 01/30/2022 Assistant Family Teacher: Vitaliy Nobles MD Fellow: KEYON Elizabeth [...] a long 2.0 x 26 mm HARDEEP Pilger TUCKER stent and positioned it at the [...] using a 2.0 x 26 mm HARDEEP Pilger TUCKER stent. This completes the revascularization ofall [...] Visit Cardiology Zulma Dolan MD [facility] [place] [id number] [address] [place] [facility] [place] [address] 06/10/2022 Office Visit Dermatology Laura Scherer MD [facility] ER [address] [place], [place] [address] (Wo rk) Scheduled Orders Name [...] Neutr Abs (ANC) 3.96 1.70 - [facility] 6.10 [facility] x10(3)/[facility] LABORATORY Lymphocytes % 16.3 % [facility] LABORATORY Lymphocytes Abs 0.9 0.9 - 3.2 [facility] x10(3)/[facility] LABORATORY Monocytes % 10.0 % [facility] LABORATORY Monocyte Abs 0.6 0.3 - 0.9 [facility] x10(3)/[facility] LABORATORY Eosinophils % 0.5 % [facility] LABORATORY Eosinophils Abs 0.0 0.0 - 0.4 [facility] x10(3)/[facility] LABORATORY Basophils % 0.5 % [facility] LABORATORY Basophils Abs 0.0 0.0 - 0.1 [facility] x10(3)/[facility] LABORATORY Immature Gran % 0.90 % [...] City/State/[place] [address] (ABNORMAL) Hemogram (01/30/2022 2:12 PM EDT) Analysis Performed At Patho logist Time Signature WBC 5.5 4.0 - 9.5 [facility] x10(3)/[facility] LABORATORY RBC 4.30 (L) 4.58 - [place] [facility] 5.54 [facility] x10(6)/[facility] LABORATORY Hemoglobin 12.7 (L) 13.7 - [place] [facility] 16.5 g/dL [facility] LABORATORY Hematocrit 39.4 (L) 40.5 - [place] [facility] 48.5 % [facility] LABORATORY MCV 91.6 82.9 - [facility] 93.1 [facility] LABORATORY MCH 29.5 27.5 - [place] [facility] 32.1 pg [facility] LABORATORY MCHC 32.2 32.0 - [place] [facility] 35.7 g/dL [facility] LABORATORY Platelets 172 145 - 357 [facility] x10(3)/[facility] LABORATORY RDWSD 54.5 (H) 36.0 - [facility]0 [facility] LABORATORY RDWCV 16.4 (H) 11.4 - [facility] 13.8 % [facility] LABORATORY MPV 9.2 7.6 - 12.9 [facility] LABORATORY nRBC % Auto 0.0 % [facility] LABORATORY nRBC Abs Auto 0.000 0.000 - [facility] 0.000 [facility] x10(3)/[facility] LABORATORY Specimen Anatomical Collection Method Collection Time Receive d Time (Source) Location / / Volume Laterality Blood 01/30/2022 2:12 PM 2 2:37 EDT PM EDT Resulting Agency Comment Spec In Lab Eddi Elizabeth Jr., MD HEMATOLOGY ORDERABLES Performing Organization Address City/State/ZIP [place] [address] (ABNORMAL) Basic Metabolic Panel (non-fasting) (01/30/2022 2:12 PM EDT) P athologist Signature Glucose Lvl 163 65 - 199 [facility] mg/dL [facility] LABORATORY Comment: Diabetes: >=200 mg/dL plus symp toms BUN 30 (H) 10 - 20 mg/dL [facility] LABORATORY Creatinine 1.47 0.80 - 1.50 mg/dL [facility] LABORATORY Sodium 140 135 - [...] City/State/Z[place] [address] POCT Glucose (01/30/2022 1:41 PM EDT) athologist Signature POC Glucose 148 65 - 199 [facility] mg/dL [facility] LABORATORY Comment: Supplemental ranges: <140 mg/dL before meals <180 mg/dL all other times of the day Specimen Anatomical Collection Method Collection Time Receive d Time (Source) Location / / Volume Laterality Blood 01/30/2022 1:41 PM 1:41 EDT PM EDT Vitaliy Sandra Nobles MD POINT OF CARE TEST ORDERABLE S Performing Organization Address City/[facility]/ZIP Code Phon e Number [address] POCT Glucose (01/30/2022 10:48 AM EDT) P athologist Signature POC Glucose 193 65 - 199 [facility] mg/dL [facility] LABORATORY Comment: Supplemental ranges: <140 mg/dL before meals <180 mg/dL all other times of the day Specimen Anatomical Collection Method Collection Time Receive d Time (Source) Location / / Volume Laterality Blood 01/30/2022 10:48 01/30/2022 AM EDT 10:48 AM EDT Vitaliy Sandra Nobles MD POINT OF CARE TEST ORDERABLE S Performing Organization Address [facility] [place] [address] EKG 12 Lead (01/30/2022 10:33 AM EDT) Component Value Ref Range Test Analysis Performed Pathologis t Method Time At Signature Ventricular rate 64 BPM MUSE SYSTEM Atrial Rate 64 BPM MUSE SYSTEM P-R Interval 162 ms MUSE SYSTEM QRS Duration 94 ms MUSE SYSTEM Q-T Interval 422 ms MUSE SYSTEM QTC Calculated 435 ms MUSE SYSTEM (Bezet) Calculated P [place] 41 degrees MUSE SYSTEM Calculated R [place] -27 degrees MUSE SYSTEM Calculated T [place] 104 degrees MUSE SYSTEM INTERPRETATION Normal sinus rhythm MUSE SYSTEM Anterolateral infarct (cited on or before 09-DEC-2021) Abnormal ECG When compared with ECG of 10-DEC-2021 11:17, No significant change was found Confirmed by Gary Perez ([id number]) on 01/30/2022 5:57:5 2 PM Specimen Anatomical Collection Method Collection Time Receive d Time (Source) Location / / Volume Laterality 01/30/2022 10:33 01/30/2022 5:57 AM EDT PM EDT Vitaliy Sandra Nobles MD ECG ORDERABLES Performing Organization Address City/[facility]/ZIP Code Phon e Number MUSE SYSTEM CARDIAC CATHETERIZATION (01/30/2022 10:16 AM EDT) Anatomical Region Laterality Modality Other Specimen (Source) Anatomical Location Collection Method / Collectio n Time Received Time / Laterality Volume Narrative 01/30/2022 2:09 PM EDT ?[facility] ? Cardiac Cathete rization/Intervention Report ? Patient Name: Don Fatima. ? Procedure Date: 01/30/2022 ? A #: [id number] ? Primary Physician: Nobles, Vitaliy P ? Case #: [id number] ? File Name: [id number] ? Catheterization Order Number: [id number] ? [facility] ? Final Report [place], [place] ? Patient Name: ? Don Mccollum. Stewa rt ? ID#: ?[id number] ? : ?1945 ? Procedure Date: ? [...] ?designated as ASA Class III. Th e [facility] clinical frailty scale is 5: Mildly [...] Urgent. The indication for ?the labor relations teacher visit is stable kn own CAD. Chest pain symptom assessment ?was: Typical Angina. ? Technique: ?A 6 SLFr sheath was inserted in the right radial artery utilizing the ?Seldinger technique. The right coronary artery was injected utilizing a ?IR 2.0 catheter. Coronary stent insertion was performed and the equipment ?utilized will be described in [facility] intervention summary section. 9,000 ?units of [...] an d a 3.[address] [place] [facility] [address] ??20 Mhz ?using Manual pullback. ??Imagin [...] A premounted 2.00 x 26 mm Hardeep Pilger (TUCKER) ? was deployed wi a maximum [...] Wedelivered along 2.0 x 26 mm HARDEEP Pilger ? TUCKER stent and p ositioned it [...] prior to arrival in the labor relations teacher. ?Recommended anti-platelet/anti- thrombotic regimen: ?Continue aspirin 81 [...] ?modification of this regimen. C onsult [facility] Interventional Cardiology for ?questions. ?The [...] using a 2.0 x 26 mm HARDEEP Pilger TUCKER stent. ?This completes the revasculariz ation [...] Procedure Note Vitaliy Nobles MD - 03/06/[address] [facility] Cardiac Catheterization/Intervention Re port Patient Name: Don Fatima Procedure Date: 01/30/2022 A #: [id number] Primary Physician: Vitaliy Nobles Case #: [id number] File Name: [id number] Catheterization Order Number: [id number] [facility] Final Report [place], [place] Patient Name: Don Fatima ID#: [...] Urgent. The indication for the labor relations teacher visit is stable known CAD. Chest pain [...] catheter and a 3.[address] 20 Mhz using Manual pullback. Imaging [...] atmospheres. A premounted 2.00 x 26 mm [place] Pilger (TUCKER) was deployed with a maximum inflation [...] along 2. 0 x 26 mm HARDEEP Pilger TUCKER stent and positioned it at the [...] administered prior t o arrival in the labor relations teacher. Recommended anti-platelet/anti-thrombot ic regimen: Continue aspirin 81 [...] using a 2.0 x 26 mm HARDEEP Pilger TUCKER stent. This completes the revascularization of [...] [facility] mg/dL [facility] LABORATORY Comment: Supplemental ranges: <140 mg/dL before meals <180 mg/dL all other times of the day Specimen Anatomical Collection Method Collection Time Receive d Time (Source) Location / / Volume Laterality Blood 01/30/2022 9:04 AM 2 9:04 EDT AM EDT Vitaliy Nobles MD POINT OF CARE TEST ORDERABLE S Performing Organization Address City/State/Z[place] [address] (ABNORMAL) POCT Glucose (01/30/2022 8:10 AM EDT) athologist Signature POC Glucose 224 (H) 65 - 199 [facility] mg/dL [facility] LABORATORY Comment: Supplemental ranges: <140 mg/dL before meals <180 mg/dL all other times of the day Specimen Anatomical Collection Method Collection Time Receive d Time (Source) Location / / Volume Laterality Blood 01/30/2022 8:10 AM 2 8:10 EDT AM EDT Vitaliy Nobles MD POINT OF CARE TEST ORDERABLE S Performing Organization Address City/State/ZIP [place] [address] documented in this encounter Visit Diagnoses Diagnosis ASCVD (arteriosclerotic cardiovascular d isease) Unspecified cardiovascular disease 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 ASHD (arteriosclerotic heart disease) Coronary atherosclerosis of unspecified type of vessel, [place] or graft ASCVD (arteriosclerotic cardiovascular d isease) Unspecified cardiovascular disease documented in this encounter Admitting Diagnoses Diagnosis CAD (coronary artery disease) Coronary atherosclerosis of unspecified type of vessel, [place] or graft documented in this encounter Administered [...] Procedure), Routine niCARdipine (Cardene) (100 mcg/mL) dilution (MANUFACTURING ENGINEER CHIEF) (CANCELED ) 0927 (Given - Provider: [...] (Intra-Procedure) documented in this encounter Care Teams Assistant Offset Press Operator Relationship Specialty Start Date End Date Lovely Vicente MD PCP - General 04/16/[address] [place] [address] documented as of this encounter
--- OUTSIDE RECORDS SUMMARY | 2022-04-20 08:10 | XMS_ITS | Encounter Summary ---
:1945 Author Organization [facility] [place] [address] Care Team Providers Name Role Phone Lovely Vicente MD Primary Care Provider Reason for Referral Consultation (Routine) - Closed Specialty Diagnoses / Referred By Contact Referred To Contact Procedures Cardiac Rehabilitation Diagnoses Acute HFrEF (heart failure with reduced ejection fraction) Janneth Padilla, Cardiac Rehab, [address] [place] CARDIOLOGY DEPT. [address] [place] [address] Referral ID Status Reason Start Date Expiration Date Visits V isits Requested Authorized [id number] Closed Consult, 12/12/2021 12/12/2022 36 36 Test & Treat Reason for Visit Auth/Cert Specialty Diagnoses / Procedures Referred By Contact Refer red To Contact Diagnoses NSTEMI Procedures emerg ipi Referral ID Status Reason Start Date Expiration Date Visits Requ ested Visits Authorized [id number] 1 1 Encounter Details Date Type Department Care Team Description 12/08/2021 - Hospital Encounter Intermediate Cardiac Iker Cuevas MD [facility] [place] [address] Non-ST elevation myocardial infarction ( NSTEMI); 12/12/2021 Care Unit Ifeanyi Rene MD [facility] [place] [address] ST elevation myocardial infarction (STEM I), unspecified artery; [facility] Acute HFr EF (heart failure with reduced ejection fraction) [place] [address] Social History Tobacco Use Types Packs/Day Years [...] Don Fatima Patient Age: 76 y.o. Language: Slovenian Race: White Ethnicity: Not nor Admit date: [...] Peter PA-C Kelly LaFlamme PA-C Cardiovascular Medicine [phone] Discharge Diagnoses (Hospital Problems) and Secondary Diagnoses [...] 3.75 guiding catheter and a 3.5 Fr [place] 20 Mhz using Manual pullback. Imaging was successful. Image quality was good. The ostial LCX showed moderate diffuse atherosclerotic plaque with scattered three quadrant calcification. Measurements were performed after pre-dilation. Post Intervention: The stent was well expanded and apposed. Intravascular Ultrasound was performed in the distal LM using a 7 Fr EBU 3.75 guiding catheter and a 3.5 Fr [place] 20 Mhz using Manual pullback. Imaging [...] vascular congestion and cardiomegaly. ?? TTE from [facility] 12/08/21 ? Prior Cardiac Studies: [...] prior thyroidectomy in 2012 who presented to [facility] with 1 week progressing breathlessness [...] 03/2021 with Liz Poole PA-C. ?? At [facility], respiratory distress with [...] mg PO daily in place of lasix. Wana is new for him and he will have a BMP checked on 12/[address] Cuevas spoke with the patient's and told her that him drinking too much water and diet drinks did not cause his ND. This is what his thought was the [...] to be ~$24/mo; affordable per patient. Post [facility] he was started on Eliquis. He [...] appointments: During 8am-5pm Wednesday through Wednesday call [phone] to speak with a nurse in the cardiology clinic All other times call [phone] and ask to speak to the lens finisher supervisor dimension warehouse. Return to work: One week Driving: No driving for 48 hours after catheterization. Follow up Appointments: PCP Lovely Vicente MD [phone] to see patient at the end of December for annual check up. Patient to see Dr. Lorenzana at 1120 am at December 19 for a post hospital check up. Silhouette Artist Dr. De Oliveira to see you in [facility]. Left a message for office to set a date and time. Please call [phone] Nobles to see the patient for a same day cath in 2-3 weeks from now. Office to call with a date and time. For questions please call [phone] Home oxygen therapy: N/A Arrangements for VNA/home care: none Future Appointments and Orders Future Orders Complete By Expires Basic Metabolic Panel (non-fasting) [LAB15 Custom] 12/19/2021 (Approximate) 12/12/2022 Process Instructions: INCLUDES: Calcium, BUN, Creat, GFR, Glucose, Lytes Scheduling Instructions: Comments: Questions: Referral to Cardiac Rehab [EML364 Custom] As directed Process Instructions: If no [...] appointments: During 8am-5pm Wednesday through Wednesday call [phone] to speak with a nurse in the cardiology clinic All other times call [phone] and ask to speak to the lens finisher supervisor dimension warehouse. Return to work: One week Driving: No driving for 48 hours after catheterization. Follow up Appointments: PCP Lovely Vicente MD [phone] to see patient at the end of December for annual check up. Patient to see Dr. Lorenzana at 1120 am at December 19 for a post hospital check up. Silhouette Artist Dr. De Oliveira to see you in [facility]. Left a message for office to set a date and time. Please call [phone] Nobles to see the patient for a same day cath in 2-3 weeks from now. Office to call with a date and time. For questions please call [phone] Home oxygen therapy: N/A Arrangements for VNA/home [...] Progress Note Patient Name: Don Fatima Service: DIRECTOR OF DIAGNOSTIC IMAGING / PA Responsible Attending: Ifeanyi Truong MD [...] was given Lasix 80mg IV x1 in mobile lab technician. Tolerated procedure well. Home today [...] TROPONINT 1.13* 0.92* 0.89* Pertinent Radiographic/Diagnostic Results: R/[facility] 12/10/21 Hemodynamics: Right Heart Pressures Resting: [...] pulmonary vascular congestion and cardiomegaly. TTE from [facility] 12/08/21 Prior Cardiac Studies: TTE [...] infusion #GI prophylaxis: PPI Discussed with MD Janneht Neville PA 12/12/2021 Pager [phone] Associated attestation - Ifeanyi Truong MD - [...] [facility] Pager [phone] 20 minutes of this 35 minute visit [...] Progress Note Patient Name: Don Fatima Service: DIRECTOR OF DIAGNOSTIC IMAGING / PA Responsible Attending: Iker Cuevas MD [...] + trop. Known CAD with hx of ND and CABG. DM. MARIA VICTORIA.ICM. ??? ASHD [...] was given Lasix 80mg IV x1 in mobile lab technician. Tolerated procedure well. Review of [...] TROPONINT 1.13* 0.92* 0.89* Pertinent Radiographic/Diagnostic Results: R/[facility] 12/10/21 Hemodynamics: Right Heart Pressures Resting: [...] pulmonary vascular congestion and cardiomegaly. TTE from [facility] 12/08/21 Prior Cardiac Studies: TTE [...] and answered his questions. Iker Cuevas MD [facility] Total time spent on review of records prior to visit, face to face time with patient during visit, documentation, and coordination of care with other clinicians: 25 minutes. . Iker Cuevas MD - 12/10/2021 12:30 PM EDT Images from the original note were not included. Inpatient Cardiology Progress Note Patient Name: Don Fatima Service: DIRECTOR OF DIAGNOSTIC IMAGING / PA Responsible Attending: Iker Cuevas MD Reason for continued hospitalization: NSTEMI- s/p R/LHC- PCW 27, occluded SVGs s/p PCI to ostial LCX ADHF and hypoxia- IV diuresis Active Problems: Active Hospital Problems Diagnosis ??? Admitted with 2 days of sob, hypoxemia, and + trop. Known CAD with hx of ND and CABG. DM. MARIA VICTORIA.ICM. ??? ASHD [...] was given Lasix 80mg IV x1 in mobile lab technician. Tolerated procedure well. Review of [...] ??? heparin (porcine) infusion 1,600 Units/hr (12/09/21 3476) PRN Meds:ipratropium-albuteroL, senna-docusate, bisacodyL, sodium chloride 0.9 [...] TROPONINT 1.13* 0.92* 0.89* Pertinent Radiographic/Diagnostic Results: R/[facility] 12/10/21 Hemodynamics: Right Heart Pressures Resting: [...] pulmonary vascular congestion and cardiomegaly. TTE from [facility] 12/08/21 Prior Cardiac Studies: TTE [...] Discussed with MD Migdalia Peter PA-C Pager #[phone] 12/10/2021 Cardiology Attending Note I have seen [...] updated and given pictures. Iker Cuevas MD [facility] Total time spent on review of records prior to visit, face to face time with patient during visit, documentation, and coordination of care with other clinicians: 35 minutes. Iker Cuevas MD - 12/09/2021 7:28 AM EDT Images from the original note were not included. Inpatient Cardiology Progress Note Patient Name: Don Fatima Service: DIRECTOR OF DIAGNOSTIC IMAGING / PA Responsible Attending: Iker Cuevas MD Reason for continued hospitalization: NSTEMI- awaiting R/LHC ADHF and hypoxia- IV diuresis, R/LHC Active Problems: Active Hospital Problems Diagnosis ??? Admitted with 2 days of sob, hypoxemia, and + trop. Known CAD with hx of ND and CABG. DM. MARIA VICTORIA.ICM. ??? ASHD [...] ??? heparin (porcine) infusion 1,600 Units/hr (12/09/21 6858) PRN Meds:ipratropium-albuteroL, sodium chloride 0.9 % (flush), [...] pulmonary vascular congestion and cardiomegaly. TTE from [facility] 12/08/21 Prior Cardiac Studies: TTE [...] Discussed with MD Migdalia Peter PA-C Pager #[phone] 12/09/2021 Cardiology Attending Note I have seen and examined the patient. I agree with the findings above. Developed CHF early this am despite getting more iv lasix last evening. Feeling better now. INR > 2. Lungs still wet at base. Echo at [facility] showed EF 35% with mild mod MR slightly lower than last value here. -vit K 2.5 orally to facilitate correction of INR- this will take 12-24 hours to take effect -furosemide 80 mg iv now -postpone right and left heart cath until tomorrow given INR and ADHF -increase statin to achieve LDL < 70 -CPAP tonight Iker Cuevas MD [facility] Total time spent on review [...] + trop. Known CAD with hx of ND and CABG. DM. MARIA VICTORIA.ICM. ??? ASHD [...] prior thyroidectomy in 2012 who presented to [facility] with 1 week progressing breathlessness [...] visit 03/2021 with Liz Poole PA-C. At [facility], respiratory distress with [...] by Manny Mcknight MD at [facility] OR ??? PRO AMPUTATION FOOT, TRANSMETATARSAL Right 08/09/2017 AMPUTATION, TRANSMETATARSAL (WRVU 12.71) performed by Yonathan Smith MD at [facility] OR ??? PRO CABG, ARTERIAL, SINGLE N/A 07/07/2017 @CABG, USING ARTERIAL GRAFT;SINGLE ARTERIAL GRAFT (WRVU 33.75) performed by Yuan Retana MD at [facility] OR ??? PRO CABG, ARTERY-VEIN, TWO N/A [...] by Lamar Smith MD at [facility] OR ??? PRO ENDOSCOPY W/VIDEO-ASST VEIN HARVEST, CABG Right 07/07/2017 ENDOSCOPIC HARVEST VEIN(S) FOR CABG (WRVU 0.31) performed by Yuan Retana MD at [facility] OR ??? PRO THYROIDECTOMY 03/28/2013 THYROIDECTOMY, TOTAL [...] (H) 65 - 199 mg/dL Labs at [facility] 12/08/2021-troponin I 8004 (UN L [...] Monitor for ADRs. Trend troponins. Admission EKG. [facility] 12/09; consented. TTE. Telemetry monitoring, daily [...] code #Diet-carb control; n.p.o. after midnight for [facility] #DVT prophy- heparin infusion #GI prophy- PPI Discussed with MD Morgan Peter PA-C APP2 pager [phone] 12/08/2021 Cardiology Attending Note I have seen [...] 1 due to graft or [place] coronary stenosis vs acute injury from CHF. 3. PAF: currrently in NSR. Have replaced warfarin with heparin 4. PAD: stable 5. DM: stable 6. CKD: will monitor and minimize contrast. Pt very appreciative of Dr. Yuan Retana's care in 2018. Will let him know patient is here. Iker Cuevas MD [facility] documented in this encounter Miscellaneous [...] Type: *No Product type* / Secondary Insurance: [email or web address] [place] Prescription Coverage: Yes This plan was formulated with input from patient and team. All are in agreement with plan. Consult Note - Octavia Vaughn RN - 12/11/2021 8:01 AM EDT Don Fatima has been admitted with NSTEMI and has received TUKCER to ostial LCX. Plan for a staged [...] cath without complications. Migdalia Parker PA-C Pager #[phone] 12/10/2021 Initial Assessments - Nick Georges RN [...] COVID test: Lab Results Component Value Date [id number] Not Detected 12/08/2021 Past medical History: Past [...] spouse would be surrogate decision maker per [place] surrogate decision making law. (Only good for 180 days) Any patient receiving care at [facility] must abide by [place] law. The hierarchy for surrogate decision making [...] The agent with financial power of deputy county attorney or a conservator appointed in accordance [...] - standard, cane - straight Home Address: [address] [place] [address] [place] [address] Social & Family Supports: All names listed below confirmed with patient as current and correct Extended Emergency Contact Information Primary Emergency Contact: Kisha Fatima Address: [address] [place] [address] [place] [address] [facility] [place] Mobile Relation: Spouse Secondary Emergency Contact: Elba Swenson Address: [address] Mobile Relation: Child Current Care Provided [...] Type: *No Product type* / Secondary Insurance: [employer] CROSS BLUE [facility] Prescription Coverage: Yes Preferred Pharmacy: [facility] [address] [address] [address] [address] - [address] [address] [place] Status: Patient is a : unable to assess Primary Care Provider: Lovely Vicente MD [phone] Patient/Caregiver Goals of Treatment: Get out of here Potential Needs for Transition of Care: none Agency Referrals: none patient has used [employer] in the past Transportation: no concerns Transportation Anticipated: family or friend will provide Concerns to be Addressed: patient refuses services, discharge planning Assessment: Patient is admitted to [facility] Service pager [phone] for 76 y.o.??male??with h/o??CAD s/p 3vCABG (THOMPSON-LAD, [...] status on current unit. Nick Georges RN rubber roller grinder, Office of Care Management Pager: [phone] Brief Op Note - Vitaliy Nobles MD - 12/10/2021 8:31 AM EDT Images from the original note were not included. [facility] [place] [address] CORONARY ANGIOGRAM AND PERCUTANEOUS CORONARY INTERVENTION REPORT Patient: Don Fatima : 1945 MR number: [id number] Date of Service: 12/10/2021 Rand Cementer: Vitaliy Nobles MD Fellow: [place]o [place] MD [...] andis managed by his PCP. Lives in [place], [place] with his . States that he [...] Hold] heparin (porcine) infusion 1,600 Units/hr (12/09/21 0758) PRN: [SEP Hold] ipratropium-albuteroL, [SEP Hold] senna-docusate, [...] provide care for your patient Desirae Shaper COMMERCIAL SHEET [employer]AL [employer]EMAN Endocrinology Pager [phone] 70 minutes of this [...] + trop. Known CAD with hx of ND and CABG. DM. MARIA VICTORIA.ICM. ??? ASHD [...] to remain on Med/Surg floor, please page [phone] for any further questions or concerns. LANDON [...] for further details. STEPHANIE Rebolledo 12/08/2021 Pager [phone] documented in this encounter Plan of Treatment Upcoming Encounters Date Type Specialty Care Team Description 05/28/2022 Appointment Cardiology Zulma Dolan MD [facility] [place], [place] [address] (Wo rk) 05/28/2022 Laboratory Appointment Lab 05/28/2022 Office Visit Cardiology Zulma Dolan MD [facility] [place] [address] Liz Poole PA [facility] [place] [address] 06/10/2022 Office Visit Dermatology Laura Scherer MD [facility] [address] [place], [place] [address] (Wo rk) Scheduled Referrals Name [...] [facility] mg/dL [facility] Comment: Supplemental ranges: <140 mg/dL before meals <180 mg/dL all other times of the day Specimen Anatomical Collection Method Collection Time Receive d Time (Source) Location / / Volume Laterality Blood 12/12/2021 7:42 AM 7:42 EDT AM EDT Ifeanyi Truong MD POINT OF CARE TEST ORDERABLE S Performing Organization Address City/State/[place] [address] (ABNORMAL) Differential, Automated (12/12/2021 4:51 AM EDT) athologist Signature Neutrophils % 75.4 % [facility] Neutr Abs (ANC) 5.95 1.70 - [facility] 6.10 [facility] x10(3)/[facility] LABORATORY Lymphocytes % 12.2 % [facility] Lymphocytes Abs 1.0 0.9 - 3.2 [facility] x10(3)/[facility] LABORATORY Monocytes % 9.5 % [facility] Monocyte Abs 0.8 0.3 - 0.9 [facility] x10(3)/[facility] LABORATORY Eosinophils % 1.8 % [facility] Eosinophils Abs 0.1 0.0 - 0.4 [facility] x10(3)/[facility] LABORATORY Basophils % 0.5 % [facility] Basophils Abs 0.0 0.0 - 0.1 [facility] x10(3)/[facility] LABORATORY Immature Gran % [...] Organization Address City/State/[place] [address] (ABNORMAL) Hemogram (12/12/2021 4:51 AM EDT) Analysis Performed At Patho logist Time Signature WBC 7.9 4.0 - 9.5 [facility] x10(3)/[facility] LABORATORY RBC 4.19 (L) 4.58 - [facility] 5.54 [facility] x10(6)/[facility] LABORATORY Hemoglobin 12.1 (L) 13.7 - [facility] 16.5 g/dL [facility] Hematocrit 36.7 (L) 40.5 - [facility] 48.5 % [facility] MCV 87.6 82.9 - [facility] 93.1 fL [facility] MCH 28.9 27.5 - [facility] 32.1 pg [facility] MCHC 33.0 32.0 - [facility] 35.7 g/dL [facility] Platelets 231 145 - 357 [facility] x10(3)/[facility] LABORATORY RDWSD 47.2 (H) 36.0 - [facility] 45.0 [facility] LABORATORY RDWCV 14.6 (H) 11.4 - [facility] 13.8 % [facility] MPV 9.5 7.6 - 12.9 [facility] LABORATORY nRBC % Auto 0.0 % [facility] nRBC Abs Auto 0.000 0.000 - [facility] 0.000 [facility] x10(3)/[facility] LABORATORY Specimen Anatomical Collection Method Collection Time Receive d Time (Source) Location / / Volume Laterality Blood 12/12/2021 4:51 AM 2 5:06 EDT AM EDT Resulting Agency Comment Spec In Lab Bijan Sun MD HEMATOLOGY ORDERABLES Performing Organization Address City/[facility]/[place] [address] (ABNORMAL) Prothrombin Time (12/12/2021 4:51 AM EDT) P athologist Signature PT 14.9 (H) 9.4 - 12.5 [facility] LABORATORY INR 1.3 [facility] Comment: An INR [...] Cuevas MD HEMATOLOGY ORDERABLES Performing Organization Address City/[facility]/[place] [address] (ABNORMAL) BMP w/fasting Glucose (12/12/2021 4:51 AM EDT) athologist Signature Glucose 152 (H) 65 - 99 [facility] Fasting mg/dL [facility] Comment: ?Fasting* Glucose Interpretive C [...] of Diabetes Mellitus, Position Statement from the [place] Diabetes [employer]. ??Diabete s Care, Volume 33, Supplement 1, Jul 2009 BUN 52 (H) 10 - 20 mg/dL [facility] Creatinine 1.72 (H) 0.80 - 1.50 mg/dL [facility] estions. Chloride 105 98 - 107 mmol/L [facility] CO2 21 (L) 22 - 31 mmol/L [facility] Anion Gap 17 (H) 5 - 15 mmol/L [facility] Calcium 8.9 8.5 - 10.5 mg/dL [facility] Estimated GFR 38 (L) >=60 mL/min/1.73 m?? [facility] [...] Organization Address City/State/[place] [address] Magnesium (12/12/2021 4:51 AM EDT) P athologist Signature Magnesium 1.02 0.69 - 1.07 [facility] mmol/L [facility] Specimen Anatomical Collection Method Collection Time Receive d Time (Source) Location / / Volume Laterality Blood 12/12/2021 4:51 AM 2 5:06 EDT AM EDT Resulting Agency Comment Spec In Lab Iker Cuevas MD CHEMISTRY ORDERABLES Performing Organization Address City/[facility]/[place] [address] POCT Glucose (12/12/2021 3:43 AM EDT) P athologist Signature POC Glucose 138 65 - 199 [facility] mg/dL [facility] [...] Organization Address City/State/[place] [address] POCT Glucose (12/11/2021 11:44 PM EDT) athologist Signature POC Glucose 124 65 - 199 [facility] mg/dL [facility] Comment: [...] [facility]/[place] [address] (ABNORMAL) POCT Glucose (12/11/2021 8:12 PM EDT) athologist Signature POC Glucose 200 (H) 65 - 199 [facility] mg/dL [facility] Comment: [...] [facility]/[place] [address] (ABNORMAL) POCT Glucose (12/11/2021 6:50 PM EDT) athologist Signature POC Glucose 245 (H) 65 - 199 [facility] mg/dL [facility] Comment: Supplemental ranges: <140 mg/dL before meals <180 mg/dL all other times of the day Specimen Anatomical Collection Method Collection Time Receive d Time (Source) Location / / Volume Laterality Blood 12/11/2021 6:50 PM 2 6:50 EDT PM EDT Iker Cuevas MD POINT OF CARE TEST ORDERABLE S Performing Organization Address City/State/[place] [address] (ABNORMAL) POCT Glucose (12/11/2021 4:00 PM EDT) P athologist Signature POC Glucose 383 (H) 65 - 199 [facility] mg/dL [facility] Comment: [...] [facility]/[place] [address] (ABNORMAL) POCT Glucose (12/11/2021 12:01 PM EDT) athologist Signature POC Glucose 342 (H) 65 - 199 [facility] mg/dL [facility] Comment: [...] [facility]/[place] [address] COVID-19 PCR (12/11/2021 10:13 AM EDT) [facility] gist Method Time Signature SARS-CoV-2 Not Detected Not Detected BARBARA RNA [facility]ORATORY [...] diagnosis of COVID-19 is performed using the [employer] Dianna FRIEND S-CoV-2 Assay as authorized by the FDA Emergency Use Authorization (EUA). This EUA assay is intended for In-vitro Diagnostic (IVD) use with respiratory sp ecimens such as nasopharyngeal swabs collected from individuals during the ac [place] phase of infection. This assay is performed based on the instructions for use provided by [employer] and additional guidance provided by CDC and FDA. Testing is performed in the [facility] Laboratory within the Department of Pathology and Laboratory Medicine at [facility], certified under the Clinical Laboratory Improvement Amendments [...] fact sheets at the following FDA website: https://www.fda.gov/medical-devices/evtsxjzalzp-fwmevkw-6710-ussaq-16-prfstswla- wnz-uprvejcvgyfzha-usdyngj-devices/bqowx-zmamclaccxn-rpio SARS-Cov-2 RNA Source DIRECTOR OF DIAGNOSTIC IMAGING Swab [facility] Specimen (Source) Anatomical Collection Method Collection Time Re ceived Time Location / / Volume Laterality Nasopharyngeal Swab 12/11/2021 10:13 05/03/2022 AM EDT 11:16 AM EDT Comment: Symptoms->Surveillance Resulting Agency Comment Spec In Lab Iker Cuevas MD MICROBIOLOGY - GENERAL ORDER ROBSON Performing Organization Address City/[facility] [place] [address] POCT Glucose (12/11/2021 7:34 AM EDT) athologist Signature POC Glucose 198 65 - 199 [facility] mg/dL [facility] LABORATORY Comment: [...] [facility]/[place] [address] (ABNORMAL) POCT Glucose (12/11/2021 5:07 AM EDT) P athologist Signature POC Glucose 208 (H) 65 - 199 [facility] LABORATORY Comment: [...] [facility]/[place] [address] (ABNORMAL) Differential, Automated (12/11/2021 4:28 AM EDT) [facility] Method Time Signature Neutrophils % 79.6 % [facility] LABORATORY Neutr Abs (ANC) 7.01 (H) 1.70 - [facility] 6.10 [facility] x10(3)/[facility] L LABORATORY Lymphocytes % 9.1 % [facility] LAB[facility]ORY Lymphocytes Abs 0.8 (L) 0.9 - 3.2 [facility] x10(3)/[facility] LABORATORY Monocytes % 9.2 % [facility] Monocyte Abs 0.8 0.3 - 0.9 [facility] x10(3)/[facility] LABORATORY Eosinophils % 1.3 % [facility] Eosinophils Abs 0.1 0.0 - 0.4 [facility] x10(3)/[facility] LABORATORY Basophils % 0.5 % [facility] Basophils Abs 0.0 0.0 - 0.1 [facility] x10(3)/[facility] LABORATORY Immature Gran % 0.30 % [...] - 0.04 x10(3)/[facility] MAR Y [facility] LABORATORY Specimen Anatomical Collection Method Collection Time Receive d Time (Source) Location / / Volume Laterality Blood 12/11/2021 4:28 AM 4:37 EDT AM EDT Resulting Agency Comment Spec In Lab Bijan Sun MD HEMATOLOGY ORDERABLES Performing Organization Address City/[facility]/[place] [address] (ABNORMAL) Hemogram (12/11/2021 4:28 AM EDT) Analysis Performed At Patho logist Time Signature WBC 8.8 4.0 - 9.5 [facility] x10(3)/[facility] LABORATORY RBC 4.15 (L) 4.58 - [facility] 5.54 [facility] x10(6)/[facility] LABORATORY Hemoglobin 11.9 (L) 13.7 - [facility] 16.5 g/dL [facility] LABORATORY Hematocrit 36.9 (L) 40.5 - [facility] 48.5 % [facility] LABORATORY MCV 88.9 82.9 - [facility] 93.1 [facility] LABORATORY MCH 28.7 27.5 - [facility] 32.1 pg [facility] LABORATORY MCHC 32.2 32.0 - [facility] 35.7 g/dL [facility] LABORATORY Platelets 211 145 - 357 [facility] x10(3)/[facility] LABORATORY RDWSD 48.3 (H) 36.0 - [facility] 45.0 [facility] LABORATORY RDWCV 14.8 (H) 11.4 - [facility] 13.8 % [facility] LABORATORY MPV 9.6 7.6 - 12.9 [facility] LABORATORY nRBC % Auto 0.0 % [facility] LABORATORY nRBC Abs Auto 0.000 0.000 - [facility] 0.000 [facility] x10(3)/[facility] LABORATORY Specimen Anatomical Collection Method Collection Time Receive d Time (Source) Location / / Volume Laterality Blood 12/11/2021 4:28 AM 2 4:37 EDT AM EDT Resulting Agency Comment Spec In Lab Bijan Sun MD HEMATOLOGY ORDERABLES Performing Organization Address City/State/ZIP [place] [address] (ABNORMAL) Prothrombin Time (12/11/2021 4:28 AM EDT) P athologist Signature PT 17.7 (H) 9.4 - 12.5 [facility] LABORATORY INR 1.6 [facility] LABORATORY Comment: An INR [...] Organization Address City/State/[place] [address] (ABNORMAL) BMP w/fasting Glucose (12/11/2021 4:28 AM EDT) athologist Signature Glucose 207 (H) 65 - 99 [facility] Fasting mg/dL [facility] LABORATORY Comment: ?Fasting* Glucose Interpretive C [...] of Diabetes Mellitus, Position Statement from the [place] [employer]. ??Diabete s Care, Volume 33, Supplement 1, Jul 2009 BUN 49 (H) 10 - 20 mg/dL [facility] LABORATORY Creatinine 1.43 0.80 - 1.50 mg/dL [facility] [...] Estimated GFR 48 (L) >=60 mL/min/1.73 m?? [facility] [...] Cuevas MD CHEMISTRY ORDERABLES Performing Organization Address City/[facility] [place] [address] Magnesium (12/11/2021 4:28 AM EDT) P athologist Signature Magnesium 1.04 0.69 - 1.07 [facility]/L [facility] LABORATORY Specimen Anatomical Collection Method Collection Time Receive d Time (Source) Location / / Volume Laterality Blood 12/11/2021 4:28 AM 2 4:37 EDT AM EDT Resulting Agency Comment Spec In Lab Iker Cuevas MD CHEMISTRY ORDERABLES Performing Organization Address City/State/ZIP Code Phon e Number [place] [id number]OS[address] POCT Glucose (12/11/2021 3:58 AM EDT) athologist Signature POC Glucose 189 65 - 199 [facility] mg/dL [facility] LABORATORY Comment: [...] [facility] [address] (ABNORMAL) POCT Glucose (12/10/2021 11:45 PM EDT) athologist Signature POC Glucose 205 (H) 65 - 199 [facility] mg/dL [facility] LABORATORY Comment: [...] [facility]/[place] [address] (ABNORMAL) POCT Glucose (12/10/2021 7:54 PM EDT) athologist Signature POC Glucose 225 (H) 65 - 199 [facility] mg/dL [facility] LABORATORY Comment: Supplemental ranges: <140 mg/dL before meals <180 mg/dL all other times of the day Specimen Anatomical Collection Method Collection Time Receive d Time (Source) Location / / Volume Laterality Blood 12/10/2021 7:54 PM 2 7:54 EDT PM EDT Iker Cuevas MD POINT OF CARE TEST ORDERABLE S Performing Organization Address City/State/[place] [address] Potassium (12/10/2021 7:46 PM EDT) athologist Signature Potassium 4.2 3.5 - 5.0 [facility] mmol/L [facility] LABORATORY Comment: Please note: ??Patients [...] Cuevas MD CHEMISTRY ORDERABLES Performing Organization Address City/[facility]/[place] [address] (ABNORMAL) Basic Metabolic Panel (non-fasting) (12/10/2021 6:12 PM EDT) athologist Signature Glucose Lvl 246 (H) 65 - 199 [facility] mg/dL [facility] LABORATORY Comment: Diabetes: >=200 mg/dL plus symp toms BUN 50 (H) 10 - 20 mg/dL [facility] LABORATORY Creatinine 1.39 0.80 - 1.50 mg/dL [facility] 107 mmol/L [facility] CO2 22 22 - 31 mmol/L [facility] Anion Gap 16 (H) 5 - 15 mmol/L [facility] LABORATORY Calcium 8.3 (L) 8.5 - 10.5 mg/dL [facility] LABORATORY Estimated GFR 49 (L) >=60 mL/min/1.73 m?? [facility] [...] Cuevas MD CHEMISTRY ORDERABLES Performing Organization Address City/[facility]/[place] [address] POCT Glucose (12/10/2021 4:59 PM EDT) P athologist Signature POC Glucose 158 65 - 199 [facility] mg/dL [facility] [...] Organization Address City/State/[place] [address] (ABNORMAL) POCT Glucose (12/10/2021 12:43 PM EDT) P athologist Signature POC Glucose 241 (H) 65 - 199 [facility] mg/dL [facility] LABORATORY Comment: Supplemental ranges: <140 mg/dL before meals <180 mg/dL all other times of the day Specimen Anatomical Collection Method Collection Time Receive d Time (Source) Location / / Volume Laterality Blood 12/10/2021 12:43 12/10/2021 PM EDT 12:43 PM EDT Iker Cuevas MD POINT OF CARE TEST ORDERABLE S Performing Organization Address City/State/ZIP Code Phon e Number [facility] [address] EKG 12 Lead (12/10/2021 11:17 AM EDT) Component Value Ref Range Test Analysis Performed Pathologis t Method Time At Signature Ventricular rate 62 BPM MUSE SYSTEM Atrial Rate 62 BPM MUSE SYSTEM P-R Interval 142 ms MUSE SYSTEM QRS Duration 100 ms MUSE SYSTEM Q-T Interval 434 ms MUSE SYSTEM QTC Calculated 440 ms MUSE SYSTEM (Bezet) Calculated P Lackey 34 degrees MUSE SYSTEM Calculated R Lackey -39 degrees MUSE SYSTEM Calculated T Lackey 92 degrees MUSE SYSTEM INTERPRETATION Normal sinus [...] Laterality Volume Narrative 12/10/2021 12:04 PM EDT ?[facility] ? Cardiac Cathete rization/Intervention Report ? Patient Name: Don Fatima. ? Procedure Date: 12/10/2021 ? A #: [id number] ? Primary Physician: Nolbes, Vitaliy P ? Case #: [id number] ? File Name: [id number] ? Catheterization Order Number: [id number] ? [facility] ? Final Report [place], [place] ? Patient Name: ? Don E. Stewa rt ? ID#: ?[id number] ? : ?1945 ? Procedure Date: ? December 10, 2021 ? Case #: ? [id number] ? Room: ? 1 ? Case Physician: [...] for ?the mobile lab technician visit is ACS great er [...] procedure. ?1. ?? Left internal mammary art naila graft to the LAD ? There was [...] ?3.75 guiding catheter and a 3.5 Fr [place] 20 Mhz using Manual ?pullback. ??Imaging [...] ?3.75 guiding catheter and a 3.5 Fr [facility] [place] 20 Mhz using Manual ?pullback. ??Imaging [...] Procedure Note Vitaliy Nobles MD - 01/14/2022 [facility] Cardiac Catheterization/Intervention Re port Patient Name: Kushal Don VedaMadiha Procedure Date: 12/10/2021 A #: [id number] Primary Physician: Vitaliy Nobles Case #: [id number] File Name: [id number] Catheterization Order Number: [id number] [facility] Final Report [place], [place] Patient Name: Don Fatima ID#: [...] for the mobile lab technician visit is ACS greater than [...] and a 3.5 Fr [place] 20 Mhz using Manual pullback. Imaging [...] and a 3.5 Fr [place] 20 Mhz using Manual pullback. Imaging was successful. Image quality was good. The distal LM showed moderate diffuse atherosclero tic plaque. Post Intervention: The stent was well e xpanded and apposed. Indication for Intervention: Coronary intervention was indicated for primary therapy for an acute myocardial infarction. The priority for the procedure was Urgent. The [facility] indication for the procedure was [...] require modification of this regimen. Consult [facility] Interventional Cardiology for questions. The [...] POC Glucose 262 (H) 65 - 199 [facility] mg/dL [facility] [...] Organization Address City/State/[place] [address] (ABNORMAL) POCT Glucose (12/10/2021 9:48 AM EDT) athologist Signature POC Glucose 279 (H) 65 - 199 [facility] mg/dL [facility] LABORATORY Comment: Supplemental ranges: <140 mg/dL before meals <180 mg/dL all other times of the day Specimen Anatomical Collection Method Collection Time Receive d Time (Source) Location / / Volume Laterality Blood 12/10/2021 9:48 AM 9:48 EDT AM EDT Iker Cuevas MD POINT OF CARE TEST ORDERABLE S Performing Organization Address City/State/[place] [address] (ABNORMAL) POCT Glucose (12/10/2021 9:07 AM EDT) P athologist Signature POC Glucose 268 (H) 65 - 199 [facility] mg/dL [facility] LABORATORY Comment: Supplemental ranges: <140 mg/dL before meals <180 mg/dL all other times of the day Specimen Anatomical Collection Method Collection Time Receive d Time (Source) Location / / Volume Laterality Blood 12/10/2021 9:07 AM 9:07 EDT AM EDT Iker Cuevas MD POINT OF CARE TEST ORDERABLE S Performing Organization Address City/State/[place] [address] (ABNORMAL) Point of Care Blood Gas Historical (12/10/2021 9:04 AM EDT) Patholo gist Method Time Signature POC pH 7.40 7.35 - [facility] 7.45 [facility] LABORATORY POC PCO2 40 35 - 45 [facility] mmHg [facility] LABORATORY POC PO2 63 (L) 85 - 104 [facility] LABORATORY POC Base Excess 0.0 -3.0 - 3.0 [facility] K mmol/L [facility] LABORATORY POC HCO3 24.8 20.0 - [facility] 26.0 [facility] mmol/[facility] LABORATORY POC Sodium 143 135 - 145 [facility] mmol/L [facility] LABORATORY POC Potassium 3.7 3.5 - 5.0 [facility] mmol/L [facility] LABORATORY POC Ionized Ca 1.07 (L) 1.15 - [facility] 1.33 [facility] mmol/L HOSPITAL LABORATORY POC Hematocrit 30.0 (L) 40.0 - [facility] 51.0 % [facility] LABORATORY POC Calc Hgb 10.2 (L) 13.7 - [facility] 17.5 g/dL [facility] LABORATORY Comment: The calculation of hemoglobin f rom hematocrit assumes a normal MCHC. POC Bgas Loc CC LAB [facility] LABORATORY Specimen Anatomical Collection Method Collection Time Receive d Time (Source) Location / / Volume Laterality Blood 12/10/2021 9:04 AM 2 EDT 12:00 PM EDT Ifeanyi Truong MD CHEMISTRY ORDERABLES Performing Organization Address City/[facility]/[place] [address] (ABNORMAL) POCT Glucose (12/10/2021 7:19 AM EDT) athologist Signature POC Glucose 274 (H) 65 - 199 [facility] mg/dL [facility] [...] [facility] [address] Heparin (unfractionated) Level (12/10/2021 4:25 AM EDT) athologist Signature Heparin UFH 0.69 IU/mL [facility] LABORATORY Comment: Heparin (anti-Xa) [...] Address City/State/ZIP Code Phon e Number [address] (ABNORMAL) Differential, Automated (12/10/2021 4:25 AM EDT) [facility] Method Time Signature Neutrophils % 79.8 % [facility] LABORATORY Neutr Abs (ANC) 7.47 (H) 1.70 - [facility] 6.10 [facility] x10(3)/[facility] LABORATORY Lymphocytes % 10.6 % [facility] LABORATORY Lymphocytes Abs 1.0 0.9 - 3.2 [facility] x10(3)/[facility] LABORATORY Monocytes % 8.4 % [facility] LABOR[facility]ORY Monocyte Abs 0.8 0.3 - 0.9 [facility] x10(3)/[facility] LABORATORY Eosinophils % 0.6 % [facility]ORY Eosinophils Abs 0.1 0.0 - 0.4 [facility] x10(3)/[facility] LABORATORY Basophils % 0.2 % [facility] Basophils Abs 0.0 0.0 - 0.1 [facility] x10(3)/[facility] LABORATORY Immature Gran % 0.40 % [...] Morgan BROWN HEMATOLOGY ORDERABLES Performing Organization Address City/[facility]/ZIP Code Phon e Number [address] (ABNORMAL) Hemogram (12/10/2021 4:25 AM EDT) Analysis Performed At Patho logist Time Signature WBC 9.4 4.0 - 9.5 [facility] x10(3)/[facility] LABORATORY RBC 3.81 (L) 4.58 - [facility] 5.54 [facility] x10(6)/[facility] LABORATORY Hemoglobin 11.1 (L) 13.7 - [facility] 16.5 g/dL [facility] LABORATORY Hematocrit 34.0 (L) 40.5 - [facility] 48.5 % [facility] LABORATORY MCV 89.2 82.9 - [facility] 93.1 [facility] LABORATORY MCH 29.1 27.5 - [facility] 32.1 pg [facility] LABORATORY MCHC 32.6 32.0 - [facility] 35.7 g/dL [facility] LABORATORY Platelets 183 145 - 357 [facility] x10(3)/[facility] LABORATORY RDWSD 49.9 (H) 36.0 - [facility] 45.0 [facility] LABORATORY RDWCV 15.2 (H) 11.4 - [facility] 13.8 % [facility] LABORATORY MPV 9.8 7.6 - 12.9 [facility] LABORATORY nRBC % Auto 0.0 % [facility] LABORATORY nRBC Abs Auto 0.000 0.000 - [facility] 0.000 [facility] x10(3)/[facility] LABORATORY Specimen Anatomical Collection Method Collection Time Receive d Time (Source) Location / / Volume Laterality Blood 12/10/2021 4:25 AM 2 4:34 EDT AM EDT Resulting Agency Comment Spec In Lab Morgan BROWN HEMATOLOGY ORDERABLES Performing Organization Address City/State/Z[place] [address] (ABNORMAL) Prothrombin Time (12/10/2021 4:25 AM EDT) P athologist Signature PT 20.0 (H) 9.4 - 12.5 [facility] LABORATORY INR 1.7 [facility] LABORATORY Comment: An INR [...] Organization Address City/State/ZIP Code Phon e Number [place] [id number] Drive (ABNORMAL) BMP w/fasting Glucose (12/10/2021 4:25 AM EDT) athologist Signature Glucose 210 (H) 65 - 99 [facility] Fasting mg/dL [facility] LABORATORY Comment: ?Fasting* Glucose Interpretive C [...] of Diabetes Mellitus, Position Statement from the [place] [employer]. ??Diabete s Care, Volume 33, Supplement 1, Jul 2009 BUN 54 (H) 10 - 20 mg/dL [facility] LABORATORY Creatinine 1.52 (H) 0.80 - 1.50 mg/dL [facility] Estimated GFR 44 (L) >=60 mL/min/1.73 m?? [facility] [...] Organization Address City/State/Z[place] [address] Magnesium (12/10/2021 4:25 AM EDT) P athologist Signature Magnesium 0.95 0.69 - 1.07 [facility]/L [facility] LABORATORY Specimen Anatomical Collection Method Collection Time Receive d Time (Source) Location / / Volume Laterality Blood 12/10/2021 4:25 AM 2 4:34 EDT AM EDT Resulting Agency Comment Spec In Lab kIer Cuevas MD CHEMISTRY ORDERABLES Performing Organization Address City/[facility]/[place] [address] POCT Glucose (12/10/2021 1:58 AM EDT) athologist Signature POC Glucose 164 65 - 199 [facility] mg/dL [facility] LABORATORY Comment: [...] [facility] [address] (ABNORMAL) POCT Glucose (12/09/2021 9:02 PM EDT) athologist Signature POC Glucose 313 (H) 65 - 199 [facility] mg/dL [facility] LABORATORY Comment: [...] [facility] [address] Heparin (unfractionated) Level (12/09/2021 7:30 PM EDT) athologist Signature Heparin UFH 0.48 IU/mL [facility] LABORATORY Comment: Heparin (anti-Xa) [...] Organization Address City/State/Z[place] [address] (ABNORMAL) Basic Metabolic Panel (non-fasting) (12/09/2021 7:30 PM EDT) athologist Signature Glucose Lvl 372 (H) 65 - 199 [facility] mg/dL [facility] LABORATORY Comment: Diabetes: >=200 mg/dL plus symp toms BUN 56 (H) 10 - 20 mg/dL [facility] LABORATORY Creatinine 1.75 (H) 0.80 - 1.50 mg/dL [facility] [...] 107 mmol/L [facility] CO2 22 22 - 31 mmol/L [facility] Anion Gap 14 5 - 15 mmol/L [facility] LABORATORY Calcium 8.1 (L) 8.5 - 10.5 mg/dL [facility] LABORATORY Estimated GFR 37 (L) >=60 mL/min/1.73 m?? [facility] [...] Organization Address City/State/[place] [address] (ABNORMAL) POCT Glucose (12/09/2021 6:34 PM EDT) P athologist Signature POC Glucose 408 (H) 65 - 199 [facility] mg/dL [facility] LABORATORY Comment: [...] [facility] [address] (ABNORMAL) POCT Glucose (12/09/2021 6:32 PM EDT) P athologist Signature POC Glucose 356 (H) 65 - 199 [facility] mg/dL [facility] LABORATORY Comment: Supplemental ranges: <140 mg/dL before meals <180 mg/dL all other times of the day Specimen Anatomical Collection Method Collection Time Receive d Time (Source) Location / / Volume Laterality Blood 12/09/2021 6:32 PM 2 6:32 EDT PM EDT Iker Cuevas MD POINT OF CARE TEST ORDERABLE S Performing Organization Address City/State/[place] [address] (ABNORMAL) POCT Glucose (12/09/2021 4:19 PM EDT) athologist Signature POC Glucose 347 (H) 65 - 199 [facility] mg/dL [facility] [...] [facility] [address] Heparin (unfractionated) Level (12/09/2021 1:29 PM EDT) athologist Signature Heparin UFH 0.42 IU/mL [facility] LABORATORY Comment: Heparin (anti-Xa) [...] Organization Address City/State/[place] [address] (ABNORMAL) POCT Glucose (12/09/2021 12:02 PM EDT) P athologist Signature POC Glucose 235 (H) 65 - 199 [facility] mg/dL [facility] LABORATORY Comment: [...] [facility] [address] (ABNORMAL) POCT Glucose (12/09/2021 9:44 AM EDT) P athologist Signature POC Glucose 214 (H) 65 - 199 [facility] mg/dL [facility] LABORATORY Comment: [...] [facility]/[place] [address] EKG 12 Lead (12/09/2021 7:57 AM EDT) Component Value Ref Range Test Analysis Performed Pathologis t Method Time At Signature Ventricular rate 101 BPM MUSE SYSTEM Atrial Rate 101 BPM MUSE SYSTEM P-R Interval 150 ms MUSE SYSTEM QRS Duration 112 ms MUSE SYSTEM Q-T Interval 364 ms MUSE SYSTEM QTC Calculated 471 ms MUSE SYSTEM (Bezet) Calculated P Lackey 59 degrees MUSE SYSTEM Calculated R [place] -42 degrees MUSE SYSTEM Calculated T [place]key 102 degrees MUSE SYSTEM INTERPRETATION Sinus tachycardia Occasional Premature ventricular com plexes MUSE SYSTEM Left axis deviation 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) Abnormal ECG When compared with ECG of 08-DEC-2021 16:40, Premature ventricular complexes are now Present Confirmed by MD Fernandez Danette ([id number]) on 12/10/2021 4:55:06 PM Specimen Anatomical Collection [...] [facility] mg/dL [facility] [...] Organization Address City/State/[place] [address] (ABNORMAL) Hemoglobin A1c (12/09/2021 [...] Mellitus, Diabetes Care 2013; 36: Suppl. 1, I63-51 Est Avg Gluc See note mg/dL [facility] [...] Additional resources are available on [facility] ADA website. Macario HAMMOND, Ruthann J, Deysi R, et al. ??Tr anslating the A1C assay into estimated average glucose values. ??Diabetes Care 2008:31(8):1308-3445. Specimen Anatomical Collection Method Collection Time Receive d Time (Source) Location / / Volume Laterality Blood Venous Draw / 12/09/2021 6:18 AM 12/10/19 22 Unknown EDT 12:24 PM EDT Resulting Agency Comment Spec In Lab Migdalia BROWN CHEMISTRY ORDERABLES Performing Organization Address City/State/[place] [address] (ABNORMAL) Prothrombin Time (12/09/2021 6:18 AM EDT) athologist Signature PT 26.6 (H) 9.4 - 12.5 [facility] LABORATORY INR 2.3 [facility] LABOR[facility]ORY Comment: An INR [...] Migdalia BROWN HEMATOLOGY ORDERABLES Performing Organization Address City/[facility]/ZIP Code Phon e Number [address] Heparin (unfractionated) Level (12/09/2021 6:18 AM EDT) P athologist Signature Heparin UFH 0.24 IU/mL [facility] LABORATORY Comment: Heparin (anti-Xa) [...] Cuevas MD HEMATOLOGY ORDERABLES Performing Organization Address City/[facility]/[place] [address] (ABNORMAL) Differential, Automated (12/09/2021 6:18 AM EDT) Patholo gist Method Time Signature Neutrophils % 91.5 % [facility] LAB[facility]ORY Neutr Abs (ANC) 15.78 (H) 1.70 - [facility] 6.10 [facility] x10(3)/[facility] L LABORATORY Lymphocytes % 2.9 % [facility] LAB[facility]ORY Lymphocytes Abs 0.5 (L) 0.9 - 3.2 [facility] x10(3)/[facility] LABORATORY Monocytes % 4.9 % [facility] Monocyte Abs 0.8 0.3 - 0.9 [facility] x10(3)/[facility] LABORATORY Eosinophils % 0.0 % [facility] Eosinophils Abs 0.0 0.0 - 0.4 [facility] x10(3)/[facility] LABORATORY Basophils % 0.2 % [facility] Basophils Abs 0.0 0.0 - 0.1 [facility] x10(3)/[facility] LABORATORY Immature Gran % 0.50 % [...] Organization Address City/State/[place] [address] (ABNORMAL) Hemogram (12/09/2021 6:18 AM EDT) Analysis Performed At Patho logist Time Signature WBC 17.2 (H) 4.0 - 9.5 [facility] x10(3)/[facility] LABORATORY RBC 4.32 (L) 4.58 - [facility] 5.54 [facility] x10(6)/[facility] LABORATORY Hemoglobin 12.6 (L) 13.7 - [facility] 16.5 g/dL [facility] LABORATORY Hematocrit 38.9 (L) 40.5 - [facility] 48.5 % [facility] LABORATORY MCV 90.0 82.9 - [facility] 93.1 [facility] LABORATORY MCH 29.2 27.5 - [facility] 32.1 pg [facility] LABORATORY MCHC 32.4 32.0 - [facility] 35.7 g/dL [facility] LABORATORY Platelets 193 145 - 357 [facility] x10(3)/[facility] LABORATORY RDWSD 50.4 (H) 36.0 - [facility] 45.0 [facility] LABORATORY RDWCV 15.2 (H) 11.4 - [facility] 13.8 % [facility] LABORATORY MPV 9.5 7.6 - 12.9 [facility] LABORATORY nRBC % Auto 0.0 % [facility] LAB[facility]ORY nRBC Abs Auto 0.000 0.000 - [facility] 0.[facility] x[facility](3)/[facility] LABORATORY Specimen Anatomical Collection Method Collection Time Receive d Time (Source) Location / / Volume Laterality Blood 12/09/2021 6:18 AM 6:33 EDT AM EDT Resulting Agency Comment Spec In Lab Morgan BROWN HEMATOLOGY ORDERABLES Performing Organization Address City/State/[place] [address] Lipid Panel (Reflex Direct LDL) (12/09/2021 6:18 AM EDT) P athologist Signature Chol, Total 105 mg/dL [facility] LABOR[facility]ORY Comment: Lower Risk: <200 mg/dL Average Risk: 200-239 mg/dL Higher Risk: >al=859 mg/dL Triglycerides 133 mg/dL [facility] LABORATORY Comment: Average Risk/Lower Risk: <150 mg/dL Borderline High Risk: 150-199 mg/dL High Risk: 200-499 mg/dL Very High Risk: >ff=573 mg/dL HDL 42 mg/dL [facility] LABORATORY Comment: Males: ?? Higher Risk: <40 mg/dL Females: ?? Higher Risk: <50 mg/dL LDL Cholesterol 36 mg/dL [facility] Comment: Lowest Risk: <100 mg/dL Lower Risk: 100-129 mg/dL Borderline High Risk: 130-159 mg/dL High Risk: 160-189 mg/dL Very High Risk: >jk=472 mg/dL Chol/HDL Ratio 2.5 ratio [facility] LABOR[facility]ORY Lipid Interpretation See Note [facility] LABORATORY Comment: Lipid management should be guided by a p atient? s ASCVD risk, goals and preferences. ACC/AHA Guidelines recommend high intens ity statin if clinical ASCVD or LDL greater than or equal to 190 mg/dL. [email or web address]/QWG-VAS-Htpqpmaqb Adults aged 40-75 with LDL 70-189 mg/dL should have their 10 year ASCVD risk estimated with the ACC/AHA ASCVD risk es timator http://tools.acc.org/JKCNP-Vzcy-Xppemahg r/ Statin should be discussed if risk [...] Organization Address City/State/[place] [address] TSH (12/09/2021 6:18 AM EDT) athologist Signature TSH 1.60 0.27 - 4.20 [facility] mcIU/mL [facility] LABORATORY Comment: Reference Interval (mcIU/mL): Females: ??First Trimester: 0.23-3.88 ??Second Trimester: 0.22-3.90 ??Third Trimester: 0.44-4.66 Specimen Anatomical Collection Method Collection Time Receive d Time (Source) Location / / Volume Laterality Blood 12/09/2021 6:18 AM 2 6:33 EDT AM EDT Resulting Agency Comment Spec In Lab Iker Cuevas MD CHEMISTRY ORDERABLES Performing Organization Address City/[facility]/[place] [address] Hepatic Function Panel (12/09/2021 6:18 AM EDT) athologist Signature Total Protein 7.3 6.1 - 8.0 [facility] g/dL [facility] LABORATORY Albumin 4.2 3.2 - 5.2 [facility] g/dL [facility] LABORATORY AST 25 0 - 39 [facility] unit/L [facility] LABORATORY ALT 15 0 - 55 [facility] unit/L [facility] LABORATORY Alk Phos 75 40 - 130 [facility] unit/L [facility] LABORATORY Total 1.1 0.2 - 1.3 [facility] Bilirubin mg/dL [facility] LABORATORY Bili, Direct 0.2 0.0 - 0.3 [facility] mg/dL [facility] LABORATORY Specimen Anatomical Collection Method Collection Time Receive d Time (Source) Location / / Volume Laterality Blood 12/09/2021 6:18 AM 2 6:33 EDT AM EDT Resulting Agency Comment Spec In Lab Iker Cuevas MD CHEMISTRY ORDERABLES Performing Organization Address City/[facility] [place] [address] (ABNORMAL) BMP w/fasting Glucose (12/09/2021 6:18 AM EDT) P athologist Signature Glucose 235 (H) 65 - 99 [facility] Fasting mg/dL [facility] LABORATORY Comment: ?Fasting* Glucose Interpretive C [...] of Diabetes Mellitus, Position Statement from the [place] [employer]. ??Diabete s Care, Volume 33, [...] Estimated GFR 52 (L) >=60 mL/min/1.73 m?? [facility] [...] Address City/State/ZIP Code Phon e Number [address] Magnesium (12/09/2021 6:18 AM EDT) P athologist Signature Magnesium 0.81 0.69 - 1.07 [facility] mmol/L [facility] LABORATORY Specimen Anatomical Collection Method Collection Time Receive d Time (Source) Location / / Volume Laterality Blood 12/09/2021 6:18 AM 2 6:33 EDT AM EDT Resulting Agency Comment Spec In Lab Iker Cuevas MD CHEMISTRY ORDERABLES Performing Organization Address City/State/[place] [address] (ABNORMAL) Troponin (12/09/2021 6:18 AM EDT) athologist Signature Troponin-T 1.13 (H) 0.00 - [facility] 0.00 ng/mL [facility] LABORATORY Comment: The 99th percentile for [...] additional sample may be indicated. Reference: Third [place] Definition of Myocardial Infarction. Journal of the [place] College [employer] 2012;60:1581-98 Specimen Anatomical Collection Method Collection Time Receive d Time (Source) Location / / Volume Laterality Blood 12/09/2021 6:18 AM 6:33 EDT AM EDT Resulting Agency Comment Spec In Lab Iker Cuevas MD CHEMISTRY ORDERABLES Performing Organization Address City/State/ZIP Code Phon e Number [place] [id number] XR Chest One View [...] who have questions please contact the health weekend caregiver that requested your imaging first. ? Narrative [...] ho have questions please contact the health weekend caregiver that requested your imaging first. Electronically signed by: Yoselin White, [facility] ([phone]), at 12/09/2021 5:35 AM Amber Sanches MD IMG DX ORDERABLES (ABNORMAL) BLOOD GAS 2 ARTERIAL (12/09/2021 5:14 AM EDT) Analysis Performed At Path logis Time Signature pH Art 7.43 7.35 - [facility] 7.45 [facility] LABORATORY pCO2 Art 36 35 - 45 [facility] LABORATORY pO2 Art 67 (L) 85 - 104 [facility] LABORATORY HCO3 Art 23.4 20.0 - [facility] 26.0 [facility] mmol/L [facility] LABORATORY BE Art -0.9 -3.0 - 3.0 [facility] mmol/L [facility] LABORATORY Hgb Blood Gas 13.2 (L) 13.7 - [facility] 16.5 g/dL [facility] LABORATORY O2HB Art 91.3 (L) 94.0 - [facility] 97.0 % [facility] LABORATORY COHB Art 0.4 % [facility] LAB[facility]ORY Comment: Nonsmokers: 0.5-1.5% COHB Smokers: Variable, but usually less than 10% Toxic: 20-30% COHB Lethal: Greater than 60% COHB METHB Art 0.4 <=1.5 % [facility] LABORATORY Na Whole Blood 138 135 - 145 mmol/L [facility] K Whole Blood 4.1 3.5 - 5.0 mmol/L [facility] LAB[facility] Comment: Please note: Patients with WBC >100,000 may have falsely elevated Potassium levels. Contact the Clinical Chemistry L aboratory if there are any questions. ICa Whole Blood 1.09 (L) 1.15 - 1.33 mmol/L [facility] LABOR[facility]ORY Comment: Note: ??Total bilirubin higher than 20 m g/dL may lead to falsely low ionized calcium. CL Whole Blood 104 98 - 107 mmol/L [facility] LABORATORY Gluc Whole Bld 223 (H) 65 - 199 mg/dL [facility] LABORATORY Comment: Diabetes: >=200 mg/dL plus symp toms. Lactate WB 2.7 (H) 0.5 - 2.2 mmol/L [facility] LABORATORY FIO2 Art 35 % [facility] [...] Organization Address City/State/Z[place] [address] POCT Glucose (12/09/2021 4:46 AM EDT) athologist Signature POC Glucose 198 65 - 199 [facility] mg/dL [facility] [...] Organization Address City/State/[place] [address] (ABNORMAL) POCT Glucose (12/09/2021 3:01 AM EDT) athologist Signature POC Glucose 225 (H) 65 - 199 [facility] mg/dL [facility] LABORATORY Comment: Supplemental ranges: <140 mg/dL before meals <180 mg/dL all other times of the day Specimen Anatomical Collection Method Collection Time Receive d Time (Source) Location / / Volume Laterality Blood 12/09/2021 3:01 AM 2 3:01 EDT AM EDT Iker Cuevas MD POINT OF CARE TEST ORDERABLE S Performing Organization Address City/State/[place] [address] (ABNORMAL) POCT Glucose (12/08/2021 10:55 PM EDT) athologist Signature POC Glucose 327 (H) 65 - 199 [facility] mg/dL [facility] LABORATORY Comment: Supplemental ranges: <140 mg/dL before meals <180 mg/dL all other times of the day Specimen Anatomical Collection Method Collection Time Receive d Time (Source) Location / / Volume Laterality Blood 12/08/2021 10:55 12/08/2021 PM EDT 10:55 PM EDT Iker Cuevas MD POINT OF CARE TEST ORDERABLE S Performing Organization Address City/State/[place] [address] Heparin (unfractionated) Level (12/08/2021 10:03 PM EDT) P athologist Signature Heparin UFH 0.18 IU/mL [facility] LABORATORY Comment: Heparin (anti-Xa) [...] Organization Address City/State/Z[place] [address] (ABNORMAL) Troponin (12/08/2021 10:03 PM EDT) athologist Signature Troponin-T 0.92 (H) 0.00 - [facility] 0.00 ng/mL [facility] LABORATORY Comment: The 99th percentile for [...] additional sample may be indicated. Reference: Third [place] Definition of Myocardial Infarction. Journal of the [place] [employer] 2012;60:1581-98 Specimen Anatomical Collection Method Collection Time Receive d Time (Source) Location / / Volume Laterality Blood 12/08/2021 10:03 12/08/2021 PM EDT 10:31 PM EDT Resulting Agency Comment Spec In Lab Iker Cuevas MD CHEMISTRY ORDERABLES Performing Organization Address City/[facility]/[place] [address] (ABNORMAL) POCT Glucose (12/08/2021 8:22 PM EDT) athologist Signature POC Glucose 429 (H) 65 - 199 [facility] R[facility] mg/dL [facility] LABORATORY Comment: [...] [facility]/[place] [address] (ABNORMAL) POCT Glucose (12/08/2021 7:06 PM EDT) P athologist Signature POC Glucose 442 (H) 65 - 199 [facility] mg/dL [facility] LABORATORY Comment: [...] [facility]/[place] [address] Magnesium (12/08/2021 6:02 PM EDT) athologist Signature Magnesium 0.86 0.69 - 1.07 [facility] mmol/L [facility] LABORATORY Specimen Anatomical Collection Method Collection Time Receive d Time (Source) Location / / Volume Laterality Blood 12/08/2021 6:02 PM 6:36 EDT PM EDT Resulting Agency Comment Spec In Lab Iker Cuevas MD CHEMISTRY ORDERABLES Performing Organization Address City/State/ZIP Code Phon e Number [address] (ABNORMAL) Basic Metabolic Panel (non-fasting) (12/08/2021 6:02 PM EDT) athologist Signature Glucose Lvl 392 (H) 65 - 199 [facility] mg/dL [facility] LABORATORY Comment: Diabetes: >=200 mg/dL plus symp toms BUN 41 (H) 10 - 20 mg/dL [facility] LABORATORY Creatinine 1.44 0.80 - 1.50 mg/dL [facility] 107 mmol/L [facility] CO2 20 (L) 22 - 31 mmol/L [facility] [...] Organization Address City/State/[place] [address] (ABNORMAL) Differential, Automated (12/08/2021 6:02 PM EDT) [facility] gist Method Time Signature Neutrophils % 89.5 % [facility] LABORATORY Neutr Abs (ANC) 13.97 (H) 1.70 - [facility] 6.10 [facility] x10(3)/[facility] LABORATORY Lymphocytes % 3.7 % [facility] LABORATORY Lymphocytes Abs 0.6 (L) 0.9 - 3.2 [facility] x10(3)/[facility] LABORATORY Monocytes % 6.1 % [facility] LABOR[facility]ORY Monocyte Abs 1.0 (H) 0.3 - 0.9 [facility] x10(3)/[facility] LABORATORY Eosinophils % 0.0 % [facility] LABOR[facility]ORY Eosinophils Abs 0.0 0.0 - 0.4 [facility] x10(3)/[facility] LABORATORY Basophils % 0.2 % [facility] Basophils Abs 0.0 0.0 - 0.1 [facility] x10(3)/[facility] LABORATORY Immature Gran % 0.50 % [...] Organization Address City/State/Z[place] [address] (ABNORMAL) Hemogram (12/08/2021 6:02 PM EDT) Analysis Performed At Patho logist Time Signature WBC 15.6 (H) 4.0 - 9.5 [facility] x[facility] LABORATORY RBC 4.05 (L) 4.58 - [facility] RYAN 5.54 [facility] x10(6)/[facility] LABORATORY Hemoglobin 11.8 (L) 13.7 - [facility] 16.5 g/dL [facility] LABORATORY Hematocrit 35.8 (L) 40.5 - [facility] 48.5 % [facility] LABORATORY MCV 88.4 82.9 - [facility] 93.1 [facility] LABORATORY MCH 29.1 27.5 - [facility] R[facility]AN 32.1 pg [facility] LABORATORY MCHC 33.0 32.0 - [facility] 35.7 g/dL [facility] LABORATORY Platelets 178 145 - 357 [facility] LABORATORY RDWSD 49.3 (H) 36.0 - [facility] RYAN 45.0 [facility] LABORATORY RDWCV 15.1 (H) 11.4 - [facility] RYAN 13.8 % [facility] LABORATORY MPV 10.4 7.6 - 12.9 [facility] LABORATORY nRBC % Auto 0.0 % [facility] LABORATORY nRBC Abs Auto 0.000 0.000 - [facility] 0.000 [facility] x10(3)/[facility] LABORATORY Specimen Anatomical Collection Method Collection Time Receive d Time (Source) Location / / Volume Laterality Blood 12/08/2021 6:02 PM 2 6:36 EDT PM EDT Resulting Agency Comment Spec In Lab Morgan BROWN HEMATOLOGY ORDERABLES Performing Organization Address City/State/ZIP Code [place] [address] (ABNORMAL) Troponin (12/08/2021 6:02 PM EDT) athologist Signature Troponin-T 0.89 (H) 0.00 - [facility] 0.00 ng/mL [facility] LABORATORY Comment: The 99th percentile for [...] additional sample may be indicated. Reference: Third [place] Definition of Myocardial Infarction. Journal of the [place] College [employer]iology 2012;60:1581-98 Specimen Anatomical Collection Method Collection Time Receive d Time (Source) Location / / Volume Laterality Blood 12/08/2021 6:02 PM 2 6:36 EDT PM EDT Resulting Agency Comment Spec In Lab Iker Cuevas MD CHEMISTRY ORDERABLES Performing Organization Address City/State/ZIP Code [place] [address] COVID-19 PCR (12/08/2021 5:00 PM EDT) [facility] Method Time Signature SARS-CoV-2 Not [...] using the [employer]plex[employer] COVID-19 Direct Assay by [employer] marcum as authorized by the FDA issued [...] Department of Pathology and Laboratory Medicine at [facility], certified under the Clinical Laboratory Improvement [...] clinical management guidance information are available at [facility] Coronavirus Disease 2019 (COVID-19) webpage under Information fo r Healthcare Professionals (https://www.cdc.gov/coronavirus/2019-nc ov/hcp/index.html). Additional information about this and ot her EUA tests can be found in provider and patient fact sheets at the following FDA website: https://www.fda.gov/medical-devices/baunxjjmfcd-zscevlz-8810-zjtpt-34-wbfiwtfta- zqu-ndqwbittwlocmk-ymcrjjf-devices/aajhw-truvspytkbh-ijqt SARS-CoV-2 Source DIRECTOR OF DIAGNOSTIC IMAGING Swab [facility] LABORATORY Specimen (Source) Anatomical Collection Method Collection Time Re ceived Time Location / / Volume Laterality Nasopharyngeal Swab 12/08/2021 5:00 12/08 PM EDT 6:03 PM EDT Comment: Symptoms->Surveillance Resulting Agency Comment Spec In Lab Iker Cuevas MD MICROBIOLOGY - GENERAL ORDER [place] Performing Organization Address City/[facility] Phon e Number [place] [id number]OS[address] Drive EKG 12 Lead (12/08/2021 4:40 PM EDT) Component Value Ref Range Test Analysis Performed Pathologis t Method Time At Signature Ventricular rate 78 BPM MUSE SYSTEM Atrial Rate 78 BPM MUSE SYSTEM P-R Interval 152 ms MUSE SYSTEM QRS Duration 96 ms MUSE SYSTEM Q-T Interval 396 ms MUSE SYSTEM QTC Calculated 451 ms MUSE SYSTEM (Bezet) Calculated P [place] 44 degrees MUSE SYSTEM Calculated R [place] -31 degrees MUSE SYSTEM Calculated T [place] 124 degrees MUSE SYSTEM INTERPRETATION Normal sinus [...] Cuevas MD ECG ORDERABLES Performing Organization Address City/[facility] Phon e Number MUSE SYSTEM (ABNORMAL) POCT Glucose (12/08/2021 4:34 PM EDT) P athologist Signature POC Glucose 400 (H) 65 - 199 [facility] mg/dL [facility] LABORATORY Comment: Supplemental ranges: <140 mg/dL before meals <180 mg/dL all other times of the day Specimen Anatomical Collection Method Collection Time Receive d Time (Source) Location / / Volume Laterality Blood 12/08/2021 4:34 PM 4:34 EDT PM EDT Iker Cuevas MD POINT OF CARE TEST ORDERABLE S Performing Organization Address City/State/ZIP Code Phon e Number [facility] [address] documented in this encounter [...] of unspecified type of vessel, [place] or graft Cardiomyopathy, ischemic Other specified forms [...] Provider: Admin Adt)1744 (Given - Provider: Emma Gracia RN) 1717 (Given - Provider: Emma Garcia [...] Garcia RN )2034 (Given - Provider: Barbara Booige RN)2346 (Given - Provider: Barbara Boogie RN) [...] NOT CRUSH OR OPEN, Routine 1230 ([facility] Unhold - Provider: Admin Adt) [...] (Glutose) 40% oral geL(Linked Group 2) 0805 ([facility] Hold - Provider: Admin Adt - Reason: Transfer to a Procedural area)1230 ([facility] Unhold - Provider: Admin Adt) [...] (Intra-Procedure), Routine niCARdipine (Cardene) (100 mcg/mL) dilution (SOCIETY EDITOR) (CANCELED) 1030 (Given - Provider: Vitaliy Nobles [...] mg per tablet 1 tab let 0805 ([facility] Hold - Provider: Admin Adt - Reason: Transfer to a Procedural area)1230 ([facility] Unhold - Provider: Admin Adt) 1 tablet, Oral, 2 TIMES DAILY PRN, Start ing on Wed12/09/21 at 1628, Until Wed12/12/21 at 1312, Constipation, Routine sodium chloride 0.9 % (flush) (BD PosiFlush Normal Sean ine 0.9) flush 5-20 mL 0805 ([facility] Hold - Provider: Admin Adt - Reason: Transfer to a Procedural area)1230 ([facility] Unhold - Provider: Admin Adt) [...] episode. & nbsp; For persistent hypoglycemia, con bookie longer-acting treatment for the duration of the [...]
Routine documented in this encounter Care Teams Employment Program Representative Relationship Specialty Start Date End Date Lovely Vicente MD PCP - General 04/16/15 195 [facility] [address] [place] [address] documented as of this encounter
--- OUTSIDE RECORDS SUMMARY | 2022-04-20 08:11 | XMS_ITS | Encounter Summary ---
:1945 Author Organization [facility] [place] [address] Care Team Providers Name Role Phone Lovely Vicente MD Primary Care Provider Encounter Details Date Type Department Care Team Description 02/19/2020 Telephone Dermatology at [facility] Ariana Wilder LPN [address] [place] [address] Social History Tobacco Use Types Packs/Day [...] Zulma Dolan MD [facility] [place], [place] [address] (Wo rk) 05/28/2022 Laboratory Appointment Lab 05/28/2022 Office Visit Cardiology Zulma Dolan MD [facility] [address] Liz Poole PA [facility] [place] [address] 06/10/2022 Office Visit Dermatology Laura Scherer MD [facility] [address] [place], [place] [address] (Wo rk) documented as of this encounter Visit Diagnoses Not on filedocumented in this encounter Care Teams Visual Effects Editor Relationship Specialty Start Date End Date Lovely Vicente MD PCP - General 04/16/[address] [place] [address] documented as of this encounter
--- OUTSIDE RECORDS SUMMARY | 2022-04-20 08:11 | XMS_ITS | Encounter Summary ---
:1945 Author Organization [facility] [place] [address] Care Team Providers Name Role Phone Lovely Vicente MD Primary Care Provider Encounter Details Date Type Department Care Team Description 03/20/2021 Ancillary Procedure Radiology Library [place] [address] [place] [address] [phone] Social History Tobacco Use Types Packs/Day Years [...] Zulma Dolan MD [facility] [place] [address] [place], [place] [address] (Wo rk) 05/28/2022 Laboratory Appointment Lab 05/28/2022 Office Visit Cardiology Zulma Dolan MD [facility] [place] [address] Liz Poole PA [facility] [place] [address] 06/10/2022 Office Visit Dermatology Laura Scherer MD [facility] ER [address] [place], [place] [address] (Wo rk) documented as [...] Organization Address City/State/ZIP Code Phon e Number [place], [place] documented in this encounter Visit Diagnoses Not on filedocumented in this encounter Care Teams Pinmaker Relationship Specialty Start Date End Date Lovely Vicente MD PCP - General 04/16/[address] [place] [address] documented as of this encounter
--- OUTSIDE RECORDS SUMMARY | 2022-04-20 08:11 | XMS_ITS | Encounter Summary ---
:1945 Author Organization [facility] [place] [address] Care Team Providers Name Role Phone Lovely Vicente MD Primary Care Provider Encounter Details Date Type Department Care Team Description 04/16/2021 Laboratory Appointment Lab 3L [facility] [place] [id number] Social History Tobacco Use Types Packs/Day Years [...] MD [facility] [place], [place] [address] (Wo rk) 05/28/2022 Laboratory Appointment Lab 05/28/2022 Office Visit Cardiology Zulma Dolan MD [facility] [place] [place] [address] Liz Poole PA [facility] [place] [address] 06/10/2022 Office Visit Dermatology Laura Scherer MD [facility] ER [address] [place], [place] [address] (Wo rk) documented as of this encounter [...] Organization Address City/State/[place] [address] (ABNORMAL) Basic Metabolic Panel (non-fasting) (04/16/2021 9:58 AM EDT) athologist Signature Glucose Lvl 77 65 - 199 [facility] mg/dL [facility], [...] Organization Address City/State/[place] [address] documented in this encounter Visit Diagnoses Diagnosis Chronic systolic heart failure documented in this encounter Care Teams Group Rooms Coordinator Relationship Specialty Start Date End Date Lovely Vicente MD PCP - General 04/16/[address] [place] [address] documented as of this encounter
--- OUTSIDE RECORDS SUMMARY | 2022-04-20 08:11 | XMS_ITS | Encounter Summary ---
:1945 Author Organization [facility] [place] [address] Care Team Providers Name Role Phone Lovely Vicente MD Primary Care Provider Encounter Details Date Type Department Care Team Description 11/07/2019 TH Visit Cardiology at [facility] Danette Maxwell (arteriosclerotic heart disease); (TeleHealth) [facility] STACIE Gomes Cardiomyopathy, ischemic; Drive [facility] S/P CABG x 3; [place], [place] MARIA VICTORIA (obstructive sleep apnea) on CPAP [phone] CARDIOLOGY [phone] [place], [place] [address] Social History Tobacco Use Types [...] regurgitation present. 07/07/2019 - 07/21/2019 Zio Patch Dry Mop Maker The patient had a minimum heart rate [...] at last check 6. Post-op atrial fibrillation [id number] (CHF, HTN, DM, vascular disease, thromboembolism) Amiodarone discontinued Continue coumadin INR managed by PCP 7. PAD 08/06/2017: Right 1st, 2nd, 3rd toe amputation 08/11/2017: Left??femoral arterial access, RLE??angiogram, Balloon angioplasty of R PT with Eleazar 2.5 x 80 10/25/2017: right popliteal-pedal bypass at [facility] Continue Coumadin 8. Hypothyrodism S/p thyroidectomy [...] Dolan MD [facility] [place], [place] [address] (Wo rk) 05/28/2022 Laboratory Appointment Lab 05/28/2022 Office Visit Cardiology Zulma Dolan MD [facility] [place] [address] Liz Poole PA [facility] [place] [address] 06/10/2022 Office Visit Dermatology Laura Scherer MD [facility] [address] [place], [place] [address] (Wo rk) documented as of this encounter Visit Diagnoses Diagnosis ASHD (arteriosclerotic heart disease) Coronary atherosclerosis of unspecified type of vessel, [place] or graft Cardiomyopathy, ischemic Other specified forms of chronic ischemi c heart disease S/P CABG x 3 Postsurgical aortocoronary bypass status MARIA VICTORIA (obstructive sleep apnea) on CPAP Obstructive sleep apnea (adult) (pediatr ic) documented in this encounter Care Teams Shock Absorber Installer Relationship Specialty Start Date End Date Lovely Vicente MD PCP - General 04/16/[address] [place], [place] [address] documented as of this encounter
--- OUTSIDE RECORDS SUMMARY | 2022-04-20 08:11 | XMS_ITS | Encounter Summary ---
:1945 [place] [address] Care Team Providers Name Role Phone Lovely Vicente MD Primary Care Provider Reason for Visit Reason Comments Skin Cancer Examination Encounter Details Date Type Department Care Team Description 03/20/2021 Office Visit Dermatology at 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 Last visit at [facility] Derm: 01/02/2020 Medications: Reviewed in eD-H [...] FSE; history of Melanoma []Note routed to corporate secretary [x]Recall has been placed in scheduling system []Appointment scheduled at checkout Scribe attestation: Yoana Pang LPN has performed the documentation for this encounter in the presence of and acting as a scribe for LAURA RENE MD I performed the above scribed service and agree with the accuracy of the documentation in this encounter. Reviewed and signed by: LAURA RENE MD Dermatology [facility] documented in this encounter Plan of Treatment Upcoming Encounters Date Type Specialty Care Team Description 05/28/2022 Appointment Cardiology TrudiZulma Knowles MD [facility] [place], [place] [address] (Wo rk) 05/28/2022 Laboratory Appointment Lab 05/28/2022 Office Visit Cardiology Zulma Dolan MD [facility] [place] [address] Liz Poole PA [facility] [place] [address] 06/10/2022 Office Visit Dermatology Laura Rene MD [facility] [address] [place], [place] [address] (Wo [...] keratosis documented in this encounter Care Teams Architectural Engineering Teacher Relationship Specialty Start Date End Date Lovely Vicente MD PCP - General 04/16/[address] [place] [address] documented as of this encounter
--- OUTSIDE RECORDS SUMMARY | 2022-04-20 08:11 | XMS_ITS | Encounter Summary ---
:1945 Author Organization [facility] [place] [address] Care Team Providers Name Role Phone Lovely Vicente MD Primary Care Provider Reason for Visit Auth/Cert Specialty Diagnoses / Procedures Referred By Contact Refer red To Contact Diagnoses NSTEMI Procedures emerg ipi Referral ID Status Reason Start Date Expiration Date Visits Requ ested Visits Authorized [id number] 1 1 Encounter Details Date Type Department Care Team Description 12/10/2021 Surgery Crushing Mill Operator Asa Coulter MD CARDIAC CATHETERIZATION [facility] [place] [address] [place] [address] [phone] (Wo rk) Social History Tobacco Use Types [...] Don Fatima Patient Age: 76 y.o. Language: Chadian Race: White Ethnicity: Not nor Admit date: [...] Peter PA-C Kelly LaFlamme PA-C Cardiovascular Medicine [phone] Discharge Diagnoses (Hospital Problems) and Secondary Diagnoses [...] 3.75 guiding catheter and a 3.5 Fr [place] [employer] [place] [employer] [place] 20 Mhz using Manual pullback. Imaging was successful. Image quality was good. The ostial LCX showed moderate diffuse atherosclerotic plaque with scattered three quadrant calcification. Measurements were performed after pre-dilation. Post Intervention: The stent was well expanded and apposed. Intravascular Ultrasound was performed in the distal LM using a 7 Fr EBU 3.75 guiding catheter and a 3.5 Fr [place] [employer] [place] 20 Mhz using Manual pullback. Imaging was [...] require modification of this regimen. Consult [facility] Interventional Cardiology [...] vascular congestion and cardiomegaly. ?? TTE from [facility] 12/08/21 ? Prior Cardiac Studies: TTE 07/28/2019 [...] prior thyroidectomy in 2012 who presented to [facility] with 1 week progressing breathlessness with patient [...] 03/2021 with Liz Poole PA-C. ?? At [facility], respiratory distress with hypoxia 86% on room [...] and diet drinks did not cause his IN. This is what his thought was the [...] appointments: During 8am-5pm Wednesday through Wednesday call [phone] to speak with a nurse in the cardiology clinic All other times call [phone] and ask to speak to the senior project manager engineering convenience store manager. Return to work: One week Driving: No driving for 48 hours after catheterization. Follow up Appointments: PCP Lovely Vicente MD [phone] to see patient at the end of December for annual check up. Patient to see Dr. Lorenzana at 1120 am at December 19 for a post hospital check up. Mattress Inspector Dr. De Oliveira to see you in [facility]. Left a message for office to set a date and time. Please call [phone] Nobles to see the patient for a same day cath in 2-3 weeks from now. Office to call with a date and time. For questions please call [phone] Home oxygen therapy: N/A Arrangements for VNA/home care: none Future Appointments and Orders Future Orders Complete By Expires Basic Metabolic Panel (non-fasting) [LAB15 Custom] 12/19/2021 (Approximate) 12/12/2022 Process Instructions: INCLUDES: Calcium, BUN, Creat, GFR, Glucose, Lytes Scheduling Instructions: Comments: Questions: Referral to Cardiac Rehab [[id number] Custom] As directed Process Instructions: If no [...] appointments: During 8am-5pm Wednesday through Wednesday call [phone] to speak with a nurse in the cardiology clinic All other times call [phone] and ask to speak to the senior project manager engineering convenience store manager. Return to work: One week Driving: No driving for 48 hours after catheterization. Follow up Appointments: PCP Lovely Vicente MD [phone] to see patient at the end of December for annual check up. Patient to see Dr. Lorenzana at 1120 am at December 19 for a post hospital check up. Mattress Inspector Dr. De Oliveira to see you in [facility]. Left a message for office to set a date and time. Please call [phone] Nobles to see the patient for a same day cath in 2-3 weeks from now. Office to call with a date and time. For questions please call [phone] Home oxygen therapy: N/A Arrangements for VNA/home [...] Note Patient Name: Don Fatima Service: MOTOR COACH CHAUFFEUR / PA Responsible Attending: Ifeanyi Truong MD [...] patent THOMPSON-LAD and RPDA 95% lesion. Underwent TUKCER to prox LCX with plans for staged procedure to RPDA as outpatient. He was given Lasix 80mg IV x1 in minilab operator. Tolerated procedure well. Home today at [...] pulmonary vascular congestion and cardiomegaly. TTE from [facility] 12/08/21 Prior Cardiac Studies: TTE 07/28/2019 SUMMARY: [...] with MD Janneth Neville PA 12/12/2021 Pager [phone] Associated attestation - Ifeanyi Truong MD - [...] for each meal) Desirae Jett APRN [facility] Endocrinology Diabetes Management Pager [phone] 20 minutes of this 35 minute visit [...] Note Patient Name: Don Fatima Service: MOTOR COACH CHAUFFEUR / PA Responsible Attending: Iker Cuevas MD [...] + trop. Known CAD with hx of IN and CABG. DM. MARIA VICTORIA.ICM. ??? ASHD [...] was given Lasix 80mg IV x1 in minilab operator. Tolerated procedure well. Review of Systems: [...] Intake/Output Summary (Last 24 hours) at 12/11/2021 0949 Last data filed at 12/11/2021 0508 Gross [...] pulmonary vascular congestion and cardiomegaly. TTE from [facility] 12/08/21 Prior Cardiac Studies: TTE 07/28/2019 SUMMARY: [...] y.o. male with h/o CAD s/p 3vCABG (THMOPSON-LAD, sequential SVG-OM1-D1) 07/07/2017 following late STEMI, ischemic [...] and answered his questions. Iker Cuevas MD [facility] Total time spent on review of records prior to visit, face to face time with patient during visit, documentation, and coordination of care with other clinicians: 25 minutes. . Iker Cuevas MD - 12/10/2021 12:30 PM EDT Images from the original note were not included. Inpatient Cardiology Progress Note Patient Name: Don Fatima Service: MOTOR COACH CHAUFFEUR / PA Responsible Attending: Iker Cuevas MD Reason for continued hospitalization: NSTEMI- s/p R/LHC- PCW 27, occluded SVGs s/p PCI to ostial LCX ADHF and hypoxia- IV diuresis Active Problems: Active Hospital Problems Diagnosis ??? Admitted with 2 days of sob, hypoxemia, and + trop. Known CAD with hx of IN and CABG. DM. MARIA VICTORIA.ICM. ??? ASHD [...] was given Lasix 80mg IV x1 in minilab operator. Tolerated procedure well. Review of Systems: [...] TROPONINT 1.13* 0.92* 0.89* Pertinent Radiographic/Diagnostic Results: R/[facility] 12/10/21 Hemodynamics: Right Heart Pressures [...] pulmonary vascular congestion and cardiomegaly. TTE from [facility] 12/08/21 Prior Cardiac Studies: TTE 07/28/2019 SUMMARY: [...] Discussed with MD Migdalia Peter PA-C Pager #[phone] 12/10/2021 Cardiology Attending Note I have seen [...] updated and given pictures. Iker Cuevas MD [facility] Total time spent on review of records prior to visit, face to face time with patient during visit, documentation, and coordination of care with other clinicians: 35 minutes. Iker Cuevas MD - 12/09/2021 7:28 AM EDT Images from the original note were not included. Inpatient Cardiology Progress Note Patient Name: Don Fatima Service: MOTOR COACH CHAUFFEUR / PA Responsible Attending: Iker Cuevas MD Reason for continued hospitalization: NSTEMI- awaiting R/LHC ADHF and hypoxia- IV diuresis, R/LHC Active Problems: Active Hospital Problems Diagnosis ??? Admitted with 2 days of sob, hypoxemia, and + trop. Known CAD with hx of IN and CABG. DM. MARIA VICTORIA.ICM. ??? ASHD [...] pulmonary vascular congestion and cardiomegaly. TTE from [facility] 12/08/21 Prior Cardiac Studies: TTE 07/28/2019 SUMMARY: [...] Discussed with MD Migdalia Peter PA-C Pager #[phone] 12/09/2021 Cardiology Attending Note I have seen and examined the patient. I agree with the findings above. Developed CHF early this am despite getting more iv lasix last evening. Feeling better now. INR > 2. Lungs still wet at base. Echo at [facility] showed EF 35% with mild mod MR slightly lower than last value here. -vit K 2.5 orally to facilitate correction of INR- this will take 12-24 hours to take effect -furosemide 80 mg iv now -postpone right and left heart cath until tomorrow given INR and ADHF -increase statin to achieve LDL < 70 -CPAP tonight Iker Taverass MD [facility] Total time spent on review [...] + trop. Known CAD with hx of IN and CABG. DM. MARIA VICTORIA.ICM. ??? ASHD [...] prior thyroidectomy in 2012 who presented to [facility] with 1 week progressing breathlessness with patient [...] visit 03/2021 with Liz Poole PA-C. At [facility], respiratory distress with hypoxia 86% on room [...] [facility] MA[facility] OR ??? PRO AMPUTATION FOOT, TRANSMETATARSAL Right 08/09/2017 AMPUTATION, TRANSMETATARSAL (WRVU 12.71) performed by Yonathan Smith MD at [facility] MAIN OR ??? PRO CABG, ARTERIAL, SINGLE N/A 07/07/2017 @CABG, USING ARTERIAL GRAFT;SINGLE ARTERIAL GRAFT (WRVU 33.75) performed by Yuan Retana MD at [facility] MAIN OR ??? PRO CABG, ARTERY-VEIN, TWO N/A 07/07/2017 @CABG, TWO VENOUS GRAFTS & ARTERIAL GRAFT (WRVU 7.93) performed by Yuan Retana MD at [facility] MAIN OR ??? PRO COLONOSCOPY, REMV LESN, SNARE 01/16/2014 COLONOSCOPY, POLYPECTOMY, REMOVAL LESION BY SNARE performed by Nohemi Jaimes MD at [facility] ENDOSCOPY ??? PRO DRESSING CHANGE UNDER ANESTHESIA Right 08/11/2017 (MSURG) DRESSING CHANGE (FOR OTHER THAN IVAN) UNDER ANES. (WRVU 0.86) performed by Lamar Smith MD at [facility] MAIN OR ??? PRO ENDOSCOPY W/VIDEO-ASST VEIN HARVEST, CABG Right 07/07/2017 ENDOSCOPIC HARVEST VEIN(S) FOR CABG (WRVU 0.31) performed by Yuan Retana MD at [facility] MAIN OR ??? PRO THYROIDECTOMY 03/28/2013 THYROIDECTOMY, TOTAL OR COMPLETE performed by Manny Mcknight MD at [facility] MAIN OR Significant Family History: [...] (H) 65 - 199 mg/dL Labs at [facility] 12/08/2021-troponin I 8004 (UN L <60), 12/07- [...] Monitor for ADRs. Trend troponins. Admission EKG. [facility] 12/09; consented. TTE. Telemetry monitoring, [...] code #Diet-carb control; n.p.o. after midnight for [facility] #DVT prophy- heparin infusion #GI prophy- PPI Discussed with MD Morgan Peter PA-C APP2 pager [phone] 12/08/2021 Cardiology Attending Note I have seen [...] is type 1 due to graft or ho-chunk coronary stenosis vs acute injury from CHF. 3. PAF: currrently in NSR. Have replaced warfarin with heparin 4. PAD: stable 5. DM: stable 6. CKD: will monitor and minimize contrast. Pt very appreciative of Dr. Yuan Retana's care in 2018. Will let him know patient is here. Iker Cuevas MD [facility] documented in this encounter Miscellaneous [...] Type: *No Product type* / Secondary Insurance: [employer] [place] Prescription Coverage: Yes This plan was [...] cath without complications. Migdalia Parker PA-C Pager #[phone] 12/10/2021 Initial Assessments - Nick Georges RN [...] COVID test: Lab Results Component Value Date [id number] Not Detected 12/08/2021 Past medical History: Past [...] days) Any patient receiving care at [facility] must abide by [place] law. The hierarchy [...] standard, cane - straight Home Address: [address] [place] [address] [place] [address] Social & Family Supports: All names listed below confirmed with patient as current and correct Extended Emergency Contact Information Primary Emergency Contact: Kisha Fatima Address: [address] [place] [address] [place] [address] [facility] Mobile Relation: Spouse Secondary Emergency Contact: Elba Swenson Address: [place], [place] [id number] [place] [address] Mobile Relation: Child Current Care Provided by: [...] Type: *No Product type* / Secondary Insurance: [facility] Prescription Coverage: Yes Preferred Pharmacy: [facility] [address] - [place], [place] - [address] [address] [place] Status: Patient is a : unable to assess Primary Care Provider: Lovely Vicente MD [phone] Patient/Caregiver Goals of Treatment: Get out of here Potential Needs for Transition of Care: none Agency Referrals: none patient has used [facility] in the past Transportation: no concerns Transportation Anticipated: family or friend will provide Concerns to be Addressed: patient refuses services, discharge planning Assessment: Patient is admitted to [facility] Service pager [phone] for 76 y.o.??male??with h/o??CAD s/p 3vCABG (THOMPSON-LAD, [...] status on current unit. Nick Georges RN numerical control router operator, Office of Care Management Pager: [phone] Brief Op Note - Vitaliy Nobles MD - 12/10/2021 8:31 AM EDT Images from the original note were not included. Former[facility] [place] [address] CORONARY ANGIOGRAM AND PERCUTANEOUS CORONARY INTERVENTION REPORT Patient: Don Fatima : 1945 MR number: [id number] Date of Service: 12/10/2021 Shank Taper: Vitaliy Nobles MD Fellow: [place]o [place] MD [...] andis managed by his PCP. Lives in [place], [place] with his . States that he [...] 5 gm carb ratio for each meal) assisted diabetes care: Medications - Outpatient treatment regimen recommendations pending based on the hospital course. Monitoring - continue BG tid ac & hs Diet - low fat/low carb diet Exercise - weight-bearing exercise 30 min/day, as tolerated Thank you for allowing us to provide care for your patient Desirae Jett APRN Endocrinology Pager [phone] 70 minutes of this 80 minute visit [...] + trop. Known CAD with hx of IN and CABG. DM. MARIA VICTORIA.ICM. ??? ASHD [...] for further details. STEPHANIE Rebolledo 12/08/2021 Pager [phone] documented in this encounter Plan of Treatment Upcoming Encounters Date Type Specialty Care Team Description 05/28/2022 Appointment Cardiology Zulma Dolan MD [facility] [place], [place] [address] (Wo lissa) 05/28/2022 Laboratory Appointment Lab 05/28/2022 Office Visit Cardiology Zulma Dolan MD [facility] [place] [address] Liz Poole PA [facility] [place] [address] 06/10/2022 Office Visit Dermatology Laura Scherer MD [facility] DR [address]JA [facility], [place] [address] (Wo rk) Scheduled Referrals Name [...] [facility] mg/dL [facility] Comment: Supplemental ranges: <140 mg/dL before meals <180 mg/dL all other times of the day Specimen Anatomical Collection Method Collection Time Receive d Time (Source) Location / / Volume Laterality Blood 12/12/2021 7:42 AM 7:42 EDT AM EDT Ifeanyi Trunog MD POINT OF CARE TEST ORDERABLE S Performing Organization Address City/State/[place] [address] (ABNORMAL) Differential, Automated (12/12/2021 4:51 AM EDT) athologist Signature Neutrophils % 75.4 % [facility] Neutr Abs (ANC) 5.95 1.70 - [facility] 6.10 [facility] x10(3)/[facility] LABORATORY Lymphocytes % 12.2 % [facility] Lymphocytes Abs 1.0 0.9 - 3.2 [facility] x10(3)/[facility] LABORATORY Monocytes % 9.5 % [facility] Monocyte Abs 0.8 0.3 - 0.9 [facility] x10(3)/[facility] LABORATORY Eosinophils % 1.8 % [facility] Eosinophils Abs 0.1 0.0 - 0.4 [facility] x10(3)/[facility] LABORATORY Basophils % 0.5 % [facility] Basophils Abs 0.0 0.0 - 0.1 [facility] x10(3)/[facility] LABORATORY Immature Gran % 0.60 % [...] Address City/State/ZIP Code Phon e Number [address] (ABNORMAL) Hemogram (12/12/2021 4:51 AM EDT) Analysis Performed At Patho logist Time Signature WBC 7.9 4.0 - 9.5 [facility] x[facility](3[facility] LABORATORY RBC 4.19 (L) 4.58 - [place] 5.54 [facility] x10(6)/[facility] LABORATORY Hemoglobin 12.1 (L) 13.7 - [place] 16.5 g/dL [facility] Hematocrit 36.7 (L) 40.5 - [facility] 48.5 % [facility] MCV 87.6 82.9 - [facility] 93.1 [facility] LABORATORY MCH 28.9 27.5 - [place] 32.1 pg [facility] LABORATORY MCHC 33.0 32.0 - [place] 35.7 g/dL [facility] Platelets 231 145 - 357 [facility] x10(3)/[facility] LABORATORY RDWSD 47.2 (H) 36.0 - [facility] RYAN 45.0 [facility] LABORATORY RDWCV 14.6 (H) 11.4 - [facility] RYAN 13.8 % [facility] LABORATORY MPV 9.5 7.6 - 12.9 [facility] RYAN [facility] LABORATORY nRBC % Auto 0.0 % [facility] nRBC Abs Auto 0.000 0.000 - [place] 0.000 [facility] x10(3)/[facility] LABORATORY Specimen Anatomical Collection Method Collection Time Receive d Time (Source) Location / / Volume Laterality Blood 12/12/2021 4:51 AM 2 5:06 EDT AM EDT Resulting Agency Comment Spec In Lab Bijan Sun MD HEMATOLOGY ORDERABLES Performing Organization Address City/[facility]/[place] [address] (ABNORMAL) Prothrombin Time (12/12/2021 4:51 AM EDT) athologist Signature PT 14.9 (H) 9.4 - 12.5 [facility] LABORATORY INR 1.3 [facility] [...] Organization Address City/State/[place] [address] (ABNORMAL) BMP w/fasting Glucose (12/12/2021 4:51 AM EDT) athologist Signature Glucose 152 (H) 65 - 99 [facility] Fasting mg/dL [facility] LABORATORY [...] of Diabetes Mellitus, Position Statement from the [place] [employer]. ??Diabete s Care, Volume [...] Address City/State/[place] [address] Magnesium (12/12/2021 4:51 AM EDT) athologist Signature Magnesium 1.02 0.69 - 1.07 [place] mmol/L [facility] LABORATORY Specimen Anatomical Collection Method Collection Time Receive d Time (Source) Location / / Volume Laterality Blood 12/12/2021 4:51 AM 2 5:06 EDT AM EDT Resulting Agency Comment Spec In Lab Iker Cuevas MD CHEMISTRY ORDERABLES Performing Organization Address City/[facility]/ZIP Code Phon e Number [address] POCT Glucose (12/12/2021 3:43 AM EDT) athologist Signature POC Glucose 138 65 - 199 [place] mg/dL [facility] LABORATORY Comment: Supplemental ranges: <140 mg/dL before meals <180 mg/dL all other times of the day Specimen Anatomical Collection Method Collection Time Receive d Time (Source) Location / / Volume Laterality Blood 12/12/2021 3:43 AM 2 3:43 EDT AM EDT Iker Cuevas MD POINT OF CARE TEST ORDERABLE S Performing Organization Address City/State/ZIP Code Phon e Number [address] POCT Glucose (12/11/2021 11:44 PM EDT) athologist Signature POC Glucose 124 65 - 199 [place] mg/dL [facility] Comment: Supplemental ranges: <140 mg/dL before meals <180 mg/dL all other times of the day Specimen Anatomical Collection Method Collection Time Receive d Time (Source) Location / / Volume Laterality Blood 12/11/2021 11:44 12/11/2021 PM EDT 11:44 PM EDT Iker Cuevas MD POINT OF CARE TEST ORDERABLE S Performing Organization Address City/State/ZIP Code Phon e Number [address] (ABNORMAL) POCT Glucose (12/11/2021 8:12 PM EDT) athologist Signature POC Glucose 200 (H) 65 - 199 [place] mg/dL [facility] Comment: Supplemental ranges: <140 mg/dL before meals <180 mg/dL all other times of the day Specimen Anatomical Collection Method Collection Time Receive d Time (Source) Location / / Volume Laterality Blood 12/11/2021 8:12 PM 2 8:12 EDT PM EDT Iker Cuevas MD POINT OF CARE TEST ORDERABLE S Performing Organization Address City/State/[place] [address] (ABNORMAL) POCT Glucose (12/11/2021 6:50 PM EDT) P athologist Signature POC Glucose 245 (H) 65 - 199 [place] mg/dL [facility] LAB[facility] Comment: Supplemental ranges: <140 mg/dL before meals <180 mg/dL all other times of the day Specimen Anatomical Collection Method Collection Time Receive d Time (Source) Location / / Volume Laterality Blood 12/11/2021 6:50 PM 2 6:50 EDT PM EDT Iker Cuevas MD POINT OF CARE TEST ORDERMATTHEW S Performing Organization Address City/State/[place] [address] (ABNORMAL) POCT Glucose (12/11/2021 4:00 PM EDT) P athologist Signature POC Glucose 383 (H) 65 - 199 [facility] RYAN mg/dL [facility] LABOR[facility]ORY Comment: Supplemental ranges: <140 mg/dL before meals <180 mg/dL all other times of the day Specimen Anatomical Collection Method Collection Time Receive d Time (Source) Location / / Volume Laterality Blood 12/11/2021 4:00 PM 2 4:00 EDT PM EDT Iker Cuevas MD POINT OF CARE TEST ORDERABLE S Performing Organization Address City/State/[place] [address] (ABNORMAL) POCT Glucose (12/11/2021 12:01 PM EDT) P athologist Signature POC Glucose 342 (H) 65 - 199 [place] mg/dL [facility] Comment: Supplemental ranges: <140 mg/dL before meals <180 mg/dL all other times of the day Specimen Anatomical Collection Method Collection Time Receive d Time (Source) Location / / Volume Laterality Blood 12/11/2021 12:01 12/11/2021 PM EDT 12:01 PM EDT Iker Cuevas MD POINT OF CARE TEST ORDERABLE S Performing Organization Address City/State/ZIP [place] [address] COVID-19 PCR (12/11/2021 10:13 AM EDT) [facility] Method Time Signature SARS-CoV-2 Not Detected Not Detected [place] RNA [facility] LAB[facility]ORY Comment: This [...] diagnosis of COVID-19 is performed using the [employer] RONNA S-CoV-2 Assay as authorized by the FDA Emergency Use Authorization (EUA). This EUA assay is intended for In-vitro Diagnostic (IVD) use with respiratory sp ecimens such as nasopharyngeal swabs collected from individuals during the ac [place] phase of infection. This assay is performed based on the instructions for use provided by [employer] and additional guidance provided by CDC [...] is infected. As required or requested by [facility], positive specimens may be sent for [...] fact sheets at the following FDA website: https://www.fda.gov/medical-devices/kphispsjcdh-iedfyho-9359-wooae-08-oxsrgxacs- yho-lkftkjutokpqrg-zbfrkkv-devices/onnma-makaqcyntif-ljhz SARS-Cov-2 RNA Source MOTOR COACH CHAUFFEUR Swab [facility] LAB[facility] Specimen (Source) Anatomical Collection Method Collection Time Re ceived Time Location / / Volume Laterality Nasopharyngeal Swab 12/11/2021 10:13 11/23 AM EDT 11:16 AM EDT Comment: Symptoms->Surveillance Resulting Agency Comment Spec In Lab Iker Cuevas MD MICROBIOLOGY - GENERAL ORDER [place] Performing Organization Address City/State/[place] [address] POCT Glucose (12/11/2021 7:34 AM EDT) P athologist Signature POC Glucose 198 65 - 199 [facility] mg/dL [facility] LABORATORY Comment: Supplemental ranges: <140 mg/dL before meals <180 mg/dL all other times of the day Specimen Anatomical Collection Method Collection Time Receive d Time (Source) Location / / Volume Laterality Blood 12/11/2021 7:34 AM 2 7:34 EDT AM EDT Iker Cuevas MD POINT OF CARE TEST ORDERABLE S Performing Organization Address City/State/[place] [address] (ABNORMAL) POCT Glucose (12/11/2021 5:07 AM EDT) P athologist Signature POC Glucose 208 (H) 65 - 199 [facility] mg[facility]dL [facility] LABORATORY Comment: Supplemental ranges: <140 mg/dL before meals <180 mg/dL all other times of the day Specimen Anatomical Collection Method Collection Time Receive d Time (Source) Location / / Volume Laterality Blood 12/11/2021 5:07 AM 2 5:07 EDT AM EDT Iker Cuevas MD POINT OF CARE TEST ORDERABLE S Performing Organization Address City/State/[place] [address] (ABNORMAL) Differential, Automated (12/11/2021 4:28 AM EDT) Patholo gist Method Time Signature Neutrophils % 79.6 % [facility] LABORATORY Neutr Abs (ANC) 7.01 (H) 1.70 - [facility] 6.10 [facility] x10(3)/[facility] L LABORATORY Lymphocytes % 9.1 % [facility] LABORATORY Lymphocytes Abs 0.8 (L) 0.9 - 3.2 [facility] x10(3)/[facility] LABORATORY Monocytes % 9.2 % [facility] LABORATORY Monocyte Abs 0.8 0.3 - 0.9 [facility] x10(3)/[facility] LABORATORY Eosinophils % 1.3 % [facility] LABORATORY Eosinophils Abs 0.1 0.0 - 0.4 [facility] x10(3)/[facility] LABORATORY Basophils % 0.5 % [facility] LABORATORY Basophils Abs 0.0 0.0 - 0.1 [facility] x10(3)/[facility] LABORATORY Immature Gran % 0.30 % [...] x10(3)/[facility] LABORATORY Specimen Anatomical Collection Method Collection Time Receive d Time (Source) Location / / Volume Laterality Blood 12/11/2021 4:28 AM 4:37 EDT AM EDT Resulting Agency Comment Spec In Lab Bijan Sun MD HEMATOLOGY ORDERABLES Performing Organization Address City/State/ZIP Code Phon e Number [place] [id number] (ABNORMAL) Hemogram (12/11/2021 4:28 AM EDT) Analysis Performed At Patho logist Time Signature WBC 8.8 4.0 - 9.5 [facility] x10(3)/[facility] LABORATORY RBC 4.15 (L) 4.58 - [place] RYAN 5.54 [facility] x10(6)/[facility] LABORATORY Hemoglobin 11.9 (L) 13.7 - [facility] 16.5 g/dL [facility] LABORATORY Hematocrit 36.9 (L) 40.5 - [facility] RYAN 48.5 % [facility] LABORATORY MCV 88.9 82.9 - [facility] RYAN 93.1 [facility] LABORATORY MCH 28.7 27.5 - [place] R[place] 32.1 pg [facility] LABORATORY MCHC 32.2 32.0 - [facility] 35.7 g/dL [facility] LABORATORY Platelets 211 145 - 357 [facility] x10(3)/[facility] LABORATORY RDWSD 48.3 (H) 36.0 - [facility] RYAN 45.0 [facility] LABORATORY RDWCV 14.8 (H) 11.4 - [facility] RYAN 13.8 % [facility] LABORATORY MPV 9.6 7.6 - 12.9 [facility] LABORATORY nRBC % Auto 0.0 % [facility] LABORATORY nRBC Abs Auto 0.000 0.000 - [facility] 0.000 [facility] x10(3)/[facility] LABORATORY Specimen Anatomical Collection Method Collection Time Receive d Time (Source) Location / / Volume Laterality Blood 12/11/2021 4:28 AM 2 4:37 EDT AM EDT Resulting Agency Comment Spec In Lab Bijan Sun MD HEMATOLOGY ORDERABLES Performing Organization Address City/[facility]/ZIP [facility] [place] [address] (ABNORMAL) Prothrombin Time (12/11/2021 4:28 AM EDT) P athologist Signature PT 17.7 (H) 9.4 - 12.5 [facility] LABORATORY INR 1.6 [facility] LABORATORY Comment: An INR [...] Address City/[facility]/[place] [address] (ABNORMAL) BMP w/fasting Glucose (12/11/2021 4:28 AM EDT) P athologist Signature Glucose 207 (H) 65 - 99 [facility] Fasting mg/dL [facility] LABORATORY [...] of Diabetes Mellitus, Position Statement from the [place]. ??Diabete s Care, Volume [...] Estimated GFR 48 (L) >=60 mL/min/1.73 m?? [facility] [...] Address City/[facility]/[place] [address] Magnesium (12/11/2021 4:28 AM EDT) athologist Signature Magnesium 1.04 0.69 - 1.07 [facility] mmol/L [facility] LABORATORY Specimen Anatomical Collection Method Collection Time Receive d Time (Source) Location / / Volume Laterality Blood 12/11/2021 4:28 AM 2 4:37 EDT AM EDT Resulting Agency Comment Spec In Lab Iker Cuevas MD CHEMISTRY ORDERABLES Performing Organization Address City/[facility]/ZIP Code Phon e Number [address] POCT Glucose (12/11/2021 3:58 AM EDT) athologist Signature POC Glucose 189 65 - 199 [place] mg/dL [facility] LABORATORY Comment: Supplemental ranges: <140 mg/dL before meals <180 mg/dL all other times of the day Specimen Anatomical Collection Method Collection Time Receive d Time (Source) Location / / Volume Laterality Blood 12/11/2021 3:58 AM 2 3:58 EDT AM EDT Iker Cuevas MD POINT OF CARE TEST ORDERABLE S Performing Organization Address City/[facility]/[place] [address] (ABNORMAL) POCT Glucose (12/10/2021 11:45 PM EDT) athologist Signature POC Glucose 205 (H) 65 - 199 [facility] mg/dL [facility] LABORATORY Comment: Supplemental ranges: <140 mg/dL before meals <180 mg/dL all other times of the day Specimen Anatomical Collection Method Collection Time Receive d Time (Source) Location / / Volume Laterality Blood 12/10/2021 11:45 12/10/2021 PM EDT 11:45 PM EDT Iker Cuevas MD POINT OF CARE TEST ORDERABLE S Performing Organization Address City/[facility]/[place] [address] (ABNORMAL) POCT Glucose (12/10/2021 7:54 PM EDT) athologist Signature POC Glucose 225 (H) 65 - 199 [facility]/dL [facility] LABORATORY Comment: Supplemental ranges: <140 mg/dL before meals <180 mg/dL all other times of the day Specimen Anatomical Collection Method Collection Time Receive d Time (Source) Location / / Volume Laterality Blood 12/10/2021 7:54 PM 2 7:54 EDT PM EDT Iker Cuevas MD POINT OF CARE TEST ORDERABLE S Performing Organization Address City/[facility]/[place] [address] Potassium (12/10/2021 7:46 PM EDT) athologist [facility] Potassium 4.2 3.5 - 5.0 [facility] mmol/L [facility] LABORATORY Comment: [...] CHEMISTRY ORDERABLES Performing Organization Address City/[facility]/ZIP [facility] [place] [address] (ABNORMAL) Basic Metabolic Panel (non-fasting) (12/10/2021 6:12 PM EDT) athologist Signature Glucose Lvl 246 (H) 65 - 199 [facility] mg/dL [facility] LABORATORY Comment: [...] 107 mmol/L [facility] LABORATORY CO2 22 22 - 31 mmol/L [facility] LABORATORY Anion Gap 16 (H) [...] Address City/State/ZIP Code Phon e Number [address] POCT Glucose (12/10/2021 4:59 PM EDT) P athologist Signature POC Glucose 158 65 - 199 [facility] mg/dL [facility] LABORATORY Comment: Supplemental ranges: <140 mg/dL before meals <180 mg/dL all other times of the day Specimen Anatomical Collection Method Collection Time Receive d Time (Source) Location / / Volume Laterality Blood 12/10/2021 4:59 PM 2 4:59 EDT PM EDT Iker Cuevas MD POINT OF CARE TEST ORDERABLE S Performing Organization Address City/State/[place] [address] (ABNORMAL) POCT Glucose (12/10/2021 12:43 PM EDT) P athologist Signature POC Glucose 241 (H) 65 - 199 [facility] mg/dL [facility] LABORATORY Comment: Supplemental ranges: <140 mg/dL before meals <180 mg/dL all other times of the day Specimen Anatomical Collection Method Collection Time Receive d Time (Source) Location / / Volume Laterality Blood 12/10/2021 12:43 12/10/2021 PM EDT 12:43 PM EDT Iker Cuevas MD POINT OF CARE TEST ORDERABLE S Performing Organization Address City/State/[place] [address] EKG 12 Lead (12/10/2021 11:17 AM EDT) Component Value Ref Range Test Analysis Performed Pathologis t Method Time At Signature Ventricular rate 62 BPM MUSE SYSTEM Atrial Rate 62 BPM MUSE SYSTEM P-R Interval 142 ms MUSE SYSTEM QRS Duration 100 ms MUSE SYSTEM Q-T Interval 434 ms MUSE SYSTEM QTC Calculated 440 ms MUSE SYSTEM (Bezet) Calculated P [place] 34 degrees MUSE SYSTEM Calculated R [place] -39 degrees MUSE SYSTEM Calculated T [place] 92 degrees MUSE SYSTEM INTERPRETATION Normal sinus rhythm MUSE SYSTEM Left axis deviation Minimal voltage criteria for LVH, may be normal variant ( Sylvester product ) Cannot rule out Inferior infarct [...] Laterality Volume Narrative 12/10/2021 12:04 PM EDT ?[facility] ? Cardiac Cathete rization/Intervention Report ? Patient Name: Don FatimaMadiha ? Procedure Date: 12/10/2021 ? A #: [id number] ? Primary Physician: Nobles, Vitaliy P ? Case #: [id number] ? File Name: [id number] ? Catheterization Order Number: [id number] ? [facility] ? Final Report [place], [place] ? Patient Name: ? Don E. Stewa rt ? ID#: ?[id number] ? : ?1945 ? Procedure Date: ? [...] procedure was Urgent. The indication for ?the minilab operator visit is ACS great er than [...] ?3.75 guiding catheter and a 3.5 Fr [facility] [place] 20 Mhz using Manual ?pullback. ??Imaging was [...] ?3.75 guiding catheter and a 3.5 Fr [facility] [place] 20 Mhz using Manual ?pullback. ??Imaging was [...] ?modification of this regimen. C [facility] Interventional Cardiology for ?questions. ?The 1 [...] Procedure Note Vitaliy Nobles MD - 01/14/2022 [facility] Cardiac Catheterization/Intervention Re port Patient Name: Don Fatima Procedure Date: 12/10/2021 A #: [id number] Primary Physician: Vitaliy Nobles Case #: [id number] File Name: [id number] Catheterization Order Number: [id number] [facility] Final Report [place], [place] Patient Name: Don Fatima ID#: [...] e was Urgent. The indication for the minilab operator visit is ACS greater than 24 [...] and a 3.5 Fr [facility] [employer] [place] 20 Mhz using Manual pullback. Imaging was [...] and a 3.5 Fr [facility] [place] 20 Mhz using Manual pullback. Imaging was [...] require modification of this regimen. Consult D [facility] – [...] 262 (H) 65 - 199 [facility] mg/dL [facility] LABORATORY Comment: Supplemental ranges: <140 mg/dL before meals <180 mg/dL all other times of the day Specimen Anatomical Collection Method Collection Time Receive d Time (Source) Location / / Volume Laterality Blood 12/10/2021 10:30 12/10/2021 AM EDT 10:30 AM EDT Iker Cuevas MD POINT OF CARE TEST ORDERABLE S Performing Organization Address City/State/[place] [address] (ABNORMAL) POCT Glucose (12/10/2021 9:48 AM EDT) athologist Signature POC Glucose 279 (H) 65 - 199 [place] mg/dL [facility] LABORATORY Comment: Supplemental ranges: <140 mg/dL before meals <180 mg/dL all other times of the day Specimen Anatomical Collection Method Collection Time Receive d Time (Source) Location / / Volume Laterality Blood 12/10/2021 9:48 AM 2 9:48 EDT AM EDT Iker Cuevas MD POINT OF CARE TEST ORDERABLE S Performing Organization Address City/[facility]/[place] [address] (ABNORMAL) POCT Glucose (12/10/2021 9:07 AM EDT) P athologist Signature POC Glucose 268 (H) 65 - 199 [place] mg/dL [facility] LABORATORY Comment: Supplemental ranges: <140 mg/dL before meals <180 mg/dL all other times of the day Specimen Anatomical Collection Method Collection Time Receive d Time (Source) Location / / Volume Laterality Blood 12/10/2021 9:07 AM 2 9:07 EDT AM EDT Iker Cuevas MD POINT OF CARE TEST ORDERABLE S Performing Organization Address City/State/[place] [address] (ABNORMAL) Point of Care Blood Gas Historical (12/10/2021 9:04 AM EDT) [facility] Method Time Signature POC pH 7.40 7.35 - [place]YAN 7.45 [facility] LABORATORY POC PCO2 40 35 - 45 [facility] LABORATORY POC PO2 63 (L) 85 - 104 [facility] LABORATORY POC Base Excess 0.0 -3.0 - 3.0 [facility] K mmol/L [facility] LABORATORY POC HCO3 24.8 20.0 - [facility] 26.0 [facility] POC Sodium 143 135 - 145 [facility] mmol/L [facility] LABORATORY POC Potassium 3.7 3.5 - 5.0 [facility] mmol/L [facility] LABORATORY POC Ionized Ca 1.07 (L) 1.15 - [facility] 1.33 [facility] POC Hematocrit 30.0 (L) 40.0 - [facility] 51.0 % [facility] POC Calc Hgb 10.2 (L) 13.7 - [facility] 17.5 g/dL [facility] LABORATORY Comment: The calculation of hemoglobin f rom hematocrit assumes a normal MCHC. POC Bgas Loc CC LAB [facility] LABORATORY Specimen Anatomical Collection Method Collection Time Receive d Time (Source) Location / / Volume Laterality Blood 12/10/2021 9:04 AM 2 EDT 12:00 PM EDT Ifeanyi Truong MD CHEMISTRY ORDERABLES Performing Organization Address City/State/[place] [address] (ABNORMAL) POCT Glucose (12/10/2021 7:19 AM EDT) P athologist Signature POC Glucose 274 (H) 65 - 199 [facility] mg/dL [facility] LABORATORY Comment: Supplemental ranges: <140 mg/dL before meals <180 mg/dL all other times of the day Specimen Anatomical Collection Method Collection Time Receive d Time (Source) Location / / Volume Laterality Blood 12/10/2021 7:19 AM 2 7:19 EDT AM EDT Iker Cuevas MD POINT OF CARE TEST ORDERABLE S Performing Organization Address City/State/[place] [address] Heparin (unfractionated) Level (12/10/2021 4:25 AM EDT) P athologist Signature Heparin UFH 0.69 IU/mL [facility] LABORATORY Comment: Heparin (anti-Xa) levels should [...] Organization Address City/State/ZIP Code Phon e Number [place] [id number] Drive (ABNORMAL) Differential, Automated (12/10/2021 4:25 AM EDT) Patholo gist Method Time Signature Neutrophils % 79.8 % [facility] LABORATORY Neutr Abs (ANC) 7.47 (H) 1.70 - [facility] 6.10 [facility] x10(3)/[facility] L LABORATORY Lymphocytes % 10.6 % [facility] LABORATORY Lymphocytes Abs 1.0 0.9 - 3.2 [facility] x10(3)/[facility] LABORATORY Monocytes % 8.4 % [facility] LABORATORY Monocyte Abs 0.8 0.3 - 0.9 [facility] x10(3)/[facility] LABORATORY Eosinophils % 0.6 % [facility] LABORATORY Eosinophils Abs 0.1 0.0 - 0.4 [facility] x10(3)/[facility] LABORATORY Basophils % 0.2 % [facility] LABORATORY Basophils Abs 0.0 0.0 - 0.1 [facility] x10(3)/[facility] LABORATORY Immature Gran [...] Melisa Gran Abs 0.04 0.00 - 0.04 x10(3)/[facility] LABORATORY Specimen Anatomical Collection Method Collection Time Receive d Time (Source) Location / / Volume Laterality Blood 12/10/2021 4:25 AM 4:34 EDT AM EDT Resulting Agency Comment Spec In Lab Morgan BROWN HEMATOLOGY ORDERABLES Performing Organization Address City/State/[place] [address] (ABNORMAL) Hemogram (12/10/2021 4:25 AM EDT) Analysis Performed At Patho logist Time Signature WBC 9.4 4.0 - 9.5 [facility] x10(3)/[facility] LABORATORY RBC 3.81 (L) 4.58 - [facility] 5.54 [facility] x10(6)/[facility] LABORATORY Hemoglobin 11.1 (L) 13.7 - [facility] 16.5 g/dL [facility] LABORATORY Hematocrit 34.0 (L) 40.5 - [facility] 48.5 % [facility] LABORATORY MCV 89.2 82.9 - [facility] 93.1 [facility] LABORATORY MCH 29.1 27.5 - [facility] 32.1 pg [facility] LABORATORY MCHC 32.6 32.0 - [facility] 35.7 g/dL [facility] LABORATORY Platelets 183 145 - 357 [facility] x10(3)/[facility] LABORATORY RDWSD 49.9 (H) 36.0 - [facility] RYAN 45.0 [facility] LABORATORY RDWCV 15.2 (H) 11.4 - [facility] 13.8 % [facility] LABORATORY MPV 9.8 7.6 - 12.9 [facility] LABORATORY nRBC % Auto 0.0 % [facility] LABORATORY nRBC Abs Auto 0.000 0.000 - [place] DAVIS 0.000 [facility] x10(3)/[facility] LABORATORY Specimen Anatomical Collection Method Collection Time Receive d Time (Source) Location / / Volume Laterality Blood 12/10/2021 4:25 AM 2 4:34 EDT AM EDT Resulting Agency Comment Spec In Lab Morgan BROWN HEMATOLOGY ORDERABLES Performing Organization Address City/[facility]/ZIP Code Phon e Number [address] (ABNORMAL) Prothrombin Time (12/10/2021 4:25 AM EDT) P athologist Signature PT 20.0 (H) 9.4 - 12.5 [facility] LABORATORY INR 1.7 [facility] LABORATORY Comment: An INR [...] Address City/[facility]/[place] [address] (ABNORMAL) BMP w/fasting Glucose (12/10/2021 4:25 AM EDT) P athologist Signature Glucose 210 (H) 65 - 99 [facility] Fasting mg/dL [facility] LABORATORY [...] of Diabetes Mellitus, Position Statement from the [place]. ??Diabete s Care, Volume [...] Estimated GFR 44 (L) >=60 mL/min/1.73 m?? [facility] [...] Organization Address City/State/[place] [address] Magnesium (12/10/2021 4:25 AM EDT) athologist Signature Magnesium 0.95 0.69 - 1.07 [place] RYAN mmol/L [facility] LABORATORY Specimen Anatomical Collection Method Collection Time Receive d Time (Source) Location / / Volume Laterality Blood 12/10/2021 4:25 AM 2 4:34 EDT AM EDT Resulting Agency Comment Spec In Lab Iker Cuevas MD CHEMISTRY ORDERABLES Performing Organization Address City/[facility]/[place] [address] POCT Glucose (12/10/2021 1:58 AM EDT) athologist Signature POC Glucose 164 65 - 199 [place] RYAN mg/dL [facility] LABORATORY Comment: Supplemental ranges: <140 mg/dL before meals <180 mg/dL all other times of the day Specimen Anatomical Collection Method Collection Time Receive d Time (Source) Location / / Volume Laterality Blood 12/10/2021 1:58 AM 2 1:58 EDT AM EDT Iker Cuevas MD POINT OF CARE TEST ORDERABLE S Performing Organization Address City/[facility]/ZIP Code Phon e Number [address] (ABNORMAL) POCT Glucose (12/09/2021 9:02 PM EDT) athologist Signature POC Glucose 313 (H) 65 - 199 [place] RYAN mg/dL [facility] LABORATORY Comment: Supplemental ranges: <140 mg/dL before meals <180 mg/dL all other times of the day Specimen Anatomical Collection Method Collection Time Receive d Time (Source) Location / / Volume Laterality Blood 12/09/2021 9:02 PM 2 9:02 EDT PM EDT Iker Cuevas MD POINT OF CARE TEST ORDERABLE S Performing Organization Address City/[facility]/[place] [address] Heparin (unfractionated) Level (12/09/2021 7:30 PM EDT) athologist Signature Heparin UFH 0.48 IU/mL [facility] LABORATORY Comment: Heparin (anti-Xa) levels should [...] Address City/State/[place] [address] (ABNORMAL) Basic Metabolic Panel (non-fasting) (12/09/2021 7:30 PM EDT) athologist Signature Glucose Lvl 372 (H) 65 - 199 [facility] mg/dL [facility] LABORATORY Comment: [...] 107 mmol/L [facility] LABORATORY CO2 22 22 - 31 mmol/L [facility] LABORATORY Anion Gap 14 5 - 15 mmol/L [facility] LABORATORY Calcium 8.1 (L) 8.5 - 10.5 mg/dL [facility] LABORATORY Estimated GFR 37 (L) >=60 mL/min/1.73 m?? [facility] [...] Address City/State/[place] [address] (ABNORMAL) POCT Glucose (12/09/2021 6:34 PM EDT) athologist Signature POC Glucose 408 (H) 65 - 199 [place]BAR[place] RYAN mg/dL [facility] LABORATORY Comment: Supplemental ranges: <140 mg/dL before meals <180 mg/dL all other times of the day Specimen Anatomical Collection Method Collection Time Receive d Time (Source) Location / / Volume Laterality Blood 12/09/2021 6:34 PM 2 6:34 EDT PM EDT Iker Cuevas MD POINT OF CARE TEST ORDERABLE S Performing Organization Address City/State/[place] [address] (ABNORMAL) POCT Glucose (12/09/2021 6:32 PM EDT) athologist Signature POC Glucose 356 (H) 65 - 199 [facility] mg/dL [facility] LABORATORY Comment: Supplemental ranges: <140 mg/dL before meals <180 mg/dL all other times of the day Specimen Anatomical Collection Method Collection Time Receive d Time (Source) Location / / Volume Laterality Blood 12/09/2021 6:32 PM 2 6:32 EDT PM EDT Iker Cuevas MD POINT OF CARE TEST ORDERABLE S Performing Organization Address City/[facility]/[place] [address] (ABNORMAL) POCT Glucose (12/09/2021 4:19 PM EDT) athologist Signature POC Glucose 347 (H) 65 - 199 [facility] mg/dL [facility] LABORATORY Comment: Supplemental ranges: <140 mg/dL before meals <180 mg/dL all other times of the day Specimen Anatomical Collection Method Collection Time Receive d Time (Source) Location / / Volume Laterality Blood 12/09/2021 4:19 PM 2 4:19 EDT PM EDT Iker Cuevas MD POINT OF CARE TEST ORDERABLE S Performing Organization Address City/State/[place] [address] Heparin (unfractionated) Level (12/09/2021 1:29 PM EDT) athologist Signature Heparin UFH 0.42 IU/mL [facility] LABORATORY Comment: Heparin (anti-Xa) levels should [...] Organization Address City/State/[place] [address] (ABNORMAL) POCT Glucose (12/09/2021 12:02 PM EDT) athologist Signature POC Glucose 235 (H) 65 - 199 [facility] mg/dL [facility] LABORATORY Comment: Supplemental ranges: <140 mg/dL before meals <180 mg/dL all other times of the day Specimen Anatomical Collection Method Collection Time Receive d Time (Source) Location / / Volume Laterality Blood 12/09/2021 12:02 12/09/2021 PM EDT 12:02 PM EDT Iker Cuevas MD POINT OF CARE TEST ORDERABLE S Performing Organization Address City/State/[place] [address] (ABNORMAL) POCT Glucose (12/09/2021 9:44 AM EDT) athologist Signature POC Glucose 214 (H) 65 - 199 [facility] RYAN mg/dL [facility] LABORATORY Comment: Supplemental ranges: <140 mg/dL before meals <180 mg/dL all other times of the day Specimen Anatomical Collection Method Collection Time Receive d Time (Source) Location / / Volume Laterality Blood 12/09/2021 9:44 AM 2 9:44 EDT AM EDT Iker Cuevas MD POINT OF CARE TEST ORDERABLE S Performing Organization Address City/[facility]/[place] [address] EKG 12 Lead (12/09/2021 7:57 AM EDT) Component Value Ref Range Test Analysis Performed Pathologis t Method Time At Signature Ventricular rate 101 BPM MUSE SYSTEM Atrial Rate 101 BPM MUSE SYSTEM P-R Interval 150 ms MUSE SYSTEM QRS Duration 112 ms MUSE SYSTEM Q-T Interval 364 ms MUSE SYSTEM QTC Calculated 471 ms MUSE SYSTEM (Bezet) Calculated P [place] 59 degrees MUSE SYSTEM Calculated R [place] -42 degrees MUSE SYSTEM Calculated T [place] 102 degrees MUSE SYSTEM INTERPRETATION Sinus tachycardia Occasional Premature ventricular com plexes MUSE SYSTEM Left axis deviation 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) Abnormal ECG When compared with ECG of 08-DEC-2021 16:40, Premature ventricular complexes are now Present Confirmed by MD Fernandez Danette ([id number]) on 12/10/2021 4:55:06 PM Specimen Anatomical Collection Method Collection Time Receive d Time (Source) Location / / Volume Laterality 12/09/2021 7:57 AM 2 4:55 EDT PM EDT Iker Cuevas MD ECG ORDERABLES Performing Organization Address City/State/ZIP Code Phon e Number MUSE SYSTEM (ABNORMAL) POCT Glucose (12/09/2021 7:28 AM EDT) P athologist Signature POC Glucose 263 (H) 65 - 199 [facility] mg/dL [facility] LABORATORY Comment: Supplemental ranges: <140 mg/dL before meals <180 mg/dL all other times of the day Specimen Anatomical Collection Method Collection Time Receive d Time (Source) Location / / Volume Laterality Blood 12/09/2021 7:28 AM 2 7:28 EDT AM EDT Iker Cuevas MD POINT OF CARE TEST ORDERABLE S Performing Organization Address City/State/ZIP Code Phon e Number [place] [id number] (ABNORMAL) Hemoglobin A1c (12/09/2021 [...] Mellitus, Diabetes Care 2013; 36: Suppl. 1, H27-63 Est Avg Gluc See note mg/dL [place] [...] into estimated average glucose values. ??Diabetes Care 2008:31(8):6948-5190. Specimen Anatomical Collection Method Collection Time Receive d Time (Source) Location / / Volume Laterality Blood Venous Draw / 12/09/2021 6:18 AM 12/10/19 22 Unknown EDT 12:24 PM EDT Resulting Agency Comment Spec In Lab Migdalia BROWN CHEMISTRY ORDERABLES Performing Organization Address [facility] [place] [address] (ABNORMAL) Prothrombin Time (12/09/2021 6:18 AM EDT) athologist Signature PT 26.6 (H) 9.4 - 12.5 [facility] LABORATORY INR 2.3 [facility] LABORATORY Comment: An INR [...] Migdalia BROWN HEMATOLOGY ORDERABLES Performing Organization Address [facility] [place] [address] Heparin (unfractionated) Level (12/09/2021 6:18 AM EDT) P athologist Signature Heparin UFH 0.24 IU/mL [facility] LABORATORY Comment: Heparin (anti-Xa) levels should [...] Address City/State/[place] [address] (ABNORMAL) Differential, Automated (12/09/2021 6:18 AM EDT) [facility] Method Time Signature Neutrophils % 91.5 % [facility] LABORATORY Neutr Abs (ANC) 15.78 (H) 1.70 - [facility] 6.10 [facility] x10(3)/[facility] LABORATORY Lymphocytes % 2.9 % [facility] LABORATORY Lymphocytes Abs 0.5 (L) 0.9 - 3.2 [facility] x10(3)/[facility] LABORATORY Monocytes % 4.9 % [facility] LABORATORY Monocyte Abs 0.8 0.3 - 0.9 [facility] x10(3)/[facility] LABORATORY Eosinophils % 0.0 % [facility] LABORATORY Eosinophils Abs 0.0 0.0 - 0.4 [facility] x10(3)/[facility] LABORATORY Basophils % 0.2 % [facility] LABORATORY Basophils Abs 0.0 0.0 - 0.1 [facility] x10(3)/[facility] LABORATORY Immature Gran % 0.50 % [...] Address City/State/[place] [address] (ABNORMAL) Hemogram (12/09/2021 6:18 AM EDT) Analysis Performed At Patho logist Time Signature WBC 17.2 (H) 4.0 - 9.5 [facility] x10(3)/[facility] LABORATORY RBC 4.32 (L) 4.58 - [facility] 5.54 [facility] x10(6)/[facility] LABORATORY Hemoglobin 12.6 (L) 13.7 - [facility] 16.5 g/dL [facility] LABORATORY Hematocrit 38.9 (L) 40.5 - [facility] 48.5 % [facility] LABORATORY MCV 90.0 82.9 - [facility] 93.1 [facility] LABORATORY MCH 29.2 27.5 - [facility] 32.1 pg [facility] LABORATORY MCHC 32.4 32.0 - [facility] 35.7 g/dL [facility] LABORATORY Platelets 193 145 - 357 [facility] x10(3)/[facility] LABORATORY RDWSD 50.4 (H) 36.0 - [facility] RYAN 45.0 [facility] LABORATORY RDWCV 15.2 (H) 11.4 - [facility] 13.8 % [facility] LABORATORY MPV 9.5 7.6 - 12.9 [facility] LABORATORY nRBC % Auto 0.0 % [facility] LABORATORY nRBC Abs Auto 0.000 0.000 - [facility] 0.000 [facility] x10(3)/[facility] LABORATORY Specimen Anatomical Collection Method Collection Time Receive d Time (Source) Location / / Volume Laterality Blood 12/09/2021 6:18 AM 6:33 EDT AM EDT Resulting Agency Comment Spec In Lab Morgan BROWN HEMATOLOGY ORDERABLES Performing Organization Address City/State/[place] [address] Lipid Panel (Reflex Direct LDL) (12/09/2021 6:18 AM EDT) athologist Signature Chol, Total 105 mg/dL [facility] LABORATORY Comment: Lower Risk: <200 mg/dL Average Risk: 200-239 mg/dL Higher Risk: >go=834 mg/dL Triglycerides 133 mg/dL [facility] LABORATORY Comment: Average Risk/Lower Risk: <150 mg/dL Borderline High Risk: 150-199 mg/dL High Risk: 200-499 mg/dL Very High Risk: >aw=696 mg/dL HDL 42 mg/dL [facility] LABORATORY Comment: Males: ?? Higher Risk: <40 mg/dL Females: ?? Higher Risk: <50 mg/dL LDL Cholesterol 36 mg/dL [facility] LABORATORY Comment: Lowest Risk: <100 mg/dL Lower Risk: 100-129 mg/dL Borderline High Risk: 130-159 mg/dL High Risk: 160-189 mg/dL Very High Risk: >gc=784 mg/dL Chol/HDL Ratio 2.5 ratio [facility] LABORATORY Lipid Interpretation See Note [facility] LABORATORY Comment: Lipid management should be guided by a p atient? s ASCVD risk, goals and preferences. ACC/AHA Guidelines recommend high intens ity statin if clinical ASCVD or LDL greater than or equal to 190 mg/dL. http://tinyurl.com/EOQ-CYM-Splxvhvjy Adults aged 40-75 with LDL 70-189 mg/dL should have their 10 year ASCVD risk estimated with the ACC/AHA ASCVD risk es timator http://tools.acc.org/VNKWZ-Ehqr-Bqssqsjn r/ Statin should be discussed if risk [...] Address City/[facility]/ZIP Code Phon e Number [address] TSH (12/09/2021 6:18 AM EDT) P athologist Signature TSH 1.60 0.27 - 4.20 [employer] mcIU/mL [facility] LABORATORY Comment: Reference Interval (mcIU/mL): Females: ??First Trimester: 0.23-3.88 ??Second Trimester: 0.22-3.90 ??Third Trimester: 0.44-4.66 Specimen Anatomical Collection Method Collection Time Receive d Time (Source) Location / / Volume Laterality Blood 12/09/2021 6:18 AM 2 6:33 EDT AM EDT Resulting Agency Comment Spec In Lab Iker Cuevas MD CHEMISTRY ORDERABLES Performing Organization Address City/[facility]/[place] [address] Hepatic Function Panel (12/09/2021 6:18 AM EDT) P athologist Signature Total Protein 7.3 6.1 - 8.0 [facility] RYAN g/dL [facility] LABORATORY Albumin 4.2 3.2 - 5.2 [facility] RYAN g/dL [facility] LABORATORY AST 25 0 - 39 [facility] RYAN unit/L [facility] LABORATORY ALT 15 0 - 55 [facility] RYAN unit/L [facility] LABORATORY Alk Phos 75 40 - 130 BARBAR[facility] RYAN unit/L [facility] LABORATORY Total 1.1 0.2 - 1.3 [facility] Bilirubin mg/dL [facility] LABORATORY Bili, Direct 0.2 0.0 - 0.3 [facility] mg/dL [facility] LABORATORY Specimen Anatomical Collection Method Collection Time Receive d Time (Source) Location / / Volume Laterality Blood 12/09/2021 6:18 AM 6:33 EDT AM EDT Resulting Agency Comment Spec In Lab Iker Cuevas MD CHEMISTRY ORDERABLES Performing Organization Address City/State/[place] [address] (ABNORMAL) BMP w/fasting Glucose (12/09/2021 6:18 AM EDT) athologist Signature Glucose 235 (H) 65 - 99 [facility] Fasting mg/dL [facility] LABORATORY [...] of Diabetes Mellitus, Position Statement from the [place]. ??Diabete s Care, Volume [...] Estimated GFR 52 (L) >=60 mL/min/1.73 m?? [facility] [...] Address City/[facility]/ZIP Code Phon e Number [address] Magnesium (12/09/2021 6:18 AM EDT) P athologist Signature Magnesium 0.81 0.69 - 1.07 [facility] mmol/L [facility] LABORATORY Specimen Anatomical Collection Method Collection Time Receive d Time (Source) Location / / Volume Laterality Blood 12/09/2021 6:18 AM 2 6:33 EDT AM EDT Resulting Agency Comment Spec In Lab Iker Cuevas MD CHEMISTRY ORDERABLES Performing Organization Address City/[facility]/ZIP Code Phon e Number [address] (ABNORMAL) Troponin (12/09/2021 6:18 AM EDT) P athologist Signature Troponin-T 1.13 (H) 0.00 - [facility] DAVIS 0.00 ng/mL [facility] LABORATORY [...] additional sample may be indicated. Reference: Third [place] Definition of Myocardial Infarction. Journal of the [place] 2012;60:1581-98 Specimen Anatomical Collection Method Collection Time Receive d Time (Source) Location / / Volume Laterality Blood 12/09/2021 6:18 AM 6:33 EDT AM EDT Resulting Agency Comment Spec In Lab Iker Cuevas MD CHEMISTRY ORDERABLES Performing Organization Address City/State/ZIP Code Phon e [place] [address] XR Chest One View [...] have questions please contact the health manager urgent care that requested your imaging first. ? [...] have questions please contact the health manager urgent care that requested your imaging first. Amber Sanches MD IMG DX ORDERABLES (ABNORMAL) BLOOD GAS 2 ARTERIAL (12/09/2021 5:14 AM EDT) Analysis Performed At Patho logist Time Signature pH Art 7.43 7.35 - [facility] 7.45 [facility] LABORATORY pCO2 Art 36 35 - 45 [facility] mmHg [facility] LABORATORY pO2 Art 67 (L) 85 - 104 [facility] LABORATORY HCO3 Art 23.4 20.0 - [facility] 26.0 [facility] mmol/[facility] LABORATORY BE Art -0.9 -3.0 - 3.0 [facility] mmol/L [facility] LABORATORY Hgb Blood Gas 13.2 (L) 13.7 - [facility] 16.5 g/dL [facility] O2HB Art 91.3 (L) 94.0 - [facility] 97.0 % [facility] LABORATORY [...] MEDICAL CENTER LABORATORY PF Ratio Art 191 [facility] LABORATORY Specimen Anatomical Collection Method Collection Time Receive d Time (Source) Location / / Volume Laterality Blood 12/09/2021 5:14 AM 2 5:14 EDT AM EDT Iker Cuevas MD CHEMISTRY ORDERABLES Performing Organization Address City/[facility] [place] [address] POCT Glucose (12/09/2021 4:46 AM EDT) P athologist Signature POC Glucose 198 65 - 199 [facility] mg/dL [facility] LABORATORY Comment: Supplemental ranges: <140 mg/dL before meals <180 mg/dL all other times of the day Specimen Anatomical Collection Method Collection Time Receive d Time (Source) Location / / Volume Laterality Blood 12/09/2021 4:46 AM 2 4:46 EDT AM EDT Iker Cuevas MD POINT OF CARE TEST ORDERABLE S Performing Organization Address City/[facility]/[place] [address] (ABNORMAL) POCT Glucose (12/09/2021 3:01 AM EDT) P athologist Signature POC Glucose 225 (H) 65 - 199 [facility] mg/dL [facility] LABORATORY Comment: Supplemental ranges: <140 mg/dL before meals <180 mg/dL all other times of the day Specimen Anatomical Collection Method Collection Time Receive d Time (Source) Location / / Volume Laterality Blood 12/09/2021 3:01 AM 2 3:01 EDT AM EDT Iker Cuevas MD POINT OF CARE TEST ORDERABLE S Performing Organization Address City/State/[place] [address] (ABNORMAL) POCT Glucose (12/08/2021 10:55 PM EDT) athologist Signature POC Glucose 327 (H) 65 - 199 [facility] mg/dL [facility] LABORATORY Comment: Supplemental ranges: <140 mg/dL before meals <180 mg/dL all other times of the day Specimen Anatomical Collection Method Collection Time Receive d Time (Source) Location / / Volume Laterality Blood 12/08/2021 10:55 12/08/2021 PM EDT 10:55 PM EDT Iker Cuevas MD POINT OF CARE TEST ORDERABLE S Performing Organization Address City/[facility]/[place] [address] Heparin (unfractionated) Level (12/08/2021 10:03 PM EDT) athologist Signature Heparin UFH 0.18 IU/mL [facility] LABORATORY Comment: Heparin (anti-Xa) levels should [...] Organization Address City/State/[place] [address] (ABNORMAL) Troponin (12/08/2021 10:03 PM EDT) athologist Signature Troponin-T 0.92 (H) 0.00 - BARBAR[facility] DAVIS 0.00 ng/mL [facility] LABORATORY [...] additional sample may be indicated. Reference: Third [place] Definition of Myocardial Infarction. Journal of the [place] [employer] 2012;60:1581-98 Specimen Anatomical Collection Method Collection Time Receive d Time (Source) Location / / Volume Laterality Blood 12/08/2021 10:03 12/08/2021 PM EDT 10:31 PM EDT Resulting Agency Comment Spec In Lab Iker Cuevas MD CHEMISTRY ORDERABLES Performing Organization Address City/State/ZIP Code Phon [place] [address] (ABNORMAL) POCT Glucose (12/08/2021 8:22 PM EDT) athologist Signature POC Glucose 429 (H) 65 - 199 BARBARA DAVIS mg/dL [facility] LABORATORY Comment: Supplemental ranges: <140 mg/dL before meals <180 mg/dL all other times of the day Specimen Anatomical Collection Method Collection Time Receive d Time (Source) Location / / Volume Laterality Blood 12/08/2021 8:22 PM 2 8:22 EDT PM EDT Iker Cuevas MD POINT OF CARE TEST ORDERABLE S Performing Organization Address City/[facility]/ZIP Code Phon e Number [address] (ABNORMAL) POCT Glucose (12/08/2021 7:06 PM EDT) athologist Signature POC Glucose 442 (H) 65 - 199 [facility] mg/dL [facility] LABORATORY Comment: Supplemental ranges: <140 mg/dL before meals <180 mg/dL all other times of the day Specimen Anatomical Collection Method Collection Time Receive d Time (Source) Location / / Volume Laterality Blood 12/08/2021 7:06 PM 2 7:06 EDT PM EDT Iker Cuevas MD POINT OF CARE TEST ORDERABLE S Performing Organization Address City/[facility]/[place] [address] Magnesium (12/08/2021 6:02 PM EDT) athologist Signature Magnesium 0.86 0.69 - 1.07 [facility] mmol/L [facility] LABORATORY Specimen Anatomical Collection Method Collection Time Receive d Time (Source) Location / / Volume Laterality Blood 12/08/2021 6:02 PM 2 6:36 EDT PM EDT Resulting Agency Comment Spec In Lab Iker Cuevas MD CHEMISTRY ORDERABLES Performing Organization Address City/[facility]/[place] [address] (ABNORMAL) Basic Metabolic Panel (non-fasting) (12/08/2021 6:02 PM EDT) athologist Signature Glucose Lvl 392 (H) 65 - 199 [facility] mg/dL [facility] LABORATORY Comment: [...] 107 mmol/L [facility] LABORATORY CO2 20 (L) 22 - 31 mmol/L [facility] LABORATORY Anion Gap 16 (H) [...] Address City/State/[place] [address] (ABNORMAL) Differential, Automated (12/08/2021 6:02 PM EDT) [facility] gist Method Time Signature Neutrophils % 89.5 % [facility] LABORATORY Neutr Abs (ANC) 13.97 (H) 1.70 - [facility] 6.10 [facility] x10(3)/[facility] L LABORATORY Lymphocytes % 3.7 % [facility] LABORATORY Lymphocytes Abs 0.6 (L) 0.9 - 3.2 [facility] x10(3)/[facility] LABORATORY Monocytes % 6.1 % [facility] LABORATORY Monocyte Abs 1.0 (H) 0.3 - 0.9 [facility] x10(3)/[facility] LABORATORY Eosinophils % 0.0 % [facility] LABORATORY Eosinophils Abs 0.0 0.0 - 0.4 [facility] x10(3)/[facility] LABORATORY Basophils % 0.2 % [facility] LABORATORY Basophils Abs 0.0 0.0 - 0.1 [facility] x10(3)/[facility] LABORATORY Immature Gran % 0.50 % [...] Address City/State/[place] [address] (ABNORMAL) Hemogram (12/08/2021 6:02 PM EDT) Analysis Performed At Patho logist Time Signature WBC 15.6 (H) 4.0 - 9.5 [facility] x10(3)/[facility] LABORATORY RBC 4.05 (L) 4.58 - [facility] 5.54 [facility] x10(6)/[facility] LABORATORY Hemoglobin 11.8 (L) 13.7 - BARBARA ZHAORYAN 16.5 g/dL [facility] LABORATORY Hematocrit 35.8 (L) 40.5 - [facility] 48.5 % [facility] LABORATORY MCV 88.4 82.9 - [facility] 93.1 [facility] LABORATORY MCH 29.1 27.5 - BARBARA ZHAORYAN 32.1 pg [facility] LABORATORY MCHC 33.0 32.0 - BARBARA ZHAORYAN 35.7 g/dL [facility] LABORATORY Platelets 178 145 - 357 [facility] x10(3)/[facility] LABORATORY RDWSD 49.3 (H) 36.0 - BARBARA ZHAORYAN 45.0 [facility] LABORATORY RDWCV 15.1 (H) 11.4 - BARBARA RYAN 13.8 % [facility] LABORATORY MPV 10.4 7.6 - 12.9 [facility] fL [facility] LABORATORY nRBC % Auto 0.0 % [facility] LABORATORY nRBC Abs Auto 0.000 0.000 - BARBAR[place] ZHAORYAN 0.000 [facility] x10(3)/[facility] LABORATORY Specimen Anatomical Collection Method Collection Time Receive d Time (Source) Location / / Volume Laterality Blood 12/08/2021 6:02 PM 6:36 EDT PM EDT Resulting Agency Comment Spec In Lab Morgan BROWN HEMATOLOGY ORDERABLES Performing Organization Address City/State/[place] [address] (ABNORMAL) Troponin (12/08/2021 6:02 PM EDT) P athologist Signature Troponin-T 0.89 (H) 0.00 - [facility]ILL[facility]AL[facility] 0.00 ng/mL [facility] [...] additional sample may be indicated. Reference: Third [place] Definition of Myocardial Infarction. Journal of the [place] [employer] 2012;60:1581-98 Specimen Anatomical Collection Method Collection Time Receive d Time (Source) Location / / Volume Laterality Blood 12/08/2021 6:02 PM 6:36 EDT PM EDT Resulting Agency Comment Spec In Lab Iker Cuevas MD CHEMISTRY ORDERABLES Performing Organization Address City/State/ZIP Code Phon e Number [place] [phone] COVID-19 PCR (12/08/2021 5:00 PM EDT) [facility] Method Time Signature SARS-CoV-2 Not Detected Not Detected BARBARA RNA PCR [facility] LABORATORY [...] using the Simplexa COVID-19 Direct Assay by [employer] as authorized by the FDA issued Emergency [...] fact sheets at the following FDA website: https://www.fda.gov/medical-devices/nuyqjsmjezm-atvlspm-0679-glovj-76-rtfczyhbm- glq-jomhxxnldcqkgw-vflrrzm-devices/qfuag-lrfqczclgps-ywxt SARS-CoV-2 Source MOTOR COACH CHAUFFEUR Swab [facility] LABORATORY Specimen (Source) Anatomical Collection Method Collection Time Re ceived Time Location / / Volume Laterality Nasopharyngeal Swab 12/08/2021 5:00 12/08 PM EDT 6:03 PM EDT Comment: Symptoms->Surveillance Resulting Agency Comment Spec In Lab Iker Cuevas MD MICROBIOLOGY - GENERAL ORDER [place] Performing Organization Address City/State/[place] [address] EKG 12 Lead (12/08/2021 4:40 PM EDT) Component Value Ref Range Test Analysis Performed Pathologis t Method Time At Signature Ventricular rate 78 BPM MUSE SYSTEM Atrial Rate 78 BPM MUSE SYSTEM P-R Interval 152 ms MUSE SYSTEM QRS Duration 96 ms MUSE SYSTEM Q-T Interval 396 ms MUSE SYSTEM QTC Calculated 451 ms MUSE SYSTEM (Bezet) Calculated P [place] 44 degrees MUSE SYSTEM Calculated R [place] -31 degrees MUSE SYSTEM Calculated T [place] 124 degrees MUSE SYSTEM INTERPRETATION Normal sinus [...] POC Glucose 400 (H) 65 - 199 [facility] mg/dL [facility] LABORATORY Comment: Supplemental ranges: <140 mg/dL before meals <180 mg/dL all other times of the day Specimen Anatomical Collection Method Collection Time Receive d Time (Source) Location / / Volume Laterality Blood 12/08/2021 4:34 PM 2 4:34 EDT PM EDT Iker Cuevas MD POINT OF CARE TEST ORDERABLE S Performing Organization Address City/State/[place] [address] documented in this encounter [...] Given 11/23 10:30 AM EDT 300 mcg (CHAR CONVEYOR TENDER CELLAR) ONCE PRN, Starting on Wed12/10/21 at 1030, [...] - Reason: Transfer to a Procedural area)1230 ([facility] Unhold - Provider: Admin Adt) 650 mg, [...] - Reason: Transfer to a Procedural area)1230 ([facility] Unhold - Provider: Admin Adt) 10 mg, [...] (Intra-Procedure), Routine niCARdipine (Cardene) (100 mcg/mL) dilution (CHAR CONVEYOR TENDER CELLAR) (CANCELED) 1030 (Given - Provider: Vitaliy Nobles [...] episode. & nbsp; For persistent hypoglycemia, con programming instructor longer-acting treatment for the duration of the [...]
Routine documented in this encounter Care Teams Beaming Machine Operator Relationship Specialty Start Date End Date Lovely Vicente MD PCP - General 04/16/[address] [place] [address] documented as of this encounter
--- OUTSIDE RECORDS SUMMARY | 2022-04-20 08:11 | XMS_ITS | Encounter Summary ---
:1945 Author Organization [facility] Address [facility] [place] [address] Care Team Providers Name Role Phone Lovely Vicente MD Primary Care Provider Encounter Details Date Type Department Care Team Description 01/02/2020 Office Visit Dermatology at [facility] keratoses; Abdelrahman HOOPER MD History of melanoma; [address] [facility] History of dysplastic nevus; [place] [address] Multiple benign nevi; [phone] [facility] Seborrheic yossi lancaster; RD-DERMATOLGY Skin exam for malignant neoplasm [place], [place] [address] Social History Tobacco Use [...] Zulma Dolan MD [facility] [address] [place], [place] [address] (Wo lissa) 05/28/2022 Laboratory Appointment Lab 05/28/2022 Office Visit Cardiology Zulma Dolan MD [facility] [place] [id number] Liz Poole PA [facility] [place] [address] 06/10/2022 Office Visit Dermatology Laura Scherer MD [facility] [address] [place], [place] [address] (Wo lissa) documented as [...] skin documented in this encounter Care Teams Leather Coverer Relationship Specialty Start Date End Date Lovely Vicente MD PCP - General 04/16/15 [facility] [address] [place] [address] documented as of this encounter
--- OUTSIDE RECORDS SUMMARY | 2022-04-20 08:11 | XMS_ITS | Encounter Summary ---
:1945 Author Organization [facility] [place] [address] Care Team Providers Name Role Phone Lovely Vicente MD Primary Care Provider Encounter Details Date Type Department Care Team Description 12/07/2021 Telephone Cardiology Eddi Briceño Jr., [facility] [place] [address] [facility] [phone] CARDIOLOGY DEPT [place], [place] [address] (Wo rk) Social [...] [facility] Referring Provider: Marisela Dean, IT INFRASTRUCTURE ENGINEER [address] [place] [address] Don Veda Kushal 76 y.o. w / [...] bpm, LAFB, poor R wave progression, septal AR, and lateral STD, overall no significantchange from [...] MD [facility] [place] [address] (Wo rk) 05/28/2022 Laboratory Appointment Lab 05/28/2022 Office Visit Cardiology Zulma Dolan MD [facility] [place] [address] Liz Poole PA [facility] [place] [address] 06/10/2022 Office Visit Dermatology Laura Scherer MD [facility] DR [address] [place], [place] [address] (Wo rk) documented as of this encounter Visit Diagnoses Not on filedocumented in this encounter Care Teams Value Engineer Relationship Specialty Start Date End Date Lovely Vicente MD PCP - General 04/16/15 [facility] [address] [place] [address] documented as of this encounter
--- OUTSIDE RECORDS SUMMARY | 2022-04-20 08:11 | XMS_ITS | Encounter Summary ---
:1945 [place] [address] Care Team Providers Name Role Phone Lovely Vicente MD Primary Care Provider Encounter Details Date Type Department Care Team Description 03/20/2021 Telephone Neurology at [facility] Hugo Gaston MD [facility] [place] [address] [place] [address] [phone] (Wo rk) Social History Tobacco Use Types [...] - 03/20/2021 6:03 PM EDT Call from [facility]. 76 M with h/o DM. CABG, AFib. Dizziness since 5 am. Double vision while driving. Intermittent symptoms till 1pm when he came to ED. Was off balance. Negative examination. 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 MRI negative. He's now better. Has atherosclerotic disease. Recommend adding aspirin 81 daily. Outpatient workup for any vestibular issues. Hugo aGston MD Department of Neurology Pager # [phone] documented in this encounter Plan of Treatment Upcoming Encounters Date Type Specialty Care Team Description 05/28/2022 Appointment Cardiology Zulma Dolan MD [facility] [place], [place] [address] (Wo rk) 05/28/2022 Laboratory Appointment Lab 05/28/2022 Office Visit Cardiology Zulma Dolan MD [facility] [place] [address] Liz Poole PA [facility] [place] [address] 06/10/2022 Office Visit Dermatology Laura Scherer MD [facility] DR [address] [place], [place] [address] (Wo rk) documented as of this encounter Visit Diagnoses Not on filedocumented in this encounter Care Teams Proof Clerk Relationship Specialty Start Date End Date Lovely Vicente MD PCP - General 04/16/[address] [place] [address] documented as of this encounter
--- OUTSIDE RECORDS SUMMARY | 2022-04-20 08:11 | XMS_ITS | Encounter Summary ---
:1945 Author Organization [facility] Address [facility] [place] [address] Care Team Providers Name Role Phone Lovely Vicente MD Primary Care Provider Reason for Referral Diagnostic Test (Routine) - Specialty Diagnoses / Procedures Referred By Contact Refer red To Contact Cardiology Diagnoses Chronic systolic heart failure Danette Maxwell APRN [facility] Non-Inv Card Lab Procedures Echocardiogram Transthoracic(Leb) [facility] [place] [address] [place] [address] Referral ID Status Reason Start Date Expiration Visits Visits Date Requested Authorized [id number] Specialty 08/15/2018 08/15/2018 1 1 Service Requested Encounter Details Date Type Department Care Team Description 04/18/2018 Office Visit Cardiology at [facility] Danette Maxwell Chronic systolic heart failu re; [facility] STACIE Gomes On amiodarone therapy; [facility][note 2] Ischemic cardiomyopathy; [place], [place] DR ONOFRE (arteriosclerotic cardiovascular d isease) [id number] CARDIOLOGY [phone] [place], [place] [address] Social History Tobacco Use Types Packs/Day Years [...] in this encounter Progress Notes Danette Maxwell, YARN POLISHING MACHINE OPERATOR - 04/18/2018 10:40 AM EDT [...] Dolan MD [facility] [address] [place], [place] [address] (Wo rk) 05/28/2022 Laboratory Appointment Lab 05/28/2022 Office Visit Cardiology Zulma Dolan MD [facility] [address] Liz Poole PA [facility] [place] [address] 06/10/2022 Office Visit Dermatology Laura Scherer MD [facility] [address] [place], [place] [address] (Wo rk) documented as [...] Mccollum ? (Age): 1945(73y) Med Rec#: ? [id number] ?Sex: ?M ? Site Loc: ? [facility] ?Ht / Wt: ??172(cm)/81(kg) Pt. Loc: ?Echo Lab ?BSA: ?1.94 Study Date: ?? 08/15/2018 ?Pt. Type: Outpatient Tape: ? Referring: MARY ELLEN Reading: Scott Ortega ([id number]) Slug Press Operator: Laura Sargetn Diagnosis: *Chronic systolic (congestive) heart fa perry [...] gitation present. Tricuspid Valve: ? The tricuspid clolette ve is not well visualized. ?The tricuspid [...] E-wave Vmax ?1.2 ?m/sec ? MV deceleration apom196.4 ? msec ? MV A-wave Vmax ?0.7 [...] ? Mid-Inferior ?Hypokinetic ? Mid-Inferoseptal ?Hypokinetic ? [place]-Septal ? Akinetic ? [place]-Anterior ? Hypokinetic ? [place]-Lateral ?Akinetic ? [place]-Inferior ? Hypokinetic ? [place]-Tip ?Akinetic ? This report has been electronically sign ed by: _ Scott Ortega M.D. ? 08/15/2018 08:17:26 Images reviewed and interpretation verif ied [facility] Cardiac Ultrasound Laboratory Procedure Note Scott Ortega MD - 08/15/2018Format ting of this note might be different from the original. Procedure: Transthoracic Echocardiogram Patient: NATALYA MCBRIDE(Age): [birth year]73y) Med Rec#: [id number] Sex: M Site Loc: [facility] Ht / Wt: 172(cm)/81(kg) Pt. Loc: Echo Lab BSA: 1.94 Study Date: 08/15/2018 Pt. Type: Outpati ent Tape: Referring: MARY ELLEN Reading: Scott Ortega ([id number]) Slug Press Operator: Laura Sargent Diagnosis: *Chronic systolic (congestive) [...] MV E-wave Vmax 1.2 m/sec MV deceleration aqzv023.4 msec MV A-wave Vmax 0.7 m/sec MV [...] Akinetic Mid-Posterolateral Akinetic Mid-Inferior Hypokinetic Mid-Inferoseptal Hypokinetic [place]-Septal Akinetic [place]-Anterior Hypokinetic [place]-Lateral Akinetic [place]-Inferior Hypokinetic [place]-Tip Akinetic This report has been electronically sign ed by: _ Scott Ortega M.D. 08/15/2018 08:17: 26 Images reviewed and interpretation verif ied [facility] Cardiac Ultrasound Laboratory Danette Maxwell APRN ECHO ORDERABLES (ABNORMAL) Basic Metabolic Panel (non-fasting) (04/18/2018 9:19 AM EDT) P athologist Signature Glucose Lvl 167 65 - 199 [facility] mg/dL [facility] LABORATORY [...] of body mass or the acutely ill. [email or web address] eGFR 70 >=60 mL/min/1.73 m?? [facility] LAB[facility] Comment: The eGFR was calculated using the CKD-EP I equation. As with all creatinine based estimates of kidney function, eGFR values calculated with the CKD-EPI equation are not accurate in patients wi th acute kidney failure, extremes of body mass or the acutely ill. [email or web address] Specimen Anatomical Collection Method Collection Time Receive d Time (Source) Location / / Volume Laterality Blood specimen 04/18/2018 9:19 AM 018 9:34 (specimen) EDT AM EDT Resulting Agency Comment Spec In Lab Danette Maxwell APRN CHEMISTRY ORDERABLES Performing Organization Address City/State/ZIP [place] [address] (ABNORMAL) pro-Brain Natriuretic Peptide (04/18/2018 9:19 AM EDT) P athologist Signature ProBNP 2,199 (H) <=125 [facility] pg/mL [facility] LABORATORY Specimen Anatomical Collection Method Collection Time Receive d Time (Source) Location / / Volume Laterality Blood specimen 04/18/2018 9:19 AM 018 9:34 (specimen) EDT AM EDT Resulting Agency Comment Spec In Lab Danette Maxwell APRN CHEMISTRY ORDERABLES Performing Organization Address City/State/ZIP [place] [address] documented in this encounter Visit Diagnoses Diagnosis Chronic systolic heart failure On amiodarone therapy Ischemic cardiomyopathy Other specified forms of chronic ischemi c heart disease ASCVD (arteriosclerotic cardiovascular d isease) Unspecified cardiovascular disease Chronic systolic heart failure documented in this encounter Care Teams Health Plan Manager Relationship Specialty Start Date End Date Lovely Vicente MD PCP - General 04/16/[address] [place] [address] documented as of this encounter
--- OUTSIDE RECORDS SUMMARY | 2022-04-20 08:11 | XMS_ITS | Encounter Summary ---
:1945 Author Organization [facility] [place] [address] Care Team Providers Name Role Phone Lovely Vicente MD Primary Care Provider Encounter Details Date Type Department Care Team Description 08/26/2018 Transcribe Orders Laboratory Lovely Vicente, Deferred diagnosis [facility] on axis I [address] [address] [place], [place] [phone] [address] Social History Tobacco Use Types Packs/Day Years [...] Zulma Dolan MD [facility] [address] [place], [place] [address] (Wo rk) 05/28/2022 Laboratory Appointment Lab 05/28/2022 Office Visit Cardiology Zulma Dolan [place] [facility] [place] [address] Liz Poole PA [facility] [place] [address] 06/10/2022 Office Visit Dermatology Laura Scherer MD [facility] [address] [place], [place] [address] (Wo rk) documented as of this encounter Visit Diagnoses Diagnosis Deferred diagnosis on axis I Other unknown and unspecified cause of m orbidity or mortality documented in this encounter Care Teams Veterinary Technician Relationship Specialty Start Date End Date Lovely Vicente MD PCP - General 04/16/15 [facility] [address] [place] [address] documented as of this encounter
--- OUTSIDE RECORDS SUMMARY | 2022-04-20 08:11 | XMS_ITS | Encounter Summary ---
:1945 Author Organization [facility] [place] [address] Care Team Providers Name Role Phone Lovely Vicente MD Primary Care Provider Reason for Visit Reason Onset Date Comments Other 03/24/2019 cardiac clearance ne eded Encounter Details Date Type Department Care Team Description 03/24/2019 Telephone [place]iology [place] [facility] Danette Maxwell, Other (cardiac [facility] DOMESTIC VIOLENCE COUNSELOR clearance needed) [place] [address] CARDIOLOGY [place], [place] [address] (Wo rk) Social History Tobacco [...] AM EDT Leonela from [facility] [place] called requesting cardiac clearance for this patient who is to have a colonoscopy on 04/04/19. He is on anticoagulation and they will need to bridge him. Their phone # [phone], fax# [phone]. Thank you. documented in this encounter Plan of Treatment Upcoming Encounters Date Type Specialty Care Team Description 05/28/2022 Appointment Cardiology Zulma Dolan MD [facility] [place], [place] [address] (Wo rk) 05/28/2022 Laboratory Appointment Lab 05/28/2022 Office Visit Cardiology Zulma Dolan MD [facility] [place] [address] Liz Poole PA [facility] [place] [address] 06/10/2022 Office Visit Dermatology Laura Scherer MD [facility] [address] [place], [place] [address] (Wo rk) documented as of this encounter Visit Diagnoses Not on filedocumented in this encounter Care Teams Chief Engineer Production Relationship Specialty Start Date End Date Lovely Vicente MD PCP - General 04/16/[address] [place] [address] documented as of this encounter
--- OUTSIDE RECORDS SUMMARY | 2022-04-20 08:11 | XMS_ITS | Encounter Summary ---
:1945 [place] [address] Care Team Providers Name Role Phone Lovely Vicente MD Primary Care Provider Encounter Details Date Type Department Care Team Description 04/16/2021 Office Visit Cardiology at [facility] Liz Poole, Chronic systolic heart [facility] [place] [address] Cardiology Dept [phone] [place], [place] [address] Social History Tobacco Use Types [...] was feeling good. 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 07/07/2019 - 07/21/2019 Zio Patch Electronics Engineering Technologist The patient had a minimum heart rate [...] K+ 5.2 today 6. Post-op atrial fibrillation [id number] (CHF, HTN, DM, vascular disease, thromboembolism) [...] Zulma Dolan MD [facility] [place], [place] [address] (Wo rk) 05/28/2022 Laboratory Appointment Lab 05/28/2022 Office Visit Cardiology Zulma Dolan MD [facility] [place] [address] Liz Poole PA [facility] [place] [address] 06/10/2022 Office Visit Dermatology Laura Scherer MD [facility] [address] [place], [place] [address] (Wo rk) documented as of this encounter Results (ABNORMAL) Basic Metabolic Panel (non-fasting) (04/16/2021 9:58 AM EDT) athologist Signature Glucose Lvl 77 65 - 199 [facility] mg/dL [facility] LABORATORY Comment: Diabetes: >=200 mg/dL plus symp toms BUN 23 (H) 10 - 20 mg/dL [facility] LABORATORY Creatinine 1.26 0.80 - 1.50 mg/dL [facility] LABORATORY Sodium 140 135 - 145 mmol/L [facility] LABORATORY Potassium 5.2 (H) 3.5 - 5.0 mmol/L [facility] Estimated GFR 55 (L) [...] Organization Address City/State/[place] [address] (ABNORMAL) pro-Brain Natriuretic Peptide [...] Organization Address City/State/[place] [address] documented in this encounter Visit Diagnoses Diagnosis Chronic systolic heart failure documented in this encounter Care Teams Starter Cup Powder Mixer Relationship Specialty Start Date End Date Lovely Vicente MD PCP - General 04/16/[address] [place] [address] documented as of this encounter
--- OUTSIDE RECORDS SUMMARY | 2022-04-20 08:11 | XMS_ITS | Encounter Summary ---
:1945 Author Organization [facility] [place] [address] Care Team Providers Name Role Phone Lovely Vicente MD Primary Care Provider Reason for Visit Reason Onset Date Comments Follow-up 07/13/2018 amiodarone discontin ued Encounter Details Date Type Department Care Team Description 07/13/2018 Telephone Cardiology at [facility] Martha Comer, Follow-up (amiodarone [facility] RN discontin ued) [place] [address] Social History Tobacco Use Types Packs/Day [...] 07/13/2018 8:57 AM EST Per DIRECTOR OF DEMENTIA OPERATIONS Hans call placed to the home number for the pt. confirmed that the pt is still taking the amiodarone. Pt is to stop the amiodarone. Pt taking it for post op a-fib, therapy was supposed to be for 30 days. Message given to his . She will give him the message and will have him call with any questions. Call placed to the [facility] pharmacy in [place] to discontinue it there as well. Med list updated. documented in this encounter Plan of Treatment Upcoming Encounters Date Type Specialty Care Team Description 05/28/2022 Appointment Cardiology Zulma Dolan MD [facility] [address] [place], [place] [address] (Wo rk) 05/28/2022 Laboratory Appointment Lab 05/28/2022 Office Visit Cardiology Zulma Dolan MD [facility] [place] [address] Liz Poole PA [facility] [place] [address] 06/10/2022 Office Visit Dermatology Laura Scherer MD [facility] [address] [place], [place] [address] (Wo rk) documented as of this encounter Visit Diagnoses Not on filedocumented in this encounter Care Teams Supervisor Fish Processing Relationship Specialty Start Date End Date Lovely Vicente MD PCP - General 04/16/[address] [place] [address] documented as of this encounter
--- OUTSIDE RECORDS SUMMARY | 2022-04-20 08:11 | XMS_ITS | Encounter Summary ---
:1945 Author Organization [facility] [place] [address] Care Team Providers Name Role Phone Lovely Vicente MD Primary Care Provider Encounter Details Date Type Department Care Team Description 12/07/2021 External Results Administration [facility] [place] [address] Social History Tobacco Use Types Packs/Day [...] Dolan MD [facility] er [address] [place] [address] (Wo rk) 05/28/2022 Laboratory Appointment Lab 05/28/2022 Office Visit Cardiology Zulma Dolan MD [facility] [place] [address] Liz Poole PA [facility] [place] [address] 06/10/2022 Office Visit Dermatology Laura Scherer MD [facility] ER [address] [place], [place] [address] (Wo rk) documented as of [...] on filedocumented in this encounter Care Teams Etl Consultant Relationship Specialty Start Date End Date Lovely Vicente MD PCP - General 04/16/[address] [place] [address] documented as of this encounter
--- OUTSIDE RECORDS SUMMARY | 2022-04-20 08:11 | XMS_ITS | Encounter Summary ---
:1945 [place] [address] Care Team Providers Name Role Phone Lovely Vicente MD Primary Care Provider Encounter Details Date Type Department Care Team Description 11/29/2017 Hospital Encounter Radiology Library at Estefany Maxwell Pain [facility] [place] [address] CARDIOLOGY [phone] [place], [place] [address] (Wo rk) Social History [...] Description 05/28/2022 Appointment Cardiology Zulma Doaln MD [facility] [place], [place] [address] (Wo rk) 05/28/2022 Laboratory Appointment Lab 05/28/2022 Office Visit Cardiology Zulma Dolan MD [facility] [place] [address] Liz Poole PA [facility] [place] [address] 06/10/2022 Office Visit Dermatology Laura Scherer MD [facility] [address] OLOGY [place], [place] [address] (Wo rk) documented as [...] Organization Address City/State/ZIP Code Phon e Number [place], [place] documented in this encounter Visit Diagnoses Diagnosis Pain Generalized pain documented in this encounter Care Teams Piece Dyer Relationship Specialty Start Date End Date Lovely Vicente MD PCP - General 04/16/[address] [place] [address] documented as of this encounter
--- OUTSIDE RECORDS SUMMARY | 2022-04-20 08:11 | XMS_ITS | Encounter Summary ---
:1945 Author Organization [facility] [address] Care Team Providers Name Role Phone Lovely Vicente MD Primary Care Provider Reason for Visit Reason Comments Follow-up Skin Check Encounter Details Date Type Department Care Team Description 01/06/2018 Office Visit Dermatology at Rigoberto Formantipmirna nevi; Abdelrahman HOOPER MD History of melanoma; [address] [facility] [place] [address] [facility] [place], [place] [address] Social History Tobacco Use Types [...] MD [facility] [address] [place], [place] [address] (Wo rk) 05/28/2022 Laboratory Appointment Lab 05/28/2022 Office Visit Cardiology Zulma Dolan MD [facility] [place] [address] Liz Poole PA [facility] [place] [address] 06/10/2022 Office Visit Dermatology Laura Scherer MD [facility] [address]DERMAT [place], [place] [address] (Wo rk) documented as of this encounter Visit Diagnoses Diagnosis Multiple nevi Benign neoplasm of skin, site unspecifie d History of melanoma Personal history of malignant melanoma o f skin Seborrheic keratosis Other seborrheic keratosis documented in this encounter Care Teams Fixed Wing Pilot Relationship Specialty Start Date End Date Lovely Vicente MD PCP - General 04/16/[address] [place] [address] documented as of this encounter
--- OUTSIDE RECORDS SUMMARY | 2022-04-20 08:11 | XMS_ITS | Encounter Summary ---
:1945 Author Organization [facility] [place] [address] Care Team Providers Name Role Phone Lovely Vicente MD Primary Care Provider Encounter Details Date Type Department Care Team Description 04/18/2018 Laboratory Appointment Lab 3L [facility] [place] [id number] Social History Tobacco Use Types Packs/Day Years [...] [facility] [place], [place] [address] (Wo rk) 05/28/2022 Laboratory Appointment Lab 05/28/2022 Office Visit Cardiology Zulma Dolan MD [facility] [place] [address] Liz Poole PA [facility] [place] [address] 06/10/2022 Office Visit Dermatology Laura Scherer MD [facility] ER DR [address]-DERMAT [place], [place] [address] (Wo rk) documented as of [...] Signature Total Protein 7.6 6.1 - 8.0 [facility] gm/dL [facility] Albumin 4.0 3.2 - 5.2 [facility] gm/dL [facility] AST 36 0 - 39 [facility] unit/L [facility] ALT 27 0 - 55 [place] unit/L [facility] Alk Phos 96 40 - 120 [facility] unit/L [facility] Total 0.7 0.2 - 1.3 KATALINA [place] Bilirubin mg/dL [facility] Bili, Direct 0.1 0.0 - 0.3 [facility] mg/dL [facility] Specimen Anatomical Collection Method Collection Time Receive d Time (Source) Location / / Volume Laterality Blood specimen Venous Draw / 04/18/2018 9:19 AM 2017 9:44 (specimen) Unknown EDT AM EDT Resulting Agency Comment Spec In Lab Danette Maxwell APRN CHEMISTRY ORDERABLES Performing Organization Address City/State/[place] [address] TSH (04/18/2018 9:19 AM EDT) athologist Signature TSH 1.77 0.27 - 4.20 [facility] mlU/ML [facility] Specimen Anatomical Collection Method Collection Time Receive d Time (Source) Location / / Volume Laterality Blood specimen Venous Draw / 04/18/2018 9:19 AM 2017 9:44 (specimen) Unknown EDT AM EDT Resulting Agency Comment Spec In Lab Danette Maxwell APRN CHEMISTRY ORDERABLES Performing Organization Address City/State/[place] [address] (ABNORMAL) Basic Metabolic Panel (non-fasting) (04/18/2018 9:19 AM EDT) athologist Signature Glucose Lvl 167 65 - 199 [facility] mg/dL [facility] Comment: Diabetes: >=200 mg/dL plus symp toms BUN 18 10 - 20 mg/dL [facility] Creatinine 1.19 0.80 - 1.50 mg/dL [facility] Sodium 147 (H) 135 - 145 mmol/L [facility] [...] mg/dL [facility] Estimated GFR 61 >=60 mL/min/1.73 m?? [facility] Comment: The eGFR was calculated using the CKD-EP I equation. As with all creatinine based estimates of kidney function, eGFR values calculated with the CKD-EPI equation are not accurate in patients wi th acute kidney failure, extremes of body mass or the acutely ill. http://Appfolio/DHMCnkf eGFR 70 >=60 mL/min/1.73 m?? [facility] Comment: The eGFR was calculated using the CKD-EP I equation. As with all creatinine based estimates of kidney function, eGFR values calculated with the CKD-EPI equation are not accurate in patients wi th acute kidney failure, extremes of body mass or the acutely ill. http://Appfolio/DHnkf Specimen Anatomical Collection Method Collection Time Receive d Time (Source) Location / / Volume Laterality Blood specimen 04/18/2018 9:19 AM 018 9:34 (specimen) EDT AM EDT Resulting Agency Comment Spec In Lab Danette Maxwell APRN CHEMISTRY ORDERABLES Performing Organization Address City/[facility]/[place] [address] (ABNORMAL) pro-Brain Natriuretic Peptide (04/18/2018 9:19 AM EDT) P athologist Signature ProBNP 2,199 (H) <=125 [facility] pg/mL [facility] Specimen Anatomical Collection Method Collection Time Receive d Time (Source) Location / / Volume Laterality Blood specimen 04/18/2018 9:19 AM 018 9:34 (specimen) EDT AM EDT Resulting Agency Comment Spec In Lab Danette Maxwell APRN CHEMISTRY ORDERABLES Performing Organization Address City/[facility]/[place] [address] documented in this encounter Visit Diagnoses Diagnosis Chronic systolic heart failure documented in this encounter Care Teams Program Aide Group Work Relationship Specialty Start Date End Date Lovely Vicente MD PCP - General 04/16/[address] [place] [address] documented as of this encounter
--- OUTSIDE RECORDS SUMMARY | 2022-04-20 08:11 | XMS_ITS | Encounter Summary ---
:1945 Author Organization [facility] [place] [address] Care Team Providers Name Role Phone Lovely Vicente MD Primary Care Provider Encounter Details Date Type Department Care Team Description 12/08/2021 External Results Non-Invasive Cardiology Lab Mar y None [facility] [place] [address] Social History Tobacco Use Types Packs/Day [facility] [place] [address] (Wo rk) 05/28/2022 Laboratory Appointment Lab 05/28/2022 Office Visit Cardiology Zulma Dolan MD [facility] [place] [address] Liz Poole PA [facility] [place] [address] 06/10/2022 Office Visit Dermatology Laura Scherer MD [facility] [address] [place], [place] [address] (Wo rk) documented as of [...] General 04/16/[address] [place] [address] documented as of this encounter
--- OUTSIDE RECORDS SUMMARY | 2022-04-20 08:11 | XMS_ITS | Encounter Summary ---
:1945 Author Organization [facility] [place] [address] Care Team Providers Name Role Phone Lovely Vicente MD Primary Care Provider Encounter Details Date Type Department Care Team Description 08/15/2018 Laboratory Lab 3L Katalina Chronic systoli c heart failure; Appointment [facility] [place] ASCVD (ar teriosclerotic cardiovascular disease) [place] [address] Social History Tobacco Use Types [...] MD [facility] er [place], [place] [address] (Wo rk) 05/28/2022 Laboratory Appointment Lab 05/28/2022 Office Visit Cardiology Zulma Dolan MD [facility] [place] [address] Liz Poole PA [facility] [place] [address] 06/10/2022 Office Visit Dermatology Laura Scherer MD [facility] [address] GR[address] [place], [place] [address] (Wo rk) documented as [...] Glucose Lvl 116 65 - 199 [facility] mg/dL [facility] Comment: Diabetes: >=200 mg/dL plus symp toms BUN 21 (H) 10 - 20 mg/dL [facility] mmol/L [facility] Calcium 9.0 8.5 - 10.5 [...] body mass or the acutely ill. http://[employer]./[facility] LAWTONnkf eGFR 79 >=60 mL/min/1.73 m?? [facility] Comment: The eGFR was calculated using the CKD-EP I equation. As with all creatinine based estimates of kidney function, eGFR values calculated with the CKD-EPI equation are not accurate in patients wi th acute kidney failure, extremes of body mass or the acutely ill. http://[employer]./[facility] LAWTONnkf Specimen Anatomical Collection Method Collection Time Receive d Time (Source) Location / / Volume Laterality Blood specimen 08/15/2018 8:04 AM 019 8:20 (specimen) EST AM EST Resulting Agency Comment Spec In Lab Danette Maxwell APRN CHEMISTRY ORDERABLES Performing Organization Address City/State/ZIP [place] [address] Lipid Panel (08/15/2018 8:04 AM EST) P athologist Signature Chol, Total 75 mg/dL [facility] Comment: Lower Risk: <200 mg/dL Average Risk: 200-239 mg/dL Higher Risk: >hj=714 mg/dL Triglycerides 185 mg/dL [facility] Comment: Average Risk/Lower Risk: <150 mg/dL Borderline High Risk: 150-199 mg/dL High Risk: 200-499 mg/dL Very High Risk: >py=272 mg/dL HDL 32 mg/dL [facility] Comment: Males: ?? Higher Risk: <40 mg/dL Females: ?? HIgher Risk: <50 mg/dL LDL Cholesterol 6 mg/dL [facility] Comment: Lowest Risk: <100 mg/dL Lower Risk: 100-129 mg/dL Borderline High Risk: 130-159 mg/dL High Risk: 160-189 mg/dL Very High Risk: >lc=267 mg/dL Chol/HDL Ratio 2.3 ratio [facility] Lipid Interpretation See Note [facility] Comment: Lipid management should be guided by a p atient? s ASCVD risk, goals and preferences. ACC/AHA Guidelines recommend high intens ity statin if clinical ASCVD or LDL greater than or equal to 190 mg/dL. http://GalaDo.com/ERO-NKJ-Wwqxsiwzp Adults aged 40-75 with LDL 70-189 mg/dL should have their 10 year ASCVD risk estimated with the ACC/AHA ASCVD risk es timator http://tools.acc.org/MLGZY-Xpfp-Xthxlhnx r/ Statin should be discussed if risk [...] City/State/[place] [address] (ABNORMAL) pro-Brain Natriuretic Peptide (08/15/2018 8:04 AM EST) athologist Signature ProBNP 1,797 (H) <=125 [facility] pg[facility]mL [facility] Specimen Anatomical Collection Method Collection Time Receive d Time (Source) Location / / Volume Laterality Blood specimen 08/15/2018 8:04 AM 019 8:20 (specimen) EST AM EST Resulting Agency Comment Spec In Lab Danette Maxwell APRN CHEMISTRY ORDERABLES Performing Organization Address City/State/[place] [address] documented in this encounter Visit Diagnoses Diagnosis Chronic systolic heart failure ASCVD (arteriosclerotic cardiovascular d isease) Unspecified cardiovascular disease documented in this encounter Care Teams Coding Quality Coordinator Relationship Specialty Start Date End Date Lovely Vicente MD PCP - General 04/16/[address] [place] [address] documented as of this encounter
--- OUTSIDE RECORDS SUMMARY | 2022-04-20 08:11 | XMS_ITS | Encounter Summary ---
:1945 Author Organization [facility] Address [facility] [place] [address] Care Team Providers Name Role Phone Lovely Vicente MD Primary Care Provider Reason for Referral Diagnostic Test (Routine) - Closed Specialty Diagnoses / Procedures Referred By Contact Refer red To Contact Cardiology Diagnoses Chronic systolic heart failure Danette Maxwell APRN [facility] Non-Inv Card Lab Procedures Echocardiogram Transthoracic(Leb) [facility] [place] [address] [place] [address] Referral ID Status Reason Start Date Expiration Date Visits V isits Requested Authorized [id number] Closed Specialty 07/17/2019 09/14/2019 1 1 Service Requested Encounter Details Date Type Department Care Team Description 01/16/2019 Office [address] Cardiology at [facility] Danette Maxwell, Chronic systolic heart failu re; [facility] STACIE Cardiomyopathy, ischemic; Drive [facility] Hx of thyroid cancer; [place], [place] DR ELMORE (arteriosclerotic heart disease); [phone] CARDIOLOGY MARIA VICTORIA (obstructive sleep apnea) on CPAP [phone] [place], [place] [address] (Wo rk) Social History Tobacco Use Types [...] K+ 4.6 today 6. Post-op atrial fibrillation [id number] (CHF, HTN, DM, vascular disease, thromboembolism) [...] Zulma Dolan MD [facility] [place], [place] [address] (Wo rk) 05/28/2022 Laboratory Appointment Lab 05/28/2022 Office Visit Cardiology Zulma Dolan MD [facility] [place] [address] Liz Poole PA [facility] [place] [address] 06/10/2022 Office Visit Dermatology Laura Scherer MD [facility] DR [address]MAT OLOGY [place], [place] [address] (Wo rk) documented as of this encounter Results ECHOCARDIOGRAM COMPLETE W CONTRAST (07/28/2019 8:19 AM EST) athologist Signature EF 40 [facility] Anatomical Region Laterality Modality Other Specimen (Source) Anatomical Location Collection Method / Collectio n Time Received Time / Laterality Volume 07/28/2019 Narrative 07/28/2019 8:38 AM EST Procedure: ?Transthoracic Echocardiogram Patient: ?NATALYA Mccollum ? (Age): 1945(74y) Med Rec#: ? [id number] ?Sex: ?M ? Site Loc: ? [facility] ?Ht / Wt: ??172(cm)/81(kg) Pt. Loc: ?Echo Lab ?BSA: ?1.94 Study Date: ?? 07/28/2019 ?Pt. Type: Outpatient Tape: ? Referring: MARY ELLEN Reading: Ifeanyi Truong ([id number]) Cloth Inspector: Fadumo Flanagan RDCS, REGINA Diagnosis: *Chronic systolic [...] E-wave Vmax ?1 ?m/sec ? MV deceleration towr029.5 ? msec ? MV A-wave Vmax ?1 [...] ? Pulmonic Valve/Qp:Qs ?Value ?Units (Range) ? DE end-diastolic Vma1.1 ?m/sec ? Wall Motion: Segment Name ?Rest ? Base-Anteroseptal ?? Normal ? Base-Anterior ? Normal ? Base-Anterolateral ??Normal ? Base-Posterolateral Normal ? Base-Inferior ? Akinetic ? Base-Inferoseptal ?? Normal ? Mid-Anteroseptal ?Normal ? Mid-Anterior ?Hypokinetic ? Mid-Anterolateral ?? Normal ? Mid-Posterolateral ??Normal ? Mid-Inferior ?Hypokinetic ? Mid-Inferoseptal ?Normal ? [place]-Septal ? Normal ? [place]-Anterior ? Hypokinetic ? [place]-Lateral ?Normal ? [place]-Inferior ? Akinetic ? [place]-Tip ?Hypokinetic ? This report has been electronically sign ed by: _ Ifeanyi Truong M.D. ? 07/28/2019 0 8:38:01 Images reviewed and interpretation [facility] Procedure Note Ifeanyi Truong MD - 07/28/2019Formatt ing of this note might be different from the original. Procedure: Transthoracic Echocardiogram Patient: NATALYA MCBRIDE(Age): [birth year]74y) Med Rec#: [id number] Sex: M Site Loc: [facility] Ht / Wt: 172(cm)/81(kg) Pt. Loc: Echo Lab BSA: 1.94 Study Date: 07/28/2019 Pt. Type: Outpati ent Tape: Referring: MARY ELLEN Reading: Ifeanyi Truong ([id number]) Cloth Inspector: Fadumo Flanagan [facility], REGINA Diagnosis: *Chronic systolic (congestive) heart fa [...] MV E-wave Vmax 1 m/sec MV deceleration mdbw270.5 msec MV A-wave Vmax 1 m/sec MV [...] 0.7 ratio Pulmonic Valve/Qp:Qs Value Units (Range) DE end-diastolic Vma1.1 m/sec Wall Motion: Segment Name Rest Base-Anteroseptal Normal Base-Anterior Normal Base-Anterolateral Normal Base-Posterolateral Normal Base-Inferior Akinetic Base-Inferoseptal Normal Mid-Anteroseptal Normal Mid-Anterior Hypokinetic Mid-Anterolateral Normal Mid-Posterolateral Normal Mid-Inferior Hypokinetic Mid-Inferoseptal Normal [place]-Septal Normal [place]-Anterior Hypokinetic [place]-Lateral Normal [place]-Inferior Akinetic [place]-Tip Hypokinetic This report has been electronically sign ed by: _ Ifeanyi Truong M.D. 07/28/2019 08:38:0 1 Images reviewed and interpretation verif ied [facility] Cardiac Ultrasound Laboratory Danette Maxwell APRN ECHO ORDERABLES (ABNORMAL) Basic Metabolic Panel (non-fasting) (01/16/2019 7:49 AM EDT) P athologist Signature Glucose Lvl 105 65 - 199 [facility] mg/dL [facility] Comment: Diabetes: [...] of body mass or the acutely ill. http://From The Bench/BioFire Diagnosticsnkf eGFR 79 >=60 mL/min/1.73 m?? [facility] Comment: The eGFR was calculated using the CKD-EP I equation. As with all creatinine based estimates of kidney function, eGFR values calculated with the CKD-EPI equation are not accurate in patients wi th acute kidney failure, extremes of body mass or the acutely ill. http://From [employer] Bench/[facility] CITY[facility] Specimen Anatomical Collection Method Collection Time Receive d Time (Source) Location / / Volume Laterality Blood specimen 01/16/2019 7:49 AM 019 7:55 (specimen) EDT AM EDT Resulting Agency Comment Spec In Lab Danette Maxwell APRN CHEMISTRY ORDERABLES Performing Organization Address City/State/[place] [address] (ABNORMAL) pro-Brain Natriuretic Peptide (01/16/2019 7:49 AM EDT) P athologist Signature ProBNP 780 (H) <=125 pg/mL [facility] Specimen Anatomical Collection Method Collection Time Receive d Time (Source) Location / / Volume Laterality Blood specimen 01/16/2019 7:49 AM 019 7:55 (specimen) EDT AM EDT Resulting Agency Comment Spec In Lab Danette Maxwell WIRE LATHER CHEMISTRY ORDERABLES Performing Organization Address City/State/[place] [address] documented in this encounter Visit Diagnoses Diagnosis Chronic systolic heart failure Cardiomyopathy, ischemic Other specified forms of chronic ischemi c heart disease Hx of thyroid cancer Personal history of malignant neoplasm o f thyroid ASHD (arteriosclerotic heart disease) Coronary atherosclerosis of unspecified type of vessel, redding or graft MARIA VICTORIA (obstructive sleep apnea) on CPAP Obstructive sleep apnea (adult) (pediatr ic) Chronic systolic heart failure documented in this encounter Care Teams Tourist Adviser Relationship Specialty Start Date End Date Lovely Vicente MD PCP - General 04/16/[address] [place] [address] documented as of this encounter
--- OUTSIDE RECORDS SUMMARY | 2022-04-20 08:11 | XMS_ITS | Encounter Summary ---
:1945 Author Organization [facility] [place] [address] Care Team Providers Name Role Phone Lovely Vicente MD Primary Care Provider Reason for Visit Reason Comments Skin Check Encounter Details Date Type Department Care Team Description 07/06/2018 Office Visit Dermatology at Sel[facility] Garcia, Rigoberto Yarbrough (actinic keratosis); MD SHAY Quick III (seborrheic keratosis); [address] [facility] [place] [place] History of melanoma; [place] [address] Skin exam for malignant neoplasm [phone] [facility] [place], [place] [address] Social History Tobacco Use Types [...] Garcia MD Section of Dermatology [facility] documented in this encounter Plan of Treatment Upcoming Encounters Date Type Specialty Care Team Description 05/28/2022 Appointment Cardiology Zulma Dolan MD [facility] [place], [place] [address] (Wo rk) 05/28/2022 Laboratory Appointment Lab 05/28/2022 Office Visit Cardiology Zulma Dolan MD [facility] [place] [address] Liz Poole PA [facility] [place] [address] 06/10/2022 Office Visit Dermatology Laura Scherer MD [facility] DR [address]MAT [place]LOG[place], [place] [address] (Wo rk) documented as of this encounter Visit Diagnoses Diagnosis AK (actinic keratosis) Actinic keratosis SK (seborrheic keratosis) Other seborrheic keratosis History of melanoma Personal history of malignant melanoma o f skin Skin exam for malignant neoplasm Screening for malignant neoplasm of the skin documented in this encounter Care Teams Automobile Mechanic Assistant Relationship Specialty Start Date End Date Lovely Vicente MD PCP - General 04/16/[address] [place] [address] documented as of this encounter
--- OUTSIDE RECORDS SUMMARY | 2022-04-20 08:11 | XMS_ITS | Encounter Summary ---
:1945 Author Organization [facility] [place] [address] Care Team Providers Name Role Phone Lovely Vicente MD Primary Care Provider Reason for Visit Reason Comments Establish Care Atrial Fibrillation Congestive Heart Failure Cardiomyopathy Encounter Details Date Type Department Care Team Description 09/06/2019 [facility] Ischemic [facility] [place] STRANGE [address] [place], [place] CARDIOLOGY DEPT. [address] [place] [address] [phone] Social History Tobacco Use Types Packs/Day Years [...] today For any questions, call my office: [phone] To access your health care information, go to the web at: [email or web address] (you will need to register) For educational materials: [email or web address] Karel TRAMMELL.[facility], Clinical Cardiac Electrophysiology, [facility], [facility] A Healthy Heart: After Your Visit [...] least 2 servings of fish a week. [place], mackerel, mcfadden, sardines, and chunk light tuna [...] irregular heartbeat. After you call 911, the molding machine operator may tell you to chew [...] more? Visit our health information library at [email or web address] systemKaboo [email or web address]/[email or web address]. You can also view health information on Decide.com, your personal patient account. Log in or sign up today. Enter F075 in the search box to learn more about A Healthy Heart: After Your Visit. ?? [phone] [employer]. documented in this encounter Progress Notes Karel Mcelroy MD - 09/06/2019 2:20 PM EST Images from the original note were not included. Section of Cardiology/Cardiac Electrophysiology [facility] Clinical Cardiac Electrophysiology Consult Patient ID Don Fatima 1945 [id number] Don Fatima is referred to the EP clinic by Danette Maxwell APRN PhD Chief Complaint Dyspnea on exertion Ischemic cardiomyopathy History This is a 74 y.o. male following up/being seen in clinic for evaluation for ongoing anticoagulation. He has a Jznid7Tqif score of ~ 6-7. 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, can walk [...] on phone: None Gets together: None Attends denominational service: None Active member of club or [...] reviewed the ECG: sinus rhythm, 72 bpm, HI 140 ms, QRS 100 ms, QT 400 [...] EP clinic KAREL MCELROY MD Cardiac Electrophysiology [facility] T: [phone] F: [phone] 35 minutes of this 40 minute encounter were spent in counselling, as described above Cc: MD Danette Cr APRN PhD Janett Espino DPM documented in this encounter Plan of Treatment Upcoming Encounters Date Type Specialty Care Team Description 05/28/2022 Appointment Cardiology Zulma Dolan MD [facility] [place], [place] [address] (Wo rk) 05/28/2022 Laboratory Appointment Lab 05/28/2022 Office Visit Cardiology Zulma Dolan MD [facility] [place] [address] Liz Poole PA [facility] [place] [address] 06/10/2022 Office Visit Dermatology Laura Scherer MD [facility] [address] [place], [place] [address] (Wo rk) documented as [...] 446 ms MUSE SYSTEM (Bezet) Calculated P [place] 37 degrees MUSE SYSTEM Calculated R [place] -23 degrees MUSE SYSTEM Calculated T [place] 116 degrees MUSE SYSTEM INTERPRETATION Normal sinus rhythm MUSE SYSTEM Inferior infarct (cited on or before 25-JAN-2013) ST & T wave abnormality, consider anterolateral ischemia Abnormal ECG When compared with ECG of 19-AUG-2017 10:23, No significant change was found Confirmed by MD Cande, Michael ([id number]) on 09/08/2019 10:22:4 7 AM Specimen Anatomical [...] disease documented in this encounter Care Teams Global Process Owner Relationship Specialty Start Date End Date Lovely Vicente MD PCP - General 04/16/[address] [place] [address] documented as of this encounter
--- OUTSIDE RECORDS SUMMARY | 2022-04-20 08:11 | XMS_ITS | Encounter Summary ---
:1945 [place] [address] Care Team Providers Name Role Phone Lovely Vicente MD Primary Care Provider Encounter Details Date Type Department Care Team Description 08/15/2018 [facility] [place] [address] Social History Tobacco Use Types Packs/Day [...] Dolan MD [facility] er [place], [place] [address] (Wo rk) 05/28/2022 Laboratory Appointment Lab 05/28/2022 Office Visit Cardiology Zulma Dolan MD [facility] [place] [address] Liz Poole PA [facility] [place] [address] 06/10/2022 Office Visit Dermatology Laura Scherer MD [facility] ER DR TE[address] GR[address]DERMAT [place], [place] [...] [facility] LABORATORY INR 2.1 [facility] LABORATORY [...] Organization Address City/State/[place] [address] documented in this encounter Visit Diagnoses Not on filedocumented in this encounter Care Teams Database Software Technician Relationship Specialty Start Date End Date Lovely Vicente MD PCP - General 04/16/[address] [place] [address] documented as of this encounter
--- OUTSIDE RECORDS SUMMARY | 2022-04-20 08:11 | XMS_ITS | Encounter Summary ---
:1945 Author Organization [facility] [place] [address] Care Team Providers Name Role Phone Lovely Vicente MD Primary Care Provider Encounter Details Date Type Department Care Team Description 07/28/2019 Office Visit Cardiology at [facility] Danette Maxwell Chronic systolic heart failu re; [facility] A, STACIE ASHD (arteriosclerotic heart disease); Drive [facility] S/P CABG x 3; [place], [place] MARIA VICTORIA (obstructive sleep apnea) on CPAP; [phone] CARDIOLOGY Mixed hyperlipidemia [phone] [place], [place] [address] Social History Tobacco Use Types [...] in this encounter Progress Notes Danette Maxwell, ORTHOTIST/PROSTHETIST - 07/28/2019 9:40 AM EST Images from [...] regurgitation present. 07/07/2019 - 07/21/2019 Zio Patch Wire Brusher The patient had a minimum heart rate [...] K+ 4.5 today 6. Post-op atrial fibrillation [id number] (CHF, HTN, DM, vascular disease, thromboembolism) Amiodarone discontinued Continue coumadin INR managed by PCP 7. PAD 08/06/2017: Right 1st, 2nd, 3rd toe amputation 08/11/2017: Left??femoral arterial access, RLE??angiogram, Balloon angioplasty of R PT with Eleazar 2.5 x 80 10/25/2017: right popliteal-pedal bypass at [facility] 8. Hypothyrodism S/p thyroidectomy for goiter Continue Levothyroxine ?? Plan: 1. A review of the active management and working diagnosis(es) was conducted. 2. The patient's medication list was updated and new Rxs given as needed. 3. Question were answered regarding: Lab results and treatment plan going forward. Discussed the results of the Zio patch and stopping Coumadin. I have asked Mr. Fatiam to see Dr. Mcelroy in [place] to [...] advised: Refer to EP (Dr. Mcelroy in [place]) 5. Heart Failure Clinic follow up scheduled for: 3 months with proBNP and BMP Danette Maxwell APRN 07/28/2019 documented in this encounter Plan of Treatment Upcoming Encounters Date Type Specialty Care Team Description 05/28/2022 Appointment Cardiology Zulma Dolan MD [facility] [place], [place] [address] (Wo rk) 05/28/2022 Laboratory Appointment Lab 05/28/2022 Office Visit Cardiology Zulma Dolan MD [facility] [place] [address] Liz Poole PA [facility] [place] [address] 06/10/2022 Office Visit Dermatology Laura Scherer MD [facility] [address] [place], [place] [address] (Wo rk) documented as of this encounter Results (ABNORMAL) Basic Metabolic Panel (non-fasting) (07/28/2019 8:36 AM EST) P athologist Signature Glucose Lvl 153 65 - 199 [facility] mg/dL [facility] LABORATORY [...] of body mass or the acutely ill. http://[employer]/[facility] Lif[facility] Healthcarek eGFR 81 >=60 mL/min/1.73 m?? [facility] LABORATORY Comment: The eGFR was calculated using the CKD-EP I equation. As with all creatinine based estimates of kidney function, eGFR values calculated with the CKD-EPI equation are not accurate in patients wi th acute kidney failure, extremes of body mass or the acutely ill. http://[employer]/[facility] ASSOCIATIONnkf Specimen Anatomical Collection Method Collection Time Receive d Time (Source) Location / / Volume Laterality Blood specimen 07/28/2019 8:36 AM 020 8:46 (specimen) EST AM EST Resulting Agency Comment Spec In Lab Danette Maxwell APRN CHEMISTRY ORDERABLES Performing Organization Address City/State/ZIP Code Phon e Number [address] (ABNORMAL) pro-Brain Natriuretic Peptide [...] City/[facility]/[place] [address] documented in this encounter Visit Diagnoses Diagnosis Chronic systolic heart failure ASHD (arteriosclerotic heart disease) Coronary atherosclerosis of unspecified type of vessel, squaxin or graft S/P CABG x 3 Postsurgical aortocoronary bypass status MARIA VICTORIA (obstructive sleep apnea) on CPAP Obstructive sleep apnea (adult) (pediatr ic) Mixed hyperlipidemia documented in this encounter Care Teams Prepared Foods Supervisor Relationship Specialty Start Date End Date Lovely Vicente MD PCP - General 04/16/[address] [place] [address] documented as of this encounter
--- OUTSIDE RECORDS SUMMARY | 2022-04-20 08:11 | XMS_ITS | Encounter Summary ---
:1945 Author Organization [facility] [place] [address] Care Team Providers Name Role Phone Lovely Vicente MD Primary Care Provider Encounter Details Date Type Department Care Team Description 03/20/2021 Ancillary Procedure Radiology Library [place] [address] [place] [address] [phone] Social History Tobacco Use Types Packs/Day Years [...] MD [facility] er [place], [place] [address] (Wo rk) 05/28/2022 Laboratory Appointment Lab 05/28/2022 Office Visit Cardiology Zulma Dolan MD [facility] [place] [address] Liz Poole PA [facility] [place] [address] 06/10/2022 Office Visit Dermatology Lauar Scherer MD [facility] ER [address] [place], [place] [address] (Wo rk) documented as of [...] City/State/ZIP Code Phon e Number [place], [place] documented in this encounter Visit Diagnoses Not on filedocumented in this encounter Care Teams Manager Fire Relationship Specialty Start Date End Date Lovely Vicente MD PCP - General 04/16/[address] [place] [address] documented as of this encounter
--- OUTSIDE RECORDS SUMMARY | 2022-04-20 08:11 | XMS_ITS | Encounter Summary ---
:1945 Author Organization [facility] [place] [address] Care Team Providers Name Role Phone Lovely Vicente MD Primary Care Provider Reason for Referral Diagnostic Test (Routine) - Specialty Diagnoses / Procedures Referred By Contact Refer red To Contact Cardiology Diagnoses Chronic systolic heart failure Danette Maxwell APRN [facility] Non-Inv Card Lab Procedures Echocardiogram Transthoracic(Leb) [facility] [place] [phone] [place] [address] Referral ID Status Reason Start Date Expiration Visits Visits Date Requested Authorized [id number] Specialty 08/15/2018 08/15/2018 1 1 Service Requested Reason for Visit Diagnostic Test (Routine) - Specialty Diagnoses / Procedures Referred By Contact Nawaf owen To Contact Cardiology Diagnoses Chronic systolic heart failure Danette Maxwell APRN [facility] Non-Inv Card Lab Procedures Echocardiogram Transthoracic(Leb) [facility] [place] [address] [place] [address] Referral ID Status Reason Start Date Expiration Visits Visits Date Requested Authorized [id number] Specialty 08/15/2018 08/15/2018 1 1 Service Requested Encounter Details Date Type Department Care Team Description 08/15/2018 Hospital Encounter Non-Invasive Danette Maxwell Chron ic systolic Cardiology Lab Barbara Gomes APRN heart failure [facility] [place] [address] [place] [phone] [address] (Work) [phone] Social History Tobacco Use Types Packs/Day Years [...] Zulma Dolan MD [facility] [place], [place] [address] (Wo rk) 05/28/2022 Laboratory Appointment Lab 05/28/2022 Office Visit Cardiology Zulma Dolan MD [facility] [place] [address] Liz Poole PA [facility] [place] [address] 06/10/2022 Office Visit Dermatology Laura Scherer MD [facility] [address] [place], [place] [address] (Wo rk) documented as [...] Mccollum ? (Age): 1945(73y) Med Rec#: ? [id number] ?Sex: ?M ? Site Loc: ? [facility] ?Ht / Wt: ??172(cm)/81(kg) Pt. Loc: ?Echo Lab ?BSA: ?1.94 Study Date: ?? 08/15/2018 ?Pt. Type: Outpatient Tape: ? Referring: MARY ELLEN Reading: Scott Ortega ([id number]) Manager Part: Laura Sargent Diagnosis: *Chronic systolic (congestive) heart [...] E-wave Vmax ?1.2 ?m/sec ? MV deceleration fbos742.4 ? msec ? MV A-wave Vmax ?0.7 [...] ? Mid-Inferior ?Hypokinetic ? Mid-Inferoseptal ?Hypokinetic ? Cass-Septal ? Akinetic ? Cass-Anterior ? Hypokinetic ? Cass-Lateral ?Akinetic ? Cass-Inferior ? Hypokinetic ? Cass-Tip ?Akinetic ? This report has been electronically sign ed by: _ Scott Ortega M.D. ? 08/15/2018 08:17:26 Images reviewed and interpretation ver ied [facility] Cardiac Ultrasound Laboratory Procedure Note Scott Ortega MD - 08/15/2018Format ting of this note might be different from the original. Procedure: Transthoracic Echocardiogram Patient: NATALYA MCBRIDE(Age): [birth year]73y) Med Rec#: [id number] Sex: M Site Loc: [facility] Ht / Wt: 172(cm)/81(kg) Pt. Loc: Echo Lab BSA: 1.94 Study Date: 08/15/2018 Pt. Type: Outpati ent Tape: Referring: MARY ELLEN Reading: Scott Ortega ([id number]) Manager Part: Laura Sargent Diagnosis: *Chronic systolic (congestive) heart [...] MV E-wave Vmax 1.2 m/sec MV deceleration quyr462.4 msec MV A-wave Vmax 0.7 m/sec MV [...] Akinetic Mid-Posterolateral Akinetic Mid-Inferior Hypokinetic Mid-Inferoseptal Hypokinetic Cass-Septal Akinetic Cass-Anterior Hypokinetic Cass-Lateral Akinetic Cass-Inferior Hypokinetic Cass-Tip Akinetic This report has been electronically sign ed by: _ Scott Ortega M.D. 08/15/2018 08:17: 26 Images reviewed and interpretation verif ied [facility] Cardiac Ultrasound Laboratory Danette A Hans DECISION ANALYST ECHO ORDERABLES documented in this encounter [...] Routine documented in this encounter Care Teams Excel Expert Relationship Specialty Start Date End Date Lovely Vicente MD PCP - General 04/16/[address] [place] [address] documented as of this encounter
--- OUTSIDE RECORDS SUMMARY | 2022-04-20 08:11 | XMS_ITS | Encounter Summary ---
:1945 Author Organization [facility] [place] [address] Care Team Providers Name Role Phone Lovely Vicente MD Primary Care Provider Encounter Details Date Type Department Care Team Description 01/16/2019 Laboratory Appointment Lab 3L [facility] [place] [phone] Social History Tobacco Use Types Packs/Day Years [...] Dolan MD [facility] [place], [place] [address] (Wo rk) 05/28/2022 Laboratory Appointment Lab 05/28/2022 Office Visit Cardiology Zulma Dolan MD [facility] [place] [address] Liz Poole PA [facility] [place] [address] 06/10/2022 Office Visit Dermatology Laura Scherer MD [facility] ER [address] [place], [place] [address] (Wo rk) documented as of [...] athologist Signature ProBNP 780 (H) <=125 pg/mL [facility] LABORATORY Specimen Anatomical Collection Method Collection Time Receive d Time (Source) Location / / Volume Laterality Blood specimen 01/16/2019 7:49 AM 019 7:55 (specimen) EDT AM EDT Resulting Agency Comment Spec In Lab Danette Maxwell APRN CHEMISTRY ORDERABLES Performing Organization Address City/State/ZIP [place] [address] (ABNORMAL) Basic Metabolic Panel (non-fasting) (01/16/2019 7:49 AM EDT) athologist Signature Glucose Lvl 105 65 - 199 [facility] mg/dL [facility] LABORATORY Comment: [...] LABORATORY Calcium 9.2 8.5 - 10.5 mg/dL [facility] LABORATORY Estimated GFR 68 >=60 mL/min/1.73 m?? [facility] LABORATORY Comment: The eGFR was calculated using the CKD-EP I equation. As with all creatinine based estimates of kidney function, eGFR values calculated with the CKD-EPI equation are not accurate in patients wi th acute kidney failure, extremes of body mass or the acutely ill. http://[employer] Groupnkf eGFR 79 >=60 mL/min/1.73 m?? [facility] LABORATORY Comment: The eGFR was calculated using the CKD-EP I equation. As with all creatinine based estimates of kidney function, eGFR values calculated with the CKD-EPI equation are not accurate in patients wi th acute kidney failure, extremes of body mass or the acutely ill. http://[employer] Groupnkf Specimen Anatomical Collection Method Collection Time Receive d Time (Source) Location / / Volume Laterality Blood specimen 01/16/2019 7:49 AM 019 7:55 (specimen) EDT AM EDT Resulting Agency Comment Spec In Lab Danette Maxwell APRN CHEMISTRY ORDERABLES Performing Organization Address City/State/ZIP [place] [address] documented in this encounter Visit Diagnoses Diagnosis Chronic systolic heart failure documented in this encounter Care Teams Electrical Engineering Director Relationship Specialty Start Date End Date Lovely Vicente MD PCP - General 04/16/[address] [place] [address] documented as of this encounter
--- OUTSIDE RECORDS SUMMARY | 2022-04-20 08:11 | XMS_ITS | Encounter Summary ---
:1945 Author Organization [facility] [place] [address] Care Team Providers Name Role Phone Lovely Vicente MD Primary Care Provider Reason for Referral Diagnostic Test (Routine) - Closed Specialty Diagnoses / Procedures Referred By Contact Refer red To Contact Cardiology Diagnoses Chronic systolic heart failure Danette Maxwell APRN [facility] Non-Inv Card Lab Procedures Echocardiogram Transthoracic(Leb) [facility] [place] [address] [place] [address] Referral ID Status Reason Start Date Expiration Date Visits V isits Requested Authorized [id number] Closed Specialty 07/17/2019 09/14/2019 1 1 Service Requested Reason for Visit Diagnostic Test (Routine) - Closed Specialty Diagnoses / Procedures Referred By Contact Refer red To Contact Cardiology Diagnoses Chronic systolic heart failure Danette Maxwell APRN [facility] Non-Inv Card Lab Procedures Echocardiogram Transthoracic(Leb) [facility] [place] [address] [place] [address] Referral ID Status Reason Start Date Expiration Date Visits V isits Requested Authorized [id number] Closed Specialty 07/17/2019 09/14/2019 1 1 Service Requested Encounter Details Date Type Department Care Team Description 07/28/2019 Hospital Encounter Non-Invasive Chronic s ystolic heart [place] [address] Social History Tobacco Use Types Packs/Day [...] Dolan MD [facility] [place], [place] [address] (Wo rk) 05/28/2022 Laboratory Appointment Lab 05/28/2022 Office Visit Cardiology Zulma Dolan MD [facility] [place] [address] Liz Poole PA [facility] [place] [address] 06/10/2022 Office Visit Dermatology Laura Scherer MD [facility] DR [address] [place], [place] [address] (Wo rk) documented as [...] Mccollum ? (Age): 1945(74y) Med Rec#: ? [id number] ?Sex: ?M ? Site Loc: ? [facility] ?Ht / Wt: ??172(cm)/81(kg) Pt. Loc: ?Echo Lab ?BSA: ?1.94 Study Date: ?? 07/28/2019 ?Pt. Type: Outpatient Tape: ? Referring: MARY ELLEN Reading: Ifeanyi Truong ([id number]) Chute Puller: Fadumo Flanagan RDCS, FASE Diagnosis: *Chronic systolic [...] E-wave Vmax ?1 ?m/sec ? MV deceleration thht263.5 ? msec ? MV A-wave Vmax ?1 [...] ? Mid-Inferior ?Hypokinetic ? Mid-Inferoseptal ?Normal ? [place]-Septal ? Normal ? [place]-Anterior ? Hypokinetic ? [place]-Lateral ?Normal ? [place]-Inferior ? Akinetic ? [place]-Tip ?Hypokinetic ? This report has been electronically sign ed by: _ Ifeanyi Truong M.D. ? 07/28/2019 0 8:38:01 Images reviewed and interpretation verif ied [facility] Cardiac Ultrasound Laboratory Procedure Note Ifeanyi Truong MD - 07/28/2019Formatt ing of this note might be different from the original. Procedure: Transthoracic Echocardiogram Patient: NATALYA MCBRIDE(Age): [birth year]74y) Med Rec#: [id number] Sex: M Site Loc: [facility] Ht / Wt: 172(cm)/81(kg) Pt. Loc: Echo Lab BSA: 1.94 Study Date: 07/28/2019 Pt. Type: Outpati ent Tape: Referring: MARY ELLEN Reading: Ifeanyi Truong ([id number]) Chute Puller: Fadumo Flanagan [place], [facility] Diagnosis: *Chronic systolic (congestive) heart [...] MV E-wave Vmax 1 m/sec MV deceleration yywm182.5 msec MV A-wave Vmax 1 m/sec MV [...] Normal Mid-Posterolateral Normal Mid-Inferior Hypokinetic Mid-Inferoseptal Normal [place]-Septal Normal [place]-Anterior Hypokinetic [place]-Lateral Normal [place]-Inferior Akinetic [place]-Tip Hypokinetic This report has been electronically sign ed by: _ Ifeanyi Truong M.D. 07/28/2019 08:38:0 1 Images reviewed and interpretation elvie hwang [facility] Cardiac Ultrasound Laboratory Danette A Hans QUINONES [...] Routine documented in this encounter Care Teams Ab Initio Etl Developer Relationship Specialty Start Date End Date Lovely Vicente MD PCP - General 04/16/[address] [place] [address] documented as of this encounter
--- OUTSIDE RECORDS SUMMARY | 2022-04-20 08:11 | XMS_ITS | Encounter Summary ---
:1945 Author Organization [facility] [place] [address] Care Team Providers Name Role Phone Lovely Vicente MD Primary Care Provider Encounter Details Date Type Department Care Team Description 08/15/2018 Office Visit Cardiology at [facility] Danette Maxwell Chronic systolic heart failu re; [facility] A, FINANCIAL REPORTING ANALYST Cardiomyopathy, ischemic; [facility] ASCVD (arteriosclerotic card iovascular disease); [place], [place] Essential hypertension; [phone] CARDIOLOGY MARIA VICTORIA on CPAP [phone] [place], [place] [address] Social History Tobacco Use Types [...] in this encounter Progress Notes Danette Maxwell, FINANCIAL REPORTING ANALYST - 08/15/2018 9:00 AM EST Images from [...] K+ 4.6 today 6. Post-op atrial fibrillation [id number] (CHF, HTN, DM, vascular disease, thromboembolism) [...] [facility] [address] [place] [address] (Wo rk) 05/28/2022 Laboratory Appointment Lab 05/28/2022 Office Visit Cardiology Zulma Dolan MD [facility] [place] [address] Liz Poole PA [facility] [place] [address] 06/10/2022 Office Visit Dermatology Laura Scherer MD [facility] ER DR [address]MAT [place], [place] [address] (Wo rk) documented as of this encounter Results Lipid Panel (08/15/2018 8:04 AM EST) athologist Signature Chol, Total 75 mg/dL [facility] Comment: Lower Risk: <200 mg/dL Average Risk: 200-239 mg/dL Higher Risk: >dx=724 mg/dL Triglycerides 185 mg/dL [facility] Comment: Average Risk/Lower Risk: <150 mg/dL Borderline High Risk: 150-199 mg/dL High Risk: 200-499 mg/dL Very High Risk: >hh=522 mg/dL HDL 32 mg/dL [facility] Comment: Males: ?? Higher Risk: <40 mg/dL Females: ?? HIgher Risk: <50 mg/dL LDL Cholesterol 6 mg/dL [facility] Comment: Lowest Risk: <100 mg/dL Lower Risk: 100-129 mg/dL Borderline High Risk: 130-159 mg/dL High Risk: 160-189 mg/dL Very High Risk: >hr=315 mg/dL Chol/HDL Ratio 2.3 ratio [facility] Lipid Interpretation See Note [facility] Comment: Lipid management should be guided by a p atient? s ASCVD risk, goals and preferences. ACC/AHA Guidelines recommend high intens ity statin if clinical ASCVD or LDL greater than or equal to 190 mg/dL. http://Lashou.[email or web address]/PHE-RRC-Dxhqujbes Adults aged 40-75 with LDL 70-189 mg/dL should have their 10 year ASCVD risk estimated with the ACC/AHA ASCVD risk es timator http://tools.acc.org/IKERG-Jytf-Jnpahnna r/ Statin should be discussed if risk [...] Organization Address City/State/[place] [address] (ABNORMAL) Basic Metabolic Panel (non-fasting) (08/15/2018 8:04 AM EST) P athologist Signature Glucose Lvl 116 65 - 199 [facility] mg/dL [facility] Comment: [...] of body mass or the acutely ill. http://Student Loan Hero/[facility] eGFR 79 >=60 mL/min/1.73 m?? [facility] Comment: The eGFR was calculated using the CKD-EP I equation. As with all creatinine based estimates of kidney function, eGFR values calculated with the CKD-EPI equation are not accurate in patients wi th acute kidney failure, extremes of body mass or the acutely ill. http://Student Loan Hero/[facility] Specimen Anatomical Collection Method Collection Time Receive d Time (Source) Location / / Volume Laterality Blood specimen 08/15/2018 8:04 AM 019 8:20 (specimen) EST AM EST Resulting Agency Comment Spec In Lab Danette Maxwell APRN CHEMISTRY ORDERABLES Performing Organization Address City/State/ZIP Code Phon e Number [address] (ABNORMAL) pro-Brain Natriuretic Peptide (08/15/2018 8:04 AM EST) P athologist Signature ProBNP 1,797 (H) <=125 [facility] pg/mL [facility] Specimen Anatomical Collection Method Collection Time Receive d Time (Source) Location / / Volume Laterality Blood specimen 08/15/2018 8:04 AM 019 8:20 (specimen) EST AM EST Resulting Agency Comment Spec In Lab Danette Maxwell APRN CHEMISTRY ORDERABLES Performing Organization Address City/State/[place] [address] documented in this encounter Visit Diagnoses Diagnosis Chronic systolic heart failure Cardiomyopathy, ischemic Other specified forms of chronic ischemi c heart disease ASCVD (arteriosclerotic cardiovascular d isease) Unspecified cardiovascular disease Essential hypertension Unspecified essential hypertension MARIA VICTORIA on CPAP Obstructive sleep apnea (adult) (pediatr ic) documented in this encounter Care Teams Supervisor Assembly Relationship Specialty Start Date End Date Lovely Vicente MD PCP - General 04/16/15 [address] [place] [address] documented as of this encounter
--- OUTSIDE RECORDS SUMMARY | 2022-04-20 08:11 | XMS_ITS | Encounter Summary ---
:1945 Author Organization [facility] [place] [address] Care Team Providers Name Role Phone Lovely Vicente MD Primary Care Provider Encounter Details Date Type Department Care Team Description 07/28/2019 Laboratory Appointment Lab [address] [facility] [place] [id number] Social History Tobacco Use Types Packs/Day Years [...] MD [facility] er [place], [place] [address] (Wo rk) 05/28/2022 Laboratory Appointment Lab 05/28/2022 Office Visit Cardiology Zulma Dolan MD [facility] [place] [address] Liz Poole PA [facility] [place] [address] 06/10/2022 Office Visit Dermatology Laura Scherer MD [facility] [address] [place] [address] (Wo rk) documented as of this encounter [...] Address City/State/[place] [address] (ABNORMAL) Basic Metabolic Panel (non-fasting) (07/28/2019 8:36 AM EST) athologist Signature Glucose Lvl 153 65 - 199 [facility] mg/dL [facility] Comment: [...] of body mass or the acutely ill. http://Pod Inns/LightSpeed Retailnkf eGFR 81 >=60 mL/min/1.73 m?? [facility] Comment: The eGFR was calculated using the CKD-EP I equation. As with all creatinine based estimates of kidney function, eGFR values calculated with the CKD-EPI equation are not accurate in patients wi th acute kidney failure, extremes of body mass or the acutely ill. http://Pod Inns/[facility] Specimen Anatomical Collection Method Collection Time Receive d Time (Source) Location / / Volume Laterality Blood specimen 07/28/2019 8:36 AM 020 8:46 (specimen) EST AM EST Resulting Agency Comment Spec In Lab Danette Maxwell APRN CHEMISTRY ORDERABLES Performing Organization Address City/State/[place] [address] documented in this encounter Visit Diagnoses Diagnosis Chronic systolic heart failure documented in this encounter Care Teams Button Riveter Relationship Specialty Start Date End Date Lovely Vicente MD PCP - General 04/16/[address] [place] [address] documented as of this encounter
--- OUTSIDE RECORDS SUMMARY | 2022-04-20 08:11 | XMS_ITS | Encounter Summary ---
:1945 Author Organization [facility] [place] [address] Care Team Providers Name Role Phone Lovely Vicente MD Primary Care Provider Encounter Details Date Type Department Care Team Description 03/20/2021 Ancillary Procedure Radiology Library at [place] [address] [place] [address] [phone] Social History Tobacco Use Types Packs/Day Years [...] Dolan MD [facility] er [place], [place] [address] (Wo rk) 05/28/2022 Laboratory Appointment Lab 05/28/2022 Office Visit Cardiology Zulma Dolan MD [facility] [place] [address] Liz Poole PA [facility] [place] [address] 06/10/2022 Office Visit Dermatology Laura Scherer MD [facility] ER [address]MAT [place], [place] [address] (Wo rk) documented [...] Organization Address City/State/ZIP Code Phon e Number [place], [place] documented in this encounter Visit Diagnoses Not on filedocumented in this encounter Care Teams Obstetrics Scrub Nurse Relationship Specialty Start Date End Date Lovely Vicente MD PCP - General 04/16/[address] [place] [address] documented as of this encounter
--- OUTSIDE RECORDS SUMMARY | 2022-04-20 08:11 | XMS_ITS | Encounter Summary ---
:1945 [place] [address] Care Team Providers Name Role Phone Lovely Vicente MD Primary Care Provider Encounter Details Date Type Department Care Team Description 12/07/2021 Ancillary Procedure [facility] Lovely murillo MD [facility] [address] [address] [place], [place] [phone] (Wo lissa) [address] [phone] Social History Tobacco Use Types Packs/Day Years [...] [facility] [address] [place] [address] (Wo rk) 05/28/2022 Laboratory Appointment Lab 05/28/2022 Office Visit Cardiology Zulma Dolan MD [facility] [place] [address] Liz Poole PA [facility] [place] [address] 06/10/2022 Office Visit Dermatology Laura Scherer MD [facility] [address] [place], [place] [address] (Wo rk) documented as of [...] Address City/State/ZIP Code Phon e Number [place], [place] documented in this encounter Visit Diagnoses Not on filedocumented in this encounter Care Teams Whiskey Proof Reader Relationship Specialty Start Date End Date Lovely Vicente MD PCP - General 04/16/[address] [place] [address] documented as of this encounter
--- OUTSIDE RECORDS SUMMARY | 2022-04-20 08:11 | XMS_ITS | Encounter Summary ---
:1945 [place] [address] Care Team Providers Name Role Phone Lovely Vicente MD Primary Care Provider Encounter Details Date Type Department Care Team Description 07/12/2019 Office Visit Dermatology at [facility], Rigoberto Yarbrough (actinic keratosis); MD SHAY Quick III (seborrheic keratosis); [address] [facility] Multiple benign nevi; [place] [address] History of melanoma [phone] [facility] [place], [place] [address] Social History Tobacco Use Types [...] Rigoberto Garcia MD Section of Dermatology [facility] documented in this encounter Plan of Treatment Upcoming Encounters Date Type Specialty Care Team Description 05/28/2022 Appointment Cardiology Zulma Dolan MD [facility] Dr [place], [place] [address] (Wo rk) 05/28/2022 Laboratory Appointment Lab 05/28/2022 Office Visit Cardiology Zulma Dolan MD [facility] [place] [address] Liz Poole PA [facility] [place] [address] 06/10/2022 Office Visit Dermatology Laura Scherer MD [facility] DR [address] [place], [place] [address] (Wo rk) documented as of this encounter Visit Diagnoses Diagnosis AK (actinic keratosis) Actinic keratosis [place] (seborrheic keratosis) Other seborrheic keratosis Multiple benign nevi Benign neoplasm of skin, site unspecifie d History of melanoma Personal history of malignant melanoma o f skin documented in this encounter Care Teams Midlevel Provider Relationship Specialty Start Date End Date Lovely Vicente MD PCP - General 04/16/15 [facility] [address] [place] [address] documented as of this encounter
--- OUTSIDE RECORDS SUMMARY | 2022-04-20 08:12 | XMS_ITS | Encounter Summary ---
:1945 Author Organization [facility] [place] [address] Care Team Providers Name Role Phone Lovely Vicente MD Primary Care Provider Encounter Details Date Type Department Care Team Description 09/03/2017 Telephone Vascular Surgery at [facility] Ninfa Clark, [place] [address] Social History Tobacco Use Types Packs/Day [...] help with the discomfort of the change. Corrugator Machine Operator told the [facility] that I would [...] Cardiology Zulma Dolan MD [facility] [place], [place] [address] (Wo rk) 05/28/2022 Laboratory Appointment Lab 05/28/2022 Office Visit Cardiology Zulma Dolan MD [facility] [place] [address] Liz Poole PA [facility] [place] [address] 06/10/2022 Office Visit Dermatology Laura Scherer MD [facility] [address] [place], [place] [address] (Wo rk) documented as of this encounter Visit Diagnoses Not on filedocumented in this encounter Care Teams Electronic Technician Relationship Specialty Start Date End Date Lovely Vicente MD PCP - General 04/16/[address] [place] [address] [address] [facility] [address] [place] [address] documented as of this encounter
--- OUTSIDE RECORDS SUMMARY | 2022-04-20 08:12 | XMS_ITS | Encounter Summary ---
:1945 Author Organization [facility] [place] [address] Care Team Providers Name Role Phone Lovely Vicente MD Primary Care Provider Encounter Details Date Type Department Care Team Description 08/19/2017 Office Visit Vascular Surgery at [place], PAD (peripheral artery [facility] EXPERIENTIAL THERAPIST disease) [facility] [address] [place], [place] VASCULAR SURGERY [address] [place] [address] [phone] Social History Tobacco Use Types Packs/Day Years [...] Zulma Dolan MD [facility] [place], [place] [address] (Wo rk) 05/28/2022 Laboratory Appointment Lab 05/28/2022 Office Visit Cardiology Zulma Dolan MD [facility] [place] [address] Liz Poole PA [facility] [place] [address] 06/10/2022 Office Visit Dermatology Laura Scherer MD [facility] DR [address] [place], [place] [address] (Wo rk) documented as of this encounter Visit Diagnoses Diagnosis PAD (peripheral artery disease) Peripheral vascular disease, unspecified documented in this encounter Care Teams Drawer In Stitch Bonding Machine Relationship Specialty Start Date End Date Lovely Vicente MD PCP - General 04/16/[address] [place] [address] documented as of this encounter
--- OUTSIDE RECORDS SUMMARY | 2022-04-20 08:12 | XMS_ITS | Encounter Summary ---
:1945 Author Organization [facility] [place] [address] Care Team Providers Name Role Phone Lovely Vicente MD Primary Care Provider Encounter Details Date Type Department Care Team Description 11/29/2017 Laboratory Lab 3L [place] Chronic systoli c congestive heart failure; Appointment [facility] ASCVD (ar teriosclerotic cardiovascular disease); Hospital Cardiomyopathy, [place] [address] Social History Tobacco Use Types [...] [facility] er [place], [place] [address] (Wo rk) 05/28/2022 Laboratory Appointment Lab 05/28/2022 Office Visit Cardiology Zulma Dolan MD [facility] [place] [address] Liz Poole PA [facility] [place] [address] 06/10/2022 Office Visit Dermatology Laura Scherer MD [facility] ER [address] [place], [place] [address] (Wo rk) documented as [...] Signature PT 23.0 (H) 9.4 - 12.5 [facility] LABORATORY INR 2.1 [facility] [...] Address City/State/[place] [address] (ABNORMAL) Basic Metabolic Panel (non-fasting) (11/29/2017 8:22 AM EDT) P athologist Signature Glucose Lvl 217 (H) 65 - 199 [facility] mg/dL [facility]OR[facility]ORY [...] or in patients with acute kidney failure. [email or web address] [email or web address] [email or web address] [email or web address] Specimen Anatomical Collection Method Collection Time Receive d Time (Source) Location / / Volume Laterality Blood specimen 11/29/2017 8:22 AM 018 8:29 (specimen) EDT AM EDT Resulting Agency Comment Spec In Lab Danette Maxwell APRN CHEMISTRY ORDERABLES Performing Organization Address City/State/[place] [address] (ABNORMAL) pro-Brain Natriuretic Peptide (11/29/2017 8:22 AM EDT) P athologist Signature ProBNP 1,769 (H) <=125 [facility] pg/mL [facility] Specimen Anatomical Collection Method Collection Time Receive d Time (Source) Location / / Volume Laterality Blood specimen 11/29/2017 8:22 AM 018 8:29 (specimen) EDT AM EDT Resulting Agency Comment Spec In Lab Danette Maxwell APRN CHEMISTRY ORDERABLES Performing Organization Address City/State/ZIP Code Phon e Number [address] Lavender Tube HOLD (11/29/2017 8:14 AM EDT) Patholo gist Method Time Signature Lavender Hold Sample in [facility] lab. [facility] Specimen Anatomical Collection Method Collection Time Receive d Time (Source) Location / / Volume Laterality Blood specimen No Charge / 11/29/2017 8:14 AM 018 8:29 (specimen) Unknown EDT AM EDT Lovely Vicente MD HEMATOLOGY ORDERABLES Performing Organization Address City/State/[place] [address] documented in this encounter Visit Diagnoses Diagnosis Chronic systolic congestive heart failur e Chronic systolic heart failure ASCVD (arteriosclerotic cardiovascular d isease) Unspecified cardiovascular disease Cardiomyopathy, ischemic Other specified forms of chronic ischemi c heart disease documented in this encounter Care Teams Archeology Faculty Member Relationship Specialty Start Date End Date Lovely Vicente MD PCP - General 04/16/[address] [place] [address] documented as of this encounter
--- OUTSIDE RECORDS SUMMARY | 2022-04-20 08:12 | XMS_ITS | Encounter Summary ---
:1945 Author Organization [facility] [place] [address] Care Team Providers Name Role Phone Lovely Vicente MD Primary Care Provider Reason for Referral Diagnostic Test (Routine) - Closed Specialty Diagnoses / Procedures Referred By Contact Refer red To Contact Cardiology Diagnoses Ischemic cardiomyopathy Acute on chronic systolic congestive heart failure Danette Maxwell APRN [facility] Non-Inv Card Lab Procedures Echocardiogram Transthoracic(Leb) [facility] [place] [address] [place] [address] Referral ID Status Reason Start Date Expiration Date Visits V isits Requested Authorized [id number] Closed Specialty 08/30/2017 08/30/2018 1 1 Service Requested Encounter Details Date Type Department Care Team Description 08/26/2017 Office Visit Cardiology at [facility] Danette Maxwell Ischemic cardiomyopathy; [facility] STACIE Gomes Acute on chronic systolic congestive hea rt failure ; Drive [facility] ASCVD (arteriosclerotic card iovascular disease); [place], [place] PAF (paroxysmal atrial fibrillation); [phone] CARDIOLOGY PAD (peripheral artery disease) [phone] [place], [place] [address] Social History Tobacco Use Types Packs/Day Years [...] painful and swollen right foot right 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 AVELION probe was passed atraumatically after induction and [...] Zulma Dolan MD [facility] [place], [place] [address] (Wo rk) 05/28/2022 Laboratory Appointment Lab 05/28/2022 Office Visit Cardiology Zulma Dolan MD [facility] [place] [address] Liz Poole PA [facility] [place] [address] 06/10/2022 Office Visit Dermatology Laura Scherer MD [facility] DR [address] [place], [place] [address] (Wo rk) documented as of this encounter Results ECHOCARDIOGRAM COMPLETE W CONTRAST (10/07/2017 10:23 AM EDT) athologist Signature EF 45 [facility] SYSTEM Anatomical Region Laterality Modality Other Specimen (Source) Anatomical Location Collection Method / Collectio n Time Received Time / Laterality Volume 10/07/2017 Narrative 10/07/2017 11:13 AM EDT Procedure: ?Transthoracic Echocardiogram Patient: ?NATALYA Mccollum ? (Age): 1945(72y) Med Rec#: ? [id number] ?Sex: ?M ? Site Loc: ? [facility] ?Ht / Wt: ??173(cm)/82(kg) Pt. Loc: ?Echo Lab ?BSA: ?1.96 Study Date: ?? 10/07/2017 ?Pt. Type: Outpatient Tape: ? Referring: Danette Maxwell Reading: Ikre Cuevas ([id number]) Glass Frame Fitter: Yonathan Bocanegra Diagnosis: *ICD-10-PCS Ischemic cardiomyopathy (I2 [...] E-wave Vmax ?1.2 ?m/sec ? MV deceleration tleq035 ?msec ? MV A-wave Vmax ?1 ?m/sec [...] ? Mid-Inferior ?Hypokinetic ? Mid-Inferoseptal ?Hypokinetic ? Winn-Septal ? Akinetic ? Winn-Anterior ? Hypokinetic ? Winn-Lateral ?Hypokinetic ? [place]-Inferior ? Hypokinetic ? [place]-Tip ?Akinetic ? This report has been electronically sign ed by: _ Iker Cuevas M.D. ? 10/07/2017 11:12:34 Images reviewed and interpretation [facility] Cardiac Ultrasound Laboratory Procedure Note Iker Cuevas MD - 10/07/2017Formatti ng of this note might be different from the original. Procedure: Transthoracic Echocardiogram Patient: NATALYA Mccollum (Age): [birth year]72y) Med Rec#: [id number] Sex: M Site Loc: [facility] Ht / Wt: 173(cm)/82(kg) Pt. Loc: Echo Lab BSA: 1.96 Study Date: 10/07/2017 Pt. Type: Outpati ent Tape: Referring: Danette Maxwell Reading: Iker Cuevas ([id number]) Glass Frame Fitter: Yonathan Bocanegra Diagnosis: *ICD-10-PCS Ischemic cardiomyopathy (I2 [...] MV E-wave Vmax 1.2 m/sec MV deceleration truj167 msec MV A-wave Vmax 1 m/sec MV [...] Akinetic Mid-Posterolateral Hypokinetic Mid-Inferior Hypokinetic Mid-Inferoseptal Hypokinetic Winn-Septal Akinetic Winn-Anterior Hypokinetic Winn-Lateral Hypokinetic Winn-Inferior Hypokinetic Winn-Tip Akinetic This report has been electronically sign ed by: _ Iker Cuevas M.D. 10/07/2017 11:12 :34 Images reviewed and interpretation [facility] Cardiac Ultrasound Laboratory Danette Maxwell APRN ECHO ORDERABLES Basic Metabolic Panel (non-fasting) (08/26/2017 2:00 PM EST) P athologist Signature Glucose Lvl 98 65 - 199 [facility] mg/dL [facility] Comment: [...] LABORATORY Calcium 9.1 8.5 - 10.5 mg/dL [facility] Estimated GFR >60 >=60 [facility] Comment: The reported eGFR should be multiplied b y 1.2 for patients. The MDRD is not an appropriate measure o f renal function for patients with body mass extremes or in patients with acute kidney failure. http://Mydeo/DHnkdep http://Mydeo/DHMCnkf Specimen Anatomical Collection Method Collection Time Receive d Time (Source) Location / / Volume Laterality Blood specimen 08/26/2017 2:00 PM 018 2:15 (specimen) EST PM EST Resulting Agency Comment Spec In Lab Danetet Maxwell APRN CHEMISTRY ORDERABLES Performing Organization Address City/State/ZIP Code Phon e Number [address] (ABNORMAL) pro-Brain Natriuretic Peptide (08/26/2017 2:00 PM EST) P athologist Signature ProBNP 2,373 (H) <=125 [facility] RYAN pg/mL [facility] Specimen Anatomical Collection Method Collection Time Receive d Time (Source) Location / / Volume Laterality Blood specimen 08/26/2017 2:00 PM 018 2:15 (specimen) EST PM EST Resulting Agency Comment Spec In Lab Danette Maxwell APRN CHEMISTRY ORDERABLES Performing Organization Address City/State/[place] [address] documented in this encounter [...] failure documented in this encounter Care Teams Chain Splitter Relationship Specialty Start Date End Date Lovely Vicente MD PCP - General 04/16/15 [address] [place] [address] documented as of this encounter
--- OUTSIDE RECORDS SUMMARY | 2022-04-20 08:12 | XMS_ITS | Encounter Summary ---
:1945 Author Organization [facility] [place] [address] Care Team Providers Name Role Phone Lovely Vicente MD Primary Care Provider Reason for Visit Reason Comments Follow-up Encounter Details Date Type Department Care Team Description 08/19/2017 Office Visit Cardiac Surgery at [place], Jock S/P C ABG (coronary [facility], artery bypass graft) [facility] [place] CARDIOTHORACIC [address] SURGERY [phone] [place], [place] [address] Social History Tobacco Use Types [...] office. Best personal regards, Yuan [facility] MD [phone] documented in this encounter Plan of Treatment Upcoming Encounters Date Type Specialty Care Team Description 05/28/2022 Appointment Cardiology Zulma Dolan MD [facility] [place] [address] [place] [address] (Wo rk) 05/28/2022 Laboratory Appointment Lab 05/28/2022 Office Visit Cardiology Zulma Dolan MD [facility] [place] [address] Liz Poole PA [facility] [place] [address] 06/10/2022 Office Visit Dermatology Laura Scherer MD [facility] ER DR [address] [place] [address] (Wo rk) documented as of this encounter [...] 454 ms MUSE SYSTEM (Bezet) Calculated P [place] 20 degrees MUSE SYSTEM Calculated R [place] -29 degrees MUSE SYSTEM Calculated T [place] 121 degrees MUSE SYSTEM INTERPRETATION Normal sinus rhythm MUSE SYSTEM Inferior infarct (cited on or before 25-JAN-2013) Anterior 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) T wave abnormality, consider lateral ischemia Abnormal ECG When compared with ECG of 06-AUG-2017 12:37, No signif icant change was found Confirmed by MD Luci, Taurus Braun ([id number]) on 08/19/2017 1 0:37:38 PM Specimen Anatomical [...] status documented in this encounter Care Teams Car Sander Relationship Specialty Start Date End Date Lovely Vicente MD PCP - General 04/16/[address] [place] [address] documented as of this encounter
--- OUTSIDE RECORDS SUMMARY | 2022-04-20 08:12 | XMS_ITS | Encounter Summary ---
:1945 Author Organization [facility] [place] [address] Care Team Providers Name Role Phone Lovely Vicente MD Primary Care Provider Reason for Referral Diagnostic Test (Routine) - Closed Specialty Diagnoses / Procedures Referred By Contact Refer red To Contact Cardiology Diagnoses Ischemic cardiomyopathy Acute on chronic systolic congestive heart failure Danette Maxwell APRN [facility] Non-Inv Card Lab Procedures Echocardiogram Transthoracic(Leb) [facility] [place] [address] [place] [address] Referral ID Status Reason Start Date Expiration Date Visits V isits Requested Authorized [id number] Closed Specialty 08/30/2017 08/30/2018 1 1 Service Requested Reason for Visit Diagnostic Test (Routine) - Closed Specialty Diagnoses / Procedures Referred By Contact Refer red To Contact Cardiology Diagnoses Ischemic cardiomyopathy Acute on chronic systolic congestive heart failure Danette Maxwell APRN [facility] Non-Inv Card Lab Procedures Echocardiogram Transthoracic(Leb) [facility] [place] [address] [place] [address] Referral ID Status Reason Start Date Expiration Date Visits V isits Requested Authorized [id number] Closed Specialty 08/30/2017 08/30/2018 1 1 Service Requested Encounter Details Date Type Department Care Team Description 10/07/2017 Hospital Encounter Non-Invasive Ischemic cardiomyopathy; Cardiology Lab Barbara Craig on chronic systolic congest[place] [address] Social History Tobacco Use Types Packs/Day [...] Description 05/28/2022 Appointment Cardiology Zulma Dolan MD [facility] Medical [facility] [address] [place], [place] [address] (Wo rk) 05/28/2022 Laboratory Appointment Lab 05/28/2022 Office Visit Cardiology Zulma Dolan MD [facility] [place] [address] Liz Poole PA [facility] [place] [address] 06/10/2022 Office Visit Dermatology Laura Scherer MD [facility] [address] [place], [place] [address] (Wo [...] Mccollum ? (Age): 1945(72y) Med Rec#: ? [id number] ?Sex: ?M ? [place] Loc: ? [facility] ?Ht / Wt: ??173(cm)/82(kg) Pt. Loc: ?Echo Lab ?BSA: ?1.96 Study Date: ?? 10/07/2017 ?Pt. Type: Outpatient Tape: ? Referring: Danette Maxwell Reading: Iker Cuevas ([id number]) Cash Management Officer: Yonathan Bocanegra Diagnosis: *ICD-10-PCS Ischemic cardiomyopathy (I2 [...] E-wave Vmax ?1.2 ?m/sec ? MV deceleration [id number] ?msec ? MV A-wave Vmax ?1 ?m/sec [...] ? Mid-Inferior ?Hypokinetic ? Mid-Inferoseptal ?Hypokinetic ? [place]-Septal ? Akinetic ? [place]-Anterior ? Hypokinetic ? [place]-Lateral ?Hypokinetic ? [place]-Inferior ? Hypokinetic ? [place]-Tip ?Akinetic ? This report has been electronically sign ed by: _ Iker Cuevas M.D. ? 10/07/2017 11:12:34 Images reviewed and interpretation verif ied [facility] Cardiac Ultrasound Laboratory Procedure Note Iker Cuevas MD - 10/07/2017Formatti ng of this note might be different from the original. Procedure: Transthoracic Echocardiogram Patient: NATALYA MCBRIDE(Age): [birth year]72y) Med Rec#: [id number] Sex: M [place] [facility] Ht / Wt: 173(cm)/82(kg) Pt. Loc: Echo Lab BSA: 1.96 Study Date: 10/07/2017 Pt. Type: Outpati ent Tape: Referring: Danette Maxwell Reading: Iker Cuevas ([id number]) Cash Management Officer: Yonathan Bocanegra Diagnosis: *ICD-10-PCS Ischemic cardiomyopathy (I2 [...] MV E-wave Vmax 1.2 m/sec MV deceleration [id number] msec MV A-wave Vmax 1 m/sec MV [...] Akinetic Mid-Posterolateral Hypokinetic Mid-Inferior Hypokinetic Mid-Inferoseptal Hypokinetic [place]-Septal Akinetic [place]-Anterior Hypokinetic [place]-Lateral Hypokinetic [place]-Inferior Hypokinetic [place]-Tip Akinetic This report has been electronically sign ed by: _ Iker Cuevas M.D. 10/07/2017 11:12 :34 Images reviewed and interpretation elvie hwang [facility] Cardiac Ultrasound Laboratory Danette Maxwell [...] Routine documented in this encounter Care Teams Retention Representative Relationship Specialty Start Date End Date Lovely Vicente MD PCP - General 04/16/[address] [place] [address] documented as of this encounter
--- OUTSIDE RECORDS SUMMARY | 2022-04-20 08:12 | XMS_ITS | Encounter Summary ---
:1945 Author Organization [facility] [place] [address] Care Team Providers Name Role Phone Lovely Vicente MD Primary Care Provider Encounter Details Date Type Department Care Team Description 09/16/2017 Hospital [place] [address] Social History Tobacco Use Types Packs/Day [...] Cardiology Zulma Dolan MD [facility] [place], [place] [address] (Wo rk) 05/28/2022 Laboratory Appointment Lab 05/28/2022 Office Visit Cardiology Zulma Dolan MD [facility] [place] [address] Liz Poole PA [facility] [place] [address] 06/10/2022 Office Visit Dermatology Laura Scherer MD [facility] [address] [place], [place] [address] (Wo rk) documented as of this encounter Procedures Procedure Name Priority Date/Time Associated Diagnosis Comme [facility] SURGICAL PATHOLOGY Routine 09/16/2017 7:28 AM Res ults for this REPORT EST procedure are i n the results section. documented in this encounter Results Surgical Pathology Report (09/16/2017 7:28 AM EST) Component Value Ref Test Analysis Performed At [facility] Method Time Signature Surgical [id number] ? Location: [facility] Pathology [facility] Report The signing pathologist has (i) examined [...] [facility] [place] Dept. [place], [place], [place] CLINICAL INFORMATION Specimen Submitted: A - [...] Organization Address City/State/[place] [address] documented in this encounter Visit Diagnoses Not on filedocumented in this encounter Care Teams Cesspool Cleaner Relationship Specialty Start Date End Date Lovely Vicente MD PCP - General 04/16/[address] [place] [address] documented as of this encounter
--- OUTSIDE RECORDS SUMMARY | 2022-04-20 08:12 | XMS_ITS | Encounter Summary ---
:1945 Author Organization [facility] [place] [address] Care Team Providers Name Role Phone Lovely Vicente MD Primary Care Provider Encounter Details Date Type Department Care Team Description 10/05/2017 Unscheduled Cardiology at [facility] [place] Sin PATIENT NOT SEEN Encounter [facility] Tamiko Martinez MD [facility] [address] CARDIOLOGY DEPT [phone] [place] [address] Social History Tobacco Use Types Packs/Day Years [...] Dolan MD [facility] [address] [place], [place] [address] (Wo rk) 05/28/2022 Laboratory Appointment Lab 05/28/2022 Office Visit Cardiology Zulma Dolan MD [facility] [place] [address] Liz Poole PA [facility] [place] [address] 06/10/2022 Office Visit Dermatology Laura Scherer MD [facility] [address] [place], [place] [address] (Wo rk) documented as of this encounter Visit Diagnoses Diagnosis DH PATIENT NOT SEEN documented in this encounter Care Teams Roller Repairer Relationship Specialty Start Date End Date Lovely Vicente MD PCP - General 04/16/[address] [place] [address] documented as of this encounter
--- OUTSIDE RECORDS SUMMARY | 2022-04-20 08:12 | XMS_ITS | Encounter Summary ---
:1945 Author Organization [facility] [place] [address] Care Team Providers Name Role Phone Lovely Vicente MD Primary Care Provider Encounter Details Date Type Department Care Team Description 11/29/2017 Hospital Encounter Vascular Lab at [facility] PAD (peripheral [facility], RVT artery [facility]) [place] [address] Social History Tobacco Use Types Packs/Day Years [...] Dolan MD [facility] [address] [place], [place] [address] (Wo rk) 05/28/2022 Laboratory Appointment Lab 05/28/2022 Office Visit Cardiology Zulma Dolan MD [facility] [place] [address] Liz Poole PA [facility] [place] [address] 06/10/2022 Office Visit Dermatology Laura Scherer MD [facility] [address] [place], [place] [address] (Wo rk) documented as of [...] Department: Vascular Surgery Lab VASCUBASE Report Patient: [id number] (DON HOANG) CPT: 79648 ICD10: I72.4;I73.9 Referring Physician: DANETTE MAXWELL ?? [...] documented in this encounter Care Teams Deck Scaler Relationship Specialty Start Date End Date Lovely Vicente MD PCP - General 04/16/[address] [place], [place] [address]Y [facility] [address] [place] [address] documented as of this encounter
--- OUTSIDE RECORDS SUMMARY | 2022-04-20 08:12 | XMS_ITS | Encounter Summary ---
:1945 Author Organization [facility] [place] [address] Care Team Providers Name Role Phone Lovely Vicente MD Primary Care Provider Encounter Details Date Type Department Care Team Description 08/30/2017 [facility] ischemia [facility] [address] [place], [place] VASCULAR SURGERY [address] [place] [address] [phone] Social History Tobacco Use Types Packs/Day Years [...] Smith MD - 08/30/2017 2:00 PM EST [facility] heart staff: Patient returns. He is doing well [...] [facility] Dr [place], [place] [address] (Wo rk) 05/28/2022 Laboratory Appointment Lab 05/28/2022 Office Visit Cardiology Zulma Dolan MD [facility] [place] [address] Liz Poole PA [facility] [place] [address] 06/10/2022 Office Visit Dermatology Laura Scherer MD [facility] [address] [place], [place] [address] (Wo rk) documented as of this encounter Visit Diagnoses Diagnosis Critical lower limb ischemia Unspecified circulatory system disorder documented in this encounter Care Teams Strategic Alliances Manager Relationship Specialty Start Date End Date Lovely Vicente MD PCP - General 04/16/[address] [place] [address] documented as of this encounter
--- OUTSIDE RECORDS SUMMARY | 2022-04-20 08:12 | XMS_ITS | Encounter Summary ---
:1945 Author Organization [facility] [place] [address] Care Team Providers Name Role Phone Lovely Vicente MD Primary Care Provider Encounter Details Date Type Department Care Team Description 08/26/2017 Hospital Encounter Vascular Lab at [facility], Athero embolism of foot, right; [place], [place] Delayed surgi nusrat wound healing, [place] [address] Social History Tobacco Use Types Packs/Day Years [...] Zulma Dolan MD [facility] [address] [place], [place] [address] (Wo rk) 05/28/2022 Laboratory Appointment Lab 05/28/2022 Office Visit Cardiology Zulma Dolan [place] [address] Liz Poole PA [facility] [place] [address] 06/10/2022 Office Visit Dermatology Laura Scherer MD [facility] [address] [place], [place] [address] (Wo rk) documented [...] [facility] Range Method Time Signature VB Text Department: Vascular Surgery Lab VASCUBASE Report Patient: [id number] (DON HOANG) CPT: 07895 ICD10: T81.89XA;I75.021 Referring Physician: ELVRE BLOOM ?? Indications: S/P right 1st, 2nd, [...] encounter documented in this encounter Care Teams Toll Operator Relationship Specialty Start Date End Date Lovely Vicente MD PCP - General 04/16/[address] [place] [address] documented as of this encounter
--- OUTSIDE RECORDS SUMMARY | 2022-04-20 08:12 | XMS_ITS | Encounter Summary ---
:1945 Author Organization [facility] [place] [address] Care Team Providers Name Role Phone Lovely Vicente MD Primary Care Provider Reason for Visit Reason Onset Date Comments Other 11/11/2017 Please call [facility] Encounter Details Date Type Department Care Team Description 11/11/2017 Telephone Cardiology at [facility] Danette Maxwell, Other (Please call [facility] CHARGING BOARD OPERATOR [facility] ) [place] [address] CARDIOLOGY [place], [place] [address] (Wo rk) Social [...] Zulma Dolan MD [facility] [address] [place], [place] [address] (Wo rk) 05/28/2022 Laboratory Appointment Lab 05/28/2022 Office Visit Cardiology Zulma Dolan MD [facility] [place] [address] Liz Poole PA [facility] [place] [address] 06/10/2022 Office Visit Dermatology Laura Scherer MD [facility] [address] [place], [place] [address] (Wo rk) documented as of this encounter Visit Diagnoses Not on filedocumented in this encounter Care Teams Wheat Grower Relationship Specialty Start Date End Date Lovely Vicente MD PCP - General 04/16/15 [facility] [address] [place] [address] documented as of this encounter
--- OUTSIDE RECORDS SUMMARY | 2022-04-20 08:12 | XMS_ITS | Encounter Summary ---
:1945 Author Organization [facility] [place] [address] Care Team Providers Name Role Phone Lovely Vicente MD Primary Care Provider Encounter Details Date Type Department Care Team Description 08/25/2017 Telephone Pain Management at [place], [place] [address] Social History Tobacco Use Types Packs/Day [...] Management Center Preauthorization Request Patient: Don Fatima [id number] Fax received from [employer] denying prior authorization for Lidocaine Patches prescribed by Barbra Soares APRN. RX insurance plan: [employer] RX insurance telephone: [phone] Patient Diagnosis: right foot pain secondary to PVD and ischemia ? Previous medications attempted: Tylenol, Tramadol, Dilaudid Authorization/Reference number: [id number] _x_ denied, provider and patient informed _x_ appeal initiated by provider, patient informed [place] Rodrigez, RN documented in this encounter Plan of Treatment Upcoming Encounters Date Type Specialty Care Team Description 05/28/2022 Appointment Cardiology Zulma Dolan MD [facility] [place], [place] [address] (Wo rk) 05/28/2022 Laboratory Appointment Lab 05/28/2022 Office Visit Cardiology Zulma Dolan MD [facility] [place] [address] Liz Poole PA [facility] [place] [address] 06/10/2022 Office Visit Dermatology Laura Scherer MD [facility] [address] [place], [place] [address] (Wo rk) documented as of this encounter Visit Diagnoses Not on filedocumented in this encounter Care Teams Relief Worker Relationship Specialty Start Date End Date Lovely Vicente MD PCP - General 04/16/[address] [place] [address] documented as of this encounter
--- OUTSIDE RECORDS SUMMARY | 2022-04-20 08:12 | XMS_ITS | Encounter Summary ---
:1945 Author Organization [facility] [place] [address] Care Team Providers Name Role Phone Lovely Vicente MD Primary Care Provider Reason for Referral Consultation (Routine) - Specialty Diagnoses / Procedures Referred By Contact Refer red To Contact [facility] Diagnoses Atheroembolism of foot, right Delayed surgical wound healing, subsequent encounter Aurelia Rivera PA [address] [facility] [address] Referral ID Status Reason Start Date Expiration Date Visits V isits Requested Authorized [id number] Consult, 09/08/2017 03/07/2018 1 1 Test & Treat Reason for Visit Reason Comments Wound Check My foot hurts Encounter Details Date Type Department Care Team Description 09/07/2017 Office Visit Vascular Surgery at MiguelAurelia PA Atheroembolism of foot, right; [facility] 100 [facility] Delayed surgical wound healing, subseque nt encounter [facility] [place] [phone] Social History Tobacco Use Types Packs/Day Years [...] at home for VAC dressing changes from [facility]. Since his last visit his [...] Mcknight MD at [facility] OR Social Hx: Social History [...] Zulma Dolan MD [facility] [place], [place] [address] (Wo rk) 05/28/2022 Laboratory Appointment Lab 05/28/2022 Office Visit Cardiology Zulma Dolan MD [facility] [place] [address] Liz Poole PA [facility] [place] [address] 06/10/2022 Office Visit Dermatology Laura Scherer MD [facility] DR TE[address] GR-DERMAT [place]LOGY [place], [place] [address] (Wo rk) Scheduled Referrals Name Type Priority Associated Diagnoses Order S chedule Referral to Wound Outpatient Referral Routine Atheroembolism o f foot, Ordered: Clinic right 09/08/2017 Delayed surgical wound healing, subsequent encounter documented as of this encounter Visit Diagnoses Diagnosis Atheroembolism of foot, right Delayed surgical wound healing, subseque nt encounter documented in this encounter Care Teams Insurance Solicitor Relationship Specialty Start Date End Date Lovely Vicente MD PCP - General 04/16/[address] [facility] [place] [address] documented as of this encounter
--- OUTSIDE RECORDS SUMMARY | 2022-04-20 08:12 | XMS_ITS | Encounter Summary ---
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 [...] by Dr. Espino On IV antibiotics at [facility] Today: Mr. Fatima is accompanied by [...] see Dr. Bains well at [facility] and follow his wound on his right lower extremity. And she will continue to direct antibiotic treatment. Ihave asked that the echocardiogram results be faxed to Dr. Zurita at [facility]. 1. ASCVD Continue ASA, BB and [...] [facility] Currently receiving [facility] antibiotics at [facility] ? Plan: 1. A review of [...] Dolan MD [facility] [address] [place] [address] (Wo rk) 05/28/2022 Laboratory Appointment Lab 05/28/2022 Office Visit Cardiology Zulma Dolan MD [facility] [place] [address] Liz Poole PA [facility] [place] [address] 06/10/2022 Office Visit Dermatology Laura Scherer MD [facility] [address] TEJA GR-DERMAT OLOGY [place], [place] [address] (Wo rk) documented as of this encounter Results (ABNORMAL) Basic Metabolic Panel (non-fasting) (10/07/2017 8:48 AM EDT) athologist Signature Glucose Lvl 99 65 - 199 [facility] mg/dL [facility] LABORATORY [...] Calcium 8.4 (L) 8.5 - 10.5 mg/dL [facility] LABORATORY Estimated GFR >60 >=60 [facility] LAB[facility] Comment: The reported eGFR should be multiplied b y 1.2 for patients. The MDRD is not an appropriate measure o f renal function for patients with body mass extremes or in patients with acute kidney failure. http://Forward Talent.Accupal/DHnkdep http://Carmine/DHMCnkf Specimen Anatomical Collection Method Collection Time Receive d Time (Source) Location / / Volume Laterality Blood specimen 10/07/2017 8:48 AM 018 8:50 (specimen) EDT AM EDT Resulting Agency Comment Spec In Lab Danette Maxwell APRN CHEMISTRY ORDERABLES Performing Organization Address City/State/[place] [address] (ABNORMAL) pro-Brain Natriuretic Peptide (10/07/2017 8:48 AM EDT) P athologist Signature ProBNP 1,170 (H) <=125 [facility] pg/mL [facility] LABORATORY Specimen Anatomical Collection Method Collection Time Receive d Time (Source) Location / / Volume Laterality Blood specimen 10/07/2017 8:48 AM 018 8:50 (specimen) EDT AM EDT Resulting Agency Comment Spec In Lab Danette Maxwell APRN CHEMISTRY ORDERABLES Performing Organization Address City/State/[place] [address] documented in this encounter Visit Diagnoses Diagnosis Chronic systolic heart failure S/P CABG x 3 Postsurgical aortocoronary bypass status On amiodarone therapy Atrial fibrillation, unspecified type ASCVD (arteriosclerotic cardiovascular d isease) Unspecified cardiovascular disease documented in this encounter Care Teams Channel Supervisor Relationship Specialty Start Date End Date Lovely Vicente MD PCP - General 04/16/[address] [place] [address] documented as of this encounter
--- OUTSIDE RECORDS SUMMARY | 2022-04-20 08:12 | XMS_ITS | Encounter Summary ---
:1945 Author Organization [place] [address] Care Team Providers Name Role Phone Lovely Vicente MD Primary Care Provider Encounter Details Date Type Department Care Team Description 10/05/2017 Telephone Cardiology at [facility] Tamiko Sin MD [facility] [place] [address] CARDIOLOGY DEPT [phone] [place], [place] [address] (Wo rk) Social History Tobacco [...] [facility] er [address] [place] [address] (Wo rk) 05/28/2022 Laboratory Appointment Lab 05/28/2022 Office Visit Cardiology Zulma Dolan MD [facility] [place] [address] Liz Poole PA [facility] [place] [address] 06/10/2022 Office Visit Dermatology Laura Scherer MD [facility] ER DR TEJA GR[address]DERMAT [place], [place] [address] (Wo rk) documented as of this encounter Visit Diagnoses Not on filedocumented in this encounter Care Teams Public Health Administrator Relationship Specialty Start Date End Date Lovely Vicente MD PCP - General 04/16/[address] [place] [address] documented as of this encounter
--- OUTSIDE RECORDS SUMMARY | 2022-04-20 08:12 | XMS_ITS | Encounter Summary ---
:1945 Author Organization [facility] [place] [address] Care Team Providers Name Role Phone Lovely Vicente MD Primary Care Provider Encounter Details Date Type Department Care Team Description 08/19/2017 Hospital Encounter XRay at [facility] Martha Teague, S/P CABG x [address] [facility] [place] [address] [place] [address] RD [phone] [facility] [place], [place] [address] (Wo rk) Social History [...] MD [facility] [place], [place] [address] (Wo rk) 05/28/2022 Laboratory Appointment Lab 05/28/2022 Office Visit Cardiology Zulma Dolan MD [place] [address] Liz Poole PA [facility] [place] [address] 06/10/2022 Office Visit Dermatology Laura Scherer MD [facility] [address] TEJA GR-DERMAT OLOGY [place], [place] [address] (Wo rk) documented as [...] 2017 EXAMINATION: XR CHEST PA AND [facility] CLINICAL HISTORY: CABG x 3 TECHNIQUE: PA [...] documented in this encounter Care Teams Senior Manager Asset Protection Relationship Specialty Start Date End Date Lovely Vicente MD PCP - General 04/16/[address] [place], [place] [address]Y [facility] 1 [place] [address] documented as of this encounter
--- OUTSIDE RECORDS SUMMARY | 2022-04-20 08:12 | XMS_ITS | Encounter Summary ---
:1945 Author Organization [facility] [place] [address] Care Team Providers Name Role Phone Lovely Vicente MD Primary Care Provider Encounter Details Date Type Department Care Team Description 09/06/2017 Orders Only Vascular Surgery at [facility] Ninfa Clark, [facility] [place] [address] Social History Tobacco Use Types Packs/Day [...] MD [facility] er [place], [place] [address] (Wo rk) 05/28/2022 Laboratory Appointment Lab 05/28/2022 Office Visit Cardiology Zulma Dolan [place] [address] Liz Poole PA [facility] [place] [address] 06/10/2022 Office Visit Dermatology Laura Scherer MD [facility] [address] TEJA GR[address]DERMAT [place], [place] [address] (Wo rk) documented as of this encounter Visit Diagnoses Not on filedocumented in this encounter Care Teams Entry Level Installation Technician Relationship Specialty Start Date End Date Lovely Vicente MD PCP - General 04/16/[address] [place] [address] documented as of this encounter
--- OUTSIDE RECORDS SUMMARY | 2022-04-20 08:12 | XMS_ITS | Encounter Summary ---
:1945 Author Organization [facility] [place] [address] Care Team Providers Name Role Phone Lovely Vicente MD Primary Care Provider Reason for Visit Reason Onset Date Comments VNA Calls 08/30/2017 Encounter Details Date Type Department Care Team Description 08/30/2017 Telephone Vascular Surgery at [facility] Cora Reid RN VNA Calls [facility] [place] [address] Social History Tobacco Use Types Packs/Day [...] 08/30/2017 11:16 AM EST Caller: Alfonso at [facility] [phone] Reason for call: Changing his wound vac [...] Alfonso who had been in contact [facility] who advised him [...] Cardiology Zulma Dolan MD [facility] [address] [place], [place] [address] (Wo rk) 05/28/2022 Laboratory Appointment Lab 05/28/2022 Office Visit Cardiology Zulma Dolan MD [facility] [place] [address] Liz Poole PA [facility] [place] [address] 06/10/2022 Office Visit Dermatology Laura Scherer MD [facility] DR TEJA GR-DERMAT OGY [place], [place] [address] (Wo rk) documented as of this encounter Visit Diagnoses Not on filedocumented in this encounter Care Teams Correctional Counselor/Case Manager Relationship Specialty Start Date End Date Lovely Vicente MD PCP - General 04/16/[address] [place] [address] documented as of this encounter
--- OUTSIDE RECORDS SUMMARY | 2022-04-20 08:12 | XMS_ITS | Encounter Summary ---
:1945 Author Organization [facility] [place] [address] Care Team Providers Name Role Phone Lovely Vicente MD Primary Care Provider Encounter Details Date Type Department Care Team Description 10/07/2017 Laboratory Appointment Lab 3L [facility] [place] [address] Social History Tobacco Use Types Packs/Day Years [...] MD [facility] [place], [place] [address] (Wo rk) 05/28/2022 Laboratory Appointment Lab 05/28/2022 Office Visit Cardiology Zulma Dolan [place] [facility] [address] Liz Poole PA [facility] [place] [address] 06/10/2022 Office Visit Dermatology Laura Scherer MD [facility] ER DR TEJA GR-DERMAT ENIDReal [facility] [place], [place] Amy (Wo rk) documented as of [...] Lvl 99 65 - 199 [facility] mg/dL [facility] LABORATORY [...] or in patients with acute kidney failure. http://Enomaly.Kaos Solutions/DHnkdep http://Enomaly.Kaos Solutions/DHMCnkf Specimen Anatomical Collection Method Collection Time Receive d Time (Source) Location / / Volume Laterality Blood specimen 10/07/2017 8:48 AM 018 8:50 (specimen) EDT AM EDT Resulting Agency Comment Spec In Lab Danette Maxwell TECHNICAL SALES REPRESENTATIVES CHEMISTRY ORDERABLES Performing Organization Address City/[facility]/ZIP Code Phon e Number [address] (ABNORMAL) pro-Brain Natriuretic Peptide (10/07/2017 8:48 AM EDT) athologist Signature ProBNP 1,170 (H) <=125 [facility] pg/mL [facility] LABORATORY Specimen Anatomical Collection Method Collection Time Receive d Time (Source) Location / / Volume Laterality Blood specimen 10/07/2017 8:48 AM 018 8:50 (specimen) EDT AM EDT Resulting Agency Comment Spec In Lab Danette A Hans QUINONES CHEMISTRY ORDERABLES Performing Organization Address City/State/[place] [address] documented in this encounter Visit Diagnoses Diagnosis Chronic systolic heart failure documented in this encounter Care Teams Cigar Tobacco Rehandler Relationship Specialty Start Date End Date Lovely Vicente MD PCP - General 04/16/[address] [place] [address] documented as of this encounter
--- OUTSIDE RECORDS SUMMARY | 2022-04-20 08:12 | XMS_ITS | Encounter Summary ---
:1945 Author Organization [facility] [place] [address] Care Team Providers Name Role Phone Lovely Vicente MD Primary Care Provider Reason for Visit Reason Comments Follow-up I'm having trouble with the VAC Encounter Details Date Type Department Care Team Description 08/26/2017 Office Visit Vascular Surgery at [facility] STEPHANIE Mercado Atheroembolism of foot, right; [facility] [address] Delayed surgical wound healing, initial encounter; [facility] VASCULAR SURG YEHUDA Acute on chronic systolic congestive hea rt failure ; [place], [place] [address] [phone] Social History Tobacco Use Types Packs/Day Years [...] home and into the care of the [facility]. However, since discharge from [facility] he has had some [...] [place] [facility] ??? PRO AMPUTATION FOOT, TRANSMETATARSAL Right 08/09/2017 AMPUTATION, TRANSMETATARSAL (WRVU 12.71) performed by Yonathan Smith MD at [facility] ??? PRO DRESSING CHANGE UNDER ANESTHESIA Right 08/11/2017 (MSURG) DRESSING CHANGE (FOR OTHER THAN IVAN) UNDER ANES. (WRVU 0.86) performed by Lamar Smith MD at [facility] ??? PRO ENDOSCOPY W/VIDEO-ASST VEIN HARVEST, CABG Right 07/07/2017 ENDOSCOPIC HARVEST VEIN(S) FOR CABG (WRVU 0.31) performed by Yuan Retana MD at [facility] ??? PRO THYROIDECTOMY 03/28/2013 THYROIDECTOMY, TOTAL OR COMPLETE performed by Manny Mcknight MD at [facility] Social Hx: Social History Substance [...] Zulma Dolan MD [facility] [place], [place] [address] (Wo rk) 05/28/2022 Laboratory Appointment Lab 05/28/2022 Office Visit Cardiology Zulma Dolan MD [facility] [place] [address] Liz Poole PA [facility] [place] [address] 06/10/2022 Office Visit Dermatology Laura Scherer MD [facility] DR [address]DER[address] OGY [place], [place] [address] (Wo rk) documented as of [...] Department: Vascular Surgery Lab VASCUBASE Report Patient: [id number] (GREGORY FATIMA) CPT: 87551 ICD10: T81.89XA;I75.021 Referring Physician: ARIK CLEMENT ?? [...] 98 65 - 199 [facility] mg/dL [facility] LABORATORY Comment: Diabetes: >=200 mg/dL plus symp toms BUN 20 10 - 20 mg/dL [facility] LABORATORY Creatinine 1.17 0.80 - 1.50 mg/dL [facility] LABORATORY [...] 15 mmol/L [facility] LABORATORY Calcium 9.1 8.5 - 10.5 mg/dL [facility] LABORATORY Estimated GFR >60 >=60 [facility] LABORATORY Comment: The reported eGFR should be multiplied b y 1.2 for patients. The MDRD is not an appropriate measure o f renal function for patients with body mass extremes or in patients with acute kidney failure. http://AdexLink/DHnkdep http://AdexLink/DHMCnkf Specimen Anatomical Collection Method Collection Time Receive d Time (Source) Location / / Volume Laterality Blood specimen 08/26/2017 2:00 PM 018 2:15 (specimen) EST PM EST Resulting Agency Comment Spec In Lab Danette Maxwell PROFESSOR OF COMMUNICATION CHEMISTRY ORDERABLES Performing Organization Address City/[facility]/ZIP Code Phon e Number [address] (ABNORMAL) pro-Brain Natriuretic Peptide (08/26/2017 2:00 PM EST) P athologist Signature ProBNP 2,373 (H) <=125 [facility] pg/mL [facility] LABORATORY Specimen Anatomical Collection Method Collection Time Receive d Time (Source) Location / / Volume Laterality Blood specimen 08/26/2017 2:00 PM 018 2:15 (specimen) EST PM EST Resulting Agency Comment Spec In Lab Danette A Happy STACIE CHEMISTRY ORDERABLES Performing Organization Address City/[facility] [place] [address] documented in this encounter Visit Diagnoses Diagnosis Atheroembolism of foot, right Delayed surgical wound healing, initial encounter Acute on chronic systolic congestive hea rt failure Acute on chronic systolic heart failure Ischemic cardiomyopathy Other specified forms of chronic ischemi c heart disease documented in this encounter Care Teams Pbx Technician Relationship Specialty Start Date End Date Lovely Vicente MD PCP - General 04/16/[address] [place] [address] documented as of this encounter
--- OUTSIDE RECORDS SUMMARY | 2022-04-20 08:12 | XMS_ITS | Encounter Summary ---
:1945 Author Organization [facility] [place] [address] Care Team Providers Name Role Phone Lovely Vicente MD Primary Care Provider Encounter Details Date Type Department Care Team Description 11/29/2017 Office Visit Cardiology at [facility] Annette Maxwell Chronic systolic congestive heart failure; [facility] A, ATMOSPHERIC PHYSICIST ASCVD (arteriosclerotic cardiovascular d isease); [facility] Cardiomyopathy, ischemic; [place], [place] PAD (peripheral artery disease) [phone] CARDIOLOGY [phone] [place], [place] [address] Social History Tobacco Use Types [...] in this encounter Progress Notes Annette Maxwell, ATMOSPHERIC PHYSICIST - 11/29/2017 9:20 AM EDT ID and [...] painful and swollen right foot right d/t 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 Plan: 1. [...] Cardiology Zulma Dolan MD [facility] [place], [place] [address] (Wo rk) 05/28/2022 Laboratory Appointment Lab 05/28/2022 Office Visit Cardiology Zulma Dolan [place] [address] Liz Poole PA [facility] [place] [address] 06/10/2022 Office Visit Dermatology Laura Scherer MD [facility] DR TEJA GR-DERMAT [place], [place] [address] (Wo rk) documented as of this encounter Results Arterial Duplex Leg, Unil (11/29/2017 10:32 AM EDT) Component Value Ref Test Analysis Performed At [facility] Range Method Time Signature VB Text Department: Vascular Surgery Lab VASCUBASE Report Patient: [id number] (GREGORY HOANG) CPT: 66562 ICD10: I72.4;I73.9 Referring Physician: ANNETTE MAXWELL ?? [...] Glucose Lvl 217 (H) 65 - 199 [facility] mg/dL [facility] Comment: Diabetes: >=200 mg/dL plus symp toms BUN 26 (H) 10 - 20 mg/dL [facility] LABORATORY Creatinine 0.96 0.80 - 1.50 mg/dL [facility] LABORATORY Sodium 137 135 - 145 [...] [facility] Estimated GFR >60 >=60 [facility] LABOR[facility]ORY Comment: The reported eGFR should be multiplied b y 1.2 for patients. The MDRD is not an appropriate measure o f renal function for patients with body mass extremes or in patients with acute kidney failure. http://Exelonix.Animated Dynamics/DHnkdep http://Archive Systems/DHMCnkf Specimen Anatomical Collection Method Collection Time Receive d Time (Source) Location / / Volume Laterality Blood specimen 11/29/2017 8:22 AM 05/07/2 018 8:29 (specimen) EDT AM EDT Resulting Agency Comment Spec In Lab Annette Maxwell ATMOSPHERIC PHYSICIST CHEMISTRY ORDERABLES Performing Organization Address City/State/[place] [address] (ABNORMAL) pro-Brain Natriuretic Peptide (11/29/2017 8:22 AM EDT) P athologist Signature ProBNP 1,769 (H) <=125 [facility] pg/mL [facility] Specimen Anatomical Collection Method Collection Time Receive d Time (Source) Location / / Volume Laterality Blood specimen 11/29/2017 8:22 AM 018 8:29 (specimen) EDT AM EDT Resulting Agency Comment Spec In Lab Annette Maxwell ATMOSPHERIC PHYSICIST CHEMISTRY ORDERABLES Performing Organization Address City/[facility]/[place] [address] documented in this encounter Visit Diagnoses Diagnosis Chronic systolic congestive heart failur e Chronic systolic heart failure ASCVD (arteriosclerotic cardiovascular d isease) Unspecified cardiovascular disease Cardiomyopathy, ischemic Other specified forms of chronic ischemi c heart disease PAD (peripheral artery disease) Peripheral vascular disease, unspecified documented in this encounter Care Teams Claims Coordinator Relationship Specialty Start Date End Date Lovely Vicente MD PCP - General 04/16/[address] [place] [address] documented as of this encounter
--- OUTSIDE RECORDS SUMMARY | 2022-04-20 08:12 | XMS_ITS | Encounter Summary ---
:1945 Author Organization [facility] [place] [address] Care Team Providers Name Role Phone Lovely Vicente MD Primary Care Provider Encounter Details Date Type Department Care Team Description 09/06/2017 Telephone [place] [facility] [place], [place] [phone] Social History Tobacco Use Types Packs/Day [...] Cardiology Zulma Dolan MD [facility] [place], [place] [address] (Wo rk) 05/28/2022 Laboratory Appointment Lab 05/28/2022 Office Visit Cardiology Zulma Dolan MD [facility] [place] [address] Liz Poole PA [facility] [place] [address] 06/10/2022 Office Visit Dermatology Laura Scherer MD [facility] [address] [place], [place] [address] (Wo rk) documented as of this encounter Visit Diagnoses Not on filedocumented in this encounter Care Teams Director Revenue Relationship Specialty Start Date End Date Lovely Vicente MD PCP - General 04/16/[address] [place] [address] documented as of this encounter
--- OUTSIDE RECORDS SUMMARY | 2022-04-20 08:12 | XMS_ITS | Encounter Summary ---
:1945 Author Organization [facility] [place] [address] Care Team Providers Name Role Phone Lovely Vicente MD Primary Care Provider Encounter Details Date Type Department Care Team Description 09/07/2017 Laboratory Appointment Lab 3L [facility] [place] [id number] Social History Tobacco Use Types Packs/Day Years [...] [facility] er [address] [place], [place] [address] (Wo rk) 05/28/2022 Laboratory Appointment Lab 05/28/2022 Office Visit Cardiology Zulma Dolan MD [facility] [place] [address] Liz Poole PA [facility] [place] [address] 06/10/2022 Office Visit Dermatology Laura Scherer MD [facility] ER [address] [place], [place] [address] (Wo rk) documented as of this encounter [...] PM EST) athologist Signature Thyroglobulin 1.4 <=54.9 [facility] ng/mL [facility] Comment: Thyroglobulin levels may [...] City/State/[place] [address] TSH (09/07/2017 2:41 PM EST) athologist Signature TSH 3.93 0.27 - 4.20 [facility] Specimen Anatomical Collection Method Collection Time Receive d Time (Source) Location / / Volume Laterality Blood specimen 09/07/2017 2:41 PM 018 2:46 (specimen) EST PM EST Resulting Agency Comment Spec In Lab Luz Prescott MD CHEMISTRY ORDERABLES Performing Organization Address City/State/[place] [address] documented in this encounter Visit Diagnoses Diagnosis Hx of papillary thyroid carcinoma Personal history of malignant neoplasm o f thyroid documented in this encounter Care Teams Scale Mechanic Relationship Specialty Start Date End Date Lovely Vicente MD PCP - General 04/16/[address] [place] [address] documented as of this encounter
--- OUTSIDE RECORDS SUMMARY | 2022-04-20 08:13 | XMS_ITS | Encounter Summary ---
:1945 [place] [address] Care Team Providers Name Role Phone Lovely Vicente MD Primary Care Provider Reason for Visit Auth/Cert Specialty Diagnoses / Procedures Referred By Contact Refer red To Contact Diagnoses Critical lower limb ischemia CELLULITIS RT FOOT Procedures EMERGENCY Referral ID Status Reason Start Date Expiration Date Visits Requ ested Visits Authorized [id number] 1 1 Encounter Details Date Type Department Care Team Description 08/06/2017 - Hospital Encounter 5 Yonathan Oneill lower limb ischemia; 08/16/2017 Su Flores MD Ischemic foot Hospital [facility] DR Siddiqui [place] [address] [phone] Social History Tobacco Use Types Packs/Day Years [...] 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 Patient [...] Dorsalis Pedis (Ankle) Artery ?132 ? 0.94 ??[place]-Biphasic ? Posterior Tibial (Ankle) Artery ??154 ? 1.10 ??[place]-Biphasic ? Fourth Toe ? 67 ?0.48 ?? [...] For any problems or questions please call [phone] ZELDA Smith, ply bander Nurse Clinician For issues on weeknights after 5pm and weekends please call [phone] and ask for the Vascular Fellow computer lab para professional. General Instructions None Future Appointments and Orders Future Appointments Provider Department Dept Phone 08/26/2017 4:00 PM Aurelia Rivera PA V[facility] Surgery [facility] [place] [phone] 09/07/2017 3:00 PM LAB, THREE L Lab 3L [facility] [phone] 09/07/2017 4:00 PM Luz Prescott MD Endocrinology at [place] [phone] 09/09/2017 8:00 AM Barbra Soares APRN Pain Management [facility] [place] [phone] Please bring a list of your current medications and dosage amounts. Discharge References/Attachments: Discharge References/Attachments None Electronically Signed By: YISSEL QUINTERO RN 08/16/2017 documented in this encounter Discharge Instructions Discharge InstructionsYissel Quintero RN - 08/16/2017 10:55 AM EST Patient InstructionsYissel Qiuntero RN - 08/11/2017 8:30 AM EST Patient [...] For any problems or questions please call [phone] ZELDA Smith, ply bander Nurse Clinician For issues on weeknights after 5pm and weekends please call [phone] and ask for the Vascular Fellow computer lab para professional. documented in this encounter Medications at Time [...] Management Discharge Note Patient Destination: [facility] ([facility]) [address] [place] [address] Transportation: with (at bedside) Time of Discharge: by 12 noon Level of Care: swing Patient Aware: yes Family Notified: yes Md to call report to: Yissel Quintero TELEMARKETING MANAGER already called RN to call report to: [phone] Shirin Wolf Office of Care Management Pager [phone] Shirin Wolf RN - 08/16/2017 10:50 AM EST [facility] has offered pt swing bed. Pt and accept bed. will transport via car. TELEMARKETING MANAGER Yissel Quintero aware; d/c paperwork will be completed by 12 noon. [facility] requests pt arrival by 1400 today; TELEMARKETING MANAGER, RN, and family aware. TELEMARKETING MANAGER called [facility] and was told that they prefer pt to arrive with wound vac dressing applied but clamped. TELEMARKETING MANAGER applied new wound vac dressing. RN has [facility] number to call report. PASSR completed; TELEMARKETING MANAGER paged to request provider signature in [...] 08/16/2017 10:34 AM EST Office of Care Management/Speedometer Mechanic Patient Name: Gregory Hoang : 1945 Patient has been offered a swing bed at [facility]. The patient will be transported by private transportation. No MD to MD report necessary Please call Nursing Report to [phone], ask for nurse aide evaluator. Info to accompany patient: Narcotic Prescriptions Copies of Medication Administration Records and IV sheets for past 10 days. Plan: Speedometer Mechanic will be available to the patient and Business Services Sales Representative-RN and/or Carbide Tool Die Maker for further assistance. Patient will be discharged to: [place] [phone] Radha Powers, Speedometer Mechanic Mira Black, VAMSI - 08/15/2017 10:05 PM EST [address] Flores to ask if he wanted to hold metoprolol dose. BP 95/58. OK to hold this dose Courtney Brito - 08/15/2017 3:26 PM EST Office of Care Management(OCM)/Speedometer Mechanic(RS)/ D/C Planning re : Patient is medically [...] status. 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 Vac in [...] patient's referral to: [facility] PHONE: [phone] FAX: [phone] CM spoke with RS who said that [...] rehab. Await recommendations from PT. Covering pager #[phone]. 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 Auto Refinisher Kaitlin Saha, RN Pager #[phone] Payam Rosales - 08/13/2017 2:37 PM EST Joinery Setter Out Encounter Note Patient Name: Gregory Hoang : [id number] MR#: [id number] Admit Date: 08/06/2017 1:41 PM Hospital Day 7 days Narrative: Visited to introduce and assess acceptance of Joinery Setter Out services. Pt was awake, alert, oriented and in chair and family was there. Assessment:Patient coping positively with stresses of illness/hospitalization at this time. Pt says that he is hoping to get better and his family was there. Pt says that he has family care and supportand taking one day at time. Intervention and Outcome: Provided emotional support and encouraging presence. 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 A letter describing our affiliations was reviewed with them and theywere educated about their right to choose where referrals are placed. Patient requests referral to [facility]. PHONE: [phone] FAX: [phone]. And Home NPWT (Negative Pressure Wound Therapy) aka wound vac device made available to pt. Serial # confirmed. Reviewed [facility] Proof of Delivery/Assignment of Benefits Statement(POD/AOB) Form w patient or authorized agent signing on behalf of patient. Copy of POD/AOB provided to pt and other copy faxed to [employer] @ fax# [phone] Expected date of discharge: 08/12/2017. Referral routed to the Speedometer Mechanic for matching with agency/vendor and to provide any required information. Yonathan Starkey MD - 08/12/2017 8:05 AM EST vasc staff: Pain better. Needs ambulatory assessment. Try to use heel block shoe, if not flat shoe ok. 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 Heparin gtt continues to run. [...] of : 1945 AGE 72 y.o. 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 Unsuccessful draw attempt, another wildlife manager will come [facility] to collect blood for PTT test. 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 Continue pain control, IV antibiotics, and heparin infusion. Given that his disease appears to be diabetic, and tibial - pedal, OR tomorrow for angiogram. NPO at midnight tonight. Vriy Starkey MD Vascular Surgery Melba Cruz RN - 08/08/2017 6:41 AM EST Per lab, pt blood glucose 229. Vascular resident computer lab para professional and will forward result to the team prior to rounds. 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 Patient [...] blue toes with CTA showing R NUTRITION AIDE pseudoaneurysm (now thrombosed) and occluded ATs bilaterally. [...] 5. Completion RLE angiogram 6. L NUTRITION AIDE angiogram 7. 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 - L NUTRITION AIDE angriogram demonstrated: High femoral bifurcation over the proximal half of the femoral head. L NUTRITION AIDE access in the distal L NUTRITION AIDE. - Closure device: Mynx Technical Procedure: The [...] for a 45cm 5F Destination. V18 and [place] and QuickCross catheters were used to select [...] A stationed picture of the L NUTRITION AIDE was performed as the patient was noted to have a very high bifurcation. Access appeared in the distal R NUTRITION AIDE. Closure and sheath removal was performed with [...] PM EST 1440 report called to 5 [place] nurse Tessa AGUSTIN documented in this encounter [...] supine -- Bed Mobility Goal, [place] Level independent -- Bed Mobility Goal, Date [...] days -- Transfer Training Goal, Activity Type pnv-qf-ljmgh/ulghn-zb-amz -- Transfer Train Goal, [place] Level conditional independence -- Transfer Train Goal, [...] call cabello within reach, Hourly rounding by RN/DOOR OPENER. Bed alarm / Chair alarm. Patient-specific fall [...] Smith MD - 08/15/2017 6:28 PM EST [facility] Operative Note Patient Name: Gregory Hoang : [id number] MR#: [id number] Case Date: 08/09/2017 Surgeon: Surgeon(s) and Role: [...] 5. Completion RLE angiogram 6. L NUTRITION AIDE angiogram 7. Mynx closure Precautions/Restrictions: fall, sternal [...] other (see comments) (or swing bed) Pager: [phone] BASSAM ELIAS, PT 08/14/2017 Inpatient Physical Therapy [...] to Achieve by discharge Gait Training Goal, [place] Level conditional independence;set up required Gait Training [...] choices are: 1- [facility] PHONE: [phone] FAX: [phone] 2- [facility] ([facility]) [address] [place] [address] 3- [facility])([facility]) [address] [place] [address] I have discussed Medicare/Private Insurance [...] RS/CM on Wednesday to follow-up. Covering pager #[phone] for today. Plan of Care - Henrique [...] additional findings of pseudoaneurysm on R NUTRITION AIDE and bilateral anterior tibial artery occlusions. Was [...] an outpatient once discharged. Have patient call [phone] to set up an appointment. Follow-up: Dermatology will sign-off for now. Please do not hesitate to contact us if you have any questions orconcerns. Impression and Recommendations discussed with primary team on 08/13/2017. Karo Henderson MD Resident in Dermatology Section of Dermatology, Department of Surgery [facility] Pager [phone] Patient seen and evaluated with staff Auto Self Service Station Attendant: Halima Cordero MD Section of Dermatology [facility] Level of Resident Supervision: [...] 5. Completion RLE angiogram 6. L NUTRITION AIDE angiogram 7. Mynx closure Active Non-Hospital Problems [...] home with home health ([facility] PT&OT) Pager: [phone] YASIR TELLO OT 08/12/2017 Occupational Therapy Rehabilitation [...] 5. Completion RLE angiogram 6. L NUTRITION AIDE angiogram 7. Mynx closure Past Medical History: [...] with 24/7 assistance and maximal services) Pager: [phone] NICHOLAS MORA, PT 08/12/2017 Physical Therapy Rehabilitation [...] supine -- Bed Mobility Goal, [place] Level independent -- Bed Mobility Goal, Outcome Achieved -- goal ongoing Goal: Gait Training Goal Stand Alone Therapy Goal Outcome: Ongoing (Interventions Implemented as Appropriate) 08/11/17 1310 08/12/17 1510 Gait Training Goal Gait Training Goal, Date Established 08/11/17 -- Gait Training Goal, Time to Achieve 5 - 7 days -- Gait Training Goal, Flagler Level conditional independence -- Gait Training Goal, [...] days -- Transfer Training Goal, Activity Type yml-kb-uifmz/wrssm-rn-nrk -- Transfer Train Goal, [place] Level conditional independence -- Transfer Training Goal, [...] Smith MD - 08/11/2017 2:52 PM EST [facility] Operative Note Patient Name: Gregory Hoang : [id number] MR#: [id number] Case Date: 08/11/2017 Surgeon: Surgeon(s) and Role: [...] 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 Completion RLE angiogram 6. L NUTRITION AIDE angiogram 7. Mynx closure He is very [...] Anticipated Discharge Disposition: inpatient rehabilitation facility Pager: [phone] LAWRENCE GONZALEZ, PT 08/11/2017 Physical Therapy Rehabilitation [...] to supine Bed Mobility Goal, [place] Level independent Goal: Gait Training Goal Stand Alone Therapy Goal Outcome: Ongoing (Interventions Implemented as Appropriate) 08/11/17 1310 Gait Training Goal Gait Training Goal, Date Established 08/11/17 Gait Training Goal, Time to Achieve 5 - 7 days Gait Training Goal, [place] Level conditional independence Gait Training Goal, Assist [...] 7 days Transfer Training Goal, Activity Type jfc-na-lvjmx/tjpai-zf-icz Transfer Train Goal, [place] Level conditional independence Plan of [facility] Annetta Sandoval RN [...] call cabello within reach, Hourly rounding by RN/DOOR OPENER. Bed alarm / Chair alarm. ? Patient-specific [...] Days: [facility] 07/20/2017 Anticipated Length Of Stay (If known): Expected Length of Hospitalization: 5-7 days2-3 days Current Decision-Making Capacity: Alert and oriented x 4 Advance Care Planning: on file Kisha Hoang [facility] [phone] Current Coping/Education/Information Needs: pt and spouse state [...] Health/Prescription Coverage: Primary Insurance: MEDICARE Secondary Insurance: [employer] [facility] Prescription Coverage: See above Preferred Pharmacy: [facility] Other: N/A Primary Care Provider: Lovely Vicente MD [phone] Patient/Caregiver Goals of Treatment: Patient plans to [...] of care planning. Kaitlin Saha RN Pager: [phone] Plan of Care - Melba Jaramillo RN [...] Overview Goal: Plan of Care Review 08/08/17 8254 Coping/Psychosocial Plan Of Care Reviewed With patient [...] call cabello within reach, Hourly rounding by RN/DOOR OPENER. Bed alarm / Chair alarm. Patient-specific fall [...] at bedside and MD TEAM Carrying pager [phone] contacted (via Radio page) and notified of [...] Zulma Dolan MD [facility] [place], [place] [address] (Wo rk) 05/28/2022 Laboratory Appointment Lab 05/28/2022 Office Visit Cardiology Zulma Dolan MD [facility] [place] [address] Liz Poole PA [facility] [place] [address] 06/10/2022 Office Visit Dermatology Laura Scherer MD [facility] [address] [facility], [place] [address] (Wo rk) documented as of [...] Glucose 160 65 - 199 [facility] mg/dL [facility]OR[facility] Comment: Supplemental ranges: <140 mg/dL before meals <180 mg/dL all other times of the day Specimen Anatomical Collection Method Collection Time Receive d Time (Source) Location / / Volume Laterality Blood specimen 08/16/2017 7:28 AM 018 7:28 (specimen) EST AM EST Yonathan Smith MD POINT OF CARE TEST ORDERABLE S Performing Organization Address City/State/[place] [address] (ABNORMAL) Differential, Automated (08/16/2017 5:08 AM EST) [facility] Method Time Signature Neutrophils % 73.9 % [facility] LABORATORY Neutr Abs (ANC) 5.37 1.70 - [facility] 6.10 [facility] x10(3)/[facility] LABORATORY Lymphocytes % 10.1 % [facility] LAB[facility] Lymphocytes Abs 0.7 (L) 0.9 - 3.2 [facility] x10(3)/[facility] LABORATORY Monocytes % 10.1 % [facility] LABOR[facility]ORY Monocyte Abs 0.7 0.3 - 0.9 [facility] x10(3)/[facility] LABORATORY Eosinophils % 5.1 % [facility] LAB[facility]ORY Eosinophils Abs 0.4 0.0 - 0.4 [facility] x10(3)/[facility] LABORATORY Basophils % 0.4 % [facility] LABORATORY Basophils Abs 0.0 0.0 - 0.1 [facility] x10(3)/[facility] LABORATORY Immature Gran % 0.40 [...] 0.03 0.00 - 0.04 x10(3)/[facility] LABORATORY Specimen Anatomical Collection Method Collection Time Receive d Time (Source) Location / / Volume Laterality Blood specimen 08/16/2017 5:08 AM 018 5:20 (specimen) EST AM EST Resulting Agency Comment Spec In Lab Yonathan Smith MD HEMATOLOGY ORDERABLES Performing Organization Address City/State/[place] [address] (ABNORMAL) Hemogram (08/16/2017 5:08 AM EST) Analysis Performed At Patho logist Time Signature WBC 7.3 4.0 - 9.5 [facility] x10(3)/[facility] LABORATORY RBC 3.36 (L) 4.58 - [facility] 5.54 [facility] x10(6)/[facility] LABORATORY Hemoglobin 9.7 (L) 13.7 - [facility] 16.5 gm/dL [facility] LABORATORY Hematocrit 30.3 (L) 40.5 - [facility] 48.5 % [facility]ORATORY MCV 90.2 82.9 - [facility] 93.1 [facility] LABORATORY MCH 28.9 27.5 - [facility] 32.1 pg [facility] LABORATORY MCHC 32.0 32.0 - [facility] 35.7 gm/dL [facility] LABORATORY Platelets 282 145 - 357 [facility] x10(3)/[facility] LABORATORY RDWSD 53.9 (H) 36.0 - [facility] 45.0 [facility] LABORATORY RDWCV 16.5 (H) 11.4 - [facility] SU 13.8 % [facility] LABORATORY MPV 9.0 7.6 - 12.9 [facility] LABORATORY nRBC % Auto 0.0 % [facility] LABORATORY nRBC Abs Auto 0.000 0.000 - [facility] SU 0.000 [facility] x10(3)/[facility] LABORATORY Specimen Anatomical Collection Method Collection Time Receive d Time (Source) Location / / Volume Laterality Blood specimen 08/16/2017 5:08 AM 018 5:20 (specimen) EST AM EST Resulting Agency Comment Spec In Lab Yonathan Smith MD HEMATOLOGY ORDERABLES Performing Organization Address City/State/[place] [address] (ABNORMAL) Basic Metabolic Panel (non-fasting) (08/16/2017 5:08 AM EST) P athologist Signature Glucose Lvl 141 65 - 199 [facility] mg/dL [facility] LABORATORY Comment: [...] or in patients with acute kidney failure. [email or web address] [email or web address] Specimen Anatomical Collection Method Collection Time Receive d Time (Source) Location / / Volume Laterality Blood specimen 08/16/2017 5:08 AM 018 5:20 (specimen) EST AM EST Resulting Agency Comment Spec In Lab Yonathan Smith MD CHEMISTRY ORDERABLES Performing Organization Address City/State/[place] [address] (ABNORMAL) Prothrombin Time (08/16/2017 [...] Address City/State/ZIP Code Phon e Number [address] POCT Glucose (08/16/2017 4:09 AM EST) athologist Signature POC Glucose 147 65 - 199 [facility] mg/dL [facility] LABORATORY Comment: Supplemental ranges: <140 mg/dL before meals <180 mg/dL all other times of the day Specimen Anatomical Collection Method Collection Time Receive d Time (Source) Location / / Volume Laterality Blood specimen 08/16/2017 4:09 AM 018 4:09 (specimen) EST AM EST Yonathan Smith MD POINT OF CARE TEST ORDERABLE S Performing Organization Address City/State/ZIP [place] [address] POCT Glucose (08/15/2017 11:56 PM EST) athologist Signature POC Glucose 176 65 - 199 [facility] SU mg/dL [facility] LABORATORY Comment: Supplemental ranges: <140 mg/dL before meals <180 mg/dL all other times of the day Specimen Anatomical Collection Method Collection Time Receive d Time (Source) Location / / Volume Laterality Blood specimen 08/15/2017 11:56 8 (specimen) PM EST 11:56 PM EST Yonathan Smith MD POINT OF CARE TEST ORDERABLE S Performing Organization Address City/State/ZIP [place] [address] POCT Glucose (08/15/2017 8:05 PM EST) athologist Signature POC Glucose 136 65 - 199 [place] mg/dL [facility] LABORATORY Comment: Supplemental ranges: <140 mg/dL before meals <180 mg/dL all other times of the day Specimen Anatomical Collection Method Collection Time Receive d Time (Source) Location / / Volume Laterality Blood specimen 08/15/2017 8:05 PM 018 8:05 (specimen) EST PM EST Yonathan Smith MD POINT OF CARE TEST ORDERABLE S Performing Organization Address City/State/ZIP [place] [address] (ABNORMAL) POCT Glucose (08/15/2017 4:50 PM EST) athologist Signature POC Glucose 232 (H) 65 - 199 [facility] SU mg/dL [facility] LABORATORY Comment: Supplemental ranges: <140 mg/dL before meals <180 mg/dL all other times of the day Specimen Anatomical Collection Method Collection Time Receive d Time (Source) Location / / Volume Laterality Blood specimen 08/15/2017 4:50 PM 018 4:50 (specimen) EST PM EST Yonathan Smith MD POINT OF CARE TEST ORDERABLE S Performing Organization Address City/State/ZIP [place] [address] POCT Glucose (08/15/2017 12:04 PM EST) athologist Signature POC Glucose 135 65 - 199 [facility] SU mg/dL [facility] LABORATORY Comment: Supplemental ranges: <140 mg/dL before meals <180 mg/dL all other times of the day Specimen Anatomical Collection Method Collection Time Receive d Time (Source) Location / / Volume Laterality Blood specimen 08/15/2017 12:04 8 (specimen) PM EST 12:04 PM EST Yonathan Smith MD POINT OF CARE TEST ORDERABLE S Performing Organization Address City/State/ZIP [place] [address] HOSPITAL [address] POCT Glucose (08/15/2017 7:36 AM EST) P athologist Signature POC Glucose 124 65 - 199 [facility] mg/dL [facility] LABORATORY Comment: Supplemental ranges: <140 mg/dL before meals <180 mg/dL all other times of the day Specimen Anatomical Collection Method Collection Time Receive d Time (Source) Location / / Volume Laterality Blood specimen 08/15/2017 7:36 AM 018 7:36 (specimen) EST AM EST Yonathan Smith MD POINT OF CARE TEST ORDERABLE S Performing Organization Address City/State/[place] [address] (ABNORMAL) Differential, Automated (08/15/2017 6:22 AM EST) Patholo gist Method Time Signature Neutrophils % 76.1 % [facility] LABORATORY Neutr Abs (ANC) 6.62 (H) 1.70 - [facility] 6.10 [facility] x10(3)/[facility] L LABORATORY Lymphocytes % 9.3 % [facility] LABORATORY Lymphocytes Abs 0.8 (L) 0.9 - 3.2 [facility] x10(3)/[facility] LABORATORY Monocytes % 9.4 % [facility] LABORATORY Monocyte Abs 0.8 0.3 - 0.9 [facility] x10(3)/[facility] LABORATORY Eosinophils % 4.0 % [facility] LABORATORY Eosinophils Abs 0.4 0.0 - 0.4 [facility] x10(3)/[facility] LABORATORY Basophils % 0.6 % [facility] LABORATORY Basophils Abs 0.0 0.0 - 0.1 [facility] x10(3)/[facility] LABORATORY Immature Gran % 0.60 % [...] Gran Abs 0.05 (H) 0.00 - 0.04 x10(3)/[facility] LABORATORY Specimen Anatomical Collection Method Collection Time Receive d Time (Source) Location / / Volume Laterality Blood specimen 08/15/2017 6:22 AM 018 6:33 (specimen) EST AM EST Resulting Agency Comment Spec In Lab Yonathan Smith MD HEMATOLOGY ORDERABLES Performing Organization Address City/State/[place] [address] (ABNORMAL) Hemogram (08/15/2017 6:22 AM EST) Analysis Performed At Patho logist Time Signature WBC 8.7 4.0 - 9.5 [facility] x10(3)/[facility] LABORATORY RBC 3.21 (L) 4.58 - [facility] x10(6)/[facility] LABORATORY Hemoglobin 9.1 (L) 13.7 - [facility] 16.5 gm/dL [facility] LABORATORY Hematocrit 29.0 (L) 40.5 - [facility] 48.5 % [facility] LABORATORY MCV 90.3 82.9 - [facility] 93[facility]1 [facility] LABORATORY MCH 28.3 27.5 - [facility] 32.1 pg [facility] LABORATORY MCHC 31.4 (L) 32.0 - [facility]dL [facility] LABORATORY Platelets 254 145 - 357 [facility] x10(3)/[facility] LABORATORY RDWSD 53.9 (H) 36.0 - [facility] SU 45.0 [facility] LABORATORY RDWCV 16.3 (H) 11.4 - [facility] SU 13.8 % [facility] LABORATORY MPV 8.8 7.6 - 12.9 [facility] LABORATORY nRBC % Auto 0.0 % [facility] LABORATORY nRBC Abs Auto 0.000 0.000 - [facility] SU 0.000 [facility] x10(3)/[facility] LABORATORY Specimen Anatomical Collection Method Collection Time Receive d Time (Source) Location / / Volume Laterality Blood specimen 08/15/2017 6:22 AM 018 6:33 (specimen) EST AM EST Resulting Agency Comment Spec In Lab Yonathan Smith MD HEMATOLOGY ORDERABLES Performing Organization Address City/[facility]/[place] [address] (ABNORMAL) Basic Metabolic Panel (non-fasting) (08/15/2017 6:22 AM EST) athologist Signature Glucose Lvl 118 65 - 199 [facility] mg/dL [facility] LABORATORY Comment: [...] [facility] LAB[facility] Estimated GFR >60 >=60 [facility] LABORATORY Comment: The reported eGFR should be multiplied b y 1.2 for patients. The MDRD is not an appropriate measure o f renal function for patients with body mass extremes or in patients with acute kidney failure. http://[employer]/DHnkdep http://Global Filmd[employer]/DHMCnkf Specimen Anatomical Collection Method Collection Time Receive d Time (Source) Location / / Volume Laterality Blood specimen 08/15/2017 6:22 AM 018 6:33 (specimen) EST AM EST Resulting Agency Comment Spec In Lab Yonathan Smith MD CHEMISTRY ORDERABLES Performing Organization Address City/[facility]/ZIP [place] [address] (ABNORMAL) Prothrombin Time (08/15/2017 [...] Organization Address City/State/ZIP [place] [address] POCT Glucose (08/15/2017 4:33 AM EST) athologist Signature POC Glucose 164 65 - 199 [facility]dL [facility] LABORATORY Comment: Supplemental ranges: <140 mg/dL before meals <180 mg/dL all other times of the day Specimen Anatomical Collection Method Collection Time Receive d Time (Source) Location / / Volume Laterality Blood specimen 08/15/2017 4:33 AM 018 4:33 (specimen) EST AM EST Yonathan Smith MD POINT OF CARE TEST ORDERABLE S Performing Organization Address City/State/ZIP [place] [address] POCT Glucose (08/15/2017 12:12 AM EST) athologist Signature POC Glucose 89 65 - 199 [facility]dL [facility] LABORATORY Comment: Supplemental ranges: <140 mg/dL before meals <180 mg/dL all other times of the day Specimen Anatomical Collection Method Collection Time Receive d Time (Source) Location / / Volume Laterality Blood specimen 08/15/2017 12:12 8 (specimen) AM EST 12:12 AM EST Yonathan Smith MD POINT OF CARE TEST ORDERABLE S Performing Organization Address City/State/ZIP [place] [address] (ABNORMAL) POCT Glucose (08/14/2017 8:07 PM EST) athologist Signature POC Glucose 204 (H) 65 - 199 [place] mg/dL [facility] LABORATORY Comment: Supplemental ranges: <140 mg/dL before meals <180 mg/dL all other times of the day Specimen Anatomical Collection Method Collection Time Receive d Time (Source) Location / / Volume Laterality Blood specimen 08/14/2017 8:07 PM 018 8:07 (specimen) EST PM EST Yonathan Smith MD POINT OF CARE TEST ORDERABLE S Performing Organization Address City/State/ZIP [place] [address] POCT Glucose (08/14/2017 5:11 PM EST) athologist Signature POC Glucose 174 65 - 199 [place] [facility] mg/dL [facility] LABORATORY Comment: Supplemental ranges: <140 mg/dL before meals <180 mg/dL all other times of the day Specimen Anatomical Collection Method Collection Time Receive d Time (Source) Location / / Volume Laterality Blood specimen 08/14/2017 5:11 PM 018 5:11 (specimen) EST PM EST Yonathan Smith MD POINT OF CARE TEST ORDERABLE S Performing Organization Address City/State/ZIP [place] [address] POCT Glucose (08/14/2017 12:10 PM EST) athologist Signature POC Glucose 141 65 - 199 [place] mg/dL [facility] LABORATORY Comment: Supplemental ranges: <140 mg/dL before meals <180 mg/dL all other times of the day Specimen Anatomical Collection Method Collection Time Receive d Time (Source) Location / / Volume Laterality Blood specimen 08/14/2017 12:10 8 (specimen) PM EST 12:10 PM EST Yonathan Smith MD POINT OF CARE TEST ORDERABLE S Performing Organization Address City/State/ZIP Code Phon e Number [address] POCT Glucose (08/14/2017 8:07 AM EST) P athologist Signature POC Glucose 158 65 - 199 [facility] mg/dL [facility] LABORATORY Comment: Supplemental ranges: <140 mg/dL before meals <180 mg/dL all other times of the day Specimen Anatomical Collection Method Collection Time Receive d Time (Source) Location / / Volume Laterality Blood specimen 08/14/2017 8:07 AM 018 8:07 (specimen) EST AM EST Yonathan Smith MD POINT OF CARE TEST ORDERABLE S Performing Organization Address City/State/ZIP [place] [address] (ABNORMAL) Differential, Automated (08/14/2017 4:52 AM EST) Patholo gist Method Time Signature Neutrophils % 78.6 % [facility] LABORATORY Neutr Abs (ANC) 7.70 (H) 1.70 - [facility] 6.10 [facility] x10(3)/[facility] L LABORATORY Lymphocytes % 7.8 % [facility] LABORATORY Lymphocytes Abs 0.8 (L) 0.9 - 3.2 [facility] x10(3)/[facility] LABORATORY Monocytes % 8.8 % [facility] LABORATORY Monocyte Abs 0.9 0.3 - 0.9 [facility] x10(3)/[facility] LABORATORY Eosinophils % 4.0 % [facility] LABORATORY Eosinophils Abs 0.4 0.0 - 0.4 [facility] x10(3)/[facility] LABORATORY Basophils % 0.5 % [facility] LABORATORY Basophils Abs 0.0 0.0 - 0.1 [facility] x10(3)/[facility] LABORATORY Immature Gran [...] Melisa Gran Abs 0.03 0.00 - 0.04 x10(3)/[facility] LABORATORY Specimen Anatomical Collection Method Collection Time Receive d Time (Source) Location / / Volume Laterality Blood specimen 08/14/2017 4:52 AM 018 5:08 (specimen) EST AM EST Resulting Agency Comment Spec In Lab Yonathan Smith MD HEMATOLOGY ORDERABLES Performing Organization Address City/State/[place] [address] (ABNORMAL) Hemogram (08/14/2017 4:52 AM EST) Analysis Performed At Patho logist Time Signature WBC 9.8 (H) 4.0 - 9.5 [facility] x10(3)/[facility] LABORATORY RBC 3.32 (L) 4.58 - [facility] x10(6)/[facility] LABORATORY Hemoglobin 9.5 (L) 13.7 - [facility] 16.[facility] gm/dL [facility] LABORATORY Hematocrit 30.3 (L) 40.5 - [facility] SU 48.5 % [facility] LABORATORY MCV 91.3 82.9 - [facility] SU 93.1 [facility] LABORATORY MCH 28.6 27.5 - [place] [facility] 32.1 pg [facility] LABORATORY MCHC 31.4 (L) 32.0 - [facility] SU 35.7 gm/dL [facility] LABORATORY Platelets 263 145 - 357 [facility] x[facility](3[facility] LABORATORY RDWSD 54.8 (H) 36.0 - [facility] SU 45.0 [facility] RDWCV 16.5 (H) 11.4 - [facility] SU 13.8 % [facility] LABORATORY MPV 9.1 7.6 - 12.9 [facility] LABORATORY nRBC % Auto 0.0 % [facility] LABORATORY nRBC Abs Auto 0.000 0.000 - [facility] 0.000 [facility] x10(3)/[facility] LABORATORY Specimen Anatomical Collection Method Collection Time Receive d Time (Source) Location / / Volume Laterality Blood specimen 08/14/2017 4:52 AM 018 5:08 (specimen) EST AM EST Resulting Agency Comment Spec In Lab Yonathan Smith MD HEMATOLOGY ORDERABLES Performing Organization Address City/[facility]/[place] [address] (ABNORMAL) Prothrombin Time (08/14/2017 [...] Organization Address City/State/[place] [address] (ABNORMAL) Basic Metabolic Panel (non-fasting) (08/14/2017 4:52 AM EST) athologist Signature Glucose Lvl 135 65 - 199 [facility] mg/dL [facility] LABORATORY Comment: [...] in patients with acute kidney failure. http://Global Filmdemic.[employer]/DHnkdep http://[employer]/DHMCnkf Specimen Anatomical Collection Method Collection Time Receive d Time (Source) Location / / Volume Laterality Blood specimen 08/14/2017 4:52 AM 018 5:08 (specimen) EST AM EST Resulting Agency Comment Spec In Lab Yonathan Smith MD CHEMISTRY ORDERABLES Performing Organization Address City/State/[place] [address] POCT Glucose (08/14/2017 3:56 AM EST) P athologist Signature POC Glucose 135 65 - 199 [facility] mg/dL [facility] LABORATORY Comment: Supplemental ranges: <140 mg/dL before meals <180 mg/dL all other times of the day Specimen Anatomical Collection Method Collection Time Receive d Time (Source) Location / / Volume Laterality Blood specimen 08/14/2017 3:56 AM 018 3:56 (specimen) EST AM EST Yonathan Smith MD POINT OF CARE TEST ORDERABLE S Performing Organization Address City/State/ZIP Code [place] [address] POCT Glucose (08/13/2017 11:13 PM EST) athologist Signature POC Glucose 118 65 - 199 [place] mg/dL [facility] LABORATORY Comment: Supplemental ranges: <140 mg/dL before meals <180 mg/dL all other times of the day Specimen Anatomical Collection Method Collection Time Receive d Time (Source) Location / / Volume Laterality Blood specimen 08/13/2017 11:13 8 (specimen) PM EST 11:13 PM EST Yonathan Smith MD POINT OF CARE TEST ORDERABLE S Performing Organization Address City/[facility]/ZIP Code [place] [address] (ABNORMAL) POCT Glucose (08/13/2017 8:08 PM EST) athologist Signature POC Glucose 204 (H) 65 - 199 [place] [facility] mg/dL [facility] LABORATORY Comment: Supplemental ranges: <140 mg/dL before meals <180 mg/dL all other times of the day Specimen Anatomical Collection Method Collection Time Receive d Time (Source) Location / / Volume Laterality Blood specimen 08/13/2017 8:08 PM 018 8:08 (specimen) EST PM EST Yonathan Smith MD POINT OF CARE TEST ORDERABLE S Performing Organization Address City/[facility]/ZIP Code [place] [address] POCT Glucose (08/13/2017 4:02 PM EST) athologist Signature POC Glucose 145 65 - 199 [place] mg/dL [facility] LABORATORY Comment: Supplemental ranges: <140 mg/dL before meals <180 mg/dL all other times of the day Specimen Anatomical Collection Method Collection Time Receive d Time (Source) Location / / Volume Laterality Blood specimen 08/13/2017 4:02 PM 018 4:02 (specimen) EST PM EST Yonathan Smith MD POINT OF CARE TEST ORDERABLE S Performing Organization Address City/State/ZIP [place] [address] POCT Glucose (08/13/2017 11:31 AM EST) P athologist Signature POC Glucose 179 65 - 199 [facility] LABORATORY Comment: Supplemental ranges: <140 mg/dL before meals <180 mg/dL all other times of the day Specimen Anatomical Collection Method Collection Time Receive d Time (Source) Location / / Volume Laterality Blood specimen 08/13/2017 11:31 8 (specimen) AM EST 11:31 AM EST Yonathan Smith MD POINT OF CARE TEST ORDERABLE S Performing Organization Address City/[facility]/ZIP [place] [address] (ABNORMAL) POCT Glucose (08/13/2017 10:16 AM EST) athologist Signature POC Glucose 211 (H) 65 - 199 [facility]dL [facility] LABORATORY Comment: Supplemental ranges: <140 mg/dL before meals <180 mg/dL all other times of the day Specimen Anatomical Collection Method Collection Time Receive d Time (Source) Location / / Volume Laterality Blood specimen 08/13/2017 10:16 8 (specimen) AM EST 10:16 AM EST Yonathan Smith MD POINT OF CARE TEST ORDERABLE S Performing Organization Address City/[facility]/ZIP Code Phon e Number [address] JULIAN, legs, multiple levels (08/13/2017 7:42 AM EST) Component Value Ref Test Analysis Performed At Patholo gist Range Method Time Signature VB Text Department: Vascular Surgery Lab VASCUBASE Report Patient: [id number] (GREGORY HOANG) CPT: 47171 ICD10: I99.8 Referring Physician: YONATHAN SMITH ?? Indications: s/p R 1,2,3 toe amps with red left foot, need n ew baseline Diabetes mellitus: yes ICD10 Diagnosis Code: I99.8 Findings: Right ?Pressure (mm Hg) ?? JULIAN ??Waveform ?TBI ?? Brachial Artery ?138 ? Dorsalis Pedis (Ankle) Arter y ?132 ? 0.94 ??[place]- Biphasic ? Posterior Tibial (Ankle) Art anila ??154 ? 1.10 ??[place]-Biphasic ? Fourth Toe ? 67 ? 0.48 [...] 156 65 - 199 [place] mg/dL [facility] LABORATORY Comment: Supplemental ranges: <140 mg/dL before meals <180 mg/dL all other times of the day Specimen Anatomical Collection Method Collection Time Receive d Time (Source) Location / / Volume Laterality Blood specimen 08/13/2017 7:33 AM 018 7:33 (specimen) EST AM EST Yonathan Smith MD POINT OF CARE TEST ORDERABLE S Performing Organization Address City/State/ZIP [place] [address] (ABNORMAL) Differential, Automated (08/13/2017 5:33 AM EST) [facility] Method Time Signature Neutrophils % 77.8 % [facility] LABORATORY Neutr Abs (ANC) 7.83 (H) 1.70 - [facility] 6.10 [facility] x10(3)/[facility] L LABORATORY Lymphocytes % 8.4 % [facility] LABORATORY Lymphocytes Abs 0.8 (L) 0.9 - 3.2 [facility] x10(3)/[facility] LABORATORY Monocytes % 8.3 % [facility] LABORATORY Monocyte Abs 0.8 0.3 - 0.9 [facility] x10(3)/[facility] LABORATORY Eosinophils % 4.6 % [facility] LABORATORY Eosinophils Abs 0.5 (H) 0.0 - 0.4 [facility] x10(3)/[facility] LABORATORY Basophils % 0.5 % [facility] LABORATORY Basophils Abs 0.0 0.0 - 0.1 [facility] x10(3)/[facility] LABORATORY Immature Gran [...] 0.04 0.00 - 0.04 x10(3)/[facility] LABORATORY Specimen Anatomical Collection Method Collection Time Receive d Time (Source) Location / / Volume Laterality Blood specimen 08/13/2017 5:33 AM 018 6:04 (specimen) EST AM EST Resulting Agency Comment Spec In Lab Yonathan Smith MD HEMATOLOGY ORDERABLES Performing Organization Address City/State/ZIP Code Phon e Number [address] (ABNORMAL) Hemogram (08/13/2017 5:33 AM EST) Analysis Performed At Patho logist Time Signature WBC 10.1 (H) 4.0 - 9.5 [facility] x10(3)/[facility] LABORATORY RBC 3.21 (L) 4.58 - [facility] x10(6)/[facility] LABORATORY Hemoglobin 9.2 (L) 13.7 - [facility] 16.5 gm/dL [facility] LABORATORY Hematocrit 29.6 (L) 40.5 - [facility] 48.5 % [facility] LABORATORY MCV 92.2 82.9 - [facility] 93.1 [facility] LABORATORY MCH 28.7 27.5 - [facility] 32.1 pg [facility] LABORATORY MCHC 31.1 (L) 32.0 - [facility]m/dL [facility] LABORATORY Platelets 263 145 - 357 [facility] x10(3)/[facility] LABORATORY RDWSD 54.8 (H) 36.0 - [facility] 45.0 [facility] LABORATORY RDWCV 16.4 (H) 11.4 - [facility] 13.8 % [facility] LABORATORY MPV 9.2 7.6 - 12.9 [facility] LABORATORY nRBC % Auto 0.0 % [facility] LABORATORY nRBC Abs Auto 0.000 0.000 - [facility] 0.000 [facility] x10(3)/[facility] LABORATORY Specimen Anatomical Collection Method Collection Time Receive d Time (Source) Location / / Volume Laterality Blood specimen 08/13/2017 5:33 AM 018 6:04 (specimen) EST AM EST Resulting Agency Comment Spec In Lab Yonathan Smith MD HEMATOLOGY ORDERABLES Performing Organization Address City/State/ZIP [place] [address] (ABNORMAL) Prothrombin Time (08/13/2017 [...] City/State/ZIP Code Phon e Number [place] [id number] (ABNORMAL) Basic Metabolic Panel (non-fasting) (08/13/2017 5:33 AM EST) athologist Signature Glucose Lvl 126 65 - 199 [facility] mg/dL [facility] LABORATORY Comment: [...] [facility] LAB[facility]ORY Estimated GFR >60 >=60 [facility] LABORATORY Comment: The reported eGFR should be multiplied b y 1.2 for patients. The MDRD is not an appropriate measure o f renal function for patients with body mass extremes or in patients with acute kidney failure. http://Inkling/DHnkdep http://Inkling/DHMCnkf Specimen Anatomical Collection Method Collection Time Receive d Time (Source) Location / / Volume Laterality Blood specimen 08/13/2017 5:33 AM 018 6:04 (specimen) EST AM EST Resulting Agency Comment Spec In Lab Yonathan Smith MD CHEMISTRY ORDERABLES Performing Organization Address City/[facility]/ZIP [facility] Phon e Number [address] POCT Glucose (08/13/2017 4:29 AM EST) athologist Signature POC Glucose 111 65 - 199 [facility]dL [facility] LABORATORY Comment: Supplemental ranges: <140 mg/dL before meals <180 mg/dL all other times of the day Specimen Anatomical Collection Method Collection Time Receive d Time (Source) Location / / Volume Laterality Blood specimen 08/13/2017 4:29 AM 018 4:29 (specimen) EST AM EST Yonathan Smith MD POINT OF CARE TEST ORDERABLE S Performing Organization Address City/[facility]/ZIP Code Phon e Number [address] POCT Glucose (08/12/2017 11:28 PM EST) athologist Signature POC Glucose 164 65 - 199 [facility] LABORATORY Comment: Supplemental ranges: <140 mg/dL before meals <180 mg/dL all other times of the day Specimen Anatomical Collection Method Collection Time Receive d Time (Source) Location / / Volume Laterality Blood specimen 08/12/2017 11:28 8 (specimen) PM EST 11:28 PM EST Yonathan Smith MD POINT OF CARE TEST ORDERABLE S Performing Organization Address City/[facility]/ZIP [place] [address] (ABNORMAL) POCT Glucose (08/12/2017 7:40 PM EST) athologist Signature POC Glucose 209 (H) 65 - 199 [facility] mg/dL [facility] LABORATORY Comment: Supplemental ranges: <140 mg/dL before meals <180 mg/dL all other times of the day Specimen Anatomical Collection Method Collection Time Receive d Time (Source) Location / / Volume Laterality Blood specimen 08/12/2017 7:40 PM 018 7:40 (specimen) EST PM EST Yonathan Smith MD POINT OF CARE TEST ORDERABLE S Performing Organization Address City/State/ZIP Code Phon e Number [address] POCT Glucose (08/12/2017 4:24 PM EST) athologist Signature POC Glucose 161 65 - 199 [facility] LABORATORY Comment: Supplemental ranges: <140 mg/dL before meals <180 mg/dL all other times of the day Specimen Anatomical Collection Method Collection Time Receive d Time (Source) Location / / Volume Laterality Blood specimen 08/12/2017 4:24 PM 018 4:24 (specimen) EST PM EST Yonathan Smith MD POINT OF CARE TEST ORDERABLE S Performing Organization Address City/State/ZIP [place] [address] POCT Glucose (08/12/2017 12:00 PM EST) athologist Signature POC Glucose 167 65 - 199 [place] mg/dL [facility] LABORATORY Comment: Supplemental ranges: <140 mg/dL before meals <180 mg/dL all other times of the day Specimen Anatomical Collection Method Collection Time Receive d Time (Source) Location / / Volume Laterality Blood specimen 08/12/2017 12:00 8 (specimen) PM EST 12:00 PM EST Yonathan Smith MD POINT OF CARE TEST ORDERABLE S Performing Organization Address City/State/ZIP [place] [address] POCT Glucose (08/12/2017 7:25 AM EST) P athologist Signature POC Glucose 152 65 - 199 [facility] mg/dL [facility] LABORATORY Comment: Supplemental ranges: <140 mg/dL before meals <180 mg/dL all other times of the day Specimen Anatomical Collection Method Collection Time Receive d Time (Source) Location / / Volume Laterality Blood specimen 08/12/2017 7:25 AM 018 7:25 (specimen) EST AM EST Yonathan Smith MD POINT OF CARE TEST ORDERABLE S Performing Organization Address City/State/[place] [address] (ABNORMAL) Differential, Automated (08/12/2017 6:29 AM EST) Patholo gist Method Time Signature Neutrophils % 78.7 % [facility] LABORATORY Neutr Abs (ANC) 7.94 (H) 1.70 - [facility] 6.10 [facility] x10(3)/[facility] LABORATORY Lymphocytes % 8.8 % [facility] LABORATORY Lymphocytes Abs 0.9 0.9 - 3.2 [facility] x10(3)/[facility] LABORATORY Monocytes % 7.8 % [facility] LABORATORY Monocyte Abs 0.8 0.3 - 0.9 [facility] x10(3)/[facility] LABORATORY Eosinophils % 3.9 % [facility] LABORATORY Eosinophils Abs 0.4 0.0 - 0.4 [facility] x10(3)/[facility] LABORATORY Basophils % 0.3 % [facility] LABORATORY Basophils Abs 0.0 0.0 - 0.1 [facility] x10(3)/[facility] LABORATORY Immature Gran % 0.50 % [...] Gran Abs 0.05 (H) 0.00 - 0.04 x10(3)/[facility] LABORATORY Specimen Anatomical Collection Method Collection Time Receive d Time (Source) Location / / Volume Laterality Blood specimen 08/12/2017 6:29 AM 018 6:38 (specimen) EST AM EST Resulting Agency Comment Spec In Lab Yonathan Smith MD HEMATOLOGY ORDERABLES Performing Organization Address City/State/[place] [address] (ABNORMAL) Hemogram (08/12/2017 6:29 AM EST) Analysis Performed At Patho logist Time Signature WBC 10.1 (H) 4.0 - 9.5 [facility] x10(3)/[facility] LABORATORY RBC 3.02 (L) 4.58 - [facility] x10(6)/[facility] LABORATORY Hemoglobin 8.7 (L) 13.7 - [facility] 16.5 gm/dL [facility] LABORATORY Hematocrit 28.1 (L) 40.5 - [facility] 48.5 % [facility] LABORATORY MCV 93.0 82.9 - [facility] 93.1 [facility] LABORATORY MCH 28.8 27.5 - [facility] 32.1 pg [facility] LABORATORY MCHC 31.0 (L) 32.0 - [facility] 35.7 gm/dL [facility] LABORATORY Platelets 223 145 - 357 [facility] x10(3)/[facility] LABORATORY RDWSD 56.1 (H) 36.0 - [facility] 45.0 [facility] LABORATORY RDWCV 16.4 (H) 11.4 - [facility] SU 13.8 % [facility] LABORATORY MPV 9.0 7.6 - 12.9 [facility] LABORATORY nRBC % Auto 0.0 % [facility] LABORATORY nRBC Abs Auto 0.000 0.000 - [facility] SU 0.000 [facility] x10(3)/[facility] LABORATORY Specimen Anatomical Collection Method Collection Time Receive d Time (Source) Location / / Volume Laterality Blood specimen 08/12/2017 6:29 AM 018 6:38 (specimen) EST AM EST Resulting Agency Comment Spec In Lab Yonathan Smith MD HEMATOLOGY ORDERABLES Performing Organization Address City/[facility]/ZIP Code [place] [address] (ABNORMAL) Prothrombin Time (08/12/2017 [...] Smith MD HEMATOLOGY ORDERABLES Performing Organization Address City/[facility]/ZIP Code [place] [address] (ABNORMAL) Basic Metabolic Panel (non-fasting) (08/12/2017 6:29 AM EST) athologist Signature Glucose Lvl 151 65 - 199 [facility] mg/dL [facility] LABORATORY Comment: [...] [facility] LAB[facility]ORY Estimated GFR >60 >=60 [facility] LABORATORY Comment: The reported eGFR should be multiplied b y 1.2 for patients. The MDRD is not an appropriate measure o f renal function for patients with body mass extremes or in patients with acute kidney failure. http://Inkling/DHnkdep http://Inkling/DHMCnkf Specimen Anatomical Collection Method Collection Time Receive d Time (Source) Location / / Volume Laterality Blood specimen 08/12/2017 6:29 AM 018 6:38 (specimen) EST AM EST Resulting Agency Comment Spec In Lab Yonathan Smith MD CHEMISTRY ORDERABLES Performing Organization Address City/[facility]/ZIP Code Phon e Number [address] POCT Glucose (08/12/2017 4:08 AM EST) athologist Signature POC Glucose 181 65 - 199 [facility] LAB[facility]ATORY Comment: Supplemental ranges: <140 mg/dL before meals <180 mg/dL all other times of the day Specimen Anatomical Collection Method Collection Time Receive d Time (Source) Location / / Volume Laterality Blood specimen 08/12/2017 4:08 AM 018 4:08 (specimen) EST AM EST Yonathan Smith MD POINT OF CARE TEST ORDERABLE S Performing Organization Address City/[facility]/ZIP Code [place] [address] (ABNORMAL) POCT Glucose (08/12/2017 12:17 AM EST) athologist Signature POC Glucose 221 (H) 65 - 199 [facility]dL [facility] LABORATORY Comment: Supplemental ranges: <140 mg/dL before meals <180 mg/dL all other times of the day Specimen Anatomical Collection Method Collection Time Receive d Time (Source) Location / / Volume Laterality Blood specimen 08/12/2017 12:17 8 (specimen) AM EST 12:17 AM EST Yonathan Smith MD POINT OF CARE TEST ORDERABLE S Performing Organization Address City/State/ZIP [place] [address] (ABNORMAL) POCT Glucose (08/11/2017 8:52 PM EST) athologist Signature POC Glucose 221 (H) 65 - 199 [place] [facility] mg/dL [facility] LABORATORY Comment: Supplemental ranges: <140 mg/dL before meals <180 mg/dL all other times of the day Specimen Anatomical Collection Method Collection Time Receive d Time (Source) Location / / Volume Laterality Blood specimen 08/11/2017 8:52 PM 018 8:52 (specimen) EST PM EST Yonathan Smith MD POINT OF CARE TEST ORDERABLE S Performing Organization Address City/[facility]/ZIP Code [place] [address] POCT Glucose (08/11/2017 5:59 PM EST) athologist Signature POC Glucose 169 65 - 199 [place] [facility] mg/dL [facility] LABORATORY Comment: Supplemental ranges: <140 mg/dL before meals <180 mg/dL all other times of the day Specimen Anatomical Collection Method Collection Time Receive d Time (Source) Location / / Volume Laterality Blood specimen 08/11/2017 5:59 PM 018 5:59 (specimen) EST PM EST Yonathan Smith MD POINT OF CARE TEST ORDERABLE S Performing Organization Address City/State/ZIP [place] [address] (ABNORMAL) POCT Glucose (08/11/2017 4:08 PM EST) athologist Signature POC Glucose 240 (H) 65 - 199 [place] [facility] mg/dL [facility] LABORATORY Comment: Supplemental ranges: <140 mg/dL before meals <180 mg/dL all other times of the day Specimen Anatomical Collection Method Collection Time Receive d Time (Source) Location / / Volume Laterality Blood specimen 08/11/2017 4:08 PM 018 4:08 (specimen) EST PM EST Yonathan Smith MD POINT OF CARE TEST ORDERABLE S Performing Organization Address City/State/ZIP Code Phon e Number [address] POCT Glucose (08/11/2017 12:04 PM EST) athologist Signature POC Glucose 182 65 - 199 [facility] LAB[facility]ATORY Comment: Supplemental ranges: <140 mg/dL before meals <180 mg/dL all other times of the day Specimen Anatomical Collection Method Collection Time Receive d Time (Source) Location / / Volume Laterality Blood specimen 08/11/2017 12:04 8 (specimen) PM EST 12:04 PM EST Yonathan Smith MD POINT OF CARE TEST ORDERABLE S Performing Organization Address City/[facility]/ZIP Code [place] [address] POCT Glucose (08/11/2017 7:31 AM EST) athologist Signature POC Glucose 156 65 - 199 [facility] LABORATORY Comment: Supplemental ranges: <140 mg/dL before meals <180 mg/dL all other times of the day Specimen Anatomical Collection Method Collection Time Receive d Time (Source) Location / / Volume Laterality Blood specimen 08/11/2017 7:31 AM 018 7:31 (specimen) EST AM EST Yonathan Smith MD POINT OF CARE TEST ORDERABLE S Performing Organization Address City/State/ZIP Code Phon e Number [address] (ABNORMAL) Differential, Automated (08/11/2017 6:16 AM EST) [facility] gist Method Time Signature Neutrophils % 83.7 % [facility] LABORATORY Neutr Abs (ANC) 10.76 (H) 1.70 - [facility] 6.10 [facility] x10(3)/[facility] L LABORATORY Lymphocytes % 6.0 % [facility] LABORATORY Lymphocytes Abs 0.8 (L) 0.9 - 3.2 [facility] x10(3)/[facility] LABORATORY Monocytes % 7.5 % [facility] LABORATORY Monocyte Abs 1.0 (H) 0.3 - 0.9 [facility] x10(3)/[facility] LABORATORY Eosinophils % 2.0 % [facility] LABORATORY Eosinophils Abs 0.3 0.0 - 0.4 [facility] x10(3)/[facility] LABORATORY Basophils % 0.3 % [facility] LABORATORY Basophils Abs 0.0 0.0 - 0.1 [facility] x10(3)/[facility] LABORATORY Immature Gran % 0.50 % [...] Gran Abs 0.06 (H) 0.00 - 0.04 x10(3)/[facility] LABORATORY Specimen Anatomical Collection Method Collection Time Receive d Time (Source) Location / / Volume Laterality Blood specimen 08/11/2017 6:16 AM 018 6:24 (specimen) EST AM EST Resulting Agency Comment Spec In Lab Yonathan Smith MD HEMATOLOGY ORDERABLES Performing Organization Address City/State/[place] [address] (ABNORMAL) Hemogram (08/11/2017 6:16 AM EST) Analysis Performed At Patho logist Time Signature WBC 12.9 (H) 4.0 - 9.5 [facility] x10(3)/[facility] LABORATORY RBC 3.28 (L) 4.58 - [facility] 5.54 [facility] x10(6)/[facility] LABORATORY Hemoglobin 9.5 (L) 13.7 - [facility] 16.5 gm/dL [facility] LABORATORY Hematocrit 29.8 (L) 40.5 - [place] [facility] 48.5 % [facility] LABORATORY MCV 90.9 82.9 - [facility]1 [facility] LABORATORY MCH 29.0 27.5 - [place] [facility]IS 32.1 [facility] LABORATORY MCHC 31.9 (L) 32.0 - [place] [facility]IS 35.7 gm/dL [facility] Platelets 236 145 - 357 [facility] x10(3)/[facility] LABORATORY RDWSD 53.5 (H) 36.0 - [place] [facility] 45.0 [facility] LABORATORY RDWCV 16.3 (H) 11.4 - [facility] 13.8 % [facility] LABORATORY MPV 8.8 7.6 - 12.9 [facility] nRBC % Auto 0.0 % [facility] nRBC Abs Auto 0.000 0.000 - [facility] 0.000 [facility] x10(3)/[facility] LABORATORY Specimen Anatomical Collection Method Collection Time Receive d Time (Source) Location / / Volume Laterality Blood specimen 08/11/2017 6:16 AM 018 6:24 (specimen) EST AM EST Resulting Agency Comment Spec In Lab Yonathan Smith MD HEMATOLOGY ORDERABLES Performing Organization Address City/State/ZIP Code Phon e Number [place] [id number] (ABNORMAL) Prothrombin Time (08/11/2017 [...] Organization Address City/State/[place] [address] Basic Metabolic Panel (non-fasting) (08/11/2017 6:16 AM EST) P athologist Signature Glucose Lvl 139 65 - 199 [facility] mg/dL [facility] LABORATORY Comment: [...] [facility] LAB[facility]ORY Estimated GFR >60 >=60 [facility] LABORATORY Comment: The reported eGFR should be multiplied b y 1.2 for patients. The MDRD is not an appropriate measure o f renal function for patients with body mass extremes or in patients with acute kidney failure. http://Global Fil[employer]/DHnkdep http://Global Filmd[employer]/DHMCnkf Specimen Anatomical Collection Method Collection Time Receive d Time (Source) Location / / Volume Laterality Blood specimen 08/11/2017 6:16 AM 018 6:24 (specimen) EST AM EST Resulting Agency Comment Spec In Lab Yonathan Smith MD CHEMISTRY ORDERABLES Performing Organization Address City/State/ZIP Code Phon e Number [address] POCT Glucose (08/11/2017 4:07 AM EST) athologist Signature POC Glucose 162 65 - 199 [place] ZHA[facility]U mg/dL [facility] LABORATORY Comment: Supplemental ranges: <140 mg/dL before meals <180 mg/dL all other times of the day Specimen Anatomical Collection Method Collection Time Receive d Time (Source) Location / / Volume Laterality Blood specimen 08/11/2017 4:07 AM 018 4:07 (specimen) EST AM EST Yonathan Smith MD POINT OF CARE TEST ORDERABLE S Performing Organization Address City/[facility]/ZIP Code Phon e Number [place] [address] POCT Glucose (08/10/2017 11:59 PM EST) athologist Signature POC Glucose 166 65 - 199 [place] [facility]U mg/dL [facility] LABORATORY Comment: Supplemental ranges: <140 mg/dL before meals <180 mg/dL all other times of the day Specimen Anatomical Collection Method Collection Time Receive d Time (Source) Location / / Volume Laterality Blood specimen 08/10/2017 11:59 8 (specimen) PM EST 11:59 PM EST Yonathan Smith MD POINT OF CARE TEST ORDERABLE S Performing Organization Address City/[facility]/ZIP Code Phon e Number [place] [address] POCT Glucose (08/10/2017 8:12 PM EST) athologist Signature POC Glucose 156 65 - 199 [place] [facility] mg/dL [facility] LABORATORY Comment: Supplemental ranges: <140 mg/dL before meals <180 mg/dL all other times of the day Specimen Anatomical Collection Method Collection Time Receive d Time (Source) Location / / Volume Laterality Blood specimen 08/10/2017 8:12 PM 018 8:12 (specimen) EST PM EST Yonathan Smith MD POINT OF CARE TEST ORDERABLE S Performing Organization Address City/State/ZIP [place] [address] (ABNORMAL) POCT Glucose (08/10/2017 4:42 PM EST) P athologist Signature POC Glucose 211 (H) 65 - 199 [facility] LABORATORY Comment: Supplemental ranges: <140 mg/dL before meals <180 mg/dL all other times of the day Specimen Anatomical Collection Method Collection Time Receive d Time (Source) Location / / Volume Laterality Blood specimen 08/10/2017 4:42 PM 018 4:42 (specimen) EST PM EST Yonathan Smith MD POINT OF CARE TEST ORDERABLE S Performing Organization Address City/State/ZIP Code Phon e Number [address] (ABNORMAL) Differential, Automated (08/10/2017 2:30 PM EST) Patholo gist Method Time Signature Neutrophils % 87.6 % [facility] LABORATORY Neutr Abs (ANC) 9.90 (H) 1.70 - [facility] 6.10 [facility] x10(3)/[facility] L LABORATORY Lymphocytes % 4.3 % [facility] LABORATORY Lymphocytes Abs 0.5 (L) 0.9 - 3.2 [facility] x10(3)/[facility] LABORATORY Monocytes % 6.0 % [facility] LABORATORY Monocyte Abs 0.7 0.3 - 0.9 [facility] x10(3)/[facility] LABORATORY Eosinophils % 1.1 % [facility] LABORATORY Eosinophils Abs 0.1 0.0 - 0.4 [facility] x10(3)/[facility] LABORATORY Basophils % 0.4 % [facility] LABORATORY Basophils Abs 0.0 0.0 - 0.1 [facility] x10(3)/[facility] LABORATORY Immature Gran % 0.60 % [...] Organization Address City/State/[place] [address] (ABNORMAL) Hemogram (08/10/2017 2:30 PM EST) Analysis Performed At Patho logist Time Signature WBC 11.3 (H) 4.0 - 9.5 [facility] x10(3)/[facility] LABORATORY RBC 3.13 (L) 4.58 - [facility] SU 5.54 [facility] x10(6)/[facility] LABORATORY Hemoglobin 8.9 (L) 13.7 - [facility]m/dL [facility] LABORATORY Hematocrit 28.4 (L) 40.5 - [facility] 48.5 % [facility] LABORATORY MCV 90.7 82.9 - [facility] 93.1 [facility] LABORATORY MCH 28.4 27.5 - [facility] SU 32.1 pg [facility] LABORATORY MCHC 31.3 (L) 32.0 - [facility] 35.7 gm/dL [facility] LABORATORY Platelets 213 145 - 357 [facility] x10(3)/[facility] LABORATORY RDWSD 53.7 (H) 36.0 - [facility] SU 45.0 [facility] LABORATORY RDWCV 16.4 (H) 11.4 - [facility] SU 13.8 % [facility] LABORATORY MPV 8.9 7.6 - 12.9 [facility] LABORATORY nRBC % Auto 0.0 % [facility] LABORATORY nRBC Abs Auto 0.000 0.000 - [facility] SU 0.000 [facility] x10(3)/[facility] LABORATORY Specimen Anatomical Collection Method Collection Time Receive d Time (Source) Location / / Volume Laterality Blood specimen 08/10/2017 2:30 PM 018 2:48 (specimen) EST PM EST Resulting Agency Comment Spec In Lab Yonathan Smith MD HEMATOLOGY ORDERABLES Performing Organization Address City/State/ZIP [place] [address] (ABNORMAL) POCT Glucose (08/10/2017 1:50 PM EST) athologist Signature POC Glucose 243 (H) 65 - 199 [facility] LABORATORY Comment: Supplemental ranges: <140 mg/dL before meals <180 mg/dL all other times of the day Specimen Anatomical Collection Method Collection Time Receive d Time (Source) Location / / Volume Laterality Blood specimen 08/10/2017 1:50 PM 018 1:50 (specimen) EST PM EST Yonathan Smith MD POINT OF CARE TEST ORDERABLE S Performing Organization Address City/[facility]/ZIP [place] [address] POCT Glucose (08/10/2017 11:21 AM EST) athologist Signature POC Glucose 156 65 - 199 [facility] LABORATORY Comment: Supplemental ranges: <140 mg/dL before meals <180 mg/dL all other times of the day Specimen Anatomical Collection Method Collection Time Receive d Time (Source) Location / / Volume Laterality Blood specimen 08/10/2017 11:21 8 (specimen) AM EST 11:21 AM EST Yonathan Smith MD POINT OF CARE TEST ORDERABLE S Performing Organization Address City/State/ZIP [place] [address] (ABNORMAL) Differential, Automated (08/10/2017 10:28 AM EST) [facility] gist Method Time Signature Neutrophils % 85.3 % [facility] LABORATORY Neutr Abs (ANC) 9.43 (H) 1.70 - [facility] SU 6.10 [facility] x10(3)/[facility] L LABORATORY Lymphocytes % 5.5 % [facility] LABORATORY Lymphocytes Abs 0.6 (L) 0.9 - 3.2 [facility] x10(3)/[facility] LABORATORY Monocytes % 5.9 % [facility] LABORATORY Monocyte Abs 0.6 0.3 - 0.9 [facility] x10(3)/[facility] LABORATORY Eosinophils % 2.1 % [facility] LABORATORY Eosinophils Abs 0.2 0.0 - 0.4 [facility] x10(3)/[facility] LABORATORY Basophils % 0.4 % [facility] LABORATORY Basophils Abs 0.0 0.0 - 0.1 [facility] x10(3)/[facility] LABORATORY Immature Gran % 0.80 % [...] Gran Abs 0.09 (H) 0.00 - 0.04 x10(3)/[facility] LABORATORY Specimen Anatomical Collection Method Collection Time Receive d Time (Source) Location / / Volume Laterality Blood specimen 08/10/2017 10:28 8 (specimen) AM EST 10:35 AM EST Resulting Agency Comment Spec In Lab Yonathan Smith MD HEMATOLOGY ORDERABLES Performing Organization Address City/State/[place] [address] (ABNORMAL) Hemogram (08/10/2017 10:28 AM EST) Analysis Performed At Patho logist Time Signature WBC 11.0 (H) 4.0 - 9.5 [facility] x10(3)/[facility] LABORATORY RBC 3.02 (L) 4.58 - [facility] 5.54 [facility] x10(6)/[facility] LABORATORY Hemoglobin 8.8 (L) 13.7 - [facility] 16.5 gm/dL [facility] LABORATORY Hematocrit 28.1 (L) 40.5 - [place] [facility]IS 48.5 % [facility] LABORATORY MCV 93.0 82.9 - [facility] 93.1 [facility] LABORATORY MCH 29.1 27.5 - [place]IV[facility]CK 32.1 pg [facility] LABORATORY MCHC 31.3 (L) 32.0 - [place] DAVIS 35.7 gm/dL [facility] LABORATORY Platelets 207 145 - 357 [place] [place] x10(3)/[facility] LABORATORY RDWSD 55.3 (H) 36.0 - [facility]CK 45.0 [facility] LABORATORY RDWCV 16.4 (H) 11.4 - [place] SU 13.8 % [facility] LABORATORY MPV 9.0 7.6 - 12.9 [facility] LABORATORY nRBC % Auto 0.0 % [facility] LABORATORY nRBC Abs Auto 0.000 0.000 - [place] ZHAOSU 0.000 [facility] x10(3)/[facility] LABORATORY Specimen Anatomical Collection Method Collection Time Receive d Time (Source) Location / / Volume Laterality Blood specimen 08/10/2017 10:28 8 (specimen) AM EST 10:35 AM EST Resulting Agency Comment Spec In Lab Yonathan Smith MD HEMATOLOGY ORDERABLES Performing Organization Address City/State/ZIP Code Phon e Number [place] [id number] VS Angiogram/intervention (vascular) (08/10/2017 [...] 5. Completion RLE angiogram 6. L NUTRITION AIDE angiogram 7. 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 L NUTRITION AIDE access in the distal L NUTRITION AIDE. - Closure device: Mynx Technical Procedure: ?The [...] for a 45cm 5F Destination. V18 and [place] a nd QuickCross catheters were used to [...] Access appeared in the distal R NUTRITION AIDE. Closure and sheath removal was performed with [...] 5. Completion RLE angiogram 6. L NUTRITION AIDE angiogram 7. 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 L NUTRITION AIDE access in the distal L NUTRITION AIDE. - Closure device: Mynx Technical Procedure: The [...] for a 45cm 5F Destination. V18 and [place] a nd QuickCross catheters were used to [...] Access appeared in the distal R NUTRITION AIDE. Closure and sheath removal was performed with [...] (ABNORMAL) Differential, Automated (08/10/2017 5:50 AM EST) [facility] Method Time Signature Neutrophils % 80.1 % [facility] LABORATORY Neutr Abs (ANC) 9.01 (H) 1.70 - [facility] 6.10 [facility] x10(3)/[facility] LABORATORY Lymphocytes % 8.8 % [facility] LABORATORY Lymphocytes Abs 1.0 0.9 - 3.2 [facility] LABORATORY Monocytes % 8.3 % [facility] LABORATORY Monocyte Abs 0.9 0.3 - 0.9 [facility] LABORATORY Eosinophils % 2.0 % [facility] LABORATORY Eosinophils Abs 0.2 0.0 - 0.4 [facility] x10(3)/[facility] LABORATORY Basophils % 0.4 % [facility] LABORATORY Basophils Abs 0.0 0.0 - 0.1 [facility] x10(3)/[facility] LABORATORY Immature Gran [...] Gran Abs 0.05 (H) 0.00 - 0.04 x10(3)/[facility] LABORATORY Specimen Anatomical Collection Method Collection Time Receive d Time (Source) Location / / Volume Laterality Blood specimen 08/10/2017 5:50 AM 018 5:59 (specimen) EST AM EST Resulting Agency Comment Spec In Lab Yonathan Smith MD HEMATOLOGY ORDERABLES Performing Organization Address City/State/[place] [address] (ABNORMAL) Hemogram (08/10/2017 5:50 AM EST) Analysis Performed At Patho logist Time Signature WBC 11.3 (H) 4.0 - 9.5 [facility] x10(3)/[facility] LABORATORY RBC 3.15 (L) 4.58 - [facility] x10(6)/[facility] LABORATORY Hemoglobin 8.9 (L) 13.7 - [facility] 16.5 gm/dL [facility] LABORATORY Hematocrit 29.0 (L) 40.5 - [facility] 48.5 % [facility] LABORATORY MCV 92.1 82.9 - [facility] 93.1 [facility] LABORATORY MCH 28.3 27.5 - [place] [facility] 32.1 pg [facility] LABORATORY MCHC 30.7 (L) 32.0 - [facility] 35.7 gm/dL [facility] LABORATORY Platelets 231 145 - 357 [facility] x10(3)/[facility] LABORATORY RDWSD 53.9 (H) 36.0 - [place] 45.0 [facility] LABORATORY RDWCV 16.2 (H) 11.4 - [facility] SU 13.8 % [facility] LABORATORY MPV 8.7 7.6 - 12.9 [facility] LABORATORY nRBC % Auto 0.0 % [facility] LABORATORY nRBC Abs Auto 0.000 0.000 - [facility] 0.000 [facility] x10(3)/[facility] LABORATORY Specimen Anatomical Collection Method Collection Time Receive d Time (Source) Location / / Volume Laterality Blood specimen 08/10/2017 5:50 AM 018 5:59 (specimen) EST AM EST Resulting Agency Comment Spec In Lab Yonathan Smith MD HEMATOLOGY ORDERABLES Performing Organization Address City/State/[place] [address] (ABNORMAL) Basic Metabolic Panel (non-fasting) (08/10/2017 5:50 AM EST) P athologist Signature Glucose Lvl 135 65 - 199 [facility] mg/dL [facility] LABORATORY Comment: [...] [facility] Estimated GFR >60 >=60 [facility] LABORATORY Comment: The reported eGFR should be multiplied b y 1.2 for patients. The MDRD is not an appropriate measure o f renal function for patients with body mass extremes or in patients with acute kidney failure. http://[employer]/DHnkdep http://[employer]/DHMCnkf Specimen Anatomical Collection Method Collection Time Receive d Time (Source) Location / / Volume Laterality Blood specimen 08/10/2017 5:50 AM 018 5:59 (specimen) EST AM EST Resulting Agency Comment Spec In Lab Yonathan Smith MD CHEMISTRY ORDERABLES Performing Organization Address [facility] [place] [address] (ABNORMAL) Prothrombin Time (08/10/2017 [...] Smith MD HEMATOLOGY ORDERABLES Performing Organization Address City/[facility] [place] [address] (ABNORMAL) POCT Glucose (08/10/2017 4:01 AM EST) athologist Signature POC Glucose 206 (H) 65 - 199 [facility] mg/dL [facility] LABORATORY Comment: Supplemental ranges: <140 mg/dL before meals <180 mg/dL all other times of the day Specimen Anatomical Collection Method Collection Time Receive d Time (Source) Location / / Volume Laterality Blood specimen 08/10/2017 4:01 AM 018 4:01 (specimen) EST AM EST Yonathan Smith MD POINT OF CARE TEST ORDERABLE S Performing Organization Address City/State/ZIP [place] [address] POCT Glucose (08/10/2017 2:01 AM EST) athologist Signature POC Glucose 188 65 - 199 [place] mg/dL [facility] LABORATORY Comment: Supplemental ranges: <140 mg/dL before meals <180 mg/dL all other times of the day Specimen Anatomical Collection Method Collection Time Receive d Time (Source) Location / / Volume Laterality Blood specimen 08/10/2017 2:01 AM 018 2:01 (specimen) EST AM EST Yonathan Smith MD POINT OF CARE TEST ORDERABLE S Performing Organization Address City/[facility]/ZIP [place] [address] (ABNORMAL) POCT Glucose (08/09/2017 11:42 PM EST) athologist Signature POC Glucose 283 (H) 65 - 199 [facility] SU mg/dL [facility] LABORATORY Comment: Supplemental ranges: <140 mg/dL before meals <180 mg/dL all other times of the day Specimen Anatomical Collection Method Collection Time Receive d Time (Source) Location / / Volume Laterality Blood specimen 08/09/2017 11:42 8 (specimen) PM EST 11:42 PM EST Yonathan Smith MD POINT OF CARE TEST ORDERABLE S Performing Organization Address City/State/ZIP [place] [address] POCT Glucose (08/09/2017 8:55 PM EST) athologist Signature POC Glucose 182 65 - 199 [place] mg/dL [facility] LABORATORY Comment: Supplemental ranges: <140 mg/dL before meals <180 mg/dL all other times of the day Specimen Anatomical Collection Method Collection Time Receive d Time (Source) Location / / Volume Laterality Blood specimen 08/09/2017 8:55 PM 018 8:55 (specimen) EST PM EST Yonathan Smith MD POINT OF CARE TEST ORDERABLE S Performing Organization Address City/[facility]/ZIP [place] [address] (ABNORMAL) APTT (08/09/2017 6:42 [...] Smith MD HEMATOLOGY ORDERABLES Performing Organization Address City/[facility]/ZIP [place] [address] POCT Glucose (08/09/2017 4:41 PM EST) athologist Signature POC Glucose 195 65 - 199 [facility]/dL [facility] LABORATORY Comment: Supplemental ranges: <140 mg/dL before meals <180 mg/dL all other times of the day Specimen Anatomical Collection Method Collection Time Receive d Time (Source) Location / / Volume Laterality Blood specimen 08/09/2017 4:41 PM 018 4:41 (specimen) EST PM EST Yonathan Smith MD POINT OF CARE TEST ORDERABLE S Performing Organization Address City/[facility]/ZIP [place] [address] POCT Glucose (08/09/2017 12:29 PM EST) athologist Signature POC Glucose 140 65 - 199 [facility] mg/dL [facility] LABORATORY Comment: Supplemental ranges: <140 mg/dL before meals <180 mg/dL all other times of the day Specimen Anatomical Collection Method Collection Time Receive d Time (Source) Location / / Volume Laterality Blood specimen 08/09/2017 12:29 8 (specimen) PM EST 12:29 PM EST Yonathan Smith MD POINT OF CARE TEST ORDERABLE S Performing Organization Address [facility]/ZIP Code Phon e Number [address] POCT Glucose (08/09/2017 9:59 AM EST) P athologist Signature POC Glucose 135 65 - 199 [facility] mg/dL [facility] LABORATORY Comment: Supplemental ranges: <140 mg/dL before meals <180 mg/dL all other times of the day Specimen Anatomical Collection Method Collection Time Receive d Time (Source) Location / / Volume Laterality Blood specimen 08/09/2017 9:59 AM 018 9:59 (specimen) EST AM EST Yonathan Smith MD POINT OF CARE TEST ORDERABLE S Performing Organization Address [facility]/ZIP [place] [address] Specimen to Pathology (08/09/2017 [...] City/[facility]/ZIP [place] [address] Surgical Pathology Report (08/09/2017 8:40 AM EST) Component Value Ref Test Analysis Performed At Patholo gist Range Method Time Signature Surgical [id number] ? Location: [facility]; [facility]; [facility] Report The signing pathologist has [...] Henrique Flower Verified: ??08/13/2017 ?Pathologist Performed at: ??-[facility] [place], [place], [place] CLINICAL INFORMATION Specimen Submitted: A - [...] Organization Address City/State/[place] [address] Anaerobic Culture (08/09/2017 8:30 AM EST) [facility] Method Time Signature Anaerobic No anaerobic [facility] Culture organisms [facility] LABORATORY Specimen Anatomical Collection Method [...] - GENERAL ORDER ROBSON Performing Organization Address City/[facility]/ZIP [place] [address] (ABNORMAL) Abscess/Wound Aspirate Culture (08/09/2017 8:30 AM EST) [facility] [employer] Method Time Signature Abscess/Wound Moderate mixed [facility] Aspirate bacterial [place] Culture morphotypes [facility] normal LABORATORY cutaneous leroy (A) Gram Stain Rare White Blood Cells [place] Few Gram Positive Cocci in pairs [place] () [facility] LABORATORY Organism Gram Positive [place] Cocci in pairs [place] () [facility] LABORATORY Specimen Anatomical [...] - GENERAL ORDER ROBSON Performing Organization Address City/[facility]/ZIP Code Ph[place] [address] POCT Glucose (08/09/2017 4:28 AM EST) P athologist Signature POC Glucose 128 65 - 199 [facility] mg/dL [facility] LABORATORY Comment: Supplemental ranges: <140 mg/dL before meals <180 mg/dL all other times of the day Specimen Anatomical Collection Method Collection Time Receive d Time (Source) Location / / Volume Laterality Blood specimen 08/09/2017 4:28 AM 018 4:28 (specimen) EST AM EST Yonathan Smith MD POINT OF CARE TEST ORDERABLE S Performing Organization Address City/State/ZIP [place] [address] ABORH Recheck Status (08/09/2017 1:10 AM EST) [facility] Method Time Signature ABORH Type Completed [facility] LABORATORY Specimen Anatomical Collection Method Collection Time Receive d Time (Source) Location / / Volume Laterality Blood specimen 08/09/2017 1:10 AM 018 1:35 (specimen) EST AM EST Resulting Agency Comment Spec In Lab Yonathan Smith MD BLOOD BANK ORDERABLES Performing Organization Address City/State/ZIP [place] [address] Antibody screen (08/09/2017 1:10 AM EST) [facility] Method [place] Signature Ab Screen Negative [facility] LABORATORY Expires at 08/12/2017 [facility] [id number] on: [facility] LABORATORY Specimen Anatomical Collection Method Collection Time Receive d Time (Source) Location / / Volume Laterality Blood specimen 08/09/2017 1:10 AM 018 1:35 (specimen) EST AM EST Resulting Agency Comment Spec In Lab Yonathan Smith MD BLOOD BANK ORDERABLES Performing Organization Address City/State/ZIP [place] [address] ABO/Rh Typing (08/09/2017 1:10 [...] Organization Address City/State/ZIP [place] [address] (ABNORMAL) APTT (08/09/2017 1:10 [...] Organization Address City/State/[place] [address] (ABNORMAL) Differential, Automated (08/09/2017 1:10 AM EST) [facility] Method Time Signature Neutrophils % 76.2 % [facility] LABORATORY Neutr Abs (ANC) 8.59 (H) 1.70 - [facility] 6.10 [facility] x10(3)/[facility] LABORATORY Lymphocytes % 11.0 % [facility] LABORATORY Lymphocytes Abs 1.2 0.9 - 3.2 [facility] x10(3)/[facility] LABORATORY Monocytes % 8.4 % [facility] LABORATORY Monocyte Abs 1.0 (H) 0.3 - 0.9 [facility] x10(3)/[facility] LABORATORY Eosinophils % 3.5 % [facility] LABORATORY Eosinophils Abs 0.4 0.0 - 0.4 [facility] x10(3)/[facility] LABORATORY Basophils % 0.5 % [facility] LABORATORY Basophils Abs 0.1 0.0 - 0.1 [facility] x10(3)/[facility] LABORATORY Immature Gran [...] Gran Abs 0.05 (H) 0.00 - 0.04 x10(3)/[facility] LABORATORY Specimen Anatomical Collection Method Collection Time Receive d Time (Source) Location / / Volume Laterality Blood specimen 08/09/2017 1:10 AM 018 1:19 (specimen) EST AM EST Resulting Agency Comment Spec In Lab Yonathan Smith MD HEMATOLOGY ORDERABLES Performing Organization Address City/State/[place] [address] (ABNORMAL) Hemogram (08/09/2017 1:10 AM EST) Analysis Performed At Patho logist Time Signature WBC 11.3 (H) 4.0 - 9.5 [facility] x10(3)/[facility] LABORATORY RBC 3.47 (L) 4.58 - [facility] x10(6)/[facility] LABORATORY Hemoglobin 10.0 (L) 13.7 - [facility] 16.5 gm/dL [facility] LABORATORY Hematocrit 31.9 (L) 40.5 - [facility] 48.5 % [facility] LABORATORY MCV 91.9 82.9 - [facility] 93.1 [facility] LABORATORY MCH 28.8 27.5 - [facility] 32.1 pg [facility] LABORATORY MCHC 31.3 (L) 32.0 - [facility] 35.7 gm/dL [facility] LABORATORY Platelets 234 145 - 357 [facility] x10(3)/[facility] LABORATORY RDWSD 54.0 (H) 36.0 - [facility] SU 45.0 [facility] LABORATORY RDWCV 16.2 (H) 11.4 - [facility] SU 13.8 % [facility] LABORATORY MPV 8.7 7.6 - 12.9 [facility] LABORATORY nRBC % Auto 0.0 % [facility] LABORATORY nRBC Abs Auto 0.000 0.000 - [facility] SU 0.000 [facility] x10(3)/[facility] LABORATORY Specimen Anatomical Collection Method Collection Time Receive d Time (Source) Location / / Volume Laterality Blood specimen 08/09/2017 1:10 AM 018 1:19 (specimen) EST AM EST Resulting Agency Comment Spec In Lab Yonathan Smith MD HEMATOLOGY ORDERABLES Performing Organization Address City/[facility]/ZIP [place] [address] (ABNORMAL) Prothrombin Time (08/09/2017 [...] Smith MD HEMATOLOGY ORDERABLES Performing Organization Address City/[facility]/ZIP [place] [address] (ABNORMAL) Basic Metabolic Panel (non-fasting) (08/09/2017 1:10 AM EST) P athologist Signature Glucose Lvl 108 65 - 199 [facility] mg/dL [facility] LABORATORY Comment: [...] or in patients with acute kidney failure. http://[employer]/DHnkdep http://[employer]/DHMCnkf Specimen Anatomical Collection Method Collection Time Receive d Time (Source) Location / / Volume Laterality Blood specimen 08/09/2017 1:10 AM 018 1:19 (specimen) EST AM EST Resulting Agency Comment Spec In Lab Yonathan Smith MD CHEMISTRY ORDERABLES Performing Organization Address City/State/ZIP Code Phon e Number [address] POCT Glucose (08/09/2017 12:05 AM EST) athologist Signature POC Glucose 128 65 - 199 [facility] mg/dL [facility] LABORATORY Comment: Supplemental ranges: <140 mg/dL before meals <180 mg/dL all other times of the day Specimen Anatomical Collection Method Collection Time Receive d Time (Source) Location / / Volume Laterality Blood specimen 08/09/2017 12:05 8 (specimen) AM EST 12:05 AM EST Yonathan Smith MD POINT OF CARE TEST ORDERABLE S Performing Organization Address City/[facility]/ZIP [place] [address] (ABNORMAL) POCT Glucose (08/08/2017 7:36 PM EST) athologist Signature POC Glucose 215 (H) 65 - 199 [facility]dL [facility] LABORATORY Comment: Supplemental ranges: <140 mg/dL before meals <180 mg/dL all other times of the day Specimen Anatomical Collection Method Collection Time Receive d Time (Source) Location / / Volume Laterality Blood specimen 08/08/2017 7:36 PM 018 7:36 (specimen) EST PM EST Yonathan Smith MD POINT OF CARE TEST ORDERABLE S Performing Organization Address City/State/ZIP [place] [address] (ABNORMAL) POCT Glucose (08/08/2017 6:23 PM EST) P athologist Signature POC Glucose 216 (H) 65 - 199 [facility] mg/dL [facility] LABORATORY Comment: Supplemental ranges: <140 mg/dL before meals <180 mg/dL all other times of the day Specimen Anatomical Collection Method Collection Time Receive d Time (Source) Location / / Volume Laterality Blood specimen 08/08/2017 6:23 PM 018 6:23 (specimen) EST PM EST Yonathan Smith MD POINT OF CARE TEST ORDERABLE S Performing Organization Address City/[facility]/ZIP [place] [address] (ABNORMAL) APTT (08/08/2017 6:00 [...] Smith MD HEMATOLOGY ORDERABLES Performing Organization Address City/[facility]/ZIP Code [place] [address] POCT Glucose (08/08/2017 4:42 PM EST) athologist Signature POC Glucose 78 65 - 199 [facility] mg/dL [facility] LABORATORY Comment: Supplemental ranges: <140 mg/dL before meals <180 mg/dL all other times of the day Specimen Anatomical Collection Method Collection Time Receive d Time (Source) Location / / Volume Laterality Blood specimen 08/08/2017 4:42 PM 018 4:42 (specimen) EST PM EST Yonathan Smith MD POINT OF CARE TEST ORDERABLE S Performing Organization Address City/State/ZIP [place] [address] (ABNORMAL) POCT Glucose (08/08/2017 4:01 PM EST) athologist Signature POC Glucose 58 (L) 65 - 199 [facility] mg/dL [facility] LABORATORY Comment: Supplemental ranges: <140 mg/dL before meals <180 mg/dL all other times of the day Specimen Anatomical Collection Method Collection Time Receive d Time (Source) Location / / Volume Laterality Blood specimen 08/08/2017 4:01 PM 018 4:01 (specimen) EST PM EST Yonathan Smith MD POINT OF CARE TEST ORDERABLE S Performing Organization Address City/State/ZIP [place] [address] POCT Glucose (08/08/2017 11:51 AM EST) athologist Signature POC Glucose 90 65 - 199 [facility] mg/dL [facility] LABORATORY Comment: Supplemental ranges: <140 mg/dL before meals <180 mg/dL all other times of the day Specimen Anatomical Collection Method Collection Time Receive d Time (Source) Location / / Volume Laterality Blood specimen 08/08/2017 11:51 8 (specimen) AM EST 11:51 AM EST Yonathan Smith MD POINT OF CARE TEST ORDERABLE S Performing Organization Address City/State/ZIP [place] [address] (ABNORMAL) APTT (08/08/2017 10:27 [...] Address City/State/ZIP Code Phon e Number [address] POCT Glucose (08/08/2017 8:02 AM EST) athologist Signature POC Glucose 178 65 - 199 [facility] mg/dL [facility] LABORATORY Comment: Supplemental ranges: <140 mg/dL before meals <180 mg/dL all other times of the day Specimen Anatomical Collection Method Collection Time Receive d Time (Source) Location / / Volume Laterality Blood specimen 08/08/2017 8:02 AM 018 8:02 (specimen) EST AM EST Yonathan Smith MD POINT OF CARE TEST ORDERABLE S Performing Organization Address City/[facility]/ZIP Code [place] [address] (ABNORMAL) APTT (08/08/2017 4:51 AM EST) athologist Signature PTT >160 25 - 35 [facility] (Critical) sec [facility] LABORATORY Comment: Called by: HOWARD, Read [...] Organization Address City/State/[place] [address] (ABNORMAL) Differential, Automated (08/08/2017 4:51 AM EST) [facility] gist Method Time Signature Neutrophils % 77.9 % [facility] LABORATORY Neutr Abs (ANC) 8.17 (H) 1.70 - [facility] 6.10 [facility] x10(3)/[facility] LABORATORY Lymphocytes % 10.3 % [facility] LABOR[facility] Lymphocytes Abs 1.1 0.9 - 3.2 [facility] x10(3)/[facility] LABORATORY Monocytes % 7.0 % [facility] Monocyte Abs 0.7 0.3 - 0.9 [facility] x10(3)/[facility] LABORATORY Eosinophils % 3.6 % [facility] Eosinophils Abs 0.4 0.0 - 0.4 [facility] x10(3)/[facility] LABORATORY Basophils % 0.5 % [facility] Basophils Abs 0.0 0.0 - 0.1 [facility] x10(3)/[facility] LABORATORY Immature Gran % 0.70 % [...] Organization Address City/State/ZIP [place] [address] (ABNORMAL) Hemogram (08/08/2017 4:51 AM EST) Analysis Performed At Patho logist Time Signature WBC 10.5 (H) 4.0 - 9.5 [facility] LABORATORY RBC 3.27 (L) 4.58 - [place] [facility] 5.54 [facility] x10(6)/[facility] LABORATORY Hemoglobin 9.3 (L) 13.7 - [place] [facility] 16.5 gm/dL [facility]ORATORY Hematocrit 30.3 (L) 40.5 - [facility] 48.5 % [facility] MCV 92.7 82.9 - [facility] 93[facility]1 [facility] LABORATORY MCH 28.4 27.5 - [place] [facility] 32.1 pg [facility] LABORATORY MCHC 30.7 (L) 32.0 - [place] [facility] 35.7 gm/dL [facility] Platelets 252 145 - 357 [facility] x10(3)/[facility] LABORATORY RDWSD 54.6 (H) 36.0 - [place] [facility] 45.0 [facility] LABORATORY RDWCV 16.2 (H) 11.4 - [place] [facility] 13.8 % [facility]OR[facility]ORY MPV 9.1 7.6 - 12.9 [place] [facility] LABORATORY nRBC % Auto 0.0 % [facility] nRBC Abs Auto 0.000 0.000 - [place] [facility] 0.000 [facility] x10(3)/[facility] LABORATORY Specimen Anatomical Collection Method Collection Time Receive d Time (Source) Location / / Volume Laterality Blood specimen 08/08/2017 4:51 AM 018 5:14 (specimen) EST AM EST Resulting Agency Comment Spec In Lab Yonathan Smith MD HEMATOLOGY ORDERABLES Performing Organization Address City/State/ZIP [place] [address] (ABNORMAL) Prothrombin Time (08/08/2017 [...] Organization Address City/State/[place] [address] (ABNORMAL) Basic Metabolic Panel (non-fasting) (08/08/2017 4:51 AM EST) athologist Signature Glucose Lvl 229 (H) 65 - 199 [facility] mg/dL [facility]ORY Comment: [...] or in patients with acute kidney failure. [email or web address] [email or web address] Specimen Anatomical Collection Method Collection Time Receive d Time (Source) Location / / Volume Laterality Blood specimen 08/08/2017 4:51 AM 018 5:14 (specimen) EST AM EST Resulting Agency Comment Spec In Lab Yonathan Smith MD CHEMISTRY ORDERABLES Performing Organization Address City/[facility]/ZIP Code Phon e Number [address] POCT Glucose (08/08/2017 4:20 AM EST) athologist Signature POC Glucose 193 65 - 199 [facility] mg/dL [facility] Comment: Supplemental ranges: <140 mg/dL before meals <180 mg/dL all other times of the day Specimen Anatomical Collection Method Collection Time Receive d Time (Source) Location / / Volume Laterality Blood specimen 08/08/2017 4:20 AM 018 4:20 (specimen) EST AM EST Yonathan Smith MD POINT OF CARE TEST ORDERABLE S Performing Organization Address City/State/ZIP Code Phon e Number [address] POCT Glucose (08/07/2017 11:11 PM EST) athologist Signature POC Glucose 124 65 - 199 [facility] Comment: Supplemental ranges: <140 mg/dL before meals <180 mg/dL all other times of the day Specimen Anatomical Collection Method Collection Time Receive d Time (Source) Location / / Volume Laterality Blood specimen 08/07/2017 11:11 8 (specimen) PM EST 11:11 PM EST Yonathan Smith MD POINT OF CARE TEST ORDERABLE S Performing Organization Address City/[facility]/ZIP [place] [address] (ABNORMAL) APTT (08/07/2017 10:18 [...] Smith MD HEMATOLOGY ORDERABLES Performing Organization Address City/[facility]/ZIP Code [place] [address] POCT Glucose (08/07/2017 8:10 PM EST) athologist Signature POC Glucose 140 65 - 199 [facility] mg/dL [facility]ORY Comment: Supplemental ranges: <140 mg/dL before meals <180 mg/dL all other times of the day Specimen Anatomical Collection Method Collection Time Receive d Time (Source) Location / / Volume Laterality Blood specimen 08/07/2017 8:10 PM 018 8:10 (specimen) EST PM EST Yonathan Smith MD POINT OF CARE TEST ORDERABLE S Performing Organization Address City/[facility]/ZIP [place] [address] POCT Glucose (08/07/2017 5:27 PM EST) athologist Signature POC Glucose 187 65 - 199 [facility]dL [facility] Comment: Supplemental ranges: <140 mg/dL before meals <180 mg/dL all other times of the day Specimen Anatomical Collection Method Collection Time Receive d Time (Source) Location / / Volume Laterality Blood specimen 08/07/2017 5:27 PM 018 5:27 (specimen) EST PM EST Yonathan Smith MD POINT OF CARE TEST ORDERABLE S Performing Organization Address City/[facility]/ZIP [place] [address] POCT Glucose (08/07/2017 3:29 PM EST) athologist Signature POC Glucose 86 65 - 199 [facility]dL [facility] Comment: Supplemental ranges: <140 mg/dL before meals <180 mg/dL all other times of the day Specimen Anatomical Collection Method Collection Time Receive d Time (Source) Location / / Volume Laterality Blood specimen 08/07/2017 3:29 PM 018 3:29 (specimen) EST PM EST Yonathan Smith MD POINT OF CARE TEST ORDERABLE S Performing Organization Address [facility]/ZIP [facility] [place] [address] (ABNORMAL) APTT (08/07/2017 2:50 [...] Smith MD HEMATOLOGY ORDERABLES Performing Organization Address City/[facility]/ZIP [facility] Phon e Number [address] (ABNORMAL) POCT Glucose (08/07/2017 2:23 PM EST) athologist Signature POC Glucose 55 (L) 65 - 199 [place] mg/dL [facility]OR[facility]ORY Comment: Supplemental ranges: <140 mg/dL before meals <180 mg/dL all other times of the day Specimen Anatomical Collection Method Collection Time Receive d Time (Source) Location / / Volume Laterality Blood specimen 08/07/2017 2:23 PM 018 2:23 (specimen) EST PM EST Yonathan Smith MD POINT OF CARE TEST ORDERABLE S Performing Organization Address City/State/ZIP Code Phon e Number [address] POCT Glucose (08/07/2017 12:08 PM EST) P athologist Signature POC Glucose 77 65 - 199 [facility]dL [facility] Comment: Supplemental ranges: <140 mg/dL before meals <180 mg/dL all other times of the day Specimen Anatomical Collection Method Collection Time Receive d Time (Source) Location / / Volume Laterality Blood specimen 08/07/2017 12:08 8 (specimen) PM EST 12:08 PM EST Yonathan Smith MD POINT OF CARE TEST ORDERABLE S Performing Organization Address City/State/ZIP Code Phon e Number [address] (ABNORMAL) Differential, Automated (08/07/2017 7:30 AM EST) Patholo gist Method Time Signature Neutrophils % 73.8 % [facility] Neutr Abs (ANC) 7.17 (H) 1.70 - [facility] 6.10 [facility] x10(3)/[facility] LABORATORY Lymphocytes % 12.2 % [facility] Lymphocytes Abs 1.2 0.9 - 3.2 [facility] x10(3)/[facility] LABORATORY Monocytes % 9.0 % [facility] Monocyte Abs 0.9 0.3 - 0.9 [facility] x10(3)/[facility] LABORATORY Eosinophils % 3.9 % [facility] Eosinophils Abs 0.4 0.0 - 0.4 [facility] x10(3)/[facility] LABORATORY Basophils % 0.6 % [facility] Basophils Abs 0.1 0.0 - 0.1 [facility] x10(3)/[facility] LABORATORY Immature Gran % 0.50 % [...] Gran Abs 0.05 (H) 0.00 - 0.04 x10(3)/[facility] LABORATORY Specimen Anatomical Collection Method Collection Time Receive d Time (Source) Location / / Volume Laterality Blood specimen 08/07/2017 7:30 AM 018 7:45 (specimen) EST AM EST Resulting Agency Comment Spec In Lab Yonathan Smith MD HEMATOLOGY ORDERABLES Performing Organization Address City/State/[place] [address] (ABNORMAL) Hemogram (08/07/2017 7:30 AM EST) Analysis Performed At Patho logist Time Signature WBC 9.7 (H) 4.0 - 9.5 [facility] x10(3)/[facility] LABORATORY RBC 3.54 (L) 4.58 - [facility] 5.54 [facility] x10(6)/[facility] LABORATORY Hemoglobin 9.9 (L) 13.7 - [facility] 16.5 gm/dL [facility] LABORATORY Hematocrit 32.3 (L) 40.5 - [facility] 48.5 % [facility]ORATORY MCV 91.2 82.9 - [facility] 93.1 [facility] LABORATORY MCH 28.0 27.5 - [facility] 32.1 pg [facility] LABORATORY MCHC 30.7 (L) 32.0 - [facility] 35.7 gm/dL [facility] LABORATORY Platelets 312 145 - 357 [facility] x10(3)/[facility] LABORATORY RDWSD 53.2 (H) 36.0 - [facility] 45.0 [facility] LABORATORY RDWCV 16.0 (H) 11.4 - [facility] 13.8 % [facility] LABORATORY MPV 8.9 7.6 - 12.9 [facility] LABORATORY nRBC % Auto 0.0 % [facility] LABOR[facility]ORY nRBC Abs Auto 0.000 0.000 - [facility] 0.000 [facility] x10(3)/[facility] LABORATORY Specimen Anatomical Collection Method Collection Time Receive d Time (Source) Location / / Volume Laterality Blood specimen 08/07/2017 7:30 AM 018 7:45 (specimen) EST AM EST Resulting Agency Comment Spec In Lab Yonathan Smith MD HEMATOLOGY ORDERABLES Performing Organization Address City/State/[place] [address] (ABNORMAL) Basic Metabolic Panel (non-fasting) (08/07/2017 7:30 AM EST) P athologist Signature Glucose Lvl 80 65 - 199 [facility] mg/dL [facility]ORY Comment: [...] or in patients with acute kidney failure. [email or web address] [email or web address] Specimen Anatomical Collection Method Collection Time Receive d Time (Source) Location / / Volume Laterality Blood specimen 08/07/2017 7:30 AM 018 7:45 (specimen) EST AM EST Resulting Agency Comment Spec In Lab Yonathan Smith MD CHEMISTRY ORDERABLES Performing Organization Address City/[facility] Phon e Number [address] POCT Glucose (08/07/2017 7:27 AM EST) athologist Signature POC Glucose 81 65 - 199 [facility] mg/dL [facility] LABORATORY Comment: Supplemental ranges: <140 mg/dL before meals <180 mg/dL all other times of the day Specimen Anatomical Collection Method Collection Time Receive d Time (Source) Location / / Volume Laterality Blood specimen 08/07/2017 7:27 AM 018 7:27 (specimen) EST AM EST Yonathan Smith MD POINT OF CARE TEST ORDERABLE S Performing Organization Address [facility] Phon e Number [address] APTT (08/07/2017 7:04 [...] Smith MD HEMATOLOGY ORDERABLES Performing Organization Address City/[facility]/ZIP [place] [address] (ABNORMAL) Prothrombin Time (08/07/2017 [...] Organization Address City/State/ZIP [place] [address] POCT Glucose (08/07/2017 4:03 AM EST) athologist Signature POC Glucose 93 65 - 199 [facility]dL [facility]ORY Comment: Supplemental ranges: <140 mg/dL before meals <180 mg/dL all other times of the day Specimen Anatomical Collection Method Collection Time Receive d Time (Source) Location / / Volume Laterality Blood specimen 08/07/2017 4:03 AM 018 4:03 (specimen) EST AM EST Yonathan Smith MD POINT OF CARE TEST ORDERABLE S Performing Organization Address City/State/ZIP [place] [address] POCT Glucose (08/07/2017 12:04 AM EST) athologist Signature POC Glucose 107 65 - 199 [facility]/dL [facility]ORY Comment: Supplemental ranges: <140 mg/dL before meals <180 mg/dL all other times of the day Specimen Anatomical Collection Method Collection Time Receive d Time (Source) Location / / Volume Laterality Blood specimen 08/07/2017 12:04 8 (specimen) AM EST 12:04 AM EST Yonathan Smith MD POINT OF CARE TEST ORDERABLE S Performing Organization Address City/State/ZIP Code Phon e Number [address] POCT Glucose (08/06/2017 7:56 PM EST) P athologist Signature POC Glucose 178 65 - 199 [facility] mg/dL [facility] LABORATORY Comment: Supplemental ranges: <140 mg/dL before meals <180 mg/dL all other times of the day Specimen Anatomical Collection Method Collection Time Receive d Time (Source) Location / / Volume Laterality Blood specimen 08/06/2017 7:56 PM 018 7:56 (specimen) EST PM EST Yonathan Smith MD POINT OF CARE TEST ORDERABLE S Performing Organization Address City/State/ZIP Code Phon e Number [address] [id number] (08/06/2017 2:32 PM EST) Component Value Ref Test Analysis Performed At Patholo gist Range Method Time Signature VB Text Department: Vascular Surgery Lab VASCUBASE Report Patient: [id number] (GREGORY HOANG) CPT: [id number] ICD10: I99.8 Referring Physician: YONATHAN SMITH ?? [...] Provider: Henrique Marks RN)1134 (Given - Provider: Chiqius Mcgrath RN)1725 (Given - Provider: Chiquis Mcgrath [...] Oral, EVERY 24 HOURS, First dose on Viis 08/12/17 at 1400, If the daily warfarin [...] 0454 (Given - P rovider: Henrique Marks RN)08 (Given - Provider: hCiquis Mcgrath RN)1135 (Given - Provider: Chiquis Mcgrath [...]
Routine documented in this encounter Care Teams Woods Boss Relationship Specialty Start Date End Date Lovely Vicente MD PCP - General 04/16/[address] [place] [address] [address] [place] [address] documented as of this encounter
--- OUTSIDE RECORDS SUMMARY | 2022-04-20 08:14 | XMS_ITS | Encounter Summary ---
:1945 Author Organization [facility] [place] [address] Care Team Providers Name Role Phone Lovely Vicente MD Primary Care Provider Reason for Visit Auth/Cert Specialty Diagnoses / Procedures Referred By Contact Refer red To Contact Diagnoses Critical lower limb ischemia CELLULITIS RT FOOT Procedures EMERGENCY Referral ID Status Reason Start Date Expiration Date Visits Requ ested Visits Authorized [id number] 1 1 Encounter Details Date Type Department Care Team Description 08/11/2017 Surgery Main Operating Room Yonathan Smith (M SURG) DRESSING CHANGE Barbara Ocampo MD (FOR OTHER THAN IVAN) [facility] UNDER ANES. (WRVU 0.86) [facility] [address] [place] [address] [place] [id number] [phone] (Wo rk) Social History Tobacco Use Types [...] oHang Patient Age: 72 y.o. 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 Patient [...] Dorsalis Pedis (Ankle) Artery ?132 ? 0.94 ??Tyrrell-Biphasic ? Posterior Tibial (Ankle) Artery ??154 ? 1.10 ??Tyrrell-Biphasic ? Fourth Toe ? 67 ?0.48 ?? [...] the foot. Discharge Conditions/Prognosis: Good Discharge to: [facility] Discharge Medications: Your Medications New Medications [...] For any problems or questions please call [phone] ZELDA Smith, revival clerk Nurse Clinician For issues on weeknights after 5pm and weekends please call [phone] and ask for the Vascular Fellow director operations. General Instructions None Future Appointments and Orders Future Appointments Provider Department Dept Phone 08/26/2017 4:00 PM Aurelia Rivera PA Vascular Surgery at [place] [phone] 09/07/2017 3:00 PM LAB, THREE L Lab 3L [facility] [phone] 09/07/2017 4:00 PM Luz Prescott MD Endocrinology at [place] [phone] 09/09/2017 8:00 AM Barbra Soares APRN Pain Management at [place] [phone] Please bring a list of your current [...] For any problems or questions please call [phone] ZELDA Smith, revival clerk Nurse Clinician For issues on weeknights after 5pm and weekends please call [phone] and ask for the Vascular Fellow director operations. documented in this encounter Medications at [...] of Care Management Discharge Note Patient Destination: [facility] ([facility]) [address] [place] [id number] Transportation: with (at bedside) Time of Discharge: by 12 noon Level of Care: swing Patient Aware: yes Family Notified: yes Md to call report to: Yissel Quintero ELIGIBILITY CLERK already called RN to call report to: [phone] Shirin Wolf Office of Care Management Pager [phone] Shirin Wagner RN - 08/16/2017 10:50 AM EST [facility] has offered pt swing bed. Pt and accept bed. will transport via car. ELIGIBILITY CLERK Yissel Quintero aware; d/c paperwork will be completed by 12 noon. [facility] requests pt arrival by 1400 today; ELIGIBILITY CLERK, RN, and family aware. ELIGIBILITY CLERK called [facility] and was told that they prefer pt to arrive with wound vac dressing applied but clamped. ELIGIBILITY CLERK applied new wound vac dressing. RN has [facility] number to call report. PASSR completed; ELIGIBILITY CLERK paged to request provider signature in highlighted space. Indigo from [facility] notified via email that home wound vac now cancelled; [facility] has picked up from room and order cancelled. Packet started and provided to business unit controller. Medicare important message explained to patient, patient signed. Copy provided to patient and signature page to OCM for inclusion in pt EMR. Radha Georges - 08/16/2017 10:34 AM EST Office of Care Management/Gas Manager Patient Name: Gregory Haong : 1945 Patient has been offered a swing bed at [facility]. The patient will be transported by private transportation. No MD to MD report necessary Please call Nursing Report to [phone], ask for doctor of osteopathy. Info to accompany patient: Narcotic Prescriptions Copies of Medication Administration Records and IV sheets for past 10 days. Plan: Gas Manager will be available to the patient and Glass Cutter Helper-RN and/or Hand Mold Maker for further assistance. Patient will be discharged to: [facility] [address] [place] [address] [id number] Radha Powers, Gas Manager Mira Black, VAMSI - 08/15/2017 10:05 PM EST [address] Flores to ask if he wanted to hold metoprolol dose. BP 95/58. OK to hold this dose Courtney Brito - 08/15/2017 3:26 PM EST Office of Care Management(OCM)/Gas Manager(RS)/ D/C Planning re : Patient is medically ready for d/c today. RS has been in contact with [facility] to see if they could offer a bed. [facility] is still reviewing the case and need their MD to review chart prior to accepting or declining. OCM team needs to check in with [place] tomorrow to check on status. 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 Vac in [...] patient's referral to: [facility] PHONE: [phone] FAX: [phone] CM spoke with RS who said that [...] rehab. Await recommendations from PT. Covering pager #[phone]. 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 Specialized Language Instructor Kaitlin Saha, RN Pager #[phone] Payam Rosales - 08/13/2017 2:37 PM EST Hospital Receiving Clerk Encounter Note Patient Name: Gregory Hoang : [id number] MR#: [id number] Admit Date: 08/06/2017 1:41 PM Hospital Day 7 days Narrative: Visited to introduce and assess acceptance of Hospital Receiving Clerk services. Pt was awake, alert, oriented and in chair and family was there. Assessment:Patient coping positively with stresses of illness/hospitalization at this time. Pt says that he is hoping to get better and his family was there. Pt says that he has family care and supportand taking one day at time. Intervention and Outcome: Provided emotional support and encouraging presence. 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 Patient requests referral to [facility]. PHONE: [phone] FAX: [phone]. And Home NPWT (Negative Pressure Wound Therapy) aka wound vac device made available to pt. Serial # confirmed. Reviewed [facility] Proof of Delivery/Assignment of Benefits Statement(POD/AOB) Form w patient or authorized agent signing on behalf of patient. Copy of POD/AOB provided to pt and other copy faxed to [employer] @ fax# [phone] Expected date of discharge: 08/12/2017. 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 Address: [address] [place] [address] [place] [address] (home) Mobile: Telephone Information: Referring Provider: No [...] at [facility] ENDOSCOPY ??? PRO ENDOSCOPY W/VIDEO-ASST VEIN HARVEST, CABG Right 07/07/2017 ENDOSCOPIC HARVEST VEIN(S) FOR CABG (WRVU 0.31) performed by Yuan Retana MD at [facility] MAIN OR ??? 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 Heparin gtt continues to run. Pt [...] : 1945 AGE 72 y.o. Address: [address] [place] [address] [place] [address] (home) Mobile: Telephone Information: Referring Provider: No [...] at [facility] ENDOSCOPY ??? PRO ENDOSCOPY W/VIDEO-ASST VEIN HARVEST, CABG Right 07/07/2017 ENDOSCOPIC HARVEST VEIN(S) FOR CABG (WRVU 0.31) performed by Yuan Retana MD at [facility] MAIN OR ??? 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 Vascular resident director operations and will forward result to the team prior to rounds. 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 Patient [...] at [facility] ENDOSCOPY ??? PRO ENDOSCOPY W/VIDEO-ASST VEIN HARVEST, CABG Right 07/07/2017 ENDOSCOPIC HARVEST VEIN(S) FOR CABG (WRVU 0.31) performed by Yuan Retana MD at [facility] MAIN OR ??? PRO THYROIDECTOMY 03/28/2013 THYROIDECTOMY, TOTAL OR COMPLETE performed by Manny Mcknight MD at [facility] MAIN OR Functional Status/Social Hx: Quit [...] left blue toes with CTA showing R FUR STRETCHER pseudoaneurysm (now thrombosed) and occluded ATs bilaterally. [...] 2.5x80 5. Completion RLE angiogram 6. L FUR STRETCHER angiogram 7. 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 - L FUR STRETCHER angriogram demonstrated: High femoral bifurcation over the proximal half of the femoral head. L FUR STRETCHER access in the distal L FUR STRETCHER. - Closure device: Mynx Technical Procedure: The [...] for a 45cm 5F Destination. V18 and Toney and QuickCross catheters were used to select [...] 5F. A stationed picture of the L FUR STRETCHER was performed as the patient was noted to have a very high bifurcation. Access appeared in the distal R FUR STRETCHER. Closure and sheath removal was performed with [...] PM EST 1440 report called to 5 [place] nurse Tessa AGUSTIN documented in this encounter Miscellaneous Notes Plan of Care - Dory Truong RN - 08/16/2017 10:51 AM EST Problem: Patient Care Overview Goal: Plan of Care Review Outcome: Outcome (s) achieved Date Met: 08/16/17 08/14/17 1939 08/16/17 4501 Coping/Psychosocial Plan Of Care Reviewed With -- patient Plan of Care Review Progress improving -- Discussed discharge instructions with pt and pt's spouse. Discharge to [facility]. Goal: Individualization & Mutuality Outcome: Outcome (s) [...] sit/sit to supine -- Bed Mobility Goal, Upton Level independent -- Bed Mobility Goal, Date [...] days -- Transfer Training Goal, Activity Type rrw-rs-zqriu/lokud-ad-sji -- Transfer Train Goal, [place] Level conditional independence -- Transfer Train Goal, [...] call cabello within reach, Hourly rounding by RN/LOCOMOTIVE CRANE OPERATOR HELPER. Bed alarm / Chair alarm. [...] Smith MD - 08/15/2017 6:28 PM EST [facility] Operative Note Patient Name: Gregory Hoang : [id number] MR#: [id number] Case Date: 08/09/2017 Surgeon: Surgeon(s) and Role: [...] 2.5x80 5. Completion RLE angiogram 6. L FUR STRETCHER angiogram 7. Mynx closure Precautions/Restrictions: fall, sternal [...] other (see comments) (or swing bed) Pager: [phone] BASSAM ELIAS, PT 08/14/2017 Inpatient Physical Therapy [...] to Achieve by discharge Gait Training Goal, Upton Level conditional independence;set up required Gait Training [...] these facilities over the weekend except for [facility]. CM spoke with [facility] KANWAL Sandhu RN who said that they do not anticipate any beds over the weekend. Reviewed with patient/ that they need to be aware that patient will need to take the first bed offered at the facilities that they make referrals to. Their choices are: 1- [facility] PHONE: [phone] FAX: [phone] 2- [facility] ([facility]) [address] [place] [address] 3- [facility]) [address] [place] [address] I have discussed Medicare/Private Insurance [...] RS/CM on Wednesday to follow-up. Covering pager #[phone] for today. Plan of Care - Henrique [...] with additional findings of pseudoaneurysm on R FUR STRETCHER and bilateral anterior tibial artery occlusions. Was [...] an outpatient once discharged. Have patient call [phone] to set up an appointment. Follow-up: Dermatology will sign-off for now. Please do not hesitate to contact us if you have any questions orconcerns. Impression and Recommendations discussed with primary team on 08/13/2017. Karo Henderson MD Resident in Dermatology Section of Dermatology, Department of Surgery [facility] Pager [phone] Patient seen and evaluated with staff Tobacco Curer: Halima Cordero MD Section of Dermatology [facility] Level of Resident Supervision: Direct Supervision [...] 2.5x80 5. Completion RLE angiogram 6. L FUR STRETCHER angiogram 7. Mynx closure Active Non-Hospital Problems [...] home with home health ([facility] PT&OT) Pager: [phone] YASIR TELLO OT 08/12/2017 Occupational Therapy Rehabilitation [...] 2.5x80 5. Completion RLE angiogram 6. L FUR STRETCHER angiogram 7. Mynx closure Past Medical History: [...] with 24/7 assistance and maximal services) Pager: [phone] NICHOLAS MORA, JESSIE 08/12/2017 Physical Therapy Rehabilitation [...] sit/sit to supine -- Bed Mobility Goal, Upton Level independent -- Bed Mobility Goal, Outcome Achieved -- goal ongoing Goal: Gait Training Goal Stand Alone Therapy Goal Outcome: Ongoing (Interventions Implemented as Appropriate) 08/11/17 1310 08/12/17 1510 Gait Training Goal Gait Training Goal, Date Established 08/11/17 -- Gait Training Goal, Time to Achieve 5 - 7 days -- Gait Training Goal, Upton Level conditional independence -- Gait Training Goal, [...] days -- Transfer Training Goal, Activity Type vls-kr-rrsku/siknp-hu-nzq -- Transfer Train Goal, Upton Level conditional independence -- Transfer Training Goal, [...] Smith MD - 08/11/2017 2:52 PM EST [facility] Operative Note Patient Name: Gregory Hoang : [id number] MR#: [id number] Case Date: 08/11/2017 Surgeon: Surgeon(s) and Role: [...] 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 Smiht was present for the entire case. The [...] 2.5x80 5. Completion RLE angiogram 6. L FUR STRETCHER angiogram 7. Mynx closure He is very [...] Anticipated Discharge Disposition: inpatient rehabilitation facility Pager: [phone] LAWRENCE GONZALEZ, PT 08/11/2017 Physical Therapy Rehabilitation [...] to sit/sit to supine Bed Mobility Goal, U[place] Level independent Goal: Gait Training Goal Stand Alone Therapy Goal Outcome: Ongoing (Interventions Implemented as Appropriate) 08/11/17 1310 Gait Training Goal Gait Training Goal, Date Established 08/11/17 Gait Training Goal, Time to Achieve 5 - 7 days Gait Training Goal, U[place] Level conditional independence Gait Training Goal, Assist [...] 7 days Transfer Training Goal, Activity Type ypm-rr-dvfbz/nbqzl-yz-pfh Transfer Train Goal, U[place] Level conditional independence Plan of Care - [...] call cabello within reach, Hourly rounding by RN/LOCOMOTIVE CRANE OPERATOR HELPER. Bed alarm / Chair alarm. [...] 04/05/2013 Hospitalizations Within the Past 30 Days: [facility] 07/20/2017 Anticipated Length Of Stay (If known): Expected Length of Hospitalization: 5-7 days2-3 days Current Decision-Making Capacity: Alert and oriented x 4 Advance Care Planning: on file Kisha Honag [facility] [phone] Current Coping/Education/Information Needs: pt and spouse state [...] Health/Prescription Coverage: Primary Insurance: MEDICARE Secondary Insurance: [employer] [place] Prescription Coverage: See above Preferred Pharmacy: [facility] [id number] Other: N/A Primary Care Provider: Lovely Vicente MD [phone] Patient/Caregiver Goals of Treatment: Patient plans to return home when medically ready Potential Needs for Transition of Care: Rehab/SNF: N/A Home Health: [facility]. DME: pt has a cane and walker [...] of care planning. Kaitlin Saha RN Pager: [phone] Plan of Care - Melba Jaramillo RN [...] Overview Goal: Plan of Care Review 08/08/17 7284 Coping/Psychosocial Plan Of Care Reviewed With patient [...] call cabello within reach, Hourly rounding by RN/LOCOMOTIVE CRANE OPERATOR HELPER. Bed alarm / Chair alarm. [...] at bedside and MD TEAM Carrying pager [phone] contacted (via Radio page) and notified of [...] MD [facility] [place], [place] [address] (Wo rk) 05/28/2022 Laboratory Appointment Lab 05/28/2022 Office Visit Cardiology Zulma Dolan MD [facility] [place] [address] Liz Poole PA [facility] [place] [address] 06/10/2022 Office Visit Dermatology Laura Scherer MD [facility] [address] [place], [place] [address] (Wo rk) documented [...] 160 65 - 199 [place] mg/dL [facility] Comment: Supplemental ranges: <140 mg/dL before meals <180 mg/dL all other times of the day Specimen Anatomical Collection Method Collection Time Receive d Time (Source) Location / / Volume Laterality Blood specimen 08/16/2017 7:28 AM 018 7:28 (specimen) EST AM EST Yonathan Smith MD POINT OF CARE TEST ORDERABLE S Performing Organization Address City/State/[place] [address] (ABNORMAL) Differential, Automated (08/16/2017 5:08 AM EST) [facility] Method Time Signature Neutrophils % 73.9 % [facility] Neutr Abs (ANC) 5.37 1.70 - [facility] 6.10 [facility] x10(3)/[facility] LABORATORY Lymphocytes % 10.1 % [facility] Lymphocytes Abs 0.7 (L) 0.9 - 3.2 [facility] x10(3)/[facility] LABORATORY Monocytes % 10.1 % [facility] Monocyte Abs 0.7 0.3 - 0.9 [facility] x10(3)/[facility] LABORATORY Eosinophils % 5.1 % [facility] Eosinophils Abs 0.4 0.0 - 0.4 [facility] x10(3)/[facility] LABORATORY Basophils % 0.4 % [facility] Basophils Abs 0.0 0.0 - 0.1 [facility] x10(3)/[facility] LABORATORY Immature Gran % 0.40 [...] 0.04 x10(3)/[facility] Y [facility] LABORATORY Specimen Anatomical Collection Method Collection Time Receive d Time (Source) Location / / Volume Laterality Blood specimen 08/16/2017 5:08 AM 018 5:20 (specimen) EST AM EST Resulting Agency Comment Spec In Lab Yonathan Smith MD HEMATOLOGY ORDERABLES Performing Organization Address City/State/[place] [address] (ABNORMAL) Hemogram (08/16/2017 5:08 AM EST) Analysis Performed At Patho logist Time Signature WBC 7.3 4.0 - 9.5 [place] x10(3)/[facility] LABORATORY RBC 3.36 (L) 4.58 - [place] 5.54 [facility] x10(6)/[facility] LABORATORY Hemoglobin 9.7 (L) 13.7 - [facility] 16.5 gm/dL [facility] Hematocrit 30.3 (L) 40.5 - [place] 48.5 % [facility] MCV 90.2 82.9 - [facility] RYAN 93.1 [facility] LABORATORY MCH 28.9 27.5 - [place] 32.1 pg [facility] MCHC 32.0 32.0 - [place] 35.7 gm/dL [facility] Platelets 282 145 - [facility] x[facility](3[facility] LABORATORY RDWSD 53.9 (H) 36.0 - [place] 45.0 [facility] LABORATORY RDWCV 16.5 (H) 11.4 - [place] 13.8 % [facility] MPV 9.0 7.6 - 12.9 [place] [facility] LABORATORY nRBC % Auto 0.0 % [facility] nRBC Abs Auto 0.000 0.000 - [place] 0.000 [facility] x10(3)/[facility] LABORATORY Specimen Anatomical Collection Method Collection Time Receive d Time (Source) Location / / Volume Laterality Blood specimen 08/16/2017 5:08 AM 018 5:20 (specimen) EST AM EST Resulting Agency Comment Spec In Lab Yonathan Smith MD HEMATOLOGY ORDERABLES Performing Organization Address City/State/ZIP Code Phon e Number [place] [id number] [address] (ABNORMAL) Basic Metabolic Panel (non-fasting) (08/16/2017 5:08 AM EST) P athologist Signature Glucose Lvl 141 65 - 199 [facility] mg/dL [facility] Comment: [...] HOSPITAL LABORATORY Estimated GFR 57 (L) >=60 [facility] Comment: The reported eGFR should be multiplied b y 1.2 for patients. The MDRD is not an appropriate measure o f renal function for patients with body mass extremes or in patients with acute kidney failure. http://UPlanMe/DHnkdep http://UPlanMe/DHMCnkf Specimen Anatomical Collection Method Collection Time Receive d Time (Source) Location / / Volume Laterality Blood specimen 08/16/2017 5:08 AM 018 5:20 (specimen) EST AM EST Resulting Agency Comment Spec In Lab Yonathan Smith MD CHEMISTRY ORDERABLES Performing Organization Address City/State/[place] [address] (ABNORMAL) Prothrombin Time (08/16/2017 [...] Address City/[facility]/ZIP Code Phon e Number [address] POCT Glucose (08/16/2017 4:09 AM EST) athologist Signature POC Glucose 147 65 - [address] [facility] mg/dL [facility] Comment: Supplemental ranges: <140 mg/dL before meals <180 mg/dL all other times of the day Specimen Anatomical Collection Method Collection Time Receive d Time (Source) Location / / Volume Laterality Blood specimen 08/16/2017 4:09 AM 018 4:09 (specimen) EST AM EST Yonathan Smith MD POINT OF CARE TEST ORDERABLE S Performing Organization Address City/[facility]/ZIP Code Phon e Number [address] POCT Glucose (08/15/2017 11:56 PM EST) athologist Signature POC Glucose 176 65 - 199 [facility] mg/dL [facility] Comment: Supplemental ranges: <140 mg/dL before meals <180 mg/dL all other times of the day Specimen Anatomical Collection Method Collection Time Receive d Time (Source) Location / / Volume Laterality Blood specimen 08/15/2017 11:56 8 (specimen) PM EST 11:56 PM EST Yonathan Smith MD POINT OF CARE TEST ORDERABLE S Performing Organization Address City/[facility]/ZIP Code Phon e Number [address] POCT Glucose (08/15/2017 8:05 PM EST) athologist Signature POC Glucose 136 65 - 199 [place] mg/dL [facility] Comment: Supplemental ranges: <140 mg/dL before meals <180 mg/dL all other times of the day Specimen Anatomical Collection Method Collection Time Receive d Time (Source) Location / / Volume Laterality Blood specimen 08/15/2017 8:05 PM 018 8:05 (specimen) EST PM EST Yonathan Smith MD POINT OF CARE TEST ORDERABLE S Performing Organization Address City/State/[place] [address] (ABNORMAL) POCT Glucose (08/15/2017 4:50 PM EST) athologist Signature POC Glucose 232 (H) 65 - 199 [facility]dL [facility] Comment: Supplemental ranges: <140 mg/dL before meals <180 mg/dL all other times of the day Specimen Anatomical Collection Method Collection Time Receive d Time (Source) Location / / Volume Laterality Blood specimen 08/15/2017 4:50 PM 018 4:50 (specimen) EST PM EST Yonathan Smith MD POINT OF CARE TEST ORDERABLE S Performing Organization Address City/State/ZIP [place] [address] POCT Glucose (08/15/2017 12:04 PM EST) athologist Signature POC Glucose 135 65 - 199 [place] mg/dL [facility] Comment: Supplemental ranges: <140 mg/dL before meals <180 mg/dL all other times of the day Specimen Anatomical Collection Method Collection Time Receive d Time (Source) Location / / Volume Laterality Blood specimen 08/15/2017 12:04 8 (specimen) PM EST 12:04 PM EST Yonathan Smith MD POINT OF CARE TEST ORDERABLE S Performing Organization Address City/State/ZIP [place] [address] POCT Glucose (08/15/2017 7:36 AM EST) P athologist Signature POC Glucose 124 65 - 199 [facility] mg/dL [facility] Comment: Supplemental ranges: <140 mg/dL before meals <180 mg/dL all other times of the day Specimen Anatomical Collection Method Collection Time Receive d Time (Source) Location / / Volume Laterality Blood specimen 08/15/2017 7:36 AM 018 7:36 (specimen) EST AM EST Yonathan Smith MD POINT OF CARE TEST ORDERABLE S Performing Organization Address City/State/[place] [address] (ABNORMAL) Differential, Automated (08/15/2017 6:22 AM EST) Patholo gist Method Time Signature Neutrophils % 76.1 % [facility] LABORATORY Neutr Abs (ANC) 6.62 (H) 1.70 - [facility] 6.10 [facility] x10(3)/[facility] L LABORATORY Lymphocytes % 9.3 % [facility] LABORATORY Lymphocytes Abs 0.8 (L) 0.9 - 3.2 [facility] x10(3)/[facility] LABORATORY Monocytes % 9.4 % [facility] LABORATORY Monocyte Abs 0.8 0.3 - 0.9 [facility] x10(3)/[facility] LABORATORY Eosinophils % 4.0 % [facility] Eosinophils Abs 0.4 0.0 - 0.4 [facility] x10(3)/[facility] LABORATORY Basophils % 0.6 % [facility] LABORATORY Basophils Abs 0.0 0.0 - 0.1 [facility] x10(3)/[facility] LABORATORY Immature Gran % 0.60 % ST. [...] Gran Abs 0.05 (H) 0.00 - 0.04 x10(3)/[facility] LABORATORY Specimen Anatomical Collection Method Collection Time Receive d Time (Source) Location / / Volume Laterality Blood specimen 08/15/2017 6:22 AM 018 6:33 (specimen) EST AM EST Resulting Agency Comment Spec In Lab Yonathan Smith MD HEMATOLOGY ORDERABLES Performing Organization Address City/State/[place] [address] (ABNORMAL) Hemogram (08/15/2017 6:22 AM EST) Analysis Performed At Patho logist Time Signature WBC 8.7 4.0 - 9.5 [facility] x10(3)/[facility] LABORATORY RBC 3.21 (L) 4.58 - [facility] 5.54 [facility] x10(6)/[facility] LABORATORY Hemoglobin 9.1 (L) 13.7 - [facility] 16.5 gm/dL [facility] Hematocrit 29.0 (L) 40.5 - [facility] 48.5 % [facility]ORY MCV 90.3 82.9 - [facility] 93.1 [facility] LABORATORY MCH 28.3 27.5 - [facility] RYAN 32.1 pg [facility] LABORATORY MCHC 31.4 (L) 32.0 - [facility] 35.7 gm/dL [facility]ORY Platelets 254 145 - 357 [facility] x10(3)/[facility] LABORATORY RDWSD 53.9 (H) 36.0 - [facility] RYAN 45.0 [facility] LABORATORY RDWCV 16.3 (H) 11.4 - [facility] RYAN 13.8 % [facility] LABORATORY MPV 8.8 7.6 - 12.9 [facility] LABORATORY nRBC % Auto 0.0 % [facility] LABORATORY nRBC Abs Auto 0.000 0.000 - [facility] 0.000 [facility] x10(3)/[facility] LABORATORY Specimen Anatomical Collection Method Collection Time Receive d Time (Source) Location / / Volume Laterality Blood specimen 08/15/2017 6:22 AM 018 6:33 (specimen) EST AM EST Resulting Agency Comment Spec In Lab Yonathan Smith MD HEMATOLOGY ORDERABLES Performing Organization Address City/State/[place] [address] (ABNORMAL) Basic Metabolic Panel (non-fasting) (08/15/2017 6:22 AM EST) P athologist Signature Glucose Lvl 118 65 - 199 [facility] mg/dL [facility]ATORY Comment: [...] [facility] LAB[facility] Estimated GFR >60 >=60 [facility] LABORATORY Comment: The reported eGFR should be multiplied b y 1.2 for patients. The MDRD is not an appropriate measure o f renal function for patients with body mass extremes or in patients with acute kidney failure. http://[email or web address].Accelergy/DHnkdep http://159.com.Accelergy/DHMCnkf Specimen Anatomical Collection Method Collection Time Receive d Time (Source) Location / / Volume Laterality Blood specimen 08/15/2017 6:22 AM 018 6:33 (specimen) EST AM EST Resulting Agency Comment Spec In Lab Yonathan Smith MD CHEMISTRY ORDERABLES Performing Organization Address City/State/ZIP [place] [address] (ABNORMAL) Prothrombin Time (08/15/2017 [...] Address City/[facility]/ZIP [place] [address] POCT Glucose (08/15/2017 4:33 AM EST) athologist Signature POC Glucose 164 65 - [address] [facility]/dL [facility] Comment: Supplemental ranges: <140 mg/dL before meals <180 mg/dL all other times of the day Specimen Anatomical Collection Method Collection Time Receive d Time (Source) Location / / Volume Laterality Blood specimen 08/15/2017 4:33 AM 018 4:33 (specimen) EST AM EST Yonathan Smith MD POINT OF CARE TEST ORDERABLE S Performing Organization Address City/State/ZIP [place] [address] POCT Glucose (08/15/2017 12:12 AM EST) athologist Signature POC Glucose 89 65 - 199 [facility] mg/dL [facility] Comment: Supplemental ranges: <140 mg/dL before meals <180 mg/dL all other times of the day Specimen Anatomical Collection Method Collection Time Receive d Time (Source) Location / / Volume Laterality Blood specimen 08/15/2017 12:12 8 (specimen) AM EST 12:12 AM EST Yonathan Smith MD POINT OF CARE TEST ORDERABLE S Performing Organization Address City/State/ZIP [place] [address] (ABNORMAL) POCT Glucose (08/14/2017 8:07 PM EST) athologist Signature POC Glucose 204 (H) 65 - 199 [facility] mg/dL [facility] Comment: Supplemental ranges: <140 mg/dL before meals <180 mg/dL all other times of the day Specimen Anatomical Collection Method Collection Time Receive d Time (Source) Location / / Volume Laterality Blood specimen 08/14/2017 8:07 PM 018 8:07 (specimen) EST PM EST Yonathan Smith MD POINT OF CARE TEST ORDERABLE S Performing Organization Address City/State/ZIP [place] [address] POCT Glucose (08/14/2017 5:11 PM EST) athologist Signature POC Glucose 174 65 - 199 [place] mg/dL [facility] Comment: Supplemental ranges: <140 mg/dL before meals <180 mg/dL all other times of the day Specimen Anatomical Collection Method Collection Time Receive d Time (Source) Location / / Volume Laterality Blood specimen 08/14/2017 5:11 PM 018 5:11 (specimen) EST PM EST Yonathan Smith MD POINT OF CARE TEST ORDERABLE S Performing Organization Address City/State/ZIP [place] [address] POCT Glucose (08/14/2017 12:10 PM EST) athologist Signature POC Glucose 141 65 - 199 [facility] mg/dL [facility] Comment: Supplemental ranges: <140 mg/dL before meals <180 mg/dL all other times of the day Specimen Anatomical Collection Method Collection Time Receive d Time (Source) Location / / Volume Laterality Blood specimen 08/14/2017 12:10 8 (specimen) PM EST 12:10 PM EST Yonathan Smith MD POINT OF CARE TEST ORDERABLE S Performing Organization Address City/State/ZIP [place] [address] POCT Glucose (08/14/2017 8:07 AM EST) P athologist Signature POC Glucose 158 65 - [address] [facility] Comment: Supplemental ranges: <140 mg/dL before meals <180 mg/dL all other times of the day Specimen Anatomical Collection Method Collection Time Receive d Time (Source) Location / / Volume Laterality Blood specimen 08/14/2017 8:07 AM 018 8:07 (specimen) EST AM EST Yonathan Smith MD POINT OF CARE TEST ORDERABLE S Performing Organization Address City/State/ZIP [place] [address] (ABNORMAL) Differential, Automated (08/14/2017 4:52 AM EST) Patholo gist Method Time Signature Neutrophils % 78.6 % [facility] LABORATORY Neutr Abs (ANC) 7.70 (H) 1.70 - [facility] 6.10 [facility] x10(3)/[facility] L LABORATORY Lymphocytes % 7.8 % [facility] LABORATORY Lymphocytes Abs 0.8 (L) 0.9 - 3.2 [facility] x10(3)/[facility] LABORATORY Monocytes % 8.8 % [facility] LABORATORY Monocyte Abs 0.9 0.3 - 0.9 [facility] x10(3)/[facility] LABORATORY Eosinophils % 4.0 % [facility] LABORATORY Eosinophils Abs 0.4 0.0 - 0.4 [facility] x10(3)/[facility] LABORATORY Basophils % 0.5 % [facility] LABORATORY Basophils Abs 0.0 0.0 - 0.1 [facility] x10(3)/[facility] LABORATORY Immature Gran % 0.30 % ST. [...] Address City/State/[place] [address] (ABNORMAL) Hemogram (08/14/2017 4:52 AM EST) Analysis Performed At Patho logist Time Signature WBC 9.8 (H) 4.0 - 9.5 [facility] x10(3)/[facility] LABORATORY RBC 3.32 (L) 4.58 - [facility] 5.54 [facility] x10(6)/[facility] LABORATORY Hemoglobin 9.5 (L) 13.7 - [facility] 16.5 gm/dL [facility] LAB[facility]ORY Hematocrit 30.3 (L) 40.5 - [facility] 48.5 % [facility] LABORATORY MCV 91.3 82.9 - [facility] 93.1 [facility] LABORATORY MCH 28.6 27.5 - [facility] RYAN 32.1 pg [facility] LABORATORY MCHC 31.4 (L) 32.0 - [facility] 35.7 gm/dL [facility] Platelets 263 145 - 357 [facility] x10(3)/[facility] LABORATORY RDWSD 54.8 (H) 36.0 - [place] 45.0 [facility] LABORATORY RDWCV 16.5 (H) 11.4 - [facility] 13.8 % [facility] LABORATORY MPV 9.1 7.6 - 12.9 [facility] LABORATORY nRBC % Auto 0.0 % [facility] LABORATORY nRBC Abs Auto 0.000 0.000 - [facility] 0.000 [facility] x10(3)/[facility] LABORATORY Specimen Anatomical Collection Method Collection Time Receive d Time (Source) Location / / Volume Laterality Blood specimen 08/14/2017 4:52 AM 018 5:08 (specimen) EST AM EST Resulting Agency Comment Spec In Lab Yonathan Smith MD HEMATOLOGY ORDERABLES Performing Organization Address City/State/[place] [address] (ABNORMAL) Prothrombin Time (08/14/2017 [...] Address City/State/[place] [address] (ABNORMAL) Basic Metabolic Panel (non-fasting) (08/14/2017 4:52 AM EST) P athologist Signature Glucose Lvl 135 65 - 199 [facility] mg/dL [facility]ORY Comment: [...] HOSPITAL LABORATORY Estimated GFR 52 (L) >=60 [facility] LABORATORY Comment: The reported eGFR should be multiplied b y 1.2 for patients. The MDRD is not an appropriate measure o f renal function for patients with body mass extremes or in patients with acute kidney failure. http://UPlanMe/DHnkdep http://UPlanMe/DHnkf Specimen Anatomical Collection Method Collection Time Receive d Time (Source) Location / / Volume Laterality Blood specimen 08/14/2017 4:52 AM 018 5:08 (specimen) EST AM EST Resulting Agency Comment Spec In Lab Yonathan Smith MD CHEMISTRY ORDERABLES Performing Organization Address City/State/[place] [address] POCT Glucose (08/14/2017 3:56 AM EST) P athologist Signature POC Glucose 135 65 - 199 [facility] mg/dL [facility] Comment: Supplemental ranges: <140 mg/dL before meals <180 mg/dL all other times of the day Specimen Anatomical Collection Method Collection Time Receive d Time (Source) Location / / Volume Laterality Blood specimen 08/14/2017 3:56 AM 018 3:56 (specimen) EST AM EST Yonathan Smith MD POINT OF CARE TEST ORDERABLE S Performing Organization Address City/State/ZIP Code Phon e Number [address] POCT Glucose (08/13/2017 11:13 PM EST) athologist Signature POC Glucose 118 65 - 199 [facility] mg/dL [facility] Comment: Supplemental ranges: <140 mg/dL before meals <180 mg/dL all other times of the day Specimen Anatomical Collection Method Collection Time Receive d Time (Source) Location / / Volume Laterality Blood specimen 08/13/2017 11:13 8 (specimen) PM EST 11:13 PM EST Yonathan Smith MD POINT OF CARE TEST ORDERABLE S Performing Organization Address City/[facility]/ZIP [place] [address] (ABNORMAL) POCT Glucose (08/13/2017 8:08 PM EST) athologist Signature POC Glucose 204 (H) 65 - 199 [facility] mg/dL [facility] Comment: Supplemental ranges: <140 mg/dL before meals <180 mg/dL all other times of the day Specimen Anatomical Collection Method Collection Time Receive d Time (Source) Location / / Volume Laterality Blood specimen 08/13/2017 8:08 PM 018 8:08 (specimen) EST PM EST Yonathan Smith MD POINT OF CARE TEST ORDERABLE S Performing Organization Address City/State/ZIP [place] [address] POCT Glucose (08/13/2017 4:02 PM EST) athologist Signature POC Glucose 145 65 - 199 [facility] mg/dL [facility] Comment: Supplemental ranges: <140 mg/dL before meals <180 mg/dL all other times of the day Specimen Anatomical Collection Method Collection Time Receive d Time (Source) Location / / Volume Laterality Blood specimen 08/13/2017 4:02 PM 018 4:02 (specimen) EST PM EST Yonathan Smith MD POINT OF CARE TEST ORDERABLE S Performing Organization Address City/State/ZIP [place] [address] POCT Glucose (08/13/2017 11:31 AM EST) athologist Signature POC Glucose 179 65 - 199 [facility] mg/dL [facility] Comment: Supplemental ranges: <140 mg/dL before meals <180 mg/dL all other times of the day Specimen Anatomical Collection Method Collection Time Receive d Time (Source) Location / / Volume Laterality Blood specimen 08/13/2017 11:31 8 (specimen) AM EST 11:31 AM EST Yonathan Smith MD POINT OF CARE TEST ORDERABLE S Performing Organization Address City/[facility]/ZIP [place] [address] (ABNORMAL) POCT Glucose (08/13/2017 10:16 AM EST) athologist Signature POC Glucose 211 (H) 65 - 199 [facility] mg/dL [facility] Comment: Supplemental ranges: <140 mg/dL before meals <180 mg/dL all other times of the day Specimen Anatomical Collection Method Collection Time Receive d Time (Source) Location / / Volume Laterality Blood specimen 08/13/2017 10:16 8 (specimen) AM EST 10:16 AM EST Yonathan Smith MD POINT OF CARE TEST ORDERABLE S Performing Organization Address City/[facility]/ZIP [place] [address] JULAIN, legs, multiple levels (08/13/2017 7:42 AM EST) Component Value Ref Test Analysis Performed At Patholo gist Range Method Time Signature VB Text Department: Vascular Surgery Lab VASCUBASE Report Patient: [id number] (GREGORY HOANG) CPT: 68059 ICD10: I99.8 Referring Physician: YONATHAN SMITH ?? Indications: s/p R 1,2,3 toe amps with red left foot, need n ew baseline Diabetes mellitus: yes ICD10 Diagnosis Code: I99.8 Findings: Right ?Pressure (mm Hg) ?? JULIAN ??Waveform ?TBI ?? Brachial Artery ?138 ? Dorsalis Pedis (Ankle) Arter y ?132 ? 0.94 ??Tyrrell- Biphasic ? Posterior Tibial (Ankle) Art anila ??154 ? 1.10 ??Tyrrell-Biphasic ? Fourth Toe ? 67 ? 0.48 [...] Glucose 156 65 - 199 [facility] mg/dL [facility] Comment: Supplemental ranges: <140 mg/dL before meals <180 mg/dL all other times of the day Specimen Anatomical Collection Method Collection Time Receive d Time (Source) Location / / Volume Laterality Blood specimen 08/13/2017 7:33 AM 018 7:33 (specimen) EST AM EST Yonathan Smith MD POINT OF CARE TEST ORDERABLE S Performing Organization Address City/State/ZIP Code Phon e Number [place] [id number] [address] (ABNORMAL) Differential, Automated (08/13/2017 5:33 AM EST) [facility] Method Time Signature Neutrophils % 77.8 % [facility] LABORATORY Neutr Abs (ANC) 7.83 (H) 1.70 - [facility] 6.10 [facility] x10(3)/[facility] L LABORATORY Lymphocytes % 8.4 % [facility] LABORATORY Lymphocytes Abs 0.8 (L) 0.9 - 3.2 [facility] x10(3)/[facility] LABORATORY Monocytes % 8.3 % [facility] LABORATORY Monocyte Abs 0.8 0.3 - 0.9 [facility] x10(3)/[facility] LABORATORY Eosinophils % 4.6 % [facility] LABORATORY Eosinophils Abs 0.5 (H) 0.0 - 0.4 [facility] x10(3)/[facility] LABORATORY Basophils % 0.5 % [facility] LABORATORY Basophils Abs 0.0 0.0 - 0.1 [facility] x10(3)/[facility] LABORATORY Immature Gran % 0.40 % ST. [...] - 0.04 x10(3)/[facility] LABORATORY Specimen Anatomical Collection Method Collection Time Receive d Time (Source) Location / / Volume Laterality Blood specimen 08/13/2017 5:33 AM 018 6:04 (specimen) EST AM EST Resulting Agency Comment Spec In Lab Yonathan Smtih MD HEMATOLOGY ORDERABLES Performing Organization Address City/State/[place] [address] (ABNORMAL) Hemogram (08/13/2017 5:33 AM EST) Analysis Performed At Patho logist Time Signature WBC 10.1 (H) 4.0 - 9.5 [facility] x10(3)/[facility] LABORATORY RBC 3.21 (L) 4.58 - [facility] 5.54 [facility] x10(6)/[facility] LABORATORY Hemoglobin 9.2 (L) 13.7 - [facility] 16.[facility] gm/dL [facility] LABORATORY Hematocrit 29.6 (L) 40.5 - [facility] 48.5 % [facility] LABORATORY MCV 92.2 82.9 - [facility] 93.1 [facility] LABORATORY MCH 28.7 27.5 - [facility] 32.1 pg [facility] LABORATORY MCHC 31.1 (L) 32.0 - [facility] 35.7 gm/dL [facility] LABORATORY Platelets 263 145 - 357 [facility] x10(3)/[facility] LABORATORY RDWSD 54.8 (H) 36.0 - [facility] 45.0 [facility] LABORATORY RDWCV 16.4 (H) 11.4 - [facility] 13.8 % [facility] LABORATORY MPV 9.2 7.6 - 12.9 [facility] LABORATORY nRBC % Auto 0.0 % [facility] LABORATORY nRBC Abs Auto 0.000 0.000 - [facility] 0.000 [facility] x10(3)/[facility] LABORATORY Specimen Anatomical Collection Method Collection Time Receive d Time (Source) Location / / Volume Laterality Blood specimen 08/13/2017 5:33 AM 018 6:04 (specimen) EST AM EST Resulting Agency Comment Spec In Lab Yonathan Smith MD HEMATOLOGY ORDERABLES Performing Organization Address City/State/[place] [address] (ABNORMAL) Prothrombin Time (08/13/2017 [...] Address City/State/[place] [address] (ABNORMAL) Basic Metabolic Panel (non-fasting) (08/13/2017 5:33 AM EST) athologist Signature Glucose Lvl 126 65 - 199 [facility] mg/dL [facility]ORATORY Comment: [...] [facility] Estimated GFR >60 >=[address] [facility] [facility] LABORATORY Comment: The reported eGFR should be multiplied b y 1.2 for patients. The MDRD is not an appropriate measure o f renal function for patients with body mass extremes or in patients with acute kidney failure. http://UPlanMe/DHnkdep http://UPlanMe/DHMCnkf Specimen Anatomical Collection Method Collection Time Receive d Time (Source) Location / / Volume Laterality Blood specimen 08/13/2017 5:33 AM 018 6:04 (specimen) EST AM EST Resulting Agency Comment Spec In Lab Yonathan Smith MD CHEMISTRY ORDERABLES Performing Organization Address City/[facility]/ZIP Code Phon e Number [address] POCT Glucose (08/13/2017 4:29 AM EST) athologist Signature POC Glucose 111 65 - [address] [facility]/dL [facility] LABORATORY Comment: Supplemental ranges: <140 mg/dL before meals <180 mg/dL all other times of the day Specimen Anatomical Collection Method Collection Time Receive d Time (Source) Location / / Volume Laterality Blood specimen 08/13/2017 4:29 AM 018 4:29 (specimen) EST AM EST Yonathan Smith MD POINT OF CARE TEST ORDERABLE S Performing Organization Address City/[facility]/ZIP Code Phon e Number [address] POCT Glucose (08/12/2017 11:28 PM EST) athologist Signature POC Glucose 164 65 - 199 [facility] mg/dL [facility]OR[facility]ORY Comment: Supplemental ranges: <140 mg/dL before meals <180 mg/dL all other times of the day Specimen Anatomical Collection Method Collection Time Receive d Time (Source) Location / / Volume Laterality Blood specimen 08/12/2017 11:28 8 (specimen) PM EST 11:28 PM EST Yonathan Smith MD POINT OF CARE TEST ORDERABLE S Performing Organization Address City/[facility]/ZIP [place] [address] (ABNORMAL) POCT Glucose (08/12/2017 7:40 PM EST) athologist Signature POC Glucose 209 (H) 65 - 199 [facility] mg/dL [facility]OR[facility]ORY Comment: Supplemental ranges: <140 mg/dL before meals <180 mg/dL all other times of the day Specimen Anatomical Collection Method Collection Time Receive d Time (Source) Location / / Volume Laterality Blood specimen 08/12/2017 7:40 PM 018 7:40 (specimen) EST PM EST Yonathan Smith MD POINT OF CARE TEST ORDERABLE S Performing Organization Address City/State/ZIP Code Phon e Number [address] POCT Glucose (08/12/2017 4:24 PM EST) athologist Signature POC Glucose 161 65 - 199 [facility] [facility] mg/dL [facility] Comment: Supplemental ranges: <140 mg/dL before meals <180 mg/dL all other times of the day Specimen Anatomical Collection Method Collection Time Receive d Time (Source) Location / / Volume Laterality Blood specimen 08/12/2017 4:24 PM 018 4:24 (specimen) EST PM EST Yonathan Smith MD POINT OF CARE TEST ORDERABLE S Performing Organization Address City/State/[place] [address] POCT Glucose (08/12/2017 12:00 PM EST) athologist Signature POC Glucose 167 65 - 199 [place] mg/dL [facility] Comment: Supplemental ranges: <140 mg/dL before meals <180 mg/dL all other times of the day Specimen Anatomical Collection Method Collection Time Receive d Time (Source) Location / / Volume Laterality Blood specimen 08/12/2017 12:00 8 (specimen) PM EST 12:00 PM EST Yonathan Smith MD POINT OF CARE TEST ORDERABLE S Performing Organization Address City/State/[place] [address] POCT Glucose (08/12/2017 7:25 AM EST) P athologist Signature POC Glucose 152 65 - 199 [facility] mg/dL [facility] Comment: Supplemental ranges: <140 mg/dL before meals <180 mg/dL all other times of the day Specimen Anatomical Collection Method Collection Time Receive d Time (Source) Location / / Volume Laterality Blood specimen 08/12/2017 7:25 AM 018 7:25 (specimen) EST AM EST Yonathan Smith MD POINT OF CARE TEST ORDERABLE S Performing Organization Address City/State/ZIP Code Phon e Number [place] [id number] (ABNORMAL) Differential, Automated (08/12/2017 6:29 AM EST) Patholo gist Method Time Signature Neutrophils % 78.7 % [facility] Neutr Abs (ANC) 7.94 (H) 1.70 - [facility] 6.10 [facility] x10(3)/[facility] LABORATORY Lymphocytes % 8.8 % [facility] Lymphocytes Abs 0.9 0.9 - 3.2 [facility] x10(3)/[facility] LABORATORY Monocytes % 7.8 % [facility] Monocyte Abs 0.8 0.3 - 0.9 [facility] x10(3)/[facility] LABORATORY Eosinophils % 3.9 % [facility] Eosinophils Abs 0.4 0.0 - 0.4 [facility] x10(3)/[facility] LABORATORY Basophils % 0.3 % [facility] Basophils Abs 0.0 0.0 - 0.1 [facility] x10(3)/[facility] LABORATORY Immature Gran % 0.50 % ST. [...] Gran Abs 0.05 (H) 0.00 - 0.04 x10(3)/[facility] LABORATORY Specimen Anatomical Collection Method Collection Time Receive d Time (Source) Location / / Volume Laterality Blood specimen 08/12/2017 6:29 AM 018 6:38 (specimen) EST AM EST Resulting Agency Comment Spec In Lab Yonathan Smith MD HEMATOLOGY ORDERABLES Performing Organization Address City/State/[place] [address] (ABNORMAL) Hemogram (08/12/2017 6:29 AM EST) Analysis Performed At Patho logist Time Signature WBC 10.1 (H) 4.0 - 9.5 [facility] x10(3)/[facility] LABORATORY RBC 3.02 (L) 4.58 - [facility] 5.54 [facility] x10(6)/[facility] LABORATORY Hemoglobin 8.7 (L) 13.7 - [facility] 16.5 gm/dL [facility] Hematocrit 28.1 (L) 40.5 - [facility] 48.5 % [facility] MCV 93.0 82.[address] [facility] 93.1 [facility] LABORATORY MCH 28.8 27.5 - [facility] 32.1 pg [facility] MCHC 31.0 (L) 32.0 - [facility] 35.7 gm/dL [facility] Platelets 223 145 - 357 [facility] x10(3)/[facility] LABORATORY RDWSD 56.1 (H) 36.0 - [facility] 45.0 [facility] LABORATORY RDWCV 16.4 (H) 11.4 - [facility] 13.8 % [facility] MPV 9.0 7.6 - 12.9 [facility] LABORATORY nRBC % Auto 0.0 % [facility] nRBC Abs Auto 0.000 0.000 - [facility] 0.000 [facility] x10(3)/[facility] LABORATORY Specimen Anatomical Collection Method Collection Time Receive d Time (Source) Location / / Volume Laterality Blood specimen 08/12/2017 6:29 AM 018 6:38 (specimen) EST AM EST Resulting Agency Comment Spec In Lab Yonathan Smith MD HEMATOLOGY ORDERABLES Performing Organization Address City/[facility]/ZIP [place] [address] (ABNORMAL) Prothrombin Time (08/12/2017 [...] Address City/State/Z[place] [address] (ABNORMAL) Basic Metabolic Panel (non-fasting) (08/12/2017 6:29 AM EST) athologist Signature Glucose Lvl 151 65 - 199 [facility] mg/dL [facility] Comment: [...] [facility] Estimated GFR >60 >=60 [facility] Comment: The reported eGFR should be multiplied b y 1.2 for patients. The MDRD is not an appropriate measure o f renal function for patients with body mass extremes or in patients with acute kidney failure. http://UPlanMe/DHnkdep http://UPlanMe/DHMCnkf Specimen Anatomical Collection Method Collection Time Receive d Time (Source) Location / / Volume Laterality Blood specimen 08/12/2017 6:29 AM 018 6:38 (specimen) EST AM EST Resulting Agency Comment Spec In Lab Yonathan Smith MD CHEMISTRY ORDERABLES Performing Organization Address City/[facility]/ZIP [place] [address] POCT Glucose (08/12/2017 4:08 AM EST) athologist Signature POC Glucose 181 65 - [address] [facility] Comment: Supplemental ranges: <140 mg/dL before meals <180 mg/dL all other times of the day Specimen Anatomical Collection Method Collection Time Receive d Time (Source) Location / / Volume Laterality Blood specimen 08/12/2017 4:08 AM 018 4:08 (specimen) EST AM EST Yonathan Smith MD POINT OF CARE TEST ORDERABLE S Performing Organization Address City/[facility]/ZIP [place] [address] (ABNORMAL) POCT Glucose (08/12/2017 12:17 AM EST) athologist Signature POC Glucose 221 (H) 65 - [address] [facility] Comment: Supplemental ranges: <140 mg/dL before meals <180 mg/dL all other times of the day Specimen Anatomical Collection Method Collection Time Receive d Time (Source) Location / / Volume Laterality Blood specimen 08/12/2017 12:17 8 (specimen) AM EST 12:17 AM EST Yonathan Smith MD POINT OF CARE TEST ORDERABLE S Performing Organization Address City/[facility]/ZIP [place] [address] (ABNORMAL) POCT Glucose (08/11/2017 8:52 PM EST) athologist Signature POC Glucose 221 (H) 65 - 199 [place] mg/dL [facility] Comment: Supplemental ranges: <140 mg/dL before meals <180 mg/dL all other times of the day Specimen Anatomical Collection Method Collection Time Receive d Time (Source) Location / / Volume Laterality Blood specimen 08/11/2017 8:52 PM 018 8:52 (specimen) EST PM EST Yonathan Smith MD POINT OF CARE TEST ORDERABLE S Performing Organization Address City/[facility]/ZIP [place] [address] POCT Glucose (08/11/2017 5:59 PM EST) athologist Signature POC Glucose 169 65 - 199 [facility] mg/dL [facility] Comment: Supplemental ranges: <140 mg/dL before meals <180 mg/dL all other times of the day Specimen Anatomical Collection Method Collection Time Receive d Time (Source) Location / / Volume Laterality Blood specimen 08/11/2017 5:59 PM 018 5:59 (specimen) EST PM EST Yonathan Smith MD POINT OF CARE TEST ORDERABLE S Performing Organization Address City/State/ZIP [place] [address] (ABNORMAL) POCT Glucose (08/11/2017 4:08 PM EST) athologist Signature POC Glucose 240 (H) 65 - 199 [facility] mg/dL [facility] Comment: Supplemental ranges: <140 mg/dL before meals <180 mg/dL all other times of the day Specimen Anatomical Collection Method Collection Time Receive d Time (Source) Location / / Volume Laterality Blood specimen 08/11/2017 4:08 PM 018 4:08 (specimen) EST PM EST Yonathan Smith MD POINT OF CARE TEST ORDERABLE S Performing Organization Address City/[facility]/ZIP Code Phon e Number [address] POCT Glucose (08/11/2017 12:04 PM EST) athologist Signature POC Glucose 182 65 - 199 [facility] Comment: Supplemental ranges: <140 mg/dL before meals <180 mg/dL all other times of the day Specimen Anatomical Collection Method Collection Time Receive d Time (Source) Location / / Volume Laterality Blood specimen 08/11/2017 12:04 8 (specimen) PM EST 12:04 PM EST Yonathan Smith MD POINT OF CARE TEST ORDERABLE S Performing Organization Address City/[facility]/ZIP Code Phon e Number [address] POCT Glucose (08/11/2017 7:31 AM EST) athologist Signature POC Glucose 156 65 - 199 [facility] Comment: Supplemental ranges: <140 mg/dL before meals <180 mg/dL all other times of the day Specimen Anatomical Collection Method Collection Time Receive d Time (Source) Location / / Volume Laterality Blood specimen 08/11/2017 7:31 AM 018 7:31 (specimen) EST AM EST Yonathan Smith MD POINT OF CARE TEST ORDERABLE S Performing Organization Address City/[facility]/ZIP Code Phon e Number [address] (ABNORMAL) Differential, Automated (08/11/2017 6:16 AM EST) [facility] Time Signature Neutrophils % 83.7 % [facility] Neutr Abs (ANC) 10.76 (H) 1.70 - [facility] 6.10 [facility] x10(3)/[facility] LABORATORY Lymphocytes % 6.0 % [facility] Lymphocytes Abs 0.8 (L) 0.9 - 3.2 [facility] x10(3)/[facility] LABORATORY Monocytes % 7.5 % [facility] Monocyte Abs 1.0 (H) 0.3 - 0.9 [facility] x10(3)/[facility] LABORATORY Eosinophils % 2.0 % [facility] Eosinophils Abs 0.3 0.0 - 0.4 [facility] x10(3)/[facility] LABORATORY Basophils % 0.3 % [facility] Basophils Abs 0.0 0.0 - 0.1 [facility] x10(3)/[facility] LABORATORY Immature Gran % 0.50 % ST. [...] Address City/State/[place] [address] (ABNORMAL) Hemogram (08/11/2017 6:16 AM EST) Analysis Performed At Patho logist Time Signature WBC 12.9 (H) 4.0 - 9.5 [facility] x10(3)/[facility] LABORATORY RBC 3.28 (L) 4.58 - [facility] 5.54 [facility] x10(6)/[facility] LABORATORY Hemoglobin 9.5 (L) 13.7 - [facility] 16.5 gm/dL [facility] Hematocrit 29.8 (L) 40.5 - [place] 48.5 % [facility] MCV 90.9 82.9 - [facility] 93.1 [facility] LABORATORY MCH 29.0 27.5 - [place] 32.1 pg [facility] MCHC 31.9 (L) 32.0 - [place] 35.7 gm/dL [facility] Platelets 236 145 - 357 [facility] x10(3)/[facility] LABORATORY RDWSD 53.5 (H) 36.0 - [place] [facility] 45.0 [facility] LABORATORY RDWCV 16.3 (H) 11.4 - [facility] 13.8 % [facility] MPV 8.8 7.6 - 12.9 [facility] LABORATORY nRBC % Auto 0.0 % [facility] nRBC Abs Auto 0.000 0.000 - [facility] 0.000 [facility] x10(3)/[facility] LABORATORY Specimen Anatomical Collection Method Collection Time Receive d Time (Source) Location / / Volume Laterality Blood specimen 08/11/2017 6:16 AM 018 6:24 (specimen) EST AM EST Resulting Agency Comment Spec In Lab Yonathan Smith MD HEMATOLOGY ORDERABLES Performing Organization Address City/State/[place] [address] (ABNORMAL) Prothrombin Time (08/11/2017 [...] Address City/State/[place] [address] Basic Metabolic Panel (non-fasting) (08/11/2017 6:16 AM EST) P athologist Signature Glucose Lvl 139 65 - 199 [facility] mg/dL [facility] Comment: [...] [facility] Estimated GFR >60 >=60 [facility] Comment: The reported eGFR should be multiplied b y 1.2 for patients. The MDRD is not an appropriate measure o f renal function for patients with body mass extremes or in patients with acute kidney failure. http://159.com.Accelergy/DHnkdep http://UPlanMe/DHMCnkf Specimen Anatomical Collection Method Collection Time Receive d Time (Source) Location / / Volume Laterality Blood specimen 08/11/2017 6:16 AM 018 6:24 (specimen) EST AM EST Resulting Agency Comment Spec In Lab Yonathan Smith MD CHEMISTRY ORDERABLES Performing Organization Address City/State/ZIP Code Phon e Number [address] POCT Glucose (08/11/2017 4:07 AM EST) athologist Signature POC Glucose 162 65 - 199 [place] [facility] mg/dL [facility] Comment: Supplemental ranges: <140 mg/dL before meals <180 mg/dL all other times of the day Specimen Anatomical Collection Method Collection Time Receive d Time (Source) Location / / Volume Laterality Blood specimen 08/11/2017 4:07 AM 018 4:07 (specimen) EST AM EST Yonathan Smith MD POINT OF CARE TEST ORDERABLE S Performing Organization Address City/[facility]/ZIP Code Phon e Number [address] POCT Glucose (08/10/2017 11:59 PM EST) athologist Signature POC Glucose 166 65 - 199 [place] [facility] mg/dL [facility] Comment: Supplemental ranges: <140 mg/dL before meals <180 mg/dL all other times of the day Specimen Anatomical Collection Method Collection Time Receive d Time (Source) Location / / Volume Laterality Blood specimen 08/10/2017 11:59 8 (specimen) PM EST 11:59 PM EST Yonathan Smith MD POINT OF CARE TEST ORDERABLE S Performing Organization Address City/State/ZIP Code Phon e Number [address] POCT Glucose (08/10/2017 8:12 PM EST) athologist Signature POC Glucose 156 65 - 199 [place] [facility] mg/dL [facility] Comment: Supplemental ranges: <140 mg/dL before meals <180 mg/dL all other times of the day Specimen Anatomical Collection Method Collection Time Receive d Time (Source) Location / / Volume Laterality Blood specimen 08/10/2017 8:12 PM 018 8:12 (specimen) EST PM EST Yonathan Smith MD POINT OF CARE TEST ORDERABLE S Performing Organization Address City/State/ZIP Code Phon e Number [place] [phone] [facility]OSPITAL LAB[address]ORY Drive (ABNORMAL) POCT Glucose (08/10/2017 4:42 PM EST) P athologist Signature POC Glucose 211 (H) 65 - [address] [facility] Comment: Supplemental ranges: <140 mg/dL before meals <180 mg/dL all other times of the day Specimen Anatomical Collection Method Collection Time Receive d Time (Source) Location / / Volume Laterality Blood specimen 08/10/2017 4:42 PM 018 4:42 (specimen) EST PM EST Yonathan Smith MD POINT OF CARE TEST ORDERABLE S Performing Organization Address City/State/ZIP Code Phon e Number [address] (ABNORMAL) Differential, Automated (08/10/2017 2:30 PM EST) Patholo gist Method Time Signature Neutrophils % 87.6 % [facility] Neutr Abs (ANC) 9.90 (H) 1.70 - [facility] 6.10 [facility] x10(3)/[facility] LABORATORY Lymphocytes % 4.3 % [facility] Lymphocytes Abs 0.5 (L) 0.9 - 3.2 [facility] x10(3)/[facility] LABORATORY Monocytes % 6.0 % [facility] Monocyte Abs 0.7 0.3 - 0.9 [facility] x10(3)/[facility] LABORATORY Eosinophils % 1.1 % [facility] Eosinophils Abs 0.1 0.0 - 0.4 [facility] x10(3)/[facility] LABORATORY Basophils % 0.4 % [facility] Basophils Abs 0.0 0.0 - 0.1 [facility] x10(3)/[facility] LABORATORY Immature Gran % 0.60 % ST. [...] Address City/State/[place] [address] (ABNORMAL) Hemogram (08/10/2017 2:30 PM EST) Analysis Performed At Patho logist Time Signature WBC 11.3 (H) 4.0 - 9.5 [facility] x10(3)/[facility] LABORATORY RBC 3.13 (L) 4.58 - [facility] 5.54 [facility] x10(6)/[facility] LABORATORY Hemoglobin 8.9 (L) 13.7 - [facility] gm/dL [facility] Hematocrit 28.4 (L) 40.5 - [facility] 48.5 % [facility] MCV 90.7 82.9 - [facility] 93.1 [facility] LABORATORY MCH 28.4 27.5 - [facility] 32.1 pg [facility] MCHC 31.3 (L) 32.0 - [facility] 35.7 gm/dL [facility] Platelets 213 145 - 357 [facility] x10(3)/[facility] LABORATORY RDWSD 53.7 (H) 36.0 - [facility] 45.0 [facility] LABORATORY RDWCV 16.4 (H) 11.4 - [facility] 13.8 % [facility] MPV 8.9 7.6 - 12.9 [facility] LABORATORY nRBC % Auto 0.0 % [facility] nRBC Abs Auto 0.000 0.000 - [facility] Dropcam 0.000 [facility] x10(3)/[facility] LABORATORY Specimen Anatomical Collection Method Collection Time Receive d Time (Source) Location / / Volume Laterality Blood specimen 08/10/2017 2:30 PM 018 2:48 (specimen) EST PM EST Resulting Agency Comment Spec In Lab Yonathan Smith MD HEMATOLOGY ORDERABLES Performing Organization Address City/[facility]/ZIP Code Phon e Number [address] (ABNORMAL) POCT Glucose (08/10/2017 1:50 PM EST) athologist Signature POC Glucose 243 (H) 65 - [address] [facility] Comment: Supplemental ranges: <140 mg/dL before meals <180 mg/dL all other times of the day Specimen Anatomical Collection Method Collection Time Receive d Time (Source) Location / / Volume Laterality Blood specimen 08/10/2017 1:50 PM 018 1:50 (specimen) EST PM EST Yonathan Smith MD POINT OF CARE TEST ORDERABLE S Performing Organization Address City/[facility]/ZIP Code Phon e Number [address] POCT Glucose (08/10/2017 11:21 AM EST) athologist Signature POC Glucose 156 65 - [address] [facility]dL [facility] Comment: Supplemental ranges: <140 mg/dL before meals <180 mg/dL all other times of the day Specimen Anatomical Collection Method Collection Time Receive d Time (Source) Location / / Volume Laterality Blood specimen 08/10/2017 11:21 8 (specimen) AM EST 11:21 AM EST Yonathan Smith MD POINT OF CARE TEST ORDERABLE S Performing Organization Address City/[facility]/ZIP Code Phon e Number [address] (ABNORMAL) Differential, Automated (08/10/2017 10:28 AM EST) [facility] Time Signature Neutrophils % 85.3 % [facility] Neutr Abs (ANC) 9.43 (H) 1.70 - [facility] 6.10 [facility] x10(3)/[facility] L LABORATORY Lymphocytes % 5.5 % [facility] Lymphocytes Abs 0.6 (L) 0.9 - 3.2 [facility] x10(3)/[facility] LABORATORY Monocytes % 5.9 % [facility] Monocyte Abs 0.6 0.3 - 0.9 [facility] x10(3)/[facility] LABORATORY Eosinophils % 2.1 % [facility] Eosinophils Abs 0.2 0.0 - 0.4 [facility] x10(3)/[facility] LABORATORY Basophils % 0.4 % [facility] Basophils Abs 0.0 0.0 - 0.1 [facility] x10(3)/[facility] LABORATORY Immature Gran % 0.80 % ST. [...] Gran Abs 0.09 (H) 0.00 - 0.04 x10(3)/[facility] LABORATORY Specimen Anatomical Collection Method Collection Time Receive d Time (Source) Location / / Volume Laterality Blood specimen 08/10/2017 10:28 8 (specimen) AM EST 10:35 AM EST Resulting Agency Comment Spec In Lab Yonathan Smith MD HEMATOLOGY ORDERABLES Performing Organization Address City/State/[place] [address] (ABNORMAL) Hemogram (08/10/2017 10:28 AM EST) Analysis Performed At Patho logist Time Signature WBC 11.0 (H) 4.0 - 9.5 [facility] x10(3)/[facility] LABORATORY RBC 3.02 (L) 4.58 - [facility] 5.54 [facility] x10(6)/[facility] LABORATORY Hemoglobin 8.8 (L) 13.7 - [facility] 16.5 gm/dL [facility] Hematocrit 28.1 (L) 40.5 - [facility] 48.5 % [facility] MCV 93.0 82.9 - [facility] 93.1 [facility] LABORATORY MCH 29.1 27.5 - [facility] 32.1 pg [facility] MCHC 31.3 (L) 32.0 - [facility] 35.7 gm/dL [facility] Platelets 207 145 - 357 [facility] x10(3)/[facility] LABORATORY RDWSD 55.3 (H) 36.0 - [facility] 45.0 [facility] LABORATORY RDWCV 16.4 (H) 11.4 - [facility] 13.8 % [facility] MPV 9.0 7.6 - 12.9 [facility] LABORATORY nRBC % Auto 0.0 % [facility] nRBC Abs Auto 0.000 0.000 - [place] DAV[facility] 0.000 [facility] x10(3)/[facility] LABORATORY Specimen Anatomical Collection Method Collection Time Receive d Time (Source) Location / / Volume Laterality Blood specimen 08/10/2017 10:28 8 (specimen) AM EST 10:35 AM EST Resulting Agency Comment Spec In Lab Yonathan Smith MD HEMATOLOGY ORDERABLES Performing Organization Address City/State/[place] [address] VS Angiogram/intervention (vascular) (08/10/2017 [...] 2.5x80 5. Completion RLE angiogram 6. L FUR STRETCHER angiogram 7. 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 L FUR STRETCHER access in the distal L FUR STRETCHER. - Closure device: Mynx Technical Procedure: ?The [...] for a 45cm 5F Destination. V18 and Toney a nd QuickCross catheters were used to [...] bifurcation. Access appeared in the distal R FUR STRETCHER. Closure and sheath removal was performed with [...] 2.5x80 5. Completion RLE angiogram 6. L FUR STRETCHER angiogram 7. 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 L FUR STRETCHER access in the distal L FUR STRETCHER. - Closure device: Mynx Technical Procedure: The [...] for a 45cm 5F Destination. V18 and Toney a nd QuickCross catheters were used to [...] bifurcation. Access appeared in the distal R FUR STRETCHER. Closure and sheath removal was performed with [...] (ANC) 9.01 (H) 1.70 - [facility] 6.10 [facility] x10(3)/[facility] LABORATORY Lymphocytes % 8.8 % [facility] LABORATORY Lymphocytes Abs 1.0 0.9 - 3.2 [facility] x10(3)/[facility] LABORATORY Monocytes % 8.3 % [facility] LABORATORY Monocyte Abs 0.9 0.3 - 0.9 [facility] x10(3)/[facility] LABORATORY Eosinophils % 2.0 % [facility] LABORATORY Eosinophils Abs 0.2 0.0 - 0.4 [facility] x10(3)/[facility] LABORATORY Basophils % 0.4 % [facility] LABORATORY Basophils Abs 0.0 0.0 - 0.1 [facility] x10(3)/[facility] LABORATORY Immature Gran % 0.40 % ST. [...] Gran Abs 0.05 (H) 0.00 - 0.04 x10(3)/[facility] LABORATORY Specimen Anatomical Collection Method Collection Time Receive d Time (Source) Location / / Volume Laterality Blood specimen 08/10/2017 5:50 AM 018 5:59 (specimen) EST AM EST Resulting Agency Comment Spec In Lab Yonathan Smith MD HEMATOLOGY ORDERABLES Performing Organization Address City/State/ZIP [place] [address] (ABNORMAL) Hemogram (08/10/2017 5:50 AM EST) Analysis Performed At Patho logist Time Signature WBC 11.3 (H) 4.0 - 9.5 [facility] x10(3)/[facility] LABORATORY RBC 3.15 (L) 4.58 - [place] [facility] 5.54 [facility] x10(6)/[facility] LABORATORY Hemoglobin 8.9 (L) 13.7 - [facility] 16.[facility] gm/dL [facility] LABORATORY Hematocrit 29.0 (L) 40.5 - [facility] RYAN 48.5 % [facility] LABORATORY MCV 92.1 82.9 - [facility] RYAN 93.1 [facility] LABORATORY MCH 28.3 27.5 - [facility] RYAN 32.1 pg [facility] LABORATORY MCHC 30.7 (L) 32.0 - [facility] RYAN 35.7 gm/dL [facility] LABORATORY Platelets 231 145 - 357 [facility] x[facility](3[facility] RDWSD 53.9 (H) 36.0 - [facility] RYAN 45.0 [facility] LABORATORY RDWCV 16.2 (H) 11.4 - [facility] RYAN 13.8 % [facility] LABORATORY MPV 8.7 7.6 - 12.9 [facility] LABORATORY nRBC % Auto 0.0 % [facility] LABORATORY nRBC Abs Auto 0.000 0.000 - [facility] 0.000 [facility] x10(3)/[facility] LABORATORY Specimen Anatomical Collection Method Collection Time Receive d Time (Source) Location / / Volume Laterality Blood specimen 08/10/2017 5:50 AM 018 5:59 (specimen) EST AM EST Resulting Agency Comment Spec In Lab Yonathan Smith MD HEMATOLOGY ORDERABLES Performing Organization Address City/State/[place] [address] (ABNORMAL) Basic Metabolic Panel (non-fasting) (08/10/2017 5:50 AM EST) P athologist Signature Glucose Lvl 135 65 - 199 [facility] mg/dL [facility] LABORATORY Comment: [...] [facility] LAB[facility] Estimated GFR >60 >=60 [facility] LABORATORY Comment: The reported eGFR should be multiplied b y 1.2 for patients. The MDRD is not an appropriate measure o f renal function for patients with body mass extremes or in patients with acute kidney failure. http://159.com.Accelergy/DHnkdep http://159.com.Accelergy/DHMCnkf Specimen Anatomical Collection Method Collection Time Receive d Time (Source) Location / / Volume Laterality Blood specimen 08/10/2017 5:50 AM 018 5:59 (specimen) EST AM EST Resulting Agency Comment Spec In Lab Yonathan Smith MD CHEMISTRY ORDERABLES Performing Organization Address [facility] [place] [address] (ABNORMAL) Prothrombin Time (08/10/2017 [...] MD HEMATOLOGY ORDERABLES Performing Organization Address City/[facility] [place] [address] (ABNORMAL) POCT Glucose (08/10/2017 4:01 AM EST) athologist Signature POC Glucose 206 (H) 65 - 199 [facility] mg/dL [facility] LABORATORY Comment: Supplemental ranges: <140 mg/dL before meals <180 mg/dL all other times of the day Specimen Anatomical Collection Method Collection Time Receive d Time (Source) Location / / Volume Laterality Blood specimen 08/10/2017 4:01 AM 018 4:01 (specimen) EST AM EST Yonathan Smith MD POINT OF CARE TEST ORDERABLE S Performing Organization Address City/State/ZIP Code Phon e Number [address] POCT Glucose (08/10/2017 2:01 AM EST) athologist Signature POC Glucose 188 65 - 199 [facility] mg/dL [facility] LABORATORY Comment: Supplemental ranges: <140 mg/dL before meals <180 mg/dL all other times of the day Specimen Anatomical Collection Method Collection Time Receive d Time (Source) Location / / Volume Laterality Blood specimen 08/10/2017 2:01 AM 018 2:01 (specimen) EST AM EST Yonathan Smith MD POINT OF CARE TEST ORDERABLE S Performing Organization Address City/[facility]/ZIP [place] [address] (ABNORMAL) POCT Glucose (08/09/2017 11:42 PM EST) athologist Signature POC Glucose 283 (H) 65 - 199 [facility] mg/dL [facility] LABORATORY Comment: Supplemental ranges: <140 mg/dL before meals <180 mg/dL all other times of the day Specimen Anatomical Collection Method Collection Time Receive d Time (Source) Location / / Volume Laterality Blood specimen 08/09/2017 11:42 8 (specimen) PM EST 11:42 PM EST Yonathan Smith MD POINT OF CARE TEST ORDERABLE S Performing Organization Address City/State/ZIP [place] [address] POCT Glucose (08/09/2017 8:55 PM EST) athologist Signature POC Glucose 182 65 - 199 [place] [facility] mg/dL [facility] LABORATORY Comment: Supplemental ranges: <140 mg/dL before meals <180 mg/dL all other times of the day Specimen Anatomical Collection Method Collection Time Receive d Time (Source) Location / / Volume Laterality Blood specimen 08/09/2017 8:55 PM 018 8:55 (specimen) EST PM EST Yonathan Smith MD POINT OF CARE TEST ORDERABLE S Performing Organization Address City/[facility]/[place]IP [place] [address] (ABNORMAL) APTT (08/09/2017 6:42 [...] Address City/[facility]/Z[place] [address] POCT Glucose (08/09/2017 4:41 PM EST) athologist Signature POC Glucose 195 65 - 199 [facility] mg/dL [facility] LABORATORY Comment: Supplemental ranges: <140 mg/dL before meals <180 mg/dL all other times of the day Specimen Anatomical Collection Method Collection Time Receive d Time (Source) Location / / Volume Laterality Blood specimen 08/09/2017 4:41 PM 018 4:41 (specimen) EST PM EST Yonathan Smith MD POINT OF CARE TEST ORDERABLE S Performing Organization Address City/[facility]/ZIP [place] [address] POCT Glucose (08/09/2017 12:29 PM EST) athologist Signature POC Glucose 140 65 - 199 [facility] mg/dL [facility] LABORATORY Comment: Supplemental ranges: <140 mg/dL before meals <180 mg/dL all other times of the day Specimen Anatomical Collection Method Collection Time Receive d Time (Source) Location / / Volume Laterality Blood specimen 08/09/2017 12:29 8 (specimen) PM EST 12:29 PM EST Yonathan Smith MD POINT OF CARE TEST ORDERABLE S Performing Organization Address [facility]/ZIP Code Phon e Number [address] POCT Glucose (08/09/2017 9:59 AM EST) P athologist Signature POC Glucose 135 65 - 199 [facility] mg/dL [facility] LABORATORY Comment: Supplemental ranges: <140 mg/dL before meals <180 mg/dL all other times of the day Specimen Anatomical Collection Method Collection Time Receive d Time (Source) Location / / Volume Laterality Blood specimen 08/09/2017 9:59 AM 018 9:59 (specimen) EST AM EST Yonathan Smith MD POINT OF CARE TEST ORDERABLE S Performing Organization Address [facility]/ZIP Code Phon e Number [address] Specimen to Pathology (08/09/2017 [...] Address City/[facility]/Z[place] [address] Surgical Pathology Report (08/09/2017 8:40 AM EST) Component Value Ref Test Analysis Performed At Patholo gist Range Method Time Signature Surgical [id number] ? Location: [facility]; [facility]; [facility] Report The signing pathologist has (i) [...] Henrique Flower Verified: ??08/13/2017 ?Pathologist Performed at: ??-[facility] Dept. of Pathology, [place], [place] CLINICAL INFORMATION Specimen Submitted: A - [...] Address City/State/[place] [address] Anaerobic Culture (08/09/2017 8:30 AM EST) [facility] [place] [employer] Method Time Signature Anaerobic No anaerobic [facility] Culture organisms [facility] LABORATORY Specimen Anatomical Collection Method [...] Address City/[facility]/ZIP [place] [address] (ABNORMAL) Abscess/Wound Aspirate Culture (08/09/2017 8:30 AM EST) [facility] Method Time Signature Abscess/Wound Moderate mixed [facility] Aspirate bacterial [place] Culture morphotypes [facility] normal LABORATORY cutaneous leroy (A) Gram Stain Rare White Blood Cells [place] Few Gram Positive Cocci in pairs [place] () [facility] LABORATORY Organism Gram Positive [place] Cocci in pairs [place] () [facility] LABORATORY Specimen Anatomical Collection [...] Address City/[facility]/ZIP Code Phon e Number [place] [id number]OS[address] POCT Glucose (08/09/2017 4:28 AM EST) P athologist Signature POC Glucose 128 65 - [address] [facility] mg/dL [facility] LABORATORY Comment: Supplemental ranges: <140 mg/dL before meals <180 mg/dL all other times of the day Specimen Anatomical Collection Method Collection Time Receive d Time (Source) Location / / Volume Laterality Blood specimen 08/09/2017 4:28 AM 018 4:28 (specimen) EST AM EST Yonathan Smith MD POINT OF CARE TEST ORDERABLE S Performing Organization Address City/State/Z[place] [address] ABORH Recheck Status (08/09/2017 1:10 AM EST) [facility] Method Time Signature ABORH Type Completed [facility] LABORATORY Specimen Anatomical Collection Method Collection Time Receive d Time (Source) Location / / Volume Laterality Blood specimen 08/09/2017 1:10 AM 018 1:35 (specimen) EST AM EST Resulting Agency Comment Spec In Lab Yonathan Smith MD BLOOD BANK ORDERABLES Performing Organization Address City/[facility]/ZIP [place] [address] Antibody screen (08/09/2017 1:10 AM EST) [facility] Method Time Signature Ab Screen Negative [facility] LABORATORY Expires at 08/12/2017 [facility] [id number] on: [facility] LABORATORY Specimen Anatomical Collection Method Collection Time Receive d Time (Source) Location / / Volume Laterality Blood specimen 08/09/2017 1:10 AM 018 1:35 (specimen) EST AM EST Resulting Agency Comment Spec In Lab Yonathan Smith MD BLOOD BANK ORDERABLES Performing Organization Address City/[facility]/ZIP [place] [address] ABO/Rh Typing (08/09/2017 1:10 AM EST) P athologist Signature ABORh Type O Pos [facility] LABORATORY Specimen Anatomical Collection Method Collection Time Receive d Time (Source) Location / / Volume Laterality Blood specimen 08/09/2017 1:10 AM 018 1:35 (specimen) EST AM EST Resulting Agency Comment Spec In Lab Yonathan Smith MD BLOOD BANK ORDERABLES Performing Organization Address City/[facility]/Z[place] [address] (ABNORMAL) APTT (08/09/2017 1:10 [...] Address City/State/[place] [address] (ABNORMAL) Differential, Automated (08/09/2017 1:10 AM EST) [facility] gist Method Time Signature Neutrophils % 76.2 % [facility] LABORATORY Neutr Abs (ANC) 8.59 (H) 1.70 - [facility] 6.10 [facility] x10(3)/[facility] LABORATORY Lymphocytes % 11.0 % [facility] LABORATORY Lymphocytes Abs 1.2 0.9 - 3.2 [facility] x10(3)/[facility] LABORATORY Monocytes % 8.4 % [facility] LABORATORY Monocyte Abs 1.0 (H) 0.3 - 0.9 [facility] x10(3)/[facility] LABORATORY Eosinophils % 3.5 % [facility] LABORATORY Eosinophils Abs 0.4 0.0 - 0.4 [facility] x10(3)/[facility] LABORATORY Basophils % 0.5 % [facility] LABORATORY Basophils Abs 0.1 0.0 - 0.1 [facility] x10(3)/[facility] LABORATORY Immature Gran % 0.40 % ST. [...] Gran Abs 0.05 (H) 0.00 - 0.04 x10(3)/[facility] LABORATORY Specimen Anatomical Collection Method Collection Time Receive d Time (Source) Location / / Volume Laterality Blood specimen 08/09/2017 1:10 AM 018 1:19 (specimen) EST AM EST Resulting Agency Comment Spec In Lab Yonathan Smith MD HEMATOLOGY ORDERABLES Performing Organization Address City/State/[place] [address] (ABNORMAL) Hemogram (08/09/2017 1:10 AM EST) Analysis Performed At Patho logist Time Signature WBC 11.3 (H) 4.0 - 9.5 [facility] x10(3)/[facility] LABORATORY RBC 3.47 (L) 4.58 - [facility] 5.54 [facility] x10(6)/[facility] LABORATORY Hemoglobin 10.0 (L) 13.7 - [facility] 16.5 gm/dL [facility] LABORATORY Hematocrit 31.9 (L) 40.5 - [facility] 48.5 % [facility] LABORATORY MCV 91.9 82.9 - [facility] 93.1 [facility] LABORATORY MCH 28.8 27.5 - [facility] RYAN 32.1 pg [facility] LABORATORY MCHC 31.3 (L) 32.0 - [facility] 35.7 gm/dL [facility] LABORATORY Platelets 234 145 - 357 [facility] x10(3)/[facility] LABORATORY RDWSD 54.0 (H) 36.0 - [facility] RYAN 45.0 [facility] LABORATORY RDWCV 16.2 (H) 11.4 - [facility] 13.8 % [facility] LABORATORY MPV 8.7 7.6 - 12.9 [facility] LABORATORY nRBC % Auto 0.0 % [facility] LABORATORY nRBC Abs Auto 0.000 0.000 - [place] [facility] 0.000 [facility] x10(3)/[facility] LABORATORY Specimen Anatomical Collection Method Collection Time Receive d Time (Source) Location / / Volume Laterality Blood specimen 08/09/2017 1:10 AM 018 1:19 (specimen) EST AM EST Resulting Agency Comment Spec In Lab Yonathan Smith MD HEMATOLOGY ORDERABLES Performing Organization Address [facility] [place] [address] (ABNORMAL) Prothrombin Time (08/09/2017 [...] Smith MD HEMATOLOGY ORDERABLES Performing Organization Address [facility] [place] [address] (ABNORMAL) Basic Metabolic Panel (non-fasting) (08/09/2017 1:10 AM EST) athologist Signature Glucose Lvl 108 65 - 199 [facility] mg/dL [facility] LABORATORY Comment: [...] HOSPITAL LABORATORY Estimated GFR 45 (L) >=60 [facility] LABORATORY Comment: The reported eGFR should be multiplied b y 1.2 for patients. The MDRD is not an appropriate measure o f renal function for patients with body mass extremes or in patients with acute kidney failure. http://UPlanMe/DHnkdep http://UPlanMe/DHMCnkf Specimen Anatomical Collection Method Collection Time Receive d Time (Source) Location / / Volume Laterality Blood specimen 08/09/2017 1:10 AM 018 1:19 (specimen) EST AM EST Resulting Agency Comment Spec In Lab Yonathan Smith MD CHEMISTRY ORDERABLES Performing Organization Address City/State/ZIP Code Phon e Number [address] POCT Glucose (08/09/2017 12:05 AM EST) athologist Signature POC Glucose 128 65 - 199 [facility] mg/dL [facility] LABORATORY Comment: Supplemental ranges: <140 mg/dL before meals <180 mg/dL all other times of the day Specimen Anatomical Collection Method Collection Time Receive d Time (Source) Location / / Volume Laterality Blood specimen 08/09/2017 12:05 8 (specimen) AM EST 12:05 AM EST Yonathan Smith MD POINT OF CARE TEST ORDERABLE S Performing Organization Address City/State/Z[place] [address] (ABNORMAL) POCT Glucose (08/08/2017 7:36 PM EST) athologist Signature POC Glucose 215 (H) 65 - 199 [facility] mg/dL [facility] LABORATORY Comment: Supplemental ranges: <140 mg/dL before meals <180 mg/dL all other times of the day Specimen Anatomical Collection Method Collection Time Receive d Time (Source) Location / / Volume Laterality Blood specimen 08/08/2017 7:36 PM 018 7:36 (specimen) EST PM EST Yonathan Smith MD POINT OF CARE TEST ORDERABLE S Performing Organization Address City/[facility]/ZIP [place] [address] (ABNORMAL) POCT Glucose (08/08/2017 6:23 PM EST) athologist Signature POC Glucose 216 (H) 65 - 199 [facility] mg/dL [facility] LABORATORY Comment: Supplemental ranges: <140 mg/dL before meals <180 mg/dL all other times of the day Specimen Anatomical Collection Method Collection Time Receive d Time (Source) Location / / Volume Laterality Blood specimen 08/08/2017 6:23 PM 018 6:23 (specimen) EST PM EST Yonathan Smith MD POINT OF CARE TEST ORDERABLE S Performing Organization Address City/[facility]/Z[place] [address] (ABNORMAL) APTT (08/08/2017 6:00 [...] Address City/[facility]/ZIP Code Phon e Number [facility] [place] [address] POCT Glucose (08/08/2017 4:42 PM EST) athologist Signature POC Glucose 78 65 - 199 [facility] mg/dL [facility] LABORATORY Comment: Supplemental ranges: <140 mg/dL before meals <180 mg/dL all other times of the day Specimen Anatomical Collection Method Collection Time Receive d Time (Source) Location / / Volume Laterality Blood specimen 08/08/2017 4:42 PM 018 4:42 (specimen) EST PM EST Yonathan Smith MD POINT OF CARE TEST ORDERABLE S Performing Organization Address City/State/ZIP [place] [address] (ABNORMAL) POCT Glucose (08/08/2017 4:01 PM EST) athologist Signature POC Glucose 58 (L) 65 - 199 [facility] mg/dL [facility] LABORATORY Comment: Supplemental ranges: <140 mg/dL before meals <180 mg/dL all other times of the day Specimen Anatomical Collection Method Collection Time Receive d Time (Source) Location / / Volume Laterality Blood specimen 08/08/2017 4:01 PM 018 4:01 (specimen) EST PM EST Yonathan Smith MD POINT OF CARE TEST ORDERABLE S Performing Organization Address City/State/ZIP [place] [address] POCT Glucose (08/08/2017 11:51 AM EST) athologist Signature POC Glucose 90 65 - 199 [facility] mg/dL [facility] LABORATORY Comment: Supplemental ranges: <140 mg/dL before meals <180 mg/dL all other times of the day Specimen Anatomical Collection Method Collection Time Receive d Time (Source) Location / / Volume Laterality Blood specimen 08/08/2017 11:51 8 (specimen) AM EST 11:51 AM EST Yonathan Smith MD POINT OF CARE TEST ORDERABLE S Performing Organization Address City/State/Z[place] [address] (ABNORMAL) APTT (08/08/2017 10:27 [...] Address City/[facility]/ZIP Code Phon e Number [address] POCT Glucose (08/08/2017 8:02 AM EST) athologist Signature POC Glucose 178 65 - 199 [facility] mg/dL [facility] LABORATORY Comment: Supplemental ranges: <140 mg/dL before meals <180 mg/dL all other times of the day Specimen Anatomical Collection Method Collection Time Receive d Time (Source) Location / / Volume Laterality Blood specimen 08/08/2017 8:02 AM 018 8:02 (specimen) EST AM EST Yonathan Smith MD POINT OF CARE TEST ORDERABLE S Performing Organization Address City/[facility]/ZIP [place] [address] (ABNORMAL) APTT (08/08/2017 4:51 AM EST) athologist Signature PTT >160 25 - 35 [facility] (Critical) sec [facility] LABORATORY Comment: Called by: HOWARD, Read [...] Address City/State/[place] [address] (ABNORMAL) Differential, Automated (08/08/2017 4:51 AM EST) [facility] gist Method Time Signature Neutrophils % 77.9 % [facility] LABORATORY Neutr Abs (ANC) 8.17 (H) 1.70 - [facility] 6.10 [facility] x10(3)/[facility] LABORATORY Lymphocytes % 10.3 % [facility] LABORATORY Lymphocytes Abs 1.1 0.9 - 3.2 [facility] x10(3)/[facility] LABORATORY Monocytes % 7.0 % [facility] LABORATORY Monocyte Abs 0.7 0.3 - 0.9 [facility] x10(3)/[facility] LABORATORY Eosinophils % 3.6 % [facility] LABORATORY Eosinophils Abs 0.4 0.0 - 0.4 [facility] x10(3)/[facility] LABORATORY Basophils % 0.5 % [facility] LABORATORY Basophils Abs 0.0 0.0 - 0.1 [facility] x10(3)/[facility] LABORATORY Immature Gran % 0.70 % ST. [...] Address City/State/ZIP Code Phon e Number [address] (ABNORMAL) Hemogram (08/08/2017 4:51 AM EST) Analysis Performed At Patho logist Time Signature WBC 10.5 (H) 4.0 - 9.5 [facility] x[facility](3)/[facility] LABORATORY RBC 3.27 (L) 4.58 - [place] [facility] 5.54 [facility] x10(6)/[facility] LABORATORY Hemoglobin 9.3 (L) 13.7 - [facility] 16.5 gm/dL [facility] LABORATORY Hematocrit 30.3 (L) 40.5 - [facility] 48.5 % [facility] LABORATORY MCV 92.7 82.9 - [facility] 93.1 [facility] LABORATORY MCH 28.4 27.5 - [place] [facility] 32.1 pg [facility] LABORATORY MCHC 30.7 (L) 32.0 - [facility] 35.7 gm/dL [facility] LABORATORY Platelets 252 145 - 357 [facility] x10(3)/[facility] LABORATORY RDWSD 54.6 (H) 36.0 - [place] 45.0 [facility] LABORATORY RDWCV 16.2 (H) 11.4 - [facility] RYAN 13.8 % [facility] LABORATORY MPV 9.1 7.6 - 12.9 [facility] LABORATORY nRBC % Auto 0.0 % [facility] LABORATORY nRBC Abs Auto 0.000 0.000 - [place] [facility] 0.000 [facility] x10(3)/[facility] LABORATORY Specimen Anatomical Collection Method Collection Time Receive d Time (Source) Location / / Volume Laterality Blood specimen 08/08/2017 4:51 AM 018 5:14 (specimen) EST AM EST Resulting Agency Comment Spec In Lab Yonathan Smith MD HEMATOLOGY ORDERABLES Performing Organization Address City/State/[place] [address] (ABNORMAL) Prothrombin Time (08/08/2017 [...] Address City/State/[place] [address] (ABNORMAL) Basic Metabolic Panel (non-fasting) (08/08/2017 4:51 AM EST) athologist Signature Glucose Lvl 229 (H) 65 - 199 [facility] mg/dL [facility]OR[facility]ORY Comment: [...] or in patients with acute kidney failure. [email or web address] [email or web address] Specimen Anatomical Collection Method Collection Time Receive d Time (Source) Location / / Volume Laterality Blood specimen 08/08/2017 4:51 AM 018 5:14 (specimen) EST AM EST Resulting Agency Comment Spec In Lab Yonathan Smith MD CHEMISTRY ORDERABLES Performing Organization Address City/[facility]/ZIP Code Phon e Number [address] POCT Glucose (08/08/2017 4:20 AM EST) athologist Signature POC Glucose 193 65 - [facility] Comment: Supplemental ranges: <140 mg/dL before meals <180 mg/dL all other times of the day Specimen Anatomical Collection Method Collection Time Receive d Time (Source) Location / / Volume Laterality Blood specimen 08/08/2017 4:20 AM 018 4:20 (specimen) EST AM EST Yonathan Smith MD POINT OF CARE TEST ORDERABLE S Performing Organization Address City/[facility]/ZIP Code Phon e Number [address] POCT Glucose (08/07/2017 11:11 PM EST) athologist Signature POC Glucose 124 65 - 199 [facility] mg/dL [facility] Comment: Supplemental ranges: <140 mg/dL before meals <180 mg/dL all other times of the day Specimen Anatomical Collection Method Collection Time Receive d Time (Source) Location / / Volume Laterality Blood specimen 08/07/2017 11:11 8 (specimen) PM EST 11:11 PM EST Yonathan Smith MD POINT OF CARE TEST ORDERABLE S Performing Organization Address City/[facility]/ZIP [place] [address] (ABNORMAL) APTT (08/07/2017 10:18 [...] Address City/State/ZIP [place] [address] POCT Glucose (08/07/2017 8:10 PM EST) athologist Signature POC Glucose 140 65 - 199 [facility] mg/dL [facility] Comment: Supplemental ranges: <140 mg/dL before meals <180 mg/dL all other times of the day Specimen Anatomical Collection Method Collection Time Receive d Time (Source) Location / / Volume Laterality Blood specimen 08/07/2017 8:10 PM 018 8:10 (specimen) EST PM EST Yonathan Smith MD POINT OF CARE TEST ORDERABLE S Performing Organization Address City/State/ZIP [place] [address] POCT Glucose (08/07/2017 5:27 PM EST) athologist Signature POC Glucose 187 65 - [address] [facility] Comment: Supplemental ranges: <140 mg/dL before meals <180 mg/dL all other times of the day Specimen Anatomical Collection Method Collection Time Receive d Time (Source) Location / / Volume Laterality Blood specimen 08/07/2017 5:27 PM 018 5:27 (specimen) EST PM EST Yonathan Smith MD POINT OF CARE TEST ORDERABLE S Performing Organization Address City/[facility]/ZIP [place] [address] POCT Glucose (08/07/2017 3:29 PM EST) athologist Signature POC Glucose 86 65 - 199 [facility] mg/dL [facility] Comment: Supplemental ranges: <140 mg/dL before meals <180 mg/dL all other times of the day Specimen Anatomical Collection Method Collection Time Receive d Time (Source) Location / / Volume Laterality Blood specimen 08/07/2017 3:29 PM 018 3:29 (specimen) EST PM EST Yonathan Smith MD POINT OF CARE TEST ORDERABLE S Performing Organization Address [facility] [place] [address] (ABNORMAL) APTT (08/07/2017 2:50 PM EST) athologist [facility] PTT 60 (H) 25 - 35 [...] HEMATOLOGY ORDERABLES Performing Organization Address City/[facility]/ZIP [facility] [place] [address] (ABNORMAL) POCT Glucose (08/07/2017 2:23 PM EST) athologist Signature POC Glucose 55 (L) 65 - 199 [facility] mg/dL [facility] Comment: Supplemental ranges: <140 mg/dL before meals <180 mg/dL all other times of the day Specimen Anatomical Collection Method Collection Time Receive d Time (Source) Location / / Volume Laterality Blood specimen 08/07/2017 2:23 PM 018 2:23 (specimen) EST PM EST Yonathan Smith MD POINT OF CARE TEST ORDERABLE S Performing Organization Address City/State/ZIP Code Phon e Number [address] POCT Glucose (08/07/2017 12:08 PM EST) P athologist Signature POC Glucose 77 65 - 199 [facility] mg/dL [facility] Comment: Supplemental ranges: <140 mg/dL before meals <180 mg/dL all other times of the day Specimen Anatomical Collection Method Collection Time Receive d Time (Source) Location / / Volume Laterality Blood specimen 08/07/2017 12:08 8 (specimen) PM EST 12:08 PM EST Yonathan Smith MD POINT OF CARE TEST ORDERABLE S Performing Organization Address City/State/ZIP [place] [address] (ABNORMAL) Differential, Automated (08/07/2017 7:30 AM EST) Patholo gist Method Time Signature Neutrophils % 73.8 % [facility] LABORATORY Neutr Abs (ANC) 7.17 (H) 1.70 - [facility] 6.10 [facility] x10(3)/[facility] LABORATORY Lymphocytes % 12.2 % [facility] LABORATORY Lymphocytes Abs 1.2 0.9 - 3.2 [facility] x10(3)/[facility] LABORATORY Monocytes % 9.0 % [facility] LABORATORY Monocyte Abs 0.9 0.3 - 0.9 [facility] x10(3)/[facility] LABORATORY Eosinophils % 3.9 % [facility] LABORATORY Eosinophils Abs 0.4 0.0 - 0.4 [facility] x10(3)/[facility] LABORATORY Basophils % 0.6 % [facility] LABORATORY Basophils Abs 0.1 0.0 - 0.1 [facility] x10(3)/[facility] LABORATORY Immature Gran % 0.50 % ST. [...] Gran Abs 0.05 (H) 0.00 - 0.04 x10(3)/[facility] LABORATORY Specimen Anatomical Collection Method Collection Time Receive d Time (Source) Location / / Volume Laterality Blood specimen 08/07/2017 7:30 AM 018 7:45 (specimen) EST AM EST Resulting Agency Comment Spec In Lab Yonathan Smith MD HEMATOLOGY ORDERABLES Performing Organization Address City/State/ZIP Code Phon e Number [place] [id number] [address] (ABNORMAL) Hemogram (08/07/2017 7:30 AM EST) Analysis Performed At Patho logist Time Signature WBC 9.7 (H) 4.0 - 9.5 [facility] x10(3)/[facility] LABORATORY RBC 3.54 (L) 4.58 - [facility] 5.54 [facility] x10(6)/[facility] LABORATORY Hemoglobin 9.9 (L) 13.7 - [facility] 16.5 gm/dL [facility] Hematocrit 32.3 (L) 40.5 - [facility] 48.5 % [facility] MCV 91.2 82.9 - [facility] 93.1 [facility] LABORATORY MCH 28.0 27.5 - [facility] 32.1 pg [facility] LABORATORY MCHC 30.7 (L) 32.0 - [facility] 35.7 gm/dL [facility] Platelets 312 145 - 357 [facility] x10(3)/[facility] LABORATORY RDWSD 53.2 (H) 36.0 - [facility] 45.0 fL [facility] LABORATORY RDWCV 16.0 (H) 11.4 - [facility] 13.8 % [facility] LABORATORY MPV 8.9 7.6 - 12.9 [facility] LABORATORY nRBC % Auto 0.0 % [facility] LABORATORY nRBC Abs Auto 0.000 0.000 - [facility] 0.000 [facility] x10(3)/[facility] LABORATORY Specimen Anatomical Collection Method Collection Time Receive d Time (Source) Location / / Volume Laterality Blood specimen 08/07/2017 7:30 AM 018 7:45 (specimen) EST AM EST Resulting Agency Comment Spec In Lab Yonathan Smith MD HEMATOLOGY ORDERABLES Performing Organization Address City/State/[place] [address] (ABNORMAL) Basic Metabolic Panel (non-fasting) (08/07/2017 7:30 AM EST) athologist Signature Glucose Lvl 80 65 - 199 [facility] mg/dL [facility] Comment: [...] HOSPITAL LABORATORY Estimated GFR 59 (L) >=60 [facility] LABORATORY Comment: The reported eGFR should be multiplied b y 1.2 for patients. The MDRD is not an appropriate measure o f renal function for patients with body mass extremes or in patients with acute kidney failure. http://[email or web address] [email or web address] [email or web address] Specimen Anatomical Collection Method Collection Time Receive d Time (Source) Location / / Volume Laterality Blood specimen 08/07/2017 7:30 AM 018 7:45 (specimen) EST AM EST Resulting Agency Comment Spec In Lab Yonathan Smith MD CHEMISTRY ORDERABLES Performing Organization Address City/[facility]/ZIP [facility] Phon e Number [address] POCT Glucose (08/07/2017 7:27 AM EST) athologist Signature POC Glucose 81 65 - 199 [facility] mg/dL [facility] Comment: Supplemental ranges: <140 mg/dL before meals <180 mg/dL all other times of the day Specimen Anatomical Collection Method Collection Time Receive d Time (Source) Location / / Volume Laterality Blood specimen 08/07/2017 7:27 AM 018 7:27 (specimen) EST AM EST Yonathan Smith MD POINT OF CARE TEST ORDERABLE S Performing Organization Address City/[facility] Phon e Number [address] APTT (08/07/2017 7:04 AM [...] Address City/State/ZIP [place] [address] (ABNORMAL) Prothrombin Time (08/07/2017 [...] Address City/State/ZIP [place] [address] POCT Glucose (08/07/2017 4:03 AM EST) athologist Signature POC Glucose 93 65 - [address] [facility]/dL [facility] Comment: Supplemental ranges: <140 mg/dL before meals <180 mg/dL all other times of the day Specimen Anatomical Collection Method Collection Time Receive d Time (Source) Location / / Volume Laterality Blood specimen 08/07/2017 4:03 AM 018 4:03 (specimen) EST AM EST Yonathan Smith MD POINT OF CARE TEST ORDERABLE S Performing Organization Address City/State/ZIP [place] [address] POCT Glucose (08/07/2017 12:04 AM EST) athologist Signature POC Glucose 107 65 - [address] [facility]/dL [facility] Comment: Supplemental ranges: <140 mg/dL before meals <180 mg/dL all other times of the day Specimen Anatomical Collection Method Collection Time Receive d Time (Source) Location / / Volume Laterality Blood specimen 08/07/2017 12:04 8 (specimen) AM EST 12:04 AM EST Yonathan Smith MD POINT OF CARE TEST ORDERABLE S Performing Organization Address City/[facility]/ZIP Code Phon e Number [address] POCT Glucose (08/06/2017 7:56 PM EST) P athologist Signature POC Glucose 178 65 - 199 [facility] mg/dL [facility] Comment: Supplemental ranges: <140 mg/dL before meals <180 mg/dL all other times of the day Specimen Anatomical Collection Method Collection Time Receive d Time (Source) Location / / Volume Laterality Blood specimen 08/06/2017 7:56 PM 018 7:56 (specimen) EST PM EST Yonathan Smith MD POINT OF CARE TEST ORDERABLE S Performing Organization Address City/State/ZIP Code Phon e Number [address] TcPO2 (08/06/2017 2:32 PM EST) Component Value Ref Test Analysis Performed At Patholo gist Range Method Time Signature VB Text Department: Vascular Surgery Lab VASCUBASE Report Patient: [id number] (GREGORY HOANG) CPT: 4932513 ICD10: I99.8 Referring Physician: YONATHAN SMITH ?? [...] documented in this encounter Care Teams Manager Eligibility Relationship Specialty Start Date End Date Lovely Vicente MD PCP - General 04/16/[address] [place] [address] [address] [place] [address] documented as of this encounter
--- OUTSIDE RECORDS SUMMARY | 2022-04-20 08:14 | XMS_ITS | Encounter Summary ---
:1945 Author Organization [place] [address] Care Team Providers Name Role Phone Lovely Vicente MD Primary Care Provider Encounter Details Date Type Department Care Team Description 08/09/2017 Clinical Support Same Day at [facility] Canceled (D-SCHED ERROR [facility] / CORRECT ION ) [place] [address] Social History Tobacco Use Types Packs/Day [...] Dolan MD [facility] er [place], [place] [address] (Wo rk) 05/28/2022 Laboratory Appointment Lab 05/28/2022 Office Visit Cardiology Zulma Dolan MD [facility] [place] [address] Liz Poole PA [facility] Cardiology Dept [address] 06/10/2022 Office Visit Dermatology Laura Scherer MD [facility] [address] [place], [place] [address] (Wo rk) documented as of this encounter Procedures Procedure Name Priority Date/Time Associated Diagnosis Comme nts BODY PIERCER 08/09/2017 12:00 AM Resul ts for this SCAN EST procedure are i n the results section. documented in this encounter Results SCAN DOC: BODY PIERCER (08/09/2017 12:00 AM EST) Narrative 08/09/2017 12:00 AM EST This result has an attachment that is no t available. Ordered by an unspecified provider. Scanning Provider MEDIA MGR SCAN EXT ORDR/RSLT documented in this encounter Visit Diagnoses Not on filedocumented in this encounter Care Teams Forging Die Sinker Relationship Specialty Start Date End Date Lovely Vicente MD PCP - General 04/16/[address] [place] [address] documented as of this encounter
--- OUTSIDE RECORDS SUMMARY | 2022-04-20 08:15 | XMS_ITS | Encounter Summary ---
:1945 Author Organization [facility] [place] [address] Care Team Providers Name Role Phone Lovely Vicente MD Primary Care Provider Encounter Details Date Type Department Care Team Description 07/29/2017 Transcribe Orders Laboratory Lovely Vicente MD [address] [address] [place] [address] [phone] (Wo rk) Social History Tobacco Use Types [...] [facility] er [address] [place] [address] (Wo rk) 05/28/2022 Laboratory Appointment Lab 05/28/2022 Office Visit Cardiology Zulma [place]olan [place] [address] Liz Poole PA [facility] [place] [address] 06/10/2022 Office Visit Dermatology Laura Scherer MD [facility] ER [address] [place], [place] [address] (Wo rk) documented as of this encounter Visit Diagnoses Not on filedocumented in this encounter Care Teams Neck Band Operator Relationship Specialty Start Date End Date Lovely Vicente MD PCP - General 04/16/[address] [place] [address] documented as of this encounter
--- OUTSIDE RECORDS SUMMARY | 2022-04-20 08:15 | XMS_ITS | Encounter Summary ---
:1945 Author Organization [facility] [place] [address] Care Team Providers Name Role Phone Lovely Vicente MD Primary Care Provider Reason for Visit Reason Comments Deep Vein Thrombosis Auth/Cert Specialty Diagnoses / Procedures Referred By Contact Refer red To Contact Diagnoses Critical lower limb ischemia CELLULITIS RT FOOT Procedures EMERGENCY Referral ID Status Reason Start Date Expiration Date Visits Requ ested Visits Authorized [id number] 1 1 Encounter Details Date Type Department Care Team Description 08/04/2017 Office Visit Vascular Surgery at [facility] itical lower limb [facility] ischemia [facility] [address] [place], [place] VASCULAR SURGERY [id number] [place] [address] [phone] Social History Tobacco Use Types Packs/Day Years [...] on Coumadin. ??He presented to [facility] on 07/20 with mottled toes on the [...] MD [facility] [place] [address] (Wo rk) 05/28/2022 Laboratory Appointment Lab 05/28/2022 Office Visit Cardiology Zulma Dolan MD [facility] [place] [address] Liz Poole PA [facility] [place] [address] 06/10/2022 Office Visit Dermatology Laura Scherer MD [facility] ER DR [address] [place], [place] [address] (Wo rk) documented as of this encounter Visit Diagnoses Diagnosis Critical lower limb ischemia Unspecified circulatory system disorder documented in this encounter Care Teams Print Color Matcher Relationship Specialty Start Date End Date Lovely Vicente MD PCP - General 04/16/15 [facility] [address] [place], [place] [address] documented as of this encounter
--- OUTSIDE RECORDS SUMMARY | 2022-04-20 08:15 | XMS_ITS | Encounter Summary ---
:1945 Author Organization [facility] [place] [address] Care Team Providers Name Role Phone Lovely Vicente MD Primary Care Provider Encounter Details Date Type Department Care Team Description 08/02/2017 Telephone Pain Management at Angeles [place], [place] [address] Social History Tobacco Use Types Packs/Day [...] Management Center Preauthorization Request Patient: Don Fatima [id number] Fax received from [facility] requesting we obtain prior authorization for Lidocaine patches prescribed by Barbra Soares APRN. RX insurance plan: [employer] insurance telephone: [phone] Patient Diagnosis: right foot pain secondary to PVD and ischemia Previous medications attempted: Tylenol, Tramadol, Dilaudid The following action was taken after discussion with the health services director: _x_ pharmacy informed Authorized dosage or amount: 5% on patch on for 12 hours, then remove for 12 hours. Angeles Rodrigez, RN documented in this encounter Plan of Treatment Upcoming Encounters Date Type Specialty Care Team Description 05/28/2022 Appointment Cardiology Zulma Dolan MD [facility] [place], [place] [address] (Wo rk) 05/28/2022 Laboratory Appointment Lab 05/28/2022 Office Visit Cardiology Zulma Dolan MD [facility] [place] [address] [facility] [place] [address] 06/10/2022 Office Visit Dermatology Laura Scherer MD [facility] [address] [place], [place] [address] (Wo rk) documented as of this encounter Visit Diagnoses Not on filedocumented in this encounter Care Teams Transmission Supervisor Relationship Specialty Start Date End Date Lovely Vicente MD PCP - General 04/16/[address] [place] [address] documented as of this encounter
--- OUTSIDE RECORDS SUMMARY | 2022-04-20 08:15 | XMS_ITS | Encounter Summary ---
:1945 [place] [address] Care Team Providers Name Role Phone Lovely Vicente MD Primary Care Provider Encounter Details Date Type Department Care Team Description 08/04/2017 Notes Only Pain Management at Barbra Bruno, ST[facility] [place] [address] [place] [address] [phone] (Wo rk) Social History Tobacco Use Types [...] bid) at this time. Barbra Soares, MSN, BELT CLEANER-BC, [facility] documented in this encounter Plan of Treatment Upcoming Encounters Date Type Specialty Care Team Description 05/28/2022 Appointment Cardiology Zulma Dolan MD [facility] [place], [place] [address] (Wo rk) 05/28/2022 Laboratory Appointment Lab 05/28/2022 Office Visit Cardiology Zulma Dolan MD [facility] [place] [address] Liz Poole PA [facility] [place] [address] 06/10/2022 Office Visit Dermatology Laura Scherer MD [facility] [address] [place], [place] [address] (Wo rk) documented as of this encounter Visit Diagnoses Not on filedocumented in this encounter Care Teams Tin Recovery Worker Relationship Specialty Start Date End Date Lovely Vicente MD PCP - General 04/16/[address] [place] [address] documented as of this encounter
--- OUTSIDE RECORDS SUMMARY | 2022-04-20 08:15 | XMS_ITS | Encounter Summary ---
:1945 Author Organization [facility] [address] Care Team Providers Name Role Phone Lovely Vicente MD Primary Care Provider Reason for Visit Auth/Cert Specialty Diagnoses / Procedures Referred By Contact Refer red To Contact Diagnoses Critical lower limb ischemia CELLULITIS RT FOOT Procedures EMERGENCY Referral ID Status Reason Start Date Expiration Date Visits Requ ested Visits Authorized [id number] 1 1 Encounter Details Date Type Department Care Team Description 08/04/2017 [facility] [place] [phone] Social History Tobacco Use Types Packs/Day Years [...] Zulma Dolan MD [facility] [place], [place] [address] (Wo rk) 05/28/2022 Laboratory Appointment Lab 05/28/2022 Office Visit Cardiology Zulma Dolan MD [facility] [place] [address] Liz Poole PA [facility] [place] [address] 06/10/2022 Office Visit Dermatology Laura Scherer MD [facility] [address] [place], [place] [address] (Wo rk) documented as of [...] Department: Vascular Surgery Lab VASCUBASE Report Patient: [id number] (DON HOANG) CPT: 30824 ICD10: I82.541 Referring Physician: MEÑO HUTSON ?? [...] General 04/16/[address] [place] [address] documented as of this encounter
--- OUTSIDE RECORDS SUMMARY | 2022-04-20 08:15 | XMS_ITS | Encounter Summary ---
:1945 [place] [address] Care Team Providers Name Role Phone Lovely Vicente MD Primary Care Provider Reason for Visit Auth/Cert Specialty Diagnoses / Procedures Referred By Contact Refer red To Contact Diagnoses Critical lower limb ischemia CELLULITIS RT FOOT Procedures EMERGENCY Referral ID Status Reason Start Date Expiration Date Visits Requ ested Visits Authorized [id number] 1 1 Encounter Details Date Type Department Care Team Description 08/09/2017 Anesthesia Event Main Operating Room Daniele Lizama MD [facility] [place] [address] [facility] Rob Jones MD [facility] [place] [address] [place] [address] Anesthesia Record Procedure Summary Procedure Name [...] Knowles, Dory arm), right; VAMSI Rios, RN eivy-tks-ghaadr catheter system; 20 gauge; 08/16/17; 1047 PIV 07/29/17; 1413; median 07/29/17 1413 by 08/16/17 1047 by cubital vein (antecubital Magdalene Hickey Williams, Dory fossa), left; VAMSI Wyatt, RN srdt-kxd-sfbkuf catheter system; 20 gauge; 08/16/17; 1047 PIV 08/06/17; 1742; cephalic 08/06/17 1742 by 0920 by vein (lateral side of Taylor Laureano Danah y, Caitlyn C, arm), right; VAMSI BONNER hodo-peh-zvjvyl catheter system; 22 gauge, 1 in length; Eliseo LAUREANO RN VAS; distraction, intradermal injection, tolerated well, appears comfortable; 0; 08/16/17; 0920 Wound 08/07/17; 1335; knee; 08/07/17 1335 by 08/16/17 1047 by laceration; wound occured Barbara Albert iams, Dory AIRCRAFT ENGINE DISMANTLER; 08/16/17; 1047 VAMSI Alonzo, RN PIV 08/07/17; 1734; cephalic 08/07/17 1734 by 1047 by vein (lateral side of Kendrick, Carlos W, Willia ms, Dory arm), left; MARCIE Wyatt RN somx-non-pvphua catheter system; 22 gauge; distraction, intradermal injection, [...] Stop Room / Location 08/09/17 0802 0901 [facility] OR 14 / [facility] MAIN OR Procedure Diagnosis Surgeon Responsible Provider AMPUTATION, 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 Nerve [...] [facility] MAIN OR Social History Substance [...] adequate IV access. Brody Santillan MD PGY-2, On Air Talent Pager #[phone] Anesthesiology Staff (Dewhirst): Pre-op summary note as [...] Zulma Dolan MD [facility] [address] [place], [place] [address] (Wo rk) 05/28/2022 Laboratory Appointment Lab 05/28/2022 Office Visit Cardiology Zulma Dolan MD [facility] [place] [address] Liz Poole PA [facility] [place] [address] 06/10/2022 Office Visit Dermatology Laura Scherer MD [facility] [address] [place], [place] [address] (Wo rk) documented as [...] Length: 10 cm Gauge: 21 Needle Type: H-wiram-nkgch Medication injection made in crementally with aspirations. [...] Procedure) documented in this encounter Care Teams Java Developer With Security Clearance Relationship Specialty Start Date End Date Lovely Vicente MD PCP - General 04/16/15 [facility] [address] [place] [address] documented as of this encounter
--- OUTSIDE RECORDS SUMMARY | 2022-04-20 08:15 | XMS_ITS | Encounter Summary ---
:1945 [place] [address] Care Team Providers Name Role Phone Lovely Vicente MD Primary Care Provider Encounter Details Date Type Department Care Team Description 08/04/2017 Notes Only Cardiac Surgery Makayla Wilson CORRUGATOR OPERATOR [facility] [place] [address] CARDIAC SURGERY [phone] [place], [place] [address] (Wo rk) Social History [...] Zulma Dolan MD [facility] [address] [place], [place] [address] (Wo rk) 05/28/2022 Laboratory Appointment Lab 05/28/2022 Office Visit Cardiology Zulma Dolan MD [facility] [place] [address] Liz Poole PA [facility] [place] [address] 06/10/2022 Office Visit Dermatology Laura Scherer MD [facility] [address] [facility] [place], [place] [address] (Wo rk) documented as of this encounter Visit Diagnoses Not on filedocumented in this encounter Care Teams Button Broacher Relationship Specialty Start Date End Date Lovely Vicente MD PCP - General 04/16/[address] [place] [address] documented as of this encounter
--- OUTSIDE RECORDS SUMMARY | 2022-04-20 08:15 | XMS_ITS | Encounter Summary ---
:1945 [place] [address] Care Team Providers Name Role Phone Lovely Vicente MD Primary Care Provider Encounter Details Date Type Department Care Team Description 07/29/2017 Hospital Encounter Vascular Lab at Critic monica Huber lower limb [facility] [place] [id number] Social History Tobacco Use Types Packs/Day Years [...] Zulma Dolan MD [facility] [place], [place] [address] (Wo rk) 05/28/2022 Laboratory Appointment Lab 05/28/2022 Office Visit Cardiology Zulma Dolan MD [facility] [place] [address] Liz Poole PA [facility] [place] [address] 06/10/2022 Office Visit Dermatology Laura Scherer MD [facility] [address] [place], [place] [address] (Wo rk) documented as of this encounter Visit Diagnoses Diagnosis Critical lower limb ischemia Unspecified circulatory system disorder documented in this encounter Care Teams Chip Tuner Relationship Specialty Start Date End Date Lovely Vicente MD PCP - General 04/16/[address] [place] [address] documented as of this encounter
--- OUTSIDE RECORDS SUMMARY | 2022-04-20 08:15 | XMS_ITS | Encounter Summary ---
:1945 Author Organization [facility] [place] [address] Care Team Providers Name Role Phone Lovely Vicente MD Primary Care Provider Reason for Visit Auth/Cert Specialty Diagnoses / Procedures Referred By Contact Refer red To Contact Diagnoses Critical lower limb ischemia CELLULITIS RT FOOT Procedures EMERGENCY Referral ID Status Reason Start Date Expiration Date Visits Requ ested Visits Authorized [id number] 1 1 Encounter Details Date Type Department Care Team Description 08/06/2017 Clinical Support [place] [facility] [place] [facility] [place] [place] [address] Social History Tobacco Use Types Packs/Day [...] documented in this encounter Progress Notes Amparo Feldamn RN - 08/06/2017 12:00 PM EST Pt seen in Pre Admit Testing 1230 today. Questionarre reviewed, meds and allergies reviewed. Lab done and EKG done. Consulted w Angeles Cocc about EKG and vs were 113/58,hr70 o2 sat 98, room air. Pt w noother symptoms except severe right foot pain. [facility] clinic called as pt on route [...] Dolan MD [facility] [address] [place], [place] [address] (Wo rk) 05/28/2022 Laboratory Appointment Lab 05/28/2022 Office Visit Cardiology Zulma Dolan MD [facility] [address] [facility] [place] [address] 06/10/2022 Office Visit Dermatology Laura Scherer MD [facility] [address] [place], [place] [address] (Wo rk) documented as of [...] 444 ms MUSE SYSTEM (Bezet) Calculated P [place] 44 degrees MUSE SYSTEM Calculated R [place] -31 degrees MUSE SYSTEM Calculated T [place] 106 degrees MUSE SYSTEM INTERPRETATION Normal sinus [...] disorder documented in this encounter Care Teams Numerical Control Programmer Relationship Specialty Start Date End Date Lovely Vicente MD PCP - General 04/16/[address] [place] [address] documented as of this encounter
--- OUTSIDE RECORDS SUMMARY | 2022-04-20 08:15 | XMS_ITS | Encounter Summary ---
:1945 [place] [address] Care Team Providers Name Role Phone Lovely Vicente MD Primary Care Provider Encounter Details Date Type Department Care Team Description 08/03/2017 Hospital Encounter Radiology Library at [place], Tommy Mijares [facility] [place] [address] VASCULAR SURGERY [phone] [place], [place] [address] (Wo rk) Social History Tobacco [...] Zulma Dolan MD [facility] [address] [place], [place] [address] (Wo rk) 05/28/2022 Laboratory Appointment Lab 05/28/2022 Office Visit Cardiology Zulma Dolan MD [facility] [place] [address] Liz Poole PA [facility] [place] [address] 06/10/2022 Office Visit Dermatology Laura Scherer MD [facility] [address] [place], [place] [address] [...] Volume Narrative [facility] - 08/03/2017 6:03 PM EST This exam is for storage only and is aut o-finalizing. Arik Clement MD G FILM LIBRARY ORDERABLES Performing Organization Address City/State/ZIP Code Phon e Number [place], [place] documented in this encounter Visit Diagnoses Diagnosis Pain Generalized pain documented in this encounter Care Teams Equal Opportunity Representative Relationship Specialty Start Date End Date Lovely Vicente MD PCP - General 04/16/[address] [place] [address] documented as of this encounter
--- OUTSIDE RECORDS SUMMARY | 2022-04-20 08:15 | XMS_ITS | Encounter Summary ---
:1945 Author Organization [facility] [place] [address] Care Team Providers Name Role Phone Lovely Vicente MD Primary Care Provider Encounter Details Date Type Department Care Team Description 08/04/2017 Orders Only Cardiac Surgery Makayla Wilson APRN [facility] [place] [address] CARDIAC SURGERY [phone] [place], [place] [address] (Wo rk) Social History [...] MD [facility] er [place], [place] [address] (Wo rk) 05/28/2022 Laboratory Appointment Lab 05/28/2022 Office Visit Cardiology Zulma Dolan MD [facility] [place] [address] Liz Poole PA [facility] [place] [address] 06/10/2022 Office Visit Dermatology Laura Scherer MD [facility] ER [address] [place], [place] [address] (Wo rk) documented as of this encounter Visit Diagnoses Not on filedocumented in this encounter Care Teams Box Office Attendant Relationship Specialty Start Date End Date Lovely Vicente MD PCP - General 04/16/[address] [place] [address] documented as of this encounter
--- OUTSIDE RECORDS SUMMARY | 2022-04-20 08:15 | XMS_ITS | Encounter Summary ---
:1945 Author Organization [facility] [place] [address] Care Team Providers Name Role Phone Lovely Vicente MD Primary Care Provider Reason for Visit Auth/Cert Specialty Diagnoses / Procedures Referred By Contact Refer red To Contact Diagnoses Critical lower limb ischemia CELLULITIS RT FOOT Procedures EMERGENCY Referral ID Status Reason Start Date Expiration Date Visits Requ ested Visits Authorized [id number] 1 1 Encounter Details Date Type Department Care Team Description 08/04/2017 Laboratory Appointment Lab 3L [facility] [place] [address] Social History Tobacco Use Types Packs/Day [...] MD [facility] [place] [address] [place] [address] (Wo rk) 05/28/2022 Laboratory Appointment Lab 05/28/2022 Office Visit Cardiology Zulma Dolan MD [facility] [place] [address] Liz Poole PA [facility] [place] [address] 06/10/2022 Office Visit Dermatology Laura Scherer MD [facility] [address] [place], [place] [address] (Wo rk) documented as of this encounter Visit Diagnoses Not on filedocumented in this encounter Care Teams Psychometrist Relationship Specialty Start Date End Date Lovely Vicente MD PCP - General 04/16/15 [facility] [address] [place], [place] [address] documented as of this encounter
--- OUTSIDE RECORDS SUMMARY | 2022-04-20 08:15 | XMS_ITS | Encounter Summary ---
:1945 [place] [address] Care Team Providers Name Role Phone Lovely Vicente MD Primary Care Provider Encounter Details Date Type Department Care Team Description 08/03/2017 Hospital Encounter Radiology Library at [place], Tommy Mijares [facility] [place] [address] VASCULAR SURGERY [phone] [place], [place] [address] (Wo rk) Social History Tobacco [...] Dolan MD [facility] [place], [place] [address] (Wo rk) 05/28/2022 Laboratory Appointment Lab 05/28/2022 Office Visit Cardiology Zulma Dolan MD [facility] [place] [address] Liz Poole PA [facility] [place] [address] 06/10/2022 Office Visit Dermatology Laura Scherer MD [facility] [address] [place], [place] [address] (Wo rk) documented as of [...] Time Received Time / Laterality Volume Narrative [facility] - 08/03/2017 6:01 PM EST This exam is for storage only and is aut o-finalizing. Arik Clement MD G FILM LIBRARY ORDERABLES Performing Organization Address City/State/ZIP Code Phon e Number [place], [place] documented in this encounter Visit Diagnoses Diagnosis Pain Generalized pain documented in this encounter Care Teams Hammerer Relationship Specialty Start Date End Date Lovely Vicente MD PCP - General 04/16/[address] [place] [address] documented as of this encounter
--- OUTSIDE RECORDS SUMMARY | 2022-04-20 08:15 | XMS_ITS | Encounter Summary ---
:1945 Author Organization [facility] [place] [address] Care Team Providers Name Role Phone Lovely Vicente MD Primary Care Provider Reason for Visit Auth/Cert Specialty Diagnoses / Procedures Referred By Contact Refer red To Contact Diagnoses Critical lower limb ischemia CELLULITIS RT FOOT Procedures EMERGENCY Referral ID Status Reason Start Date Expiration Date Visits Requ ested Visits Authorized [id number] 1 1 Encounter Details Date Type Department Care Team Description 08/09/2017 Surgery Main Operating Room Yonathan Smith AM PUTATION, Mary Hitchcock MD TRANSMETATARSAL ([facility] 12.71) [facility] DR Siddiqui [place] [address] [place] [address] [phone] Social History Tobacco Use Types Packs/Day Years [...] EST Inpatient - Discharge Summary Patient Name: Gergory Hoang Patient Age: 72 y.o. 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 Patient [...] Dorsalis Pedis (Ankle) Artery ?132 ? 0.94 ??Teller-Biphasic ? Posterior Tibial (Ankle) Artery ??154 ? 1.10 ??Teller-Biphasic ? Fourth Toe ? 67 ?0.48 ?? [...] the foot. Discharge Conditions/Prognosis: Good Discharge to: [facility] Rehab Discharge Medications: Your Medications [...] For any problems or questions please call [phone] ZELDA Smith, electronic drafter Nurse Clinician For issues on weeknights after 5pm and weekends please call [phone] and ask for the Vascular Fellow nondestructive tester. General Instructions None Future Appointments and Orders Future Appointments Provider Department Dept Phone 08/26/2017 4:00 PM Aurelia Rivera PA Vascular Surgery at [place] [phone] 09/07/2017 3:00 PM LAB, THREE L Lab 3L [facility] [phone] 09/07/2017 4:00 PM Luz Prescott MD Endocrinology at [place] [phone] 09/09/2017 8:00 AM Barbra Soares APRN Pain Management at [place] [phone] Please bring a list of your current [...] For any problems or questions please call [phone] ZELDA Smith, electronic drafter Nurse Clinician For issues on weeknights after 5pm and weekends please call [phone] and ask for the Vascular Fellow nondestructive tester. documented in this encounter Medications at Time [...] Management Discharge Note Patient Destination: [facility] ([facility]) [address] [id number] Transportation: with (at bedside) Time of Discharge: by 12 noon Level of Care: swing Patient Aware: yes Family Notified: yes Md to call report to: Yissel Quintero RESEARCH CHEF already called RN to call report to: [phone] Shirin Wolf Office of Care Management Pager [phone] Shirin Wolf RN - 08/16/2017 10:50 AM EST [facility] has offered pt swing bed. Pt and accept bed. will transport via car. RESEARCH CHEF Yissel Quintero aware; d/c paperwork will be completed by 12 noon. [facility] requests pt arrival by 1400 today; RESEARCH CHEF, RN, and family aware. RESEARCH CHEF called [facility] and was told that they prefer pt to arrive with wound vac dressing applied but clamped. RESEARCH CHEF applied new wound vac dressing. RN has [facility] number to call report. PASSR completed; RESEARCH CHEF paged to request provider signature in highlighted space. Indigo from [facility] notified via email that home wound vac now cancelled; [facility] has picked up from room and order cancelled. Packet started and provided to microfilm duplicating unit supervisor. Medicare important message explained to patient, patient signed. Copy provided to patient and signature page to OCM for inclusion in pt EMR. L Radha Powers Yoselin - 08/16/2017 10:34 AM EST Office of Care Management/Principal Process Engineer Patient Name: Gregory Hoang : 1945 Patient has been offered a swing bed at [facility]. The patient will be transported by private transportation. No MD to MD report necessary Please call Nursing Report to [phone], ask for ham curer. Info to accompany patient: Narcotic Prescriptions Copies of Medication Administration Records and IV sheets for past 10 days. Plan: Principal Process Engineer will be available to the patient and Registered Dietetic Technician-RN and/or Child Care Provider for further assistance. Patient will be discharged to: [place] [id number] Radha Powers, Principal Process Engineer Mira Truong, VAMSI - 08/15/2017 10:05 PM EST [address] Flores to ask if he wanted to hold metoprolol dose. BP 95/58. OK to hold this dose Courtney Brito - 08/15/2017 3:26 PM EST Office of Care Management(OCM)/Principal Process Engineer(RS)/ D/C Planning re : Patient is medically ready for d/c today. RS has been in contact with [facility] to see if they could offer a bed. [facility] is still reviewing the case and need their MD to review chart prior to accepting or declining. OCM team needs to check in with [facility] tomorrow to check on status. 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 Vac in place. [...] patient's referral to: [facility] PHONE: [phone] FAX: [phone] CM spoke with RS who said that [...] rehab. Await recommendations from PT. Covering pager #[phone]. 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 Composition Worker Kaitlin Saha, RN Pager #[phone] Payam Rosales - 08/13/2017 2:37 PM EST Senior Marketing Associate Encounter Note Patient Name: Gregory Hoang : [id number] MR#: [id number] Admit Date: 08/06/2017 1:41 PM Hospital Day 7 days Narrative: Visited to introduce and assess acceptance of Senior Marketing Associate services. Pt was awake, alert, oriented and in chair and family was there. Assessment:Patient coping positively with stresses of illness/hospitalization at this time. Pt says that he is hoping to get better and his family was there. Pt says that he has family care and supportand taking one day at time. Intervention and Outcome: Provided emotional support and encouraging presence. 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 A letter describing our affiliations was reviewed with them and theywere educated about their right to choose where referrals are placed. Patient requests referral to [facility]. PHONE: [phone] FAX: [phone]. And Home NPWT (Negative Pressure Wound Therapy) aka wound vac device made available to pt. Serial # confirmed. Reviewed [facility] Proof of Delivery/Assignment of Benefits Statement(POD/AOB) Form w patient or authorized agent signing on behalf of patient. Copy of POD/AOB provided to pt and other copy faxed to [employer] @ fax# [phone] Expected date of discharge: 08/12/2017. Referral routed to the Principal Process Engineer for matching with agency/vendor and to provide any required information. Yonathan Starkey MD - 08/12/2017 8:05 AM EST vasc staff: Pain better. Needs ambulatory assessment. Try to use heel block shoe, if not flat shoe ok. 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 Address: [address] [place] [address] [place] [address] (home) Mobile: Telephone Information: Referring Provider: No [...] 7.93) performed by Yuan Retana MD at [facility] OR ??? PRO [...] 1 tablet by mouth daily. 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 Unsuccessful draw attempt, another lpn private duty will come [facility] to collect blood for PTT test. 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 Vascular resident nondestructive tester and will forward result to the team prior to rounds. 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 Patient [...] left blue toes with CTA showing R STEEPLECHASE JOCKEY pseudoaneurysm (now thrombosed) and occluded ATs bilaterally. [...] 2.5x80 5. Completion RLE angiogram 6. L STEEPLECHASE JOCKEY angiogram 7. 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 - L STEEPLECHASE JOCKEY angriogram demonstrated: High femoral bifurcation over the proximal half of the femoral head. L STEEPLECHASE JOCKEY access in the distal L STEEPLECHASE JOCKEY. - Closure device: Mynx Technical Procedure: The [...] for a 45cm 5F Destination. V18 and [place] and QuickCross catheters were used to select [...] 5F. A stationed picture of the L STEEPLECHASE JOCKEY was performed as the patient was noted to have a very high bifurcation. Access appeared in the distal R STEEPLECHASE JOCKEY. Closure and sheath removal was performed with [...] PM EST 1440 report called to 5 steilacoom nurse Tessa RN documented in this encounter [...] with pt and pt's spouse. Discharge to [facility]. Goal: Individualization & Mutuality Outcome: [...] sit/sit to supine -- Bed Mobility Goal, [place] Level independent -- Bed Mobility Goal, Date [...] days -- Transfer Training Goal, Activity Type otx-zb-eezyj/cxrgz-ah-uby -- Transfer Train Goal, [place] Level conditional independence -- Transfer Train Goal, [...] call cabello within reach, Hourly rounding by RN/RIDING DOUBLE. Bed alarm / Chair alarm. Patient-specific fall [...] MD - 08/15/2017 6:28 PM EST [facility] Operative Note Patient Name: Gregory Hoang : [id number] MR#: [id number] Case Date: 08/09/2017 Surgeon: Surgeon(s) and Role: [...] 2.5x80 5. Completion RLE angiogram 6. L STEEPLECHASE JOCKEY angiogram 7. Mynx closure Precautions/Restrictions: fall, sternal [...] other (see comments) (or swing bed) Pager: [phone] BASSAM ELIAS, PT 08/14/2017 Inpatient Physical Therapy [...] to Achieve by discharge Gait Training Goal, [place] Level conditional independence;set up required Gait Training [...] these facilities over the weekend except for [facility]. CM spoke with [facility] CM Drea Sandhu, VAMSI who said that they do not anticipate any beds over the weekend. Reviewed with patient/ that they need to be aware that patient will need to take the first bed offered at the facilities that they make referrals to. Their choices are: 1- [facility] PHONE: [phone] FAX: [phone] 2- [facility] ([facility]) [address] [place] [address] 3- [facility])([facility]) [address] [place] [address] I have discussed Medicare/Private Insurance [...] RS/CM on Wednesday to follow-up. Covering pager #[phone] for today. Plan of Care - Henrique [...] with additional findings of pseudoaneurysm on R STEEPLECHASE JOCKEY and bilateral anterior tibial artery occlusions. Was [...] an outpatient once discharged. Have patient call [phone] to set up an appointment. Follow-up: Dermatology will sign-off for now. Please do not hesitate to contact us if you have any questions orconcerns. Impression and Recommendations discussed with primary team on 08/13/2017. Karo Henderson MD Resident in Dermatology Section of Dermatology, Department of Surgery [facility] Pager [phone] Patient seen and evaluated with staff Treadle Cut Off Saw Operator: Halima Cordero MD Section of Dermatology [facility] Level of Resident Supervision: Direct [...] Outcome: Ongoing (Interventions Implemented as Appropriate) 08/12/17 2026 Coping/Psychosocial Plan Of Care Reviewed With patient;spouse [...] 2.5x80 5. Completion RLE angiogram 6. L STEEPLECHASE JOCKEY angiogram 7. Mynx closure Active Non-Hospital Problems [...] home with home health ([facility] PT[facility]OT) Pager: [phone] YASIR TELLO OT 08/12/2017 Occupational Therapy Rehabilitation [...] 2.5x80 5. Completion RLE angiogram 6. L STEEPLECHASE JOCKEY angiogram 7. Mynx closure Past Medical History: [...] with 24/7 assistance and maximal services) Pager: [phone] NICHOLAS MORA, PT 08/12/2017 Physical Therapy Rehabilitation [...] sit/sit to supine -- Bed Mobility Goal, [place] Level independent -- Bed Mobility Goal, Outcome Achieved -- goal ongoing Goal: Gait Training Goal Stand Alone Therapy Goal Outcome: Ongoing (Interventions Implemented as Appropriate) 08/11/17 1310 08/12/17 1510 Gait Training Goal Gait Training Goal, Date Established 08/11/17 -- Gait Training Goal, Time to Achieve 5 - 7 days -- Gait Training Goal, [place] Level conditional independence -- Gait Training Goal, [...] days -- Transfer Training Goal, Activity Type fap-qr-jqfqs/nussl-wg-lpo -- Transfer Train Goal, [place] Level conditional independence -- Transfer Training Goal, [...] MD - 08/11/2017 2:52 PM EST [facility] Operative Note Patient Name: Gregory Hoang : [id number] MR#: [id number] Case Date: 08/11/2017 Surgeon: Surgeon(s) and Role: [...] 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 Completion RLE angiogram 6. L STEEPLECHASE JOCKEY angiogram 7. Mynx closure He is very [...] Anticipated Discharge Disposition: inpatient rehabilitation facility Pager: [phone] LAWRENCE GONZALEZ, PT 08/11/2017 Physical Therapy Rehabilitation [...] to sit/sit to supine Bed Mobility Goal, [place] Level independent Goal: Gait Training Goal Stand Alone Therapy Goal Outcome: Ongoing (Interventions Implemented as Appropriate) 08/11/17 1310 Gait Training Goal Gait Training Goal, Date Established 08/11/17 Gait Training Goal, Time to Achieve 5 - 7 days Gait Training Goal, [place] Level conditional independence Gait Training Goal, Assist [...] 7 days Transfer Training Goal, Activity Type xim-st-ncnqx/osgju-hs-iaz Transfer Train Goal, [place] Level conditional independence Plan of David DelloAnnetta [...] Status -- 0 Score -- 85 OTHER Mrak Fall Risk -- High Restraint Interventions Safety [...] call cabello within reach, Hourly rounding by RN/RIDING DOUBLE. Bed alarm / Chair alarm. ? Patient-specific [...] Hospitalizations Within the Past 30 Days: [facility] 07/20/2017 Anticipated Length Of Stay (If known): Expected Length of Hospitalization: 5-7 days2-3 days Current Decision-Making Capacity: Alert and oriented x 4 Advance Care Planning: on file Kisha Hoang [facility] [phone] Current Coping/Education/Information Needs: pt and spouse state [...] Health/Prescription Coverage: Primary Insurance: MEDICARE Secondary Insurance: [employer] [place] Prescription Coverage: See above Preferred Pharmacy: [facility] Other: N/A Primary Care Provider: Lovely Vicente MD [phone] Patient/Caregiver Goals of Treatment: Patient plans to [...] of care planning. Kaitlin Saha RN Pager: [phone] Plan of Care - Melba Jaramillo RN [...] Overview Goal: Plan of Care Review 08/08/17 0594 Coping/Psychosocial Plan Of Care Reviewed With patient [...] call cabello within reach, Hourly rounding by RN/RIDING DOUBLE. Bed alarm / Chair alarm. Patient-specific fall prevention interventions for sensory deficits provided, if applicable: [X] Yes CPG GOAL OUTCOME EVALUATION: Goal: Fall Prevention-Safe Patient Handling Outcome: Ongoing (Interventions Implemented as Appropriate) 08/06/17 1700 08/06/17199908/07/17 4554 Positioning Body Position -- up in chair [...] at bedside and MD TEAM Carrying pager [phone] contacted (via Radio page) and notified of [...] Cardiology Zulma Dolan MD [facility] [place], [place] [address] (Wo rk) 05/28/2022 Laboratory Appointment Lab 05/28/2022 Office Visit Cardiology Zulma Dolan MD [facility] [place] [address] Liz Poole PA [facility] [place] [address] 06/10/2022 Office Visit Dermatology Laura Scherer MD [facility] [address] [place], [place] [address] (Wo rk) documented as [...] TYPE AND SCREEN Routine 08/09/2017 1:10 ([facility]/SHANDA) AM EST BASIC METABOLIC PANEL Routine 08/09/2017 [...] 160 65 - 199 [facility] mg/dL [facility] Comment: Supplemental ranges: <140 mg/dL before meals <180 mg/dL all other times of the day Specimen Anatomical Collection Method Collection Time Receive d Time (Source) Location / / Volume Laterality Blood specimen 08/16/2017 7:28 AM 018 7:28 (specimen) EST AM EST Yonathan Smith MD POINT OF CARE TEST ORDERABLE S Performing Organization Address City/State/ZIP [place] [address] [facility] [address] (ABNORMAL) Differential, Automated (08/16/2017 5:08 AM EST) [facility] Method Time Signature Neutrophils % 73.9 % [facility] Neutr Abs (ANC) 5.37 1.70 - [facility] 6.10 [facility] x10(3)/[facility] LABORATORY Lymphocytes % 10.1 % [facility] Lymphocytes Abs 0.7 (L) 0.9 - 3.2 [facility] x10(3)/[facility] LABORATORY Monocytes % 10.1 % [facility] Monocyte Abs 0.7 0.3 - 0.9 [facility] x10(3)/[facility] LABORATORY Eosinophils % 5.1 % [facility] Eosinophils Abs 0.4 0.0 - 0.4 [facility] x10(3)/[facility] LABORATORY Basophils % 0.4 % [facility] Basophils Abs 0.0 0.0 - 0.1 [facility] x10(3)/[facility] LABORATORY Immature Gran [...] - 0.04 x10(3)/[facility] MAR Y [facility] LAB[facility]ORY Specimen Anatomical Collection Method Collection Time Receive d Time (Source) Location / / Volume Laterality Blood specimen 08/16/2017 5:08 AM 018 5:20 (specimen) EST AM EST Resulting Agency Comment Spec In Lab Yonathan Smith MD HEMATOLOGY ORDERABLES Performing Organization Address City/State/ZIP [place] [address] [facility] [address] (ABNORMAL) Hemogram (08/16/2017 5:08 AM EST) Analysis Performed At Patho logist Time Signature WBC 7.3 4.0 - 9.5 [facility] x10(3)/[facility] LABORATORY RBC 3.36 (L) 4.58 - [facility] 5.54 [facility] x10(6)/[facility] LABORATORY Hemoglobin 9.7 (L) 13.7 - [facility] 16.5 gm/dL [facility] Hematocrit 30.3 (L) 40.5 - [facility] 48.5 % [facility] MCV 90.2 82.9 - [facility] 93.1 [facility] LABORATORY MCH 28.9 27.5 - [facility] 32.1 pg [facility] MCHC 32.0 32.0 - [facility] 35.7 gm/dL [facility] Platelets 282 145 - 357 [facility] x10(3)/[facility] LABORATORY RDWSD 53.9 (H) 36.0 - [facility] 45.0 [facility] LABORATORY RDWCV 16.5 (H) 11.4 - [facility] 13.8 % [facility] MPV 9.0 7.6 - 12.9 [facility] LABORATORY nRBC % Auto 0.0 % [facility] nRBC Abs Auto 0.000 0.000 - [facility] 0.000 [facility] x10(3)/[facility] LABORATORY Specimen Anatomical Collection Method Collection Time Receive d Time (Source) Location / / Volume Laterality Blood specimen 08/16/2017 5:08 AM 018 5:20 (specimen) EST AM EST Resulting Agency Comment Spec In Lab Yonathan Smith MD HEMATOLOGY ORDERABLES Performing Organization Address City/State/ZIP [place] [address] (ABNORMAL) Basic Metabolic Panel (non-fasting) (08/16/2017 5:08 AM EST) P athologist Signature Glucose Lvl 141 65 - 199 [facility] mg/dL [facility] Comment: [...] or in patients with acute kidney failure. [email or web address] http://[email or web address] Specimen Anatomical Collection Method Collection Time Receive d Time (Source) Location / / Volume Laterality Blood specimen 08/16/2017 5:08 AM 018 5:20 (specimen) EST AM EST Resulting Agency Comment Spec In Lab Yonathan Smith MD CHEMISTRY ORDERABLES Performing Organization Address City/State/ZIP [place] [address] (ABNORMAL) Prothrombin Time (08/16/2017 [...] [facility]/ZIP Code Phon e Number [address] POCT Glucose (08/16/2017 4:09 AM EST) athologist Signature POC Glucose 147 65 - 199 [facility] RYAN mg/dL [facility] Comment: Supplemental [...] [facility]/ZIP Code Phon e Number [address] POCT Glucose (08/15/2017 11:56 PM EST) athologist Signature POC Glucose 176 65 - 199 [place] [facility] mg/dL [facility] Comment: Supplemental [...] [facility]/ZIP Code Phon e Number [address] POCT Glucose (08/15/2017 8:05 PM EST) athologist Signature POC Glucose 136 65 - 199 [facility] mg/dL [facility] Comment: Supplemental [...] Address City/State/[place] [address] (ABNORMAL) POCT Glucose (08/15/2017 4:50 PM EST) athologist Signature POC Glucose 232 (H) 65 - 199 [facility] [place] mg/dL [facility] Comment: Supplemental [...] Address City/State/[place] [address] POCT Glucose (08/15/2017 12:04 PM EST) athologist Signature POC Glucose 135 65 - 199 [facility] mg/dL [facility] Comment: Supplemental [...] Address City/State/[place] [address] POCT Glucose (08/15/2017 7:36 AM EST) athologist Signature POC Glucose 124 65 - 199 [facility] mg/dL [facility] LAB[facility]ORY Comment: Supplemental ranges: <140 mg/dL before meals <180 mg/dL all other times of the day Specimen Anatomical Collection Method Collection Time Receive d Time (Source) Location / / Volume Laterality Blood specimen 08/15/2017 7:36 AM 018 7:36 (specimen) EST AM EST Yonathan Smith MD POINT OF CARE TEST ORDERABLE S Performing Organization Address City/State/[place] [address] (ABNORMAL) Differential, Automated (08/15/2017 6:22 AM EST) [facility] Method Time Signature Neutrophils % 76.1 % [facility] LABORATORY Neutr Abs (ANC) 6.62 (H) 1.70 - [facility] 6.10 [facility] x10(3)/[facility] LABORATORY Lymphocytes % 9.3 % [facility] LABORATORY Lymphocytes Abs 0.8 (L) 0.9 - 3.2 [facility] x10(3)/[facility] LABORATORY Monocytes % 9.4 % [facility] LABORATORY Monocyte Abs 0.8 0.3 - 0.9 [facility] x10(3)/[facility] LABORATORY Eosinophils % 4.0 % [facility] LABORATORY Eosinophils Abs 0.4 0.0 - 0.4 [facility] x10(3)/[facility] LABORATORY Basophils % 0.6 % [facility] LABORATORY Basophils Abs 0.0 0.0 - 0.1 [facility] x10(3)/[facility] LABORATORY Immature Gran % 0.60 [...] [facility]/ZIP Code Phon e Number [address] (ABNORMAL) Hemogram (08/15/2017 6:22 AM EST) Analysis Performed At Patho logist Time Signature WBC 8.7 4.0 - 9.5 [facility](3[facility] LABORATORY RBC 3.21 (L) 4.58 - [facility] 5.54 [facility] x10(6)/[facility] LABORATORY Hemoglobin 9.1 (L) 13.7 - [facility] gm/dL [facility] LAB[facility] Hematocrit 29.0 (L) 40.5 - [facility] 48.5 % [facility] MCV 90.3 82.9 - [facility]1 [facility] LABORATORY MCH 28.3 27.5 - [facility] R[facility] 32.1 pg [facility] LABORATORY MCHC 31.4 (L) 32.0 - [facility] 35.7 gm/dL [facility] LAB[facility] Platelets 254 145 - 357 [facility] x10(3)/[facility] LABORATORY RDWSD 53.9 (H) 36.0 - [facility] RYAN 45.0 [facility] LABORATORY RDWCV 16.3 (H) 11.4 - [facility] R[facility]AN 13.8 % [facility] LABORATORY MPV 8.8 7.6 - 12.9 [facility] LABORATORY nRBC % Auto 0.0 % [facility] LABORATORY nRBC Abs Auto 0.000 0.000 - [facility] R[facility]AN 0.000 [facility] x10(3)/[facility] LABORATORY Specimen Anatomical Collection Method Collection Time Receive d Time (Source) Location / / Volume Laterality Blood specimen 08/15/2017 6:22 AM 018 6:33 (specimen) EST AM EST Resulting Agency Comment Spec In Lab Yonathan Smith MD HEMATOLOGY ORDERABLES Performing Organization Address City/State/ZIP Code Phon e Number [facility] [place] [address] (ABNORMAL) Basic Metabolic Panel (non-fasting) (08/15/2017 6:22 AM EST) P athologist Signature Glucose Lvl 118 65 - 199 [facility] mg/dL [facility] LAB[facility]ORY Comment: [...] [facility] Estimated GFR >60 >=60 [facility] LABORATORY Comment: The reported eGFR should be multiplied b y 1.2 for patients. The MDRD is not an appropriate measure o f renal function for patients with body mass extremes or in patients with acute kidney failure. [email or web address] [email or web address] Specimen Anatomical Collection Method Collection Time Receive d Time (Source) Location / / Volume Laterality Blood specimen 08/15/2017 6:22 AM 018 6:33 (specimen) EST AM EST Resulting Agency Comment Spec In Lab Yonathan Smith MD CHEMISTRY ORDERABLES Performing Organization Address City/State/ZIP Code Phon e Number [address] (ABNORMAL) Prothrombin Time (08/15/2017 [...] Address City/State/ZIP Code Phon e Number [address] POCT Glucose (08/15/2017 4:33 AM EST) athologist Signature POC Glucose 164 65 - 199 [facility]/dL [facility] Comment: Supplemental [...] Address City/State/ZIP Code Phon e Number [address] POCT Glucose (08/15/2017 12:12 AM EST) athologist Signature POC Glucose 89 65 - 199 [facility] Comment: Supplemental [...] Address City/State/ZIP Code Phon e Number [address] (ABNORMAL) POCT Glucose (08/14/2017 8:07 PM EST) athologist Signature POC Glucose 204 (H) 65 - 199 [facility] mg/dL [facility] LABORATORY Comment: Supplemental [...] [facility]/[place] [address] POCT Glucose (08/14/2017 5:11 PM EST) athologist Signature POC Glucose 174 65 - 199 [facility] mg/dL [facility] LAB[facility]ORY Comment: Supplemental [...] Address City/State/[place] [address] POCT Glucose (08/14/2017 12:10 PM EST) athologist Signature POC Glucose 141 65 - 199 [facility] mg/dL [facility] LABORATORY Comment: Supplemental [...] Address City/State/ZIP Code Phon e Number [address] POCT Glucose (08/14/2017 8:07 AM EST) P athologist Signature POC Glucose 158 65 - 199 [facility] mg/dL [facility] LAB[facility] Comment: Supplemental [...] Address City/State/ZIP Code Phon e Number [address] (ABNORMAL) Differential, Automated (08/14/2017 4:52 AM EST) Patholo gist Method Time Signature Neutrophils % 78.6 % [facility] LABORATORY Neutr Abs (ANC) 7.70 (H) 1.70 - [facility] 6.10 [facility] x10(3)/[facility] LABORATORY Lymphocytes % 7.8 % [facility] LABORATORY Lymphocytes Abs 0.8 (L) 0.9 - 3.2 [facility] x10(3)/[facility] LABORATORY Monocytes % 8.8 % [facility] LABORATORY Monocyte Abs 0.9 0.3 - 0.9 [facility] x10(3)/[facility] LABORATORY Eosinophils % 4.0 % [facility] LABORATORY Eosinophils Abs 0.4 0.0 - 0.4 [facility] x10(3)/[facility] LABORATORY Basophils % 0.5 % [facility] LABORATORY Basophils Abs 0.0 0.0 - 0.1 [facility] x10(3)/[facility] LABORATORY Immature Gran % 0.30 [...] - 0.04 x10(3)/[facility] MAR Y [facility] LABORATORY Specimen Anatomical Collection Method Collection Time Receive d Time (Source) Location / / Volume Laterality Blood specimen 08/14/2017 4:52 AM 018 5:08 (specimen) EST AM EST Resulting Agency Comment Spec In Lab Yonathan Smith MD HEMATOLOGY ORDERABLES Performing Organization Address City/State/ZIP [place] [address] (ABNORMAL) Hemogram (08/14/2017 4:52 AM EST) Analysis Performed At Patho logist Time Signature WBC 9.8 (H) 4.0 - 9.5 [facility] x10(3)/[facility] LABORATORY RBC 3.32 (L) 4.58 - [facility] 5[facility] x10(6)/[facility] LABORATORY Hemoglobin 9.5 (L) 13.7 - [facility] 16.5 gm/dL [facility] LAB[facility] Hematocrit 30.3 (L) 40.5 - [facility] 48.5 % [facility] LABORATORY MCV 91.3 82.9 - [facility] 93.1 [facility] LABORATORY MCH 28.6 27.5 - [facility] 32.1 pg [facility] LABORATORY MCHC 31.4 (L) 32.0 - [facility] 35.7 gm/dL [facility] Platelets 263 145 - 357 [facility] x10(3)/[facility] LABORATORY RDWSD 54.8 (H) 36.0 - [facility] 45.0 [facility] LABORATORY RDWCV 16.5 (H) 11.4 - [facility] 13.8 % [facility] LABORATORY MPV 9.1 7.6 - 12.9 [facility] LABORATORY nRBC % Auto 0.0 % [facility] LABORATORY nRBC Abs Auto 0.000 0.000 - [facility] 0.000 [facility] x10(3)/[facility] LABORATORY Specimen Anatomical Collection Method Collection Time Receive d Time (Source) Location / / Volume Laterality Blood specimen 08/14/2017 4:52 AM 018 5:08 (specimen) EST AM EST Resulting Agency Comment Spec In Lab Yonathan Smith MD HEMATOLOGY ORDERABLES Performing Organization Address City/[facility]/[place] [address] (ABNORMAL) Prothrombin Time (08/14/2017 [...] [facility]/[place] [address] (ABNORMAL) Basic Metabolic Panel (non-fasting) (08/14/2017 4:52 AM EST) athologist Signature Glucose Lvl 135 65 - 199 [facility] mg/dL [facility] LAB[facility] Comment: [...] or in patients with acute kidney failure. [email or web address] Specimen Anatomical Collection Method Collection Time Receive d Time (Source) Location / / Volume Laterality Blood specimen 08/14/2017 4:52 AM 018 5:08 (specimen) EST AM EST Resulting Agency Comment Spec In Lab Yonathan Smith MD CHEMISTRY ORDERABLES Performing Organization Address City/[facility]/ZIP Code Phon e Number [address] POCT Glucose (08/14/2017 3:56 AM EST) P athologist Signature POC Glucose 135 65 - 199 [facility] mg/dL [facility] LAB[facility] Comment: Supplemental [...] [facility]/[place] [address] POCT Glucose (08/13/2017 11:13 PM EST) athologist Signature POC Glucose 118 65 - 199 [facility] mg/dL [facility] LAB[facility] Comment: Supplemental [...] Address City/State/[place] [address] (ABNORMAL) POCT Glucose (08/13/2017 8:08 PM EST) athologist Signature POC Glucose 204 (H) 65 - 199 [facility] Comment: Supplemental [...] Address City/State/[place] [address] POCT Glucose (08/13/2017 4:02 PM EST) athologist Signature POC Glucose 145 65 - 199 [facility] mg/dL [facility] LAB[facility] Comment: Supplemental [...] Address City/State/[place] [address] POCT Glucose (08/13/2017 11:31 AM EST) athologist Signature POC Glucose 179 65 - 199 [facility]dL [facility] Comment: Supplemental [...] [facility]/[place] [address] (ABNORMAL) POCT Glucose (08/13/2017 10:16 AM EST) athologist Signature POC Glucose 211 (H) 65 - 199 [facility]dL [facility] Comment: Supplemental [...] [facility]/[place] [address] JULIAN, legs, multiple levels (08/13/2017 7:42 AM EST) Component Value Ref Test [facility] Time Signature VB Text Department: Vascular Surgery Lab VASCUBASE Report Patient: [id number] (GREGORY HOANG) CPT: 37422 ICD10: I99.8 Referring Physician: YONATHAN SMITH ?? Indications: s/p R 1,2,3 toe amps with red left foot, need n ew baseline Diabetes mellitus: yes ICD10 Diagnosis Code: I99.8 Findings: Right ?Pressure (mm Hg) ?? JULIAN ??Waveform ?TBI ?? Brachial Artery ?138 ? Dorsalis Pedis (Ankle) Arter y ?132 ? 0.94 ??Teller- Biphasic ? Posterior Tibial (Ankle) Art anila ??154 ? 1.10 ??Teller-Biphasic ? Fourth Toe ? 67 ? 0.48 [facility] mg/dL [facility] Comment: Supplemental ranges: <140 mg/dL before meals <180 mg/dL all other times of the day Specimen Anatomical Collection Method Collection Time Receive d Time (Source) Location / / Volume Laterality Blood specimen 08/13/2017 7:33 AM 018 7:33 (specimen) EST AM EST Yonathan Smith MD POINT OF CARE TEST ORDERABLE S Performing Organization Address City/State/ZIP [place] [address] (ABNORMAL) Differential, Automated (08/13/2017 5:33 AM EST) Patholo gist Method Time Signature Neutrophils % 77.8 % [facility] LABORATORY Neutr Abs (ANC) 7.83 (H) 1.70 - [facility] 6.10 [facility] x10(3)/[facility] LABORATORY Lymphocytes % 8.4 % [facility] LABORATORY Lymphocytes Abs 0.8 (L) 0.9 - 3.2 [facility] x10(3)/[facility] LABORATORY Monocytes % 8.3 % [facility] LABORATORY Monocyte Abs 0.8 0.3 - 0.9 [facility] x10(3)/[facility] LABORATORY Eosinophils % 4.6 % [facility] LABORATORY Eosinophils Abs 0.5 (H) 0.0 - 0.4 [facility] x10(3)/[facility] LABORATORY Basophils % 0.5 % [facility] LABORATORY Basophils Abs 0.0 0.0 - 0.1 [facility] x10(3)/[facility] LABORATORY Immature Gran % 0.40 [...] Melisa Gran Abs 0.04 0.00 - 0.04 x10(3)/[facility] MAR Y [facility] LABORATORY Specimen Anatomical Collection Method Collection Time Receive d Time (Source) Location / / Volume Laterality Blood specimen 08/13/2017 5:33 AM 018 6:04 (specimen) EST AM EST Resulting Agency Comment Spec In Lab Yonathan Smith MD HEMATOLOGY ORDERABLES Performing Organization Address City/State/ZIP Code Phon e Number [place] [id number] (ABNORMAL) Hemogram (08/13/2017 5:33 AM EST) Analysis Performed At Patho logist Time Signature WBC 10.1 (H) 4.0 - 9.5 [facility] x10(3)/[facility] LABORATORY RBC 3.21 (L) 4.58 - [facility] 5.54 [facility] x10(6)/[facility] LABORATORY Hemoglobin 9.2 (L) 13.7 - [facility] 16[facility] gm/dL [facility] LABORATORY Hematocrit 29.6 (L) 40.5 - [facility] 48.5 % [facility] LABORATORY MCV 92.2 82.9 - [facility] 93.1 [facility] LABORATORY MCH 28.7 27.5 - [facility] 32.1 pg [facility] LABORATORY MCHC 31.1 (L) 32.0 - [facility] 35.[facility] gm/dL [facility] LABOR[facility] Platelets 263 145 - 357 [facility] x10(3)/[facility] LABORATORY RDWSD 54.8 (H) 36.0 - [facility] 45.0 [facility] LABORATORY RDWCV 16.4 (H) 11.4 - [facility] 13.8 % [facility] LABORATORY MPV 9.2 7.6 - 12.9 [facility] LABORATORY nRBC % Auto 0.0 % [facility] LABORATORY nRBC Abs Auto 0.000 0.000 - [facility] 0.000 [facility] x10(3)/[facility] LABORATORY Specimen Anatomical Collection Method Collection Time Receive d Time (Source) Location / / Volume Laterality Blood specimen 08/13/2017 5:33 AM 018 6:04 (specimen) EST AM EST Resulting Agency Comment Spec In Lab Yonathan Smith MD HEMATOLOGY ORDERABLES Performing Organization Address City/State/ZIP [place] [address] (ABNORMAL) Prothrombin Time (08/13/2017 [...] Organization Address City/State/ZIP [place] [address] (ABNORMAL) Basic Metabolic Panel (non-fasting) (08/13/2017 5:33 AM EST) P athologist Signature Glucose Lvl 126 65 - 199 [facility] mg/dL [facility]ORY Comment: [...] [facility] Estimated GFR >60 >=60 [facility] Comment: The reported eGFR should be multiplied b y 1.2 for patients. The MDRD is not an appropriate measure o f renal function for patients with body mass extremes or in patients with acute kidney failure. [email or web address] [email or web address] Specimen Anatomical Collection Method Collection Time Receive d Time (Source) Location / / Volume Laterality Blood specimen 08/13/2017 5:33 AM 018 6:04 (specimen) EST AM EST Resulting Agency Comment Spec In Lab Yonathan Smith MD CHEMISTRY ORDERABLES Performing Organization Address City/State/ZIP Code Phon e Number [address] POCT Glucose (08/13/2017 4:29 AM EST) athologist Signature POC Glucose 111 65 - 199 [facility] mg/dL [facility] LAB[facility]ORY Comment: Supplemental [...] [facility]/[place] [address] POCT Glucose (08/12/2017 11:28 PM EST) athologist Signature POC Glucose 164 65 - 199 [facility] mg/dL [facility] LABOR[facility]ORY Comment: Supplemental [...] [facility]/ZIP Code Phon e Number [address] (ABNORMAL) POCT Glucose (08/12/2017 7:40 PM EST) athologist Signature POC Glucose 209 (H) 65 - 199 [facility] mg/dL [facility] LABORATORY Comment: Supplemental [...] Address City/State/ZIP Code Phon e Number [address] POCT Glucose (08/12/2017 4:24 PM EST) athologist Signature POC Glucose 161 65 - 199 [facility] mg/dL [facility] LABORATORY Comment: Supplemental [...] Address City/State/ZIP Code Phon e Number [address] POCT Glucose (08/12/2017 12:00 PM EST) athologist Signature POC Glucose 167 65 - 199 [facility] mg/dL [facility] LABORATORY Comment: Supplemental [...] Address City/State/ZIP Code Phon e Number [address] POCT Glucose (08/12/2017 7:25 AM EST) athologist Signature POC Glucose 152 65 - 199 [facility] mg/dL [facility] LABORATORY Comment: Supplemental ranges: <140 mg/dL before meals <180 mg/dL all other times of the day Specimen Anatomical Collection Method Collection Time Receive d Time (Source) Location / / Volume Laterality Blood specimen 08/12/2017 7:25 AM 018 7:25 (specimen) EST AM EST Yonathan Smith MD POINT OF CARE TEST ORDERABLE S Performing Organization Address City/State/ZIP [place] [address] (ABNORMAL) Differential, Automated (08/12/2017 6:29 AM EST) [facility] Method Time Signature Neutrophils % 78.7 % [facility] LABORATORY Neutr Abs (ANC) 7.94 (H) 1.70 - [facility] 6.10 [facility] x10(3)/[facility] LABORATORY Lymphocytes % 8.8 % [facility] LABORATORY Lymphocytes Abs 0.9 0.9 - 3.2 [facility] x10(3)/[facility] LABORATORY Monocytes % 7.8 % [facility] LABORATORY Monocyte Abs 0.8 0.3 - 0.9 [facility] x10(3)/[facility] LABORATORY Eosinophils % 3.9 % [facility] LABORATORY Eosinophils Abs 0.4 0.0 - 0.4 [facility] x10(3)/[facility] LABORATORY Basophils % 0.3 % [facility] LABORATORY Basophils Abs 0.0 0.0 - 0.1 [facility] x10(3)/[facility] LABORATORY Immature Gran % 0.50 [...] Address City/State/ZIP Code Phon e Number [address] (ABNORMAL) Hemogram (08/12/2017 6:29 AM EST) Analysis Performed At Patho logist Time Signature WBC 10.1 (H) 4.0 - 9.5 [facility] x[facility](3[facility] LABORATORY RBC 3.02 (L) 4.58 - [facility] 5.54 [facility] x10(6)/[facility] LABORATORY Hemoglobin 8.7 (L) 13.7 - [facility] 16.5 gm/dL [facility] LABORATORY Hematocrit 28.1 (L) 40.5 - [facility] 48.5 % [facility] LABORATORY MCV 93.0 82.9 - [facility] 93.1 [facility] LABORATORY MCH 28.8 27.5 - [facility] 32.1 pg [facility] LABORATORY MCHC 31.0 (L) 32.0 - [facility] 35.7 gm/dL [facility] LABORATORY Platelets 223 145 - 357 [facility] x10(3)/[facility] LABORATORY RDWSD 56.1 (H) 36.0 - [facility] 45.0 [facility] LABORATORY RDWCV 16.4 (H) 11.4 - [facility] 13.8 % [facility] LABORATORY MPV 9.0 7.6 - 12.9 [facility] LABORATORY nRBC % Auto 0.0 % [facility] LABORATORY nRBC Abs Auto 0.000 0.000 - [facility] 0.000 [facility] x10(3)/[facility] LABORATORY Specimen Anatomical Collection Method Collection Time Receive d Time (Source) Location / / Volume Laterality Blood specimen 08/12/2017 6:29 AM 018 6:38 (specimen) EST AM EST Resulting Agency Comment Spec In Lab Yonathan Smith MD HEMATOLOGY ORDERABLES Performing Organization Address City/State/[place] [address] (ABNORMAL) Prothrombin Time (08/12/2017 [...] Address City/State/[place] [address] (ABNORMAL) Basic Metabolic Panel (non-fasting) (08/12/2017 6:29 AM EST) athologist Signature Glucose Lvl 151 65 - 199 [facility] mg/dL [facility] LAB[facility]ATORY Comment: [...] [facility] Estimated GFR >60 >=60 [facility] LAB[facility] Comment: The reported eGFR should be multiplied b y 1.2 for patients. The MDRD is not an appropriate measure o f renal function for patients with body mass extremes or in patients with acute kidney failure. [email or web address] [email or web address] [email or web address] Specimen Anatomical Collection Method Collection Time Receive d Time (Source) Location / / Volume Laterality Blood specimen 08/12/2017 6:29 AM 018 6:38 (specimen) EST AM EST Resulting Agency Comment Spec In Lab Yonathan Smith MD CHEMISTRY ORDERABLES Performing Organization Address City/[facility]/ZIP Code Phon e Number [address] POCT Glucose (08/12/2017 4:08 AM EST) athologist Signature POC Glucose 181 65 - 199 [facility] LAB[facility] Comment: Supplemental [...] Address City/State/[place] [address] (ABNORMAL) POCT Glucose (08/12/2017 12:17 AM EST) P athologist Signature POC Glucose 221 (H) 65 - 199 [facility]dL [facility] LAB[facility] Comment: Supplemental [...] [facility]/ZIP Code Phon e Number [address] (ABNORMAL) POCT Glucose (08/11/2017 8:52 PM EST) athologist Signature POC Glucose 221 (H) 65 - 199 [facility] mg/dL [facility] LAB[facility]ORY Comment: Supplemental [...] [facility]/[place] [address] POCT Glucose (08/11/2017 5:59 PM EST) athologist Signature POC Glucose 169 65 - 199 [facility] mg/dL [facility] LABORATORY Comment: Supplemental [...] [facility]/[place] [address] (ABNORMAL) POCT Glucose (08/11/2017 4:08 PM EST) athologist Signature POC Glucose 240 (H) 65 - 199 [facility] mg/dL [facility] LABORATORY Comment: Supplemental [...] Address City/State/ZIP Code Phon e Number [address] POCT Glucose (08/11/2017 12:04 PM EST) athologist Signature POC Glucose 182 65 - 199 [facility] LAB[facility]ORY Comment: Supplemental [...] Address City/State/ZIP Code Phon e Number [address] POCT Glucose (08/11/2017 7:31 AM EST) athologist Signature POC Glucose 156 65 - 199 [facility] LAB[facility]ORY Comment: Supplemental [...] Address City/State/ZIP Code Phon e Number [address] (ABNORMAL) Differential, Automated (08/11/2017 6:16 AM EST) [facility] gist Method Time Signature Neutrophils % 83.7 % [facility] LABORATORY Neutr Abs (ANC) 10.76 (H) 1.70 - [facility] 6.10 [facility] x10(3)/[facility] LABORATORY Lymphocytes % 6.0 % [facility] LABORATORY Lymphocytes Abs 0.8 (L) 0.9 - 3.2 [facility] x10(3)/[facility] LABORATORY Monocytes % 7.5 % [facility] LABORATORY Monocyte Abs 1.0 (H) 0.3 - 0.9 [facility] x10(3)/[facility] LABORATORY Eosinophils % 2.0 % [facility] LABORATORY Eosinophils Abs 0.3 0.0 - 0.4 [facility] x10(3)/[facility] LABORATORY Basophils % 0.3 % [facility] LABORATORY Basophils Abs 0.0 0.0 - 0.1 [facility] x10(3)/[facility] LABORATORY Immature Gran % 0.50 [...] Gran Abs 0.06 (H) 0.00 - 0.04 x10(3)/[facility] LABORATORY Specimen Anatomical Collection Method Collection Time Receive d Time (Source) Location / / Volume Laterality Blood specimen 08/11/2017 6:16 AM 018 6:24 (specimen) EST AM EST Resulting Agency Comment Spec In Lab Yonathan Smith MD HEMATOLOGY ORDERABLES Performing Organization Address City/State/ZIP [place] [address] (ABNORMAL) Hemogram (08/11/2017 6:16 AM EST) Analysis Performed At Patho logist Time Signature WBC 12.9 (H) 4.0 - 9.5 [facility] x10(3)/[facility] LABORATORY RBC 3.28 (L) 4.58 - [facility] 5.54 [facility] x10(6)/[facility] LABORATORY Hemoglobin 9.5 (L) 13.7 - [facility] 16.5 gm/dL [facility] LABORATORY Hematocrit 29.8 (L) 40.5 - [facility] 48.[facility] % [facility] LABORATORY MCV 90.9 82.9 - [facility] 93.1 [facility] LABORATORY MCH 29.0 27.5 - [facility] 32.1 pg [facility] LABORATORY MCHC 31.9 (L) 32.0 - [facility] 35.7 gm/dL [facility] LABORATORY Platelets 236 145 - 357 [facility] x10(3)/[facility] LABORATORY RDWSD 53.5 (H) 36.0 - [facility] 45.0 [facility] LABORATORY RDWCV 16.3 (H) 11.4 - [facility] 13.8 % [facility] LABORATORY MPV 8.8 7.6 - 12.9 [facility] LABORATORY nRBC % Auto 0.0 % [facility] LABORATORY nRBC Abs Auto 0.000 0.000 - [facility] 0.000 [facility] x10(3)/[facility] LABORATORY Specimen Anatomical Collection Method Collection Time Receive d Time (Source) Location / / Volume Laterality Blood specimen 08/11/2017 6:16 AM 018 6:24 (specimen) EST AM EST Resulting Agency Comment Spec In Lab Yonathan Smith MD HEMATOLOGY ORDERABLES Performing Organization Address City/State/ZIP [place] [address] (ABNORMAL) Prothrombin Time (08/11/2017 [...] [facility]/[place] [address] Basic Metabolic Panel (non-fasting) (08/11/2017 6:16 AM EST) athologist Signature Glucose Lvl 139 65 - 199 [facility] mg/dL [facility] LABORATORY Comment: [...] [facility] Estimated GFR >60 >=60 [facility] LABORATORY Comment: The reported eGFR should be multiplied b y 1.2 for patients. The MDRD is not an appropriate measure o f renal function for patients with body mass extremes or in patients with acute kidney failure. [email or web address]/DHnkdep [email or web address].Trovali/DHMCnkf Specimen Anatomical Collection Method Collection Time Receive d Time (Source) Location / / Volume Laterality Blood specimen 08/11/2017 6:16 AM 018 6:24 (specimen) EST AM EST Resulting Agency Comment Spec In Lab Yonathan Smith MD CHEMISTRY ORDERABLES Performing Organization Address City/[facility]/ZIP Code Phon e Number [address] POCT Glucose (08/11/2017 4:07 AM EST) athologist Signature POC Glucose 162 65 - 199 [facility] mg/dL [facility] LABORATORY Comment: Supplemental [...] Address City/State/ZIP Code Phon e Number [address] POCT Glucose (08/10/2017 11:59 PM EST) athologist Signature POC Glucose 166 65 - 199 [facility] mg/dL [facility] LABORATORY Comment: Supplemental [...] Address City/State/[place] [address] POCT Glucose (08/10/2017 8:12 PM EST) athologist Signature POC Glucose 156 65 - 199 [facility] mg/dL [facility] LABORATORY Comment: Supplemental [...] Address City/State/[place] [address] (ABNORMAL) POCT Glucose (08/10/2017 4:42 PM EST) P athologist Signature POC Glucose 211 (H) 65 - 199 [facility] mg/dL [facility] LABORATORY Comment: Supplemental [...] City/State/ZIP Code Phon e Number [place] [id number]OSP[address] LABORATORY Drive (ABNORMAL) Differential, Automated (08/10/2017 2:30 PM EST) Patholo gist Method Time Signature Neutrophils % 87.6 % [facility] LABORATORY Neutr Abs (ANC) 9.90 (H) 1.70 - [facility] 6.10 [facility] x10(3)/[facility] LABORATORY Lymphocytes % 4.3 % [facility] LABORATORY Lymphocytes Abs 0.5 (L) 0.9 - 3.2 [facility] x10(3)/[facility] LABORATORY Monocytes % 6.0 % [facility] LABORATORY Monocyte Abs 0.7 0.3 - 0.9 [facility] x10(3)/[facility] LABORATORY Eosinophils % 1.1 % [facility] LABORATORY Eosinophils Abs 0.1 0.0 - 0.4 [facility] x10(3)/[facility] LABORATORY Basophils % 0.4 % [facility] LABORATORY Basophils Abs 0.0 0.0 - 0.1 [facility] x10(3)/[facility] LABORATORY Immature Gran % 0.60 [...] Gran Abs 0.07 (H) 0.00 - 0.04 x10(3)/[facility] LABORATORY Specimen Anatomical Collection Method Collection Time Receive d Time (Source) Location / / Volume Laterality Blood specimen 08/10/2017 2:30 PM 018 2:48 (specimen) EST PM EST Resulting Agency Comment Spec In Lab Yonathan Smith MD HEMATOLOGY ORDERABLES Performing Organization Address City/State/ZIP [place] [address] (ABNORMAL) Hemogram (08/10/2017 2:30 PM EST) Analysis Performed At Patho logist Time Signature WBC 11.3 (H) 4.0 - 9.5 [facility] x10(3)/[facility] LABORATORY RBC 3.13 (L) 4.58 - [facility] 5.54 [facility] x10(6)/[facility] LABORATORY Hemoglobin 8.9 (L) 13.7 - [facility] 16.5 gm/dL [facility] LABORATORY Hematocrit 28.4 (L) 40.5 - [facility] 48.5 % [facility] LABORATORY MCV 90.7 82.9 - [facility] 93.1 [facility] LABORATORY MCH 28.4 27.5 - [facility] 32.1 pg [facility] LABORATORY MCHC 31.3 (L) 32.0 - [facility] 35.[facility] gm/dL [facility] LABORATORY Platelets 213 145 - 357 [facility] x10(3)/[facility] LABORATORY RDWSD 53.7 (H) 36.0 - [facility] 45.0 [facility] LABORATORY RDWCV 16.4 (H) 11.4 - [facility] 13.8 % [facility] LABORATORY MPV 8.9 7.6 - 12.9 [facility] LABORATORY nRBC % Auto 0.0 % [facility] LABORATORY nRBC Abs Auto 0.000 0.000 - [facility] 0.000 [facility] x10(3)/[facility] LABORATORY Specimen Anatomical Collection Method Collection Time Receive d Time (Source) Location / / Volume Laterality Blood specimen 08/10/2017 2:30 PM 018 2:48 (specimen) EST PM EST Resulting Agency Comment Spec In Lab Yonathan Smith MD HEMATOLOGY ORDERABLES Performing Organization Address City/State/ZIP Code Phon e Number [address] (ABNORMAL) POCT Glucose (08/10/2017 1:50 PM EST) athologist Signature POC Glucose 243 (H) 65 - 199 [facility] LABORATORY Comment: Supplemental [...] [facility]/ZIP Code Phon e Number [address] POCT Glucose (08/10/2017 11:21 AM EST) athologist Signature POC Glucose 156 65 - 199 [facility] LABORATORY Comment: Supplemental [...] [facility]/[place] [address] (ABNORMAL) Differential, Automated (08/10/2017 10:28 AM EST) [facility] Time Signature Neutrophils % 85.3 % [facility] LABORATORY Neutr Abs (ANC) 9.43 (H) 1.70 - [facility] 6.10 [facility] x10(3)/[facility] LABORATORY Lymphocytes % 5.5 % [facility] LABORATORY Lymphocytes Abs 0.6 (L) 0.9 - 3.2 [facility] x10(3)/[facility] LABORATORY Monocytes % 5.9 % [facility] LABORATORY Monocyte Abs 0.6 0.3 - 0.9 [facility] x10(3)/[facility] LABORATORY Eosinophils % 2.1 % [facility] LABORATORY Eosinophils Abs 0.2 0.0 - 0.4 [facility] x10(3)/[facility] LABORATORY Basophils % 0.4 % [facility] LABORATORY Basophils Abs 0.0 0.0 - 0.1 [facility] x10(3)/[facility] LABORATORY Immature Gran % 0.80 [...] Organization Address City/State/ZIP [place] [address] (ABNORMAL) Hemogram (08/10/2017 10:28 AM EST) Analysis Performed At Patho logist Time Signature WBC 11.0 (H) 4.0 - 9.5 [facility] x10(3)/[facility] LABORATORY RBC 3.02 (L) 4.58 - [facility] 5.54 [facility] x10(6)/[facility] LABORATORY Hemoglobin 8.8 (L) 13.7 - [facility] 16.5 gm/dL [facility] LABORATORY Hematocrit 28.1 (L) 40.5 - [facility] 48.5 % [facility] LABORATORY MCV 93.0 82.9 - [facility] 93.1 [facility] MCH 29.1 27.5 - [facility] 32.1 pg [facility] MCHC 31.3 (L) 32.0 - [facility] 35.7 gm/dL [facility] Platelets 207 145 - 357 [facility] x10(3)/[facility] LABORATORY RDWSD 55.3 (H) 36.0 - [facility] 45.0 [facility] RDWCV 16.4 (H) 11.4 - [facility] 13.8 % [facility] MPV 9.0 7.6 - 12.9 [facility] LABORATORY nRBC % Auto 0.0 % [facility] nRBC Abs Auto 0.000 0.000 - [facility] 0.000 [facility] x10(3)/[facility] LABORATORY Specimen Anatomical Collection Method Collection Time Receive d Time (Source) Location / / Volume Laterality Blood specimen 08/10/2017 10:28 8 (specimen) AM EST 10:35 AM EST Resulting Agency Comment Spec In Lab Yonathan Smith MD HEMATOLOGY ORDERABLES Performing Organization Address City/State/ZIP [place] [address] VS Angiogram/intervention (vascular) (08/10/2017 [...] 2.5x80 5. Completion RLE angiogram 6. L STEEPLECHASE JOCKEY angiogram 7. 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 L STEEPLECHASE JOCKEY access in the distal L STEEPLECHASE JOCKEY. - Closure device: Mynx Technical Procedure: ?The [...] for a 45cm 5F Destination. V18 and [place] a nd QuickCross catheters were used to [...] bifurcation. Access appeared in the distal R STEEPLECHASE JOCKEY. Closure and sheath removal was performed with [...] 2.5x80 5. Completion RLE angiogram 6. L STEEPLECHASE JOCKEY angiogram 7. 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 L STEEPLECHASE JOCKEY access in the distal L STEEPLECHASE JOCKEY. - Closure device: Mynx Technical Procedure: The [...] for a 45cm 5F Destination. V18 and [place] a nd QuickCross catheters were used to [...] bifurcation. Access appeared in the distal R STEEPLECHASE JOCKEY. Closure and sheath removal was performed with [...] 5:50 AM EST) [facility] gist Method Time Signature Neutrophils % 80.1 % [facility] LABORATORY Neutr Abs (ANC) 9.01 (H) 1.70 - [facility] 6.10 [facility] x10(3)/[facility] LABORATORY Lymphocytes % 8.8 % [facility] LABORATORY Lymphocytes Abs 1.0 0.9 - 3.2 [facility] x10(3)/[facility] LABORATORY Monocytes % 8.3 % [facility] LABORATORY Monocyte Abs 0.9 0.3 - 0.9 [facility] x10(3)/[facility] LABORATORY Eosinophils % 2.0 % [facility] LABORATORY Eosinophils Abs 0.2 0.0 - 0.4 [facility] x10(3)/[facility] LABORATORY Basophils % 0.4 % [facility] LABORATORY Basophils Abs 0.0 0.0 - 0.1 [facility] x10(3)/[facility] LABORATORY Immature Gran % 0.40 [...] Organization Address City/State/ZIP [place] [address] (ABNORMAL) Hemogram (08/10/2017 5:50 AM EST) Analysis Performed At Patho logist Time Signature WBC 11.3 (H) 4.0 - 9.5 [facility] x10(3[facility] LABORATORY RBC 3.15 (L) 4.58 - [facility] 5.54 [facility] x10(6)/[facility] LABORATORY Hemoglobin 8.9 (L) 13.7 - [facility] 16.5 gm/dL [facility] LABORATORY Hematocrit 29.0 (L) 40.5 - [facility] 48.5 % [facility] LABORATORY MCV 92.1 82.9 - [facility] 93.1 [facility] LABORATORY MCH 28.3 27.5 - [facility] 32.1 pg [facility] LABORATORY MCHC 30.7 (L) 32.0 - [facility] 35.7 gm/dL [facility] LABORATORY Platelets 231 145 - 357 [facility] x10(3)/[facility] LABORATORY RDWSD 53.9 (H) 36.0 - [facility] 45.0 [facility] LABORATORY RDWCV 16.2 (H) 11.4 - [facility] 13.8 % [facility] LABORATORY MPV 8.7 7.6 - 12.9 [facility] LABORATORY nRBC % Auto 0.0 % [facility] LABORATORY nRBC Abs Auto 0.000 0.000 - [facility] 0.000 [facility] x10(3)/[facility] LABORATORY Specimen Anatomical Collection Method Collection Time Receive d Time (Source) Location / / Volume Laterality Blood specimen 08/10/2017 5:50 AM 018 5:59 (specimen) EST AM EST Resulting Agency Comment Spec In Lab Yonathan Smith MD HEMATOLOGY ORDERABLES Performing Organization Address City/State/ZIP [place] [address] (ABNORMAL) Basic Metabolic Panel (non-fasting) (08/10/2017 5:50 AM EST) athologist Signature Glucose Lvl 135 65 - 199 [facility] mg/dL [facility] LABORATORY Comment: [...] [facility] Estimated GFR >60 >=60 [facility] LABORATORY Comment: The reported eGFR should be multiplied b y 1.2 for patients. The MDRD is not an appropriate measure o f renal function for patients with body mass extremes or in patients with acute kidney failure. http://[employer] Embassy/DHnkdep http://[employer]/DHMCnkf Specimen Anatomical Collection Method Collection Time Receive d Time (Source) Location / / Volume Laterality Blood specimen 08/10/2017 5:50 AM 018 5:59 (specimen) EST AM EST Resulting Agency Comment Spec In Lab Yonathan Smith MD CHEMISTRY ORDERABLES Performing Organization Address City/[facility]/[place] [address] (ABNORMAL) Prothrombin Time (08/10/2017 [...] [facility]/[place] [address] (ABNORMAL) POCT Glucose (08/10/2017 4:01 AM EST) athologist Signature POC Glucose 206 (H) 65 - 199 [facility] mg/dL [facility] LABORATORY Comment: Supplemental [...] Medical Center/ZIP Code [place] [address] POCT Glucose (08/10/2017 2:01 AM EST) athologist Signature POC Glucose 188 65 - 199 [facility] mg/dL [facility] LABORATORY Comment: Supplemental [...] Address City/State/[place] [address] (ABNORMAL) POCT Glucose (08/09/2017 11:42 PM EST) athologist Signature POC Glucose 283 (H) 65 - 199 [facility] LAB[facility]ORY Comment: Supplemental [...] Address City/State/[place] [address] POCT Glucose (08/09/2017 8:55 PM EST) athologist Signature POC Glucose 182 65 - 199 [facility] mg/dL [facility] LABORATORY Comment: Supplemental [...] Address City/State/[place] [address] (ABNORMAL) APTT (08/09/2017 6:42 PM EST) athologist Signature PTT 90 (H) 25 - 35 sec [facility] LABORATORY Comment: The recommended therapeutic range for fu ll dose, unfractionated heparin at [facility] is 80 ? 114 seconds. [...] Performing Organization Address City/[facility]/ZIP [facility] Phon e Number [address] POCT Glucose (08/09/2017 4:41 PM EST) athologist Signature POC Glucose 195 65 - 199 [facility] mg/dL [facility] LABORATORY Comment: Supplemental [...] [facility]/[place] [address] POCT Glucose (08/09/2017 12:29 PM EST) athologist Signature POC Glucose 140 65 - 199 [facility]dL [facility] LAB[facility]ORY Comment: Supplemental [...] Address City/State/[place] [address] POCT Glucose (08/09/2017 9:59 AM EST) P athologist Signature POC Glucose 135 65 - 199 [facility] mg/dL [facility] LABORATORY Comment: Supplemental [...] [facility]/[place] [address] Specimen to Pathology (08/09/2017 [...] [facility]/[place] [address] Surgical Pathology Report (08/09/2017 8:40 AM EST) Component Value Ref Test Analysis Performed At Patholo gist Range Method Time Signature Surgical [id number] ? Location: [facility]; [facility]; A [facility] Report The signing pathologist has (i) examined [...] Flower Verified: ??08/13/2017 ?Pathologist Performed at: ??-[facility] Dept. of Pathology, [place], [place] CLINICAL INFORMATION Specimen Submitted: A - [...] Organization Address City/State/ZIP [place] [address] Anaerobic Culture (08/09/2017 8:30 AM EST) [facility] gist Method Time Signature Anaerobic No anaerobic [facility] Culture organisms [facility] LABORATORY Specimen Anatomical Collection Method [...] Address City/State/[place] [address] (ABNORMAL) Abscess/Wound Aspirate Culture (08/09/2017 8:30 AM EST) Patholo gist Method Time Signature Abscess/Wound Moderate mixed [facility] Aspirate bacterial [facility] Culture morphotypes [facility] normal LABORATORY cutaneous leroy (A) Gram Stain Rare White Blood Cells [facility] Few Gram Positive Cocci in pairs [facility] () [facility] LABORATORY Organism Gram Positive [facility] Cocci in pairs [facility] () [facility] LABORATORY Specimen Anatomical [...] [facility]/ZIP Code Phon e Number [address] POCT Glucose (08/09/2017 4:28 AM EST) P athologist Signature POC Glucose 128 65 - 199 [facility]/dL [facility] LABORATORY Comment: Supplemental [...] [facility]/[place] [address] ABORH Recheck Status (08/09/2017 1:10 AM EST) [facility] gist Method Time Signature ABORH Type Completed [facility] LABORATORY Specimen Anatomical Collection Method Collection Time Receive d Time (Source) Location / / Volume Laterality Blood specimen 08/09/2017 1:10 AM 018 1:35 (specimen) EST AM EST Resulting Agency Comment Spec In Lab Yonathan Smith MD BLOOD BANK ORDERABLES Performing Organization Address City/[facility]/[place] [address] Antibody screen (08/09/2017 1:10 AM EST) [facility] Method Time Signature Ab Screen Negative [facility] LABORATORY Expires at 08/12/2017 [facility] 2359 on: [facility] LABORATORY Specimen Anatomical Collection Method Collection Time Receive d Time (Source) Location / / Volume Laterality Blood specimen 08/09/2017 1:10 AM 018 1:35 (specimen) EST AM EST Resulting Agency Comment Spec In Lab Yonathan Smith MD BLOOD BANK ORDERABLES Performing Organization Address City/[facility]/[place] [address] ABO/[employer] (08/09/2017 1:10 [...] [facility]/[place] [address] (ABNORMAL) APTT (08/09/2017 1:10 AM EST) P athologist Signature PTT 86 (H) 25 - 35 sec [facility] Comment: The recommended therapeutic range for fu ll dose, unfractionated heparin at [facility] is 80 ? 114 seconds. [...] Organization Address City/State/Z[place] [address] (ABNORMAL) Differential, Automated (08/09/2017 1:10 AM EST) [facility] gist Method Time Signature Neutrophils % 76.2 % [facility]ORY Neutr Abs (ANC) 8.59 (H) 1.70 - [facility] 6.10 [facility] x10(3)/[facility] LABORATORY Lymphocytes % 11.0 % [facility] Lymphocytes Abs 1.2 0.9 - 3.2 [facility] x10(3)/[facility] LABORATORY Monocytes % 8.4 % [facility] Monocyte Abs 1.0 (H) 0.3 - 0.9 [facility] x10(3)/[facility] LABORATORY Eosinophils % 3.5 % [facility] Eosinophils Abs 0.4 0.0 - 0.4 [facility] x10(3)/[facility] LABORATORY Basophils % 0.5 % [facility] Basophils Abs 0.1 0.0 - 0.1 [facility] x10(3)/[facility] LABORATORY Immature Gran % 0.40 [...] Organization Address City/State/[place] [address] (ABNORMAL) Hemogram (08/09/2017 1:10 AM EST) Analysis Performed At Patho logist Time Signature WBC 11.3 (H) 4.0 - 9.5 [facility] x[facility](3[facility] LABORATORY RBC 3.47 (L) 4.58 - [facility]54 [facility] x10(6)/[facility] LABORATORY Hemoglobin 10.0 (L) 13.7 - [facility] 16.5 gm/dL [facility] LABORATORY Hematocrit 31.9 (L) 40.5 - [facility] 48.5 % [facility] LABORATORY MCV 91.9 82.9 - [facility] 93.1 [facility] LABORATORY MCH 28.8 27.5 - [facility] 32.1 pg [facility] LABORATORY MCHC 31.3 (L) 32.0 - [facility] 35.7 gm/dL [facility] LABORATORY Platelets 234 145 - 357 [facility] x10(3)/[facility] LABORATORY RDWSD 54.0 (H) 36.0 - [facility] 45.0 [facility] LABORATORY RDWCV 16.2 (H) 11.4 - [facility] 13.8 % [facility] LABORATORY MPV 8.7 7.6 - 12.9 [facility] LABORATORY nRBC % Auto 0.0 % [facility] nRBC Abs Auto 0.000 0.000 - [facility] 0.000 [facility] x10(3)/[facility] LABORATORY Specimen Anatomical Collection Method Collection Time Receive d Time (Source) Location / / Volume Laterality Blood specimen 08/09/2017 1:10 AM 018 1:19 (specimen) EST AM EST Resulting Agency Comment Spec In Lab Yonathan Smith MD HEMATOLOGY ORDERABLES Performing Organization Address City/State/ZIP [place] [address] (ABNORMAL) Prothrombin Time (08/09/2017 [...] City/State/ZIP Code Phon e Number [place] [id number] (ABNORMAL) Basic Metabolic Panel (non-fasting) (08/09/2017 1:10 AM EST) athologist Signature Glucose Lvl 108 65 - 199 [facility] mg/dL [facility] LABORATORY Comment: [...] or in patients with acute kidney failure. [email or web address] [email or web address] Specimen Anatomical Collection Method Collection Time Receive d Time (Source) Location / / Volume Laterality Blood specimen 08/09/2017 1:10 AM 018 1:19 (specimen) EST AM EST Resulting Agency Comment Spec In Lab Yonathan Smith MD CHEMISTRY ORDERABLES Performing Organization Address City/[facility]/ZIP Code Phon e Number [address] POCT Glucose (08/09/2017 12:05 AM EST) athologist Signature POC Glucose 128 65 - 199 [facility] LAB[facility] Comment: Supplemental [...] [facility]/[place] [address] (ABNORMAL) POCT Glucose (08/08/2017 7:36 PM EST) athologist Signature POC Glucose 215 (H) 65 - 199 [facility] mg/dL [facility] LAB[facility]ORY Comment: Supplemental [...] [facility]/[place] [address] (ABNORMAL) POCT Glucose (08/08/2017 6:23 PM EST) athologist Signature POC Glucose 216 (H) 65 - 199 [facility] mg/dL [facility] LABORATORY Comment: Supplemental ranges: <140 mg/dL before meals <180 mg/dL all other times of the day Specimen Anatomical Collection Method Collection Time Receive d Time (Source) Location / / Volume Laterality Blood specimen 08/08/2017 6:23 PM 018 6:23 (specimen) EST PM EST Yonathan Smith MD POINT OF CARE TEST ORDERABLE S Performing Organization Address [facility]/[place] [address] (ABNORMAL) APTT (08/08/2017 6:00 PM EST) athologist Signature PTT 97 (H) 25 - 35 sec [facility] Comment: The recommended therapeutic range for fu ll dose, unfractionated heparin at [facility] is 80 ? 114 seconds. [...] [facility]/[place] [address] POCT Glucose (08/08/2017 4:42 PM EST) athologist Signature POC Glucose 78 65 - 199 [facility] mg/dL [facility] LABORATORY Comment: Supplemental [...] Address City/State/[place] [address] (ABNORMAL) POCT Glucose (08/08/2017 4:01 PM EST) P athologist Signature POC Glucose 58 (L) 65 - 199 [facility] mg/dL [facility] LAB[facility]ORY Comment: Supplemental [...] Address City/State/[place] [address] POCT Glucose (08/08/2017 11:51 AM EST) P athologist Signature POC Glucose 90 65 - 199 [facility]/dL [facility] LAB[facility]ORY Comment: Supplemental [...] Address City/State/ZIP Code Phon e Number [address] (ABNORMAL) APTT (08/08/2017 10:27 AM EST) P athologist Signature PTT 64 (H) 25 - 35 sec [facility] Comment: The recommended therapeutic range for fu ll dose, unfractionated heparin at [facility] is 80 ? 114 seconds. [...] [facility]/ZIP Code Phon e Number [address] POCT Glucose (08/08/2017 8:02 AM EST) athologist Signature POC Glucose 178 65 - 199 [facility] mg/dL [facility] LAB[facility]ORY Comment: Supplemental [...] [facility]/[place] [address] (ABNORMAL) APTT (08/08/2017 4:51 AM EST) athologist Signature PTT >160 25 - 35 [facility] (Critical) sec [facility] LAB[facility]ORY Comment: Called by: HOWARD, Read back by: Melba Jaramillo, Date/Time:08/08/17 05:43. The recommended therapeutic range for fu ll dose, unfractionated heparin at [facility] is 80 ? 114 seconds. [...] Address City/State/ZIP [place] [address] (ABNORMAL) Differential, Automated (08/08/2017 4:51 AM EST) [facility] Method Time Signature Neutrophils % 77.9 % [facility] Neutr Abs (ANC) 8.17 (H) 1.70 - [facility] 6.10 [facility] x10(3)/[facility] LABORATORY Lymphocytes % 10.3 % [facility] LABORATORY Lymphocytes Abs 1.1 0.9 - 3.2 [facility] x10(3)/[facility] LABORATORY Monocytes % 7.0 % [facility] LABORATORY Monocyte Abs 0.7 0.3 - 0.9 [facility] x10(3)/[facility] LABORATORY Eosinophils % 3.6 % [facility] Eosinophils Abs 0.4 0.0 - 0.4 [facility] x10(3)/[facility] LABORATORY Basophils % 0.5 % [facility] Basophils Abs 0.0 0.0 - 0.1 [facility] x10(3)/[facility] LABORATORY Immature Gran % 0.70 [...] Gran Abs 0.07 (H) 0.00 - 0.04 x10(3)/[facility] LABORATORY Specimen Anatomical Collection Method Collection Time Receive d Time (Source) Location / / Volume Laterality Blood specimen 08/08/2017 4:51 AM 018 5:14 (specimen) EST AM EST Resulting Agency Comment Spec In Lab Yonathan Smith MD HEMATOLOGY ORDERABLES Performing Organization Address City/State/Z[place] [address] (ABNORMAL) Hemogram (08/08/2017 4:51 AM EST) Analysis Performed At Patho logist Time Signature WBC 10.5 (H) 4.0 - 9.5 [facility] x[facility](3[facility] LABORATORY RBC 3.27 (L) 4.58 - [place] [facility] 5.54 [facility] x10(6)/[facility] LABORATORY Hemoglobin 9.3 (L) 13.7 - [facility] 16.5 gm/dL [facility] LABORATORY Hematocrit 30.3 (L) 40.5 - [facility] 48.5 % [facility] LABORATORY MCV 92.7 82.9 - [facility] 93.1 [facility] LABORATORY MCH 28.4 27.5 - [place] [facility] 32.1 pg [facility] LABORATORY MCHC 30.7 (L) 32.0 - [facility] 35.7 gm/dL [facility] LABORATORY Platelets 252 145 - 357 [facility] x10(3)/[facility] LABORATORY RDWSD 54.6 (H) 36.0 - [facility] 45.0 [facility] LABORATORY RDWCV 16.2 (H) 11.4 - [facility] 13.8 % [facility] LABORATORY MPV 9.1 7.6 - 12.9 [facility] LABORATORY nRBC % Auto 0.0 % [facility] LABORATORY nRBC Abs Auto 0.000 0.000 - [facility] 0.000 [facility] x10(3)/[facility] LABORATORY Specimen Anatomical Collection Method Collection Time Receive d Time (Source) Location / / Volume Laterality Blood specimen 08/08/2017 4:51 AM 018 5:14 (specimen) EST AM EST Resulting Agency Comment Spec In Lab Yonathan Smith MD HEMATOLOGY ORDERABLES Performing Organization Address City/State/ZIP Code Phon e Number [place] [id number]OS[address] LAB[address]ORY Drive (ABNORMAL) Prothrombin Time (08/08/2017 [...] Organization Address City/State/ZIP [place] [address] (ABNORMAL) Basic Metabolic Panel (non-fasting) (08/08/2017 4:51 AM EST) athologist Signature Glucose Lvl 229 (H) 65 - 199 [facility] mg/dL [facility] LABORATORY Comment: [...] or in patients with acute kidney failure. [email or web address] [email or web address] Specimen Anatomical Collection Method Collection Time Receive d Time (Source) Location / / Volume Laterality Blood specimen 08/08/2017 4:51 AM 018 5:14 (specimen) EST AM EST Resulting Agency Comment Spec In Lab Yonathan Smith MD CHEMISTRY ORDERABLES Performing Organization Address City/[facility] Phon e Number [address] POCT Glucose (08/08/2017 4:20 AM EST) athologist Signature POC Glucose 193 65 - 199 [facility] mg/dL [facility] LAB[facility]ORY Comment: Supplemental [...] [facility]/ZIP Code Phon e Number [address] POCT Glucose (08/07/2017 11:11 PM EST) P athologist Signature POC Glucose 124 65 - 199 [facility]dL [facility] LAB[facility]ORY Comment: Supplemental [...] [facility]/[place] [address] (ABNORMAL) APTT (08/07/2017 10:18 PM EST) athologist Signature PTT 114 (H) 25 - 35 sec [facility] Comment: The recommended therapeutic range for fu ll dose, unfractionated heparin at [facility] is 80 ? 114 seconds. [...] Smith MD HEMATOLOGY ORDERABLES Performing Organization Address [facility]/[place] [address] POCT Glucose (08/07/2017 8:10 PM EST) athologist Signature POC Glucose 140 65 - 199 [facility] mg/dL [facility] LABORATORY Comment: Supplemental [...] [facility]/ZIP Code Phon e Number [address] POCT Glucose (08/07/2017 5:27 PM EST) athologist Signature POC Glucose 187 65 - 199 [facility]dL [facility] LAB[facility]ORY Comment: Supplemental [...] [facility]/ZIP Code Phon e Number [address] POCT Glucose (08/07/2017 3:29 PM EST) athologist Signature POC Glucose 86 65 - 199 [facility] mg/dL [facility] LABORATORY Comment: Supplemental ranges: <140 mg/dL before meals <180 mg/dL all other times of the day Specimen Anatomical Collection Method Collection Time Receive d Time (Source) Location / / Volume Laterality Blood specimen 08/07/2017 3:29 PM 018 3:29 (specimen) EST PM EST Yonathan Smith MD POINT OF CARE TEST ORDERABLE S Performing Organization Address [facility] [place] [address] (ABNORMAL) APTT (08/07/2017 2:50 PM EST) athologist Signature PTT 60 (H) 25 - 35 sec [facility] Comment: The recommended therapeutic range for fu ll dose, unfractionated heparin at [facility] is 80 ? 114 seconds. [...] Performing Organization Address City/[facility]/ZIP [facility] [place] [address] (ABNORMAL) POCT Glucose (08/07/2017 2:23 PM EST) athologist Signature POC Glucose 55 (L) 65 - 199 [facility] mg/dL [facility] LABOR[facility]ORY Comment: Supplemental [...] Address City/State/ZIP Code Phon e Number [address] POCT Glucose (08/07/2017 12:08 PM EST) P athologist Signature POC Glucose 77 65 - 199 [facility] mg/dL [facility] LABORATORY Comment: Supplemental ranges: <140 mg/dL before meals <180 mg/dL all other times of the day Specimen Anatomical Collection Method Collection Time Receive d Time (Source) Location / / Volume Laterality Blood specimen 08/07/2017 12:08 8 (specimen) PM EST 12:08 PM EST Yonathna Smith MD POINT OF CARE TEST ORDERABLE S Performing Organization Address City/State/[place] [address] (ABNORMAL) Differential, Automated (08/07/2017 7:30 AM EST) Patholo gist Method Time Signature Neutrophils % 73.8 % [facility] LABORATORY Neutr Abs (ANC) 7.17 (H) 1.70 - [facility] 6.10 [facility] x10(3)/[facility] LABORATORY Lymphocytes % 12.2 % [facility] LABORATORY Lymphocytes Abs 1.2 0.9 - 3.2 [facility] x10(3)/[facility] LABORATORY Monocytes % 9.0 % [facility] LABORATORY Monocyte Abs 0.9 0.3 - 0.9 [facility] x10(3)/[facility] LABORATORY Eosinophils % 3.9 % [facility] LABORATORY Eosinophils Abs 0.4 0.0 - 0.4 [facility] x10(3)/[facility] LABORATORY Basophils % 0.6 % [facility] LABORATORY Basophils Abs 0.1 0.0 - 0.1 [facility] x10(3)/[facility] LABORATORY Immature Gran % 0.50 [...] Organization Address City/State/ZIP [place] [address] (ABNORMAL) Hemogram (08/07/2017 7:30 AM EST) Analysis Performed At Patho logist Time Signature WBC 9.7 (H) 4.0 - 9.5 [facility] x10(3)/[facility] LABORATORY RBC 3.54 (L) 4.58 - [facility] 5.[facility] x10(6)/[facility] LABORATORY Hemoglobin 9.9 (L) 13.7 - [facility] 16.5 gm/dL [facility] LABORATORY Hematocrit 32.3 (L) 40.5 - [facility] 48.5 % [facility] LABORATORY MCV 91.2 82.9 - [facility] 93.1 [facility] LABORATORY MCH 28.0 27.5 - [facility] 32.1 pg [facility] LABORATORY MCHC 30.7 (L) 32.0 - [facility] 35.7 gm/dL [facility] LABORATORY Platelets 312 145 - 357 [facility] x10(3)/[facility] LABORATORY RDWSD 53.2 (H) 36.0 - [facility] 45.0 [facility] RDWCV 16.0 (H) 11.4 - [facility] 13.8 % [facility] LABORATORY MPV 8.9 7.6 - 12.9 [facility] LABORATORY nRBC % Auto 0.0 % [facility] LABORATORY nRBC Abs Auto 0.000 0.000 - [facility] 0.000 [facility] x10(3)/[facility] LABORATORY Specimen Anatomical Collection Method Collection Time Receive d Time (Source) Location / / Volume Laterality Blood specimen 08/07/2017 7:30 AM 018 7:45 (specimen) EST AM EST Resulting Agency Comment Spec In Lab Yonathan Simth MD HEMATOLOGY ORDERABLES Performing Organization Address City/State/ZIP [place] [address] (ABNORMAL) Basic Metabolic Panel (non-fasting) (08/07/2017 7:30 AM EST) P athologist Signature Glucose Lvl 80 65 - 199 [facility] mg/dL [facility] LABOR[facility]ORY Comment: [...] or in patients with acute kidney failure. [email or web address] [email or web address] Specimen Anatomical Collection Method Collection Time Receive d Time (Source) Location / / Volume Laterality Blood specimen 08/07/2017 7:30 AM 018 7:45 (specimen) EST AM EST Resulting Agency Comment Spec In Lab Yonathan Smith MD CHEMISTRY ORDERABLES Performing Organization Address City/[facility]/ZIP Code Phon e Number [address] POCT Glucose (08/07/2017 7:27 AM EST) athologist Signature POC Glucose 81 65 - 199 [facility] mg/dL [facility] LABORATORY Comment: Supplemental [...] [facility]/ZIP Code Phon e Number [address] APTT (08/07/2017 7:04 AM EST) athologist Signature PTT 34 25 - 35 sec [facility] LABOR[facility]ORY Comment: The recommended therapeutic range for fu ll dose, unfractionated heparin at [facility] is 80 ? 114 seconds. [...] [facility]/ZIP Code Phon e Number [address] (ABNORMAL) Prothrombin Time (08/07/2017 [...] Address City/State/ZIP Code Phon e Number [address] POCT Glucose (08/07/2017 4:03 AM EST) athologist Signature POC Glucose 93 65 - 199 [facility] mg/dL [facility] LAB[facility]ORY Comment: Supplemental [...] Address City/State/ZIP Code Phon e Number [address] POCT Glucose (08/07/2017 12:04 AM EST) athologist Signature POC Glucose 107 65 - 199 [facility] mg/dL [facility] LABORATORY Comment: Supplemental [...] Address City/State/ZIP Code Phon e Number [address] POCT Glucose (08/06/2017 7:56 PM EST) P athologist Signature POC Glucose 178 65 - 199 [facility]/dL [facility] LAB[facility]ORY Comment: Supplemental [...] Address City/State/ZIP Code Phon e Number [address] [id number] (08/06/2017 2:32 PM EST) Component Value Ref Test Analysis Performed At Patholo gist Range Method Time Signature VB Text Department: Vascular Surgery Lab VASCUBASE Report Patient: [id number] (GREGORY HOANG) CPT: [id number] ICD10: I99.8 Referring Physician: YONATHAN SMITH ?? [...] Volume Laterality 08/06/2017 2:32 PM EST Yonathan Smiht MD VASCULAR ORDERABLES Performing Organization Address City/State/ZIP [...] 81 mg 0823 (Given - Provider: Chiquis muñzo RN) 0800 (Given - Provider: Dory Truong [...] Provider: Chiquis Mcgrath RN)1751 (Given - Provider: hCiquis Mcgrath RN) 0157 (Given - Provider: Melba [...]
Routine documented in this encounter Care Teams Labor Service Representative Relationship Specialty Start Date End Date Lovely Vicente MD PCP - General 04/16/[address] [place] [address] documented as of this encounter
--- OUTSIDE RECORDS SUMMARY | 2022-04-20 08:15 | XMS_ITS | Encounter Summary ---
:1945 Author Organization [facility] [place] [address] Care Team Providers Name Role Phone Lovely Vicente MD Primary Care Provider Reason for Visit Auth/Cert Specialty Diagnoses / Procedures Referred By Contact Refer red To Contact Diagnoses Critical lower limb ischemia CELLULITIS RT FOOT Procedures EMERGENCY Referral ID Status Reason Start Date Expiration Date Visits Requ ested Visits Authorized [id number] 1 1 Encounter Details Date Type Department Care Team Description 08/04/2017 Hospital Encounter XRay at [facility] Danette Maxwell Incisional pain [address] [place] [address] Dr Gomes, REPAIR WELDER [facility] [id number] CARDIOLOGY [place], [place] [address] Social History Tobacco Use Types [...] Zulma Dolan MD [facility] [place], [place] [address] (Wo rk) 05/28/2022 Laboratory Appointment Lab 05/28/2022 Office Visit Cardiology Zulma Dolan MD [facility] [place] [address] Liz Poole PA [facility] [place] [address] 06/10/2022 Office Visit Dermatology Laura Scherer MD [facility] [address] [facility]JA [facility] [place], [place] [address] (Wo rk) documented as [...] original. EXAMINATION: XR CHEST PA AND LATERAL ([facility]) CLINICAL HISTORY: Checking sternal stabi lity/assess wires [...] Daniele gutiérrez 08/04/2017 4:13 PM Danette Maxwell REPAIR WELDER IMG DX ORDERABLES documented in this encounter Visit Diagnoses Diagnosis Incisional pain Disturbance of skin sensation documented in this encounter Care Teams Director Of Retail Analytics Relationship Specialty Start Date End Date Lovely Vicente MD PCP - General 04/16/[address] [place] [address] documented as of this encounter
--- OUTSIDE RECORDS SUMMARY | 2022-04-20 08:15 | XMS_ITS | Encounter Summary ---
:1945 Author Organization [facility] [address] Care Team Providers Name Role Phone Lovely Vciente MD Primary Care Provider Reason for Visit Reason Comments Pain Management Ankle Pain Toe Pain Encounter Details Date Type Department Care Team Description 07/30/2017 Office Visit Pain Management at Barbra Soares, Per ipheral neuropathy [place] COACH TOUR DRIVER due to ischemia [facility] [address], [place], [place] [phone] Social History Tobacco Use Types Packs/Day Years [...] APRN - 07/30/2017 1:45 PM EST [facility] [place] [address] Phone: PAIN MANAGEMENT NEW PATIENT / CONSULTATION NOTE DATE OF VISIT 07/30/2017 Patient Don Fatima 1945 REFERRING PROVIDER Lovely Vicente MD [address] [place] [id number] PRIMARY CARE PROVIDER Lovely Vicente MD CHIEF [...] much relief PAST THERAPIES: Nothing MEDICATIONS The [place] Prescription Monitoring Program was checked and [...] SETUP performed by Manny Mcknight MD at [facility] OR [...] [facility] ENDOSCOPY ??? PRO ENDOSCOPY W/VIDEO-ASST VEIN HARVEST, CABG Right 07/07/2017 ENDOSCOPIC HARVEST VEIN(S) FOR CABG (WRVU 0.31) performed by Yuan Retana MD at [facility] OR ??? PRO THYROIDECTOMY [...] referral, Lovely Vicente MD [address] [place] [address]. Barbra Soares, MSN, DATA OPERATIONS MANAGER-BC, COACH TOUR DRIVER Nurse Practitioner Pain Management Center documented in this encounter Plan of Treatment Upcoming Encounters Date Type Specialty Care Team Description 05/28/2022 Appointment Cardiology Zulma Dolan MD [facility] [place], [place] [address] (Wo rk) 05/28/2022 Laboratory Appointment Lab 05/28/2022 Office Visit Cardiology Zulma Dolan MD [facility] [place] [address] Liz Poole PA [facility] [place] [address] 06/10/2022 Office Visit Dermatology Laura Scherer MD [facility] [address] [place], [place] [address] (Wo rk) documented as of this encounter Visit Diagnoses Diagnosis 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
--- OUTSIDE RECORDS SUMMARY | 2022-04-20 08:15 | XMS_ITS | Encounter Summary ---
:1945 Author Organization [facility] [place] [address] Care Team Providers Name Role Phone Lovely Vicente MD Primary Care Provider Reason for Visit Auth/Cert Specialty Diagnoses / Procedures Referred By Contact Refer red To Contact Diagnoses Critical lower limb ischemia CELLULITIS RT FOOT Procedures EMERGENCY Referral ID Status Reason Start Date Expiration Date Visits Requ ested Visits Authorized [id number] 1 1 Encounter Details Date Type Department Care Team Description 08/06/2017 Hospital [facility] [place] [address] Social History Tobacco Use Types Packs/Day [...] Dolan MD [facility] [address] [place], [place] [address] (Wo rk) 05/28/2022 Laboratory Appointment Lab 05/28/2022 Office Visit Cardiology Zulma Dolan MD [facility] [place] [address] Liz Poole PA [facility] [place] [address] 06/10/2022 Office Visit Dermatology Laura Scherer MD [facility] [address] [place], [place] [address] (Wo rk) documented as of this encounter Visit Diagnoses Not on filedocumented in this encounter Care Teams Operational Intelligence Analyst Relationship Specialty Start Date End Date Lovely Vicente MD PCP - General 04/16/[address] [place] [address] documented as of this encounter
--- OUTSIDE RECORDS SUMMARY | 2022-04-20 08:15 | XMS_ITS | Encounter Summary ---
:1945 Author Organization [facility] Address [facility] [place] [address] Care Team Providers Name Role Phone Lovely Vicente MD Primary Care Provider Reason for Visit Auth/Cert Specialty Diagnoses / Procedures Referred By Contact Refer red To Contact Diagnoses Critical lower limb ischemia CELLULITIS RT FOOT Procedures EMERGENCY Referral ID Status Reason Start Date Expiration Date Visits Requ ested Visits Authorized [id number] 1 1 Encounter Details Date Type Department Care Team Description 08/04/2017 Laboratory Lab 3L Barbara Cardiomyopathy, unspecified type; Appointment [facility] Systolic congestive heart failure, unspecified congestive heart failure chronicity; Hospital Coronary artery rupture; [facility] Ischemic cardiomyopathy; Drive Atherosclerosis of [place] co ronary artery, angina presence unspecified, unspecified whether [place] or transplanted heart; [place], [place] Essential hyper tension, malignant; [phone] 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, unspecified technician terminal and repeater insulin use status [phone] Social History Tobacco Use Types Packs/Day Years [...] Dolan MD [facility] [address] [place] [address] (Wo rk) 05/28/2022 Laboratory Appointment Lab 05/28/2022 Office Visit Cardiology Zulma Dolan MD [facility] [place] [place] [address] Liz Poole PA [facility] [place] [address] 06/10/2022 Office Visit Dermatology Laura Scherer MD [facility] ER DR [address]MAT [place], [place] [address] (Wo rk) documented as of [...] with the results diabetic section. nephropathy, unspecified alf insulin use status Essential hypertension, malignant COMPREHENSIVE Routine 08/04/2017 12:55 Essential Results fo r this METABOLIC PANEL PM EST hypertension, procedure a re in (NON-FASTING) malignant the results section. documented in this encounter Results Uric acid (08/04/2017 12:55 PM EST) P athologist Signature Uric Acid 7.1 3.5 - 8.5 [facility] mg/dL [facility] Specimen Anatomical Collection Method Collection Time Receive d Time (Source) Location / / Volume Laterality Blood specimen 08/04/2017 12:55 8 1:01 (specimen) PM EST PM EST Resulting Agency Comment Spec In Lab Lovely Vicente MD CHEMISTRY ORDERABLES Performing Organization Address City/[facility]/[place] [address] (ABNORMAL) Hemogram (08/04/2017 12:55 PM EST) Analysis Performed At Patho logist Time Signature WBC 15.8 (H) 4.0 - 9.5 [facility] x10(3)/[facility] LABORATORY RBC 3.48 (L) 4.58 - [facility] RYAN 5.54 [facility] x10(6)/[facility] LABORATORY Hemoglobin 9.9 (L) 13.7 - [facility] 16.5 gm/dL [facility] Hematocrit 31.4 (L) 40.5 - [facility] 48.5 % [facility] MCV 90.2 82.9 - [facility] 93.1 [facility] LABORATORY MCH 28.4 27.5 - [facility] 32.1 pg [facility] MCHC 31.5 (L) 32.0 - [facility] 35.7 gm/dL [facility] Platelets 310 145 - 357 [facility] x10(3)/[facility] LABORATORY RDWSD 51.8 (H) 36.0 - [facility] 45.0 [facility] LABORATORY RDWCV 15.8 (H) 11.4 - [facility] RYAN 13.8 % [facility] MPV 8.9 7.6 - 12.9 [facility] LABORATORY nRBC % Auto 0.0 % [facility] nRBC Abs Auto 0.000 0.000 - [facility] 0.000 [facility] x10(3)/[facility] LABORATORY Specimen Anatomical Collection Method Collection Time Receive d Time (Source) Location / / Volume Laterality Blood specimen 08/04/2017 12:55 8 1:01 (specimen) PM EST PM EST Resulting Agency Comment Spec In Lab Lovely Vicente MD HEMATOLOGY ORDERABLES Performing Organization Address City/State/[place] [address] (ABNORMAL) Comprehensive metabolic panel (non-fasting) (08/04/2017 12:55 PM EST) athologist Signature Glucose Lvl 208 (H) 65 - 199 [facility] mg/dL [facility] Comment: Diabetes: >=200 mg/dL plus symp toms BUN 32 (H) 10 - 20 mg/dL [facility] Creatinine 1.58 (H) 0.80 - [...] LABORATORY AST 20 0 - 39 unit/L [facility] ALT 21 0 - 55 unit/L [facility] Alk Phos 93 40 - 120 unit/L [facility] Total Bilirubin 0.4 0.2 - 1.3 mg/dL [facility] Estimated GFR 43 (L) >=60 [facility] Comment: The reported eGFR should be multiplied b y 1.2 for patients. The MDRD is not an appropriate measure o f renal function for patients with body mass extremes or in patients with acute kidney failure. http://[employer] [place]/DHnkdep http://[employer] [place]/DHMCnkf Specimen Anatomical Collection Method Collection Time Receive d Time (Source) Location / / Volume Laterality Blood specimen 08/04/2017 12:55 8 1:01 (specimen) PM EST PM EST Resulting Agency Comment Spec In Lab Lovely Vicente MD CHEMISTRY ORDERABLES Performing Organization Address City/State/ZIP Code Phon e Number [place] [id number] HOSP[address] LAB[address]ORY [address] (ABNORMAL) Hemoglobin A1c (08/04/2017 [...] [id number] Est Avg Gluc See note mg/dL [facility] [...] with hemoglobinopathies. Additional resources are available on [facility] website. Macario HAMMOND, Ruthann J, Deysi R, et al. ??Tr anslating the A1C assay into estimated average glucose values. ??Diabetes Care 2008:31(8):8933-4463. Specimen Anatomical Collection Method Collection Time Receive d Time (Source) Location / / Volume Laterality Blood specimen 08/04/2017 12:55 8 1:01 (specimen) PM EST PM EST Resulting Agency Comment Spec In Lab Lovely Vciente MD CHEMISTRY ORDERABLES Performing Organization Address [place]/[facility] [place] [address] (ABNORMAL) Prothrombin Time (08/04/2017 [...] Vicente MD HEMATOLOGY ORDERABLES Performing Organization Address [place]/[facility] [address] (ABNORMAL) pro-Brain Natriuretic Peptide (08/04/2017 12:55 PM EST) P athologist Signature ProBNP 3,133 (H) <=125 [facility] pg/mL [facility] Specimen Anatomical Collection Method Collection Time Receive d Time (Source) Location / / Volume Laterality Blood specimen 08/04/2017 12:55 8 1:01 (specimen) PM EST PM EST Resulting Agency Comment Spec In Lab Danette Maxwell APRN CHEMISTRY ORDERABLES Performing Organization Address City/State/[place] [address] documented in this encounter [...] underlying cond ition with diabetic nephropathy, unspecified technician terminal and repeater insulin use status documented in this encounter Care Teams Monorail Operator Relationship Specialty Start Date End Date Lovely Vicente MD PCP - General 04/16/[address] [place] [address] documented as of this encounter
--- OUTSIDE RECORDS SUMMARY | 2022-04-20 08:15 | XMS_ITS | Encounter Summary ---
:1945 Author Organization [facility] [place] [address] Care Team Providers Name Role Phone Lovely Vicente MD Primary Care Provider Reason for Visit Auth/Cert Specialty Diagnoses / Procedures Referred By Contact Refer red To Contact Diagnoses Critical lower limb ischemia CELLULITIS RT FOOT Procedures EMERGENCY Referral ID Status Reason Start Date Expiration Date Visits Requ ested Visits Authorized [id number] 1 1 Encounter Details Date Type Department Care Team Description 08/06/2017 Laboratory Appointment Lab at [facility] [place] [place] Ischemia of foot [facility] [place] [address] Social History Tobacco Use Types Packs/Day [...] MD [facility] er [address] [place] [address] (Wo rk) 05/28/2022 Laboratory Appointment Lab 05/28/2022 Office Visit Cardiology Zulma Dolan MD [facility] [place] [address] Liz Poole PA [facility] [place] [address] 06/10/2022 Office Visit Dermatology Laura Scherer MD [facility] ER DR [address] [facility] [place] [place] [address] (Wo rk) documented as of [...] - 40 [facility] mg/dL [place] [facility] Comment: Prealbumin levels are generally lower in the pediatric population; adult concentrations are usually attained near puberty. Specimen Anatomical Collection Method Collection Time Receive d Time (Source) Location / / Volume Laterality Blood specimen 08/06/2017 12:32 8 1:15 (specimen) PM EST PM EST Resulting Agency Comment Spec In Lab Arik Clement MD CHEMISTRY ORDERABLES Performing Organization Address City/State/ZIP [place] [address] (ABNORMAL) Basic Metabolic Panel (non-fasting) (08/06/2017 12:32 PM EST) P athologist Signature Glucose Lvl 92 65 - 199 [facility] mg/dL [place] [facility] Comment: Diabetes: >=200 mg/dL plus symp toms BUN 29 (H) 10 - 20 mg/dL [facility] Creatinine 1.33 0.80 - [...] Gap 16 (H) 5 - 15 mmol/L [facility] Calcium 8.5 8.5 - 10.5 mg/dL [facility] Estimated GFR 53 (L) >=60 [facility] Comment: The reported eGFR should be multiplied b y 1.2 for patients. The MDRD is not an appropriate measure o f renal function for patients with body mass extremes or in patients with acute kidney failure. http://[employer]/DHnkdep http://[employer]/DHMCnkf Specimen Anatomical Collection Method Collection Time Receive d Time (Source) Location / / Volume Laterality Blood specimen 08/06/2017 12:32 8 1:15 (specimen) PM EST PM EST Resulting Agency Comment Spec In Lab Arik Clement MD CHEMISTRY ORDERABLES Performing Organization Address City/State/ZIP [place] [address] (ABNORMAL) Hemogram (08/06/2017 12:32 PM EST) Analysis Performed At Patho logist Time Signature WBC 11.8 (H) 4.0 - 9.5 [facility] x10(3)/[facility] LABORATORY RBC 3.49 (L) 4.58 - [facility] 5.[address] [facility] x10(6)/[facility] LABORATORY Hemoglobin 9.9 (L) 13.7 - [facility] 16.5 gm/dL [place] [facility] Hematocrit 32.0 (L) 40.5 - [facility] 48.5 % [place] [facility] MCV 91.7 82.9 - [facility] 93.[address] [facility] LABORATORY MCH 28.4 27.5 - K[place]ALINA DAVIS 32.1 pg [place] [facility] MCHC 30.9 (L) 32.0 - [facility] DAV[facility] 35.7 gm/dL [place] [facility] Platelets 326 145 - 357 [facility] x10(3)/[facility] LABORATORY RDWSD 53.4 (H) 36.0 - [place] DAVIS 45.[address] [facility] LABORATORY RDWCV 16.0 (H) 11.4 - [place] RYAN 13.8 % [place] [facility] MPV 9.1 7.6 - 12.9 [facility] LABORATORY nRBC % Auto 0.0 % [facility]ORATORY nRBC Abs Auto 0.000 0.000 - [place] DAVIS 0.[address] [facility] x10(3)/[facility] LABORATORY Specimen Anatomical Collection Method Collection Time Receive d Time (Source) Location / / Volume Laterality Blood specimen 08/06/2017 12:32 8 1:15 (specimen) PM EST PM EST Resulting Agency Comment Spec In Lab Arik Clement MD HEMATOLOGY ORDERABLES Performing Organization Address City/State/ZIP Code Phon e Number [place] [phone] HOSP[address] LAB[address] documented in this encounter Visit Diagnoses Diagnosis Ischemia of foot Unspecified circulatory system disorder documented in this encounter Care Teams Printed Circuit Boards Router Relationship Specialty Start Date End Date Lovely Vicente MD PCP - General 04/16/[address] [place] [address] documented as of this encounter
--- OUTSIDE RECORDS SUMMARY | 2022-04-20 08:15 | XMS_ITS | Encounter Summary ---
:1945 [place] [address] Care Team Providers Name Role Phone Lovely Vicente MD Primary Care Provider Encounter Details Date Type Department Care Team Description 07/29/2017 Telephone Pain Aurelia Crawford MD [facility] [place] [address] PAIN CLINIC [phone] [place], [place] [address] (Wo rk) Social History [...] Dolan MD [facility] Dr [place], [place] [address] (Wo rk) 05/28/2022 Laboratory Appointment Lab 05/28/2022 Office Visit Cardiology Zulma Dolan [place] [address] Liz Poole PA [facility] [place] [address] 06/10/2022 Office Visit Dermatology Laura Scherer MD [facility] [address] [place], [place] [address] (Wo rk) documented as of this encounter Visit Diagnoses Not on filedocumented in this encounter Care Teams Hospitality Job Titles Relationship Specialty Start Date End Date Lovely Vicente MD PCP - General 04/16/[address] [place] [address] [address] [place] [address] documented as of this encounter
--- OUTSIDE RECORDS SUMMARY | 2022-04-20 08:15 | XMS_ITS | Encounter Summary ---
:1945 Author Organization [facility] [place] [address] Care Team Providers Name Role Phone Lovely Vicente MD Primary Care Provider Encounter Details Date Type Department Care Team Description 08/06/2017 Orders Only [facility]ascular Surgery [facility] [place] APRN Ischemia of foot [facility] [place] [address] VASCULAR SURGERY [phone] [place], [place] [address] (Wo rk) Social History Tobacco [...] MD [facility] er [place], [place] [address] (Wo rk) 05/28/2022 Laboratory Appointment Lab 05/28/2022 Office Visit Cardiology Zulma Dolan MD [facility] [place] [address] Liz Poole PA [facility] [place] [address] 06/10/2022 Office Visit Dermatology Laura Scherer MD [facility] ER DR [address]MAT [place], [...] 444 ms MUSE SYSTEM (Bezet) Calculated P [place] 44 degrees MUSE SYSTEM Calculated R [place] -31 degrees MUSE SYSTEM Calculated T [place] 106 degrees MUSE SYSTEM INTERPRETATION Normal sinus [...] (L) 20 - 40 [place] RYAN mg/dL [facility] Comment: Prealbumin levels [...] City/State/[place] [address] (ABNORMAL) Basic Metabolic Panel (non-fasting) (08/06/2017 12:32 PM EST) athologist Signature Glucose Lvl 92 65 - 199 [facility] mg/dL [facility] Comment: Diabetes: >=200 [...] or in patients with acute kidney failure. http://[employer]/DHnkdep http://[employer]/DHMCnkf Specimen Anatomical Collection Method Collection Time Receive d Time (Source) Location / / Volume Laterality Blood specimen 08/06/2017 12:32 8 1:15 (specimen) PM EST PM EST Resulting Agency Comment Spec In Lab Arik Clement MD CHEMISTRY ORDERABLES Performing Organization Address City/State/[place] [address] (ABNORMAL) Hemogram (08/06/2017 12:32 PM EST) Analysis Performed At Patho logist Time Signature WBC 11.8 (H) 4.0 - 9.5 [facility] x10(3)/[facility] LABORATORY RBC 3.49 (L) 4.58 - [facility] 5.54 [facility] x10(6)/[facility] LABORATORY Hemoglobin 9.9 (L) 13.7 - [facility] 16.5 gm/dL [facility] Hematocrit 32.0 (L) 40.5 - [facility] 48.5 % [facility] MCV 91.7 82.9 - [facility] 93.1 [facility] LABORATORY MCH 28.4 27.5 - [facility] 32.1 pg [facility] MCHC 30.9 (L) 32.0 - [facility] 35.7 gm/dL [facility] Platelets 326 145 - 357 [facility] x10(3)/[facility] LABORATORY RDWSD 53.4 (H) 36.0 - [facility] 45.0 [facility] LABORATORY RDWCV 16.0 (H) 11.4 - [facility] 13.8 % [facility] MPV 9.1 7.6 - 12.9 [facility] LABORATORY nRBC % Auto 0.0 % [facility]OR[facility]ORY nRBC Abs Auto 0.000 0.000 - [facility] 0.000 [facility] x10(3)/[facility] LABORATORY Specimen Anatomical Collection Method Collection Time Receive d Time (Source) Location / / Volume Laterality Blood specimen 08/06/2017 12:32 8 1:15 (specimen) PM EST PM EST Resulting Agency Comment Spec In Lab Arik Clement MD HEMATOLOGY ORDERABLES Performing Organization Address City/State/[place] [address] documented in this encounter Visit Diagnoses Diagnosis Ischemia of foot Unspecified circulatory system disorder documented in this encounter Care Teams Film Spooler Relationship Specialty Start Date End Date Lovely Vicente MD PCP - General 04/16/[address] [place] [address] documented as of this encounter
--- OUTSIDE RECORDS SUMMARY | 2022-04-20 08:15 | XMS_ITS | Encounter Summary ---
:1945 Author Organization [facility] [address] Care Team Providers Name Role Phone Lovely Vicente MD Primary Care Provider Encounter Details Date Type Department Care Team Description 08/03/2017 Telephone Pain Management at [place], [place] [address] Social History Tobacco Use Types Packs/Day [...] Management Center Preauthorization Request Patient: Don Fatima [id number] Fax received from [facility] requesting we obtain prior authorization for Lidocaine Patches prescribed by Barbra Soares APRN. RX insurance plan: [facility] [employer] insurance telephone: [phone] Patient ?? Diagnosis: right foot pain secondary to PVD and ischemia ?? Previous medications attempted: Tylenol, Tramadol, Dilaudid Authorization/Reference number: [id number], PBP Code 801 _x_ denied, provider and patient informed _x_ appeal initiated by provider, patient informed Angeles Rodrigez, RN documented in this encounter Plan of Treatment Upcoming Encounters Date Type Specialty Care Team Description 05/28/2022 Appointment Cardiology Zulma Dolan MD [facility] [place], [place] [address] (Wo rk) 05/28/2022 Laboratory Appointment Lab 05/28/2022 Office Visit Cardiology Zulma Dolan MD [facility] [place] [address] Liz Poole PA [facility] [place] [address] 06/10/2022 Office Visit Dermatology Laura Scherer MD [facility] [address] [place], [place] [address] (Wo rk) documented as of this encounter Visit Diagnoses Not on filedocumented in this encounter Care Teams Cancer Genetics Assistant Relationship Specialty Start Date End Date Lovely Vicente MD PCP - General 04/16/[address] [place] [address] documented as of this encounter
--- OUTSIDE RECORDS SUMMARY | 2022-04-20 08:15 | XMS_ITS | Encounter Summary ---
:1945 [place] [address] Care Team Providers Name Role Phone Lovely Vicente MD Primary Care Provider Encounter Details Date Type Department Care Team Description 08/05/2017 Notes Only [place] [facility] [place], STACIE [facility] [place] [address] VASCULAR SURGERY [phone] [place], [place] [address] (Wo rk) Social History Tobacco [...] Appointment Cardiology Zulma Dolan MD [facility] [place], [place] [address] (Wo rk) 05/28/2022 Laboratory Appointment Lab 05/28/2022 Office Visit Cardiology Zulma Dolan [place] [facility] [place] [address] Liz Poole PA [facility] [place] [address] 06/10/2022 Office Visit Dermatology Laura Scherer MD [facility] [address] [place], [place] [address] (Wo rk) documented as of this encounter Visit Diagnoses Not on filedocumented in this encounter Care Teams Coach Driver Relationship Specialty Start Date End Date Lovely Vicente MD PCP - General 04/16/15 [facility] [address] [place] [address] documented as of this encounter
--- OUTSIDE RECORDS SUMMARY | 2022-04-20 08:15 | XMS_ITS | Encounter Summary ---
:1945 Author Organization [facility] [place] [address] Care Team Providers Name Role Phone Lovely Vicente MD Primary Care Provider Encounter Details Date Type Department Care Team Description 07/29/2017 Transcribe Orders Laboratory Lovely Vicente MD [address] [address] [place] [address] [phone] (Wo rk) Social History Tobacco Use Types [...] MD [facility] er Dr [place] [id number] (Wo rk) 05/28/2022 Laboratory Appointment Lab 05/28/2022 Office Visit Cardiology Zluma Dolan MD [facility] [place] [id number] Liz Poole PA [facility] [place] [address] 06/10/2022 Office Visit Dermatology Laura Scherer MD [facility] ER [address] [place], [place] [address] (Wo rk) documented as of this encounter Visit Diagnoses Not on filedocumented in this encounter Care Teams Embedded Systems Developer Relationship Specialty Start Date End Date Lovely Vicente MD PCP - General 04/16/[address] [place] [address] documented as of this encounter
--- OUTSIDE RECORDS SUMMARY | 2022-04-20 08:15 | XMS_ITS | Encounter Summary ---
:1945 Author Organization [facility] [place] [address] Care Team Providers Name Role Phone Lovely Vicente MD Primary Care Provider Reason for Visit Auth/Cert Specialty Diagnoses / Procedures Referred By Contact Refer red To Contact Diagnoses Critical lower limb ischemia CELLULITIS RT FOOT Procedures EMERGENCY Referral ID Status Reason Start Date Expiration Date Visits Requ ested Visits Authorized [id number] 1 1 Encounter Details Date Type Department Care Team Description 08/04/2017 Office Visit Cardiology at [facility] Danette Maxwell Incisional pain; [facility] A, ALLERGIST/IMMUNOLOGIST Ischemic cardiomyopathy; [facility] ASCVD (arteriosclerotic card iovascular disease); [place], [place] Systolic heart failure, unspecified hear t failure chronicity [id number] CARDIOLOGY [phone] [place], [place] [address] Social History Tobacco Use [...] in this encounter Progress Notes Danette Maxwell, ALLERGIST/IMMUNOLOGIST - 08/04/2017 3:00 PM EST ID and [...] painful and 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 [...] Dolan MD [facility] [address] [place], [place] [address] (Wo rk) 05/28/2022 Laboratory Appointment Lab 05/28/2022 Office Visit Cardiology Zulma Dolan MD [facility] [place] [address] Liz Poole PA [facility] [place] [address] 06/10/2022 Office Visit Dermatology Laura Scherer MD [facility] [address] [place], [place] [address] (Wo rk) documented [...] sensation documented in this encounter Care Teams Cotton Expert Relationship Specialty Start Date End Date Lovely Vicente MD PCP - General 04/16/[address] [place] [address] documented as of this encounter
--- OUTSIDE RECORDS SUMMARY | 2022-04-20 08:15 | XMS_ITS | Encounter Summary ---
:1945 Author Organization [facility] [place] [address] Care Team Providers Name Role Phone Lovely Vicente MD Primary Care Provider Reason for Visit Reason Comments Foot Ulcer WOUND CHECK Auth/Cert Specialty Diagnoses / Procedures Referred By Contact Refer red To Contact Diagnoses Critical lower limb ischemia CELLULITIS RT FOOT Procedures EMERGENCY Referral ID Status Reason Start Date Expiration Date Visits Requ ested Visits Authorized [id number] 1 1 Encounter Details Date Type Department Care Team Description 08/06/2017 [facility] ischemia [facility] [address] [place], [place] VASCULAR SURGERY [id number] [place] [address] [phone] Social History Tobacco Use Types Packs/Day Years [...] Smith MD - 08/06/2017 1:00 PM EST [facility] staff: 1. RIGHT leg CLI Interval [...] MD [facility] [address] [place], [place] [address] (Wo ) 05/28/2022 Laboratory Appointment Lab 05/28/2022 Office Visit Cardiology Zulma Dolan MD [facility] [place] [address] Liz Poole PA [facility] [place] [address] 06/10/2022 Office Visit Dermatology Laura Scherer MD [facility] ER DR [address] [place], [place] [address] (Wo rk) documented as of this encounter Visit Diagnoses Diagnosis Critical lower limb ischemia Unspecified circulatory system disorder documented in this encounter Care Teams Manager Strategic Development Relationship Specialty Start Date End Date Lovely Vicente MD PCP - General 04/16/[address] [place], [place] [address] documented as of this encounter
--- OUTSIDE RECORDS SUMMARY | 2022-04-20 08:15 | XMS_ITS | Encounter Summary ---
:1945 [place] [address] Care Team Providers Name Role Phone Lovely Vicente MD Primary Care Provider Encounter Details Date Type Department Care Team Description 08/04/2017 Notes Only Cardiac Surgery Makayla Wilson APRN [facility] [place] [address] CARDIAC SURGERY [phone] [place], [place] [address] (Wo rk) Social History Tobacco [...] Dolan MD [facility] [place], [place] [address] (Wo rk) 05/28/2022 Laboratory Appointment Lab 05/28/2022 Office Visit Cardiology Zulma Dolan MD [facility] [place] [address] Liz Poole PA [facility] [place] [address] 06/10/2022 Office Visit Dermatology Laura Scherer MD [facility] [address] [place], [place] [address] (Wo rk) documented as of this encounter Visit Diagnoses Not on filedocumented in this encounter Care Teams Metallurgical Tester Relationship Specialty Start Date End Date Lovely Vicente MD PCP - General 04/16/[address] [place] [address] documented as of this encounter
--- OUTSIDE RECORDS SUMMARY | 2022-04-20 08:16 | XMS_ITS | Encounter Summary ---
:1945 [place] [address] Care Team Providers Name Role Phone Lovely Vicente MD Primary Care Provider Reason for Visit Reason Onset Date Comments Questions 07/16/2017 fluid retention Encounter Details Date Type Department Care Team Description 07/16/2017 Telephone Cardiology at [facility] Martha Comer, Questions ([facility] RN retention ) [place] [address] Social History Tobacco Use Types Packs/Day [...] the direct number to the HF team ([phone]). She is aware of his appt with OUTSOLE MOLDER Hans on 07/21/17 and the need for labs prior to that visit. verbalized good understanding of the current POC. documented in this encounter Plan of Treatment Upcoming Encounters Date Type Specialty Care Team Description 05/28/2022 Appointment Cardiology Zulma Dolan MD [facility] [address] [place], [place] [address] (Wo rk) 05/28/2022 Laboratory Appointment Lab 05/28/2022 Office Visit Cardiology Zulma Dolan MD [facility] [place] [address] Liz Poole PA [facility] [place] [address] 06/10/2022 Office Visit Dermatology Laura Scherer MD [facility] [address] [place], [place] [address] (Wo rk) documented as of this encounter Visit Diagnoses Not on filedocumented in this encounter Care Teams Cylinder Die Machine Helper Relationship Specialty Start Date End Date Lovely Vicente MD PCP - General 04/16/[address] [place] [address] documented as of this encounter
--- OUTSIDE RECORDS SUMMARY | 2022-04-20 08:16 | XMS_ITS | Encounter Summary ---
:1945 [place] [address] Care Team Providers Name Role Phone Lovely Vicente MD Primary Care Provider Reason for Visit Reason Comments Hospital Transfer cold foot post CABG Auth/Cert Specialty Diagnoses / Procedures Referred By Contact Refer red To Contact Diagnoses Critical lower limb ischemia Procedures NAYE IPI Referral ID Status Reason Start Date Expiration Date Visits Requ ested Visits Authorized [id number] 1 1 Encounter Details Date Type Department Care Team Description 07/20/2017 Hospital Encounter 4 Herminia Ibarra MD [facility] EMERGENCY [place] [address] Critical lower limb [facility] Arik Clement MD [facility] [place]ULAR [place] [address] [place] [address] Social History Tobacco Use Types Packs/Day Years [...] home. Important Studies and Lab Data: Labs: [facility] Lab Results Component Value Date INR 1.5 [...] For any problems or questions please call [phone] ZELDA Smith, note teller Nurse Clinician For issues on weeknights after 5pm and weekends please call [phone] and ask for the Vascular Fellow ammonia solution preparer. General Instructions None Future Appointments and Orders Future Appointments Provider Department Dept Phone 08/04/2017 1:00 PM Daniele Mooney [place] [facility] [place] [phone] 08/04/2017 2:15 PM Arik Clement MD [facility] [place] [phone] 09/07/2017 3:00 PM MAYRA CHACON Lab [facility] [phone] 09/07/2017 4:00 PM Luz Prescott MD [facility]ocrinology [facility] [place] [phone] Future Orders Complete By Expires Arterial Duplex Leg, Unil [VAS32 Custom] 07/27/2017 (Approximate) 01/26/2018 Process Instructions: There is no in-house vascular laboratory veterinarian available on weeknights (5pm-8am), weekends, or holidays. IF THIS IS A REQUEST FOR AN EMERGENT STUDY DURING THOSE HOURS, please have the senior provider responsible for the patient page the Vascular Surgery Fellow/Senior Resident ammonia solution preparer to discuss options. Scheduling Instructions: Questions: Indication for study/signs & symptoms: Right femoral PSA s/p cardiac cath Question to be answered: bloodflow to PSA Laterality: Right Is there a RIGHT LOWER EXTREMITY graft?: No Lower limb right segments: Common Femoral Is there a stent?: No At which location will this be performed?: [place] Referral to Home Health - at DISCHARGE [[id number] CPT(R)] As directed Process Instructions: Scheduling Instructions: Comments: DOCUMENTATION FOR VNA SERVICES (INCLUDING THOSE PATIENTS WITH MEDICARE COVERAGE REQUIRING HOME VNA SERVICES AND/OR HOSPICE SERVICES) PATIENT'S LOCATION: Gregory Fatima [address] [place] [address] [place] [id number] (home) Cell: Telephone Information: Resident Services Coordinator's Name: self In discussion with the attending physician, it is certified that this patient is under their care and that they, or a Nurse Practitioner,Clinical Nurse specialist or Physician Grain Unloader Machine who is working directly with them, had [...] CARE AGENCY: [facility] ([facility] [place] [facility]-is in [place] PHONE: [phone] FAX: [phone] Start of care: 24- 48 hours FOR [...] patient'sPCP: Lovely Vicente MD [address] [facility] [place] / [place] [address] All VNA agencies which cover the area [...] For any problems or questions please call [phone] ZELDA Smith, note teller Nurse Clinician For issues on weeknights after 5pm and weekends please call [phone] and ask for the Vascular Fellow ammonia solution preparer. documented in this encounter Medications at Time [...] RN - 07/20/2017 2:53 PM EST The patient/international representative has been provided a list of Home Health Agencies/DME vendors which serve their preferred geographic area. A letter describing our affiliations was reviewed with them and theywere educated about their right to choose where referrals are placed. Patient requests referral to [facility]. PHONE: [phone] FAX: [phone]. Expected date of discharge: 07/20/2017 . Referral routed to the Accounting Software Specialist for matching with agency/vendor and to provide any required information. Naty Pulliam RN - 07/20/2017 11:37 AM EST The patient/international representative has been provided a list of Home Health Agencies/DME vendors which serve their preferred geographic area. A letter describing our affiliations was reviewed with them and theywere educated about their right to choose where referrals are placed. Patient requests referral to [facility] ([facility] [place] [facility]- is in [facility] PHONE: [phone] FAX: [phone]. Expected date of discharge: 07/20/2017 . Referral routed to the Accounting Software Specialist for matching with agency/vendor and to provide any required information. Katina Pulliam RNmaintenance controller Janneth Lee MD - 07/20/2017 7:29 AM [...] HEALTH SERVICES MAIN OR Functional Status/Social Hx: Social History [...] -ISS -pain control Discussed with Vascular Fellow ammonia solution preparer. Chris Valadez MD PGY2 Pager [phone] documented in this encounter ED Notes Annita Reaves MD - 07/20/2017 3:15 PM EST Emergency Department Gregory Fatima is a 72 y.o. male who presents to [facility] with arterial thrombosis. History of Present Illness [...] Hospitalizations Within the Past 30 Days: [facility] 07/05/17 Anticipated Length Of Stay (If known): [...] Health/Prescription Coverage: Primary Insurance: MEDICARE Secondary Insurance: [employer] [facility] Prescription Coverage: See above Preferred Pharmacy: [facility] Other: N/A Primary Care Provider: Lovely Vicente MD [phone] Patient/Caregiver Goals of Treatment: Patient plans to return home when medically ready Potential Needs for Transition of Care: Rehab/SNF: N/A Home Health: [facility] ([facility] [place] [facility]-is in [place]) PHONE: [phone] FAX: [phone] DME: N/A Dialysis: N/A Community Resources: N/A Transportation: Patient family will transport Other: N/A Anticipated Barriers to Discharge/Special Considerations: None Plan: Patient plans to return home with home health services when medically ready A member of the Care Management team will continue to monitor progress, follow for continuity of care and assist with transition of care planning. Naty Pulliam, RN Pager: [phone] ED Triage - Rayna Weir RN - 07/20/2017 12:28 AM EST Pt transferred from [place] for blue right foot and painful toes. [...] Zulma Dolan MD [facility] [place], [place] [address] (Wo rk) 05/28/2022 Laboratory Appointment Lab 05/28/2022 Office Visit Cardiology Zulma Dolan MD [facility] [place] [address] Liz Poole PA [facility] [place] [address] 06/10/2022 Office Visit Dermatology Laura Scherer MD 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 APTT STAT 07/20/2017 2:25 AM Results f or this EST procedure are i n the results section. PROTHROMBIN TIME STAT 07/20/2017 2:25 AM Resul ts for this EST procedure are i n the results section. BASIC METABOLIC PANEL STAT 07/20/2017 2:25 AM Results for this (NON-FASTING) EST procedure are in the results section. documented in this encounter Results SCAN DOC: RAILROAD DINING CAR STEWARDESS (09/02/2017 12:00 AM EST) Narrative 09/02/2017 12:00 AM EST This result has an attachment that is no t available. Ordered by an unspecified provider. Scanning Provider MEDIA MGR SCAN EXT ORDR/RSLT POCT Glucose (07/20/2017 12:04 PM EST) P athologist Signature POC Glucose 189 65 - 199 [facility] mg/dL [facility] Comment: Supplemental [...] City/State/[place] [address] (ABNORMAL) Differential, Automated (07/20/2017 10:34 AM EST) Patholo gist Method Time Signature Neutrophils % 84.3 % [facility] Neutr Abs (ANC) 14.27 (H) 1.70 - [facility] 6.10 [facility] x10(3)/[facility] LABORATORY Lymphocytes % 5.6 % [facility] Lymphocytes Abs 1.0 0.9 - 3.2 [facility] x10(3)/[facility] LABORATORY Monocytes % 6.1 % [facility] Monocyte Abs 1.0 (H) 0.3 - 0.9 [facility] x10(3)/[facility] LABORATORY Eosinophils % 2.4 % [facility] Eosinophils Abs 0.4 0.0 - 0.4 [facility] x10(3)/[facility] LABORATORY Basophils % 0.5 % [facility] Basophils Abs 0.1 0.0 - 0.1 [facility] x10(3)/[facility] LABORATORY Immature Gran % 1.10 % [...] Gran Abs 0.19 (H) 0.00 - 0.04 x10(3)/[facility] LABORATORY Specimen Anatomical Collection Method Collection Time Receive d Time (Source) Location / / Volume Laterality Blood specimen 07/20/2017 10:34 7 (specimen) AM EST 10:39 AM EST Resulting Agency Comment Spec In Lab Arik Clement MD HEMATOLOGY ORDERABLES Performing Organization Address City/State/[place] [address] (ABNORMAL) Hemogram (07/20/2017 10:34 AM EST) Analysis Performed At Patho logist Time Signature WBC 17.0 (H) 4.0 - 9.5 [facility] x10(3[facility] LABORATORY RBC 3.70 (L) 4.58 [facility] x10(6)/[facility] LABORATORY Hemoglobin 10.8 (L) 13.7 - [facility] 16.5 gm/dL [facility] Hematocrit 33.4 (L) 40.5 - [facility] 48.5 % [facility] MCV 90.3 82.9 - [facility] 93.1 [facility] LABORATORY MCH 29.2 27.5 - [facility] 32.[address] [facility] MCHC 32.3 32.0 - [facility] 35.7 gm/dL [facility] Platelets 211 145 - 357 [facility] x10(3)/[facility] LABORATORY RDWSD 49.1 (H) 36.0 - [facility] 45.0 [facility] LABORATORY RDWCV 14.7 (H) 11.4 - [facility] 13.8 % [facility] MPV 9.2 7.6 - 12.9 [facility] nRBC % Auto 0.0 % [facility] nRBC Abs Auto 0.000 0.000 - [place] [facility] 0.000 [facility] x10(3)/[facility] LABORATORY Specimen Anatomical Collection Method Collection Time Receive d Time (Source) Location / / Volume Laterality Blood specimen 07/20/2017 10:34 7 (specimen) AM EST 10:39 AM EST Resulting Agency Comment Spec In Lab Arik Clement MD HEMATOLOGY ORDERABLES Performing Organization Address City/State/[place] [address] (ABNORMAL) APTT (07/20/2017 10:34 [...] Clement MD HEMATOLOGY ORDERABLES Performing Organization Address City/[facility]/[place] [address] POCT Glucose (07/20/2017 7:41 AM EST) athologist Signature POC Glucose 174 65 - 199 [facility] mg/dL [facility] Comment: Supplemental [...] [facility]/ZIP Code Phon e Number [address] JULIAN, legs, multiple levels (07/20/2017 7:33 AM EST) Component Value Ref Test Analysis Performed At Patholo gist Range Method Time Signature VB Text Department: Vascular Surgery Lab VASCUBASE Report Patient: [id number] (GREGORY FATIMA) CPT: 39478 ICD10: I75.021;I99.8 Referring Physician: ARIK CLEMENT ?? [...] Department: Vascular Surgery Lab VASCUBASE Report Patient: [id number] (GREGORY FATIMA) CPT: 99271 ICD10: I97.610;I99.8 Referring Physician: ARIK CLEMENT ?? [...] [facility] mg/dL [facility] Comment: Supplemental ranges: <140 mg/dL before meals <180 mg/dL all other times of the day Specimen Anatomical Collection Method Collection Time Receive d Time (Source) Location / / Volume Laterality Blood specimen 07/20/2017 3:41 AM 017 3:41 (specimen) EST AM EST Arik Clement MD POINT OF CARE TEST ORDERABLE S Performing Organization Address City/[facility]/ZIP [facility] [place] [address] Lactate, whole blood, send to lab (Leb/CGP) (07/20/2017 2:25 AM EST) athologist Signature Lactate WB 2.0 0.5 - 2.2 [facility] mmol/L [facility] Specimen Anatomical Collection Method Collection Time Receive d Time (Source) Location / / Volume Laterality Blood specimen Venous Draw / 07/20/2017 2:25 AM 2016 2:37 (specimen) Unknown EST AM EST Resulting Agency Comment Spec In Lab Zulma Samuel MD CHEMISTRY ORDERABLES Performing Organization Address City/[facility] Code Phon e Number [address] (ABNORMAL) APTT (07/20/2017 2:25 [...] Reaves MD HEMATOLOGY ORDERABLES Performing Organization Address City/[facility]/[place] [address] (ABNORMAL) Prothrombin Time (07/20/2017 [...] City/State/[place] [address] (ABNORMAL) Basic Metabolic Panel (non-fasting) (07/20/2017 2:25 AM EST) P athologist Signature Glucose Lvl 187 65 - 199 [facility] mg/dL [facility] Comment: Diabetes: [...] CENTER LABORATORY Comment: Specimen hemolyzed. Called by: [facility], Read back by: Chitra Orantes, Date/Time:07/20/17 [...] CENTER LABORATORY Estimated GFR 46 (L) >=60 [facility] Comment: The reported eGFR should be multiplied b y 1.2 for patients. The MDRD is not an appropriate measure o f renal function for patients with body mass extremes or in patients with acute kidney failure. http://[employer]/DHnkdep http://[employer]/DHMCnkf Specimen Anatomical Collection Method Collection Time Receive d Time (Source) Location / / Volume Laterality Blood specimen 07/20/2017 2:25 AM 017 2:33 (specimen) EST AM EST Resulting Agency Comment Spec In Lab Annita Reaves MD CHEMISTRY ORDERABLES Performing Organization Address City/State/ZIP Code Phon e Number [place] [id number] documented in this encounter [...] s 0-8,000 Units, Intravenous, BOLUS PER MIKKI RBUIO PROTOCOL, Starting on Wed07/20/17 at 0424, Until [...]
Routine documented in this encounter Care Teams Clinical Research Specialist Relationship Specialty Start Date End Date Lovely Vicente MD PCP - General 04/16/[address] [place] [address] documented as of this encounter
--- OUTSIDE RECORDS SUMMARY | 2022-04-20 08:16 | XMS_ITS | Encounter Summary ---
:1945 Author Organization [facility] [place] [address] Care Team Providers Name Role Phone Lovely Vicente MD Primary Care Provider Encounter Details Date Type Department Care Team Description 07/24/2017 Telephone Vascular Surgery [facility] [place] [address] [facility] [phone] VASCULAR SURGERY [place], [place] [address] (Wo rk) Social History Tobacco [...] Coumadin. ??He presented to [facility] on 07/20 with [...] [facility] [address] [address] (Wo rk) 05/28/2022 Laboratory Appointment Lab 05/28/2022 Office Visit Cardiology Zulma Dolan MD [facility] [place] [address] Liz Poole PA [facility] [place] [address] 06/10/2022 Office Visit Dermatology Laura Scherer MD [facility] DR [address] [place], [place] [address] (Wo rk) documented as of this encounter Visit Diagnoses Not on filedocumented in this encounter Care Teams Social Media Coordinator Relationship Specialty Start Date End Date Lovely Vicente MD PCP - General 04/16/[address] [place] [address] documented as of this encounter
--- OUTSIDE RECORDS SUMMARY | 2022-04-20 08:16 | XMS_ITS | Encounter Summary ---
:1945 Author Organization [facility] [place] [address] Care Team Providers Name Role Phone Lovely Vicente MD Primary Care Provider Reason for Visit Reason Onset Date Comments Other 07/22/2017 lovenox bridge Encounter Details Date Type Department Care Team Description 07/22/2017 Telephone Cardiology at [facility] Court Cadena RN Other (lovenox bridge) [place] [address] Social History Tobacco Use Types Packs/Day [...] 4:49 PM EST VAMSI Del Castillo, at [facility], called earlier today with a question re: lovenox bridge for this patient who was recently discharged from [facility] r/t a blood clot. Discharge note faxed to [facility] (fax# [phone], Ph#: [phone]) which contains instructions r/t lovenox bridge as follows: Anticoagulation: on lovenox bridge to therapeutic coumadin for AFib. Goal INR 2-3. At discharge INR=1.5. The lovenox injections can stop when INR >2, coumadin will continue indefinitely. documented in this encounter Plan of Treatment Upcoming Encounters Date Type Specialty Care Team Description 05/28/2022 Appointment Cardiology Zulma Dolan MD [facility] [place], [place] [address] (Wo rk) 05/28/2022 Laboratory Appointment Lab 05/28/2022 Office Visit Cardiology Zulma Dolan MD [facility] [place] [address] Liz Poole PA [facility] [place] [address] 06/10/2022 Office Visit Dermatology Laura Scherer MD [facility] [address] [place], [place] [address] (Wo rk) documented as of this encounter Visit Diagnoses Not on filedocumented in this encounter Care Teams Hard Candy Spinner Relationship Specialty Start Date End Date Lovely Vicente MD PCP - General 04/16/15 [facility] [address] [place] [address] documented as of this encounter
--- OUTSIDE RECORDS SUMMARY | 2022-04-20 08:16 | XMS_ITS | Encounter Summary ---
:1945 Author Organization [facility] [place] [address] Care Team Providers Name Role Phone Lovely Vicente MD Primary Care Provider Reason for Visit Reason Comments Follow-up Encounter Details Date Type Department Care Team Description 07/29/2017 Office Visit Cardiac Surgery at [facility] Yuan Retana MD S/P CABG x [address] [facility] [place] [address] CARDIOTHORACIC SURGERY [phone] [place], [place] [address] (Wo rk) Social History Tobacco [...] evaluation by vascular surgery. Yuan Retana MD [phone] documented in this encounter Plan of Treatment Upcoming Encounters Date Type Specialty Care Team Description 05/28/2022 Appointment Cardiology Zulma Dolan MD [facility] er [address] [place] [address] (Wo rk) 05/28/2022 Laboratory Appointment Lab 05/28/2022 Office Visit Cardiology Zulma Dolan MD [facility] [address] [address] Liz Poole PA [facility] [place] [address] 06/10/2022 Office Visit Dermatology Laura Scherer MD [facility] ER DR [address] [place], [place] [address] (Wo rk) documented as of this encounter Visit Diagnoses Diagnosis S/P CABG x 3 Postsurgical aortocoronary bypass status documented in this encounter Care Teams Hand Salter Relationship Specialty Start Date End Date Lovely Vicente MD PCP - General 04/16/[address] [place] [address] documented as of this encounter
--- OUTSIDE RECORDS SUMMARY | 2022-04-20 08:16 | XMS_ITS | Encounter Summary ---
:1945 Author Organization [facility] Address [facility] [place] [address] Care Team Providers Name Role Phone Lovely Vicente MD Primary Care Provider Encounter Details Date Type Department Care Team Description 07/29/2017 Transcribe Orders Laboratory Lovely Vicente, Coronary artery rupture; [facility] Medical Ischemic cardiomyopathy; [facility] [address] Atherosclerosis of [place] co ronary artery, angina presence unspecified, unspecified whether [place] or transplanted heart; [place], [place] [address] Essential hypertension, malignant; [id number] [place], [place] 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, unspecified halfway insulin use status [phone] [id number] Social History Tobacco Use Types Packs/Day Years [...] MD [facility] [place] [address] [place], [place] [address] (Wo rk) 05/28/2022 Laboratory Appointment Lab 05/28/2022 Office Visit Cardiology Zulma Dolan MD [facility] [place] [address] Liz Poole PA [facility] [place] [address] 06/10/2022 Office Visit Dermatology Laura Scherer MD [facility] ER [address] [place], [place] [address] (Wo rk) Scheduled Orders Name Type Priority Associated Diagnoses Order S chedule Lab Use Only, Fax Lab Routine Coronary arter y rupture Expected: 07/29/2017 Request Ischemic cardiom yopathy (Approximate), Atherosclerosis of [place] Ex jose: 07/29/2018 coronary artery, angina presence unspecified, unspecified whether [place] or transplanted heart Essential hypertension, malignant documented as of this encounter Results Uric acid (08/04/2017 12:55 PM EST) P athologist Signature Uric Acid 7.1 3.5 - 8.5 [facility]dL [facility] Specimen Anatomical Collection Method Collection Time Receive d Time (Source) Location / / Volume Laterality Blood specimen 08/04/2017 12:55 8 1:01 (specimen) PM EST PM EST Resulting Agency Comment Spec In Lab Lovely Vicente MD CHEMISTRY ORDERABLES Performing Organization Address City/State/[place] [address] (ABNORMAL) Hemogram (08/04/2017 12:55 PM EST) Analysis Performed At Patho logist Time Signature WBC 15.8 (H) 4.0 - 9.5 [facility] x[facility](3[facility] LABORATORY RBC 3.48 (L) 4.58 - [facility] 5.54 [facility] x10(6)/[facility] LABORATORY Hemoglobin 9.9 (L) 13.7 - [facility] 16.5 gm/dL [facility] Hematocrit 31.4 (L) 40.5 - [facility] 48.5 % [facility] MCV 90.2 82.9 - [facility] 93.1 [facility] LABORATORY MCH 28.4 27.5 - [place] RYAN 32.1 pg [facility] MCHC 31.5 (L) 32.0 - [facility] 35.7 gm/dL [facility] Platelets 310 145 - 357 [facility] x10(3)/[facility] LABORATORY RDWSD 51.8 (H) 36.0 - [place] RYAN 45.0 [facility] LABORATORY RDWCV 15.8 (H) 11.4 - [facility] 13.8 % [facility] MPV 8.9 7.6 - 12.9 [facility] LABORATORY nRBC % Auto 0.0 % [facility] nRBC Abs Auto 0.000 0.000 - [facility] 0.000 [facility] x10(3)/[facility] LABORATORY Specimen Anatomical Collection Method Collection Time Receive d Time (Source) Location / / Volume Laterality Blood specimen 08/04/2017 12:55 8 1:01 (specimen) PM EST PM EST Resulting Agency Comment Spec In Lab Lovely Vicente MD HEMATOLOGY ORDERABLES Performing Organization Address City/State/ZIP Code Phon e Number [place] [phone] (ABNORMAL) Comprehensive metabolic panel (non-fasting) (08/04/2017 12:55 PM EST) P athologist Signature Glucose Lvl 208 (H) 65 - 199 [facility] mg/dL [facility] Comment: Diabetes: >=200 mg/dL plus symp toms BUN 32 (H) 10 - 20 mg/dL [facility] Creatinine 1.58 (H) 0.80 - 1.50 mg/dL [facility] Sodium 136 135 - 145 mmol/L [facility] Potassium 5.5 (H) 3.5 - 5.0 mmol/L [facility] 10.5 mg/dL [facility] Total Protein 6.9 6.1 - [...] CENTER LABORATORY Estimated GFR 43 (L) >=60 [facility] Comment: The reported eGFR should be multiplied b y 1.2 for patients. The MDRD is not an appropriate measure o f renal function for patients with body mass extremes or in patients with acute kidney failure. http://RewardMe/DHnkdep http://RewardMe/DHMCnkf Specimen Anatomical Collection Method Collection Time Receive d Time (Source) Location / / Volume Laterality Blood specimen 08/04/2017 12:55 8 1:01 (specimen) PM EST PM EST Resulting Agency Comment Spec In Lab Lovely Vicente MD CHEMISTRY ORDERABLES Performing Organization Address City/State/[place] [address] (ABNORMAL) Hemoglobin A1c (08/04/2017 [...] Avg Gluc See note mg/dL [facility] Comment: Estimated [...] Additional resources are available on [facility] ADA website. Macario HAMMOND, Ruthann J, Deysi R, et al. ??Tr anslating the A1C assay into estimated average glucose values. ??Diabetes Care 2008:31(8):1983-3805. Specimen Anatomical Collection Method Collection Time Receive d Time (Source) Location / / Volume Laterality Blood specimen 08/04/2017 12:55 8 1:01 (specimen) PM EST PM EST Resulting Agency Comment Spec In Lab Lovely Vicente MD CHEMISTRY ORDERABLES Performing Organization Address City/State/[place] [address] (ABNORMAL) Prothrombin Time (08/04/2017 [...] City/State/[place] [address] documented in this encounter Visit Diagnoses Diagnosis Coronary artery rupture Acute myocardial infarction, unspecified site, episode of care unspecified Ischemic cardiomyopathy Other specified forms of chronic ischemi c heart disease Atherosclerosis of [place] coronary arter y, angina presence unspecified, unspecified whether [place] or transplanted heart Essential hypertension, malignant Diabetes mellitus due to underlying cond ition with diabetic nephropathy, unspecified halfway insulin use status documented in this encounter Care Teams Threshing Department Supervisor Relationship Specialty Start Date End Date Lovely Vicente MD PCP - General 04/16/[address] [place] [address] documented as of this encounter
--- OUTSIDE RECORDS SUMMARY | 2022-04-20 08:16 | XMS_ITS | Encounter Summary ---
:1945 [place] [address] Care Team Providers Name Role Phone Lovely Vicente MD Primary Care Provider Encounter Details Date Type Department Care Team Description 07/16/2017 Telephone Endocrinology at [facility] C Manuela Holliday, [facility] [place] [address] ENDOCRINOLOGY DEPT [phone] [place], [place] [address] (Wo rk) Social History Tobacco [...] Dolan MD [facility] [place], [place] [address] (Wo rk) 05/28/2022 Laboratory Appointment Lab 05/28/2022 Office Visit Cardiology Zulma Dolan MD [facility] [place] [address] Liz Poole PA [facility] [place] [address] 06/10/2022 Office Visit Dermatology Laura Scherer MD [facility] [address] [place], [place] [address] (Wo rk) documented as of this encounter Visit Diagnoses Not on filedocumented in this encounter Care Teams Linemarker Relationship Specialty Start Date End Date Lovely Vicente MD PCP - General 04/16/[address] [place] [address] documented as of this encounter
--- OUTSIDE RECORDS SUMMARY | 2022-04-20 08:16 | XMS_ITS | Encounter Summary ---
:1945 Author Organization [facility] [place] [address] Care Team Providers Name Role Phone Lovely Vicente MD Primary Care Provider Reason for Visit Reason Comments Foot Pain Auth/Cert Specialty Diagnoses / Procedures Referred By Contact Refer red To Contact Diagnoses Ischemic foot Procedures NAYE OBSVO Referral ID Status Reason Start Date Expiration Date Visits Requ ested Visits Authorized [id number] 1 1 Encounter Details Date Type Department Care Team Description 07/27/2017 Emergency 1 [facility] Lokesh Swenson MD [facility] [place] [address] Femoral artery pseudo-aneurysm, right; [facility] Tam Bauman MD [facility] [place] [address] [place] [address] Social History Tobacco Use Types Packs/Day [...] Gregory Fatima Patient Age: 72 y.o. Language: Cymro Race: White Ethnicity: Not nor Admit date: [...] please contact your inpatient physician through the [facility] Manager Inside . Issues after hours and on weekends [...] RLE critical limb ischemia, who presented to [facility] with worsening RLE pain. Pt post-op course after CABG was significant for paroxysmal Afib, and he was started on Coumadin given elevated [id number] score. He presented 2 weeks following that, on 07/20, with RLE pain/pallor andwas found to have critical limb ischemia in setting of subtherapeutic INR, pseudoaneurysm Rt CLERK and occlusion b/l ant tibial arteries. [...] in the last 7068 hours. Invalid input(s): [id number] Recent Labs 07/08/17 0400 07/07/17 0515 07/06/17 [...] (it was low at 1.[address] [facility]) 7. Use the tramadol if dilaudid or tylenol is not working 8. Stop taking the potassium supplement - your blood potassium level was elevated. Ask your doctors at future visits if this should be restarted. 9. Antibiotic for 5 days recommended by cardiothoracic surgery for chest wound drainage Follow-Up Appointments Vascular surgery as previously schedule Your Inpatient Doctor(s) at [facility]: CARLOS ALBERTO ROSALES MD General Instructions None Future Appointments and Orders Future Appointments Provider Department Dept Phone 07/30/2017 8:30 AM OSWALDO, THREE L Lab 3L [facility] [phone] 07/30/2017 9:40 AM Danette Maxwell APRN [facility] [place] [phone] 08/04/2017 1:00 PM Daniele Mooney [place] [facility] [place] [phone] 08/04/2017 2:15 PM Arik Clement MD [facility] Surgery [facility] [place] [phone] 08/11/2017 10:00 AM [facility] ROOM 2 XRay [facility] [place] [phone] Please go to Mri Specialist Area 3T ([place] Location). 08/11/2017 11:00 AM Yuan Retana MD Cardiac Surgery [facility] [place] [phone] 09/07/2017 3:00 PM LAB, THREE L Lab 3L [facility] [phone] 09/07/2017 4:00 PM Luz Prescott MD Endocrinology at [place] [phone] Discharge References/Attachments None documented in this encounter [...] (it was low at 1.[address] [facility]) 3. Use the tramadol if dilaudid or tylenol is not working 4. Stop taking the potassium supplement - your blood potassium level was elevated. Ask your doctors at future visits if this should be restarted. 5. Antibiotic for 5 days recommended by cardiothoracic surgery for chest wound drainage Follow-Up Appointments Vascular surgery as previously schedule Your Inpatient Doctor(s) at [facility]: CARLOS ALBERTO ROSALES MD documented in this [...] Gas) No results found for: PHART, PO2ART, PTJ4HTP Assessment/Plan: 72 y.o. male s/p CABG in [...] intervention: Education Nutrition Recommendations: Recommend continuation of [facility], CHO2 diet order Patient and denied need [...] Orders Diet Daily Healthy Menu Choices/Cardiac diet ([facility]-Diet) 60/ CHO counting level 2 Frequency: Effective Now Number of Occurrences: Until Specified Admit Weight: 83.92 kg Estimated body mass index is 28.13 kg/(m^2) as calculated from the following: Height as of this encounter: 172.7 cm (5' 8). Weight as of this encounter: 83.9 kg (185 lb). Hargill body weight: 68.4 kg (150 lb 12.7 [...] RLE critical limb ischemia, who presented to [facility] with worsening RLE pain. Visited with patient [...] spent >30 minutes (Day of Discharge Code 26878) involved in the final examination of the [...] Melanoma ID: 72 y.o. Male presents to [facility] with persistent pain b/l lower extremities History of Present Illness: HPI 72 y.o. male with PMH ASCVD s/p CABG (07/07/17), MARIA VICTORIA on CPAP QHS, HTN, HLD, DM2, with recent hospitalization for RLE critical limb ischemia, who presented to [facility] with worsening RLE pain. Pt post-op course after CABG was significant for paroxysmal Afib, and he was started on Coumadin given elevated [id number] score. He presented 2 weeks following that, on 07/20, with RLE pain/pallor andwas found to have critical limb ischemia in setting of subtherapeutic INR, pseudoaneurysm Rt CLERK and occlusion b/l ant tibial arteries. [...] performed by Manny Mcknight MD at [facility] OR ??? PRO CABG, ARTERIAL, SINGLE N/A 07/07/2017 @CABG, USING ARTERIAL GRAFT;SINGLE ARTERIAL GRAFT (WRVU 33.75) performed by Yuan Retana MD at [facility] ??? PRO CABG, ARTERY-VEIN, TWO N/A 07/07/2017 @CABG, TWO VENOUS GRAFTS & ARTERIAL GRAFT (WRVU 7.93) performed by Yuan Retana MD at [facility] ??? PRO COLONOSCOPY, REMV LESN, SNARE 01/16/2014 COLONOSCOPY, POLYPECTOMY, REMOVAL LESION BY SNARE performed by Nohemi Jaimes MD at [facility] ENDOSCOPY ??? PRO ENDOSCOPY W/VIDEO-ASST VEIN HARVEST, CABG Right 07/07/2017 ENDOSCOPIC HARVEST VEIN(S) FOR CABG (WRVU 0.31) performed by Yuan Retana MD at [facility] ??? PRO THYROIDECTOMY 03/28/2013 THYROIDECTOMY, TOTAL OR COMPLETE performed by Manny Mcknight MD at [facility] Prior To Admission Medications: [...] Procedure Component Value Units Date/Time Blood culture [[id number]] Collected: 07/09/1739 Lab Status: Final result Specimen: Blood from Arm, Right Updated: 07/14/17701 Blood Culture No growth at 5 days. Blood culture [[id number]] Collected: 07/09/170 Lab Status: Final result Specimen: [...] limb ischemia following CABG, who presented to [facility] ED from home with persistent B/L LE [...] continued Diet Daily Healthy Menu Choices/Cardiac diet ([facility]-Diet) 60/60/75 CHO counting level 2Cardiac, low salt, CHO 2 Discharge planning Pending improvement in pain control PT/OT/Speech PT ordered Lines/Access PIV Ocasio catheter No DVT/GI Prophylaxis Lovenox bridge to Coumadin, SCD. Code status Full Code Family PCP Lovely Vicente MD [phone] Attestation Please see my note for details [...] encounter Miscellaneous Notes Plan of Care - [place]-Joyce Damian, PT - 07/27/2017 3:26 PM EST [...] Anticipated Discharge Disposition: home with assist Pager: [phone] JOYCE KING, PT Inpatient Physical Therapy 2017 [...] a lovenox bridge. Mr. Fatima returns to [facility] ED tonight because of ongoing pain in [...] performed by Manny Mcknight MD at [facility] ??? PRO CABG, ARTERIAL, SINGLE N/A 07/07/2017 @CABG, USING ARTERIAL GRAFT;SINGLE ARTERIAL GRAFT (WRVU 33.75) performed by Yuan Retana MD at [facility] ??? PRO CABG, ARTERY-VEIN, TWO N/A 07/07/2017 @CABG, TWO VENOUS GRAFTS & ARTERIAL GRAFT (WRVU 7.93) performed by Yuan Retana MD at [facility] ??? PRO COLONOSCOPY, REMV LESN, SNARE 01/16/2014 COLONOSCOPY, POLYPECTOMY, REMOVAL LESION BY SNARE performed by Nohemi Jaimes MD at [facility] ENDOSCOPY ??? PRO ENDOSCOPY W/VIDEO-ASST VEIN HARVEST, CABG Right 07/07/2017 ENDOSCOPIC HARVEST VEIN(S) FOR CABG (WRVU 0.31) performed by Yuan Retana MD at [facility] ??? PRO THYROIDECTOMY 03/28/2013 THYROIDECTOMY, TOTAL OR COMPLETE performed by Manny Mcknight MD at [facility] MEDICATIONS: No current facility-administered [...] Cardiology Zulma Dolan MD [facility] [place], [place] [address] (Wo rk) 05/28/2022 Laboratory Appointment Lab 05/28/2022 Office Visit Cardiology Zulma Dolan MD [facility] [place] [address] Liz Poole PA [facility] [place] [address] 06/10/2022 Office Visit Dermatology Laura Scherer MD [facility] [address] [facility] [place], [place] [address] (Wo rk) documented as of [...] section. TYPE AND SCREEN STAT 07/27/2017 12:53 ([facility]/CGP/SHANDA) AM EST BASIC METABOLIC PANEL STAT 07/27/2017 12:53 Re sults for this (NON-FASTING) AM EST procedure are in the results section. documented in this encounter Results POCT Glucose (07/27/2017 11:53 AM EST) P athologist Signature POC Glucose 175 65 - 199 [facility] mg/dL [facility] Comment: Supplemental ranges: <140 mg/dL before meals <180 mg/dL all other times of the day Specimen Anatomical Collection Method Collection Time Receive d Time (Source) Location / / Volume Laterality Blood specimen 07/27/2017 11:53 8 (specimen) AM EST 11:53 AM EST Tam Bauman MD POINT OF CARE TEST ORDERABLE S Performing Organization Address City/State/[place] [address] Arterial Duplex Leg, Unil (07/27/2017 7:40 AM EST) Component Value Ref Test Analysis Performed At Patholo gist Range Method Time Signature VB Text Department: Vascular Surgery Lab VASCUBASE Report Patient: [id number] (GREGORY FATIMA) CPT: 71137 ICD10: I97.610;I72.4;Z09 Referring Physician: TAM BAUMAN ?? [...] Bauman MD VASCULAR ORDERABLES Performing Organization Address City/[facility]/ZIP Code Phon e Number VASCUBASE POCT Glucose (07/27/2017 6:51 AM EST) P athologist Signature POC Glucose 96 65 - 199 [facility] mg/dL [facility] Comment: Supplemental ranges: <140 mg/dL before meals <180 mg/dL all other times of the day Specimen Anatomical Collection Method Collection Time Receive d Time (Source) Location / / Volume Laterality Blood specimen 07/27/2017 6:51 AM 018 6:51 (specimen) EST AM EST Tam Bauman MD POINT OF CARE TEST ORDERABLE S Performing Organization Address City/[facility]/ZIP [facility] Phon e Number [address] ABORH Recheck Status (07/27/2017 12:53 AM EST) Patholo gist Method Time Signature ABORH Type Completed [facility] LABORATORY Specimen Anatomical Collection Method Collection Time Receive d Time (Source) Location / / Volume Laterality Blood specimen 07/27/2017 12:53 8 (specimen) AM EST 12:58 AM EST Resulting Agency Comment Spec In Lab Angela Swenson MD BLOOD BANK ORDERABLES Performing Organization Address City/[facility]/[place] [address] Gold Tube HOLD (07/27/2017 12:53 AM EST) P athologist Signature Gold Hold Sample in [facility]. [facility] Specimen Anatomical Collection Method Collection Time Receive d Time (Source) Location / / Volume Laterality Blood specimen Venous Draw / 07/27/2017 12:53 07/27/19 18 1:01 (specimen) Unknown AM EST AM EST Angela Swenson MD CHEMISTRY ORDERABLES Performing Organization Address City/State/[place] [address] (ABNORMAL) Differential, Automated (07/27/2017 12:53 AM EST) Patholo gist Method Time Signature Neutrophils % 75.0 % [facility] Neutr Abs (ANC) 11.30 (H) 1.70 - [facility] 6.10 [facility] x10(3)/[facility] LABORATORY Lymphocytes % 9.9 % [facility] Lymphocytes Abs 1.5 0.9 - 3.2 [facility] x10(3)/[facility] LABORATORY Monocytes % 8.6 % [facility] Monocyte Abs 1.3 (H) 0.3 - 0.9 [facility] x10(3)/[facility] LABORATORY Eosinophils % 4.8 % [facility] Eosinophils Abs 0.7 (H) 0.0 - 0.4 [facility] x10(3)/[facility] LABORATORY Basophils % 0.8 % [facility] Basophils Abs 0.1 0.0 - 0.1 [facility] x10(3)/[facility] LABORATORY Immature Gran % 0.90 [...] Abs 0.13 (H) 0.00 - 0.04 x10(3)/[facility] LABORATORY Specimen Anatomical Collection Method Collection Time Receive d Time (Source) Location / / Volume Laterality Blood specimen 07/27/2017 12:53 8 1:00 (specimen) AM EST AM EST Resulting Agency Comment Spec In Lab Angela Swenson MD HEMATOLOGY ORDERABLES Performing Organization Address City/State/[place] [address] (ABNORMAL) Hemogram (07/27/2017 12:53 AM EST) Analysis Performed At Patho logist Time Signature WBC 15.0 (H) 4.0 - 9.5 [facility] LABORATORY RBC 3.59 (L) 4.58 - [facility] 5.54 [facility] x10(6)/[facility] LABORATORY Hemoglobin 10.3 (L) 13.7 - [facility] 16.5 gm/dL [facility] Hematocrit 32.6 (L) 40.5 - [facility] 48.5 % [facility] MCV 90.8 82.9 - [facility] 93.1 [facility] LABORATORY MCH 28.7 27.5 - [facility] RYAN 32.1 pg [facility] MCHC 31.6 (L) 32.0 - [facility] 35.7 gm/dL [facility] Platelets 322 145 - 357 [facility] x10(3)/[facility] RDWSD 48.7 (H) 36.0 - [facility] RYAN 45.0 [facility] LABORATORY RDWCV 14.7 (H) 11.4 - [facility] RYAN 13.8 % [facility] MPV 8.9 7.6 - 12.9 [facility] LABORATORY nRBC % Auto 0.0 % [facility] LAB[facility] nRBC Abs Auto 0.000 0.000 - [facility] RYAN 0.000 [facility] x10(3)/[facility] LABORATORY Specimen Anatomical Collection Method Collection Time Receive d Time (Source) Location / / Volume Laterality Blood specimen 07/27/2017 12:53 8 1:00 (specimen) AM EST AM EST Resulting Agency Comment Spec In Lab Angela Swenson MD HEMATOLOGY ORDERABLES Performing Organization Address City/State/[place] [address] Antibody screen (07/27/2017 12:53 AM EST) Patholo gist Method Time Signature Ab Screen Negative [facility] LABORATORY Expires at 07/30/2017 KATALINA ZHAORYAN [id number] on: [facility] Specimen Anatomical Collection Method Collection Time Receive d Time (Source) Location / / Volume Laterality Blood specimen 07/27/2017 12:53 8 (specimen) AM EST 12:58 AM EST Resulting Agency Comment Spec In Lab Angela Swenson MD BLOOD BANK ORDERABLES Performing Organization Address City/[facility]/[place] [address] ABO/Rh Typing (07/27/2017 12:53 AM EST) P athologist Signature ABORh Type O Pos [facility] Specimen Anatomical Collection Method Collection Time Receive d Time (Source) Location / / Volume Laterality Blood specimen 07/27/2017 12:53 8 (specimen) AM EST 12:58 AM EST Resulting Agency Comment Spec In Lab Angela Swenson MD BLOOD BANK ORDERABLES Performing Organization Address City/[facility] [place] [address] (ABNORMAL) Prothrombin Time (07/27/2017 [...] City/State/[place] [address] (ABNORMAL) Basic Metabolic Panel (non-fasting) (07/27/2017 12:53 AM EST) athologist Signature Glucose Lvl 95 65 - 199 [facility] mg/dL [facility] Comment: Diabetes: >=200 mg/dL plus symp toms BUN 37 (H) 10 - 20 mg/dL [facility] LABORATORY Creatinine 1.49 0.80 - 1.50 mg/dL [facility] [...] or in patients with acute kidney failure. 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
Routine documented in this encounter Care Teams Double Needle Stitcher Relationship Specialty Start Date End Date Lovely Vicente MD PCP - General 04/16/15 [facility] [address] [facility] [address] [place] [address] documented as of this encounter
--- OUTSIDE RECORDS SUMMARY | 2022-04-20 08:16 | XMS_ITS | Encounter Summary ---
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 PRO CABG, ARTERIAL, SINGLE N/A 07/07/2017 @CABG, USING ARTERIAL GRAFT;SINGLE ARTERIAL GRAFT (WRVU 33.75) performed by Yuan Retana MD at [facility] MAIN OR ??? PRO CABG, ARTERY-VEIN, TWO N/A 07/07/2017 @CABG, TWO VENOUS GRAFTS & ARTERIAL GRAFT (WRVU 7.93) performed by Yuan Retana MD at [facility] MAIN OR ??? PRO COLONOSCOPY, REMFlash MOCK, SNARE 01/16/2014 COLONOSCOPY, POLYPECTOMY, REMOVAL LESION BY SNARE performed by Nohemi Jaimes MD at [facility] ENDOSCOPY ??? PRO ENDOSCOPY W/VIDEO-ASST VEIN HARVEST, CABG Right 07/07/2017 ENDOSCOPIC HARVEST VEIN(S) FOR CABG (WRVU 0.31) performed by Yuan Retana MD at [facility] MAIN OR ??? 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 Hank Zhang Vascular Surgery, PGY2 Pager #[phone] Associated attestation - Arik Clement MD - [...] Dolan MD [facility] [place], [place] [address] (Wo rk) 05/28/2022 Laboratory Appointment Lab 05/28/2022 Office Visit Cardiology Zulma Dolan MD [facility] [place] [address] Liz Poole PA [facility] [place] [address] 06/10/2022 Office Visit Dermatology Laura Scherer MD [facility] [address] [place], [place] [address] (Wo rk) documented as of [...] Department: Vascular Surgery Lab VASCUBASE Report Patient: [id number] (GREGORY FATIMA) CPT: 00242 ICD10: I82.541 Referring Physician: TAMIKO JIMÉNEZ ?? [...] / Volume Laterality 08/04/2017 1:08 PM EST Tamiok Jiménez MD VASCULAR ORDERABLES Performing Organization Address City/State/ZIP Code Phon e Number VASCUBASE POCT Glucose (07/29/2017 2:28 PM EST) P athologist Signature POC Glucose 128 65 - 199 [facility] mg/dL [facility] [...] Address City/State/ZIP Code Phon e Number [address] (ABNORMAL) D-Dimer, Quantitative (07/29/2017 2:15 PM EST) [facility] [place] Method Time Signature D-Dimer, Quant 1,699 (H) 0 - 500 [facility] FEU ng/ml [facility] [...] Organization Address City/State/Z[place] [address] (ABNORMAL) Differential, Automated (07/29/2017 2:15 PM EST) [facility] [place] Method Time Signature Neutrophils % 82.5 % [facility] LABORATORY Neutr Abs (ANC) 10.21 (H) 1.70 - [facility] 6.10 [facility] x10(3)/[facility] L LABORATORY Lymphocytes % 7.1 % [facility] LABORATORY Lymphocytes Abs 0.9 0.9 - 3.2 [facility] x10(3)/[facility] LABORATORY Monocytes % 6.5 % [facility] LABORATORY Monocyte Abs 0.8 0.3 - 0.9 [facility] x10(3)/[facility] LABORATORY Eosinophils % 2.7 % [facility] LABORATORY Eosinophils Abs 0.3 0.0 - 0.4 [facility] x10(3)/[facility] LABORATORY Basophils % 0.6 % [facility] LABORATORY Basophils Abs 0.1 0.0 - 0.1 [facility] x10(3)/[facility] LABORATORY Immature [...] Gran Abs 0.08 (H) 0.00 - 0.04 x10(3)/[facility] LABORATORY Specimen Anatomical Collection Method Collection Time Receive d Time (Source) Location / / Volume Laterality Blood specimen 07/29/2017 2:15 PM 018 2:36 (specimen) EST PM EST Resulting Agency Comment Spec In Lab Tamiko Jiménez MD HEMATOLOGY ORDERABLES Performing Organization Address City/State/[place] [address] (ABNORMAL) Hemogram (07/29/2017 2:15 PM EST) Analysis Performed At Patho logist Time Signature WBC 12.4 (H) 4.0 - 9.5 [facility] x10(3)/[facility] LABORATORY RBC 4.17 (L) 4.58 - [facility] 5.54 [facility] x10(6)/[facility] LABORATORY Hemoglobin 12.1 (L) 13.7 - [facility] 16.5 gm/dL [facility] LABORATORY Hematocrit 38.1 (L) 40.5 - [facility] 48.5 % [facility] LABORATORY MCV 91.4 82.9 - [facility] 93.1 [facility] LABORATORY MCH 29.0 27.5 - [facility] 32.1 pg [facility] LABORATORY MCHC 31.8 (L) 32.0 - [facility] RYAN 35.7 gm/dL [facility] LABORATORY Platelets 204 145 - 357 [facility] x10(3)/[facility] LABORATORY RDWSD 50.5 (H) 36.0 - [facility] 45.0 [facility] LABORATORY RDWCV 15.3 (H) 11.4 - [facility] RYAN 13.8 % [facility] LABORATORY MPV 9.4 7.6 - 12.9 [facility] LABORATORY nRBC % Auto 0.0 % [facility] LABORATORY nRBC Abs Auto 0.000 0.000 - [facility] 0.000 [facility] x10(3)/[facility] LABORATORY Specimen Anatomical Collection Method Collection Time Receive d Time (Source) Location / / Volume Laterality Blood specimen 07/29/2017 2:15 PM 018 2:36 (specimen) EST PM EST Resulting Agency Comment Spec In Lab Tamiko Jiménez MD HEMATOLOGY ORDERABLES Performing Organization Address City/State/[place] [address] (ABNORMAL) Prothrombin Time (07/29/2017 2:15 PM EST) P athologist Signature PT 24.4 (H) 11.8 - 14.0 [facility] LABORATORY INR 2.2 (H) 0.9 - 1.1 [facility] [...] City/State/ZIP Code Phon e Number [place] [id number] Arterial Duplex Leg, Unil (07/29/2017 11:50 AM EST) Component Value Ref Test Analysis Performed At [facility] Range Method Time Signature VB Text Department: Vascular Surgery Lab VASCUBASE Report Patient: [id number] (GREGORY FATIMA) CPT: 12605 ICD10: Z09;I97.610 Referring Physician: TAMIKO JIMÉNEZ ?? [...] Department: Vascular Surgery Lab VASCUBASE Report Patient: [id number] (GREGORY FATIMA) CPT: 14076 ICD10: I82.441 Referring Physician: TAMIKO JIMÉNEZ ?? [...] he calf. Notification: Marquis Pathak MD (pager #[phone]) was notif ied of the preliminary findings. [...] documented in this encounter Care Teams Marketing Data Specialist Relationship Specialty Start Date End Date Lovely Vicente MD PCP - General 04/16/[address] [place] [address] [address] [place] [address] documented as of this encounter
--- OUTSIDE RECORDS SUMMARY | 2022-04-20 08:17 | XMS_ITS | Encounter Summary ---
:1945 Author Organization [facility] [place] [address] Care Team Providers Name Role Phone Lovely Vicente MD Primary Care Provider Encounter Details Date Type Department Care Team Description 07/08/2017 Orders Only [facility] [place] [address] Social History Tobacco Use Types Packs/Day [...] Dolan MD [facility] [address] [place], [place] [address] (Wo rk) 05/28/2022 Laboratory Appointment Lab 05/28/2022 Office Visit Cardiology Zulma Dolan MD [facility] [place] [address] Liz Poole PA [facility] [place] [address] 06/10/2022 Office Visit Dermatology Laura Scherer MD [facility] ER DR [address] [place] [address] (Wo rk) documented as of this encounter [...] Mccollum ? (Age): 1945(72y) Med Rec#: ? [id number] ?Sex: ?M ? Site Loc: ? Ht / Wt: ??(cm)/ (kg) ? Pt. Loc: ? Study Date: ?? 07/07/2017 ?Pt. Type: Tape: ? Referring: Yuan Retana Reading: Yifan Perez MD ([id number]) Performing: Yifan Perez MD ([id number]) Diagnosis: SUMMARY: 1. Intraoperative AVELINO performed at the [facility] of Dr. [...] ? Mid-Inferior ?Hypokinetic ? Mid-Inferoseptal ?Hypokinetic ? [place]-Septal ? Hypokinetic ? [place]-Anterior ? Hypokinetic ? [place]-Lateral ?Hypokinetic ? [place]-Inferior ? Hypokinetic ? [place]-Tip ?Not Seen ? This report has been electronically sign ed by: _ Yifan Perez MD ? 07/08/2017 12 :25:18 Images reviewed and interpretation verif ied [facility] Cardiac Ultrasound Laboratory Procedure Note Yifan Perez MD - 07/08/2017Formatt ing of this note might be different from the original. Procedure: Transesophageal Echocardiogra m Patient: NATALYA MCBRIDE(Age): [birth year]72y) Med Rec#: [id number] Sex: M Site Loc: Ht / Wt: (cm)/ (kg) Pt. Loc: Study Date: 07/07/2017 Pt. Type: Tape: Referring: Yuan Retana Reading: Yifan Perez MD ([id number]) Performing: Yifan Perez MD ([id number]) Diagnosis: SUMMARY: 1. [facility] [...] Hypokinetic Mid-Posterolateral Hypokinetic Mid-Inferior Hypokinetic Mid-Inferoseptal Hypokinetic [place]-Septal Hypokinetic [place]-Anterior Hypokinetic [place]-Lateral Hypokinetic [place]-Inferior Hypokinetic [place]-Tip Not Seen This report has been electronically sign ed by: _ Yifan Perez MD 07/08/2017 12:25:18 Images reviewed and interpretation elvie hwang [facility] Cardiac Ultrasound Laboratory Unknown ECHO ORDERABLES documented in this encounter Visit Diagnoses Not on filedocumented in this encounter Care Teams Chief Transfer And Pumphouse Operator Relationship Specialty Start Date End Date Lovely Vicente MD PCP - General 04/16/[address] [place] [address] documented as of this encounter
--- OUTSIDE RECORDS SUMMARY | 2022-04-20 08:17 | XMS_ITS | Encounter Summary ---
:1945 Author Organization [facility] [place] [address] Care Team Providers Name Role Phone Lovely Vicente MD Primary Care Provider Reason for Referral Consultation (Routine) - Closed Specialty Diagnoses / Referred By Contact Referred To Contact Procedures Cardiac Rehabilitation Diagnoses S/P CABG x 3 Yuan Webber, Cardiac Rehab, [address] [place] CARDIOTHORACIC [address] [place] [address] Referral ID Status Reason Start Date Expiration Date Visits V isits Requested Authorized [id number] Closed Consult, 07/14/2017 01/10/2018 36 36 Test & Treat Reason for Visit Auth/Cert Specialty Diagnoses / Procedures Referred By Contact Refer red To Contact Diagnoses STEMI (ST elevation myocardial infarction) NSTEMI STEMI Procedures CARDIAC CATHETERIZATION NAYE IPI Referral ID Status Reason Start Date Expiration Date Visits Requ ested Visits Authorized [id number] 1 1 Encounter Details Date Type Department Care Team Description 07/05/2017 - Hospital Encounter Cardiac Special Daphne Shahid MD [facility] [place] [address] Non-ST elevation myocardial infarction ( NSTEMI); 07/14/2017 Care Unit Yuan Preciado MD [facility] [place] [address] S/P CABG x 3 [place] [id number] Social History Tobacco Use Types Packs/Day Years [...] , @ 1:20p Patient to follow-up with Foot Doctor/heart failure team in one week. An appointment will be made for you. You may call [phone] Patient to follow-up with Cardiac Surgery, Dr. Yuan Webber, in ~ 4 weeks with CXR, EKG. Inpatient Provider Contact Information: [facility] Section of [place]iac [place] [facility] [place] [address] FAX [phone] Discharge Diagnoses (Hospital Problems) Primary Diagnoses: CAD [...] 33.75) performed by Yuan Webber MD at [facility] MAIN OR ??? PRO CABG, ARTERY-VEIN, TWO N/A 07/07/2017 @CABG, TWO VENOUS GRAFTS & ARTERIAL GRAFT (WRVU 7.93) performed by Yuan Webber MD at [facility] MAIN OR ??? PRO COLONOSCOPY, REMV LESN, SNARE 01/16/2014 COLONOSCOPY, POLYPECTOMY, REMOVAL LESION BY SNARE performed by Nohemi Jaimes MD at [facility] ENDOSCOPY ??? PRO ENDOSCOPY W/VIDEO-ASST VEIN HARVEST, CABG Right 07/07/2017 ENDOSCOPIC HARVEST VEIN(S) FOR CABG (WRVU 0.31) performed by Yuan Webber MD at [facility] MAIN OR ??? PRO THYROIDECTOMY 03/28/2013 THYROIDECTOMY, TOTAL OR COMPLETE performed by Manny Mcknight MD at [facility] MAIN OR Prior To Admission Medications Prescriptions Prior to Admission Medication Sig Dispense Refill Last Dose ??? levothyroxine (SYNTHROID) 175 mcg Tablet Take 1 tablet by mouth daily. 90 tablet 3 07/05/2017 [id number] ??? ascorbic acid, vitamin C, (VITAMIN C) [...] hospital and ruled infor non-ST segment elevation HI. This almost certainly represents the residual of [...] Course: Gregory Hoang was admitted to [facility] on 07/05/2017 via the Cardiology Service. During his hospital course, he was taken emergently to the cathead operator for an ongoing STEMI. An IABP [...] not take or discontinue any prescription or llss-psk-wjtjimh medications without asking your doctor or pharmacist [...] day to have your insulin doses adjusted. [facility] Endocrine clinic office [...] Yuan Webber and/or the Cardiac Surgery Phys[place] Mail Carrier Team may be reached at . Weight: [...] Dr. Yuan Webber. You may use a [place] Track or treadmill but avoid any [...] with the surgeon. Do not ride motorcycles, Kadmon's tractors or horses. Avoid the use of [...] should resume a low fat, low cholesterol, [place] Heart Association Diet/Diabetic diet. Driving: No driving [...] , @ 1:20p Patient to follow-up with Foot Doctor/heart failure team in one week. Appointment will be made for you. You may call [phone] Patient to follow-up with Cardiac Surgery, Dr. Yuan Webber, in ~ 4 weeks with CXR, EKG. Cardiac Rehabilitation: Gregory Hoang was seen today regarding participation in the outpatient Phase 2 Cardiac Rehabilitation at [facility]. The patient agrees to a referral to this program. The referral will be sent at discharge and the patient should be contacted by the Program within 1- 2 weeks from discharge. ?? Future Appointments and Orders Future Appointments Provider Department Dept Phone 09/07/2017 3:00 PM LAB, THREE L Lab 3L [facility] [phone] 09/07/2017 4:00 PM Luz Prescott MD Endocrinology at [facility] [phone] Future Orders Complete By Expires EKG 12 Lead [EKG1 Custom] 08/14/2017 02/13/2018 Process Instructions: Scheduling Instructions: Questions: Which location will this be performed?: [facility] Is a rhythm strip needed?: No If EKG Reason is Pre-op Evaluation, indicate diagnosis for surgery.: XR Chest PA & Lateral (Generic) [03705 [id number] Custom] 08/14/2017 02/13/2018 Process Instructions: Scheduling Instructions: Questions: Where will study be performed?: [facility] Portable exam?: Reason for exam and clinical history: CABG x 3 Other pertinent information: Stat read required?: Date of injury if applicable: Requested Time: Referral to Cardiac Rehab [[id number] Custom] As directed Process Instructions: If no progress note charted, please enter Clinical details in comments. Scheduling Instructions: Questions: My question or request is: s/p CABG. Cardiac rehab at [facility] Referral to Home Health - at DISCHARGE [RDH9056 CPT(R)] As directed Process Instructions: Scheduling Instructions: Comments: DOCUMENTATION FOR VNA SERVICES (INCLUDING THOSE PATIENTS WITH MEDICARE COVERAGE REQUIRING HOME VNA SERVICES AND/OR HOSPICE SERVICES) PATIENT'S LOCATION: Gregory Hoang [address] [place] [address] [place] [id number] (home) Telephone Information: Players Club Representative's Name: self In discussion with the attending physician, it is certified that this patient is under their care and that they, or a Nurse Practitioner, or Physician [place] Mail Carrier who is working directly with them, had [...] HEALTH AGENCY: [facility] ([facility] [place] [employer]-is in [place]) PHONE: [phone] FAX: [phone] RN orders: Cardiopulmonary assessment, incisional assessment, assess vital signs, assessment of rehab progress, medication management and effectiveness, home safety evaluation. Please draw INR if indicated and send result to:Dr Vicente [phone] PT ORDERS: Continue rehab for endurance, gait stability and strength with mobility and transfers. Home safety evaluation. Home exercise program if appropriate. Start of Care Date:24-48 hours after discharge SPECIAL INSTRUCTIONS: For any follow up questions, needs, or issues please call the Cardiac Surgery Office at [phone] FOR MEDICARE ONLY: (please delete this section [...] OR AFTER 07/17/2017 Signed: Martha Teague APRN [facility] Section of Cardiac Surgery [facility] [place] [address] FAX [phone] Date: 07/14/2017 CC: MD Ivania Cr Betsy, PA [address] [place] [phone] documented in this encounter Discharge Instructions Discharge [...] day to have your insulin doses adjusted. [facility] Endocrine clinic office [...] not take or discontinue any prescription or isyf-qce-udybikl medications without asking your doctor or pharmacist [...] juice or regular (not diet) soda 6 WebActions small box of raisins 4 glucose tablets [...] day to have your insulin doses adjusted. [facility] Endocrine clinic office [...] Yuan Webber and/or the Cardiac Surgery [place] Mail Carrier Team may be reached at . ?? [...] Dr. Yuan Webber. You may use a [place] Track or treadmill but avoid any [...] with the surgeon. Do not ride motorcycles, [employer] tractors or horses. Avoid the use of [...] should resume a low fat, low cholesterol, [place] Heart Association Diet/Diabetic diet. ?? Driving: No [...] @ 1:20p ?? Patient to follow-up with Foot Doctor/heart failure team in one week. An appointment has been made for you, you can call [phone] ?? Patient to follow-up with Cardiac Surgery, Dr. Yuan Webber, in ~ 4 weeks with CXR, EKG. ? Cardiac Rehabilitation: Gregory Hoang??was seen today regarding participation in the outpatient Phase 2 Cardiac Rehabilitation at [facility]. ?? The patient agrees to a referral to this program.? The referral will be sent at discharge and the patient should be contacted by the Program within 1- 2 weeks from discharge. ? Future Appointments and Orders Future Appointments Provider Department Dept Phone ?? 09/07/2017 3:00 PM LAB, THREE L Lab 3L [facility] [phone] ?? 09/07/2017 4:00 PM Luz Prescott MD Endocrinology at [facility] [phone] Future Orders Complete By Expires ?? EKG 12 Lead [EKG1 Custom] 08/14/2017 02/13/2018 ?? Process Instructions: ? Scheduling Instructions: ? Questions: ? Which location will this be performed?: [facility] ?? Is a rhythm strip needed?: No ?? If EKG Reason is Pre-op Evaluation, indicate diagnosis for surgery.: ?? XR Chest PA & Lateral (Generic) [[id number] Custom] 08/14/2017 02/13/2018 ?? Process Instructions: ? Scheduling Instructions: ? Questions: ? Where will study be performed?: [facility] ?? Portable exam?: ?? Reason for exam and clinical history: CABG x 3 ?? Other pertinent information: ?? Stat read required?: ?? Date of injury if applicable: ?? Requested Time: ?? Referral to Cardiac Rehab [NTG565 Custom] As directed ? Process Instructions: ?? If no progress note charted, please enter Clinical details in comments. ?? Scheduling Instructions: ? Questions: ? My question or request is: s/p CABG. Cardiac rehab at [facility] ? Arrangements for VNA/home care: As [...] RN - 07/14/2017 2:34 PM EST The patient/office machines sales representative has been provided a list of Home Health Agencies/DME vendors which serve their preferred geographic area. A letter describing our affiliations was reviewed with them and theywere educated about their right to choose where referrals are placed. Patient requests referral to [facility] PHONE: [phone] FAX: [phone] Expected date of discharge: 07/14 Referral routed to the Company Accountant for matching with agency/vendor and to provide [...] day to have your insulin doses adjusted. [facility] Endocrine clinic office Kathie Carrera APRN [facility] Endocrinology Diabetes Management Pager [phone] 20 minutes of this 35 minute visit was spent with the patient in counseling on diabetes and treatment plan, reviewing all glucose and insulin data as well as relevant laboratory results with the patient, and coordination of care on the inpatient unit including nursing and primary team. Zulma Andres, RN - 07/14/2017 10:30 AM EST The patient/office machines sales representative has been provided a list of Home Health Agencies/DME vendors which serve their preferred geographic area. A letter describing our affiliations was reviewed with them and theywere educated about their right to choose where referrals are placed. Patient requests referral to : [facility] ([facility] [place] [facility]-is in [place] PHONE: [phone] FAX: [phone]. Expected date of discharge: 07/14/17 Referral routed to the Company Accountant for matching with agency/vendor and to provide [...] hours. If BG remains greater than 240, [id number] units (no more than three times) &??call [...] #6 s/p CABG X3. [facility], reports no symptoms but did drink some [...] Will continue to follow Katerin Azul APRN [facility] Endocrinology Diabetes Management Pager [phone] 15 minutes of this 25 minute visit [...] of infiltration/extravasation Discussed plan of care with INSEMINATION WORKER and RN. Elevate exrtemity and apply intermittent Warm compresses. Name of MD contacted Dr. Shaw Brown 07/13/2017 @ 0641 Name of RN contacted Ale Rangel RN Name of Pharmacist if consulted NA Name of Plastics MD ( if consulted) NA (Mandatory photo for infiltrations/ extravasations scoring a stage 2 or greater, but recommended forstage 1)( include measuring tape and identifier in the photo) WOOD SHINGLE ROOFER CARING FOR THIS PATIENT WILL CONTINUE TO [...] measuring tape and identifier in the photo) WOOD SHINGLE ROOFER CARING FOR THIS PATIENT WILL CONTINUE TO [...] regard to both infiltrates addressed by this entry writer.All of Mr. Hoang's responses were entirely appropriate. Images of infiltrates attached here. Martha Sharp APRN - 07/13/2017 8:01 AM EST Cardiac Surgery Progress Note: ID: [id number] 72 year old male POD#6 s/p CABGx3 [...] Dispo-CSCU, full code Signed: Martha Teague APRN Portilol Pope RN - 07/13/2017 6:50 AM EST [...] discharge. ?? I have met with the patient/office machines sales representative to discuss discharge planning needs. I have provided the [facility], Office of Care Management letter from the Banquet Line Cook pertaining to rehab referrals. I have also provided a letter describing our affiliations within the [facility] and educated them about their right to choose where referrals are placed. ?? I reviewed the different levels of rehab including SNF, swing, acute and LTAC with the patient/office machines sales representative. ?? The patient/office machines sales representative has been provided a list of facilities within their preferred geographic area. ?? I have requested that the patient/office machines sales representative provide at least three choices for referral. ?? The patient/office machines sales representative have requested referrals to: ?? 1. . ?? 2. [facility] ?? 3. More to be entered ?? Expected date of discharge: 07/14 Note routed to Company Accountant who will communicate referrals to facilities and [...] hours. If BG remains greater than 240, [id number] units (no more than three times) & [...] hours. If BG remains greater than 240, [id number] units (no more than three times) & call for new basal insulin orders. ??If less than 240 after two hours, give no insulin and resume prior schedule. Will continue to follow Katerin Patel. STACIE Azul [facility] Endocrinology Diabetes Management Pager [phone] 20 minutes of this 35 minute visit was spent with the patient in counseling on diabetes and treatment plan, reviewing all glucose and insulin data as well as relevant laboratory results with the patient, and coordination of care on the inpatient unit including nursing and primary team. Makayla Stevenson APRN - 07/12/2017 9:52 AM EST Cardiac Surgery Progress Note: ID: [id number] 72 year old male POD#5 s/p CABGx3 [...] 07/11/2017 7:18 PM EST Patient arrived from [facility]. VSS. MSI dressing pulled off with [...] hours. If BG remains greater than 240, [id number] units (no more than three times) & [...] AM EST Cardiac Surgery Progress Note: ID: [id number] 72 year old male POD#4 s/p CABGx3 [...] hours. If BG remains greater than 240, skxpyj19 units (no more than three times) & [...] AM EST Cardiac Surgery Progress Note: ID: [id number] 72 year old male POD#3 s/p CABGx3 [...] Gas) No results found for: PHART, PO2ART, JIH7SUJ Assessment/Plan: 72 year old male POD#3 s/p [...] Encounter Note Patient Name: Gregory Hoang : [id number] MR#: [id number] Admit Date: 07/05/2017 4:20 PM Hospital Day 4 days Narrative: Patient was sitting in chair, hugging heart pillow, opened his eyes, nodding to come into room Assessment: Patient was sleepy. Intervention and Outcome: Introduced dairy scientist services and patient reached his hand out in appreciation. Follow-up: Put In Beat Adjuster remains available for support. Time in [...] 10:45 AM EST Report given to staff air tactical officer to cover care Maddison Cee PA - 07/09/2017 9:00 AM EST Cardiac Surgery Progress Note: ID: [id number] 72 year old male POD#2 s/p CABGx3 [...] Surgeon on rounds. Signed: STEPHANIE Iqbal [facility] Section of Cardiac Surgery Date: 07/09/[address] [facility] - 07/09/2017 1:[address] [...] when IABP d/c'ed. Gretchen Carolina, PT Pager [phone] Maddison Cee PA - 07/08/2017 11:27 AM EST Cardiac Surgery Progress Note: ID: [id number] 72 year old male POD#1 s/p CABGx3 [...] Surgeon on rounds. Signed: STEPHANIE Iqbal [facility] Section of Cardiac Surgery Date: 07/08/2017 [...] interventions and documentation on the unit. NICK ESGAL MD 07/08/[address] [facility] - 07/08/2017 4:[address] [...] in place in R femoral. No hematoma. INFORMATION ASSURANCE ENGINEER- Intact Psych- Anxious Skin- Dry, no peripheral [...] intact. IABP in place in R femoral. INFORMATION ASSURANCE ENGINEER- Intact Psych- Anxious Skin- Dry, no peripheral [...] BP and blood sugars orders written. Daphne hSeikh MD - 07/06/2017 5:17 AM EST Inpatient [...] (pgr. [phone]) . CARDIOLOGY ATTENDING NOTE Patient: Gergory Hoang [...] note for details. DAPHNE SHAHID MD Pager [phone] Jet Mckenna MD - 07/05/2017 6:48 PM EST Preliminary Cardiac Catheterization Procedure Note: Procedure(s) performed: Left heart cath, IABP insertion Access: Right SUBWAY REPAIR SUPERVISOR-->8fr IABP A time-out was conducted prior [...] effect. Heparin gtt maintained. Pt transferred to cathead operator. documented in this encounter H&P Notes Daphne Shahid MD - 07/05/2017 6:08 PM EST CARDIOLOGY HISTORY & PHYSICAL EXAM Date of Admission: 07/05/2017 ( Hospital Day 0 days ) Responsible Attending: Daphne Shahid MD PCP: Lovely Vicente MD PCP#: [phone] Patient Active Problem List Diagnosis Code ??? [...] No significant valvular disease. Taken to the cathead operator urgently for ongoing STEMI. [facility] Labs: INR 1.0 WBC 5.88 Hgb [...] monitor I/O - s/p lasix in the cathead operator, redose to aim net neg 1L [...] - ISS - hold metformin - f/u [facility] #Home Meds - continue levothyroxine 175mcg - CPAP at night # Routine - DVT PPx: heparin drip - Diet: NPO - Code Status: FULL - Dispo: [facility] Cedric Bey MD Internal Medicine, PGY-2 Cardiology S1, Team Pager # [phone] CARDIOLOGY ATTENDING NOTE Patient: Gregory Hoang Date [...] amenable for PCI. DAPHNE SHAHID MD Pager [phone] documented in this encounter Miscellaneous Notes Consult Note - Daphne Shahid MD - 07/14/2017 11:46 AM EST Heart Failure Service Inpatient Consult Note Gregory Hoang Date of : 1945 Age: 72 y.o. Today's date: 07/14/17 PCP: Lovely Vicente MD BUILDING ADMIN: None Place of Service: [facility] Reason for Consult: Dr. Webber has requested [...] 33.75) performed by Yuan Webber MD at [facility] MAIN OR ??? PRO CABG, ARTERY-VEIN, TWO N/A 07/07/2017 @CABG, TWO VENOUS GRAFTS & ARTERIAL GRAFT (WRVU 7.93) performed by Yuan Webber MD at [facility] MAIN OR ??? PRO COLONOSCOPY, REMV LESN, SNARE 01/16/2014 COLONOSCOPY, POLYPECTOMY, REMOVAL LESION BY SNARE performed by Nohemi Jaimes MD at [facility] ENDOSCOPY ??? PRO ENDOSCOPY W/VIDEO-ASST VEIN HARVEST, CABG Right 07/07/2017 ENDOSCOPIC HARVEST VEIN(S) FOR CABG (WRVU 0.31) performed by Yuan Webber MD at [facility] MAIN OR ??? PRO THYROIDECTOMY 03/28/2013 THYROIDECTOMY, TOTAL OR COMPLETE performed by Manny Mcknight MD at [facility] MAIN OR Outpt Meds: Current [...] following studies: EKG 07/14/17: NSR 75 bpm, ARTISTS' MODEL anterior infarct, LAD CXR 07/11/17: FINDINGS: Sternotomy wires. The patient has been extubated, left chest tube removed, and [place]-Suzi catheter removed since the 07/07/2017 study. Atelectasis [...] was discussed with Zehra. Jaden Kelley MD Diabetes Clinical Manager Pager [phone] CARDIOLOGY ATTENDING NOTE Patient: Gregory Hoang Date [...] heart failure clinic. DAPHNE SHAHID MD Pager [phone] Plan of Care - Alden Chavarria, ELECTRONICS RESEARCH ENGINEER - 07/14/2017 11:35 AM EST Problem: [...] Discharge Disposition: home with assist Alden Chavarria, ELECTRONICS RESEARCH ENGINEER Pager: [phone] Inpatient Physical Therapy Problem: Acute Rehab Services [...] sit/sit to supine -- Bed Mobility Goal, [place] Level supervision required -- Bed Mobility Goal, [...] - 3 days -- Gait Training Goal, [place] Level supervision required -- Gait Training Goal, [...] days -- Transfer Training Goal, Activity Type dkc-wq-qpkas/msxxt-rb-qmp;rae-wt-lqjhq/apfnl-ud-dmv;toilet -- Transfer Train Goal, [place] Level supervision required -- Transfer Training Goal, [...] keeping present for 2 days per family. Planer Tailer noted of frustrations, house keeping sent to room. Patient offered showered twice, refused. at bedside, frustrated that shower not complete, informed that patient had refused several times. requesting to see CHARTERED FINANCIAL ANALYST, paged sent to Martha, will come to bedside (middle of consult). not willing to wait, Martha notified that family had gone home. Encouraged to come for morning rounds a t 8am. Diabetes team at bedside - insulin adjustments made. Call cabello in reach. Continue to monitor. PLAN MOVING FORWARD: Ambulate, dressing changes BID, Please change drsg at 4am per Martha CHARTERED FINANCIAL ANALYST request. INDIVIDUALIZED FALL PREVENTION INTERVENTIONS: Patient-specific fall [...] levels on the lower side, 60ml of [place] juice given after a FS of 80. [...] Conf 07/13/17 0502 Interdisciplinary Rounds/Family Conf Participants piano case and bench assembler;dietitian/nutrition services;nursing;occupational therapy;patient;pharmacy;physical therapy;physician Plan of Care [...] Anticipated Discharge Disposition: home with assist Pager: [phone] CLARISSA SEGAL, PT 07/12/2017 Physical Therapy Rehabilitation [...] to sit/sit to supine Bed Mobility Goal, [place] Level supervision required Bed Mobility Goal, Additional Goal adheres to psternal precautions for transfer Goal: Gait Training Goal Stand Alone Therapy Goal Outcome: Ongoing (Interventions Implemented as Appropriate) 07/12/17 1225 Gait Training Goal Gait Training Goal, Date Established 07/12/17 Gait Training Goal, Time to Achieve 2 - 3 days Gait Training Goal, [place] Level supervision required Gait Training Goal, Assist [...] 3 days Transfer Training Goal, Activity Type gsm-rq-fyrre/vdruh-mi-rjb;vzn-kx-jhjhx/uzkdo-lp-wqx;toilet Transfer Train Goal, [place] Level supervision required Transfer Training Goal, Additional Goal adheres to sternal precautions during transfer Consult Note - Octavia Vaughn RN - 07/12/2017 10:50 AM EST [facility] CARDIAC REHABILITATION Gregory Hoang was seen today regarding participation in the outpatient Phase 2 Cardiac Rehabilitation at [facility]. The patient agrees to a referral [...] IV site, amio to other piv and POWER DISTRIBUTION ENGINEER at bedside to help assess, IV [...] Outcome: Ongoing (Interventions Implemented as Appropriate) 07/11/17199907/11/17200907/12/17 [facility] Daily Care Interventions Self-Care Promotion [...] staff, he stood and marched in place. [place] weak, wanting to sit back down. Remained [...] Outcome: Ongoing (Interventions Implemented as Appropriate) 07/05/17 0872 Mutuality/Individual Preferences What Anxieties, Fears or Concerns [...] Health/Prescription Coverage: Primary Insurance: MEDICARE Secondary Insurance: [employer] [place] Prescription Coverage: yes [facility]erred [facility]acy[facility] Other: none Primary Care Provider: Lovely Vicente MD [phone] Patient/Caregiver Goals of Treatment:live and get my breath back Potential Needs for Transition of Care: Rehab[facility]SNF: [facility]; [facility] Home Health: NA DME: TBD Dialysis: na Community Resources: available Transportation: yes Other: none Anticipated Barriers to Discharge/Special Considerations: none Plan: Likely SNF Rehab before home A member of the Care Management team will continue to monitor progress, follow for continuity of care and assist with transition of care planning. ERLIN Weiss Pager: [phone] Consult Note - Katerin Azul RN - [...] of [facility] diabetes care. Diabetes History: Gregory Hoagn has had diabetes for . Current outpatient [...] patient W/E coverage, Dr. Jeane Tatum, pager [phone] Katerin Patel. STACIE Azul Endocrinology Diabetes Management Pager [phone] Plan of Care - Stephanie Godoy RN [...] Webber MD - 07/07/2017 6:27 PM EST [facility] Operative Note Patient Name: Gregory Hoang : [id number] MR#: [id number] Case Date: 07/07/2017 Surgeon: Surgeon(s) and Role: * Yuan Webber MD - Primary * Michael Drake PA - Physician City Mail Carrier * Linda Flores PA - Physician City Mail Carrier Preoperative diagnosis: 3VD Postoperative diagnosis: CAD, severe [...] Operative Note Patient Name: Gregory Hoang : [id number] MR#: [id number] Case Date: 07/07/2017 Surgeon: Surgeon(s) and Role: * Yuan Webber MD - Primary * Michael Drake PA - Physician City Mail Carrier * Linda Flores PA - Physician [place] Mail Carrier Preoperative diagnosis: 3VD Postoperative diagnosis: CAD, severe [...] major CV events such as , stroke, HI, repeat revascularization compared to PCI). In this [...] code status: Full Code Katty Davidjose, MS3 [facility] Cardiology S1 (Pager [phone]) Plan of Care - Emelia Ibarra RN [...] hospital and ruled infor non-ST segment elevation HI. This almost certainly represents the residual of [...] at [facility] ENDOSCOPY ??? PRO THYROIDECTOMY 03/28/2013 THYROIDECTOMY, TOTAL OR COMPLETE performed by Manny Mcknight MD at [facility] MAIN OR Social History: Social [...] with other involved physicians Yuan Webber MD [phone] Med Student Progress Note - Katty Hahn [...] major CV events such as , stroke, HI, repeat revascularization compared to PCI). In this [...] or BiPAP - s/p lasix in the cathead operator, was net -1.5L - s/p plavix [...] FULL - Dispo: CVCC Katty Hahn, M3 [facility] Cardiology S1 (Pager [phone]) Plan of Care - Stephanie Godoy RN [...] in urinal without difficulty. Lasix given in cathead operator, 1.4 L out at this time. [...] Dolan MD [facility] [address] [place], [place] [address] (Wo lissa) 05/28/2022 Laboratory Appointment Lab 05/28/2022 Office Visit Cardiology Zulma Dolan MD [facility] [place] [address] Liz Poole PA [facility] [place] [address] 06/10/2022 Office Visit Dermatology Laura Scherer MD [facility] [address] [place], [place] [address] (Wo rk) Scheduled Orders Name [...] procedure are i n the results section. TICKETING AGENT SCAN 07/15/2017 12:00 Res ults for [...] Routine 07/08/2017 4:00 Results f or this ([facility]/CG) AM EST procedure [...] Routine 07/06/2017 7:40 Results f or this ([facility]) PM EST procedure [...] section. TYPE AND SCREEN Routine 07/06/2017 12:00 ([facility]/SHANDA) PM EST APTT [...] Routine 07/06/2017 8:10 Results f or this ([facility]) AM EST procedure [...] Routine 07/05/2017 8:20 Results f or this ([facility]) PM EST procedure [...] Timed 07/05/2017 4:55 Results f or this ([facility]) PM EST procedure [...] 2017 EXAMINATION: XR CHEST PA AND LATERAL (ZebitIC) CLINICAL HISTORY: CABG x 3 TECHNIQUE: PA [...] Teague APRN IMG DX ORDERABLES SCAN DOC: TICKETING AGENT (07/15/2017 12:00 AM EST) Narrative 07/15/2017 [...] Signature POC Glucose 186 65 - 199 [facility] Comment: Supplemental [...] [place] [address] POCT Glucose (07/14/2017 7:52 AM EST) athologist Signature POC Glucose 126 65 - 199 [facility] Comment: Supplemental ranges: <140 mg/dL before meals <180 mg/dL all other times of the day Specimen Anatomical Collection Method Collection Time Receive d Time (Source) Location / / Volume Laterality Blood specimen 07/14/2017 7:52 AM 017 7:52 (specimen) EST AM EST Yuan Webber MD POINT OF CARE TEST ORDERABLE S Performing Organization Address City/State/[place] [address] (ABNORMAL) Prothrombin Time (07/14/2017 [...] Wilson APRN HEMATOLOGY ORDERABLES Performing Organization Address City/[facility] [place]/[place] [address] Potassium (07/14/2017 4:46 AM EST) athologist Signature Potassium 4.3 3.5 - 5.0 [facility] mmol/L [facility] Comment: Please note: ??Patients with WBC [...] Wilson APRN CHEMISTRY ORDERABLES Performing Organization Address City/[facility] [place] [address] POCT Glucose (07/14/2017 4:34 AM EST) athologist Signature POC Glucose 115 65 - 199 [facility] Comment: Supplemental ranges: <140 mg/dL before meals <180 mg/dL all other times of the day Specimen Anatomical Collection Method Collection Time Receive d Time (Source) Location / / Volume Laterality Blood specimen 07/14/2017 4:34 AM 017 4:34 (specimen) EST AM EST Yuan Webber MD POINT OF CARE TEST ORDERABLE S Performing Organization Address City/State/ZIP Code Phon e Number [place] [id number] POCT Glucose (07/13/2017 11:33 PM EST) athologist Signature POC Glucose 132 65 - 199 [place] mg/dL [facility] Comment: Supplemental [...] Address City/State/ZIP Code Phon e Number [address] POCT Glucose (07/13/2017 9:25 PM EST) athologist Signature POC Glucose 121 65 - 199 [place] mg/dL [facility] Comment: Supplemental [...] Address City/State/ZIP Code Phon e Number [address] POCT Glucose (07/13/2017 4:55 PM EST) athologist Signature POC Glucose 79 65 - 199 [place] mg/dL [facility] Comment: Supplemental ranges: <140 mg/dL before meals <180 mg/dL all other times of the day Specimen Anatomical Collection Method Collection Time Receive d Time (Source) Location / / Volume Laterality Blood specimen 07/13/2017 4:55 PM 017 4:55 (specimen) EST PM EST Yuan Webber MD POINT OF CARE TEST ORDERABLE S Performing Organization Address City/State/[place] [address] POCT Glucose (07/13/2017 11:16 AM EST) athologist Signature POC Glucose 163 65 - 199 [facility] Comment: Supplemental [...] Address City/State/ZIP Code Phon e Number [address] POCT Glucose (07/13/2017 8:07 AM EST) athologist Signature POC Glucose 96 65 - 199 [facility] Comment: Supplemental [...] Address City/State/ZIP Code Phon e Number [address] (ABNORMAL) Prothrombin Time (07/13/2017 [...] Organization Address City/State/[place] [address] (ABNORMAL) Basic Metabolic Panel (non-fasting) (07/13/2017 4:26 AM EST) athologist Signature Glucose Lvl 95 65 - 199 [facility] mg/dL [facility] Comment: Diabetes: [...] [facility] Estimated GFR 60 >=60 [facility] Comment: The reported eGFR should be multiplied b y 1.2 for patients. The MDRD is not an appropriate measure o f renal function for patients with body mass extremes or in patients with acute kidney failure. http://Bunndle.PathJump/DHnkdep http://The Influence/DHMCnkf Specimen Anatomical Collection Method Collection Time Receive d Time (Source) Location / / Volume Laterality Blood specimen 07/13/2017 4:26 AM 017 4:46 (specimen) EST AM EST Resulting Agency Comment Spec In Lab Makayla Wilson APRN CHEMISTRY ORDERABLES Performing Organization Address City/[facility] [place] [facility] [place]/ZIP Code Phon e Number [address] POCT Glucose (07/13/2017 3:52 AM EST) athologist Signature POC Glucose 93 65 - 199 [facility] mg/dL [facility] Comment: Supplemental [...] [place]/ZIP Code Phon e Number [address] POCT Glucose (07/13/2017 12:21 AM EST) athologist Signature POC Glucose 80 65 - 199 [place] mg/dL [facility] Comment: Supplemental [...] [place] [address] POCT Glucose (07/12/2017 8:22 PM EST) athologist Signature POC Glucose 119 65 - 199 [place] mg/dL [facility] Comment: Supplemental [...] Address City/State/ZIP Code Phon e Number [address] POCT Glucose (07/12/2017 4:02 PM EST) athologist Signature POC Glucose 114 65 - 199 [place] mg/dL [facility] Comment: Supplemental [...] Address City/State/ZIP Code Phon e Number [address] POCT Glucose (07/12/2017 11:28 AM EST) athologist Signature POC Glucose 164 65 - 199 [facility] mg/dL [facility] Comment: Supplemental [...] Address City/State/ZIP Code Phon e Number [address] POCT Glucose (07/12/2017 7:34 AM EST) athologist Signature POC Glucose 109 65 - 199 [facility] mg/dL [facility] Comment: Supplemental ranges: <140 mg/dL before meals <180 mg/dL all other times of the day Specimen Anatomical Collection Method Collection Time Receive d Time (Source) Location / / Volume Laterality Blood specimen 07/12/2017 7:34 AM 017 7:34 (specimen) EST AM EST Yuan Webber MD POINT OF CARE TEST ORDERABLE S Performing Organization Address City/State/[place] [address] (ABNORMAL) Basic Metabolic Panel (non-fasting) (07/12/2017 4:11 AM EST) P athologist Signature Glucose Lvl 92 65 - 199 [facility] mg/dL [facility] Comment: Diabetes: [...] or in patients with acute kidney failure. http://Bunndle.PathJump/DHnkdep http://Bunndle.PathJump/DHMCnkf Specimen Anatomical Collection Method Collection Time Receive d Time (Source) Location / / Volume Laterality Blood specimen 07/12/2017 4:11 AM 017 8:57 (specimen) EST AM EST Resulting Agency Comment Spec In Lab Makayla Wilson APRN CHEMISTRY ORDERABLES Performing Organization Address City/State/[place] [address] (ABNORMAL) Prothrombin Time (07/12/2017 [...] [place] STACIE HEMATOLOGY ORDERABLES Performing Organization Address City/[facility]/[place] [address] Potassium (07/12/2017 4:11 AM EST) athologist Signature Potassium 3.8 3.5 - 5.0 [facility] mmol/L [facility] Comment: Please note: ??Patients with WBC [...] Agency Comment Spec In Lab Makayla Dejesusfield SWITCH HOUSE OPERATOR CHEMISTRY ORDERABLES Performing Organization Address City/[facility]/[place] [address] POCT Glucose (07/12/2017 4:10 AM EST) athologist Signature POC Glucose 90 65 - 199 [facility] Comment: Supplemental [...] Address City/State/ZIP Code Phon e Number [address] POCT Glucose (07/11/2017 11:57 PM EST) athologist Signature POC Glucose 98 65 - 199 [facility] Comment: Supplemental [...] Address City/State/ZIP Code Phon e Number [address] POCT Glucose (07/11/2017 8:32 PM EST) athologist Signature POC Glucose 146 65 - 199 [facility]/dL [facility] Comment: Supplemental ranges: <140 mg/dL before meals <180 mg/dL all other times of the day Specimen Anatomical Collection Method Collection Time Receive d Time (Source) Location / / Volume Laterality Blood specimen 07/11/2017 8:32 PM 017 8:32 (specimen) EST PM EST Yuan Webber MD POINT OF CARE TEST ORDERABLE S Performing Organization Address City/State/[place] [address] XR Chest PA & [...] e xtubated, left chest tube removed, and Cheltenham-Suzi catheter removed since the study. Atelectasis at [...] e xtubated, left chest tube removed, and Chel[place]ham-Suzi catheter removed since the study. Atelectasis at [...] (H) 65 - 199 [place] mg/dL [facility] Comment: Supplemental [...] Address City/State/ZIP Code Phon e Number [address] POCT Glucose (07/11/2017 11:55 AM EST) athologist Signature POC Glucose 176 65 - 199 [place] mg/dL [facility] Comment: Supplemental [...] [place]/ZIP Code Phon e Number [address] POCT Glucose (07/11/2017 7:53 AM EST) athologist Signature POC Glucose 189 65 - 199 [place] mg/dL [facility] Comment: Supplemental ranges: <140 mg/dL before meals <180 mg/dL all other times of the day Specimen Anatomical Collection Method Collection Time Receive d Time (Source) Location / / Volume Laterality Blood specimen 07/11/2017 7:53 AM 017 7:53 (specimen) EST AM EST Yuan Webber MD POINT OF CARE TEST ORDERABLE S Performing Organization Address City/State/[place] [address] POCT Glucose (07/11/2017 4:22 AM EST) athologist Signature POC Glucose 151 65 - 199 [place] mg/dL [facility] Comment: Supplemental [...] [place] [address] Potassium (07/11/2017 2:20 AM EST) athologist Signature Potassium 4.5 3.5 - 5.0 [facility] mmol/L [facility] Comment: Please note: ??Patients with WBC [...] Webber MD CHEMISTRY ORDERABLES Performing Organization Address City/[facility] [place] [facility]/[place] [address] POCT Glucose (07/11/2017 12:17 AM EST) athologist Signature POC Glucose 162 65 - 199 [place] mg/dL [facility] Comment: Supplemental [...] [place] [address] POCT Glucose (07/10/2017 8:47 PM EST) athologist Signature POC Glucose 191 65 - 199 [place] mg/dL [facility] Comment: Supplemental ranges: <140 mg/dL before meals <180 mg/dL all other times of the day Specimen Anatomical Collection Method Collection Time Receive d Time (Source) Location / / Volume Laterality Blood specimen 07/10/2017 8:47 PM 017 8:47 (specimen) EST PM EST Yuan Webber MD POINT OF CARE TEST ORDERABLE S Performing Organization Address City/State/[place] [address] POCT Glucose (07/10/2017 4:06 PM EST) athologist Signature POC Glucose 131 65 - 199 [place] mg/dL [facility] Comment: Supplemental [...] [place] [address] POCT Glucose (07/10/2017 3:08 PM EST) athologist Signature POC Glucose 151 65 - 199 [place] mg/dL [facility] Comment: Supplemental ranges: <140 mg/dL before meals <180 mg/dL all other times of the day Specimen Anatomical Collection Method Collection Time Receive d Time (Source) Location / / Volume Laterality Blood specimen 07/10/2017 3:08 PM 017 3:08 (specimen) EST PM EST Yuan Webber MD POINT OF CARE TEST ORDERABLE S Performing Organization Address City/State/[place] [address] POCT Glucose (07/10/2017 2:25 PM EST) athologist Signature POC Glucose 146 65 - 199 [facility] mg/dL [facility] Comment: Supplemental [...] Address City/State/ZIP Code Phon e Number [address] POCT Glucose (07/10/2017 1:23 PM EST) P athologist Signature POC Glucose 166 65 - 199 [place] mg/dL [facility] Comment: Supplemental [...] [place]/ZIP Code Phon e Number [address] POCT Glucose (07/10/2017 11:52 AM EST) P athologist Signature POC Glucose 157 65 - 199 [place] mg/dL [facility] Comment: Supplemental [...] [place] [address] POCT Glucose (07/10/2017 11:01 AM EST) P athologist Signature POC Glucose 158 65 - 199 [place] mg/dL [facility] Comment: Supplemental [...] Address City/State/ZIP Code Phon e Number [address] POCT Glucose (07/10/2017 9:54 AM EST) athologist Signature POC Glucose 160 65 - 199 [place] mg/dL [facility] Comment: Supplemental [...] [place]/ZIP Code Phon e Number [address] POCT Glucose (07/10/2017 8:58 AM EST) athologist Signature POC Glucose 183 65 - 199 [place] mg/dL [facility] Comment: Supplemental [...] Address City/State/ZIP Code Phon e Number [address] POCT Glucose (07/10/2017 8:01 AM EST) athologist Signature POC Glucose 173 65 - 199 [facility] mg/dL [facility] Comment: Supplemental [...] Address City/State/ZIP Code Phon e Number [address] POCT Glucose (07/10/2017 7:05 AM EST) athologist Signature POC Glucose 166 65 - 199 [place] mg/dL [facility] Comment: Supplemental [...] Address City/State/ZIP Code Phon e Number [address] POCT Glucose (07/10/2017 6:00 AM EST) athologist Signature POC Glucose 162 65 - 199 [facility] mg/dL [facility] Comment: Supplemental ranges: <140 mg/dL before meals <180 mg/dL all other times of the day Specimen Anatomical Collection Method Collection Time Receive d Time (Source) Location / / Volume Laterality Blood specimen 07/10/2017 6:00 AM 017 6:00 (specimen) EST AM EST Yuan Webber MD POINT OF CARE TEST ORDERABLE S Performing Organization Address City/State/[place] [address] (ABNORMAL) Differential, Automated (07/10/2017 4:28 AM EST) [facility] gist Method Time Signature Neutrophils % 87.9 % [facility] Neutr Abs (ANC) 10.70 (H) 1.70 - [facility] 6.10 [facility] x10(3)/[facility] L LABORATORY Lymphocytes % 3.9 % [facility] Lymphocytes Abs 0.5 (L) 0.9 - 3.2 [facility] x10(3)/[facility] LABORATORY Monocytes % 7.0 % [facility] Monocyte Abs 0.8 0.3 - 0.9 [facility] x10(3)/[facility] LABORATORY Eosinophils % 0.3 % [facility] Eosinophils Abs 0.0 0.0 - 0.4 [facility] x10(3)/[facility] LABORATORY Basophils % 0.2 % [facility] Basophils Abs 0.0 0.0 - 0.1 [facility] x10(3)/[facility] LABORATORY [...] Organization Address City/State/[place] [address] (ABNORMAL) Hemogram (07/10/2017 4:28 AM EST) Analysis Performed At Patho logist Time Signature WBC 12.2 (H) 4.0 - 9.5 [facility] x10(3)/[facility] LABORATORY RBC 3.31 (L) 4.58 - [facility] 5.54 [facility] x10(6)/[facility] LABORATORY Hemoglobin 9.8 (L) 13.7 - [facility] 16.5 gm/dL [facility] Hematocrit 30.0 (L) 40.5 - [facility] 48.5 % [facility] MCV 90.6 82.9 - [facility] 93.1 fL [facility] MCH 29.6 27.5 - [facility] 32.1 pg [facility] MCHC 32.7 32.0 - [facility] 35.7 gm/dL [facility] Platelets 135 (L) 145 - 357 [facility] x10(3)/[facility] LABORATORY RDWSD 50.8 (H) 36.0 - [facility] 45.0 [facility] LABORATORY RDWCV 15.4 (H) 11.4 - [facility] 13.8 % [facility] MPV 10.0 7.6 - 12.9 [facility] LABORATORY nRBC % Auto 0.0 % [facility] nRBC Abs Auto 0.000 0.000 - [facility] 0.000 [facility] x10(3)/[facility] LABORATORY Specimen Anatomical Collection Method Collection Time Receive d Time (Source) Location / / Volume Laterality Blood specimen 07/10/2017 4:28 AM 017 4:36 (specimen) EST AM EST Resulting Agency Comment Spec In Lab Yuan Webber MD HEMATOLOGY ORDERABLES Performing Organization Address City/State/[place] [address] (ABNORMAL) Basic Metabolic Panel (non-fasting) (07/10/2017 4:28 AM EST) athologist Signature Glucose Lvl 178 65 - 199 [facility] mg/dL [facility] Comment: Diabetes: [...] [facility] Estimated GFR 60 >=60 [facility] Comment: The reported eGFR should be multiplied b y 1.2 for patients. The MDRD is not an appropriate measure o f renal function for patients with body mass extremes or in patients with acute kidney failure. http://The Influence/DHnkdep http://The Influence/DHMCnkf Specimen Anatomical Collection Method Collection Time Receive d Time (Source) Location / / Volume Laterality Blood specimen 07/10/2017 4:28 AM 017 4:36 (specimen) EST AM EST Resulting Agency Comment Spec In Lab Yuan Webber MD CHEMISTRY ORDERABLES Performing Organization Address City/[facility] [place] [facility] [place]/ZIP Code Phon e Number [address] POCT Glucose (07/10/2017 4:26 AM EST) P athologist Signature POC Glucose 176 65 - 199 [facility] Comment: Supplemental ranges: <140 mg/dL before meals <180 mg/dL all other times of the day Specimen Anatomical Collection Method Collection Time Receive d Time (Source) Location / / Volume Laterality Blood specimen 07/10/2017 4:26 AM 017 4:26 (specimen) EST AM EST Yuan Webber MD POINT OF CARE TEST ORDERABLE S Performing Organization Address City/State/[place] [address] (ABNORMAL) POCT Glucose (07/10/2017 3:06 AM EST) P athologist Signature POC Glucose 204 (H) 65 - 199 [facility] Comment: Supplemental [...] [place] [facility] [place] [address] (ABNORMAL) POCT Glucose (07/10/2017 2:10 AM EST) P athologist Signature POC Glucose 203 (H) 65 - 199 [place] mg/dL [facility] Comment: Supplemental [...] [place] [facility] [place] [address] POCT Glucose (07/10/2017 1:09 AM EST) P athologist Signature POC Glucose 196 65 - 199 [place] mg/dL [facility] Comment: Supplemental ranges: <140 mg/dL before meals <180 mg/dL all other times of the day Specimen Anatomical Collection Method Collection Time Receive d Time (Source) Location / / Volume Laterality Blood specimen 07/10/2017 1:09 AM 017 1:09 (specimen) EST AM EST Yuan Webber MD POINT OF CARE TEST ORDERABLE S Performing Organization Address City/State/[place] [address] POCT Glucose (07/10/2017 12:10 AM EST) P athologist Signature POC Glucose 173 65 - 199 [place] RY[place] mg/dL [facility] Comment: Supplemental [...] Address City/State/ZIP Code Phon e Number [address] POCT Glucose (07/09/2017 11:01 PM EST) athologist Signature POC Glucose 140 65 - 199 [place] RYAN mg/dL [facility] Comment: Supplemental [...] [place]/ZIP Code Phon e Number [address] POCT Glucose (07/09/2017 10:05 PM EST) athologist Signature POC Glucose 144 65 - 199 [place] ZHAORYAN mg/dL [facility] Comment: Supplemental ranges: <140 mg/dL before meals <180 mg/dL all other times of the day Specimen Anatomical Collection Method Collection Time Receive d Time (Source) Location / / Volume Laterality Blood specimen 07/09/2017 10:05 7 (specimen) PM EST 10:05 PM EST Yuan Webber MD POINT OF CARE TEST ORDERABLE S Performing Organization Address City/State/[place] [address] POCT Glucose (07/09/2017 9:31 PM EST) athologist Signature POC Glucose 121 65 - 199 [place] RYAN mg/dL [facility] Comment: Supplemental [...] Address City/State/ZIP Code Phon e Number [address] POCT Glucose (07/09/2017 9:03 PM EST) athologist Signature POC Glucose 98 65 - 199 [place] ZHAORYAN mg/dL [facility] Comment: Supplemental [...] Address City/State/ZIP Code Phon e Number [address] POCT Glucose (07/09/2017 8:09 PM EST) athologist Signature POC Glucose 117 65 - 199 [place] RYAN mg/dL [facility] Comment: Supplemental [...] Address City/State/ZIP Code Phon e Number [address] POCT Glucose (07/09/2017 5:40 PM EST) athologist Signature POC Glucose 155 65 - 199 [facility] RYAN mg/dL [facility] Comment: Supplemental [...] Address City/State/ZIP Code Phon e Number [address] POCT Glucose (07/09/2017 4:24 PM EST) athologist Signature POC Glucose 164 65 - 199 [place] RYAN mg/dL [facility] Comment: Supplemental [...] [place]/ZIP Code Phon e Number [address] POCT Glucose (07/09/2017 3:19 PM EST) athologist Signature POC Glucose 166 65 - 199 [place] ZHAORYAN mg/dL [facility] Comment: Supplemental [...] [place] [address] POCT Glucose (07/09/2017 2:26 PM EST) athologist Signature POC Glucose 179 65 - 199 [place] RYAN mg/dL [facility] Comment: Supplemental ranges: <140 mg/dL before meals <180 mg/dL all other times of the day Specimen Anatomical Collection Method Collection Time Receive d Time (Source) Location / / Volume Laterality Blood specimen 07/09/2017 2:26 PM 017 2:26 (specimen) EST PM EST Yuan Webber MD POINT OF CARE TEST ORDERABLE S Performing Organization Address City/State/[place] [address] (ABNORMAL) POCT Glucose (07/09/2017 1:29 PM EST) P athologist Signature POC Glucose 210 (H) 65 - 199 [facility] RYAN mg/dL [facility] Comment: Supplemental ranges: <140 mg/dL before meals <180 mg/dL all other times of the day Specimen Anatomical Collection Method Collection Time Receive d Time (Source) Location / / Volume Laterality Blood specimen 07/09/2017 1:29 PM 017 1:29 (specimen) EST PM EST Yuan Webber MD POINT OF CARE TEST ORDERABLE S Performing Organization Address City/State/[place] [address] POCT Glucose (07/09/2017 12:20 PM EST) athologist Signature POC Glucose 172 65 - 199 [facility] RYAN mg/dL [facility] Comment: Supplemental ranges: <140 mg/dL before meals <180 mg/dL all other times of the day Specimen Anatomical Collection Method Collection Time Receive d Time (Source) Location / / Volume Laterality Blood specimen 07/09/2017 12:20 7 (specimen) PM EST 12:20 PM EST Yuan Webber MD POINT OF CARE TEST ORDERABLE S Performing Organization Address City/State/[place] [address] POCT Glucose (07/09/2017 11:24 AM EST) athologist Signature POC Glucose 156 65 - 199 [facility] RYAN mg/dL [facility] Comment: Supplemental ranges: <140 mg/dL before meals <180 mg/dL all other times of the day Specimen Anatomical Collection Method Collection Time Receive d Time (Source) Location / / Volume Laterality Blood specimen 07/09/2017 11:24 7 (specimen) AM EST 11:24 AM EST Yuan Webber MD POINT OF CARE TEST ORDERABLE S Performing Organization Address City/State/[place] [address] POCT Glucose (07/09/2017 11:11 AM EST) athologist Signature POC Glucose 172 65 - 199 K[place]ALINA ZHAORYAN mg/dL [facility] Comment: Supplemental [...] Address City/State/ZIP Code Phon e Number [address] POCT Glucose (07/09/2017 10:08 AM EST) athologist Signature POC Glucose 176 65 - 199 K[place] ZHAORYAN mg/dL [facility] Comment: Supplemental [...] Address City/State/ZIP Code Phon e Number [address] POCT Glucose (07/09/2017 8:02 AM EST) athologist Signature POC Glucose 178 65 - 199 K[place] ZHAORYAN mg/dL [facility] Comment: Supplemental ranges: <140 mg/dL before meals <180 mg/dL all other times of the day Specimen Anatomical Collection Method Collection Time Receive d Time (Source) Location / / Volume Laterality Blood specimen 07/09/2017 8:02 AM 017 8:02 (specimen) EST AM EST Yuan Webber MD POINT OF CARE TEST ORDERABLE S Performing Organization Address City/State/[place] [address] (ABNORMAL) BLOOD GAS 2 ARTERIAL (07/09/2017 5:37 AM EST) Analysis Performed At Patho logist Time Signature pH Art 7.36 7.35 - [facility] 7.45 [facility] pCO2 Art 38 35 - 45 [facility] mmHg [facility] pO2 Art 79 (L) 85 - 104 [facility] LABORATORY HCO3 Art 20.9 20.0 - [facility] 26.0 [facility] mmol/L [facility] LABORATORY BE Art -4.6 (L) -3.0 - 3.0 [facility] mmol/L [facility] Hgb Blood Gas 10.5 (L) 13.7 - [facility] 16.5 gm/dL [facility] O2HB Art 93.8 (L) 94.0 - [facility] 97.0 % [facility] COHB Art 0.3 % [facility] Blood 113 (H) 98 - 107 mmol/L [facility] Gluc Whole Bld 175 65 - 199 mg/dL [facility] Comment: Diabetes: >=200 mg/dL plus symp toms. Lactate WB 1.0 0.5 - 2.2 mmol/L [facility] FIO2 Art 40 % [facility]ORY PF Ratio Art 198 [facility] LAB[facility]ORY Specimen Anatomical Collection Method Collection Time Receive d Time (Source) Location / / Volume Laterality Blood specimen 07/09/2017 5:37 AM 017 5:37 (specimen) EST AM EST Yuan Webber MD CHEMISTRY ORDERABLES Performing Organization Address City/[facility] [place] [facility] [place]/ZIP Code Phon e Number [address] POCT Glucose (07/09/2017 3:27 AM EST) athologist Signature POC Glucose 192 65 - 199 [facility] Comment: Supplemental ranges: <140 mg/dL before meals <180 mg/dL all other times of the day Specimen Anatomical Collection Method Collection Time Receive d Time (Source) Location / / Volume Laterality Blood specimen 07/09/2017 3:27 AM 017 3:27 (specimen) EST AM EST Yuan Webber MD POINT OF CARE TEST ORDERABLE S Performing Organization Address City/State/[place] [address] (ABNORMAL) Basic Metabolic Panel (non-fasting) (07/09/2017 2:30 AM EST) athologist Signature Glucose Lvl 179 65 - 199 [facility] mg/dL [facility] Comment: Diabetes: [...] in patients with acute kidney failure. http://[employer] Influence/DHnkdep http://[employer] Influence/DHMCnkf Specimen Anatomical Collection Method Collection Time Receive d Time (Source) Location / / Volume Laterality Blood specimen Venous Draw / 07/09/2017 2:30 AM 2016 2:42 (specimen) Unknown EST AM EST Resulting Agency Comment Spec In Lab Yuan Webber MD CHEMISTRY ORDERABLES Performing Organization Address City/[facility] [place] [facility] [place]/[facility] [place] [address] (ABNORMAL) Potassium (07/09/2017 2:30 AM EST) P athologist Signature Potassium 5.1 (H) 3.5 - 5.0 [facility] mmol/L [facility] Comment: Please note: ??Patients with WBC [...] Webber MD CHEMISTRY ORDERABLES Performing Organization Address City/[facility] [place] [facility] [place]/ZIP [facility] [place] [address] (ABNORMAL) Hemogram (07/09/2017 2:30 AM EST) Analysis Performed At Patho logist Time Signature WBC 12.5 (H) 4.0 - 9.5 [facility] x[facility](3[facility] LABORATORY RBC 3.38 (L) 4.58 - [place] [facility] 5.54 [facility] x10(6)/[facility] LABORATORY Hemoglobin 10.1 (L) 13.7 - [place] ZHAORYAN 16.5 gm/dL [facility] Hematocrit 30.3 (L) 40.5 - [facility] 48.5 % [facility] MCV 89.6 82.9 - [facility] 93.1 [facility] LABORATORY MCH 29.9 27.5 - [place] ZHAORYAN 32.1 pg [facility] MCHC 33.3 32.0 - [place] ZHAORYAN 35.7 gm/dL [facility] Platelets 127 (L) 145 - 357 [facility] x10(3)/[facility] LABORATORY RDWSD 49.3 (H) 36.0 - [facility] 45.0 [facility] LABORATORY RDWCV 15.2 (H) 11.4 - [facility] RYAN 13.8 % [facility] MPV 9.9 7.6 - 12.9 [facility] LABORATORY nRBC % Auto 0.0 % [facility] nRBC Abs Auto 0.000 0.000 - [place] ZHAORYAN 0.000 [facility] x10(3)/[facility] LABORATORY Specimen Anatomical Collection Method Collection Time Receive d Time (Source) Location / / Volume Laterality Blood specimen 07/09/2017 2:30 AM 017 2:41 (specimen) EST AM EST Resulting Agency Comment Spec In Lab Yuan Webber MD HEMATOLOGY ORDERABLES Performing Organization Address City/State/[place] [address] POCT Glucose (07/09/2017 2:10 AM EST) P athologist Signature POC Glucose 169 65 - 199 [facility] mg/dL [facility] Comment: Supplemental [...] Address City/State/ZIP Code Phon e Number [address] POCT Glucose (07/09/2017 1:01 AM EST) P athologist Signature POC Glucose 173 65 - 199 [place] DAVIS mg/dL [facility] Comment: Supplemental [...] [place] [address] Blood culture (07/09/2017 12:40 AM EST) [facility] gist Method Time Signature Blood Culture No growth K[place] DAVIS at 5 days. [facility] Specimen Anatomical Collection Method Collection Time Receive d Time (Source) Location / / Volume Laterality Blood specimen STRUCTURE OF RIGHT 07/09/2017 12:40 3:58 (specimen) UPPER LIMB / AM EST AM EST Unknown Resulting Agency Comment Spec In Lab Yuan Webber MD MICROBIOLOGY - BLOOD ORDERAB LES Performing Organization Address City/[facility] [place] [facility] [place]/ZIP [place] [address] Blood culture (07/09/2017 12:30 AM EST) Patholo gist Method Time Signature Blood Culture No growth K[place]ALINA DAVIS at 5 days. [facility] Specimen Anatomical Collection Method Collection Time Receive d Time (Source) Location / / Volume Laterality Blood specimen STRUCTURE OF LEFT 07/09/2017 12:30 06/25 3:59 (specimen) UPPER LIMB / AM EST AM EST Unknown Resulting Agency Comment Spec In Lab Yuan Webber MD MICROBIOLOGY - BLOOD ORDERAB LES Performing Organization Address City/[facility] [place] [facility] [place]/ZIP [place] [address] (ABNORMAL) Urinalysis Microscopic Exam (07/09/2017 12:05 AM EST) Analysis Performed At Patho logist Time Signature RBC UA 32 (H) 0 - 3 /HPF [facility] WBC UA 5 (H) 0 - 3 /HPF [facility] Squam Epith UA <1 <=4 /HPF [facility] Hyaline Cast 17 (H) 0 - 2 /LPF [facility]ORY Gran Cast UA 1 (H) <=0 /LPF [facility] Uric Ac Bianca Rare (A) None /HPF [facility] Specimen (Source) Anatomical Collection Method Collection Time Re ceived Time Location / / Volume Laterality Urine specimen 07/09/2017 12:05 7 obtained via AM EST 12:39 AM EST indwelling urinary catheter (specimen) Resulting Agency Comment Spec In Lab Yuan Webber MD URINE ORDERABLES Performing Organization Address City/State/[place] [address] (ABNORMAL) Urinalysis with reflex Culture (07/09/2017 12:05 AM EST) Patholo gist Method Time Signature Glucose UA Negative Negative [facility] mg/dL [facility] Protein UA 30 (A) Negative [facility] mg/dL [facility] Bilirubin UA Negative Negative [facility] mg/dL [facility] Comment: Clinical correlation required for positi [...] CENTER LABORATORY Ketones UA Negative Negative mg/dL [facility] Nitrite UA Negative Negative [facility] Leukocytes UA Negative Negative [facility] LABORATORY Appearance UA Hazy (A) Clear [facility] Spec [place] UA 1.025 1.002 - 1.030 [facility] Color UA Yellow Yellow [facility] Culture Reflexed No [facility] Specimen (Source) Anatomical Collection Method Collection Time Re ceived Time Location / / Volume Laterality Urine specimen 07/09/2017 12:05 7 obtained via AM EST 12:39 AM EST indwelling urinary catheter (specimen) Resulting Agency Comment Spec In Lab Yuan Webber MD URINE ORDERABLES Performing Organization Address City/[facility] [place] [facility] [place]/ZIP Code Phon e Number [address] POCT Glucose (07/08/2017 11:01 PM EST) athologist Signature POC Glucose 191 65 - 199 [facility] Comment: Supplemental [...] [place]/ZIP Code Phon e Number [address] POCT Glucose (07/08/2017 10:04 PM EST) athologist Signature POC Glucose 198 65 - 199 [facility] mg/dL [facility] Comment: Supplemental ranges: <140 mg/dL before meals <180 mg/dL all other times of the day Specimen Anatomical Collection Method Collection Time Receive d Time (Source) Location / / Volume Laterality Blood specimen 07/08/2017 10:04 7 (specimen) PM EST 10:04 PM EST Yuan Webber MD POINT OF CARE TEST ORDERABLE S Performing Organization Address City/State/[place] [address] Prepare Albumin 5% in [...] Organization Address City/State/[place] [address] POCT Glucose (07/08/2017 8:28 PM EST) athologist Signature POC Glucose 195 65 - 199 [facility] Comment: Supplemental ranges: <140 mg/dL before meals <180 mg/dL all other times of the day Specimen Anatomical Collection Method Collection Time Receive d Time (Source) Location / / Volume Laterality Blood specimen 07/08/2017 8:28 PM 017 8:28 (specimen) EST PM EST Yuan Webber MD POINT OF CARE TEST ORDERABLE S Performing Organization Address City/State/[place] [address] (ABNORMAL) POCT Glucose (07/08/2017 7:13 PM EST) athologist Signature POC Glucose 220 (H) 65 - 199 [facility] mg/dL [facility] Comment: Supplemental ranges: <140 mg/dL before meals <180 mg/dL all other times of the day Specimen Anatomical Collection Method Collection Time Receive d Time (Source) Location / / Volume Laterality Blood specimen 07/08/2017 7:13 PM 017 7:13 (specimen) EST PM EST Yuan Webber MD POINT OF CARE TEST ORDERABLE S Performing Organization Address City/State/[place] [address] POCT Glucose (07/08/2017 5:04 PM EST) athologist Signature POC Glucose 147 65 - 199 [facility] mg/dL [facility] Comment: Supplemental ranges: <140 mg/dL before meals <180 mg/dL all other times of the day Specimen Anatomical Collection Method Collection Time Receive d Time (Source) Location / / Volume Laterality Blood specimen 07/08/2017 5:04 PM 017 5:04 (specimen) EST PM EST Yuan Webber MD POINT OF CARE TEST ORDERABLE S Performing Organization Address City/State/[place] [address] (ABNORMAL) BLOOD GAS 2 ARTERIAL (07/08/2017 4:13 PM EST) Analysis Performed At Patho logist Time Signature pH Art 7.38 7.35 - [facility] 7.45 [facility] pCO2 Art 36 35 - 45 [facility] mmHg [facility] pO2 Art 91 85 - 104 [facility] LABORATORY HCO3 Art 20.9 20.0 - [facility] 26.0 [facility] mmol/L [facility] LAB[facility] BE Art -4.2 (L) -3.0 - 3.0 [facility] mmol/L [facility] Hgb Blood Gas 11.7 (L) 13.7 - [facility] 16.5 gm/dL [facility] O2HB Art 95.1 94.0 - [facility] 97.0 % [facility] COHB Art 0.6 % [facility] Blood 110 (H) 98 - 107 mmol/L [facility] Gluc Whole Bld 155 65 - 199 mg/dL [facility] Comment: Diabetes: >=200 mg/dL plus symp toms. Lactate WB 1.4 0.5 - 2.2 mmol/L [facility] FIO2 Art 40 % [facility] PF Ratio Art 228 [facility] Specimen Anatomical Collection Method Collection Time Receive d Time (Source) Location / / Volume Laterality Blood specimen 07/08/2017 4:13 PM 017 4:13 (specimen) EST PM EST Yuan Webber MD CHEMISTRY ORDERABLES Performing Organization Address City/[facility] [place] [facility] [place]/ZIP [facility] [address] POCT Glucose (07/08/2017 4:01 PM EST) P athologist Signature POC Glucose 148 65 - 199 [facility] Comment: Supplemental [...] [place] [address] POCT Glucose (07/08/2017 3:21 PM EST) P athologist Signature POC Glucose 118 65 - 199 [facility]dL [facility] Comment: Supplemental [...] Address City/State/ZIP Code Phon e Number [address] POCT Glucose (07/08/2017 2:01 PM EST) athologist Signature POC Glucose 129 65 - 199 [place] RYAN mg/dL [facility] Comment: Supplemental [...] [place]/ZIP Code Phon e Number [address] POCT Glucose (07/08/2017 11:53 AM EST) athologist Signature POC Glucose 156 65 - 199 [place] RYAN mg/dL [facility] Comment: Supplemental [...] [place]/ZIP Code Phon e Number [address] POCT Glucose (07/08/2017 11:04 AM EST) athologist Signature POC Glucose 181 65 - 199 [place] RYAN mg/dL [facility] Comment: Supplemental ranges: <140 mg/dL before meals <180 mg/dL all other times of the day Specimen Anatomical Collection Method Collection Time Receive d Time (Source) Location / / Volume Laterality Blood specimen 07/08/2017 11:04 7 (specimen) AM EST 11:04 AM EST Yuan Webber MD POINT OF CARE TEST ORDERABLE S Performing Organization Address City/State/[place] [address] (ABNORMAL) POCT Glucose (07/08/2017 9:24 AM EST) athologist Signature POC Glucose 203 (H) 65 - 199 [facility] mg/dL [facility] Comment: Supplemental ranges: <140 mg/dL before meals <180 mg/dL all other times of the day Specimen Anatomical Collection Method Collection Time Receive d Time (Source) Location / / Volume Laterality Blood specimen 07/08/2017 9:24 AM 017 9:24 (specimen) EST AM EST Yuan Webber MD POINT OF CARE TEST ORDERABLE S Performing Organization Address City/State/[place] [address] APTT (07/08/2017 8:40 AM [...] Webber MD HEMATOLOGY ORDERABLES Performing Organization Address City/[facility] [place] [facility] [place]/[place] [address] (ABNORMAL) Prothrombin Time (07/08/2017 [...] Organization Address City/State/[place] [address] (ABNORMAL) POCT Glucose (07/08/2017 7:38 AM EST) athologist Signature POC Glucose 232 (H) 65 - 199 [facility] mg/dL [facility] Comment: Supplemental [...] [place] [address] (ABNORMAL) POCT Glucose (07/08/2017 7:07 AM EST) athologist Signature POC Glucose 234 (H) 65 - 199 [facility] mg/dL [facility] Comment: Supplemental [...] [place] [address] (ABNORMAL) POCT Glucose (07/08/2017 6:04 AM EST) athologist Signature POC Glucose 225 (H) 65 - 199 [facility] mg/dL [facility] Comment: Supplemental ranges: <140 mg/dL before meals <180 mg/dL all other times of the day Specimen Anatomical Collection Method Collection Time Receive d Time (Source) Location / / Volume Laterality Blood specimen 07/08/2017 6:04 AM 017 6:04 (specimen) EST AM EST Yuan Webber MD POINT OF CARE TEST ORDERABLE S Performing Organization Address City/State/[place] [address] (ABNORMAL) POCT Glucose (07/08/2017 5:31 AM EST) athologist Signature POC Glucose 216 (H) 65 - 199 [facility] mg/dL [facility] Comment: Supplemental ranges: <140 mg/dL before meals <180 mg/dL all other times of the day Specimen Anatomical Collection Method Collection Time Receive d Time (Source) Location / / Volume Laterality Blood specimen 07/08/2017 5:31 AM 017 5:31 (specimen) EST AM EST Yuan Webber MD POINT OF CARE TEST ORDERABLE S Performing Organization Address City/State/[place] [address] (ABNORMAL) POCT Glucose (07/08/2017 4:52 AM EST) athologist Signature POC Glucose 257 (H) 65 - 199 [facility] mg/dL [facility] Comment: Supplemental ranges: <140 mg/dL before meals <180 mg/dL all other times of the day Specimen Anatomical Collection Method Collection Time Receive d Time (Source) Location / / Volume Laterality Blood specimen 07/08/2017 4:52 AM 017 4:52 (specimen) EST AM EST Daphne Shahid MD POINT OF CARE TEST ORDERABLE S Performing Organization Address City/State/[place] [address] (ABNORMAL) BLOOD GAS 2 ARTERIAL (07/08/2017 4:04 AM EST) Analysis Performed At Patho logist Time Signature pH Art 7.30 (L) 7.35 - [facility] 7.45 [facility] pCO2 Art 41 35 - 45 [facility] mmHg [facility] pO2 Art 83 (L) 85 - 104 [facility] LABORATORY HCO3 Art 19.6 (L) 20.0 - [facility] 26.0 [facility] mmol/L [facility] BE Art -6.8 (L) -3.0 - 3.0 [facility] mmol/L [facility] Hgb Blood Gas 12.2 (L) 13.7 - [facility] 16.5 gm/dL [facility] O2HB Art 93.5 (L) 94.0 - [facility] 97.0 % [facility] COHB Art 0.4 % [facility] [...] Whole Blood 107 98 - 107 mmol/L [facility]ORY Gluc Whole Bld 274 (H) 65 - 199 mg/dL [facility] Comment: Diabetes: >=200 mg/dL plus symp toms. Lactate WB 4.4 (Critical) 0.5 - 2.2 mmol/L [facility] Comment: Noted by twisting operator. FIO2 Art 40 % [facility] PF Ratio Art 208 [facility] LAB[facility]ORY Specimen Anatomical Collection Method Collection Time Receive d Time (Source) Location / / Volume Laterality Blood specimen 07/08/2017 4:04 AM 017 4:04 (specimen) EST AM EST Daphne Shahid MD CHEMISTRY ORDERABLES Performing Organization Address City/State/ZIP Code Phon e Number [address] Scan, Peripheral Blood (07/08/2017 [...] Webber MD HEMATOLOGY ORDERABLES Performing Organization Address City/[facility]/ZIP Code Phon e Number [address] (ABNORMAL) Differential, Automated (07/08/2017 4:00 AM EST) Patholo gist Method Time Signature Neutrophils % 85.4 % [facility] Neutr Abs (ANC) 16.07 (H) 1.70 - [facility] 6.10 [facility] x10(3)/[facility] L LABORATORY Lymphocytes % 3.5 % [facility] Lymphocytes Abs 0.6 (L) 0.9 - 3.2 [facility] x10(3)/[facility] LABORATORY Monocytes % 10.4 % [facility] Monocyte Abs 2.0 (H) 0.3 - 0.9 [facility] x10(3)/[facility] LABORATORY Eosinophils % 0.0 % [facility] Eosinophils Abs 0.0 0.0 - 0.4 [facility] x10(3)/[facility] LABORATORY Basophils % 0.1 % [facility] Basophils Abs 0.0 0.0 - 0.1 [facility] x10(3)/[facility] LABORATORY [...] Organization Address City/State/[place] [address] (ABNORMAL) Hemogram (07/08/2017 4:00 AM EST) Analysis Performed At Patho logist Time Signature WBC 18.8 (H) 4.0 - 9.5 [facility] x10(3)/[facility] LABORATORY RBC 4.00 (L) 4.58 - [facility] 5.54 [facility] x10(6)/[facility] LABORATORY Hemoglobin 11.9 (L) 13.7 - [facility] 16.5 gm/dL [facility] Hematocrit 35.9 (L) 40.5 - [facility] 48.5 % [facility] MCV 89.8 82.9 - [facility] 93.1 [facility] LABORATORY MCH 29.8 27.5 - [facility] R[facility]AN 32.1 pg [facility] MCHC 33.1 32.0 - [facility] 35.7 gm/dL [facility] Platelets 232 145 - 357 [facility] x10(3)/[facility] LABORATORY RDWSD 47.6 (H) 36.0 - [facility] RYAN 45.[address] [facility] RDWCV 14.5 (H) 11.4 - [facility] RYAN 13.8 % [facility] MPV 9.5 7.6 - 12.9 [facility] LABORATORY nRBC % Auto 0.0 % [facility]ORATORY nRBC Abs Auto 0.000 0.000 - [facility] 0.000 [facility] x10(3)/[facility] LABORATORY Specimen Anatomical Collection Method Collection Time Receive d Time (Source) Location / / Volume Laterality Blood specimen 07/08/2017 4:00 AM 017 4:09 (specimen) EST AM EST Resulting Agency Comment Spec In Lab Yuan Webber MD HEMATOLOGY ORDERABLES Performing Organization Address City/[facility]/[place] [address] (ABNORMAL) Electrolytes panel (07/08/2017 4:00 AM EST) athologist Signature Sodium 139 135 - 145 [facility] mmol/L [facility] Potassium 4.7 3.5 - 5.0 [facility] mmol/L [facility] Comment: result rechecked-JLK Please note: ??Patients [...] Webber MD CHEMISTRY ORDERABLES Performing Organization Address City/[facility]/[place] [address] (ABNORMAL) Cardiac Enzymes (LEB/CGP) (07/08/2017 4:00 AM EST) P athologist Signature Troponin-T 1.88 (H) 0.00 - [facility] 0.00 ng/mL [facility] Comment: The 99th percentile for Troponin [...] additional sample may be indicated. Reference: Third Adrian Definition of Myocardial Infarction. Journal of the [place] [employer] 2012;60:1581-98 CK, Total 413 (H) 0 - 200 unit/L [facility] Comment: result rechecked-K Specimen Anatomical Collection Method Collection Time Receive d Time (Source) Location / / Volume Laterality Blood specimen 07/08/2017 4:00 AM 017 4:09 (specimen) EST AM EST Resulting Agency Comment Spec In Lab Yuan Webber MD CHEMISTRY ORDERABLES Performing Organization Address City/State/[place] [address] (ABNORMAL) Glucose, fasting (07/08/2017 4:00 AM EST) athologist Signature Glucose 287 (H) 65 - 99 [facility] Fasting mg/dL [facility] Comment: ?Fasting* Glucose Interpretive C riteria [...] of Diabetes Mellitus, Position Statement from the [place] [employer]. ??Diabete s Care, Volume 33, Supplement 1, Jul 2009 Specimen Anatomical Collection Method Collection Time Receive d Time (Source) Location / / Volume Laterality Blood specimen 07/08/2017 4:00 AM 017 4:09 (specimen) EST AM EST Resulting Agency Comment Spec In Lab Yuan Webber MD CHEMISTRY ORDERABLES Performing Organization Address City/[facility] Code Phon e Number [address] (ABNORMAL) Creatinine (07/08/2017 4:00 AM EST) Analysis Performed At Patho logist Time Signature Creatinine 1.55 (H) 0.80 - [facility] 1.50 mg/dL [facility] Estimated GFR 44 (L) >=60 [facility] Comment: The reported eGFR should be multiplied b y 1.2 for patients. The MDRD is not an appropriate measure o f renal function for patients with body mass extremes or in patients with acute kidney failure. http://Bunndle.PathJump/DHnkdep http://The Influence/DHMCnkf Specimen Anatomical Collection Method Collection Time Receive d Time (Source) Location / / Volume Laterality Blood specimen 07/08/2017 4:00 AM 017 4:09 (specimen) EST AM EST Resulting Agency Comment Spec In Lab Yuan Webber MD CHEMISTRY ORDERABLES Performing Organization Address City/[facility]/ZIP Code Phon e Number [address] BUN (07/08/2017 4:00 AM EST) P athologist Signature BUN 16 10 - 20 [facility] mg/dL [facility] Specimen Anatomical Collection Method Collection Time Receive d Time (Source) Location / / Volume Laterality Blood specimen 07/08/2017 4:00 AM 017 4:09 (specimen) EST AM EST Resulting Agency Comment Spec In Lab Yuan Webber MD CHEMISTRY ORDERABLES Performing Organization Address City/[facility]/ZIP Code Phon e Number [address] (ABNORMAL) POCT Glucose (07/08/2017 3:00 AM EST) P athologist Signature POC Glucose 273 (H) 65 - 199 [facility] mg/dL [facility] Comment: Supplemental [...] [place] [facility] [place] [address] (ABNORMAL) POCT Glucose (07/08/2017 1:57 AM EST) P athologist Signature POC Glucose 288 (H) 65 - 199 [facility] mg/dL [facility] Comment: Supplemental [...] [place] [facility] [place] [address] (ABNORMAL) POCT Glucose (07/08/2017 1:01 AM EST) P athologist Signature POC Glucose 315 (H) 65 - 199 [facility] mg/dL [facility] Comment: Supplemental ranges: <140 mg/dL before meals <180 mg/dL all other times of the day Specimen Anatomical Collection Method Collection Time Receive d Time (Source) Location / / Volume Laterality Blood specimen 07/08/2017 1:01 AM 017 1:01 (specimen) EST AM EST Daphne Shahid MD POINT OF CARE TEST ORDERABLE S Performing Organization Address City/State/[place] [address] (ABNORMAL) BLOOD GAS 2 ARTERIAL (07/08/2017 12:09 AM EST) athologist Signature pH Art 7.26 7.35 - [facility] (Critical) 7.45 [facility] Comment: Noted by twisting operator. pCO2 Art 41 35 - 45 [...] [facility]ENTER [facility]ATORY COHB Art 0.2 % [facility] [...] Blood 109 (H) 98 - 107 mmol/L [facility]OR[facility]ORY Gluc Whole Bld 315 (H) 65 - 199 mg/dL [facility] Comment: Diabetes: >=200 mg/dL plus symp toms. Lactate WB 7.6 (Critical) 0.5 - 2.2 mmol/L [facility] Comment: Noted by twisting operator. FIO2 Art 40 % [facility] PF Ratio Art 240 [facility]ORY Specimen Anatomical Collection Method Collection Time Receive d Time (Source) Location / / Volume Laterality Blood specimen Arterial Draw / 07/08/2017 12:09 2016 5:31 (specimen) Unknown AM EST AM EST Resulting Agency Comment Spec In Lab Samy Maldonado MD CHEMISTRY ORDERABLES Performing Organization Address City/[facility]/[place] [address] (ABNORMAL) POCT Glucose (07/07/2017 10:56 PM EST) P athologist Signature POC Glucose 292 (H) 65 - 199 [facility] mg/dL [facility] Comment: Supplemental ranges: <140 mg/dL before meals <180 mg/dL all other times of the day Specimen Anatomical Collection Method Collection Time Receive d Time (Source) Location / / Volume Laterality Blood specimen 07/07/2017 10:56 7 (specimen) PM EST 10:56 PM EST Daphne Shahid MD POINT OF CARE TEST ORDERABLE S Performing Organization Address City/State/[place] [address] (ABNORMAL) BLOOD GAS 2 ARTERIAL (07/07/2017 10:04 PM EST) P athologist Signature pH Art 7.22 7.35 - [facility] (Critical) 7.45 [facility] Comment: Noted by twisting operator. pCO2 Art 42 35 - 45 [...] [facility]ICAL CENTER LABORATORY COHB Art 0.7 % [facility] Comment: Nonsmokers: 0.5-1.5% COHB Smokers: Variable, but usually less than 10% Toxic: 20-30% COHB Lethal: Greater than 60% COHB METHB Art 0.7 <=1.5 % [facility] Na Whole Blood 140 135 - 145 mmol/L [facility] K Whole Blood 3.3 (L) 3.5 - 5.0 mmol/L [facility] [...] Whole Blood 107 98 - 107 mmol/L [facility]ORY Gluc Whole Bld 304 (H) 65 - 199 mg/dL [facility] Comment: Diabetes: >=200 mg/dL plus symp toms. Lactate WB 8.2 (Critical) 0.5 - 2.2 mmol/L [facility] Comment: Noted by twisting operator. FIO2 Art 40 % [facility] PF Ratio Art 235 [facility]ORY Specimen Anatomical Collection Method Collection Time Receive d Time (Source) Location / / Volume Laterality Blood specimen 07/07/2017 10:04 7 (specimen) PM EST 10:04 PM EST Daphne Shahid MD CHEMISTRY ORDERABLES Performing Organization Address City/State/[place] [address] (ABNORMAL) Hemoglobin (07/07/2017 10:00 PM EST) athologist Signature Hemoglobin 12.8 (L) 13.7 - [facility] 16.5 gm/dL [facility] Specimen Anatomical Collection Method Collection Time Receive d Time (Source) Location / / Volume Laterality Blood specimen 07/07/2017 10:00 7 (specimen) PM EST 10:13 PM EST Resulting Agency Comment Spec In Lab Yuan Webber MD HEMATOLOGY ORDERABLES Performing Organization Address City/[facility] Phon e Number [address] (ABNORMAL) Potassium (07/07/2017 10:00 PM EST) athologist [facility] Potassium 3.4 (L) 3.5 - 5.0 [facility] mmol/L [facility] Comment: Please note: ??Patients with WBC [...] MD CHEMISTRY ORDERABLES Performing Organization Address [facility] [place] [address] (ABNORMAL) POCT Glucose (07/07/2017 8:49 PM EST) athologist Signature POC Glucose 241 (H) 65 - 199 [facility] mg/dL [facility] Comment: Supplemental [...] [place] [facility] [place]/ZIP Code Phon e Number [address] Prepare Albumin 5% in [...] BROWN BLOOD BANK ORDERABLES Performing Organization Address City/[facility]/ZIP Code Phon e Number [address] EKG 12 Lead (07/07/2017 7:17 PM EST) Component Value Ref Range Test Analysis Performed Pathologis t Method Time At Signature Ventricular rate 75 BPM MUSE SYSTEM Atrial Rate 75 BPM MUSE SYSTEM P-R Interval 168 ms MUSE SYSTEM QRS Duration 104 ms MUSE SYSTEM Q-T Interval 462 ms MUSE SYSTEM QTC Calculated 515 ms MUSE SYSTEM (Bezet) Calculated P [place] 52 degrees MUSE SYSTEM Calculated R [place] -40 degrees MUSE SYSTEM Calculated T [place] 39 degrees MUSE SYSTEM INTERPRETATION Normal sinus [...] 7.21 7.35 - [facility] (Critical) 7.45 [facility] Comment: Noted by twisting operator. pCO2 Art 50 (H) 35 - [...] MEDICAL CENTER LABORATORY COHB Art 0.5 % [facility] [...] [facility] Comment: Noted by twisting operator. Please note: Patients with WBC >100,000 may have falsely elevated Potassium levels. Contact the Clinical Chemistry L aboratory if there are any questions. ICa Whole Blood 1.07 (L) 1.15 - 1.33 mmol/L [facility] Comment: Note: ??Total bilirubin higher than 20 m g/dL may lead to falsely low ionized calcium. CL Whole Blood 107 98 - 107 mmol/L [facility]OR[facility]ORY Gluc Whole Bld 270 (H) 65 - 199 mg/dL [facility] Comment: Diabetes: >=200 mg/dL plus symp toms. Lactate WB 4.9 (Critical) 0.5 - 2.2 mmol/L [facility] Comment: Noted by twisting operator. FIO2 Art 100 % [facility] PF Ratio Art 238 [facility] Specimen Anatomical Collection Method Collection Time Receive d Time (Source) Location / / Volume Laterality Blood specimen 07/07/2017 6:57 PM 017 6:57 (specimen) EST PM EST Daphne Shahid MD CHEMISTRY ORDERABLES Performing Organization Address City/State/[place] [address] (ABNORMAL) BLOOD GAS 2 ARTERIAL (07/07/2017 5:31 PM EST) athologist Signature pH Art 7.29 7.35 - [facility] (Critical) 7.45 [facility] Comment: Noted by twisting operator. pCO2 Art 48 (H) 35 - [...] Whole Blood 105 98 - 107 mmol/L [facility] Gluc Whole Bld 293 (H) [...] Shahid MD CHEMISTRY ORDERABLES Performing Organization Address City/[facility]/[place] [address] Fibrinogen (07/07/2017 5:30 PM EST) athologist Signature Fibrinogen 224 180 - 510 [facility] mg/dL [facility] Comment: Called by: JEET, Read back [...] Perez MD HEMATOLOGY ORDERABLES Performing Organization Address City/[facility]/ZIP Code Phon e Number [address] APTT (07/07/2017 5:30 PM [...] Perez MD HEMATOLOGY ORDERABLES Performing Organization Address City/[facility]/ZIP [facility] Phon e Number [address] (ABNORMAL) Prothrombin Time (07/07/2017 [...] Organization Address City/State/ZIP Code Phon e Number [place] [id number] [address]OS[address] Drive (ABNORMAL) Hemogram (07/07/2017 5:30 PM EST) P athologist Signature WBC 19.6 (H) 4.0 - 9.5 [facility] x10(3)/[facility] LABORATORY RBC 3.08 (L) 4.58 - [facility] 5.54 [facility] x10(6)/[facility] LABORATORY Hemoglobin 9.2 (L) 13.7 - [facility] 16.5 gm/dL [facility] Hematocrit 28.0 (L) 40.5 - [facility] 48.5 % [facility] Comment: This result has been called to MONICA MORAN by DONALD GROSSMAN on 07 07 2017 at 1759, and has been read back. MCV 90.9 82.9 - 93.1 fL [facility] LABORATORY MCH 29.9 27.5 - 32.1 pg [facility] MCHC 32.9 32.0 - 35.7 gm/dL [facility] LABORATORY Platelets 155 145 - 357 x10(3)/[facility] LABORATORY RDWSD 46.5 (H) 36.0 - 45.0 fL [facility] RDWCV 14.1 (H) 11.4 - 13.8 % [facility]ORATORY MPV 9.5 7.6 - 12.9 fL [facility]ORATORY nRBC % Auto 0.0 % [facility] LABORATORY nRBC Abs Auto 0.000 0.000 - 0.000 x10(3)/[facility] LABORATORY Specimen Anatomical Collection Method Collection Time Receive d Time (Source) Location / / Volume Laterality Blood specimen 07/07/2017 5:30 PM 017 5:34 (specimen) EST PM EST Resulting Agency Comment Spec In Lab Yifan Perez MD HEMATOLOGY ORDERABLES Performing Organization Address [facility] Phon e Number [address] Prepare Platelets, Apheresis (07/07/2017 5:00 PM EST) athologist Signature Dispensed? Yes [facility] Specimen Anatomical Collection Method Collection Time Receive d Time (Source) Location / / Volume Laterality Blood specimen 07/07/2017 5:00 PM 017 4:58 (specimen) EST PM EST Daphne Shahid MD BLOOD BANK ORDERABLES Performing Organization Address [facility] Phon e Number [address] Platelet count (07/07/2017 4:55 PM EST) athologist Signature Platelets 177 145 - 357 [facility] x10(3)/[facility] LABORATORY Plat Immature 1.5 0.0 - 7.4 [facility] LAB[facility]ORY Comment: Limitation of the Immature Platelet Frac tion (IPF)-May be less reliable when the platelet count is less than 27u554/u L due to statistical imprecision. The IPF [...] in a decreased state of production. References: [employer] The Clinical Value of the Immature Platelet Fraction (IPF) in Cell Recovery Document Number [id number] 12/2010 [employer] The Role of the Imm ature Platelet Fraction (IPF) in the Differential Diagnosis of Thrombocytopen ia, Document [id number] V012/04/13 P012/06 Specimen Anatomical Collection Method Collection Time Receive d Time (Source) Location / / Volume Laterality Blood specimen 07/07/2017 4:55 PM 017 5:13 (specimen) EST PM EST Resulting Agency Comment Spec In Lab Daphne Shahid MD HEMATOLOGY ORDERABLES Performing Organization Address City/[facility]/[place] [address] (ABNORMAL) Hemoglobin and Hematocrit, blood (07/07/2017 4:55 PM EST) P athologist Signature Hemoglobin 9.1 (L) 13.7 - 16.5 [facility] gm/dL [facility] Comment: This result has been called [...] Shahid MD HEMATOLOGY ORDERABLES Performing Organization Address City/[facility]/[place] [address] (ABNORMAL) BLOOD GAS 2 ARTERIAL (07/07/2017 4:38 PM EST) Analysis Performed At Patho logist Time Signature pH Art 7.37 7.35 - [facility] 7.45 [facility] pCO2 Art 44 35 - 45 [facility] LABORATORY pO2 Art 322 (H) 85 - 104 [facility] HCO3 Art 24.9 20.0 - [facility] 26.0 [facility] mmol/L [facility] LABORATORY BE Art -0.4 -3.0 - 3.0 [facility] mmol/L [facility] Hgb Blood Gas 10.1 (L) 13.7 - [facility] 16.5 gm/dL [facility] O2HB Art 98.7 (H) 94.0 - [facility] 97.0 % [facility] COHB Art 0.1 % [facility] Comment: Nonsmokers: 0.5-1.5% COHB Smokers: Variable, but usually less than 10% Toxic: 20-30% COHB Lethal: Greater than 60% COHB METHB Art 0.3 <=1.5 % [facility] LABORATORY Na Whole Blood 130 (L) 135 - 145 mmol/L [facility]OR[facility] K Whole Blood 5.7 (H) 3.5 - 5.0 mmol/L [facility] LABORATORY Comment: Please note: Patients with WBC >100,000 may have falsely elevated Potassium levels. Contact the Clinical Chemistry L aboratory if there are any questions. ICa Whole Blood 0.89 (Critical) 1.15 - 1.33 mmol/L [facility] Comment: Noted by twisting operator. Note: ??Total bilirubin higher than 20 m g/dL may lead to falsely low ionized calcium. CL Whole Blood 101 98 - 107 mmol/L [facility]OR[facility]ORY Gluc Whole Bld 295 (H) [...] Organization Address City/State/[place] [address] (ABNORMAL) BLOOD GAS 2 VENOUS (07/07/2017 4:06 PM EST) Analysis Performed At Patho logist Time Signature pH Cody 7.31 (L) 7.32 - [facility] 7.42 [facility] pCO2 Cody 47 41 - 51 [facility] LABORATORY pO2 Cody 53 (H) 25 - 40 [facility] LABORATORY HCO3 [place] 22.7 mmol/L [facility] BE Cody -3.7 mmol/L [facility] Hgb Blood Gas 10.2 (L) 13.7 - [facility] 16.5 gm/dL [facility] O2HB [place] 81.0 % [facility] [...] Blood 5.3 (H) 3.5 - 5.0 mmol/L [facility] Comment: Please note: Patients with WBC >100,000 may have falsely elevated Potassium levels. Contact the Clinical Chemistry L aboratory if there are any questions. ICa Whole Blood 0.90 (Critical) 1.15 - 1.33 mmol/L [facility] Comment: Noted by twisting operator. Note: ??Total bilirubin higher than 20 m g/dL may lead to falsely low ionized calcium. CL Whole Blood 100 98 - 107 mmol/L [facility] Gluc Whole Bld 231 (H) 65 - 199 mg/dL [facility] Comment: Diabetes: >=200 mg/dL plus symp toms Lactate WB 1.1 0.5 - 2.2 mmol/L [facility] BGas Source Venous [facility] Specimen Anatomical Collection Method Collection Time Receive d Time (Source) Location / / Volume Laterality Blood specimen 07/07/2017 4:06 PM 017 4:06 (specimen) EST PM EST Daphne Shahid MD CHEMISTRY ORDERABLES Performing Organization Address City/State/[place] [address] (ABNORMAL) BLOOD GAS 2 ARTERIAL (07/07/2017 4:05 PM EST) Analysis Performed At Patho logist Time Signature pH Art 7.36 7.35 - [facility] 7.45 [facility] pCO2 Art 40 35 - 45 [facility] pO2 Art 282 (H) 85 - 104 [facility] HCO3 Art 22.1 20.0 - [facility] 26.0 [facility] mmol/L [facility] BE Art -3.4 (L) -3.0 - 3.0 [facility] mmol/L [facility] Hgb Blood Gas 10.2 (L) 13.7 - [facility] 16.5 gm/dL [facility] O2HB Art 98.4 (H) 94.0 - [facility] 97.0 % [facility] COHB Art 0.3 % [facility] Comment: Nonsmokers: 0.5-1.5% COHB Smokers: Variable, but usually less than 10% Toxic: 20-30% COHB Lethal: Greater than 60% COHB METHB Art 0.3 <=1.5 % [facility] Na Whole Blood 131 (L) 135 - 145 mmol/L [facility] K Whole Blood 5.4 (H) 3.5 - 5.0 mmol/L [facility] Comment: Please note: Patients with WBC >100,000 may have falsely elevated Potassium levels. Contact the Clinical Chemistry L aboratory if there are any questions. ICa Whole Blood 0.86 (Critical) 1.15 - 1.33 mmol/L [facility] Comment: Noted by twisting operator. Note: ??Total bilirubin higher than 20 m g/dL may lead to falsely low ionized calcium. CL Whole Blood 101 98 - 107 mmol/L [facility] Gluc Whole Bld 260 (H) [...] Organization Address City/State/[place] [address] (ABNORMAL) BLOOD GAS 2 ARTERIAL (07/07/2017 2:29 PM EST) Analysis Performed At Patho logist Time Signature pH Art 7.43 7.35 - [facility] 7.45 [facility] pCO2 Art 36 35 - 45 [facility] pO2 Art 221 (H) 85 - 104 [facility] HCO3 Art 23.2 20.0 - [facility] 26.0 [facility] mmol/L [facility] BE Art -1.2 -3.0 - 3.0 [facility] mmol/L [facility] Hgb Blood Gas 13.9 13.7 - [facility] 16.5 gm/dL [facility] O2HB Art 97.8 (H) 94.0 - [facility] 97.0 % [facility] COHB Art 1.1 % [facility] [...] Shahid MD CHEMISTRY ORDERABLES Performing Organization Address City/[facility] [place] [address] Prepare Coag Factors (Non-Hemophilia) (07/07/2017 1:25 PM EST) P athologist Signature Dispensed? Yes [facility] Specimen Anatomical Collection Method Collection Time Receive d Time (Source) Location / / Volume Laterality Blood specimen 07/07/2017 1:25 PM 017 1:21 (specimen) EST PM EST Daphne Shahid MD BLOOD BANK ORDERABLES Performing Organization Address City/[facility]/[place] [address] Prepare RBC (07/07/2017 1:10 PM EST) P athologist Signature Dispensed? Yes [facility] Specimen Anatomical Collection Method Collection Time Receive d Time (Source) Location / / Volume Laterality Blood specimen 07/07/2017 1:10 PM 017 1:05 (specimen) EST PM EST Daphne Shahid MD BLOOD BANK ORDERABLES Performing Organization Address City/[facility]/[place] [address] POCT Glucose (07/07/2017 11:56 AM EST) athologist Signature POC Glucose 188 65 - 199 [facility] mg/dL [facility] Comment: Supplemental [...] Address City/State/ZIP Code Phon e Number [address] POCT Glucose (07/07/2017 11:05 AM EST) athologist Signature POC Glucose 168 65 - 199 [facility] mg/dL [facility] Comment: Supplemental ranges: <140 mg/dL before meals <180 mg/dL all other times of the day Specimen Anatomical Collection Method Collection Time Receive d Time (Source) Location / / Volume Laterality Blood specimen 07/07/2017 11:05 7 (specimen) AM EST 11:05 AM EST Daphne Shahid MD POINT OF CARE TEST ORDERABLE S Performing Organization Address City/State/[place] [address] POCT Glucose (07/07/2017 10:02 AM EST) athologist Signature POC Glucose 191 65 - 199 [place] mg/dL [facility] Comment: Supplemental ranges: <140 mg/dL before meals <180 mg/dL all other times of the day Specimen Anatomical Collection Method Collection Time Receive d Time (Source) Location / / Volume Laterality Blood specimen 07/07/2017 10:02 7 (specimen) AM EST 10:02 AM EST Daphne Shahid MD POINT OF CARE TEST ORDERABLE S Performing Organization Address City/State/[place] [address] POCT Glucose (07/07/2017 7:53 AM EST) athologist Signature POC Glucose 178 65 - 199 [facility] mg/dL [facility] Comment: Supplemental ranges: <140 mg/dL before meals <180 mg/dL all other times of the day Specimen Anatomical Collection Method Collection Time Receive d Time (Source) Location / / Volume Laterality Blood specimen 07/07/2017 7:53 AM 017 7:53 (specimen) EST AM EST Daphne Shahid MD POINT OF CARE TEST ORDERABLE S Performing Organization Address City/State/[place] [address] POCT Glucose (07/07/2017 7:03 AM EST) athologist Signature POC Glucose 188 65 - 199 [facility] mg/dL [facility] Comment: Supplemental ranges: <140 mg/dL before meals <180 mg/dL all other times of the day Specimen Anatomical Collection Method Collection Time Receive d Time (Source) Location / / Volume Laterality Blood specimen 07/07/2017 7:03 AM 017 7:03 (specimen) EST AM EST Daphne Shahid MD POINT OF CARE TEST ORDERABLE S Performing Organization Address City/State/[place] [address] (ABNORMAL) POCT Glucose (07/07/2017 6:17 AM EST) athologist Signature POC Glucose 207 (H) 65 - 199 [facility] mg/dL [facility] Comment: Supplemental ranges: <140 mg/dL before meals <180 mg/dL all other times of the day Specimen Anatomical Collection Method Collection Time Receive d Time (Source) Location / / Volume Laterality Blood specimen 07/07/2017 6:17 AM 017 6:17 (specimen) EST AM EST Daphne Shahid MD POINT OF CARE TEST ORDERABLE S Performing Organization Address City/State/[place] [address] Differential, Automated (07/07/2017 5:15 AM EST) P athologist Signature Neutrophils % 69.7 % [facility] Neutr Abs (ANC) 5.32 1.70 - [facility] 6.10 [facility] x10(3)/[facility] LABORATORY Lymphocytes % 16.3 % [facility] Lymphocytes Abs 1.2 0.9 - 3.2 [facility] x10(3)/[facility] LABORATORY Monocytes % 10.5 % [facility] Monocyte Abs 0.8 0.3 - 0.9 [facility] x10(3)/[facility]ORATORY Eosinophils % 2.5 % [facility] Eosinophils Abs 0.2 0.0 - 0.4 [facility] x10(3)/[facility] LABORATORY Basophils % 0.7 % [facility] Basophils Abs 0.0 0.0 - 0.1 [facility] x10(3)/[facility] LABORATORY Immature Gran [...] x10(3)/[facility] Specimen Anatomical Collection Method Collection Time Receive d Time (Source) Location / / Volume Laterality Blood specimen 07/07/2017 5:15 AM 017 5:34 (specimen) EST AM EST Resulting Agency Comment Spec In Lab Daphne Shahid MD HEMATOLOGY ORDERABLES Performing Organization Address City/State/[place] [address] (ABNORMAL) Hemogram (07/07/2017 5:15 AM EST) Analysis Performed At Patho logist Time Signature WBC 7.6 4.0 - 9.5 [facility] x10(3)/[facility] LABORATORY RBC 4.82 4.58 - [facility] 5.54 [facility] x10(6)/[facility] LAB[facility]ATORY Hemoglobin 14.4 13.7 - [facility] gm/dL [facility] Hematocrit 42.1 40.5 - [facility] 48.5 % [facility] MCV 87.3 82.9 - [facility] 93.1 [facility] MCH 29.9 27.5 - [facility] 32.1 pg [facility] MCHC 34.2 32.0 - [facility] 35.7 gm/dL [facility] Platelets 188 145 - 357 [facility] x10(3)/[facility] LABORATORY RDWSD 45.1 (H) 36.0 - [facility] 45.0 [facility] LABORATORY RDWCV 14.3 (H) 11.4 - [facility] 13.8 % [facility] MPV 9.4 7.6 - 12.9 [facility] LABORATORY nRBC % Auto 0.0 % [facility] nRBC Abs Auto 0.000 0.000 - [facility] 0.000 [facility] x10(3)/[facility] LABORATORY Specimen Anatomical Collection Method Collection Time Receive d Time (Source) Location / / Volume Laterality Blood specimen 07/07/2017 5:15 AM 017 5:34 (specimen) EST AM EST Resulting Agency Comment Spec In Lab Daphne Shahid MD HEMATOLOGY ORDERABLES Performing Organization Address City/State/[place] [address] (ABNORMAL) APTT (07/07/2017 5:15 [...] Address City/State/ZIP Code Phon e Number [address] Magnesium (07/07/2017 5:15 AM EST) athologist Signature Magnesium 0.94 0.69 - 1.07 [facility] mmol/L [facility] Specimen Anatomical Collection Method Collection Time Receive d Time (Source) Location / / Volume Laterality Blood specimen 07/07/2017 5:15 AM 017 5:34 (specimen) EST AM EST Resulting Agency Comment Spec In Lab Daphne Shahid MD CHEMISTRY ORDERABLES Performing Organization Address City/[facility] Code Phon e Number [address] (ABNORMAL) Basic Metabolic Panel (non-fasting) (07/07/2017 5:15 AM EST) athologist Signature Glucose Lvl 203 (H) 65 - 199 [facility] mg/dL [facility] Comment: Diabetes: [...] [facility] Estimated GFR >60 >=60 [facility] Comment: The reported eGFR should be multiplied b y 1.2 for patients. The MDRD is not an appropriate measure o f renal function for patients with body mass extremes or in patients with acute kidney failure. http://[employer] Influence/DHnkdep http://[employer] Influence/DHMCnkf Specimen Anatomical Collection Method Collection Time Receive d Time (Source) Location / / Volume Laterality Blood specimen 07/07/2017 5:15 AM 017 5:34 (specimen) EST AM EST Resulting Agency Comment Spec In Lab Daphne Shahid MD CHEMISTRY ORDERABLES Performing Organization Address City/State/[place] [address] (ABNORMAL) Cardiac Enzymes (LEB/CGP) (07/07/2017 5:15 AM EST) P athologist Signature Troponin-T 2.07 (H) 0.00 [facility] ng/mL [facility] Comment: The 99th percentile for Troponin [...] additional sample may be indicated. Reference: Third Adrian Definition of Myocardial Infarction. Journal of the [place] [employer] 2012;60:1581-98 CK, Total 88 0 - 200 unit/L [facility] Specimen Anatomical Collection Method Collection Time Receive d Time (Source) Location / / Volume Laterality Blood specimen 07/07/2017 5:15 AM 017 5:34 (specimen) EST AM EST Resulting Agency Comment Spec In Lab Daphne Shahid MD CHEMISTRY ORDERABLES Performing Organization Address City/State/ZIP Code Phon e Number [address] POCT Glucose (07/07/2017 5:01 AM EST) athologist Signature POC Glucose 182 65 - 199 [facility] Comment: Supplemental [...] Address City/State/ZIP Code Phon e Number [address] POCT Glucose (07/07/2017 4:08 AM EST) athologist Signature POC Glucose 199 65 - 199 [facility] Comment: Supplemental [...] Address City/State/ZIP Code Phon e Number [address] POCT Glucose (07/07/2017 3:03 AM EST) athologist Signature POC Glucose 188 65 - 199 [facility] mg/[facility] Comment: Supplemental [...] [place] [facility] [place] [address] (ABNORMAL) POCT Glucose (07/07/2017 2:08 AM EST) athologist Signature POC Glucose 200 (H) 65 - 199 [facility] mg/dL [facility] Comment: Supplemental [...] [place] [facility] [place] [address] (ABNORMAL) POCT Glucose (07/07/2017 1:31 AM EST) athologist Signature POC Glucose 209 (H) 65 - 199 [facility] mg/[facility] Comment: Supplemental [...] [place] [facility] [place] [address] XR Chest PA or [...] - 199 [facility] mg/dL [facility] Comment: Supplemental ranges: <140 mg/dL before meals <180 mg/dL all other times of the day Specimen Anatomical Collection Method Collection Time Receive d Time (Source) Location / / Volume Laterality Blood specimen 07/07/2017 12:07 7 (specimen) AM EST 12:07 AM EST Daphne Shahid MD POINT OF CARE TEST ORDERABLE S Performing Organization Address City/State/[place] [address] (ABNORMAL) APTT (07/07/2017 12:00 [...] Address City/State/ZIP Code Phon e Number [address] POCT Glucose (07/06/2017 9:55 PM EST) athologist Signature POC Glucose 109 65 - 199 [place] mg/dL [facility] Comment: Supplemental [...] [place] [facility] [place]/ZIP Code Phon e Number [address] POCT Glucose (07/06/2017 9:04 PM EST) athologist Signature POC Glucose 120 65 - 199 [place] mg/dL [facility] Comment: Supplemental [...] [place] [facility] [place]/ZIP Code Phon e Number [address] POCT Glucose (07/06/2017 7:45 PM EST) athologist Signature POC Glucose 158 65 - 199 [place] mg/dL [facility] Comment: Supplemental [...] [place] [facility] [place] [address] Potassium (07/06/2017 7:40 PM EST) athologist Signature Potassium 3.9 3.5 - 5.0 [facility] mmol/L [facility] Comment: Please note: ??Patients with WBC [...] Shahid MD CHEMISTRY ORDERABLES Performing Organization Address City/[facility]/[place] [address] (ABNORMAL) Cardiac Enzymes (LEB/CGP) (07/06/2017 7:40 PM EST) athologist Signature Troponin-T 2.27 (H) 0.00 - [place] [facility] 0.00 ng/mL [facility] Comment: The 99th percentile for Troponin [...] additional sample may be indicated. Reference: Third Adrian Definition of Myocardial Infarction. Journal of the [place] [employer] 2012;60:1581-98 CK, Total 93 0 - 200 unit/L [facility] Specimen Anatomical Collection Method Collection Time Receive d Time (Source) Location / / Volume Laterality Blood specimen 07/06/2017 7:40 PM 017 7:52 (specimen) EST PM EST Resulting Agency Comment Spec In Lab Daphne Shahid MD CHEMISTRY ORDERABLES Performing Organization Address City/[facility]/[place] [address] (ABNORMAL) POCT Glucose (07/06/2017 7:13 PM EST) P athologist Signature POC Glucose 200 (H) 65 - 199 [facility] mg/dL [facility] Comment: Supplemental [...] [place] [facility] [place] [address] (ABNORMAL) APTT (07/06/2017 6:15 [...] Shahid MD HEMATOLOGY ORDERABLES Performing Organization Address City/[facility]/[place] [address] (ABNORMAL) POCT Glucose (07/06/2017 6:03 PM EST) athologist Signature POC Glucose 236 (H) 65 - 199 [place] mg/dL [facility] Comment: Supplemental [...] [place] [facility] [place] [address] (ABNORMAL) POCT Glucose (07/06/2017 5:01 PM EST) athologist Signature POC Glucose 235 (H) 65 - 199 [place] mg/dL [facility] Comment: Supplemental [...] [place] [facility] [place] [address] (ABNORMAL) POCT Glucose (07/06/2017 4:06 PM EST) athologist Signature POC Glucose 202 (H) 65 - 199 [place] mg/dL [facility] Comment: Supplemental [...] Address City/State/ZIP Code Phon e Number [address] POCT Glucose (07/06/2017 2:59 PM EST) athologist Signature POC Glucose 178 65 - 199 [facility] Comment: Supplemental [...] [place] [facility] [place] [address] (ABNORMAL) Cardiac Enzymes (LEB/CGP) (07/06/2017 2:10 PM EST) athologist Signature Troponin-T 2.34 (H) 0.00 - [facility] 0.[facility] ng/mL [facility] Comment: The 99th percentile for Troponin [...] additional sample may be indicated. Reference: Third Adrian Definition of Myocardial Infarction. Journal of the [place] [employer] 2012;60:1581-98 CK, Total 101 0 - 200 unit/L [facility] Specimen Anatomical Collection Method Collection Time Receive d Time (Source) Location / / Volume Laterality Blood specimen 07/06/2017 2:10 PM 017 2:26 (specimen) EST PM EST Resulting Agency Comment Spec In Lab Daphne Shahid MD CHEMISTRY ORDERABLES Performing Organization Address [facility] Phon e Number [address] POCT Glucose (07/06/2017 2:08 PM EST) P athologist Signature POC Glucose 192 65 - 199 [facility] mg/dL [facility] Comment: Supplemental [...] [place] [facility] [place] [address] POCT Glucose (07/06/2017 1:04 PM EST) P athologist Signature POC Glucose 162 65 - 199 [facility] Comment: Supplemental [...] [place] [facility] [place] [address] [facility] [address] POCT Glucose (07/06/2017 12:05 PM EST) P athologist Signature POC Glucose 196 65 - 199 [facility] mg/dL [facility] Comment: Supplemental [...] [place] [facility] [place]/ZIP Code Phon e Number [address] EKG 12 Lead (07/06/2017 12:00 PM EST) Component Value Ref Range Test Analysis Performed Pathologis t Method Time At Signature Ventricular rate 91 BPM MUSE SYSTEM Atrial Rate 91 BPM MUSE SYSTEM P-R Interval 140 ms MUSE SYSTEM QRS Duration 94 ms MUSE SYSTEM Q-T Interval 394 ms MUSE SYSTEM QTC Calculated 484 ms MUSE SYSTEM (Bezet) Calculated P [place] 36 degrees MUSE SYSTEM Calculated R [place] -19 degrees MUSE SYSTEM Calculated T [place] 104 degrees MUSE SYSTEM INTERPRETATION Normal sinus rhythm MUSE SYSTEM 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) ST & T wave abnormality, consider lateral ischemia Abnormal ECG When compared with ECG of 05-JUL-2017 20:39, No significant change was found Confirmed by MD Luci, Taurus Braun ([id number]) on 07/06/2017 5:07:33 PM Specimen Anatomical Collection [...] BANK ORDERABLES Performing Organization Address City/[facility]/[place] [address] Antibody screen (07/06/2017 12:00 PM EST) Patholo gist Method Time Signature Ab Screen Negative [facility] LABORATORY Expires at 07/09/2017 [facility] [id number] on: [facility] Specimen Anatomical Collection Method Collection Time Receive d Time (Source) Location / / Volume Laterality Blood specimen 07/06/2017 12:00 7 (specimen) PM EST 12:24 PM EST Resulting Agency Comment Spec In Lab Daphne Shahid MD BLOOD BANK ORDERABLES Performing Organization Address City/[facility]/[place] [address] ABO/Rh Typing (07/06/2017 12:00 PM EST) P athologist Signature ABORh Type O Pos [facility] Specimen Anatomical Collection Method Collection Time Receive d Time (Source) Location / / Volume Laterality Blood specimen 07/06/2017 12:00 7 (specimen) PM EST 12:24 PM EST Resulting Agency Comment Spec In Lab Daphne Shahid MD BLOOD BANK ORDERABLES Performing Organization Address City/[facility]/[place] [address] Prothrombin Time (07/06/2017 11:24 [...] Shahid MD HEMATOLOGY ORDERABLES Performing Organization Address City/[facility]/ZIP Code Phon e Number [address] (ABNORMAL) APTT (07/06/2017 11:24 [...] Shahid MD HEMATOLOGY ORDERABLES Performing Organization Address City/[facility]/[place] [address] POCT Glucose (07/06/2017 11:02 AM EST) P athologist Signature POC Glucose 187 65 - 199 [facility] mg/dL [facility] Comment: Supplemental [...] [place] [facility] [place] [address] POCT Glucose (07/06/2017 10:18 AM EST) P athologist Signature POC Glucose 193 65 - 199 [facility] mg/dL [facility] Comment: Supplemental ranges: <140 mg/dL before meals <180 mg/dL all other times of the day Specimen Anatomical Collection Method Collection Time Receive d Time (Source) Location / / Volume Laterality Blood specimen 07/06/2017 10:18 7 (specimen) AM EST 10:18 AM EST Daphne Shahid MD POINT OF CARE TEST ORDERABLE S Performing Organization Address City/State/[place] [address] POCT Glucose (07/06/2017 9:25 AM EST) athologist Signature POC Glucose 182 65 - 199 [facility] LABORATORY Comment: Supplemental ranges: <140 mg/dL before meals <180 mg/dL all other times of the day Specimen Anatomical Collection Method Collection Time Receive d Time (Source) Location / / Volume Laterality Blood specimen 07/06/2017 9:25 AM 017 9:25 (specimen) EST AM EST Daphne Shahid MD POINT OF CARE TEST ORDERABLE S Performing Organization Address City/State/[place] [address] (ABNORMAL) Cardiac Enzymes (LEB/CGP) (07/06/2017 8:10 AM EST) athologist [employer] Troponin-T 2.26 (H) 0.00 - [place] 0.00 ng/mL [facility] Comment: The 99th percentile for Troponin [...] additional sample may be indicated. Reference: Third Adrian Definition of Myocardial Infarction. Journal of the [place] [employer] 2012;60:1581-98 CK, Total 124 0 - 200 unit/L [facility] Specimen Anatomical Collection Method Collection Time Receive d Time (Source) Location / / Volume Laterality Blood specimen 07/06/2017 8:10 AM 017 8:23 (specimen) EST AM EST Resulting Agency Comment Spec In Lab Daphne Shahid MD CHEMISTRY ORDERABLES Performing Organization Address City/[facility]/ZIP Code Phon e Number [address] Magnesium (07/06/2017 8:10 AM EST) P athologist Signature Magnesium 0.84 0.69 - 1.07 [facility] mmol/L [facility] Specimen Anatomical Collection Method Collection Time Receive d Time (Source) Location / / Volume Laterality Blood specimen 07/06/2017 8:10 AM 017 8:21 (specimen) EST AM EST Resulting Agency Comment Spec In Lab Daphne Shahid MD CHEMISTRY ORDERABLES Performing Organization Address City/[facility] [place] [address] (ABNORMAL) Basic Metabolic Panel (non-fasting) (07/06/2017 8:10 AM EST) P athologist Signature Glucose Lvl 199 65 - 199 [facility] mg/dL [facility] Comment: Diabetes: [...] [facility] Estimated GFR >60 >=60 [facility] Comment: The reported eGFR should be multiplied b y 1.2 for patients. The MDRD is not an appropriate measure o f renal function for patients with body mass extremes or in patients with acute kidney failure. http://The Influence/DHnkdep http://The Influence/DHnkf Specimen Anatomical Collection Method Collection Time Receive d Time (Source) Location / / Volume Laterality Blood specimen 07/06/2017 8:10 AM 017 8:21 (specimen) EST AM EST Resulting Agency Comment Spec In Lab Daphne Shahid MD CHEMISTRY ORDERABLES Performing Organization Address City/[facility]/[place] [address] POCT Glucose (07/06/2017 7:34 AM EST) P athologist Signature POC Glucose 198 65 - 199 [facility] mg/dL [facility] Comment: Supplemental [...] [place] [facility] [place] [address] POCT Glucose (07/06/2017 7:03 AM EST) P athologist Signature POC Glucose 181 65 - 199 [place] mg/dL [facility] Comment: Supplemental [...] Address City/State/ZIP Code Phon e Number [address] XR Chest PA [...] Signature POC Glucose 172 65 - 199 [facility] Comment: Supplemental ranges: <140 mg/dL before meals <180 mg/dL all other times of the day Specimen Anatomical Collection Method Collection Time Receive d Time (Source) Location / / Volume Laterality Blood specimen 07/06/2017 6:21 AM 017 6:21 (specimen) EST AM EST Daphne Shahid MD POINT OF CARE TEST ORDERABLE S Performing Organization Address City/State/[place] [address] POCT Glucose (07/06/2017 5:08 AM EST) athologist Signature POC Glucose 154 65 - 199 [facility] Comment: Supplemental ranges: <140 mg/dL before meals <180 mg/dL all other times of the day Specimen Anatomical Collection Method Collection Time Receive d Time (Source) Location / / Volume Laterality Blood specimen 07/06/2017 5:08 AM 017 5:08 (specimen) EST AM EST Daphne Shahid MD POINT OF CARE TEST ORDERABLE S Performing Organization Address City/State/[place] [address] POCT Glucose (07/06/2017 4:05 AM EST) athologist Signature POC Glucose 142 65 - 199 [facility]dL [facility] Comment: Supplemental [...] [place]/ZIP Code Phon e Number [address] POCT Glucose (07/06/2017 3:00 AM EST) athologist [facility] POC Glucose 116 65 - 199 [facility] mg/dL [facility] Comment: Supplemental [...] [place] [facility] [place]/ZIP Code Phon e Number [address] Potassium (07/06/2017 2:20 AM EST) athologist [facility] Potassium 3.9 3.5 - 5.0 [facility] mmol/L [facility] Comment: Please note: ??Patients with WBC [...] Shahid MD CHEMISTRY ORDERABLES Performing Organization Address City/[facility]/ZIP Code Phon e Number [address] Differential, Automated (07/06/2017 2:20 AM EST) athologist [facility] Neutrophils % 72.9 % [facility] Neutr Abs (ANC) 5.53 1.70 - [facility] 6.10 [facility] x10(3)/[facility] LABORATORY Lymphocytes % 16.4 % [facility] Lymphocytes Abs 1.2 0.9 - 3.2 [facility] x10(3)/[facility] LABORATORY Monocytes % 9.4 % [facility] Monocyte Abs 0.7 0.3 - 0.9 [facility] x10(3)/[facility] LABORATORY Eosinophils % 0.5 % [facility] Eosinophils Abs 0.0 0.0 - 0.4 [facility] x10(3)/[facility] LABORATORY Basophils % 0.4 % [facility] Basophils Abs 0.0 0.0 - 0.1 [facility] x10(3)/[facility] LABORATORY Immature Gran [...] x10(3)/[facility] LAB[facility]ORY Specimen Anatomical Collection Method Collection Time Receive d Time (Source) Location / / Volume Laterality Blood specimen 07/06/2017 2:20 AM 017 2:33 (specimen) EST AM EST Resulting Agency Comment Spec In Lab Daphne Shahid MD HEMATOLOGY ORDERABLES Performing Organization Address City/State/[place] [address] (ABNORMAL) Hemogram (07/06/2017 2:20 AM EST) Analysis Performed At Patho logist Time Signature WBC 7.6 4.0 - 9.5 [facility] x10(3)/[facility] LABORATORY RBC 4.52 (L) 4.58 - [facility] 5.54 [facility] x10(6)/[facility] LABORATORY Hemoglobin 13.4 (L) 13.7 - [place] [facility] 16.5 gm/dL [facility] Hematocrit 39.7 (L) 40.5 - [place] 48.5 % [facility] MCV 87.8 82.9 - [facility] R[facility]AN 93.1 [facility] LABORATORY MCH 29.6 27.5 - [place] [facility] 32.1 pg [facility] MCHC 33.8 32.0 - [place] 35.7 gm/dL [facility] Platelets 189 145 - 357 [facility] x10(3)/[facility] LABORATORY RDWSD 45.6 (H) 36.0 - [facility] 45.0 [facility] LABORATORY RDWCV 14.3 (H) 11.4 - [facility] RYAN 13.8 % [facility] MPV 9.1 7.6 - 12.9 [facility] LABORATORY nRBC % Auto 0.0 % [facility] nRBC Abs Auto 0.000 0.000 - [facility] RYAN 0.000 [facility] x10(3)/[facility] LABORATORY Specimen Anatomical Collection Method Collection Time Receive d Time (Source) Location / / Volume Laterality Blood specimen 07/06/2017 2:20 AM 017 2:33 (specimen) EST AM EST Resulting Agency Comment Spec In Lab Daphne Shhaid MD HEMATOLOGY ORDERABLES Performing Organization Address City/State/[place] [address] (ABNORMAL) APTT (07/06/2017 2:20 [...] Address City/State/ZIP Code Phon e Number [address] POCT Glucose (07/06/2017 2:20 AM EST) athologist Signature POC Glucose 115 65 - 199 [facility] Comment: Supplemental ranges: <140 mg/dL before meals <180 mg/dL all other times of the day Specimen Anatomical Collection Method Collection Time Receive d Time (Source) Location / / Volume Laterality Blood specimen 07/06/2017 2:20 AM 017 2:20 (specimen) EST AM EST Daphne Shahid MD POINT OF CARE TEST ORDERABLE S Performing Organization Address City/State/[place] [address] (ABNORMAL) Cardiac Enzymes (LEB/CGP) (07/06/2017 2:20 AM EST) athologist Signature Troponin-T 2.13 (H) 0.00 - [place] 0.00 ng/mL [facility] Comment: The 99th percentile for Troponin [...] additional sample may be indicated. Reference: Third Adrian Definition of Myocardial Infarction. Journal of the [place] College [employer] 2012;60:1581-98 CK, Total 129 0 - 200 unit/L [facility] Specimen Anatomical Collection Method Collection Time Receive d Time (Source) Location / / Volume Laterality Blood specimen 07/06/2017 2:20 AM 017 2:33 (specimen) EST AM EST Resulting Agency Comment Spec In Lab Daphne Shahid MD CHEMISTRY ORDERABLES Performing Organization Address City/State/[place] [address] (ABNORMAL) Hemoglobin A1c (07/06/2017 [...] with hemoglobinopathies. Additional resources are available on [facility] website. Macario HAMMOND, Ruthann J, Deysi R, et al. ??Tr anslating the A1C assay into estimated average glucose values. ??Diabetes Care 2008:31(8):8677-2315. Specimen Anatomical Collection Method Collection Time Receive d Time (Source) Location / / Volume Laterality Blood specimen 07/06/2017 2:20 AM 017 2:34 (specimen) EST AM EST Resulting Agency Comment Spec In Lab Daphne Shahid MD CHEMISTRY ORDERABLES Performing Organization Address City/State/[place] [address] (ABNORMAL) Lipid Panel (07/06/2017 2:20 AM EST) [facility] Method Time Signature Chol, Total 150 <=239 [place] mg/dL [facility] Triglycerides 129 <=199 [facility] mg/dL [facility] HDL 32 (L) >=40 [facility] mg/dL [facility] LDL Cholesterol 92 <=190 [place] mg/dL [facility] Chol/HDL Ratio 4.7 ratio [facility] Lipid See Note [place] Interpretation [facility] Comment: Lipid management should be guided by a p atient? s ASCVD risk, goals and preferences. ACC/AHA Guidelines recommend high intens ity statin if clinical ASCVD or LDL greater than or equal to 190 mg/dL. http://tinyurl.com/OQO-PUX-Pqwurlnzs Adults aged 40-75 with LDL 70-189 mg/dL should have their 10 year ASCVD risk estimated with the ACC/AHA ASCVD risk es timator http://tools.acc.org/ZBIOM-Pscc-Ftqmkjrb r/ Statin should be discussed if risk [...] Shahid MD CHEMISTRY ORDERABLES Performing Organization Address City/[facility]/ZIP Code Phon e Number [address] POCT Glucose (07/06/2017 1:09 AM EST) athologist Signature POC Glucose 121 65 - 199 [facility] mg/dL [facility] Comment: Supplemental [...] [place] [facility] [place] [address] POCT Glucose (07/06/2017 12:06 AM EST) athologist Signature POC Glucose 147 65 - 199 [facility] mg/dL [facility] Comment: Supplemental ranges: <140 mg/dL before meals <180 mg/dL all other times of the day Specimen Anatomical Collection Method Collection Time Receive d Time (Source) Location / / Volume Laterality Blood specimen 07/06/2017 12:06 7 (specimen) AM EST 12:06 AM EST Daphne Shahid MD POINT OF CARE TEST ORDERABLE S Performing Organization Address City/State/[place] [address] (ABNORMAL) POCT Glucose (07/05/2017 10:56 PM EST) athologist Signature POC Glucose 200 (H) 65 - 199 [facility] mg/dL [facility] Comment: Supplemental ranges: <140 mg/dL before meals <180 mg/dL all other times of the day Specimen Anatomical Collection Method Collection Time Receive d Time (Source) Location / / Volume Laterality Blood specimen 07/05/2017 10:56 7 (specimen) PM EST 10:56 PM EST Daphne Shahid MD POINT OF CARE TEST ORDERABLE S Performing Organization Address City/State/[place] [address] (ABNORMAL) POCT Glucose (07/05/2017 10:05 PM EST) athologist Signature POC Glucose 225 (H) 65 - 199 [facility] mg/dL [facility] Comment: Supplemental ranges: <140 mg/dL before meals <180 mg/dL all other times of the day Specimen Anatomical Collection Method Collection Time Receive d Time (Source) Location / / Volume Laterality Blood specimen 07/05/2017 10:05 7 (specimen) PM EST 10:05 PM EST Daphne Shahid MD POINT OF CARE TEST ORDERABLE S Performing Organization Address City/State/[place] [address] (ABNORMAL) POCT Glucose (07/05/2017 9:02 PM EST) athologist Signature POC Glucose 301 (H) 65 - 199 [facility] mg/dL [facility] Comment: Supplemental ranges: <140 mg/dL before meals <180 mg/dL all other times of the day Specimen Anatomical Collection Method Collection Time Receive d Time (Source) Location / / Volume Laterality Blood specimen 07/05/2017 9:02 PM 017 9:02 (specimen) EST PM EST Daphne Shahid MD POINT OF CARE TEST ORDERABLE S Performing Organization Address City/State/[place] [address] XR Chest PA or [...] 474 ms MUSE SYSTEM (Bezet) Calculated P [place] 50 degrees MUSE SYSTEM Calculated R [place] -28 degrees MUSE SYSTEM Calculated T [place] 90 degrees MUSE SYSTEM INTERPRETATION Sinus tachycardia [...] [facility] gist Method Time Signature Neutrophils % 88.4 % [facility] Neutr Abs (ANC) 9.08 (H) 1.70 - [facility] 6.10 [facility] x10(3)/[facility] LABORATORY Lymphocytes % 7.0 % [facility] Lymphocytes Abs 0.7 (L) 0.9 - 3.2 [facility] x10(3)/[facility] LABORATORY Monocytes % 3.7 % [facility] Monocyte Abs 0.4 0.3 - 0.9 [facility] x10(3)/[facility] LABORATORY Eosinophils % 0.1 % [facility] Eosinophils Abs 0.0 0.0 - 0.4 [facility] x10(3)/[facility] LABORATORY Basophils % 0.2 % [facility] Basophils Abs 0.0 0.0 - 0.1 [facility] x10(3)/[facility] LABORATORY [...] Organization Address City/State/[place] [address] (ABNORMAL) Hemogram (07/05/2017 8:20 PM EST) Analysis Performed At Patho logist Time Signature WBC 10.3 (H) 4.0 - 9.5 [facility] RY[facility] x10(3)/[facility] LABORATORY RBC 4.64 4.58 - [place] 5.54 [facility] x10(6)/[facility] LABORATORY Hemoglobin 14.1 13.7 - [place] 16.5 gm/dL [facility] Hematocrit 40.8 40.5 - [facility] R[facility]AN 48.5 % [facility] MCV 87.9 82.9 - [facility] R[facility]AN 93.1 [facility] LABORATORY MCH 30.4 27.5 - [place] 32.1 pg [facility] MCHC 34.6 32.0 - [facility] R[facility] 35.7 gm/dL [facility] Platelets 204 145 - 357 [facility] x10(3)/[facility] LABORATORY RDWSD 46.1 (H) 36.0 - [facility] R[facility]AN 45.0 [facility] LABORATORY RDWCV 14.5 (H) 11.4 - [facility] R[facility] 13.8 % [facility] MPV 9.7 7.6 - 12.9 [facility] nRBC % Auto 0.0 % [facility] nRBC Abs Auto 0.000 0.000 - [facility] R[facility] 0.000 [facility] x10(3)/[facility] LABORATORY Specimen Anatomical Collection Method Collection Time Receive d Time (Source) Location / / Volume Laterality Blood specimen 07/05/2017 8:20 PM 017 8:27 (specimen) EST PM EST Resulting Agency Comment Spec In Lab Daphne Shahid MD HEMATOLOGY ORDERABLES Performing Organization Address City/State/ZIP Code Phon e Number [place] [address] APTT (07/05/2017 8:20 PM [...] Organization Address City/State/[place] [address] (ABNORMAL) Cardiac Enzymes (LEB/CGP) (07/05/2017 8:20 PM EST) athologist [facility] Troponin-T 2.11 (H) 0.00 - [facility] 0.00 ng/mL [facility] Comment: The 99th percentile for Troponin [...] additional sample may be indicated. Reference: Third Adrian Definition of Myocardial Infarction. Journal of the [place] [employer] of [employer] 2012;60:1581-98 CK, Total 149 0 - 200 unit/L [facility] Specimen Anatomical Collection Method Collection Time Receive d Time (Source) Location / / Volume Laterality Blood specimen 07/05/2017 8:20 PM 017 8:27 (specimen) EST PM EST Resulting Agency Comment Spec In Lab Daphne Shahid MD CHEMISTRY ORDERABLES Performing Organization Address City/[facility]/ZIP [facility] [place] [address] (ABNORMAL) Magnesium (07/05/2017 8:20 PM EST) P athologist Signature Magnesium 0.68 (L) 0.69 - 1.07 [facility] mmol/L [facility] Specimen Anatomical Collection Method Collection Time Receive d Time (Source) Location / / Volume Laterality Blood specimen 07/05/2017 8:20 PM 017 8:27 (specimen) EST PM EST Resulting Agency Comment Spec In Lab Daphne Shahid MD CHEMISTRY ORDERABLES Performing Organization Address City/[facility]/[place] [address] (ABNORMAL) Basic Metabolic Panel (non-fasting) (07/05/2017 8:20 PM EST) P athologist Signature Glucose Lvl 321 (H) 65 - 199 [facility] mg/dL [facility] Comment: Diabetes: [...] [facility] Estimated GFR >60 >=60 [facility] Comment: The reported eGFR should be multiplied b y 1.2 for patients. The MDRD is not an appropriate measure o f renal function for patients with body mass extremes or in patients with acute kidney failure. http://The Influence/DHnkdep http://The Influence/DHMCnkf Specimen Anatomical Collection Method Collection Time Receive d Time (Source) Location / / Volume Laterality Blood specimen 07/05/2017 8:20 PM 017 8:27 (specimen) EST PM EST Resulting Agency Comment Spec In Lab Daphne Shahid MD CHEMISTRY ORDERABLES Performing Organization Address City/State/[place] [address] (ABNORMAL) POCT Glucose (07/05/2017 7:32 PM EST) P athologist Signature POC Glucose 296 (H) 65 - 199 [facility] mg/dL [facility] Comment: Supplemental ranges: <140 mg/dL before meals <180 mg/dL all other times of the day Specimen Anatomical Collection Method Collection Time Receive d Time (Source) Location / / Volume Laterality Blood specimen 07/05/2017 7:32 PM 017 7:32 (specimen) EST PM EST Daphne Shahid MD POINT OF CARE TEST ORDERABLE S Performing Organization Address City/State/[place] [address] CARDIAC CATHETERIZATION (07/05/2017 6:47 PM EST) Anatomical Region Laterality Modality Other Specimen (Source) Anatomical Location Collection Method / Collectio n Time Received Time / Laterality Volume Narrative 07/05/2017 7:27 PM EST ?[facility] ? Cardiac Cathete rization/Intervention Report ? Patient Name: Gregory Hoang ? Procedure Date: 07/05/2017 ? A #: [id number] ? Primary Physician: Clarisa, Jet T ? Case #: [id number] ? File Name: [id number] ? Catheterization Order Number: [id number] ? [facility] ? Final Report [place], [place] ? Patient Name: ? Gregory Natalya ?ID#: ?[id number] ? : ?1945 ? Procedure Date: ? [...] presented with: non -STEMI (w/i 7 days). [place] ?[employer]iovascular Society angina c lass was IV. [...] site angio graphy and IABP insertion in cathead operator. ? Jet Mckenna M.D. ? Electronically Signed by: Jet bunch M.D. ? Report Finalized: 07/05/2017 ??19:23 ? Report Last Ammended: 10/26/2017 ??10:29 ? Procedure Note Jet Mckenna MD - 10/26/2017Formatt ing of this note might be different from the original. [facility] Cardiac Catheterization/Intervention Re port Patient Name: Gregory Hoang Procedure Date: 07/05/2017 A #: [id number] Primary Physician: Jet Mckenna Case #: [id number] File Name: [id number] Catheterization Order Number: [id number] [facility] Singing Telegram Performer [facility] Final Report [place], [place] Patient Name: Gregory Hoang ID#: [id number] : 1945 Procedure Date: July 05, [...] presented with: non-STEMI ( w/i 7 days). [employer] angina class was IV. No [...] site angiograph y and IABP insertion in cathead operator. Jet Mckenna M.D. Electronically Signed by: [...] Mccollum ? (Age): 1945(72y) Med Rec#: ? [id number] ?Sex: ?M ? Site Loc: ? [facility] ?Ht / Wt: ??173(cm)/86(kg) Pt. Loc: ?CCU ? BSA: ?2 Study Date: ?? 07/05/2017 ?Pt. Type: Inpatient Tape: ? Referring: Daphne Shahid ([id number]) Referring: MANDA ALCANTAR Reading: Blade Preston ([id number]) Brim Ironer Hand: Dayami Paula BA, [facility] [...] E-wave Vmax ?0.8 ?m/sec ? MV deceleration [id number] ?msec ? MV A-wave Vmax ?0.8 ?m/sec [...] Mid-Inferior ?Akinetic ? Mid-Inferoseptal ?Hypokinetic ? [place]-Septal ? Akinetic ? [place]-Anterior ? Hypokinetic ? [place]-Lateral ?Hypokinetic ? [place]-Inferior ? Akinetic ? [place]-Tip ?Akinetic ? This report has been electronically sign ed by: _ Blade Preston MD ? 07/06/2017 08 :53:15 Images reviewed and interpretation [facility] Cardiac Ultrasound Laboratory Procedure Note Blade Preston MD - 07/06/2017Formatt ing of this note might be different from the original. Procedure: Transthoracic Echocardiogram Patient: NATALYA MCBRIDE(Age): [birth year]72y) Med Rec#: [id number] Sex: M Site Loc: [facility] Ht / Wt: 173(cm)/86(kg) Pt. Loc: CCU BSA: 2 Study Date: 07/05/2017 Pt. Type: Inpatie nt Tape: Referring: Daphne Shahid ([id number]) Referring: MANDA ALCANTAR Reading: Blade Preston ([id number]) Brim Ironer Hand: Dayami Paula BA, [facility] [...] MV E-wave Vmax 0.8 m/sec MV deceleration [id number] msec MV A-wave Vmax 0.8 m/sec MV [...] Mid-Posterolateral Hypokinetic Mid-Inferior Akinetic Mid-Inferoseptal Hypokinetic [place]-Septal Akinetic [place] [place]-Anterior Hypokinetic [place]-Lateral Hypokinetic [place]-Inferior Akinetic [place]-Tip Akinetic This report has been electronically sign ed by: _ Blade Preston MD 07/06/2017 08:53:15 Images reviewed and interpretation ver ied [facility] Cardiac Ultrasound Laboratory Daphne Shahid MD ECHO ORDERABLES Differential, Automated (07/05/2017 4:55 PM EST) athologist Signature Neutrophils % 77.0 % [facility] Neutr Abs (ANC) 5.26 1.70 - [facility] 6.10 [facility] x10(3)/[facility] LABORATORY Lymphocytes % 13.3 % [facility] Lymphocytes Abs 0.9 0.9 - 3.2 [facility] x10(3)/[facility] LABORATORY Monocytes % 8.2 % [facility] Monocyte Abs 0.6 0.3 - 0.9 [facility] x10(3)/[facility] LABORATORY Eosinophils % 0.7 % [facility] Eosinophils Abs 0.0 0.0 - 0.4 [facility] x10(3)/[facility] LABORATORY Basophils % 0.4 % [facility] Basophils Abs 0.0 0.0 - 0.1 [facility] x10(3)/[facility] LABORATORY Immature Gran [...] x10(3)/[facility] Specimen Anatomical Collection Method Collection Time Receive d Time (Source) Location / / Volume Laterality Blood specimen 07/05/2017 4:55 PM 017 5:24 (specimen) EST PM EST Resulting Agency Comment Spec In Lab Daphne Shahid MD HEMATOLOGY ORDERABLES Performing Organization Address City/State/[place] [address] (ABNORMAL) Hemogram (07/05/2017 4:55 PM EST) Analysis Performed At Patho logist Time Signature WBC 6.8 4.0 - 9.5 [facility] x10(3)/[facility] LABORATORY RBC 4.67 4.58 - [facility] 5.54 [facility] x10(6)/[facility] LABORATORY Hemoglobin 14.0 13.7 - [place] 16.5 gm/dL [facility] Hematocrit 41.0 40.5 - [place] 48.5 % [facility] MCV 87.8 82.9 - [facility] MCH 30.0 27.5 - [place] 32.1 pg [facility] MCHC 34.1 32.0 - [place] 35.7 gm/dL [facility] Platelets 197 145 - 357 [facility] x10(3)/[facility] LABORATORY RDWSD 46.4 (H) 36.0 - [place] 45.0 [facility] LABORATORY RDWCV 14.5 (H) 11.4 - [place] 13.8 % [facility] MPV 9.7 7.6 - 12.9 [facility] nRBC % Auto 0.0 % [facility] nRBC Abs Auto 0.000 0.000 - [place] 0.000 [facility] x10(3)/[facility] LABORATORY Specimen Anatomical Collection Method Collection Time Receive d Time (Source) Location / / Volume Laterality Blood specimen 07/05/2017 4:55 PM 017 5:24 (specimen) EST PM EST Resulting Agency Comment Spec In Lab Daphne Shahid MD HEMATOLOGY ORDERABLES Performing Organization Address City/State/[place] [address] (ABNORMAL) Cardiac Enzymes (LEB/CGP) (07/05/2017 4:55 PM EST) P athologist Signature Troponin-T 1.69 (H) 0.00 - [place] 0.00 ng/mL [facility] Comment: The 99th percentile for Troponin [...] additional sample may be indicated. Reference: Third Adrian Definition of Myocardial Infarction. Journal of the [place] [employer] 2012;60:1581-98 CK, Total 191 0 - 200 unit/L [facility] Specimen Anatomical Collection Method Collection Time Receive d Time (Source) Location / / Volume Laterality Blood specimen 07/05/2017 4:55 PM 017 5:56 (specimen) EST PM EST Resulting Agency Comment Spec In Lab Daphne Shahid MD CHEMISTRY ORDERABLES Performing Organization Address City/[facility]/[place] [address] (ABNORMAL) pro-Brain Natriuretic Peptide (07/05/2017 4:55 PM EST) P athologist Signature ProBNP 1,598 (H) <=125 [facility] Specimen Anatomical Collection Method Collection Time Receive d Time (Source) Location / / Volume Laterality Blood specimen 07/05/2017 4:55 PM 017 5:24 (specimen) EST PM EST Resulting Agency Comment Spec In Lab Daphne Shahid MD CHEMISTRY ORDERABLES Performing Organization Address City/State/[place] [address] Magnesium (07/05/2017 4:55 PM EST) P athologist Signature Magnesium 0.78 0.69 - 1.07 [facility] mmol/L [facility] Specimen Anatomical Collection Method Collection Time Receive d Time (Source) Location / / Volume Laterality Blood specimen 07/05/2017 4:55 PM 017 5:24 (specimen) EST PM EST Resulting Agency Comment Spec In Lab Daphne Shahid MD CHEMISTRY ORDERABLES Performing Organization Address City/State/[place] [address] (ABNORMAL) Basic Metabolic Panel (non-fasting) (07/05/2017 4:55 PM EST) P athologist Signature Glucose Lvl 230 (H) 65 - 199 [facility] mg/dL [facility] Comment: Diabetes: [...] [facility] Estimated GFR >60 >=60 [facility] Comment: The reported eGFR should be multiplied b y 1.2 for patients. The MDRD is not an appropriate measure o f renal function for patients with body mass extremes or in patients with acute kidney failure. http://[place].PathJump/DHnkdep http://[place].PathJump/DHMCnkf Specimen Anatomical Collection Method Collection Time Receive d Time (Source) Location / / Volume Laterality Blood specimen 07/05/2017 4:55 PM 017 5:24 (specimen) EST PM EST Resulting Agency Comment Spec In Lab Daphne Shahid MD CHEMISTRY ORDERABLES Performing Organization Address City/[facility]/[place] [address] (ABNORMAL) APTT (07/05/2017 4:55 [...] Shahid MD HEMATOLOGY ORDERABLES Performing Organization Address City/[facility]/[place] [address] (ABNORMAL) POCT Glucose (07/05/2017 4:53 PM EST) athologist Signature POC Glucose 208 (H) 65 - 199 [facility] mg/dL [facility] Comment: Supplemental [...] [place] [facility] [place] [address] EKG 12 Lead (07/05/2017 4:32 PM EST) Component Value Ref Range Test Analysis Performed Pathologis t Method Time At Signature Ventricular rate 97 BPM MUSE SYSTEM Atrial Rate 97 BPM MUSE SYSTEM P-R Interval 148 ms MUSE SYSTEM QRS Duration 96 ms MUSE SYSTEM Q-T Interval 364 ms MUSE SYSTEM QTC Calculated 462 ms MUSE SYSTEM (Bezet) Calculated P [place] 48 degrees MUSE SYSTEM Calculated R [place] -33 degrees MUSE SYSTEM Calculated T [place] 98 degrees MUSE SYSTEM INTERPRETATION Normal sinus [...] Coronary atherosclerosis of unspecified type of vessel, deering or graft Cardiomyopathy, ischemic Other specified forms [...] post-op day 1 in the AM Give [place] if unable to take PO, Routine Given [...] dose on Wed07/07/17 at 2100, Until Discontinued, [place] teeth, Routine Given 07/08/2017 10:06 PM EST [...] or norepinephrine is ineffective. Call pager # [phone] if initiated. Rate/Dose Change 07/08/2017 7:01 PM [...] if phenyleprine and/or vasopressin ineffective.Call pager # [phone] if initiated., Routine Rate/Dose Change 07/09/2017 1:24 [...] 2.0 L/min/M2. Maximum volume 2 L. Call fraternity house cook for additional fluid orders: pager #[phone]. Rate/Dose Verify 07/08/2017 4:00 AM EST 100 [...] post-op day 1 in the AM Give [place] if unable to take PO, Routine atorvastatin [...] - Comment: [phone] (Not Given - Provider: oMre Luther RN - Reason: Contraindicated)2020 (Not Given [...] Jones, VAMSI) 0922 (Given - Provider: Myrna Yonug, RN) 20 mEq, Oral, DAILY, First dose [...] post-op day 1 in the AM Give [place] if unable to take PO
Routine Group [...]
Routine documented in this encounter Care Teams [employer] Supervisor Relationship Specialty Start Date End Date Lovely Vicente MD PCP - General 04/16/[address] [place] [address] documented as of this encounter
--- OUTSIDE RECORDS SUMMARY | 2022-04-20 08:18 | XMS_ITS | Encounter Summary ---
:1945 Author Organization [facility] Address [facility] [place] [address] Care Team Providers Name Role Phone Lovely Vicente MD Primary Care Provider Reason for Visit Auth/Cert Specialty Diagnoses / Procedures Referred By Contact Refer red To Contact Diagnoses STEMI (ST elevation myocardial infarction) NSTEMI STEMI Procedures CARDIAC CATHETERIZATION NAYE IPI Referral ID Status Reason Start Date Expiration Date Visits Requ ested Visits Authorized [id number] 1 1 Encounter Details Date Type Department Care Team Description 07/07/2017 Surgery Main Operating Room Yuan Webber, @ CABG, USING ARTERIAL Barbara Ocampo MD GRAFT;SINGLE ARTERIAL Hospital [facility] GRAFT (WRVU 33.75) [facility] DR Siddiqu[place] [address] SURGERY [phone] [place], [place] [address] (Wo rk) Social History Tobacco [...] in this encounter Discharge Summaries Martha Teague, BRICK VENEER MAKER - 07/14/2017 9:38 AM EST Inpatient - Discharge Summary Patient Name: Gregory Hoang Patient Age: 72 y.o. Birthdate: 1945 Language: Swiss Race: White Ethnicity: Not nor Admit Date: [...] , @ 1:20p Patient to follow-up with Line Walker/heart failure team in one week. An appointment will be made for you. You may call [phone] Patient to follow-up with Cardiac Surgery, Dr. Yuan Webber, in ~ 4 weeks with CXR, EKG. Inpatient Provider Contact Information: [facility] Section of Cardiac Surgery [facility] [address] FAX [phone] Discharge Diagnoses (Hospital Problems) Primary Diagnoses: CAD [...] SNARE performed by Nohemi Jaimes MD at [facility] ENDOSCOPY ??? PRO ENDOSCOPY W/VIDEO-ASST VEIN [...] by mouth daily. 90 tablet 3 07/05/2017 [id number] ??? ascorbic acid, vitamin C, (VITAMIN C) [...] hospital and ruled infor non-ST segment elevation [place]. This almost certainly represents the residual of [...] Hospital Course: Gregory Hoang was admitted to [facility] on 07/05/2017 via the Cardiology [...] not take or discontinue any prescription or iypz-uaj-icrfdjw medications without asking your doctor or pharmacist [...] have your insulin doses adjusted. [facility] [place] [place] Discharge Instructions: Call your doctor if: You have a fever of greater than 101 degrees, shaking chills, if you develop redness or drainage from your incision sites, or if you have questions. Please call your surgeon's office if you have any discharge or drainage from your chest incision. Your surgeon, Dr. Yuan Webber and/or the Cardiac Surgery Physician Flight Crew Scheduler Team may be reached at . Weight: [...] Dr. Yuan Webber. You may use a [place] Track or treadmill but avoid any pulling [...] with the surgeon. Do not ride motorcycles, Bleachers's tractors or horses. Avoid the use of [...] should resume a low fat, low cholesterol, [place] [employer] Diet/Diabetic diet. Driving: No driving [...] , @ 1:20p Patient to follow-up with Line Walker/heart failure team in one week. Appointment will be made for you. You may call [phone] Patient to follow-up with Cardiac Surgery, Dr. Yuan Webber, in ~ 4 weeks with CXR, EKG. Cardiac Rehabilitation: Gregory Hoang was seen today regarding participation in the outpatient Phase 2 Cardiac Rehabilitation at [facility]. The patient agrees to a referral to this program. The referral will be sent at discharge and the patient should be contacted by the Program within 1- 2 weeks from discharge. ?? Future Appointments and Orders Future Appointments Provider Department Dept Phone 09/07/2017 3:00 PM LAB, THREE L Lab 3L [facility] [phone] 09/07/2017 4:00 PM Luz Prescott MD Endocrinology at [place] [phone] Future Orders Complete By Expires EKG 12 Lead [EKG1 Custom] 08/14/2017 02/13/2018 Process Instructions: Scheduling Instructions: Questions: Which DH location will this be performed?: [place] Is a rhythm strip needed?: No If EKG Reason is Pre-op Evaluation, indicate diagnosis for surgery.: XR Chest PA & Lateral (Generic) [[id number] Custom] 08/14/2017 02/13/2018 Process Instructions: Scheduling Instructions: Questions: Where will study be performed?: [place] [facility] Portable exam?: Reason for exam and clinical history: CABG x 3 Other pertinent information: Stat read required?: Date of injury if applicable: Requested Time: Referral to Cardiac Rehab [WUM670 Custom] As directed Process Instructions: If no progress note charted, please enter Clinical details in comments. Scheduling Instructions: Questions: My question or request is: s/p CABG. Cardiac rehab at [facility] Referral to Home Health - at DISCHARGE [BJE7840 CPT(R)] As directed Process Instructions: Scheduling Instructions: Comments: DOCUMENTATION FOR VNA SERVICES (INCLUDING THOSE PATIENTS WITH MEDICARE COVERAGE REQUIRING HOME VNA SERVICES AND/OR HOSPICE SERVICES) PATIENT'S LOCATION: Gregory Hoang [address] [place] [address] [place] [id number] (home) Telephone Information: [place]'s Name: self In discussion with the attending physician, it is certified that this patient is under their care and that they, or a Nurse Practitioner, or Physician Flight Crew Scheduler who is working directly with them, had [...] M[facility] ([facility] [place] [employer]-is in [place] PHONE: [phone] FAX: [phone] RN orders: Cardiopulmonary assessment, incisional assessment, assess vital signs, assessment of rehab progress, medication management and effectiveness, home safety evaluation. Please draw INR if indicated and send result to:Dr Vicente [phone] PT ORDERS: Continue rehab for endurance, gait stability and strength with mobility and transfers. Home safety evaluation. Home exercise program if appropriate. Start of Care Date:24-48 hours after discharge SPECIAL INSTRUCTIONS: For any follow up questions, needs, or issues please call the Cardiac Surgery Office at [phone] FOR MEDICARE ONLY: (please delete this section [...] noted. Questions: Agency name and contact information: [facility] Patient location post discharge: home What services are requested: Registered Nurse Physical Therapy Start date: Responsible MD post discharge contact info: PCP Arrangements for VNA/home care: As above. VN RN OR PCP TO PLEASE REMOVE CHEST TUBE SUTURES ON OR AFTER 07/17/2017 Signed: Martha Teague APRN [facility] Section of Cardiac Surgery [facility] [place] [address] FAX [phone] Date: 07/14/2017 CC: MD Ivania Cr [place], PA [address] [place] [phone] documented in this encounter Discharge Instructions Discharge [...] have your insulin doses adjusted. [facility] [place] Patient InstructionsStMartha mcdonald APRN [...] not take or discontinue any prescription or giuz-xpr-ybedbqz medications without asking your doctor or pharmacist [...] have your insulin doses adjusted. [facility] Endocrine clinic office ? Discharge Instructions: ?? Call your doctor if: You have a fever of greater than 101 degrees, shaking chills, if you develop redness or drainage from your incision sites, or if you have questions. Please call your surgeon's office if you have any discharge or drainage from your chest incision. Your surgeon, Dr. Yuan Webber and/or the Cardiac Surgery Physician Flight Crew Scheduler Team may be reached at . ?? [...] Dr. Yuan Webber. You may use a [place] Track or treadmill but avoid any pulling [...] with the surgeon. Do not ride motorcycles, Bleachers's tractors or horses. Avoid the use of [...] should resume a low fat, low cholesterol, [place] Heart [employer] Diet/Diabetic diet. ?? Driving: No [...] @ 1:20p ?? Patient to follow-up with Line Walker/heart failure team in one week. An appointment has been made for you, you can call [phone] ?? Patient to follow-up with Cardiac Surgery, Dr. Yuan Webber, in ~ 4 weeks with CXR, EKG. ? Cardiac Rehabilitation: Gregory Hoang??was seen today regarding participation in the outpatient Phase 2 Cardiac Rehabilitation at [facility]. ?? The patient agrees to a referral to this program.? The referral will be sent at discharge and the patient should be contacted by the Program within 1- 2 weeks from discharge. ? Future Appointments and Orders Future Appointments Provider Department Dept Phone ?? 09/07/2017 3:00 PM LAB, THREE L Lab 3L [facility] [phone] ?? 09/07/2017 4:00 PM Luz Prescott MD Endocrinology at [place] [phone] Future Orders Complete By Expires ?? EKG 12 Lead [EKG1 Custom] 08/14/2017 02/13/2018 ?? Process Instructions: ? Scheduling Instructions: ? Questions: ? Which location will this be performed?: [place] ?? Is a rhythm strip needed?: No ?? If EKG Reason is Pre-op Evaluation, indicate diagnosis for surgery.: ?? XR Chest PA & Lateral (Generic) [[id number] Custom] 08/14/2017 02/13/2018 ?? Process Instructions: ? Scheduling Instructions: ? Questions: ? Where will study be performed?: [place] [facility] ?? Portable exam?: ?? Reason for exam and clinical history: CABG x 3 ?? Other pertinent information: ?? Stat read required?: ?? Date of injury if applicable: ?? Requested Time: ?? Referral to Cardiac Rehab [DBY341 Custom] As directed ? Process Instructions: ?? If no progress note charted, please enter Clinical details in comments. ?? Scheduling Instructions: ? Questions: ? My question or request is: s/p CABG. Cardiac rehab at [facility] ? Arrangements for VNA/home [...] RN - 07/14/2017 2:34 PM EST The patient/practice representative has been provided a list of Home Health Agencies/DME vendors which serve their preferred geographic area. A letter describing our affiliations was reviewed with them and theywere educated about their right to choose where referrals are placed. Patient requests referral to [facility] [employer]. PHONE: [phone] FAX: [phone] Expected date of discharge: 07/14 Referral routed to the Video Player Mechanic for matching with agency/vendor and to [...] have your insulin doses adjusted. [facility] office Kathie Carrera APRN [facility] Endocr[facility]ology Diabetes Management Pager [phone] 20 minutes of this 35 minute visit was spent with the patient in counseling on diabetes and treatment plan, reviewing all glucose and insulin data as well as relevant laboratory results with the patient, and coordination of care on the inpatient unit including nursing and primary team. Zulma Power RN - 07/14/2017 10:30 AM EST The patient/practice representative has been provided a list of Home Health Agencies/DME vendors which serve their preferred geographic area. A letter describing our affiliations was reviewed with them and theywere educated about their right to choose where referrals are placed. Patient requests referral to : Yasmani Munguia ([facility] [place] [employer]-is in [place]) PHONE: [phone] FAX: [phone]. Expected date of discharge: 07/14/17 Referral routed to the Video Player Mechanic for matching with agency/vendor and to [...] hours. If BG remains greater than 240, qxsznu36 units (no more than three times) &??call [...] to follow Katerin Azul APRN [facility] Endocrinology Diabetes Management Pager [phone] 15 minutes of this 25 minute visit [...] of infiltration/extravasation Discussed plan of care with CONTENT COORDINATOR and RN. Elevate exrtemity and apply [...] measuring tape and identifier in the photo) COMPLEX CARE NURSE CARING FOR THIS PATIENT WILL CONTINUE [...] measuring tape and identifier in the photo) COMPLEX CARE NURSE CARING FOR THIS PATIENT WILL CONTINUE [...] of infiltrates attached here. L Martha Teague, BRICK VENEER MAKER - 07/13/2017 8:01 AM EST Cardiac Surgery Progress Note: ID: [id number] 72 year old male POD#6 s/p CABGx3 [...] discharge. ?? I have met with the patient/practice representative to discuss discharge planning needs. I have provided the [facility], Office of Care Management letter from the Promotions Executive Producer pertaining to rehab referrals. I have also provided a letter describing our affiliations within the [facility] and educated them about their right to choose where referrals are placed. ?? I reviewed the different levels of rehab including SNF, swing, acute and LTAC with the patient/practice representative. ?? The patient/practice representative has been provided a list of facilities within their preferred geographic area. ?? I have requested that the patient/practice representative provide at least three choices for referral. ?? The patient/practice representative have requested referrals to: ?? [facility]. [facility] ?? 2. [facility] ?? 3. More to be entered ?? Expected date of discharge: 07/14 Note routed to Video Player Mechanic who will communicate referrals to facilities [...] hours. If BG remains greater than 240, xyrbfx71 units (no more than three times) & [...] hours. If BG remains greater than 240, xnmsto18 units (no more than three times) & call for new basal insulin orders. ??If less than 240 after two hours, give no insulin and resume prior schedule. Will continue to follow Katerin Azul APRN [facility] Endocrinology Diabetes Management Pager [phone] 20 minutes of this 35 minute visit was spent with the patient in counseling on diabetes and treatment plan, reviewing all glucose and insulin data as well as relevant laboratory results with the patient, and coordination of care on the inpatient unit including nursing and primary team. Makayla Stevenson APRN - 07/12/2017 9:52 AM EST Cardiac Surgery Progress Note: ID: [id number] 72 year old male POD#5 s/p CABGx3 [...] 07/11/2017 7:18 PM EST Patient arrived from [facility]. VSS. MSI dressing pulled off with [...] hours. If BG remains greater than 240, iwyioe14 units (no more than three times) & [...] AM EST Cardiac Surgery Progress Note: ID: [id number] 72 year old male POD#4 s/p CABGx3 [...] up in chair. O2 via NC Assessment: Gregroy Hoang is a 72 y.o. [...] hours. If BG remains greater than 240, zucrhu78 units (no more than three times) & [...] AM EST Cardiac Surgery Progress Note: ID: [id number] 72 year old male POD#3 s/p CABGx3 [...] Gas) No results found for: PHART, PO2ART, VCO1LUA Assessment/Plan: 72 year old male POD#3 s/p [...] Thao - 07/09/2017 6:29 PM EST Director Geophysical Laboratory Encounter Note Patient Name: Gregory Hoang : [id number] MR#: [id number] Admit Date: 07/05/2017 4:20 PM Hospital Day 4 days Narrative: Patient was sitting in chair, hugging heart pillow, opened his eyes, nodding to come into room Assessment: Patient was sleepy. Intervention and Outcome: Introduced punch press operator services and patient reached his hand out in appreciation. Follow-up: Director Geophysical Laboratory remains available for support. Time in Direct [...] 10:45 AM EST Report given to staffing coordinator to cover care Maddison Cee PA - 07/09/2017 9:00 AM EST Cardiac Surgery Progress Note: ID: [id number] 72 year old male POD#2 s/p CABGx3 [...] completed shifts: In: 7977.4 [I.V.:7477.4; Other:500] Out: 7615 [Urine:3000; Other:615] I- 4 L O- 2.7 [...] Attending Surgeon on rounds. Signed: STEPHANIE Iqbal [facility] Section of Cardiac Surgery Date: [...] when IABP d/c'ed. Gretchen Carolina, PT Pager [phone] Maddison Cee PA - 07/08/2017 11:27 AM EST Cardiac Surgery Progress Note: ID: [id number] 72 year old male POD#1 s/p CABGx3 [...] Attending Surgeon on rounds. Signed: STEPHANIE Iqbal [facility] Section of Cardiac Surgery Date: [...] in place in R femoral. No hematoma. GENERAL PRODUCTION WORKER- Intact Psych- Anxious Skin- Dry, no [...] intact. IABP in place in R femoral. GENERAL PRODUCTION WORKER- Intact Psych- Anxious Skin- Dry, no [...] note for details. DAPHNE SHAHID MD Pager [phone] Jet Mckenna MD - 07/05/2017 6:48 PM EST Preliminary Cardiac Catheterization Procedure Note: Procedure(s) performed: Left heart cath, IABP insertion Access: Right ACCESS REGISTRAR-->8fr IABP A time-out was conducted prior to [...] Shahid MD PCP: Lovely Vicente MD PCP#: [phone] Patient Active Problem List Diagnosis Code ??? [...] load with heparin drip and transferred to [facility]. While there, continued sob, question of chest pain. Stat TTE showing WMA diffusely and EF around 20%. No significant valvular disease. Taken to the computer lab para professional urgently for ongoing STEMI. [facility] Labs: INR 1.0 WBC [...] Medicine, PGY-2 Cardiology S1, Team Pager # [phone] CARDIOLOGY ATTENDING NOTE Patient: Gregory Hoang Date [...] amenable for PCI. DAPHNE SHAHID MD Pager [phone] documented in this encounter Miscellaneous Notes Consult Note - Daphne Shahid MD - 07/14/2017 11:46 AM EST Heart Failure Service Inpatient Consult Note Gregory Hoang Date of : 1945 Age: 72 y.o. Today's date: 07/14/17 PCP: Lovely Vicente MD SAMPLER FIRST: None Place of Service: C451-A Reason for [...] SNARE performed by Nohemi Jaimes MD at [facility] ENDOSCOPY ??? PRO ENDOSCOPY W/VIDEO-ASST VEIN [...] studies: EKG 07/14/17: NSR 75 bpm, CLINICAL LABORATORY SERVICE TEACHER anterior infarct, LAD CXR 07/11/17: FINDINGS: Sternotomy wires. The patient has been extubated, left chest tube removed, and [place]-Suzi catheter removed since the 07/07/2017 study. Atelectasis [...] was discussed with Zehra. Jaden Kelley MD Felt Hat Steamer Pager [phone] CARDIOLOGY ATTENDING NOTE Patient: Gregory Hoang Date [...] heart failure clinic. DAPHNE SHAHID MD Pager [phone] Plan of Care - Alden Chavarria, VICE PRESIDENT RISK MANAGEMENT - 07/14/2017 11:35 AM EST Problem: Patient [...] Discharge Disposition: home with assist Alden Chavarria, VICE PRESIDENT RISK MANAGEMENT Pager: [phone] Inpatient Physical Therapy Problem: Acute Rehab Services [...] sit/sit to supine -- Bed Mobility Goal, [place] Level supervision required -- Bed Mobility Goal, [...] - 3 days -- Gait Training Goal, [place] Level supervision required -- Gait Training Goal, [...] days -- Transfer Training Goal, Activity Type ncw-wf-ehwlp/bgrqf-uv-ueb;yoc-al-oawiq/vqmhh-ld-hrj;toilet -- Transfer Train Goal, [place] Level supervision required -- Transfer Training Goal, [...] keeping present for 2 days per family. Business Continuity Manager noted of frustrations, house keeping sent to room. Patient offered showered twice, refused. at bedside, frustrated that shower not complete, informed that patient had refused several times. requesting to see CONGRESSIONAL DISTRICT AIDE, paged sent to Martha, will come to bedside (middle of consult). not willing to wait, Martha notified that family had gone home. Encouraged to come for morning rounds a t 8am. Diabetes team at bedside - insulin adjustments made. Call cabello in reach. Continue to monitor. PLAN MOVING FORWARD: Ambulate, dressing changes BID, Please change drsg at 4am per Martha CONGRESSIONAL DISTRICT AIDE request. INDIVIDUALIZED FALL PREVENTION INTERVENTIONS: Patient-specific fall [...] levels on the lower side, 60ml of [place] juice given after a FS of 80. [...] Conf 07/13/17 0502 Interdisciplinary Rounds/Family Conf Participants counseling case manager;dietitian/nutrition services;nursing;occupational therapy;patient;pharmacy;physical therapy;physician Plan of [...] monitoring required during toileting and ADLs]: RN CONTENT COORDINATOR Surveillance [continuous indirect monitoring]: Barrett Monitor [...] Anticipated Discharge Disposition: home with assist Pager: [phone] CLARISSA SEGAL, PT 07/12/2017 Physical Therapy Rehabilitation [...] to sit/sit to supine Bed Mobility Goal, [place] Level supervision required Bed Mobility Goal, Additional Goal adheres to psternal precautions for transfer Goal: Gait Training Goal Stand Alone Therapy Goal Outcome: Ongoing (Interventions Implemented as Appropriate) 07/12/17 1225 Gait Training Goal Gait Training Goal, Date Established 07/12/17 Gait Training Goal, Time to Achieve 2 - 3 days Gait Training Goal, [place] Level supervision required Gait Training Goal, Assist [...] 3 days Transfer Training Goal, Activity Type for-bv-kbgjs/lmykw-fx-vza;kkj-hg-cctkt/zfjax-jg-hnb;toilet Transfer Train Goal, [place] Level supervision required Transfer Training Goal, Additional Goal adheres to sternal precautions during transfer Consult Note - Octavia Vaughn RN - 07/12/2017 10:50 AM EST [facility] Gregory Hoang was seen today regarding participation in the outpatient Phase 2 Cardiac Rehabilitation at [facility]. The patient agrees to [...] IV site, amio to other piv and SIGNAL PROCESSING ENGINEER at bedside to help assess, IV [...] staff, he stood and marched in place. [place] weak, wanting to sit back down. Remained [...] Health/Prescription Coverage: Primary Insurance: MEDICARE Secondary Insurance: [employer] Prescription Coverage: yes Preferred Pharmacy: [facility] [place] Other: none Primary Care Provider: Lovely Vicente MD [phone] Patient/Caregiver Goals of Treatment:live and get my breath back Potential Needs for Transition of Care: Rehab/SNF: [facility] Home Health: DME: TBD Dialysis: na Community Resources: available Transportation: yes Other: none Anticipated Barriers to Discharge/Special Considerations: none Plan: Likely SNF Rehab before home A member of the Care Management team will continue to monitor progress, follow for continuity of care and assist with transition of care planning. ERLIN Weiss Pager: [phone] Consult Note - Katerin Azul RN - [...] management and to provide a review of prison diabetes care. Diabetes History: Gregory Hoang has [...] potential to d/c gtt and start CF. manager terminal diabetes care: Medications - Outpatient treatment regimen recommendations pending based on the hospital course. Monitoring - continue BG tid ac & hs Diet - low fat/low carb diet Exercise - weight-bearing exercise 30 min/day, as tolerated Thank you for allowing us to provide care for your patient W/E coverage, Dr. Jeane Tatum, pager [phone] Katerin Azul APRN Endocrinology Diabetes Management Pager [phone] Plan of Care - Stephanie Goody RN - 07/08/2017 6:54 AM EST Problem: [...] - 07/07/2017 6:27 PM EST [facility] Operative Note Patient Name: Grgeory Hoang : [id number] MR#: [id number] Case Date: 07/07/2017 Surgeon: Surgeon(s) and Role: * Yuan Webber MD - Primary * Michael Drake PA - Physician Flight Crew Scheduler * Linda Flores PA - Physician Flight Crew Scheduler Preoperative diagnosis: 3VD Postoperative diagnosis: CAD, severe [...] Operative Note Patient Name: Gregory Hoang : [id number] MR#: [id number] Case Date: 07/07/2017 Surgeon: Surgeon(s) and Role: * Yuan Webber MD - Primary * Michael Drake PA - Physician Flight Crew Scheduler * Linda Flores PA - Physician Flight Crew Scheduler Preoperative diagnosis: 3VD Postoperative diagnosis: CAD, severe [...] major CV events such as , stroke, TX, repeat revascularization compared to PCI). In this [...] code status: Full Code Katty Hahn, MS3 [facility] Cardiology S1 (Pager [phone]) Plan of Care - Emelia Ibarra RN [...] hospital and ruled infor non-ST segment elevation [place]. This almost certainly represents the residual of [...] SETUP performed by Manny Mcknight MD at [facility] MAIN OR ??? PRO COLONOSCOPY, REMV LESN, SNARE 01/16/2014 COLONOSCOPY, POLYPECTOMY, REMOVAL LESION BY SNARE performed by Nohemi Jaimes MD at [facility] ENDOSCOPY ??? PRO THYROIDECTOMY 03/28/2013 THYROIDECTOMY, TOTAL OR COMPLETE performed by Manny Mcknight MD at [facility] MAIN OR Social History: Social History [...] with other involved physicians Yuan Webber MD [phone] Med Student Progress Note - Katty Hahn [...] major CV events such as , stroke, [place], repeat revascularization compared to PCI). In this [...] insulin drip - hold metformin - f/u [facility] ?? #Home Meds - continue levothyroxine 175mcg - CPAP at night ?? # Routine - DVT PPx: heparin drip - Diet: Healthy heart diet, NPO at midnight for CABG tomorrow - Code Status: FULL - Dispo: CVCC Katty Hahn, M3 [facility] Cardiology S1 (Pager [phone]) Plan of Care - Stephanie Godoy RN - 07/06/2017 5:00 AM EST Problem: Patient Care Overview Goal: Plan of Care Review 07/06/17 5816 Coping/Psychosocial Plan Of Care Reviewed With patient;family [...] Outcome: Ongoing (Interventions Implemented as Appropriate) 07/06/17 7716 Cardiac: ACS (Acute Coronary Syndrome) Problems Assessed [...] Dolan MD [facility] [address] [place] [address] (Wo rk) 05/28/2022 Laboratory Appointment Lab 05/28/2022 Office Visit Cardiology Zulma Dolan MD [facility] [place] [address] Liz Poole PA [facility] [place] [address] 06/10/2022 Office Visit Dermatology Laura Scherer MD [facility] [address] [place], [place] [address] (Wo rk) Scheduled Orders Name [...] procedure are i n the results section. OPHTHALMIC MEDICAL TECHNOLOGIST SCAN 07/15/2017 12:00 Res ults for this [...] 4:00 Results f or this ([facility] AM EST procedure [...] 7:40 Results f or this ([facility]) PM EST procedure are i n the [...] 2:10 Results f or this ([facility] PM EST procedure are i n the [...] AND SCREEN Routine 07/06/2017 12:00 ([facility] PM EST APTT STAT 07/06/2017 11:24 Results [...] 8:10 Results f or this ([facility] AM EST procedure are i n the [...] 2:20 Results f or this ([facility] AM EST procedure are i n the [...] 8:20 Results f or this ([facility]) PM EST procedure [...] 4:55 Results f or this ([facility]) PM EST procedure [...] 2017 EXAMINATION: XR CHEST PA AND LATERAL (ISBXIC) CLINICAL HISTORY: CABG x 3 TECHNIQUE: PA [...] Teague APRN IMG DX ORDERABLES SCAN DOC: OPHTHALMIC MEDICAL TECHNOLOGIST (07/15/2017 12:00 AM EST) Narrative 07/15/2017 12:00 [...] 65 - 199 [place] mg/dL [facility] Comment: [...] Organization Address City/State/ZIP Code Phon e Number [place] [id number] [facility] [address] POCT Glucose (07/14/2017 7:52 AM EST) athologist Signature POC Glucose 126 65 - 199 [facility] mg/dL [facility] [...] Address City/State/ZIP Code Phon e Number [address] (ABNORMAL) Prothrombin Time (07/14/2017 [...] Address City/State/ZIP Code Phon e Number [address] Potassium (07/14/2017 4:46 AM EST) athologist Signature Potassium 4.3 3.5 - 5.0 [facility] mmol/L [facility] Comment: [...] Address City/State/ZIP Code Phon e Number [address] POCT Glucose (07/14/2017 4:34 AM EST) athologist Signature POC Glucose 115 65 - 199 [facility] RYAN mg/dL [facility] Comment: [...] City/[facility]/ZIP Code Phon e Number [address] POCT Glucose (07/13/2017 11:33 PM EST) athologist Signature POC Glucose 132 65 - 199 [place] mg/dL [facility] Comment: [...] City/[facility]/ZIP Code Phon e Number [address] POCT Glucose (07/13/2017 9:25 PM EST) athologist Signature POC Glucose 121 65 - 199 [place] mg/dL [facility] Comment: [...] Address City/State/ZIP Code Phon e Number [address] POCT Glucose (07/13/2017 4:55 PM EST) P athologist Signature POC Glucose 79 65 - 199 [facility] RYAN mg/dL [facility] Comment: [...] Address City/State/ZIP Code Phon e Number [address] POCT Glucose (07/13/2017 11:16 AM EST) P athologist Signature POC Glucose 163 65 - 199 [place] mg/dL [facility] Comment: [...] Address City/State/ZIP Code Phon e Number [address] POCT Glucose (07/13/2017 8:07 AM EST) P athologist Signature POC Glucose 96 65 - 199 [place] mg/dL [facility] Comment: [...] City/[facility]/[place] [address] (ABNORMAL) Prothrombin Time (07/13/2017 [...] Wilson APRN HEMATOLOGY ORDERABLES Performing Organization Address City/[facility]/[place] [address] (ABNORMAL) Basic Metabolic Panel (non-fasting) (07/13/2017 4:26 AM EST) P athologist Signature Glucose Lvl 95 65 - 199 [facility] mg/dL [facility] [...] [facility] Estimated GFR 60 >=60 [facility] Comment: The reported eGFR should be multiplied b y 1.2 for patients. The MDRD is not an appropriate measure o f renal function for patients with body mass extremes or in patients with acute kidney failure. http://Otonomy/DHnkdep [email or web address]/DHMCnkf Specimen Anatomical Collection Method Collection Time Receive d Time (Source) Location / / Volume Laterality Blood specimen 07/13/2017 4:26 AM 017 4:46 (specimen) EST AM EST Resulting Agency Comment Spec In Lab Makayla Wilson APRN CHEMISTRY ORDERABLES Performing Organization Address City/[facility]/ZIP Code Phon e Number [address] POCT Glucose (07/13/2017 3:52 AM EST) P athologist Signature POC Glucose 93 65 - 199 [facility] mg/dL [facility] [...] Address City/State/[place] [address] POCT Glucose (07/13/2017 12:21 AM EST) athologist Signature POC Glucose 80 65 - 199 [place] mg/dL [facility] Comment: [...] Address City/State/ZIP Code Phon e Number [address] POCT Glucose (07/12/2017 8:22 PM EST) athologist Signature POC Glucose 119 65 - 199 [facility] RY[place] mg/dL [facility] Comment: [...] Address City/State/ZIP Code Phon e Number [address] POCT Glucose (07/12/2017 4:02 PM EST) athologist Signature POC Glucose 114 65 - 199 [facility] R[place] mg/dL [facility] Comment: [...] Address City/State/[place] [address] POCT Glucose (07/12/2017 11:28 AM EST) athologist Signature POC Glucose 164 65 - 199 [facility] Comment: [...] Address City/State/ZIP Code Phon e Number [address] POCT Glucose (07/12/2017 7:34 AM EST) athologist Signature POC Glucose 109 65 - 199 [facility] mg/dL [facility] Comment: [...] Address City/State/[place] [address] (ABNORMAL) Basic Metabolic Panel (non-fasting) (07/12/2017 4:11 AM EST) athologist Signature Glucose Lvl 92 65 - 199 [facility] Comment: [...] or in patients with acute kidney failure. http://Otonomy/DHnkdep [email or web address]/DHnkf Specimen Anatomical Collection Method Collection Time Receive d Time (Source) Location / / Volume Laterality Blood specimen 07/12/2017 4:11 AM 017 8:57 (specimen) EST AM EST Resulting Agency Comment Spec In Lab Makayla Katie QUINONES CHEMISTRY ORDERABLES Performing Organization Address City/State/ZIP [place] [address] (ABNORMAL) Prothrombin Time (07/12/2017 [...] Wilson APRN HEMATOLOGY ORDERABLES Performing Organization Address City/[facility]/[place] [address] Potassium (07/12/2017 4:11 AM EST) athologist Signature Potassium 3.8 3.5 - 5.0 [facility] mmol/L [facility] Comment: [...] Wilson APRN CHEMISTRY ORDERABLES Performing Organization Address City/[facility]/[place] [address] POCT Glucose (07/12/2017 4:10 AM EST) athologist Signature POC Glucose 90 65 - 199 [facility] Comment: [...] City/[facility]/[place] [address] POCT Glucose (07/11/2017 11:57 PM EST) athologist Signature POC Glucose 98 65 - 199 [facility]/dL [facility] Comment: [...] Address City/State/[place] [address] POCT Glucose (07/11/2017 8:32 PM EST) P athologist Signature POC Glucose 146 65 - 199 [facility] mg/dL [facility] [...] Address City/State/[place] [address] XR Chest PA & [...] e xtubated, left chest tube removed, and [place]-Suzi catheter removed since the study. Atelectasis at [...] e xtubated, left chest tube removed, and [place]-Suzi catheter removed since the study. Atelectasis at [...] 223 (H) 65 - 199 [facility] mg/dL [facility] Comment: [...] City/[facility]/[place] [address] POCT Glucose (07/11/2017 11:55 AM EST) athologist Signature POC Glucose 176 65 - 199 [place] mg/dL [facility] Comment: [...] Address City/State/[place] [address] POCT Glucose (07/11/2017 7:53 AM EST) athologist Signature POC Glucose 189 65 - 199 [facility] Comment: Supplemental ranges: <140 mg/dL before meals <180 mg/dL all other times of the day Specimen Anatomical Collection Method Collection Time Receive d Time (Source) Location / / Volume Laterality Blood specimen 07/11/2017 7:53 AM 017 7:53 (specimen) EST AM EST Yuan Webber MD POINT OF CARE TEST ORDERABLE S Performing Organization Address City/[facility]/ZIP [place] Phon e Number [address] POCT Glucose (07/11/2017 4:22 AM EST) athologist Signature POC Glucose 151 65 - 199 [facility] Comment: Supplemental ranges: <140 mg/dL before meals <180 mg/dL all other times of the day Specimen Anatomical Collection Method Collection Time Receive d Time (Source) Location / / Volume Laterality Blood specimen 07/11/2017 4:22 AM 017 4:22 (specimen) EST AM EST Yuan Webber MD POINT OF CARE TEST ORDERABLE S Performing Organization Address City/[facility] Phon e Number [address] Potassium (07/11/2017 2:20 AM EST) athologist Signature Potassium 4.5 3.5 - 5.0 [facility] mmol/L [facility] Comment: [...] Address City/State/ZIP Code Phon e Number [address] POCT Glucose (07/11/2017 12:17 AM EST) athologist Signature POC Glucose 162 65 - 199 [place] mg/dL [facility] Comment: [...] City/[facility]/ZIP Code Phon e Number [address] POCT Glucose (07/10/2017 8:47 PM EST) athologist Signature POC Glucose 191 65 - 199 [place] mg/dL [facility] Comment: [...] City/[facility]/ZIP Code Ph[place] [address] POCT Glucose (07/10/2017 4:06 PM EST) athologist Signature POC Glucose 131 65 - 199 [place] mg/dL [facility] Comment: [...] Address City/State/[place] [address] POCT Glucose (07/10/2017 3:08 PM EST) athologist Signature POC Glucose 151 65 - 199 [place] mg/dL [facility] Comment: [...] Address City/State/ZIP Code Phon e Number [address] POCT Glucose (07/10/2017 2:25 PM EST) athologist Signature POC Glucose 146 65 - 199 [facility] [place] mg/dL [facility] Comment: [...] Address City/State/ZIP Code Phon e Number [address] POCT Glucose (07/10/2017 1:23 PM EST) athologist Signature POC Glucose 166 65 - 199 [place] mg/dL [facility] Comment: [...] Address City/State/[place] [address] POCT Glucose (07/10/2017 11:52 AM EST) P athologist Signature POC Glucose 157 65 - 199 [place] mg/dL [facility] Comment: [...] Address City/State/ZIP Code Phon e Number [address] POCT Glucose (07/10/2017 11:01 AM EST) athologist Signature POC Glucose 158 65 - 199 [facility] R[facility] mg/dL [facility] Comment: [...] Address City/State/ZIP Code Phon e Number [address] POCT Glucose (07/10/2017 9:54 AM EST) athologist Signature POC Glucose 160 65 - 199 [place] mg/dL [facility] Comment: [...] Address City/State/[place] [address] POCT Glucose (07/10/2017 8:58 AM EST) athologist Signature POC Glucose 183 65 - 199 [place] mg/dL [facility] Comment: [...] Address City/State/[place] [address] POCT Glucose (07/10/2017 8:01 AM EST) athologist Signature POC Glucose 173 65 - 199 [place] mg/dL [facility] Comment: [...] Address City/State/ZIP Code Phon e Number [address] POCT Glucose (07/10/2017 7:05 AM EST) athologist Signature POC Glucose 166 65 - 199 [place] mg/dL [facility] Comment: [...] Address City/State/ZIP Code Phon e Number [address] POCT Glucose (07/10/2017 6:00 AM EST) P athologist Signature POC Glucose 162 65 - 199 [facility] mg/dL [facility] [...] Organization Address City/State/ZIP [place] [address] (ABNORMAL) Differential, Automated (07/10/2017 4:28 AM EST) Patholo gist Method Time Signature Neutrophils % 87.9 % [facility] Neutr Abs (ANC) 10.70 (H) 1.70 - [facility] 6.10 [facility] x10(3)/[facility] L LABORATORY Lymphocytes % 3.9 % [facility] Lymphocytes Abs 0.5 (L) 0.9 - 3.2 [facility] x10(3)/[facility] LABORATORY Monocytes % 7.0 % [facility] Monocyte Abs 0.8 0.3 - 0.9 [facility] x10(3)/[facility] LABORATORY Eosinophils % 0.3 % [facility] Eosinophils Abs 0.0 0.0 - 0.4 [facility] x10(3)/[facility] LABORATORY Basophils % 0.2 % [facility] Basophils Abs 0.0 0.0 - 0.1 [facility] x10(3)/[facility] LABORATORY Immature Gran % 0.70 % [facility] [...] Organization Address City/State/ZIP [place] [address] (ABNORMAL) Hemogram (07/10/2017 4:28 AM EST) Analysis Performed At Patho logist Time Signature WBC 12.2 (H) 4.0 - 9.5 [facility] x10(3)/[facility] LABORATORY RBC 3.31 (L) 4.58 - [facility] 5.54 [facility] x10(6)/[facility] LABORATORY Hemoglobin 9.8 (L) 13.7 - [facility] 16.5 gm/dL [facility] Hematocrit 30.0 (L) 40.5 - [facility] 48.5 % [facility] MCV 90.6 82.9 - [facility] 93.1 [facility] LABORATORY MCH 29.6 27.5 - [facility] 32.1 pg [facility] MCHC 32.7 32.0 - [facility] 35.7 gm/dL [facility] Platelets 135 (L) 145 - 357 [facility] x10(3)/[facility] LABORATORY RDWSD 50.8 (H) 36.0 - [facility] 45.0 [facility] LABORATORY RDWCV 15.4 (H) 11.4 - [facility] 13.8 % [facility] MPV 10.0 7.6 - 12.9 [facility] LABORATORY nRBC % Auto 0.0 % [facility] nRBC Abs Auto 0.000 0.000 - [facility] 0.000 [facility] x10(3)/[facility] LABORATORY Specimen Anatomical Collection Method Collection Time Receive d Time (Source) Location / / Volume Laterality Blood specimen 07/10/2017 4:28 AM 017 4:36 (specimen) EST AM EST Resulting Agency Comment Spec In Lab Yuan Webber MD HEMATOLOGY ORDERABLES Performing Organization Address City/[facility]/ZIP [place] [address] (ABNORMAL) Basic Metabolic Panel (non-fasting) (07/10/2017 4:28 AM EST) P athologist Signature Glucose Lvl 178 65 - 199 [facility] mg/dL [facility] LABORATORY [...] [facility] Estimated GFR 60 >=60 [facility] Comment: The reported eGFR should be multiplied b y 1.2 for patients. The MDRD is not an appropriate measure o f renal function for patients with body mass extremes or in patients with acute kidney failure. http://[email or web address]/DHnkdep http://H[employer] Community.Zarpo/DHMCnkf Specimen Anatomical Collection Method Collection Time Receive d Time (Source) Location / / Volume Laterality Blood specimen 07/10/2017 4:28 AM 017 4:36 (specimen) EST AM EST Resulting Agency Comment Spec In Lab Yuan Webber MD CHEMISTRY ORDERABLES Performing Organization Address City/[facility]/[place] [address] POCT Glucose (07/10/2017 4:26 AM EST) P athologist Signature POC Glucose 176 65 - 199 [facility] mg/dL [facility] Comment: [...] Address City/State/[place] [address] (ABNORMAL) POCT Glucose (07/10/2017 3:06 AM EST) athologist Signature POC Glucose 204 (H) 65 - 199 [facility] mg/dL [facility] Comment: [...] Address City/State/[place] [address] (ABNORMAL) POCT Glucose (07/10/2017 2:10 AM EST) athologist Signature POC Glucose 203 (H) 65 - 199 [facility] mg/dL [facility] Comment: [...] Address City/State/ZIP Code Phon e Number [address] POCT Glucose (07/10/2017 1:09 AM EST) P athologist Signature POC Glucose 196 65 - 199 [place] mg/dL [facility] Comment: [...] Address City/State/ZIP Code Phon e Number [address] POCT Glucose (07/10/2017 12:10 AM EST) athologist Signature POC Glucose 173 65 - 199 [place] mg/dL [facility] Comment: [...] Address City/State/ZIP Code Phon e Number [address] POCT Glucose (07/09/2017 11:01 PM EST) athologist Signature POC Glucose 140 65 - 199 [place] mg/dL [facility] Comment: [...] Address City/State/[place] [address] POCT Glucose (07/09/2017 10:05 PM EST) athologist Signature POC Glucose 144 65 - 199 [facility] mg/dL [facility] Comment: [...] Address City/State/ZIP Code Phon e Number [address] POCT Glucose (07/09/2017 9:31 PM EST) athologist Signature POC Glucose 121 65 - 199 [place] mg/dL [facility] Comment: [...] Address City/State/ZIP Code Phon e Number [address] POCT Glucose (07/09/2017 9:03 PM EST) athologist Signature POC Glucose 98 65 - 199 [place] mg/dL [facility] Comment: [...] Address City/State/ZIP Code Phon e Number [address] POCT Glucose (07/09/2017 8:09 PM EST) athologist Signature POC Glucose 117 65 - 199 [place] mg/dL [facility] Comment: [...] Address City/State/[place] [address] POCT Glucose (07/09/2017 5:40 PM EST) athologist Signature POC Glucose 155 65 - 199 [place] mg/dL [facility] Comment: [...] Address City/State/[place] [address] POCT Glucose (07/09/2017 4:24 PM EST) athologist Signature POC Glucose 164 65 - 199 [place] mg/dL [facility] Comment: [...] Address City/State/ZIP Code Phon e Number [address] POCT Glucose (07/09/2017 3:19 PM EST) athologist Signature POC Glucose 166 65 - 199 [place] mg/dL [facility] Comment: [...] Address City/State/[place] [address] POCT Glucose (07/09/2017 2:26 PM EST) athologist Signature POC Glucose 179 65 - 199 [facility] mg/dL [facility] Comment: [...] Address City/State/[place] [address] (ABNORMAL) POCT Glucose (07/09/2017 1:29 PM EST) athologist Signature POC Glucose 210 (H) 65 - 199 [place] mg/dL [facility] Comment: [...] Address City/State/[place] [address] POCT Glucose (07/09/2017 12:20 PM EST) athologist Signature POC Glucose 172 65 - 199 [place] mg/dL [facility] Comment: [...] Address City/State/ZIP Code Phon e Number [address] POCT Glucose (07/09/2017 11:24 AM EST) athologist Signature POC Glucose 156 65 - 199 [facility] mg/dL [facility] Comment: [...] Address City/State/ZIP Code Phon e Number [address] POCT Glucose (07/09/2017 11:11 AM EST) athologist Signature POC Glucose 172 65 - 199 [place] mg/dL [facility] Comment: [...] Address City/State/ZIP Code Phon e Number [address] POCT Glucose (07/09/2017 10:08 AM EST) athologist Signature POC Glucose 176 65 - 199 [place] mg/dL [facility] Comment: [...] Address City/State/[place] [address] POCT Glucose (07/09/2017 8:02 AM EST) P athologist Signature POC Glucose 178 65 - 199 [facility] mg/dL [facility] LABORATORY [...] Address City/State/[place] [address] (ABNORMAL) BLOOD GAS 2 ARTERIAL (07/09/2017 5:37 AM EST) Analysis Performed At Patho logist Time Signature pH Art 7.36 7.35 - [facility] 7.45 [facility] pCO2 Art 38 35 - 45 [facility] mmHg [facility] pO2 Art 79 (L) 85 - 104 [facility] mmHg [facility] HCO3 Art 20.9 20.0 - [facility] 26.0 [facility] mmol/L [facility] BE Art -4.6 (L) -3.0 - 3.0 [facility] mmol/L [facility] Hgb Blood Gas 10.5 (L) 13.7 - [facility] 16.5 gm/dL [facility] O2HB Art 93.8 (L) 94.0 - [facility] 97.0 % [facility] COHB Art 0.3 % [facility] [...] Organization Address City/State/Z[place] [address] POCT Glucose (07/09/2017 3:27 AM EST) P athologist Signature POC Glucose 192 65 - 199 [facility] mg/dL [facility] [...] Organization Address City/State/ZIP [place] [address] (ABNORMAL) Basic Metabolic Panel (non-fasting) (07/09/2017 2:30 AM EST) P athologist Signature Glucose Lvl 179 65 - 199 [facility] mg/dL [facility] [...] or in patients with acute kidney failure. [email or web address] [email or web address] Specimen Anatomical Collection Method Collection Time Receive d Time (Source) Location / / Volume Laterality Blood specimen Venous Draw / 07/09/2017 2:30 AM 2016 2:42 (specimen) Unknown EST AM EST Resulting Agency Comment Spec In Lab Yuan Webber MD CHEMISTRY ORDERABLES Performing Organization Address City/State/[place] [address] (ABNORMAL) Potassium (07/09/2017 2:30 AM EST) P athologist Signature Potassium 5.1 (H) 3.5 - 5.0 [facility] mmol/L [facility] Comment: [...] Webber MD CHEMISTRY ORDERABLES Performing Organization Address City/[facility]/ZIP [place] [address] (ABNORMAL) Hemogram (07/09/2017 2:30 AM EST) Analysis Performed At Patho logist Time Signature WBC 12.5 (H) 4.0 - 9.5 [place] [facility] x10(3)/[facility] LABORATORY RBC 3.38 (L) 4.58 - [place] 5.54 [facility] x10(6)/[facility] LABORATORY Hemoglobin 10.1 (L) 13.7 - [place] 16.5 gm/dL [facility] Hematocrit 30.3 (L) 40.5 - [place] 48.5 % [facility] MCV 89.6 82.9 - [place] [facility] 93.1 [facility] LABORATORY MCH 29.9 27.5 - [place] [facility] 32.1 pg [facility] MCHC 33.3 32.0 - [place] 35.7 gm/dL [facility] Platelets 127 (L) 145 - 357 [place] x10(3)/[facility] LABORATORY RDWSD 49.3 (H) 36.0 - [place] [facility] 45.0 [facility] LABORATORY RDWCV 15.2 (H) 11.4 - [place] 13.8 % [facility] MPV 9.9 7.6 - 12.9 [facility] LABORATORY nRBC % Auto 0.0 % [facility] nRBC Abs Auto 0.000 0.000 - [place] [facility] 0.000 [facility] x10(3)/[facility] LABORATORY Specimen Anatomical Collection Method Collection Time Receive d Time (Source) Location / / Volume Laterality Blood specimen 07/09/2017 2:30 AM 017 2:41 (specimen) EST AM EST Resulting Agency Comment Spec In Lab Yuan Webber MD HEMATOLOGY ORDERABLES Performing Organization Address City/State/ZIP Code Phon e Number [address] POCT Glucose (07/09/2017 2:10 AM EST) athologist Signature POC Glucose 169 65 - 199 [facility]/dL [facility] Comment: [...] Address City/State/ZIP Code Phon e Number [address] POCT Glucose (07/09/2017 1:01 AM EST) athologist Signature POC Glucose 173 65 - 199 [facility] mg/dL [facility] Comment: [...] Address City/State/ZIP Code Phon e Number [address] Blood culture (07/09/2017 12:40 AM EST) [facility] TCHO Method Time Signature Blood Culture No growth [facility] at 5 days. [facility] Specimen Anatomical Collection Method Collection Time Receive d Time (Source) Location / / Volume Laterality Blood specimen STRUCTURE OF RIGHT 07/09/2017 12:40 3:58 (specimen) UPPER LIMB / AM EST AM EST Unknown Resulting Agency Comment Spec In Lab Yuan Webber MD MICROBIOLOGY - BLOOD ORDERAB LES Performing Organization Address City/[facility]/ZIP Code Phon e Number [address] Blood culture (07/09/2017 12:30 AM EST) [facility] TCHO Method Time Signature Blood Culture No growth [facility] at 5 days. [facility] Specimen Anatomical Collection Method Collection Time Receive d Time (Source) Location / / Volume Laterality Blood specimen STRUCTURE OF LEFT 07/09/2017 12:30 06/25 3:59 (specimen) UPPER LIMB / AM EST AM EST Unknown Resulting Agency Comment Spec In Lab Yuan Webber MD MICROBIOLOGY - BLOOD ORDERAB LES Performing Organization Address City/[facility]/[place] [address] (ABNORMAL) Urinalysis Microscopic Exam [...] Address City/State/ZIP Code Phon e Number [address] (ABNORMAL) Urinalysis with reflex Culture (07/09/2017 12:05 AM EST) Patholo gist Method Time Signature Glucose UA Negative Negative [facility]dL [facility] Protein UA 30 (A) Negative [facility] mg/dL [facility] Bilirubin UA Negative Negative [facility] mg/dL [facility] Comment: Clinical correlation required [...] [facility] Leukocytes UA Negative Negative [facility] LABORATORY Appearance UA Hazy (A) Clear [facility] Spec [place] UA 1.025 1.002 - 1.030 [facility] Color UA Yellow Yellow [facility] Culture Reflexed No [facility] Specimen (Source) Anatomical Collection Method Collection Time Re ceived Time Location / / Volume Laterality Urine specimen 07/09/2017 12:05 7 obtained via AM EST 12:39 AM EST indwelling urinary catheter (specimen) Resulting Agency Comment Spec In Lab Yuan Webber MD URINE ORDERABLES Performing Organization Address City/State/ZIP Code Phon e Number [place] [id number] [facility] [address] Drive POCT Glucose (07/08/2017 11:01 PM EST) P athologist Signature POC Glucose 191 65 - 199 [facility] mg/dL [facility]ORY [...] Address City/State/[place] [address] POCT Glucose (07/08/2017 10:04 PM EST) P athologist Signature POC Glucose 198 65 - 199 [facility] mg/dL [facility] Comment: [...] Address City/State/[place] [address] Prepare Albumin 5% in [...] Address City/State/ZIP Code Phon e Number [address] POCT Glucose (07/08/2017 8:28 PM EST) P athologist Signature POC Glucose 195 65 - 199 [facility] mg/dL [facility] Comment: [...] City/[facility]/[place] [address] (ABNORMAL) POCT Glucose (07/08/2017 7:13 PM EST) P athologist Signature POC Glucose 220 (H) 65 - 199 [facility] mg/dL [facility] Comment: [...] City/[facility]/[place] [address] POCT Glucose (07/08/2017 5:04 PM EST) P athologist Signature POC Glucose 147 65 - 199 [facility] mg/dL [facility] Comment: [...] Address City/State/[place] [address] (ABNORMAL) BLOOD GAS 2 ARTERIAL (07/08/2017 4:13 PM EST) Analysis Performed At Patho logist Time Signature pH Art 7.38 7.35 - [facility] 7.45 [facility] pCO2 Art 36 35 - 45 [facility] LABORATORY pO2 Art 91 85 - 104 [facility] LABORATORY HCO3 Art 20.9 20.0 - [facility] 26.0 [facility] mmol/L [facility] BE Art -4.2 (L) -3.0 - 3.0 [facility] mmol/L [facility] Hgb Blood Gas 11.7 (L) 13.7 - [facility] 16.5 gm/dL [facility] O2HB Art 95.1 94.0 - [facility] 97.0 % [facility] COHB Art 0.6 % [facility] [...] Organization Address City/State/Z[place] [address] POCT Glucose (07/08/2017 4:01 PM EST) athologist Signature POC Glucose 148 65 - 199 [place] mg/dL [facility] Comment: [...] Address City/State/ZIP Code Phon e Number [address] POCT Glucose (07/08/2017 3:21 PM EST) athologist Signature POC Glucose 118 65 - 199 [facility] mg/dL [facility] Comment: [...] Address City/State/ZIP Code Phon e Number [address] POCT Glucose (07/08/2017 2:01 PM EST) athologist Signature POC Glucose 129 65 - 199 [place] [facility] mg/dL [facility] Comment: [...] Address City/State/ZIP Code Phon e Number [address] POCT Glucose (07/08/2017 11:53 AM EST) athologist Signature POC Glucose 156 65 - 199 [facility] mg/dL [facility] Comment: [...] Address City/State/[place] [address] POCT Glucose (07/08/2017 11:04 AM EST) athologist Signature POC Glucose 181 65 - 199 [facility] mg/dL [facility] Comment: [...] City/[facility]/[place] [address] (ABNORMAL) POCT Glucose (07/08/2017 9:24 AM EST) athologist Signature POC Glucose 203 (H) 65 - 199 [facility] mg/dL [facility] Comment: [...] Address City/State/[place] [address] APTT (07/08/2017 8:40 AM EST) athologist Signature PTT 33 25 - 35 sec [facility] Comment: The recommended therapeutic range for fu ll dose, unfractionated heparin at [facility] is 80 ? 114 seconds. The use [...] Webber MD HEMATOLOGY ORDERABLES Performing Organization Address City/[facility]/[place] [address] (ABNORMAL) Prothrombin Time (07/08/2017 [...] Address City/State/[place] [address] (ABNORMAL) POCT Glucose (07/08/2017 7:38 AM EST) athologist Signature POC Glucose 232 (H) 65 - 199 [facility] mg/dL [facility] [...] Address City/State/[place] [address] (ABNORMAL) POCT Glucose (07/08/2017 7:07 AM EST) athologist Signature POC Glucose 234 (H) 65 - 199 [place] [facility] mg/dL [facility] Comment: [...] Address City/State/[place] [address] (ABNORMAL) POCT Glucose (07/08/2017 6:04 AM EST) athologist Signature POC Glucose 225 (H) 65 - 199 [place] mg/dL [facility] Comment: [...] Address City/State/[place] [address] (ABNORMAL) POCT Glucose (07/08/2017 5:31 AM EST) athologist Signature POC Glucose 216 (H) 65 - 199 [place] mg/dL [facility] Comment: [...] Address City/State/[place] [address] (ABNORMAL) POCT Glucose (07/08/2017 4:52 AM EST) P athologist Signature POC Glucose 257 (H) 65 - 199 [facility] mg/dL [facility] [...] City/[facility]/[place] [address] (ABNORMAL) BLOOD GAS 2 ARTERIAL (07/08/2017 4:04 AM EST) Analysis Performed At Patho logist Time Signature pH Art 7.30 (L) 7.35 - [facility] 7.45 [facility] pCO2 Art 41 35 - 45 [facility] mmHg [facility] pO2 Art 83 (L) 85 - 104 [facility] mmHg [facility] HCO3 Art 19.6 (L) 20.0 - [facility] 26.0 [facility] mmol/L [facility] BE Art -6.8 (L) -3.0 - 3.0 [facility] mmol/L [facility] Hgb Blood Gas 12.2 (L) 13.7 - [facility] 16.5 gm/dL [facility] O2HB Art 93.5 (L) 94.0 - [facility] 97.0 % [facility] COHB Art 0.4 % [facility] [...] WB 4.4 (Critical) 0.5 - 2.2 mmol/L [facility] Comment: Noted by instrument technician. FIO2 Art 40 % [facility] PF Ratio Art 208 [facility] Specimen Anatomical Collection Method Collection Time Receive d Time (Source) Location / / Volume Laterality Blood specimen 07/08/2017 4:04 AM 017 4:04 (specimen) EST AM EST Daphne Shahid MD CHEMISTRY ORDERABLES Performing Organization Address City/[facility]/ZIP [place] [address] Scan, Peripheral Blood (07/08/2017 [...] Webber MD HEMATOLOGY ORDERABLES Performing Organization Address City/[facility]/ZIP [place] [address] (ABNORMAL) Differential, Automated (07/08/2017 4:00 AM EST) [facility] Method Time Signature Neutrophils % 85.4 % [facility] Neutr Abs (ANC) 16.07 (H) 1.70 - [facility] 6.10 [facility] x10(3)/[facility] L LABORATORY Lymphocytes % 3.5 % [facility] Lymphocytes Abs 0.6 (L) 0.9 - 3.2 [facility] x10(3)/[facility] LABORATORY Monocytes % 10.4 % [facility] Monocyte Abs 2.0 (H) 0.3 - 0.9 [facility] x10(3)/[facility] LABORATORY Eosinophils % 0.0 % [facility] Eosinophils Abs 0.0 0.0 - 0.4 [facility] x10(3)/[facility] LABORATORY Basophils % 0.1 % [facility] Basophils Abs 0.0 0.0 - 0.1 [facility] x10(3)/[facility] LABORATORY Immature Gran % 0.60 % [facility] [...] Organization Address City/State/Z[place] [address] (ABNORMAL) Hemogram (07/08/2017 4:00 AM EST) Analysis Performed At Patho logist Time Signature WBC 18.8 (H) 4.0 - 9.5 [facility] x[facility](3[facility] LABORATORY RBC 4.00 (L) 4.58 - [facility] 5.54 [facility] x10(6)/[facility] LABORATORY Hemoglobin 11.9 (L) 13.7 - [facility] 16.5 gm/dL [facility] Hematocrit 35.9 (L) 40.5 - [facility] 48.5 % [facility] MCV 89.8 82.9 - [facility] 93.1 [facility] LABORATORY MCH 29.8 27.5 - [facility] 32.1 pg [facility] MCHC 33.1 32.0 - [facility] 35.7 gm/dL [facility] Platelets 232 145 - 357 [facility] x10(3)/[facility] LABORATORY RDWSD 47.6 (H) 36.0 - [place] 45.0 [facility] LABORATORY RDWCV 14.5 (H) 11.4 - [facility] RYAN 13.8 % [facility]ORY MPV 9.5 7.6 - 12.9 [facility] nRBC % Auto 0.0 % [facility] nRBC Abs Auto 0.000 0.000 - [place] [facility] 0.000 [facility] x10(3)/[facility] LABORATORY Specimen Anatomical Collection Method Collection Time Receive d Time (Source) Location / / Volume Laterality Blood specimen 07/08/2017 4:00 AM 017 4:09 (specimen) EST AM EST Resulting Agency Comment Spec In Lab Yuan Webber MD HEMATOLOGY ORDERABLES Performing Organization Address City/State/Z[place] [address] (ABNORMAL) Electrolytes panel (07/08/2017 4:00 AM EST) P athologist Signature Sodium 139 135 - 145 [facility] mmol/L [facility] Potassium 4.7 3.5 - 5.0 [facility] mmol/L [facility] Comment: result rechecked-JLK Please note: [...] Organization Address City/State/Z[place] [address] (ABNORMAL) Cardiac Enzymes (LEB/CGP) (07/08/2017 4:00 AM EST) P athologist Signature Troponin-T 1.88 (H) 0.00 - [facility] 0.00 ng/mL [facility] Comment: The 99th percentile for Troponin T is le ss than 0.01 ng/mL, any detectable cTnT concentration using this assay should be considered elevated. According to the third universal definit ion of myocardial infarction the following criteria with a clinical prese ntation consistent with acute myocardial ischemia meets the diagnosis for a myocardial infarction ([place]). Detection of a rise and/or fall of [...] additional sample may be indicated. Reference: Third [place] Definition of Myocardial Infarction. Journal of the [place] [employer] 2012;60:1581-98 CK, Total 413 (H) 0 - 200 unit/L [facility] Comment: result rechecked-JLK Specimen Anatomical Collection Method Collection Time Receive d Time (Source) Location / / Volume Laterality Blood specimen 07/08/2017 4:00 AM 017 4:09 (specimen) EST AM EST Resulting Agency Comment Spec In Lab Yuan Webber MD CHEMISTRY ORDERABLES Performing Organization Address City/[facility]/ZIP Code Phon e Number [address] (ABNORMAL) Glucose, fasting (07/08/2017 4:00 AM EST) athologist Signature Glucose 287 (H) 65 - 99 [facility] Fasting mg/dL [facility] [...] of Diabetes Mellitus, Position Statement from the [place] [employer]. ??Diabete s Care, Volume 33, Supplement 1, Jul 2009 Specimen Anatomical Collection Method Collection Time Receive d Time (Source) Location / / Volume Laterality Blood specimen 07/08/2017 4:00 AM 017 4:09 (specimen) EST AM EST Resulting Agency Comment Spec In Lab Yuan Webber MD CHEMISTRY ORDERABLES Performing Organization Address City/[facility]/ZIP [place] [address] (ABNORMAL) Creatinine (07/08/2017 4:00 AM EST) Analysis Performed At Patho logist Time Signature Creatinine 1.55 (H) 0.80 - [facility] 1.50 mg/dL [facility] Estimated GFR 44 (L) >=60 [facility] Comment: The reported eGFR should be multiplied b y 1.2 for patients. The MDRD is not an appropriate measure o f renal function for patients with body mass extremes or in patients with acute kidney failure. [email or web address] [email or web address] Specimen Anatomical Collection Method Collection Time Receive d Time (Source) Location / / Volume Laterality Blood specimen 07/08/2017 4:00 AM 017 4:09 (specimen) EST AM EST Resulting Agency Comment Spec In Lab Yuan Webber MD CHEMISTRY ORDERABLES Performing Organization Address City/[facility]/ZIP [place] Phon e Number [address] BUN (07/08/2017 4:00 AM EST) P athologist Signature BUN 16 10 - 20 [facility] mg/dL [facility] Specimen Anatomical Collection Method Collection Time Receive d Time (Source) Location / / Volume Laterality Blood specimen 07/08/2017 4:00 AM 017 4:09 (specimen) EST AM EST Resulting Agency Comment Spec In Lab Yuan Webber MD CHEMISTRY ORDERABLES Performing Organization Address City/[facility]/ZIP [place] [address] (ABNORMAL) POCT Glucose (07/08/2017 3:00 AM EST) P athologist Signature POC Glucose 273 (H) 65 - 199 [facility] mg/dL [facility] Comment: [...] Address City/State/[place] [address] (ABNORMAL) POCT Glucose (07/08/2017 1:57 AM EST) athologist Signature POC Glucose 288 (H) 65 - 199 [facility] mg/dL [facility] Comment: [...] Address City/State/[place] [address] (ABNORMAL) POCT Glucose (07/08/2017 1:01 AM EST) athologist Signature POC Glucose 315 (H) 65 - 199 [facility] mg/dL [facility] Comment: [...] Address City/State/[place] [address] (ABNORMAL) BLOOD GAS 2 ARTERIAL (07/08/2017 12:09 AM EST) athologist Signature pH Art 7.26 7.35 - [facility] (Critical) 7.45 [facility] Comment: Noted by instrument technician. pCO2 Art 41 35 - [...] [facility] COHB Art 0.2 % [facility] [...] WB 7.6 (Critical) 0.5 - 2.2 mmol/L [facility] Comment: Noted by instrument technician. FIO2 Art 40 % [facility] [...] Organization Address City/State/ZIP [place] [address] (ABNORMAL) POCT Glucose (07/07/2017 10:56 PM EST) athologist Signature POC Glucose 292 (H) 65 - 199 [facility] mg/dL [facility] LABORATORY [...] Organization Address City/State/ZIP [place] [address] (ABNORMAL) BLOOD GAS 2 ARTERIAL (07/07/2017 10:04 PM EST) athologist Signature pH Art 7.22 7.35 - [facility] (Critical) 7.45 [facility] Comment: Noted by instrument technician. pCO2 Art 42 35 - [...] [facility] COHB Art 0.7 % [facility] [...] WB 8.2 (Critical) 0.5 - 2.2 mmol/L [facility] Comment: Noted by instrument technician. FIO2 Art 40 % [facility] PF Ratio Art 235 [facility] Specimen Anatomical Collection Method Collection Time Receive d Time (Source) Location / / Volume Laterality Blood specimen 07/07/2017 10:04 7 (specimen) PM EST 10:04 PM EST Daphne Shahid MD CHEMISTRY ORDERABLES Performing Organization Address City/State/ZIP Code Phon e Number [address] (ABNORMAL) Hemoglobin (07/07/2017 10:00 PM EST) P athologist Signature Hemoglobin 12.8 (L) 13.7 - [facility] 16.5 gm/dL [facility] Specimen Anatomical Collection Method Collection Time Receive d Time (Source) Location / / Volume Laterality Blood specimen 07/07/2017 10:00 7 (specimen) PM EST 10:13 PM EST Resulting Agency Comment Spec In Lab Yuan Webber MD HEMATOLOGY ORDERABLES Performing Organization Address City/State/ZIP Code Phon e Number [address] (ABNORMAL) Potassium (07/07/2017 10:00 PM EST) P athologist Signature Potassium 3.4 (L) 3.5 - 5.0 [facility] mmol/L [facility] LABORATORY Comment: [...] Webber MD CHEMISTRY ORDERABLES Performing Organization Address City/[facility]/[place] [address] (ABNORMAL) POCT Glucose (07/07/2017 8:49 PM EST) athologist Signature POC Glucose 241 (H) 65 - 199 [facility] mg/dL [facility] LABORATORY [...] City/[facility]/[place] [address] Prepare Albumin 5% in 250 mL (07/07/2017 8:03 PM EST) athologist Signature Dispensed? Yes [facility] LABORATORY Specimen Anatomical Collection Method Collection Time Receive d Time (Source) Location / / Volume Laterality Blood specimen No Charge / 07/07/2017 8:03 PM 017 8:04 (specimen) Unknown EST PM EST Resulting Agency Comment Spec In Lab Michael BROWN BLOOD BANK ORDERABLES Performing Organization Address City/[facility]/[place] [address] EKG 12 Lead (07/07/2017 7:17 PM EST) Component Value Ref Range Test Analysis Performed Pathologis t Method Time At Signature Ventricular rate 75 BPM MUSE SYSTEM Atrial Rate 75 BPM MUSE SYSTEM P-R Interval 168 ms MUSE SYSTEM QRS Duration 104 ms MUSE SYSTEM Q-T Interval 462 ms MUSE SYSTEM QTC Calculated 515 ms MUSE SYSTEM (Bezet) Calculated P [place] 52 degrees MUSE SYSTEM Calculated R [place] -40 degrees MUSE SYSTEM Calculated T [place] 39 degrees MUSE SYSTEM INTERPRETATION Normal sinus [...] 7.35 - [facility] (Critical) 7.45 [facility] LABORATORY Comment: Noted by instrument technician. pCO2 Art 50 (H) 35 [facility] COHB Art 0.5 % [facility] Comment: Noted by instrument technician. Please note: Patients with WBC [...] WB 4.9 (Critical) 0.5 - 2.2 mmol/L [facility] LABORATORY Comment: Noted by instrument technician. FIO2 Art 100 % [facility] PF Ratio Art 238 [facility] LAB[facility]ORY Specimen Anatomical Collection Method Collection Time Receive d Time (Source) Location / / Volume Laterality Blood specimen 07/07/2017 6:57 PM 017 6:57 (specimen) EST PM EST Daphne Shahid MD CHEMISTRY ORDERABLES Performing Organization Address City/State/ZIP [place] [address] (ABNORMAL) BLOOD GAS 2 ARTERIAL (07/07/2017 5:31 PM EST) P athologist Signature pH Art 7.29 7.35 - [facility] (Critical) 7.45 [facility] LABOR[facility]ORY Comment: Noted by instrument technician. pCO2 Art 48 (H) 35 [facility] COHB Art 0.3 % [facility] [...] Organization Address City/State/ZIP [place] [address] Fibrinogen (07/07/2017 5:30 PM EST) P athologist Signature Fibrinogen 224 180 - 510 [facility] mg/dL [facility] LABORATORY Comment: Called by: JEET, [...] Perez MD HEMATOLOGY ORDERABLES Performing Organization Address [facility] Phon e Number [address] APTT (07/07/2017 5:30 PM EST) P athologist Signature PTT 30 25 - 35 sec [facility]OR[facility]ORY Comment: The recommended therapeutic range for fu ll dose, unfractionated heparin at [facility] is 80 ? 114 seconds. The use [...] Address [facility] [place] [address] (ABNORMAL) Prothrombin Time (07/07/2017 [...] Perez MD HEMATOLOGY ORDERABLES Performing Organization Address [facility]/ZIP [place] [address] (ABNORMAL) Hemogram (07/07/2017 5:30 PM EST) athologist Signature WBC 19.6 (H) 4.0 - 9.5 [facility] x10(3)/[facility] LABORATORY RBC 3.08 (L) 4.58 - [facility] 5.54 [facility] x10(6)/[facility] LABORATORY Hemoglobin 9.2 (L) 13.7 - [facility] 16.5 gm/dL [facility] [place] Hematocrit 28.0 (L) 40.5 - [facility] 48.5 % [facility] LABORATORY Comment: This result has been called to MONICA WEINSTEIN LUISA by DONALD GROSSMAN on 07 07 2017 at 1759, and has been read back. MCV 90.9 82.9 - 93.1 [facility] LABORATORY MCH 29.9 27.5 - 32.1 pg [facility] LABORATORY MCHC 32.9 32.0 - 35.7 gm/dL [facility] LABORATORY Platelets 155 145 - 357 x10(3)/[facility] LABORATORY RDWSD 46.5 (H) 36.0 - 45.0 [facility] LABORATORY RDWCV 14.1 (H) 11.4 - 13.8 % [facility] LABORATORY MPV 9.5 7.6 - 12.9 [facility] LABORATORY nRBC % Auto 0.0 % [facility] LABORATORY nRBC Abs Auto 0.000 0.000 - 0.000 x10(3)/[facility] LABORATORY Specimen Anatomical Collection Method Collection Time Receive d Time (Source) Location / / Volume Laterality Blood specimen 07/07/2017 5:30 PM 017 5:34 (specimen) EST PM EST Resulting Agency Comment Spec In Lab Yifan Perez MD HEMATOLOGY ORDERABLES Performing Organization Address City/State/ZIP [place] [address] Prepare Platelets, Apheresis (07/07/2017 5:00 PM EST) P athologist Signature Dispensed? Yes [facility] LABOR[facility]ORY Specimen Anatomical Collection Method Collection Time Receive d Time (Source) Location / / Volume Laterality Blood specimen 07/07/2017 5:00 PM 017 4:58 (specimen) EST PM EST Daphne Shahid MD BLOOD BANK ORDERABLES Performing Organization Address City/State/ZIP [place] [address] Platelet count (07/07/2017 4:55 PM EST) athologist Signature Platelets 177 145 - 357 [facility] x10(3)/[facility] LABORATORY Plat Immature 1.5 0.0 - 7.4 [facility] % % [facility] LABORATORY Comment: Limitation of the Immature Platelet Frac tion (IPF)-May be less reliable when the platelet count is less than 92m481/u L due to statistical imprecision. The IPF [...] in a decreased state of production. References: [employer] The Clinical Value of the Immature Platelet Fraction (IPF) in Cell Recovery Document Number [id number] 12/2010 [employer] The Role of the Imm ature Platelet Fraction (IPF) in the Differential Diagnosis of Thrombocytopen ia, Document [id number] V012/04/13 P012/06 Specimen Anatomical Collection Method Collection Time Receive d Time (Source) Location / / Volume Laterality Blood specimen 07/07/2017 4:55 PM 017 5:13 (specimen) EST PM EST Resulting Agency Comment Spec In Lab Daphne Shahid MD HEMATOLOGY ORDERABLES Performing Organization Address City/[facility]/ZIP [place] [address] (ABNORMAL) Hemoglobin and Hematocrit, blood (07/07/2017 4:55 PM EST) P athologist Signature Hemoglobin 9.1 (L) 13.7 - 16.5 [facility]ORY Comment: This result has [...] Shahid MD HEMATOLOGY ORDERABLES Performing Organization Address City/[facility]/[place] [address] (ABNORMAL) BLOOD GAS 2 ARTERIAL (07/07/2017 4:38 PM EST) Analysis Performed At Patho logist Time Signature pH Art 7.37 7.35 - [facility] 7.45 [facility] LABORATORY pCO2 Art 44 35 - 45 [facility] mmHg [facility] LABORATORY pO2 Art 322 (H) 85 - 104 [facility] mmHg [facility] LABORATORY HCO3 Art 24.9 20.0 - [facility] 26.0 [facility] mmol/L [facility] LABORATORY BE Art -0.4 -3.0 - 3.0 [facility] mmol/L [facility] LABORATORY Hgb Blood Gas 10.1 (L) 13.7 - [facility] 16.5 gm/dL [facility] LABORATORY O2HB Art 98.7 (H) 94.0 - [facility] 97.0 % [facility] LABORATORY COHB Art 0.1 % [facility] Comment: Noted by instrument technician. Note: ??Total bilirubin higher than [...] Organization Address City/State/[place] [address] (ABNORMAL) BLOOD GAS 2 VENOUS (07/07/2017 4:06 PM EST) Analysis Performed At Patho logist Time Signature pH [place] 7.31 (L) 7.32 - [facility] 7.42 [facility] LABORATORY pCO2 [place] 47 41 - 51 [facility] LABORATORY pO2 [place] 53 (H) 25 - 40 [facility] LABORATORY HCO3 [place] 22.7 mmol/L [facility] LABORATORY BE [place] -3.7 mmol/L [facility] LABOR[facility]ORY Hgb Blood Gas 10.2 (L) 13.7 - [facility] 16.5 gm/dL [facility] LABORATORY O2HB [place] 81.0 % [facility] Comment: Noted by instrument technician. Note: ??Total bilirubin higher than [...] [facility] LABORATORY BGas Source Venous [facility] LABOR[facility]ORY Specimen Anatomical Collection Method Collection Time Receive d Time (Source) Location / / Volume Laterality Blood specimen 07/07/2017 4:06 PM 017 4:06 (specimen) EST PM EST Daphne Shahid MD CHEMISTRY ORDERABLES Performing Organization Address City/State/Z[place] [address] (ABNORMAL) BLOOD GAS 2 ARTERIAL (07/07/2017 4:05 PM EST) Analysis Performed At Patho logist Time Signature pH Art 7.36 7.35 - [facility] 7.45 [facility] LABORATORY pCO2 Art 40 35 - 45 [facility] LABORATORY pO2 Art 282 (H) 85 - 104 [facility] LABORATORY HCO3 Art 22.1 20.0 - [facility] 26.0 [facility] mmol/L [facility] LABORATORY BE Art -3.4 (L) -3.0 - 3.0 [facility] mmol/L [facility] LABORATORY Hgb Blood Gas 10.2 (L) 13.7 - [facility] 16.5 gm/dL [facility] LABORATORY O2HB Art 98.4 (H) 94.0 - [facility] 97.0 % [facility] LABORATORY COHB Art 0.3 % [facility] Comment: Noted by instrument technician. Note: ??Total bilirubin higher than [...] Organization Address City/State/Z[place] [address] (ABNORMAL) BLOOD GAS 2 ARTERIAL (07/07/2017 2:29 PM EST) Analysis Performed At Patho logist Time Signature pH Art 7.43 7.35 - [facility] 7.45 [facility] LABORATORY pCO2 Art 36 35 - 45 [facility] LABORATORY pO2 Art 221 (H) 85 - 104 [facility] LABORATORY HCO3 Art 23.2 20.0 - [facility] 26.0 [facility] mmol/L [facility] LABORATORY BE Art -1.2 -3.0 - 3.0 [facility] mmol/L [facility] LABORATORY Hgb Blood Gas 13.9 13.7 - [facility] 16.5 gm/dL [facility] [place] O2HB Art 97.8 (H) 94.0 - [facility] 97.0 % [facility] LABORATORY COHB Art 1.1 % [facility] [...] Address City/State/[place] [address] Prepare Coag Factors (Non-Hemophilia) (07/07/2017 1:25 PM EST) P athologist Signature Dispensed? Yes [facility] LABORATORY Specimen Anatomical Collection Method Collection Time Receive d Time (Source) Location / / Volume Laterality Blood specimen 07/07/2017 1:25 PM 017 1:21 (specimen) EST PM EST Daphne Shahid MD BLOOD BANK ORDERABLES Performing Organization Address City/State/ZIP Code Phon e Number [address] Prepare RBC (07/07/2017 1:10 PM EST) athologist Signature Dispensed? Yes [facility] LABORATORY Specimen Anatomical Collection Method Collection Time Receive d Time (Source) Location / / Volume Laterality Blood specimen 07/07/2017 1:10 PM 017 1:05 (specimen) EST PM EST Daphne Shahid MD BLOOD BANK ORDERABLES Performing Organization Address City/State/[place] [address] POCT Glucose (07/07/2017 11:56 AM EST) athologist Signature POC Glucose 188 65 - 199 [facility] mg/dL [facility] LABORATORY Comment: [...] Address City/State/[place] [address] POCT Glucose (07/07/2017 11:05 AM EST) athologist Signature POC Glucose 168 65 - 199 [facility]/dL [facility] LAB[facility]ATORY Comment: [...] Address City/State/[place] [address] POCT Glucose (07/07/2017 10:02 AM EST) P athologist Signature POC Glucose 191 65 - 199 [facility] mg/dL [facility] LABORATORY Comment: [...] Address City/State/[place] [address] POCT Glucose (07/07/2017 7:53 AM EST) athologist Signature POC Glucose 178 65 - 199 [facility] mg/dL [facility] LABORATORY Comment: [...] Address City/State/ZIP Code Phon e Number [address] POCT Glucose (07/07/2017 7:03 AM EST) athologist Signature POC Glucose 188 65 - 199 [facility] mg/dL [facility] LABORATORY Comment: [...] Address City/State/[place] [address] (ABNORMAL) POCT Glucose (07/07/2017 6:17 AM EST) athologist Signature POC Glucose 207 (H) 65 - 199 [facility] mg/dL [facility]ORY Comment: [...] City/[facility]/ZIP Code Phon e Number [address] Differential, Automated (07/07/2017 5:15 AM EST) athologist Signature Neutrophils % 69.7 % [facility] LABORATORY Neutr Abs (ANC) 5.32 1.70 - [facility] 6.10 [facility] x10(3)/[facility] LABORATORY Lymphocytes % 16.3 % [facility] LABORATORY Lymphocytes Abs 1.2 0.9 - 3.2 [facility] x10(3)/[facility] LABORATORY Monocytes % 10.5 % [facility] LABORATORY Monocyte Abs 0.8 0.3 - 0.9 [facility] x10(3)/[facility] LABORATORY Eosinophils % 2.5 % [facility] LABORATORY Eosinophils Abs 0.2 0.0 - 0.4 [facility] x10(3)/[facility] LABORATORY Basophils % 0.7 % [facility] LABORATORY Basophils Abs 0.0 0.0 - 0.1 [facility] x10(3)/[facility] LABORATORY Immature [...] x10(3)/[facility] LABORATORY Specimen Anatomical Collection Method Collection Time Receive d Time (Source) Location / / Volume Laterality Blood specimen 07/07/2017 5:15 AM 017 5:34 (specimen) EST AM EST Resulting Agency Comment Spec In Lab Daphne Shahid MD HEMATOLOGY ORDERABLES Performing Organization Address City/State/[place] [address] (ABNORMAL) Hemogram (07/07/2017 5:15 AM EST) Analysis Performed At Patho logist Time Signature WBC 7.6 4.0 - 9.5 [facility] x10(3)/[facility] LABORATORY RBC 4.82 4.58 [facility] 5.54 [facility] x10(6)/[facility] Hemoglobin 14.4 13.7 - [facility] 16.5 gm/dL [facility] LAB[facility]ATORY Hematocrit 42.1 40.5 - [facility] 48.5 % [facility]ATORY MCV 87.3 82.9 - [facility] 93.1 [facility] LABORATORY MCH 29.9 27.5 - [place] [facility] 32.1 pg [facility] LABORATORY MCHC 34.2 32.0 - [facility] 35.7 gm/dL [facility] LABORATORY Platelets 188 145 - 357 [facility] x10(3)/[facility] LABORATORY RDWSD 45.1 (H) 36.0 - [facility] 45.0 [facility] LABORATORY RDWCV 14.3 (H) 11.4 - [facility] 13.8 % [facility] LABORATORY MPV 9.4 7.6 - 12.9 [facility] LABORATORY nRBC % Auto 0.0 % [facility] LABORATORY nRBC Abs Auto 0.000 0.000 - [facility] 0.000 [facility] x10(3)/[facility] LABORATORY Specimen Anatomical Collection Method Collection Time Receive d Time (Source) Location / / Volume Laterality Blood specimen 07/07/2017 5:15 AM 017 5:34 (specimen) EST AM EST Resulting Agency Comment Spec In Lab Daphne Shahid MD HEMATOLOGY ORDERABLES Performing Organization Address City/[facility]/[place] [address] (ABNORMAL) APTT (07/07/2017 5:15 AM EST) P athologist Signature PTT 69 (H) 25 - 35 sec [facility] Comment: The recommended therapeutic range for fu ll dose, unfractionated heparin at [facility] is 80 ? 114 seconds. The use [...] Shahid MD HEMATOLOGY ORDERABLES Performing Organization Address City/[facility]/[place] [address] Magnesium (07/07/2017 5:15 AM EST) athologist Signature Magnesium 0.94 0.69 - 1.07 [facility] mmol/L [facility] LABORATORY Specimen Anatomical Collection Method Collection Time Receive d Time (Source) Location / / Volume Laterality Blood specimen 07/07/2017 5:15 AM 017 5:34 (specimen) EST AM EST Resulting Agency Comment Spec In Lab Daphne Shahid MD CHEMISTRY ORDERABLES Performing Organization Address City/[facility]/[place] [address] (ABNORMAL) Basic Metabolic Panel (non-fasting) (07/07/2017 5:15 AM EST) athologist Signature Glucose Lvl 203 (H) 65 - 199 [facility] mg/dL [facility] LABORATORY [...] [facility] LABORATORY Estimated GFR >60 >=60 [facility] Comment: The reported eGFR should be multiplied b y 1.2 for patients. The MDRD is not an appropriate measure o f renal function for patients with body mass extremes or in patients with acute kidney failure. http://HIT Community.Zarpo/DHnkdep http://Otonomy/DHMCnkf Specimen Anatomical Collection Method Collection Time Receive d Time (Source) Location / / Volume Laterality Blood specimen 07/07/2017 5:15 AM 017 5:34 (specimen) EST AM EST Resulting Agency Comment Spec In Lab Daphne Shahid MD CHEMISTRY ORDERABLES Performing Organization Address City/State/ZIP [place] [address] (ABNORMAL) Cardiac Enzymes (LEB/CGP) (07/07/2017 5:15 AM EST) athologist Signature Troponin-T 2.07 (H) 0.00 [facility] 0.[facility] ng/mL [facility] Comment: The 99th percentile for Troponin T is le ss than 0.01 ng/mL, any detectable cTnT concentration using this assay should be considered elevated. According to the third universal definit ion of myocardial infarction the following criteria with a clinical prese ntation consistent with acute myocardial ischemia meets the diagnosis for a myocardial infarction ([place]). Detection of a rise and/or fall of [...] additional sample may be indicated. Reference: Third [place] Definition of Myocardial Infarction. Journal of the [employer] [employer] 2012;60:1581-98 CK, Total 88 0 - 200 unit/L [facility] LABOR[facility]ORY Specimen Anatomical Collection Method Collection Time Receive d Time (Source) Location / / Volume Laterality Blood specimen 07/07/2017 5:15 AM 017 5:34 (specimen) EST AM EST Resulting Agency Comment Spec In Lab Daphne Shahid MD CHEMISTRY ORDERABLES Performing Organization Address City/State/ZIP [place] [address] POCT Glucose (07/07/2017 5:01 AM EST) P athologist Signature POC Glucose 182 65 - 199 [facility] mg/dL [facility] LABORATORY [...] Address City/State/ZIP Code Phon e Number [address] POCT Glucose (07/07/2017 4:08 AM EST) P athologist Signature POC Glucose 199 65 - 199 [facility] mg/dL [facility] LABORATORY Comment: [...] City/[facility]/ZIP Code Phon e Number [address] POCT Glucose (07/07/2017 3:03 AM EST) athologist Signature POC Glucose 188 65 - 199 [facility] mg/dL [facility] LAB[facility]ORY Comment: [...] Address City/State/[place] [address] (ABNORMAL) POCT Glucose (07/07/2017 2:08 AM EST) athologist Signature POC Glucose 200 (H) 65 - 199 [facility] mg/dL [facility] Comment: [...] Address City/State/[place] [address] (ABNORMAL) POCT Glucose (07/07/2017 1:31 AM EST) P athologist Signature POC Glucose 209 (H) 65 - 199 [facility] mg/dL [facility] Comment: [...] Address City/State/[place] [address] XR Chest PA or [...] Signature POC Glucose 161 65 - 199 [facility] mg/dL [facility] Comment: [...] City/[facility]/ZIP Code Phon e Number [address] (ABNORMAL) APTT (07/07/2017 12:00 AM EST) athologist [facility] PTT 103 (H) 25 - 35 sec [facility] Comment: The recommended therapeutic range for fu ll dose, unfractionated heparin at [facility] is 80 ? 114 seconds. The use [...] Address City/State/[place] [address] POCT Glucose (07/06/2017 9:55 PM EST) athologist Signature POC Glucose 109 65 - 199 [facility] mg/dL [facility] Comment: [...] Address City/State/ZIP Code Phon e Number [address] POCT Glucose (07/06/2017 9:04 PM EST) athologist Signature POC Glucose 120 65 - 199 [facility] mg/dL [facility] LAB[facility] Comment: [...] Address City/State/[place] [address] POCT Glucose (07/06/2017 7:45 PM EST) athologist Signature POC Glucose 158 65 - 199 [facility] mg/dL [facility] Comment: [...] City/[facility]/[place] [address] Potassium (07/06/2017 7:40 PM EST) athologist Signature Potassium 3.9 3.5 - 5.0 [facility] mmol/L [facility] Comment: [...] Organization Address City/State/ZIP [place] [address] (ABNORMAL) Cardiac Enzymes (LEB/CGP) (07/06/2017 7:40 PM EST) athologist Signature Troponin-T 2.27 (H) 0.00 - [facility] 0.00 ng/mL [facility] Comment: The 99th percentile for Troponin T is le ss than 0.01 ng/mL, any detectable cTnT concentration using this assay should be considered elevated. According to the third universal definit ion of myocardial infarction the following criteria with a clinical prese ntation consistent with acute myocardial ischemia meets the diagnosis for a myocardial infarction ([place]). Detection of a rise and/or fall of [...] additional sample may be indicated. Reference: Third Felton Definition of Myocardial Infarction. Journal of the [place] [employer] 2012;60:1581-98 CK, Total 93 0 - 200 unit/L [facility] Specimen Anatomical Collection Method Collection Time Receive d Time (Source) Location / / Volume Laterality Blood specimen 07/06/2017 7:40 PM 017 7:52 (specimen) EST PM EST Resulting Agency Comment Spec In Lab Daphne Shahid MD CHEMISTRY ORDERABLES Performing Organization Address City/State/[place] [address] (ABNORMAL) POCT Glucose (07/06/2017 7:13 PM EST) P athologist Signature POC Glucose 200 (H) 65 - 199 [facility] mg/dL [facility] LABORATORY [...] Address City/State/ZIP Code Phon e Number [address] (ABNORMAL) APTT (07/06/2017 6:15 PM EST) athologist [facility] PTT 94 (H) 25 - 35 sec [facility] Comment: The recommended therapeutic range for fu ll dose, unfractionated heparin at [facility] is 80 ? 114 seconds. The use [...] Address City/State/[place] [address] (ABNORMAL) POCT Glucose (07/06/2017 6:03 PM EST) athologist Signature POC Glucose 236 (H) 65 - 199 [facility] mg/dL [facility] LABORATORY [...] Address City/State/[place] [address] (ABNORMAL) POCT Glucose (07/06/2017 5:01 PM EST) P athologist Signature POC Glucose 235 (H) 65 - 199 [place] mg/dL [facility] Comment: [...] City/[facility]/[place] [address] (ABNORMAL) POCT Glucose (07/06/2017 4:06 PM EST) athologist Signature POC Glucose 202 (H) 65 - 199 [place] mg/dL [facility] Comment: [...] Address City/State/[place] [address] POCT Glucose (07/06/2017 2:59 PM EST) P athologist Signature POC Glucose 178 65 - 199 [place] RAYN mg/dL [facility] Comment: [...] City/[facility]/[place] [address] (ABNORMAL) Cardiac Enzymes (LEB/CGP) (07/06/2017 2:10 PM EST) P athologist Signature Troponin-T 2.34 (H) 0.00 [facility] ng/mL [facility] Comment: The 99th percentile for Troponin T is le ss than 0.01 ng/mL, any detectable cTnT concentration using this assay should be considered elevated. According to the third universal definit ion of myocardial infarction the following criteria with a clinical prese ntation consistent with acute myocardial ischemia meets the diagnosis for a myocardial infarction ([place]). Detection of a rise and/or fall of [...] additional sample may be indicated. Reference: Third Felton Definition of Myocardial Infarction. Journal of the [place] [employer] 2012;60:1581-98 CK, Total 101 0 - 200 unit/L [facility] Specimen Anatomical Collection Method Collection Time Receive d Time (Source) Location / / Volume Laterality Blood specimen 07/06/2017 2:10 PM 017 2:26 (specimen) EST PM EST Resulting Agency Comment Spec In Lab Daphne Shahid MD CHEMISTRY ORDERABLES Performing Organization Address City/[facility]/[place] [address] POCT Glucose (07/06/2017 2:08 PM EST) P athologist Signature POC Glucose 192 65 - 199 [place] mg/dL [facility] Comment: [...] Address City/State/ZIP Code Phon e Number [address] POCT Glucose (07/06/2017 1:04 PM EST) athologist Signature POC Glucose 162 65 - 199 [facility] Comment: [...] Address City/State/ZIP Code Phon e Number [address] POCT Glucose (07/06/2017 12:05 PM EST) athologist Signature POC Glucose 196 65 - 199 [facility] mg/dL [facility] Comment: [...] Address City/State/ZIP Code Phon e Number [address] EKG 12 Lead (07/06/2017 12:00 PM EST) Component Value Ref Range Test Analysis Performed Pathologis t Method Time At Signature Ventricular rate 91 BPM MUSE SYSTEM Atrial Rate 91 BPM MUSE SYSTEM P-R Interval 140 ms MUSE SYSTEM QRS Duration 94 ms MUSE SYSTEM Q-T Interval 394 ms MUSE SYSTEM QTC Calculated 484 ms MUSE SYSTEM (Bezet) Calculated [place] 36 degrees MUSE SYSTEM Calculated [place] -19 degrees MUSE SYSTEM Calculated [place] 104 degrees MUSE SYSTEM INTERPRETATION Normal sinus rhythm MUSE SYSTEM 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) ST & T wave abnormality, consider lateral ischemia Abnormal ECG When compared with ECG of 05-JUL-2017 20:39, No significant change was found Confirmed by MD Luci, Taurus Braun ([id number]) on 07/06/2017 5:07:33 PM Specimen Anatomical Collection Method Collection Time Receive d Time (Source) Location / / Volume Laterality 07/06/2017 12:00 07/06/2017 5:07 PM EST PM EST Daphne Shahid MD ECG ORDERABLES Performing Organization Address City/[facility]/ZIP Code Phon e Number MUSE [...] BLOOD BANK ORDERABLES Performing Organization Address City/[facility]/[place] [address] Antibody screen (07/06/2017 12:00 PM EST) [facility] TCHO Method Time Signature Ab Screen Negative [facility] LABORATORY Expires at 07/09/2017 [facility] [id number] on: [facility] Specimen Anatomical Collection Method Collection Time Receive d Time (Source) Location / / Volume Laterality Blood specimen 07/06/2017 12:00 7 (specimen) PM EST 12:24 PM EST Resulting Agency Comment Spec In Lab Daphne Shahid MD BLOOD BANK ORDERABLES Performing Organization Address City/[facility]/ZIP Code Phon e Number [address] ABO/Rh Typing (07/06/2017 12:00 [...] Address City/State/[place] [address] Prothrombin Time (07/06/2017 11:24 [...] Shahid MD HEMATOLOGY ORDERABLES Performing Organization Address City/[facility]/ZIP Code Phon e Number [place] [id number] (ABNORMAL) APTT (07/06/2017 11:24 AM EST) P athologist Signature PTT 52 (H) 25 - 35 sec [facility] Comment: The recommended therapeutic range for fu ll dose, unfractionated heparin at [facility] is 80 ? 114 seconds. The use [...] Address City/State/ZIP Code Phon e Number [address] POCT Glucose (07/06/2017 11:02 AM EST) athologist Signature POC Glucose 187 65 - 199 [place] mg/dL [facility] Comment: [...] Address City/State/[place] [address] POCT Glucose (07/06/2017 10:18 AM EST) athologist Signature POC Glucose 193 65 - 199 [place] mg/dL [facility] Comment: [...] Address City/State/[place] [address] POCT Glucose (07/06/2017 9:25 AM EST) athologist Signature POC Glucose 182 65 - 199 [place] mg/dL [facility] Comment: [...] City/[facility]/ZIP [place] [address] (ABNORMAL) Cardiac Enzymes (LEB/CGP) (07/06/2017 8:10 AM EST) athologist Signature Troponin-T 2.26 (H) 0.00 - [place] RY[place] 0.00 ng/mL [facility] Comment: The 99th percentile for Troponin T is le ss than 0.01 ng/mL, any detectable cTnT concentration using this assay should be considered elevated. According to the third universal definit ion of myocardial infarction the following criteria with a clinical prese ntation consistent with acute myocardial ischemia meets the diagnosis for a myocardial infarction ([place]). Detection of a rise and/or fall of [...] additional sample may be indicated. Reference: Third Felton Definition of Myocardial Infarction. Journal of the [place] [employer] 2012;60:1581-98 CK, Total 124 0 - 200 unit/L [facility] Specimen Anatomical Collection Method Collection Time Receive d Time (Source) Location / / Volume Laterality Blood specimen 07/06/2017 8:10 AM 017 8:23 (specimen) EST AM EST Resulting Agency Comment Spec In Lab Daphne Shahid MD CHEMISTRY ORDERABLES Performing Organization Address City/State/ZIP Code Phon e Number [place] Magnesium (07/06/2017 8:10 AM EST) athologist Signature Magnesium 0.84 0.69 - 1.07 [facility] mmol/L [facility] Specimen Anatomical Collection Method Collection Time Receive d Time (Source) Location / / Volume Laterality Blood specimen 07/06/2017 8:10 AM 017 8:21 (specimen) EST AM EST Resulting Agency Comment Spec In Lab Daphne Shahid MD CHEMISTRY ORDERABLES Performing Organization Address City/State/ZIP Code Phon e Number [address] (ABNORMAL) Basic Metabolic Panel (non-fasting) (07/06/2017 8:10 AM EST) athologist Signature Glucose Lvl 199 65 - 199 [facility] mg/dL [facility] LABORATORY [...] [facility] Estimated GFR >60 >=60 [facility] Comment: The reported eGFR should be multiplied b y 1.2 for patients. The MDRD is not an appropriate measure o f renal function for patients with body mass extremes or in patients with acute kidney failure. http://HIT Community.Zarpo/DHnkdep http://HIT Community.Zarpo/DHMCnkf Specimen Anatomical Collection Method Collection Time Receive d Time (Source) Location / / Volume Laterality Blood specimen 07/06/2017 8:10 AM 017 8:21 (specimen) EST AM EST Resulting Agency Comment Spec In Lab Daphne Shahid MD CHEMISTRY ORDERABLES Performing Organization Address City/[facility]/ZIP Code Phon e Number [address] POCT Glucose (07/06/2017 7:34 AM EST) athologist Signature POC Glucose 198 65 - 199 [facility] Comment: [...] City/[facility]/ZIP Code Phon e Number [address] POCT Glucose (07/06/2017 7:03 AM EST) athologist Signature POC Glucose 181 65 - 199 [facility] mg/dL [facility] Comment: [...] City/[facility]/ZIP Code Phon e Number [address] XR Chest PA or [...] 65 - 199 [facility] mg/dL [facility] LABORATORY [...] Address City/State/ZIP Code Phon e Number [address] POCT Glucose (07/06/2017 5:08 AM EST) athologist Signature POC Glucose 154 65 - 199 [place] mg/dL [facility] Comment: [...] Address City/State/ZIP Code Phon e Number [address] POCT Glucose (07/06/2017 4:05 AM EST) athologist Signature POC Glucose 142 65 - 199 [place] mg/dL [facility] Comment: [...] Address City/State/[place] [address] POCT Glucose (07/06/2017 3:00 AM EST) athologist Signature POC Glucose 116 65 - 199 [facility] RYAN mg/dL [facility] Comment: [...] City/[facility]/ZIP [place] [address] [facility] [address] Potassium (07/06/2017 2:20 AM EST) athologist Signature Potassium 3.9 3.5 - 5.0 [facility] mmol/L [facility] Comment: [...] Shahid MD CHEMISTRY ORDERABLES Performing Organization Address City/[facility]/ZIP Code Phon e Number [address] Differential, Automated (07/06/2017 2:20 AM EST) athologist Signature Neutrophils % 72.9 % [facility] Neutr Abs (ANC) 5.53 1.70 - [facility] 6.10 [facility] x10(3)/[facility] LABORATORY Lymphocytes % 16.4 % [facility] Lymphocytes Abs 1.2 0.9 - 3.2 [facility] x10(3)/[facility] LABORATORY Monocytes % 9.4 % [facility] Monocyte Abs 0.7 0.3 - 0.9 [facility] x10(3)/[facility] LABORATORY Eosinophils % 0.5 % [facility] Eosinophils Abs 0.0 0.0 - 0.4 [facility] x10(3)/[facility] LABORATORY Basophils % 0.4 % [facility] Basophils Abs 0.0 0.0 - 0.1 [facility] x10(3)/[facility] LABORATORY Immature [...] x10(3)/[facility] MAR Y [facility]ORY Specimen Anatomical Collection Method Collection Time Receive d Time (Source) Location / / Volume Laterality Blood specimen 07/06/2017 2:20 AM 017 2:33 (specimen) EST AM EST Resulting Agency Comment Spec In Lab Daphne Shahid MD HEMATOLOGY ORDERABLES Performing Organization Address City/State/ZIP [place] [address] (ABNORMAL) Hemogram (07/06/2017 2:20 AM EST) Analysis Performed At Patho logist Time Signature WBC 7.6 4.0 - 9.5 [facility] x10(3)/[facility] LABORATORY RBC 4.52 (L) 4.58 - [facility] 5.54 [facility] x10(6)/[facility] LABORATORY Hemoglobin 13.4 (L) 13.7 - [facility]/dL [facility] Hematocrit 39.7 (L) 40.5 - [facility] 48.5 % [facility] MCV 87.8 82.9 - [facility] 93.1 [facility] LABORATORY MCH 29.6 27.5 - [facility] RYAN 32.1 pg [facility]ATORY MCHC 33.8 32.0 - [facility] 35.7 gm/dL [facility] Platelets 189 145 - 357 [facility] x10(3)/[facility] LABORATORY RDWSD 45.6 (H) 36.0 - [facility] 45.0 [facility] LABORATORY RDWCV 14.3 (H) 11.4 - [facility] RYAN 13.8 % [facility] LABORATORY MPV 9.1 7.6 - 12.9 [facility] LABORATORY nRBC % Auto 0.0 % [facility] nRBC Abs Auto 0.000 0.000 - [place] DAV[place] 0.000 [facility] x10(3)/[facility] LABORATORY Specimen Anatomical Collection Method Collection Time Receive d Time (Source) Location / / Volume Laterality Blood specimen 07/06/2017 2:20 AM 017 2:33 (specimen) EST AM EST Resulting Agency Comment Spec In Lab Daphne Shahid MD HEMATOLOGY ORDERABLES Performing Organization Address City/State/ZIP Code Phon e Number [address] (ABNORMAL) APTT (07/06/2017 2:20 AM EST) P athologist Signature PTT 52 (H) 25 - 35 sec [facility] Comment: The recommended therapeutic range for fu ll dose, unfractionated heparin at [facility] is 80 ? 114 seconds. The use [...] Shahid MD HEMATOLOGY ORDERABLES Performing Organization Address City/[facility]/ZIP Code Phon e Number [address] POCT Glucose (07/06/2017 2:20 AM EST) P athologist Signature POC Glucose 115 65 - 199 [facility] mg/dL [facility] Comment: Supplemental ranges: <140 mg/dL before meals <180 mg/dL all other times of the day Specimen Anatomical Collection Method Collection Time Receive d Time (Source) Location / / Volume Laterality Blood specimen 07/06/2017 2:20 AM 017 2:20 (specimen) EST AM EST Daphne Shhaid MD POINT OF CARE TEST ORDERABLE S Performing Organization Address City/State/[place] [address] (ABNORMAL) Cardiac Enzymes (LEB/CGP) (07/06/2017 2:20 AM EST) P athologist Signature Troponin-T 2.13 (H) 0.00 - [place] 0.00 ng/mL [facility] Comment: The 99th percentile for Troponin T is le ss than 0.01 ng/mL, any detectable cTnT concentration using this assay should be considered elevated. According to the third universal definit ion of myocardial infarction the following criteria with a clinical prese ntation consistent with acute myocardial ischemia meets the diagnosis for a myocardial infarction ([place]). Detection of a rise and/or fall of [...] additional sample may be indicated. Reference: Third Felton Definition of Myocardial Infarction. Journal of the [place] [employer] 2012;60:1581-98 CK, Total 129 0 - 200 unit/L [facility] Specimen Anatomical Collection Method Collection Time Receive d Time (Source) Location / / Volume Laterality Blood specimen 07/06/2017 2:20 AM 017 2:33 (specimen) EST AM EST Resulting Agency Comment Spec In Lab Daphne Shahid MD CHEMISTRY ORDERABLES Performing Organization Address City/State/ZIP [place] [address] (ABNORMAL) Hemoglobin A1c (07/06/2017 2:20 AM EST) Analysis Performed At Patho logist Time Signature Hemoglobin A1C 6.8 (H) 4.3 - 5.6 [facility] % [facility] Comment: Reference Range: 4.3 - [...] S67-45 Est Avg Gluc See note mg/dL [facility] [...] with hemoglobinopathies. Additional resources are available on [facility] ADA website. Macario HAMMOND, Ruthann J, Deysi R, et al. ??Tr anslating the A1C assay into estimated average glucose values. ??Diabetes Care 2008:31(8):3805-7253. Specimen Anatomical Collection Method Collection Time Receive d Time (Source) Location / / Volume Laterality Blood specimen 07/06/2017 2:20 AM 017 2:34 (specimen) EST AM EST Resulting Agency Comment Spec In Lab Daphne Shahid MD CHEMISTRY ORDERABLES Performing Organization Address City/State/ZIP [place] [address] (ABNORMAL) Lipid Panel (07/06/2017 2:20 AM EST) Patholo gist Method Time Signature Chol, Total 150 <=239 [place] mg/dL [facility] LABOR[facility]ORY Triglycerides 129 <=199 [facility] mg/dL [facility]ORY HDL 32 (L) >=40 [place] mg/dL [facility]OR[facility] LDL Cholesterol 92 <=190 [facility] mg/dL [facility]ORY Chol/HDL Ratio 4.7 ratio [facility] Lipid See Note [place] Interpretation [facility] Comment: Lipid management should be guided by a p atient? s ASCVD risk, goals and preferences. ACC/AHA Guidelines recommend high intens ity statin if clinical ASCVD or LDL greater than or equal to 190 mg/dL. http://HIT Community.Zarpo/NFG-IMH-Kjcbrpicu Adults aged 40-75 with LDL 70-189 mg/dL should have their 10 year ASCVD risk estimated with the ACC/AHA ASCVD risk es timator http://tools.acc.org/VTWTE-Brfc-Xvozqjde r/ Statin should be discussed if risk [...] Address City/State/[place] [address] POCT Glucose (07/06/2017 1:09 AM EST) P athologist Signature POC Glucose 121 65 - 199 [facility] mg/dL [facility] LABORATORY [...] Address City/State/[place] [address] POCT Glucose (07/06/2017 12:06 AM EST) P athologist Signature POC Glucose 147 65 - 199 [place] mg/dL [facility] Comment: [...] Address City/State/[place] [address] (ABNORMAL) POCT Glucose (07/05/2017 10:56 PM EST) P athologist Signature POC Glucose 200 (H) 65 - 199 [place] mg/dL [facility] Comment: [...] Address City/State/[place] [address] (ABNORMAL) POCT Glucose (07/05/2017 10:05 PM EST) P athologist Signature POC Glucose 225 (H) 65 - 199 [place] RY[place] mg/dL [facility] Comment: [...] Address City/State/[place] [address] (ABNORMAL) POCT Glucose (07/05/2017 9:02 PM EST) P athologist Signature POC Glucose 301 (H) 65 - 199 [facility] mg/dL [facility] LABORATORY [...] Address City/State/[place] [address] XR Chest PA or [...] 474 ms MUSE SYSTEM (Bezet) Calculated P [place] 50 degrees MUSE SYSTEM Calculated R [place] -28 degrees MUSE SYSTEM Calculated [place] 90 degrees MUSE SYSTEM INTERPRETATION Sinus tachycardia [...] (H) 1.70 - [facility] 6.10 [facility] x10(3)/[facility] L LABORATORY Lymphocytes % 7.0 % [facility] Lymphocytes Abs 0.7 (L) 0.9 - 3.2 [facility] x10(3)/[facility] LABORATORY Monocytes % 3.7 % [facility] Monocyte Abs 0.4 0.3 - 0.9 [facility] x10(3)/[facility] LABORATORY Eosinophils % 0.1 % [facility] Eosinophils Abs 0.0 0.0 - 0.4 [facility] x10(3)/[facility] LABORATORY Basophils % 0.2 % [facility] Basophils Abs 0.0 0.0 - 0.1 [facility] x10(3)/[facility] LABORATORY Immature Gran % 0.60 % [facility] [...] Organization Address City/State/ZIP [place] [address] (ABNORMAL) Hemogram (07/05/2017 8:20 PM EST) Analysis Performed At Patho logist Time Signature WBC 10.3 (H) 4.0 - 9.5 [facility] x10(3)/[facility] LABORATORY RBC 4.64 4.58 - [facility] 5.54 [facility] x10(6)/[facility] LABORATORY Hemoglobin 14.1 13.7 - [facility] 16.5 gm/dL [facility] LABORATORY Hematocrit 40.8 40.5 - [facility] 48.5 % [facility] LABORATORY MCV 87.9 82.9 - [facility] 93.1 [facility] LABORATORY MCH 30.4 27.5 - [place] [facility] 32.1 pg [facility] LABORATORY MCHC 34.6 32.0 - [place] OLIVASCK 35.7 gm/dL [facility]ORATORY Platelets 204 145 - 357 [facility] x10(3)/[facility] LABORATORY RDWSD 46.1 (H) 36.0 - [facility] 45.0 [facility] LABORATORY RDWCV 14.5 (H) 11.4 - [facility] RYAN 13.8 % [facility] LABORATORY MPV 9.7 7.6 - 12.9 [facility] LABORATORY nRBC % Auto 0.0 % [facility] LABORATORY nRBC Abs Auto 0.000 0.000 - [place] ZHAORYAN 0.000 [facility] x10(3)/[facility] LABORATORY Specimen Anatomical Collection Method Collection Time Receive d Time (Source) Location / / Volume Laterality Blood specimen 07/05/2017 8:20 PM 017 8:27 (specimen) EST PM EST Resulting Agency Comment Spec In Lab Daphne Shahid MD HEMATOLOGY ORDERABLES Performing Organization Address City/State/[place] [address] APTT (07/05/2017 8:20 PM EST) P athologist Signature PTT 32 25 - 35 sec [facility] Comment: The recommended therapeutic range for fu ll dose, unfractionated heparin at [facility] [place] is 80 ? 114 seconds. The use [...] Address City/State/[place] [address] (ABNORMAL) Cardiac Enzymes (LEB/CGP) (07/05/2017 8:20 PM EST) athologist Signature Troponin-T 2.11 (H) 0.00 - BARBARA OLIVASCK 0.00 ng/mL [facility] Comment: The 99th percentile for Troponin T is le ss than 0.01 ng/mL, any detectable cTnT concentration using this assay should be considered elevated. According to the third universal definit ion of myocardial infarction the following criteria with a clinical prese ntation consistent with acute myocardial ischemia meets the diagnosis for a myocardial infarction (TX). Detection of a rise and/or fall of [...] additional sample may be indicated. Reference: Third Felton Definition of Myocardial Infarction. Journal of the [place] College of [employer]iology 2012;60:1581-98 CK, Total 149 0 - 200 unit/L [facility] Specimen Anatomical Collection Method Collection Time Receive d Time (Source) Location / / Volume Laterality Blood specimen 07/05/2017 8:20 PM 017 8:27 (specimen) EST PM EST Resulting Agency Comment Spec In Lab Daphne Shahid MD CHEMISTRY ORDERABLES Performing Organization Address City/State/[place] [address] (ABNORMAL) Magnesium (07/05/2017 8:20 PM EST) P athologist Signature Magnesium 0.68 (L) 0.69 - 1.07 [facility] mmol/L [facility] Specimen Anatomical Collection Method Collection Time Receive d Time (Source) Location / / Volume Laterality Blood specimen 07/05/2017 8:20 PM 017 8:27 (specimen) EST PM EST Resulting Agency Comment Spec In Lab Daphne Shahid MD CHEMISTRY ORDERABLES Performing Organization Address City/State/Z[place] [address] (ABNORMAL) Basic Metabolic Panel (non-fasting) (07/05/2017 8:20 PM EST) P athologist Signature Glucose Lvl 321 (H) 65 - 199 [facility] mg/dL [facility] LABOR[facility]ORY [...] [facility] Estimated GFR >60 >=60 [facility] Comment: The reported eGFR should be multiplied b y 1.2 for patients. The MDRD is not an appropriate measure o f renal function for patients with body mass extremes or in patients with acute kidney failure. http://HIT Community.Zarpo/DHnkdep http://Otonomy/DHMCnkf Specimen Anatomical Collection Method Collection Time Receive d Time (Source) Location / / Volume Laterality Blood specimen 07/05/2017 8:20 PM 017 8:27 (specimen) EST PM EST Resulting Agency Comment Spec In Lab Daphne Shahid MD CHEMISTRY ORDERABLES Performing Organization Address City/State/ZIP Code Phon e [place] [address] (ABNORMAL) POCT Glucose (07/05/2017 7:32 PM EST) P athologist Signature POC Glucose 296 (H) 65 - 199 [facility] mg/dL [facility] LABORATORY [...] Organization Address City/State/[place] [address] CARDIAC CATHETERIZATION (07/05/2017 6:47 PM EST) Anatomical Region Laterality Modality Other Specimen (Source) Anatomical Location Collection Method / Collectio n Time Received Time / Laterality Volume Narrative 07/05/2017 7:27 PM EST ?[facility] ? Cardiac Cathete rization/Intervention Report ? Patient Name: Natalya, Gregory ? Procedure Date: 07/05/2017 ? A #: [id number] ? Primary Physician: Clarisa, Jet T ? Case #: [id number] ? File Name: [id number] ? Catheterization Order Number: [id number] ? [facility] ? Final Report [place], [place] ? Patient Name: ? Gregory Natalya ?ID#: ?[id number] ? : ?1945 ? Procedure Date: ? [...] presented with: non -STEMI (w/i 7 days). [place] ?Cardiovascular Society angina c lass was IV. [...] note might be different from the original. [facility] Cardiac Catheterization/Intervention Re port Patient Name: Gregory Hoang Procedure Date: 07/05/2017 A #: [id number] Primary Physician: Jet Mckenna Case #: [id number] File Name: [id number] Catheterization Order Number: [id number] [facility] Pediatric Clinical Nurse Specialist [facility] Final Report [place], [place] Patient Name: Gregory Hoang ID#: [id number] : 1945 Procedure Date: July 05, [...] of this procedure, the patient was designa lvad as ASA Class III. Patient Status at Catheterization: The patient presented with: non-STEMI ( w/i 7 days). [place] Cardiovascular Society angina class was IV. No [...] Mccollum ? (Age): 1945(72y) Med Rec#: ? [id number] ?Sex: ?M ? [place] ? [facility] [place]Ht / Wt: ??173(cm)/86(kg) Pt. Loc: ?CCU ? BSA: ?2 Study Date: ?? 07/05/2017 ?Pt. Type: Inpatient Tape: ? Referring: Daphne Shahid ([id number]) Referring: MANDA ALCANTAR Reading: Blade Preston ([id number]) Counseling Case Manager: Dayami Paula BA, [facility] Diagnosis: [...] n present. Tricuspid Valve: ? The tricuspid colletet ve appears normal in structure and function. [...] E-wave Vmax ?0.8 ?m/sec ? MV deceleration [id number] ?msec ? MV A-wave Vmax ?0.8 ?m/sec [...] ? Mid-Inferior ?Akinetic ? Mid-Inferoseptal ?Hypokinetic ? [place]-Septal ? Akinetic ? [place]-Anterior ? Hypokinetic ? [place]-Lateral ?Hypokinetic ? [place]-Inferior ? Akinetic ? [place]-Tip ?Akinetic ? This report has been electronically sign ed by: _ Blade Preston MD ? 07/06/2017 08 :53:15 Images reviewed and interpretation verif ied [facility] Cardiac Ultrasound Laboratory Procedure Note Blade Preston MD - 07/06/2017Formatt ing of this note might be different from the original. Procedure: Transthoracic Echocardiogram Patient: NATALYA MCBRIDE(Age): [birth year]72y) Med Rec#: [id number] Sex: M [place] [facility] Ht / Wt: 173(cm)/86(kg) Pt. Loc: CCU BSA: 2 Study Date: 07/05/2017 Pt. Type: Inpatie nt Tape: Referring: Daphne Shahid ([id number]) Referring: MANDA ALCANTAR Reading: Blade Preston ([id number]) Counseling Case Manager: Dayami Paula BA, [facility] Diagnosis: [...] MV E-wave Vmax 0.8 m/sec MV deceleration [id number] msec MV A-wave Vmax 0.8 m/sec MV [...] Hypokinetic Mid-Posterolateral Hypokinetic Mid-Inferior Akinetic Mid-Inferoseptal Hypokinetic [place]-Septal Akinetic [place]-Anterior Hypokinetic [place]-Lateral Hypokinetic [place]-Inferior Akinetic [place]-Tip Akinetic This report has been electronically sign ed by: _ Blade Preston MD 07/06/2017 08:53:15 Images reviewed and interpretation verif ied [facility] Cardiac Ultrasound Laboratory Daphne Shahid MD ECHO ORDERABLES Differential, Automated (07/05/2017 4:55 PM EST) athologist Signature Neutrophils % 77.0 % [facility] Neutr Abs (ANC) 5.26 1.70 - [facility] 6.10 [facility] x10(3)/[facility] LABORATORY Lymphocytes % 13.3 % [facility] Lymphocytes Abs 0.9 0.9 - 3.2 [facility] x10(3)/[facility] LABORATORY Monocytes % 8.2 % [facility] Monocyte Abs 0.6 0.3 - 0.9 [facility] x10(3)/[facility] LABORATORY Eosinophils % 0.7 % [facility] Eosinophils Abs 0.0 0.0 - 0.4 [facility] x10(3)/[facility] LABORATORY Basophils % 0.4 % [facility] Basophils Abs 0.0 0.0 - 0.1 [facility] x10(3)/[facility] LABORATORY Immature [...] x10(3)/[facility] LABORATORY Specimen Anatomical Collection Method Collection Time Receive d Time (Source) Location / / Volume Laterality Blood specimen 07/05/2017 4:55 PM 017 5:24 (specimen) EST PM EST Resulting Agency Comment Spec In Lab Daphne Shahid MD HEMATOLOGY ORDERABLES Performing Organization Address City/State/ZIP [place] [address] (ABNORMAL) Hemogram (07/05/2017 4:55 PM EST) Analysis Performed At Patho logist Time Signature WBC 6.8 4.0 - 9.5 [facility] x10(3)/[facility] LABORATORY RBC 4.67 4.58 - [facility] 5.54 [facility] x10(6)/[facility] LABORATORY Hemoglobin 14.0 13.7 - [facility] 16[facility] gm/dL [facility] Hematocrit 41.0 40.5 - [facility] 48.5 % [facility] MCV 87.8 82.9 - [facility] 93.1 [facility] LABORATORY MCH 30.0 27.5 - [facility] RYAN 32.1 pg [facility] MCHC 34.1 32.0 - [facility] 35.7 gm/dL [facility] Platelets 197 145 - 357 [facility] x10(3)/[facility] LABORATORY RDWSD 46.4 (H) 36.0 - [facility] 45.0 [facility] LABORATORY RDWCV 14.5 (H) 11.4 - [facility] RYAN 13.8 % [facility] LABORATORY MPV 9.7 7.6 - 12.9 [facility] LABORATORY nRBC % Auto 0.0 % [facility]OR[facility] nRBC Abs Auto 0.000 0.000 - BARBARA DAVIS 0.000 [facility] x10(3)/[facility] LABORATORY Specimen Anatomical Collection Method Collection Time Receive d Time (Source) Location / / Volume Laterality Blood specimen 07/05/2017 4:55 PM 017 5:24 (specimen) EST PM EST Resulting Agency Comment Spec In Lab Daphne Shahid MD HEMATOLOGY ORDERABLES Performing Organization Address City/State/ZIP [place] [address] (ABNORMAL) Cardiac Enzymes (LEB/CGP) [...] meets the diagnosis for a myocardial infarction (TX). Detection of a rise and/or fall of [...] additional sample may be indicated. Reference: Third Felton Definition of Myocardial Infarction. Journal of the [place] College of Cardiology 2012;60:1581-98 CK, Total 191 0 - 200 unit/L [facility] Specimen Anatomical Collection Method Collection Time Receive d Time (Source) Location / / Volume Laterality Blood specimen 07/05/2017 4:55 PM 017 5:56 (specimen) EST PM EST Resulting Agency Comment Spec In Lab Daphne Shahid MD CHEMISTRY ORDERABLES Performing Organization Address City/[facility]/[place] [address] (ABNORMAL) pro-Brain Natriuretic Peptide (07/05/2017 4:55 PM EST) athologist Signature ProBNP 1,598 (H) <=125 [facility] pg/mL [facility]OR[facility]ORY Specimen Anatomical Collection Method Collection Time Receive d Time (Source) Location / / Volume Laterality Blood specimen 07/05/2017 4:55 PM 017 5:24 (specimen) EST PM EST Resulting Agency Comment Spec In Lab Daphne Shahid MD CHEMISTRY ORDERABLES Performing Organization Address City/[facility]/ZIP Code Phon e Number [address] Magnesium (07/05/2017 4:55 PM EST) athologist Signature Magnesium 0.78 0.69 - 1.07 [facility] mmol/L [facility] LABOR[facility]ORY Specimen Anatomical Collection Method Collection Time Receive d Time (Source) Location / / Volume Laterality Blood specimen 07/05/2017 4:55 PM 017 5:24 (specimen) EST PM EST Resulting Agency Comment Spec In Lab Daphne Shahid MD CHEMISTRY ORDERABLES Performing Organization Address City/[facility]/[place] [address] (ABNORMAL) Basic Metabolic Panel (non-fasting) (07/05/2017 4:55 PM EST) athologist Signature Glucose Lvl 230 (H) 65 - 199 [facility] mg/dL [facility] LABORATORY [...] [facility] Estimated GFR >60 >=60 [facility] Comment: The reported eGFR should be multiplied b y 1.2 for patients. The MDRD is not an appropriate measure o f renal function for patients with body mass extremes or in patients with acute kidney failure. http://Otonomy/DHnkdep http://Otonomy/[facility] Specimen Anatomical Collection Method Collection Time Receive d Time (Source) Location / / Volume Laterality Blood specimen 07/05/2017 4:55 PM 017 5:24 (specimen) EST PM EST Resulting Agency Comment Spec In Lab Daphne Shahid MD CHEMISTRY ORDERABLES Performing Organization Address City/[facility]/[place] [address] (ABNORMAL) APTT (07/05/2017 4:55 PM EST) P athologist Signature PTT 41 (H) 25 - 35 sec [facility] Comment: The recommended therapeutic range for fu ll dose, unfractionated heparin at [facility] is 80 ? 114 seconds. The use [...] Address City/State/[place] [address] (ABNORMAL) POCT Glucose (07/05/2017 4:53 PM EST) P athologist Signature POC Glucose 208 (H) 65 - 199 [facility] mg/dL [facility] Comment: [...] Address City/State/ZIP Code Phon e Number [address] EKG 12 Lead (07/05/2017 4:32 PM EST) Component Value Ref Range Test Analysis Performed Pathologis t Method Time At Signature Ventricular rate 97 BPM MUSE SYSTEM Atrial Rate 97 BPM MUSE SYSTEM P-R Interval 148 ms MUSE SYSTEM QRS Duration 96 ms MUSE SYSTEM Q-T Interval 364 ms MUSE SYSTEM QTC Calculated 462 ms MUSE SYSTEM (Bezet) Calculated P [place] 48 degrees MUSE SYSTEM Calculated R [place] -33 degrees MUSE SYSTEM Calculated T [place] 98 degrees MUSE SYSTEM INTERPRETATION Normal sinus [...] 3 ) 0821 (See Alternative - Provider: Moer Luther RN) 0840 (See Alternative - Provider: [...]
Routine documented in this encounter Care Teams Winding Lathe Operator Relationship Specialty Start Date End Date Lovely Vicente MD PCP - General 04/16/[address] [place] [address] [address] [place] [address] documented as of this encounter
--- OUTSIDE RECORDS SUMMARY | 2022-04-20 08:19 | XMS_ITS | Encounter Summary ---
:1945 [place] [address] Care Team Providers Name Role Phone Lovely Vicente MD Primary Care Provider Reason for Visit Auth/Cert Specialty Diagnoses / Procedures Referred By Contact Refer red To Contact Diagnoses STEMI (ST elevation myocardial infarction) NSTEMI STEMI Procedures CARDIAC CATHETERIZATION NAYE IPI Referral ID Status Reason Start Date Expiration Date Visits Requ ested Visits Authorized [id number] 1 1 Encounter Details Date Type Department Care Team Description 07/07/2017 Anesthesia Event Main Operating Room Yifan Jaime MD [facility] [place] [address] [facility] Ginny Murray MD [facility] [place] [address] [facility] [place] [address] Anesthesia Record Procedure Summary Procedure Name [...] 2342 LDA Cath/EP Sheath 07/05/17; 0606; 8 Guinean 07/05/17 0606 by 1118 by (Fr); Right; Femoral Lilliana Park, Yane Cook, RN PIV 07/05/17; 1720; median 07/05/17 1720 by 07/11/17 2355 by vein (underside of arm), Prior, Yanet Maza, Angela Mccurdy, left; 18 gauge; removed CREDIT ANALYSIS MANAGER per policy/procedure; 07/11/17; 2355 Intra-Aortic Balloon [...] Miller, Carrie L, Type: Cuffed; ETT Size: MANUAL ARTS TEACHER 8 mm; Santiago Blade: 2; Notes: Asleep, [...] Murray MD - 07/08/2017 5:08 PM EST [facility] [place] of Anesthesiology Post-procedure Note Patient: Don Fatima Procedure Summary Date Anesthesia Start Anesthesia Stop Room / Location 07/07/17 1335 1836 [facility] OR [facility] MAIN OR Procedure Diagnosis Surgeon Responsible Provider @CABG, USING ARTERIAL GRAFT;SINGLE ARTERIAL GRAFT (WRVU 33.75) (N/A Chest); @CABG, TWO VENOUS GRAFTS & ARTERIAL GRAFT (WRVU 7.93) (N/A Chest); ENDOSCOPIC HARVEST VEIN(S) FOR CABG (WRVU 0.31) (Right Leg) (CAD) Yuan Freitas MD Hartman, Gregg S, MD All Anesthesia Providers: Anesthesiologist: Yifan Perez MD Agricultural Produce Washer: Ginny Murray MD Most Recent Vitals: 07/08/17 [...] [facility] ??? PRO THYROIDECTOMY 03/28/2013 THYROIDECTOMY, TOTAL OR COMPLETE performed by Manny Mcknight MD at [facility] MAIN OR Social History Substance Use Topics [...] Cardiology Zulma Dolan MD [facility] [place], [place] [address] (Wo rk) 05/28/2022 Laboratory Appointment Lab 05/28/2022 Office Visit Cardiology Zulma Dolan MD [facility] [place] [address] Liz Poole PA [facility] [place] [address] 06/10/2022 Office Visit Dermatology Laura Scherer MD [facility] [address]MAT [place], [place] [address] (Wo rk) documented as of [...] mg documented in this encounter Care Teams Physical Science Professor Relationship Specialty Start Date End Date Lovely Vicente MD PCP - General 04/16/[address] [place] [address] documented as of this encounter
--- OUTSIDE RECORDS SUMMARY | 2022-04-20 08:20 | XMS_ITS | Encounter Summary ---
:1945 Author Organization [facility] [place] [address] Care Team Providers Name Role Phone Angela Holliday APRN Primary Care Provider Reason for Visit Reason Comments Skin Check Encounter Details Date Type Department Care Team Description 07/31/2013 Follow-Up Dermatology at Rigoberto Forman eoplasm of unspecified nature of bone, soft tissue, and skin (Primary Dx); Abdelrahman HOOPER MD Seborrheic psoriasis- scalp and ingtergl uteal area; [address] [facility] Atypical nevus [place] [phone] [facility] [place], [place] [address] (Wo rk) Social History Tobacco [...] encounter. Rigoberto Albarran MD Section of Dermatology [facility] documented in this encounter Plan of Treatment Upcoming Encounters Date Type Specialty Care Team Description 05/28/2022 Appointment Cardiology Zulma Dolan MD [facility] [address] [place] [address] (Wo lissa) 05/28/2022 Laboratory Appointment Lab 05/28/2022 Office Visit Cardiology Zulma Dolan MD [facility] [address] Liz Poole PA [facility] [place] [address] 06/10/2022 Office Visit Dermatology Laura Scherer MD [facility] [address], [place] [address] (Wo rk) Scheduled Orders Name [...] Component Value Ref Test Analysis Performed At [facility] gist Range Method Time Signature Surgical CERNER Pathology ? [facility] Report ? Provider: ?? RIGOBERTO ALBARRAN III Pt. Name: ?? GREGORY HOANG ?A ? Acc #: ?[id number] ? Pt. ? Col Date: ?? 07/31/2013 [...] controls. ??These ? IHC studies provide [facility] pathologist with adjunctive diagnostic information. [...] 0.9 x 0.8 x 0.2 cm. ? [facility] ? Provider: ?? DEION III, RIGOBERTO Pt. Name: ?? GREGORY HOANG ?A ? Acc #: ?[id number] ? Pt. ? Col Date: ?? 07/31/2013 [...] [facility]/ZIP Code Phon e Number [address] CERNER MILLENNIUM Specimen to [...] [facility]/[place] [address] CERNER MILLENNIUM documented in this encounter Visit Diagnoses Diagnosis Neoplasm of unspecified nature of bone, soft tissue, and skin - Primary Seborrheic psoriasis- scalp and ingtergl uteal area Other psoriasis Atypical nevus of abdominal wall Benign neoplasm of skin of trunk, except scrotum documented in this encounter Care Teams Rail Walker Relationship Specialty Start Date End Date Angela Holliday APRN PCP - General 01/25/13 04/15/[address] [place] [address] documented as of this encounter
--- OUTSIDE RECORDS SUMMARY | 2022-04-20 08:20 | XMS_ITS | Encounter Summary ---
:1945 Author Organization [facility] [place] [address] Care Team Providers Name Role Phone Lovely Vicente MD Primary Care Provider Reason for Visit Reason Comments Thyroid Cancer Encounter Details Date Type Department Care Team Description 06/05/2015 Office Visit Endocrinology at [facility] Albertina Prescott, History of papillary [facility] MD Luz adenocarcinoma of [facility] thyroid (Primary Dx) [place] [address] CENTER [phone] [place] [address] Social History Tobacco Use Types Packs/Day Years [...] the thyroid gland were obtained using a Oculus360 ultrasound machine. All measurements are given as AP x Transverse x Longitudinal Right Lobe: Absent Left Lobe: Absent Isthmus: Absent Central/Lateral neck: no morphologically abnormal lymph nodes. Impression: No sonographic evidence of recurrence. LUZ PRESCOTT MD [employer] Managerhoning machine set up operator tool Section of Endocrinology [facility] [...] Diagnostic, Drum (ACCU-CHEK COMPACT TEST) Strip by [facility]Non-Drug; Combo Route) route 2 times daily. Yes [...] --f/u in 1 year LUZ PRESCOTT MD [employer] Managerhoning machine set up operator tool Section of Endocrinology [facility] [...] [facility] [address] [place], [place] [address] (Wo rk) 05/28/2022 Laboratory Appointment Lab 05/28/2022 Office Visit Cardiology Zulma Dolan MD [facility] [place] [address] Liz Poole PA [facility] [place] [address] 06/10/2022 Office Visit Dermatology Laura Scherer MD [facility] ER [address] [place], [place] [address] (Wo rk) documented as of [...] athologist Signature Thyroglobulin 0.6 <=54.9 CERNER ng/mL [facility] Comment: Interpret with caution. Tg [...] BR et al. J Clin Endo Metab 1999;84:3261-2642). Assay performed using the DPC Immulite T [...] Organization Address City/State/[place] [address] CERNER MILLENNIUM (ABNORMAL) TSH (06/05/2015 9:04 AM EST) P athologist Signature TSH 5.88 (H) 0.27 - 4.20 CERNER mcIU/mL MILLENNIUM Specimen Anatomical Collection Method Collection Time Receive d Time (Source) Location / / Volume Laterality Blood specimen 06/05/2015 9:04 AM 015 9:15 (specimen) EST AM EST Resulting Agency Comment Spec In Lab Luz Prescott MD CHEMISTRY ORDERABLES Performing Organization Address City/[facility]/[place] [address] CERNER MILLENNIUM documented in this encounter Visit Diagnoses Diagnosis 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
--- OUTSIDE RECORDS SUMMARY | 2022-04-20 08:20 | XMS_ITS | Encounter Summary ---
:1945 Author Organization [facility] [place] [address] Care Team Providers Name Role Phone MiyaAngela STACIE Primary Care Provider Encounter Details Date Type Department Care Team Description 04/26/2014 Office Visit Endocrinology at [facility] Albertina Palmer, Papillary thyroid [facility] [place] [address] CENTER [phone] ENDOCRINOLOGY DEPT [place] [address] Social History Tobacco Use Types Packs/Day Years [...] [place]. Rosalind Palmer Endocrine Staff Physician [facility] Rosalind Palmer MD - 04/26/2014 8:39 AM [...] yr Rosalind Palmer Endocrine Staff Physician [facility] documented in this encounter Plan of Treatment Upcoming Encounters Date Type Specialty Care Team Description 05/28/2022 Appointment Cardiology Zulma Dolan MD [facility] [address] [place], [place] [address] (Wo rk) 05/28/2022 Laboratory Appointment Lab 05/28/2022 Office Visit Cardiology Zulma Dolan MD [facility] [place] [address] Liz Poole PA [facility] [place] [address] 06/10/2022 Office Visit Dermatology Laura Scherer MD [facility] DR TEJA GR-DERMAT [place]LOGY [place], [place] [address] (Wo rk) documented as of [...] athologist Signature Thyroglobulin <0.4 <=54.9 CERNER ng/mL [facility] Comment: Interpret with caution. Tg levels [...] BR et al. J Clin Endo Metab 1999;84:5608-5051). Assay performed using the DPC Immulite T [...] Address City/State/ZIP Code Phon e Number [address] CERNER MILLENNIUM (ABNORMAL) TSH (04/26/2014 9:07 AM EDT) P athologist Signature TSH 4.46 (H) 0.27 - 4.20 CERNER mcIU/mL [place]ILLENNIUM Specimen Anatomical Collection Method Collection Time Receive d Time (Source) Location / / Volume Laterality Blood specimen 04/26/2014 9:07 AM 014 9:12 (specimen) EDT AM EDT Resulting Agency Comment Spec In Lab Rosalind Palmer MD CHEMISTRY ORDERABLES Performing Organization Address City/[facility]/ZIP Code Phon e Number [address] CERNER MILLENNIUM documented in this encounter Visit Diagnoses Diagnosis Papillary thyroid carcinoma Malignant neoplasm of thyroid gland documented in this encounter Care Teams Field Crop Technical Officer Relationship Specialty Start Date End Date Angela Holliday APRN PCP - General 01/25/13 04/15/[address] [place] [address] documented as of this encounter
--- OUTSIDE RECORDS SUMMARY | 2022-04-20 08:20 | XMS_ITS | Encounter Summary ---
:1945 Author Organization [facility] [place] [address] Care Team Providers Name Role Phone Lovely Vicente MD Primary Care Provider Reason for Visit Reason Comments Skin Lesion Encounter Details Date Type Department Care Team Description 11/24/2016 [facility] uncertain behavior [facility]; Road IIIMD Pigmented skin lesion of uncertain natur e; [address] [facility] [place] of [place] [address] [facility] SIMÓN-DERMATOLGY [place], [place] [address] Social History Tobacco Use Types [...] or concerns, please call the office at [phone]. If it is after 5PM, or a holiday or weekend, please call [phone] and ask for the Head Pastry Chef on-call. documented in this encounter Progress Notes Nohemi Brown LPN - 11/24/2016 7:45 AM EDT Images from the original note were not included. DERMATOLOGY ESTABLISHED PATIENT CLINIC NOTE Date of service: 11/24/2016 oDn Fatima : 1945 Provider: Rigoberto Garcia MD PROBLEM: new spots on his back SKIN HISTORY: Melanoma - 0.98 mm with a Ede Level IV, high on his mid back in 2005 ?? Psoriasis HPI Don Fatima is a 71 y.o. year old male.Established patient of [employer]. Last seen 06/05/16. Here today for new [...] encounter. Rigoberto Garcia MD Section of Dermatology [facility] documented in this encounter Plan of Treatment Upcoming Encounters Date Type Specialty Care Team Description 05/28/2022 Appointment Cardiology Zulma Dolan MD [facility] er [place] [address] (Wo rk) 05/28/2022 Laboratory Appointment Lab 05/28/2022 Office Visit Cardiology Zulma Dolan MD [facility] [place] [address] Liz Poole PA [facility] [place] [address] 06/10/2022 Office Visit Dermatology Laura Scherer MD [facility] ER DR [address]-DERMAT [place], [place] [address] (Wo rk) documented as [...] Test Analysis Performed At [facility] gist Range Method Time Signature Surgical [id number] ?Location: [facility] Report The [...] Organization Address City/State/[place] [address] Specimen to Pathology (NON-OR) (11/24/2016 8:28 AM EDT) Specimen Anatomical Collection Method Collection Time Receive d Time (Source) Location / / Volume Laterality AP Specimen 11/24/2016 8:28 AM 7 9:29 EDT AM EDT Narrative [facility] LABORAT ORY - 11/24/2016 9:29 AM EDT Specimen requisition ordered. ??Separate Pathology report to follow Resulting Agency Comment Spec In Lab Rigoberto Garcia III, MD PATHOLOGY/CYTOLOGY ORDERABLE S Performing Organization Address City/State/[place] [address] documented in this encounter Visit Diagnoses Diagnosis Neoplasm of uncertain behavior of skin Pigmented skin lesion of uncertain natur e History of melanoma Personal history of malignant melanoma o f skin documented in this encounter Care Teams Physician Vice President Relationship Specialty Start Date End Date Lovely Vicente MD PCP - General 04/16/[address] [place] [address] documented as of this encounter
--- OUTSIDE RECORDS SUMMARY | 2022-04-20 08:20 | XMS_ITS | Encounter Summary ---
:1945 Author Organization [facility] [place] [address] Care Team Providers Name Role Phone Angela Holliday APRN Primary Care Provider Encounter Details Date Type Department Care Team Description 04/30/2014 Orders Only Endocrinology at [facility] Albertina Palmer, Thyroid cancer [facility] Jorge Boyer MD (Primary Dx) [place] [address] [facility] [phone] CENTER ENDOCRINOLOGY DEPT [place], [place] [address] Social History Tobacco Use Types [...] MD [facility] er Dr [place], [place] [address] (Wo rk) 05/28/2022 Laboratory Appointment Lab 05/28/2022 Office Visit Cardiology Zulma Dolan MD [facility] [place] [address] Liz Poole PA [facility] [place] [address] 06/10/2022 Office Visit Dermatology Laura Scherer MD [facility] ER DR TEJA GR-DERMAT [place], [place] [address] (Wo rk) documented as of this encounter Visit Diagnoses Diagnosis Thyroid cancer - Primary Malignant neoplasm of thyroid gland documented in this encounter Care Teams Asset Protection Detective Relationship Specialty Start Date End Date Angela Holliday APRN PCP - General 01/25/13 04/15/[address] [place] [address] documented as of this encounter
--- OUTSIDE RECORDS SUMMARY | 2022-04-20 08:20 | XMS_ITS | Encounter Summary ---
:1945 Author Organization [facility] [place] [address] Care Team Providers Name Role Phone MiyaAngela STACIE Primary Care Provider Reason for Visit Reason Comments Post Op voiding trial Encounter Details Date Type Department Care Team Description 04/05/2013 Office Visit Urology at [facility] Darryl Egan, UTI ([facility] MD tract infection) [facility] (Primary Dx) [place] [address] UROLOGY DEPT [phone] [place], [place] [address] Social History Tobacco Use Types [...] Dolan MD [facility] [place], [place] [address] (Wo rk) 05/28/2022 Laboratory Appointment Lab 05/28/2022 Office Visit Cardiology Zulma Dolan MD [facility] [place] [address] Liz Poole PA [facility] [place] [address] 06/10/2022 Office Visit Dermatology Laura Scherer MD [facility] DR TEJA GR-DERMAT [place]LOG[place], [place] [address] (Wo rk) documented as of this encounter Procedures Procedure Name Priority Date/Time Associated Diagnosis Comme nts URINE CULTURE Routine 04/05/2013 11:48 AM UTI (lower urinary R esults for this EDT tract infection) procedure a re in the results section . documented in this encounter Results Urine culture Clean Catch Urine (04/05/2013 11:48 AM EDT) Component Value Ref Test Analysis Performed At [facility] Method Time Signature Urine Culture CERNER ? Patient Name: GREGORY HOANG ? Ordered By: DARRYL EGAN [facility] ? MR#: [id number] ?LOC: ??5B ? /Sex: ??1945 (68 years), [...] S ? Patient: GREGORY HOANG ? MR#: [id number] ? FOOTNOTES ? (1) ? This organism [...] Address City/State/[place] [address] RAKESH WALKER documented in this encounter Visit Diagnoses Diagnosis UTI (lower urinary tract infection) - Pr imary Urinary tract infection, site not specif ied documented in this encounter Care Teams Software Deployment Engineer Relationship Specialty Start Date End Date Angela Holliday APRN PCP - General 01/25/13 04/15/[address] [place] [address] documented as of this encounter
--- OUTSIDE RECORDS SUMMARY | 2022-04-20 08:20 | XMS_ITS | Encounter Summary ---
:1945 Author Organization [facility] [place] [address] Care Team Providers Name Role Phone Lovely Vicente MD Primary Care Provider Encounter Details Date Type Department Care Team Description 07/05/2017 Telephone Cardiology Kim Galindo MD [facility] [place] [address] CARDIOLOGY DEPT [phone] [place], [place] [address] (Wo rk) Social History Tobacco [...] 1:54pm Referring Provider: Ivania CROWELL) Patient Location: [facility] Presenting Symptoms per OSH: [...] elevated troponin, transport patient to [facility] for cath this afternoon and arrhythmia monitoring. Kim Galindo MD Medical Insurance Coding Specialist documented in this encounter Plan of Treatment Upcoming Encounters Date Type Specialty Care Team Description 05/28/2022 Appointment Cardiology Zulma Dolan MD [facility] Dr [place], [place] [address] (Wo rk) 05/28/2022 Laboratory Appointment Lab 05/28/2022 Office Visit Cardiology Zulma Dolan [place] [facility] [place] [address] Liz Poole PA [facility] [place] [address] 06/10/2022 Office Visit Dermatology Laura Scherer MD [facility] DR TE[address] GR-DERMAT [place], [place] [address] (Wo rk) documented as of this encounter Visit Diagnoses Not on filedocumented in this encounter Care Teams Shot Packer Relationship Specialty Start Date End Date Lovely Vicente MD PCP - General 04/16/[address] [place] [address] documented as of this encounter
--- OUTSIDE RECORDS SUMMARY | 2022-04-20 08:20 | XMS_ITS | Encounter Summary ---
:1945 Author Organization [place] [address] Care Team Providers Name Role Phone Lovely Vicente MD Primary Care Provider Reason for Visit Reason Onset Date Comments Medication Refill 12/24/2016 Encounter Details Date Type Department Care Team Description 12/24/2016 Refill Endocrinology at [facility] Luz Stallings MD [facility] [place] [address] ENDOCRINOLOGY DEPT [phone] [place], [place] [address] (Wo rk) Social History [...] [facility] [place] [address] [place] [address] (Wo rk) 05/28/2022 Laboratory Appointment Lab 05/28/2022 Office Visit Cardiology Zulma Dolan MD [facility] [place] [address] Liz Poole PA [facility] [place] [address] 06/10/2022 Office Visit Dermatology Laura Scherer MD [facility] DR TEJA GR-DERMAT [place], [place] [address] (Wo rk) documented as of this encounter Visit Diagnoses Not on filedocumented in this encounter Care Teams Ordering Machine Operator Relationship Specialty Start Date End Date Lovely Vicente MD PCP - General 04/16/[address] [place], [place] [address] documented as of this encounter
--- OUTSIDE RECORDS SUMMARY | 2022-04-20 08:20 | XMS_ITS | Encounter Summary ---
:1945 Author Organization [facility] [place] [address] Care Team Providers Name Role Phone Miya Angela STACIE Primary Care Provider Encounter Details Date Type Department Care Team Description 04/24/2013 Telephone [place]rology [place] [facility] Zhen Bowman MD [facility] [place] [address] UROLOGY DEPT [phone] [place], [place] [address] (Wo rk) Social History Tobacco [...] Cardiology Zulma Dolan MD [facility] [place], [place] [address] (Wo rk) 05/28/2022 Laboratory Appointment Lab 05/28/2022 Office Visit Cardiology Zulma Dolan MD [facility] [place] [address] Liz Poole PA [facility] [place] [address] 06/10/2022 Office Visit Dermatology Laura Scherer MD [facility] DR TE[address] GR-DERMAT [place], [place] [address] (Wo rk) documented as of this encounter Visit Diagnoses Not on filedocumented in this encounter Care Teams Band Sawmill Operator Relationship Specialty Start Date End Date Angela Holliday APRN PCP - General 01/25/13 04/15/[address] [place] [address] documented as of this encounter
--- OUTSIDE RECORDS SUMMARY | 2022-04-20 08:20 | XMS_ITS | Encounter Summary ---
:1945 Author Organization [facility] Address [facility] [place] [place] [address] Care Team Providers Name Role Phone Lovely Vicente MD Primary Care Provider Reason for Visit Reason Comments Skin Check Encounter Details Date Type Department Care Team Description 11/05/2015 Office Visit Dermatology at [facility] benign nevi; Abdelrahman HOOPER MD Lentigines; [address] [facility] History of melanoma; [place] [address] Skin exam for malignant neoplasm [phone] [facility]-DERMATOLGY [place], [place] [address] Social History Tobacco Use Types [...] service: 11/05/2015 Don Fatima : 1945 Provider: Rgioberto Garcia MD PROBLEM: skin cancer screening SKIN [...] the presence of Dr. Garcia.: GINNY CHRISTIANSEN FORGE SHOP SUPERVISOR and Judit Cruz, Clinical Scribe I performed the above scribed service and agree with the accuracy of the documentation in this encounter. Rigoberto Garcia MD Section of Dermatology [facility] documented in this encounter Plan of Treatment Upcoming Encounters Date Type Specialty Care Team Description 05/28/2022 Appointment Cardiology Zulma Dolan MD [facility] [address] [place], [place] [address] (Wo rk) 05/28/2022 Laboratory Appointment Lab 05/28/2022 Office Visit Cardiology Zulma Dolan [place] [facility] [place] [address] Liz Poole PA [facility] [place] [address] 06/10/2022 Office Visit Dermatology Laura Scherer MD [facility] DR TE[address] GR-DERMAT [place], [place] [address] (Wo rk) documented as of this encounter Visit Diagnoses Diagnosis Multiple benign nevi Benign neoplasm of skin, site unspecifie d Lentigines Other dyschromia History of melanoma Personal history of malignant melanoma o f skin Skin exam for malignant neoplasm Screening for malignant neoplasm of the skin documented in this encounter Care Teams Financial Services Manager Relationship Specialty Start Date End Date Lovely Vicente MD PCP - General 04/16/15 [facility] [address] [place] [address] (work) documented as of this encounter
--- OUTSIDE RECORDS SUMMARY | 2022-04-20 08:20 | XMS_ITS | Encounter Summary ---
:1945 Author Organization [facility] [place] [address] Care Team Providers Name Role Phone Lovely Vicente MD Primary Care Provider Reason for Visit Reason Comments Skin Check Encounter Details Date Type Department Care Team Description 04/16/2015 Follow-Up Dermatology at [facility] x of melanoma of skin; Abdelrahman HOOPER MD Multiple benign nevi [address] [place] [address] [facility]-DER[facility] [place], [place] [address] (Wo rk) Social History Tobacco [...] Dolan MD [facility] [place], [place] [address] (Wo rk) 05/28/2022 Laboratory Appointment Lab 05/28/2022 Office Visit Cardiology Zulma Dolan MD [facility] [place] [address] Liz Poole PA [facility] [place] [address] 06/10/2022 Office Visit Dermatology Laura Scherer MD [facility] [address] TE[address] GR-DERMAT [place], [place] [address] (Wo rk) documented as of this encounter Visit Diagnoses Diagnosis Hx of melanoma of skin Personal history of malignant melanoma o f skin Multiple benign nevi Benign neoplasm of skin, site unspecifie d documented in this encounter Care Teams Section Forest Fire Warden Relationship Specialty Start Date End Date Lovely Vicente MD PCP - General 04/16/[address] [place] [address] [address] [place] [address] documented as of this encounter
--- OUTSIDE RECORDS SUMMARY | 2022-04-20 08:20 | XMS_ITS | Encounter Summary ---
:1945 Author Organization [facility] [place] [address] Care Team Providers Name Role Phone Lovely Vicente MD Primary Care Provider Encounter Details Date Type Department Care Team Description 07/10/2016 Telephone Dermatology at [facility] Rigoberto White III, [address] [place] [address] [facility] [phone] [facility] MAR[facility]-DERMAT [place], [place] [address] (Wo rk) Social History Tobacco [...] Dolan MD [facility] Dr [place], [place] [address] (Wo rk) 05/28/2022 Laboratory Appointment Lab 05/28/2022 Office Visit Cardiology Zulma Dolan MD [facility] [place] [address] Liz Poole PA [facility] [place] [address] 06/10/2022 Office Visit Dermatology Laura Scherer MD [facility] [address] TE[address] MARIE-DERMAT [place], [place] [address] (Wo rk) documented as of this encounter Visit Diagnoses Not on filedocumented in this encounter Care Teams Textile Screen Printer Relationship Specialty Start Date End Date Lovely Vicente MD PCP - General 04/16/15 [facility] [address] [place] [address] documented as of this encounter
--- OUTSIDE RECORDS SUMMARY | 2022-04-20 08:20 | XMS_ITS | Encounter Summary ---
:1945 Author Organization [place] [address] Care Team Providers Name Role Phone Angela Holliday APRN Primary Care Provider Reason for Visit Reason Comments Other Encounter Details Date Type Department Care Team Description 08/01/2013 Telephone Dermatology at [facility] Rigoberto Garcia III, [address] [place] [address] [facility] [phone] TEJA MARIE-DERMAT [place], [place] [address] (Wo rk) Social History [...] them. Component Value Surgical Pathology Final Report [facility] Provider: RIGOBERTO GARCIA III Pt. Name: DON HOANG Acc #: [id number] Pt. Col Date: 07/31/2013 /Sex: 1945,(68 years),Male Rec Date: 07/31/2013 LOC: [facility] SURGICAL PATHOLOGY ---Pathologic Diagnosis--- Skin, right abdomen, shave biopsy: Lentiginous compound nevus with moderate atypia of the intraepidermal component, extending to the peripheral specimen edge, ulcerated, associated with spongiosis and superficial perivascular lymphoeosinophilic infiltrate (see Comment). CR-0 08/01/13 BJM 08/01/13 Verified by: Ian STRANGE, PhD, [facility] Dermatopathologist (Electronic Signature) The attending pathologist [...] Zulma Dolan MD [facility] [place], [place] [address] (Wo lissa) 05/28/2022 Laboratory Appointment Lab 05/28/2022 Office Visit Cardiology Zulma Dolan MD [facility] [place] [address] Liz Poole PA [facility] [place] [address] 06/10/2022 Office Visit Dermatology Laura Scherer MD [facility] DR TE[address] MARIE-DERMAT [place], [place] [address] (Wo rk) documented as of this encounter Visit Diagnoses Not on filedocumented in this encounter Care Teams Commercial Glazier Relationship Specialty Start Date End Date Angela Holliday APRN PCP - General 01/25/13 04/15/[address] [place] [address] documented as of this encounter
--- OUTSIDE RECORDS SUMMARY | 2022-04-20 08:20 | XMS_ITS | Encounter Summary ---
:1945 Author Organization [facility] [place] [address] Care Team Providers Name Role Phone MiyaLokeshAngela STACIE Primary Care Provider Encounter Details Date Type Department Care Team Description 01/16/2014 Hospital Encounter Gastroenterology at [facility] Nohemi Swann, [facility] [place] [address] [facility] [phone] [facility] [place], [place] [address] Social History Tobacco Use Types [...] you need to be checked. [facility] [phone] 8a-5p Same Day Endo [phone] 7a-8p Otherwise contact [phone] and ask to speak to the roustabout supervisor front office attendant Follow up care is a shelton part [...] Swann MD - 01/16/2014 9:49 AM EDT [facility] Operative Note Patient Name: Gregory Fatima : [id number] MR#: [id number] Case Date: 01/16/2014 Surgeon: Surgeon(s) and Role: * Nohemi Swann MD - Primary Preoperative diagnosis: 5 yr surv. Full procedure note is documented under the Procedure section of eDH. documented in this encounter Plan of Treatment Upcoming Encounters Date Type Specialty Care Team Description 05/28/2022 Appointment Cardiology Zulma Dolan MD [facility] [address] [place], [place] [address] (Wo rk) 05/28/2022 Laboratory Appointment Lab 05/28/2022 Office Visit Cardiology Zulma Dolan MD [facility] [place] [address] Liz Poole PA [facility] [place] [address] 06/10/2022 Office Visit Dermatology Laura Scherer MD [facility] DR TE[address]DERMAT [place], [place] [address] (Wo rk) documented as of this encounter [...] Surgical Pathology Report (01/16/2014 9:53 AM EDT) [facility] Method Time Signature Surgical CERNER Pathology ? [facility] Report ? Provider: ?? NOHEMI SWANN ?Pt. Name: ?? MALICKEliseo RT, GREGORY E ? Acc #: ?[id number] ?Pt. MRN: ?[id number] ? Col Date: ?? 4 ? /Sex: [...] Organization Address City/State/ZIP Code Phon e Number [place] [id number] RAKESH WALKER Specimen to [...] Address City/State/[place] [address] [facility] Specimen to Pathology (surgical or derm) (01/16/2014 [...] City/[facility]/[place] [address] CERNER MILLENNIUM COLONOSCOPY (01/16/2014 7:25 AM EDT) [facility] gist Method Time Signature COLONOSCOPY [facility] Endoscopy Patient Name: Gregory Fatima ? Procedure Date: 01/16/2014 7:25 AM ? N: [id number] ? Date of : 1945 ? Age: 68 ? Order #: [id number] ? Procedure: ? Colonoscopy Indications: ? High risk colon cancer surveillance : ? 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 dm on metformin with bs ~ 110 this ? am,s/p melanoma years ago, os a, ? goiter s/p surgery, [facility] Providers: ? Nohemi Swann MD, Blanca [...] Laterality 01/16/2014 7:25 AM EDT Angela Sotelo AREA FIELD PERSON GENERAL SURGICAL ORDERABLES Performing Organization Address City/State/ZIP [...] Routine documented in this encounter Care Teams Tinning Machine Set Up Operator Relationship Specialty Start Date End Date Angela Sotelo APRN PCP - General 01/25/13 04/15/[address] [place] [address] documented as of this encounter
--- OUTSIDE RECORDS SUMMARY | 2022-04-20 08:20 | XMS_ITS | Encounter Summary ---
:1945 Author Organization [facility] [place] [address] Care Team Providers Name Role Phone Lovely Vicente MD Primary Care Provider Encounter Details Date Type Department Care Team Description 11/28/2016 Telephone Dermatology at [facility] Rigoberto Garcia III, [address] [place] [address] [facility] [phone] [facility] SIM[address]-DERMAT [place], [place] [address] (Wo rk) Social History [...] provider. Rigoberto Garcia MD Section of Dermatology [facility] documented in this encounter Plan of Treatment Upcoming Encounters Date Type Specialty Care Team Description 05/28/2022 Appointment Cardiology Zulma Dolan MD [facility] [address] [place], [place] [address] (Wo rk) 05/28/2022 Laboratory Appointment Lab 05/28/2022 Office Visit Cardiology Zulma Doaln MD [facility] [address] Liz Poole PA [facility] [place] [address] 06/10/2022 Office Visit Dermatology Laura Scherer MD [facility] DR TEJA MARIE-DERMAT [place], [place] [address] (Wo rk) documented as of this encounter Visit Diagnoses Not on filedocumented in this encounter Care Teams Senior Technologist Relationship Specialty Start Date End Date Lovely Vicente MD PCP - General 04/16/[address] [place] [address] documented as of this encounter
--- OUTSIDE RECORDS SUMMARY | 2022-04-20 08:20 | XMS_ITS | Encounter Summary ---
:1945 Author Organization [place] [address] Care Team Providers Name Role Phone Lovely Vicente MD Primary Care Provider Reason for Visit Reason Onset Date Comments Referral 10/30/2015 Urgent referral for mac on [address] Encounter Details Date Type Department Care Team Description 10/30/2015 Telephone Ophthalmology at [facility] C Jayson Ruiz Referral (Urgent [facility] MD Grabiel referral for mac on [facility] [address] [place]) [place] [address] OPHTHALMOLOGY DEPT. [phone] [place], [place] [address] (Wo rk) Social History Tobacco [...] Dolan MD [facility] [address] [place], [place] [address] (Wo rk) 05/28/2022 Laboratory Appointment Lab 05/28/2022 Office Visit Cardiology Zulma Dolan MD [facility] [place] [address] Liz Poole PA [facility] [place] [address] 06/10/2022 Office Visit Dermatology Laura Scherer MD [facility] [address] TE[address]DERMAT [place], [place] [address] (Wo rk) documented as of this encounter Visit Diagnoses Not on filedocumented in this encounter Care Teams Conventional Underwriter Relationship Specialty Start Date End Date Lovely Vicente MD PCP - General 04/16/[address] [place], [place] [address] documented as of this encounter
--- OUTSIDE RECORDS SUMMARY | 2022-04-20 08:20 | XMS_ITS | Encounter Summary ---
:1945 Author Organization [facility] [place] [address] Care Team Providers Name Role Phone Lovely iVcente MD Primary Care Provider Reason for Visit Reason Onset Date Comments Medication Refill 06/19/2016 Encounter Details Date Type Department Care Team Description 06/19/2016 Refill Endocrinology at [facility] Luz Stallings MD [facility] [place] [address] ENDOCRINOLOGY DEPT [phone] [place], [place] [address] (Wo rk) Social History Tobacco [...] MD [facility] [place] [address] [place] [address] (Wo rk) 05/28/2022 Laboratory Appointment Lab 05/28/2022 Office Visit Cardiology Zulma Dolan MD [facility] [place] [address] Liz Poole PA [facility] [place] [address] 06/10/2022 Office Visit Dermatology Laura Scherer MD [facility] [address] [place], [place] [address] (Wo rk) documented as of this encounter Visit Diagnoses Not on filedocumented in this encounter Care Teams Shelter Advocate Relationship Specialty Start Date End Date Lovely Vicente MD PCP - General 04/16/[address] [place], [place] [address] documented as of this encounter
--- OUTSIDE RECORDS SUMMARY | 2022-04-20 08:20 | XMS_ITS | Encounter Summary ---
:1945 Author Organization [facility] [place] [address] Care Team Providers Name Role Phone Angela Holliday APRN Primary Care Provider Reason for Visit Reason Comments Benign Prostatic Hypertrophy Encounter Details Date Type Department Care Team Description 11/28/2013 Follow-Up Urology at [facility] Blade Smith, Urinary retention (Primary D x); [facility] BPH (benign prostatic hyperplasia) [place] [address] UROLOGY DEPT [place], [place] [address] (Wo rk) Social History [...] Dolan MD [facility] [address] [place], [place] [address] (Wo rk) 05/28/2022 Laboratory Appointment Lab 05/28/2022 Office Visit Cardiology Zulma Dolan MD [facility] [place] [address] Liz Poole PA [facility] [place] [address] 06/10/2022 Office Visit Dermatology Laura Scherer MD [facility] DR [address]DER[address] [place], [place] [address] (Wo rk) documented as [...] Organization Address City/State/[place] [address] CERNER MILLENNIUM documented in this encounter Visit Diagnoses Diagnosis Urinary retention - Primary Retention of urine, unspecified BPH (benign prostatic hyperplasia) Unspecified hyperplasia of prostate with out urinary obstruction and other lower urinary tract symptoms (LUTS) documented in this encounter Care Teams Glycerin Supervisor Relationship Specialty Start Date End Date Angela Holliday APRN PCP - General 01/25/13 04/15/[address] [place] [address] documented as of this encounter
--- OUTSIDE RECORDS SUMMARY | 2022-04-20 08:20 | XMS_ITS | Encounter Summary ---
:1945 Author Organization [facility] [place] [address] Care Team Providers Name Role Phone Lovely Vicente MD Primary Care Provider Encounter Details Date Type Department Care Team Description 09/03/2016 Office Visit Endocrinology at [facility] Maria Ines Stallings of [facility] MD [place] [address] [place] [address] ENDOCRINOLOGY DEPT [place], [place] [address] Social History Tobacco Use Types [...] to his magnesium pill. LUZ PRESCOTT MD Director Of Philanthropyhim tech Section of Endocrinology [facility] Luz Prescott MD - 09/03/2016 11:30 AM [...] sonographic evidence of recurrence. LUZ PRESCOTT MD Director Of Philanthropyhim tech Section of Endocrinology [facility] documented in this encounter Plan of Treatment Upcoming Encounters Date Type Specialty Care Team Description 05/28/2022 Appointment Cardiology Zulma Dolan MD [facility] [address] [place], [place] [address] (Wo rk) 05/28/2022 Laboratory Appointment Lab 05/28/2022 Office Visit Cardiology Zulma Dolan MD [facility] [place] [address] Liz Poole PA [facility] [place] [address] 06/10/2022 Office Visit Dermatology Laura Scherer MD [facility] DR [address] [place], [place] [address] (Wo rk) documented as of this encounter Results Thyroglobulin (09/07/2017 2:41 PM EST) P athologist Signature Thyroglobulin 1.4 <=54.9 KATALINA RYAN ng/mL [facility] Comment: Thyroglobulin levels may be unreliable a nd falsely low in TgAb positive samples (TgAb <20 is consistent with TgAb negati vity). If Tg Antibodies are present an alternative Tg assay performed via mass spectrometry may be indicated. ??A clinical cutoff of <2.0 ng/ml should be used for athyrotic individuals. Pediatric reference ranges have not been established. Assay performed using the [employer] Immulite T g immunometric assay (lowest detection [...] Prescott MD CHEMISTRY ORDERABLES Performing Organization Address City/[facility]/ZIP Code Phon e Number [address] TSH (09/07/2017 2:41 PM EST) athologist Signature TSH 3.93 0.27 - 4.20 [facility] mlU/ML [facility] Specimen Anatomical Collection Method Collection Time Receive d Time (Source) Location / / Volume Laterality Blood specimen 09/07/2017 2:41 PM 018 2:46 (specimen) EST PM EST Resulting Agency Comment Spec In Lab Luz Prescott MD CHEMISTRY ORDERABLES Performing Organization Address City/[facility] Phon e Number [address] Thyroglobulin (09/03/2016 11:07 AM EST) athologist Signature Thyroglobulin <0.4 <=54.9 [facility] ng/mL [facility] Comment: Interpret with caution. [...] than those obtained with T4 withdrawal protocol ([place] BR et al. J Clin Endo Metab 1999;84:3662-1160). Assay performed using the [employer] Immulite T [...] Prescott MD CHEMISTRY ORDERABLES Performing Organization Address City/[facility]/ZIP Code Phon e Number [address] TSH (09/03/2016 11:07 AM EST) P athologist Signature TSH 3.01 0.27 - 4.20 [facility] mcIU/mL [facility] Specimen Anatomical Collection Method Collection Time Receive d Time (Source) Location / / Volume Laterality Blood specimen 09/03/2016 11:07 7 (specimen) AM EST 11:22 AM EST Resulting Agency Comment Spec In Lab Luz Prescott MD CHEMISTRY ORDERABLES Performing Organization Address City/[facility]/[place] [address] documented in this encounter Visit Diagnoses Diagnosis Hx of papillary thyroid carcinoma Personal history of malignant neoplasm o f thyroid documented in this encounter Care Teams Sheet Metal Mechanic Relationship Specialty Start Date End Date Lovely Vicente MD PCP - General 04/16/[address] [place] [address] documented as of this encounter
--- OUTSIDE RECORDS SUMMARY | 2022-04-20 08:20 | XMS_ITS | Encounter Summary ---
:1945 Author Organization [facility] [place] [address] Care Team Providers Name Role Phone Lovely Vicente MD Primary Care Provider Reason for Visit Reason Comments Follow-up Encounter Details Date Type Department Care Team Description 06/03/2017 Office Visit Dermatology at Rig[facility]to Forman benign nevi; Abdelrahman HOOPER MD History of melanoma; [address] [facility] History of dysplastic nevus; [place] [address] Skin exam for malignant neoplasm [phone] [facility]-DER[facility]OLGY [place], [place] [address] Social History Tobacco Use Types [...] Zulma Dolan MD [facility] [place], [place] [address] (Wo rk) 05/28/2022 Laboratory Appointment Lab 05/28/2022 Office Visit Cardiology Zulma Dolan MD [facility] [place] [address] Liz Poole PA [facility] [place] [address] 06/10/2022 Office Visit Dermatology Laura Scherer MD [facility] DR [address] [place], [place] [address] (Wo rk) documented as of [...] skin documented in this encounter Care Teams Ab Initio Etl Developer Relationship Specialty Start Date End Date Lovely Vicente MD PCP - General 04/16/15 [facility] [address] [place] [address] documented as of this encounter
--- OUTSIDE RECORDS SUMMARY | 2022-04-20 08:20 | XMS_ITS | Encounter Summary ---
:1945 Author Organization [facility] [place] [address] Care Team Providers Name Role Phone MiyaLokeshAngela STACIE Primary Care Provider Reason for Visit Reason Onset Date Comments Post-op Problem 04/05/2013 voiding trial Encounter Details Date Type Department Care Team Description 04/05/2013 Telephone Urology at [facility] Blade Smith, Post-op Problem [facility] (voiding trial) [place] [address] UROLOGY DEPT [place] [id number] (Wo rk) Social History Tobacco Use Types [...] Zulma Dolan MD [facility] [address] [place], [place] [address] (Wo rk) 05/28/2022 Laboratory Appointment Lab 05/28/2022 Office Visit Cardiology Zulma Dolan MD [facility] [place] [address] Liz Poole PA [facility] [place] [address] 06/10/2022 Office Visit Dermatology Laura Scherer MD [facility] DR [address] [place], [place] [address] (Wo rk) documented as of this encounter Visit Diagnoses Not on filedocumented in this encounter Care Teams Line Person Relationship Specialty Start Date End Date Angela Holliday APRN PCP - General 01/25/13 04/15/[address] [place] [address] documented as of this encounter
--- OUTSIDE RECORDS SUMMARY | 2022-04-20 08:20 | XMS_ITS | Encounter Summary ---
:1945 [place] [address] Care Team Providers Name Role Phone Lovely Vicente MD Primary Care Provider Reason for Visit Auth/Cert Specialty Diagnoses / Procedures Referred By Contact Refer red To Contact Diagnoses STEMI (ST elevation myocardial infarction) NSTEMI STEMI Procedures CARDIAC CATHETERIZATION NAYE IPI Referral ID Status Reason Start Date Expiration Date Visits Requ ested Visits Authorized [id number] 1 1 Encounter Details Date Type Department Care Team Description 07/05/2017 Surgery Bed Placement Coordinator Jet Guan, CARDIAC CATHETERIZATION [facility] [place] [address] CARDIOLOGY DEPT. [phone] [place], [place] [address] (Wo rk) Social History Tobacco [...] encounter Discharge Summaries Martha Teague S, WRAPPER LAYER - 07/14/2017 9:38 AM EST Inpatient - Discharge Summary Patient Name: Gregory Hoang Patient Age: 72 y.o. Birthdate: 1945 Language: St Lucian Race: White Ethnicity: Not nor Admit Date: [...] , @ 1:20p Patient to follow-up with Orthopedic Shoe Maker/heart failure team in one week. An appointment will be made for you. You may call [phone] Patient to follow-up with Cardiac Surgery, Dr. Yuan Webber, in ~ 4 weeks with CXR, EKG. Inpatient Provider Contact Information: [facility] Section of Cardiac Surgery [facility] [address] FAX [phone] Discharge Diagnoses (Hospital Problems) Primary Diagnoses: CAD [...] by mouth daily. 90 tablet 3 07/05/2017 [id number] ??? ascorbic acid, vitamin C, (VITAMIN C) [...] hospital and ruled infor non-ST segment elevation SD. This almost certainly represents the residual of [...] Hospital Course: Gregory Hoang was admitted to [facility] on 07/05/2017 via the Cardiology Service. During his hospital course, he was taken emergently to the director of cath lab for an ongoing STEMI. An IABP [...] not take or discontinue any prescription or jdwf-eaj-hmgumny medications without asking your doctor or pharmacist [...] to have your insulin doses adjusted. [facility] Endocrine clinic office Discharge Instructions: Call your doctor if: You have a fever of greater than 101 degrees, shaking chills, if you develop redness or drainage from your incision sites, or if you have questions. Please call your surgeon's office if you have any discharge or drainage from your chest incision. Your surgeon, Dr. Yuan Webber and/or the Cardiac Surgery Physician Parole Supervisor Team may be reached at . [...] Dr. Yuan Webber. You may use a [place] Track or treadmill but avoid any pulling [...] with the surgeon. Do not ride motorcycles, [employer] tractors or horses. Avoid the use of [...] should resume a low fat, low cholesterol, [place] Heart Association Diet/Diabetic diet. Driving: No driving [...] , @ 1:20p Patient to follow-up with Orthopedic Shoe Maker/heart failure team in one week. Appointment will be made for you. You may call [phone] Patient to follow-up with Cardiac Surgery, Dr. [...] LAB, THREE L Lab 3L [facility] [phone] 09/07/2017 4:00 PM Luz Prescott MD Endocrinology at [place] [phone] Future Orders Complete By Expires EKG 12 Lead [EKG1 Custom] 08/14/2017 02/13/2018 Process Instructions: Scheduling Instructions: Questions: Which DH location will this be performed?: [place] Is a rhythm strip needed?: No If EKG Reason is Pre-op Evaluation, indicate diagnosis for surgery.: XR Chest PA & Lateral (Generic) [79700 [id number] Custom] 08/14/2017 02/13/2018 Process Instructions: Scheduling Instructions: Questions: Where will study be performed?: [place] [facility] Portable exam?: Reason for exam and clinical history: CABG x 3 Other pertinent information: Stat read required?: Date of injury if applicable: Requested Time: Referral to Cardiac Rehab [VBR303 Custom] As directed Process Instructions: If no progress note charted, please enter Clinical details in comments. Scheduling Instructions: Questions: My question or request is: s/p CABG. Cardiac rehab at [facility] Referral to Home Health - at DISCHARGE [UWB3235 CPT(R)] As directed Process Instructions: Scheduling Instructions: Comments: DOCUMENTATION FOR VNA SERVICES (INCLUDING THOSE PATIENTS WITH MEDICARE COVERAGE REQUIRING HOME VNA SERVICES AND/OR HOSPICE SERVICES) PATIENT'S LOCATION: Gregory Hoang [address] [place] [address] [place] [address] (home) Telephone Information: Wool Shearing Supervisor's Name: self In discussion with the attending physician, it is certified that this patient is under their care and that they, or a Nurse Practitioner, or Physician Parole Supervisor who is working directly with them, [...] [facility] ([facility] [place] [employer]-is in [place] PHONE: [phone] FAX: [phone] RN orders: Cardiopulmonary assessment, incisional assessment, assess vital signs, assessment of rehab progress, medication management and effectiveness, home safety evaluation. Please draw INR if indicated and send result to:Dr Vicente [phone] PT ORDERS: Continue rehab for endurance, gait stability and strength with mobility and transfers. Home safety evaluation. Home exercise program if appropriate. Start of Care Date:24-48 hours after discharge SPECIAL INSTRUCTIONS: For any follow up questions, needs, or issues please call the Cardiac Surgery Office at [phone] FOR MEDICARE ONLY: (please delete this section [...] [facility] Section of Cardiac Surgery [facility] [address] FAX [phone] Date: 07/14/2017 CC: MD Ivania Cr Betsy, PA [address] [place] [phone] documented in this encounter Discharge Instructions Discharge [...] to have your insulin doses adjusted. [facility] Endocrine clinic office Patient InstructionsStMartha mcdonald APRN [...] not take or discontinue any prescription or ctiu-rqd-xygnuan medications without asking your doctor or pharmacist [...] to have your insulin doses adjusted. [facility] Endocrine clinic office ? Discharge Instructions: ?? Call your doctor if: You have a fever of greater than 101 degrees, shaking chills, if you develop redness or drainage from your incision sites, or if you have questions. Please call your surgeon's office if you have any discharge or drainage from your chest incision. Your surgeon, Dr. Yuan Webber and/or the Cardiac Surgery Physician Parole Supervisor Team may be reached at . [...] Dr. Yuan Webber. You may use a [place] Track or treadmill but avoid any pulling [...] with the surgeon. Do not ride motorcycles, [employer] tractors or horses. Avoid the use of [...] should resume a low fat, low cholesterol, [place] Heart Association Diet/Diabetic diet. ?? Driving: No [...] @ 1:20p ?? Patient to follow-up with Orthopedic Shoe Maker/heart failure team in one week. An appointment has been made for you, you can call [phone] ?? Patient to follow-up with Cardiac Surgery, [...] LAB, THREE L Lab 3L [facility] [phone] ?? 09/07/2017 4:00 PM Luz Prescott MD Endocrinology at [place] [phone] Future Orders Complete By Expires ?? EKG 12 Lead [EKG1 Custom] 08/14/2017 02/13/2018 ?? Process Instructions: ? Scheduling Instructions: ? Questions: ? Which location will this be performed?: [place] ?? Is a rhythm strip needed?: No ?? If EKG Reason is Pre-op Evaluation, indicate diagnosis for surgery.: ?? XR Chest PA & Lateral (Generic) [[id number] Custom] 08/14/2017 02/13/2018 ?? Process Instructions: ? Scheduling Instructions: ? Questions: ? Where will study be performed?: [place] [facility] ?? Portable exam?: ?? Reason for exam and clinical history: CABG x 3 ?? Other pertinent information: ?? Stat read required?: ?? Date of injury if applicable: ?? Requested Time: ?? Referral to Cardiac Rehab [MOS274 Custom] As directed ? Process Instructions: ?? [...] - 07/14/2017 2:34 PM EST The patient/outside sales representative has been provided a list of Home Health Agencies/DME vendors which serve their preferred geographic area. A letter describing our affiliations was reviewed with them and theywere educated about their right to choose where referrals are placed. Patient requests referral to [facility]. PHONE: [phone] FAX: [phone] Expected date of discharge: 07/14 Referral routed to the Director Facilities Maintenance for matching with agency/vendor and to provide [...] to have your insulin doses adjusted. [facility] Endocrine clinic office Kathie Carrera APRN [facility] Endocrinology Diabetes Management Pager [phone] minutes of this 35 minute visit was spent with the patient in counseling on diabetes and treatment plan, reviewing all glucose and insulin data as well as relevant laboratory results with the patient, and coordination of care on the inpatient unit including nursing and primary team. Zulma Andres RN - 07/14/2017 10:30 AM EST The patient/outside sales representative has been provided a list of Home Health Agencies/DME vendors which serve their preferred geographic area. A letter describing our affiliations was reviewed with them and theywere educated about their right to choose where referrals are placed. Patient requests referral to : Yasmani Munguia ([facility] [place] [facility]-is in [place]) PHONE: [phone] FAX: [phone]. Expected date of discharge: 07/14/17 Referral routed to the Director Facilities Maintenance for matching with agency/vendor and to provide [...] #6 s/p CABG X3. FSBG [address] at [place], reports no symptoms but did drink some [...] continue to follow Katerin Azul APRN [facility] Endocrinology Diabetes Management Pager [phone] 15 minutes of this 25 minute visit [...] of infiltration/extravasation Discussed plan of care with SUPERVISORY AIDE and RN. Elevate exrtemity and apply intermittent Warm compresses. Name of MD contacted Dr. Shaw Brown 07/13/2017 @ 0655 Name of RN contacted Ale Rangel RN Name of Pharmacist if consulted NA Name of Plastics MD ( if consulted) NA (Mandatory photo for infiltrations/ extravasations scoring a stage 2 or greater, but recommended forstage 1)( include measuring tape and identifier in the photo) CONSTITUTIONAL LAW PROFESSOR CARING FOR THIS PATIENT WILL CONTINUE [...] measuring tape and identifier in the photo) CONSTITUTIONAL LAW PROFESSOR CARING FOR THIS PATIENT WILL CONTINUE [...] regard to both infiltrates addressed by this feature writer.All of Mr. Hoang's responses were entirely appropriate. Images of infiltrates attached here. Martha Sharp APRN - 07/13/2017 8:01 AM EST Cardiac Surgery Progress Note: ID: [id number] 72 year old male POD#6 s/p CABGx3 [...] ?? I have met with the patient/outside sales representative to discuss discharge planning needs. I have provided the [facility], Office of Care Management letter from the Diesel Service Technician pertaining to rehab referrals. I have also provided a letter describing our affiliations within the [facility] and educated them about their right to choose where referrals are placed. ?? I reviewed the different levels of rehab including SNF, swing, acute and LTAC with the patient/outside sales representative. ?? The patient/outside sales representative has been provided a list of facilities within their preferred geographic area. ?? I have requested that the patient/outside sales representative provide at least three choices for referral. ?? The patient/outside sales representative have requested referrals to: ?? 1. . ?? 2. [facility] ?? 3. More to be entered ?? Expected date of discharge: 07/14 Note routed to Director Facilities Maintenance who will communicate referrals to facilities and [...] hours. If BG remains greater than 240, ylvmwp46 units (no more than three times) & [...] hours. If BG remains greater than 240, suoxbn32 units (no more than three times) & call for new basal insulin orders. ??If less than 240 after two hours, give no insulin and resume prior schedule. Will continue to follow Katerin Azul APRN [facility] Endocrinology Diabetes Management Pager [phone] 20 minutes [...] AM EST Cardiac Surgery Progress Note: ID: [id number] 72 year old male POD#5 s/p CABGx3 [...] 7:18 PM EST Patient arrived from [facility]. VSS. MSI dressing pulled off [...] CAD, HTN, CHF NYHA Class III-IV, MARIA VCITORIA on CPAP, BPH, thyroid carcinoma s/p thyroidectomy [...] AM EST Cardiac Surgery Progress Note: ID: [id number] 72 year old male POD#4 s/p CABGx3 [...] hours. If BG remains greater than 240, [id number] units (no more than three times) & [...] AM EST Cardiac Surgery Progress Note: ID: [id number] 72 year old male POD#3 s/p CABGx3 [...] Gas) No results found for: PHART, PO2ART, CWT7HRJ Assessment/Plan: 72 year old male POD#3 s/p [...] Mami Thao - 07/09/2017 6:29 PM EST Cloth Shrinking Tester Encounter Note Patient Name: Gregory Hoang : [id number] MR#: [id number] Admit Date: 07/05/2017 4:20 PM Hospital Day 4 days Narrative: Patient was sitting in chair, hugging heart pillow, opened his eyes, nodding to come into room Assessment: Patient was sleepy. Intervention and Outcome: Introduced organ grinder services and patient reached his hand out in appreciation. Follow-up: Cloth Shrinking Tester remains available for support. Time in Direct [...] 10:45 AM EST Report given to staff anesthetist to cover care Maddison Cee PA - 07/09/2017 9:00 AM EST Cardiac Surgery Progress Note: ID: [id number] 72 year old male POD#2 s/p CABGx3 [...] Attending Surgeon on rounds. Signed: STEPHANIE Iqbal [facility] Section of Cardiac Surgery Date: 07/09/2017 [...] when IABP d/c'ed. Gretchen Carolina, PT Pager [phone] Maddison Cee PA - 07/08/2017 11:27 AM EST Cardiac Surgery Progress Note: ID: [id number] 72 year old male POD#1 s/p CABGx3 [...] Attending Surgeon on rounds. Signed: STEPHANIE Iqbal [facility] Section of Cardiac Surgery Date: 07/08/2017 [...] place in R femoral. No hematoma. PHYSICAL THERAPY NURSE- Intact Psych- Anxious Skin- Dry, no peripheral [...] IABP in place in R femoral. PHYSICAL THERAPY NURSE- Intact Psych- Anxious Skin- Dry, no peripheral [...] note for details. DAPHNE SHAHID MD Pager [phone] ClarisaJet lynn MD - 07/05/2017 6:48 PM EST Preliminary Cardiac Catheterization Procedure Note: Procedure(s) performed: Left heart cath, IABP insertion Access: Right TOOL ROOM LATHE OPERATOR-->8fr IABP A time-out was conducted prior [...] effect. Heparin gtt maintained. Pt transferred to director of cath lab. documented in this encounter H&P Notes Daphne Shahid MD - 07/05/2017 6:08 PM EST CARDIOLOGY HISTORY & PHYSICAL EXAM Date of Admission: 07/05/2017 ( Hospital Day 0 days ) Responsible Attending: Daphne Shahid MD PCP: Lovely Vicente MD PCP#: [phone] Patient Active Problem List Diagnosis Code ??? [...] load with heparin drip and transferred to [facility]. While there, continued sob, question of chest pain. Stat TTE showing WMA diffusely and EF around 20%. No significant valvular disease. Taken to the director of cath lab urgently for ongoing STEMI. [facility] monitor I/O - s/p lasix in the director of cath lab, redose to aim net neg 1L [...] Medicine, PGY-2 Cardiology S1, Team Pager # [phone] CARDIOLOGY ATTENDING NOTE Patient: Gregory Hoang Date [...] amenable for PCI. DAPHNE SHAHID MD Pager [phone] documented in this encounter Miscellaneous Notes Consult Note - Daphne Shahid MD - 07/14/2017 11:46 AM EST Heart Failure Service Inpatient Consult Note Gregory Hoang Date of : 1945 Age: 72 y.o. Today's date: 07/14/17 PCP: Lovely Vicente MD TELEVISION TUBE INSPECTOR: None Place of Service: [facility] Reason for Consult: Dr. [...] following studies: EKG 07/14/17: NSR 75 bpm, STORE CASHIER anterior infarct, LAD CXR 07/11/17: FINDINGS: Sternotomy wires. The patient has been extubated, left chest tube removed, and Gypsy-Suzi catheter removed since the 07/07/2017 study. Atelectasis [...] was discussed with Kono. Jaden Kelley MD Surgical First Assistant Pager [phone] CARDIOLOGY ATTENDING NOTE Patient: Gregory Hoang Date [...] heart failure clinic. DAPHNE SHAHID MD Pager [phone] Plan of Care - Alden Chavarria PTA [...] home with assist Alden Chavarria PTA Pager: [phone] Inpatient Physical Therapy Problem: Acute Rehab Services [...] to supine -- Bed Mobility Goal, Rio Level supervision required -- Bed Mobility Goal, [...] - 3 days -- Gait Training Goal, Rio Level supervision required -- Gait Training Goal, [...] days -- Transfer Training Goal, Activity Type rhy-mi-rpiyc/ahvmf-oz-fnb;xtl-uk-mbqjd/sjnbh-au-sye;toilet -- Transfer Train Goal, Rio Level supervision required -- Transfer Training Goal, [...] keeping present for 2 days per family. Director Of Occupational Health noted of frustrations, house keeping sent to room. Patient offered showered twice, refused. at bedside, frustrated that shower not complete, informed that patient had refused several times. requesting to see EQUIPMENT MONITOR PHOTOTYPESETTING, paged sent to Martha, will come to bedside (middle of consult). not willing to wait, Martha notified that family had gone home. Encouraged to come for morning rounds a t 8am. Diabetes team at bedside - insulin adjustments made. Call cabello in reach. Continue to monitor. PLAN MOVING FORWARD: Ambulate, dressing changes BID, Please change drsg at 4am per Martha EQUIPMENT MONITOR PHOTOTYPESETTING request. INDIVIDUALIZED FALL PREVENTION INTERVENTIONS: Patient-specific fall [...] levels on the lower side, 60ml of Mccormick juice given after a FS of 80. [...] monitoring required during toileting and ADLs]: RN SUPERVISORY AIDE Surveillance [continuous indirect monitoring]: Barrett Monitor CPG [...] Anticipated Discharge Disposition: home with assist Pager: [phone] CLARISSA SEGAL, PT 07/12/2017 Physical Therapy Rehabilitation [...] sit/sit to supine Bed Mobility Goal, Rio Level supervision required Bed Mobility Goal, Additional Goal adheres to psternal precautions for transfer Goal: Gait Training Goal Stand Alone Therapy Goal Outcome: Ongoing (Interventions Implemented as Appropriate) 07/12/17 1225 Gait Training Goal Gait Training Goal, Date Established 07/12/17 Gait Training Goal, Time to Achieve 2 - 3 days Gait Training Goal, Rio Level supervision required Gait Training Goal, Assist [...] 3 days Transfer Training Goal, Activity Type pdw-wb-mxuwc/tveul-yw-iwl;vpj-zk-flhtv/ylgsj-jb-dvk;toilet Transfer Train Goal, Rio Level supervision required Transfer Training Goal, Additional Goal adheres to sternal precautions during transfer Consult Note - Octavia Vaughn RN - 07/12/2017 10:50 AM EST [facility] CARDIAC REHABILITATION Gregory Hoang was seen today [...] IV site, amio to other piv and ALTERATIONS SUPERVISOR at bedside to help assess, IV removed. [...] staff, he stood and marched in place. [place] weak, wanting to sit back down. Remained [...] Health/Prescription Coverage: Primary Insurance: MEDICARE Secondary Insurance: [employer] [place] Prescription Coverage: yes Preferred Pharmacy: [facility] [place] Other: none Primary Care Provider: Lovely Vicente MD [phone] Patient/Caregiver Goals of Treatment:live and get my breath back Potential Needs for Transition of Care: Rehab/SNF: [facility] Home Health: NA DME: TBD Dialysis: na Community Resources: available Transportation: yes Other: none Anticipated Barriers to Discharge/Special Considerations: none Plan: Likely SNF Rehab before home A member of the Care Management team will continue to monitor progress, follow for continuity of care and assist with transition of care planning. ERLIN Weiss Pager: [phone] Consult Note - Katerin Azul RN - [...] patient W/E coverage, Dr. Jeane Tatum, pager [phone] Katerin Azul APRN Endocrinology Diabetes Management Pager [phone] Plan of Care - Stephanie Godoy RN [...] MD - 07/07/2017 6:27 PM EST [facility] Operative Note Patient Name: Gregory Hoang : [id number] MR#: [id number] Case Date: 07/07/2017 Surgeon: Surgeon(s) and Role: * Yuan Webber MD - Primary * Michael Drake PA - Physician Parole Supervisor * Linad Flores PA - Physician Parole Supervisor Preoperative diagnosis: 3VD Postoperative diagnosis: CAD, [...] Operative Note Patient Name: Gregory Hoang : [id number] MR#: [id number] Case Date: 07/07/2017 Surgeon: Surgeon(s) and Role: * Yuan Webber MD - Primary * Michael Drake PA - Physician Parole Supervisor * Linda Flores PA - Physician Parole Supervisor Preoperative diagnosis: 3VD Postoperative diagnosis: CAD, [...] (reference Cardiac: ACS (Acute Coronary Syndrome) (Adult) [facility]). 07/07/17621 Cardiac: ACS (Acute Coronary Syndrome) Problems [...] major CV events such as , stroke, SD, repeat revascularization compared to PCI). In this [...] [employer] [facility] Cardiology S1 (Pager [phone]) Plan of Care - Emelia Ibarra RN [...] hospital and ruled infor non-ST segment elevation SD. This almost certainly represents the residual of [...] [facility] ENDOSCOPY ??? PRO THYROIDECTOMY 03/28/2013 [...] with other involved physicians Yuan Webber MD [phone] Med Student Progress Note - Katty Hahn [...] major CV events such as , stroke, SD, repeat revascularization compared to PCI). In this [...] or BiPAP - s/p lasix in the director of cath lab, was net -1.5L - s/p plavix [...] insulin drip - hold metformin - f/u [facility] ?? #Home Meds - continue levothyroxine 175mcg - CPAP at night ?? # Routine - DVT PPx: heparin drip - Diet: Healthy heart diet, NPO at midnight for CABG tomorrow - Code Status: FULL - Dispo: CVCC Katty Hahn, M3 [facility] Cardiology S1 (Pager [phone]) Plan of Care - Stephanie Godoy RN - 07/06/2017 5:00 AM EST Problem: Patient Care Overview Goal: Plan of Care Review 07/06/17 4155 Coping/Psychosocial Plan Of Care Reviewed With patient;family [...] in urinal without difficulty. Lasix given in director of cath lab, 1.4 L out at this time. [...] Zulma Dolan MD [facility] [place] [address] (Wo rk) 05/28/2022 Laboratory Appointment Lab 05/28/2022 Office Visit Cardiology Zulma Dolan MD [facility] [place] [address] Liz Poole PA [facility] [place] [address] 06/10/2022 Office Visit Dermatology Laura Scherer MD [facility] [address] [facility], [place] [address] (Wo rk) Scheduled Orders Name [...] procedure are i n the results section. BINDERY MACHINE TENDER SCAN 07/15/2017 12:00 Res ults for this [...] 07/08/2017 4:00 Results f or this ([facility] AM EST procedure are i n [...] 07/07/2017 5:15 Results f or this ([facility]) AM EST procedure are i n the [...] 07/06/2017 7:40 Results f or this ([facility]) PM EST procedure are i n the [...] 07/06/2017 2:10 Results f or this ([facility] PM EST procedure are i n [...] TYPE AND SCREEN Routine 07/06/2017 12:00 ([facility]) PM EST APTT STAT 07/06/2017 11:24 Results [...] 07/06/2017 8:10 Results f or this ([facility]) AM EST procedure are i n the [...] 07/06/2017 2:20 Results f or this ([facility]) AM EST procedure are i n the [...] 07/05/2017 8:20 Results f or this ([facility]) PM EST procedure are i n the [...] 07/05/2017 4:55 Results f or this ([facility] PM EST procedure are i n [...] 2017 EXAMINATION: XR CHEST PA AND LATERAL (T1 VisionsIC) CLINICAL HISTORY: CABG x 3 TECHNIQUE: PA [...] Teague APRN IMG DX ORDERABLES SCAN DOC: BINDERY MACHINE TENDER (07/15/2017 12:00 AM EST) Narrative 07/15/2017 12:00 [...] 186 65 - 199 [facility] mg/dL [facility] LABORATORY [...] City/State/[place] [address] POCT Glucose (07/14/2017 7:52 AM EST) athologist Signature POC Glucose 126 65 - 199 [facility] mg/dL [facility] LABORATORY [...] [facility]/[place]IP [place] [address] (ABNORMAL) Prothrombin Time (07/14/2017 [...] Address City/[facility] Code [facility] [place] [address] Potassium (07/14/2017 4:46 AM EST) athologist Signature Potassium 4.3 3.5 - 5.0 [facility] mmol/L [facility] LABORATORY [...] Address City/State/ZIP Code Phon e Number [address] POCT Glucose (07/14/2017 4:34 AM EST) athologist Signature POC Glucose 115 65 - 199 [place] mg/dL [facility] [...] [facility]/ZIP Code Phon e Number [address] POCT Glucose (07/13/2017 11:33 [...] [facility]/ZIP Code [place] [address] POCT Glucose (07/13/2017 9:25 [...] Address City/State/ZIP Code Phon e Number [address] POCT Glucose (07/13/2017 4:55 PM EST) athologist Signature POC Glucose 79 65 - 199 [facility] R[facility] mg/dL [facility] [...] Address City/State/ZIP Code Phon e Number [address] POCT Glucose (07/13/2017 11:16 AM EST) athologist Signature POC Glucose 163 65 - 199 [facility] mg/dL [facility] [...] Address City/State/ZIP Code Phon e Number [address] POCT Glucose (07/13/2017 8:07 AM EST) athologist Signature POC Glucose 96 65 - 199 [place] mg/dL [facility] [...] Address City/State/ZIP Code Phon e Number [address] (ABNORMAL) Prothrombin Time (07/13/2017 [...] Address City/State/[place] [address] (ABNORMAL) Basic Metabolic Panel (non-fasting) (07/13/2017 4:26 AM EST) athologist Signature Glucose Lvl 95 65 - 199 [facility] mg/dL [facility] LABORATORY [...] [facility] LABORATORY Calcium 7.7 (L) 8.5 - 10.5 mg/dL [facility] LABORATORY Estimated GFR 60 >=60 [facility] LABORATORY Comment: The reported eGFR should be multiplied b y 1.2 for patients. The MDRD is not an appropriate measure o f renal function for patients with body mass extremes or in patients with acute kidney failure. http://BackTrack/DHnkdep http://BackTrack/DHMCnkf Specimen Anatomical Collection Method Collection Time Receive d Time (Source) Location / / Volume Laterality Blood specimen 07/13/2017 4:26 AM 017 4:46 (specimen) EST AM EST Resulting Agency Comment Spec In Lab Makayla Wilson APRN CHEMISTRY ORDERABLES Performing Organization Address City/State/ZIP Code Phon e Number [address] POCT Glucose (07/13/2017 3:52 AM EST) athologist Signature POC Glucose 93 65 - 199 [facility] mg/dL [facility] LABORATORY [...] Address City/State/ZIP Code Phon e Number [address] POCT Glucose (07/13/2017 12:21 AM EST) athologist Signature POC Glucose 80 65 - 199 [facility] mg/dL [facility] LABORATORY [...] Address City/State/ZIP Code Phon e Number [address] POCT Glucose (07/12/2017 8:22 PM EST) athologist Signature POC Glucose 119 65 - 199 [place] ZHAORYAN mg/dL [facility] [...] [facility]/ZIP Code Phon e Number [address] POCT Glucose (07/12/2017 4:02 [...] Address City/State/ZIP Code Phon e Number [address] POCT Glucose (07/12/2017 11:28 AM EST) P athologist Signature POC Glucose 164 65 - 199 [place] ZHAORYAN mg/dL [facility] [...] Address City/State/ZIP Code Phon e Number [address] POCT Glucose (07/12/2017 7:34 AM EST) athologist Signature POC Glucose 109 65 - 199 [facility] mg/dL [facility] LABORATORY [...] Address City/State/[place] [address] (ABNORMAL) Basic Metabolic Panel (non-fasting) (07/12/2017 4:11 AM EST) athologist Signature Glucose Lvl 92 65 - 199 [facility] LABORATORY Comment: Diabetes: >=200 mg/dL plus symp toms BUN 31 (H) 10 - 20 mg/dL [facility] LABORATORY Creatinine 1.23 0.80 - [...] CENTER LABORATORY Estimated GFR 58 (L) >=60 [facility] LABORATORY Comment: The reported eGFR should be multiplied b y 1.2 for patients. The MDRD is not an appropriate measure o f renal function for patients with body mass extremes or in patients with acute kidney failure. http://BackTrack/DHnkdep http://BackTrack/DHMCnkf Specimen Anatomical Collection Method Collection Time Receive d Time (Source) Location / / Volume Laterality Blood specimen 07/12/2017 4:11 AM 017 8:57 (specimen) EST AM EST Resulting Agency Comment Spec In Lab Makayla Gordon STACIE CHEMISTRY ORDERABLES Performing Organization Address [facility] [place] [address] (ABNORMAL) Prothrombin Time (07/12/2017 [...] HEMATOLOGY ORDERABLES Performing Organization Address [facility] Phon e Number [address] Potassium (07/12/2017 4:11 AM EST) P athologist Signature Potassium 3.8 3.5 - 5.0 [facility] mmol/L [facility] LABORATORY [...] City/[facility]/ZIP [facility] Phon e Number [address] POCT Glucose (07/12/2017 4:10 AM EST) athologist Signature POC Glucose 90 65 - 199 [facility] LABORATORY [...] [facility]/ZIP Code Phon e Number [address] POCT Glucose (07/11/2017 11:57 PM EST) athologist Signature POC Glucose 98 65 - 199 [facility] LABORATORY [...] [facility]/ZIP Code Phon e Number [address] POCT Glucose (07/11/2017 8:32 PM EST) P athologist Signature POC Glucose 146 65 - 199 [place] DAV[place] mg/dL [facility]ERSITY [...] City/State/[place] [address] XR Chest PA & [...] e xtubated, left chest tube removed, and Gypsy-Suzi catheter removed since the study. Atelectasis at [...] e xtubated, left chest tube removed, and Gypsy-Suzi catheter removed since the study. Atelectasis at [...] [facility]/ZIP Code Phon e Number [address] POCT Glucose (07/11/2017 11:55 AM EST) athologist Signature POC Glucose 176 65 - 199 [place] R[place] mg/dL [facility] [...] Address City/State/[place] [address] POCT Glucose (07/11/2017 7:53 [...] [facility]/ZIP Code Phon e Number [address] POCT Glucose (07/11/2017 4:22 AM EST) athologist Signature POC Glucose 151 65 - 199 [place] ZHAORYAN mg/dL [facility] [...] Organization Address [facility]/ZIP [place] [address] Potassium (07/11/2017 2:20 AM EST) athologist Signature Potassium 4.5 3.5 - 5.0 [facility]/L [facility] LABORATORY [...] [facility]/ZIP Code Phon e Number [address] POCT Glucose (07/11/2017 12:17 [...] Address City/State/ZIP Code Phon e Number [address] POCT Glucose (07/10/2017 8:47 [...] Address City/State/[place] [address] POCT Glucose (07/10/2017 4:06 [...] Address City/State/ZIP Code Phon e Number [address] POCT Glucose (07/10/2017 3:08 PM EST) athologist Signature POC Glucose 151 65 - 199 [facility] mg/dL [facility] [...] Address City/State/ZIP Code Phon e Number [address] POCT Glucose (07/10/2017 2:25 PM EST) athologist Signature POC Glucose 146 65 - 199 [place] ZHAORYAN mg/dL [facility]IV[facility]ITY [...] Address City/State/[place] [address] POCT Glucose (07/10/2017 1:23 [...] Address City/State/[place] [address] POCT Glucose (07/10/2017 11:52 AM EST) athologist Signature POC Glucose 157 65 - 199 [facility] mg/dL [facility] [...] Address City/State/ZIP Code Phon e Number [address] POCT Glucose (07/10/2017 11:01 AM EST) P athologist Signature POC Glucose 158 65 - 199 [place] ZHAORYAN mg/dL [facility]IV[facility] [...] [facility]/ZIP Code Phon e Number [address] POCT Glucose (07/10/2017 9:54 [...] Address City/State/ZIP Code Phon e Number [address] POCT Glucose (07/10/2017 8:58 AM EST) P athologist Signature POC Glucose 183 65 - 199 [place] ZHAORYAN mg/dL UNIVERSITY [...] Address City/State/ZIP Code Phon e Number [address] POCT Glucose (07/10/2017 8:01 AM EST) P athologist Signature POC Glucose 173 65 - 199 [place] ZHAORYAN mg/dL UNIVERSITY [...] Address City/State/ZIP Code Phon e Number [address] POCT Glucose (07/10/2017 7:05 [...] Address City/State/[place] [address] POCT Glucose (07/10/2017 6:00 [...] City/State/ZIP Code Phon e Number [place] [id number] [facility] LABORATORY Drive (ABNORMAL) Differential, Automated (07/10/2017 4:28 AM EST) [facility] Method Time Signature Neutrophils % 87.9 % [facility] LABORATORY Neutr Abs (ANC) 10.70 (H) 1.70 - [facility] 6.[address] [facility] x10(3)/[facility] L LABORATORY Lymphocytes % 3.9 % [facility] LABORATORY Lymphocytes Abs 0.5 (L) 0.9 - 3.2 [facility] x10(3)/[facility] LABORATORY Monocytes % 7.0 % [facility] LABORATORY Monocyte Abs 0.8 0.3 - 0.9 [facility] x10(3)/[facility] LABORATORY Eosinophils % 0.3 % [facility] LABORATORY Eosinophils Abs 0.0 0.0 - 0.4 [facility] x10(3)/[facility] LABORATORY Basophils % 0.2 % [facility] LABORATORY Basophils Abs 0.0 0.0 - 0.1 [facility] x10(3)/[facility] LABORATORY Immature Gran % 0.70 [...] Gran Abs 0.08 (H) 0.00 - 0.04 x10(3)/[facility] LABORATORY Specimen Anatomical Collection Method Collection Time Receive d Time (Source) Location / / Volume Laterality Blood specimen 07/10/2017 4:28 AM 017 4:36 (specimen) EST AM EST Resulting Agency Comment Spec In Lab Yuan Webber MD HEMATOLOGY ORDERABLES Performing Organization Address City/[facility]/[place] [address] (ABNORMAL) Hemogram (07/10/2017 4:28 AM EST) Analysis Performed At Patho logist Time Signature WBC 12.2 (H) 4.0 - 9.5 [facility] x10(3)/[facility] LABORATORY RBC 3.31 (L) 4.58 - [place]ORY[place] [address] [facility] x10(6)/[facility] LABORATORY Hemoglobin 9.8 (L) 13.7 - [facility] 16.5 gm/dL [facility] LABORATORY Hematocrit 30.0 (L) 40.5 - [facility] 48.5 % [facility] LABORATORY MCV 90.6 82.9 - [facility] 93.1 [facility] LABORATORY MCH 29.6 27.5 - [facility] 32.1 pg [facility] LABORATORY MCHC 32.7 32.0 - [facility] 35.7 gm/dL [facility] LABORATORY Platelets 135 (L) 145 - 357 [facility] x10(3)/[facility] LABORATORY RDWSD 50.8 (H) 36.0 - [facility] 45.0 [facility] LABORATORY RDWCV 15.4 (H) 11.4 - [facility] 13.8 % [facility] LABORATORY MPV 10.0 7.6 - 12.9 [facility] LABORATORY nRBC % Auto 0.0 % [facility] LABORATORY nRBC Abs Auto 0.000 0.000 - [facility] [address] [facility] x10(3)/[facility] LABORATORY Specimen Anatomical Collection Method Collection Time Receive d Time (Source) Location / / Volume Laterality Blood specimen 07/10/2017 4:28 AM 017 4:36 (specimen) EST AM EST Resulting Agency Comment Spec In Lab Yuan Webber MD HEMATOLOGY ORDERABLES Performing Organization Address City/State/ZIP Code Phon e Number [address] (ABNORMAL) Basic Metabolic Panel (non-fasting) (07/10/2017 4:28 AM EST) P athologist Signature Glucose Lvl 178 65 - 199 [facility] mg/dL [facility] LABORATORY [...] [facility] LABORATORY Calcium 7.4 (L) 8.5 - 10.5 mg/dL [facility] LABORATORY Estimated GFR 60 >=60 [facility] LABORATORY Comment: The reported eGFR should be multiplied b y 1.2 for patients. The MDRD is not an appropriate measure o f renal function for patients with body mass extremes or in patients with acute kidney failure. http://HelpAround[employer]/DHnkdep http://BackTrack/DHMCnkf Specimen Anatomical Collection Method Collection Time Receive d Time (Source) Location / / Volume Laterality Blood specimen 07/10/2017 4:28 AM 017 4:36 (specimen) EST AM EST Resulting Agency Comment Spec In Lab Yuan Webber MD CHEMISTRY ORDERABLES Performing Organization Address City/State/[place] [address] POCT Glucose (07/10/2017 4:26 AM EST) P athologist Signature POC Glucose 176 65 - 199 [facility] mg/dL [facility] LABORATORY [...] Address City/State/ZIP Code Phon e Number [address] (ABNORMAL) POCT Glucose (07/10/2017 3:06 AM EST) P athologist Signature POC Glucose 204 (H) 65 - 199 [facility] mg/dL [facility] [...] [facility]/Z[place] [address] (ABNORMAL) POCT Glucose (07/10/2017 2:10 AM EST) P athologist Signature POC Glucose 203 (H) 65 - 199 [facility] mg/dL [facility] [...] Address City/State/ZIP Code Phon e Number [address] POCT Glucose (07/10/2017 1:09 AM EST) P athologist Signature POC Glucose 196 65 - 199 [facility] mg/dL [facility] [...] Address City/State/ZIP Code Phon e Number [address] POCT Glucose (07/10/2017 12:10 AM EST) P athologist Signature POC Glucose 173 65 - 199 [place] ZHAORYAN mg/dL [facility] [...] Address City/State/[place] [address] POCT Glucose (07/09/2017 11:01 [...] Address City/State/[place] [address] POCT Glucose (07/09/2017 10:05 PM EST) P athologist Signature POC Glucose 144 65 - 199 [facility] mg/dL [facility] [...] Address City/State/ZIP Code Phon e Number [address] POCT Glucose (07/09/2017 9:31 PM EST) athologist Signature POC Glucose 121 65 - 199 [place] ZHAORYAN mg/dL [facility] [...] [facility]/ZIP Code Phon e Number [address] POCT Glucose (07/09/2017 9:03 [...] [facility]/ZIP Code Phon e Number [address] POCT Glucose (07/09/2017 8:09 [...] Address City/State/ZIP Code Phon e Number [address] POCT Glucose (07/09/2017 5:40 PM EST) athologist Signature POC Glucose 155 65 - 199 [place] ZHAORYAN mg/dL [facility] [...] Address City/State/ZIP Code Phon e Number [address] POCT Glucose (07/09/2017 4:24 [...] Address City/State/ZIP Code Phon e Number [address] POCT Glucose (07/09/2017 3:19 PM EST) athologist Signature POC Glucose 166 65 - 199 [facility] mg/dL [facility] [...] Address City/State/Z[place] [address] POCT Glucose (07/09/2017 2:26 PM EST) athologist Signature POC Glucose 179 65 - 199 [place] ZHAORYAN mg/dL [facility] [...] [facility]/Z[place] [address] (ABNORMAL) POCT Glucose (07/09/2017 [...] [facility]/Z[place] [address] POCT Glucose (07/09/2017 12:20 [...] Address City/State/ZIP Code Phon e Number [address] POCT Glucose (07/09/2017 11:24 AM EST) P athologist Signature POC Glucose 156 65 - 199 [place] mg/dL [facility] [...] Address City/State/ZIP Code Phon e Number [address] POCT Glucose (07/09/2017 11:11 AM EST) P athologist Signature POC Glucose 172 65 - 199 [place] mg/dL UNIVERSITY [...] City/State/[place] [address] [facility] [address] Drive POCT Glucose (07/09/2017 [...] Organization Address City/State/ZIP Code Phon [place] [address] POCT Glucose (07/09/2017 8:02 AM EST) P athologist Signature POC Glucose 178 65 - 199 [facility] mg/dL [facility] LABORATORY [...] Address City/State/[place] [address] (ABNORMAL) BLOOD GAS 2 ARTERIAL (07/09/2017 5:37 AM EST) Analysis Performed At Patho logist Time Signature pH Art 7.36 7.35 - [facility] 7.45 [facility] LABORATORY pCO2 Art 38 35 - 45 [facility] LABORATORY pO2 Art 79 (L) 85 - 104 [facility] LABORATORY HCO3 Art 20.9 20.0 - [facility] 26.[address] [facility] mmol/L [facility] LABORATORY BE Art -4.6 (L) -3.0 - 3.0 [facility] mmol/L [facility] LABORATORY Hgb Blood Gas 10.5 (L) 13.7 - [facility] 16.5 gm/dL [facility] LABORATORY O2HB Art 93.8 (L) 94.0 - [facility] 97.0 % [facility] LABORATORY COHB Art 0.3 % [facility] LABORATORY FIO2 Art 40 % [facility] LABORATORY PF Ratio Art 198 [facility] LABORATORY Specimen Anatomical Collection Method Collection Time Receive d Time (Source) Location / / Volume Laterality Blood specimen 07/09/2017 5:37 AM 017 5:37 (specimen) EST AM EST Yuan Webber MD CHEMISTRY ORDERABLES Performing Organization Address City/[facility]/[place] [address] POCT Glucose (07/09/2017 3:27 AM EST) P athologist Signature POC Glucose 192 65 - 199 [facility] mg/dL [facility] LABORATORY [...] [facility]/[place] [address] (ABNORMAL) Basic Metabolic Panel (non-fasting) (07/09/2017 2:30 AM EST) P athologist Signature Glucose Lvl 179 65 - 199 [facility] mg/dL [facility] LABORATORY Comment: Diabetes: >=200 mg/dL plus symp toms BUN 17 10 - 20 mg/dL [facility] LABORATORY Creatinine 1.34 0.80 - [...] [facility] LAB[facility] Calcium 7.1 (L) 8.5 - 10.5 mg/dL [facility] LABORATORY Comment: result rechecked-JLK Estimated GFR 53 (L) >=60 [facility] LABORATORY Comment: The reported eGFR should be multiplied b y 1.2 for patients. The MDRD is not an appropriate measure o f renal function for patients with body mass extremes or in patients with acute kidney failure. http://BackTrack/DHnkdep http://BackTrack/DHMCnkf Specimen Anatomical Collection Method Collection Time Receive d Time (Source) Location / / Volume Laterality Blood specimen Venous Draw / 07/09/2017 2:30 AM 2016 2:42 (specimen) Unknown EST AM EST Resulting Agency Comment Spec In Lab Yuan Webber MD CHEMISTRY ORDERABLES Performing Organization Address City/State/[place] [address] (ABNORMAL) Potassium (07/09/2017 2:30 AM EST) P athologist Signature Potassium 5.1 (H) 3.5 - 5.0 [facility] mmol/L [facility] LABORATORY [...] City/State/[place] [address] (ABNORMAL) Hemogram (07/09/2017 2:30 AM EST) Analysis Performed At Patho logist Time Signature WBC 12.5 (H) 4.0 - 9.5 [facility] x10(3)/[facility] LABORATORY RBC 3.38 (L) 4.58 - [facility] 5.[address] [facility] x10(6)/[facility] LABORATORY Hemoglobin 10.1 (L) 13.7 - [facility] 16.5 gm/dL [facility] LABORATORY Hematocrit 30.3 (L) 40.5 - [facility] 48.5 % [facility] LABORATORY MCV 89.6 82.9 - [facility] 93.1 [facility] LABORATORY MCH 29.9 27.5 - [place] R[place] 32.1 pg [facility] LABORATORY MCHC 33.3 32.0 - [facility] 35.7 gm/dL [facility] LABORATORY Platelets 127 (L) 145 - 357 [facility] x10(3)/[facility] LABORATORY RDWSD 49.3 (H) 36.0 - [place] RYAN 45.0 [facility] LABORATORY RDWCV 15.2 (H) 11.4 - [facility] 13.8 % [facility] LABORATORY MPV 9.9 7.6 - 12.9 [facility] LABORATORY nRBC % Auto 0.0 % [facility] LABORATORY nRBC Abs Auto 0.000 0.000 - [place] RY[place] [address] [facility] x10(3)/[facility] LABORATORY Specimen Anatomical Collection Method Collection Time Receive d Time (Source) Location / / Volume Laterality Blood specimen 07/09/2017 2:30 AM 017 2:41 (specimen) EST AM EST Resulting Agency Comment Spec In Lab Yuan Webber MD HEMATOLOGY ORDERABLES Performing Organization Address City/[facility]/ZIP Code Phon e Number [address] POCT Glucose (07/09/2017 2:10 AM EST) P athologist Signature POC Glucose 169 65 - 199 [place] mg/dL [facility] [...] [facility]/ZIP [place] [address] POCT Glucose (07/09/2017 1:01 AM EST) P athologist Signature POC Glucose 173 65 - 199 [place]HA[place] mg/dL [facility] [...] [facility]/ZIP Code Phon e Number [address] Blood culture (07/09/2017 12:40 AM EST) [facility] Method Time Signature Blood Culture No growth KATALINA VILLAREALCOCK at 5 days. [facility] [...] Address City/State/[place] [address] Blood culture (07/09/2017 12:30 AM EST) [facility] Method Time Signature Blood Culture No growth [...] LES Performing Organization Address City/[facility]/[place] [address] (ABNORMAL) Urinalysis Microscopic Exam (07/09/2017 12:05 AM EST) Analysis Performed At Patho logist Time Signature RBC UA 32 (H) 0 - 3 /HPF [facility]ATORY WBC UA 5 (H) 0 - 3 /HPF [facility] Squam Epith UA <1 <=4 /HPF [facility] Hyaline Cast 17 (H) 0 - 2 /LPF [facility] Gran Cast UA 1 (H) <=0 /LPF [facility] Uric Ac Bianca Rare (A) None /HPF [facility] Specimen (Source) Anatomical Collection Method Collection Time Re ceived Time Location / / Volume Laterality Urine specimen 07/09/2017 12:05 07/09/ 7 obtained via AM EST 12:39 AM EST indwelling urinary catheter (specimen) Resulting Agency Comment Spec In Lab Yuan Webber MD URINE ORDERABLES Performing Organization Address City/State/[place] [address] (ABNORMAL) Urinalysis with reflex Culture (07/09/2017 12:05 AM EST) [facility] Method Time Signature Glucose UA Negative Negative KATALINA DAVIS mg/dL [facility] LABORATORY Protein UA 30 (A) Negative [facility] LABOR[facility]ORY Bilirubin UA Negative Negative [facility] mg/dL [facility] LABORATORY [...] [facility] Nitrite UA Negative Negative [facility] LAB[facility] Leukocytes UA Negative Negative [facility] LABORATORY Appearance UA Hazy (A) Clear [facility] LABORATORY Spec [place] UA 1.025 1.002 - 1.030 [facility] LABORATORY Color UA Yellow Yellow [facility] LABORATORY Culture Reflexed No [facility]/[place] [address] POCT Glucose (07/08/2017 11:01 PM EST) P athologist Signature POC Glucose 191 65 - 199 [facility] mg/dL [facility] LABORATORY [...] Organization Address City/State/ZIP Code Phon [place] [address] POCT Glucose (07/08/2017 10:04 PM EST) athologist Signature POC Glucose 198 65 - 199 [facility] mg/dL [facility] LABORATORY [...] Address City/State/ZIP Code Phon e Number [address] Prepare Albumin 5% in [...] Address City/State/ZIP Code Phon e Number [address] POCT Glucose (07/08/2017 8:28 [...] Address City/State/[place] [address] (ABNORMAL) POCT Glucose (07/08/2017 7:13 PM EST) P athologist Signature POC Glucose 220 (H) 65 - 199 [facility] mg/dL [facility] LABORATORY Comment: Supplemental ranges: <140 mg/dL before meals <180 mg/dL all other times of the day Specimen Anatomical Collection Method Collection Time Receive d Time (Source) Location / / Volume Laterality Blood specimen 07/08/2017 7:13 PM 017 7:13 (specimen) EST PM EST Yaun Webber MD POINT OF CARE TEST ORDERABLE S Performing Organization Address City/State/ZIP Code Phon e Number [address] POCT Glucose (07/08/2017 5:04 PM EST) athologist Signature POC Glucose 147 65 - 199 [facility] mg/dL [facility] LABORATORY [...] Address City/State/[place] [address] (ABNORMAL) BLOOD GAS 2 ARTERIAL (07/08/2017 4:13 PM EST) Analysis Performed At Patho logist Time Signature pH Art 7.38 7.35 - [facility] 7.45 [facility] LABORATORY pCO2 Art 36 35 - 45 [facility] LABORATORY pO2 Art 91 85 - 104 [facility] LABORATORY HCO3 Art 20.9 20.0 - [facility] 26.[address] [facility] mmol/L [facility] LABORATORY BE Art -4.2 (L) -3.0 - 3.0 [facility] mmol/L [facility] LABORATORY Hgb Blood Gas 11.7 (L) 13.7 - [facility] 16.5 gm/dL [facility] LABORATORY O2HB Art 95.1 94.0 - [facility] 97.0 % [facility] LABORATORY COHB Art 0.6 % [facility] FIO2 Art 40 % [facility] LABORATORY PF Ratio Art 228 [facility] LABORATORY Specimen Anatomical Collection Method Collection Time Receive d Time (Source) Location / / Volume Laterality Blood specimen 07/08/2017 4:13 PM 017 4:13 (specimen) EST PM EST Yuan Webber MD CHEMISTRY ORDERABLES Performing Organization Address City/State/[place] [address] POCT Glucose (07/08/2017 4:01 PM EST) P athologist Signature POC Glucose 148 65 - 199 [facility] mg/dL [facility] LABORATORY [...] Address City/State/ZIP Code Phon e Number [address] POCT Glucose (07/08/2017 3:21 PM EST) athologist Signature POC Glucose 118 65 - 199 KATALINA ZHAORYAN mg/dL [facility] [...] Address City/State/ZIP Code Phon e Number [address] POCT Glucose (07/08/2017 2:01 PM EST) athologist Signature POC Glucose 129 65 - 199 KATALINA ZHAORYAN mg/dL [facility] [...] Address City/State/[place] [address] POCT Glucose (07/08/2017 11:53 AM EST) athologist Signature POC Glucose 156 65 - 199 KATALINA ZHAORYAN mg/dL [facility] [...] Address City/State/ZIP Code Phon e Number [address] POCT Glucose (07/08/2017 11:04 AM EST) athologist Signature POC Glucose 181 65 - 199 [facility] mg/dL [facility] LABORATORY [...] [facility]/[place] [address] (ABNORMAL) POCT Glucose (07/08/2017 9:24 AM EST) athologist Signature POC Glucose 203 (H) 65 - 199 [facility] mg/dL [facility] LABORATORY [...] Address City/State/[place] [address] APTT (07/08/2017 8:40 AM [...] [facility]/[place] [address] (ABNORMAL) Prothrombin Time (07/08/2017 [...] [facility]/[place] [address] (ABNORMAL) POCT Glucose (07/08/2017 7:38 AM EST) P athologist Signature POC Glucose 232 (H) 65 - 199 [facility] mg/dL [facility] LABORATORY [...] [facility]/[place] [address] (ABNORMAL) POCT Glucose (07/08/2017 7:07 AM EST) athologist Signature POC Glucose 234 (H) 65 - 199 [facility] mg/dL [facility] LABORATORY [...] Address City/State/[place] [address] (ABNORMAL) POCT Glucose (07/08/2017 6:04 AM EST) athologist Signature POC Glucose 225 (H) 65 - 199 [facility] mg/dL [facility] LABORATORY [...] Address City/State/[place] [address] (ABNORMAL) POCT Glucose (07/08/2017 5:31 AM EST) athologist Signature POC Glucose 216 (H) 65 - 199 [facility] mg/dL [facility] LABORATORY [...] Address City/State/[place] [address] (ABNORMAL) POCT Glucose (07/08/2017 4:52 AM EST) P athologist Signature POC Glucose 257 (H) 65 - 199 [facility] mg/dL [facility] LABORATORY [...] City/State/[place] [address] (ABNORMAL) BLOOD GAS 2 ARTERIAL (07/08/2017 4:04 AM EST) Analysis Performed At Patho logist Time Signature pH Art 7.30 (L) 7.35 - [facility] 7.45 [facility] LABORATORY pCO2 Art 41 35 - 45 [facility] LABORATORY pO2 Art 83 (L) 85 - 104 [facility] LABORATORY HCO3 Art 19.6 (L) 20.0 - [facility] 26.[address] [facility] mmol/[facility] LABORATORY BE Art -6.8 (L) -3.0 - 3.0 [facility] mmol/L [facility] LABORATORY Hgb Blood Gas 12.2 (L) 13.7 - [facility] 16.5 gm/dL [facility] LABORATORY O2HB Art 93.5 (L) 94.0 - [facility] 97.0 % [facility] LABORATORY COHB Art 0.4 % [...] [facility] Comment: Noted by instrument specialist. FIO2 Art 40 % [facility] LABORATORY PF Ratio Art 208 [facility] LABORATORY Specimen Anatomical Collection Method Collection Time Receive d Time (Source) Location / / Volume Laterality Blood specimen 07/08/2017 4:04 AM 017 4:04 (specimen) EST AM EST Daphne Shahid MD CHEMISTRY ORDERABLES Performing Organization Address City/[facility]/ZIP Code Phon e Number [address] Scan, Peripheral Blood (07/08/2017 [...] Address City/State/ZIP Code Phon e Number [address] (ABNORMAL) Differential, Automated (07/08/2017 4:00 AM EST) Patholo gist Method Time Signature Neutrophils % 85.4 % [facility] LABORATORY Neutr Abs (ANC) 16.07 (H) 1.70 - [facility] [address] [facility] x10(3)/[facility] L LABORATORY Lymphocytes % 3.5 % [facility] LABORATORY Lymphocytes Abs 0.6 (L) 0.9 - 3.2 [facility] x10(3)/[facility] LABORATORY Monocytes % 10.4 % [facility] LABORATORY Monocyte Abs 2.0 (H) 0.3 - 0.9 [facility] x10(3)/[facility] LABORATORY Eosinophils % 0.0 % [facility] LABORATORY Eosinophils Abs 0.0 0.0 - 0.4 [facility] x10(3)/[facility] LABORATORY Basophils % 0.1 % [facility] LABORATORY Basophils Abs 0.0 0.0 - 0.1 [facility] x10(3)/[facility] LABORATORY Immature Gran % 0.60 [...] Gran Abs 0.12 (H) 0.00 - 0.04 x10(3)/[facility] LABORATORY Specimen Anatomical Collection Method Collection Time Receive d Time (Source) Location / / Volume Laterality Blood specimen 07/08/2017 4:00 AM 017 4:09 (specimen) EST AM EST Resulting Agency Comment Spec In Lab Yuan Webber MD HEMATOLOGY ORDERABLES Performing Organization Address City/State/[place] [address] (ABNORMAL) Hemogram (07/08/2017 4:00 AM EST) Analysis Performed At Patho logist Time Signature WBC 18.8 (H) 4.0 - 9.5 [facility] x10(3)/[facility] LABORATORY RBC 4.00 (L) 4.58 - [facility] 5.[address] [facility] x10(6)/[facility] LABORATORY Hemoglobin 11.9 (L) 13.7 - [facility] 16.5 gm/dL [facility] LABORATORY Hematocrit 35.9 (L) 40.5 - KATALINA DAVIS 48.5 % [facility] LABORATORY MCV 89.8 82.9 - [facility] 93.1 [facility] LABORATORY MCH 29.8 27.5 - KATALINA OLIVASCK 32.1 pg [facility] LABORATORY MCHC 33.1 32.0 - KATALINA DAVIS 35.7 gm/dL [facility] LABORATORY Platelets 232 145 - 357 [facility] x10(3)/[facility] LABORATORY RDWSD 47.6 (H) 36.0 - KATALINA DAVIS 45.0 [facility] LABORATORY RDWCV 14.5 (H) 11.4 - [facility] 13.8 % [facility] LABORATORY MPV 9.5 7.6 - 12.9 [facility] LABORATORY nRBC % Auto 0.0 % [facility] LABORATORY nRBC Abs Auto 0.000 0.000 - [facility] [address] [facility] x10(3)/[facility] LABORATORY Specimen Anatomical Collection Method Collection Time Receive d Time (Source) Location / / Volume Laterality Blood specimen 07/08/2017 4:00 AM 017 4:09 (specimen) EST AM EST Resulting Agency Comment Spec In Lab Yuan Webber MD HEMATOLOGY ORDERABLES Performing Organization Address City/State/ZIP Code Phon e Number [place] [id number] [address]OS[address] Drive (ABNORMAL) Electrolytes panel (07/08/2017 4:00 AM EST) P athologist Signature Sodium 139 135 - 145 [facility] mmol/L [facility] LABORATORY Potassium 4.7 3.5 - 5.0 [facility] mmol/L [facility] LABORATORY [...] CO2 21 (L) 22 - 31 mmol/L [facility] Anion Gap 14 5 - 15 mmol/L KATALINA RYAN [facility] LABORATORY Specimen Anatomical Collection Method Collection Time Receive d Time (Source) Location / / Volume Laterality Blood specimen 07/08/2017 4:00 AM 017 4:10 (specimen) EST AM EST Resulting Agency Comment Spec In Lab Yuan Webber MD CHEMISTRY ORDERABLES Performing Organization Address City/State/[place] [address] (ABNORMAL) Cardiac Enzymes (LEB/CGP) (07/08/2017 4:00 AM EST) P athologist Signature Troponin-T 1.88 (H) 0.00 - [facility] 0.00 ng/mL [facility] [...] additional sample may be indicated. Reference: Third [place] Definition of Myocardial Infarction. Journal of the [place] [employer] 2012;60:1581-98 CK, Total 413 [...] Address City/State/ZIP Code Phon e Number [address] (ABNORMAL) Glucose, fasting (07/08/2017 4:00 AM EST) P athologist Signature Glucose 287 (H) 65 - 99 [facility] Fasting mg/dL [facility] [...] of Diabetes Mellitus, Position Statement from the [place] [employer]. ??Diabete s Care, Volume 33, Supplement 1, Jul 2009 Specimen Anatomical Collection Method Collection Time Receive d Time (Source) Location / / Volume Laterality Blood specimen 07/08/2017 4:00 AM 017 4:09 (specimen) EST AM EST Resulting Agency Comment Spec In Lab Yuan Webber MD CHEMISTRY ORDERABLES Performing Organization Address City/[facility]/[place] [address] (ABNORMAL) Creatinine (07/08/2017 4:00 AM EST) Analysis Performed At Patho logist Time Signature Creatinine 1.55 (H) 0.80 - [facility] 1.50 mg/dL [facility] LABORATORY Estimated GFR 44 (L) >=60 [facility] LABORATORY Comment: The reported eGFR should be multiplied b y 1.2 for patients. The MDRD is not an appropriate measure o f renal function for patients with body mass extremes or in patients with acute kidney failure. http://HelpAround[employer]/DHadelitakdep http://HelpAround.[employer]/DHMCnkf Specimen Anatomical Collection Method Collection Time Receive d Time (Source) Location / / Volume Laterality Blood specimen 07/08/2017 4:00 AM 017 4:09 (specimen) EST AM EST Resulting Agency Comment Spec In Lab Yuan Webber MD CHEMISTRY ORDERABLES Performing Organization Address City/[facility]/ZIP Code Phon e Number [address] BUN (07/08/2017 4:00 AM [...] [facility]/[place] [address] (ABNORMAL) POCT Glucose (07/08/2017 3:00 AM EST) athologist Signature POC Glucose 273 (H) 65 - 199 [facility] mg/dL [facility] LABORATORY [...] [facility]/ZIP Code Phon e Number [address] (ABNORMAL) POCT Glucose (07/08/2017 1:57 AM EST) P athologist Signature POC Glucose 288 (H) 65 - 199 [facility] mg/dL [facility] LABORATORY [...] [facility]/[place] [address] (ABNORMAL) POCT Glucose (07/08/2017 1:01 AM EST) athologist Signature POC Glucose 315 (H) 65 - 199 [facility] mg/dL [facility] LABORATORY [...] [facility]/[place] [address] (ABNORMAL) BLOOD GAS 2 ARTERIAL (07/08/2017 12:09 AM EST) athologist Signature pH Art 7.26 7.35 - [facility] (Critical) 7.45 [facility] LABORATORY Comment: Noted by instrument specialist. pCO2 Art 41 35 - 45 mmHg [facility] LABORATORY pO2 Art 96 85 - 104 mmHg [facility] LABORATORY HCO3 Art 17.7 (L) 20.0 - 26.0 mmol/L [facility] LABORATORY BE Art -9.4 (L) -3.0 - 3.0 mmol/L [facility] LABORATORY Hgb Blood Gas 12.4 (L) 13.7 - 16.5 gm/dL [facility] LABORATORY O2HB Art 94.7 94.0 - 97.0 % [facility] LABORATORY COHB Art 0.2 % [facility] Comment: Noted by instrument specialist. FIO2 Art 40 % [facility] [...] City/State/[place] [address] (ABNORMAL) POCT Glucose (07/07/2017 10:56 PM EST) P athologist Signature POC Glucose 292 (H) 65 - 199 [facility] mg/dL [facility] LABORATORY [...] City/State/[place] [address] (ABNORMAL) BLOOD GAS 2 ARTERIAL (07/07/2017 10:04 PM EST) athologist Signature pH Art 7.22 7.35 - [facility] (Critical) 7.45 [facility] LABORATORY Comment: Noted by instrument specialist. pCO2 Art 42 35 - 45 mmHg [facility] LABORATORY pO2 Art 94 85 - 104 mmHg [facility] LABORATORY HCO3 Art 16.9 (L) 20.0 - 26.0 mmol/L [facility] LABORATORY BE Art -10.7 (L) -3.0 - 3.0 mmol/L [facility] LABORATORY Hgb Blood Gas 13.0 (L) 13.7 - 16.5 gm/dL [facility] LABORATORY O2HB Art 93.8 (L) 94.0 - 97.0 % [facility] LABORATORY COHB Art 0.7 % [facility] Comment: Noted by instrument specialist. FIO2 Art 40 % [facility] LABORATORY PF Ratio Art 235 [facility] LABORATORY Specimen Anatomical Collection Method Collection Time Receive d Time (Source) Location / / Volume Laterality Blood specimen 07/07/2017 10:04 7 (specimen) PM EST 10:04 PM EST Daphne Shahid MD CHEMISTRY ORDERABLES Performing Organization Address City/[facility]/ZIP Code Phon e Number [address] (ABNORMAL) Hemoglobin (07/07/2017 10:00 PM EST) P athologist Signature Hemoglobin 12.8 (L) 13.7 - [facility] 16.5 gm/dL [facility] LABORATORY Specimen Anatomical Collection Method Collection Time Receive d Time (Source) Location / / Volume Laterality Blood specimen 07/07/2017 10:00 7 (specimen) PM EST 10:13 PM EST Resulting Agency Comment Spec In Lab Yuan Webber MD HEMATOLOGY ORDERABLES Performing Organization Address City/[facility]/[place] [address] (ABNORMAL) Potassium (07/07/2017 10:00 PM EST) P athologist Signature Potassium 3.4 (L) 3.5 - 5.0 [facility] mmol/L [facility] LABORATORY [...] Address City/State/[place] [address] (ABNORMAL) POCT Glucose (07/07/2017 8:49 PM EST) P athologist Signature POC Glucose 241 (H) 65 - 199 [facility] mg/dL [facility] LABORATORY [...] [facility]/[place] [address] Prepare Albumin 5% in [...] [facility]/[place] [address] EKG 12 Lead (07/07/2017 7:17 PM EST) Component Value Ref Range Test Analysis Performed Pathologis t Method Time At Signature Ventricular rate 75 BPM MUSE SYSTEM Atrial Rate 75 BPM MUSE SYSTEM P-R Interval 168 ms MUSE SYSTEM QRS Duration 104 ms MUSE SYSTEM Q-T Interval 462 ms MUSE SYSTEM QTC Calculated 515 ms MUSE SYSTEM (Bezet) Calculated P [place] 52 degrees MUSE SYSTEM Calculated R [place] -40 degrees MUSE SYSTEM Calculated T [place] 39 degrees MUSE SYSTEM INTERPRETATION Normal sinus [...] pH Art 7.21 7.35 - [facility] (Critical) 7.45 [facility] LABORATORY Comment: Noted by instrument specialist. pCO2 Art 50 (H) 35 - 45 mmHg [facility] LABORATORY pO2 Art 238 (H) 85 - 104 mmHg [facility] LABORATORY HCO3 Art 19.8 (L) 20.0 - 26.0 mmol/L [facility] LABORATORY BE Art -8.1 (L) -3.0 - 3.0 mmol/L [facility] LABORATORY Hgb Blood Gas 12.8 (L) 13.7 - 16.5 gm/dL [facility]ORATORY O2HB Art 97.5 (H) 94.0 - 97.0 % [facility] LABORATORY COHB Art 0.5 % [facility] Comment: Noted by instrument specialist. Please note: Patients with WBC [...] [facility] Comment: Noted by instrument specialist. FIO2 Art 100 % [facility] LABORATORY PF Ratio Art 238 [facility] LABORATORY Specimen Anatomical Collection Method Collection Time Receive d Time (Source) Location / / Volume Laterality Blood specimen 07/07/2017 6:57 PM 017 6:57 (specimen) EST PM EST Daphne Shahid MD CHEMISTRY ORDERABLES Performing Organization Address City/State/[place] [address] (ABNORMAL) BLOOD GAS 2 ARTERIAL (07/07/2017 5:31 PM EST) P athologist Signature pH Art 7.29 7.35 - [facility] (Critical) 7.45 [facility] LABORATORY Comment: Noted by instrument specialist. pCO2 Art 48 (H) 35 - 45 mmHg [facility] LABORATORY pO2 Art 137 (H) 85 - 104 mmHg [facility] LABORATORY HCO3 Art 22.4 20.0 - 26.0 mmol/L [facility] LABORATORY BE Art -4.3 (L) -3.0 - 3.0 mmol/L [facility] LABORATORY Hgb Blood Gas 10.0 (L) 13.7 - 16.5 gm/dL [facility] O2HB Art 97.3 (H) 94.0 - 97.0 % [facility] LABORATORY COHB Art 0.3 [...] [facility]/ZIP Code Phon e Number [address] Fibrinogen (07/07/2017 5:30 PM EST) P athologist Signature Fibrinogen 224 180 - 510 [facility] mg/dL [facility] LABORATORY [...] City/[facility]/ZIP [facility] Phon e Number [address] APTT (07/07/2017 5:30 PM [...] Address City/[facility] [facility] [place] [address] (ABNORMAL) Prothrombin Time (07/07/2017 [...] Address City/[facility] [place] [address] (ABNORMAL) Hemogram (07/07/2017 5:30 PM EST) P athologist Signature WBC 19.6 (H) 4.0 - 9.5 [facility] x10(3)/[facility] LABORATORY RBC 3.08 (L) 4.58 - [facility] 5.54 [facility] x10(6)/[facility] LABORATORY Hemoglobin 9.2 (L) 13.7 - [facility] 16.5 gm/dL [facility] LABORATORY Hematocrit 28.0 (L) 40.5 - [facility] 48.5 % [facility] [...] HOSPITAL LABORATORY Platelets 155 145 - 357 x10(3)/[facility] LABORATORY RDWSD 46.5 (H) 36.0 - 45.0 [facility] LABORATORY RDWCV 14.1 (H) 11.4 - 13.8 % [facility] LABORATORY MPV 9.5 7.6 - 12.9 [facility] LABORATORY nRBC % Auto 0.0 % [facility] LABORATORY nRBC Abs Auto 0.000 0.000 - 0.000 x10(3)/[facility] LABORATORY Specimen Anatomical Collection Method Collection Time Receive d Time (Source) Location / / Volume Laterality Blood specimen 07/07/2017 5:30 PM 017 5:34 (specimen) EST PM EST Resulting Agency Comment Spec In Lab Yifan Perez MD HEMATOLOGY ORDERABLES Performing Organization Address City/State/[place] [address] Prepare Platelets, Apheresis (07/07/2017 5:00 PM EST) P athologist Signature Dispensed? Yes [facility] LABORATORY Specimen Anatomical Collection Method Collection Time Receive d Time (Source) Location / / Volume Laterality Blood specimen 07/07/2017 5:00 PM 017 4:58 (specimen) EST PM EST Daphne Shahid MD BLOOD BANK ORDERABLES Performing Organization Address City/State/[place] [address] Platelet count (07/07/2017 4:55 PM EST) P athologist Signature Platelets 177 145 - 357 KATALINA DAVIS x10(3)/[facility] LABORATORY Plat Immature 1.5 0.0 - 7.4 [place] DAVIS % % [facility] LABORATORY Comment: Limitation of the Immature Platelet Frac tion (IPF)-May be less reliable when the platelet count is less than 05a503/u L due to statistical imprecision. The IPF [...] in a decreased state of production. References: [employer] The Clinical Value of the Immature Platelet Fraction (IPF) in Cell Recovery Document Number 10-1143 12/2010 [employer] The Role of the Imm ature [...] City/State/[place] [address] (ABNORMAL) Hemoglobin and Hematocrit, blood (07/07/2017 4:55 PM EST) P athologist Signature Hemoglobin 9.1 (L) 13.7 - 16.5 KATLAINA DAVIS gm/dL [facility] LABORATORY [...] City/State/[place] [address] (ABNORMAL) BLOOD GAS 2 ARTERIAL (07/07/2017 4:38 PM EST) Analysis Performed At Patho logist Time Signature pH Art 7.37 7.35 - [facility] 7.45 [facility] LABORATORY pCO2 Art 44 35 - 45 [facility] mmHg [facility] LABORATORY pO2 Art 322 (H) 85 - 104 [facility] LABORATORY HCO3 Art 24.9 20.0 - [facility] 26.[address] [facility] mmol/L [facility] LABORATORY BE Art -0.4 -3.0 - 3.0 [facility] mmol/L [facility] LABORATORY Hgb Blood Gas 10.1 (L) 13.7 - [facility] 16.5 gm/dL [facility] LABORATORY O2HB Art 98.7 (H) 94.0 - [facility] 97.0 % [facility] LABORATORY COHB Art 0.1 % [facility] Comment: Noted by instrument specialist. Note: ??Total bilirubin higher than [...] City/State/[place] [address] (ABNORMAL) BLOOD GAS 2 VENOUS (07/07/2017 4:06 PM EST) Analysis Performed At Patho logist Time Signature pH Cody 7.31 (L) 7.32 - [facility] 7.42 [facility] LABORATORY pCO2 Cody 47 41 - 51 [facility] LABORATORY pO2 Cody 53 (H) 25 - 40 [facility] LABORATORY HCO3 Cody 22.7 mmol/L [facility] LABORATORY BE Cody -3.7 mmol/L [facility] LABORATORY Hgb Blood Gas 10.2 (L) 13.7 - [facility] 16.5 gm/dL [facility] LABORATORY O2HB Cody 81.0 % [facility] Comment: Noted by instrument specialist. Note: ??Total bilirubin higher than [...] [facility] LAB[facility] BGas Source Venous [facility] LABORATORY Specimen Anatomical Collection Method Collection Time Receive d Time (Source) Location / / Volume Laterality Blood specimen 07/07/2017 4:06 PM 017 4:06 (specimen) EST PM EST Daphne Shahid MD CHEMISTRY ORDERABLES Performing Organization Address City/State/[place] [address] (ABNORMAL) BLOOD GAS 2 ARTERIAL (07/07/2017 4:05 PM EST) Analysis Performed At Patho logist Time Signature pH Art 7.36 7.35 - [facility] 7.45 [facility] LABORATORY pCO2 Art 40 35 - 45 [facility] mmHg [facility] LABORATORY pO2 Art 282 (H) 85 - 104 [facility] LABORATORY HCO3 Art 22.1 20.0 - [facility] 26.[address] [facility] mmol/L [facility] LABORATORY BE Art -3.4 (L) -3.0 - 3.0 [facility] mmol/L [facility] LABORATORY Hgb Blood Gas 10.2 (L) 13.7 - [facility] 16.5 gm/dL [facility] LABORATORY O2HB Art 98.4 (H) 94.0 - [facility] 97.0 % [facility] LABORATORY COHB Art 0.3 % [facility] Comment: Noted by instrument specialist. Note: ??Total bilirubin higher than [...] City/State/[place] [address] (ABNORMAL) BLOOD GAS 2 ARTERIAL (07/07/2017 2:29 PM EST) Analysis Performed At Patho logist Time Signature pH Art 7.43 7.35 - [facility] 7.45 [facility] LABORATORY pCO2 Art 36 35 - 45 [facility] LABORATORY pO2 Art 221 (H) 85 - 104 [facility] LABORATORY HCO3 Art 23.2 20.0 - [facility] 26.[address] [facility] mmol/[facility] LABORATORY BE Art -1.2 -3.0 - 3.0 [facility] mmol/L [facility] LABORATORY Hgb Blood Gas 13.9 13.7 - [facility] 16.5 gm/dL [facility] LABORATORY O2HB Art 97.8 (H) 94.0 - [facility] 97.0 % [facility] LABORATORY COHB Art 1.1 % [facility] [...] City/State/[place] [address] Prepare Coag Factors (Non-Hemophilia) (07/07/2017 1:25 PM EST) P athologist Signature Dispensed? Yes [facility] LABORATORY Specimen Anatomical Collection Method Collection Time Receive d Time (Source) Location / / Volume Laterality Blood specimen 07/07/2017 1:25 PM 017 1:21 (specimen) EST PM EST Daphne Shahid MD BLOOD BANK ORDERABLES Performing Organization Address City/State/ZIP Code Phon e Number [address] Prepare RBC (07/07/2017 1:10 PM EST) P athologist Signature Dispensed? Yes [facility] LABORATORY Specimen Anatomical Collection Method Collection Time Receive d Time (Source) Location / / Volume Laterality Blood specimen 07/07/2017 1:10 PM 017 1:05 (specimen) EST PM EST Daphne Shahid MD BLOOD BANK ORDERABLES Performing Organization Address City/State/[place] [address] POCT Glucose (07/07/2017 11:56 AM EST) P athologist Signature POC Glucose 188 65 - 199 [facility] LABORATORY [...] [facility]/ZIP [place] [address] POCT Glucose (07/07/2017 11:05 AM EST) P athologist Signature POC Glucose 168 65 - 199 [facility] mg/dL [facility] LABORATORY [...] Address City/State/Z[place] [address] POCT Glucose (07/07/2017 10:02 AM EST) athologist Signature POC Glucose 191 65 - 199 KATALINA ZHAORYAN mg/dL [facility] [...] Address City/State/ZIP Code Phon e Number [address] POCT Glucose (07/07/2017 7:53 AM EST) athologist Signature POC Glucose 178 65 - 199 [facility] RYAN mg/dL [facility] [...] Address City/State/Z[place] [address] POCT Glucose (07/07/2017 7:03 AM EST) athologist Signature POC Glucose 188 65 - 199 [facility] mg/dL [facility] [...] Address City/State/[place] [address] (ABNORMAL) POCT Glucose (07/07/2017 6:17 AM EST) athologist Signature POC Glucose 207 (H) 65 - 199 [facility] mg/dL [facility] LABORATORY [...] City/State/ZIP Code Phon e Number [place] [id number] [address]OS[address] LAB[address] Differential, Automated (07/07/2017 5:15 AM EST) [facility] Neutrophils % 69.7 % [facility] LABORATORY Neutr Abs (ANC) 5.32 1.70 - [facility] 6.10 [facility] x10(3)/[facility] LABORATORY Lymphocytes % 16.3 % [facility] LABORATORY Lymphocytes Abs 1.2 0.9 - 3.2 [facility] x10(3)/[facility] LABORATORY Monocytes % 10.5 % [facility] LABORATORY Monocyte Abs 0.8 0.3 - 0.9 [facility] x10(3)[facility] LABORATORY Eosinophils % 2.5 % [facility] LABORATORY Eosinophils Abs 0.2 0.0 - 0.4 [facility] x10(3)/[facility] LABORATORY Basophils % 0.7 % [facility] LABORATORY Basophils Abs 0.0 0.0 - 0.1 [facility] x10(3)/[facility] LABORATORY Immature Gran % 0.30 % [...] Abs 0.02 0.00 - 0.04 x10(3)/[facility] LABORATORY Specimen Anatomical Collection Method Collection Time Receive d Time (Source) Location / / Volume Laterality Blood specimen 07/07/2017 5:15 AM 017 5:34 (specimen) EST AM EST Resulting Agency Comment Spec In Lab Daphne Shahid MD HEMATOLOGY ORDERABLES Performing Organization Address City/[facility]/[place] [address] (ABNORMAL) Hemogram (07/07/2017 5:15 AM EST) Analysis Performed At Patho logist Time Signature WBC 7.6 4.0 - 9.5 [facility] x10(3)/[facility] LABORATORY RBC 4.82 4.58 - [facility] 5.[address] [facility] x10(6)/[facility] LABORATORY Hemoglobin 14.4 13.7 - [facility] 16.5 gm/dL [facility] LABORATORY Hematocrit 42.1 40.5 - [facility] 48.5 % [facility] LABORATORY MCV 87.3 82.9 - [facility] 93.1 [facility] LABORATORY MCH 29.9 27.5 - [facility] 32.1 pg [facility] LABORATORY MCHC 34.2 32.0 - [facility] 35.7 gm/dL [facility] LABORATORY Platelets 188 145 - 357 [facility] x10(3)/[facility] LABORATORY RDWSD 45.1 (H) 36.0 - [facility] 45.0 [facility] LABORATORY RDWCV 14.3 (H) 11.4 - [facility] 13.8 % [facility] LABORATORY MPV 9.4 7.6 - 12.9 [facility] LABORATORY nRBC % Auto 0.0 % [facility] LABORATORY nRBC Abs Auto 0.000 0.000 - [facility] 0.[address] [facility] x10(3)/[facility] LABORATORY Specimen Anatomical Collection Method Collection Time Receive d Time (Source) Location / / Volume Laterality Blood specimen 07/07/2017 5:15 AM 017 5:34 (specimen) EST AM EST Resulting Agency Comment Spec In Lab Daphne Shahid MD HEMATOLOGY ORDERABLES Performing Organization Address City/State/[place] [address] (ABNORMAL) APTT (07/07/2017 5:15 [...] [facility]/[place] [address] Magnesium (07/07/2017 5:15 AM EST) athologist Signature Magnesium 0.94 0.69 - 1.07 [facility] mmol/L [facility] LABORATORY Specimen Anatomical Collection Method Collection Time Receive d Time (Source) Location / / Volume Laterality Blood specimen 07/07/2017 5:15 AM 017 5:34 (specimen) EST AM EST Resulting Agency Comment Spec In Lab Daphne Shahid MD CHEMISTRY ORDERABLES Performing Organization Address City/[facility]/[place] [address] (ABNORMAL) Basic Metabolic Panel (non-fasting) (07/07/2017 5:15 AM EST) P athologist Signature Glucose Lvl 203 (H) 65 - 199 [facility] mg/dL [facility] LABORATORY Comment: Diabetes: >=200 mg/dL plus symp toms BUN 15 10 - 20 mg/dL [facility] LABORATORY Creatinine 1.09 0.80 - [...] or in patients with acute kidney failure. [email or web address] [email or web address] Specimen Anatomical Collection Method Collection Time Receive d Time (Source) Location / / Volume Laterality Blood specimen 07/07/2017 5:15 AM 017 5:34 (specimen) EST AM EST Resulting Agency Comment Spec In Lab Daphne Shahid MD CHEMISTRY ORDERABLES Performing Organization Address City/State/[place] [address] (ABNORMAL) Cardiac Enzymes (LEB/CGP) (07/07/2017 5:15 AM EST) P athologist Signature Troponin-T 2.07 (H) 0.00 - [facility] 0.00 ng/mL [facility] [...] additional sample may be indicated. Reference: Third [place] Definition of Myocardial Infarction. Journal of the [place] [employer] 2012;60:1581-98 CK, Total 88 [...] [facility]/ZIP Code Phon e Number [address] POCT Glucose (07/07/2017 5:01 AM EST) athologist Signature POC Glucose 182 65 - 199 [facility] mg/dL [facility] LABORATORY [...] City/[facility]/ZIP [facility] Phon e Number [address] POCT Glucose (07/07/2017 4:08 AM EST) athologist Signature POC Glucose 199 65 - 199 [facility] mg/dL [facility] LABORATORY [...] Address City/State/ZIP Code Phon e Number [address] POCT Glucose (07/07/2017 3:03 AM EST) athologist Signature POC Glucose 188 65 - 199 KATALINA RYAN mg/dL [facility] [...] Address City/State/[place] [address] (ABNORMAL) POCT Glucose (07/07/2017 [...] Address City/State/ZIP Code Phon e Number [address] (ABNORMAL) POCT Glucose (07/07/2017 [...] City/State/[place] [address] XR Chest PA or [...] Glucose 161 65 - 199 [facility] mg/dL [facility] LABORATORY [...] Address City/State/[place] [address] (ABNORMAL) APTT (07/07/2017 12:00 [...] [facility]/[place] [address] POCT Glucose (07/06/2017 9:55 PM EST) athologist Signature POC Glucose 109 65 - 199 [facility] mg/dL [facility] LABORATORY [...] [facility]/Z[place] [address] POCT Glucose (07/06/2017 9:04 PM EST) athologist Signature POC Glucose 120 65 - 199 [facility] mg/dL [facility] [...] [facility]/Z[place] [address] POCT Glucose (07/06/2017 7:45 PM EST) athologist Signature POC Glucose 158 65 - 199 [facility] mg/dL [facility] LABORATORY [...] [facility]/[place] [address] Potassium (07/06/2017 7:40 PM EST) athologist Signature Potassium 3.9 3.5 - 5.0 [facility] mmol/L [facility] LABORATORY [...] [facility]/[place] [address] (ABNORMAL) Cardiac Enzymes (LEB/CGP) (07/06/2017 7:40 PM EST) athologist Signature Troponin-T 2.27 (H) 0.00 - K[place]ALINA OLIVASCK 0.00 ng/mL [facility] [...] additional sample may be indicated. Reference: Third [place] Definition of Myocardial Infarction. Journal of the [place] [employer] 2012;60:1581-98 CK, Total 93 0 - 200 unit/L [facility] LABORATORY Specimen Anatomical Collection Method Collection Time Receive d Time (Source) Location / / Volume Laterality Blood specimen 07/06/2017 7:40 PM 017 7:52 (specimen) EST PM EST Resulting Agency Comment Spec In Lab Daphne Shahid MD CHEMISTRY ORDERABLES Performing Organization Address City/State/[place] [address] (ABNORMAL) POCT Glucose (07/06/2017 7:13 PM EST) athologist Signature POC Glucose 200 (H) 65 - 199 [facility] mg/dL [facility] LABORATORY [...] [facility]/[place] [address] (ABNORMAL) APTT (07/06/2017 6:15 [...] [facility]/[place] [address] (ABNORMAL) POCT Glucose (07/06/2017 6:03 PM EST) athologist Signature POC Glucose 236 (H) 65 - 199 [facility] LABORATORY [...] [facility]/[place] [address] (ABNORMAL) POCT Glucose (07/06/2017 5:01 PM EST) athologist Signature POC Glucose 235 (H) 65 - 199 [facility] mg/dL [facility] [...] Address City/State/[place] [address] (ABNORMAL) POCT Glucose (07/06/2017 [...] Address City/State/[place] [address] POCT Glucose (07/06/2017 2:59 PM EST) athologist Signature POC Glucose 178 65 - 199 KATALINA RYAN mg/dL [facility] [...] Address City/State/[place] [address] (ABNORMAL) Cardiac Enzymes (LEB/CGP) (07/06/2017 2:10 PM EST) athologist Signature Troponin-T 2.34 (H) 0.00 - [facility] 0.00 ng/mL [facility] [...] additional sample may be indicated. Reference: Third [place] Definition of Myocardial Infarction. Journal of the [place] [employer] 2012;60:1581-98 CK, Total 101 0 - 200 unit/L [facility] LABORATORY Specimen Anatomical Collection Method Collection Time Receive d Time (Source) Location / / Volume Laterality Blood specimen 07/06/2017 2:10 PM 017 2:26 (specimen) EST PM EST Resulting Agency Comment Spec In Lab Daphne Shahid MD CHEMISTRY ORDERABLES Performing Organization Address City/State/[place] [address] POCT Glucose (07/06/2017 2:08 PM EST) P athologist Signature POC Glucose 192 65 - 199 [facility] mg/dL [facility] LABORATORY [...] Address City/State/ZIP Code Phon e Number [address] POCT Glucose (07/06/2017 1:04 PM EST) P athologist Signature POC Glucose 162 65 - 199 [facility] mg/dL [facility] LABORATORY [...] [facility]/ZIP Code Phon e Number [address] POCT Glucose (07/06/2017 12:05 PM EST) athologist Signature POC Glucose 196 65 - 199 [facility] mg/dL [facility] LABORATORY [...] Address City/State/[place] [address] EKG 12 Lead (07/06/2017 12:00 PM EST) Component Value Ref Range Test Analysis Performed Pathologis t Method Time At Signature Ventricular rate 91 BPM MUSE SYSTEM Atrial Rate 91 BPM MUSE SYSTEM P-R Interval 140 ms MUSE SYSTEM QRS Duration 94 ms MUSE SYSTEM Q-T Interval 394 ms MUSE SYSTEM QTC Calculated 484 ms MUSE SYSTEM (Bezet) Calculated P [place] 36 degrees MUSE SYSTEM Calculated R [place] -19 degrees MUSE SYSTEM Calculated T [place] 104 degrees MUSE SYSTEM INTERPRETATION Normal sinus rhythm MUSE SYSTEM 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) ST & T wave abnormality, consider lateral ischemia Abnormal ECG When compared with ECG of 05-JUL-2017 20:39, No significant change was found Confirmed by MD Verma Gregory A. ([id number]) on 07/06/2017 5:07:33 PM Specimen Anatomical Collection [...] [facility]/[place] [address] Antibody screen (07/06/2017 12:00 PM EST) [facility] Method Time Signature Ab Screen Negative [facility] LABORATORY Expires at 07/09/2017 [facility] 235 on: [facility] LABORATORY Specimen Anatomical Collection Method Collection Time Receive d Time (Source) Location / / Volume Laterality Blood specimen 07/06/2017 12:00 7 (specimen) PM EST 12:24 PM EST Resulting Agency Comment Spec In Lab Daphne Shahid MD BLOOD BANK ORDERABLES Performing Organization Address City/[facility]/[place] [address] ABO/Rh Typing (07/06/2017 12:00 [...] Address City/State/[place] [address] Prothrombin Time (07/06/2017 11:24 [...] [facility]/[place] [address] (ABNORMAL) APTT (07/06/2017 11:24 [...] Address City/State/[place] [address] POCT Glucose (07/06/2017 11:02 AM EST) athologist Signature POC Glucose 187 65 - 199 [facility] mg/dL [facility] [...] Address City/State/ZIP Code Phon e Number [address] POCT Glucose (07/06/2017 10:18 AM EST) athologist Signature POC Glucose 193 65 - 199 [facility] mg/dL [facility] [...] Address City/State/ZIP Code Phon e Number [address] POCT Glucose (07/06/2017 9:25 [...] Address City/State/[place] [address] (ABNORMAL) Cardiac Enzymes (LEB/CGP) (07/06/2017 8:10 AM EST) athologist Signature Troponin-T 2.26 (H) 0.00 - [facility] 0.00 ng/mL [facility] [...] additional sample may be indicated. Reference: Third [place] Definition of Myocardial Infarction. Journal of the [place] College [employer] 2012;60:1581-98 CK, Total 124 0 - 200 unit/L [facility] Specimen Anatomical Collection Method Collection Time Receive d Time (Source) Location / / Volume Laterality Blood specimen 07/06/2017 8:10 AM 017 8:23 (specimen) EST AM EST Resulting Agency Comment Spec In Lab Daphne Shahid MD CHEMISTRY ORDERABLES Performing Organization Address City/State/[place] [address] Magnesium (07/06/2017 8:10 AM EST) athologist Signature Magnesium 0.84 0.69 - 1.07 [facility] mmol/L [facility] LABORATORY Specimen Anatomical Collection Method Collection Time Receive d Time (Source) Location / / Volume Laterality Blood specimen 07/06/2017 8:10 AM 017 8:21 (specimen) EST AM EST Resulting Agency Comment Spec In Lab Daphne Shahid MD CHEMISTRY ORDERABLES Performing Organization Address City/[facility]/[place] [address] (ABNORMAL) Basic Metabolic Panel (non-fasting) (07/06/2017 8:10 AM EST) P athologist Signature Glucose Lvl 199 65 - 199 [facility] mg/dL [facility] LABORATORY Comment: Diabetes: >=200 mg/dL plus symp toms BUN 16 10 - 20 mg/dL [facility]ORY Creatinine 1.04 0.80 - [...] or in patients with acute kidney failure. http://HelpAround.[employer]/DHnkdep http://HelpAround.[employer]/DHMCnkf Specimen Anatomical Collection Method Collection Time Receive d Time (Source) Location / / Volume Laterality Blood specimen 07/06/2017 8:10 AM 017 8:21 (specimen) EST AM EST Resulting Agency Comment Spec In Lab Daphne Shahid MD CHEMISTRY ORDERABLES Performing Organization Address City/[facility]/[place]IP [place] [address] POCT Glucose (07/06/2017 7:34 AM EST) P athologist Signature POC Glucose 198 65 - 199 [facility] mg/dL [facility] LABORATORY [...] Address City/State/ZIP Code Phon e Number [address] POCT Glucose (07/06/2017 7:03 AM EST) athologist Signature POC Glucose 181 65 - 199 [facility] mg/dL [facility] LABORATORY [...] Address City/State/[place] [address] XR Chest PA or [...] 172 65 - 199 [facility] mg/dL [facility] LABORATORY [...] City/State/[place] [address] POCT Glucose (07/06/2017 5:08 AM EST) athologist Signature POC Glucose 154 65 - 199 [facility] mg/dL [facility] LABORATORY [...] Address City/State/ZIP Code Phon e Number [address] POCT Glucose (07/06/2017 4:05 AM EST) athologist Signature POC Glucose 142 65 - 199 [facility] mg/dL [facility] LABORATORY [...] [facility]/ZIP Code Phon e Number [address] POCT Glucose (07/06/2017 3:00 AM EST) athologist Signature POC Glucose 116 65 - 199 [facility] LABORATORY [...] Address City/State/ZIP Code Phon e Number [address] Potassium (07/06/2017 2:20 AM EST) athologist Signature Potassium 3.9 3.5 - 5.0 [facility] mmol/L [facility] LABORATORY [...] City/State/[place] [address] Differential, Automated (07/06/2017 2:20 AM EST) athologist Signature Neutrophils % 72.9 % [facility] Neutr Abs (ANC) 5.53 1.70 - [facility] 6.10 [facility] x10(3)[facility] LABORATORY Lymphocytes % 16.4 % [facility] Lymphocytes Abs 1.2 0.9 - 3.2 [facility] x10(3)/[facility] LABORATORY Monocytes % 9.4 % [facility] Monocyte Abs 0.7 0.3 - 0.9 [facility] x10(3)/[facility] LABORATORY Eosinophils % 0.5 % [facility] Eosinophils Abs 0.0 0.0 - 0.4 [facility] x10(3)[facility] LABORATORY Basophils % 0.4 % [facility] Basophils Abs 0.0 0.0 - 0.1 [facility] x10(3)/[facility] LABORATORY Immature Gran % 0.40 % [facility] Comment: Immature granulocytes(IG's)percentage an d absolute count will include metamyelocytes, myelocytes, and promyelo cytes. Blood smears from CBCs yielding IG's will be scanned manually for concor dance. If this scan disagrees with the automated IG or if promyelocytes are not ed, a manual differential will be performed. Melisa Gran Abs 0.03 0.00 - 0.04 x10(3)/[facility] LABORATORY Specimen Anatomical Collection Method Collection Time Receive d Time (Source) Location / / Volume Laterality Blood specimen 07/06/2017 2:20 AM 017 2:33 (specimen) EST AM EST Resulting Agency Comment Spec In Lab Daphne Shahid MD HEMATOLOGY ORDERABLES Performing Organization Address City/State/[place] [address] (ABNORMAL) Hemogram (07/06/2017 2:20 AM EST) Analysis Performed At Patho logist Time Signature WBC 7.6 4.0 - 9.5 [facility] x10(3)/[facility] LABORATORY RBC 4.52 (L) 4.58 - [facility] [address] [facility] x10(6)/[facility] LABORATORY Hemoglobin 13.4 (L) 13.7 - [facility] 16.5 gm/dL [facility] LABORATORY Hematocrit 39.7 (L) 40.5 - [facility] 48.5 % [facility] LABORATORY MCV 87.8 82.9 - [facility] 93.1 [facility] LABORATORY MCH 29.6 27.5 - [place] 32.1 pg [facility] LABORATORY MCHC 33.8 32.0 - [facility] 35.7 gm/dL [facility] LABORATORY Platelets 189 145 - 357 [facility] x10(3)/[facility] LABORATORY RDWSD 45.6 (H) 36.0 - [facility] 45.0 [facility] LABORATORY RDWCV 14.3 (H) 11.4 - [facility] 13.8 % [facility] LABORATORY MPV 9.1 7.6 - 12.9 [facility] LAB[facility] nRBC % Auto 0.0 % [facility] nRBC Abs Auto 0.000 0.000 - [place] [facility] [address] [facility] x10(3)/[facility] LABORATORY Specimen Anatomical Collection Method Collection Time Receive d Time (Source) Location / / Volume Laterality Blood specimen 07/06/2017 2:20 AM 017 2:33 (specimen) EST AM EST Resulting Agency Comment Spec In Lab Daphne Shahid MD HEMATOLOGY ORDERABLES Performing Organization Address City/State/ZIP Code Phon [place] [address] (ABNORMAL) APTT (07/06/2017 2:20 [...] Address City/State/[place] [address] POCT Glucose (07/06/2017 2:20 AM EST) athologist Signature POC Glucose 115 65 - 199 [facility] mg/dL [facility] LABORATORY [...] Address City/State/[place] [address] (ABNORMAL) Cardiac Enzymes (LEB/CGP) (07/06/2017 2:20 AM EST) athologist Signature Troponin-T 2.13 (H) 0.00 - [facility] 0.00 ng/mL [facility] [...] additional sample may be indicated. Reference: Third [place] Definition of Myocardial Infarction. Journal of the [place] College of Cardiology 2012;60:1581-98 CK, Total 129 0 - 200 unit/L [facility] Specimen Anatomical Collection Method Collection Time Receive d Time (Source) Location / / Volume Laterality Blood specimen 07/06/2017 2:20 AM 017 2:33 (specimen) EST AM EST Resulting Agency Comment Spec In Lab Daphne Shahid MD CHEMISTRY ORDERABLES Performing Organization Address City/State/[place] [address] (ABNORMAL) Hemoglobin A1c (07/06/2017 [...] into estimated average glucose values. ??Diabetes Care 2008:31(8):1881-6210. Specimen Anatomical Collection Method Collection Time Receive d Time (Source) Location / / Volume Laterality Blood specimen 07/06/2017 2:20 AM 017 2:34 (specimen) EST AM EST Resulting Agency Comment Spec In Lab Daphne Shahid MD CHEMISTRY ORDERABLES Performing Organization Address City/State/[place] [address] (ABNORMAL) Lipid Panel (07/06/2017 2:20 AM EST) [facility] Method Time Signature Chol, Total 150 <=239 [...] greater than or equal to 190 mg/dL. [email or web address] Adults aged 40-75 with LDL 70-189 mg/dL should have their 10 year ASCVD risk estimated with the ACC/AHA ASCVD risk es timator http://tools.acc.org/RSQEL-Ctnr-Nwmaysei r/ Statin should be discussed if risk [...] City/State/[place] [address] POCT Glucose (07/06/2017 1:09 AM EST) P athologist Signature POC Glucose 121 65 - 199 [facility] mg/dL [facility] LABORATORY [...] Address City/State/ZIP Code [place] [address] POCT Glucose (07/06/2017 12:06 AM EST) athologist Signature POC Glucose 147 65 - 199 [facility] mg/dL [facility] LABORATORY [...] Address City/State/[place] [address] (ABNORMAL) POCT Glucose (07/05/2017 10:56 PM EST) athologist Signature POC Glucose 200 (H) 65 - 199 [facility] mg/dL [facility] LABORATORY [...] Address City/State/[place] [address] (ABNORMAL) POCT Glucose (07/05/2017 10:05 PM EST) athologist Signature POC Glucose 225 (H) 65 - 199 [facility] mg/dL [facility] LABORATORY [...] Address City/State/[place] [address] (ABNORMAL) POCT Glucose (07/05/2017 [...] City/State/ZIP Code Phon e Number [facility] [address] XR Chest PA or [...] 474 ms MUSE SYSTEM (Bezet) Calculated P [place] 50 degrees MUSE SYSTEM Calculated R [place] -28 degrees MUSE SYSTEM Calculated T [place] 90 degrees MUSE SYSTEM INTERPRETATION Sinus tachycardia [...] (ABNORMAL) Differential, Automated (07/05/2017 8:20 PM EST) [facility] gist Method Time Signature Neutrophils % 88.4 % [facility] Neutr Abs (ANC) 9.08 (H) 1.70 - [facility] [address] [facility] x10(3)/[facility] L LABORATORY Lymphocytes % 7.0 % [facility] Lymphocytes Abs 0.7 (L) 0.9 - 3.2 [facility] x10(3)/[facility] LABORATORY Monocytes % 3.7 % [facility] Monocyte Abs 0.4 0.3 - 0.9 [facility] x10(3)/[facility] LABORATORY Eosinophils % 0.1 % [facility] Eosinophils Abs 0.0 0.0 - 0.4 [facility] x10(3)/[facility] LABORATORY Basophils % 0.2 % [facility] Basophils Abs 0.0 0.0 - 0.1 [facility] x10(3)/[facility] LABORATORY Immature Gran % 0.60 [...] Abs 0.06 (H) 0.00 - 0.04 x10(3)/[facility] LABORATORY Specimen Anatomical Collection Method Collection Time Receive d Time (Source) Location / / Volume Laterality Blood specimen 07/05/2017 8:20 PM 017 8:27 (specimen) EST PM EST Resulting Agency Comment Spec In Lab Daphne Shahid MD HEMATOLOGY ORDERABLES Performing Organization Address City/State/[place] [address] (ABNORMAL) Hemogram (07/05/2017 8:20 PM EST) Analysis Performed At Patho logist Time Signature WBC 10.3 (H) 4.0 - 9.5 [facility] x10(3)/[facility] LABORATORY RBC 4.64 4.58 - [facility] [address] [facility] x10(6)/[facility] LABORATORY Hemoglobin 14.1 13.7 - [facility] 16.5 gm/dL [facility] LABORATORY Hematocrit 40.8 40.5 - [place] 48.5 % [facility] LABORATORY MCV 87.9 82.9 - [facility] 93.1 [facility] LABORATORY MCH 30.4 27.5 - [place] 32.1 pg [facility] LABORATORY MCHC 34.6 32.0 - [facility] 35.7 gm/dL [facility] LABORATORY Platelets 204 145 - 357 [facility] x10(3)/[facility] LABORATORY RDWSD 46.1 (H) 36.0 - [place] 45.0 [facility] LABORATORY RDWCV 14.5 (H) 11.4 - [facility] 13.8 % [facility] LABORATORY MPV 9.7 7.6 - 12.9 [facility] LABORATORY nRBC % Auto 0.0 % [facility] nRBC Abs Auto 0.000 0.000 - [place] [facility] [address] [facility] x10(3)/[facility] LABORATORY Specimen Anatomical Collection Method Collection Time Receive d Time (Source) Location / / Volume Laterality Blood specimen 07/05/2017 8:20 PM 017 8:27 (specimen) EST PM EST Resulting Agency Comment Spec In Lab Daphne Shahid MD HEMATOLOGY ORDERABLES Performing Organization Address City/[facility]/ZIP Code Phon e Number [address] APTT (07/05/2017 8:20 PM [...] City/[facility]/ZIP [facility] [place] [address] (ABNORMAL) Cardiac Enzymes (LEB/CGP) (07/05/2017 8:20 PM EST) P athologist Signature Troponin-T 2.11 (H) 0.00 - [facility] 0.00 ng/mL [facility] [...] additional sample may be indicated. Reference: Third [place] Definition of Myocardial Infarction. Journal of the [place] College of [employer]iology 2012;60:1581-98 CK, Total 149 [...] [facility]/[place] [address] (ABNORMAL) Magnesium (07/05/2017 8:20 PM EST) P athologist Signature Magnesium 0.68 (L) 0.69 - 1.07 [facility] mmol/L [facility] LABORATORY Specimen Anatomical Collection Method Collection Time Receive d Time (Source) Location / / Volume Laterality Blood specimen 07/05/2017 8:20 PM 017 8:27 (specimen) EST PM EST Resulting Agency Comment Spec In Lab Daphne Shahid MD CHEMISTRY ORDERABLES Performing Organization Address City/State/[place] [address] (ABNORMAL) Basic Metabolic Panel (non-fasting) (07/05/2017 8:20 PM EST) athologist Signature Glucose Lvl 321 (H) 65 - 199 [facility] mg/dL [facility] LABORATORY [...] or in patients with acute kidney failure. http://HelpAround.[employer]/DHnkdep http://BackTrack/DHMCnkf Specimen Anatomical Collection Method Collection Time Receive d Time (Source) Location / / Volume Laterality Blood specimen 07/05/2017 8:20 PM 017 8:27 (specimen) EST PM EST Resulting Agency Comment Spec In Lab Daphne Shahid MD CHEMISTRY ORDERABLES Performing Organization Address City/State/[place] [address] (ABNORMAL) POCT Glucose (07/05/2017 7:32 PM EST) athologist Signature POC Glucose 296 (H) 65 - 199 [facility] mg/dL [facility] LABORATORY [...] Address City/State/ZIP Code [place] [address] CARDIAC CATHETERIZATION (07/05/2017 6:47 PM EST) Anatomical Region Laterality Modality Other Specimen (Source) Anatomical Location Collection Method / Collectio n Time Received Time / Laterality Volume Narrative 07/05/2017 7:27 PM EST ?[facility] ? Cardiac Cathete rization/Intervention Report ? Patient Name: Natalya, Gregory ? Procedure Date: 07/05/2017 ? A #: [id number] ? Primary Physician: Clarisa, Jet T ? Case #: [id number] ? File Name: [id number] ? Catheterization Order Number: [id number] ? [facility] ?Bed Placement Coord[facility] ? Final Report [place], [place] ? Patient Name: ? Gregory Natalya ?ID#: ?[id number] ? : ?1945 ? Procedure Date: ? [...] presented with: non -STEMI (w/i 7 days). [place] ?[employer] angina c lass was IV. [...] site angio graphy and IABP insertion in director of cath lab. ? Jet Mckenna, M.D. ? Electronically Signed by: Jet Sampson DeVrizack s, M.D. ? Report Finalized: 07/05/2017 ??19:23 ? Report Last Ammended: 10/26/2017 ??10:29 ? Procedure Note Jet Mckenna MD - 10/26/2017Formatt ing of this note might be different from the original. [facility] Cardiac Catheterization/Intervention Re port Patient Name: Gregory Hoang Procedure Date: 07/05/2017 A #: [id number] Primary Physician: Jet Mckenna Case #: [id number] File Name: [id number] Catheterization Order Number: [id number] [facility] Bed Placement Coordinator [facility] Final Report [place], [place] Patient Name: Gregory Hoang ID#: [id number] : 1945 Procedure Date: July 05, [...] presented with: non-STEMI ( w/i 7 days). [place] [employer] angina class was IV. No [...] site angiograph y and IABP insertion in director of cath lab. Jet Mckenna M.D. Electronically Signed by: [...] 8:53 AM EST Procedure: ?Transthoracic Echocardiogram Patient: ?NATLAYA JENKINS E ? (Age): 1945(72y) Med Rec#: ? [id number] ?Sex: ?M ? Site Loc: ? [facility] ?Ht / Wt: ??173(cm)/86(kg) Pt. Loc: ?[facility] ? BSA: ?2 Study Date: ?? 07/05/2017 ?Pt. Type: Inpatient Tape: ? Referring: Daphne Shahid ([id number]) Referring: MANDA ALCANTAR Reading: Blade Preston ([id number]) Supervisor Paste Plant: Dayami Paula BA, [facility] [...] E-wave Vmax ?0.8 ?m/sec ? MV deceleration [id number] ?msec ? MV A-wave Vmax ?0.8 ?m/sec [...] ? Mid-Inferior ?Akinetic ? Mid-Inferoseptal ?Hypokinetic ? Cheney-Septal ? Akinetic ? Cheney-Anterior ? Hypokinetic ? Cheney-Lateral ?Hypokinetic ? Cheney-Inferior ? Akinetic ? Cheney-Tip ?Akinetic ? This report has been electronically sign ed by: _ Blade Preston MD ? 07/06/2017 08 :53:15 Images reviewed and interpretation verif ied [facility] Cardiac Ultrasound Laboratory Procedure Note Blade Preston MD - 07/06/2017Formatt ing of this note might be different from the original. Procedure: Transthoracic Echocardiogram Patient: NATALYA MCBRIDE(Age): [birth year]72y) Med Rec#: [id number] Sex: M Site Loc: [facility] Ht / Wt: 173(cm)/86(kg) Pt. Loc: U BSA: 2 Study Date: 07/05/2017 Pt. Type: Inpatie nt Tape: Referring: Daphne Shahid ([id number]) Referring: MANDA ALCANTAR Reading: Blade Preston ([id number]) Supervisor Paste Plant: Dayami Paula BA, [facility] [...] MV E-wave Vmax 0.8 m/sec MV deceleration [id number] msec MV A-wave Vmax 0.8 m/sec MV [...] Hypokinetic Mid-Posterolateral Hypokinetic Mid-Inferior Akinetic Mid-Inferoseptal Hypokinetic Cheney-Septal Akinetic Cheney-Anterior Hypokinetic Cheney-Lateral Hypokinetic Cheney-Inferior Akinetic Cheney-Tip Akinetic This report has been electronically sign ed by: _ Blade Preston MD 07/06/2017 08:53:15 Images reviewed and interpretation verif ied [facility] Cardiac Ultrasound Laboratory Daphne Shahid MD ECHO ORDERABLES Differential, Automated (07/05/2017 4:55 PM EST) athologist Signature Neutrophils % 77.0 % [facility] Neutr Abs (ANC) 5.26 1.70 - [facility] 6.10 [facility] x10(3)[facility] Lymphocytes % 13.3 % [facility] Lymphocytes Abs 0.9 0.9 - 3.2 [facility] x10(3)/[facility] LABORATORY Monocytes % 8.2 % [facility] Monocyte Abs 0.6 0.3 - 0.9 [facility] x10(3)/[facility] LABORATORY Eosinophils % 0.7 % [facility] Eosinophils Abs 0.0 0.0 - 0.4 [facility] x10(3)[facility] LABORATORY Basophils % 0.4 % [facility] Basophils Abs 0.0 0.0 - 0.1 [facility] x10(3)/[facility] LABORATORY Immature Gran % 0.40 % [facility] Comment: Immature granulocytes(IG's)percentage an d absolute count will include metamyelocytes, myelocytes, and promyelo cytes. Blood smears from CBCs yielding IG's will be scanned manually for concor dance. If this scan disagrees with the automated IG or if promyelocytes are not ed, a manual differential will be performed. Melisa Gran Abs 0.03 0.00 - 0.04 x10(3)/[facility] Y [facility] LABORATORY Specimen Anatomical Collection Method Collection Time Receive d Time (Source) Location / / Volume Laterality Blood specimen 07/05/2017 4:55 PM 017 5:24 (specimen) EST PM EST Resulting Agency Comment Spec In Lab Daphne Shahid MD HEMATOLOGY ORDERABLES Performing Organization Address City/State/[place] [address] (ABNORMAL) Hemogram (07/05/2017 4:55 PM EST) Analysis Performed At Patho logist Time Signature WBC 6.8 4.0 - 9.5 [facility] x10(3)/[facility] LABORATORY RBC 4.67 4.58 - [place] [address] [facility] x10(6)/[facility] LABORATORY Hemoglobin 14.0 13.7 - [facility] 16.5 gm/dL [facility] LABORATORY Hematocrit 41.0 40.5 - [facility] 48.5 % [facility] LABORATORY MCV 87.8 82.9 - [facility] 93.1 [facility] LABORATORY MCH 30.0 27.5 - [place] 32.1 pg [facility] LABORATORY MCHC 34.1 32.0 - [place] 35.7 gm/dL [facility] LABORATORY Platelets 197 145 - 357 [facility] x10(3)/[facility] LABORATORY RDWSD 46.4 (H) 36.0 - [facility] 45.0 [facility] LABORATORY RDWCV 14.5 (H) 11.4 - [facility] 13.8 % [facility] LABORATORY MPV 9.7 7.6 - 12.9 [facility] LAB[facility]ORY nRBC % Auto 0.0 % [facility] nRBC Abs Auto 0.000 0.000 - [facility] [address] [facility] x10(3)/[facility] LABORATORY Specimen Anatomical Collection Method Collection Time Receive d Time (Source) Location / / Volume Laterality Blood specimen 07/05/2017 4:55 PM 017 5:24 (specimen) EST PM EST Resulting Agency Comment Spec In Lab Daphne Shahid MD HEMATOLOGY ORDERABLES Performing Organization Address City/State/[place] [address] (ABNORMAL) Cardiac Enzymes (LEB/CGP) [...] additional sample may be indicated. Reference: Third [place] Definition of Myocardial Infarction. Journal of the [place] College [employer]iology 2012;60:1581-98 CK, Total 191 0 - 200 unit/L [facility] LAB[facility]ORY Specimen Anatomical Collection Method Collection Time Receive d Time (Source) Location / / Volume Laterality Blood specimen 07/05/2017 4:55 PM 017 5:56 (specimen) EST PM EST Resulting Agency Comment Spec In Lab Daphne Shahid MD CHEMISTRY ORDERABLES Performing Organization Address City/State/ZIP Code Phon e Number [place] [phone] (ABNORMAL) pro-Brain Natriuretic Peptide (07/05/2017 4:55 PM EST) P athologist Signature ProBNP 1,598 (H) <=125 [facility] pg/mL [facility] LABORATORY Specimen Anatomical Collection Method Collection Time Receive d Time (Source) Location / / Volume Laterality Blood specimen 07/05/2017 4:55 PM 017 5:24 (specimen) EST PM EST Resulting Agency Comment Spec In Lab Daphne Shahid MD CHEMISTRY ORDERABLES Performing Organization Address City/State/ZIP Code Phon e Number [address] Magnesium (07/05/2017 4:55 PM EST) P athologist Signature Magnesium 0.78 0.69 - 1.07 [facility] mmol/L [facility] LABORATORY Specimen Anatomical Collection Method Collection Time Receive d Time (Source) Location / / Volume Laterality Blood specimen 07/05/2017 4:55 PM 017 5:24 (specimen) EST PM EST Resulting Agency Comment Spec In Lab Daphne Shahid MD CHEMISTRY ORDERABLES Performing Organization Address City/[facility]/[place] [address] (ABNORMAL) Basic Metabolic Panel (non-fasting) (07/05/2017 4:55 PM EST) P athologist Signature Glucose Lvl 230 (H) 65 - 199 [facility] mg/dL [facility] LABORATORY Comment: Diabetes: >=200 mg/dL plus symp toms BUN 19 10 - 20 mg/dL [facility] LABORATORY Creatinine 1.04 0.80 - [...] or in patients with acute kidney failure. http://HelpAround.[employer] Internet/DHnkdep http://BackTrack/MCnkf Specimen Anatomical Collection Method Collection Time Receive d Time (Source) Location / / Volume Laterality Blood specimen 07/05/2017 4:55 PM 017 5:24 (specimen) EST PM EST Resulting Agency Comment Spec In Lab Daphne Shahid MD CHEMISTRY ORDERABLES Performing Organization Address City/[facility] Code Phon e Number [address] (ABNORMAL) APTT (07/05/2017 4:55 [...] Address City/[facility] [place] [address] (ABNORMAL) POCT Glucose (07/05/2017 4:53 PM EST) P athologist Signature POC Glucose 208 (H) 65 - 199 [facility] mg/dL [facility] LABORATORY [...] City/State/ZIP Code Phon e Number [place] [phone] EKG 12 Lead (07/05/2017 4:32 PM EST) Component Value Ref Range Test Analysis Performed Pathologis t Method Time At Signature Ventricular rate 97 BPM MUSE SYSTEM Atrial Rate 97 BPM MUSE SYSTEM P-R Interval 148 ms MUSE SYSTEM QRS Duration 96 ms MUSE SYSTEM Q-T Interval 364 ms MUSE SYSTEM QTC Calculated 462 ms MUSE SYSTEM (Bezet) Calculated P [place] 48 degrees MUSE SYSTEM Calculated R [place] -33 degrees MUSE SYSTEM Calculated T [place] 98 degrees MUSE SYSTEM INTERPRETATION Normal sinus [...] Coronary atherosclerosis of unspecified type of vessel, nikolai or graft Cardiomyopathy, ischemic Other specified forms [...] post-op day 1 in the AM Give WI if unable to take PO, Routine Given [...] in dextrose 5% 250 mL EST infusion (INSPECTOR METAL FABRICATING) CONTINUOUS PRN, Starting on Wed07/05/17 at 1837, [...] post-op day 1 in the AM Give WI if unable to take PO, Routine atorvastatin [...] (COMPLETED ) 0700 (Given - Provider: Portillo Jnoes RN - Comment: five ennly apaced injections [...] post-op day 1 in the AM Give WI if unable to take PO
Routine Group [...]
Routine documented in this encounter Care Teams Bowl Turner Relationship Specialty Start Date End Date Lovely Vicente MD PCP - General 04/16/[address] [place] [address] [address] [place] [address] documented as of this encounter
--- OUTSIDE RECORDS SUMMARY | 2022-04-20 08:20 | XMS_ITS | Encounter Summary ---
:1945 Author Organization [place] [address] Care Team Providers Name Role Phone MiyaAngela STACIE Primary Care Provider Reason for Visit Reason Comments Urinary Retention Encounter Details Date Type Department Care Team Description 05/16/2013 Follow-Up Urology at [facility] Blade Smith, Retention of urine [facility] (Primary Dx) [place] [address] UROLOGY DEPT [place] [address] (Wo rk) Social History Tobacco Use Types [...] Cardiology Zulma Dolan MD [facility] [address] [place], [place] [address] (Wo rk) 05/28/2022 Laboratory Appointment Lab 05/28/2022 Office Visit Cardiology Zulma Dolan [place] [address] Liz Poole PA [facility] [place] [address] 06/10/2022 Office Visit Dermatology Laura Scherer MD [facility] DR TE[address] [place], [place] [address] (Wo rk) documented as of this encounter Visit Diagnoses Diagnosis Retention of urine - Primary Retention of urine, unspecified documented in this encounter Care Teams Stock Dealer Relationship Specialty Start Date End Date Angela Holliday APRN PCP - General 01/25/13 04/15/[address] [place] [address] documented as of this encounter
--- OUTSIDE RECORDS SUMMARY | 2022-04-20 08:20 | XMS_ITS | Encounter Summary ---
:1945 Author Organization [facility] [place] [address] Care Team Providers Name Role Phone MiyaAngela STACIE Primary Care Provider Encounter Details Date Type Department Care Team Description 11/27/2013 Orders Only Urology at [facility] Blade Smith, Urinary retention [facility] (Primary Dx) [place] [address] UROLOGY DEPT [place], [place] 0375 Social History Tobacco Use Types [...] Dolan MD [facility] er [place], [place] [address] (Wo rk) 05/28/2022 Laboratory Appointment Lab 05/28/2022 Office Visit Cardiology Zulma Dolan MD [facility] [place] [address] Liz Poole PA [facility] [place] [address] 06/10/2022 Office Visit Dermatology Laura Scherer MD [facility] ER DR TE[address] [place], [place] [address] (Wo rk) documented as of [...] City/State/[place] [address] CERNER MILLENNIUM documented in this encounter Visit Diagnoses Diagnosis Urinary retention - Primary Retention of urine, unspecified documented in this encounter Care Teams Mold Design Engineer Relationship Specialty Start Date End Date Angela Holliday APRN PCP - General 01/25/13 04/15/[address] [place] [address] documented as of this encounter
--- OUTSIDE RECORDS SUMMARY | 2022-04-20 08:20 | XMS_ITS | Encounter Summary ---
:1945 [place] [address] Care Team Providers Name Role Phone Lovely Vicente MD Primary Care Provider Reason for Visit Reason Onset Date Comments Other 12/09/2016 RESULTS Encounter Details Date Type Department Care Team Description 12/09/2016 Telephone Dermatology at [facility] Halima Cadet MD Other (RESULTS) [address] [facility] [address] [facility] [phone] [place], [place] [address] (Wo rk) Social History Tobacco [...] EDT Spoke with patient's , Kisha (personal parts representative). I advised her Don's pathology results [...] back. She can be reached back at [phone] documented in this encounter Plan of Treatment Upcoming Encounters Date Type Specialty Care Team Description 05/28/2022 Appointment Cardiology Zulma Dolan MD [facility] [address] [place], [place] [address] (Wo rk) 05/28/2022 Laboratory Appointment Lab 05/28/2022 Office Visit Cardiology Zulma Dolan MD [facility] [place] [address] Liz Poole PA [facility] [place] [address] 06/10/2022 Office Visit Dermatology Laura Scherer MD [facility] [address] [place], [place] [address] (Wo rk) documented as of this encounter Visit Diagnoses Not on filedocumented in this encounter Care Teams Spa Director Relationship Specialty Start Date End Date Lovely Vicente MD PCP - General 04/16/[address] [place] [address] documented as of this encounter
--- OUTSIDE RECORDS SUMMARY | 2022-04-20 08:20 | XMS_ITS | Encounter Summary ---
:1945 Author Organization [place] [address] Care Team Providers Name Role Phone Lovely Vicente MD Primary Care Provider Reason for Visit Reason Comments Nevus excision dysplastic nevus mi d upper abdomen Encounter Details Date Type Department Care Team Description 12/03/2016 Procedure visit Dermatology at Halima Dubois Dysplastic nevus of Road MD Adrián trunk [address] [facility] [address] [facility] [phone] RD-DERMATOLGY [place] [address] Social History Tobacco Use Types Packs/Day Years [...] Halima Cordero MD during the day at [phone] Nurse: Mira [phone] Amy After 5 PM and on weekends, please call the hospital number , and ask for the Magnetic Tape Winder motion picture set grip. documented in this encounter Progress Notes Halima Cordero MD - 12/10/2016 5:41 PM EDT Gwendolyn, Excision shows scar, there is no residual of the severely dysplastic nevus. Please notify patient and check on wound healing. Thank you, DTB Halima Cordero MD - 12/03/2016 3:00 PM EDT Images from the original note were not included. Dermatology Procedure note: Attending: Halima Cordero MD Recruitment Assistant: Mira James LPN Referring MD: Rigoberto Garcia [...] to call the clinic or the on-call revenue cycle consultant over the weekend. ??? Name of Procedure? [...] Zulma Dolan MD [facility] [place] [address] Liz Poole PA [facility] [place] [address] 06/10/2022 Office Visit Dermatology Laura Scherer MD [facility] DR TE[address] GR[address]DERMAT [place], [place] 0[address] (Wo rk) [...] Value Ref Test Analysis Performed At [facility] Method Time Signature Surgical [id number] ?Location: [facility] The signing pathologist has (i) examined [...] Clinical Diagnosis: Dysplastic nevus, see previous pathology [id number] SPECIMEN PROCESSING A - Labeled/Fixative: Mid-upper abdomen, [...] Organization Address City/State/[place] [address] Specimen to Pathology (NON-OR) (12/03/2016 3:31 PM EDT) Specimen Anatomical Collection Method Collection Time Receive d Time (Source) Location / / Volume Laterality AP Specimen 12/03/2016 3:31 PM 7 6:27 EDT PM EDT Narrative [facility] - 12/03/2016 6:27 PM EDT Specimen requisition ordered. ??Separate Pathology report to follow Resulting Agency Comment Spec In Lab Halima Cordero MD PATHOLOGY/CYTOLOGY ORDERABLE S Performing Organization Address City/State/[place] [address] documented in this encounter Visit Diagnoses Diagnosis Dysplastic nevus of trunk Benign neoplasm of skin of trunk, except scrotum documented in this encounter Care Teams Acute Care Nurse Practitioner Relationship Specialty Start Date End Date Lovely Vicente MD PCP - General 04/16/[address] [place] [address] documented as of this encounter
--- OUTSIDE RECORDS SUMMARY | 2022-04-20 08:20 | XMS_ITS | Encounter Summary ---
:1945 Author Organization [facility] [place] [address] Care Team Providers Name Role Phone Lovely Vicente MD Primary Care Provider Encounter Details Date Type Department Care Team Description 09/03/2016 Laboratory Appointment Lab at [facility] Hx of [facility] [place] [address] Social History Tobacco Use Types Packs/Day Years [...] [facility] er [address] [place] [address] (Wo rk) 05/28/2022 Laboratory Appointment Lab 05/28/2022 Office Visit Cardiology Zulma Dolan MD [facility] [place] [address] Liz Poole PA [facility] [place] [address] 06/10/2022 Office Visit Dermatology Laura Scherer MD [facility] ER DR TEJA GR[address] [place], [place] [address] (Wo rk) documented as of [...] AM EST) athologist Signature Thyroglobulin <0.4 <=54.9 [facility] ng/mL [facility] LABORATORY Comment: Interpret with caution. Tg levels [...] than those obtained with T4 withdrawal protocol (Smoot BR et al. J Clin Endo Metab 1999;84:5399-9807). Assay performed using the DPC Immulite T [...] Address City/State/ZIP Code Phon e Number [address] TSH (09/03/2016 11:07 AM EST) P athologist Signature TSH 3.01 0.27 - 4.20 [facility] mcIU/mL [facility] LABORATORY Specimen Anatomical Collection Method Collection Time Receive d Time (Source) Location / / Volume Laterality Blood specimen 09/03/2016 11:07 7 (specimen) AM EST 11:22 AM EST Resulting Agency Comment Spec In Lab Luz Prescott MD CHEMISTRY ORDERABLES Performing Organization Address City/[facility]/ZIP [facility] [place] [address] documented in this encounter Visit Diagnoses Diagnosis Hx of papillary thyroid carcinoma Personal history of malignant neoplasm o f thyroid documented in this encounter Care Teams Engine Repair Supervisor Relationship Specialty Start Date End Date Lovely Vicente MD PCP - General 04/16/[address] [place] [address] documented as of this encounter
--- OUTSIDE RECORDS SUMMARY | 2022-04-20 08:20 | XMS_ITS | Encounter Summary ---
:1945 Author Organization [facility] [place] [address] Care Team Providers Name Role Phone Lovely Vicente MD Primary Care Provider Reason for Visit Reason Comments Skin Check Encounter Details Date Type Department Care Team Description 06/05/2016 Office Visit Dermatology at Rigoberto Forman istory of melanoma; Abdelrahman HOOPER MD Seborrheic keratosis; [address] [facility] [place] (actinic keratosis); [place] [address] Multiple nevi; [phone] [facility] [address]DERMATOLGY [place], [place] [address] Social History Tobacco Use Types [...] Diagnostic, Drum (ACCU-CHEK COMPACT TEST) Strip by [facility].(Non- Drug; Combo Route) route 2 times daily. [...] Cardiology Zulma Dolan MD [facility] [place], [place] [address] (Wo rk) 05/28/2022 Laboratory Appointment Lab 05/28/2022 Office Visit Cardiology Zulma Dolan MD [facility] [place] [address] Liz Poole PA [facility] [place] [address] 06/10/2022 Office Visit Dermatology Laura Scherer MD [facility] [address] [place], [place] [address] (Wo rk) documented as of this encounter Visit Diagnoses Diagnosis History of melanoma Personal history of malignant melanoma o f skin Seborrheic keratosis Other seborrheic keratosis [place] (actinic keratosis) Actinic keratosis Multiple nevi Benign neoplasm of skin, site unspecifie d Scar Scar condition and fibrosis of skin documented in this encounter Care Teams Shipper Receiver Relationship Specialty Start Date End Date Lovely Vicente MD PCP - General 04/16/[address] [place] [address] documented as of this encounter
--- OUTSIDE RECORDS SUMMARY | 2022-04-20 08:20 | XMS_ITS | Encounter Summary ---
:1945 Author Organization [facility] [place] [address] Care Team Providers Name Role Phone Lovely Vicente MD Primary Care Provider Reason for Visit Reason Comments Medication Refill Encounter Details Date Type Department Care Team Description 05/10/2015 Refill Endocrinology at [facility] Rosalind Covarrubias, [facility] [place] [address] [facility] [phone] ENDOCRINOLOGY [place], [place] [address] (Wo rk) Social History Tobacco [...] Zulma Dolan MD [facility] er [address] [place], [place] [address] (Wo rk) 05/28/2022 Laboratory Appointment Lab 05/28/2022 Office Visit Cardiology Zulma Dolan MD [facility] [place] [address] Liz Poole PA [facility] [place] [address] 06/10/2022 Office Visit Dermatology Laura Scherer MD [facility] ER DR [address]JA GR[address]DERMAT [place], [place] [address] (Wo rk) documented as of this encounter Visit Diagnoses Not on filedocumented in this encounter Care Teams Manager Collection Relationship Specialty Start Date End Date Lovely Vicente MD PCP - General 04/16/[address] [place] [address] documented as of this encounter
--- OUTSIDE RECORDS SUMMARY | 2022-04-20 08:20 | XMS_ITS | Encounter Summary ---
:1945 Author Organization [facility] [place] [address] Care Team Providers Name Role Phone Angela Sotelo APRN Primary Care Provider Encounter Details Date Type Department Care Team Description 01/16/2014 Surgery G[facility]enterology at [facility] Nohemi Jaimes, COLONOSCOPY, [facility] Jorge mcnamara MD [place], [place] [address] [facility] LES[facility] BY SNARE ([facility] [phone] DR Cintron) GASTROENTEROLOGY DEPT. [place], [place] [address] Social History Tobacco Use Types [...] you need to be checked. [facility] [phone] 8a-5p Same Day Endo [phone] 7a-8p Otherwise contact [phone] and ask to speak to the gear hobber television cable installer Follow up care is a shelton part [...] Jaimes MD - 01/16/2014 9:49 AM EDT [facility] Operative Note Patient Name: Gregory Fatima : [id number] MR#: [id number] Case Date: 01/16/2014 Surgeon: Surgeon(s) and Role: * Nohemi Jaimes MD - Primary Preoperative diagnosis: 5 yr surv. Full procedure note is documented under the Procedure section of eDH. documented in this encounter Plan of Treatment Upcoming Encounters Date Type Specialty Care Team Description 05/28/2022 Appointment Cardiology Zulma Dolan MD [facility] Dr [place] [address] (Wo rk) 05/28/2022 Laboratory Appointment Lab 05/28/2022 Office Visit Cardiology Zulma Dolan MD [facility] [place] [address] Liz Poole PA [facility] [place] [address] 06/10/2022 Office Visit Dermatology Laura Scherer MD [facility] [address] [place] [address] (Wo rk) documented as of this encounter [...] Surgical Pathology Report (01/16/2014 9:53 AM EDT) [facility] Method Time Signature Surgical CERNER Pathology ? [facility] Report ? Provider: ?? SHREE, NOHEMI Gonzalez ?Pt. Name: ?? MALICKA RT, GREGORY E ? Acc #: ?[id number] ?Pt. MRN: ?[id number] ? Col Date: ?? 4 ? /Sex: [...] Organization Address City/State/ZIP Code Phon e Number [place] [phone] [address] LAB[address] RAKESH WALKER Specimen to [...] [facility]/[place] [address] CERNER MILLENNIUM Specimen to [...] PATHOLOGY/CYTOLOGY ORDERABLE S Performing Organization Address [facility] [place] [place] [address] CERNER MILLENNIUM COLONOSCOPY (01/16/2014 7:25 AM EDT) [facility] gist Method Time Signature COLONOSCOPY [facility] PROVATION Endoscopy Patient Name: Gregory Fatima ? Procedure Date: 01/16/2014 7:25 AM ? N: [id number] ? Date of : 1945 ? Age: 68 ? Order #: [id number] ? Procedure: ? Colonoscopy Indications: ? High [...] Laterality 01/16/2014 7:25 AM EDT Angela Sotelo YARN TWISTER GENERAL SURGICAL ORDERABLES Performing Organization Address City/State/ZIP [...] Routine documented in this encounter Care Teams Silverware Washer Relationship Specialty Start Date End Date Angela Sotelo APRN PCP - General 01/25/13 04/15/[address] [place] [address] documented as of this encounter
--- OUTSIDE RECORDS SUMMARY | 2022-04-20 08:20 | XMS_ITS | Encounter Summary ---
:1945 Author Organization [place] [address] Care Team Providers Name Role Phone Lovely Vicente MD Primary Care Provider Reason for Visit Reason Onset Date Comments Pre Procedure Call 12/02/2016 Encounter Details Date Type Department Care Team Description 12/02/2016 Telephone Dermatology at [facility] Mira James LPN Pre Procedure Call [address] [place] [address] Social History Tobacco Use Types Packs/Day [...] Zulma Dolan MD [facility] [place], [place] [address] (Wo lissa) 05/28/2022 Laboratory Appointment Lab 05/28/2022 Office Visit Cardiology Zulma Dolan MD [facility] [place] [address] Liz Poole PA [facility] [place] [address] 06/10/2022 Office Visit Dermatology Laura Scherer MD [facility] DR [address] GR[address]DER[place], [place] 0[address] (Wo rk) documented as of this encounter Visit Diagnoses Not on filedocumented in this encounter Care Teams Tariff Clerk Relationship Specialty Start Date End Date Lovely Vicente MD PCP - General 04/16/[address] [place] [address] documented as of this encounter
--- OUTSIDE RECORDS SUMMARY | 2022-04-20 08:20 | XMS_ITS | Encounter Summary ---
:1945 Author Organization [place] [address] Care Team Providers Name Role Phone Som Holliday APRN Primary Care Provider Encounter Details Date Type Department Care Team Description 04/11/2014 Procedure visit Gastroenterology at [facility], CONV Esophageal reflux [facility] Luz Winchester RN (Primary Dx) [place] [address] Social History Tobacco Use Types Packs/Day Years Used Date Former Smoker Alcohol Use Standard Drinks/Week Comments No 0 (1 standard drink = 0.6 oz pure alcoho l) Sex Assigned at Date Recorded Not on file documented as of this encounter Progress Notes Adalid Can MD - 04/13/2014 3:43 PM EDT ESOPHAGEAL MANOMETRY Don Fatima Male, 69 yrs, 1945 PCP: SOM HOLLIDAY HELPER MAINTENANCE CLEANING: NONE STUDY DATE: 04/11/14 PROVIDER: [place] ([id number]) INDICATION Reflux; preoperative evaluation. METHODS Stationary esophageal manometry was performed with the ENT Surgical esophageal motility system utilizing the Polygram software [...] of the esophagus. Adalid Can, PhD, MD hide puller, [facility] [employer] [facility] [employer] Section of Gastroenterology and Hepatology [facility] [place] [address] V: [phone] F: [phone] [facility]/gabriela CC/EC: PCP - staff msg copy 04/13/14 Henrique Taylor MD - fax copy 04/13/14 Luz Keller RN - 04/11/2014 8:14 AM EDT Esophageal manometry performed without difficulty and Was well tolerated. documented in this encounter Plan of Treatment Upcoming Encounters Date Type Specialty Care Team Description 05/28/2022 Appointment Cardiology Zulma Dolan MD [facility] [place], [place] [address] (Wo rk) 05/28/2022 Laboratory Appointment Lab 05/28/2022 Office Visit Cardiology Zulma Dolan MD [facility] [place] [address] Liz Poole PA [facility] [place] [address] 06/10/2022 Office Visit Dermatology Laura Scherer MD [facility] DR TEJA GR-DERMAT [place], [place] [address] (Wo rk) documented as of this encounter Visit Diagnoses Diagnosis Esophageal reflux - Primary documented in this encounter Care Teams Lacquerer Relationship Specialty Start Date End Date Som Holliday APRN PCP - General 01/25/13 04/15/[address] [place] [address] documented as of this encounter
--- OUTSIDE RECORDS SUMMARY | 2022-04-20 08:21 | XMS_ITS | Encounter Summary ---
:1945 Author Organization [facility] [place] [address] Care Team Providers Name Role Phone MiyaAngela STACIE Primary Care Provider Reason for Visit Reason Onset Date Comments Advice Only 03/31/2013 Encounter Details Date Type Department Care Team Description 03/31/2013 Telephone Urology at [facility] Daniele Trejo III, MD Advice Only One [facility] [place] [address] [place] [id number] [phone] (Wo rk) Social History Tobacco Use Types [...] Cardiology Zulma Dolan MD [facility] [place], [place] [address] (Wo rk) 05/28/2022 Laboratory Appointment Lab 05/28/2022 Office Visit Cardiology Zulma Dolan MD [facility] [place] [address] Liz Poole PA [facility] [place] [address] 06/10/2022 Office Visit Dermatology Laura Scherer MD [facility] DR TEJA GR[address]DERMAT [place], [place] [address] (Wo rk) documented as of this encounter Visit Diagnoses Not on filedocumented in this encounter Care Teams Coal Crusher Operator Relationship Specialty Start Date End Date Angela Holliday APRN PCP - General 01/25/13 04/15/[address] [place] [address] documented as of this encounter
--- OUTSIDE RECORDS SUMMARY | 2022-04-20 08:21 | XMS_ITS | Encounter Summary ---
:1945 Author Organization [facility] [place] [address] Care Team Providers Name Role Phone Angela Holliday APRN Primary Care Provider Encounter Details Date Type Department Care Team Description 03/30/2013 Telephone General Surgery at [facility] Cliff Nevarez, [place] [address] Social History Tobacco Use Types Packs/Day [...] Zulma Dolan MD [facility] er [place], [place] [address] (Wo rk) 05/28/2022 Laboratory Appointment Lab 05/28/2022 Office Visit Cardiology Zulma Dolan MD [facility] [place] [address] Liz Poole PA [facility] [place] [address] 06/10/2022 Office Visit Dermatology Laura Scherer MD [facility] DR TEJA GR-DERMAT [place], [place] [address] (Wo rk) documented as of this encounter Visit Diagnoses Not on filedocumented in this encounter Care Teams Strand Forming Machine Operator Relationship Specialty Start Date End Date Angela Holliday APRN PCP - General 01/25/13 04/15/[address] [place] [address] documented as of this encounter
--- OUTSIDE RECORDS SUMMARY | 2022-04-20 08:21 | XMS_ITS | Encounter Summary ---
:1945 Author Organization [facility] [place] [address] Care Team Providers Name Role Phone MiyaLokeshAngela STACIE Primary Care Provider Encounter Details Date Type Department Care Team Description 04/04/2013 Orders Only General Surgery at [facility] thyroid [facility] MD Eliseo carcinoma (Primary Dx) [facility] [place] [address] GENERAL SURGERY [phone] [place], [place] [address] Social History Tobacco Use Types [...] Dolan MD [facility] er [place] [address] (Wo rk) 05/28/2022 Laboratory Appointment Lab 05/28/2022 Office Visit Cardiology Zulma Dolan MD [facility] [place] [address] Liz Poole PA [facility] [place] [address] 06/10/2022 Office Visit Dermatology Laura Scherer MD [facility] DR TEJA GR-DERMAT [place], [place] [address] (Wo rk) documented as of this encounter Visit Diagnoses Diagnosis Papillary thyroid carcinoma - Primary Malignant neoplasm of thyroid gland documented in this encounter Care Teams Back End Web Developer Relationship Specialty Start Date End Date Angela Holliday APRN PCP - General 01/25/13 04/15/[address] [place] [address] documented as of this encounter
--- OUTSIDE RECORDS SUMMARY | 2022-04-20 08:21 | XMS_ITS | Encounter Summary ---
:1945 Author Organization [facility] [place] [address] Care Team Providers Name Role Phone NeilSom conner STACIE Primary Care Provider Reason for Visit Reason Comments Establish Care OBST GOITER Encounter Details Date Type Department Care Team Description 01/25/2013 Office Visit General Surgery at [facility] er colloid, toxic, [facility] MD Eliseo nodular (Primary Dx) [facility] [place], [place] GENERAL SURGERY [id number] [place], [place] [id number] [phone] Social History Tobacco Use Types Packs/Day Years [...] the thyroid gland were obtained using a [employer] MicroMaxx and an HFL38/13-6 broadband linear array [...] agrees to proceed. Will sign in through [facility]. Consent is signed. Send copy to Dr. SOM HOLLIDAY APRN and Elijah Elias MD. documented in this encounter Plan of Treatment Upcoming Encounters Date Type Specialty Care Team Description 05/28/2022 Appointment Cardiology Zulma Dolan MD [facility] [address] [place] [address] (Wo rk) 05/28/2022 Laboratory Appointment Lab 05/28/2022 Office Visit Cardiology Zulma Dolan MD [facility] [place] [address] Liz Poole PA [facility] [place] [address] 06/10/2022 Office Visit Dermatology Laura Scherer MD [facility] DR TEJA GR-DERMAT [place], [place] [address] (Wo rk) documented [...] 406 ms MUSE SYSTEM (Bezet) Calculated P [place] 52 degrees MUSE SYSTEM Calculated R [place] 0 degrees MUSE SYSTEM Calculated T [place] 40 degrees MUSE SYSTEM INTERPRETATION Normal sinus [...] storm documented in this encounter Care Teams Instrument Repair Specialist Relationship Specialty Start Date End Date Som Holliday APRN PCP - General 01/25/13 04/15/[address] [place] [address] documented as of this encounter
--- OUTSIDE RECORDS SUMMARY | 2022-04-20 08:21 | XMS_ITS | Encounter Summary ---
:1945 Author Organization [facility] [place] [address] Care Team Providers Name Role Phone Unknown Primary Care Provider Unavailable Reason for Visit Reason Comments Other Encounter Details Date Type Department Care Team Description 10/05/2012 Telephone Dermatology at [facility] Rigoberto Garcia III, [address] [place] [address] [facility] [phone] TEJA MARIE-DERMAT [place] [address] (Wo rk) Social History Tobacco Use Types [...] Zulma Dolan MD [facility] [place], [place] [address] (Wo rk) 05/28/2022 Laboratory Appointment Lab 05/28/2022 Office Visit Cardiology Zulma Dolan MD [facility] [place] [address] Liz Poole PA [facility] [place] [address] 06/10/2022 Office Visit Dermatology Laura Scherer MD [facility] DR TEJA MARIE-DERMAT [place], [place] [address] (Wo rk) documented as of this encounter Visit Diagnoses Not on filedocumented in this encounter Care Teams Therapeutic Recreation Leader Relationship Specialty Start Date End Date Unknown PCP - General 10/04/12 01/24/13 None documented as of this encounter
--- OUTSIDE RECORDS SUMMARY | 2022-04-20 08:21 | XMS_ITS | Encounter Summary ---
:1945 Author Organization [facility] [place] [address] Care Team Providers Name Role Phone Angela Holliday APRN Primary Care Provider Reason for Visit Reason Onset Date Comments Other 03/30/2013 blood in catheter ba g Encounter Details Date Type Department Care Team Description 03/30/2013 Telephone General Surgery at [facility] Janneth Sharma, Other (blood in [facility] RN catheter bag) [place] [address] Social History Tobacco Use Types Packs/Day [...] Cardiology Zulma Dolan MD [facility] [place], [place] [address] (Wo rk) 05/28/2022 Laboratory Appointment Lab 05/28/2022 Office Visit Cardiology Zulma Dolan MD [facility] [place] [address] Liz Poole PA [facility] [place] [address] 06/10/2022 Office Visit Dermatology Laura Scherer MD [facility] DR TEJA GR[address]DERMAT [place], [place] [address] (Wo rk) documented as of this encounter Visit Diagnoses Not on filedocumented in this encounter Care Teams Rug Cleaning Supervisor Relationship Specialty Start Date End Date Angela Holliday APRN PCP - General 01/25/13 04/15/[address] [place] [address] documented as of this encounter
--- OUTSIDE RECORDS SUMMARY | 2022-04-20 08:21 | XMS_ITS | Encounter Summary ---
:1945 Author Organization [facility] [place] [address] Care Team Providers Name Role Phone Angela Holliday APRN Primary Care Provider Encounter Details Date Type Department Care Team Description 04/05/2013 Office Visit Urology at [facility] [place] [address] Social History Tobacco Use Types Packs/Day [...] MD [facility] Dr [place], [place] [address] (Wo rk) 05/28/2022 Laboratory Appointment Lab 05/28/2022 Office Visit Cardiology Zulma Dolan MD [facility] [place] [address] Liz Poole PA [facility] [place] [address] 06/10/2022 Office Visit Dermatology Laura Scherer MD [facility] DR [address]-DERMAT [place], [place] [address] (Wo rk) documented as of this encounter Visit Diagnoses Not on filedocumented in this encounter Care Teams Director Medical Economics Relationship Specialty Start Date End Date Angela Holliday APRN PCP - General 01/25/13 04/15/[address] [place] [address] documented as of this encounter
--- OUTSIDE RECORDS SUMMARY | 2022-04-20 08:21 | XMS_ITS | Encounter Summary ---
:1945 Author Organization [facility] [address] Care Team Providers Name Role Phone Angela Holliday STACIE Primary Care Provider Encounter Details Date Type Department Care Team Description 04/04/2013 Telephone Urology at [facility] [place] Sanchez MD [facility] [place] [address] UROLOGY DEPT [phone] [place], [place] [address] (Wo rk) Social History [...] Dolan MD [facility] Dr [place], [place] [address] (Wo rk) 05/28/2022 Laboratory Appointment Lab 05/28/2022 Office Visit Cardiology Zulma Dolan MD [facility] [place] [address] Liz Poole PA [facility] [place] [address] 06/10/2022 Office Visit Dermatology Laura Scherer MD [facility] DR TEJA GR-DERMAT [place], [place] [address] (Wo rk) documented as of this encounter Visit Diagnoses Not on filedocumented in this encounter Care Teams Senior Vice President & General Counsel Relationship Specialty Start Date End Date Angela Holliday APRN PCP - General 01/25/13 04/15/[address] [place] [address] documented as of this encounter
--- OUTSIDE RECORDS SUMMARY | 2022-04-20 08:21 | XMS_ITS | Encounter Summary ---
:1945 Author Organization [facility] [place] [address] Care Team Providers Name Role Phone Adi Costello MD Primary Care Provider Reason for Visit Reason Comments Annual Exam ckeck his groin and melanoma follow-up Encounter Details Date Type Department Care Team Description 11/21/2010 Follow-Up Dermatology Arki [place] Melanoma (Primary Dx) [facility] MD Jorge [place] [id number] DERMATOLOGY DEPT . 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 His only complaints are leg cramps, skin [...] [facility] [place], [place] [address] (Wo rk) 05/28/2022 Laboratory Appointment Lab 05/28/2022 Office Visit Cardiology Zulma Dolan MD [facility] [address] Liz Poole PA [facility] [place] [address] 06/10/2022 Office Visit Dermatology Laura Scherer MD [facility] DR TEJA GR-DERMAT [place], [place] [address] (Wo rk) documented as of this encounter Visit Diagnoses Diagnosis Melanoma - Primary Melanoma of skin, site unspecified documented in this encounter Care Teams Metal Tile Setter Relationship Specialty Start Date End Date Adi Costello MD PCP - General 06/17/10 09/21/11 [address] [place] [address] documented as of this encounter
--- OUTSIDE RECORDS SUMMARY | 2022-04-20 08:21 | XMS_ITS | Encounter Summary ---
:1945 Author Organization [facility] Address [facility] [place] [address] Care Team Providers Name Role Phone Unknown Primary Care Provider Unavailable Reason for Visit Reason Comments Skin Check Encounter Details Date Type Department Care Team Description 10/04/2012 Follow-Up Dermatology at Rigoberto Forman soriasis (Primary Dx); Abdelrahman HOOPER MD Neoplasm of unspecified nature of bone, soft tissue, and skin; [address] [facility] Skin lesion of chest wall; [place] [address] Seborrheic psoriasis- scalp and ingtergl uteal area [phone] [facility] [place], [place] [address] (Wo rk) Social History Tobacco [...] Rigoberto Albarran MD Section of Dermatology [facility] documented in this encounter Plan of Treatment Upcoming Encounters Date Type Specialty Care Team Description 05/28/2022 Appointment Cardiology Zulma Dolan MD [facility] [address] [place], [place] [address] (Wo rk) 05/28/2022 Laboratory Appointment Lab 05/28/2022 Office Visit Cardiology Zulma Dolan MD [facility] [place] [address] Liz Poole PA [facility] [place] [address] 06/10/2022 Office Visit Dermatology Laura Scherer MD [facility] DR TEJA GR-DERMAT [place], [place] [address] (Wo rk) documented [...] Method Time Signature Surgical CERNER Pathology ? [facility] Report ? Provider: ?? RIGOBERTO ALBARRAN III Pt. Name: ?? DON HOANG ?A ? Acc #: ?[id number] ? Pt. ? Col Date: ?? 3 [...] MD PATHOLOGY/CYTOLOGY ORDERABLE S Performing Organization Address City/[facility]/ZIP Code Phon e Number [address] [facility] Specimen to Pathology (NON-OR) (10/04/2012 9:55 AM EDT) Specimen Anatomical Collection Method Collection Time Receive d Time (Source) Location / / Volume Laterality AP Specimen 10/04/2012 9:55 AM 201 3 9:56 EDT AM EDT Narrative [facility] - 10/04/2012 9:56 AM E DT Specimen requisition ordered. ??Separate Pathology report to follow Rigoberto Albarran III, MD PATHOLOGY/CYTOLOGY ORDERABLE S Performing Organization Address City/[facility]/ZIP Code Phon e Number [address] [facility] documented in this encounter Visit Diagnoses Diagnosis Psoriasis - Primary Other psoriasis Neoplasm of unspecified nature of bone, soft tissue, and skin Skin lesion of chest wall Unspecified disorder of skin and subcuta neous tissue Seborrheic psoriasis- scalp and ingtergl uteal area Other psoriasis documented in this encounter Care Teams Confectionery Maker Relationship Specialty Start Date End Date Unknown PCP - General 10/04/12 01/24/13 None documented as of this encounter
--- OUTSIDE RECORDS SUMMARY | 2022-04-20 08:21 | XMS_ITS | Encounter Summary ---
:1945 Author Organization [facility] [place] [address] Care Team Providers Name Role Phone Angela Holliday APRN Primary Care Provider Encounter Details Date Type Department Care Team Description 01/25/2013 Clinical [place] [address] Social History Tobacco Use Types Packs/Day [...] Dolan MD [facility] [address] [place], [place] [address] (Wo rk) 05/28/2022 Laboratory Appointment Lab 05/28/2022 Office Visit Cardiology Zulma Dolan MD [facility] [place] [address] [facility] [place] [address] 06/10/2022 Office Visit Dermatology Laura Scherer MD [facility] DR TEJA GR-DERMAT [place], [place] [address] (Wo rk) documented as of this encounter Visit Diagnoses Not on filedocumented in this encounter Care Teams Bark Skinner Relationship Specialty Start Date End Date Angela Holliday APRN PCP - General 01/25/13 04/15/[address] [place] [address] documented as of this encounter
--- OUTSIDE RECORDS SUMMARY | 2022-04-20 08:21 | XMS_ITS | Encounter Summary ---
:1945 Author Organization [facility] [place] [address] Care Team Providers Name Role Phone Angela Holliday APRN Primary Care Provider Encounter Details Date Type Department Care Team Description 03/30/2013 Telephone General Surgery at [facility] Cliff Nevarez, [place] [address] Social History Tobacco Use Types Packs/Day [...] Zulma Dolan MD [facility] Dr [place], [place] [address] (Wo rk) 05/28/2022 Laboratory Appointment Lab 05/28/2022 Office Visit Cardiology Zulma Dolan MD [facility] [place] [address] Liz Poole PA [facility] [place] [place] [address] 06/10/2022 Office Visit Dermatology Laura Scherer MD [facility] DR TEJA GR-DERMAT [place], [place] [address] (Wo rk) documented as of this encounter Visit Diagnoses Not on filedocumented in this encounter Care Teams Alto Singer Relationship Specialty Start Date End Date Angela Holliday APRN PCP - General 01/25/13 04/15/[address] [place] [address] documented as of this encounter
--- OUTSIDE RECORDS SUMMARY | 2022-04-20 08:21 | XMS_ITS | Encounter Summary ---
:1945 Author Organization [facility] [place] [address] Care Team Providers Name Role Phone Angela Holliday APRN Primary Care Provider Encounter Details Date Type Department Care Team Description 03/28/2013 Surgery Main Operating Room Mesha Mcknight, THYROIDECTOMY, [facility] DR Siddiqui [place] [address] [place] [address] [phone] (Wo rk) Social History Tobacco Use Types [...] please call the General Surgery nurse at [phone], since this may mean that you need morecalcium. Follow-up Appointment: Will be scheduled with Dr. Mcknight in 6 weeks Date and time as well as any required labs will be mailed to you Please call [phone] to confirm date and time of your [...] by calcium supplementation. Phone number for questions: [phone] before 5 PM weekdays [phone] after 5 PM and on weekends/holidays Please follow up with Urology as per their recommendations for Bob removal AttachmentsThe following attachments cannot be sent through Care Everywhere. THYROIDECTOMY: WHAT TO EXPECT AT HOME (NEPALI)URINARY CATHETER CARE: AFTER YOUR VISIT (NEPALI)documented in this encounter Medications at Time of [...] is a 68 y.o. male presents to [facility] today for total thyroidectomy. See full [...] Operative Note Patient Name: Gregory Fatima : [id number] MR#: [id number] Case Date: 03/28/2013 Surgeon: Surgeon(s) and Role: [...] patient was extubated and taken to the [facility] in stable condition. At the end [...] Operative Note Patient Name: Gregory Fatima : [id number] MR#: [id number] Case Date: 03/28/2013 Surgeon: Surgeon(s) and Role: [...] Cardiology Zulma Dolan MD [facility] [place] [address] Liz Poole PA [facility] Cardiology [place] [address] 06/10/2022 Office Visit Dermatology Laura Scherer MD [facility] ER DR TEJA GR-DERMAT [place] [address] (Wo rk) documented as of this encounter [...] Organization Address City/State/[place] [address] CERNER MILLENNIUM (ABNORMAL) POCT [...] [facility] [address] CERNER MILLENNIUM (ABNORMAL) POCT [...] [facility]/ZIP Code Phon e Number [address] CERNER MILLENNIUM (ABNORMAL) [...] [facility]/ZIP Code Phon e Number [address] CERNER MILLENNIUM (ABNORMAL) [...] [facility]/ZIP Code Phon e Number [address] CERNER MILLENNIUM (ABNORMAL) [...] [facility]/ZIP Code Phon e Number [address] CERNER MILLENNIUM (ABNORMAL) [...] [facility]/ZIP Code Phon e Number [address] CERNER MILLENNIUM (ABNORMAL) [...] [facility]/ZIP Code Phon e Number [address] [facility] Specimen to Pathology (surgical or derm) (03/28/2013 [...] [facility]/ZIP Code Phon e Number [address] [facility] Pathology Addendum Report (03/28/2013 12:03 PM EDT) Component Value Ref Test Analysis Performed At [facility] gist Range Method Time Signature Addendum CERNER Report ? [facility] ? Provider: ?? MESHA MCKNIGHT Pt. Name: ?? GREGORY FATIMA ? Acc #: ?[id number] ?Pt. MRN: ?[id number] ? Col Date: ?? 03/28/2013 ?/Sex: ?1945,(68 [...] Organization Address City/State/[place] [address] [facility] Surgical Pathology Report (03/28/2013 12:03 PM EDT) Component Value Ref Test Analysis Performed At [facility] gist Range Method Time Signature Surgical [facility] Pathology ? [facility] Report ? Provider: ?? MESHA MCKNIGHT Pt. Name: ?? GREGORY FATIMA ? Acc #: ?[id number] ?Pt. MRN: ?[id number] ? Col Date: ?? 03/28/2013 ?/Sex: ?1945,(68 [...] Name: ?? GREGORY FATIMA ? Acc #: ?[id number] ?Pt. MRN: ?[id number] ? Col Date: ?? 03/28/2013 ?/Sex: ?1945,(68 years),Male ? Rec Date: ?? 03/28/2013 ?LOC: ?[facility] ? SURGICAL PATHOLOGY ? SECTIONS/PROCESSING: Settlement Clerk sections are subm itted. (R6) ? [...] Organization Address City/State/[place] [address] CERNER MILLENNIUM Frozen Section Report (03/28/2013 12:03 PM EDT) Component Value Ref Test Analysis Performed At [facility] gist Range Method Time Signature Frozen CERNER Section ? [facility] Report ? Provider: ?? MESHA MCKNIGHT Pt. Name: ?? GREGORY FATIMA ? Acc #: ?[id number] ?Pt. MRN: ?[id number] ? Col Date: ?? 03/28/2013 ?/Sex: ?1945,(68 [...] [facility]/[place] [address] CERNER MILLENNIUM POCT Glucose [...] [facility]/ZIP Code Phon e Number [address] CERNER MILLENNIUM Specimen to [...] [facility] [address] CERNER MILLENNIUM Antibody screen (03/28/2013 9:37 AM EDT) Analysis Performed At Patho logist Time Signature Ab Screen Negative CERNER Interp MILLENNIUM Expires at [id number] CERNER 238 on: MILLENNIUM Specimen Anatomical Collection Method Collection Time Receive d Time (Source) Location / / Volume Laterality Blood specimen 03/28/2013 9:37 AM 013 9:37 (specimen) EDT AM EDT Resulting Agency Comment Spec In Lab Mesha Mcknight MD BLOOD BANK ORDERABLES Performing Organization Address City/[facility]/[place] [address] [facility] GRISELDAENNIUM ABO/Rh Typing (03/28/2013 9:37 AM EDT) athologist Signature ABORh Type O Pos [facility] Specimen Anatomical Collection Method Collection Time Receive d Time (Source) Location / / Volume Laterality Blood specimen 03/28/2013 9:37 AM 013 9:37 (specimen) EDT AM EDT Resulting Agency Comment Spec In Lab Mesha Mcknight MD BLOOD BANK ORDERABLES Performing Organization Address City/[facility]/ZIP Code Phon e Number [address] [facility] Differential, Automated (03/28/2013 9:34 AM EDT) [...] City/State/ZIP Code Phon e Number [place] [phone]OS[address] CERNER MILLENNIUM (ABNORMAL) Basic [...] Organization Address City/State/[place] [address] CERNER MILLENNIUM (ABNORMAL) CBC [...] MPV 9.3 9.0 - 12.0 CERNER fL [facility] Specimen Anatomical Collection Method Collection Time Receive d Time (Source) Location / / Volume Laterality Blood specimen 03/28/2013 9:34 AM 013 9:38 (specimen) EDT AM EDT Resulting Agency Comment Spec In Lab Mesha Mcknight MD HEMATOLOGY ORDERABLES Performing Organization Address City/[facility]/ZIP Code Phon e Number [address] [facility] POCT Glucose (03/28/2013 9:17 AM EDT) [...] [facility]/ZIP Code Phon e Number [address] [facility] Specimen to Pathology (surgical or derm) (03/28/2013 8:55 AM EDT) Specimen Anatomical Collection Method Collection Time Receive d Time (Source) Location / / Volume Laterality AP Specimen 03/28/2013 8:55 AM 3 8:54 EDT AM EDT Narrative [facility] GRISELDA[facility]UM - 03/28/2013 8:55 AM E DT Specimen requisition ordered. ??Separate Pathology report to follow Mesha Mcknight MD PATHOLOGY/CYTOLOGY ORDERABLE S Performing Organization Address City/[facility]/ZIP Code Phon e Number [address] RAKESH WALKER documented in [...] RN) 0900 (Given - Provider: Radha Yao [facility], [facility]) 2.5 mg, Oral, DAILY, First dose [...] override documented in this encounter Care Teams Client Professional Relationship Specialty Start Date End Date Angela Holliday APRN PCP - General 01/25/13 04/15/15 [address] [place] [address] documented as of this encounter
--- OUTSIDE RECORDS SUMMARY | 2022-04-20 08:21 | XMS_ITS | Encounter Summary ---
:1945 Author Organization [facility] [place] [address] Care Team Providers Name Role Phone Angela Holliday APRN Primary Care Provider Encounter Details Date Type Department Care Team Description 03/15/2013 Telephone General Surgery at [facility] [place]ison [place], [place] [address] Social History Tobacco Use Types Packs/Day [...] Cardiology Zulma Dolan MD [facility] [place], [place] [address] (Wo rk) 05/28/2022 Laboratory Appointment Lab 05/28/2022 Office Visit Cardiology Zulma Dolan MD [facility] [place] [address] Liz Poole PA [facility] [place] [address] 06/10/2022 Office Visit Dermatology Laura Scherer MD [facility] DR TEJA GR-DERMAT [place], [place] [address] (Wo rk) documented as of this encounter Visit Diagnoses Not on filedocumented in this encounter Care Teams Head Miller Relationship Specialty Start Date End Date Angela Holliday APRN PCP - General 01/25/13 04/15/[address] [place] [address] documented as of this encounter
--- OUTSIDE RECORDS SUMMARY | 2022-04-20 08:21 | XMS_ITS | Encounter Summary ---
:1945 Author Organization [facility] [place] [address] Care Team Providers Name Role Phone Brody Berrios MD Primary Care Provider Reason for Visit Reason Comments Annual Exam Encounter Details Date Type Department Care Team Description 09/22/2011 Follow-Up Dermatology Arik Tipton Psoriasis (Primary Dx); [facility] MD Jorge Personal history of other malignant neop lasm of skin Drive [place] [id number] DERMATOLOGY DEPT . 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 His only complaints tail bone [...] changes: Arik Tipton MD Section of Dermatology [facility] documented in this encounter Plan of Treatment Upcoming Encounters Date Type Specialty Care Team Description 05/28/2022 Appointment Cardiology Zulma Dolan MD [facility] [address] [place], [place] [address] (Wo rk) 05/28/2022 Laboratory Appointment Lab 05/28/2022 Office Visit Cardiology Zulma Dolan MD [facility] [place] [address] Liz Poole PA [facility] [place] [address] 06/10/2022 Office Visit Dermatology Laura Scherer MD [facility] DR [address]DERMAT [place], [place] [address] (Wo rk) documented as of this encounter Visit Diagnoses Diagnosis Psoriasis - Primary Other psoriasis Personal history of other malignant neop lasm of skin documented in this encounter Care Teams Clinical Practitioner Relationship Specialty Start Date End Date Brody Berrios MD PCP - General 09/22/11 10/03/[address] [place] [address] documented as of this encounter
--- OUTSIDE RECORDS SUMMARY | 2022-04-20 08:21 | XMS_ITS | Encounter Summary ---
:1945 [place] [address] Care Team Providers Name Role Phone Holley Hollidayica STACIE Primary Care Provider Encounter Details Date Type Department Care Team Description 03/28/2013 - [facility] 03/29/2013 Barbara Gomes MD Dx) [facility] DR Siddiqui [place] [address] [phone] Social History Tobacco Use Types Packs/Day Years [...] takes 4 businessdays to be ready. Dr. Mcnkight will call you with this report as [...] please call the General Surgery nurse at [phone], since this may mean that you need morecalcium. Follow-up Appointment: Will be scheduled with Dr. Mcknight in 6 weeks Date and time as well as any required labs will be mailed to you Please call [phone] to confirm date and time of your [...] by calcium supplementation. Phone number for questions: [phone] before 5 PM weekdays [phone] after 5 PM and on weekends/holidays Please follow up with Urology as per their recommendations for Bob removal AttachmentsThe following attachments cannot be sent through Care Everywhere. THYROIDECTOMY: WHAT TO EXPECT AT HOME (CHILEAN)URINARY CATHETER CARE: AFTER YOUR VISIT (CHILEAN)documented in this encounter Medications at Time of [...] 03/28/2013 3:43 PM EDT [facility] Operative Note Patient Name: Gregory Fatima : [id number] MR#: [id number] Case Date: 03/28/2013 Surgeon: Surgeon(s) and Role: [...] Operative Note Patient Name: Gregory Fatima : [id number] MR#: [id number] Case Date: 03/28/2013 Surgeon: Surgeon(s) and Role: [...] MD [facility] er [address] [place] [address] (Wo rk) 05/28/2022 Laboratory Appointment Lab 05/28/2022 Office Visit Cardiology Zulma Dolan MD [facility] [place] [address] Liz Poole PA [facility] [place] [address] 06/10/2022 Office Visit Dermatology Laura Scherer MD [facility] ER DR TEJA GR[place]MAT [place] [address] (Wo rk) documented as of this encounter [...] [place] [address] CERNER MILLENNIUM (ABNORMAL) POCT [...] [facility]/[place] [address] CERNER MILLENNIUM (ABNORMAL) POCT [...] [facility]/ZIP Code Phon e Number [address] CERNER MILLENNIUM (ABNORMAL) POCT [...] [facility]/ZIP Code Phon e Number [address] CERNER MILLENNIUM (ABNORMAL) POCT [...] [facility]/ZIP Code Phon e Number [address] CERNER MILLENNIUM (ABNORMAL) POCT [...] [facility]/ZIP Code Phon e Number [address] CERNER MILLENNIUM (ABNORMAL) POCT [...] [facility]/ZIP Code Phon e Number [address] CERNER MILLENNIUM (ABNORMAL) POCT [...] [facility]/ZIP Code Phon e Number [address] [facility] Specimen to Pathology (surgical or derm) (03/28/2013 12:14 PM EDT) Specimen Anatomical Collection Method Collection Time Receive d Time (Source) Location / / Volume Laterality AP Specimen 03/28/2013 12:14 03/28/2013 PM EDT 12:14 PM EDT Narrative CERNER MILLENNIUM - 03/28/2013 12:14 PM EDT Specimen requisition ordered. ??Separate Pathology report to follow Mesha Mcknight MD PATHOLOGY/CYTOLOGY ORDERABLE S Performing Organization Address City/[facility]/ZIP Code Phon e Number [address] [facility] Pathology Addendum Report (03/28/2013 12:03 PM EDT) Component Value Ref Test Analysis Performed At [facility] gist Range Method Time Signature Addendum CERNER Report ? [facility] ? Provider: ?? MESHA MCKNIGHT Pt. Name: ?? GREGORY FATIMA ? Acc #: ?[id number] ?Pt. MRN: ?[id number] ? Col Date: ?? 03/28/2013 ?/Sex: ?1945,(68 [...] Address City/State/[place] [address] [facility] Surgical Pathology Report (03/28/2013 12:03 PM EDT) Component Value Ref Test Analysis Performed At [facility] gist Range Method Time Signature Surgical [facility] Pathology ? [facility] Report ? Provider: ?? MESHA MCKNIGHT Pt. Name: ?? GREGORY FATIMA ? Acc #: ?[id number] ?Pt. MRN: ?[id number] ? Col Date: ?? 03/28/2013 ?/Sex: ?1945,(68 [...] of hemorrhage and ? calcifications. ? [facility] ? Provider: ?? MESHA MCKNIGHT Pt. Name: ?? GREGORY FATIMA ? Acc #: ?[id number] ?Pt. MRN: ?[id number] ? Col Date: ?? 03/28/2013 ?/Sex: ?1945,(68 years),Male ? Rec Date: ?? 03/28/2013 ?LOC: ?[facility] ? SURGICAL PATHOLOGY ? SECTIONS/PROCESSING: Log Hauler sections are subm itted. (R6) ? B [...] Address City/State/[place] [address] CERNER MILLENNIUM Frozen Section Report (03/28/2013 12:03 PM EDT) Component Value Ref Test Analysis Performed At [facility] gist Range Method Time Signature Frozen CERNER Section ? [facility] Report ? Provider: ?? MESHA MCKNIGHT Pt. Name: ?? GREGORY FATIMA ? Acc #: ?[id number] ?Pt. MRN: ?[id number] ? Col Date: ?? 03/28/2013 ?/Sex: ?1945,(68 [...] MD PATHOLOGY/CYTOLOGY ORDERABLE S Performing Organization Address City/[facility]/[place] [address] CERNER MILLENNIUM POCT Glucose [...] [facility]/ZIP Code Phon e Number [address] CERNER MILLENNIUM Specimen to [...] MD PATHOLOGY/CYTOLOGY ORDERABLE S Performing Organization Address City/[facility]/Z[place] [address] CERNER MILLENNIUM Antibody screen (03/28/2013 9:37 AM EDT) Analysis Performed At Patho logist Time Signature Ab Screen Negative CERNER Interp MILLENNIUM Expires at [id number] CERNER 275 on: MILLENNIUM Specimen Anatomical Collection Method Collection Time Receive d Time (Source) Location / / Volume Laterality Blood specimen 03/28/2013 9:37 AM 013 9:37 (specimen) EDT AM EDT Resulting Agency Comment Spec In Lab Mesha Mcknight MD BLOOD BANK ORDERABLES Performing Organization Address City/[facility]/Z[place] [address] [facility] GRISELDAENNIUM ABO/Rh Typing (03/28/2013 9:37 AM EDT) athologist Signature ABORh Type O Pos [facility] Specimen Anatomical Collection Method Collection Time Receive d Time (Source) Location / / Volume Laterality Blood specimen 03/28/2013 9:37 AM 013 9:37 (specimen) EDT AM EDT Resulting Agency Comment Spec In Lab Mesha Mcknight MD BLOOD BANK ORDERABLES Performing Organization Address City/[facility]/ZIP Code Phon e Number [address] [facility] Differential, Automated (03/28/2013 9:34 AM [...] City/State/ZIP Code Phon e Number [place] [id number]OSPITAL LAB[address] CERNER MILLENNIUM (ABNORMAL) Basic [...] were not validated at [facility]. Results from pediatri c patients should be [...] Address City/State/[place] [address] CERNER MILLENNIUM (ABNORMAL) CBC [...] MPV 9.3 9.0 - 12.0 CERNER fL [facility] Specimen Anatomical Collection Method Collection Time Receive d Time (Source) Location / / Volume Laterality Blood specimen 03/28/2013 9:34 AM 013 9:38 (specimen) EDT AM EDT Resulting Agency Comment Spec In Lab Mesha Mcknight MD HEMATOLOGY ORDERABLES Performing Organization Address City/[facility]/ZIP Code Phon e Number [address] [facility] GRISELDATUCSON MED[facility] CENTERIUM POCT Glucose (03/28/2013 9:17 AM [...] [facility]/ZIP Code Phon e Number [address] [facility] Specimen to Pathology (surgical or derm) (03/28/2013 8:55 AM EDT) Specimen Anatomical Collection Method Collection Time Receive d Time (Source) Location / / Volume Laterality AP Specimen 03/28/2013 8:55 AM 3 8:54 EDT AM EDT Narrative [facility] GRISELDAENNIUM - 03/28/2013 8:55 AM E DT Specimen requisition ordered. ??Separate Pathology report to follow Mesha Mcknight MD PATHOLOGY/CYTOLOGY ORDERABLE S Performing Organization Address City/[facility]/ZIP Code Phon e Number [address] [facility] documented in this encounter Visit Diagnoses Diagnosis [...] at 1405, [place] Wed03/29/13 at 0214, MARUQES SOW: cabinet override documented in this encounter Care Teams Gear Repair Supervisor Relationship Specialty Start Date End Date Angela Holliday APRN PCP - General 01/25/13 04/15/15 [address] [place] [address] documented as of this encounter
--- OUTSIDE RECORDS SUMMARY | 2022-04-20 08:21 | XMS_ITS | Encounter Summary ---
:1945 Author Organization [facility] [place] [address] Care Team Providers Name Role Phone Angela Holliday APRN Primary Care Provider Reason for Referral Surgical (Routine) - Closed Specialty Diagnoses / Procedures Referred By Contact Refer red To Contact General Surgery Diagnoses Elijah Villagomez MD Colacchio, Thomas A, MD [address] [place] [address] [place] [address] [place] [address] Phone: Fax: Referral ID Status Reason Start Date Expiration Date Visits V isits Requested Authorized [id number] Closed Specialty 01/25/2013 07/24/2013 1 1 Service Requested Reason for Visit Reason Comments Thyroid Problem Encounter Details Date Type Department Care Team Description 01/25/2013 Office Visit Endocrinology at [facility] Elijah Fuentes Goiter (Primary Dx) [facility] [address] [place] [phone] [place] [address] [phone] Social History Tobacco Use Types Packs/Day Years [...] History 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 All [...] the thyroid gland were obtained using a SonSkicka Tårtaaxx and an HFL38/13-6 broadband linear array transducer. [...] Zulma Dolan MD [facility] [place], [place] [address] (Wo rk) 05/28/2022 Laboratory Appointment Lab 05/28/2022 Office Visit Cardiology Zulma Dolan MD [facility] [place] [address] Liz Poole PA [facility] [place] [address] 06/10/2022 Office Visit Dermatology Laura Scherer MD [facility] DR TEJA GR-DERMAT [place], [place] [address] (Wo rk) Scheduled Referrals Name [...] Resulting Agency Comment Spec In Lab Elijah Eilas MD CHEMISTRY ORDERABLES Performing Organization Address City/State/[place] [address] CERNER MILLENNIUM documented in this encounter Visit Diagnoses Diagnosis Goiter - Primary Goiter, unspecified documented in this encounter Care Teams Biomedical Engineering Director Relationship Specialty Start Date End Date Angela Holliday APRN PCP - General 01/25/13 04/15/[address] [place] [address] documented as of this encounter
--- OUTSIDE RECORDS SUMMARY | 2022-04-20 08:21 | XMS_ITS | Encounter Summary ---
:1945 [place] [address] Care Team Providers Name Role Phone MiyaLokeshAngela STACIE Primary Care Provider Encounter Details Date Type Department Care Team Description 03/28/2013 Anesthesia Event Main Operating Room Meredith Calvert MD [facility] [place] [address] [facility] Nolvia Riojas PA [facility] [place] [place] [address] [place] [phone] Anesthesia Record Procedure Summary Procedure Name [...] Dolan MD [facility] [place], [place] [address] (Wo rk) 05/28/2022 Laboratory Appointment Lab 05/28/2022 Office Visit Cardiology Zulma Dolan MD [facility] [place] [address] Liz Poole PA [facility] [place] [address] 06/10/2022 Office Visit Dermatology Laura Scherer MD [facility] [address] [place], [place] [address] (Wo [...] documented in this encounter Care Teams Methods Study Analyst Relationship Specialty Start Date End Date Angela Holliday APRN PCP - General 01/25/13 04/15/[address] [place] [address] documented as of this encounter
--- OUTSIDE RECORDS SUMMARY | 2022-04-20 08:22 | XMS_ITS | Clinical Summary ---
:1945 Author Organization [facility] Address [address] [place] [address] Care Team Providers Name Role Phone Lovely [...] i n the results section. COVID-19 TEST [facility] Today 01/27/2022 14:30 LAB PCR EDT COVID-19 TESTING Routine 01/27/2022 14:30 Results for this EDT procedure are i n the results section. from Last 3 Months Results PSA TOTAL, DIAGNOSTIC (02/20/2022 9:04 EDT) Pathologist Sig nature PSA 2.7 <=6.5 ng/mL [facility] Specimen Blood - Venous blood (substance) Narrative [facility] - 02/20/2022 18:17 EDT NOTE: Serum PSA concentration should not be in terpreted as absolute evidence for the presence or absence of malignant disease. Assayed on Siemens [employer] Centaur XPT usi ng chemiluminescent technology.??Values obtained by using different assay methods cannot be used interchangeably. Performing Organization Address City/State/ZIP Code Phon e Number [facility] [address] [place] [address] SERVICES COVID-19 TEST [facility] LAB PCR (01/27/2022 14:30 EDT) Specimen Swab Performing Organization Address City/[facility]/ZIP Code Phon e Number [facility] [address] [place] [address] SERVICES COVID-19 TESTING (01/27/2022 14:30 EDT) COVID-19 rt-PCR Negative Negative [facility] MEDICAL Result Comment: CENTER LABORATORY This [...] performed using the meliton SARS-CoV-2 assay ([employer] on the Meliton 6800 System Performing Lab Meliton [address] [facility] Lab [facility] Specimen Swab Performing Organization Address City/[facility]/ZIP Code Phon e Number [facility] [address] [place] [address] SERVICES from Last 3 Months Care Teams Maintenance Service Supervisor Relationship Specialty Start Date End Date Lovely Vicente MD PCP - General 07/13/14
--- OUTSIDE RECORDS SUMMARY | 2022-04-20 08:22 | XMS_ITS | Encounter Summary ---
:1945 Author Organization [facility] Address [address] [place] [address] Care Team Providers Name Role Phone Lovely Vicente MD Primary Care Provider Encounter Details Date Type Department Care Team Description 01/17/2021 Lab Requisition [facility] Outr Resulting Lab, Pathology & Laboratory Provider [facility] [address] [place] [address] Social History Tobacco Use Types Packs/Day Years [...] nature PSA 2.9 0.0 - 6.5 ng/mL [facility] Specimen Blood - Venous blood (substance) Narrative [facility] - 01/17/2021 17:46 EDT NOTE: Serum PSA concentration should not be in terpreted as absolute evidence for the presence or absence of malignant disease. Assayed on [employer] Centaur XPT usi ng chemiluminescent technology.??Values obtained by using different assay methods cannot be used interchangeably. Performing Organization Address City/State/ZIP Code Phon e Number [facility] [address] [place] [address] SERVICES documented in this encounter Visit Diagnoses Not on filedocumented in this encounter Care Teams Water Operator Relationship Specialty Start Date End Date Lovely Vicente MD PCP - General 07/13/14 documented as of this encounter
--- OUTSIDE RECORDS SUMMARY | 2022-04-20 08:22 | XMS_ITS | Encounter Summary ---
:1945 Author Organization [facility] Address [address] [place] [address] Care Team Providers Name Role Phone Lovely Vicente MD Primary Care Provider Encounter Details Date Type Department Care Team Description 08/11/2019 Lab Requisition [facility] Unknown, Provider, Pathology & Laboratory [facility] [address] [facility] [place] [address] Social History Tobacco Use Types Packs/Day Years [...] Pathologist Sig nature Salmonella PCR Negative Negative [facility] Shigella/Enteroinvasive Negative Negative [facility] R E. coli LABORATORY SERVICES HN LAB CAMPYLOBACTER PCR Negative Negative [facility] ER LABORATORY SERVICES Shiga Toxin PCR Negative Negative [facility] Specimen Feces - Specimen from rectum (specimen) Performing Organization Address City/State/ZIP Code Phon e Number [facility] [address] [place] [address] SERVICES documented in this encounter Visit Diagnoses Not on filedocumented in this encounter Care Teams Prepared Foods Supervisor Relationship Specialty Start Date End Date Lovely Vicente MD PCP - General 07/13/14 documented as of this encounter
--- OUTSIDE RECORDS SUMMARY | 2022-04-20 08:22 | XMS_ITS | Encounter Summary ---
:1945 Author Organization [facility] Address [address] [place] [address] Care Team Providers Name Role Phone Lovely Vicente MD Primary Care Provider Encounter Details Date Type Department Care Team Description 04/04/2021 Lab Requisition [facility] Outr Resulting Lab, Pathology & Laboratory Provider [facility] [address] [place] [address] Social History Tobacco Use Types Packs/Day Years [...] (04/03/2021 12:15 EDT) Giardia and Cryptosporidium Cryptosporidium [facility] Cryptosporidium Antigen Neg and Antigen Neg and CENTER Giardia Antigen Neg Giardia Antigen Neg LABORATORY SERVICES Specimen Feces - Specimen from rectum (specimen) Performing Organization Address City/State/ZIP Code Phon e Number [facility] [address] [place] [address] SERVICES documented in this encounter Visit Diagnoses Not on filedocumented in this encounter Care Teams Pressroom Supervisor Relationship Specialty Start Date End Date Lovely Vicente MD PCP - General 07/13/14 documented as of this encounter
--- OUTSIDE RECORDS SUMMARY | 2022-04-20 08:22 | XMS_ITS | Encounter Summary ---
:1945 Author Organization [facility] Address [address] [place] [address] Care Team Providers Name Role Phone Unknown, Provider Primary Care Provider Encounter Details Date Type Department Care Team Description 03/05/2014 Results Only [facility] Eris Taylor MD Laboratory Services - [address] [place] [address] [place] [address] [phone] Social History Tobacco Use Types Packs/Day Years [...] ? DON HOANG ? Accession #: ? [id number] ? : ? 1945 (Age: 68) ??M [...] e Number [facility] [address] [place] [address] SERVICES [facility] [address] [place] [address] documented in this encounter Visit Diagnoses Not on filedocumented in this encounter Care Teams Recreational Sports Director Relationship Specialty Start Date End Date Unknown, Provider, PCP - General 03/07/14 07/12/14 documented as of this encounter
--- OUTSIDE RECORDS SUMMARY | 2022-04-20 08:22 | XMS_ITS | Encounter Summary ---
:[address] [facility] Address [address] [place] [address] Care Team Providers Name Role Phone Unknown, Provider Primary Care Provider Encounter Details Date Type Department Care Team Description 07/11/2014 Hospital Encounter [facility] Unknown, Provider, [facility] [address] [place] [address] [place] [address] (Work) [phone] Social History Tobacco Use Types Packs/Day Years Used Date Never Assessed Sex Assigned at Date Recorded Not on file documented as of this encounter Discharge Disposition Disposition Code Departure Means Destination Home or Self Prison documented in this encounter Plan of Treatment Not on filedocumented as of this encounter Visit Diagnoses Not on filedocumented in this encounter Care Teams Night Baker Relationship Specialty Start Date End Date Unknown, Provider, PCP - General 03/07/14 07/12/14 documented as of this encounter
--- OUTSIDE RECORDS SUMMARY | 2022-04-20 08:22 | XMS_ITS | Encounter Summary ---
:1945 Author Organization [facility] Address [address] [place] [address] Care Team Providers Name Role Phone Unavailable Primary Care Provider Unavailable Encounter Details Date Type Department Care Team Description 03/05/2014 Hospital Encounter [facility] Unknown, Provider, [facility] [address] [facility] [phone] [place] [address] (Work) [phone] Social History Tobacco Use Types Packs/Day Years [...]
--- OUTSIDE RECORDS SUMMARY | 2022-04-20 08:22 | XMS_ITS | Encounter Summary ---
:1945 Author Organization [facility] Address [address] [place] [address] Care Team Providers Name Role Phone Lovely Vicente MD Primary Care Provider Encounter Details Date Type Department Care Team Description 04/04/2021 Lab Requisition [facility] Outr Resulting Lab, Pathology & Laboratory Provider [facility] [address] [place] [address] Social History Tobacco Use Types [...] Pathologist Sig nature Salmonella PCR Negative Negative [facility] Shigella/Enteroinvasive Negative Negative [facility] SERVICES HN LAB CAMPYLOBACTER PCR Negative Negative [facility]ORY SERVICES Shiga Toxin PCR Negative Negative [facility] Specimen Feces - Specimen from rectum (specimen) Performing Organization Address City/State/ZIP Code Phon e Number [facility] [address] [place] [address] SERVICES documented in this encounter Visit Diagnoses Not on filedocumented in this encounter Care Teams Commissioning Manager Relationship Specialty Start Date End Date Lovely Vicente MD PCP - General 07/13/14 documented as of this encounter
--- OUTSIDE RECORDS SUMMARY | 2022-04-20 08:22 | XMS_ITS | Encounter Summary ---
:1945 Author Organization [facility] Address [address] [place] [address] Care Team Providers Name Role Phone Lovely Vicente MD Primary Care Provider Encounter Details Date Type Department Care Team Description 02/20/2022 Lab Requisition [facility] Outr Resulting Lab, Pathology & Laboratory Provider [facility] [address] [place] [address] Social History Tobacco Use Types Packs/Day Years [...] 2.7 <=6.5 ng/mL [facility] Specimen Blood - Venous blood (substance) Narrative [facility] - 02/20/2022 18:17 EDT NOTE: Serum PSA concentration should not be in terpreted as absolute evidence for the presence or absence of malignant disease. Assayed on [employer] Centaur XPT usi ng chemiluminescent technology.??Values obtained by using different assay methods cannot be used interchangeably. Performing Organization Address City/State/ZIP Code Phon e Number [facility] [address] [place] [address] SERVICES documented in this encounter Visit Diagnoses Not on filedocumented in this encounter Care Teams News Video Editor Relationship Specialty Start Date End Date Lovely Vicente MD PCP - General 07/13/14 documented as of this encounter
--- OUTSIDE RECORDS SUMMARY | 2022-04-20 08:22 | XMS_ITS | Encounter Summary ---
:[address] [facility] Address [address] [place] [address] Care Team Providers Name Role Phone Lovely Vicente MD Primary Care Provider Encounter Details Date Type Department Care Team Description 01/01/2020 Lab Requisition [facility] Outr Resulting Lab, Pathology & Laboratory Provider [facility] [address] [place] [address] Social History Tobacco Use Types Packs/Day Years [...] nature PSA 2.1 0.0 - 6.5 ng/mL [facility] SERVICES Specimen Blood - Venous blood (substance) Narrative [facility] - 01/02/2020 10:40 EDT NOTE: Serum PSA concentration should not be in terpreted as absolute evidence for the presence or absence of malignant disease. Assayed on [employer] Centaur XPT usi ng chemiluminescent technology.??Values obtained by using different assay methods cannot be used interchangeably. Performing Organization Address City/State/ZIP Code Phon e Number [facility] [address] [place] [address] SERVICES documented in this encounter Visit Diagnoses Not on filedocumented in this encounter Care Teams Cotton Gin Yard Supervisor Relationship Specialty Start Date End Date Lovely Vicente MD PCP - General 07/13/14 documented as of this encounter
--- OUTSIDE RECORDS SUMMARY | 2022-04-20 08:23 | XMS_ITS ---
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 Problem Critical ischemia I99.8 Active of lower extremity Problem Atherosclerosis I70.90 Active 3871 6007 Problem Type 2 diabetes E11.628 Active mellitus with other skin complications Problem 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 40 ; Acquired deformi ty of right foot M21.961 ; L luis term current use of i nsulin Z79.4 ; History of art erial bypass of lower extremi ty Z95.828 ; Atherosclerosis I70.90 and History of Lisfr anc amputation of fo ot Z89.439 [facility] Feb, Type 2 diabet es mellitus [address] [place], [place] with diabe tic neuropathy, [address] unspecified E11. 40 ; Acquired deformi ty of right foot M21.961 ; L luis term current use of i nsulin Z79.4 ; History of art erial bypass of lower extremi ty Z95.828 ; Atherosclerosis I70.90 and History of Lisfr anc amputation of fo ot Z89.439 [facility] November, [place] [address] [facility] [facility] November, Type 2 [place] [address] with diabeti c neuropathy, unspecified E11. 40 ; Acquired deformi ty of right foot M21.961 ; L luis term current use of i nsulin Z79.4 ; History of art erial bypass of lower extremi ty Z95.828 ; Atherosclerosis I70.90 and History of Lisfr anc amputation of fo ot Z89.439 [facility] 10 Aug, 2019 Type 2 diabetes [place] [address] with other skin complications E1 1.628 ; Tinea pedis of l eft foot B35.3 ; Type 2 d iabetes mellitus with di abetic neuropathy, unsp ecified E11.40 ; Acquire d deformity of right foot M2 1.961 ; USP current use of insulin Z79.4 ; History of arterial bypass of lower extremity Z95.828 and Athe rosclerosis I70.90 [facility] Jun, [place] [address] [address] Jun, [place] [address] [address] Jun, Type 2 diabet es mellitus [place] with other skin [address] complications E1 1.628 ; Acquired deformi ty of right foot M21.961 ; T ype 2 diabetes mellitu s with diabetic neuropa thy, unspecified E11. 40 ; salvage determiner current use of insulin Z79.4 and Histor y of arterial bypass of lower extremity Z95.82 8 [facility] Feb, Type 2 [place] [address] with other s kin complications E1 1.628 ; Acquired deformi ty of right foot M21.961 ; T ype 2 diabetes mellitu s with diabetic neuropa thy, unspecified E11. 40 ; USP current use of insulin Z79.4 and Histor y of arterial bypass of lower extremity Z95.82 8 [facility] November, Tinea pedis o f left foot [place], [place] B35.3 ; Ty pe 2 diabetes [address] mellitus with ot her skin complications E1 1.628 ; Acquired deformi ty of right foot M21.961 ; T ype 2 diabetes mellitu s with diabetic neuropa thy, unspecified E11. 40 ; salvage determiner current use of insulin Z79.4 and Histor y of arterial bypass of lower extremity Z95.82 8 [facility] November, [place] [address] [address] Aug, Type 2 diabet es mellitus [place] with diabe tic neuropathy, [address] unspecified E11. 40 ; Acquired deformi ty of right foot M21.961 ; P eripheral arterial disease I73.9 ; History of arter ial bypass of lower extremi ty Z95.828 ; USP curren t use of insulin Z79.4 an d History of Lisfranc amputat ion of foot Z89.439 UNKNOWN Jul, [facility] 11 Jun, 2018 Type 2 [place]ete [place] [address] with diabeti c neuropathy, unspecified E11. [address] [facility] Apr, Edema of both legs R60.0 ; [place] Acquired d eformity of right 28872 foot M21.961 ; P eripheral arterial disease I73.9 ; History of arter ial bypass of lower extremi ty Z95.828 ; salvage determiner curren t use of insulin Z79.4 an d Type 2 diabetes mellitu s with diabetic neuropa thy, unspecified E11. [address] [facility] Mar, [place] [address] [address] Mar, Edema of both legs R60.0 ; [place] Acquired d eformity of right [address] foot M21.961 ; P eripheral arterial disease I73.9 ; History of arter ial bypass of lower extremi ty Z95.828 ; salvage determiner curren t use of insulin Z79.4 an d Type 2 diabetes mellitu s with diabetic neuropa thy, unspecified E11. 40 [facility] Feb, Edema of both legs R60.0 ; [place] [address] Ulcer of lef t calf, limited to breakdown of skin L97.221 ; Acquired defor mity of right foot M21.9 61 ; Peripheral arter ial disease I73.9 ; History of arterial bypass of lower extremity Z95.828 ; Long t erm current use of insulin Z 79.4 and Type 2 diabetes mellitus with diabetic ne uropathy, unspecified E11. 40 [facility] 1 Feb, [place] [address] [facility] Feb, Edema of both legs R60.0 ; [place] [address] Ulcer of rig ht calf, limited to [...] 40 [facility] Feb, [place] [address] [facility] [address] [facility] [address] Feb, [place] [address] [facility] [address] [facility] [address] Jan, [place] [address] [facility] [address] [facility] [facility] [facility] Jan, [place] [address] [facility] [address] [facility] [facility] Jan, [place] [address] [facility] [address] [facility] [facility] [facility] [address] Jan, [place] [address] [facility] [address] [facility] [address] Jan, [place] [address] [facility] [address] [facility] [facility] [address] Dec, [place] [address] [facility] [address] [facility] [address] Dec, [place] [address] [facility] [address] [facility] [address] Dec, [place] [address] [facility] [address] [facility] Dec, [place] [address] [facility] Dec, [place] [address] [facility] [address] [facility] [facility] [address] Dec, [place] [address] [facility] November, [place] [address] [facility] November, [place] [address] [facility] November, [place] [address] [facility] November, [place] [address] [facility] [place] [address] [facility] November, [place] [address] UNKNOWN November, [facility] [address] November, OFFICE [place] [address] [facility] November, [place] [address] [facility] Oct, [place] [address] [facility] Oct, [place] [address] [facility] Oct, [place] [address] [facility] [address] 18 Oct, 2017 [place] [address] [facility] 16 Oct, 2017 [place] [address] [facility] [facility] [address] [place] 16 Oct, 2017 [facility] [address] [facility] Oct, [place] [address] [facility] Oct, [place] [address] [facility] Oct, [place] [address] [facility] [address] Sep, [facility] [address] [facility] Sep, [place] [address] [facility] [address] Sep, [place] [address] [facility] [address] [place] Sep, [place] [address] [facility] [address] [place] Sep, [place] [address] [facility] [address] Sep, Critical ischemi a of lower [place] [address] extremity I 99.8 ; Local infection of the skin and subcutaneous tis lindsey, unspecified L08. 9 and Type 2 diabetes mellitu s with other skin complicatio ns E11.628 [facility] Sep, [place] [address] [facility] [address] [facility] [address] Sep, [place] [address] [facility] [address] [facility] [facility] [address] Sep, [place] [address] [facility] [address] [facility] 14 Sep, [address] [place] [address] [facility] Sep, [place] [address] [facility] Sep, [place] [address] [facility] Sep, [place] [address] [facility] Sep, [place] [address] [facility] [address] [facility] [address] Aug, [place] [address] [facility] [address] Aug, [facility] [address] [facility] [address] [place] Aug, [place] [address] [facility] Aug, [place] [address] [facility] Aug, [place] [address] [facility] Aug, [place] [address] [facility] Aug, Pre-op exam Z01.818 [place] [address] [facility] Aug, [place] [address] [facility] Aug, [place] [address] [facility] Aug, [place] [address] IMMUNIZATIONS No Known Immunizations SOCIAL HISTORY Qualifiers [...] subcutaneously 22 24h Active units/mL daily Pen Hollis Active Ciclopirox Externally Twice 1 application 12h [...] For Report MR Lower Ext R w/o ([id number]) 2017-09-16 See Below For Report CR C-ARM [...] A1c 03/04/18 - 6.7, [facility] [facility], f/u - bilateral leg edema, Pt [...] at wound center,lab work done 03/07/2018 @ [facility], Patient came in with tubigrip bilateral , wound clin est, wound clinest, Wound CTR-follow up, Wound CTR-follow up, Wound CTR-follow up, Peer to Peer w/ Dr. Espino, Wound CTR-follow up, Wound CTR-follow up, Cooperative Education Director Documentation, LAB, Wound CTR-follow up, Wound CTR-follow up, Wound CTR-follow up, Wound CTR-follow up, LAB, LAB, Wound CTR- follow up, Wound CTR-follow up, Wound CTR-follow up, Cooperative Education Director Documentation, [facility], Wound CTR-follow up, Wound CTR-follow up, Pull PICC Line, Wound CTR-follow up, Wound CTR-follow up, LAB, Still taking doxycycline 100mg? , Wound CTR-follow up, Wound CTR-follow up, Wound CTR-follow up, Cooperative Education Director Documentation, Wound CTR-follow up, Wound CTR-follow up, Call back, Cooperative Education Director Documentation, Cooperative Education Director Documentation, Cooperative Education Director Documentation, Wound CTR-follow up, WCC, Wound CTR-follow up, Wound CTR-follow up, labs, D/C planning, bailey smetatarsal amputation of right foot, LAB, LAB, Wound CTR-NEW Insurance Providers [facility] Health Member Patient Patient Patient Patient Patient Subscriber Subscriber Subscriber Group Insurance Plan Plan Plan Plan ID Relationship Address Phone Name Date of ID Name Date of No Type Insurance Insurance Insurance Coverage to Subscriber Address Phone Name Dates MEDICARE 3000 [address] MEDICARE self [place] [id number] [facility] [id number] OTHER [address] [place] [phone] OTHER [place]REG[place] [id number] GRANT 1^MAIN LIBERTARIAN [facility] PAYOR [id number] SELF PAY [address] SELF PAY self [place] [id number] AFTER BLUE [place] AFTER BLUE [facility] [address] [address] S-BLUE [phone] S-BLUE [place] [id number] [address] [address] [place] [address] [place]
--- OUTSIDE RECORDS SUMMARY | 2022-04-22 08:15 | XMS_ITS | Encounter Summary ---
:1945 [place] [address] Care Team Providers Name Role Phone Lovely Vicente MD Primary Care Provider Reason for Visit Reason Onset Date Comments Follow-up 03/06/2022 Dave Bueno Encounter Details Date Type Department Care Team Description 03/06/2022 Telephone Cardiology at [facility] Martha Comer, Follow-up ([facility] Start) [place] [address] Social History Tobacco Use Types Packs/Day [...] MD [facility] [address] [place], [place] [address] (Wo rk) 05/28/2022 Laboratory Appointment Lab 05/28/2022 Office Visit Cardiology Zulma Dolan MD [facility] [place] [address] Liz Poole PA [facility] [place] [address] 06/10/2022 Office Visit Dermatology Laura Scherer MD [facility] [address], [place] [address] (Wo rk) documented as of [...] on filedocumented in this encounter Care Teams Mutuel Department Manager Relationship Specialty Start Date End Date Lovely Vicente MD PCP - General 04/16/[address] [place] [address] documented as of this encounter
--- OUTSIDE RECORDS SUMMARY | 2022-04-22 08:15 | XMS_ITS | Encounter Summary ---
:1945 Author Organization [facility] Address [facility] [place] [address] Care Team Providers Name Role Phone Lovely Vicente MD Primary Care Provider Reason for Visit Reason Comments Prior Authorization Entresto 24-26mg tablets Encounter Details Date Type Department Care Team Description 02/20/2022 Specialty [place] [facility] [place] Smith Prior Authorization [facility] J (Entresto 24-26mg Drive tablets) [place] [id number] Social History Tobacco Use Types Packs/Day Years [...] Don Fatima Patient : 1945 Patient Address: [address] [place] [address] [place] [address] (home) Medication Name: ENTRESTO 24 MG-26 MG TABLET Medication ID: [id number] Patient [place] [facility] [place] [facility] Patient Location Comment: Medication Strength Frequency Requested: Entresto 24-26mg tablets / One tablet twice daily Qty/Day Supply: New Start: New to Therapy Diagnosis & ICD-10 Code: Chronic systolic heart failure, I50.22 Subscriber Insurance: [employer] [facility] Subscriber Insurance Comment: Fax: Physician: LIZ CARRERA Physician Comment : PA Status: NO PA REQUIRED Insurance mandated Pharmacy: Unknown [facility] at [facility]: Yes Insurance requirements/notes: None Copay: $119.01 (goes to coverage gap/odalys monteiro) Copay assistance: [employer] Copay assistance comment: If cost isn't affordable, then we'll suggest enrollment in the currently open [facility] Heart Failure zoila, which provides up to $1000 in copay assistance. If zoila closes, or doesn't work out, then the patient can attempt enrollment in the director learning services assistance program, the [employer] Patient Assistance [employer] (NPAF). At which point we'd refer to [facility] for assistance with enrollment. Pharmacy staff [...] Dolan MD [facility] [address] [place] [address] (Wo rk) 05/28/2022 Laboratory Appointment Lab 05/28/2022 Office Visit Cardiology Zulma Dolan MD [facility] [place] [address] Liz Carrera PA [facility] Cardiology [place] [address] 06/10/2022 Office Visit Dermatology Laura Scherer MD [facility] ER [address], [place] [address] (Wo rk) documented as of this encounter Visit Diagnoses Not on filedocumented in this encounter Care Teams Buckler And Lacer Relationship Specialty Start Date End Date Lovely Vicente MD PCP - General 04/16/[address] [place] [address] documented as of this encounter
--- OUTSIDE RECORDS SUMMARY | 2022-04-22 08:15 | XMS_ITS | Encounter Summary ---
:1945 Author Organization [facility] Address [facility] [place] [address] Care Team Providers Name Role Phone Lovely Vicente MD Primary Care Provider Reason for Visit Auth/Cert Specialty Diagnoses / Procedures Referred By Contact Refer red To Contact Diagnoses ASCVD (arteriosclerotic cardiovascular disease) [I25.10] Vitaliy Nobles MD [facility] Procedures PRO PERC TRLUML CORONARY STENT W/ANGIO ONE ART/BRANCH CARDIAC CATHETERIZATION STENT PLACEMENT-SINGLE MAJOR CORONARY ARTERY OR BRANCH [facility] [place] [address] Referral ID Status Reason Start Date Expiration Date Visits Requ ested Visits Authorized [id number] 1 1 Encounter Details Date Type Department Care Team Description 01/30/2022 Surgery Basic Combatant Swimmer Asa Coulter MD CARDIAC CATHETERIZATION [facility] [place] [address] [place] [address] [phone] (Wo rk) Social History Tobacco Use Types [...] and Clopidogrel. Please follow up with your machine package sealer in the next 4-6 weeks. We have made a referral to cardiac rehab. Please see the attached instructions regarding care to your right wrist access site. AttachmentsThe following attachments cannot be sent through Care Everywhere. Coronary Angiogram: Post-op (Macanese)documented in this encounter Medications at Time of [...] RN - 01/30/2022 4:[address] [facility] Short Stay Unit Discharge Note All [...] recent PCI presenting for staged PCI to [facility]. The pt states he has [...] recent PCI presenting for staged PCI to [facility]. The indications, expected benefits, and [...] plan: moderate/conscious sedation - FULL CODE Eddi Elizabeht Jr, MD 01/30/2022 7:42 AM documented in this encounter Miscellaneous Notes Consult Note - Rebeka Deluca RN - 01/30/2022 2:57 PM EDT Don Fatima was seen today by Cardiac Rehabilitation for: SD/PCI Activity evaluation - Per SSU team Don has history of prior TX and CABG. I had referred him to cardiac rehab at [facility] last month per HF team. He was waiting until this intervention before starting the program. Reviewed managing angina /use of sl nitroglycerin. Given parameters for home exercise. 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 We discussed short walks several times per day. Will send [facility] his discharge summary from this admission. The patient should be contacted by the Program within 1- 2 weeks from discharge. Brief Op Note - Vitaliy Nobles MD - 01/30/2022 10:19 AM EDT Images from the original note were not included. [facility] [place] [address] CORONARY ANGIOGRAM AND PERCUTANEOUS CORONARY INTERVENTION REPORT Patient: Don Fatima : 1945 MR number: [id number] Date of Service: 01/30/2022 Automobile Body Repair Chief: Vitaliy Nobles MD Fellow: KEYON Elizabeth INDICATION: [...] a long 2.0 x 26 mm HARDEEP Shawnee TUCKER stent and positioned it at the [...] using a 2.0 x 26 mm HARDEEP [place] TUCKER stent. This completes the revascularization ofall [...] [facility] er [address] [place] [address] (Wo rk) 05/28/2022 Laboratory Appointment Lab 05/28/2022 Office Visit Zulma Garrison MD [facility] [place] [address] Liz Poole PA [facility] [place] [address] 06/10/2022 Office Visit Dermatology Laura Scherer MD [facility] ER DR [address] [facility] [place] [address] (Wo rk) Scheduled Orders Name Type [...] [facility] 6.10 [facility] x10(3)/[facility] LABORATORY Lymphocytes % 16.3 % [facility] LABORATORY Lymphocytes Abs 0.9 0.9 - 3.2 [facility] x10(3)/[facility] LABORATORY Monocytes % 10.0 % [facility] LABORATORY Monocyte Abs 0.6 0.3 - 0.9 [facility] x10(3)/[facility] LABORATORY Eosinophils % 0.5 % [facility] LABORATORY Eosinophils Abs 0.0 0.0 - 0.4 [facility] x10(3)/[facility] LABORATORY Basophils % 0.5 % [facility] LABORATORY Basophils Abs 0.0 0.0 - 0.1 [facility] x10(3)/[facility] LABORATORY Immature Gran % 0.90 % [...] Organization Address City/State/[place] [address] (ABNORMAL) Hemogram (01/30/2022 2:12 PM EDT) Analysis Performed At Patho logist Time Signature WBC 5.5 4.0 - 9.5 [facility] x10(3)/[facility] LABORATORY RBC 4.30 (L) 4.58 - [facility] 5.54 [facility] x10(6)/[facility] LABORATORY Hemoglobin 12.7 (L) 13.7 - [place] 16.5 g/dL [facility] LABORATORY Hematocrit 39.4 (L) 40.5 - [place] 48.5 % [facility] LABORATORY MCV 91.6 82.9 - [place] 93.1 [facility] LABORATORY MCH 29.5 27.5 - [place] 32.1 pg [facility] LABORATORY MCHC 32.2 32.0 - [place] 35.7 g/dL [facility] LABORATORY Platelets 172 145 - 357 [facility] x10(3)/[facility] LABORATORY RDWSD 54.5 (H) 36.0 - [place] 45.0 [facility] LABORATORY RDWCV 16.4 (H) 11.4 - [place] 13.8 % [facility] LABORATORY MPV 9.2 7.6 - 12.9 [place] [facility] LABORATORY nRBC % Auto 0.0 % [facility] LABORATORY nRBC Abs Auto 0.000 0.000 - [place] 0.000 [facility] x10(3)/[facility] LABORATORY Specimen Anatomical Collection Method Collection Time Receive d Time (Source) Location / / Volume Laterality Blood 01/30/2022 2:12 PM 2 2:37 EDT PM EDT Resulting Agency Comment Spec In Lab Eddi Elizabeth Jr., MD HEMATOLOGY ORDERABLES Performing Organization Address City/State/[place] [address] (ABNORMAL) Basic Metabolic Panel (non-fasting) (01/30/2022 2:12 PM EDT) athologist Signature Glucose Lvl 163 65 - 199 [facility]dL [facility] LABORATORY Comment: Diabetes: >=200 mg/dL [...] Organization Address City/State/[place] [address] POCT Glucose (01/30/2022 1:41 PM EDT) athologist Signature POC Glucose 148 65 - 199 [facility] mg/dL [facility] LABORATORY Comment: Supplemental ranges: <140 mg/dL before meals <180 mg/dL all other times of the day Specimen Anatomical Collection Method Collection Time Receive d Time (Source) Location / / Volume Laterality Blood 01/30/2022 1:41 PM 2 1:41 EDT PM EDT Vitaliy Nobles MD POINT OF CARE TEST ORDERABLE S Performing Organization Address City/[facility]/ZIP Code Phon e Number [address] POCT Glucose (01/30/2022 10:48 AM EDT) P athologist Signature POC Glucose 193 65 - 199 [facility] mg/dL [facility] LABORATORY Comment: Supplemental ranges: <140 mg/dL before meals <180 mg/dL all other times of the day Specimen Anatomical Collection Method Collection Time Receive d Time (Source) Location / / Volume Laterality Blood 01/30/2022 10:48 01/30/2022 AM EDT 10:48 AM EDT Vitaliy Nobles MD POINT OF CARE TEST ORDERABLE S Performing Organization Address [facility] [place] [address] EKG 12 Lead (01/30/2022 [...] change was found Confirmed by Gary Perez ([id number]) on 01/30/2022 5:57:5 2 PM Specimen Anatomical Collection Method Collection Time Receive d Time (Source) Location / / Volume Laterality 01/30/2022 10:33 01/30/2022 5:57 AM EDT PM EDT Vitaliy Nobles MD ECG ORDERABLES Performing Organization Address City/[facility]/ZIP Code Phon e Number MUSE SYSTEM CARDIAC CATHETERIZATION (01/30/2022 10:16 AM EDT) Anatomical Region Laterality Modality Other Specimen (Source) Anatomical Location Collection Method / Collectio n Time Received Time / Laterality Volume Narrative 01/30/2022 2:09 PM EDT ?[facility] ? Cardiac Cathete rization/Intervention Report ? Patient Name: Don Fatima. ? Procedure Date: 01/30/2022 ? A #: [id number] ? Primary Physician: Nobles, Vitaliy P ? Case #: [id number] ? File Name: [id number] ? Catheterization Order Number: [id number] ? [facility] ? Final Report [place], [place] ? Patient Name: ? Don E. Stewa rt ? ID#: ?[id number] ? : ?1945 ? Procedure Date: ? [...] was Urgent. The indication for ?the label maker visit is stable kn own CAD. Chest [...] guiding catheter an d a 3.5 Fr [facility] [address] ??20 Mhz ?using Manual pullback. ??Imagin [...] A premounted 2.00 x 26 mm Hardeep Shawnee (TUCKER) ? was deployed wi a maximum [...] Wedelivered along 2.0 x 26 mm HARDEEP [place] ? TUCKER stent and p ositioned it [...] administered prior to arrival in the label maker. ?Recommended anti-platelet/anti- thrombotic regimen: ?Continue aspirin 81 [...] may require ?modification of this regimen. [facility] ?questions. ?The 1 [...] using a 2.0 x 26 mm HARDEEP [place] TUCKER stent. ?This completes the revasculariz ation [...] Procedure Note Vitaliy Nobles MD - 03/06/2022 [facility] Cardiac Catheterization/Intervention Re port Patient Name: Don Fatima Procedure Date: 01/30/2022 A #: [id number] Primary Physician: Vitaliy Nobles Case #: [id number] File Name: [id number] Catheterization Order Number: [id number] [facility] Final Report [place], [place] Patient Name: Don Fatima ID#: [...] was Urgent. The indication for the label maker visit is stable known CAD. Chest pain [...] 1.5 guiding catheter and a 3.5 Fr [facility] [address] 20 Mhz using Manual pullback. Imaging [...] A premounted 2.00 x 26 mm Hardeep Shawnee (TUCKER) was deployed with a maximum inflation [...] along 2. 0 x 26 mm HARDEEP [place] TUCKER stent and positioned it at the [...] prior t o arrival in the label maker. Recommended anti-platelet/anti-thrombot ic regimen: Continue aspirin 81 [...] require modification of this regimen. Consult [facility] Interventional Cardiology for questions. The 1 year [...] using a 2.0 x 26 mm HARDEEP [place] TUCKER stent. This completes the revascularization of [...] [facility] mg/dL [facility] LABORATORY Comment: Supplemental ranges: <140 mg/dL before meals <180 mg/dL all other times of the day Specimen Anatomical Collection Method Collection Time Receive d Time (Source) Location / / Volume Laterality Blood 01/30/2022 9:04 AM 2 9:04 EDT AM EDT Vitaliy Nobles MD POINT OF CARE TEST ORDERABLE S Performing Organization Address City/State/[place] [address] (ABNORMAL) POCT Glucose (01/30/2022 8:10 AM EDT) athologist Signature POC Glucose 224 (H) 65 - 199 [facility] mg/dL [facility] LABORATORY Comment: Supplemental ranges: <140 mg/dL before meals <180 mg/dL all other times of the day Specimen Anatomical Collection Method Collection Time Receive d Time (Source) Location / / Volume Laterality Blood 01/30/2022 8:10 AM 2 8:10 EDT AM EDT Vitaliy Nobles MD POINT OF CARE TEST ORDERABLE S Performing Organization Address City/State/[place] [address] documented in this encounter Visit Diagnoses Diagnosis ASCVD (arteriosclerotic cardiovascular d isease) Unspecified cardiovascular disease 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 ASHD (arteriosclerotic heart disease) Coronary atherosclerosis of unspecified type of vessel, [place] or graft ASCVD (arteriosclerotic cardiovascular d isease) Unspecified cardiovascular disease documented in this encounter Admitting Diagnoses Diagnosis CAD (coronary artery disease) Coronary atherosclerosis of unspecified type of vessel, [place] or graft documented in this encounter Administered [...] Given 02/2022 10:11 AM EDT 100 mcg ([employer] SKILLED MAINTENANCE SUPERVISOR) ONCE PRN, Starting on Wed01/30/22 at 0927, [...] Procedure), Routine niCARdipine (Cardene) (100 mcg/mL) dilution ([employer] SKILLED MAINTENANCE SUPERVISOR) (CANCELED ) 0927 (Given - Provider: Vitaliy [...] (Intra-Procedure) documented in this encounter Care Teams Adjunct Psychology Faculty Member Relationship Specialty Start Date End Date Lovely Vicente MD PCP - General 04/16/[address] [place] [address] documented as of this encounter
--- OUTSIDE RECORDS SUMMARY | 2022-04-22 08:15 | XMS_ITS | Encounter Summary ---
:1945 Author Organization [facility] [place] [address] Care Team Providers Name Role Phone Lovely Vicente MD Primary Care Provider Encounter Details Date Type Department Care Team Description 02/24/2022 Orders Only Cardiology at [facility] Liz Poole, Chronic systolic heart [facility] [place] [address] Cardiology Dept [place], [place] [address] Social History Tobacco Use [...] MD [facility] er [place], [place] [address] (Wo rk) 05/28/2022 Laboratory Appointment Lab 05/28/2022 Office Visit Cardiology Zulma Dolan MD [facility] [place] [address] [facility] [place] [address] 06/10/2022 Office Visit Dermatology Laura Scherer MD [facility] ER DR [address] [place], [place] [address] (Wo rk) documented as of this encounter Visit Diagnoses Diagnosis Chronic systolic heart failure documented in this encounter Care Teams Worm Picker Relationship Specialty Start Date End Date Lovely Vicente MD PCP - General 04/16/[address] [place] [address] documented as of this encounter
--- OUTSIDE RECORDS SUMMARY | 2022-04-22 08:15 | XMS_ITS | Encounter Summary ---
:1945 Author Organization [facility] [address] Care Team Providers Name Role Phone Lovely Vicente MD Primary Care Provider Reason for Visit Reason Comments Medication Refill Encounter Details Date Type Department Care Team Description 04/07/2022 Refill Cardiology at [facility] Janneth Padilla PA Medication Refill [facility] [place] [address] CARDIOLOGY DEPT. [phone] [place], [place] [address] (Wo rk) Social History Tobacco [...] Dolan MD [facility] er [place], [place] [address] (Wo rk) 05/28/2022 Laboratory Appointment Lab 05/28/2022 Office Visit Cardiology Zulma Dolan [place] [address] Liz Poole PA [facility] [place] [address] 06/10/2022 Office Visit Dermatology Laura Scherer MD [facility] [address] [place], [place] [address] (Wo rk) documented as of this encounter Visit Diagnoses Not on filedocumented in this encounter Care Teams Proposal Specialist Relationship Specialty Start Date End Date Lovely Vicente MD PCP - General 04/16/[address] [place] [address] [address] [place] [address] documented as of this encounter
--- OUTSIDE RECORDS SUMMARY | 2022-04-22 08:15 | XMS_ITS | Encounter Summary ---
:1945 Author Organization [facility] [place] [address] Care Team Providers Name Role Phone Lovely Vicente MD Primary Care Provider Reason for Visit Reason Onset Date Comments Medication Refill 03/11/2022 Encounter Details Date Type Department Care Team Description 03/06/2022 Refill Cardiology at [facility] Liz Poole PA Medication Refill [facility] Jorge mcnamara [facility] [place] [address] Cardiology Dept [phone] [place], [place] [address] (Wo rk) Social History Tobacco [...] Zulma Dolan MD [facility] [place], [place] [address] (Wo rk) 05/28/2022 Laboratory Appointment Lab 05/28/2022 Office Visit Cardiology Zulma Dolan MD [facility] [place] [address] Liz Poole PA [facility] [place] [address] 06/10/2022 Office Visit Dermatology Laura Scherer MD [facility] ER DR [address] [place], [place] [address] (Wo rk) documented as of this encounter Visit Diagnoses Not on filedocumented in this encounter Care Teams Hydraulic Riveter Relationship Specialty Start Date End Date Lovely Vicente MD PCP - General 04/16/[address] [place] [address] documented as of this encounter
--- OUTSIDE RECORDS SUMMARY | 2022-04-22 08:15 | XMS_ITS | Encounter Summary ---
:1945 Author Organization [facility] [place] [address] Care Team Providers Name Role Phone Lovely Vicente MD Primary Care Provider Reason for Visit Reason Onset Date Comments Follow-up 02/23/2022 Medication adjustmen t and new med Encounter Details Date Type Department Care Team Description 02/23/2022 Telephone Cardiology at [facility] Martha Comer, Follow-up ([facility] RN adjustbrandon t and new med) [place] [address] Social History Tobacco Use Types Packs/Day [...] tablet) daily. She will correct his pill facility planner to the new dose. Will need [...] if he qualifies for assistance from the [employer]. She is thankful for the assistance, as he is taking insulin that is very expensive too. Instructed to call this contract writer, if he does qualify for assistance from [employer] and that he has gotten the medication [...] Zulma Dolan MD [facility] [place], [place] [address] (Wo rk) 05/28/2022 Laboratory Appointment Lab 05/28/2022 Office Visit Cardiology Zulma Dolan MD [facility] [place] [address] Liz Poole PA [facility] [place] [address] 06/10/2022 Office Visit Dermatology Laura Scherer MD [facility] DR [address] [place], [place] [address] (Wo rk) documented as of this encounter Visit Diagnoses Not on filedocumented in this encounter Care Teams Unit Reactor Operator Relationship Specialty Start Date End Date Lovely Vicente MD PCP - General 04/16/[address] [place] [address] documented as of this encounter
--- OUTSIDE RECORDS SUMMARY | 2022-04-22 08:15 | XMS_ITS | Encounter Summary ---
:1945 Author Organization [facility] [place] [address] Care Team Providers Name Role Phone Lovely Vicente MD Primary Care Provider Encounter Details Date Type Department Care Team Description 02/19/2022 Laboratory Appointment Lab 3L [facility] [place] [address] Social History Tobacco Use Types Packs/Day Years [...] MD [facility] er [place], [place] [address] (Wo rk) 05/28/2022 Laboratory Appointment Lab 05/28/2022 Office Visit Cardiology Zulma Dolan MD [facility] [place] [address] Liz Poole PA [facility] [place] [address] 06/10/2022 Office Visit Dermatology Laura Scherer MD [facility] DR [address] [place] [address] (Wo rk) documented as of this encounter [...] (ABNORMAL) Differential, Automated (02/19/2022 8:06 AM EDT) [facility] gist Method Time Signature Neutrophils % 76.0 % [facility] LABORATORY Neutr Abs (ANC) 5.49 1.70 - [facility] 6.10 [facility] x10(3)/[facility] LABORATORY Lymphocytes % 10.8 % [facility] LABOR[facility] Lymphocytes Abs 0.8 (L) 0.9 - 3.2 [facility] x10(3)/[facility] LABORATORY Monocytes % 10.2 % [facility] LABORATORY Monocyte Abs 0.7 0.3 - 0.9 [facility] x10(3)/[facility] LABORATORY Eosinophils % 1.2 % [facility] Eosinophils Abs 0.1 0.0 - 0.4 [facility] x10(3)/[facility] LABORATORY Basophils % 0.8 % [facility] Basophils Abs 0.1 0.0 - 0.1 [facility] x10(3)/[facility] LABORATORY Immature Gran % 1.00 % [facility] [...] Abs 0.07 (H) 0.00 - 0.04 x10(3)/[facility] LABORATORY Specimen Anatomical Collection Method Collection Time Receive d Time (Source) Location / / Volume Laterality Blood 02/19/2022 8:06 AM 8:09 EDT AM EDT Resulting Agency Comment Spec In Lab Liz BROWN HEMATOLOGY ORDERABLES Performing Organization Address City/State/[place] [address] (ABNORMAL) Hemogram (02/19/2022 8:06 AM EDT) Analysis Performed At Patho logist Time Signature WBC 7.2 4.0 - 9.5 [facility] x10(3)/[facility] LABORATORY RBC 4.41 (L) 4.58 - [facility] 5.54 [facility] x10(6)/[facility] LABORATORY Hemoglobin 13.2 (L) 13.7 - [facility] 16.5 g/dL [facility] LABORATORY Hematocrit 40.9 40.5 - [facility] 48.5 % [facility] LABORATORY MCV 92.7 82.9 - [facility] 93.1 [facility] LABORATORY MCH 29.9 27.5 - [facility] 32.1 pg [facility] LABORATORY MCHC 32.3 32.0 - [facility] 35.7 g/dL [facility] LABORATORY Platelets 191 145 - 357 [facility] x10(3)/[facility] LABORATORY RDWSD 53.6 (H) 36.0 - [facility] 45.0 [facility] LABORATORY RDWCV 15.6 (H) 11.4 - [facility] 13.8 % [facility] LABORATORY MPV 8.7 7.6 - 12.9 [facility] LABORATORY nRBC % Auto 0.0 % [facility] LABORATORY nRBC Abs Auto 0.000 0.000 - [facility] 0.000 [facility] x10(3)/[facility] LABORATORY Specimen Anatomical Collection Method Collection Time Receive d Time (Source) Location / / Volume Laterality Blood 02/19/2022 8:06 AM 2 8:09 EDT AM EDT Resulting Agency Comment Spec In Lab Liz BROWN HEMATOLOGY ORDERABLES Performing Organization Address City/[place] Hospital/[place] [address] (ABNORMAL) pro-Brain Natriuretic Peptide [...] Organization Address City/State/[place] [address] (ABNORMAL) Basic Metabolic Panel (non-fasting) (02/19/2022 8:06 AM EDT) P athologist Signature Glucose Lvl 139 65 - 199 [facility] mg/dL [facility] LABORATORY Comment: Diabetes: >=200 mg/dL plus symp toms BUN 31 (H) 10 - 20 mg/dL [facility] LABORATORY Creatinine 1.53 (H) 0.80 - 1.50 mg/dL [facility] LABORATORY Sodium 142 135 - 145 mmol/L [facility] LABORATORY Potassium 5.4 (H) 3.5 - 5.0 mmol/L ST. [...] LABORATORY Calcium 9.7 8.5 - 10.5 mg/dL [facility] [...] City/State/[place] [address] documented in this encounter Visit Diagnoses Diagnosis Chronic systolic heart failure documented in this encounter Care Teams Billing Specialist Relationship Specialty Start Date End Date Lovely Vicente MD PCP - General 04/16/[address] [place] [address] documented as of this encounter
--- OUTSIDE RECORDS SUMMARY | 2022-04-22 08:15 | XMS_ITS | Encounter Summary ---
:1945 Author Organization [facility] Address [facility] [place] [address] Care Team Providers Name Role Phone Lovely Vicente MD Primary Care Provider Reason for Visit Auth/Cert Specialty Diagnoses / Procedures Referred By Contact Refer red To Contact Diagnoses ASCVD (arteriosclerotic cardiovascular disease) [I25.10] Vitaliy Nobles MD [facility] Procedures PRO PERC TRLUML CORONARY STENT W/ANGIO ONE ART/BRANCH CARDIAC CATHETERIZATION STENT PLACEMENT-SINGLE MAJOR CORONARY ARTERY OR BRANCH [facility] [place] [address] Referral ID Status Reason Start Date Expiration Date Visits Requ ested Visits Authorized [id number] 1 1 Encounter Details Date Type Department Care Team Description 01/30/2022 Hospital Encounter Short Stay Unit at Vitaliy Nobles, CVD (arteriosclerotic cardiovascular disease); Barbara Blue MD 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 Please follow up with your well control instructor in the next 4-6 weeks. We have [...] Murray RN - 01/30/2022 4:54 PM EDT [facility] Short Stay Unit Discharge Note All [...] PCI presenting for staged PCI to [facility]. The pt states he has been [...] PCI presenting for staged PCI to [facility]. The indications, expected benefits, and potential [...] had referred him to cardiac rehab at [facility] last month per HF team. He was waiting until this intervention before starting the program. Reviewed managing angina /use of sl nitroglycerin. Given parameters for home exercise. 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 We discussed short walks several times per day. Will send [facility] his discharge summary from this admission. The patient should be contacted by the Program within 1- 2 weeks from discharge. Brief Op Note - Vitaliy Nobles MD - 01/30/2022 10:19 AM EDT Images from the original note were not included. Formerly [facility] [place] [address] CORONARY ANGIOGRAM AND PERCUTANEOUS CORONARY INTERVENTION REPORT Patient: Don Fatima : 1945 MR number: [id number] Date of Service: 01/30/2022 Spring Coiler Hand: Vitaliy Nobles MD Fellow: KEYON Elizabeth INDICATION: [...] a long 2.0 x 26 mm HARDEEP [place] TUCKER stent and positioned it at the [...] using a 2.0 x 26 mm HARDEEP [place] TUCKER stent. This completes the revascularization ofall [...] Zulma Dolan MD [facility] er [place] [address] (Wo rk) 05/28/2022 Laboratory Appointment Lab 05/28/2022 Office Visit Cardiology Zulma Dolan MD [facility] [place] [address] Liz Poole PA [facility] [place] [address] 06/10/2022 Office Visit Dermatology Laura Scherer MD [facility] ER DR [address] [place], [place] [address] (Wo rk) Scheduled Orders Name [...] P athologist Signature Neutrophils % 71.8 % [facility] Neutr Abs (ANC) 3.96 1.70 - [facility] 6.10 [facility] x10(3)/[facility] LABORATORY Lymphocytes % 16.3 % [facility] Lymphocytes Abs 0.9 0.9 - 3.2 [facility] x10(3)/[facility] LABORATORY Monocytes % 10.0 % [facility] Monocyte Abs 0.6 0.3 - 0.9 [facility] x10(3)/[facility] LABORATORY Eosinophils % 0.5 % [facility] Eosinophils Abs 0.0 0.0 - 0.4 [facility] x10(3)/[facility] LABORATORY Basophils % 0.5 % [facility] Basophils Abs 0.0 0.0 - 0.1 [facility] x10(3)/[facility] LABORATORY Immature Gran % 0.90 % NORTH [...] City/State/[place] [address] (ABNORMAL) Hemogram (01/30/2022 2:12 PM EDT) Analysis Performed At Patho logist Time Signature WBC 5.5 4.0 - 9.5 [facility] x10(3)/[facility] LABORATORY RBC 4.30 (L) 4.58 - [place] 5.54 [facility] x10(6)/[facility] LABORATORY Hemoglobin 12.7 (L) 13.7 - [place] 16.5 g/dL [facility] Hematocrit 39.4 (L) 40.5 - [place] 48.5 % [facility] MCV 91.6 82.9 - [facility]1 [facility] LABORATORY MCH 29.5 27.5 - [place] ZHAOSU 32.1 pg [facility] MCHC 32.2 32.0 - [place] 35.7 g/dL [facility] Platelets 172 145 - 357 [facility] x10(3)/[facility] LABORATORY RDWSD 54.5 (H) 36.0 - [facility]0 [facility] LAB[facility] RDWCV 16.4 (H) 11.4 - [facility] 13.8 % [facility] MPV 9.2 7.6 - 12.9 [facility] LABORATORY nRBC % Auto 0.0 % [facility] nRBC Abs Auto 0.000 0.000 - [facility] 0.000 [facility] x10(3)/[facility] LABORATORY Specimen Anatomical Collection Method Collection Time Receive d Time (Source) Location / / Volume Laterality Blood 01/30/2022 2:12 PM 2 2:37 EDT PM EDT Resulting Agency Comment Spec In Lab Eddi Elizabeth Jr., MD HEMATOLOGY ORDERABLES Performing Organization Address City/State/[place] [address] (ABNORMAL) Basic Metabolic Panel (non-fasting) (01/30/2022 2:12 PM EDT) P athologist Signature Glucose Lvl 163 65 - 199 [facility] mg/dL [facility] Comment: Diabetes: >=200 mg/dL plus symp toms BUN 30 (H) 10 - 20 mg/dL [facility] Creatinine 1.47 0.80 - 1.50 mg/dL [facility] OCK [facility] Sodium 140 135 - 145 mmol/L [...] City/State/[place] [address] POCT Glucose (01/30/2022 1:41 PM EDT) athologist Signature POC Glucose 148 65 - 199 [facility] mg/dL [facility] Comment: Supplemental ranges: <140 mg/dL before meals <180 mg/dL all other times of the day Specimen Anatomical Collection Method Collection Time Receive d Time (Source) Location / / Volume Laterality Blood 01/30/2022 1:41 PM 1:41 EDT PM EDT Vitaliy Sandar Nobles MD POINT OF CARE TEST ORDERABLE S Performing Organization Address City/[facility]/ZIP Code Phon e Number [address] POCT Glucose (01/30/2022 10:48 AM EDT) P athologist Signature POC Glucose 193 65 - 199 [facility] mg/dL [facility] Comment: Supplemental ranges: <140 mg/dL before meals <180 mg/dL all other times of the day Specimen Anatomical Collection Method Collection Time Receive d Time (Source) Location / / Volume Laterality Blood 01/30/2022 10:48 01/30/2022 AM EDT 10:48 AM EDT Vitaliy Sandra Nobles MD POINT OF CARE TEST ORDERABLE S Performing Organization Address [facility] [address] EKG 12 Lead (01/30/2022 10:33 AM EDT) Component Value Ref Range Test Analysis Performed Pathologis t Method Time At Signature Ventricular rate 64 BPM MUSE SYSTEM Atrial Rate 64 BPM MUSE SYSTEM P-R Interval 162 ms MUSE SYSTEM QRS Duration 94 ms MUSE SYSTEM Q-T Interval 422 ms MUSE SYSTEM QTC Calculated 435 ms MUSE SYSTEM (Bezet) Calculated P [place] 41 degrees MUSE SYSTEM Calculated R [place] -27 degrees MUSE SYSTEM Calculated T [place] 104 degrees MUSE SYSTEM INTERPRETATION Normal sinus rhythm MUSE SYSTEM Anterolateral infarct (cited on or before 09-DEC-2021) Abnormal ECG When compared with ECG of 10-DEC-2021 11:17, No significant change was found Confirmed by Gary Perez ([id number]) on 01/30/2022 5:57:5 2 PM Specimen Anatomical [...] Laterality Volume Narrative 01/30/2022 2:09 PM EDT ?[facility] ? Cardiac Cathete rization/Intervention Report ? Patient Name: Don Fatima. ? Procedure Date: 01/30/2022 ? A #: [id number] ? Primary Physician: Nobles, Vitaliy P ? Case #: [id number] ? File Name: [id number] ? Catheterization Order Number: [id number] ? [facility] ? Final Report [place], [place] ? Patient Name: ? Don Mccollum. Stewa rt ? ID#: ?[id number] ? : ?1945 ? Procedure Date: ? [...] ?designated as ASA Class III. Th e [facility] clinical frailty scale is 5: [...] Urgent. The indication for ?the dental laboratory manager visit is stable kn own CAD. Chest pain symptom assessment ?was: Typical Angina. ? Technique: ?A 6 SLFr sheath was inserted in the right radial artery utilizing the ?Seldinger technique. The right coronary artery was injected utilizing a ?IR 2.0 catheter. Coronary stent insertion was performed and the equipment ?utilized will be described in [facility] intervention summary section. 9,000 ?units [...] d a 3.5 Fr [facility] [address] ??20 Mhz ?using Manual pullback. ??Imagin [...] A premounted 2.00 x 26 mm [place] (TUCKER) ? was deployed wi a maximum [...] Wedelivered along 2.0 x 26 mm HARDEEP [place] ? TUCKER stent and p ositioned it at the ostium of the RPDA ? extending into the mid RPDA and deployed it at 12 darshan. We then ? usedthe ajcob em to post-dilate the stent to 20atm [...] prior to arrival in the dental laboratory manager. ?Recommended anti-platelet/anti- thrombotic regimen: ?Continue [...] require ?modification of this regimen. C onsult [facility] Interventional Cardiology for ?questions. ?The 1 year bleeding risk as nusrat culated by the PRECISE DAPT score is High ?risk. ?High Bleeding Risk - Anticoagul ation and DAPT: ?- ??Assess ischemic and bleedin g risks using validated risk predictors ?(e.g. 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 That day in November ?2021, [...] using a 2.0 x 26 mm HARDEEP [place] TUCKER stent. ?This completes the revasculariz ation [...] Procedure Note Vitaliy Nobles MD - 03/06/2022 [facility] Cardiac Catheterization/Intervention Re port Patient Name: Don Fatima Procedure Date: 01/30/2022 A #: [id number] Primary Physician: Vitaliy Nobles Case #: [id number] File Name: [id number] Catheterization Order Number: [id number] [facility] Final Report [place], [place] Patient Name: Don Fatima ID#: [...] Insertion * Peripheral Intravascular Ultrasound History Don Faitma is a 76 year old man. He [...] was Urgent. The indication for the dental laboratory manager visit is stable known CAD. Chest [...] and a 3.5 Fr [facility] [address] 20 Mhz using Manual pullback. Imaging [...] atmospheres. A premounted 2.00 x 26 mm [place] (TUCKER) was deployed with a maximum inflation [...] along 2. 0 x 26 mm HARDEEP [place] TUCKER stent and positioned it at the [...] prior t o arrival in the dental laboratory manager. Recommended anti-platelet/anti-thrombot ic regimen: Continue aspirin [...] require modification of this regimen. Consult [facility] [...] using a 2.0 x 26 mm HARDEEP [place] TUCKER stent. This completes the revascularization of [...] POC Glucose 212 (H) 65 - 199 [facility] mg/dL [facility] Comment: Supplemental ranges: <140 mg/dL before meals <180 mg/dL all other times of the day Specimen Anatomical Collection Method Collection Time Receive d Time (Source) Location / / Volume Laterality Blood 01/30/2022 9:04 AM 2 9:04 EDT AM EDT Vitaliy Nobles MD POINT OF CARE TEST ORDERABLE S Performing Organization Address City/State/[place] [address] (ABNORMAL) POCT Glucose (01/30/2022 8:10 AM EDT) athologist Signature POC Glucose 224 (H) 65 - 199 [facility] mg/dL [facility] Comment: Supplemental ranges: <140 mg/dL before meals <180 mg/dL all other times of the day Specimen Anatomical Collection Method Collection Time Receive d Time (Source) Location / / Volume Laterality Blood 01/30/2022 8:10 AM 2 8:10 EDT AM EDT Vitaliy Nobles MD POINT OF CARE TEST ORDERABLE S Performing Organization Address City/State/[place] [address] documented in this encounter Visit Diagnoses Diagnosis ASCVD (arteriosclerotic cardiovascular d isease) Unspecified cardiovascular disease Atherosclerosis of [place] coronary arter y of cous[place] heart with angina pectoris with documented spasm ASHD (arteriosclerotic heart disease) Coronary atherosclerosis of unspecified type of vessel, [place] or graft ASCVD (arteriosclerotic cardiovascular d isease) Unspecified cardiovascular disease documented in this encounter Admitting Diagnoses Diagnosis CAD (coronary artery disease) Coronary atherosclerosis of unspecified type of vessel, [place] or graft documented in this encounter Administered [...] Procedure), Routine niCARdipine (Cardene) (100 mcg/mL) dilution (MATRIX REPAIRER) (CANCELED ) 0927 (Given - Provider: Vitaliy [...] (Intra-Procedure) documented in this encounter Care Teams Bridge Manager Relationship Specialty Start Date End Date Lovely Vicente MD PCP - General 04/16/[address] [place] [address] documented as of this encounter
--- OUTSIDE RECORDS SUMMARY | 2022-04-22 08:15 | XMS_ITS | Encounter Summary ---
:1945 Author Organization [facility] [place] [address] Care Team Providers Name Role Phone Lovely Vicente MD Primary Care Provider Encounter Details Date Type Department Care Team Description 02/24/2022 Notes Only [place] [address] Social History Tobacco Use Types Packs/Day [...] return to the Medication Assistance Program. The [facility] office will follow up with the patient in 5 business days to see if the patient has received the application and if they have any questions. documented in this encounter Plan of Treatment Upcoming Encounters Date Type Specialty Care Team Description 05/28/2022 Appointment Cardiology Zulma Dolna MD [facility] [address] [place] [address] (Wo rk) 05/28/2022 Laboratory Appointment Lab 05/28/2022 Office Visit Cardiology Zulma Dolan MD [facility] [place] [address] Liz Poole PA [facility] [place] [address] 06/10/2022 Office Visit Dermatology Laura Scherer MD [facility] ER DR [address] [place], [place] [address] (Wo rk) documented as of this encounter Visit Diagnoses Not on filedocumented in this encounter Care Teams Concert Manager Relationship Specialty Start Date End Date Lovely Vicente MD PCP - General 04/16/[address] [place] [address] documented as of this encounter
--- OUTSIDE RECORDS SUMMARY | 2022-04-22 08:15 | XMS_ITS | Encounter Summary ---
:1945 Author Organization [facility] Address [facility] [place] [address] Care Team Providers Name Role Phone Lovely Vicente MD Primary Care Provider Reason for Visit Reason Onset Date Comments Medication Refill 04/09/2022 Jardiance Encounter Details Date Type Department Care Team Description 04/09/2022 Refill Cardiology at [facility] Liz Poole PA Medication Refill [facility] [place] (Ja rdiance) [place] [address] Cardiology Dept [phone] [place], [place] [address] (Wo rk) Social History Tobacco [...] [facility] er [place] 0375 (Wo rk) 05/28/2022 Laboratory Appointment Lab 05/28/2022 Office Visit Cardiology Zulma Dolan MD [facility] [place] [address] Liz Poole PA [facility] [place] [address] 06/10/2022 Office Visit Dermatology Laura Scherer MD [facility] ER DR [address] [place], [place] 0[address] (Wo rk) documented as of this encounter Visit Diagnoses Diagnosis Chronic systolic heart failure documented in this encounter Care Teams Poultry Boner Relationship Specialty Start Date End Date Lovely Vicente MD PCP - General 04/16/[address] [place] [address] documented as of this encounter
--- OUTSIDE RECORDS SUMMARY | 2022-04-22 08:15 | XMS_ITS | Encounter Summary ---
:1945 Author Organization [facility] [place] [place] [address] Care Team Providers Name Role Phone Lovely Vicente MD Primary Care Provider Encounter Details Date Type Department Care Team Description 02/23/2022 Refill Cardiology at [facility] Liz Poole PA [facility] [place] [address] Cardiology Dept [phone] [place], [place] 0[address] (Wo rk) Social History Tobacco [...] Oneill RPH Transfer of Services Don Fatima [address] [place] [address] [place] [address] Telephone Information: Work Phone Not on file. The [facility] has received a prescription for Entresto for patient Mr. Don Fatima 76 y.o. (1945). The patient requests the prescription to be filled with [facility]. We spoke to patient to notify of this change and to provide number to reach the new filling pharmacy. A copyof patient's medication profile was offered to the accepting pharmacy. Additional instructions provided to patient about transfer: no The patient has been advised to call the [facility] at [phone] with any questionsor concerns on this referral. Thank you, Oxana Oneill RPH 02/23/22 4:26 PM Patient understands no changes to current drug regimen were made at this time. documented in this encounter Plan of Treatment Upcoming Encounters Date Type Specialty Care Team Description 05/28/2022 Appointment Cardiology Zulma Dolan MD [facility] [place], [place] 0[address] (Wo rk) 05/28/2022 Laboratory Appointment Lab 05/28/2022 Office Visit Cardiology Zulma Dolan MD [place] [address] Liz Poole PA [facility] [place] [address] 06/10/2022 Office Visit Dermatology Laura Scherer MD [facility] DR [address] [place], [place] [address] (Wo rk) documented as of this encounter Visit Diagnoses Not on filedocumented in this encounter Care Teams Trauma Nurse Relationship Specialty Start Date End Date Lovely Vicente MD PCP - General 04/16/[address] [place] [address] documented as of this encounter
--- OUTSIDE RECORDS SUMMARY | 2022-04-22 08:15 | XMS_ITS | Encounter Summary ---
:1945 Author Organization [facility] [place] [address] Care Team Providers Name Role Phone Lovely Vicente MD Primary Care Provider Reason for Referral Diagnostic Test (Routine) - New Request Specialty Diagnoses / Procedures Referred By Contact Refer red To Contact Cardiology Diagnoses Chronic systolic heart failure Liz Carrera PA [facility] Non-Inv Card Lab Procedures Echocardiogram Transthoracic [facility] [place] [address] [place] [address] Fax: Referral ID Status Reason Start Expiration Visits Visits Date Date Requested Authorized [id number] New Request Specialty 02/19/2022 02/19/2023 1 1 Service Requested Encounter Details Date Type Department Care Team Description 02/19/2022 Office Visit Cardiology at [facility] Liz Carrera, Chronic systolic heart [facility] [place] [address] Cardiology Dept [phone] [place], [place] [address] Social History Tobacco Use Types [...] per DC Summary - Admitted to [facility] on 12/08/21, transferred from [facility], respiratory distress with hypoxia 86% on [...] mg PO daily in place of Lasix. [place] is new for him and he will [...] Antiplatelet (DAPT) Recommendations above ? TTE from [facility] 12/08/21 ?? 07/28/2019 Echocardiogram: SUMMARY: 1. [...] regurgitation present. 07/07/2019 - 07/21/2019 [employer] The patient had a minimum heart rate [...] 12.5 mg daily 6. Post-op atrial fibrillation [id number] (CHF, HTN, DM, vascular disease, thromboembolism) Eliquis 7. PAD 08/06/2017: Right 1st, 2nd, 3rd toe amputation 08/11/2017: Left??femoral arterial access, RLE??angiogram, Balloon angioplasty of R PT 10/25/2017: right popliteal-pedal bypass at [facility] 8. Hypothyrodism S/p thyroidectomy for goiter [...] Description 05/28/2022 Appointment Cardiology Zulma oDlan MD [facility] [place], [place] 0[address] (Wo rk) 05/28/2022 Laboratory Appointment Lab 05/28/2022 Office Visit Cardiology Zulma Dolan MD [facility] [place] [address] Liz Carrera PA [facility] [place] [address] 06/10/2022 Office Visit Dermatology Laura Scherer MD [facility] DR [address]DERMAT [facility] [place] [address] (Wo rk) Scheduled Orders Name Type Priority Associated Order Schedule Diagnoses Echocardiogram Echocardiography Routine Chronic systolic Expec vlad: Transthoracic heart failure 05/22/2022 (Approximate), Expires: 11/21/2022 documented as of this encounter Results (ABNORMAL) Basic Metabolic Panel (non-fasting) (02/19/2022 8:06 AM EDT) P athologist Signature Glucose Lvl 139 65 - 199 [facility] mg/dL [facility] LABORATORY Comment: Diabetes: >=200 mg/dL plus symp toms BUN 31 (H) 10 - 20 mg/dL [facility] Creatinine 1.53 (H) 0.80 - 1.50 mg/dL [facility] [...] 15 mmol/L [facility] LAB[facility] Calcium 9.7 8.5 - [...] City/State/ZIP Code Phon e Number [place] [phone] HOSP[address] LAB[address]ORY Drive (ABNORMAL) pro-Brain Natriuretic Peptide [...] [facility]/[place] [address] documented in this encounter Visit Diagnoses Diagnosis Chronic systolic heart failure documented in this encounter Care Teams A&P Mechanic Relationship Specialty Start Date End Date Lovely Vicente MD PCP - General 04/16/[address] [place] [address] documented as of this encounter
--- OUTSIDE RECORDS SUMMARY | 2022-04-22 08:15 | XMS_ITS | Encounter Summary ---
:1945 Author Organization [facility] [address] Care Team Providers Name Role Phone Lovely Vicente MD Primary Care Provider Encounter Details Date Type Department Care Team Description 03/26/2022 Office Visit Cardiology at [facility] [place] [facility] Vitaliy Nobles MD Chronic systolic heart failure; [facility] ONE MEDICAL ASCVD (ar teriosclerotic cardiovascular disease); [facility] Cardiomyopathy, ischemic [place] CARDIOLOGY [address] [place] [address] [phone] Social History Tobacco Use Types Packs/Day Years [...] included. [facility] [place] [address] CARDIOLOGY OUTPATIENT CLINIC VISIT [facility] Don Mccollum Kushal 03/26/2022 Referring Providers: MD Jules Cr Joyce, MD [address] [place] [address] CHIEF COMPLAINT: I am doing well CARDIAC-RELEVANT [...] using a 2.0 x 26 mm ORION [place] TUCKER stent. This completes therevascularization of all [...] [address] Lovely Vicente MD [address] [place] [address] HISTORY OF PRESENT ILLNESS: Don Fatima is [...] using a 2.0 x 26 mm ORION [place] TUCKER stent. This completes the revascularization of [...] MD at [facility] MAIN OR ??? PRO AMPUTATION FOOT, [...] performed by Lamar Smith MD at [facility] MAIN OR ??? PRO ENDOSCOPY W/VIDEO-ASST VEIN HARVEST, CABG Right 07/07/2017 ENDOSCOPIC HARVEST VEIN(S) FOR CABG (WRVU 0.31) performed by Yuan Retana MD at [facility] MAIN OR ??? PRO PERC TRLUML CORONARY STENT W/ANGIO ONE ART/BRANCH N/A 01/30/2022 STENT PLACEMENT-SINGLE MAJOR CORONARY ARTERY OR BRANCH performed by Vitaliy Nobles MD at [facility] CATH LABS ??? PRO THYROIDECTOMY 03/28/2013 THYROIDECTOMY, TOTAL OR COMPLETE performed by Manny Mcknight MD at [facility] MAIN OR SOCIAL HISTORY: reports that [...] using a 2.0 x 26 mm ORION [place] TUCKER stent. This completes the revascularization of [...] Sincerely, Dr. Vitaliy Nobles MD [employer] Elevator Serviceman Interventional Cardiology 03/26/2022 CC: Lovely Vicente MD [...] [place], transferred from [facility], respiratory distress with hypoxia [...] Antiplatelet (DAPT) Recommendations above ? TTE from [facility] 12/08/21 ?? 07/28/2019 Echocardiogram: [...] regurgitation present. 07/07/2019 - 07/21/2019 Zio Patch Siphon Operator The patient had a minimum heart [...] 12.5 mg daily 6. Post-op atrial fibrillation [id number] (CHF, HTN, DM, vascular disease, thromboembolism) Eliquis 7. PAD 08/06/2017: Right 1st, 2nd, 3rd toe amputation 08/11/2017: Left??femoral arterial access, RLE??angiogram, Balloon angioplasty of R PT 10/25/2017: right popliteal-pedal bypass at [facility] 8. Hypothyrodism S/p thyroidectomy for goiter Levothyroxine [...] Zulma Dolan MD [facility] [address] [address] Liz Poole PA [facility] [place] [address] 06/10/2022 Office Visit Dermatology Laura Scherer MD [facility] [address] [place], [place] [address] (Wo rk) documented as of this encounter Visit Diagnoses Diagnosis Chronic systolic heart failure ASCVD (arteriosclerotic cardiovascular d isease) Unspecified cardiovascular disease Cardiomyopathy, ischemic Other specified forms of chronic ischemi c heart disease documented in this encounter Care Teams Family Independence Case Manager Relationship Specialty Start Date End Date Lovely Vicente MD PCP - General 04/16/[address] [place] [address] documented as of this encounter
--- OUTSIDE RECORDS SUMMARY | 2022-04-22 08:15 | XMS_ITS | Encounter Summary ---
:1945 Author Organization [facility] [place] [address] Care Team Providers Name Role Phone Lovely Vicente MD Primary Care Provider Reason for Visit Auth/Cert Specialty Diagnoses / Procedures Referred By Contact Refer red To Contact Diagnoses ASCVD (arteriosclerotic cardiovascular disease) [I25.10] Vitaliy Nobles MD [facility] Procedures PRO PERC TRLUML CORONARY STENT W/ANGIO ONE ART/BRANCH CARDIAC CATHETERIZATION STENT PLACEMENT-SINGLE MAJOR CORONARY ARTERY OR BRANCH [facility] [place] [address] Referral ID Status Reason Start Date Expiration Date Visits Requ ested Visits Authorized [id number] 1 1 Encounter Details Date Type Department Care Team Description 01/30/2022 Laboratory Lab 3L Katalina ASCVD (arterios clerotic Appointment [facility] cardiovas cular disease) [place] [address] Social History Tobacco Use Types Packs/Day Years [...] Dolan MD [facility] [place], [place] [address] (Wo rk) 05/28/2022 Laboratory Appointment Lab 05/28/2022 Office Visit Cardiology Zulma Dolan MD [facility] [place] [address] Liz Poole PA [facility] [place] [address] 06/10/2022 Office Visit Dermatology Laura Scherer MD [facility] DR [address] [place], [place] [address] (Wo rk) documented as of [...] (ABNORMAL) Differential, Automated (01/30/2022 7:19 AM EDT) [facility] gist Method Time Signature Neutrophils % 77.9 % [facility] LABORATORY Neutr Abs (ANC) 5.31 1.70 - [facility] 6.10 [facility] x10(3)/[facility] LABORATORY Lymphocytes % 12.0 % [facility] Lymphocytes Abs 0.8 (L) 0.9 - 3.2 [facility] x10(3)/[facility] LABORATORY Monocytes % 8.1 % [facility] Monocyte Abs 0.6 0.3 - 0.9 [facility] x10(3)/[facility] LABORATORY Eosinophils % 0.4 % [facility] Eosinophils Abs 0.0 0.0 - 0.4 [facility] x10(3)/[facility] LABORATORY Basophils % 0.6 % [facility] Basophils Abs 0.0 0.0 - 0.1 [facility] x10(3)/[facility] LABORATORY Immature Gran % 1.00 % [...] Organization Address City/State/[place] [address] (ABNORMAL) Hemogram (01/30/2022 7:19 AM EDT) Analysis Performed At Patho logist Time Signature WBC 6.8 4.0 - 9.5 [facility] x10(3)/[facility] LABORATORY RBC 4.32 (L) 4.58 - [facility] 5.54 [facility] x10(6)/[facility] LABORATORY Hemoglobin 13.0 (L) 13.7 - [facility] 16.5 g/dL [facility] LABORATORY Hematocrit 39.8 (L) 40.5 - [facility] 48.5 % [facility] LAB[facility] MCV 92.1 82.9 - [facility] 93.1 fL [facility] LABOR[facility]ORY MCH 30.1 27.5 - [facility] 32.1 pg [facility] LABORATORY MCHC 32.7 32.0 - [place] [facility] 35.7 g/dL [facility] LABORATORY Platelets 172 145 - 357 [facility] x10(3)/[facility] LABORATORY RDWSD 54.5 (H) 36.0 - [place] 45.0 [facility] LABORATORY RDWCV 16.2 (H) 11.4 - [facility] 13.8 % [facility] LABORATORY MPV 9.0 7.6 - 12.9 [facility] LABORATORY nRBC % Auto 0.0 % [facility] nRBC Abs Auto 0.000 0.000 - [facility] 0.000 [facility] x10(3)/[facility] LABORATORY Specimen Anatomical Collection Method Collection Time Receive d Time (Source) Location / / Volume Laterality Blood 01/30/2022 7:19 AM 7:21 EDT AM EDT Resulting Agency Comment Spec In Lab Zulma BROWN HEMATOLOGY ORDERABLES Performing Organization Address City/State/[place] [address] (ABNORMAL) Basic Metabolic Panel (non-fasting) (01/30/2022 7:19 AM EDT) P athologist Signature Glucose Lvl 237 (H) 65 - 199 [facility] mg/dL [facility] LABORATORY Comment: Diabetes: >=200 mg/dL plus symp toms BUN 34 (H) 10 - 20 mg/dL [facility] Creatinine 1.45 0.80 - 1.50 mg/dL [facility] [...] 107 mmol/L [facility] CO2 30 22 - 31 mmol/L [facility] Anion Gap 11 5 - 15 mmol/L [facility] Calcium 9.5 8.5 - 10.5 mg/dL [facility] LABORATORY Estimated GFR 50 (L) >=60 mL/min/1.73 m?? [facility] [...] City/State/ZIP Code Phon e Number [place] [id number] documented in this encounter Visit Diagnoses Diagnosis ASCVD (arteriosclerotic cardiovascular d isease) Unspecified cardiovascular disease documented in this encounter Care Teams Engineering Technology Instructor Relationship Specialty Start Date End Date Lovely Vicente MD PCP - General 04/16/[address] [place] [address] documented as of this encounter
--- OUTSIDE RECORDS SUMMARY | 2022-04-22 08:15 | XMS_ITS | Encounter Summary ---
:1945 Author Organization [facility] Address [facility] [place] [address] Care Team Providers Name Role Phone Lovely Vicente MD Primary Care Provider Reason for Visit Reason Onset Date Comments Medication Refill 03/06/2022 Metoprolol Succinate Encounter Details Date Type Department Care Team Description 03/06/2022 Refill Cardiology at [facility] Liz Poole PA Medication [facility] toprolol Succinate) [place] [address] Cardiology Dept [phone] [place], [place] [address] (Wo rk) Social History Tobacco [...] MD [facility] er [address] [place], [place] [address] (Wo rk) 05/28/2022 Laboratory Appointment Lab 05/28/2022 Office Visit Cardiology Zulma Dolan MD [facility] [place] [address] Liz Poole PA [facility] [place] [address] 06/10/2022 Office Visit Dermatology Laura Scherer MD [facility] ER DR [address] [place], [place] [address] (Wo rk) documented as of this encounter Visit Diagnoses Diagnosis Chronic systolic heart failure Cardiomyopathy, ischemic Other specified forms of chronic ischemi c heart disease documented in this encounter Care Teams Paper Box Maker Relationship Specialty Start Date End Date Lovely Vicente MD PCP - General 04/16/[address] [place] [address] documented as of this encounter
--- OUTSIDE RECORDS SUMMARY | 2022-04-22 08:15 | XMS_ITS | Clinical Summary ---
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; [...] MD [facility] er Dr [place] [address] (Wo rk) 05/28/2022 Laboratory Appointment Lab 05/28/2022 Office Visit Cardiology Zulma Dolan MD [facility] [address] [address] Liz Poole PA [facility] [place] [address] 06/10/2022 Office Visit Dermatology Laura Scherer MD [facility] ER DR [address] [place], [place] [address] (Wo rk) Health Maintenance Due Date Last Done Comments Covid-19 Vaccine (#1) 1950 Pneumoccocal Vaccine: 65+ (1 - PCV) 1952 Hepatitis C Screening 1964 Tdap adult 1965 Tetanus vaccine 1965 Zoster vaccine (1 of 2) 1996 Colonoscopy 01/16/2019 01/16/2014, 01/16/2014 Influenza (Flu) vaccine (1 of - 03/26/2022 03/29/2013, Influenza standard series) Medical Devices Implanted Type Area Trolley Coach Driver Device Shelf Model / Identifier Expiration Serial / Date Lot Cable,Cut,Edg,Blnt,Ss,3tpr ([id number]) - [id number] IMPLANTS Midline: [employer] 04/01/2022 [id number] / Implanted: Qty: 4 on 07/07/2017 by Yuan Retana MD at [facility] [employer] - / [id number] Procedures Procedure Name Priority Date/Time Associated Diagnosis [...] Time Signature WBC 7.2 4.0 - 9.5 [facility] x10(3)/[facility] LABORATORY RBC 4.41 (L) 4.58 - [facility] 5.54 [facility] x10(6)/[facility] LABORATORY Hemoglobin 13.2 (L) 13.7 - [place] [facility] 16.5 g/dL [facility] LABORATORY Hematocrit 40.9 40.5 - [place] [facility] 48.5 % [facility] MCV 92.7 82.9 - [facility] 93.1 [facility] LABORATORY MCH 29.9 27.5 - [place] [facility] [address] [facility] LABORATORY MCHC 32.3 32.0 - [place] [facility] 35.7 g/dL [facility]OR[facility] Platelets 191 145 - 357 [facility] x10(3)/[facility] LABORATORY RDWSD 53.6 (H) 36.0 - [place] 45.0 [facility] LABORATORY RDWCV 15.6 (H) 11.4 - [place] 13.8 % [facility]OR[facility] MPV 8.7 7.6 - 12.9 [facility] LABORATORY nRBC % Auto 0.0 % [facility] LABORATORY nRBC Abs Auto 0.000 0.000 - [facility] 0.000 [facility] x10(3)/[facility] LABORATORY Specimen Anatomical Collection Method Collection Time Receive d Time (Source) Location / / Volume Laterality Blood 02/19/2022 8:06 AM 8:09 EDT AM EDT Resulting Agency Comment Spec In Lab Liz BROWN HEMATOLOGY ORDERABLES Performing Organization Address City/State/[place] [address] (ABNORMAL) Differential, Automated (02/19/2022 8:06 AM EDT)Only the most recent of3 resultswithin the time period is included. [facility] Method Time Signature Neutrophils % 76.0 % [facility] LABOR[facility]ORY Neutr Abs (ANC) 5.49 1.70 - [facility] 6.10 [facility] x10(3)/[facility] LABORATORY Lymphocytes % 10.8 % [facility] LABORATORY Lymphocytes Abs 0.8 (L) 0.9 - 3.2 [facility] x10(3)/[facility] LABORATORY Monocytes % 10.2 % [facility] LABOR[facility]ORY Monocyte Abs 0.7 0.3 - 0.9 [facility] x10(3)/[facility] LABORATORY Eosinophils % 1.2 % [facility] LABOR[facility]ORY Eosinophils Abs 0.1 0.0 - 0.4 [facility] x10(3)/[facility] LABORATORY Basophils % 0.8 % [facility] LABORATORY Basophils Abs 0.1 0.0 - 0.1 [facility] x10(3)/[facility] LABORATORY Immature Gran % 1.00 % NOR[facility] [...] Liz BROWN HEMATOLOGY ORDERABLES Performing Organization Address City/[facility]/[place] [address] (ABNORMAL) pro-Brain Natriuretic Peptide (02/19/2022 8:06 AM EDT) P athologist Signature ProBNP 984 (H) <=449 pg/mL [facility] LABORATORY Specimen Anatomical Collection Method Collection Time Receive d Time (Source) Location / / Volume Laterality Blood 02/19/2022 8:06 AM 2 8:09 EDT AM EDT Resulting Agency Comment Spec In Lab Zulma Plunkett MD CHEMISTRY ORDERABLES Performing Organization Address City/[facility]/[place] [address] POCT Glucose (01/30/2022 1:41 PM EDT)Only the most recent of4 resultswithin the time period is included. P athologist Signature POC Glucose 148 65 - 199 [facility] mg/dL [facility] LABOR[facility]ORY Comment: Supplemental ranges: <140 mg/dL before meals <180 mg/dL all other times of the day Specimen Anatomical Collection Method Collection Time Receive d Time (Source) Location / / Volume Laterality Blood 01/30/2022 1:41 PM 2 1:41 EDT PM EDT Vitaliy Nobles MD POINT OF CARE TEST ORDERABLE S Performing Organization Address City/[facility]/ZIP Code Phon e Number [address] EKG 12 Lead (01/30/2022 10:33 AM EDT) Component Value Ref Range Test Analysis Performed Pathologis t Method Time At Signature Ventricular rate 64 BPM MUSE SYSTEM Atrial Rate 64 BPM MUSE SYSTEM P-R Interval 162 ms MUSE SYSTEM QRS Duration 94 ms MUSE SYSTEM Q-T Interval 422 ms MUSE SYSTEM QTC Calculated 435 ms MUSE SYSTEM (Bezet) Calculated P Keo 41 degrees MUSE SYSTEM Calculated R Keo -27 degrees MUSE SYSTEM Calculated T Keo 104 degrees MUSE SYSTEM INTERPRETATION Normal sinus rhythm MUSE SYSTEM Anterolateral infarct (cited on or before 09-DEC-2021) Abnormal ECG When compared with ECG of 10-DEC-2021 11:17, No significant change was found Confirmed by Gary Perez ([id number]) on 01/30/2022 5:57:5 2 PM Specimen Anatomical [...] PM EDT ?[facility] ? Cardiac Cathete rization/Intervention Report ? Patient Name: Génesis Fatimarory Mccollum. ? Procedure Date: 01/30/2022 ? A #: [id number] ? Primary Physician: Nobles, Vitaliy P ? Case #: [id number] ? File Name: [id number] ? Catheterization Order Number: [id number] ? [facility] ? Final Report [place], [place] ? Patient Name: ? Don E. Stewa rt ? ID#: ?[id number] ? : ?1945 ? Procedure Date: ? [...] ?designated as ASA Class III. [facility] clinical frailty scale is 5: Mildly [...] guiding catheter an d a 3.[address] ??20 Mhz ?using Manual pullback. ??Imagin [...] A premounted 2.00 x 26 mm Hardeep [place] (TUCKER) ? was deployed wi th a [...] Wedelivered along 2.0 x 26 mm HARDEEP Haskell ? TUCKER stent and p ositioned it [...] require ?modification of this regimen. C onsult [facility] Interventional Cardiology for ?questions. ?The 1 year [...] using a 2.0 x 26 mm HARDEEP [place] TUCKER stent. ?This completes the revasculariz ation [...] 03/06/2022 [facility] Cardiac Catheterization/Intervention Re port Patient Name: Don Fatima Procedure Date: 01/30/2022 A #: [id number] Primary Physician: Vitaliy Nobles Case #: [id number] File Name: [id number] Catheterization Order Number: [id number] [facility] Sports Leadership Instructor [facility] Final Report [place], [place] Patient Name: Don Fatima [...] 6 SLFr sheath was inserted in the [facility] radial artery utilizing the Seldinger technique. [...] 1.5 guiding catheter and a 3.[address] 20 Mhz using Manual pullback. Imaging [...] A premounted 2.00 x 26 mm Hardeep Haskell (TUCKER) was deployed with a maximum inflation [...] along 2. 0 x 26 mm HARDEEP Haskell TUCKER stent and positioned it at the [...] using a 2.0 x 26 mm HARDEEP [place] TUCKER stent. 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
--- OUTSIDE RECORDS SUMMARY | 2022-04-22 08:16 | XMS_ITS | Encounter Summary ---
:1945 [place] [address] Care Team Providers Name Role Phone Lovely Vicenet MD Primary Care Provider Encounter Details Date Type Department Care Team Description 12/30/2021 Notes Only [facility] [place] [address] Social History Tobacco Use Types Packs/Day [...] Failure team. DX: HFrEF. Referral placed to [facility] documented in this encounter Plan of Treatment Upcoming Encounters Date Type Specialty Care Team Description 05/28/2022 Appointment Cardiology Zulma Dolan MD [facility] [address] [place], [place] [address] (Wo rk) 05/28/2022 Laboratory Appointment Lab 05/28/2022 Office Visit Cardiology Zulma Dolan MD [facility] [place] [address] Liz Poole PA [facility] Dr [place] [address] 06/10/2022 Office Visit Dermatology Laura Scherer MD [facility] ER DR [address] [place], [place] [address] (Wo rk) documented as of this encounter Visit Diagnoses Not on filedocumented in this encounter Care Teams Electronic Parts Salesperson Relationship Specialty Start Date End Date Lovely Vicente MD PCP - General 04/16/[address] [place] [address] documented as of this encounter
--- OUTSIDE RECORDS SUMMARY | 2022-04-22 08:16 | XMS_ITS | Encounter Summary ---
:1945 Author Organization [facility] [place] [address] Care Team Providers Name Role Phone Lovely Vicente MD Primary Care Provider Encounter Details Date Type Department Care Team Description 12/24/2021 Orders Only Chef Passenger Vessel Zulma Finch ASCVD (art eriosclerotic [facility] cardiovascular disease) [facility] [place] [address] [place], [place] [phone] (Work) [phone] Social History Tobacco Use Types Packs/Day Years [...] Dolan MD [facility] [address] [place] [address] (Wo rk) 05/28/2022 Laboratory Appointment Lab 05/28/2022 Office Visit Cardiology Zulma Dolan MD [facility] [place] [address] Liz Poole PA [facility] [place] [address] 06/10/2022 Office Visit Dermatology Laura Scherer MD [facility] DR [address] [place], [place] [address] (Wo rk) documented as of this encounter Visit Diagnoses Diagnosis ASCVD (arteriosclerotic cardiovascular d isease) Unspecified cardiovascular disease documented in this encounter Care Teams Mlt Relationship Specialty Start Date End Date Lovely Vicente MD PCP - General 04/16/[address] [place] [address] documented as of this encounter
--- OUTSIDE RECORDS SUMMARY | 2022-04-22 08:16 | XMS_ITS | Encounter Summary ---
:1945 [place] [address] Care Team Providers Name Role Phone Lovely Vicente MD Primary Care Provider Encounter Details Date Type Department Care Team Description 12/25/2021 Office Visit Cardiology at [facility] Liz Poole, Chronic systolic heart [facility] [place] [address] Cardiology Dept [phone] [place], [place] [address] Social History Tobacco Use Types [...] As per DC Summary - Admitted to [facility] on 12/08/21, transferred from [facility], respiratory distress with hypoxia [...] mg PO daily in place of Lasix. Kegley is new for him and he will [...] Antiplatelet (DAPT) Recommendations above ? TTE from [facility] 12/08/21 ?? 07/28/2019 Echocardiogram: [...] regurgitation present. 07/07/2019 - 07/21/2019 Zio Patch Aoc Aadc Operations Staff Officer The patient had a minimum heart [...] hyperkalemia 4.9 today 6. Post-op atrial fibrillation [id number] (CHF, HTN, DM, vascular disease, thromboembolism) [...] [facility] [address], [place] [address] (Wo rk) 05/28/2022 Laboratory Appointment Lab 05/28/2022 Office Visit Cardiology Zulma Dolan MD [facility] [place] [address] Liz Poole PA [facility] [place] [address] 06/10/2022 Office Visit Dermatology Laura Scherer MD [facility] ER [address] [place], [place] [address] (Mikayla alcaraz) documented as of this encounter Results (ABNORMAL) pro-Brain Natriuretic Peptide (12/25/2021 7:46 AM EDT) athologist Signature ProBNP 1,380 (H) <=124 [facility]mL [facility] Specimen Anatomical Collection Method Collection Time Receive d Time (Source) Location / / Volume Laterality Blood 12/25/2021 7:46 AM 8:01 EDT AM EDT Resulting Agency Comment Spec In Lab Zulma Plunkett MD CHEMISTRY ORDERABLES Performing Organization Address City/State/[place] [address] (ABNORMAL) Basic Metabolic Panel (non-fasting) (12/25/2021 7:46 AM EDT) athologist Signature Glucose Lvl 272 (H) 65 - 199 [facility] mg/dL [facility] [...] Chloride 95 (L) 98 - 107 mmol/L [facility] CO2 28 22 - 31 mmol/L [facility] Anion Gap 11 5 - 15 mmol/L [facility] Calcium 9.4 8.5 - 10.5 mg/dL [facility] Estimated GFR 36 (L) >=60 mL/min/1.73 m?? [facility] [...] Organization Address City/State/[place] [address] documented in this encounter Visit Diagnoses Diagnosis Chronic systolic heart failure documented in this encounter Care Teams Library Science Instructor Relationship Specialty Start Date End Date Lovely Vicente MD PCP - General 04/16/[address] [place] [address] documented as of this encounter
--- OUTSIDE RECORDS SUMMARY | 2022-04-22 08:16 | XMS_ITS | Encounter Summary ---
:1945 Author Organization [facility] [place] [address] Care Team Providers Name Role Phone Lovely Vicente MD Primary Care Provider Encounter Details Date Type Department Care Team Description 12/12/2021 Telephone Cardiology at [facility] [place] [place] [address] Social History Tobacco Use Types Packs/Day [...] - 12/12/2021 11:36 AM EDT RTC to [facility]. regarding pharmacists questions as to whether the [...] MD [facility] [address] [place] [address] (Wo rk) 05/28/2022 Laboratory Appointment Lab 05/28/2022 Office Visit Cardiology Zulma Dolan MD [facility] [place] [address] Liz Poole PA [facility] [place] [address] 06/10/2022 Office Visit Dermatology Laura Scherer MD [facility] [address] [place], [place] [address] (Wo rk) documented as of this encounter Visit Diagnoses Not on filedocumented in this encounter Care Teams Galley Stripper Relationship Specialty Start Date End Date Lovely Vicente MD PCP - General 04/16/[address] [place] [address] documented as of this encounter
--- OUTSIDE RECORDS SUMMARY | 2022-04-22 08:16 | XMS_ITS | Encounter Summary ---
:1945 Author Organization [facility] [place] [address] Care Team Providers Name Role Phone Lovely Vicente MD Primary Care Provider Reason for Visit Reason Onset Date Comments Advice Only 01/28/2022 Encounter Details Date Type Department Care Team Description 01/28/[address] [facility] Chitra Angela, liner [place] [address] Social History Tobacco Use Types Packs/Day [...] Fatima assists patient with medications. Number for skilled labor scheduling given and she will call them to verify this information Meds reviewed. As per our form from skilled labor Eliquis hold for 48 hours prior. Pt [...] Dolan MD [facility] [place], [place] [address] (Wo rk) 05/28/2022 Laboratory Appointment Lab 05/28/2022 Office Visit Cardiology Zulma Dolan MD [facility] [place] [address] Liz Poole PA [facility] [place] [address] 06/10/2022 Office Visit Dermatology Laura Scherer MD [facility] [address] [place], [place] [address] (Wo rk) documented as of this encounter Visit Diagnoses Not on filedocumented in this encounter Care Teams Recreation Leader Relationship Specialty Start Date End Date Lovely Vicente MD PCP - General 04/16/[address] [place] [address] documented as of this encounter
--- OUTSIDE RECORDS SUMMARY | 2022-04-22 08:16 | XMS_ITS | Encounter Summary ---
:1945 Author Organization [place] [address] Care Team Providers Name Role Phone Lovely Vicente MD Primary Care Provider Reason for Visit Reason Onset Date Comments Medication Refill 12/12/2021 Torsemide Encounter Details Date Type Department Care Team Description 12/12/2021 Refill Cardiology at [facility] Janneth Padilla, Medication Refill [facility] STEPHANIE (Torsemide) [place] [address] CARDIOLOGY DEPT. [place], [place] [address] (Wo rk) Social History [...] MD [facility] [place], [place] [address] (Wo rk) 05/28/2022 Laboratory Appointment Lab 05/28/2022 Office Visit Cardiology Zulma Dolan MD [facility] [place] [address] Liz Poole PA [facility] [place] [address] 06/10/2022 Office Visit Dermatology Laura Scherer MD [facility] ER [address] [place], [place] [address] (Wo rk) documented as of this encounter Visit Diagnoses Diagnosis Chronic systolic heart failure documented in this encounter Care Teams Molecular Biology Director Relationship Specialty Start Date End Date Lovely Vicente MD PCP - General 04/16/[address] [place] [address] documented as of this encounter
--- OUTSIDE RECORDS SUMMARY | 2022-04-22 08:16 | XMS_ITS | Encounter Summary ---
:1945 Author Organization [facility] [place] [address] Care Team Providers Name Role Phone Lovely Vicente MD Primary Care Provider Encounter Details Date Type Department Care Team Description 12/25/2021 Laboratory Appointment Lab 3L [facility] [place] [phone] Social History Tobacco Use Types Packs/Day Years [...] Dolan MD [facility] [place] [address] (Wo rk) 05/28/2022 Laboratory Appointment Lab 05/28/2022 Office Visit Cardiology Zulma Dolan MD [facility] [place] [address] Liz Poole PA [facility] [place] [address] 06/10/2022 Office Visit Dermatology Laura Scherer MD [facility] [address] [place] [address] (Wo rk) documented as of this encounter [...] Automated (12/25/2021 7:46 AM EDT) [facility] gist Method Time Signature Neutrophils % 82.6 % [facility] Neutr Abs (ANC) 9.37 (H) 1.70 - [facility] 6.10 [facility] x10(3)/[facility] LABORATORY Lymphocytes % 7.1 % [facility] Lymphocytes Abs 0.8 (L) 0.9 - 3.2 [facility] x10(3)/[facility] LABORATORY Monocytes % 8.8 % [facility] Monocyte Abs 1.0 (H) 0.3 - 0.9 [facility] x10(3)/[facility] LABORATORY Eosinophils % 0.4 % [facility] Eosinophils Abs 0.0 0.0 - 0.4 [facility] x10(3)/[facility] LABORATORY Basophils % 0.4 % [facility] Basophils Abs 0.0 0.0 - 0.1 [facility] x10(3)/[facility] LABORATORY Immature Gran % 0.70 % [facility] [...] City/State/ZIP Code Phon e Number [place] [id number] (ABNORMAL) Hemogram (12/25/2021 7:46 AM EDT) Analysis Performed At Patho logist Time Signature WBC 11.4 (H) 4.0 - 9.5 [facility] x10(3)/[facility] LABORATORY RBC 4.23 (L) 4.58 - [facility] 5.54 [facility] x10(6)/[facility] LABORATORY Hemoglobin 12.3 (L) 13.7 - [facility] 16.5 g/dL [facility] Hematocrit 37.7 (L) 40.5 - [facility] RYAN 48.5 % [facility] LABORATORY MCV 89.1 82.9 - [facility] 93.1 [facility] LABORATORY MCH 29.1 27.5 - [place] 32.1 pg [facility] LABORATORY MCHC 32.6 32.[address] [facility] 35.7 g/dL [facility] Platelets 215 145 - 357 [facility] x10(3)/[facility] LABORATORY RDWSD 49.8 (H) 36.0 - [place] 45.0 [facility] RDWCV 15.2 (H) 11.4 - [facility] [place] 13.8 % [facility] LABORATORY MPV 9.2 7.6 - 12.9 [facility] LABORATORY nRBC % Auto 0.0 % [facility] nRBC Abs Auto 0.000 0.000 - [facility] 0.000 [facility] x10(3)/[facility] LABORATORY Specimen Anatomical Collection Method Collection Time Receive d Time (Source) Location / / Volume Laterality Blood 12/25/2021 7:46 AM 8:01 EDT AM EDT Resulting Agency Comment Spec In Lab Liz BROWN HEMATOLOGY ORDERABLES Performing Organization Address City/State/[place] [address] (ABNORMAL) Basic Metabolic Panel (non-fasting) (12/25/2021 7:46 AM EDT) P athologist Signature Glucose Lvl 272 (H) 65 - 199 [facility] mg/dL [facility] Comment: Diabetes: >=200 mg/dL plus symp toms BUN 62 (H) 10 - 20 mg/dL [facility] Creatinine 1.81 (H) 0.80 - 1.50 mg/dL [facility] Sodium 134 (L) 135 - 145 mmol/L [facility] Potassium 4.9 3.5 - 5.0 mmol/L [facility] [...] 15 mmol/L [facility] Calcium 9.4 8.5 - 10.5 mg/dL [facility] Estimated GFR 36 (L) >=60 [...] Address City/[facility]/ZIP [place] [address] (ABNORMAL) pro-Brain Natriuretic Peptide (12/25/2021 7:46 AM EDT) P athologist Signature ProBNP 1,380 (H) <=124 [facility] pg/mL [facility] Specimen Anatomical Collection Method Collection Time Receive d Time (Source) Location / / Volume Laterality Blood 12/25/2021 7:46 AM 2 8:01 EDT AM EDT Resulting Agency Comment Spec In Lab Zulma Plunkett MD CHEMISTRY ORDERABLES Performing Organization Address City/[facility]/ZIP [facility] [place] [address] documented in this encounter Visit Diagnoses Diagnosis Chronic systolic heart failure documented in this encounter Care Teams Craps Manager Relationship Specialty Start Date End Date Lovely Vicente MD PCP - General 04/16/[address] [place] [address] documented as of this encounter
--- OUTSIDE RECORDS SUMMARY | 2022-04-22 08:16 | XMS_ITS | Encounter Summary ---
:1945 Author Organization [facility] [place] [address] Care Team Providers Name Role Phone Lovely Vicente MD Primary Care Provider Encounter Details Date Type Department Care Team Description 12/15/2021 Telephone Cardiology at [facility] Barbara [place]era, [place] [address] Social History Tobacco Use Types Packs/Day [...] Zulma Dolan MD [facility] [place], [place] [address] (Wo rk) 05/28/2022 Laboratory Appointment Lab 05/28/2022 Office Visit Cardiology Zulma Dolan MD [facility] [place] [address] Liz Poole PA [facility] [place] [address] 06/10/2022 Office Visit Dermatology Laura Scherer MD [facility] [address] [place], [place] [address] (Wo rk) documented as of this encounter Visit Diagnoses Not on filedocumented in this encounter Care Teams Roll Edge Stitcher Hand Relationship Specialty Start Date End Date Lovely Vicente MD PCP - General 04/16/15 [facility] [address] [place] [address] documented as of this encounter
--- OUTSIDE RECORDS SUMMARY | 2022-04-22 08:16 | XMS_ITS | Encounter Summary ---
:1945 Author Organization [facility] [place] [address] Care Team Providers Name Role Phone Lovely Vicente MD Primary Care Provider Encounter Details Date Type Department Care Team Description 12/24/2021 Telephone Public [facility] at [facility] [place] [address] Social History Tobacco Use Types Packs/Day [...] MD [facility] [address] [place], [place] [address] (Wo rk) 05/28/2022 Laboratory Appointment Lab 05/28/2022 Office Visit Cardiology Zulma Dolan MD [facility] [place] [address] Liz Poole PA [facility] [place] [address] 06/10/2022 Office Visit Dermatology Laura Scherer MD [facility] ER [address] [place], [place] [address] (Wo rk) documented as of this encounter Visit Diagnoses Not on filedocumented in this encounter Care Teams Head Turning Machine Operator Relationship Specialty Start Date End Date Lovely Vicente MD PCP - General 04/16/[address] [place] [address] documented as of this encounter
--- OUTSIDE RECORDS SUMMARY | 2022-04-22 08:16 | XMS_ITS | Encounter Summary ---
:1945 Author Organization [facility] [place] [address] Care Team Providers Name Role Phone Lovely Vicente MD Primary Care Provider Reason for Referral Consultation (Routine) - Closed Specialty Diagnoses / Referred By Contact Referred To Contact Procedures Cardiac Rehabilitation Diagnoses Acute HFrEF (heart failure with reduced ejection fraction) Janneth Padilla, Cardiac Rehab, [address] [place] CARDIOLOGY DEPT. [address] [place] [address] Referral ID Status Reason Start Date Expiration Date Visits V isits Requested Authorized [id number] Closed Consult, 12/12/2021 12/12/2022 36 36 Test & Treat Reason for Visit Auth/Cert Specialty Diagnoses / Procedures Referred By Contact Refer red To Contact Diagnoses NSTEMI Procedures emerg ipi Referral ID Status Reason Start Date Expiration Date Visits Requ ested Visits Authorized [id number] 1 1 Encounter Details Date Type Department Care Team Description 12/08/2021 - Hospital Encounter Intermediate Cardiac Iker Cuevas MD [facility] [place] [address] Non-ST elevation myocardial infarction ( NSTEMI); 12/12/2021 Care Unit Ifeanyi Rene MD [facility] [place] [address] ST elevation myocardial infarction (STEM I), unspecified artery; [facility] Acute HFr EF (heart failure with reduced ejection fraction) [place] [address] Social History Tobacco Use Types Packs/Day Years [...] Don Fatima Patient Age: 76 y.o. Language: Japanese Race: White Ethnicity: Not [...] Peter PA-C Kelly LaFlamme PA-C Cardiovascular Medicine [phone] Discharge Diagnoses (Hospital Problems) and Secondary Diagnoses [...] 3.75 guiding catheter and a 3.5 Fr [facility] [place] 20 Mhz using Manual pullback. Imaging was successful. Image quality was good. The ostial LCX showed moderate diffuse atherosclerotic plaque with scattered three quadrant calcification. Measurements were performed after pre-dilation. Post Intervention: The stent was well expanded and apposed. Intravascular Ultrasound was performed in the distal LM using a 7 Fr EBU 3.75 guiding catheter and a 3.5 Fr [facility] [place] 20 Mhz using Manual pullback. Imaging was [...] may require modification of this regimen. Consult [facility] Interventional Cardiology for questions. The 1 year [...] vascular congestion and cardiomegaly. ?? TTE from [facility] 12/08/21 ? 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 ?? At [facility], respiratory distress with hypoxia 86% [...] mg PO daily in place of lasix. Strunk is new for him and he will [...] to be ~$24/mo; affordable per patient. Post [facility] he was started on Eliquis. He [...] appointments: During 8am-5pm Wednesday through Wednesday call [phone] to speak with a nurse in the cardiology clinic All other times call [phone] and ask to speak to the insulation board calender operator dairy feed sales consultant. Return to work: One week Driving: No driving for 48 hours after catheterization. Follow up Appointments: PCP Lovely Vicente MD [phone] to see patient at the end of December for annual check up. Patient to see Dr. Lorenzana at 1120 am at December 19 for a post hospital check up. Diet Attendant Dr. De Oliveira to see you in [facility]. Left a message for office to set a date and time. Please call [phone] Nobles to see the patient for a same day cath in 2-3 weeks from now. Office to call with a date and time. For questions please call [phone] Home oxygen therapy: N/A Arrangements for VNA/home care: none Future Appointments and Orders Future Orders Complete By Expires Basic Metabolic Panel (non-fasting) [LAB15 Custom] 12/19/2021 (Approximate) 12/12/2022 Process Instructions: INCLUDES: Calcium, BUN, Creat, GFR, Glucose, Lytes Scheduling Instructions: Comments: Questions: Referral to Cardiac Rehab [FXT572 Custom] As directed Process Instructions: If no [...] appointments: During 8am-5pm Wednesday through Wednesday call [phone] to speak with a nurse in the cardiology clinic All other times call [phone] and ask to speak to the insulation board calender operator dairy feed sales consultant. Return to work: One week Driving: No driving for 48 hours after catheterization. Follow up Appointments: PCP Lovely Vicente MD [phone] to see patient at the end of December for annual check up. Patient to see Dr. Lorenzana at 1120 am at December 19 for a post hospital check up. Diet Attendant Dr. De Oliveira to see you in [facility]. Left a message for office to set a date and time. Please call [phone] Nobles to see the patient for a same day cath in 2-3 weeks from now. Office to call with a date and time. For questions please call [phone] Home oxygen therapy: N/A Arrangements for VNA/home [...] Progress Note Patient Name: Don Fatima Service: TELE GROUT SEWER LINE REPAIRER / PA Responsible Attending: Ifeanyi Truong MD [...] was given Lasix 80mg IV x1 in phlebotomist medical lab assistant. Tolerated procedure well. Home today at 11 [...] 0.92* 0.89* Pertinent Radiographic/Diagnostic Results: R/[facility] 12/10/21 Hemodynamics: Right Heart Pressures Resting: [...] pulmonary vascular congestion and cardiomegaly. TTE from [facility] 12/08/21 Prior Cardiac Studies: TTE [...] with MD Janneth Neville PA 12/12/2021 Pager [phone] Associated attestation - Ifeanyi Truong MD - [...] ratio for each meal) Desirae Jett APRN [facility] Endocrinology Diabetes Management Pager [phone] 20 minutes of this 35 minute visit [...] Progress Note Patient Name: Don Fatima Service: TELE GROUT SEWER LINE REPAIRER / PA Responsible Attending: Iker Cuevas MD [...] was given Lasix 80mg IV x1 in phlebotomist medical lab assistant. Tolerated procedure well. Review of Systems: Review [...] 0.92* 0.89* Pertinent Radiographic/Diagnostic Results: R/[facility] 12/10/21 Hemodynamics: Right Heart Pressures Resting: [...] pulmonary vascular congestion and cardiomegaly. TTE from [facility] 12/08/21 Prior Cardiac Studies: TTE [...] and answered his questions. Iker Cuevas MD [facility] Total time spent on review of records prior to visit, face to face time with patient during visit, documentation, and coordination of care with other clinicians: 25 minutes. . Iker Cuevas MD - 12/10/2021 12:30 PM EDT Images from the original note were not included. Inpatient Cardiology Progress Note Patient Name: Don Fatima Service: TELE GROUT SEWER LINE REPAIRER / PA Responsible Attending: Iker Cuevas MD [...] was given Lasix 80mg IV x1 in phlebotomist medical lab assistant. Tolerated procedure well. Review of Systems: Review [...] ??? heparin (porcine) infusion 1,600 Units/hr (12/09/21 4309) PRN Meds:ipratropium-albuteroL, senna-docusate, bisacodyL, sodium chloride 0.9 [...] 0.92* 0.89* Pertinent Radiographic/Diagnostic Results: R/[facility] 12/10/21 Hemodynamics: Right Heart Pressures Resting: [...] pulmonary vascular congestion and cardiomegaly. TTE from [facility] 12/08/21 Prior Cardiac Studies: TTE [...] Discussed with MD Migdalia Peter PA-C Pager #[phone] 12/10/2021 Cardiology Attending Note I have seen [...] updated and given pictures. Iker Cuevas MD [facility] Total time spent on review of records prior to visit, face to face time with patient during visit, documentation, and coordination of care with other clinicians: 35 minutes. Iker Cuevas MD - 12/09/2021 7:28 AM EDT Images from the original note were not included. Inpatient Cardiology Progress Note Patient Name: Don Fatima Service: TELE GROUT SEWER LINE REPAIRER / PA Responsible Attending: Iker Cuevas MD [...] ??? heparin (porcine) infusion 1,600 Units/hr (12/09/21 9161) PRN Meds:ipratropium-albuteroL, sodium chloride 0.9 % (flush), [...] pulmonary vascular congestion and cardiomegaly. TTE from [facility] 12/08/21 Prior Cardiac Studies: TTE [...] Discussed with MD Migdalia Peter PA-C Pager #[phone] 12/09/2021 Cardiology Attending Note I have seen and examined the patient. I agree with the findings above. Developed CHF early this am despite getting more iv lasix last evening. Feeling better now. INR > 2. Lungs still wet at base. Echo at [facility] showed EF 35% with mild mod MR slightly lower than last value here. -vit K 2.5 orally to facilitate correction of INR- this will take 12-24 hours to take effect -furosemide 80 mg iv now -postpone right and left heart cath until tomorrow given INR and ADHF -increase statin to achieve LDL < 70 -CPAP tonight Iker Cuevas MD [facility] Total time spent on review of records [...] prior thyroidectomy in 2012 who presented to [facility] with 1 week progressing breathlessness [...] visit 03/2021 with Liz Poole PA-C. At [facility], respiratory distress with hypoxia 86% [...] SETUP performed by Manny Mcknight MD at [facility] OR ??? PRO AMPUTATION FOOT, TRANSMETATARSAL Right 08/09/2017 AMPUTATION, TRANSMETATARSAL (WRVU 12.71) performed by Yonathan Smith MD at [facility] OR ??? PRO CABG, ARTERIAL, SINGLE N/A 07/07/2017 @CABG, USING ARTERIAL GRAFT;SINGLE ARTERIAL GRAFT (WRVU 33.75) performed by Yuan Retana MD at [facility] OR ??? PRO CABG, ARTERY-VEIN, [...] IVAN) UNDER ANES. (WRVU 0.86) performed by Lamra Smith MD at [facility] OR ??? PRO ENDOSCOPY W/VIDEO-ASST VEIN HARVEST, CABG Right 07/07/2017 ENDOSCOPIC HARVEST VEIN(S) FOR CABG (WRVU 0.31) performed by Yuan Retana MD at [facility] OR ??? PRO THYROIDECTOMY 03/28/2013 [...] (H) 65 - 199 mg/dL Labs at [facility] 12/08/2021-troponin I 8004 (UN L [...] ADRs. Trend troponins. Admission EKG. [facility] 12/09; consented. TTE. Telemetry monitoring, daily [...] control; n.p.o. after midnight for [facility] #DVT prophy- heparin infusion #GI prophy- PPI Discussed with MD Morgan Peter PA-C APP2 pager [phone] 12/08/2021 Cardiology Attending Note I have seen [...] is type 1 due to graft or [place] coronary stenosis vs acute injury from CHF. 3. PAF: currrently in NSR. Have replaced warfarin with heparin 4. PAD: stable 5. DM: stable 6. CKD: will monitor and minimize contrast. Pt very appreciative of Dr. Yuan Retana's care in 2018. Will let him know patient is here. Iker Cuevas MD [facility] documented in this encounter Miscellaneous Notes Care [...] Type: *No Product type* / Secondary Insurance: eyeQ [place] Prescription Coverage: Yes This plan was [...] cath without complications. Migdalia Parker PA-C Pager #[phone] 12/10/2021 Initial Assessments - Nick Georges RN [...] COVID test: Lab Results Component Value Date [id number] Not Detected 12/08/2021 Past medical History: Past [...] spouse would be surrogate decision maker per [place] surrogate decision making law. (Only good for 180 days) Any patient receiving care at [facility] must abide by [place] law. The hierarchy for surrogate decision making [...] (i) The agent with financial power of regulatory attorney or a conservator appointed in accordance [...] standard, cane - straight Home Address: [address] [place] [address] [place] [address] Social & Family Supports: All names listed below confirmed with patient as current and correct Extended Emergency Contact Information Primary Emergency Contact: Kisha Fatima Address: [address] [place] [address] [place] [address] [facility] Mobile Relation: Spouse Secondary Emergency Contact: Elba Swenson Address: [address] Mobile Relation: Child Current Care Provided [...] Type: *No Product type* / Secondary Insurance: [employer] [facility] Prescription Coverage: Yes Preferred Pharmacy: [facility] Home Delivery [facility] [address] [facility] [address] - [address] [address] [place] [facility] Status: Patient is a : unable to assess Primary Care Provider: Lovely Vicente MD [phone] Patient/Caregiver Goals of Treatment: Get out of here Potential Needs for Transition of Care: none Agency Referrals: none patient has used [facility] in the past Transportation: no concerns Transportation Anticipated: family or friend will provide Concerns to be Addressed: patient refuses services, discharge planning Assessment: Patient is admitted to [facility] Service pager [phone] for 76 y.o.??male??with h/o??CAD s/p 3vCABG (THOMPSON-LAD, [...] status on current unit. Nick Georges RN housekeeper, Office of Care Management Pager: [phone] Brief Op Note - Vitaliy Nobles MD - 12/10/2021 8:31 AM EDT Images from the original note were not included. [facility] 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 Diabetes History: Don Fatima has had diabetes for 10 years. He has been on insulin for the last several years andis managed by his PCP. Lives in [place], [place] with his . States that he [...] Hold] heparin (porcine) infusion 1,600 Units/hr (12/09/21 6909) PRN: [SEP Hold] ipratropium-albuteroL, [SEP Hold] senna-docusate, [...] provide care for your patient Desirae Shaper AUTOMATIC FANCY MACHINE OPERATOR Endocrinology Pager [phone] 70 minutes of this [...] to remain on Med/Surg floor, please page [phone] for any further questions or concerns. LANDON PINEDA RN 5:23 AM December 09, 2021 Plan of Care - Morgan nAdrew PA - 12/08/2021 5:29 PM EDT Images [...] for further details. STEPHANIE Rebolledo 12/08/2021 Pager [phone] documented in this encounter Plan of Treatment Upcoming Encounters Date Type Specialty Care Team Description 05/28/2022 Appointment Cardiology Zulma Dolan MD [facility] [place], [place] [address] (Wo rk) 05/28/2022 Laboratory Appointment Lab 05/28/2022 Office Visit Cardiology Zulma Dolan MD [facility] [place] [address] Liz Poole PA [facility] [place] [address] 06/10/2022 Office Visit Dermatology Laura Scherer MD [facility] [address] [place], [place] [address] (Wo rk) Scheduled Referrals Name [...] POC Glucose 215 (H) 65 - 199 [facility] mg/dL [facility] [...] Organization Address City/State/Z[place] [address] (ABNORMAL) Differential, Automated (12/12/2021 4:51 AM EDT) athologist Signature Neutrophils % 75.4 % [facility] LABORATORY Neutr Abs (ANC) 5.95 1.70 - [facility] 6.10 [facility] x10(3)/[facility] LABORATORY Lymphocytes % 12.2 % [facility] LABORATORY Lymphocytes Abs 1.0 0.9 - 3.2 [facility] x10(3)/[facility] LABORATORY Monocytes % 9.5 % [facility] LABORATORY Monocyte Abs 0.8 0.3 - 0.9 [facility] x10(3)/[facility] LABORATORY Eosinophils % 1.8 % [facility] LABORATORY Eosinophils Abs 0.1 0.0 - 0.4 [facility] x10(3)/[facility] LABORATORY Basophils % 0.5 % [facility] LABORATORY Basophils Abs 0.0 0.0 - 0.1 [facility] x10(3)/[facility] LABORATORY Immature Gran % 0.60 % [...] Organization Address City/State/[place] [address] (ABNORMAL) Hemogram (12/12/2021 4:51 AM EDT) Analysis Performed At Patho logist Time Signature WBC 7.9 4.0 - 9.5 [facility] x10(3)/[facility] LABORATORY RBC 4.19 (L) 4.58 - [facility] 5.54 [facility] x10(6)/[facility] LABORATORY Hemoglobin 12.1 (L) 13.7 - [facility] g/dL [facility] LABORATORY Hematocrit 36.7 (L) 40.5 - [facility] 48.5 % [facility] LABORATORY MCV 87.[address] 82.[address] [facility] 93.1 fL [facility] LABORATORY MCH 28.9 27.5 - [facility] 32.1 pg [facility] LABORATORY MCHC 33.0 32.0 - [facility] 35.7 g/dL [facility] LABORATORY Platelets 231 145 - 357 [facility] x10(3)/[facility] LABORATORY RDWSD 47.2 (H) 36.0 - [place] 45.0 [facility] LABORATORY RDWCV 14.6 (H) 11.[address] [facility] [facility] 13.8 % [facility] LABORATORY MPV 9.5 7.6 - 12.9 [facility] LABORATORY nRBC % Auto 0.0 % [facility] LABORATORY nRBC Abs Auto 0.000 0.000 - [place] 0.000 [facility] x10(3)/[facility] LABORATORY Specimen Anatomical Collection Method Collection Time Receive d Time (Source) Location / / Volume Laterality Blood 12/12/2021 4:51 AM 2 5:06 EDT AM EDT Resulting Agency Comment Spec In Lab Bijan Sun MD HEMATOLOGY ORDERABLES Performing Organization Address City/[facility]/ZIP [place] [address] (ABNORMAL) Prothrombin Time (12/12/2021 4:51 AM EDT) P athologist Signature PT 14.9 (H) 9.4 - 12.5 [facility] LABORATORY INR 1.3 [facility] [...] Cuevas MD HEMATOLOGY ORDERABLES Performing Organization Address City/[facility]/ZIP [place] [address] (ABNORMAL) BMP w/fasting Glucose (12/12/2021 4:51 AM EDT) athologist Signature Glucose 152 (H) 65 - 99 [facility] Fasting mg/dL [facility] [...] of Diabetes Mellitus, Position Statement from the [place] [employer]. ??Diabete s Care, Volume 33, [...] Address City/State/ZIP [place] [address] Magnesium (12/12/2021 4:51 AM EDT) P athologist Signature Magnesium 1.02 0.69 - 1.07 [facility] mmol/L [facility] LABORATORY Specimen Anatomical Collection Method Collection Time Receive d Time (Source) Location / / Volume Laterality Blood 12/12/2021 4:51 AM 2 5:06 EDT AM EDT Resulting Agency Comment Spec In Lab Iker Cuevas MD CHEMISTRY ORDERABLES Performing Organization Address City/[facility]/ZIP [place] [address] POCT Glucose (12/12/2021 3:43 AM EDT) P athologist Signature POC Glucose 138 65 - 199 [facility] mg/dL [facility] [...] Address City/State/ZIP [place] [address] POCT Glucose (12/11/2021 11:44 [...] City/[facility]/ZIP [place] [address] (ABNORMAL) POCT Glucose (12/11/2021 8:12 PM EDT) athologist Signature POC Glucose 200 (H) 65 - 199 [facility] mg/dL [facility] - [...] City/[facility]/ZIP [place] [address] (ABNORMAL) POCT Glucose (12/11/2021 [...] Address City/State/ZIP [place] [address] (ABNORMAL) POCT Glucose (12/11/2021 4:00 PM EDT) P athologist Signature POC Glucose 383 (H) 65 - [address] [facility] mg/dL [facility] - [...] City/[facility]/ZIP [place] [address] (ABNORMAL) POCT Glucose (12/11/2021 12:01 PM EDT) athologist Signature POC Glucose 342 (H) 65 - 199 [facility] mg/dL [facility] - [...] City/[facility]/ZIP [place] [address] COVID-19 PCR (12/11/2021 10:13 AM EDT) [facility] gist Method Time Signature SARS-CoV-2 Not Detected Not Detected BARBARA RNA [facility] LABORATORY Comment: This result [...] diagnosis of COVID-19 is performed using the General Compression Dianna FRIEND S-CoV-2 Assay as authorized by the FDA Emergency Use Authorization (EUA). This EUA assay is intended for In-vitro Diagnostic (IVD) use with respiratory sp ecimens such as nasopharyngeal swabs collected from individuals during the ac citizen [place] phase of infection. This assay is performed based on the instructions for use provided by [employer] and additional guidance provided by CDC [...] fact sheets at the following FDA website: https://www.fda.gov/medical-devices/qslhnweodfk-jxzgrgt-2119-cmdcl-03-ysuvvwexq- zfy-jgwwcqonculldf-vmuurtt-devices/pjbtl-yygltrullrf-atao SARS-Cov-2 RNA Source TELE GROUT SEWER LINE REPAIRER Swab [facility] LABORATORY Specimen (Source) Anatomical Collection Method Collection Time Re ceived Time Location / / Volume Laterality Nasopharyngeal Swab 12/11/2021 10:13 05/03/2022 AM EDT 11:16 AM EDT Comment: Symptoms->Surveillance Resulting Agency Comment Spec In Lab Iker Cuevas MD MICROBIOLOGY - GENERAL ORDER [place] Performing Organization Address City/[facility] [place] [address] POCT Glucose (12/11/2021 7:34 AM EDT) athologist Signature POC Glucose 198 65 - [address] [facility] mg/dL [facility] - [...] City/[facility]/ZIP [place] [address] (ABNORMAL) POCT Glucose (12/11/2021 5:07 AM EDT) P athologist Signature POC Glucose 208 (H) 65 - 199 [facility] mg/dL [facility] - [...] City/[facility]/[place] [address] (ABNORMAL) Differential, Automated (12/11/2021 4:28 AM EDT) [facility] Method Time Signature Neutrophils % 79.6 % [facility] LABORATORY Neutr Abs (ANC) 7.01 (H) 1.70 - [facility] 6.10 [facility] x10(3)/[facility] LABORATORY Lymphocytes % 9.1 % [facility] LABORATORY Lymphocytes Abs 0.8 (L) 0.9 - 3.2 [facility] x10(3)/[facility] LABORATORY Monocytes % 9.2 % [facility] LABORATORY Monocyte Abs 0.8 0.3 - 0.9 [facility] x10(3)/[facility] LABORATORY Eosinophils % 1.3 % [facility] LABORATORY Eosinophils Abs 0.1 0.0 - 0.4 [facility] x10(3)/[facility] LABORATORY Basophils % 0.5 % [facility] LABORATORY Basophils Abs 0.0 0.0 - 0.1 [facility] x10(3)/[facility] LABORATORY Immature Gran % [...] Melisa Gran Abs 0.03 0.00 - 0.04 x10(3)/[facility] MAR Y [facility] LABORATORY Specimen Anatomical Collection Method Collection Time Receive d Time (Source) Location / / Volume Laterality Blood 12/11/2021 4:28 AM 4:37 EDT AM EDT Resulting Agency Comment Spec In Lab Bijan Sun MD HEMATOLOGY ORDERABLES Performing Organization Address City/[facility]/ZIP [place] [address] (ABNORMAL) Hemogram (12/11/2021 4:28 AM EDT) Analysis Performed At Patho logist Time Signature WBC 8.8 4.0 - 9.5 [facility] x10(3)/[facility] LABORATORY RBC 4.15 (L) 4.58 - [facility] 5.54 [facility] x10(6)/[facility] LABORATORY Hemoglobin 11.9 (L) 13.[address] [facility] 16.5 g/dL [facility] LABORATORY Hematocrit 36.9 (L) 40.[address] [facility] 48.5 % [facility] LABORATORY MCV 88.9 82.[address] [facility] 93.1 [facility] LABORATORY MCH 28.7 27.[address] [facility] 32.1 pg [facility] LABORATORY MCHC 32.2 32.0 [facility] 35.7 g/dL [facility] LABORATORY Platelets 211 145 - 357 [facility] x10(3)/[facility] LABORATORY RDWSD 48.3 (H) 36.[address] [facility] 45.0 [facility] LABORATORY RDWCV 14.8 (H) 11.[address] [facility] 13.8 % [facility] LABORATORY MPV 9.6 7.6 - 12.9 [facility] LABORATORY nRBC % Auto 0.0 % [facility] LABORATORY nRBC Abs Auto 0.000 0.000 - [facility] 0.000 [facility] x10(3)/[facility] LABORATORY Specimen Anatomical Collection Method Collection Time Receive d Time (Source) Location / / Volume Laterality Blood 12/11/2021 4:28 AM 2 4:37 EDT AM EDT Resulting Agency Comment Spec In Lab Bijan Sun MD HEMATOLOGY ORDERABLES Performing Organization Address City/State/[place] [address] (ABNORMAL) Prothrombin Time (12/11/2021 4:28 AM EDT) P athologist Signature PT 17.7 (H) 9.4 - 12.5 [facility] LABORATORY INR 1.6 [facility] [...] Address City/State/ZIP [place] [address] (ABNORMAL) BMP w/fasting Glucose (12/11/2021 4:28 AM EDT) athologist Signature Glucose 207 (H) 65 - 99 [facility] Fasting mg/dL [facility] [...] of Diabetes Mellitus, Position Statement from the [employer]. ??Diabete s Care, Volume 33, [...] Cuevas MD CHEMISTRY ORDERABLES Performing Organization Address City/[facility] [place] [address] Magnesium (12/11/2021 4:28 AM EDT) P athologist Signature Magnesium 1.04 0.69 - 1.07 [facility]/L [facility] LABORATORY Specimen Anatomical Collection Method Collection Time Receive d Time (Source) Location / / Volume Laterality Blood 12/11/2021 4:28 AM 2 4:37 EDT AM EDT Resulting Agency Comment Spec In Lab Iker Cuevas MD CHEMISTRY ORDERABLES Performing Organization Address City/State/ZIP Code Phon e Number [place] [id number] HOSPITAL LABORATORY [address] POCT Glucose (12/11/2021 3:58 [...] City/[facility]/ZIP [place] [address] (ABNORMAL) POCT Glucose (12/10/2021 [...] City/[facility]/ZIP [place] [address] (ABNORMAL) POCT Glucose (12/10/2021 [...] Organization Address City/State/ZIP [place] [address] Potassium (12/10/2021 7:46 PM EDT) athologist Signature Potassium 4.2 3.5 - 5.0 [facility] mmol/L [facility] [...] Cuevas MD CHEMISTRY ORDERABLES Performing Organization Address City/[facility]/ZIP [place] [address] (ABNORMAL) Basic Metabolic Panel (non-fasting) (12/10/2021 6:12 PM EDT) athologist Signature Glucose Lvl 246 (H) 65 - 199 [facility] mg/dL [facility] [...] Cuevas MD CHEMISTRY ORDERABLES Performing Organization Address City/[facility]/ZIP [place] [address] POCT Glucose (12/10/2021 4:59 PM EDT) P athologist Signature POC Glucose 158 65 - 199 [facility] mg/dL [facility] [...] Organization Address City/State/ZIP [place] [address] (ABNORMAL) POCT Glucose (12/10/2021 12:43 PM EDT) P athologist Signature POC Glucose 241 (H) 65 - 199 [facility] mg/dL [facility] [...] Address City/State/ZIP Code Phon [facility] Number [facility] [address] EKG 12 Lead (12/10/2021 11:17 AM EDT) Component Value Ref Range Test Analysis Performed Pathologis t Method Time At Signature Ventricular rate 62 BPM MUSE SYSTEM Atrial Rate 62 BPM MUSE SYSTEM P-R Interval 142 ms MUSE SYSTEM QRS Duration 100 ms MUSE SYSTEM Q-T Interval 434 ms MUSE SYSTEM QTC Calculated 440 ms MUSE SYSTEM (Bezet) Calculated P [place] 34 degrees MUSE SYSTEM Calculated R [place] -39 degrees MUSE SYSTEM Calculated T [place] 92 degrees MUSE SYSTEM INTERPRETATION Normal sinus [...] Laterality Volume Narrative 12/10/2021 12:04 PM EDT ?[facility] ? Cardiac Cathete rization/Intervention Report ? Patient Name: Don Fatima. ? Procedure Date: 12/10/2021 ? A #: [id number] ? Primary Physician: Nobles, Vitaliy P ? Case #: [id number] ? File Name: [id number] ? Catheterization Order Number: [id number] ? [facility] ? Final Report [place], [place] ? Patient Name: ? Don E. Stewa rt ? ID#: ?[id number] ? : ?1945 ? Procedure Date: ? December 10, 2021 ? Case #: ? [id number] ? Room: ? 1 ? Case Physician: [...] was ?designated as ASA Class III. e [facility] clinical frailty scale is 5: Mildly [...] procedure was Urgent. The indication for ?the phlebotomist medical lab assistant visit is ACS great er than 24 [...] ?3.75 guiding catheter and a 3.5 Fr [facility] [place] 20 Mhz using Manual ?pullback. ??Imaging was [...] ?3.75 guiding catheter and a 3.5 Fr [facility] [place] 20 Mhz using Manual ?pullback. ??Imaging was [...] require ?modification of this regimen. C [facility] Interventional Cardiology for ?questions. ?The 1 [...] Note Vitaliy Nobles MD - 01/14/2022 [facility] Cardiac Catheterization/Intervention Re port Patient Name: Kushal Don VedaMadiha Procedure Date: 12/10/2021 A #: [id number] Primary Physician: Vitaliy Nobles Case #: [id number] File Name: [id number] Catheterization Order Number: [id number] [facility] Final Report [place], [place] Patient Name: Don Fatima ID#: [...] e was Urgent. The indication for the phlebotomist medical lab assistant visit is ACS greater than 24 hrs [...] and a 3.5 Fr [facility] [place] 20 Mhz using Manual pullback. Imaging was [...] and a 3.5 Fr [facility] [place] 20 Mhz using Manual pullback. Imaging was successful. Image quality was good. The distal LM showed moderate diffuse atherosclero tic plaque. Post Intervention: The stent was well e xpanded and apposed. Indication for Intervention: Coronary intervention was indicated for primary therapy for an acute myocardial infarction. The priority for the procedure was Urgent. The [facility] indication for the procedure was N MARKIE-ACS. [...] require modification of this regimen. Consult D [facility] Interventional Cardiology for questions. The 1 year [...] POC Glucose 262 (H) 65 - 199 [facility] mg/dL [facility] [...] Organization Address City/State/Z[place] [address] (ABNORMAL) POCT Glucose (12/10/2021 9:48 AM EDT) athologist Signature POC Glucose 279 (H) 65 - 199 [facility] mg/dL [facility] [...] Address City/State/ZIP [place] [address] (ABNORMAL) POCT Glucose (12/10/2021 9:07 AM EDT) P athologist Signature POC Glucose 268 (H) 65 - 199 [facility] mg/dL [facility] [...] Address City/State/ZIP [place] [address] (ABNORMAL) Point of Care Blood Gas Historical (12/10/2021 9:04 AM EDT) Patholo gist Method Time Signature POC pH 7.40 7.35 - [facility] 7.45 [facility] LABORATORY POC PCO2 40 35 - 45 [facility] mmHg [facility] LABORATORY POC PO2 63 (L) 85 - 104 [facility] LABORATORY POC Base Excess 0.0 -3.0 - 3.0 [facility] mmol/L [facility] LABORATORY POC HCO3 24.8 20.0 - [facility] 26.0 [facility] mmol/[facility] LABORATORY POC Sodium 143 135 - 145 [facility] mmol/L [facility] LABORATORY POC Potassium 3.7 3.5 - 5.0 [facility] mmol/L [facility] LABORATORY POC Ionized Ca 1.07 (L) 1.15 - [facility] 1.33 [facility] mmol/L HOSPITAL LABORATORY POC Hematocrit 30.0 (L) 40.0 - [facility] 51.0 % [facility] LABORATORY POC Calc Hgb 10.2 (L) 13.7 - [facility] 17.5 g/dL [facility] [...] Truong MD CHEMISTRY ORDERABLES Performing Organization Address City/[facility]/ZIP [place] [address] (ABNORMAL) POCT Glucose (12/10/2021 7:19 AM EDT) athologist Signature POC Glucose 274 (H) 65 - 199 [facility] mg/dL [facility] [...] City/[facility]/ZIP [place] [address] Heparin (unfractionated) Level (12/10/2021 4:25 AM EDT) athologist Signature Heparin UFH 0.69 IU/mL [facility] [...] Address City/State/ZIP Code Phon e Number [address] (ABNORMAL) Differential, Automated (12/10/2021 4:25 AM EDT) [facility] Method Time Signature Neutrophils % 79.8 % [facility] LABORATORY Neutr Abs (ANC) 7.47 (H) 1.70 - [facility] 6.10 [facility] x10(3)/[facility] LABORATORY Lymphocytes % 10.6 % [facility] LABORATORY Lymphocytes Abs 1.0 0.9 - 3.2 [facility] x10(3)/[facility] LABORATORY Monocytes % 8.4 % [facility] LABORATORY Monocyte Abs 0.8 0.3 - 0.9 [facility] x10(3)/[facility] LABORATORY Eosinophils % 0.6 % [facility] LABORATORY Eosinophils Abs 0.1 0.0 - 0.4 [facility] x10(3)/[facility] LABORATORY Basophils % 0.2 % [facility] LABORATORY Basophils Abs 0.0 0.0 - 0.1 [facility] x10(3)/[facility] LABORATORY Immature Gran % [...] 0.04 0.00 - 0.04 x10(3)/mcL MAR Y [facility] LABORATORY Specimen Anatomical Collection Method Collection Time Receive d Time (Source) Location / / Volume Laterality Blood 12/10/2021 4:25 AM 4:34 EDT AM EDT Resulting Agency Comment Spec In Lab Morgan BROWN HEMATOLOGY ORDERABLES Performing Organization Address City/[facility]/ZIP Code Phon e Number [address] (ABNORMAL) Hemogram (12/10/2021 4:25 AM EDT) Analysis Performed At Patho logist Time Signature WBC 9.4 4.0 - 9.5 [facility] x10(3)/[facility] LABORATORY RBC 3.81 (L) 4.[address] [facility] [facility] 5.54 [facility] x10(6)/[facility] LABORATORY Hemoglobin 11.1 (L) 13.7 [facility] 16.5 g/dL [facility] LABORATORY Hematocrit 34.0 (L) 40.5 [facility] 48.5 % [facility] LABORATORY MCV 89.2 82.9 - [facility] 93.1 [facility] LABORATORY MCH 29.1 27.5 - [facility] 32.1 pg [facility] LABORATORY MCHC 32.6 32.0 - [facility] 35.7 g/dL [facility] LABORATORY Platelets 183 145 - 357 [facility] x10(3)/[facility] LABORATORY RDWSD 49.9 (H) 36.0 - [facility] 45.0 [facility] LABORATORY RDWCV 15.2 (H) 11.4 - [facility] 13.8 % [facility] LABORATORY MPV 9.8 7.6 - 12.9 [facility] LABORATORY nRBC % Auto 0.0 % [facility] LABORATORY nRBC Abs Auto 0.000 0.000 - [facility] 0.000 [facility] x10(3)/[facility] LABORATORY Specimen Anatomical Collection Method Collection Time Receive d Time (Source) Location / / Volume Laterality Blood 12/10/2021 4:25 AM 2 4:34 EDT AM EDT Resulting Agency Comment Spec In Lab Morgan BROWN HEMATOLOGY ORDERABLES Performing Organization Address City/State/Z[place] [address] (ABNORMAL) Prothrombin Time (12/10/2021 4:25 AM EDT) P athologist Signature PT 20.0 (H) 9.4 - 12.5 [facility] LABORATORY INR 1.7 [facility] [...] Organization Address City/State/ZIP Code Phon e Number [place] [id number] HOSPITAL LABORATORY Drive (ABNORMAL) BMP w/fasting Glucose (12/10/2021 4:25 AM EDT) athologist Signature Glucose 210 (H) 65 - 99 [facility] Fasting mg/dL [facility] [...] of Diabetes Mellitus, Position Statement from the [place] [employer]. ??Diabete s Care, Volume 33, [...] Organization Address City/State/Z[place] [address] Magnesium (12/10/2021 4:25 AM EDT) P athologist Signature Magnesium 0.95 0.69 - 1.07 [facility]/L [facility] LABORATORY Specimen Anatomical Collection Method Collection Time Receive d Time (Source) Location / / Volume Laterality Blood 12/10/2021 4:25 AM 2 4:34 EDT AM EDT Resulting Agency Comment Spec In Lab Iker Cuevas MD CHEMISTRY ORDERABLES Performing Organization Address City/[facility]/ZIP [place] [address] POCT Glucose (12/10/2021 1:58 AM EDT) athologist Signature POC Glucose 164 65 - 199 [facility] mg/dL [facility] - [...] City/[facility]/ZIP [place] [address] (ABNORMAL) POCT Glucose (12/09/2021 9:02 PM EDT) athologist Signature POC Glucose 313 (H) 65 - 199 [facility] mg/dL [facility] - [...] City/[facility]/ZIP [place] [address] Heparin (unfractionated) Level (12/09/2021 [...] Organization Address City/State/[place] [address] (ABNORMAL) Basic Metabolic Panel (non-fasting) (12/09/2021 7:30 PM EDT) athologist Signature Glucose Lvl 372 (H) 65 - 199 [facility] mg/dL [facility] [...] Address City/State/ZIP [place] [address] (ABNORMAL) POCT Glucose (12/09/2021 6:34 PM EDT) P athologist Signature POC Glucose 408 (H) 65 - [address] [facility] mg/dL [facility] - [...] City/[facility]/ZIP [place] [address] (ABNORMAL) POCT Glucose (12/09/2021 6:32 PM EDT) P athologist Signature POC Glucose 356 (H) 65 - [address] [facility] mg/dL [facility] - [...] Address City/State/ZIP [place] [address] (ABNORMAL) POCT Glucose (12/09/2021 4:19 PM EDT) athologist Signature POC Glucose 347 (H) 65 - 199 [facility] mg/dL [facility] [...] City/[facility]/ZIP [place] [address] Heparin (unfractionated) Level (12/09/2021 1:29 PM EDT) athologist Signature Heparin UFH 0.42 IU/mL [facility] [...] Address City/State/ZIP [place] [address] (ABNORMAL) POCT Glucose (12/09/2021 12:02 PM EDT) P athologist Signature POC Glucose 235 (H) 65 - 199 [facility] mg/dL [facility] - [...] City/[facility]/ZIP [place] [address] (ABNORMAL) POCT Glucose (12/09/2021 9:44 AM EDT) P athologist Signature POC Glucose 214 (H) 65 - 199 [facility] mg/dL [facility] - [...] City/[facility]/ZIP [place] [address] EKG 12 Lead (12/09/2021 7:57 AM EDT) Component Value Ref Range Test Analysis Performed Pathologis t Method Time At Signature Ventricular rate 101 BPM MUSE SYSTEM Atrial Rate 101 BPM MUSE SYSTEM P-R Interval 150 ms MUSE SYSTEM QRS Duration 112 ms MUSE SYSTEM Q-T Interval 364 ms MUSE SYSTEM QTC Calculated 471 ms MUSE SYSTEM (Bezet) Calculated P [place] 59 degrees MUSE SYSTEM Calculated R [place] -42 degrees MUSE SYSTEM Calculated T [place] 102 degrees MUSE SYSTEM INTERPRETATION Sinus tachycardia Occasional Premature ventricular com plexes MUSE SYSTEM Left axis deviation 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) Abnormal ECG When compared with ECG of 08-DEC-2021 16:40, Premature ventricular complexes are now Present Confirmed by MD Fernandez Danette ([id number]) on 12/10/2021 4:55:06 PM Specimen Anatomical Collection Method Collection Time Receive d Time (Source) Location / / Volume Laterality 12/09/2021 7:57 AM 2 4:55 EDT PM EDT Iker Cuevas MD ECG ORDERABLES Performing Organization Address City/State/ZIP Code Phon e Number MUSE SYSTEM (ABNORMAL) POCT Glucose (12/09/2021 7:28 AM EDT) P athologist Signature POC Glucose 263 (H) 65 - 199 [facility] mg/dL [facility] [...] Address City/State/ZIP [place] [address] (ABNORMAL) Hemoglobin A1c (12/09/2021 [...] Mellitus, Diabetes Care 2013; 36: Suppl. 1, J05-89 Est Avg Gluc See note mg/dL [place] [...] into estimated average glucose values. ??Diabetes Care 2008:31(8):3794-1053. Specimen Anatomical Collection Method Collection Time Receive d Time (Source) Location / / Volume Laterality Blood Venous Draw / 12/09/2021 6:18 AM 12/10/19 22 Unknown EDT 12:24 PM EDT Resulting Agency Comment Spec In Lab Migdalia BROWN CHEMISTRY ORDERABLES Performing Organization Address City/State/ZIP [place] [address] (ABNORMAL) Prothrombin Time (12/09/2021 6:18 AM EDT) athologist Signature PT 26.6 (H) 9.4 - 12.5 [facility] LABORATORY INR 2.3 [facility] [...] Migdalia BROWN HEMATOLOGY ORDERABLES Performing Organization Address City/[facility]/ZIP Code Phon e Number [address] Heparin (unfractionated) Level (12/09/2021 [...] Cuevas MD HEMATOLOGY ORDERABLES Performing Organization Address City/[facility]/ZIP [place] [address] (ABNORMAL) Differential, Automated (12/09/2021 6:18 AM EDT) Patholo gist Method Time Signature Neutrophils % 91.5 % [facility] LABORATORY Neutr Abs (ANC) 15.78 (H) 1.70 - [facility] 6.10 [facility] x10(3)/[facility] LABORATORY Lymphocytes % 2.9 % [facility] LABORATORY Lymphocytes Abs 0.5 (L) 0.9 - 3.2 [facility] x10(3)/[facility] LABORATORY Monocytes % 4.9 % [facility] LABORATORY Monocyte Abs 0.8 0.3 - 0.9 [facility] x10(3)/[facility] LABORATORY Eosinophils % 0.0 % [facility] LABORATORY Eosinophils Abs 0.0 0.0 - 0.4 [facility] x10(3)/[facility] LABORATORY Basophils % 0.2 % [facility] LABORATORY Basophils Abs 0.0 0.0 - 0.1 [facility] x10(3)/[facility] LABORATORY Immature Gran % 0.50 % [...] Organization Address City/State/Z[place] [address] (ABNORMAL) Hemogram (12/09/2021 6:18 AM EDT) Analysis Performed At Patho logist Time Signature WBC 17.2 (H) 4.0 - 9.5 [facility] x10(3)/[facility] LABORATORY RBC 4.32 (L) 4.58 - [facility] 5.54 [facility] x10(6)/[facility] LABORATORY Hemoglobin 12.6 (L) 13.[address] [facility] 16.5 g/dL [facility] LABORATORY Hematocrit 38.9 (L) 40.[address] [facility] 48.5 % [facility] LABORATORY MCV 90.0 82.[address] [facility] 93.1 [facility] LABORATORY MCH 29.2 27.5 - [facility] 32.1 pg [facility] LABORATORY MCHC 32.4 32.[address] [facility] 35.7 g/dL [facility] LABORATORY Platelets 193 145 - 357 [facility] x10(3)/[facility] LABORATORY RDWSD 50.4 (H) 36.[address] [facility] 45.0 [facility] LABORATORY RDWCV 15.2 (H) 11.[address] [facility] 13.8 % [facility] LABORATORY MPV 9.5 7.6 - 12.9 [facility] LABORATORY nRBC % Auto 0.0 % [facility] LABORATORY nRBC Abs Auto 0.000 0.000 - [facility] x10(3)/[facility] LABORATORY Specimen Anatomical Collection Method Collection Time Receive d Time (Source) Location / / Volume Laterality Blood 12/09/2021 6:18 AM 6:33 EDT AM EDT Resulting Agency Comment Spec In Lab Morgan BROWN HEMATOLOGY ORDERABLES Performing Organization Address City/State/Z[place] [address] Lipid Panel (Reflex Direct LDL) (12/09/2021 6:18 AM EDT) P athologist Signature Chol, Total 105 mg/dL [facility] LABORATORY Comment: Lower Risk: <200 mg/dL Average Risk: 200-239 mg/dL Higher Risk: >lv=383 mg/dL Triglycerides 133 mg/dL [facility] LABORATORY Comment: Average Risk/Lower Risk: <150 mg/dL Borderline High Risk: 150-199 mg/dL High Risk: 200-499 mg/dL Very High Risk: >ft=448 mg/dL HDL 42 mg/dL [facility] LABORATORY Comment: Males: ?? Higher Risk: <40 mg/dL Females: ?? Higher Risk: <50 mg/dL LDL Cholesterol 36 mg/dL [facility] LABORATORY Comment: Lowest Risk: <100 mg/dL Lower Risk: 100-129 mg/dL Borderline High Risk: 130-159 mg/dL High Risk: 160-189 mg/dL Very High Risk: >sf=293 mg/dL Chol/HDL Ratio 2.5 ratio [facility] LABORATORY Lipid Interpretation See Note [facility] LABORATORY Comment: Lipid management should be guided by a p atient? s ASCVD risk, goals and preferences. ACC/AHA Guidelines recommend high intens ity statin if clinical ASCVD or LDL greater than or equal to 190 mg/dL. [email or web address] Adults aged 40-75 with LDL 70-189 mg/dL should have their 10 year ASCVD risk estimated with the ACC/AHA ASCVD risk es timator http://tools.acc.org/MNQQA-Wxwr-Cvtibjar r/ Statin should be discussed if risk [...] Organization Address City/State/Z[place] [address] TSH (12/09/2021 6:18 AM EDT) athologist Signature TSH 1.60 0.27 - 4.20 [facility] mcIU/mL [facility] LABORATORY Comment: Reference Interval (mcIU/mL): Females: ??First Trimester: 0.23-3.88 ??Second Trimester: 0.22-3.90 ??Third Trimester: 0.44-4.66 Specimen Anatomical Collection Method Collection Time Receive d Time (Source) Location / / Volume Laterality Blood 12/09/2021 6:18 AM 2 6:33 EDT AM EDT Resulting Agency Comment Spec In Lab Iker Cuevas MD CHEMISTRY ORDERABLES Performing Organization Address City/[facility]/ZIP [place] [address] Hepatic Function Panel (12/09/2021 6:18 AM EDT) athologist Signature Total Protein 7.3 6.1 - 8.0 [facility] g/dL [facility] LABORATORY Albumin 4.2 3.2 - 5.2 [facility] g/dL [facility] LABORATORY AST 25 0 - 39 [facility] unit/L [facility] LABOR[facility]ORY ALT 15 0 - 55 [place] unit/L [facility] LABORATORY Alk Phos 75 40 - 130 [place] unit/L [facility] LABORATORY Total 1.1 0.2 - 1.3 [facility] Bilirubin mg/dL [facility] [...] Cuevas MD CHEMISTRY ORDERABLES Performing Organization Address City/[facility] [place] [address] (ABNORMAL) BMP w/fasting Glucose [...] of Diabetes Mellitus, Position Statement from the [place] [employer]. ??Diabete s Care, Volume 33, [...] Address City/State/ZIP Code Phon e Number [address] Magnesium (12/09/2021 6:18 AM EDT) P athologist Signature Magnesium 0.81 0.69 - 1.07 [facility] mmol/L [facility] LABORATORY Specimen Anatomical Collection Method Collection Time Receive d Time (Source) Location / / Volume Laterality Blood 12/09/2021 6:18 AM 2 6:33 EDT AM EDT Resulting Agency Comment Spec In Lab Iker Cuevas MD CHEMISTRY ORDERABLES Performing Organization Address City/State/ZIP [place] [address] (ABNORMAL) Troponin (12/09/2021 6:18 [...] Definition of Myocardial Infarction. Journal of the [place] College of Cardiology 2012;60:1581-98 Specimen Anatomical Collection Method Collection Time Receive d Time (Source) Location / / Volume Laterality Blood 12/09/2021 6:18 AM 6:33 EDT AM EDT Resulting Agency Comment Spec In Lab Iker Cuevas MD CHEMISTRY ORDERABLES Performing Organization Address City/State/ZIP Code Phon e Number [place] [id number] [address]OS[address] XR Chest One View [...] who have questions please contact the health laboratory animal care veterinarian that requested your imaging first. ? Narrative [...] ho have questions please contact the health laboratory animal care veterinarian that requested your imaging first. Amber Sanches MD IMG DX ORDERABLES (ABNORMAL) BLOOD GAS 2 ARTERIAL (12/09/2021 5:14 AM EDT) Analysis Performed At Path logis Time Signature pH Art 7.43 7.35 - [facility] 7.45 [facility] LABORATORY pCO2 Art 36 35 - 45 [facility] LABORATORY pO2 Art 67 (L) 85 - 104 [facility] LABORATORY HCO3 Art 23.4 20.0 - [facility] 26.0 [facility] mmol/L [facility] LABORATORY BE Art -0.9 -3.0 - 3.0 [facility] mmol/L [facility] LABORATORY Hgb Blood Gas 13.2 (L) 13.7 - [facility] 16.5 g/dL [facility] LABORATORY O2HB Art 91.3 (L) 94.0 - [facility] 97.0 % [facility] LABORATORY COHB Art 0.4 % [facility] PF Ratio Art 191 [facility] LABORATORY Specimen Anatomical Collection Method Collection Time Receive d Time (Source) Location / / Volume Laterality Blood 12/09/2021 5:14 AM 5:14 EDT AM EDT Iker Cuevas MD CHEMISTRY ORDERABLES Performing Organization Address City/State/[place] [address] POCT Glucose (12/09/2021 4:46 AM EDT) athologist Signature POC Glucose 198 65 - 199 [facility] mg/dL [facility] [...] Address City/State/ZIP [place] [address] (ABNORMAL) POCT Glucose (12/09/2021 [...] Address City/State/ZIP [place] [address] (ABNORMAL) POCT Glucose (12/08/2021 [...] Address City/State/ZIP [place] [address] Heparin (unfractionated) Level (12/08/2021 10:03 PM EDT) P athologist Signature Heparin UFH 0.18 IU/mL [facility] [...] IU/mL Thrombosis Prevention (eg. atrial fibril lation, ina-procedural bridging, mechanical valves): 0.3 ? 0.7 IU/mL [...] Organization Address City/State/[place] [address] (ABNORMAL) Troponin (12/08/2021 10:03 PM EDT) athologist Signature Troponin-T 0.92 (H) 0.00 - [facility] 0.00 ng/mL [facility] [...] Definition of Myocardial Infarction. Journal of the [place] College of Cardiology 2012;60:1581-98 Specimen Anatomical Collection Method Collection Time Receive d Time (Source) Location / / Volume Laterality Blood 12/08/2021 10:03 12/08/2021 PM EDT 10:31 PM EDT Resulting Agency Comment Spec In Lab Iker Cuevas MD CHEMISTRY ORDERABLES Performing Organization Address City/[facility]/ZIP [place] [address] (ABNORMAL) POCT Glucose (12/08/2021 8:22 PM EDT) athologist Signature POC Glucose 429 (H) 65 - 199 [facility] R[facility] mg/dL [facility] [...] City/[facility]/ZIP [place] [address] (ABNORMAL) POCT Glucose (12/08/2021 [...] City/[facility]/ZIP [place] [address] Magnesium (12/08/2021 6:02 PM EDT) athologist Signature Magnesium 0.86 0.69 - 1.07 [facility] mmol/L [facility] LABORATORY Specimen Anatomical Collection Method Collection Time Receive d Time (Source) Location / / Volume Laterality Blood 12/08/2021 6:02 PM 6:36 EDT PM EDT Resulting Agency Comment Spec In Lab Iker Cuevas MD CHEMISTRY ORDERABLES Performing Organization Address City/State/ZIP Code Phon e Number [address] (ABNORMAL) Basic Metabolic Panel (non-fasting) (12/08/2021 6:02 PM EDT) athologist Signature Glucose Lvl 392 (H) 65 - 199 [facility] mg/dL [facility] [...] Address City/State/ZIP [place] [address] (ABNORMAL) Differential, Automated (12/08/2021 6:02 PM EDT) [facility] gist Method Time Signature Neutrophils % 89.5 % [facility] LABORATORY Neutr Abs (ANC) 13.97 (H) 1.70 - [facility] 6.10 [facility] x10(3)/[facility] LABORATORY Lymphocytes % 3.7 % [facility] LABORATORY Lymphocytes Abs 0.6 (L) 0.9 - 3.2 [facility] x10(3)/[facility] LABORATORY Monocytes % 6.1 % [facility] LABORATORY Monocyte Abs 1.0 (H) 0.3 - 0.9 [facility] x10(3)/[facility] LABORATORY Eosinophils % 0.0 % [facility] LABORATORY Eosinophils Abs 0.0 0.0 - 0.4 [facility] x10(3)/[facility] LABORATORY Basophils % 0.2 % [facility] LABORATORY Basophils Abs 0.0 0.0 - 0.1 [facility] x10(3)/[facility] LABORATORY Immature Gran % 0.50 % [...] Organization Address City/State/[place] [address] (ABNORMAL) Hemogram (12/08/2021 6:02 PM EDT) Analysis Performed At Patho logist Time Signature WBC 15.6 (H) 4.0 - 9.5 [facility] LABORATORY RBC 4.05 (L) 4.58 - [facility] RYAN 5.54 [facility] x10(6)/[facility] LABORATORY Hemoglobin 11.8 (L) 13.[address] [facility] 16.5 g/dL [facility] LABORATORY Hematocrit 35.8 (L) 40.[address] [facility] 48.5 % [facility] LABORATORY MCV 88.4 82.9 - [facility] 93.1 [facility] LABORATORY MCH 29.1 27.5 - [facility] RYAN 32.1 pg [facility] LABORATORY MCHC 33.0 32.[address] [facility] 35.7 g/dL [facility] LABORATORY Platelets 178 145 - [address] [facility] x10(3)/[facility] LABORATORY RDWSD 49.3 (H) 36.0 - [facility] RYAN 45.0 [facility] LABORATORY RDWCV 15.1 (H) 11.4 - [facility] RYAN 13.8 % [facility] LABORATORY MPV 10.4 7.6 - 12.9 [facility] LABORATORY nRBC % Auto 0.0 % [facility] LABORATORY nRBC Abs Auto 0.000 0.000 - [place] 0.000 [facility] x10(3)/[facility] LABORATORY Specimen Anatomical Collection Method Collection Time Receive d Time (Source) Location / / Volume Laterality Blood 12/08/2021 6:02 PM 2 6:36 EDT PM EDT Resulting Agency Comment Spec In Lab Morgan BROWN HEMATOLOGY ORDERABLES Performing Organization Address City/State/ZIP Code Phon [place] [address] (ABNORMAL) Troponin (12/08/2021 6:02 [...] Definition of Myocardial Infarction. Journal of the [place] College of Cardiology 2012;60:1581-98 Specimen Anatomical Collection Method Collection Time Receive d Time (Source) Location / / Volume Laterality Blood 12/08/2021 6:02 PM 2 6:36 EDT PM EDT Resulting Agency Comment Spec In Lab Iker Cuevas MD CHEMISTRY ORDERABLES Performing Organization Address City/State/ZIP [place] [address] COVID-19 PCR (12/08/2021 5:00 PM EDT) [facility] Method Time Signature SARS-CoV-2 Not Detected [...] using the Simplexa COVID-19 Direct Assay by Cardium Therapeuticsjoi marcum as authorized by the FDA issued [...] of Pathology and Laboratory Medicine at [facility], certified under the Clinical [...] clinical management guidance information are available at [facility] Coronavirus Disease 2019 (COVID-19) webpage under Information fo r Healthcare Professionals (https://www.cdc.gov/coronavirus/2019-nc ov/hcp/index.html). Additional information about this and ot her EUA tests can be found in provider and patient fact sheets at the following FDA website: https://www.fda.gov/medical-devices/gxmujsiensv-gjvfskg-6682-uwcon-45-fhtwtsdfh- luz-cedxjpeacbzhmk-uaopwpv-devices/wzcvh-qaxhskuefhj-vlxy SARS-CoV-2 Source TELE GROUT SEWER LINE REPAIRER Swab [facility] LABORATORY Specimen (Source) Anatomical Collection Method Collection Time Re ceived Time Location / / Volume Laterality Nasopharyngeal Swab 12/08/2021 5:00 12/08 PM EDT 6:03 PM EDT Comment: Symptoms->Surveillance Resulting Agency Comment Spec In Lab Iker Cuevas MD MICROBIOLOGY - GENERAL ORDER ROBSON Performing Organization Address City/[facility] Phon e Number [place] [id number] HOSP[address] LAB[address]ORY Drive EKG 12 Lead (12/08/2021 4:40 PM EDT) Component Value Ref Range Test Analysis Performed Pathologis t Method Time At Signature Ventricular rate 78 BPM MUSE SYSTEM Atrial Rate 78 BPM MUSE SYSTEM P-R Interval 152 ms MUSE SYSTEM QRS Duration 96 ms MUSE SYSTEM Q-T Interval 396 ms MUSE SYSTEM QTC Calculated 451 ms MUSE SYSTEM (Bezet) Calculated P [place] 44 degrees MUSE SYSTEM Calculated R [place] -31 degrees MUSE SYSTEM Calculated T [place] 124 degrees MUSE SYSTEM INTERPRETATION Normal sinus [...] Cuevas MD ECG ORDERABLES Performing Organization Address City/[facility] Phon e Number MUSE SYSTEM (ABNORMAL) POCT Glucose (12/08/2021 4:34 PM EDT) P athologist Signature POC Glucose 400 (H) 65 - 199 [facility] mg/dL [facility] [...] Code [place] [address] documented in this encounter [...] DO NOT CRUSH OR OPEN, Routine 1230 ([facility] Unhold - Provider: Admin Adt) polyethylene glycoL [...] 40% oral geL(Linked Group 2) 0805 ([facility] Hold - Provider: Admin Adt - Reason: Transfer to a Procedural area)1230 ([facility] Unhold - Provider: Admin Adt) 15-30 g [...] (Intra-Procedure), Routine niCARdipine (Cardene) (100 mcg/mL) dilution (RV BODY MECHANIC) (CANCELED) 1030 (Given - Provider: Vitaliy Nobles [...] mg per tablet 1 tab let 0805 ([facility] Hold - Provider: Admin Adt - Reason: Transfer to a Procedural area)1230 ([facility] Unhold - Provider: Admin Adt) 1 tablet, Oral, 2 TIMES DAILY PRN, Start ing on Wed12/09/21 at 1628, Until Wed12/12/21 at 1312, Constipation, Routine sodium chloride 0.9 % (flush) (BD PosiFlush Normal Sean ine 0.9) flush 5-20 mL 0805 ([facility] Hold - Provider: Admin Adt - Reason: Transfer to a Procedural area)1230 ([facility] Unhold - Provider: Admin Adt) 5-20 mL, [...] episode. & nbsp; For persistent hypoglycemia, con industrial tech instructor longer-acting treatment for the duration of [...]
Routine documented in this encounter Care Teams Yacht Builder Relationship Specialty Start Date End Date Lovely Vicente MD PCP - General 04/16/15 [address] [place] [address] documented as of this encounter
--- OUTSIDE RECORDS SUMMARY | 2022-04-22 08:17 | XMS_ITS | Encounter Summary ---
:1945 Author Organization [facility] [place] [address] Care Team Providers Name Role Phone Lovely Vicente MD Primary Care Provider Encounter Details Date Type Department Care Team Description 12/07/2021 External Results Administration [facility] [place] [address] Social History Tobacco Use Types Packs/Day [...] [facility] [address] [place] [address] (Wo rk) 05/28/2022 Laboratory Appointment Lab 05/28/2022 Office Visit Cardiology Zulma Dolan MD [facility] [place] [address] Liz Poole PA [facility] [place] [address] 06/10/2022 Office Visit Dermatology Laura Scherer MD [facility] ER [address] [place], [place] [address] (Wo rk) documented as of [...] on filedocumented in this encounter Care Teams National Accounts Recruiter Relationship Specialty Start Date End Date Lovely Vicente MD PCP - General 04/16/[address] [place] [address] documented as of this encounter
--- OUTSIDE RECORDS SUMMARY | 2022-04-22 08:17 | XMS_ITS | Encounter Summary ---
:1945 [place] [address] Care Team Providers Name Role Phone Lovely Vicente MD Primary Care Provider Encounter Details Date Type Department Care Team Description 03/20/2021 Telephone Neurology at [facility] Hugo Gaston MD [facility] [place] [address] [place] [address] [phone] (Wo rk) Social History Tobacco Use Types [...] - 03/20/2021 6:03 PM EDT Call from [facility]. 76 M with h/o DM. CABG, [...] Gaston MD Department of Neurology Pager # [phone] documented in this encounter Plan of Treatment Upcoming Encounters Date Type Specialty Care Team Description 05/28/2022 Appointment Cardiology Zulma Dolan MD [facility] [place], [place] [address] (Wo rk) 05/28/2022 Laboratory Appointment Lab 05/28/2022 Office Visit Cardiology Zulma Dolan MD [facility] [place] [address] Liz Poole PA [facility] [place] [address] 06/10/2022 Office Visit Dermatology Laura Scherer MD [facility] [address] [place], [place] [address] (Wo rk) documented as of this encounter Visit Diagnoses Not on filedocumented in this encounter Care Teams Technology Program Manager Relationship Specialty Start Date End Date Lovely Vicente MD PCP - General 04/16/[address] [place] [address] documented as of this encounter
--- OUTSIDE RECORDS SUMMARY | 2022-04-22 08:17 | XMS_ITS | Encounter Summary ---
:1945 Author Organization [facility] [place] [address] Care Team Providers Name Role Phone Lovely Vicente MD Primary Care Provider Reason for Visit Reason Comments Establish Care Atrial Fibrillation Congestive Heart Failure Cardiomyopathy Encounter Details Date Type Department Care Team Description 09/06/[address] [facility] Ischemic [facility] Osvaldo STRANGE [address] [place], [place] CARDIOLOGY DEPT. [address] [place] [address] [phone] Social History Tobacco Use Types Packs/Day Years [...] today For any questions, call my office: [phone] To access your health care information, go to the web at: [email or web address] (you will need to register) For educational materials: [email or web address] Karel TRAMMELL.[facility], Clinical Cardiac Electrophysiology, [facility], [facility] A Healthy Heart: After Your Visit Heart [...] least 2 servings of fish a week. [place], mackerel, mcfadden, sardines, and chunk light tuna [...] irregular heartbeat. After you call 911, the slurry plant operator may tell you to chew [...] more? Visit our health information library at [email or web address]. You can also view health information on [employer], your personal patient account. Log in or sign up today. Enter F075 in the search box to learn more about A Healthy Heart: After Your Visit. ?? [phone] [employer] documented in this encounter Progress Notes Karel Mcelroy MD - 09/06/2019 2:20 PM EST Images from the original note were not included. Section of Cardiology/Cardiac Electrophysiology [facility] Clinical Cardiac Electrophysiology Consult Patient ID Don Fatima 1945 [id number] Don Fatima is referred to the EP clinic by Danette Maxwell APRN PhD Chief Complaint Dyspnea on exertion Ischemic cardiomyopathy History This is a 74 y.o. male following up/being seen in clinic for evaluation for ongoing anticoagulation. He has a Pemll1Tpdk score of ~ 6-7. 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, can walk [...] reviewed the ECG: sinus rhythm, 72 bpm, AL 140 ms, QRS 100 ms, QT 400 [...] EP clinic KAREL MCELROY MD Cardiac Electrophysiology [facility] T: [phone] F: [phone] 35 minutes of this 40 minute encounter were spent in counselling, as described above Cc: MD Danette Cr APRN PhD Janett Espino DPM documented in this encounter Plan of Treatment Upcoming Encounters Date Type Specialty Care Team Description 05/28/2022 Appointment Cardiology Zulma Dolan MD [facility] [place], [place] [address] (Wo rk) 05/28/2022 Laboratory Appointment Lab 05/28/2022 Office Visit Cardiology Zulma Dolan MD [facility] [place] [address] Liz Poole PA [facility] [place] [address] 06/10/2022 Office Visit Dermatology Laura Scherer MD [facility] [address] [place], [place] [address] (Wo rk) documented as [...] 446 ms MUSE SYSTEM (Bezet) Calculated P [place] 37 degrees MUSE SYSTEM Calculated R [place] -23 degrees MUSE SYSTEM Calculated T [place] 116 degrees MUSE SYSTEM INTERPRETATION Normal sinus rhythm MUSE SYSTEM Inferior infarct (cited on or before 25-JAN-2013) ST & T wave abnormality, consider anterolateral ischemia Abnormal ECG When compared with ECG of 19-AUG-2017 10:23, No significant change was found Confirmed by MD Cande, Michael ([id number]) on 09/08/2019 10:22:4 7 AM Specimen Anatomical [...] disease documented in this encounter Care Teams Head Of Cytogenetics Relationship Specialty Start Date End Date Lovely Vicente MD PCP - General 04/16/[address] [place] [address] documented as of this encounter
--- OUTSIDE RECORDS SUMMARY | 2022-04-22 08:17 | XMS_ITS | Encounter Summary ---
:1945 Author Organization [facility] [place] [address] Care Team Providers Name Role Phone Lovely Vicente MD Primary Care Provider Encounter Details Date Type Department Care Team Description 07/28/2019 Laboratory Appointment Lab 3L [facility] [place] [id number] Social History Tobacco Use Types Packs/Day Years [...] [facility] er [address] [place], [place] [address] (Wo rk) 05/28/2022 Laboratory Appointment Lab 05/28/2022 Office Visit Cardiology Zulma Dolan MD [facility] [place] [address] Liz Poole PA [facility] [place] [address] 06/10/2022 Office Visit Dermatology Laura Scherer MD [facility] [address] [place] [address] (Wo rk) documented as of this encounter [...] Organization Address City/State/[place] [address] (ABNORMAL) Basic Metabolic Panel (non-fasting) (07/28/2019 8:36 AM EST) athologist Signature Glucose Lvl 153 65 - 199 [facility] mg/dL [facility] LABORATORY [...] of body mass or the acutely ill. [email or web address]/[employer]ien[employer]kf eGFR 81 >=60 mL/min/1.73 m?? [facility] LABORATORY Comment: The eGFR was calculated using the CKD-EP I equation. As with all creatinine based estimates of kidney function, eGFR values calculated with the CKD-EPI equation are not accurate in patients wi th acute kidney failure, extremes of body mass or the acutely ill. [email or web address]/[facility] FAIRVIEWnkf Specimen Anatomical Collection Method Collection Time Receive d Time (Source) Location / / Volume Laterality Blood specimen 07/28/2019 8:36 AM 020 8:46 (specimen) EST AM EST Resulting Agency Comment Spec In Lab Danette Maxwell APRN CHEMISTRY ORDERABLES Performing Organization Address City/State/[place] [address] documented in this encounter Visit Diagnoses Diagnosis Chronic systolic heart failure documented in this encounter Care Teams Technical Developer Relationship Specialty Start Date End Date Lovely Vicente MD PCP - General 04/16/[address] [place] [address] documented as of this encounter
--- OUTSIDE RECORDS SUMMARY | 2022-04-22 08:17 | XMS_ITS | Encounter Summary ---
:1945 Author Organization [facility] [place] [address] Care Team Providers Name Role Phone Lovely Vicente MD Primary Care Provider Encounter Details Date Type Department Care Team Description 03/20/2021 Ancillary Procedure Radiology Library at [place] [address] [place] [address] [phone] Social History Tobacco Use Types Packs/Day Years [...] MD [facility] [place] [address] [place], [place] [address] (Wo rk) 05/28/2022 Laboratory Appointment Lab 05/28/2022 Office Visit Cardiology Zulma Dolan MD [facility] [place] [address] Liz Poole PA [facility] [place] [address] 06/10/2022 Office Visit Dermatology Laura Scherer MD [facility] ER [address] [place], [place] [address] (Wo rk) documented as of [...] Address City/State/ZIP Code Phon e Number [place], [place] documented in this encounter Visit Diagnoses Not on filedocumented in this encounter Care Teams Digital Marketing Lead Relationship Specialty Start Date End Date Lovely Vicente MD PCP - General 04/16/[address] [place] [address] documented as of this encounter
--- OUTSIDE RECORDS SUMMARY | 2022-04-22 08:17 | XMS_ITS | Encounter Summary ---
:1945 Author Organization [facility] [place] [address] Care Team Providers Name Role Phone Lovely Vicente MD Primary Care Provider Reason for Referral Diagnostic Test (Routine) - Closed Specialty Diagnoses / Procedures Referred By Contact Refer red To Contact Cardiology Diagnoses Chronic systolic heart failure Danette Maxwell APRN [facility] Non-Inv Card Lab Procedures Echocardiogram Transthoracic(Leb) [facility] [place] [address] [place] [address] Referral ID Status Reason Start Date Expiration Date Visits V isits Requested Authorized [id number] Closed Specialty 07/17/2019 09/14/2019 1 1 Service Requested Reason for Visit Diagnostic Test (Routine) - Closed Specialty Diagnoses / Procedures Referred By Contact Refer red To Contact Cardiology Diagnoses Chronic systolic heart failure Danette Maxwell APRN [facility] Non-Inv Card Lab Procedures Echocardiogram Transthoracic(Leb) [facility] [place] [address] [place] [address] Referral ID Status Reason Start Date Expiration Date Visits V isits Requested Authorized [id number] Closed Specialty 07/17/2019 09/14/2019 1 1 Service Requested Encounter Details Date Type Department Care Team Description 07/28/2019 Hospital Encounter Non-Invasive Chronic s ystolic heart [place] [address] Social History Tobacco Use Types Packs/Day [...] Dolan MD [facility] [address] [place], [place] [address] (Wo rk) 05/28/2022 Laboratory Appointment Lab 05/28/2022 Office Visit Cardiology Zulma Dolan MD [facility] [place] [address] Liz Poole PA [facility] [place] [address] 06/10/2022 Office Visit Dermatology Laura Scherer MD [facility] [address] [place], [place] [address] (Wo rk) documented as [...] Mccollum ? (Age): 1945(74y) Med Rec#: ? [id number] ?Sex: ?M ? Site Loc: ? [facility] ?Ht / Wt: ??172(cm)/81(kg) Pt. Loc: ?Echo Lab ?BSA: ?1.94 Study Date: ?? 07/28/2019 ?Pt. Type: Outpatient Tape: ? Referring: MARY ELLEN Reading: Ifeanyi Truong ([id number]) Vessel Crew Member: Fadumo Flanagan RDCS, FASE Diagnosis: *Chronic [...] E-wave Vmax ?1 ?m/sec ? MV deceleration drqp700.5 ? msec ? MV A-wave Vmax ?1 [...] ? Mid-Inferior ?Hypokinetic ? Mid-Inferoseptal ?Normal ? Woodruff-Septal ? Normal ? Woodruff-Anterior ? Hypokinetic ? Woodruff-Lateral ?Normal ? Woodruff-Inferior ? Akinetic ? Woodruff-Tip ?Hypokinetic ? This report has been electronically sign ed by: _ Ifeanyi Truong M.D. ? 07/28/2019 0 8:38:01 Images reviewed and interpretation verif ied [facility] Cardiac Ultrasound Laboratory Procedure Note Ifeanyi Truong MD - 07/28/2019Formatt ing of this note might be different from the original. Procedure: Transthoracic Echocardiogram Patient: NATALYA MCBRIDE(Age): [birth year]74y) Med Rec#: [id number] Sex: M Site Loc: [facility] Ht / Wt: 172(cm)/81(kg) Pt. Loc: Echo Lab BSA: 1.94 Study Date: 07/28/2019 Pt. Type: Outpati ent Tape: Referring: MARY ELLEN Reading: Ifeanyi Truong ([id number]) Vessel Crew Member: Fadumo Flanagan [facility] Diagnosis: *Chronic systolic (congestive) heart fa ilure [...] MV E-wave Vmax 1 m/sec MV deceleration [id number] msec MV A-wave Vmax 1 m/sec MV [...] Normal Mid-Posterolateral Normal Mid-Inferior Hypokinetic Mid-Inferoseptal Normal Woodruff-Septal Normal Woodruff-Anterior Hypokinetic Woodruff-Lateral Normal Woodruff-Inferior Akinetic Woodruff-Tip Hypokinetic This report has been electronically sign ed by: _ Ifeanyi Truong M.D. 07/28/2019 08:38:0 1 Images reviewed and interpretation elvie hwang [facility] Cardiac Ultrasound Laboratory Danette [...] Routine documented in this encounter Care Teams Cable Installer Repairer Relationship Specialty Start Date End Date Lovely Vicente MD PCP - General 04/16/[address] [place] [address] documented as of this encounter
--- OUTSIDE RECORDS SUMMARY | 2022-04-22 08:17 | XMS_ITS | Encounter Summary ---
:1945 Author Organization [facility] [place] [address] Care Team Providers Name Role Phone Lovely Vicente MD Primary Care Provider Encounter Details Date Type Department Care Team Description 12/08/2021 External Results Non-Invasive Cardiology Lab Mar y None [facility] [place] [address] Social History Tobacco Use Types Packs/Day [...] [facility] [place], [place] [address] (Wo rk) 05/28/2022 Laboratory Appointment Lab 05/28/2022 Office Visit Cardiology Zulma Dolan MD [facility] [place] [address] Liz Poole PA [facility] [place] [address] 06/10/2022 Office Visit Dermatology Laura Scherer MD [facility] [address] [place], [place] [...] on filedocumented in this encounter Care Teams Weather Algorithm Scientist Relationship Specialty Start Date End Date Lovely Vicente MD PCP - General 04/16/[address] [place] [address] documented as of this encounter
--- OUTSIDE RECORDS SUMMARY | 2022-04-22 08:17 | XMS_ITS | Encounter Summary ---
:1945 Author Organization [facility] [place] [address] Care Team Providers Name Role Phone Lovely Vicente MD Primary Care Provider Reason for Visit Auth/Cert Specialty Diagnoses / Procedures Referred By Contact Refer red To Contact Diagnoses NSTEMI Procedures emerg ipi Referral ID Status Reason Start Date Expiration Date Visits Requ ested Visits Authorized [id number] 1 1 Encounter Details Date Type Department Care Team Description 12/10/2021 Surgery Staff Pharmacist Hospital Asa Coulter MD CARDIAC CATHETERIZATION [facility] [place] [address] [place] [address] [phone] (Wo rk) Social History Tobacco Use Types [...] Don Fatima Patient Age: 76 y.o. Language: Australian Race: White Ethnicity: Not nor Admit date: [...] Peter PA-C Kelly LaFlamme PA-C Cardiovascular Medicine [phone] Discharge Diagnoses (Hospital Problems) and Secondary Diagnoses [...] 3.75 guiding catheter and a 3.5 Fr [facility] 20 Mhz using Manual pullback. Imaging was successful. Image quality was good. The ostial LCX showed moderate diffuse atherosclerotic plaque with scattered three quadrant calcification. Measurements were performed after pre-dilation. Post Intervention: The stent was well expanded and apposed. Intravascular Ultrasound was performed in the distal LM using a 7 Fr EBU 3.75 guiding catheter and a 3.5 Fr [facility] 20 Mhz using Manual pullback. Imaging was successful. Image quality was good. The distal LM showed moderate diffuse atherosclerotic plaque. Post Intervention: The stent was well expanded and apposed. Indication for Intervention: Coronary intervention was indicated for primary therapy for an acute myocardial infarction. The priority for the procedure was Urgent. The [facility] indication for the procedure was [...] require modification of this regimen. Consult [facility] Interventional Cardiology for questions. [...] and cardiomegaly. ?? TTE from [facility] 12/08/21 ? Prior Cardiac Studies: TTE [...] in 2012 who presented to [facility] with 1 week progressing breathlessness with [...] Liz Poole PA-C. ?? At [facility], respiratory distress with hypoxia 86% on [...] further IV methylprednisolone at this time. ?? #MARI AVICTORIA On CPAP at home but does not [...] appointments: During 8am-5pm Wednesday through Wednesday call [phone] to speak with a nurse in the cardiology clinic All other times call [phone] and ask to speak to the pathology laboratory aides teacher electronic masking system operator. Return to work: One week Driving: No driving for 48 hours after catheterization. Follow up Appointments: PCP oLvely Vicente MD [phone] to see patient at the end of December for annual check up. Patient to see Dr. Lorenzana at 1120 am at December 19 for a post hospital check up. Marketing Ambassador Dr. De Oliveira to see you in [facility]. Left a message for office to set a date and time. Please call [phone] Nobles to see the patient for a same day cath in 2-3 weeks from now. Office to call with a date and time. For questions please call [phone] Home oxygen therapy: N/A Arrangements for VNA/home care: none Future Appointments and Orders Future Orders Complete By Expires Basic Metabolic Panel (non-fasting) [LAB15 Custom] 12/19/2021 (Approximate) 12/12/2022 Process Instructions: INCLUDES: Calcium, BUN, Creat, GFR, Glucose, Lytes Scheduling Instructions: Comments: Questions: Referral to Cardiac Rehab [BCL865 Custom] As directed Process Instructions: If no [...] appointments: During 8am-5pm Wednesday through Wednesday call [phone] to speak with a nurse in the cardiology clinic All other times call [phone] and ask to speak to the pathology laboratory aides teacher electronic masking system operator. Return to work: One week Driving: No driving for 48 hours after catheterization. Follow up Appointments: PCP Lovely Vicente MD [phone] to see patient at the end of December for annual check up. Patient to see Dr. Lorenzana at 1120 am at December 19 for a post hospital check up. Marketing Ambassador Dr. De Oliveira to see you in [facility]. Left a message for office to set a date and time. Please call [phone] oNbles to see the patient for a same day cath in 2-3 weeks from now. Office to call with a date and time. For questions please call [phone] Home oxygen therapy: N/A Arrangements for VNA/home [...] Progress Note Patient Name: Don Fatima Service: BAND SPLITTER / PA Responsible Attending: Ifeanyi Truong MD [...] was given Lasix 80mg IV x1 in computer lab aide. Tolerated procedure well. Home today at [...] congestion and cardiomegaly. TTE from [facility] 12/08/21 Prior Cardiac Studies: TTE 07/28/2019 [...] with MD Janneth Neville PA 12/12/2021 Pager [phone] Associated attestation - Ifeanyi Truong MD - [...] for each meal) Desirae Jett APRN [facility] Endocrinology Diabetes Management Pager [phone] 20 minutes of this 35 minute visit [...] Progress Note Patient Name: Don Fatima Service: BAND SPLITTER / PA Responsible Attending: Iker Cuevas MD [...] was given Lasix 80mg IV x1 in computer lab aide. Tolerated procedure well. Review of Systems: [...] Intake/Output Summary (Last 24 hours) at 12/11/2021 0982 Last data filed at 12/11/2021 0508 Gross [...] congestion and cardiomegaly. TTE from [facility] 12/08/21 Prior Cardiac Studies: TTE 07/28/2019 [...] and answered his questions. Iker Cuevas MD [facility] Total time spent on review of records prior to visit, face to face time with patient during visit, documentation, and coordination of care with other clinicians: 25 minutes. . Iker Cuevas MD - 12/10/2021 12:30 PM EDT Images from the original note were not included. Inpatient Cardiology Progress Note Patient Name: Don Fatima Service: BAND SPLITTER / PA Responsible Attending: kIer Cuevas MD Reason for continued hospitalization: NSTEMI- [...] was given Lasix 80mg IV x1 in computer lab aide. Tolerated procedure well. Review of Systems: [...] TROPONINT 1.13* 0.92* 0.89* Pertinent Radiographic/Diagnostic Results: R/[facility] 12/10/21 Hemodynamics: Right Heart [...] congestion and cardiomegaly. TTE from [facility] 12/08/21 Prior Cardiac Studies: TTE 07/28/2019 [...] Discussed with MD Migdalia Peter PA-C Pager #[phone] 12/10/2021 Cardiology Attending Note I have seen [...] updated and given pictures. Iker Cuevas MD [facility] Total time spent on review of records prior to visit, face to face time with patient during visit, documentation, and coordination of care with other clinicians: 35 minutes. Iker Cuevas MD - 12/09/2021 7:28 AM EDT Images from the original note were not included. Inpatient Cardiology Progress Note Patient Name: Don Fatima Service: BAND SPLITTER / PA Responsible Attending: Iker Cuevas MD [...] congestion and cardiomegaly. TTE from [facility] 12/08/21 Prior Cardiac Studies: TTE 07/28/2019 [...] Discussed with MD Migdalia Peter PA-C Pager #[phone] 12/09/2021 Cardiology Attending Note I have seen and examined the patient. I agree with the findings above. Developed CHF early this am despite getting more iv lasix last evening. Feeling better now. INR > 2. Lungs still wet at base. Echo at [facility] showed EF 35% with mild mod MR slightly lower than last value here. -vit K 2.5 orally to facilitate correction of INR- this will take 12-24 hours to take effect -furosemide 80 mg iv now -postpone right and left heart cath until tomorrow given INR and ADHF -increase statin to achieve LDL < 70 -CPAP tonight Iker Taverass MD [facility] Total time spent on review of [...] in 2012 who presented to [facility] with 1 week progressing breathlessness with [...] with Liz Poole PA-C. At [facility], respiratory distress with hypoxia 86% on [...] [facility] ??? PRO AMPUTATION FOOT, TRANSMETATARSAL Right 08/09/2017 AMPUTATION, TRANSMETATARSAL (WRVU 12.71) performed by Yonathan Smith MD at [facility] [...] performed by Lamar Smith MD at [facility] ??? PRO ENDOSCOPY W/VIDEO-ASST VEIN HARVEST, CABG Right 07/07/2017 ENDOSCOPIC HARVEST VEIN(S) FOR CABG (WRVU 0.31) performed by Yuan Retana MD at [facility] ??? PRO THYROIDECTOMY 03/28/2013 THYROIDECTOMY, TOTAL OR COMPLETE performed by Manny Mcknight MD at [facility] Significant Family History: Family History [...] - 199 mg/dL Labs at [facility] 12/08/2021-troponin I 8004 (UN L <60), [...] Monitor for ADRs. Trend troponins. Admission EKG. [facility] 12/09; consented. TTE. Telemetry [...] code #Diet-carb control; n.p.o. after midnight for [facility] #DVT prophy- heparin infusion #GI prophy- PPI Discussed with MD Morgan Peter PA-C APP2 pager [phone] 12/08/2021 Cardiology Attending Note I have seen [...] is type 1 due to graft or [place] coronary stenosis vs acute injury from CHF. 3. PAF: currrently in NSR. Have replaced warfarin with heparin 4. PAD: stable 5. DM: stable 6. CKD: will monitor and minimize contrast. Pt very appreciative of Dr. Yuan Retana's care in 2018. Will let him know patient is here. Iker Cuevas MD [facility] documented in this encounter Miscellaneous Notes [...] Type: *No Product type* / Secondary Insurance: [employer] [place] Prescription Coverage: Yes This plan was [...] cath without complications. Migdalia Parker PA-C Pager #[phone] 12/10/2021 Initial Assessments - Nick Georges RN [...] COVID test: Lab Results Component Value Date [id number] Not Detected 12/08/2021 Past medical History: Past [...] days) Any patient receiving care at [facility] must abide by [place] law. The hierarchy [...] The agent with financial power of assistant attorney general or a conservator appointed in [...] standard, cane - straight Home Address: [address] [place] [address] [place] [address] Social & Family Supports: All names listed below confirmed with patient as current and correct Extended Emergency Contact Information Primary Emergency Contact: Kisha Fatima Address: [address] [place] [address] [place] [address] [facility] Mobile Relation: Spouse Secondary Emergency Contact: Elba Swenson Address: [place], [place] [id number] [place] [address] Mobile Relation: Child Current Care Provided by: [...] [facility] Prescription Coverage: Yes Preferred Pharmacy: [facility] [address] [address] - [place], [place] - [address] [address] [place] Status: Patient is a : unable to assess Primary Care Provider: Lovely Vicente MD [phone] Patient/Caregiver Goals of Treatment: Get out of here Potential Needs for Transition of Care: none Agency Referrals: none patient has used [facility] in the past Transportation: no concerns Transportation Anticipated: family or friend will provide Concerns to be Addressed: patient refuses services, discharge planning Assessment: Patient is admitted to [facility] Service pager [phone] for 76 y.o.??male??with h/o??CAD s/p 3vCABG (THOMPSON-LAD, [...] status on current unit. Nick Georges RN event host, Office of Care Management Pager: [phone] Brief Op Note - Vitaliy Nobles MD - 12/10/2021 8:31 AM EDT Images from the original note were not included. [place] [address] CORONARY ANGIOGRAM AND PERCUTANEOUS CORONARY INTERVENTION REPORT Patient: Don Fatima : 1945 MR number: [id number] Date of Service: 12/10/2021 Sports Physiologist: Vitaliy Nobles MD Fellow: [place] MD [...] review of long-term diabetes care. Diabetes History: Don Fatima has had diabetes for 10 years. He has been on insulin for the last several years andis managed by his PCP. Lives in [place], [place] with his . States that he [...] your patient Desirae Jett APRN Endocrinology Pager [phone] 70 minutes of this 80 minute visit [...] for further details. STEPHANIE Rebolledo 12/08/2021 Pager [phone] documented in this encounter Plan of Treatment Upcoming Encounters Date Type Specialty Care Team Description 05/28/2022 Appointment Cardiology Zulma Dolan MD [facility] [place], [place] [address] (Wo lissa) 05/28/2022 Laboratory Appointment Lab 05/28/2022 Office Visit Cardiology uZlma Dolan MD [facility] [place] [address] Liz Poole PA [facility] [place] [address] 06/10/2022 Office Visit Dermatology Laura Scherer MD [facility] DR TEJA [facility]DER[facility] [place], [place] [address] (Wo rk) Scheduled Referrals Name [...] [facility] mg/dL [facility] Comment: Supplemental ranges: <140 mg/dL before meals <180 mg/dL all other times of the day Specimen Anatomical Collection Method Collection Time Receive d Time (Source) Location / / Volume Laterality Blood 12/12/2021 7:42 AM 7:42 EDT AM EDT Ifeanyi Truong MD POINT OF CARE TEST ORDERABLE S Performing Organization Address City/State/Z[place] [address] (ABNORMAL) Differential, Automated (12/12/2021 4:51 AM EDT) athologist Signature Neutrophils % 75.4 % [facility] LABOR[facility]ORY Neutr Abs (ANC) 5.95 1.70 - [facility] 6.10 [facility] x10(3)/[facility] LABORATORY Lymphocytes % 12.2 % [facility] LAB[facility] Lymphocytes Abs 1.0 0.9 - 3.2 [facility] x10(3)/[facility] LABORATORY Monocytes % 9.5 % [facility] LAB[facility] Monocyte Abs 0.8 0.3 - 0.9 [facility] x10(3)/[facility] LABORATORY Eosinophils % 1.8 % [facility] Eosinophils Abs 0.1 0.0 - 0.4 [facility] x10(3)/[facility] LABORATORY Basophils % 0.5 % [facility] Basophils Abs 0.0 0.0 - 0.1 [facility] x10(3)/[facility] LABORATORY Immature Gran % 0.60 % [...] Address City/State/ZIP Code Phon e Number [address] (ABNORMAL) Hemogram (12/12/2021 4:51 AM EDT) Analysis Performed At Patho logist Time Signature WBC 7.9 4.0 - 9.5 [facility] x[facility](3[facility] LABORATORY RBC 4.19 (L) 4.58 - [place] 5.54 [facility] x10(6)/[facility] LABORATORY Hemoglobin 12.1 (L) 13.7 - [place] 16.5 g/dL [facility] Hematocrit 36.7 (L) 40.5 - [facility] 48.5 % [facility] MCV 87.6 82.9 - [facility] 93.1 [facility] LABORATORY MCH 28.9 27.5 - [place] 32.1 pg [facility] MCHC 33.0 32.0 - [place] 35.7 g/dL [facility] Platelets 231 145 - 357 [facility] x10(3)/[facility] LABORATORY RDWSD 47.2 (H) 36.0 - [facility] RYAN 45.0 [facility] LABORATORY RDWCV 14.6 (H) 11.4 - [facility] RYAN 13.8 % [facility] MPV 9.5 7.6 - 12.9 [facility] RYAN [facility] LABORATORY nRBC % Auto 0.0 % [facility] LAB[facility] nRBC Abs Auto 0.000 0.000 - [place] 0.000 [facility] x10(3)/[facility] LABORATORY Specimen Anatomical Collection Method Collection Time Receive d Time (Source) Location / / Volume Laterality Blood 12/12/2021 4:51 AM 2 5:06 EDT AM EDT Resulting Agency Comment Spec In Lab Bijan Sun MD HEMATOLOGY ORDERABLES Performing Organization Address City/[facility]/[place] [address] (ABNORMAL) Prothrombin Time (12/12/2021 4:51 AM EDT) athologist Signature PT 14.9 (H) 9.4 - 12.5 [facility] LABORATORY INR 1.3 [facility] [...] City/State/[place] [address] (ABNORMAL) BMP w/fasting Glucose (12/12/2021 4:51 AM EDT) athologist Signature Glucose 152 (H) 65 - 99 [facility] Fasting mg/dL [facility] Comment: ?Fasting* Glucose Interpretive C [...] of Diabetes Mellitus, Position Statement from the [place] [employer]. ??Diabete s Care, Volume 33, [...] Organization Address City/State/Z[place] [address] Magnesium (12/12/2021 4:51 AM EDT) athologist Signature Magnesium 1.02 0.69 - 1.07 [place] mmol/L [facility] LABOR[facility]ORY Specimen Anatomical Collection Method Collection Time Receive d Time (Source) Location / / Volume Laterality Blood 12/12/2021 4:51 AM 2 5:06 EDT AM EDT Resulting Agency Comment Spec In Lab Iker Cuevas MD CHEMISTRY ORDERABLES Performing Organization Address City/[facility]/ZIP Code Phon e Number [address] POCT Glucose (12/12/2021 3:43 AM EDT) athologist Signature POC Glucose 138 65 - 199 [place] mg/dL [facility] [...] Address City/State/ZIP Code Phon e Number [address] POCT Glucose (12/11/2021 11:44 PM EDT) athologist Signature POC Glucose 124 65 - 199 [place] mg/dL [place] [...] Address City/State/ZIP Code Phon e Number [address] (ABNORMAL) POCT Glucose (12/11/2021 [...] City/State/[place] [address] (ABNORMAL) POCT Glucose (12/11/2021 [...] City/State/[place] [address] (ABNORMAL) POCT Glucose (12/11/2021 4:00 PM EDT) P athologist Signature POC Glucose 383 (H) 65 - 199 [facility] RYAN mg/dL [facility] [...] City/State/[place] [address] (ABNORMAL) POCT Glucose (12/11/2021 [...] City/State/ZIP Code [place] [address] COVID-19 PCR (12/11/2021 10:13 AM EDT) [facility] Method Time Signature SARS-CoV-2 Not Detected [...] diagnosis of COVID-19 is performed using the [employer] S-CoV-2 Assay as authorized by the FDA Emergency Use Authorization (EUA). This EUA assay is intended for In-vitro Diagnostic (IVD) use with respiratory sp ecimens such as nasopharyngeal swabs collected from individuals during the ac cheesh-na phase of infection. This assay is performed based on the instructions for use provided by [employer] and additional guidance provided by CDC and FDA. Testing is performed in the Clinical Genomics and Advanced Technolog y Laboratory within the Department of Pathology and Laboratory Medicine at [facility], certified under the Clinical Laboratory [...] is infected. As required or requested by [facility], positive specimens may be sent for [...] fact sheets at the following FDA website: https://www.fda.gov/medical-devices/rrfacslfooz-stcwisp-5998-nktak-18-omiaelkbu- ala-nodcnrugbrbxik-branqgh-devices/deimy-iaeiogilzmn-gvix SARS-Cov-2 RNA Source BAND SPLITTER Swab [facility] LABORATORY Specimen (Source) Anatomical Collection Method Collection Time Re ceived Time Location / / Volume Laterality Nasopharyngeal Swab 12/11/2021 10:13 11/23 AM EDT 11:16 AM EDT Comment: Symptoms->Surveillance Resulting Agency Comment Spec In Lab Iker Cuevas MD MICROBIOLOGY - GENERAL ORDER [place] Performing Organization Address City/State/Z[place] [address] POCT Glucose (12/11/2021 7:34 AM EDT) P athologist Signature POC Glucose 198 65 - 199 [facility] mg/dL [facility] [...] City/State/[place] [address] (ABNORMAL) POCT Glucose (12/11/2021 5:07 AM EDT) P athologist Signature POC Glucose 208 (H) 65 - 199 [facility] mg/dL [facility] [...] City/State/[place] [address] (ABNORMAL) Differential, Automated (12/11/2021 4:28 AM EDT) Patholo gist Method Time Signature Neutrophils % 79.6 % [facility] LAB[facility]ORY Neutr Abs (ANC) 7.01 (H) 1.70 - [facility] 6.10 [facility] x10(3)/[facility] LABORATORY Lymphocytes % 9.1 % [facility] Lymphocytes Abs 0.8 (L) 0.9 - 3.2 [facility] x10(3)/[facility] LABORATORY Monocytes % 9.2 % [facility] LABOR[facility]ORY Monocyte Abs 0.8 0.3 - 0.9 [facility] x10(3)/[facility] LABORATORY Eosinophils % 1.3 % [facility] LABOR[facility]ORY Eosinophils Abs 0.1 0.0 - 0.4 [facility] x10(3)/[facility] LABORATORY Basophils % 0.5 % [facility] LABORATORY Basophils Abs 0.0 0.0 - 0.1 [facility] x10(3)/[facility] LABORATORY Immature Gran % 0.30 % [...] - 0.04 x10(3)/[facility] LAB[facility] Specimen Anatomical Collection Method Collection Time Receive d Time (Source) Location / / Volume Laterality Blood 12/11/2021 4:28 AM 4:37 EDT AM EDT Resulting Agency Comment Spec In Lab Bijan Sun MD HEMATOLOGY ORDERABLES Performing Organization Address City/State/ZIP Code Phon e Number [place] [id number] (ABNORMAL) Hemogram (12/11/2021 4:28 AM EDT) Analysis Performed At Patho logist Time Signature WBC 8.8 4.0 - 9.5 [facility] x10(3)/[facility] LABORATORY RBC 4.15 (L) 4.58 - [place] 5.54 [facility] x10(6)/[facility] LABORATORY Hemoglobin 11.9 (L) 13.7 - [facility] 16.[facility] g/dL [facility] LAB[facility] Hematocrit 36.9 (L) 40.5 - [facility] RYAN 48.5 % [facility] LAB[facility]ORY MCV 88.9 82.9 - [facility] RYAN 93.1 [facility] LABORATORY MCH 28.7 27.5 - [place] 32.1 pg [facility] LAB[facility]ORY MCHC 32.2 32.0 - [facility] 35.7 g/dL [facility] Platelets 211 145 - 357 [facility] x10(3)/[facility] LABORATORY RDWSD 48.3 (H) 36.0 - [facility] RYAN 45.0 [facility] LABORATORY RDWCV 14.8 (H) 11.4 - [facility] RYAN 13.8 % [facility] LAB[facility]AT[facility] MPV 9.6 7.6 - 12.9 [facility] LABORATORY nRBC % Auto 0.0 % [facility] LABORATORY nRBC Abs Auto 0.000 0.000 - [facility] 0.000 [facility] x10(3)/[facility] LABORATORY Specimen Anatomical Collection Method Collection Time Receive d Time (Source) Location / / Volume Laterality Blood 12/11/2021 4:28 AM 2 4:37 EDT AM EDT Resulting Agency Comment Spec In Lab Bijan Sun MD HEMATOLOGY ORDERABLES Performing Organization Address City/[facility]/ZIP [facility] [place] [address] (ABNORMAL) Prothrombin Time (12/11/2021 4:28 AM EDT) P athologist Signature PT 17.7 (H) 9.4 - 12.5 [facility] LABORATORY INR 1.6 [facility]/ZIP [place] [address] (ABNORMAL) BMP w/fasting Glucose (12/11/2021 4:28 AM EDT) P athologist Signature Glucose 207 (H) 65 - 99 [facility] Fasting mg/dL [facility] LABORATORY Comment: ?Fasting* Glucose Interpretive C [...] of Diabetes Mellitus, Position Statement from the [employer]. ??Diabete s Care, Volume 33, [...] [facility]/[place] [address] Magnesium (12/11/2021 4:28 AM EDT) athologist Signature Magnesium 1.04 0.69 - 1.07 [facility] mmol/L [facility] LABORATORY Specimen Anatomical Collection Method Collection Time Receive d Time (Source) Location / / Volume Laterality Blood 12/11/2021 4:28 AM 2 4:37 EDT AM EDT Resulting Agency Comment Spec In Lab Iker Cuevas MD CHEMISTRY ORDERABLES Performing Organization Address City/[facility]/ZIP Code Phon e Number [address] POCT Glucose (12/11/2021 3:58 AM EDT) athologist Signature POC Glucose 189 65 - 199 [facility] mg/dL [facility] [address] (ABNORMAL) POCT Glucose (12/10/2021 [...] [facility]/[place] [address] (ABNORMAL) POCT Glucose (12/10/2021 7:54 PM EDT) athologist Signature POC Glucose 225 (H) 65 - 199 [facility] mg/dL [facility] [...] [facility]/[place] [address] Potassium (12/10/2021 7:46 PM EDT) athologist [facility] Potassium 4.2 3.5 - 5.0 [facility] mmol/L [facility] LABORATORY Comment: Please note: ??Patients with [...] Organization Address City/[facility]/ZIP [facility] [place] [address] (ABNORMAL) Basic Metabolic Panel (non-fasting) (12/10/2021 6:12 PM EDT) athologist Signature Glucose Lvl 246 (H) 65 - 199 [facility] mg/dL [facility] [...] Address City/State/ZIP Code Phon e Number [address] POCT Glucose (12/10/2021 4:59 PM EDT) P athologist Signature POC Glucose 158 65 - 199 [facility] mg/dL [facility] [...] City/State/[place] [address] (ABNORMAL) POCT Glucose (12/10/2021 12:43 PM EDT) P athologist Signature POC Glucose 241 (H) 65 - 199 [facility] mg/dL [facility] [...] City/State/[place] [address] EKG 12 Lead (12/10/2021 11:17 AM EDT) Component Value Ref Range Test Analysis Performed Pathologis t Method Time At Signature Ventricular rate 62 BPM MUSE SYSTEM Atrial Rate 62 BPM MUSE SYSTEM P-R Interval 142 ms MUSE SYSTEM QRS Duration 100 ms MUSE SYSTEM Q-T Interval 434 ms MUSE SYSTEM QTC Calculated 440 ms MUSE SYSTEM (Bezet) Calculated P Holton 34 degrees MUSE SYSTEM Calculated R Holton -39 degrees MUSE SYSTEM Calculated T Holton 92 degrees MUSE SYSTEM INTERPRETATION Normal sinus rhythm MUSE SYSTEM Left axis deviation Minimal voltage criteria for LVH, may be normal variant ( [place] product ) Cannot rule out Inferior infarct [...] Laterality Volume Narrative 12/10/2021 12:04 PM EDT ?[facility] ? Cardiac Cathete rization/Intervention Report ? Patient Name: Don FatimaMadiha ? Procedure Date: 12/10/2021 ? A #: [id number] ? Primary Physician: Nobles, Vitaliy P ? Case #: [id number] ? File Name: [id number] ? Catheterization Order Number: [id number] ? [facility] ? Final Report [place], [place] ? Patient Name: ? Don E. Stewa rt ? ID#: ?[id number] ? : ?1945 ? Procedure Date: ? [...] procedure was Urgent. The indication for ?the computer lab aide visit is ACS great er than [...] ?3.75 guiding catheter and a 3.5 Fr [facility] 20 Mhz using Manual ?pullback. ??Imaging was [...] ?3.75 guiding catheter and a 3.5 Fr [facility] 20 Mhz using Manual ?pullback. ??Imaging was [...] require ?modification of this regimen. C [facility] Interventional Cardiology for ?questions. ?The 1 [...] Procedure Note Vitaliy Nobles MD - 01/14/2022 [facility] Cardiac Catheterization/Intervention Re port Patient Name: Don Fatima Procedure Date: 12/10/2021 A #: [id number] Primary Physician: Vitaliy Nobles Case #: [id number] File Name: [id number] Catheterization Order Number: [id number] [facility] Staff Pharmacist Hospital [facility] Final Report [place], [place] Patient Name: Don Fatima ID#: [...] Stent Insertion * Arterial Blood Gases History Dno Fatima is a 76 year old man. [...] e was Urgent. The indication for the computer lab aide visit is ACS greater than 24 [...] and a 3.5 Fr [facility] 20 Mhz using Manual pullback. Imaging was [...] and a 3.5 Fr [facility] 20 Mhz using Manual pullback. Imaging was [...] [facility] mg/dL [facility] [...] City/State/[place] [address] (ABNORMAL) POCT Glucose (12/10/2021 [...] [facility]/[place] [address] (ABNORMAL) POCT Glucose (12/10/2021 [...] City/State/[place] [address] (ABNORMAL) Point of Care Blood Gas Historical (12/10/2021 9:04 AM EDT) [facility] g[facility] Method Time Signature POC pH 7.40 7.35 - [facility] 7.45 [facility] LABORATORY POC PCO2 40 35 - 45 [facility] LABORATORY POC PO2 63 (L) 85 - 104 [facility] LABORATORY POC Base Excess 0.0 -3.0 - 3.0 [facility] K mmol/L [facility] LABORATORY POC HCO3 24.8 20.0 - [facility] 26.0 [facility] Sodium 143 135 - 145 [facility] mmol/L [facility] LABORATORY POC Potassium 3.7 3.5 - 5.0 [facility] mmol/L [facility] LABORATORY POC Ionized Ca 1.07 (L) 1.15 - [facility] 1.33 [facility] POC Hematocrit 30.0 (L) 40.0 - [facility] 51.0 % [facility] POC Calc Hgb 10.2 (L) 13.7 - [facility] 17.5 g/dL [facility] LABORATORY Comment: The calculation of hemoglobin f rom hematocrit assumes a normal MCHC. POC Bgas Loc CC LAB [facility] LABORATORY Specimen Anatomical Collection Method Collection Time Receive d Time (Source) Location / / Volume Laterality Blood 12/10/2021 9:04 AM 2 EDT 12:00 PM EDT Ifeanyi Truong MD CHEMISTRY ORDERABLES Performing Organization Address City/State/[place] [address] (ABNORMAL) POCT Glucose (12/10/2021 7:19 AM EDT) P athologist Signature POC Glucose 274 (H) 65 - 199 [facility] mg/dL [facility] LABORATORY Comment: Supplemental ranges: <140 mg/dL before meals <180 mg/dL all other times of the day Specimen Anatomical Collection Method Collection Time Receive d Time (Source) Location / / Volume Laterality Blood 12/10/2021 7:19 AM 2 7:19 EDT AM EDT Ikre Cuevas MD POINT OF CARE TEST ORDERABLE S Performing Organization Address City/State/[place] [address] Heparin (unfractionated) Level (12/10/2021 [...] City/State/ZIP Code Phon e Number [place] [id number] (ABNORMAL) Differential, Automated (12/10/2021 4:25 AM EDT) Patholo gist Method Time Signature Neutrophils % 79.8 % [facility] LABORATORY Neutr Abs (ANC) 7.47 (H) 1.70 - [facility] 6.10 [facility] x10(3)/[facility] L LABORATORY Lymphocytes % 10.6 % [facility] LAB[facility]ORY Lymphocytes Abs 1.0 0.9 - 3.2 [facility] x10(3)/[facility] LABORATORY Monocytes % 8.4 % [facility] LABOR[facility]ORY Monocyte Abs 0.8 0.3 - 0.9 [facility] x10(3)/[facility] LABORATORY Eosinophils % 0.6 % [facility] LABOR[facility]ORY Eosinophils Abs 0.1 0.0 - 0.4 [facility] x10(3)/[facility] LABORATORY Basophils % 0.2 % [facility] LABORATORY Basophils Abs 0.0 0.0 - 0.1 [facility] x10(3)/[facility] LABORATORY Immature Gran % 0.40 % [...] Melisa Gran Abs 0.04 0.00 - 0.04 x10(3)/[facility] LABORATORY Specimen Anatomical Collection Method Collection Time Receive d Time (Source) Location / / Volume Laterality Blood 12/10/2021 4:25 AM 4:34 EDT AM EDT Resulting Agency Comment Spec In Lab Morgan BROWN HEMATOLOGY ORDERABLES Performing Organization Address City/State/ZIP [place] [address] (ABNORMAL) Hemogram (12/10/2021 4:25 AM EDT) Analysis Performed At Patho logist Time Signature WBC 9.4 4.0 - 9.5 [facility] x10(3)/[facility] LABORATORY RBC 3.81 (L) 4.58 - [facility] 5.54 [facility] x10(6)/[facility] LABORATORY Hemoglobin 11.1 (L) 13.7 - [facility] 16.5 g/dL [facility] LABORATORY Hematocrit 34.0 (L) 40.5 - [facility] 48.5 % [facility] LABORATORY MCV 89.2 82.9 - [facility] 93.1 [facility] LABORATORY MCH 29.1 27.5 - [facility] 32.1 pg [facility] LABORATORY MCHC 32.6 32.0 - [facility] 35.7 g/dL [facility] LABORATORY Platelets 183 145 - 357 [facility] x10(3)/[facility] LABORATORY RDWSD 49.9 (H) 36.0 - [facility] YRAN 45.0 [facility] LABORATORY RDWCV 15.2 (H) 11.4 - [facility] 13.8 % [facility] LABORATORY MPV 9.8 7.6 - 12.9 [facility] LABORATORY nRBC % Auto 0.0 % [facility] LABORATORY nRBC Abs Auto 0.000 0.000 - [facility] DAVIS 0.000 [facility] x10(3)/[facility] LABORATORY Specimen Anatomical Collection Method Collection Time Receive d Time (Source) Location / / Volume Laterality Blood 12/10/2021 4:25 AM 2 4:34 EDT AM EDT Resulting Agency Comment Spec In Lab Morgan BROWN HEMATOLOGY ORDERABLES Performing Organization Address City/[facility]/ZIP Code Phon e Number [address] (ABNORMAL) Prothrombin Time (12/10/2021 4:25 AM EDT) P athologist Signature PT 20.0 (H) 9.4 - 12.5 [facility] LABORATORY INR 1.7 [facility] [...] [facility]/[place] [address] (ABNORMAL) BMP w/fasting Glucose (12/10/2021 4:25 AM EDT) P athologist Signature Glucose 210 (H) 65 - 99 [facility] Fasting mg/dL [facility] LABORATORY Comment: ?Fasting* Glucose Interpretive C [...] of Diabetes Mellitus, Position Statement from the [place] [employer]. ??Diabete s Care, Volume 33, [...] City/State/[place] [address] Magnesium (12/10/2021 4:25 AM EDT) athologist Signature Magnesium 0.95 0.69 - 1.07 [facility] mmol/L [facility] LABORATORY Specimen Anatomical Collection Method Collection Time Receive d Time (Source) Location / / Volume Laterality Blood 12/10/2021 4:25 AM 2 4:34 EDT AM EDT Resulting Agency Comment Spec In Lab Iker Cuevas MD CHEMISTRY ORDERABLES Performing Organization Address City/[facility]/[place] [address] POCT Glucose (12/10/2021 1:58 [...] [facility]/ZIP Code Phon e Number [address] (ABNORMAL) POCT Glucose (12/09/2021 [...] [facility]/[place] [address] Heparin (unfractionated) Level (12/09/2021 [...] Organization Address City/State/ZIP [place] [address] (ABNORMAL) Basic Metabolic Panel (non-fasting) (12/09/2021 7:30 PM EDT) athologist Signature Glucose Lvl 372 (H) 65 - 199 [facility] mg/dL [facility] [...] Organization Address City/State/[place] [address] (ABNORMAL) POCT Glucose (12/09/2021 [...] City/State/[place] [address] (ABNORMAL) POCT Glucose (12/09/2021 6:32 PM EDT) athologist Signature POC Glucose 356 (H) 65 - 199 [facility] mg/dL [facility] [...] [facility]/[place] [address] (ABNORMAL) POCT Glucose (12/09/2021 4:19 PM EDT) athologist Signature POC Glucose 347 (H) 65 - 199 [facility] mg/dL [facility] [...] City/State/[place] [address] Heparin (unfractionated) Level (12/09/2021 [...] City/State/[place] [address] (ABNORMAL) POCT Glucose (12/09/2021 12:02 PM EDT) athologist Signature POC Glucose 235 (H) 65 - 199 [facility] mg/dL [facility] [...] City/State/[place] [address] (ABNORMAL) POCT Glucose (12/09/2021 [...] [facility]/Z[place] [address] EKG 12 Lead (12/09/2021 7:57 AM EDT) Component Value Ref Range Test Analysis Performed Pathologis t Method Time At Signature Ventricular rate 101 BPM MUSE SYSTEM Atrial Rate 101 BPM MUSE SYSTEM P-R Interval 150 ms MUSE SYSTEM QRS Duration 112 ms MUSE SYSTEM Q-T Interval 364 ms MUSE SYSTEM QTC Calculated 471 ms MUSE SYSTEM (Bezet) Calculated P Holton 59 degrees MUSE SYSTEM Calculated R Holton -42 degrees MUSE SYSTEM Calculated T Holton 102 degrees MUSE SYSTEM INTERPRETATION Sinus tachycardia Occasional Premature ventricular com plexes MUSE SYSTEM Left axis deviation 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) Abnormal ECG When compared with ECG of 08-DEC-2021 16:40, Premature ventricular complexes are now Present Confirmed by MD Fernandez Danette ([id number]) on 12/10/2021 4:55:06 PM Specimen Anatomical Collection Method Collection Time Receive d Time (Source) Location / / Volume Laterality 12/09/2021 7:57 AM 2 4:55 EDT PM EDT Iker Cuevas MD ECG ORDERABLES Performing Organization Address City/State/ZIP Code Phon e Number MUSE SYSTEM (ABNORMAL) POCT Glucose (12/09/2021 7:28 AM EDT) P athologist Signature POC Glucose 263 (H) 65 - 199 [facility] mg/dL [facility] [...] City/State/ZIP Code Phon e Number [place] [phone]OS[address] Drive (ABNORMAL) Hemoglobin A1c (12/09/2021 [...] Mellitus, Diabetes Care 2013; 36: Suppl. 1, Q87-01 Est Avg Gluc See note mg/dL [place] [...] into estimated average glucose values. ??Diabetes Care 2008:31(8):6431-2539. Specimen Anatomical Collection Method Collection Time Receive d Time (Source) Location / / Volume Laterality Blood Venous Draw / 12/09/2021 6:18 AM 12/10/19 22 Unknown EDT 12:24 PM EDT Resulting Agency Comment Spec In Lab Migdalia BROWN CHEMISTRY ORDERABLES Performing Organization Address [facility] [place] [address] (ABNORMAL) Prothrombin Time (12/09/2021 6:18 AM EDT) athologist Signature PT 26.6 (H) 9.4 - 12.5 [facility] LABORATORY INR 2.3 [facility] [...] EDT Resulting Agency Comment Spec In Lab Midgalia BROWN HEMATOLOGY ORDERABLES Performing Organization Address [facility] [place] [address] Heparin (unfractionated) Level (12/09/2021 [...] Organization Address City/State/ZIP [place] [address] (ABNORMAL) Differential, Automated (12/09/2021 6:18 AM EDT) [facility] Method Time Signature Neutrophils % 91.5 % [facility] LABORATORY Neutr Abs (ANC) 15.78 (H) 1.70 - [facility] 6.10 [facility] x10(3)/[facility] LABORATORY Lymphocytes % 2.9 % [facility] LABORATORY Lymphocytes Abs 0.5 (L) 0.9 - 3.2 [facility] x10(3)/[facility] LABORATORY Monocytes % 4.9 % [facility] LABORATORY Monocyte Abs 0.8 0.3 - 0.9 [facility] x10(3)/[facility] LABORATORY Eosinophils % 0.0 % [facility] LABORATORY Eosinophils Abs 0.0 0.0 - 0.4 [facility] x10(3)/[facility] LABORATORY Basophils % 0.2 % [facility] LABORATORY Basophils Abs 0.0 0.0 - 0.1 [facility] x10(3)/[facility] LABORATORY Immature Gran % 0.50 % [...] Gran Abs 0.09 (H) 0.00 - 0.04 x10(3)/[facility] LABORATORY Specimen Anatomical Collection Method Collection Time Receive d Time (Source) Location / / Volume Laterality Blood 12/09/2021 6:18 AM 6:33 EDT AM EDT Resulting Agency Comment Spec In Lab Morgan BROWN HEMATOLOGY ORDERABLES Performing Organization Address City/State/ZIP [place] [address] (ABNORMAL) Hemogram (12/09/2021 6:18 AM EDT) Analysis Performed At Patho logist Time Signature WBC 17.2 (H) 4.0 - 9.5 [facility] x10(3)/[facility] LABORATORY RBC 4.32 (L) 4.58 - [facility] 5.54 [facility] x10(6)/[facility] LABORATORY Hemoglobin 12.6 (L) 13.7 - [facility] 16.5 g/dL [facility] LABORATORY Hematocrit 38.9 (L) 40.5 - [facility] 48.5 % [facility] LABORATORY MCV 90.0 82.9 - [facility] 93.1 [facility] LABORATORY MCH 29.2 27.5 - [facility] 32.1 pg [facility] LABORATORY MCHC 32.4 32.0 - [facility] 35.7 g/dL [facility] LABORATORY Platelets 193 145 - 357 [facility] x10(3)/[facility] LABORATORY RDWSD 50.4 (H) 36.0 - [facility] RYAN 45.0 [facility] LABORATORY RDWCV 15.2 (H) 11.4 - [facility] 13.8 % [facility] LABORATORY MPV 9.5 7.6 - 12.9 [facility] LABORATORY nRBC % Auto 0.0 % [facility] LABORATORY nRBC Abs Auto 0.000 0.000 - [facility] 0.000 [facility] x10(3)/[facility] LABORATORY Specimen Anatomical Collection Method Collection Time Receive d Time (Source) Location / / Volume Laterality Blood 12/09/2021 6:18 AM 6:33 EDT AM EDT Resulting Agency Comment Spec In Lab Morgan BROWN HEMATOLOGY ORDERABLES Performing Organization Address City/State/Z[place] [address] Lipid Panel (Reflex Direct LDL) (12/09/2021 6:18 AM EDT) athologist Signature Chol, Total 105 mg/dL [facility] LABORATORY Comment: Lower Risk: <200 mg/dL Average Risk: 200-239 mg/dL Higher Risk: >oi=195 mg/dL Triglycerides 133 mg/dL [facility] LABORATORY Comment: Average Risk/Lower Risk: <150 mg/dL Borderline High Risk: 150-199 mg/dL High Risk: 200-499 mg/dL Very High Risk: >cd=964 mg/dL HDL 42 mg/dL [facility] LABORATORY Comment: Males: ?? Higher Risk: <40 mg/dL Females: ?? Higher Risk: <50 mg/dL LDL Cholesterol 36 mg/dL [facility] LABORATORY Comment: Lowest Risk: <100 mg/dL Lower Risk: 100-129 mg/dL Borderline High Risk: 130-159 mg/dL High Risk: 160-189 mg/dL Very High Risk: >jy=384 mg/dL Chol/HDL Ratio 2.5 ratio [facility] LABORATORY Lipid Interpretation See Note [facility] LABORATORY Comment: Lipid management should be guided by a p atient? s ASCVD risk, goals and preferences. ACC/AHA Guidelines recommend high intens ity statin if clinical ASCVD or LDL greater than or equal to 190 mg/dL. http://tinyurl.com/MYQ-XTH-Gqwerysqu Adults aged 40-75 with LDL 70-189 mg/dL should have their 10 year ASCVD risk estimated with the ACC/AHA ASCVD risk es timator http://tools.acc.org/QHZZL-Leyx-Bwssnoni r/ Statin should be discussed if risk [...] [facility]/ZIP Code Phon e Number [address] TSH (12/09/2021 6:18 AM EDT) P athologist Signature TSH 1.60 0.27 - 4.20 CmxtwentyCK mcIU/mL [facility] LABORATORY Comment: Reference Interval (mcIU/mL): Females: ??First Trimester: 0.23-3.88 ??Second Trimester: 0.22-3.90 ??Third Trimester: 0.44-4.66 Specimen Anatomical Collection Method Collection Time Receive d Time (Source) Location / / Volume Laterality Blood 12/09/2021 6:18 AM 2 6:33 EDT AM EDT Resulting Agency Comment Spec In Lab Iker Cuevas MD CHEMISTRY ORDERABLES Performing Organization Address City/[facility]/[place] [address] Hepatic Function Panel (12/09/2021 6:18 AM EDT) P athologist Signature Total Protein 7.3 6.1 - 8.0 [facility] g/dL [facility] LABORATORY Albumin 4.2 3.2 - 5.2 [facility] RYAN g/dL [facility] LABORATORY AST 25 0 - 39 [facility] unit/L [facility] LABORATORY ALT 15 0 - 55 [facility] RYAN unit/L [facility] LABORATORY Alk Phos 75 40 - 130 [facility] R[facility] unit/L [facility] LABORATORY Total 1.1 0.2 - 1.3 [facility] Bilirubin mg/dL [facility] LABORATORY Bili, Direct 0.2 0.0 - 0.3 [facility] mg/dL [facility] LABORATORY Specimen Anatomical Collection Method Collection Time Receive d Time (Source) Location / / Volume Laterality Blood 12/09/2021 6:18 AM 6:33 EDT AM EDT Resulting Agency Comment Spec In Lab Iker Cuevas MD CHEMISTRY ORDERABLES Performing Organization Address City/State/[place] [address] (ABNORMAL) BMP w/fasting Glucose (12/09/2021 6:18 AM EDT) athologist Signature Glucose 235 (H) 65 - 99 [facility] Fasting mg/dL [facility] Comment: ?Fasting* Glucose Interpretive C [...] of Diabetes Mellitus, Position Statement from the [employer]. ??Diabete s Care, Volume 33, [...] [facility] [place]/ZIP Code Phon e Number [address] Magnesium (12/09/2021 6:18 AM EDT) P athologist Signature Magnesium 0.81 0.69 - 1.07 [facility] mmol/L [facility] Specimen Anatomical Collection Method Collection Time Receive d Time (Source) Location / / Volume Laterality Blood 12/09/2021 6:18 AM 2 6:33 EDT AM EDT Resulting Agency Comment Spec In Lab Iker Cuevas MD CHEMISTRY ORDERABLES Performing Organization Address City/[facility]/ZIP Code Phon e Number [address] (ABNORMAL) Troponin (12/09/2021 6:18 AM EDT) P athologist Signature Troponin-T 1.13 (H) 0.00 - BARBARA DAVIS 0.00 ng/mL [facility] Comment: The 99th percentile for [...] additional sample may be indicated. Reference: Third Stella Definition of Myocardial Infarction. Journal of the [place] [employer] 2012;60:1581-98 Specimen Anatomical Collection Method Collection Time Receive d Time (Source) Location / / Volume Laterality Blood 12/09/2021 6:18 AM 6:33 EDT AM EDT Resulting Agency Comment Spec In Lab Iker Cuevas MD CHEMISTRY ORDERABLES Performing Organization Address City/State/ZIP Code [place] [address] XR Chest One View [...] have questions please contact the health healthcare educator that requested your imaging first. ? Narrative [...] have questions please contact the health healthcare educator that requested your imaging first. Amber Sanches MD IMG DX ORDERABLES (ABNORMAL) BLOOD GAS 2 ARTERIAL (12/09/2021 5:14 AM EDT) Analysis Performed At Patho logist Time Signature pH Art 7.43 7.35 - [facility] 7.45 [facility] pCO2 Art 36 35 - 45 [facility] mmHg [facility] pO2 Art 67 (L) 85 - 104 [facility] LABORATORY HCO3 Art 23.4 20.0 - [facility] 26.0 [facility] mmol/[facility] LABORATORY BE Art -0.9 -3.0 - 3.0 [facility] mmol/L [facility] Hgb Blood Gas 13.2 (L) 13.7 - [facility] 16.5 g/dL [facility] O2HB Art 91.3 (L) 94.0 - [facility] 97.0 % [facility] COHB Art 0.4 % [place] [...] mmol/L [facility] LABORATORY Gluc Whole Bld 223 (H) 65 - 199 mg/dL [facility] LABORAT[facility] Comment: Diabetes: >=200 mg/dL plus symp toms. Lactate WB 2.7 (H) 0.5 - 2.2 mmol/L [facility] LABORATORY FIO2 Art 35 % [facility] Flow Art 8.0 LPM [facility] PF Ratio Art 191 [facility] LABORATORY Specimen Anatomical Collection Method Collection Time Receive d Time (Source) Location / / Volume Laterality Blood 12/09/2021 5:14 AM 2 5:14 EDT AM EDT Iker Cuevas MD CHEMISTRY ORDERABLES Performing Organization Address City/[facility] [place] [address] POCT Glucose (12/09/2021 4:46 AM EDT) P athologist Signature POC Glucose 198 65 - 199 [facility] mg/dL [facility] [...] [facility]/[place] [address] (ABNORMAL) POCT Glucose (12/09/2021 3:01 AM EDT) P athologist Signature POC Glucose 225 (H) 65 - 199 [facility] mg/dL [facility] [...] City/State/[place] [address] (ABNORMAL) POCT Glucose (12/08/2021 10:55 PM EDT) athologist Signature POC Glucose 327 (H) 65 - 199 [facility] mg/dL [facility] [...] [facility]/[place] [address] Heparin (unfractionated) Level (12/08/2021 [...] City/State/[place] [address] (ABNORMAL) Troponin (12/08/2021 10:03 PM EDT) athologist Signature Troponin-T 0.92 (H) 0.00 - BARBAR[place] DAVIS 0.00 ng/mL [facility] Comment: The 99th percentile for [...] additional sample may be indicated. Reference: Third Stella Definition of Myocardial Infarction. Journal of the [place] College [employer]iology 2012;60:1581-98 Specimen Anatomical Collection Method Collection Time Receive d Time (Source) Location / / Volume Laterality Blood 12/08/2021 10:03 12/08/2021 PM EDT 10:31 PM EDT Resulting Agency Comment Spec In Lab Iker Cuevas MD CHEMISTRY ORDERABLES Performing Organization Address City/State/ZIP Code Phon e Number [facility] [place] [address] (ABNORMAL) POCT Glucose (12/08/2021 [...] [facility]/ZIP Code Phon e Number [address] (ABNORMAL) POCT Glucose (12/08/2021 7:06 PM EDT) athologist Signature POC Glucose 442 (H) 65 - 199 [facility] mg/dL [facility] [...] [facility]/[place] [address] Magnesium (12/08/2021 6:02 PM EDT) athologist Signature Magnesium 0.86 0.69 - 1.07 [facility] mmol/L [facility] Specimen Anatomical Collection Method Collection Time Receive d Time (Source) Location / / Volume Laterality Blood 12/08/2021 6:02 PM 2 6:36 EDT PM EDT Resulting Agency Comment Spec In Lab Iker Cuevas MD CHEMISTRY ORDERABLES Performing Organization Address City/[facility]/[place] [address] (ABNORMAL) Basic Metabolic Panel (non-fasting) (12/08/2021 6:02 PM EDT) athologist Signature Glucose Lvl 392 (H) 65 - 199 [facility] mg/dL [facility] [...] Organization Address City/State/ZIP [place] [address] (ABNORMAL) Differential, Automated (12/08/2021 6:02 PM EDT) [facility] gist Method Time Signature Neutrophils % 89.5 % [facility] LABORATORY Neutr Abs (ANC) 13.97 (H) 1.70 - [facility] 6.10 [facility] x10(3)/[facility] L LABORATORY Lymphocytes % 3.7 % [facility] LABORATORY Lymphocytes Abs 0.6 (L) 0.9 - 3.2 [facility] x10(3)/[facility] LABORATORY Monocytes % 6.1 % [facility] LABORATORY Monocyte Abs 1.0 (H) 0.3 - 0.9 [facility] x10(3)/[facility] LABORATORY Eosinophils % 0.0 % [facility] LABORATORY Eosinophils Abs 0.0 0.0 - 0.4 [facility] x10(3)/[facility] LABORATORY Basophils % 0.2 % [facility] LABORATORY Basophils Abs 0.0 0.0 - 0.1 [facility] x10(3)/[facility] LABORATORY Immature Gran % 0.50 % [...] Gran Abs 0.08 (H) 0.00 - 0.04 x10(3)/[facility] LABORATORY Specimen Anatomical Collection Method Collection Time Receive d Time (Source) Location / / Volume Laterality Blood 12/08/2021 6:02 PM 6:36 EDT PM EDT Resulting Agency Comment Spec In Lab Morgan BROWN HEMATOLOGY ORDERABLES Performing Organization Address City/State/ZIP [place] [address] (ABNORMAL) Hemogram (12/08/2021 6:02 PM EDT) Analysis Performed At Patho logist Time Signature WBC 15.6 (H) 4.0 - 9.5 [facility] x10(3)/[facility] LABORATORY RBC 4.05 (L) 4.58 - [facility] 5.54 [facility] x10(6)/[facility] LABORATORY Hemoglobin 11.8 (L) 13.7 - BARBARA ZHAORYAN 16.5 g/dL [facility] LAB[facility] Hematocrit 35.8 (L) 40.5 - BARBARA VILLAREALCOCK 48.5 % [facility] LAB[facility]AT[facility] MCV 88.4 82.9 - [place]BARA VILLAREALCOCK 93.1 [facility] LABORATORY MCH 29.1 27.5 - BARBARA ZHAORYAN 32.1 pg [facility] LAB[facility] MCHC 33.0 32.0 - BARBARA ZHAORYAN 35.7 g/dL [facility] LAB[facility] Platelets 178 145 - 357 [facility] x10(3)/[facility] LABORATORY RDWSD 49.3 (H) 36.0 - BARBARA ZHAORYAN 45.0 [facility] LABORATORY RDWCV 15.1 (H) 11.4 - BARBARA RYAN 13.8 % [facility] LABORATORY MPV 10.4 7.6 - 12.9 [facility] fL [facility] LAB[facility]AT[facility] nRBC % Auto 0.0 % [facility] LABORATORY nRBC Abs Auto 0.000 0.000 - BARBARA ZHAORYAN 0.000 [facility] x10(3)/[facility] LABORATORY Specimen Anatomical Collection Method Collection Time Receive d Time (Source) Location / / Volume Laterality Blood 12/08/2021 6:02 PM 6:36 EDT PM EDT Resulting Agency Comment Spec In Lab Morgan BROWN HEMATOLOGY ORDERABLES Performing Organization Address City/State/ZIP [place] [address] (ABNORMAL) Troponin (12/08/2021 6:02 PM EDT) P athologist Signature Troponin-T 0.89 (H) 0.00 - BARBARA VILLAREALCOCK 0.00 ng/mL [facility] Comment: The 99th percentile for [...] additional sample may be indicated. Reference: Third Stella Definition of Myocardial Infarction. Journal of the [place] [employer]iology 2012;60:1581-98 Specimen Anatomical Collection Method Collection Time Receive d Time (Source) Location / / Volume Laterality Blood 12/08/2021 6:02 PM 6:36 EDT PM EDT Resulting Agency Comment Spec In Lab Iker Cuevas MD CHEMISTRY ORDERABLES Performing Organization Address City/State/ZIP Code Phon e Number [place] [phone] COVID-19 PCR (12/08/2021 5:00 PM EDT) [facility] Method Time Signature SARS-CoV-2 Not Detected [...] using the Simplexa COVID-19 Direct Assay by [employer] as authorized by the FDA issued Emergency [...] Department of Pathology and Laboratory Medicine at [facility], certified under the Clinical Laboratory [...] fact sheets at the following FDA website: https://www.fda.gov/medical-devices/tvrzfvatlhg-weoihqx-4129-agbxm-20-zrsluyivm- zxl-roofqpgcishrhx-rkrvycc-devices/vdepp-tibrmdrndip-ovne SARS-CoV-2 Source BAND SPLITTER Swab [facility] LABORATORY Specimen (Source) Anatomical Collection Method Collection Time Re ceived Time Location / / Volume Laterality Nasopharyngeal Swab 12/08/2021 5:00 12/08 PM EDT 6:03 PM EDT Comment: Symptoms->Surveillance Resulting Agency Comment Spec In Lab Iker Cuevas MD MICROBIOLOGY - GENERAL ORDER [place] Performing Organization Address City/State/ZIP [place] [address] EKG 12 Lead (12/08/2021 4:40 PM EDT) Component Value Ref Range Test Analysis Performed Pathologis t Method Time At Signature Ventricular rate 78 BPM MUSE SYSTEM Atrial Rate 78 BPM MUSE SYSTEM P-R Interval 152 ms MUSE SYSTEM QRS Duration 96 ms MUSE SYSTEM Q-T Interval 396 ms MUSE SYSTEM QTC Calculated 451 ms MUSE SYSTEM (Bezet) Calculated P Holton 44 degrees MUSE SYSTEM Calculated R Holton -31 degrees MUSE SYSTEM Calculated T Holton 124 degrees MUSE SYSTEM INTERPRETATION Normal sinus [...] POC Glucose 400 (H) 65 - 199 [facility] mg/dL [facility] [...] Organization Address City/State/ZIP [place] [address] documented in this encounter [...] Given 11/23 10:30 AM EDT 300 mcg (CRO) ONCE PRN, Starting on Wed12/10/21 at 1030, [...] Admin Adt) 0844 (Given - Provider: Emma Gacria RN) 0900 (Hold - Provider: Lilliana Esteban [...] - Reason: Transfer to a Procedural area)1230 ([facility] Unhold - Provider: Admin Adt) 650 [...] - Reason: Transfer to a Procedural area)1230 ([facility] Unhold - Provider: Admin Adt) 10 [...] (Intra-Procedure), Routine niCARdipine (Cardene) (100 mcg/mL) dilution (CRO) (CANCELED) 1030 (Given - Provider: Vitaliy Nolbes MD) ONCE PRN, Starting on Wed12/10/21 at [...] & nbsp; For persistent hypoglycemia, con data integrity consultant longer-acting treatment for the duration of the [...]
Routine documented in this encounter Care Teams Regulatory Submissions Specialist Relationship Specialty Start Date End Date Lovely Vicente MD PCP - General 04/16/[address] [place] [address] documented as of this encounter
--- OUTSIDE RECORDS SUMMARY | 2022-04-22 08:17 | XMS_ITS | Encounter Summary ---
:1945 Author Organization [facility] [place] [address] Care Team Providers Name Role Phone Lovely Vicente MD Primary Care Provider Encounter Details Date Type Department Care Team Description 02/19/2020 Telephone Dermatology at [facility] Ariana Wilder LPN [address] [place] [address] Social History Tobacco Use Types Packs/Day [...] Zulma Dolan MD [facility] [place], [place] 0[address] (Wo rk) 05/28/2022 Laboratory Appointment Lab 05/28/2022 Office Visit Cardiology Zulma Dolan MD [facility] [place] [address] Liz Poole PA [facility] [place] [address] 06/10/2022 Office Visit Dermatology Laura Scherer MD [facility] [address] [place], [place] 0[address] (Wo rk) documented as of this encounter Visit Diagnoses Not on filedocumented in this encounter Care Teams Cotton Presser Relationship Specialty Start Date End Date Lovely Vicente MD PCP - General 04/16/[address] [place] [address] documented as of this encounter
--- OUTSIDE RECORDS SUMMARY | 2022-04-22 08:17 | XMS_ITS | Encounter Summary ---
:1945 Author Organization [facility] [place] [address] Care Team Providers Name Role Phone Lovely Vicente MD Primary Care Provider Encounter Details Date Type Department Care Team Description 08/26/2018 Transcribe Orders Laboratory Lovely Vicente, Deferred diagnosis [facility] on axis I [address] [address] [place], [place] [phone] Social History Tobacco Use Types Packs/Day Years [...] Dolan MD [facility] [address] [place], [place] [address] (Wo rk) 05/28/2022 Laboratory Appointment Lab 05/28/2022 Office Visit Cardiology Zulma Dolan MD [facility] [place] [address] Liz Poole PA [facility] [place] [address] 06/10/2022 Office Visit Dermatology Laura Scherer MD [facility] [address] [place], [place] [address] (Wo rk) documented as of this encounter Visit Diagnoses Diagnosis Deferred diagnosis on axis I Other unknown and unspecified cause of m orbidity or mortality documented in this encounter Care Teams Hatchery Attendant Relationship Specialty Start Date End Date Lovely Vicente MD PCP - General 04/16/15 [facility] [address] [place] [address] documented as of this encounter
--- OUTSIDE RECORDS SUMMARY | 2022-04-22 08:17 | XMS_ITS | Encounter Summary ---
:1945 Author Organization [facility] [place] [place] [address] Care Team Providers Name Role Phone Lovely Vicente MD Primary Care Provider Encounter Details Date Type Department Care Team Description 12/07/2021 Telephone Cardiology Eddi Briceño Jr., [facility] [place] [address] [facility] [phone] CARDIOLOGY DEPT [place], [place] [address] (Wo rk) Social History [...] the OSH ED provider/staff member. Referring Location: [facility] Referring Provider: Marisela Dean, LEGAL ASSISTANT [address] [place] [address] Don Veda Kushal 76 y.o. w / [...] bpm, LAFB, poor R wave progression, septal SC, and lateral STD, overall no significantchange from [...] [facility] [place] [address] [facility] [place] [address] 06/10/2022 Office Visit Dermatology Laura Scherer MD [facility] [address] [place], [place] [address] (Wo rk) documented as of this encounter Visit Diagnoses Not on filedocumented in this encounter Care Teams Mill Stenciler Relationship Specialty Start Date End Date Lovely Vicente MD PCP - General 04/16/15 [facility] [address] [place] [address] documented as of this encounter
--- OUTSIDE RECORDS SUMMARY | 2022-04-22 08:17 | XMS_ITS | Encounter Summary ---
:1945 Author Organization [facility] [place] [address] Care Team Providers Name Role Phone Lovely Vicente MD Primary Care Provider Reason for Visit Reason Onset Date Comments Other 03/24/2019 cardiac clearance ne eded Encounter Details Date Type Department Care Team Description 03/24/2019 Telephone Cardiology at [facility] Danette Maxwell, Other (cardiac [facility] SPECIAL EFFECTS DESIGNER clearance needed) [place] [phone] CARDIOLOGY [place], [place] [address] (Wo rk) Social History Tobacco [...] AM EDT Leonela from [facility] [place] called requesting cardiac clearance for this patient who is to have a colonoscopy on 04/04/19. He is on anticoagulation and they will need to bridge him. Their phone # [phone], fax# [phone]. Thank you. documented in this encounter Plan of Treatment Upcoming Encounters Date Type Specialty Care Team Description 05/28/2022 Appointment Cardiology Zulma Dolan MD [facility] [place], [place] [address] (Wo rk) 05/28/2022 Laboratory Appointment Lab 05/28/2022 Office Visit Cardiology Zulma Dolan MD [facility] [place] [address] Liz Poole PA [facility] [place] [address] 06/10/2022 Office Visit Dermatology Laura Scherer MD [facility] [address] [place], [place] [address] (Wo rk) documented as of this encounter Visit Diagnoses Not on filedocumented in this encounter Care Teams Stain Wiper Relationship Specialty Start Date End Date Lovely Vicente MD PCP - General 04/16/[address] [place] [address] documented as of this encounter
--- OUTSIDE RECORDS SUMMARY | 2022-04-22 08:17 | XMS_ITS | Encounter Summary ---
:1945 Author Organization [facility] [place] [address] Care Team Providers Name Role Phone Lovely Vicente MD Primary Care Provider Encounter Details Date Type Department Care Team Description 11/07/2019 TH Visit Cardiology at [facility] Danette Maxwell (arteriosclerotic heart disease); (TeleHealth) [facility] STACIE Gomes Cardiomyopathy, ischemic; Drive [facility] S/P CABG x 3; [place], [place] MARIA VICTORIA (obstructive sleep apnea) on CPAP [phone] CARDIOLOGY [phone] [place], [place] [address] Social History Tobacco Use Types [...] regurgitation present. 07/07/2019 - 07/21/2019 [employer] Firer The patient had a minimum heart rate [...] at last check 6. Post-op atrial fibrillation [id number] (CHF, HTN, DM, vascular disease, thromboembolism) Amiodarone discontinued Continue coumadin INR managed by PCP 7. PAD 08/06/2017: Right 1st, 2nd, 3rd toe amputation 08/11/2017: Left??femoral arterial access, RLE??angiogram, Balloon angioplasty of R PT with Eleazar 2.5 x 80 10/25/2017: right popliteal-pedal bypass at [facility] Continue Coumadin 8. Hypothyrodism S/p thyroidectomy for [...] Cardiology Zulma Dolan MD [facility] [place], [place] [address] (Wo rk) 05/28/2022 Laboratory Appointment Lab 05/28/2022 Office Visit Cardiology Zulma Dolan MD [facility] [place] [address] Liz Poole PA [facility] [place] [address] 06/10/2022 Office Visit Dermatology Laura Scherer MD [facility] [address] [place], [place] [address] (Wo rk) documented as of this encounter Visit Diagnoses Diagnosis ASHD (arteriosclerotic heart disease) Coronary atherosclerosis of unspecified type of vessel, [place] or graft Cardiomyopathy, ischemic Other specified forms of chronic ischemi c heart disease S/P CABG x 3 Postsurgical aortocoronary bypass status MARIA VICTORIA (obstructive sleep apnea) on CPAP Obstructive sleep apnea (adult) (pediatr ic) documented in this encounter Care Teams [employer] Relationship Specialty Start Date End Date Lovely Vicente MD PCP - General 04/16/[address] [place], [place] [address] documented as of this encounter
--- OUTSIDE RECORDS SUMMARY | 2022-04-22 08:17 | XMS_ITS | Encounter Summary ---
:1945 [place] [address] Care Team Providers Name Role Phone Lovely Vicente MD Primary Care Provider Encounter Details Date Type Department Care Team Description 12/07/2021 Ancillary Procedure [facility] Lovely murillo MD [facility] [address] [address] [place], [place] [phone] (Wo lissa) [address] [phone] Social History Tobacco Use Types Packs/Day Years [...] MD [facility] [address] [place] [address] (Wo rk) 05/28/2022 Laboratory Appointment Lab 05/28/2022 Office Visit Cardiology Zulma Dolan MD [facility] [place] [address] Liz Poole PA [facility] [place] [address] 06/10/2022 Office Visit Dermatology Laura Scherer MD [facility] [address] [place], [place] [address] (Wo rk) documented as of [...] Organization Address City/State/ZIP Code Phon e Number [place], [place] documented in this encounter Visit Diagnoses Not on filedocumented in this encounter Care Teams Hazmat Cdl Driver Relationship Specialty Start Date End Date Lovley Vicente MD PCP - General 04/16/[address] [place] [address] documented as of this encounter
--- OUTSIDE RECORDS SUMMARY | 2022-04-22 08:17 | XMS_ITS | Encounter Summary ---
:1945 Author Organization [facility] [address] Care Team Providers Name Role Phone Lovely Vicente MD Primary Care Provider Encounter Details Date Type Department Care Team Description 04/16/2021 Laboratory Appointment Lab 3L [facility] [place] [id number] Social History Tobacco Use Types Packs/Day Years [...] MD [facility] [place], [place] [address] (Wo rk) 05/28/2022 Laboratory Appointment Lab 05/28/2022 Office Visit Cardiology Zulma Dolan MD [facility] [place] [address] Liz Poole PA [facility] [place] [address] 06/10/2022 Office Visit Dermatology Laura Scherer MD [facility] ER DR TEJA GR[address]DERMAT [place], [place] [address] (Wo rk) documented as of this encounter [...] athologist Signature ProBNP 523 (H) <=124 pg/mL [facility] Specimen Anatomical Collection Method Collection Time Receive d Time (Source) Location / / Volume Laterality Blood 04/16/2021 9:58 AM EDT 10:02 AM EDT Resulting Agency Comment Spec In Lab Zulma Plunkett MD CHEMISTRY ORDERABLES Performing Organization Address City/State/[place] [address] (ABNORMAL) Basic Metabolic Panel (non-fasting) (04/16/2021 9:58 AM EDT) athologist Signature Glucose Lvl 77 65 - 199 [facility] mg/dL [facility] Comment: Diabetes: [...] estions. Chloride 103 98 - 107 mmol/L [facility] CO2 28 22 - 31 mmol/L [facility] Anion Gap 9 5 - 15 mmol/L [facility] Calcium 9.3 8.5 - 10.5 mg/dL [facility] Estimated GFR 55 (L) >=60 mL/min/1.73 m?? [facility] [...] Organization Address City/State/[place] [address] documented in this encounter Visit Diagnoses Diagnosis Chronic systolic heart failure documented in this encounter Care Teams Precinct Police Captain Relationship Specialty Start Date End Date Lovely Vicente MD PCP - General 04/16/[address] [place] [address] documented as of this encounter
--- OUTSIDE RECORDS SUMMARY | 2022-04-22 08:17 | XMS_ITS | Encounter Summary ---
:1945 Author Organization [facility] Address [facility] [place] [address] Care Team Providers Name Role Phone Lovely Vicente MD Primary Care Provider Reason for Referral Diagnostic Test (Routine) - Closed Specialty Diagnoses / Procedures Referred By Contact Refer red To Contact Cardiology Diagnoses Chronic systolic heart failure Danette Maxwell APRN [facility] Non-Inv Card Lab Procedures Echocardiogram Transthoracic(Leb) [facility] [place] [address] [place] [address] Referral ID Status Reason Start Date Expiration Date Visits V isits Requested Authorized [id number] Closed Specialty 07/17/2019 09/14/2019 1 1 Service Requested Encounter Details Date Type Department Care Team Description 01/16/2019 Office Visit Cardiology at [facility] Danette Maxwell, Chronic systolic heart failu re; [facility] STACIE Cardiomyopathy, ischemic; Drive [facility] Hx of thyroid cancer; [place], [place] DR [place] (arteriosclerotic heart disease); [phone] CARDIOLOGY MARIA VICTORIA (obstructive sleep apnea) on CPAP [phone] [place], [place] [address] (Wo rk) Social History Tobacco Use Types [...] K+ 4.6 today 6. Post-op atrial fibrillation [id number] 7 (CHF, HTN, DM, vascular disease, thromboembolism) [...] Cardiology Zulma Dolan MD [facility] [place], [place] [address] (Wo rk) 05/28/2022 Laboratory Appointment Lab 05/28/2022 Office Visit Cardiology Zulma Dolan MD [facility] [place] [address] Liz Poole PA [facility] [place] [address] 06/10/2022 Office Visit Dermatology Laura Scherer MD [facility] [address]DERMAT OLOGY [place], [place] [address] (Wo rk) documented as of this encounter Results ECHOCARDIOGRAM COMPLETE W CONTRAST (07/28/2019 8:19 AM EST) athologist Signature EF 40 [facility] Anatomical Region Laterality Modality Other Specimen (Source) Anatomical Location Collection Method / Collectio n Time Received Time / Laterality Volume 07/28/2019 Narrative 07/28/2019 8:38 AM EST Procedure: ?Transthoracic Echocardiogram Patient: ?NATALYA Mccollum ? (Age): 1945(74y) Med Rec#: ? [id number] ?Sex: ?M ? Site Loc: ? [facility] ?Ht / Wt: ??172(cm)/81(kg) Pt. Loc: ?Echo Lab ?BSA: ?1.94 Study Date: ?? 07/28/2019 ?Pt. Type: Outpatient Tape: ? Referring: MARY ELLEN Reading: Ifeanyi Truong ([id number]) First Front Ventilator: Fadumo Flanagan RDCS, REGINA Diagnosis: *Chronic systolic [...] E-wave Vmax ?1 ?m/sec ? MV deceleration kndr101.5 ? msec ? MV A-wave Vmax ?1 [...] ? Pulmonic Valve/Qp:Qs ?Value ?Units (Range) ? CT end-diastolic Vma1.1 ?m/sec ? Wall Motion: Segment Name ?Rest ? Base-Anteroseptal ?? Normal ? Base-Anterior ? Normal ? Base-Anterolateral ??Normal ? Base-Posterolateral Normal ? Base-Inferior ? Akinetic ? Base-Inferoseptal ?? Normal ? Mid-Anteroseptal ?Normal ? Mid-Anterior ?Hypokinetic ? Mid-Anterolateral ?? Normal ? Mid-Posterolateral ??Normal ? Mid-Inferior ?Hypokinetic ? Mid-Inferoseptal ?Normal ? [place]-Septal ? Normal ? [place]-Anterior ? Hypokinetic ? [place]-Lateral ?Normal ? [place]-Inferior ? Akinetic ? [place]-Tip ?Hypokinetic ? This report has been electronically sign ed by: _ Ifeanyi Truong M.D. ? 07/28/2019 0 8:38:01 Images reviewed and interpretation [facility] Procedure Note Ifeanyi Truong MD - 07/28/2019Formatt ing of this note might be different from the original. Procedure: Transthoracic Echocardiogram Patient: NATALYA MCBRIDE(Age): [birth year]74y) Med Rec#: [id number] Sex: M Site Loc: [facility] Ht / Wt: 172(cm)/81(kg) Pt. Loc: Echo Lab BSA: 1.94 Study Date: 07/28/2019 Pt. Type: Outpati ent Tape: Referring: MARY ELLEN Reading: Ifeanyi Truong ([id number]) First Front Ventilator: Fadumo Flanagan [facility], REGINA Diagnosis: [...] MV E-wave Vmax 1 m/sec MV deceleration yffa928.5 msec MV A-wave Vmax 1 m/sec MV [...] 0.7 ratio Pulmonic Valve/Qp:Qs Value Units (Range) CT end-diastolic Vma1.1 m/sec Wall Motion: Segment Name Rest Base-Anteroseptal Normal Base-Anterior Normal Base-Anterolateral Normal Base-Posterolateral Normal Base-Inferior Akinetic Base-Inferoseptal Normal Mid-Anteroseptal Normal Mid-Anterior Hypokinetic Mid-Anterolateral Normal Mid-Posterolateral Normal Mid-Inferior Hypokinetic Mid-Inferoseptal Normal [place]-Septal Normal [place]-Anterior Hypokinetic [place]-Lateral Normal [place]-Inferior Akinetic [place]-Tip Hypokinetic This report has been electronically sign ed by: _ Ifeanyi Truong M.D. 07/28/2019 08:38:0 1 Images reviewed and interpretation verif ied [facility] Cardiac Ultrasound Laboratory Danette Maxwell APRN ECHO ORDERABLES (ABNORMAL) Basic Metabolic Panel (non-fasting) (01/16/2019 7:49 AM EDT) P athologist Signature Glucose Lvl 105 65 - 199 [facility] mg/dL [facility] Comment: [...] of body mass or the acutely ill. http://[email or web address]/Armor5nkf eGFR 79 >=60 mL/min/1.73 m?? [facility] Comment: The eGFR was calculated using the CKD-EP I equation. As with all creatinine based estimates of kidney function, eGFR values calculated with the CKD-EPI equation are not accurate in patients wi th acute kidney failure, extremes of body mass or the acutely ill. http://CloudFlare/[facility] Specimen Anatomical Collection Method Collection Time Receive d Time (Source) Location / / Volume Laterality Blood specimen 01/16/2019 7:49 AM 019 7:55 (specimen) EDT AM EDT Resulting Agency Comment Spec In Lab Danette Maxwell APRN CHEMISTRY ORDERABLES Performing Organization Address City/State/[place] [address] (ABNORMAL) pro-Brain Natriuretic Peptide (01/16/2019 7:49 AM EDT) P athologist Signature ProBNP 780 (H) <=125 pg/mL [facility] Specimen Anatomical Collection Method Collection Time Receive d Time (Source) Location / / Volume Laterality Blood specimen 01/16/2019 7:49 AM 019 7:55 (specimen) EDT AM EDT Resulting Agency Comment Spec In Lab Danette Maxwell LAND LEASING EXAMINER CHEMISTRY ORDERABLES Performing Organization Address City/State/[place] [address] documented in this encounter Visit Diagnoses Diagnosis Chronic systolic heart failure Cardiomyopathy, ischemic Other specified forms of chronic ischemi c heart disease Hx of thyroid cancer Personal history of malignant neoplasm o f thyroid ASHD (arteriosclerotic heart disease) Coronary atherosclerosis of unspecified type of vessel, tonto apache or graft MARIA VICTORIA (obstructive sleep apnea) on CPAP Obstructive sleep apnea (adult) (pediatr ic) Chronic systolic heart failure documented in this encounter Care Teams Traffic Routing Engineer Relationship Specialty Start Date End Date Lovely Vicente MD PCP - General 04/16/[address] [place] [address] documented as of this encounter
--- OUTSIDE RECORDS SUMMARY | 2022-04-22 08:17 | XMS_ITS | Encounter Summary ---
:1945 Author Organization [facility] [place] [address] Care Team Providers Name Role Phone Lovely Vicente MD Primary Care Provider Encounter Details Date Type Department Care Team Description 01/16/2019 Laboratory Appointment Lab 3L [facility] [place] [phone] Social History Tobacco Use Types Packs/Day Years [...] [facility] er [place], [place] [address] (Wo rk) 05/28/2022 Laboratory Appointment Lab 05/28/2022 Office Visit Cardiology Zulma Dolan MD [facility] [place] [address] Liz Poole PA [facility] [place] [address] 06/10/2022 Office Visit Dermatology Laura Scherer MD [facility] ER DR [address]JA [address] [place], [place] [address] (Wo [...] Organization Address City/State/[place] [address] (ABNORMAL) Basic Metabolic Panel (non-fasting) (01/16/2019 7:49 AM EDT) athologist Signature Glucose Lvl 105 65 - 199 [facility] mg/dL [facility] Comment: Diabetes: >=200 [...] of body mass or the acutely ill. http://Content Syndicate: Words on Demand/Tenon Medicalnkf eGFR 79 >=60 mL/min/1.73 m?? [facility] Comment: The eGFR was calculated using the CKD-EP I equation. As with all creatinine based estimates of kidney function, eGFR values calculated with the CKD-EPI equation are not accurate in patients wi th acute kidney failure, extremes of body mass or the acutely ill. http://Content Syndicate: Words [employer] Dem[employer]/Tenon Medicalnkf Specimen Anatomical Collection Method Collection Time Receive d Time (Source) Location / / Volume Laterality Blood specimen 01/16/2019 7:49 AM 019 7:55 (specimen) EDT AM EDT Resulting Agency Comment Spec In Lab Danette Maxwell APRN CHEMISTRY ORDERABLES Performing Organization Address City/State/[place] [address] documented in this encounter Visit Diagnoses Diagnosis Chronic systolic heart failure documented in this encounter Care Teams Rim Buster Relationship Specialty Start Date End Date Lovely Vicente MD PCP - General 04/16/[address] [place] [address] documented as of this encounter
--- OUTSIDE RECORDS SUMMARY | 2022-04-22 08:17 | XMS_ITS | Encounter Summary ---
:1945 Author Organization [place] [address] Care Team Providers Name Role Phone Lovely Vicente MD Primary Care Provider Encounter Details Date Type Department Care Team Description 08/15/2018 Office Visit Cardiology at [facility] Danette Maxwell Chronic systolic heart failu re; [facility] A, DOCUMENT ADVISOR Cardiomyopathy, ischemic; [facility] ASCVD (arteriosclerotic card iovascular disease); [place], [place] Essential hypertension; [address] CARDIOLOGY MARIA VICTORIA on CPAP [phone] [place], [place] [address] Social History Tobacco Use Types [...] in this encounter Progress Notes Danette Maxwell, DOCUMENT ADVISOR - 08/15/2018 9:00 AM EST Images from [...] is always better at therapy Call to [facility] PT Denies lightheadedness or dizziness Denies [...] K+ 4.6 today 6. Post-op atrial fibrillation [id number] 7 (CHF, HTN, DM, vascular disease, thromboembolism) Amiodarone discontinued Continue coumadin INR managed by PCP. 2.1 today 7. PAD 08/06/2017: Right 1st, 2nd, 3rd toe amputation 08/11/2017: Left??femoral arterial access, RLE??angiogram, Balloon angioplasty of R PT with Eleazar 2.5 x 80 10/25/2017: right [facility]al[facility]ped[facility] bypass at [facility] [...] Dolan MD [facility] [address] [place] [place] [address] (Wo rk) 05/28/2022 Laboratory Appointment Lab 05/28/2022 Office Visit Cardiology Zulma Dolan MD [facility] [place] [address] Liz Poole PA [facility] [place] [address] 06/10/2022 Office Visit Dermatology Laura Scherer MD [facility] ER DR [address]-DERMAT OLOGY [place], [place] [address] (Wo rk) documented as of this encounter Results Lipid Panel (08/15/2018 8:04 AM EST) athologist Signature Chol, Total 75 mg/dL [facility] Comment: Lower Risk: <200 mg/dL Average Risk: 200-239 mg/dL Higher Risk: >sw=975 mg/dL Triglycerides 185 mg/dL [facility] Comment: Average Risk/Lower Risk: <150 mg/dL Borderline High Risk: 150-199 mg/dL High Risk: 200-499 mg/dL Very High Risk: >sq=887 mg/dL HDL 32 mg/dL [facility] Comment: Males: ?? Higher Risk: <40 mg/dL Females: ?? HIgher Risk: <50 mg/dL LDL Cholesterol 6 mg/dL [facility] Comment: Lowest Risk: <100 mg/dL Lower Risk: 100-129 mg/dL Borderline High Risk: 130-159 mg/dL High Risk: 160-189 mg/dL Very High Risk: >us=568 mg/dL Chol/HDL Ratio 2.3 ratio [facility] Lipid Interpretation See Note [facility] Comment: Lipid management should be guided by a p atient? s ASCVD risk, goals and preferences. ACC/AHA Guidelines recommend high intens ity statin if clinical ASCVD or LDL greater than or equal to 190 mg/dL. http://Caring in Placeurl.com/DUH-SPW-Yxjxvjkrz Adults aged 40-75 with LDL 70-189 mg/dL should have their 10 year ASCVD risk estimated with the ACC/AHA ASCVD risk es timator http://tools.acc.org/YTYTK-Imgu-Hchhonek r/ Statin should be discussed if risk [...] [place] [address] (ABNORMAL) Basic Metabolic Panel (non-fasting) (08/15/2018 8:04 AM EST) P athologist Signature Glucose Lvl 116 65 - 199 [facility] mg/dL [facility] [...] of body mass or the acutely ill. http://Q Chip/[facility] CITYnk[facility] eGFR 79 >=60 mL/min/1.73 m?? [facility] Comment: The eGFR was calculated using the CKD-EP I equation. As with all creatinine based estimates of kidney function, eGFR values calculated with the CKD-EPI equation are not accurate in patients wi th acute kidney failure, extremes of body mass or the acutely ill. http://Q Chip/[facility] CITY[facility] Specimen Anatomical Collection Method Collection Time Receive d Time (Source) Location / / Volume Laterality Blood specimen 08/15/2018 8:04 AM 019 8:20 (specimen) EST AM EST Resulting Agency Comment Spec In Lab Danette Maxwell APRN CHEMISTRY ORDERABLES Performing Organization Address City/State/ZIP Code Phon e Number [address] (ABNORMAL) pro-Brain Natriuretic Peptide (08/15/2018 8:04 AM EST) P athologist Signature ProBNP 1,797 (H) <=125 [facility] Specimen Anatomical Collection Method Collection Time Receive d Time (Source) Location / / Volume Laterality Blood specimen 08/15/2018 8:04 AM 019 8:20 (specimen) EST AM EST Resulting Agency Comment Spec In Lab Danette Maxwell APRN CHEMISTRY ORDERABLES Performing Organization Address City/State/ZIP [place] [address] documented in this encounter Visit Diagnoses Diagnosis Chronic systolic heart failure Cardiomyopathy, ischemic Other specified forms of chronic ischemi c heart disease ASCVD (arteriosclerotic cardiovascular d isease) Unspecified cardiovascular disease Essential hypertension Unspecified essential hypertension MARIA VICTORIA on CPAP Obstructive sleep apnea (adult) (pediatr ic) documented in this encounter Care Teams Cisco Certified Internetwork Expert Relationship Specialty Start Date End Date Lovely Vicente MD PCP - General 04/16/[address] [place] [address] documented as of this encounter
--- OUTSIDE RECORDS SUMMARY | 2022-04-22 08:17 | XMS_ITS | Encounter Summary ---
:1945 [place] [address] Care Team Providers Name Role Phone Lovely Vicente MD Primary Care Provider Reason for Visit Reason Comments Skin Cancer Examination Encounter Details Date Type Department Care Team Description 03/20/2021 Office Visit Dermatology at [facility] Brennen Rene MD History of melanoma; [facility] History of dysplastic nevus; [address] Multiple benign nevi; [place] [address] [facility] [place] (seborrheic keratosis); [phone] [address]-DERMATOLOGY [place] (actinic keratosis) [place], [place] [address] Social History Tobacco Use Types [...] no SOCIAL HISTORY 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 Last visit at [facility] Derm: 01/02/2020 Medications: Reviewed in eD-H [...] and signed by: LAURA RENE MD Dermatology [facility] documented in this encounter Plan of Treatment Upcoming Encounters Date Type Specialty Care Team Description 05/28/2022 Appointment Cardiology TrudiZulma Knowles MD [facility] [place], [place] [address] (Wo rk) 05/28/2022 Laboratory Appointment Lab 05/28/2022 Office Visit Cardiology Zulma Dolan MD [facility] [place] [address] Liz Poole PA [facility] [place] [address] 06/10/2022 Office Visit Dermatology Laura Rene MD [facility] DR [address]MAT [place], [place] [address] (Wo rk) documented as [...] keratosis documented in this encounter Care Teams Dining Server Relationship Specialty Start Date End Date Lovely Vicente MD PCP - General 04/16/[address] [place] [address] documented as of this encounter
--- OUTSIDE RECORDS SUMMARY | 2022-04-22 08:17 | XMS_ITS | Encounter Summary ---
:1945 [place] [address] Care Team Providers Name Role Phone Lovely Vicente MD Primary Care Provider Encounter Details Date Type Department Care Team Description 07/12/2019 Office Visit Dermatology at [facility], Rigoberto Yarbrough (actinic keratosis); MD SHAY Quick III (seborrheic keratosis); [address] [facility] Multiple benign nevi; [place] [address] History of melanoma [phone] [facility] [place], [place] [address] Social History Tobacco Use [...] Rigoberto Garcia MD Section of Dermatology [facility] documented in this encounter Plan of Treatment Upcoming Encounters Date Type Specialty Care Team Description 05/28/2022 Appointment Cardiology Zulma Dolan MD [facility] [address] [place], [place] [address] (Wo rk) 05/28/2022 Laboratory Appointment Lab 05/28/2022 Office Visit Cardiology Zulma Dolan MD [facility] [place] [address] Liz Poole PA [facility] [place] [address] 06/10/2022 Office Visit Dermatology Laura Scherer MD [facility] DR [address]MAT [place], [place] [address] (Wo rk) documented as of this encounter Visit Diagnoses Diagnosis [place] (actinic keratosis) Actinic keratosis [place] (seborrheic keratosis) Other seborrheic keratosis Multiple benign nevi Benign neoplasm of skin, site unspecifie d History of melanoma Personal history of malignant melanoma o f skin documented in this encounter Care Teams Senior Warehouse Clerk Relationship Specialty Start Date End Date Lovely Vicente MD PCP - General 04/16/15 [facility] [address] [place] [address] documented as of this encounter
--- OUTSIDE RECORDS SUMMARY | 2022-04-22 08:17 | XMS_ITS | Encounter Summary ---
:1945 Author Organization [facility] [address] Care Team Providers Name Role Phone Lovely Vicente MD Primary Care Provider Encounter Details Date Type Department Care Team Description 08/15/2018 Laboratory Lab 3L Katalina Chronic systoli c heart failure; Appointment [facility] ASCVD (ar teriosclerotic cardiovascular disease) [place] [address] Social History Tobacco Use Types [...] Dolan MD [facility] [place], [place] [address] (Wo rk) 05/28/2022 Laboratory Appointment Lab 05/28/2022 Office Visit Cardiology Zulma Dolan MD [facility] [place] [address] Liz Poole PA [facility] [place] [address] 06/10/2022 Office Visit Dermatology Laura Scherer MD [facility] ER DR TE[address]MAT [place], [place] [address] [...] Signature Glucose Lvl 116 65 - 199 [facility] mg/dL [facility] Comment: Diabetes: [...] of body mass or the acutely ill. http://SigmaFlow/[facility] eGFR 79 >=60 mL/min/1.73 m?? [facility] Comment: The eGFR was calculated using the CKD-EP I equation. As with all creatinine based estimates of kidney function, eGFR values calculated with the CKD-EPI equation are not accurate in patients wi th acute kidney failure, extremes of body mass or the acutely ill. http://SigmaFlow/[facility]kf Specimen Anatomical Collection Method Collection Time Receive d Time (Source) Location / / Volume Laterality Blood specimen 08/15/2018 8:04 AM 019 8:20 (specimen) EST AM EST Resulting Agency Comment Spec In Lab Danette Maxwell APRN CHEMISTRY ORDERABLES Performing Organization Address City/State/Z[place] [address] Lipid Panel (08/15/2018 8:04 AM EST) P athologist Signature Chol, Total 75 mg/dL [facility] Comment: Lower Risk: <200 mg/dL Average Risk: 200-239 mg/dL Higher Risk: >iq=768 mg/dL Triglycerides 185 mg/dL [facility] Comment: Average Risk/Lower Risk: <150 mg/dL Borderline High Risk: 150-199 mg/dL High Risk: 200-499 mg/dL Very High Risk: >zo=298 mg/dL HDL 32 mg/dL [facility] Comment: Males: ?? Higher Risk: <40 mg/dL Females: ?? HIgher Risk: <50 mg/dL LDL Cholesterol 6 mg/dL [facility] Comment: Lowest Risk: <100 mg/dL Lower Risk: 100-129 mg/dL Borderline High Risk: 130-159 mg/dL High Risk: 160-189 mg/dL Very High Risk: >sy=972 mg/dL Chol/HDL Ratio 2.3 ratio [facility] Lipid Interpretation See Note [facility] Comment: Lipid management should be guided by a p atient? s ASCVD risk, goals and preferences. ACC/AHA Guidelines recommend high intens ity statin if clinical ASCVD or LDL greater than or equal to 190 mg/dL. http://[employer].com/KTI-QQX-Gvbkjklvv Adults aged 40-75 with LDL 70-189 mg/dL should have their 10 year ASCVD risk estimated with the ACC/AHA ASCVD risk es timator http://tools.acc.org/JXOSN-Akcw-Xxbwwicy r/ Statin should be discussed if risk [...] City/State/[place] [address] (ABNORMAL) pro-Brain Natriuretic Peptide (08/15/2018 8:04 AM EST) athologist Signature ProBNP 1,797 (H) <=[address] [address] pg/mL [facility] Specimen Anatomical Collection Method Collection Time Receive d Time (Source) Location / / Volume Laterality Blood specimen 08/15/2018 8:04 AM 019 8:20 (specimen) EST AM EST Resulting Agency Comment Spec In Lab Danette Maxwell APRN CHEMISTRY ORDERABLES Performing Organization Address City/State/[place] [address] documented in this encounter Visit Diagnoses Diagnosis Chronic systolic heart failure ASCVD (arteriosclerotic cardiovascular d isease) Unspecified cardiovascular disease documented in this encounter Care Teams Credit Coordinator Relationship Specialty Start Date End Date Lovely Vicente MD PCP - General 04/16/[address] [place] [address] documented as of this encounter
--- OUTSIDE RECORDS SUMMARY | 2022-04-22 08:17 | XMS_ITS | Encounter Summary ---
:1945 Author Organization [facility] [place] [address] Care Team Providers Name Role Phone Lovely Vicente MD Primary Care Provider Encounter Details Date Type Department Care Team Description 07/28/2019 Office Visit Cardiology at [facility] Danette Maxwell Chronic systolic heart failu re; [facility] A, STACIE ASHD (arteriosclerotic heart disease); Drive [facility] S/P CABG x 3; [place], [place] MARIA VICTORIA (obstructive sleep apnea) on CPAP; [id number] CARDIOLOGY Mixed hyperlipidemia [phone] [place], [place] [address] Social History Tobacco Use [...] in this encounter Progress Notes Danette Maxwell, NUDE MODEL - 07/28/2019 9:40 AM EST Images from [...] regurgitation present. 07/07/2019 - 07/21/2019 Zio Patch Actuarial Mathematician The patient had a minimum heart rate [...] shows 40 to 45% On BB and KIRSITN-I No spironolactone as K+ has been > [...] K+ 4.5 today 6. Post-op atrial fibrillation [id number] (CHF, HTN, DM, vascular disease, thromboembolism) [...] advised: Refer to EP (Dr. Mcelroy in [place]) 5. Heart Failure Clinic follow up scheduled for: 3 months with proBNP and BMP Danette Maxwell APRN 07/28/2019 documented in this encounter Plan of Treatment Upcoming Encounters Date Type Specialty Care Team Description 05/28/2022 Appointment Cardiology Zulma Dolan MD [facility] [place], [place] [address] (Wo rk) 05/28/2022 Laboratory Appointment Lab 05/28/2022 Office Visit Cardiology Zulma Dolan MD [facility] [place] [address] Liz Poole PA [facility] [place] [address] 06/10/2022 Office Visit Dermatology Laura Scherer MD [facility] DR TE[address]MAT [place], [place] [address] (Wo rk) documented as of this encounter Results (ABNORMAL) Basic Metabolic Panel (non-fasting) (07/28/2019 8:36 AM EST) P athologist Signature Glucose Lvl 153 65 - 199 [facility] mg/dL [facility] Comment: Diabetes: >=200 mg/dL plus symp toms BUN 22 (H) 10 - 20 mg/dL [facility] [...] 10.5 mg/dL [facility] Estimated GFR 70 >=60 mL/min/1.73 m?? [facility] Comment: The eGFR was calculated using the CKD-EP I equation. As with all creatinine based estimates of kidney function, eGFR values calculated with the CKD-EPI equation are not accurate in patients wi th acute kidney failure, extremes of body mass or the acutely ill. http://EcoVadis/[facility] eGFR 81 >=60 mL/min/1.73 m?? [facility] Comment: The eGFR was calculated using the CKD-EP I equation. As with all creatinine based estimates of kidney function, eGFR values calculated with the CKD-EPI equation are not accurate in patients wi th acute kidney failure, extremes of body mass or the acutely ill. http://EcoVadis/[facility] TULSAnkf Specimen Anatomical Collection Method Collection Time Receive d Time (Source) Location / / Volume Laterality Blood specimen 07/28/2019 8:36 AM 020 8:46 (specimen) EST AM EST Resulting Agency Comment Spec In Lab Danette Maxwell APRN CHEMISTRY ORDERABLES Performing Organization Address City/State/ZIP Code Phon e Number [address] (ABNORMAL) pro-Brain Natriuretic Peptide [...] - [place] [address] documented in this encounter Visit Diagnoses Diagnosis Chronic systolic heart failure ASHD (arteriosclerotic heart disease) Coronary atherosclerosis of unspecified type of vessel, [place] or graft S/P CABG x 3 Postsurgical aortocoronary bypass status MARIA VICTORIA (obstructive sleep apnea) on CPAP Obstructive sleep apnea (adult) (pediatr ic) Mixed hyperlipidemia documented in this encounter Care Teams Cell Tuber Machine Relationship Specialty Start Date End Date Lovely Vicente MD PCP - General 04/16/[address] [place] [address] documented as of this encounter
--- OUTSIDE RECORDS SUMMARY | 2022-04-22 08:17 | XMS_ITS | Encounter Summary ---
:1945 [place] [address] Care Team Providers Name Role Phone Lovely Vicente MD Primary Care Provider Encounter Details Date Type Department Care Team Description 08/15/2018 Laboratory Appointment [facility]L [facility] [place] [address] Social History Tobacco Use Types Packs/Day [...] MD [facility] er [place], [place] [address] (Wo rk) 05/28/2022 Laboratory Appointment Lab 05/28/2022 Office Visit Cardiology Zulma Dolan MD [facility] [place] [address] Liz Poole PA [facility] [place] [address] 06/10/2022 Office Visit Dermatology Laura Scherer MD [facility] ER [address] [place], [place] [address] (Wo rk) documented as of this encounter Procedures Procedure Name Priority Date/Time Associated Diagnosis Comme nts PROTHROMBIN TIME Routine 08/15/2018 8:04 AM Resul ts for this EST procedure are i n the results section. documented in this encounter Results (ABNORMAL) Prothrombin Time (08/15/2018 8:04 AM EST) P athologist Signature PT 24.0 (H) 9.4 - 12.5 [facility] LABORATORY INR 2.1 [facility] [...] Organization Address City/State/[place] [address] documented in this encounter Visit Diagnoses Not on filedocumented in this encounter Care Teams Sinter Feeder Relationship Specialty Start Date End Date Lovely Vicente MD PCP - General 04/16/[address] [place] [address] documented as of this encounter
--- OUTSIDE RECORDS SUMMARY | 2022-04-22 08:17 | XMS_ITS | Encounter Summary ---
:1945 Author Organization [facility] [place] [address] Care Team Providers Name Role Phone Lovely Vicente MD Primary Care Provider Encounter Details Date Type Department Care Team Description 03/20/2021 Ancillary Procedure Radiology Library [place] [address] [place] [address] [phone] Social History Tobacco Use Types Packs/Day Years [...] Dolan MD [facility] er [place], [place] [address] (Wo rk) 05/28/2022 Laboratory Appointment Lab 05/28/2022 Office Visit Cardiology Zulma Dolan MD [facility] [place] [address] Liz Poole PA [facility] [place] [address] 06/10/2022 Office Visit Dermatology Laura Scherer MD [facility] ER DR [address]MAT [place], [place] [address] (Wo rk) documented as of [...] filedocumented in this encounter Care Teams Bench Manager Relationship Specialty Start Date End Date Lovely Vicente MD PCP - General 04/16/[address] [place] [address] documented as of this encounter
--- OUTSIDE RECORDS SUMMARY | 2022-04-22 08:17 | XMS_ITS | Encounter Summary ---
:1945 Author Organization [facility] [place] [address] Care Team Providers Name Role Phone Lovely Vicente MD Primary Care Provider Encounter Details Date Type Department Care Team Description 03/20/2021 Ancillary Procedure Radiology Library [place] [address] [place] [address] [phone] Social History Tobacco Use Types Packs/Day Years [...] MD [facility] er [place], [place] [address] (Wo rk) 05/28/2022 Laboratory Appointment Lab 05/28/2022 Office Visit Cardiology Zulma Dolan MD [facility] [place] [address] Liz Poole PA [facility] [place] [address] 06/10/2022 Office Visit Dermatology Laura Scherer MD [facility] ER DR [address]DERMAT [place], [place] [address] (Wo rk) documented as of [...] Organization Address City/State/ZIP Code Phon e Number [place], [place] documented in this encounter Visit Diagnoses Not on filedocumented in this encounter Care Teams Garment Parts Cutter Hand Relationship Specialty Start Date End Date Lovely Vicente MD PCP - General 04/16/[address] [place] [address] documented as of this encounter
--- OUTSIDE RECORDS SUMMARY | 2022-04-22 08:18 | XMS_ITS | Encounter Summary ---
:1945 Author Organization [facility] [place] [address] Care Team Providers Name Role Phone Lovely Vicente MD Primary Care Provider Reason for Visit Reason Comments Follow-up Encounter Details Date Type Department Care Team Description 08/19/2017 Office Visit Cardiac Surgery at [place], Jock S/P C ABG (coronary [facility], artery bypass graft) [facility] [place] CARDIOTHORACIC [address] SURGERY [phone] [place], [place] [address] Social History Tobacco Use Types [...] office. Best personal regards, Yuan [facility] MD [phone] documented in this encounter Plan of Treatment Upcoming Encounters Date Type Specialty Care Team Description 05/28/2022 Appointment Cardiology Zulma Dolan MD [facility] er [address] [place] [address] (Wo rk) 05/28/2022 Laboratory Appointment Lab 05/28/2022 Office Visit Cardiology Zulma Dolan MD [facility] [place] [address] Liz Poole PA [facility] [place] [address] 06/10/2022 Office Visit Dermatology Laura Scherer MD [facility] ER DR [address] [place] [address] (Wo rk) documented as of this encounter [...] 454 ms MUSE SYSTEM (Bezet) Calculated P [place] 20 degrees MUSE SYSTEM Calculated R [place] -29 degrees MUSE SYSTEM Calculated T [place] 121 degrees MUSE SYSTEM INTERPRETATION Normal sinus rhythm MUSE SYSTEM Inferior infarct (cited on or before 25-JAN-2013) Anterior 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) T wave abnormality, consider lateral ischemia Abnormal ECG When compared with ECG of 06-AUG-2017 12:37, No signif icant change was found Confirmed by MD Luci, Taurus Braun ([id number]) on 08/19/2017 1 0:37:38 PM Specimen Anatomical [...] status documented in this encounter Care Teams Assistant Professor Of Dietetics Relationship Specialty Start Date End Date Lovely Vicente MD PCP - General 04/16/[address] [place] [address] documented as of this encounter
--- OUTSIDE RECORDS SUMMARY | 2022-04-22 08:18 | XMS_ITS | Encounter Summary ---
:1945 Author Organization [facility] [place] [address] Care Team Providers Name Role Phone Lovely Vicente MD Primary Care Provider Encounter Details Date Type Department Care Team Description 09/07/2017 Office Visit Endocrinology at [facility] Maria Ines Stallings of [facility] [place] [address] CENTER [phone] ENDOCRINOLOGY DEPT [place], [place] [address] Social History Tobacco Use Types [...] Dolan MD [facility] er Dr [place], [place] [address] (Wo rk) 05/28/2022 Laboratory Appointment Lab 05/28/2022 Office Visit Cardiology Zulma Dolan MD [facility] [place] [address] Liz Poole PA [facility] [place] [address] 06/10/2022 Office Visit Dermatology Laura Scherer MD [facility] ER DR [address] [place], [place] [address] (Wo rk) documented as of this encounter Visit Diagnoses Diagnosis Hx of papillary thyroid carcinoma Personal history of malignant neoplasm o f thyroid documented in this encounter Care Teams Hardwood Floor Layer Relationship Specialty Start Date End Date Lovely Vicente MD PCP - General 04/16/15 [facility] [address] [place] [address] documented as of this encounter
--- OUTSIDE RECORDS SUMMARY | 2022-04-22 08:18 | XMS_ITS | Encounter Summary ---
:1945 Author Organization [facility] Address [facility] [place] [address] Care Team Providers Name Role Phone Lovely Vicente MD Primary Care Provider Encounter Details Date Type Department Care Team Description 10/07/2017 Office Visit Cardiology at [facility] Danette Maxwell Chronic systolic heart failu re; [facility] A, SPRAYER HAND S/P CABG x 3; Drive [facility] On amiodarone therapy; [place], [place] Atrial fibrillation, unspecified type; [address] CARDIOLOGY ASCVD (arteriosclerotic cardiovascular d isease) [phone] [place], [place] [address] Social History Tobacco Use Types [...] - documented in this encounter Progress Notes [place] Danette A, SPRAYER HAND - 10/07/2017 11:20 AM EDT ID [...] 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 [...] Dr. Espino On IV antibiotics at [facility] Today: Mr. Fatima is accompanied by his [...] continue to see Dr. Bains well at [facility] and follow his wound on his right lower extremity. And she will continue to direct antibiotic treatment. Ihave asked that the echocardiogram results be faxed to Dr. Zurita at [facility]. 1. ASCVD Continue ASA, BB and [...] bone removal by Dr. Aguero at [facility]. Currently receiving IV antibiotics at [facility] ? Plan: 1. A review of the [...] MD [facility] Dr [place], [place] [address] (Wo rk) 05/28/2022 Laboratory Appointment Lab 05/28/2022 Office Visit Cardiology Zulma Dolan MD [facility] [place] [address] Lzi Poole PA [facility] [place] [address] 06/10/2022 Office Visit Dermatology Laura Scherer MD [facility] DR [address] [place], [place] [address] (Wo rk) documented as of this encounter Results (ABNORMAL) Basic Metabolic Panel (non-fasting) (10/07/2017 8:48 AM EDT) athologist Signature Glucose Lvl 99 65 - 199 [facility] mg/dL [facility] Comment: Diabetes: [...] [facility] Estimated GFR >60 >=60 [facility] Comment: The reported eGFR should be multiplied b y 1.2 for patients. The MDRD is not an appropriate measure o f renal function for patients with body mass extremes or in patients with acute kidney failure. http://[employer].PixelFish/DHnkdep http://[facility]/DHMCnkf Specimen Anatomical Collection Method Collection Time Receive d Time (Source) Location / / Volume Laterality Blood specimen 10/07/2017 8:48 AM 018 8:50 (specimen) EDT AM EDT Resulting Agency Comment Spec In Lab Danette Maxwell APRN CHEMISTRY ORDERABLES Performing Organization Address City/State/[place] [address] (ABNORMAL) pro-Brain Natriuretic Peptide (10/07/2017 8:48 AM EDT) P athologist Signature ProBNP 1,170 (H) <=125 [facility] pg/mL [facility] Specimen Anatomical Collection Method Collection Time Receive d Time (Source) Location / / Volume Laterality Blood specimen 10/07/2017 8:48 AM 018 8:50 (specimen) EDT AM EDT Resulting Agency Comment Spec In Lab Danette Maxwell APRN CHEMISTRY ORDERABLES Performing Organization Address City/State/[place] [address] documented in this encounter Visit Diagnoses Diagnosis Chronic systolic heart failure S/P CABG x 3 Postsurgical aortocoronary bypass status On amiodarone therapy Atrial fibrillation, unspecified type ASCVD (arteriosclerotic cardiovascular d isease) Unspecified cardiovascular disease documented in this encounter Care Teams Seismic Computer Relationship Specialty Start Date End Date Lovely Vicente MD PCP - General 04/16/[address] [place] [address] documented as of this encounter
--- OUTSIDE RECORDS SUMMARY | 2022-04-22 08:18 | XMS_ITS | Encounter Summary ---
:1945 Author Organization [facility] [place] [address] Care Team Providers Name Role Phone Lovely Vicente MD Primary Care Provider Encounter Details Date Type Department Care Team Description 08/19/2017 Hospital Encounter XRay at [facility] Martha Teague, S/P CABG x [address] [facility] [place] [address] [place] [address] RD [phone] [facility] [place], [place] [address] (Wo rk) Social History [...] Zulma Dolan MD [facility] [place], [place] [address] (Wo rk) 05/28/2022 Laboratory Appointment Lab 05/28/2022 Office Visit Cardiology Zulma Dolan MD [facility] [place] [address] Liz Poole PA [facility] [place] [address] 06/10/2022 Office Visit Dermatology Laura Scherer MD [facility] DR [address] [place], [place] [address] (Wo rk) documented as of [...] 2017 EXAMINATION: XR CHEST PA AND LATERAL (Mint SolutionsIC) CLINICAL HISTORY: CABG x 3 TECHNIQUE: PA [...] status documented in this encounter Care Teams Control Systems Eng Relationship Specialty Start Date End Date Lovely Vicente MD PCP - General 04/16/[address] [place], [place] [address]Y [facility] [place] [address] documented as of this encounter
--- OUTSIDE RECORDS SUMMARY | 2022-04-22 08:18 | XMS_ITS | Encounter Summary ---
:1945 Author Organization [facility] [place] [address] Care Team Providers Name Role Phone Lovely Vicente MD Primary Care Provider Reason for Referral Diagnostic Test (Routine) - Closed Specialty Diagnoses / Procedures Referred By Contact Refer red To Contact Cardiology Diagnoses Ischemic cardiomyopathy Acute on chronic systolic congestive heart failure Danette Maxwell APRN [facility] Non-Inv Card Lab Procedures Echocardiogram Transthoracic(Leb) [facility] [place] [address] [place] [address] Referral ID Status Reason Start Date Expiration Date Visits V isits Requested Authorized [id number] Closed Specialty 08/30/2017 08/30/2018 1 1 Service Requested Reason for Visit Diagnostic Test (Routine) - Closed Specialty Diagnoses / Procedures Referred By Contact Refer red To Contact Cardiology Diagnoses Ischemic cardiomyopathy Acute on chronic systolic congestive heart failure Danette Maxwell APRN [facility] Non-Inv Card Lab Procedures Echocardiogram Transthoracic(Leb) [facility] [place] [address] [place] [address] Referral ID Status Reason Start Date Expiration Date Visits V isits Requested Authorized [id number] Closed Specialty 08/30/2017 08/30/2018 1 1 Service Requested Encounter Details Date Type Department Care Team Description 10/07/2017 Hospital Encounter Non-Invasive Ischemic cardiomyopathy; Cardiology Lab Barbara Craig on chronic systolic [place] [address] Social History Tobacco Use Types Packs/Day [...] Description 05/28/2022 Appointment Cardiology Zulma Dolan MD [facility] [address] [place], [place] [address] (Wo rk) 05/28/2022 Laboratory Appointment Lab 05/28/2022 Office Visit Cardiology Zulma Dolan [place] [address] Liz Poole PA [facility] [place] [address] 06/10/2022 Office Visit Dermatology Laura Scherer MD [facility] [address] [place], [place] [address] (Wo rk) documented as of [...] Mccollum ? (Age): 1945(72y) Med Rec#: ? [id number] ?Sex: ?M ? Site Loc: ? [facility] ?Ht / Wt: ??173(cm)/82(kg) Pt. Loc: ?Echo Lab ?BSA: ?1.96 Study Date: ?? 10/07/2017 ?Pt. Type: Outpatient Tape: ? Referring: Danette Maxwell Reading: Iker Cuevas ([id number]) Pharmaceutical Sales: Yonathan Bocanegra Diagnosis: *ICD-10-PCS Ischemic cardiomyopathy (I2 [...] E-wave Vmax ?1.2 ?m/sec ? MV deceleration [id number] ?msec ? MV A-wave Vmax ?1 ?m/sec [...] ? Mid-Inferior ?Hypokinetic ? Mid-Inferoseptal ?Hypokinetic ? Delight-Septal ? Akinetic ? Delight-Anterior ? Hypokinetic ? Delight-Lateral ?Hypokinetic ? Delight-Inferior ? Hypokinetic ? Delight-Tip ?Akinetic ? This report has been electronically sign ed by: _ Iker Cuevas M.D. ? 10/07/2017 11:12:34 Images reviewed and interpretation verif ied [facility] Cardiac Ultrasound Laboratory Procedure Note Iker Cuevas MD - 10/07/2017Formatti ng of this note might be different from the original. Procedure: Transthoracic Echocardiogram Patient: NATALYA [facility](Age): [birth year]72y) Med Rec#: [id number] Sex: M Site Loc: [facility] Ht / Wt: 173(cm)/82(kg) Pt. Loc: Echo Lab BSA: 1.96 Study Date: 10/07/2017 Pt. Type: Outpati ent Tape: Referring: Danette Maxwell Reading: Iker Cuevas ([id number]) Pharmaceutical Sales: Yonathan Bocanegra Diagnosis: *ICD-10-PCS Ischemic cardiomyopathy (I2 [...] MV E-wave Vmax 1.2 m/sec MV deceleration [id number] msec MV A-wave Vmax 1 m/sec MV [...] Akinetic Mid-Posterolateral Hypokinetic Mid-Inferior Hypokinetic Mid-Inferoseptal Hypokinetic Delight-Septal Akinetic Delight-Anterior Hypokinetic Delight-Lateral Hypokinetic Delight-Inferior Hypokinetic Delight-Tip Akinetic This report has been electronically sign ed by: _ Iker Cuevas M.D. 10/07/2017 11:12 :34 Images reviewed and interpretation elvie hwang [facility] Cardiac Ultrasound Laboratory [...] Routine documented in this encounter Care Teams Quick Service Technician Relationship Specialty Start Date End Date Lovely Vicente MD PCP - General 04/16/[address] [place] [address] documented as of this encounter
--- OUTSIDE RECORDS SUMMARY | 2022-04-22 08:18 | XMS_ITS | Encounter Summary ---
:1945 Author Organization [facility] [place] [address] Care Team Providers Name Role Phone Lovely Vicente MD Primary Care Provider Reason for Visit Reason Onset Date Comments Other 11/11/[address] [facility] Encounter Details Date Type Department Care Team Description 11/11/2017 Telephone Cardiology at [facility] Danette Maxwell, Other (Please call [facility] SURFACE GRINDER TENDER [facility] ) [place] [address] CARDIOLOGY [place], [place] [address] (Wo rk) Social History [...] Cardiology Zulma Dolan MD [facility] [address] [place], [place] [address] (Wo rk) 05/28/2022 Laboratory Appointment Lab 05/28/2022 Office Visit Cardiology Zulma Dolan MD [facility] [place] [address] Liz Poole PA [facility] [place] [address] 06/10/2022 Office Visit Dermatology Laura Scherer MD [facility] [address] [place], [place] [address] (Wo rk) documented as of this encounter Visit Diagnoses Not on filedocumented in this encounter Care Teams Cdl Company Driver Relationship Specialty Start Date End Date Lovely Vicente MD PCP - General 04/16/15 [facility] [address] [place] [address] documented as of this encounter
--- OUTSIDE RECORDS SUMMARY | 2022-04-22 08:18 | XMS_ITS | Encounter Summary ---
:1945 Author Organization [facility] [place] [address] Care Team Providers Name Role Phone Lovely Vicente MD Primary Care Provider Encounter Details Date Type Department Care Team Description 11/29/2017 Office Visit Cardiology at [facility] Annette Maxwell Chronic systolic congestive heart failure; [facility] A, VALIDATION CONSULTANT ASCVD (arteriosclerotic cardiovascular d isease); [facility] Cardiomyopathy, ischemic; [place], [place] PAD (peripheral artery disease) [phone] CARDIOLOGY [phone] [place], [place] [address] Social History Tobacco Use [...] in this encounter Progress Notes Annette Maxwell, VALIDATION CONSULTANT - 11/29/2017 9:20 AM EDT ID [...] 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 [...] using left greater saphenous vein (done at [facility]), debridement of right foot with wound vac [...] right popliteal-pedal bypass at [facility] ? Plan: 1. A review of the [...] Cardiology Zulma Dolan MD [facility] [place], [place] [address] (Wo rk) 05/28/2022 Laboratory Appointment Lab 05/28/2022 Office Visit Cardiology Zulma Dolan MD [facility] [place] [address] Liz Poole PA [facility] [place] [address] 06/10/2022 Office Visit Dermatology Laura Scherer MD [facility] [address] [place], [place] [address] (Wo rk) documented as of this encounter Results Arterial Duplex Leg, Unil (11/29/2017 10:32 AM EDT) Component Value Ref Test Analysis Performed At [facility] Range Method Time Signature VB Text Department: Vascular Surgery Lab VASCUBASE Report Patient: [id number] (GREGORY HOANG) CPT: 49851 ICD10: I72.4;I73.9 Referring Physician: ANNETTE MAXWELL ?? [...] (H) 65 - 199 [facility] mg/dL [facility] Comment: Diabetes: >=200 mg/dL plus symp toms BUN 26 (H) 10 - 20 mg/dL [facility] Creatinine 0.96 0.80 - 1.50 mg/dL [facility] Sodium 137 135 - 145 mmol/L [facility] Potassium 4.1 3.5 - 5.0 mmol/L [facility] [...] or in patients with acute kidney failure. http://[employer].Accuvant/DHnkdep http://Jade Magnet/DHMCnkf Specimen Anatomical Collection Method Collection Time Receive d Time (Source) Location / / Volume Laterality Blood specimen 11/29/2017 8:22 AM 05/07/2 018 8:29 (specimen) EDT AM EDT Resulting Agency Comment Spec In Lab Annette Maxwell VALIDATION CONSULTANT CHEMISTRY ORDERABLES Performing Organization Address City/State/[place] [address] (ABNORMAL) pro-Brain Natriuretic Peptide (11/29/2017 8:22 AM EDT) P athologist Signature ProBNP 1,769 (H) <=125 [facility] pg/mL [facility] Specimen Anatomical Collection Method Collection Time Receive d Time (Source) Location / / Volume Laterality Blood specimen 11/29/2017 8:22 AM 018 8:29 (specimen) EDT AM EDT Resulting Agency Comment Spec In Lab Annette Maxwell VALIDATION CONSULTANT CHEMISTRY ORDERABLES Performing Organization Address City/[facility]/[place] [address] documented in this encounter Visit Diagnoses Diagnosis Chronic systolic congestive heart failur e Chronic systolic heart failure ASCVD (arteriosclerotic cardiovascular d isease) Unspecified cardiovascular disease Cardiomyopathy, ischemic Other specified forms of chronic ischemi c heart disease PAD (peripheral artery disease) Peripheral vascular disease, unspecified documented in this encounter Care Teams Upholstery Parts Sorter Relationship Specialty Start Date End Date Lovely Vicente MD PCP - General 04/16/[address] [place] [address] documented as of this encounter
--- OUTSIDE RECORDS SUMMARY | 2022-04-22 08:18 | XMS_ITS | Encounter Summary ---
:1945 Author Organization [facility] [place] [address] Care Team Providers Name Role Phone Lovely Vicente MD Primary Care Provider Encounter Details Date Type Department Care Team Description 10/07/2017 Laboratory Appointment Lab [address] [facility] [place] [id number] Social History Tobacco Use Types Packs/Day Years [...] MD [facility] [place], [place] [address] (Wo rk) 05/28/2022 Laboratory Appointment Lab 05/28/2022 Office Visit Cardiology Zulma Dolan MD [facility] [place] [address] Liz Poole PA [facility] [place] [address] 06/10/2022 Office Visit Dermatology Laura Scherer MD [facility] ER DR [address] [place] [facility] [place] Amy (Wo rk) documented as of [...] Signature Glucose Lvl 99 65 - 199 [facility] mg/dL [facility] Comment: Diabetes: >=200 mg/dL plus symp toms BUN 27 (H) 10 - 20 mg/dL [facility] Creatinine 1.07 0.80 - [...] 15 mmol/L [facility] Calcium 8.4 (L) 8.5 - 10.5 mg/dL [facility] Estimated GFR >60 >=60 [facility] Comment: The reported eGFR should be multiplied b y 1.2 for patients. The MDRD is not an appropriate measure o f renal function for patients with body mass extremes or in patients with acute kidney failure. http://[employer].Fanaticall/DHnkdep http://[employer].Fanaticall/DHMCnkf Specimen Anatomical Collection Method Collection Time Receive d Time (Source) Location / / Volume Laterality Blood specimen 10/07/2017 8:48 AM 018 8:50 (specimen) EDT AM EDT Resulting Agency Comment Spec In Lab Danette Maxwell BIOMEDICAL SERVICE ENGINEER CHEMISTRY ORDERABLES Performing Organization Address City/[facility]/ZIP Code Phon e Number [address] (ABNORMAL) pro-Brain Natriuretic Peptide (10/07/2017 8:48 AM EDT) athologist Signature ProBNP 1,170 (H) <=125 [facility] pg/mL [facility] Specimen Anatomical Collection Method Collection Time Receive d Time (Source) Location / / Volume Laterality Blood specimen 10/07/2017 8:48 AM 018 8:50 (specimen) EDT AM EDT Resulting Agency Comment Spec In Lab Danette A Hans QUINONES CHEMISTRY ORDERABLES Performing Organization Address City/State/[place] [address] documented in this encounter Visit Diagnoses Diagnosis Chronic systolic heart failure documented in this encounter Care Teams Pace Analyst Relationship Specialty Start Date End Date Lovely Vicente MD PCP - General 04/16/[address] [place] [address] documented as of this encounter
--- OUTSIDE RECORDS SUMMARY | 2022-04-22 08:18 | XMS_ITS | Encounter Summary ---
:1945 Author Organization [facility] [place] [address] Care Team Providers Name Role Phone Lovely Vicente MD Primary Care Provider Encounter Details Date Type Department Care Team Description 08/26/2017 Hospital Encounter Vascular Lab at [facility], Athero embolism of foot, right; [place], [place] Delayed surgi nusrat wound healing, [place] [phone] Social History Tobacco Use Types Packs/Day Years [...] Dolan MD [facility] [address] [place], [place] [address] (Wo rk) 05/28/2022 Laboratory Appointment Lab 05/28/2022 Office Visit Cardiology Zulma Dolan MD [facility] [place] [address] Liz Poole PA [facility] [place] [address] 06/10/2022 Office Visit Dermatology Laura Scherer MD [facility] DR [address] [place], [place] [address] (Wo rk) documented as of [...] Department: Vascular Surgery Lab VASCUBASE Report Patient: [id number] (DON HOANG) CPT: 98495 ICD10: T81.89XA;I75.021 Referring Physician: ELVER BLOOM ?? [...] encounter documented in this encounter Care Teams Thermal Cutting Tracer Machine Operator Relationship Specialty Start Date End Date Lovely Vicente MD PCP - General 04/16/[address] [place] [address] documented as of this encounter
--- OUTSIDE RECORDS SUMMARY | 2022-04-22 08:18 | XMS_ITS | Encounter Summary ---
:1945 Author Organization [facility] [place] [address] Care Team Providers Name Role Phone Lovely Vicente MD Primary Care Provider Reason for Visit Reason Comments Skin Check Encounter Details Date Type Department Care Team Description 07/06/2018 Office Visit Dermatology at [facility], Rigoberto Yarbrough (actinic keratosis); MD SHAY Quick III (seborrheic keratosis); [address] [place] History of melanoma; [place] [address] Skin exam for malignant neoplasm [phone] [facility] [place], [place] [address] Social History Tobacco Use Types [...] Dolan MD [facility] Dr [place], [place] [address] (Wo rk) 05/28/2022 Laboratory Appointment Lab 05/28/2022 Office Visit Cardiology Zulma Dolan MD [facility] [place] [address] Liz Poole PA [facility] [place] [address] 06/10/2022 Office Visit Dermatology Laura Scherer MD [facility] DR [address] [place], [place] 0[address] (Wo rk) documented as of this encounter Visit Diagnoses Diagnosis AK (actinic keratosis) Actinic keratosis [place] (seborrheic keratosis) Other seborrheic keratosis History of melanoma Personal history of malignant melanoma o f skin Skin exam for malignant neoplasm Screening for malignant neoplasm of the skin documented in this encounter Care Teams Press Department Manager Relationship Specialty Start Date End Date Lovely Vicente MD PCP - General 04/16/[address] [place] [address] documented as of this encounter
--- OUTSIDE RECORDS SUMMARY | 2022-04-22 08:18 | XMS_ITS | Encounter Summary ---
:1945 Author Organization [facility] [place] [address] Care Team Providers Name Role Phone Lovely Vicente MD Primary Care Provider Encounter Details Date Type Department Care Team Description 11/29/2017 Laboratory Lab 3L Barbara Chronic systoli c congestive heart failure; Appointment [facility] ASCVD (ar teriosclerotic cardiovascular disease); Hospital Cardiomyopathy, [place] [address] Social History Tobacco Use Types [...] MD [facility] [place], [place] [address] (Wo rk) 05/28/2022 Laboratory Appointment Lab 05/28/2022 Office Visit Cardiology Zulma Dolan MD [facility] [place] [address] Liz Poole PA [facility] [place] [address] 06/10/2022 Office Visit Dermatology Laura Scherer MD [facility] ER DR [address] [place], [place] [address] (Wo rk) documented as of [...] Signature PT 23.0 (H) 9.4 - 12.5 [facility] LABORATORY INR 2.1 [facility] LABORATORY [...] Organization Address City/State/[place] [address] (ABNORMAL) Basic Metabolic Panel (non-fasting) (11/29/2017 8:22 AM EDT) P athologist Signature Glucose Lvl 217 (H) 65 - 199 [facility] mg/dL [facility] [...] [facility] Estimated GFR >60 >=60 [facility] Comment: The reported eGFR should be multiplied b y 1.2 for patients. The MDRD is not an appropriate measure o f renal function for patients with body mass extremes or in patients with acute kidney failure. http://[employer]ier[employer].Admify/DHnkdep http://[employer]/DHMCnkf Specimen Anatomical Collection Method Collection Time Receive d Time (Source) Location / / Volume Laterality Blood specimen 11/29/2017 8:22 AM 018 8:29 (specimen) EDT AM EDT Resulting Agency Comment Spec In Lab Danette Maxwell APRN CHEMISTRY ORDERABLES Performing Organization Address City/State/[place] [address] (ABNORMAL) pro-Brain Natriuretic Peptide (11/29/2017 8:22 AM EDT) P athologist Signature ProBNP 1,769 (H) <=125 [facility] pg/mL [facility] Specimen Anatomical Collection Method Collection Time Receive d Time (Source) Location / / Volume Laterality Blood specimen 11/29/2017 8:22 AM 018 8:29 (specimen) EDT AM EDT Resulting Agency Comment Spec In Lab Danette Maxwell APRN CHEMISTRY ORDERABLES Performing Organization Address City/State/ZIP Code Phon e Number [address] Lavender Tube HOLD (11/29/2017 8:14 AM EDT) Patholo gist Method Time Signature Lavender Hold Sample in [facility] lab. [facility] Specimen Anatomical Collection Method Collection Time Receive d Time (Source) Location / / Volume Laterality Blood specimen No Charge / 11/29/2017 8:14 AM 018 8:29 (specimen) Unknown EDT AM EDT Lovely Vicente MD HEMATOLOGY ORDERABLES Performing Organization Address City/State/[place] [address] documented in this encounter Visit Diagnoses Diagnosis Chronic systolic congestive heart failur e Chronic systolic heart failure ASCVD (arteriosclerotic cardiovascular d isease) Unspecified cardiovascular disease Cardiomyopathy, ischemic Other specified forms of chronic ischemi c heart disease documented in this encounter Care Teams Executive Director Global Brand Marketing Relationship Specialty Start Date End Date Lovely Vicente MD PCP - General 04/16/[address] [place] [address] documented as of this encounter
--- OUTSIDE RECORDS SUMMARY | 2022-04-22 08:18 | XMS_ITS | Encounter Summary ---
:1945 Author Organization [facility] [place] [address] Care Team Providers Name Role Phone Lovely Vicente MD Primary Care Provider Encounter Details Date Type Department Care Team Description 04/18/2018 Laboratory Appointment Lab 3L [facility] [place] [id number] Social History Tobacco Use Types Packs/Day Years [...] MD [facility] [place], [place] [address] (Wo rk) 05/28/2022 Laboratory Appointment Lab 05/28/2022 Office Visit Cardiology Zulma Dolan MD [facility] [place] [address] Liz Poole PA [facility] [place] [address] 06/10/2022 Office Visit Dermatology Laura Scherer MD [facility] ER DR [address] [place], [place] [address] (Wo rk) documented as [...] Signature Total Protein 7.6 6.1 - 8.0 [facility] gm/dL [facility] Albumin 4.0 3.2 - 5.2 [facility] gm/dL [facility] AST 36 0 - 39 [facility] unit/L [facility] ALT 27 0 - 55 [facility] unit/L [facility] Alk Phos 96 40 - 120 [facility] unit/L [facility] Total 0.7 0.2 - 1.3 [place] [employer] Bilirubin mg/dL [facility] Bili, Direct 0.1 0.0 - 0.3 [facility] mg/dL [facility] Specimen Anatomical Collection Method Collection Time Receive d Time (Source) Location / / Volume Laterality Blood specimen Venous Draw / 04/18/2018 9:19 AM 2017 9:44 (specimen) Unknown EDT AM EDT Resulting Agency Comment Spec In Lab Danette Maxwell APRN CHEMISTRY ORDERABLES Performing Organization Address City/State/[place] [address] TSH (04/18/2018 9:19 AM EDT) athologist Signature TSH 1.77 0.27 - 4.20 [facility] mlU/ML [facility] Specimen Anatomical Collection Method Collection Time Receive d Time (Source) Location / / Volume Laterality Blood specimen Venous Draw / 04/18/2018 9:19 AM 2017 9:44 (specimen) Unknown EDT AM EDT Resulting Agency Comment Spec In Lab Danette Maxwell APRN CHEMISTRY ORDERABLES Performing Organization Address City/State/[place] [address] (ABNORMAL) Basic Metabolic Panel (non-fasting) (04/18/2018 9:19 AM EDT) athologist Signature Glucose Lvl 167 65 - 199 [facility] mg/dL [facility] Comment: Diabetes: >=200 mg/dL plus symp toms BUN 18 10 - 20 mg/dL [facility] Creatinine 1.19 0.80 - 1.50 mg/dL [facility] Sodium 147 (H) 135 - 145 mmol/L [facility] [...] 31 mmol/L [facility] Anion Gap 23 (H) 5 - 15 mmol/L [facility] Calcium 9.3 8.5 - 10.5 mg/dL [facility] Estimated GFR 61 >=60 mL/min/1.73 m?? [facility] Comment: The eGFR was calculated using the CKD-EP I equation. As with all creatinine based estimates of kidney function, eGFR values calculated with the CKD-EPI equation are not accurate in patients wi th acute kidney failure, extremes of body mass or the acutely ill. http://[employer]/DHMCnkf eGFR 70 >=60 mL/min/1.73 m?? [facility] Comment: The eGFR was calculated using the CKD-EP I equation. As with all creatinine based estimates of kidney function, eGFR values calculated with the CKD-EPI equation are not accurate in patients wi th acute kidney failure, extremes of body mass or the acutely ill. http://[employer]/DHnkf Specimen Anatomical Collection Method Collection Time Receive d Time (Source) Location / / Volume Laterality Blood specimen 04/18/2018 9:19 AM 018 9:34 (specimen) EDT AM EDT Resulting Agency Comment Spec In Lab Danette Maxwell APRN CHEMISTRY ORDERABLES Performing Organization Address City/[facility]/[place] [address] (ABNORMAL) pro-Brain Natriuretic Peptide (04/18/2018 9:19 AM EDT) P athologist Signature ProBNP 2,199 (H) <=125 [facility] pg[facility]mL [facility] Specimen Anatomical Collection Method Collection Time Receive d Time (Source) Location / / Volume Laterality Blood specimen 04/18/2018 9:19 AM 018 9:34 (specimen) EDT AM EDT Resulting Agency Comment Spec In Lab Danette Maxwell APRN CHEMISTRY ORDERABLES Performing Organization Address City/[facility]/[place] [address] documented in this encounter Visit Diagnoses Diagnosis Chronic systolic heart failure documented in this encounter Care Teams Compliance Nurse Relationship Specialty Start Date End Date Lovely Vicente MD PCP - General 04/16/[address] [place] [address] documented as of this encounter
--- OUTSIDE RECORDS SUMMARY | 2022-04-22 08:18 | XMS_ITS | Encounter Summary ---
:1945 Author Organization [facility] Address [facility] [place] [address] Care Team Providers Name Role Phone Lovely Vicente MD Primary Care Provider Reason for Referral Diagnostic Test (Routine) - Specialty Diagnoses / Procedures Referred By Contact Refer red To Contact Cardiology Diagnoses Chronic systolic heart failure Danette Maxwell APRN [facility] Non-Inv Card Lab Procedures Echocardiogram Transthoracic(Leb) [facility] [place] [address] [place] [address] Referral ID Status Reason Start Date Expiration Visits Visits Date Requested Authorized [id number] Specialty 08/15/2018 08/15/2018 1 1 Service Requested Encounter Details Date Type Department Care Team Description 04/18/2018 [place] Cardiology [place] [facility] Danette Maxwell Chronic systolic heart failu re; [facility] STACIE Gomes On amiodarone therapy; [facility] Ischemic cardiomyopathy; [place], [place] DR ONOFRE (arteriosclerotic cardiovascular d isease) [phone] CARDIOLOGY [phone] [place], [place] [address] Social History Tobacco Use Types Packs/Day Years [...] in this encounter Progress Notes Danette Maxwell, RELIGIOUS EDUCATOR - 04/18/2018 10:40 AM EDT ID and [...] Dolan MD [facility] [address] [place], [place] [address] (Wo rk) 05/28/2022 Laboratory Appointment Lab 05/28/2022 Office Visit Cardiology Zulma Dolan MD [facility] [place] [address] Liz Poole PA [facility] [place] [address] 06/10/2022 Office Visit Dermatology Laura Scherer MD [facility] DR [address] [place], [place] [address] (Wo rk) documented [...] Mccollum ? (Age): 1945(73y) Med Rec#: ? [id number] ?Sex: ?M ? Site Loc: ? [facility] ?Ht / Wt: ??172(cm)/81(kg) Pt. Loc: ?Echo Lab ?BSA: ?1.94 Study Date: ?? 08/15/2018 ?Pt. Type: Outpatient Tape: ? Referring: MARY ELLEN Reading: Scott Ortega ([id number]) Title Investigator: Laura Sargent Diagnosis: *Chronic systolic (congestive) heart [...] E-wave Vmax ?1.2 ?m/sec ? MV deceleration [id number] ? msec ? MV A-wave Vmax ?0.7 [...] ? Mid-Inferior ?Hypokinetic ? Mid-Inferoseptal ?Hypokinetic ? [place]-Septal ? Akinetic ? [place]-Anterior ? Hypokinetic ? [place]-Lateral ?Akinetic ? [place]-Inferior ? Hypokinetic ? [place]-Tip ?Akinetic ? This report has been electronically sign ed by: _ Scott Ortega M.D. ? 08/15/2018 08:17:26 Images reviewed and interpretation verif ied [facility] Cardiac Ultrasound Laboratory Procedure Note Scott Orteag MD - 08/15/2018Format ting of this note might be different from the original. Procedure: Transthoracic Echocardiogram Patient: NATALYA MCBRIDE(Age): [birth year]73y) Med Rec#: [id number] Sex: M Site Loc: [facility] Ht / Wt: 172(cm)/81(kg) Pt. Loc: Echo Lab BSA: 1.94 Study Date: 08/15/2018 Pt. Type: Outpati ent Tape: Referring: MARY ELLEN Reading: Scott Ortega ([id number]) Title Investigator: Laura Sargent Diagnosis: *Chronic systolic (congestive) heart [...] MV E-wave Vmax 1.2 m/sec MV deceleration [id number] msec MV A-wave Vmax 0.7 m/sec MV [...] Akinetic Mid-Posterolateral Akinetic Mid-Inferior Hypokinetic Mid-Inferoseptal Hypokinetic [place]-Septal Akinetic [place]-Anterior Hypokinetic [place]-Lateral Akinetic [place]-Inferior Hypokinetic [place]-Tip Akinetic This report has been electronically sign ed by: _ Scott Ortega M.D. 08/15/2018 08:17: 26 Images reviewed and interpretation verif ied [facility] Cardiac Ultrasound Laboratory Danette Maxwell APRN ECHO ORDERABLES (ABNORMAL) Basic Metabolic Panel (non-fasting) (04/18/2018 9:19 AM EDT) P athologist Signature Glucose Lvl 167 65 - [address] [facility] mg/dL [facility] Comment: Diabetes: >=200 mg/dL plus symp toms BUN 18 10 - 20 mg/dL [facility] Creatinine 1.19 0.80 - 1.50 mg/dL [facility] Sodium 147 (H) 135 [...] mmol/L [facility] Anion Gap 23 (H) 5 - 15 mmol/L [facility] Calcium 9.3 8.5 - 10.5 mg/dL [facility] Estimated GFR 61 >=60 mL/min/1.73 m?? [facility] Comment: The eGFR was calculated using the CKD-EP I equation. As with all creatinine based estimates of kidney function, eGFR values calculated with the CKD-EPI equation are not accurate in patients wi th acute kidney failure, extremes of body mass or the acutely ill. http://[employer]/[facility] CL[facility]OREnkf eGFR 70 >=60 mL/min/1.73 m?? [facility] Comment: The eGFR was calculated using the CKD-EP I equation. As with all creatinine based estimates of kidney function, eGFR values calculated with the CKD-EPI equation are not accurate in patients wi th acute kidney failure, extremes of body mass or the acutely ill. http://[employer]/[facility]Enkf Specimen Anatomical Collection Method Collection Time Receive d Time (Source) Location / / Volume Laterality Blood specimen 04/18/2018 9:19 AM 018 9:34 (specimen) EDT AM EDT Resulting Agency Comment Spec In Lab Danette Maxwell APRN CHEMISTRY ORDERABLES Performing Organization Address City/State/ZIP [place] [address] (ABNORMAL) pro-Brain Natriuretic Peptide (04/18/2018 9:19 AM EDT) P athologist Signature ProBNP 2,199 (H) <=125 [facility] Specimen Anatomical Collection Method Collection Time Receive d Time (Source) Location / / Volume Laterality Blood specimen 04/18/2018 9:19 AM 018 9:34 (specimen) EDT AM EDT Resulting Agency Comment Spec In Lab Danette Maxwell APRN CHEMISTRY ORDERABLES Performing Organization Address City/State/ZIP [place] [address] documented in this encounter Visit Diagnoses Diagnosis Chronic systolic heart failure On amiodarone therapy Ischemic cardiomyopathy Other specified forms of chronic ischemi c heart disease ASCVD (arteriosclerotic cardiovascular d isease) Unspecified cardiovascular disease Chronic systolic heart failure documented in this encounter Care Teams Circular Ripsaw Operator Relationship Specialty Start Date End Date Lovely Vicente MD PCP - General 04/16/[address] [place] [address] documented as of this encounter
--- OUTSIDE RECORDS SUMMARY | 2022-04-22 08:18 | XMS_ITS | Encounter Summary ---
:1945 Author Organization [place] [address] Care Team Providers Name Role Phone Lovely Vicente MD Primary Care Provider Encounter Details Date Type Department Care Team Description 09/16/2017 Hospital [place] [address] Social History Tobacco Use Types Packs/Day [...] Zulma Dolan MD [facility] [place], [place] [address] (Wo rk) 05/28/2022 Laboratory Appointment Lab 05/28/2022 Office Visit Cardiology Zulma Dolan MD [facility] [place] [address] Liz Poole PA [facility] [place] [address] 06/10/2022 Office Visit Dermatology Laura Scherer MD [facility] DR [address] [place], [place] [address] (Wo rk) documented as of this encounter Procedures Procedure Name Priority Date/Time Associated Diagnosis Comme [facility] SURGICAL PATHOLOGY Routine 09/16/2017 7:28 AM Res ults for this REPORT EST procedure are i n the results section. documented in this encounter Results Surgical Pathology Report (09/16/2017 7:28 AM EST) Component Value Ref Test Analysis Performed At [facility] Method Time Signature Surgical [id number] ? Location: [facility] Pathology [place] Report The signing pathologist has (i) examined [...] Verified: ??09/24/2017 ?Pathologist Performed at: ??-[facility] Dept. of Pathology, [place], [place] CLINICAL INFORMATION Specimen Submitted: A - [...] Organization Address City/State/Z[place] [address] documented in this encounter Visit Diagnoses Not on filedocumented in this encounter Care Teams Search Director Relationship Specialty Start Date End Date oLvely Vicente MD PCP - General 04/16/[address] [place] [address] documented as of this encounter
--- OUTSIDE RECORDS SUMMARY | 2022-04-22 08:18 | XMS_ITS | Encounter Summary ---
:1945 [place] [address] Care Team Providers Name Role Phone Lovely Vicente MD Primary Care Provider Encounter Details Date Type Department Care Team Description 11/29/2017 Hospital Encounter Radiology Library at Estefany Maxwell Pain [facility] [employer] OPERATOR [facility] [place] [address] CARDIOLOGY [phone] [place], [place] [address] (Wo rk) Social History Tobacco [...] Dolan MD [facility] [place], [place] [address] (Wo rk) 05/28/2022 Laboratory Appointment Lab 05/28/2022 Office Visit Cardiology Zulma Dolan MD [facility] [place] [address] [facility] [place] [address] 06/10/2022 Office Visit Dermatology Laura Scherer MD [facility] DR [address] [place], [place] [address] (Wo rk) documented as of [...] Address City/State/ZIP Code Phon e Number [place], [place] documented in this encounter Visit Diagnoses Diagnosis Pain Generalized pain documented in this encounter Care Teams Gear Repairer Relationship Specialty Start Date End Date Lovely Vicente MD PCP - General 04/16/[address] [place] [address] documented as of this encounter
--- OUTSIDE RECORDS SUMMARY | 2022-04-22 08:18 | XMS_ITS | Encounter Summary ---
:1945 Author Organization [facility] [place] [address] Care Team Providers Name Role Phone Lovely Vicente MD Primary Care Provider Reason for Referral Diagnostic Test (Routine) - Closed Specialty Diagnoses / Procedures Referred By Contact Refer red To Contact Cardiology Diagnoses Ischemic cardiomyopathy Acute on chronic systolic congestive heart failure Danette Maxwell APRN [facility] Non-Inv Card Lab Procedures Echocardiogram Transthoracic(Leb) [facility] [place] [address] [place] [address] Referral ID Status Reason Start Date Expiration Date Visits V isits Requested Authorized [id number] Closed Specialty 08/30/2017 08/30/2018 1 1 Service Requested Encounter Details Date Type Department Care Team Description 08/26/2017 Office Visit Cardiology at [facility] Danette Maxwell Ischemic cardiomyopathy; [facility] STACIE Gomes Acute on chronic systolic congestive hea rt failure ; Drive 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 [...] Cardiology Zulma Dolan MD [facility] [place], [place] [address] (Wo rk) 05/28/2022 Laboratory Appointment Lab 05/28/2022 Office Visit Cardiology Zulma Dolan [place] [facility] [place] [address] Liz Poole PA [facility] [place] [address] 06/10/2022 Office Visit Dermatology Laura Scherer MD [facility] DR [address] [place], [place] [address] (Wo rk) documented as of this encounter Results ECHOCARDIOGRAM COMPLETE W CONTRAST (10/07/2017 10:23 AM EDT) athologist Signature EF 45 [facility] Anatomical Region Laterality Modality Other Specimen (Source) Anatomical Location Collection Method / Collectio n Time Received Time / Laterality Volume 10/07/2017 Narrative 10/07/2017 11:13 AM EDT Procedure: ?Transthoracic Echocardiogram Patient: ?NATALYA Mccollum ? (Age): 1945(72y) Med Rec#: ? [id number] ?Sex: ?M ? Site Loc: ? [facility] ?Ht / Wt: ??173(cm)/82(kg) Pt. Loc: ?Echo Lab ?BSA: ?1.96 Study Date: ?? 10/07/2017 ?Pt. Type: Outpatient Tape: ? Referring: Danette Maxwell Reading: Iker Cuevas ([id number]) Manager Language: Yonathan Bocanegra Diagnosis: *ICD-10-PCS Ischemic cardiomyopathy (I2 [...] E-wave Vmax ?1.2 ?m/sec ? MV deceleration [id number] ?msec ? MV A-wave Vmax ?1 ?m/sec [...] ? Mid-Inferior ?Hypokinetic ? Mid-Inferoseptal ?Hypokinetic ? [place]-Septal ? Akinetic ? [place]-Anterior ? Hypokinetic ? [place]-Lateral ?Hypokinetic ? [place]-Inferior ? Hypokinetic ? [place]-Tip ?Akinetic ? This report has been electronically sign ed by: _ Iker Cuevas M.D. ? 10/07/2017 11:12:34 Images reviewed and interpretation [facility] Cardiac Ultrasound Laboratory Procedure Note Iker Cuevas MD - 10/07/2017Formatti ng of this note might be different from the original. Procedure: Transthoracic Echocardiogram Patient: NATALYA Mccollum (Age): [birth year]72y) Med Rec#: [id number] Sex: M Site Loc: [facility] Ht / Wt: 173(cm)/82(kg) Pt. Loc: Echo Lab BSA: 1.96 Study Date: 10/07/2017 Pt. Type: Outpati ent Tape: Referring: Danette Maxwell Reading: Iker Cuevas ([id number]) Manager Language: Yonathan Bocanegra Diagnosis: *ICD-10-PCS Ischemic cardiomyopathy (I2 [...] MV E-wave Vmax 1.2 m/sec MV deceleration [id number] msec MV A-wave Vmax 1 m/sec MV [...] Akinetic Mid-Posterolateral Hypokinetic Mid-Inferior Hypokinetic Mid-Inferoseptal Hypokinetic [place]-Septal Akinetic [place]-Anterior Hypokinetic [place]-Lateral Hypokinetic [place]-Inferior Hypokinetic [place]-Tip Akinetic This report has been electronically sign ed by: _ Iker Cuevas M.D. 10/07/2017 11:12 :34 Images reviewed and interpretation [facility] Card[facility] Laboratory Danette Maxwell APRN ECHO ORDERABLES Basic Metabolic Panel (non-fasting) (08/26/2017 2:00 PM EST) P athologist Signature Glucose Lvl 98 65 - 199 [facility] mg/dL [facility] Comment: Diabetes: >=200 mg/dL plus symp toms BUN 20 10 - 20 mg/dL [facility] Creatinine 1.17 0.80 - 1.50 mg/dL [facility] Sodium 140 135 - 145 mmol/L [facility] Potassium 4.8 3.5 - 5.0 mmol/L [facility] [...] 15 mmol/L [facility] Calcium 9.1 8.5 - 10.5 mg/dL [facility] Estimated GFR >60 >=60 [facility] Comment: The reported eGFR should be multiplied b y 1.2 for patients. The MDRD is not an appropriate measure o f renal function for patients with body mass extremes or in patients with acute kidney failure. http://[employer]/DHnkdep http://[employer]/DHMCnkf Specimen Anatomical Collection Method Collection Time Receive d Time (Source) Location / / Volume Laterality Blood specimen 08/26/2017 2:00 PM 018 2:15 (specimen) EST PM EST Resulting Agency Comment Spec In Lab Danette Maxwell APRN CHEMISTRY ORDERABLES Performing Organization Address City/State/ZIP Code Phon e Number [address] (ABNORMAL) pro-Brain Natriuretic Peptide (08/26/2017 2:00 PM EST) P athologist Signature ProBNP 2,373 (H) <=125 [facility]AN pg/mL [facility] Specimen Anatomical Collection Method Collection Time Receive d Time (Source) Location / / Volume Laterality Blood specimen 08/26/2017 2:00 PM 018 2:15 (specimen) EST PM EST Resulting Agency Comment Spec In Lab Danette Maxwell APRN CHEMISTRY ORDERABLES Performing Organization Address City/State/ZIP [place] [address] documented in this encounter [...] failure documented in this encounter Care Teams Academic Affairs Vice President Relationship Specialty Start Date End Date Lovely Vicente MD PCP - General 04/16/[address] [place] [address] documented as of this encounter
--- OUTSIDE RECORDS SUMMARY | 2022-04-22 08:18 | XMS_ITS | Encounter Summary ---
:1945 Author Organization [place] [address] Care Team Providers Name Role Phone Lovely Vicente MD Primary Care Provider Reason for Visit Reason Comments Follow-up I'm having trouble with the VAC Encounter Details Date Type Department Care Team Description 08/26/2017 Office Visit Vascular Surgery at [facility], STEPHANIE Mercado Atheroembolism of foot, right; [facility] [address] Delayed surgical wound healing, initial encounter; [facility] VASCULAR SURG YEHUDA Acute on chronic systolic congestive hea rt failure ; [place], [place] [phone] [phone] Social History Tobacco Use Types Packs/Day Years [...] home and into the care of the [facility]. However, since discharge from [facility] he has had some difficulty with continuation [...] SETUP performed by Manny Mcknight MD at [facility] MAIN OR ??? PRO AMPUTATION FOOT, TRANSMETATARSAL Right 08/09/2017 AMPUTATION, TRANSMETATARSAL (WRVU 12.71) performed by Yonathan Smith MD at [facility] MAIN OR ??? PRO CABG, ARTERIAL, SINGLE N/A 07/07/2017 @CABG, USING ARTERIAL GRAFT;SINGLE ARTERIAL GRAFT (WRVU 33.75) performed by Yuan Retana MD at [facility] MAIN OR ??? PRO CABG, ARTERY-VEIN, TWO N/A 07/07/2017 @CABG, TWO VENOUS GRAFTS & ARTERIAL GRAFT (WRVU 7.93) performed by Yuan Retana MD at [facility] MAIN OR ??? PRO COLONOSCOPY, REMV LESN, SNARE 01/16/2014 COLONOSCOPY, POLYPECTOMY, REMOVAL LESION BY SNARE performed by Nohemi Jaimes MD at [facility] ENDOSCOPY ??? PRO DRESSING CHANGE UNDER ANESTHESIA Right 08/11/2017 (MSURG) DRESSING CHANGE (FOR OTHER THAN IVAN) UNDER ANES. (WRVU 0.86) performed by Lamar Smith MD at [facility] MAIN OR ??? PRO ENDOSCOPY W/VIDEO-ASST VEIN HARVEST, CABG Right 07/07/2017 ENDOSCOPIC HARVEST VEIN(S) FOR CABG (WRVU 0.31) performed by Yuan Retana MD at [facility] MAIN OR ??? PRO THYROIDECTOMY 03/28/2013 THYROIDECTOMY, TOTAL OR COMPLETE performed by Manny Mcknight MD at [facility] MAIN OR Social Hx: Social History [...] Zulma Dolan MD [facility] [place], [place] [address] (Wo rk) 05/28/2022 Laboratory Appointment Lab 05/28/2022 Office Visit Cardiology Zulma Dolan MD [facility] [place] [address] Liz Poole PA [facility] [place] [address] 06/10/2022 Office Visit Dermatology Laura Scherer MD [facility] [address] [place], [place] [address] (Wo rk) documented as of [...] Department: Vascular Surgery Lab VASCUBASE Report Patient: [id number] (GREGORY FATIMA) CPT: 58332 ICD10: T81.89XA;I75.021 Referring Physician: ARIK CLEMENT ?? [...] Lvl 98 65 - 199 [facility] mg/dL [facility] [...] [facility] Estimated GFR >60 >=60 [facility] Comment: The reported eGFR should be multiplied b y 1.2 for patients. The MDRD is not an appropriate measure o f renal function for patients with body mass extremes or in patients with acute kidney failure. http://[employer]/DHnkdep http://[employer]/DHMCnkf Specimen Anatomical Collection Method Collection Time Receive d Time (Source) Location / / Volume Laterality Blood specimen 08/26/2017 2:00 PM 018 2:15 (specimen) EST PM EST Resulting Agency Comment Spec In Lab Danette Maxwell LITHOGRAPH PRESS FEEDER CHEMISTRY ORDERABLES Performing Organization Address City/[facility]/ZIP Code Phon e Number [address] (ABNORMAL) pro-Brain Natriuretic Peptide (08/26/2017 2:00 PM EST) P athologist Signature ProBNP 2,373 (H) <=125 [facility] pg/mL [facility] Specimen Anatomical Collection Method Collection Time Receive d Time (Source) Location / / Volume Laterality Blood specimen 08/26/2017 2:00 PM 018 2:15 (specimen) EST PM EST Resulting Agency Comment Spec In Lab Danette A Bradford STACIE CHEMISTRY ORDERABLES Performing Organization Address City/[facility] [place] [address] documented in this encounter Visit Diagnoses Diagnosis Atheroembolism of foot, right Delayed surgical wound healing, initial encounter Acute on chronic systolic congestive hea rt failure Acute on chronic systolic heart failure Ischemic cardiomyopathy Other specified forms of chronic ischemi c heart disease documented in this encounter Care Teams Refrigerated National Truck Driver Relationship Specialty Start Date End Date Lovely Vicente MD PCP - General 04/16/[address] [place] [address] documented as of this encounter
--- OUTSIDE RECORDS SUMMARY | 2022-04-22 08:18 | XMS_ITS | Encounter Summary ---
:1945 Author Organization [facility] [place] [address] Care Team Providers Name Role Phone Lovely Vicente MD Primary Care Provider Reason for Referral Consultation (Routine) - Specialty Diagnoses / Procedures Referred By Contact Refer red To Contact Wound Healing Center Diagnoses Atheroembolism of foot, right Delayed surgical wound healing, subsequent encounter Aurelia Rivera PA [address] [facility] [place] [address] Referral ID Status Reason Start Date Expiration Date Visits V isits Requested Authorized [id number] Consult, 09/08/2017 03/07/2018 1 1 Test & Treat Reason for Visit Reason Comments Wound Check My foot hurts Encounter Details Date Type Department Care Team Description 09/07/2017 Office Visit Vascular Surgery at MiguelAurelia PA Atheroembolism of foot, right; [facility] [address] [facility] Delayed surgical wound healing, subseque nt encounter [facility] [place] [address] [phone] Social History Tobacco Use Types Packs/Day Years [...] at home for VAC dressing changes from [facility]. Since his last visit his [...] SETUP performed by Manny Mcknight MD at [facility] MAIN OR ??? PRO AMPUTATION FOOT, TRANSMETATARSAL Right 08/09/2017 AMPUTATION, TRANSMETATARSAL (WRVU 12.71) performed by Yonathan Smith MD at [facility] MAIN OR ??? PRO CABG, ARTERIAL, SINGLE N/A 07/07/2017 @CABG, USING ARTERIAL GRAFT;SINGLE ARTERIAL GRAFT (WRVU 33.75) performed by Yuan Retana MD at [facility] MAIN OR ??? PRO CABG, ARTERY-VEIN, TWO N/A 07/07/2017 @CABG, TWO VENOUS GRAFTS & ARTERIAL GRAFT (WRVU 7.93) performed by Yuan Retana MD at [facility] MAIN OR ??? PRO COLONOSCOPY, REMV LESN, SNARE 01/16/2014 COLONOSCOPY, POLYPECTOMY, REMOVAL LESION BY SNARE performed by Nohemi Jaimes MD at [facility] ENDOSCOPY ??? PRO DRESSING CHANGE UNDER ANESTHESIA Right 08/11/2017 (MSURG) DRESSING CHANGE (FOR OTHER THAN IVAN) UNDER ANES. (WRVU 0.86) performed by Lamar Smith MD at [facility] MAIN OR ??? PRO ENDOSCOPY W/VIDEO-ASST VEIN HARVEST, CABG Right 07/07/2017 ENDOSCOPIC HARVEST VEIN(S) FOR CABG (WRVU 0.31) performed by Yuan Retana MD at [facility] MAIN OR ??? PRO THYROIDECTOMY 03/28/2013 THYROIDECTOMY, TOTAL OR COMPLETE performed by Manny Mcknight MD at [facility] OR Social Hx: Social [...] Cardiology Zulma Dolan MD [facility] [place], [place] [address] (Wo rk) 05/28/2022 Laboratory Appointment Lab 05/28/2022 Office Visit Cardiology Zulma Dolan MD [facility] [place] [address] Liz Poole PA [facility] [place] [address] 06/10/2022 Office Visit Dermatology Laura Scherer MD [facility] [address] [place], [place] [address] (Wo rk) Scheduled Referrals Name Type Priority Associated Diagnoses Order S chedule Referral to Wound Outpatient Referral Routine Atheroembolism o f foot, Ordered: Clinic right 09/08/2017 Delayed surgical wound healing, subsequent encounter documented as of this encounter Visit Diagnoses Diagnosis Atheroembolism of foot, right Delayed surgical wound healing, subseque nt encounter documented in this encounter Care Teams Actuarial Clerk Relationship Specialty Start Date End Date Lovely Vicente MD PCP - General 04/16/[address] [facility] [place] [address] documented as of this encounter
--- OUTSIDE RECORDS SUMMARY | 2022-04-22 08:18 | XMS_ITS | Encounter Summary ---
:1945 Author Organization [facility] [place] [address] Care Team Providers Name Role Phone Lovely Vicente MD Primary Care Provider Encounter Details Date Type Department Care Team Description 08/25/2017 Telephone Pain Management at [place], [place] [address] Social History Tobacco Use Types Packs/Day [...] Management Center Preauthorization Request Patient: Don Fatima [id number] Fax received from [employer] denying prior authorization for Lidocaine Patches prescribed by Barbra Soares APRN. RX insurance plan: [employer] insurance telephone: [phone] Patient Diagnosis: right foot pain secondary to PVD and ischemia ? Previous medications attempted: Tylenol, Tramadol, Dilaudid Authorization/Reference number: [id number] _x_ denied, provider and patient informed _x_ appeal initiated by provider, patient informed Angeles Rodrigez, RN documented in this encounter Plan of Treatment Upcoming Encounters Date Type Specialty Care Team Description 05/28/2022 Appointment Cardiology Zulma Dolan MD [facility] [place], [place] [address] (Wo rk) 05/28/2022 Laboratory Appointment Lab 05/28/2022 Office Visit Cardiology Zulma Dolan MD [facility] [place] [address] Liz Poole PA [facility] [place] [address] 06/10/2022 Office Visit Dermatology Laura Scherer MD [facility] [address] [place], [place] [address] (Wo rk) documented as of this encounter Visit Diagnoses Not on filedocumented in this encounter Care Teams Outside Sales Representative Relationship Specialty Start Date End Date Lovely Vicente MD PCP - General 04/16/[address] [place] [address] documented as of this encounter
--- OUTSIDE RECORDS SUMMARY | 2022-04-22 08:18 | XMS_ITS | Encounter Summary ---
:1945 Author Organization [facility] [place] [address] Care Team Providers Name Role Phone Lovely Vicente MD Primary Care Provider Encounter Details Date Type Department Care Team Description 09/03/2017 Telephone Vascular Surgery at [facility] Ninfa Clark, [place] [address] Social History Tobacco Use Types Packs/Day [...] help with the discomfort of the change. Biomedical Manager told the [facility] that I would [...] Zulma Dolan MD [facility] [place], [place] [address] (Wo rk) 05/28/2022 Laboratory Appointment Lab 05/28/2022 Office Visit Cardiology Zulma Dolan MD [facility] [place] [address] Liz Poole PA [facility] [place] [address] 06/10/2022 Office Visit Dermatology Laura Scherer MD [facility] [address] [place], [place] [address] (Wo rk) documented as of this encounter Visit Diagnoses Not on filedocumented in this encounter Care Teams Residential Service Technician Relationship Specialty Start Date End Date Lovely Vicente MD PCP - General 04/16/[address] [place] [address] [address] [facility] [place] [address] documented as of this encounter
--- OUTSIDE RECORDS SUMMARY | 2022-04-22 08:18 | XMS_ITS | Encounter Summary ---
:1945 Author Organization [place] [address] Care Team Providers Name Role Phone Lovely Vicente MD Primary Care Provider Reason for Visit Reason Comments Follow-up Skin Check Encounter Details Date Type Department Care Team Description 01/06/2018 Office Visit Dermatology at Rigoberto Formantipmirna nevi; Abdelrahman HOOPER MD History of melanoma; [address] [facility] [place] [address] [facility] [place], [place] [address] Social History Tobacco Use [...] encounter. Rigoberto Garcia MD Section of Dermatology [facility] documented in this encounter Plan of Treatment Upcoming Encounters Date Type Specialty Care Team Description 05/28/2022 Appointment Cardiology Zulma Dolan MD [facility] [address] [place], [place] [address] (Wo rk) 05/28/2022 Laboratory Appointment Lab 05/28/2022 Office Visit Cardiology Zulma Dolan MD [facility] [place] [address] Liz Poole PA [facility] [place] [address] 06/10/2022 Office Visit Dermatology Laura Scherer MD [facility] [address]MAT [place], [place] [address] (Wo rk) documented as of this encounter Visit Diagnoses Diagnosis Multiple nevi Benign neoplasm of skin, site unspecifie d History of melanoma Personal history of malignant melanoma o f skin Seborrheic keratosis Other seborrheic keratosis documented in this encounter Care Teams Cottonseed Meat Presser Relationship Specialty Start Date End Date Lovely Vicente MD PCP - General 04/16/[address] [place] [address] documented as of this encounter
--- OUTSIDE RECORDS SUMMARY | 2022-04-22 08:18 | XMS_ITS | Encounter Summary ---
:1945 Author Organization [facility] [address] Care Team Providers Name Role Phone Lovely Vicente MD Primary Care Provider Reason for Visit Reason Onset Date Comments Follow-up 07/13/2018 amiodarone discontin ued Encounter Details Date Type Department Care Team Description 07/13/2018 Telephone Cardiology at [facility] Martha Comer, Follow-up (amiodarone [facility] RN discontin ued) [place] [address] Social History Tobacco Use Types Packs/Day [...] RN - 07/13/2018 8:57 AM EST Per BICYCLE II ASSEMBLER Hans call placed to the home number [...] placed to the [facility] in [place] to discontinue it there as well. Med list updated. documented in this encounter Plan of Treatment Upcoming Encounters Date Type Specialty Care Team Description 05/28/2022 Appointment Cardiology Zulma Dolan MD [facility] [address] [place], [place] [address] (Wo rk) 05/28/2022 Laboratory Appointment Lab 05/28/2022 Office Visit Cardiology Zulma Dolan MD [facility] [place] [address] Liz Poole PA [facility] [place] [address] 06/10/2022 Office Visit Dermatology Laura Scherer MD [facility] [address] [place], [place] [address] (Wo rk) documented as of this encounter Visit Diagnoses Not on filedocumented in this encounter Care Teams Well Control Instructor Relationship Specialty Start Date End Date Lovely Vicente MD PCP - General 04/16/[address] [place] [address] documented as of this encounter
--- OUTSIDE RECORDS SUMMARY | 2022-04-22 08:18 | XMS_ITS | Encounter Summary ---
:1945 Author Organization [facility] [place] [address] Care Team Providers Name Role Phone Lovely Vicente MD Primary Care Provider Reason for Visit Reason Onset Date Comments VNA Calls 08/30/2017 Encounter Details Date Type Department Care Team Description 08/30/2017 Telephone Vascular Surgery at [facility] Cora Reid RN [facility] Calls [facility] [place] [address] Social History Tobacco Use Types Packs/Day [...] Caller: Alfonso at [facility] [phone] Reason for call: Changing his wound vac [...] who had been in contact with [facility]'s Wound Care Nurse who advised him to [...] Zulma Dolan MD [facility] [address] [place], [place] [address] (Wo rk) 05/28/2022 Laboratory Appointment Lab 05/28/2022 Office Visit Cardiology Zulma Dolan MD [facility] [place] [address] Liz Poole PA [facility] [place] [address] 06/10/2022 Office Visit Dermatology Laura Scherer MD [facility] [address]MAT OGY [place], [place] [address] (Wo rk) documented as of this encounter Visit Diagnoses Not on filedocumented in this encounter Care Teams Rug Dry Room Attendant Relationship Specialty Start Date End Date Lovely Vicente MD PCP - General 04/16/[address] [place] [address] documented as of this encounter
--- OUTSIDE RECORDS SUMMARY | 2022-04-22 08:18 | XMS_ITS | Encounter Summary ---
:1945 Author Organization [facility] [place] [address] Care Team Providers Name Role Phone Lovely Vicente MD Primary Care Provider Encounter Details Date Type Department Care Team Description 08/19/2017 Office Visit Vascular Surgery at [place], PAD (peripheral artery [facility] HEEL LINING PASTER disease) [facility] [address] [place], [place] VASCULAR SURGERY [address] [place] [address] [phone] Social History Tobacco Use Types Packs/Day Years [...] Zulma Dolan MD [facility] [place], [place] [address] (Wo rk) 05/28/2022 Laboratory Appointment Lab 05/28/2022 Office Visit Cardiology Zulma Dolan MD [facility] [place] [address] Liz Poole PA [facility] [place] [address] 06/10/2022 Office Visit Dermatology Laura Scherer MD [facility] [address] [place], [place] [address] (Wo rk) documented as of this encounter Visit Diagnoses Diagnosis PAD (peripheral artery disease) Peripheral vascular disease, unspecified documented in this encounter Care Teams Linux Network Engineer Relationship Specialty Start Date End Date Lovely Vicente MD PCP - General 04/16/[address] [place] [address] documented as of this encounter
--- OUTSIDE RECORDS SUMMARY | 2022-04-22 08:18 | XMS_ITS | Encounter Summary ---
:1945 Author Organization [facility] [place] [address] Care Team Providers Name Role Phone Lovely Vicente MD Primary Care Provider Encounter Details Date Type Department Care Team Description 11/29/2017 Hospital Encounter Vascular Lab at Janett Walter PAD (peripheral [facility], [place]T artery [facility] [place] [phone] Social History Tobacco Use Types Packs/Day Years [...] Zulma Dolan MD [facility] [address] [place], [place] [address] (Wo rk) 05/28/2022 Laboratory Appointment Lab 05/28/2022 Office Visit Cardiology Zulma Dolan MD [facility] [place] [address] Liz Poole PA [facility] [place] [address] 06/10/2022 Office Visit Dermatology Laura Scherer MD [facility] [address] [place], [place] [address] (Wo rk) documented as [...] At [facility] Range Method Time Signature VB Text Department: Vascular Surgery Lab VASCUBASE Report Patient: [id number] (DON HOANG) CPT: 58388 ICD10: I72.4;I73.9 Referring Physician: DANETTE MAXWELL ?? [...] unspecified documented in this encounter Care Teams Impact Retail Service Merchandiser Relationship Specialty Start Date End Date Lovely Vicente MD PCP - General 04/16/[address] [place], [place] [address]Y [facility] [place] [address] documented as of this encounter
--- OUTSIDE RECORDS SUMMARY | 2022-04-22 08:18 | XMS_ITS | Encounter Summary ---
:1945 Author Organization [facility] [place] [address] Care Team Providers Name Role Phone Lovely Vicente MD Primary Care Provider Encounter Details Date Type Department Care Team Description 10/05/2017 Unscheduled Cardiology at [facility] RONNIE Sin PATIENT NOT SEEN Encounter [facility] Tamiko Martinez MD [facility] [address] CARDIOLOGY DEPT [phone] [place] [address] Social History Tobacco Use Types Packs/Day Years [...] Dolan MD [facility] [address] [place], [place] [address] (Wo rk) 05/28/2022 Laboratory Appointment Lab 05/28/2022 Office Visit Cardiology Zulma Dolan [place] [address] Liz Poole PA [facility] [place] [address] 06/10/2022 Office Visit Dermatology Laura Scherer MD [facility] [address] [place], [place] [address] (Wo rk) documented as of this encounter Visit Diagnoses Diagnosis DH PATIENT NOT SEEN documented in this encounter Care Teams Hydraulic Operator Relationship Specialty Start Date End Date Lovely Vicente MD PCP - General 04/16/[address] [place] [address] documented as of this encounter
--- OUTSIDE RECORDS SUMMARY | 2022-04-22 08:18 | XMS_ITS | Encounter Summary ---
:1945 Author Organization [facility] [address] Care Team Providers Name Role Phone Lovely Vicente MD Primary Care Provider Encounter Details Date Type Department Care Team Description 08/30/2017 [facility] lower limb [facility] ischemia [facility] [address] [place], [place] VASCULAR SURGERY [address] [place] [address] [phone] Social History Tobacco Use Types Packs/Day Years [...] Smith MD - 08/30/2017 2:00 PM EST [facility] staff: Patient returns. He is doing [...] MD [facility] Dr [place], [place] [address] (Wo rk) 05/28/2022 Laboratory Appointment Lab 05/28/2022 Office Visit Cardiology Zulma Dolan MD [facility] [place] [address] Liz Poole PA [facility] [place] [address] 06/10/2022 Office Visit Dermatology Laura Scherer MD [facility] [address] [place], [place] [address] (Wo rk) documented as of this encounter Visit Diagnoses Diagnosis Critical lower limb ischemia Unspecified circulatory system disorder documented in this encounter Care Teams Prepress Manager Relationship Specialty Start Date End Date Lovely Vicente MD PCP - General 04/16/[address] [place] [address] documented as of this encounter
--- OUTSIDE RECORDS SUMMARY | 2022-04-22 08:18 | XMS_ITS | Encounter Summary ---
:1945 Author Organization [facility] [place] [address] Care Team Providers Name Role Phone Lovely Vicente MD Primary Care Provider Encounter Details Date Type Department Care Team Description 09/06/2017 Telephone Vascular Surgery at [facility] Ninfa Clark, [place] [address] Social History Tobacco Use Types Packs/Day [...] Zulma Dolan MD [facility] [place], [place] [address] (Wo rk) 05/28/2022 Laboratory Appointment Lab 05/28/2022 Office Visit Cardiology Zulma Dolan MD [facility] [place] [address] Liz Poole PA [facility] [place] [address] 06/10/2022 Office Visit Dermatology Laura Scherer MD [facility] DR [address] [place], [place] [address] (Wo rk) documented as of this encounter Visit Diagnoses Not on filedocumented in this encounter Care Teams Senior Actuarial Analyst Relationship Specialty Start Date End Date Lovely Vicente MD PCP - General 04/16/[address] [place] [address] documented as of this encounter
--- OUTSIDE RECORDS SUMMARY | 2022-04-22 08:18 | XMS_ITS | Encounter Summary ---
:1945 Author Organization [facility] [place] [address] Care Team Providers Name Role Phone Lovely Vicente MD Primary Care Provider Encounter Details Date Type Department Care Team Description 09/06/2017 Orders Only [facility] at [facility]infa Clark, [facility] [place] [id number] Social History Tobacco Use Types Packs/Day [...] Dolan MD [facility] [place] [address] [place] [address] (Wo rk) 05/28/2022 Laboratory Appointment Lab 05/28/2022 Office Visit Cardiology Zulma oDlan [place] [facility] [place] [address] Liz Poole PA [facility] [place] [address] 06/10/2022 Office Visit Dermatology Laura Scherer MD [facility] [address] [place], [place] [address] (Wo rk) documented as of this encounter Visit Diagnoses Not on filedocumented in this encounter Care Teams Mirror Machine Feeder Relationship Specialty Start Date End Date Lovely Vicente MD PCP - General 04/16/[address] [place] [address] documented as of this encounter
--- OUTSIDE RECORDS SUMMARY | 2022-04-22 08:19 | XMS_ITS | Encounter Summary ---
:1945 [place] [address] Care Team Providers Name Role Phone Lovely Vicente MD Primary Care Provider Reason for Visit Auth/Cert Specialty Diagnoses / Procedures Referred By Contact Refer red To Contact Diagnoses Critical lower limb ischemia CELLULITIS RT FOOT Procedures EMERGENCY Referral ID Status Reason Start Date Expiration Date Visits Requ ested Visits Authorized [id number] 1 1 Encounter Details Date Type Department Care Team Description 08/06/2017 - Hospital Encounter 5 Yonathan Oneill lower limb ischemia; 08/16/2017 Su Flores MD Ischemic foot Hospital [facility] DR S[address]iqui [place] [phone] Social History Tobacco Use Types Packs/Day Years [...] Discharge date and time: 08/16/2017 Attending Physician: Yontahan Smith MD Discharge Diagnoses (Hospital Problems) and [...] 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 Patient [...] Dorsalis Pedis (Ankle) Artery ?132 ? 0.94 ??Huron-Biphasic ? Posterior Tibial (Ankle) Artery ??154 ? 1.10 ??Huron-Biphasic ? Fourth Toe ? 67 ?0.48 ?? [...] the foot. Discharge Conditions/Prognosis: Good Discharge to: [facility] Rehab Discharge Medications: Your Medications [...] For any problems or questions please call [phone] ZELDA Smith, strip winder Nurse Clinician For issues on weeknights after 5pm and weekends please call [phone] and ask for the Vascular Fellow occupational therapy department chair. General Instructions None Future Appointments and Orders Future Appointments Provider Department Dept Phone 08/26/2017 4:00 PM Aurelia Rivera PA V[facility] Surgery [facility] [place] [phone] 09/07/2017 3:00 PM LAB, THREE L Lab 3L [facility] [phone] 09/07/2017 4:00 PM Luz Prescott MD Endocrinology at [place] [phone] 09/09/2017 8:00 AM Barbra Soares APRN Pain Management [facility] [place] [phone] Please bring a list of your current [...] For any problems or questions please call [phone] ZELDA Smith, strip winder Nurse Clinician For issues on weeknights after 5pm and weekends please call [phone] and ask for the Vascular Fellow occupational therapy department chair. documented in this encounter Medications at Time [...] Patient Destination: [facility] ([facility]) [address] [place] [address] Transportation: with (at bedside) Time of Discharge: by 12 noon Level of Care: swing Patient Aware: yes Family Notified: yes Md to call report to: Yissel Quintero REPEAT CHIEF already called RN to call report to: [phone] Shirin Wolf Office of Care Management Pager [phone] Shirin Wolf RN - 08/16/2017 10:50 AM EST [facility] has offered pt swing bed. Pt and accept bed. will transport via car. REPEAT CHIEF Yissel Quintero aware; d/c paperwork will be completed by 12 noon. [facility] requests pt arrival by 1400 today; REPEAT CHIEF, RN, and family aware. REPEAT CHIEF called [facility] and was told that they prefer pt to arrive with wound vac dressing applied but clamped. REPEAT CHIEF applied new wound vac dressing. RN has [facility] number to call report. PASSR completed; REPEAT CHIEF paged to request provider signature in highlighted space. Indigo from [facility] notified via email that home wound vac now cancelled; STOR[facility] has picked up from room and order cancelled. Packet started and provided to refinery operator reforming unit. Medicare important message explained to patient, patient signed. Copy provided to patient and signature page to OCM for inclusion in pt EMR. Radha Georges - 08/16/2017 10:34 AM EST Office of Care Management/Newspaper Copy Editor Patient Name: Gregory Hoang : 1945 Patient has been offered a swing bed at [facility]. The patient will be transported by private transportation. No MD to MD report necessary Please call Nursing Report to [phone], ask for health specialist. Info to accompany patient: Narcotic Prescriptions Copies of Medication Administration Records and IV sheets for past 10 days. Plan: Newspaper Copy Editor will be available to the patient and Purchase Order Checker-RN and/or Director Sales And Trade Marketing for further assistance. Patient will be discharged to: [place] [phone] Radha Powers, Newspaper Copy Editor Mira Black, VAMSI - 08/15/2017 10:05 PM EST [address] Flores to ask if he wanted to hold metoprolol dose. BP 95/58. OK to hold this dose Courtney Brito - 08/15/2017 3:26 PM EST Office of Care Management(OCM)/Newspaper Copy Editor(RS)/ D/C Planning re : Patient is medically ready for d/c today. RS has been in contact with [facility] to see if they could offer a bed. [facility] is still reviewing the case and need their MD to review chart prior to accepting or declining. OCM team needs to check in with [facility] tomorrow to check on status. 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 Vac in place. Rehab [...] about patient's referral to: [facility] PHONE: [phone] FAX: [phone] CM spoke with RS who said that [...] rehab. Await recommendations from PT. Covering pager #[phone]. 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 Managing Partner Digital Content Marketing [place] Kaitlin Saha, RN Pager #[phone] Payam Rosales - 08/13/2017 2:37 PM EST Water Purification Chemist Encounter Note Patient Name: Gregory Hoang : [id number] MR#: [id number] Admit Date: 08/06/2017 1:41 PM Hospital Day 7 days Narrative: Visited to introduce and assess acceptance of Water Purification Chemist services. Pt was awake, alert, oriented and in chair and family was there. Assessment:Patient coping positively with stresses of illness/hospitalization at this time. Pt says that he is hoping to get better and his family was there. Pt says that he has family care and supportand taking one day at time. Intervention and Outcome: Provided emotional support and encouraging presence. 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 A letter describing our affiliations was reviewed with them and theywere educated about their right to choose where referrals are placed. Patient requests referral to [facility] [employer]. PHONE: [phone] FAX: [phone]. And Home NPWT (Negative Pressure Wound Therapy) aka wound vac device made available to pt. Serial # confirmed. Reviewed [facility] Proof of Delivery/Assignment of Benefits Statement(POD/AOB) Form w patient or authorized agent signing on behalf of patient. Copy of POD/AOB provided to pt and other copy faxed to [employer] @ fax# [phone] Expected date of discharge: 08/12/2017. 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 Address: [address] [place] [address] [place] [address] (home) Mobile: Telephone Information: Referring Provider: No [...] SETUP performed by Manny Mcknight MD at [facility] MAIN OR ??? PRO CABG, ARTERIAL, SINGLE N/A 07/07/2017 @CABG, USING ARTERIAL GRAFT;SINGLE ARTERIAL GRAFT (WRVU 33.75) performed by Yuan Retana MD at [facility] MAIN OR ??? PRO CABG, ARTERY-VEIN, TWO N/A 07/07/2017 @CABG, TWO VENOUS GRAFTS & ARTERIAL GRAFT (WRVU 7.93) performed by Yuan Retana MD at [facility] MAIN OR ??? PRO COLONOSCOPY, REMV LESN, SNARE 01/16/2014 COLONOSCOPY, POLYPECTOMY, REMOVAL LESION BY SNARE performed by Nohemi Jaimes MD at [facility] ENDOSCOPY ??? PRO ENDOSCOPY W/VIDEO-ASST VEIN HARVEST, CABG Right 07/07/2017 ENDOSCOPIC HARVEST VEIN(S) FOR CABG (WRVU 0.31) performed by Yuan Retana MD at [facility] MAIN OR ??? 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 Heparin gtt continues to run. [...] : 1945 AGE 72 y.o. Address: [address] [place] [address] [place] [address] (home) Mobile: Telephone Information: Referring Provider: No [...] SETUP performed by Manny Mcknight MD at [facility] MAIN OR ??? PRO CABG, ARTERIAL, SINGLE N/A 07/07/2017 @CABG, USING ARTERIAL GRAFT;SINGLE ARTERIAL GRAFT (WRVU 33.75) performed by Yuan Retana MD at [facility] MAIN OR ??? PRO CABG, ARTERY-VEIN, TWO N/A 07/07/2017 @CABG, TWO VENOUS GRAFTS & ARTERIAL GRAFT (WRVU 7.93) performed by Yuan Retana MD at [facility] MAIN OR ??? PRO COLONOSCOPY, REMV LESN, SNARE 01/16/2014 COLONOSCOPY, POLYPECTOMY, REMOVAL LESION BY SNARE performed by Nohemi Jaimes MD at [facility] ENDOSCOPY ??? PRO ENDOSCOPY W/VIDEO-ASST VEIN HARVEST, CABG Right 07/07/2017 ENDOSCOPIC HARVEST VEIN(S) FOR CABG (WRVU 0.31) performed by Yuan Retana MD at [facility] MAIN OR ??? 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 Vascular resident occupational therapy department chair and will forward result to the team prior to rounds. 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 Patient [...] SETUP performed by Manny Mcknight MD at [facility] MAIN OR ??? PRO CABG, ARTERIAL, SINGLE N/A 07/07/2017 @CABG, USING ARTERIAL GRAFT;SINGLE ARTERIAL GRAFT (WRVU 33.75) performed by Yuan Retana MD at [facility] MAIN OR ??? PRO CABG, ARTERY-VEIN, TWO N/A 07/07/2017 @CABG, TWO VENOUS GRAFTS & ARTERIAL GRAFT (WRVU 7.93) performed by Yuan Retana MD at [facility] MAIN OR ??? PRO COLONOSCOPY, REMV LESN, SNARE 01/16/2014 COLONOSCOPY, POLYPECTOMY, REMOVAL LESION BY SNARE performed by Nohemi Jaimes MD at [facility] ENDOSCOPY ??? PRO ENDOSCOPY W/VIDEO-ASST VEIN HARVEST, CABG Right 07/07/2017 ENDOSCOPIC HARVEST VEIN(S) FOR CABG (WRVU 0.31) performed by Yuan Retana MD at [facility] MAIN OR ??? PRO THYROIDECTOMY 03/28/2013 THYROIDECTOMY, TOTAL OR COMPLETE performed by Manny Mcknight MD at [facility] MAIN OR Functional Status/Social Hx: Quit [...] left blue toes with CTA showing R FNPS pseudoaneurysm (now thrombosed) and occluded ATs bilaterally. [...] 2.5x80 5. Completion RLE angiogram 6. L FNPS angiogram 7. 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 - L FNPS angriogram demonstrated: High femoral bifurcation over the proximal half of the femoral head. L FNPS access in the distal L FNPS. - Closure device: Mynx Technical Procedure: The [...] for a 45cm 5F Destination. V18 and Hillpoint and QuickCross catheters were used to select [...] 5F. A stationed picture of the L FNPS was performed as the patient was noted to have a very high bifurcation. Access appeared in the distal R FNPS. Closure and sheath removal was performed with [...] with pt and pt's spouse. Discharge to [facility]. Goal: Individualization & Mutuality Outcome: [...] sit/sit to supine -- Bed Mobility Goal, Crowley Level independent -- Bed Mobility Goal, Date [...] days -- Transfer Training Goal, Activity Type xkz-ub-zujea/giwit-vt-tdo -- Transfer Train Goal, Crowley Level conditional independence -- Transfer Train Goal, [...] call cabello within reach, Hourly rounding by RN/SENIOR ENVIRONMENTAL ENGINEER. Bed alarm / Chair alarm. Patient-specific [...] Smith MD - 08/15/2017 6:28 PM EST [facility] Operative Note Patient Name: Gregory Hoang : [id number] MR#: [id number] Case Date: 08/09/2017 Surgeon: Surgeon(s) and Role: [...] OUTCOME SUMMARY: Pt is A/O carrington4, Carrie MICHELEL /. Pt required around the clock PRN [...] 2.5x80 5. Completion RLE angiogram 6. L FNPS angiogram 7. Mynx closure Precautions/Restrictions: fall, sternal [...] other (see comments) (or swing bed) Pager: [phone] BASSAM ELIAS, PT 08/14/2017 Inpatient Physical Therapy [...] to Achieve by discharge Gait Training Goal, Crowley Level conditional independence;set up required Gait Training [...] these facilities over the weekend except for [facility]. CM spoke with [facility] CM Drea Sandhu, VAMSI who said that they do not anticipate any beds over the weekend. Reviewed with patient/ that they need to be aware that patient will need to take the first bed offered at the facilities that they make referrals to. Their choices are: 1- [facility] PHONE: [phone] FAX: [phone] 2- [facility] ([facility]) [address] [place] [address] 3- [facility]) [address] [place] [address] I have discussed Medicare/Private Insurance [...] RS/CM on Wednesday to follow-up. Covering pager #[phone] for today. Plan of Care - Henrique [...] with additional findings of pseudoaneurysm on R FNPS and bilateral anterior tibial artery occlusions. Was [...] an outpatient once discharged. Have patient call [phone] to set up an appointment. Follow-up: Dermatology will sign-off for now. Please do not hesitate to contact us if you have any questions orconcerns. Impression and Recommendations discussed with primary team on 08/13/2017. Karo Henderson MD Resident in Dermatology Section of Dermatology, Department of Surgery [facility] Pager [phone] Patient seen and evaluated with staff Back Tender Fourdrinier: Halima Cordero MD Section of Dermatology [facility] [...] 2.5x80 5. Completion RLE angiogram 6. L FNPS angiogram 7. Mynx closure Active Non-Hospital Problems [...] home with home health ([facility] PT[facility]OT) Pager: [phone] YASIR TELLO OT 08/12/2017 Occupational Therapy Rehabilitation [...] 2.5x80 5. Completion RLE angiogram 6. L FNPS angiogram 7. Mynx closure Past Medical History: [...] with 24/7 assistance and maximal services) Pager: [phone] NICHOLAS MORA, PT 08/12/2017 Physical Therapy Rehabilitation [...] sit/sit to supine -- Bed Mobility Goal, Crowley Level independent -- Bed Mobility Goal, Outcome Achieved -- goal ongoing Goal: Gait Training Goal Stand Alone Therapy Goal Outcome: Ongoing (Interventions Implemented as Appropriate) 08/11/17 1310 08/12/17 1510 Gait Training Goal Gait Training Goal, Date Established 08/11/17 -- Gait Training Goal, Time to Achieve 5 - 7 days -- Gait Training Goal, Crowley Level conditional independence -- Gait Training Goal, [...] days -- Transfer Training Goal, Activity Type zqy-jq-uuvmv/rfpdx-iz-owg -- Transfer Train Goal, Crowley Level conditional independence -- Transfer Training Goal, [...] Smith MD - 08/11/2017 2:52 PM EST [facility] Operative Note Patient Name: Gregory Hoang : [id number] MR#: [id number] Case Date: 08/11/2017 Surgeon: Surgeon(s) and Role: [...] 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 Completion RLE angiogram 6. L FNPS angiogram 7. Mynx closure He is very [...] Anticipated Discharge Disposition: inpatient rehabilitation facility Pager: [phone] LAWRENCE GONZALEZ, PT 08/11/2017 Physical Therapy Rehabilitation [...] to sit/sit to supine Bed Mobility Goal, Crowley Level independent Goal: Gait Training Goal Stand Alone Therapy Goal Outcome: Ongoing (Interventions Implemented as Appropriate) 08/11/17 1310 Gait Training Goal Gait Training Goal, Date Established 08/11/17 Gait Training Goal, Time to Achieve 5 - 7 days Gait Training Goal, Crowley Level conditional independence Gait Training Goal, Assist [...] 7 days Transfer Training Goal, Activity Type pwh-mh-lixoq/haofy-nz-zmc Transfer Train Goal, Crowley Level conditional independence Plan of [place] [...] call cabello within reach, Hourly rounding by RN/SENIOR ENVIRONMENTAL ENGINEER. Bed alarm / Chair alarm. ? [...] 04/05/2013 Hospitalizations Within the Past 30 Days: [facility] 07/20/2017 Anticipated Length Of Stay (If known): Expected Length of Hospitalization: 5-7 days2-3 days Current Decision-Making Capacity: Alert and oriented x 4 Advance Care Planning: on file Kisha Hoang [facility] [phone] Current Coping/Education/Information Needs: pt and spouse state [...] Health/Prescription Coverage: Primary Insurance: MEDICARE Secondary Insurance: [employer] [facility] Prescription Coverage: See above Preferred Pharmacy: [facility] Other: N/A Primary Care Provider: Lovely Vicente MD [phone] Patient/Caregiver Goals of Treatment: Patient plans to [...] of care planning. Kaitlin Saha RN Pager: [phone] Plan of Care - Melba Jaramillo RN [...] Overview Goal: Plan of Care Review 08/08/17 8424 Coping/Psychosocial Plan Of Care Reviewed With patient [...] call cabello within reach, Hourly rounding by RN/SENIOR ENVIRONMENTAL ENGINEER. Bed alarm / Chair alarm. Patient-specific [...] at bedside and MD TEAM Carrying pager [phone] contacted (via Radio page) and notified of [...] Dolan MD [facility] [place], [place] [address] (Wo rk) 05/28/2022 Laboratory Appointment Lab 05/28/2022 Office Visit Cardiology Zulma Dolan MD [facility] [place] [address] Liz Poole PA [facility] [place] [address] 06/10/2022 Office Visit Dermatology Laura Scherer MD [facility] [address], [place] [address] (Wo rk) documented as of [...] Glucose 160 65 - 199 [facility] mg/dL [facility] [...] Organization Address City/State/[place] [address] (ABNORMAL) Differential, Automated (08/16/2017 5:08 AM EST) [facility] Method Time Signature Neutrophils % 73.9 % [facility] LABORATORY Neutr Abs (ANC) 5.37 1.70 - [facility] 6.10 [facility] x10(3)/[facility] LABORATORY Lymphocytes % 10.1 % [facility] LAB[facility]ORY Lymphocytes Abs 0.7 (L) 0.9 - 3.2 [facility] x10(3)/[facility] LABORATORY Monocytes % 10.1 % [facility] LABOR[facility]ORY Monocyte Abs 0.7 0.3 - 0.9 [facility] x10(3)/[facility] LABORATORY Eosinophils % 5.1 % [facility] LAB[facility]ORY Eosinophils Abs 0.4 0.0 - 0.4 [facility] x10(3)/[facility] LABORATORY Basophils % 0.4 % [facility] [...] Melisa Gran Abs 0.03 0.00 - 0.04 x10(3)/[facility] Y [facility] LABORATORY Specimen Anatomical Collection Method Collection Time Receive d Time (Source) Location / / Volume Laterality Blood specimen 08/16/2017 5:08 AM 018 5:20 (specimen) EST AM EST Resulting Agency Comment Spec In Lab Yonathan Smith MD HEMATOLOGY ORDERABLES Performing Organization Address City/State/[place] [address] (ABNORMAL) Hemogram (08/16/2017 5:08 AM EST) Analysis Performed At Patho logist Time Signature WBC 7.3 4.0 - 9.5 [facility] x10(3)/[facility] LABORATORY RBC 3.36 (L) 4.58 - [facility] 5.54 [facility] x10(6)/[facility] LABORATORY Hemoglobin 9.7 (L) 13.7 - [facility] 16.5 gm/dL [facility] LABORATORY Hematocrit 30.3 (L) 40.5 - [facility] 48.5 % [facility] LABORATORY MCV 90.2 82.9 - [facility] 93.1 [facility] LABORATORY MCH 28.9 27.5 - [facility] 32.1 pg [facility] LABORATORY MCHC 32.0 32.0 - [facility] 35.7 gm/dL [facility] LABORATORY Platelets 282 145 - 357 [facility] x10(3)/[facility] LABORATORY RDWSD 53.9 (H) 36.0 - [facility] 45.0 [facility] LABORATORY RDWCV 16.5 (H) 11.4 - [facility] SU 13.8 % [facility] LABORATORY MPV 9.0 7.6 - 12.9 [facility] LABORATORY nRBC % Auto 0.0 % [facility] LABORATORY nRBC Abs Auto 0.000 0.000 - [facility] SU 0.000 [facility] x10(3)/[facility] LABORATORY Specimen Anatomical Collection Method Collection Time Receive d Time (Source) Location / / Volume Laterality Blood specimen 08/16/2017 5:08 AM 018 5:20 (specimen) EST AM EST Resulting Agency Comment Spec In Lab Yonathan Smith MD HEMATOLOGY ORDERABLES Performing Organization Address City/State/[place] [address] (ABNORMAL) Basic Metabolic Panel (non-fasting) (08/16/2017 5:08 AM EST) P athologist Signature Glucose Lvl 141 65 - 199 [facility] mg/dL [facility] [...] Organization Address City/State/[place] [address] (ABNORMAL) Prothrombin Time (08/16/2017 5:08 AM EST) athologist Signature PT 25.2 (H) 11.8 - 14.0 [facility] LABORATORY INR 2.3 (H) [...] Address City/State/ZIP Code Phon e Number [address] POCT Glucose (08/16/2017 4:09 AM EST) athologist Signature POC Glucose 147 65 - 199 [facility] mg/dL [facility] [...] Organization Address City/State/[place] [address] POCT Glucose (08/15/2017 11:56 PM EST) athologist Signature POC Glucose 176 65 - 199 [facility] SU mg/dL [facility] - [...] Organization Address City/State/[place] [address] POCT Glucose (08/15/2017 8:05 PM EST) athologist Signature POC Glucose 136 65 - 199 [place] mg/dL [place] [...] Organization Address City/State/[place] [address] (ABNORMAL) POCT Glucose (08/15/2017 4:50 PM EST) athologist Signature POC Glucose 232 (H) 65 - 199 [facility] SU mg/dL [facility] - [...] Organization Address City/State/[place] [address] POCT Glucose (08/15/2017 12:04 PM EST) athologist Signature POC Glucose 135 65 - 199 [facility] SU mg/dL [facility] - [...] Organization Address City/State/[place] [address] POCT Glucose (08/15/2017 7:36 AM EST) P athologist Signature POC Glucose 124 65 - 199 [facility] mg/dL [facility] [...] Organization Address City/State/[place] [address] (ABNORMAL) Differential, Automated (08/15/2017 6:22 AM EST) Patholo gist Method Time Signature Neutrophils % 76.1 % [facility] LABORATORY Neutr Abs (ANC) 6.62 (H) 1.70 - [facility] 6.10 [facility] x10(3)/[facility] L LABORATORY Lymphocytes % 9.3 % [facility] LABORATORY Lymphocytes Abs 0.8 (L) 0.9 - 3.2 [facility] x10(3)/[facility] LABORATORY Monocytes % 9.4 % [facility] LABORATORY Monocyte Abs 0.8 0.3 - 0.9 [facility] x10(3)/[facility] LABORATORY Eosinophils % 4.0 % [facility] LABORATORY Eosinophils Abs 0.4 0.0 - 0.4 [facility] x10(3)/[facility] LABORATORY Basophils % 0.6 % [facility] LABORATORY Basophils Abs 0.0 0.0 - 0.1 [facility] x10(3)/[facility] LABORATORY Immature Gran % 0.60 % [...] Organization Address City/State/[place] [address] (ABNORMAL) Hemogram (08/15/2017 6:22 AM EST) Analysis Performed At Patho logist Time Signature WBC 8.7 4.0 - 9.5 [facility] x10(3)/[facility] LABORATORY RBC 3.21 (L) 4.58 - [facility] 5.54 [facility] x10(6)/[facility] LABORATORY Hemoglobin 9.1 (L) 13.7 - [facility] 16.5 gm/dL [facility] LABORATORY Hematocrit 29.0 (L) 40.5 - [facility] 48.5 % [facility] LABORATORY MCV 90.3 82.9 - [facility] 93.1 [facility] LABORATORY MCH 28.3 27.5 - [facility] 32.1 pg [facility] LABORATORY MCHC 31.4 (L) 32[facility]0 - [facility]/dL [facility] LABORATORY Platelets 254 145 - 357 [facility] x10(3)/[facility] LABORATORY RDWSD 53.9 (H) 36.0 - [facility] SU 45.0 [facility] LABORATORY RDWCV 16.3 (H) 11.4 - [facility] SU 13.8 % [facility] LABORATORY MPV 8.8 7.6 - 12.9 [facility] LABORATORY nRBC % Auto 0.0 % [facility] LABORATORY nRBC Abs Auto 0.000 0.000 - [facility] SU 0.000 [facility] x10(3)/[facility] LABORATORY Specimen Anatomical Collection Method Collection Time Receive d Time (Source) Location / / Volume Laterality Blood specimen 08/15/2017 6:22 AM 018 6:33 (specimen) EST AM EST Resulting Agency Comment Spec In Lab Yonathan Smith MD HEMATOLOGY ORDERABLES Performing Organization Address City/[facility]/[place] [address] (ABNORMAL) Basic Metabolic Panel (non-fasting) (08/15/2017 6:22 AM EST) athologist Signature Glucose Lvl 118 65 - 199 [facility] mg/dL [facility] [...] or in patients with acute kidney failure. [email or web address] Specimen Anatomical Collection Method Collection Time Receive d Time (Source) Location / / Volume Laterality Blood specimen 08/15/2017 6:22 AM 018 6:33 (specimen) EST AM EST Resulting Agency Comment Spec In Lab Yonathan Smith MD CHEMISTRY ORDERABLES Performing Organization Address City/[facility]/[place] [address] (ABNORMAL) Prothrombin Time (08/15/2017 6:22 AM EST) athologist Signature PT 21.9 (H) 11.8 - 14.0 [facility] LABORATORY INR 1.9 (H) [...] Organization Address City/State/[place] [address] POCT Glucose (08/15/2017 4:33 AM EST) athologist Signature POC Glucose 164 65 - 199 [facility] mg/dL [facility] - [...] Organization Address City/State/[place] [address] POCT Glucose (08/15/2017 12:12 AM EST) athologist Signature POC Glucose 89 65 - 199 [facility]/dL [facility] - [...] Organization Address City/State/[place] [address] (ABNORMAL) POCT Glucose (08/14/2017 [...] Organization Address City/State/[place] [address] POCT Glucose (08/14/2017 5:11 PM EST) athologist Signature POC Glucose 174 65 - 199 [place] mg/dL [place] [...] Organization Address City/State/[place] [address] POCT Glucose (08/14/2017 12:10 PM EST) athologist Signature POC Glucose 141 65 - 199 [place] [facility] mg/dL [place] [...] Address City/State/ZIP Code Phon e Number [address] POCT Glucose (08/14/2017 8:07 AM EST) P athologist Signature POC Glucose 158 65 - 199 [facility] mg/dL [facility] [...] Organization Address City/State/[place] [address] (ABNORMAL) Differential, Automated (08/14/2017 4:52 AM EST) Patholo gist Method Time Signature Neutrophils % 78.6 % [facility] LABORATORY Neutr Abs (ANC) 7.70 (H) 1.70 - [facility] 6.10 [facility] x10(3)/[facility] L LABORATORY Lymphocytes % 7.8 % [facility] LABORATORY Lymphocytes Abs 0.8 (L) 0.9 - 3.2 [facility] x10(3)/[facility] LABORATORY Monocytes % 8.8 % [facility] LABORATORY Monocyte Abs 0.9 0.3 - 0.9 [facility] x10(3)/[facility] LABORATORY Eosinophils % 4.0 % [facility] LABORATORY Eosinophils Abs 0.4 0.0 - 0.4 [facility] x10(3)/[facility] LABORATORY Basophils % 0.5 % [facility] LABORATORY Basophils Abs 0.0 0.0 - 0.1 [facility] x10(3)/[facility] LABORATORY Immature Gran % 0.30 % [...] Abs 0.03 0.00 - 0.04 x10(3)/[facility] MAR Y [facility] LABORATORY Specimen Anatomical Collection Method Collection Time Receive d Time (Source) Location / / Volume Laterality Blood specimen 08/14/2017 4:52 AM 018 5:08 (specimen) EST AM EST Resulting Agency Comment Spec In Lab Yonathan Smith MD HEMATOLOGY ORDERABLES Performing Organization Address City/State/[place] [address] (ABNORMAL) Hemogram (08/14/2017 4:52 AM EST) Analysis Performed At Patho logist Time Signature WBC 9.8 (H) 4.0 - 9.5 [facility] x10(3)/[facility] LABORATORY RBC 3.32 (L) 4.58 - [facility] 5.54 [facility] x10(6)/[facility] LABORATORY Hemoglobin 9.5 (L) 13.7 - [facility] 16.5 gm/dL [facility] LABORATORY Hematocrit 30.3 (L) 40.5 - [facility] SU 48.5 % [facility] LABORATORY MCV 91.3 82.9 - [facility] SU 93.1 [facility] LABORATORY MCH 28.6 27.5 - [place] [facility] 32.1 pg [facility] LABORATORY MCHC 31.4 (L) 32.0 - [facility] SU 35.7 gm/dL [facility] LABORATORY Platelets 263 145 - 357 [facility] x[facility](3[facility] LABORATORY RDWSD 54.8 (H) 36.0 - [facility] SU 45.0 [facility] RDWCV 16.5 (H) 11.4 - [facility] SU 13.8 % [facility] LABORATORY MPV 9.1 7.6 - 12.9 [facility] LABORATORY nRBC % Auto 0.0 % [facility] LABORATORY nRBC Abs Auto 0.000 0.000 - [facility] 0.000 [facility] x10(3)/[facility] LABORATORY Specimen Anatomical Collection Method Collection Time Receive d Time (Source) Location / / Volume Laterality Blood specimen 08/14/2017 4:52 AM 018 5:08 (specimen) EST AM EST Resulting Agency Comment Spec In Lab Yonathan Smith MD HEMATOLOGY ORDERABLES Performing Organization Address City/[facility]/[place] [address] (ABNORMAL) Prothrombin Time (08/14/2017 4:52 AM EST) athologist Signature PT 18.8 (H) 11.8 - 14.0 [facility] [...] Organization Address City/State/[place] [address] (ABNORMAL) Basic Metabolic Panel (non-fasting) (08/14/2017 4:52 AM EST) athologist Signature Glucose Lvl 135 65 - 199 [facility] mg/dL [facility] [...] or in patients with acute kidney failure. [email or web address] Specimen Anatomical Collection Method Collection Time Receive d Time (Source) Location / / Volume Laterality Blood specimen 08/14/2017 4:52 AM 018 5:08 (specimen) EST AM EST Resulting Agency Comment Spec In Lab Yonathan Smith MD CHEMISTRY ORDERABLES Performing Organization Address City/State/[place] [address] POCT Glucose (08/14/2017 3:56 AM EST) P athologist Signature POC Glucose 135 65 - 199 [facility] mg/dL [facility] [...] Address City/State/ZIP [place] [address] POCT Glucose (08/13/2017 11:13 PM EST) athologist Signature POC Glucose 118 65 - 199 [place] mg/dL [place] [...] City/[facility]/ZIP [place] [address] (ABNORMAL) POCT Glucose (08/13/2017 [...] City/[facility]/ZIP Code [place] [address] POCT Glucose (08/13/2017 4:02 PM EST) athologist Signature POC Glucose 145 65 - 199 [place] mg/dL [place] [...] Organization Address City/State/[place] [address] POCT Glucose (08/13/2017 11:31 AM EST) P athologist Signature POC Glucose 179 65 - 199 [facility]/dL [facility] - [...] City/[facility]/[place] [address] (ABNORMAL) POCT Glucose (08/13/2017 10:16 AM EST) athologist Signature POC Glucose 211 (H) 65 - 199 [facility] mg/dL [facility] - [...] City/[facility]/ZIP Code Phon e Number [address] JULIAN, legs, multiple levels (08/13/2017 7:42 AM EST) Component Value Ref Test Analysis Performed At Patholo gist Range Method Time Signature VB Text Department: Vascular Surgery Lab VASCUBASE Report Patient: [id number] (GREGORY HOANG) CPT: 90968 ICD10: I99.8 Referring Physician: YONATHAN SMITH ?? Indications: s/p R 1,2,3 toe amps with red left foot, need n ew baseline Diabetes mellitus: yes ICD10 Diagnosis Code: I99.8 Findings: Right ?Pressure (mm Hg) ?? JULIAN ??Waveform ?TBI ?? Brachial Artery ?138 ? Dorsalis Pedis (Ankle) Arter y ?132 ? 0.94 ??Huron- Biphasic ? Posterior Tibial (Ankle) Art anila ??154 ? 1.10 ??[place]uron-Biphasic ? Fourth Toe ? 67 ? 0.48 [...] 156 65 - 199 [place] mg/dL [place] [...] Organization Address City/State/[place] [address] (ABNORMAL) Differential, Automated (08/13/2017 5:33 AM EST) [facility] Method Time Signature Neutrophils % 77.8 % [facility] LABORATORY Neutr Abs (ANC) 7.83 (H) 1.70 - [facility] 6.10 [facility] x10(3)/[facility] L LABORATORY Lymphocytes % 8.4 % [facility] LABORATORY Lymphocytes Abs 0.8 (L) 0.9 - 3.2 [facility] x10(3)/[facility] LABORATORY Monocytes % 8.3 % [facility] LABORATORY Monocyte Abs 0.8 0.3 - 0.9 [facility] x10(3)/[facility] LABORATORY Eosinophils % 4.6 % [facility] LABORATORY Eosinophils Abs 0.5 (H) 0.0 - 0.4 [facility] x10(3)/[facility] LABORATORY Basophils % 0.5 % [facility] LABORATORY Basophils Abs 0.0 0.0 - 0.1 [facility] x10(3)/[facility] LABORATORY Immature Gran % 0.40 [...] 0.00 - 0.04 x10(3)/mcL MAR Y [facility] LABORATORY Specimen Anatomical Collection Method Collection Time Receive d Time (Source) Location / / Volume Laterality Blood specimen 08/13/2017 5:33 AM 018 6:04 (specimen) EST AM EST Resulting Agency Comment Spec In Lab Yonathan Smith MD HEMATOLOGY ORDERABLES Performing Organization Address City/State/ZIP Code Phon e Number [address] (ABNORMAL) Hemogram (08/13/2017 5:33 AM EST) Analysis Performed At Patho logist Time Signature WBC 10.1 (H) 4.0 - 9.5 [facility] x10(3)/[facility] LABORATORY RBC 3.21 (L) 4.58 - [facility] 5.54 [facility] x10(6)/[facility] LABORATORY Hemoglobin 9.2 (L) 13.7 - [facility] 16.5 gm/dL [facility] LABORATORY Hematocrit 29.6 (L) 40.5 - [facility] 48.5 % [facility] LABORATORY MCV 92.2 82.9 - [facility] 93.1 [facility] LABORATORY MCH 28.7 27.5 - [facility] 32.1 pg [facility] LABORATORY MCHC 31.1 (L) 32.0 - [facility] gm/dL [facility] LABORATORY Platelets 263 145 - 357 [facility] x10(3)/[facility] LABORATORY RDWSD 54.8 (H) 36.0 - [facility] 45.0 [facility] LABORATORY RDWCV 16.4 (H) 11.4 - [facility] 13.8 % [facility] LABORATORY MPV 9.2 7.6 - 12.9 [facility] LABORATORY nRBC % Auto 0.0 % [facility] LABORATORY nRBC Abs Auto 0.000 0.000 - [facility] 0.000 [facility] x10(3)/[facility] LABORATORY Specimen Anatomical Collection Method Collection Time Receive d Time (Source) Location / / Volume Laterality Blood specimen 08/13/2017 5:33 AM 018 6:04 (specimen) EST AM EST Resulting Agency Comment Spec In Lab Yonathan Smith MD HEMATOLOGY ORDERABLES Performing Organization Address City/State/[place] [address] (ABNORMAL) Prothrombin Time (08/13/2017 5:33 AM EST) P athologist Signature PT 17.3 (H) 11.8 - 14.0 [facility] LABORATORY INR 1.4 (H) [...] City/State/ZIP Code Phon e Number [place] [id number] [address] (ABNORMAL) Basic Metabolic Panel (non-fasting) (08/13/2017 5:33 AM EST) athologist Signature Glucose Lvl 126 65 - 199 [facility] mg/dL [facility] [...] ORDERABLES Performing Organization Address City/[facility]/ZIP [facility] Phon e Number [address] POCT Glucose (08/13/2017 4:29 AM EST) athologist Signature POC Glucose 111 65 - 199 [facility] mg/dL [facility] - [...] City/[facility]/ZIP Code Phon e Number [address] POCT Glucose (08/12/2017 11:28 PM EST) athologist Signature POC Glucose 164 65 - 199 [facility] mg/dL [facility] [...] City/[facility]/[place] [address] (ABNORMAL) POCT Glucose (08/12/2017 7:40 PM EST) athologist Signature POC Glucose 209 (H) 65 - 199 [facility] SU mg/dL [facility] - [...] Address City/State/ZIP Code Phon e Number [address] POCT Glucose (08/12/2017 4:24 PM EST) athologist Signature POC Glucose 161 65 - 199 [facility] mg/dL [facility] [...] Organization Address City/State/[place] [address] POCT Glucose (08/12/2017 12:00 PM EST) athologist Signature POC Glucose 167 65 - 199 [place] mg/dL [place] [...] Organization Address City/State/[place] [address] POCT Glucose (08/12/2017 7:25 AM EST) P athologist Signature POC Glucose 152 65 - 199 [facility] mg/dL [facility] [...] Organization Address City/State/[place] [address] (ABNORMAL) Differential, Automated (08/12/2017 6:29 AM EST) Patholo gist Method Time Signature Neutrophils % 78.7 % [facility] LABORATORY Neutr Abs (ANC) 7.94 (H) 1.70 - [facility] 6.10 [facility] x10(3)/[facility] LABORATORY Lymphocytes % 8.8 % [facility] LABORATORY Lymphocytes Abs 0.9 0.9 - 3.2 [facility] x10(3)/[facility] LABORATORY Monocytes % 7.8 % [facility] LABORATORY Monocyte Abs 0.8 0.3 - 0.9 [facility] x10(3)/[facility] LABORATORY Eosinophils % 3.9 % [facility] LABORATORY Eosinophils Abs 0.4 0.0 - 0.4 [facility] x10(3)/[facility] LABORATORY Basophils % 0.3 % [facility] LABORATORY Basophils Abs 0.0 0.0 - 0.1 [facility] x10(3)/[facility] LABORATORY Immature Gran % 0.50 % [...] Organization Address City/State/[place] [address] (ABNORMAL) Hemogram (08/12/2017 6:29 AM EST) Analysis Performed At Patho logist Time Signature WBC 10.1 (H) 4.0 - 9.5 [facility] x10(3)/[facility] LABORATORY RBC 3.02 (L) 4.58 - [facility] 5.54 [facility] x10(6)/[facility] LABORATORY Hemoglobin 8.7 (L) 13.7 - [facility] 16.5 gm/dL [facility] LABORATORY Hematocrit 28.1 (L) 40.5 - [facility] 48.5 % [facility] LABORATORY MCV 93.0 82.9 - [facility] 93.1 [facility] LABORATORY MCH 28.8 27.5 - [facility] 32.1 pg [facility] LABORATORY MCHC 31.0 (L) 32.0 - [facility] 35.7 gm/dL [facility] LABORATORY Platelets 223 145 - 357 [facility] x10(3)/[facility] LABORATORY RDWSD 56.1 (H) 36.0 - [facility] 45.0 [facility] LABORATORY RDWCV 16.4 (H) 11.4 - [facility] SU 13.8 % [facility] LABORATORY MPV 9.0 7.6 - 12.9 [facility] LABORATORY nRBC % Auto 0.0 % [facility] LABORATORY nRBC Abs Auto 0.000 0.000 - [facility] SU 0.000 [facility] x10(3)/[facility] LABORATORY Specimen Anatomical Collection Method Collection Time Receive d Time (Source) Location / / Volume Laterality Blood specimen 08/12/2017 6:29 AM 018 6:38 (specimen) EST AM EST Resulting Agency Comment Spec In Lab Yonathan Smith MD HEMATOLOGY ORDERABLES Performing Organization Address City/[facility]/[place] [address] (ABNORMAL) Prothrombin Time (08/12/2017 6:29 AM EST) athologist Signature PT 16.1 (H) 11.8 - 14.0 [facility] [...] City/[facility]/[place] [address] (ABNORMAL) Basic Metabolic Panel (non-fasting) (08/12/2017 6:29 AM EST) athologist Signature Glucose Lvl 151 65 - 199 [facility] mg/dL [facility] [...] City/[facility]/ZIP Code Phon e Number [address] POCT Glucose (08/12/2017 4:08 AM EST) athologist Signature POC Glucose 181 65 - 199 [facility]/dL [facility] [...] City/[facility]/[place] [address] (ABNORMAL) POCT Glucose (08/12/2017 12:17 AM EST) athologist Signature POC Glucose 221 (H) 65 - 199 [facility] mg/dL [facility] - [...] Organization Address City/State/[place] [address] (ABNORMAL) POCT Glucose (08/11/2017 [...] City/[facility]/[place] [address] POCT Glucose (08/11/2017 5:59 PM EST) athologist Signature POC Glucose 169 65 - 199 [place] mg/dL [place] [...] Organization Address City/State/[place] [address] (ABNORMAL) POCT Glucose (08/11/2017 [...] Address City/State/ZIP Code Phon e Number [address] POCT Glucose (08/11/2017 12:04 PM EST) athologist Signature POC Glucose 182 65 - 199 [facility] mg/dL [facility] [...] City/[facility]/[place] [address] POCT Glucose (08/11/2017 7:31 AM EST) athologist Signature POC Glucose 156 65 - 199 [facility] mg/dL [facility] [...] Address City/State/ZIP Code Phon e Number [address] (ABNORMAL) Differential, Automated (08/11/2017 6:16 AM EST) [facility] gist Method Time Signature Neutrophils % 83.7 % [facility] LABORATORY Neutr Abs (ANC) 10.76 (H) 1.70 - [facility] 6.10 [facility] x10(3)/[facility] L LABORATORY Lymphocytes % 6.0 % [facility] LABORATORY Lymphocytes Abs 0.8 (L) 0.9 - 3.2 [facility] x10(3)/[facility] LABORATORY Monocytes % 7.5 % [facility] [facility] Monocyte Abs 1.0 (H) 0.3 - 0.9 [facility] x10(3)/[facility] LABORATORY Eosinophils % 2.0 % [facility] Eosinophils Abs 0.3 0.0 - 0.4 [facility] x10(3)/[facility] LABORATORY Basophils % 0.3 % [facility] Basophils Abs 0.0 0.0 - 0.1 [facility] x10(3)/[facility] LABORATORY Immature Gran % 0.50 % [...] Organization Address City/State/[place] [address] (ABNORMAL) Hemogram (08/11/2017 6:16 AM EST) Analysis Performed At Patho logist Time Signature WBC 12.9 (H) 4.0 - 9.5 [facility] x10(3)/[facility] LABORATORY RBC 3.28 (L) 4.58 - [facility] 5.54 [facility] x10(6)/[facility] LABORATORY Hemoglobin 9.5 (L) 13.7 - [facility] 16.5 gm/dL [facility]OR[facility]ORY Hematocrit 29.8 (L) 40.5 - [place] SU 48.5 % [facility]AT[facility] MCV 90.9 82.9 - [facility]1 [facility] LABORATORY MCH 29.0 27.5 - [place] DAVIS 32.1 [facility] LABORATORY MCHC 31.9 (L) 32.0 - [place] DAVIS 35.7 gm/dL [facility] Platelets 236 145 - 357 [facility] x10(3)/[facility] LABORATORY RDWSD 53.5 (H) 36.0 - [place] SU 45.0 [facility] LABORATORY RDWCV 16.3 (H) 11.4 - [facility] 13.8 % [facility] LABORATORY MPV 8.8 7.6 - 12.9 [facility] nRBC % Auto 0.0 % [facility] nRBC Abs Auto 0.000 0.000 - [facility] 0.000 [facility] x10(3)/[facility] LABORATORY Specimen Anatomical Collection Method Collection Time Receive d Time (Source) Location / / Volume Laterality Blood specimen 08/11/2017 6:16 AM 018 6:24 (specimen) EST AM EST Resulting Agency Comment Spec In Lab Yonathan Smith MD HEMATOLOGY ORDERABLES Performing Organization Address City/State/ZIP Code Phon e Number [place] [id number] HOSPITAL LABORATORY Drive (ABNORMAL) Prothrombin Time (08/11/2017 6:16 AM EST) P athologist Signature PT 15.5 (H) 11.8 - 14.0 [facility] [...] Organization Address City/State/[place] [address] Basic Metabolic Panel (non-fasting) (08/11/2017 6:16 AM EST) P athologist Signature Glucose Lvl 139 65 - 199 [facility] mg/dL [facility] [...] or in patients with acute kidney failure. [email or web address] Specimen Anatomical Collection Method Collection Time Receive d Time (Source) Location / / Volume Laterality Blood specimen 08/11/2017 6:16 AM 018 6:24 (specimen) EST AM EST Resulting Agency Comment Spec In Lab Yonathan Smith MD CHEMISTRY ORDERABLES Performing Organization Address City/State/ZIP Code Phon e Number [address] POCT Glucose (08/11/2017 4:07 AM EST) athologist Signature POC Glucose 162 65 - 199 [place] ZHAOSU mg/dL [place] [...] City/[facility]/ZIP Code Phon e Number [place] [address] POCT Glucose (08/10/2017 11:59 [...] City/[facility]/ZIP Code Phon e Number [place] DAVIS [address] POCT Glucose (08/10/2017 8:12 PM EST) athologist Signature POC Glucose 156 65 - 199 [place] SU mg/dL [place] [...] Organization Address City/State/[place] [address] (ABNORMAL) POCT Glucose (08/10/2017 4:42 PM EST) P athologist Signature POC Glucose 211 (H) 65 - 199 [facility]/dL [facility] [...] Address City/State/ZIP Code Phon e Number [address] (ABNORMAL) Differential, Automated (08/10/2017 2:30 PM EST) Patholo gist Method Time Signature Neutrophils % 87.6 % [facility] Neutr Abs (ANC) 9.90 (H) 1.70 - [facility] 6.10 [facility] x10(3)/[facility] L LABORATORY Lymphocytes % 4.3 % [facility] Lymphocytes Abs 0.5 (L) 0.9 - 3.2 [facility] x10(3)/[facility] LABORATORY Monocytes % 6.0 % [facility] Monocyte Abs 0.7 0.3 - 0.9 [facility] x10(3)/[facility] LABORATORY Eosinophils % 1.1 % [facility] Eosinophils Abs 0.1 0.0 - 0.4 [facility] x10(3)/[facility] LABORATORY Basophils % 0.4 % [facility] Basophils Abs 0.0 0.0 - 0.1 [facility] x10(3)/[facility] LABORATORY Immature Gran % 0.60 % [...] Organization Address City/State/[place] [address] (ABNORMAL) Hemogram (08/10/2017 2:30 PM EST) Analysis Performed At Patho logist Time Signature WBC 11.3 (H) 4.0 - 9.5 [facility] x10(3)/[facility] LABORATORY RBC 3.13 (L) 4.58 - [facility] SU 5.54 [facility] x10(6)/[facility] LABORATORY Hemoglobin 8.9 (L) 13.7 - [facility] 16.[facility] gm/dL [facility]ORATORY Hematocrit 28.4 (L) 40.5 - [facility] 48.5 % [facility] LABORATORY MCV 90.7 82.9 - [facility] 93.1 [facility] LABORATORY MCH 28.4 27.5 - [facility] SU 32.1 pg [facility] LABORATORY MCHC 31.3 (L) 32.0 - [facility] 35.7 gm/dL [facility] LABORATORY Platelets 213 145 - 357 [facility] x10(3)/[facility] LABORATORY RDWSD 53.7 (H) 36.0 - [facility] SU 45.0 [facility] LABORATORY RDWCV 16.4 (H) 11.4 - [facility] SU 13.8 % [facility] LABORATORY MPV 8.9 7.6 - 12.9 [facility] LABORATORY nRBC % Auto 0.0 % [facility] nRBC Abs Auto 0.000 0.000 - [facility] SU 0.000 [facility] x10(3)/[facility] LABORATORY Specimen Anatomical Collection Method Collection Time Receive d Time (Source) Location / / Volume Laterality Blood specimen 08/10/2017 2:30 PM 018 2:48 (specimen) EST PM EST Resulting Agency Comment Spec In Lab Yonathan Smith MD HEMATOLOGY ORDERABLES Performing Organization Address City/State/[place] [address] (ABNORMAL) POCT Glucose (08/10/2017 1:50 PM EST) athologist Signature POC Glucose 243 (H) 65 - 199 [facility]dL [facility] [...] City/[facility]/[place] [address] POCT Glucose (08/10/2017 11:21 AM EST) athologist Signature POC Glucose 156 65 - 199 [facility] mg/dL [facility] [...] Organization Address City/State/[place] [address] (ABNORMAL) Differential, Automated (08/10/2017 10:28 AM EST) [facility] [employer] [facility] [employer] gist Method Time Signature Neutrophils % 85.3 % [facility] Neutr Abs (ANC) 9.43 (H) 1.70 - [facility] SU 6.10 [facility] x10(3)/[facility] L LABORATORY Lymphocytes % 5.5 % [facility] Lymphocytes Abs 0.6 (L) 0.9 - 3.2 [facility] x10(3)/[facility] LABORATORY Monocytes % 5.9 % [facility] Monocyte Abs 0.6 0.3 - 0.9 [facility] x10(3)/[facility] LABORATORY Eosinophils % 2.1 % [facility] Eosinophils Abs 0.2 0.0 - 0.4 [facility] x10(3)/[facility] LABORATORY Basophils % 0.4 % [facility] Basophils Abs 0.0 0.0 - 0.1 [facility] x10(3)/[facility] LABORATORY Immature Gran % 0.80 % [...] Organization Address City/State/[place] [address] (ABNORMAL) Hemogram (08/10/2017 10:28 AM EST) Analysis Performed At Patho logist Time Signature WBC 11.0 (H) 4.0 - 9.5 [facility] x10(3)/[facility] LABORATORY RBC 3.02 (L) 4.58 - [facility] 5.54 [facility] x10(6)/[facility] LABORATORY Hemoglobin 8.8 (L) 13.7 - [facility] 16.5 gm/dL [facility] LABORATORY Hematocrit 28.1 (L) 40.5 - [place] DAVIS 48.5 % [facility] LABORATORY MCV 93.0 82.9 - [facility] 93.1 [facility] LABORATORY MCH 29.1 27.5 - [place]IVASCK 32.1 pg [facility] LABORATORY MCHC 31.3 (L) 32.0 - [place] DAVIS 35.7 gm/dL [facility] LABORATORY Platelets 207 145 - 357 [place] x10(3)/[facility] LABORATORY RDWSD 55.3 (H) 36.0 - [place]IV[place]CK 45.0 [facility] LABORATORY RDWCV 16.4 (H) 11.4 - [place] SU 13.8 % [facility] LABORATORY MPV 9.0 7.6 - 12.9 [facility] LABORATORY nRBC % Auto 0.0 % [facility] nRBC Abs Auto 0.000 0.000 - [place] ZHA[place]U 0.000 [facility] x10(3)/[facility] LABORATORY Specimen Anatomical Collection Method Collection Time Receive d Time (Source) Location / / Volume Laterality Blood specimen 08/10/2017 10:28 8 (specimen) AM EST 10:35 AM EST Resulting Agency Comment Spec In Lab Yonathan Smith MD HEMATOLOGY ORDERABLES Performing Organization Address City/State/ZIP Code Phon e Number [place] [id number] HOSPITAL LABORATORY Drive VS Angiogram/intervention (vascular) (08/10/2017 [...] 2.5x80 5. Completion RLE angiogram 6. L FNPS angiogram 7. 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 - L FNPS angriogram demonstrated: High fe moral bifurcation over the proximal half of the femoral head. L FNPS access in the distal L FNPS. - Closure device: Mynx Technical Procedure: ?The [...] for a 45cm 5F Destination. V18 and Hillpoint a nd QuickCross catheters were used to [...] bifurcation. Access appeared in the distal R FNPS. Closure and sheath removal was performed with [...] 2.5x80 5. Completion RLE angiogram 6. L FNPS angiogram 7. 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 - L FNPS angriogram demonstrated: High fe moral bifurcation over the proximal half of the femoral head. L FNPS access in the distal L FNPS. - Closure device: Mynx Technical Procedure: The [...] for a 45cm 5F Destination. V18 and Hillpoint a nd QuickCross catheters were used to [...] bifurcation. Access appeared in the distal R FNPS. Closure and sheath removal was performed with [...] Differential, Automated (08/10/2017 5:50 AM EST) [facility] Method Time Signature Neutrophils % 80.1 % [facility] Neutr Abs (ANC) 9.01 (H) 1.70 - [facility] 6.10 [facility] x10(3)/[facility] LABORATORY Lymphocytes % 8.8 % [facility] Lymphocytes Abs 1.0 0.9 - 3.2 [facility] x[facility](3[facility] LABORATORY Monocytes % 8.3 % [facility] Monocyte Abs 0.9 0.3 - 0.9 [facility] x[facility](3[facility] LABORATORY Eosinophils % 2.0 % [facility] Eosinophils Abs 0.2 0.0 - 0.4 [facility] x10(3)/[facility] LABORATORY Basophils % 0.4 % [facility] Basophils Abs 0.0 0.0 - 0.1 [facility] x10(3)/[facility] LABORATORY Immature Gran % 0.40 [...] Organization Address City/State/[place] [address] (ABNORMAL) Hemogram (08/10/2017 5:50 AM EST) Analysis Performed At Patho logist Time Signature WBC 11.3 (H) 4.0 - 9.5 [facility] x10(3)/[facility] LABORATORY RBC 3.15 (L) 4.58 - [facility] 5.54 [facility] x10(6)/[facility] LABORATORY Hemoglobin 8.9 (L) 13.7 - [facility] 16.5 gm/dL [facility] LABORATORY Hematocrit 29.0 (L) 40.5 - [facility] 48.5 % [facility] LABORATORY MCV 92.1 82.9 - [facility] 93.1 [facility] LABORATORY MCH 28.3 27.5 - [place] SU 32.1 pg [facility] LABORATORY MCHC 30.7 (L) 32.0 - [facility] 35.7 gm/dL [facility] LABORATORY Platelets 231 145 - 357 [facility] x10(3)/[facility] LABORATORY RDWSD 53.9 (H) 36.0 - [place] SU 45.0 [facility] LABORATORY RDWCV 16.2 (H) 11.4 - [facility] SU 13.8 % [facility] LABORATORY MPV 8.7 7.6 - 12.9 [facility] LABORATORY nRBC % Auto 0.0 % [facility] nRBC Abs Auto 0.000 0.000 - [facility] 0.000 [facility] x10(3)/[facility] LABORATORY Specimen Anatomical Collection Method Collection Time Receive d Time (Source) Location / / Volume Laterality Blood specimen 08/10/2017 5:50 AM 018 5:59 (specimen) EST AM EST Resulting Agency Comment Spec In Lab Yonathan Smith MD HEMATOLOGY ORDERABLES Performing Organization Address City/State/[place] [address] (ABNORMAL) Basic Metabolic Panel (non-fasting) (08/10/2017 5:50 AM EST) P athologist Signature Glucose Lvl 135 65 - 199 [facility] mg/dL [facility] [...] or in patients with acute kidney failure. [email or web address] Specimen Anatomical Collection Method Collection Time Receive d Time (Source) Location / / Volume Laterality Blood specimen 08/10/2017 5:50 AM 018 5:59 (specimen) EST AM EST Resulting Agency Comment Spec In Lab Yonathan Smith MD CHEMISTRY ORDERABLES Performing Organization Address [facility] [place] [address] (ABNORMAL) Prothrombin Time (08/10/2017 5:50 AM EST) athologist Signature PT 16.8 (H) 11.8 - 14.0 [facility] LABORATORY INR 1.4 (H) [...] HEMATOLOGY ORDERABLES Performing Organization Address City/[facility] [place] [address] (ABNORMAL) POCT Glucose (08/10/2017 4:01 AM EST) athologist Signature POC Glucose 206 (H) 65 - 199 [facility] mg/dL [facility] [...] Organization Address City/State/[place] [address] POCT Glucose (08/10/2017 2:01 [...] City/[facility]/[place] [address] (ABNORMAL) POCT Glucose (08/09/2017 11:42 PM EST) athologist Signature POC Glucose 283 (H) 65 - 199 [facility] SU mg/dL [facility] - [...] Organization Address City/State/[place] [address] POCT Glucose (08/09/2017 8:55 [...] City/[facility]/[place] [address] (ABNORMAL) APTT (08/09/2017 6:42 [...] City/[facility]/[place] [address] POCT Glucose (08/09/2017 4:41 PM EST) athologist Signature POC Glucose 195 65 - 199 [facility] mg/dL [facility] - [...] City/[facility]/[place] [address] POCT Glucose (08/09/2017 12:29 PM EST) athologist Signature POC Glucose 140 65 - 199 [facility] mg/dL [facility] - [...] ORDERABLE S Performing Organization Address [facility]/ZIP Code Phon e Number [address] POCT Glucose (08/09/2017 9:59 AM EST) P athologist Signature POC Glucose 135 65 - 199 [facility] mg/dL [facility] [...] ORDERABLE S Performing Organization Address [facility]/[place] [address] Specimen to Pathology (08/09/2017 [...] City/[facility]/[place] [address] Surgical Pathology Report (08/09/2017 8:40 AM EST) Component Value Ref Test Analysis Performed At Patholo gist Range Method Time Signature Surgical [id number] ? Location: [facility]; [facility]; A [facility] Report The signing pathologist has [...] Henrique Flower Verified: ??08/13/2017 ?Pathologist Performed at: ??-[facility] Dept. of Pathology, [place], [place] CLINICAL INFORMATION Specimen Submitted: A [...] Organization Address City/State/[place] [address] Anaerobic Culture (08/09/2017 8:30 AM EST) [facility] Method Time Signature Anaerobic No anaerobic [place] SU Culture organisms [facility] LABORATORY Specimen Anatomical [...] City/[facility]/[place] [address] (ABNORMAL) Abscess/Wound Aspirate Culture (08/09/2017 8:30 AM EST) [facility] [employer] Method Time Signature Abscess/Wound Moderate mixed [facility] Aspirate bacterial [place] Culture morphotypes [facility] normal LABORATORY cutaneous leroy (A) Gram Stain Rare White Blood Cells [place] Few Gram Positive Cocci in pairs [place] () [facility] LABORATORY Organism Gram Positive [place] Cocci in pairs [place] () [facility] LABORATORY [...] City/[facility]/ZIP Code [place] [address] POCT Glucose (08/09/2017 4:28 AM EST) P athologist Signature POC Glucose 128 65 - 199 [facility] mg/dL [facility] - [...] Organization Address City/State/[place] [address] ABORH Recheck Status (08/09/2017 1:10 AM EST) [facility] Method Time Signature ABORH Type Completed [facility] LABORATORY Specimen Anatomical Collection Method Collection Time Receive d Time (Source) Location / / Volume Laterality Blood specimen 08/09/2017 1:10 AM 018 1:35 (specimen) EST AM EST Resulting Agency Comment Spec In Lab Yonathan Smith MD BLOOD BANK ORDERABLES Performing Organization Address City/State/[place] [address] Antibody screen (08/09/2017 1:10 AM EST) [facility] Method [place] Signature Ab Screen Negative [facility] LABORATORY Expires at 08/12/2017 [facility] [id number] on: [facility] LABORATORY Specimen Anatomical Collection Method Collection Time Receive d Time (Source) Location / / Volume Laterality Blood specimen 08/09/2017 1:10 AM 018 1:35 (specimen) EST AM EST Resulting Agency Comment Spec In Lab Yonathan Smith MD BLOOD BANK ORDERABLES Performing Organization Address City/State/[place] [address] ABO/Rh Typing (08/09/2017 1:10 [...] Organization Address City/State/[place] [address] (ABNORMAL) APTT (08/09/2017 1:10 [...] Organization Address City/State/[place] [address] (ABNORMAL) Differential, Automated (08/09/2017 1:10 AM EST) [facility] Method Time Signature Neutrophils % 76.2 % [facility] LABORATORY Neutr Abs (ANC) 8.59 (H) 1.70 - [facility] 6.10 [facility] x10(3)/[facility] LABORATORY Lymphocytes % 11.0 % [facility] LABORATORY Lymphocytes Abs 1.2 0.9 - 3.2 [facility] x10(3)/[facility] LABORATORY Monocytes % 8.4 % [facility] LABORATORY Monocyte Abs 1.0 (H) 0.3 - 0.9 [facility] x10(3)/[facility] LABORATORY Eosinophils % 3.5 % [facility] LABORATORY Eosinophils Abs 0.4 0.0 - 0.4 [facility] x10(3)/[facility] LABORATORY Basophils % 0.5 % [facility]ORATORY Basophils Abs 0.1 0.0 - 0.1 [facility] x10(3)/[facility] LABORATORY Immature Gran % 0.40 [...] Organization Address City/State/[place] [address] (ABNORMAL) Hemogram (08/09/2017 1:10 AM EST) Analysis Performed At Patho logist Time Signature WBC 11.3 (H) 4.0 - 9.5 [facility] x10(3)/[facility] LABORATORY RBC 3.47 (L) 4.58 - [facility] 5.54 [facility] x10(6)/[facility] LABORATORY Hemoglobin 10.0 (L) 13.7 - [facility] 16.5 gm/dL [facility] LABORATORY Hematocrit 31.9 (L) 40.5 - [facility] 48.5 % [facility] LABORATORY MCV 91.9 82.9 - [facility] 93.1 [facility] LABORATORY MCH 28.8 27.5 - [facility] 32.1 pg [facility] LABORATORY MCHC 31.3 (L) 32.0 - [facility] 35.7 gm/dL [facility] LABORATORY Platelets 234 145 - 357 [facility] x10(3)/[facility] LABORATORY RDWSD 54.0 (H) 36.0 - [facility] SU 45.0 [facility] LABORATORY RDWCV 16.2 (H) 11.4 - [facility] SU 13.8 % [facility] LABORATORY MPV 8.7 7.6 - 12.9 [facility] LABORATORY nRBC % Auto 0.0 % [facility] [facility] nRBC Abs Auto 0.000 0.000 - [facility] SU 0.000 [facility] x10(3)/[facility] LABORATORY Specimen Anatomical Collection Method Collection Time Receive d Time (Source) Location / / Volume Laterality Blood specimen 08/09/2017 1:10 AM 018 1:19 (specimen) EST AM EST Resulting Agency Comment Spec In Lab Yonathan Smith MD HEMATOLOGY ORDERABLES Performing Organization Address City/[facility]/[place] [address] (ABNORMAL) Prothrombin Time (08/09/2017 1:10 AM EST) P athologist Signature PT 16.0 (H) 11.8 - 14.0 [facility] [...] City/[facility]/[place] [address] (ABNORMAL) Basic Metabolic Panel (non-fasting) (08/09/2017 1:10 AM EST) P athologist Signature Glucose Lvl 108 65 - 199 [facility] mg/dL [facility] [...] Address City/State/ZIP Code Phon e Number [address] POCT Glucose (08/09/2017 12:05 AM EST) athologist Signature POC Glucose 128 65 - 199 [facility] mg/dL [facility] [...] City/[facility]/[place] [address] (ABNORMAL) POCT Glucose (08/08/2017 7:36 PM EST) athologist Signature POC Glucose 215 (H) 65 - 199 [facility]/dL [facility] - [...] Organization Address City/State/[place] [address] (ABNORMAL) POCT Glucose (08/08/2017 6:23 PM EST) P athologist Signature POC Glucose 216 (H) 65 - 199 [facility] mg/dL [facility] - [...] City/[facility]/[place] [address] (ABNORMAL) APTT (08/08/2017 6:00 [...] City/[facility]/[place] [address] POCT Glucose (08/08/2017 4:42 PM EST) athologist Signature POC Glucose 78 65 - 199 [facility] mg/dL [facility] [...] Organization Address City/State/[place] [address] (ABNORMAL) POCT Glucose (08/08/2017 4:01 PM EST) athologist Signature POC Glucose 58 (L) 65 - 199 [facility] mg/dL [facility] [...] Organization Address City/State/[place] [address] POCT Glucose (08/08/2017 11:51 AM EST) athologist Signature POC Glucose 90 65 - 199 [facility] mg/dL [facility] [...] Organization Address City/State/[place] [address] (ABNORMAL) APTT (08/08/2017 10:27 [...] Address City/State/ZIP Code Phon e Number [address] POCT Glucose (08/08/2017 8:02 AM EST) athologist Signature POC Glucose 178 65 - 199 [facility] mg/dL [facility] [...] City/[facility]/[place] [address] (ABNORMAL) APTT (08/08/2017 4:51 AM EST) athologist Signature PTT >160 25 - 35 [facility] (Critical) sec [facility] LABORATORY Comment: Called by: HOWARD, Read back [...] Organization Address City/State/[place] [address] (ABNORMAL) Differential, Automated (08/08/2017 4:51 AM EST) [facility] gist Method Time Signature Neutrophils % 77.9 % [facility] Neutr Abs (ANC) 8.17 (H) 1.70 - [facility] 6.10 [facility] x10(3)/[facility] LABORATORY Lymphocytes % 10.3 % [facility] Lymphocytes Abs 1.1 0.9 - 3.2 [facility] x10(3)/[facility] LABORATORY Monocytes % 7.0 % [facility] Monocyte Abs 0.7 0.3 - 0.9 [facility] x10(3)/[facility] LABORATORY Eosinophils % 3.6 % [facility] Eosinophils Abs 0.4 0.0 - 0.4 [facility] x10(3)/[facility] LABORATORY Basophils % 0.5 % [facility] Basophils Abs 0.0 0.0 - 0.1 [facility] x10(3)/[facility] LABORATORY Immature Gran % 0.70 % [...] Organization Address City/State/[place] [address] (ABNORMAL) Hemogram (08/08/2017 4:51 AM EST) Analysis Performed At Patho logist Time Signature WBC 10.5 (H) 4.0 - 9.5 [facility] x[facility](3[facility] LABORATORY RBC 3.27 (L) 4.58 - [facility] 5.54 [facility] x10(6)/[facility] LABORATORY Hemoglobin 9.3 (L) 13.7 - [facility] 16.5 gm/dL [facility] LABORATORY Hematocrit 30.3 (L) 40.5 - [facility] 48.5 % [facility] LABORATORY MCV 92.7 82.9 - [facility] 93.1 [facility] LABORATORY MCH 28.4 27.5 - [facility] 32.1 pg [facility] LABORATORY MCHC 30.7 (L) 32.0 - [facility] 35.7 gm/dL [facility] LABORATORY Platelets 252 145 - 357 [facility] x10(3)/[facility] LABORATORY RDWSD 54.6 (H) 36.0 - [facility] 45.0 [facility] LABORATORY RDWCV 16.2 (H) 11.4 - [place] 13.8 % [facility] LABORATORY MPV 9.1 7.6 - 12.9 [facility] LABORATORY nRBC % Auto 0.0 % [facility] nRBC Abs Auto 0.000 0.000 - [place] 0.000 [facility] x10(3)/[facility] LABORATORY Specimen Anatomical Collection Method Collection Time Receive d Time (Source) Location / / Volume Laterality Blood specimen 08/08/2017 4:51 AM 018 5:14 (specimen) EST AM EST Resulting Agency Comment Spec In Lab Yonathan Smith MD HEMATOLOGY ORDERABLES Performing Organization Address City/State/[place] [address] (ABNORMAL) Prothrombin Time (08/08/2017 4:51 AM EST) P athologist Signature PT 18.1 (H) 11.8 - 14.0 [facility] LABORATORY INR 1.5 (H) [...] Organization Address City/State/[place] [address] (ABNORMAL) Basic Metabolic Panel (non-fasting) (08/08/2017 4:51 AM EST) athologist Signature Glucose Lvl 229 (H) 65 - 199 [facility] mg/dL [facility] [...] City/[facility]/ZIP Code Phon e Number [address] POCT Glucose (08/08/2017 4:20 AM EST) athologist Signature POC Glucose 193 65 - 199 [facility] mg/dL [facility] [...] Address City/State/ZIP Code Phon e Number [address] POCT Glucose (08/07/2017 11:11 PM EST) athologist Signature POC Glucose 124 65 - 199 [facility] mg/dL [facility] [...] City/[facility]/[place] [address] (ABNORMAL) APTT (08/07/2017 10:18 [...] City/[facility]/[place] [address] POCT Glucose (08/07/2017 8:10 PM EST) athologist Signature POC Glucose 140 65 - 199 [facility] mg/dL [facility] [...] City/[facility]/[place] [address] POCT Glucose (08/07/2017 5:27 PM EST) athologist Signature POC Glucose 187 65 - 199 [facility] mg/dL [facility] [...] City/[facility]/[place] [address] POCT Glucose (08/07/2017 3:29 PM EST) athologist Signature POC Glucose 86 65 - 199 [facility]/dL [facility] - [...] ORDERABLE S Performing Organization Address [facility]/ZIP [facility] [place] [address] (ABNORMAL) APTT (08/07/2017 2:50 [...] ORDERABLES Performing Organization Address City/[facility]/ZIP [facility] Phon e Number [address] (ABNORMAL) POCT Glucose (08/07/2017 2:23 PM EST) athologist Signature POC Glucose 55 (L) 65 - 199 [facility] mg/dL [facility] [...] Address City/State/ZIP Code Phon e Number [address] POCT Glucose (08/07/2017 12:08 PM EST) P athologist Signature POC Glucose 77 65 - 199 [facility] mg/dL [facility] [...] Address City/State/ZIP Code Phon e Number [address] (ABNORMAL) Differential, Automated (08/07/2017 7:30 AM EST) Patholo gist Method Time Signature Neutrophils % 73.8 % [facility] Neutr Abs (ANC) 7.17 (H) 1.70 - [facility] 6.10 [facility] x10(3)/[facility] LABORATORY Lymphocytes % 12.2 % [facility]ORY Lymphocytes Abs 1.2 0.9 - 3.2 [facility] x10(3)/[facility] LABORATORY Monocytes % 9.0 % [facility] Monocyte Abs 0.9 0.3 - 0.9 [facility] x10(3)/[facility] LABORATORY Eosinophils % 3.9 % [facility] Eosinophils Abs 0.4 0.0 - 0.4 [facility] x10(3)/[facility] LABORATORY Basophils % 0.6 % [facility] Basophils Abs 0.1 0.0 - 0.1 [facility] x10(3)/[facility] LABORATORY Immature Gran % 0.50 % [...] Organization Address City/State/[place] [address] (ABNORMAL) Hemogram (08/07/2017 7:30 AM EST) Analysis Performed At Patho logist Time Signature WBC 9.7 (H) 4.0 - 9.5 [facility] x10(3)/[facility] LABORATORY RBC 3.54 (L) 4.58 - [facility] 5.54 [facility] x10(6)/[facility] LABORATORY Hemoglobin 9.9 (L) 13.7 - [facility] 16.[facility] gm/dL [facility] LABORATORY Hematocrit 32.3 (L) 40.5 - [facility] 48.5 % [facility] LABORATORY MCV 91.2 82.9 - [facility] 93.1 [facility] LABORATORY MCH 28.0 27.5 - [facility] 32.1 pg [facility] LABORATORY MCHC 30.7 (L) 32.0 - [facility] 35.7 gm/dL [facility] LABORATORY Platelets 312 145 - 357 [facility] x10(3)/[facility] LABORATORY RDWSD 53.2 (H) 36.0 - [facility] 45.0 [facility] LABORATORY RDWCV 16.0 (H) 11.4 - [facility] 13.8 % [facility] LABORATORY MPV 8.9 7.6 - 12.9 [facility] LABORATORY nRBC % Auto 0.0 % [facility] nRBC Abs Auto 0.000 0.000 - [facility] 0.000 [facility] x10(3)/[facility] LABORATORY Specimen Anatomical Collection Method Collection Time Receive d Time (Source) Location / / Volume Laterality Blood specimen 08/07/2017 7:30 AM 018 7:45 (specimen) EST AM EST Resulting Agency Comment Spec In Lab Yonathan Smith MD HEMATOLOGY ORDERABLES Performing Organization Address City/State/[place] [address] (ABNORMAL) Basic Metabolic Panel (non-fasting) (08/07/2017 7:30 AM EST) P athologist Signature Glucose Lvl 80 65 - 199 [facility] mg/dL [facility] [...] CHEMISTRY ORDERABLES Performing Organization Address City/[facility] Phon e Number [address] POCT Glucose (08/07/2017 7:27 AM EST) athologist Signature POC Glucose 81 65 - 199 [facility] mg/dL [facility] [...] ORDERABLE S Performing Organization Address [facility] Phon e Number [address] APTT (08/07/2017 7:04 AM [...] City/[facility]/[place] [address] (ABNORMAL) Prothrombin Time (08/07/2017 7:04 AM EST) athologist Signature PT 17.3 (H) 11.8 - 14.0 [facility] LABORATORY INR 1.4 (H) [...] Organization Address City/State/[place] [address] POCT Glucose (08/07/2017 4:03 AM EST) athologist Signature POC Glucose 93 65 - 199 [facility] mg/dL [facility] - [...] Organization Address City/State/[place] [address] POCT Glucose (08/07/2017 12:04 AM EST) athologist Signature POC Glucose 107 65 - 199 [facility] mg/dL [facility] - [...] Address City/State/ZIP Code Phon e Number [address] POCT Glucose (08/06/2017 7:56 PM EST) P athologist Signature POC Glucose 178 65 - 199 [facility] mg/dL [facility] [...] Address City/State/ZIP Code Phon e Number [address] TcPO2 (08/06/2017 2:32 PM EST) Component Value Ref Test Analysis Performed At Patholo gist Range Method Time Signature VB Text Department: Vascular Surgery Lab VASCUBASE Report Patient: [id number] (GREGORY HOANG) CPT: 7261021 ICD10: I99.8 Referring Physician: YONATHAN SMITH ?? Indications: Patient with embolic debris s/p cath, now with blue toes on right (severe pain) and mild pain on left, needs amputation, ? ternt ayala potential Diabetes mellitus: No ICD10 Diagnosis [...] Chiquis Mcgrath RN) 0807 (Given - Provider: Cihquis Mcgrath RN) 0800 [...] 0454 (Given - P rovider: Henrique Marks RN)0868 (Given - Provider: Chiquis Mcgrath RN)1135 (Given [...]
Routine documented in this encounter Care Teams Outside Event Sales Specialist Relationship Specialty Start Date End Date Lovely Vicente MD PCP - General 04/16/[address] [place] [address] [address] [place] [address] documented as of this encounter
--- OUTSIDE RECORDS SUMMARY | 2022-04-22 08:20 | XMS_ITS | Encounter Summary ---
:1945 Author Organization [facility] [place] [address] Care Team Providers Name Role Phone Lovely Vicente MD Primary Care Provider Encounter Details Date Type Department Care Team Description 08/09/2017 Clinical [place] [facility] [place] (D-SCHED ERROR [facility] / CORRECT ION ) [place] [address] Social History Tobacco Use Types Packs/Day [...] MD [facility] [place] [address] (Wo rk) 05/28/2022 Laboratory Appointment Lab 05/28/2022 Office Visit Cardiology Zulma Dolan MD [facility] [place] [address] Liz Poole PA [facility] [place] [address] 06/10/2022 Office Visit Dermatology Laura Scherer MD [facility] [address], [place] [address] (Wo rk) documented as of this encounter Procedures Procedure Name Priority Date/Time Associated Diagnosis Comme nts WOOD SCRAP HANDLER 08/09/2017 12:00 AM Resul ts for this SCAN EST procedure are i n the results section. documented in this encounter Results SCAN DOC: WOOD SCRAP HANDLER (08/09/2017 12:00 AM EST) Narrative 08/09/2017 12:00 [...] General 04/16/[address] [place] [address] documented as of this encounter
--- OUTSIDE RECORDS SUMMARY | 2022-04-22 08:20 | XMS_ITS | Encounter Summary ---
:1945 Author Organization [facility] [place] [address] Care Team Providers Name Role Phone Lovely Vicente MD Primary Care Provider Reason for Visit Auth/Cert Specialty Diagnoses / Procedures Referred By Contact Refer red To Contact Diagnoses Critical lower limb ischemia CELLULITIS RT FOOT Procedures EMERGENCY Referral ID Status Reason Start Date Expiration Date Visits Requ ested Visits Authorized [id number] 1 1 Encounter Details Date Type Department Care Team Description 08/11/2017 Surgery Main Operating Room Yonathan Smith (M SURG) DRESSING CHANGE Barbara Ocampo MD (FOR OTHER THAN IVAN) [facility] UNDER ANES. 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 0.94 ??Rogers-Biphasic ? Posterior Tibial (Ankle) Artery ??154 ? 1.10 ??Rogers-Biphasic ? Fourth Toe ? 67 ?0.48 ?? [...] For any problems or questions please call [phone] ZELDA Smith, fireperson Nurse Clinician For issues on weeknights after 5pm and weekends please call [phone] and ask for the Vascular Fellow delivery professional. General Instructions None Future Appointments and Orders Future Appointments Provider Department Dept Phone 08/26/2017 4:00 PM Aurelia Rivera PA [facility] [place] [phone] 09/07/2017 3:00 PM LAB, THREE L Lab 3L [facility] [phone] 09/07/2017 4:00 PM Luz Prescott MD Endocrinology at [place] [phone] 09/09/2017 8:00 AM Barbra Soares APRN [facility] Management [facility] [place] [phone] Please bring a list of your current [...] For any problems or questions please call [phone] ZELDA Smith, fireperson Nurse Clinician For issues on weeknights after 5pm and weekends please call [phone] and ask for the Vascular Fellow delivery professional. documented in this encounter Medications at [...] Discharge Note Patient Destination: [facility] ([facility]) [address] [place] [id number] Transportation: with (at bedside) Time of Discharge: by 12 noon Level of Care: swing Patient Aware: yes Family Notified: yes Md to call report to: Yissel Quintero SALES ORDER CLERK already called RN to call report to: [phone] Shirin Wolf Office of Care Management Pager [phone] Shirin Wagner RN - 08/16/2017 10:50 AM EST [facility] has offered pt swing bed. Pt and accept bed. will transport via car. SALES ORDER CLERK Yissel Quintero aware; d/c paperwork will be completed by 12 noon. [facility] requests pt arrival by 1400 today; SALES ORDER CLERK, RN, and family aware. SALES ORDER CLERK called [facility] and was told that they prefer pt to arrive with wound vac dressing applied but clamped. SALES ORDER CLERK applied new wound vac dressing. RN has [facility] number to call report. PASSR completed; SALES ORDER CLERK paged to request provider signature in highlighted space. Indigo from [facility] notified via email that home wound vac now cancelled; [facility]OR[facility] has picked up from room and order cancelled. Packet started and provided to cardiac care unit nurse. Medicare important message explained to patient, patient signed. Copy provided to patient and signature page to OCM for inclusion in pt EMR. Radha Georges - 08/16/2017 10:34 AM EST Office of Care Management/Cargo Handler Patient Name: Gregory Hoang : 1945 Patient has been offered a swing bed at [facility]. The patient will be transported by private transportation. No MD to MD report necessary Please call Nursing Report to [phone], ask for prototype engineer. Info to accompany patient: Narcotic Prescriptions Copies of Medication Administration Records and IV sheets for past 10 days. Plan: Cargo Handler will be available to the patient and Small Stock Facer-RN and/or Residential Worker for further assistance. Patient will be discharged to: [facility] [address] [place] [id number] Radha Powers, Cargo Handler Mira Black, VAMSI - 08/15/2017 10:05 PM EST [address] Flores to ask if he wanted to hold metoprolol dose. BP 95/58. OK to hold this dose Courtney Brito - 08/15/2017 3:26 PM EST Office of Care Management(OCM)/Cargo Handler(RS)/ D/C Planning re : Patient is [...] status. CM Notified RS: Courtney Suazo Pager [phone] Viry Starkey MD - 08/15/2017 10:01 AM [...] New Imaging ?? None new Assessment: Gregory Haong is a 72 y.o. 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 Vac in [...] about patient's referral to: [facility] PHONE: [phone] FAX: [phone] CM spoke with RS who said that [...] rehab. Await recommendations from PT. Covering pager #[phone]. Viry Starkey MD - 08/14/2017 10:08 AM [...] New Imaging ?? None new Assessment: Gregory oHang is a 72 y.o. male with a history of HTN, hyperlipidemia, DM, AF on coumdadin, MARIA VICTORIA (on CPAP), CABG x3 on 07/07/2017 postop course comlicated by right sided blue toe syndrome (possibly from a right CRYPTOGRAPHIC MACHINE OPERATOR PSA which has since thrombosed), [...] do rehab instead of going home with [facility]. Chief Load Dispatcher Kaitlin Saha, RN Pager #[phone] Payam Rosales - 08/13/2017 2:37 PM EST Smoking Pipe Mounter Encounter Note Patient Name: Gregory Hoang : [id number] MR#: [id number] Admit Date: 08/06/2017 1:41 PM Hospital Day 7 days Narrative: Visited to introduce and assess acceptance of Smoking Pipe Mounter services. Pt was awake, alert, oriented and in chair and family was there. Assessment:Patient coping positively with stresses of illness/hospitalization at this time. Pt says that he is hoping to get better and his family was there. Pt says that he has family care and supportand taking one day at time. Intervention and Outcome: Provided emotional support and encouraging presence. Smoking Pipe Mounter services accepted.Conversation to build trusting relationship.Provided pastoral [...] blue toe syndrome (possibly from a right CRYPTOGRAPHIC MACHINE OPERATOR PSA which has since thrombosed), [...] RN - 08/12/2017 1:06 PM EST The patient/hospital sales representative has been provided a list of Home Health Agencies/DME vendors which serve their preferred geographic area. A letter describing our affiliations was reviewed with them and theywere educated about their right to choose where referrals are placed. Patient requests referral to [facility]. PHONE: [phone] FAX: [phone]. And Home NPWT (Negative Pressure Wound Therapy) aka wound vac device made available to pt. Serial # confirmed. Reviewed [facility] Proof of Delivery/Assignment of Benefits Statement(POD/AOB) Form w patient or authorized agent signing on behalf of patient. Copy of POD/AOB provided to pt and other copy faxed to [employer] @ fax# [phone] Expected date of discharge: 08/12/2017. Referral routed to the Cargo Handler for matching with agency/vendor and to [...] blue toe syndrome (possibly from a right CRYPTOGRAPHIC MACHINE OPERATOR PSA which has since thrombosed), [...] blue toe syndrome (possibly from a right CRYPTOGRAPHIC MACHINE OPERATOR PSA which has since thrombosed), [...] : 1945 AGE 72 y.o. Address: [address] [place] [address] [place] [address] (home) Mobile: Telephone Information: Referring Provider: No [...] performed by Manny Mcknight MD at [facility] ??? PRO CABG, ARTERIAL, SINGLE N/A 07/07/2017 @CABG, USING ARTERIAL GRAFT;SINGLE ARTERIAL GRAFT (WRVU 33.75) performed by Yuan Retana MD at [facility] ??? PRO CABG, ARTERY-VEIN, TWO N/A 07/07/2017 @CABG, TWO VENOUS GRAFTS & ARTERIAL GRAFT (WRVU 7.93) performed by Yuan Retana MD at [facility] OR ??? PRO COLONOSCOPY, REMV LESN, SNARE 01/16/2014 COLONOSCOPY, POLYPECTOMY, REMOVAL LESION BY SNARE performed by Nohemi Jaimes MD at [facility] ENDOSCOPY ??? PRO ENDOSCOPY W/VIDEO-ASST VEIN HARVEST, CABG Right 07/07/2017 ENDOSCOPIC HARVEST VEIN(S) FOR CABG (WRVU 0.31) performed by Yuan Retana MD at [facility] ??? PRO THYROIDECTOMY 03/28/2013 THYROIDECTOMY, TOTAL OR COMPLETE performed by Manny Mcknight MD at [facility] Date/Procedure Med's given/comments 08/10/17 RLE angio with multiple ADMINISTRATIVE SERVICES SPECIALIST to R posterior tibial artery Fentanyl [...] blue toe syndrome (possibly from a right CRYPTOGRAPHIC MACHINE OPERATOR PSA which has since thrombosed), [...] Pt taken for angiogram via transport on [facility]. Heparin gtt continues to run. Pt [...] : 1945 AGE 72 y.o. Address: [address] [place] [address] [place] [address] (home) Mobile: Telephone Information: Referring Provider: No [...] performed by Manny Mcknight MD at [facility] ??? PRO CABG, ARTERIAL, SINGLE N/A 07/07/2017 @CABG, USING ARTERIAL GRAFT;SINGLE ARTERIAL GRAFT (WRVU 33.75) performed by Yuan Retana MD at [facility] ??? PRO CABG, ARTERY-VEIN, TWO N/A 07/07/2017 @CABG, TWO VENOUS GRAFTS & ARTERIAL GRAFT (WRVU 7.93) performed by Yuan Retana MD at [facility] OR ??? PRO COLONOSCOPY, REMV LESN, SNARE 01/16/2014 COLONOSCOPY, POLYPECTOMY, REMOVAL LESION BY SNARE performed by Nohemi Jaimes MD at [facility] ENDOSCOPY ??? PRO ENDOSCOPY W/VIDEO-ASST VEIN HARVEST, CABG Right 07/07/2017 ENDOSCOPIC HARVEST VEIN(S) FOR CABG (WRVU 0.31) performed by Yuan Retana MD at [facility] ??? PRO THYROIDECTOMY 03/28/2013 THYROIDECTOMY, TOTAL OR COMPLETE performed by Manny Mcknight MD at [facility] Date/Procedure Meds given/comments No [...] blue toe syndrome (possibly from a right CRYPTOGRAPHIC MACHINE OPERATOR PSA which has since thrombosed), [...] draw at 0045. Unsuccessful draw attempt, another furnace operator and tender will come [facility] to collect blood for PTT [...] blue toe syndrome (possibly from a right CRYPTOGRAPHIC MACHINE OPERATOR PSA which has since thrombosed), [...] lab, pt blood glucose 229. Vascular resident delivery professional and will forward result to the team prior to rounds. 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 PRO CABG, ARTERIAL, SINGLE N/A 07/07/2017 @CABG, USING ARTERIAL GRAFT;SINGLE ARTERIAL GRAFT (WRVU 33.75) performed by Yuan Retana MD at [facility] ??? PRO CABG, ARTERY-VEIN, TWO N/A 07/07/2017 @CABG, TWO VENOUS GRAFTS & ARTERIAL GRAFT (WRVU 7.93) performed by Yuan Retana MD at [facility] ??? PRO COLONOSCOPY, REMV LESN, SNARE 01/16/2014 COLONOSCOPY, POLYPECTOMY, REMOVAL LESION BY SNARE performed by Nohemi Jaimes MD at [facility] ENDOSCOPY ??? PRO ENDOSCOPY W/VIDEO-ASST VEIN HARVEST, CABG Right 07/07/2017 ENDOSCOPIC HARVEST VEIN(S) FOR CABG (WRVU 0.31) performed by Yuan Retana MD at [facility] ??? PRO THYROIDECTOMY 03/28/2013 THYROIDECTOMY, TOTAL OR COMPLETE performed by Manny Mcknight MD at [facility] Functional Status/Social Hx: Quit [...] left blue toes with CTA showing R CRYPTOGRAPHIC MACHINE OPERATOR pseudoaneurysm (now thrombosed) and occluded [...] 2.5x80 5. Completion RLE angiogram 6. L CRYPTOGRAPHIC MACHINE OPERATOR angiogram 7. Mynx closure Surgeons: [...] blue toe syndrome (possibly from a right CRYPTOGRAPHIC MACHINE OPERATOR PSA which has since thrombosed), [...] - RLE angiogram demonstrated: Widely patent R CRYPTOGRAPHIC MACHINE OPERATOR with small amount of flow [...] on the foot via collaterals. - L CRYPTOGRAPHIC MACHINE OPERATOR angriogram demonstrated: High femoral bifurcation over the proximal half of the femoral head. L CRYPTOGRAPHIC MACHINE OPERATOR access in the distal L CRYPTOGRAPHIC MACHINE OPERATOR. - Closure device: Mynx Technical [...] for a 45cm 5F Destination. V18 and Excel and QuickCross catheters were used to select [...] 5F. A stationed picture of the L CRYPTOGRAPHIC MACHINE OPERATOR was performed as the patient was noted to have a very high bifurcation. Access appeared in the distal R CRYPTOGRAPHIC MACHINE OPERATOR. Closure and sheath removal was [...] PM EST 1440 report called to 5 [place] nurse Tessa AGUSTIN documented in this encounter Miscellaneous Notes Plan of Care - Dory Truong RN - 08/16/2017 10:51 AM EST Problem: Patient Care Overview Goal: Plan of Care Review Outcome: Outcome (s) achieved Date Met: 08/16/17 08/14/17 1939 08/16/17 8221 Coping/Psychosocial Plan Of Care Reviewed With -- [...] sit/sit to supine -- Bed Mobility Goal, [place] Level independent -- Bed Mobility Goal, Date [...] days -- Transfer Training Goal, Activity Type luk-xl-nfzgl/spjoz-db-gjq -- Transfer Train Goal, [place] Level conditional independence -- Transfer Train Goal, [...] call cabello within reach, Hourly rounding by RN/BLEND PLANT OPERATOR. Bed alarm / Chair alarm. Patient-specific [...] Smith MD - 08/15/2017 6:28 PM EST [facility] Operative Note Patient Name: Gregory Hoang : [id number] MR#: [id number] Case Date: 08/09/2017 Surgeon: Surgeon(s) and Role: [...] 2.5x80 5. Completion RLE angiogram 6. L CRYPTOGRAPHIC MACHINE OPERATOR angiogram 7. Mynx closure Precautions/Restrictions: [...] feet/ bed -> bathroom). Anticipated Discharge Disposition: alf facility, other (see comments) (or swing bed) Pager: [phone] BASSAM ELIAS, PT 08/14/2017 Inpatient Physical Therapy [...] to Achieve by discharge Gait Training Goal, [place] Level conditional independence;set up required Gait Training [...] CM spoke with [facility] KANWAL Sandhu RN who said that they do not anticipate any beds over the weekend. Reviewed with patient/ that they need to be aware that patient will need to take the first bed offered at the facilities that they make referrals to. Their choices are: 1- [facility] PHONE: [phone] FAX: [phone] 2- [facility] ([facility]) [address] [place] [address] 3- [facility])([facility]) [address] [place] [address] I have discussed Medicare/Private Insurance [...] RS/CM on Wednesday to follow-up. Covering pager #[phone] for today. Plan of Care - Henrique [...] with additional findings of pseudoaneurysm on R CRYPTOGRAPHIC MACHINE OPERATOR and bilateral anterior tibial artery [...] an outpatient once discharged. Have patient call [phone] to set up an appointment. Follow-up: Dermatology will sign-off for now. Please do not hesitate to contact us if you have any questions orconcerns. Impression and Recommendations discussed with primary team on 08/13/2017. Karo Henderson MD Resident in Dermatology Section of Dermatology, Department of Surgery [facility] Pager [phone] Patient seen and evaluated with staff Radiology Physician: Halima Cordero MD Section of Dermatology [facility] Level of Resident Supervision: Direct Supervision (The [...] 2.5x80 5. Completion RLE angiogram 6. L CRYPTOGRAPHIC MACHINE OPERATOR angiogram 7. Mynx closure Active [...] home with home health ([facility] PT[facility]OT) Pager: [phone] YASIR TELLO OT 08/12/2017 Occupational Therapy Rehabilitation [...] 2.5x80 5. Completion RLE angiogram 6. L CRYPTOGRAPHIC MACHINE OPERATOR angiogram 7. Mynx closure Past [...] with 24/7 assistance and maximal services) Pager: [phone] NICHOLAS MORA, JESSIE 08/12/2017 Physical Therapy Rehabilitation [...] sit/sit to supine -- Bed Mobility Goal, [place] Level independent -- Bed Mobility Goal, Outcome Achieved -- goal ongoing Goal: Gait Training Goal Stand Alone Therapy Goal Outcome: Ongoing (Interventions Implemented as Appropriate) 08/11/17 1310 08/12/17 1510 Gait Training Goal Gait Training Goal, Date Established 08/11/17 -- Gait Training Goal, Time to Achieve 5 - 7 days -- Gait Training Goal, [place] Level conditional independence -- Gait Training Goal, [...] days -- Transfer Training Goal, Activity Type vmk-ip-xwnah/bzmfl-cr-nbu -- Transfer Train Goal, [place] Level conditional independence -- Transfer Training Goal, [...] Smith MD - 08/11/2017 2:52 PM EST [facility] Operative Note Patient Name: Gregory Hoang : [id number] MR#: [id number] Case Date: 08/11/2017 Surgeon: Surgeon(s) and Role: [...] blue toe syndrome (possibly from a right CRYPTOGRAPHIC MACHINE OPERATOR PSA which has since thrombosed), [...] 2.5x80 5. Completion RLE angiogram 6. L CRYPTOGRAPHIC MACHINE OPERATOR angiogram 7. Mynx closure He [...] Anticipated Discharge Disposition: inpatient rehabilitation facility Pager: [phone] LAWRENCE GONZALEZ, PT 08/11/2017 Physical Therapy Rehabilitation [...] to sit/sit to supine Bed Mobility Goal, [place] Level independent Goal: Gait Training Goal Stand Alone Therapy Goal Outcome: Ongoing (Interventions Implemented as Appropriate) 08/11/17 1310 Gait Training Goal Gait Training Goal, Date Established 08/11/17 Gait Training Goal, Time to Achieve 5 - 7 days Gait Training Goal, [place] Level conditional independence Gait Training Goal, Assist [...] 7 days Transfer Training Goal, Activity Type wpc-xy-vtvxy/aoees-im-lqv Transfer Train Goal, [place] Level conditional independence Plan of Care - [...] call cabello within reach, Hourly rounding by RN/BLEND PLANT OPERATOR. Bed alarm / Chair alarm. ? [...] 04/05/2013 Hospitalizations Within the Past 30 Days: [facility] 07/20/2017 Anticipated Length Of Stay (If known): Expected Length of Hospitalization: 5-7 days2-3 days Current Decision-Making Capacity: Alert and oriented x 4 Advance Care Planning: on file Kisha Hoang [facility] [phone] Current Coping/Education/Information Needs: pt and spouse state [...] Health/Prescription Coverage: Primary Insurance: MEDICARE Secondary Insurance: [employer] [place] Prescription Coverage: See above Preferred Pharmacy: [facility] Other: N/A Primary Care Provider: Lovely Vicente MD [phone] Patient/Caregiver Goals of Treatment: Patient plans to [...] of care planning. Kaitlin Saha RN Pager: [phone] Plan of Care - Melba Jaramillo RN [...] Overview Goal: Plan of Care Review 08/08/17 6404 Coping/Psychosocial Plan Of Care Reviewed With patient [...] call cabello within reach, Hourly rounding by RN/BLEND PLANT OPERATOR. Bed alarm / Chair alarm. Patient-specific [...] at bedside and MD TEAM Carrying pager [phone] contacted (via Radio page) and notified of [...] Zulma Dolan MD [facility] [place], [place] [address] (Wo rk) 05/28/2022 Laboratory Appointment Lab 05/28/2022 Office Visit Cardiology Zulma Dolan MD [facility] [place] [address] Liz Poole PA [facility] [place] [address] 06/10/2022 Office Visit Dermatology Laura Scherer MD [facility] [address] [place], [place] [address] (Wo rk) documented as of [...] 160 65 - 199 [place] mg/dL [facility] Comment: Supplemental ranges: <140 mg/dL before meals <180 mg/dL all other times of the day Specimen Anatomical Collection Method Collection Time Receive d Time (Source) Location / / Volume Laterality Blood specimen 08/16/2017 7:28 AM 018 7:28 (specimen) EST AM EST Yonathna Smith MD POINT OF CARE TEST ORDERABLE S Performing Organization Address City/State/Z[place] [address] (ABNORMAL) Differential, Automated (08/16/2017 5:08 AM EST) [facility] Method Time Signature Neutrophils % 73.9 % [facility] Neutr Abs (ANC) 5.37 1.70 - [facility] 6.10 [facility] x10(3)/[facility] LABORATORY Lymphocytes % 10.1 % [facility] Lymphocytes Abs 0.7 (L) 0.9 - 3.2 [facility] x10(3)/[facility] LABORATORY Monocytes % 10.1 % [facility] Monocyte Abs 0.7 0.3 - 0.9 [facility] x10(3)/[facility] LABORATORY Eosinophils % 5.1 % [facility] Eosinophils Abs 0.4 0.0 - 0.4 [facility] x10(3)/[facility] LABORATORY Basophils % 0.4 % [facility] Basophils Abs 0.0 0.0 - 0.1 [facility] x10(3)/[facility] LABORATORY Immature Gran % 0.40 % [...] 0.00 - 0.04 x10(3)/[facility]ORY Specimen Anatomical Collection Method Collection Time Receive d Time (Source) Location / / Volume Laterality Blood specimen 08/16/2017 5:08 AM 018 5:20 (specimen) EST AM EST Resulting Agency Comment Spec In Lab Yonathan Smith MD HEMATOLOGY ORDERABLES Performing Organization Address City/State/[place] [address] (ABNORMAL) Hemogram (08/16/2017 5:08 AM EST) Analysis Performed At Patho logist Time Signature WBC 7.3 4.0 - 9.5 [place] x10(3)/[facility] LABORATORY RBC 3.36 (L) 4.58 - [place] 5.54 [facility] x10(6)/[facility] LABORATORY Hemoglobin 9.7 (L) 13.7 - [facility] 16.5 gm/dL [facility] Hematocrit 30.3 (L) 40.5 - [place] 48.5 % [facility] MCV 90.2 82.9 - [facility] RYAN 93.1 [facility] LABORATORY MCH 28.9 27.5 - [place] 32.1 pg [facility] MCHC 32.0 32.0 - [place] 35.7 gm/dL [facility] Platelets 282 145 - 357 [facility] LABORATORY RDWSD 53.9 (H) 36.0 - [place] 45.0 [facility] LABORATORY RDWCV 16.5 (H) 11.4 - [place] 13.8 % [facility] MPV 9.0 7.6 - 12.9 [place] [facility] LABORATORY nRBC % Auto 0.0 % [facility] nRBC Abs Auto 0.000 0.000 - [place] 0.000 [facility] x10(3)/[facility] LABORATORY Specimen Anatomical Collection Method Collection Time Receive d Time (Source) Location / / Volume Laterality Blood specimen 08/16/2017 5:08 AM 018 5:20 (specimen) EST AM EST Resulting Agency Comment Spec In Lab Yonathan Smith MD HEMATOLOGY ORDERABLES Performing Organization Address City/State/ZIP Code Phon e Number [place] [id number] (ABNORMAL) Basic Metabolic Panel (non-fasting) (08/16/2017 5:08 AM EST) P athologist Signature Glucose Lvl 141 65 - 199 [facility] mg/dL [facility] Comment: Diabetes: >=200 mg/dL plus [...] or in patients with acute kidney failure. http://Tradeos/DHnkdep http://Tradeos/DHMCnkf Specimen Anatomical Collection Method Collection Time Receive d Time (Source) Location / / Volume Laterality Blood specimen 08/16/2017 5:08 AM 018 5:20 (specimen) EST AM EST Resulting Agency Comment Spec In Lab Yonathan Smith MD CHEMISTRY ORDERABLES Performing Organization Address City/State/[place] [address] (ABNORMAL) Prothrombin Time (08/16/2017 [...] Smith MD HEMATOLOGY ORDERABLES Performing Organization Address City/[facility]/ZIP Code Phon e Number [address] POCT Glucose (08/16/2017 4:09 AM EST) athologist Signature POC Glucose 147 65 - 199 [facility] mg/dL [facility] Comment: Supplemental ranges: <140 mg/dL before meals <180 mg/dL all other times of the day Specimen Anatomical Collection Method Collection Time Receive d Time (Source) Location / / Volume Laterality Blood specimen 08/16/2017 4:09 AM 018 4:09 (specimen) EST AM EST Yonathan Smith MD POINT OF CARE TEST ORDERABLE S Performing Organization Address City/[facility]/ZIP Code Phon e Number [address] POCT Glucose (08/15/2017 11:56 PM EST) athologist Signature POC Glucose 176 65 - 199 [facility] mg[facility]dL [facility] Comment: Supplemental ranges: <140 mg/dL before meals <180 mg/dL all other times of the day Specimen Anatomical Collection Method Collection Time Receive d Time (Source) Location / / Volume Laterality Blood specimen 08/15/2017 11:56 8 (specimen) PM EST 11:56 PM EST Yonathan Smith MD POINT OF CARE TEST ORDERABLE S Performing Organization Address City/[facility]/ZIP Code Phon e Number [address] POCT Glucose (08/15/2017 8:05 PM EST) athologist Signature POC Glucose 136 65 - 199 [place] mg/dL [facility] Comment: Supplemental ranges: <140 mg/dL before meals <180 mg/dL all other times of the day Specimen Anatomical Collection Method Collection Time Receive d Time (Source) Location / / Volume Laterality Blood specimen 08/15/2017 8:05 PM 018 8:05 (specimen) EST PM EST Yonathan Smith MD POINT OF CARE TEST ORDERABLE S Performing Organization Address City/State/[place] [address] (ABNORMAL) POCT Glucose (08/15/2017 4:50 PM EST) athologist Signature POC Glucose 232 (H) 65 - 199 [facility] mg/dL [facility] Comment: Supplemental ranges: <140 mg/dL before meals <180 mg/dL all other times of the day Specimen Anatomical Collection Method Collection Time Receive d Time (Source) Location / / Volume Laterality Blood specimen 08/15/2017 4:50 PM 018 4:50 (specimen) EST PM EST Yonathan Smith MD POINT OF CARE TEST ORDERABLE S Performing Organization Address City/State/[place] [address] POCT Glucose (08/15/2017 12:04 PM EST) athologist Signature POC Glucose 135 65 - 199 [place] mg/dL [facility] Comment: Supplemental ranges: <140 mg/dL before meals <180 mg/dL all other times of the day Specimen Anatomical Collection Method Collection Time Receive d Time (Source) Location / / Volume Laterality Blood specimen 08/15/2017 12:04 8 (specimen) PM EST 12:04 PM EST Yonathan Smith MD POINT OF CARE TEST ORDERABLE S Performing Organization Address City/State/[place] [address] POCT Glucose (08/15/2017 7:36 AM EST) P athologist Signature POC Glucose 124 65 - 199 [facility] mg/dL [facility] Comment: Supplemental ranges: <140 mg/dL before meals <180 mg/dL all other times of the day Specimen Anatomical Collection Method Collection Time Receive d Time (Source) Location / / Volume Laterality Blood specimen 08/15/2017 7:36 AM 018 7:36 (specimen) EST AM EST Yonathan Smith MD POINT OF CARE TEST ORDERABLE S Performing Organization Address City/State/Z[place] [address] (ABNORMAL) Differential, Automated (08/15/2017 6:22 AM EST) Patholo gist Method Time Signature Neutrophils % 76.1 % [facility] LABORATORY Neutr Abs (ANC) 6.62 (H) 1.70 - [facility] 6.10 [facility] x10(3)/[facility] L LABORATORY Lymphocytes % 9.3 % [facility] LABORATORY Lymphocytes Abs 0.8 (L) 0.9 - 3.2 [facility] x10(3)/[facility] LABORATORY Monocytes % 9.4 % [facility] LABORATORY Monocyte Abs 0.8 0.3 - 0.9 [facility] x10(3)/[facility] LABORATORY Eosinophils % 4.0 % [facility] LABORATORY Eosinophils Abs 0.4 0.0 - 0.4 [facility] x10(3)/[facility] LABORATORY Basophils % 0.6 % [facility] LABORATORY Basophils Abs 0.0 0.0 - 0.1 [facility] x10(3)/[facility] LABORATORY Immature Gran % [...] Organization Address City/State/[place] [address] (ABNORMAL) Hemogram (08/15/2017 6:22 AM EST) Analysis Performed At Patho logist Time Signature WBC 8.7 4.0 - 9.5 [facility] x10(3)/[facility] LABORATORY RBC 3.21 (L) 4.58 - [facility] 5.54 [facility] x10(6)/[facility] LABORATORY Hemoglobin 9.1 (L) 13.7 - [facility] 16.5 gm/dL [facility] Hematocrit 29.0 (L) 40.5 - [facility] 48.5 % [facility] MCV 90.3 82.9 - [facility] 93.1 [facility] LABORATORY MCH 28.3 27.5 - [facility] RYAN 32.1 pg [facility] MCHC 31.4 (L) 32.0 - [facility] 35.7 gm/dL [facility] Platelets 254 145 - 357 [facility] x10(3)/[facility] LABORATORY RDWSD 53.9 (H) 36.0 - [facility] RYAN 45.0 [facility] LABORATORY RDWCV 16.3 (H) 11.4 - [facility] RYAN 13.8 % [facility]ORATORY MPV 8.8 7.6 - 12.9 [facility] LABORATORY nRBC % Auto 0.0 % [facility] LABORATORY nRBC Abs Auto 0.000 0.000 - [place] 0.000 [facility] x10(3)/[facility] LABORATORY Specimen Anatomical Collection Method Collection Time Receive d Time (Source) Location / / Volume Laterality Blood specimen 08/15/2017 6:22 AM 018 6:33 (specimen) EST AM EST Resulting Agency Comment Spec In Lab Yonathan Smith MD HEMATOLOGY ORDERABLES Performing Organization Address City/State/[place] [address] (ABNORMAL) Basic Metabolic Panel (non-fasting) (08/15/2017 6:22 AM EST) P athologist Signature Glucose Lvl 118 65 - 199 [facility] mg/dL [facility] Comment: Diabetes: >=200 mg/dL plus [...] or in patients with acute kidney failure. [email or web address].[email or web address] [email or web address] Specimen Anatomical Collection Method Collection Time Receive d Time (Source) Location / / Volume Laterality Blood specimen 08/15/2017 6:22 AM 018 6:33 (specimen) EST AM EST Resulting Agency Comment Spec In Lab Yonathan Smith MD CHEMISTRY ORDERABLES Performing Organization Address City/State/[place] [address] (ABNORMAL) Prothrombin Time (08/15/2017 [...] Smith MD HEMATOLOGY ORDERABLES Performing Organization Address City/[facility]/[place] [address] POCT Glucose (08/15/2017 4:33 AM EST) athologist Signature POC Glucose 164 65 - 199 [facility] mg/dL [facility] Comment: Supplemental ranges: <140 mg/dL before meals <180 mg/dL all other times of the day Specimen Anatomical Collection Method Collection Time Receive d Time (Source) Location / / Volume Laterality Blood specimen 08/15/2017 4:33 AM 018 4:33 (specimen) EST AM EST Yonathan Smith MD POINT OF CARE TEST ORDERABLE S Performing Organization Address City/State/[place] [address] POCT Glucose (08/15/2017 12:12 AM EST) athologist Signature POC Glucose 89 65 - 199 [facility] mg/dL [facility] Comment: Supplemental ranges: <140 mg/dL before meals <180 mg/dL all other times of the day Specimen Anatomical Collection Method Collection Time Receive d Time (Source) Location / / Volume Laterality Blood specimen 08/15/2017 12:12 8 (specimen) AM EST 12:12 AM EST Yonathan Smith MD POINT OF CARE TEST ORDERABLE S Performing Organization Address City/State/[place] [address] (ABNORMAL) POCT Glucose (08/14/2017 8:07 PM EST) athologist Signature POC Glucose 204 (H) 65 - 199 [place] mg/dL [facility] Comment: Supplemental ranges: <140 mg/dL before meals <180 mg/dL all other times of the day Specimen Anatomical Collection Method Collection Time Receive d Time (Source) Location / / Volume Laterality Blood specimen 08/14/2017 8:07 PM 018 8:07 (specimen) EST PM EST Yonathan Smith MD POINT OF CARE TEST ORDERABLE S Performing Organization Address City/State/[place] [address] POCT Glucose (08/14/2017 5:11 PM EST) athologist Signature POC Glucose 174 65 - 199 [place] mg/dL [facility] Comment: Supplemental ranges: <140 mg/dL before meals <180 mg/dL all other times of the day Specimen Anatomical Collection Method Collection Time Receive d Time (Source) Location / / Volume Laterality Blood specimen 08/14/2017 5:11 PM 018 5:11 (specimen) EST PM EST Yonathan Smith MD POINT OF CARE TEST ORDERABLE S Performing Organization Address City/State/[place] [address] POCT Glucose (08/14/2017 12:10 PM EST) athologist Signature POC Glucose 141 65 - 199 [place] mg/dL [facility] Comment: Supplemental ranges: <140 mg/dL before meals <180 mg/dL all other times of the day Specimen Anatomical Collection Method Collection Time Receive d Time (Source) Location / / Volume Laterality Blood specimen 08/14/2017 12:10 8 (specimen) PM EST 12:10 PM EST Yonathan Smith MD POINT OF CARE TEST ORDERABLE S Performing Organization Address City/State/[place] [address] POCT Glucose (08/14/2017 8:07 AM EST) P athologist Signature POC Glucose 158 65 - 199 [facility] mg/dL [facility] Comment: Supplemental ranges: <140 mg/dL before meals <180 mg/dL all other times of the day Specimen Anatomical Collection Method Collection Time Receive d Time (Source) Location / / Volume Laterality Blood specimen 08/14/2017 8:07 AM 018 8:07 (specimen) EST AM EST Yonathan Smith MD POINT OF CARE TEST ORDERABLE S Performing Organization Address City/State/[place] [address] (ABNORMAL) Differential, Automated (08/14/2017 4:52 AM EST) Patholo gist Method Time Signature Neutrophils % 78.6 % [facility] LABORATORY Neutr Abs (ANC) 7.70 (H) 1.70 - [facility] 6.10 [facility] x10(3)/[facility] L LABORATORY Lymphocytes % 7.8 % [facility] LABORATORY Lymphocytes Abs 0.8 (L) 0.9 - 3.2 [facility] x10(3)/[facility] LABORATORY Monocytes % 8.8 % [facility] LABORATORY Monocyte Abs 0.9 0.3 - 0.9 [facility] x10(3)/[facility] LABORATORY Eosinophils % 4.0 % [facility] LABORATORY Eosinophils Abs 0.4 0.0 - 0.4 [facility] x10(3)/[facility] LABORATORY Basophils % 0.5 % [facility] LABORATORY Basophils Abs 0.0 0.0 - 0.1 [facility] x10(3)/[facility] LABORATORY Immature Gran % [...] 0.00 - 0.04 x10(3)/[facility] MAR Y [facility] LABORATORY Specimen Anatomical Collection Method Collection Time Receive d Time (Source) Location / / Volume Laterality Blood specimen 08/14/2017 4:52 AM 018 5:08 (specimen) EST AM EST Resulting Agency Comment Spec In Lab Yonathan Smith MD HEMATOLOGY ORDERABLES Performing Organization Address City/State/[place] [address] (ABNORMAL) Hemogram (08/14/2017 4:52 AM EST) Analysis Performed At Patho logist Time Signature WBC 9.8 (H) 4.0 - 9.5 [facility] x10(3)/[facility] LABORATORY RBC 3.32 (L) 4.58 - [facility] 5.54 [facility] x10(6)/[facility] LABORATORY Hemoglobin 9.5 (L) 13.7 - [facility] 16.5 gm/dL [facility] Hematocrit 30.3 (L) 40.5 - [facility] 48.5 % [facility] MCV 91.3 82.9 - [facility] 93.1 [facility] LABORATORY MCH 28.6 27.5 - [facility] RYAN 32.1 pg [facility] MCHC 31.4 (L) 32.0 - [facility] 35.7 gm/dL [facility] Platelets 263 145 - 357 [facility] x10(3)/[facility] LABORATORY RDWSD 54.8 (H) 36.0 - [place] 45.0 [facility] LABORATORY RDWCV 16.5 (H) 11.4 - [facility] 13.8 % [facility] MPV 9.1 7.6 - 12.9 [facility] LABORATORY nRBC % Auto 0.0 % [facility] LABORATORY nRBC Abs Auto 0.000 0.000 - [facility] 0.000 [facility] x10(3)/[facility] LABORATORY Specimen Anatomical Collection Method Collection Time Receive d Time (Source) Location / / Volume Laterality Blood specimen 08/14/2017 4:52 AM 018 5:08 (specimen) EST AM EST Resulting Agency Comment Spec In Lab Yonathan Smith MD HEMATOLOGY ORDERABLES Performing Organization Address City/State/[place] [address] (ABNORMAL) Prothrombin Time (08/14/2017 [...] Organization Address City/State/[place] [address] (ABNORMAL) Basic Metabolic Panel (non-fasting) (08/14/2017 4:52 AM EST) P athologist Signature Glucose Lvl 135 65 - 199 [facility] mg/dL [facility] Comment: Diabetes: >=200 mg/dL plus [...] or in patients with acute kidney failure. http://[email or web address]/DHnkdep [email or web address]://Tradeos/DHnkf Specimen Anatomical Collection Method Collection Time Receive d Time (Source) Location / / Volume Laterality Blood specimen 08/14/2017 4:52 AM 018 5:08 (specimen) EST AM EST Resulting Agency Comment Spec In Lab Yonathan Smith MD CHEMISTRY ORDERABLES Performing Organization Address City/State/ZIP [place] [address] POCT Glucose (08/14/2017 3:56 AM EST) P athologist Signature POC Glucose 135 65 - 199 [facility] mg/dL [facility] Comment: Supplemental ranges: <140 mg/dL before meals <180 mg/dL all other times of the day Specimen Anatomical Collection Method Collection Time Receive d Time (Source) Location / / Volume Laterality Blood specimen 08/14/2017 3:56 AM 018 3:56 (specimen) EST AM EST Yonathan Smith MD POINT OF CARE TEST ORDERABLE S Performing Organization Address City/State/ZIP Code Phon e Number [address] POCT Glucose (08/13/2017 11:13 PM EST) athologist Signature POC Glucose 118 65 - 199 [place] mg/dL [facility] Comment: Supplemental ranges: <140 mg/dL before meals <180 mg/dL all other times of the day Specimen Anatomical Collection Method Collection Time Receive d Time (Source) Location / / Volume Laterality Blood specimen 08/13/2017 11:13 8 (specimen) PM EST 11:13 PM EST Yonathan Smith MD POINT OF CARE TEST ORDERABLE S Performing Organization Address City/[facility]/[place] [address] (ABNORMAL) POCT Glucose (08/13/2017 8:08 PM EST) athologist Signature POC Glucose 204 (H) 65 - 199 [place] mg/dL [facility] Comment: Supplemental ranges: <140 mg/dL before meals <180 mg/dL all other times of the day Specimen Anatomical Collection Method Collection Time Receive d Time (Source) Location / / Volume Laterality Blood specimen 08/13/2017 8:08 PM 018 8:08 (specimen) EST PM EST Yonathan Smith MD POINT OF CARE TEST ORDERABLE S Performing Organization Address City/State/[place] [address] POCT Glucose (08/13/2017 4:02 PM EST) athologist Signature POC Glucose 145 65 - 199 [place] mg/dL [facility] Comment: Supplemental ranges: <140 mg/dL before meals <180 mg/dL all other times of the day Specimen Anatomical Collection Method Collection Time Receive d Time (Source) Location / / Volume Laterality Blood specimen 08/13/2017 4:02 PM 018 4:02 (specimen) EST PM EST Yonathan Smith MD POINT OF CARE TEST ORDERABLE S Performing Organization Address City/State/[place] [address] POCT Glucose (08/13/2017 11:31 AM EST) athologist Signature POC Glucose 179 65 - 199 [facility] mg/dL [facility] Comment: Supplemental ranges: <140 mg/dL before meals <180 mg/dL all other times of the day Specimen Anatomical Collection Method Collection Time Receive d Time (Source) Location / / Volume Laterality Blood specimen 08/13/2017 11:31 8 (specimen) AM EST 11:31 AM EST Yonathan Smith MD POINT OF CARE TEST ORDERABLE S Performing Organization Address City/[facility]/[place] [address] (ABNORMAL) POCT Glucose (08/13/2017 10:16 AM EST) athologist Signature POC Glucose 211 (H) 65 - 199 [facility] mg/dL [facility] Comment: Supplemental ranges: <140 mg/dL before meals <180 mg/dL all other times of the day Specimen Anatomical Collection Method Collection Time Receive d Time (Source) Location / / Volume Laterality Blood specimen 08/13/2017 10:16 8 (specimen) AM EST 10:16 AM EST Yonathan Smith MD POINT OF CARE TEST ORDERABLE S Performing Organization Address City/[facility]/[place] [address] JULIAN, legs, multiple levels (08/13/2017 7:42 AM EST) Component Value Ref Test Analysis Performed At Patholo gist Range Method Time Signature VB Text Department: Vascular Surgery Lab VASCUBASE Report Patient: [id number] (GREGORY HOANG) CPT: 93259 ICD10: I99.8 Referring Physician: YONATHAN SMITH ?? Indications: s/p R 1,2,3 toe amps with red left foot, need n ew baseline Diabetes mellitus: yes ICD10 Diagnosis Code: I99.8 Findings: Right ?Pressure (mm Hg) ?? JULIAN ??Waveform ?TBI ?? Brachial Artery ?138 ? Dorsalis Pedis (Ankle) Arter y ?132 ? 0.94 ??Rogers- Biphasic ? Posterior Tibial (Ankle) Art anila ??154 ? 1.10 ??Rogers-Biphasic ? Fourth Toe ? 67 ? 0.48 [...] POC Glucose 156 65 - 199 [facility] mg/dL [facility] Comment: Supplemental ranges: <140 mg/dL before meals <180 mg/dL all other times of the day Specimen Anatomical Collection Method Collection Time Receive d Time (Source) Location / / Volume Laterality Blood specimen 08/13/2017 7:33 AM 018 7:33 (specimen) EST AM EST Yonathan Smith MD POINT OF CARE TEST ORDERABLE S Performing Organization Address City/State/ZIP Code Phon e Number [place] [id number] Drive (ABNORMAL) Differential, Automated (08/13/2017 5:33 AM EST) [facility] Method Time Signature Neutrophils % 77.8 % [facility] LABORATORY Neutr Abs (ANC) 7.83 (H) 1.70 - [facility] 6.10 [facility] x10(3)/[facility] L LABORATORY Lymphocytes % 8.4 % [facility] LABORATORY Lymphocytes Abs 0.8 (L) 0.9 - 3.2 [facility] x10(3)/[facility] LABORATORY Monocytes % 8.3 % [facility] LABORATORY Monocyte Abs 0.8 0.3 - 0.9 [facility] x10(3)/[facility] LABORATORY Eosinophils % 4.6 % [facility] LABORATORY Eosinophils Abs 0.5 (H) 0.0 - 0.4 [facility] x10(3)/[facility] LABORATORY Basophils % 0.5 % [facility] LABORATORY Basophils Abs 0.0 0.0 - 0.1 [facility] x10(3)/[facility] LABORATORY Immature Gran % [...] 0.04 0.00 - 0.04 x10(3)/[facility] LABORATORY Specimen Anatomical Collection Method Collection Time Receive d Time (Source) Location / / Volume Laterality Blood specimen 08/13/2017 5:33 AM 018 6:04 (specimen) EST AM EST Resulting Agency Comment Spec In Lab Yonathan Smith MD HEMATOLOGY ORDERABLES Performing Organization Address City/State/Z[place] [address] (ABNORMAL) Hemogram (08/13/2017 5:33 AM EST) Analysis Performed At Patho logist Time Signature WBC 10.1 (H) 4.0 - 9.5 [facility] x10(3)/[facility] LABORATORY RBC 3.21 (L) 4.58 - [facility] 5.54 [facility] x10(6)/[facility] LABORATORY Hemoglobin 9.2 (L) 13.7 - [facility] 16.[facility] gm/dL [facility] Hematocrit 29.6 (L) 40.5 - [facility] 48.5 % [facility] MCV 92.2 82.9 - [facility] 93.1 [facility] LABORATORY MCH 28.7 27.5 - [facility] 32.1 pg [facility] MCHC 31.1 (L) 32.0 - [facility] 35.7 gm/dL [facility] Platelets 263 145 - 357 [facility] x10(3)/[facility] LABORATORY RDWSD 54.8 (H) 36.0 - [facility] 45.0 [facility] LABORATORY RDWCV 16.4 (H) 11.4 - [facility] 13.8 % [facility]ORATORY MPV 9.2 7.6 - 12.9 [facility] LABORATORY nRBC % Auto 0.0 % [facility] LABORATORY nRBC Abs Auto 0.000 0.000 - [facility] 0.000 [facility] x10(3)/[facility] LABORATORY Specimen Anatomical Collection Method Collection Time Receive d Time (Source) Location / / Volume Laterality Blood specimen 08/13/2017 5:33 AM 018 6:04 (specimen) EST AM EST Resulting Agency Comment Spec In Lab Yonathan Smith MD HEMATOLOGY ORDERABLES Performing Organization Address City/State/[place] [address] (ABNORMAL) Prothrombin Time (08/13/2017 [...] Organization Address City/State/Z[place] [address] (ABNORMAL) Basic Metabolic Panel (non-fasting) (08/13/2017 5:33 AM EST) athologist Signature Glucose Lvl 126 65 - 199 [facility] mg/dL [facility] Comment: Diabetes: >=200 mg/dL plus [...] LABORATORY Estimated GFR >60 >=60 [facility] LABORATORY Comment: The reported eGFR should be multiplied b y 1.2 for patients. The MDRD is not an appropriate measure o f renal function for patients with body mass extremes or in patients with acute kidney failure. http://Tradeos/DHnkdep http://Tradeos/DHMCnkf Specimen Anatomical Collection Method Collection Time Receive d Time (Source) Location / / Volume Laterality Blood specimen 08/13/2017 5:33 AM 018 6:04 (specimen) EST AM EST Resulting Agency Comment Spec In Lab Yonathan Smith MD CHEMISTRY ORDERABLES Performing Organization Address City/[facility]/ZIP Code Phon e Number [address] POCT Glucose (08/13/2017 4:29 AM EST) athologist Signature POC Glucose 111 65 - 199 [facility] mg/dL [facility] Comment: Supplemental ranges: <140 mg/dL before meals <180 mg/dL all other times of the day Specimen Anatomical Collection Method Collection Time Receive d Time (Source) Location / / Volume Laterality Blood specimen 08/13/2017 4:29 AM 018 4:29 (specimen) EST AM EST Yonathan Smith MD POINT OF CARE TEST ORDERABLE S Performing Organization Address City/[facility]/ZIP Code Phon e Number [address] POCT Glucose (08/12/2017 11:28 PM EST) athologist Signature POC Glucose 164 65 - 199 [facility] mg/dL [facility] Comment: Supplemental ranges: <140 mg/dL before meals <180 mg/dL all other times of the day Specimen Anatomical Collection Method Collection Time Receive d Time (Source) Location / / Volume Laterality Blood specimen 08/12/2017 11:28 8 (specimen) PM EST 11:28 PM EST Yonathan Smith MD POINT OF CARE TEST ORDERABLE S Performing Organization Address City/[facility]/[place] [address] (ABNORMAL) POCT Glucose (08/12/2017 7:40 PM EST) athologist Signature POC Glucose 209 (H) 65 - 199 [place] mg/dL [facility] Comment: Supplemental ranges: <140 mg/dL before meals <180 mg/dL all other times of the day Specimen Anatomical Collection Method Collection Time Receive d Time (Source) Location / / Volume Laterality Blood specimen 08/12/2017 7:40 PM 018 7:40 (specimen) EST PM EST Yonathan Smith MD POINT OF CARE TEST ORDERABLE S Performing Organization Address City/State/ZIP Code Phon e Number [address] POCT Glucose (08/12/2017 4:24 PM EST) athologist Signature POC Glucose 161 65 - 199 [facility] RYAN mg/dL [facility] Comment: Supplemental ranges: <140 mg/dL before meals <180 mg/dL all other times of the day Specimen Anatomical Collection Method Collection Time Receive d Time (Source) Location / / Volume Laterality Blood specimen 08/12/2017 4:24 PM 018 4:24 (specimen) EST PM EST Yonathan Smith MD POINT OF CARE TEST ORDERABLE S Performing Organization Address City/State/[place] [address] POCT Glucose (08/12/2017 12:00 PM EST) athologist Signature POC Glucose 167 65 - 199 [place] mg/dL [facility] Comment: Supplemental ranges: <140 mg/dL before meals <180 mg/dL all other times of the day Specimen Anatomical Collection Method Collection Time Receive d Time (Source) Location / / Volume Laterality Blood specimen 08/12/2017 12:00 8 (specimen) PM EST 12:00 PM EST Yonathan Smith MD POINT OF CARE TEST ORDERABLE S Performing Organization Address City/State/[place] [address] POCT Glucose (08/12/2017 7:25 AM EST) P athologist Signature POC Glucose 152 65 - 199 [facility] mg/dL [facility] Comment: Supplemental ranges: <140 mg/dL before meals <180 mg/dL all other times of the day Specimen Anatomical Collection Method Collection Time Receive d Time (Source) Location / / Volume Laterality Blood specimen 08/12/2017 7:25 AM 018 7:25 (specimen) EST AM EST Yonathan Smith MD POINT OF CARE TEST ORDERABLE S Performing Organization Address City/State/ZIP Code Phon e Number [place] [id number] (ABNORMAL) Differential, Automated (08/12/2017 6:29 AM EST) Patholo gist Method Time Signature Neutrophils % 78.7 % [facility] LABORATORY Neutr Abs (ANC) 7.94 (H) 1.70 - [facility] 6.10 [facility] x10(3)/[facility] LABORATORY Lymphocytes % 8.8 % [facility] LABORATORY Lymphocytes Abs 0.9 0.9 - 3.2 [facility] x10(3)/[facility] LABORATORY Monocytes % 7.8 % [facility] LABORATORY Monocyte Abs 0.8 0.3 - 0.9 [facility] x10(3)/[facility] LABORATORY Eosinophils % 3.9 % [facility] LABORATORY Eosinophils Abs 0.4 0.0 - 0.4 [facility] x10(3)/[facility] LABORATORY Basophils % 0.3 % [facility] LABORATORY Basophils Abs 0.0 0.0 - 0.1 [facility] x10(3)/[facility] LABORATORY Immature Gran % [...] Organization Address City/State/ZIP [place] [address] (ABNORMAL) Hemogram (08/12/2017 6:29 AM EST) Analysis Performed At Patho logist Time Signature WBC 10.1 (H) 4.0 - 9.5 [facility] x10(3)/[facility] LABORATORY RBC 3.02 (L) 4.58 - [facility]54 [facility] x10(6)/[facility] LABORATORY Hemoglobin 8.7 (L) 13.7 - [facility] 16.5 gm/dL [facility] Hematocrit 28.1 (L) 40.5 - [facility] 48.5 % [facility] MCV 93.0 82.9 - [facility] 93.1 [facility] LABORATORY MCH 28.8 27.5 - [facility] 32.1 pg [facility] MCHC 31.0 (L) 32.0 - [facility] 35.7 gm/dL [facility] Platelets 223 145 - 357 [facility] x10(3)/[facility] LABORATORY RDWSD 56.1 (H) 36.0 - [facility] R[facility] 45.0 [facility] LABORATORY RDWCV 16.4 (H) 11.4 - [facility] 13.8 % [facility] MPV 9.0 7.6 - 12.9 [facility] LABORATORY nRBC % Auto 0.0 % [facility] LABORATORY nRBC Abs Auto 0.000 0.000 - [place] [facility] 0.000 [facility] x10(3)/[facility] LABORATORY Specimen Anatomical Collection Method Collection Time Receive d Time (Source) Location / / Volume Laterality Blood specimen 08/12/2017 6:29 AM 018 6:38 (specimen) EST AM EST Resulting Agency Comment Spec In Lab Yonathan Smith MD HEMATOLOGY ORDERABLES Performing Organization Address City/[facility]/[place] [address] (ABNORMAL) Prothrombin Time (08/12/2017 [...] Organization Address City/State/[place] [address] (ABNORMAL) Basic Metabolic Panel (non-fasting) (08/12/2017 6:29 AM EST) athologist Signature Glucose Lvl 151 65 - 199 [facility] mg/dL [facility] Comment: Diabetes: >=200 mg/dL plus [...] or in patients with acute kidney failure. http://Tradeos/DHnkdep http://Tradeos/DHMCnkf Specimen Anatomical Collection Method Collection Time Receive d Time (Source) Location / / Volume Laterality Blood specimen 08/12/2017 6:29 AM 018 6:38 (specimen) EST AM EST Resulting Agency Comment Spec In Lab Yonathan Smith MD CHEMISTRY ORDERABLES Performing Organization Address City/[facility]/[place] [address] POCT Glucose (08/12/2017 4:08 AM EST) athologist Signature POC Glucose 181 65 - 199 [facility] mg/dL [facility] Comment: Supplemental ranges: <140 mg/dL before meals <180 mg/dL all other times of the day Specimen Anatomical Collection Method Collection Time Receive d Time (Source) Location / / Volume Laterality Blood specimen 08/12/2017 4:08 AM 018 4:08 (specimen) EST AM EST Yonathan Smith MD POINT OF CARE TEST ORDERABLE S Performing Organization Address City/[facility]/[place] [address] (ABNORMAL) POCT Glucose (08/12/2017 12:17 AM EST) athologist Signature POC Glucose 221 (H) 65 - 199 [facility] mg[facility]dL [facility] Comment: Supplemental ranges: <140 mg/dL before meals <180 mg/dL all other times of the day Specimen Anatomical Collection Method Collection Time Receive d Time (Source) Location / / Volume Laterality Blood specimen 08/12/2017 12:17 8 (specimen) AM EST 12:17 AM EST Yonathan Smith MD POINT OF CARE TEST ORDERABLE S Performing Organization Address City/[facility]/[place] [address] (ABNORMAL) POCT Glucose (08/11/2017 8:52 PM EST) athologist Signature POC Glucose 221 (H) 65 - 199 [place] mg/dL [facility] Comment: Supplemental ranges: <140 mg/dL before meals <180 mg/dL all other times of the day Specimen Anatomical Collection Method Collection Time Receive d Time (Source) Location / / Volume Laterality Blood specimen 08/11/2017 8:52 PM 018 8:52 (specimen) EST PM EST Yonathan Smith MD POINT OF CARE TEST ORDERABLE S Performing Organization Address City/[facility]/[place] [address] POCT Glucose (08/11/2017 5:59 PM EST) athologist Signature POC Glucose 169 65 - 199 [place] mg/dL [facility] Comment: Supplemental ranges: <140 mg/dL before meals <180 mg/dL all other times of the day Specimen Anatomical Collection Method Collection Time Receive d Time (Source) Location / / Volume Laterality Blood specimen 08/11/2017 5:59 PM 018 5:59 (specimen) EST PM EST Yonathan Smith MD POINT OF CARE TEST ORDERABLE S Performing Organization Address City/State/[place] [address] (ABNORMAL) POCT Glucose (08/11/2017 4:08 PM EST) athologist Signature POC Glucose 240 (H) 65 - 199 [place] mg/dL [facility] Comment: Supplemental ranges: <140 mg/dL before meals <180 mg/dL all other times of the day Specimen Anatomical Collection Method Collection Time Receive d Time (Source) Location / / Volume Laterality Blood specimen 08/11/2017 4:08 PM 018 4:08 (specimen) EST PM EST Yonathan Smith MD POINT OF CARE TEST ORDERABLE S Performing Organization Address City/[facility]/ZIP Code Phon e Number [address] POCT Glucose (08/11/2017 12:04 PM EST) athologist Signature POC Glucose 182 65 - 199 [facility] Comment: Supplemental ranges: <140 mg/dL before meals <180 mg/dL all other times of the day Specimen Anatomical Collection Method Collection Time Receive d Time (Source) Location / / Volume Laterality Blood specimen 08/11/2017 12:04 8 (specimen) PM EST 12:04 PM EST Yonathan Smith MD POINT OF CARE TEST ORDERABLE S Performing Organization Address City/[facility]/ZIP Code Phon e Number [address] POCT Glucose (08/11/2017 7:31 AM EST) athologist Signature POC Glucose 156 65 - 199 [facility] Comment: Supplemental ranges: <140 mg/dL before meals <180 mg/dL all other times of the day Specimen Anatomical Collection Method Collection Time Receive d Time (Source) Location / / Volume Laterality Blood specimen 08/11/2017 7:31 AM 018 7:31 (specimen) EST AM EST Yonathan Smith MD POINT OF CARE TEST ORDERABLE S Performing Organization Address City/[facility]/ZIP Code Phon e Number [address] (ABNORMAL) Differential, Automated (08/11/2017 6:16 AM EST) [facility] Method Time Signature Neutrophils % 83.7 % [facility] LABORATORY Neutr Abs (ANC) 10.76 (H) 1.70 - [facility] 6.10 [facility] x10(3)/[facility] LABORATORY Lymphocytes % 6.0 % [facility] LABORATORY Lymphocytes Abs 0.8 (L) 0.9 - 3.2 [facility] x10(3)/[facility] LABORATORY Monocytes % 7.5 % [facility] LABORATORY Monocyte Abs 1.0 (H) 0.3 - 0.9 [facility] x10(3)/[facility] LABORATORY Eosinophils % 2.0 % [facility] LABORATORY Eosinophils Abs 0.3 0.0 - 0.4 [facility] x10(3)/[facility] LABORATORY Basophils % 0.3 % [facility] LABORATORY Basophils Abs 0.0 0.0 - 0.1 [facility] x10(3)/[facility] LABORATORY Immature Gran % [...] Organization Address City/State/Z[place] [address] (ABNORMAL) Hemogram (08/11/2017 6:16 AM EST) Analysis Performed At Patho logist Time Signature WBC 12.9 (H) 4.0 - 9.5 [facility] x10(3)/[facility] LABORATORY RBC 3.28 (L) 4.58 - [facility] 5.54 [facility] x10(6)/[facility] LABORATORY Hemoglobin 9.5 (L) 13.7 - [place] [facility] 16.5 gm/dL [facility] Hematocrit 29.8 (L) 40.5 - [place] [facility] 48.5 % [facility] MCV 90.9 82.9 - [facility] 93.1 [facility] LABORATORY MCH 29.0 27.5 - [place] OL[place] 32.1 pg [facility] MCHC 31.9 (L) 32.0 - [place] DAV[place] 35.7 gm/dL [facility] Platelets 236 145 - 357 [facility] x10(3)/[facility] LABORATORY RDWSD 53.5 (H) 36.0 - [place] DAV[place] 45.0 [facility] LABORATORY RDWCV 16.3 (H) 11.4 - [facility] 13.8 % [facility] MPV 8.8 7.6 - 12.9 [facility] LABORATORY nRBC % Auto 0.0 % [facility] LABORATORY nRBC Abs Auto 0.000 0.000 - [facility] 0.000 [facility] x10(3)/[facility] LABORATORY Specimen Anatomical Collection Method Collection Time Receive d Time (Source) Location / / Volume Laterality Blood specimen 08/11/2017 6:16 AM 018 6:24 (specimen) EST AM EST Resulting Agency Comment Spec In Lab Yonathan Smith MD HEMATOLOGY ORDERABLES Performing Organization Address City/State/[place] [address] (ABNORMAL) Prothrombin Time (08/11/2017 [...] Organization Address City/State/[place] [address] Basic Metabolic Panel (non-fasting) (08/11/2017 6:16 AM EST) P athologist Signature Glucose Lvl 139 65 - 199 [facility] mg/dL [facility] Comment: Diabetes: >=200 mg/dL plus [...] or in patients with acute kidney failure. [email or web address].Intellecap/DHnkdep http://Tradeos/DHMCnkf Specimen Anatomical Collection Method Collection Time Receive d Time (Source) Location / / Volume Laterality Blood specimen 08/11/2017 6:16 AM 018 6:24 (specimen) EST AM EST Resulting Agency Comment Spec In Lab Yonathan Smith MD CHEMISTRY ORDERABLES Performing Organization Address City/State/ZIP Code Phon e Number [address] POCT Glucose (08/11/2017 4:07 AM EST) athologist Signature POC Glucose 162 65 - 199 [place] [facility] mg/dL [facility] Comment: Supplemental ranges: <140 mg/dL before meals <180 mg/dL all other times of the day Specimen Anatomical Collection Method Collection Time Receive d Time (Source) Location / / Volume Laterality Blood specimen 08/11/2017 4:07 AM 018 4:07 (specimen) EST AM EST Yonathan Smith MD POINT OF CARE TEST ORDERABLE S Performing Organization Address City/[facility]/ZIP Code Phon e Number [address] POCT Glucose (08/10/2017 11:59 PM EST) athologist Signature POC Glucose 166 65 - 199 [place] [facility] mg/dL [facility] Comment: Supplemental ranges: <140 mg/dL before meals <180 mg/dL all other times of the day Specimen Anatomical Collection Method Collection Time Receive d Time (Source) Location / / Volume Laterality Blood specimen 08/10/2017 11:59 8 (specimen) PM EST 11:59 PM EST Yonathan Smith MD POINT OF CARE TEST ORDERABLE S Performing Organization Address City/State/ZIP Code Phon e Number [address] POCT Glucose (08/10/2017 8:12 PM EST) athologist Signature POC Glucose 156 65 - 199 [place] [facility] mg/dL [facility] Comment: Supplemental ranges: <140 mg/dL before meals <180 mg/dL all other times of the day Specimen Anatomical Collection Method Collection Time Receive d Time (Source) Location / / Volume Laterality Blood specimen 08/10/2017 8:12 PM 018 8:12 (specimen) EST PM EST Yonathan Smith MD POINT OF CARE TEST ORDERABLE S Performing Organization Address City/State/ZIP Code Phon e Number [place] [id number] [address]OS[address]ORY Drive (ABNORMAL) POCT Glucose (08/10/2017 4:42 PM EST) P athologist Signature POC Glucose 211 (H) 65 - 199 [facility]/dL [facility] Comment: Supplemental ranges: <140 mg/dL before meals <180 mg/dL all other times of the day Specimen Anatomical Collection Method Collection Time Receive d Time (Source) Location / / Volume Laterality Blood specimen 08/10/2017 4:42 PM 018 4:42 (specimen) EST PM EST Yonathan Smith MD POINT OF CARE TEST ORDERABLE S Performing Organization Address City/State/ZIP Code Phon e Number [address] (ABNORMAL) Differential, Automated (08/10/2017 2:30 PM EST) Patholo gist Method Time Signature Neutrophils % 87.6 % [facility] LABORATORY Neutr Abs (ANC) 9.90 (H) 1.70 - [facility] 6.10 [facility] x10(3)/[facility] L LABORATORY Lymphocytes % 4.3 % [facility] LABORATORY Lymphocytes Abs 0.5 (L) 0.9 - 3.2 [facility] x10(3)/[facility] LABORATORY Monocytes % 6.0 % [facility] LABORATORY Monocyte Abs 0.7 0.3 - 0.9 [facility] x10(3)/[facility] LABORATORY Eosinophils % 1.1 % [facility] LABORATORY Eosinophils Abs 0.1 0.0 - 0.4 [facility] x10(3)/[facility] LABORATORY Basophils % 0.4 % [facility] LABORATORY Basophils Abs 0.0 0.0 - 0.1 [facility] x10(3)/[facility] LABORATORY Immature Gran % [...] Gran Abs 0.07 (H) 0.00 - 0.04 x10(3)/[facility] LABORATORY Specimen Anatomical Collection Method Collection Time Receive d Time (Source) Location / / Volume Laterality Blood specimen 08/10/2017 2:30 PM 018 2:48 (specimen) EST PM EST Resulting Agency Comment Spec In Lab Yonathan Smith MD HEMATOLOGY ORDERABLES Performing Organization Address City/State/Z[place] [address] (ABNORMAL) Hemogram (08/10/2017 2:30 PM EST) Analysis Performed At Patho logist Time Signature WBC 11.3 (H) 4.0 - 9.5 [facility] x10(3)/[facility] LABORATORY RBC 3.13 (L) 4.58 - [facility] x10(6)/[facility] LABORATORY Hemoglobin 8.9 (L) 13.7 - [facility] 16.[facility] gm/dL [facility] Hematocrit 28.4 (L) 40.5 - [facility] 48.5 % [facility] MCV 90.7 82.9 - [facility] 93.1 [facility] LABORATORY MCH 28.4 27.5 - [facility] 32.1 pg [facility] MCHC 31.3 (L) 32.0 - [facility] 35.7 gm/dL [facility] Platelets 213 145 - 357 [facility] x10(3)/[facility] LABORATORY RDWSD 53.7 (H) 36.0 - [facility] 45.0 [facility] LABORATORY RDWCV 16.4 (H) 11.4 - [facility] 13.8 % [facility] MPV 8.9 7.6 - 12.9 [facility] LABORATORY nRBC % Auto 0.0 % [facility] LABORATORY nRBC Abs Auto 0.000 0.000 - [facility] [employer] 0.000 [facility] x10(3)/[facility] LABORATORY Specimen Anatomical Collection Method Collection Time Receive d Time (Source) Location / / Volume Laterality Blood specimen 08/10/2017 2:30 PM 018 2:48 (specimen) EST PM EST Resulting Agency Comment Spec In Lab Yonathan Smith MD HEMATOLOGY ORDERABLES Performing Organization Address City/[facility]/ZIP Code Phon e Number [address] (ABNORMAL) POCT Glucose (08/10/2017 1:50 PM EST) athologist Signature POC Glucose 243 (H) 65 - 199 [facility]/dL [facility] Comment: Supplemental ranges: <140 mg/dL before meals <180 mg/dL all other times of the day Specimen Anatomical Collection Method Collection Time Receive d Time (Source) Location / / Volume Laterality Blood specimen 08/10/2017 1:50 PM 018 1:50 (specimen) EST PM EST Yonathan Smith MD POINT OF CARE TEST ORDERABLE S Performing Organization Address City/[facility]/ZIP Code Phon e Number [address] POCT Glucose (08/10/2017 11:21 AM EST) athologist Signature POC Glucose 156 65 - 199 [facility]/dL [facility] Comment: Supplemental ranges: <140 mg/dL before meals <180 mg/dL all other times of the day Specimen Anatomical Collection Method Collection Time Receive d Time (Source) Location / / Volume Laterality Blood specimen 08/10/2017 11:21 8 (specimen) AM EST 11:21 AM EST Yonathan Smith MD POINT OF CARE TEST ORDERABLE S Performing Organization Address City/[facility]/ZIP Code Phon e Number [address] (ABNORMAL) Differential, Automated (08/10/2017 10:28 AM EST) [facility] Method Time Signature Neutrophils % 85.3 % [facility] LABORATORY Neutr Abs (ANC) 9.43 (H) 1.70 - [facility] 6.10 [facility] x10(3)/[facility] L LABORATORY Lymphocytes % 5.5 % [facility] LABORATORY Lymphocytes Abs 0.6 (L) 0.9 - 3.2 [facility] x10(3)/[facility] LABORATORY Monocytes % 5.9 % [facility] LABORATORY Monocyte Abs 0.6 0.3 - 0.9 [facility] x10(3)/[facility] LABORATORY Eosinophils % 2.1 % [facility] LABORATORY Eosinophils Abs 0.2 0.0 - 0.4 [facility] x10(3)/[facility] LABORATORY Basophils % 0.4 % [facility] LABORATORY Basophils Abs 0.0 0.0 - 0.1 [facility] x10(3)/[facility] LABORATORY Immature Gran % [...] Organization Address City/State/Z[place] [address] (ABNORMAL) Hemogram (08/10/2017 10:28 AM EST) Analysis Performed At Patho logist Time Signature WBC 11.0 (H) 4.0 - 9.5 [facility] x10(3)/[facility] LABORATORY RBC 3.02 (L) 4.58 - [facility] 5.54 [facility] x10(6)/[facility] LABORATORY Hemoglobin 8.8 (L) 13.7 - [facility] 16.5 gm/dL [facility] Hematocrit 28.1 (L) 40.5 - [facility] 48.5 % [facility] MCV 93.0 82.9 - [facility] 93.1 [facility] LABORATORY MCH 29.1 27.5 - [place] OLIV[facility]CK 32.1 pg [facility] MCHC 31.3 (L) 32.0 - [facility] 35.7 gm/dL [facility] Platelets 207 145 - 357 [facility] x10(3)/[facility] LABORATORY RDWSD 55.3 (H) 36.0 - [facility] 45.0 [facility] LABORATORY RDWCV 16.4 (H) 11.4 - [facility] 13.8 % [facility] MPV 9.0 7.6 - 12.9 [facility] LABORATORY nRBC % Auto 0.0 % [facility] nRBC Abs Auto 0.000 0.000 - [place] [facility] 0.000 [facility] x10(3)/[facility] LABORATORY Specimen Anatomical Collection Method Collection Time Receive d Time (Source) Location / / Volume Laterality Blood specimen 08/10/2017 10:28 8 (specimen) AM EST 10:35 AM EST Resulting Agency Comment Spec In Lab Yonathan Smith MD HEMATOLOGY ORDERABLES Performing Organization Address City/State/Z[place] [address] VS Angiogram/intervention (vascular) (08/10/2017 [...] 2.5x80 5. Completion RLE angiogram 6. L CRYPTOGRAPHIC MACHINE OPERATOR angiogram 7. 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 L CRYPTOGRAPHIC MACHINE OPERATOR access in the distal L CRYPTOGRAPHIC MACHINE OPERATOR. - Closure device: Mynx Technical [...] for a 45cm 5F Destination. V18 and Excel a nd QuickCross catheters were used to [...] bifurcation. Access appeared in the distal R CRYPTOGRAPHIC MACHINE OPERATOR. Closure and sheath removal was [...] 2.5x80 5. Completion RLE angiogram 6. L CRYPTOGRAPHIC MACHINE OPERATOR angiogram 7. 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 L CRYPTOGRAPHIC MACHINE OPERATOR access in the distal L CRYPTOGRAPHIC MACHINE OPERATOR. - Closure device: Mynx Technical [...] for a 45cm 5F Destination. V18 and Excel a nd QuickCross catheters were used to [...] bifurcation. Access appeared in the distal R CRYPTOGRAPHIC MACHINE OPERATOR. Closure and sheath removal was [...] (ABNORMAL) Differential, Automated (08/10/2017 5:50 AM EST) [facility] Method Time Signature Neutrophils % 80.1 % [facility] Neutr Abs (ANC) 9.01 (H) 1.70 - [facility] 6.10 [facility] x10(3)/[facility] LABORATORY Lymphocytes % 8.8 % [facility] Lymphocytes Abs 1.0 0.9 - 3.2 [facility] x10(3)/[facility] LABORATORY Monocytes % 8.3 % [facility] Monocyte Abs 0.9 0.3 - 0.9 [facility] x10(3)/[facility] LABORATORY Eosinophils % 2.0 % [facility] Eosinophils Abs 0.2 0.0 - 0.4 [facility] x10(3)/[facility] LABORATORY Basophils % 0.4 % [facility] Basophils Abs 0.0 0.0 - 0.1 [facility] x10(3)/[facility] LABORATORY Immature Gran % [...] Organization Address City/State/[place] [address] (ABNORMAL) Hemogram (08/10/2017 5:50 AM EST) Analysis Performed At Patho logist Time Signature WBC 11.3 (H) 4.0 - 9.5 [facility] x10(3)/[facility] LABORATORY RBC 3.15 (L) 4.58 - [place] 5.54 [facility] x10(6)/[facility] LABORATORY Hemoglobin 8.9 (L) 13.7 - [facility] 16.5 gm/dL [facility] Hematocrit 29.0 (L) 40.5 - [facility] RYAN 48.5 % [facility] MCV 92.1 82.9 - [facility] RYAN 93.1 [facility] LABORATORY MCH 28.3 27.5 - [facility] RYAN 32.1 pg [facility] MCHC 30.7 (L) 32.0 - [facility] RYAN 35.7 gm/dL [facility] Platelets 231 145 - 357 [facility] x[facility](3[facility] RDWSD 53.9 (H) 36.0 - [facility] RYAN 45.0 [facility] LABORATORY RDWCV 16.2 (H) 11.4 - [facility] RYAN 13.8 % [facility] MPV 8.7 7.6 - 12.9 [facility] LABORATORY nRBC % Auto 0.0 % [facility] nRBC Abs Auto 0.000 0.000 - [facility] 0.000 [facility] x10(3)/[facility] LABORATORY Specimen Anatomical Collection Method Collection Time Receive d Time (Source) Location / / Volume Laterality Blood specimen 08/10/2017 5:50 AM 018 5:59 (specimen) EST AM EST Resulting Agency Comment Spec In Lab Yonathan Smith MD HEMATOLOGY ORDERABLES Performing Organization Address City/State/[place] [address] (ABNORMAL) Basic Metabolic Panel (non-fasting) (08/10/2017 5:50 AM EST) P athologist Signature Glucose Lvl 135 65 - 199 [facility] mg/dL [facility] Comment: Diabetes: >=200 mg/dL plus [...] or in patients with acute kidney failure. [email or web address].Intellecap/DHnkdep [email or web address].Intellecap/DHMCnkf Specimen Anatomical Collection Method Collection Time Receive d Time (Source) Location / / Volume Laterality Blood specimen 08/10/2017 5:50 AM 018 5:59 (specimen) EST AM EST Resulting Agency Comment Spec In Lab Yonathan Smith MD CHEMISTRY ORDERABLES Performing Organization Address [facility] [place] [address] (ABNORMAL) Prothrombin Time (08/10/2017 [...] Smith MD HEMATOLOGY ORDERABLES Performing Organization Address City/[facility] [place] [address] (ABNORMAL) POCT Glucose (08/10/2017 4:01 AM EST) athologist Signature POC Glucose 206 (H) 65 - 199 [facility] mg/dL [facility] Comment: Supplemental ranges: <140 mg/dL before meals <180 mg/dL all other times of the day Specimen Anatomical Collection Method Collection Time Receive d Time (Source) Location / / Volume Laterality Blood specimen 08/10/2017 4:01 AM 018 4:01 (specimen) EST AM EST Yonathan Smtih MD POINT OF CARE TEST ORDERABLE S Performing Organization Address City/State/ZIP Code Phon e Number [address] POCT Glucose (08/10/2017 2:01 AM EST) athologist Signature POC Glucose 188 65 - 199 [place] [facility] mg/dL [facility] Comment: Supplemental ranges: <140 mg/dL before meals <180 mg/dL all other times of the day Specimen Anatomical Collection Method Collection Time Receive d Time (Source) Location / / Volume Laterality Blood specimen 08/10/2017 2:01 AM 018 2:01 (specimen) EST AM EST Yonathan Smith MD POINT OF CARE TEST ORDERABLE S Performing Organization Address City/[facility]/[place] [address] (ABNORMAL) POCT Glucose (08/09/2017 11:42 PM EST) athologist Signature POC Glucose 283 (H) 65 - 199 [place] mg/dL [facility] Comment: Supplemental ranges: <140 mg/dL before meals <180 mg/dL all other times of the day Specimen Anatomical Collection Method Collection Time Receive d Time (Source) Location / / Volume Laterality Blood specimen 08/09/2017 11:42 8 (specimen) PM EST 11:42 PM EST Yonathan Smith MD POINT OF CARE TEST ORDERABLE S Performing Organization Address City/State/[place] [address] POCT Glucose (08/09/2017 8:55 PM EST) athologist Signature POC Glucose 182 65 - 199 [place] mg/dL [facility] Comment: Supplemental ranges: <140 mg/dL before meals <180 mg/dL all other times of the day Specimen Anatomical Collection Method Collection Time Receive d Time (Source) Location / / Volume Laterality Blood specimen 08/09/2017 8:55 PM 018 8:55 (specimen) EST PM EST Yonathan Smith MD POINT OF CARE TEST ORDERABLE S Performing Organization Address City/[facility]/[place] [address] (ABNORMAL) APTT (08/09/2017 6:42 [...] Smith MD HEMATOLOGY ORDERABLES Performing Organization Address City/[facility]/[place] [address] POCT Glucose (08/09/2017 4:41 PM EST) athologist Signature POC Glucose 195 65 - 199 [facility] mg/dL [facility] Comment: Supplemental ranges: <140 mg/dL before meals <180 mg/dL all other times of the day Specimen Anatomical Collection Method Collection Time Receive d Time (Source) Location / / Volume Laterality Blood specimen 08/09/2017 4:41 PM 018 4:41 (specimen) EST PM EST Yonathan Smith MD POINT OF CARE TEST ORDERABLE S Performing Organization Address City/[facility]/[place] [address] POCT Glucose (08/09/2017 12:29 PM EST) athologist Signature POC Glucose 140 65 - 199 [facility] mg/dL [facility] Comment: Supplemental ranges: <140 mg/dL before meals <180 mg/dL all other times of the day Specimen Anatomical Collection Method Collection Time Receive d Time (Source) Location / / Volume Laterality Blood specimen 08/09/2017 12:29 8 (specimen) PM EST 12:29 PM EST Yonathan Smith MD POINT OF CARE TEST ORDERABLE S Performing Organization Address [facility]/ZIP Code Phon e Number [address] POCT Glucose (08/09/2017 9:59 AM EST) P athologist Signature POC Glucose 135 65 - 199 [facility] mg/dL [facility] Comment: Supplemental ranges: <140 mg/dL before meals <180 mg/dL all other times of the day Specimen Anatomical Collection Method Collection Time Receive d Time (Source) Location / / Volume Laterality Blood specimen 08/09/2017 9:59 AM 018 9:59 (specimen) EST AM EST Yonathan Smith MD POINT OF CARE TEST ORDERABLE S Performing Organization Address [facility]/ZIP Code Phon e Number [address] Specimen to Pathology (08/09/2017 8:41 AM EST) Specimen Anatomical Collection Method Collection Time Receive d Time (Source) Location / / Volume Laterality AP Specimen 08/09/2017 8:41 AM 8 8:41 EST AM EST Narrative [facility]Y - 08/09/2017 8:41 AM EST Specimen requisition ordered. ??Separate Pathology report to follow Yonathan Smith MD PATHOLOGY/CYTOLOGY ORDERABLE S Performing Organization Address City/[facility]/[place] [address] Surgical Pathology Report (08/09/2017 8:40 AM EST) Component Value Ref Test Analysis Performed At Patholo gist Range Method Time Signature Surgical [id number] ? Location: [facility]; [facility]; A [facility] Report The signing pathologist has [...] Henrique Flower Verified: ??08/13/2017 ?Pathologist Performed at: ??-[facility] Dept. of Pathology, [place], [place] CLINICAL INFORMATION Specimen Submitted: A - [...] Organization Address City/State/Z[place] [address] Anaerobic Culture (08/09/2017 8:30 AM EST) [facility] Method Time Signature Anaerobic No anaerobic [facility] Culture organisms [facility] [...] City/[facility]/[place] [address] (ABNORMAL) Abscess/Wound Aspirate Culture (08/09/2017 8:30 AM EST) [facility] Method Time Signature Abscess/Wound Moderate mixed [facility] Aspirate bacterial [place] Culture morphotypes [facility] normal LABORATORY cutaneous leroy (A) Gram Stain Rare White Blood Cells [place] Few Gram Positive Cocci in pairs [place] () [facility] Organism Gram Positive [place] Cocci in pairs [place] () [facility] Specimen Anatomical Collection Method Collection [...] City/[facility]/ZIP Code Phon e Number [place] [id number]OS[address] POCT Glucose (08/09/2017 4:28 AM EST) P athologist Signature POC Glucose 128 65 - 199 [facility] mg/dL [facility] Comment: Supplemental ranges: <140 mg/dL before meals <180 mg/dL all other times of the day Specimen Anatomical Collection Method Collection Time Receive d Time (Source) Location / / Volume Laterality Blood specimen 08/09/2017 4:28 AM 018 4:28 (specimen) EST AM EST Yonathan Smith MD POINT OF CARE TEST ORDERABLE S Performing Organization Address City/State/[place] [address] ABORH Recheck Status (08/09/2017 1:10 AM EST) [facility] Method Time Signature ABORH Type Completed [facility] LABORATORY Specimen Anatomical Collection Method Collection Time Receive d Time (Source) Location / / Volume Laterality Blood specimen 08/09/2017 1:10 AM 018 1:35 (specimen) EST AM EST Resulting Agency Comment Spec In Lab Yonathan Smith MD BLOOD BANK ORDERABLES Performing Organization Address City/[facility]/[place] [address] Antibody screen (08/09/2017 1:10 AM EST) [facility] Method Time Signature Ab Screen Negative [facility] LABORATORY Expires at 08/12/2017 [facility] [id number] on: [facility] Specimen Anatomical Collection Method Collection Time Receive d Time (Source) Location / / Volume Laterality Blood specimen 08/09/2017 1:10 AM 018 1:35 (specimen) EST AM EST Resulting Agency Comment Spec In Lab Yonathan Smith MD BLOOD BANK ORDERABLES Performing Organization Address City/[facility]/[place] [address] ABO/Rh Typing (08/09/2017 1:10 AM EST) P athologist Signature ABORh Type O Pos [facility] Specimen Anatomical Collection Method Collection Time Receive d Time (Source) Location / / Volume Laterality Blood specimen 08/09/2017 1:10 AM 018 1:35 (specimen) EST AM EST Resulting Agency Comment Spec In Lab Yonathan Smith MD BLOOD BANK ORDERABLES Performing Organization Address City/[facility]/[place] [address] (ABNORMAL) APTT (08/09/2017 1:10 [...] Organization Address City/State/Z[place] [address] (ABNORMAL) Differential, Automated (08/09/2017 1:10 AM EST) [facility] gist Method Time Signature Neutrophils % 76.2 % [facility] Neutr Abs (ANC) 8.59 (H) 1.70 - [facility] 6.10 [facility] x10(3)/[facility] LABORATORY Lymphocytes % 11.0 % [facility] Lymphocytes Abs 1.2 0.9 - 3.2 [facility] x10(3)/[facility] LABORATORY Monocytes % 8.4 % [facility] Monocyte Abs 1.0 (H) 0.3 - 0.9 [facility] x10(3)/[facility] LABORATORY Eosinophils % 3.5 % [facility] Eosinophils Abs 0.4 0.0 - 0.4 [facility] x10(3)/[facility] LABORATORY Basophils % 0.5 % [facility] Basophils Abs 0.1 0.0 - 0.1 [facility] x10(3)/[facility] LABORATORY Immature Gran % [...] Organization Address City/State/Z[place] [address] (ABNORMAL) Hemogram (08/09/2017 1:10 AM EST) Analysis Performed At Patho logist Time Signature WBC 11.3 (H) 4.0 - 9.5 [facility] x10(3)/[facility] LABORATORY RBC 3.47 (L) 4.58 - [facility] 5.54 [facility] x10(6)/[facility] LABORATORY Hemoglobin 10.0 (L) 13.7 - [facility] 16.[facility] gm/dL [facility] Hematocrit 31.9 (L) 40.5 - [facility] 48.5 % [facility] MCV 91.9 82.9 - [facility] 93.1 [facility] LABORATORY MCH 28.8 27.5 - [facility] RYAN 32.1 pg [facility] MCHC 31.3 (L) 32.0 - [facility] 35.7 gm/dL [facility] Platelets 234 145 - 357 [facility] x10(3)/[facility] LABORATORY RDWSD 54.0 (H) 36.0 - [facility] RYAN 45.0 [facility] LABORATORY RDWCV 16.2 (H) 11.4 - [facility] 13.8 % [facility] MPV 8.7 7.6 - 12.9 [facility] LABORATORY nRBC % Auto 0.0 % [facility] LABORATORY nRBC Abs Auto 0.000 0.000 - [place] 0.000 [facility] x10(3)/[facility] LABORATORY Specimen Anatomical Collection Method Collection Time Receive d Time (Source) Location / / Volume Laterality Blood specimen 08/09/2017 1:10 AM 018 1:19 (specimen) EST AM EST Resulting Agency Comment Spec In Lab Yonathan Smith MD HEMATOLOGY ORDERABLES Performing Organization Address [facility] [place] [address] (ABNORMAL) Prothrombin Time (08/09/2017 [...] Smith MD HEMATOLOGY ORDERABLES Performing Organization Address [facility] [place] [address] (ABNORMAL) Basic Metabolic Panel (non-fasting) (08/09/2017 1:10 AM EST) athologist Signature Glucose Lvl 108 65 - 199 [facility] mg/dL [facility] Comment: Diabetes: >=200 mg/dL plus [...] or in patients with acute kidney failure. http://Tradeos/DHnkdep http://Tradeos/DHMCnkf Specimen Anatomical Collection Method Collection Time Receive d Time (Source) Location / / Volume Laterality Blood specimen 08/09/2017 1:10 AM 018 1:19 (specimen) EST AM EST Resulting Agency Comment Spec In Lab Yonathan Smith MD CHEMISTRY ORDERABLES Performing Organization Address City/State/ZIP Code Phon e Number [address] POCT Glucose (08/09/2017 12:05 AM EST) athologist Signature POC Glucose 128 65 - 199 [facility] mg/dL [facility] Comment: Supplemental ranges: <140 mg/dL before meals <180 mg/dL all other times of the day Specimen Anatomical Collection Method Collection Time Receive d Time (Source) Location / / Volume Laterality Blood specimen 08/09/2017 12:05 8 (specimen) AM EST 12:05 AM EST Yonathan Smith MD POINT OF CARE TEST ORDERABLE S Performing Organization Address City/State/[place] [address] (ABNORMAL) POCT Glucose (08/08/2017 7:36 PM EST) athologist Signature POC Glucose 215 (H) 65 - 199 [facility] mg/dL [facility] Comment: Supplemental ranges: <140 mg/dL before meals <180 mg/dL all other times of the day Specimen Anatomical Collection Method Collection Time Receive d Time (Source) Location / / Volume Laterality Blood specimen 08/08/2017 7:36 PM 018 7:36 (specimen) EST PM EST Yonathan Smith MD POINT OF CARE TEST ORDERABLE S Performing Organization Address City/[facility]/[place] [address] (ABNORMAL) POCT Glucose (08/08/2017 6:23 PM EST) athologist Signature POC Glucose 216 (H) 65 - 199 [facility] mg/dL [facility] Comment: Supplemental ranges: <140 mg/dL before meals <180 mg/dL all other times of the day Specimen Anatomical Collection Method Collection Time Receive d Time (Source) Location / / Volume Laterality Blood specimen 08/08/2017 6:23 PM 018 6:23 (specimen) EST PM EST Yonathan Smith MD POINT OF CARE TEST ORDERABLE S Performing Organization Address City/[facility]/[place] [address] (ABNORMAL) APTT (08/08/2017 6:00 [...] Smith MD HEMATOLOGY ORDERABLES Performing Organization Address City/[facility]/ZIP Code [place] [address] POCT Glucose (08/08/2017 4:42 PM EST) athologist Signature POC Glucose 78 65 - 199 [facility] mg/dL [facility] Comment: Supplemental ranges: <140 mg/dL before meals <180 mg/dL all other times of the day Specimen Anatomical Collection Method Collection Time Receive d Time (Source) Location / / Volume Laterality Blood specimen 08/08/2017 4:42 PM 018 4:42 (specimen) EST PM EST Yonathan Smith MD POINT OF CARE TEST ORDERABLE S Performing Organization Address City/State/[place] [address] (ABNORMAL) POCT Glucose (08/08/2017 4:01 PM EST) athologist Signature POC Glucose 58 (L) 65 - 199 [facility] mg/dL [facility] Comment: Supplemental ranges: <140 mg/dL before meals <180 mg/dL all other times of the day Specimen Anatomical Collection Method Collection Time Receive d Time (Source) Location / / Volume Laterality Blood specimen 08/08/2017 4:01 PM 018 4:01 (specimen) EST PM EST Yonathan Smith MD POINT OF CARE TEST ORDERABLE S Performing Organization Address City/State/[place] [address] POCT Glucose (08/08/2017 11:51 AM EST) athologist Signature POC Glucose 90 65 - 199 [facility] mg/dL [facility] Comment: Supplemental ranges: <140 mg/dL before meals <180 mg/dL all other times of the day Specimen Anatomical Collection Method Collection Time Receive d Time (Source) Location / / Volume Laterality Blood specimen 08/08/2017 11:51 8 (specimen) AM EST 11:51 AM EST Yonathan Smith MD POINT OF CARE TEST ORDERABLE S Performing Organization Address City/State/[place] [address] (ABNORMAL) APTT (08/08/2017 10:27 [...] Smith MD HEMATOLOGY ORDERABLES Performing Organization Address City/[facility]/ZIP Code Phon e Number [address] POCT Glucose (08/08/2017 8:02 AM EST) athologist Signature POC Glucose 178 65 - 199 [facility] mg/dL [facility] Comment: Supplemental ranges: <140 mg/dL before meals <180 mg/dL all other times of the day Specimen Anatomical Collection Method Collection Time Receive d Time (Source) Location / / Volume Laterality Blood specimen 08/08/2017 8:02 AM 018 8:02 (specimen) EST AM EST Yonathan Smith MD POINT OF CARE TEST ORDERABLE S Performing Organization Address City/[facility]/[place] [address] (ABNORMAL) APTT (08/08/2017 4:51 AM EST) athologist Signature PTT >160 25 - 35 [facility] (Critical) sec [facility] Comment: Called by: HOWARD, Read [...] Organization Address City/State/Z[place] [address] (ABNORMAL) Differential, Automated (08/08/2017 4:51 AM EST) [facility] gist Method Time Signature Neutrophils % 77.9 % [facility] LABORATORY Neutr Abs (ANC) 8.17 (H) 1.70 - [facility] 6.10 [facility] x10(3)/[facility] LABORATORY Lymphocytes % 10.3 % [facility] LABORATORY Lymphocytes Abs 1.1 0.9 - 3.2 [facility] x10(3)/[facility] LABORATORY Monocytes % 7.0 % [facility] LABORATORY Monocyte Abs 0.7 0.3 - 0.9 [facility] x10(3)/[facility] LABORATORY Eosinophils % 3.6 % [facility] LABORATORY Eosinophils Abs 0.4 0.0 - 0.4 [facility] x10(3)/[facility] LABORATORY Basophils % 0.5 % [facility] LABORATORY Basophils Abs 0.0 0.0 - 0.1 [facility] x10(3)/[facility] LABORATORY Immature Gran % [...] Gran Abs 0.07 (H) 0.00 - 0.04 x10(3)/[facility] LABORATORY Specimen Anatomical Collection Method Collection Time Receive d Time (Source) Location / / Volume Laterality Blood specimen 08/08/2017 4:51 AM 01/14/2 018 5:14 (specimen) EST AM EST Resulting Agency Comment Spec In Lab Yonathan Smith MD HEMATOLOGY ORDERABLES Performing Organization Address City/State/ZIP Code Phon e Number [address] (ABNORMAL) Hemogram (08/08/2017 4:51 AM EST) Analysis Performed At Patho logist Time Signature WBC 10.5 (H) 4.0 - 9.5 [facility] x[facility](3[facility] LABORATORY RBC 3.27 (L) 4.58 - [place] [facility] 5.54 [facility] x10(6)/[facility] LABORATORY Hemoglobin 9.3 (L) 13.7 - [facility] 16.5 gm/dL [facility] Hematocrit 30.3 (L) 40.5 - [facility] 48.5 % [facility] MCV 92.7 82.9 - [facility] 93.1 [facility] LABORATORY MCH 28.4 27.5 - [place] [facility] 32.1 pg [facility] MCHC 30.7 (L) 32.0 - [place] [facility] 35.7 gm/dL [facility] Platelets 252 145 - 357 [facility] x10(3)/[facility] LABORATORY RDWSD 54.6 (H) 36.0 - [place] 45.0 [facility] LABORATORY RDWCV 16.2 (H) 11.4 - [facility] RYAN 13.8 % [facility] MPV 9.1 7.6 - 12.9 [facility] LABORATORY nRBC % Auto 0.0 % [facility] LABORATORY nRBC Abs Auto 0.000 0.000 - [place] [facility] 0.000 [facility] x10(3)/[facility] LABORATORY Specimen Anatomical Collection Method Collection Time Receive d Time (Source) Location / / Volume Laterality Blood specimen 08/08/2017 4:51 AM 018 5:14 (specimen) EST AM EST Resulting Agency Comment Spec In Lab Yonathan Smith MD HEMATOLOGY ORDERABLES Performing Organization Address City/State/[place] [address] [address] (ABNORMAL) Prothrombin Time (08/08/2017 [...] Organization Address City/State/[place] [address] (ABNORMAL) Basic Metabolic Panel (non-fasting) (08/08/2017 4:51 AM EST) athologist Signature Glucose Lvl 229 (H) 65 - 199 [facility] mg/dL [facility] Comment: Diabetes: >=200 mg/dL plus [...] or in patients with acute kidney failure. [email or web address]/DHnkdep [email or web address]/DHMCnkf Specimen Anatomical Collection Method Collection Time Receive d Time (Source) Location / / Volume Laterality Blood specimen 08/08/2017 4:51 AM 018 5:14 (specimen) EST AM EST Resulting Agency Comment Spec In Lab Yonathan Smith MD CHEMISTRY ORDERABLES Performing Organization Address City/[facility]/ZIP Code Phon e Number [address] POCT Glucose (08/08/2017 4:20 AM EST) athologist Signature POC Glucose 193 65 - 199 [facility] Comment: Supplemental ranges: <140 mg/dL before meals <180 mg/dL all other times of the day Specimen Anatomical Collection Method Collection Time Receive d Time (Source) Location / / Volume Laterality Blood specimen 08/08/2017 4:20 AM 018 4:20 (specimen) EST AM EST Yonathan Smith MD POINT OF CARE TEST ORDERABLE S Performing Organization Address City/[facility]/ZIP Code Phon e Number [address] POCT Glucose (08/07/2017 11:11 PM EST) athologist Signature POC Glucose 124 65 - 199 [facility] mg/dL [facility] Comment: Supplemental ranges: <140 mg/dL before meals <180 mg/dL all other times of the day Specimen Anatomical Collection Method Collection Time Receive d Time (Source) Location / / Volume Laterality Blood specimen 08/07/2017 11:11 8 (specimen) PM EST 11:11 PM EST Yonathan Smith MD POINT OF CARE TEST ORDERABLE S Performing Organization Address City/[facility]/[place] [address] (ABNORMAL) APTT (08/07/2017 10:18 [...] Organization Address City/State/[place] [address] POCT Glucose (08/07/2017 8:10 PM EST) athologist Signature POC Glucose 140 65 - 199 [facility] mg/dL [facility] Comment: Supplemental ranges: <140 mg/dL before meals <180 mg/dL all other times of the day Specimen Anatomical Collection Method Collection Time Receive d Time (Source) Location / / Volume Laterality Blood specimen 08/07/2017 8:10 PM 018 8:10 (specimen) EST PM EST Yonathan Smith MD POINT OF CARE TEST ORDERABLE S Performing Organization Address City/State/[place] [address] POCT Glucose (08/07/2017 5:27 PM EST) athologist Signature POC Glucose 187 65 - 199 [facility] Comment: Supplemental ranges: <140 mg/dL before meals <180 mg/dL all other times of the day Specimen Anatomical Collection Method Collection Time Receive d Time (Source) Location / / Volume Laterality Blood specimen 08/07/2017 5:27 PM 018 5:27 (specimen) EST PM EST Yonathan Smith MD POINT OF CARE TEST ORDERABLE S Performing Organization Address City/[facility]/[place] [address] POCT Glucose (08/07/2017 3:29 PM EST) athologist Signature POC Glucose 86 65 - 199 [facility] mg/dL [facility] Comment: Supplemental ranges: <140 mg/dL before meals <180 mg/dL all other times of the day Specimen Anatomical Collection Method Collection Time Receive d Time (Source) Location / / Volume Laterality Blood specimen 08/07/2017 3:29 PM 018 3:29 (specimen) EST PM EST Yonathan Smith MD POINT OF CARE TEST ORDERABLE S Performing Organization Address [facility] [place] [address] (ABNORMAL) APTT (08/07/2017 2:50 [...] Smith MD HEMATOLOGY ORDERABLES Performing Organization Address City/[facility]/ZIP [facility] [place] [address] (ABNORMAL) POCT Glucose (08/07/2017 2:23 PM EST) athologist Signature POC Glucose 55 (L) 65 - 199 [facility] mg/dL [facility] Comment: Supplemental ranges: <140 mg/dL before meals <180 mg/dL all other times of the day Specimen Anatomical Collection Method Collection Time Receive d Time (Source) Location / / Volume Laterality Blood specimen 08/07/2017 2:23 PM 018 2:23 (specimen) EST PM EST Yonathan Smith MD POINT OF CARE TEST ORDERABLE S Performing Organization Address City/State/ZIP Code Phon e Number [address] POCT Glucose (08/07/2017 12:08 PM EST) P athologist Signature POC Glucose 77 65 - 199 [facility] mg/dL [facility] Comment: Supplemental ranges: <140 mg/dL before meals <180 mg/dL all other times of the day Specimen Anatomical Collection Method Collection Time Receive d Time (Source) Location / / Volume Laterality Blood specimen 08/07/2017 12:08 8 (specimen) PM EST 12:08 PM EST Yonathan Smith MD POINT OF CARE TEST ORDERABLE S Performing Organization Address City/State/[place] [address] (ABNORMAL) Differential, Automated (08/07/2017 7:30 AM EST) Patholo gist Method Time Signature Neutrophils % 73.8 % [facility] LABORATORY Neutr Abs (ANC) 7.17 (H) 1.70 - [facility] 6.10 [facility] x10(3)/[facility] L LABORATORY Lymphocytes % 12.2 % [facility] LABORATORY Lymphocytes Abs 1.2 0.9 - 3.2 [facility] x10(3)/[facility] LABORATORY Monocytes % 9.0 % [facility] LABORATORY Monocyte Abs 0.9 0.3 - 0.9 [facility] x10(3)/[facility] LABORATORY Eosinophils % 3.9 % [facility] LABORATORY Eosinophils Abs 0.4 0.0 - 0.4 [facility] x10(3)/[facility] LABORATORY Basophils % 0.6 % [facility] LABORATORY Basophils Abs 0.1 0.0 - 0.1 [facility] x10(3)/[facility] LABORATORY Immature Gran % [...] City/State/ZIP Code Phon e Number [place] [id number] (ABNORMAL) Hemogram (08/07/2017 7:30 AM EST) Analysis Performed At Patho logist Time Signature WBC 9.7 (H) 4.0 - 9.5 [facility] x10(3)/[facility] LABORATORY RBC 3.54 (L) 4.58 - [facility] 5.54 [facility] x10(6)/[facility] LABORATORY Hemoglobin 9.9 (L) 13.7 - [facility] 16.5 gm/dL [facility] Hematocrit 32.3 (L) 40.5 - [facility] 48.5 % [facility] MCV 91.2 82.9 - [facility] 93.1 [facility] LABORATORY MCH 28.0 27.5 - [facility] 32.1 pg [facility] MCHC 30.7 (L) 32.0 - [facility] 35.7 gm/dL [facility] Platelets 312 145 - 357 [facility] x10(3)/[facility] LABORATORY RDWSD 53.2 (H) 36.0 - [facility] 45.0 [facility] RDWCV 16.0 (H) 11.4 - [facility] 13.8 % [facility] MPV 8.9 7.6 - 12.9 [facility] LABORATORY nRBC % Auto 0.0 % [facility] LABORATORY nRBC Abs Auto 0.000 0.000 - [facility] 0.000 [facility] x10(3)/[facility] LABORATORY Specimen Anatomical Collection Method Collection Time Receive d Time (Source) Location / / Volume Laterality Blood specimen 08/07/2017 7:30 AM 018 7:45 (specimen) EST AM EST Resulting Agency Comment Spec In Lab Yonathan Smith MD HEMATOLOGY ORDERABLES Performing Organization Address City/State/[place] [address] (ABNORMAL) Basic Metabolic Panel (non-fasting) (08/07/2017 7:30 AM EST) athologist Signature Glucose Lvl 80 65 - 199 [facility] mg/dL [facility] Comment: Diabetes: >=200 mg/dL plus [...] or in patients with acute kidney failure. [email or web address]/DHnkdep [email or web address] CITYnkf Specimen Anatomical Collection Method Collection Time Receive d Time (Source) Location / / Volume Laterality Blood specimen 08/07/2017 7:30 AM 018 7:45 (specimen) EST AM EST Resulting Agency Comment Spec In Lab Yonathan Smith MD CHEMISTRY ORDERABLES Performing Organization Address City/[facility]/ZIP [facility] Phon e Number [address] POCT Glucose (08/07/2017 7:27 AM EST) athologist Signature POC Glucose 81 65 - 199 [facility] mg/dL [facility] Comment: Supplemental ranges: <140 mg/dL before meals <180 mg/dL all other times of the day Specimen Anatomical Collection Method Collection Time Receive d Time (Source) Location / / Volume Laterality Blood specimen 08/07/2017 7:27 AM 018 7:27 (specimen) EST AM EST Yonathan Smith MD POINT OF CARE TEST ORDERABLE S Performing Organization Address City/[facility] Phon e Number [address] APTT (08/07/2017 7:04 AM [...] Organization Address City/State/[place] [address] (ABNORMAL) Prothrombin Time (08/07/2017 [...] Organization Address City/State/[place] [address] POCT Glucose (08/07/2017 4:03 AM EST) athologist Signature POC Glucose 93 65 - 199 [facility] Comment: Supplemental ranges: <140 mg/dL before meals <180 mg/dL all other times of the day Specimen Anatomical Collection Method Collection Time Receive d Time (Source) Location / / Volume Laterality Blood specimen 08/07/2017 4:03 AM 018 4:03 (specimen) EST AM EST Yonathan Smith MD POINT OF CARE TEST ORDERABLE S Performing Organization Address City/State/[place] [address] POCT Glucose (08/07/2017 12:04 AM EST) athologist Signature POC Glucose 107 65 - 199 [facility] Comment: Supplemental ranges: <140 mg/dL before meals <180 mg/dL all other times of the day Specimen Anatomical Collection Method Collection Time Receive d Time (Source) Location / / Volume Laterality Blood specimen 08/07/2017 12:04 8 (specimen) AM EST 12:04 AM EST Yonathan Smith MD POINT OF CARE TEST ORDERABLE S Performing Organization Address City/[facility]/ZIP Code Phon e Number [address] POCT Glucose (08/06/2017 7:56 PM EST) P athologist Signature POC Glucose 178 65 - 199 [facility] mg/dL [facility] Comment: Supplemental ranges: <140 mg/dL before meals <180 mg/dL all other times of the day Specimen Anatomical Collection Method Collection Time Receive d Time (Source) Location / / Volume Laterality Blood specimen 08/06/2017 7:56 PM 018 7:56 (specimen) EST PM EST Yonathan Smith MD POINT OF CARE TEST ORDERABLE S Performing Organization Address City/State/ZIP Code Phon e Number [address] [id number] (08/06/2017 2:32 PM EST) Component Value Ref Test Analysis Performed At Patholo gist Range Method Time Signature VB Text Department: Vascular Surgery Lab VASCUBASE Report Patient: [id number] (GREGORY HOANG) CPT: 0088325 ICD10: I99.8 Referring Physician: YONATHAN SMITH ?? [...]
Routine documented in this encounter Care Teams Supervisory Civil Engineer Relationship Specialty Start Date End Date Lovely Vicente MD PCP - General 04/16/[address] [place] [address] [address] [place] [address] documented as of this encounter
--- OUTSIDE RECORDS SUMMARY | 2022-04-22 08:21 | XMS_ITS | Encounter Summary ---
:1945 Author Organization [facility] [place] [address] Care Team Providers Name Role Phone Lovely Vicente MD Primary Care Provider Reason for Visit Auth/Cert Specialty Diagnoses / Procedures Referred By Contact Refer red To Contact Diagnoses Critical lower limb ischemia CELLULITIS RT FOOT Procedures EMERGENCY Referral ID Status Reason Start Date Expiration Date Visits Requ ested Visits Authorized [id number] 1 1 Encounter Details Date Type Department Care Team Description 08/09/2017 Surgery Main Operating Room Yonathan Smith AM PUTATION, Mary Hitchcock MD TRANSMETATARSAL ([facility] 12.71) [facility] DR Siddiqui [place] [address] [place] [address] [phone] Social History Tobacco Use Types Packs/Day Years [...] 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 Patient [...] Dorsalis Pedis (Ankle) Artery ?132 ? 0.94 ??Guayanilla-Biphasic ? Posterior Tibial (Ankle) Artery ??154 ? 1.10 ??Guayanilla-Biphasic ? Fourth Toe ? 67 ?0.48 ?? [...] For any problems or questions please call [phone] ZELDA Smith, police dispatcher Nurse Clinician For issues on weeknights after 5pm and weekends please call [phone] and ask for the Vascular Fellow collections officer. General Instructions None Future Appointments and Orders Future Appointments Provider Department Dept Phone 08/26/2017 4:00 PM Aurelia Rivera PA [facility] [place] [phone] 09/07/2017 3:00 PM LAB, THREE L Lab 3L [facility] [phone] 09/07/2017 4:00 PM Luz Prescott MD Endocrinology [facility] [place] [phone] 09/09/2017 8:00 AM Barbra Soares APRN Pain Management [facility] [place] [phone] Please bring a list of your current [...] For any problems or questions please call [phone] ZELDA Smith, police dispatcher Nurse Clinician For issues on weeknights after 5pm and weekends please call [phone] and ask for the Vascular Fellow collections officer. documented in this encounter Medications at Time [...] Note Patient Destination: [facility] ([facility]) [address] [id number] Transportation: with (at bedside) Time of Discharge: by 12 noon Level of Care: swing Patient Aware: yes Family Notified: yes Md to call report to: Yissel Quintero [employer] already called RN to call report to: [phone] Shirin Wolf Office of Care Management Pager [phone] Shirin Wolf RN - 08/16/2017 10:50 AM EST [facility] has offered pt swing bed. Pt and accept bed. will transport via car. [employer] Yissel Quintero aware; d/c paperwork will be completed by 12 noon. [facility] requests pt arrival by 1400 today; [employer], RN, and family aware. [employer] called [facility] and was told that they prefer pt to arrive with wound vac dressing applied but clamped. [employer] applied new wound vac dressing. RN has [facility] number to call report. PASSR completed; [employer] paged to request provider signature in highlighted [...] 08/16/2017 10:34 AM EST Office of Care Management/Ruby Developer Patient Name: Gregory Hoang : 1945 Patient has been offered a swing bed at [facility]. The patient will be transported by private transportation. No MD to MD report necessary Please call Nursing Report to [phone], ask for risk officer. Info to accompany patient: Narcotic Prescriptions Copies of Medication Administration Records and IV sheets for past 10 days. Plan: Ruby Developer will be available to the patient and Charging Plug Placer-RN and/or Clinical Material Handler for further assistance. Patient will be discharged to: [address] [id number] Radha Powers, Ruby Developer Mira Truong, VAMSI - 08/15/2017 10:05 PM EST [address] Flores to ask if he wanted to hold metoprolol dose. BP 95/58. OK to hold this dose Courtney Brito - 08/15/2017 3:26 PM EST Office of Care Management(OCM)/Ruby Developer(RS)/ D/C Planning re : Patient is [...] status. 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 Vac [...] patient's referral to: [facility] PHONE: [phone] FAX: [phone] CM spoke with RS who said that [...] rehab. Await recommendations from PT. Covering pager #[phone]. 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 Squeegee Tender Kaitlin Saha, RN Pager #[phone] Payam Rosales - 08/13/2017 2:37 PM EST [employer] Encounter Note Patient Name: Gregory Hoang : [id number] MR#: [id number] Admit Date: 08/06/2017 1:41 PM Hospital Day 7 days Narrative: Visited to introduce and assess acceptance of [facility] services. Pt was awake, alert, oriented and in chair and family was there. Assessment:Patient coping positively with stresses of illness/hospitalization at this time. Pt says that he is hoping to get better and his family was there. Pt says that he has family care and supportand taking one day at time. Intervention and Outcome: Provided emotional support and encouraging presence. 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 A letter describing our affiliations was reviewed with them and theywere educated about their right to choose where referrals are placed. Patient requests referral to [facility] [employer]. PHONE: [phone] FAX: [phone]. And Home NPWT (Negative Pressure Wound Therapy) aka wound vac device made available to pt. Serial # confirmed. Reviewed [facility] Proof of Delivery/Assignment of Benefits Statement(POD/AOB) Form w patient or authorized agent signing on behalf of patient. Copy of POD/AOB provided to pt and other copy faxed to [employer] @ fax# [phone] Expected date of discharge: 08/12/2017. 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 Address: [address] [place] [address] [place] [id number] (home) Mobile: Telephone Information: Referring Provider: No [...] SETUP performed by Manny Mcknight MD at [facility] OR ??? PRO CABG, ARTERIAL, SINGLE N/A 07/07/2017 @CABG, USING ARTERIAL GRAFT;SINGLE ARTERIAL GRAFT (WRVU 33.75) performed by Yuan Retana MD at [facility] OR ??? PRO CABG, ARTERY-VEIN, TWO N/A 07/07/2017 @CABG, TWO VENOUS GRAFTS & ARTERIAL GRAFT (WRVU 7.93) performed by Yuan Retana MD at [facility] OR ??? PRO COLONOSCOPY, REMV LESN, SNARE 01/16/2014 COLONOSCOPY, POLYPECTOMY, REMOVAL LESION BY SNARE performed by Nohemi Jaimes MD at [facility] ENDOSCOPY ??? PRO ENDOSCOPY W/VIDEO-ASST VEIN HARVEST, CABG Right 07/07/2017 ENDOSCOPIC HARVEST VEIN(S) FOR CABG (WRVU 0.31) performed by Yuan Retana MD at [facility] ??? 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 Heparin gtt continues to run. [...] of : 1945 AGE 72 y.o. Address: [address] [place] [address] [place] [phone] (home) Mobile: Telephone Information: Referring Provider: No [...] SETUP performed by Manny Mcknight MD at [facility] ??? PRO CABG, ARTERIAL, SINGLE N/A 07/07/2017 @CABG, USING ARTERIAL GRAFT;SINGLE ARTERIAL GRAFT (WRVU 33.75) performed by Yuan Retana MD at [facility] OR ??? PRO CABG, ARTERY-VEIN, TWO N/A 07/07/2017 @CABG, TWO VENOUS GRAFTS & ARTERIAL GRAFT (WRVU 7.93) performed by Yuan Retana MD at [facility] OR ??? PRO COLONOSCOPY, REMV LESN, SNARE 01/16/2014 COLONOSCOPY, POLYPECTOMY, REMOVAL LESION BY SNARE performed by Nohemi Jaimes MD at [facility] ENDOSCOPY ??? PRO ENDOSCOPY W/VIDEO-ASST VEIN HARVEST, CABG Right 07/07/2017 ENDOSCOPIC HARVEST VEIN(S) FOR CABG (WRVU 0.31) performed by Yuan Retana MD at [facility] ??? 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 Unsuccessful draw attempt, another clinical nursing intern will come [facility] to collect blood for PTT test. 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 Vascular resident collections officer and will forward result to the team prior to rounds. 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 Patient [...] SETUP performed by Manny Mcknight MD at [facility] OR ??? PRO CABG, ARTERIAL, SINGLE N/A 07/07/2017 @CABG, USING ARTERIAL GRAFT;SINGLE ARTERIAL GRAFT (WRVU 33.75) performed by Yuan Retana MD at [facility] ??? PRO CABG, ARTERY-VEIN, TWO N/A 07/07/2017 @CABG, TWO VENOUS GRAFTS & ARTERIAL GRAFT (WRVU 7.93) performed by Yuan Retana MD at [facility] OR ??? PRO COLONOSCOPY, REMV LESN, SNARE 01/16/2014 COLONOSCOPY, POLYPECTOMY, REMOVAL LESION BY SNARE performed by Nohemi Jaimes MD at [facility] ENDOSCOPY ??? PRO ENDOSCOPY W/VIDEO-ASST VEIN HARVEST, CABG Right 07/07/2017 ENDOSCOPIC HARVEST VEIN(S) FOR CABG (WRVU 0.31) performed by Yuan Retana MD at [facility] OR ??? PRO THYROIDECTOMY 03/28/2013 THYROIDECTOMY, TOTAL OR COMPLETE performed by Manny Mcknight MD at [facility] Functional Status/Social Hx: Quit [...] left blue toes with CTA showing R NETWORK LIAISON pseudoaneurysm (now thrombosed) and occluded ATs bilaterally. [...] 2.5x80 5. Completion RLE angiogram 6. L NETWORK LIAISON angiogram 7. 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 - L NETWORK LIAISON angriogram demonstrated: High femoral bifurcation over the proximal half of the femoral head. L NETWORK LIAISON access in the distal L NETWORK LIAISON. - Closure device: Mynx Technical Procedure: The [...] for a 45cm 5F Destination. V18 and [place] and QuickCross catheters were used to select [...] 5F. A stationed picture of the L NETWORK LIAISON was performed as the patient was noted to have a very high bifurcation. Access appeared in the distal R NETWORK LIAISON. Closure and sheath removal was performed with [...] PM EST 1440 report called to 5 [place] nurse Tessa RN documented in this encounter [...] sit/sit to supine -- Bed Mobility Goal, Hardin Level independent -- Bed Mobility Goal, Date [...] days -- Transfer Training Goal, Activity Type wuv-fc-kwzkb/dclfc-zf-ksf -- Transfer Train Goal, Hardin Level conditional independence -- Transfer Train Goal, [...] call cabello within reach, Hourly rounding by RN/PRODUCTION HONING MACHINE OPERATOR. Bed alarm / Chair alarm. [...] Smith MD - 08/15/2017 6:28 PM EST [facility] Operative Note Patient Name: Gregory Hoang : [id number] MR#: [id number] Case Date: 08/09/2017 Surgeon: Surgeon(s) and Role: [...] 2.5x80 5. Completion RLE angiogram 6. L NETWORK LIAISON angiogram 7. Mynx closure Precautions/Restrictions: fall, sternal [...] feet/ bed -> bathroom). Anticipated Discharge Disposition: senior living facility, other (see comments) (or swing bed) Pager: [phone] BASSAM ELIAS, PT 08/14/2017 Inpatient Physical Therapy [...] to Achieve by discharge Gait Training Goal, Hardin Level conditional independence;set up required Gait Training [...] choices are: 1- [facility] PHONE: [phone] FAX: [phone] 2- [facility] ([facility]) [address] [place] [address] 3- [facility]) [address] [place] [address] I have discussed Medicare/Private Insurance [...] RS/CM on Wednesday to follow-up. Covering pager #[phone] for today. Plan of Care - Henrique [...] with additional findings of pseudoaneurysm on R NETWORK LIAISON and bilateral anterior tibial artery occlusions. Was [...] an outpatient once discharged. Have patient call [phone] to set up an appointment. Follow-up: Dermatology will sign-off for now. Please do not hesitate to contact us if you have any questions orconcerns. Impression and Recommendations discussed with primary team on 08/13/2017. Karo Henderson MD Resident in Dermatology Section of Dermatology, Department of Surgery [facility] Pager [phone] Patient seen and evaluated with staff Heat Treat Inspector: Halima Cordero MD Section of Dermatology [facility] Level of Resident Supervision: Direct Supervision (The [...] Outcome: Ongoing (Interventions Implemented as Appropriate) 08/12/17 5076 Coping/Psychosocial Plan Of Care Reviewed With patient;spouse [...] 2.5x80 5. Completion RLE angiogram 6. L NETWORK LIAISON angiogram 7. Mynx closure Active Non-Hospital Problems [...] home with home health ([facility] PT&OT) Pager: [phone] YASIR TELLO OT 08/12/2017 Occupational Therapy Rehabilitation [...] 2.5x80 5. Completion RLE angiogram 6. L NETWORK LIAISON angiogram 7. Mynx closure Past Medical History: [...] with 24/7 assistance and maximal services) Pager: [phone] NICHOLAS MORA, PT 08/12/2017 Physical Therapy Rehabilitation [...] sit/sit to supine -- Bed Mobility Goal, Hardin Level independent -- Bed Mobility Goal, Outcome Achieved -- goal ongoing Goal: Gait Training Goal Stand Alone Therapy Goal Outcome: Ongoing (Interventions Implemented as Appropriate) 08/11/17 1310 08/12/17 1510 Gait Training Goal Gait Training Goal, Date Established 08/11/17 -- Gait Training Goal, Time to Achieve 5 - 7 days -- Gait Training Goal, Hardin Level conditional independence -- Gait Training Goal, [...] days -- Transfer Training Goal, Activity Type zwl-be-mqqom/jrogu-my-yhe -- Transfer Train Goal, Hardin Level conditional independence -- Transfer Training Goal, [...] Smith MD - 08/11/2017 2:52 PM EST [facility] Operative Note Patient Name: Gregory Hoang : [id number] MR#: [id number] Case Date: 08/11/2017 Surgeon: Surgeon(s) and Role: [...] 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 Completion RLE angiogram 6. L NETWORK LIAISON angiogram 7. Mynx closure He is very [...] Anticipated Discharge Disposition: inpatient rehabilitation facility Pager: [phone] LAWRENCE GONZALEZ, PT 08/11/2017 Physical Therapy Rehabilitation [...] to sit/sit to supine Bed Mobility Goal, Hardin Level independent Goal: Gait Training Goal Stand Alone Therapy Goal Outcome: Ongoing (Interventions Implemented as Appropriate) 08/11/17 1310 Gait Training Goal Gait Training Goal, Date Established 08/11/17 Gait Training Goal, Time to Achieve 5 - 7 days Gait Training Goal, Hardin Level conditional independence Gait Training Goal, Assist [...] 7 days Transfer Training Goal, Activity Type amw-zu-srjur/zsjhv-vb-loi Transfer Train Goal, Hardin Level conditional independence Plan of David DelloAnnetta [...] call cabello within reach, Hourly rounding by RN/PRODUCTION HONING MACHINE OPERATOR. Bed alarm / Chair alarm. [...] 04/05/2013 Hospitalizations Within the Past 30 Days: [facility] 07/20/2017 Anticipated Length Of Stay (If known): Expected Length of Hospitalization: 5-7 days2-3 days Current Decision-Making Capacity: Alert and oriented x 4 Advance Care Planning: on file Kisha Hoang [facility] [phone] Current Coping/Education/Information Needs: pt and spouse state [...] Health/Prescription Coverage: Primary Insurance: MEDICARE Secondary Insurance: ComplyMD ID Prescription Coverage: See above Preferred Pharmacy: [facility] Other: N/A Primary Care Provider: Lovely Vicente MD [phone] Patient/Caregiver Goals of Treatment: Patient plans to [...] of care planning. Kaitlin Saha RN Pager: [phone] Plan of Care - Melba Jaramillo RN [...] Overview Goal: Plan of Care Review 08/08/17 8174 Coping/Psychosocial Plan Of Care Reviewed With patient [...] call cabello within reach, Hourly rounding by RN/PRODUCTION HONING MACHINE OPERATOR. Bed alarm / Chair alarm. Patient-specific fall prevention interventions for sensory deficits provided, if applicable: [X] Yes CPG GOAL OUTCOME EVALUATION: Goal: Fall Prevention-Safe Patient Handling Outcome: Ongoing (Interventions Implemented as Appropriate) 08/06/17 1700 08/06/17199908/07/17 9604 Positioning Body Position -- up in chair [...] at bedside and MD TEAM Carrying pager [phone] contacted (via Radio page) and notified of [...] Cardiology Zulma Dolan MD [facility] [place], [place] [address] (Wo rk) 05/28/2022 Laboratory Appointment Lab 05/28/2022 Office Visit Cardiology Zulma Dolan [place] [address] Liz Poole PA [facility] [place] [address] 06/10/2022 Office Visit Dermatology Laura Scherer MD [facility] [address] [place], [place] [address] (Wo rk) documented as of [...] section. TYPE AND SCREEN Routine 08/09/2017 1:10 ([facility]/CGP/SHANDA) AM EST BASIC METABOLIC PANEL Routine 08/09/2017 [...] Organization Address City/State/ZIP [place] [address] [facility] [address] (ABNORMAL) Differential, Automated (08/16/2017 5:08 AM EST) [facility] Method Time Signature Neutrophils % 73.9 % [facility] LABORATORY Neutr Abs (ANC) 5.37 1.70 - [facility] 6.10 [facility] x10(3)/[facility] LABORATORY Lymphocytes % 10.1 % [facility] LABORATORY Lymphocytes Abs 0.7 (L) 0.9 - 3.2 [facility] x10(3)/[facility] LABORATORY Monocytes % 10.1 % [facility] LABORATORY Monocyte Abs 0.7 0.3 - 0.9 [facility] x10(3)/[facility] LABORATORY Eosinophils % 5.1 % [facility] LABORATORY Eosinophils Abs 0.4 0.0 - 0.4 [facility] x10(3)/[facility] LABORATORY Basophils % 0.4 % [facility] LABORATORY Basophils Abs 0.0 0.0 - 0.1 [facility] x10(3)/[facility] LABORATORY Immature Gran % 0.40 % WHITE [...] - 0.04 x10(3)/[facility] Y [facility] LABORATORY Specimen Anatomical Collection Method Collection Time Receive d Time (Source) Location / / Volume Laterality Blood specimen 08/16/2017 5:08 AM 018 5:20 (specimen) EST AM EST Resulting Agency Comment Spec In Lab Yonathan Smith MD HEMATOLOGY ORDERABLES Performing Organization Address City/State/ZIP [place] [address] [facility] [address] (ABNORMAL) Hemogram (08/16/2017 5:08 AM EST) Analysis Performed At Patho logist Time Signature WBC 7.3 4.0 - 9.5 [facility] x10(3)/[facility] LABORATORY RBC 3.36 (L) 4.58 - [facility] 5.54 [facility] x10(6)/[facility] LABORATORY Hemoglobin 9.7 (L) 13.7 - [facility] 16.5 gm/dL [facility] LABORATORY Hematocrit 30.3 (L) 40.5 - [facility] 48.5 % [facility] LABORATORY MCV 90.2 82.9 - [facility] 93.1 [facility] LABORATORY MCH 28.9 27.5 - [facility] 32.1 pg [facility] LABORATORY MCHC 32.0 32.0 - [facility] 35.7 gm/dL [facility] LABORATORY Platelets 282 145 - 357 [facility] x10(3)/[facility] LABORATORY RDWSD 53.9 (H) 36.0 - [facility] 45.0 [facility] LABORATORY RDWCV 16.5 (H) 11.4 - [facility] 13.8 % [facility] LABORATORY MPV 9.0 7.6 - 12.9 [facility] LABORATORY nRBC % Auto 0.0 % [facility] LABORATORY nRBC Abs Auto 0.000 0.000 - [facility] 0.000 [facility] x10(3)/[facility] LABORATORY Specimen Anatomical Collection Method Collection Time Receive d Time (Source) Location / / Volume Laterality Blood specimen 08/16/2017 5:08 AM 018 5:20 (specimen) EST AM EST Resulting Agency Comment Spec In Lab Yonathan Smith MD HEMATOLOGY ORDERABLES Performing Organization Address City/State/ZIP [place] [address] (ABNORMAL) Basic Metabolic Panel (non-fasting) (08/16/2017 5:08 AM EST) P athologist Signature Glucose Lvl 141 65 - 199 [facility] mg/dL [facility] [...] HOSPITAL LABORATORY Estimated GFR 57 (L) >=60 [facility] LABORATORY Comment: The reported eGFR should be multiplied b y 1.2 for patients. The MDRD is not an appropriate measure o f renal function for patients with body mass extremes or in patients with acute kidney failure. http://Mediamorph/DHnkdep http://Mediamorph/DHMCnkf Specimen Anatomical Collection Method Collection Time Receive d Time (Source) Location / / Volume Laterality Blood specimen 08/16/2017 5:08 AM 018 5:20 (specimen) EST AM EST Resulting Agency Comment Spec In Lab Yonathan Smith MD CHEMISTRY ORDERABLES Performing Organization Address City/State/ZIP [place] [address] (ABNORMAL) Prothrombin Time (08/16/2017 [...] City/[facility]/ZIP Code Phon e Number [address] POCT Glucose (08/16/2017 4:09 AM EST) athologist Signature POC Glucose 147 65 - 199 [facility] mg/dL [facility] [...] City/[facility]/ZIP Code Phon e Number [address] POCT Glucose (08/15/2017 11:56 [...] City/[facility]/ZIP Code Phon e Number [address] POCT Glucose (08/15/2017 8:05 [...] Organization Address City/State/ZIP Code Phon e [place] [address] (ABNORMAL) POCT Glucose (08/15/2017 [...] Organization Address City/State/[place] [address] POCT Glucose (08/15/2017 12:04 PM EST) athologist Signature POC Glucose 135 65 - 199 [place] [facility] mg/dL [facility] [...] Organization Address City/State/[place] [address] POCT Glucose (08/15/2017 7:36 AM EST) athologist Signature POC Glucose 124 65 - 199 [place] [facility] mg/dL [facility] [...] Organization Address City/State/[place] [address] (ABNORMAL) Differential, Automated (08/15/2017 6:22 AM EST) [facility] Method Time Signature Neutrophils % 76.1 % [facility] LABORATORY Neutr Abs (ANC) 6.62 (H) 1.70 - [facility] 6.10 [facility] x10(3)/[facility] LABORATORY Lymphocytes % 9.3 % [facility] LABORATORY Lymphocytes Abs 0.8 (L) 0.9 - 3.2 [facility] x10(3)/[facility] LABORATORY Monocytes % 9.4 % [facility] LABORATORY Monocyte Abs 0.8 0.3 - 0.9 [facility] x10(3)/[facility] LABORATORY Eosinophils % 4.0 % [facility] LABORATORY Eosinophils Abs 0.4 0.0 - 0.4 [facility] x10(3)/[facility] LABORATORY Basophils % 0.6 % [facility] LABORATORY Basophils Abs 0.0 0.0 - 0.1 [facility] x10(3)/[facility] LABORATORY Immature [...] City/[facility]/ZIP Code Phon e Number [address] (ABNORMAL) Hemogram (08/15/2017 6:22 AM EST) Analysis Performed At Patho logist Time Signature WBC 8.7 4.0 - 9.5 [facility](3[facility] LABORATORY RBC 3.21 (L) 4.58 - [place] [facility] 5.54 [facility] x10(6)/[facility] LABORATORY Hemoglobin 9.1 (L) 13.7 - [facility] 16.5 gm/dL [facility] LABORATORY Hematocrit 29.0 (L) 40.5 - [facility] 48.5 % [facility] LABORATORY MCV 90.3 82.9 - [facility] 93.1 [facility] LABORATORY MCH 28.3 27.5 - [facility] 32.1 pg [facility] LABORATORY MCHC 31.4 (L) 32.0 - [facility] 35.7 gm/dL [facility] LABORATORY Platelets 254 145 - 357 [facility] x10(3)/[facility] LABORATORY RDWSD 53.9 (H) 36.0 - [facility] 45.0 [facility] LABORATORY RDWCV 16.3 (H) 11.4 - [facility] 13.8 % [facility] LABORATORY MPV 8.8 7.6 - 12.9 [facility] LABORATORY nRBC % Auto 0.0 % [facility] LABORATORY nRBC Abs Auto 0.000 0.000 - [facility] 0.000 [facility] x10(3)/[facility] LABORATORY Specimen Anatomical Collection Method Collection Time Receive d Time (Source) Location / / Volume Laterality Blood specimen 08/15/2017 6:22 AM 018 6:33 (specimen) EST AM EST Resulting Agency Comment Spec In Lab Yonathan Smith MD HEMATOLOGY ORDERABLES Performing Organization Address City/State/ZIP Code Phon e Number [facility] [place] [address] (ABNORMAL) Basic Metabolic Panel (non-fasting) (08/15/2017 6:22 AM EST) P athologist Signature Glucose Lvl 118 65 - 199 [facility] mg/dL [facility] [...] [facility] LAB[facility]ATORY Estimated GFR >60 >=60 [facility] LABORATORY Comment: The reported eGFR should be multiplied b y 1.2 for patients. The MDRD is not an appropriate measure o f renal function for patients with body mass extremes or in patients with acute kidney failure. [email or web address] [email or web address] Specimen Anatomical Collection Method Collection Time Receive d Time (Source) Location / / Volume Laterality Blood specimen 08/15/2017 6:22 AM 018 6:33 (specimen) EST AM EST Resulting Agency Comment Spec In Lab Yonathan Smith MD CHEMISTRY ORDERABLES Performing Organization Address City/State/ZIP Code Phon e Number [address] (ABNORMAL) Prothrombin Time (08/15/2017 [...] Address City/State/ZIP Code Phon e Number [address] POCT Glucose (08/15/2017 4:33 AM EST) athologist Signature POC Glucose 164 65 - 199 [facility] [...] Address City/State/ZIP Code Phon e Number [address] POCT Glucose (08/15/2017 12:12 AM EST) athologist Signature POC Glucose 89 65 - 199 [facility] mg/dL [facility] [...] Address City/State/ZIP Code Phon e Number [address] (ABNORMAL) POCT Glucose (08/14/2017 8:07 PM EST) athologist Signature POC Glucose 204 (H) 65 - 199 [place] ZHAORY[facility] mg/dL [facility] [...] City/[facility]/ZIP [place] [address] POCT Glucose (08/14/2017 5:11 PM EST) athologist Signature POC Glucose 174 65 - 199 [place] ZHAORYAN mg/dL [facility] [...] Organization Address City/State/Z[place] [address] POCT Glucose (08/14/2017 12:10 [...] Address City/State/ZIP Code Phon e Number [address] POCT Glucose (08/14/2017 8:07 AM EST) P athologist Signature POC Glucose 158 65 - 199 [facility] mg/dL [facility] [...] Address City/State/ZIP Code Phon e Number [address] (ABNORMAL) Differential, Automated (08/14/2017 4:52 AM EST) Patholo gist Method Time Signature Neutrophils % 78.6 % [facility] LABORATORY Neutr Abs (ANC) 7.70 (H) 1.70 - [facility] 6.10 [facility] x10(3)/[facility] LABORATORY Lymphocytes % 7.8 % [facility] LABORATORY Lymphocytes Abs 0.8 (L) 0.9 - 3.2 [facility] x10(3)/[facility] LABORATORY Monocytes % 8.8 % [facility] LABORATORY Monocyte Abs 0.9 0.3 - 0.9 [facility] x10(3)/[facility] LABORATORY Eosinophils % 4.0 % [facility] LABORATORY Eosinophils Abs 0.4 0.0 - 0.4 [facility] x10(3)/[facility] LABORATORY Basophils % 0.5 % [facility] LABORATORY Basophils Abs 0.0 0.0 - 0.1 [facility] x10(3)/[facility] LABORATORY Immature Gran % 0.30 [...] - 0.04 x10(3)/[facility] MAR Y [facility] LABORATORY Specimen Anatomical Collection Method Collection Time Receive d Time (Source) Location / / Volume Laterality Blood specimen 08/14/2017 4:52 AM 018 5:08 (specimen) EST AM EST Resulting Agency Comment Spec In Lab Yonathan Smith MD HEMATOLOGY ORDERABLES Performing Organization Address City/State/Z[place] [address] (ABNORMAL) Hemogram (08/14/2017 4:52 AM EST) Analysis Performed At Patho logist Time Signature WBC 9.8 (H) 4.0 - 9.5 [facility] x10(3)/[facility] LABORATORY RBC 3.32 (L) 4.58 - [facility] 5.54 [facility] x10(6)/[facility] LABORATORY Hemoglobin 9.5 (L) 13.7 - [facility] 16.5 gm/dL [facility] LABORATORY Hematocrit 30.3 (L) 40.5 - [facility] 48.5 % [facility] LABORATORY MCV 91.3 82.9 - [facility] 93.1 [facility] LABORATORY MCH 28.6 27.5 - [facility] 32.1 pg [facility] LABORATORY MCHC 31.4 (L) 32.0 - [facility] 35.7 gm/dL [facility] LABORATORY Platelets 263 145 - 357 [facility] x10(3)/[facility] LABORATORY RDWSD 54.8 (H) 36.0 - [facility] 45.0 [facility] LABORATORY RDWCV 16.5 (H) 11.4 - [facility] 13.8 % [facility] LABORATORY MPV 9.1 7.6 - 12.9 [facility] LABORATORY nRBC % Auto 0.0 % [facility] LABORATORY nRBC Abs Auto 0.000 0.000 - [facility] 0.000 [facility] x10(3)/[facility] LABORATORY Specimen Anatomical Collection Method Collection Time Receive d Time (Source) Location / / Volume Laterality Blood specimen 08/14/2017 4:52 AM 018 5:08 (specimen) EST AM EST Resulting Agency Comment Spec In Lab Yonathan Smith MD HEMATOLOGY ORDERABLES Performing Organization Address City/[facility]/ZIP [place] [address] (ABNORMAL) Prothrombin Time (08/14/2017 [...] City/[facility]/ZIP [place] [address] (ABNORMAL) Basic Metabolic Panel (non-fasting) (08/14/2017 4:52 AM EST) athologist Signature Glucose Lvl 135 65 - 199 [facility] mg/dL [facility] [...] HOSPITAL LABORATORY Estimated GFR 52 (L) >=60 [facility] LABORATORY Comment: The reported eGFR should be multiplied b y 1.2 for patients. The MDRD is not an appropriate measure o f renal function for patients with body mass extremes or in patients with acute kidney failure. [email or web address] [email or web address] Specimen Anatomical Collection Method Collection Time Receive d Time (Source) Location / / Volume Laterality Blood specimen 08/14/2017 4:52 AM 018 5:08 (specimen) EST AM EST Resulting Agency Comment Spec In Lab Yonathan Smith MD CHEMISTRY ORDERABLES Performing Organization Address City/[facility]/ZIP Code Phon e Number [address] POCT Glucose (08/14/2017 3:56 AM EST) P athologist Signature POC Glucose 135 65 - 199 [facility] mg/dL [facility] [...] City/[facility]/[place] [address] POCT Glucose (08/13/2017 11:13 [...] Organization Address City/State/Z[place] [address] (ABNORMAL) POCT Glucose (08/13/2017 8:08 PM EST) athologist Signature POC Glucose 204 (H) 65 - 199 [facility] mg/dL [facility] [...] Organization Address City/State/Z[place] [address] POCT Glucose (08/13/2017 4:02 PM EST) athologist Signature POC Glucose 145 65 - 199 [facility] mg/dL [facility] [...] Organization Address City/State/ZIP [place] [address] POCT Glucose (08/13/2017 11:31 AM EST) athologist Signature POC Glucose 179 65 - 199 [facility] mg/dL [facility] - [...] City/[facility]/Z[place] [address] (ABNORMAL) POCT Glucose (08/13/2017 10:16 AM EST) athologist Signature POC Glucose 211 (H) 65 - 199 [facility] mg/dL [facility] - [...] City/[facility]/[place] [address] JULIAN, legs, multiple levels (08/13/2017 7:42 AM EST) Component Value Ref Test [facility] Method Time Signature VB Text Department: Vascular Surgery Lab VASCUBASE Report Patient: [id number] (GREGORY HOANG) CPT: 51303 ICD10: I99.8 Referring Physician: YONATHAN SMITH ?? Indications: s/p R 1,2,3 toe amps with red left foot, need n ew baseline Diabetes mellitus: yes ICD10 Diagnosis Code: I99.8 Findings: Right ?Pressure (mm Hg) ?? JULIAN ??Waveform ?TBI ?? Brachial Artery ?138 ? Dorsalis Pedis (Ankle) Arter y ?132 ? 0.94 ??Guayan[place]- Biphasic ? Posterior Tibial (Ankle) Art anila ??154 ? 1.10 ??[place]ayan[place]-Biphasic ? Fourth Toe ? 67 ? 0.48 [...] 156 65 - 199 [facility] mg/dL [facility] [...] Organization Address City/State/Z[place] [address] (ABNORMAL) Differential, Automated (08/13/2017 5:33 AM EST) Patholo gist Method Time Signature Neutrophils % 77.8 % [facility] LABORATORY Neutr Abs (ANC) 7.83 (H) 1.70 - [facility] 6.10 [facility] x10(3)/[facility] LABORATORY Lymphocytes % 8.4 % [facility] LABORATORY Lymphocytes Abs 0.8 (L) 0.9 - 3.2 [facility] x10(3)/[facility] LABORATORY Monocytes % 8.3 % [facility] LABORATORY Monocyte Abs 0.8 0.3 - 0.9 [facility] x10(3)/[facility] LABORATORY Eosinophils % 4.6 % [facility] LABORATORY Eosinophils Abs 0.5 (H) 0.0 - 0.4 [facility] x10(3)/[facility] LABORATORY Basophils % 0.5 % [facility] LABORATORY Basophils Abs 0.0 0.0 - 0.1 [facility] x10(3)/[facility] LABORATORY Immature Gran % 0.40 [...] - 0.04 x10(3)/[facility] MAR Y [facility] LABORATORY Specimen Anatomical Collection Method Collection Time Receive d Time (Source) Location / / Volume Laterality Blood specimen 08/13/2017 5:33 AM 018 6:04 (specimen) EST AM EST Resulting Agency Comment Spec In Lab Yonathan Smith MD HEMATOLOGY ORDERABLES Performing Organization Address City/State/ZIP Code Phon e Number [place] [id number] LAB[address]ORY Drive (ABNORMAL) Hemogram (08/13/2017 5:33 AM EST) Analysis Performed At Patho logist Time Signature WBC 10.1 (H) 4.0 - 9.5 [facility] x10(3)/[facility] LABORATORY RBC 3.21 (L) 4.58 - [facility] 5.54 [facility] x10(6)/[facility] LABORATORY Hemoglobin 9.2 (L) 13.7 - [facility] 16.5 gm/dL [facility] LABORATORY Hematocrit 29.6 (L) 40.5 - [facility] 48.5 % [facility] LABORATORY MCV 92.2 82.9 - [facility] 93.1 [facility] LABORATORY MCH 28.7 27.5 - [facility] 32.1 pg [facility] LABORATORY MCHC 31.1 (L) 32.0 - [facility] 35.7 gm/dL [facility] LABORATORY Platelets 263 145 - 357 [facility] x10(3)/[facility] LABORATORY RDWSD 54.8 (H) 36.0 - [facility] 45.0 [facility] LABORATORY RDWCV 16.4 (H) 11.4 - [facility] 13.8 % [facility] LABORATORY MPV 9.2 7.6 - 12.9 [facility] LABORATORY nRBC % Auto 0.0 % [facility] LABORATORY nRBC Abs Auto 0.000 0.000 - [facility] 0.000 [facility] x10(3)/[facility] LABORATORY Specimen Anatomical Collection Method Collection Time Receive d Time (Source) Location / / Volume Laterality Blood specimen 08/13/2017 5:33 AM 018 6:04 (specimen) EST AM EST Resulting Agency Comment Spec In Lab Yonathan Smith MD HEMATOLOGY ORDERABLES Performing Organization Address City/State/Z[place] [address] (ABNORMAL) Prothrombin Time (08/13/2017 [...] Organization Address City/State/Z[place] [address] (ABNORMAL) Basic Metabolic Panel (non-fasting) (08/13/2017 5:33 AM EST) P athologist Signature Glucose Lvl 126 65 - 199 [facility] mg/dL [facility] [...] [facility] Estimated GFR >60 >=60 [facility] LABORATORY Comment: The reported eGFR should be multiplied b y 1.2 for patients. The MDRD is not an appropriate measure o f renal function for patients with body mass extremes or in patients with acute kidney failure. [email or web address] [email or web address] Specimen Anatomical Collection Method Collection Time Receive d Time (Source) Location / / Volume Laterality Blood specimen 08/13/2017 5:33 AM 018 6:04 (specimen) EST AM EST Resulting Agency Comment Spec In Lab Yonathan Smith MD CHEMISTRY ORDERABLES Performing Organization Address City/State/ZIP Code Phon e Number [address] POCT Glucose (08/13/2017 4:29 [...] City/[facility]/ZIP [place] [address] POCT Glucose (08/12/2017 11:28 [...] City/[facility]/ZIP Code Phon e Number [address] (ABNORMAL) POCT Glucose (08/12/2017 [...] Address City/State/ZIP Code Phon e Number [address] POCT Glucose (08/12/2017 4:24 [...] Address City/State/ZIP Code Phon e Number [address] POCT Glucose (08/12/2017 12:00 [...] Address City/State/ZIP Code Phon e Number [address] POCT Glucose (08/12/2017 7:25 AM EST) athologist Signature POC Glucose 152 65 - 199 [facility] mg/dL [facility] [...] Organization Address City/State/ZIP [place] [address] (ABNORMAL) Differential, Automated (08/12/2017 6:29 AM EST) [facility] Method Time Signature Neutrophils % 78.7 % [facility] LABORATORY Neutr Abs (ANC) 7.94 (H) 1.70 - [facility] 6.10 [facility] x10(3)/[facility] LABORATORY Lymphocytes % 8.8 % [facility] LABORATORY Lymphocytes Abs 0.9 0.9 - 3.2 [facility] x10(3)/[facility] LABORATORY Monocytes % 7.8 % [facility] LABORATORY Monocyte Abs 0.8 0.3 - 0.9 [facility] x10(3)/[facility] LABORATORY Eosinophils % 3.9 % [facility] LABORATORY Eosinophils Abs 0.4 0.0 - 0.4 [facility] x10(3)/[facility] LABORATORY Basophils % 0.3 % [facility] LABORATORY Basophils Abs 0.0 0.0 - 0.1 [facility] x10(3)/[facility] LABORATORY Immature Gran % 0.50 [...] Address City/State/ZIP Code Phon e Number [address] (ABNORMAL) Hemogram (08/12/2017 6:29 AM EST) Analysis Performed At Patho logist Time Signature WBC 10.1 (H) 4.0 - 9.5 [facility] x[facility](3)/[facility] LABORATORY RBC 3.02 (L) 4.58 - [facility] 5.54 [facility] x10(6)/[facility] LABORATORY Hemoglobin 8.7 (L) 13.7 - [facility] 16.5 gm/dL [facility] LABORATORY Hematocrit 28.1 (L) 40.5 - [facility] 48.5 % [facility] LABORATORY MCV 93.0 82.9 - [facility] 93.1 [facility] LABORATORY MCH 28.8 27.5 - [facility] 32.1 pg [facility] LABORATORY MCHC 31.0 (L) 32.0 - [facility] 35.7 gm/dL [facility] LABORATORY Platelets 223 145 - 357 [facility] x10(3)/[facility] LABORATORY RDWSD 56.1 (H) 36.0 - [facility] 45.0 [facility] LABORATORY RDWCV 16.4 (H) 11.4 - [facility] 13.8 % [facility] LABORATORY MPV 9.0 7.6 - 12.9 [facility] LABORATORY nRBC % Auto 0.0 % [facility] LABORATORY nRBC Abs Auto 0.000 0.000 - [facility] 0.000 [facility] x10(3)/[facility] LABORATORY Specimen Anatomical Collection Method Collection Time Receive d Time (Source) Location / / Volume Laterality Blood specimen 08/12/2017 6:29 AM 018 6:38 (specimen) EST AM EST Resulting Agency Comment Spec In Lab Yonathan Smith MD HEMATOLOGY ORDERABLES Performing Organization Address City/State/[place] [address] (ABNORMAL) Prothrombin Time (08/12/2017 [...] Organization Address City/State/[place] [address] (ABNORMAL) Basic Metabolic Panel (non-fasting) (08/12/2017 6:29 AM EST) athologist Signature Glucose Lvl 151 65 - 199 [facility] mg/dL [facility] [...] [facility] Estimated GFR >60 >=60 [facility] LABORATORY Comment: The reported eGFR should be multiplied b y 1.2 for patients. The MDRD is not an appropriate measure o f renal function for patients with body mass extremes or in patients with acute kidney failure. http://Mediamorph/DHnkdep [email or web address]/DHMCnkf Specimen Anatomical Collection Method Collection Time Receive d Time (Source) Location / / Volume Laterality Blood specimen 08/12/2017 6:29 AM 018 6:38 (specimen) EST AM EST Resulting Agency Comment Spec In Lab Yonathan Smith MD CHEMISTRY ORDERABLES Performing Organization Address City/[facility]/ZIP Code Phon e Number [address] POCT Glucose (08/12/2017 4:08 AM EST) athologist Signature POC Glucose 181 65 - 199 [facility]dL [facility] [...] Organization Address City/State/[place] [address] (ABNORMAL) POCT Glucose (08/12/2017 12:17 AM EST) P athologist Signature POC Glucose 221 (H) 65 - 199 [facility] mg/dL [facility] - [...] City/[facility]/ZIP Code Phon e Number [address] (ABNORMAL) POCT Glucose (08/11/2017 8:52 PM EST) athologist Signature POC Glucose 221 (H) 65 - 199 [facility] mg/dL [facility] [...] City/[facility]/ZIP [place] [address] POCT Glucose (08/11/2017 5:59 PM EST) athologist Signature POC Glucose 169 65 - 199 [facility] mg/dL [facility] [...] City/[facility]/ZIP [place] [address] (ABNORMAL) POCT Glucose (08/11/2017 [...] Address City/State/ZIP Code Phon e Number [address] POCT Glucose (08/11/2017 12:04 PM EST) athologist Signature POC Glucose 182 65 - 199 [facility] mg/dL [facility] - [...] Address City/State/ZIP Code Phon e Number [address] POCT Glucose (08/11/2017 7:31 AM EST) athologist Signature POC Glucose 156 65 - 199 [facility] mg/dL [facility] - [...] Address City/State/ZIP Code Phon e Number [address] (ABNORMAL) Differential, Automated (08/11/2017 6:16 AM EST) [facility] gist Method Time Signature Neutrophils % 83.7 % [facility] LABORATORY Neutr Abs (ANC) 10.76 (H) 1.70 - [facility] 6.10 [facility] x10(3)/[facility] LABORATORY Lymphocytes % 6.0 % [facility] LABORATORY Lymphocytes Abs 0.8 (L) 0.9 - 3.2 [facility] x10(3)/[facility] LABORATORY Monocytes % 7.5 % [facility] LABORATORY Monocyte Abs 1.0 (H) 0.3 - 0.9 [facility] x10(3)/[facility] LABORATORY Eosinophils % 2.0 % [facility] LABORATORY Eosinophils Abs 0.3 0.0 - 0.4 [facility] x10(3)/[facility] LABORATORY Basophils % 0.3 % [facility] LABORATORY Basophils Abs 0.0 0.0 - 0.1 [facility] x10(3)/[facility] LABORATORY Immature Gran % 0.50 [...] Organization Address City/State/ZIP [place] [address] (ABNORMAL) Hemogram (08/11/2017 6:16 AM EST) Analysis Performed At Patho logist Time Signature WBC 12.9 (H) 4.0 - 9.5 [facility] x10(3)/[facility] LABORATORY RBC 3.28 (L) 4.58 - [facility] 5.54 [facility] x10(6)/[facility] LABORATORY Hemoglobin 9.5 (L) 13.7 - [facility] 16.5 gm/dL [facility] LABORATORY Hematocrit 29.8 (L) 40.5 - [facility] 48[facility] % [facility] LABORATORY MCV 90.9 82.9 - [facility] 93.1 [facility] LABORATORY MCH 29.0 27.5 - [place] RYAN 32.1 pg [facility] LABORATORY MCHC 31.9 (L) 32.0 - [facility] DAVIS 35.7 gm/dL [facility] LABORATORY Platelets 236 145 - 357 [facility] x10(3)/[facility] LABORATORY RDWSD 53.5 (H) 36.0 - [facility] 45.0 [facility] LABORATORY RDWCV 16.3 (H) 11.4 - [facility] 13.8 % [facility] LABORATORY MPV 8.8 7.6 - 12.9 [facility] LABORATORY nRBC % Auto 0.0 % [facility] LABORATORY nRBC Abs Auto 0.000 0.000 - [facility] 0.000 [facility] x10(3)/[facility] LABORATORY Specimen Anatomical Collection Method Collection Time Receive d Time (Source) Location / / Volume Laterality Blood specimen 08/11/2017 6:16 AM 018 6:24 (specimen) EST AM EST Resulting Agency Comment Spec In Lab Yonathan Smith MD HEMATOLOGY ORDERABLES Performing Organization Address City/State/[place] [address] (ABNORMAL) Prothrombin Time (08/11/2017 [...] City/[facility]/ZIP [place] [address] Basic Metabolic Panel (non-fasting) (08/11/2017 6:16 AM EST) athologist Signature Glucose Lvl 139 65 - 199 [facility] mg/dL [facility] [...] [facility] LABORATORY Estimated GFR >60 >=60 [facility] LABORATORY Comment: The reported eGFR should be multiplied b y 1.2 for patients. The MDRD is not an appropriate measure o f renal function for patients with body mass extremes or in patients with acute kidney failure. http://SpotRight.Mesuro/DHnkdep http://SpotRight.Mesuro/DHMCnkf Specimen Anatomical Collection Method Collection Time Receive d Time (Source) Location / / Volume Laterality Blood specimen 08/11/2017 6:16 AM 018 6:24 (specimen) EST AM EST Resulting Agency Comment Spec In Lab Yonathan Smith MD CHEMISTRY ORDERABLES Performing Organization Address City/[facility]/ZIP Code Phon e Number [address] POCT Glucose (08/11/2017 4:07 [...] Address City/State/ZIP Code Phon e Number [address] POCT Glucose (08/10/2017 11:59 [...] Organization Address City/State/Z[place] [address] POCT Glucose (08/10/2017 8:12 PM EST) athologist Signature POC Glucose 156 65 - 199 [facility] mg/dL [facility] [...] Organization Address City/State/Z[place] [address] (ABNORMAL) POCT Glucose (08/10/2017 4:42 PM EST) P athologist Signature POC Glucose 211 (H) 65 - 199 [facility] mg/dL [facility] [...] City/State/ZIP Code Phon e Number [place] [id number] HOSPITAL LABORATORY Drive (ABNORMAL) Differential, Automated (08/10/2017 2:30 PM EST) Patholo gist Method Time Signature Neutrophils % 87.6 % [facility] LABORATORY Neutr Abs (ANC) 9.90 (H) 1.70 - [facility] 6.10 [facility] x10(3)/[facility] L LABORATORY Lymphocytes % 4.3 % [facility] LABORATORY Lymphocytes Abs 0.5 (L) 0.9 - 3.2 [facility] x10(3)/[facility] LABORATORY Monocytes % 6.0 % [facility] LABORATORY Monocyte Abs 0.7 0.3 - 0.9 [facility] x10(3)/[facility] LABORATORY Eosinophils % 1.1 % [facility] LABORATORY Eosinophils Abs 0.1 0.0 - 0.4 [facility] x10(3)/[facility] LABORATORY Basophils % 0.4 % [facility] LABORATORY Basophils Abs 0.0 0.0 - 0.1 [facility] x10(3)/[facility] LABORATORY Immature [...] Organization Address City/State/[place] [address] (ABNORMAL) Hemogram (08/10/2017 2:30 PM EST) Analysis Performed At Patho logist Time Signature WBC 11.3 (H) 4.0 - 9.5 [facility] x10(3)/[facility] LABORATORY RBC 3.13 (L) 4.58 - [facility] 5.54 [facility] x10(6)/[facility] LABORATORY Hemoglobin 8.9 (L) 13.7 - [facility] 16.5 gm/dL [facility] LABORATORY Hematocrit 28.4 (L) 40.5 - [facility] 48.5 % [facility] LABORATORY MCV 90.7 82.9 - [facility] 93.1 [facility] LABORATORY MCH 28.4 27.5 - [facility] 32.1 pg [facility] LABORATORY MCHC 31.3 (L) 32.0 - [facility] 35.[facility] gm/dL [facility] LABORATORY Platelets 213 145 - 357 [facility] x10(3)/[facility] LABORATORY RDWSD 53.7 (H) 36.0 - [facility] 45.0 [facility] LABORATORY RDWCV 16.4 (H) 11.4 - [facility] 13.8 % [facility] LABORATORY MPV 8.9 7.6 - 12.9 [facility] LABORATORY nRBC % Auto 0.0 % [facility] LABORATORY nRBC Abs Auto 0.000 0.000 - [facility] 0.000 [facility] x10(3)/[facility] LABORATORY Specimen Anatomical Collection Method Collection Time Receive d Time (Source) Location / / Volume Laterality Blood specimen 08/10/2017 2:30 PM 018 2:48 (specimen) EST PM EST Resulting Agency Comment Spec In Lab Yonathan Smith MD HEMATOLOGY ORDERABLES Performing Organization Address City/State/ZIP Code Phon e Number [address] (ABNORMAL) POCT Glucose (08/10/2017 1:50 PM EST) athologist Signature POC Glucose 243 (H) 65 - 199 [facility] mg/dL [facility] [...] City/[facility]/ZIP Code Phon e Number [address] POCT Glucose (08/10/2017 11:21 AM EST) athologist Signature POC Glucose 156 65 - 199 [facility] mg/dL [facility] - [...] City/[facility]/ZIP [place] [address] (ABNORMAL) Differential, Automated (08/10/2017 10:28 AM EST) [facility] Time Signature Neutrophils % 85.3 % [facility] LABORATORY Neutr Abs (ANC) 9.43 (H) 1.70 - [facility] 6.10 [facility] x10(3)/[facility] L LABORATORY Lymphocytes % 5.5 % [facility] LABORATORY Lymphocytes Abs 0.6 (L) 0.9 - 3.2 [facility] x10(3)/[facility] LABORATORY Monocytes % 5.9 % [facility] LABORATORY Monocyte Abs 0.6 0.3 - 0.9 [facility] x10(3)/[facility] LABORATORY Eosinophils % 2.1 % [facility] LABORATORY Eosinophils Abs 0.2 0.0 - 0.4 [facility] x10(3)/[facility] LABORATORY Basophils % 0.4 % [facility] LABORATORY Basophils Abs 0.0 0.0 - 0.1 [facility] x10(3)/[facility] LABORATORY Immature Gran % 0.80 [...] Organization Address City/State/Z[place] [address] (ABNORMAL) Hemogram (08/10/2017 10:28 AM EST) Analysis Performed At Patho logist Time Signature WBC 11.0 (H) 4.0 - 9.5 [facility] x10(3)/[facility] LABORATORY RBC 3.02 (L) 4.58 - [facility] 5.54 [facility] x10(6)/[facility] LABORATORY Hemoglobin 8.8 (L) 13.7 - [facility] 16.[facility] gm/dL [facility] LABORATORY Hematocrit 28.1 (L) 40.5 - [facility] 48.5 % [facility] LABORATORY MCV 93.0 82.9 - [facility] 93.1 [facility] MCH 29.1 27.5 - [facility] 32.1 pg [facility] MCHC 31.3 (L) 32.0 - [place] 35.7 gm/dL [facility] Platelets 207 145 - 357 [facility] x10(3)/[facility] LABORATORY RDWSD 55.3 (H) 36.0 - [facility] R[facility] 45.0 [facility] RDWCV 16.4 (H) 11.4 - [facility] 13.8 % [facility] MPV 9.0 7.6 - 12.9 [facility] LABORATORY nRBC % Auto 0.0 % [facility] nRBC Abs Auto 0.000 0.000 - [facility] 0.000 [facility] x10(3)/[facility] LABORATORY Specimen Anatomical Collection Method Collection Time Receive d Time (Source) Location / / Volume Laterality Blood specimen 08/10/2017 10:28 8 (specimen) AM EST 10:35 AM EST Resulting Agency Comment Spec In Lab Yonathan Smith MD HEMATOLOGY ORDERABLES Performing Organization Address City/State/Z[place] [address] VS Angiogram/intervention (vascular) (08/10/2017 [...] 2.5x80 5. Completion RLE angiogram 6. L NETWORK LIAISON angiogram 7. 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 - L NETWORK LIAISON angriogram demonstrated: High fe moral bifurcation over the proximal half of the femoral head. L NETWORK LIAISON access in the distal L NETWORK LIAISON. - Closure device: Mynx Technical Procedure: ?The [...] for a 45cm 5F Destination. V18 and Dallas a nd QuickCross catheters were used to [...] bifurcation. Access appeared in the distal R NETWORK LIAISON. Closure and sheath removal was performed with [...] 2.5x80 5. Completion RLE angiogram 6. L NETWORK LIAISON angiogram 7. 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 - L NETWORK LIAISON angriogram demonstrated: High fe moral bifurcation over the proximal half of the femoral head. L NETWORK LIAISON access in the distal L NETWORK LIAISON. - Closure device: Mynx Technical Procedure: The [...] for a 45cm 5F Destination. V18 and Dallas a nd QuickCross catheters were used to [...] bifurcation. Access appeared in the distal R NETWORK LIAISON. Closure and sheath removal was performed with [...] (08/10/2017 5:50 AM EST) [facility] gist Method Time Signature Neutrophils % 80.1 % [facility] LABORATORY Neutr Abs (ANC) 9.01 (H) 1.70 - [facility] 6.10 [facility] x10(3)/[facility] LABORATORY Lymphocytes % 8.8 % [facility] LABORATORY Lymphocytes Abs 1.0 0.9 - 3.2 [facility] x10(3)/[facility] LABORATORY Monocytes % 8.3 % [facility] LABORATORY Monocyte Abs 0.9 0.3 - 0.9 [facility] x10(3)/[facility] LABORATORY Eosinophils % 2.0 % [facility] LABORATORY Eosinophils Abs 0.2 0.0 - 0.4 [facility] x10(3)/[facility] LABORATORY Basophils % 0.4 % [facility] LABORATORY Basophils Abs 0.0 0.0 - 0.1 [facility] x10(3)/[facility] LABORATORY Immature Gran % 0.40 [...] Organization Address City/State/[place] [address] (ABNORMAL) Hemogram (08/10/2017 5:50 AM EST) Analysis Performed At Patho logist Time Signature WBC 11.3 (H) 4.0 - 9.5 [facility] x[facility](3)/[facility] LABORATORY RBC 3.15 (L) 4.58 - [facility] 5.54 [facility] x10(6)/[facility] LABORATORY Hemoglobin 8.9 (L) 13.7 - [facility] 16.[facility] gm/dL [facility] LABORATORY Hematocrit 29.0 (L) 40.5 - [facility] 48.5 % [facility] LABORATORY MCV 92.1 82.9 - [facility] 93.1 [facility] LABORATORY MCH 28.3 27.5 - [facility] 32.1 pg [facility] LABORATORY MCHC 30.7 (L) 32.0 - [facility] 35.7 gm/dL [facility] LABORATORY Platelets 231 145 - 357 [facility] x10(3)/[facility] LABORATORY RDWSD 53.9 (H) 36.0 - [facility] 45.0 [facility] LABORATORY RDWCV 16.2 (H) 11.4 - [facility] 13.8 % [facility] LABORATORY MPV 8.7 7.6 - 12.9 [facility] LABORATORY nRBC % Auto 0.0 % [facility] LABORATORY nRBC Abs Auto 0.000 0.000 - [facility] 0.000 [facility] x10(3)/[facility] LABORATORY Specimen Anatomical Collection Method Collection Time Receive d Time (Source) Location / / Volume Laterality Blood specimen 08/10/2017 5:50 AM 018 5:59 (specimen) EST AM EST Resulting Agency Comment Spec In Lab Yonathan Smith MD HEMATOLOGY ORDERABLES Performing Organization Address City/State/[place] [address] (ABNORMAL) Basic Metabolic Panel (non-fasting) (08/10/2017 5:50 AM EST) athologist Signature Glucose Lvl 135 65 - 199 [facility] mg/dL [facility] [...] [facility] LABORATORY Estimated GFR >60 >=60 [facility] LABORATORY Comment: The reported eGFR should be multiplied b y 1.2 for patients. The MDRD is not an appropriate measure o f renal function for patients with body mass extremes or in patients with acute kidney failure. http://Mediamorph/DHnkdep http://Mediamorph/DHMCnkf Specimen Anatomical Collection Method Collection Time Receive d Time (Source) Location / / Volume Laterality Blood specimen 08/10/2017 5:50 AM 018 5:59 (specimen) EST AM EST Resulting Agency Comment Spec In Lab Yonathan Smith MD CHEMISTRY ORDERABLES Performing Organization Address City/[facility]/ZIP [place] [address] (ABNORMAL) Prothrombin Time (08/10/2017 [...] City/[facility]/ZIP [place] [address] (ABNORMAL) POCT Glucose (08/10/2017 4:01 AM EST) athologist Signature POC Glucose 206 (H) 65 - 199 [facility] mg/dL [facility] [...] [facility]/ZIP [place] [address] POCT Glucose (08/10/2017 2:01 [...] Organization Address City/State/Z[place] [address] (ABNORMAL) POCT Glucose (08/09/2017 11:42 PM EST) athologist Signature POC Glucose 283 (H) 65 - 199 [facility] mg/dL [facility] - [...] Organization Address City/State/Z[place] [address] POCT Glucose (08/09/2017 8:55 [...] Organization Address City/State/[place] [address] (ABNORMAL) APTT (08/09/2017 6:42 PM EST) athologist Signature PTT 90 (H) 25 - 35 sec [facility] LABORATORY Comment: The recommended therapeutic range for fu ll dose, unfractionated heparin at [facility] is 80 ? 114 seconds. The use [...] ORDERABLES Performing Organization Address City/[facility]/ZIP [facility] Phon e Number [address] POCT Glucose (08/09/2017 4:41 PM EST) athologist Signature POC Glucose 195 65 - 199 [facility] mg/dL [facility] [...] City/[facility]/ZIP [place] [address] POCT Glucose (08/09/2017 12:29 PM EST) athologist Signature POC Glucose 140 65 - 199 [facility] mg/dL [facility] - [...] Organization Address City/State/Z[place] [address] POCT Glucose (08/09/2017 9:59 AM EST) P athologist Signature POC Glucose 135 65 - 199 [facility] mg/dL [facility] [...] City/[facility]/ZIP [place] [address] Specimen to Pathology (08/09/2017 [...] City/[facility]/ZIP [place] [address] Surgical Pathology Report (08/09/2017 8:40 AM EST) Component Value Ref Test Analysis Performed At Patholo gist Range Method Time Signature Surgical [id number] ? Location: [facility]; [facility]; A [facility] Report The signing pathologist has (i) [...] Henrique Flower Verified: ??08/13/2017 ?Pathologist Performed at: ??-[facility] Dept. of Pathology, [place], [place] CLINICAL INFORMATION Specimen Submitted: A - [...] Organization Address City/State/Z[place] [address] Anaerobic Culture (08/09/2017 8:30 AM EST) [facility] gist Method Time Signature Anaerobic No anaerobic [facility] Culture organisms [facility] LABORATORY Specimen Anatomical Collection Method Collection Time [...] Organization Address City/State/Z[place] [address] (ABNORMAL) Abscess/Wound Aspirate Culture (08/09/2017 8:30 AM EST) Patholo gist Method Time Signature Abscess/Wound Moderate mixed [place] Aspirate bacterial [place] Culture morphotypes [facility] normal LABORATORY cutaneous leroy (A) Gram Stain Rare White Blood Cells [place] Few Gram Positive Cocci in pairs [place] () [facility] LABORATORY Organism Gram Positive [place] Cocci in pairs [place] () [facility] LABORATORY [...] City/[facility]/ZIP Code Phon e Number [address] POCT Glucose (08/09/2017 4:28 AM EST) P athologist Signature POC Glucose 128 65 - 199 [facility] mg/dL [facility] [...] City/[facility]/ZIP [place] [address] ABORH Recheck Status (08/09/2017 [...] City/[facility]/ZIP [place] [address] Antibody screen (08/09/2017 1:10 AM EST) [facility] Method Time Signature Ab Screen Negative [facility] LABORATORY Expires at 08/12/2017 [facility] [id number] on: [facility] LABORATORY Specimen Anatomical Collection Method Collection Time Receive d Time (Source) Location / / Volume Laterality Blood specimen 08/09/2017 1:10 AM 018 1:35 (specimen) EST AM EST Resulting Agency Comment Spec In Lab Yonathan Smith MD BLOOD BANK ORDERABLES Performing Organization Address City/[facility]/Z[place] [address] ABO/Rh Typing (08/09/2017 1:10 [...] City/[facility]/ZIP [place] [address] (ABNORMAL) APTT (08/09/2017 1:10 AM EST) P athologist Signature PTT 86 (H) 25 - 35 sec [facility] LABORATORY Comment: The recommended therapeutic range for fu ll dose, unfractionated heparin at [facility] is 80 ? 114 seconds. The use [...] Organization Address City/State/Z[place] [address] (ABNORMAL) Differential, Automated (08/09/2017 1:10 AM EST) [facility] gist Method Time Signature Neutrophils % 76.2 % [facility] LABORATORY Neutr Abs (ANC) 8.59 (H) 1.70 - [facility] 6.10 [facility] x10(3)/[facility] LABORATORY Lymphocytes % 11.0 % [facility] LABORATORY Lymphocytes Abs 1.2 0.9 - 3.2 [facility] x10(3)/[facility] LABORATORY Monocytes % 8.4 % [facility] LABORATORY Monocyte Abs 1.0 (H) 0.3 - 0.9 [facility] x10(3)/[facility] LABORATORY Eosinophils % 3.5 % [facility] LABORATORY Eosinophils Abs 0.4 0.0 - 0.4 [facility] x10(3)/[facility] LABORATORY Basophils % 0.5 % [facility] LABORATORY Basophils Abs 0.1 0.0 - 0.1 [facility] x10(3)/[facility] LABORATORY Immature Gran % 0.40 [...] Organization Address City/State/Z[place] [address] (ABNORMAL) Hemogram (08/09/2017 1:10 AM EST) Analysis Performed At Patho logist Time Signature WBC 11.3 (H) 4.0 - 9.5 [facility] x[facility](3)/[facility] LABORATORY RBC 3.47 (L) 4.58 - [facility] 5.54 [facility] x10(6)/[facility] LABORATORY Hemoglobin 10.0 (L) 13.7 - [facility] 16.5 gm/dL [facility] LABORATORY Hematocrit 31.9 (L) 40.5 - [facility] 48.5 % [facility] LABORATORY MCV 91.9 82.9 - [facility] 93.1 [facility] LABORATORY MCH 28.8 27.5 - [facility] 32.1 pg [facility] LABORATORY MCHC 31.3 (L) 32.0 - [facility] 35.7 gm/dL [facility] LABORATORY Platelets 234 145 - 357 [facility] x10(3)/[facility] LABORATORY RDWSD 54.0 (H) 36.0 - [facility] [facility]0 [facility] LABORATORY RDWCV 16.2 (H) 11.4 - [facility] 13.8 % [facility] LABORATORY MPV 8.7 7.6 - 12.9 [facility] LABORATORY nRBC % Auto 0.0 % [facility] LABORATORY nRBC Abs Auto 0.000 0.000 - [facility] 0.000 [facility] x10(3)/[facility] LABORATORY Specimen Anatomical Collection Method Collection Time Receive d Time (Source) Location / / Volume Laterality Blood specimen 08/09/2017 1:10 AM 018 1:19 (specimen) EST AM EST Resulting Agency Comment Spec In Lab Yonathan Smith MD HEMATOLOGY ORDERABLES Performing Organization Address City/State/[place] [address] (ABNORMAL) Prothrombin Time (08/09/2017 [...] City/State/ZIP Code Phon e Number [place] [phone] HOSPITAL LABORATORY Drive (ABNORMAL) Basic Metabolic Panel (non-fasting) (08/09/2017 1:10 AM EST) athologist Signature Glucose Lvl 108 65 - 199 [facility] mg/dL [facility] [...] HOSPITAL LABORATORY Estimated GFR 45 (L) >=60 [facility] LABORATORY Comment: The reported eGFR should be multiplied b y 1.2 for patients. The MDRD is not an appropriate measure o f renal function for patients with body mass extremes or in patients with acute kidney failure. http://Mediamorph/DHnkdep http://Mediamorph/DHnkf Specimen Anatomical Collection Method Collection Time Receive d Time (Source) Location / / Volume Laterality Blood specimen 08/09/2017 1:10 AM 018 1:19 (specimen) EST AM EST Resulting Agency Comment Spec In Lab Yonathan Smith MD CHEMISTRY ORDERABLES Performing Organization Address City/[facility]/ZIP Code Phon e Number [address] POCT Glucose (08/09/2017 12:05 AM EST) athologist Signature POC Glucose 128 65 - 199 [facility] mg/dL [facility] [...] City/[facility]/ZIP [place] [address] (ABNORMAL) POCT Glucose (08/08/2017 7:36 PM EST) athologist Signature POC Glucose 215 (H) 65 - 199 [facility]dL [facility] [...] City/[facility]/ZIP [place] [address] (ABNORMAL) POCT Glucose (08/08/2017 6:23 PM EST) athologist Signature POC Glucose 216 (H) 65 - 199 [facility] mg/dL [facility] [...] S Performing Organization Address [facility]/ZIP [place] [address] (ABNORMAL) APTT (08/08/2017 6:00 PM EST) athologist Signature PTT 97 (H) 25 - 35 sec [facility] LABORATORY Comment: The recommended therapeutic range for fu ll dose, unfractionated heparin at [facility] is 80 ? 114 seconds. The use [...] City/[facility]/[place] [address] POCT Glucose (08/08/2017 4:42 PM EST) athologist Signature POC Glucose 78 65 - 199 [facility] mg/dL [facility] [...] Organization Address City/State/[place] [address] (ABNORMAL) POCT Glucose (08/08/2017 4:01 PM EST) P athologist Signature POC Glucose 58 (L) 65 - 199 [facility] mg/dL [facility] [...] Organization Address City/State/ZIP [place] [address] POCT Glucose (08/08/2017 11:51 AM EST) P athologist Signature POC Glucose 90 65 - 199 [facility] mg/dL [facility] [...] Address City/State/ZIP Code Phon e Number [address] (ABNORMAL) APTT (08/08/2017 10:27 AM EST) P athologist Signature PTT 64 (H) 25 - 35 sec [facility] LABORATORY Comment: The recommended therapeutic range for fu ll dose, unfractionated heparin at [facility] is 80 ? 114 seconds. The use [...] City/[facility]/ZIP Code Phon e Number [address] POCT Glucose (08/08/2017 8:02 AM EST) athologist Signature POC Glucose 178 65 - 199 [facility] mg/dL [facility] [...] City/[facility]/ZIP [place] [address] (ABNORMAL) APTT (08/08/2017 4:51 AM EST) athologist Signature PTT >160 25 - 35 [facility] (Critical) sec [facility] LABORATORY Comment: Called by: HOWARD, Read back by: Melba Jaramillo, Date/Time:08/08/17 05:43. The recommended therapeutic range for fu ll dose, unfractionated heparin at [facility] is 80 ? 114 seconds. The use [...] Address City/State/ZIP [place] [address] (ABNORMAL) Differential, Automated (08/08/2017 4:51 AM EST) [facility] Method Time Signature Neutrophils % 77.9 % [facility] LABORATORY Neutr Abs (ANC) 8.17 (H) 1.70 - [facility] 6.10 [facility] x10(3)/[facility] LABORATORY Lymphocytes % 10.3 % [facility] LABORATORY Lymphocytes Abs 1.1 0.9 - 3.2 [facility] x10(3)/[facility] LABORATORY Monocytes % 7.0 % [facility] LABORATORY Monocyte Abs 0.7 0.3 - 0.9 [facility] x10(3)/[facility] LABORATORY Eosinophils % 3.6 % [facility] LABORATORY Eosinophils Abs 0.4 0.0 - 0.4 [facility] x10(3)/[facility] LABORATORY Basophils % 0.5 % [facility] LABORATORY Basophils Abs 0.0 0.0 - 0.1 [facility] x10(3)/[facility] LABORATORY Immature Gran % 0.70 [...] Organization Address City/State/Z[place] [address] (ABNORMAL) Hemogram (08/08/2017 4:51 AM EST) Analysis Performed At Patho logist Time Signature WBC 10.5 (H) 4.0 - 9.5 [facility](3[facility] LABORATORY RBC 3.27 (L) 4.58 - [place] [facility] 5.54 [facility] x10(6)/[facility] LABORATORY Hemoglobin 9.3 (L) 13.7 - [facility] 16.5 gm/dL [facility] LABORATORY Hematocrit 30.3 (L) 40.5 - [facility] 48.5 % [facility] LABORATORY MCV 92.7 82.9 - [facility] 93.1 [facility] LABORATORY MCH 28.4 27.5 - [place] [facility] 32.1 pg [facility] LABORATORY MCHC 30.7 (L) 32.0 - [facility] 35.7 gm/dL [facility] LABORATORY Platelets 252 145 - 357 [facility] x10(3)/[facility] LABORATORY RDWSD 54.6 (H) 36.0 - [facility] 45.0 [facility] LABORATORY RDWCV 16.2 (H) 11.4 - [facility] 13.8 % [facility] LABORATORY MPV 9.1 7.6 - 12.9 [facility] LABORATORY nRBC % Auto 0.0 % [facility] LABORATORY nRBC Abs Auto 0.000 0.000 - [facility] 0.000 [facility] x10(3)/[facility] LABORATORY Specimen Anatomical Collection Method Collection Time Receive d Time (Source) Location / / Volume Laterality Blood specimen 08/08/2017 4:51 AM 018 5:14 (specimen) EST AM EST Resulting Agency Comment Spec In Lab Yonathan Smith MD HEMATOLOGY ORDERABLES Performing Organization Address City/State/ZIP Code Phon e Number [place] [phone] HOSPITAL LABORATORY Drive (ABNORMAL) Prothrombin Time (08/08/2017 [...] Organization Address City/State/Z[place] [address] (ABNORMAL) Basic Metabolic Panel (non-fasting) (08/08/2017 4:51 AM EST) athologist Signature Glucose Lvl 229 (H) 65 - 199 [facility] mg/dL [facility] [...] or in patients with acute kidney failure. http://Mediamorph/DHnkdep http://Mediamorph/DHMCnkf Specimen Anatomical Collection Method Collection Time Receive d Time (Source) Location / / Volume Laterality Blood specimen 08/08/2017 4:51 AM 018 5:14 (specimen) EST AM EST Resulting Agency Comment Spec In Lab Yonathan Smith MD CHEMISTRY ORDERABLES Performing Organization Address City/[facility] Phon e Number [address] POCT Glucose (08/08/2017 4:20 AM EST) athologist Signature POC Glucose 193 65 - 199 [facility] mg/dL [facility] [...] City/[facility]/ZIP Code Phon e Number [address] POCT Glucose (08/07/2017 11:11 PM EST) P athologist Signature POC Glucose 124 65 - 199 [facility] mg/dL [facility] - [...] City/[facility]/Z[place] [address] (ABNORMAL) APTT (08/07/2017 10:18 PM EST) athologist Signature PTT 114 (H) 25 - 35 sec [facility] LABORATORY Comment: The recommended therapeutic range for fu ll dose, unfractionated heparin at [facility] is 80 ? 114 seconds. The use [...] Smith MD HEMATOLOGY ORDERABLES Performing Organization Address [facility]/ZIP [place] [address] POCT Glucose (08/07/2017 8:10 PM EST) athologist Signature POC Glucose 140 65 - 199 [facility] mg/dL [facility] [...] City/[facility]/ZIP Code Phon e Number [address] POCT Glucose (08/07/2017 5:27 PM EST) athologist Signature POC Glucose 187 65 - 199 [facility] mg/dL [facility] - [...] City/[facility]/ZIP Code Phon e Number [address] POCT Glucose (08/07/2017 3:29 PM EST) athologist Signature POC Glucose 86 65 - 199 [facility] mg/dL [facility] [...] S Performing Organization Address [facility] [place] [address] (ABNORMAL) APTT (08/07/2017 2:50 PM EST) athologist Signature PTT 60 (H) 25 - 35 sec [facility] LABORATORY Comment: The recommended therapeutic range for fu ll dose, unfractionated heparin at [facility] is 80 ? 114 seconds. The use [...] ORDERABLES Performing Organization Address City/[facility]/ZIP [facility] [place] [address] (ABNORMAL) POCT Glucose (08/07/2017 2:23 PM EST) athologist Signature POC Glucose 55 (L) 65 - 199 [facility]/dL [facility] [...] Address City/State/ZIP Code Phon e Number [address] POCT Glucose (08/07/2017 12:08 PM EST) P athologist Signature POC Glucose 77 65 - 199 [facility] mg/dL [facility] [...] Organization Address City/State/ZIP [place] [address] (ABNORMAL) Differential, Automated (08/07/2017 7:30 AM EST) Patholo gist Method Time Signature Neutrophils % 73.8 % [facility] LABORATORY Neutr Abs (ANC) 7.17 (H) 1.70 - [facility] 6.10 [facility] x10(3)/[facility] LABORATORY Lymphocytes % 12.2 % [facility] LABORATORY Lymphocytes Abs 1.2 0.9 - 3.2 [facility] x10(3)/[facility] LABORATORY Monocytes % 9.0 % [facility] LABORATORY Monocyte Abs 0.9 0.3 - 0.9 [facility] x10(3)/[facility] LABORATORY Eosinophils % 3.9 % [facility] LABORATORY Eosinophils Abs 0.4 0.0 - 0.4 [facility] x10(3)/[facility] LABORATORY Basophils % 0.6 % [facility] LABORATORY Basophils Abs 0.1 0.0 - 0.1 [facility] x10(3)/[facility] LABORATORY Immature Gran % 0.50 [...] Organization Address City/State/Z[place] [address] (ABNORMAL) Hemogram (08/07/2017 7:30 AM EST) Analysis Performed At Patho logist Time Signature WBC 9.7 (H) 4.0 - 9.5 [facility] x10(3)/[facility] LABORATORY RBC 3.54 (L) 4.58 - [facility] 5.54 [facility] x10(6)/[facility] LABORATORY Hemoglobin 9.9 (L) 13.7 - [facility] 16.[facility] gm/dL [facility] LABORATORY Hematocrit 32.3 (L) 40.5 - [facility] 48.5 % [facility] LABORATORY MCV 91.2 82.9 - [facility] 93.1 [facility] LABORATORY MCH 28.0 27.5 - [facility] 32.1 pg [facility] LABORATORY MCHC 30.7 (L) 32.0 - [facility] 35.7 gm/dL [facility] LABORATORY Platelets 312 145 - 357 [facility] x10(3)/[facility] LABORATORY RDWSD 53.2 (H) 36.0 - [facility] 45.0 [facility] RDWCV 16.0 (H) 11.4 - [facility] 13.8 % [facility] LABORATORY MPV 8.9 7.6 - 12.9 [facility] LABORATORY nRBC % Auto 0.0 % [facility] LABORATORY nRBC Abs Auto 0.000 0.000 - [facility] 0.000 [facility] x10(3)/[facility] LABORATORY Specimen Anatomical Collection Method Collection Time Receive d Time (Source) Location / / Volume Laterality Blood specimen 08/07/2017 7:30 AM 018 7:45 (specimen) EST AM EST Resulting Agency Comment Spec In Lab Yonathan Smith MD HEMATOLOGY ORDERABLES Performing Organization Address City/State/ZIP [place] [address] (ABNORMAL) Basic Metabolic Panel (non-fasting) (08/07/2017 7:30 AM EST) P athologist Signature Glucose Lvl 80 65 - 199 [facility] mg/dL [facility] [...] HOSPITAL LABORATORY Estimated GFR 59 (L) >=60 [facility] LABORATORY Comment: The reported eGFR should be multiplied b y 1.2 for patients. The MDRD is not an appropriate measure o f renal function for patients with body mass extremes or in patients with acute kidney failure. http://tinyurl.Mesuro/DHnkdep http://SpotRight.com/DHMCnkf Specimen Anatomical Collection Method Collection Time Receive d Time (Source) Location / / Volume Laterality Blood specimen 08/07/2017 7:30 AM 018 7:45 (specimen) EST AM EST Resulting Agency Comment Spec In Lab Yonathan Smith MD CHEMISTRY ORDERABLES Performing Organization Address City/[facility]/ZIP Code Phon e Number [address] POCT Glucose (08/07/2017 7:27 AM EST) athologist Signature POC Glucose 81 65 - 199 [facility] mg/dL [facility] [...] City/[facility]/ZIP Code Phon e Number [address] APTT (08/07/2017 7:04 AM EST) athologist Signature PTT 34 25 - 35 sec [facility] LABORATORY Comment: The recommended therapeutic range for fu ll dose, unfractionated heparin at [facility] is 80 ? 114 seconds. The use [...] City/[facility]/ZIP Code Phon e Number [address] (ABNORMAL) Prothrombin Time (08/07/2017 [...] Address City/State/ZIP Code Phon e Number [address] POCT Glucose (08/07/2017 4:03 AM EST) athologist Signature POC Glucose 93 65 - 199 [facility] mg/dL [facility] [...] Address City/State/ZIP Code Phon e Number [address] POCT Glucose (08/07/2017 12:04 AM EST) athologist Signature POC Glucose 107 65 - 199 [facility] mg/dL [facility] [...] Address City/State/ZIP Code Phon e Number [address] POCT Glucose (08/06/2017 7:56 PM EST) P athologist Signature POC Glucose 178 65 - 199 [facility] mg/dL [facility] - [...] Address City/State/ZIP Code Phon e Number [address] [id number] (08/06/2017 2:32 PM EST) Component Value Ref Test Analysis Performed At Patholo gist Range Method Time Signature VB Text Department: Vascular Surgery Lab VASCUBASE Report Patient: [id number] (GREGORY HOANG) CPT: [id number] ICD10: I99.8 Referring Physician: YONATHAN SMITH ?? [...] Provider: Chiquis Mcgrath RN)2011 (Given - Provider: Henriuqe Marks RN) 08 (Given - Provider: Chiquis [...]
Routine documented in this encounter Care Teams Table Setter Relationship Specialty Start Date End Date Lovely Vicente MD PCP - General 04/16/[address] [place] [address] documented as of this encounter
--- OUTSIDE RECORDS SUMMARY | 2022-04-22 08:21 | XMS_ITS | Encounter Summary ---
:1945 [place] [address] Care Team Providers Name Role Phone Lovely Vicente MD Primary Care Provider Encounter Details Date Type Department Care Team Description 08/03/2017 Hospital Encounter Radiology Library at [place], Tommy Mijares [facility] [place] [address] VASCULAR SURGERY [phone] [place], [place] [address] (Wo rk) Social History Tobacco [...] MD [facility] [address] [place], [place] [address] (Wo rk) 05/28/2022 Laboratory Appointment Lab 05/28/2022 Office Visit Cardiology Zulma Dolan MD [facility] [place] [address] Liz Poole PA [facility] [place] [address] 06/10/2022 Office Visit Dermatology Laura Scherer MD [facility] [address] TEJA GR-DERMAT OLOGY [place], [place] [address] (Wo rk) documented as of [...] Time Received Time / Laterality Volume Narrative [facility] - 08/03/2017 6:03 PM EST This exam is for storage only and is aut o-finalizing. Arik Clement MD G FILM LIBRARY ORDERABLES Performing Organization Address City/State/ZIP Code Phon e Number [place], [place] documented in this encounter Visit Diagnoses Diagnosis Pain Generalized pain documented in this encounter Care Teams Colloid Mill Operator Relationship Specialty Start Date End Date Lovely Vicente MD PCP - General 04/16/[address] [place] [address] documented as of this encounter
--- OUTSIDE RECORDS SUMMARY | 2022-04-22 08:21 | XMS_ITS | Encounter Summary ---
:1945 Author Organization [facility] Address [facility] [place] [address] Care Team Providers Name Role Phone Lovely Vicente MD Primary Care Provider Reason for Visit Auth/Cert Specialty Diagnoses / Procedures Referred By Contact Refer red To Contact Diagnoses Critical lower limb ischemia CELLULITIS RT FOOT Procedures EMERGENCY Referral ID Status Reason Start Date Expiration Date Visits Requ ested Visits Authorized [id number] 1 1 Encounter Details Date Type Department Care Team Description 08/04/2017 Laboratory Lab 3L Barbara Cardiomyopathy, unspecified type; Appointment [facility] Systolic congestive heart failure, unspecified congestive heart failure chronicity; Hospital Coronary artery rupture; [facility] Ischemic cardiomyopathy; Drive Atherosclerosis of [place] co ronary artery, angina presence unspecified, unspecified whether [place] or transplanted heart; [place], [place] Essential hyper tension, malignant; [phone] 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, unspecified exterminator insulin use status [phone] Social History Tobacco Use Types Packs/Day Years [...] MD [facility] [address] [place] [address] (Wo rk) 05/28/2022 Laboratory Appointment Lab 05/28/2022 Office Visit Cardiology Zulma Dolan MD [facility] [place] [address] Liz Poole PA [facility] [place] [address] 06/10/2022 Office Visit Dermatology Laura Scherer MD [facility] ER [address] [place], [place] [address] (Wo rk) documented as of [...] Signature Uric Acid 7.1 3.5 - 8.5 [facility] mg/dL [facility] Specimen Anatomical Collection Method Collection Time Receive d Time (Source) Location / / Volume Laterality Blood specimen 08/04/2017 12:55 8 1:01 (specimen) PM EST PM EST Resulting Agency Comment Spec In Lab Lovely Vicente MD CHEMISTRY ORDERABLES Performing Organization Address City/[facility]/[place] [address] (ABNORMAL) Hemogram (08/04/2017 12:55 PM EST) Analysis Performed At Patho logist Time Signature WBC 15.8 (H) 4.0 - 9.5 [facility] x10(3[facility] LABORATORY RBC 3.48 (L) 4.58 - [facility] RYAN 5.54 [facility] x10(6)/[facility] LABORATORY Hemoglobin 9.9 (L) 13.7 - [facility] 16.5 gm/dL [facility] Hematocrit 31.4 (L) 40.5 - [facility] 48.5 % [facility] MCV 90.2 82.9 - [facility] 93.1 [facility] LABORATORY MCH 28.4 27.5 - [facility] 32.1 pg [facility] MCHC 31.5 (L) 32.0 - [facility] 35.7 gm/dL [facility] Platelets 310 145 - 357 [facility] x10(3)/[facility] LABORATORY RDWSD 51.8 (H) 36.0 - [facility] 45.0 [facility] LABORATORY RDWCV 15.8 (H) 11.4 - [facility] 13.8 % [facility] MPV 8.9 7.6 - 12.9 [facility] LABORATORY nRBC % Auto 0.0 % [facility] nRBC Abs Auto 0.000 0.000 - [facility] 0.000 [facility] x10(3)/[facility] LABORATORY Specimen Anatomical Collection Method Collection Time Receive d Time (Source) Location / / Volume Laterality Blood specimen 08/04/2017 12:55 8 1:01 (specimen) PM EST PM EST Resulting Agency Comment Spec In Lab Lovely Vicente MD HEMATOLOGY ORDERABLES Performing Organization Address City/State/[place] [address] (ABNORMAL) Comprehensive metabolic panel (non-fasting) (08/04/2017 12:55 PM EST) athologist Signature Glucose Lvl 208 (H) 65 - 199 [facility] mg/dL [facility] Comment: Diabetes: >=200 mg/dL plus symp toms BUN 32 (H) 10 - 20 mg/dL [facility] Creatinine 1.58 (H) 0.80 [...] LABORATORY AST 20 0 - 39 unit/L [facility] ALT 21 0 - 55 unit/L [facility] Alk Phos 93 40 - 120 unit/L [facility] Total Bilirubin 0.4 0.2 - 1.3 mg/dL [facility] Estimated GFR 43 (L) >=60 [facility] Comment: The reported eGFR should be multiplied b y 1.2 for patients. The MDRD is not an appropriate measure o f renal function for patients with body mass extremes or in patients with acute kidney failure. http://Bellabeat/DHnkdep http://Bellabeat/DHMCnkf Specimen Anatomical Collection Method Collection Time Receive d Time (Source) Location / / Volume Laterality Blood specimen 08/04/2017 12:55 8 1:01 (specimen) PM EST PM EST Resulting Agency Comment Spec In Lab Lovely Vicente MD CHEMISTRY ORDERABLES Performing Organization Address City/State/ZIP Code Phon e Number [place] [id number] [address] LAB[address]ORY [address] (ABNORMAL) Hemoglobin A1c (08/04/2017 [...] with hemoglobinopathies. Additional resources are available on [facility] website. Macario HAMMOND, Ruthann J, Deysi R, et al. ??Tr anslating the A1C assay into estimated average glucose values. ??Diabetes Care 2008:31(8):8340-3401. Specimen Anatomical Collection Method Collection Time Receive d Time (Source) Location / / Volume Laterality Blood specimen 08/04/2017 12:55 8 1:01 (specimen) PM EST PM EST Resulting Agency Comment Spec In Lab Lovely Vicente MD CHEMISTRY ORDERABLES Performing Organization Address [facility] [address] (ABNORMAL) Prothrombin Time (08/04/2017 [...] Vicente MD HEMATOLOGY ORDERABLES Performing Organization Address [facility]/[place] [address] (ABNORMAL) pro-Brain Natriuretic Peptide (08/04/2017 12:55 PM EST) P athologist Signature ProBNP 3,133 (H) <=125 [facility] pg/mL [facility] Specimen Anatomical Collection Method Collection Time Receive d Time (Source) Location / / Volume Laterality Blood specimen 08/04/2017 12:55 8 1:01 (specimen) PM EST PM EST Resulting Agency Comment Spec In Lab Danette Maxwell APRN CHEMISTRY ORDERABLES Performing Organization Address City/State/[place] [address] documented in this encounter [...] underlying cond ition with diabetic nephropathy, unspecified exterminator insulin use status documented in this encounter Care Teams Construction Rep Relationship Specialty Start Date End Date Lovely Vicente MD PCP - General 04/16/[address] [place] [address] documented as of this encounter
--- OUTSIDE RECORDS SUMMARY | 2022-04-22 08:21 | XMS_ITS | Encounter Summary ---
:1945 [place] [address] Care Team Providers Name Role Phone Lovely Vicente MD Primary Care Provider Encounter Details Date Type Department Care Team Description 08/04/2017 Notes Only Pain Management at Barbra Bruno, STACIE [facility] [place] [address] [place] [address] [phone] (Wo rk) Social History Tobacco Use Types [...] bid) at this time. Barbra Soares, MSN, FINISHER WALLBOARD AND PLASTERBOARD-BC, [facility] Pain [facility] Clinic documented in this encounter Plan of Treatment Upcoming Encounters Date Type Specialty Care Team Description 05/28/2022 Appointment Cardiology Zulma Dolan MD [facility] [address] [place], [place] [address] (Wo rk) 05/28/2022 Laboratory Appointment Lab 05/28/2022 Office Visit Cardiology Zulma Dolan MD [facility] [place] [address] Liz Poole PA [facility] [place] [address] 06/10/2022 Office Visit Dermatology Laura Scherer MD [facility] [address] [place], [place] [address] (Wo rk) documented as of this encounter Visit Diagnoses Not on filedocumented in this encounter Care Teams Health And Safety Director Relationship Specialty Start Date End Date Lovely Vicente MD PCP - General 04/16/[address] [place] [address] documented as of this encounter
--- OUTSIDE RECORDS SUMMARY | 2022-04-22 08:21 | XMS_ITS | Encounter Summary ---
:1945 Author Organization [facility] [place] [address] Care Team Providers Name Role Phone Lovely Vicente MD Primary Care Provider Reason for Visit Auth/Cert Specialty Diagnoses / Procedures Referred By Contact Refer red To Contact Diagnoses Critical lower limb ischemia CELLULITIS RT FOOT Procedures EMERGENCY Referral ID Status Reason Start Date Expiration Date Visits Requ ested Visits Authorized [id number] 1 1 Encounter Details Date Type Department Care Team Description 08/04/2017 [facility] Barbara [place] thrombosis of [facility] [place] [phone] Social History Tobacco Use Types Packs/Day Years [...] Zulma Dolan MD [facility] [place], [place] [address] (Wo rk) 05/28/2022 Laboratory Appointment Lab 05/28/2022 Office Visit Cardiology Zulma Dolan MD [facility] [place] [address] Liz Poole PA [facility] [place] [address] 06/10/2022 Office Visit Dermatology Laura Scherer MD [facility] DR [address]DERMAT [place]LOGY [place] [...] Department: Vascular Surgery Lab VASCUBASE Report Patient: [id number] (DON HOANG) CPT: 26939 ICD10: I82.541 Referring Physician: MEÑO HUTSON ?? [...] extremity documented in this encounter Care Teams Steel Box Toe Inserter Relationship Specialty Start Date End Date Lovely Vicente MD PCP - General 04/16/[address] [place] [address] documented as of this encounter
--- OUTSIDE RECORDS SUMMARY | 2022-04-22 08:21 | XMS_ITS | Encounter Summary ---
:1945 Author Organization [facility] [place] [address] Care Team Providers Name Role Phone Lovely Vicente MD Primary Care Provider Reason for Visit Auth/Cert Specialty Diagnoses / Procedures Referred By Contact Refer red To Contact Diagnoses Critical lower limb ischemia CELLULITIS RT FOOT Procedures EMERGENCY Referral ID Status Reason Start Date Expiration Date Visits Requ ested Visits Authorized [id number] 1 1 Encounter Details Date Type Department Care Team Description 08/04/2017 Hospital Encounter [facility]Ray at [facility] Danette Maxwell Incisional pain [address] [place] [address] Dr Gomes, SHORTS SIFTER [facility] [address] CARDIOLOGY [place], [place] [address] Social History Tobacco Use Types [...] Cardiology Zulma Dolan MD [facility] [place], [place] [address] (Wo rk) 05/28/2022 Laboratory Appointment Lab 05/28/2022 Office Visit Cardiology Zulma Dolan [place] [facility] [place] [address] Liz Poole PA [facility] [place] [address] 06/10/2022 Office Visit Dermatology Laura Scherer MD [facility] DR [address] [place], [place] [address] (Wo rk) documented as of [...] original. EXAMINATION: XR CHEST PA AND LATERAL (EnOcean) CLINICAL HISTORY: Checking sternal stabi lity/assess wires [...] Daniele gutiérrez 08/04/2017 4:13 PM Danette Maxwell SHORTS SIFTER IMG DX ORDERABLES documented in this encounter Visit Diagnoses Diagnosis Incisional pain Disturbance of skin sensation documented in this encounter Care Teams Bi Analyst Relationship Specialty Start Date End Date Lovely Vicente MD PCP - General 04/16/[address] [place] [address] documented as of this encounter
--- OUTSIDE RECORDS SUMMARY | 2022-04-22 08:21 | XMS_ITS | Encounter Summary ---
:1945 [place] [address] Care Team Providers Name Role Phone Lovely Vicente MD Primary Care Provider Encounter Details Date Type Department Care Team Description 08/04/2017 Notes Only Cardiac Surgery Makayla Wilson APRN [facility] [place] [address] CARDIAC SURGERY [phone] [place], [place] [address] (Wo rk) Social History Tobacco [...] MD [facility] [place], [place] [address] (Wo rk) 05/28/2022 Laboratory Appointment Lab 05/28/2022 Office Visit Cardiology Zumla Dolan MD [facility] [place] [address] Liz Poole PA [facility] [place] [address] 06/10/2022 Office Visit Dermatology Laura Scherer MD [facility] DR [address]MAT [place], [place] [address] (Wo rk) documented as of this encounter Visit Diagnoses Not on filedocumented in this encounter Care Teams Painter Helper Spray Relationship Specialty Start Date End Date Lovely Vicente MD PCP - General 04/16/[address] [place] [address] documented as of this encounter
--- OUTSIDE RECORDS SUMMARY | 2022-04-22 08:21 | XMS_ITS | Encounter Summary ---
:1945 Author Organization [facility] [place] [address] Care Team Providers Name Role Phone Lovely Vicente MD Primary Care Provider Reason for Visit Auth/Cert Specialty Diagnoses / Procedures Referred By Contact Refer red To Contact Diagnoses Critical lower limb ischemia CELLULITIS RT FOOT Procedures EMERGENCY Referral ID Status Reason Start Date Expiration Date Visits Requ ested Visits Authorized [id number] 1 1 Encounter Details Date Type Department Care Team Description 08/04/2017 Office Visit Cardiology at [facility] Danette Maxwell Incisional pain; [facility] A, FINISH MACHINE TENDER Ischemic cardiomyopathy; [facility] ASCVD (arteriosclerotic card iovascular disease); [place], [place] Systolic heart failure, unspecified hear t failure chronicity [phone] CARDIOLOGY [phone] [place], [place] [address] Social History Tobacco Use Types [...] in this encounter Progress Notes Danette Maxwell, FINISH MACHINE TENDER - 08/04/2017 3:00 PM EST ID and [...] 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 [...] Zulma Dolan MD [facility] [place], [place] [address] (Wo rk) 05/28/2022 Laboratory Appointment Lab 05/28/2022 Office Visit Cardiology Zulma Dolan MD [facility] [place] [address] Liz Poole PA [facility] [place] [address] 06/10/2022 Office Visit Dermatology Laura Scherer MD [facility] DR [address]MAT [place], [place] [address] (Wo rk) documented as [...] sensation documented in this encounter Care Teams Schedule Planning Manager Relationship Specialty Start Date End Date Lovely Vicente MD PCP - General 04/16/[address] [place] [address] documented as of this encounter
--- OUTSIDE RECORDS SUMMARY | 2022-04-22 08:21 | XMS_ITS | Encounter Summary ---
:1945 Author Organization [facility] [place] [address] Care Team Providers Name Role Phone Lovely Vicente MD Primary Care Provider Encounter Details Date Type Department Care Team Description 08/04/2017 Orders Only Cardiac Surgery Makayla Wilson APRN [facility] [address] CARDIAC SURGERY [phone] [place], [place] [address] (Wo rk) Social History Tobacco [...] [facility] er [place], [place] [address] (Wo rk) 05/28/2022 Laboratory Appointment Lab 05/28/2022 Office Visit Cardiology Zulma Dolan MD [facility] [place] [address] Liz Poole PA [facility] [place] [address] 06/10/2022 Office Visit Dermatology Laura Scherer MD [facility] ER DR [address] GR[address]DERMAT [place], [place] [address] (Wo rk) documented as of this encounter Visit Diagnoses Not on filedocumented in this encounter Care Teams Cad Detailer Relationship Specialty Start Date End Date Lovely Vicente MD PCP - General 04/16/[address] [place] [address] documented as of this encounter
--- OUTSIDE RECORDS SUMMARY | 2022-04-22 08:21 | XMS_ITS | Encounter Summary ---
:1945 [place] [address] Care Team Providers Name Role Phone Lovely Vicente MD Primary Care Provider Reason for Visit Auth/Cert Specialty Diagnoses / Procedures Referred By Contact Refer red To Contact Diagnoses Critical lower limb ischemia CELLULITIS RT FOOT Procedures EMERGENCY Referral ID Status Reason Start Date Expiration Date Visits Requ ested Visits Authorized [id number] 1 1 Encounter Details Date Type Department Care Team Description 08/09/2017 Anesthesia Event Main Operating Room Daniele Lizama MD [facility] [place] [address] [facility] Rob Jones MD [facility] [place] [address] [place] [address] Anesthesia Record Procedure Summary Procedure Name [...] Knowles, Dory arm), right; VAMSI Rios, RN ajhl-ham-fdndab catheter system; 20 gauge; 08/16/17; 1047 PIV 07/29/17; 1413; median 07/29/17 1413 by 08/16/17 1047 by cubital vein (antecubital Magdalene Hickey Williams, Dory fossa), left; VAMSI Wyatt, RN bhaf-hfm-ieweii catheter system; 20 gauge; 08/16/17; 1047 PIV 08/06/17; 1742; cephalic 08/06/17 1742 by 0920 by vein (lateral side of Taylor Laureano Danah y, Caitlyn C, arm), right; VAMSI BONNER otyz-tmb-sbecuy catheter system; 22 gauge, 1 in length; Eliseo LAUREANO RN VAS; distraction, intradermal injection, tolerated well, appears comfortable; 0; 08/16/17; 0920 Wound 08/07/17; 1335; knee; 08/07/17 1335 by 08/16/17 1047 by laceration; wound occured Barbara Albert iams, Dory AUTOMOBILE BUMPER STRAIGHTENER; 08/16/17; 1047 VAMSI Alonzo, RN PIV 08/07/17; 1734; cephalic 08/07/17 1734 by 1047 by vein (lateral side of Kendrick, Carlos W, Willia ms, Dory arm), left; MARCIE Wyatt RN pcww-obz-oyxldw catheter system; 22 gauge; distraction, intradermal injection, [...] Santillan MD - 08/09/2017 9:01 AM EST [facility] Department of Anesthesiology Post-procedure Note Patient: Don Fatima Procedure Summary Date Anesthesia Start Anesthesia Stop Room / Location 08/09/17 0802 0901 [facility] OR 14 / [facility] MAIN OR Procedure Diagnosis Surgeon Responsible Provider AMPUTATION, 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 Nerve [...] [facility] MAIN OR Social History Substance [...] adequate IV access. Brody Santillan MD PGY-2, Final Assembler Pager #[phone] Anesthesiology Staff (Dewhirst): Pre-op summary note as [...] Dolan MD [facility] Dr [place], [place] [address] (Wo rk) 05/28/2022 Laboratory Appointment Lab 05/28/2022 Office Visit Cardiology Zulma Dolan MD [facility] [place] [address] Liz Poole PA [facility] [place] [address] 06/10/2022 Office Visit Dermatology Laura Scherer MD [facility] DR [address] [place], [place] [address] (Wo rk) documented as of [...] Length: 10 cm Gauge: 21 Needle Type: Z-tvvvm-jyfzf Medication injection made in crementally with aspirations. [...] Procedure) documented in this encounter Care Teams Thoracic Surgeon Relationship Specialty Start Date End Date Lovely Vicente MD PCP - General 04/16/15 [facility] [address] [place] [address] documented as of this encounter
--- OUTSIDE RECORDS SUMMARY | 2022-04-22 08:21 | XMS_ITS | Encounter Summary ---
:1945 Author Organization [facility] [place] [address] Care Team Providers Name Role Phone Lovely Vicente MD Primary Care Provider Reason for Visit Reason Comments Foot Ulcer WOUND CHECK Auth/Cert Specialty Diagnoses / Procedures Referred By Contact Refer red To Contact Diagnoses Critical lower limb ischemia CELLULITIS RT FOOT Procedures EMERGENCY Referral ID Status Reason Start Date Expiration Date Visits Requ ested Visits Authorized [id number] 1 1 Encounter Details Date Type Department Care Team Description 08/06/2017 [facility] lower limb [facility] ischemia [facility] [place] VASCULAR SURGERY [address] [place] [address] [phone] Social History Tobacco Use Types Packs/Day Years [...] Smith MD - 08/06/2017 1:00 PM EST [facility] staff: 1. RIGHT leg CLI [...] Dolan MD [facility] [address] [place], [place] [address] (Wo ) 05/28/2022 Laboratory Appointment Lab 05/28/2022 Office Visit Cardiology Zulma Dolan MD [facility] [place] [address] Liz Poole PA [facility] [place] [address] 06/10/2022 Office Visit Dermatology Laura Scherer MD [facility] ER [address] [place], [place] [address] (Wo rk) documented as of this encounter Visit Diagnoses Diagnosis Critical lower limb ischemia Unspecified circulatory system disorder documented in this encounter Care Teams Pipe Stripper Relationship Specialty Start Date End Date Lovely Vicente MD PCP - General 04/16/[address] [place], [place] [address] documented as of this encounter
--- OUTSIDE RECORDS SUMMARY | 2022-04-22 08:21 | XMS_ITS | Encounter Summary ---
:1945 [place] [address] Care Team Providers Name Role Phone Lovely Vicente MD Primary Care Provider Encounter Details Date Type Department Care Team Description 08/05/2017 Notes Only Vascular Surgery at [facility] [place], STACIE [facility] [place] [address] VASCULAR SURGERY [phone] [place], [place] [address] (Wo rk) Social History Tobacco [...] Zulma Dolan MD [facility] [place], [place] [address] (Wo rk) 05/28/2022 Laboratory Appointment Lab 05/28/2022 Office Visit Cardiology Zulma Dolan MD [facility] [place] [address] Liz Poole PA [facility] [place] [address] 06/10/2022 Office Visit Dermatology Laura Scherer MD [facility] DR [address] [place], [place] [address] (Wo rk) documented as of this encounter Visit Diagnoses Not on filedocumented in this encounter Care Teams Powertrain Design Engineer Relationship Specialty Start Date End Date Lovely Vicente MD PCP - General 04/16/15 [facility] [address] [place] [address] documented as of this encounter
--- OUTSIDE RECORDS SUMMARY | 2022-04-22 08:21 | XMS_ITS | Encounter Summary ---
:1945 Author Organization [facility] [place] [address] Care Team Providers Name Role Phone Lovely Vicente MD Primary Care Provider Reason for Visit Auth/Cert Specialty Diagnoses / Procedures Referred By Contact Refer red To Contact Diagnoses Critical lower limb ischemia CELLULITIS RT FOOT Procedures EMERGENCY Referral ID Status Reason Start Date Expiration Date Visits Requ ested Visits Authorized [id number] 1 1 Encounter Details Date Type Department Care Team Description 08/04/2017 Laboratory Appointment Lab 3L [facility] [place] [address] Social History Tobacco Use Types Packs/Day [...] [facility] [place] [address] [place] [address] (Wo rk) 05/28/2022 Laboratory Appointment Lab 05/28/2022 Office Visit Cardiology Zulma Dolan MD [facility] [place] [address] Liz Poole PA [facility] [place] [address] 06/10/2022 Office Visit Dermatology Laura Scherer MD [facility] DR TE[address] GR[address]DERMAT [place], [place] [address] (Wo rk) documented as of this encounter Visit Diagnoses Not on filedocumented in this encounter Care Teams Correspondence Analyst Relationship Specialty Start Date End Date Lovely Vicente MD PCP - General 04/16/15 [facility] [address] [place], [place] [address] documented as of this encounter
--- OUTSIDE RECORDS SUMMARY | 2022-04-22 08:21 | XMS_ITS | Encounter Summary ---
:1945 Author Organization [place] [address] Care Team Providers Name Role Phone Lovely Vicente MD Primary Care Provider Reason for Visit Auth/Cert Specialty Diagnoses / Procedures Referred By Contact Refer red To Contact Diagnoses Critical lower limb ischemia CELLULITIS RT FOOT Procedures EMERGENCY Referral ID Status Reason Start Date Expiration Date Visits Requ ested Visits Authorized [id number] 1 1 Encounter Details Date Type Department Care Team Description 08/06/2017 Hospital En[facility] [place] [address] Social History Tobacco Use Types Packs/Day [...] Dolan MD [facility] Dr [place], [place] [address] (Wo rk) 05/28/2022 Laboratory Appointment Lab 05/28/2022 Office Visit Cardiology Zulma Dolan MD [facility] [place] [address] Liz Poole PA [facility] [place] [address] 06/10/2022 Office Visit Dermatology Laura Scherer MD [facility] DR [address]DERMAT [place], [place] [address] (Wo rk) documented as of this encounter Visit Diagnoses Not on filedocumented in this encounter Care Teams Local Announcer Relationship Specialty Start Date End Date Lovely Vicente MD PCP - General 04/16/[address] [place] [address] documented as of this encounter
--- OUTSIDE RECORDS SUMMARY | 2022-04-22 08:21 | XMS_ITS | Encounter Summary ---
:1945 Author Organization [facility] [place] [address] Care Team Providers Name Role Phone Lovely Vicente MD Primary Care Provider Reason for Visit Reason Comments Deep Vein Thrombosis Auth/Cert Specialty Diagnoses / Procedures Referred By Contact Refer red To Contact Diagnoses Critical lower limb ischemia CELLULITIS RT FOOT Procedures EMERGENCY Referral ID Status Reason Start Date Expiration Date Visits Requ ested Visits Authorized [id number] 1 1 Encounter Details Date Type Department Care Team Description 08/04/2017 Office Visit Vascular Surgery at [facility] itical lower limb [facility] [address] [place] VASCULAR SURGERY [id number] [place] [address] [phone] Social History Tobacco Use Types Packs/Day Years [...] MD [facility] [place] [address] Liz Poole PA [facility] [place] [address] 06/10/2022 Office Visit Dermatology Laura Scherer MD [facility] ER DR TEJA GR[address]DERMAT [place], [place] [address] (Wo rk) documented as of this encounter Visit Diagnoses Diagnosis Critical lower limb ischemia Unspecified circulatory system disorder documented in this encounter Care Teams Rfid Systems Architect Relationship Specialty Start Date End Date Lovely Vicente MD PCP - General 04/16/15 [facility] [address] [place], [place] [address] documented as of this encounter
--- OUTSIDE RECORDS SUMMARY | 2022-04-22 08:21 | XMS_ITS | Encounter Summary ---
:1945 Author Organization [facility] [place] [address] Care Team Providers Name Role Phone Lovely Vicente MD Primary Care Provider Reason for Visit Auth/Cert Specialty Diagnoses / Procedures Referred By Contact Refer red To Contact Diagnoses Critical lower limb ischemia CELLULITIS RT FOOT Procedures EMERGENCY Referral ID Status Reason Start Date Expiration Date Visits Requ ested Visits Authorized [id number] 1 1 Encounter Details Date Type Department Care Team Description 08/06/2017 Clinical Support Same Day at [facility] [place] [place] Ischemia of foot [facility] [place] [address] Social History Tobacco Use Types Packs/Day [...] MD [facility] Dr [place], [place] [address] (Wo rk) 05/28/2022 Laboratory Appointment Lab 05/28/2022 Office Visit Cardiology Zulma Dolan MD [facility] [place] [address] Liz Poole PA [facility] [place] [address] 06/10/2022 Office Visit Dermatology Laura Scherer MD [facility] [address]DERMAT [place], [place] [address] (Wo rk) documented as [...] 444 ms MUSE SYSTEM (Bezet) Calculated P [place] 44 degrees MUSE SYSTEM Calculated R [place] -31 degrees MUSE SYSTEM Calculated T [place] 106 degrees MUSE SYSTEM INTERPRETATION Normal sinus [...] disorder documented in this encounter Care Teams Environmental Engineering Assistant Relationship Specialty Start Date End Date Lovely Vicente MD PCP - General 04/16/[address] [place] [address] documented as of this encounter
--- OUTSIDE RECORDS SUMMARY | 2022-04-22 08:21 | XMS_ITS | Encounter Summary ---
:1945 Author Organization [facility] [place] [address] Care Team Providers Name Role Phone Lovely Vicente MD Primary Care Provider Encounter Details Date Type Department Care Team Description 08/06/2017 Orders Only Vascular Surgery at [facility] [place] Eden Moss APRN Ischemia of foot [facility] [place] [address] VASCULAR SURGERY [phone] [place], [place] [address] (Wo rk) Social History Tobacco [...] Dolan MD [facility] er [place], [place] [address] (Wo rk) 05/28/2022 Laboratory Appointment Lab 05/28/2022 Office Visit Cardiology Zulma Dolan MD [facility] [place] [address] Liz Poole PA [facility] [place] [address] 06/10/2022 Office Visit Dermatology Laura Scherer MD [facility] ER DR TE[address]DERMAT [place], [place] [address] (Wo rk) documented [...] 444 ms MUSE SYSTEM (Bezet) Calculated P [place] 44 degrees MUSE SYSTEM Calculated R [place] -31 degrees MUSE SYSTEM Calculated T [place] 106 degrees MUSE SYSTEM INTERPRETATION Normal sinus [...] (L) 20 - 40 KATALINA RYAN mg/dL [facility] Comment: Prealbumin levels are [...] City/State/[place] [address] (ABNORMAL) Basic Metabolic Panel (non-fasting) (08/06/2017 12:32 PM EST) athologist Signature Glucose Lvl 92 65 - 199 [facility] mg/dL [facility] Comment: Diabetes: >=200 mg/dL [...] in patients with acute kidney failure. [email or web address] [email or web address] [email or web address] Specimen Anatomical Collection Method Collection Time Receive d Time (Source) Location / / Volume Laterality Blood specimen 08/06/2017 12:32 8 1:15 (specimen) PM EST PM EST Resulting Agency Comment Spec In Lab Arik Clement MD CHEMISTRY ORDERABLES Performing Organization Address City/State/[place] [address] (ABNORMAL) Hemogram (08/06/2017 12:32 PM EST) Analysis Performed At Patho logist Time Signature WBC 11.8 (H) 4.0 - 9.5 [facility] x10(3)/[facility] LABORATORY RBC 3.49 (L) 4.58 - [facility] 5.54 [facility] x10(6)/[facility] LABORATORY Hemoglobin 9.9 (L) 13.7 - [facility] 16.5 gm/dL [facility] Hematocrit 32.0 (L) 40.5 - [facility] 48.5 % [facility] MCV 91.7 82.9 - [facility] 93.1 [facility] LABORATORY MCH 28.4 27.5 - [facility] 32.1 pg [facility] MCHC 30.9 (L) 32.0 - [facility] 35.7 gm/dL [facility] Platelets 326 145 - 357 [facility] x10(3)/[facility] LABORATORY RDWSD 53.4 (H) 36.0 - [facility] 45.0 [facility] LABORATORY RDWCV 16.0 (H) 11.4 - [facility] 13.8 % [facility] MPV 9.1 7.6 - 12.9 [facility] LABORATORY nRBC % Auto 0.0 % [facility]ORY nRBC Abs Auto 0.000 0.000 - [facility] 0.000 [facility] x10(3)/[facility] LABORATORY Specimen Anatomical Collection Method Collection Time Receive d Time (Source) Location / / Volume Laterality Blood specimen 08/06/2017 12:32 8 1:15 (specimen) PM EST PM EST Resulting Agency Comment Spec In Lab Arik Clement MD HEMATOLOGY ORDERABLES Performing Organization Address City/State/[place] [address] documented in this encounter Visit Diagnoses Diagnosis Ischemia of foot Unspecified circulatory system disorder documented in this encounter Care Teams Racing Board Marker Relationship Specialty Start Date End Date Lovely Vicente MD PCP - General 04/16/[address] [place] [address] documented as of this encounter
--- OUTSIDE RECORDS SUMMARY | 2022-04-22 08:21 | XMS_ITS | Encounter Summary ---
:1945 Author Organization [facility] [place] [address] Care Team Providers Name Role Phone Lovely Vicente MD Primary Care Provider Encounter Details Date Type Department Care Team Description 08/04/2017 Orders Only Cardiac Surgery Makayla Wilson APRN [facility] [place] [address] CARDIAC SURGERY [phone] [place], [place] [address] (Wo rk) Social History Tobacco [...] MD [facility] er [place], [place] [address] (Wo rk) 05/28/2022 Laboratory Appointment Lab 05/28/2022 Office Visit Cardiology Zulma Dolan MD [facility] [place] [address] Liz Poole PA [facility] [place] [address] 06/10/2022 Office Visit Dermatology Laura Scherer MD [facility] ER DR TEJA GR[address]DERMAT [place], [place] [address] (Wo rk) documented as of this encounter Visit Diagnoses Not on filedocumented in this encounter Care Teams Licensed Bondsman Relationship Specialty Start Date End Date Lovely Vicente MD PCP - General 04/16/[address] [place] [address] documented as of this encounter
--- OUTSIDE RECORDS SUMMARY | 2022-04-22 08:21 | XMS_ITS | Encounter Summary ---
:1945 Author Organization [facility] [place] [address] Care Team Providers Name Role Phone Lovely Vicente MD Primary Care Provider Reason for Visit Auth/Cert Specialty Diagnoses / Procedures Referred By Contact Refer red To Contact Diagnoses Critical lower limb ischemia CELLULITIS RT FOOT Procedures EMERGENCY Referral ID Status Reason Start Date Expiration Date Visits Requ ested Visits Authorized [id number] 1 1 Encounter Details Date Type Department Care Team Description 08/06/2017 Laboratory Appointment Lab at [facility] [place] [place] Ischemia of foot [facility] [place] [address] Social History Tobacco Use Types Packs/Day [...] MD [facility] er Dr [place] [address] (Wo rk) 05/28/2022 Laboratory Appointment Lab 05/28/2022 Office Visit Cardiology Zulma Dolan MD [facility] [place] [address] Liz Poole PA [facility] [place] [address] 06/10/2022 Office Visit Dermatology Laura Scherer MD [facility] ER DR [address] RD-DERMAT [facility] [place], [place] [address] (Wo rk) documented as of [...] Signature Prealbumin 19 (L) 20 - 40 [facility] mg/dL [facility]ORY Comment: Prealbumin levels are [...] City/State/[place] [address] (ABNORMAL) Basic Metabolic Panel (non-fasting) (08/06/2017 12:32 PM EST) P athologist Signature Glucose Lvl 92 65 - 199 [facility] mg/dL [facility] [...] or in patients with acute kidney failure. [email or web address]DHnkdep [email or web address]DHMCnkf Specimen Anatomical Collection Method Collection Time Receive d Time (Source) Location / / Volume Laterality Blood specimen 08/06/2017 12:32 8 1:15 (specimen) PM EST PM EST Resulting Agency Comment Spec In Lab Arik Clement MD CHEMISTRY ORDERABLES Performing Organization Address City/State/[place] [address] (ABNORMAL) Hemogram (08/06/2017 12:32 PM EST) Analysis Performed At Patho logist Time Signature WBC 11.8 (H) 4.0 - 9.5 [facility] x10(3)/[facility] LABORATORY RBC 3.49 (L) 4.58 - [facility] 5.54 [facility] x10(6)/[facility] LABORATORY Hemoglobin 9.9 (L) 13.7 - [facility] 16.5 gm/dL [facility] LABORATORY Hematocrit 32.0 (L) 40.5 - [facility] 48.5 % [facility] LABORATORY MCV 91.7 82.9 - [facility] 93.1 [facility] LABORATORY MCH 28.4 27.5 - KATALINA DAVIS 32.1 pg [facility] LABORATORY MCHC 30.9 (L) 32.0 - KATALINA DAVIS 35.7 gm/dL [facility]ORY Platelets 326 145 - 357 [facility] x10(3)/[facility] LABORATORY RDWSD 53.4 (H) 36.0 - KATALINA DAVIS 45.0 [facility] LABORATORY RDWCV 16.0 (H) 11.4 - KATALINA RYAN 13.8 % [facility] LABORATORY MPV 9.1 7.6 - 12.9 [facility] LABORATORY nRBC % Auto 0.0 % [facility] LABORATORY nRBC Abs Auto 0.000 0.000 - KATALINA DAVIS 0.000 [facility] x10(3)/[facility] LABORATORY Specimen Anatomical Collection Method Collection Time Receive d Time (Source) Location / / Volume Laterality Blood specimen 08/06/2017 12:32 8 1:15 (specimen) PM EST PM EST Resulting Agency Comment Spec In Lab Arik Clement MD HEMATOLOGY ORDERABLES Performing Organization Address City/State/ZIP Code Phon e Number [place] [id number] documented in this encounter Visit Diagnoses Diagnosis Ischemia of foot Unspecified circulatory system disorder documented in this encounter Care Teams International Freight Forwarder Relationship Specialty Start Date End Date Lovely Vicente MD PCP - General 04/16/[address] [place] [address] documented as of this encounter
--- OUTSIDE RECORDS SUMMARY | 2022-04-22 08:22 | XMS_ITS | Encounter Summary ---
:1945 [place] [address] Care Team Providers Name Role Phone Lovely Vicente MD Primary Care Provider Encounter Details Date Type Department Care Team Description 07/16/2017 Telephone Endocrinology at [facility] Manuela Holliday, [facility] [place] [address] ENDOCRINOLOGY DEPT [phone] [place], [place] [address] (Wo rk) Social History Tobacco [...] Dolan MD [facility] Dr [place], [place] [address] (Wo rk) 05/28/2022 Laboratory Appointment Lab 05/28/2022 Office Visit Cardiology Zulma Dolan MD [facility] [place] [address] Liz Poole PA [facility] [place] [address] 06/10/2022 Office Visit Dermatology Laura Scherer MD [facility] DR [address] [place], [place] [address] (Wo rk) documented as of this encounter Visit Diagnoses Not on filedocumented in this encounter Care Teams Clinical Coder Relationship Specialty Start Date End Date Lovely Vicente MD PCP - General 04/16/[address] [place] [address] documented as of this encounter
--- OUTSIDE RECORDS SUMMARY | 2022-04-22 08:22 | XMS_ITS | Encounter Summary ---
:1945 [place] [address] Care Team Providers Name Role Phone Lovely Vicente MD Primary Care Provider Encounter Details Date Type Department Care Team Description 08/03/2017 Hospital Encounter Radiology Library at [place], Tommy Mijares [facility] [place] [address] VASCULAR SURGERY [phone] [place], [place] [address] (Wo rk) Social History Tobacco [...] Zulma Dolan MD [facility] Dr [place], [place] [address] (Wo rk) 05/28/2022 Laboratory Appointment Lab 05/28/2022 Office Visit Cardiology Zulma Dolan MD [facility] [place] [address] Liz Poole PA [facility] [place] [address] 06/10/2022 Office Visit Dermatology Laura Scherer MD [facility] DR TEJA GR-DERMAT [place], [place] [address] (Wo rk) documented as [...] Received Time / Laterality Volume Narrative [facility] - 08/03/2017 6:01 PM EST This exam is for storage only and is aut o-finalizing. Arik Clement MD G FILM LIBRARY ORDERABLES Performing Organization Address City/State/ZIP Code Phon e Number [place], [place] documented in this encounter Visit Diagnoses Diagnosis Pain Generalized pain documented in this encounter Care Teams Raw Material Planner Relationship Specialty Start Date End Date Lovely Vicente MD PCP - General 04/16/[address] [place] [address] documented as of this encounter
--- OUTSIDE RECORDS SUMMARY | 2022-04-22 08:22 | XMS_ITS | Encounter Summary ---
:1945 Author Organization [facility] [place] [address] Care Team Providers Name Role Phone Lovely Vicente MD Primary Care Provider Encounter Details Date Type Department Care Team Description 07/29/2017 Transcribe Orders Laboratory Lovely Vicente MD [address] [address] [place] [address] [phone] (Wo rk) Social History Tobacco Use Types [...] [facility] er [address] [place] [address] (Wo rk) 05/28/2022 Laboratory Appointment Lab 05/28/2022 Office Visit Cardiology Zulma Dolan MD [facility] [place] [address] Liz Poole PA [facility] [place] [address] 06/10/2022 Office Visit Dermatology Laura Scherer MD [facility] ER DR TEJA GR-DERMAT [place], [place] [address] (Wo rk) documented as of this encounter Visit Diagnoses Not on filedocumented in this encounter Care Teams Doughnut Icer Machine Relationship Specialty Start Date End Date Lovely Vicente MD PCP - General 04/16/[address] [place] [address] documented as of this encounter
--- OUTSIDE RECORDS SUMMARY | 2022-04-22 08:22 | XMS_ITS | Encounter Summary ---
:1945 Author Organization [facility] [place] [address] Care Team Providers Name Role Phone Lovely Vicente MD Primary Care Provider Reason for Visit Reason Comments Foot Pain Auth/Cert Specialty Diagnoses / Procedures Referred By Contact Refer red To Contact Diagnoses Ischemic foot Procedures NAYE OBSVO Referral ID Status Reason Start Date Expiration Date Visits Requ ested Visits Authorized [id number] 1 1 Encounter Details Date Type Department Care Team Description 07/27/2017 Emergency 1 [facility] Lokesh Swenson MD [facility] [place] [address] Femoral artery pseudo-aneurysm, right; [facility] Tam Bauman MD [facility] [place] [address] [place] [address] Social History Tobacco Use Types Packs/Day [...] Gregory Fatima Patient Age: 72 y.o. Language: Ugandan Race: White Ethnicity: Not nor Admit date: [...] through the [facility] . Issues after hours and on weekends [...] he was started on Coumadin given elevated [id number] score. He presented 2 weeks following that, on 07/20, with RLE pain/pallor andwas found to have critical limb ischemia in setting of subtherapeutic INR, pseudoaneurysm Rt CANDLE MOLDER HAND and occlusion b/l ant tibial arteries. He [...] in the last 7068 hours. Invalid input(s): [id number] Recent Labs 07/08/17 0400 07/07/17 0515 07/06/17 [...] THREE L Lab 3L [facility] [phone] 07/30/2017 9:40 AM Danette Maxwell APRN [facility]iology [place] [phone] 08/04/2017 1:00 PM Daniele Mooney [place] [facility] [place] [phone] 08/04/2017 2:15 PM Arik Clement MD V[facility] Surgery [facility] [place] [phone] 08/11/2017 10:00 AM [facility] ROOM 2 XRay [place] [phone] Please go to Assessment Nurse Area 3T ([place] Location). 08/11/2017 11:00 AM Yuan Retana MD Cardiac Surgery [place] [phone] 09/07/2017 3:00 PM LAB, THREE L Lab 3L [facility] [phone] 09/07/2017 4:00 PM Luz Prescott MD Endocrinology [place] [phone] Discharge References/Attachments None documented in this encounter [...] Gas) No results found for: PHART, PO2ART, GVV2YVJ Assessment/Plan: 72 y.o. 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 Lagrange body weight: 68.4 kg (150 lb 12.7 [...] spent >30 minutes (Day of Discharge Code 54246) involved in the final examination of the [...] he was started on Coumadin given elevated [id number] score. He presented 2 weeks following that, on 07/20, with RLE pain/pallor andwas found to have critical limb ischemia in setting of subtherapeutic INR, pseudoaneurysm Rt CANDLE MOLDER HAND and occlusion b/l ant tibial arteries. He [...] 7.93) performed by Yuan Rteana MD at [facility] MAIN OR [...] MD at [facility] MAIN OR Prior To Admission Medications: [...] Procedure Component Value Units Date/Time Blood culture [[id number]] Collected: 07/09/1739 Lab Status: Final result Specimen: Blood from Arm, Right Updated: 07/14/17701 Blood Culture No growth at 5 days. Blood culture [[id number]] Collected: 07/09/170 Lab Status: Final result Specimen: [...] Full Code Family PCP Lovely Vicente MD [phone] Attestation Please see my note for details [...] encounter Miscellaneous Notes Plan of Care - [place]Joyce Damian, PT - 07/27/2017 3:26 PM EST [...] Anticipated Discharge Disposition: home with assist Pager: [phone] JOYCE KING, PT Inpatient Physical Therapy 2017 [...] patient's evaluation including the following functional test(s) [facility]. Current ability measures, co-morbidities and clinical [...] MD at [facility] MAIN OR MEDICATIONS: No current facility-administered [...] [facility] Plan of Care - Jazmín [...] Zulma Dolan MD [facility] [place], [place] [address] (Wo rk) 05/28/2022 Laboratory Appointment Lab 05/28/2022 Office Visit Cardiology Zulma Dolan MD [facility] [place] [address] Liz Poole PA [facility] [place] [address] 06/10/2022 Office Visit Dermatology Laura Scherer MD [facility] [address] [facility] [place], [place] [address] (Wo rk) documented as of [...] Signature POC Glucose 175 65 - 199 [facility] mg/dL [facility] [...] Organization Address City/State/[place] [address] Arterial Duplex Leg, Unil (07/27/2017 7:40 AM EST) Component Value Ref Test Analysis Performed At Patholo gist Range Method Time Signature VB Text Department: Vascular Surgery Lab VASCUBASE Report Patient: [id number] (GREGORY FATIMA) CPT: 71698 ICD10: I97.610;I72.4;Z09 Referring Physician: TAM BAUMAN ?? [...] MD VASCULAR ORDERABLES Performing Organization Address City/[facility]/ZIP Code Phon e Number VASCUBASE POCT Glucose (07/27/2017 6:51 AM EST) P athologist Signature POC Glucose 96 65 - 199 [facility] mg/dL [facility], [...] Performing Organization Address City/[facility]/ZIP [facility] Phon e Number [address] ABORH Recheck Status (07/27/2017 [...] [facility]/[place] [address] Gold Tube HOLD (07/27/2017 12:53 AM EST) P athologist Signature Gold Hold Sample in [facility]. [facility] LABORATORY Specimen Anatomical Collection Method Collection Time Receive d Time (Source) Location / / Volume Laterality Blood specimen Venous Draw / 07/27/2017 12:53 07/27/19 18 1:01 (specimen) Unknown AM EST AM EST Angela Swenson MD CHEMISTRY ORDERABLES Performing Organization Address City/State/[place] [address] (ABNORMAL) Differential, Automated (07/27/2017 12:53 AM EST) Patholo gist Method Time Signature Neutrophils % 75.0 % [facility] LABORATORY Neutr Abs (ANC) 11.30 (H) 1.70 - [facility] 6.10 [facility] x10(3)/[facility] LABORATORY Lymphocytes % 9.9 % [facility] LABORATORY Lymphocytes Abs 1.5 0.9 - 3.2 [facility] x10(3)/[facility] LABORATORY Monocytes % 8.6 % [facility] LABORATORY Monocyte Abs 1.3 (H) 0.3 - 0.9 [facility] x10(3)/[facility] LABORATORY Eosinophils % 4.8 % [facility] LABORATORY Eosinophils Abs 0.7 (H) 0.0 - 0.4 [facility] x10(3)/[facility] LABORATORY Basophils % 0.8 % [facility] LABORATORY Basophils Abs 0.1 0.0 - 0.1 [facility] x10(3)/[facility] LABORATORY Immature Gran % 0.90 [...] Gran Abs 0.13 (H) 0.00 - 0.04 x10(3)/[facility] LABORATORY Specimen Anatomical Collection Method Collection Time Receive d Time (Source) Location / / Volume Laterality Blood specimen 07/27/2017 12:53 8 1:00 (specimen) AM EST AM EST Resulting Agency Comment Spec In Lab Angela Swenson MD HEMATOLOGY ORDERABLES Performing Organization Address City/State/[place] [address] (ABNORMAL) Hemogram (07/27/2017 12:53 AM EST) Analysis Performed At Patho logist Time Signature WBC 15.0 (H) 4.0 - 9.5 [facility] x10(3)/[facility] LABORATORY RBC 3.59 (L) 4.58 - [facility] 5.54 [facility] x10(6)/[facility] LABORATORY Hemoglobin 10.3 (L) 13.7 [facility] gm/dL [facility] LABORATORY Hematocrit 32.6 (L) 40.5 - [facility] 48.5 % [facility] LABORATORY MCV 90.[address] 82.[address] [facility] 93.1 [facility] LABORATORY MCH 28.7 27.5 - [facility] RYAN 32.1 pg [facility] LABORATORY MCHC 31.6 (L) 32.0 - [facility] 35.7 gm/dL [facility] LABORATORY Platelets 322 145 - 357 [facility] x10(3)/[facility] RDWSD 48.7 (H) 36.0 - [facility] RYAN 45.0 [facility] LABORATORY RDWCV 14.7 (H) 11.4 - [facility] RYAN 13.8 % [facility] LABORATORY MPV 8.9 7.6 - 12.9 [facility] LABORATORY nRBC % Auto 0.0 % [facility] LABORATORY nRBC Abs Auto 0.000 0.000 - [facility] RYAN 0.000 [facility] x10(3)/[facility] LABORATORY Specimen Anatomical Collection Method Collection Time Receive d Time (Source) Location / / Volume Laterality Blood specimen 07/27/2017 12:53 8 1:00 (specimen) AM EST AM EST Resulting Agency Comment Spec In Lab Angela Swenson MD HEMATOLOGY ORDERABLES Performing Organization Address City/State/[place] [address] Antibody screen (07/27/2017 12:53 AM EST) Patholo gist Method Time Signature Ab Screen Negative [facility] LABORATORY Expires at 07/30/2017 KATALINA ZHAORYAN [id number] on: [facility] LABORATORY Specimen Anatomical Collection Method Collection Time Receive d Time (Source) Location / / Volume Laterality Blood specimen 07/27/2017 12:53 8 (specimen) AM EST 12:58 AM EST Resulting Agency Comment Spec In Lab Angela Swenson MD BLOOD BANK ORDERABLES Performing Organization Address City/[facility]/[place] [address] ABO/Rh Typing (07/27/2017 12:53 [...] ORDERABLES Performing Organization Address City/[facility] [place] [address] (ABNORMAL) Prothrombin Time (07/27/2017 12:53 AM EST) P athologist Signature PT 19.1 (H) 11.8 - 14.0 [facility] [...] Organization Address City/State/[place] [address] (ABNORMAL) Basic Metabolic Panel (non-fasting) (07/27/2017 12:53 AM EST) athologist Signature Glucose Lvl 95 65 - 199 [facility] mg/dL [facility] [...] CENTER LABORATORY Estimated GFR 46 (L) >=60 [facility] LABORATORY Comment: The reported eGFR should be multiplied b y 1.2 for patients. The MDRD is not an appropriate measure o f renal function for patients with body mass extremes or in patients with acute kidney failure. 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
Routine documented in this encounter Care Teams Skilled Nursing Professional Relationship Specialty Start Date End Date Lovely Vicente MD PCP - General 04/16/15 [facility] [address] [facility] [address] [place] [address] documented as of this encounter
--- OUTSIDE RECORDS SUMMARY | 2022-04-22 08:22 | XMS_ITS | Encounter Summary ---
:1945 [place] [address] Care Team Providers Name Role Phone Lovely Vicente MD Primary Care Provider Reason for Visit Reason Comments Hospital Transfer cold foot post CABG Auth/Cert Specialty Diagnoses / Procedures Referred By Contact Refer red To Contact Diagnoses Critical lower limb ischemia Procedures NAYE IPI Referral ID Status Reason Start Date Expiration Date Visits Requ ested Visits Authorized [id number] 1 1 Encounter Details Date Type Department Care Team Description 07/20/2017 Hospital Encounter 4 Herminia Ibarra MD [facility] EMERGENCY [place] [address] Critical lower limb [facility] Arik Clement MD [facility] VASCULAR [place] [address] [place] [address] Social History Tobacco Use Types Packs/Day Years [...] home. Important Studies and Lab Data: Labs: [facility] Lab Results Component Value Date INR 1.5 (H) 07/20/2017 PT 17.7 (H) 07/20/2017 PTT 79 (H) 07/20/2017 Studies: 07/20/2017 JUILAN Findings: Right ?Pressure (mm Hg) ?? JULIAN [...] For any problems or questions please call [phone] ZELDA Smith, specialty foods cook Nurse Clinician For issues on weeknights after 5pm and weekends please call [phone] and ask for the Vascular Fellow solution mixer. General Instructions None Future Appointments and Orders Future Appointments Provider Department Dept Phone 08/04/2017 1:00 PM Daniele Mooney [place] [facility] [place] [phone] 08/04/2017 2:15 PM Arik Clement MD Vascular Surgery at [place] [phone] 09/07/2017 3:00 PM MAYRA CHACON Lab [facility] [phone] 09/07/2017 4:00 PM Luz Prescott MD Endocrinology at [place] [phone] Future Orders Complete By Expires Arterial Duplex Leg, Unil [VAS32 Custom] 07/27/2017 (Approximate) 01/26/2018 Process Instructions: There is no in-house vascular salvage laborer available on weeknights (5pm-8am), weekends, or holidays. IF THIS IS A REQUEST FOR AN EMERGENT STUDY DURING THOSE HOURS, please have the senior provider responsible for the patient page the Vascular Surgery Fellow/Senior Resident solution mixer to discuss options. Scheduling Instructions: Questions: Indication for study/signs & symptoms: Right femoral PSA s/p cardiac cath Question to be answered: bloodflow to PSA Laterality: Right Is there a RIGHT LOWER EXTREMITY graft?: No Lower limb right segments: Common Femoral Is there a stent?: No At which location will this be performed?: [place] Referral to Home Health - at DISCHARGE [[id number] CPT(R)] As directed Process Instructions: Scheduling Instructions: Comments: DOCUMENTATION FOR VNA SERVICES (INCLUDING THOSE PATIENTS WITH MEDICARE COVERAGE REQUIRING HOME VNA SERVICES AND/OR HOSPICE SERVICES) PATIENT'S LOCATION: Gregory Fatima [address] [place] [address] [place] [phone] (home) Cell: Telephone Information: Commercial Ocean Clammer's Name: self In discussion with the attending physician, it is certified that this patient is under their care and that they, or a Nurse Practitioner,Clinical Nurse specialist or Physician Seaweed Harvester who is working directly with them, had [...] CARE AGENCY: [facility] ([facility] [place] [facility]-is in [place] PHONE: [phone] FAX: [phone] Start of care: 24- 48 hours FOR [...] patient'sPCP: Lovely Vicente MD [address] [facility] [place] / [place] [address] All VNA agencies which cover the area [...] For any problems or questions please call [phone] ZELDA Smith, specialty foods cook Nurse Clinician For issues on weeknights after 5pm and weekends please call [phone] and ask for the Vascular Fellow solution mixer. documented in this encounter Medications at [...] RN - 07/20/2017 2:53 PM EST The patient/financial representative has been provided a list of Home Health Agencies/DME vendors which serve their preferred geographic area. A letter describing our affiliations was reviewed with them and theywere educated about their right to choose where referrals are placed. Patient requests referral to [facility] [employer]. PHONE: [phone] FAX: [phone]. Expected date of discharge: 07/20/2017 . Referral routed to the [employer] for matching with agency/vendor and to provide any required information. Naty Pulliam RN - 07/20/2017 11:37 AM EST The patient/financial representative has been provided a list of Home Health Agencies/DME vendors which serve their preferred geographic area. A letter describing our affiliations was reviewed with them and theywere educated about their right to choose where referrals are placed. Patient requests referral to [facility] ([facility] [place] [facility]- is in [facility] PHONE: [phone] FAX: [phone]. Expected date of discharge: 07/20/2017 . Referral routed to the [employer] for matching with agency/vendor and to provide any required information. Katina Pulliam RNcarton maker Janneth Lee MD - 07/20/2017 7:29 AM EST Vascular Surgery Progress Note Patient ID rGegory Fatima is a 72 y.o. male [...] [facility] Functional Status/Social Hx: Social History [...] -ISS -pain control Discussed with Vascular Fellow solution mixer. Chris Valadez MD PGY2 Pager [phone] documented in this encounter ED Notes Annita Reaves MD - 07/20/2017 3:15 PM EST Emergency Department Gregory Fatima is a 72 y.o. male who [place] [facility] with arterial thrombosis. History of Present Illness [...] Days: [facility] 07/05/17 Anticipated Length Of Stay (If known): [...] Health/Prescription Coverage: Primary Insurance: MEDICARE Secondary Insurance: [employer] [facility] Prescription Coverage: See above Preferred Pharmacy: [facility] Other: N/A Primary Care Provider: Lovely Vicente MD [phone] Patient/Caregiver Goals of Treatment: Patient plans to return home when medically ready Potential Needs for Transition of Care: Rehab/SNF: N/A Home Health: [facility] ([facility] [place] [facility]-is in [place]) PHONE: [phone] FAX: [phone] DME: N/A Dialysis: N/A Community Resources: N/A Transportation: Patient family will transport Other: N/A Anticipated Barriers to Discharge/Special Considerations: None Plan: Patient plans to return home with home health services when medically ready A member of the Care Management team will continue to monitor progress, follow for continuity of care and assist with transition of care planning. Naty Pulliam, RN Pager: [phone] ED Triage - Rayna Weir RN - 07/20/2017 12:28 AM EST Pt transferred from [place] for blue right foot and painful toes. [...] MD [facility] [place] [address] (Wo rk) 05/28/2022 Laboratory Appointment Lab 05/28/2022 Office Visit Cardiology Zulma Dolan MD [facility] [place] [address] Liz Poole PA [facility] [place] [address] 06/10/2022 Office Visit Dermatology Laura Scherer MD [facility] DR [address]MAT OGY [place], [place] [address] (Wo rk) documented as of this encounter Procedures Procedure Name Priority Date/Time Associated Comments Diagnosis RENOVATOR MACHINE OPERATOR SCAN 09/02/2017 12:00 Res ults for this [...] LAB EST procedure are i n ([facility] the results section. APTT STAT 07/20/2017 2:25 AM Results f or this EST procedure are i n the results section. PROTHROMBIN TIME STAT 07/20/2017 2:25 AM Resul ts for this EST procedure are i n the results section. BASIC METABOLIC PANEL STAT 07/20/2017 2:25 AM Results for this (NON-FASTING) EST procedure are in the results section. documented in this encounter Results SCAN DOC: RENOVATOR MACHINE OPERATOR (09/02/2017 12:00 AM EST) Narrative 09/02/2017 12:00 AM EST This result has an attachment that is no t available. Ordered by an unspecified provider. Scanning Provider MEDIA MGR SCAN EXT ORDR/RSLT POCT Glucose (07/20/2017 12:04 PM EST) P athologist Signature POC Glucose 189 65 - 199 [facility] mg/dL [facility] Comment: Supplemental ranges: <140 mg/dL before meals <180 mg/dL all other times of the day Specimen Anatomical Collection Method Collection Time Receive d Time (Source) Location / / Volume Laterality Blood specimen 07/20/2017 12:04 7 (specimen) PM EST 12:04 PM EST Arik Clement MD POINT OF CARE TEST ORDERABLE S Performing Organization Address City/State/[place] [address] (ABNORMAL) Differential, Automated (07/20/2017 10:34 AM EST) Patholo gist Method Time Signature Neutrophils % 84.3 % [facility] Neutr Abs (ANC) 14.27 (H) 1.70 - [facility] 6.10 [facility] x10(3)/[facility] LABORATORY Lymphocytes % 5.6 % [facility] Lymphocytes Abs 1.0 0.9 - 3.2 [facility] x10(3)/[facility] LABORATORY Monocytes % 6.1 % [facility] Monocyte Abs 1.0 (H) 0.3 - 0.9 [facility] x10(3)/[facility] LABORATORY Eosinophils % 2.4 % [facility] Eosinophils Abs 0.4 0.0 - 0.4 [facility] x10(3)/[facility] LABORATORY Basophils % 0.5 % [facility] Basophils Abs 0.1 0.0 - 0.1 [facility] x10(3)/[facility] LABORATORY Immature Gran % 1.10 % [facility] [...] Abs 0.19 (H) 0.00 - 0.04 x10(3)/[facility] LABORATORY Specimen Anatomical Collection Method Collection Time Receive d Time (Source) Location / / Volume Laterality Blood specimen 07/20/2017 10:34 7 (specimen) AM EST 10:39 AM EST Resulting Agency Comment Spec In Lab Arik Clement MD HEMATOLOGY ORDERABLES Performing Organization Address City/State/[place] [address] (ABNORMAL) Hemogram (07/20/2017 10:34 AM EST) Analysis Performed At Patho logist Time Signature WBC 17.0 (H) 4.0 - 9.5 [facility](3[facility] LABORATORY RBC 3.70 (L) 4.58 - [facility] 5.54 [facility] x10(6)/[facility] LABORATORY Hemoglobin 10.8 (L) 13.7 - [facility] 16.5 gm/dL [facility] Hematocrit 33.4 (L) 40.5 - [facility] 48.5 % [facility] MCV 90.3 82.9 - [facility] 93.1 [facility] LABORATORY MCH 29.2 27.5 - [facility] RYAN 32.1 pg [facility] MCHC 32.3 32.0 - [facility] RYAN 35.7 gm/dL [facility] Platelets 211 145 - 357 [facility] x10(3)/[facility] LABORATORY RDWSD 49.1 (H) 36.0 - [facility] RYAN 45.0 [facility] LABORATORY RDWCV 14.7 (H) 11.4 - [facility] RYAN 13.8 % [facility] MPV 9.2 7.6 - 12.9 [facility] nRBC % Auto 0.0 % [facility] nRBC Abs Auto 0.000 0.000 - [place] RYAN 0.000 [facility] x10(3)/[facility] LABORATORY Specimen Anatomical Collection Method Collection Time Receive d Time (Source) Location / / Volume Laterality Blood specimen 07/20/2017 10:34 7 (specimen) AM EST 10:39 AM EST Resulting Agency Comment Spec In Lab Arik Clement MD HEMATOLOGY ORDERABLES Performing Organization Address City/State/[place] [address] (ABNORMAL) APTT (07/20/2017 10:34 [...] Clement MD HEMATOLOGY ORDERABLES Performing Organization Address City/[facility]/[place]IP [place] [address] POCT Glucose (07/20/2017 7:41 AM EST) athologist Signature POC Glucose 174 65 - 199 [facility] mg/dL [facility] Comment: Supplemental ranges: <140 mg/dL before meals <180 mg/dL all other times of the day Specimen Anatomical Collection Method Collection Time Receive d Time (Source) Location / / Volume Laterality Blood specimen 07/20/2017 7:41 AM 017 7:41 (specimen) EST AM EST Arik Clement MD POINT OF CARE TEST ORDERABLE S Performing Organization Address City/[facility]/ZIP Code Phon e Number [address] JULIAN, legs, multiple levels (07/20/2017 7:33 AM EST) Component Value Ref Test Analysis Performed At Patholo gist Range Method Time Signature VB Text Department: Vascular Surgery Lab VASCUBASE Report Patient: [id number] (GREGORY FATIMA) CPT: 98372 ICD10: I75.021;I99.8 Referring Physician: ARIK CLEMENT ?? [...] Department: Vascular Surgery Lab VASCUBASE Report Patient: [id number] (GREGORY FATIMA) CPT: 65351 ICD10: I97.610;I99.8 Referring Physician: ARIK CLEMENT ?? [...] Glucose 199 65 - 199 [facility] mg/dL [facility] Comment: Supplemental ranges: <140 mg/dL before meals <180 mg/dL all other times of the day Specimen Anatomical Collection Method Collection Time Receive d Time (Source) Location / / Volume Laterality Blood specimen 07/20/2017 3:41 AM 017 3:41 (specimen) EST AM EST Arik Clement MD POINT OF CARE TEST ORDERABLE S Performing Organization Address City/[facility]/ZIP [facility] [place] [address] Lactate, whole blood, send to lab (Leb/CGP) (07/20/2017 2:25 AM EST) athologist Signature Lactate WB 2.0 0.5 - 2.2 [facility] mmol/L [facility] Specimen Anatomical Collection Method Collection Time Receive d Time (Source) Location / / Volume Laterality Blood specimen Venous Draw / 07/20/2017 2:25 AM 2016 2:37 (specimen) Unknown EST AM EST Resulting Agency Comment Spec In Lab Zulma Samuel MD CHEMISTRY ORDERABLES Performing Organization Address City/[facility] Code Phon e Number [address] (ABNORMAL) APTT (07/20/2017 2:25 [...] Reaves MD HEMATOLOGY ORDERABLES Performing Organization Address City/[facility]/[place] [address] (ABNORMAL) Prothrombin Time (07/20/2017 [...] Organization Address City/State/[place] [address] (ABNORMAL) Basic Metabolic Panel (non-fasting) (07/20/2017 2:25 AM EST) P athologist Signature Glucose Lvl 187 65 - 199 [facility] mg/dL [facility] Comment: Diabetes: >=200 mg/dL plus symp toms BUN 35 (H) 10 - 20 mg/dL [facility] Creatinine 1.51 (H) 0.80 - 1.50 mg/dL [facility] Sodium 134 (L) 135 - 145 mmol/L [facility] Potassium Not Perf 3.5 - 5.0 mmol/L [facility] Comment: Specimen hemolyzed. Called by: [facility], Read back by: Chitra Orantes, Date/Time:07/20/17 [...] or in patients with acute kidney failure. http://Derivix/DHnkdep http://[employer]/DHMCnkf Specimen Anatomical Collection Method Collection Time Receive d Time (Source) Location / / Volume Laterality Blood specimen 07/20/2017 2:25 AM 017 2:33 (specimen) EST AM EST Resulting Agency Comment Spec In Lab Annita Reaves MD CHEMISTRY ORDERABLES Performing Organization Address City/State/ZIP Code Phon e Number [place] [phone] documented in this encounter [...]
Routine documented in this encounter Care Teams Neighborhood Planner Relationship Specialty Start Date End Date Lovely Vicente MD PCP - General 04/16/[address] [place] [address] documented as of this encounter
--- OUTSIDE RECORDS SUMMARY | 2022-04-22 08:22 | XMS_ITS | Encounter Summary ---
:1945 [place] [address] Care Team Providers Name Role Phone Lovely Vicente MD Primary Care Provider Encounter Details Date Type Department Care Team Description 07/29/2017 Hospital Encounter Vascular Lab at Critic monica Huber lower limb [facility] [place] [phone] Social History Tobacco Use Types Packs/Day Years [...] Zulma Dolan MD [facility] [place], [place] [address] (Wo rk) 05/28/2022 Laboratory Appointment Lab 05/28/2022 Office Visit Cardiology Zulma Dolan [place] [address] Liz Poole PA [facility] [place] [address] 06/10/2022 Office Visit Dermatology Laura Scherer MD [facility] [address] O[place], [place] [address] (Wo rk) documented as of this encounter Visit Diagnoses Diagnosis Critical lower limb ischemia Unspecified circulatory system disorder documented in this encounter Care Teams Countersinker Relationship Specialty Start Date End Date Lovely Vicente MD PCP - General 04/16/[address] [place] [address] documented as of this encounter
--- OUTSIDE RECORDS SUMMARY | 2022-04-22 08:22 | XMS_ITS | Encounter Summary ---
:1945 Author Organization [facility] [place] [address] Care Team Providers Name Role Phone Lovely Vicente MD Primary Care Provider Reason for Visit Reason Comments Follow-up Encounter Details Date Type Department Care Team Description 07/29/2017 Office Visit Cardiac Surgery at [facility] Yuan Retana MD S/P CABG x [address] [facility] [place] [address] CARDIOTHORACIC SURGERY [phone] [place], [place] [address] (Wo rk) Social History [...] evaluation by vascular surgery. Yuan Retana MD [phone] documented in this encounter Plan of Treatment Upcoming Encounters Date Type Specialty Care Team Description 05/28/2022 Appointment Cardiology Zulma Dolan MD [facility] er [address] [place] [address] (Wo rk) 05/28/2022 Laboratory Appointment Lab 05/28/2022 Office Visit Cardiology Zulma Dolan MD [facility] [place] [address] Liz Poole PA [facility] [place] [address] 06/10/2022 Office Visit Dermatology Laura Scherer MD [facility] ER [address] [place], [place] [address] (Wo rk) documented as of this encounter Visit Diagnoses Diagnosis S/P CABG x 3 Postsurgical aortocoronary bypass status documented in this encounter Care Teams Salicylic Acid Blender Relationship Specialty Start Date End Date Lovely Vicente MD PCP - General 04/16/[address] [place] [address] documented as of this encounter
--- OUTSIDE RECORDS SUMMARY | 2022-04-22 08:22 | XMS_ITS | Encounter Summary ---
:1945 Author Organization [facility] [place] [address] Care Team Providers Name Role Phone Lovely Vicente MD Primary Care Provider Encounter Details Date Type Department Care Team Description 08/02/2017 Telephone Pain Management at Angeles [place]eno, [place] [address] Social History Tobacco Use Types Packs/Day [...] Management Center Preauthorization Request Patient: Don Fatima [id number] Fax received from [facility] requesting we obtain prior authorization for Lidocaine patches prescribed by Barbra Soares APRN. RX insurance plan: [employer] RX insurance telephone: [phone] Patient Diagnosis: right foot pain secondary to PVD and ischemia Previous medications attempted: Tylenol, Tramadol, Dilaudid The following action was taken after discussion with the logistics service representative: _x_ pharmacy informed Authorized dosage or amount: 5% on patch on for 12 hours, then remove for 12 hours. Angeles Rodrigez, RN documented in this encounter Plan of Treatment Upcoming Encounters Date Type Specialty Care Team Description 05/28/2022 Appointment Cardiology Zulma Dolan MD [facility] [place], [place] [address] (Wo rk) 05/28/2022 Laboratory Appointment Lab 05/28/2022 Office Visit Cardiology Zulma Dolan MD [facility] [place] [address] Liz Poole PA [facility] [place] [address] 06/10/2022 Office Visit Dermatology aLura Scherer MD [facility] [address] [place], [place] [address] (Wo rk) documented as of this encounter Visit Diagnoses Not on filedocumented in this encounter Care Teams Foreign Car Mechanic Relationship Specialty Start Date End Date Lovely Vicente MD PCP - General 04/16/[address] [place] [address] documented as of this encounter
--- OUTSIDE RECORDS SUMMARY | 2022-04-22 08:22 | XMS_ITS | Encounter Summary ---
:1945 [place] [address] Care Team Providers Name Role Phone Lovely Vicente MD Primary Care Provider Reason for Visit Reason Onset Date Comments Questions 07/16/2017 fluid retention Encounter Details Date Type Department Care Team Description 07/16/2017 Telephone Cardiology at [facility] Martha Comer, Questions ([facility] RN retention ) [place] [address] Social History Tobacco Use Types Packs/Day [...] the direct number to the HF team ([phone]). She is aware of his appt with [facility] on 07/21/17 and the need for labs prior to that visit. verbalized good understanding of the current POC. documented in this encounter Plan of Treatment Upcoming Encounters Date Type Specialty Care Team Description 05/28/2022 Appointment Cardiology Zulma Dolan MD [facility] [address] [place] [address] (Wo rk) 05/28/2022 Laboratory Appointment Lab 05/28/2022 Office Visit Cardiology Zulma Dolan MD [facility] [place] [address] Liz Poole PA [facility] [place] [address] 06/10/2022 Office Visit Dermatology Laura Scherer MD [facility] [address] [place], [place] [address] (Wo rk) documented as of this encounter Visit Diagnoses Not on filedocumented in this encounter Care Teams Machine Plug Shaper Relationship Specialty Start Date End Date Lovely Vicente MD PCP - General 04/16/[address] [place] [address] documented as of this encounter
--- OUTSIDE RECORDS SUMMARY | 2022-04-22 08:22 | XMS_ITS | Encounter Summary ---
:1945 Author Organization [facility] [place] [address] Care Team Providers Name Role Phone Lovely Vicente MD Primary Care Provider Encounter Details Date Type Department Care Team Description 07/29/2017 Transcribe Orders Laboratory Lovely Vicente MD [address] [address] [place] [address] [phone] (Wo rk) Social History Tobacco Use Types [...] [facility] er [address] [place] [address] (Wo rk) 05/28/2022 Laboratory Appointment Lab 05/28/2022 Office Visit Cardiology Zulma Dolan MD [facility] [place] [address] Liz Poole PA [facility] [place] [address] 06/10/2022 Office Visit Dermatology Laura Scherer MD [facility] ER DR [address] [place], [place] [address] (Wo rk) documented as of this encounter Visit Diagnoses Not on filedocumented in this encounter Care Teams Steel Fabricator Relationship Specialty Start Date End Date Lovely Vicente MD PCP - General 04/16/[address] [place] [address] documented as of this encounter
--- OUTSIDE RECORDS SUMMARY | 2022-04-22 08:22 | XMS_ITS | Encounter Summary ---
:1945 Author Organization [facility] [place] [address] Care Team Providers Name Role Phone Lovely Vicente MD Primary Care Provider Reason for Visit Reason Onset Date Comments Other 07/22/2017 lovenox bridge Encounter Details Date Type Department Care Team Description 07/22/2017 Telephone Cardiology [place] [facility] Cadena RN Other (lovenox bridge) [place] [address] Social History Tobacco Use Types Packs/Day [...] 4:49 PM EST VAMSI Del Castillo, at [facility], called earlier today with a question re: lovenox bridge for this patient who was recently discharged [facility] [place]/t a blood clot. Discharge note faxed to [facility] (fax# [phone], Ph#: [phone]) which contains instructions r/t lovenox bridge as follows: Anticoagulation: on lovenox bridge to therapeutic coumadin for AFib. Goal INR 2-3. At discharge INR=1.5. The lovenox injections can stop when INR >2, coumadin will continue indefinitely. documented in this encounter Plan of Treatment Upcoming Encounters Date Type Specialty Care Team Description 05/28/2022 Appointment Cardiology Zulma Dolan MD [facility] [place], [place] [address] (Wo rk) 05/28/2022 Laboratory Appointment Lab 05/28/2022 Office Visit Cardiology Zulma Dolan MD [facility] [place] [address] Liz Poole PA [facility] [place] [address] 06/10/2022 Office Visit Dermatology Laura Scherer MD [facility] [address] [place], [place] [address] (Wo rk) documented as of this encounter Visit Diagnoses Not on filedocumented in this encounter Care Teams Attendant [facility] Relationship Specialty Start Date End Date Lovely Vicente MD PCP - General 04/16/15 [facility] [address] [place] [address] documented as of this encounter
--- OUTSIDE RECORDS SUMMARY | 2022-04-22 08:22 | XMS_ITS | Encounter Summary ---
:1945 Author Organization [facility] [place] [address] Care Team Providers Name Role Phone Lovely Vicente MD Primary Care Provider Encounter Details Date Type Department Care Team Description 08/03/2017 Telephone Pain Management at [place], [place] [address] Social History Tobacco Use Types Packs/Day [...] Management Center Preauthorization Request Patient: Don Fatima [id number] Fax received from [facility] requesting we obtain prior authorization for Lidocaine Patches prescribed by Barbra Soares APRN. RX insurance plan: [facility] insurance telephone: [phone] Patient ?? Diagnosis: right foot pain secondary to PVD and ischemia ?? Previous medications attempted: Tylenol, Tramadol, Dilaudid Authorization/Reference number: [id number], PBP Code 801 _x_ denied, provider and patient informed _x_ appeal initiated by provider, patient informed Angeles Rodrigez, RN documented in this encounter Plan of Treatment Upcoming Encounters Date Type Specialty Care Team Description 05/28/2022 Appointment Cardiology Zulma Dolan MD [facility] [place], [place] [address] (Wo rk) 05/28/2022 Laboratory Appointment Lab 05/28/2022 Office Visit Cardiology Zulma Dolan MD [facility] [place] [address] Liz Poole PA [facility] [place] [address] 06/10/2022 Office Visit Dermatology Laura Scherer MD [facility] [address] [place], [place] [address] (Wo rk) documented as of this encounter Visit Diagnoses Not on filedocumented in this encounter Care Teams Forklift Technician Relationship Specialty Start Date End Date Lovely Vicente MD PCP - General 04/16/[address] [place] [address] documented as of this encounter
--- OUTSIDE RECORDS SUMMARY | 2022-04-22 08:22 | XMS_ITS | Encounter Summary ---
:1945 Author Organization [facility] Address [facility] [place] [address] Care Team Providers Name Role Phone Lovely Vicente MD Primary Care Provider Encounter Details Date Type Department Care Team Description 07/29/2017 Transcribe Orders Laboratory Lovely Vicente, Coronary artery rupture; [facility] Medical Ischemic cardiomyopathy; 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, unspecified [facility] insulin use status [phone] [id number] Social History Tobacco Use Types Packs/Day Years [...] MD [facility] [place], [place] [address] (Wo rk) 05/28/2022 Laboratory Appointment Lab 05/28/2022 Office Visit Cardiology Zulma Dolan MD [facility] [place] [address] Liz Poole PA [facility] [place] [address] 06/10/2022 Office Visit Dermatology Laura Scherer MD [facility] ER [address] [place], [place] [address] (Wo rk) Scheduled Orders Name Type Priority Associated Diagnoses Order S chedule Lab Use Only, Fax Lab Routine Coronary arter y rupture Expected: 07/29/2017 Request Ischemic cardiom yopathy (Approximate), Atherosclerosis of makah Ex jose: 07/29/2018 coronary artery, angina presence unspecified, unspecified whether makah or transplanted heart Essential hypertension, malignant documented as of this encounter Results Uric acid (08/04/2017 12:55 PM EST) P athologist Signature Uric Acid 7.1 3.5 - 8.5 [facility] mg/dL [facility] Specimen Anatomical Collection Method Collection Time Receive d Time (Source) Location / / Volume Laterality Blood specimen 08/04/2017 12:55 8 1:01 (specimen) PM EST PM EST Resulting Agency Comment Spec In Lab Lovely Vicente MD CHEMISTRY ORDERABLES Performing Organization Address City/State/[place] [address] (ABNORMAL) Hemogram (08/04/2017 12:55 PM EST) Analysis Performed At Patho logist Time Signature WBC 15.8 (H) 4.0 - 9.5 [facility] x10(3)/[facility] LABORATORY RBC 3.48 (L) 4.58 - [facility] 5.54 [facility] x10(6)/[facility] LABORATORY Hemoglobin 9.9 (L) 13.7 - [facility] 16.5 gm/dL [facility] Hematocrit 31.4 (L) 40.5 - [facility]IS 48.5 % [facility] MCV 90.2 82.9 - [facility] 93.1 [facility] LABORATORY MCH 28.4 27.5 - [place] RYAN 32.1 pg [facility] MCHC 31.5 (L) 32.0 - [facility] ZHAORYAN 35.7 gm/dL [facility] Platelets 310 145 - 357 [facility] x10(3)/[facility] LABORATORY RDWSD 51.8 (H) 36.0 - [place] RYAN 45.0 [facility] LABORATORY RDWCV 15.8 (H) 11.4 - [facility] 13.8 % [facility] MPV 8.9 7.6 - 12.9 [facility] LABORATORY nRBC % Auto 0.0 % [facility] LABORATORY nRBC Abs Auto 0.000 0.000 - [facility] 0.000 [facility] x10(3)/[facility] LABORATORY Specimen Anatomical Collection Method Collection Time Receive d Time (Source) Location / / Volume Laterality Blood specimen 08/04/2017 12:55 8 1:01 (specimen) PM EST PM EST Resulting Agency Comment Spec In Lab Lovely Vicente MD HEMATOLOGY ORDERABLES Performing Organization Address City/State/ZIP Code Phon e Number [place] [id number] (ABNORMAL) Comprehensive metabolic panel (non-fasting) (08/04/2017 12:55 PM EST) P athologist Signature Glucose Lvl 208 (H) 65 - 199 [facility] mg/dL [facility] Comment: [...] LABORATORY Albumin 3.4 3.2 - 5.2 gm/dL [facility] AST 20 0 - 39 unit/L [facility] LABOR[facility]ORY ALT 21 0 - 55 unit/L [facility] LABORATORY Alk Phos 93 40 - 120 unit/L [facility] Total Bilirubin 0.4 0.2 - 1.3 mg/dL [facility] Estimated GFR 43 (L) >=60 [facility] Comment: The reported eGFR should be multiplied b y 1.2 for patients. The MDRD is not an appropriate measure o f renal function for patients with body mass extremes or in patients with acute kidney failure. http://[employer]/DHnkdep http://[employer]/DHMCnkf Specimen Anatomical Collection Method Collection Time Receive d Time (Source) Location / / Volume Laterality Blood specimen 08/04/2017 12:55 8 1:01 (specimen) PM EST PM EST Resulting Agency Comment Spec In Lab Lovely Vicente MD CHEMISTRY ORDERABLES Performing Organization Address City/State/[place] [address] (ABNORMAL) Hemoglobin A1c (08/04/2017 [...] Avg Gluc See note mg/dL [facility]ORY Comment: Estimated Average Glucose [...] into estimated average glucose values. ??Diabetes Care 2008:31(8):5816-7074. Specimen Anatomical Collection Method Collection Time Receive d Time (Source) Location / / Volume Laterality Blood specimen 08/04/2017 12:55 8 1:01 (specimen) PM EST PM EST Resulting Agency Comment Spec In Lab Lovely Vicente MD CHEMISTRY ORDERABLES Performing Organization Address City/State/[place] [address] (ABNORMAL) Prothrombin Time (08/04/2017 12:55 PM EST) P athologist Signature PT 35.4 (H) 11.8 - 14.0 [facility] LABORATORY INR 3.5 (H) 0.9 - 1.1 [facility] [...] City/State/[place] [address] documented in this encounter Visit Diagnoses Diagnosis Coronary artery rupture Acute myocardial infarction, unspecified site, episode of care unspecified Ischemic cardiomyopathy Other specified forms of chronic ischemi c heart disease Atherosclerosis of makah coronary arter y, angina presence unspecified, unspecified whether makah or transplanted heart Essential hypertension, malignant Diabetes mellitus due to underlying cond ition with diabetic nephropathy, unspecified [facility] insulin use status documented in this encounter Care Teams Hydraulic Lift Driver Relationship Specialty Start Date End Date Lovely Vciente MD PCP - General 04/16/[address] [place] [address] documented as of this encounter
--- OUTSIDE RECORDS SUMMARY | 2022-04-22 08:22 | XMS_ITS | Encounter Summary ---
:1945 Author Organization [place] [address] Care Team Providers Name Role Phone Lovely Vicente MD Primary Care Provider Encounter Details Date Type Department Care Team Description 07/24/2017 Telephone Vascular Surgery Melba Bob [facility] [place] [address] [facility] [phone] VASCULAR SURGERY [place], [place] [address] (Wo rk) Social History Tobacco [...] was discharged on Coumadin. ??He presented to [facility] on 07/20 with mottled toes on the [...] Dolan MD [facility] [address] [place] [address] (Wo rk) 05/28/2022 Laboratory Appointment Lab 05/28/2022 Office Visit Cardiology Zulma Dolan MD [facility] [place] [address] Liz Poole PA [facility] [place] [address] 06/10/2022 Office Visit Dermatology Laura Scherer MD [facility] [address] [place], [place] [address] (Wo rk) documented as of this encounter Visit Diagnoses Not on filedocumented in this encounter Care Teams Trust Manager Relationship Specialty Start Date End Date Lovely Vicente MD PCP - General 04/16/[address] [place] [address] documented as of this encounter
--- OUTSIDE RECORDS SUMMARY | 2022-04-22 08:22 | XMS_ITS | Encounter Summary ---
:1945 [place] [address] Care Team Providers Name Role Phone Lovely Vicente MD Primary Care Provider Encounter Details Date Type Department Care Team Description 07/29/2017 Telephone Pain Aurelia Crawford MD [facility] [place] [address] PAIN CLINIC [phone] [place], [place] [address] (Wo rk) Social History [...] EST Received call from ED physician Dr Ptahak regarding patient's severe right lower extremity pain [...] Dolan MD [facility] [address] [place], [place] [address] (Wo rk) 05/28/2022 Laboratory Appointment Lab 05/28/2022 Office Visit Cardiology Zulma Dolan MD [facility] [place] [address] Liz Poole PA [facility] [place] [address] 06/10/2022 Office Visit Dermatology Laura Scherer MD [facility] [address] [place], [place] [address] (Wo rk) documented as of this encounter Visit Diagnoses Not on filedocumented in this encounter Care Teams Furnace Installer Helper Relationship Specialty Start Date End Date Lovely Vicente MD PCP - General 04/16/[address] [place] [address] [address] [place] [address] documented as of this encounter
--- OUTSIDE RECORDS SUMMARY | 2022-04-22 08:22 | XMS_ITS | Encounter Summary ---
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 [...] H[facility]PITAL [facility] MAIN OR ??? 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 Hank Zhang Vascular Surgery, PGY2 Pager #[phone] Associated attestation - Arik Clement MD - [...] Appointment Cardiology Zulma Dolan MD [facility] [place], [place] [address] (Wo rk) 05/28/2022 Laboratory Appointment Lab 05/28/2022 Office Visit Cardiology Zulma Dolan MD [facility] [place] [address] Liz Poole PA [facility] [place] [address] 06/10/2022 Office Visit Dermatology Laura Scherer MD [facility] [address] [place], [place] [address] (Wo rk) documented as [...] Department: Vascular Surgery Lab VASCUBASE Report Patient: [id number] (GREGORY FATIMA) CPT: 55488 ICD10: I82.541 Referring Physician: TAMIKO JIMÉNEZ ?? [...] Signature POC Glucose 128 65 - 199 [facility] mg/dL [facility] LABORATORY Comment: [...] Address City/State/ZIP Code Phon e Number [address] (ABNORMAL) D-Dimer, Quantitative (07/29/2017 2:15 PM EST) [facility] Famigo Method Time Signature D-Dimer, Quant 1,699 (H) 0 - 500 [facility] FEU ng/ml [facility] Comment: The D-Dimer assay [...] Organization Address City/State/[place] [address] (ABNORMAL) Differential, Automated (07/29/2017 2:15 PM EST) [facility] Famigo Method Time Signature Neutrophils % 82.5 % [facility] LABORATORY Neutr Abs (ANC) 10.21 (H) 1.70 - [facility] 6.10 [facility] x10(3)/[facility] LABORATORY Lymphocytes % 7.1 % [facility] LABORATORY Lymphocytes Abs 0.9 0.9 - 3.2 [facility] x10(3)/[facility] LABORATORY Monocytes % 6.5 % [facility] LABORATORY Monocyte Abs 0.8 0.3 - 0.9 [facility] x10(3)/[facility] LABORATORY Eosinophils % 2.7 % [facility] LABORATORY Eosinophils Abs 0.3 0.0 - 0.4 [facility] x10(3)/[facility] LABORATORY Basophils % 0.6 % [facility] LABORATORY Basophils Abs 0.1 0.0 - 0.1 [facility] x10(3)/[facility] LABORATORY Immature [...] Organization Address City/State/[place] [address] (ABNORMAL) Hemogram (07/29/2017 2:15 PM EST) Analysis Performed At Patho logist Time Signature WBC 12.4 (H) 4.0 - 9.5 [facility] x10(3)/[facility] LABORATORY RBC 4.17 (L) 4.58 - [facility] 5.54 [facility] x10(6)/[facility] LABORATORY Hemoglobin 12.1 (L) 13.7 - [facility] 16.5 gm/dL [facility] LABORATORY Hematocrit 38.1 (L) 40.5 - [facility] 48.5 % [facility] LABORATORY MCV 91.4 82.9 - [facility] 93.1 [facility] LABORATORY MCH 29.0 27.5 - [facility] 32.1 pg [facility] LABORATORY MCHC 31.8 (L) 32.0 - [facility] RYAN 35.7 gm/dL [facility] LABORATORY Platelets 204 145 - 357 [facility] x10(3)/[facility] LABORATORY RDWSD 50.5 (H) 36.0 - [facility] 45.0 [facility] LABORATORY RDWCV 15.3 (H) 11.4 - [facility] RYAN 13.8 % [facility] LABORATORY MPV 9.4 7.6 - 12.9 [facility] LABORATORY nRBC % Auto 0.0 % [facility] LABORATORY nRBC Abs Auto 0.000 0.000 - [facility] 0.000 [facility] x10(3)/[facility] LABORATORY Specimen Anatomical Collection Method Collection Time Receive d Time (Source) Location / / Volume Laterality Blood specimen 07/29/2017 2:15 PM 018 2:36 (specimen) EST PM EST Resulting Agency Comment Spec In Lab Tamiko Jiménez MD HEMATOLOGY ORDERABLES Performing Organization Address City/State/[place] [address] (ABNORMAL) Prothrombin Time (07/29/2017 2:15 PM EST) P athologist Signature PT 24.4 (H) 11.8 - 14.0 [facility] LABORATORY INR 2.2 (H) 0.9 - [...] Organization Address City/State/ZIP Code Phon e Number [place] [id number] LAB[address] Arterial Duplex Leg, Unil (07/29/2017 11:50 AM EST) Component Value Ref Test Analysis Performed At [facility] Range Method Time Signature VB Text Department: Vascular Surgery Lab VASCUBASE Report Patient: [id number] (GREGORY FATIMA) CPT: 87136 ICD10: Z09;I97.610 Referring Physician: TAMIKO JIMÉNEZ ?? [...] Department: Vascular Surgery Lab VASCUBASE Report Patient: [id number] (GREGORY FATIMA) CPT: 39401 ICD10: I82.441 Referring Physician: TAMIKO JIMÉNEZ ?? [...] he calf. Notification: Marquis Pathak MD (pager #[phone]) was notif ied of the preliminary findings. [...] STAT documented in this encounter Care Teams Nuclear Physics Professor Relationship Specialty Start Date End Date Lovely Vicente MD PCP - General 04/16/[address] [place] [address] [address] [place] [address] documented as of this encounter
--- OUTSIDE RECORDS SUMMARY | 2022-04-22 08:23 | XMS_ITS | Encounter Summary ---
:1945 Author Organization [facility] [place] [address] Care Team Providers Name Role Phone Lovely Vicente MD Primary Care Provider Reason for Referral Consultation (Routine) - Closed Specialty Diagnoses / Referred By Contact Referred To Contact Procedures Cardiac Rehabilitation Diagnoses S/P CABG x 3 Yuan Webber, Cardiac Rehab, [address] [place] CARDIOTHORACIC [address] [place] [address] Referral ID Status Reason Start Date Expiration Date Visits V isits Requested Authorized [id number] Closed Consult, 07/14/2017 01/10/2018 36 36 Test & Treat Reason for Visit Auth/Cert Specialty Diagnoses / Procedures Referred By Contact Refer red To Contact Diagnoses STEMI (ST elevation myocardial infarction) NSTEMI STEMI Procedures CARDIAC CATHETERIZATION NAYE IPI Referral ID Status Reason Start Date Expiration Date Visits Requ ested Visits Authorized [id number] 1 1 Encounter Details Date Type Department Care Team Description 07/05/2017 - Hospital Encounter Cardiac Special Daphne Shahid MD [facility] [address] Non-ST elevation myocardial infarction ( NSTEMI); 07/14/2017 Care Unit Yuan Preciado MD [facility] [place] [address] S/P [place]G x 3 [place] [id number] Social History Tobacco Use Types Packs/Day Years [...] Patient Age: 72 y.o. Birthdate: 1945 Language: Ukrainian Race: White Ethnicity: Not nor Admit Date: [...] @ 1:20p Patient to follow-up with Assistant Purchasing Manager/heart failure team in one week. An appointment will be made for you. You may call [phone] Patient to follow-up with Cardiac Surgery, Dr. Yuan Webber, in ~ 4 weeks with CXR, EKG. Inpatient Provider Contact Information: [facility] Section of Cardiac Surgery [facility] [place] [address] FAX [phone] Discharge Diagnoses (Hospital Problems) Primary Diagnoses: CAD [...] 33.75) performed by Yuan Webber MD at [facility] MAIN OR ??? PRO CABG, ARTERY-VEIN, TWO N/A 07/07/2017 @CABG, TWO VENOUS GRAFTS & ARTERIAL GRAFT (WRVU 7.93) performed by Yuan Webber MD at [facility] MAIN OR ??? PRO COLONOSCOPY, REMV LESN, SNARE 01/16/2014 COLONOSCOPY, POLYPECTOMY, REMOVAL LESION BY SNARE performed by Nohemi Jaimes MD at [facility] ENDOSCOPY ??? PRO ENDOSCOPY W/VIDEO-ASST VEIN HARVEST, CABG Right 07/07/2017 ENDOSCOPIC HARVEST VEIN(S) FOR CABG (WRVU 0.31) performed by Yuan Webber MD at [facility] MAIN OR ??? PRO THYROIDECTOMY 03/28/2013 THYROIDECTOMY, TOTAL OR COMPLETE performed by Manny Mcknight MD at [facility] MAIN OR Prior To Admission Medications Prescriptions Prior to Admission Medication Sig Dispense Refill Last Dose ??? levothyroxine (SYNTHROID) 175 mcg Tablet Take 1 tablet by mouth daily. 90 tablet 3 07/05/2017 [id number] ??? ascorbic acid, vitamin C, (VITAMIN C) [...] Gregory Hoang was admitted to [facility] on 07/05/2017 via the Cardiology Service. [...] not take or discontinue any prescription or lccu-jmi-zpjzjuy medications without asking your doctor or pharmacist [...] day to have your insulin doses adjusted. [facility] Endocrine clinic office Discharge Instructions: Call your doctor if: You have a fever of greater than 101 degrees, shaking chills, if you develop redness or drainage from your incision sites, or if you have questions. Please call your surgeon's office if you have any discharge or drainage from your chest incision. Your surgeon, Dr. Yuan Webber and/or the Cardiac Surgery Physician Sap Data Analyst Team may be reached at . [...] Dr. Yuan Webber. You may use a [place] Track or treadmill but avoid any pulling [...] friends, go to a movie, go to anglican, etc. Heavy activities: No hunting, skiing, jogging, snow shoveling, snowmobiling, lawn mowing, swimming, golf or tennis until after your return appointment with the surgeon. Do not ride motorcycles, UClass's tractors or horses. Avoid the use of [...] should resume a low fat, low cholesterol, [place] Heart Association Diet/Diabetic diet. Driving: No driving [...] @ 1:20p Patient to follow-up with Assistant Purchasing Manager/heart failure team in one week. Appointment will be made for you. You may call [phone] Patient to follow-up with Cardiac Surgery, Dr. Yuan Webber, in ~ 4 weeks with CXR, EKG. Cardiac Rehabilitation: Gregory Hoang was seen today regarding participation in the outpatient Phase 2 Cardiac Rehabilitation at [facility]. The patient agrees to a referral to this program. The referral will be sent at discharge and the patient should be contacted by the Program within 1- 2 weeks from discharge. ?? Future Appointments and Orders Future Appointments Provider Department Dept Phone 09/07/2017 3:00 PM LAB, THREE L Lab 3L [facility] [phone] 09/07/2017 4:00 PM Luz Prescott MD Endocrinology at [facility] [phone] Future Orders Complete By Expires EKG 12 Lead [EKG1 Custom] 08/14/2017 02/13/2018 Process Instructions: Scheduling Instructions: Questions: Which location will this be performed?: [facility] Is a rhythm strip needed?: No If EKG Reason is Pre-op Evaluation, indicate diagnosis for surgery.: XR Chest PA & Lateral (Generic) [[id number] Custom] 08/14/2017 02/13/2018 Process Instructions: Scheduling Instructions: Questions: Where will study be performed?: [facility] Portable exam?: Reason for exam and clinical history: CABG x 3 Other pertinent information: Stat read required?: Date of injury if applicable: Requested Time: Referral to Cardiac Rehab [WIX595 Custom] As directed Process Instructions: If no progress note charted, please enter Clinical details in comments. Scheduling Instructions: Questions: My question or request is: s/p CABG. Cardiac rehab at [facility] Referral to Home Health - at DISCHARGE [MQA0672 CPT(R)] As directed Process Instructions: Scheduling Instructions: Comments: DOCUMENTATION FOR VNA SERVICES (INCLUDING THOSE PATIENTS WITH MEDICARE COVERAGE REQUIRING HOME VNA SERVICES AND/OR HOSPICE SERVICES) PATIENT'S LOCATION: Gregory Hoang [address] [place] [address] [place] [phone] (home) Telephone Information: Physical Therapist Aide's Name: self In discussion with the attending physician, it is certified that this patient is under their care and that they, or a Nurse Practitioner, or Physician Sap Data Analyst who is working directly with them, [...] [facility] ([facility] [place] [employer]-[place] in [place] PHONE: [phone] FAX: [phone] RN orders: Cardiopulmonary assessment, incisional assessment, assess vital signs, assessment of rehab progress, medication management and effectiveness, home safety evaluation. Please draw INR if indicated and send result to:Dr Vicente [phone] PT ORDERS: Continue rehab for endurance, gait stability and strength with mobility and transfers. Home safety evaluation. Home exercise program if appropriate. Start of Care Date:24-48 hours after discharge SPECIAL INSTRUCTIONS: For any follow up questions, needs, or issues please call the Cardiac Surgery Office at [phone] FOR MEDICARE ONLY: (please delete this section [...] OR AFTER 07/17/2017 Signed: Martha Teague APRN [facility] Section of Cardiac Surgery [facility] [place] [phone] FAX [phone] Date: 07/14/2017 CC: MD Ivania Cr Betsy, PA [address] [place] [phone] documented in this encounter Discharge Instructions Discharge [...] day to have your insulin doses adjusted. [facility] Endocrine clinic office Patient InstructionsStMartha mcdonald APRN [...] not take or discontinue any prescription or wtnr-lzq-dxtiaov medications without asking your doctor or pharmacist [...] juice or regular (not diet) soda 6 [employer] small box of raisins 4 glucose tablets [...] day to have your insulin doses adjusted. [facility] Endocrine clinic office ? Discharge Instructions: ?? Call your doctor if: You have a fever of greater than 101 degrees, shaking chills, if you develop redness or drainage from your incision sites, or if you have questions. Please call your surgeon's office if you have any discharge or drainage from your chest incision. Your surgeon, Dr. Yuan Webber and/or the Cardiac Surgery Physician Sap Data Analyst Team may be reached at . [...] Dr. Yuan Webber. You may use a [place] Track or treadmill but avoid any pulling [...] friends, go to a movie, go to anglican, etc. ?? Heavy activities: No hunting, skiing, jogging, snow shoveling, snowmobiling, lawn mowing, swimming, golf or tennis until after your return appointment with the surgeon. Do not ride motorcycles, UClass'Avisena tractors or horses. Avoid the use of [...] should resume a low fat, low cholesterol, [place] Heart Association Diet/Diabetic diet. ?? Driving: No [...] 1:20p ?? Patient to follow-up with Assistant Purchasing Manager/heart failure team in one week. An appointment has been made for you, you can call [phone] ?? Patient to follow-up with Cardiac Surgery, Dr. Yuan Webber, in ~ 4 weeks with CXR, EKG. ? Cardiac Rehabilitation: Gregory Hoang??was seen today regarding participation in the outpatient Phase 2 Cardiac Rehabilitation at [facility]. ?? The patient agrees to a referral to this program.? The referral will be sent at discharge and the patient should be contacted by the Program within 1- 2 weeks from discharge. ? Future Appointments and Orders Future Appointments Provider Department Dept Phone ?? 09/07/2017 3:00 PM LAB, THREE L Lab 3L [facility] [phone] ?? 09/07/2017 4:00 PM Luz Prescott MD Endocrinology at [facility] [phone] Future Orders Complete By Expires ?? EKG 12 Lead [EKG1 Custom] 08/14/2017 02/13/2018 ?? Process Instructions: ? Scheduling Instructions: ? Questions: ? Which location will this be performed?: [facility] ?? Is a rhythm strip needed?: No ?? If EKG Reason is Pre-op Evaluation, indicate diagnosis for surgery.: ?? XR Chest PA & Lateral (Generic) [[id number] Custom] 08/14/2017 02/13/2018 ?? Process Instructions: ? Scheduling Instructions: ? Questions: ? Where will study be performed?: [facility] ?? Portable exam?: ?? Reason for exam and clinical history: CABG x 3 ?? Other pertinent information: ?? Stat read required?: ?? Date of injury if applicable: ?? Requested Time: ?? Referral to Cardiac Rehab [HPL544 Custom] As directed ? Process Instructions: ?? If no progress note charted, please enter Clinical details in comments. ?? Scheduling Instructions: ? Questions: ? My question or request is: s/p CABG. Cardiac rehab at [facility] ? Arrangements for VNA/home care: As above. [...] referrals are placed. Patient requests referral to [facility] PHONE: [phone] FAX: [phone] Expected date of discharge: 07/14 Referral routed to the Employment Recruiter for matching with agency/vendor and to provide [...] day to have your insulin doses adjusted. [facility] Endocrine clinic office Kathie Carrera APRN [facility] Endocrinology Diabetes Management Pager [phone] minutes of this 35 minute visit [...] [facility] ([facility] [place] [employer] in [place] PHONE: [phone] FAX: [phone]. Expected date of discharge: 07/14/17 Referral routed to the Employment Recruiter for matching with agency/vendor and to provide [...] hours. If BG remains greater than 240, suffrv78 units (no more than three times) &??call [...] needed as he recovers. Will ask JENSEN aCllahan to see prior to discharge. PLAN Lantus:50 units daily Lispro 1:8 insulin to carbohydrate ratio Lispro for correction q 4 hours using CF20 sliding scale Will continue to follow Katerin Azul APRN [facility] Endocrinology Diabetes Management Pager [phone] minutes of this 25 minute visit [...] of infiltration/extravasation Discussed plan of care with RIVET MAKER and RN. Elevate exrtemity and apply intermittent Warm compresses. Name of MD contacted Dr. Shaw Brown 07/13/2017 @ 0633 Name of RN contacted Ale Rangel RN Name of Pharmacist if consulted NA Name of Plastics MD ( if consulted) NA (Mandatory photo for infiltrations/ extravasations scoring a stage 2 or greater, but recommended forstage 1)( include measuring tape and identifier in the photo) DATA WAREHOUSE ADMINISTRATOR CARING FOR THIS PATIENT WILL CONTINUE [...] measuring tape and identifier in the photo) DATA WAREHOUSE ADMINISTRATOR CARING FOR THIS PATIENT WILL CONTINUE [...] regard to both infiltrates addressed by this brief writer.All of Mr. Hoang's responses were entirely appropriate. Images of infiltrates attached here. Martha Sharp APRN - 07/13/2017 8:01 AM EST Cardiac Surgery Progress Note: ID: [id number] 72 year old male POD#6 s/p CABGx3 [...] discharge planning needs. I have provided the [facility], Office of Care Management letter from the Physical Therapy Aide pertaining to rehab referrals. I have also provided a letter describing our affiliations within the [facility] and educated them about their right [...] date of discharge: 07/14 Note routed to Employment Recruiter who will communicate referrals to facilities and [...] hours. If BG remains greater than 240, yejorp83 units (no more than three times) & call for new basal insulin orders. ??If less than 240 after two hours, give no insulin and resume prior schedule. Will continue to follow Katerin Patel. STACIE Azul [facility] Endocrinology Diabetes Management Pager [phone] 20 minutes of this 35 minute visit was spent with the patient in counseling on diabetes and treatment plan, reviewing all glucose and insulin data as well as relevant laboratory results with the patient, and coordination of care on the inpatient unit including nursing and primary team. Makayla Stevenson APRN - 07/12/2017 9:52 AM EST Cardiac Surgery Progress Note: ID: [id number] 72 year old male POD#5 s/p CABGx3 [...] 07/11/2017 7:18 PM EST Patient arrived from [facility]. VSS. MSI dressing pulled off [...] AM EST Cardiac Surgery Progress Note: ID: [id number] 72 year old male POD#4 s/p CABGx3 [...] hours. If BG remains greater than 240, [id number] units (no more than three times) & [...] AM EST Cardiac Surgery Progress Note: ID: [id number] 72 year old male POD#3 s/p CABGx3 [...] Gas) No results found for: PHART, PO2ART, MLZ0SCB Assessment/Plan: 72 year old male POD#3 s/p [...] Encounter Note Patient Name: Gregory Hoang : [id number] MR#: [id number] Admit Date: 07/05/2017 4:20 PM Hospital Day 4 days Narrative: Patient was sitting in chair, hugging heart pillow, opened his eyes, nodding to come into room Assessment: Patient was sleepy. Intervention and Outcome: Introduced application technician services and patient reached his hand out in appreciation. Follow-up: Senior Microstrategy Developer remains available for support. Time in Direct [...] 10:45 AM EST Report given to staff analyst to cover care Maddison Cee PA - 07/09/2017 9:00 AM EST Cardiac Surgery Progress Note: ID: [id number] 72 year old male POD#2 s/p CABGx3 [...] on rounds. Signed: STEPHANIE Iqbal [facility] Section of Cardiac Surgery Date: 07/09/2017 Magnolia Santiago [facility] - 07/09/2017 1:[address] ICU [...] when IABP d/c'ed. Gretchen Carolina, PT Pager [phone] Maddison Cee PA - 07/08/2017 11:27 AM EST Cardiac Surgery Progress Note: ID: [id number] 72 year old male POD#1 s/p CABGx3 [...] on rounds. Signed: STEPHANIE Iqbal [facility] Section of Cardiac Surgery Date: 07/08/2017 [...] unit. NICK SEGAL MD 07/08/2017 Jay Munoz [facility] - 07/08/2017 4:[address] Surgery [...] in place in R femoral. No hematoma. BOTTOM WORKER- Intact Psych- Anxious Skin- Dry, no [...] intact. IABP in place in R femoral. BOTTOM WORKER- Intact Psych- Anxious Skin- Dry, no [...] note for details. DAPHNE SHAHID MD Pager [phone] Jet Mckenna MD - 07/05/2017 6:48 PM EST Preliminary Cardiac Catheterization Procedure Note: Procedure(s) performed: Left heart cath, IABP insertion Access: Right BOX SHOOK PATCHER-->8fr IABP A time-out was conducted prior to [...] Shahid MD PCP: Lovely Vicente MD PCP#: [phone] Patient Active Problem List Diagnosis Code ??? [...] manager cardiac cath urgently for ongoing STEMI. [facility] Labs: INR 1.0 WBC 5.88 Hgb 12.9 [...] - ISS - hold metformin - f/u [facility] #Home Meds - continue levothyroxine 175mcg - CPAP at night # Routine - DVT PPx: heparin drip - Diet: NPO - Code Status: FULL - Dispo: [facility] Cedric Bey MD Internal Medicine, PGY-2 Cardiology S1, Team Pager # [phone] CARDIOLOGY ATTENDING NOTE Patient: Gregory Hoang Date [...] amenable for PCI. DAPHNE SHAHID MD Pager [phone] documented in this encounter Miscellaneous Notes Consult Note - Daphne Shahid MD - 07/14/2017 11:46 AM EST Heart Failure Service Inpatient Consult Note Gregory Hoang Date of : 1945 Age: 72 y.o. Today's date: 07/14/17 PCP: Lovely Vicente MD PLANTING SUPERVISOR: None Place of Service[place] [facility] Reason for Consult: Dr. Webber has requested [...] 33.75) performed by Yuan Webber MD at [facility] MAIN OR ??? PRO CABG, ARTERY-VEIN, TWO N/A 07/07/2017 @CABG, TWO VENOUS GRAFTS & ARTERIAL GRAFT (WRVU 7.93) performed by Yuan Webber MD at [facility] MAIN OR ??? PRO COLONOSCOPY, REMV LESN, SNARE 01/16/2014 COLONOSCOPY, POLYPECTOMY, REMOVAL LESION BY SNARE performed by Nohemi Jaimes MD at [facility] ENDOSCOPY ??? PRO ENDOSCOPY W/VIDEO-ASST VEIN HARVEST, CABG Right 07/07/2017 ENDOSCOPIC HARVEST VEIN(S) FOR CABG (WRVU 0.31) performed by Yuan Webber MD at [facility] MAIN OR ??? 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 The patient has been extubated, left chest tube removed, and [place]-Suzi catheter removed since the 07/07/2017 study. Atelectasis [...] was discussed with Zehra. Jaden Kelley MD [place] Pager [phone] CARDIOLOGY ATTENDING NOTE Patient: Gregory Hoang Date [...] heart failure clinic. DAPHNE SHAHID MD Pager [phone] Plan of Care - Alden Chavarria, DRILL RIG OPERATOR - 07/14/2017 11:35 AM EST Problem: [...] Discharge Disposition: home with assist Alden Chavarria, DRILL RIG OPERATOR Pager: [phone] Inpatient Physical Therapy Problem: Acute Rehab Services [...] sit/sit to supine -- Bed Mobility Goal, [place] Level supervision required -- Bed Mobility Goal, [...] - 3 days -- Gait Training Goal, [place] Level supervision required -- Gait Training Goal, [...] days -- Transfer Training Goal, Activity Type mmn-wb-wxoof/xcuqb-eh-hla;wik-yp-nqrzl/fxiqb-jc-qcr;toilet -- Transfer Train Goal, [place] Level supervision required -- Transfer Training Goal, [...] keeping present for 2 days per family. Telephone Sex Worker noted of frustrations, house keeping sent to room. Patient offered showered twice, refused. at bedside, frustrated that shower not complete, informed that patient had refused several times. requesting to see AIR CONDITIONING SERVICE TECHNICIAN, paged sent to Martha, will come to bedside (middle of consult). not willing to wait, Martha notified that family had gone home. Encouraged to come for morning rounds a t 8am. Diabetes team at bedside - insulin adjustments made. Call cabello in reach. Continue to monitor. PLAN MOVING FORWARD: Ambulate, dressing changes BID, Please change drsg at 4am per Martha AIR CONDITIONING SERVICE TECHNICIAN request. INDIVIDUALIZED FALL PREVENTION INTERVENTIONS: Patient-specific [...] levels on the lower side, 60ml of [place] juice given after a FS of 80. [...] 07/13/17 0502 Interdisciplinary Rounds/Family Conf Participants casework manager;dietitian/nutrition services;nursing;occupational therapy;patient;pharmacy;physical therapy;physician Plan of Care [...] Anticipated Discharge Disposition: home with assist Pager: [phone] CLARISSA SEGAL, PT 07/12/2017 Physical Therapy Rehabilitation [...] to sit/sit to supine Bed Mobility Goal, [place] Level supervision required Bed Mobility Goal, Additional Goal adheres to psternal precautions for transfer Goal: Gait Training Goal Stand Alone Therapy Goal Outcome: Ongoing (Interventions Implemented as Appropriate) 07/12/17 1225 Gait Training Goal Gait Training Goal, Date Established 07/12/17 Gait Training Goal, Time to Achieve 2 - 3 days Gait Training Goal, [place] Level supervision required Gait Training Goal, Assist [...] 3 days Transfer Training Goal, Activity Type wli-zl-cnxvp/idqfe-lz-gjx;nlw-tv-shemt/vcuvp-hc-feb;toilet Transfer Train Goal, [place] Level supervision required Transfer Training Goal, Additional Goal adheres to sternal precautions during transfer Consult Note - Octavia Vaughn RN - 07/12/2017 10:50 AM EST [facility] CARDIAC REHABILITATION Gregory Hoang was seen today regarding participation in the outpatient Phase 2 Cardiac Rehabilitation at [facility]. The patient agrees to a referral to [...] IV site, amio to other piv and MATERIAL LISTER at bedside to help assess, IV removed. [...] as Appropriate) 07/11/17199907/11/17200907/12/17 [facility] Daily Care Interventions Self-Care Promotion -- -- [...] staff, he stood and marched in place. [place] weak, wanting to sit back down. Remained [...] Outcome: Ongoing (Interventions Implemented as Appropriate) 07/05/17 7278 Mutuality/Individual Preferences What Anxieties, Fears or Concerns [...] Health/Prescription Coverage: Primary Insurance: MEDICARE Secondary Insurance: [employer] [place] Prescription Coverage: yes Preferred Pharmacy: [facility] [place] Other: none Primary Care Provider: Lovely Vicente MD [phone] Patient/Caregiver Goals of Treatment:live and get my breath back Potential Needs for Transition of Care: Rehab[facility]SNF: [facility]; [facility] Home Health: NA DME: TBD Dialysis: na Community Resources: available Transportation: yes Other: none Anticipated Barriers to Discharge/Special Considerations: none Plan: Likely SNF Rehab before home A member of the Care Management team will continue to monitor progress, follow for continuity of care and assist with transition of care planning. ERLIN Weiss Pager: [phone] Consult Note - Katerin Azul RN - [...] review of shelter diabetes care. Diabetes History: Gregory Hoang has [...] potential to d/c gtt and start CF. 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 Monitoring - continue BG tid ac & hs Diet - low fat/low carb diet Exercise - weight-bearing exercise 30 min/day, as tolerated Thank you for allowing us to provide care for your patient W/E coverage, Dr. Jeane Tatum, pager [phone] Katerin Patel. STACIE Azul Endocrinology Diabetes Management Pager [phone] Plan of Care - Stephanie Godoy RN [...] Webber MD - 07/07/2017 6:27 PM EST [facility] Operative Note Patient Name: Gregory Hoang : [id number] MR#: [id number] Case Date: 07/07/2017 Surgeon: Surgeon(s) and Role: * Yuan Webber MD - Primary * Michael Drake PA - Physician Sap Data Analyst * Linda Flores PA - Physician Sap Data Analyst Preoperative diagnosis: 3VD Postoperative diagnosis: CAD, [...] Operative Note Patient Name: Gregory Hoang : [id number] MR#: [id number] Case Date: 07/07/2017 Surgeon: Surgeon(s) and Role: * Yuan Webber MD - Primary * Michael Drake PA - Physician Sap Data Analyst * Linda Flores PA - Physician Sap Data Analyst Preoperative diagnosis: 3VD Postoperative diagnosis: CAD, [...] code status: Full Code Katty Davidjose, MS3 [facility] Cardiology S1 (Pager [phone]) Plan of Care - Emelia Ibarra RN [...] with other involved physicians Yuan Webber MD [phone] Med Student Progress Note - Katty Hahn [...] CVCC Katty Hahn, M3 [facility] Cardiology S1 (Pager [phone]) Plan of Care - Stephanie Godoy RN [...] Dolan MD [facility] [address] [place], [place] [address] (Wo lissa) 05/28/2022 Laboratory Appointment Lab 05/28/2022 Office Visit Cardiology Zulma Dolan MD [facility] [place] [address] Liz Poole PA [facility] [place] [address] 06/10/2022 Office Visit Dermatology Laura Scherer MD [facility] [address] [place] [place], [place] [address] (Wo rk) Scheduled Orders Name [...] procedure are i n the results section. MERCHANDISE SUPERVISOR SCAN 07/15/2017 12:00 Res ults for [...] Routine 07/08/2017 4:00 Results f or this ([facility]/CG) AM EST procedure are i n the [...] Routine 07/06/2017 7:40 Results f or this ([facility]/CGP) PM EST procedure are i n the [...] section. TYPE AND SCREEN Routine 07/06/2017 12:00 ([facility]/CGP/SHANDA) PM EST APTT STAT 07/06/2017 11:24 Results [...] Routine 07/06/2017 8:10 Results f or this ([facility]/CGP) AM EST procedure are i n the [...] Routine 07/05/2017 8:20 Results f or this ([facility]/CGP) PM EST procedure are i n the [...] Timed 07/05/2017 4:55 Results f or this ([facility]/CGP) PM EST procedure are i n the [...] 2017 EXAMINATION: XR CHEST PA AND LATERAL (ReadyIC) CLINICAL HISTORY: CABG x 3 TECHNIQUE: PA [...] Teague APRN IMG DX ORDERABLES SCAN 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 (07/15/2017 12:00 AM EST) Narrative 07/15/2017 [...] Signature POC Glucose 186 65 - 199 [facility] mg/dL [facility] Comment: Supplemental [...] City/[facility]/[place] [address] POCT Glucose (07/14/2017 7:52 AM EST) athologist Signature POC Glucose 126 65 - 199 [facility] mg/dL [facility] Comment: Supplemental ranges: <140 mg/dL before meals <180 mg/dL all other times of the day Specimen Anatomical Collection Method Collection Time Receive d Time (Source) Location / / Volume Laterality Blood specimen 07/14/2017 7:52 AM 017 7:52 (specimen) EST AM EST Yuan Webber MD POINT OF CARE TEST ORDERABLE S Performing Organization Address City/State/[place] [address] (ABNORMAL) Prothrombin Time (07/14/2017 [...] City/[facility]/[place] [address] Potassium (07/14/2017 4:46 AM EST) athologist Signature Potassium 4.3 3.5 - 5.0 [facility] mmol/L [facility] Comment: Please note: ??Patients with [...] City/[facility]/[place] [address] POCT Glucose (07/14/2017 4:34 AM EST) athologist Signature POC Glucose 115 65 - 199 [facility] mg/dL [facility] Comment: Supplemental [...] City/State/ZIP Code Phon e Number [place] [id number] POCT Glucose (07/13/2017 11:33 PM EST) athologist Signature POC Glucose 132 65 - 199 [place] mg/dL [facility] Comment: [...] Address City/State/ZIP Code Phon e Number [address] POCT Glucose (07/13/2017 9:25 PM EST) athologist Signature POC Glucose 121 65 - 199 [place] mg/dL [facility] Comment: [...] Address City/State/ZIP Code Phon e Number [address] POCT Glucose (07/13/2017 4:55 PM EST) athologist Signature POC Glucose 79 65 - 199 [place] mg/dL [facility] Comment: [...] Organization Address City/State/[place] [address] POCT Glucose (07/13/2017 11:16 AM EST) athologist Signature POC Glucose 163 65 - 199 [facility] mg/dL [facility] Comment: Supplemental [...] Address City/State/ZIP Code Phon e Number [address] POCT Glucose (07/13/2017 8:07 AM EST) athologist Signature POC Glucose 96 65 - 199 [facility] mg/dL [facility] Comment: [...] Address City/State/ZIP Code Phon e Number [address] (ABNORMAL) Prothrombin Time (07/13/2017 [...] Organization Address City/State/[place] [address] (ABNORMAL) Basic Metabolic Panel (non-fasting) (07/13/2017 4:26 AM EST) athologist Signature Glucose Lvl 95 65 - 199 [facility] mg/dL [facility] Comment: Diabetes: [...] [facility] Estimated GFR 60 >=60 [facility] Comment: The reported eGFR should be multiplied b y 1.2 for patients. The MDRD is not an appropriate measure o f renal function for patients with body mass extremes or in patients with acute kidney failure. [email or web address] [email or web address]://GOSO/DHMCnkf Specimen Anatomical Collection Method Collection Time Receive d Time (Source) Location / / Volume Laterality Blood specimen 07/13/2017 4:26 AM 017 4:46 (specimen) EST AM EST Resulting Agency Comment Spec In Lab Makayla Wilson APRN CHEMISTRY ORDERABLES Performing Organization Address City/[facility]/ZIP Code Phon e Number [address] POCT Glucose (07/13/2017 3:52 AM EST) athologist Signature POC Glucose 93 65 - 199 [facility] RYAN mg/dL [facility] Comment: [...] City/[facility]/ZIP Code Phon e Number [address] POCT Glucose (07/13/2017 12:21 AM EST) athologist Signature POC Glucose 80 65 - 199 [place] mg/dL [facility] Comment: [...] City/[facility]/[place] [address] POCT Glucose (07/12/2017 8:22 PM EST) athologist Signature POC Glucose 119 65 - 199 [place] mg/dL [facility] Comment: [...] Address City/State/ZIP Code Phon e Number [address] POCT Glucose (07/12/2017 4:02 PM EST) athologist Signature POC Glucose 114 65 - 199 [place] mg/dL [facility] Comment: [...] Address City/State/ZIP Code Phon e Number [address] POCT Glucose (07/12/2017 11:28 AM EST) athologist Signature POC Glucose 164 65 - 199 [facility] RYAN mg/dL [facility] Comment: [...] Address City/State/ZIP Code Phon e Number [address] POCT Glucose (07/12/2017 7:34 AM EST) athologist Signature POC Glucose 109 65 - 199 [facility] [place]YAN mg/dL [facility] Comment: [...] Organization Address City/State/[place] [address] (ABNORMAL) Basic Metabolic Panel (non-fasting) (07/12/2017 4:11 AM EST) P athologist Signature Glucose Lvl 92 65 - 199 [facility] mg/dL [facility] Comment: Diabetes: [...] or in patients with acute kidney failure. [email or web address]/DHnkdep [email or web address].[employer]/DHMCnkf Specimen Anatomical Collection Method Collection Time Receive d Time (Source) Location / / Volume Laterality Blood specimen 07/12/2017 4:11 AM 017 8:57 (specimen) EST AM EST Resulting Agency Comment Spec In Lab Makayla Wilson APRN CHEMISTRY ORDERABLES Performing Organization Address City/State/[place] [address] (ABNORMAL) Prothrombin Time (07/12/2017 [...] City/[facility]/[place] [address] Potassium (07/12/2017 4:11 AM EST) athologist Signature Potassium 3.8 3.5 - 5.0 [facility] mmol/L [facility] Comment: Please note: ??Patients with [...] Agency Comment Spec In Lab Makayla Dejes[employer] MANAGER CHEMISTRY ORDERABLES Performing Organization Address City/[facility]/[place] [address] POCT Glucose (07/12/2017 4:10 AM EST) athologist Signature POC Glucose 90 65 - 199 [facility] mg/dL [facility] Comment: [...] Address City/State/ZIP Code Phon e Number [address] POCT Glucose (07/11/2017 11:57 PM EST) athologist Signature POC Glucose 98 65 - 199 [facility] mg/dL [facility] Comment: [...] Address City/State/ZIP Code Phon e Number [address] POCT Glucose (07/11/2017 8:32 PM EST) athologist Signature POC Glucose 146 65 - 199 [facility] mg/dL [facility] Comment: [...] Organization Address City/State/[place] [address] XR Chest PA & [...] e xtubated, left chest tube removed, and [place]-Suzi catheter removed since the study. Atelectasis at [...] e xtubated, left chest tube removed, and [place]-Suzi catheter removed since the study. Atelectasis at [...] (H) 65 - 199 [place] mg/dL [facility] Comment: [...] Address City/State/ZIP Code Phon e Number [address] POCT Glucose (07/11/2017 11:55 AM EST) athologist Signature POC Glucose 176 65 - 199 [place] mg/dL [facility] Comment: [...] City/[facility]/ZIP Code Phon e Number [address] POCT Glucose (07/11/2017 7:53 AM EST) athologist Signature POC Glucose 189 65 - 199 [place] mg/dL [facility] Comment: [...] Organization Address City/State/[place] [address] POCT Glucose (07/11/2017 4:22 AM EST) athologist Signature POC Glucose 151 65 - 199 [place] mg/dL [facility] Comment: [...] City/[facility]/[place] [address] Potassium (07/11/2017 2:20 AM EST) athologist Signature Potassium 4.5 3.5 - 5.0 [facility] mmol/L [facility] Comment: Please note: ??Patients with [...] City/[facility]/[place] [address] POCT Glucose (07/11/2017 12:17 AM EST) athologist Signature POC Glucose 162 65 - 199 [place] mg/dL [facility] Comment: [...] City/[facility]/[place] [address] POCT Glucose (07/10/2017 8:47 PM EST) athologist Signature POC Glucose 191 65 - 199 [place] mg/dL [facility] Comment: [...] Organization Address City/State/[place] [address] POCT Glucose (07/10/2017 4:06 PM EST) athologist Signature POC Glucose 131 65 - 199 [place] mg/dL [facility] Comment: [...] City/[facility]/[place] [address] POCT Glucose (07/10/2017 3:08 PM EST) athologist Signature POC Glucose 151 65 - 199 [place] mg/dL [facility] Comment: [...] Organization Address City/State/[place] [address] POCT Glucose (07/10/2017 2:25 PM EST) athologist Signature POC Glucose 146 65 - 199 [facility] RYAN mg/dL [facility] Comment: [...] Address City/State/ZIP Code Phon e Number [address] POCT Glucose (07/10/2017 1:23 PM EST) P athologist Signature POC Glucose 166 65 - 199 [place] mg/dL [facility] Comment: [...] City/[facility]/ZIP Code Phon e Number [address] POCT Glucose (07/10/2017 11:52 AM EST) P athologist Signature POC Glucose 157 65 - 199 [place] mg/dL [facility] Comment: [...] City/[facility]/[place] [address] POCT Glucose (07/10/2017 11:01 AM EST) P athologist Signature POC Glucose 158 65 - 199 [place] mg/dL [facility] Comment: [...] Address City/State/ZIP Code Phon e Number [address] POCT Glucose (07/10/2017 9:54 AM EST) athologist Signature POC Glucose 160 65 - 199 [place] mg/dL [facility] Comment: [...] City/[facility]/ZIP Code Phon e Number [address] POCT Glucose (07/10/2017 8:58 AM EST) athologist Signature POC Glucose 183 65 - 199 [place] mg/dL [facility] Comment: [...] Address City/State/ZIP Code Phon e Number [address] POCT Glucose (07/10/2017 8:01 AM EST) athologist Signature POC Glucose 173 65 - 199 [facility] RYAN mg/dL [facility] Comment: [...] Address City/State/ZIP Code Phon e Number [address] POCT Glucose (07/10/2017 7:05 AM EST) athologist Signature POC Glucose 166 65 - 199 [place] mg/dL [facility] Comment: [...] Address City/State/ZIP Code Phon e Number [address] POCT Glucose (07/10/2017 6:00 AM EST) athologist Signature POC Glucose 162 65 - 199 [facility] mg/dL [facility] Comment: [...] Organization Address City/State/[place] [address] (ABNORMAL) Differential, Automated (07/10/2017 4:28 AM EST) [facility] gist Method Time Signature Neutrophils % 87.9 % [facility] Neutr Abs (ANC) 10.70 (H) 1.70 - [facility] 6.10 [facility] x10(3)/[facility] L LABORATORY Lymphocytes % 3.9 % [facility] Lymphocytes Abs 0.5 (L) 0.9 - 3.2 [facility] x10(3)/[facility] LABORATORY Monocytes % 7.0 % [facility] Monocyte Abs 0.8 0.3 - 0.9 [facility] x10(3)/[facility] LABORATORY Eosinophils % 0.3 % [facility] Eosinophils Abs 0.0 0.0 - 0.4 [facility] x10(3)/[facility] LABORATORY Basophils % 0.2 % [facility] Basophils Abs 0.0 0.0 - 0.1 [facility] x10(3)/[facility] LABORATORY Immature Gran [...] Organization Address City/State/[place] [address] (ABNORMAL) Hemogram (07/10/2017 4:28 AM EST) Analysis Performed At Patho logist Time Signature WBC 12.2 (H) 4.0 - 9.5 [facility] x10(3)/[facility] LABORATORY RBC 3.31 (L) 4.58 - [facility] 5.54 [facility] x10(6)/[facility] LABORATORY Hemoglobin 9.8 (L) 13.7 - [facility] 16.5 gm/dL [facility] Hematocrit 30.0 (L) 40.5 - [facility] 48.5 % [facility] MCV 90.6 82.9 - [facility] 93.1 fL [facility] MCH 29.6 27.5 - [facility] 32.1 pg [facility] MCHC 32.7 32.0 - [facility] 35.7 gm/dL [facility] Platelets 135 (L) 145 - 357 [facility] x10(3)/[facility] LABORATORY RDWSD 50.8 (H) 36.0 - [facility] 45.[address] [facility] LABORATORY RDWCV 15.4 (H) 11.4 - [facility] 13.8 % [facility] MPV 10.0 7.6 - 12.9 [facility] LABORATORY nRBC % Auto 0.0 % [facility] nRBC Abs Auto 0.000 0.000 - [facility] 0.000 [facility] x10(3)/[facility] LABORATORY Specimen Anatomical Collection Method Collection Time Receive d Time (Source) Location / / Volume Laterality Blood specimen 07/10/2017 4:28 AM 017 4:36 (specimen) EST AM EST Resulting Agency Comment Spec In Lab Yuan Webber MD HEMATOLOGY ORDERABLES Performing Organization Address City/State/[place] [address] (ABNORMAL) Basic Metabolic Panel (non-fasting) (07/10/2017 4:28 AM EST) athologist Signature Glucose Lvl 178 65 - 199 [facility] mg/dL [facility] Comment: Diabetes: [...] [facility] Estimated GFR 60 >=60 [facility] Comment: The reported eGFR should be multiplied b y 1.2 for patients. The MDRD is not an appropriate measure o f renal function for patients with body mass extremes or in patients with acute kidney failure. http://GOSO/DHnkdep http://GOSO/DHMCnkf Specimen Anatomical Collection Method Collection Time Receive d Time (Source) Location / / Volume Laterality Blood specimen 07/10/2017 4:28 AM 017 4:36 (specimen) EST AM EST Resulting Agency Comment Spec In Lab Yuan Webber MD CHEMISTRY ORDERABLES Performing Organization Address City/[facility]/ZIP Code Phon e Number [address] POCT Glucose (07/10/2017 4:26 AM EST) P athologist Signature POC Glucose 176 65 - 199 [facility] mg/dL [facility] Comment: Supplemental ranges: <140 mg/dL before meals <180 mg/dL all other times of the day Specimen Anatomical Collection Method Collection Time Receive d Time (Source) Location / / Volume Laterality Blood specimen 07/10/2017 4:26 AM 017 4:26 (specimen) EST AM EST Yuan Webber MD POINT OF CARE TEST ORDERABLE S Performing Organization Address City/State/[place] [address] (ABNORMAL) POCT Glucose (07/10/2017 3:06 AM EST) P athologist Signature POC Glucose 204 (H) 65 - 199 [facility] mg/dL [facility] Comment: [...] City/[facility]/[place] [address] (ABNORMAL) POCT Glucose (07/10/2017 2:10 AM EST) P athologist Signature POC Glucose 203 (H) 65 - 199 [place] mg/dL [facility] Comment: [...] City/[facility]/[place] [address] POCT Glucose (07/10/2017 1:09 AM EST) P athologist Signature POC Glucose 196 65 - 199 [place] mg/dL [facility] Comment: [...] Organization Address City/State/[place] [address] POCT Glucose (07/10/2017 12:10 AM EST) P athologist Signature POC Glucose 173 65 - 199 [place] mg/dL [facility] Comment: [...] Address City/State/ZIP Code Phon e Number [address] POCT Glucose (07/09/2017 11:01 PM EST) athologist Signature POC Glucose 140 65 - 199 [place] mg/dL [facility] Comment: [...] City/[facility]/ZIP Code Phon e Number [address] POCT Glucose (07/09/2017 10:05 PM EST) athologist Signature POC Glucose 144 65 - 199 [place] mg/dL [facility] Comment: [...] Organization Address City/State/[place] [address] POCT Glucose (07/09/2017 9:31 PM EST) athologist Signature POC Glucose 121 65 - 199 [place] mg/dL [facility] Comment: [...] Address City/State/ZIP Code Phon e Number [address] POCT Glucose (07/09/2017 9:03 PM EST) athologist Signature POC Glucose 98 65 - 199 [place] mg/dL [facility] Comment: [...] Address City/State/ZIP Code Phon e Number [address] POCT Glucose (07/09/2017 8:09 PM EST) athologist Signature POC Glucose 117 65 - 199 [place] mg/dL [facility] Comment: [...] Address City/State/ZIP Code Phon e Number [address] POCT Glucose (07/09/2017 5:40 PM EST) athologist Signature POC Glucose 155 65 - 199 [facility] RYAN mg/dL [facility] Comment: [...] Address City/State/ZIP Code Phon e Number [address] POCT Glucose (07/09/2017 4:24 PM EST) athologist Signature POC Glucose 164 65 - 199 [place] mg/dL [facility] Comment: Supplemental ranges: <140 mg/dL before meals <180 mg/dL all other times of the day Specimen Anatomical Collection Method Collection Time Receive d Time (Source) Location / / Volume Laterality Blood specimen 07/09/2017 4:24 PM 017 4:24 (specimen) EST PM EST Yuan eWbber MD POINT OF CARE TEST ORDERABLE S Performing Organization Address City/[facility]/ZIP Code Phon e Number [address] POCT Glucose (07/09/2017 3:19 PM EST) athologist Signature POC Glucose 166 65 - 199 [place] mg/dL [facility] Comment: [...] City/[facility]/[place] [address] POCT Glucose (07/09/2017 2:26 PM EST) athologist Signature POC Glucose 179 65 - 199 [place] mg/dL [facility] Comment: [...] Organization Address City/State/[place] [address] (ABNORMAL) POCT Glucose (07/09/2017 1:29 PM EST) P athologist Signature POC Glucose 210 (H) 65 - 199 [facility] RYAN mg/dL [facility] Comment: [...] Organization Address City/State/[place] [address] POCT Glucose (07/09/2017 12:20 PM EST) athologist Signature POC Glucose 172 65 - 199 [facility] RYAN mg/dL [facility] Comment: [...] Organization Address City/State/[place] [address] POCT Glucose (07/09/2017 11:24 AM EST) athologist Signature POC Glucose 156 65 - 199 [facility] RYAN mg/dL [facility] Comment: [...] Organization Address City/State/[place] [address] POCT Glucose (07/09/2017 11:11 AM EST) athologist Signature POC Glucose 172 65 - 199 [place]HA[place] mg/dL [facility] Comment: [...] Address City/State/ZIP Code Phon e Number [address] POCT Glucose (07/09/2017 10:08 AM EST) athologist Signature POC Glucose 176 65 - 199 [place]HA[place] mg/dL [facility] Comment: [...] Address City/State/ZIP Code Phon e Number [address] POCT Glucose (07/09/2017 8:02 AM EST) athologist Signature POC Glucose 178 65 - 199 [place] mg/dL [facility] Comment: [...] Organization Address City/State/[place] [address] (ABNORMAL) BLOOD GAS 2 ARTERIAL (07/09/2017 5:37 AM EST) Analysis Performed At Patho logist Time Signature pH Art 7.36 7.35 - [facility] 7.45 [facility] pCO2 Art 38 35 - 45 [facility] mmHg [facility] pO2 Art 79 (L) 85 - 104 [facility] LABORATORY HCO3 Art 20.9 20.0 - [facility] 26.0 [facility] mmol/L [facility] LABORATORY BE Art -4.6 (L) -3.0 - 3.0 [facility] mmol/L [facility] Hgb Blood Gas 10.5 (L) 13.7 - [facility] 16.5 gm/dL [facility] O2HB Art 93.8 (L) 94.0 - [facility] 97.0 % [facility] COHB Art 0.3 % [facility] FIO2 Art 40 % [facility] PF Ratio Art 198 [facility] Specimen Anatomical Collection Method Collection Time Receive d Time (Source) Location / / Volume Laterality Blood specimen 07/09/2017 5:37 AM 017 5:37 (specimen) EST AM EST Yuan Webber MD CHEMISTRY ORDERABLES Performing Organization Address City/[facility]/ZIP Code Phon e Number [address] POCT Glucose (07/09/2017 3:27 AM EST) athologist Signature POC Glucose 192 65 - 199 [facility] mg/dL [facility] Comment: Supplemental ranges: <140 mg/dL before meals <180 mg/dL all other times of the day Specimen Anatomical Collection Method Collection Time Receive d Time (Source) Location / / Volume Laterality Blood specimen 07/09/2017 3:27 AM 017 3:27 (specimen) EST AM EST Yuan Webber MD POINT OF CARE TEST ORDERABLE S Performing Organization Address City/State/[place] [address] (ABNORMAL) Basic Metabolic Panel (non-fasting) (07/09/2017 2:30 AM EST) athologist Signature Glucose Lvl 179 65 - 199 [facility] mg/dL [facility] Comment: Diabetes: [...] or in patients with acute kidney failure. [email or web address] Specimen Anatomical Collection Method Collection Time Receive d Time (Source) Location / / Volume Laterality Blood specimen Venous Draw / 07/09/2017 2:30 AM 2016 2:42 (specimen) Unknown EST AM EST Resulting Agency Comment Spec In Lab Yuan Webber MD CHEMISTRY ORDERABLES Performing Organization Address City/[facility] [place] [address] (ABNORMAL) Potassium (07/09/2017 2:30 AM EST) P athologist Signature Potassium 5.1 (H) 3.5 - 5.0 [facility] mmol/L [facility] Comment: Please note: ??Patients with [...] ORDERABLES Performing Organization Address City/[facility]/ZIP [facility] [place] [address] (ABNORMAL) Hemogram (07/09/2017 2:30 AM EST) Analysis Performed At Patho logist Time Signature WBC 12.5 (H) 4.0 - 9.5 [facility] [place] x10(3)/[facility] LABORATORY RBC 3.38 (L) 4.58 - [place] 5.54 [facility] x10(6)/[facility] LABORATORY Hemoglobin 10.1 (L) 13.7 - [place] 16.5 gm/dL [facility] Hematocrit 30.3 (L) 40.5 - [place] 48.5 % [facility] MCV 89.6 82.9 - [facility] 93.1 [facility] LABORATORY MCH 29.9 27.5 - [place] 32.1 pg [facility] MCHC 33.3 32.0 - [place] 35.7 gm/dL [facility] Platelets 127 (L) 145 - 357 [facility] x10(3)/[facility] LABORATORY RDWSD 49.3 (H) 36.0 - [facility] 45.0 [facility] LABORATORY RDWCV 15.2 (H) 11.4 - [facility] RYAN 13.8 % [facility] MPV 9.9 7.6 - 12.9 [facility] [place] LABORATORY nRBC % Auto 0.0 % [facility] nRBC Abs Auto 0.000 0.000 - [place] 0.000 [facility] x10(3)/[facility] LABORATORY Specimen Anatomical Collection Method Collection Time Receive d Time (Source) Location / / Volume Laterality Blood specimen 07/09/2017 2:30 AM 017 2:41 (specimen) EST AM EST Resulting Agency Comment Spec In Lab Yuan Webber MD HEMATOLOGY ORDERABLES Performing Organization Address City/State/[place] [address] POCT Glucose (07/09/2017 2:10 AM EST) P athologist Signature POC Glucose 169 65 - 199 [facility] mg/dL [facility] Comment: Supplemental [...] Address City/State/ZIP Code Phon e Number [address] POCT Glucose (07/09/2017 1:01 AM EST) P athologist Signature POC Glucose 173 65 - 199 [place] mg/dL [facility] Comment: Supplemental [...] City/[facility]/[place] [address] Blood culture (07/09/2017 12:40 AM EST) [facility] gist Method Time Signature Blood Culture No growth [place] at 5 days. [facility] Specimen Anatomical Collection Method Collection Time Receive d Time (Source) Location / / Volume Laterality Blood specimen STRUCTURE OF RIGHT 07/09/2017 12:40 3:58 (specimen) UPPER LIMB / AM EST AM EST Unknown Resulting Agency Comment Spec In Lab Yuan Webber MD MICROBIOLOGY - BLOOD ORDERAB LES Performing Organization Address City/[facility]/ZIP [place] [address] Blood culture (07/09/2017 12:30 AM EST) Patholo gist Method Time Signature Blood Culture No growth [place] at 5 days. [facility] Specimen Anatomical Collection Method Collection Time Receive d Time (Source) Location / / Volume Laterality Blood specimen STRUCTURE OF LEFT 07/09/2017 12:30 06/25 3:59 (specimen) UPPER LIMB / AM EST AM EST Unknown Resulting Agency Comment Spec In Lab Yuan Webber MD MICROBIOLOGY - BLOOD ORDERAB LES Performing Organization Address City/[facility]/ZIP [place] [address] (ABNORMAL) Urinalysis Microscopic Exam [...] Organization Address City/State/[place] [address] (ABNORMAL) Urinalysis with reflex Culture (07/09/2017 12:05 AM EST) Patholo gist Method Time Signature Glucose UA Negative Negative [facility] mg/dL [facility] Protein UA 30 (A) Negative [facility] mg/dL [facility] Bilirubin UA Negative Negative [facility] mg/dL [facility] Comment: Clinical correlation required for [...] [facility] Nitrite UA Negative Negative [facility] Leukocytes UA Negative Negative [facility] LABORATORY Appearance UA Hazy (A) Clear [facility]ATORY Spec [place] UA 1.025 1.002 - 1.030 [facility] Color UA Yellow Yellow [facility] [...] City/[facility]/ZIP Code Phon e Number [address] POCT Glucose (07/08/2017 11:01 PM EST) athologist Signature POC Glucose 191 65 - 199 [facility] [place] mg/dL [facility] Comment: Supplemental [...] City/[facility]/ZIP Code Phon e Number [address] POCT Glucose (07/08/2017 10:04 PM EST) athologist Signature POC Glucose 198 65 - 199 [facility] mg/dL [facility] Comment: [...] Organization Address City/State/[place] [address] Prepare Albumin 5% in [...] Organization Address City/State/[place] [address] POCT Glucose (07/08/2017 8:28 PM EST) athologist Signature POC Glucose 195 65 - 199 [facility] mg/dL [facility] Comment: [...] Organization Address City/State/[place] [address] (ABNORMAL) POCT Glucose (07/08/2017 7:13 PM EST) athologist Signature POC Glucose 220 (H) 65 - 199 [facility] mg/dL [facility] Comment: [...] Organization Address City/State/[place] [address] POCT Glucose (07/08/2017 5:04 PM EST) athologist Signature POC Glucose 147 65 - 199 [facility] mg/dL [facility] Comment: Supplemental ranges: <140 mg/dL before meals <180 mg/dL all other times of the day Specimen Anatomical Collection Method Collection Time Receive d Time (Source) Location / / Volume Laterality Blood specimen 07/08/2017 5:04 PM 017 5:04 (specimen) EST PM EST Yuan Webber MD POINT OF CARE TEST ORDERABLE S Performing Organization Address City/State/[place] [address] (ABNORMAL) BLOOD GAS 2 ARTERIAL (07/08/2017 4:13 PM EST) Analysis Performed At Patho logist Time Signature pH Art 7.38 7.35 - [facility] 7.45 [facility] pCO2 Art 36 35 - 45 [facility] mmHg [facility] pO2 Art 91 85 - 104 [facility] LABORATORY HCO3 Art 20.9 20.0 - [facility] 26.0 [facility] mmol/L [facility] BE Art -4.2 (L) -3.0 - 3.0 [facility] mmol/L [facility] Hgb Blood Gas 11.7 (L) 13.7 - [facility] 16.5 gm/dL [facility] O2HB Art 95.1 94.0 - [facility] 97.0 % [facility] COHB Art 0.6 % [facility] FIO2 Art 40 % [facility] PF Ratio Art 228 [facility] Specimen Anatomical Collection Method Collection Time Receive d Time (Source) Location / / Volume Laterality Blood specimen 07/08/2017 4:13 PM 017 4:13 (specimen) EST PM EST Yuan Webber MD CHEMISTRY ORDERABLES Performing Organization Address City/[facility]/ZIP [facility] [place] [address] POCT Glucose (07/08/2017 4:01 PM EST) P athologist Signature POC Glucose 148 65 - 199 [facility] [place] mg/dL [facility] Comment: Supplemental [...] City/[facility]/[place] [address] POCT Glucose (07/08/2017 3:21 PM EST) P athologist Signature POC Glucose 118 65 - 199 [facility] [place] mg/dL [facility] Comment: Supplemental [...] Address City/State/ZIP Code Phon e Number [address] POCT Glucose (07/08/2017 2:01 PM EST) athologist Signature POC Glucose 129 65 - 199 [place] mg/dL [facility] Comment: [...] City/[facility]/ZIP Code Phon e Number [address] POCT Glucose (07/08/2017 11:53 AM EST) athologist Signature POC Glucose 156 65 - 199 [place] mg/dL [facility] Comment: [...] City/[facility]/ZIP Code Phon e Number [address] POCT Glucose (07/08/2017 11:04 AM EST) athologist Signature POC Glucose 181 65 - 199 [place] mg/dL [facility] Comment: [...] Organization Address City/State/[place] [address] (ABNORMAL) POCT Glucose (07/08/2017 9:24 AM EST) athologist Signature POC Glucose 203 (H) 65 - 199 [facility] mg/dL [facility] Comment: Supplemental ranges: <140 mg/dL before meals <180 mg/dL all other times of the day Specimen Anatomical Collection Method Collection Time Receive d Time (Source) Location / / Volume Laterality Blood specimen 07/08/2017 9:24 AM 017 9:24 (specimen) EST AM EST Yuan Webber MD POINT OF CARE TEST ORDERABLE S Performing Organization Address City/State/[place] [address] APTT (07/08/2017 8:40 AM EST) athologist Signature PTT 33 25 - 35 sec [facility] Comment: The recommended therapeutic range for fu ll dose, unfractionated heparin at [facility] is 80 ? 114 seconds. The use [...] City/[facility]/[place] [address] (ABNORMAL) Prothrombin Time (07/08/2017 [...] Organization Address City/State/[place] [address] (ABNORMAL) POCT Glucose (07/08/2017 7:38 AM EST) athologist Signature POC Glucose 232 (H) 65 - 199 [facility] mg/dL [facility] Comment: [...] City/[facility]/[place] [address] (ABNORMAL) POCT Glucose (07/08/2017 7:07 AM EST) athologist Signature POC Glucose 234 (H) 65 - 199 [facility] mg/dL [facility] Comment: [...] City/[facility]/[place] [address] (ABNORMAL) POCT Glucose (07/08/2017 6:04 AM EST) athologist Signature POC Glucose 225 (H) 65 - 199 [facility] mg/dL [facility] Comment: [...] Organization Address City/State/[place] [address] (ABNORMAL) POCT Glucose (07/08/2017 5:31 AM EST) athologist Signature POC Glucose 216 (H) 65 - 199 [facility] mg/dL [facility] Comment: [...] Organization Address City/State/[place] [address] (ABNORMAL) POCT Glucose (07/08/2017 4:52 AM EST) athologist Signature POC Glucose 257 (H) 65 - 199 [facility] mg/dL [facility] Comment: [...] Organization Address City/State/[place] [address] (ABNORMAL) BLOOD GAS 2 ARTERIAL (07/08/2017 4:04 AM EST) Analysis Performed At Patho logist Time Signature pH Art 7.30 (L) 7.35 - [facility] 7.45 [facility] pCO2 Art 41 35 - 45 [facility] mmHg [facility] pO2 Art 83 (L) 85 - 104 [facility] LABORATORY HCO3 Art 19.6 (L) 20.0 - [facility] 26.0 [facility] mmol/L [facility] BE Art -6.8 (L) -3.0 - 3.0 [facility] mmol/L [facility] Hgb Blood Gas 12.2 (L) 13.7 - [facility] 16.5 gm/dL [facility] O2HB Art 93.5 (L) 94.0 - [facility] 97.0 % [facility] COHB Art 0.4 % [facility] [...] [facility] Comment: Noted by reed or wind instrument repairer. FIO2 Art 40 % [facility] PF Ratio Art 208 [facility] Specimen Anatomical Collection Method Collection Time Receive d Time (Source) Location / / Volume Laterality Blood specimen 07/08/2017 4:04 AM 017 4:04 (specimen) EST AM EST Daphne Shahid MD CHEMISTRY ORDERABLES Performing Organization Address City/State/ZIP Code Phon e Number [address] Scan, Peripheral Blood (07/08/2017 [...] City/[facility]/ZIP Code Phon e Number [address] (ABNORMAL) Differential, Automated (07/08/2017 4:00 AM EST) Patholo gist Method Time Signature Neutrophils % 85.4 % [facility] Neutr Abs (ANC) 16.07 (H) 1.70 - [facility] 6.10 [facility] x10(3)/[facility] LABORATORY Lymphocytes % 3.5 % [facility] Lymphocytes Abs 0.6 (L) 0.9 - 3.2 [facility] x10(3)/[facility] LABORATORY Monocytes % 10.4 % [facility] Monocyte Abs 2.0 (H) 0.3 - 0.9 [facility] x10(3)/[facility] LABORATORY Eosinophils % 0.0 % [facility] Eosinophils Abs 0.0 0.0 - 0.4 [facility] x10(3)/[facility] LABORATORY Basophils % 0.1 % [facility] Basophils Abs 0.0 0.0 - 0.1 [facility] x10(3)/[facility] LABORATORY Immature Gran [...] Organization Address City/State/[place] [address] (ABNORMAL) Hemogram (07/08/2017 4:00 AM EST) Analysis Performed At Patho logist Time Signature WBC 18.8 (H) 4.0 - 9.5 [facility] x10(3)/[facility] LABORATORY RBC 4.00 (L) 4.58 - [facility] 5.54 [facility] x10(6)/[facility] LABORATORY Hemoglobin 11.9 (L) 13.7 - [facility] 16.5 gm/dL [facility] Hematocrit 35.9 (L) 40.5 - [facility] [place] 48.5 % [facility] MCV 89.8 82.9 - [facility] 93.1 [facility] LABORATORY MCH 29.8 27.5 - [facility] RYAN 32.1 pg [facility] MCHC 33.1 32.0 - [facility] 35.7 gm/dL [facility] Platelets 232 145 - 357 [facility] x10(3)/[facility] LABORATORY RDWSD 47.6 (H) 36.0 - [facility] RYAN 45.0 [facility] RDWCV 14.5 (H) 11.4 - [facility] RYAN 13.8 % [facility] MPV 9.5 7.6 - 12.9 [facility] LABORATORY nRBC % Auto 0.0 % [facility] nRBC Abs Auto 0.000 0.000 - [facility] 0.000 [facility] x10(3)/[facility] LABORATORY Specimen Anatomical Collection Method Collection Time Receive d Time (Source) Location / / Volume Laterality Blood specimen 07/08/2017 4:00 AM 017 4:09 (specimen) EST AM EST Resulting Agency Comment Spec In Lab Yuan Webber MD HEMATOLOGY ORDERABLES Performing Organization Address City/[facility]/[place] [address] (ABNORMAL) Electrolytes panel (07/08/2017 4:00 AM EST) athologist Signature Sodium 139 135 - 145 [facility] mmol/L [facility] Potassium 4.7 3.5 - 5.0 [facility] mmol/L [facility] Comment: result rechecked-JLK Please note: [...] City/[facility]/[place] [address] (ABNORMAL) Cardiac Enzymes (LEB/CGP) (07/08/2017 4:00 AM EST) P athologist Signature Troponin-T 1.88 (H) 0.00 - [facility] 0.00 ng/mL [facility] Comment: The 99th percentile for [...] additional sample may be indicated. Reference: Third [place] Definition of Myocardial Infarction. Journal of the [place] [employer] 2012;60:1581-98 CK, Total 413 (H) 0 - 200 unit/L [facility] Comment: result rechecked-K Specimen Anatomical Collection Method Collection Time Receive d Time (Source) Location / / Volume Laterality Blood specimen 07/08/2017 4:00 AM 017 4:09 (specimen) EST AM EST Resulting Agency Comment Spec In Lab Yuan Webber MD CHEMISTRY ORDERABLES Performing Organization Address City/State/[place] [address] (ABNORMAL) Glucose, fasting (07/08/2017 4:00 AM EST) athologist Signature Glucose 287 (H) 65 - 99 [facility] Fasting mg/dL [facility] Comment: ?Fasting* Glucose Interpretive C [...] CHEMISTRY ORDERABLES Performing Organization Address City/[facility] Code Phon e Number [address] (ABNORMAL) Creatinine (07/08/2017 4:00 AM EST) Analysis Performed At Patho logist Time Signature Creatinine 1.55 (H) 0.80 - [place] 1.50 mg/dL [facility] Estimated GFR 44 (L) >=60 [facility] Comment: The reported eGFR should be multiplied b y 1.2 for patients. The MDRD is not an appropriate measure o f renal function for patients with body mass extremes or in patients with acute kidney failure. [email or web address] [email or web address] Specimen Anatomical Collection Method Collection Time Receive d Time (Source) Location / / Volume Laterality Blood specimen 07/08/2017 4:00 AM 017 4:09 (specimen) EST AM EST Resulting Agency Comment Spec In Lab Yuan Webber MD CHEMISTRY ORDERABLES Performing Organization Address City/[facility]/ZIP Code Phon e Number [address] BUN (07/08/2017 4:00 AM EST) P athologist Signature BUN 16 10 - 20 [place] mg/dL [facility] Specimen Anatomical Collection Method Collection Time Receive d Time (Source) Location / / Volume Laterality Blood specimen 07/08/2017 4:00 AM 017 4:09 (specimen) EST AM EST Resulting Agency Comment Spec In Lab Yuan Webber MD CHEMISTRY ORDERABLES Performing Organization Address City/[facility]/ZIP Code Phon e Number [address] (ABNORMAL) POCT Glucose (07/08/2017 3:00 AM EST) P athologist Signature POC Glucose 273 (H) 65 - 199 [facility] mg/dL [facility] Comment: [...] City/[facility]/[place] [address] (ABNORMAL) POCT Glucose (07/08/2017 1:57 AM EST) P athologist Signature POC Glucose 288 (H) 65 - 199 [facility] mg/dL [facility] Comment: Supplemental ranges: <140 mg/dL before meals <180 mg/dL all other times of the day Specimen Anatomical Collection Method Collection Time Receive d Time (Source) Location / / Volume Laterality Blood specimen 07/08/2017 1:57 AM 017 1:57 (specimen) EST AM EST Dapnhe Shahid MD POINT OF CARE TEST ORDERABLE S Performing Organization Address City/[facility]/[place] [address] (ABNORMAL) POCT Glucose (07/08/2017 1:01 AM EST) P athologist Signature POC Glucose 315 (H) 65 - 199 [facility] mg/dL [facility] Comment: [...] Organization Address City/State/[place] [address] (ABNORMAL) BLOOD GAS 2 ARTERIAL (07/08/2017 12:09 AM EST) athologist Signature pH Art 7.26 7.35 - [facility] (Critical) 7.45 [facility] Comment: Noted by reed or [...] [facility] COHB Art 0.2 % [facility] [...] [facility] Comment: Noted by reed or wind instrument repairer. FIO2 Art 40 % [facility] PF Ratio Art 240 [facility] Specimen Anatomical Collection Method Collection Time Receive d Time (Source) Location / / Volume Laterality Blood specimen Arterial Draw / 07/08/2017 12:09 2016 5:31 (specimen) Unknown AM EST AM EST Resulting Agency Comment Spec In Lab Samy Maldonado MD CHEMISTRY ORDERABLES Performing Organization Address City/[facility]/[place] [address] (ABNORMAL) POCT Glucose (07/07/2017 10:56 PM EST) P athologist Signature POC Glucose 292 (H) 65 - 199 [facility] mg/dL [facility] Comment: Supplemental ranges: <140 mg/dL before meals <180 mg/dL all other times of the day Specimen Anatomical Collection Method Collection Time Receive d Time (Source) Location / / Volume Laterality Blood specimen 07/07/2017 10:56 7 (specimen) PM EST 10:56 PM EST Daphne Shahid MD POINT OF CARE TEST ORDERABLE S Performing Organization Address City/State/[place] [address] (ABNORMAL) BLOOD GAS 2 ARTERIAL (07/07/2017 10:04 PM EST) P athologist Signature pH Art 7.22 7.35 - [facility] (Critical) 7.45 [facility] Comment: Noted by reed or [...] [facility] COHB Art 0.7 % [facility] Comment: Noted by reed or wind instrument repairer. FIO2 Art 40 % [facility] PF Ratio Art 235 [facility] Specimen Anatomical Collection Method Collection Time Receive d Time (Source) Location / / Volume Laterality Blood specimen 07/07/2017 10:04 7 (specimen) PM EST 10:04 PM EST Daphne Shahid MD CHEMISTRY ORDERABLES Performing Organization Address City/State/[place] [address] (ABNORMAL) Hemoglobin (07/07/2017 10:00 PM EST) athologist Signature Hemoglobin 12.8 (L) 13.7 - [place] 16.5 gm/dL [facility] Specimen Anatomical Collection Method Collection Time Receive d Time (Source) Location / / Volume Laterality Blood specimen 07/07/2017 10:00 7 (specimen) PM EST 10:13 PM EST Resulting Agency Comment Spec In Lab Yuan Webber MD HEMATOLOGY ORDERABLES Performing Organization Address City/[facility] Phon e Number [address] (ABNORMAL) Potassium (07/07/2017 10:00 PM EST) athologist [facility] Potassium 3.4 (L) 3.5 - 5.0 [facility]/L [facility] Comment: Please note: ??Patients with [...] Webber MD CHEMISTRY ORDERABLES Performing Organization Address [facility] [place] [address] (ABNORMAL) POCT Glucose (07/07/2017 8:49 PM EST) athologist Signature POC Glucose 241 (H) 65 - 199 [facility]dL [facility] Comment: [...] City/[facility]/ZIP Code Phon e Number [address] Prepare Albumin 5% in [...] [facility] BLOOD BANK ORDERABLES Performing Organization Address City/[facility]/ZIP Code Phon e Number [address] EKG 12 Lead (07/07/2017 7:17 PM EST) Component Value Ref Range Test Analysis Performed Pathologis t Method Time At Signature Ventricular rate 75 BPM MUSE SYSTEM Atrial Rate 75 BPM MUSE SYSTEM P-R Interval 168 ms MUSE SYSTEM QRS Duration 104 ms MUSE SYSTEM Q-T Interval 462 ms MUSE SYSTEM QTC Calculated 515 ms MUSE SYSTEM (Bezet) Calculated P [place] 52 degrees MUSE SYSTEM Calculated R [place] -40 degrees MUSE SYSTEM Calculated T [place] 39 degrees MUSE SYSTEM INTERPRETATION Normal sinus [...] 7.35 - [facility] (Critical) 7.45 [facility] Comment: Noted by reed or [...] [facility] COHB Art 0.5 % [facility] Comment: Noted by reed or [...] [facility] Comment: Noted by reed or wind instrument repairer. FIO2 Art 100 % [facility] PF Ratio Art 238 [facility] Specimen Anatomical Collection Method Collection Time Receive d Time (Source) Location / / Volume Laterality Blood specimen 07/07/2017 6:57 PM 017 6:57 (specimen) EST PM EST Daphne Shahid MD CHEMISTRY ORDERABLES Performing Organization Address City/State/[place] [address] (ABNORMAL) BLOOD GAS 2 ARTERIAL (07/07/2017 5:31 PM EST) athologist Signature pH Art 7.29 7.35 - [facility] (Critical) 7.45 [facility] Comment: Noted by reed or [...] [facility] COHB Art 0.3 % [facility]ITY [...] City/[facility]/[place] [address] Fibrinogen (07/07/2017 5:30 PM EST) athologist Signature Fibrinogen 224 180 - 510 [facility] mg/dL [facility] Comment: Called by: JEET, Read [...] City/[facility]/ZIP Code Phon e Number [address] APTT (07/07/2017 5:30 PM EST) athologist Signature PTT 30 25 - 35 sec [facility] Comment: The recommended therapeutic range for fu ll dose, unfractionated heparin at [facility] is 80 ? 114 seconds. The use [...] ORDERABLES Performing Organization Address City/[facility]/ZIP [facility] Phon e Number [address] (ABNORMAL) Prothrombin Time (07/07/2017 [...] City/State/ZIP Code Phon e Number [place] [id number]OS[address] (ABNORMAL) Hemogram (07/07/2017 5:30 PM EST) P athologist Signature WBC 19.6 (H) 4.0 - 9.5 [facility] x10(3)/[facility] LABORATORY RBC 3.08 (L) 4.58 - [facility] 5.54 [facility] x10(6)/[facility] LABORATORY Hemoglobin 9.2 (L) 13.7 - [facility] 16.5 gm/dL [facility] Hematocrit 28.0 (L) 40.5 - [facility] 48.5 % [facility] Comment: This result has been [...] nRBC Abs Auto 0.000 0.000 - 0.000 x10(3)/[facility] LABORATORY Specimen Anatomical Collection Method Collection Time Receive d Time (Source) Location / / Volume Laterality Blood specimen 07/07/2017 5:30 PM 017 5:34 (specimen) EST PM EST Resulting Agency Comment Spec In Lab Yifan Perez MD HEMATOLOGY ORDERABLES Performing Organization Address [facility] Phon e Number [address] Prepare Platelets, Apheresis (07/07/2017 5:00 PM EST) athologist Signature Dispensed? Yes [facility] Specimen Anatomical Collection Method Collection Time Receive d Time (Source) Location / / Volume Laterality Blood specimen 07/07/2017 5:00 PM 017 4:58 (specimen) EST PM EST Daphne Shahid MD BLOOD BANK ORDERABLES Performing Organization Address [facility] Phon e Number [address] Platelet count (07/07/2017 4:55 PM EST) athologist Signature Platelets 177 145 - 357 [facility] x10(3)/[facility] LABORATORY Plat Immature 1.5 0.0 - 7.4 [facility] Comment: Limitation of the Immature Platelet Frac tion (IPF)-May be less reliable when the platelet count is less than 64j490/u L due to statistical imprecision. The IPF [...] in a decreased state of production. References: [employer] The Clinical Value of the Immature Platelet Fraction (IPF) in Cell Recovery Document Number 10-1143 12/2010 [employer] The Role of the Imm ature [...] City/[facility]/[place] [address] (ABNORMAL) Hemoglobin and Hematocrit, blood (07/07/2017 4:55 PM EST) P athologist Signature Hemoglobin 9.1 (L) 13.7 - 16.5 [facility] gm/dL [facility] Comment: This result has been [...] City/[facility]/[place] [address] (ABNORMAL) BLOOD GAS 2 ARTERIAL (07/07/2017 4:38 PM EST) Analysis Performed At Patho logist Time Signature pH Art 7.37 7.35 - [facility] 7.45 [facility] pCO2 Art 44 35 - 45 [facility] LABORATORY pO2 Art 322 (H) 85 - 104 [facility] HCO3 Art 24.9 20.0 - [facility] 26.0 [facility] mmol/L [facility] BE Art -0.4 -3.0 - 3.0 [facility] mmol/L [facility] Hgb Blood Gas 10.1 (L) 13.7 - [facility] 16.5 gm/dL [facility] O2HB Art 98.7 (H) 94.0 - [facility] 97.0 % [facility] COHB Art 0.1 % [facility] [...] Organization Address City/State/[place] [address] (ABNORMAL) BLOOD GAS 2 VENOUS (07/07/2017 4:06 PM EST) Analysis Performed At Patho logist Time Signature pH Cody 7.31 (L) 7.32 - [facility] 7.42 [facility] pCO2 Cody 47 41 - 51 [facility] LABORATORY pO2 Cody 53 (H) 25 - 40 [facility] LABORATORY HCO3 Cody 22.7 mmol/L [facility] BE Cody -3.7 mmol/L [facility] Hgb Blood Gas 10.2 (L) 13.7 - [facility] 16.5 gm/dL [facility] O2HB [place] 81.0 % [facility] BGas Source Venous [facility] Specimen Anatomical Collection Method Collection Time Receive d Time (Source) Location / / Volume Laterality Blood specimen 07/07/2017 4:06 PM 017 4:06 (specimen) EST PM EST Daphne Sahhid MD CHEMISTRY ORDERABLES Performing Organization Address City/State/[place] [address] (ABNORMAL) BLOOD GAS 2 ARTERIAL (07/07/2017 4:05 PM EST) Analysis Performed At Patho logist Time Signature pH Art 7.36 7.35 - [facility] 7.45 [facility] pCO2 Art 40 35 - 45 [facility] LABORATORY pO2 Art 282 (H) 85 - 104 [facility] LABORATORY HCO3 Art 22.1 20.0 - [facility] 26.0 [facility] mmol/L [facility] BE Art -3.4 (L) -3.0 - 3.0 [facility] mmol/L [facility] Hgb Blood Gas 10.2 (L) 13.7 - [facility] 16.5 gm/dL [facility] O2HB Art 98.4 (H) 94.0 - [facility] 97.0 % [facility] COHB Art 0.3 % [facility] [...] Organization Address City/State/[place] [address] (ABNORMAL) BLOOD GAS 2 ARTERIAL (07/07/2017 2:29 PM EST) Analysis Performed At Patho logist Time Signature pH Art 7.43 7.35 - [facility] 7.45 [facility] pCO2 Art 36 35 - 45 [facility] LABORATORY pO2 Art 221 (H) 85 - 104 [facility] LABORATORY HCO3 Art 23.2 20.0 - [facility] 26.0 [facility] mmol/L [facility] BE Art -1.2 -3.0 - 3.0 [facility] mmol/L [facility] Hgb Blood Gas 13.9 13.7 - [facility] 16.5 gm/dL [facility] O2HB Art 97.8 (H) 94.0 - [facility] 97.0 % [facility] COHB Art 1.1 % [facility] [...] CHEMISTRY ORDERABLES Performing Organization Address City/[facility] [place] [address] Prepare Coag Factors (Non-Hemophilia) (07/07/2017 1:25 PM EST) P athologist Signature Dispensed? Yes [facility] Specimen Anatomical Collection Method Collection Time Receive d Time (Source) Location / / Volume Laterality Blood specimen 07/07/2017 1:25 PM 017 1:21 (specimen) EST PM EST Daphne Shahid MD BLOOD BANK ORDERABLES Performing Organization Address City/[facility]/[place] [address] Prepare RBC (07/07/2017 1:10 PM EST) P athologist Signature Dispensed? Yes [facility] Specimen Anatomical Collection Method Collection Time Receive d Time (Source) Location / / Volume Laterality Blood specimen 07/07/2017 1:10 PM 017 1:05 (specimen) EST PM EST Daphne Shahid MD BLOOD BANK ORDERABLES Performing Organization Address City/[facility]/[place] [address] POCT Glucose (07/07/2017 11:56 AM EST) athologist Signature POC Glucose 188 65 - 199 [place] [facility] mg/dL [facility] Comment: [...] Address City/State/ZIP Code Phon e Number [address] POCT Glucose (07/07/2017 11:05 AM EST) athologist Signature POC Glucose 168 65 - 199 [facility] RYAN mg/dL [facility] Comment: [...] Organization Address City/State/[place] [address] POCT Glucose (07/07/2017 10:02 AM EST) athologist Signature POC Glucose 191 65 - 199 [place] RY[place] mg/dL [facility] Comment: [...] Organization Address City/State/[place] [address] POCT Glucose (07/07/2017 7:53 AM EST) athologist Signature POC Glucose 178 65 - 199 [facility] RYAN mg/dL [facility] Comment: [...] Organization Address City/State/[place] [address] POCT Glucose (07/07/2017 7:03 AM EST) athologist Signature POC Glucose 188 65 - 199 [facility] YRAN mg/dL [facility] Comment: Supplemental ranges: <140 mg/dL before meals <180 mg/dL all other times of the day Specimen Anatomical Collection Method Collection Time Receive d Time (Source) Location / / Volume Laterality Blood specimen 07/07/2017 7:03 AM 017 7:03 (specimen) EST AM EST Daphne Shahid MD POINT OF CARE TEST ORDERABLE S Performing Organization Address City/State/[place] [address] (ABNORMAL) POCT Glucose (07/07/2017 6:17 AM EST) athologist Signature POC Glucose 207 (H) 65 - 199 [facility] RYAN mg/dL [facility] Comment: [...] Organization Address City/State/[place] [address] Differential, Automated (07/07/2017 5:15 AM EST) P athologist Signature Neutrophils % 69.7 % [facility] Neutr Abs (ANC) 5.32 1.70 - [facility] 6.10 [facility] x10(3)/[facility] LABORATORY Lymphocytes % 16.3 % [facility] Lymphocytes Abs 1.2 0.9 - 3.2 [facility] x10(3)/[facility] LABORATORY Monocytes % 10.5 % [facility] Monocyte Abs 0.8 0.3 - 0.9 [facility] x10(3)/[facility] LABORATORY Eosinophils % 2.5 % [facility] Eosinophils Abs 0.2 0.0 - 0.4 [facility] x10(3)/[facility] LABORATORY Basophils % 0.7 % [facility] Basophils Abs 0.0 0.0 - 0.1 [facility] x10(3)/[facility] LABORATORY Immature [...] Melisa Gran Abs 0.02 0.00 - 0.04 x10(3)/[facility] Y [facility] Specimen Anatomical Collection Method Collection Time Receive d Time (Source) Location / / Volume Laterality Blood specimen 07/07/2017 5:15 AM 017 5:34 (specimen) EST AM EST Resulting Agency Comment Spec In Lab Daphne Shahid MD HEMATOLOGY ORDERABLES Performing Organization Address City/State/[place] [address] (ABNORMAL) Hemogram (07/07/2017 5:15 AM EST) Analysis Performed At Patho logist Time Signature WBC 7.6 4.0 - 9.5 [facility] x10(3)/[facility] LABORATORY RBC 4.82 4.58 - [facility] 5.54 [facility] x10(6)/[facility] LABORATORY Hemoglobin 14.4 13.7 - [facility] 16.5 gm/dL [facility] Hematocrit 42.1 40.5 - [facility] 48.5 % [facility] MCV 87.3 82.9 - [facility] 93.1 [facility] LABORATORY MCH 29.9 27.5 - [facility] 32.1 pg [facility] MCHC 34.2 32.0 - [facility] 35.7 gm/dL [facility] Platelets 188 145 - 357 [facility] x10(3)/[facility] LABORATORY RDWSD 45.1 (H) 36.0 - [facility] 45.0 [facility] LABORATORY RDWCV 14.3 (H) 11.4 - [facility] 13.8 % [facility] MPV 9.4 7.6 - 12.9 [facility] LABORATORY nRBC % Auto 0.0 % [facility] nRBC Abs Auto 0.000 0.000 - [facility] 0.000 [facility] x10(3)/[facility] LABORATORY Specimen Anatomical Collection Method Collection Time Receive d Time (Source) Location / / Volume Laterality Blood specimen 07/07/2017 5:15 AM 017 5:34 (specimen) EST AM EST Resulting Agency Comment Spec In Lab Daphne Shahid MD HEMATOLOGY ORDERABLES Performing Organization Address City/State/[place] [address] (ABNORMAL) APTT (07/07/2017 5:15 AM EST) P athologist Signature PTT 69 (H) 25 - 35 sec [facility] Comment: The recommended therapeutic range for fu ll dose, unfractionated heparin at [facility] is 80 ? 114 seconds. The use [...] Address City/State/ZIP Code Phon e Number [address] Magnesium (07/07/2017 5:15 AM EST) athologist Signature Magnesium 0.94 0.69 - 1.07 [facility] mmol/L [facility] Specimen Anatomical Collection Method Collection Time Receive d Time (Source) Location / / Volume Laterality Blood specimen 07/07/2017 5:15 AM 017 5:34 (specimen) EST AM EST Resulting Agency Comment Spec In Lab Daphne Shahid MD CHEMISTRY ORDERABLES Performing Organization Address City/[facility] Code Phon e Number [address] (ABNORMAL) Basic Metabolic Panel (non-fasting) (07/07/2017 5:15 AM EST) athologist Signature Glucose Lvl 203 (H) 65 - 199 [facility] mg/dL [facility] Comment: Diabetes: [...] [facility] Estimated GFR >60 >=60 [facility] Comment: The reported eGFR should be multiplied b y 1.2 for patients. The MDRD is not an appropriate measure o f renal function for patients with body mass extremes or in patients with acute kidney failure. http://GOSO/DHnkdep http://GOSO/DHMCnkf Specimen Anatomical Collection Method Collection Time Receive d Time (Source) Location / / Volume Laterality Blood specimen 07/07/2017 5:15 AM 017 5:34 (specimen) EST AM EST Resulting Agency Comment Spec In Lab Daphne Shahid MD CHEMISTRY ORDERABLES Performing Organization Address City/State/[place] [address] (ABNORMAL) Cardiac Enzymes (LEB/CGP) (07/07/2017 5:15 AM EST) P athologist Signature Troponin-T 2.07 (H) 0.00 [facility] ng/mL [facility] Comment: The 99th percentile for [...] additional sample may be indicated. Reference: Third [place] Definition of Myocardial Infarction. Journal of the [employer] 2012;60:1581-98 CK, Total 88 0 - 200 unit/L [facility] Specimen Anatomical Collection Method Collection Time Receive d Time (Source) Location / / Volume Laterality Blood specimen 07/07/2017 5:15 AM 017 5:34 (specimen) EST AM EST Resulting Agency Comment Spec In Lab Daphne Shahid MD CHEMISTRY ORDERABLES Performing Organization Address City/State/ZIP Code Phon e Number [address] POCT Glucose (07/07/2017 5:01 AM EST) athologist Signature POC Glucose 182 65 - 199 [facility] mg/dL [facility] Comment: Supplemental [...] Address City/State/ZIP Code Phon e Number [address] POCT Glucose (07/07/2017 4:08 AM EST) athologist Signature POC Glucose 199 65 - 199 [facility] mg/dL [facility] Comment: [...] Address City/State/ZIP Code Phon e Number [address] POCT Glucose (07/07/2017 3:03 AM EST) athologist Signature POC Glucose 188 65 - 199 [facility] mg/dL [facility] Comment: [...] City/[facility]/[place] [address] (ABNORMAL) POCT Glucose (07/07/2017 2:08 AM EST) athologist Signature POC Glucose 200 (H) 65 - 199 [facility] mg/dL [facility] Comment: [...] City/[facility]/[place] [address] (ABNORMAL) POCT Glucose (07/07/2017 1:31 AM EST) athologist Signature POC Glucose 209 (H) 65 - 199 [facility] mg/dL [facility] Comment: [...] City/[facility]/[place] [address] XR Chest PA or [...] 65 - 199 [facility] mg/dL [facility] Comment: Supplemental ranges: <140 mg/dL before meals <180 mg/dL all other times of the day Specimen Anatomical Collection Method Collection Time Receive d Time (Source) Location / / Volume Laterality Blood specimen 07/07/2017 12:07 7 (specimen) AM EST 12:07 AM EST Daphne Shahid MD POINT OF CARE TEST ORDERABLE S Performing Organization Address City/State/[place] [address] (ABNORMAL) APTT (07/07/2017 12:00 AM EST) athologist Signature PTT 103 (H) 25 - 35 sec [facility] Comment: The recommended therapeutic range for fu ll dose, unfractionated heparin at [facility] is 80 ? 114 seconds. The use [...] Address City/State/ZIP Code Phon e Number [address] POCT Glucose (07/06/2017 9:55 PM EST) athologist Signature POC Glucose 109 65 - 199 [place] RYAN mg/dL [facility] Comment: [...] City/[facility]/ZIP Code Phon e Number [address] POCT Glucose (07/06/2017 9:04 PM EST) athologist Signature POC Glucose 120 65 - 199 [place] RYAN mg/dL [facility] Comment: [...] City/[facility]/ZIP Code Phon e Number [address] POCT Glucose (07/06/2017 7:45 PM EST) athologist Signature POC Glucose 158 65 - 199 [place] RYAN mg/dL [facility] Comment: [...] City/[facility]/[place] [address] Potassium (07/06/2017 7:40 PM EST) athologist Signature Potassium 3.9 3.5 - 5.0 [facility] mmol/L [facility] Comment: Please note: ??Patients with [...] City/[facility]/[place] [address] (ABNORMAL) Cardiac Enzymes (LEB/CGP) (07/06/2017 7:40 PM EST) athologist Signature Troponin-T 2.27 (H) 0.00 - [place] RYAN 0.00 ng/mL [facility] Comment: The 99th percentile for [...] additional sample may be indicated. Reference: Third [place] Definition of Myocardial Infarction. Journal of the [employer] 2012;60:1581-98 CK, Total 93 0 - 200 unit/L [facility] Specimen Anatomical Collection Method Collection Time Receive d Time (Source) Location / / Volume Laterality Blood specimen 07/06/2017 7:40 PM 017 7:52 (specimen) EST PM EST Resulting Agency Comment Spec In Lab Daphne Shahid MD CHEMISTRY ORDERABLES Performing Organization Address City/[facility]/[place] [address] (ABNORMAL) POCT Glucose (07/06/2017 7:13 PM EST) P athologist Signature POC Glucose 200 (H) 65 - 199 [facility] mg/dL [facility] Comment: Supplemental [...] City/[facility]/[place] [address] (ABNORMAL) APTT (07/06/2017 6:15 PM EST) P athologist Signature PTT 94 (H) 25 - 35 sec [facility] Comment: The recommended therapeutic range for fu ll dose, unfractionated heparin at [facility] is 80 ? 114 seconds. The use [...] City/[facility]/[place] [address] (ABNORMAL) POCT Glucose (07/06/2017 6:03 PM EST) athologist Signature POC Glucose 236 (H) 65 - 199 [place] mg/dL [facility] Comment: [...] City/[facility]/[place] [address] (ABNORMAL) POCT Glucose (07/06/2017 5:01 PM EST) athologist Signature POC Glucose 235 (H) 65 - 199 [place] mg/dL [facility] Comment: [...] City/[facility]/[place] [address] (ABNORMAL) POCT Glucose (07/06/2017 4:06 PM EST) athologist Signature POC Glucose 202 (H) 65 - 199 [place] mg/dL [facility] Comment: [...] Address City/State/ZIP Code Phon e Number [address] POCT Glucose (07/06/2017 2:59 PM EST) athologist Signature POC Glucose 178 65 - 199 [facility] mg/dL [facility] Comment: Supplemental [...] City/[facility]/[place] [address] (ABNORMAL) Cardiac Enzymes (LEB/CGP) (07/06/2017 2:10 PM EST) athologist Signature Troponin-T 2.34 (H) 0.00 - [place] 0.00 ng/mL [facility] Comment: The 99th percentile for [...] additional sample may be indicated. Reference: Third [place] Definition of Myocardial Infarction. Journal of the [place] [employer] 2012;60:1581-98 CK, Total 101 0 - 200 unit/L [facility] Specimen Anatomical Collection Method Collection Time Receive d Time (Source) Location / / Volume Laterality Blood specimen 07/06/2017 2:10 PM 017 2:26 (specimen) EST PM EST Resulting Agency Comment Spec In Lab Daphne Shahid MD CHEMISTRY ORDERABLES Performing Organization Address [facility] Phon e Number [address] POCT Glucose (07/06/2017 2:08 PM EST) P athologist Signature POC Glucose 192 65 - 199 [facility] mg/dL [facility] Comment: Supplemental [...] City/[facility]/[place] [address] POCT Glucose (07/06/2017 1:04 PM EST) P athologist Signature POC Glucose 162 65 - 199 [facility] mg/dL [facility] Comment: Supplemental [...] City/[facility]/[place] [address] [facility] [address] POCT Glucose (07/06/2017 12:05 PM EST) P athologist Signature POC Glucose 196 65 - 199 [facility] mg/dL [facility] Comment: Supplemental [...] City/[facility]/ZIP Code Phon e Number [address] EKG 12 Lead (07/06/2017 12:00 PM EST) Component Value Ref Range Test Analysis Performed Pathologis t Method Time At Signature Ventricular rate 91 BPM MUSE SYSTEM Atrial Rate 91 BPM MUSE SYSTEM P-R Interval 140 ms MUSE SYSTEM QRS Duration 94 ms MUSE SYSTEM Q-T Interval 394 ms MUSE SYSTEM QTC Calculated 484 ms MUSE SYSTEM (Bezet) Calculated P [place] 36 degrees MUSE SYSTEM Calculated R [place] -19 degrees MUSE SYSTEM Calculated T [place] 104 degrees MUSE SYSTEM INTERPRETATION Normal sinus rhythm MUSE SYSTEM 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) ST & T wave abnormality, consider lateral ischemia Abnormal ECG When compared with ECG of 05-JUL-2017 20:39, No significant change was found Confirmed by MD Luci, Taurus Braun ([id number]) on 07/06/2017 5:07:33 PM Specimen Anatomical Collection [...] City/[facility]/[place] [address] Antibody screen (07/06/2017 12:00 PM EST) Patholo gist Method Time Signature Ab Screen Negative [facility] LABORATORY Expires at 07/09/2017 [facility] [id number] on: [facility] Specimen Anatomical Collection Method Collection Time Receive d Time (Source) Location / / Volume Laterality Blood specimen 07/06/2017 12:00 7 (specimen) PM EST 12:24 PM EST Resulting Agency Comment Spec In Lab Daphne Shahid MD BLOOD BANK ORDERABLES Performing Organization Address City/[facility]/[place] [address] ABO/Rh Typing (07/06/2017 12:00 [...] City/[facility]/[place] [address] Prothrombin Time (07/06/2017 11:24 [...] City/[facility]/ZIP Code Phon e Number [address] (ABNORMAL) APTT (07/06/2017 11:24 AM EST) P athologist Signature PTT 52 (H) 25 - 35 sec [facility] Comment: The recommended therapeutic range for fu ll dose, unfractionated heparin at [facility] is 80 ? 114 seconds. The use [...] City/[facility]/[place] [address] POCT Glucose (07/06/2017 11:02 AM EST) P athologist Signature POC Glucose 187 65 - 199 [facility] mg/dL [facility] Comment: Supplemental [...] City/[facility]/[place] [address] POCT Glucose (07/06/2017 10:18 AM EST) P athologist Signature POC Glucose 193 65 - 199 [place] mg/dL [facility] Comment: Supplemental ranges: <140 mg/dL before meals <180 mg/dL all other times of the day Specimen Anatomical Collection Method Collection Time Receive d Time (Source) Location / / Volume Laterality Blood specimen 07/06/2017 10:18 7 (specimen) AM EST 10:18 AM EST Daphne Shahid MD POINT OF CARE TEST ORDERABLE S Performing Organization Address City/State/[place] [address] POCT Glucose (07/06/2017 9:25 AM EST) athologist Signature POC Glucose 182 65 - 199 [facility] Comment: [...] Organization Address City/State/[place] [address] (ABNORMAL) Cardiac Enzymes (LEB/CGP) (07/06/2017 8:10 AM EST) athologist [employer] Troponin-T 2.26 (H) 0.00 - [place] 0.00 ng/mL [facility] Comment: The 99th percentile for [...] additional sample may be indicated. Reference: Third [place] Definition of Myocardial Infarction. Journal of the [place] College [employer]iology 2012;60:1581-98 CK, Total 124 0 - 200 unit/L [facility] Specimen Anatomical Collection Method Collection Time Receive d Time (Source) Location / / Volume Laterality Blood specimen 07/06/2017 8:10 AM 017 8:23 (specimen) EST AM EST Resulting Agency Comment Spec In Lab Daphne Shahid MD CHEMISTRY ORDERABLES Performing Organization Address City/[facility]/ZIP Code Phon e Number [address] Magnesium (07/06/2017 8:10 AM EST) P athologist Signature Magnesium 0.84 0.69 - 1.07 [facility] mmol/L [facility] Specimen Anatomical Collection Method Collection Time Receive d Time (Source) Location / / Volume Laterality Blood specimen 07/06/2017 8:10 AM 017 8:21 (specimen) EST AM EST Resulting Agency Comment Spec In Lab Daphne Shahid MD CHEMISTRY ORDERABLES Performing Organization Address City/[facility] [place] [address] (ABNORMAL) Basic Metabolic Panel (non-fasting) (07/06/2017 8:10 AM EST) P athologist Signature Glucose Lvl 199 65 - 199 [facility] mg/dL [facility] Comment: Diabetes: [...] [facility] Estimated GFR >60 >=60 [facility] Comment: The reported eGFR should be multiplied b y 1.2 for patients. The MDRD is not an appropriate measure o f renal function for patients with body mass extremes or in patients with acute kidney failure. http://GOSO/DHnkdep http://GOSO/DHnkf Specimen Anatomical Collection Method Collection Time Receive d Time (Source) Location / / Volume Laterality Blood specimen 07/06/2017 8:10 AM 017 8:21 (specimen) EST AM EST Resulting Agency Comment Spec In Lab Daphne Shahid MD CHEMISTRY ORDERABLES Performing Organization Address City/[facility]/[place] [address] POCT Glucose (07/06/2017 7:34 AM EST) P athologist Signature POC Glucose 198 65 - 199 [facility] mg/dL [facility] Comment: Supplemental [...] City/[facility]/[place] [address] POCT Glucose (07/06/2017 7:03 AM EST) P athologist Signature POC Glucose 181 65 - 199 [place] mg/dL [facility] Comment: [...] Address City/State/ZIP Code Phon e Number [address] XR Chest PA or [...] 65 - 199 [facility] mg/dL [facility] Comment: Supplemental ranges: <140 mg/dL before meals <180 mg/dL all other times of the day Specimen Anatomical Collection Method Collection Time Receive d Time (Source) Location / / Volume Laterality Blood specimen 07/06/2017 6:21 AM 017 6:21 (specimen) EST AM EST Daphne Shahid MD POINT OF CARE TEST ORDERABLE S Performing Organization Address City/State/[place] [address] POCT Glucose (07/06/2017 5:08 AM EST) athologist Signature POC Glucose 154 65 - 199 [facility] mg/dL [facility] Comment: Supplemental ranges: <140 mg/dL before meals <180 mg/dL all other times of the day Specimen Anatomical Collection Method Collection Time Receive d Time (Source) Location / / Volume Laterality Blood specimen 07/06/2017 5:08 AM 017 5:08 (specimen) EST AM EST Daphne Shahid MD POINT OF CARE TEST ORDERABLE S Performing Organization Address City/State/[place] [address] POCT Glucose (07/06/2017 4:05 AM EST) athologist Signature POC Glucose 142 65 - 199 [facility] mg/dL [facility] Comment: Supplemental [...] City/[facility]/ZIP Code Phon e Number [address] POCT Glucose (07/06/2017 3:00 AM EST) athologist [facility] POC Glucose 116 65 - 199 [facility] mg/dL [facility] Comment: Supplemental [...] City/[facility]/ZIP Code Phon e Number [address] Potassium (07/06/2017 2:20 AM EST) athologist [facility] Potassium 3.9 3.5 - 5.0 [facility] mmol/L [facility] Comment: Please note: ??Patients with [...] City/[facility]/ZIP Code Phon e Number [address] Differential, Automated (07/06/2017 2:20 AM EST) athologist [facility] Neutrophils % 72.9 % [facility] Neutr Abs (ANC) 5.53 1.70 - [facility] 6.10 [facility] x10(3)/[facility] LABORATORY Lymphocytes % 16.4 % [facility] Lymphocytes Abs 1.2 0.9 - 3.2 [facility] x10(3)/[facility] LABORATORY Monocytes % 9.4 % [facility] Monocyte Abs 0.7 0.3 - 0.9 [facility] x10(3)/[facility] LABORATORY Eosinophils % 0.5 % [facility] Eosinophils Abs 0.0 0.0 - 0.4 [facility] x10(3)/[facility] LABORATORY Basophils % 0.4 % [facility] Basophils Abs 0.0 0.0 - 0.1 [facility] x10(3)/[facility] LABORATORY Immature [...] 0.00 - 0.04 x10(3)/[facility] MAR Y [facility] Specimen Anatomical Collection Method Collection Time Receive d Time (Source) Location / / Volume Laterality Blood specimen 07/06/2017 2:20 AM 017 2:33 (specimen) EST AM EST Resulting Agency Comment Spec In Lab Daphne Shahid MD HEMATOLOGY ORDERABLES Performing Organization Address City/State/[place] [address] (ABNORMAL) Hemogram (07/06/2017 2:20 AM EST) Analysis Performed At Patho logist Time Signature WBC 7.6 4.0 - 9.5 [facility] x10(3)/[facility] LABORATORY RBC 4.52 (L) 4.58 - [facility] 5.54 [facility] x10(6)/[facility] LABORATORY Hemoglobin 13.4 (L) 13.7 - [place] 16.5 gm/dL [facility] Hematocrit 39.7 (L) 40.5 - [place] 48.5 % [facility] MCV 87.8 82.9 - [facility] RYAN 93.[address] [facility] LABORATORY MCH 29.6 27.5 - [place] 32.1 pg [facility] MCHC 33.8 32.0 - [place] 35.7 gm/dL [facility] Platelets 189 145 - 357 [facility] x10(3)/[facility] LABORATORY RDWSD 45.6 (H) 36.0 - [facility] 45.[address] [facility] LABORATORY RDWCV 14.3 (H) 11.4 - [facility] RYAN 13.8 % [facility] MPV 9.1 7.6 - 12.9 [facility] LABORATORY nRBC % Auto 0.0 % [facility] nRBC Abs Auto 0.000 0.000 - [facility] RYAN 0.000 [facility] x10(3)/[facility] LABORATORY Specimen Anatomical Collection Method Collection Time Receive d Time (Source) Location / / Volume Laterality Blood specimen 07/06/2017 2:20 AM 017 2:33 (specimen) EST AM EST Resulting Agency Comment Spec In Lab Daphne Shahid MD HEMATOLOGY ORDERABLES Performing Organization Address City/State/[place] [address] (ABNORMAL) APTT (07/06/2017 2:20 AM EST) P athologist Signature PTT 52 (H) 25 - 35 sec [facility] Comment: The recommended therapeutic range for fu ll dose, unfractionated heparin at [facility] is 80 ? 114 seconds. The use [...] Address City/State/ZIP Code Phon e Number [address] POCT Glucose (07/06/2017 2:20 AM EST) athologist Signature POC Glucose 115 65 - 199 [facility] mg/dL [facility] Comment: [...] Organization Address City/State/[place] [address] (ABNORMAL) Cardiac Enzymes (LEB/CGP) (07/06/2017 2:20 AM EST) athologist Signature Troponin-T 2.13 (H) 0.00 - [place] 0.00 ng/mL [facility] Comment: The 99th percentile for [...] additional sample may be indicated. Reference: Third [place] Definition of Myocardial Infarction. Journal of the [place] [employer]iology 2012;60:1581-98 CK, Total 129 0 - 200 unit/L [facility] Specimen Anatomical Collection Method Collection Time Receive d Time (Source) Location / / Volume Laterality Blood specimen 07/06/2017 2:20 AM 017 2:33 (specimen) EST AM EST Resulting Agency Comment Spec In Lab Daphne Shahid MD CHEMISTRY ORDERABLES Performing Organization Address City/State/[place] [address] (ABNORMAL) Hemoglobin A1c (07/06/2017 [...] Additional resources are available on [facility] website. Macario HAMMOND, Ruthann J, Deysi R, et al. ??Tr anslating the A1C assay into estimated average glucose values. ??Diabetes Care 2008:31(8):6617-4248. Specimen Anatomical Collection Method Collection Time Receive d Time (Source) Location / / Volume Laterality Blood specimen 07/06/2017 2:20 AM 017 2:34 (specimen) EST AM EST Resulting Agency Comment Spec In Lab Daphne Shahid MD CHEMISTRY ORDERABLES Performing Organization Address City/State/[place] [address] (ABNORMAL) Lipid Panel (07/06/2017 2:20 AM EST) [facility] Method Time Signature Chol, Total 150 <=239 [place] mg/dL [facility] Triglycerides 129 <=199 [facility] mg/dL [facility] HDL 32 (L) >=40 [facility] mg/dL [facility] LDL Cholesterol 92 <=190 [place] mg/dL [facility] Chol/HDL Ratio 4.7 ratio [facility] Lipid See Note [place] Interpretation [facility] Comment: Lipid management should be guided by a p atient? s ASCVD risk, goals and preferences. ACC/AHA Guidelines recommend high intens ity statin if clinical ASCVD or LDL greater than or equal to 190 mg/dL. http://tinyurl.com/YKB-DCS-Mnyurjpsl Adults aged 40-75 with LDL 70-189 mg/dL should have their 10 year ASCVD risk estimated with the ACC/AHA ASCVD risk es timator http://tools.acc.org/NGIRM-Rola-Rnbwucsj r/ Statin should be discussed if risk [...] City/[facility]/ZIP Code Phon e Number [address] POCT Glucose (07/06/2017 1:09 AM EST) athologist Signature POC Glucose 121 65 - 199 [facility] mg/dL [facility] Comment: [...] City/[facility]/[place] [address] POCT Glucose (07/06/2017 12:06 AM EST) athologist Signature POC Glucose 147 65 - 199 [facility] RYAN mg/dL [facility] Comment: [...] Organization Address City/State/[place] [address] (ABNORMAL) POCT Glucose (07/05/2017 10:56 PM EST) athologist Signature POC Glucose 200 (H) 65 - 199 [facility] mg/dL [facility] Comment: [...] Organization Address City/State/[place] [address] (ABNORMAL) POCT Glucose (07/05/2017 10:05 PM EST) athologist Signature POC Glucose 225 (H) 65 - 199 [facility] mg/dL [facility] Comment: [...] Organization Address City/State/[place] [address] (ABNORMAL) POCT Glucose (07/05/2017 9:02 PM EST) athologist Signature POC Glucose 301 (H) 65 - 199 [facility] mg/dL [facility] Comment: [...] Organization Address City/State/[place] [address] XR Chest PA or [...] ms MUSE SYSTEM (Bezet) Calculated P [place] 50 degrees MUSE SYSTEM Calculated R [place] -28 degrees MUSE SYSTEM Calculated T [place] 90 degrees MUSE SYSTEM INTERPRETATION Sinus tachycardia [...] (ABNORMAL) Differential, Automated (07/05/2017 8:20 PM EST) [facility] gist Method Time Signature Neutrophils % 88.4 % [facility] Neutr Abs (ANC) 9.08 (H) 1.70 - [facility] 6.10 [facility] x10(3)/[facility] LABORATORY Lymphocytes % 7.0 % [facility] Lymphocytes Abs 0.7 (L) 0.9 - 3.2 [facility] x10(3)/[facility] LABORATORY Monocytes % 3.7 % [facility] Monocyte Abs 0.4 0.3 - 0.9 [facility] x10(3)/[facility] LABORATORY Eosinophils % 0.1 % [facility] Eosinophils Abs 0.0 0.0 - 0.4 [facility] x10(3)/[facility] LABORATORY Basophils % 0.2 % [facility] Basophils Abs 0.0 0.0 - 0.1 [facility] x10(3)/[facility] LABORATORY Immature Gran [...] Organization Address City/State/[place] [address] (ABNORMAL) Hemogram (07/05/2017 8:20 PM EST) Analysis Performed At Patho logist Time Signature WBC 10.3 (H) 4.0 - 9.5 [facility] RYAN x10(3)/[facility] LABORATORY RBC 4.64 4.58 - [place] 5.54 [facility] x10(6)/[facility] LABORATORY Hemoglobin 14.1 13.7 - [place] 16.5 gm/dL [facility] Hematocrit 40.8 40.5 - [facility] RYAN 48.5 % [facility] MCV 87.9 82.9 - [facility] RYAN 93.[address] [facility] LABORATORY MCH 30.4 27.5 - [place] 32.1 pg [facility] MCHC 34.6 32.0 - [facility] RYAN 35.7 gm/dL [facility] Platelets 204 145 - 357 [facility] x10(3)/[facility] LABORATORY RDWSD 46.1 (H) 36.0 - [facility] RYAN 45.[address] [facility] LABORATORY RDWCV 14.5 (H) 11.4 - [facility] RYAN 13.8 % [facility] MPV 9.7 7.6 - 12.9 [facility] nRBC % Auto 0.0 % [facility] nRBC Abs Auto 0.000 0.000 - [facility] RYAN 0.000 [facility] x10(3)/[facility] LABORATORY Specimen Anatomical Collection Method Collection Time Receive d Time (Source) Location / / Volume Laterality Blood specimen 07/05/2017 8:20 PM 017 8:27 (specimen) EST PM EST Resulting Agency Comment Spec In Lab Daphne Shahid MD HEMATOLOGY ORDERABLES Performing Organization Address City/State/ZIP Code Phon e Number [place] [address] APTT (07/05/2017 8:20 PM EST) athologist Signature PTT 32 25 - 35 sec [facility] Comment: The recommended therapeutic range for fu ll dose, unfractionated heparin at [facility] is 80 ? 114 seconds. The use [...] Organization Address City/State/[place] [address] (ABNORMAL) Cardiac Enzymes (LEB/CGP) (07/05/2017 8:20 PM EST) athologist [facility] Troponin-T 2.11 (H) 0.00 - [facility] 0.00 ng/mL [facility] Comment: The 99th percentile for [...] additional sample may be indicated. Reference: Third [place] Definition of Myocardial Infarction. Journal of the [place] [employer] 2012;60:1581-98 CK, Total 149 0 - 200 unit/L [facility] Specimen Anatomical Collection Method Collection Time Receive d Time (Source) Location / / Volume Laterality Blood specimen 07/05/2017 8:20 PM 017 8:27 (specimen) EST PM EST Resulting Agency Comment Spec In Lab Daphne Shahid MD CHEMISTRY ORDERABLES Performing Organization Address City/[facility]/ZIP [facility] [place] [address] (ABNORMAL) Magnesium (07/05/2017 8:20 PM EST) P athologist Signature Magnesium 0.68 (L) 0.69 - 1.07 [facility] mmol/L [facility] Specimen Anatomical Collection Method Collection Time Receive d Time (Source) Location / / Volume Laterality Blood specimen 07/05/2017 8:20 PM 017 8:27 (specimen) EST PM EST Resulting Agency Comment Spec In Lab Daphne Shahid MD CHEMISTRY ORDERABLES Performing Organization Address City/[facility]/[place] [address] (ABNORMAL) Basic Metabolic Panel (non-fasting) (07/05/2017 8:20 PM EST) P athologist Signature Glucose Lvl 321 (H) 65 - 199 [facility] mg/dL [facility] Comment: Diabetes: [...] [facility] Estimated GFR >60 >=60 [facility] Comment: The reported eGFR should be multiplied b y 1.2 for patients. The MDRD is not an appropriate measure o f renal function for patients with body mass extremes or in patients with acute kidney failure. http://GOSO/DHnkdep http://GOSO/DHMCnkf Specimen Anatomical Collection Method Collection Time Receive d Time (Source) Location / / Volume Laterality Blood specimen 07/05/2017 8:20 PM 017 8:27 (specimen) EST PM EST Resulting Agency Comment Spec In Lab Daphne Shahid MD CHEMISTRY ORDERABLES Performing Organization Address City/State/[place] [address] (ABNORMAL) POCT Glucose (07/05/2017 7:32 PM EST) P athologist Signature POC Glucose 296 (H) 65 - 199 [facility] mg/dL [facility] Comment: Supplemental ranges: <140 mg/dL before meals <180 mg/dL all other times of the day Specimen Anatomical Collection Method Collection Time Receive d Time (Source) Location / / Volume Laterality Blood specimen 07/05/2017 7:32 PM 017 7:32 (specimen) EST PM EST Daphne Shahid MD POINT OF CARE TEST ORDERABLE S Performing Organization Address City/State/[place] [address] CARDIAC CATHETERIZATION (07/05/2017 6:47 PM EST) Anatomical Region Laterality Modality Other Specimen (Source) Anatomical Location Collection Method / Collectio n Time Received Time / Laterality Volume Narrative 07/05/2017 7:27 PM EST ?[facility] ? Cardiac Cathete rization/Intervention Report ? Patient Name: Gregory Hoang ? Procedure Date: 07/05/2017 ? A #: [id number] ? Primary Physician: Clarisa, Jet T ? Case #: [id number] ? File Name: [id number] ? Catheterization Order Number: [id number] ? [facility] ? Final Report [place], [place] ? Patient Name: ? Gregory Natalya ?ID#: ?[id number] ? : ?1945 ? Procedure Date: ? [...] presented with: non -STEMI (w/i 7 days). [place] ?[employer] angina c lass was IV. [...] be different from the original. [facility] Cardiac Catheterization/Intervention Re port Patient Name: Gregory Hoang Procedure Date: 07/05/2017 A #: [id number] Primary Physician: Jet Mckenna Case #: [id number] File Name: [id number] Catheterization Order Number: [id number] [facility] Final Report [place], [place] Patient Name: Gregory Hoang ID#: [id number] : 1945 Procedure Date: July 05, [...] presented with: non-STEMI ( w/i 7 days). [place] [employer] angina class was IV. No [...] Mccollum ? (Age): 1945(72y) Med Rec#: ? [id number] ?Sex: ?M ? Site Loc: ? [facility] ?Ht / Wt: ??173(cm)/86(kg) Pt. Loc: ?CCU ? BSA: ?2 Study Date: ?? 07/05/2017 ?Pt. Type: Inpatient Tape: ? Referring: Daphne Shahid ([id number]) Referring: MANDA ALCANTAR Reading: Blade Preston ([id number]) Clinical Research Spec: Dayami Paula BA, [facility] Diagnosis: *ICD-10-PCS Non-ST elevation (NSTEMI) m yocardial [...] E-wave Vmax ?0.8 ?m/sec ? MV deceleration [id number] ?msec ? MV A-wave Vmax ?0.8 ?m/sec [...] ? Mid-Inferior ?Akinetic ? Mid-Inferoseptal ?Hypokinetic ? [place]-Septal ? Akinetic ? [place]-Anterior ? Hypokinetic ? [place]-Lateral ?Hypokinetic ? [place]-Inferior ? Akinetic ? [place]-Tip ?Akinetic ? This report has been electronically sign ed by: _ Blade Preston MD ? 07/06/2017 08 :53:15 Images reviewed and interpretation [facility] Cardiac Ultrasound Laboratory Procedure Note Blade Preston MD - 07/06/2017Formatt ing of this note might be different from the original. Procedure: Transthoracic Echocardiogram Patient: NATALYA MCBRIDE(Age): [birth year]72y) Med Rec#: [id number] Sex: M Site Loc: [facility] Ht / Wt: 173(cm)/86(kg) Pt. Loc: CCU BSA: 2 Study Date: 07/05/2017 Pt. Type: Inpatie nt Tape: Referring: Daphne Shahid ([id number]) Referring: MANDA ALCANTAR Reading: Blade Preston ([id number]) Clinical Research Spec: Dayami Paula BA, [facility] Diagnosis: *ICD-10-PCS Non-ST elevation (NSTEMI) m yocardial [...] MV E-wave Vmax 0.8 m/sec MV deceleration [id number] msec MV A-wave Vmax 0.8 m/sec MV [...] Hypokinetic Mid-Posterolateral Hypokinetic Mid-Inferior Akinetic Mid-Inferoseptal Hypokinetic [place]-Septal Akinetic [place]-Anterior Hypokinetic [place]-Lateral Hypokinetic [place]-Inferior Akinetic [place]-Tip Akinetic This report has been electronically sign ed by: _ Blade Preston MD 07/06/2017 08:53:15 Images reviewed and interpretation ver ied [facility] Cardiac Ultrasound Laboratory Daphne Shahid MD ECHO ORDERABLES Differential, Automated (07/05/2017 4:55 PM EST) athologist Signature Neutrophils % 77.0 % [facility] Neutr Abs (ANC) 5.26 1.70 - [facility] 6.10 [facility] x10(3)/[facility] LABORATORY Lymphocytes % 13.3 % [facility] Lymphocytes Abs 0.9 0.9 - 3.2 [facility] x10(3)/[facility] LABORATORY Monocytes % 8.2 % [facility] Monocyte Abs 0.6 0.3 - 0.9 [facility] x10(3)/[facility] LABORATORY Eosinophils % 0.7 % [facility] Eosinophils Abs 0.0 0.0 - 0.4 [facility] x10(3)/[facility] LABORATORY Basophils % 0.4 % [facility] Basophils Abs 0.0 0.0 - 0.1 [facility] x10(3)/[facility] LABORATORY Immature [...] 0.00 - 0.04 x10(3)/[facility] Specimen Anatomical Collection Method Collection Time Receive d Time (Source) Location / / Volume Laterality Blood specimen 07/05/2017 4:55 PM 017 5:24 (specimen) EST PM EST Resulting Agency Comment Spec In Lab Daphne Shahid MD HEMATOLOGY ORDERABLES Performing Organization Address City/State/[place] [address] (ABNORMAL) Hemogram (07/05/2017 4:55 PM EST) Analysis Performed At Patho logist Time Signature WBC 6.8 4.0 - 9.5 [facility] x10(3)/[facility] LABORATORY RBC 4.67 4.58 - [facility] 5.54 [facility] x10(6)/[facility] LABORATORY Hemoglobin 14.0 13.7 - [place] 16.5 gm/dL [facility] Hematocrit 41.0 40.5 - [place] 48.5 % [facility] MCV 87.8 82.9 - [facility] 93.[address] [facility] LABORATORY MCH 30.0 27.5 - [place] 32.1 pg [facility] MCHC 34.1 32.0 - [place] 35.7 gm/dL [facility] Platelets 197 145 - 357 [facility] x10(3)/[facility] LABORATORY RDWSD 46.4 (H) 36.0 - [place] 45.0 [facility] LABORATORY RDWCV 14.5 (H) 11.4 - [place] 13.8 % [facility] MPV 9.7 7.6 - 12.9 [facility] LABORATORY nRBC % Auto 0.0 % [facility] nRBC Abs Auto 0.000 0.000 - [place] 0.000 [facility] x10(3)/[facility] LABORATORY Specimen Anatomical Collection Method Collection Time Receive d Time (Source) Location / / Volume Laterality Blood specimen 07/05/2017 4:55 PM 017 5:24 (specimen) EST PM EST Resulting Agency Comment Spec In Lab Daphne Shahid MD HEMATOLOGY ORDERABLES Performing Organization Address City/State/[place] [address] (ABNORMAL) Cardiac Enzymes (LEB/CGP) (07/05/2017 4:55 PM EST) P athologist Signature Troponin-T 1.69 (H) 0.00 - [place] 0.00 ng/mL [facility] Comment: The 99th percentile for [...] additional sample may be indicated. Reference: Third [place] Definition of Myocardial Infarction. Journal of the [place] [employer] 2012;60:1581-98 CK, Total 191 0 - 200 unit/L [facility] Specimen Anatomical Collection Method Collection Time Receive d Time (Source) Location / / Volume Laterality Blood specimen 07/05/2017 4:55 PM 017 5:56 (specimen) EST PM EST Resulting Agency Comment Spec In Lab Daphne Shahid MD CHEMISTRY ORDERABLES Performing Organization Address City/[facility]/[place] [address] (ABNORMAL) pro-Brain Natriuretic Peptide (07/05/2017 4:55 PM EST) P athologist Signature ProBNP 1,598 (H) <=125 [facility] pg/mL [facility] Specimen Anatomical Collection Method Collection Time Receive d Time (Source) Location / / Volume Laterality Blood specimen 07/05/2017 4:55 PM 017 5:24 (specimen) EST PM EST Resulting Agency Comment Spec In Lab Daphne Shahid MD CHEMISTRY ORDERABLES Performing Organization Address City/State/[place] [address] Magnesium (07/05/2017 4:55 PM EST) P athologist Signature Magnesium 0.78 0.69 - 1.07 [facility] mmol/L [facility] Specimen Anatomical Collection Method Collection Time Receive d Time (Source) Location / / Volume Laterality Blood specimen 07/05/2017 4:55 PM 017 5:24 (specimen) EST PM EST Resulting Agency Comment Spec In Lab Daphne Shahid MD CHEMISTRY ORDERABLES Performing Organization Address City/State/[place] [address] (ABNORMAL) Basic Metabolic Panel (non-fasting) (07/05/2017 4:55 PM EST) P athologist Signature Glucose Lvl 230 (H) 65 - 199 [facility] mg/dL [facility] Comment: Diabetes: [...] [facility] Estimated GFR >60 >=60 [facility] Comment: The reported eGFR should be multiplied b y 1.2 for patients. The MDRD is not an appropriate measure o f renal function for patients with body mass extremes or in patients with acute kidney failure. http://MetaMed.Brandfitters/DHnkdep http://MetaMed.Brandfitters/DHMCnkf Specimen Anatomical Collection Method Collection Time Receive d Time (Source) Location / / Volume Laterality Blood specimen 07/05/2017 4:55 PM 017 5:24 (specimen) EST PM EST Resulting Agency Comment Spec In Lab Daphne Shahid MD CHEMISTRY ORDERABLES Performing Organization Address City/[facility]/[place] [address] (ABNORMAL) APTT (07/05/2017 4:55 PM EST) P athologist Signature PTT 41 (H) 25 - 35 sec [facility] Comment: The recommended therapeutic range for fu ll dose, unfractionated heparin at [facility] is 80 ? 114 seconds. The use [...] City/[facility]/[place] [address] (ABNORMAL) POCT Glucose (07/05/2017 4:53 PM EST) athologist Signature POC Glucose 208 (H) 65 - 199 [facility] mg/dL [facility] Comment: Supplemental [...] City/[facility]/[place] [address] EKG 12 Lead (07/05/2017 4:32 PM EST) Component Value Ref Range Test Analysis Performed Pathologis t Method Time At Signature Ventricular rate 97 BPM MUSE SYSTEM Atrial Rate 97 BPM MUSE SYSTEM P-R Interval 148 ms MUSE SYSTEM QRS Duration 96 ms MUSE SYSTEM Q-T Interval 364 ms MUSE SYSTEM QTC Calculated 462 ms MUSE SYSTEM (Bezet) Calculated P [place] 48 degrees MUSE SYSTEM Calculated R [place] -33 degrees MUSE SYSTEM Calculated T [place] 98 degrees MUSE SYSTEM INTERPRETATION Normal sinus [...] unspecified type of vessel, [place] or graft Cardiomyopathy, ischemic Other specified forms [...] dose on Wed07/07/17 at 2100, Until Discontinued, [place] teeth, Routine Given 07/08/2017 10:06 PM EST [...] or norepinephrine is ineffective. Call pager # [phone] if initiated. Rate/Dose Change 07/08/2017 7:01 PM [...] if phenyleprine and/or vasopressin ineffective.Call pager # [phone] if initiated., Routine Rate/Dose Change 07/09/2017 1:24 [...] 2.0 L/min/M2. Maximum volume 2 L. Call housekeeping/laundry supervisor for additional fluid orders: pager #[phone]. Rate/Dose Verify 07/08/2017 4:00 AM EST 100 [...] Provider: More Luther RN)2201 (Given - Provider: lAe Rangel, VAMSI) 0615 (Given - Provider: Ale [...] 2 tab let 2019 (Given - Provider: Ael Rangel RN) 2100 (Not Given - Provider: [...]
Routine documented in this encounter Care Teams Fitness And Wellness Instructor Relationship Specialty Start Date End Date Lovely Vicente MD PCP - General 04/16/[address] [place] [address] documented as of this encounter
--- OUTSIDE RECORDS SUMMARY | 2022-04-22 08:24 | XMS_ITS | Encounter Summary ---
:1945 Author Organization [facility] [place] [address] Care Team Providers Name Role Phone Lovely Vicente MD Primary Care Provider Encounter Details Date Type Department Care Team Description 07/08/2017 Orders Only [facility] [place] [address] Social History Tobacco Use Types Packs/Day [...] Dolan MD [facility] [place] [address] (Wo rk) 05/28/2022 Laboratory Appointment Lab 05/28/2022 Office Visit Cardiology Zulma Dolan [place] [facility] [place] [address] Liz Poole PA [facility] [place] [address] 06/10/2022 Office Visit Dermatology Laura Scherer MD [facility] ER [address] [place] [address] (Wo rk) documented as of this encounter [...] Mccollum ? (Age): 1945(72y) Med Rec#: ? [id number] ?Sex: ?M ? Site Loc: ? Ht / Wt: ??(cm)/ (kg) ? Pt. Loc: ? Study Date: ?? 07/07/2017 ?Pt. Type: Tape: ? Referring: Yuan Retana Reading: Yifan Perez MD ([id number]) Performing: Yifan Perez MD ([id number]) Diagnosis: SUMMARY: 1. Intraoperative AVELINO performed at the [facility] of Dr. Mike for the diagnosis [...] Mid-Inferior ?Hypokinetic ? Mid-Inferoseptal ?Hypokinetic ? [place]-Septal ? Hypokinetic ? [place]-Anterior ? Hypokinetic ? [place]-Lateral ?Hypokinetic ? [place]-Inferior ? Hypokinetic ? [place]-Tip ?Not Seen ? This report has been electronically sign ed by: _ Yifan Perez MD ? 07/08/2017 12 :25:18 Images reviewed and interpretation verif ied [facility] Cardiac Ultrasound Laboratory Procedure Note Yifan Perez MD - 07/08/2017Formatt ing of this note might be different from the original. Procedure: Transesophageal Echocardiogra m Patient: NATALYA MCBRIDE(Age): [birth year]72y) Med Rec#: [id number] Sex: M Site Loc: Ht / Wt: (cm)/ (kg) Pt. Loc: Study Date: 07/07/2017 Pt. Type: Tape: Referring: Yuan Retana Reading: Yifan Perez MD ([id number]) Performing: Yifan Perez MD ([id number]) Diagnosis: SUMMARY: 1. [facility] for the diagnosis and [...] Hypokinetic Mid-Posterolateral Hypokinetic Mid-Inferior Hypokinetic Mid-Inferoseptal Hypokinetic [place]-Septal Hypokinetic [place]-Anterior Hypokinetic [place]-Lateral Hypokinetic [place]-Inferior Hypokinetic [place]-Tip Not Seen This report has been electronically sign ed by: _ Yifan Perez MD 07/08/2017 12:25:18 Images reviewed and interpretation elvie hwang [facility] Cardiac Ultrasound Laboratory Unknown ECHO ORDERABLES documented in this encounter Visit Diagnoses Not on filedocumented in this encounter Care Teams Rpg Programmer Analyst Relationship Specialty Start Date End Date Lovely Vicente MD PCP - General 04/16/[address] [place] [address] documented as of this encounter
--- OUTSIDE RECORDS SUMMARY | 2022-04-22 08:25 | XMS_ITS | Encounter Summary ---
:1945 Author Organization [facility] Address [facility] [place] [address] Care Team Providers Name Role Phone Lovely Vicente MD Primary Care Provider Reason for Visit Auth/Cert Specialty Diagnoses / Procedures Referred By Contact Refer red To Contact Diagnoses STEMI (ST elevation myocardial infarction) NSTEMI STEMI Procedures CARDIAC CATHETERIZATION NAYE IPI Referral ID Status Reason Start Date Expiration Date Visits Requ ested Visits Authorized [id number] 1 1 Encounter Details Date Type Department Care Team Description 07/07/2017 Surgery Main Operating Room Yuan Webber, @ CABG, USING ARTERIAL Barbara Ocampo MD GRAFT;SINGLE ARTERIAL Hospital [facility] GRAFT (WRVU 33.75) [facility] [address] [place] [address] SURGERY [phone] [place], [place] [address] (Wo rk) Social [...] in this encounter Discharge Summaries Martha Teague, EARLY CHILDHOOD EDUCATOR AIDE - 07/14/2017 9:38 AM EST Inpatient - Discharge Summary Patient Name: Gregory Hoang Patient Age: 72 y.o. Birthdate: 1945 Language: Zambian Race: White Ethnicity: Not nor Admit Date: [...] , @ 1:20p Patient to follow-up with Cooper Helper/heart failure team in one week. An appointment will be made for you. You may call [phone] Patient to follow-up with Cardiac Surgery, Dr. Yuan Webber, in ~ 4 weeks with CXR, EKG. Inpatient Provider Contact Information: [facility] Section of Cardiac Surgery [facility] [address] FAX [phone] Discharge Diagnoses (Hospital Problems) Primary Diagnoses: CAD [...] 33.75) performed by Yuan Webber MD at [facility] OR ??? PRO CABG, ARTERY-VEIN, TWO N/A 07/07/2017 @CABG, TWO VENOUS GRAFTS & ARTERIAL GRAFT (WRVU 7.93) performed by uYan Webber MD at [facility] OR ??? PRO COLONOSCOPY, REMV LESN, SNARE 01/16/2014 COLONOSCOPY, POLYPECTOMY, REMOVAL LESION BY SNARE performed by Nohemi Jaimes MD at [facility] ENDOSCOPY ??? PRO ENDOSCOPY W/VIDEO-ASST VEIN HARVEST, CABG Right 07/07/2017 ENDOSCOPIC HARVEST VEIN(S) FOR CABG (WRVU 0.31) performed by Yuan Webber MD at [facility] OR ??? PRO THYROIDECTOMY 03/28/2013 THYROIDECTOMY, TOTAL OR COMPLETE performed by Manny Mcknight MD at [facility] OR Prior To Admission Medications Prescriptions Prior to Admission Medication Sig Dispense Refill Last Dose ??? levothyroxine (SYNTHROID) 175 mcg Tablet Take 1 tablet by mouth daily. 90 tablet 3 07/05/2017 [id number] ??? ascorbic acid, vitamin C, (VITAMIN C) [...] Hospital Course: Gregory Hoang was admitted to [facility] on 07/05/2017 via the Cardiology Service. During his hospital course, he was taken emergently to the labor relations specialist for an ongoing STEMI. An IABP [...] not take or discontinue any prescription or gmmo-kqq-uimauzh medications without asking your doctor or pharmacist [...] Yuan Webber and/or the Cardiac Surgery Physician Peer Counselor Team may be reached at . [...] Dr. Yuan Webber. You may use a Bandana Track or treadmill but avoid any pulling [...] friends, go to a movie, go to anabaptist, etc. Heavy activities: No hunting, skiing, jogging, snow shoveling, snowmobiling, lawn mowing, swimming, golf or tennis until after your return appointment with the surgeon. Do not ride motorcycles, trinket's tractors or horses. Avoid the use of [...] should resume a low fat, low cholesterol, [place] Heart Association Diet/Diabetic diet. Driving: No driving [...] , @ 1:20p Patient to follow-up with Cooper Helper/heart failure team in one week. Appointment will be made for you. You may call [phone] Patient to follow-up with Cardiac Surgery, Dr. Yuan Webber, in ~ 4 weeks with CXR, EKG. Cardiac Rehabilitation: Gregory Hoang was seen today regarding participation in the outpatient Phase 2 Cardiac Rehabilitation at [facility]. The patient agrees to a referral to this program. The referral will be sent at discharge and the patient should be contacted by the Program within 1- 2 weeks from discharge. ?? Future Appointments and Orders Future Appointments Provider Department Dept Phone 09/07/2017 3:00 PM LAB, THREE L Lab 3L [facility] [phone] 09/07/2017 4:00 PM Luz Prescott MD Endocrinology at [place] [phone] Future Orders Complete By Expires EKG 12 Lead [EKG1 Custom] 08/14/2017 02/13/2018 Process Instructions: Scheduling Instructions: Questions: Which DH location will this be performed?: [place] Is a rhythm strip needed?: No If EKG Reason is Pre-op Evaluation, indicate diagnosis for surgery.: XR Chest PA & Lateral (Generic) [40392 [id number] Custom] 08/14/2017 02/13/2018 Process Instructions: Scheduling Instructions: Questions: Where will study be performed?: [place] [facility] Portable exam?: Reason for exam and clinical history: CABG x 3 Other pertinent information: Stat read required?: Date of injury if applicable: Requested Time: Referral to Cardiac Rehab [MEI008 Custom] As directed Process Instructions: If no progress note charted, please enter Clinical details in comments. Scheduling Instructions: Questions: My question or request is: s/p CABG. Cardiac rehab at [facility] Referral to Home Health - at DISCHARGE [AMF0795 CPT(R)] As directed Process Instructions: Scheduling Instructions: Comments: DOCUMENTATION FOR VNA SERVICES (INCLUDING THOSE PATIENTS WITH MEDICARE COVERAGE REQUIRING HOME VNA SERVICES AND/OR HOSPICE SERVICES) PATIENT'S LOCATION: Gregory Hoang [address] [place] [address] [place] [id number] (home) Telephone Information: Crozer Operator's Name: self In discussion with the attending physician, it is certified that this patient is under their care and that they, or a Nurse Practitioner, or Physician Peer Counselor who is working directly with them, [...] (Central Intake for [place] [employer] in [place] PHONE: [phone] FAX: [phone] RN orders: Cardiopulmonary assessment, incisional assessment, assess vital signs, assessment of rehab progress, medication management and effectiveness, home safety evaluation. Please draw INR if indicated and send result to:Dr Vicente [phone] PT ORDERS: Continue rehab for endurance, gait stability and strength with mobility and transfers. Home safety evaluation. Home exercise program if appropriate. Start of Care Date:24-48 hours after discharge SPECIAL INSTRUCTIONS: For any follow up questions, needs, or issues please call the Cardiac Surgery Office at [phone] FOR MEDICARE ONLY: (please delete this section [...] Agency name and contact information: [facility] Patient location post discharge: home What services are requested: Registered Nurse Physical Therapy Start date: Responsible MD post discharge contact info: PCP Arrangements for VNA/home care: As above. VN RN OR PCP TO PLEASE REMOVE CHEST TUBE SUTURES ON OR AFTER 07/17/2017 Signed: Martha Teague APRN [facility] Section of Cardiac Surgery [facility] [address] FAX [phone] Date: 07/14/2017 CC: MD Ivania Cr Betsy, PA [address] [place] [phone] documented in this encounter Discharge Instructions Discharge [...] not take or discontinue any prescription or frlg-kie-rbisvlk medications without asking your doctor or pharmacist [...] Yuan Webber and/or the Cardiac Surgery Physician Peer Counselor Team may be reached at . [...] Dr. Yuan Webber. You may use a Bandana Track or treadmill but avoid any pulling [...] friends, go to a movie, go to anabaptist, etc. ?? Heavy activities: No hunting, skiing, jogging, snow shoveling, snowmobiling, lawn mowing, swimming, golf or tennis until after your return appointment with the surgeon. Do not ride motorcycles, trinket's tractors or horses. Avoid the use of [...] should resume a low fat, low cholesterol, Irish Heart Association Diet/Diabetic diet. ?? Driving: No [...] @ 1:20p ?? Patient to follow-up with Cooper Helper/heart failure team in one week. An appointment has been made for you, you can call [phone] ?? Patient to follow-up with Cardiac Surgery, Dr. Yuan Webber, in ~ 4 weeks with CXR, EKG. ? Cardiac Rehabilitation: Gregory Hoang??was seen today regarding participation in the outpatient Phase 2 Cardiac Rehabilitation at [facility]. ?? The patient agrees to a referral to this program.? The referral will be sent at discharge and the patient should be contacted by the Program within 1- 2 weeks from discharge. ? Future Appointments and Orders Future Appointments Provider Department Dept Phone ?? 09/07/2017 3:00 PM LAB, THREE L Lab 3L [facility] [phone] ?? 09/07/2017 4:00 PM Luz Prescott MD Endocrinology at [place] [phone] Future Orders Complete By Expires ?? EKG 12 Lead [EKG1 Custom] 08/14/2017 02/13/2018 ?? Process Instructions: ? Scheduling Instructions: ? Questions: ? Which location will this be performed?: [place] ?? Is a rhythm strip needed?: No ?? If EKG Reason is Pre-op Evaluation, indicate diagnosis for surgery.: ?? XR Chest PA & Lateral (Generic) [[id number] Custom] 08/14/2017 02/13/2018 ?? Process Instructions: ? Scheduling Instructions: ? Questions: ? Where will study be performed?: [place] [facility] ?? Portable exam?: ?? Reason for exam and clinical history: CABG x 3 ?? Other pertinent information: ?? Stat read required?: ?? Date of injury if applicable: ?? Requested Time: ?? Referral to Cardiac Rehab [EIU062 Custom] As directed ? Process Instructions: ?? If no progress note charted, please enter Clinical details in comments. ?? Scheduling Instructions: ? Questions: ? My question or request is: s/p CABG. Cardiac rehab at [facility] ? Arrangements for VNA/home care: [...] RN - 07/14/2017 2:34 PM EST The patient/utility sales representative has been provided a list of Home Health Agencies/DME vendors which serve their preferred geographic area. A letter describing our affiliations was reviewed with them and theywere educated about their right to choose where referrals are placed. Patient requests referral to [facility]. PHONE: [phone] FAX: [phone] Expected date of discharge: 07/14 Referral routed to the Insole Cementer for matching with agency/vendor and to [facility] Diabetes Management Pager [phone] 20 minutes of this 35 minute visit was spent with the patient in counseling on diabetes and treatment plan, reviewing all glucose and insulin data as well as relevant laboratory results with the patient, and coordination of care on the inpatient unit including nursing and primary team. Zulma Power RN - 07/14/2017 10:30 AM EST The patient/utility sales representative has been provided a list of Home Health Agencies/DME vendors which serve their preferred geographic area. A letter describing our affiliations was reviewed with them and theywere educated about their right to choose where referrals are placed. Patient requests referral to : Yasmani Munguia ([facility] [place] [employer]-is in [place] PHONE: [phone] FAX: [phone]. Expected date of discharge: 07/14/17 Referral routed to the Insole Cementer for matching with agency/vendor and to [...] [facility] Diabetes Management Pager [phone] 15 minutes of this 25 minute visit [...] of infiltration/extravasation Discussed plan of care with VENTILATION EQUIPMENT TENDER and RN. Elevate exrtemity and apply intermittent Warm compresses. Name of MD contacted Dr. Shaw Brown 07/13/2017 @ 0602 Name of RN contacted Ale Rangel RN Name of Pharmacist if consulted NA Name of Plastics MD ( if consulted) NA (Mandatory photo for infiltrations/ extravasations scoring a stage 2 or greater, but recommended forstage 1)( include measuring tape and identifier in the photo) DIRECTOR COMMUNITY CENTER CARING FOR THIS PATIENT WILL CONTINUE TO [...] measuring tape and identifier in the photo) DIRECTOR COMM[facility]ITY CENTER CARING FOR THIS PATIENT WILL CONTINUE TO [...] addressed by this radio news writer.All of MrMadiha Hoang's responses were entirely appropriate. Images of infiltrates attached here. L Martha Teague, EARLY CHILDHOOD EDUCATOR AIDE - 07/13/2017 8:01 AM EST Cardiac Surgery Progress Note: ID: [id number] 72 year old male POD#6 s/p CABGx3 [...] discharge. ?? I have met with the patient/utility sales representative to discuss discharge planning needs. I have provided the [facility], Office of Care Management letter from the Real Estate Manager pertaining to rehab referrals. I have also provided a letter describing our affiliations within the [facility] and educated them about their right to choose where referrals are placed. ?? I reviewed the different levels of rehab including SNF, swing, acute and LTAC with the patient/utility sales representative. ?? The patient/utility sales representative has been provided a list of facilities within their preferred geographic area. ?? I have requested that the patient/utility sales representative provide at least three choices for referral. ?? The patient/utility sales representative have requested referrals to: ?? [facility]. [facility] ?? 2. [facility] ?? 3. More to be entered ?? Expected date of discharge: 07/14 Note routed to Insole Cementer who will communicate referrals to facilities [...] [facility] Management Pager [phone] 20 minutes of this 35 minute visit was spent with the patient in counseling on diabetes and treatment plan, reviewing all glucose and insulin data as well as relevant laboratory results with the patient, and coordination of care on the inpatient unit including nursing and primary team. Makayla Stevenson APRN - 07/12/2017 9:52 AM EST Cardiac Surgery Progress Note: ID: [id number] 72 year old male POD#5 s/p CABGx3 [...] 7:18 PM EST Patient arrived from [facility]. VSS. MSI dressing pulled off with [...] hours. If BG remains greater than 240, cowigi21 units (no more than three times) & [...] AM EST Cardiac Surgery Progress Note: ID: [id number] 72 year old male POD#4 s/p CABGx3 [...] hours. If BG remains greater than 240, xkkava50 units (no more than three times) & [...] AM EST Cardiac Surgery Progress Note: ID: [id number] 72 year old male POD#3 s/p CABGx3 [...] Gas) No results found for: PHART, PO2ART, EQX4EWU Assessment/Plan: 72 year old male POD#3 s/p [...] Mami Thao - 07/09/2017 6:29 PM EST Wire Rope Sales Representative Encounter Note Patient Name: Gregory Hoang : [id number] MR#: [id number] Admit Date: 07/05/2017 4:20 PM Hospital Day 4 days Narrative: Patient was sitting in chair, hugging heart pillow, opened his eyes, nodding to come into room Assessment: Patient was sleepy. Intervention and Outcome: Introduced alarm mechanic services and patient reached his hand out in appreciation. Follow-up: Wire Rope Sales Representative remains available for support. Time in Direct [...] AM EST Cardiac Surgery Progress Note: ID: [id number] 72 year old male POD#2 s/p CABGx3 [...] completed shifts: In: 7977.4 [I.V.:7477.4; Other:500] Out: 0075 [Urine:3000; Other:615] I- 4 L O- 2.7 [...] Attending Surgeon on rounds. Signed: STEPHANIE Iqbal [facility] Section of Cardiac Surgery Date: [...] when IABP d/c'ed. Gretchen Carolina, PT Pager [phone] Maddison Cee PA - 07/08/2017 11:27 AM EST Cardiac Surgery Progress Note: ID: [id number] 72 year old male POD#1 s/p CABGx3 [...] Attending Surgeon on rounds. Signed: STEPHANIE Iqbal [facility] Section of Cardiac Surgery Date: [...] in place in R femoral. No hematoma. BALLET SOLOIST- Intact Psych- Anxious Skin- Dry, no peripheral [...] CVCC - code status: Full Code Dinorah Rmaírez MD, PGY-1 Cardiology S1 (pgr. [id number]) Daphne [...] intact. IABP in place in R femoral. BALLET SOLOIST- Intact Psych- Anxious Skin- Dry, no peripheral [...] note for details. DAPHNE SHAHID MD Pager [phone] Jet Mckenna MD - 07/05/2017 6:48 PM EST Preliminary Cardiac Catheterization Procedure Note: Procedure(s) performed: Left heart cath, IABP insertion Access: Right LABOR STANDARDS DIRECTOR-->8fr IABP A time-out was conducted prior [...] gtt maintained. Pt transferred to labor relations specialist. documented in this encounter H&P Notes Daphne Shahid MD - 07/05/2017 6:08 PM EST CARDIOLOGY HISTORY & PHYSICAL EXAM Date of Admission: 07/05/2017 ( Hospital Day 0 days ) Responsible Attending: Daphne Shahid MD PCP: Lovely Vicente MD PCP#: [phone] Patient Active Problem List Diagnosis Code ??? [...] with heparin drip and transferred to [facility]. While there, continued sob, question of chest pain. Stat TTE showing WMA diffusely and EF around 20%. No significant valvular disease. Taken to the labor relations specialist urgently for ongoing STEMI. [facility] Labs: INR 1.0 WBC 5.88 [...] - s/p lasix in the labor relations specialist, redose to aim net neg 1L [...] Medicine, PGY-2 Cardiology S1, Team Pager # [phone] CARDIOLOGY ATTENDING NOTE Patient: Gregory Hoang Date [...] amenable for PCI. DAPHNE SHAHID MD Pager [phone] documented in this encounter Miscellaneous Notes Consult Note - Daphne Shahid MD - 07/14/2017 11:46 AM EST Heart Failure Service Inpatient Consult Note Gregory Hoang Date of : 1945 Age: 72 y.o. Today's date: 07/14/17 PCP: Lovely Vicente MD METAL FABRICATOR APPRENTICE: None Place of Service: C451-A Reason for [...] 33.75) performed by Yuan Webber MD at [facility] OR ??? PRO CABG, ARTERY-VEIN, TWO N/A 07/07/2017 @CABG, TWO VENOUS GRAFTS & ARTERIAL GRAFT (WRVU 7.93) performed by Yuan Webber MD at [facility] OR ??? PRO COLONOSCOPY, REMV LESN, SNARE 01/16/2014 COLONOSCOPY, POLYPECTOMY, REMOVAL LESION BY SNARE performed by Nohemi Jaimes MD at [facility] ENDOSCOPY ??? PRO ENDOSCOPY W/VIDEO-ASST VEIN HARVEST, CABG Right 07/07/2017 ENDOSCOPIC HARVEST VEIN(S) FOR CABG (WRVU 0.31) performed by Yuan Webber MD at [facility] OR ??? PRO THYROIDECTOMY 03/28/2013 THYROIDECTOMY, TOTAL OR COMPLETE performed by Manny Mcknight MD at [facility] OR Outpt Meds: Current Outpatient [...] following studies: EKG 07/14/17: NSR 75 bpm, AVIATION SAFETY TECHNICIAN anterior infarct, LAD CXR 07/11/17: FINDINGS: Sternotomy wires. The patient has been extubated, left chest tube removed, and [place]-Suzi catheter removed since the 07/07/2017 study. [...] was discussed with Zehra. Jaden Kelley MD Cell Plasterer Pager [phone] CARDIOLOGY ATTENDING NOTE Patient: Gregory Hoang Date [...] heart failure clinic. DAPHNE SHAHID MD Pager [phone] Plan of Care - Alden Chavarria, MECHANICAL APPRENTICE - 07/14/2017 11:35 AM EST Problem: Patient [...] Discharge Disposition: home with assist Alden Chavarria, MECHANICAL APPRENTICE Pager: [phone] Inpatient Physical Therapy Problem: Acute Rehab Services [...] sit/sit to supine -- Bed Mobility Goal, [place] Level supervision required -- Bed Mobility Goal, [...] - 3 days -- Gait Training Goal, [place] Level supervision required -- Gait Training Goal, [...] days -- Transfer Training Goal, Activity Type muw-ym-bialm/lmcvi-oz-axr;tsv-ri-xtfqg/nleix-dr-uen;toilet -- Transfer Train Goal, [place] Level supervision required -- Transfer Training Goal, [...] keeping present for 2 days per family. Respiratory Care Practitioner noted of frustrations, house keeping sent to room. Patient offered showered twice, refused. at bedside, frustrated that shower not complete, informed that patient had refused several times. requesting to see SCOOP DRIVER, paged sent to Martha, will come to bedside (middle of consult). not willing to wait, Martha notified that family had gone home. Encouraged to come for morning rounds a t 8am. Diabetes team at bedside - insulin adjustments made. Call cabello in reach. Continue to monitor. PLAN MOVING FORWARD: Ambulate, dressing changes BID, Please change drsg at 4am per Martha SCOOP DRIVER request. INDIVIDUALIZED FALL PREVENTION INTERVENTIONS: Patient-specific fall [...] levels on the lower side, 60ml of Burns juice given after a FS of 80. [...] monitoring required during toileting and ADLs]: RN VENTILATION EQUIPMENT TENDER Surveillance [continuous indirect monitoring]: Barrett Monitor CPG [...] Anticipated Discharge Disposition: home with assist Pager: [phone] CLARISSA SEGAL, PT 07/12/2017 Physical Therapy Rehabilitation [...] to sit/sit to supine Bed Mobility Goal, [place] Level supervision required Bed Mobility Goal, Additional Goal adheres to psternal precautions for transfer Goal: Gait Training Goal Stand Alone Therapy Goal Outcome: Ongoing (Interventions Implemented as Appropriate) 07/12/17 1225 Gait Training Goal Gait Training Goal, Date Established 07/12/17 Gait Training Goal, Time to Achieve 2 - 3 days Gait Training Goal, [place] Level supervision required Gait Training Goal, Assist [...] 3 days Transfer Training Goal, Activity Type ncz-xt-imtbu/ceopy-hl-xyk;yxe-yv-kntyz/huwqb-wl-jie;toilet Transfer Train Goal, [place] Level supervision required Transfer Training Goal, Additional Goal adheres to sternal precautions during transfer Consult Note - Octavia Vaughn RN - 07/12/2017 10:50 AM EST [facility] CARDIAC REHABILITATION Gregory Hoang was seen today regarding participation in the outpatient Phase 2 Cardiac Rehabilitation at [facility]. The patient agrees to a [...] IV site, amio to other piv and FINANCIAL SERVICES AGENT at bedside to help assess, IV removed. [...] staff, he stood and marched in place. [place] weak, wanting to sit back down. Remained [...] Health/Prescription Coverage: Primary Insurance: MEDICARE Secondary Insurance: Capital Float Prescription Coverage: yes Preferred Pharmacy: [facility] [place] Other: none Primary Care Provider: Lovely Vicente MD [phone] Patient/Caregiver Goals of Treatment:live and get my breath back Potential Needs for Transition of Care: Rehab/SNF: [facility] Home Health: DME: TBD Dialysis: [...] potential to d/c gtt and start CF. long term care phlebotomist diabetes care: Medications - Outpatient treatment regimen recommendations pending based on the hospital course. Monitoring - continue BG tid ac & hs Diet - low fat/low carb diet Exercise - weight-bearing exercise 30 min/day, as tolerated Thank you for allowing us to provide care for your patient W/E coverage, Dr. Jeane Tatum, pager [phone] Katerin Azul APRN Endocrinology Diabetes Management Pager [phone] Plan of Care - Stephanie Godoy RN [...] Operative Note Patient Name: Gregory Hoang : [id number] MR#: [id number] Case Date: 07/07/2017 Surgeon: Surgeon(s) and Role: * Yuan Webber MD - Primary * Michael Drake PA - Physician Peer Counselor * Linda Flores PA - Physician Peer Counselor Preoperative diagnosis: 3VD Postoperative diagnosis: CAD, [...] Operative Note Patient Name: Gregory Hoang : [id number] MR#: [id number] Case Date: 07/07/2017 Surgeon: Surgeon(s) and Role: * Yuan Webber MD - Primary * Michael Drake PA - Physician Peer Counselor * Linda Flores PA - Physician Peer Counselor Preoperative diagnosis: 3VD Postoperative diagnosis: CAD, [...] Full Code Katty Hahn, MS3 [facility] at [facility] Cardiology S1 (Pager [phone]) Plan of Care - Emelia Ibarra RN [...] 07/06/2017 2:39 PM EST Patient Name: Gregory oHang Patient Age: 72 [...] MD at [facility] OR Social History: Social [...] with other involved physicians Yuan Webber MD [phone] Med Student Progress Note - Katty Hahn [...] - s/p lasix in the labor relations specialist, was net -1.5L - s/p plavix [...] insulin drip - hold metformin - f/u [facility] ?? #Home Meds - continue levothyroxine 175mcg - CPAP at night ?? # Routine - DVT PPx: heparin drip - Diet: Healthy heart diet, NPO at midnight for CABG tomorrow - Code Status: FULL - Dispo: CVCC Katty Hahn, M3 [facility] Cardiology S1 (Pager [phone]) Plan of Care - Stephanie Godoy RN - 07/06/2017 5:00 AM EST Problem: Patient Care Overview Goal: Plan of Care Review 07/06/17 6536 Coping/Psychosocial Plan Of Care Reviewed With patient;family [...] without difficulty. Lasix given in labor relations specialist, 1.4 L out at this time. [...] Outcome: Ongoing (Interventions Implemented as Appropriate) 07/06/17 9106 Cardiac: ACS (Acute Coronary Syndrome) Problems Assessed [...] Dolan MD [facility] [address] [place], [place] [address] (Wo rk) 05/28/2022 Laboratory Appointment Lab 05/28/2022 Office Visit Cardiology Zulma Dolan MD [facility] [place] [address] Liz Poole PA [facility] [place] [address] 06/10/2022 Office Visit Dermatology Laura Scherer MD [facility] [address] [place], [place] [address] (Wo rk) Scheduled Orders Name [...] procedure are i n the results section. A AND P TECHNICIAN SCAN 07/15/2017 12:00 Res ults for this [...] or this ([facility] AM EST procedure are i n the [...] Timed 07/06/2017 2:10 Results f or this ([facility] or this ([facility] PM EST procedure are i n the [...] or this ([facility] PM EST procedure are i n the [...] 2017 EXAMINATION: XR CHEST PA AND LATERAL ([employer]) CLINICAL HISTORY: CABG x 3 TECHNIQUE: PA [...] Teague APRN IMG DX ORDERABLES SCAN DOC: A AND P TECHNICIAN (07/15/2017 12:00 AM EST) Narrative 07/15/2017 12:00 [...] 186 65 - 199 [place]BARA DAVIS mg/dL [facility] Comment: [...] Organization Address City/State/ZIP Code Phon e Number [place] [id number] [facility] [address] POCT Glucose (07/14/2017 7:52 AM EST) athologist Signature POC Glucose 126 65 - 199 [facility] mg/dL [facility] Comment: Supplemental [...] Address City/State/ZIP Code Phon e Number [address] (ABNORMAL) Prothrombin Time (07/14/2017 [...] Address City/State/ZIP Code Phon e Number [address] Potassium (07/14/2017 4:46 AM EST) athologist Signature Potassium 4.3 3.5 - 5.0 [facility] mmol/L [facility] Comment: Please [...] Address City/State/ZIP Code Phon e Number [address] POCT Glucose (07/14/2017 4:34 AM EST) athologist Signature POC Glucose 115 65 - 199 [facility] RYAN mg/dL [facility] Comment: Supplemental ranges: <140 mg/dL before meals <180 mg/dL all other times of the day Specimen Anatomical Collection Method Collection Time Receive d Time (Source) Location / / Volume Laterality Blood specimen 07/14/2017 4:34 AM 017 4:34 (specimen) EST AM EST Yuan Webber MD POINT OF CARE TEST ORDERABLE S Performing Organization Address City/[facility]/ZIP Code Phon e Number [address] POCT Glucose (07/13/2017 11:33 PM EST) athologist Signature POC Glucose 132 65 - 199 [place] mg/dL [facility] Comment: Supplemental ranges: <140 mg/dL before meals <180 mg/dL all other times of the day Specimen Anatomical Collection Method Collection Time Receive d Time (Source) Location / / Volume Laterality Blood specimen 07/13/2017 11:33 7 (specimen) PM EST 11:33 PM EST Yuan Webber MD POINT OF CARE TEST ORDERABLE S Performing Organization Address City/[facility]/ZIP Code Phon e Number [address] POCT Glucose (07/13/2017 9:25 PM EST) athologist Signature POC Glucose 121 65 - 199 [place] RY[place] mg/dL [facility] Comment: Supplemental [...] Address City/State/ZIP Code Phon e Number [address] POCT Glucose (07/13/2017 4:55 PM EST) P athologist Signature POC Glucose 79 65 - 199 [facility] [place] mg/dL [facility] Comment: Supplemental [...] Address City/State/ZIP Code Phon e Number [address] POCT Glucose (07/13/2017 11:16 AM EST) P athologist Signature POC Glucose 163 65 - 199 [place] RYAN mg/dL [facility] Comment: Supplemental [...] Address City/State/ZIP Code Phon e Number [address] POCT Glucose (07/13/2017 8:07 AM EST) P athologist Signature POC Glucose 96 65 - 199 [place] mg/dL [facility] Comment: Supplemental ranges: <140 mg/dL before meals <180 mg/dL all other times of the day Specimen Anatomical Collection Method Collection Time Receive d Time (Source) Location / / Volume Laterality Blood specimen 07/13/2017 8:07 AM 017 8:07 (specimen) EST AM EST Yuan Webber MD POINT OF CARE TEST ORDERABLE S Performing Organization Address City/[facility]/[place] [address] (ABNORMAL) Prothrombin Time (07/13/2017 [...] Wilson APRN HEMATOLOGY ORDERABLES Performing Organization Address City/[facility]/[place] [address] (ABNORMAL) Basic Metabolic Panel (non-fasting) (07/13/2017 4:26 AM EST) P athologist Signature Glucose Lvl 95 65 - 199 [facility] mg/dL [facility] Comment: Diabetes: >=200 mg/dL plus symp toms BUN 25 (H) 10 - 20 mg/dL [facility] Creatinine 1.19 0.80 - 1.50 [...] 15 mmol/L [facility] Calcium 7.7 (L) 8.5 - 10.5 mg/dL [facility] Estimated GFR 60 >=60 [facility] Comment: The reported eGFR should be multiplied b y 1.2 for patients. The MDRD is not an appropriate measure o f renal function for patients with body mass extremes or in patients with acute kidney failure. http://[employer]/DHnkdep http://[employer]/DHMCnkf Specimen Anatomical Collection Method Collection Time Receive d Time (Source) Location / / Volume Laterality Blood specimen 07/13/2017 4:26 AM 017 4:46 (specimen) EST AM EST Resulting Agency Comment Spec In Lab Makayla Wilson APRN CHEMISTRY ORDERABLES Performing Organization Address City/[facility]/ZIP Code Phon e Number [address] POCT Glucose (07/13/2017 3:52 AM EST) P athologist Signature POC Glucose 93 65 - 199 [facility] mg/dL [facility] Comment: Supplemental ranges: <140 mg/dL before meals <180 mg/dL all other times of the day Specimen Anatomical Collection Method Collection Time Receive d Time (Source) Location / / Volume Laterality Blood specimen 07/13/2017 3:52 AM 017 3:52 (specimen) EST AM EST Yuan Webber MD POINT OF CARE TEST ORDERABLE S Performing Organization Address City/State/[place] [address] POCT Glucose (07/13/2017 12:21 AM EST) athologist Signature POC Glucose 80 65 - 199 [place] RY[place] mg/dL [facility] Comment: Supplemental [...] Address City/State/ZIP Code Phon e Number [address] POCT Glucose (07/12/2017 8:22 PM EST) athologist Signature POC Glucose 119 65 - 199 [facility] RY[place] mg/dL [facility] Comment: Supplemental [...] Address City/State/ZIP Code Phon e Number [address] POCT Glucose (07/12/2017 4:02 PM EST) athologist Signature POC Glucose 114 65 - 199 [facility] R[place] mg/dL [facility] Comment: Supplemental ranges: <140 mg/dL before meals <180 mg/dL all other times of the day Specimen Anatomical Collection Method Collection Time Receive d Time (Source) Location / / Volume Laterality Blood specimen 07/12/2017 4:02 PM 017 4:02 (specimen) EST PM EST Yuan Webber MD POINT OF CARE TEST ORDERABLE S Performing Organization Address City/State/[place] [address] POCT Glucose (07/12/2017 11:28 AM EST) athologist Signature POC Glucose 164 65 - 199 [facility] mg/dL [facility] Comment: Supplemental [...] Address City/State/ZIP Code Phon e Number [address] POCT Glucose (07/12/2017 7:34 AM EST) athologist Signature POC Glucose 109 65 - 199 [facility] mg/dL [facility] Comment: Supplemental ranges: <140 mg/dL before meals <180 mg/dL all other times of the day Specimen Anatomical Collection Method Collection Time Receive d Time (Source) Location / / Volume Laterality Blood specimen 07/12/2017 7:34 AM 017 7:34 (specimen) EST AM EST Yuan Webber MD POINT OF CARE TEST ORDERABLE S Performing Organization Address City/State/[place] [address] (ABNORMAL) Basic Metabolic Panel (non-fasting) (07/12/2017 4:11 AM EST) athologist Signature Glucose Lvl 92 65 - 199 [facility]dL [facility] Comment: Diabetes: >=200 mg/dL plus symp toms BUN 31 (H) 10 - 20 mg/dL [facility] Creatinine 1.23 0.80 - 1.50 [...] HOSPITAL LABORATORY Estimated GFR 58 (L) >=60 [facility] Comment: The reported eGFR should be multiplied b y 1.2 for patients. The MDRD is not an appropriate measure o f renal function for patients with body mass extremes or in patients with acute kidney failure. http://[employer]/DHnkdep http://[employer]/DHnkf Specimen Anatomical Collection Method Collection Time Receive d Time (Source) Location / / Volume Laterality Blood specimen 07/12/2017 4:11 AM 017 8:57 (specimen) EST AM EST Resulting Agency Comment Spec In Lab Makayla Katie QUINONES CHEMISTRY ORDERABLES Performing Organization Address City/State/[place] [address] (ABNORMAL) Prothrombin Time (07/12/2017 [...] Wilson APRN HEMATOLOGY ORDERABLES Performing Organization Address City/[facility]/[place] [address] Potassium (07/12/2017 4:11 AM EST) athologist Signature Potassium 3.8 3.5 - 5.0 [facility] mmol/L [facility] Comment: Please [...] Wilson APRN CHEMISTRY ORDERABLES Performing Organization Address City/[facility]/[place] [address] POCT Glucose (07/12/2017 4:10 AM EST) athologist Signature POC Glucose 90 65 - 199 [facility] mg/dL [facility] Comment: Supplemental ranges: <140 mg/dL before meals <180 mg/dL all other times of the day Specimen Anatomical Collection Method Collection Time Receive d Time (Source) Location / / Volume Laterality Blood specimen 07/12/2017 4:10 AM 017 4:10 (specimen) EST AM EST Yuan Webber MD POINT OF CARE TEST ORDERABLE S Performing Organization Address City/[facility]/[place] [address] POCT Glucose (07/11/2017 11:57 PM EST) athologist Signature POC Glucose 98 65 - 199 [facility] mg/dL [facility] Comment: [...] Organization Address City/State/[place] [address] POCT Glucose (07/11/2017 8:32 PM EST) P athologist Signature POC Glucose 146 65 - 199 [facility] mg/dL [facility] Comment: Supplemental ranges: <140 mg/dL before meals <180 mg/dL all other times of the day Specimen Anatomical Collection Method Collection Time Receive d Time (Source) Location / / Volume Laterality Blood specimen 07/11/2017 8:32 PM 017 8:32 (specimen) EST PM EST Yuan Webber MD POINT OF CARE TEST ORDERABLE S Performing Organization Address City/State/[place] [address] XR Chest PA & [...] e xtubated, left chest tube removed, and [place]-Suzi catheter removed since the study. Atelectasis [...] e xtubated, left chest tube removed, and [place]-Suzi catheter removed since the study. Atelectasis [...] Glucose 223 (H) 65 - 199 [facility] mg/dL [facility] Comment: Supplemental ranges: <140 mg/dL before meals <180 mg/dL all other times of the day Specimen Anatomical Collection Method Collection Time Receive d Time (Source) Location / / Volume Laterality Blood specimen 07/11/2017 4:05 PM 017 4:05 (specimen) EST PM EST Yuan Webber MD POINT OF CARE TEST ORDERABLE S Performing Organization Address City/[facility]/[place] [address] POCT Glucose (07/11/2017 11:55 AM EST) athologist Signature POC Glucose 176 65 - 199 [place] mg/dL [facility] Comment: Supplemental ranges: <140 mg/dL before meals <180 mg/dL all other times of the day Specimen Anatomical Collection Method Collection Time Receive d Time (Source) Location / / Volume Laterality Blood specimen 07/11/2017 11:55 7 (specimen) AM EST 11:55 AM EST Yuan Webber MD POINT OF CARE TEST ORDERABLE S Performing Organization Address City/State/[place] [address] POCT Glucose (07/11/2017 7:53 AM EST) athologist Signature POC Glucose 189 65 - 199 [facility] mg/dL [facility] Comment: Supplemental ranges: <140 mg/dL before meals <180 mg/dL all other times of the day Specimen Anatomical Collection Method Collection Time Receive d Time (Source) Location / / Volume Laterality Blood specimen 07/11/2017 7:53 AM 017 7:53 (specimen) EST AM EST Yuan Webber MD POINT OF CARE TEST ORDERABLE S Performing Organization Address City/[facility]/ZIP [facility] Phon e Number [address] POCT Glucose (07/11/2017 4:22 AM EST) athologist Signature POC Glucose 151 65 - 199 [facility] mg/dL [facility] Comment: Supplemental ranges: <140 mg/dL before meals <180 mg/dL all other times of the day Specimen Anatomical Collection Method Collection Time Receive d Time (Source) Location / / Volume Laterality Blood specimen 07/11/2017 4:22 AM 017 4:22 (specimen) EST AM EST Yuan Webber MD POINT OF CARE TEST ORDERABLE S Performing Organization Address City/[facility] Phon e Number [address] Potassium (07/11/2017 2:20 AM EST) athologist Signature Potassium 4.5 3.5 - 5.0 [facility] mmol/L [facility] Comment: Please [...] Address City/State/ZIP Code Phon e Number [address] POCT Glucose (07/11/2017 12:17 AM EST) athologist Signature POC Glucose 162 65 - 199 [place] mg/dL [facility] Comment: Supplemental ranges: <140 mg/dL before meals <180 mg/dL all other times of the day Specimen Anatomical Collection Method Collection Time Receive d Time (Source) Location / / Volume Laterality Blood specimen 07/11/2017 12:17 7 (specimen) AM EST 12:17 AM EST Yuan Webber MD POINT OF CARE TEST ORDERABLE S Performing Organization Address City/[facility]/ZIP Code Phon e Number [address] POCT Glucose (07/10/2017 8:47 PM EST) athologist Signature POC Glucose 191 65 - 199 [place] RYAN mg/dL [facility] Comment: Supplemental ranges: <140 mg/dL before meals <180 mg/dL all other times of the day Specimen Anatomical Collection Method Collection Time Receive d Time (Source) Location / / Volume Laterality Blood specimen 07/10/2017 8:47 PM 017 8:47 (specimen) EST PM EST Yuan Webber MD POINT OF CARE TEST ORDERABLE S Performing Organization Address City/[facility]/ZIP Code Ph[place] [address] POCT Glucose (07/10/2017 4:06 PM EST) athologist Signature POC Glucose 131 65 - 199 [place] RY[place] mg/dL [facility] Comment: Supplemental ranges: <140 mg/dL before meals <180 mg/dL all other times of the day Specimen Anatomical Collection Method Collection Time Receive d Time (Source) Location / / Volume Laterality Blood specimen 07/10/2017 4:06 PM 017 4:06 (specimen) EST PM EST Yuan Webber MD POINT OF CARE TEST ORDERABLE S Performing Organization Address City/State/[place] [address] POCT Glucose (07/10/2017 3:08 PM EST) athologist Signature POC Glucose 151 65 - 199 [place] mg/dL [facility] Comment: Supplemental [...] Address City/State/ZIP Code Phon e Number [address] POCT Glucose (07/10/2017 2:25 PM EST) athologist Signature POC Glucose 146 65 - 199 [facility] R[facility] mg/dL [facility] Comment: Supplemental [...] Address City/State/ZIP Code Phon e Number [address] POCT Glucose (07/10/2017 1:23 PM EST) athologist Signature POC Glucose 166 65 - 199 [place] mg/dL [facility] Comment: Supplemental ranges: <140 mg/dL before meals <180 mg/dL all other times of the day Specimen Anatomical Collection Method Collection Time Receive d Time (Source) Location / / Volume Laterality Blood specimen 07/10/2017 1:23 PM 017 1:23 (specimen) EST PM EST Yuan Webber MD POINT OF CARE TEST ORDERABLE S Performing Organization Address City/State/[place] [address] POCT Glucose (07/10/2017 11:52 AM EST) P athologist Signature POC Glucose 157 65 - 199 [place] mg/dL [facility] Comment: Supplemental [...] Address City/State/ZIP Code Phon e Number [address] POCT Glucose (07/10/2017 11:01 AM EST) athologist Signature POC Glucose 158 65 - 199 [facility] R[facility] mg/dL [facility] Comment: Supplemental [...] Address City/State/ZIP Code Phon e Number [address] POCT Glucose (07/10/2017 9:54 AM EST) athologist Signature POC Glucose 160 65 - 199 [place] ZHAORY[place] mg/dL [facility] Comment: Supplemental ranges: <140 mg/dL before meals <180 mg/dL all other times of the day Specimen Anatomical Collection Method Collection Time Receive d Time (Source) Location / / Volume Laterality Blood specimen 07/10/2017 9:54 AM 017 9:54 (specimen) EST AM EST Yuan Webber MD POINT OF CARE TEST ORDERABLE S Performing Organization Address City/State/[place] [address] POCT Glucose (07/10/2017 8:58 AM EST) athologist Signature POC Glucose 183 65 - 199 [place] ZHAORYAN mg/dL [facility] Comment: Supplemental ranges: <140 mg/dL before meals <180 mg/dL all other times of the day Specimen Anatomical Collection Method Collection Time Receive d Time (Source) Location / / Volume Laterality Blood specimen 07/10/2017 8:58 AM 017 8:58 (specimen) EST AM EST Yuan Webber MD POINT OF CARE TEST ORDERABLE S Performing Organization Address City/State/[place] [address] POCT Glucose (07/10/2017 8:01 AM EST) athologist Signature POC Glucose 173 65 - 199 [place] RYAN mg/dL [facility] Comment: Supplemental [...] Address City/State/ZIP Code Phon e Number [address] POCT Glucose (07/10/2017 7:05 AM EST) athologist Signature POC Glucose 166 65 - 199 [place] RY[place] mg/dL [facility] Comment: Supplemental [...] Address City/State/ZIP Code Phon e Number [address] POCT Glucose (07/10/2017 6:00 AM EST) P athologist Signature POC Glucose 162 65 - 199 [facility] mg/dL [facility] Comment: Supplemental [...] Address City/State/[place] [address] (ABNORMAL) Differential, Automated (07/10/2017 4:28 AM EST) Patholo gist Method Time Signature Neutrophils % 87.9 % [facility] Neutr Abs (ANC) 10.70 (H) 1.70 - [facility] 6.10 [facility] x10(3)/[facility] L LABORATORY Lymphocytes % 3.9 % [facility] Lymphocytes Abs 0.5 (L) 0.9 - 3.2 [facility] x10(3)/[facility] LABORATORY Monocytes % 7.0 % [facility] Monocyte Abs 0.8 0.3 - 0.9 [facility] x10(3)/[facility] LABORATORY Eosinophils % 0.3 % [facility] Eosinophils Abs 0.0 0.0 - 0.4 [facility] x10(3)/[facility] LABORATORY Basophils % 0.2 % [facility] Basophils Abs 0.0 0.0 - 0.1 [facility] x10(3)/[facility] LABORATORY Immature Gran % 0.70 [...] Address City/State/[place] [address] (ABNORMAL) Hemogram (07/10/2017 4:28 AM EST) Analysis Performed At Patho logist Time Signature WBC 12.2 (H) 4.0 - 9.5 [facility] x10(3)/[facility] LABORATORY RBC 3.31 (L) 4.58 - [facility] 5.54 [facility] x10(6)/[facility] LABORATORY Hemoglobin 9.8 (L) 13.7 - [facility] 16.5 gm/dL [facility] Hematocrit 30.0 (L) 40.5 - [facility] 48.5 % [facility] MCV 90.6 82.9 - [facility] 93.1 [facility] LABORATORY MCH 29.6 27.5 - [facility] 32.1 pg [facility] MCHC 32.7 32.0 - [facility] 35.7 gm/dL [facility] Platelets 135 (L) 145 - 357 [facility] x10(3)/[facility] LABORATORY RDWSD 50.8 (H) 36.0 - [facility] 45.0 [facility] LABORATORY RDWCV 15.4 (H) 11.4 - [facility] 13.8 % [facility] MPV 10.0 7.6 - 12.9 [facility] LABORATORY nRBC % Auto 0.0 % [facility] nRBC Abs Auto 0.000 0.000 - [facility] 0.000 [facility] x10(3)/[facility] LABORATORY Specimen Anatomical Collection Method Collection Time Receive d Time (Source) Location / / Volume Laterality Blood specimen 07/10/2017 4:28 AM 017 4:36 (specimen) EST AM EST Resulting Agency Comment Spec In Lab Yuan Webber MD HEMATOLOGY ORDERABLES Performing Organization Address City/[facility]/[place] [address] (ABNORMAL) Basic Metabolic Panel (non-fasting) (07/10/2017 4:28 AM EST) P athologist Signature Glucose Lvl 178 65 - 199 [facility] mg/dL [facility] Comment: Diabetes: >=200 mg/dL plus symp toms BUN 20 10 - 20 mg/dL [facility] Creatinine 1.19 0.80 - 1.50 [...] 15 mmol/L [facility] Calcium 7.4 (L) 8.5 - 10.5 mg/dL [facility] Estimated GFR 60 >=60 [facility] Comment: The reported eGFR should be multiplied b y 1.2 for patients. The MDRD is not an appropriate measure o f renal function for patients with body mass extremes or in patients with acute kidney failure. http://An[employer].Mapidy/DHnkdep http://Anago.Mapidy/DHMCnkf Specimen Anatomical Collection Method Collection Time Receive d Time (Source) Location / / Volume Laterality Blood specimen 07/10/2017 4:28 AM 017 4:36 (specimen) EST AM EST Resulting Agency Comment Spec In Lab Yuan Webber MD CHEMISTRY ORDERABLES Performing Organization Address City/[facility]/[place] [address] POCT Glucose (07/10/2017 4:26 AM EST) P athologist Signature POC Glucose 176 65 - 199 [facility] mg/dL [facility] Comment: Supplemental ranges: <140 mg/dL before meals <180 mg/dL all other times of the day Specimen Anatomical Collection Method Collection Time Receive d Time (Source) Location / / Volume Laterality Blood specimen 07/10/2017 4:26 AM 017 4:26 (specimen) EST AM EST Yuan Webber MD POINT OF CARE TEST ORDERABLE S Performing Organization Address City/State/[place] [address] (ABNORMAL) POCT Glucose (07/10/2017 3:06 AM EST) athologist Signature POC Glucose 204 (H) 65 - 199 [facility] mg/dL [facility] Comment: Supplemental ranges: <140 mg/dL before meals <180 mg/dL all other times of the day Specimen Anatomical Collection Method Collection Time Receive d Time (Source) Location / / Volume Laterality Blood specimen 07/10/2017 3:06 AM 017 3:06 (specimen) EST AM EST Yuan Webber MD POINT OF CARE TEST ORDERABLE S Performing Organization Address City/State/[place] [address] (ABNORMAL) POCT Glucose (07/10/2017 2:10 AM EST) athologist Signature POC Glucose 203 (H) 65 - 199 [facility] mg/dL [facility] Comment: Supplemental [...] Address City/State/ZIP Code Phon e Number [address] POCT Glucose (07/10/2017 1:09 AM EST) P athologist Signature POC Glucose 196 65 - 199 [facility] mg/dL [facility] Comment: Supplemental [...] Address City/State/ZIP Code Phon e Number [address] POCT Glucose (07/10/2017 12:10 AM EST) athologist Signature POC Glucose 173 65 - 199 [place] mg/dL [facility] Comment: Supplemental [...] Address City/State/ZIP Code Phon e Number [address] POCT Glucose (07/09/2017 11:01 PM EST) athologist Signature POC Glucose 140 65 - 199 [place] mg/dL [facility] Comment: Supplemental ranges: <140 mg/dL before meals <180 mg/dL all other times of the day Specimen Anatomical Collection Method Collection Time Receive d Time (Source) Location / / Volume Laterality Blood specimen 07/09/2017 11:01 7 (specimen) PM EST 11:01 PM EST Yuan Webber MD POINT OF CARE TEST ORDERABLE S Performing Organization Address City/State/[place] [address] POCT Glucose (07/09/2017 10:05 PM EST) athologist Signature POC Glucose 144 65 - 199 [facility] [place] mg/dL [facility] Comment: [...] Address City/State/ZIP Code Phon e Number [address] POCT Glucose (07/09/2017 9:31 PM EST) athologist Signature POC Glucose 121 65 - 199 [place] mg/dL [facility] Comment: Supplemental [...] Address City/State/ZIP Code Phon e Number [address] POCT Glucose (07/09/2017 9:03 PM EST) athologist Signature POC Glucose 98 65 - 199 [place] mg/dL [facility] Comment: Supplemental [...] Address City/State/ZIP Code Phon e Number [address] POCT Glucose (07/09/2017 8:09 PM EST) athologist Signature POC Glucose 117 65 - 199 [facility] mg/dL [facility] Comment: Supplemental ranges: <140 mg/dL before meals <180 mg/dL all other times of the day Specimen Anatomical Collection Method Collection Time Receive d Time (Source) Location / / Volume Laterality Blood specimen 07/09/2017 8:09 PM 017 8:09 (specimen) EST PM EST Yuan Webber MD POINT OF CARE TEST ORDERABLE S Performing Organization Address City/State/[place] [address] POCT Glucose (07/09/2017 5:40 PM EST) athologist Signature POC Glucose 155 65 - 199 [place] [place] mg/dL [facility] Comment: [...] Organization Address City/State/[place] [address] POCT Glucose (07/09/2017 4:24 PM EST) athologist Signature POC Glucose 164 65 - 199 [place] mg/dL [facility] Comment: Supplemental [...] Address City/State/ZIP Code Phon e Number [address] POCT Glucose (07/09/2017 3:19 PM EST) athologist Signature POC Glucose 166 65 - 199 [place] mg/dL [facility] Comment: [...] Organization Address City/State/[place] [address] POCT Glucose (07/09/2017 2:26 PM EST) athologist Signature POC Glucose 179 65 - 199 [facility] R[facility]AN mg/dL [facility] Comment: Supplemental ranges: <140 mg/dL before meals <180 mg/dL all other times of the day Specimen Anatomical Collection Method Collection Time Receive d Time (Source) Location / / Volume Laterality Blood specimen 07/09/2017 2:26 PM 017 2:26 (specimen) EST PM EST Yuan Webber MD POINT OF CARE TEST ORDERABLE S Performing Organization Address City/State/[place] [address] (ABNORMAL) POCT Glucose (07/09/2017 1:29 PM EST) athologist Signature POC Glucose 210 (H) 65 - 199 [place] mg/dL [facility] Comment: [...] Organization Address City/State/[place] [address] POCT Glucose (07/09/2017 12:20 PM EST) athologist Signature POC Glucose 172 65 - 199 [place] RY[place] mg/dL [facility] Comment: Supplemental [...] Address City/State/ZIP Code Phon e Number [address] POCT Glucose (07/09/2017 11:24 AM EST) athologist Signature POC Glucose 156 65 - 199 [facility] RYAN mg/dL [facility] Comment: Supplemental [...] Address City/State/ZIP Code Phon e Number [address] POCT Glucose (07/09/2017 11:11 AM EST) athologist Signature POC Glucose 172 65 - 199 [place] RY[place] mg/dL [facility] Comment: Supplemental [...] Address City/State/ZIP Code Phon e Number [address] POCT Glucose (07/09/2017 10:08 AM EST) athologist Signature POC Glucose 176 65 - 199 [place] mg/dL [facility] Comment: Supplemental ranges: <140 mg/dL before meals <180 mg/dL all other times of the day Specimen Anatomical Collection Method Collection Time Receive d Time (Source) Location / / Volume Laterality Blood specimen 07/09/2017 10:08 7 (specimen) AM EST 10:08 AM EST Yuan Webber MD POINT OF CARE TEST ORDERABLE S Performing Organization Address City/State/[place] [address] POCT Glucose (07/09/2017 8:02 AM EST) P athologist Signature POC Glucose 178 65 - 199 [facility] mg/dL [facility] Comment: Supplemental ranges: <140 mg/dL before meals <180 mg/dL all other times of the day Specimen Anatomical Collection Method Collection Time Receive d Time (Source) Location / / Volume Laterality Blood specimen 07/09/2017 8:02 AM 017 8:02 (specimen) EST AM EST Yuan Webber MD POINT OF CARE TEST ORDERABLE S Performing Organization Address City/State/[place] [address] (ABNORMAL) BLOOD GAS 2 ARTERIAL (07/09/2017 5:37 AM EST) Analysis Performed At Patho logist Time Signature pH Art 7.36 7.35 - [facility] 7.45 [facility] pCO2 Art 38 35 - 45 [facility] mmHg [facility] pO2 Art 79 (L) 85 - 104 [facility] mmHg [facility] HCO3 Art 20.9 20.0 - [facility] 26.0 [facility] mmol/L [facility] LABORATORY BE Art -4.6 (L) -3.0 - 3.0 [facility] mmol/L [facility] Hgb Blood Gas 10.5 (L) 13.7 - [facility] 16.5 gm/dL [facility] O2HB Art 93.8 (L) 94.0 - [facility] 97.0 % [facility] COHB Art 0.3 % [place] [facility] FIO2 Art 40 % [facility] PF Ratio Art 198 [facility] Specimen Anatomical Collection Method Collection Time Receive d Time (Source) Location / / Volume Laterality Blood specimen 07/09/2017 5:37 AM 017 5:37 (specimen) EST AM EST Yuan Wbeber MD CHEMISTRY ORDERABLES Performing Organization Address City/State/[place] [address] POCT Glucose (07/09/2017 3:27 AM EST) P athologist Signature POC Glucose 192 65 - 199 [facility] mg/dL [facility] Comment: Supplemental [...] Address City/State/[place] [address] (ABNORMAL) Basic Metabolic Panel (non-fasting) (07/09/2017 2:30 AM EST) P athologist Signature Glucose Lvl 179 65 - 199 [facility] mg/dL [facility] Comment: Diabetes: >=200 mg/dL plus symp toms BUN 17 10 - 20 mg/dL [facility] Creatinine 1.34 0.80 - 1.50 [...] 15 mmol/L [facility] Calcium 7.1 (L) 8.5 - 10.5 mg/dL [facility] Comment: result [id number]-[id number] Estimated GFR 53 (L) >=60 [facility] Comment: The reported eGFR should be multiplied b y 1.2 for patients. The MDRD is not an appropriate measure o f renal function for patients with body mass extremes or in patients with acute kidney failure. http://Anago.Mapidy/DHnkdep http://Anago.Mapidy/DHMCnkf Specimen Anatomical Collection Method Collection Time Receive d Time (Source) Location / / Volume Laterality Blood specimen Venous Draw / 07/09/2017 2:30 AM 2016 2:42 (specimen) Unknown EST AM EST Resulting Agency Comment Spec In Lab Yuan Webber MD CHEMISTRY ORDERABLES Performing Organization Address City/State/[place] [address] (ABNORMAL) Potassium (07/09/2017 2:30 AM EST) P athologist Signature Potassium 5.1 (H) 3.5 - 5.0 [facility] mmol/L [facility] Comment: Please [...] Webber MD CHEMISTRY ORDERABLES Performing Organization Address City/[facility]/[place] [address] (ABNORMAL) Hemogram (07/09/2017 2:30 AM EST) Analysis Performed At Patho logist Time Signature WBC 12.5 (H) 4.0 - 9.5 [place] x10(3)/[facility] LABORATORY RBC 3.38 (L) 4.58 - [place] 5.54 [facility] x10(6)/[facility] LABORATORY Hemoglobin 10.1 (L) 13.7 - [place] 16.5 gm/dL [facility] Hematocrit 30.3 (L) 40.5 - [place] 48.5 % [facility] MCV 89.6 82.9 - [place] 93.1 [facility] LABORATORY MCH 29.9 27.5 - [place] 32.1 pg [facility] MCHC 33.3 32.0 - [place] 35.7 gm/dL [facility] Platelets 127 (L) 145 - 357 [place] RY[place] x10(3)/[facility] LABORATORY RDWSD 49.3 (H) 36.0 - [place] 45.0 [facility] LABORATORY RDWCV 15.2 (H) 11.4 - [place] 13.8 % [facility] MPV 9.9 7.6 - 12.9 [facility] LABORATORY nRBC % Auto 0.0 % [facility] LABOR[facility]ORY nRBC Abs Auto 0.000 0.000 - [place] DAVIS 0.000 [facility] x10(3)/[facility] LABORATORY Specimen Anatomical Collection Method Collection Time Receive d Time (Source) Location / / Volume Laterality Blood specimen 07/09/2017 2:30 AM 017 2:41 (specimen) EST AM EST Resulting Agency Comment Spec In Lab Yuan Webber MD HEMATOLOGY ORDERABLES Performing Organization Address City/State/ZIP Code Phon e Number [address] POCT Glucose (07/09/2017 2:10 AM EST) athologist Signature POC Glucose 169 65 - 199 [facility] mg/dL [facility] Comment: [...] Address City/State/ZIP Code Phon e Number [address] POCT Glucose (07/09/2017 1:01 AM EST) athologist Signature POC Glucose 173 65 - 199 [facility] mg/dL [facility] Comment: Supplemental [...] Address City/State/ZIP Code Phon e Number [address] Blood culture (07/09/2017 12:40 AM EST) [facility] [employer] Method Time Signature Blood Culture No growth [place] DAVIS at 5 days. [facility] Specimen Anatomical Collection Method Collection Time Receive d Time (Source) Location / / Volume Laterality Blood specimen STRUCTURE OF RIGHT 07/09/2017 12:40 3:58 (specimen) UPPER LIMB / AM EST AM EST Unknown Resulting Agency Comment Spec In Lab Yuan Webber MD MICROBIOLOGY - BLOOD ORDERAB LES Performing Organization Address City/[facility]/ZIP Code Phon e Number [address] Blood culture (07/09/2017 12:30 AM EST) [facility] [employer] Method Time Signature Blood Culture No growth BARBARA DAVIS at 5 days. [facility] Specimen Anatomical Collection Method Collection Time Receive d Time (Source) Location / / Volume Laterality Blood specimen STRUCTURE OF LEFT 07/09/2017 12:30 06/25 3:59 (specimen) UPPER LIMB / AM EST AM EST Unknown Resulting Agency Comment Spec In Lab Yuan Webber MD MICROBIOLOGY - BLOOD ORDERAB LES Performing Organization Address City/[facility]/[place] [address] (ABNORMAL) Urinalysis Microscopic Exam [...] Address City/State/ZIP Code Phon e Number [address] (ABNORMAL) Urinalysis with reflex Culture (07/09/2017 12:05 AM EST) Patholo gist Method Time Signature Glucose UA Negative Negative [facility]/dL [facility] Protein UA 30 (A) Negative [facility] mg/dL [facility] Bilirubin UA Negative Negative [facility] mg/dL [facility] Comment: Clinical [...] [facility] LAB[facility]ORY Leukocytes UA Negative Negative [facility] LABORATORY Appearance UA Hazy (A) Clear [facility] LABORATORY Spec [place] UA 1.025 1.002 - 1.030 [facility] LABORATORY Color UA Yellow Yellow [facility] LABORATORY Culture Reflexed No [facility] Specimen (Source) Anatomical Collection Method Collection Time Re ceived Time Location / / Volume Laterality Urine specimen 07/09/2017 12:05 7 obtained via AM EST 12:39 AM EST indwelling urinary catheter (specimen) Resulting Agency Comment Spec In Lab Yuan Webber MD URINE ORDERABLES Performing Organization Address City/State/ZIP Code Phon e Number [place] [id number] [facility] [address] Drive POCT Glucose (07/08/2017 11:01 PM EST) P athologist Signature POC Glucose 191 65 - 199 [facility] mg/dL [facility] Comment: Supplemental ranges: <140 mg/dL before meals <180 mg/dL all other times of the day Specimen Anatomical Collection Method Collection Time Receive d Time (Source) Location / / Volume Laterality Blood specimen 07/08/2017 11:01 7 (specimen) PM EST 11:01 PM EST Yuan Webber MD POINT OF CARE TEST ORDERABLE S Performing Organization Address City/State/[place] [address] POCT Glucose (07/08/2017 10:04 PM EST) P athologist Signature POC Glucose 198 65 - 199 [facility] mg/dL [facility] Comment: Supplemental ranges: <140 mg/dL before meals <180 mg/dL all other times of the day Specimen Anatomical Collection Method Collection Time Receive d Time (Source) Location / / Volume Laterality Blood specimen 07/08/2017 10:04 7 (specimen) PM EST 10:04 PM EST Yuan Webber MD POINT OF CARE TEST ORDERABLE S Performing Organization Address City/State/[place] [address] Prepare Albumin 5% in [...] Address City/State/ZIP Code Phon e Number [address] POCT Glucose (07/08/2017 8:28 PM EST) P athologist Signature POC Glucose 195 65 - 199 [facility] mg/dL [facility] Comment: Supplemental ranges: <140 mg/dL before meals <180 mg/dL all other times of the day Specimen Anatomical Collection Method Collection Time Receive d Time (Source) Location / / Volume Laterality Blood specimen 07/08/2017 8:28 PM 017 8:28 (specimen) EST PM EST Yuan Webber MD POINT OF CARE TEST ORDERABLE S Performing Organization Address City/[facility]/[place] [address] (ABNORMAL) POCT Glucose (07/08/2017 7:13 PM EST) P athologist Signature POC Glucose 220 (H) 65 - 199 [facility] mg/dL [facility] Comment: Supplemental ranges: <140 mg/dL before meals <180 mg/dL all other times of the day Specimen Anatomical Collection Method Collection Time Receive d Time (Source) Location / / Volume Laterality Blood specimen 07/08/2017 7:13 PM 017 7:13 (specimen) EST PM EST Yuan Webber MD POINT OF CARE TEST ORDERABLE S Performing Organization Address City/[facility]/[place] [address] POCT Glucose (07/08/2017 5:04 PM EST) P athologist Signature POC Glucose 147 65 - 199 [facility] mg/dL [facility] Comment: [...] Organization Address City/State/[place] [address] (ABNORMAL) BLOOD GAS 2 ARTERIAL (07/08/2017 4:13 PM EST) Analysis Performed At Patho logist Time Signature pH Art 7.38 7.35 - [facility] 7.45 [facility] pCO2 Art 36 35 - 45 [facility] LABORATORY pO2 Art 91 85 - 104 [facility] LABORATORY HCO3 Art 20.9 20.0 - [facility] 26.0 [facility] mmol/L [facility] LABORATORY BE Art -4.2 (L) -3.0 - 3.0 [facility] mmol/L [facility] Hgb Blood Gas 11.7 (L) 13.7 - [facility] 16.5 gm/dL [facility] O2HB Art 95.1 94.0 - [facility] 97.0 % [facility] COHB Art 0.6 % [place] [facility] FIO2 Art 40 % [facility]ORATORY PF Ratio Art 228 [facility] LABOR[facility]ORY Specimen Anatomical Collection Method Collection Time Receive d Time (Source) Location / / Volume Laterality Blood specimen 07/08/2017 4:13 PM 017 4:13 (specimen) EST PM EST Yuan Webber MD CHEMISTRY ORDERABLES Performing Organization Address City/State/[place] [address] POCT Glucose (07/08/2017 4:01 PM EST) athologist Signature POC Glucose 148 65 - 199 [place] RY[place] mg/dL [facility] Comment: Supplemental [...] Address City/State/ZIP Code Phon e Number [address] POCT Glucose (07/08/2017 3:21 PM EST) athologist Signature POC Glucose 118 65 - 199 [facility] mg/dL [facility] Comment: Supplemental [...] Address City/State/ZIP Code Phon e Number [address] POCT Glucose (07/08/2017 2:01 PM EST) athologist Signature POC Glucose 129 65 - 199 [place] RY[place] mg/dL [facility] Comment: Supplemental [...] Address City/State/ZIP Code Phon e Number [address] POCT Glucose (07/08/2017 11:53 AM EST) athologist Signature POC Glucose 156 65 - 199 [facility] mg/dL [facility] Comment: Supplemental ranges: <140 mg/dL before meals <180 mg/dL all other times of the day Specimen Anatomical Collection Method Collection Time Receive d Time (Source) Location / / Volume Laterality Blood specimen 07/08/2017 11:53 7 (specimen) AM EST 11:53 AM EST Yuan Webber MD POINT OF CARE TEST ORDERABLE S Performing Organization Address City/State/[place] [address] POCT Glucose (07/08/2017 11:04 AM EST) athologist Signature POC Glucose 181 65 - 199 [facility] mg/dL [facility] Comment: Supplemental ranges: <140 mg/dL before meals <180 mg/dL all other times of the day Specimen Anatomical Collection Method Collection Time Receive d Time (Source) Location / / Volume Laterality Blood specimen 07/08/2017 11:04 7 (specimen) AM EST 11:04 AM EST Yuan Webber MD POINT OF CARE TEST ORDERABLE S Performing Organization Address City/[facility]/[place] [address] (ABNORMAL) POCT Glucose (07/08/2017 9:24 AM EST) athologist Signature POC Glucose 203 (H) 65 - 199 [facility] mg/dL [facility] Comment: Supplemental ranges: <140 mg/dL before meals <180 mg/dL all other times of the day Specimen Anatomical Collection Method Collection Time Receive d Time (Source) Location / / Volume Laterality Blood specimen 07/08/2017 9:24 AM 017 9:24 (specimen) EST AM EST Yuan Webber MD POINT OF CARE TEST ORDERABLE S Performing Organization Address City/State/[place] [address] APTT (07/08/2017 8:40 AM [...] Webber MD HEMATOLOGY ORDERABLES Performing Organization Address City/[facility]/[place] [address] (ABNORMAL) Prothrombin Time (07/08/2017 [...] Organization Address City/State/[place] [address] (ABNORMAL) POCT Glucose (07/08/2017 7:38 AM EST) athologist Signature POC Glucose 232 (H) 65 - 199 [facility] mg/dL [facility] Comment: Supplemental ranges: <140 mg/dL before meals <180 mg/dL all other times of the day Specimen Anatomical Collection Method Collection Time Receive d Time (Source) Location / / Volume Laterality Blood specimen 07/08/2017 7:38 AM 017 7:38 (specimen) EST AM EST Yuan Webber MD POINT OF CARE TEST ORDERABLE S Performing Organization Address City/State/[place] [address] (ABNORMAL) POCT Glucose (07/08/2017 7:07 AM EST) athologist Signature POC Glucose 234 (H) 65 - 199 [facility] mg/dL [facility] Comment: Supplemental ranges: <140 mg/dL before meals <180 mg/dL all other times of the day Specimen Anatomical Collection Method Collection Time Receive d Time (Source) Location / / Volume Laterality Blood specimen 07/08/2017 7:07 AM 017 7:07 (specimen) EST AM EST Yuan Webber MD POINT OF CARE TEST ORDERABLE S Performing Organization Address City/State/[place] [address] (ABNORMAL) POCT Glucose (07/08/2017 6:04 AM EST) athologist Signature POC Glucose 225 (H) 65 - 199 [facility] mg/dL [facility] Comment: Supplemental ranges: <140 mg/dL before meals <180 mg/dL all other times of the day Specimen Anatomical Collection Method Collection Time Receive d Time (Source) Location / / Volume Laterality Blood specimen 07/08/2017 6:04 AM 017 6:04 (specimen) EST AM EST Yuan Webber MD POINT OF CARE TEST ORDERABLE S Performing Organization Address City/State/[place] [address] (ABNORMAL) POCT Glucose (07/08/2017 5:31 AM EST) athologist Signature POC Glucose 216 (H) 65 - 199 [place] [facility] mg/dL [facility] Comment: Supplemental ranges: <140 mg/dL before meals <180 mg/dL all other times of the day Specimen Anatomical Collection Method Collection Time Receive d Time (Source) Location / / Volume Laterality Blood specimen 07/08/2017 5:31 AM 017 5:31 (specimen) EST AM EST Yuan Webber MD POINT OF CARE TEST ORDERABLE S Performing Organization Address City/State/[place] [address] (ABNORMAL) POCT Glucose (07/08/2017 4:52 AM EST) P athologist Signature POC Glucose 257 (H) 65 - 199 [facility] mg/dL [facility] Comment: Supplemental ranges: <140 mg/dL before meals <180 mg/dL all other times of the day Specimen Anatomical Collection Method Collection Time Receive d Time (Source) Location / / Volume Laterality Blood specimen 07/08/2017 4:52 AM 017 4:52 (specimen) EST AM EST Daphne Shahid MD POINT OF CARE TEST ORDERABLE S Performing Organization Address City/[facility]/[place] [address] (ABNORMAL) BLOOD GAS 2 ARTERIAL (07/08/2017 4:04 AM EST) Analysis Performed At Patho logist Time Signature pH Art 7.30 (L) 7.35 - [facility] 7.45 [facility] pCO2 Art 41 35 - 45 [facility] mmHg [facility] pO2 Art 83 (L) 85 - 104 [facility] mmHg [facility] HCO3 Art 19.6 (L) 20.0 - [facility] 26.0 [facility] mmol/L [facility] LABORATORY BE Art -6.8 (L) -3.0 - 3.0 [facility] mmol/L [facility] Hgb Blood Gas 12.2 (L) 13.7 - [facility] 16.5 gm/dL [facility] O2HB Art 93.5 (L) 94.0 - [facility] 97.0 % [facility] COHB Art 0.4 % [facility] Comment: Noted by assembler musical instruments. FIO2 Art 40 % [facility] PF Ratio Art 208 [facility] Specimen Anatomical Collection Method Collection Time Receive d Time (Source) Location / / Volume Laterality Blood specimen 07/08/2017 4:04 AM 017 4:04 (specimen) EST AM EST Daphne Shahid MD CHEMISTRY ORDERABLES Performing Organization Address City/[facility]/[place] [address] Scan, Peripheral Blood (07/08/2017 [...] Webber MD HEMATOLOGY ORDERABLES Performing Organization Address City/[facility]/[place] [address] (ABNORMAL) Differential, Automated (07/08/2017 4:00 AM EST) [facility] Method Time Signature Neutrophils % 85.4 % [facility] Neutr Abs (ANC) 16.07 (H) 1.70 - [facility] 6.10 [facility] x10(3)/[facility] L LABORATORY Lymphocytes % 3.5 % [facility] Lymphocytes Abs 0.6 (L) 0.9 - 3.2 [facility] x10(3)/[facility] LABORATORY Monocytes % 10.4 % [facility] Monocyte Abs 2.0 (H) 0.3 - 0.9 [facility] x10(3)/[facility] LABORATORY Eosinophils % 0.0 % [facility] Eosinophils Abs 0.0 0.0 - 0.4 [facility] x10(3)/[facility] LABORATORY Basophils % 0.1 % [facility] Basophils Abs 0.0 0.0 - 0.1 [facility] x10(3)/[facility] LABORATORY Immature Gran % 0.60 [...] Address City/State/[place] [address] (ABNORMAL) Hemogram (07/08/2017 4:00 AM EST) Analysis Performed At Patho logist Time Signature WBC 18.8 (H) 4.0 - 9.5 [facility] x10(3[facility] LABORATORY RBC 4.00 (L) 4.58 - [facility] 5.54 [facility] x10(6)/[facility] LABORATORY Hemoglobin 11.9 (L) 13.7 - [facility] 16.5 gm/dL [facility] Hematocrit 35.9 (L) 40.5 - [facility] 48.5 % [facility] MCV 89.8 82.9 - [facility] 93.1 [facility] LABORATORY MCH 29.8 27.5 - [facility] 32.1 pg [facility] MCHC 33.1 32.0 - [facility] 35.7 gm/dL [facility] Platelets 232 145 - 357 [facility] x10(3)/[facility] LABORATORY RDWSD 47.6 (H) 36.0 - [place]AN 45.0 [facility] LABORATORY RDWCV 14.5 (H) 11.4 - [facility] RYAN 13.8 % [facility]ATORY MPV 9.5 7.6 - 12.9 [facility] nRBC % Auto 0.0 % [facility] nRBC Abs Auto 0.000 0.000 - [place] 0.000 [facility] x10(3)/[facility] LABORATORY Specimen Anatomical Collection Method Collection Time Receive d Time (Source) Location / / Volume Laterality Blood specimen 07/08/2017 4:00 AM 017 4:09 (specimen) EST AM EST Resulting Agency Comment Spec In Lab Yuan Webber MD HEMATOLOGY ORDERABLES Performing Organization Address City/State/[place] [address] (ABNORMAL) Electrolytes panel (07/08/2017 4:00 AM EST) P athologist Signature Sodium 139 135 - 145 [facility] mmol/L [facility] Potassium 4.7 3.5 - 5.0 [facility] mmol/L [facility] Comment: result rechecked-JLK Please note: [...] - 15 mmol/L [facility] Specimen Anatomical Collection Method Collection Time Receive d Time (Source) Location / / Volume Laterality Blood specimen 07/08/2017 4:00 AM 017 4:10 (specimen) EST AM EST Resulting Agency Comment Spec In Lab Yuan Webber MD CHEMISTRY ORDERABLES Performing Organization Address City/State/[place] [address] (ABNORMAL) Cardiac Enzymes (LEB/CGP) (07/08/2017 4:00 AM EST) P athologist Signature Troponin-T 1.88 (H) 0.00 - [facility] 0.00 ng/mL [facility] Comment: [...] additional sample may be indicated. Reference: Third [place] Definition of Myocardial Infarction. Journal of the [employer] 2012;60:1581-98 CK, Total 413 (H) 0 - 200 unit/L [facility] Comment: result rechecked-JLK Specimen Anatomical Collection Method Collection Time Receive d Time (Source) Location / / Volume Laterality Blood specimen 07/08/2017 4:00 AM 017 4:09 (specimen) EST AM EST Resulting Agency Comment Spec In Lab Yuan Webber MD CHEMISTRY ORDERABLES Performing Organization Address City/[facility]/ZIP Code Phon e Number [address] (ABNORMAL) Glucose, fasting (07/08/2017 4:00 AM EST) athologist Signature Glucose 287 (H) 65 - 99 [facility] Fasting mg/dL [facility] Comment: [...] of Diabetes Mellitus, Position Statement from the [employer]. ??Diabete s Care, Volume 33, Supplement 1, Jul 2009 Specimen Anatomical Collection Method Collection Time Receive d Time (Source) Location / / Volume Laterality Blood specimen 07/08/2017 4:00 AM 017 4:09 (specimen) EST AM EST Resulting Agency Comment Spec In Lab Yuan Webber MD CHEMISTRY ORDERABLES Performing Organization Address City/[facility]/ZIP [facility] [place] [address] (ABNORMAL) Creatinine (07/08/2017 4:00 AM EST) Analysis Performed At Patho logist Time Signature Creatinine 1.55 (H) 0.80 - [facility] 1.50 mg/dL [facility] Estimated GFR 44 (L) >=60 [facility] Comment: The reported eGFR should be multiplied b y 1.2 for patients. The MDRD is not an appropriate measure o f renal function for patients with body mass extremes or in patients with acute kidney failure. http://[employer]/DHnkdep http://[employer]/DHMCnkf Specimen Anatomical Collection Method Collection Time Receive d Time (Source) Location / / Volume Laterality Blood specimen 07/08/2017 4:00 AM 017 4:09 (specimen) EST AM EST Resulting Agency Comment Spec In Lab Yuan Webber MD CHEMISTRY ORDERABLES Performing Organization Address City/[facility]/ZIP [facility] Phon e Number [address] BUN (07/08/2017 4:00 AM EST) P athologist Signature BUN 16 10 - 20 [facility] mg/dL [facility] Specimen Anatomical Collection Method Collection Time Receive d Time (Source) Location / / Volume Laterality Blood specimen 07/08/2017 4:00 AM 017 4:09 (specimen) EST AM EST Resulting Agency Comment Spec In Lab Yuan Webber MD CHEMISTRY ORDERABLES Performing Organization Address City/[facility]/ZIP [facility] [place] [address] (ABNORMAL) POCT Glucose (07/08/2017 3:00 AM EST) P athologist Signature POC Glucose 273 (H) 65 - 199 [facility] mg/dL [facility] Comment: Supplemental ranges: <140 mg/dL before meals <180 mg/dL all other times of the day Specimen Anatomical Collection Method Collection Time Receive d Time (Source) Location / / Volume Laterality Blood specimen 07/08/2017 3:00 AM 017 3:00 (specimen) EST AM EST Daphne Shahid MD POINT OF CARE TEST ORDERABLE S Performing Organization Address City/State/[place] [address] (ABNORMAL) POCT Glucose (07/08/2017 1:57 AM EST) athologist Signature POC Glucose 288 (H) 65 - 199 [facility] mg/dL [facility] Comment: Supplemental ranges: <140 mg/dL before meals <180 mg/dL all other times of the day Specimen Anatomical Collection Method Collection Time Receive d Time (Source) Location / / Volume Laterality Blood specimen 07/08/2017 1:57 AM 017 1:57 (specimen) EST AM EST Daphne Shahid MD POINT OF CARE TEST ORDERABLE S Performing Organization Address City/State/[place] [address] (ABNORMAL) POCT Glucose (07/08/2017 1:01 AM EST) athologist Signature POC Glucose 315 (H) 65 - 199 [facility] mg/dL [facility] Comment: [...] Organization Address City/State/[place] [address] (ABNORMAL) BLOOD GAS 2 ARTERIAL (07/08/2017 12:09 AM EST) athologist Signature pH Art 7.26 7.35 - [facility] (Critical) 7.45 [facility] Comment: Noted by assembler musical instruments. pCO2 Art 41 35 - 45 mmHg [facility] pO2 Art 96 85 - 104 mmHg [facility] HCO3 Art 17.7 (L) 20.0 - 26.0 mmol/L [facility] LABORATORY BE Art -9.4 (L) -3.0 - 3.0 mmol/L [facility] Hgb Blood Gas 12.4 (L) 13.7 - 16.5 gm/dL [facility] LABORATORY O2HB Art 94.7 94.0 - 97.0 % [facility] COHB Art 0.2 % [facility] Comment: Noted by assembler musical instruments. FIO2 Art 40 % [facility] [...] Address City/State/[place] [address] (ABNORMAL) POCT Glucose (07/07/2017 10:56 PM EST) athologist Signature POC Glucose 292 (H) 65 - 199 [facility] mg/dL [facility] Comment: Supplemental [...] Address City/State/[place] [address] (ABNORMAL) BLOOD GAS 2 ARTERIAL (07/07/2017 10:04 PM EST) athologist Signature pH Art 7.22 7.35 - [facility] (Critical) 7.45 [facility] Comment: Noted by assembler musical instruments. pCO2 Art 42 35 - 45 mmHg [facility] pO2 Art 94 85 - 104 mmHg [facility] HCO3 Art 16.9 (L) 20.0 - 26.0 mmol/L [facility] LABORATORY BE Art -10.7 (L) -3.0 - 3.0 mmol/L [facility] Hgb Blood Gas 13.0 (L) 13.7 - 16.5 gm/dL [facility] LABORATORY O2HB Art 93.8 (L) 94.0 - 97.0 % [facility] COHB Art 0.7 % [facility] Comment: Noted by assembler musical instruments. FIO2 Art 40 % [facility] PF Ratio Art 235 [facility] Specimen Anatomical Collection Method Collection Time Receive d Time (Source) Location / / Volume Laterality Blood specimen 07/07/2017 10:04 7 (specimen) PM EST 10:04 PM EST Daphne Shahid MD CHEMISTRY ORDERABLES Performing Organization Address City/State/ZIP Code Phon e Number [address] (ABNORMAL) Hemoglobin (07/07/2017 10:00 PM EST) P athologist Signature Hemoglobin 12.8 (L) 13.7 - [facility] 16.5 gm/dL [facility] Specimen Anatomical Collection Method Collection Time Receive d Time (Source) Location / / Volume Laterality Blood specimen 07/07/2017 10:00 7 (specimen) PM EST 10:13 PM EST Resulting Agency Comment Spec In Lab Yuan Webber MD HEMATOLOGY ORDERABLES Performing Organization Address City/State/ZIP Code Phon e Number [address] (ABNORMAL) Potassium (07/07/2017 10:00 PM EST) P athologist Signature Potassium 3.4 (L) 3.5 - 5.0 [facility] mmol/L [facility] Comment: Please [...] Webber MD CHEMISTRY ORDERABLES Performing Organization Address City/[facility]/[place] [address] (ABNORMAL) POCT Glucose (07/07/2017 8:49 PM EST) athologist Signature POC Glucose 241 (H) 65 - 199 [facility] mg/dL [facility] Comment: Supplemental ranges: <140 mg/dL before meals <180 mg/dL all other times of the day Specimen Anatomical Collection Method Collection Time Receive d Time (Source) Location / / Volume Laterality Blood specimen 07/07/2017 8:49 PM 017 8:49 (specimen) EST PM EST Daphne Shahid MD POINT OF CARE TEST ORDERABLE S Performing Organization Address City/[facility]/[place] [address] Prepare Albumin 5% in [...] BROWN BLOOD BANK ORDERABLES Performing Organization Address City/[facility]/[place] [address] EKG 12 Lead (07/07/2017 7:17 PM EST) Component Value Ref Range Test Analysis Performed Pathologis t Method Time At Signature Ventricular rate 75 BPM MUSE SYSTEM Atrial Rate 75 BPM MUSE SYSTEM P-R Interval 168 ms MUSE SYSTEM QRS Duration 104 ms MUSE SYSTEM Q-T Interval 462 ms MUSE SYSTEM QTC Calculated 515 ms MUSE SYSTEM (Bezet) Calculated P [place] 52 degrees MUSE SYSTEM Calculated R [place] -40 degrees MUSE SYSTEM Calculated T [place] 39 degrees MUSE SYSTEM INTERPRETATION Normal sinus [...] pH Art 7.21 7.35 - [facility] (Critical) 7.45 [facility] Comment: Noted by assembler musical instruments. pCO2 Art 50 (H) 35 - 45 mmHg [facility] pO2 Art 238 (H) 85 - 104 mmHg [facility]ORY HCO3 Art 19.8 (L) 20.0 - 26.0 mmol/L [facility] LABORATORY BE Art -8.1 (L) -3.0 - 3.0 mmol/L [facility]OR[facility] Hgb Blood Gas 12.8 (L) 13.7 - 16.5 gm/dL [facility] LABORATORY O2HB Art 97.5 (H) 94.0 - 97.0 % [facility] COHB Art 0.5 % [facility] Comment: Nonsmokers: 0.5-1.5% COHB Smokers: Variable, but usually less than 10% Toxic: 20-30% COHB Lethal: Greater than 60% COHB METHB Art 0.7 <=1.5 % [facility]ORATORY Na Whole Blood 140 135 - 145 mmol/L [facility] LABORATORY K Whole Blood 3.0 (Critical) 3.5 - 5.0 mmol/L [facility] Comment: Noted by assembler musical [...] [facility] Comment: Noted by assembler musical instruments. FIO2 Art 100 % [facility]ORATORY PF Ratio Art 238 [facility] Specimen Anatomical Collection Method Collection Time Receive d Time (Source) Location / / Volume Laterality Blood specimen 07/07/2017 6:57 PM 017 6:57 (specimen) EST PM EST Daphne Shahid MD CHEMISTRY ORDERABLES Performing Organization Address City/State/[place] [address] (ABNORMAL) BLOOD GAS 2 ARTERIAL (07/07/2017 5:31 PM EST) P athologist Signature pH Art 7.29 7.35 - [facility] (Critical) 7.45 [facility] Comment: Noted by assembler musical instruments. pCO2 Art 48 (H) 35 - 45 mmHg [facility] pO2 Art 137 (H) 85 - 104 mmHg [facility] HCO3 Art 22.4 20.0 - 26.0 mmol/L [facility] LABORATORY BE Art -4.3 (L) -3.0 - 3.0 mmol/L [facility] Hgb Blood Gas 10.0 (L) 13.7 - 16.5 gm/dL [facility] LABORATORY O2HB Art 97.3 (H) 94.0 - 97.0 % [facility] COHB Art 0.3 % [facility] [...] Address City/State/[place] [address] Fibrinogen (07/07/2017 5:30 PM EST) P athologist Signature Fibrinogen 224 180 - 510 [facility] mg/dL [facility] Comment: Called [...] Perez MD HEMATOLOGY ORDERABLES Performing Organization Address [facility] Phon e Number [address] APTT (07/07/2017 5:30 [...] Perez MD HEMATOLOGY ORDERABLES Performing Organization Address [facility] [place] [address] (ABNORMAL) Prothrombin Time (07/07/2017 [...] Perez MD HEMATOLOGY ORDERABLES Performing Organization Address [facility]/[place] [address] (ABNORMAL) Hemogram (07/07/2017 5:30 PM EST) athologist Signature WBC 19.6 (H) 4.0 - 9.5 [facility] x10(3)/[facility] LABORATORY RBC 3.08 (L) 4.58 - [facility] 5.54 [facility] x10(6)/[facility] LABORATORY Hemoglobin 9.2 (L) 13.7 - [facility] 16.5 gm/dL [facility] Hematocrit 28.0 (L) 40.5 - [facility] 48.5 % [facility] Comment: This result has been called to MONICA WEINSTEIN LUISA by DONALD GROSSMAN on 07 07 2017 at 1759, and has been read back. MCV 90.9 82.9 - 93.1 [facility] LABORATORY MCH 29.9 27.5 - 32.1 pg [facility]ORATORY MCHC 32.9 32.0 - 35.7 gm/dL [facility] LABORATORY Platelets 155 145 - 357 x10(3)/[facility] LABORATORY RDWSD 46.5 (H) 36.0 - 45.0 [facility] LABORATORY RDWCV 14.1 (H) 11.4 - 13.8 % [facility] LABORATORY MPV 9.5 7.6 - 12.9 [facility] [...] Address City/State/[place] [address] Prepare Platelets, Apheresis (07/07/2017 5:00 PM EST) P athologist Signature Dispensed? Yes [facility] Specimen Anatomical Collection Method Collection Time Receive d Time (Source) Location / / Volume Laterality Blood specimen 07/07/2017 5:00 PM 017 4:58 (specimen) EST PM EST Daphne Shahid MD BLOOD BANK ORDERABLES Performing Organization Address City/State/[place] [address] Platelet count (07/07/2017 4:55 PM EST) athologist Signature Platelets 177 145 - 357 [facility] x10(3)/[facility] LABORATORY Plat Immature 1.5 0.0 - 7.4 [facility] % % [facility] Comment: Limitation of the Immature Platelet Frac tion (IPF)-May be less reliable when the platelet count is less than 24l299/u L due to statistical imprecision. The IPF [...] in a decreased state of production. References: [employer] The Clinical Value of the Immature Platelet Fraction (IPF) in Cell Recovery Document Number [id number] 12/2010 [employer] The Role of the Imm ature Platelet Fraction (IPF) in the Differential Diagnosis of Thrombocytopen ia, Document [id number] V012/04/13 P012/06 Specimen Anatomical Collection Method Collection Time Receive d Time (Source) Location / / Volume Laterality Blood specimen 07/07/2017 4:55 PM 017 5:13 (specimen) EST PM EST Resulting Agency Comment Spec In Lab Daphne Shahid MD HEMATOLOGY ORDERABLES Performing Organization Address City/[facility]/[place] [address] (ABNORMAL) Hemoglobin and Hematocrit, blood (07/07/2017 4:55 PM EST) P athologist Signature Hemoglobin 9.1 (L) 13.7 - 16.5 [facility] gm/dL [facility] Comment: This [...] Shahid MD HEMATOLOGY ORDERABLES Performing Organization Address City/[facility]/[place] [address] (ABNORMAL) BLOOD GAS 2 ARTERIAL (07/07/2017 4:38 PM EST) Analysis Performed At Patho logist Time Signature pH Art 7.37 7.35 - [facility] 7.45 [facility] pCO2 Art 44 35 - 45 [facility] mmHg [facility] pO2 Art 322 (H) 85 - 104 [facility] mmHg [facility] HCO3 Art 24.9 20.0 - [facility] 26.0 [facility] mmol/L [facility] LABORATORY BE Art -0.4 -3.0 - 3.0 [facility] mmol/L [facility] Hgb Blood Gas 10.1 (L) 13.7 - [facility] 16.5 gm/dL [facility] O2HB Art 98.7 (H) 94.0 - [facility] 97.0 % [facility] COHB Art 0.1 % [facility] Comment: Noted by assembler musical [...] Address City/State/[place] [address] (ABNORMAL) BLOOD GAS 2 VENOUS (07/07/2017 4:06 PM EST) Analysis Performed At Patho logist Time Signature pH Cody 7.31 (L) 7.32 - [facility] 7.42 [facility] pCO2 Cody 47 41 - 51 [facility] LABORATORY pO2 Cody 53 (H) 25 - 40 [facility] LABORATORY HCO3 Cody 22.7 mmol/L [facility] BE Cody -3.7 mmol/L [facility] Hgb Blood Gas 10.2 (L) 13.7 - [facility] 16.5 gm/dL [facility] O2HB [place] 81.0 % [facility] [...] [facility] Comment: Noted by assembler musical [...] [facility] BGas Source Venous [facility] Specimen Anatomical Collection Method Collection Time Receive d Time (Source) Location / / Volume Laterality Blood specimen 07/07/2017 4:06 PM 017 4:06 (specimen) EST PM EST Daphne Shahid MD CHEMISTRY ORDERABLES Performing Organization Address City/State/[place] [address] (ABNORMAL) BLOOD GAS 2 ARTERIAL (07/07/2017 4:05 PM EST) Analysis Performed At Patho logist Time Signature pH Art 7.36 7.35 - [facility] 7.45 [facility] pCO2 Art 40 35 - 45 [facility] LABORATORY pO2 Art 282 (H) 85 - 104 [facility] LABORATORY HCO3 Art 22.1 20.0 - [facility] 26.0 [facility] mmol/L [facility]ATORY BE Art -3.4 (L) -3.0 - 3.0 [facility] mmol/L [facility] Hgb Blood Gas 10.2 (L) 13.7 - [facility] 16.5 gm/dL [facility] O2HB Art 98.4 (H) 94.0 - [facility] 97.0 % [facility] COHB Art 0.3 % [place] [facility] Comment: Noted by assembler musical [...] Address City/State/[place] [address] (ABNORMAL) BLOOD GAS 2 ARTERIAL (07/07/2017 2:29 PM EST) Analysis Performed At Patho logist Time Signature pH Art 7.43 7.35 - [facility] 7.45 [facility] pCO2 Art 36 35 - 45 [facility] LABORATORY pO2 Art 221 (H) 85 - 104 [facility] LABORATORY HCO3 Art 23.2 20.0 - [facility] 26.0 [facility] mmol/L [facility] LABORATORY BE Art -1.2 -3.0 - 3.0 [facility] mmol/L [facility] Hgb Blood Gas 13.9 13.7 - [facility] 16.5 gm/dL [facility] O2HB Art 97.8 (H) 94.0 - [facility] 97.0 % [facility] COHB Art 1.1 % [place] [...] Organization Address City/State/[place] [address] Prepare Coag Factors (Non-Hemophilia) (07/07/2017 1:25 PM EST) P athologist Signature Dispensed? Yes [facility] Specimen Anatomical Collection Method Collection Time Receive d Time (Source) Location / / Volume Laterality Blood specimen 07/07/2017 1:25 PM 017 1:21 (specimen) EST PM EST Daphne Shahid MD BLOOD BANK ORDERABLES Performing Organization Address City/State/ZIP Code Phon e Number [address] Prepare RBC (07/07/2017 1:10 PM EST) athologist Signature Dispensed? Yes [facility] Specimen Anatomical Collection Method Collection Time Receive d Time (Source) Location / / Volume Laterality Blood specimen 07/07/2017 1:10 PM 017 1:05 (specimen) EST PM EST Daphne Shahid MD BLOOD BANK ORDERABLES Performing Organization Address City/State/[place] [address] POCT Glucose (07/07/2017 11:56 AM EST) athologist Signature POC Glucose 188 65 - 199 [facility] mg/dL [facility] Comment: Supplemental ranges: <140 mg/dL before meals <180 mg/dL all other times of the day Specimen Anatomical Collection Method Collection Time Receive d Time (Source) Location / / Volume Laterality Blood specimen 07/07/2017 11:56 7 (specimen) AM EST 11:56 AM EST Daphne Shahid MD POINT OF CARE TEST ORDERABLE S Performing Organization Address City/State/[place] [address] POCT Glucose (07/07/2017 11:05 AM EST) athologist Signature POC Glucose 168 65 - 199 [facility] mg/dL [facility] Comment: Supplemental ranges: <140 mg/dL before meals <180 mg/dL all other times of the day Specimen Anatomical Collection Method Collection Time Receive d Time (Source) Location / / Volume Laterality Blood specimen 07/07/2017 11:05 7 (specimen) AM EST 11:05 AM EST Daphne Shahid MD POINT OF CARE TEST ORDERABLE S Performing Organization Address City/State/[place] [address] POCT Glucose (07/07/2017 10:02 AM EST) P athologist Signature POC Glucose 191 65 - 199 [facility] mg/dL [facility] Comment: Supplemental ranges: <140 mg/dL before meals <180 mg/dL all other times of the day Specimen Anatomical Collection Method Collection Time Receive d Time (Source) Location / / Volume Laterality Blood specimen 07/07/2017 10:02 7 (specimen) AM EST 10:02 AM EST Daphne Shahid MD POINT OF CARE TEST ORDERABLE S Performing Organization Address City/State/[place] [address] POCT Glucose (07/07/2017 7:53 AM EST) athologist Signature POC Glucose 178 65 - 199 [facility] mg/dL [facility] Comment: Supplemental [...] Address City/State/ZIP Code Phon e Number [address] POCT Glucose (07/07/2017 7:03 AM EST) athologist Signature POC Glucose 188 65 - 199 [facility] mg/dL [facility] Comment: Supplemental ranges: <140 mg/dL before meals <180 mg/dL all other times of the day Specimen Anatomical Collection Method Collection Time Receive d Time (Source) Location / / Volume Laterality Blood specimen 07/07/2017 7:03 AM 017 7:03 (specimen) EST AM EST Daphne Shahid MD POINT OF CARE TEST ORDERABLE S Performing Organization Address City/State/[place] [address] (ABNORMAL) POCT Glucose (07/07/2017 6:17 AM EST) athologist Signature POC Glucose 207 (H) 65 - 199 [facility] mg/dL [facility] Comment: Supplemental ranges: <140 mg/dL before meals <180 mg/dL all other times of the day Specimen Anatomical Collection Method Collection Time Receive d Time (Source) Location / / Volume Laterality Blood specimen 07/07/2017 6:17 AM 017 6:17 (specimen) EST AM EST Daphne Shahid MD POINT OF CARE TEST ORDERABLE S Performing Organization Address City/[facility]/ZIP Code Phon e Number [address] Differential, Automated (07/07/2017 5:15 AM EST) athologist Signature Neutrophils % 69.7 % [facility] Neutr Abs (ANC) 5.32 1.70 - [facility] 6.10 [facility] x10(3)/[facility] LABORATORY Lymphocytes % 16.3 % [facility] Lymphocytes Abs 1.2 0.9 - 3.2 [facility] x10(3)/[facility] LABORATORY Monocytes % 10.5 % [facility] Monocyte Abs 0.8 0.3 - 0.9 [facility] x10(3)/[facility] LABORATORY Eosinophils % 2.5 % [facility] Eosinophils Abs 0.2 0.0 - 0.4 [facility] x10(3)/[facility] LABORATORY Basophils % 0.7 % [facility] Basophils Abs 0.0 0.0 - 0.1 [facility] x10(3)/[facility] LABORATORY Immature Gran % 0.30 % [...] 0.02 0.00 - 0.04 x10(3)/[facility] Specimen Anatomical Collection Method Collection Time Receive d Time (Source) Location / / Volume Laterality Blood specimen 07/07/2017 5:15 AM 017 5:34 (specimen) EST AM EST Resulting Agency Comment Spec In Lab Daphne Shahid MD HEMATOLOGY ORDERABLES Performing Organization Address City/State/[place] [address] (ABNORMAL) Hemogram (07/07/2017 5:15 AM EST) Analysis Performed At Patho logist Time Signature WBC 7.6 4.0 - 9.5 [facility] x10(3)/[facility] LABORATORY RBC 4.82 4.58 - [facility] 5.54 [facility] x10(6)/[facility] Hemoglobin 14.4 13.7 - [facility] 16.5 gm/dL [facility] Hematocrit 42.1 40.5 - [facility] 48.5 % [facility] MCV 87.3 82.9 - [facility] 93.1 [facility] LABORATORY MCH 29.9 27.5 - [facility] 32.1 pg [facility] MCHC 34.2 32.0 - [facility] 35.7 gm/dL [facility] Platelets 188 145 - 357 [facility] x10(3)/[facility] LABORATORY RDWSD 45.1 (H) 36.0 - [facility] 45.0 [facility] LABORATORY RDWCV 14.3 (H) 11.4 - [facility] 13.8 % [facility] MPV 9.4 7.6 - 12.9 [facility] LABORATORY nRBC % Auto 0.0 % [facility] nRBC Abs Auto 0.000 0.000 - [facility] 0.000 [facility] x10(3)/[facility] LABORATORY Specimen Anatomical Collection Method Collection Time Receive d Time (Source) Location / / Volume Laterality Blood specimen 07/07/2017 5:15 AM 017 5:34 (specimen) EST AM EST Resulting Agency Comment Spec In Lab Daphne Shahid MD HEMATOLOGY ORDERABLES Performing Organization Address City/[facility]/[place] [address] (ABNORMAL) APTT (07/07/2017 5:15 [...] Shahid MD HEMATOLOGY ORDERABLES Performing Organization Address City/[facility]/[place] [address] Magnesium (07/07/2017 5:15 AM EST) athologist Signature Magnesium 0.94 0.69 - 1.07 [facility] mmol/L [facility] Specimen Anatomical Collection Method Collection Time Receive d Time (Source) Location / / Volume Laterality Blood specimen 07/07/2017 5:15 AM 017 5:34 (specimen) EST AM EST Resulting Agency Comment Spec In Lab Daphne Shahid MD CHEMISTRY ORDERABLES Performing Organization Address City/[facility]/[place] [address] (ABNORMAL) Basic Metabolic Panel (non-fasting) (07/07/2017 5:15 AM EST) athologist Signature Glucose Lvl 203 (H) 65 - 199 [facility] mg/dL [facility] Comment: Diabetes: >=200 mg/dL plus symp toms BUN 15 10 - 20 mg/dL [facility] Creatinine 1.09 0.80 - 1.50 [...] [facility] Estimated GFR >60 >=60 [facility] Comment: The reported eGFR should be multiplied b y 1.2 for patients. The MDRD is not an appropriate measure o f renal function for patients with body mass extremes or in patients with acute kidney failure. http://Anago.Mapidy/DHnkdep http://Fly Media/DHMCnkf Specimen Anatomical Collection Method Collection Time Receive d Time (Source) Location / / Volume Laterality Blood specimen 07/07/2017 5:15 AM 017 5:34 (specimen) EST AM EST Resulting Agency Comment Spec In Lab Daphne Shahid MD CHEMISTRY ORDERABLES Performing Organization Address City/State/[place] [address] (ABNORMAL) Cardiac Enzymes (LEB/CGP) (07/07/2017 5:15 AM EST) athologist Signature Troponin-T 2.07 (H) 0.00 - [facility] 0.[facility] ng/mL [facility] Comment: [...] additional sample may be indicated. Reference: Third [place] Definition of Myocardial Infarction. Journal of the [employer] 2012;60:1581-98 CK, Total 88 0 - 200 unit/L [facility] Specimen Anatomical Collection Method Collection Time Receive d Time (Source) Location / / Volume Laterality Blood specimen 07/07/2017 5:15 AM 017 5:34 (specimen) EST AM EST Resulting Agency Comment Spec In Lab Daphne Shahid MD CHEMISTRY ORDERABLES Performing Organization Address City/State/[place] [address] POCT Glucose (07/07/2017 5:01 AM EST) P athologist Signature POC Glucose 182 65 - 199 [facility] mg/dL [facility] Comment: Supplemental [...] Address City/State/ZIP Code Phon e Number [address] POCT Glucose (07/07/2017 4:08 AM EST) P athologist Signature POC Glucose 199 65 - 199 [facility] mg/dL [facility] Comment: Supplemental ranges: <140 mg/dL before meals <180 mg/dL all other times of the day Specimen Anatomical Collection Method Collection Time Receive d Time (Source) Location / / Volume Laterality Blood specimen 07/07/2017 4:08 AM 017 4:08 (specimen) EST AM EST Daphne Shahid MD POINT OF CARE TEST ORDERABLE S Performing Organization Address City/[facility]/ZIP Code Phon e Number [address] POCT Glucose (07/07/2017 3:03 AM EST) athologist Signature POC Glucose 188 65 - 199 [facility] mg/dL [facility] Comment: Supplemental ranges: <140 mg/dL before meals <180 mg/dL all other times of the day Specimen Anatomical Collection Method Collection Time Receive d Time (Source) Location / / Volume Laterality Blood specimen 07/07/2017 3:03 AM 017 3:03 (specimen) EST AM EST Daphne Shahid MD POINT OF CARE TEST ORDERABLE S Performing Organization Address City/State/[place] [address] (ABNORMAL) POCT Glucose (07/07/2017 2:08 AM EST) athologist Signature POC Glucose 200 (H) 65 - 199 [facility] mg/dL [facility] Comment: Supplemental ranges: <140 mg/dL before meals <180 mg/dL all other times of the day Specimen Anatomical Collection Method Collection Time Receive d Time (Source) Location / / Volume Laterality Blood specimen 07/07/2017 2:08 AM 017 2:08 (specimen) EST AM EST Daphne Shahid MD POINT OF CARE TEST ORDERABLE S Performing Organization Address City/State/[place] [address] (ABNORMAL) POCT Glucose (07/07/2017 1:31 AM EST) P athologist Signature POC Glucose 209 (H) 65 - 199 [facility] mg/dL [facility] Comment: [...] Organization Address City/State/[place] [address] XR Chest PA or [...] POC Glucose 161 65 - 199 [facility] mg/dL [facility] Comment: Supplemental ranges: <140 mg/dL before meals <180 mg/dL all other times of the day Specimen Anatomical Collection Method Collection Time Receive d Time (Source) Location / / Volume Laterality Blood specimen 07/07/2017 12:07 7 (specimen) AM EST 12:07 AM EST Daphne Shahid MD POINT OF CARE TEST ORDERABLE S Performing Organization Address City/[facility]/ZIP Code Phon e Number [address] (ABNORMAL) APTT (07/07/2017 12:00 AM EST) athologist [facility] PTT 103 (H) 25 - 35 sec [...] Organization Address City/State/[place] [address] POCT Glucose (07/06/2017 9:55 PM EST) athologist Signature POC Glucose 109 65 - 199 [facility] mg/dL [facility] Comment: [...] Address City/State/ZIP Code Phon e Number [address] POCT Glucose (07/06/2017 9:04 PM EST) athologist Signature POC Glucose 120 65 - 199 [facility] mg/dL [facility] Comment: Supplemental ranges: <140 mg/dL before meals <180 mg/dL all other times of the day Specimen Anatomical Collection Method Collection Time Receive d Time (Source) Location / / Volume Laterality Blood specimen 07/06/2017 9:04 PM 017 9:04 (specimen) EST PM EST Daphne Shahid MD POINT OF CARE TEST ORDERABLE S Performing Organization Address City/State/[place] [address] POCT Glucose (07/06/2017 7:45 PM EST) athologist Signature POC Glucose 158 65 - 199 [facility] mg/dL [facility] Comment: Supplemental ranges: <140 mg/dL before meals <180 mg/dL all other times of the day Specimen Anatomical Collection Method Collection Time Receive d Time (Source) Location / / Volume Laterality Blood specimen 07/06/2017 7:45 PM 017 7:45 (specimen) EST PM EST Daphne Shahid MD POINT OF CARE TEST ORDERABLE S Performing Organization Address City/[facility]/[place] [address] Potassium (07/06/2017 7:40 PM EST) athologist Signature Potassium 3.9 3.5 - 5.0 [facility] mmol/L [facility] Comment: Please [...] Address City/State/[place] [address] (ABNORMAL) Cardiac Enzymes (LEB/CGP) (07/06/2017 7:40 PM EST) athologist Signature Troponin-T 2.27 (H) 0.00 - [facility] 0.00 ng/mL [facility] Comment: [...] additional sample may be indicated. Reference: Third [place] Definition of Myocardial Infarction. Journal of the [employer] 2012;60:1581-98 CK, Total 93 0 - 200 unit/L [facility] Specimen Anatomical Collection Method Collection Time Receive d Time (Source) Location / / Volume Laterality Blood specimen 07/06/2017 7:40 PM 017 7:52 (specimen) EST PM EST Resulting Agency Comment Spec In Lab Daphne Shahid MD CHEMISTRY ORDERABLES Performing Organization Address City/State/[place] [address] (ABNORMAL) POCT Glucose (07/06/2017 7:13 PM EST) P athologist Signature POC Glucose 200 (H) 65 - 199 [facility] mg/dL [facility] Comment: Supplemental [...] Address City/State/ZIP Code Phon e Number [address] (ABNORMAL) APTT (07/06/2017 6:15 PM EST) athologist [facility] PTT 94 (H) 25 - 35 [...] Organization Address City/State/[place] [address] (ABNORMAL) POCT Glucose (07/06/2017 6:03 PM EST) athologist Signature POC Glucose 236 (H) 65 - 199 [facility] mg/dL [facility] Comment: Supplemental ranges: <140 mg/dL before meals <180 mg/dL all other times of the day Specimen Anatomical Collection Method Collection Time Receive d Time (Source) Location / / Volume Laterality Blood specimen 07/06/2017 6:03 PM 017 6:03 (specimen) EST PM EST Daphne Shahid MD POINT OF CARE TEST ORDERABLE S Performing Organization Address City/State/[place] [address] (ABNORMAL) POCT Glucose (07/06/2017 5:01 PM EST) P athologist Signature POC Glucose 235 (H) 65 - 199 [facility] mg/dL [facility] Comment: Supplemental ranges: <140 mg/dL before meals <180 mg/dL all other times of the day Specimen Anatomical Collection Method Collection Time Receive d Time (Source) Location / / Volume Laterality Blood specimen 07/06/2017 5:01 PM 017 5:01 (specimen) EST PM EST Daphne Shahid MD POINT OF CARE TEST ORDERABLE S Performing Organization Address City/[facility]/[place] [address] (ABNORMAL) POCT Glucose (07/06/2017 4:06 PM EST) athologist Signature POC Glucose 202 (H) 65 - 199 [facility] mg/dL [facility] Comment: Supplemental ranges: <140 mg/dL before meals <180 mg/dL all other times of the day Specimen Anatomical Collection Method Collection Time Receive d Time (Source) Location / / Volume Laterality Blood specimen 07/06/2017 4:06 PM 017 4:06 (specimen) EST PM EST Daphne Shahid MD POINT OF CARE TEST ORDERABLE S Performing Organization Address City/State/[place] [address] POCT Glucose (07/06/2017 2:59 PM EST) P athologist Signature POC Glucose 178 65 - 199 [facility] mg/dL [facility] Comment: Supplemental ranges: <140 mg/dL before meals <180 mg/dL all other times of the day Specimen Anatomical Collection Method Collection Time Receive d Time (Source) Location / / Volume Laterality Blood specimen 07/06/2017 2:59 PM 017 2:59 (specimen) EST PM EST Daphne Shahid MD POINT OF CARE TEST ORDERABLE S Performing Organization Address City/[facility]/[place] [address] (ABNORMAL) Cardiac Enzymes (LEB/CGP) (07/06/2017 2:10 PM EST) P athologist Signature Troponin-T 2.34 (H) 0.00 - [facility] 0.[facility] ng/mL [facility] Comment: [...] additional sample may be indicated. Reference: Third [place] Definition of Myocardial Infarction. Journal of the [place] [employer] 2012;60:1581-98 CK, Total 101 0 - 200 unit/L [facility] Specimen Anatomical Collection Method Collection Time Receive d Time (Source) Location / / Volume Laterality Blood specimen 07/06/2017 2:10 PM 017 2:26 (specimen) EST PM EST Resulting Agency Comment Spec In Lab Daphne Shahid MD CHEMISTRY ORDERABLES Performing Organization Address City/[facility]/[place] [address] POCT Glucose (07/06/2017 2:08 PM EST) P athologist Signature POC Glucose 192 65 - 199 [facility] mg/dL [facility] Comment: Supplemental [...] Address City/State/ZIP Code Phon e Number [address] POCT Glucose (07/06/2017 1:04 PM EST) athologist Signature POC Glucose 162 65 - 199 [facility] mg/dL [facility] Comment: Supplemental [...] Address City/State/ZIP Code Phon e Number [address] POCT Glucose (07/06/2017 12:05 PM EST) athologist Signature POC Glucose 196 65 - 199 [facility] mg/dL [facility] Comment: Supplemental [...] Address City/State/ZIP Code Phon e Number [address] EKG 12 Lead (07/06/2017 12:00 PM EST) Component Value Ref Range Test Analysis Performed Pathologis t Method Time At Signature Ventricular rate 91 BPM MUSE SYSTEM Atrial Rate 91 BPM MUSE SYSTEM P-R Interval 140 ms MUSE SYSTEM QRS Duration 94 ms MUSE SYSTEM Q-T Interval 394 ms MUSE SYSTEM QTC Calculated 484 ms MUSE SYSTEM (Bezet) Calculated P [place] 36 degrees MUSE SYSTEM Calculated R [place] -19 degrees MUSE SYSTEM Calculated T [place] 104 degrees MUSE SYSTEM INTERPRETATION Normal sinus rhythm MUSE SYSTEM 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) ST & T wave abnormality, consider lateral ischemia Abnormal ECG When compared with ECG of 05-JUL-2017 20:39, No significant change was found Confirmed by MD Luci, Taurus Braun ([id number]) on 07/06/2017 5:07:33 PM Specimen Anatomical Collection Method Collection Time Receive d Time (Source) Location / / Volume Laterality 07/06/2017 12:00 07/06/2017 5:07 PM EST PM EST Daphne Shahid MD ECG ORDERABLES Performing Organization Address City/[facility]/ZIP Code Phon e Number MUSE SYSTEM ABORH [...] MD BLOOD BANK ORDERABLES Performing Organization Address City/[facility]/[place] [address] Antibody screen (07/06/2017 12:00 PM EST) [facility] [employer] Method Time Signature Ab Screen Negative [facility] LABORATORY Expires at 07/09/2017 [facility] [id number] on: [facility] Specimen Anatomical Collection Method Collection Time Receive d Time (Source) Location / / Volume Laterality Blood specimen 07/06/2017 12:00 7 (specimen) PM EST 12:24 PM EST Resulting Agency Comment Spec In Lab Daphne Shahid MD BLOOD BANK ORDERABLES Performing Organization Address City/[facility] [facility]/ZIP Code Phon e Number [address] ABO/Rh Typing (07/06/2017 12:00 [...] Organization Address City/State/[place] [address] Prothrombin Time (07/06/2017 11:24 [...] Shahid MD HEMATOLOGY ORDERABLES Performing Organization Address City/[facility]/ZIP Code Phon e Number [place] [id number] (ABNORMAL) APTT (07/06/2017 11:24 [...] Address City/State/ZIP Code Phon e Number [address] POCT Glucose (07/06/2017 11:02 AM EST) athologist Signature POC Glucose 187 65 - 199 [place] mg/dL [facility] LABORATORY Comment: Supplemental ranges: <140 mg/dL before meals <180 mg/dL all other times of the day Specimen Anatomical Collection Method Collection Time Receive d Time (Source) Location / / Volume Laterality Blood specimen 07/06/2017 11:02 7 (specimen) AM EST 11:02 AM EST Daphne Shahid MD POINT OF CARE TEST ORDERABLE S Performing Organization Address City/State/[place] [address] POCT Glucose (07/06/2017 10:18 AM EST) athologist Signature POC Glucose 193 65 - 199 [place] mg/dL [facility] LABORATORY Comment: Supplemental ranges: <140 mg/dL before meals <180 mg/dL all other times of the day Specimen Anatomical Collection Method Collection Time Receive d Time (Source) Location / / Volume Laterality Blood specimen 07/06/2017 10:18 7 (specimen) AM EST 10:18 AM EST Daphne Shahid MD POINT OF CARE TEST ORDERABLE S Performing Organization Address City/State/[place] [address] POCT Glucose (07/06/2017 9:25 AM EST) athologist Signature POC Glucose 182 65 - 199 [place] mg/dL [facility]ORATORY Comment: Supplemental ranges: <140 mg/dL before meals <180 mg/dL all other times of the day Specimen Anatomical Collection Method Collection Time Receive d Time (Source) Location / / Volume Laterality Blood specimen 07/06/2017 9:25 AM 017 9:25 (specimen) EST AM EST Daphne Shahid MD POINT OF CARE TEST ORDERABLE S Performing Organization Address City/[facility]/[place] [address] (ABNORMAL) Cardiac Enzymes (LEB/CGP) (07/06/2017 8:10 AM EST) athologist Signature Troponin-T 2.26 (H) 0.00 - [place] RYAN 0.00 ng/mL [facility] LABORATORY Comment: [...] additional sample may be indicated. Reference: Third [place] Definition of Myocardial Infarction. Journal of the [employer] 2012;60:1581-98 CK, Total 124 0 - 200 unit/L [facility] LABORATORY Specimen Anatomical Collection Method Collection Time Receive d Time (Source) Location / / Volume Laterality Blood specimen 07/06/2017 8:10 AM 017 8:23 (specimen) EST AM EST Resulting Agency Comment Spec In Lab Daphne Shahid MD CHEMISTRY ORDERABLES Performing Organization Address City/State/ZIP Code Phon e Number [place] Magnesium (07/06/2017 8:10 AM EST) athologist Signature Magnesium 0.84 0.69 - 1.07 [facility] mmol/L [facility] LABORATORY Specimen Anatomical Collection Method Collection Time Receive d Time (Source) Location / / Volume Laterality Blood specimen 07/06/2017 8:10 AM 017 8:21 (specimen) EST AM EST Resulting Agency Comment Spec In Lab Daphne Shahid MD CHEMISTRY ORDERABLES Performing Organization Address City/State/ZIP Code Phon e Number [address] (ABNORMAL) Basic Metabolic Panel (non-fasting) (07/06/2017 8:10 AM EST) athologist Signature Glucose Lvl 199 65 - 199 [facility] mg/dL [facility] LABORATORY Comment: Diabetes: >=200 mg/dL plus symp toms BUN 16 10 - 20 mg/dL [facility] LABORATORY Creatinine 1.04 0.80 - 1.50 [...] [facility] LABORATORY Estimated GFR >60 >=60 [facility] LABORATORY Comment: The reported eGFR should be multiplied b y 1.2 for patients. The MDRD is not an appropriate measure o f renal function for patients with body mass extremes or in patients with acute kidney failure. http://Anago.Mapidy/DHnkdep http://Anago.Mapidy/DHMCnkf Specimen Anatomical Collection Method Collection Time Receive d Time (Source) Location / / Volume Laterality Blood specimen 07/06/2017 8:10 AM 017 8:21 (specimen) EST AM EST Resulting Agency Comment Spec In Lab Daphne Shahid MD CHEMISTRY ORDERABLES Performing Organization Address City/[facility]/ZIP Code Phon e Number [address] POCT Glucose (07/06/2017 7:34 AM EST) athologist Signature POC Glucose 198 65 - 199 [facility] mg/dL [facility] Comment: Supplemental ranges: <140 mg/dL before meals <180 mg/dL all other times of the day Specimen Anatomical Collection Method Collection Time Receive d Time (Source) Location / / Volume Laterality Blood specimen 07/06/2017 7:34 AM 017 7:34 (specimen) EST AM EST Daphne Shahid MD POINT OF CARE TEST ORDERABLE S Performing Organization Address City/[facility]/ZIP Code Phon e Number [address] POCT Glucose (07/06/2017 7:03 AM EST) athologist Signature POC Glucose 181 65 - 199 [facility] Comment: Supplemental ranges: <140 mg/dL before meals <180 mg/dL all other times of the day Specimen Anatomical Collection Method Collection Time Receive d Time (Source) Location / / Volume Laterality Blood specimen 07/06/2017 7:03 AM 017 7:03 (specimen) EST AM EST Daphne Shahid MD POINT OF CARE TEST ORDERABLE S Performing Organization Address City/[facility]/ZIP Code Phon e Number [address] XR Chest PA or [...] Glucose 172 65 - 199 [facility] mg/dL [facility] LABORATORY Comment: Supplemental [...] Address City/State/ZIP Code Phon e Number [address] POCT Glucose (07/06/2017 5:08 AM EST) athologist Signature POC Glucose 154 65 - 199 [place] mg/dL [facility] LABORATORY Comment: Supplemental [...] Address City/State/ZIP Code Phon e Number [address] POCT Glucose (07/06/2017 4:05 AM EST) athologist Signature POC Glucose 142 65 - 199 [place] RY[place] mg/dL [facility]ORATORY Comment: Supplemental ranges: <140 mg/dL before meals <180 mg/dL all other times of the day Specimen Anatomical Collection Method Collection Time Receive d Time (Source) Location / / Volume Laterality Blood specimen 07/06/2017 4:05 AM 017 4:05 (specimen) EST AM EST Daphne Shahid MD POINT OF CARE TEST ORDERABLE S Performing Organization Address City/State/[place] [address] POCT Glucose (07/06/2017 3:00 AM EST) athologist Signature POC Glucose 116 65 - 199 [facility] RYAN mg/dL [facility]ORATORY Comment: Supplemental ranges: <140 mg/dL before meals <180 mg/dL all other times of the day Specimen Anatomical Collection Method Collection Time Receive d Time (Source) Location / / Volume Laterality Blood specimen 07/06/2017 3:00 AM 017 3:00 (specimen) EST AM EST Daphne Shahid MD POINT OF CARE TEST ORDERABLE S Performing Organization Address City/[facility]/[place] [address] [facility] [address] Potassium (07/06/2017 2:20 AM EST) athologist Signature Potassium 3.9 3.5 - 5.0 [facility] mmol/L [facility]ORAT[facility] Comment: Please [...] Shahid MD CHEMISTRY ORDERABLES Performing Organization Address City/[facility]/ZIP Code Phon e Number [address] Differential, Automated (07/06/2017 2:20 AM EST) athologist Signature Neutrophils % 72.9 % [facility] LABORATORY Neutr Abs (ANC) 5.53 1.70 - [facility] 6.10 [facility] x10(3)/[facility] LABORATORY Lymphocytes % 16.4 % [facility] LABORATORY Lymphocytes Abs 1.2 0.9 - 3.2 [facility] x10(3)/[facility] LABORATORY Monocytes % 9.4 % [facility] LABORATORY Monocyte Abs 0.7 0.3 - 0.9 [facility] x10(3)/[facility] LABORATORY Eosinophils % 0.5 % [facility] LABORATORY Eosinophils Abs 0.0 0.0 - 0.4 [facility] x10(3)/[facility] LABORATORY Basophils % 0.4 % [facility] LABORATORY Basophils Abs 0.0 0.0 - 0.1 [facility] x10(3)/[facility] LABORATORY Immature Gran % 0.40 [...] 0.03 0.00 - 0.04 x10(3)/[facility] MAR Y [facility] LABORATORY Specimen Anatomical Collection Method Collection Time Receive d Time (Source) Location / / Volume Laterality Blood specimen 07/06/2017 2:20 AM 017 2:33 (specimen) EST AM EST Resulting Agency Comment Spec In Lab Daphne Shahid MD HEMATOLOGY ORDERABLES Performing Organization Address City/State/[place] [address] (ABNORMAL) Hemogram (07/06/2017 2:20 AM EST) Analysis Performed At Patho logist Time Signature WBC 7.6 4.0 - 9.5 [facility] x10(3)/[facility] LABORATORY RBC 4.52 (L) 4.58 - [facility] 5.54 [facility] x10(6)/[facility] LABORATORY Hemoglobin 13.4 (L) 13.7 - [facility] 16.5 gm/dL [facility] LABORATORY Hematocrit 39.7 (L) 40.5 - [facility] 48.5 % [facility] LABORATORY MCV 87.8 82.9 - [facility] 93.1 [facility] LABORATORY MCH 29.6 27.5 - [facility] RYAN 32.1 pg [facility] LABORATORY MCHC 33.8 32.0 - [facility] 35.7 gm/dL [facility] LABORATORY Platelets 189 145 - 357 [facility] x10(3)/[facility] LABORATORY RDWSD 45.6 (H) 36.0 - [facility] 45.0 [facility] LABORATORY RDWCV 14.3 (H) 11.4 - [facility] RYAN 13.8 % [facility] LABORATORY MPV 9.1 7.6 - 12.9 [facility] LABORATORY nRBC % Auto 0.0 % [facility] LABORATORY nRBC Abs Auto 0.000 0.000 - [place] DAVIS 0.000 [facility] x10(3)/[facility] LABORATORY Specimen Anatomical Collection Method Collection Time Receive d Time (Source) Location / / Volume Laterality Blood specimen 07/06/2017 2:20 AM 017 2:33 (specimen) EST AM EST Resulting Agency Comment Spec In Lab Daphne Shahid MD HEMATOLOGY ORDERABLES Performing Organization Address City/State/ZIP Code Phon e Number [address] (ABNORMAL) APTT (07/06/2017 [...] Shahid MD HEMATOLOGY ORDERABLES Performing Organization Address City/[facility]/ZIP Code Phon e Number [address] POCT Glucose (07/06/2017 2:20 AM EST) P athologist Signature POC Glucose 115 65 - 199 [facility] mg/dL [facility]ORATORY Comment: Supplemental ranges: <140 mg/dL before meals <180 mg/dL all other times of the day Specimen Anatomical Collection Method Collection Time Receive d Time (Source) Location / / Volume Laterality Blood specimen 07/06/2017 2:20 AM 017 2:20 (specimen) EST AM EST Daphne Shahid MD POINT OF CARE TEST ORDERABLE S Performing Organization Address City/State/[place] [address] (ABNORMAL) Cardiac Enzymes (LEB/CGP) (07/06/2017 2:20 AM EST) P athologist Signature Troponin-T 2.13 (H) 0.00 - [place] RYAN 0.00 ng/mL [facility] LABORATORY Comment: [...] additional sample may be indicated. Reference: Third [place] Definition of Myocardial Infarction. Journal of the [employer] College [employer]iology 2012;60:1581-98 CK, Total 129 0 - 200 unit/L [facility] LABORATORY Specimen Anatomical Collection Method Collection Time Receive d Time (Source) Location / / Volume Laterality Blood specimen 07/06/2017 2:20 AM 017 2:33 (specimen) EST AM EST Resulting Agency Comment Spec In Lab Daphne Shahid MD CHEMISTRY ORDERABLES Performing Organization Address City/State/[place] [address] (ABNORMAL) Hemoglobin A1c (07/06/2017 2:20 AM EST) Analysis Performed At Patho logist Time Signature Hemoglobin A1C 6.8 (H) 4.3 - 5.6 [facility] % [facility]ORAT[facility] Comment: Reference Range: 4.3 - [...] into estimated average glucose values. ??Diabetes Care 2008:31(8):6507-3129. Specimen Anatomical Collection Method Collection Time Receive d Time (Source) Location / / Volume Laterality Blood specimen 07/06/2017 2:20 AM 017 2:34 (specimen) EST AM EST Resulting Agency Comment Spec In Lab Daphne Shahid MD CHEMISTRY ORDERABLES Performing Organization Address City/State/[place] [address] (ABNORMAL) Lipid Panel (07/06/2017 2:20 AM EST) Patholo gist Method Time Signature Chol, Total 150 <=239 [place] mg/dL [facility] LABORATORY Triglycerides 129 <=199 [facility] mg/dL [facility] LABORATORY HDL 32 (L) >=40 [place] mg/dL [facility] LABORATORY LDL Cholesterol 92 <=190 [facility] mg/dL [facility] LABOR[facility]ORY Chol/HDL Ratio 4.7 ratio [facility] LABORATORY Lipid See Note BAR[place] Interpretation [facility] LABORATORY Comment: Lipid management should be guided by a p atient? s ASCVD risk, goals and preferences. ACC/AHA Guidelines recommend high intens ity statin if clinical ASCVD or LDL greater than or equal to 190 mg/dL. http://Anago.Mapidy/ZFX-ZNF-Mgifxmegw Adults aged 40-75 with LDL 70-189 mg/dL should have their 10 year ASCVD risk estimated with the ACC/AHA ASCVD risk es timator http://tools.acc.org/DLMCG-Roev-Lnoxxuyq r/ Statin should be discussed if risk [...] Organization Address City/State/[place] [address] POCT Glucose (07/06/2017 1:09 AM EST) P athologist Signature POC Glucose 121 65 - 199 [facility] mg/dL [facility] Comment: Supplemental ranges: <140 mg/dL before meals <180 mg/dL all other times of the day Specimen Anatomical Collection Method Collection Time Receive d Time (Source) Location / / Volume Laterality Blood specimen 07/06/2017 1:09 AM 017 1:09 (specimen) EST AM EST Daphne Shahid MD POINT OF CARE TEST ORDERABLE S Performing Organization Address City/State/[place] [address] POCT Glucose (07/06/2017 12:06 AM EST) P athologist Signature POC Glucose 147 65 - 199 [place] mg/dL [facility] Comment: Supplemental ranges: <140 mg/dL before meals <180 mg/dL all other times of the day Specimen Anatomical Collection Method Collection Time Receive d Time (Source) Location / / Volume Laterality Blood specimen 07/06/2017 12:06 7 (specimen) AM EST 12:06 AM EST Daphne Shahid MD POINT OF CARE TEST ORDERABLE S Performing Organization Address City/State/[place] [address] (ABNORMAL) POCT Glucose (07/05/2017 10:56 PM EST) P athologist Signature POC Glucose 200 (H) 65 - 199 [place] RYAN mg/dL [facility] Comment: Supplemental ranges: <140 mg/dL before meals <180 mg/dL all other times of the day Specimen Anatomical Collection Method Collection Time Receive d Time (Source) Location / / Volume Laterality Blood specimen 07/05/2017 10:56 7 (specimen) PM EST 10:56 PM EST Daphne Shahid MD POINT OF CARE TEST ORDERABLE S Performing Organization Address City/State/[place] [address] (ABNORMAL) POCT Glucose (07/05/2017 10:05 PM EST) P athologist Signature POC Glucose 225 (H) 65 - 199 [place] RY[place] mg/dL [facility] Comment: Supplemental ranges: <140 mg/dL before meals <180 mg/dL all other times of the day Specimen Anatomical Collection Method Collection Time Receive d Time (Source) Location / / Volume Laterality Blood specimen 07/05/2017 10:05 7 (specimen) PM EST 10:05 PM EST Daphne Shahid MD POINT OF CARE TEST ORDERABLE S Performing Organization Address City/State/[place] [address] (ABNORMAL) POCT Glucose (07/05/2017 9:02 PM EST) P athologist Signature POC Glucose 301 (H) 65 - 199 [facility] mg/dL [facility] Comment: Supplemental ranges: <140 mg/dL before meals <180 mg/dL all other times of the day Specimen Anatomical Collection Method Collection Time Receive d Time (Source) Location / / Volume Laterality Blood specimen 07/05/2017 9:02 PM 017 9:02 (specimen) EST PM EST Daphne Shahid MD POINT OF CARE TEST ORDERABLE S Performing Organization Address City/State/[place] [address] XR Chest PA or [...] 474 ms MUSE SYSTEM (Bezet) Calculated P [place] 50 degrees MUSE SYSTEM Calculated R [place] -28 degrees MUSE SYSTEM Calculated T [place] 90 degrees MUSE SYSTEM INTERPRETATION Sinus tachycardia [...] (ANC) 9.08 (H) 1.70 - [facility] 6.10 [facility] x10(3)/[facility] L LABORATORY Lymphocytes % 7.0 % [facility] LABORATORY Lymphocytes Abs 0.7 (L) 0.9 - 3.2 [facility] x10(3)/[facility] LABORATORY Monocytes % 3.7 % [facility] LABORATORY Monocyte Abs 0.4 0.3 - 0.9 [facility] x10(3)/[facility] LABORATORY Eosinophils % 0.1 % [facility] LABORATORY Eosinophils Abs 0.0 0.0 - 0.4 [facility] x10(3)/[facility] LABORATORY Basophils % 0.2 % [facility] LABORATORY Basophils Abs 0.0 0.0 - 0.1 [facility] x10(3)/[facility] LABORATORY Immature Gran % 0.60 [...] Address City/State/[place] [address] (ABNORMAL) Hemogram (07/05/2017 8:20 PM EST) Analysis Performed At Patho logist Time Signature WBC 10.3 (H) 4.0 - 9.5 [facility] x10(3)/[facility] LABORATORY RBC 4.64 4.58 - [facility] 5.54 [facility] x10(6)/[facility] LABORATORY Hemoglobin 14.1 13.7 - [facility] 16.5 gm/dL [facility] LABORATORY Hematocrit 40.8 40.5 - [facility] 48.5 % [facility] LABORATORY MCV 87.9 82.9 - [facility] 93.1 [facility] LABORATORY MCH 30.4 27.5 - [place] OLIV[place]CK 32.1 pg [facility] LABORATORY MCHC 34.6 32.0 - [place]IV[place]CK 35.7 gm/dL [facility] LABORATORY Platelets 204 145 - 357 [facility] x10(3)/[facility] LABORATORY RDWSD 46.1 (H) 36.0 - [facility] 45.0 [facility] LABORATORY RDWCV 14.5 (H) 11.4 - [facility] RYAN 13.8 % [facility] LABORATORY MPV 9.7 7.6 - 12.9 [facility] LABORATORY nRBC % Auto 0.0 % [facility] LABORATORY nRBC Abs Auto 0.000 0.000 - BARBARA ZHAORYAN 0.000 [facility] x10(3)/[facility] LABORATORY Specimen Anatomical Collection Method Collection Time Receive d Time (Source) Location / / Volume Laterality Blood specimen 07/05/2017 8:20 PM 017 8:27 (specimen) EST PM EST Resulting Agency Comment Spec In Lab Daphne Shahid MD HEMATOLOGY ORDERABLES Performing Organization Address City/State/[place] [address] APTT (07/05/2017 8:20 PM [...] Organization Address City/State/[place] [address] (ABNORMAL) Cardiac Enzymes (LEB/CGP) (07/05/2017 8:20 PM EST) athologist Signature Troponin-T 2.11 (H) 0.00 - [place] OLIVASCK 0.00 ng/mL [facility]ORATORY Comment: [...] additional sample may be indicated. Reference: Third [place] Definition of Myocardial Infarction. Journal of the [place] [employer] 2012;60:1581-98 CK, Total 149 0 - 200 unit/L [facility] LABORATORY Specimen Anatomical Collection Method Collection Time Receive d Time (Source) Location / / Volume Laterality Blood specimen 07/05/2017 8:20 PM 017 8:27 (specimen) EST PM EST Resulting Agency Comment Spec In Lab Daphne Shahid MD CHEMISTRY ORDERABLES Performing Organization Address City/State/[place] [address] (ABNORMAL) Magnesium (07/05/2017 8:20 PM EST) P athologist Signature Magnesium 0.68 (L) 0.69 - 1.07 [facility] mmol/L [facility] LABORATORY Specimen Anatomical Collection Method Collection Time Receive d Time (Source) Location / / Volume Laterality Blood specimen 07/05/2017 8:20 PM 017 8:27 (specimen) EST PM EST Resulting Agency Comment Spec In Lab Daphne Shahid MD CHEMISTRY ORDERABLES Performing Organization Address City/State/[place] [address] (ABNORMAL) Basic Metabolic Panel (non-fasting) (07/05/2017 8:20 PM EST) P athologist Signature Glucose Lvl 321 (H) 65 - 199 [facility] mg/dL [facility] LABORATORY [...] [facility] LABOR[facility] Estimated GFR >60 >=60 [facility] LABOR[facility]ORY Comment: The reported eGFR should be multiplied b y 1.2 for patients. The MDRD is not an appropriate measure o f renal function for patients with body mass extremes or in patients with acute kidney failure. http://Anago.Mapidy/DHnkdep http://Fly Media/DHMCnkf Specimen Anatomical Collection Method Collection Time Receive d Time (Source) Location / / Volume Laterality Blood specimen 07/05/2017 8:20 PM 017 8:27 (specimen) EST PM EST Resulting Agency Comment Spec In Lab Daphne Shahid MD CHEMISTRY ORDERABLES Performing Organization Address City/State/ZIP Code Phon e [place] [address] (ABNORMAL) POCT Glucose (07/05/2017 7:32 PM EST) P athologist Signature POC Glucose 296 (H) 65 - 199 [facility] mg/dL [facility]OR[facility] Comment: Supplemental ranges: <140 mg/dL before meals <180 mg/dL all other times of the day Specimen Anatomical Collection Method Collection Time Receive d Time (Source) Location / / Volume Laterality Blood specimen 07/05/2017 7:32 PM 017 7:32 (specimen) EST PM EST Daphne Shahid MD POINT OF CARE TEST ORDERABLE S Performing Organization Address City/State/[place] [address] CARDIAC CATHETERIZATION (07/05/2017 6:47 PM EST) Anatomical Region Laterality Modality Other Specimen (Source) Anatomical Location Collection Method / Collectio n Time Received Time / Laterality Volume Narrative 07/05/2017 7:27 PM EST ?[facility] ? Cardiac Cathete rization/Intervention Report ? Patient Name: Natalya, Gregory ? Procedure Date: 07/05/2017 ? A #: [id number] ? Primary Physician: Clarisa, Jet T ? Case #: [id number] ? File Name: [id number] ? Catheterization Order Number: [id number] ? [facility] ? Final Report [place], [place] ? Patient Name: ? Gregory Natalya ?ID#: ?[id number] ? : ?1945 ? Procedure Date: ? [...] presented with: non -STEMI (w/i 7 days). [place] ?Cardiovascular Society angina c lass was IV. [...] graphy and IABP insertion in labor relations specialist. ? Jet Mckenna M.D. ? Electronically Signed by: Jet bunch M.D. ? Report Finalized: 07/05/2017 ??19:23 ? Report Last Ammended: 10/26/2017 ??10:29 ? Procedure Note Jet Mckenna MD - 10/26/2017Formatt ing of this note might be different from the original. [facility] Cardiac Catheterization/Intervention Re port Patient Name: Gregory Hoang Procedure Date: 07/05/2017 A #: [id number] Primary Physician: Jet Mckenna Case #: [id number] File Name: [id number] Catheterization Order Number: [id number] [facility] Merchandise Processor [facility] Final Report [place], [place] Patient Name: Gregory Hoang ID#: [id number] 3-9 : 1945 Procedure Date: July 05, [...] presented with: non-STEMI ( w/i 7 days). [place] [employer] Society angina class was IV. No [...] y and IABP insertion in labor relations specialist. Jet Mckenna M.D. Electronically Signed by: [...] Mccollum ? (Age): 1945(72y) Med Rec#: ? [id number] ?Sex: ?M ? Site Loc: ? [facility] ?Ht / Wt: ??173(cm)/86(kg) Pt. Loc: ?CCU ? BSA: ?2 Study Date: ?? 07/05/2017 ?Pt. Type: Inpatient Tape: ? Referring: Daphne Shahid ([id number]) Referring: MANDA ALCANTAR Reading: Blade Preston ([id number]) Ammonia Still Operator: Dayami Paula BA, [facility] [...] E-wave Vmax ?0.8 ?m/sec ? MV deceleration unux958 ?msec ? MV A-wave Vmax ?0.8 ?m/sec [...] ? Mid-Inferior ?Akinetic ? Mid-Inferoseptal ?Hypokinetic ? Flushing-Septal ? Akinetic ? Flushing-Anterior ? Hypokinetic ? Flushing-Lateral ?Hypokinetic ? Flushing-Inferior ? Akinetic ? Flushing-Tip ?Akinetic ? This report has been electronically sign ed by: _ Blade Preston MD ? 07/06/2017 08 :53:15 Images reviewed and interpretation verif ied [facility] Cardiac Ultrasound Laboratory Procedure Note Blade Preston MD - 07/06/2017Formatt ing of this note might be different from the original. Procedure: Transthoracic Echocardiogram Patient: NATALYA MCBRIDE(Age): [birth year]72y) Med Rec#: [id number] Sex: M Site Loc: [facility] Ht / Wt: 173(cm)/86(kg) Pt. Loc: CCU BSA: 2 Study Date: 07/05/2017 Pt. Type: Inpatie nt Tape: Referring: Daphne Shahid ([id number]) Referring: MANDA ALCANTAR Reading: Blade Preston ([id number]) Ammonia Still Operator: Dayami Paula BA, [facility] [...] MV E-wave Vmax 0.8 m/sec MV deceleration [id number] msec MV A-wave Vmax 0.8 m/sec MV [...] Hypokinetic Mid-Posterolateral Hypokinetic Mid-Inferior Akinetic Mid-Inferoseptal Hypokinetic Flushing-Septal Akinetic Flushing-Anterior Hypokinetic Flushing-Lateral Hypokinetic Flushing-Inferior Akinetic Flushing-Tip Akinetic This report has been electronically sign ed by: _ Blade Preston MD 07/06/2017 08:53:15 Images reviewed and interpretation verif ied [facility] Cardiac Ultrasound Laboratory Daphne Shahid MD ECHO ORDERABLES Differential, Automated (07/05/2017 4:55 PM EST) athologist Signature Neutrophils % 77.0 % [facility]OR[facility] Neutr Abs (ANC) 5.26 1.70 - [facility] 6.10 [facility] x10(3)/[facility] LABORATORY Lymphocytes % 13.3 % [facility] Lymphocytes Abs 0.9 0.9 - 3.2 [facility] x10(3)/[facility] LABORATORY Monocytes % 8.2 % [facility] Monocyte Abs 0.6 0.3 - 0.9 [facility] x10(3)/[facility] LABORATORY Eosinophils % 0.7 % [facility] Eosinophils Abs 0.0 0.0 - 0.4 [facility] x10(3)/[facility] LABORATORY Basophils % 0.4 % [facility] Basophils Abs 0.0 0.0 - 0.1 [facility] x10(3)/[facility] LABORATORY Immature Gran % 0.40 [...] 0.03 0.00 - 0.04 x10(3)/[facility] LABORATORY Specimen Anatomical Collection Method Collection Time Receive d Time (Source) Location / / Volume Laterality Blood specimen 07/05/2017 4:55 PM 017 5:24 (specimen) EST PM EST Resulting Agency Comment Spec In Lab Daphne Shahid MD HEMATOLOGY ORDERABLES Performing Organization Address City/State/[place] [address] (ABNORMAL) Hemogram (07/05/2017 4:55 PM EST) Analysis Performed At Patho logist Time Signature WBC 6.8 4.0 - 9.5 [facility] x10(3)/[facility] LABORATORY RBC 4.67 4.58 - [facility] 5.54 [facility] x10(6)/[facility] LABORATORY Hemoglobin 14.0 13.7 - [facility] 16.5 gm/dL [facility] Hematocrit 41.0 40.5 - [facility] 48.5 % [facility] LABOR[facility] MCV 87.8 82.9 - [facility] 93.1 [facility] LABORATORY MCH 30.0 27.5 - [facility] 32.1 pg [facility] LABORATORY MCHC 34.1 32.0 - [facility] 35.7 gm/dL [facility] Platelets 197 145 - 357 [facility] x10(3)/[facility] LABORATORY RDWSD 46.4 (H) 36.0 - [facility] 45.0 [facility] LABORATORY RDWCV 14.5 (H) 11.4 - [facility] 13.8 % [facility] LABORATORY MPV 9.7 7.6 - [address].9 [facility] LABORATORY nRBC % Auto 0.0 % [facility] nRBC Abs Auto 0.000 0.000 - [facility] 0.000 [facility] x10(3)/[facility] LABORATORY Specimen Anatomical Collection Method Collection Time Receive d Time (Source) Location / / Volume Laterality Blood specimen 07/05/2017 4:55 PM 017 5:24 (specimen) EST PM EST Resulting Agency Comment Spec In Lab Daphne Shahid MD HEMATOLOGY ORDERABLES Performing Organization Address City/State/[place] [address] (ABNORMAL) Cardiac Enzymes (LEB/CGP) (07/05/2017 4:55 PM EST) athologist Signature Troponin-T 1.69 (H) 0.00 - [facility] 0.00 ng/mL [facility] LABORATORY [...] additional sample may be indicated. Reference: Third [place] Definition of Myocardial Infarction. Journal of the [place] College [employer] Cardiology 2012;60:1581-98 CK, Total 191 0 - 200 unit/L [facility] LABOR[facility]ORY Specimen Anatomical Collection Method Collection Time Receive d Time (Source) Location / / Volume Laterality Blood specimen 07/05/2017 4:55 PM 017 5:56 (specimen) EST PM EST Resulting Agency Comment Spec In Lab Daphne Shahid MD CHEMISTRY ORDERABLES Performing Organization Address City/[facility]/[place] [address] (ABNORMAL) pro-Brain Natriuretic Peptide (07/05/2017 4:55 PM EST) athologist Signature ProBNP 1,598 (H) <=125 [facility] pg/mL [facility] LABORATORY Specimen Anatomical Collection Method Collection Time Receive d Time (Source) Location / / Volume Laterality Blood specimen 07/05/2017 4:55 PM 017 5:24 (specimen) EST PM EST Resulting Agency Comment Spec In Lab Daphne Shahid MD CHEMISTRY ORDERABLES Performing Organization Address City/[facility]/ZIP Code Phon e Number [address] Magnesium (07/05/2017 4:55 PM EST) athologist Signature Magnesium 0.78 0.69 - 1.07 [facility] mmol/L [facility] LABORATORY Specimen Anatomical Collection Method Collection Time Receive d Time (Source) Location / / Volume Laterality Blood specimen 07/05/2017 4:55 PM 017 5:24 (specimen) EST PM EST Resulting Agency Comment Spec In Lab Daphne Shahid MD CHEMISTRY ORDERABLES Performing Organization Address City/[facility]/[place] [address] (ABNORMAL) Basic Metabolic Panel (non-fasting) (07/05/2017 4:55 PM EST) athologist Signature Glucose Lvl 230 (H) 65 - 199 [facility] mg/dL [facility] Comment: Diabetes: >=200 mg/dL plus symp toms BUN 19 10 - 20 mg/dL [facility] LABORATORY Creatinine 1.04 0.80 - 1.50 [...] [facility] LABORATORY Estimated GFR >60 >=60 [facility] LABOR[facility]ORY Comment: The reported eGFR should be multiplied b y 1.2 for patients. The MDRD is not an appropriate measure o f renal function for patients with body mass extremes or in patients with acute kidney failure. http://[employer]/DHnkdep http://[employer]/[facility] Specimen Anatomical Collection Method Collection Time Receive d Time (Source) Location / / Volume Laterality Blood specimen 07/05/2017 4:55 PM 017 5:24 (specimen) EST PM EST Resulting Agency Comment Spec In Lab Daphne Shahid MD CHEMISTRY ORDERABLES Performing Organization Address City/[facility]/[place] [address] (ABNORMAL) APTT (07/05/2017 4:55 [...] Organization Address City/State/[place] [address] (ABNORMAL) POCT Glucose (07/05/2017 4:53 PM EST) P athologist Signature POC Glucose 208 (H) 65 - 199 [facility] mg/dL [facility] Comment: Supplemental [...] Address City/State/ZIP Code Phon e Number [address] EKG 12 Lead (07/05/2017 4:32 PM EST) Component Value Ref Range Test Analysis Performed Pathologis t Method Time At Signature Ventricular rate 97 BPM MUSE SYSTEM Atrial Rate 97 BPM MUSE SYSTEM P-R Interval 148 ms MUSE SYSTEM QRS Duration 96 ms MUSE SYSTEM Q-T Interval 364 ms MUSE SYSTEM QTC Calculated 462 ms MUSE SYSTEM (Bezet) Calculated P [place] 48 degrees MUSE SYSTEM Calculated R [place] -33 degrees MUSE SYSTEM Calculated T [place] 98 degrees MUSE SYSTEM INTERPRETATION Normal sinus [...] documented in this encounter Care Teams Manager Bridge Relationship Specialty Start Date End Date Lovely Vicente MD PCP - General 04/16/[address] [place] [address] [address] [place] [address] documented as of this encounter
--- OUTSIDE RECORDS SUMMARY | 2022-04-22 08:25 | XMS_ITS | Encounter Summary ---
:1945 [place] [address] Care Team Providers Name Role Phone Lovely Vicente MD Primary Care Provider Reason for Visit Auth/Cert Specialty Diagnoses / Procedures Referred By Contact Refer red To Contact Diagnoses STEMI (ST elevation myocardial infarction) NSTEMI STEMI Procedures CARDIAC CATHETERIZATION NAYE IPI Referral ID Status Reason Start Date Expiration Date Visits Requ ested Visits Authorized [id number] 1 1 Encounter Details Date Type Department Care Team Description 07/07/2017 Anesthesia Event Main Operating Room Yifan Jaime MD [facility] [place] [place] [address] [facility] Ginny Murray MD [facility] [place] [address] [facility] [place] [address] Anesthesia Record Procedure Summary Procedure Name [...] 2342 LDA Cath/EP Sheath 07/05/17; 0606; 8 Nigerien 07/05/17 0606 by [id number] by (Fr); Right; Femoral [place], Yane Cook, RN PIV 07/05/17; 1720; median 07/05/17 1720 by 07/11/17 2355 by vein (underside of arm), Prior, Yanet Maza, Angela Mccurdy, left; 18 gauge; removed EQUALIZER OPERATOR per policy/procedure; 07/11/17; 2355 Intra-Aortic Balloon [...] Miller, Carrie L, Type: Cuffed; ETT Size: CONSTRUCTION CARPENTERS HELPER 8 mm; Santiago Blade: 2; Notes: Asleep, [...] Murray MD - 07/08/2017 5:08 PM EST [facility] Department of Anesthesiology Post-procedure Note Patient: Don Fatima Procedure Summary Date Anesthesia Start Anesthesia Stop Room / Location 07/07/17 1335 1836 [facility] OR [facility] MAIN OR Procedure Diagnosis Surgeon Responsible Provider @CABG, USING ARTERIAL GRAFT;SINGLE ARTERIAL GRAFT (WRVU 33.75) (N/A Chest); @CABG, TWO VENOUS GRAFTS & ARTERIAL GRAFT (WRVU 7.93) (N/A Chest); ENDOSCOPIC HARVEST VEIN(S) FOR CABG (WRVU 0.31) (Right Leg) (CAD) Yuan Freitas MD Hartman, Gregg S, MD All Anesthesia Providers: Anesthesiologist: Yifan Perez MD Barrel Loader: Ginny Murray MD Most Recent Vitals: 07/08/17 [...] [facility] ENDOSCOPY ??? PRO THYROIDECTOMY 03/28/2013 THYROIDECTOMY, TOTAL OR COMPLETE performed by Manny Mcknight MD at [facility] MAIN OR Social History Substance Use [...] Appointment Cardiology Zulma Dolan MD [facility] [place], [place] [address] (Wo rk) 05/28/2022 Laboratory Appointment Lab 05/28/2022 Office Visit Cardiology Zulma Dolan MD [facility] [place] [address] Liz Poole PA [facility] [place] [address] 06/10/2022 Office Visit Dermatology Laura Scherer MD [facility] [address], [place] [address] (Wo rk) documented as of [...] mg documented in this encounter Care Teams Brazer [employer] Relationship Specialty Start Date End Date Lovely Vicente MD PCP - General 04/16/[address] [place] [address] documented as of this encounter
--- OUTSIDE RECORDS SUMMARY | 2022-04-22 08:26 | XMS_ITS | Encounter Summary ---
:1945 Author Organization [facility] [place] [address] Care Team Providers Name Role Phone Lovely Vicente MD Primary Care Provider Encounter Details Date Type Department Care Team Description 09/03/2016 Laboratory Appointment Lab at [facility] Hx of [facility] [place] [id number] Social History Tobacco Use Types Packs/Day Years [...] MD [facility] [place] [address] [place] [address] (Wo rk) 05/28/2022 Laboratory Appointment Lab 05/28/2022 Office Visit Cardiology Zulma Dolan MD [facility] [place] [address] Liz Poole PA [facility] [place] [address] 06/10/2022 Office Visit Dermatology Laura Scherer MD [facility] ER [address] GR[place], [place] [address] (Wo [...] EST) athologist Signature Thyroglobulin <0.4 <=54.9 [facility] ng/mL [facility] LABORATORY Comment: Interpret with caution. Tg levels may be unreliable and falsely low in TgAb positive samples (TgAb <20 is consistent with TgAb negativity). Serial TgAb measurements may be valuable as a surrog ate tumor marker test and should be considered (Mau LM and [employer] CA Thy roid 2003;13:1-126) A clinical cutoff [...] than those obtained with T4 withdrawal protocol ([place] BR et al. J Clin Endo Metab 1999;84:2956-5448). Assay performed using the DPC Immulite T [...] Address City/State/ZIP Code Phon e Number [address] TSH (09/03/2016 11:07 AM EST) P athologist Signature TSH 3.01 0.27 - 4.20 [facility] mcIU/mL [facility] LABORATORY Specimen Anatomical Collection Method Collection Time Receive d Time (Source) Location / / Volume Laterality Blood specimen 09/03/2016 11:07 7 (specimen) AM EST 11:22 AM EST Resulting Agency Comment Spec In Lab Luz Prescott MD CHEMISTRY ORDERABLES Performing Organization Address City/[facility]/ZIP [facility] [place] [address] documented in this encounter Visit Diagnoses Diagnosis Hx of papillary thyroid carcinoma Personal history of malignant neoplasm o f thyroid documented in this encounter Care Teams Police Lieutenant Relationship Specialty Start Date End Date Lovely Vicente MD PCP - General 04/16/[address] [place] [address] documented as of this encounter
--- OUTSIDE RECORDS SUMMARY | 2022-04-22 08:26 | XMS_ITS | Encounter Summary ---
:1945 Author Organization [facility] [place] [address] Care Team Providers Name Role Phone Lovely Vicente MD Primary Care Provider Reason for Visit Reason Comments Skin Lesion Encounter Details Date Type Department Care Team Description 11/24/2016 [facility] uncertain behavior of skin; Road IIIMD Pigmented skin lesion of uncertain natur e; [address] [facility] [place] of [place] [address] [facility] SIMÓN-DERMATOLGY [place], [place] [address] Social History Tobacco Use Types [...] or concerns, please call the office at [phone]. If it is after 5PM, or a holiday or weekend, please call [phone] and ask for the Criminal Investigative Agent on-call. documented in this encounter Progress Notes [...] 71 y.o. year old male.Established patient of [facility]. Last seen 06/05/16. Here today for new [...] encounter. Rigoberto Garcia MD Section of Dermatology [facility] documented in this encounter Plan of Treatment Upcoming Encounters Date Type Specialty Care Team Description 05/28/2022 Appointment Cardiology Zulma Dolan MD [facility] er [place] [address] (Wo rk) 05/28/2022 Laboratory Appointment Lab 05/28/2022 Office Visit Cardiology Zulma Dolan MD [facility] [place] [address] Liz Poole PA [facility] [place] [address] 06/10/2022 Office Visit Dermatology Laura Scherer MD [...] Ref Test Analysis Performed At [facility] gist Range Method Time Signature Surgical [id number] ?Location: [facility] Report The [...] Organization Address City/State/[place] [address] Specimen to Pathology (NON-OR) [...] Organization Address City/State/[place] [address] documented in this encounter Visit Diagnoses Diagnosis Neoplasm of uncertain behavior of skin Pigmented skin lesion of uncertain natur e History of melanoma Personal history of malignant melanoma o f skin documented in this encounter Care Teams Director Business Travel Relationship Specialty Start Date End Date Lovely Vicente MD PCP - General 04/16/[address] [place] [address] documented as of this encounter
--- OUTSIDE RECORDS SUMMARY | 2022-04-22 08:26 | XMS_ITS | Encounter Summary ---
:1945 [place] [address] Care Team Providers Name Role Phone Lovely Vicente MD Primary Care Provider Reason for Visit Reason Onset Date Comments Other 12/09/2016 RESULTS Encounter Details Date Type Department Care Team Description 12/09/2016 Telephone Dermatology at [facility] Halima Cadet MD Other (RESULTS) [address] [facility] [address] [facility]-DERMATOLGY [phone] [place], [place] [address] (Wo rk) Social History Tobacco [...] EDT Spoke with patient's , Kisha (personal community engagement representative). I advised her Don's pathology [...] back. She can be reached back at [phone] documented in this encounter Plan of Treatment Upcoming Encounters Date Type Specialty Care Team Description 05/28/2022 Appointment Cardiology Zulma Dolan MD [facility] Dr [place], [place] [address] (Wo rk) 05/28/2022 Laboratory Appointment Lab 05/28/2022 Office Visit Cardiology Zulma Dolan MD [facility] [place] [address] Liz Poole PA [facility] [place] [address] 06/10/2022 Office Visit Dermatology Laura Scherer MD [facility] DR [address]-DERMAT [place], [place] [address] (Wo rk) documented as of this encounter Visit Diagnoses Not on filedocumented in this encounter Care Teams Manager Care Management Relationship Specialty Start Date End Date Lovely Vicente MD PCP - General 04/16/[address] [place] [address] documented as of this encounter
--- OUTSIDE RECORDS SUMMARY | 2022-04-22 08:26 | XMS_ITS | Encounter Summary ---
:1945 Author Organization [facility] [place] [address] Care Team Providers Name Role Phone Som [place] APRN Primary Care Provider Encounter Details Date Type Department Care Team Description 04/11/2014 Procedure visit [facility]astroenterology at [facility] Esophageal reflux [facility] Luz Winchester RN (Primary Dx) [place] [address] Social History Tobacco Use Types Packs/Day Years Used Date Former Smoker Alcohol Use Standard Drinks/Week Comments No 0 (1 standard drink = 0.6 oz pure alcoho l) Sex Assigned at Date Recorded Not on file documented as of this encounter Progress Notes Adalid Can MD - 04/13/2014 3:43 PM EDT ESOPHAGEAL MANOMETRY Don Fatima Male, 69 yrs, 1945 PCP: SOM HOLLIDAY INSPECTOR HAIRSPRING TRUING: NONE STUDY DATE: 04/11/14 PROVIDER: [place] ([id number]) INDICATION Reflux; preoperative evaluation. METHODS Stationary esophageal manometry was performed with the [employer] esophageal motility system utilizing the Polygram software [...] of the esophagus. Adalid Can, PhD, MD environmental safety specialist, [facility] [employer] Section of Gastroenterology and Hepatology [facility] [place] [address] V: [phone] F: [phone] [facility]/gabriela CC/EC: PCP - staff msg copy 04/13/14 Henrique Taylor MD - fax copy 04/13/14 Luz Keller RN - 04/11/2014 8:14 AM EDT Esophageal manometry performed without difficulty and Was well tolerated. documented in this encounter Plan of Treatment Upcoming Encounters Date Type Specialty Care Team Description 05/28/2022 Appointment Cardiology Zulma Dolan MD [facility] [place] [address] (Wo rk) 05/28/2022 Laboratory Appointment Lab 05/28/2022 Office Visit Cardiology Zulma Dolan MD [facility] [place] [address] Liz Poole PA [facility] [place] [address] 06/10/2022 Office Visit Dermatology Laura Scherer MD [facility] [address] GR-DER[place], [place] [address] (Wo rk) documented as of this encounter Visit Diagnoses Diagnosis Esophageal reflux - Primary documented in this encounter Care Teams Yard Driver Relationship Specialty Start Date End Date Som [place] APRN PCP - General 01/25/13 04/15/[address] [place] [address] documented as of this encounter
--- OUTSIDE RECORDS SUMMARY | 2022-04-22 08:26 | XMS_ITS | Encounter Summary ---
:1945 Author Organization [facility] [place] [address] Care Team Providers Name Role Phone Lovely Vicente MD Primary Care Provider Reason for Visit Reason Comments Nevus excision dysplastic nevus mi d upper abdomen Encounter Details Date Type Department Care Team Description 12/03/2016 Procedure visit Dermatology at Halima Dubois Dysplastic nevus of Road MD Adrián trunk [address] [facility] [address] [facility] [phone] [address]OL[address] [place] [address] Social History Tobacco Use Types Packs/Day Years [...] Halima Cordero MD during the day at [phone] Nurse: Mira [phone] Amy After 5 PM and on weekends, please call the hospital number , and ask for the Cleaner Laboratory Equipment manager enterprise content management. documented in this encounter Progress Notes Halima Cordero MD - 12/10/2016 5:41 PM EDT Gwendolyn, Excision shows scar, there is no residual of the severely dysplastic nevus. Please notify patient and check on wound healing. Thank you, DTB Halima Cordero MD - 12/03/2016 3:00 PM EDT Images from the original note were not included. Dermatology Procedure note: Attending: Halima Cordero MD Gum Mixer: Mira James LPN Referring MD: Rigoberto Garcia [...] to call the clinic or the on-call laborer vineyard over the weekend. ??? Name of Procedure? [...] Zulma Dolan MD [facility] [place], [place] [address] (Wo rk) 05/28/2022 Laboratory Appointment Lab 05/28/2022 Office Visit Cardiology Zulma Dolan [place] [facility] [place] [address] Liz Poole PA [facility] [place] [address] 06/10/2022 Office Visit Dermatology Laura Scherer MD [facility] [address] TE[address]-[place]MAT [place], [place] [address] (Wo rk) documented as [...] Component Value Ref Test Analysis Performed At [facility] Method Time Signature Surgical [id number] ?Location: [facility] The signing pathologist has (i) examined the [...] Clinical Diagnosis: Dysplastic nevus, see previous pathology [id number] SPECIMEN PROCESSING A - Labeled/Fixative: Mid-upper abdomen, [...] Address City/State/[place] [address] Specimen to Pathology (NON-OR) (12/03/2016 3:31 PM EDT) Specimen Anatomical Collection Method Collection Time Receive d Time (Source) Location / / Volume Laterality AP Specimen 12/03/2016 3:31 PM 7 6:27 EDT PM EDT Narrative [facility] - 12/03/2016 6:27 PM EDT Specimen requisition ordered. ??Separate Pathology report to follow Resulting Agency Comment Spec In Lab Halima Cordero MD PATHOLOGY/CYTOLOGY ORDERABLE S Performing Organization Address City/State/[place] [address] documented in this encounter Visit Diagnoses Diagnosis Dysplastic nevus of trunk Benign neoplasm of skin of trunk, except scrotum documented in this encounter Care Teams Radiologic Technology Teacher Relationship Specialty Start Date End Date Lovely Vicente MD PCP - General 04/16/15 [address] [place] [address] documented as of this encounter
--- OUTSIDE RECORDS SUMMARY | 2022-04-22 08:26 | XMS_ITS | Encounter Summary ---
:1945 Author Organization [facility] Address [facility] [place] [address] Care Team Providers Name Role Phone Lovely Vicente MD Primary Care Provider Reason for Visit Reason Comments Skin Check Encounter Details Date Type Department Care Team Description 11/05/2015 Office Visit Dermatology at Rigoberto Forman benign nevi; Abdelrahman HOOPER MD Lentigines; [address] [facility] History of melanoma; [place] [address] Skin exam for malignant neoplasm [phone] [facility]-DERMATOLGY [place], [place] [address] Social History Tobacco Use Types [...] Strip by [facility]Non- Drug; Combo Route) route 2 [...] the presence of Dr. Garcia.: GINNY CHRISTIANSEN JANITORIAL MAINTENANCE WORKER and Judit Cruz, Clinical Scribe I performed the above scribed service and agree with the accuracy of the documentation in this encounter. Rigoberto Garcia MD Section of Dermatology [facility] documented in this encounter Plan of Treatment Upcoming Encounters Date Type Specialty Care Team Description 05/28/2022 Appointment Cardiology Zulma Dolan MD [facility] [address] [place], [place] [address] (Wo rk) 05/28/2022 Laboratory Appointment Lab 05/28/2022 Office Visit Cardiology Zulma Dolan MD [facility] [place] [address] Liz Poole PA [facility] [place] [address] 06/10/2022 Office Visit Dermatology Laura Scherer MD [facility] [address]DERMAT [place], [place] [address] (Wo rk) documented as of this encounter Visit Diagnoses Diagnosis Multiple benign nevi Benign neoplasm of skin, site unspecifie d Lentigines Other dyschromia History of melanoma Personal history of malignant melanoma o f skin Skin exam for malignant neoplasm Screening for malignant neoplasm of the skin documented in this encounter Care Teams Metal Cnc Operator Relationship Specialty Start Date End Date Lovely Vicente MD PCP - General 04/16/15 [facility] [address] [place] [address] (work) documented as of this encounter
--- OUTSIDE RECORDS SUMMARY | 2022-04-22 08:26 | XMS_ITS | Encounter Summary ---
:1945 Author Organization [place] [address] Care Team Providers Name Role Phone Lovely Vicente MD Primary Care Provider Reason for Visit Reason Comments Follow-up Encounter Details Date Type Department Care Team Description 06/03/2017 Office Visit Dermatology at [facility]to Forman benign nevi; Abdelrahman HOOPER MD History of melanoma; [address] [facility] History of dysplastic nevus; [place] [address] Skin exam for malignant neoplasm [phone] [facility]-DERMATOLGY [place], [place] [address] Social History Tobacco Use Types [...] Cardiology Zulma Dolan MD [facility] [place], [place] [address] (Wo rk) 05/28/2022 Laboratory Appointment Lab 05/28/2022 Office Visit Cardiology Zulma Dolan MD [facility] [place] [address] Liz Poole PA [facility] [place] [address] 06/10/2022 Office Visit Dermatology Laura Scherer MD [facility] DR [address]DERMAT [place], [place] [address] (Wo rk) documented as [...] skin documented in this encounter Care Teams Body Builder Relationship Specialty Start Date End Date oLvely Vicente MD PCP - General 04/16/15 [facility] [address] [place] [address] documented as of this encounter
--- OUTSIDE RECORDS SUMMARY | 2022-04-22 08:26 | XMS_ITS | Encounter Summary ---
:1945 Author Organization [facility] [address] Care Team Providers Name Role Phone Lovely Vicente MD Primary Care Provider Reason for Visit Reason Comments Skin Check Encounter Details Date Type Department Care Team Description 06/05/2016 Office Visit Dermatology at [facility] istory of melanoma; Abdelrahman HOOPER MD Seborrheic keratosis; [address] [facility] [place] (actinic keratosis); [place] [address] Multiple nevi; [phone] [facility] [address]-DERMATOLGY [place], [place] [address] Social History Tobacco Use Types [...] Diagnostic, Drum (ACCU-CHEK COMPACT TEST) Strip by [facility] [place] [place].(Non- Drug; Combo Route) route 2 times daily. [...] Zulma Dolan MD [facility] [place], [place] [address] (Wo rk) 05/28/2022 Laboratory Appointment Lab 05/28/2022 Office Visit Cardiology Zulma Dolan MD [facility] [address] Liz Poole PA [facility] [place] [address] 06/10/2022 Office Visit Dermatology Laura Scherer MD [facility] [address]DER[address] [place], [place] [address] (Wo rk) documented as of this encounter Visit Diagnoses Diagnosis History of melanoma Personal history of malignant melanoma o f skin Seborrheic keratosis Other seborrheic keratosis [place] (actinic keratosis) Actinic keratosis Multiple nevi Benign neoplasm of skin, site unspecifie d Scar Scar condition and fibrosis of skin documented in this encounter Care Teams Solution Architect Relationship Specialty Start Date End Date Lovely Vicente MD PCP - General 04/16/[address] [place] [address] documented as of this encounter
--- OUTSIDE RECORDS SUMMARY | 2022-04-22 08:26 | XMS_ITS | Encounter Summary ---
:1945 Author Organization [place] [address] Care Team Providers Name Role Phone Lovely Vicente MD Primary Care Provider Reason for Visit Reason Onset Date Comments Medication Refill 12/24/2016 Encounter Details Date Type Department Care Team Description 12/24/[address] [facility] Luz Stallings MD [facility] [place] [address] ENDOCRINOLOGY DEPT [phone] [place], [place] [address] (Wo rk) Social History Tobacco [...] [facility] [place] [address] [place] [address] (Wo rk) 05/28/2022 Laboratory Appointment Lab 05/28/2022 Office Visit Cardiology Zulma Dolan MD [facility] [place] [address] Liz Poole PA [facility] [place] [address] 06/10/2022 Office Visit Dermatology Laura Scherer MD [facility] [address] [place], [place] [address] (Wo rk) documented as of this encounter Visit Diagnoses Not on filedocumented in this encounter Care Teams Copper Roller Handler Printing Relationship Specialty Start Date End Date Lovely Vicente MD PCP - General 04/16/[address] [place], [place] [address] documented as of this encounter
--- OUTSIDE RECORDS SUMMARY | 2022-04-22 08:26 | XMS_ITS | Encounter Summary ---
:1945 Author Organization [facility] [address] Care Team Providers Name Role Phone Lovely Vicente MD Primary Care Provider Reason for Visit Reason Comments Medication Refill Encounter Details Date Type Department Care Team Description 05/10/2015 Refill Endocrinology at [facility] Rosalind Covarrubias, [facility] [place] [address] [facility] [phone] ENDOCRINOLOGY [place], [place] [address] (Wo rk) Social History Tobacco [...] MD [facility] er [address] [place], [place] [address] (Wo rk) 05/28/2022 Laboratory Appointment Lab 05/28/2022 Office Visit Cardiology Zulma Dolan MD [facility] [place] [address] Liz Poole PA [facility] [place] [address] 06/10/2022 Office Visit Dermatology Laura Scherer MD [facility] ER [address]DERMAT [place], [place] [address] (Wo rk) documented as of this encounter Visit Diagnoses Not on filedocumented in this encounter Care Teams Upset Operator Relationship Specialty Start Date End Date Lovely Vicente MD PCP - General 04/16/[address] [place] [address] documented as of this encounter
--- OUTSIDE RECORDS SUMMARY | 2022-04-22 08:26 | XMS_ITS | Encounter Summary ---
:1945 Author Organization [facility] [place] [address] Care Team Providers Name Role Phone Lovely Vicente MD Primary Care Provider Reason for Visit Reason Onset Date Comments Pre Procedure Call 12/02/2016 Encounter Details Date Type Department Care Team Description 12/02/2016 Telephone Dermatology at [facility] Mira James LPN Pre Procedure Call [address] [place] [address] Social History Tobacco Use Types Packs/Day [...] Zulma Dolan MD [facility] [place], [place] [address] (Wo lissa) 05/28/2022 Laboratory Appointment Lab 05/28/2022 Office Visit Cardiology Zulma Dolan MD [facility] [place] [address] Liz Poole PA [facility] [place] [address] 06/10/2022 Office Visit Dermatology Luara Scherer MD [facility] [address]DERMAT [place], [place] [address] (Wo rk) documented as of this encounter Visit Diagnoses Not on filedocumented in this encounter Care Teams Powder Blender And Pourer Relationship Specialty Start Date End Date Lovely Vicente MD PCP - General 04/16/[address] [place] [address] documented as of this encounter
--- OUTSIDE RECORDS SUMMARY | 2022-04-22 08:26 | XMS_ITS | Encounter Summary ---
:1945 Author Organization [facility] [place] [address] Care Team Providers Name Role Phone Lovely Vicente MD Primary Care Provider Encounter Details Date Type Department Care Team Description 07/05/2017 Telephone Cardiology Kim Galindo MD [facility] [place] [address] CARDIOLOGY DEPT [phone] [place], [place] [address] (Wo rk) Social History [...] 1:54pm Referring Provider: Ivania CROWELL) Patient Location: [facility] Presenting Symptoms per OSH: 72 year old [...] infarct and elevated troponin, transport patient to [facility] for cath this afternoon and arrhythmia monitoring. Kim Galindo MD Branch Mechanic documented in this encounter Plan of Treatment Upcoming Encounters Date Type Specialty Care Team Description 05/28/2022 Appointment Cardiology Zulma Dolan MD [facility] [place], [place] [address] (Wo rk) 05/28/2022 Laboratory Appointment Lab 05/28/2022 Office Visit Cardiology Zulma Dolan MD [facility] [place] [address] Liz Poole PA [facility] [place] [address] 06/10/2022 Office Visit Dermatology Laura Scherer MD [facility] [address] GR[address]DERMAT [place], [place] [address] (Wo rk) documented as of this encounter Visit Diagnoses Not on filedocumented in this encounter Care Teams Level Vial Inspector And Tester Relationship Specialty Start Date End Date Lovely Vicente MD PCP - General 04/16/[address] [place] [address] documented as of this encounter
--- OUTSIDE RECORDS SUMMARY | 2022-04-22 08:26 | XMS_ITS | Encounter Summary ---
:1945 Author Organization [facility] [place] [address] Care Team Providers Name Role Phone Lovely Vicente MD Primary Care Provider Encounter Details Date Type Department Care Team Description 11/28/2016 Telephone Dermatology at [facility] Rigoberto Garcia III, [address] [place] [address] [facility] [phone] [facility] SIMÓN-DERMAT [place], [place] [address] (Wo rk) Social History [...] provider. Rigoberto Garcia MD Section of Dermatology [facility] documented in this encounter Plan of Treatment Upcoming Encounters Date Type Specialty Care Team Description 05/28/2022 Appointment Cardiology Zulma Dolan MD [facility] [address] [place], [place] [address] (Wo rk) 05/28/2022 Laboratory Appointment Lab 05/28/2022 Office Visit Cardiology Zulma Dolan MD [facility] [place] [address] Liz Poole PA [facility] [place] [address] 06/10/2022 Office Visit Dermatology Laura Scherer MD [facility] [address] TE[address] [place]IE-DERMAT [place], [place] [address] (Wo rk) documented as of this encounter Visit Diagnoses Not on filedocumented in this encounter Care Teams Asphalt Roller Operator Relationship Specialty Start Date End Date Lovely Vicente MD PCP - General 04/16/[address] [place] [address] documented as of this encounter
--- OUTSIDE RECORDS SUMMARY | 2022-04-22 08:26 | XMS_ITS | Encounter Summary ---
:1945 Author Organization [facility] [place] [address] Care Team Providers Name Role Phone Lovely Vicente MD Primary Care Provider Encounter Details Date Type Department Care Team Description 07/10/2016 Telephone Dermatology at [facility] Rigoberto White III, [address] [place] [address] [facility] [phone] [facility] MAR[facility]-DERMAT [place], [place] [address] (Wo rk) Social History Tobacco [...] Zulma Dolan MD [facility] [address] [place], [place] [address] (Wo rk) 05/28/2022 Laboratory Appointment Lab 05/28/2022 Office Visit Cardiology Zulma Dolan MD [facility] [place] [address] Liz Poole PA [facility] [place] [address] 06/10/2022 Office Visit Dermatology Laura Scherer MD [facility] DR TE[address] MARIE-DERMAT [place], [place] [address] (Wo rk) documented as of this encounter Visit Diagnoses Not on filedocumented in this encounter Care Teams Makeup Artist Relationship Specialty Start Date End Date Lovely Vicente MD PCP - General 04/16/15 [facility] [address] [place] [address] documented as of this encounter
--- OUTSIDE RECORDS SUMMARY | 2022-04-22 08:26 | XMS_ITS | Encounter Summary ---
:1945 [place] [address] Care Team Providers Name Role Phone Lovely Vicente MD Primary Care Provider Reason for Visit Auth/Cert Specialty Diagnoses / Procedures Referred By Contact Refer red To Contact Diagnoses STEMI (ST elevation myocardial infarction) NSTEMI STEMI Procedures CARDIAC CATHETERIZATION NAYE IPI Referral ID Status Reason Start Date Expiration Date Visits Requ ested Visits Authorized [id number] 1 1 Encounter Details Date Type Department Care Team Description 07/05/2017 Surgery Automation Machine Operator Jet Guan, CARDIAC CATHETERIZATION [facility] [place] [address] CARDIOLOGY DEPT. [phone] [place], [place] [address] (Wo rk) Social History Tobacco [...] this encounter Discharge Summaries Martha Teague S, COMMUNITY MUSIC THERAPIST - 07/14/2017 9:38 AM EST Inpatient - Discharge Summary Patient Name: Gregory Hoang Patient Age: 72 y.o. Birthdate: 1945 Language: Liberian Race: White Ethnicity: Not nor Admit Date: [...] , @ 1:20p Patient to follow-up with Roof Tiler/heart failure team in one week. An appointment will be made for you. You may call [phone] Patient to follow-up with Cardiac Surgery, Dr. Yuan Webber, in ~ 4 weeks with CXR, EKG. Inpatient Provider Contact Information: [facility] Section of Cardiac Surgery [facility] [address] FAX [phone] Discharge Diagnoses (Hospital Problems) Primary Diagnoses: CAD [...] by mouth daily. 90 tablet 3 07/05/2017 [id number] ??? ascorbic acid, vitamin C, (VITAMIN C) [...] hospital and ruled infor non-ST segment elevation VT. This almost certainly represents the residual of [...] course, he was taken emergently to the photo lab specialist for an ongoing STEMI. An IABP [...] not take or discontinue any prescription or bsoh-ozt-qnillnf medications without asking your doctor or pharmacist [...] to have your insulin doses adjusted. [facility] Endocrine clinic office Discharge Instructions: Call your doctor if: You have a fever of greater than 101 degrees, shaking chills, if you develop redness or drainage from your incision sites, or if you have questions. Please call your surgeon's office if you have any discharge or drainage from your chest incision. Your surgeon, Dr. Yuan Webber and/or the Cardiac Surgery Physician Fish Dressing Machine Feeder Team may be reached at . Weight: [...] Dr. Yuan Webber. You may use a [place] Track or treadmill but avoid any pulling [...] friends, go to a movie, go to moravian, etc. Heavy activities: No hunting, skiing, jogging, snow shoveling, snowmobiling, lawn mowing, swimming, golf or tennis until after your return appointment with the surgeon. Do not ride motorcycles, [employer] tractors or horses. Avoid the use of [...] should resume a low fat, low cholesterol, [employer] Heart Association Diet/Diabetic diet. Driving: No driving [...] , @ 1:20p Patient to follow-up with Roof Tiler/heart failure team in one week. Appointment will be made for you. You may call [phone] Patient to follow-up with Cardiac Surgery, Dr. [...] THREE L Lab 3L [facility] [phone] 09/07/2017 4:00 PM Luz Prescott MD Endocrinology at [place] [phone] Future Orders Complete By Expires EKG 12 Lead [EKG1 Custom] 08/14/2017 02/13/2018 Process Instructions: Scheduling Instructions: Questions: Which DH location will this be performed?: [place] Is a rhythm strip needed?: No If EKG Reason is Pre-op Evaluation, indicate diagnosis for surgery.: XR Chest PA & Lateral (Generic) [[id number] Custom] 08/14/2017 02/13/2018 Process Instructions: Scheduling Instructions: Questions: Where will study be performed?: [facility] Portable exam?: Reason for exam and clinical history: CABG x 3 Other pertinent information: Stat read required?: Date of injury if applicable: Requested Time: Referral to Cardiac Rehab [IVU337 Custom] As directed Process Instructions: If no progress note charted, please enter Clinical details in comments. Scheduling Instructions: Questions: My question or request is: s/p CABG. Cardiac rehab at [facility] Referral to Home Health - at DISCHARGE [TRV5287 CPT(R)] As directed Process Instructions: Scheduling Instructions: Comments: DOCUMENTATION FOR VNA SERVICES (INCLUDING THOSE PATIENTS WITH MEDICARE COVERAGE REQUIRING HOME VNA SERVICES AND/OR HOSPICE SERVICES) PATIENT'S LOCATION: Gregory Hoang [address] [place] [address] [place] [address] (home) Telephone Information: Fine Grader's Name: self In discussion with the attending physician, it is certified that this patient is under their care and that they, or a Nurse Practitioner, or Physician Fish Dressing Machine Feeder who is working directly with them, had [...] HEALTH AGENCY: [facility] ([facility] [place] [facility]-is in [place] PHONE: [phone] FAX: [phone] RN orders: Cardiopulmonary assessment, incisional assessment, assess vital signs, assessment of rehab progress, medication management and effectiveness, home safety evaluation. Please draw INR if indicated and send result to:Dr Vicente [phone] PT ORDERS: Continue rehab for endurance, gait stability and strength with mobility and transfers. Home safety evaluation. Home exercise program if appropriate. Start of Care Date:24-48 hours after discharge SPECIAL INSTRUCTIONS: For any follow up questions, needs, or issues please call the Cardiac Surgery Office at [phone] FOR MEDICARE ONLY: (please delete this section [...] AFTER 07/17/2017 Signed: Martha Teague APRN [facility] Section of Cardiac Surgery [facility] [address] FAX [phone] Date: 07/14/2017 CC: MD Ivania Cr Betsy, PA [address] [place] [phone] documented in this encounter Discharge Instructions Discharge [...] to have your insulin doses adjusted. [facility] Endocrine clinic office Patient InstructionsStMartha [...] not take or discontinue any prescription or yhnh-chk-ywgbzev medications without asking your doctor or pharmacist [...] to have your insulin doses adjusted. [facility] Endocrine clinic office ? Discharge [...] Yuan Webber and/or the Cardiac Surgery Physician Fish Dressing Machine Feeder Team may be reached at . ?? [...] Dr. Yuan Webber. You may use a [place] Track or treadmill but avoid any pulling [...] friends, go to a movie, go to moravian, etc. ?? Heavy activities: No hunting, skiing, jogging, snow shoveling, snowmobiling, lawn mowing, swimming, golf or tennis until after your return appointment with the surgeon. Do not ride motorcycles, [employer]'s tractors or horses. Avoid the use [...] should resume a low fat, low cholesterol, [employer] Heart Association Diet/Diabetic diet. ?? Driving: No [...] @ 1:20p ?? Patient to follow-up with Roof Tiler/heart failure team in one week. An appointment has been made for you, you can call [phone] ?? Patient to follow-up with Cardiac Surgery, [...] THREE L Lab 3L [facility] [phone] ?? 09/07/2017 4:00 PM Luz Prescott MD Endocrinology at [place] [phone] Future Orders Complete By Expires ?? EKG 12 Lead [EKG1 Custom] 08/14/2017 02/13/2018 ?? Process Instructions: ? Scheduling Instructions: ? Questions: ? Which location will this be performed?: [place] ?? Is a rhythm strip needed?: No ?? If EKG Reason is Pre-op Evaluation, indicate diagnosis for surgery.: ?? XR Chest PA & Lateral (Generic) [[id number] Custom] 08/14/2017 02/13/2018 ?? Process Instructions: ? Scheduling Instructions: ? Questions: ? Where will study be performed?: [facility] ?? Portable exam?: ?? Reason for exam and clinical history: CABG x 3 ?? Other pertinent information: ?? Stat read required?: ?? Date of injury if applicable: ?? Requested Time: ?? Referral to Cardiac Rehab [WXL599 Custom] As directed ? Process Instructions: ?? [...] - 07/14/2017 2:34 PM EST The patient/guest services representative has been provided a list of Home Health Agencies/DME vendors which serve their preferred geographic area. A letter describing our affiliations was reviewed with them and theywere educated about their right to choose where referrals are placed. Patient requests referral to [facility] [employer]. PHONE: [phone] FAX: [phone] Expected date of discharge: 07/14 Referral routed to the [facility] for matching with agency/vendor and to provide [...] to have your insulin doses adjusted. [facility] Endocrine clinic office Kathie Carrera APRN [facility] Endocrinology Diabetes Management Pager [phone] minutes of this 35 minute visit was spent with the patient in counseling on diabetes and treatment plan, reviewing all glucose and insulin data as well as relevant laboratory results with the patient, and coordination of care on the inpatient unit including nursing and primary team. Zulma Andres RN - 07/14/2017 10:30 AM EST The patient/guest services representative has been provided a list of Home Health Agencies/DME vendors which serve their preferred geographic area. A letter describing our affiliations was reviewed with them and theywere educated about their right to choose where referrals are placed. Patient requests referral to : [facility] ([facility] [place] [facility]-is in [place] PHONE: [phone] FAX: [phone]. Expected date of discharge: 07/14/17 Referral routed to the [facility] for matching with agency/vendor and to provide [...] continue to follow Katerin Azul APRN [facility] Endocrinology Diabetes Management Pager [phone] minutes of this 25 minute visit [...] of infiltration/extravasation Discussed plan of care with STATISTICAL METHODS PROFESSOR and RN. Elevate exrtemity and apply [...] measuring tape and identifier in the photo) PELOTA MAKER CARING FOR THIS PATIENT WILL CONTINUE TO [...] measuring tape and identifier in the photo) PELOTA MAKER CARING FOR THIS PATIENT WILL CONTINUE TO [...] to both infiltrates addressed by this writer editor.All of Mr. Hoang's responses were entirely appropriate. Images of infiltrates attached here. Martha Sharp APRN - 07/13/2017 8:01 AM EST Cardiac Surgery Progress Note: ID: [id number] 72 year old male POD#6 s/p CABGx3 [...] ?? I have met with the patient/guest services representative to discuss discharge planning needs. I have provided the [facility], Office of Care Management letter from the Baggage Security Checker pertaining to rehab referrals. I have also provided a letter describing our affiliations within the [facility] and educated them about their right to choose where referrals are placed. ?? I reviewed the different levels of rehab including SNF, swing, acute and LTAC with the patient/guest services representative. ?? The patient/guest services representative has been provided a list of facilities within their preferred geographic area. ?? I have requested that the patient/guest services representative provide at least three choices for referral. ?? The patient/guest services representative have requested referrals to: ?? 1. . ?? 2. [facility] ?? 3. More to be entered ?? Expected date of discharge: 07/14 Note routed to [facility] who will communicate referrals to facilities and [...] hours. If BG remains greater than 240, [id number] units (no more than three times) & [...] continue to follow Katerin Azul APRN [facility] Endocrinology Diabetes Management Pager [phone] minutes of this 35 minute visit was spent with the patient in counseling on diabetes and treatment plan, reviewing all glucose and insulin data as well as relevant laboratory results with the patient, and coordination of care on the inpatient unit including nursing and primary team. Makayla Stevenson APRN - 07/12/2017 9:52 AM EST Cardiac Surgery Progress Note: ID: [id number] 72 year old male POD#5 s/p CABGx3 [...] hours. If BG remains greater than 240, [id number] units (no more than three times) & [...] AM EST Cardiac Surgery Progress Note: ID: [id number] 72 year old male POD#4 s/p CABGx3 [...] AM EST Cardiac Surgery Progress Note: ID: [id number] 72 year old male POD#3 s/p CABGx3 [...] Gas) No results found for: PHART, PO2ART, ZXM0RGX Assessment/Plan: 72 year old male POD#3 s/p [...] Thao - 07/09/2017 6:29 PM EST Clinical Appeals Reviewer Encounter Note Patient Name: Gregory Hoang : [id number] MR#: [id number] Admit Date: 07/05/2017 4:20 PM Hospital Day 4 days Narrative: Patient was sitting in chair, hugging heart pillow, opened his eyes, nodding to come into room Assessment: Patient was sleepy. Intervention and Outcome: Introduced drum drier services and patient reached his hand out in appreciation. Follow-up: Clinical Appeals Reviewer remains available for support. Time in Direct [...] 10:45 AM EST Report given to staff consultant to cover care Maddison Cee PA - 07/09/2017 9:00 AM EST Cardiac Surgery Progress Note: ID: [id number] 72 year old male POD#2 s/p CABGx3 [...] when IABP d/c'ed. Gretchen Carolina, PT Pager [phone] Maddison Cee PA - 07/08/2017 11:27 AM EST Cardiac Surgery Progress Note: ID: [id number] 72 year old male POD#1 s/p CABGx3 [...] in place in R femoral. No hematoma. INSURANCE VERIFICATION REPRESENTATIVE- Intact Psych- Anxious Skin- Dry, no peripheral [...] intact. IABP in place in R femoral. INSURANCE VERIFICATION REPRESENTATIVE- Intact Psych- Anxious Skin- Dry, no peripheral [...] Rmaírez MD, PGY-1 Cardiology S1 (pgr. [phone]) . [...] note for details. DAPHNE SHAHID MD Pager [phone] ClarisaJet lynn MD - 07/05/2017 6:48 PM EST Preliminary Cardiac Catheterization Procedure Note: Procedure(s) performed: Left heart cath, IABP insertion Access: Right FRENCH PASTRY COOK-->8fr IABP A time-out was conducted prior to [...] effect. Heparin gtt maintained. Pt transferred to photo lab specialist. documented in this encounter H&P Notes Daphne Shahid MD - 07/05/2017 6:08 PM EST CARDIOLOGY HISTORY & PHYSICAL EXAM Date of Admission: 07/05/2017 ( Hospital Day 0 days ) Responsible Attending: Daphne Shahid MD PCP: Lovely Vicente MD PCP#: [phone] Patient Active Problem List Diagnosis Code ??? [...] load with heparin drip and transferred to [facility]. While there, continued sob, question of chest pain. Stat TTE showing WMA diffusely and EF around 20%. No significant valvular disease. Taken to the photo lab specialist urgently for ongoing STEMI. [facility] [...] monitor I/O - s/p lasix in the photo lab specialist, redose to aim net neg 1L [...] Medicine, PGY-2 Cardiology S1, Team Pager # [phone] CARDIOLOGY ATTENDING NOTE Patient: Gregory Hoang Date [...] amenable for PCI. DAPHNE SHAHID MD Pager [phone] documented in this encounter Miscellaneous Notes Consult Note - Daphne Shahid MD - 07/14/2017 11:46 AM EST Heart Failure Service Inpatient Consult Note Gregory Hoang Date of : 1945 Age: 72 y.o. Today's date: 07/14/17 PCP: Lovely Vicente MD WARP DYEING VAT TENDER: None [facility] [place] [facility] Reason [...] MD at [facility] Outpt Meds: Current Outpatient [...] following studies: EKG 07/14/17: NSR 75 bpm, FLAME BRAZING MACHINE OPERATOR anterior infarct, LAD CXR 07/11/17: FINDINGS: Sternotomy wires. The patient has been extubated, left chest tube removed, and Mccalla-Suzi catheter removed since the 07/07/2017 study. Atelectasis [...] was discussed with Kono. Jaden Kelley MD Central Supply Technician Supervisor Pager [phone] CARDIOLOGY ATTENDING NOTE Patient: Gregory Hoang Date [...] heart failure clinic. DAPHNE SHAHID MD Pager [phone] Plan of Care - Alden Chavarria PTA [...] home with assist Alden Chavarria PTA Pager: [phone] Inpatient Physical Therapy Problem: Acute Rehab Services [...] sit/sit to supine -- Bed Mobility Goal, [place] Level supervision required -- Bed Mobility Goal, [...] - 3 days -- Gait Training Goal, [place] Level supervision required -- Gait Training Goal, [...] days -- Transfer Training Goal, Activity Type nnf-dy-sidvf/ilkti-tu-gru;yub-kb-zmnvz/xxqfm-kz-pwj;toilet -- Transfer Train Goal, [place] Level supervision required -- Transfer Training Goal, Additional Goal adheres to sternal precautions during transfer -- Transfer Training Goal, Outcome -- goal met Plan of Care - Deince Jacobson RN - 07/14/2017 4:55 AM EST [...] keeping present for 2 days per family. Superintendent Commissary noted of frustrations, house keeping sent to room. Patient offered showered twice, refused. at bedside, frustrated that shower not complete, informed that patient had refused several times. requesting to see RADIO TIME SALESPERSON, paged sent to Martha, will come to bedside (middle of consult). not willing to wait, Martha notified that family had gone home. Encouraged to come for morning rounds a t 8am. Diabetes team at bedside - insulin adjustments made. Call cabello in reach. Continue to monitor. PLAN MOVING FORWARD: Ambulate, dressing changes BID, Please change drsg at 4am per Martha RADIO TIME SALESPERSON request. INDIVIDUALIZED FALL PREVENTION INTERVENTIONS: Patient-specific fall [...] levels on the lower side, 60ml of Cocke juice given after a FS of 80. [...] 0502 Interdisciplinary Rounds/Family Conf Participants disease case manager rn;dietitian/nutrition services;nursing;occupational therapy;patient;pharmacy;physical therapy;physician Plan of Care - [...] monitoring required during toileting and ADLs]: RN STATISTICAL METHODS PROFESSOR Surveillance [continuous indirect monitoring]: Barrett Monitor [...] Anticipated Discharge Disposition: home with assist Pager: [phone] CLARISSA SEGAL, PT 07/12/2017 Physical Therapy Rehabilitation [...] to sit/sit to supine Bed Mobility Goal, [place] Level supervision required Bed Mobility Goal, Additional Goal adheres to psternal precautions for transfer Goal: Gait Training Goal Stand Alone Therapy Goal Outcome: Ongoing (Interventions Implemented as Appropriate) 07/12/17 1225 Gait Training Goal Gait Training Goal, Date Established 07/12/17 Gait Training Goal, Time to Achieve 2 - 3 days Gait Training Goal, [place] Level supervision required Gait Training Goal, Assist [...] 3 days Transfer Training Goal, Activity Type eew-sx-zptbf/kjgyz-af-asx;jte-dw-clcju/arcqo-en-jrg;toilet Transfer Train Goal, [place] Level supervision required Transfer Training Goal, Additional Goal adheres to sternal precautions during transfer Consult Note - Octavia Vaughn RN - 07/12/2017 10:50 AM EST [facility] CARDIAC [facility]ABILITATION Gregory Hoang was [...] IV site, amio to other piv and GREEN CHAIN PULLER at bedside to help assess, IV removed. [...] he stood and marched in place. [place] weak, wanting to sit back down. Remained [...] Health/Prescription Coverage: Primary Insurance: MEDICARE Secondary Insurance: [employer] [place] Prescription Coverage: yes Preferred Pharmacy: [facility] [place] Other: none Primary Care Provider: Lovely Vicente MD [phone] Patient/Caregiver Goals of Treatment:live and get my breath back Potential Needs for Transition of Care: Rehab/SNF: [facility] Home Health: NA DME: TBD Dialysis: na Community Resources: available Transportation: yes Other: none Anticipated Barriers to Discharge/Special Considerations: none Plan: Likely SNF Rehab before home A member of the Care Management team will continue to monitor progress, follow for continuity of care and assist with transition of care planning. ERLIN Weiss Pager: [phone] Consult Note - Katerin Azul RN - [...] patient W/E coverage, Dr. Jeane Tatum, pager [phone] Katerin Azul APRN Endocrinology Diabetes Management Pager [phone] Plan of Care - Stephanie Godoy RN [...] MD - 07/07/2017 6:27 PM EST [facility] Operative Note Patient Name: Gregory Hoang : [id number] MR#: [id number] Case Date: 07/07/2017 Surgeon: Surgeon(s) and Role: * Yuan Webber MD - Primary * Michael Drake PA - Physician Fish Dressing Machine Feeder * Linda Flores PA - Physician Fish Dressing Machine Feeder Preoperative diagnosis: 3VD Postoperative diagnosis: CAD, severe [...] Operative Note Patient Name: Gregory Hoang : [id number] MR#: [id number] Case Date: 07/07/2017 Surgeon: Surgeon(s) and Role: * Yuan Webber MD - Primary * Michael Drake PA - Physician Fish Dressing Machine Feeder * Linda Flores PA - Physician Fish Dressing Machine Feeder Preoperative diagnosis: 3VD Postoperative diagnosis: CAD, severe LV dysfunction, severely dilated LV, post Bypass EF 30% Procedure(s) (LRB): @CABG, USING ARTERIAL GRAFT;SINGLE ARTERIAL GRAFT (WRVU 33.75) (N/A) @CABG, TWO VENOUS GRAFTS & ARTERIAL GRAFT (WRVU 7.93) (N/A) ENDOSCOPIC HARVEST VEIN(S) FOR CABG (WRVU 0.31) (Right) CABG x 3 THMOPSON->LAD, Seq SVG->OM1->D1 Anesthesia: General/Perez Findings: , diffusely [...] Cardiac: ACS (Acute Coronary Syndrome) (Adult) [facility] 07/07/17621 Cardiac: ACS (Acute Coronary Syndrome) Problems [...] major CV events such as , stroke, VT, repeat revascularization compared to PCI). In this [...] [employer] [facility] Cardiology S1 (Pager [phone]) Plan of Care - Emelia Ibarra RN [...] hospital and ruled infor non-ST segment elevation VT. This almost certainly represents the residual of [...] [facility] ??? PRO COLONOSCOPY, REMV LESN, SNARE 01/16/2014 COLONOSCOPY, POLYPECTOMY, REMOVAL LESION BY SNARE performed by Nohemi Jaimes MD at [facility] ENDOSCOPY ??? PRO THYROIDECTOMY 03/28/2013 THYROIDECTOMY, [...] with other involved physicians Yuan Webber MD [phone] Med Student Progress Note - Katty Hahn [...] major CV events such as , stroke, VT, repeat revascularization compared to PCI). In this [...] or BiPAP - s/p lasix in the photo lab specialist, was net -1.5L - s/p plavix [...] FULL - Dispo: [facility] Katty Hahn, M3 [facility] Cardiology S1 (Pager [phone]) Plan of Care - Stephanie Godoy RN - 07/06/2017 5:00 AM EST Problem: Patient Care Overview Goal: Plan of Care Review 07/06/17 1214 Coping/Psychosocial Plan Of Care Reviewed With patient;family [...] in urinal without difficulty. Lasix given in photo lab specialist, 1.4 L out at this time. [...] Zulma Dolan MD [facility] [place] [address] (Wo rk) 05/28/2022 Laboratory Appointment Lab 05/28/2022 Office Visit Cardiology Zulma Dolan MD [facility] [place] [address] Liz Poole PA [facility] [place] [address] 06/10/2022 Office Visit Dermatology Laura Scherer MD [facility] [address], [place] [address] (Wo rk) Scheduled Orders Name [...] procedure are i n the results section. JANITORIAL SUPERVISOR SCAN 07/15/2017 12:00 Res ults for [...] 07/08/2017 4:00 Results f or this ([facility] AM EST procedure are [...] 07/07/2017 5:15 Results f or this ([facility]) AM EST procedure are i [...] 07/06/2017 7:40 Results f or this ([facility]) PM EST procedure are i [...] 07/06/2017 2:10 Results f or this ([facility] PM EST procedure are [...] TYPE AND SCREEN Routine 07/06/2017 12:00 ([facility]) PM EST APTT STAT 07/06/2017 [...] 07/06/2017 8:10 Results f or this ([facility]) AM EST procedure are i [...] 07/06/2017 2:20 Results f or this ([facility]) AM EST procedure are i [...] 07/05/2017 8:20 Results f or this ([facility]) PM EST procedure are i [...] 07/05/2017 4:55 Results f or this ([facility] PM EST procedure are [...] 2017 EXAMINATION: XR CHEST PA AND LATERAL (D-ÉG ThermosetIC) CLINICAL HISTORY: CABG x 3 TECHNIQUE: PA [...] Teague APRN IMG DX ORDERABLES SCAN DOC: JANITORIAL SUPERVISOR (07/15/2017 12:00 AM EST) Narrative 07/15/2017 [...] 199 [facility] mg/dL [facility] Comment: Supplemental ranges: [...] City/State/[place] [address] POCT Glucose (07/14/2017 7:52 AM EST) athologist Signature POC Glucose 126 65 - 199 [facility] mg/dL [facility] Comment: Supplemental ranges: <140 mg/dL before meals <180 mg/dL all other times of the day Specimen Anatomical Collection Method Collection Time Receive d Time (Source) Location / / Volume Laterality Blood specimen 07/14/2017 7:52 AM 017 7:52 (specimen) EST AM EST Yuan Webber MD POINT OF CARE TEST ORDERABLE S Performing Organization Address City/[facility]/[place] [address] (ABNORMAL) Prothrombin Time (07/14/2017 [...] Wilson APRN HEMATOLOGY ORDERABLES Performing Organization Address City/[facility] Code [facility] [place] [address] Potassium (07/14/2017 4:46 AM EST) athologist Signature Potassium 4.3 3.5 - 5.0 [facility] mmol/L [facility] Comment: Please note: [...] Address City/State/ZIP Code Phon e Number [address] POCT Glucose (07/14/2017 4:34 AM EST) athologist Signature POC Glucose 115 65 - 199 [place] mg/dL [facility] Comment: Supplemental ranges: <140 mg/dL before meals <180 mg/dL all other times of the day Specimen Anatomical Collection Method Collection Time Receive d Time (Source) Location / / Volume Laterality Blood specimen 07/14/2017 4:34 AM 017 4:34 (specimen) EST AM EST Yuan Webber MD POINT OF CARE TEST ORDERABLE S Performing Organization Address City/[facility]/ZIP Code Phon e Number [address] POCT Glucose (07/13/2017 11:33 PM EST) athologist Signature POC Glucose 132 65 - 199 [place] mg/dL [facility] Comment: Supplemental ranges: <140 mg/dL before meals <180 mg/dL all other times of the day Specimen Anatomical Collection Method Collection Time Receive d Time (Source) Location / / Volume Laterality Blood specimen 07/13/2017 11:33 7 (specimen) PM EST 11:33 PM EST Yuan Webber MD POINT OF CARE TEST ORDERABLE S Performing Organization Address City/[facility]/ZIP Code Phon e Number [place] [address] POCT Glucose (07/13/2017 9:25 PM EST) athologist Signature POC Glucose 121 65 - 199 [place] mg/dL [facility] Comment: Supplemental ranges: <140 mg/dL before meals <180 mg/dL all other times of the day Specimen Anatomical Collection Method Collection Time Receive d Time (Source) Location / / Volume Laterality Blood specimen 07/13/2017 9:25 PM 017 9:25 (specimen) EST PM EST Yuan Webber MD POINT OF CARE TEST ORDERABLE S Performing Organization Address City/State/ZIP Code Phon e Number [address] POCT Glucose (07/13/2017 4:55 PM EST) athologist Signature POC Glucose 79 65 - 199 [facility] [place] mg/dL [facility] Comment: Supplemental ranges: <140 mg/dL before meals <180 mg/dL all other times of the day Specimen Anatomical Collection Method Collection Time Receive d Time (Source) Location / / Volume Laterality Blood specimen 07/13/2017 4:55 PM 017 4:55 (specimen) EST PM EST Yuan Wbeber MD POINT OF CARE TEST ORDERABLE S Performing Organization Address City/State/ZIP Code Phon e Number [address] POCT Glucose (07/13/2017 11:16 AM EST) athologist Signature POC Glucose 163 65 - 199 [facility] [place] mg/dL [facility] Comment: Supplemental ranges: <140 mg/dL before meals <180 mg/dL all other times of the day Specimen Anatomical Collection Method Collection Time Receive d Time (Source) Location / / Volume Laterality Blood specimen 07/13/2017 11:16 7 (specimen) AM EST 11:16 AM EST Yuan Webber MD POINT OF CARE TEST ORDERABLE S Performing Organization Address City/State/ZIP Code Phon e Number [address] POCT Glucose (07/13/2017 8:07 AM EST) athologist Signature POC Glucose 96 65 - 199 [place] mg/dL [facility] Comment: Supplemental ranges: <140 mg/dL before meals <180 mg/dL all other times of the day Specimen Anatomical Collection Method Collection Time Receive d Time (Source) Location / / Volume Laterality Blood specimen 07/13/2017 8:07 AM 017 8:07 (specimen) EST AM EST Yuan Webber MD POINT OF CARE TEST ORDERABLE S Performing Organization Address City/State/ZIP Code Phon e Number [address] (ABNORMAL) Prothrombin Time (07/13/2017 [...] Organization Address City/State/[place] [address] (ABNORMAL) Basic Metabolic Panel (non-fasting) (07/13/2017 4:26 AM EST) athologist Signature Glucose Lvl 95 65 - 199 [facility] mg/dL [facility] Comment: Diabetes: >=200 [...] [facility] Estimated GFR 60 >=60 [facility] Comment: The reported eGFR should be multiplied b y 1.2 for patients. The MDRD is not an appropriate measure o f renal function for patients with body mass extremes or in patients with acute kidney failure. http://CURRENT/DHnkdep http://CURRENT/DHMCnkf Specimen Anatomical Collection Method Collection Time Receive d Time (Source) Location / / Volume Laterality Blood specimen 07/13/2017 4:26 AM 017 4:46 (specimen) EST AM EST Resulting Agency Comment Spec In Lab Makayla Wilson APRN CHEMISTRY ORDERABLES Performing Organization Address City/State/ZIP Code Phon e Number [address] POCT Glucose (07/13/2017 3:52 AM EST) athologist Signature POC Glucose 93 65 - 199 [facility] mg/dL [facility] Comment: Supplemental ranges: <140 mg/dL before meals <180 mg/dL all other times of the day Specimen Anatomical Collection Method Collection Time Receive d Time (Source) Location / / Volume Laterality Blood specimen 07/13/2017 3:52 AM 017 3:52 (specimen) EST AM EST Yuan Webber MD POINT OF CARE TEST ORDERABLE S Performing Organization Address City/State/ZIP Code Phon e Number [address] POCT Glucose (07/13/2017 12:21 AM EST) athologist Signature POC Glucose 80 65 - 199 [facility] Comment: Supplemental ranges: <140 mg/dL before meals <180 mg/dL all other times of the day Specimen Anatomical Collection Method Collection Time Receive d Time (Source) Location / / Volume Laterality Blood specimen 07/13/2017 12:21 7 (specimen) AM EST 12:21 AM EST Yuan Webber MD POINT OF CARE TEST ORDERABLE S Performing Organization Address City/State/ZIP Code Phon e Number [address] POCT Glucose (07/12/2017 8:22 PM EST) athologist Signature POC Glucose 119 65 - 199 [place] mg/dL [facility] Comment: Supplemental ranges: <140 mg/dL before meals <180 mg/dL all other times of the day Specimen Anatomical Collection Method Collection Time Receive d Time (Source) Location / / Volume Laterality Blood specimen 07/12/2017 8:22 PM 017 8:22 (specimen) EST PM EST Yuan Webber MD POINT OF CARE TEST ORDERABLE S Performing Organization Address City/[facility]/ZIP Code Phon e Number [address] POCT Glucose (07/12/2017 4:02 PM EST) athologist Signature POC Glucose 114 65 - 199 [place] mg/dL [facility] Comment: Supplemental ranges: <140 mg/dL before meals <180 mg/dL all other times of the day Specimen Anatomical Collection Method Collection Time Receive d Time (Source) Location / / Volume Laterality Blood specimen 07/12/2017 4:02 PM 017 4:02 (specimen) EST PM EST Yuan Webber MD POINT OF CARE TEST ORDERABLE S Performing Organization Address City/State/ZIP Code Phon e Number [address] POCT Glucose (07/12/2017 11:28 AM EST) P athologist Signature POC Glucose 164 65 - 199 [place] mg/dL [facility] Comment: Supplemental ranges: <140 mg/dL before meals <180 mg/dL all other times of the day Specimen Anatomical Collection Method Collection Time Receive d Time (Source) Location / / Volume Laterality Blood specimen 07/12/2017 11:28 7 (specimen) AM EST 11:28 AM EST Yuan Webber MD POINT OF CARE TEST ORDERABLE S Performing Organization Address City/State/ZIP Code Phon e Number [address] POCT Glucose (07/12/2017 7:34 AM EST) athologist Signature POC Glucose 109 65 - 199 [facility] mg/dL [facility] Comment: Supplemental ranges: <140 mg/dL before meals <180 mg/dL all other times of the day Specimen Anatomical Collection Method Collection Time Receive d Time (Source) Location / / Volume Laterality Blood specimen 07/12/2017 7:34 AM 017 7:34 (specimen) EST AM EST Yuan Webber MD POINT OF CARE TEST ORDERABLE S Performing Organization Address City/State/[place] [address] (ABNORMAL) Basic Metabolic Panel (non-fasting) (07/12/2017 4:11 AM EST) athologist Signature Glucose Lvl 92 65 - 199 [facility]dL [facility] Comment: Diabetes: >=200 [...] or in patients with acute kidney failure. http://CURRENT/DHnkdep http://CURRENT/DHMCnkf Specimen Anatomical Collection Method Collection Time Receive d Time (Source) Location / / Volume Laterality Blood specimen 07/12/2017 4:11 AM 017 8:57 (specimen) EST AM EST Resulting Agency Comment Spec In Lab Makayla Rolla STACIE CHEMISTRY ORDERABLES Performing Organization Address [facility] [place] [address] (ABNORMAL) Prothrombin Time (07/12/2017 [...] [place] STACIE HEMATOLOGY ORDERABLES Performing Organization Address [facility] Phon e Number [address] Potassium (07/12/2017 4:11 AM EST) P athologist Signature Potassium 3.8 3.5 - 5.0 [facility] mmol/L [facility] Comment: Please note: [...] Wilson APRN CHEMISTRY ORDERABLES Performing Organization Address City/[facility]/ZIP [facility] Phon e Number [address] POCT Glucose (07/12/2017 4:10 AM EST) athologist Signature POC Glucose 90 65 - 199 [facility] mg/dL [facility] Comment: Supplemental ranges: <140 mg/dL before meals <180 mg/dL all other times of the day Specimen Anatomical Collection Method Collection Time Receive d Time (Source) Location / / Volume Laterality Blood specimen 07/12/2017 4:10 AM 017 4:10 (specimen) EST AM EST Yuan Webber MD POINT OF CARE TEST ORDERABLE S Performing Organization Address City/[facility]/ZIP Code Phon e Number [address] POCT Glucose (07/11/2017 11:57 PM EST) athologist Signature POC Glucose 98 65 - 199 [facility] mg/dL [facility] Comment: Supplemental ranges: <140 mg/dL before meals <180 mg/dL all other times of the day Specimen Anatomical Collection Method Collection Time Receive d Time (Source) Location / / Volume Laterality Blood specimen 07/11/2017 11:57 7 (specimen) PM EST 11:57 PM EST Yuan Webber MD POINT OF CARE TEST ORDERABLE S Performing Organization Address City/[facility]/ZIP Code Phon e Number [address] POCT Glucose (07/11/2017 8:32 PM EST) P athologist Signature POC Glucose 146 65 - 199 [place] mg/dL [facility] Comment: Supplemental ranges: [...] City/State/[place] [address] XR Chest PA & [...] e xtubated, left chest tube removed, and Mccalla-Suzi catheter removed since the study. Atelectasis at [...] e xtubated, left chest tube removed, and Mccalla-Suzi catheter removed since the study. Atelectasis at [...] (H) 65 - 199 [place] mg/dL [facility] Comment: Supplemental ranges: <140 mg/dL before meals <180 mg/dL all other times of the day Specimen Anatomical Collection Method Collection Time Receive d Time (Source) Location / / Volume Laterality Blood specimen 07/11/2017 4:05 PM 017 4:05 (specimen) EST PM EST Yuan Webber MD POINT OF CARE TEST ORDERABLE S Performing Organization Address City/[facility]/ZIP Code Phon e Number [address] POCT Glucose (07/11/2017 11:55 AM EST) athologist Signature POC Glucose 176 65 - 199 [place] mg/dL [facility] Comment: Supplemental ranges: <140 mg/dL before meals <180 mg/dL all other times of the day Specimen Anatomical Collection Method Collection Time Receive d Time (Source) Location / / Volume Laterality Blood specimen 07/11/2017 11:55 7 (specimen) AM EST 11:55 AM EST Yuan Webber MD POINT OF CARE TEST ORDERABLE S Performing Organization Address City/State/[place] [address] POCT Glucose (07/11/2017 7:53 AM EST) athologist Signature POC Glucose 189 65 - 199 [place] mg/dL [facility] Comment: Supplemental ranges: <140 mg/dL before meals <180 mg/dL all other times of the day Specimen Anatomical Collection Method Collection Time Receive d Time (Source) Location / / Volume Laterality Blood specimen 07/11/2017 7:53 AM 017 7:53 (specimen) EST AM EST Yuan Webber MD POINT OF CARE TEST ORDERABLE S Performing Organization Address City/[facility]/ZIP Code Phon e Number [address] POCT Glucose (07/11/2017 4:22 AM EST) athologist Signature POC Glucose 151 65 - 199 [place] mg/dL [facility] Comment: Supplemental ranges: <140 mg/dL before meals <180 mg/dL all other times of the day Specimen Anatomical Collection Method Collection Time Receive d Time (Source) Location / / Volume Laterality Blood specimen 07/11/2017 4:22 AM 017 4:22 (specimen) EST AM EST Yuan Webber MD POINT OF CARE TEST ORDERABLE S Performing Organization Address [facility]/[place] [address] Potassium (07/11/2017 2:20 AM EST) athologist Signature Potassium 4.5 3.5 - 5.0 [facility] mmol/L [facility] Comment: Please note: [...] Webber MD CHEMISTRY ORDERABLES Performing Organization Address City/[facility]/ZIP Code Phon e Number [address] POCT Glucose (07/11/2017 12:17 AM EST) athologist Signature POC Glucose 162 65 - 199 [place] mg/dL [facility] Comment: Supplemental ranges: <140 mg/dL before meals <180 mg/dL all other times of the day Specimen Anatomical Collection Method Collection Time Receive d Time (Source) Location / / Volume Laterality Blood specimen 07/11/2017 12:17 7 (specimen) AM EST 12:17 AM EST Yuan Webber MD POINT OF CARE TEST ORDERABLE S Performing Organization Address City/State/ZIP Code Phon e Number [address] POCT Glucose (07/10/2017 8:47 PM EST) athologist Signature POC Glucose 191 65 - 199 [place] mg/dL [facility] Comment: Supplemental ranges: <140 mg/dL before meals <180 mg/dL all other times of the day Specimen Anatomical Collection Method Collection Time Receive d Time (Source) Location / / Volume Laterality Blood specimen 07/10/2017 8:47 PM 017 8:47 (specimen) EST PM EST Yuan Webber MD POINT OF CARE TEST ORDERABLE S Performing Organization Address City/State/[place] [address] POCT Glucose (07/10/2017 4:06 PM EST) athologist Signature POC Glucose 131 65 - 199 [place] mg/dL [facility] Comment: Supplemental ranges: <140 mg/dL before meals <180 mg/dL all other times of the day Specimen Anatomical Collection Method Collection Time Receive d Time (Source) Location / / Volume Laterality Blood specimen 07/10/2017 4:06 PM 017 4:06 (specimen) EST PM EST Yuan Webber MD POINT OF CARE TEST ORDERABLE S Performing Organization Address City/State/ZIP Code Phon e Number [address] POCT Glucose (07/10/2017 3:08 PM EST) athologist Signature POC Glucose 151 65 - 199 [facility] mg/dL [facility] Comment: Supplemental ranges: <140 mg/dL before meals <180 mg/dL all other times of the day Specimen Anatomical Collection Method Collection Time Receive d Time (Source) Location / / Volume Laterality Blood specimen 07/10/2017 3:08 PM 017 3:08 (specimen) EST PM EST Yuan Webber MD POINT OF CARE TEST ORDERABLE S Performing Organization Address City/State/ZIP Code Phon e Number [address] POCT Glucose (07/10/2017 2:25 PM EST) athologist Signature POC Glucose 146 65 - 199 [place] mg/dL [facility] Comment: Supplemental ranges: <140 mg/dL before meals <180 mg/dL all other times of the day Specimen Anatomical Collection Method Collection Time Receive d Time (Source) Location / / Volume Laterality Blood specimen 07/10/2017 2:25 PM 017 2:25 (specimen) EST PM EST Yuan Webber MD POINT OF CARE TEST ORDERABLE S Performing Organization Address City/State/[place] [address] POCT Glucose (07/10/2017 1:23 PM EST) athologist Signature POC Glucose 166 65 - 199 [place] mg/dL [facility] Comment: Supplemental ranges: <140 mg/dL before meals <180 mg/dL all other times of the day Specimen Anatomical Collection Method Collection Time Receive d Time (Source) Location / / Volume Laterality Blood specimen 07/10/2017 1:23 PM 017 1:23 (specimen) EST PM EST Yuan Webber MD POINT OF CARE TEST ORDERABLE S Performing Organization Address City/State/[place] [address] POCT Glucose (07/10/2017 11:52 AM EST) athologist Signature POC Glucose 157 65 - 199 [facility] mg/dL [facility] Comment: Supplemental ranges: <140 mg/dL before meals <180 mg/dL all other times of the day Specimen Anatomical Collection Method Collection Time Receive d Time (Source) Location / / Volume Laterality Blood specimen 07/10/2017 11:52 7 (specimen) AM EST 11:52 AM EST Yuan Webber MD POINT OF CARE TEST ORDERABLE S Performing Organization Address City/State/ZIP Code Phon e Number [address] POCT Glucose (07/10/2017 11:01 AM EST) P athologist Signature POC Glucose 158 65 - 199 [place] mg/dL [facility] Comment: Supplemental ranges: <140 mg/dL before meals <180 mg/dL all other times of the day Specimen Anatomical Collection Method Collection Time Receive d Time (Source) Location / / Volume Laterality Blood specimen 07/10/2017 11:01 7 (specimen) AM EST 11:01 AM EST Yuan Webber MD POINT OF CARE TEST ORDERABLE S Performing Organization Address City/[facility]/ZIP Code Phon e Number [address] POCT Glucose (07/10/2017 9:54 AM EST) P athologist Signature POC Glucose 160 65 - 199 [place] mg/dL [facility] Comment: Supplemental ranges: <140 mg/dL before meals <180 mg/dL all other times of the day Specimen Anatomical Collection Method Collection Time Receive d Time (Source) Location / / Volume Laterality Blood specimen 07/10/2017 9:54 AM 017 9:54 (specimen) EST AM EST Yuan Webber MD POINT OF CARE TEST ORDERABLE S Performing Organization Address City/State/ZIP Code Phon e Number [address] POCT Glucose (07/10/2017 8:58 AM EST) P athologist Signature POC Glucose 183 65 - 199 [place] mg/dL [facility] Comment: Supplemental ranges: <140 mg/dL before meals <180 mg/dL all other times of the day Specimen Anatomical Collection Method Collection Time Receive d Time (Source) Location / / Volume Laterality Blood specimen 07/10/2017 8:58 AM 017 8:58 (specimen) EST AM EST Yuan Webber MD POINT OF CARE TEST ORDERABLE S Performing Organization Address City/State/ZIP Code Phon e Number [address] POCT Glucose (07/10/2017 8:01 AM EST) P athologist Signature POC Glucose 173 65 - 199 [place] mg/dL [facility] Comment: Supplemental ranges: <140 mg/dL before meals <180 mg/dL all other times of the day Specimen Anatomical Collection Method Collection Time Receive d Time (Source) Location / / Volume Laterality Blood specimen 07/10/2017 8:01 AM 017 8:01 (specimen) EST AM EST Yuan Webber MD POINT OF CARE TEST ORDERABLE S Performing Organization Address City/State/ZIP Code Phon e Number [address] POCT Glucose (07/10/2017 7:05 AM EST) athologist Signature POC Glucose 166 65 - 199 [place] mg/dL [facility] Comment: Supplemental ranges: <140 mg/dL before meals <180 mg/dL all other times of the day Specimen Anatomical Collection Method Collection Time Receive d Time (Source) Location / / Volume Laterality Blood specimen 07/10/2017 7:05 AM 017 7:05 (specimen) EST AM EST Yuan Webber MD POINT OF CARE TEST ORDERABLE S Performing Organization Address City/State/[place] [address] POCT Glucose (07/10/2017 6:00 AM EST) athologist Signature POC Glucose 162 65 - 199 [place] mg/dL [facility] Comment: Supplemental ranges: [...] City/State/ZIP Code Phon e Number [place] [id number] [facility] LAB[address]ORY Drive (ABNORMAL) Differential, Automated (07/10/2017 4:28 AM EST) [facility] Method Time Signature Neutrophils % 87.9 % [facility] Neutr Abs (ANC) 10.70 (H) 1.70 - [facility] 6.10 [facility] x10(3)/[facility] L LABORATORY Lymphocytes % 3.9 % [facility] Lymphocytes Abs 0.5 (L) 0.9 - 3.2 [facility] x10(3)/[facility] LABORATORY Monocytes % 7.0 % [facility] Monocyte Abs 0.8 0.3 - 0.9 [facility] x10(3)/[facility] LABORATORY Eosinophils % 0.3 % [facility] Eosinophils Abs 0.0 0.0 - 0.4 [facility] x10(3)/[facility] LABORATORY Basophils % 0.2 % [facility] Basophils Abs 0.0 0.0 - 0.1 [facility] x10(3)/[facility] LABORATORY Immature Gran % 0.70 % [facility] [...] Webber MD HEMATOLOGY ORDERABLES Performing Organization Address City/[facility]/[place] [address] (ABNORMAL) Hemogram (07/10/2017 4:28 AM EST) Analysis Performed At Patho logist Time Signature WBC 12.2 (H) 4.0 - 9.5 [facility] x10(3)/[facility] LABORATORY RBC 3.31 (L) 4.58 - [place] 5.54 [facility] x10(6)/[facility] LABORATORY Hemoglobin 9.8 (L) 13.7 - [facility] 16.5 gm/dL [facility] Hematocrit 30.0 (L) 40.5 - [facility] 48.5 % [facility] MCV 90.6 82.9 - [facility] 93.1 [facility] LABORATORY MCH 29.6 27.5 - [facility] 32.1 pg [facility] MCHC 32.7 32.0 - [facility] 35.7 gm/dL [facility] Platelets 135 (L) 145 - 357 [facility] x10(3)/[facility] LABORATORY RDWSD 50.8 (H) 36.0 - [facility] 45.0 [facility] LABORATORY RDWCV 15.4 (H) 11.4 - [facility] 13.8 % [facility] MPV 10.0 7.6 - 12.9 [facility] LABORATORY nRBC % Auto 0.0 % [facility] nRBC Abs Auto 0.000 0.000 - [facility] 0.000 [facility] x10(3)/[facility] LABORATORY Specimen Anatomical Collection Method Collection Time Receive d Time (Source) Location / / Volume Laterality Blood specimen 07/10/2017 4:28 AM 017 4:36 (specimen) EST AM EST Resulting Agency Comment Spec In Lab Yuan Webber MD HEMATOLOGY ORDERABLES Performing Organization Address City/State/ZIP Code Phon e Number [address] (ABNORMAL) Basic Metabolic Panel (non-fasting) (07/10/2017 4:28 AM EST) P athologist Signature Glucose Lvl 178 65 - 199 [facility] mg/dL [facility] Comment: Diabetes: >=200 [...] [facility] LABORATORY Estimated GFR 60 >=60 [facility] LABORATORY Comment: The reported eGFR should be multiplied b y 1.2 for patients. The MDRD is not an appropriate measure o f renal function for patients with body mass extremes or in patients with acute kidney failure. [email or web address] [email or web address]://CURRENT/DHMCnkf Specimen Anatomical Collection Method Collection Time Receive d Time (Source) Location / / Volume Laterality Blood specimen 07/10/2017 4:28 AM 017 4:36 (specimen) EST AM EST Resulting Agency Comment Spec In Lab Yuan Webber MD CHEMISTRY ORDERABLES Performing Organization Address City/State/[place] [address] POCT Glucose (07/10/2017 4:26 AM EST) P athologist Signature POC Glucose 176 65 - 199 [facility] mg/dL [facility] Comment: Supplemental ranges: <140 mg/dL before meals <180 mg/dL all other times of the day Specimen Anatomical Collection Method Collection Time Receive d Time (Source) Location / / Volume Laterality Blood specimen 07/10/2017 4:26 AM 017 4:26 (specimen) EST AM EST Yuan Webber MD POINT OF CARE TEST ORDERABLE S Performing Organization Address City/State/ZIP Code Phon e Number [address] (ABNORMAL) POCT Glucose (07/10/2017 3:06 AM EST) P athologist Signature POC Glucose 204 (H) 65 - 199 [facility] mg/dL [facility] Comment: Supplemental ranges: <140 mg/dL before meals <180 mg/dL all other times of the day Specimen Anatomical Collection Method Collection Time Receive d Time (Source) Location / / Volume Laterality Blood specimen 07/10/2017 3:06 AM 017 3:06 (specimen) EST AM EST Yuan Webber MD POINT OF CARE TEST ORDERABLE S Performing Organization Address City/[facility]/[place] [address] (ABNORMAL) POCT Glucose (07/10/2017 2:10 AM EST) P athologist Signature POC Glucose 203 (H) 65 - 199 [facility] mg/dL [facility] Comment: Supplemental ranges: <140 mg/dL before meals <180 mg/dL all other times of the day Specimen Anatomical Collection Method Collection Time Receive d Time (Source) Location / / Volume Laterality Blood specimen 07/10/2017 2:10 AM 017 2:10 (specimen) EST AM EST Yuan Webber MD POINT OF CARE TEST ORDERABLE S Performing Organization Address City/State/ZIP Code Phon e Number [address] POCT Glucose (07/10/2017 1:09 AM EST) P athologist Signature POC Glucose 196 65 - 199 [facility] mg/dL [facility] Comment: Supplemental ranges: [...] Address City/State/ZIP Code Phon e Number [address] POCT Glucose (07/10/2017 12:10 AM EST) P athologist Signature POC Glucose 173 65 - 199 [place] mg/dL [facility] Comment: Supplemental ranges: <140 mg/dL before meals <180 mg/dL all other times of the day Specimen Anatomical Collection Method Collection Time Receive d Time (Source) Location / / Volume Laterality Blood specimen 07/10/2017 12:10 7 (specimen) AM EST 12:10 AM EST Yuan Webber MD POINT OF CARE TEST ORDERABLE S Performing Organization Address City/State/[place] [address] POCT Glucose (07/09/2017 11:01 PM EST) P athologist Signature POC Glucose 140 65 - 199 [place] mg/dL [facility] Comment: Supplemental ranges: <140 mg/dL before meals <180 mg/dL all other times of the day Specimen Anatomical Collection Method Collection Time Receive d Time (Source) Location / / Volume Laterality Blood specimen 07/09/2017 11:01 7 (specimen) PM EST 11:01 PM EST Yuan Webber MD POINT OF CARE TEST ORDERABLE S Performing Organization Address City/State/[place] [address] POCT Glucose (07/09/2017 10:05 PM EST) P athologist Signature POC Glucose 144 65 - 199 [facility] mg/dL [facility] Comment: Supplemental ranges: <140 mg/dL before meals <180 mg/dL all other times of the day Specimen Anatomical Collection Method Collection Time Receive d Time (Source) Location / / Volume Laterality Blood specimen 07/09/2017 10:05 7 (specimen) PM EST 10:05 PM EST Yuan Webber MD POINT OF CARE TEST ORDERABLE S Performing Organization Address City/State/ZIP Code Phon e Number [address] POCT Glucose (07/09/2017 9:31 PM EST) athologist Signature POC Glucose 121 65 - 199 [place] mg/dL [facility] Comment: Supplemental ranges: <140 mg/dL before meals <180 mg/dL all other times of the day Specimen Anatomical Collection Method Collection Time Receive d Time (Source) Location / / Volume Laterality Blood specimen 07/09/2017 9:31 PM 017 9:31 (specimen) EST PM EST Yuan Webber MD POINT OF CARE TEST ORDERABLE S Performing Organization Address City/[facility]/ZIP Code Phon e Number [address] POCT Glucose (07/09/2017 9:03 PM EST) athologist Signature POC Glucose 98 65 - 199 [place] mg/dL [facility] Comment: Supplemental ranges: <140 mg/dL before meals <180 mg/dL all other times of the day Specimen Anatomical Collection Method Collection Time Receive d Time (Source) Location / / Volume Laterality Blood specimen 07/09/2017 9:03 PM 017 9:03 (specimen) EST PM EST Yuan Webber MD POINT OF CARE TEST ORDERABLE S Performing Organization Address City/[facility]/ZIP Code Phon e Number [address] POCT Glucose (07/09/2017 8:09 PM EST) athologist Signature POC Glucose 117 65 - 199 [place] mg/dL [facility] Comment: Supplemental ranges: <140 mg/dL before meals <180 mg/dL all other times of the day Specimen Anatomical Collection Method Collection Time Receive d Time (Source) Location / / Volume Laterality Blood specimen 07/09/2017 8:09 PM 017 8:09 (specimen) EST PM EST Yuan Webber MD POINT OF CARE TEST ORDERABLE S Performing Organization Address City/State/ZIP Code Phon e Number [address] POCT Glucose (07/09/2017 5:40 PM EST) athologist Signature POC Glucose 155 65 - 199 [place] mg/dL [facility] Comment: Supplemental ranges: <140 mg/dL before meals <180 mg/dL all other times of the day Specimen Anatomical Collection Method Collection Time Receive d Time (Source) Location / / Volume Laterality Blood specimen 07/09/2017 5:40 PM 017 5:40 (specimen) EST PM EST Yuan Webber MD POINT OF CARE TEST ORDERABLE S Performing Organization Address City/State/ZIP Code Phon e Number [address] POCT Glucose (07/09/2017 4:24 PM EST) athologist Signature POC Glucose 164 65 - 199 [place] mg/dL [facility] Comment: Supplemental ranges: <140 mg/dL before meals <180 mg/dL all other times of the day Specimen Anatomical Collection Method Collection Time Receive d Time (Source) Location / / Volume Laterality Blood specimen 07/09/2017 4:24 PM 017 4:24 (specimen) EST PM EST Yuan Webber MD POINT OF CARE TEST ORDERABLE S Performing Organization Address City/State/ZIP Code Phon e Number [address] POCT Glucose (07/09/2017 3:19 PM EST) athologist Signature POC Glucose 166 65 - 199 [facility] mg/dL [facility] Comment: Supplemental ranges: <140 mg/dL before meals <180 mg/dL all other times of the day Specimen Anatomical Collection Method Collection Time Receive d Time (Source) Location / / Volume Laterality Blood specimen 07/09/2017 3:19 PM 017 3:19 (specimen) EST PM EST Yuan Webber MD POINT OF CARE TEST ORDERABLE S Performing Organization Address City/State/[place] [address] POCT Glucose (07/09/2017 2:26 PM EST) athologist Signature POC Glucose 179 65 - 199 [place] mg/dL [facility] Comment: Supplemental ranges: <140 mg/dL before meals <180 mg/dL all other times of the day Specimen Anatomical Collection Method Collection Time Receive d Time (Source) Location / / Volume Laterality Blood specimen 07/09/2017 2:26 PM 017 2:26 (specimen) EST PM EST Yuan Webber MD POINT OF CARE TEST ORDERABLE S Performing Organization Address City/[facility]/[place] [address] (ABNORMAL) POCT Glucose (07/09/2017 1:29 PM EST) athologist Signature POC Glucose 210 (H) 65 - 199 [place] mg/dL [facility] Comment: Supplemental ranges: <140 mg/dL before meals <180 mg/dL all other times of the day Specimen Anatomical Collection Method Collection Time Receive d Time (Source) Location / / Volume Laterality Blood specimen 07/09/2017 1:29 PM 017 1:29 (specimen) EST PM EST Yuan Webber MD POINT OF CARE TEST ORDERABLE S Performing Organization Address City/[facility]/[place] [address] POCT Glucose (07/09/2017 12:20 PM EST) athologist Signature POC Glucose 172 65 - 199 [place] mg/dL [facility] Comment: Supplemental ranges: <140 mg/dL before meals <180 mg/dL all other times of the day Specimen Anatomical Collection Method Collection Time Receive d Time (Source) Location / / Volume Laterality Blood specimen 07/09/2017 12:20 7 (specimen) PM EST 12:20 PM EST Yuan Webber MD POINT OF CARE TEST ORDERABLE S Performing Organization Address City/State/ZIP Code Phon e Number [address] POCT Glucose (07/09/2017 11:24 AM EST) P athologist Signature POC Glucose 156 65 - 199 [place] mg/dL [facility] Comment: Supplemental ranges: <140 mg/dL before meals <180 mg/dL all other times of the day Specimen Anatomical Collection Method Collection Time Receive d Time (Source) Location / / Volume Laterality Blood specimen 07/09/2017 11:24 7 (specimen) AM EST 11:24 AM EST Yuan Webber MD POINT OF CARE TEST ORDERABLE S Performing Organization Address City/State/ZIP Code Phon e Number [address] POCT Glucose (07/09/2017 11:11 AM EST) P athologist Signature POC Glucose 172 65 - 199 [place] mg/dL [facility] Comment: Supplemental ranges: [...] City/State/[place] [address] [facility] [address] Drive POCT Glucose (07/09/2017 10:08 AM EST) P athologist Signature POC Glucose 176 65 - 199 [place] mg/dL [facility] Comment: Supplemental ranges: <140 mg/dL before meals <180 mg/dL all other times of the day Specimen Anatomical Collection Method Collection Time Receive d Time (Source) Location / / Volume Laterality Blood specimen 07/09/2017 10:08 7 (specimen) AM EST 10:08 AM EST Yuan Webber MD POINT OF CARE TEST ORDERABLE S Performing Organization Address City/State/ZIP Code Phon e Number [facility] [place] [address] POCT Glucose (07/09/2017 8:02 AM EST) P athologist Signature POC Glucose 178 65 - 199 [facility] mg/dL [facility] Comment: Supplemental ranges: <140 mg/dL before meals <180 mg/dL all other times of the day Specimen Anatomical Collection Method Collection Time Receive d Time (Source) Location / / Volume Laterality Blood specimen 07/09/2017 8:02 AM 017 8:02 (specimen) EST AM EST Yuan Webber MD POINT OF CARE TEST ORDERABLE S Performing Organization Address City/State/[place] [address] (ABNORMAL) BLOOD GAS 2 ARTERIAL (07/09/2017 5:37 AM EST) Analysis Performed At Patho logist Time Signature pH Art 7.36 7.35 - [facility] 7.45 [facility] pCO2 Art 38 35 - 45 [facility] LABORATORY pO2 Art 79 (L) 85 - 104 [facility] LABORATORY HCO3 Art 20.9 20.0 - [facility] 26.0 [facility] mmol/L [facility] LABORATORY BE Art -4.6 (L) -3.0 - 3.0 [facility] mmol/L [facility] Hgb Blood Gas 10.5 (L) 13.7 - [facility] 16.5 gm/dL [facility] O2HB Art 93.8 (L) 94.0 - [facility] 97.0 % [facility] COHB Art 0.3 % [facility] LABOR[facility] Comment: Nonsmokers: 0.5-1.5% COHB Smokers: Variable, but usually less than 10% Toxic: 20-30% COHB Lethal: Greater than 60% COHB METHB Art 0.6 <=1.5 % [facility] LABORATORY Na Whole Blood 141 135 [...] [facility] FIO2 Art 40 % [facility] PF Ratio Art 198 [facility] LABORATORY Specimen Anatomical Collection Method Collection Time Receive d Time (Source) Location / / Volume Laterality Blood specimen 07/09/2017 5:37 AM 017 5:37 (specimen) EST AM EST Yuan Webber MD CHEMISTRY ORDERABLES Performing Organization Address City/[facility]/[place] [address] POCT Glucose (07/09/2017 3:27 AM EST) P athologist Signature POC Glucose 192 65 - 199 [facility] mg/dL [facility] Comment: Supplemental ranges: <140 mg/dL before meals <180 mg/dL all other times of the day Specimen Anatomical Collection Method Collection Time Receive d Time (Source) Location / / Volume Laterality Blood specimen 07/09/2017 3:27 AM 017 3:27 (specimen) EST AM EST Yuan Webber MD POINT OF CARE TEST ORDERABLE S Performing Organization Address City/[facility]/[place] [address] (ABNORMAL) Basic Metabolic Panel (non-fasting) (07/09/2017 2:30 AM EST) P athologist Signature Glucose Lvl 179 65 - 199 [facility] mg/dL [facility] Comment: Diabetes: >=200 [...] or in patients with acute kidney failure. http://CURRENT/DHnkdep [email or web address]/DHMCnkf Specimen Anatomical Collection Method Collection Time Receive d Time (Source) Location / / Volume Laterality Blood specimen Venous Draw / 07/09/2017 2:30 AM 2016 2:42 (specimen) Unknown EST AM EST Resulting Agency Comment Spec In Lab Yuan Webber MD CHEMISTRY ORDERABLES Performing Organization Address City/State/[place] [address] (ABNORMAL) Potassium (07/09/2017 2:30 AM EST) P athologist Signature Potassium 5.1 (H) 3.5 - 5.0 [facility] mmol/L [facility] Comment: Please note: [...] City/State/[place] [address] (ABNORMAL) Hemogram (07/09/2017 2:30 AM EST) Analysis Performed At Patho logist Time Signature WBC 12.5 (H) 4.0 - 9.5 [facility] x10(3)/[facility] LABORATORY RBC 3.38 (L) 4.58 - [facility] 5.54 [facility] x10(6)/[facility] LABORATORY Hemoglobin 10.1 (L) 13.7 - [facility] 16.5 gm/dL [facility] Hematocrit 30.3 (L) 40.5 - [facility] 48.5 % [facility] MCV 89.6 82.9 - [facility] 93.1 [facility] LABORATORY MCH 29.9 27.5 - [place] 32.1 pg [facility] MCHC 33.3 32.0 - [facility] 35.7 gm/dL [facility] Platelets 127 (L) 145 - 357 [facility] x10(3)/[facility] LABORATORY RDWSD 49.3 (H) 36.0 - [place] 45.0 [facility] LABORATORY RDWCV 15.2 (H) 11.4 - [facility] 13.8 % [facility] MPV 9.9 7.6 - 12.9 [facility] LABORATORY nRBC % Auto 0.0 % [facility] LABORATORY nRBC Abs Auto 0.000 0.000 - [place] 0.000 [facility] x10(3)/[facility] LABORATORY Specimen Anatomical Collection Method Collection Time Receive d Time (Source) Location / / Volume Laterality Blood specimen 07/09/2017 2:30 AM 017 2:41 (specimen) EST AM EST Resulting Agency Comment Spec In Lab Yuan Webber MD HEMATOLOGY ORDERABLES Performing Organization Address City/[facility]/ZIP Code Phon e Number [address] POCT Glucose (07/09/2017 2:10 AM EST) P athologist Signature POC Glucose 169 65 - 199 [place] mg/dL [facility] Comment: Supplemental ranges: <140 mg/dL before meals <180 mg/dL all other times of the day Specimen Anatomical Collection Method Collection Time Receive d Time (Source) Location / / Volume Laterality Blood specimen 07/09/2017 2:10 AM 017 2:10 (specimen) EST AM EST Yuan Webber MD POINT OF CARE TEST ORDERABLE S Performing Organization Address City/[facility]/[place] [address] POCT Glucose (07/09/2017 1:01 AM EST) P athologist Signature POC Glucose 173 65 - 199 [place] mg/dL [facility] Comment: Supplemental ranges: <140 mg/dL before meals <180 mg/dL all other times of the day Specimen Anatomical Collection Method Collection Time Receive d Time (Source) Location / / Volume Laterality Blood specimen 07/09/2017 1:01 AM 017 1:01 (specimen) EST AM EST Yuan Webber MD POINT OF CARE TEST ORDERABLE S Performing Organization Address City/[facility]/ZIP Code Phon e Number [address] Blood culture (07/09/2017 12:40 AM EST) [facility] Time Signature Blood Culture No growth [place] at 5 days. [facility] Specimen Anatomical Collection Method Collection Time Receive d Time (Source) Location / / Volume Laterality Blood specimen STRUCTURE OF RIGHT 07/09/2017 12:40 3:58 (specimen) UPPER LIMB / AM EST AM EST Unknown Resulting Agency Comment Spec In Lab Yuan Webber MD MICROBIOLOGY - BLOOD ORDERAB LES Performing Organization Address City/State/[place] [address] Blood culture (07/09/2017 12:30 AM EST) [facility] ActualSun Method Time Signature Blood Culture No growth [place] DAVIS at 5 days. [facility] Specimen Anatomical Collection Method Collection Time Receive d Time (Source) Location / / Volume Laterality Blood specimen STRUCTURE OF LEFT 07/09/2017 12:30 1211/2016 3:59 (specimen) UPPER LIMB / AM EST AM EST Unknown Resulting Agency Comment Spec In Lab Yuan Webber MD MICROBIOLOGY - BLOOD ORDERAB LES Performing Organization Address City/[facility]/[place] [address] (ABNORMAL) Urinalysis Microscopic Exam (07/09/2017 12:05 AM EST) Analysis Performed At Patho logist Time Signature RBC UA 32 (H) 0 - 3 /HPF [facility] WBC UA 5 (H) 0 - 3 /HPF [facility] Squam Epith UA <1 <=4 /HPF [facility] Hyaline Cast 17 (H) 0 - 2 /LPF [facility] LABORATORY Gran Cast UA 1 (H) <=0 /LPF [facility] Uric Ac Bianca Rare (A) None /HPF [facility] LABORATORY Specimen (Source) Anatomical Collection Method Collection Time Re ceived Time Location / / Volume Laterality Urine specimen 07/09/2017 12:05 07/09/ 7 obtained via AM EST 12:39 AM EST indwelling urinary catheter (specimen) Resulting Agency Comment Spec In Lab Yuan Webber MD URINE ORDERABLES Performing Organization Address City/State/[place] [address] (ABNORMAL) Urinalysis with reflex Culture (07/09/2017 12:05 AM EST) [facility] ActualSun Method Time Signature Glucose UA Negative Negative [place] mg/dL [facility] Protein UA 30 (A) Negative [facility] mg/dL [facility] Bilirubin UA Negative Negative [facility] mg/dL [facility] Comment: Clinical correlation required for positi ve Urine Bilirubin results as false positive may occur with some drugs and d rug related products. If a false positive is suspected a serum total bili yeager should be considered if clinically indicated. Urobilinogen UA Normal Normal mg/dL [facility] LABOR[facility] pH UA 5.0 5.0 - 8.0 [facility] Blood UA Moderate (A) Negative mg/dL [facility]OR[facility] Ketones UA Negative Negative mg/dL [facility] Nitrite UA Negative Negative [facility] LAB[facility]ORY Leukocytes UA Negative Negative [facility] LABORATORY Appearance UA Hazy (A) Clear [facility] Spec Darby UA 1.025 1.002 - 1.030 [facility] LABORATORY Color UA Yellow Yellow [facility] Culture Reflexed No [facility]OR[facility] Specimen (Source) Anatomical Collection Method Collection Time Re ceived Time Location / / Volume Laterality Urine specimen 07/09/2017 12:05 7 obtained via AM EST 12:39 AM EST indwelling urinary catheter (specimen) Resulting Agency Comment Spec In Lab Yuan Webber MD URINE ORDERABLES Performing Organization Address City/[facility]/[place] [address] POCT Glucose (07/08/2017 11:01 PM EST) P athologist Signature POC Glucose 191 65 - 199 [facility] mg/dL [facility] Comment: Supplemental ranges: <140 mg/dL before meals <180 mg/dL all other times of the day Specimen Anatomical Collection Method Collection Time Receive d Time (Source) Location / / Volume Laterality Blood specimen 07/08/2017 11:01 7 (specimen) PM EST 11:01 PM EST Yuan Webber MD POINT OF CARE TEST ORDERABLE S Performing Organization Address City/State/ZIP Code Phon e Number [facility] [place] [address] POCT Glucose (07/08/2017 10:04 PM EST) athologist Signature POC Glucose 198 65 - 199 [facility] mg/dL [facility] Comment: Supplemental ranges: <140 mg/dL before meals <180 mg/dL all other times of the day Specimen Anatomical Collection Method Collection Time Receive d Time (Source) Location / / Volume Laterality Blood specimen 07/08/2017 10:04 7 (specimen) PM EST 10:04 PM EST Yuan Webber MD POINT OF CARE TEST ORDERABLE S Performing Organization Address City/State/ZIP Code Phon e Number [address] Prepare Albumin 5% in [...] Address City/State/ZIP Code Phon e Number [address] POCT Glucose (07/08/2017 8:28 PM EST) athologist Signature POC Glucose 195 65 - 199 [place] mg/dL [facility] Comment: Supplemental ranges: <140 mg/dL before meals <180 mg/dL all other times of the day Specimen Anatomical Collection Method Collection Time Receive d Time (Source) Location / / Volume Laterality Blood specimen 07/08/2017 8:28 PM 017 8:28 (specimen) EST PM EST Yuan Webber MD POINT OF CARE TEST ORDERABLE S Performing Organization Address City/State/[place] [address] (ABNORMAL) POCT Glucose (07/08/2017 7:13 PM EST) P athologist Signature POC Glucose 220 (H) 65 - 199 [facility] mg/dL [facility] Comment: Supplemental ranges: <140 mg/dL before meals <180 mg/dL all other times of the day Specimen Anatomical Collection Method Collection Time Receive d Time (Source) Location / / Volume Laterality Blood specimen 07/08/2017 7:13 PM 017 7:13 (specimen) EST PM EST Yuan Webber MD POINT OF CARE TEST ORDERABLE S Performing Organization Address City/State/ZIP Code Phon e Number [address] POCT Glucose (07/08/2017 5:04 PM EST) athologist Signature POC Glucose 147 65 - 199 [facility] Comment: Supplemental ranges: <140 mg/dL before meals <180 mg/dL all other times of the day Specimen Anatomical Collection Method Collection Time Receive d Time (Source) Location / / Volume Laterality Blood specimen 07/08/2017 5:04 PM 017 5:04 (specimen) EST PM EST Yuan Webber MD POINT OF CARE TEST ORDERABLE S Performing Organization Address City/State/[place] [address] (ABNORMAL) BLOOD GAS 2 ARTERIAL (07/08/2017 4:13 PM EST) Analysis Performed At Patho logist Time Signature pH Art 7.38 7.35 - [facility] 7.45 [facility] pCO2 Art 36 35 - 45 [facility] LABORATORY pO2 Art 91 85 - 104 [facility] LABORATORY HCO3 Art 20.9 20.0 - [facility] 26.0 [facility] mmol/L [facility] LABORATORY BE Art -4.2 (L) -3.0 - 3.0 [facility] mmol/L [facility] Hgb Blood Gas 11.7 (L) 13.7 - [facility] 16.5 gm/dL [facility] O2HB Art 95.1 94.0 - [facility] 97.0 % [facility] COHB Art 0.6 % [facility] Comment: Nonsmokers: 0.5-1.5% COHB Smokers: Variable, but usually less than 10% Toxic: 20-30% COHB Lethal: Greater than 60% COHB METHB Art 0.6 <=1.5 % [facility] Na Whole Blood 139 135 [...] [facility] LAB[facility]ORY FIO2 Art 40 % [facility] PF Ratio Art [address] [facility] LABORATORY Specimen Anatomical Collection Method Collection Time Receive d Time (Source) Location / / Volume Laterality Blood specimen 07/08/2017 4:13 PM 017 4:13 (specimen) EST PM EST Yuan Webber MD CHEMISTRY ORDERABLES Performing Organization Address City/State/[place] [address] POCT Glucose (07/08/2017 4:01 PM EST) P athologist Signature POC Glucose 148 65 - 199 [facility] mg/dL [facility] Comment: Supplemental ranges: <140 mg/dL before meals <180 mg/dL all other times of the day Specimen Anatomical Collection Method Collection Time Receive d Time (Source) Location / / Volume Laterality Blood specimen 07/08/2017 4:01 PM 017 4:01 (specimen) EST PM EST Yuan Webber MD POINT OF CARE TEST ORDERABLE S Performing Organization Address City/State/ZIP Code Phon e Number [address] POCT Glucose (07/08/2017 3:21 PM EST) athologist Signature POC Glucose 118 65 - 199 [facility] mg/dL [facility] Comment: Supplemental ranges: <140 mg/dL before meals <180 mg/dL all other times of the day Specimen Anatomical Collection Method Collection Time Receive d Time (Source) Location / / Volume Laterality Blood specimen 07/08/2017 3:21 PM 017 3:21 (specimen) EST PM EST Yuan Webber MD POINT OF CARE TEST ORDERABLE S Performing Organization Address City/State/ZIP Code Phon e Number [address] POCT Glucose (07/08/2017 2:01 PM EST) athologist Signature POC Glucose 129 65 - 199 [facility] mg/dL [facility] Comment: Supplemental ranges: <140 mg/dL before meals <180 mg/dL all other times of the day Specimen Anatomical Collection Method Collection Time Receive d Time (Source) Location / / Volume Laterality Blood specimen 07/08/2017 2:01 PM 017 2:01 (specimen) EST PM EST Yuan Webber MD POINT OF CARE TEST ORDERABLE S Performing Organization Address City/State/[place] [address] POCT Glucose (07/08/2017 11:53 AM EST) athologist Signature POC Glucose 156 65 - 199 [facility] mg/dL [facility] Comment: Supplemental ranges: <140 mg/dL before meals <180 mg/dL all other times of the day Specimen Anatomical Collection Method Collection Time Receive d Time (Source) Location / / Volume Laterality Blood specimen 07/08/2017 11:53 7 (specimen) AM EST 11:53 AM EST Yuan Webber MD POINT OF CARE TEST ORDERABLE S Performing Organization Address City/State/ZIP Code Phon e Number [address] POCT Glucose (07/08/2017 11:04 AM EST) athologist Signature POC Glucose 181 65 - 199 [facility]dL [facility] Comment: Supplemental ranges: <140 mg/dL before meals <180 mg/dL all other times of the day Specimen Anatomical Collection Method Collection Time Receive d Time (Source) Location / / Volume Laterality Blood specimen 07/08/2017 11:04 7 (specimen) AM EST 11:04 AM EST Yuan Webber MD POINT OF CARE TEST ORDERABLE S Performing Organization Address City/[facility]/[place] [address] (ABNORMAL) POCT Glucose (07/08/2017 9:24 AM EST) athologist Signature POC Glucose 203 (H) 65 - 199 [facility] mg/dL [facility] Comment: Supplemental ranges: <140 mg/dL before meals <180 mg/dL all other times of the day Specimen Anatomical Collection Method Collection Time Receive d Time (Source) Location / / Volume Laterality Blood specimen 07/08/2017 9:24 AM 017 9:24 (specimen) EST AM EST Yuan Webber MD POINT OF CARE TEST ORDERABLE S Performing Organization Address City/State/[place] [address] APTT (07/08/2017 8:40 AM EST) athologist Signature PTT 33 25 - 35 sec [facility] Comment: The recommended therapeutic range for fu ll dose, unfractionated heparin at [facility] is 80 ? 114 seconds. [...] Webber MD HEMATOLOGY ORDERABLES Performing Organization Address City/[facility]/[place] [address] (ABNORMAL) Prothrombin Time (07/08/2017 [...] Webber MD HEMATOLOGY ORDERABLES Performing Organization Address City/[facility]/[place] [address] (ABNORMAL) POCT Glucose (07/08/2017 7:38 AM EST) P athologist Signature POC Glucose 232 (H) 65 - 199 [facility] mg/dL [facility] Comment: Supplemental ranges: <140 mg/dL before meals <180 mg/dL all other times of the day Specimen Anatomical Collection Method Collection Time Receive d Time (Source) Location / / Volume Laterality Blood specimen 07/08/2017 7:38 AM 017 7:38 (specimen) EST AM EST Yuan Webber MD POINT OF CARE TEST ORDERABLE S Performing Organization Address City/[facility]/[place] [address] (ABNORMAL) POCT Glucose (07/08/2017 7:07 AM EST) athologist Signature POC Glucose 234 (H) 65 - 199 [facility] mg/dL [facility] Comment: Supplemental ranges: <140 mg/dL before meals <180 mg/dL all other times of the day Specimen Anatomical Collection Method Collection Time Receive d Time (Source) Location / / Volume Laterality Blood specimen 07/08/2017 7:07 AM 017 7:07 (specimen) EST AM EST Yuan Webber MD POINT OF CARE TEST ORDERABLE S Performing Organization Address City/State/[place] [address] (ABNORMAL) POCT Glucose (07/08/2017 6:04 AM EST) athologist Signature POC Glucose 225 (H) 65 - 199 [facility] mg/dL [facility] Comment: Supplemental ranges: <140 mg/dL before meals <180 mg/dL all other times of the day Specimen Anatomical Collection Method Collection Time Receive d Time (Source) Location / / Volume Laterality Blood specimen 07/08/2017 6:04 AM 017 6:04 (specimen) EST AM EST Yuan Webber MD POINT OF CARE TEST ORDERABLE S Performing Organization Address City/State/[place] [address] (ABNORMAL) POCT Glucose (07/08/2017 5:31 AM EST) athologist Signature POC Glucose 216 (H) 65 - 199 [facility] mg/dL [facility] Comment: Supplemental ranges: <140 mg/dL before meals <180 mg/dL all other times of the day Specimen Anatomical Collection Method Collection Time Receive d Time (Source) Location / / Volume Laterality Blood specimen 07/08/2017 5:31 AM 017 5:31 (specimen) EST AM EST Yaun Webber MD POINT OF CARE TEST ORDERABLE S Performing Organization Address City/State/[place] [address] (ABNORMAL) POCT Glucose (07/08/2017 4:52 AM EST) P athologist Signature POC Glucose 257 (H) 65 - 199 [facility] mg/dL [facility] Comment: Supplemental ranges: [...] City/State/[place] [address] (ABNORMAL) BLOOD GAS 2 ARTERIAL (07/08/2017 4:04 AM EST) Analysis Performed At Patho logist Time Signature pH Art 7.30 (L) 7.35 - [facility] 7.45 [facility] pCO2 Art 41 35 - 45 [facility] LABORATORY pO2 Art 83 (L) 85 - 104 [facility] LABORATORY HCO3 Art 19.6 (L) 20.0 - [facility] 26.0 [facility] mmol/[facility] LABORATORY BE Art -6.8 (L) -3.0 - 3.0 [facility] mmol/L [facility] Hgb Blood Gas 12.2 (L) 13.7 - [facility] 16.5 gm/dL [facility] O2HB Art 93.5 (L) 94.0 - [facility] 97.0 % [facility] COHB Art 0.4 % [facility] Comment: Nonsmokers: 0.5-1.5% COHB Smokers: Variable, but usually less than 10% Toxic: 20-30% COHB Lethal: Greater than 60% COHB METHB Art 0.8 <=1.5 % [facility] Na [...] [facility] Comment: Noted by instrument and control service person. FIO2 Art 40 % [facility] PF Ratio Art 208 [facility] Specimen Anatomical Collection Method Collection Time Receive d Time (Source) Location / / Volume Laterality Blood specimen 07/08/2017 4:04 AM 017 4:04 (specimen) EST AM EST Daphne Shahid MD CHEMISTRY ORDERABLES Performing Organization Address City/[facility]/ZIP Code Phon e Number [address] Scan, Peripheral Blood (07/08/2017 [...] Address City/State/ZIP Code Phon e Number [address] (ABNORMAL) Differential, Automated (07/08/2017 4:00 AM EST) Patholo gist Method Time Signature Neutrophils % 85.4 % [facility] Neutr Abs (ANC) 16.07 (H) 1.70 - [facility] 6.10 [facility] x10(3)/[facility] L LABORATORY Lymphocytes % 3.5 % [facility] Lymphocytes Abs 0.6 (L) 0.9 - 3.2 [facility] x10(3)/[facility] LABORATORY Monocytes % 10.4 % [facility] Monocyte Abs 2.0 (H) 0.3 - 0.9 [facility] x10(3)/[facility] LABORATORY Eosinophils % 0.0 % [facility] Eosinophils Abs 0.0 0.0 - 0.4 [facility] x10(3)/[facility] LABORATORY Basophils % 0.1 % [facility] Basophils Abs 0.0 0.0 - 0.1 [facility] x10(3)/[facility] LABORATORY Immature Gran % 0.60 % [facility] [...] City/State/[place] [address] (ABNORMAL) Hemogram (07/08/2017 4:00 AM EST) Analysis Performed At Patho logist Time Signature WBC 18.8 (H) 4.0 - 9.5 [facility] x10(3)/[facility] LABORATORY RBC 4.00 (L) 4.58 - [facility] 5.54 [facility] x10(6)/[facility] LABORATORY Hemoglobin 11.9 (L) 13.7 - [facility] 16.5 gm/dL [facility] Hematocrit 35.9 (L) 40.5 - [facility] 48.5 % [facility] MCV 89.8 82.9 - [facility] 93.1 [facility] LABORATORY MCH 29.8 27.5 - [facility] 32.1 pg [facility] MCHC 33.1 32.0 - [facility] 35.7 gm/dL [facility] Platelets 232 145 - 357 [facility] x10(3)/[facility] LABORATORY RDWSD 47.6 (H) 36.0 - [facility] 45.0 [facility] LABORATORY RDWCV 14.5 (H) 11.4 - [facility] 13.8 % [facility] MPV 9.5 7.6 - 12.9 [facility] LABORATORY nRBC % Auto 0.0 % [facility] nRBC Abs Auto 0.000 0.000 - [facility] 0.000 [facility] x10(3)/[facility] LABORATORY Specimen Anatomical Collection Method Collection Time Receive d Time (Source) Location / / Volume Laterality Blood specimen 07/08/2017 4:00 AM 017 4:09 (specimen) EST AM EST Resulting Agency Comment Spec In Lab Yuan Webber MD HEMATOLOGY ORDERABLES Performing Organization Address City/State/ZIP Code Phon e Number [place] [id number] (ABNORMAL) Electrolytes panel (07/08/2017 4:00 AM EST) P athologist Signature Sodium 139 135 - 145 [facility] mmol/L [facility] Potassium 4.7 3.5 - 5.0 [facility] mmol/L [facility] Comment: result rechecked-JLK Please note: ??Patients with WBC >100,00 0 may have falsely elevated Potassium levels. ??For accurate Potassium quantif ication in these patients send serum separator tube (gold top) for subsequent determinations. ??Contact the Clinical Chemistry Laboratory if there are any qu estions. Chloride 104 98 - 107 mmol/L [facility] CO2 21 (L) 22 - 31 mmol/L [facility] Anion Gap 14 5 - 15 mmol/L [facility] RY[facility] LABORATORY Specimen Anatomical Collection Method Collection Time Receive d Time (Source) Location / / Volume Laterality Blood specimen 07/08/2017 4:00 AM 017 4:10 (specimen) EST AM EST Resulting Agency Comment Spec In Lab Yuan Webber MD CHEMISTRY ORDERABLES Performing Organization Address City/State/[place] [address] (ABNORMAL) Cardiac Enzymes (LEB/CGP) (07/08/2017 4:00 AM EST) P athologist Signature Troponin-T 1.88 (H) 0.00 - [facility] 0.00 ng/mL [facility] Comment: The 99th percentile for Troponin T is le ss than 0.01 ng/mL, any detectable cTnT concentration using this assay should be considered elevated. According to the third universal definit ion of myocardial infarction the following criteria with a clinical prese ntation consistent with acute myocardial ischemia meets the diagnosis for a myocardial infarction (VT). Detection of a rise and/or fall of [...] Definition of Myocardial Infarction. Journal of the [employer] 2012;60:1581-98 CK, Total 413 [...] Address City/State/ZIP Code Phon e Number [address] (ABNORMAL) Glucose, fasting (07/08/2017 4:00 AM EST) P athologist Signature Glucose 287 (H) 65 - 99 [facility] Fasting mg/dL [facility] Comment: ?Fasting* [...] of Diabetes Mellitus, Position Statement from the [employer]. ??Diabete s Care, Volume 33, Supplement 1, Jul 2009 Specimen Anatomical Collection Method Collection Time Receive d Time (Source) Location / / Volume Laterality Blood specimen 07/08/2017 4:00 AM 017 4:09 (specimen) EST AM EST Resulting Agency Comment Spec In Lab Yuan Webber MD CHEMISTRY ORDERABLES Performing Organization Address City/[facility]/[place] [address] (ABNORMAL) Creatinine (07/08/2017 4:00 AM EST) Analysis Performed At Patho logist Time Signature Creatinine 1.55 (H) 0.80 - [facility] 1.50 mg/dL [facility] Estimated GFR 44 (L) >=60 [facility] Comment: The reported eGFR should be multiplied b y 1.2 for patients. The MDRD is not an appropriate measure o f renal function for patients with body mass extremes or in patients with acute kidney failure. [email or web address] [email or web address] Specimen Anatomical Collection Method Collection Time Receive d Time (Source) Location / / Volume Laterality Blood specimen 07/08/2017 4:00 AM 017 4:09 (specimen) EST AM EST Resulting Agency Comment Spec In Lab Yuan Webber MD CHEMISTRY ORDERABLES Performing Organization Address City/[facility]/ZIP Code Phon e Number [address] BUN (07/08/2017 4:00 AM EST) P athologist Signature BUN 16 10 - 20 [facility] mg/dL [facility] Specimen Anatomical Collection Method Collection Time Receive d Time (Source) Location / / Volume Laterality Blood specimen 07/08/2017 4:00 AM 017 4:09 (specimen) EST AM EST Resulting Agency Comment Spec In Lab Yuan Webber MD CHEMISTRY ORDERABLES Performing Organization Address City/[facility]/[place] [address] (ABNORMAL) POCT Glucose (07/08/2017 3:00 AM EST) athologist Signature POC Glucose 273 (H) 65 - 199 [facility] mg/dL [facility] Comment: Supplemental ranges: <140 mg/dL before meals <180 mg/dL all other times of the day Specimen Anatomical Collection Method Collection Time Receive d Time (Source) Location / / Volume Laterality Blood specimen 07/08/2017 3:00 AM 017 3:00 (specimen) EST AM EST Daphne Shahid MD POINT OF CARE TEST ORDERABLE S Performing Organization Address City/[facility]/ZIP Code Phon e Number [address] (ABNORMAL) POCT Glucose (07/08/2017 1:57 AM EST) P athologist Signature POC Glucose 288 (H) 65 - 199 [facility] mg/dL [facility] Comment: Supplemental ranges: <140 mg/dL before meals <180 mg/dL all other times of the day Specimen Anatomical Collection Method Collection Time Receive d Time (Source) Location / / Volume Laterality Blood specimen 07/08/2017 1:57 AM 017 1:57 (specimen) EST AM EST Daphne Shahid MD POINT OF CARE TEST ORDERABLE S Performing Organization Address City/[facility]/[place] [address] (ABNORMAL) POCT Glucose (07/08/2017 1:01 AM EST) athologist Signature POC Glucose 315 (H) 65 - 199 [facility] mg/dL [facility] Comment: Supplemental ranges: <140 mg/dL before meals <180 mg/dL all other times of the day Specimen Anatomical Collection Method Collection Time Receive d Time (Source) Location / / Volume Laterality Blood specimen 07/08/2017 1:01 AM 017 1:01 (specimen) EST AM EST Daphne Shahid MD POINT OF CARE TEST ORDERABLE S Performing Organization Address City/[facility]/[place] [address] (ABNORMAL) BLOOD GAS 2 ARTERIAL (07/08/2017 12:09 AM EST) athologist Signature pH Art 7.26 7.35 - [facility] (Critical) 7.45 [facility] Comment: Noted by instrument and control service person. pCO2 Art 41 35 - [address] [facility] pO2 Art 96 85 - [...] [facility] COHB Art 0.2 % [facility] Comment: Nonsmokers: 0.5-1.5% COHB Smokers: Variable, but usually less than 10% Toxic: 20-30% COHB Lethal: Greater than 60% COHB METHB Art 0.6 <=1.5 % [facility] Na Whole Blood 141 135 [...] [facility] Comment: Noted by instrument and control service person. FIO2 Art 40 % [facility] PF Ratio Art 240 [facility] Specimen Anatomical Collection Method Collection Time Receive d Time (Source) Location / / Volume Laterality Blood specimen Arterial Draw / 07/08/2017 12:09 2016 5:31 (specimen) Unknown AM EST AM EST Resulting Agency Comment Spec In Lab Samy Maldonado MD CHEMISTRY ORDERABLES Performing Organization Address City/State/[place] [address] (ABNORMAL) POCT Glucose (07/07/2017 10:56 PM EST) P athologist Signature POC Glucose 292 (H) 65 - 199 [facility] mg/dL [facility] Comment: Supplemental ranges: [...] City/State/[place] [address] (ABNORMAL) BLOOD GAS 2 ARTERIAL (07/07/2017 10:04 PM EST) athologist Signature pH Art 7.22 7.35 - [facility] (Critical) 7.45 [facility] Comment: Noted by instrument and control service person. pCO2 Art 42 35 - [address] [facility] pO2 Art 94 85 - [...] [facility] COHB Art 0.7 % [facility] Comment: Nonsmokers: 0.5-1.5% COHB Smokers: Variable, but usually less than 10% Toxic: 20-30% COHB Lethal: Greater than 60% COHB METHB Art 0.7 <=1.5 % [facility] Na Whole Blood 140 135 [...] [facility] Comment: Noted by instrument and control service person. FIO2 Art 40 % [facility] PF Ratio Art 235 [facility] Specimen Anatomical Collection Method Collection Time Receive d Time (Source) Location / / Volume Laterality Blood specimen 07/07/2017 10:04 7 (specimen) PM EST 10:04 PM EST Daphne Shahid MD CHEMISTRY ORDERABLES Performing Organization Address City/[facility]/ZIP Code Phon e Number [address] (ABNORMAL) Hemoglobin (07/07/2017 10:00 PM EST) P athologist Signature Hemoglobin 12.8 (L) 13.7 - [facility] 16.5 gm/dL [facility] Specimen Anatomical Collection Method Collection Time Receive d Time (Source) Location / / Volume Laterality Blood specimen 07/07/2017 10:00 7 (specimen) PM EST 10:13 PM EST Resulting Agency Comment Spec In Lab Yuan Webber MD HEMATOLOGY ORDERABLES Performing Organization Address City/[facility]/[place] [address] (ABNORMAL) Potassium (07/07/2017 10:00 PM EST) P athologist Signature Potassium 3.4 (L) 3.5 - 5.0 [facility] mmol/L [facility] Comment: Please note: [...] Organization Address City/State/[place] [address] (ABNORMAL) POCT Glucose (07/07/2017 8:49 PM EST) P athologist Signature POC Glucose 241 (H) 65 - 199 [facility] mg/dL [facility] Comment: Supplemental ranges: <140 mg/dL before meals <180 mg/dL all other times of the day Specimen Anatomical Collection Method Collection Time Receive d Time (Source) Location / / Volume Laterality Blood specimen 07/07/2017 8:49 PM 017 8:49 (specimen) EST PM EST Daphne Shahid MD POINT OF CARE TEST ORDERABLE S Performing Organization Address City/[facility]/[place] [address] Prepare Albumin 5% in [...] [facility] ORDERABLES Performing Organization Address City/[facility]/[place] [address] EKG 12 Lead (07/07/2017 7:17 PM EST) Component Value Ref Range Test Analysis Performed Pathologis t Method Time At Signature Ventricular rate 75 BPM MUSE SYSTEM Atrial Rate 75 BPM MUSE SYSTEM P-R Interval 168 ms MUSE SYSTEM QRS Duration 104 ms MUSE SYSTEM Q-T Interval 462 ms MUSE SYSTEM QTC Calculated 515 ms MUSE SYSTEM (Bezet) Calculated P Lamona 52 degrees MUSE SYSTEM Calculated R Lamona -40 degrees MUSE SYSTEM Calculated T Lamona 39 degrees MUSE SYSTEM INTERPRETATION Normal sinus [...] athologist Signature pH Art 7.21 7.35 - [facility] (Critical) 7.45 [facility] Comment: Noted by instrument and control service person. pCO2 Art 50 (H) 35 - [address] [facility] pO2 Art 238 (H) 85 [...] [facility] COHB Art 0.5 % [facility] Comment: Nonsmokers: 0.5-1.5% COHB Smokers: Variable, but usually less than 10% Toxic: 20-30% COHB Lethal: Greater than 60% COHB METHB Art 0.7 <=1.5 % [facility] Na Whole Blood 140 135 - 145 mmol/L [facility] K Whole Blood 3.0 (Critical) 3.5 - 5.0 mmol/L [facility] Comment: Noted by instrument and control service person. Please note: Patients with WBC >100,000 [...] [facility] Comment: Noted by instrument and control service person. FIO2 Art 100 % [facility] PF Ratio Art 238 [facility] Specimen Anatomical Collection Method Collection Time Receive d Time (Source) Location / / Volume Laterality Blood specimen 07/07/2017 6:57 PM 017 6:57 (specimen) EST PM EST Daphne Shahid MD CHEMISTRY ORDERABLES Performing Organization Address City/State/[place] [address] (ABNORMAL) BLOOD GAS 2 ARTERIAL (07/07/2017 5:31 PM EST) P athologist Signature pH Art 7.29 7.35 - [facility] (Critical) 7.45 [facility] Comment: Noted by instrument and control service person. pCO2 Art 48 (H) 35 - [address] [facility] pO2 Art 137 (H) 85 [...] [facility] COHB Art 0.3 % [facility] Comment: Nonsmokers: 0.5-1.5% COHB Smokers: Variable, but usually less than 10% Toxic: 20-30% COHB Lethal: Greater than 60% COHB METHB Art 0.3 <=1.5 % [facility] Na Whole Blood 132 (L) [...] Shahid MD CHEMISTRY ORDERABLES Performing Organization Address City/[facility]/ZIP Code Phon e Number [address] Fibrinogen (07/07/2017 5:30 PM EST) P athologist Signature Fibrinogen 224 180 - 510 [facility] mg/dL [facility] Comment: Called by: JEET, Read [...] Perez MD HEMATOLOGY ORDERABLES Performing Organization Address City/[facility]/ZIP [facility] Phon e Number [address] APTT (07/07/2017 5:30 PM EST) P athologist Signature PTT 30 25 - 35 sec [facility] Comment: The recommended therapeutic range for fu ll dose, unfractionated heparin at [facility] is 80 ? 114 seconds. [...] Perez MD HEMATOLOGY ORDERABLES Performing Organization Address City/[facility] [place] [address] (ABNORMAL) Prothrombin Time (07/07/2017 [...] Perez MD HEMATOLOGY ORDERABLES Performing Organization Address City/[facility] [place] [address] (ABNORMAL) Hemogram (07/07/2017 5:30 PM EST) P athologist Signature WBC 19.6 (H) 4.0 - 9.5 [facility] x10(3)/[facility] LABORATORY RBC 3.08 (L) 4.58 - [facility] 5.54 [facility] x10(6)/[facility] LABORATORY Hemoglobin 9.2 (L) 13.7 - [facility] 16.5 gm/dL [facility] Hematocrit 28.0 (L) 40.5 - [facility] 48.5 % [facility] Comment: This result has been called to MONICA MORAN by DONALD GROSSMAN on 07 07 2017 at 1759, and has been read back. MCV 90.9 82.9 - 93.1 [facility] LABORATORY MCH 29.9 27.5 - 32.1 pg [facility] MCHC 32.9 32.0 - 35.7 gm/dL [facility] Platelets 155 145 - 357 x10(3)/[facility] LABORATORY RDWSD 46.5 (H) 36.0 - 45.0 [facility] LABORATORY RDWCV 14.1 (H) 11.4 - 13.8 % [facility] MPV 9.5 7.6 - 12.9 [facility] LABORATORY nRBC % Auto 0.0 % [facility] nRBC Abs Auto 0.000 0.000 - 0.000 x10(3)/[facility] LABORATORY Specimen Anatomical Collection Method Collection Time Receive d Time (Source) Location / / Volume Laterality Blood specimen 07/07/2017 5:30 PM 017 5:34 (specimen) EST PM EST Resulting Agency Comment Spec In Lab Yifan Perez MD HEMATOLOGY ORDERABLES Performing Organization Address City/State/[place] [address] Prepare Platelets, Apheresis (07/07/2017 5:00 PM EST) P athologist Signature Dispensed? Yes [facility] Specimen Anatomical Collection Method Collection Time Receive d Time (Source) Location / / Volume Laterality Blood specimen 07/07/2017 5:00 PM 017 4:58 (specimen) EST PM EST Daphne Shahid MD BLOOD BANK ORDERABLES Performing Organization Address City/State/[place] [address] Platelet count (07/07/2017 4:55 PM EST) P athologist Signature Platelets 177 145 - 357 KATALINA DAVIS x10(3)/[facility] LABORATORY Plat Immature 1.5 0.0 - 7.4 K[facility]AL[facility] DAVIS % % [facility] Comment: Limitation of the Immature Platelet Frac tion (IPF)-May be less reliable when the platelet count is less than 97s352/u L due to statistical imprecision. The IPF [...] in a decreased state of production. References: [employer] The Clinical Value of the Immature Platelet Fraction (IPF) in Cell Recovery Document Number 10-1143 12/2010 [employer] The Role of the Imm ature [...] City/State/[place] [address] (ABNORMAL) Hemoglobin and Hematocrit, blood (07/07/2017 4:55 PM EST) P athologist Signature Hemoglobin 9.1 (L) 13.7 - 16.5 K[facility] DAVIS gm/dL [facility] Comment: This result has been [...] City/State/[place] [address] (ABNORMAL) BLOOD GAS 2 ARTERIAL (07/07/2017 4:38 PM EST) Analysis Performed At Patho logist Time Signature pH Art 7.37 7.35 - [facility] 7.45 [facility] pCO2 Art 44 35 - 45 [facility] mmHg [facility] pO2 Art 322 (H) 85 - 104 [facility] LABORATORY HCO3 Art 24.9 20.0 - [facility] 26.0 [facility] mmol/L [facility] BE Art -0.4 -3.0 - 3.0 [facility] mmol/L [facility] Hgb Blood Gas 10.1 (L) 13.7 - [facility] 16.5 gm/dL [facility] O2HB Art 98.7 (H) 94.0 - [facility] 97.0 % [facility] COHB Art 0.1 % [facility] Comment: Nonsmokers: 0.5-1.5% COHB Smokers: Variable, but usually less than 10% Toxic: 20-30% COHB Lethal: Greater than 60% COHB METHB Art 0.3 <=1.5 % [facility] Na Whole Blood 130 (L) [...] mmol/L [facility] Comment: Noted by instrument and control service person. Note: ??Total bilirubin higher than 20 [...] City/State/[place] [address] (ABNORMAL) BLOOD GAS 2 VENOUS (07/07/2017 4:06 PM EST) Analysis Performed At Patho logist Time Signature pH Cody 7.31 (L) 7.32 - [facility] 7.42 [facility] pCO2 Cody 47 41 - 51 [facility] LABORATORY pO2 Cody 53 (H) 25 - 40 [facility] LABORATORY HCO3 Cody 22.7 mmol/L [facility] BE Cody -3.7 mmol/L [facility] Hgb Blood Gas 10.2 (L) 13.7 - [facility] 16.5 gm/dL [facility] O2HB Cody 81.0 % [facility] COHB Cody 1.0 % [facility] Comment: Nonsmokers: 0.5-1.5% COHB Smokers: Variable, but usually less than 10% Toxic: 20-30% COHB Lethal: Greater than 60% COHB METHB Cody 0.3 <=1.5 % [facility] Na Whole Blood 132 (L) [...] mmol/L [facility] Comment: Noted by instrument and control service person. Note: ??Total bilirubin higher than 20 m g/dL may lead to falsely low ionized calcium. CL Whole Blood 100 98 - 107 mmol/L [facility] Gluc Whole Bld 231 (H) 65 - 199 mg/dL [facility] Comment: Diabetes: >=200 mg/dL plus symp toms Lactate WB 1.1 0.5 - 2.2 mmol/L [facility] BGas Source Venous [facility] Specimen Anatomical Collection Method Collection Time Receive d Time (Source) Location / / Volume Laterality Blood specimen 07/07/2017 4:06 PM 017 4:06 (specimen) EST PM EST Daphne Shahid MD CHEMISTRY ORDERABLES Performing Organization Address City/State/[place] [address] (ABNORMAL) BLOOD GAS 2 ARTERIAL (07/07/2017 4:05 PM EST) Analysis Performed At Patho logist Time Signature pH Art 7.36 7.35 - [facility] 7.45 [facility] pCO2 Art 40 35 - 45 [facility] mmHg [facility] pO2 Art 282 (H) 85 - 104 [facility] LABORATORY HCO3 Art 22.1 20.0 - [facility] 26.0 [facility] mmol/L [facility] BE Art -3.4 (L) -3.0 - 3.0 [facility] mmol/L [facility] Hgb Blood Gas 10.2 (L) 13.7 - [facility] 16.5 gm/dL [facility] O2HB Art 98.4 (H) 94.0 - [facility] 97.0 % [facility] COHB Art 0.3 % [facility] Comment: Nonsmokers: 0.5-1.5% COHB Smokers: Variable, but usually less than 10% Toxic: 20-30% COHB Lethal: Greater than 60% COHB METHB Art 0.3 <=1.5 % [facility] Na Whole Blood 131 (L) [...] mmol/L [facility] Comment: Noted by instrument and control service person. Note: ??Total bilirubin higher than 20 [...] City/State/[place] [address] (ABNORMAL) BLOOD GAS 2 ARTERIAL (07/07/2017 2:29 PM EST) Analysis Performed At Patho logist Time Signature pH Art 7.43 7.35 - [facility] 7.45 [facility] pCO2 Art 36 35 - 45 [facility] LABORATORY pO2 Art 221 (H) 85 - 104 [facility] LABORATORY HCO3 Art 23.2 20.0 - [facility] 26.0 [facility] mmol/[facility]ATORY BE Art -1.2 -3.0 - 3.0 [facility] mmol/L [facility] Hgb Blood Gas 13.9 13.7 - [facility] 16.5 gm/dL [facility] O2HB Art 97.8 (H) 94.0 - [facility] 97.0 % [facility] COHB Art 1.1 % [facility] Comment: Nonsmokers: 0.5-1.5% COHB Smokers: Variable, but usually less than 10% Toxic: 20-30% COHB Lethal: Greater than 60% COHB METHB Art 0.3 <=1.5 % [facility] Na Whole Blood 139 135 [...] City/State/[place] [address] Prepare Coag Factors (Non-Hemophilia) (07/07/2017 1:25 PM EST) P athologist Signature Dispensed? Yes [facility] Specimen Anatomical Collection Method Collection Time Receive d Time (Source) Location / / Volume Laterality Blood specimen 07/07/2017 1:25 PM 017 1:21 (specimen) EST PM EST Daphne Shahid MD BLOOD BANK ORDERABLES Performing Organization Address City/State/ZIP Code Phon e Number [address] Prepare RBC (07/07/2017 1:10 PM EST) P athologist Signature Dispensed? Yes [facility] Specimen Anatomical Collection Method Collection Time Receive d Time (Source) Location / / Volume Laterality Blood specimen 07/07/2017 1:10 PM 017 1:05 (specimen) EST PM EST Daphne Shahid MD BLOOD BANK ORDERABLES Performing Organization Address City/State/[place] [address] POCT Glucose (07/07/2017 11:56 AM EST) P athologist Signature POC Glucose 188 65 - 199 [facility] mg/dL [facility] Comment: Supplemental ranges: <140 mg/dL before meals <180 mg/dL all other times of the day Specimen Anatomical Collection Method Collection Time Receive d Time (Source) Location / / Volume Laterality Blood specimen 07/07/2017 11:56 7 (specimen) AM EST 11:56 AM EST Daphne Shahid MD POINT OF CARE TEST ORDERABLE S Performing Organization Address City/[facility]/[place] [address] POCT Glucose (07/07/2017 11:05 AM EST) P athologist Signature POC Glucose 168 65 - 199 [facility] mg/dL [facility] Comment: Supplemental ranges: <140 mg/dL before meals <180 mg/dL all other times of the day Specimen Anatomical Collection Method Collection Time Receive d Time (Source) Location / / Volume Laterality Blood specimen 07/07/2017 11:05 7 (specimen) AM EST 11:05 AM EST Daphne Shahid MD POINT OF CARE TEST ORDERABLE S Performing Organization Address City/State/[place] [address] POCT Glucose (07/07/2017 10:02 AM EST) athologist Signature POC Glucose 191 65 - 199 KATALINA ZHAORYAN mg/dL [facility] Comment: Supplemental ranges: <140 mg/dL before meals <180 mg/dL all other times of the day Specimen Anatomical Collection Method Collection Time Receive d Time (Source) Location / / Volume Laterality Blood specimen 07/07/2017 10:02 7 (specimen) AM EST 10:02 AM EST Daphne Shahid MD POINT OF CARE TEST ORDERABLE S Performing Organization Address City/State/ZIP Code Phon e Number [address] POCT Glucose (07/07/2017 7:53 AM EST) athologist Signature POC Glucose 178 65 - 199 [facility] mg/dL [facility] Comment: Supplemental ranges: <140 mg/dL before meals <180 mg/dL all other times of the day Specimen Anatomical Collection Method Collection Time Receive d Time (Source) Location / / Volume Laterality Blood specimen 07/07/2017 7:53 AM 017 7:53 (specimen) EST AM EST Daphne Shahid MD POINT OF CARE TEST ORDERABLE S Performing Organization Address City/State/[place] [address] POCT Glucose (07/07/2017 7:03 AM EST) athologist Signature POC Glucose 188 65 - 199 [facility] mg/dL [facility] Comment: Supplemental ranges: <140 mg/dL before meals <180 mg/dL all other times of the day Specimen Anatomical Collection Method Collection Time Receive d Time (Source) Location / / Volume Laterality Blood specimen 07/07/2017 7:03 AM 017 7:03 (specimen) EST AM EST Daphne Shahid MD POINT OF CARE TEST ORDERABLE S Performing Organization Address City/State/[place] [address] (ABNORMAL) POCT Glucose (07/07/2017 6:17 AM EST) athologist Signature POC Glucose 207 (H) 65 - 199 [facility] mg/dL [facility] Comment: Supplemental ranges: [...] City/State/ZIP Code Phon e Number [place] [id number] Differential, Automated (07/07/2017 5:15 AM EST) [facility] Neutrophils % 69.7 % [facility] Neutr Abs (ANC) 5.32 1.70 - [facility] 6.10 [facility] x10(3)/[facility] LABORATORY Lymphocytes % 16.3 % [facility] Lymphocytes Abs 1.2 0.9 - 3.2 [facility] x10(3)/[facility] LABORATORY Monocytes % 10.5 % [facility] Monocyte Abs 0.8 0.3 - 0.9 [facility] x10(3)[facility] LABORATORY Eosinophils % 2.5 % [facility] Eosinophils Abs 0.2 0.0 - 0.4 [facility] x10(3)/[facility]ORATORY Basophils % 0.7 % [facility] Basophils Abs 0.0 0.0 - 0.1 [facility] x10(3)/[facility] LABORATORY Immature Gran % 0.30 % [...] Melisa Gran Abs 0.02 0.00 - 0.04 x10(3)/[facility] MAR Y [facility] Specimen Anatomical Collection Method Collection Time Receive d Time (Source) Location / / Volume Laterality Blood specimen 07/07/2017 5:15 AM 017 5:34 (specimen) EST AM EST Resulting Agency Comment Spec In Lab Daphne Shahid MD HEMATOLOGY ORDERABLES Performing Organization Address City/[facility]/[place] [address] (ABNORMAL) Hemogram (07/07/2017 5:15 AM EST) Analysis Performed At Patho logist Time Signature WBC 7.6 4.0 - 9.5 [facility] x10(3)/[facility] LABORATORY RBC 4.82 4.58 - [facility] 5.54 [facility] x10(6)/[facility] LABORATORY Hemoglobin 14.4 13.7 - [facility] 16.5 gm/dL [facility] Hematocrit 42.1 40.5 - [facility] 48.[facility] % [facility] MCV 87.3 82.9 - [facility] 93.1 [facility] LABORATORY MCH 29.9 27.5 - [facility] 32.1 pg [facility] MCHC 34.2 32.0 - [facility] 35.7 gm/dL [facility] Platelets 188 145 - 357 [facility] x10(3)/[facility] LABORATORY RDWSD 45.1 (H) 36.0 - [facility] 45.0 [facility] LABORATORY RDWCV 14.3 (H) 11.4 - [facility] 13.8 % [facility] MPV 9.4 7.6 - 12.9 [facility] LABORATORY nRBC % Auto 0.0 % [facility] nRBC Abs Auto 0.000 0.000 - [facility] 0.000 [facility] x10(3)/[facility] LABORATORY Specimen Anatomical Collection Method Collection Time Receive d Time (Source) Location / / Volume Laterality Blood specimen 07/07/2017 5:15 AM 017 5:34 (specimen) EST AM EST Resulting Agency Comment Spec In Lab Daphne Shahid MD HEMATOLOGY ORDERABLES Performing Organization Address City/State/[place] [address] (ABNORMAL) APTT (07/07/2017 5:15 AM EST) athologist Signature PTT 69 (H) 25 - 35 sec [facility] Comment: The recommended therapeutic range for fu ll dose, unfractionated heparin at [facility] is 80 ? 114 seconds. [...] Shahid MD HEMATOLOGY ORDERABLES Performing Organization Address City/[facility]/[place] [address] Magnesium (07/07/2017 5:15 AM EST) athologist Signature Magnesium 0.94 0.69 - 1.07 [facility] mmol/L [facility] Specimen Anatomical Collection Method Collection Time Receive d Time (Source) Location / / Volume Laterality Blood specimen 07/07/2017 5:15 AM 017 5:34 (specimen) EST AM EST Resulting Agency Comment Spec In Lab Daphne Shahid MD CHEMISTRY ORDERABLES Performing Organization Address City/[facility]/[place] [address] (ABNORMAL) Basic Metabolic Panel (non-fasting) (07/07/2017 5:15 AM EST) P athologist Signature Glucose Lvl 203 (H) 65 - 199 [facility] mg/dL [facility] Comment: Diabetes: >=200 [...] or in patients with acute kidney failure. http://CURRENT/DHnkdep http://CURRENT/DHMCnkf Specimen Anatomical Collection Method Collection Time Receive d Time (Source) Location / / Volume Laterality Blood specimen 07/07/2017 5:15 AM 017 5:34 (specimen) EST AM EST Resulting Agency Comment Spec In Lab Daphne Shahid MD CHEMISTRY ORDERABLES Performing Organization Address City/State/[place] [address] (ABNORMAL) Cardiac Enzymes (LEB/CGP) (07/07/2017 5:15 AM EST) P athologist Signature Troponin-T 2.07 (H) 0.00 - [facility] 0.00 ng/mL [facility] Comment: The 99th percentile for Troponin T is le ss than 0.01 ng/mL, any detectable cTnT concentration using this assay should be considered elevated. According to the third universal definit ion of myocardial infarction the following criteria with a clinical prese ntation consistent with acute myocardial ischemia meets the diagnosis for a myocardial infarction (VT). Detection of a rise and/or fall of [...] Definition of Myocardial Infarction. Journal of the [employer] 2012;60:1581-98 CK, Total 88 0 - 200 unit/L [facility] Specimen Anatomical Collection Method Collection Time Receive d Time (Source) Location / / Volume Laterality Blood specimen 07/07/2017 5:15 AM 017 5:34 (specimen) EST AM EST Resulting Agency Comment Spec In Lab Daphne Shahid MD CHEMISTRY ORDERABLES Performing Organization Address City/[facility]/ZIP Code Phon e Number [address] POCT Glucose (07/07/2017 5:01 AM EST) athologist Signature POC Glucose 182 65 - 199 [facility]dL [facility] Comment: Supplemental ranges: <140 mg/dL before meals <180 mg/dL all other times of the day Specimen Anatomical Collection Method Collection Time Receive d Time (Source) Location / / Volume Laterality Blood specimen 07/07/2017 5:01 AM 017 5:01 (specimen) EST AM EST Daphne Shahid MD POINT OF CARE TEST ORDERABLE S Performing Organization Address City/[facility]/ZIP [facility] Phon e Number [address] POCT Glucose (07/07/2017 4:08 AM EST) athologist Signature POC Glucose 199 65 - 199 [facility] mg/dL [facility] Comment: Supplemental ranges: <140 mg/dL before meals <180 mg/dL all other times of the day Specimen Anatomical Collection Method Collection Time Receive d Time (Source) Location / / Volume Laterality Blood specimen 07/07/2017 4:08 AM 017 4:08 (specimen) EST AM EST Daphne Shahid MD POINT OF CARE TEST ORDERABLE S Performing Organization Address City/State/ZIP Code Phon e Number [address] POCT Glucose (07/07/2017 3:03 AM EST) athologist Signature POC Glucose 188 65 - 199 K[facility] RYAN mg/dL [facility] Comment: Supplemental ranges: <140 mg/dL before meals <180 mg/dL all other times of the day Specimen Anatomical Collection Method Collection Time Receive d Time (Source) Location / / Volume Laterality Blood specimen 07/07/2017 3:03 AM 017 3:03 (specimen) EST AM EST Daphne Shahid MD POINT OF CARE TEST ORDERABLE S Performing Organization Address City/State/[place] [address] (ABNORMAL) POCT Glucose (07/07/2017 2:08 AM EST) athologist Signature POC Glucose 200 (H) 65 - 199 K[facility]YAN mg/dL [facility] Comment: Supplemental ranges: <140 mg/dL before meals <180 mg/dL all other times of the day Specimen Anatomical Collection Method Collection Time Receive d Time (Source) Location / / Volume Laterality Blood specimen 07/07/2017 2:08 AM 017 2:08 (specimen) EST AM EST Daphne Shahid MD POINT OF CARE TEST ORDERABLE S Performing Organization Address City/State/ZIP Code Phon e Number [address] (ABNORMAL) POCT Glucose (07/07/2017 1:31 AM EST) athologist Signature POC Glucose 209 (H) 65 - 199 [place] mg/dL [facility] Comment: Supplemental ranges: [...] City/State/[place] [address] XR Chest PA or [...] 199 [facility] mg/dL [facility] Comment: Supplemental ranges: <140 mg/dL before meals <180 mg/dL all other times of the day Specimen Anatomical Collection Method Collection Time Receive d Time (Source) Location / / Volume Laterality Blood specimen 07/07/2017 12:07 7 (specimen) AM EST 12:07 AM EST Daphne Shahid MD POINT OF CARE TEST ORDERABLE S Performing Organization Address City/State/[place] [address] (ABNORMAL) APTT (07/07/2017 12:00 AM EST) athologist Signature PTT 103 (H) 25 - 35 sec [facility] Comment: The recommended therapeutic range for fu ll dose, unfractionated heparin at [facility] is 80 ? 114 seconds. [...] Shahid MD HEMATOLOGY ORDERABLES Performing Organization Address City/[facility]/[place] [address] POCT Glucose (07/06/2017 9:55 PM EST) athologist Signature POC Glucose 109 65 - 199 [facility] mg/dL [facility] Comment: Supplemental ranges: <140 mg/dL before meals <180 mg/dL all other times of the day Specimen Anatomical Collection Method Collection Time Receive d Time (Source) Location / / Volume Laterality Blood specimen 07/06/2017 9:55 PM 017 9:55 (specimen) EST PM EST Daphne Shahid MD POINT OF CARE TEST ORDERABLE S Performing Organization Address City/[facility]/[place] [address] POCT Glucose (07/06/2017 9:04 PM EST) athologist Signature POC Glucose 120 65 - 199 [facility] mg/dL [facility] Comment: Supplemental ranges: <140 mg/dL before meals <180 mg/dL all other times of the day Specimen Anatomical Collection Method Collection Time Receive d Time (Source) Location / / Volume Laterality Blood specimen 07/06/2017 9:04 PM 017 9:04 (specimen) EST PM EST Daphne Shahid MD POINT OF CARE TEST ORDERABLE S Performing Organization Address City/[facility]/[place] [address] POCT Glucose (07/06/2017 7:45 PM EST) athologist Signature POC Glucose 158 65 - 199 [facility] mg/dL [facility] Comment: Supplemental ranges: <140 mg/dL before meals <180 mg/dL all other times of the day Specimen Anatomical Collection Method Collection Time Receive d Time (Source) Location / / Volume Laterality Blood specimen 07/06/2017 7:45 PM 017 7:45 (specimen) EST PM EST Daphne Shahid MD POINT OF CARE TEST ORDERABLE S Performing Organization Address City/[facility]/[place] [address] Potassium (07/06/2017 7:40 PM EST) athologist Signature Potassium 3.9 3.5 - 5.0 [facility] mmol/L [facility] Comment: Please note: [...] Shahid MD CHEMISTRY ORDERABLES Performing Organization Address City/[facility]/[place] [address] (ABNORMAL) Cardiac Enzymes (LEB/CGP) (07/06/2017 7:40 PM EST) athologist Signature Troponin-T 2.27 (H) 0.00 - [place] 0.00 ng/mL [facility] Comment: The 99th percentile for Troponin T is le ss than 0.01 ng/mL, any detectable cTnT concentration using this assay should be considered elevated. According to the third universal definit ion of myocardial infarction the following criteria with a clinical prese ntation consistent with acute myocardial ischemia meets the diagnosis for a myocardial infarction (VT). Detection of a rise and/or fall of [...] Definition of Myocardial Infarction. Journal of the [employer] 2012;60:1581-98 CK, Total 93 0 - 200 unit/L [facility] Specimen Anatomical Collection Method Collection Time Receive d Time (Source) Location / / Volume Laterality Blood specimen 07/06/2017 7:40 PM 017 7:52 (specimen) EST PM EST Resulting Agency Comment Spec In Lab Daphne Shahid MD CHEMISTRY ORDERABLES Performing Organization Address City/State/[place] [address] (ABNORMAL) POCT Glucose (07/06/2017 7:13 PM EST) athologist Signature POC Glucose 200 (H) 65 - 199 [facility] Comment: Supplemental ranges: <140 mg/dL before meals <180 mg/dL all other times of the day Specimen Anatomical Collection Method Collection Time Receive d Time (Source) Location / / Volume Laterality Blood specimen 07/06/2017 7:13 PM 017 7:13 (specimen) EST PM EST Daphne Shahid MD POINT OF CARE TEST ORDERABLE S Performing Organization Address City/[facility]/[place] [address] (ABNORMAL) APTT (07/06/2017 6:15 PM EST) athologist Signature PTT 94 (H) 25 - 35 sec [facility] Comment: The recommended therapeutic range for fu ll dose, unfractionated heparin at [facility] is 80 ? 114 seconds. [...] Shahid MD HEMATOLOGY ORDERABLES Performing Organization Address City/[facility]/[place] [address] (ABNORMAL) POCT Glucose (07/06/2017 6:03 PM EST) athologist Signature POC Glucose 236 (H) 65 - 199 [facility] mg/dL [facility] Comment: Supplemental ranges: <140 mg/dL before meals <180 mg/dL all other times of the day Specimen Anatomical Collection Method Collection Time Receive d Time (Source) Location / / Volume Laterality Blood specimen 07/06/2017 6:03 PM 017 6:03 (specimen) EST PM EST Daphne Shahid MD POINT OF CARE TEST ORDERABLE S Performing Organization Address City/[facility]/[place] [address] (ABNORMAL) POCT Glucose (07/06/2017 5:01 PM EST) athologist Signature POC Glucose 235 (H) 65 - 199 [facility] mg/dL [facility] Comment: Supplemental ranges: <140 mg/dL before meals <180 mg/dL all other times of the day Specimen Anatomical Collection Method Collection Time Receive d Time (Source) Location / / Volume Laterality Blood specimen 07/06/2017 5:01 PM 017 5:01 (specimen) EST PM EST Daphne Shahid MD POINT OF CARE TEST ORDERABLE S Performing Organization Address City/State/[place] [address] (ABNORMAL) POCT Glucose (07/06/2017 4:06 PM EST) athologist Signature POC Glucose 202 (H) 65 - 199 [place] mg/dL [facility] Comment: Supplemental ranges: <140 mg/dL before meals <180 mg/dL all other times of the day Specimen Anatomical Collection Method Collection Time Receive d Time (Source) Location / / Volume Laterality Blood specimen 07/06/2017 4:06 PM 017 4:06 (specimen) EST PM EST Daphne Shahid MD POINT OF CARE TEST ORDERABLE S Performing Organization Address City/State/[place] [address] POCT Glucose (07/06/2017 2:59 PM EST) athologist Signature POC Glucose 178 65 - 199 [place] mg/dL [facility] Comment: Supplemental ranges: <140 mg/dL before meals <180 mg/dL all other times of the day Specimen Anatomical Collection Method Collection Time Receive d Time (Source) Location / / Volume Laterality Blood specimen 07/06/2017 2:59 PM 017 2:59 (specimen) EST PM EST Daphne Shahid MD POINT OF CARE TEST ORDERABLE S Performing Organization Address City/State/[place] [address] (ABNORMAL) Cardiac Enzymes (LEB/CGP) (07/06/2017 2:10 PM EST) athologist Signature Troponin-T 2.34 (H) 0.00 - [facility] 0.00 ng/mL [facility] Comment: The 99th percentile for Troponin T is le ss than 0.01 ng/mL, any detectable cTnT concentration using this assay should be considered elevated. According to the third universal definit ion of myocardial infarction the following criteria with a clinical prese ntation consistent with acute myocardial ischemia meets the diagnosis for a myocardial infarction (VT). Detection of a rise and/or fall of [...] Definition of Myocardial Infarction. Journal of the [employer] 2012;60:1581-98 CK, Total 101 0 - 200 unit/L [facility] Specimen Anatomical Collection Method Collection Time Receive d Time (Source) Location / / Volume Laterality Blood specimen 07/06/2017 2:10 PM 017 2:26 (specimen) EST PM EST Resulting Agency Comment Spec In Lab Daphne Shahid MD CHEMISTRY ORDERABLES Performing Organization Address City/State/[place] [address] POCT Glucose (07/06/2017 2:08 PM EST) P athologist Signature POC Glucose 192 65 - 199 [facility] mg/dL [facility] Comment: Supplemental ranges: <140 mg/dL before meals <180 mg/dL all other times of the day Specimen Anatomical Collection Method Collection Time Receive d Time (Source) Location / / Volume Laterality Blood specimen 07/06/2017 2:08 PM 017 2:08 (specimen) EST PM EST Daphne Shahid MD POINT OF CARE TEST ORDERABLE S Performing Organization Address City/State/ZIP Code Phon e Number [address] POCT Glucose (07/06/2017 1:04 PM EST) P athologist Signature POC Glucose 162 65 - 199 [facility] mg/dL [facility] Comment: Supplemental ranges: <140 mg/dL before meals <180 mg/dL all other times of the day Specimen Anatomical Collection Method Collection Time Receive d Time (Source) Location / / Volume Laterality Blood specimen 07/06/2017 1:04 PM 017 1:04 (specimen) EST PM EST Daphne Shahid MD POINT OF CARE TEST ORDERABLE S Performing Organization Address City/[facility]/ZIP Code Phon e Number [address] POCT Glucose (07/06/2017 12:05 PM EST) athologist Signature POC Glucose 196 65 - 199 [facility] mg/dL [facility] Comment: Supplemental ranges: <140 mg/dL before meals <180 mg/dL all other times of the day Specimen Anatomical Collection Method Collection Time Receive d Time (Source) Location / / Volume Laterality Blood specimen 07/06/2017 12:05 7 (specimen) PM EST 12:05 PM EST Daphne Shahid MD POINT OF CARE TEST ORDERABLE S Performing Organization Address City/State/[place] [address] EKG 12 Lead (07/06/2017 12:00 PM EST) Component Value Ref Range Test Analysis Performed Pathologis t Method Time At Signature Ventricular rate 91 BPM MUSE SYSTEM Atrial Rate 91 BPM MUSE SYSTEM P-R Interval 140 ms MUSE SYSTEM QRS Duration 94 ms MUSE SYSTEM Q-T Interval 394 ms MUSE SYSTEM QTC Calculated 484 ms MUSE SYSTEM (Bezet) Calculated P Lamona 36 degrees MUSE SYSTEM Calculated R Lamona -19 degrees MUSE SYSTEM Calculated T Lamona 104 degrees MUSE SYSTEM INTERPRETATION Normal sinus rhythm MUSE SYSTEM 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) ST & T wave abnormality, consider lateral ischemia Abnormal ECG When compared with ECG of 05-JUL-2017 20:39, No significant change was found Confirmed by MD Verma Gregory A. ([id number]) on 07/06/2017 5:07:33 PM Specimen Anatomical Collection [...] BLOOD BANK ORDERABLES Performing Organization Address City/[facility]/[place] [address] Antibody screen (07/06/2017 12:00 PM EST) [facility] Method Time Signature Ab Screen Negative [facility] LABORATORY Expires at 07/09/2017 [facility] 235 on: [facility] Specimen Anatomical Collection Method Collection Time Receive d Time (Source) Location / / Volume Laterality Blood specimen 07/06/2017 12:00 7 (specimen) PM EST 12:24 PM EST Resulting Agency Comment Spec In Lab Daphne Shahid MD BLOOD BANK ORDERABLES Performing Organization Address City/[facility]/[place] [address] ABO/Rh Typing (07/06/2017 12:00 [...] Organization Address City/State/[place] [address] Prothrombin Time (07/06/2017 11:24 [...] Shahid MD HEMATOLOGY ORDERABLES Performing Organization Address City/[facility]/[place] [address] (ABNORMAL) APTT (07/06/2017 11:24 AM EST) athologist Signature PTT 52 (H) 25 - 35 sec [facility] Comment: The recommended therapeutic range for fu ll dose, unfractionated heparin at [facility] is 80 ? 114 seconds. [...] Organization Address City/State/[place] [address] POCT Glucose (07/06/2017 11:02 AM EST) athologist Signature POC Glucose 187 65 - 199 [facility] mg/dL [facility] Comment: Supplemental ranges: <140 mg/dL before meals <180 mg/dL all other times of the day Specimen Anatomical Collection Method Collection Time Receive d Time (Source) Location / / Volume Laterality Blood specimen 07/06/2017 11:02 7 (specimen) AM EST 11:02 AM EST Daphne Shahid MD POINT OF CARE TEST ORDERABLE S Performing Organization Address City/State/ZIP Code Phon e Number [address] POCT Glucose (07/06/2017 10:18 AM EST) athologist Signature POC Glucose 193 65 - 199 [facility] mg/dL [facility] Comment: Supplemental ranges: <140 mg/dL before meals <180 mg/dL all other times of the day Specimen Anatomical Collection Method Collection Time Receive d Time (Source) Location / / Volume Laterality Blood specimen 07/06/2017 10:18 7 (specimen) AM EST 10:18 AM EST Daphne Shahid MD POINT OF CARE TEST ORDERABLE S Performing Organization Address City/State/ZIP Code Phon e Number [address] POCT Glucose (07/06/2017 9:25 AM EST) athologist Signature POC Glucose 182 65 - 199 [place] mg/dL [facility] Comment: Supplemental ranges: <140 mg/dL before meals <180 mg/dL all other times of the day Specimen Anatomical Collection Method Collection Time Receive d Time (Source) Location / / Volume Laterality Blood specimen 07/06/2017 9:25 AM 017 9:25 (specimen) EST AM EST Daphne Shahid MD POINT OF CARE TEST ORDERABLE S Performing Organization Address City/State/[place] [address] (ABNORMAL) Cardiac Enzymes (LEB/CGP) (07/06/2017 8:10 AM EST) athologist Signature Troponin-T 2.26 (H) 0.00 - [facility] 0.00 ng/mL [facility] Comment: The 99th percentile for Troponin T is le ss than 0.01 ng/mL, any detectable cTnT concentration using this assay should be considered elevated. According to the third universal definit ion of myocardial infarction the following criteria with a clinical prese ntation consistent with acute myocardial ischemia meets the diagnosis for a myocardial infarction (VT). Detection of a rise and/or fall of [...] Definition of Myocardial Infarction. Journal of the [employer] 2012;60:1581-98 CK, Total 124 0 - 200 unit/L [facility] Specimen Anatomical Collection Method Collection Time Receive d Time (Source) Location / / Volume Laterality Blood specimen 07/06/2017 8:10 AM 017 8:23 (specimen) EST AM EST Resulting Agency Comment Spec In Lab Daphne Shahid MD CHEMISTRY ORDERABLES Performing Organization Address City/State/[place] [address] Magnesium (07/06/2017 8:10 AM EST) athologist Signature Magnesium 0.84 0.69 - 1.07 [facility] mmol/L [facility] Specimen Anatomical Collection Method Collection Time Receive d Time (Source) Location / / Volume Laterality Blood specimen 07/06/2017 8:10 AM 017 8:21 (specimen) EST AM EST Resulting Agency Comment Spec In Lab Daphne Shahid MD CHEMISTRY ORDERABLES Performing Organization Address City/[facility]/[place] [address] (ABNORMAL) Basic Metabolic Panel (non-fasting) (07/06/2017 8:10 AM EST) P athologist Signature Glucose Lvl 199 65 - 199 [facility] mg/dL [facility] Comment: Diabetes: >=200 [...] or in patients with acute kidney failure. [email or web address] Specimen Anatomical Collection Method Collection Time Receive d Time (Source) Location / / Volume Laterality Blood specimen 07/06/2017 8:10 AM 017 8:21 (specimen) EST AM EST Resulting Agency Comment Spec In Lab Daphne Shahid MD CHEMISTRY ORDERABLES Performing Organization Address City/[facility]/[place] [address] POCT Glucose (07/06/2017 7:34 AM EST) P athologist Signature POC Glucose 198 65 - 199 [facility] Comment: Supplemental ranges: <140 mg/dL before meals <180 mg/dL all other times of the day Specimen Anatomical Collection Method Collection Time Receive d Time (Source) Location / / Volume Laterality Blood specimen 07/06/2017 7:34 AM 017 7:34 (specimen) EST AM EST Daphne Shahid MD POINT OF CARE TEST ORDERABLE S Performing Organization Address City/State/ZIP Code Phon e Number [address] POCT Glucose (07/06/2017 7:03 AM EST) athologist Signature POC Glucose 181 65 - 199 [facility] mg/dL [facility] Comment: Supplemental ranges: <140 mg/dL before meals <180 mg/dL all other times of the day Specimen Anatomical Collection Method Collection Time Receive d Time (Source) Location / / Volume Laterality Blood specimen 07/06/2017 7:03 AM 017 7:03 (specimen) EST AM EST Daphne Shahid MD POINT OF CARE TEST ORDERABLE S Performing Organization Address City/State/[place] [address] XR Chest PA or [...] 199 [facility] mg/dL [facility] Comment: Supplemental ranges: [...] City/State/[place] [address] POCT Glucose (07/06/2017 5:08 AM EST) athologist Signature POC Glucose 154 65 - 199 [facility] mg/dL [facility] Comment: Supplemental ranges: <140 mg/dL before meals <180 mg/dL all other times of the day Specimen Anatomical Collection Method Collection Time Receive d Time (Source) Location / / Volume Laterality Blood specimen 07/06/2017 5:08 AM 017 5:08 (specimen) EST AM EST Daphne Shahid MD POINT OF CARE TEST ORDERABLE S Performing Organization Address City/State/ZIP Code Phon e Number [address] POCT Glucose (07/06/2017 4:05 AM EST) athologist Signature POC Glucose 142 65 - 199 [facility] mg[facility]dL [facility] Comment: Supplemental ranges: <140 mg/dL before meals <180 mg/dL all other times of the day Specimen Anatomical Collection Method Collection Time Receive d Time (Source) Location / / Volume Laterality Blood specimen 07/06/2017 4:05 AM 017 4:05 (specimen) EST AM EST Daphne Shahid MD POINT OF CARE TEST ORDERABLE S Performing Organization Address City/[facility]/ZIP Code Phon e Number [address] POCT Glucose (07/06/2017 3:00 AM EST) athologist Signature POC Glucose 116 65 - 199 [facility] mg/dL [facility] Comment: Supplemental ranges: <140 mg/dL before meals <180 mg/dL all other times of the day Specimen Anatomical Collection Method Collection Time Receive d Time (Source) Location / / Volume Laterality Blood specimen 07/06/2017 3:00 AM 017 3:00 (specimen) EST AM EST Daphne Shahid MD POINT OF CARE TEST ORDERABLE S Performing Organization Address City/State/ZIP Code Phon e Number [address] Potassium (07/06/2017 2:20 AM EST) athologist Signature Potassium 3.9 3.5 - 5.0 [facility] mmol/L [facility] Comment: Please note: [...] City/State/[place] [address] Differential, Automated (07/06/2017 2:20 AM EST) athologist Signature Neutrophils % 72.9 % [facility] Neutr Abs (ANC) 5.53 1.70 - [facility] 6.10 [facility] x10(3)[facility] LABORATORY Lymphocytes % 16.4 % [facility] Lymphocytes Abs 1.2 0.9 - 3.2 [facility] x10(3)/[facility] LABORATORY Monocytes % 9.4 % [facility] Monocyte Abs 0.7 0.3 - 0.9 [facility] x10(3)/[facility] LABORATORY Eosinophils % 0.5 % [facility] Eosinophils Abs 0.0 0.0 - 0.4 [facility] x10(3)[facility] LABORATORY Basophils % 0.4 % [facility] Basophils Abs 0.0 0.0 - 0.1 [facility] x10(3)/[facility] LABORATORY Immature Gran % 0.40 % [facility] Comment: Immature granulocytes(IG's)percentage an d absolute count will include metamyelocytes, myelocytes, and promyelo cytes. Blood smears from CBCs yielding IG's will be scanned manually for concor dance. If this scan disagrees with the automated IG or if promyelocytes are not ed, a manual differential will be performed. Melisa Gran Abs 0.03 0.00 - 0.04 x10(3)/[facility] MAR Y [facility] LABORATORY Specimen Anatomical Collection Method Collection Time Receive d Time (Source) Location / / Volume Laterality Blood specimen 07/06/2017 2:20 AM 017 2:33 (specimen) EST AM EST Resulting Agency Comment Spec In Lab Daphne Shahid MD HEMATOLOGY ORDERABLES Performing Organization Address City/State/[place] [address] (ABNORMAL) Hemogram (07/06/2017 2:20 AM EST) Analysis Performed At Patho logist Time Signature WBC 7.6 4.0 - 9.5 [facility] x[facility](3[facility] LABORATORY RBC 4.52 (L) 4.58 - [facility] 5.54 [facility] x10(6)/[facility] LABORATORY Hemoglobin 13.4 (L) 13.7 - [facility] 16.5 gm/dL [facility] Hematocrit 39.7 (L) 40.5 - [facility] 48.5 % [facility] MCV 87.8 82.9 - [facility] 93.1 [facility] LABORATORY MCH 29.6 27.5 - [place] RYAN 32.1 pg [facility] MCHC 33.8 32.0 - [facility] 35.7 gm/dL [facility] Platelets 189 145 - 357 [facility] x10(3)/[facility] LABORATORY RDWSD 45.6 (H) 36.0 - [facility] 45.0 [facility] LABORATORY RDWCV 14.3 (H) 11.4 - [facility] 13.8 % [facility] MPV 9.1 7.6 - 12.9 [facility] nRBC % Auto 0.0 % [facility] nRBC Abs Auto 0.000 0.000 - [place] Kaesu 0.000 [facility] x10(3)/[facility] LABORATORY Specimen Anatomical Collection Method Collection Time Receive d Time (Source) Location / / Volume Laterality Blood specimen 07/06/2017 2:20 AM 017 2:33 (specimen) EST AM EST Resulting Agency Comment Spec In Lab Daphne Shahid MD HEMATOLOGY ORDERABLES Performing Organization Address City/State/ZIP Code Phon e Number [facility] [place] [address] (ABNORMAL) APTT (07/06/2017 2:20 AM EST) athologist Signature PTT 52 (H) 25 - 35 sec [facility] Comment: The recommended therapeutic range for fu ll dose, unfractionated heparin at [facility] is 80 ? 114 seconds. [...] Organization Address City/State/[place] [address] POCT Glucose (07/06/2017 2:20 AM EST) athologist Signature POC Glucose 115 65 - 199 [facility] mg/dL [facility] Comment: Supplemental ranges: <140 mg/dL before meals <180 mg/dL all other times of the day Specimen Anatomical Collection Method Collection Time Receive d Time (Source) Location / / Volume Laterality Blood specimen 07/06/2017 2:20 AM 017 2:20 (specimen) EST AM EST Daphne Shahid MD POINT OF CARE TEST ORDERABLE S Performing Organization Address City/State/[place] [address] (ABNORMAL) Cardiac Enzymes (LEB/CGP) (07/06/2017 2:20 AM EST) athologist Signature Troponin-T 2.13 (H) 0.00 - [facility] 0.00 ng/mL [facility] Comment: The 99th percentile for Troponin T is le ss than 0.01 ng/mL, any detectable cTnT concentration using this assay should be considered elevated. According to the third universal definit ion of myocardial infarction the following criteria with a clinical prese ntation consistent with acute myocardial ischemia meets the diagnosis for a myocardial infarction (VT). Detection of a rise and/or fall of [...] Definition of Myocardial Infarction. Journal of the [employer] College [employer] 2012;60:1581-98 CK, Total 129 0 - 200 unit/L [facility] Specimen Anatomical Collection Method Collection Time Receive d Time (Source) Location / / Volume Laterality Blood specimen 07/06/2017 2:20 AM 017 2:33 (specimen) EST AM EST Resulting Agency Comment Spec In Lab Daphne Shahid MD CHEMISTRY ORDERABLES Performing Organization Address City/State/[place] [address] (ABNORMAL) Hemoglobin A1c (07/06/2017 [...] [id number] Est Avg Gluc See note mg/dL ST [...] into estimated average glucose values. ??Diabetes Care 2008:31(8):7318-0681. Specimen Anatomical Collection Method Collection Time Receive d Time (Source) Location / / Volume Laterality Blood specimen 07/06/2017 2:20 AM 017 2:34 (specimen) EST AM EST Resulting Agency Comment Spec In Lab Daphne Shahid MD CHEMISTRY ORDERABLES Performing Organization Address City/State/[place] [address] (ABNORMAL) Lipid Panel (07/06/2017 2:20 AM EST) [facility] Method Time Signature Chol, Total 150 <=239 [place] mg/dL [facility] Triglycerides 129 <=199 [place] mg/dL [facility] HDL 32 (L) >=40 [place] mg/dL [facility] LDL Cholesterol 92 <=190 [place] mg/dL [facility] Chol/HDL Ratio 4.[address] [facility] Lipid See Note [place] Hernandes [facility] Comment: Lipid management should be guided by a p atient? s ASCVD risk, goals and preferences. ACC/AHA Guidelines recommend high intens ity statin if clinical ASCVD or LDL greater than or equal to 190 mg/dL. http://ProNoxisurPlayteau.[email or web address]/PVQ-THT-Zbulthttk Adults aged 40-75 with LDL 70-189 mg/dL should have their 10 year ASCVD risk estimated with the ACC/AHA ASCVD risk es timator http://tools.acc.org/ZOKBV-Cyhr-Wyevqfvf r/ Statin should be discussed if risk [...] City/State/[place] [address] POCT Glucose (07/06/2017 1:09 AM EST) P athologist Signature POC Glucose 121 65 - 199 [facility] mg/dL [facility] Comment: Supplemental ranges: <140 mg/dL before meals <180 mg/dL all other times of the day Specimen Anatomical Collection Method Collection Time Receive d Time (Source) Location / / Volume Laterality Blood specimen 07/06/2017 1:09 AM 017 1:09 (specimen) EST AM EST Daphne Shahid MD POINT OF CARE TEST ORDERABLE S Performing Organization Address City/State/ZIP [place] [address] POCT Glucose (07/06/2017 12:06 AM EST) athologist Signature POC Glucose 147 65 - 199 [facility] mg/dL [facility] Comment: Supplemental ranges: <140 mg/dL before meals <180 mg/dL all other times of the day Specimen Anatomical Collection Method Collection Time Receive d Time (Source) Location / / Volume Laterality Blood specimen 07/06/2017 12:06 7 (specimen) AM EST 12:06 AM EST Daphne Shahid MD POINT OF CARE TEST ORDERABLE S Performing Organization Address City/State/[place] [address] (ABNORMAL) POCT Glucose (07/05/2017 10:56 PM EST) athologist Signature POC Glucose 200 (H) 65 - 199 [facility] mg/dL [facility] Comment: Supplemental ranges: <140 mg/dL before meals <180 mg/dL all other times of the day Specimen Anatomical Collection Method Collection Time Receive d Time (Source) Location / / Volume Laterality Blood specimen 07/05/2017 10:56 7 (specimen) PM EST 10:56 PM EST Daphne Shahid MD POINT OF CARE TEST ORDERABLE S Performing Organization Address City/State/[place] [address] (ABNORMAL) POCT Glucose (07/05/2017 10:05 PM EST) athologist Signature POC Glucose 225 (H) 65 - 199 [facility] mg/dL [facility] Comment: Supplemental ranges: <140 mg/dL before meals <180 mg/dL all other times of the day Specimen Anatomical Collection Method Collection Time Receive d Time (Source) Location / / Volume Laterality Blood specimen 07/05/2017 10:05 7 (specimen) PM EST 10:05 PM EST Daphne Shahid MD POINT OF CARE TEST ORDERABLE S Performing Organization Address City/State/[place] [address] (ABNORMAL) POCT Glucose (07/05/2017 9:02 PM EST) P athologist Signature POC Glucose 301 (H) 65 - 199 [place] mg/dL [facility] Comment: Supplemental ranges: [...] Code Phon e Number [facility] [address] XR Chest PA or [...] 474 ms MUSE SYSTEM (Bezet) Calculated P Lamona 50 degrees MUSE SYSTEM Calculated R Lamona -28 degrees MUSE SYSTEM Calculated T Lamona 90 degrees MUSE SYSTEM INTERPRETATION Sinus tachycardia [...] (ABNORMAL) Differential, Automated (07/05/2017 8:20 PM EST) [facility] gist Method Time Signature Neutrophils % 88.4 % [facility] Neutr Abs (ANC) 9.08 (H) 1.70 - [facility] 6.10 [facility] x10(3)/[facility] L LABORATORY Lymphocytes % 7.0 % [facility] Lymphocytes Abs 0.7 (L) 0.9 - 3.2 [facility] x10(3)/[facility] LABORATORY Monocytes % 3.7 % [facility] Monocyte Abs 0.4 0.3 - 0.9 [facility] x10(3)/[facility] LABORATORY Eosinophils % 0.1 % [facility] Eosinophils Abs 0.0 0.0 - 0.4 [facility] x10(3)/[facility] LABORATORY Basophils % 0.2 % [facility] Basophils Abs 0.0 0.0 - 0.1 [facility] x10(3)/[facility] LABORATORY Immature Gran % 0.60 % [facility] [...] City/State/[place] [address] (ABNORMAL) Hemogram (07/05/2017 8:20 PM EST) Analysis Performed At Patho logist Time Signature WBC 10.3 (H) 4.0 - 9.5 [facility] x10(3)/[facility] LABORATORY RBC 4.64 4.58 - [facility] RYAN 5.54 [facility] x10(6)/[facility] LABORATORY Hemoglobin 14.1 13.7 - [facility] 16.5 gm/dL [facility] Hematocrit 40.8 40.5 - [place] 48.5 % [facility] MCV 87.9 82.9 - [facility] 93.1 [facility] LABORATORY MCH 30.4 27.5 - [place] 32.1 pg [facility] MCHC 34.6 32.0 - [facility] 35.7 gm/dL [facility] Platelets 204 145 - 357 [facility] x10(3)/[facility] LABORATORY RDWSD 46.1 (H) 36.0 - [place] 45.0 [facility] LABORATORY RDWCV 14.5 (H) 11.4 - [facility] 13.8 % [facility] MPV 9.7 7.6 - 12.9 [facility] LABORATORY nRBC % Auto 0.0 % [facility] nRBC Abs Auto 0.000 0.000 - [place] 0.000 [facility] x10(3)/[facility] LABORATORY Specimen Anatomical Collection Method Collection Time Receive d Time (Source) Location / / Volume Laterality Blood specimen 07/05/2017 8:20 PM 017 8:27 (specimen) EST PM EST Resulting Agency Comment Spec In Lab Daphne Shahid MD HEMATOLOGY ORDERABLES Performing Organization Address City/[facility]/ZIP Code Phon e Number [address] APTT (07/05/2017 8:20 PM EST) P athologist Signature PTT 32 25 - 35 sec [facility] Comment: The recommended therapeutic range for fu ll dose, unfractionated heparin at [facility] is 80 ? 114 seconds. [...] Shahid MD HEMATOLOGY ORDERABLES Performing Organization Address City/[facility]/ZIP [facility] [place] [address] (ABNORMAL) Cardiac Enzymes (LEB/CGP) (07/05/2017 8:20 PM EST) P athologist Signature Troponin-T 2.11 (H) 0.00 - [facility] 0.00 ng/mL [facility] Comment: The 99th percentile for Troponin T is le ss than 0.01 ng/mL, any detectable cTnT concentration using this assay should be considered elevated. According to the third universal definit ion of myocardial infarction the following criteria with a clinical prese ntation consistent with acute myocardial ischemia meets the diagnosis for a myocardial infarction (VT). Detection of a rise and/or fall of [...] Definition of Myocardial Infarction. Journal of the [place] College of Cardiology 2012;60:1581-98 CK, Total 149 0 - 200 unit/L [facility] Specimen Anatomical Collection Method Collection Time Receive d Time (Source) Location / / Volume Laterality Blood specimen 07/05/2017 8:20 PM 017 8:27 (specimen) EST PM EST Resulting Agency Comment Spec In Lab Daphne Shahid MD CHEMISTRY ORDERABLES Performing Organization Address City/[facility]/[place] [address] (ABNORMAL) Magnesium (07/05/2017 8:20 PM EST) P athologist Signature Magnesium 0.68 (L) 0.69 - 1.07 [facility] mmol/L [facility] Specimen Anatomical Collection Method Collection Time Receive d Time (Source) Location / / Volume Laterality Blood specimen 07/05/2017 8:20 PM 017 8:27 (specimen) EST PM EST Resulting Agency Comment Spec In Lab Daphne Shahid MD CHEMISTRY ORDERABLES Performing Organization Address City/State/[place] [address] (ABNORMAL) Basic Metabolic Panel (non-fasting) (07/05/2017 8:20 PM EST) athologist Signature Glucose Lvl 321 (H) 65 - 199 [facility] mg/dL [facility] Comment: Diabetes: >=200 [...] or in patients with acute kidney failure. [email or web address] [email or web address]/DHMCnkf Specimen Anatomical Collection Method Collection Time Receive d Time (Source) Location / / Volume Laterality Blood specimen 07/05/2017 8:20 PM 017 8:27 (specimen) EST PM EST Resulting Agency Comment Spec In Lab Daphne Shahid MD CHEMISTRY ORDERABLES Performing Organization Address City/State/[place] [address] (ABNORMAL) POCT Glucose (07/05/2017 7:32 PM EST) athologist Signature POC Glucose 296 (H) 65 - 199 [facility] mg/dL [facility] Comment: Supplemental ranges: <140 mg/dL before meals <180 mg/dL all other times of the day Specimen Anatomical Collection Method Collection Time Receive d Time (Source) Location / / Volume Laterality Blood specimen 07/05/2017 7:32 PM 017 7:32 (specimen) EST PM EST Daphne Shahid MD POINT OF CARE TEST ORDERABLE S Performing Organization Address City/State/ZIP Code [place] [address] CARDIAC CATHETERIZATION (07/05/2017 6:47 PM EST) Anatomical Region Laterality Modality Other Specimen (Source) Anatomical Location Collection Method / Collectio n Time Received Time / Laterality Volume Narrative 07/05/2017 7:27 PM EST ?[facility] ? Cardiac Cathete rization/Intervention Report ? Patient Name: Natalya, Gregory ? Procedure Date: 07/05/2017 ? A #: [id number] ? Primary Physician: Clarisa, Jet T ? Case #: [id number] ? File Name: [id number] ? Catheterization Order Number: [id number] ? [facility] ? Final Report [place], [place] ? Patient Name: ? Gregory Natalya ?ID#: ?[id number] ? : ?1945 ? Procedure Date: ? [...] presented with: non -STEMI (w/i 7 days). [place]ic ?Cardiovascular Society angina c lass was IV. [...] site angio graphy and IABP insertion in photo lab specialist. ? Jet Mckenna, M.D. ? Electronically Signed by: Jet Sampson DeVrizack s, M.D. ? Report Finalized: 07/05/2017 ??19:23 ? Report Last Ammended: 10/26/2017 ??10:29 ? Procedure Note Jet Mckenna MD - 10/26/2017Formatt ing of this note might be different from the original. [facility] Cardiac Catheterization/Intervention Re port Patient Name: Gregory Hoang Procedure Date: 07/05/2017 A #: [id number] Primary Physician: Jet Mckenna Case #: [id number] File Name: [id number] Catheterization Order Number: [id number] [facility] Final Report [place], [place] Patient Name: Gregory Hoang ID#: [id number] : 1945 Procedure Date: July 05, [...] presented with: non-STEMI ( w/i 7 days). [place] [employer] Society angina class was IV. No [...] site angiograph y and IABP insertion in photo lab specialist. Jet Mckenna M.D. Electronically Signed by: [...] E ? (Age): 1945(72y) Med Rec#: ? [id number] ?Sex: ?M ? Site Loc: ? [facility] ?Ht / Wt: ??173(cm)/86(kg) Pt. Loc: ?[facility] ? BSA: ?2 Study Date: ?? 07/05/2017 ?Pt. Type: Inpatient Tape: ? Referring: Daphne Shahid ([id number]) Referring: MANDA ALCANTAR Reading: Blade Preston ([id number]) Personnel Supervisor: Dayami Paula BA, [facility] [...] E-wave Vmax ?0.8 ?m/sec ? MV deceleration [id number] ?msec ? MV A-wave Vmax ?0.8 ?m/sec [...] ? Mid-Inferior ?Akinetic ? Mid-Inferoseptal ?Hypokinetic ? [place]-Septal ? Akinetic ? [place]-Anterior ? Hypokinetic ? [place]-Lateral ?Hypokinetic ? [place]-Inferior ? Akinetic ? [place]-Tip ?Akinetic ? This report has been electronically sign ed by: _ Blade Preston MD ? 07/06/2017 08 :53:15 Images reviewed and interpretation verif ied [facility] Cardiac Ultrasound Laboratory Procedure Note Blade Preston MD - 07/06/2017Formatt ing of this note might be different from the original. Procedure: Transthoracic Echocardiogram Patient: NATALYA MCBRIDE(Age): [birth year]72y) Med Rec#: [id number] Sex: M Site Loc: [facility] Ht / Wt: 173(cm)/86(kg) Pt. Loc: U BSA: 2 Study Date: 07/05/2017 Pt. Type: Inpatie nt Tape: Referring: Daphne Shahid ([id number]) Referring: MANDA ALCANTAR Reading: Blade Preston ([id number]) Personnel Supervisor: Dayami Paula BA, [facility] [...] MV E-wave Vmax 0.8 m/sec MV deceleration [id number] msec MV A-wave Vmax 0.8 m/sec MV [...] Hypokinetic Mid-Posterolateral Hypokinetic Mid-Inferior Akinetic Mid-Inferoseptal Hypokinetic [place]-Septal Akinetic [place]-Anterior Hypokinetic [place]-Lateral Hypokinetic [place]-Inferior Akinetic [place]-Tip Akinetic This report has been electronically sign ed by: _ Blade Preston MD 07/06/2017 08:53:15 Images reviewed and interpretation verif ied [facility] Cardiac Ultrasound Laboratory Daphne Shahid MD ECHO ORDERABLES Differential, Automated (07/05/2017 4:55 PM EST) athologist Signature Neutrophils % 77.0 % [facility] Neutr Abs (ANC) 5.26 1.70 - [facility] 6.10 [facility] x10(3)[facility] Lymphocytes % 13.3 % [facility] Lymphocytes Abs 0.9 0.9 - 3.2 [facility] x10(3)/[facility] LABORATORY Monocytes % 8.2 % [facility] Monocyte Abs 0.6 0.3 - 0.9 [facility] x10(3)/[facility] LABORATORY Eosinophils % 0.7 % [facility] Eosinophils Abs 0.0 0.0 - 0.4 [facility] x10(3)[facility] LABORATORY Basophils % 0.4 % [facility] Basophils Abs 0.0 0.0 - 0.1 [facility] x10(3)/[facility] LABORATORY Immature Gran % 0.40 % [facility] Comment: Immature granulocytes(IG's)percentage an d absolute count will include metamyelocytes, myelocytes, and promyelo cytes. Blood smears from CBCs yielding IG's will be scanned manually for concor dance. If this scan disagrees with the automated IG or if promyelocytes are not ed, a manual differential will be performed. Melisa Gran Abs 0.03 0.00 - 0.04 x10(3)/[facility] MAR Y [facility] LABORATORY Specimen Anatomical Collection Method Collection Time Receive d Time (Source) Location / / Volume Laterality Blood specimen 07/05/2017 4:55 PM 017 5:24 (specimen) EST PM EST Resulting Agency Comment Spec In Lab Daphne Shahid MD HEMATOLOGY ORDERABLES Performing Organization Address City/State/[place] [address] (ABNORMAL) Hemogram (07/05/2017 4:55 PM EST) Analysis Performed At Patho logist Time Signature WBC 6.8 4.0 - 9.5 [facility] x10(3)/[facility] LABORATORY RBC 4.67 4.58 - [place]YAN 5.54 [facility] x10(6)/[facility] LABORATORY Hemoglobin 14.0 13.7 - [facility] 16.5 gm/dL [facility] Hematocrit 41.0 40.5 - [facility] [place] 48.5 % [facility] MCV 87.8 82.9 - [facility] 93.1 [facility] LABORATORY MCH 30.0 27.5 - [place] 32.1 pg [facility] MCHC 34.1 32.0 - [place] 35.7 gm/dL [facility] Platelets 197 145 - 357 [facility] x[facility](3[facility] LABORATORY RDWSD 46.4 (H) 36.0 - [facility] R[facility] 45.0 [facility] LABORATORY RDWCV 14.5 (H) 11.4 - [facility] R[facility]AN 13.8 % [facility] MPV 9.7 7.6 - 12.9 [facility] nRBC % Auto 0.0 % [facility] nRBC Abs Auto 0.000 0.000 - [facility] RYAN 0.000 [facility] x10(3)/[facility] LABORATORY Specimen Anatomical Collection Method Collection Time Receive d Time (Source) Location / / Volume Laterality Blood specimen 07/05/2017 4:55 PM 017 5:24 (specimen) EST PM EST Resulting Agency Comment Spec In Lab Daphne Shahid MD HEMATOLOGY ORDERABLES Performing Organization Address City/State/[place] [address] (ABNORMAL) Cardiac Enzymes (LEB/CGP) (07/05/2017 4:55 PM EST) P athologist Signature Troponin-T 1.69 (H) 0.00 - [place] 0.00 ng/mL [facility] Comment: The 99th percentile for Troponin T is le ss than 0.01 ng/mL, any detectable cTnT concentration using this assay should be considered elevated. According to the third universal definit ion of myocardial infarction the following criteria with a clinical prese ntation consistent with acute myocardial ischemia meets the diagnosis for a myocardial infarction (VT). Detection of a rise and/or fall of [...] Definition of Myocardial Infarction. Journal of the [place] [employer] 2012;60:1581-98 CK, Total 191 0 - 200 unit/L [facility] Specimen Anatomical Collection Method Collection Time Receive d Time (Source) Location / / Volume Laterality Blood specimen 07/05/2017 4:55 PM 017 5:56 (specimen) EST PM EST Resulting Agency Comment Spec In Lab Daphne Shahid MD CHEMISTRY ORDERABLES Performing Organization Address City/State/ZIP Code Phon e Number [place] [id number] LAB[address] (ABNORMAL) pro-Brain Natriuretic Peptide (07/05/2017 4:55 PM EST) P athologist Signature ProBNP 1,598 (H) <=125 [facility] pg/mL [facility] Specimen Anatomical Collection Method Collection Time Receive d Time (Source) Location / / Volume Laterality Blood specimen 07/05/2017 4:55 PM 017 5:24 (specimen) EST PM EST Resulting Agency Comment Spec In Lab Daphne Shahid MD CHEMISTRY ORDERABLES Performing Organization Address City/State/ZIP Code Phon e Number [address] Magnesium (07/05/2017 4:55 PM EST) P athologist Signature Magnesium 0.78 0.69 - 1.07 [facility] mmol/L [facility] Specimen Anatomical Collection Method Collection Time Receive d Time (Source) Location / / Volume Laterality Blood specimen 07/05/2017 4:55 PM 017 5:24 (specimen) EST PM EST Resulting Agency Comment Spec In Lab Daphne Shahid MD CHEMISTRY ORDERABLES Performing Organization Address City/[facility]/[place] [address] (ABNORMAL) Basic Metabolic Panel (non-fasting) (07/05/2017 4:55 PM EST) P athologist Signature Glucose Lvl 230 (H) 65 - 199 [facility] mg/dL [facility] Comment: Diabetes: >=200 [...] or in patients with acute kidney failure. [email or web address] [email or web address]/MCnkf Specimen Anatomical Collection Method Collection Time Receive d Time (Source) Location / / Volume Laterality Blood specimen 07/05/2017 4:55 PM 017 5:24 (specimen) EST PM EST Resulting Agency Comment Spec In Lab Daphne Shahid MD CHEMISTRY ORDERABLES Performing Organization Address City/[facility] Code Phon e Number [address] (ABNORMAL) APTT (07/05/2017 4:55 PM EST) P athologist Signature PTT 41 (H) 25 - 35 sec [facility] Comment: The recommended therapeutic range for fu ll dose, unfractionated heparin at [facility] is 80 ? 114 seconds. [...] Shahid MD HEMATOLOGY ORDERABLES Performing Organization Address City/[facility] [place] [address] (ABNORMAL) POCT Glucose (07/05/2017 4:53 PM EST) P athologist Signature POC Glucose 208 (H) 65 - 199 [facility] mg/dL [facility] Comment: Supplemental ranges: [...] City/State/ZIP Code Phon e Number [place] [place] [id number] EKG 12 Lead (07/05/2017 4:32 PM EST) Component Value Ref Range Test Analysis Performed Pathologis t Method Time At Signature Ventricular rate 97 BPM MUSE SYSTEM Atrial Rate 97 BPM MUSE SYSTEM P-R Interval 148 ms MUSE SYSTEM QRS Duration 96 ms MUSE SYSTEM Q-T Interval 364 ms MUSE SYSTEM QTC Calculated 462 ms MUSE SYSTEM (Bezet) Calculated P Lamona 48 degrees MUSE SYSTEM Calculated R Lamona -33 degrees MUSE SYSTEM Calculated T Lamona 98 degrees MUSE SYSTEM INTERPRETATION Normal sinus [...] Coronary atherosclerosis of unspecified type of vessel, buckland or graft Cardiomyopathy, ischemic Other specified forms [...] post-op day 1 in the AM Give MA if unable to take PO, Routine Given [...] in dextrose 5% 250 mL EST infusion (OPTIONS ADVISOR) CONTINUOUS PRN, Starting on Wed07/05/17 at 1837, [...] post-op day 1 in the AM Give MA if unable to take PO, Routine atorvastatin [...] More Luther, VAMSI)1757 (Given - Provider: Yanet Valdoivnos, VAMSI) 0842 (Given - Provider: Em Jones, [...] post-op day 1 in the AM Give MA if unable to take PO
Routine Group [...]
Routine documented in this encounter Care Teams Safety And Skill Based Pay Manager Relationship Specialty Start Date End Date Lovely Vicente MD PCP - General 04/16/[address] [place] [address] [address] [place] [address] documented as of this encounter
--- OUTSIDE RECORDS SUMMARY | 2022-04-22 08:26 | XMS_ITS | Encounter Summary ---
:1945 Author Organization [facility] [place] [address] Care Team Providers Name Role Phone Angela Holliday APRN Primary Care Provider Encounter Details Date Type Department Care Team Description 04/30/2014 Orders Only Endocrinology at [facility] Albertina Palmer, Thyroid cancer [facility] Jorge Boyer MD (Primary Dx) [place] [address] [facility] [phone] CENTER ENDOCRINOLOGY DEPT [place], [place] [address] Social History Tobacco Use [...] MD [facility] er Dr [place], [place] [address] (Wo rk) 05/28/2022 Laboratory Appointment Lab 05/28/2022 Office Visit Cardiology Zulma Dolan MD [facility] [place] [address] Liz Poole PA [facility] [place] [address] 06/10/2022 Office Visit Dermatology Laura Scherer MD [facility] ER DR TEJA [address]DERMAT [place], [place] [address] (Wo rk) documented as of this encounter Visit Diagnoses Diagnosis Thyroid cancer - Primary Malignant neoplasm of thyroid gland documented in this encounter Care Teams Senior Process Control Tech Relationship Specialty Start Date End Date Angela Holliday APRN PCP - General 01/25/13 04/15/[address] [place] [address] documented as of this encounter
--- OUTSIDE RECORDS SUMMARY | 2022-04-22 08:26 | XMS_ITS | Encounter Summary ---
:1945 Author Organization [facility] [place] [address] Care Team Providers Name Role Phone Lovely Vicente MD Primary Care Provider Reason for Visit Reason Onset Date Comments Medication Refill 06/19/2016 Encounter Details Date Type Department Care Team Description 06/19/2016 Refill Endocrinology at [facility] Luz Stallings MD [facility] [place] [address] ENDOCRINOLOGY DEPT [phone] [place], [place] 0[address] (Wo rk) Social History Tobacco [...] [facility] er [address] [place] 0[address] (Wo rk) 05/28/2022 Laboratory Appointment Lab 05/28/2022 Office Visit Cardiology Zulma Dolan MD [facility] [place] [address] Liz Poole PA [facility] [place] [address] 06/10/2022 Office Visit Dermatology Laura Scherer MD [facility] [address] [place], [place] [address] (Wo rk) documented as of this encounter Visit Diagnoses Not on filedocumented in this encounter Care Teams Basket Grader Relationship Specialty Start Date End Date Lovely Vicente MD PCP - General 04/16/[address] [place], [place] [address] documented as of this encounter
--- OUTSIDE RECORDS SUMMARY | 2022-04-22 08:26 | XMS_ITS | Encounter Summary ---
:1945 Author Organization [facility] [place] [address] Care Team Providers Name Role Phone Lovely Vicente MD Primary Care Provider Reason for Visit Reason Comments Skin Check Encounter Details Date Type Department Care Team Description 04/16/2015 Follow-Up Dermatology at [facility] x of melanoma of skin; Abdelrahman HOOPER MD Multiple benign nevi [address] [place] [address] [facility] [place], [place] [address] (Wo rk) Social History Tobacco [...] Diagnostic, Drum (ACCU-CHEK COMPACT TEST) Strip by [facility].(Non- Drug; Combo Route) route 2 [...] Dolan MD [facility] [place], [place] 0[address] (Wo rk) 05/28/2022 Laboratory Appointment Lab 05/28/2022 Office Visit Cardiology Zulma Dolan MD [facility] [place] [address] Liz Poole PA [facility] [place] [address] 06/10/2022 Office Visit Dermatology Laura Scherer MD [facility] DR [address] [place], [place] 0[address] (Wo rk) documented as of this encounter Visit Diagnoses Diagnosis Hx of melanoma of skin Personal history of malignant melanoma o f skin Multiple benign nevi Benign neoplasm of skin, site unspecifie d documented in this encounter Care Teams Outreach Counselor Relationship Specialty Start Date End Date Lovely Vicente MD PCP - General 04/16/[address] [place] [address] [address] [place] [address] documented as of this encounter
--- OUTSIDE RECORDS SUMMARY | 2022-04-22 08:26 | XMS_ITS | Encounter Summary ---
:1945 Author Organization [facility] [place] [address] Care Team Providers Name Role Phone Lovely Vicente MD Primary Care Provider Reason for Visit Reason Onset Date Comments Referral 10/30/2015 Urgent referral for mac on SIMÓN CHAVIS Encounter Details Date Type Department Care Team Description 10/30/2015 Telephone Ophthalmology at [facility] C Jayson Ruiz Referral (Urgent [facility] MD Grabiel referral for mac on [facility] DR SIM[address]N CHAVIS) [place] [address] OPHTHALMOLOGY DEPT. [phone] [place], [place] 0[address] (Wo rk) Social [...] Cardiology Zulma Dolan MD [facility] [place], [place] [address] (Wo rk) 05/28/2022 Laboratory Appointment Lab 05/28/2022 Office Visit Cardiology Zulma Dolan MD [facility] [place] [address] Liz Poole PA [facility] [place] [address] 06/10/2022 Office Visit Dermatology Laura Scherer MD [facility] DR TE[address] [place], [place] [address] (Wo rk) documented as of this encounter Visit Diagnoses Not on filedocumented in this encounter Care Teams Lead Recreation Assistant Relationship Specialty Start Date End Date Lovely Vicente MD PCP - General 04/16/[address] [place], [place] [address] documented as of this encounter
--- OUTSIDE RECORDS SUMMARY | 2022-04-22 08:27 | XMS_ITS | Encounter Summary ---
:1945 Author Organization [facility] [place] [address] Care Team Providers Name Role Phone Angela Holliday APRN Primary Care Provider Reason for Visit Reason Comments Benign Prostatic Hypertrophy Encounter Details Date Type Department Care Team Description 11/28/2013 Follow-Up Urology at [facility] Blade Smith, Urinary retention (Primary D x); [facility] BPH (benign prostatic hyperplasia) [place] [address] UROLOGY DEPT [place], [place] 0[address] (Wo rk) Social History Tobacco [...] Dolan MD [facility] Dr [place], [place] [address] (Wo rk) 05/28/2022 Laboratory Appointment Lab 05/28/2022 Office Visit Cardiology Zulma Dolan MD [facility] [place] [address] Liz Poole PA [facility] [place] [address] 06/10/2022 Office Visit Dermatology Laura Scherer MD [facility] DR TEJA [address] [place], [place] 0[address] (Wo rk) documented as [...] Organization Address City/State/[place] [address] CERNER MILLENNIUM documented in this encounter Visit Diagnoses Diagnosis Urinary retention - Primary Retention of urine, unspecified BPH (benign prostatic hyperplasia) Unspecified hyperplasia of prostate with out urinary obstruction and other lower urinary tract symptoms (LUTS) documented in this encounter Care Teams Strategic Marketing Manager Relationship Specialty Start Date End Date Angela Holliday APRN PCP - General 01/25/13 04/15/[address] [place] [address] documented as of this encounter
--- OUTSIDE RECORDS SUMMARY | 2022-04-22 08:27 | XMS_ITS | Encounter Summary ---
:1945 Author Organization [facility] [place] [address] Care Team Providers Name Role Phone Angela Holliday APRN Primary Care Provider Encounter Details Date Type Department Care Team Description 03/28/2013 Surgery Main Operating Room Mesha Mcknight, THYROIDECTOMY, [facility] 15.04[facility] DR Siddiqu[place] [address] [place] [address] [phone] (Wo rk) Social History Tobacco Use Types [...] please call the General Surgery nurse at [phone], since this may mean that you need morecalcium. Follow-up Appointment: Will be scheduled with Dr. Mcknight in 6 weeks Date and time as well as any required labs will be mailed to you Please call [phone] to confirm date and time of your [...] by calcium supplementation. Phone number for questions: [phone] before 5 PM weekdays [phone] after 5 PM and on weekends/holidays Please follow up with Urology as per their recommendations for Bob removal AttachmentsThe following attachments cannot be sent through Care Everywhere. THYROIDECTOMY: WHAT TO EXPECT AT HOME (S[place]HALA)URINARY CATHETER CARE: AFTER YOUR VISIT ([place])documented in this encounter Medications at Time of [...] Willams MD - 03/28/2013 3:43 PM EDT [facility] Operative Note Patient Name: Gregory Fatima : [id number] MR#: [id number] Case Date: 03/28/2013 Surgeon: Surgeon(s) and Role: [...] Operative Note Patient Name: Gregory Fatima : [id number] MR#: [id number] Case Date: 03/28/2013 Surgeon: Surgeon(s) and Role: [...] [facility] er [address] [place] [address] (Wo rk) 05/28/2022 Laboratory Appointment Lab 05/28/2022 Office Visit Cardiology Zulma Dolan MD [facility] [place] [address] Liz Poole PA [facility] Cardiology [place] [address] 06/10/2022 Office Visit Dermatology Laura Scherer MD [facility] ER DR TEJA [address] [place] [address] (Wo rk) documented as of this encounter [...] Organization Address City/State/[place] [address] CERNER MILLENNIUM (ABNORMAL) POCT [...] City/[facility]/[place] [address] CERNER MILLENNIUM (ABNORMAL) POCT [...] City/[facility]/ZIP Code Phon e Number [address] CERNER MILLENNIUM (ABNORMAL) POCT [...] City/[facility]/ZIP Code Phon e Number [address] CERNER MILLENNIUM (ABNORMAL) POCT [...] City/[facility]/ZIP Code Phon e Number [address] CERNER MILLENNIUM (ABNORMAL) POCT [...] City/[facility]/ZIP Code Phon e Number [address] CERNER MILLENNIUM (ABNORMAL) POCT [...] City/[facility]/ZIP Code Phon e Number [address] CERNER MILLENNIUM (ABNORMAL) POCT [...] City/[facility]/ZIP Code Phon e Number [address] [facility] Specimen to Pathology (surgical or derm) [...] City/[facility]/ZIP Code Phon e Number [address] [facility] Pathology Addendum Report (03/28/2013 12:03 PM EDT) Component Value Ref Test Analysis Performed At [facility] gist Range Method Time Signature Addendum CERNER Report ? [facility] ? Provider: ?? MESHA MCKNIGHT Pt. Name: ?? GREGORY FATIMA ? Acc #: ?[id number] ?Pt. MRN: ?[id number] ? Col Date: ?? 03/28/2013 ?/Sex: ?1945,(68 [...] Organization Address City/State/[place] [address] [facility] Surgical Pathology Report (03/28/2013 12:03 PM EDT) Component Value Ref Test Analysis Performed At [facility] gist Range Method Time Signature Surgical [facility] Pathology ? [facility] Report ? Provider: ?? MESHA MCKNIGHT Pt. Name: ?? GREGORY FATIMA ? Acc #: ?[id number] ?Pt. MRN: ?[id number] ? Col Date: ?? 03/28/2013 ?/Sex: ?1945,(68 [...] ? JRP ? 03/31/13 Verified by: ? uRben Lindsey MD ? Pathologist ? (Electronic Si [...] areas of hemorrhage and ? calcifications. ? [facility] ? Provider: ?? MESHA MCKNIGHT Pt. Name: ?? GREGORY FATIMA ? Acc #: ?[id number] ?Pt. MRN: ?[id number] ? Col Date: ?? 03/28/2013 ?/Sex: ?1945,(68 years),Male ? Rec Date: ?? 03/28/2013 ?LOC: ?[facility] ? SURGICAL PATHOLOGY ? SECTIONS/PROCESSING: Clay Pigeon Setter sections are subm itted. (R6) ? B [...] Organization Address City/State/[place] [address] CERNER MILLENNIUM Frozen Section Report (03/28/2013 12:03 PM EDT) Component Value Ref Test Analysis Performed At [facility] gist Range Method Time Signature Frozen CERNER Section ? [facility] Report ? Provider: ?? MESHA MCKNIGHT Pt. Name: ?? GREGORY FATIMA ? Acc #: ?[id number] ?Pt. MRN: ?[id number] ? Col Date: ?? 03/28/2013 ?/Sex: ?1945,(68 [...] City/[facility]/[place] [address] CERNER MILLENNIUM POCT Glucose [...] City/[facility]/ZIP Code Phon e Number [address] CERNER MILLENNIUM Specimen to [...] City/[facility]/[place] [address] CERNER MILLENNIUM Antibody screen (03/28/2013 9:37 AM EDT) Analysis Performed At Patho logist Time Signature Ab Screen Negative CERNER Interp MILLENNIUM Expires at [id number] CERNER 865 on: MILLENNIUM Specimen Anatomical Collection Method Collection Time Receive d Time (Source) Location / / Volume Laterality Blood specimen 03/28/2013 9:37 AM 013 9:37 (specimen) EDT AM EDT Resulting Agency Comment Spec In Lab Mesha Mcknight MD BLOOD BANK ORDERABLES Performing Organization Address City/[facility]/[place] [address] [facility] ABO/Rh Typing (03/28/2013 9:37 AM EDT) athologist Signature ABORh Type O Pos [facility] Specimen Anatomical Collection Method Collection Time Receive d Time (Source) Location / / Volume Laterality Blood specimen 03/28/2013 9:37 AM 013 9:37 (specimen) EDT AM EDT Resulting Agency Comment Spec In Lab Mesha Mcknight MD BLOOD BANK ORDERABLES Performing Organization Address City/[facility]/ZIP Code Phon e Number [address] [facility] Differential, Automated (03/28/2013 9:34 AM EDT) [...] Organization Address City/State/ZIP Code Phon e Number [place] [id number] CERNER MILLENNIUM (ABNORMAL) Basic [...] intervals supplied above were not validated at [facility]. Results from pediatri c patients should [...] Organization Address City/State/[place] [address] CERNER MILLENNIUM (ABNORMAL) CBC [...] 9.3 9.0 - 12.0 CERNER fL [facility] Specimen Anatomical Collection Method Collection Time Receive d Time (Source) Location / / Volume Laterality Blood specimen 03/28/2013 9:34 AM 013 9:38 (specimen) EDT AM EDT Resulting Agency Comment Spec In Lab Mesha Mcknight MD HEMATOLOGY ORDERABLES Performing Organization Address City/[facility]/ZIP Code Phon e Number [address] [facility] POCT Glucose (03/28/2013 9:17 AM EDT) athologist Signature POC Glucose 108 60 - 199 CERNER mg/dL [facility] Comment: Supplemental ranges: <110 mg/dL before meals <200 mg/dL all other times of the day Specimen Anatomical Collection Method Collection Time Receive d Time (Source) Location / / Volume Laterality Blood specimen 03/28/2013 9:17 AM 013 9:17 (specimen) EDT AM EDT Mesha Mcknight MD POINT OF CARE TEST ORDERABLE S Performing Organization Address City/[facility]/ZIP Code Phon e Number [address] [facility] Specimen to Pathology (surgical or derm) (03/28/2013 8:55 AM EDT) Specimen Anatomical Collection Method Collection Time Receive d Time (Source) Location / / Volume Laterality AP Specimen 03/28/2013 8:55 AM 3 8:54 EDT AM EDT Narrative [facility] - 03/28/2013 8:55 AM E DT Specimen requisition ordered. ??Separate Pathology report to follow Mesha Mcknight MD PATHOLOGY/CYTOLOGY ORDERABLE S Performing Organization Address City/[facility]/ZIP Code Phon e Number [address] RAKESH WALKER documented in [...] mg (CANCELED) 1605 (Given - Provider: Angela Breaxu RN) 0900 (Given - Provider: Radha Yao [facility], VAMSI) 2.5 mg, Oral, DAILY, First [...] Ferrer RN)1003 (New Bag - Provider: Tessa Rcie)1120 (Anesthesia Volume Adjustment - Provider: Tessa Rice)1247 [...] override documented in this encounter Care Teams Sustainability Purchasing Agent Relationship Specialty Start Date End Date Angela Holliday APRN PCP - General 01/25/13 04/15/15 [address] [place] [address] documented as of this encounter
--- OUTSIDE RECORDS SUMMARY | 2022-04-22 08:27 | XMS_ITS | Encounter Summary ---
:1945 Author Organization [facility] [place] [address] Care Team Providers Name Role Phone Angela Holliday APRN Primary Care Provider Reason for Visit Reason Comments Skin Check Encounter Details Date Type Department Care Team Description 07/31/2013 Follow-Up Dermatology at [facility] eoplasm of unspecified nature of bone, soft tissue, and skin (Primary Dx); Abdelrahman OHOPER MD Seborrheic psoriasis- scalp and ingtergl uteal area; [address] [facility] Atypical [place] [address] [facility] [place], [place] [address] (Wo rk) Social History [...] encounter. Rigoberto Albarran MD Section of Dermatology [facility] documented in this encounter Plan of Treatment Upcoming Encounters Date Type Specialty Care Team Description 05/28/2022 Appointment Cardiology Zulma Dolan MD [facility] [address] [place] [address] (Wo lissa) 05/28/2022 Laboratory Appointment Lab 05/28/2022 Office Visit Cardiology Zulma Dolan [place] [address] Liz Poole PA [facility] [place] [address] 06/10/2022 Office Visit Dermatology Laura Scherer MD [facility] DR [address]DERMAT [place], [place] 0[address] (Wo rk) Scheduled Orders [...] Analysis Performed At [facility] gist Range Method Time Signature Surgical CERNER Pathology ? [facility] Report ? Provider: ?? RIGOBERTO ALBARRAN [...] negative controls. ??These ? IHC studies provide [facility] pathologist with adjunctive diagnostic information. ? [...] 0.9 x 0.8 x 0.2 cm. ? [facility] ? Provider: ?? DEION III, RIGOBERTO Pt. Name: ?? GREGORY HOANG ?A ? Acc #: ?[id number] ? Pt. ? Col Date: ?? 07/31/2013 [...] [facility]/ZIP Code Phon e Number [address] CERNER MILLENNIUM Specimen to [...] [facility]/[place] [address] CERNER MILLENNIUM documented in this encounter Visit Diagnoses Diagnosis Neoplasm of unspecified nature of bone, soft tissue, and skin - Primary Seborrheic psoriasis- scalp and ingtergl uteal area Other psoriasis Atypical nevus of abdominal wall Benign neoplasm of skin of trunk, except scrotum documented in this encounter Care Teams It Risk And Assurance Senior Manager Relationship Specialty Start Date End Date Angela Holliday APRN PCP - General 01/25/13 04/15/[address] [place] [address] documented as of this encounter
--- OUTSIDE RECORDS SUMMARY | 2022-04-22 08:27 | XMS_ITS | Encounter Summary ---
:1945 Author Organization [facility] [place] [address] Care Team Providers Name Role Phone Angela Holliday APRN Primary Care Provider Reason for Referral Surgical (Routine) - Closed Specialty Diagnoses / Procedures Referred By Contact Refer red To Contact General Surgery Diagnoses Elijah Villagomez MD Colacchio, Thomas A, MD [address] [place] [address] [place] [address] [place] [address] Phone: Fax: Referral ID Status Reason Start Date Expiration Date Visits V isits Requested Authorized [id number] Closed Specialty 01/25/2013 07/24/2013 1 1 Service Requested Reason for Visit Reason Comments Thyroid Problem Encounter Details Date Type Department Care Team Description 01/25/2013 Office Visit Endocrinology at [facility] Elijah Fuentes Goiter (Primary Dx) [facility] [address] [place] [address] [place] [address] [phone] Social History Tobacco Use Types Packs/Day Years [...] History 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 [...] the thyroid gland were obtained using a [employer]axx and an HFL38/13-6 broadband linear array transducer. [...] Description 05/28/2022 Appointment Cardiology Zulma Dloan MD [facility] [place], [place] [address] (Wo rk) 05/28/2022 Laboratory Appointment Lab 05/28/2022 Office Visit Cardiology Zulma Dolan [place] [address] Liz Poole PA [facility] [place] [address] 06/10/2022 Office Visit Dermatology Laura Scherer MD [facility] [address] [place], [place] [address] (Wo rk) Scheduled Referrals Name [...] Organization Address City/State/[place] [address] CERNER MILLENNIUM documented in this encounter Visit Diagnoses Diagnosis Goiter - Primary Goiter, unspecified documented in this encounter Care Teams Rail Switchman Relationship Specialty Start Date End Date Angela Holliday APRN PCP - General 01/25/13 04/15/[address] [place] [address] documented as of this encounter
--- OUTSIDE RECORDS SUMMARY | 2022-04-22 08:27 | XMS_ITS | Encounter Summary ---
:1945 Author Organization [facility] [place] [address] Care Team Providers Name Role Phone MiyaAngela STACIE Primary Care Provider Reason for Visit Reason Comments Post Op voiding trial Encounter Details Date Type Department Care Team Description 04/05/2013 Office Visit Urology at [facility] Darryl Egan, UTI ([facility] MD tract infection) [facility] (Primary Dx) [place] [address] UROLOGY DEPT [phone] [place], [place] [address] Social History Tobacco Use Types [...] Appointment Cardiology Zulma Dolan MD [facility] [place], [place] [address] (Wo rk) 05/28/2022 Laboratory Appointment Lab 05/28/2022 Office Visit Cardiology Zulma Dolan MD [facility] [address] [facility] [place] [address] 06/10/2022 Office Visit Dermatology Laura Scherer MD [facility] DR TEJA GR-DERMAT OLOGY [place], [place] [address] (Wo rk) documented as of this encounter Procedures Procedure Name Priority Date/Time Associated Diagnosis Comme nts URINE CULTURE Routine 04/05/2013 11:48 AM UTI (lower urinary R esults for this EDT tract infection) procedure a re in the results section . documented in this encounter Results Urine culture Clean Catch Urine (04/05/2013 11:48 AM EDT) Component Value Ref Test Analysis Performed At [facility] Method Time Signature Urine Culture CERNER ? Patient Name: GREGORY HOANG ? Ordered By: DARRYL EGAN [facility] ? MR#: [id number] ?LOC: ??5B ? /Sex: ??1945 (68 years), [...] S ? Patient: GREGORY HOANG ? MR#: [id number] ? FOOTNOTES ? (1) ? This organism [...] Address City/State/[place] [address] RAKESH WALKER documented in this encounter Visit Diagnoses Diagnosis UTI (lower urinary tract infection) - Pr imary Urinary tract infection, site not specif ied documented in this encounter Care Teams Business Process Lead Relationship Specialty Start Date End Date Angela Holliday APRN PCP - General 01/25/13 04/15/[address] [place] [address] documented as of this encounter
--- OUTSIDE RECORDS SUMMARY | 2022-04-22 08:27 | XMS_ITS | Encounter Summary ---
:1945 Author Organization [facility] [place] [address] Care Team Providers Name Role Phone Adi Costello MD Primary Care Provider Reason for Visit Reason Comments Annual Exam ckeck his groin and melanoma follow-up Encounter Details Date Type Department Care Team Description 11/21/2010 Follow-Up Dermatology Arik Tipton Melanoma (Primary Dx) [facility] MD [place] [phone] DERMATOLOGY DEPT . 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 His only complaints are [...] Arik Tipton MD Section of Dermatology [facility] documented in this encounter Plan of Treatment Upcoming Encounters Date Type Specialty Care Team Description 05/28/2022 Appointment Cardiology Zulma Dolan MD [facility] [place], [place] [address] (Wo rk) 05/28/2022 Laboratory Appointment Lab 05/28/2022 Office Visit Cardiology Zulma Dolan MD [facility] [place] [address] Liz Poole PA [facility] [place] [address] 06/10/2022 Office Visit Dermatology Laura Scherer MD [facility] DR TEJA GR-DERMAT [place]LOG[place], [place] [address] (Wo rk) documented as of this encounter Visit Diagnoses Diagnosis Melanoma - Primary Melanoma of skin, site unspecified documented in this encounter Care Teams Branch Operation Evaluation Manager Relationship Specialty Start Date End Date Adi Costello MD PCP - General 06/17/10 09/21/11 [address] [place] [address] documented as of this encounter
--- OUTSIDE RECORDS SUMMARY | 2022-04-22 08:27 | XMS_ITS | Encounter Summary ---
:1945 Author Organization [facility] [place] [address] Care Team Providers Name Role Phone MiyaAngela STACIE Primary Care Provider Reason for Visit Reason Comments Urinary Retention Encounter Details Date Type Department Care Team Description 05/16/2013 Follow-Up [facility]rology at [facility] Blade Smith, Retention of urine [facility] (Primary Dx) [place] [address] UROLOGY DEPT [place] [address] (Wo rk) Social History Tobacco Use Types [...] Dolan MD [facility] Dr [place], [place] [address] (Wo rk) 05/28/2022 Laboratory Appointment Lab 05/28/2022 Office Visit Cardiology Zulma Dolan [place] [facility] [place] [address] Liz Poole PA [facility] [place] [address] 06/10/2022 Office Visit Dermatology Laura Scherer MD [facility] DR TEJA GR-DERMAT [place], [place] [address] (Wo rk) documented as of this encounter Visit Diagnoses Diagnosis Retention of urine - Primary Retention of urine, unspecified documented in this encounter Care Teams Cabinet Worker Relationship Specialty Start Date End Date Angela Holliday APRN PCP - General 01/25/13 04/15/[address] [place] [address] documented as of this encounter
--- OUTSIDE RECORDS SUMMARY | 2022-04-22 08:27 | XMS_ITS | Encounter Summary ---
:1945 Author Organization [facility] [place] [address] Care Team Providers Name Role Phone Angela Holliday APRN Primary Care Provider Encounter Details Date Type Department Care Team Description 03/30/2013 Telephone General Surgery at [facility] Cliff Nevarez, [place] [address] Social History Tobacco Use Types Packs/Day [...] Zulma Dolan MD [facility] er [place], [place] [address] (Wo rk) 05/28/2022 Laboratory Appointment Lab 05/28/2022 Office Visit Cardiology Zulma Dolan MD [facility] [place] [address] Liz Poole PA [facility] [place] [address] 06/10/2022 Office Visit Dermatology Laura Scherer MD [facility] DR TEJA GR-DERMAT [place], [place] [address] (Wo rk) documented as of this encounter Visit Diagnoses Not on filedocumented in this encounter Care Teams Environmental Services Attendant Relationship Specialty Start Date End Date Angela Holliday APRN PCP - General 01/25/13 04/15/[address] [place] [address] documented as of this encounter
--- OUTSIDE RECORDS SUMMARY | 2022-04-22 08:27 | XMS_ITS | Encounter Summary ---
:1945 Author Organization [facility] [place] [address] Care Team Providers Name Role Phone MiyaLokeshAngela STACIE Primary Care Provider Encounter Details Date Type Department Care Team Description 01/16/2014 Hospital Encounter Gastroenterology at [facility] Nohemi Swann, [facility] [place] [address] [facility] [phone] [facility] DE[facility]. [place], [place] [address] Social History Tobacco Use Types [...] you need to be checked. [facility] [phone] 8a-5p Same Day Endo [phone] 7a-8p Otherwise contact [phone] and ask to speak to the sow manager online health and fitness coach Follow up care is a shelton part [...] Swann MD - 01/16/2014 9:49 AM EDT [facility] Operative Note Patient Name: Gregory Fatima : [id number] MR#: [id number] Case Date: 01/16/2014 Surgeon: Surgeon(s) and Role: * Nohemi Swann MD - Primary Preoperative diagnosis: 5 yr surv. Full procedure note is documented under the Procedure section of eDH. documented in this encounter Plan of Treatment Upcoming Encounters Date Type Specialty Care Team Description 05/28/2022 Appointment Cardiology Zulma Dolan MD [facility] [place], [place] [address] (Wo rk) 05/28/2022 Laboratory Appointment Lab 05/28/2022 Office Visit Cardiology Zulma Dolan MD [facility] [place] [address] [facility] [place] [address] 06/10/2022 Office Visit Dermatology Laura Scherer MD [facility] DR TEJA GR-DERMAT [place], [place] [address] (Wo rk) documented as of this encounter [...] Surgical Pathology Report (01/16/2014 9:53 AM EDT) [facility] Method Time Signature Surgical CERNER Pathology ? [facility] Report ? Provider: ?? NOHEMI SWANN ?Pt. Name: ?? MALICKEliseo RT, GREGORY E ? Acc #: ?[id number] ?Pt. MRN: ?[id number] ? Col Date: ?? 4 ? /Sex: [...] City/State/ZIP Code Phon e Number [place] [phone] RAKESH WALKER Specimen to [...] Organization Address City/State/[place] [address] [facility] Specimen to Pathology (surgical or derm) (01/16/2014 9:53 AM EDT) Specimen Anatomical Collection Method Collection Time Receive d Time (Source) Location / / Volume Laterality AP Specimen 01/16/2014 9:53 AM 201 4 9:53 EDT AM EDT Narrative CERNER MILLENNIUM - 01/16/2014 9:53 AM E DT Specimen requisition ordered. ??Separate Pathology report to follow Nohemi Swann MD PATHOLOGY/CYTOLOGY ORDERABLE S Performing Organization Address City/[facility]/ZIP [place] [address] CERNER MILLENNIUM COLONOSCOPY (01/16/2014 7:25 AM EDT) [facility] gist Method Time Signature COLONOSCOPY [facility] Endoscopy Patient Name: Gregory Fatima ? Procedure Date: 01/16/2014 7:25 AM ? N: [id number] ? Date of : 1945 ? Age: 68 ? Order #: [id number] ? Procedure: ? Colonoscopy Indications: ? High risk colon cancer surveillance : ? 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 dm on metformin with bs ~ 110 this ? am,s/p melanoma years ago, os a, ? goiter s/p surgery, [facility] Providers: ? Nohemi Swann MD, Blanca xiong, [...] Return to primary care phys ician. ? oNhemi Swann MD 01/16/2014 10:04 AM This report has been signed electronically. Number of Addenda: 0 Note Initiated On: 01/16/2014 7:25 AM Specimen (Source) Anatomical Collection Method Collection Time Re ceived Time Location / / Volume Laterality 01/16/2014 7:25 AM EDT Angela Sotelo BARREL LOADER GENERAL SURGICAL ORDERABLES Performing Organization Address City/State/ZIP [...] Routine documented in this encounter Care Teams Digester Cook Relationship Specialty Start Date End Date Angela Sotelo APRN PCP - General 01/25/13 04/15/[address] [place] [address] documented as of this encounter
--- OUTSIDE RECORDS SUMMARY | 2022-04-22 08:27 | XMS_ITS | Encounter Summary ---
:1945 Author Organization [facility] [place] [address] Care Team Providers Name Role Phone Angela Holliday APRN Primary Care Provider Reason for Visit Reason Comments Other Encounter Details Date Type Department Care Team Description 08/01/2013 Telephone Dermatology at [facility] Rigoberto Garcia III, [address] [place] [address] [facility] [phone] TEJA MARIE-DERMAT [place], [place] [address] (Wo rk) Social History Tobacco [...] them. Component Value Surgical Pathology Final Report [facility] Provider: RIGOBERTO GARCIA III Pt. Name: DON HOANG Acc #: [id number] Pt. 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 CR-0 08/01/13 BJM 08/01/13 Verified by: Ian STRANGE, PhD, [facility] Dermatopathologist (Electronic Signature) The attending pathologist [...] Zulma Dolan MD [facility] [place], [place] [address] (Wo lissa) 05/28/2022 Laboratory Appointment Lab 05/28/2022 Office Visit Cardiology Zulma Dolan MD [facility] [place] [address] Liz Poole PA [facility] [place] [address] 06/10/2022 Office Visit Dermatology Laura Scherer MD [facility] DR TEJA MARIE-DERMAT [place]LOG[place], [place] [address] (Wo rk) documented as of this encounter Visit Diagnoses Not on filedocumented in this encounter Care Teams Inspecting Machine Adjuster Relationship Specialty Start Date End Date Angela Holliday APRN PCP - General 01/25/13 04/15/[address] [place] [address] documented as of this encounter
--- OUTSIDE RECORDS SUMMARY | 2022-04-22 08:27 | XMS_ITS | Encounter Summary ---
:1945 Author Organization [place] [address] Care Team Providers Name Role Phone Angela Sotelo APRN Primary Care Provider Encounter Details Date Type Department Care Team Description 01/16/2014 Surgery Gastroenterology at [facility] Nohemi Jaimes, COLONOSCOPY, [facility] Jorge mcnamara MD POLYPECTOMY, [place] [address] [facility] ([facility] [phone] DR Cintron) GASTROENTEROLOGY DEPT. [place], [place] [address] Social History Tobacco Use Types [...] you need to be checked. Wednesday-Wednesday Clinic [phone] 8a-5p Same Day Endo [phone] 7a-8p Otherwise contact [phone] and ask to speak to the trimmer and reinforcer color consultant Follow up care is a shelton [...] AM EDT [facility] Operative Note Patient Name: Gregory Fatima : [id number] MR#: [id number] Case Date: 01/16/2014 Surgeon: Surgeon(s) and Role: * Nohemi Jaimes MD - Primary Preoperative diagnosis: 5 yr surv. Full procedure note is documented under the Procedure section of eDH. documented in this encounter Plan of Treatment Upcoming Encounters Date Type Specialty Care Team Description 05/28/2022 Appointment Cardiology Zulma Dolan MD [facility] [address] [place] [address] (Wo rk) 05/28/2022 Laboratory Appointment Lab 05/28/2022 Office Visit Cardiology Zulma Dolan MD [facility] [place] [address] Liz Poole PA [facility] [place] [address] 06/10/2022 Office Visit Dermatology Laura Scherer MD [facility] DR TEJA [place] [id number] (Wo rk) documented as of this encounter [...] Surgical Pathology Report (01/16/2014 9:53 AM EDT) [facility] Method Time Signature Surgical CERNER Pathology ? [facility] Report ? Provider: ?? SHREE, NOHEMI Gonzalez ?Pt. Name: ?? MALICKA RT, GREGORY E ? Acc #: ?[id number] ?Pt. MRN: ?[id number] ? Col Date: ?? 4 ? /Sex: [...] Organization Address City/State/ZIP Code Phon e Number [place] [phone] [address] RAKESH WALKER Specimen to [...] MD PATHOLOGY/CYTOLOGY ORDERABLE S Performing Organization Address City/[facility]/[place] [address] CERNER MILLENNIUM Specimen to [...] ORDERABLE S Performing Organization Address [facility] [place] [address] CERNER MILLENNIUM COLONOSCOPY (01/16/2014 7:25 AM EDT) [facility] gist Method Time Signature COLONOSCOPY [facility] [place] Endoscopy Patient Name: Gregory Fatima ? Procedure Date: 01/16/2014 7:25 AM ? N: [id number] ? Date of : 1945 ? Age: 68 ? Order #: [id number] ? Procedure: ? Colonoscopy Indications: ? High [...] Laterality 01/16/2014 7:25 AM EDT Angela Sotelo PRESCHOOL DIRECTOR GENERAL SURGICAL ORDERABLES Performing Organization Address [...] documented in this encounter Care Teams Tower Control Operator Relationship Specialty Start Date End Date Angela Sotelo APRN PCP - General 01/25/13 04/15/[address] [place] [address] documented as of this encounter
--- OUTSIDE RECORDS SUMMARY | 2022-04-22 08:27 | XMS_ITS | Encounter Summary ---
:1945 Author Organization [place] [address] Care Team Providers Name Role Phone NeilSom conner STACIE Primary Care Provider Reason for Visit Reason Comments Establish Care OBST GOITER Encounter Details Date Type Department Care Team Description 01/25/2013 Office Visit General Surgery at [facility] er colloid, toxic, [facility] MD Eliseo nodular (Primary Dx) [facility] [place], [place] GENERAL SURGERY [id number] [place], [place] [address] [phone] Social History Tobacco Use Types Packs/Day Years [...] the thyroid gland were obtained using a SonoSiViClone MicroMaxx and an HFL38/13-6 broadband linear array [...] on physical exam. ROS: No H/O asthma, IL, stroke, pulmonary embolus or phlebitis. Comprehensive review [...] agrees to proceed. Will sign in through [facility]. Consent is signed. Send copy to Dr. SOM HOLLIDAY APRN and Elijah Elias MD. documented in this encounter Plan of Treatment Upcoming Encounters Date Type Specialty Care Team Description 05/28/2022 Appointment Cardiology Zulma Dolan MD [facility] [address] [place] [address] (Wo rk) 05/28/2022 Laboratory Appointment Lab 05/28/2022 Office Visit Cardiology Zulma Dolan MD [facility] [place] [address] Liz Poole PA [facility] [place] [address] 06/10/2022 Office Visit Dermatology Laura Scherer MD [facility] DR TEJA GR-DERMAT [place]LOG[place], [place] [address] (Wo rk) documented as of [...] 406 ms MUSE SYSTEM (Bezet) Calculated P [place] 52 degrees MUSE SYSTEM Calculated R [place] 0 degrees MUSE SYSTEM Calculated T [place] 40 degrees MUSE SYSTEM INTERPRETATION Normal sinus [...] storm documented in this encounter Care Teams Interior Paneler Relationship Specialty Start Date End Date Som Holliday APRN PCP - General 01/25/13 04/15/[address] [place] [address] documented as of this encounter
--- OUTSIDE RECORDS SUMMARY | 2022-04-22 08:27 | XMS_ITS | Encounter Summary ---
:1945 Author Organization [facility] [place] [address] Care Team Providers Name Role Phone Miya Angela STACIE Primary Care Provider Encounter Details Date Type Department Care Team Description 04/24/2013 Telephone Urology at [facility] Zhen Bowman MD [facility] [place] [address] UROLOGY DEPT [phone] [place], [place] [address] (Wo rk) Social History Tobacco [...] Zulma Dolan MD [facility] [place], [place] [address] (Wo rk) 05/28/2022 Laboratory Appointment Lab 05/28/2022 Office Visit Cardiology Zulma Dolan MD [facility] [place] [address] Liz Poole PA [facility] [place] [address] 06/10/2022 Office Visit Dermatology Laura Scherer MD [facility] DR TEJA GR-DERMAT [place], [place] [address] (Wo rk) documented as of this encounter Visit Diagnoses Not on filedocumented in this encounter Care Teams Medical Insurance Coding Specialist Relationship Specialty Start Date End Date Angela Holliday APRN PCP - General 01/25/13 04/15/[address] [place] [address] documented as of this encounter
--- OUTSIDE RECORDS SUMMARY | 2022-04-22 08:27 | XMS_ITS | Encounter Summary ---
:1945 Author Organization [facility] [place] [address] Care Team Providers Name Role Phone MiyaAngela STACIE Primary Care Provider Encounter Details Date Type Department Care Team Description 11/27/2013 Orders Only Urology at [facility] Blade Smith, Urinary retention [facility] (Primary Dx) [place] [address] UROLOGY DEPT [place], [place] [address] Social History Tobacco Use Types [...] MD [facility] er [place], [place] [address] (Wo rk) 05/28/2022 Laboratory Appointment Lab 05/28/2022 Office Visit Cardiology Zulma Dolan MD [facility] [place] [address] Liz Poole PA [facility] [place] [address] 06/10/2022 Office Visit Dermatology Laura Scherer MD [facility] ER DR TEJA GR-DERMAT OLOGY [place], [place] [address] (Wo rk) documented as of [...] Organization Address City/State/[place] [address] CERNER MILLENNIUM documented in this encounter Visit Diagnoses Diagnosis Urinary retention - Primary Retention of urine, unspecified documented in this encounter Care Teams Pattern Vault Clerk Relationship Specialty Start Date End Date Angela Holliday APRN PCP - General 01/25/13 04/15/[address] [place] [address] documented as of this encounter
--- OUTSIDE RECORDS SUMMARY | 2022-04-22 08:27 | XMS_ITS | Encounter Summary ---
:1945 Author Organization [facility] [place] [address] Care Team Providers Name Role Phone MiyaLokeshAngela STACIE Primary Care Provider Encounter Details Date Type Department Care Team Description 04/04/2013 Orders Only General Surgery at [facility] thyroid [facility] MD Eliseo carcinoma (Primary Dx) [facility] [place] [address] GENERAL SURGERY [phone] [place], [place] [address] Social History Tobacco Use Types [...] MD [facility] [place], [place] [address] (Wo rk) 05/28/2022 Laboratory Appointment Lab 05/28/2022 Office Visit Cardiology Zulma Dolan MD [facility] [place] [address] Liz Poole PA [facility] [place] [address] 06/10/2022 Office Visit Dermatology Laura Scherer MD [facility] DR TEJA GR-DERMAT [place], [place] [address] (Wo rk) documented as of this encounter Visit Diagnoses Diagnosis Papillary thyroid carcinoma - Primary Malignant neoplasm of thyroid gland documented in this encounter Care Teams Retail Cosmetics Sales Counter Manager Relationship Specialty Start Date End Date Angela Holliday APRN PCP - General 01/25/13 04/15/[address] [place] [address] documented as of this encounter
--- OUTSIDE RECORDS SUMMARY | 2022-04-22 08:27 | XMS_ITS | Encounter Summary ---
:1945 Author Organization [facility] [place] [address] Care Team Providers Name Role Phone Angela Holliday APRN Primary Care Provider Encounter Details Date Type Department Care Team Description 03/15/2013 Telephone General Surgery at [facility] [place], [place] [address] Social History Tobacco Use Types Packs/Day [...] Zulma Dolan MD [facility] [place], [place] [address] (Wo rk) 05/28/2022 Laboratory Appointment Lab 05/28/2022 Office Visit Cardiology Zulma Dolan MD [facility] [place] [address] Liz Poole PA [facility] [place] [address] 06/10/2022 Office Visit Dermatology Laura Scherer MD [facility] DR TEJA GR-DERMAT [place], [place] [address] (Wo rk) documented as of this encounter Visit Diagnoses Not on filedocumented in this encounter Care Teams Housing Installer Relationship Specialty Start Date End Date Angela Holliday APRN PCP - General 01/25/13 04/15/[address] [place] [address] documented as of this encounter
--- OUTSIDE RECORDS SUMMARY | 2022-04-22 08:27 | XMS_ITS | Encounter Summary ---
:1945 [place] [address] Care Team Providers Name Role Phone Holley Hollidayica STACIE Primary Care Provider Encounter Details Date Type Department Care Team Description 03/28/2013 - [facility] (Primary 03/29/2013 Barbara Gomes MD Dx) [facility] [address] [place] [address] [phone] Social History Tobacco Use Types Packs/Day Years [...] please call the General Surgery nurse at [phone], since this may mean that you need morecalcium. Follow-up Appointment: Will be scheduled with Dr. Mcknight in 6 weeks Date and time as well as any required labs will be mailed to you Please call [phone] to confirm date and time of your [...] by calcium supplementation. Phone number for questions: [phone] before 5 PM weekdays [phone] after 5 PM and on weekends/holidays Please follow up with Urology as per their recommendations for Bob removal AttachmentsThe following attachments cannot be sent through Care Everywhere. THYROIDECTOMY: WHAT TO EXPECT AT HOME (COMORAN)URINARY CATHETER CARE: AFTER YOUR VISIT (COMORAN)documented in this encounter Medications at Time of [...] a 68 y.o. male presents to [facility] today for total thyroidectomy. See full [...] Willams MD - 03/28/2013 3:43 PM EDT [facility] Operative Note Patient Name: Gregory Fatima : [id number] MR#: [id number] Case Date: 03/28/2013 Surgeon: Surgeon(s) and Role: [...] was extubated and taken to the [facility] in stable condition. At the end [...] Operative Note Patient Name: Gregory Fatima : [id number] MR#: [id number] Case Date: 03/28/2013 Surgeon: Surgeon(s) and Role: [...] [facility] er [address] [place] [address] (Wo rk) 05/28/2022 Laboratory Appointment Lab 05/28/2022 Office Visit Cardiology Zulma Dolan MD [facility] [place] [address] Liz Poole PA [facility] [place] [address] 06/10/2022 Office Visit Dermatology Laura Scherer MD [facility] ER DR TEJA GR-DERMAT [place] [address] (Wo rk) documented as of this encounter [...] City/State/[place] [address] CERNER MILLENNIUM (ABNORMAL) POCT [...] Address City/[facility]/[place] [address] CERNER MILLENNIUM (ABNORMAL) POCT [...] Address City/[facility]/ZIP Code Phon e Number [address] CERNER MILLENNIUM (ABNORMAL) POCT [...] Address City/[facility]/ZIP Code Phon e Number [address] CERNER MILLENNIUM (ABNORMAL) POCT [...] Address City/[facility]/ZIP Code Phon e Number [address] CERNER MILLENNIUM (ABNORMAL) POCT [...] Address City/[facility]/ZIP Code Phon e Number [address] CERNER MILLENNIUM (ABNORMAL) POCT [...] Address City/[facility]/ZIP Code Phon e Number [address] CERNER MILLENNIUM (ABNORMAL) POCT [...] Address City/[facility]/ZIP Code Phon e Number [address] [facility] Specimen to Pathology (surgical or derm) [...] Address City/[facility]/ZIP Code Phon e Number [address] [facility] Pathology Addendum Report (03/28/2013 12:03 PM EDT) Component Value Ref Test Analysis Performed At [facility] gist Range Method Time Signature Addendum CERNER Report ? [facility] ? Provider: ?? MESHA MCKNIGHT Pt. Name: ?? GREGORY FATIMA ? Acc #: ?[id number] ?Pt. MRN: ?[id number] ? Col Date: ?? 03/28/2013 ?/Sex: ?1945,(68 [...] Organization Address City/State/[place] [address] [facility] Surgical Pathology Report (03/28/2013 12:03 PM EDT) Component Value Ref Test Analysis Performed At [facility] gist Range Method Time Signature Surgical [facility] Pathology ? [facility] Report ? Provider: ?? MESHA MCKNIGHT Pt. Name: ?? GREGORY FATIMA ? Acc #: ?[id number] ?Pt. MRN: ?[id number] ? Col Date: ?? 03/28/2013 ?/Sex: ?1945,(68 [...] areas of hemorrhage and ? calcifications. ? [facility] ? Provider: ?? MESHA MCKNIGHT Pt. Name: ?? GREGORY FATIMA ? Acc #: ?[id number] ?Pt. MRN: ?[id number] ? Col Date: ?? 03/28/2013 ?/Sex: ?1945,(68 years),Male ? Rec Date: ?? 03/28/2013 ?LOC: ?[facility] ? SURGICAL PATHOLOGY ? SECTIONS/PROCESSING: Hot Tar Roofer sections are subm itted. (R6) ? B [...] Organization Address City/State/[place] [address] CERNER MILLENNIUM Frozen Section Report (03/28/2013 12:03 PM EDT) Component Value Ref Test Analysis Performed At [facility] gist Range Method Time Signature Frozen CERNER Section ? [facility] Report ? Provider: ?? MESHA MCKNIGHT Pt. Name: ?? GREGORY FATIMA ? Acc #: ?[id number] ?Pt. MRN: ?[id number] ? Col Date: ?? 03/28/2013 ?/Sex: ?1945,(68 [...] Address City/[facility]/[place] [address] CERNER MILLENNIUM POCT Glucose [...] Address City/[facility]/ZIP Code Phon e Number [address] CERNER MILLENNIUM Specimen to [...] Address City/[facility]/[place] [address] CERNER MILLENNIUM Antibody screen (03/28/2013 9:37 AM EDT) Analysis Performed At Patho logist Time Signature Ab Screen Negative CERNER Interp MILLENNIUM Expires at [id number] CERNER 768 on: MILLENNIUM Specimen Anatomical Collection Method Collection Time Receive d Time (Source) Location / / Volume Laterality Blood specimen 03/28/2013 9:37 AM 013 9:37 (specimen) EDT AM EDT Resulting Agency Comment Spec In Lab Mesha Mcknight MD BLOOD BANK ORDERABLES Performing Organization Address City/[facility]/[place] [address] [facility] GRISELDA[facility]NIUM ABO/Rh Typing (03/28/2013 9:37 AM EDT) athologist Signature ABORh Type O Pos [facility] Specimen Anatomical Collection Method Collection Time Receive d Time (Source) Location / / Volume Laterality Blood specimen 03/28/2013 9:37 AM 013 9:37 (specimen) EDT AM EDT Resulting Agency Comment Spec In Lab Mesha Mcknight MD BLOOD BANK ORDERABLES Performing Organization Address City/[facility]/ZIP Code Phon e Number [address] [facility] Differential, Automated (03/28/2013 9:34 [...] Organization Address City/State/ZIP Code Phon e Number [place] [id number]OSPITAL [address] CERNER MILLENNIUM (ABNORMAL) Basic [...] intervals supplied above were not validated at [facility]. Results from pediatri c patients should be [...] Organization Address City/State/[place] [address] CERNER MILLENNIUM (ABNORMAL) CBC [...] Mcknight MD HEMATOLOGY ORDERABLES Performing Organization Address City/[facility]/ZIP Code Phon e Number [address] [facility] POCT Glucose (03/28/2013 9:17 AM EDT) athologist Signature POC Glucose 108 60 - 199 CERNER mg/dL [facility] Comment: Supplemental ranges: <110 mg/dL before meals <200 mg/dL all other times of the day Specimen Anatomical Collection Method Collection Time Receive d Time (Source) Location / / Volume Laterality Blood specimen 03/28/2013 9:17 AM 013 9:17 (specimen) EDT AM EDT Mesha Mcknight MD POINT OF CARE TEST ORDERABLE S Performing Organization Address City/[facility]/ZIP Code Phon e Number [address] [facility] Specimen to Pathology (surgical or derm) (03/28/2013 8:55 AM EDT) Specimen Anatomical Collection Method Collection Time Receive d Time (Source) Location / / Volume Laterality AP Specimen 03/28/2013 8:55 AM 3 8:54 EDT AM EDT Narrative [facility] GRISELDA[facility] - 03/28/2013 8:55 AM E DT Specimen requisition ordered. ??Separate Pathology report to follow Mesha Mcknight MD PATHOLOGY/CYTOLOGY ORDERABLE S Performing Organization Address City/[facility]/ZIP Code Phon e Number [address] [facility] documented in this encounter Visit Diagnoses [...] override documented in this encounter Care Teams It Support Consultant Relationship Specialty Start Date End Date Angela Holliday APRN PCP - General 01/25/13 04/15/15 [address] [place] [address] documented as of this encounter
--- OUTSIDE RECORDS SUMMARY | 2022-04-22 08:27 | XMS_ITS | Encounter Summary ---
:1945 Author Organization [facility] [place] [address] Care Team Providers Name Role Phone MiyaAngela STACIE Primary Care Provider Reason for Visit Reason Onset Date Comments Advice Only 03/31/2013 Encounter Details Date Type Department Care Team Description 03/31/2013 Telephone Urology at [facility] Daniele Trejo III, MD Advice Only [facility] [place] [address] [place] [id number] [phone] (Wo rk) Social History Tobacco Use Types [...] Dolan MD [facility] [place], [place] [address] (Wo rk) 05/28/2022 Laboratory Appointment Lab 05/28/2022 Office Visit Cardiology Zulma Dolan MD [facility] [place] [address] Liz Poole PA [facility] [place] [address] 06/10/2022 Office Visit Dermatology Laura Scherer MD [facility] DR TEJA GR-DERMAT [place], [place] [address] (Wo rk) documented as of this encounter Visit Diagnoses Not on filedocumented in this encounter Care Teams High School Math Teacher Relationship Specialty Start Date End Date Angela Holliday APRN PCP - General 01/25/13 04/15/[address] [place] [address] documented as of this encounter
--- OUTSIDE RECORDS SUMMARY | 2022-04-22 08:27 | XMS_ITS | Encounter Summary ---
:1945 [place] [address] Care Team Providers Name Role Phone MiyaLokeshAngela STACEI Primary Care Provider Encounter Details Date Type Department Care Team Description 03/28/2013 Anesthesia Event Main Operating Room Meredith Calvert MD [facility] [place] [address] [facility] Nolvia Riojas PA [facility] [place] [address] [place] [address] Anesthesia Record Procedure Summary Procedure Name [...] Dolan MD [facility] [place] [address] Liz Poole PA [facility] [place] [address] 06/10/2022 Office Visit Dermatology Laura Scherer MD [facility] DR TEJA GR-DERMAT [place], [place] [address] (Wo rk) documented [...] Routine documented in this encounter Care Teams Psychiatric Nursing Aide Relationship Specialty Start Date End Date Angela Holliday APRN PCP - General 01/25/13 04/15/[address] [place] [address] documented as of this encounter
--- OUTSIDE RECORDS SUMMARY | 2022-04-22 08:27 | XMS_ITS | Encounter Summary ---
:1945 Author Organization [facility] [place] [address] Care Team Providers Name Role Phone Angela Holliday APRN Primary Care Provider Encounter Details Date Type Department Care Team Description 01/25/2013 Clinical [place] [address] Social History Tobacco Use Types Packs/Day [...] Zulma Dolan MD [facility] [address] [place] [address] (Wo rk) 05/28/2022 Laboratory Appointment Lab 05/28/2022 Office Visit Cardiology Zulma Dolan MD [facility] [place] [address] Liz Poole PA [facility] [place] [address] 06/10/2022 Office Visit Dermatology Laura Scherer MD [facility] DR TEJA GR-DERMAT [place], [place] [address] (Wo rk) documented as of this encounter Visit Diagnoses Not on filedocumented in this encounter Care Teams Sleeve Separator Relationship Specialty Start Date End Date Angela Holliday APRN PCP - General 01/25/13 04/15/[address] [place] [address] documented as of this encounter
--- OUTSIDE RECORDS SUMMARY | 2022-04-22 08:27 | XMS_ITS | Encounter Summary ---
:1945 Author Organization [place] [address] Care Team Providers Name Role Phone Unknown Primary Care Provider Unavailable Reason for Visit Reason Comments Other Encounter Details Date Type Department Care Team Description 10/05/2012 Telephone Dermatology at [facility] Rigoberto Garcia III, [address] [place] [address] [facility] [phone] TEJA MARIE-DERMAT [place] [address] (Wo rk) Social History Tobacco Use Types [...] Cardiology Zulma Dolan MD [facility] [place], [place] [address] (Wo rk) 05/28/2022 Laboratory Appointment Lab 05/28/2022 Office Visit Cardiology Zulma Dolan MD [facility] [place] [address] Liz Poole PA [facility] [place] [address] 06/10/2022 Office Visit Dermatology Laura Scherer MD [facility] DR TEJA MARIE-DERMAT [place], [place] [address] (Wo rk) documented as of this encounter Visit Diagnoses Not on filedocumented in this encounter Care Teams Electro Mechanical Designer Relationship Specialty Start Date End Date Unknown PCP - General 10/04/12 01/24/13 None documented as of this encounter
--- OUTSIDE RECORDS SUMMARY | 2022-04-22 08:27 | XMS_ITS | Encounter Summary ---
:1945 Author Organization [facility] [place] [address] Care Team Providers Name Role Phone Angela Holliday APRN Primary Care Provider Encounter Details Date Type Department Care Team Description 03/30/2013 Telephone General Surgery at [facility] Cliff Nevarez, [place] [address] Social History Tobacco Use Types Packs/Day [...] Zulma Dolan MD [facility] [address] [place], [place] [address] (Wo rk) 05/28/2022 Laboratory Appointment Lab 05/28/2022 Office Visit Cardiology Zulma Dolan MD [facility] [place] [address] Liz Poole PA [facility] [place] [address] 06/10/2022 Office Visit Dermatology Laura Scherer MD [facility] DR TEJA GR-DERMAT [place], [place] [address] (Wo rk) documented as of this encounter Visit Diagnoses Not on filedocumented in this encounter Care Teams Varnish Mixer Relationship Specialty Start Date End Date Angela Holliday APRN PCP - General 01/25/13 04/15/[address] [place] [address] documented as of this encounter
--- OUTSIDE RECORDS SUMMARY | 2022-04-22 08:27 | XMS_ITS | Encounter Summary ---
:1945 Author Organization [facility] [place] [place] [address] Care Team Providers Name Role Phone MiyaLokeshAngela STACIE Primary Care Provider Reason for Visit Reason Onset Date Comments Post-op Problem 04/05/2013 voiding trial Encounter Details Date Type Department Care Team Description 04/05/2013 Telephone Urology at [facility] Blade Smith, Post-op Problem [facility] (voiding trial) [place] [address] UROLOGY DEPT [place] [phone] (Wo rk) Social History Tobacco Use Types [...] Zulma Dolan MD [facility] Dr [place], [place] [address] (Wo rk) 05/28/2022 Laboratory Appointment Lab 05/28/2022 Office Visit Cardiology Zulma Dolan MD [facility] [place] [address] Liz Poole PA [facility] [place] [address] 06/10/2022 Office Visit Dermatology Laura Scherer MD [facility] DR TEJA GR-DERMAT [place], [place] [address] (Wo rk) documented as of this encounter Visit Diagnoses Not on filedocumented in this encounter Care Teams Educational Consultant Relationship Specialty Start Date End Date Angela Holliday APRN PCP - General 01/25/13 04/15/[address] [place] [address] documented as of this encounter
--- OUTSIDE RECORDS SUMMARY | 2022-04-22 08:27 | XMS_ITS | Encounter Summary ---
:1945 Author Organization [facility] [place] [address] Care Team Providers Name Role Phone Angela Holliday STACIE Primary Care Provider Encounter Details Date Type Department Care Team Description 04/04/2013 Telephone Urology at [facility] Parker Sanchez MD [facility] [place] [address] UROLOGY DEPT [phone] [place], [place] [address] (Wo rk) Social History Tobacco [...] Dolan MD [facility] Dr [place], [place] [address] (Wo rk) 05/28/2022 Laboratory Appointment Lab 05/28/2022 Office Visit Cardiology Zulma Dolan MD [facility] [place] [address] Liz Poole PA [facility] [place] [address] 06/10/2022 Office Visit Dermatology Laura Scherer MD [facility] DR TEJA GR-DERMAT [place], [place] [address] (Wo rk) documented as of this encounter Visit Diagnoses Not on filedocumented in this encounter Care Teams Reamer Hand Relationship Specialty Start Date End Date Angela Holliday APRN PCP - General 01/25/13 04/15/[address] [place] [address] documented as of this encounter
--- OUTSIDE RECORDS SUMMARY | 2022-04-22 08:27 | XMS_ITS | Encounter Summary ---
:1945 Author Organization [place] [address] Care Team Providers Name Role Phone Brody Berrios MD Primary Care Provider Reason for Visit Reason Comments Annual Exam Encounter Details Date Type Department Care Team Description 09/22/2011 Follow-Up Dermatology Arik Tipton Psoriasis (Primary Dx); [facility] MD Jorge Personal history of other malignant neop lasm of skin Drive [place] [phone] DERMATOLOGY DEPT . 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 His only complaints tail bone and [...] Routed to physician for review and changes: Arki Tipton MD Section of Dermatology [facility] documented in this encounter Plan of Treatment Upcoming Encounters Date Type Specialty Care Team Description 05/28/2022 Appointment Cardiology Zulma Dolan MD [facility] [address] [place], [place] [address] (Wo rk) 05/28/2022 Laboratory Appointment Lab 05/28/2022 Office Visit Cardiology Zulma Dolan MD [facility] [place] [address] Liz Poole PA [facility] [place] [address] 06/10/2022 Office Visit Dermatology Laura Scherer MD [facility] DR [address]-DERMAT [place], [place] [address] (Wo rk) documented as of this encounter Visit Diagnoses Diagnosis Psoriasis - Primary Other psoriasis Personal history of other malignant neop lasm of skin documented in this encounter Care Teams Personal Financial Counselor Relationship Specialty Start Date End Date Brody Berrios MD PCP - General 09/22/11 10/03/[address] [place] [address] documented as of this encounter
--- OUTSIDE RECORDS SUMMARY | 2022-04-22 08:28 | XMS_ITS | Encounter Summary ---
:1945 Author Organization [facility] Address [address] [place] [address] Care Team Providers Name Role Phone Lovely Vicente MD Primary Care Provider Encounter Details Date Type Department Care Team Description 02/20/2022 Lab Requisition [facility] Outr Resulting Lab, Pathology & Laboratory Provider [facility] [address] [place] [address] Social History Tobacco Use Types Packs/Day Years [...] nature PSA 2.7 <=6.5 ng/mL [facility] LABORATOR Y SERVICES Specimen Blood - Venous blood (substance) Narrative [facility]OR[facility] SERVICES - 02/20/2022 18:17 EDT NOTE: Serum PSA concentration should not be in terpreted as absolute evidence for the presence or absence of malignant disease. Assayed on Siemens ADVIA Centaur XPT usi ng chemiluminescent technology.??Values obtained by using different assay methods cannot be used interchangeably. Performing Organization Address City/State/ZIP Code Phon e Number [facility] LABOR[facility]ORY [address] [place] [address] SERVICES documented in this encounter Visit Diagnoses Not on filedocumented in this encounter Care Teams Redipper Relationship Specialty Start Date End Date Lovely Vicente MD PCP - General 07/13/14 documented as of this encounter
--- OUTSIDE RECORDS SUMMARY | 2022-04-22 08:29 | XMS_ITS | Encounter Summary ---
:1945 Author Organization [facility] Address [address] [place] [address] Care Team Providers Name Role Phone Lovely Vicente MD Primary Care Provider Encounter Details Date Type Department Care Team Description 01/01/2020 Lab Requisition [facility] Outr Resulting Lab, Pathology & Laboratory Provider [facility] [address] [place] [address] Social History Tobacco Use Types Packs/Day Years [...] nature PSA 2.1 0.0 - 6.5 ng/mL [facility] LABOR[facility] TORY SERVICES Specimen Blood - Venous blood (substance) Narrative [facility] SERVICES - 01/02/2020 10:40 EDT NOTE: Serum PSA concentration should not be in terpreted as absolute evidence for the presence or absence of malignant disease. Assayed on Siemens ADVIA Centaur XPT usi ng chemiluminescent technology.??Values obtained by using different assay methods cannot be used interchangeably. Performing Organization Address City/State/ZIP Code Phon e Number [facility] [address] [place] [address] SERVICES documented in this encounter Visit Diagnoses Not on filedocumented in this encounter Care Teams Clamp Operator Relationship Specialty Start Date End Date Lovely Vicente MD PCP - General 07/13/14 documented as of this encounter
--- OUTSIDE RECORDS SUMMARY | 2022-04-22 08:29 | XMS_ITS | Encounter Summary ---
:1945 Author Organization [facility] Address [address] [place] [address] Care Team Providers Name Role Phone Unknown, Provider Primary Care Provider Encounter Details Date Type Department Care Team Description 07/11/2014 Hospital Encounter [facility] [place] Unknown, Provider, [facility] [address] [place] [address] [place] [address] (Work) [phone] Social History Tobacco Use Types Packs/Day Years Used Date Never Assessed Sex Assigned at Date Recorded Not on file documented as of this encounter Discharge Disposition Disposition Code Departure Means Destination Home or Self Half-Way documented in this encounter Plan of Treatment Not on filedocumented as of this encounter Visit Diagnoses Not on filedocumented in this encounter Care Teams Well Cleaner Relationship Specialty Start Date End Date Unknown, Provider, PCP - General 03/07/14 07/12/14 documented as of this encounter
--- OUTSIDE RECORDS SUMMARY | 2022-04-22 08:29 | XMS_ITS | Encounter Summary ---
:1945 Author Organization [facility] Address [address] [place] [address] Care Team Providers Name Role Phone Lovely Vicente MD Primary Care Provider Encounter Details Date Type Department Care Team Description 04/04/2021 Lab Requisition [facility] Outr Resulting Lab, Pathology & Laboratory Provider [facility] [address] [place] [address] Social History Tobacco Use Types Packs/Day Years [...] [facility] Shigella/Enteroinvasive Negative Negative [facility] HN LAB CAMPYLOBACTER PCR Negative Negative [facility] ER LABORATORY SERVICES Shiga Toxin PCR Negative Negative [facility] Specimen Feces - Specimen from rectum (specimen) Performing Organization Address City/State/ZIP Code Phon e Number [facility] [address] [place] [address] SERVICES documented in this encounter Visit Diagnoses Not on filedocumented in this encounter Care Teams Suede Cleaner Relationship Specialty Start Date End Date Lovely Vicente MD PCP - General 07/13/14 documented as of this encounter
--- OUTSIDE RECORDS SUMMARY | 2022-04-22 08:29 | XMS_ITS | Encounter Summary ---
:[address] [facility] Address [address] [place] [address] Care Team Providers Name Role Phone Unknown, Provider Primary Care Provider Encounter Details Date Type Department Care Team Description 03/05/2014 Results Only [facility] Eris Taylor MD Laboratory Services - [address] [place] [address] [place] [address] [phone] Social History Tobacco Use Types Packs/Day Years Used Date Never Assessed Sex Assigned at Date Recorded Not on file documented as of this encounter Plan of Treatment Not on filedocumented as of this encounter Procedures Procedure Name Priority Date/Time Associated Diagnosis Comme [facility] SURGICAL PATHOLOGY Routine 03/05/2014 10:34 Resul ts [...] ? DON HOANG ? Accession #: ? [id number] ? : ? 1945 (Age: 68) ??M [...] Organization Address City/State/ZIP Code Phon e Number [facility] [address] [place] [address] SERVICES [facility] [address] [place] [address] documented in this encounter Visit Diagnoses Not on filedocumented in this encounter Care Teams Oil And Gas Well Treatment Operator Relationship Specialty Start Date End Date Unknown, Provider, PCP - General 03/07/14 07/12/14 documented as of this encounter
--- OUTSIDE RECORDS SUMMARY | 2022-04-22 08:29 | XMS_ITS | Encounter Summary ---
:1945 Author Organization [facility] Address [address] [place] [address] Care Team Providers Name Role Phone Lovely Vicente MD Primary Care Provider Encounter Details Date Type Department Care Team Description 04/04/2021 Lab Requisition [facility] Outr Resulting Lab, Pathology & Laboratory Provider [facility] [address] [place] [address] Social History Tobacco Use Types Packs/Day Years [...] (04/03/2021 12:15 EDT) Giardia and Cryptosporidium Cryptosporidium [facility] Cryptosporidium Antigen Neg and Antigen Neg and CENTER Giardia Antigen Neg Giardia Antigen Neg LABORATORY SERVICES Specimen Feces - Specimen from rectum (specimen) Performing Organization Address City/State/ZIP Code Phon e Number [facility] [address] [place] [address] SERVICES documented in this encounter Visit Diagnoses Not on filedocumented in this encounter Care Teams Incubator Operator Relationship Specialty Start Date End Date Lovely Vicente MD PCP - General 07/13/14 documented as of this encounter
--- OUTSIDE RECORDS SUMMARY | 2022-04-22 08:29 | XMS_ITS | Encounter Summary ---
:1945 Author Organization [facility] Address [address] [place] [address] Care Team Providers Name Role Phone Lovely Vicente MD Primary Care Provider Encounter Details Date Type Department Care Team Description 01/17/2021 Lab Requisition [facility] Outr Resulting Lab, Pathology & Laboratory Provider General acute hospital [address] [place] [address] Social History Tobacco Use Types Packs/Day Years [...] nature PSA 2.9 0.0 - 6.5 ng/mL [facility] Specimen Blood - Venous blood (substance) Narrative [facility] - 01/17/2021 17:46 EDT NOTE: Serum PSA concentration should not be in terpreted as absolute evidence for the presence or absence of malignant disease. Assayed on Siemens ADVIA Centaur XPT usi ng chemiluminescent technology.??Values obtained by using different assay methods cannot be used interchangeably. Performing Organization Address City/State/ZIP Code Phon e Number [facility] [address] [place] [address] SERVICES documented in this encounter Visit Diagnoses Not on filedocumented in this encounter Care Teams Phonograph Mechanic Relationship Specialty Start Date End Date Lovely Vicente MD PCP - General 07/13/14 documented as of this encounter
== END 2022-04-24 23:59 | disposition home or self-care (01) ==
LOC: CR 08:12
PROVIDERS: PCP Family Medicine; Visit Provider Internal Medicine Cardiovascular Disease
DX: Z51.89 Encounter for other specified aftercare (principal); I50.9 Heart failure, unspecified; I25.2 Old myocardial infarction; Z95.5 Presence of coronary angioplasty implant and graft
CPT/HCPCS: S9472

== ENCOUNTER 2022-05-08 02:16 | Outpatient (CLI) | payer MEDICARE, BC, SELFPAY ==
--- OUTSIDE RECORDS SUMMARY | 2022-05-08 02:18 | XMS_ITS | Encounter Summary ---
:1945 Author Organization [facility] [place] [address] Care Team Providers Name Role Phone Lovely Vicente MD Primary Care Provider Encounter Details Date Type Department Care Team Description 03/26/2022 Office Visit Cardiology at [facility] Vitaliy Nobles MD Chronic systolic heart failure; [facility] ONE MEDICAL ASCVD (ar teriosclerotic cardiovascular disease); [facility] Cardiomyopathy, ischemic [place], [place] CARDIOLOGY [address] [place] [address] [phone] Social History Tobacco Use Types Packs/Day Years [...] [facility] [place] [address] CARDIOLOGY OUTPATIENT CLINIC VISIT [facility] Don Mccollum Kushal 03/26/2022 Referring Providers: MD Jules Cr Joyce, MD [address] [place] [address] CHIEF COMPLAINT: I am doing well CARDIAC-RELEVANT [...] using a 2.0 x 26 mm ORION Zeeland TUCKER stent. This completes therevascularization of all [...] in [address] Lovely Vicente MD [address] [place] [phone] HISTORY OF PRESENT ILLNESS: Don Fatima is [...] using a 2.0 x 26 mm ORION Zeeland TUCKER stent. This completes the revascularization of [...] [facility] OR ??? PRO AMPUTATION FOOT, TRANSMETATARSAL Right 08/09/2017 AMPUTATION, TRANSMETATARSAL (WRVU 12.71) performed by Yonathan Smith MD at [facility] OR ??? PRO CABG, ARTERIAL, SINGLE N/A 07/07/2017 @CABG, USING ARTERIAL GRAFT;SINGLE ARTERIAL GRAFT (WRVU 33.75) performed by Yuan Retana MD at [facility] OR ??? PRO CABG, ARTERY-VEIN, TWO N/A 07/07/2017 @CABG, TWO VENOUS GRAFTS & ARTERIAL GRAFT (WRVU 7.93) performed by Yuan Retana MD at [facility] OR ??? PRO COLONOSCOPY, REMV LESN, SNARE 01/16/2014 COLONOSCOPY, POLYPECTOMY, REMOVAL LESION BY SNARE performed by Nohemi Jaimes MD at [facility] ENDOSCOPY ??? PRO DRESSING CHANGE UNDER ANESTHESIA Right 08/11/2017 (MSURG) DRESSING CHANGE (FOR OTHER THAN IVAN) UNDER ANES. (WRVU 0.86) performed by Lamar Smith MD at [facility] MAIN OR ??? PRO ENDOSCOPY W/VIDEO-ASST VEIN HARVEST, CABG Right 07/07/2017 ENDOSCOPIC HARVEST VEIN(S) FOR CABG (WRVU 0.31) performed by Yuan Retana MD at [facility] MAIN OR ??? PRO PERC TRLUML CORONARY STENT W/ANGIO ONE ART/BRANCH N/A 01/30/2022 STENT PLACEMENT-SINGLE MAJOR CORONARY ARTERY OR BRANCH performed by Vitaliy Nobles MD at [facility] CATH LABS ??? PRO THYROIDECTOMY 03/28/2013 THYROIDECTOMY, TOTAL OR COMPLETE performed by Manny Mcknight MD at [facility] MAIN OR SOCIAL HISTORY: reports that [...] using a 2.0 x 26 mm ORION Zeeland TUCKER stent. This completes the revascularization of [...] Sincerely, Dr. Vitaliy Nobles MD [place] [facility] Business Case Analyst Interventional Cardiology 03/26/2022 CC: Lovely Vicente MD [...] per DC Summary - Admitted to [facility] on 12/08/21, transferred from [facility], respiratory distress with hypoxia 86% [...] Antiplatelet (DAPT) Recommendations above ? TTE from [facility] 12/08/21 ?? 07/28/2019 Echocardiogram: SUMMARY: [...] regurgitation present. 07/07/2019 - 07/21/2019 Zio Patch Citrix Lead The patient had a minimum heart [...] 12.5 mg daily 6. Post-op atrial fibrillation [id number] (CHF, HTN, DM, vascular disease, thromboembolism) [...] MD [facility] I[place] [address] Liz Poole PA [facility] [place] [address] 06/10/2022 Office Visit Dermatology Laura Scherer MD [facility] [address] [place], [place] [address] (Wo rk) documented as of this encounter Visit Diagnoses Diagnosis Chronic systolic heart failure ASCVD (arteriosclerotic cardiovascular d isease) Unspecified cardiovascular disease Cardiomyopathy, ischemic Other specified forms of chronic ischemi c heart disease documented in this encounter Care Teams System Administrator Relationship Specialty Start Date End Date Lovely Vicente MD PCP - General 04/16/[address] [place] [address] documented as of this encounter
--- OUTSIDE RECORDS SUMMARY | 2022-05-08 02:18 | XMS_ITS | Encounter Summary ---
:1945 Author Organization [facility] [place] [address] Care Team Providers Name Role Phone Lovely Vicente MD Primary Care Provider Encounter Details Date Type Department Care Team Description 02/24/2022 Notes Only [place] [address] Social History Tobacco Use Types Packs/Day [...] return to the Medication Assistance Program. The [facility] office will follow up with the patient in 5 business days to see if the patient has received the application and if they have any questions. documented in this encounter Plan of Treatment Upcoming Encounters Date Type Specialty Care Team Description 05/28/2022 Appointment Cardiology Zulma Dolan MD [facility] [address] [place], [place] [address] (Wo rk) 05/28/2022 Laboratory Appointment Lab 05/28/2022 Office Visit Cardiology Zulma Dolan MD [facility] [place] [address] Liz Poole PA [facility] [place] [address] 06/10/2022 Office Visit Dermatology Laura Scherer MD [facility] ER [address] [place], [place] [address] (Wo rk) documented as of this encounter Visit Diagnoses Not on filedocumented in this encounter Care Teams Occupational Health And Safety Officer Relationship Specialty Start Date End Date Lovely Vicente MD PCP - General 04/16/[address] [place] [address] documented as of this encounter
--- OUTSIDE RECORDS SUMMARY | 2022-05-08 02:18 | XMS_ITS | Encounter Summary ---
:1945 Author Organization [facility] [place] [address] Care Team Providers Name Role Phone Lovely Vicente MD Primary Care Provider Reason for Visit Reason Onset Date Comments Medication Refill 03/11/2022 Encounter Details Date Type Department Care Team Description 03/06/[address] [facility] Liz Poole PA Medication Refill [facility] Jorge mcnamara [facility] [place] [address] Cardiology Dept [phone] [place], [place] [address] (Wo rk) Social History Tobacco [...] Dolan MD [facility] er [address] [place], [place] [address] (Wo rk) 05/28/2022 Laboratory Appointment Lab 05/28/2022 Office Visit Cardiology Zulma Dolan MD [facility] [place] [address] Liz Poole PA [facility] [place] [address] 06/10/2022 Office Visit Dermatology Laura Scherer MD [facility] ER [address] [place], [place] [address] (Wo rk) documented as of this encounter Visit Diagnoses Not on filedocumented in this encounter Care Teams Alcoholic Counselor Relationship Specialty Start Date End Date Lovely Vicente MD PCP - General 04/16/[address] [place] [address] documented as of this encounter
--- OUTSIDE RECORDS SUMMARY | 2022-05-08 02:18 | XMS_ITS | Encounter Summary ---
:1945 Author Organization [facility] [place] [address] Care Team Providers Name Role Phone Lovely Vicente MD Primary Care Provider Encounter Details Date Type Department Care Team Description 02/24/2022 Orders Only Cardiology at [facility] Liz Poole, Chronic systolic heart [facility] [place] [address] Cardiology Dept [place], [place] [address] Social History Tobacco Use Types [...] MD [facility] er [address] [place], [place] [address] (Wo rk) 05/28/2022 Laboratory Appointment Lab 05/28/2022 Office Visit Cardiology Zulma Dolan MD [facility] [place] [address] Liz Poole PA [facility] [place] [address] 06/10/2022 Office Visit Dermatology Laura Scherer MD [facility] ER [address] [place], [place] [address] (Wo rk) documented as of this encounter Visit Diagnoses Diagnosis Chronic systolic heart failure documented in this encounter Care Teams Inventory Technician Relationship Specialty Start Date End Date Lovely Vicente MD PCP - General 04/16/[address] [place] [address] documented as of this encounter
--- OUTSIDE RECORDS SUMMARY | 2022-05-08 02:18 | XMS_ITS | Encounter Summary ---
:1945 Author Organization [facility] Address [facility] [place] [address] Care Team Providers Name Role Phone Lovely Vicente MD Primary Care Provider Reason for Visit Reason Onset Date Comments Medication Refill 03/06/2022 Metoprolol Succinate Encounter Details Date Type Department Care Team Description 03/06/2022 Refill Cardiology at [facility] Liz Poole PA Medication Refill [facility] (Mt toprolol Succinate) [place] [address] Cardiology Dept [phone] [place], [place] [address] (Wo rk) Social History Tobacco [...] Dolan MD [facility] er [place], [place] [address] (Wo rk) 05/28/2022 Laboratory Appointment Lab 05/28/2022 Office Visit Cardiology Zulma Dolan MD [facility] [place] [address] Liz Poole PA [facility] [place] [address] 06/10/2022 Office Visit Dermatology Laura Scherer MD [facility] ER DR [address] [place], [place] [address] (Wo rk) documented as of this encounter Visit Diagnoses Diagnosis Chronic systolic heart failure Cardiomyopathy, ischemic Other specified forms of chronic ischemi c heart disease documented in this encounter Care Teams Belt Back Operator Relationship Specialty Start Date End Date Lovely Vicente MD PCP - General 04/16/[address] [place] [address] documented as of this encounter
--- OUTSIDE RECORDS SUMMARY | 2022-05-08 02:18 | XMS_ITS | Encounter Summary ---
:1945 Author Organization [facility] [place] [address] Care Team Providers Name Role Phone Lovely Vicente MD Primary Care Provider Encounter Details Date Type Department Care Team Description 02/23/2022 Refill Cardiology at [facility] Liz Poole PA [facility] [place] [address] Cardiology Dept [phone] [place], [place] [address] (Wo rk) Social History Tobacco [...] Oneill RPH Transfer of Services Don Fatima [address] [place] [address] [place] [address] Telephone Information: Work Phone Not on file. The [facility] has received a prescription for Entresto for patient Mr. Don Faitma 76 y.o. (1945). The patient requests the prescription to be filled with [facility]. We spoke to patient to notify of this change and to provide number to reach the new filling pharmacy. A copyof patient's medication profile was offered to the accepting pharmacy. Additional instructions provided to patient about transfer: no The patient has been advised to call the [facility] at [phone] with any questionsor concerns on this referral. Thank you, Oxana Oneill RPH 02/23/22 4:26 PM Patient understands no changes to current drug regimen were made at this time. documented in this encounter Plan of Treatment Upcoming Encounters Date Type Specialty Care Team Description 05/28/2022 Appointment Cardiology Zulma Dolan MD [facility] [place], [place] [address] (Wo rk) 05/28/2022 Laboratory Appointment Lab 05/28/2022 Office Visit Cardiology Zulma Dolan MD [facility] [place] [address] Liz Poole PA [facility] [place] [address] 06/10/2022 Office Visit Dermatology Laura Scherer MD [facility] [address] [place], [place] [address] (Wo rk) documented as of this encounter Visit Diagnoses Not on filedocumented in this encounter Care Teams Jewel Bearing Grinder Relationship Specialty Start Date End Date Lovely Vicente MD PCP - General 04/16/[address] [place] [address] documented as of this encounter
--- OUTSIDE RECORDS SUMMARY | 2022-05-08 02:18 | XMS_ITS | Encounter Summary ---
:1945 Author Organization [facility] Address [facility] [place] [address] Care Team Providers Name Role Phone Lovely Vicente MD Primary Care Provider Reason for Visit Reason Comments Prior Authorization Entresto 24-26mg tablets Encounter Details Date Type Department Care Team Description 02/20/2022 Specialty Pharmacy Pharmacy at [facility] Lamberto Smith Prior Authorization [facility] J (Entresto 24-26mg Drive tablets) [place] [id number] Social History Tobacco Use Types Packs/Day Years [...] Fatima Patient : 1945 Patient Address: [address] [place] [address] [place] [address] (home) Medication Name: ENTRESTO 24 MG-26 MG TABLET Medication ID: [id number] Patient Location: [facility] CARDIOLOGY 4A Patient Location Comment: Medication Strength Frequency Requested: Entresto 24-26mg tablets / One tablet twice daily Qty/Day Supply: New Start: New to Therapy Diagnosis & ICD-10 Code: Chronic systolic heart failure, I50.22 Subscriber Insurance: [employer] [facility] Subscriber Insurance Comment: Fax: Physician: LIZ CARRERA Physician Comment : PA Status: NO PA REQUIRED Insurance mandated Pharmacy: Unknown Fillable at [facility]: Yes Insurance requirements/notes: None Copay: $119.01 (goes to coverage gap/odalys monteiro) Copay assistance: [facility] Copay assistance comment: If cost isn't affordable, then we'll suggest enrollment in the currently open [facility] Heart Failure zoila, which provides up to $1000 in copay assistance. If zoila closes, or doesn't work out, then the patient can attempt enrollment in the [facility] assistance program, the [employer] Patient Assistance [employer] (NPAF). At which point we'd refer to [facility] for assistance with enrollment. Pharmacy staff [...] MD [facility] [address] [place], [place] [address] (Wo rk) 05/28/2022 Laboratory Appointment Lab 05/28/2022 Office Visit Cardiology Zulma Dolan MD [facility] [place] [address] Liz Carrera PA [facility] [place] [address] 06/10/2022 Office Visit Dermatology Laura Scherer MD [facility] ER [address] [place], [place] [address] (Wo rk) documented as of this encounter Visit Diagnoses Not on filedocumented in this encounter Care Teams Field Party Manager Relationship Specialty Start Date End Date Lovely Vicente MD PCP - General 04/16/[address] [place] [address] documented as of this encounter
--- OUTSIDE RECORDS SUMMARY | 2022-05-08 02:18 | XMS_ITS | Encounter Summary ---
:1945 Author Organization [facility] Address [facility] [place] [address] Care Team Providers Name Role Phone Lovely Vicente MD Primary Care Provider Reason for Visit Reason Onset Date Comments Medication Refill 04/09/2022 Jardiance Encounter Details Date Type Department Care Team Description 04/09/2022 Refill Cardiology at [facility] Liz Poole PA Medication Refill [facility] (Ja rdiance) [place] [address] Cardiology Dept [phone] [place], [place] [address] (Wo rk) Social History Tobacco [...] MD [facility] er [address] [place] [address] (Wo rk) 05/28/2022 Laboratory Appointment Lab 05/28/2022 Office Visit Cardiology Zulma Dolan MD [facility] [place] [address] Liz Poole PA [facility] [place] [address] 06/10/2022 Office Visit Dermatology Laura Scherer MD [facility] ER DR [address] [place], [place] [address] (Wo rk) documented as of this encounter Visit Diagnoses Diagnosis Chronic systolic heart failure documented in this encounter Care Teams Fire Pilot Relationship Specialty Start Date End Date Lovely Vicente MD PCP - General 04/16/[address] [place] [address] documented as of this encounter
--- OUTSIDE RECORDS SUMMARY | 2022-05-08 02:18 | XMS_ITS | Encounter Summary ---
:1945 Author Organization [facility] [address] Care Team Providers Name Role Phone Lovely Vicente MD Primary Care Provider Reason for Visit Reason Comments Medication Refill Encounter Details Date Type Department Care Team Description 04/07/2022 Refill Cardiology at [facility] Janneth Padilla PA Medication Refill [facility] [place] [address] CARDIOLOGY DEPT. [phone] [place], [place] [address] (Wo rk) Social History Tobacco [...] Dolan MD [facility] [place], [place] [address] (Wo rk) 05/28/2022 Laboratory Appointment Lab 05/28/2022 Office Visit Cardiology Zulma Dolan MD [facility] [place] [address] [facility] [place] [address] 06/10/2022 Office Visit Dermatology Laura Scherer MD [facility] [address] [place], [place] [address] (Wo rk) documented as of this encounter Visit Diagnoses Not on filedocumented in this encounter Care Teams Camp Housekeeper Relationship Specialty Start Date End Date Lovely Vicente MD PCP - General 04/16/[address] [place] [address] [address] [place] [address] documented as of this encounter
--- OUTSIDE RECORDS SUMMARY | 2022-05-08 02:18 | XMS_ITS | Encounter Summary ---
:1945 Author Organization [facility] [place] [address] Care Team Providers Name Role Phone Lovely Vicente MD Primary Care Provider Reason for Visit Reason Onset Date Comments Follow-up 02/23/2022 Medication adjustmen t and new med Encounter Details Date Type Department Care Team Description 02/23/2022 Telephone Cardiology at [facility] Martha Comer, Follow-up ([facility] RN adjustbrandon t and new med) [place] [address] Social History Tobacco Use Types Packs/Day [...] the order for BMP and sent to [facility]. will call [facility] to make an appointment for [...] tablet) daily. She will correct his pill tool planner to the new dose. Will need to check with STEPHANIE Poole about repeat BMP to recheck K+ level. If yes he will get the test done at [facility]. They are aware that he will need to make an appt at [facility] to get the test done. [...] if he qualifies for assistance from the [facility]. She is thankful for the assistance, as he is taking insulin that is very expensive too. Instructed to call this junior underwriter, if he does qualify for assistance from [employer] and that he has gotten the medication [...] Cardiology Zulma Dolan MD [facility] [place], [place] [address] (Wo rk) 05/28/2022 Laboratory Appointment Lab 05/28/2022 Office Visit Cardiology Zulma Dolan MD [facility] [place] [address] Liz Poole PA [facility] [place] [address] 06/10/2022 Office Visit Dermatology Laura Scherer MD [facility] [address] [place], [place] [address] (Wo rk) documented as of this encounter Visit Diagnoses Not on filedocumented in this encounter Care Teams Survey Operations Director Relationship Specialty Start Date End Date Lovely Vicente MD PCP - General 04/16/[address] [place] [address] documented as of this encounter
--- OUTSIDE RECORDS SUMMARY | 2022-05-08 02:18 | XMS_ITS | Encounter Summary ---
:1945 [place] [address] Care Team Providers Name Role Phone Lovely Vicente MD Primary Care Provider Reason for Visit Reason Onset Date Comments Follow-up 03/06/2022 Dave Bueno Encounter Details Date Type Department Care Team Description 03/06/2022 Telephone Cardiology at [facility] Martha Comer, Follow-up ([facility] Start) [place] [address] Social History Tobacco Use Types Packs/Day [...] pt had gotten his labs done at [facility] yesterday. Results received, scanned and entered [...] Dolan MD [facility] [address] [place], [place] [address] (Wo rk) 05/28/2022 Laboratory Appointment Lab 05/28/2022 Office Visit Cardiology Zulma [place]olan [place] [address] Liz Poole PA [facility] [place] [address] 06/10/2022 Office Visit Dermatology Laura Scherer MD [facility] [address] [place], [place] [address] (Wo rk) documented as of [...] on filedocumented in this encounter Care Teams Chocolatier Relationship Specialty Start Date End Date Lovely Vicente MD PCP - General 04/16/[address] [place] [address] documented as of this encounter
--- OUTSIDE RECORDS SUMMARY | 2022-05-08 02:18 | XMS_ITS | Clinical Summary ---
:1945 Author Organization [facility] [place] [address] Care Team Providers Name Role Phone Lovely [...] 24-26 mg tablets) 02/19/2022 Office Visit Cardiology Vrigilio Chronic systoli c heart STEPHANIE [place] failure 02/19/2022 Laboratory [...] Dolan MD [facility] [place], [place] [address] (Wo rk) 05/28/2022 Laboratory Appointment Lab 05/28/2022 Office Visit Cardiology Zulma Dolan MD [facility] [place] [address] Liz Poole PA [facility] [place] [address] 06/10/2022 Office Visit Dermatology Laura Scherer MD [facility] [address] [place], [place] [address] (Wo rk) Health Maintenance Due Date Last Done Comments Covid-19 Vaccine (#1) 1945 Pneumoccocal Vaccine: 65+ (1 - PCV) 1952 Hepatitis C Screening 1964 Tdap adult 1965 Tetanus vaccine 1965 Zoster vaccine (1 of 2) 1996 Colonoscopy 01/16/2019 01/16/2014, 01/16/2014 Influenza (Flu) vaccine (1 of 1 - 03/26/2022 03/29/2013, Influenza standard series) Medical Devices Implanted Type Area Igniter Capper Device Shelf Model / Identifier Expiration Serial / Date Lot Cable,Cut,Edg,Blnt,Ss,3tpr ([id number]) - [id number] IMPLANTS Midline: [employer] 04/01/2022 [id number] / Implanted: Qty: 4 on 07/07/2017 by Yuan Retana MD at [facility] Sternum TECHNOLOGY - / [id number] Procedures Procedure Name Priority Date/Time Associated Comments Diagnosis BASIC METABOLIC PANEL Routine 03/05/2022 7:04 AM Results for this (NON-FASTING) EDT procedure are in the results section. LAB SCAN 03/05/2022 12:00 Results for this AM EDT procedure are i n the results section. DIFFERENTIAL, Routine 02/19/2022 8:06 AM Chronic systolic Resu lts for this AUTOMATED EDT heart failure procedure are in the results section. HEMOGRAM Routine 02/19/2022 8:06 AM Chronic systolic [...] (03/05/2022 7:04 AM EDT)Only the most recent of2 resultswithin [...] EXT ORDR/RSLT (ABNORMAL) Hemogram (02/19/2022 8:06 AM EDT) Analysis Performed At Patho logist Time Signature WBC 7.2 4.0 - 9.5 [facility] x10(3)/[facility] LABORATORY RBC 4.41 (L) 4.58 - [facility] RYAN 5.54 [facility] x10(6)/[facility] LABORATORY Hemoglobin 13.2 (L) 13.7 - [facility] RYAN 16.5 g/dL [facility] LABORATORY Hematocrit 40.9 40.5 - [facility] RYAN 48.5 % [facility] LABORATORY MCV 92.7 82.9 - [facility] RYAN 93.[address] [facility] LABORATORY MCH 29.9 27.5 - [place] 32.1 pg [facility] LABORATORY MCHC 32.3 32.0 - [facility] R[place]AN 35.7 g/dL [facility] LABORATORY Platelets 191 145 - 357 [facility] x10(3)/[facility] LABORATORY RDWSD 53.6 (H) 36.0 - [facility] RYAN 45.[address] [facility] LABORATORY RDWCV 15.6 (H) 11.4 - [facility] R[place]AN 13.8 % [facility] LABORATORY MPV 8.7 7.6 - 12.9 [facility] [employer] [facility] LABORATORY nRBC % Auto 0.0 % [facility] LABORATORY nRBC Abs Auto 0.000 0.000 - [facility] RYAN 0.000 [facility] x10(3)/[facility] LABORATORY Specimen Anatomical Collection Method Collection Time Receive d Time (Source) Location / / Volume Laterality Blood 02/19/2022 8:06 AM 8:09 EDT AM EDT Resulting Agency Comment Spec In Lab Liz BROWN HEMATOLOGY ORDERABLES Performing Organization Address City/State/ZIP Code Phon e Number [place] [id number] HOSP[address] LAB[address]ORY [address] (ABNORMAL) Differential, Automated (02/19/2022 8:06 AM EDT) [facility] gist Method Time Signature Neutrophils % 76.0 % [facility] LABORATORY Neutr Abs (ANC) 5.49 1.70 - [facility] 6.10 [facility] x10(3)/[facility] LABORATORY Lymphocytes % 10.8 % [facility] LABORATORY Lymphocytes Abs 0.8 (L) 0.9 - 3.2 [facility] x10(3)/[facility] LABORATORY Monocytes % 10.2 % [facility] LABORATORY Monocyte Abs 0.7 0.3 - 0.9 [facility] x10(3)/[facility] LABORATORY Eosinophils % 1.2 % [facility] LABORATORY Eosinophils Abs 0.1 0.0 - 0.4 [facility] x10(3)/[facility] LABORATORY Basophils % 0.8 % [facility] LABORATORY Basophils Abs 0.1 0.0 - 0.1 [facility] x10(3)/[facility] LABORATORY Immature Gran % 1.00 % [facility] [...] Gran Abs 0.07 (H) 0.00 - 0.04 x10(3)/[facility] LABORATORY Specimen Anatomical Collection Method Collection Time Receive d Time (Source) Location / / Volume Laterality Blood 02/19/2022 8:06 AM 8:09 EDT AM EDT Resulting Agency Comment Spec In Lab Liz BROWN HEMATOLOGY ORDERABLES Performing Organization Address City/State/[place] [address] (ABNORMAL) pro-Brain Natriuretic Peptide [...] Organization Address City/State/[place] [address] from Last 3 Months Insurance Payer Benefit Plan / Subscriber ID Effective Phone Address T ype Group Dates MEDICARE MEDICARE PART [id number] 2011-Prese [phone] [place] [id number] [employer] [id number] 2018-Prese [phone] [address] [place] [address] [place] [address] Advance Directives Documents on File Type Date Recorded Patient Physical Chemistry Professor Explanati on Advance Directives and Living 03/28/2013 [...] capacity to make decision: Yes Care Teams Back Shoe Worker Relationship Specialty Start Date End Date Lovely Vicente MD PCP - General 04/16/15 [address] [place] [address]
--- OUTSIDE RECORDS SUMMARY | 2022-05-08 02:18 | XMS_ITS | Encounter Summary ---
:1945 [place] [address] Care Team Providers Name Role Phone Lovely Vicente MD Primary Care Provider Reason for Visit Reason Onset Date Comments Follow-up 02/26/2022 Entresto start Encounter Details Date Type Department Care Team Description 02/26/2022 Telephone Cardiology at [facility] Martha Comer, Follow-up ([facility] RN start) [place] [address] Social History Tobacco Use Types Packs/Day [...] on 03/05/22 Getting labs done at : [facility] Order e-faxed by STEPHANIE Poole on 02/24/22. /pt to call on 03/05/22 letting us know to get the BMP results from [facility]. Nursing to get results and contact pt to see how he is tolerating the Entresto. They are to call sooner with any questions/concerns. documented in this encounter Plan of Treatment Upcoming Encounters Date Type Specialty Care Team Description 05/28/2022 Appointment Cardiology Zulma Dolan MD [facility] [place], [place] [address] (Wo rk) 05/28/2022 Laboratory Appointment Lab 05/28/2022 Office Visit Cardiology Zulma Dolan MD [facility] [place] [address] Liz Poole PA [facility] [place] [address] 06/10/2022 Office Visit Dermatology Laura Scherer MD [facility] [address] [place], [place] [address] (Wo rk) documented as of this encounter Visit Diagnoses Not on filedocumented in this encounter Care Teams Business Systems Administrator Relationship Specialty Start Date End Date Lovely Vicente MD PCP - General 04/16/[address] [place] [address] documented as of this encounter
--- OUTSIDE RECORDS SUMMARY | 2022-05-08 02:19 | XMS_ITS | Encounter Summary ---
:1945 [place] [address] Care Team Providers Name Role Phone Lovely Vicente MD Primary Care Provider Encounter Details Date Type Department Care Team Description 12/25/2021 Office Visit Cardiology at [facility] Liz Poole, Chronic systolic heart [facility] [place] [address] Cardiology Dept [phone] [place], [place] [address] Social History Tobacco Use Types [...] As per DC Summary - Admitted to [facility] on 12/08/21, transferred from [facility], respiratory distress with hypoxia 86% on RA. [...] mg PO daily in place of Lasix. Sutton is new for him and he [...] Antiplatelet (DAPT) Recommendations above ? TTE from [facility] 12/08/21 ?? 07/28/2019 Echocardiogram: SUMMARY: 1. The [...] regurgitation present. 07/07/2019 - 07/21/2019 Zio Patch Senior Principal The patient had a minimum heart rate [...] hyperkalemia 4.9 today 6. Post-op atrial fibrillation [id number] (CHF, HTN, DM, vascular disease, thromboembolism) Eliquis 7. PAD 08/06/2017: Right 1st, 2nd, 3rd toe amputation 08/11/2017: Left??femoral arterial access, RLE??angiogram, Balloon angioplasty of R PT 10/25/2017: right popliteal-pedal bypass at [facility] 8. Hypothyrodism S/p thyroidectomy for goiter Levothyroxine ?? Plan: 1 month follow up with labs Liz Poole PA-C 12/25/2021 documented in this encounter Plan of Treatment Upcoming Encounters Date Type Specialty Care Team Description 05/28/2022 Appointment Cardiology Zulma Dolan MD [facility] [address] [place], [place] [address] (Wo rk) 05/28/2022 Laboratory Appointment Lab 05/28/2022 Office Visit Cardiology Zulma Dolan MD [facility] [place] [address] Liz Poole PA [facility] [place] [address] 06/10/2022 Office Visit Dermatology Laura Scherer MD [facility] ER [address] [place], [place] [address] (Mikayla alcaraz) documented as of this encounter Results (ABNORMAL) pro-Brain Natriuretic Peptide (12/25/2021 7:46 AM EDT) athologist Signature ProBNP 1,380 (H) <=124 [facility] LABORATORY Specimen Anatomical Collection Method Collection Time Receive d Time (Source) Location / / Volume Laterality Blood 12/25/2021 7:46 AM 8:01 EDT AM EDT Resulting Agency Comment Spec In Lab Zulma Plunkett MD CHEMISTRY ORDERABLES Performing Organization Address City/State/[place] [address] (ABNORMAL) Basic Metabolic Panel (non-fasting) (12/25/2021 7:46 AM EDT) athologist Signature Glucose Lvl 272 (H) 65 - 199 [facility] mg/dL [facility] LABORATORY [...] Organization Address City/State/[place] [address] documented in this encounter Visit Diagnoses Diagnosis Chronic systolic heart failure documented in this encounter Care Teams Military Science Teacher Relationship Specialty Start Date End Date Lovely Vicente MD PCP - General 04/16/[address] [place] [address] documented as of this encounter
--- OUTSIDE RECORDS SUMMARY | 2022-05-08 02:19 | XMS_ITS | Encounter Summary ---
:1945 Author Organization [facility] [place] [address] Care Team Providers Name Role Phone Lovely Vicente MD Primary Care Provider Encounter Details Date Type Department Care Team Description 01/28/2022 Orders Only Equity Structurer Zulma Finch ASCVD (art eriosclerotic [facility] cardiovascular disease) [facility] [place] [address] [place], [place] [phone] (Work) [phone] Social History Tobacco Use Types Packs/Day Years [...] MD [facility] [address] [place] [address] (Wo rk) 05/28/2022 Laboratory Appointment Lab 05/28/2022 Office Visit Cardiology Zulma Dolan MD [facility] [place] [address] Liz Poole PA [facility] [place] [address] 06/10/2022 Office Visit Dermatology Laura Scherer MD [facility] [address] [place], [place] [address] (Wo rk) documented as of this encounter Results (ABNORMAL) Basic Metabolic Panel (non-fasting) (01/30/2022 7:19 AM EDT) athologist Signature Glucose Lvl 237 (H) 65 - 199 [facility] mg/dL [facility] [...] Organization Address City/State/[place] [address] documented in this encounter Visit Diagnoses Diagnosis ASCVD (arteriosclerotic cardiovascular d isease) Unspecified cardiovascular disease documented in this encounter Care Teams Funeral Assistant Relationship Specialty Start Date End Date Lovely Vicente MD PCP - General 04/16/[address] [place] [address] documented as of this encounter
--- OUTSIDE RECORDS SUMMARY | 2022-05-08 02:19 | XMS_ITS | Encounter Summary ---
:1945 Author Organization [facility] [place] [address] Care Team Providers Name Role Phone Lovely Vicente MD Primary Care Provider Encounter Details Date Type Department Care Team Description 12/25/2021 Laboratory Appointment Lab 3L [facility] [place] [phone] Social History Tobacco Use Types Packs/Day Years [...] MD [facility] er [place], [place] [address] (Wo rk) 05/28/2022 Laboratory Appointment Lab 05/28/2022 Office Visit Cardiology Zulma Dolan MD [facility] [address] Liz Poole PA [facility] [place] [address] 06/10/2022 Office Visit Dermatology Laura Scherer MD [facility] [address] [place] [address] (Wo rk) documented as of this encounter [...] Neutr Abs (ANC) 9.37 (H) 1.70 - [facility] 6.10 [facility] x10(3)/[facility] LABORATORY Lymphocytes % 7.1 % [facility] LABORATORY Lymphocytes Abs 0.8 (L) 0.9 - 3.2 [facility] x10(3)/[facility] LABORATORY Monocytes % 8.8 % [facility] LABORATORY Monocyte Abs 1.0 (H) 0.3 - 0.9 [facility] x10(3)/[facility] LABORATORY Eosinophils % 0.4 % [facility] LABORATORY Eosinophils Abs 0.0 0.0 - 0.4 [facility] x10(3)/[facility] LABORATORY Basophils % 0.4 % [facility] LABORATORY Basophils Abs 0.0 0.0 - 0.1 [facility] x10(3)/[facility] LABORATORY Immature Gran % 0.70 % [...] Organization Address City/State/ZIP Code Phon e Number [place] [id number] HOSPITAL LABORATORY Drive (ABNORMAL) Hemogram (12/25/2021 7:46 AM EDT) Analysis Performed At Patho logist Time Signature WBC 11.4 (H) 4.0 - 9.5 [facility] x10(3)/[facility] LABORATORY RBC 4.23 (L) 4.58 - [facility] 5.54 [facility] x10(6)/[facility] LABORATORY Hemoglobin 12.3 (L) 13.7 - [facility] 16.5 g/dL [facility] Hematocrit 37.7 (L) 40.5 - [facility] RYAN 48.5 % [facility] LABORATORY MCV 89.1 82.9 - [facility] RYAN 93.1 [facility] LABORATORY MCH 29.1 27.5 - [place] 32.1 pg [facility] LABORATORY MCHC 32.6 32.0 - [facility] 35.7 g/dL [facility] LABORATORY Platelets 215 145 - 357 [facility] x10(3)/[facility] LABORATORY RDWSD 49.8 (H) 36.0 - [place]AN 45.0 [facility] RDWCV 15.2 (H) 11.4 - [facility] RYAN 13.8 % [facility] LABORATORY MPV 9.2 7.6 - 12.9 [facility] LABORATORY nRBC % Auto 0.0 % [facility] LABORATORY nRBC Abs Auto 0.000 0.000 - [facility] 0.000 [facility] x10(3)/[facility] LABORATORY Specimen Anatomical Collection Method Collection Time Receive d Time (Source) Location / / Volume Laterality Blood 12/25/2021 7:46 AM 8:01 EDT AM EDT Resulting Agency Comment Spec In Lab Liz BROWN HEMATOLOGY ORDERABLES Performing Organization Address City/State/[place] [address] (ABNORMAL) Basic Metabolic Panel (non-fasting) (12/25/2021 7:46 AM EDT) P athologist Signature Glucose Lvl 272 (H) 65 - 199 [facility] mg/dL [facility] LABORATORY Comment: Diabetes: >=200 mg/dL plus symp toms BUN 62 (H) 10 - 20 mg/dL [facility] LABORATORY Creatinine 1.81 (H) 0.80 - 1.50 mg/dL [facility] LABORATORY Sodium 134 (L) 135 - 145 mmol/L [facility] LABORATORY Potassium 4.9 3.5 - 5.0 mmol/L [facility] LABORATORY Calcium 9.4 8.5 - 10.5 mg/dL [facility] LABORATORY Estimated GFR 36 (L) >=60 [...] Plunkett MD CHEMISTRY ORDERABLES Performing Organization Address City/[facility]/ZIP [place] [address] (ABNORMAL) pro-Brain Natriuretic Peptide (12/25/2021 7:46 AM EDT) P athologist Signature ProBNP 1,380 (H) <=124 [facility] pg/mL [facility] LABORATORY Specimen Anatomical Collection Method Collection Time Receive d Time (Source) Location / / Volume Laterality Blood 12/25/2021 7:46 AM 2 8:01 EDT AM EDT Resulting Agency Comment Spec In Lab Zulma Plunkett MD CHEMISTRY ORDERABLES Performing Organization Address City/[facility]/ZIP [facility] [place] [address] documented in this encounter Visit Diagnoses Diagnosis Chronic systolic heart failure documented in this encounter Care Teams Linoleum Tile Layer Relationship Specialty Start Date End Date Lovely Vicente MD PCP - General 04/16/[address] [place] [address] documented as of this encounter
--- OUTSIDE RECORDS SUMMARY | 2022-05-08 02:19 | XMS_ITS | Encounter Summary ---
:1945 Author Organization [facility] [place] [address] Care Team Providers Name Role Phone Lovely Vicente MD Primary Care Provider Encounter Details Date Type Department Care Team Description 12/24/2021 Telephone Public Health at [facility] [place] [place] [address] Social History Tobacco Use Types Packs/Day [...] [facility] [address] [place], [place] [address] (Wo rk) 05/28/2022 Laboratory Appointment Lab 05/28/2022 Office Visit Cardiology Zulma Dolan MD [facility] [place] [address] Liz Poole PA [facility] [place] [address] 06/10/2022 Office Visit Dermatology Laura Scherer MD [facility] ER [address] [place], [place] [address] (Wo rk) documented as of this encounter Visit Diagnoses Not on filedocumented in this encounter Care Teams Optical Scientist Relationship Specialty Start Date End Date Lovely Vicente MD PCP - General 04/16/[address] [place] [address] documented as of this encounter
--- OUTSIDE RECORDS SUMMARY | 2022-05-08 02:19 | XMS_ITS | Encounter Summary ---
:1945 Author Organization [facility] [place] [address] Care Team Providers Name Role Phone Lovely Vicente MD Primary Care Provider Reason for Visit Reason Onset Date Comments Advice Only 01/28/2022 Encounter Details Date Type Department Care Team Description 01/28/2022 Telephone Cardiology [place] [facility] [place]itra Angela, conference [place] [address] Social History Tobacco Use Types Packs/Day [...] assists patient with medications. Number for labor representative scheduling given and she will call them to verify this information Meds reviewed. As per our form from labor representative Eliquis hold for 48 hours prior. Pt [...] Dolan MD [facility] [place], [place] [address] (Wo rk) 05/28/2022 Laboratory Appointment Lab 05/28/2022 Office Visit Cardiology Zulma Dolan MD [facility] [place] [address] Liz Poole PA [facility] [place] [address] 06/10/2022 Office Visit Dermatology Laura Scherer MD [facility] [address] [place], [place] [address] (Wo rk) documented as of this encounter Visit Diagnoses Not on filedocumented in this encounter Care Teams Waste Hand Relationship Specialty Start Date End Date Lovely Vicente MD PCP - General 04/16/[address] [place] [address] documented as of this encounter
--- OUTSIDE RECORDS SUMMARY | 2022-05-08 02:19 | XMS_ITS | Encounter Summary ---
:1945 Author Organization [facility] Address [facility] [place] [address] Care Team Providers Name Role Phone Lovely Vicente MD Primary Care Provider Reason for Visit Auth/Cert Specialty Diagnoses / Procedures Referred By Contact Refer red To Contact Diagnoses ASCVD (arteriosclerotic cardiovascular disease) [I25.10] Vitaliy Nobles MD [facility] Procedures PRO PERC TRLUML CORONARY STENT W/ANGIO ONE ART/BRANCH CARDIAC CATHETERIZATION STENT PLACEMENT-SINGLE MAJOR CORONARY ARTERY OR BRANCH [facility] [place] [address] Referral ID Status Reason Start Date Expiration Date Visits Requ ested Visits Authorized [id number] 1 1 Encounter Details Date Type Department Care Team Description 01/30/2022 Surgery Diesel Truck Mechanic Asa Coulter MD CARDIAC CATHETERIZATION [facility] [place] [address] [place] [address] [phone] (Wo rk) Social History Tobacco Use Types [...] and Clopidogrel. Please follow up with your jointer machine operator in the next 4-6 weeks. We have made a referral to cardiac rehab. Please see the attached instructions regarding care to your right wrist access site. AttachmentsThe following attachments cannot be sent through Care Everywhere. Coronary Angiogram: Post-op (Bhutanese)documented in this encounter Medications at Time of [...] J, RN - 01/30/2022 4:54 PM EDT [facility] Short Stay Unit Discharge Note [...] not included. [facility] [place] [address] CORONARY ANGIOGRAM AND PERCUTANEOUS CORONARY INTERVENTION REPORT Patient: Don Fatima : 1945 MR number: [id number] Date of Service: 01/30/2022 Activity Therapy Teacher: Vitaliy Nobles MD Fellow: KEYON Elizabeth [...] a long 2.0 x 26 mm HARDEEP Mar Lin TUCKER stent and positioned it at the [...] using a 2.0 x 26 mm HARDEEP Mar Lin TUCKER stent. This completes the revascularization ofall [...] MD [facility] [place] [address] [place] [address] (Wo rk) 05/28/2022 Laboratory Appointment Lab 05/28/2022 Office Visit Zulma Garrison MD [facility] [place] [address] Liz Poole PA [facility] [place] [address] 06/10/2022 Office Visit Dermatology Laura Scherer MD [facility] ER [address] [facility] [place] [address] (Wo rk) Scheduled Orders Name Type [...] Neutr Abs (ANC) 3.96 1.70 - [facility] 6.10 [facility] x10(3)/[facility] LABORATORY Lymphocytes % 16.3 % [facility] LABORATORY Lymphocytes Abs 0.9 0.9 - 3.2 [facility] x10(3)/[facility] LABORATORY Monocytes % 10.0 % [facility] LABORATORY Monocyte Abs 0.6 0.3 - 0.9 [facility] x10(3)/[facility] LABORATORY Eosinophils % 0.5 % [facility] LABORATORY Eosinophils Abs 0.0 0.0 - 0.4 [facility] x10(3)/[facility] LABORATORY Basophils % 0.5 % [facility] LABORATORY Basophils Abs 0.0 0.0 - 0.1 [facility] x10(3)/[facility] LABORATORY Immature Gran % 0.90 % [place] [...] City/State/[place] [address] (ABNORMAL) Hemogram (01/30/2022 2:12 PM EDT) Analysis Performed At Patho logist Time Signature WBC 5.5 4.0 - 9.5 [facility] x10(3)/[facility] LABORATORY RBC 4.30 (L) 4.58 - [facility] 5.54 [facility] x10(6)/[facility] LABORATORY Hemoglobin 12.7 (L) 13.7 - [place] 16.5 g/dL [facility] LABORATORY Hematocrit 39.4 (L) 40.5 - [place] 48.5 % [facility] LABORATORY MCV 91.6 82.9 - [place] 93.1 [facility] LABORATORY MCH 29.5 27.5 - [place] 32.1 pg [facility] LABORATORY MCHC 32.2 32.0 - [place] 35.7 g/dL [facility] LABORATORY Platelets 172 145 - 357 [facility] x10(3)/[facility] LABORATORY RDWSD 54.5 (H) 36.0 - [place] 45.0 [facility] LABORATORY RDWCV 16.4 (H) 11.4 - [place] 13.8 % [facility] LABORATORY MPV 9.2 7.6 - 12.9 [place] [facility] LABORATORY nRBC % Auto 0.0 % [facility] LABORATORY nRBC Abs Auto 0.000 0.000 - [place] 0.000 [facility] x10(3)/[facility] LABORATORY Specimen Anatomical Collection Method Collection Time Receive d Time (Source) Location / / Volume Laterality Blood 01/30/2022 2:12 PM 2 2:37 EDT PM EDT Resulting Agency Comment Spec In Lab Eddi Elizabeth Jr., MD HEMATOLOGY ORDERABLES Performing Organization Address City/State/[place] [address] (ABNORMAL) Basic Metabolic Panel (non-fasting) (01/30/2022 2:12 PM EDT) athologist Signature Glucose Lvl 163 65 - 199 [facility] LABORATORY Comment: [...] City/State/[place] [address] POCT Glucose (01/30/2022 1:41 PM EDT) athologist Signature POC Glucose 148 65 - 199 [facility] mg/dL [facility] LABORATORY Comment: Supplemental ranges: <140 mg/dL before meals <180 mg/dL all other times of the day Specimen Anatomical Collection Method Collection Time Receive d Time (Source) Location / / Volume Laterality Blood 01/30/2022 1:41 PM 2 1:41 EDT PM EDT Vitaliy Nobles MD POINT OF CARE TEST ORDERABLE S Performing Organization Address City/[facility]/ZIP Code Phon e Number [address] POCT Glucose (01/30/2022 10:48 AM EDT) P athologist Signature POC Glucose 193 65 - 199 [facility]dL [facility] LABORATORY Comment: Supplemental ranges: <140 mg/dL before meals <180 mg/dL all other times of the day Specimen Anatomical Collection Method Collection Time Receive d Time (Source) Location / / Volume Laterality Blood 01/30/2022 10:48 01/30/2022 AM EDT 10:48 AM EDT Vitaliy Nobles MD POINT OF CARE TEST ORDERABLE S Performing Organization Address [facility] [place] [address] EKG 12 Lead (01/30/2022 10:33 AM EDT) Component Value Ref Range Test Analysis Performed Pathologis t Method Time At Signature Ventricular rate 64 BPM MUSE SYSTEM Atrial Rate 64 BPM MUSE SYSTEM P-R Interval 162 ms MUSE SYSTEM QRS Duration 94 ms MUSE SYSTEM Q-T Interval 422 ms MUSE SYSTEM QTC Calculated 435 ms MUSE SYSTEM (Bezet) Calculated P [place] 41 degrees MUSE SYSTEM Calculated R [place] -27 degrees MUSE SYSTEM Calculated T [place] 104 degrees MUSE SYSTEM INTERPRETATION Normal sinus rhythm MUSE SYSTEM Anterolateral infarct (cited on or before 09-DEC-2021) Abnormal ECG When compared with ECG of 10-DEC-2021 11:17, No significant change was found Confirmed by Gary Perez ([id number]) on 01/30/2022 5:57:5 2 PM Specimen Anatomical Collection Method Collection Time Receive d Time (Source) Location / / Volume Laterality 01/30/2022 10:33 01/30/2022 5:57 AM EDT PM EDT Vitaliy Nobles MD ECG ORDERABLES Performing Organization Address City/[facility]/ZIP Code Phon e Number MUSE SYSTEM CARDIAC CATHETERIZATION (01/30/2022 10:16 AM EDT) Anatomical Region Laterality Modality Other Specimen (Source) Anatomical Location Collection Method / Collectio n Time Received Time / Laterality Volume Narrative 01/30/2022 2:09 PM EDT ?[facility] ? Cardiac Cathete rization/Intervention Report ? Patient Name: Don Fatima. ? Procedure Date: 01/30/2022 ? A #: [id number] ? Primary Physician: Nobles, Vitaliy P ? Case #: [id number] ? File Name: [id number] ? Catheterization Order Number: [id number] ? [facility] ? Final Report [place], [place] ? Patient Name: ? Don E. Stewa rt ? ID#: ?[id number] ? : ?1945 ? Procedure Date: ? [...] guiding catheter an d a 3.[address] ??20 Mhz ?using Manual pullback. ??Imagin [...] A premounted 2.00 x 26 mm Hardeep Mar Lin (TUCKER) ? was deployed wi a maximum [...] Wedelivered along 2.0 x 26 mm HARDEEP Mar Lin ? TUCKER stent and p ositioned it [...] may require ?modification of this regimen. [facility] ?[facility]. ?The 1 [...] using a 2.0 x 26 mm HARDEEP Mar Lin TUCKER stent. ?This completes the revasculariz ation [...] Procedure Note Vitaliy Nobles MD - 03/06/2022 [facility] Cardiac Catheterization/Intervention Re port Patient Name: Don Fatima Procedure Date: 01/30/2022 A #: [id number] Primary Physician: Vitaliy Nobles Case #: [id number] File Name: [id number] Catheterization Order Number: [id number] [facility] Final [place], [place] Patient Name: Don Fatima ID#: [...] was Urgent. The indication for the laboratory manager visit is stable known CAD. [...] 1.5 guiding catheter and a 3.[address] 20 Mhz using Manual pullback. Imaging [...] A premounted 2.00 x 26 mm Hardeep Mar Lin (TUCKER) was deployed with a maximum inflation [...] along 2. 0 x 26 mm HARDEEP Mar Lin TUCKER stent and positioned it at the [...] prior t o arrival in the laboratory manager. Recommended anti-platelet/anti-thrombot ic regimen: Continue [...] using a 2.0 x 26 mm HARDEEP Mar Lin TUCKER stent. This completes the revascularization of [...] Glucose 212 (H) 65 - 199 [facility] mg/dL [facility] LABORATORY Comment: Supplemental ranges: <140 mg/dL before meals <180 mg/dL all other times of the day Specimen Anatomical Collection Method Collection Time Receive d Time (Source) Location / / Volume Laterality Blood 01/30/2022 9:04 AM 2 9:04 EDT AM EDT Vitaliy Nobles MD POINT OF CARE TEST ORDERABLE S Performing Organization Address City/State/[place] [address] (ABNORMAL) POCT Glucose (01/30/2022 8:10 AM EDT) athologist Signature POC Glucose 224 (H) 65 - 199 [facility] mg/dL [facility] LABORATORY Comment: Supplemental ranges: <140 mg/dL before meals <180 mg/dL all other times of the day Specimen Anatomical Collection Method Collection Time Receive d Time (Source) Location / / Volume Laterality Blood 01/30/2022 8:10 AM 2 8:10 EDT AM EDT Vitaliy Nobles MD POINT OF CARE TEST ORDERABLE S Performing Organization Address City/State/[place] [address] documented in this encounter Visit Diagnoses Diagnosis ASCVD (arteriosclerotic cardiovascular d isease) Unspecified cardiovascular disease 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 ASHD (arteriosclerotic heart disease) Coronary atherosclerosis of unspecified type of vessel, [place] or graft ASCVD (arteriosclerotic cardiovascular d isease) Unspecified cardiovascular disease documented in this encounter Admitting Diagnoses Diagnosis CAD (coronary artery disease) Coronary atherosclerosis of unspecified type of vessel, [place] or graft documented in this encounter Administered [...] Given 02/2022 10:11 AM EDT 100 mcg (FIRE OFFICIAL) ONCE PRN, Starting on Wed01/30/22 at 0927, [...] Procedure), Routine niCARdipine (Cardene) (100 mcg/mL) dilution (FIRE OFFICIAL) (CANCELED ) 0927 (Given - Provider: Vitaliy [...] (Intra-Procedure) documented in this encounter Care Teams Facility Supervisor Relationship Specialty Start Date End Date Lovely Vicente MD PCP - General 04/16/[address] [place] [address] documented as of this encounter
--- OUTSIDE RECORDS SUMMARY | 2022-05-08 02:19 | XMS_ITS | Encounter Summary ---
:1945 Author Organization [facility] Address [place] [address] Care Team Providers Name Role Phone Lovely Vicente MD Primary Care Provider Reason for Visit Auth/Cert Specialty Diagnoses / Procedures Referred By Contact Refer red To Contact Diagnoses ASCVD (arteriosclerotic cardiovascular disease) [I25.10] Vitaliy Nobles MD [facility] Procedures PRO PERC TRLUML CORONARY STENT W/ANGIO ONE ART/BRANCH CARDIAC CATHETERIZATION STENT PLACEMENT-SINGLE MAJOR CORONARY ARTERY OR BRANCH [facility] [place] [address] Referral ID Status Reason Start Date Expiration Date Visits Requ ested Visits Authorized [id number] 1 1 Encounter Details Date Type Department Care Team Description 01/30/2022 Hospital Encounter Short Stay Unit at Vitaliy Nobles, CVD (arteriosclerotic cardiovascular disease); Barbara Blue MD 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 Please follow up with your campaign specialist in the next 4-6 weeks. We have made a referral to cardiac rehab. Please see the attached instructions regarding care to your right wrist access site. AttachmentsThe following attachments cannot be sent through Care Everywhere. Coronary Angiogram: Post-op (Turkmen)documented in this encounter Medications at Time of [...] Murray RN - 01/30/2022 4:54 PM EDT [facility] Short Stay Unit Discharge Note All [...] recent PCI presenting for staged PCI to [facility]. The pt states he has [...] recent PCI presenting for staged PCI to [facility]. The indications, expected benefits, and [...] SSU team Don has history of prior [place] and CABG. I had referred him to cardiac rehab at [facility] last month per HF team. He was waiting until this intervention before starting the program. Reviewed managing angina /use of sl nitroglycerin. Given parameters for home exercise. 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 We discussed short walks several times per day. Will send [facility] his discharge summary from this admission. The patient should be contacted by the Program within 1- 2 weeks from discharge. Brief Op Note - Vitaliy Nobles MD - 01/30/2022 10:19 AM EDT Images from the original note were not included. [facility] [place] [address] CORONARY ANGIOGRAM AND PERCUTANEOUS CORONARY INTERVENTION REPORT Patient: Don Fatima : 1945 MR number: [id number] Date of Service: 01/30/2022 Asparagus Cutter: Vitaliy Nobles MD Fellow: KEYON Elizabeth INDICATION: Don Fatiam??is a 76 y.o.??male??with h/o??CAD s/p 3vCABG (THOMPSON- [...] a long 2.0 x 26 mm HARDEEP Marblemount TUCKER stent and positioned it at the [...] using a 2.0 x 26 mm HARDEEP Marblemount TUCKER stent. This completes the revascularization ofall [...] MD [facility] er [place] 0[address] (Wo rk) 05/28/2022 Laboratory Appointment Lab 05/28/2022 Office Visit Cardiology Zulma Dolan MD [facility] [place] [address] Liz Poole PA [facility] [place] [address] 06/10/2022 Office Visit Dermatology Laura Scherer MD [facility] ER DR [address] [place], [place] [address] (Wo rk) Scheduled Orders Name [...] P athologist Signature Neutrophils % 71.8 % [facility] Neutr Abs (ANC) 3.96 1.70 - [facility] 6.10 [facility] x10(3)/[facility] LABORATORY Lymphocytes % 16.3 % [facility] Lymphocytes Abs 0.9 0.9 - 3.2 [facility] x10(3)/[facility] LABORATORY Monocytes % 10.0 % [facility] Monocyte Abs 0.6 0.3 - 0.9 [facility] x10(3)/[facility] LABORATORY Eosinophils % 0.5 % [facility] Eosinophils Abs 0.0 0.0 - 0.4 [facility] x10(3)/[facility] LABORATORY Basophils % 0.5 % [facility] Basophils Abs 0.0 0.0 - 0.1 [facility] x10(3)/[facility] LABORATORY Immature Gran % 0.90 % [facility] Comment: Immature [...] Organization Address City/State/ZIP Code [place] [address] (ABNORMAL) Hemogram (01/30/2022 2:12 PM EDT) Analysis Performed At Patho logist Time Signature WBC 5.5 4.0 - 9.5 [facility] x10(3)/[facility] LABORATORY RBC 4.30 (L) 4.58 - [place] 5.54 [facility] x10(6)/[facility] LABORATORY Hemoglobin 12.7 (L) 13.7 - [place] 16.5 g/dL [facility] Hematocrit 39.4 (L) 40.5 - [place] 48.5 % [facility] MCV 91.6 82.9 - [facility] [address] [facility] LABORATORY MCH 29.5 27.5 - [place]HA[place] 32.1 pg [facility] MCHC 32.2 32.0 - [place] 35.7 g/dL [facility] Platelets 172 145 - 357 [facility] x10(3)/[facility] LABORATORY RDWSD 54.5 (H) 36.0 - [facility] [address] [facility] LABORATORY RDWCV 16.4 (H) 11.4 - [facility] 13.8 % [facility] MPV 9.2 7.6 - 12.9 [facility] LABORATORY nRBC % Auto 0.0 % [facility] nRBC Abs Auto 0.000 0.000 - [facility] 0.000 [facility] x10(3)/[facility] LABORATORY Specimen Anatomical Collection Method Collection Time Receive d Time (Source) Location / / Volume Laterality Blood 01/30/2022 2:12 PM 2 2:37 EDT PM EDT Resulting Agency Comment Spec In Lab Eddi Elizabeth Jr., MD HEMATOLOGY ORDERABLES Performing Organization Address City/State/ZIP [place] [address] (ABNORMAL) Basic Metabolic Panel (non-fasting) (01/30/2022 2:12 PM EDT) P athologist Signature Glucose Lvl 163 65 - 199 [facility] mg/dL [facility] Comment: Diabetes: >=200 mg/dL plus symp toms BUN 30 (H) 10 - 20 mg/dL [facility] LABORATORY Creatinine 1.47 0.80 - 1.50 mg/dL [facility] OCK [facility] Sodium 140 135 - 145 mmol/L [...] Organization Address City/State/ZIP [place] [address] POCT Glucose (01/30/2022 1:41 PM EDT) athologist Signature POC Glucose 148 65 - 199 [facility] mg/dL [facility] Comment: Supplemental ranges: <140 mg/dL before meals <180 mg/dL all other times of the day Specimen Anatomical Collection Method Collection Time Receive d Time (Source) Location / / Volume Laterality Blood 01/30/2022 1:41 PM 1:41 EDT PM EDT Vitaliy Sandra Nobles MD POINT OF CARE TEST ORDERABLE S Performing Organization Address City/[facility]/ZIP Code Phon e Number [address] POCT Glucose (01/30/2022 10:48 AM EDT) P athologist Signature POC Glucose 193 65 - 199 [facility] mg/dL [facility] Comment: Supplemental ranges: <140 mg/dL before meals <180 mg/dL all other times of the day Specimen Anatomical Collection Method Collection Time Receive d Time (Source) Location / / Volume Laterality Blood 01/30/2022 10:48 01/30/2022 AM EDT 10:48 AM EDT Vitaliy Sandra Nobles MD POINT OF CARE TEST ORDERABLE S Performing Organization Address [facility] [place] [address] EKG 12 Lead (01/30/2022 10:33 AM EDT) Component Value Ref Range Test Analysis Performed Pathologis t Method Time At Signature Ventricular rate 64 BPM MUSE SYSTEM Atrial Rate 64 BPM MUSE SYSTEM P-R Interval 162 ms MUSE SYSTEM QRS Duration 94 ms MUSE SYSTEM Q-T Interval 422 ms MUSE SYSTEM QTC Calculated 435 ms MUSE SYSTEM (Bezet) Calculated P Tower 41 degrees MUSE SYSTEM Calculated R Tower -27 degrees MUSE SYSTEM Calculated T Tower 104 degrees MUSE SYSTEM INTERPRETATION Normal sinus rhythm MUSE SYSTEM Anterolateral infarct (cited on or before 09-DEC-2021) Abnormal ECG When compared with ECG of 10-DEC-2021 11:17, No significant change was found Confirmed by Gary Perez ([id number]) on 01/30/2022 5:57:5 2 PM Specimen Anatomical [...] EDT ?[facility] ? Cardiac Cathete rization/Intervention Report ? Patient Name: Don Fatima. ? Procedure Date: 01/30/2022 ? A #: [id number] ? Primary Physician: Nobles, Vitaliy P ? Case #: [id number] ? File Name: [id number] ? Catheterization Order Number: [id number] ? [facility] ? Final Report [place], [place] ? Patient Name: ? Don Mccollum. Stewa rt ? ID#: ?[id number] ? : ?1945 ? Procedure Date: ? [...] ?designated as ASA Class III. Th e [facility] clinical frailty scale is 5: [...] Urgent. The indication for ?the labor relations worker visit is stable kn own CAD. [...] guiding catheter an d a 3.5 Fr [facility] [place] [address] ??20 Mhz ?using Manual pullback. ??Imagin [...] A premounted 2.00 x 26 mm Hardeep Marblemount (TUCKER) ? was deployed wi a maximum [...] Wedelivered along 2.0 x 26 mm HARDEEP Marblemount ? TUCKER stent and p ositioned it [...] prior to arrival in the labor relations worker. ?Recommended anti-platelet/anti- thrombotic regimen: ?Continue aspirin [...] using a 2.0 x 26 mm HARDEEP Marblemount TUCKER stent. ?This completes the revasculariz ation [...] Don Fatima Procedure Date: 01/30/2022 A #: [id number] Primary Physician: Vitaliy Nobles Case #: [id number] File Name: [id number] Catheterization Order Number: [id number] [facility] Final Report [place], [place] Patient Name: Don Fatima ID#: [...] Urgent. The indication for the labor relations worker visit is stable known CAD. Chest [...] 1.5 guiding catheter and a 3.5 Fr [facility] [place] [address] 20 Mhz using Manual pullback. Imaging [...] atmospheres. A premounted 2.00 x 26 mm [place] Marblemount (TUCKER) was deployed with a maximum inflation [...] along 2. 0 x 26 mm HARDEEP Marblemount TUCKER stent and positioned it at the [...] t o arrival in the labor relations worker. Recommended anti-platelet/anti-thrombot ic regimen: Continue aspirin [...] using a 2.0 x 26 mm HARDEEP Marblemount TUCKER stent. This completes the revascularization of [...] 212 (H) 65 - 199 [facility] mg/dL [facility] Comment: Supplemental ranges: <140 mg/dL before meals <180 mg/dL all other times of the day Specimen Anatomical Collection Method Collection Time Receive d Time (Source) Location / / Volume Laterality Blood 01/30/2022 9:04 AM 2 9:04 EDT AM EDT Vitaliy Nobles MD POINT OF CARE TEST ORDERABLE S Performing Organization Address City/State/[place] [address] (ABNORMAL) POCT Glucose (01/30/2022 8:10 AM EDT) athologist Signature POC Glucose 224 (H) 65 - 199 [facility] mg/dL [facility] Comment: Supplemental ranges: <140 mg/dL before meals <180 mg/dL all other times of the day Specimen Anatomical Collection Method Collection Time Receive d Time (Source) Location / / Volume Laterality Blood 01/30/2022 8:10 AM 2 8:10 EDT AM EDT Vitaliy Nobles MD POINT OF CARE TEST ORDERABLE S Performing Organization Address City/State/[place] [address] documented in this encounter Visit Diagnoses Diagnosis ASCVD (arteriosclerotic cardiovascular d isease) Unspecified cardiovascular disease 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 ASHD (arteriosclerotic heart disease) Coronary atherosclerosis of unspecified type of vessel, [place] or graft ASCVD (arteriosclerotic cardiovascular d isease) Unspecified cardiovascular disease documented in this encounter Admitting Diagnoses Diagnosis CAD (coronary artery disease) Coronary atherosclerosis of unspecified type of vessel, [place] or graft documented in this encounter Administered [...] Procedure), Routine niCARdipine (Cardene) (100 mcg/mL) dilution (TREAD BOOKER) (CANCELED ) 0927 (Given - Provider: Vitaliy [...] (Intra-Procedure) documented in this encounter Care Teams Air Brush Decorator Relationship Specialty Start Date End Date Lovely Vicente MD PCP - General 04/16/[address] [place] [address] documented as of this encounter
--- OUTSIDE RECORDS SUMMARY | 2022-05-08 02:19 | XMS_ITS | Encounter Summary ---
:1945 [place] [address] Care Team Providers Name Role Phone Lovely Vicente MD Primary Care Provider Encounter Details Date Type Department Care Team Description 12/30/2021 Notes Only [facility] [place] [address] Social History Tobacco Use Types Packs/Day [...] Failure team. DX: HFrEF. Referral placed to [facility] documented in this encounter Plan of Treatment Upcoming Encounters Date Type Specialty Care Team Description 05/28/2022 Appointment Cardiology Zulma Dolan MD [facility] [place] [address] (Wo rk) 05/28/2022 Laboratory Appointment Lab 05/28/2022 Office Visit Cardiology Zulma Dolan MD [facility] [place] [address] Liz Poole PA [facility] [place] [address] 06/10/2022 Office Visit Dermatology Laura Scherer MD [facility] ER [address] [place], [place] 0[address] (Wo rk) documented as of this encounter Visit Diagnoses Not on filedocumented in this encounter Care Teams Portable Canteen Operator Relationship Specialty Start Date End Date Lovely Vicente MD PCP - General 04/16/[address] [place] [address] documented as of this encounter
--- OUTSIDE RECORDS SUMMARY | 2022-05-08 02:19 | XMS_ITS | Encounter Summary ---
:1945 Author Organization [facility] [place] [address] Care Team Providers Name Role Phone Lovely Vicente MD Primary Care Provider Encounter Details Date Type Department Care Team Description 12/12/2021 Telephone Cardiology at [facility] [place] [address] Social History Tobacco Use Types Packs/Day [...] - 12/12/2021 11:36 AM EDT RTC to [employer] regarding pharmacists questions as to whether the Torsemide can be dispensed as 2, 20 mg, tablets, as they have to order Torsemide 40 mg tablets. Pended prescription in refill request. Barbara Mera (Jodie), VAMSI, BSN [facility] documented in this encounter Plan of Treatment Upcoming Encounters Date Type Specialty Care Team Description 05/28/2022 Appointment Cardiology Zulma Dolan MD [facility] [address] [place] 0375 (Wo rk) 05/28/2022 Laboratory Appointment Lab 05/28/2022 Office Visit Cardiology Zulma Dolan MD [facility] [place] [address] Liz Poole PA [facility] [place] [address] 06/10/2022 Office Visit Dermatology Laura Scherer MD [facility] DR [address] [place], [place] 0[address] (Wo rk) documented as of this encounter Visit Diagnoses Not on filedocumented in this encounter Care Teams Fan Installer Relationship Specialty Start Date End Date Lovely Vicente MD PCP - General 04/16/[address] [place] [address] documented as of this encounter
--- OUTSIDE RECORDS SUMMARY | 2022-05-08 02:19 | XMS_ITS | Encounter Summary ---
:1945 Author Organization [facility] [place] [address] Care Team Providers Name Role Phone Lovely Vicente MD Primary Care Provider Reason for Referral Diagnostic Test (Routine) - Authorized Specialty Diagnoses / Procedures Referred By Contact Refer red To Contact Cardiology Diagnoses Chronic systolic heart failure Liz Carrera PA [facility] Non-Inv Card Lab Procedures Echocardiogram Transthoracic [facility] [place] [address] [place] [address] Fax: Referral ID Status Reason Start Expiration Visits Visits Date Date Requested Authorized [id number] Authorized Specialty 02/19/2022 02/19/2023 1 1 Service Requested Encounter Details Date Type Department Care Team Description 02/19/2022 Office [address]iology at [facility] Liz Carrera, Chronic systolic heart [facility] [place] [address] Cardiology Dept [phone] [place], [place] [address] Social History Tobacco Use [...] [facility] 12[facility]08[facility], [facility] [...] mg PO daily in place of Lasix. Fidelity is new for him and he will [...] regurgitation present. 07/07/2019 - 07/21/2019 Zio Patch Fried Cake Maker The patient had a minimum heart [...] 12.5 mg daily 6. Post-op atrial fibrillation [id number] 7 (CHF, HTN, DM, vascular disease, thromboembolism) [...] Zulma Dolan MD [facility] [place], [place] 0[address] (Wo rk) 05/28/2022 Laboratory Appointment Lab 05/28/2022 Office Visit Cardiology Zulma Dolan MD [facility] [place] [address] Liz Carrera PA [facility] [place] [address] 06/10/2022 Office Visit Dermatology Laura Scherer MD [facility] DR [address] [place], [place] 0375 (Wo rk) Scheduled Orders Name [...] Organization Address City/State/ZIP Code Phon e Number [place] [id number] LAB[address] (ABNORMAL) pro-Brain Natriuretic Peptide [...] Organization Address City/State/[place] [address] documented in this encounter Visit Diagnoses Diagnosis Chronic systolic heart failure documented in this encounter Care Teams District Branch Manager Relationship Specialty Start Date End Date Lovely Vicente MD PCP - General 04/16/[address] [place] [address] documented as of this encounter
--- OUTSIDE RECORDS SUMMARY | 2022-05-08 02:19 | XMS_ITS | Encounter Summary ---
:1945 Author Organization [facility] [place] [address] Care Team Providers Name Role Phone Lovely Vicente MD Primary Care Provider Reason for Visit Reason Onset Date Comments Medication Refill 12/12/2021 Torsemide Encounter Details Date Type Department Care Team Description 12/12/2021 Refill Cardiology at [facility] Janneth Padilla, Medication Refill [facility] STEPHANIE (Torsemide) [place] [address] CARDIOLOGY DEPT. [place], [place] [address] (Wo rk) Social History Tobacco [...] [facility] er [place], [place] [address] (Wo rk) 05/28/2022 Laboratory Appointment Lab 05/28/2022 Office Visit Cardiology Zulma Dolan MD [facility] [place] [address] Liz Poole PA [facility] [place] [address] 06/10/2022 Office Visit Dermatology Laura Scherer MD [facility] ER DR [address] [place], [place] [address] (Wo rk) documented as of this encounter Visit Diagnoses Diagnosis Chronic systolic heart failure documented in this encounter Care Teams Apron Trimmer Relationship Specialty Start Date End Date Lovely Vicente MD PCP - General 04/16/[address] [place] [address] documented as of this encounter
--- OUTSIDE RECORDS SUMMARY | 2022-05-08 02:19 | XMS_ITS | Encounter Summary ---
:1945 Author Organization [facility] [place] [address] Care Team Providers Name Role Phone Lovely Vicente MD Primary Care Provider Encounter Details Date Type Department Care Team Description 12/15/2021 Telephone Cardiology at [facility] Barbara Mera, [place] [address] Social History Tobacco Use Types Packs/Day [...] Cardiology Zulma Dolan MD [facility] [place], [place] [address] (Wo rk) 05/28/2022 Laboratory Appointment Lab 05/28/2022 Office Visit Cardiology Zulma Dolan MD [facility] [place] [address] Liz Poole PA [facility] [place] [address] 06/10/2022 Office Visit Dermatology Laura Scherer MD [facility] DR [address] [place], [place] 0[address] (Wo rk) documented as of this encounter Visit Diagnoses Not on filedocumented in this encounter Care Teams Transport Assistant Relationship Specialty Start Date End Date Lovely Vicente MD PCP - General 04/16/15 [employer] [address] [place] [address] documented as of this encounter
--- OUTSIDE RECORDS SUMMARY | 2022-05-08 02:19 | XMS_ITS | Encounter Summary ---
:1945 Author Organization [place] [address] Care Team Providers Name Role Phone Lovely Vicente MD Primary Care Provider Reason for Visit Auth/Cert Specialty Diagnoses / Procedures Referred By Contact Refer red To Contact Diagnoses ASCVD (arteriosclerotic cardiovascular disease) [I25.10] Vitaliy Nobles MD [facility] Procedures PRO PERC TRLUML CORONARY STENT W/ANGIO ONE ART/BRANCH CARDIAC CATHETERIZATION STENT PLACEMENT-SINGLE MAJOR CORONARY ARTERY OR BRANCH [facility] [place] [address] Referral ID Status Reason Start Date Expiration Date Visits Requ ested Visits Authorized [id number] 1 1 Encounter Details Date Type Department Care Team Description 01/30/2022 Laboratory Lab 3L Katalina ASCVD (arterios clerotic Appointment [facility] cardiovas [place]ular [place] [address] Social History Tobacco Use Types Packs/Day Years [...] Zulma Dolan MD [facility] [place], [place] [address] (Wo rk) 05/28/2022 Laboratory Appointment Lab 05/28/2022 Office Visit Cardiology Zulma Dolan MD [facility] [place] [address] Liz Poole PA [facility] [place] [address] 06/10/2022 Office Visit Dermatology Laura Scherer MD [facility] [address] TE[address] GR[address]DERMAT [place], [place] [address] (Wo rk) documented as of [...] (ABNORMAL) Differential, Automated (01/30/2022 7:19 AM EDT) [facility] gist Method Time Signature Neutrophils % 77.9 % [facility] Neutr Abs (ANC) 5.31 1.70 - [facility] 6.10 [facility] x10(3)/[facility] LABORATORY Lymphocytes % 12.0 % [facility] Lymphocytes Abs 0.8 (L) 0.9 - 3.2 [facility] x10(3)/[facility] LABORATORY Monocytes % 8.1 % [facility] Monocyte Abs 0.6 0.3 - 0.9 [facility] x10(3)/[facility] LABORATORY Eosinophils % 0.4 % [facility] Eosinophils Abs 0.0 0.0 - 0.4 [facility] x10(3)/[facility] LABORATORY Basophils % 0.6 % [facility] Basophils Abs 0.0 0.0 - 0.1 [facility] x10(3)/[facility] LABORATORY Immature Gran % 1.00 [...] Organization Address City/State/[place] [address] (ABNORMAL) Hemogram (01/30/2022 7:19 AM EDT) Analysis Performed At Patho logist Time Signature WBC 6.8 4.0 - 9.5 [facility] x10(3)/[facility] LABORATORY RBC 4.32 (L) 4.58 - [facility] 5.54 [facility] x10(6)/[facility] LABORATORY Hemoglobin 13.0 (L) 13.7 - [facility] 16.5 g/dL [facility] Hematocrit 39.8 (L) 40.5 - [facility] 48.5 % [facility] MCV 92.1 82.9 - [facility] 93.1 fL [facility] MCH 30.1 27.5 - [facility] 32.1 pg [facility] MCHC 32.7 32.0 - [place] RYAN 35.7 g/dL [facility] Platelets 172 145 - 357 [facility] x10(3)/[facility] LABORATORY RDWSD 54.5 (H) 36.0 - [place] RYAN 45.0 [facility] LABORATORY RDWCV 16.2 (H) 11.4 - [facility] 13.8 % [facility] MPV 9.0 7.6 - 12.9 [facility] LABORATORY nRBC % Auto 0.0 % [facility] nRBC Abs Auto 0.000 0.000 - [facility] 0.000 [facility] x10(3)/[facility] LABORATORY Specimen Anatomical Collection Method Collection Time Receive d Time (Source) Location / / Volume Laterality Blood 01/30/2022 7:19 AM 7:21 EDT AM EDT Resulting Agency Comment Spec In Lab Zulma BROWN HEMATOLOGY ORDERABLES Performing Organization Address City/State/[place] [address] (ABNORMAL) Basic Metabolic Panel (non-fasting) (01/30/2022 7:19 AM EDT) P athologist Signature Glucose Lvl 237 (H) 65 - 199 [facility] mg/dL [facility] LABORATORY [...] City/State/ZIP Code Phon e Number [place] [id number] HOSPITAL LAB[address] documented in this encounter Visit Diagnoses Diagnosis ASCVD (arteriosclerotic cardiovascular d isease) Unspecified cardiovascular disease documented in this encounter Care Teams Adjunct Professor Of Voice Relationship Specialty Start Date End Date Lovely Vicente MD PCP - General 04/16/[address] [place] [address] documented as of this encounter
--- OUTSIDE RECORDS SUMMARY | 2022-05-08 02:19 | XMS_ITS | Encounter Summary ---
:1945 Author Organization [facility] [place] [address] Care Team Providers Name Role Phone Lovely Vicente MD Primary Care Provider Encounter Details Date Type Department Care Team Description 02/19/2022 Laboratory Appointment Lab 3L [facility] [place] [id number] Social History Tobacco Use Types Packs/Day Years [...] Dolan MD [facility] [place] [address] (Wo rk) 05/28/2022 Laboratory Appointment Lab 05/28/2022 Office Visit Cardiology Zulma Dolan MD [facility] [place] [address] Liz Poole PA [facility] [place] [address] 06/10/2022 Office Visit Dermatology Laura Scherer MD [facility] [address] [place] [address] (Wo rk) documented as of this encounter [...] (ABNORMAL) Differential, Automated (02/19/2022 8:06 AM EDT) [facility] gist Method Time Signature Neutrophils % 76.0 % [facility] Neutr Abs (ANC) 5.49 1.70 - [facility] 6.10 [facility] x10(3)/[facility] LABORATORY Lymphocytes % 10.8 % [facility] Lymphocytes Abs 0.8 (L) 0.9 - 3.2 [facility] x10(3)/[facility] LABORATORY Monocytes % 10.2 % [facility] Monocyte Abs 0.7 0.3 - 0.9 [facility] x10(3)/[facility] LABORATORY Eosinophils % 1.2 % [facility] Eosinophils Abs 0.1 0.0 - 0.4 [facility] x10(3)/[facility] LABORATORY Basophils % 0.8 % [facility] Basophils Abs 0.1 0.0 - 0.1 [facility] x10(3)/[facility] LABORATORY Immature Gran % 1.00 % [facility]BS [...] Organization Address City/State/[place] [address] (ABNORMAL) Hemogram (02/19/2022 8:06 AM EDT) Analysis Performed At Patho logist Time Signature WBC 7.2 4.0 - 9.5 [facility] x10(3)/[facility] LABORATORY RBC 4.41 (L) 4.58 - [facility] 5.54 [facility] x10(6)/[facility] LABORATORY Hemoglobin 13.2 (L) 13.7 - [facility] 16.[facility] g/dL [facility] Hematocrit 40.9 40.5 - [facility] 48.5 % [facility] MCV 92.7 82.9 - [facility] 93.1 [facility] LABORATORY MCH 29.9 27.5 - [facility] 32.1 pg [facility] MCHC 32.3 32.0 - [facility] 35.7 g/dL [facility] Platelets 191 145 - 357 [facility] x10(3)/[facility] LABORATORY RDWSD 53.6 (H) 36.0 - [facility] 45.0 [facility] LABORATORY RDWCV 15.6 (H) 11.4 - [facility] 13.8 % [facility] MPV 8.7 7.6 - 12.9 [facility] LABORATORY nRBC % Auto 0.0 % [facility] nRBC Abs Auto 0.000 0.000 - [facility] 0.000 [facility] x10(3)/[facility] LABORATORY Specimen Anatomical Collection Method Collection Time Receive d Time (Source) Location / / Volume Laterality Blood 02/19/2022 8:06 AM 2 8:09 EDT AM EDT Resulting Agency Comment Spec In Lab Liz BROWN HEMATOLOGY ORDERABLES Performing Organization Address City/[facility]/[place] [address] (ABNORMAL) pro-Brain Natriuretic Peptide [...] Address City/State/[place] [address] (ABNORMAL) Basic Metabolic Panel (non-fasting) (02/19/2022 8:06 AM EDT) P athologist Signature Glucose Lvl 139 65 - 199 [facility] mg/dL [facility] LABORATORY [...] Organization Address City/State/[place] [address] documented in this encounter Visit Diagnoses Diagnosis Chronic systolic heart failure documented in this encounter Care Teams Lens Blocker Relationship Specialty Start Date End Date Lovely Vicente MD PCP - General 04/16/[address] [place] [address] documented as of this encounter
--- OUTSIDE RECORDS SUMMARY | 2022-05-08 02:19 | XMS_ITS | Encounter Summary ---
:[address] [facility] [place] [address] Care Team Providers Name Role Phone Lovely Vicente MD Primary Care Provider Encounter Details Date Type Department Care Team Description 12/24/2021 Orders Only Press Supervisor Zulma Finch ASCVD (art eriosclerotic [facility] cardiovascular disease) [facility] [place] [address] [place], [place] [phone] (Work) [phone] Social History Tobacco Use Types Packs/Day Years [...] MD [facility] [address] [place] [address] (Wo rk) 05/28/2022 Laboratory Appointment Lab 05/28/2022 Office Visit Cardiology Zulma Dolan MD [facility] [place] [address] Liz Poole PA [facility] [place] [address] 06/10/2022 Office Visit Dermatology Laura Scherer MD [facility] DR [address] [place], [place] [address] (Wo rk) documented as of this encounter Visit Diagnoses Diagnosis ASCVD (arteriosclerotic cardiovascular d isease) Unspecified cardiovascular disease documented in this encounter Care Teams Air Bag Buffer Relationship Specialty Start Date End Date Lovely Vicente MD PCP - General 04/16/[address] [place] [address] documented as of this encounter
--- OUTSIDE RECORDS SUMMARY | 2022-05-08 02:20 | XMS_ITS | Encounter Summary ---
:1945 Author Organization [facility] [place] [address] Care Team Providers Name Role Phone Lovely Vicente MD Primary Care Provider Encounter Details Date Type Department Care Team Description 03/20/2021 Ancillary Procedure Radiology Library [place] [address] [place] [address] [phone] Social History Tobacco Use Types Packs/Day Years [...] MD [facility] [place], [place] [address] (Wo rk) 05/28/2022 Laboratory Appointment Lab 05/28/2022 Office Visit Cardiology Zulma Dolan [place] [address] Liz Poole PA [facility] [place] [address] 06/10/2022 Office Visit Dermatology Laura Scherer MD [facility] ER DR [address] [place], [place] [address] (Wo rk) documented as [...] Address City/State/ZIP Code Phon e Number [place], [place] documented in this encounter Visit Diagnoses Not on filedocumented in this encounter Care Teams Steam Finisher Relationship Specialty Start Date End Date Lovely Vicente MD PCP - General 04/16/[address] [place] [address] documented as of this encounter
--- OUTSIDE RECORDS SUMMARY | 2022-05-08 02:20 | XMS_ITS | Encounter Summary ---
:1945 [place] [address] Care Team Providers Name Role Phone Lovely Vicente MD Primary Care Provider Reason for Visit Reason Comments Skin Cancer Examination Encounter Details Date Type Department Care Team Description 03/20/2021 Office Visit Dermatology at [facility] Brennen Rene MD History of melanoma; [facility] History of dysplastic nevus; [address] Multiple benign nevi; [place] [address] [facility] [place] (seborrheic keratosis); [phone] [address]-DERMATOLOGY [place] (actinic keratosis) [place], [place] [address] Social History Tobacco Use Types [...] no SOCIAL HISTORY 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 Last visit at [facility] Derm: 01/02/2020 Medications: Reviewed in [...] and signed by: LAURA RENE MD Dermatology [facility] documented in this encounter Plan of Treatment Upcoming Encounters Date Type Specialty Care Team Description 05/28/2022 Appointment Cardiology TrudiZulma Knowles MD [facility] [place], [place] [address] (Wo rk) 05/28/2022 Laboratory Appointment Lab 05/28/2022 Office Visit Cardiology Zulma Dolan MD [facility] [place] [address] Liz Poole PA [facility] [place] [address] 06/10/2022 Office Visit Dermatology Laura Rene MD [facility] DR [address]DERMAT [place], [...] keratosis documented in this encounter Care Teams Lighter Relationship Specialty Start Date End Date Lovely Vicente MD PCP - General 04/16/[address] [place] [address] documented as of this encounter
--- OUTSIDE RECORDS SUMMARY | 2022-05-08 02:20 | XMS_ITS | Encounter Summary ---
:1945 Author Organization [facility] [place] [address] Care Team Providers Name Role Phone Lovely Vicente MD Primary Care Provider Encounter Details Date Type Department Care Team Description 11/07/2019 TH Visit Cardiology at [facility] Danette Maxwell (arteriosclerotic heart disease); (TeleHealth) [facility] STACIE Gomes Cardiomyopathy, ischemic; Drive [facility] S/P CABG x 3; [place], [place] MARIA VICTORIA (obstructive sleep apnea) on CPAP [phone] CARDIOLOGY [phone] [place], [place] [address] Social History Tobacco Use Types [...] 72 year old male w/ a h/o MAIRA VICTORIA (not using CPAP), DM2, COPD, HTN, [...] regurgitation present. 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 Post-op atrial fibrillation [id number] (CHF, HTN, DM, vascular disease, thromboembolism) [...] Zulma Dolan MD [facility] [place], [place] [address] (Wo rk) 05/28/2022 Laboratory Appointment Lab 05/28/2022 Office Visit Cardiology Zulma Dolan MD [facility] [place] [address] Liz Poole PA [facility] [place] [address] 06/10/2022 Office Visit Dermatology Laura Scherer MD [facility] DR [address] [place], [place] [address] (Wo rk) documented as of this encounter Visit Diagnoses Diagnosis ASHD (arteriosclerotic heart disease) Coronary atherosclerosis of unspecified type of vessel, atka or graft Cardiomyopathy, ischemic Other specified forms of chronic ischemi c heart disease S/P CABG x 3 Postsurgical aortocoronary bypass status MARIA VICTORIA (obstructive sleep apnea) on CPAP Obstructive sleep apnea (adult) (pediatr ic) documented in this encounter Care Teams Stuffed Casing Tier Relationship Specialty Start Date End Date Lovely Vicente MD PCP - General 04/16/[address] [place], [place] [address] documented as of this encounter
--- OUTSIDE RECORDS SUMMARY | 2022-05-08 02:20 | XMS_ITS | Encounter Summary ---
:1945 [place] [address] Care Team Providers Name Role Phone Lovely Vicente MD Primary Care Provider Encounter Details Date Type Department Care Team Description 04/16/2021 Office [address] [facility] Liz Poole, Chronic systolic heart [facility] [place] [address] Cardiology Dept [phone] [place], [place] [address] Social History Tobacco Use Types [...] good. 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 Post-op atrial fibrillation [id number] (CHF, HTN, DM, vascular disease, thromboembolism) On warfarin - recent labile INR Will discuss with PCP, option of Luis Daniel 7. PAD 08/06/2017: Right 1st, 2nd, 3rd toe amputation 08/11/2017: Left??femoral arterial access, RLE??angiogram, Balloon angioplasty of R PT 10/25/2017: right popliteal-pedal bypass at [facility] 8. Hypothyrodism S/p thyroidectomy for [...] Cardiology Zulma Dolan MD [facility] [place], [place] [address] (Wo rk) 05/28/2022 Laboratory Appointment Lab 05/28/2022 Office Visit Cardiology Zulma Dolan MD [facility] [place] [address] Liz Poole PA [facility] [place] [address] 06/10/2022 Office Visit Dermatology Laura Scherer MD [facility] DR [address]MAT [place], [place] [address] (Wo rk) documented as of this encounter Results (ABNORMAL) Basic Metabolic Panel (non-fasting) (04/16/2021 9:58 AM EDT) athologist Signature Glucose Lvl 77 65 - 199 [facility] mg/dL [facility] Comment: Diabetes: [...] Organization Address City/State/[place] [address] (ABNORMAL) pro-Brain Natriuretic Peptide [...] Organization Address City/State/[place] [address] documented in this encounter Visit Diagnoses Diagnosis Chronic systolic heart failure documented in this encounter Care Teams Unix Manager Relationship Specialty Start Date End Date Lovely Vicente MD PCP - General 04/16/[address] [place] [address] documented as of this encounter
--- OUTSIDE RECORDS SUMMARY | 2022-05-08 02:20 | XMS_ITS | Encounter Summary ---
:1945 [place] [address] Care Team Providers Name Role Phone Lovely Vicente MD Primary Care Provider Encounter Details Date Type Department Care Team Description 12/07/2021 Ancillary Procedure [facility] Lovely murillo MD [facility] [address] [address] [place], [place] [phone] (Wo lissa) [address] [phone] Social History Tobacco Use Types Packs/Day Years [...] Zulma Dolan MD [facility] [address] [place] [address] (Wo rk) 05/28/2022 Laboratory Appointment Lab 05/28/2022 Office Visit Cardiology Zulma Dolan MD [place] [address] Liz Poole PA [facility] [place] [address] 06/10/2022 Office Visit Dermatology Laura Scherer MD [facility] DR [address] [place], [place] [address] (Wo [...] Organization Address City/State/ZIP Code Phon e Number [place], [place] documented in this encounter Visit Diagnoses Not on filedocumented in this encounter Care Teams Tissue Rewinder Relationship Specialty Start Date End Date Lovely Vicente MD PCP - General 04/16/[address] [place] [address] documented as of this encounter
--- OUTSIDE RECORDS SUMMARY | 2022-05-08 02:20 | XMS_ITS | Encounter Summary ---
:1945 Author Organization [facility] [place] [address] Care Team Providers Name Role Phone Lovely Vicente MD Primary Care Provider Encounter Details Date Type Department Care Team Description 02/19/2020 Telephone Dermatology at [facility] Ariana Wilder LPN [address] [place] [address] Social History Tobacco Use Types Packs/Day [...] Cardiology Zulma Dolan MD [facility] [place], [place] [address] (Wo rk) 05/28/2022 Laboratory Appointment Lab 05/28/2022 Office Visit Cardiology Zulma Dolan MD [facility] [place] [address] Liz Poole PA [facility] [place] [address] 06/10/2022 Office Visit Dermatology Laura Scherer MD [facility] DR [address] [place], [place] [address] (Wo rk) documented as of this encounter Visit Diagnoses Not on filedocumented in this encounter Care Teams Baggage Smasher Relationship Specialty Start Date End Date Lovely Vicente MD PCP - General 04/16/[address] [place] [address] documented as of this encounter
--- OUTSIDE RECORDS SUMMARY | 2022-05-08 02:20 | XMS_ITS | Encounter Summary ---
:1945 Author Organization [facility] [place] [address] Care Team Providers Name Role Phone Lovely Vicente MD Primary Care Provider Encounter Details Date Type Department Care Team Description 12/07/2021 External Results Administration [facility] [place] [address] Social History Tobacco Use Types Packs/Day [...] [facility] er [facility] [place] [address] (Wo rk) 05/28/2022 Laboratory Appointment Lab 05/28/2022 Office Visit Cardiology Zulma Dolan MD [facility] [place] [address] Liz Poole PA [facility] [place] [address] 06/10/2022 Office Visit Dermatology Laura Scherer MD [facility] ER DR [address] [place], [place] 037 (Wo rk) documented as of [...] on filedocumented in this encounter Care Teams Med Care Manager Relationship Specialty Start Date End Date Lovely Vicente MD PCP - General 04/16/[address] [place] [address] documented as of this encounter
--- OUTSIDE RECORDS SUMMARY | 2022-05-08 02:20 | XMS_ITS | Encounter Summary ---
:1945 Author Organization [facility] [place] [address] Care Team Providers Name Role Phone Lovely Vicente MD Primary Care Provider Reason for Referral Consultation (Routine) - Closed Specialty Diagnoses / Referred By Contact Referred To Contact Procedures Cardiac Rehabilitation Diagnoses Acute HFrEF (heart failure with reduced ejection fraction) Janneth Padilla, Cardiac Rehab, [address] [place] CARDIOLOGY DEPT. [address] [place] [address] Referral ID Status Reason Start Date Expiration Date Visits V isits Requested Authorized [id number] Closed Consult, 12/12/2021 12/12/2022 36 36 Test & Treat Reason for Visit Auth/Cert Specialty Diagnoses / Procedures Referred By Contact Refer red To Contact Diagnoses NSTEMI Procedures emerg ipi Referral ID Status Reason Start Date Expiration Date Visits Requ ested Visits Authorized [id number] 1 1 Encounter Details Date Type Department Care Team Description 12/08/2021 - Hospital Encounter Intermediate Cardiac Iker Cuevas MD [facility] [place] [address] Non-ST elevation myocardial infarction ( NSTEMI); 12/12/2021 Care Unit Ifeanyi Rene MD [facility] [address] ST elevation myocardial infarction (STEM I), unspecified artery; [facility] Acute HFr EF (heart failure with reduced ejection fraction) [place] [address] Social History Tobacco Use Types Packs/Day Years [...] Don Fatima Patient Age: 76 y.o. Language: Lao Race: White Ethnicity: Not nor Admit date: [...] Peter PA-C Kelly LaFlamme PA-C Cardiovascular Medicine [phone] Discharge Diagnoses (Hospital Problems) and Secondary Diagnoses [...] 3.75 guiding catheter and a 3.5 Fr [place] 20 Mhz using Manual pullback. Imaging was successful. Image quality was good. The ostial LCX showed moderate diffuse atherosclerotic plaque with scattered three quadrant calcification. Measurements were performed after pre-dilation. Post Intervention: The stent was well expanded and apposed. Intravascular Ultrasound was performed in the distal LM using a 7 Fr EBU 3.75 guiding catheter and a 3.5 Fr [place] 20 Mhz using Manual pullback. Imaging was [...] vascular congestion and cardiomegaly. ?? TTE from [facility] 12/08/21 ? Prior Cardiac Studies: TTE [...] prior thyroidectomy in 2012 who presented to [facility] with 1 week progressing breathlessness with [...] 03/2021 with Liz Poole PA-C. ?? At [facility], respiratory distress with [...] mg PO daily in place of lasix. [place] is new for him and he will [...] to be ~$24/mo; affordable per patient. Post [facility] he was started on Eliquis. [...] appointments: During 8am-5pm Wednesday through Wednesday call [phone] to speak with a nurse in the cardiology clinic All other times call [phone] and ask to speak to the general intern product management consultant. Return to work: One week Driving: No driving for 48 hours after catheterization. Follow up Appointments: PCP Lovely Vicente MD [phone] to see patient at the end of December for annual check up. Patient to see Dr. Lorenzana at 1120 am at December 19 for a post hospital check up. Integration Software Engineer Dr. De Oliveira to see you in [facility]. Left a message for office to set a date and time. Please call [phone] Nobles to see the patient for a same day cath in 2-3 weeks from now. Office to call with a date and time. For questions please call [phone] Home oxygen therapy: N/A Arrangements for VNA/home care: none Future Appointments and Orders Future Orders Complete By Expires Basic Metabolic Panel (non-fasting) [LAB15 Custom] 12/19/2021 (Approximate) 12/12/2022 Process Instructions: INCLUDES: Calcium, BUN, Creat, GFR, Glucose, Lytes Scheduling Instructions: Comments: Questions: Referral to Cardiac Rehab [EBP268 Custom] As directed Process Instructions: If no [...] appointments: During 8am-5pm Wednesday through Wednesday call [phone] to speak with a nurse in the cardiology clinic All other times call [phone] and ask to speak to the general intern product management consultant. Return to work: One week Driving: No driving for 48 hours after catheterization. Follow up Appointments: PCP Lovely Vicente MD [phone] to see patient at the end of December for annual check up. Patient to see Dr. Lorenzana at 1120 am at December 19 for a post hospital check up. Integration Software Engineer Dr. De Oliveira to see you in [facility]. Left a message for office to set a date and time. Please call [phone] Nobles to see the patient for a same day cath in 2-3 weeks from now. Office to call with a date and time. For questions please call [phone] Home oxygen therapy: N/A Arrangements for VNA/home [...] Progress Note Patient Name: Don Fatima Service: FACILITIES OFFICER / PA Responsible Attending: Ifeanyi Truong [...] was given Lasix 80mg IV x1 in labelling machine operator. Tolerated procedure well. Home today [...] TROPONINT 1.13* 0.92* 0.89* Pertinent Radiographic/Diagnostic Results: R/[facility] 12/10/21 Hemodynamics: Right Heart Pressures [...] pulmonary vascular congestion and cardiomegaly. TTE from [facility] 12/08/21 Prior Cardiac Studies: TTE 07/28/2019 [...] with MD Janneth Neville PA 12/12/2021 Pager [phone] Associated attestation - Ifeanyi Truong MD - [facility] Management Pager [phone] 20 minutes of this 35 minute visit [...] Progress Note Patient Name: Don Fatima Service: FACILITIES OFFICER / PA Responsible Attending: Iker Cuevas [...] was given Lasix 80mg IV x1 in labelling machine operator. Tolerated procedure well. Review of [...] TROPONINT 1.13* 0.92* 0.89* Pertinent Radiographic/Diagnostic Results: R/[facility] 12/10/21 Hemodynamics: Right Heart Pressures [...] pulmonary vascular congestion and cardiomegaly. TTE from [facility] 12/08/21 Prior Cardiac Studies: TTE 07/28/2019 [...] and answered his questions. Iker Cuevas MD [facility] Total time spent on review of records prior to visit, face to face time with patient during visit, documentation, and coordination of care with other clinicians: 25 minutes. . Iker Cuevas MD - 12/10/2021 12:30 PM EDT Images from the original note were not included. Inpatient Cardiology Progress Note Patient Name: Don Fatima Service: FACILITIES OFFICER / PA Responsible Attending: Iker Cuevas [...] was given Lasix 80mg IV x1 in labelling machine operator. Tolerated procedure well. Review of [...] ??? heparin (porcine) infusion 1,600 Units/hr (12/09/21 9872) PRN Meds:ipratropium-albuteroL, senna-docusate, bisacodyL, sodium chloride 0.9 [...] TROPONINT 1.13* 0.92* 0.89* Pertinent Radiographic/Diagnostic Results: R/[facility] 12/10/21 Hemodynamics: Right Heart Pressures [...] pulmonary vascular congestion and cardiomegaly. TTE from [facility] 12/08/21 Prior Cardiac Studies: TTE 07/28/2019 [...] Discussed with MD Migdalia Peter PA-C Pager #[phone] 12/10/2021 Cardiology Attending Note I have seen [...] updated and given pictures. Iker Cuevas MD [facility] Total time spent on review of records prior to visit, face to face time with patient during visit, documentation, and coordination of care with other clinicians: 35 minutes. Iker Cuevas MD - 12/09/2021 7:28 AM EDT Images from the original note were not included. Inpatient Cardiology Progress Note Patient Name: Don Fatima Service: FACILITIES OFFICER / PA Responsible Attending: Iker Cuevas [...] ??? heparin (porcine) infusion 1,600 Units/hr (12/09/21 7582) PRN Meds:ipratropium-albuteroL, sodium chloride 0.9 % (flush), [...] pulmonary vascular congestion and cardiomegaly. TTE from [facility] 12/08/21 Prior Cardiac Studies: TTE 07/28/2019 [...] Discussed with MD Migdalia Peter PA-C Pager #[phone] 12/09/2021 Cardiology Attending Note I have seen and examined the patient. I agree with the findings above. Developed CHF early this am despite getting more iv lasix last evening. Feeling better now. INR > 2. Lungs still wet at base. Echo at [facility] showed EF 35% with mild mod MR slightly lower than last value here. -vit K 2.5 orally to facilitate correction of INR- this will take 12-24 hours to take effect -furosemide 80 mg iv now -postpone right and left heart cath until tomorrow given INR and ADHF -increase statin to achieve LDL < 70 -CPAP tonight Iker Cuevas MD [facility] Total time spent on review of [...] prior thyroidectomy in 2012 who presented to [facility] with 1 week progressing breathlessness with [...] visit 03/2021 with Liz Poole PA-C. At [facility], respiratory distress with [...] [facility] ENDOSCOPY ??? PRO DRESSING CHANGE [...] [facility] MAIN OR Significant Family History: [...] (H) 65 - 199 mg/dL Labs at [facility] 12/08/2021-troponin I 8004 (UN L <60), [...] Monitor for ADRs. Trend troponins. Admission EKG. [facility] 12/09; consented. TTE. Telemetry monitoring, [...] code #Diet-carb control; n.p.o. after midnight for [facility] #DVT prophy- heparin infusion #GI prophy- PPI Discussed with MD Morgan Peter PA-C APP2 pager [phone] 12/08/2021 Cardiology Attending Note I have seen [...] type 1 due to graft or [place] coronary stenosis vs acute injury from CHF. 3. PAF: currrently in NSR. Have replaced warfarin with heparin 4. PAD: stable 5. DM: stable 6. CKD: will monitor and minimize contrast. Pt very appreciative of Dr. Yuan Retana's care in 2018. Will let him know patient is here. kIer Cuevas MD [facility] documented in this encounter Miscellaneous Notes [...] Type: *No Product type* / Secondary Insurance: [employer] [place] Prescription Coverage: Yes This plan was [...] cath without complications. Migdalia Parker PA-C Pager #[phone] 12/10/2021 Initial Assessments - Nick Georges RN [...] COVID test: Lab Results Component Value Date [id number] Not Detected 12/08/2021 Past medical History: Past [...] spouse would be surrogate decision maker per [place] surrogate decision making law. (Only good for 180 days) Any patient receiving care at [facility] must abide by [place] law. The hierarchy for surrogate decision making [...] (i) The agent with financial power of collections attorney or a conservator appointed in accordance [...] standard, cane - straight Home Address: [address] [place] [address] [place] [address] Social & Family Supports: All names listed below confirmed with patient as current and correct Extended Emergency Contact Information Primary Emergency Contact: Kisha Fatima Address: [address] [place] [address] [place] [address] [facility] Mobile Relation: Spouse Secondary Emergency Contact: Elba Swenson Address: [address] [place] Relation: Child Current Care Provided [...] Type: *No Product type* / Secondary Insurance: [employer] [facility] Prescription Coverage: Yes Preferred Pharmacy: [facility] Home [facility] [address] [address] - [address] [address] [place] Status: Patient is a : unable to assess Primary Care Provider: Lovely Vicente MD [phone] Patient/Caregiver Goals of Treatment: Get out of here Potential Needs for Transition of Care: none Agency Referrals: none patient has used [facility] in the past Transportation: no concerns Transportation Anticipated: family or friend will provide Concerns to be Addressed: patient refuses services, discharge planning Assessment: Patient is admitted to [facility] Service pager [phone] for 76 y.o.??male??with h/o??CAD s/p 3vCABG (THOMPSON-LAD, [...] status on current unit. Nick Georges RN communications program manager, Office of Care Management Pager: [phone] Brief Op Note - Vitaliy Nobles MD - 12/10/2021 8:31 AM EDT Images from the original note were not included. [facility] 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 Diabetes History: Don Fatima has had diabetes for 10 years. He has been on insulin for the last several years andis managed by his PCP. Lives in [place], [place] with his . States that he [...] Hold] heparin (porcine) infusion 1,600 Units/hr (12/09/21 1516) PRN: [SEP Hold] ipratropium-albuteroL, [SEP Hold] senna-docusate, [...] provide care for your patient Desirae Shaper [employer] Endocrinology Pager [phone] 70 minutes of this [...] to remain on Med/Surg floor, please page [phone] for any further questions or concerns. LANDON [...] for further details. STEPHANIE Rebolledo 12/08/2021 Pager [phone] documented in this encounter Plan of Treatment Upcoming Encounters Date Type Specialty Care Team Description 05/28/2022 Appointment Cardiology Zulma Dolan MD [facility] [place], [place] [address] (Wo rk) 05/28/2022 Laboratory Appointment Lab 05/28/2022 Office Visit Cardiology Zulma Dolan MD [facility] [place] [address] Liz Poole PA [facility] [place] [address] 06/10/2022 Office Visit Dermatology Laura Scherer MD [facility] [address] [place], [place] [address] (Wo rk) Scheduled Referrals Name [...] [facility] mg/dL [facility] Comment: Supplemental ranges: <140 mg/dL before meals <180 mg/dL all other times of the day Specimen Anatomical Collection Method Collection Time Receive d Time (Source) Location / / Volume Laterality Blood 12/12/2021 7:42 AM 7:42 EDT AM EDT Ifeanyi Truong MD POINT OF CARE TEST ORDERABLE S Performing Organization Address City/State/ZIP [place] [address] (ABNORMAL) Differential, Automated (12/12/2021 4:51 AM EDT) athologist Signature Neutrophils % 75.4 % [facility] Neutr Abs (ANC) 5.95 1.70 - [facility] 6.10 [facility] x10(3)/[facility] LABORATORY Lymphocytes % 12.2 % [facility] Lymphocytes Abs 1.0 0.9 - 3.2 [facility] x10(3)/[facility] LABORATORY Monocytes % 9.5 % [facility] Monocyte Abs 0.8 0.3 - 0.9 [facility] x10(3)/[facility] LABORATORY Eosinophils % 1.8 % [facility] Eosinophils Abs 0.1 0.0 - 0.4 [facility] x10(3)/[facility] LABORATORY Basophils % 0.5 % [facility] Basophils Abs 0.0 0.0 - 0.1 [facility] x10(3)/[facility] LABORATORY Immature Gran % 0.60 [...] 0.05 (H) 0.00 - 0.04 x10(3)/[facility] LABORATORY Specimen Anatomical Collection Method Collection Time Receive d Time (Source) Location / / Volume Laterality Blood 12/12/2021 4:51 AM 2 5:06 EDT AM EDT Resulting Agency Comment Spec In Lab Bijan Sun MD HEMATOLOGY ORDERABLES Performing Organization Address City/State/ZIP [place] [address] (ABNORMAL) Hemogram (12/12/2021 4:51 AM EDT) Analysis Performed At Patho logist Time Signature WBC 7.9 4.0 - 9.5 [facility] x10(3)/[facility] LABORATORY RBC 4.19 (L) 4.58 - [facility] 5.54 [facility] x10(6)/[facility] LABORATORY Hemoglobin 12.1 (L) 13.7 - [facility] 16.5 g/dL [facility] Hematocrit 36.7 (L) 40.5 - [facility] 48.5 % [facility] MCV 87.6 82.9 - [facility] 93.1 fL [facility] MCH 28.9 27.5 - [facility] 32.1 pg [facility] MCHC 33.0 32.0 - [facility] 35.7 g/dL [facility] Platelets 231 145 - 357 [facility] x10(3)/[facility] LABORATORY RDWSD 47.2 (H) 36.0 - [facility] 45.0 [facility] LABORATORY RDWCV 14.6 (H) 11.4 - [facility] 13.8 % [facility] MPV 9.5 7.6 - 12.9 [facility] LABORATORY nRBC % Auto 0.0 % [facility] nRBC Abs Auto 0.000 0.000 - [facility] 0.000 [facility] x10(3)/[facility] LABORATORY Specimen Anatomical Collection Method Collection Time Receive d Time (Source) Location / / Volume Laterality Blood 12/12/2021 4:51 AM 2 5:06 EDT AM EDT Resulting Agency Comment Spec In Lab Bijan Sun MD HEMATOLOGY ORDERABLES Performing Organization Address City/[facility]/[place] [address] (ABNORMAL) Prothrombin Time (12/12/2021 4:51 AM EDT) P athologist Signature PT 14.9 (H) 9.4 - 12.5 [facility] LABORATORY INR 1.3 [facility] [...] Address City/[facility]/[place] [address] (ABNORMAL) BMP w/fasting Glucose (12/12/2021 4:51 AM EDT) athologist Signature Glucose 152 (H) 65 - 99 [facility] Fasting mg/dL [facility] Comment: ?Fasting* Glucose Interpretive [...] of Diabetes Mellitus, Position Statement from the [employer]. ??Diabete s Care, Volume 33, [...] Organization Address City/State/[place] [address] Magnesium (12/12/2021 4:51 AM EDT) P athologist Signature Magnesium 1.02 0.69 - 1.07 [facility] mmol/L [facility] Specimen Anatomical Collection Method Collection Time Receive d Time (Source) Location / / Volume Laterality Blood 12/12/2021 4:51 AM 2 5:06 EDT AM EDT Resulting Agency Comment Spec In Lab Iker Cuevas MD CHEMISTRY ORDERABLES Performing Organization Address City/[facility]/[place] [address] POCT Glucose (12/12/2021 3:43 AM EDT) P athologist Signature POC Glucose 138 65 - 199 [facility] mg/dL [facility] Comment: Supplemental ranges: <140 mg/dL before meals <180 mg/dL all other times of the day Specimen Anatomical Collection Method Collection Time Receive d Time (Source) Location / / Volume Laterality Blood 12/12/2021 3:43 AM 2 3:43 EDT AM EDT Iker Cuevas MD POINT OF CARE TEST ORDERABLE S Performing Organization Address City/State/[place] [address] POCT Glucose (12/11/2021 11:44 PM EDT) athologist Signature POC Glucose 124 65 - 199 [facility] mg/dL [facility] Comment: Supplemental ranges: <140 mg/dL before meals <180 mg/dL all other times of the day Specimen Anatomical Collection Method Collection Time Receive d Time (Source) Location / / Volume Laterality Blood 12/11/2021 11:44 12/11/2021 PM EDT 11:44 PM EDT Iker Cuevas MD POINT OF CARE TEST ORDERABLE S Performing Organization Address City/[facility]/[place] [address] (ABNORMAL) POCT Glucose (12/11/2021 8:12 PM EDT) athologist Signature POC Glucose 200 (H) 65 - 199 [facility] mg/dL [facility] Comment: Supplemental ranges: <140 mg/dL before meals <180 mg/dL all other times of the day Specimen Anatomical Collection Method Collection Time Receive d Time (Source) Location / / Volume Laterality Blood 12/11/2021 8:12 PM 2 8:12 EDT PM EDT Iker Cuevas MD POINT OF CARE TEST ORDERABLE S Performing Organization Address City/[facility]/[place] [address] (ABNORMAL) POCT Glucose (12/11/2021 6:50 PM EDT) athologist Signature POC Glucose 245 (H) 65 - 199 [facility] mg/dL [facility] Comment: Supplemental ranges: <140 mg/dL before meals <180 mg/dL all other times of the day Specimen Anatomical Collection Method Collection Time Receive d Time (Source) Location / / Volume Laterality Blood 12/11/2021 6:50 PM 2 6:50 EDT PM EDT Iker Cuevas MD POINT OF CARE TEST ORDERABLE S Performing Organization Address City/State/[place] [address] (ABNORMAL) POCT Glucose (12/11/2021 4:00 PM EDT) P athologist Signature POC Glucose 383 (H) 65 - 199 [facility] mg/dL [facility] Comment: Supplemental ranges: <140 mg/dL before meals <180 mg/dL all other times of the day Specimen Anatomical Collection Method Collection Time Receive d Time (Source) Location / / Volume Laterality Blood 12/11/2021 4:00 PM 4:00 EDT PM EDT Iker Cuevas MD POINT OF CARE TEST ORDERABLE S Performing Organization Address City/[facility]/[place] [address] (ABNORMAL) POCT Glucose (12/11/2021 12:01 PM EDT) athologist Signature POC Glucose 342 (H) 65 - 199 [facility] mg/dL [facility] Comment: Supplemental ranges: <140 mg/dL before meals <180 mg/dL all other times of the day Specimen Anatomical Collection Method Collection Time Receive d Time (Source) Location / / Volume Laterality Blood 12/11/2021 12:01 12/11/2021 PM EDT 12:01 PM EDT Iker Cuevas MD POINT OF CARE TEST ORDERABLE S Performing Organization Address City/[facility]/[place] [address] COVID-19 PCR (12/11/2021 10:13 AM EDT) [facility] gist Method Time Signature SARS-CoV-2 Not [...] diagnosis of COVID-19 is performed using the ecomom Dianna FRIEND S-CoV-2 Assay as authorized by the FDA Emergency Use Authorization (EUA). This EUA assay is intended for In-vitro Diagnostic (IVD) use with respiratory sp ecimens such as nasopharyngeal swabs collected from individuals during the ac minto phase of infection. This assay is performed based on the instructions for use provided by [employer] and additional guidance provided by CDC and FDA. Testing is performed in the Clinical [facility] and [facility] Techn[facility] y Laboratory within the Department of Pathology and Laboratory Medicine at [facility], certified under the Clinical Laboratory Improvement Amendments [...] fact sheets at the following FDA website: https://www.fda.gov/medical-devices/ykrpkveraef-onbcbbp-7899-lnpxp-71-chilntnnc- gzq-fjjxhktpyavuov-jtnyaon-devices/jxkek-vsenbkhkyjh-ljfm SARS-Cov-2 RNA Source FACILITIES OFFICER Swab [facility] Specimen (Source) Anatomical Collection Method Collection Time Re ceived Time Location / / Volume Laterality Nasopharyngeal Swab 12/11/2021 10:13 05/03/2022 AM EDT 11:16 AM EDT Comment: Symptoms->Surveillance Resulting Agency Comment Spec In Lab Iker Cuevas MD MICROBIOLOGY - GENERAL ORDER [place] Performing Organization Address City/[facility] [place] [address] POCT Glucose (12/11/2021 7:34 AM EDT) athologist Signature POC Glucose 198 65 - 199 [facility] mg/dL [facility] Comment: Supplemental ranges: <140 mg/dL before meals <180 mg/dL all other times of the day Specimen Anatomical Collection Method Collection Time Receive d Time (Source) Location / / Volume Laterality Blood 12/11/2021 7:34 AM 2 7:34 EDT AM EDT Iker Cuevas MD POINT OF CARE TEST ORDERABLE S Performing Organization Address City/[facility]/[place] [address] (ABNORMAL) POCT Glucose (12/11/2021 5:07 AM EDT) P athologist Signature POC Glucose 208 (H) 65 - 199 [facility] Comment: Supplemental ranges: <140 mg/dL before meals <180 mg/dL all other times of the day Specimen Anatomical Collection Method Collection Time Receive d Time (Source) Location / / Volume Laterality Blood 12/11/2021 5:07 AM 2 5:07 EDT AM EDT Iker Cuevas MD POINT OF CARE TEST ORDERABLE S Performing Organization Address City/[facility]/ZIP [place] [address] (ABNORMAL) Differential, Automated (12/11/2021 4:28 AM EDT) [facility] Method Time Signature Neutrophils % 79.6 % [facility] Neutr Abs (ANC) 7.01 (H) 1.70 - [facility] 6.10 [facility] x10(3)/[facility] L LABORATORY Lymphocytes % 9.1 % [facility] Lymphocytes Abs 0.8 (L) 0.9 - 3.2 [facility] x10(3)/[facility] LABORATORY Monocytes % 9.2 % [facility] Monocyte Abs 0.8 0.3 - 0.9 [facility] x10(3)/[facility] LABORATORY Eosinophils % 1.3 % [facility] Eosinophils Abs 0.1 0.0 - 0.4 [facility] x10(3)/[facility] LABORATORY Basophils % 0.5 % [facility] Basophils Abs 0.0 0.0 - 0.1 [facility] x10(3)/[facility] LABORATORY Immature Gran [...] Melisa Gran Abs 0.03 0.00 - 0.04 x10(3)/[facility] Specimen Anatomical Collection Method Collection Time Receive d Time (Source) Location / / Volume Laterality Blood 12/11/2021 4:28 AM 4:37 EDT AM EDT Resulting Agency Comment Spec In Lab Bijan Sun MD HEMATOLOGY ORDERABLES Performing Organization Address City/[facility]/ZIP [place] [address] (ABNORMAL) Hemogram (12/11/2021 4:28 AM EDT) Analysis Performed At Patho logist Time Signature WBC 8.8 4.0 - 9.5 [facility] x10(3)/[facility] LABORATORY RBC 4.15 (L) 4.58 - [facility] 5.54 [facility] x10(6)/[facility] LABORATORY Hemoglobin 11.9 (L) 13.7 - [facility]5 g/dL [facility] Hematocrit 36.9 (L) 40.5 - [facility] 48.5 % [facility] MCV 88.9 82.9 - [facility] 93.1 [facility] LABORATORY MCH 28.7 27.5 - [facility] 32.1 pg [facility] MCHC 32.2 32.0 - [facility] 35.7 g/dL [facility] Platelets 211 145 - 357 [facility] x10(3)/[facility] LABORATORY RDWSD 48.3 (H) 36.0 - [facility] 45.0 [facility] LABORATORY RDWCV 14.8 (H) 11.4 - [facility] 13.8 % [facility] MPV 9.6 7.6 - 12.9 [facility] LABORATORY nRBC % Auto 0.0 % [facility] nRBC Abs Auto 0.000 0.000 - [facility] 0.000 [facility] x10(3)/[facility] LABORATORY Specimen Anatomical Collection Method Collection Time Receive d Time (Source) Location / / Volume Laterality Blood 12/11/2021 4:28 AM 2 4:37 EDT AM EDT Resulting Agency Comment Spec In Lab Bijan Sun MD HEMATOLOGY ORDERABLES Performing Organization Address City/State/ZIP [place] [address] (ABNORMAL) Prothrombin Time (12/11/2021 4:28 AM EDT) P athologist Signature PT 17.7 (H) 9.4 - 12.5 [facility] LABORATORY INR 1.6 [facility] [...] Organization Address City/State/[place] [address] (ABNORMAL) BMP w/fasting Glucose (12/11/2021 4:28 AM EDT) athologist Signature Glucose 207 (H) 65 - 99 [facility] Fasting mg/dL [facility] Comment: ?Fasting* Glucose Interpretive [...] of Diabetes Mellitus, Position Statement from the [employer]. ??Diabete s Care, Volume 33, Supplement 1, Jul 2009 BUN 49 (H) 10 - 20 mg/dL [facility] Creatinine 1.43 0.80 - 1.50 mg/dL [facility] [...] MD CHEMISTRY ORDERABLES Performing Organization Address City/[facility] [place] [address] Magnesium (12/11/2021 4:28 AM EDT) P athologist Signature Magnesium 1.04 0.69 - 1.07 [facility]/L [facility] Specimen Anatomical Collection Method Collection Time Receive d Time (Source) Location / / Volume Laterality Blood 12/11/2021 4:28 AM 2 4:37 EDT AM EDT Resulting Agency Comment Spec In Lab Iker Cuevas MD CHEMISTRY ORDERABLES Performing Organization Address City/State/ZIP Code Phon e Number [place] [id number]OS[address] POCT Glucose (12/11/2021 3:58 AM EDT) athologist Signature POC Glucose 189 65 - 199 [facility] mg/dL [facility] Comment: Supplemental ranges: <140 mg/dL before meals <180 mg/dL all other times of the day Specimen Anatomical Collection Method Collection Time Receive d Time (Source) Location / / Volume Laterality Blood 12/11/2021 3:58 AM 2 3:58 EDT AM EDT Iker Cuevas MD POINT OF CARE TEST ORDERABLE S Performing Organization Address City/[facility]/[place] [address] (ABNORMAL) POCT Glucose (12/10/2021 11:45 PM EDT) athologist Signature POC Glucose 205 (H) 65 - 199 [facility] mg/dL [facility] Comment: Supplemental ranges: <140 mg/dL before meals <180 mg/dL all other times of the day Specimen Anatomical Collection Method Collection Time Receive d Time (Source) Location / / Volume Laterality Blood 12/10/2021 11:45 12/10/2021 PM EDT 11:45 PM EDT Iker Cuevas MD POINT OF CARE TEST ORDERABLE S Performing Organization Address City/[facility]/[place] [address] (ABNORMAL) POCT Glucose (12/10/2021 7:54 PM EDT) athologist Signature POC Glucose 225 (H) 65 - 199 [facility] mg/dL [facility] Comment: Supplemental ranges: <140 mg/dL before meals <180 mg/dL all other times of the day Specimen Anatomical Collection Method Collection Time Receive d Time (Source) Location / / Volume Laterality Blood 12/10/2021 7:54 PM 2 7:54 EDT PM EDT Iker Cuevas MD POINT OF CARE TEST ORDERABLE S Performing Organization Address City/State/ZIP [place] [address] Potassium (12/10/2021 7:46 PM EDT) athologist Signature Potassium 4.2 3.5 - 5.0 [facility] mmol/L [facility] Comment: Please note: ??Patients [...] Address City/[facility]/[place] [address] (ABNORMAL) Basic Metabolic Panel (non-fasting) (12/10/2021 6:12 PM EDT) athologist Signature Glucose Lvl 246 (H) 65 - 199 [facility] mg/dL [facility] Comment: Diabetes: >=200 mg/dL plus symp toms BUN 50 (H) 10 - 20 mg/dL [facility] Creatinine 1.39 0.80 - 1.50 mg/dL [facility] [...] Address City/[facility]/ZIP [place] [address] POCT Glucose (12/10/2021 4:59 PM EDT) P athologist Signature POC Glucose 158 65 - 199 [facility] mg/dL [facility] Comment: Supplemental ranges: <140 mg/dL before meals <180 mg/dL all other times of the day Specimen Anatomical Collection Method Collection Time Receive d Time (Source) Location / / Volume Laterality Blood 12/10/2021 4:59 PM 2 4:59 EDT PM EDT Iker Cuevas MD POINT OF CARE TEST ORDERABLE S Performing Organization Address City/State/ZIP [place] [address] (ABNORMAL) POCT Glucose (12/10/2021 12:43 PM EDT) P athologist Signature POC Glucose 241 (H) 65 - 199 [facility] mg/dL [facility] Comment: Supplemental ranges: <140 mg/dL before meals <180 mg/dL all other times of the day Specimen Anatomical Collection Method Collection Time Receive d Time (Source) Location / / Volume Laterality Blood 12/10/2021 12:43 12/10/2021 PM EDT 12:43 PM EDT Iker Cuevas MD POINT OF CARE TEST ORDERABLE S Performing Organization Address City/State/ZIP Code Phon e Number [facility] [address] EKG 12 Lead (12/10/2021 11:17 AM EDT) Component Value Ref Range Test Analysis Performed Pathologis t Method Time At Signature Ventricular rate 62 BPM MUSE SYSTEM Atrial Rate 62 BPM MUSE SYSTEM P-R Interval 142 ms MUSE SYSTEM QRS Duration 100 ms MUSE SYSTEM Q-T Interval 434 ms MUSE SYSTEM QTC Calculated 440 ms MUSE SYSTEM (Bezet) Calculated P [place] 34 degrees MUSE SYSTEM Calculated R [place] -39 degrees MUSE SYSTEM Calculated T [place] 92 degrees MUSE SYSTEM INTERPRETATION Normal sinus [...] Laterality Volume Narrative 12/10/2021 12:04 PM EDT ?[facility] ? Cardiac Cathete rization/Intervention Report ? Patient Name: Don Fatima. ? Procedure Date: 12/10/2021 ? A #: [id number] ? Primary Physician: Nobles, Vitaliy P ? Case #: [id number] ? File Name: [id number] ? Catheterization Order Number: [id number] ? [facility] ? Final Report [place], [place] ? Patient Name: ? Don E. Stewa rt ? ID#: ?[id number] ? : ?1945 ? Procedure Date: ? December 10, 2021 ? Case #: ? [id number] ? Room: ? 1 ? Case Physician: [...] was ?designated as ASA Class III. e [facility] clinical frailty scale is 5: Mildly [...] procedure was Urgent. The indication for ?the labelling machine operator visit is ACS great er [...] ?3.75 guiding catheter and a 3.5 Fr [place] [place] 20 Mhz using Manual ?pullback. ??Imaging was [...] ?3.75 guiding catheter and a 3.5 Fr [facility] [place] 20 Mhz using Manual ?pullback. ??Imaging was [...] may require ?modification of this regimen. C [facility] Interventional Cardiology for ?questions. ?The 1 [...] Procedure Note Vitaliy Nobles MD - 01/14/2022 [facility] Cardiac Catheterization/Intervention Re port Patient Name: Kushal Don VedaMadiha Procedure Date: 12/10/2021 A #: [id number] Primary Physician: Vitaliy Nobles Case #: [id number] File Name: [id number] Catheterization Order Number: [id number] [facility] Director Of Partner Marketing [facility] Final Report [place], [place] Patient Name: Don Fatima ID#: [...] e was Urgent. The indication for the labelling machine operator visit is ACS greater than [...] and a 3.5 Fr [facility] [place] 20 Mhz using Manual pullback. Imaging was [...] and a 3.5 Fr [facility] [place] 20 Mhz using Manual pullback. Imaging was successful. Image quality was good. The distal LM showed moderate diffuse atherosclero tic plaque. Post Intervention: The stent was well e xpanded and apposed. Indication for Intervention: Coronary intervention was indicated for primary therapy for an acute myocardial infarction. The priority for the procedure was Urgent. The [facility] indication for the procedure was [...] modification of this regimen. Consult D [facility] Interventional Cardiology for questions. The 1 [...] [facility] mg/dL [facility] Comment: Supplemental ranges: <140 mg/dL before meals <180 mg/dL all other times of the day Specimen Anatomical Collection Method Collection Time Receive d Time (Source) Location / / Volume Laterality Blood 12/10/2021 10:30 12/10/2021 AM EDT 10:30 AM EDT Iker Cuevas MD POINT OF CARE TEST ORDERABLE S Performing Organization Address City/State/ZIP [place] [address] (ABNORMAL) POCT Glucose (12/10/2021 9:48 AM EDT) athologist Signature POC Glucose 279 (H) 65 - 199 [facility] mg/dL [facility] Comment: Supplemental ranges: <140 mg/dL before meals <180 mg/dL all other times of the day Specimen Anatomical Collection Method Collection Time Receive d Time (Source) Location / / Volume Laterality Blood 12/10/2021 9:48 AM 9:48 EDT AM EDT Iker Cuevas MD POINT OF CARE TEST ORDERABLE S Performing Organization Address City/State/[place] [address] (ABNORMAL) POCT Glucose (12/10/2021 9:07 AM EDT) P athologist Signature POC Glucose 268 (H) 65 - 199 [facility] mg/dL [facility] Comment: Supplemental ranges: <140 mg/dL before meals <180 mg/dL all other times of the day Specimen Anatomical Collection Method Collection Time Receive d Time (Source) Location / / Volume Laterality Blood 12/10/2021 9:07 AM 9:07 EDT AM EDT Iker Cuevas MD POINT OF CARE TEST ORDERABLE S Performing Organization Address City/State/[place] [address] (ABNORMAL) Point of Care Blood Gas Historical (12/10/2021 9:04 AM EDT) Patholo gist Method Time Signature POC pH 7.40 7.35 - [facility] 7.45 [facility] POC PCO2 40 35 - 45 [facility] mmHg [facility] POC PO2 63 (L) 85 - 104 [facility] LABORATORY POC Base Excess 0.0 -3.0 - 3.0 [facility] K mmol/L [facility] POC HCO3 24.8 20.0 - [facility] 26.0 [facility] mmol/[facility] LABORATORY POC Sodium 143 135 - 145 [facility] mmol/L [facility] POC Potassium 3.7 3.5 - 5.0 [facility] mmol/L [facility] POC Ionized Ca 1.07 (L) 1.15 - [facility] 1.33 [facility] mmol/L HOSPITAL LABORATORY POC Hematocrit 30.0 (L) 40.0 - [facility] 51.0 % [facility] POC Calc Hgb 10.2 (L) 13.7 - [facility] 17.5 g/dL [facility] Comment: The calculation of hemoglobin f rom hematocrit assumes a normal MCHC. POC Bgas Loc CC LAB [facility] Specimen Anatomical Collection Method Collection Time Receive d Time (Source) Location / / Volume Laterality Blood 12/10/2021 9:04 AM 2 EDT 12:00 PM EDT Ifeanyi Truong MD CHEMISTRY ORDERABLES Performing Organization Address City/[facility]/[place] [address] (ABNORMAL) POCT Glucose (12/10/2021 7:19 AM EDT) athologist Signature POC Glucose 274 (H) 65 - 199 [facility] mg/dL [facility] Comment: Supplemental ranges: <140 mg/dL before meals <180 mg/dL all other times of the day Specimen Anatomical Collection Method Collection Time Receive d Time (Source) Location / / Volume Laterality Blood 12/10/2021 7:19 AM 2 7:19 EDT AM EDT Iker Cuevas MD POINT OF CARE TEST ORDERABLE S Performing Organization Address City/[facility]/[place] [address] Heparin (unfractionated) Level (12/10/2021 [...] Address City/State/ZIP Code Phon e Number [address] (ABNORMAL) Differential, Automated (12/10/2021 4:25 AM EDT) [facility] Method Time Signature Neutrophils % 79.8 % [facility] Neutr Abs (ANC) 7.47 (H) 1.70 - [facility] 6.10 [facility] x10(3)/[facility] LABORATORY Lymphocytes % 10.6 % [facility] Lymphocytes Abs 1.0 0.9 - 3.2 [facility] x10(3)/[facility] LABORATORY Monocytes % 8.4 % [facility] Monocyte Abs 0.8 0.3 - 0.9 [facility] x10(3)/[facility] LABORATORY Eosinophils % 0.6 % [facility] Eosinophils Abs 0.1 0.0 - 0.4 [facility] x10(3)/[facility] LABORATORY Basophils % 0.2 % [facility] Basophils Abs 0.0 0.0 - 0.1 [facility] x10(3)/[facility] LABORATORY Immature Gran [...] 0.04 0.00 - 0.04 x10(3)/[facility] Specimen Anatomical Collection Method Collection Time Receive d Time (Source) Location / / Volume Laterality Blood 12/10/2021 4:25 AM 4:34 EDT AM EDT Resulting Agency Comment Spec In Lab Morgan BROWN HEMATOLOGY ORDERABLES Performing Organization Address City/[facility]/ZIP Code Phon e Number [address] (ABNORMAL) Hemogram (12/10/2021 4:25 AM EDT) Analysis Performed At Patho logist Time Signature WBC 9.4 4.0 - 9.5 [facility] x10(3)/[facility] LABORATORY RBC 3.81 (L) 4.58 - [facility] 5[facility]54 [facility] x10(6)/[facility] LABORATORY Hemoglobin 11.1 (L) 13.7 - [facility] 16.5 g/dL [facility] Hematocrit 34.0 (L) 40.5 - [facility] 48.5 % [facility] MCV 89.2 82.9 - [facility] 93.1 [facility] LABORATORY MCH 29.1 27.5 - [facility] 32.1 pg [facility] MCHC 32.6 32.0 - [facility] 35.7 g/dL [facility] Platelets 183 145 - 357 [facility] x10(3)/[facility] LABORATORY RDWSD 49.9 (H) 36.0 - [facility] 45.0 [facility] LABORATORY RDWCV 15.2 (H) 11.4 - [facility] 13.8 % [facility] MPV 9.8 7.6 - 12.9 [facility] LABORATORY nRBC % Auto 0.0 % [facility] nRBC Abs Auto 0.000 0.000 - [facility] 0.000 [facility] x10(3)/[facility] LABORATORY Specimen Anatomical Collection Method Collection Time Receive d Time (Source) Location / / Volume Laterality Blood 12/10/2021 4:25 AM 2 4:34 EDT AM EDT Resulting Agency Comment Spec In Lab Morgan BROWN HEMATOLOGY ORDERABLES Performing Organization Address City/State/ZIP [place] [address] (ABNORMAL) Prothrombin Time (12/10/2021 4:25 AM EDT) P athologist Signature PT 20.0 (H) 9.4 - 12.5 [facility] LABORATORY INR 1.7 [facility] [...] Organization Address City/State/ZIP Code Phon e Number [place] [phone]OS[address] Drive (ABNORMAL) BMP w/fasting Glucose (12/10/2021 4:25 AM EDT) athologist Signature Glucose 210 (H) 65 - 99 [facility] Fasting mg/dL [facility] Comment: ?Fasting* Glucose Interpretive [...] of Diabetes Mellitus, Position Statement from the [employer]. ??Diabete s Care, Volume 33, [...] Organization Address City/State/ZIP [place] [address] Magnesium (12/10/2021 4:25 AM EDT) P athologist Signature Magnesium 0.95 0.69 - 1.07 [facility]/L [facility] Specimen Anatomical Collection Method Collection Time Receive d Time (Source) Location / / Volume Laterality Blood 12/10/2021 4:25 AM 2 4:34 EDT AM EDT Resulting Agency Comment Spec In Lab Iker Cuevas MD CHEMISTRY ORDERABLES Performing Organization Address City/[facility]/[place] [address] POCT Glucose (12/10/2021 1:58 AM EDT) athologist Signature POC Glucose 164 65 - 199 [facility] mg/dL [facility] Comment: Supplemental ranges: <140 mg/dL before meals <180 mg/dL all other times of the day Specimen Anatomical Collection Method Collection Time Receive d Time (Source) Location / / Volume Laterality Blood 12/10/2021 1:58 AM 2 1:58 EDT AM EDT Iker Cuevas MD POINT OF CARE TEST ORDERABLE S Performing Organization Address City/[facility]/[place] [address] (ABNORMAL) POCT Glucose (12/09/2021 9:02 PM EDT) athologist Signature POC Glucose 313 (H) 65 - 199 [facility] mg/dL [facility] Comment: Supplemental ranges: <140 mg/dL before meals <180 mg/dL all other times of the day Specimen Anatomical Collection Method Collection Time Receive d Time (Source) Location / / Volume Laterality Blood 12/09/2021 9:02 PM 2 9:02 EDT PM EDT Iker Cuevas MD POINT OF CARE TEST ORDERABLE S Performing Organization Address City/[facility]/[place] [address] Heparin (unfractionated) Level (12/09/2021 [...] Organization Address City/State/ZIP [place] [address] (ABNORMAL) Basic Metabolic Panel (non-fasting) (12/09/2021 7:30 PM EDT) athologist Signature Glucose Lvl 372 (H) 65 - 199 [facility] mg/dL [facility] Comment: [...] Organization Address City/State/[place] [address] (ABNORMAL) POCT Glucose (12/09/2021 6:34 PM EDT) P athologist Signature POC Glucose 408 (H) 65 - 199 [facility] mg/dL [facility] Comment: Supplemental ranges: <140 mg/dL before meals <180 mg/dL all other times of the day Specimen Anatomical Collection Method Collection Time Receive d Time (Source) Location / / Volume Laterality Blood 12/09/2021 6:34 PM 2 6:34 EDT PM EDT Iker Cuevas MD POINT OF CARE TEST ORDERABLE S Performing Organization Address City/[facility]/[place] [address] (ABNORMAL) POCT Glucose (12/09/2021 6:32 PM EDT) P athologist Signature POC Glucose 356 (H) 65 - 199 [facility] mg/dL [facility] Comment: Supplemental ranges: <140 mg/dL before meals <180 mg/dL all other times of the day Specimen Anatomical Collection Method Collection Time Receive d Time (Source) Location / / Volume Laterality Blood 12/09/2021 6:32 PM 2 6:32 EDT PM EDT Iker Cuevas MD POINT OF CARE TEST ORDERABLE S Performing Organization Address City/State/[place] [address] (ABNORMAL) POCT Glucose (12/09/2021 4:19 PM EDT) athologist Signature POC Glucose 347 (H) 65 - 199 [facility] mg/dL [facility] Comment: Supplemental ranges: <140 mg/dL before meals <180 mg/dL all other times of the day Specimen Anatomical Collection Method Collection Time Receive d Time (Source) Location / / Volume Laterality Blood 12/09/2021 4:19 PM 2 4:19 EDT PM EDT Iker Cuevas MD POINT OF CARE TEST ORDERABLE S Performing Organization Address City/[facility]/[place] [address] Heparin (unfractionated) Level (12/09/2021 [...] Organization Address City/State/[place] [address] (ABNORMAL) POCT Glucose (12/09/2021 12:02 PM EDT) P athologist Signature POC Glucose 235 (H) 65 - 199 [facility]/dL [facility] Comment: Supplemental ranges: <140 mg/dL before meals <180 mg/dL all other times of the day Specimen Anatomical Collection Method Collection Time Receive d Time (Source) Location / / Volume Laterality Blood 12/09/2021 12:02 12/09/2021 PM EDT 12:02 PM EDT Iker Cuevas MD POINT OF CARE TEST ORDERABLE S Performing Organization Address City/[facility]/[place] [address] (ABNORMAL) POCT Glucose (12/09/2021 9:44 AM EDT) P athologist Signature POC Glucose 214 (H) 65 - 199 [facility]/dL [facility] Comment: Supplemental ranges: <140 mg/dL before meals <180 mg/dL all other times of the day Specimen Anatomical Collection Method Collection Time Receive d Time (Source) Location / / Volume Laterality Blood 12/09/2021 9:44 AM 9:44 EDT AM EDT Iker Cuevas MD POINT OF CARE TEST ORDERABLE S Performing Organization Address City/[facility]/[place] [address] EKG 12 Lead (12/09/2021 7:57 AM EDT) Component Value Ref Range Test Analysis Performed Pathologis t Method Time At Signature Ventricular rate 101 BPM MUSE SYSTEM Atrial Rate 101 BPM MUSE SYSTEM P-R Interval 150 ms MUSE SYSTEM QRS Duration 112 ms MUSE SYSTEM Q-T Interval 364 ms MUSE SYSTEM QTC Calculated 471 ms MUSE SYSTEM (Bezet) Calculated P [place] 59 degrees MUSE SYSTEM Calculated R [place] -42 degrees MUSE SYSTEM Calculated T [place] 102 degrees MUSE SYSTEM INTERPRETATION Sinus tachycardia Occasional Premature ventricular com plexes MUSE SYSTEM Left axis deviation 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) Abnormal ECG When compared with ECG of 08-DEC-2021 16:40, Premature ventricular complexes are now Present Confirmed by MD Fernandez Danette ([id number]) on 12/10/2021 4:55:06 PM Specimen Anatomical Collection [...] [facility] mg/dL [facility] Comment: Supplemental ranges: <140 mg/dL before meals <180 mg/dL all other times of the day Specimen Anatomical Collection Method Collection Time Receive d Time (Source) Location / / Volume Laterality Blood 12/09/2021 7:28 AM 2 7:28 EDT AM EDT Iker Cuevas MD POINT OF CARE TEST ORDERABLE S Performing Organization Address City/State/[place] [address] (ABNORMAL) Hemoglobin A1c (12/09/2021 [...] Mellitus, Diabetes Care 2013; 36: Suppl. 1, K98-60 Est Avg Gluc See note mg/dL ST [...] with hemoglobinopathies. Additional resources are available on [facility] ADA website. Macario HAMMOND, Ruthann J, Deysi R, et al. ??Tr anslating the A1C assay into estimated average glucose values. ??Diabetes Care 2008:31(8):7108-3643. Specimen Anatomical Collection Method Collection Time Receive d Time (Source) Location / / Volume Laterality Blood Venous Draw / 12/09/2021 6:18 AM 12/10/19 22 Unknown EDT 12:24 PM EDT Resulting Agency Comment Spec In Lab Migdalia BROWN CHEMISTRY ORDERABLES Performing Organization Address City/State/ZIP [place] [address] (ABNORMAL) Prothrombin Time (12/09/2021 6:18 AM EDT) athologist Signature PT 26.6 (H) 9.4 - 12.5 [facility] LABORATORY INR 2.3 [facility] Address City/[facility]/ZIP Code Phon e Number [address] Heparin (unfractionated) Level (12/09/2021 6:18 AM EDT) P athologist Signature Heparin UFH 0.24 IU/mL [facility] [...] Address City/[facility]/[place] [address] (ABNORMAL) Differential, Automated (12/09/2021 6:18 AM EDT) Patholo gist Method Time Signature Neutrophils % 91.5 % [facility] LABORATORY Neutr Abs (ANC) 15.78 (H) 1.70 - [facility] 6.10 [facility] x10(3)/[facility] LABORATORY Lymphocytes % 2.9 % [facility] LABORATORY Lymphocytes Abs 0.5 (L) 0.9 - 3.2 [facility] x10(3)/[facility] LABORATORY Monocytes % 4.9 % [facility] LABORATORY Monocyte Abs 0.8 0.3 - 0.9 [facility] x10(3)/[facility] LABORATORY Eosinophils % 0.0 % [facility] LABORATORY Eosinophils Abs 0.0 0.0 - 0.4 [facility] x10(3)/[facility] LABORATORY Basophils % 0.2 % [facility] LABORATORY Basophils Abs 0.0 0.0 - 0.1 [facility] x10(3)/[facility] LABORATORY Immature Gran [...] Abs 0.09 (H) 0.00 - 0.04 x10(3)/[facility] LABORATORY Specimen Anatomical Collection Method Collection Time Receive d Time (Source) Location / / Volume Laterality Blood 12/09/2021 6:18 AM 2 6:33 EDT AM EDT Resulting Agency Comment Spec In Lab Morgan BROWN HEMATOLOGY ORDERABLES Performing Organization Address City/State/ZIP [place] [address] (ABNORMAL) Hemogram (12/09/2021 6:18 AM EDT) Analysis Performed At Patho logist Time Signature WBC 17.2 (H) 4.0 - 9.5 [facility] x10(3)/[facility] LABORATORY RBC 4.32 (L) 4.58 - [facility] 5.54 [facility] x10(6)/[facility] LABORATORY Hemoglobin 12.6 (L) 13.7 - [facility] 16.5 g/dL [facility] Hematocrit 38.9 (L) 40.5 - [facility] 48.5 % [facility] MCV 90.0 82.9 - [facility] 93.1 [facility] LABORATORY MCH 29.2 27.5 - [facility] 32.1 pg [facility] MCHC 32.4 32.0 - [facility] 35.7 g/dL [facility] Platelets 193 145 - 357 [facility] x10(3)/[facility] LABORATORY RDWSD 50.4 (H) 36.0 - [facility] 45.0 [facility] LABORATORY RDWCV 15.2 (H) 11.4 - [facility] 13.8 % [facility] LABORATORY MPV 9.5 7.6 - 12.9 [facility] LABORATORY nRBC % Auto 0.0 % [facility] LABORATORY nRBC Abs Auto 0.000 0.000 - [facility] 0.000 [facility] x10(3)/[facility] LABORATORY Specimen Anatomical Collection Method Collection Time Receive d Time (Source) Location / / Volume Laterality Blood 12/09/2021 6:18 AM 6:33 EDT AM EDT Resulting Agency Comment Spec In Lab Morgan BROWN HEMATOLOGY ORDERABLES Performing Organization Address City/State/ZIP [place] [address] Lipid Panel (Reflex Direct LDL) (12/09/2021 6:18 AM EDT) P athologist Signature Chol, Total 105 mg/dL [facility] Comment: Lower Risk: <200 mg/dL Average Risk: 200-239 mg/dL Higher Risk: >fh=413 mg/dL Triglycerides 133 mg/dL [facility] LABORATORY Comment: Average Risk/Lower Risk: <150 mg/dL Borderline High Risk: 150-199 mg/dL High Risk: 200-499 mg/dL Very High Risk: >mq=314 mg/dL HDL 42 mg/dL [facility] Comment: Males: ?? Higher Risk: <40 mg/dL Females: ?? Higher Risk: <50 mg/dL LDL Cholesterol 36 mg/dL [facility] Comment: Lowest Risk: <100 mg/dL Lower Risk: 100-129 mg/dL Borderline High Risk: 130-159 mg/dL High Risk: 160-189 mg/dL Very High Risk: >mf=419 mg/dL Chol/HDL Ratio 2.5 ratio [facility] LAB[facility]ORY Lipid Interpretation See Note [facility] LABORATORY Comment: Lipid management should be guided by a p atient? s ASCVD risk, goals and preferences. ACC/AHA Guidelines recommend high intens ity statin if clinical ASCVD or LDL greater than or equal to 190 mg/dL. http://Ryzing.Nomanini/AIS-PWF-Rzoejdrqq Adults aged 40-75 with LDL 70-189 mg/dL should have their 10 year ASCVD risk estimated with the ACC/AHA ASCVD risk es timator http://tools.acc.org/BFTEN-Npzh-Zdsipgmd r/ Statin should be discussed if risk [...] Organization Address City/State/ZIP [place] [address] TSH (12/09/2021 6:18 AM EDT) athologist Signature TSH 1.60 0.27 - 4.20 [facility] mcIU/mL [facility] Comment: Reference Interval (mcIU/mL): Females: ??First Trimester: 0.23-3.88 ??Second Trimester: 0.22-3.90 ??Third Trimester: 0.44-4.66 Specimen Anatomical Collection Method Collection Time Receive d Time (Source) Location / / Volume Laterality Blood 12/09/2021 6:18 AM 2 6:33 EDT AM EDT Resulting Agency Comment Spec In Lab Iker Cuevas MD CHEMISTRY ORDERABLES Performing Organization Address City/[facility]/[place] [address] Hepatic Function Panel (12/09/2021 6:18 AM EDT) athologist Signature Total Protein 7.3 6.1 - 8.0 [facility] g/dL [facility] Albumin 4.2 3.2 - 5.2 [facility] g/dL [facility] AST 25 0 - 39 [facility] unit/L [facility] ALT 15 0 - 55 [facility] unit/L [facility] Alk Phos 75 40 - 130 [facility] unit/L [facility] Total 1.1 0.2 - 1.3 [facility] Bilirubin mg/dL [facility] Bili, Direct 0.2 0.0 - 0.3 [facility] mg/dL [facility] Specimen Anatomical Collection Method Collection Time Receive d Time (Source) Location / / Volume Laterality Blood 12/09/2021 6:18 AM 2 6:33 EDT AM EDT Resulting Agency Comment Spec In Lab Iker Cuevas MD CHEMISTRY ORDERABLES Performing Organization Address City/[facility] [place] [address] (ABNORMAL) BMP w/fasting Glucose (12/09/2021 6:18 AM EDT) P athologist Signature Glucose 235 (H) 65 - 99 [facility] Fasting mg/dL [facility] Comment: ?Fasting* Glucose Interpretive [...] of Diabetes Mellitus, Position Statement from the [employer]. ??Diabete s Care, Volume 33, [...] Address City/State/ZIP Code Phon e Number [address] Magnesium (12/09/2021 6:18 AM EDT) P athologist Signature Magnesium 0.81 0.69 - 1.07 [facility] mmol/L [facility] LABOR[facility]ORY Specimen Anatomical Collection Method Collection Time Receive d Time (Source) Location / / Volume Laterality Blood 12/09/2021 6:18 AM 2 6:33 EDT AM EDT Resulting Agency Comment Spec In Lab Iker Cuevas MD CHEMISTRY ORDERABLES Performing Organization Address City/State/[place] [address] (ABNORMAL) Troponin (12/09/2021 6:18 AM EDT) athologist Signature Troponin-T 1.13 (H) 0.00 - [facility] 0.00 ng/mL [facility] Comment: The 99th percentile [...] additional sample may be indicated. Reference: Third [place] Definition of Myocardial Infarction. Journal of the [employer] 2012;60:1581-98 Specimen Anatomical Collection Method Collection Time Receive d Time (Source) Location / / Volume Laterality Blood 12/09/2021 6:18 AM 6:33 EDT AM EDT Resulting Agency Comment Spec In Lab Iker Cuevas MD CHEMISTRY ORDERABLES Performing Organization Address City/State/ZIP Code Phon e Number [place] [id number] XR Chest One View [...] who have questions please contact the health hearing care practitioner that requested your imaging first. ? Narrative [...] ho have questions please contact the health hearing care practitioner that requested your imaging first. Electronically signed by: Yoselin White, [facility] ([phone]), at 12/09/2021 5:35 AM Amber Sanches MD IMG DX ORDERABLES (ABNORMAL) BLOOD GAS 2 ARTERIAL (12/09/2021 5:14 AM EDT) Analysis Performed At Path logis Time Signature pH Art 7.43 7.35 - [facility] 7.45 [facility] pCO2 Art 36 35 - 45 [facility] LABORATORY pO2 Art 67 (L) 85 - 104 [facility] LABORATORY HCO3 Art 23.4 20.0 - [facility] 26.0 [facility] mmol/L [facility] LABORATORY BE Art -0.9 -3.0 - 3.0 [facility] mmol/L [facility] Hgb Blood Gas 13.2 (L) 13.7 - [facility] 16.5 g/dL [facility] O2HB Art 91.3 (L) 94.0 - [facility] 97.0 % [facility] COHB Art 0.4 % [place] [facility] FIO2 Art 35 % [facility] Flow Art 8.0 LPM [facility]OR[facility] PF Ratio Art [address] [facility] LABORATORY Specimen Anatomical Collection Method Collection Time Receive d Time (Source) Location / / Volume Laterality Blood 12/09/2021 5:14 AM 5:14 EDT AM EDT Iker Cuevas MD CHEMISTRY ORDERABLES Performing Organization Address City/State/ZIP [place] [address] POCT Glucose (12/09/2021 4:46 AM EDT) athologist Signature POC Glucose 198 65 - 199 [facility] mg/dL [facility] Comment: Supplemental ranges: <140 mg/dL before meals <180 mg/dL all other times of the day Specimen Anatomical Collection Method Collection Time Receive d Time (Source) Location / / Volume Laterality Blood 12/09/2021 4:46 AM 2 4:46 EDT AM EDT Iker Cuevas MD POINT OF CARE TEST ORDERABLE S Performing Organization Address City/State/[place] [address] (ABNORMAL) POCT Glucose (12/09/2021 3:01 AM EDT) athologist Signature POC Glucose 225 (H) 65 - 199 [facility] mg/dL [facility] Comment: Supplemental ranges: <140 mg/dL before meals <180 mg/dL all other times of the day Specimen Anatomical Collection Method Collection Time Receive d Time (Source) Location / / Volume Laterality Blood 12/09/2021 3:01 AM 2 3:01 EDT AM EDT Iker Cuevas MD POINT OF CARE TEST ORDERABLE S Performing Organization Address City/State/[place] [address] (ABNORMAL) POCT Glucose (12/08/2021 10:55 PM EDT) athologist Signature POC Glucose 327 (H) 65 - 199 [facility] mg/dL [facility] Comment: Supplemental ranges: <140 mg/dL before meals <180 mg/dL all other times of the day Specimen Anatomical Collection Method Collection Time Receive d Time (Source) Location / / Volume Laterality Blood 12/08/2021 10:55 12/08/2021 PM EDT 10:55 PM EDT Iker Cuevas MD POINT OF CARE TEST ORDERABLE S Performing Organization Address City/State/[place] [address] Heparin (unfractionated) Level (12/08/2021 10:03 PM EDT) P athologist Signature Heparin UFH 0.18 IU/mL [facility] [...] Organization Address City/State/ZIP [place] [address] (ABNORMAL) Troponin (12/08/2021 10:03 PM EDT) athologist Signature Troponin-T 0.92 (H) 0.00 - [facility] 0.00 ng/mL [facility] Comment: The 99th percentile [...] additional sample may be indicated. Reference: Third [place] Definition of Myocardial Infarction. Journal of the [employer] 2012;60:1581-98 Specimen Anatomical Collection Method Collection Time Receive d Time (Source) Location / / Volume Laterality Blood 12/08/2021 10:03 12/08/2021 PM EDT 10:31 PM EDT Resulting Agency Comment Spec In Lab Iker Cuevas MD CHEMISTRY ORDERABLES Performing Organization Address City/[facility]/[place] [address] (ABNORMAL) POCT Glucose (12/08/2021 8:22 PM EDT) athologist Signature POC Glucose 429 (H) 65 - 199 [facility] mg/dL [facility] Comment: Supplemental ranges: <140 mg/dL before meals <180 mg/dL all other times of the day Specimen Anatomical Collection Method Collection Time Receive d Time (Source) Location / / Volume Laterality Blood 12/08/2021 8:22 PM 2 8:22 EDT PM EDT Iker Cuevas MD POINT OF CARE TEST ORDERABLE S Performing Organization Address City/[facility]/[place] [address] (ABNORMAL) POCT Glucose (12/08/2021 7:06 PM EDT) P athologist Signature POC Glucose 442 (H) 65 - 199 [facility] mg/dL [facility] Comment: Supplemental ranges: <140 mg/dL before meals <180 mg/dL all other times of the day Specimen Anatomical Collection Method Collection Time Receive d Time (Source) Location / / Volume Laterality Blood 12/08/2021 7:06 PM 2 7:06 EDT PM EDT Iker Cuevas MD POINT OF CARE TEST ORDERABLE S Performing Organization Address City/[facility]/[place] [address] Magnesium (12/08/2021 6:02 PM EDT) athologist Signature Magnesium 0.86 0.69 - 1.07 [facility] mmol/L [facility] LABORATORY Specimen Anatomical Collection Method Collection Time Receive d Time (Source) Location / / Volume Laterality Blood 12/08/2021 6:02 PM 6:36 EDT PM EDT Resulting Agency Comment Spec In Lab Iker Cuevas MD CHEMISTRY ORDERABLES Performing Organization Address City/State/ZIP Code Phon e Number [address] (ABNORMAL) Basic Metabolic Panel (non-fasting) (12/08/2021 6:02 PM EDT) athologist Signature Glucose Lvl 392 (H) 65 - 199 [facility] mg/dL [facility] Comment: [...] Organization Address City/State/[place] [address] (ABNORMAL) Differential, Automated (12/08/2021 6:02 PM EDT) [facility] gist Method Time Signature Neutrophils % 89.5 % [facility] LABORATORY Neutr Abs (ANC) 13.97 (H) 1.70 - [facility] 6.10 [facility] x10(3)/[facility] LABORATORY Lymphocytes % 3.7 % [facility] LABORATORY Lymphocytes Abs 0.6 (L) 0.9 - 3.2 [facility] x10(3)/[facility] LABORATORY Monocytes % 6.1 % [facility] LABORATORY Monocyte Abs 1.0 (H) 0.3 - 0.9 [facility] x10(3)/[facility] LABORATORY Eosinophils % 0.0 % [facility] LABORATORY Eosinophils Abs 0.0 0.0 - 0.4 [facility] x10(3)/[facility] LABORATORY Basophils % 0.2 % [facility] LABORATORY Basophils Abs 0.0 0.0 - 0.1 [facility] x10(3)/[facility] LABORATORY Immature Gran [...] Abs 0.08 (H) 0.00 - 0.04 x10(3)/[facility] LABORATORY Specimen Anatomical Collection Method Collection Time Receive d Time (Source) Location / / Volume Laterality Blood 12/08/2021 6:02 PM 6:36 EDT PM EDT Resulting Agency Comment Spec In Lab Morgan BROWN HEMATOLOGY ORDERABLES Performing Organization Address City/State/ZIP [place] [address] (ABNORMAL) Hemogram (12/08/2021 6:02 PM EDT) Analysis Performed At Patho logist Time Signature WBC 15.6 (H) 4.0 - 9.5 [facility] x10(3)/[facility] LABORATORY RBC 4.05 (L) 4.58 - [facility] 5.54 [facility] x10(6)/[facility] LABORATORY Hemoglobin 11.8 (L) 13.7 - [facility] 16.5 g/dL [facility] Hematocrit 35.8 (L) 40.5 - [facility] 48.5 % [facility] MCV 88.4 82.9 - [facility] 93[facility]1 [facility] LABORATORY MCH 29.1 27.5 - [facility] 32.1 pg [facility]AT[facility] MCHC 33.0 32.0 - [facility] 35.7 g/dL [facility] Platelets 178 145 - 357 [facility] x[facility](3[facility] LABORATORY RDWSD 49.3 (H) 36.0 - [facility] 45.0 [facility] LABORATORY RDWCV 15.1 (H) 11.4 - [facility] 13.8 % [facility] LABORATORY MPV 10.4 7.6 - 12.9 [facility] LABORATORY nRBC % Auto 0.0 % [facility] LABORATORY nRBC Abs Auto 0.000 0.000 - [facility] 0.000 [facility] x10(3)/[facility] LABORATORY Specimen Anatomical Collection Method Collection Time Receive d Time (Source) Location / / Volume Laterality Blood 12/08/2021 6:02 PM 2 6:36 EDT PM EDT Resulting Agency Comment Spec In Lab Morgan BROWN HEMATOLOGY ORDERABLES Performing Organization Address City/State/ZIP Code [place] [address] (ABNORMAL) Troponin (12/08/2021 6:02 PM EDT) athologist Signature Troponin-T 0.89 (H) 0.00 - [facility] 0.00 ng/mL [facility] Comment: The 99th percentile [...] additional sample may be indicated. Reference: Third [place] Definition of Myocardial Infarction. Journal of the [employer] 2012;60:1581-98 Specimen Anatomical Collection Method Collection Time Receive d Time (Source) Location / / Volume Laterality Blood 12/08/2021 6:02 PM 2 6:36 EDT PM EDT Resulting Agency Comment Spec In Lab Iker Cuevas MD CHEMISTRY ORDERABLES Performing Organization Address City/State/ZIP [place] [address] COVID-19 PCR (12/08/2021 5:00 PM EDT) [facility] Method Time Signature SARS-CoV-2 Not Detected [...] using the Simplexa COVID-19 Direct Assay by Siteminisjoi marcum as authorized by the FDA issued [...] of Pathology and Laboratory Medicine at [facility], certified under the Clinical Laboratory Improvement [...] clinical management guidance information are available at [facility] Coronavirus Disease 2019 (COVID-19) webpage under Information fo r Healthcare Professionals (https://www.cdc.gov/coronavirus/2019-nc ov/hcp/index.html). Additional information about this and ot her EUA tests can be found in provider and patient fact sheets at the following FDA website: https://www.fda.gov/medical-devices/gkdeefpnouf-yrnphpy-7984-qekxw-55-wumybotti- ajd-tjxnlsbvtyrdfo-zjtnkpb-devices/sfmsp-xgdazrbtlms-jwqi SARS-CoV-2 Source FACILITIES OFFICER [employer] [facility] LABORATORY Specimen (Source) Anatomical Collection Method Collection Time Re ceived Time Location / / Volume Laterality Nasopharyngeal Swab 12/08/2021 5:00 12/08 PM EDT 6:03 PM EDT Comment: Symptoms->Surveillance Resulting Agency Comment Spec In Lab Iker Cuevas MD MICROBIOLOGY - GENERAL ORDER [place] Performing Organization Address City/[facility] Phon e Number [place] [phone] EKG 12 Lead (12/08/2021 4:40 PM EDT) Component Value Ref Range Test Analysis Performed Pathologis t Method Time At Signature Ventricular rate 78 BPM MUSE SYSTEM Atrial Rate 78 BPM MUSE SYSTEM P-R Interval 152 ms MUSE SYSTEM QRS Duration 96 ms MUSE SYSTEM Q-T Interval 396 ms MUSE SYSTEM QTC Calculated 451 ms MUSE SYSTEM (Bezet) Calculated P [place] 44 degrees MUSE SYSTEM Calculated R [place] -31 degrees MUSE SYSTEM Calculated T [place] 124 degrees MUSE SYSTEM INTERPRETATION Normal sinus [...] MD ECG ORDERABLES Performing Organization Address City/[facility] Phon e Number MUSE SYSTEM (ABNORMAL) POCT Glucose (12/08/2021 4:34 PM EDT) P athologist Signature POC Glucose 400 (H) 65 - 199 [facility] mg/dL [facility] Comment: Supplemental ranges: <140 mg/dL before meals <180 mg/dL all other times of the day Specimen Anatomical Collection Method Collection Time Receive d Time (Source) Location / / Volume Laterality Blood 12/08/2021 4:34 PM 4:34 EDT PM EDT Iker Cuevas MD POINT OF CARE TEST ORDERABLE S Performing Organization Address City/State/ZIP Code Phon [place] [facility] [place] [address] documented in this encounter [...] atherosclerosis of unspecified type of vessel, [place] or graft Cardiomyopathy, ischemic Other specified forms [...] 75 mg 0834 (Given - Provider: Emma Gacria RN) 0829 (Given - Provider: Lilliana Esteban [...] 1 mg( Linked Group 2) 08 ([facility] Hold - Provider: Admin Adt - Reason: Transfer to a Procedural area)1230 ([facility] Unhold - Provider: Admin Adt) 1 mg, [...] (Glutose) 40% oral geL(Linked Group 2) 08 ([facility] Hold - Provider: Admin Adt - Reason: Transfer to a Procedural area)1230 ([facility] Unhold - Provider: Admin Adt) 15-30 g [...] Routine niCARdipine (Cardene) (100 mcg/mL) dilution (BUSINESS SERVICES TECH) (CANCELED) 1030 (Given - Provider: Vitaliy [...] area)1230 ([facility] Unhold - Provider: Admin Adt) 1 tablet, Oral, 2 TIMES DAILY PRN, Start ing on Wed12/09/21 at 1628, Until Wed12/12/21 at 1312, Constipation, Routine sodium chloride 0.9 % (flush) (BD PosiFlush Normal Sean ine 0.9) flush 5-20 mL 08 ([facility] Hold - Provider: Admin Adt - Reason: Transfer to a Procedural area)1230 ([facility] Unhold - Provider: Admin Adt) 5-20 mL, [...] episode. & nbsp; For persistent hypoglycemia, con motor equipment commanding officer longer-acting treatment for the duration of [...]
Routine documented in this encounter Care Teams Filtration Plant Mechanic Relationship Specialty Start Date End Date Lovely Vicente MD PCP - General 04/16/[address] [place] [address] [address] [place] [address] documented as of this encounter
--- OUTSIDE RECORDS SUMMARY | 2022-05-08 02:20 | XMS_ITS | Encounter Summary ---
:1945 Author Organization [facility] [place] [address] Care Team Providers Name Role Phone Lovely Vicente MD Primary Care Provider Encounter Details Date Type Department Care Team Description 03/20/2021 Ancillary Procedure Radiology Library [place] [address] [place] [address] [phone] Social History Tobacco Use Types Packs/Day Years [...] MD [facility] er [place], [place] [address] (Wo rk) 05/28/2022 Laboratory Appointment Lab 05/28/2022 Office Visit Cardiology Zulma Dolan MD [facility] [place] [address] Liz Poole PA [facility] [place] [address] 06/10/2022 Office Visit Dermatology Laura Scherer MD [facility] ER [address] [place], [place] [address] (Wo rk) documented as [...] Organization Address City/State/ZIP Code Phon e Number [place], [place] documented in this encounter Visit Diagnoses Not on filedocumented in this encounter Care Teams Developer Evangelist Relationship Specialty Start Date End Date Lovely Vicente MD PCP - General 04/16/[address] [place] [address] documented as of this encounter
--- OUTSIDE RECORDS SUMMARY | 2022-05-08 02:20 | XMS_ITS | Encounter Summary ---
:1945 Author Organization [facility] [address] Care Team Providers Name Role Phone Lovely Vicente MD Primary Care Provider Encounter Details Date Type Department Care Team Description 12/08/2021 External Results Non-Invasive Cardiology Lab Mar y None [facility] [place] [address] Social History Tobacco Use Types Packs/Day [...] Dolan MD [facility] [place], [place] [address] (Wo rk) 05/28/2022 Laboratory Appointment Lab 05/28/2022 Office Visit Cardiology Zulma Dolan MD [facility] [place] [address] Liz Poole PA [facility] [place] [address] 06/10/2022 Office Visit Dermatology Laura Scherer MD [facility] [address] [place], [place] [address] (Wo rk) documented as [...] filedocumented in this encounter Care Teams Signal Apprentice Relationship Specialty Start Date End Date Lovely Vicente MD PCP - General 04/16/[address] [place] [address] documented as of this encounter
--- OUTSIDE RECORDS SUMMARY | 2022-05-08 02:20 | XMS_ITS | Encounter Summary ---
:1945 Author Organization [place] [address] Care Team Providers Name Role Phone Lovely Vicente MD Primary Care Provider Encounter Details Date Type Department Care Team Description 03/20/2021 Ancillary Procedure Radiology Library [place] [address] [place] [address] [phone] Social History Tobacco Use Types Packs/Day Years [...] MD [facility] er [address] [place], [place] [address] (Wo rk) 05/28/2022 Laboratory Appointment Lab 05/28/2022 Office Visit Cardiology Zulma Dolan MD [facility] [place] [address] Liz Poole PA [facility] [place] [address] 06/10/2022 Office Visit Dermatology Laura Scherer MD [facility] ER [address] [place], [place] [address] (Wo rk) documented as of [...] Organization Address City/State/ZIP Code Phon e Number [place], [place] documented in this encounter Visit Diagnoses Not on filedocumented in this encounter Care Teams Loan Coordinator Relationship Specialty Start Date End Date Lovely Vicente MD PCP - General 04/16/[address] [place] [address] documented as of this encounter
--- OUTSIDE RECORDS SUMMARY | 2022-05-08 02:20 | XMS_ITS | Encounter Summary ---
:1945 [place] [address] Care Team Providers Name Role Phone Lovely Vicente MD Primary Care Provider Encounter Details Date Type Department Care Team Description 03/20/2021 Telephone [place]rology [place] [facility] [place] Gaston MD [facility] [place] [address] [place] [address] [phone] (Wo rk) Social History Tobacco Use Types [...] Gaston MD Department of Neurology Pager # [phone] documented in this encounter Plan of Treatment Upcoming Encounters Date Type Specialty Care Team Description 05/28/2022 Appointment Cardiology Zulma Dolan MD [facility] [place], [place] [address] (Wo rk) 05/28/2022 Laboratory Appointment Lab 05/28/2022 Office Visit Cardiology Zulma Dolan MD [facility] [place] [address] Liz Poole PA [facility] [place] [address] 06/10/2022 Office Visit Dermatology Laura Scherer MD [facility] DR [address] [place], [place] [address] (Wo rk) documented as of this encounter Visit Diagnoses Not on filedocumented in this encounter Care Teams Livestock Buyer Relationship Specialty Start Date End Date Lovely Vicente MD PCP - General 04/16/[address] [place] [address] documented as of this encounter
--- OUTSIDE RECORDS SUMMARY | 2022-05-08 02:20 | XMS_ITS | Encounter Summary ---
:1945 Author Organization [facility] Address [facility] [place] [address] Care Team Providers Name Role Phone Lovely Vicente MD Primary Care Provider Encounter Details Date Type Department Care Team Description 01/02/2020 Office Visit Dermatology at [facility] ctinic keratoses; Abdelrahman HOOPER MD History of melanoma; [address] [facility] History of dysplastic nevus; [place] [address] Multiple benign nevi; [phone] [facility] Seborrheic yossi [place]; RD-DERMATOLGY Skin exam for malignant neoplasm [place], [place] [address] Social History Tobacco Use [...] Dolan MD [facility] Dr [place], [place] [address] (Wo lissa) 05/28/2022 Laboratory Appointment Lab 05/28/2022 Office Visit Cardiology Zulma Dolan MD [facility] [place] [address] [facility] [place] [address] 06/10/2022 Office Visit Dermatology Laura Scherer MD [facility] [address] [place], [place] [address] (Wo lissa) documented as of [...] documented in this encounter Care Teams Supervisor [employer] Relationship Specialty Start Date End Date Lovely Vicente MD PCP - General 04/16/15 [facility] [address] [place] [address] documented as of this encounter
--- OUTSIDE RECORDS SUMMARY | 2022-05-08 02:20 | XMS_ITS | Encounter Summary ---
:1945 Author Organization [facility] [address] Care Team Providers Name Role Phone Lovely Vicente MD Primary Care Provider Reason for Visit Auth/Cert Specialty Diagnoses / Procedures Referred By Contact Refer red To Contact Diagnoses NSTEMI Procedures emerg ipi Referral ID Status Reason Start Date Expiration Date Visits Requ ested Visits Authorized [id number] 1 1 Encounter Details Date Type Department Care Team Description 12/10/2021 Surgery Clam Shovel Operator Asa Coulter MD CARDIAC CATHETERIZATION [facility] [address] [place] [address] [place] [address] [phone] (Wo rk) Social History Tobacco Use Types [...] Peter PA-C Kelly LaFlamme PA-C Cardiovascular Medicine [phone] Discharge Diagnoses (Hospital Problems) and Secondary Diagnoses [...] 3.75 guiding catheter and a 3.5 Fr [place] 20 Mhz using Manual pullback. Imaging was successful. Image quality was good. The ostial LCX showed moderate diffuse atherosclerotic plaque with scattered three quadrant calcification. Measurements were performed after pre-dilation. Post Intervention: The stent was well expanded and apposed. Intravascular Ultrasound was performed in the distal LM using a 7 Fr EBU 3.75 guiding catheter and a 3.5 Fr [place] 20 Mhz using Manual pullback. Imaging was successful. Image quality was good. The distal LM showed moderate diffuse atherosclerotic plaque. Post Intervention: The stent was well expanded and apposed. Indication for Intervention: Coronary intervention was indicated for primary therapy for an acute myocardial infarction. The priority for the procedure was Urgent. The [facility] indication for the procedure was [...] of this regimen. Consult [facility] Interventional Cardiology [...] and cardiomegaly. ?? TTE from [facility] 12/08/21 ? Prior Cardiac Studies: TTE 07/28/2019 [...] in 2012 who presented to [facility] with 1 week progressing breathlessness with patient [...] Liz Poole PA-C. ?? At [facility], respiratory distress with hypoxia 86% on room [...] and diet drinks did not cause his PA. This is what his thought was the [...] appointments: During 8am-5pm Wednesday through Wednesday call [phone] to speak with a nurse in the cardiology clinic All other times call [phone] and ask to speak to the rn cardiology senior management consultant. Return to work: One week Driving: No driving for 48 hours after catheterization. Follow up Appointments: PCP Lovely Vicente MD [phone] to see patient at the end of December for annual check up. Patient to see Dr. Lorenzana at 1120 am at December 19 for a post hospital check up. Drying Equipment Operator Dr. De Oliveira to see you in [facility]. Left a message for office to set a date and time. Please call [phone] Nobles to see the patient for a same day cath in 2-3 weeks from now. Office to call with a date and time. For questions please call [phone] Home oxygen therapy: N/A Arrangements for VNA/home care: none Future Appointments and Orders Future Orders Complete By Expires Basic Metabolic Panel (non-fasting) [LAB15 Custom] 12/19/2021 (Approximate) 12/12/2022 Process Instructions: INCLUDES: Calcium, BUN, Creat, GFR, Glucose, Lytes Scheduling Instructions: Comments: Questions: Referral to Cardiac Rehab [HKQ032 Custom] As directed Process Instructions: If no [...] appointments: During 8am-5pm Wednesday through Wednesday call [phone] to speak with a nurse in the cardiology clinic All other times call [phone] and ask to speak to the rn cardiology senior management consultant. Return to work: One week Driving: No driving for 48 hours after catheterization. Follow up Appointments: PCP Lovely Vicente MD [phone] to see patient at the end of December for annual check up. Patient to see Dr. Lorenzana at 1120 am at December 19 for a post hospital check up. Drying Equipment Operator Dr. De Oliveira to see you in [facility]. Left a message for office to set a date and time. Please call [phone] Nobles to see the patient for a same day cath in 2-3 weeks from now. Office to call with a date and time. For questions please call [phone] Home oxygen therapy: N/A Arrangements for VNA/home [...] Progress Note Patient Name: Don Fatima Service: BRACER / PA Responsible Attending: Ifeanyi Truong MD [...] was given Lasix 80mg IV x1 in candlemaking laborer. Tolerated procedure well. Home today at [...] congestion and cardiomegaly. TTE from [facility] 12/08/21 Prior Cardiac Studies: TTE 07/28/2019 SUMMARY: [...] with MD Janneth Neville PA 12/12/2021 Pager [phone] Associated attestation - Ifeanyi Truong MD - [...] meal) Desirae Jett APRN [facility] Endocrinology Diabetes Management Pager [phone] 20 minutes of this 35 minute visit [...] Progress Note Patient Name: Don Fatima Service: BRACER / PA Responsible Attending: Iker Cuevas MD [...] + trop. Known CAD with hx of PA and CABG. DM. MARIA VICTORIA.ICM. ??? ASHD [...] was given Lasix 80mg IV x1 in candlemaking laborer. Tolerated procedure well. Review of Systems: [...] congestion and cardiomegaly. TTE from [facility] 12/08/21 Prior Cardiac Studies: TTE 07/28/2019 SUMMARY: [...] and answered his questions. Iker Cuevas MD [facility] Total time spent on review of records prior to visit, face to face time with patient during visit, documentation, and coordination of care with other clinicians: 25 minutes. . Iker Cuevas MD - 12/10/2021 12:30 PM EDT Images from the original note were not included. Inpatient Cardiology Progress Note Patient Name: Don Fatima Service: BRACER / PA Responsible Attending: Iker Cuevas MD Reason for continued hospitalization: NSTEMI- s/p R/LHC- PCW 27, occluded SVGs s/p PCI to ostial LCX ADHF and hypoxia- IV diuresis Active Problems: Active Hospital Problems Diagnosis ??? Admitted with 2 days of sob, hypoxemia, and + trop. Known CAD with hx of PA and CABG. DM. MARIA VICTORIA.ICM. ??? ASHD [...] was given Lasix 80mg IV x1 in candlemaking laborer. Tolerated procedure well. Review of Systems: [...] 1.13* 0.92* 0.89* Pertinent Radiographic/Diagnostic Results: R/[facility] 12/10/21 Hemodynamics: Right Heart Pressures Resting: [...] congestion and cardiomegaly. TTE from [facility] 12/08/21 Prior Cardiac Studies: TTE 07/28/2019 SUMMARY: [...] Discussed with MD Migdalia Peter PA-C Pager #[phone] 12/10/2021 Cardiology Attending Note I have seen [...] updated and given pictures. Iker Cuevas MD [facility] Total time spent on review of records prior to visit, face to face time with patient during visit, documentation, and coordination of care with other clinicians: 35 minutes. Iker Cuevas MD - 12/09/2021 7:28 AM EDT Images from the original note were not included. Inpatient Cardiology Progress Note Patient Name: Don Fatima Service: BRACER / PA Responsible Attending: Iker Cuevas MD Reason for continued hospitalization: NSTEMI- awaiting R/LHC ADHF and hypoxia- IV diuresis, R/LHC Active Problems: Active Hospital Problems Diagnosis ??? Admitted with 2 days of sob, hypoxemia, and + trop. Known CAD with hx of PA and CABG. DM. MARIA VICTORIA.ICM. ??? ASHD [...] congestion and cardiomegaly. TTE from [facility] 12/08/21 Prior Cardiac Studies: TTE 07/28/2019 SUMMARY: [...] Discussed with MD Migdalia Peter PA-C Pager #[phone] 12/09/2021 Cardiology Attending Note I have seen and examined the patient. I agree with the findings above. Developed CHF early this am despite getting more iv lasix last evening. Feeling better now. INR > 2. Lungs still wet at base. Echo at [facility] showed EF 35% with mild mod MR slightly lower than last value here. -vit K 2.5 orally to facilitate correction of INR- this will take 12-24 hours to take effect -furosemide 80 mg iv now -postpone right and left heart cath until tomorrow given INR and ADHF -increase statin to achieve LDL < 70 -CPAP tonight Iker Taverass MD [facility] Total time spent on review of [...] + trop. Known CAD with hx of PA and CABG. DM. MARIA VICTORIA.ICM. ??? ASHD [...] in 2012 who presented to [facility] with 1 week progressing breathlessness with patient [...] with Liz Poole PA-C. At [facility], respiratory distress with hypoxia 86% on room [...] SETUP performed by Manny Mcknight MD at [facility] ??? PRO AMPUTATION FOOT, TRANSMETATARSAL Right 08/09/2017 AMPUTATION, TRANSMETATARSAL (WRVU 12.71) performed by Yonathan Smith MD at [facility] ??? PRO CABG, ARTERIAL, SINGLE N/A 07/07/2017 @CABG, USING ARTERIAL GRAFT;SINGLE ARTERIAL GRAFT (WRVU 33.75) performed by Yuan Retana MD at [facility] ??? PRO CABG, ARTERY-VEIN, TWO N/A 07/07/2017 @CABG, TWO VENOUS GRAFTS & ARTERIAL GRAFT (WRVU 7.93) performed by Yuan Retana MD at [facility] ??? PRO COLONOSCOPY, REMV LESN, SNARE 01/16/2014 COLONOSCOPY, POLYPECTOMY, REMOVAL LESION BY SNARE performed by Nohemi Jaimes MD at [facility] ENDOSCOPY ??? PRO DRESSING CHANGE UNDER ANESTHESIA Right 08/11/2017 (MSURG) DRESSING CHANGE (FOR OTHER THAN IVAN) UNDER ANES. (WRVU 0.86) performed by Lamar Smith MD at [facility] ??? PRO ENDOSCOPY W/VIDEO-ASST VEIN HARVEST, CABG Right 07/07/2017 ENDOSCOPIC HARVEST VEIN(S) FOR CABG (WRVU 0.31) performed by Yuan Retana MD at [facility] ??? PRO THYROIDECTOMY 03/28/2013 THYROIDECTOMY, TOTAL OR COMPLETE performed by Manny Mcknight MD at [facility] Significant Family History: Family [...] - 199 mg/dL Labs at [facility] 12/08/2021-troponin I 8004 (UN L <60), 12/07- [...] for ADRs. Trend troponins. Admission EKG. [facility] 12/09; consented. TTE. Telemetry monitoring, daily [...] #Diet-carb control; n.p.o. after midnight for [facility] #DVT prophy- heparin infusion #GI prophy- PPI Discussed with MD Morgan Peter PA-C APP2 pager [phone] 12/08/2021 Cardiology Attending Note I have seen [...] is type 1 due to graft or [place] coronary stenosis vs acute injury from CHF. 3. PAF: currrently in NSR. Have replaced warfarin with heparin 4. PAD: stable 5. DM: stable 6. CKD: will monitor and minimize contrast. Pt very appreciative of Dr. Yuan Retana's care in 2018. Will let him know patient is here. Iker Cuevas MD [facility] documented in this encounter Miscellaneous Notes [...] Type: *No Product type* / Secondary Insurance: [employer] [place] Prescription Coverage: Yes This plan was [...] cath without complications. Migdalia Parker PA-C Pager #[phone] 12/10/2021 Initial Assessments - Nick Georges RN [...] COVID test: Lab Results Component Value Date [id number] Not Detected 12/08/2021 Past medical History: Past [...] patient receiving care at [facility] must abide by [place] law. The hierarchy [...] The agent with financial power of employment law attorney or a conservator appointed in [...] - standard, cane - straight Home Address: [address] [place] [address] [place] [address] Social & Family Supports: All names listed below confirmed with patient as current and correct Extended Emergency Contact Information Primary Emergency Contact: Kisha Fatima Address: [address] [place] [address] [place] [address] [facility] Mobile Relation: Spouse Secondary Emergency Contact: Elba Swenson Address: [place], [place] [id number] [place] [address] Mobile Relation: Child Current Care Provided by: [...] Type: *No Product type* / Secondary Insurance: [facility] Prescription Coverage: Yes Preferred Pharmacy: [facility] Home Delivery [facility] [address] [id number] - [place], [place] - [address] [address] [place] Status: Patient is a : unable to assess Primary Care Provider: Lovely Vicente MD [phone] Patient/Caregiver Goals of Treatment: Get out of here Potential Needs for Transition of Care: none Agency Referrals: none patient has used [facility] in the past Transportation: no concerns Transportation Anticipated: family or friend will provide Concerns to be Addressed: patient refuses services, discharge planning Assessment: Patient is admitted to [facility] Service pager [phone] for 76 y.o.??male??with h/o??CAD s/p 3vCABG (THOMPSON-LAD, [...] status on current unit. Nick Georges RN gas burner operator, Office of Care Management Pager: [phone] Brief Op Note - Vitaliy Nobles MD - 12/10/2021 8:31 AM EDT Images from the original note were not included. [facility] [place] [address] [address] CORONARY ANGIOGRAM AND PERCUTANEOUS CORONARY INTERVENTION REPORT Patient: Don Fatima : 1945 MR number: [id number] Date of Service: 12/10/2021 Piggery Worker: Vitaliy Nobles MD Fellow: [place] MD [...] managed by his PCP. Lives in [place], [place] with his . States that he [...] 5 gm carb ratio for each meal) snf diabetes care: Medications - Outpatient treatment regimen recommendations pending based on the hospital course. Monitoring - continue BG tid ac & hs Diet - low fat/low carb diet Exercise - weight-bearing exercise 30 min/day, as tolerated Thank you for allowing us to provide care for your patient Desirae Jett APRN Endocrinology Pager [phone] 70 minutes of this 80 minute visit [...] + trop. Known CAD with hx of PA and CABG. DM. MARIA VICTORIA.ICM. ??? ASHD [...] for further details. STEPHANIE Rebolledo 12/08/2021 Pager [phone] documented in this encounter Plan of Treatment Upcoming Encounters Date Type Specialty Care Team Description 05/28/2022 Appointment Cardiology Zulma Dolan MD [facility] [place], [place] [address] (Wo lissa) 05/28/2022 Laboratory Appointment Lab 05/28/2022 Office Visit Cardiology Zulma Dolan [place] [address] Liz Poole PA [facility] [place] [address] 06/10/2022 Office Visit Dermatology Laura Scherer MD [facility] DR [facility] [facility] [place], [place] [address] (Wo rk) Scheduled Referrals Name [...] 65 - 199 [facility] mg/dL [facility] Comment: Supplemental ranges: <140 mg/dL before meals <180 mg/dL all other times of the day Specimen Anatomical Collection Method Collection Time Receive d Time (Source) Location / / Volume Laterality Blood 12/12/2021 7:42 AM 7:42 EDT AM EDT Ifeanyi Truong MD POINT OF CARE TEST ORDERABLE S Performing Organization Address City/State/[place] [address] (ABNORMAL) Differential, Automated (12/12/2021 4:51 AM EDT) athologist Signature Neutrophils % 75.4 % [facility] Neutr Abs (ANC) 5.95 1.70 - [facility] 6.10 [facility] x10(3)/[facility] LABORATORY Lymphocytes % 12.2 % [facility] Lymphocytes Abs 1.0 0.9 - 3.2 [facility] x10(3)/[facility] LABORATORY Monocytes % 9.5 % [facility] Monocyte Abs 0.8 0.3 - 0.9 [facility] x10(3)/[facility] LABORATORY Eosinophils % 1.8 % [facility] Eosinophils Abs 0.1 0.0 - 0.4 [facility] x10(3)/[facility] LABORATORY Basophils % 0.5 % [facility] Basophils Abs 0.0 0.0 - 0.1 [facility] x10(3)/[facility] LABORATORY Immature Gran [...] Address City/State/ZIP Code Phon e Number [address] (ABNORMAL) Hemogram (12/12/2021 4:51 AM EDT) Analysis Performed At Patho logist Time Signature WBC 7.9 4.0 - 9.5 [facility] x[facility](3[facility] LABORATORY RBC 4.19 (L) 4.58 - [place] 5.54 [facility] x10(6)/[facility] LABORATORY Hemoglobin 12.1 (L) 13.7 - [place] 16.5 g/dL [facility] LABORATORY Hematocrit 36.7 (L) 40.5 - [facility] 48.5 % [facility] LAB[facility]ORY MCV 87.6 82.9 - [facility] 93.1 [facility] LABORATORY MCH 28.9 27.5 - [place] 32.1 pg [facility] LABORATORY MCHC 33.0 32.0 - [place] 35.7 g/dL [facility] LABORATORY Platelets 231 145 - 357 [facility] x10(3)/[facility] LABORATORY RDWSD 47.2 (H) 36.0 - [facility] RYAN 45.0 [facility] LABORATORY RDWCV 14.6 (H) 11.4 - [facility] RYAN 13.8 % [facility] LABORATORY MPV 9.5 7.6 - 12.9 [facility] RYAN [facility] LABORATORY nRBC % Auto 0.0 % [facility] nRBC Abs Auto 0.000 0.000 - [place] 0.000 [facility] x10(3)/[facility] LABORATORY Specimen Anatomical Collection Method Collection Time Receive d Time (Source) Location / / Volume Laterality Blood 12/12/2021 4:51 AM 2 5:06 EDT AM EDT Resulting Agency Comment Spec In Lab Bijan Sun MD HEMATOLOGY ORDERABLES Performing Organization Address City/[facility]/[place] [address] (ABNORMAL) Prothrombin Time (12/12/2021 4:51 AM EDT) athologist Signature PT 14.9 (H) 9.4 - 12.5 [facility] LABORATORY INR 1.3 [facility] LABORATORY [...] Organization Address City/State/[place] [address] (ABNORMAL) BMP w/fasting Glucose (12/12/2021 4:51 AM EDT) athologist Signature Glucose 152 (H) 65 - 99 [facility] Fasting mg/dL [facility] LAB[facility]ORY Comment: ?Fasting* Glucose Interpretive [...] of Diabetes Mellitus, Position Statement from the [employer]. ??Diabete s Care, Volume 33, [...] Organization Address City/State/[place] [address] Magnesium (12/12/2021 4:51 AM EDT) athologist Signature Magnesium 1.02 0.69 - 1.07 [place] mmol/L [facility] LABORATORY Specimen Anatomical Collection Method Collection Time Receive d Time (Source) Location / / Volume Laterality Blood 12/12/2021 4:51 AM 2 5:06 EDT AM EDT Resulting Agency Comment Spec In Lab Iker Cuevas MD CHEMISTRY ORDERABLES Performing Organization Address City/[facility]/ZIP Code Phon e Number [address] POCT Glucose (12/12/2021 3:43 AM EDT) athologist Signature POC Glucose 138 65 - 199 [place] mg/dL [facility] LABORATORY Comment: Supplemental ranges: <140 mg/dL before meals <180 mg/dL all other times of the day Specimen Anatomical Collection Method Collection Time Receive d Time (Source) Location / / Volume Laterality Blood 12/12/2021 3:43 AM 2 3:43 EDT AM EDT Iker Cuevas MD POINT OF CARE TEST ORDERABLE S Performing Organization Address City/State/ZIP Code Phon e Number [address] POCT Glucose (12/11/2021 11:44 PM EDT) athologist Signature POC Glucose 124 65 - 199 [place] mg/dL [facility] LABORATORY Comment: Supplemental ranges: <140 mg/dL before meals <180 mg/dL all other times of the day Specimen Anatomical Collection Method Collection Time Receive d Time (Source) Location / / Volume Laterality Blood 12/11/2021 11:44 12/11/2021 PM EDT 11:44 PM EDT Iker Cuevas MD POINT OF CARE TEST ORDERABLE S Performing Organization Address City/State/ZIP Code Phon e Number [address] (ABNORMAL) POCT Glucose (12/11/2021 8:12 PM EDT) athologist Signature POC Glucose 200 (H) 65 - 199 [place] mg/dL [facility] LABORATORY Comment: Supplemental ranges: <140 mg/dL before meals <180 mg/dL all other times of the day Specimen Anatomical Collection Method Collection Time Receive d Time (Source) Location / / Volume Laterality Blood 12/11/2021 8:12 PM 2 8:12 EDT PM EDT Iker Cuevas MD POINT OF CARE TEST ORDERABLE S Performing Organization Address City/State/[place] [address] (ABNORMAL) POCT Glucose (12/11/2021 6:50 PM EDT) P athologist Signature POC Glucose 245 (H) 65 - 199 [place] mg/dL [facility] LABORATORY Comment: Supplemental ranges: <140 mg/dL before meals <180 mg/dL all other times of the day Specimen Anatomical Collection Method Collection Time Receive d Time (Source) Location / / Volume Laterality Blood 12/11/2021 6:50 PM 2 6:50 EDT PM EDT Iker Cuevas MD POINT OF CARE TEST ORDERMTATHEW S Performing Organization Address City/State/[place] [address] (ABNORMAL) POCT Glucose (12/11/2021 4:00 PM EDT) P athologist Signature POC Glucose 383 (H) 65 - 199 [facility] RYAN mg/dL [facility] LABORATORY Comment: Supplemental ranges: <140 mg/dL before meals <180 mg/dL all other times of the day Specimen Anatomical Collection Method Collection Time Receive d Time (Source) Location / / Volume Laterality Blood 12/11/2021 4:00 PM 2 4:00 EDT PM EDT Iker Cuevas MD POINT OF CARE TEST ORDERABLE S Performing Organization Address City/State/[place] [address] (ABNORMAL) POCT Glucose (12/11/2021 12:01 PM EDT) P athologist Signature POC Glucose 342 (H) 65 - 199 [place] mg/dL [facility] LABORATORY Comment: Supplemental ranges: <140 mg/dL before meals <180 mg/dL all other times of the day Specimen Anatomical Collection Method Collection Time Receive d Time (Source) Location / / Volume Laterality Blood 12/11/2021 12:01 12/11/2021 PM EDT 12:01 PM EDT Iker Cuevas MD POINT OF CARE TEST ORDERABLE S Performing Organization Address City/State/ZIP Code [place] [address] COVID-19 PCR (12/11/2021 10:13 AM EDT) [facility] Method Time Signature SARS-CoV-2 Not Detected Not Detected [place] RNA [facility] LABORATORY [...] diagnosis of COVID-19 is performed using the [employer] RONNA S-CoV-2 Assay as authorized by the FDA Emergency Use Authorization (EUA). This EUA assay is intended for In-vitro Diagnostic (IVD) use with respiratory sp ecimens such as nasopharyngeal swabs collected from individuals during the ac [place] phase of infection. This assay is performed based on the instructions for use provided by [employer] and additional guidance provided by CDC and FDA. Testing is performed in the Clinical Genomics and Advanced Technolog y Laboratory within the Department of Pathology and Laboratory Medicine at [facility], certified under the Clinical Laboratory Improvement [...] is infected. As required or requested by [facility], positive specimens may be sent for additional [...] clinical management guidance information are available at [facility] CDC Coronavirus Disease 2019 (COVID-19) webpage under Information fo r Healthcare Professionals (https://www.cdc.gov/coronavirus/2019-nc ov/hcp/index.html) Additional information about this and ot her EUA tests can be found in provider and patient fact sheets at the following FDA website: https://www.fda.gov/medical-devices/gosbualvlsw-fvdwolz-5773-qxipk-73-mdkcmasui- dlo-dtihuokkbeacgf-vioxlia-devices/dvgpx-ecxgdurjfzd-azgg SARS-Cov-2 RNA Source [facility] Swab [facility] LABORATORY Specimen (Source) Anatomical Collection Method Collection Time Re ceived Time Location / / Volume Laterality Nasopharyngeal Swab 12/11/2021 10:13 11/23 AM EDT 11:16 AM EDT Comment: Symptoms->Surveillance Resulting Agency Comment Spec In Lab Iker Cuevas MD MICROBIOLOGY - GENERAL ORDER [place] Performing Organization Address City/State/[place] [address] POCT Glucose (12/11/2021 7:34 AM EDT) P athologist Signature POC Glucose 198 65 - 199 [facility] mg/dL [facility] LABORATORY Comment: Supplemental ranges: <140 mg/dL before meals <180 mg/dL all other times of the day Specimen Anatomical Collection Method Collection Time Receive d Time (Source) Location / / Volume Laterality Blood 12/11/2021 7:34 AM 2 7:34 EDT AM EDT Iker Cuevas MD POINT OF CARE TEST ORDERABLE S Performing Organization Address City/State/[place] [address] (ABNORMAL) POCT Glucose (12/11/2021 5:07 AM EDT) P athologist Signature POC Glucose 208 (H) 65 - 199 [facility] mg/dL [facility] LABORATORY Comment: Supplemental ranges: <140 mg/dL before meals <180 mg/dL all other times of the day Specimen Anatomical Collection Method Collection Time Receive d Time (Source) Location / / Volume Laterality Blood 12/11/2021 5:07 AM 2 5:07 EDT AM EDT Iker Cuevas MD POINT OF CARE TEST ORDERABLE S Performing Organization Address City/State/[place] [address] (ABNORMAL) Differential, Automated (12/11/2021 4:28 AM EDT) Patholo gist Method Time Signature Neutrophils % 79.6 % [facility] LABORATORY Neutr Abs (ANC) 7.01 (H) 1.70 - [facility] 6.10 [facility] x10(3)/[facility] LABORATORY Lymphocytes % 9.1 % [facility] LABORATORY Lymphocytes Abs 0.8 (L) 0.9 - 3.2 [facility] x10(3)/[facility] LABORATORY Monocytes % 9.2 % [facility] LABORATORY Monocyte Abs 0.8 0.3 - 0.9 [facility] x10(3)/[facility] LABORATORY Eosinophils % 1.3 % [facility] LABORATORY Eosinophils Abs 0.1 0.0 - 0.4 [facility] x10(3)/[facility] LABORATORY Basophils % 0.5 % [facility] LABORATORY Basophils Abs 0.0 0.0 - 0.1 [facility] x10(3)/[facility] LABORATORY Immature Gran % 0.30 % [...] 0.00 - 0.04 x10(3)/[facility] LABORATORY Specimen Anatomical Collection Method Collection Time Receive d Time (Source) Location / / Volume Laterality Blood 12/11/2021 4:28 AM 4:37 EDT AM EDT Resulting Agency Comment Spec In Lab Bijan Sun MD HEMATOLOGY ORDERABLES Performing Organization Address City/State/ZIP Code Phon e Number [place] [id number] (ABNORMAL) Hemogram (12/11/2021 4:28 AM EDT) Analysis Performed At Patho logist Time Signature WBC 8.8 4.0 - 9.5 [facility] x10(3)/[facility] LABORATORY RBC 4.15 (L) 4.58 - [place] [facility] 5.54 [facility] x10(6)/[facility] LABORATORY Hemoglobin 11.9 (L) 13.7 - [facility] g/dL [facility] LABORATORY Hematocrit 36.9 (L) 40.5 - [facility] RYAN 48.5 % [facility] LABORATORY MCV 88.9 82.9 - [facility] RYAN 93.1 [facility] LABORATORY MCH 28.7 27.5 - [place] 32.1 pg [facility] LABORATORY MCHC 32.2 32.0 - [facility] 35.7 g/dL [facility] LABORATORY Platelets 211 145 - 357 [facility] x10(3)/[facility] LABORATORY RDWSD 48.3 (H) 36.0 - [facility] RYAN 45.0 [facility] LABORATORY RDWCV 14.8 (H) 11.4 - [facility] RYAN 13.8 % [facility] LABORATORY MPV 9.6 7.6 - 12.9 [facility] LABORATORY nRBC % Auto 0.0 % [facility] LABORATORY nRBC Abs Auto 0.000 0.000 - [facility] 0.000 [facility] x10(3)/[facility] LABORATORY Specimen Anatomical Collection Method Collection Time Receive d Time (Source) Location / / Volume Laterality Blood 12/11/2021 4:28 AM 2 4:37 EDT AM EDT Resulting Agency Comment Spec In Lab Bijan Sun MD HEMATOLOGY ORDERABLES Performing Organization Address City/[facility]/ZIP [facility] [place] [address] (ABNORMAL) Prothrombin Time (12/11/2021 4:28 AM EDT) P athologist Signature PT 17.7 (H) 9.4 - 12.5 [facility] LABORATORY INR 1.6 [facility] LABORATORY [...] [facility]/[place] [address] (ABNORMAL) BMP w/fasting Glucose (12/11/2021 4:28 AM EDT) P athologist Signature Glucose 207 (H) 65 - 99 [facility] Fasting mg/dL [facility] LABORATORY Comment: ?Fasting* Glucose Interpretive [...] of Diabetes Mellitus, Position Statement from the [employer]. ??Diabete s Care, Volume 33, [...] [facility]/[place] [address] Magnesium (12/11/2021 4:28 AM EDT) athologist Signature Magnesium 1.04 0.69 - 1.07 [facility] mmol/L [facility] LABORATORY Specimen Anatomical Collection Method Collection Time Receive d Time (Source) Location / / Volume Laterality Blood 12/11/2021 4:28 AM 2 4:37 EDT AM EDT Resulting Agency Comment Spec In Lab Iker Cuevas MD CHEMISTRY ORDERABLES Performing Organization Address City/[facility]/ZIP Code Phon e Number [address] POCT Glucose (12/11/2021 3:58 AM EDT) athologist Signature POC Glucose 189 65 - 199 [place] mg/dL [facility] LABORATORY Comment: Supplemental ranges: <140 mg/dL before meals <180 mg/dL all other times of the day Specimen Anatomical Collection Method Collection Time Receive d Time (Source) Location / / Volume Laterality Blood 12/11/2021 3:58 AM 2 3:58 EDT AM EDT Iker Cuevas MD POINT OF CARE TEST ORDERABLE S Performing Organization Address City/[facility]/[place] [address] (ABNORMAL) POCT Glucose (12/10/2021 11:45 PM EDT) athologist Signature POC Glucose 205 (H) 65 - 199 [place] mg/dL [facility] LABORATORY Comment: Supplemental ranges: <140 mg/dL before meals <180 mg/dL all other times of the day Specimen Anatomical Collection Method Collection Time Receive d Time (Source) Location / / Volume Laterality Blood 12/10/2021 11:45 12/10/2021 PM EDT 11:45 PM EDT Iker Cuevas MD POINT OF CARE TEST ORDERABLE S Performing Organization Address City/[facility]/[place] [address] (ABNORMAL) POCT Glucose (12/10/2021 7:54 PM EDT) athologist Signature POC Glucose 225 (H) 65 - 199 [facility] mg/dL [facility] LABORATORY Comment: Supplemental ranges: <140 mg/dL before meals <180 mg/dL all other times of the day Specimen Anatomical Collection Method Collection Time Receive d Time (Source) Location / / Volume Laterality Blood 12/10/2021 7:54 PM 2 7:54 EDT PM EDT Iker Cuevas MD POINT OF CARE TEST ORDERABLE S Performing Organization Address City/[facility]/[place] [address] Potassium (12/10/2021 7:46 PM EDT) athologist [facility] Potassium 4.2 3.5 - 5.0 [facility] mmol/L [facility] LABORATORY Comment: Please note: ??Patients [...] Performing Organization Address City/[facility]/ZIP [facility] [place] [address] (ABNORMAL) Basic Metabolic Panel (non-fasting) (12/10/2021 6:12 PM EDT) athologist Signature Glucose Lvl 246 (H) 65 - 199 [facility] mg/dL [facility] [...] Address City/State/ZIP Code Phon e Number [address] POCT Glucose (12/10/2021 4:59 PM EDT) P athologist Signature POC Glucose 158 65 - 199 [facility] mg/dL [facility] LABORATORY Comment: Supplemental ranges: <140 mg/dL before meals <180 mg/dL all other times of the day Specimen Anatomical Collection Method Collection Time Receive d Time (Source) Location / / Volume Laterality Blood 12/10/2021 4:59 PM 2 4:59 EDT PM EDT Iker Cuevas MD POINT OF CARE TEST ORDERABLE S Performing Organization Address City/State/[place] [address] (ABNORMAL) POCT Glucose (12/10/2021 12:43 PM EDT) P athologist Signature POC Glucose 241 (H) 65 - 199 [facility] mg/dL [facility] LABORATORY Comment: Supplemental ranges: <140 mg/dL before meals <180 mg/dL all other times of the day Specimen Anatomical Collection Method Collection Time Receive d Time (Source) Location / / Volume Laterality Blood 12/10/2021 12:43 12/10/2021 PM EDT 12:43 PM EDT Iker Cuevas MD POINT OF CARE TEST ORDERABLE S Performing Organization Address City/State/[place] [address] EKG 12 Lead (12/10/2021 11:17 AM EDT) Component Value Ref Range Test Analysis Performed Pathologis t Method Time At Signature Ventricular rate 62 BPM MUSE SYSTEM Atrial Rate 62 BPM MUSE SYSTEM P-R Interval 142 ms MUSE SYSTEM QRS Duration 100 ms MUSE SYSTEM Q-T Interval 434 ms MUSE SYSTEM QTC Calculated 440 ms MUSE SYSTEM (Bezet) Calculated P [place] 34 degrees MUSE SYSTEM Calculated R [place] -39 degrees MUSE SYSTEM Calculated T [place] 92 degrees MUSE SYSTEM INTERPRETATION Normal sinus rhythm MUSE SYSTEM Left axis deviation Minimal voltage criteria for LVH, may be normal variant ( [place] product ) Cannot rule out Inferior infarct [...] Volume Narrative 12/10/2021 12:04 PM EDT ?[facility] ? Cardiac Cathete rization/Intervention Report ? Patient Name: Don FatimaMadiha ? Procedure Date: 12/10/2021 ? A #: [id number] ? Primary Physician: Nobles, Vitaliy P ? Case #: [id number] ? File Name: [id number] ? Catheterization Order Number: [id number] ? [facility] ? Final Report [place], [place] ? Patient Name: ? Don E. Stewa rt ? ID#: ?[id number] ? : ?1945 ? Procedure Date: ? [...] procedure was Urgent. The indication for ?the candlemaking laborer visit is ACS great er than [...] ?3.75 guiding catheter and a 3.5 Fr [place] [facility] [place] 20 Mhz using Manual ?pullback. ??Imaging was [...] ?3.75 guiding catheter and a 3.5 Fr [place] [facility] 20 Mhz using Manual ?pullback. ??Imaging was [...] may require ?modification of this regimen. C [facility] Interventional Cardiology for ?questions. ?The 1 [...] Note Vitaliy Nobles MD - 01/14/2022 [facility] Cardiac Catheterization/Intervention Re port Patient Name: Don Fatima Procedure Date: 12/10/2021 A #: [id number] Primary Physician: Vitaliy Nobles Case #: [id number] File Name: [id number] Catheterization Order Number: [id number] [facility] Final Report [place], [place] Patient Name: Don Fatima ID#: [...] e was Urgent. The indication for the candlemaking laborer visit is ACS greater than 24 [...] and a 3.5 Fr [place] [facility] 20 Mhz using Manual pullback. Imaging was [...] and a 3.5 Fr [place] [facility] [place] 20 Mhz using Manual pullback. Imaging was [...] modification of this regimen. Consult [facility] Interventional Cardiology for questions. The [...] 262 (H) 65 - 199 [facility] mg/dL [facility] LABORATORY Comment: Supplemental ranges: <140 mg/dL before meals <180 mg/dL all other times of the day Specimen Anatomical Collection Method Collection Time Receive d Time (Source) Location / / Volume Laterality Blood 12/10/2021 10:30 12/10/2021 AM EDT 10:30 AM EDT Iker Cuevas MD POINT OF CARE TEST ORDERABLE S Performing Organization Address City/State/[place] [address] (ABNORMAL) POCT Glucose (12/10/2021 9:48 AM EDT) athologist Signature POC Glucose 279 (H) 65 - 199 [place] mg/dL [facility] LABORATORY Comment: Supplemental ranges: <140 mg/dL before meals <180 mg/dL all other times of the day Specimen Anatomical Collection Method Collection Time Receive d Time (Source) Location / / Volume Laterality Blood 12/10/2021 9:48 AM 2 9:48 EDT AM EDT Iker Cuevas MD POINT OF CARE TEST ORDERABLE S Performing Organization Address City/[facility]/[place] [address] (ABNORMAL) POCT Glucose (12/10/2021 9:07 AM EDT) P athologist Signature POC Glucose 268 (H) 65 - 199 [place] [facility] mg/dL [facility] LABORATORY Comment: Supplemental ranges: <140 mg/dL before meals <180 mg/dL all other times of the day Specimen Anatomical Collection Method Collection Time Receive d Time (Source) Location / / Volume Laterality Blood 12/10/2021 9:07 AM 2 9:07 EDT AM EDT Iker Cuevas MD POINT OF CARE TEST ORDERABLE S Performing Organization Address City/State/[place] [address] (ABNORMAL) Point of Care Blood Gas Historical (12/10/2021 9:04 AM EDT) [facility] Method Time Signature POC pH 7.40 7.35 - [place] 7.45 [facility] LABORATORY POC PCO2 40 35 - 45 [facility] LABORATORY POC PO2 63 (L) 85 - 104 [facility] LABORATORY POC Base Excess 0.0 -3.0 - 3.0 [facility] K mmol/L [facility] LABORATORY POC HCO3 24.8 20.0 - [facility] 26.0 [facility] POC Sodium 143 135 - 145 [facility] mmol/L [facility] LABORATORY POC Potassium 3.7 3.5 - 5.0 [facility] mmol/L [facility] LABORATORY POC Ionized Ca 1.07 (L) 1.15 - [facility] 1.33 [facility] LAB[facility] POC Hematocrit 30.0 (L) 40.0 - [facility] 51.0 % [facility] POC Calc Hgb 10.2 (L) 13.7 - [facility] 17.5 g/dL [facility] LABORATORY Comment: The calculation of hemoglobin f rom hematocrit assumes a normal MCHC. POC Bgas Loc CC LAB [facility] LABORATORY Specimen Anatomical Collection Method Collection Time Receive d Time (Source) Location / / Volume Laterality Blood 12/10/2021 9:04 AM 2 EDT 12:00 PM EDT Ifeanyi Truong MD CHEMISTRY ORDERABLES Performing Organization Address City/State/[place] [address] (ABNORMAL) POCT Glucose (12/10/2021 7:19 AM EDT) P athologist Signature POC Glucose 274 (H) 65 - 199 [facility] mg/dL [facility] LABORATORY Comment: Supplemental ranges: <140 mg/dL before meals <180 mg/dL all other times of the day Specimen Anatomical Collection Method Collection Time Receive d Time (Source) Location / / Volume Laterality Blood 12/10/2021 7:19 AM 2 7:19 EDT AM EDT Iker Cuevas MD POINT OF CARE TEST ORDERABLE S Performing Organization Address City/State/[place] [address] Heparin (unfractionated) Level (12/10/2021 4:25 AM EDT) P athologist Signature Heparin UFH 0.69 IU/mL [facility] LABORATORY Comment: Heparin (anti-Xa) levels [...] City/State/ZIP Code Phon e Number [place] [id number]OS[address] Drive (ABNORMAL) Differential, Automated (12/10/2021 4:25 AM EDT) Patholo gist Method Time Signature Neutrophils % 79.8 % [facility] LABORATORY Neutr Abs (ANC) 7.47 (H) 1.70 - [facility] 6.10 [facility] x10(3)/[facility] LABORATORY Lymphocytes % 10.6 % [facility] LABORATORY Lymphocytes Abs 1.0 0.9 - 3.2 [facility] x10(3)/[facility] LABORATORY Monocytes % 8.4 % [facility] LABORATORY Monocyte Abs 0.8 0.3 - 0.9 [facility] x10(3)/[facility] LABORATORY Eosinophils % 0.6 % [facility] LABORATORY Eosinophils Abs 0.1 0.0 - 0.4 [facility] x10(3)/[facility] LABORATORY Basophils % 0.2 % [facility] LABORATORY Basophils Abs 0.0 0.0 - 0.1 [facility] x10(3)/[facility] LABORATORY Immature Gran % 0.40 % [...] 0.00 - 0.04 x10(3)/[facility] LABORATORY Specimen Anatomical Collection Method Collection Time Receive d Time (Source) Location / / Volume Laterality Blood 12/10/2021 4:25 AM 4:34 EDT AM EDT Resulting Agency Comment Spec In Lab Morgan BROWN HEMATOLOGY ORDERABLES Performing Organization Address City/State/[place] [address] (ABNORMAL) Hemogram (12/10/2021 4:25 AM EDT) Analysis Performed At Patho logist Time Signature WBC 9.4 4.0 - 9.5 [facility] x10(3)/[facility] LABORATORY RBC 3.81 (L) 4.58 - [facility] 5.54 [facility] x10(6)/[facility] LABORATORY Hemoglobin 11.1 (L) 13.7 - [facility] 16.5 g/dL [facility] LABORATORY Hematocrit 34.0 (L) 40.5 - [facility] 48.5 % [facility] LABORATORY MCV 89.2 82.9 - [facility] 93.1 [facility] LABORATORY MCH 29.1 27.5 - [facility] 32.1 pg [facility] LABORATORY MCHC 32.6 32.0 - [facility] 35.7 g/dL [facility] LABORATORY Platelets 183 145 - 357 [facility] x10(3)/[facility] LABORATORY RDWSD 49.9 (H) 36.0 - [facility] RYAN 45.0 [facility] LABORATORY RDWCV 15.2 (H) 11.4 - [facility] 13.8 % [facility] LABORATORY MPV 9.8 7.6 - 12.9 [facility] LABORATORY nRBC % Auto 0.0 % [facility] LABORATORY nRBC Abs Auto 0.000 0.000 - [place] 0.000 [facility] x10(3)/[facility] LABORATORY Specimen Anatomical Collection Method Collection Time Receive d Time (Source) Location / / Volume Laterality Blood 12/10/2021 4:25 AM 2 4:34 EDT AM EDT Resulting Agency Comment Spec In Lab Morgan BROWN HEMATOLOGY ORDERABLES Performing Organization Address City/[facility]/ZIP Code Phon e Number [address] (ABNORMAL) Prothrombin Time (12/10/2021 4:25 AM EDT) P athologist Signature PT 20.0 (H) 9.4 - 12.5 [facility] LABORATORY INR 1.7 [facility] LABORATORY [...] [facility]/[place] [address] (ABNORMAL) BMP w/fasting Glucose (12/10/2021 4:25 AM EDT) P athologist Signature Glucose 210 (H) 65 - 99 [facility] Fasting mg/dL [facility] LABORATORY Comment: ?Fasting* Glucose Interpretive [...] of Diabetes Mellitus, Position Statement from the [employer]. ??Diabete s Care, Volume 33, [...] Organization Address City/State/[place] [address] Magnesium (12/10/2021 4:25 AM EDT) athologist Signature Magnesium 0.95 0.69 - 1.07 [place] mmol/L [facility] LABORATORY Specimen Anatomical Collection Method Collection Time Receive d Time (Source) Location / / Volume Laterality Blood 12/10/2021 4:25 AM 2 4:34 EDT AM EDT Resulting Agency Comment Spec In Lab Iker Cuevas MD CHEMISTRY ORDERABLES Performing Organization Address City/[facility]/[place] [address] POCT Glucose (12/10/2021 1:58 AM EDT) athologist Signature POC Glucose 164 65 - 199 [place] mg/dL [facility] LABORATORY Comment: Supplemental ranges: <140 mg/dL before meals <180 mg/dL all other times of the day Specimen Anatomical Collection Method Collection Time Receive d Time (Source) Location / / Volume Laterality Blood 12/10/2021 1:58 AM 2 1:58 EDT AM EDT Iker Cuevas MD POINT OF CARE TEST ORDERABLE S Performing Organization Address City/[facility]/ZIP Code Phon e Number [address] (ABNORMAL) POCT Glucose (12/09/2021 9:02 PM EDT) athologist Signature POC Glucose 313 (H) 65 - 199 [place] mg/dL [facility] LABORATORY Comment: Supplemental ranges: <140 mg/dL before meals <180 mg/dL all other times of the day Specimen Anatomical Collection Method Collection Time Receive d Time (Source) Location / / Volume Laterality Blood 12/09/2021 9:02 PM 2 9:02 EDT PM EDT Iker Cuevas MD POINT OF CARE TEST ORDERABLE S Performing Organization Address City/[facility]/[place] [address] Heparin (unfractionated) Level (12/09/2021 7:30 PM EDT) athologist Signature Heparin UFH 0.48 IU/mL [facility] LABORATORY Comment: Heparin (anti-Xa) levels [...] Organization Address City/State/[place] [address] (ABNORMAL) Basic Metabolic Panel (non-fasting) (12/09/2021 7:30 PM EDT) athologist Signature Glucose Lvl 372 (H) 65 - 199 [facility] mg/dL [facility] LABORATORY [...] Organization Address City/State/[place] [address] (ABNORMAL) POCT Glucose (12/09/2021 6:34 PM EDT) athologist Signature POC Glucose 408 (H) 65 - 199 [place] mg/dL [facility] LABORATORY Comment: Supplemental ranges: <140 mg/dL before meals <180 mg/dL all other times of the day Specimen Anatomical Collection Method Collection Time Receive d Time (Source) Location / / Volume Laterality Blood 12/09/2021 6:34 PM 2 6:34 EDT PM EDT Iker Cuevas MD POINT OF CARE TEST ORDERABLE S Performing Organization Address City/State/[place] [address] (ABNORMAL) POCT Glucose (12/09/2021 6:32 PM EDT) athologist Signature POC Glucose 356 (H) 65 - 199 [facility] mg/dL [facility] LABORATORY Comment: Supplemental ranges: <140 mg/dL before meals <180 mg/dL all other times of the day Specimen Anatomical Collection Method Collection Time Receive d Time (Source) Location / / Volume Laterality Blood 12/09/2021 6:32 PM 2 6:32 EDT PM EDT Iker Cuevas MD POINT OF CARE TEST ORDERABLE S Performing Organization Address City/[facility]/[place] [address] (ABNORMAL) POCT Glucose (12/09/2021 4:19 PM EDT) athologist Signature POC Glucose 347 (H) 65 - 199 [facility] mg/dL [facility] LABORATORY Comment: Supplemental ranges: <140 mg/dL before meals <180 mg/dL all other times of the day Specimen Anatomical Collection Method Collection Time Receive d Time (Source) Location / / Volume Laterality Blood 12/09/2021 4:19 PM 2 4:19 EDT PM EDT Iker Cuevas MD POINT OF CARE TEST ORDERABLE S Performing Organization Address City/State/[place] [address] Heparin (unfractionated) Level (12/09/2021 1:29 PM EDT) athologist Signature Heparin UFH 0.42 IU/mL [facility] LABORATORY Comment: Heparin (anti-Xa) levels [...] Organization Address City/State/[place] [address] (ABNORMAL) POCT Glucose (12/09/2021 12:02 PM EDT) athologist Signature POC Glucose 235 (H) 65 - 199 [facility] [facility] mg/dL [facility] Comment: Supplemental ranges: <140 mg/dL before meals <180 mg/dL all other times of the day Specimen Anatomical Collection Method Collection Time Receive d Time (Source) Location / / Volume Laterality Blood 12/09/2021 12:02 12/09/2021 PM EDT 12:02 PM EDT Iker Cuevas MD POINT OF CARE TEST ORDERABLE S Performing Organization Address City/State/[place] [address] (ABNORMAL) POCT Glucose (12/09/2021 9:44 AM EDT) athologist Signature POC Glucose 214 (H) 65 - 199 [place] mg/dL [facility] Comment: Supplemental ranges: <140 mg/dL before meals <180 mg/dL all other times of the day Specimen Anatomical Collection Method Collection Time Receive d Time (Source) Location / / Volume Laterality Blood 12/09/2021 9:44 AM 2 9:44 EDT AM EDT Iker Cuevas MD POINT OF CARE TEST ORDERABLE S Performing Organization Address City/[facility]/[place] [address] EKG 12 Lead (12/09/2021 7:57 AM EDT) Component Value Ref Range Test Analysis Performed Pathologis t Method Time At Signature Ventricular rate 101 BPM MUSE SYSTEM Atrial Rate 101 BPM MUSE SYSTEM P-R Interval 150 ms MUSE SYSTEM QRS Duration 112 ms MUSE SYSTEM Q-T Interval 364 ms MUSE SYSTEM QTC Calculated 471 ms MUSE SYSTEM (Bezet) Calculated P [place] 59 degrees MUSE SYSTEM Calculated R [place] -42 degrees MUSE SYSTEM Calculated T [place] 102 degrees MUSE SYSTEM INTERPRETATION Sinus tachycardia Occasional Premature ventricular com plexes MUSE SYSTEM Left axis deviation 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) Abnormal ECG When compared with ECG of 08-DEC-2021 16:40, Premature ventricular complexes are now Present Confirmed by MD Fernandez Danette ([id number]) on 12/10/2021 4:55:06 PM Specimen Anatomical Collection Method Collection Time Receive d Time (Source) Location / / Volume Laterality 12/09/2021 7:57 AM 2 4:55 EDT PM EDT Iker Cuevas MD ECG ORDERABLES Performing Organization Address City/State/ZIP Code Phon e Number MUSE SYSTEM (ABNORMAL) POCT Glucose (12/09/2021 7:28 AM EDT) P athologist Signature POC Glucose 263 (H) 65 - 199 [facility] Comment: Supplemental ranges: <140 mg/dL before meals <180 mg/dL all other times of the day Specimen Anatomical Collection Method Collection Time Receive d Time (Source) Location / / Volume Laterality Blood 12/09/2021 7:28 AM 2 7:28 EDT AM EDT Iker Cuevas MD POINT OF CARE TEST ORDERABLE S Performing Organization Address City/State/ZIP Code Phon e Number [place] [id number]ORY [address] (ABNORMAL) Hemoglobin A1c (12/09/2021 [...] Mellitus, Diabetes Care 2013; 36: Suppl. 1, U77-12 Est Avg Gluc See note mg/dL GRACE [...] into estimated average glucose values. ??Diabetes Care 2008:31(8):5068-3519. Specimen Anatomical Collection Method Collection Time Receive d Time (Source) Location / / Volume Laterality Blood Venous Draw / 12/09/2021 6:18 AM 12/10/19 22 Unknown EDT 12:24 PM EDT Resulting Agency Comment Spec In Lab Migdalia BROWN CHEMISTRY ORDERABLES Performing Organization Address [facility] [place] [address] (ABNORMAL) Prothrombin Time (12/09/2021 6:18 AM EDT) athologist Signature PT 26.6 (H) 9.4 - 12.5 [facility] LABORATORY INR 2.3 [facility] LABORATORY [...] Migdalia BROWN HEMATOLOGY ORDERABLES Performing Organization Address [facility] [place] [address] Heparin (unfractionated) Level (12/09/2021 6:18 AM EDT) P athologist Signature Heparin UFH 0.24 IU/mL [facility] LABORATORY Comment: Heparin (anti-Xa) levels [...] Organization Address City/State/[place] [address] (ABNORMAL) Differential, Automated (12/09/2021 6:18 AM EDT) [facility] Method Time Signature Neutrophils % 91.5 % [facility] Neutr Abs (ANC) 15.78 (H) 1.70 - [facility] 6.10 [facility] x10(3)/[facility] LABORATORY Lymphocytes % 2.9 % [facility] Lymphocytes Abs 0.5 (L) 0.9 - 3.2 [facility] x10(3)/[facility] LABORATORY Monocytes % 4.9 % [facility] Monocyte Abs 0.8 0.3 - 0.9 [facility] x10(3)/[facility] LABORATORY Eosinophils % 0.0 % [facility] Eosinophils Abs 0.0 0.0 - 0.4 [facility] x10(3)/[facility] LABORATORY Basophils % 0.2 % [facility] Basophils Abs 0.0 0.0 - 0.1 [facility] x10(3)/[facility] LABORATORY Immature Gran % 0.50 % [...] Gran Abs 0.09 (H) 0.00 - 0.04 x10(3)/[facility] LABORATORY Specimen Anatomical Collection Method Collection Time Receive d Time (Source) Location / / Volume Laterality Blood 12/09/2021 6:18 AM 6:33 EDT AM EDT Resulting Agency Comment Spec In Lab Morgan BROWN HEMATOLOGY ORDERABLES Performing Organization Address City/State/[place] [address] (ABNORMAL) Hemogram (12/09/2021 6:18 AM EDT) Analysis Performed At Patho logist Time Signature WBC 17.2 (H) 4.0 - 9.5 [facility] x10(3)/[facility] LABORATORY RBC 4.32 (L) 4.58 - [facility] 5.54 [facility] x10(6)/[facility] LABORATORY Hemoglobin 12.6 (L) 13.7 - [facility] 16.5 g/dL [facility] Hematocrit 38.9 (L) 40.5 - [facility] 48.5 % [facility] MCV 90.0 82.9 - [facility] 93.1 [facility] LABORATORY MCH 29.2 27.5 - [facility] 32.1 pg [facility] MCHC 32.4 32.0 - [facility] 35.7 g/dL [facility] Platelets 193 145 - 357 [facility] x10(3)/[facility] LABORATORY RDWSD 50.4 (H) 36.0 - [facility] RYAN 45.0 [facility] LABORATORY RDWCV 15.2 (H) 11.4 - [facility] 13.8 % [facility] MPV 9.5 7.6 - 12.9 [facility] LABORATORY nRBC % Auto 0.0 % [facility] nRBC Abs Auto 0.000 0.000 - [facility] 0.000 [facility] x10(3)/[facility] LABORATORY Specimen Anatomical Collection Method Collection Time Receive d Time (Source) Location / / Volume Laterality Blood 12/09/2021 6:18 AM 6:33 EDT AM EDT Resulting Agency Comment Spec In Lab Morgan BROWN HEMATOLOGY ORDERABLES Performing Organization Address City/State/[place] [address] Lipid Panel (Reflex Direct LDL) (12/09/2021 6:18 AM EDT) athologist Signature Chol, Total 105 mg/dL [facility] Comment: Lower Risk: <200 mg/dL Average Risk: 200-239 mg/dL Higher Risk: >og=352 mg/dL Triglycerides 133 mg/dL [facility] LABOR[facility]ORY Comment: Average Risk/Lower Risk: <150 mg/dL Borderline High Risk: 150-199 mg/dL High Risk: 200-499 mg/dL Very High Risk: >ei=443 mg/dL HDL 42 mg/dL [facility] Comment: Males: ?? Higher Risk: <40 mg/dL Females: ?? Higher Risk: <50 mg/dL LDL Cholesterol 36 mg/dL [facility] Comment: Lowest Risk: <100 mg/dL Lower Risk: 100-129 mg/dL Borderline High Risk: 130-159 mg/dL High Risk: 160-189 mg/dL Very High Risk: >iq=564 mg/dL Chol/HDL Ratio 2.5 ratio [facility] Lipid Interpretation See Note [facility] Comment: Lipid management should be guided by a p atient? s ASCVD risk, goals and preferences. ACC/AHA Guidelines recommend high intens ity statin if clinical ASCVD or LDL greater than or equal to 190 mg/dL. http://tinyurl.com/TWE-AHT-Pzlbedomv Adults aged 40-75 with LDL 70-189 mg/dL should have their 10 year ASCVD risk estimated with the ACC/AHA ASCVD risk es timator http://tools.acc.org/REFIQ-Mard-Ogpukhxh r/ Statin should be discussed if risk [...] [facility]/ZIP Code Phon e Number [address] TSH (12/09/2021 6:18 AM EDT) P athologist Signature TSH 1.60 0.27 - 4.20 Re-APPCK mcIU/mL [facility] Comment: Reference Interval (mcIU/mL): Females: ??First Trimester: 0.23-3.88 ??Second Trimester: 0.22-3.90 ??Third Trimester: 0.44-4.66 Specimen Anatomical Collection Method Collection Time Receive d Time (Source) Location / / Volume Laterality Blood 12/09/2021 6:18 AM 2 6:33 EDT AM EDT Resulting Agency Comment Spec In Lab Iker Cuevas MD CHEMISTRY ORDERABLES Performing Organization Address City/[facility]/[place] [address] Hepatic Function Panel (12/09/2021 6:18 AM EDT) P athologist Signature Total Protein 7.3 6.1 - 8.0 [place] g/dL [facility] Albumin 4.2 3.2 - 5.2 [place] g/dL [facility] AST 25 0 - 39 [place] unit/L [facility] ALT 15 0 - 55 [place] unit/L [facility] Alk Phos 75 40 - 130 [place] unit/L [facility] Total 1.1 0.2 - 1.3 [facility] Bilirubin mg/dL [facility] Bili, Direct 0.2 0.0 - 0.3 [facility]/dL [facility] Specimen Anatomical Collection Method Collection Time Receive d Time (Source) Location / / Volume Laterality Blood 12/09/2021 6:18 AM 6:33 EDT AM EDT Resulting Agency Comment Spec In Lab Iker Cuevas MD CHEMISTRY ORDERABLES Performing Organization Address City/State/[place] [address] (ABNORMAL) BMP w/fasting Glucose (12/09/2021 6:18 AM EDT) athologist Signature Glucose 235 (H) 65 - 99 [facility] Fasting mg/dL [facility] Comment: ?Fasting* Glucose Interpretive [...] of Diabetes Mellitus, Position Statement from the [employer]. ??Diabete s Care, Volume 33, [...] [facility]/ZIP Code Phon e Number [address] Magnesium (12/09/2021 6:18 AM EDT) P athologist Signature Magnesium 0.81 0.69 - 1.07 [facility] mmol/L [facility] Specimen Anatomical Collection Method Collection Time Receive d Time (Source) Location / / Volume Laterality Blood 12/09/2021 6:18 AM 2 6:33 EDT AM EDT Resulting Agency Comment Spec In Lab Iker Cuevas MD CHEMISTRY ORDERABLES Performing Organization Address City/[facility]/ZIP Code Phon e Number [address] (ABNORMAL) Troponin (12/09/2021 6:18 AM EDT) P athologist Signature Troponin-T 1.13 (H) 0.00 - [place] 0.00 ng/mL [facility] Comment: The 99th percentile [...] additional sample may be indicated. Reference: Third [place] Definition of Myocardial Infarction. Journal of the [employer] 2012;60:1581-98 Specimen Anatomical Collection Method Collection Time Receive d Time (Source) Location / / Volume Laterality Blood 12/09/2021 6:18 AM 6:33 EDT AM EDT Resulting Agency Comment Spec In Lab Iker Cuevas MD CHEMISTRY ORDERABLES Performing Organization Address City/State/ZIP [place] [address] XR Chest One View [...] have questions please contact the health healthcare applications analyst that requested your imaging first. ? Narrative [...] have questions please contact the health healthcare applications analyst that requested your imaging first. Amber Sanches MD IMG DX ORDERABLES (ABNORMAL) BLOOD GAS 2 ARTERIAL (12/09/2021 5:14 AM EDT) Analysis Performed At Patho logist Time Signature pH Art 7.43 7.35 - [facility] 7.45 [facility] pCO2 Art 36 35 - 45 [facility] mmHg [facility]ORY pO2 Art 67 (L) 85 - 104 [facility] LABORATORY HCO3 Art 23.4 20.0 - [facility] 26.0 [facility] mmol/LDS HOSPITAL LABORATORY BE Art -0.9 -3.0 - 3.0 [facility] mmol/L [facility] Hgb Blood Gas 13.2 (L) 13.7 - [facility] 16.5 g/dL [facility] O2HB Art 91.3 (L) 94.0 - [facility] 97.0 % [facility] COHB Art 0.4 % [...] ORDERABLES Performing Organization Address City/[facility] [[email or web address]] [place] [address] POCT Glucose (12/09/2021 4:46 AM EDT) P athologist Signature POC Glucose 198 65 - 199 [facility] mg[facility]dL [facility] Comment: Supplemental ranges: <140 mg/dL before meals <180 mg/dL all other times of the day Specimen Anatomical Collection Method Collection Time Receive d Time (Source) Location / / Volume Laterality Blood 12/09/2021 4:46 AM 2 4:46 EDT AM EDT Iker Cuevas MD POINT OF CARE TEST ORDERABLE S Performing Organization Address City/[facility]/[place] [address] (ABNORMAL) POCT Glucose (12/09/2021 3:01 AM EDT) P athologist Signature POC Glucose 225 (H) 65 - 199 [facility] mg/dL [facility] Comment: Supplemental ranges: <140 mg/dL before meals <180 mg/dL all other times of the day Specimen Anatomical Collection Method Collection Time Receive d Time (Source) Location / / Volume Laterality Blood 12/09/2021 3:01 AM 2 3:01 EDT AM EDT Iker Cuevas MD POINT OF CARE TEST ORDERABLE S Performing Organization Address City/State/[place] [address] (ABNORMAL) POCT Glucose (12/08/2021 10:55 PM EDT) athologist Signature POC Glucose 327 (H) 65 - 199 [facility] mg/dL [facility] Comment: Supplemental ranges: <140 mg/dL before meals <180 mg/dL all other times of the day Specimen Anatomical Collection Method Collection Time Receive d Time (Source) Location / / Volume Laterality Blood 12/08/2021 10:55 12/08/2021 PM EDT 10:55 PM EDT Iker Cuevas MD POINT OF CARE TEST ORDERABLE S Performing Organization Address City/[facility]/[place] [address] Heparin (unfractionated) Level (12/08/2021 10:03 PM EDT) athologist Signature Heparin UFH 0.18 IU/mL [facility] LABORATORY Comment: Heparin (anti-Xa) levels [...] Organization Address City/State/[place] [address] (ABNORMAL) Troponin (12/08/2021 10:03 PM EDT) athologist Signature Troponin-T 0.92 (H) 0.00 - [place] 0.00 ng/mL [facility] Comment: The 99th percentile [...] additional sample may be indicated. Reference: Third [place] Definition of Myocardial Infarction. Journal of the [employer] 2012;60:1581-98 Specimen Anatomical Collection Method Collection Time Receive d Time (Source) Location / / Volume Laterality Blood 12/08/2021 10:03 12/08/2021 PM EDT 10:31 PM EDT Resulting Agency Comment Spec In Lab Iker Cuevas MD CHEMISTRY ORDERABLES Performing Organization Address City/State/ZIP Code Phon e Number [facility] [place] [address] (ABNORMAL) POCT Glucose (12/08/2021 8:22 PM EDT) athologist Signature POC Glucose 429 (H) 65 - 199 [place] mg/dL [facility] Comment: Supplemental ranges: <140 mg/dL before meals <180 mg/dL all other times of the day Specimen Anatomical Collection Method Collection Time Receive d Time (Source) Location / / Volume Laterality Blood 12/08/2021 8:22 PM 2 8:22 EDT PM EDT Iker Cuevas MD POINT OF CARE TEST ORDERABLE S Performing Organization Address City/[facility]/ZIP Code Phon e Number [address] (ABNORMAL) POCT Glucose (12/08/2021 7:06 PM EDT) athologist Signature POC Glucose 442 (H) 65 - 199 [facility] mg/dL [facility] Comment: Supplemental ranges: <140 mg/dL before meals <180 mg/dL all other times of the day Specimen Anatomical Collection Method Collection Time Receive d Time (Source) Location / / Volume Laterality Blood 12/08/2021 7:06 PM 2 7:06 EDT PM EDT Iker Cuevas MD POINT OF CARE TEST ORDERABLE S Performing Organization Address City/[facility]/[place] [address] Magnesium (12/08/2021 6:02 PM EDT) athologist Signature Magnesium 0.86 0.69 - 1.07 [facility] mmol/L [facility]ORY Specimen Anatomical Collection Method Collection Time Receive d Time (Source) Location / / Volume Laterality Blood 12/08/2021 6:02 PM 2 6:36 EDT PM EDT Resulting Agency Comment Spec In Lab Iker Cuevas MD CHEMISTRY ORDERABLES Performing Organization Address City/[facility]/[place] [address] (ABNORMAL) Basic Metabolic Panel (non-fasting) (12/08/2021 6:02 PM EDT) athologist Signature Glucose Lvl 392 (H) 65 - 199 [facility] mg/dL [facility] LABORATORY [...] Organization Address City/State/[place] [address] (ABNORMAL) Differential, Automated (12/08/2021 6:02 PM EDT) [facility] gist Method Time Signature Neutrophils % 89.5 % [facility] LABORATORY Neutr Abs (ANC) 13.97 (H) 1.70 - [facility] 6.10 [facility] x10(3)/[facility] LABORATORY Lymphocytes % 3.7 % [facility]OR[facility] Lymphocytes Abs 0.6 (L) 0.9 - 3.2 [facility] x10(3)/[facility] LABORATORY Monocytes % 6.1 % [facility] Monocyte Abs 1.0 (H) 0.3 - 0.9 [facility] x10(3)/[facility] LABORATORY Eosinophils % 0.0 % [facility] Eosinophils Abs 0.0 0.0 - 0.4 [facility] x10(3)/[facility] LABORATORY Basophils % 0.2 % [facility] Basophils Abs 0.0 0.0 - 0.1 [facility] x10(3)/[facility] LABORATORY Immature Gran % 0.50 % [...] Organization Address City/State/[place] [address] (ABNORMAL) Hemogram (12/08/2021 6:02 PM EDT) Analysis Performed At Patho logist Time Signature WBC 15.6 (H) 4.0 - 9.5 [facility] x10(3)/[facility] LABORATORY RBC 4.05 (L) 4.58 - [facility] 5.54 [facility] x10(6)/[facility] LABORATORY Hemoglobin 11.8 (L) 13.7 - [place] ZHAORY[place] 16.5 g/dL [facility] LABORATORY Hematocrit 35.8 (L) 40.5 - [place] [facility] 48.5 % [facility] LABORATORY MCV 88.4 82.9 - [place] [facility] 93.1 [facility] LABORATORY MCH 29.1 27.5 - [place] ZHAORYAN 32.1 pg [facility] LABORATORY MCHC 33.0 32.0 - [place] ZHAORY[place] 35.7 g/dL [facility] LABORATORY Platelets 178 145 - 357 [facility] x10(3)/[facility] LABORATORY RDWSD 49.3 (H) 36.0 - [place] ZHAORYAN 45.0 [facility] LABORATORY RDWCV 15.1 (H) 11.4 - [place] 13.8 % [facility] LABORATORY MPV 10.4 7.6 - 12.9 [facility] fL [facility] LABORATORY nRBC % Auto 0.0 % [facility] LABORATORY nRBC Abs Auto 0.000 0.000 - [place] ZHAORYAN 0.000 [facility] x10(3)/[facility] LABORATORY Specimen Anatomical Collection Method Collection Time Receive d Time (Source) Location / / Volume Laterality Blood 12/08/2021 6:02 PM 6:36 EDT PM EDT Resulting Agency Comment Spec In Lab Morgan BROWN HEMATOLOGY ORDERABLES Performing Organization Address City/State/[place] [address] (ABNORMAL) Troponin (12/08/2021 6:02 PM EDT) P athologist Signature Troponin-T 0.89 (H) 0.00 - [place] 0.00 ng/mL [facility] LAB[facility]ORY Comment: The 99th percentile [...] additional sample may be indicated. Reference: Third [place] Definition of Myocardial Infarction. Journal of the [place] [employer] 2012;60:1581-98 Specimen Anatomical Collection Method Collection Time Receive d Time (Source) Location / / Volume Laterality Blood 12/08/2021 6:02 PM 6:36 EDT PM EDT Resulting Agency Comment Spec In Lab Iker Cuevas MD CHEMISTRY ORDERABLES Performing Organization Address City/State/ZIP Code Phon e Number [place] [id number]OSPITAL LAB[address]ORY Drive COVID-19 PCR (12/08/2021 5:00 PM EDT) [facility] Method Time Signature SARS-CoV-2 Not Detected Not Detected BAR[facility]A RNA PCR [facility] [...] using the Simplexa COVID-19 Direct Assay by Nimble as authorized by the FDA issued Emergency [...] Department of Pathology and Laboratory Medicine at [facility], certified under the Clinical [...] fact sheets at the following FDA website: https://www.fda.gov/medical-devices/ovfhjotxoaz-mqubvqy-8327-jqqud-37-frgfldoqz- jij-rqafkyfgkvqvop-kxgvatm-devices/vsuft-rrybvtvoqmi-nqqi SARS-CoV-2 Source BRACER Swab [facility] LABORATORY Specimen (Source) Anatomical Collection Method Collection Time Re ceived Time Location / / Volume Laterality Nasopharyngeal Swab 12/08/2021 5:00 12/08 PM EDT 6:03 PM EDT Comment: Symptoms->Surveillance Resulting Agency Comment Spec In Lab Iker Cuevas MD MICROBIOLOGY - GENERAL ORDER [place] Performing Organization Address City/State/[place] [address] EKG 12 Lead (12/08/2021 4:40 PM EDT) Component Value Ref Range Test Analysis Performed Pathologis t Method Time At Signature Ventricular rate 78 BPM MUSE SYSTEM Atrial Rate 78 BPM MUSE SYSTEM P-R Interval 152 ms MUSE SYSTEM QRS Duration 96 ms MUSE SYSTEM Q-T Interval 396 ms MUSE SYSTEM QTC Calculated 451 ms MUSE SYSTEM (Bezet) Calculated P [place] 44 degrees MUSE SYSTEM Calculated R [place] -31 degrees MUSE SYSTEM Calculated T [place] 124 degrees MUSE SYSTEM INTERPRETATION Normal sinus [...] 65 - 199 [facility] mg/dL [facility] LAB[facility]ATORY Comment: Supplemental ranges: <140 mg/dL before meals <180 mg/dL all other times of the day Specimen Anatomical Collection Method Collection Time Receive d Time (Source) Location / / Volume Laterality Blood 12/08/2021 4:34 PM 2 4:34 EDT PM EDT Iker Cuevas MD POINT OF CARE TEST ORDERABLE S Performing Organization Address City/State/[place] [address] documented in this encounter [...] Given 11/23 10:30 AM EDT 300 mcg (EMPLOYMENT COACH) ONCE PRN, Starting on Wed12/10/21 at 1030, [...] Sean ine 0.9) flush 5 mL 0805 ([facility] Hold - Provider: Admin Adt - Reason: Transfer to a Procedural area)0900 (Not Given - Provider: Emma Garcia RN - Reason: Transfer to a Procedural area)1230 ([facility] [facility] Unhold - Provider: Admin Adt)[id number] [...] 12/12/2021 acetaminophen (Tylenol) tablet 650 mg 0805 ([facility] Hold - Provider: Admin Adt [...] Routine bisacodyL (Dulcolax) suppository 10 mg 0805 ([facility] Hold - Provider: Admin Adt [...] jection vial (CANCELED) 0919 (Given - Provider: hSirin Melgoza RN) ONCE PRN, Starting on Wed12/10/21 [...] (Intra-Procedure), Routine niCARdipine (Cardene) (100 mcg/mL) dilution (EMPLOYMENT COACH) (CANCELED) 1030 (Given - Provider: Vitaliy Nobles [...] episode. & nbsp; For persistent hypoglycemia, con legal specialist longer-acting treatment for the duration of the [...]
Routine documented in this encounter Care Teams Castings Trimmer Relationship Specialty Start Date End Date Lovely Vicente MD PCP - General 04/16/[address] [place] [address] documented as of this encounter
--- OUTSIDE RECORDS SUMMARY | 2022-05-08 02:20 | XMS_ITS | Encounter Summary ---
:1945 Author Organization [facility] [place] [address] Care Team Providers Name Role Phone Lovely Vicente MD Primary Care Provider Encounter Details Date Type Department Care Team Description 12/07/2021 Telephone Cardiology Eddi Briceño Jr., [facility] [place] [address] [facility] [phone] CARDIOLOGY DEPT [place], [place] [address] (Wo rk) Social History Tobacco [...] the OSH ED provider/staff member. Referring Location: [facility] Referring Provider: Marisela Dean, FORM TAMPING MACHINE OPERATOR [address] [place] [address] Don Veda Kushal 76 y.o. w / [...] Dolan MD [facility] [place] [address] Liz Poole PA [facility] [place] [address] 06/10/2022 Office Visit Dermatology Laura Scherer MD [facility] DR [address] [place], [place] [address] (Wo rk) documented as of this encounter Visit Diagnoses Not on filedocumented in this encounter Care Teams Cloth Examiner Machine Relationship Specialty Start Date End Date Lovely Vicente MD PCP - General 04/16/15 [facility] [address] [place] [address] documented as of this encounter
--- OUTSIDE RECORDS SUMMARY | 2022-05-08 02:20 | XMS_ITS | Encounter Summary ---
:1945 Author Organization [facility] [place] [address] Care Team Providers Name Role Phone Lovely Vicente MD Primary Care Provider Encounter Details Date Type Department Care Team Description 04/16/2021 Laboratory Appointment Lab 3L [facility] [place] [phone] Social History Tobacco Use Types Packs/Day Years [...] MD [facility] er Dr [place], [place] [address] (Wo rk) 05/28/2022 Laboratory Appointment Lab 05/28/2022 Office Visit Cardiology Zulma Dolan MD [facility] [place] [place] [address] Liz Poole PA [facility] [place] [address] 06/10/2022 Office Visit Dermatology Laura Scherer MD [facility] ER DR [address] [place], [place] [address] (Wo rk) documented as of this encounter [...] Organization Address City/State/[place] [address] (ABNORMAL) Basic Metabolic Panel (non-fasting) (04/16/2021 9:58 AM EDT) athologist Signature Glucose Lvl 77 65 - 199 [facility] mg/dL [facility] - [...] Organization Address City/State/[place] [address] documented in this encounter Visit Diagnoses Diagnosis Chronic systolic heart failure documented in this encounter Care Teams Warehouse Insulation Worker Relationship Specialty Start Date End Date Lovely Vicente MD PCP - General 04/16/[address] [place] [address] documented as of this encounter
--- OUTSIDE RECORDS SUMMARY | 2022-05-08 02:21 | XMS_ITS | Encounter Summary ---
:1945 Author Organization [facility] [place] [address] Care Team Providers Name Role Phone Lovely Vicente MD Primary Care Provider Encounter Details Date Type Department Care Team Description 04/18/2018 Laboratory Appointment Lab 3L [facility] [place] [phone] Social History Tobacco Use Types Packs/Day Years [...] MD [facility] er [place], [place] [address] (Wo rk) 05/28/2022 Laboratory Appointment Lab 05/28/2022 Office Visit Cardiology Zulma Dolan MD [facility] [place] [address] Liz Poole PA [facility] [place] [address] 06/10/2022 Office Visit Dermatology Laura Scherer MD [facility] ER DR [address] [place], [place] [address] (Wo [...] Signature Total Protein 7.6 6.1 - 8.0 [facility] RYAN gm/dL [facility] Albumin 4.0 3.2 - 5.2 [facility] gm/dL [facility] AST 36 0 - 39 [facility] unit/L [facility] ALT 27 0 - 55 [place] [facility] unit/L [facility] Alk Phos 96 40 - 120 [facility] unit/L [facility] Total 0.7 0.2 - 1.3 [place] [facility] Bilirubin mg/dL [facility] Bili, Direct 0.1 0.0 - 0.3 [facility] mg/dL [facility] Specimen Anatomical Collection Method Collection Time Receive d Time (Source) Location / / Volume Laterality Blood specimen Venous Draw / 04/18/2018 9:19 AM 2017 9:44 (specimen) Unknown EDT AM EDT Resulting Agency Comment Spec In Lab Danette Maxwell APRN CHEMISTRY ORDERABLES Performing Organization Address City/State/[place] [address] TSH (04/18/2018 9:19 AM EDT) athologist Signature TSH 1.77 0.27 - 4.20 [facility] mlU/ML [facility] Specimen Anatomical Collection Method Collection Time Receive d Time (Source) Location / / Volume Laterality Blood specimen Venous Draw / 04/18/2018 9:19 AM 2017 9:44 (specimen) Unknown EDT AM EDT Resulting Agency Comment Spec In Lab Danette Maxwell APRN CHEMISTRY ORDERABLES Performing Organization Address City/State/[place] [address] (ABNORMAL) Basic Metabolic Panel (non-fasting) (04/18/2018 9:19 AM EDT) athologist Signature Glucose Lvl 167 65 - 199 [facility] mg/dL [facility] Comment: [...] mmol/L [facility] Anion Gap 23 (H) 5 - 15 mmol/L [facility] Calcium 9.3 8.5 - 10.5 mg/dL [facility] Estimated GFR 61 >=60 mL/min/1.73 m?? [facility] Comment: The eGFR was calculated using the CKD-EP I equation. As with all creatinine based estimates of kidney function, eGFR values calculated with the CKD-EPI equation are not accurate in patients wi th acute kidney failure, extremes of body mass or the acutely ill. http://Speak With Me/DHMCnkf eGFR 70 >=60 mL/min/1.73 m?? [facility] Comment: The eGFR was calculated using the CKD-EP I equation. As with all creatinine based estimates of kidney function, eGFR values calculated with the CKD-EPI equation are not accurate in patients wi th acute kidney failure, extremes of body mass or the acutely ill. http://Speak With Me/DHnkf Specimen Anatomical Collection Method Collection Time Receive d Time (Source) Location / / Volume Laterality Blood specimen 04/18/2018 9:19 AM 018 9:34 (specimen) EDT AM EDT Resulting Agency Comment Spec In Lab Danette Maxwell APRN CHEMISTRY ORDERABLES Performing Organization Address City/[facility]/[place] [address] (ABNORMAL) pro-Brain Natriuretic Peptide (04/18/2018 9:19 AM EDT) P athologist Signature ProBNP 2,199 (H) <=125 [facility] pg[facility]mL [facility] Specimen Anatomical Collection Method Collection Time Receive d Time (Source) Location / / Volume Laterality Blood specimen 04/18/2018 9:19 AM 018 9:34 (specimen) EDT AM EDT Resulting Agency Comment Spec In Lab Danette Maxwell APRN CHEMISTRY ORDERABLES Performing Organization Address City/[facility]/[place] [address] documented in this encounter Visit Diagnoses Diagnosis Chronic systolic heart failure documented in this encounter Care Teams Preparation Operator Relationship Specialty Start Date End Date Lovely Vicente MD PCP - General 04/16/[address] [place] [address] documented as of this encounter
--- OUTSIDE RECORDS SUMMARY | 2022-05-08 02:21 | XMS_ITS | Encounter Summary ---
:1945 Author Organization [facility] [place] [address] Care Team Providers Name Role Phone Lovely Vicente MD Primary Care Provider Encounter Details Date Type Department Care Team Description 01/16/2019 Laboratory Appointment Lab 3L [facility] [place] [phone] Social History Tobacco Use Types Packs/Day Years [...] Dolan MD [facility] er Dr [place], [place] [address] (Wo rk) 05/28/2022 Laboratory Appointment Lab 05/28/2022 Office Visit Cardiology Zulma Dolan MD [facility] [place] [address] Liz Poole PA [facility] [place] [address] 06/10/2022 Office Visit Dermatology Laura Scherer MD [facility] ER DR [address] [place], [place] [address] (Wo rk) documented as of [...] Organization Address City/State/[place] [address] (ABNORMAL) Basic Metabolic Panel (non-fasting) (01/16/2019 7:49 AM EDT) athologist Signature Glucose Lvl 105 65 - 199 [facility] mg/dL [facility] Comment: Diabetes: [...] of body mass or the acutely ill. http://Bruin Brake Cables/[employer] and Researchnkf eGFR 79 >=60 mL/min/1.73 m?? [facility] Comment: The eGFR was calculated using the CKD-EP I equation. As with all creatinine based estimates of kidney function, eGFR values calculated with the CKD-EPI equation are not accurate in patients wi th acute kidney failure, extremes of body mass or the acutely ill. http://Bru[employer]ables/[employer]ear[employer]kf Specimen Anatomical Collection Method Collection Time Receive d Time (Source) Location / / Volume Laterality Blood specimen 01/16/2019 7:49 AM 019 7:55 (specimen) EDT AM EDT Resulting Agency Comment Spec In Lab Danette Maxwell APRN CHEMISTRY ORDERABLES Performing Organization Address City/State/[place] [address] documented in this encounter Visit Diagnoses Diagnosis Chronic systolic heart failure documented in this encounter Care Teams Toggler Relationship Specialty Start Date End Date Lovely Vicente MD PCP - General 04/16/[address] [place] [address] documented as of this encounter
--- OUTSIDE RECORDS SUMMARY | 2022-05-08 02:21 | XMS_ITS | Encounter Summary ---
:1945 Author Organization [facility] [place] [address] Care Team Providers Name Role Phone Lovely Vicente MD Primary Care Provider Encounter Details Date Type Department Care Team Description 11/29/2017 Office Visit Cardiology at [facility] Annette Maxwell Chronic systolic congestive heart failure; [facility] A, WEB SITE MANAGER ASCVD (arteriosclerotic cardiovascular d isease); 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 [...] left greater saphenous vein (done at [facility]), debridement of right foot with wound vac [...] 80 10/25/2017: right popliteal-pedal bypass at [facility] ? Plan: 1. A review of [...] Zulma Dolan MD [facility] [place], [place] [address] (Wo rk) 05/28/2022 Laboratory Appointment Lab 05/28/2022 Office Visit Cardiology Zulma Dolan MD [facility] [place] [address] Liz Poole PA [facility] [place] [address] 06/10/2022 Office Visit Dermatology Laura Scherer MD [facility] DR [address] [place], [place] [address] (Wo rk) documented as of this encounter Results Arterial Duplex Leg, Unil (11/29/2017 10:32 AM EDT) Component Value Ref Test Analysis Performed At [facility] Range Method Time Signature VB Text Department: Vascular Surgery Lab VASCUBASE Report Patient: [id number] (GREGORY HOANG) CPT: 29552 ICD10: I72.4;I73.9 Referring Physician: ANNETTE MAXWELL ?? [...] Glucose Lvl 217 (H) 65 - 199 [facility] mg/dL [facility] Comment: [...] [facility] Estimated GFR >60 >=60 [facility] Comment: The reported eGFR should be multiplied b y 1.2 for patients. The MDRD is not an appropriate measure o f renal function for patients with body mass extremes or in patients with acute kidney failure. http://NudgeRx.Wiz Maps/DHnkdep http://meevl/DHMCnkf Specimen Anatomical Collection Method Collection Time Receive d Time (Source) Location / / Volume Laterality Blood specimen 11/29/2017 8:22 AM 05/07/2 018 8:29 (specimen) EDT AM EDT Resulting Agency Comment Spec In Lab Annette Maxwell WEB SITE MANAGER CHEMISTRY ORDERABLES Performing Organization Address City/State/[place] [address] (ABNORMAL) pro-Brain Natriuretic Peptide (11/29/2017 8:22 AM EDT) P athologist Signature ProBNP 1,769 (H) <=125 [facility] pg/mL [facility] Specimen Anatomical Collection Method Collection Time Receive d Time (Source) Location / / Volume Laterality Blood specimen 11/29/2017 8:22 AM 018 8:29 (specimen) EDT AM EDT Resulting Agency Comment Spec In Lab Annette Maxwell WEB SITE MANAGER CHEMISTRY ORDERABLES Performing Organization Address City/[facility]/[place] [address] documented in this encounter Visit Diagnoses Diagnosis Chronic systolic congestive heart failur e Chronic systolic heart failure ASCVD (arteriosclerotic cardiovascular d isease) Unspecified cardiovascular disease Cardiomyopathy, ischemic Other specified forms of chronic ischemi c heart disease PAD (peripheral artery disease) Peripheral vascular disease, unspecified documented in this encounter Care Teams Millwright Helper Relationship Specialty Start Date End Date Lovely Vicente MD PCP - General 04/16/[address] [place] [address] documented as of this encounter
--- OUTSIDE RECORDS SUMMARY | 2022-05-08 02:21 | XMS_ITS | Encounter Summary ---
:1945 Author Organization [facility] [place] [address] Care Team Providers Name Role Phone Lovely Vicente MD Primary Care Provider Encounter Details Date Type Department Care Team Description 09/16/2017 [place] [address] Social History Tobacco Use Types Packs/Day [...] Zulma Dolan MD [facility] [place], [place] [address] (Wo rk) 05/28/2022 Laboratory Appointment Lab 05/28/2022 Office Visit Cardiology Zulma Dolan MD [facility] [place] [address] Liz Poole PA [facility] [place] [address] 06/10/2022 Office Visit Dermatology Laura Scherer MD [facility] [address] [place], [place] [address] (Wo rk) documented as of this encounter Procedures Procedure Name Priority Date/Time Associated Diagnosis [facility] SURGICAL PATHOLOGY Routine 09/16/2017 7:28 AM Res ults for this REPORT EST procedure are i n the results section. documented in this encounter Results Surgical Pathology Report (09/16/2017 7:28 AM EST) Component Value Ref Test Analysis Performed At [facility] Method Time Signature Surgical [id number] ? Location: [facility] Pathology POMPEII Report The signing pathologist has (i) examined [...] Henrique Flower Verified: ??09/24/2017 ?Pathologist Performed at: ??-[facility] Dept. of Pathology, [place], [place] CLINICAL INFORMATION Specimen Submitted: A - [...] Organization Address City/State/[place] [address] documented in this encounter Visit Diagnoses Not on filedocumented in this encounter Care Teams Design Engineering Specialist Relationship Specialty Start Date End Date Lovely Vicente MD PCP - General 04/16/[address] [place] [address] documented as of this encounter
--- OUTSIDE RECORDS SUMMARY | 2022-05-08 02:21 | XMS_ITS | Encounter Summary ---
:1945 Author Organization [facility] [place] [address] Care Team Providers Name Role Phone Lovely Vicente MD Primary Care Provider Encounter Details Date Type Department Care Team Description 08/26/2018 Transcribe Orders Laboratory Lovely Vicente, Deferred diagnosis [facility] on axis I [address] [address] [place], [place] [phone] [address] Social History Tobacco Use Types Packs/Day Years [...] Dolan MD [facility] Dr [place], [place] [address] (Wo rk) 05/28/2022 Laboratory Appointment Lab 05/28/2022 Office Visit Cardiology Zulma Dolan MD [facility] [place] [address] Liz Poole PA [facility] [place] [address] 06/10/2022 Office Visit Dermatology Laura Scherer MD [facility] [address] [place], [place] [address] (Wo rk) documented as of this encounter Visit Diagnoses Diagnosis Deferred diagnosis on axis I Other unknown and unspecified cause of m orbidity or mortality documented in this encounter Care Teams Biometric Fingerprinting Technician Relationship Specialty Start Date End Date Lovely Vicente MD PCP - General 04/16/15 [facility] [address] [place] [address] documented as of this encounter
--- OUTSIDE RECORDS SUMMARY | 2022-05-08 02:21 | XMS_ITS | Encounter Summary ---
:1945 Author Organization [facility] [place] [address] Care Team Providers Name Role Phone Lovely Vicente MD Primary Care Provider Reason for Visit Reason Onset Date Comments Other 03/24/2019 cardiac clearance ne eded Encounter Details Date Type Department Care Team Description 03/24/2019 Telephone Cardiology at [facility] Danette Maxwell, Other (cardiac [facility] ENVIRONMENTAL COMMUNICATIONS SPECIALIST clearance needed) [place] [phone] CARDIOLOGY [place], [place] [address] (Wo rk) Social History Tobacco [...] AM EDT Leonela from [facility] [place] called requesting cardiac clearance for this patient who is to have a colonoscopy on 04/04/19. He is on anticoagulation and they will need to bridge him. Their phone # [phone], fax# [phone]. Thank you. documented in this encounter Plan of Treatment Upcoming Encounters Date Type Specialty Care Team Description 05/28/2022 Appointment Cardiology Zulma Dolan MD [facility] [place], [place] [address] (Wo rk) 05/28/2022 Laboratory Appointment Lab 05/28/2022 Office Visit Cardiology Zulma Dolan MD [facility] [place] [address] Liz Poole PA [facility] [place] [address] 06/10/2022 Office Visit Dermatology Laura Scherer MD [facility] [address] [place], [place] [address] (Wo rk) documented as of this encounter Visit Diagnoses Not on filedocumented in this encounter Care Teams Help Desk Administrator Relationship Specialty Start Date End Date Lovely Vicente MD PCP - General 04/16/[address] [place] [address] documented as of this encounter
--- OUTSIDE RECORDS SUMMARY | 2022-05-08 02:21 | XMS_ITS | Encounter Summary ---
:1945 Author Organization [facility] [address] Care Team Providers Name Role Phone Lovely Vicente MD Primary Care Provider Reason for Visit Reason Onset Date Comments Other 11/11/2017 Please call [facility] Encounter Details Date Type Department Care Team Description 11/11/2017 Telephone Cardiology at [facility] Danette Maxwell, Other (Please call [facility] LITIGATION SECRETARY [facility] ) [place] [address] CARDIOLOGY [place], [place] [address] (Wo rk) Social History Tobacco [...] Zulma Dolan MD [facility] [address] [place], [place] [address] (Wo rk) 05/28/2022 Laboratory Appointment Lab 05/28/2022 Office Visit Cardiology Zulma Dolan MD [facility] [place] [address] Liz Poole PA [facility] [place] [place] [address] 06/10/2022 Office Visit Dermatology Laura Scherer MD [facility] [address] [place], [place] [address] (Wo rk) documented as of this encounter Visit Diagnoses Not on filedocumented in this encounter Care Teams Flume Ride Operator Relationship Specialty Start Date End Date Lovely Vicente MD PCP - General 04/16/15 [facility] [address] [place] [address] documented as of this encounter
--- OUTSIDE RECORDS SUMMARY | 2022-05-08 02:21 | XMS_ITS | Encounter Summary ---
:1945 Author Organization [facility] [address] Care Team Providers Name Role Phone Lovely Vicente MD Primary Care Provider Reason for Referral Consultation (Routine) - Specialty Diagnoses / Procedures Referred By Contact Refer red To Contact [facility] Diagnoses Atheroembolism of foot, right Delayed surgical wound healing, subsequent encounter Aurelia Rivera PA [address] [facility] [place] [address] Referral ID Status Reason Start Date Expiration Date Visits V isits Requested Authorized [id number] Consult, 09/08/2017 03/07/2018 1 1 Test & Treat Reason for Visit Reason Comments Wound Check My foot hurts Encounter Details Date Type Department Care Team Description 09/07/2017 Office Visit Vascular Surgery at MiguelAurelia PA Atheroembolism of foot, right; [facility] [address] [facility] Delayed surgical wound healing, subseque nt encounter [facility] [place] [phone] Social History Tobacco Use Types Packs/Day Years [...] [facility] better [facility] [...] COMPLETE performed by Manny Mcknight MD at [facility] OR Social Hx: Social History [...] Zulma Dolan MD [facility] [place], [place] [address] (Wo rk) 05/28/2022 Laboratory Appointment Lab 05/28/2022 Office Visit Cardiology Zulma Dolan MD [facility] [place] [address] Liz Poole PA [facility] [place] [address] 06/10/2022 Office Visit Dermatology Laura Scherer MD [facility] DR TE[address] GR-DERMAT OLOGY [place], [place] [address] (Wo rk) Scheduled Referrals Name Type Priority Associated Diagnoses Order S chedule Referral to Wound Outpatient Referral Routine Atheroembolism o f foot, Ordered: Clinic right 09/08/2017 Delayed surgical wound healing, subsequent encounter documented as of this encounter Visit Diagnoses Diagnosis Atheroembolism of foot, right Delayed surgical wound healing, subseque nt encounter documented in this encounter Care Teams Fish Header Relationship Specialty Start Date End Date Lovely Vicente MD PCP - General 04/16/[address] [facility] [place] [address] documented as of this encounter
--- OUTSIDE RECORDS SUMMARY | 2022-05-08 02:21 | XMS_ITS | Encounter Summary ---
:1945 Author Organization [facility] [place] [address] Care Team Providers Name Role Phone Lovely Vicente MD Primary Care Provider Reason for Referral Diagnostic Test (Routine) - Specialty Diagnoses / Procedures Referred By Contact Refer red To Contact Cardiology Diagnoses Chronic systolic heart failure Danette Maxwell APRN [facility] Non-Inv Card Lab Procedures Echocardiogram Transthoracic(Leb) [facility] [place] [phone] [place] [address] Referral ID Status Reason Start Date Expiration Visits Visits Date Requested Authorized [id number] Specialty 08/15/2018 08/15/2018 1 1 Service Requested Reason for Visit Diagnostic Test (Routine) - Specialty Diagnoses / Procedures Referred By Contact Nawaf owen To Contact Cardiology Diagnoses Chronic systolic heart failure Danette Maxwell APRN [facility] Non-Inv Card Lab Procedures Echocardiogram Transthoracic(Leb) [facility] [place] [address] [place] [address] Referral ID Status Reason Start Date Expiration Visits Visits Date Requested Authorized [id number] Specialty 08/15/2018 08/15/2018 1 1 Service Requested Encounter Details Date Type Department Care Team Description 08/15/2018 Hospital Encounter Non-Invasive Danette Maxwell Chron ic systolic Cardiology Lab Barbara Gomes APRN heart failure [facility] [place] [address] [place] [phone] [address] (Work) [phone] Social History Tobacco Use Types Packs/Day Years [...] Zulma Dolan MD [facility] [place], [place] [address] (Wo rk) 05/28/2022 Laboratory Appointment Lab 05/28/2022 Office Visit Cardiology Zulma Dolan MD [facility] [place] [address] Liz Poole PA [facility] [place] [address] 06/10/2022 Office Visit Dermatology Laura Scherer MD [facility] DR TE[address] GR[address] OLOG[address] [place], [place] [address] (Wo rk) documented as [...] Mccollum ? (Age): 1945(73y) Med Rec#: ? [id number] ?Sex: ?M ? Site Loc: ? [place] ?Ht / Wt: ??172(cm)/81(kg) Pt. Loc: ?Echo Lab ?BSA: ?1.94 Study Date: ?? 08/15/2018 ?Pt. Type: Outpatient Tape: ? Referring: MARY ELLEN Reading: Scott Ortega ([id number]) Material Inspector: Laura Sargent Diagnosis: *Chronic systolic (congestive) heart [...] E-wave Vmax ?1.2 ?m/sec ? MV deceleration [id number] ? msec ? MV A-wave Vmax ?0.7 [...] ? Mid-Inferior ?Hypokinetic ? Mid-Inferoseptal ?Hypokinetic ? [place]-Septal ? Akinetic ? [place]-Anterior ? Hypokinetic ? [place]-Lateral ?Akinetic ? [place]-Inferior ? Hypokinetic ? [place]-Tip ?Akinetic ? This report has been electronically sign ed by: _ Scott Ortega M.D. ? 08/15/2018 08:17:26 Images reviewed and interpretation ver ied [facility] Cardiac Ultrasound Laboratory Procedure Note Scott Ortega MD - 08/15/2018Format ting of this note might be different from the original. Procedure: Transthoracic Echocardiogram Patient: NATALYA MCBRIDE(Age): [birth year]73y) Med Rec#: [id number] Sex: M Site Loc: [place] Ht / Wt: 172(cm)/81(kg) Pt. Loc: Echo Lab BSA: 1.94 Study Date: 08/15/2018 Pt. Type: Outpati ent Tape: Referring: MARY ELLEN Reading: Scott Ortega ([id number]) Material Inspector: Laura Sargent Diagnosis: *Chronic systolic (congestive) heart [...] MV E-wave Vmax 1.2 m/sec MV deceleration rqbo441.4 msec MV A-wave Vmax 0.7 m/sec MV [...] Akinetic Mid-Posterolateral Akinetic Mid-Inferior Hypokinetic Mid-Inferoseptal Hypokinetic [place]-Septal Akinetic [place]-Anterior Hypokinetic [place]-Lateral Akinetic [place]-Inferior Hypokinetic [place]-Tip Akinetic This report has been electronically sign ed by: _ Scott Ortega M.D. 08/15/2018 08:17: 26 Images reviewed and interpretation verif ied [facility] Cardiac Ultrasound Laboratory Danette A Hans STUDENT SUPPORT ADVISOR ECHO ORDERABLES documented in this encounter Visit [...] Routine documented in this encounter Care Teams Elementary Substitute Teacher Relationship Specialty Start Date End Date Lovely Vicente MD PCP - General 04/16/[address] [place] [address] documented as of this encounter
--- OUTSIDE RECORDS SUMMARY | 2022-05-08 02:21 | XMS_ITS | Encounter Summary ---
:1945 [place] [address] Care Team Providers Name Role Phone Lovely Vicente MD Primary Care Provider Encounter Details Date Type Department Care Team Description 08/15/2018 Laboratory Appointment Lab 3L [place] [address] Social History Tobacco Use Types Packs/Day [...] MD [facility] [place], [place] [address] (Wo rk) 05/28/2022 Laboratory Appointment Lab 05/28/2022 Office Visit Cardiology Zulma Dolan MD [facility] [place] [address] Liz Poole PA [facility] [place] [address] 06/10/2022 Office Visit Dermatology Laura Scherer MD [facility] ER DR TEJA GR-DERMAT [place], [place] [address] [...] - 12.5 [facility] LABORATORY INR 2.1 [facility] [...] Organization Address City/State/[place] [address] documented in this encounter Visit Diagnoses Not on filedocumented in this encounter Care Teams Golf Professional Relationship Specialty Start Date End Date Lovely Vicente MD PCP - General 04/16/[address] [place] [address] documented as of this encounter
--- OUTSIDE RECORDS SUMMARY | 2022-05-08 02:21 | XMS_ITS | Encounter Summary ---
:1945 Author Organization [facility] [place] [address] Care Team Providers Name Role Phone Lovely Vicente MD Primary Care Provider Encounter Details Date Type Department Care Team Description 10/07/2017 Laboratory Appointment Lab 3L [facility] [place] [phone] Social History Tobacco Use Types Packs/Day Years [...] MD [facility] er [place], [place] [address] (Wo rk) 05/28/2022 Laboratory Appointment Lab 05/28/2022 Office Visit Cardiology Zulma Dolan MD [facility] [place] [address] Liz Poole PA [facility] [place] [address] 06/10/2022 Office Visit Dermatology Laura Scherer MD [facility] ER DR TEJA GR-DERMAT ENIDReal [facility] [place] Amy (Wo rk) documented as of [...] Lvl 99 65 - 199 [facility] mg/dL [facility] [...] or in patients with acute kidney failure. http://AdorStyle.ePrivateHire/DHnkdep http://AdorStyle.ePrivateHire/DHMCnkf Specimen Anatomical Collection Method Collection Time Receive d Time (Source) Location / / Volume Laterality Blood specimen 10/07/2017 8:48 AM 018 8:50 (specimen) EDT AM EDT Resulting Agency Comment Spec In Lab Danette Maxwell SLATE SPLITTER CHEMISTRY ORDERABLES Performing Organization Address City/[facility]/ZIP Code Phon e Number [address] (ABNORMAL) pro-Brain Natriuretic Peptide (10/07/2017 8:48 AM EDT) athologist Signature ProBNP 1,170 (H) <=125 [facility] pg/mL [facility] LABORATORY Specimen Anatomical Collection Method Collection Time Receive d Time (Source) Location / / Volume Laterality Blood specimen 10/07/2017 8:48 AM 018 8:50 (specimen) EDT AM EDT Resulting Agency Comment Spec In Lab Danette A Hans QUINONES CHEMISTRY ORDERABLES Performing Organization Address City/State/[place] [address] documented in this encounter Visit Diagnoses Diagnosis Chronic systolic heart failure documented in this encounter Care Teams Fund Controller Relationship Specialty Start Date End Date Lovely Vicente MD PCP - General 04/16/[address] [place] [address] documented as of this encounter
--- OUTSIDE RECORDS SUMMARY | 2022-05-08 02:21 | XMS_ITS | Encounter Summary ---
:1945 Author Organization [facility] Address [facility] [place] [address] Care Team Providers Name Role Phone Lovely Vicente MD Primary Care Provider Reason for Referral Diagnostic Test (Routine) - Closed Specialty Diagnoses / Procedures Referred By Contact Refer red To Contact Cardiology Diagnoses Chronic systolic heart failure Danette Maxwell APRN [facility] Non-Inv Card Lab Procedures Echocardiogram Transthoracic(Leb) [facility] [address] [place] [address] [place] [address] Referral ID Status Reason Start Date Expiration Date Visits V isits Requested Authorized [id number] Closed Specialty 07/17/2019 09/14/2019 1 1 Service Requested Encounter Details Date Type Department Care Team Description 01/16/2019 Office Visit Cardiology at [facility] Danette Maxwell, Chronic systolic heart failu re; [facility] STACIE Cardiomyopathy, ischemic; Drive [facility] Hx of thyroid cancer; [place], [place] DR [place]MORE (arteriosclerotic heart disease); [phone] CARDIOLOGY MARIA VICTORIA (obstructive sleep apnea) on CPAP [phone] [place], [place] [address] (Wo rk) Social History Tobacco Use Types [...] report for additional findings. ?? Assessment: Mr. Faitma appears well compensated today and without symptoms [...] K+ 4.6 today 6. Post-op atrial fibrillation [id number] (CHF, HTN, DM, vascular disease, thromboembolism) Amiodarone discontinued Continue coumadin INR managed by PCP. 2.1 today 7. PAD 08/06/2017: Right 1st, 2nd, 3rd toe amputation 08/11/2017: Left??femoral arterial access, RLE??angiogram, Balloon angioplasty of R PT with Eleazar 2.5 x 80 10/25/2017: right popliteal-pedal bypass at [facility] 8. Hypothyrodism S/p thyroidectomy for goiter Continue [...] Dolan MD [facility] [place], [place] [address] (Wo rk) 05/28/2022 Laboratory Appointment Lab 05/28/2022 Office Visit Cardiology Zulma Dolan MD [facility] [place] [address] Liz Poole PA [facility] [place] [address] 06/10/2022 Office Visit Dermatology Laura Scherer MD [facility] DR [address]MAT OLOG[address] [place], [place] [address] (Wo rk) documented as of this encounter Results ECHOCARDIOGRAM COMPLETE W CONTRAST (07/28/2019 8:19 AM EST) athologist Signature EF 40 [facility] Anatomical Region Laterality Modality Other Specimen (Source) Anatomical Location Collection Method / Collectio n Time Received Time / Laterality Volume 07/28/2019 Narrative 07/28/2019 8:38 AM EST Procedure: ?Transthoracic Echocardiogram Patient: ?NATALYA Mccollum ? (Age): 1945(74y) Med Rec#: ? [id number] ?Sex: ?M ? Site Loc: ? [facility] ?Ht / Wt: ??172(cm)/81(kg) Pt. Loc: ?Echo Lab ?BSA: ?1.94 Study Date: ?? 07/28/2019 ?Pt. Type: Outpatient Tape: ? Referring: MARY ELLEN Reading: Ifeanyi Truong ([id number]) Telecom Analyst: Fadumo Flanagan RDCS, REGINA Diagnosis: *Chronic [...] E-wave Vmax ?1 ?m/sec ? MV deceleration wlrf086.5 ? msec ? MV A-wave Vmax ?1 [...] ? Mid-Inferior ?Hypokinetic ? Mid-Inferoseptal ?Normal ? [place]-Septal ? Normal ? [place]-Anterior ? Hypokinetic ? [place]-Lateral ?Normal ? [place]-Inferior ? Akinetic ? [place]-Tip ?Hypokinetic ? This report has been electronically sign ed by: _ Ifeanyi Truong M.D. ? 07/28/2019 0 8:38:01 Images reviewed and interpretation [facility] Procedure Note Ifeanyi Truong MD - 07/28/2019Formatt ing of this note might be different from the original. Procedure: Transthoracic Echocardiogram Patient: NATALYA MCBRIDE(Age): [birth year]74y) Med Rec#: [id number] Sex: M Site Loc: [facility] Ht / Wt: 172(cm)/81(kg) Pt. Loc: Echo Lab BSA: 1.94 Study Date: 07/28/2019 Pt. Type: Outpati ent Tape: Referring: MARY ELLEN Reading: Ifeanyi Truong ([id number]) Telecom Analyst: Fadumo Flanagan [facility], [place]GIN[place] Diagnosis: *Chronic systolic (congestive) heart [...] MV E-wave Vmax 1 m/sec MV deceleration faey627.5 msec MV A-wave Vmax 1 m/sec MV [...] Normal Mid-Posterolateral Normal Mid-Inferior Hypokinetic Mid-Inferoseptal Normal [place]-Septal Normal [place]-Anterior Hypokinetic [place]-Lateral Normal [place]-Inferior Akinetic [place]-Tip Hypokinetic This report has been electronically sign ed by: _ Ifeanyi Truong M.D. 07/28/2019 08:38:0 1 Images reviewed and interpretation verif ied [facility] Cardiac Ultrasound Laboratory Danette Maxwell APRN ECHO ORDERABLES (ABNORMAL) Basic Metabolic Panel (non-fasting) (01/16/2019 7:49 AM EDT) P athologist Signature Glucose Lvl 105 65 - 199 [facility] mg/dL [facility] LABORATORY Comment: [...] of body mass or the acutely ill. http://Venddo.com/Netmoda Internet Hizmetleri A.S.nkf eGFR 79 >=60 mL/min/1.73 m?? [facility] LABORATORY Comment: The eGFR was calculated using the CKD-EP I equation. As with all creatinine based estimates of kidney function, eGFR values calculated with the CKD-EPI equation are not accurate in patients wi th acute kidney failure, extremes of body mass or the acutely ill. http://Venddo.com/[facility] CHEYENNEnkf Specimen Anatomical Collection Method Collection Time Receive d Time (Source) Location / / Volume Laterality Blood specimen 01/16/2019 7:49 AM 019 7:55 (specimen) EDT AM EDT Resulting Agency Comment Spec In Lab Danette Maxwell APRN CHEMISTRY ORDERABLES Performing Organization Address City/State/[place] [address] (ABNORMAL) pro-Brain Natriuretic Peptide (01/16/2019 7:49 AM EDT) P athologist Signature ProBNP 780 (H) <=125 pg/mL [facility] LABORATORY Specimen Anatomical Collection Method Collection Time Receive d Time (Source) Location / / Volume Laterality Blood specimen 01/16/2019 7:49 AM 019 7:55 (specimen) EDT AM EDT Resulting Agency Comment Spec In Lab Danette Maxwell ROTARY DRILLER CHEMISTRY ORDERABLES Performing Organization Address City/State/[place] [address] documented in this encounter Visit Diagnoses Diagnosis Chronic systolic heart failure Cardiomyopathy, ischemic Other specified forms of chronic ischemi c heart disease Hx of thyroid cancer Personal history of malignant neoplasm o f thyroid ASHD (arteriosclerotic heart disease) Coronary atherosclerosis of unspecified type of vessel, [place] or graft MARIA VICTORIA (obstructive sleep apnea) on CPAP Obstructive sleep apnea (adult) (pediatr ic) Chronic systolic heart failure documented in this encounter Care Teams Brick Chimney Supervisor Relationship Specialty Start Date End Date Lovely Vicente MD PCP - General 04/16/[address] [place] [address] documented as of this encounter
--- OUTSIDE RECORDS SUMMARY | 2022-05-08 02:21 | XMS_ITS | Encounter Summary ---
:1945 Author Organization [facility] [place] [address] Care Team Providers Name Role Phone Lovely Vicente MD Primary Care Provider Encounter Details Date Type Department Care Team Description 11/29/2017 Laboratory Lab 3L Barbara Chronic systoli c congestive heart failure; Appointment [facility] ASCVD (ar teriosclerotic cardiovascular disease); Hospital Cardiomyopathy, [place] [address] Social History Tobacco Use Types [...] MD [facility] er [place], [place] [address] (Wo rk) 05/28/2022 Laboratory Appointment Lab 05/28/2022 Office Visit Cardiology Zulma Dolan MD [facility] [place] [address] Liz Poole PA [facility] [place] [address] 06/10/2022 Office Visit Dermatology Laura Scherer MD [facility] ER DR [address]-DERMAT [place], [place] 0[address] (Wo rk) documented as of [...] 12.5 [facility] LABORATORY INR 2.1 [facility] LABORATORY [...] Organization Address City/State/[place] [address] (ABNORMAL) Basic Metabolic Panel (non-fasting) (11/29/2017 8:22 AM EDT) P athologist Signature Glucose Lvl 217 (H) 65 - 199 [facility] mg/dL [facility] LABORATORY Comment: [...] [facility] Estimated GFR >60 >=60 [facility] LABORATORY Comment: The reported eGFR should be multiplied b y 1.2 for patients. The MDRD is not an appropriate measure o f renal function for patients with body mass extremes or in patients with acute kidney failure. http://MetaFarms.Cloud Nine Productions/DHnkdep http://Movity/DHMCnkf Specimen Anatomical Collection Method Collection Time Receive d Time (Source) Location / / Volume Laterality Blood specimen 11/29/2017 8:22 AM 018 8:29 (specimen) EDT AM EDT Resulting Agency Comment Spec In Lab Danette Maxwell APRN CHEMISTRY ORDERABLES Performing Organization Address City/State/[place] [address] (ABNORMAL) pro-Brain Natriuretic Peptide (11/29/2017 8:22 AM EDT) P athologist Signature ProBNP 1,769 (H) <=125 [facility] pg/mL [facility] LABORATORY Specimen Anatomical Collection Method Collection Time Receive d Time (Source) Location / / Volume Laterality Blood specimen 11/29/2017 8:22 AM 018 8:29 (specimen) EDT AM EDT Resulting Agency Comment Spec In Lab Danette Maxwell APRN CHEMISTRY ORDERABLES Performing Organization Address City/State/ZIP Code Phon e Number [address] Lavender Tube HOLD (11/29/2017 8:14 AM EDT) Patholo gist Method Time Signature Lavender Hold Sample in [facility] lab. [facility] LABORATORY Specimen Anatomical Collection Method Collection Time Receive d Time (Source) Location / / Volume Laterality Blood specimen No Charge / 11/29/2017 8:14 AM 018 8:29 (specimen) Unknown EDT AM EDT Lovely Vicente MD HEMATOLOGY ORDERABLES Performing Organization Address City/State/[place] [address] documented in this encounter Visit Diagnoses Diagnosis Chronic systolic congestive heart failur e Chronic systolic heart failure ASCVD (arteriosclerotic cardiovascular d isease) Unspecified cardiovascular disease Cardiomyopathy, ischemic Other specified forms of chronic ischemi c heart disease documented in this encounter Care Teams Gum Machine Operator Relationship Specialty Start Date End Date Lovely Vicente MD PCP - General 04/16/[address] [place] [address] documented as of this encounter
--- OUTSIDE RECORDS SUMMARY | 2022-05-08 02:21 | XMS_ITS | Encounter Summary ---
:1945 Author Organization [place] [address] Care Team Providers Name Role Phone Lovely Vicente MD Primary Care Provider Encounter Details Date Type Department Care Team Description 11/29/2017 Hospital Encounter Vascular Lab at [facility] PAD (peripheral [facility] [place], RVT artery [facility] [place] [phone] Social History Tobacco Use Types Packs/Day Years [...] Dolan MD [facility] Dr [place], [place] [address] (Wo rk) 05/28/2022 Laboratory Appointment Lab 05/28/2022 Office Visit Cardiology Zulma Dolan MD [facility] [place] [address] Liz Poole PA [facility] [place] [address] 06/10/2022 Office Visit Dermatology Laura Scherer MD [facility] DR [address]-DERMAT OLOGY [place], [place] 0[address] (Wo rk) documented as [...] Department: Vascular Surgery Lab VASCUBASE Report Patient: [id number] (DON HOANG) CPT: 22829 ICD10: I72.4;I73.9 Referring Physician: DANETTE MAXWELL ?? [...] unspecified documented in this encounter Care Teams Valve Grinder Relationship Specialty Start Date End Date Lovely Vicente MD PCP - General 04/16/[address] [place], [place] [address]Y [facility] [place] [address] documented as of this encounter
--- OUTSIDE RECORDS SUMMARY | 2022-05-08 02:21 | XMS_ITS | Encounter Summary ---
:1945 [place] [address] Care Team Providers Name Role Phone Lovely Vicente MD Primary Care Provider Encounter Details Date Type Department Care Team Description 07/12/2019 Office Visit Dermatology at [facility] Garcia, Rigoberto Yarbrough (actinic keratosis); MD SHAY Quick III (seborrheic keratosis); [address] [facility] Multiple benign nevi; [place] [address] History of melanoma [phone] [facility] [place], [place] [address] Social History Tobacco Use Types [...] encounter. Rigoberto Garcia MD Section of Dermatology [facility] documented in this encounter Plan of Treatment Upcoming Encounters Date Type Specialty Care Team Description 05/28/2022 Appointment Cardiology Zulma Dolan MD [facility] [address] [place], [place] [address] (Wo rk) 05/28/2022 Laboratory Appointment Lab 05/28/2022 Office Visit Cardiology Zulma Dolan MD [facility] [place] [address] Liz Poole PA [facility] [place] [address] 06/10/2022 Office Visit Dermatology Laura Scherer MD [facility] [address] [place], [place] [address] (Wo rk) documented as of this encounter Visit Diagnoses Diagnosis AK (actinic keratosis) Actinic keratosis SK (seborrheic keratosis) Other seborrheic keratosis Multiple benign nevi Benign neoplasm of skin, site unspecifie d History of melanoma Personal history of malignant melanoma o f skin documented in this encounter Care Teams Barn Manager Relationship Specialty Start Date End Date Lovely Vicente MD PCP - General 04/16/15 [facility] [address] [place] [address] documented as of this encounter
--- OUTSIDE RECORDS SUMMARY | 2022-05-08 02:21 | XMS_ITS | Encounter Summary ---
:1945 [place] [address] Care Team Providers Name Role Phone Lovely Vicente MD Primary Care Provider Encounter Details Date Type Department Care Team Description 11/29/2017 Hospital Encounter Radiology Library at Estefany Maxwell Pain [facility] DIRECTOR OF OUTREACH [facility] [place] [address] CARDIOLOGY [phone] [place], [place] [address] (Wo rk) Social History Tobacco [...] Zulma Dolan MD [facility] [place], [place] [address] (Wo rk) 05/28/2022 Laboratory Appointment Lab 05/28/2022 Office Visit Cardiology Zulma Dolan MD [facility] [place] [address] Liz Poole PA [facility] [place] [address] 06/10/2022 Office Visit Dermatology Laura Scherer MD [facility] [address] [place], [place] [address] (Wo rk) documented as of [...] Organization Address City/State/ZIP Code Phon e Number [place], [place] documented in this encounter Visit Diagnoses Diagnosis Pain Generalized pain documented in this encounter Care Teams Interventional Radiologist Relationship Specialty Start Date End Date Lovely Vicente MD PCP - General 04/16/[address] [place] [address] documented as of this encounter
--- OUTSIDE RECORDS SUMMARY | 2022-05-08 02:21 | XMS_ITS | Encounter Summary ---
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 Espino On IV antibiotics at [facility] Today: Mr. Fatima is accompanied by [...] see Dr. Bains well at [facility] and follow his wound on his right lower extremity. And she will continue to direct antibiotic treatment. Ihave asked that the echocardiogram results be faxed to Dr. Zurita at [facility]. 1. ASCVD Continue ASA, BB and [...] and bone removal by Dr. Aguero at [facility]. Currently receiving IV antibiotics at [facility] ? Plan: 1. A review of [...] Cardiology Zulma Dolan MD [facility] [address] [place], [place] [address] (Wo rk) 05/28/2022 Laboratory Appointment Lab 05/28/2022 Office Visit Cardiology Zulma Dolan MD [facility] [address] Liz Poole PA [facility] [place] [address] 06/10/2022 Office Visit Dermatology Laura Scherer MD [facility] [address] [place], [place] [address] (Wo rk) documented as of this encounter Results (ABNORMAL) Basic Metabolic Panel (non-fasting) (10/07/2017 8:48 AM EDT) athologist Signature Glucose Lvl 99 65 - 199 [facility] mg/dL [facility] [...] Calcium 8.4 (L) 8.5 - 10.5 mg/dL [facility] Estimated GFR >60 >=60 [facility] Comment: The reported eGFR should be multiplied b y 1.2 for patients. The MDRD is not an appropriate measure o f renal function for patients with body mass extremes or in patients with acute kidney failure. http://[employer].CrowdStreet/DHnkdep http://Cartesian/DHMCnkf Specimen Anatomical Collection Method Collection Time Receive d Time (Source) Location / / Volume Laterality Blood specimen 10/07/2017 8:48 AM 018 8:50 (specimen) EDT AM EDT Resulting Agency Comment Spec In Lab Danette Maxwell APRN CHEMISTRY ORDERABLES Performing Organization Address City/State/[place] [address] (ABNORMAL) pro-Brain Natriuretic Peptide (10/07/2017 8:48 AM EDT) P athologist Signature ProBNP 1,170 (H) <=125 [facility] pg/mL [facility] Specimen Anatomical Collection Method Collection Time Receive d Time (Source) Location / / Volume Laterality Blood specimen 10/07/2017 8:48 AM 018 8:50 (specimen) EDT AM EDT Resulting Agency Comment Spec In Lab Danette Maxwell APRN CHEMISTRY ORDERABLES Performing Organization Address City/State/[place] [address] documented in this encounter Visit Diagnoses Diagnosis Chronic systolic heart failure S/P CABG x 3 Postsurgical aortocoronary bypass status On amiodarone therapy Atrial fibrillation, unspecified type ASCVD (arteriosclerotic cardiovascular d isease) Unspecified cardiovascular disease documented in this encounter Care Teams Liquor Commissioner Relationship Specialty Start Date End Date Lovely Vicente MD PCP - General 04/16/[address] [place] [address] documented as of this encounter
--- OUTSIDE RECORDS SUMMARY | 2022-05-08 02:21 | XMS_ITS | Encounter Summary ---
:1945 Author Organization [facility] [place] [address] Care Team Providers Name Role Phone Lovely Vicente MD Primary Care Provider Encounter Details Date Type Department Care Team Description 07/28/2019 Laboratory Appointment Lab 3L [facility] [place] [id number] Social History Tobacco Use Types Packs/Day Years [...] MD [facility] [place], [place] [address] (Wo rk) 05/28/2022 Laboratory Appointment Lab 05/28/2022 Office Visit Cardiology Zulma Dolan MD [facility] [place] [address] Liz Poole PA [facility] [place] [address] 06/10/2022 Office Visit Dermatology Laura Scherer MD [facility] [address] [place] [address] (Wo rk) documented as of this encounter [...] City/State/[place] [address] (ABNORMAL) Basic Metabolic Panel (non-fasting) (07/28/2019 8:36 AM EST) athologist Signature Glucose Lvl 153 65 - 199 [facility] mg/dL [facility] [...] of body mass or the acutely ill. http://Medrobotics/BioSTLnkf eGFR 81 >=60 mL/min/1.73 m?? [facility] Comment: The eGFR was calculated using the CKD-EP I equation. As with all creatinine based estimates of kidney function, eGFR values calculated with the CKD-EPI equation are not accurate in patients wi th acute kidney failure, extremes of body mass or the acutely ill. http://Medrobotics/[facility]nkf Specimen Anatomical Collection Method Collection Time Receive d Time (Source) Location / / Volume Laterality Blood specimen 07/28/2019 8:36 AM 020 8:46 (specimen) EST AM EST Resulting Agency Comment Spec In Lab Danette Maxwell APRN CHEMISTRY ORDERABLES Performing Organization Address City/State/Z[place] [address] documented in this encounter Visit Diagnoses Diagnosis Chronic systolic heart failure documented in this encounter Care Teams Farm Contractor Relationship Specialty Start Date End Date Lovely Vicente MD PCP - General 04/16/[address] [place] [address] documented as of this encounter
--- OUTSIDE RECORDS SUMMARY | 2022-05-08 02:21 | XMS_ITS | Encounter Summary ---
:1945 Author Organization [facility] [place] [address] Care Team Providers Name Role Phone Lovely Vicente MD Primary Care Provider Encounter Details Date Type Department Care Team Description 07/28/2019 Office Visit Cardiology at [facility] Danette Maxwell Chronic systolic heart failu re; [facility] A, STACIE ASHD (arteriosclerotic heart disease); Drive [facility] S/P CABG x 3; [place], [place] MARIA VICTORIA (obstructive sleep apnea) on CPAP; [phone] CARDIOLOGY Mixed hyperlipidemia [phone] [place], [place] [address] Social History Tobacco Use Types [...] in this encounter Progress Notes Danette Maxwell, DEBURRING TECHNICIAN - 07/28/2019 9:40 AM EST Images [...] regurgitation present. 07/07/2019 - 07/21/2019 Zio Patch Fundraising Assistant The patient had a minimum heart [...] K+ 4.5 today 6. Post-op atrial fibrillation [id number] (CHF, HTN, DM, vascular disease, thromboembolism) [...] advised: Refer to EP (Dr. Mcelroy in [place]) 5. Heart Failure Clinic follow up scheduled for: 3 months with proBNP and BMP Danette Maxwell APRN 07/28/2019 documented in this encounter Plan of Treatment Upcoming Encounters Date Type Specialty Care Team Description 05/28/2022 Appointment Cardiology Zulma Dolan MD [facility] [place], [place] [address] (Wo rk) 05/28/2022 Laboratory Appointment Lab 05/28/2022 Office Visit Cardiology Zulma Dolan MD [facility] [place] [address] Liz Poole PA [facility] [place] [address] 06/10/2022 Office Visit Dermatology Laura Scherer MD [facility] [address] [place], [place] [address] (Wo rk) documented as of this encounter Results (ABNORMAL) Basic Metabolic Panel (non-fasting) (07/28/2019 8:36 AM EST) P athologist Signature Glucose Lvl 153 65 - 199 [facility] mg/dL [facility] Comment: Diabetes: [...] of body mass or the acutely ill. http://[employer]/Kaleida Healthk eGFR 81 >=60 mL/min/1.73 m?? [facility] Comment: The eGFR was calculated using the CKD-EP I equation. As with all creatinine based estimates of kidney function, eGFR values calculated with the CKD-EPI equation are not accurate in patients wi th acute kidney failure, extremes of body mass or the acutely ill. http://[employer]/[facility]THnkf Specimen Anatomical Collection Method Collection Time Receive d Time (Source) Location / / Volume Laterality Blood specimen 07/28/2019 8:36 AM 020 8:46 (specimen) EST AM EST Resulting Agency Comment Spec In Lab Danette Maxwell APRN CHEMISTRY ORDERABLES Performing Organization Address City/State/ZIP Code Phon e Number [address] (ABNORMAL) pro-Brain Natriuretic Peptide (07/28/2019 8:36 AM EST) athologist Signature ProBNP 647 (H) <=125 pg/mL [facility] Specimen Anatomical Collection Method Collection Time Receive d Time (Source) Location / / Volume Laterality Blood specimen 07/28/2019 8:36 AM 020 8:46 (specimen) EST AM EST Resulting Agency Comment Spec In Lab Danette Maxwell APRN CHEMISTRY ORDERABLES Performing Organization Address City/[facility]/ZIP [place] [address] documented in this encounter Visit Diagnoses Diagnosis Chronic systolic heart failure ASHD (arteriosclerotic heart disease) Coronary atherosclerosis of unspecified type of vessel, [place] or graft S/P CABG x 3 Postsurgical aortocoronary bypass status MARIA VICTORIA (obstructive sleep apnea) on CPAP Obstructive sleep apnea (adult) (pediatr ic) Mixed hyperlipidemia documented in this encounter Care Teams Vehicle Painter Relationship Specialty Start Date End Date Lovely Vicente MD PCP - General 04/16/[address] [place] [address] documented as of this encounter
--- OUTSIDE RECORDS SUMMARY | 2022-05-08 02:21 | XMS_ITS | Encounter Summary ---
:1945 Author Organization [facility] [place] [address] Care Team Providers Name Role Phone Lovely Vicente MD Primary Care Provider Encounter Details Date Type Department Care Team Description 10/05/2017 Telephone Cardiology at [facility] Tamiko Sin MD [facility] [place] [address] CARDIOLOGY DEPT [phone] [place], [place] [address] (Wo rk) Social History Tobacco [...] MD [facility] er [address] [place] [address] (Wo rk) 05/28/2022 Laboratory Appointment Lab 05/28/2022 Office Visit Cardiology Zulma Dolan MD [facility] [place] [address] Liz Poole PA [facility] [place] [address] 06/10/2022 Office Visit Dermatology Laura Scherer MD [facility] ER [address] [place], [place] [address] (Wo rk) documented as of this encounter Visit Diagnoses Not on filedocumented in this encounter Care Teams Complaint Coordinator Relationship Specialty Start Date End Date Lovely Vicente MD PCP - General 04/16/[address] [place] [address] documented as of this encounter
--- OUTSIDE RECORDS SUMMARY | 2022-05-08 02:21 | XMS_ITS | Encounter Summary ---
:1945 Author Organization [facility] [place] [address] Care Team Providers Name Role Phone Lovely Vicente MD Primary Care Provider Reason for Visit Reason Comments Follow-up Skin Check Encounter Details Date Type Department Care Team Description 01/06/2018 Office Visit Dermatology at Rigoberto Formantipmirna nevi; Abdelrahman HOOPER MD History of melanoma; [address] [facility] Sebor[place] [address] [facility] [place], [place] [address] Social History Tobacco Use Types [...] Zulma Dolan MD [facility] [address] [place], [place] [address] (Wo rk) 05/28/2022 Laboratory Appointment Lab 05/28/2022 Office Visit Cardiology Zulma Dolan MD [facility] [place] [address] Liz Poole PA [facility] [place] [address] 06/10/2022 Office Visit Dermatology Laura Scherer MD [facility] [address] [place], [place] [address] (Wo rk) documented as of this encounter Visit Diagnoses Diagnosis Multiple nevi Benign neoplasm of skin, site unspecifie d History of melanoma Personal history of malignant melanoma o f skin Seborrheic keratosis Other seborrheic keratosis documented in this encounter Care Teams Protective Signal Repairer Helper Relationship Specialty Start Date End Date Lovely Vicente MD PCP - General 04/16/[address] [place] [address] documented as of this encounter
--- OUTSIDE RECORDS SUMMARY | 2022-05-08 02:21 | XMS_ITS | Encounter Summary ---
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 ID and CC: Don Fatima is a 72 y.o. male presenting for routine f/u regarding ASCVD, ischemic cardiomyopathy ?? HPI: Mr. Fatmia is a 72 year old male w/ [...] is always better at therapy Call to [facility] PT Denies lightheadedness or dizziness Denies [...] K+ 4.6 today 6. Post-op atrial fibrillation [id number] (CHF, HTN, DM, vascular disease, thromboembolism) Amiodarone discontinued Continue coumadin INR managed by PCP. 2.1 today 7. PAD 08/06/2017: Right 1st, 2nd, 3rd toe amputation 08/11/2017: Left??femoral arterial access, RLE??angiogram, Balloon angioplasty of R PT with Eleazar 2.5 x 80 10/25/2017: right popliteal-pedal bypass at [facility] 8. Hypothyrodism S/p thyroidectomy for goiter [...] MD [facility] [address] [place] [address] (Wo rk) 05/28/2022 Laboratory Appointment Lab 05/28/2022 Office Visit Cardiology Zulma Dolan MD [facility] [place] [address] Liz Poole PA [facility] [place] [address] 06/10/2022 Office Visit Dermatology Laura Scherer MD [facility] ER [address] [place], [place] [address] (Wo rk) documented as of this encounter Results Lipid Panel (08/15/2018 8:04 AM EST) athologist Signature Chol, Total 75 mg/dL [facility] Comment: Lower Risk: <200 mg/dL Average Risk: 200-239 mg/dL Higher Risk: >hl=335 mg/dL Triglycerides 185 mg/dL [facility] Comment: Average Risk/Lower Risk: <150 mg/dL Borderline High Risk: 150-199 mg/dL High Risk: 200-499 mg/dL Very High Risk: >eu=666 mg/dL HDL 32 mg/dL [facility] Comment: Males: ?? Higher Risk: <40 mg/dL Females: ?? HIgher Risk: <50 mg/dL LDL Cholesterol 6 mg/dL [facility] Comment: Lowest Risk: <100 mg/dL Lower Risk: 100-129 mg/dL Borderline High Risk: 130-159 mg/dL High Risk: 160-189 mg/dL Very High Risk: >fq=945 mg/dL Chol/HDL Ratio 2.3 ratio [facility] Lipid Interpretation See Note [facility] Comment: Lipid management should be guided by a p atient? s ASCVD risk, goals and preferences. ACC/AHA Guidelines recommend high intens ity statin if clinical ASCVD or LDL greater than or equal to 190 mg/dL. http://Metro Telworksurl.com/GGK-FNR-Kyzsfcpsv Adults aged 40-75 with LDL 70-189 mg/dL should have their 10 year ASCVD risk estimated with the ACC/AHA ASCVD risk es timator http://tools.acc.org/OZFFL-Eegd-Xnrbxxut r/ Statin should be discussed if risk [...] Address City/State/Z[place] [address] (ABNORMAL) Basic Metabolic Panel (non-fasting) (08/15/2018 8:04 AM EST) P athologist Signature Glucose Lvl 116 65 - 199 [facility] mg/dL [facility] Comment: Diabetes: [...] of body mass or the acutely ill. http://sourceasy/[facility] TULSAnkf eGFR 79 >=60 mL/min/1.73 m?? [facility] Comment: The eGFR was calculated using the CKD-EP I equation. As with all creatinine based estimates of kidney function, eGFR values calculated with the CKD-EPI equation are not accurate in patients wi th acute kidney failure, extremes of body mass or the acutely ill. http://sourceasy/[facility] TULSAnkf Specimen Anatomical Collection Method Collection Time Receive d Time (Source) Location / / Volume Laterality Blood specimen 08/15/2018 8:04 AM 019 8:20 (specimen) EST AM EST Resulting Agency Comment Spec In Lab Danette Maxwell APRN CHEMISTRY ORDERABLES Performing Organization Address City/State/ZIP Code Phon e Number [address] (ABNORMAL) pro-Brain Natriuretic Peptide (08/15/2018 8:04 AM EST) P athologist Signature ProBNP 1,797 (H) <=125 [facility] pg/mL [facility] Specimen Anatomical Collection Method Collection Time Receive d Time (Source) Location / / Volume Laterality Blood specimen 08/15/2018 8:04 AM 019 8:20 (specimen) EST AM EST Resulting Agency Comment Spec In Lab Danette Maxwell APRN CHEMISTRY ORDERABLES Performing Organization Address City/State/Z[place] [address] documented in this encounter Visit Diagnoses Diagnosis Chronic systolic heart failure Cardiomyopathy, ischemic Other specified forms of chronic ischemi c heart disease ASCVD (arteriosclerotic cardiovascular d isease) Unspecified cardiovascular disease Essential hypertension Unspecified essential hypertension MARIA VICTORIA on CPAP Obstructive sleep apnea (adult) (pediatr ic) documented in this encounter Care Teams Tangled Yarn Spool Straightener Relationship Specialty Start Date End Date Lovely Vicente MD PCP - General 04/16/15 [address] [place] [address] documented as of this encounter
--- OUTSIDE RECORDS SUMMARY | 2022-05-08 02:21 | XMS_ITS | Encounter Summary ---
:1945 Author Organization [facility] [place] [address] Care Team Providers Name Role Phone Lovely Vicente MD Primary Care Provider Encounter Details Date Type Department Care Team Description 09/07/2017 Laboratory Appointment Lab 3L [facility] [place] [address] Social History Tobacco Use Types Packs/Day Years [...] Dolan MD [facility] er [address] [place], [place] [address] (Wo rk) 05/28/2022 Laboratory Appointment Lab 05/28/2022 Office Visit Cardiology Zulma Dolan MD [facility] [place] [address] Liz Poole PA [facility] [place] [address] 06/10/2022 Office Visit Dermatology Laura Scherer MD [facility] ER [address] [place], [place] [address] (Wo rk) documented as of this encounter [...] PM EST) athologist Signature Thyroglobulin 1.4 <=54.9 [facility] ng/mL [facility] Comment: Thyroglobulin levels may [...] Address City/State/[place] [address] TSH (09/07/2017 2:41 PM EST) athologist Signature TSH 3.93 0.27 - 4.20 [facility] Specimen Anatomical Collection Method Collection Time Receive d Time (Source) Location / / Volume Laterality Blood specimen 09/07/2017 2:41 PM 018 2:46 (specimen) EST PM EST Resulting Agency Comment Spec In Lab Luz Prescott MD CHEMISTRY ORDERABLES Performing Organization Address City/State/[place] [address] documented in this encounter Visit Diagnoses Diagnosis Hx of papillary thyroid carcinoma Personal history of malignant neoplasm o f thyroid documented in this encounter Care Teams Professional Nursing Assistant Relationship Specialty Start Date End Date Lovely Vicente MD PCP - General 04/16/[address] [place] [address] documented as of this encounter
--- OUTSIDE RECORDS SUMMARY | 2022-05-08 02:21 | XMS_ITS | Encounter Summary ---
:1945 Author Organization [facility] [place] [address] Care Team Providers Name Role Phone Lovely Vicente MD Primary Care Provider Encounter Details Date Type Department Care Team Description 09/07/2017 Office Visit Endocrinology at [facility] Maria Ines Stallings of [facility] MD [place] [address] CENTER [phone] ENDOCRINOLOGY DEPT [place], [place] [address] Social History Tobacco Use Types [...] MD [facility] er Dr [place], [place] [address] (Wo rk) 05/28/2022 Laboratory Appointment Lab 05/28/2022 Office Visit Cardiology Zulma Dolan MD [facility] [place] [address] Liz Poole PA [facility] [place] [address] 06/10/2022 Office Visit Dermatology Laura Scherer MD [facility] ER DR [address] [place], [place] [address] (Wo rk) documented as of this encounter Visit Diagnoses Diagnosis Hx of papillary thyroid carcinoma Personal history of malignant neoplasm o f thyroid documented in this encounter Care Teams Micro Lab Analyst Relationship Specialty Start Date End Date Lovely Vicente MD PCP - General 04/16/15 [facility] [address] [place] [address] documented as of this encounter
--- OUTSIDE RECORDS SUMMARY | 2022-05-08 02:21 | XMS_ITS | Encounter Summary ---
:1945 Author Organization [facility] [place] [address] Care Team Providers Name Role Phone Lovely Vicente MD Primary Care Provider Encounter Details Date Type Department Care Team Description 09/06/2017 Orders Only Vascular Surgery at [facility] Ninfa Clark, [facility] [place] [address] Social History Tobacco Use Types Packs/Day [...] Dolan MD [facility] er [place], [place] [address] (Wo rk) 05/28/2022 Laboratory Appointment Lab 05/28/2022 Office Visit Cardiology Zulma Dolan MD [facility] [place] [address] Liz Poole PA [facility] [place] [address] 06/10/2022 Office Visit Dermatology Laura Scherer MD [facility] [place] [facility] [address] [place], [place] [address] (Wo rk) documented as of this encounter Visit Diagnoses Not on filedocumented in this encounter Care Teams Advertising Solicitor Relationship Specialty Start Date End Date Lovely Vicente MD PCP - General 04/16/[address] [place] [address] documented as of this encounter
--- OUTSIDE RECORDS SUMMARY | 2022-05-08 02:21 | XMS_ITS | Encounter Summary ---
:1945 Author Organization [facility] [place] [address] Care Team Providers Name Role Phone Lovely Vicente MD Primary Care Provider Reason for Visit Reason Comments Skin Check Encounter Details Date Type Department Care Team Description 07/06/2018 Office Visit Dermatology at [facility], Rigoberto Yarbrough (actinic keratosis); MD SHAY Quick III (seborrheic keratosis); 18 [facility] History of melanoma; [place] [address] Skin exam for malignant neoplasm [phone] [facility] [place], [place] [address] Social History Tobacco Use Types [...] leg - he had vascular surgery in [facility] while he lost several toes, they [...] Zulma Dolan MD [facility] [place], [place] [address] (Wo rk) 05/28/2022 Laboratory Appointment Lab 05/28/2022 Office Visit Cardiology Zulma Dolan MD [facility] [place] [address] Liz Poole PA [facility] [place] [address] 06/10/2022 Office Visit Dermatology Laura Scherer MD [facility] DR [address] [place], [place] [address] (Wo rk) documented as of this encounter Visit Diagnoses Diagnosis AK (actinic keratosis) Actinic keratosis SK (seborrheic keratosis) Other seborrheic keratosis History of melanoma Personal history of malignant melanoma o f skin Skin exam for malignant neoplasm Screening for malignant neoplasm of the skin documented in this encounter Care Teams Resource Conservation Specialist Relationship Specialty Start Date End Date Lovely Vicente MD PCP - General 04/16/[address] [place] [address] documented as of this encounter
--- OUTSIDE RECORDS SUMMARY | 2022-05-08 02:21 | XMS_ITS | Encounter Summary ---
:1945 Author Organization [facility] [place] [address] Care Team Providers Name Role Phone Lovely Vicente MD Primary Care Provider Encounter Details Date Type Department Care Team Description 08/15/2018 Laboratory Lab 3L [facility] Chronic systoli c heart failure; Appointment [facility] ASCVD (ar teriosclerotic cardiovascular disease) [place] [address] Social History Tobacco Use Types [...] MD [facility] er [place], [place] [address] (Wo rk) 05/28/2022 Laboratory Appointment Lab 05/28/2022 Office Visit Cardiology Zulma Dolan MD [facility] [place] [address] Liz Poole PA [facility] [place] [address] 06/10/2022 Office Visit Dermatology Laura Scherer MD [facility] ER DR [address] [place], [place] [address] (Wo rk) documented as of [...] Signature Glucose Lvl 116 65 - 199 [facility] mg/dL [facility] - [...] of body mass or the acutely ill. http://Gameotic/[facility]OR[facility] eGFR 79 >=60 mL/min/1.73 m?? [facility] Comment: The eGFR was calculated using the CKD-EP I equation. As with all creatinine based estimates of kidney function, eGFR values calculated with the CKD-EPI equation are not accurate in patients wi th acute kidney failure, extremes of body mass or the acutely ill. http://Gameotic/[facility] Specimen Anatomical Collection Method Collection Time Receive d Time (Source) Location / / Volume Laterality Blood specimen 08/15/2018 8:04 AM 019 8:20 (specimen) EST AM EST Resulting Agency Comment Spec In Lab Danette Maxwell APRN CHEMISTRY ORDERABLES Performing Organization Address City/State/[place] [address] Lipid Panel (08/15/2018 8:04 AM EST) P athologist Signature Chol, Total 75 mg/dL [facility] Comment: Lower Risk: <200 mg/dL Average Risk: 200-239 mg/dL Higher Risk: >ov=713 mg/dL Triglycerides 185 mg/dL [facility] Comment: Average Risk/Lower Risk: <150 mg/dL Borderline High Risk: 150-199 mg/dL High Risk: 200-499 mg/dL Very High Risk: >yi=500 mg/dL HDL 32 mg/dL [facility] Comment: Males: ?? Higher Risk: <40 mg/dL Females: ?? HIgher Risk: <50 mg/dL LDL Cholesterol 6 mg/dL [facility] Comment: Lowest Risk: <100 mg/dL Lower Risk: 100-129 mg/dL Borderline High Risk: 130-159 mg/dL High Risk: 160-189 mg/dL Very High Risk: >bi=981 mg/dL Chol/HDL Ratio 2.3 ratio [facility] Lipid Interpretation See Note [facility] Comment: Lipid management should be guided by a p atient? s ASCVD risk, goals and preferences. ACC/AHA Guidelines recommend high intens ity statin if clinical ASCVD or LDL greater than or equal to 190 mg/dL. http://[email or web address].com/NUS-OWZ-Pttccenlm Adults aged 40-75 with LDL 70-189 mg/dL should have their 10 year ASCVD risk estimated with the ACC/AHA ASCVD risk es timator http://tools.acc.org/DSKPX-Xaxb-Kruypudf r/ Statin should be discussed if risk [...] Organization Address City/State/[place] [address] (ABNORMAL) pro-Brain Natriuretic Peptide (08/15/2018 8:04 AM EST) athologist Signature ProBNP 1,797 (H) <=125 [facility] pg/mL [facility] Specimen Anatomical Collection Method Collection Time Receive d Time (Source) Location / / Volume Laterality Blood specimen 08/15/2018 8:04 AM 019 8:20 (specimen) EST AM EST Resulting Agency Comment Spec In Lab Danette Maxwell APRN CHEMISTRY ORDERABLES Performing Organization Address City/State/Z[place] [address] documented in this encounter Visit Diagnoses Diagnosis Chronic systolic heart failure ASCVD (arteriosclerotic cardiovascular d isease) Unspecified cardiovascular disease documented in this encounter Care Teams Lamp Developer Relationship Specialty Start Date End Date Lovely Vicente MD PCP - General 04/16/[address] [place] [address] documented as of this encounter
--- OUTSIDE RECORDS SUMMARY | 2022-05-08 02:21 | XMS_ITS | Encounter Summary ---
:1945 Author Organization [facility] [place] [address] Care Team Providers Name Role Phone Lovely Vicente MD Primary Care Provider Reason for Visit Reason Comments Establish Care Atrial Fibrillation Congestive Heart Failure Cardiomyopathy Encounter Details Date Type Department Care Team Description 09/06/2019 [facility] Ischemic [facility] Osvaldo STRANGE [address] [place], [place] CARDIOLOGY DEPT. [address] [place] [address] [phone] Social History Tobacco Use Types Packs/Day Years [...] today For any questions, call my office: [phone] To access your health care information, go to the web at: [email or web address] (you will need to register) For educational materials: [email or web address] Karel TRAMMELL.[facility], Clinical Cardiac Electrophysiology, [facility], [facility] A Healthy Heart: After Your Visit [...] least 2 servings of fish a week. [place], mackerel, mcfadden, sardines, and chunk light tuna [...] irregular heartbeat. After you call 911, the channel machine operator may tell you to chew [...] more? Visit our health information library at [email or web address]. You can also view health information on Comput[employer], your personal patient account. Log in or sign up today. Enter F075 in the search box to learn more about A Healthy Heart: After Your Visit. ?? [phone] [employer]. documented in this encounter Progress Notes Karel Mcelroy MD - 09/06/2019 2:20 PM EST Images from the original note were not included. Section of Cardiology/Cardiac Electrophysiology [facility] Clinical Cardiac Electrophysiology Consult Patient ID Don Fatima 1945 [id number] Don Fatima is referred to the EP clinic by Danette Maxwell APRN PhD Chief Complaint Dyspnea on exertion Ischemic cardiomyopathy History This is a 74 y.o. male following up/being seen in clinic for evaluation for ongoing anticoagulation. He has a Mdezo3Ppgn score of ~ 6-7. 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, is able to snow blow, can walk [...] on phone: None Gets together: None Attends adventism service: None Active member of club or [...] [facility] T: [phone] F: [phone] minutes of this 40 minute encounter were spent in counselling, as described above Cc: MD Danette Cr APRN PhD Janett Espino DPM documented in this encounter Plan of Treatment Upcoming Encounters Date Type Specialty Care Team Description 05/28/2022 Appointment Cardiology Zulma Dolan MD [facility] [place], [place] [address] (Wo rk) 05/28/2022 Laboratory Appointment Lab 05/28/2022 Office Visit Cardiology Zulma Dolan MD [facility] [place] [address] Liz Poole PA [facility] [place] [address] 06/10/2022 Office Visit Dermatology Laura Scherer MD [facility] DR [address] [place], [place] [address] (Wo rk) documented as [...] 446 ms MUSE SYSTEM (Bezet) Calculated P [place] 37 degrees MUSE SYSTEM Calculated R [place] -23 degrees MUSE SYSTEM Calculated T [place] 116 degrees MUSE SYSTEM INTERPRETATION Normal sinus rhythm MUSE SYSTEM Inferior infarct (cited on or before 25-JAN-2013) ST & T wave abnormality, consider anterolateral ischemia Abnormal ECG When compared with ECG of 19-AUG-2017 10:23, No significant change was found Confirmed by MD Cande, Michael ([id number]) on 09/08/2019 10:22:4 7 AM Specimen Anatomical [...] documented in this encounter Care Teams Air Export Agent Relationship Specialty Start Date End Date Lovely Vicente MD PCP - General 04/16/[address] [place] [address] documented as of this encounter
--- OUTSIDE RECORDS SUMMARY | 2022-05-08 02:21 | XMS_ITS | Encounter Summary ---
:1945 Author Organization [facility] [place] [address] Care Team Providers Name Role Phone Lovely Vicente MD Primary Care Provider Reason for Referral Diagnostic Test (Routine) - Closed Specialty Diagnoses / Procedures Referred By Contact Refer red To Contact Cardiology Diagnoses Ischemic cardiomyopathy Acute on chronic systolic congestive heart failure Danette Maxwell APRN [facility] Non-Inv Card Lab Procedures Echocardiogram Transthoracic(Leb) [facility] [place] [address] [place] [address] Referral ID Status Reason Start Date Expiration Date Visits V isits Requested Authorized [id number] Closed Specialty 08/30/2017 08/30/2018 1 1 Service Requested Reason for Visit Diagnostic Test (Routine) - Closed Specialty Diagnoses / Procedures Referred By Contact Refer red To Contact Cardiology Diagnoses Ischemic cardiomyopathy Acute on chronic systolic congestive heart failure Danette Maxwell APRN [facility] Non-Inv Card Lab Procedures Echocardiogram Transthoracic(Leb) [facility] [place] [address] [place] [address] Referral ID Status Reason Start Date Expiration Date Visits V isits Requested Authorized [id number] Closed Specialty 08/30/2017 08/30/2018 1 1 Service Requested Encounter Details Date Type Department Care Team Description 10/07/2017 Hospital Encounter Non-Invasive Ischemic cardiomyopathy; Cardiology Lab Barbara Craig on chronic systolic [place] [address] Social History Tobacco Use Types Packs/Day [...] Zulma Dolan MD [facility] [address] [place], [place] [address] (Wo rk) 05/28/2022 Laboratory Appointment Lab 05/28/2022 Office Visit Cardiology Zulma Dolan [place] [address] Liz Poole PA [facility] [place] [address] 06/10/2022 Office Visit Dermatology Laura Scherer MD [facility] [address] [place], [place] [address] (Wo rk) documented as [...] Mccollum ? (Age): 1945(72y) Med Rec#: ? [id number] ?Sex: ?M ? Site Loc: ? [facility] ?Ht / Wt: ??173(cm)/82(kg) Pt. Loc: ?Echo Lab ?BSA: ?1.96 Study Date: ?? 10/07/2017 ?Pt. Type: Outpatient Tape: ? Referring: Danette Maxwell Reading: Iker Cuevas ([id number]) R D Engineer: Yonathan Bocanegra Diagnosis: *ICD-10-PCS Ischemic cardiomyopathy [...] E-wave Vmax ?1.2 ?m/sec ? MV deceleration [id number] ?msec ? MV A-wave Vmax ?1 ?m/sec [...] ? Mid-Inferior ?Hypokinetic ? Mid-Inferoseptal ?Hypokinetic ? [place]-Septal ? Akinetic ? [place]-Anterior ? Hypokinetic ? [place]-Lateral ?Hypokinetic ? [place]-Inferior ? Hypokinetic ? [place]-Tip ?Akinetic ? This report has been electronically sign ed by: _ Iker uCevas M.D. ? 10/07/2017 11:12:34 Images reviewed and interpretation verif ied [facility] Cardiac Ultrasound Laboratory Procedure Note Iker Cuevas MD - 10/07/2017Formatti ng of this note might be different from the original. Procedure: Transthoracic Echocardiogram Patient: NATALYA MCBRIDE(Age): [birth year]72y) Med Rec#: [id number] Sex: M Site Loc: [facility] Ht / Wt: 173(cm)/82(kg) Pt. Loc: Echo Lab BSA: 1.96 Study Date: 10/07/2017 Pt. Type: Outpati ent Tape: Referring: Danette Maxwell Reading: Iker Cuevas ([id number]) R D Engineer: Yonathan Bocanegra Diagnosis: *ICD-10-PCS Ischemic cardiomyopathy [...] MV E-wave Vmax 1.2 m/sec MV deceleration [id number] msec MV A-wave Vmax 1 m/sec MV [...] Akinetic Mid-Posterolateral Hypokinetic Mid-Inferior Hypokinetic Mid-Inferoseptal Hypokinetic [place]-Septal Akinetic [place]-Anterior Hypokinetic [place]-Lateral Hypokinetic [place]-Inferior Hypokinetic [place]-Tip Akinetic This report has been electronically sign [...] documented in this encounter Care Teams Brick Veneer Maker Relationship Specialty Start Date End Date Lovely Vicente MD PCP - General 04/16/[address] [place] [address] documented as of this encounter
--- OUTSIDE RECORDS SUMMARY | 2022-05-08 02:21 | XMS_ITS | Encounter Summary ---
:1945 Author Organization [facility] [place] [address] Care Team Providers Name Role Phone Lovely Vicente MD Primary Care Provider Encounter Details Date Type Department Care Team Description 10/05/2017 Unscheduled Cardiology at [facility] Sin PATIENT NOT SEEN Encounter [facility] Tamiko Martinez MD [facility] [place] [address] CARDIOLOGY DEPT [phone] [place] [address] Social History Tobacco Use Types Packs/Day Years [...] Dolan MD [facility] [address] [place], [place] [address] (Wo rk) 05/28/2022 Laboratory Appointment Lab 05/28/2022 Office Visit Cardiology Zulma Dolan MD [facility] [place] [address] Liz Poole PA [facility] [place] [address] 06/10/2022 Office Visit Dermatology Laura Scherer MD [facility] [address] [place], [place] [address] (Wo rk) documented as of this encounter Visit Diagnoses Diagnosis DH PATIENT NOT SEEN documented in this encounter Care Teams Machine Setter Automatic Relationship Specialty Start Date End Date Lovely Vicente MD PCP - General 04/16/[address] [place] [address] documented as of this encounter
--- OUTSIDE RECORDS SUMMARY | 2022-05-08 02:21 | XMS_ITS | Encounter Summary ---
:1945 Author Organization [facility] [place] [address] Care Team Providers Name Role Phone Lovely Vicente MD Primary Care Provider Reason for Visit Reason Onset Date Comments Follow-up 07/13/2018 amiodarone discontin ued Encounter Details Date Type Department Care Team Description 07/13/2018 Telephone Cardiology at [facility] Martha Comer, Follow-up (amiodarone [facility] RN discontin ued) [place] [address] Social History Tobacco Use Types Packs/Day [...] RN - 07/13/2018 8:57 AM EST Per DISTRIBUTION ENGINEERING TECHNOLOGIST Hans call placed to the home number for the pt. confirmed that the pt is still taking the amiodarone. Pt is to stop the amiodarone. Pt taking it for post op a-fib, therapy was supposed to be for 30 days. Message given to his . She will give him the message and will have him call with any questions. Call placed to the [facility] pharmacy in [place] to discontinue it there as well. Med list updated. documented in this encounter Plan of Treatment Upcoming Encounters Date Type Specialty Care Team Description 05/28/2022 Appointment Cardiology Zulma Dolan MD [facility] [address] [place], [place] [address] (Wo rk) 05/28/2022 Laboratory Appointment Lab 05/28/2022 Office Visit Cardiology Zulma Dolan MD [facility] [place] [address] Liz Poole PA [facility] [place] [address] 06/10/2022 Office Visit Dermatology Laura Scherer MD [facility] [address] [place], [place] [address] (Wo rk) documented as of this encounter Visit Diagnoses Not on filedocumented in this encounter Care Teams Inspector Watch Parts Relationship Specialty Start Date End Date Lovely Vicente MD PCP - General 04/16/[address] [place] [address] documented as of this encounter
--- OUTSIDE RECORDS SUMMARY | 2022-05-08 02:21 | XMS_ITS | Encounter Summary ---
:1945 Author Organization [place] [place] [address] Care Team Providers Name Role Phone Lovely Vicente MD Primary Care Provider Reason for Referral Diagnostic Test (Routine) - Closed Specialty Diagnoses / Procedures Referred By Contact Refer red To Contact Cardiology Diagnoses Chronic systolic heart failure Danette Maxwell APRN [facility] Non-Inv Card Lab Procedures Echocardiogram Transthoracic(Leb) [place] [address] [place] [address] Referral ID Status Reason Start Date Expiration Date Visits V isits Requested Authorized [id number] Closed Specialty 07/17/2019 09/14/2019 1 1 Service Requested Reason for Visit Diagnostic Test (Routine) - Closed Specialty Diagnoses / Procedures Referred By Contact Refer red To Contact Cardiology Diagnoses Chronic systolic heart failure Danette Maxwell APRN [facility] Non-Inv Card Lab Procedures Echocardiogram Transthoracic(Leb) [facility] [place] [address] [place] [address] Referral ID Status Reason Start Date Expiration Date Visits V isits Requested Authorized [id number] Closed Specialty 07/17/2019 09/14/2019 1 1 Service Requested Encounter Details Date Type Department Care Team Description 07/28/2019 Hospital Encounter Non-Invasive Chronic s ystolic [place] [address] Social History Tobacco Use Types Packs/Day [...] Zulma Dolan MD [facility] [place], [place] [address] (Wo rk) 05/28/2022 Laboratory Appointment Lab 05/28/2022 Office Visit Cardiology Zulma Dolan MD [facility] [place] [address] Liz Poole PA [facility] [place] [address] 06/10/2022 Office Visit Dermatology Laura Scherer MD [facility] [address] [place]LOG[place], [place] [address] (Wo rk) documented as of [...] Mccollum ? (Age): 1945(74y) Med Rec#: ? [id number] ?Sex: ?M ? Site Loc: ? [facility] ?Ht / Wt: ??172(cm)/81(kg) Pt. Loc: ?Echo Lab ?BSA: ?1.94 Study Date: ?? 07/28/2019 ?Pt. Type: Outpatient Tape: ? Referring: MARY ELLEN Reading: Ifeanyi Truong ([id number]) Pharmacometrician: Fadumo Flanagan RDCS, FASE Diagnosis: *Chronic systolic [...] E-wave Vmax ?1 ?m/sec ? MV deceleration aypq175.5 ? msec ? MV A-wave Vmax ?1 [...] ? Mid-Inferior ?Hypokinetic ? Mid-Inferoseptal ?Normal ? [place]-Septal ? Normal ? [place]-Anterior ? Hypokinetic ? [place]-Lateral ?Normal ? [place]-Inferior ? Akinetic ? [place]-Tip ?Hypokinetic ? This report has been electronically sign ed by: _ Ifeanyi Truong M.D. ? 07/28/2019 0 8:38:01 Images reviewed and interpretation verif ied [facility] Cardiac Ultrasound Laboratory Procedure Note Ifeanyi Truong MD - 07/28/2019Formatt ing of this note might be different from the original. Procedure: Transthoracic Echocardiogram Patient: NATALYA MCBRIDE(Age): [birth year]74y) Med Rec#: [id number] Sex: M Site Loc: [facility] Ht / Wt: 172(cm)/81(kg) Pt. Loc: Echo Lab BSA: 1.94 Study Date: 07/28/2019 Pt. Type: Outpati ent Tape: Referring: MARY ELLEN Reading: Ifeanyi Truong ([id number]) Pharmacometrician: Fadumo Flanagan NELSON, [facility] Diagnosis: *Chronic systolic (congestive) heart fa [...] MV E-wave Vmax 1 m/sec MV deceleration xkwc910.5 msec MV A-wave Vmax 1 m/sec MV [...] Normal Mid-Posterolateral Normal Mid-Inferior Hypokinetic Mid-Inferoseptal Normal [place]-Septal Normal [place]-Anterior Hypokinetic [place]-Lateral Normal [place]-Inferior Akinetic [place]-Tip Hypokinetic This report has been electronically sign ed by: _ Ifeanyi Truong M.D. 07/28/2019 08:38:0 1 Images reviewed and interpretation elvie hwang [facility] Cardiac Ultrasound Laboratory Danette A Hans QUINONES [...] Routine documented in this encounter Care Teams Sub Acute Care Nurse Relationship Specialty Start Date End Date Lovely Vicente MD PCP - General 04/16/[address] [place] [address] documented as of this encounter
--- OUTSIDE RECORDS SUMMARY | 2022-05-08 02:21 | XMS_ITS | Encounter Summary ---
:1945 Author Organization [facility] [place] [address] Care Team Providers Name Role Phone Lovely Vicente MD Primary Care Provider Encounter Details Date Type Department Care Team Description 09/06/2017 Telephone Vascular Surgery at [facility] Ninfa Clark, [place] [address] Social History Tobacco Use Types Packs/Day [...] Dolan MD [facility] [place], [place] [address] (Wo rk) 05/28/2022 Laboratory Appointment Lab 05/28/2022 Office Visit Cardiology Zulma Dolan MD [facility] [place] [address] Liz Poole PA [facility] [place] [address] 06/10/2022 Office Visit Dermatology Laura Scherer MD [facility] [address] [place], [place] [address] (Wo rk) documented as of this encounter Visit Diagnoses Not on filedocumented in this encounter Care Teams Warehouse Packer Relationship Specialty Start Date End Date Lovely Vicente MD PCP - General 04/16/[address] [place] [address] documented as of this encounter
--- OUTSIDE RECORDS SUMMARY | 2022-05-08 02:21 | XMS_ITS | Encounter Summary ---
:1945 Author Organization [facility] Address [facility] [place] [address] Care Team Providers Name Role Phone Lovely Vicente MD Primary Care Provider Reason for Referral Diagnostic Test (Routine) - Specialty Diagnoses / Procedures Referred By Contact Refer red To Contact Cardiology Diagnoses Chronic systolic heart failure Danette Maxwell APRN [facility] Non-Inv Card Lab Procedures Echocardiogram Transthoracic(Leb) [facility] [place] [address] [place] [address] Referral ID Status Reason Start Date Expiration Visits Visits Date Requested Authorized [id number] Specialty 08/15/2018 08/15/2018 1 1 Service Requested Encounter Details Date Type Department Care Team Description 04/18/2018 Office Visit Cardiology at [facility] Danette Maxwell Chronic systolic heart failu re; [facility] STACIE Gomes On amiodarone therapy; [facility] Ischemic cardiomyopathy; [place], [place] DR ONOFRE (arteriosclerotic cardiovascular d isease) [address] CARDIOLOGY [phone] [place], [place] [address] Social History Tobacco Use Types Packs/Day Years [...] in this encounter Progress Notes Danette Maxwell, PEGGER - 04/18/2018 10:40 AM EDT ID and [...] x 80 10/25/2017: right popliteal-pedal bypass at [facility] ? Plan: 1. A review of [...] Zulma Dolan MD [facility] [address] [place], [place] [address] (Wo rk) 05/28/2022 Laboratory Appointment Lab 05/28/2022 Office Visit Cardiology Zulma Dolan MD [facility] [place] [address] Liz Poole PA [facility] [place] [address] 06/10/2022 Office Visit Dermatology Laura Scherer MD [facility] DR [address] [place], [place] [address] (Wo rk) documented as of this encounter Results ECHOCARDIOGRAM COMPLETE W CONTRAST (08/15/2018 7:55 AM EST) P athologist Signature EF 35 [facility] SYSTEM Anatomical Region Laterality Modality Other Specimen (Source) Anatomical Location Collection Method / Collectio n Time Received Time / Laterality Volume 08/15/2018 Narrative 08/15/2018 8:18 AM EST Procedure: ?Transthoracic Echocardiogram Patient: ?NATALYA Mccollum ? (Age): 1945(73y) Med Rec#: ? [id number] ?Sex: ?M ? Site Loc: ? [facility] ?Ht / Wt: ??172(cm)/81(kg) Pt. Loc: ?Echo Lab ?BSA: ?1.94 Study Date: ?? 08/15/2018 ?Pt. Type: Outpatient Tape: ? Referring: MARY ELLEN Reading: Scott Ortega ([id number]) Nuclear Plant Technical Advisor: Laura Sargent Diagnosis: *Chronic systolic (congestive) heart [...] E-wave Vmax ?1.2 ?m/sec ? MV deceleration tbuk649.4 ? msec ? MV A-wave Vmax ?0.7 [...] ? Mid-Inferior ?Hypokinetic ? Mid-Inferoseptal ?Hypokinetic ? [place]-Septal ? Akinetic ? [place]-Anterior ? Hypokinetic ? [place]-Lateral ?Akinetic ? [place]-Inferior ? Hypokinetic ? [place]-Tip ?Akinetic ? This report has been electronically sign ed by: _ Scott Ortega M.D. ? 08/15/2018 08:17:26 Images reviewed and interpretation verif ied [facility] Cardiac Ultrasound Laboratory Procedure Note Scott Ortega MD - 08/15/2018Format ting of this note might be different from the original. Procedure: Transthoracic Echocardiogram Patient: NATALYA MCBRIDE(Age): [birth year]73y) Med Rec#: [id number] Sex: M Site Loc: [facility] Ht / Wt: 172(cm)/81(kg) Pt. Loc: Echo Lab BSA: 1.94 Study Date: 08/15/2018 Pt. Type: Outpati ent Tape: Referring: MARY ELLEN Reading: Scott Ortega ([id number]) Nuclear Plant Technical Advisor: Laura Sargent Diagnosis: *Chronic systolic (congestive) heart [...] MV E-wave Vmax 1.2 m/sec MV deceleration oube573.4 msec MV A-wave Vmax 0.7 m/sec MV [...] Akinetic Mid-Posterolateral Akinetic Mid-Inferior Hypokinetic Mid-Inferoseptal Hypokinetic [place]-Septal Akinetic [place]-Anterior Hypokinetic [place]-Lateral Akinetic [place]-Inferior Hypokinetic [place]-Tip Akinetic This report has been electronically sign ed by: _ Scott Ortega M.D. 08/15/2018 08:17: 26 Images reviewed and interpretation verif ied [facility] Cardiac Ultrasound Laboratory Danette Maxwell APRN ECHO ORDERABLES (ABNORMAL) Basic Metabolic Panel (non-fasting) (04/18/2018 9:19 AM EDT) P athologist Signature Glucose Lvl 167 65 - 199 [facility] mg/dL [facility] [...] of body mass or the acutely ill. http://[employer]/[facility] eGFR 70 >=60 mL/min/1.73 m?? [facility] Comment: The eGFR was calculated using the CKD-EP I equation. As with all creatinine based estimates of kidney function, eGFR values calculated with the CKD-EPI equation are not accurate in patients wi th acute kidney failure, extremes of body mass or the acutely ill. http://[employer]/[facility] Specimen Anatomical Collection Method Collection Time Receive d Time (Source) Location / / Volume Laterality Blood specimen 04/18/2018 9:19 AM 018 9:34 (specimen) EDT AM EDT Resulting Agency Comment Spec In Lab Danette Maxwell APRN CHEMISTRY ORDERABLES Performing Organization Address City/State/[place] [address] (ABNORMAL) pro-Brain Natriuretic Peptide (04/18/2018 9:19 AM EDT) P athologist Signature ProBNP 2,199 (H) <=125 [facility] pg/mL [facility] Specimen Anatomical Collection Method Collection Time Receive d Time (Source) Location / / Volume Laterality Blood specimen 04/18/2018 9:19 AM 018 9:34 (specimen) EDT AM EDT Resulting Agency Comment Spec In Lab Danette Maxwell APRN CHEMISTRY ORDERABLES Performing Organization Address City/State/[place] [address] documented in this encounter Visit Diagnoses Diagnosis Chronic systolic heart failure On amiodarone therapy Ischemic cardiomyopathy Other specified forms of chronic ischemi c heart disease ASCVD (arteriosclerotic cardiovascular d isease) Unspecified cardiovascular disease Chronic systolic heart failure documented in this encounter Care Teams Wardrobe Custodian Relationship Specialty Start Date End Date Lovely Vicente MD PCP - General 04/16/[address] [place] [address] documented as of this encounter
--- OUTSIDE RECORDS SUMMARY | 2022-05-08 02:22 | XMS_ITS | Encounter Summary ---
:1945 Author Organization [facility] [place] [address] Care Team Providers Name Role Phone Lovely Vicente MD Primary Care Provider Reason for Visit Reason Comments Follow-up I'm having trouble with the VAC Encounter Details Date Type Department Care Team Description 08/26/2017 Office Visit Vascular Surgery at [facility], STEPHANIE Mercado Atheroembolism of foot, right; [facility] [address] Delayed surgical wound healing, initial encounter; [facility] VASCULAR SURG YEHUDA Acute on chronic systolic congestive hea rt failure ; [place], [place] [address] [phone] Social History Tobacco Use Types Packs/Day Years [...] home and into the care of the [facility]. However, since discharge from [facility] he has had some difficulty with continuation [...] SETUP performed by Manny Mcknight MD at [facility] MAIN OR ??? PRO AMPUTATION FOOT, TRANSMETATARSAL Right 08/09/2017 AMPUTATION, TRANSMETATARSAL (WRVU 12.71) performed by Yonathan Smith MD at [facility] MAIN OR ??? PRO CABG, ARTERIAL, SINGLE N/A 07/07/2017 @CABG, USING ARTERIAL GRAFT;SINGLE ARTERIAL GRAFT (WRVU 33.75) performed by Yuan Retana MD at [facility] MAIN OR ??? PRO CABG, ARTERY-VEIN, TWO N/A 07/07/2017 @CABG, TWO VENOUS GRAFTS & ARTERIAL GRAFT (WRVU 7.93) performed by Yuan Retana MD at [facility] MAIN OR ??? PRO COLONOSCOPY, REMV LESN, SNARE 01/16/2014 COLONOSCOPY, POLYPECTOMY, REMOVAL LESION BY SNARE performed by Nohemi Jaimes MD at [facility] ENDOSCOPY ??? PRO DRESSING CHANGE UNDER ANESTHESIA Right 08/11/2017 (MSURG) DRESSING CHANGE (FOR OTHER THAN IVAN) UNDER ANES. (WRVU 0.86) performed by Lamar Smith MD at [facility] MAIN OR ??? PRO ENDOSCOPY W/VIDEO-ASST VEIN HARVEST, CABG Right 07/07/2017 ENDOSCOPIC HARVEST VEIN(S) FOR CABG (WRVU 0.31) performed by Yuan Retana MD at [facility] MAIN OR ??? PRO THYROIDECTOMY 03/28/2013 THYROIDECTOMY, TOTAL OR COMPLETE performed by Manny Mcknight MD at [facility] MAIN OR Social Hx: Social [...] Zulma Dolan MD [facility] [place], [place] [address] (Wo rk) 05/28/2022 Laboratory Appointment Lab 05/28/2022 Office Visit Cardiology Zulma Dolan MD [facility] [place] [address] Liz Poole PA [facility] [place] [address] 06/10/2022 Office Visit Dermatology Laura Scherer MD [facility] [address] [place], [place] [address] (Wo rk) documented as of [...] Component Value Ref Test Analysis Performed At [facility] Method Time Signature VB Text Department: Vascular Surgery Lab VASCUBASE Report Patient: [id number] (GREGORY FATIMA) CPT: 79638 ICD10: T81.89XA;I75.021 Referring Physician: ARIK CLEMENT ?? [...] Lvl 98 65 - [address] [facility] mg/dL [facility] [...] [facility] Estimated GFR >60 >=60 [facility] Comment: The reported eGFR should be multiplied b y 1.2 for patients. The MDRD is not an appropriate measure o f renal function for patients with body mass extremes or in patients with acute kidney failure. http://[employer]/DHnkdep http://[employer]/DHMCnkf Specimen Anatomical Collection Method Collection Time Receive d Time (Source) Location / / Volume Laterality Blood specimen 08/26/2017 2:00 PM 018 2:15 (specimen) EST PM EST Resulting Agency Comment Spec In Lab Danette Maxwell CERTIFIED WELLNESS PROGRAM COORDINATOR CHEMISTRY ORDERABLES Performing Organization Address City/[facility]/ZIP Code Phon e Number [address] (ABNORMAL) pro-Brain Natriuretic Peptide (08/26/2017 2:00 PM EST) P athologist Signature ProBNP 2,373 (H) <=[address] [facility] pg/mL [facility]OR[facility]ORY Specimen Anatomical Collection Method Collection Time Receive d Time (Source) Location / / Volume Laterality Blood specimen 08/26/2017 2:00 PM 018 2:15 (specimen) EST PM EST Resulting Agency Comment Spec In Lab Danette A [place] STACIE CHEMISTRY ORDERABLES Performing Organization Address City/[facility] [place] [address] documented in this encounter Visit Diagnoses Diagnosis Atheroembolism of foot, right Delayed surgical wound healing, initial encounter Acute on chronic systolic congestive hea rt failure Acute on chronic systolic heart failure Ischemic cardiomyopathy Other specified forms of chronic ischemi c heart disease documented in this encounter Care Teams Copy Worker Relationship Specialty Start Date End Date Lovely Vicente MD PCP - General 04/16/[address] [place] [address] documented as of this encounter
--- OUTSIDE RECORDS SUMMARY | 2022-05-08 02:22 | XMS_ITS | Encounter Summary ---
:1945 Author Organization [facility] [place] [address] Care Team Providers Name Role Phone Lovely Vicente MD Primary Care Provider Encounter Details Date Type Department Care Team Description 08/30/2017 [facility] ischemia [facility] [address] [place] VASCULAR SURGERY [address] [place] [address] [phone] Social History Tobacco Use Types Packs/Day Years [...] Smith MD - 08/30/2017 2:00 PM EST [facility] staff: Patient returns. He is doing [...] Zulma Dolan MD [facility] [address] [place], [place] [address] (Wo rk) 05/28/2022 Laboratory Appointment Lab 05/28/2022 Office Visit Cardiology Zulma Dolan MD [facility] [place] [address] Liz Poole PA [facility] [place] [address] 06/10/2022 Office Visit Dermatology Laura Scherer MD [facility] [address] [place], [place] [address] (Wo rk) documented as of this encounter Visit Diagnoses Diagnosis Critical lower limb ischemia Unspecified circulatory system disorder documented in this encounter Care Teams Clamp Operator Relationship Specialty Start Date End Date Lovely Vicente MD PCP - General 04/16/[address] [place] [address] documented as of this encounter
--- OUTSIDE RECORDS SUMMARY | 2022-05-08 02:22 | XMS_ITS | Encounter Summary ---
:1945 Author Organization [facility] [place] [address] Care Team Providers Name Role Phone Lovely Vicente MD Primary Care Provider Encounter Details Date Type Department Care Team Description 08/19/2017 Office Visit Vascular Surgery at [place], PAD (peripheral artery [facility] FOOD AND BEVERAGE CHECKER disease) [facility] [address] [place], [place] VASCULAR SURGERY [address] [place] [address] [phone] Social History Tobacco Use Types Packs/Day Years [...] Zulma Dolan MD [facility] [place], [place] [address] (Wo rk) 05/28/2022 Laboratory Appointment Lab 05/28/2022 Office Visit Cardiology Zulma Dolan MD [facility] [place] [address] Liz Poole PA [facility] [place] [address] 06/10/2022 Office Visit Dermatology Laura Scherer MD [facility] [address] [place], [place] [address] (Wo rk) documented as of this encounter Visit Diagnoses Diagnosis PAD (peripheral artery disease) Peripheral vascular disease, unspecified documented in this encounter Care Teams Cemetery Workers Supervisor Relationship Specialty Start Date End Date Lovely Vicente MD PCP - General 04/16/[address] [place] [address] documented as of this encounter
--- OUTSIDE RECORDS SUMMARY | 2022-05-08 02:22 | XMS_ITS | Encounter Summary ---
:1945 Author Organization [facility] [place] [address] Care Team Providers Name Role Phone Lovely Vicente MD Primary Care Provider Encounter Details Date Type Department Care Team Description 08/25/2017 Telephone Pain Management at [facility] [place], [place] [address] Social History Tobacco Use Types Packs/Day [...] Management Center Preauthorization Request Patient: Don Fatima [id number] Fax received from [employer] denying prior authorization for Lidocaine Patches prescribed by Barbra Soares APRN. RX insurance plan: [employer] RX insurance telephone: [phone] Patient Diagnosis: right foot pain secondary to PVD and ischemia ? Previous medications attempted: Tylenol, Tramadol, Dilaudid Authorization/Reference number: [id number] _x_ denied, provider and patient informed _x_ appeal initiated by provider, patient informed Angeles Rodrigez, RN documented in this encounter Plan of Treatment Upcoming Encounters Date Type Specialty Care Team Description 05/28/2022 Appointment Cardiology Zulma Dolan MD [facility] [place], [place] [address] (Wo rk) 05/28/2022 Laboratory Appointment Lab 05/28/2022 Office Visit Cardiology Zulma Dolan MD [facility] [place] [address] Liz Poole PA [facility] [place] [address] 06/10/2022 Office Visit Dermatology Laura Scherer MD [facility] [address] [place], [place] [address] (Wo rk) documented as of this encounter Visit Diagnoses Not on filedocumented in this encounter Care Teams Duct Cleaner Relationship Specialty Start Date End Date Lovely Vicente MD PCP - General 04/16/[address] [place] [address] documented as of this encounter
--- OUTSIDE RECORDS SUMMARY | 2022-05-08 02:22 | XMS_ITS | Encounter Summary ---
:1945 Author Organization [facility] [place] [address] Care Team Providers Name Role Phone Lovely Vicente MD Primary Care Provider Encounter Details Date Type Department Care Team Description 08/26/2017 Hospital Encounter Vascular Lab at [facility], Athero embolism of foot, right; [place], [place] Delayed surgi nusrat wound healing, [place] [phone] Social History Tobacco Use Types Packs/Day Years [...] Zulma Dolan MD [facility] [address] [place], [place] [address] (Wo rk) 05/28/2022 Laboratory Appointment Lab 05/28/2022 Office Visit Cardiology Zulma Dolan MD [facility] [place] [address] Liz Poole PA [facility] [place] [address] 06/10/2022 Office Visit Dermatology Laura Scherer MD [facility] [address]LOG[address] [place], [place] [address] (Wo rk) documented as [...] Department: Vascular Surgery Lab VASCUBASE Report Patient: [id number] (DON HOANG) CPT: 46242 ICD10: T81.89XA;I75.021 Referring Physician: ELVER BLOOM ?? [...] encounter documented in this encounter Care Teams Turbinated Bone Grinder Relationship Specialty Start Date End Date Lovely Vicente MD PCP - General 04/16/[address] [place] [address] documented as of this encounter
--- OUTSIDE RECORDS SUMMARY | 2022-05-08 02:22 | XMS_ITS | Encounter Summary ---
:1945 Author Organization [facility] [place] [address] Care Team Providers Name Role Phone Lovely Vicente MD Primary Care Provider Reason for Visit Reason Onset Date Comments VNA Calls 08/30/2017 Encounter Details Date Type Department Care Team Description 08/30/2017 Telephone [place] [facility] [place]a Reid RN [facility]NA Calls [facility] [place] [address] Social History Tobacco Use Types Packs/Day [...] 08/30/2017 11:16 AM EST Caller: Alfonso at [facility] [phone] Reason for call: Changing his wound vac [...] had been in contact with [facility]'s Wound Care Nurse who advised [...] Description 05/28/2022 Appointment Cardiology Zulam Dolan MD [facility] [place] [address] (Wo rk) 05/28/2022 Laboratory Appointment Lab 05/28/2022 Office Visit Cardiology Zulma Dolan [place] [address] Liz Poole PA [facility] [place] [address] 06/10/2022 Office Visit Dermatology Laura Scherer MD [facility] DR [address] [place], [place] [address] (Wo rk) documented as of this encounter Visit Diagnoses Not on filedocumented in this encounter Care Teams Flight Surveyor Relationship Specialty Start Date End Date Lovely Vicente MD PCP - General 04/16/[address] [place] [address] documented as of this encounter
--- OUTSIDE RECORDS SUMMARY | 2022-05-08 02:22 | XMS_ITS | Encounter Summary ---
:1945 Author Organization [facility] [place] [address] Care Team Providers Name Role Phone Lovely Vicente MD Primary Care Provider Reason for Referral Diagnostic Test (Routine) - Closed Specialty Diagnoses / Procedures Referred By Contact Refer red To Contact Cardiology Diagnoses Ischemic cardiomyopathy Acute on chronic systolic congestive heart failure Danette Maxwell APRN [facility] Non-Inv Card Lab Procedures Echocardiogram Transthoracic(Leb) [facility] [place] [address] [place] [address] Referral ID Status Reason Start Date Expiration Date Visits V isits Requested Authorized [id number] Closed Specialty 08/30/2017 08/30/2018 1 1 Service Requested Encounter Details Date Type Department Care Team Description 08/26/2017 [place] Visit [place] [facility] [place]ette Maxwell Ischemic cardiomyopathy; [facility] STACIE Gomes Acute on chronic systolic congestive hea rt failure ; Drive [facility] ASCVD (arteriosclerotic card iovascular disease); [place], [place] PAF (paroxysmal atrial fibrillation); [id number] CARDIOLOGY PAD (peripheral artery disease) [phone] [place], [place] [address] Social History Tobacco Use Types Packs/Day Years [...] painful and 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 [...] Zulma Dolan MD [facility] [place], [place] [address] (Wo rk) 05/28/2022 Laboratory Appointment Lab 05/28/2022 Office Visit Cardiology Zulma Dolan MD [facility] [place] [address] Liz Poole PA [facility] [place] [address] 06/10/2022 Office Visit Dermatology Laura Scherer MD [facility] DR TE[address] [place], [place] [address] (Wo rk) documented as of this encounter Results ECHOCARDIOGRAM COMPLETE W CONTRAST (10/07/2017 10:23 AM EDT) athologist Signature EF 45 [facility]ART[facility] SYSTEM Anatomical Region Laterality Modality Other Specimen (Source) Anatomical Location Collection Method / Collectio n Time Received Time / Laterality Volume 10/07/2017 Narrative 10/07/2017 11:13 AM EDT Procedure: ?Transthoracic Echocardiogram Patient: ?NATALYA Mccollum ? (Age): 1945(72y) Med Rec#: ? [id number] ?Sex: ?M ? Site Loc: ? [facility] ?Ht / Wt: ??173(cm)/82(kg) Pt. Loc: ?Echo Lab ?BSA: ?1.96 Study Date: ?? 10/07/2017 ?Pt. Type: Outpatient Tape: ? Referring: Danette Maxwell Reading: Iker Cuevas ([id number]) Control Room Operator: Yonathan Bocanegra Diagnosis: *ICD-10-PCS Ischemic cardiomyopathy [...] E-wave Vmax ?1.2 ?m/sec ? MV deceleration [id number] ?msec ? MV A-wave Vmax ?1 ?m/sec [...] ? 10/07/2017 11:12:34 Images reviewed and interpretation [facility] Cardiac Ultrasound Laboratory Procedure Note Iker Cuevas MD - 10/07/2017Formatti ng of this note might be different from the original. Procedure: Transthoracic Echocardiogram Patient: NATALYA Mccollum (Age): [birth year]72y) Med Rec#: [id number] Sex: M Site Loc: [facility] Ht / Wt: 173(cm)/82(kg) Pt. Loc: Echo Lab BSA: 1.96 Study Date: 10/07/2017 Pt. Type: Outpati ent Tape: Referring: Danette Maxwell Reading: Iker Cuevas ([id number]) Control Room Operator: Yonathan Bocanegra Diagnosis: *ICD-10-PCS Ischemic cardiomyopathy [...] MV E-wave Vmax 1.2 m/sec MV deceleration [id number] msec MV A-wave Vmax 1 m/sec MV [...] 10/07/2017 11:12 :34 Images reviewed and interpretation [facility] Cardiac Ultrasound Laboratory Danette Maxwell APRN ECHO ORDERABLES Basic Metabolic Panel (non-fasting) (08/26/2017 2:00 PM EST) P athologist Signature Glucose Lvl 98 65 - 199 [facility] mg/dL [facility] [...] or in patients with acute kidney failure. [email or web address] [email or web address] Specimen Anatomical Collection Method Collection Time Receive d Time (Source) Location / / Volume Laterality Blood specimen 08/26/2017 2:00 PM 018 2:15 (specimen) EST PM EST Resulting Agency Comment Spec In Lab Danette Maxwell APRN CHEMISTRY ORDERABLES Performing Organization Address City/State/ZIP Code Phon e Number [address] (ABNORMAL) pro-Brain Natriuretic Peptide (08/26/2017 2:00 PM EST) P athologist Signature ProBNP 2,373 (H) <=125 [facility] RYAN pg/mL [facility] LABORATORY Specimen Anatomical Collection Method Collection Time Receive d Time (Source) Location / / Volume Laterality Blood specimen 08/26/2017 2:00 PM 018 2:15 (specimen) EST PM EST Resulting Agency Comment Spec In Lab Danette Maxwell APRN CHEMISTRY ORDERABLES Performing Organization Address City/State/ZIP [place] [address] documented in this encounter [...] failure documented in this encounter Care Teams Concrete Engineering Technician Relationship Specialty Start Date End Date Lovely Vicente MD PCP - General 04/16/[address] [place] [address] documented as of this encounter
--- OUTSIDE RECORDS SUMMARY | 2022-05-08 02:22 | XMS_ITS | Encounter Summary ---
:1945 Author Organization [facility] [place] [address] Care Team Providers Name Role Phone Lovely Vicente MD Primary Care Provider Encounter Details Date Type Department Care Team Description 08/19/2017 Hospital Encounter XRay at [facility] Martha Teague, S/P CABG x [address] [facility] [place] [address] [place] [address] RD [phone] [facility] [place], [place] [address] (Wo rk) Social History [...] Zulma Dolan MD [facility] [place], [place] [address] (Wo rk) 05/28/2022 Laboratory Appointment Lab 05/28/2022 Office Visit Cardiology Zulma Dolan MD [facility] [place] [address] Liz Poole PA [facility] [place] [address] 06/10/2022 Office Visit Dermatology Laura Scherer MD [facility] DR [address] [place], [place] [address] [...] 2017 EXAMINATION: XR CHEST PA AND LATERAL (Share Some StyleIC) CLINICAL HISTORY: CABG x 3 TECHNIQUE: PA [...] status documented in this encounter Care Teams Coordinate Measuring Machine Operator Relationship Specialty Start Date End Date Lovely Vicente MD PCP - General 04/16/[address] [place], [place] [address]Y [facility] 1 [place] [address] documented as of this encounter
--- OUTSIDE RECORDS SUMMARY | 2022-05-08 02:22 | XMS_ITS | Encounter Summary ---
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 In summary, Mr. aFtima has recovered from his bypass surgery we are going to discharge him from ourservice at this time and leave them in your care. In the interim should there be anything further that I can provide please do not hesitate to contact my office. Best personal regards, Yuan [facility] MD [phone] documented in this encounter Plan of Treatment Upcoming Encounters Date Type Specialty Care Team Description 05/28/2022 Appointment Cardiology Zulma Dolan MD [facility] [place] [address] [place] [address] (Wo rk) 05/28/2022 Laboratory Appointment Lab 05/28/2022 Office Visit Cardiology Zulma Dolan MD [facility] [place] [address] Liz Poole PA [facility] [place] [address] 06/10/2022 Office Visit Dermatology Laura Scherer MD [facility] ER DR [address] [place] [address] (Wo rk) documented as of this encounter [...] 454 ms MUSE SYSTEM (Bezet) Calculated P Harrah 20 degrees MUSE SYSTEM Calculated R Harrah -29 degrees MUSE SYSTEM Calculated T Harrah 121 degrees MUSE SYSTEM INTERPRETATION Normal sinus rhythm MUSE SYSTEM 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
--- OUTSIDE RECORDS SUMMARY | 2022-05-08 02:22 | XMS_ITS | Encounter Summary ---
:1945 Author Organization [facility] [place] [address] Care Team Providers Name Role Phone Lovely Vicente MD Primary Care Provider Encounter Details Date Type Department Care Team Description 09/03/[address] [facility] Ninfa Clark, [place] [address] Social History Tobacco Use Types Packs/Day [...] help with the discomfort of the change. Supervisor Tubing told the VNA that I would ask [...] Cardiology Zulma Dolan MD [facility] [place], [place] [address] (Wo rk) 05/28/2022 Laboratory Appointment Lab 05/28/2022 Office Visit Cardiology Zulma Dolan MD [facility] [place] [address] Liz Poole PA [facility] [place] [address] 06/10/2022 Office Visit Dermatology Laura Scherer MD [facility] DR [address] [place], [place] [address] (Wo rk) documented as of this encounter Visit Diagnoses Not on filedocumented in this encounter Care Teams Floor Worker Relationship Specialty Start Date End Date Lovely Vicente MD PCP - General 04/16/[address] [place] [address] [address] [facility] 1 [place] [address] documented as of this encounter
--- OUTSIDE RECORDS SUMMARY | 2022-05-08 02:23 | XMS_ITS | Encounter Summary ---
:1945 [place] [address] Care Team Providers Name Role Phone Lovely Vicente MD Primary Care Provider Reason for Visit Auth/Cert Specialty Diagnoses / Procedures Referred By Contact Refer red To Contact Diagnoses Critical lower limb ischemia CELLULITIS RT FOOT Procedures EMERGENCY Referral ID Status Reason Start Date Expiration Date Visits Requ ested Visits Authorized [id number] 1 1 Encounter Details Date Type Department Care Team Description 08/06/2017 - Hospital Encounter 5 Yonathan Oneill lower limb ischemia; 08/16/2017 Su Flores MD Ischemic foot 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 [...] Dorsalis Pedis (Ankle) Artery ?132 ? 0.94 ??[place]-Biphasic ? Posterior Tibial (Ankle) Artery ??154 ? 1.10 ??[place]-Biphasic ? Fourth Toe ? 67 ?0.48 ?? [...] the foot. Discharge Conditions/Prognosis: Good Discharge to: [facility] Rehab Discharge Medications: Your Medications New Medications [...] For any problems or questions please call [phone] ZELDA Smith, political research scientist Nurse Clinician For issues on weeknights after 5pm and weekends please call [phone] and ask for the Vascular Fellow navigation officer. General Instructions None Future Appointments and Orders Future Appointments Provider Department Dept Phone 08/26/2017 4:00 PM Aurelia Rivera PA Vascular Surgery at [place] [phone] 09/07/2017 3:00 PM LAB, THREE L Lab 3L [facility] [phone] 09/07/2017 4:00 PM Luz Prescott MD Endocrinology at [place] [phone] 09/09/2017 8:00 AM Barbra Soares APRN Pain Management at [place] [phone] Please bring a list of your current [...] For any problems or questions please call [phone] ZELDA Smith, political research scientist Nurse Clinician For issues on weeknights after 5pm and weekends please call [phone] and ask for the Vascular Fellow navigation officer. documented in this encounter Medications at [...] [facility] ([facility]) [address] [place] [address] Transportation: with (at bedside) Time of Discharge: by 12 noon Level of Care: swing Patient Aware: yes Family Notified: yes Md to call report to: Yissel Quintero DATA ANALYST already called RN to call report to: [phone] Shirin Wolf Office of Care Management Pager [phone] Shirin Wolf RN - 08/16/2017 10:50 AM EST [facility] has offered pt swing bed. Pt and accept bed. will transport via car. DATA ANALYST Yissel Quintero aware; d/c paperwork will be completed by 12 noon. [facility] requests pt arrival by 1400 today; DATA ANALYST, RN, and family aware. DATA ANALYST called [facility] and was told that they prefer pt to arrive with wound vac dressing applied but clamped. DATA ANALYST applied new wound vac dressing. RN has [facility] number to call report. PASSR completed; DATA ANALYST paged to request provider signature in highlighted space. Indigo from [facility] notified via email that home wound vac now cancelled; STORES has picked up from room and order cancelled. Packet started and provided to community service officer coordinator. Medicare important message explained to patient, patient signed. Copy provided to patient and signature page to OCM for inclusion in pt EMR. Radha Georges - 08/16/2017 10:34 AM EST Office of Care Management/Reed Or Wind Instrument Tuner Patient Name: Gregory Hoang : 1945 Patient has been offered a swing bed at [facility]. The patient will be transported by private transportation. No MD to MD report necessary Please call Nursing Report to [phone], ask for bicycle repairman. Info to accompany patient: Narcotic Prescriptions Copies of Medication Administration Records and IV sheets for past 10 days. Plan: Reed Or Wind Instrument Tuner will be available to the patient and Bull Gang Worker-RN and/or Macaroni Maker for further assistance. Patient will be discharged to: [place] [id number] Radha Powers, Reed Or Wind Instrument Tuner Mira Black, VAMSI - 08/15/2017 10:05 PM EST [address] Flores to ask if he wanted to hold metoprolol dose. BP 95/58. OK to hold this dose Courtney Brito - 08/15/2017 3:26 PM EST Office of Care Management(OCM)/Reed Or Wind Instrument Tuner(RS)/ D/C Planning re : Patient is medically ready for d/c today. RS has been in contact with [facility] to see if they could offer a bed. [facility] is still reviewing the case and need their MD to review chart prior to accepting or declining. OCM team needs to check in with [facility] tomorrow to check on status. 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 Await recommendations from PT. Covering pager #[phone]. 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 Inspector And Adjuster Golf Club Head Kaitlin Saha, RN Pager #[phone] Payam Rosales - 08/13/2017 2:37 PM EST Boiler Coverer Encounter Note Patient Name: Gregory Hoang : [id number] MR#: [id number] Admit Date: 08/06/2017 1:41 PM Hospital Day 7 days Narrative: Visited to introduce and assess acceptance of Boiler Coverer services. Pt was awake, alert, oriented and in chair and family was there. Assessment:Patient coping positively with stresses of illness/hospitalization at this time. Pt says that he is hoping to get better and his family was there. Pt says that he has family care and supportand taking one day at time. Intervention and Outcome: Provided emotional support and encouraging presence. 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 A letter describing our affiliations was reviewed with them and theywere educated about their right to choose where referrals are placed. Patient requests referral to [facility] [employer]. PHONE: [phone] FAX: [phone]. And Home NPWT (Negative Pressure Wound Therapy) aka wound vac device made available to pt. Serial # confirmed. Reviewed [facility] Proof of Delivery/Assignment of Benefits Statement(POD/AOB) Form w patient or authorized agent signing on behalf of patient. Copy of POD/AOB provided to pt and other copy faxed to [employer] @ fax# [phone] Expected date of discharge: 08/12/2017. 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 Heparin gtt continues to run. [...] : 1945 AGE 72 y.o. 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 Vascular resident navigation officer and will forward result to the team prior to rounds. 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 [...] left blue toes with CTA showing R WIRE SPOOLER pseudoaneurysm (now thrombosed) and occluded ATs [...] 2.5x80 5. Completion RLE angiogram 6. L WIRE SPOOLER angiogram 7. 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 - L WIRE SPOOLER angriogram demonstrated: High femoral bifurcation over the proximal half of the femoral head. L WIRE SPOOLER access in the distal L WIRE SPOOLER. - Closure device: Mynx Technical Procedure: [...] for a 45cm 5F Destination. V18 and Randleman and QuickCross catheters were used to select [...] 5F. A stationed picture of the L WIRE SPOOLER was performed as the patient was noted to have a very high bifurcation. Access appeared in the distal R WIRE SPOOLER. Closure and sheath removal was performed [...] PM EST 1440 report called to 5 harris nurse Tessa AGUSTIN documented in this encounter [...] with pt and pt's spouse. Discharge to [facility]. Goal: Individualization & Mutuality Outcome: Outcome (s) [...] sit/sit to supine -- Bed Mobility Goal, Esmeralda Level independent -- Bed Mobility Goal, Date [...] days -- Transfer Training Goal, Activity Type lto-fl-gfhoq/bsfqe-dc-fpd -- Transfer Train Goal, Esmeralda Level conditional independence -- Transfer Train Goal, [...] cabello within reach, Hourly rounding by RN/DIRECTOR PATIENT. Bed alarm / Chair alarm. Patient-specific fall [...] Operative Note Patient Name: Gregory Hoang : [id number] MR#: [id number] Case Date: 08/09/2017 Surgeon: Surgeon(s) and Role: [...] 2.5x80 5. Completion RLE angiogram 6. L WIRE SPOOLER angiogram 7. Mynx closure Precautions/Restrictions: fall, [...] other (see comments) (or swing bed) Pager: [phone] BASSAM ELIAS, PT 08/14/2017 Inpatient Physical Therapy [...] to Achieve by discharge Gait Training Goal, Esmeralda Level conditional independence;set up required Gait Training [...] these facilities over the weekend except for [facility]. CM spoke with [facility] CM Drea Sandhu, VAMSI who said that they do not anticipate any beds over the weekend. Reviewed with patient/ that they need to be aware that patient will need to take the first bed offered at the facilities that they make referrals to. Their choices are: 1- [facility] PHONE: [phone] FAX: [phone] 2- [facility] ([facility]) [address] [place] [address] 3- [facility]) [address] [place] [address] I have discussed Medicare/Private Insurance [...] RS/CM on Wednesday to follow-up. Covering pager #[phone] for today. Plan of Care - Henrique [...] with additional findings of pseudoaneurysm on R WIRE SPOOLER and bilateral anterior tibial artery occlusions. [...] an outpatient once discharged. Have patient call [phone] to set up an appointment. Follow-up: Dermatology will sign-off for now. Please do not hesitate to contact us if you have any questions orconcerns. Impression and Recommendations discussed with primary team on 08/13/2017. Karo Henderson MD Resident in Dermatology Section of Dermatology, Department of Surgery [facility] Pager [phone] Patient seen and evaluated with staff Estimator Printing: Halima Cordero MD Section of Dermatology Mid [...] 2.5x80 5. Completion RLE angiogram 6. L WIRE SPOOLER angiogram 7. Mynx closure Active Non-Hospital [...] home with home health ([facility] PT&OT) Pager: [phone] YASIR TELLO OT 08/12/2017 Occupational Therapy Rehabilitation [...] 2.5x80 5. Completion RLE angiogram 6. L WIRE SPOOLER angiogram 7. Mynx closure Past Medical [...] with 24/7 assistance and maximal services) Pager: [phone] NICHOLAS MORA, PT 08/12/2017 Physical Therapy Rehabilitation [...] sit/sit to supine -- Bed Mobility Goal, Esmeralda Level independent -- Bed Mobility Goal, Outcome Achieved -- goal ongoing Goal: Gait Training Goal Stand Alone Therapy Goal Outcome: Ongoing (Interventions Implemented as Appropriate) 08/11/17 1310 08/12/17 1510 Gait Training Goal Gait Training Goal, Date Established 08/11/17 -- Gait Training Goal, Time to Achieve 5 - 7 days -- Gait Training Goal, Esmeralda Level conditional independence -- Gait Training Goal, [...] days -- Transfer Training Goal, Activity Type bkj-hb-dqgji/ywbon-ic-xbb -- Transfer Train Goal, Esmeralda Level conditional independence -- Transfer Training Goal, [...] Operative Note Patient Name: Gregory Hoang : [id number] MR#: [id number] Case Date: 08/11/2017 Surgeon: Surgeon(s) and Role: [...] 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 Completion RLE angiogram 6. L WIRE SPOOLER angiogram 7. Mynx closure He is [...] Anticipated Discharge Disposition: inpatient rehabilitation facility Pager: [phone] LAWRENCE GONZALEZ, PT 08/11/2017 Physical Therapy Rehabilitation [...] to sit/sit to supine Bed Mobility Goal, Esmeralda Level independent Goal: Gait Training Goal Stand Alone Therapy Goal Outcome: Ongoing (Interventions Implemented as Appropriate) 08/11/17 1310 Gait Training Goal Gait Training Goal, Date Established 08/11/17 Gait Training Goal, Time to Achieve 5 - 7 days Gait Training Goal, Esmeralda Level conditional independence Gait Training Goal, Assist [...] 7 days Transfer Training Goal, Activity Type yxr-po-sjkev/zbmfr-vq-lre Transfer Train Goal, Esmeralda Level conditional independence Plan of [facility] [...] cabello within reach, Hourly rounding by RN/DIRECTOR PATIENT. Bed alarm / Chair alarm. ? Patient-specific [...] Care Planning: on file Kisha Hoang [facility] [phone] Current Coping/Education/Information Needs: pt and spouse state [...] Health/Prescription Coverage: Primary Insurance: MEDICARE Secondary Insurance: [employer] [facility] Prescription Coverage: See above Preferred Pharmacy: [facility] Other: N/A Primary Care Provider: Lovely Vicente MD [phone] Patient/Caregiver Goals of Treatment: Patient plans to return home when medically ready Potential Needs for Transition of Care: Rehab/SNF: N/A Home Health: [facility]. DME: pt has a cane [...] of care planning. Kaitlin Saha RN Pager: [phone] Plan of Care - Melba Jaramillo RN [...] Overview Goal: Plan of Care Review 08/08/17 1974 Coping/Psychosocial Plan Of Care Reviewed With patient [...] cabello within reach, Hourly rounding by RN/DIRECTOR PATIENT. Bed alarm / Chair alarm. Patient-specific fall [...] at bedside and MD TEAM Carrying pager [phone] contacted (via Radio page) and notified of [...] Zulma Dolan MD [facility] [place], [place] [address] (Wo rk) 05/28/2022 Laboratory Appointment Lab 05/28/2022 Office Visit Cardiology Zulma Dolan MD [facility] [place] [address] Liz Poole PA [facility] [place] [address] 06/10/2022 Office Visit Dermatology Laura Scherer MD [facility] [address] [facility] [place], [place] [address] (Wo rk) documented as [...] Glucose 160 65 - 199 [facility] mg/dL [facility] [...] Address City/State/ZIP [place] [address] (ABNORMAL) Differential, Automated (08/16/2017 5:08 AM EST) [facility] Method Time Signature Neutrophils % 73.9 % [facility] LABORATORY Neutr Abs (ANC) 5.37 1.70 - [facility] 6.10 [facility] x10(3)/[facility] LABORATORY Lymphocytes % 10.1 % [facility] LABORATORY Lymphocytes Abs 0.7 (L) 0.9 - 3.2 [facility] x10(3)/[facility] LABORATORY Monocytes % 10.1 % [facility] LABOR[facility]ORY Monocyte Abs 0.7 0.3 - 0.9 [facility] x10(3)/[facility] LABORATORY Eosinophils % 5.1 % [facility] LAB[facility]ORY Eosinophils Abs 0.4 0.0 - 0.4 [facility] x10(3)/[facility] LABORATORY Basophils % 0.4 % [facility] LAB[facility] Basophils Abs 0.0 0.0 - 0.1 [facility] x10(3)/[facility] LABORATORY Immature Gran % 0.40 [...] 0.00 - 0.04 x10(3)/[facility] LABORATORY Specimen Anatomical Collection Method Collection Time Receive d Time (Source) Location / / Volume Laterality Blood specimen 08/16/2017 5:08 AM 018 5:20 (specimen) EST AM EST Resulting Agency Comment Spec In Lab Yonathan Smith MD HEMATOLOGY ORDERABLES Performing Organization Address City/State/[place] [address] (ABNORMAL) Hemogram (08/16/2017 5:08 AM EST) Analysis Performed At Patho logist Time Signature WBC 7.3 4.0 - 9.5 [facility] x10(3)/[facility] LABORATORY RBC 3.36 (L) 4.58 - [facility] 5.54 [facility] x10(6)/[facility] LABORATORY Hemoglobin 9.7 (L) 13.7 - [facility] gm/dL [facility] LABORATORY Hematocrit 30.3 (L) 40.5 - [facility] 48.5 % [facility] LABORATORY MCV 90.2 82.9 - [facility] 93.1 [facility] LABORATORY MCH 28.9 27.5 - [facility] 32.1 pg [facility] LABORATORY MCHC 32.0 32.0 - [facility] 35.7 gm/dL [facility] LABORATORY Platelets 282 145 - 357 [facility] x10(3)/[facility] LABORATORY RDWSD 53.9 (H) 36.0 - [facility] 45.0 [facility] LABORATORY RDWCV 16.5 (H) 11.4 - [facility] SU 13.8 % [facility] LABORATORY MPV 9.0 7.6 - 12.9 [facility] LABORATORY nRBC % Auto 0.0 % [facility] LABORATORY nRBC Abs Auto 0.000 0.000 - [facility] SU 0.000 [facility] x10(3)/[facility] LABORATORY Specimen Anatomical Collection Method Collection Time Receive d Time (Source) Location / / Volume Laterality Blood specimen 08/16/2017 5:08 AM 018 5:20 (specimen) EST AM EST Resulting Agency Comment Spec In Lab Yonathan Smith MD HEMATOLOGY ORDERABLES Performing Organization Address City/State/Z[place] [address] (ABNORMAL) Basic Metabolic Panel (non-fasting) (08/16/2017 5:08 AM EST) P athologist Signature Glucose Lvl 141 65 - 199 [facility] mg/dL [facility] [...] CENTER LABORATORY Estimated GFR 57 (L) >=60 [facility] LABORATORY Comment: The reported eGFR should be multiplied b y 1.2 for patients. The MDRD is not an appropriate measure o f renal function for patients with body mass extremes or in patients with acute kidney failure. http://Buzzoo/DHnkdep http://Buzzoo/DHMCnkf Specimen Anatomical Collection Method Collection Time Receive d Time (Source) Location / / Volume Laterality Blood specimen 08/16/2017 5:08 AM 018 5:20 (specimen) EST AM EST Resulting Agency Comment Spec In Lab Yonathan Smith MD CHEMISTRY ORDERABLES Performing Organization Address City/State/[place] [address] (ABNORMAL) Prothrombin Time (08/16/2017 [...] Address City/State/ZIP Code Phon e Number [address] POCT Glucose (08/16/2017 4:09 AM EST) athologist Signature POC Glucose 147 65 - 199 [facility] mg/dL [facility] LABORATORY [...] Organization Address City/State/[place] [address] POCT Glucose (08/15/2017 11:56 PM EST) athologist Signature POC Glucose 176 65 - 199 [facility] SU mg/dL [facility] [...] Organization Address City/State/[place] [address] POCT Glucose (08/15/2017 8:05 PM EST) athologist Signature POC Glucose 136 65 - 199 [facility] mg/dL [facility] [...] Organization Address City/State/[place] [address] (ABNORMAL) POCT Glucose (08/15/2017 4:50 PM EST) athologist Signature POC Glucose 232 (H) 65 - 199 [facility] SU mg/dL [facility] [...] Organization Address City/State/[place] [address] POCT Glucose (08/15/2017 12:04 PM EST) athologist Signature POC Glucose 135 65 - 199 [facility] SU mg/dL [facility] [...] Organization Address City/State/[place] [address] POCT Glucose (08/15/2017 7:36 AM EST) P athologist Signature POC Glucose 124 65 - 199 [facility] mg/dL [facility] [...] Address City/State/Z[place] [address] (ABNORMAL) Differential, Automated (08/15/2017 6:22 AM EST) Patholo gist Method Time Signature Neutrophils % 76.1 % [facility] LABORATORY Neutr Abs (ANC) 6.62 (H) 1.70 - [facility] 6.10 [facility] x10(3)/[facility] L LABORATORY Lymphocytes % 9.3 % [facility] LABORATORY Lymphocytes Abs 0.8 (L) 0.9 - 3.2 [facility] x10(3)/[facility] LABORATORY Monocytes % 9.4 % [facility] LABORATORY Monocyte Abs 0.8 0.3 - 0.9 [facility] x10(3)/[facility] LABORATORY Eosinophils % 4.0 % [facility] LABORATORY Eosinophils Abs 0.4 0.0 - 0.4 [facility] x10(3)/[facility] LABORATORY Basophils % 0.6 % [facility] LABORATORY Basophils Abs 0.0 0.0 - 0.1 [facility] x10(3)/[facility] LABORATORY Immature Gran % 0.60 % [...] Address City/State/Z[place] [address] (ABNORMAL) Hemogram (08/15/2017 6:22 AM EST) Analysis Performed At Patho logist Time Signature WBC 8.7 4.0 - 9.5 [facility] x10(3)/[facility] LABORATORY RBC 3.21 (L) 4.58 - [facility] 5.54 [facility] x10(6)/[facility] LABORATORY Hemoglobin 9.1 (L) 13.7 - [facility] [facility] gm/dL [facility] LABORATORY Hematocrit 29.0 (L) 40.5 - [facility] 48.5 % [facility] MCV 90.3 82.9 - [facility]1 [facility] LABORATORY MCH 28.3 27.5 - [facility] 32.1 pg [facility]ORY MCHC 31.4 (L) 32.0 - [facility] 35.7 gm/dL [facility] LABORATORY Platelets 254 145 - 357 [facility] x10(3)/[facility] LABORATORY RDWSD 53.9 (H) 36.0 - [facility] SU 45.0 [facility] LABORATORY RDWCV 16.3 (H) 11.4 - [facility] SU 13.8 % [facility] LABORATORY MPV 8.8 7.6 - 12.9 [facility] LABORATORY nRBC % Auto 0.0 % [facility] LABORATORY nRBC Abs Auto 0.000 0.000 - [facility] SU 0.000 [facility] x10(3)/[facility] LABORATORY Specimen Anatomical Collection Method Collection Time Receive d Time (Source) Location / / Volume Laterality Blood specimen 08/15/2017 6:22 AM 018 6:33 (specimen) EST AM EST Resulting Agency Comment Spec In Lab Yonathan Smith MD HEMATOLOGY ORDERABLES Performing Organization Address City/[facility]/ZIP [place] [address] (ABNORMAL) Basic Metabolic Panel (non-fasting) (08/15/2017 6:22 AM EST) athologist Signature Glucose Lvl 118 65 - 199 [facility] mg/dL [facility] [...] or in patients with acute kidney failure. [email or web address] Specimen Anatomical Collection Method Collection Time Receive d Time (Source) Location / / Volume Laterality Blood specimen 08/15/2017 6:22 AM 018 6:33 (specimen) EST AM EST Resulting Agency Comment Spec In Lab Yonathan Smith MD CHEMISTRY ORDERABLES Performing Organization Address City/[facility]/[place] [address] (ABNORMAL) Prothrombin Time (08/15/2017 [...] Organization Address City/State/[place] [address] POCT Glucose (08/15/2017 4:33 AM EST) athologist Signature POC Glucose 164 65 - 199 [facility] mg/dL [facility] Organization Address City/State/[place] [address] POCT Glucose (08/15/2017 12:12 AM EST) athologist Signature POC Glucose 89 65 - 199 [facility] mg/dL [facility] Organization Address City/State/[place] [address] (ABNORMAL) POCT Glucose (08/14/2017 [...] Organization Address City/State/[place] [address] POCT Glucose (08/14/2017 5:11 PM EST) athologist Signature POC Glucose 174 65 - 199 [place] [facility] mg/dL [facility] [...] Organization Address City/State/[place] [address] POCT Glucose (08/14/2017 12:10 PM EST) athologist Signature POC Glucose 141 65 - 199 [place] [facility] mg/dL [facility] [...] Address City/State/ZIP Code Phon e Number [address] POCT Glucose (08/14/2017 8:07 AM EST) P athologist Signature POC Glucose 158 65 - 199 [facility] mg/dL [facility] [...] Organization Address City/State/[place] [address] (ABNORMAL) Differential, Automated (08/14/2017 4:52 AM EST) Patholo gist Method Time Signature Neutrophils % 78.6 % [facility] LABORATORY Neutr Abs (ANC) 7.70 (H) 1.70 - [facility] 6.10 [facility] x10(3)/[facility] LABORATORY Lymphocytes % 7.8 % [facility] LABORATORY Lymphocytes Abs 0.8 (L) 0.9 - 3.2 [facility] x10(3)/[facility] LABORATORY Monocytes % 8.8 % [facility] LABORATORY Monocyte Abs 0.9 0.3 - 0.9 [facility] x10(3)/[facility] LABORATORY Eosinophils % 4.0 % [facility] LABORATORY Eosinophils Abs 0.4 0.0 - 0.4 [facility] x10(3)/[facility] LABORATORY Basophils % 0.5 % [facility] LABORATORY Basophils Abs 0.0 0.0 - 0.1 [facility] x10(3)/[facility] LABORATORY Immature Gran % 0.30 % [...] x10(3)/[facility] LABORATORY Specimen Anatomical Collection Method Collection Time Receive d Time (Source) Location / / Volume Laterality Blood specimen 08/14/2017 4:52 AM 018 5:08 (specimen) EST AM EST Resulting Agency Comment Spec In Lab Yonathan Smith MD HEMATOLOGY ORDERABLES Performing Organization Address City/State/ZIP [place] [address] (ABNORMAL) Hemogram (08/14/2017 4:52 AM EST) Analysis Performed At Patho logist Time Signature WBC 9.8 (H) 4.0 - 9.5 [facility] x10(3)/[facility] LABORATORY RBC 3.32 (L) 4.58 - [facility] 5.54 [facility] x10(6)/[facility] LABORATORY Hemoglobin 9.5 (L) 13.7 - [facility] 16.[facility] gm/dL [facility] LABORATORY Hematocrit 30.3 (L) 40.5 - [facility] SU 48.5 % [facility] LABORATORY MCV 91.3 82.9 - [facility] SU 93.1 [facility] LABORATORY MCH 28.6 27.5 - [place] [facility] 32.1 pg [facility] LABORATORY MCHC 31.4 (L) 32.0 - [facility] SU 35.7 gm/dL [facility] LABORATORY Platelets 263 145 - 357 [facility] x[facility](3)/[facility] LABORATORY RDWSD 54.8 (H) 36.0 - [facility] SU 45.0 [facility] RDWCV 16.5 (H) 11.4 - [facility] SU 13.8 % [facility] LABORATORY MPV 9.1 7.6 - 12.9 [facility] LABORATORY nRBC % Auto 0.0 % [facility] LABORATORY nRBC Abs Auto 0.000 0.000 - [facility] 0.000 [facility] x10(3)/[facility] LABORATORY Specimen Anatomical Collection Method Collection Time Receive d Time (Source) Location / / Volume Laterality Blood specimen 08/14/2017 4:52 AM 018 5:08 (specimen) EST AM EST Resulting Agency Comment Spec In Lab Yonathan Smith MD HEMATOLOGY ORDERABLES Performing Organization Address City/[facility]/ZIP [place] [address] (ABNORMAL) Prothrombin Time (08/14/2017 [...] Address City/State/[place] [address] (ABNORMAL) Basic Metabolic Panel (non-fasting) (08/14/2017 4:52 AM EST) athologist Signature Glucose Lvl 135 65 - 199 [facility] mg/dL [facility] [...] CENTER LABORATORY Estimated GFR 52 (L) >=60 [facility] LABORATORY Comment: The reported eGFR should be multiplied b y 1.2 for patients. The MDRD is not an appropriate measure o f renal function for patients with body mass extremes or in patients with acute kidney failure. [email or web address] Specimen Anatomical Collection Method Collection Time Receive d Time (Source) Location / / Volume Laterality Blood specimen 08/14/2017 4:52 AM 018 5:08 (specimen) EST AM EST Resulting Agency Comment Spec In Lab Yonathan mSith MD CHEMISTRY ORDERABLES Performing Organization Address City/State/ZIP [place] [address] POCT Glucose (08/14/2017 3:56 AM EST) P athologist Signature POC Glucose 135 65 - 199 [facility] mg/dL [facility] [...] Organization Address City/State/ZIP Code [place] [address] POCT Glucose (08/13/2017 11:13 PM EST) athologist Signature POC Glucose 118 65 - 199 [place] [facility] mg/dL [facility] LABORATORY [...] [facility]/ZIP Code [place] [address] (ABNORMAL) POCT Glucose (08/13/2017 [...] [facility]/ZIP Code Ph[place] [address] POCT Glucose (08/13/2017 4:02 PM EST) athologist Signature POC Glucose 145 65 - 199 [place] mg/dL [facility] LABORATORY [...] Organization Address City/State/[place] [address] POCT Glucose (08/13/2017 11:31 AM EST) P athologist Signature POC Glucose 179 65 - 199 [facility]/dL [facility] [...] City/[facility]/[place] [address] (ABNORMAL) POCT Glucose (08/13/2017 10:16 AM EST) athologist Signature POC Glucose 211 (H) 65 - 199 [facility] mg/dL [facility] [...] City/[facility]/ZIP Code Phon e Number [address] JULIAN, legs, multiple levels (08/13/2017 7:42 AM EST) Component Value Ref Test Analysis Performed At Patholo gist Range Method Time Signature VB Text Department: Vascular Surgery Lab VASCUBASE Report Patient: [id number] (GREGORY HOANG) CPT: 61671 ICD10: I99.8 Referring Physician: YONATHAN SMITH ?? Indications: s/p R 1,2,3 toe amps with red left foot, need n ew baseline Diabetes mellitus: yes ICD10 Diagnosis Code: I99.8 Findings: Right ?Pressure (mm Hg) ?? JULIAN ??Waveform ?TBI ?? Brachial Artery ?138 ? Dorsalis Pedis (Ankle) Arter y ?132 ? 0.94 ??[place]- Biphasic ? Posterior Tibial (Ankle) Art anila ??154 ? 1.10 ??[place]-Biphasic ? Fourth Toe ? 67 ? 0.48 [...] 156 65 - 199 [place] [facility] mg/dL [facility] LABORATORY [...] Organization Address City/State/[place] [address] (ABNORMAL) Differential, Automated (08/13/2017 5:33 AM EST) [facility] Method Time Signature Neutrophils % 77.8 % [facility] LABORATORY Neutr Abs (ANC) 7.83 (H) 1.70 - [facility] 6.10 [facility] x10(3)/[facility] L LABORATORY Lymphocytes % 8.4 % [facility] LABORATORY Lymphocytes Abs 0.8 (L) 0.9 - 3.2 [facility] x10(3)/[facility] LABORATORY Monocytes % 8.3 % [facility] LABORATORY Monocyte Abs 0.8 0.3 - 0.9 [facility] x10(3)/[facility] LABORATORY Eosinophils % 4.6 % [facility] LABORATORY Eosinophils Abs 0.5 (H) 0.0 - 0.4 [facility] x10(3)/[facility] LABORATORY Basophils % 0.5 % [facility] LABORATORY Basophils Abs 0.0 0.0 - 0.1 [facility] x10(3)/[facility] LABORATORY [...] Address City/State/ZIP Code Phon e Number [address] (ABNORMAL) Hemogram (08/13/2017 5:33 AM EST) Analysis Performed At Patho logist Time Signature WBC 10.1 (H) 4.0 - 9.5 [facility] x10(3)/[facility] LABORATORY RBC 3.21 (L) 4.58 - [facility] 5.54 [facility] x10(6)/[facility] LABORATORY Hemoglobin 9.2 (L) 13.7 - [facility] 16.5 gm/dL [facility] LABORATORY Hematocrit 29.6 (L) 40.5 - [facility] 48.5 % [facility] LABORATORY MCV 92.2 82.9 - [facility] 93.1 [facility] LABORATORY MCH 28.7 27.5 - [facility] 32.1 pg [facility] LABORATORY MCHC 31.1 (L) 32.0 - [facility] 35.7 gm/dL [facility] LABORATORY Platelets 263 145 - 357 [facility] x10(3)/[facility] LABORATORY RDWSD 54.8 (H) 36.0 - [facility] 45.0 [facility] LABORATORY RDWCV 16.4 (H) 11.4 - [facility] 13.8 % [facility] LABORATORY MPV 9.2 7.6 - 12.9 [facility] LABORATORY nRBC % Auto 0.0 % [facility] LABORATORY nRBC Abs Auto 0.000 0.000 - [facility] 0.000 [facility] x10(3)/[facility] LABORATORY Specimen Anatomical Collection Method Collection Time Receive d Time (Source) Location / / Volume Laterality Blood specimen 08/13/2017 5:33 AM 018 6:04 (specimen) EST AM EST Resulting Agency Comment Spec In Lab Yonathan Smith MD HEMATOLOGY ORDERABLES Performing Organization Address City/State/[place] [address] (ABNORMAL) Prothrombin Time (08/13/2017 [...] Organization Address City/State/ZIP Code Phon e Number [place] [id number] [address] (ABNORMAL) Basic Metabolic Panel (non-fasting) (08/13/2017 5:33 AM EST) athologist Signature Glucose Lvl 126 65 - 199 [facility] mg/dL [facility] [...] or in patients with acute kidney failure. [email or web address] Specimen Anatomical Collection Method Collection Time Receive d Time (Source) Location / / Volume Laterality Blood specimen 08/13/2017 5:33 AM 018 6:04 (specimen) EST AM EST Resulting Agency Comment Spec In Lab Yonathan Smith MD CHEMISTRY ORDERABLES Performing Organization Address City/[facility]/ZIP [facility] Phon e Number [address] POCT Glucose (08/13/2017 4:29 AM EST) athologist Signature POC Glucose 111 65 - 199 [facility]/dL [facility] [...] City/[facility]/ZIP Code Phon e Number [address] POCT Glucose (08/12/2017 11:28 PM EST) athologist Signature POC Glucose 164 65 - 199 [facility] LABORATORY [...] City/[facility]/[place] [address] (ABNORMAL) POCT Glucose (08/12/2017 7:40 PM EST) athologist Signature POC Glucose 209 (H) 65 - 199 [facility] mg/dL [facility] [...] Address City/State/ZIP Code Phon e Number [address] POCT Glucose (08/12/2017 4:24 PM EST) athologist Signature POC Glucose 161 65 - 199 [facility]dL [facility] LABORATORY [...] Organization Address City/State/[place] [address] POCT Glucose (08/12/2017 12:00 PM EST) athologist Signature POC Glucose 167 65 - 199 [place] [facility] mg/dL [facility] [...] Organization Address City/State/[place] [address] POCT Glucose (08/12/2017 7:25 AM EST) P athologist Signature POC Glucose 152 65 - 199 [facility] mg/dL [facility] [...] Address City/State/ZIP [place] [address] (ABNORMAL) Differential, Automated (08/12/2017 6:29 AM EST) Patholo gist Method Time Signature Neutrophils % 78.7 % [facility] LABORATORY Neutr Abs (ANC) 7.94 (H) 1.70 - [facility] 6.10 [facility] x10(3)/[facility] LABORATORY Lymphocytes % 8.8 % [facility] LABORATORY Lymphocytes Abs 0.9 0.9 - 3.2 [facility] x10(3)/[facility] LABORATORY Monocytes % 7.8 % [facility] LABORATORY Monocyte Abs 0.8 0.3 - 0.9 [facility] x10(3)/[facility] LABORATORY Eosinophils % 3.9 % [facility] LABORATORY Eosinophils Abs 0.4 0.0 - 0.4 [facility] x10(3)/[facility] LABORATORY Basophils % 0.3 % [facility] LABORATORY Basophils Abs 0.0 0.0 - 0.1 [facility] x10(3)/[facility] LABORATORY Immature Gran % 0.50 % [...] Address City/State/Z[place] [address] (ABNORMAL) Hemogram (08/12/2017 6:29 AM EST) Analysis Performed At Patho logist Time Signature WBC 10.1 (H) 4.0 - 9.5 [facility] x10(3)/[facility] LABORATORY RBC 3.02 (L) 4.58 - [facility] 5.54 [facility] x10(6)/[facility] LABORATORY Hemoglobin 8.7 (L) 13.7 - [facility] 16.5 gm/dL [facility] LABORATORY Hematocrit 28.1 (L) 40.5 - [facility] 48.5 % [facility] LABORATORY MCV 93.0 82.9 - [facility] 93.1 [facility] LABORATORY MCH 28.8 27.5 - [facility] 32.1 pg [facility] LABORATORY MCHC 31.0 (L) 32.0 - [facility] 35.7 gm/dL [facility] LABORATORY Platelets 223 145 - 357 [facility] x10(3)/[facility] LABORATORY RDWSD 56.1 (H) 36.0 - [facility] 45.0 [facility] LABORATORY RDWCV 16.4 (H) 11.4 - [facility] 13.8 % [facility] LABORATORY MPV 9.0 7.6 - 12.9 [facility] LABORATORY nRBC % Auto 0.0 % [facility] LABORATORY nRBC Abs Auto 0.000 0.000 - [facility] 0.000 [facility] x10(3)/[facility] LABORATORY Specimen Anatomical Collection Method Collection Time Receive d Time (Source) Location / / Volume Laterality Blood specimen 08/12/2017 6:29 AM 018 6:38 (specimen) EST AM EST Resulting Agency Comment Spec In Lab Yonathan Smith MD HEMATOLOGY ORDERABLES Performing Organization Address City/[facility]/[place] [address] (ABNORMAL) Prothrombin Time (08/12/2017 [...] City/[facility]/[place] [address] (ABNORMAL) Basic Metabolic Panel (non-fasting) (08/12/2017 6:29 AM EST) athologist Signature Glucose Lvl 151 65 - 199 [facility] mg/dL [facility] [...] or in patients with acute kidney failure. [email or web address] Specimen Anatomical Collection Method Collection Time Receive d Time (Source) Location / / Volume Laterality Blood specimen 08/12/2017 6:29 AM 018 6:38 (specimen) EST AM EST Resulting Agency Comment Spec In Lab Yonathan Smith MD CHEMISTRY ORDERABLES Performing Organization Address City/[facility]/ZIP Code Phon e Number [address] POCT Glucose (08/12/2017 4:08 AM EST) athologist Signature POC Glucose 181 65 - 199 [facility] mg[facility]dL [facility] [...] City/[facility]/[place] [address] (ABNORMAL) POCT Glucose (08/12/2017 12:17 AM EST) athologist Signature POC Glucose 221 (H) 65 - 199 [facility]/dL [facility] [...] Organization Address City/State/[place] [address] (ABNORMAL) POCT Glucose (08/11/2017 [...] City/[facility]/[place] [address] POCT Glucose (08/11/2017 5:59 PM EST) athologist Signature POC Glucose 169 65 - 199 [place] [facility] mg/dL [facility] [...] Organization Address City/State/[place] [address] (ABNORMAL) POCT Glucose (08/11/2017 [...] Address City/State/ZIP Code Phon e Number [address] POCT Glucose (08/11/2017 12:04 PM EST) athologist Signature POC Glucose 182 65 - 199 [facility] LABORATORY [...] City/[facility]/Z[place] [address] POCT Glucose (08/11/2017 7:31 AM EST) athologist Signature POC Glucose 156 65 - 199 [facility] LABORATORY [...] Address City/State/ZIP Code Phon e Number [address] (ABNORMAL) Differential, Automated (08/11/2017 6:16 AM EST) [facility] gist Method Time Signature Neutrophils % 83.7 % [facility] LABORATORY Neutr Abs (ANC) 10.76 (H) 1.70 - [facility] 6.10 [facility] x10(3)/[facility] LABORATORY Lymphocytes % 6.0 % [facility] LABORATORY Lymphocytes Abs 0.8 (L) 0.9 - 3.2 [facility] x10(3)/[facility] LABORATORY Monocytes % 7.5 % [facility] LABORATORY Monocyte Abs 1.0 (H) 0.3 - 0.9 [facility] x10(3)/[facility] LABORATORY Eosinophils % 2.0 % [facility] LABORATORY Eosinophils Abs 0.3 0.0 - 0.4 [facility] x10(3)/[facility] LABORATORY Basophils % 0.3 % [facility] LABORATORY Basophils Abs 0.0 0.0 - 0.1 [facility] x10(3)/[facility] LABORATORY Immature Gran % 0.50 % [...] Address City/State/Z[place] [address] (ABNORMAL) Hemogram (08/11/2017 6:16 AM EST) Analysis Performed At Patho logist Time Signature WBC 12.9 (H) 4.0 - 9.5 [facility] x10(3)/[facility] LABORATORY RBC 3.28 (L) 4.58 - [facility] 5.54 [facility] x10(6)/[facility] LABORATORY Hemoglobin 9.5 (L) 13.7 - [facility] 16.5 gm/dL [facility] LABORATORY Hematocrit 29.8 (L) 40.5 - [place] 48.5 % [facility] LABORATORY MCV 90.9 82.9 - [facility] 93.1 [facility] LABORATORY MCH 29.0 27.5 - [place] [facility] 32.1 [facility] LABORATORY MCHC 31.9 (L) 32.0 - [place] [facility] 35.7 gm/dL [facility] Platelets 236 145 - 357 [facility] x10(3)/[facility] LABORATORY RDWSD 53.5 (H) 36.0 - [place] 45.0 [facility] LABORATORY RDWCV 16.3 (H) 11.4 - [facility] 13.8 % [facility] LABORATORY MPV 8.8 7.6 - 12.9 [facility] nRBC % Auto 0.0 % [facility] nRBC Abs Auto 0.000 0.000 - [facility] 0.000 [facility] x10(3)/[facility] LABORATORY Specimen Anatomical Collection Method Collection Time Receive d Time (Source) Location / / Volume Laterality Blood specimen 08/11/2017 6:16 AM 018 6:24 (specimen) EST AM EST Resulting Agency Comment Spec In Lab Yonathan Smith MD HEMATOLOGY ORDERABLES Performing Organization Address City/State/ZIP Code Phon e Number [place] [phone] HOSPITAL LABORATORY Drive (ABNORMAL) Prothrombin Time (08/11/2017 [...] Address City/State/[place] [address] Basic Metabolic Panel (non-fasting) (08/11/2017 6:16 AM EST) P athologist Signature Glucose Lvl 139 65 - 199 [facility] mg/dL [facility] [...] or in patients with acute kidney failure. [email or web address] Specimen Anatomical Collection Method Collection Time Receive d Time (Source) Location / / Volume Laterality Blood specimen 08/11/2017 6:16 AM 018 6:24 (specimen) EST AM EST Resulting Agency Comment Spec In Lab Yonathan Smith MD CHEMISTRY ORDERABLES Performing Organization Address City/State/ZIP Code Phon e Number [address] POCT Glucose (08/11/2017 4:07 AM EST) athologist Signature POC Glucose 162 65 - 199 [place] mg/dL [facility] LABORATORY [...] [facility]/ZIP Code Phon e Number [place] [address] POCT Glucose (08/10/2017 11:59 PM EST) athologist Signature POC Glucose 166 65 - 199 [place] mg/dL [facility] LABORATORY [...] [facility]/ZIP Code Phon e Number [place] DAV[place] [address] POCT Glucose (08/10/2017 8:12 PM EST) athologist Signature POC Glucose 156 65 - 199 [place] mg/dL [facility] [...] Organization Address City/State/[place] [address] (ABNORMAL) POCT Glucose (08/10/2017 4:42 PM EST) P athologist Signature POC Glucose 211 (H) 65 - 199 [facility]/dL [facility] [...] Address City/State/ZIP Code Phon e Number [address] (ABNORMAL) Differential, Automated (08/10/2017 2:30 PM EST) Patholo gist Method Time Signature Neutrophils % 87.6 % [facility] LABORATORY Neutr Abs (ANC) 9.90 (H) 1.70 - [facility] 6.10 [facility] x10(3)/[facility] L LABORATORY Lymphocytes % 4.3 % [facility] LABORATORY Lymphocytes Abs 0.5 (L) 0.9 - 3.2 [facility] x10(3)/[facility] LABORATORY Monocytes % 6.0 % [facility] LABORATORY Monocyte Abs 0.7 0.3 - 0.9 [facility] x10(3)/[facility] LABORATORY Eosinophils % 1.1 % [facility] LABORATORY Eosinophils Abs 0.1 0.0 - 0.4 [facility] x10(3)/[facility] LABORATORY Basophils % 0.4 % [facility] LABORATORY Basophils Abs 0.0 0.0 - 0.1 [facility] x10(3)/[facility] LABORATORY Immature Gran % 0.60 % [...] Address City/State/Z[place] [address] (ABNORMAL) Hemogram (08/10/2017 2:30 PM EST) Analysis Performed At Patho logist Time Signature WBC 11.3 (H) 4.0 - 9.5 [facility] x10(3)/[facility] LABORATORY RBC 3.13 (L) 4.58 - [facility] SU 5.54 [facility] x10(6)/[facility] LABORATORY Hemoglobin 8.9 (L) 13.7 - [facility] 16.5 gm/dL [facility] LABORATORY Hematocrit 28.4 (L) 40.5 - [facility] 48.5 % [facility] LABORATORY MCV 90.7 82.9 - [facility] 93.1 [facility] LABORATORY MCH 28.4 27.5 - [facility] SU 32.1 pg [facility] LABORATORY MCHC 31.3 (L) 32.0 - [facility] 35.7 gm/dL [facility] LABORATORY Platelets 213 145 - 357 [facility] x10(3)/[facility] LABORATORY RDWSD 53.7 (H) 36.0 - [facility] SU 45.0 [facility] LABORATORY RDWCV 16.4 (H) 11.4 - [facility] SU 13.8 % [facility] LABORATORY MPV 8.9 7.6 - 12.9 [facility] LABORATORY nRBC % Auto 0.0 % [facility] LABORATORY nRBC Abs Auto 0.000 0.000 - [facility] SU 0.000 [facility] x10(3)/[facility] LABORATORY Specimen Anatomical Collection Method Collection Time Receive d Time (Source) Location / / Volume Laterality Blood specimen 08/10/2017 2:30 PM 018 2:48 (specimen) EST PM EST Resulting Agency Comment Spec In Lab Yonathan Smith MD HEMATOLOGY ORDERABLES Performing Organization Address City/State/[place] [address] (ABNORMAL) POCT Glucose (08/10/2017 1:50 PM EST) athologist Signature POC Glucose 243 (H) 65 - 199 [facility] LABORATORY [...] City/[facility]/[place] [address] POCT Glucose (08/10/2017 11:21 AM EST) athologist Signature POC Glucose 156 65 - 199 [facility]/dL [facility] LABORATORY [...] Organization Address City/State/[place] [address] (ABNORMAL) Differential, Automated (08/10/2017 10:28 AM EST) [facility] gist Method Time Signature Neutrophils % 85.3 % [facility] LABORATORY Neutr Abs (ANC) 9.43 (H) 1.70 - [facility] SU 6.10 [facility] x10(3)/[facility] L LABORATORY Lymphocytes % 5.5 % [facility] LABORATORY Lymphocytes Abs 0.6 (L) 0.9 - 3.2 [facility] x10(3)/[facility] LABORATORY Monocytes % 5.9 % [facility] LABORATORY Monocyte Abs 0.6 0.3 - 0.9 [facility] x10(3)/[facility] LABORATORY Eosinophils % 2.1 % [facility] LABORATORY Eosinophils Abs 0.2 0.0 - 0.4 [facility] x10(3)/[facility] LABORATORY Basophils % 0.4 % [facility] LABORATORY Basophils Abs 0.0 0.0 - 0.1 [facility] x10(3)/[facility] LABORATORY Immature Gran % 0.80 % [...] Abs 0.09 (H) 0.00 - 0.04 x10(3)/[facility] LABORATORY Specimen Anatomical Collection Method Collection Time Receive d Time (Source) Location / / Volume Laterality Blood specimen 08/10/2017 10:28 8 (specimen) AM EST 10:35 AM EST Resulting Agency Comment Spec In Lab Yonathan Smith MD HEMATOLOGY ORDERABLES Performing Organization Address City/State/Z[place] [address] (ABNORMAL) Hemogram (08/10/2017 10:28 AM EST) Analysis Performed At Patho logist Time Signature WBC 11.0 (H) 4.0 - 9.5 [facility] x10(3)/[facility] LABORATORY RBC 3.02 (L) 4.58 - [facility] 5.54 [facility] x10(6)/[facility] LABORATORY Hemoglobin 8.8 (L) 13.7 - [facility] 16.5 gm/dL [facility] LABORATORY Hematocrit 28.1 (L) 40.5 - [place] DAVIS 48.5 % [facility] LABORATORY MCV 93.0 82.9 - [facility] 93.1 [facility] LABORATORY MCH 29.1 27.5 - [place] OLIVASCK 32.1 pg [facility] LABORATORY MCHC 31.3 (L) 32.0 - [place] DAVIS 35.7 gm/dL [facility] LABORATORY Platelets 207 145 - 357 [place] x10(3)/[facility] LABORATORY RDWSD 55.3 (H) 36.0 - [place] OLIV[place]CK 45.0 [facility] LABORATORY RDWCV 16.4 (H) 11.4 - [place] SU 13.8 % [facility] LABORATORY MPV 9.0 7.6 - 12.9 [facility] LABORATORY nRBC % Auto 0.0 % [facility] LABORATORY nRBC Abs Auto 0.000 0.000 - [place] 0.000 [facility] x10(3)/[facility] LABORATORY Specimen Anatomical Collection Method Collection Time Receive d Time (Source) Location / / Volume Laterality Blood specimen 08/10/2017 10:28 8 (specimen) AM EST 10:35 AM EST Resulting Agency Comment Spec In Lab Yonathan Smith MD HEMATOLOGY ORDERABLES Performing Organization Address City/State/ZIP Code Phon e Number [place] [phone] HOSPITAL LABORATORY Drive VS Angiogram/intervention (vascular) (08/10/2017 [...] 2.5x80 5. Completion RLE angiogram 6. L WIRE SPOOLER angiogram 7. 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 - L WIRE SPOOLER angriogram demonstrated: High fe moral bifurcation over the proximal half of the femoral head. L WIRE SPOOLER access in the distal L WIRE SPOOLER. - Closure device: Mynx Technical Procedure: [...] for a 45cm 5F Destination. V18 and Randleman a nd QuickCross catheters were used to [...] bifurcation. Access appeared in the distal R WIRE SPOOLER. Closure and sheath removal was performed [...] 2.5x80 5. Completion RLE angiogram 6. L WIRE SPOOLER angiogram 7. 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 - L WIRE SPOOLER angriogram demonstrated: High fe moral bifurcation over the proximal half of the femoral head. L WIRE SPOOLER access in the distal L WIRE SPOOLER. - Closure device: Mynx Technical Procedure: [...] for a 45cm 5F Destination. V18 and Randleman a nd QuickCross catheters were used to [...] bifurcation. Access appeared in the distal R WIRE SPOOLER. Closure and sheath removal was performed [...] (ABNORMAL) Differential, Automated (08/10/2017 5:50 AM EST) [facility] Method Time Signature Neutrophils % 80.1 % [facility] LABORATORY Neutr Abs (ANC) 9.01 (H) 1.70 - [facility] 6.10 [facility] x10(3)/[facility] LABORATORY Lymphocytes % 8.8 % [facility] LABORATORY Lymphocytes Abs 1.0 0.9 - 3.2 [facility] x[facility](3[facility] LABORATORY Monocytes % 8.3 % [facility] LABORATORY Monocyte Abs 0.9 0.3 - 0.9 [facility] x[facility](3[facility] LABORATORY Eosinophils % 2.0 % [facility] LABORATORY Eosinophils Abs 0.2 0.0 - 0.4 [facility] x10(3)/[facility] LABORATORY Basophils % 0.4 % [facility] LABORATORY Basophils Abs 0.0 0.0 - 0.1 [facility] x10(3)/[facility] LABORATORY [...] Address City/State/Z[place] [address] (ABNORMAL) Hemogram (08/10/2017 5:50 AM EST) Analysis Performed At Patho logist Time Signature WBC 11.3 (H) 4.0 - 9.5 [facility] x10(3)/[facility] LABORATORY RBC 3.15 (L) 4.58 - [facility] 5.54 [facility] x10(6)/[facility] LABORATORY Hemoglobin 8.9 (L) 13.7 - [facility] 16.5 gm/dL [facility] LABORATORY Hematocrit 29.0 (L) 40.5 - [facility] 48.5 % [facility] LABORATORY MCV 92.1 82.9 - [facility] 93.1 [facility] LABORATORY MCH 28.3 27.5 - [place] 32.1 pg [facility] LABORATORY MCHC 30.7 (L) 32.0 - [facility] 35.7 gm/dL [facility] LABORATORY Platelets 231 145 - 357 [facility] x10(3)/[facility] LABORATORY RDWSD 53.9 (H) 36.0 - [place] SU 45.0 [facility] LABORATORY RDWCV 16.2 (H) 11.4 - [facility] SU 13.8 % [facility] LABORATORY MPV 8.7 7.6 - 12.9 [facility] LABORATORY nRBC % Auto 0.0 % [facility] LABORATORY nRBC Abs Auto 0.000 0.000 - [facility] 0.000 [facility] x10(3)/[facility] LABORATORY Specimen Anatomical Collection Method Collection Time Receive d Time (Source) Location / / Volume Laterality Blood specimen 08/10/2017 5:50 AM 018 5:59 (specimen) EST AM EST Resulting Agency Comment Spec In Lab Yonathan Smith MD HEMATOLOGY ORDERABLES Performing Organization Address City/State/Z[place] [address] (ABNORMAL) Basic Metabolic Panel (non-fasting) (08/10/2017 5:50 AM EST) P athologist Signature Glucose Lvl 135 65 - 199 [facility] mg/dL [facility] [...] or in patients with acute kidney failure. [email or web address] Specimen Anatomical Collection Method Collection Time Receive d Time (Source) Location / / Volume Laterality Blood specimen 08/10/2017 5:50 AM 018 5:59 (specimen) EST AM EST Resulting Agency Comment Spec In Lab Yonathan Smith MD CHEMISTRY ORDERABLES Performing Organization Address [facility] [place] [address] (ABNORMAL) Prothrombin Time (08/10/2017 [...] HEMATOLOGY ORDERABLES Performing Organization Address City/[facility] [place] [address] (ABNORMAL) POCT Glucose (08/10/2017 4:01 AM EST) athologist Signature POC Glucose 206 (H) 65 - 199 [facility] mg/dL [facility] [...] Organization Address City/State/[place] [address] POCT Glucose (08/10/2017 2:01 AM EST) athologist Signature POC Glucose 188 65 - 199 [place] [facility] mg/dL [facility] [...] City/[facility]/[place] [address] (ABNORMAL) POCT Glucose (08/09/2017 11:42 PM EST) athologist Signature POC Glucose 283 (H) 65 - 199 [facility] mg/dL [facility] [...] Organization Address City/State/[place] [address] POCT Glucose (08/09/2017 8:55 PM EST) athologist Signature POC Glucose 182 65 - 199 [place] mg/dL [facility] [...] City/[facility]/[place] [address] (ABNORMAL) APTT (08/09/2017 6:42 [...] City/[facility]/[place] [address] POCT Glucose (08/09/2017 4:41 PM EST) athologist Signature POC Glucose 195 65 - 199 [facility] mg/dL [facility] [...] City/[facility]/[place] [address] POCT Glucose (08/09/2017 12:29 PM EST) athologist Signature POC Glucose 140 65 - 199 [facility] mg/dL [facility] [...] ORDERABLE S Performing Organization Address [facility]/ZIP Code Phon e Number [address] POCT Glucose (08/09/2017 9:59 AM EST) P athologist Signature POC Glucose 135 65 - 199 [facility] mg/dL [facility] LABORATORY Comment: Supplemental ranges: <140 mg/dL before meals <180 mg/dL all other times of the day Specimen Anatomical Collection Method Collection Time Receive d Time (Source) Location / / Volume Laterality Blood specimen 08/09/2017 9:59 AM 018 9:59 (specimen) EST AM EST Yonathan Smith MD POINT OF CARE TEST ORDERABLE S Performing Organization Address [facility]/[place] [address] Specimen to Pathology (08/09/2017 [...] City/[facility]/[place] [address] Surgical Pathology Report (08/09/2017 8:40 AM EST) Component Value Ref Test Analysis Performed At Patholo gist Range Method Time Signature Surgical [id number] ? Location: [facility]; [facility]; A [facility] Report The signing pathologist has (i) [...] [facility] Dept. of Pathology, [place], [place] CLINICAL INFORMATION Specimen Submitted: A - [...] Address City/State/Z[place] [address] Anaerobic Culture (08/09/2017 8:30 AM EST) [facility] Method Time Signature Anaerobic No anaerobic [place] [facility] Culture organisms [facility] [...] City/[facility]/[place] [address] (ABNORMAL) Abscess/Wound Aspirate Culture (08/09/2017 8:30 AM EST) [facility] [employer] Method Time Signature Abscess/Wound Moderate mixed [facility] Aspirate bacterial [place] Culture morphotypes [facility] normal LABORATORY cutaneous leroy (A) Gram Stain Rare White Blood Cells [place] Few Gram Positive Cocci in pairs [place] () [facility] LABORATORY Organism Gram Positive [place] Cocci in pairs [place] () [facility] LABORATORY Specimen [...] [facility]/ZIP Code [place] [address] POCT Glucose (08/09/2017 4:28 AM EST) P athologist Signature POC Glucose 128 65 - 199 [facility]/dL [facility] [...] Organization Address City/State/[place] [address] ABORH Recheck Status (08/09/2017 1:10 AM EST) [facility] Method Time Signature ABORH Type Completed [facility] LABORATORY Specimen Anatomical Collection Method Collection Time Receive d Time (Source) Location / / Volume Laterality Blood specimen 08/09/2017 1:10 AM 018 1:35 (specimen) EST AM EST Resulting Agency Comment Spec In Lab Yonathan Smith MD BLOOD BANK ORDERABLES Performing Organization Address City/State/[place] [address] Antibody screen (08/09/2017 1:10 AM EST) [facility] Method [place] Signature Ab Screen Negative [facility] LABORATORY Expires at 08/12/2017 [facility] [id number] on: [facility] LABORATORY Specimen Anatomical Collection Method Collection Time Receive d Time (Source) Location / / Volume Laterality Blood specimen 08/09/2017 1:10 AM 018 1:35 (specimen) EST AM EST Resulting Agency Comment Spec In Lab Yonathan Smith MD BLOOD BANK ORDERABLES Performing Organization Address City/State/[place] [address] ABO/Rh Typing (08/09/2017 1:10 [...] Organization Address City/State/[place] [address] (ABNORMAL) APTT (08/09/2017 1:10 [...] Address City/State/ZIP [place] [address] (ABNORMAL) Differential, Automated (08/09/2017 1:10 AM EST) [facility] Method Time Signature Neutrophils % 76.2 % [facility] LABORATORY Neutr Abs (ANC) 8.59 (H) 1.70 - [facility] 6.10 [facility] x10(3)/[facility] LABORATORY Lymphocytes % 11.0 % [facility] LABORATORY Lymphocytes Abs 1.2 0.9 - 3.2 [facility] x10(3)/[facility] LABORATORY Monocytes % 8.4 % [facility] LABORATORY Monocyte Abs 1.0 (H) 0.3 - 0.9 [facility] x10(3)/[facility] LABORATORY Eosinophils % 3.5 % [facility] LABORATORY Eosinophils Abs 0.4 0.0 - 0.4 [facility] x10(3)/[facility] LABORATORY Basophils % 0.5 % [facility] LABORATORY Basophils Abs 0.1 0.0 - 0.1 [facility] x10(3)/[facility] LABORATORY [...] Address City/State/Z[place] [address] (ABNORMAL) Hemogram (08/09/2017 1:10 AM EST) Analysis Performed At Patho logist Time Signature WBC 11.3 (H) 4.0 - 9.5 [facility] x10(3)/[facility] LABORATORY RBC 3.47 (L) 4.58 - [facility] 5.54 [facility] x10(6)/[facility] LABORATORY Hemoglobin 10.0 (L) 13.7 - [facility] 16.5 gm/dL [facility] LABORATORY Hematocrit 31.9 (L) 40.5 - [facility] 48.5 % [facility] LABORATORY MCV 91.9 82.9 - [facility] 93.1 [facility] LABORATORY MCH 28.8 27.5 - [facility] 32.1 pg [facility] LABORATORY MCHC 31.3 (L) 32.0 - [facility] 35.7 gm/dL [facility] LABORATORY Platelets 234 145 - 357 [facility] x10(3)/[facility] LABORATORY RDWSD 54.0 (H) 36.0 - [facility] SU 45.0 [facility] LABORATORY RDWCV 16.2 (H) 11.4 - [facility] SU 13.8 % [facility] LABORATORY MPV 8.7 7.6 - 12.9 [facility] LABORATORY nRBC % Auto 0.0 % [facility] LABORATORY nRBC Abs Auto 0.000 0.000 - [facility] 0.000 [facility] x10(3)/[facility] LABORATORY Specimen Anatomical Collection Method Collection Time Receive d Time (Source) Location / / Volume Laterality Blood specimen 08/09/2017 1:10 AM 018 1:19 (specimen) EST AM EST Resulting Agency Comment Spec In Lab Yonathan Smith MD HEMATOLOGY ORDERABLES Performing Organization Address City/[facility]/[place] [address] (ABNORMAL) Prothrombin Time (08/09/2017 [...] City/[facility]/[place] [address] (ABNORMAL) Basic Metabolic Panel (non-fasting) (08/09/2017 1:10 AM EST) P athologist Signature Glucose Lvl 108 65 - 199 [facility] mg/dL [facility] [...] CENTER LABORATORY Estimated GFR 45 (L) >=60 [facility] LABORATORY Comment: The reported eGFR should be multiplied b y 1.2 for patients. The MDRD is not an appropriate measure o f renal function for patients with body mass extremes or in patients with acute kidney failure. [email or web address] Specimen Anatomical Collection Method Collection Time Receive d Time (Source) Location / / Volume Laterality Blood specimen 08/09/2017 1:10 AM 018 1:19 (specimen) EST AM EST Resulting Agency Comment Spec In Lab Yonathan Smith MD CHEMISTRY ORDERABLES Performing Organization Address City/State/ZIP Code Phon e Number [address] POCT Glucose (08/09/2017 12:05 AM EST) athologist Signature POC Glucose 128 65 - 199 [facility] mg/dL [facility] [...] City/[facility]/[place] [address] (ABNORMAL) POCT Glucose (08/08/2017 7:36 PM EST) athologist Signature POC Glucose 215 (H) 65 - 199 [facility]dL [facility] Organization Address City/State/[place] [address] (ABNORMAL) POCT Glucose (08/08/2017 6:23 PM EST) P athologist Signature POC Glucose 216 (H) 65 - 199 [facility] mg/dL [facility] [...] City/[facility]/[place] [address] (ABNORMAL) APTT (08/08/2017 6:00 [...] City/[facility]/[place] [address] POCT Glucose (08/08/2017 4:42 PM EST) athologist Signature POC Glucose 78 65 - 199 [facility]/dL [facility] LABORATORY [...] Organization Address City/State/[place] [address] (ABNORMAL) POCT Glucose (08/08/2017 4:01 PM EST) athologist Signature POC Glucose 58 (L) 65 - 199 [facility] mg/dL [facility] LABORATORY [...] Organization Address City/State/[place] [address] POCT Glucose (08/08/2017 11:51 AM EST) athologist Signature POC Glucose 90 65 - 199 [facility] mg/dL [facility] LABORATORY [...] Organization Address City/State/[place] [address] (ABNORMAL) APTT (08/08/2017 10:27 [...] Address City/State/ZIP Code Phon e Number [address] POCT Glucose (08/08/2017 8:02 AM EST) athologist Signature POC Glucose 178 65 - 199 [facility] mg/dL [facility] [...] City/[facility]/[place] [address] (ABNORMAL) APTT (08/08/2017 4:51 AM EST) athologist Signature PTT >160 25 - 35 [facility] (Critical) sec [facility] LABORATORY Comment: Called by: HOWARD, [...] Address City/State/[place] [address] (ABNORMAL) Differential, Automated (08/08/2017 4:51 AM EST) [facility] gist Method Time Signature Neutrophils % 77.9 % [facility] LABORATORY Neutr Abs (ANC) 8.17 (H) 1.70 - [facility] 6.10 [facility] x10(3)/[facility] LABORATORY Lymphocytes % 10.3 % [facility] LABORATORY Lymphocytes Abs 1.1 0.9 - 3.2 [facility] x10(3)/[facility] LABORATORY Monocytes % 7.0 % [facility] LABORATORY Monocyte Abs 0.7 0.3 - 0.9 [facility] x10(3)/[facility] LABORATORY Eosinophils % 3.6 % [facility] LABORATORY Eosinophils Abs 0.4 0.0 - 0.4 [facility] x10(3)/[facility] LABORATORY Basophils % 0.5 % [facility] LABORATORY Basophils Abs 0.0 0.0 - 0.1 [facility] x10(3)/[facility] LABORATORY Immature Gran % 0.70 % [...] Organization Address City/State/[place] [address] (ABNORMAL) Hemogram (08/08/2017 4:51 AM EST) Analysis Performed At Patho logist Time Signature WBC 10.5 (H) 4.0 - 9.5 [facility] x[facility](3[facility] LABORATORY RBC 3.27 (L) 4.58 - [facility] 5.54 [facility] x10(6)/[facility] LABORATORY Hemoglobin 9.3 (L) 13.7 - [facility] 16.5 gm/dL [facility] LABORATORY Hematocrit 30.3 (L) 40.5 - [facility] 48.5 % [facility] LABORATORY MCV 92.7 82.9 - [facility] 93.1 [facility] LABORATORY MCH 28.4 27.5 - [facility] 32.1 pg [facility] LABORATORY MCHC 30.7 (L) 32.0 - [facility] 35.7 gm/dL [facility] LABORATORY Platelets 252 145 - 357 [facility] x10(3)/[facility] LABORATORY RDWSD 54.6 (H) 36.0 - [facility] 45.0 [facility] LABORATORY RDWCV 16.2 (H) 11.4 - [facility] 13.8 % [facility] LABORATORY MPV 9.1 7.6 - 12.9 [facility] LABORATORY nRBC % Auto 0.0 % [facility] LABORATORY nRBC Abs Auto 0.000 0.000 - [facility] 0.000 [facility] x10(3)/[facility] LABORATORY Specimen Anatomical Collection Method Collection Time Receive d Time (Source) Location / / Volume Laterality Blood specimen 08/08/2017 4:51 AM 018 5:14 (specimen) EST AM EST Resulting Agency Comment Spec In Lab Yonathan Smith MD HEMATOLOGY ORDERABLES Performing Organization Address City/State/[place] [address] (ABNORMAL) Prothrombin Time (08/08/2017 [...] Address City/State/Z[place] [address] (ABNORMAL) Basic Metabolic Panel (non-fasting) (08/08/2017 4:51 AM EST) athologist Signature Glucose Lvl 229 (H) 65 - 199 [facility] mg/dL [facility] [...] CENTER LABORATORY Estimated GFR 44 (L) >=60 [facility] LABORATORY Comment: The reported eGFR should be multiplied b y 1.2 for patients. The MDRD is not an appropriate measure o f renal function for patients with body mass extremes or in patients with acute kidney failure. http://[email or web address] [email or web address]/DHMCnkf Specimen Anatomical Collection Method Collection Time Receive d Time (Source) Location / / Volume Laterality Blood specimen 08/08/2017 4:51 AM 018 5:14 (specimen) EST AM EST Resulting Agency Comment Spec In Lab Yonathan Smith MD CHEMISTRY ORDERABLES Performing Organization Address City/[facility]/ZIP Code Phon e Number [address] POCT Glucose (08/08/2017 4:20 AM EST) athologist Signature POC Glucose 193 65 - 199 [facility] mg/dL [facility] [...] Address City/State/ZIP Code Phon e Number [address] POCT Glucose (08/07/2017 11:11 PM EST) athologist Signature POC Glucose 124 65 - 199 [facility] mg/dL [facility] [...] City/[facility]/[place] [address] (ABNORMAL) APTT (08/07/2017 10:18 [...] City/[facility]/[place] [address] POCT Glucose (08/07/2017 8:10 PM EST) athologist Signature POC Glucose 140 65 - 199 [facility] mg/dL [facility] [...] City/[facility]/[place] [address] POCT Glucose (08/07/2017 5:27 PM EST) athologist Signature POC Glucose 187 65 - 199 [facility] mg/dL [facility] [...] City/[facility]/[place] [address] POCT Glucose (08/07/2017 3:29 PM EST) athologist Signature POC Glucose 86 65 - 199 [facility] mg/dL [facility] [...] ORDERABLE S Performing Organization Address [facility]/ZIP [facility] [place] [address] (ABNORMAL) APTT (08/07/2017 2:50 [...] ORDERABLES Performing Organization Address City/[facility]/ZIP [facility] Phon e Number [address] (ABNORMAL) POCT Glucose (08/07/2017 2:23 PM EST) athologist Signature POC Glucose 55 (L) 65 - 199 [facility] mg/dL [facility] [...] Address City/State/ZIP Code Phon e Number [address] POCT Glucose (08/07/2017 12:08 PM EST) P athologist Signature POC Glucose 77 65 - 199 [facility] mg/dL [facility] [...] Address City/State/ZIP Code Phon e Number [address] (ABNORMAL) Differential, Automated (08/07/2017 7:30 AM EST) Patholo gist Method Time Signature Neutrophils % 73.8 % [facility] LABORATORY Neutr Abs (ANC) 7.17 (H) 1.70 - [facility] 6.10 [facility] x10(3)/[facility] LABORATORY Lymphocytes % 12.2 % [facility] LABORATORY Lymphocytes Abs 1.2 0.9 - 3.2 [facility] x10(3)/[facility] LABORATORY Monocytes % 9.0 % [facility] LABORATORY Monocyte Abs 0.9 0.3 - 0.9 [facility] x10(3)/[facility] LABORATORY Eosinophils % 3.9 % [facility] LABORATORY Eosinophils Abs 0.4 0.0 - 0.4 [facility] x10(3)/[facility] LABORATORY Basophils % 0.6 % [facility] LABORATORY Basophils Abs 0.1 0.0 - 0.1 [facility] x10(3)/[facility] LABORATORY Immature Gran % 0.50 % [...] Address City/State/Z[place] [address] (ABNORMAL) Hemogram (08/07/2017 7:30 AM EST) Analysis Performed At Patho logist Time Signature WBC 9.7 (H) 4.0 - 9.5 [facility] x10(3)/[facility] LABORATORY RBC 3.54 (L) 4.58 - [facility] 5.54 [facility] x10(6)/[facility] LABORATORY Hemoglobin 9.9 (L) 13.7 - [facility] 16.[facility] gm/dL [facility] LABORATORY Hematocrit 32.3 (L) 40.5 - [facility] 48.5 % [facility] LABORATORY MCV 91.2 82.9 - [facility] 93.1 [facility] LABORATORY MCH 28.0 27.5 - [facility] 32.1 pg [facility] LABORATORY MCHC 30.7 (L) 32.0 - [facility] 35.7 gm/dL [facility] LABORATORY Platelets 312 145 - 357 [facility] x10(3)/[facility] LABORATORY RDWSD 53.2 (H) 36.0 - [facility] 45.0 [facility] LABORATORY RDWCV 16.0 (H) 11.4 - [facility] 13.8 % [facility] LABORATORY MPV 8.9 7.6 - 12.9 [facility] LABORATORY nRBC % Auto 0.0 % [facility] LABORATORY nRBC Abs Auto 0.000 0.000 - [facility] 0.000 [facility] x10(3)/[facility] LABORATORY Specimen Anatomical Collection Method Collection Time Receive d Time (Source) Location / / Volume Laterality Blood specimen 08/07/2017 7:30 AM 018 7:45 (specimen) EST AM EST Resulting Agency Comment Spec In Lab Yonathan Smith MD HEMATOLOGY ORDERABLES Performing Organization Address City/State/ZIP [place] [address] (ABNORMAL) Basic Metabolic Panel (non-fasting) (08/07/2017 7:30 AM EST) P athologist Signature Glucose Lvl 80 65 - 199 [facility] mg/dL [facility] [...] CENTER LABORATORY Estimated GFR 59 (L) >=60 [facility] LABORATORY Comment: The reported eGFR should be multiplied b y 1.2 for patients. The MDRD is not an appropriate measure o f renal function for patients with body mass extremes or in patients with acute kidney failure. http://Buzzoo/DHnkdep http://Buzzoo/DHMCnkf Specimen Anatomical Collection Method Collection Time Receive d Time (Source) Location / / Volume Laterality Blood specimen 08/07/2017 7:30 AM 018 7:45 (specimen) EST AM EST Resulting Agency Comment Spec In Lab Yonathan Smith MD CHEMISTRY ORDERABLES Performing Organization Address City/[facility] Phon e Number [address] POCT Glucose (08/07/2017 7:27 AM EST) athologist Signature POC Glucose 81 65 - 199 [facility] mg/dL [facility] LABORATORY Comment: Supplemental ranges: <140 mg/dL before meals <180 mg/dL all other times of the day Specimen Anatomical Collection Method Collection Time Receive d Time (Source) Location / / Volume Laterality Blood specimen 08/07/2017 7:27 AM 018 7:27 (specimen) EST AM EST Yonathan Smith MD POINT OF CARE TEST ORDERABLE S Performing Organization Address [facility] Phon e Number [address] APTT (08/07/2017 7:04 AM [...] City/[facility]/[place] [address] (ABNORMAL) Prothrombin Time (08/07/2017 [...] Organization Address City/State/[place] [address] POCT Glucose (08/07/2017 4:03 AM EST) athologist Signature POC Glucose 93 65 - 199 [facility] mg/dL [facility] [...] Organization Address City/State/[place] [address] POCT Glucose (08/07/2017 12:04 AM EST) athologist Signature POC Glucose 107 65 - 199 [facility] mg/dL [facility] [...] Address City/State/ZIP Code Phon e Number [address] POCT Glucose (08/06/2017 7:56 PM EST) P athologist Signature POC Glucose 178 65 - 199 [facility] mg/dL [facility] [...] Address City/State/ZIP Code Phon e Number [address] [id number] (08/06/2017 2:32 PM EST) Component Value Ref Test Analysis Performed At Patholo gist Range Method Time Signature VB Text Department: Vascular Surgery Lab VASCUBASE Report Patient: [id number] (GREGORY HOANG) CPT: [id number] ICD10: I99.8 Referring Physician: YONATHAN SMITH ?? [...]
Routine documented in this encounter Care Teams Process Manager Relationship Specialty Start Date End Date Lovely Vicente MD PCP - General 04/16/[address] [place] [address] [address] [place] [address] documented as of this encounter
--- OUTSIDE RECORDS SUMMARY | 2022-05-08 02:23 | XMS_ITS | Encounter Summary ---
:1945 Author Organization [facility] [place] [address] Care Team Providers Name Role Phone Lovely Vicente MD Primary Care Provider Encounter Details Date Type Department Care Team Description 08/09/2017 Clinical Support Same Day at [facility] Canceled (D-SCHED ERROR [facility] / CORRECT [place] ) [place] [address] Social History Tobacco Use Types Packs/Day [...] MD [facility] [place], [place] [address] (Wo rk) 05/28/2022 Laboratory Appointment Lab 05/28/2022 Office Visit Cardiology Zulma Dolan MD [facility] [place] [id number] Liz Poole PA [facility] [place] [address] 06/10/2022 Office Visit Dermatology Laura Scherer MD [facility] [address] [place], [place] [address] (Wo rk) documented as of this encounter Procedures Procedure Name Priority Date/Time Associated Diagnosis Comme nts HVAC SERVICE 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 documented in this encounter Results SCAN DOC: HVAC SERVICE TECHNICIAN (08/09/2017 12:00 AM EST) Narrative 08/09/2017 12:00 AM EST This result has an attachment that is no t available. Ordered by an unspecified provider. Scanning Provider MEDIA MGR SCAN EXT ORDR/RSLT documented in this encounter Visit Diagnoses Not on filedocumented in this encounter Care Teams Datastage Consultant Relationship Specialty Start Date End Date Lovely Vicente MD PCP - General 04/16/[address] [place] [address] documented as of this encounter
--- OUTSIDE RECORDS SUMMARY | 2022-05-08 02:23 | XMS_ITS | Encounter Summary ---
:1945 Author Organization [facility] [address] Care Team Providers Name Role Phone Lovely Vicente MD Primary Care Provider Reason for Visit Auth/Cert Specialty Diagnoses / Procedures Referred By Contact Refer red To Contact Diagnoses Critical lower limb ischemia CELLULITIS RT FOOT Procedures EMERGENCY Referral ID Status Reason Start Date Expiration Date Visits Requ ested Visits Authorized [id number] 1 1 Encounter Details Date Type Department Care Team Description 08/11/2017 Surgery Main Operating Room Yonathan Smith (M SURG) DRESSING CHANGE Barbara Ocampo MD (FOR OTHER THAN IVAN) [facility] UNDER ANES. 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 Patient [...] Dorsalis Pedis (Ankle) Artery ?132 ? 0.94 ??[place]-Biphasic ? Posterior Tibial (Ankle) Artery ??154 ? 1.10 ??[place]-Biphasic ? Fourth Toe ? 67 ?0.48 ?? [...] For any problems or questions please call [phone] ZELDA Smith, strip feeder Nurse Clinician For issues on weeknights after 5pm and weekends please call [phone] and ask for the Vascular Fellow stitch bonding machine tender helper. General Instructions None Future Appointments and Orders Future Appointments Provider Department Dept Phone 08/26/2017 4:00 PM Aurelia Rivera PA [facility] Surgery [facility] [place] [phone] 09/07/2017 3:00 PM LAB, THREE L Lab 3L [facility] [phone] 09/07/2017 4:00 PM Luz Prescott MD Endocrinology [facility] [place] [phone] 09/09/2017 8:00 AM Barbra Soares APRN Pain Management [facility] [place] [phone] Please bring a list of your current [...] For any problems or questions please call [phone] ZELDA Smith, strip feeder Nurse Clinician For issues on weeknights after 5pm and weekends please call [phone] and ask for the Vascular Fellow stitch bonding machine tender helper. documented in this encounter Medications at [...] Discharge Note Patient Destination: [facility] ([facility]) [address] [place] [id number] Transportation: with (at bedside) Time of Discharge: by 12 noon Level of Care: swing Patient Aware: yes Family Notified: yes Md to call report to: Yissel Quintero NURSES' ASSOCIATION COUNSELOR already called RN to call report to: [phone] Shirin Wolf Office of Care Management Pager [phone] Shirin Wagner RN - 08/16/2017 10:50 AM EST [facility] has offered pt swing bed. Pt and accept bed. will transport via car. NURSES' ASSOCIATION COUNSELOR Yissel Quintero aware; d/c paperwork will be completed by 12 noon. [facility] requests pt arrival by 1400 today; NURSES' ASSOCIATION COUNSELOR, RN, and family aware. NURSES' ASSOCIATION COUNSELOR called [facility] and was told that they prefer pt to arrive with wound vac dressing applied but clamped. NURSES' ASSOCIATION COUNSELOR applied new wound vac dressing. RN has [facility] number to call report. PASSR completed; NURSES' ASSOCIATION COUNSELOR paged to request provider signature in highlighted space. Indigo from [facility] notified via email that home wound vac now cancelled; [facility] has picked up from room and order cancelled. Packet started and provided to online community manager. Medicare important message explained to patient, patient signed. Copy provided to patient and signature page to OCM for inclusion in pt EMR. Radha Georges - 08/16/2017 10:34 AM EST Office of Care Management/Singing Teacher Patient Name: Gregory Hoang : 1945 Patient has been offered a swing bed at [facility]. The patient will be transported by private transportation. No MD to MD report necessary Please call Nursing Report to [phone], ask for nitro worker. Info to accompany patient: Narcotic Prescriptions Copies of Medication Administration Records and IV sheets for past 10 days. Plan: Singing Teacher will be available to the patient and Personal Lines Account Manager-RN and/or Contact Worker for further assistance. Patient will be discharged to: [facility] [address] [place] [id number] Radha Powers, Singing Teacher Mira Black, VAMSI - 08/15/2017 10:05 PM EST [address] Flores to ask if he wanted to hold metoprolol dose. BP 95/58. OK to hold this dose Courtney Brito - 08/15/2017 3:26 PM EST Office of Care Management(OCM)/Singing Teacher(RS)/ D/C Planning re : Patient is [...] status. 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 Vac in place. Rehab [...] patient's referral to: [facility] PHONE: [phone] FAX: [phone] CM spoke with RS who said that [...] rehab. Await recommendations from PT. Covering pager #[phone]. 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 Yard Caller Kaitlin Saha, RN Pager #[phone] Payam Rosales - 08/13/2017 2:37 PM EST Thermal Cutter Helper Encounter Note Patient Name: Gregory Hoang : [id number] MR#: [id number] Admit Date: 08/06/2017 1:41 PM Hospital Day 7 days Narrative: Visited to introduce and assess acceptance of Thermal Cutter Helper services. Pt was awake, alert, oriented and in chair and family was there. Assessment:Patient coping positively with stresses of illness/hospitalization at this time. Pt says that he is hoping to get better and his family was there. Pt says that he has family care and supportand taking one day at time. Intervention and Outcome: Provided emotional support and encouraging presence. 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 A letter describing our affiliations was reviewed with them and theywere educated about their right to choose where referrals are placed. Patient requests referral to [facility]. PHONE: [phone] FAX: [phone]. And Home NPWT (Negative Pressure Wound Therapy) aka wound vac device made available to pt. Serial # confirmed. Reviewed [facility] Proof of Delivery/Assignment of Benefits Statement(POD/AOB) Form w patient or authorized agent signing on behalf of patient. Copy of POD/AOB provided to pt and other copy faxed to [employer] @ fax# [phone] Expected date of discharge: 08/12/2017. 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 Unsuccessful draw attempt, another harvest supervisor will come [facility] to collect blood for PTT test. 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 Vascular resident stitch bonding machine tender helper and will forward result to the team prior to rounds. 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 Patient [...] left blue toes with CTA showing R HEAVY ANTIARMOR WEAPONS INFANTRYMAN pseudoaneurysm (now thrombosed) and occluded ATs bilaterally. [...] 2.5x80 5. Completion RLE angiogram 6. L HEAVY ANTIARMOR WEAPONS INFANTRYMAN angiogram 7. 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 - L HEAVY ANTIARMOR WEAPONS INFANTRYMAN angriogram demonstrated: High femoral bifurcation over the proximal half of the femoral head. L HEAVY ANTIARMOR WEAPONS INFANTRYMAN access in the distal L HEAVY ANTIARMOR WEAPONS INFANTRYMAN. - Closure device: Mynx Technical Procedure: The [...] for a 45cm 5F Destination. V18 and Summit and QuickCross catheters were used to select [...] 5F. A stationed picture of the L HEAVY ANTIARMOR WEAPONS INFANTRYMAN was performed as the patient was noted to have a very high bifurcation. Access appeared in the distal R HEAVY ANTIARMOR WEAPONS INFANTRYMAN. Closure and sheath removal was performed with [...] PM EST 1440 report called to 5 [facility] nurse Tessa AGUSTIN documented in this encounter Miscellaneous Notes Plan of Care - Dory Truong RN - 08/16/2017 10:51 AM EST Problem: Patient Care Overview Goal: Plan of Care Review Outcome: Outcome (s) achieved Date Met: 08/16/17 08/14/17 1939 08/16/17 5421 Coping/Psychosocial Plan Of Care Reviewed With -- [...] sit/sit to supine -- Bed Mobility Goal, [place] Level independent -- Bed Mobility Goal, Date [...] days -- Transfer Training Goal, Activity Type epn-rc-sytej/jukyc-sp-qlr -- Transfer Train Goal, [place] Level conditional independence -- Transfer Train Goal, [...] call cabello within reach, Hourly rounding by RN/LUMBER PLANER. Bed alarm / Chair alarm. Patient-specific fall [...] Smith MD - 08/15/2017 6:28 PM EST [facility] Operative Note Patient Name: Gregory Hoang : [id number] MR#: [id number] Case Date: 08/09/2017 Surgeon: Surgeon(s) and Role: [...] 2.5x80 5. Completion RLE angiogram 6. L HEAVY ANTIARMOR WEAPONS INFANTRYMAN angiogram 7. Mynx closure Precautions/Restrictions: fall, sternal [...] other (see comments) (or swing bed) Pager: [phone] BASSAM ELIAS, PT 08/14/2017 Inpatient Physical Therapy [...] to Achieve by discharge Gait Training Goal, [place] Level conditional independence;set up required Gait Training [...] choices are: 1- [facility] PHONE: [phone] FAX: [phone] 2- [facility] ([facility]) [address] [place] [address] 3- [facility]) [address] [place] [address] I have discussed Medicare/Private Insurance [...] RS/CM on Wednesday to follow-up. Covering pager #[phone] for today. Plan of Care - Henrique [...] with additional findings of pseudoaneurysm on R HEAVY ANTIARMOR WEAPONS INFANTRYMAN and bilateral anterior tibial artery occlusions. Was [...] an outpatient once discharged. Have patient call [phone] to set up an appointment. Follow-up: Dermatology will sign-off for now. Please do not hesitate to contact us if you have any questions orconcerns. Impression and Recommendations discussed with primary team on 08/13/2017. Karo Henderson MD Resident in Dermatology Section of Dermatology, Department of Surgery [facility] Pager [phone] Patient seen and evaluated with staff Photographic Technician: Halima Cordero MD Section of Dermatology [place] [...] 2.5x80 5. Completion RLE angiogram 6. L HEAVY ANTIARMOR WEAPONS INFANTRYMAN angiogram 7. Mynx closure Active Non-Hospital Problems [...] home with home health ([facility] PT[facility]OT) Pager: [phone] YASIR TELLO OT 08/12/2017 Occupational Therapy Rehabilitation [...] 2.5x80 5. Completion RLE angiogram 6. L HEAVY ANTIARMOR WEAPONS INFANTRYMAN angiogram 7. Mynx closure Past Medical History: [...] with 24/7 assistance and maximal services) Pager: [phone] NICHOLAS MORA, JESSIE 08/12/2017 Physical Therapy Rehabilitation [...] sit/sit to supine -- Bed Mobility Goal, [place] Level independent -- Bed Mobility Goal, Outcome Achieved -- goal ongoing Goal: Gait Training Goal Stand Alone Therapy Goal Outcome: Ongoing (Interventions Implemented as Appropriate) 08/11/17 1310 08/12/17 1510 Gait Training Goal Gait Training Goal, Date Established 08/11/17 -- Gait Training Goal, Time to Achieve 5 - 7 days -- Gait Training Goal, [place] Level conditional independence -- Gait Training Goal, [...] days -- Transfer Training Goal, Activity Type osb-qm-bidho/erhus-kg-etd -- Transfer Train Goal, [place] Level conditional independence -- Transfer Training Goal, [...] Smith MD - 08/11/2017 2:52 PM EST [facility] Operative Note Patient Name: Gregory Hoang : [id number] MR#: [id number] Case Date: 08/11/2017 Surgeon: Surgeon(s) and Role: [...] 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 Completion RLE angiogram 6. L HEAVY ANTIARMOR WEAPONS INFANTRYMAN angiogram 7. Mynx closure He is very [...] Anticipated Discharge Disposition: inpatient rehabilitation facility Pager: [phone] LAWRENCE GONZALEZ, PT 08/11/2017 Physical Therapy Rehabilitation [...] to sit/sit to supine Bed Mobility Goal, [place] Level independent Goal: Gait Training Goal Stand Alone Therapy Goal Outcome: Ongoing (Interventions Implemented as Appropriate) 08/11/17 1310 Gait Training Goal Gait Training Goal, Date Established 08/11/17 Gait Training Goal, Time to Achieve 5 - 7 days Gait Training Goal, [place] Level conditional independence Gait Training Goal, Assist [...] 7 days Transfer Training Goal, Activity Type lwx-la-zskzg/nuxtj-xj-psk Transfer Train Goal, [place] Level conditional independence Plan of Care - [...] call cabello within reach, Hourly rounding by RN/LUMBER PLANER. Bed alarm / Chair alarm. ? Patient-specific [...] 04/05/2013 Hospitalizations Within the Past 30 Days: [facility] 07/20/2017 Anticipated Length Of Stay (If known): Expected Length of Hospitalization: 5-7 days2-3 days Current Decision-Making Capacity: Alert and oriented x 4 Advance Care Planning: on file Kisha Hoang [facility] [phone] Current Coping/Education/Information Needs: pt and spouse state [...] Health/Prescription Coverage: Primary Insurance: MEDICARE Secondary Insurance: [place] Prescription Coverage: See above Preferred Pharmacy: [facility] Other: N/A Primary Care Provider: Lovely Vicente MD [phone] Patient/Caregiver Goals of Treatment: Patient plans to [...] of care planning. Kaitlin Saha RN Pager: [phone] Plan of Care - Melba Jaramillo RN [...] Overview Goal: Plan of Care Review 08/08/17 7674 Coping/Psychosocial Plan Of Care Reviewed With patient [...] call cabello within reach, Hourly rounding by RN/LUMBER PLANER. Bed alarm / Chair alarm. Patient-specific fall [...] at bedside and MD TEAM Carrying pager [phone] contacted (via Radio page) and notified of [...] Zulma Dolan MD [facility] [place], [place] [address] (Wo rk) 05/28/2022 Laboratory Appointment Lab 05/28/2022 Office Visit Cardiology Zulma Dolan [place] [address] Liz Poole PA [facility] [place] [address] 06/10/2022 Office Visit Dermatology Laura Scherer MD [facility] DR TEJA [address], [place] [address] (Wo rk) documented as of [...] 160 65 - 199 [place] mg/dL [facility] Comment: Supplemental ranges: <140 mg/dL before meals <180 mg/dL all other times of the day Specimen Anatomical Collection Method Collection Time Receive d Time (Source) Location / / Volume Laterality Blood specimen 08/16/2017 7:28 AM 018 7:28 (specimen) EST AM EST Yonathan Smith MD POINT OF CARE TEST ORDERABLE S Performing Organization Address City/State/[place] [address] (ABNORMAL) Differential, Automated (08/16/2017 5:08 AM EST) [facility] Method Time Signature Neutrophils % 73.9 % [facility] Neutr Abs (ANC) 5.37 1.70 - [facility] 6.10 [facility] x10(3)/[facility] LABORATORY Lymphocytes % 10.1 % [facility] Lymphocytes Abs 0.7 (L) 0.9 - 3.2 [facility] x10(3)/[facility] LABORATORY Monocytes % 10.1 % [facility] Monocyte Abs 0.7 0.3 - 0.9 [facility] x10(3)/[facility] LABORATORY Eosinophils % 5.1 % [facility] Eosinophils Abs 0.4 0.0 - 0.4 [facility] x10(3)/[facility] LABORATORY Basophils % 0.4 % [facility] Basophils Abs 0.0 0.0 - 0.1 [facility] x10(3)/[facility] LABORATORY Immature Gran % 0.40 % [...] Abs 0.03 0.00 - 0.04 x10(3)/[facility] LABORATORY Specimen Anatomical Collection Method Collection Time Receive d Time (Source) Location / / Volume Laterality Blood specimen 08/16/2017 5:08 AM 018 5:20 (specimen) EST AM EST Resulting Agency Comment Spec In Lab Yonathan Smith MD HEMATOLOGY ORDERABLES Performing Organization Address City/State/[place] [address] (ABNORMAL) Hemogram (08/16/2017 5:08 AM EST) Analysis Performed At Patho logist Time Signature WBC 7.3 4.0 - 9.5 [place] x10(3)/[facility] LABORATORY RBC 3.36 (L) 4.58 - [place] 5.54 [facility] x10(6)/[facility] LABORATORY Hemoglobin 9.7 (L) 13.7 - [facility] 16.5 gm/dL [facility] Hematocrit 30.3 (L) 40.5 - [place] 48.5 % [facility] MCV 90.2 82.9 - [facility] RYAN 93.1 [facility] LABORATORY MCH 28.9 27.5 - [place] 32.1 pg [facility] MCHC 32.0 32.0 - [place] 35.7 gm/dL [facility] Platelets 282 145 - 357 [facility] x[facility](3[facility] LABORATORY RDWSD 53.9 (H) 36.0 - [place] 45.0 [facility] LABORATORY RDWCV 16.5 (H) 11.4 - [place] 13.8 % [facility] MPV 9.0 7.6 - 12.9 [place] [facility] LABORATORY nRBC % Auto 0.0 % [facility]OR[facility]ORY nRBC Abs Auto 0.000 0.000 - [place] 0.000 [facility] x10(3)/[facility] LABORATORY Specimen Anatomical Collection Method Collection Time Receive d Time (Source) Location / / Volume Laterality Blood specimen 08/16/2017 5:08 AM 018 5:20 (specimen) EST AM EST Resulting Agency Comment Spec In Lab Yonathan Smith MD HEMATOLOGY ORDERABLES Performing Organization Address City/State/ZIP Code Phon e Number [place] [id number] (ABNORMAL) Basic Metabolic Panel (non-fasting) (08/16/2017 5:08 AM EST) P athologist Signature Glucose Lvl 141 65 - 199 [facility] mg/dL [facility] Comment: [...] or in patients with acute kidney failure. [email or web address]/DHnkdep http://[employer]/DHMCnkf Specimen Anatomical Collection Method Collection Time Receive d Time (Source) Location / / Volume Laterality Blood specimen 08/16/2017 5:08 AM 018 5:20 (specimen) EST AM EST Resulting Agency Comment Spec In Lab Yonathan Smith MD CHEMISTRY ORDERABLES Performing Organization Address City/State/[place] [address] (ABNORMAL) Prothrombin Time (08/16/2017 [...] HEMATOLOGY ORDERABLES Performing Organization Address City/[facility]/ZIP Code Phon e Number [address] POCT Glucose (08/16/2017 4:09 AM EST) athologist Signature POC Glucose 147 65 - 199 [facility] mg/dL [facility] Comment: Supplemental ranges: <140 mg/dL before meals <180 mg/dL all other times of the day Specimen Anatomical Collection Method Collection Time Receive d Time (Source) Location / / Volume Laterality Blood specimen 08/16/2017 4:09 AM 018 4:09 (specimen) EST AM EST Yonathan Smith MD POINT OF CARE TEST ORDERABLE S Performing Organization Address City/[facility]/ZIP Code Phon e Number [address] POCT Glucose (08/15/2017 11:56 PM EST) athologist Signature POC Glucose 176 65 - 199 [facility] mg/dL [facility] Comment: Supplemental ranges: <140 mg/dL before meals <180 mg/dL all other times of the day Specimen Anatomical Collection Method Collection Time Receive d Time (Source) Location / / Volume Laterality Blood specimen 08/15/2017 11:56 8 (specimen) PM EST 11:56 PM EST Yonathan Smith MD POINT OF CARE TEST ORDERABLE S Performing Organization Address City/[facility]/ZIP Code Phon e Number [address] POCT Glucose (08/15/2017 8:05 PM EST) athologist Signature POC Glucose 136 65 - 199 [place] mg/dL [facility] Comment: Supplemental ranges: <140 mg/dL before meals <180 mg/dL all other times of the day Specimen Anatomical Collection Method Collection Time Receive d Time (Source) Location / / Volume Laterality Blood specimen 08/15/2017 8:05 PM 018 8:05 (specimen) EST PM EST Yonathan Smith MD POINT OF CARE TEST ORDERABLE S Performing Organization Address City/State/[place] [address] (ABNORMAL) POCT Glucose (08/15/2017 4:50 PM EST) athologist Signature POC Glucose 232 (H) 65 - 199 [facility] mg/dL [facility] Comment: Supplemental ranges: <140 mg/dL before meals <180 mg/dL all other times of the day Specimen Anatomical Collection Method Collection Time Receive d Time (Source) Location / / Volume Laterality Blood specimen 08/15/2017 4:50 PM 018 4:50 (specimen) EST PM EST Yonathan Smith MD POINT OF CARE TEST ORDERABLE S Performing Organization Address City/State/[place] [address] POCT Glucose (08/15/2017 12:04 PM EST) athologist Signature POC Glucose 135 65 - 199 [place] mg/dL [facility] Comment: Supplemental ranges: <140 mg/dL before meals <180 mg/dL all other times of the day Specimen Anatomical Collection Method Collection Time Receive d Time (Source) Location / / Volume Laterality Blood specimen 08/15/2017 12:04 8 (specimen) PM EST 12:04 PM EST Yonathan Smith MD POINT OF CARE TEST ORDERABLE S Performing Organization Address City/State/[place] [address] POCT Glucose (08/15/2017 7:36 AM EST) P athologist Signature POC Glucose 124 65 - 199 [facility] mg/dL [facility] Comment: Supplemental ranges: <140 mg/dL before meals <180 mg/dL all other times of the day Specimen Anatomical Collection Method Collection Time Receive d Time (Source) Location / / Volume Laterality Blood specimen 08/15/2017 7:36 AM 018 7:36 (specimen) EST AM EST Yonathan Smith MD POINT OF CARE TEST ORDERABLE S Performing Organization Address City/State/[place] [address] (ABNORMAL) Differential, Automated (08/15/2017 6:22 AM EST) Patholo gist Method Time Signature Neutrophils % 76.1 % [facility] LABORATORY Neutr Abs (ANC) 6.62 (H) 1.70 - [facility] 6.10 [facility] x10(3)/[facility] L LABORATORY Lymphocytes % 9.3 % [facility]ORY Lymphocytes Abs 0.8 (L) 0.9 - 3.2 [facility] x10(3)/[facility] LABORATORY Monocytes % 9.4 % [facility] Monocyte Abs 0.8 0.3 - 0.9 [facility] x10(3)/[facility] LABORATORY Eosinophils % 4.0 % [facility] Eosinophils Abs 0.4 0.0 - 0.4 [facility] x10(3)/[facility] LABORATORY Basophils % 0.6 % [facility]ORY Basophils Abs 0.0 0.0 - 0.1 [facility] x10(3)/[facility] LABORATORY Immature Gran % 0.60 [...] Organization Address City/State/[place] [address] (ABNORMAL) Hemogram (08/15/2017 6:22 AM EST) Analysis Performed At Patho logist Time Signature WBC 8.7 4.0 - 9.5 [facility] x10(3)/[facility] LABORATORY RBC 3.21 (L) 4.58 - [facility] x10(6)/[facility] LABORATORY Hemoglobin 9.1 (L) 13.7 - [facility] 16.[facility] gm/dL [facility] Hematocrit 29.0 (L) 40.5 - [facility] 48.5 % [facility] MCV 90.3 82.9 - [facility] 93.1 [facility] LABORATORY MCH 28.3 27.5 - [facility] 32.1 pg [facility] MCHC 31.4 (L) 32.0 - [facility] 35.7 gm/dL [facility] Platelets 254 145 - 357 [facility] x10(3)/[facility] LABORATORY RDWSD 53.9 (H) 36.0 - [facility] 45.0 [facility] LABORATORY RDWCV 16.3 (H) 11.4 - [facility] 13.8 % [facility] MPV 8.8 7.6 - 12.9 [facility] LABORATORY nRBC % Auto 0.0 % [facility] LABORATORY nRBC Abs Auto 0.000 0.000 - [facility] 0.000 [facility] x10(3)/[facility] LABORATORY Specimen Anatomical Collection Method Collection Time Receive d Time (Source) Location / / Volume Laterality Blood specimen 08/15/2017 6:22 AM 018 6:33 (specimen) EST AM EST Resulting Agency Comment Spec In Lab Yonathan Smith MD HEMATOLOGY ORDERABLES Performing Organization Address City/State/[place] [address] (ABNORMAL) Basic Metabolic Panel (non-fasting) (08/15/2017 6:22 AM EST) P athologist Signature Glucose Lvl 118 65 - 199 [facility] mg/dL [facility] Comment: [...] or in patients with acute kidney failure. http://[employer].Typesafe/DHnkdep http://Met[employer].Typesafe/DHMCnkf Specimen Anatomical Collection Method Collection Time Receive d Time (Source) Location / / Volume Laterality Blood specimen 08/15/2017 6:22 AM 018 6:33 (specimen) EST AM EST Resulting Agency Comment Spec In Lab Yonathan Smith MD CHEMISTRY ORDERABLES Performing Organization Address City/State/[place] [address] (ABNORMAL) Prothrombin Time (08/15/2017 [...] HEMATOLOGY ORDERABLES Performing Organization Address City/[facility]/ZIP [place] [address] POCT Glucose (08/15/2017 4:33 AM EST) athologist Signature POC Glucose 164 65 - 199 [facility]dL [facility] Comment: Supplemental ranges: <140 mg/dL before meals <180 mg/dL all other times of the day Specimen Anatomical Collection Method Collection Time Receive d Time (Source) Location / / Volume Laterality Blood specimen 08/15/2017 4:33 AM 018 4:33 (specimen) EST AM EST Yonathan Smith MD POINT OF CARE TEST ORDERABLE S Performing Organization Address City/State/Z[place] [address] POCT Glucose (08/15/2017 12:12 AM EST) athologist Signature POC Glucose 89 65 - 199 [facility] mg/dL [facility] Comment: Supplemental ranges: <140 mg/dL before meals <180 mg/dL all other times of the day Specimen Anatomical Collection Method Collection Time Receive d Time (Source) Location / / Volume Laterality Blood specimen 08/15/2017 12:12 8 (specimen) AM EST 12:12 AM EST Yonathan Smith MD POINT OF CARE TEST ORDERABLE S Performing Organization Address City/State/[place] [address] (ABNORMAL) POCT Glucose (08/14/2017 8:07 PM EST) athologist Signature POC Glucose 204 (H) 65 - 199 [facility] mg/dL [facility] Comment: Supplemental ranges: <140 mg/dL before meals <180 mg/dL all other times of the day Specimen Anatomical Collection Method Collection Time Receive d Time (Source) Location / / Volume Laterality Blood specimen 08/14/2017 8:07 PM 018 8:07 (specimen) EST PM EST Yonathan Smith MD POINT OF CARE TEST ORDERABLE S Performing Organization Address City/State/Z[place] [address] POCT Glucose (08/14/2017 5:11 PM EST) athologist Signature POC Glucose 174 65 - 199 [facility] mg/dL [facility] Comment: Supplemental ranges: <140 mg/dL before meals <180 mg/dL all other times of the day Specimen Anatomical Collection Method Collection Time Receive d Time (Source) Location / / Volume Laterality Blood specimen 08/14/2017 5:11 PM 018 5:11 (specimen) EST PM EST Yonathan Smith MD POINT OF CARE TEST ORDERABLE S Performing Organization Address City/State/Z[place] [address] POCT Glucose (08/14/2017 12:10 PM EST) athologist Signature POC Glucose 141 65 - 199 [facility] mg/dL [facility] Comment: Supplemental ranges: <140 mg/dL before meals <180 mg/dL all other times of the day Specimen Anatomical Collection Method Collection Time Receive d Time (Source) Location / / Volume Laterality Blood specimen 08/14/2017 12:10 8 (specimen) PM EST 12:10 PM EST Yonathan Smith MD POINT OF CARE TEST ORDERABLE S Performing Organization Address City/State/Z[place] [address] POCT Glucose (08/14/2017 8:07 AM EST) P athologist Signature POC Glucose 158 65 - 199 [facility] Comment: Supplemental ranges: <140 mg/dL before meals <180 mg/dL all other times of the day Specimen Anatomical Collection Method Collection Time Receive d Time (Source) Location / / Volume Laterality Blood specimen 08/14/2017 8:07 AM 018 8:07 (specimen) EST AM EST Yonathan Smith MD POINT OF CARE TEST ORDERABLE S Performing Organization Address City/State/Z[place] [address] (ABNORMAL) Differential, Automated (08/14/2017 4:52 AM EST) Patholo gist Method Time Signature Neutrophils % 78.6 % [facility] Neutr Abs (ANC) 7.70 (H) 1.70 - [facility] 6.10 [facility] x10(3)/[facility] L LABORATORY Lymphocytes % 7.8 % [facility]ORY Lymphocytes Abs 0.8 (L) 0.9 - 3.2 [facility] x10(3)/[facility] LABORATORY Monocytes % 8.8 % [facility]ORY Monocyte Abs 0.9 0.3 - 0.9 [facility] x10(3)/[facility] LABORATORY Eosinophils % 4.0 % [facility] Eosinophils Abs 0.4 0.0 - 0.4 [facility] x10(3)/[facility] LABORATORY Basophils % 0.5 % [facility] Basophils Abs 0.0 0.0 - 0.1 [facility] x10(3)/[facility] LABORATORY Immature Gran % 0.30 [...] Melisa Gran Abs 0.03 0.00 - 0.04 x10(3)/[facility] LABORATORY Specimen Anatomical Collection Method Collection Time Receive d Time (Source) Location / / Volume Laterality Blood specimen 08/14/2017 4:52 AM 018 5:08 (specimen) EST AM EST Resulting Agency Comment Spec In Lab Yonathan Smith MD HEMATOLOGY ORDERABLES Performing Organization Address City/State/[place] [address] (ABNORMAL) Hemogram (08/14/2017 4:52 AM EST) Analysis Performed At Patho logist Time Signature WBC 9.8 (H) 4.0 - 9.5 [facility] x10(3)/[facility] LABORATORY RBC 3.32 (L) 4.58 - [facility] x10(6)/[facility] LABORATORY Hemoglobin 9.5 (L) 13.7 - [facility] 16.5 gm/dL [facility] Hematocrit 30.3 (L) 40.5 - [facility] 48.5 % [facility] MCV 91.3 82.9 - [facility] 93.1 [facility] LABORATORY MCH 28.6 27.5 - [facility] 32.1 pg [facility] MCHC 31.4 (L) 32.0 - [facility] 35.7 gm/dL [facility] Platelets 263 145 - 357 [facility] x10(3)/[facility] LABORATORY RDWSD 54.8 (H) 36.0 - [facility] 45.0 [facility] LABORATORY RDWCV 16.5 (H) 11.4 - [facility] 13.8 % [facility] LABORATORY MPV 9.1 7.6 - 12.9 [facility] LABORATORY nRBC % Auto 0.0 % [facility] LABOR[facility]ORY nRBC Abs Auto 0.000 0.000 - [facility] 0.000 [facility] x10(3)/[facility] LABORATORY Specimen Anatomical Collection Method Collection Time Receive d Time (Source) Location / / Volume Laterality Blood specimen 08/14/2017 4:52 AM 018 5:08 (specimen) EST AM EST Resulting Agency Comment Spec In Lab Yonathan Smith MD HEMATOLOGY ORDERABLES Performing Organization Address City/State/[place] [address] (ABNORMAL) Prothrombin Time (08/14/2017 [...] Organization Address City/State/[place] [address] (ABNORMAL) Basic Metabolic Panel (non-fasting) (08/14/2017 4:52 AM EST) P athologist Signature Glucose Lvl 135 65 - 199 [facility] mg/dL [facility] Comment: [...] or in patients with acute kidney failure. http://[employer]/DHnkdep http://[employer]/DHnkf Specimen Anatomical Collection Method Collection Time Receive d Time (Source) Location / / Volume Laterality Blood specimen 08/14/2017 4:52 AM 018 5:08 (specimen) EST AM EST Resulting Agency Comment Spec In Lab Yonathan Smith MD CHEMISTRY ORDERABLES Performing Organization Address City/State/Z[place] [address] POCT Glucose (08/14/2017 3:56 AM EST) P athologist Signature POC Glucose 135 65 - 199 [facility] mg/dL [facility] Comment: Supplemental ranges: <140 mg/dL before meals <180 mg/dL all other times of the day Specimen Anatomical Collection Method Collection Time Receive d Time (Source) Location / / Volume Laterality Blood specimen 08/14/2017 3:56 AM 018 3:56 (specimen) EST AM EST Yonathan Smith MD POINT OF CARE TEST ORDERABLE S Performing Organization Address City/State/ZIP Code Phon e Number [address] POCT Glucose (08/13/2017 11:13 PM EST) athologist Signature POC Glucose 118 65 - 199 [facility] mg/dL [facility] Comment: Supplemental ranges: <140 mg/dL before meals <180 mg/dL all other times of the day Specimen Anatomical Collection Method Collection Time Receive d Time (Source) Location / / Volume Laterality Blood specimen 08/13/2017 11:13 8 (specimen) PM EST 11:13 PM EST Yonathan Smith MD POINT OF CARE TEST ORDERABLE S Performing Organization Address City/[facility]/ZIP [place] [address] (ABNORMAL) POCT Glucose (08/13/2017 8:08 PM EST) athologist Signature POC Glucose 204 (H) 65 - 199 [facility] mg/dL [facility] Comment: Supplemental ranges: <140 mg/dL before meals <180 mg/dL all other times of the day Specimen Anatomical Collection Method Collection Time Receive d Time (Source) Location / / Volume Laterality Blood specimen 08/13/2017 8:08 PM 018 8:08 (specimen) EST PM EST Yonathan Smith MD POINT OF CARE TEST ORDERABLE S Performing Organization Address City/State/Z[place] [address] POCT Glucose (08/13/2017 4:02 PM EST) athologist Signature POC Glucose 145 65 - 199 [facility] mg/dL [facility] Comment: Supplemental ranges: <140 mg/dL before meals <180 mg/dL all other times of the day Specimen Anatomical Collection Method Collection Time Receive d Time (Source) Location / / Volume Laterality Blood specimen 08/13/2017 4:02 PM 018 4:02 (specimen) EST PM EST Yonathan Smith MD POINT OF CARE TEST ORDERABLE S Performing Organization Address City/State/Z[place] [address] POCT Glucose (08/13/2017 11:31 AM EST) athologist Signature POC Glucose 179 65 - 199 [facility] mg/dL [facility] Comment: Supplemental ranges: <140 mg/dL before meals <180 mg/dL all other times of the day Specimen Anatomical Collection Method Collection Time Receive d Time (Source) Location / / Volume Laterality Blood specimen 08/13/2017 11:31 8 (specimen) AM EST 11:31 AM EST Yonathan Smith MD POINT OF CARE TEST ORDERABLE S Performing Organization Address City/[facility]/ZIP [place] [address] (ABNORMAL) POCT Glucose (08/13/2017 10:16 AM EST) athologist Signature POC Glucose 211 (H) 65 - 199 [facility] mg/dL [facility] Comment: Supplemental ranges: <140 mg/dL before meals <180 mg/dL all other times of the day Specimen Anatomical Collection Method Collection Time Receive d Time (Source) Location / / Volume Laterality Blood specimen 08/13/2017 10:16 8 (specimen) AM EST 10:16 AM EST Yonathan Smith MD POINT OF CARE TEST ORDERABLE S Performing Organization Address City/[facility]/Z[place] [address] JULIAN, legs, multiple levels (08/13/2017 7:42 AM EST) Component Value Ref Test Analysis Performed At Patholo gist Range Method Time Signature VB Text Department: Vascular Surgery Lab VASCUBASE Report Patient: [id number] (GREGORY HOANG) CPT: 76286 ICD10: I99.8 Referring Physician: YONATHAN SMITH ?? Indications: s/p R 1,2,3 toe amps with red left foot, need n ew baseline Diabetes mellitus: yes ICD10 Diagnosis Code: I99.8 Findings: Right ?Pressure (mm Hg) ?? JULIAN ??Waveform ?TBI ?? Brachial Artery ?138 ? Dorsalis Pedis (Ankle) Arter y ?132 ? 0.94 ??Nash- Biphasic ? Posterior Tibial (Ankle) Art anila ??154 ? 1.10 ??Nash-Biphasic ? Fourth Toe ? 67 ? 0.48 [...] Signature POC Glucose 156 65 - 199 [facility] mg/dL [facility] Comment: Supplemental ranges: <140 mg/dL before meals <180 mg/dL all other times of the day Specimen Anatomical Collection Method Collection Time Receive d Time (Source) Location / / Volume Laterality Blood specimen 08/13/2017 7:33 AM 018 7:33 (specimen) EST AM EST Yonathan Smith MD POINT OF CARE TEST ORDERABLE S Performing Organization Address City/State/ZIP Code Phon e Number [place] [id number] (ABNORMAL) Differential, Automated (08/13/2017 5:33 AM EST) [facility] Method Time Signature Neutrophils % 77.8 % [facility]OR[facility]ORY Neutr Abs (ANC) 7.83 (H) 1.70 - [facility] 6.10 [facility] x10(3)/[facility] L LABORATORY Lymphocytes % 8.4 % [facility] LABORATORY Lymphocytes Abs 0.8 (L) 0.9 - 3.2 [facility] x10(3)/[facility] LABORATORY Monocytes % 8.3 % [facility] LABORATORY Monocyte Abs 0.8 0.3 - 0.9 [facility] x10(3)/[facility] LABORATORY Eosinophils % 4.6 % [facility]ORATORY Eosinophils Abs 0.5 (H) 0.0 - 0.4 [facility] x10(3)/[facility] LABORATORY Basophils % 0.5 % [facility] LABORATORY Basophils Abs 0.0 0.0 - 0.1 [facility] x10(3)/[facility] LABORATORY Immature Gran % 0.40 [...] 0.04 0.00 - 0.04 x10(3)/[facility] LABORATORY Specimen Anatomical Collection Method Collection Time Receive d Time (Source) Location / / Volume Laterality Blood specimen 08/13/2017 5:33 AM 018 6:04 (specimen) EST AM EST Resulting Agency Comment Spec In Lab Yonathan Smith MD HEMATOLOGY ORDERABLES Performing Organization Address City/State/Z[place] [address] (ABNORMAL) Hemogram (08/13/2017 5:33 AM EST) Analysis Performed At Patho logist Time Signature WBC 10.1 (H) 4.0 - 9.5 [facility] x10(3)/[facility] LABORATORY RBC 3.21 (L) 4.58 - [facility] 5.54 [facility] x10(6)/[facility] LABORATORY Hemoglobin 9.2 (L) 13.7 - [facility] gm/dL [facility]ORATORY Hematocrit 29.6 (L) 40.5 - [facility] 48.5 % [facility] LABORATORY MCV 92.2 82.9 - [facility] 93.1 [facility] LABORATORY MCH 28.7 27.5 - [facility] pg [facility] LABORATORY MCHC 31.1 (L) 32.0 - [facility] 35.7 gm/dL [facility] LABORATORY Platelets 263 145 - 357 [facility] x10(3)/[facility] LABORATORY RDWSD 54.8 (H) 36.0 - [facility] 45.0 [facility] LABORATORY RDWCV 16.4 (H) 11.4 - [facility] 13.8 % [facility] LABORATORY MPV 9.2 7.6 - 12.9 [facility] LABORATORY nRBC % Auto 0.0 % [facility] LABORATORY nRBC Abs Auto 0.000 0.000 - [facility] 0.000 [facility] x10(3)/[facility] LABORATORY Specimen Anatomical Collection Method Collection Time Receive d Time (Source) Location / / Volume Laterality Blood specimen 08/13/2017 5:33 AM 018 6:04 (specimen) EST AM EST Resulting Agency Comment Spec In Lab Yonathan Smith MD HEMATOLOGY ORDERABLES Performing Organization Address City/State/[place] [address] (ABNORMAL) Prothrombin Time (08/13/2017 [...] Organization Address City/State/[place] [address] (ABNORMAL) Basic Metabolic Panel (non-fasting) (08/13/2017 5:33 AM EST) athologist Signature Glucose Lvl 126 65 - 199 [facility] mg/dL [facility] LABORATORY Comment: [...] LABORATORY Estimated GFR >60 >=60 [facility] LABORATORY Comment: The reported eGFR should be multiplied b y 1.2 for patients. The MDRD is not an appropriate measure o f renal function for patients with body mass extremes or in patients with acute kidney failure. http://[employer]/DHnkdep http://[employer]/DHMCnkf Specimen Anatomical Collection Method Collection Time Receive d Time (Source) Location / / Volume Laterality Blood specimen 08/13/2017 5:33 AM 018 6:04 (specimen) EST AM EST Resulting Agency Comment Spec In Lab Yonathan Smith MD CHEMISTRY ORDERABLES Performing Organization Address City/[facility]/ZIP Code Phon e Number [address] POCT Glucose (08/13/2017 4:29 AM EST) athologist Signature POC Glucose 111 65 - 199 [facility]dL [facility] Comment: Supplemental ranges: <140 mg/dL before meals <180 mg/dL all other times of the day Specimen Anatomical Collection Method Collection Time Receive d Time (Source) Location / / Volume Laterality Blood specimen 08/13/2017 4:29 AM 018 4:29 (specimen) EST AM EST Yonathan Smith MD POINT OF CARE TEST ORDERABLE S Performing Organization Address City/[facility]/ZIP Code Phon e Number [address] POCT Glucose (08/12/2017 11:28 PM EST) athologist Signature POC Glucose 164 65 - 199 [facility] mg/dL [facility] Comment: Supplemental ranges: <140 mg/dL before meals <180 mg/dL all other times of the day Specimen Anatomical Collection Method Collection Time Receive d Time (Source) Location / / Volume Laterality Blood specimen 08/12/2017 11:28 8 (specimen) PM EST 11:28 PM EST Yonathan Smith MD POINT OF CARE TEST ORDERABLE S Performing Organization Address City/[facility]/Z[place] [address] (ABNORMAL) POCT Glucose (08/12/2017 7:40 PM EST) athologist Signature POC Glucose 209 (H) 65 - 199 [facility] mg/dL [facility] LABORATORY Comment: Supplemental ranges: <140 mg/dL before meals <180 mg/dL all other times of the day Specimen Anatomical Collection Method Collection Time Receive d Time (Source) Location / / Volume Laterality Blood specimen 08/12/2017 7:40 PM 018 7:40 (specimen) EST PM EST Yonathan Smith MD POINT OF CARE TEST ORDERABLE S Performing Organization Address City/State/ZIP Code Phon e Number [address] POCT Glucose (08/12/2017 4:24 PM EST) athologist Signature POC Glucose 161 65 - 199 [facility] mg/dL [facility] LABORATORY Comment: Supplemental ranges: <140 mg/dL before meals <180 mg/dL all other times of the day Specimen Anatomical Collection Method Collection Time Receive d Time (Source) Location / / Volume Laterality Blood specimen 08/12/2017 4:24 PM 018 4:24 (specimen) EST PM EST Yonathan Smith MD POINT OF CARE TEST ORDERABLE S Performing Organization Address City/State/Z[place] [address] POCT Glucose (08/12/2017 12:00 PM EST) athologist Signature POC Glucose 167 65 - 199 [facility] mg/dL [facility] LAB[facility]ORY Comment: Supplemental ranges: <140 mg/dL before meals <180 mg/dL all other times of the day Specimen Anatomical Collection Method Collection Time Receive d Time (Source) Location / / Volume Laterality Blood specimen 08/12/2017 12:00 8 (specimen) PM EST 12:00 PM EST Yonathan Smith MD POINT OF CARE TEST ORDERABLE S Performing Organization Address City/State/Z[place] [address] POCT Glucose (08/12/2017 7:25 AM EST) P athologist Signature POC Glucose 152 65 - 199 [facility] mg/dL [facility]OR[facility] Comment: Supplemental ranges: <140 mg/dL before meals <180 mg/dL all other times of the day Specimen Anatomical Collection Method Collection Time Receive d Time (Source) Location / / Volume Laterality Blood specimen 08/12/2017 7:25 AM 018 7:25 (specimen) EST AM EST Yonathan Smith MD POINT OF CARE TEST ORDERABLE S Performing Organization Address City/State/ZIP Code Phon e Number [place] [id number]ORY [address] (ABNORMAL) Differential, Automated (08/12/2017 6:29 AM EST) Patholo gist Method Time Signature Neutrophils % 78.7 % [facility] LABORATORY Neutr Abs (ANC) 7.94 (H) 1.70 - [facility] 6.10 [facility] x10(3)/[facility] LABORATORY Lymphocytes % 8.8 % [facility]OR[facility]ORY Lymphocytes Abs 0.9 0.9 - 3.2 [facility] x10(3)/[facility] LABORATORY Monocytes % 7.8 % [facility]OR[facility]ORY Monocyte Abs 0.8 0.3 - 0.9 [facility] x10(3)/[facility] LABORATORY Eosinophils % 3.9 % [facility]OR[facility]ORY Eosinophils Abs 0.4 0.0 - 0.4 [facility] x10(3)/[facility] LABORATORY Basophils % 0.3 % [facility]ORATORY Basophils Abs 0.0 0.0 - 0.1 [facility] x10(3)/[facility] LABORATORY Immature Gran % 0.50 [...] Organization Address City/State/[place] [address] (ABNORMAL) Hemogram (08/12/2017 6:29 AM EST) Analysis Performed At Patho logist Time Signature WBC 10.1 (H) 4.0 - 9.5 [facility] x10(3)/[facility] LABORATORY RBC 3.02 (L) 4.58 - [facility] x10(6)/[facility] LABORATORY Hemoglobin 8.7 (L) 13.7 - [facility] 16.5 gm/dL [facility] Hematocrit 28.1 (L) 40.5 - [facility] 48.5 % [facility] MCV 93.0 82.9 - [facility] 93.1 [facility] LABORATORY MCH 28.8 27.5 - [facility] 32.1 pg [facility] MCHC 31.0 (L) 32.0 - [facility] 35.7 gm/dL [facility] Platelets 223 145 - 357 [facility] x10(3)/[facility] LABORATORY RDWSD 56.1 (H) 36.0 - [facility] R[facility] 45.0 [facility] LABORATORY RDWCV 16.4 (H) 11.4 - [facility] R[facility]AN 13.8 % [facility] MPV 9.0 7.6 - 12.9 [facility] LABORATORY nRBC % Auto 0.0 % [facility]OR[facility]ORY nRBC Abs Auto 0.000 0.000 - [facility] 0.000 [facility] x10(3)/[facility] LABORATORY Specimen Anatomical Collection Method Collection Time Receive d Time (Source) Location / / Volume Laterality Blood specimen 08/12/2017 6:29 AM 018 6:38 (specimen) EST AM EST Resulting Agency Comment Spec In Lab Yonathan Smith MD HEMATOLOGY ORDERABLES Performing Organization Address City/[facility]/[place]IP [place] [address] (ABNORMAL) Prothrombin Time (08/12/2017 [...] Address City/State/[place] [address] (ABNORMAL) Basic Metabolic Panel (non-fasting) (08/12/2017 6:29 AM EST) athologist Signature Glucose Lvl 151 65 - 199 [facility] mg/dL [facility] Comment: [...] or in patients with acute kidney failure. [email or web address] [email or web address] Specimen Anatomical Collection Method Collection Time Receive d Time (Source) Location / / Volume Laterality Blood specimen 08/12/2017 6:29 AM 018 6:38 (specimen) EST AM EST Resulting Agency Comment Spec In Lab Yonathan Smith MD CHEMISTRY ORDERABLES Performing Organization Address City/[facility]/ZIP [place] [address] POCT Glucose (08/12/2017 4:08 AM EST) athologist Signature POC Glucose 181 65 - 199 [facility]dL [facility] Comment: Supplemental ranges: <140 mg/dL before meals <180 mg/dL all other times of the day Specimen Anatomical Collection Method Collection Time Receive d Time (Source) Location / / Volume Laterality Blood specimen 08/12/2017 4:08 AM 018 4:08 (specimen) EST AM EST Yonathan Smith MD POINT OF CARE TEST ORDERABLE S Performing Organization Address City/[facility]/[place] [address] (ABNORMAL) POCT Glucose (08/12/2017 12:17 AM EST) athologist Signature POC Glucose 221 (H) 65 - 199 [facility]dL [facility] Comment: Supplemental ranges: <140 mg/dL before meals <180 mg/dL all other times of the day Specimen Anatomical Collection Method Collection Time Receive d Time (Source) Location / / Volume Laterality Blood specimen 08/12/2017 12:17 8 (specimen) AM EST 12:17 AM EST Yonathan Smith MD POINT OF CARE TEST ORDERABLE S Performing Organization Address City/[facility]/Z[place] [address] (ABNORMAL) POCT Glucose (08/11/2017 8:52 PM EST) athologist Signature POC Glucose 221 (H) 65 - 199 [facility] mg/dL [facility] Comment: Supplemental ranges: <140 mg/dL before meals <180 mg/dL all other times of the day Specimen Anatomical Collection Method Collection Time Receive d Time (Source) Location / / Volume Laterality Blood specimen 08/11/2017 8:52 PM 018 8:52 (specimen) EST PM EST Yonathan Smith MD POINT OF CARE TEST ORDERABLE S Performing Organization Address City/[facility]/Z[place] [address] POCT Glucose (08/11/2017 5:59 PM EST) athologist Signature POC Glucose 169 65 - 199 [facility] mg/dL [facility] Comment: Supplemental ranges: <140 mg/dL before meals <180 mg/dL all other times of the day Specimen Anatomical Collection Method Collection Time Receive d Time (Source) Location / / Volume Laterality Blood specimen 08/11/2017 5:59 PM 018 5:59 (specimen) EST PM EST Yonathan Smith MD POINT OF CARE TEST ORDERABLE S Performing Organization Address City/State/[place] [address] (ABNORMAL) POCT Glucose (08/11/2017 4:08 PM EST) athologist Signature POC Glucose 240 (H) 65 - 199 [facility] mg/dL [facility] Comment: Supplemental ranges: <140 mg/dL before meals <180 mg/dL all other times of the day Specimen Anatomical Collection Method Collection Time Receive d Time (Source) Location / / Volume Laterality Blood specimen 08/11/2017 4:08 PM 018 4:08 (specimen) EST PM EST Yonathan Smith MD POINT OF CARE TEST ORDERABLE S Performing Organization Address City/[facility]/ZIP Code Phon e Number [address] POCT Glucose (08/11/2017 12:04 PM EST) athologist Signature POC Glucose 182 65 - 199 [facility] Comment: Supplemental ranges: <140 mg/dL before meals <180 mg/dL all other times of the day Specimen Anatomical Collection Method Collection Time Receive d Time (Source) Location / / Volume Laterality Blood specimen 08/11/2017 12:04 8 (specimen) PM EST 12:04 PM EST Yonathan Smith MD POINT OF CARE TEST ORDERABLE S Performing Organization Address City/[facility]/ZIP Code Phon e Number [address] POCT Glucose (08/11/2017 7:31 AM EST) athologist Signature POC Glucose 156 65 - 199 [facility]dL [facility] Comment: Supplemental ranges: <140 mg/dL before meals <180 mg/dL all other times of the day Specimen Anatomical Collection Method Collection Time Receive d Time (Source) Location / / Volume Laterality Blood specimen 08/11/2017 7:31 AM 018 7:31 (specimen) EST AM EST Yonathan Smith MD POINT OF CARE TEST ORDERABLE S Performing Organization Address City/[facility]/ZIP Code Phon e Number [address] (ABNORMAL) Differential, Automated (08/11/2017 6:16 AM EST) [facility] Method Time Signature Neutrophils % 83.7 % [facility]OR[facility]ORY Neutr Abs (ANC) 10.76 (H) 1.70 - [facility] 6.10 [facility] x10(3[facility] LABORATORY Lymphocytes % 6.0 % [facility]ORY Lymphocytes Abs 0.8 (L) 0.9 - 3.2 [facility] x10(3)/[facility] LABORATORY Monocytes % 7.5 % [facility]OR[facility]ORY Monocyte Abs 1.0 (H) 0.3 - 0.9 [facility] x10(3)/[facility] LABORATORY Eosinophils % 2.0 % [facility]OR[facility]ORY Eosinophils Abs 0.3 0.0 - 0.4 [facility] x10(3)/[facility] LABORATORY Basophils % 0.3 % [facility]ORATORY Basophils Abs 0.0 0.0 - 0.1 [facility] x10(3)/[facility] LABORATORY Immature Gran % 0.50 [...] Organization Address City/State/[place] [address] (ABNORMAL) Hemogram (08/11/2017 6:16 AM EST) Analysis Performed At Patho logist Time Signature WBC 12.9 (H) 4.0 - 9.5 [facility] x10(3)/[facility] LABORATORY RBC 3.28 (L) 4.58 - [facility] 5.54 [facility] x10(6)/[facility] LABORATORY Hemoglobin 9.5 (L) 13.7 - [facility] 16.5 gm/dL [facility] Hematocrit 29.8 (L) 40.5 - [facility] 48.5 % [facility] LABORATORY MCV 90.9 82.9 - [facility] 93.1 [facility] LABORATORY MCH 29.0 27.5 - [facility] 32.1 pg [facility] MCHC 31.9 (L) 32.0 - [facility] 35.7 gm/dL [facility] Platelets 236 145 - 357 [facility] x10(3)/[facility] LABORATORY RDWSD 53.5 (H) 36.0 - [facility] 45.0 [facility] LABORATORY RDWCV 16.3 (H) 11.4 - [facility] 13.8 % [facility] LABORATORY MPV 8.8 7.6 - 12.9 [facility] LABORATORY nRBC % Auto 0.0 % [facility] LABORATORY nRBC Abs Auto 0.000 0.000 - [facility] 0.000 [facility] x10(3)/[facility] LABORATORY Specimen Anatomical Collection Method Collection Time Receive d Time (Source) Location / / Volume Laterality Blood specimen 08/11/2017 6:16 AM 018 6:24 (specimen) EST AM EST Resulting Agency Comment Spec In Lab Yonathan Smith MD HEMATOLOGY ORDERABLES Performing Organization Address City/State/[place] [address] (ABNORMAL) Prothrombin Time (08/11/2017 [...] Organization Address City/State/[place] [address] Basic Metabolic Panel (non-fasting) (08/11/2017 6:16 AM EST) P athologist Signature Glucose Lvl 139 65 - 199 [facility] mg/dL [facility] Comment: [...] or in patients with acute kidney failure. http://[employer]Types[employer]/DHnkdep http://[employer]/DHMCnkf Specimen Anatomical Collection Method Collection Time Receive d Time (Source) Location / / Volume Laterality Blood specimen 08/11/2017 6:16 AM 018 6:24 (specimen) EST AM EST Resulting Agency Comment Spec In Lab Yonathan Smith MD CHEMISTRY ORDERABLES Performing Organization Address City/State/ZIP Code Phon e Number [address] POCT Glucose (08/11/2017 4:07 AM EST) athologist Signature POC Glucose 162 65 - 199 [facility] mg/dL [facility] Comment: Supplemental ranges: <140 mg/dL before meals <180 mg/dL all other times of the day Specimen Anatomical Collection Method Collection Time Receive d Time (Source) Location / / Volume Laterality Blood specimen 08/11/2017 4:07 AM 018 4:07 (specimen) EST AM EST Yonathan Smith MD POINT OF CARE TEST ORDERABLE S Performing Organization Address City/[facility]/ZIP Code Phon e Number [address] POCT Glucose (08/10/2017 11:59 PM EST) athologist Signature POC Glucose 166 65 - 199 [facility] mg/dL [facility] Comment: Supplemental ranges: <140 mg/dL before meals <180 mg/dL all other times of the day Specimen Anatomical Collection Method Collection Time Receive d Time (Source) Location / / Volume Laterality Blood specimen 08/10/2017 11:59 8 (specimen) PM EST 11:59 PM EST Yonathan Smith MD POINT OF CARE TEST ORDERABLE S Performing Organization Address City/State/ZIP Code Phon e Number [address] POCT Glucose (08/10/2017 8:12 PM EST) athologist Signature POC Glucose 156 65 - 199 [facility] mg/dL [facility] Comment: Supplemental ranges: <140 mg/dL before meals <180 mg/dL all other times of the day Specimen Anatomical Collection Method Collection Time Receive d Time (Source) Location / / Volume Laterality Blood specimen 08/10/2017 8:12 PM 018 8:12 (specimen) EST PM EST Yonathan Smith MD POINT OF CARE TEST ORDERABLE S Performing Organization Address City/State/ZIP Code Phon e Number [place] [id number]OS[address] LAB[address]ORY Drive (ABNORMAL) POCT Glucose (08/10/2017 4:42 PM EST) P athologist Signature POC Glucose 211 (H) 65 - 199 [facility] Comment: Supplemental ranges: <140 mg/dL before meals <180 mg/dL all other times of the day Specimen Anatomical Collection Method Collection Time Receive d Time (Source) Location / / Volume Laterality Blood specimen 08/10/2017 4:42 PM 018 4:42 (specimen) EST PM EST Yonathan Smith MD POINT OF CARE TEST ORDERABLE S Performing Organization Address City/State/ZIP Code Phon e Number [address] (ABNORMAL) Differential, Automated (08/10/2017 2:30 PM EST) Patholo gist Method Time Signature Neutrophils % 87.6 % [facility] LABORATORY Neutr Abs (ANC) 9.90 (H) 1.70 - [facility] 6.10 [facility] x10(3)/[facility] L LABORATORY Lymphocytes % 4.3 % [facility] LABORATORY Lymphocytes Abs 0.5 (L) 0.9 - 3.2 [facility] x10(3)/[facility] LABORATORY Monocytes % 6.0 % [facility] LABORATORY Monocyte Abs 0.7 0.3 - 0.9 [facility] x10(3)/[facility] LABORATORY Eosinophils % 1.1 % [facility] LABORATORY Eosinophils Abs 0.1 0.0 - 0.4 [facility] x10(3)/[facility] LABORATORY Basophils % 0.4 % [facility]ORATORY Basophils Abs 0.0 0.0 - 0.1 [facility] x10(3)/[facility] LABORATORY Immature Gran % 0.60 [...] Organization Address City/State/Z[place] [address] (ABNORMAL) Hemogram (08/10/2017 2:30 PM EST) Analysis Performed At Patho logist Time Signature WBC 11.3 (H) 4.0 - 9.5 [facility] x10(3)/[facility] LABORATORY RBC 3.13 (L) 4.58 - [facility] x10(6)/[facility] LABORATORY Hemoglobin 8.9 (L) 13.7 - [facility]m/dL [facility]ORY Hematocrit 28.4 (L) 40.5 - [facility] 48.5 % [facility]ORY MCV 90.7 82.9 - [facility] 93.1 [facility] LABORATORY MCH 28.4 27.5 - [facility] 32.1 pg [facility]ORY MCHC 31.3 (L) 32.0 - [facility] 35.7 gm/dL [facility]ORY Platelets 213 145 - 357 [facility] x10(3)/[facility] LABORATORY RDWSD 53.7 (H) 36.0 - [facility] 45.0 [facility] LABORATORY RDWCV 16.4 (H) 11.4 - [facility] 13.8 % [facility] LABORATORY MPV 8.9 7.6 - 12.9 [facility] LABORATORY nRBC % Auto 0.0 % [facility] LABORATORY nRBC Abs Auto 0.000 0.000 - [facility] [employer] 0.000 [facility] x10(3)/[facility] LABORATORY Specimen Anatomical Collection Method Collection Time Receive d Time (Source) Location / / Volume Laterality Blood specimen 08/10/2017 2:30 PM 018 2:48 (specimen) EST PM EST Resulting Agency Comment Spec In Lab Yonathan Smith MD HEMATOLOGY ORDERABLES Performing Organization Address City/[facility]/ZIP Code Phon e Number [address] (ABNORMAL) POCT Glucose (08/10/2017 1:50 PM EST) athologist Signature POC Glucose 243 (H) 65 - 199 [facility] Comment: Supplemental ranges: <140 mg/dL before meals <180 mg/dL all other times of the day Specimen Anatomical Collection Method Collection Time Receive d Time (Source) Location / / Volume Laterality Blood specimen 08/10/2017 1:50 PM 018 1:50 (specimen) EST PM EST Yonathan Smith MD POINT OF CARE TEST ORDERABLE S Performing Organization Address City/[facility]/ZIP Code Phon e Number [address] POCT Glucose (08/10/2017 11:21 AM EST) athologist Signature POC Glucose 156 65 - 199 [facility]dL [facility] Comment: Supplemental ranges: <140 mg/dL before meals <180 mg/dL all other times of the day Specimen Anatomical Collection Method Collection Time Receive d Time (Source) Location / / Volume Laterality Blood specimen 08/10/2017 11:21 8 (specimen) AM EST 11:21 AM EST Yonathan Smith MD POINT OF CARE TEST ORDERABLE S Performing Organization Address City/[facility]/ZIP Code Phon e Number [address] (ABNORMAL) Differential, Automated (08/10/2017 10:28 AM EST) [facility] Method Time Signature Neutrophils % 85.3 % [facility] LABORATORY Neutr Abs (ANC) 9.43 (H) 1.70 - [facility] 6.10 [facility] x10(3)/[facility] L LABORATORY Lymphocytes % 5.5 % [facility] LABORATORY Lymphocytes Abs 0.6 (L) 0.9 - 3.2 [facility] x10(3)/[facility] LABORATORY Monocytes % 5.9 % [facility] LABORATORY Monocyte Abs 0.6 0.3 - 0.9 [facility] x10(3)/[facility] LABORATORY Eosinophils % 2.1 % [facility] LABORATORY Eosinophils Abs 0.2 0.0 - 0.4 [facility] x10(3)/[facility] LABORATORY Basophils % 0.4 % [facility] LABORATORY Basophils Abs 0.0 0.0 - 0.1 [facility] x10(3)/[facility] LABORATORY Immature Gran % 0.80 [...] Organization Address City/State/[place] [address] (ABNORMAL) Hemogram (08/10/2017 10:28 AM EST) Analysis Performed At Patho logist Time Signature WBC 11.0 (H) 4.0 - 9.5 [facility] x10(3)/[facility] LABORATORY RBC 3.02 (L) 4.58 - [facility] 5.54 [facility] x10(6)/[facility] LABORATORY Hemoglobin 8.8 (L) 13.7 - [facility] 16.5 gm/dL [facility] LABORATORY Hematocrit 28.1 (L) 40.5 - [facility] 48.5 % [facility] LABORATORY MCV 93.0 82.9 - [facility] 93.1 [facility] LABORATORY MCH 29.1 27.5 - [facility] 32.1 pg [facility] LABORATORY MCHC 31.3 (L) 32.0 - [facility] 35.7 gm/dL [facility] LABORATORY Platelets 207 145 - 357 [facility] x10(3)/[facility] LABORATORY RDWSD 55.3 (H) 36.0 - [facility] 45.0 [facility] LABORATORY RDWCV 16.4 (H) 11.4 - [facility] 13.8 % [facility] LABORATORY MPV 9.0 7.6 - 12.9 [facility] LABORATORY nRBC % Auto 0.0 % [facility] nRBC Abs Auto 0.000 0.000 - [facility] 0.000 [facility] x10(3)/[facility] LABORATORY Specimen Anatomical Collection Method Collection Time Receive d Time (Source) Location / / Volume Laterality Blood specimen 08/10/2017 10:28 8 (specimen) AM EST 10:35 AM EST Resulting Agency Comment Spec In Lab Yonathan Smith MD HEMATOLOGY ORDERABLES Performing Organization Address City/State/[place] [address] VS Angiogram/intervention (vascular) (08/10/2017 [...] 2.5x80 5. Completion RLE angiogram 6. L [employer] angiogram 7. 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 - L [employer] angriogram demonstrated: High fe moral bifurcation over the proximal half of the femoral head. L [employer] access in the distal L [employer]. - Closure device: Mynx Technical Procedure: ?The [...] for a 45cm 5F Destination. V18 and Summit a nd QuickCross catheters were used to [...] bifurcation. Access appeared in the distal R [employer]. Closure and sheath removal was performed with [...] 2.5x80 5. Completion RLE angiogram 6. L [employer] angiogram 7. 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 - L [employer] angriogram demonstrated: High fe moral bifurcation over the proximal half of the femoral head. L [employer] access in the distal L [employer]. - Closure device: Mynx Technical Procedure: The [...] for a 45cm 5F Destination. V18 and Summit a nd QuickCross catheters were used to [...] bifurcation. Access appeared in the distal R [employer]. Closure and sheath removal was performed with [...] (ABNORMAL) Differential, Automated (08/10/2017 5:50 AM EST) [facility] Method Time Signature Neutrophils % 80.1 % [facility] LABORATORY Neutr Abs (ANC) 9.01 (H) 1.70 - [facility] 6.10 [facility] x10(3)/[facility] LABORATORY Lymphocytes % 8.8 % [facility] LABORATORY Lymphocytes Abs 1.0 0.9 - 3.2 [facility] x10(3)/[facility] LABORATORY Monocytes % 8.3 % [facility] LABORATORY Monocyte Abs 0.9 0.3 - 0.9 [facility] x10(3)/[facility] LABORATORY Eosinophils % 2.0 % [facility] LABORATORY Eosinophils Abs 0.2 0.0 - 0.4 [facility] x10(3)/[facility] LABORATORY Basophils % 0.4 % [facility] LABORATORY Basophils Abs 0.0 0.0 - 0.1 [facility] x10(3)/[facility] LABORATORY Immature Gran % 0.40 [...] Address City/State/[place] [address] (ABNORMAL) Hemogram (08/10/2017 5:50 AM EST) Analysis Performed At Patho logist Time Signature WBC 11.3 (H) 4.0 - 9.5 [facility] x10(3)/[facility] LABORATORY RBC 3.15 (L) 4.58 - [place] RYAN 5.54 [facility] x10(6)/[facility] LABORATORY Hemoglobin 8.9 (L) 13.7 - [facility] 16.5 gm/dL [facility] LABORATORY Hematocrit 29.0 (L) 40.5 - [facility] RYAN 48.5 % [facility] LABORATORY MCV 92.1 82.9 - [facility] RYAN 93.1 [facility] LABORATORY MCH 28.3 27.5 - [facility] RYAN 32.1 pg [facility] LABORATORY MCHC 30.7 (L) 32.0 - [facility] RYAN 35.7 gm/dL [facility] LABORATORY Platelets 231 145 - 357 [facility] x[facility](3[facility] RDWSD 53.9 (H) 36.0 - [facility] RYAN 45.0 [facility] LABORATORY RDWCV 16.2 (H) 11.4 - [facility] RYAN 13.8 % [facility] LABORATORY MPV 8.7 7.6 - 12.9 [facility] LABORATORY nRBC % Auto 0.0 % [facility] LABORATORY nRBC Abs Auto 0.000 0.000 - [facility] 0.000 [facility] x10(3)/[facility] LABORATORY Specimen Anatomical Collection Method Collection Time Receive d Time (Source) Location / / Volume Laterality Blood specimen 08/10/2017 5:50 AM 018 5:59 (specimen) EST AM EST Resulting Agency Comment Spec In Lab Yonathan Smith MD HEMATOLOGY ORDERABLES Performing Organization Address City/State/[place] [address] (ABNORMAL) Basic Metabolic Panel (non-fasting) (08/10/2017 5:50 AM EST) P athologist Signature Glucose Lvl 135 65 - 199 [facility] mg/dL [facility] LABORATORY Comment: [...] or in patients with acute kidney failure. http://[employer]Typesafe/DHnkdep http://[employer].Typesafe/DHMCnkf Specimen Anatomical Collection Method Collection Time Receive d Time (Source) Location / / Volume Laterality Blood specimen 08/10/2017 5:50 AM 018 5:59 (specimen) EST AM EST Resulting Agency Comment Spec In Lab Yonathan Smith MD CHEMISTRY ORDERABLES Performing Organization Address [facility] [place] [address] (ABNORMAL) Prothrombin Time (08/10/2017 [...] HEMATOLOGY ORDERABLES Performing Organization Address City/[facility] [place] [address] (ABNORMAL) POCT Glucose (08/10/2017 4:01 AM EST) athologist Signature POC Glucose 206 (H) 65 - 199 [facility] mg/dL [facility] LABORATORY Comment: Supplemental ranges: <140 mg/dL before meals <180 mg/dL all other times of the day Specimen Anatomical Collection Method Collection Time Receive d Time (Source) Location / / Volume Laterality Blood specimen 08/10/2017 4:01 AM 018 4:01 (specimen) EST AM EST Yonathan Smith MD POINT OF CARE TEST ORDERABLE S Performing Organization Address City/State/ZIP Code Phon e Number [address] POCT Glucose (08/10/2017 2:01 AM EST) athologist Signature POC Glucose 188 65 - 199 [facility] mg/dL [facility] LABORATORY Comment: Supplemental ranges: <140 mg/dL before meals <180 mg/dL all other times of the day Specimen Anatomical Collection Method Collection Time Receive d Time (Source) Location / / Volume Laterality Blood specimen 08/10/2017 2:01 AM 018 2:01 (specimen) EST AM EST Yonathan Smith MD POINT OF CARE TEST ORDERABLE S Performing Organization Address City/[facility]/[place] [address] (ABNORMAL) POCT Glucose (08/09/2017 11:42 PM EST) athologist Signature POC Glucose 283 (H) 65 - 199 [facility] mg/dL [facility] LABORATORY Comment: Supplemental ranges: <140 mg/dL before meals <180 mg/dL all other times of the day Specimen Anatomical Collection Method Collection Time Receive d Time (Source) Location / / Volume Laterality Blood specimen 08/09/2017 11:42 8 (specimen) PM EST 11:42 PM EST Yonathan Smith MD POINT OF CARE TEST ORDERABLE S Performing Organization Address City/State/[place] [address] POCT Glucose (08/09/2017 8:55 PM EST) athologist Signature POC Glucose 182 65 - 199 [facility] mg/dL [facility] LABORATORY Comment: Supplemental ranges: <140 mg/dL before meals <180 mg/dL all other times of the day Specimen Anatomical Collection Method Collection Time Receive d Time (Source) Location / / Volume Laterality Blood specimen 08/09/2017 8:55 PM 018 8:55 (specimen) EST PM EST Yonathna Smith MD POINT OF CARE TEST ORDERABLE S Performing Organization Address City/[facility]/[place] [address] (ABNORMAL) APTT (08/09/2017 6:42 [...] HEMATOLOGY ORDERABLES Performing Organization Address City/[facility]/[place] [address] POCT Glucose (08/09/2017 4:41 PM EST) athologist Signature POC Glucose 195 65 - 199 [facility] mg/dL [facility] LABORATORY Comment: Supplemental ranges: <140 mg/dL before meals <180 mg/dL all other times of the day Specimen Anatomical Collection Method Collection Time Receive d Time (Source) Location / / Volume Laterality Blood specimen 08/09/2017 4:41 PM 018 4:41 (specimen) EST PM EST Yonathan Smith MD POINT OF CARE TEST ORDERABLE S Performing Organization Address City/[facility]/Z[place] [address] POCT Glucose (08/09/2017 12:29 PM EST) athologist Signature POC Glucose 140 65 - 199 [facility] mg/dL [facility] LABORATORY Comment: Supplemental ranges: <140 mg/dL before meals <180 mg/dL all other times of the day Specimen Anatomical Collection Method Collection Time Receive d Time (Source) Location / / Volume Laterality Blood specimen 08/09/2017 12:29 8 (specimen) PM EST 12:29 PM EST Yonathan Smith MD POINT OF CARE TEST ORDERABLE S Performing Organization Address [facility]/ZIP Code Phon e Number [address] POCT Glucose (08/09/2017 9:59 AM EST) P athologist Signature POC Glucose 135 65 - 199 [facility] mg/dL [facility] LABORATORY Comment: Supplemental ranges: <140 mg/dL before meals <180 mg/dL all other times of the day Specimen Anatomical Collection Method Collection Time Receive d Time (Source) Location / / Volume Laterality Blood specimen 08/09/2017 9:59 AM 018 9:59 (specimen) EST AM EST Yonathan Smith MD POINT OF CARE TEST ORDERABLE S Performing Organization Address [facility]/ZIP Code Phon e Number [address] Specimen to Pathology (08/09/2017 [...] City/[facility]/[place] [address] Surgical Pathology Report (08/09/2017 8:40 AM EST) Component Value Ref Test Analysis Performed At Patholo gist Range Method Time Signature Surgical [id number] ? Location: [facility]; [facility]; A [facility] Report The signing pathologist has (i) [...] Henrique Flower Verified: ??08/13/2017 ?Pathologist Performed at: ??-[facility] Dept. of Pathology, [place], [place] CLINICAL INFORMATION Specimen Submitted: A - [...] Organization Address City/State/[place] [address] Anaerobic Culture (08/09/2017 8:30 AM EST) [facility] ChargeBee Method Time Signature Anaerobic No anaerobic [facility] Culture organisms [facility] LABORATORY Specimen Anatomical Collection Method [...] ORDER ROBSON Performing Organization Address City/[facility]/[place] [address] (ABNORMAL) Abscess/Wound Aspirate Culture (08/09/2017 8:30 AM EST) [facility] Method Time Signature Abscess/Wound Moderate mixed [facility] Aspirate bacterial ROWE Culture morphotypes [facility] normal LABORATORY cutaneous leroy (A) Gram Stain Rare White Blood Cells [place] Few Gram Positive Cocci in pairs ROWE () [facility] LABORATORY Organism Gram Positive [place] Cocci in pairs ROWE () [facility] LABORATORY Specimen Anatomical Collection Method [...] ORDER ROBSON Performing Organization Address City/[facility]/ZIP Code Phon e Number [place] [id number]OS[address] POCT Glucose (08/09/2017 4:28 AM EST) P athologist Signature POC Glucose 128 65 - 199 [facility] mg/dL [facility] LABORATORY Comment: Supplemental ranges: <140 mg/dL before meals <180 mg/dL all other times of the day Specimen Anatomical Collection Method Collection Time Receive d Time (Source) Location / / Volume Laterality Blood specimen 08/09/2017 4:28 AM 018 4:28 (specimen) EST AM EST Yonathan Smith MD POINT OF CARE TEST ORDERABLE S Performing Organization Address City/State/[place] [address] ABORH Recheck Status (08/09/2017 1:10 AM EST) [facility] Method Time Signature ABORH Type Completed [facility] LABORATORY Specimen Anatomical Collection Method Collection Time Receive d Time (Source) Location / / Volume Laterality Blood specimen 08/09/2017 1:10 AM 018 1:35 (specimen) EST AM EST Resulting Agency Comment Spec In Lab Yonathan Smith MD BLOOD BANK ORDERABLES Performing Organization Address City/[facility]/[place] [address] Antibody screen (08/09/2017 1:10 AM EST) [facility] Method Time Signature Ab Screen Negative [facility] LABORATORY Expires at 08/12/2017 [facility] [id number] on: [facility] LABORATORY Specimen Anatomical Collection Method Collection Time Receive d Time (Source) Location / / Volume Laterality Blood specimen 08/09/2017 1:10 AM 018 1:35 (specimen) EST AM EST Resulting Agency Comment Spec In Lab Yonathan Smith MD BLOOD BANK ORDERABLES Performing Organization Address City/[facility]/[place] [address] ABO/Rh Typing (08/09/2017 1:10 [...] BANK ORDERABLES Performing Organization Address City/[facility]/[place] [address] (ABNORMAL) APTT (08/09/2017 1:10 [...] Organization Address City/State/[place] [address] (ABNORMAL) Differential, Automated (08/09/2017 1:10 AM EST) [facility] gist Method Time Signature Neutrophils % 76.2 % [facility] LABORATORY Neutr Abs (ANC) 8.59 (H) 1.70 - [facility] 6.10 [facility] x10(3)/[facility] LABORATORY Lymphocytes % 11.0 % [facility] LABORATORY Lymphocytes Abs 1.2 0.9 - 3.2 [facility] x10(3)/[facility] LABORATORY Monocytes % 8.4 % [facility] LABORATORY Monocyte Abs 1.0 (H) 0.3 - 0.9 [facility] x10(3)/[facility] LABORATORY Eosinophils % 3.5 % [facility] LABORATORY Eosinophils Abs 0.4 0.0 - 0.4 [facility] x10(3)/[facility] LABORATORY Basophils % 0.5 % [facility] LABORATORY Basophils Abs 0.1 0.0 - 0.1 [facility] x10(3)/[facility] LABORATORY Immature Gran % 0.40 [...] Organization Address City/State/[place] [address] (ABNORMAL) Hemogram (08/09/2017 1:10 AM EST) Analysis Performed At Patho logist Time Signature WBC 11.3 (H) 4.0 - 9.5 [facility] x10(3)/[facility] LABORATORY RBC 3.47 (L) 4.58 - [facility] 5.54 [facility] x10(6)/[facility] LABORATORY Hemoglobin 10.0 (L) 13.7 - [facility] 16.5 gm/dL [facility] LABORATORY Hematocrit 31.9 (L) 40.5 - [facility] 48.5 % [facility] LABORATORY MCV 91.9 82.9 - [facility] 93.1 [facility] LABORATORY MCH 28.8 27.5 - [facility] RYAN 32.1 pg [facility] LABORATORY MCHC 31.3 (L) 32.0 - [facility] 35.7 gm/dL [facility] LABORATORY Platelets 234 145 - 357 [facility] x10(3)/[facility] LABORATORY RDWSD 54.0 (H) 36.0 - [facility] RYAN 45.0 [facility] LABORATORY RDWCV 16.2 (H) 11.4 - [facility] 13.8 % [facility] LABORATORY MPV 8.7 7.6 - 12.9 [facility] LABORATORY nRBC % Auto 0.0 % [facility] LABORATORY nRBC Abs Auto 0.000 0.000 - [place] 0.000 [facility] x10(3)/[facility] LABORATORY Specimen Anatomical Collection Method Collection Time Receive d Time (Source) Location / / Volume Laterality Blood specimen 08/09/2017 1:10 AM 018 1:19 (specimen) EST AM EST Resulting Agency Comment Spec In Lab Yonathan Smith MD HEMATOLOGY ORDERABLES Performing Organization Address [facility] [place] [address] (ABNORMAL) Prothrombin Time (08/09/2017 [...] HEMATOLOGY ORDERABLES Performing Organization Address [facility] [place] [address] (ABNORMAL) Basic Metabolic Panel (non-fasting) (08/09/2017 1:10 AM EST) athologist Signature Glucose Lvl 108 65 - 199 [facility] mg/dL [facility] LABORATORY Comment: [...] or in patients with acute kidney failure. http://[employer]/DHnkdep http://[employer]/DHMCnkf Specimen Anatomical Collection Method Collection Time Receive d Time (Source) Location / / Volume Laterality Blood specimen 08/09/2017 1:10 AM 018 1:19 (specimen) EST AM EST Resulting Agency Comment Spec In Lab Yonathan Smith MD CHEMISTRY ORDERABLES Performing Organization Address City/State/ZIP Code Phon e Number [address] POCT Glucose (08/09/2017 12:05 AM EST) athologist Signature POC Glucose 128 65 - 199 [facility] mg/dL [facility] LABORATORY Comment: Supplemental ranges: <140 mg/dL before meals <180 mg/dL all other times of the day Specimen Anatomical Collection Method Collection Time Receive d Time (Source) Location / / Volume Laterality Blood specimen 08/09/2017 12:05 8 (specimen) AM EST 12:05 AM EST Yonathan Smith MD POINT OF CARE TEST ORDERABLE S Performing Organization Address City/State/[place] [address] (ABNORMAL) POCT Glucose (08/08/2017 7:36 PM EST) athologist Signature POC Glucose 215 (H) 65 - 199 [facility]dL [facility] LABORATORY Comment: Supplemental ranges: <140 mg/dL before meals <180 mg/dL all other times of the day Specimen Anatomical Collection Method Collection Time Receive d Time (Source) Location / / Volume Laterality Blood specimen 08/08/2017 7:36 PM 018 7:36 (specimen) EST PM EST Yonathan Smith MD POINT OF CARE TEST ORDERABLE S Performing Organization Address City/[facility]/[place] [address] (ABNORMAL) POCT Glucose (08/08/2017 6:23 PM EST) athologist Signature POC Glucose 216 (H) 65 - 199 [facility] mg/dL [facility] LABORATORY Comment: Supplemental ranges: <140 mg/dL before meals <180 mg/dL all other times of the day Specimen Anatomical Collection Method Collection Time Receive d Time (Source) Location / / Volume Laterality Blood specimen 08/08/2017 6:23 PM 018 6:23 (specimen) EST PM EST Yonathan Smith MD POINT OF CARE TEST ORDERABLE S Performing Organization Address City/[facility]/[place] [address] (ABNORMAL) APTT (08/08/2017 6:00 [...] HEMATOLOGY ORDERABLES Performing Organization Address City/[facility]/ZIP Code Phon [place] [address] POCT Glucose (08/08/2017 4:42 PM EST) athologist Signature POC Glucose 78 65 - 199 [facility] mg/dL [facility] LABORATORY Comment: Supplemental ranges: <140 mg/dL before meals <180 mg/dL all other times of the day Specimen Anatomical Collection Method Collection Time Receive d Time (Source) Location / / Volume Laterality Blood specimen 08/08/2017 4:42 PM 018 4:42 (specimen) EST PM EST Yonathan Smith MD POINT OF CARE TEST ORDERABLE S Performing Organization Address City/State/[place] [address] (ABNORMAL) POCT Glucose (08/08/2017 4:01 PM EST) athologist Signature POC Glucose 58 (L) 65 - 199 [facility] mg/dL [facility] LABORATORY Comment: Supplemental ranges: <140 mg/dL before meals <180 mg/dL all other times of the day Specimen Anatomical Collection Method Collection Time Receive d Time (Source) Location / / Volume Laterality Blood specimen 08/08/2017 4:01 PM 018 4:01 (specimen) EST PM EST Yonathan Smith MD POINT OF CARE TEST ORDERABLE S Performing Organization Address City/State/[place] [address] POCT Glucose (08/08/2017 11:51 AM EST) athologist Signature POC Glucose 90 65 - 199 [facility] mg/dL [facility] LABORATORY Comment: Supplemental ranges: <140 mg/dL before meals <180 mg/dL all other times of the day Specimen Anatomical Collection Method Collection Time Receive d Time (Source) Location / / Volume Laterality Blood specimen 08/08/2017 11:51 8 (specimen) AM EST 11:51 AM EST Yonathan Smith MD POINT OF CARE TEST ORDERABLE S Performing Organization Address City/State/[place] [address] (ABNORMAL) APTT (08/08/2017 10:27 [...] HEMATOLOGY ORDERABLES Performing Organization Address City/[facility]/ZIP Code Phon e Number [address] POCT Glucose (08/08/2017 8:02 AM EST) athologist Signature POC Glucose 178 65 - 199 [facility] mg/dL [facility] LABORATORY Comment: Supplemental ranges: <140 mg/dL before meals <180 mg/dL all other times of the day Specimen Anatomical Collection Method Collection Time Receive d Time (Source) Location / / Volume Laterality Blood specimen 08/08/2017 8:02 AM 018 8:02 (specimen) EST AM EST Yonathan Smith MD POINT OF CARE TEST ORDERABLE S Performing Organization Address City/[facility]/[place] [address] (ABNORMAL) APTT (08/08/2017 4:51 AM EST) athologist Signature PTT >160 25 - 35 [facility] (Critical) sec [facility] LABORATORY Comment: Called by: HOWARD, Read [...] Organization Address City/State/[place] [address] (ABNORMAL) Differential, Automated (08/08/2017 4:51 AM EST) [facility] gist Method Time Signature Neutrophils % 77.9 % [facility] LABORATORY Neutr Abs (ANC) 8.17 (H) 1.70 - [facility] 6.10 [facility] x10(3)/[facility] LABORATORY Lymphocytes % 10.3 % [facility] LABORATORY Lymphocytes Abs 1.1 0.9 - 3.2 [facility] x10(3)/[facility] LABORATORY Monocytes % 7.0 % [facility] LABORATORY Monocyte Abs 0.7 0.3 - 0.9 [facility] x10(3)/[facility] LABORATORY Eosinophils % 3.6 % [facility] LABORATORY Eosinophils Abs 0.4 0.0 - 0.4 [facility] x10(3)/[facility] LABORATORY Basophils % 0.5 % [facility] LABORATORY Basophils Abs 0.0 0.0 - 0.1 [facility] x10(3)/[facility] LABORATORY Immature Gran % 0.70 [...] Address City/State/ZIP Code Phon e Number [address] (ABNORMAL) Hemogram (08/08/2017 4:51 AM EST) Analysis Performed At Patho logist Time Signature WBC 10.5 (H) 4.0 - 9.5 [facility] x10(3)/[facility] LABORATORY RBC 3.27 (L) 4.58 - [facility] 5.54 [facility] x10(6)/[facility] LABORATORY Hemoglobin 9.3 (L) 13.7 - [facility] 16.5 gm/dL [facility] LABORATORY Hematocrit 30.3 (L) 40.5 - [facility] 48.5 % [facility] LABORATORY MCV 92.7 82.9 - [facility] 93.1 [facility] LABORATORY MCH 28.4 27.5 - [facility] 32.1 pg [facility] LABORATORY MCHC 30.7 (L) 32.0 - [facility] 35.7 gm/dL [facility] LABORATORY Platelets 252 145 - 357 [facility] x10(3)/[facility] LABORATORY RDWSD 54.6 (H) 36.0 - [facility] 45.0 [facility] LABORATORY RDWCV 16.2 (H) 11.4 - [facility] RYAN 13.8 % [facility] LABORATORY MPV 9.1 7.6 - 12.9 [facility] LABORATORY nRBC % Auto 0.0 % [facility] LABORATORY nRBC Abs Auto 0.000 0.000 - [facility] 0.000 [facility] x10(3)/[facility] LABORATORY Specimen Anatomical Collection Method Collection Time Receive d Time (Source) Location / / Volume Laterality Blood specimen 08/08/2017 4:51 AM 018 5:14 (specimen) EST AM EST Resulting Agency Comment Spec In Lab Yonathan Smith MD HEMATOLOGY ORDERABLES Performing Organization Address City/State/[place] [address] (ABNORMAL) Prothrombin Time (08/08/2017 [...] Address City/State/[place] [address] (ABNORMAL) Basic Metabolic Panel (non-fasting) (08/08/2017 4:51 AM EST) athologist Signature Glucose Lvl 229 (H) 65 - 199 [facility] mg/dL [facility] LABORATORY Comment: [...] or in patients with acute kidney failure. http://[employer]/DHnkdep http://[employer]/DHMCnkf Specimen Anatomical Collection Method Collection Time Receive d Time (Source) Location / / Volume Laterality Blood specimen 08/08/2017 4:51 AM 018 5:14 (specimen) EST AM EST Resulting Agency Comment Spec In Lab Yonathan Smith MD CHEMISTRY ORDERABLES Performing Organization Address City/[facility]/ZIP Code Phon e Number [address] POCT Glucose (08/08/2017 4:20 AM EST) athologist Signature POC Glucose 193 65 - 199 [facility]/dL [facility] LABORATORY Comment: Supplemental ranges: <140 mg/dL before meals <180 mg/dL all other times of the day Specimen Anatomical Collection Method Collection Time Receive d Time (Source) Location / / Volume Laterality Blood specimen 08/08/2017 4:20 AM 018 4:20 (specimen) EST AM EST Yonathan Smith MD POINT OF CARE TEST ORDERABLE S Performing Organization Address City/[facility]/ZIP Code Phon e Number [address] POCT Glucose (08/07/2017 11:11 PM EST) athologist Signature POC Glucose 124 65 - 199 [facility] mg/dL [facility] LABORATORY Comment: Supplemental ranges: <140 mg/dL before meals <180 mg/dL all other times of the day Specimen Anatomical Collection Method Collection Time Receive d Time (Source) Location / / Volume Laterality Blood specimen 08/07/2017 11:11 8 (specimen) PM EST 11:11 PM EST Yonathan Smith MD POINT OF CARE TEST ORDERABLE S Performing Organization Address City/[facility]/[place]IP [place] [address] (ABNORMAL) APTT (08/07/2017 10:18 [...] Address City/State/Z[place] [address] POCT Glucose (08/07/2017 8:10 PM EST) athologist Signature POC Glucose 140 65 - 199 [facility] mg/dL [facility] LABORATORY Comment: Supplemental ranges: <140 mg/dL before meals <180 mg/dL all other times of the day Specimen Anatomical Collection Method Collection Time Receive d Time (Source) Location / / Volume Laterality Blood specimen 08/07/2017 8:10 PM 018 8:10 (specimen) EST PM EST Yonathan Smith MD POINT OF CARE TEST ORDERABLE S Performing Organization Address City/State/ZIP [place] [address] POCT Glucose (08/07/2017 5:27 PM EST) athologist Signature POC Glucose 187 65 - 199 [facility]dL [facility] LABORATORY Comment: Supplemental ranges: <140 mg/dL before meals <180 mg/dL all other times of the day Specimen Anatomical Collection Method Collection Time Receive d Time (Source) Location / / Volume Laterality Blood specimen 08/07/2017 5:27 PM 018 5:27 (specimen) EST PM EST Yonathan Smith MD POINT OF CARE TEST ORDERABLE S Performing Organization Address City/[facility]/ZIP [place] [address] POCT Glucose (08/07/2017 3:29 PM EST) athologist Signature POC Glucose 86 65 - 199 [facility] mg/dL [facility] LABORATORY Comment: Supplemental ranges: <140 mg/dL before meals <180 mg/dL all other times of the day Specimen Anatomical Collection Method Collection Time Receive d Time (Source) Location / / Volume Laterality Blood specimen 08/07/2017 3:29 PM 018 3:29 (specimen) EST PM EST Yonathan Smith MD POINT OF CARE TEST ORDERABLE S Performing Organization Address [facility] [place] [address] (ABNORMAL) APTT (08/07/2017 2:50 [...] HEMATOLOGY ORDERABLES Performing Organization Address City/[facility]/ZIP [facility] [place] [address] (ABNORMAL) POCT Glucose (08/07/2017 2:23 PM EST) athologist Signature POC Glucose 55 (L) 65 - 199 [place] mg/dL [facility] LABORATORY Comment: Supplemental ranges: <140 mg/dL before meals <180 mg/dL all other times of the day Specimen Anatomical Collection Method Collection Time Receive d Time (Source) Location / / Volume Laterality Blood specimen 08/07/2017 2:23 PM 018 2:23 (specimen) EST PM EST Yonathan Smith MD POINT OF CARE TEST ORDERABLE S Performing Organization Address City/State/ZIP Code Phon e Number [address] POCT Glucose (08/07/2017 12:08 PM EST) P athologist Signature POC Glucose 77 65 - 199 [facility] mg/dL [facility] LABORATORY Comment: Supplemental ranges: <140 mg/dL before meals <180 mg/dL all other times of the day Specimen Anatomical Collection Method Collection Time Receive d Time (Source) Location / / Volume Laterality Blood specimen 08/07/2017 12:08 8 (specimen) PM EST 12:08 PM EST Yonathan Smith MD POINT OF CARE TEST ORDERABLE S Performing Organization Address City/State/ZIP [place] [address] (ABNORMAL) Differential, Automated (08/07/2017 7:30 AM EST) Patholo gist Method Time Signature Neutrophils % 73.8 % [facility] LABORATORY Neutr Abs (ANC) 7.17 (H) 1.70 - [facility] 6.10 [facility] x10(3)/[facility] L LABORATORY Lymphocytes % 12.2 % [facility] LABORATORY Lymphocytes Abs 1.2 0.9 - 3.2 [facility] x10(3)/[facility] LABORATORY Monocytes % 9.0 % [facility] LABORATORY Monocyte Abs 0.9 0.3 - 0.9 [facility] x10(3)/[facility] LABORATORY Eosinophils % 3.9 % [facility] LABORATORY Eosinophils Abs 0.4 0.0 - 0.4 [facility] x10(3)/[facility] LABORATORY Basophils % 0.6 % [facility] LABORATORY Basophils Abs 0.1 0.0 - 0.1 [facility] x10(3)/[facility] LABORATORY Immature Gran % 0.50 [...] City/State/ZIP Code Phon e Number [place] [id number]OS[address] (ABNORMAL) Hemogram (08/07/2017 7:30 AM EST) Analysis Performed At Patho logist Time Signature WBC 9.7 (H) 4.0 - 9.5 [facility] x10(3)/[facility] LABORATORY RBC 3.54 (L) 4.58 - [facility] 5.54 [facility] x10(6)/[facility] LABORATORY Hemoglobin 9.9 (L) 13.7 - [facility] 16.5 gm/dL [facility] LABORATORY Hematocrit 32.3 (L) 40.5 - [facility] 48.5 % [facility] LABORATORY MCV 91.2 82.9 - [facility] 93.1 [facility] LABORATORY MCH 28.0 27.5 - [facility] 32.1 pg [facility] LABORATORY MCHC 30.7 (L) 32.0 - [facility] 35.7 gm/dL [facility] LABORATORY Platelets 312 145 - 357 [facility] x10(3)/[facility] LABORATORY RDWSD 53.2 (H) 36.0 - [facility] 45.0 [facility] LAB[facility] RDWCV 16.0 (H) 11.4 - [facility] 13.8 % [facility] LABORATORY MPV 8.9 7.6 - 12.9 [facility] LABORATORY nRBC % Auto 0.0 % [facility] LABORATORY nRBC Abs Auto 0.000 0.000 - [facility] 0.000 [facility] x10(3)/[facility] LABORATORY Specimen Anatomical Collection Method Collection Time Receive d Time (Source) Location / / Volume Laterality Blood specimen 08/07/2017 7:30 AM 018 7:45 (specimen) EST AM EST Resulting Agency Comment Spec In Lab Yonathan Smith MD HEMATOLOGY ORDERABLES Performing Organization Address City/State/[place] [address] (ABNORMAL) Basic Metabolic Panel (non-fasting) (08/07/2017 7:30 AM EST) athologist Signature Glucose Lvl 80 65 - 199 [facility] mg/dL [facility] LABORATORY Comment: [...] or in patients with acute kidney failure. [email or web address] [email or web address]/[facility] NORMANnkf Specimen Anatomical Collection Method Collection Time Receive d Time (Source) Location / / Volume Laterality Blood specimen 08/07/2017 7:30 AM 018 7:45 (specimen) EST AM EST Resulting Agency Comment Spec In Lab Yonathan Smith MD CHEMISTRY ORDERABLES Performing Organization Address City/[facility]/ZIP [facility] Phon e Number [address] POCT Glucose (08/07/2017 7:27 AM EST) athologist Signature POC Glucose 81 65 - 199 [facility] mg/dL [facility] LABORATORY Comment: Supplemental ranges: <140 mg/dL before meals <180 mg/dL all other times of the day Specimen Anatomical Collection Method Collection Time Receive d Time (Source) Location / / Volume Laterality Blood specimen 08/07/2017 7:27 AM 018 7:27 (specimen) EST AM EST Yonathan Smith MD POINT OF CARE TEST ORDERABLE S Performing Organization Address City/[facility] Phon e Number [address] APTT (08/07/2017 7:04 [...] Address City/State/ZIP [place] [address] (ABNORMAL) Prothrombin Time (08/07/2017 [...] Address City/State/ZIP [place] [address] POCT Glucose (08/07/2017 4:03 AM EST) athologist Signature POC Glucose 93 65 - 199 [facility]/dL [facility] LABORATORY Comment: Supplemental ranges: <140 mg/dL before meals <180 mg/dL all other times of the day Specimen Anatomical Collection Method Collection Time Receive d Time (Source) Location / / Volume Laterality Blood specimen 08/07/2017 4:03 AM 018 4:03 (specimen) EST AM EST Yonathan Smith MD POINT OF CARE TEST ORDERABLE S Performing Organization Address City/State/ZIP [place] [address] POCT Glucose (08/07/2017 12:04 AM EST) athologist Signature POC Glucose 107 65 - 199 [facility] mg/dL [facility] LABORATORY Comment: Supplemental ranges: <140 mg/dL before meals <180 mg/dL all other times of the day Specimen Anatomical Collection Method Collection Time Receive d Time (Source) Location / / Volume Laterality Blood specimen 08/07/2017 12:04 8 (specimen) AM EST 12:04 AM EST Yonathan Smith MD POINT OF CARE TEST ORDERABLE S Performing Organization Address City/[facility]/ZIP Code Phon e Number [address] POCT Glucose (08/06/2017 7:56 PM EST) P athologist Signature POC Glucose 178 65 - 199 [facility] mg/dL [facility] LABORATORY Comment: Supplemental ranges: <140 mg/dL before meals <180 mg/dL all other times of the day Specimen Anatomical Collection Method Collection Time Receive d Time (Source) Location / / Volume Laterality Blood specimen 08/06/2017 7:56 PM 018 7:56 (specimen) EST PM EST Yonathan Smith MD POINT OF CARE TEST ORDERABLE S Performing Organization Address City/State/ZIP Code Phon e Number [address] TcPO2 (08/06/2017 2:32 PM EST) Component Value Ref Test Analysis Performed At Patholo gist Range Method Time Signature VB Text Department: Vascular Surgery Lab VASCUBASE Report Patient: [id number] (GREGORY HOANG) CPT: 5762582 ICD10: I99.8 Referring Physician: YONATHAN SMITH ?? [...] Provider: Chiquis Mcgrath RN)1725 (Given - Provider: hCiquis Mcgrath RN) 0501 (Given - Provider: Henrique [...] rovider: Chiquis Mcgrath RN)2010 (Given - Provider: Henrqiue Marks RN) 08 [...] Dory Truong, VAMSI)1042 (Given - Provider: Dory Trunog, VAMSI) 2-4 mg, Oral, EVERY 3 HOURS [...]
Routine documented in this encounter Care Teams Designer Architect Relationship Specialty Start Date End Date Lovely Vicente MD PCP - General 04/16/[address] [place] [address] [address] [place] [address] documented as of this encounter
--- OUTSIDE RECORDS SUMMARY | 2022-05-08 02:24 | XMS_ITS | Encounter Summary ---
:1945 Author Organization [facility] [place] [address] Care Team Providers Name Role Phone Lovely Vicente MD Primary Care Provider Reason for Visit Auth/Cert Specialty Diagnoses / Procedures Referred By Contact Refer red To Contact Diagnoses Critical lower limb ischemia CELLULITIS RT FOOT Procedures EMERGENCY Referral ID Status Reason Start Date Expiration Date Visits Requ ested Visits Authorized [id number] 1 1 Encounter Details Date Type Department Care Team Description 08/06/2017 Clinical Support Same Day at [facility] Ischemia of foot [facility] [place] [phone] Social History Tobacco Use Types Packs/Day [...] noother symptoms except severe right foot pain. [facility] clinic called as pt on route there [...] Dolan MD [facility] [address] [employer], [place] [address] (Wo rk) 05/28/2022 Laboratory Appointment Lab 05/28/2022 Office Visit Cardiology Zulma Dolan [place] [address] Liz Poole PA [facility] [place] [address] 06/10/2022 Office Visit Dermatology Laura Scherer MD [facility] [address] [place], [place] [address] (Wo rk) documented as of [...] 444 ms MUSE SYSTEM (Bezet) Calculated P [place] 44 degrees MUSE SYSTEM Calculated R [place] -31 degrees MUSE SYSTEM Calculated T [place] 106 degrees MUSE SYSTEM INTERPRETATION Normal sinus [...] documented in this encounter Care Teams Machine Clipper Relationship Specialty Start Date End Date Lovely Vicente MD PCP - General 04/16/[address] [place] [address] documented as of this encounter
--- OUTSIDE RECORDS SUMMARY | 2022-05-08 02:24 | XMS_ITS | Encounter Summary ---
:1945 [place] [address] Care Team Providers Name Role Phone Lovely Vicente MD Primary Care Provider Reason for Visit Auth/Cert Specialty Diagnoses / Procedures Referred By Contact Refer red To Contact Diagnoses Critical lower limb ischemia CELLULITIS RT FOOT Procedures EMERGENCY Referral ID Status Reason Start Date Expiration Date Visits Requ ested Visits Authorized [id number] 1 1 Encounter Details Date Type Department Care Team Description 08/09/2017 Anesthesia Event Main Operating Room Daniele Lizama MD [facility] [place] [address] [facility] Rob Jones MD [facility] [address] [place] [address] Anesthesia Record Procedure Summary Procedure Name [...] Knowles, Dory arm), right; VAMSI Rios, RN gdes-yis-qhnvhy catheter system; 20 gauge; 08/16/17; 1047 PIV 07/29/17; 1413; median 07/29/17 1413 by 08/16/17 1047 by cubital vein (antecubital Magdalene Hickey Williams, Dory fossa), left; VAMSI Wyatt, RN qibv-hke-rtcpfo catheter system; 20 gauge; 08/16/17; 1047 PIV 08/06/17; 1742; cephalic 08/06/17 1742 by 0920 by vein (lateral side of Taylor Laureano Danah y, Caitlyn C, arm), right; VAMSI BONNER qyzi-xrp-wkftgu catheter system; 22 gauge, 1 in length; Eliseo LAUREANO RN VAS; distraction, intradermal injection, tolerated well, appears comfortable; 0; 08/16/17; 0920 Wound 08/07/17; 1335; knee; 08/07/17 1335 by 08/16/17 1047 by laceration; wound occured Barbara Albert iams, Dory CAR BODY INSPECTOR; 08/16/17; 1047 VAMSI Alonzo, RN PIV 08/07/17; 1734; cephalic 08/07/17 1734 by 1047 by vein (lateral side of Kendrick, Carlos W, Willia ms, Dory arm), left; MARCIE Wyatt RN urdv-oxx-hnmwzc catheter system; 22 gauge; distraction, intradermal injection, [...] Santillan MD - 08/09/2017 9:01 AM EST [facility] Department of Anesthesiology Post-procedure Note Patient: Don Fatima Procedure Summary Date Anesthesia Start Anesthesia Stop Room / Location 08/09/17 0802 0901 [facility] OR 14 / [facility] MAIN OR Procedure Diagnosis Surgeon Responsible Provider AMPUTATION, 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 Nerve [...] by Manny Mcknight MD at [facility] MAIN OR ??? PRO CABG, ARTERIAL, SINGLE N/A 07/07/2017 @CABG, USING ARTERIAL GRAFT;SINGLE ARTERIAL GRAFT (WRVU 33.75) performed by Yuan Retana MD at [facility] MAIN OR ??? PRO CABG, ARTERY-VEIN, TWO N/A 07/07/2017 @CABG, TWO VENOUS GRAFTS & ARTERIAL GRAFT (WRVU 7.93) performed by Yuan Retana MD at [facility] MAIN OR ??? PRO COLONOSCOPY, REMV LESN, SNARE 01/16/2014 COLONOSCOPY, POLYPECTOMY, REMOVAL LESION BY SNARE performed by Nohemi Jaimes MD at [facility] ENDOSCOPY ??? PRO ENDOSCOPY W/VIDEO-ASST VEIN HARVEST, CABG Right 07/07/2017 ENDOSCOPIC HARVEST VEIN(S) FOR CABG (WRVU 0.31) performed by Yuan Retana MD at [facility] MAIN OR ??? PRO THYROIDECTOMY 03/28/2013 THYROIDECTOMY, TOTAL OR COMPLETE performed by Manny Mcknight MD at [facility] MAIN OR Social History Substance [...] adequate IV access. Brody Santillan MD PGY-2, [place] Linebacker Crewmember Pager #[phone] Anesthesiology Staff (Dewhirst): Pre-op summary note as [...] Cardiology Zulma Dolan MD [facility] [address] [place], [place] [address] (Wo rk) 05/28/2022 Laboratory Appointment Lab 05/28/2022 Office Visit Cardiology Zulma Dolan MD [facility] [place] [address] Liz Poole PA [facility] [place] [address] 06/10/2022 Office Visit Dermatology Laura Scherer MD [facility] [address] [place], [place] [address] (Wo rk) documented as of [...] Length: 10 cm Gauge: 21 Needle Type: W-dhkqx-pjxzn Medication injection made in crementally with aspirations. [...] Procedure) documented in this encounter Care Teams Naphtha Washing System Operator Relationship Specialty Start Date End Date Lovely Vicente MD PCP - General 04/16/[address] [place] [address] documented as of this encounter
--- OUTSIDE RECORDS SUMMARY | 2022-05-08 02:24 | XMS_ITS | Encounter Summary ---
:1945 Author Organization [facility] [place] [address] Care Team Providers Name Role Phone Lovely Vicente MD Primary Care Provider Reason for Visit Auth/Cert Specialty Diagnoses / Procedures Referred By Contact Refer red To Contact Diagnoses Critical lower limb ischemia CELLULITIS RT FOOT Procedures EMERGENCY Referral ID Status Reason Start Date Expiration Date Visits Requ ested Visits Authorized [id number] 1 1 Encounter Details Date Type Department Care Team Description 08/09/2017 Surgery Main Operating Room Yonathan Smith AM PUTATION, Mary Hitchcock MD TRANSMETATARSAL ([facility] 12.71) [facility] DR Siddiqui [place] [address] [place] [address] [phone] Social History Tobacco Use Types Packs/Day Years [...] 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 0.94 ??Parmer-Biphasic ? Posterior Tibial (Ankle) Artery ??154 ? 1.10 ??Parmer-Biphasic ? Fourth Toe ? 67 ?0.48 ?? [...] foot. Discharge Conditions/Prognosis: Good Discharge to: [facility] Rehab Discharge Medications: Your Medications [...] For any problems or questions please call [phone] ZELDA Smith, monotyper Nurse Clinician For issues on weeknights after 5pm and weekends please call [phone] and ask for the Vascular Fellow cisco unified communications engineer. General Instructions None Future Appointments and Orders Future Appointments Provider Department Dept Phone 08/26/2017 4:00 PM Aurelia Rivera PA Vascular Surgery at [place] [phone] 09/07/2017 3:00 PM LAB, THREE L Lab 3L [facility] [phone] 09/07/2017 4:00 PM Luz Prescott MD Endocrinology at [place] [phone] 09/09/2017 8:00 AM Barbra Soares APRN Pain Management at [place] [phone] Please bring a list of your current [...] For any problems or questions please call [phone] ZELDA Smith, monotyper Nurse Clinician For issues on weeknights after 5pm and weekends please call [phone] and ask for the Vascular Fellow cisco unified communications engineer. documented in this encounter Medications at [...] Discharge Note Patient Destination: [facility] ([facility]) [address] [id number] Transportation: with (at bedside) Time of Discharge: by 12 noon Level of Care: swing Patient Aware: yes Family Notified: yes Md to call report to: Yissel Quintero SAND MIXER MACHINE already called RN to call report to: [phone] Shirin Wolf Office of Care Management Pager [phone] Shirin Wolf RN - 08/16/2017 10:50 AM EST [facility] has offered pt swing bed. Pt and accept bed. will transport via car. SAND MIXER MACHINE Yissel Quintero aware; d/c paperwork will be completed by 12 noon. [facility] requests pt arrival by 1400 today; SAND MIXER MACHINE, RN, and family aware. SAND MIXER MACHINE called [facility] and was told that they prefer pt to arrive with wound vac dressing applied but clamped. SAND MIXER MACHINE applied new wound vac dressing. RN has [facility] number to call report. PASSR completed; SAND MIXER MACHINE paged to request provider signature in highlighted space. Indigo from [facility] notified via email that home wound vac now cancelled; [facility] has picked up from room and order cancelled. Packet started and provided to manager community development. Medicare important message explained to patient, patient signed. Copy provided to patient and signature page to OCM for inclusion in pt EMR. L Radha Powers Yoselin - 08/16/2017 10:34 AM EST Office of Care Management/Die Baker Patient Name: Gregory Hoang : 1945 Patient has been offered a swing bed at [facility]. The patient will be transported by private transportation. No MD to MD report necessary Please call Nursing Report to [phone], ask for rotary cutter feeder. Info to accompany patient: Narcotic Prescriptions Copies of Medication Administration Records and IV sheets for past 10 days. Plan: Die Baker will be available to the patient and Glove Factory Sewer-RN and/or Lapel Baster for further assistance. Patient will be discharged to: [id number] Radha Powers, Die Baker Mira rTuong, VAMSI - 08/15/2017 10:05 PM EST [address] Flores to ask if he wanted to hold metoprolol dose. BP 95/58. OK to hold this dose Courtney Brito - 08/15/2017 3:26 PM EST Office of Care Management(OCM)/Die Baker(RS)/ D/C Planning re : Patient is medically ready for d/c today. RS has been in contact with [facility] to see if they could offer a bed. [facility] is still reviewing the case and need their MD to review chart prior to accepting or declining. OCM team needs to check in with [facility] tomorrow to check on status. 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 Vac in place. [...] referral to: [facility] PHONE: [phone] FAX: [phone] CM spoke with RS who said that [...] rehab. Await recommendations from PT. Covering pager #[phone]. 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 Warehouse Order Puller Kaitlin Saha, RN Pager #[phone] Payam Rosales - 08/13/2017 2:37 PM EST Lumber Tailer Encounter Note Patient Name: Gregory Hoang : [id number] MR#: [id number] Admit Date: 08/06/2017 1:41 PM Hospital Day 7 days Narrative: Visited to introduce and assess acceptance of [facility] T[employer] services. Pt was awake, alert, oriented and in chair and family was there. Assessment:Patient coping positively with stresses of illness/hospitalization at this time. Pt says that he is hoping to get better and his family was there. Pt says that he has family care and supportand taking one day at time. Intervention and Outcome: Provided emotional support and encouraging presence. 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 A letter describing our affiliations was reviewed with them and theywere educated about their right to choose where referrals are placed. Patient requests referral to [facility] (formerly [facility]). PHONE: [phone] FAX: [phone]. And Home NPWT (Negative Pressure Wound Therapy) aka wound vac device made available to pt. Serial # confirmed. Reviewed [facility] Proof of Delivery/Assignment of Benefits Statement(POD/AOB) Form w patient or authorized agent signing on behalf of patient. Copy of POD/AOB provided to pt and other copy faxed to [employer] @ fax# [phone] Expected date of discharge: 08/12/2017. 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 Heparin gtt continues to run. Pt a/ox4. [...] : 1945 AGE 72 y.o. 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 Unsuccessful draw attempt, another director safety council will come [facility] to collect blood for PTT test. 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 Vascular resident cisco unified communications engineer and will forward result to the team prior to rounds. 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 Completion RLE angiogram 6. 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 - L CARTON LETTERING MACHINE OPERATOR angriogram demonstrated: High femoral bifurcation over the proximal half of the femoral head. L CARTON LETTERING MACHINE OPERATOR access in the distal L CARTON LETTERING MACHINE OPERATOR. - Closure device: Mynx Technical [...] for a 45cm 5F Destination. V18 and [place] and QuickCross catheters were used to select [...] 5F. A stationed picture of the L CARTON LETTERING MACHINE OPERATOR was performed as the patient was noted to have a very high bifurcation. Access appeared in the distal R CARTON LETTERING MACHINE OPERATOR. Closure and sheath removal was [...] PM EST 1440 report called to 5 woden nurse Tessa RN documented in this encounter [...] pt and pt's spouse. Discharge to [facility]. Goal: Individualization & Mutuality Outcome: [...] to supine -- Bed Mobility Goal, [place] Level independent -- Bed Mobility Goal, Date [...] days -- Transfer Training Goal, Activity Type ljv-xf-kltns/njohf-zv-oor -- Transfer Train Goal, [place] Level conditional independence -- Transfer Train Goal, [...] call cabello within reach, Hourly rounding by RN/CARBONIZER TESTER. Bed alarm / Chair alarm. Patient-specific [...] Operative Note Patient Name: Gregory Hoang : [id number] MR#: [id number] Case Date: 08/09/2017 Surgeon: Surgeon(s) and Role: [...] 2.5x80 5. Completion RLE angiogram 6. 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 Mynx closure Precautions/Restrictions: [...] other (see comments) (or swing bed) Pager: [phone] BASSAM ELIAS, PT 08/14/2017 Inpatient Physical Therapy [...] Achieve by discharge Gait Training Goal, [place] Level conditional independence;set up required Gait Training [...] facilities over the weekend except for [facility]. CM spoke with [facility] CM Drea Sandhu, VAMSI who said that they do not anticipate any beds over the weekend. Reviewed with patient/ that they need to be aware that patient will need to take the first bed offered at the facilities that they make referrals to. Their choices are: 1- [facility] PHONE: [phone] FAX: [phone] 2- [facility] ([facility]) [address] [place] [address] 3- [facility]) [address] [place] [address] I have discussed Medicare/Private Insurance [...] RS/CM on Wednesday to follow-up. Covering pager #[phone] for today. Plan of Care - Henrique [...] with additional findings of pseudoaneurysm on R CARTON LETTERING MACHINE OPERATOR and bilateral anterior tibial artery [...] an outpatient once discharged. Have patient call [phone] to set up an appointment. Follow-up: Dermatology will sign-off for now. Please do not hesitate to contact us if you have any questions orconcerns. Impression and Recommendations discussed with primary team on 08/13/2017. Karo Henderson MD Resident in Dermatology Section of Dermatology, Department of Surgery [facility] Pager [phone] Patient seen and evaluated with staff Unit Manager Rn: Halima Cordero MD Section of Dermatology [facility] [...] Outcome: Ongoing (Interventions Implemented as Appropriate) 08/12/17 5536 Coping/Psychosocial Plan Of Care Reviewed With patient;spouse [...] 2.5x80 5. Completion RLE angiogram 6. 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 Mynx closure Active [...] home with home health ([facility] PT[facility]OT) Pager: [phone] YASIR TELLO OT 08/12/2017 Occupational Therapy Rehabilitation [...] 2.5x80 5. Completion RLE angiogram 6. 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 Mynx closure Past [...] with 24/7 assistance and maximal services) Pager: [phone] NICHOLAS MORA, PT 08/12/2017 Physical Therapy Rehabilitation [...] to supine -- Bed Mobility Goal, [place] Level independent -- Bed Mobility Goal, Outcome Achieved -- goal ongoing Goal: Gait Training Goal Stand Alone Therapy Goal Outcome: Ongoing (Interventions Implemented as Appropriate) 08/11/17 1310 08/12/17 1510 Gait Training Goal Gait Training Goal, Date Established 08/11/17 -- Gait Training Goal, Time to Achieve 5 - 7 days -- Gait Training Goal, [place] Level conditional independence -- Gait Training Goal, [...] days -- Transfer Training Goal, Activity Type xdm-md-kzekj/hfqhb-th-rvh -- Transfer Train Goal, [place] Level conditional independence -- Transfer Training Goal, [...] Operative Note Patient Name: Gregory Hoang : [id number] MR#: [id number] Case Date: 08/11/2017 Surgeon: Surgeon(s) and Role: [...] 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 Completion RLE angiogram 6. 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 Mynx closure He [...] Anticipated Discharge Disposition: inpatient rehabilitation facility Pager: [phone] LAWRENCE GONZALEZ, PT 08/11/2017 Physical Therapy Rehabilitation [...] sit/sit to supine Bed Mobility Goal, [place] Level independent Goal: Gait Training Goal Stand Alone Therapy Goal Outcome: Ongoing (Interventions Implemented as Appropriate) 08/11/17 1310 Gait Training Goal Gait Training Goal, Date Established 08/11/17 Gait Training Goal, Time to Achieve 5 - 7 days Gait Training Goal, [place] Level conditional independence Gait Training Goal, Assist [...] 7 days Transfer Training Goal, Activity Type xtn-vy-lmfak/jslml-xc-oto Transfer Train Goal, [place] Level conditional independence Plan of David DelloAnnetta [...] call cabello within reach, Hourly rounding by RN/CARBONIZER TESTER. Bed alarm / Chair alarm. ? [...] Advance Care Planning: on file Kisha Hoang [facility] [phone] Current Coping/Education/Information Needs: pt and spouse state [...] Health/Prescription Coverage: Primary Insurance: MEDICARE Secondary Insurance: [employer] [place] Prescription Coverage: See above Preferred Pharmacy: [id number] Other: N/A Primary Care Provider: Lovely Vicente MD [phone] Patient/Caregiver Goals of Treatment: Patient plans to return home when medically ready Potential Needs for Transition of Care: Rehab/SNF: N/A Home Health: [facility]. DME: pt has a cane [...] of care planning. Kaitlin Saha RN Pager: [phone] Plan of Care - Melba Jaramillo RN [...] call cabello within reach, Hourly rounding by RN/CARBONIZER TESTER. Bed alarm / Chair alarm. Patient-specific fall prevention interventions for sensory deficits provided, if applicable: [X] Yes CPG GOAL OUTCOME EVALUATION: Goal: Fall Prevention-Safe Patient Handling Outcome: Ongoing (Interventions Implemented as Appropriate) 08/06/17 1700 08/06/17199908/07/17 3404 Positioning Body Position -- up in chair [...] at bedside and MD TEAM Carrying pager [phone] contacted (via Radio page) and notified of [...] Cardiology Zulma Dolan MD [facility] [place], [place] [address] (Wo rk) 05/28/2022 Laboratory Appointment Lab 05/28/2022 Office Visit Cardiology Zulma Dolan MD [facility] [place] [address] Liz Poole PA [facility] [place] [address] 06/10/2022 Office Visit Dermatology Laura Scherer MD [facility] [address] [place], [place] [address] [...] 160 65 - 199 [place] mg/dL [facility] Comment: [...] City/State/[place] [address] [facility] [address] (ABNORMAL) Differential, Automated (08/16/2017 5:08 AM EST) [facility] Method Time Signature Neutrophils % 73.9 % [facility] Neutr Abs (ANC) 5.37 1.70 - [facility] 6.10 [facility] x10(3)/[facility] LABORATORY Lymphocytes % 10.1 % [facility] Lymphocytes Abs 0.7 (L) 0.9 - 3.2 [facility] x10(3)/[facility] LABORATORY Monocytes % 10.1 % [facility] Monocyte Abs 0.7 0.3 - 0.9 [facility] x10(3)/[facility] LABORATORY Eosinophils % 5.1 % [facility] Eosinophils Abs 0.4 0.0 - 0.4 [facility] x10(3)/[facility] LABORATORY Basophils % 0.4 % [facility] Basophils Abs 0.0 0.0 - 0.1 [facility] x10(3)/[facility] LABORATORY Immature [...] 0.04 x10(3)/[facility] LABORATORY Specimen Anatomical Collection Method Collection Time Receive d Time (Source) Location / / Volume Laterality Blood specimen 08/16/2017 5:08 AM 018 5:20 (specimen) EST AM EST Resulting Agency Comment Spec In Lab Yonathan Smith MD HEMATOLOGY ORDERABLES Performing Organization Address City/State/[place] [address] [facility] [address] (ABNORMAL) Hemogram (08/16/2017 5:08 AM EST) Analysis Performed At Patho logist Time Signature WBC 7.3 4.0 - 9.5 [facility] x10(3)/[facility] LABORATORY RBC 3.36 (L) 4.58 - [facility] 5.54 [facility] x10(6)/[facility] LABORATORY Hemoglobin 9.7 (L) 13.7 - [facility] 16.5 gm/dL [facility] Hematocrit 30.3 (L) 40.5 - [facility] 48.5 % [facility] MCV 90.2 82.9 - [facility] 93.1 [facility] LABORATORY MCH 28.9 27.5 - [facility] 32.1 pg [facility]ORATORY MCHC 32.0 32.0 - [facility] 35.[facility] gm/dL [facility] Platelets 282 145 - 357 [facility] x10(3)/[facility] LABORATORY RDWSD 53.9 (H) 36.0 - [facility] 45.0 [facility] LABORATORY RDWCV 16.5 (H) 11.4 - [facility] 13.8 % [facility] LABORATORY MPV 9.0 7.6 - 12.9 [facility] LABORATORY nRBC % Auto 0.0 % [facility] LAB[facility] nRBC Abs Auto 0.000 0.000 - [facility] 0.000 [facility] x10(3)/[facility] LABORATORY Specimen Anatomical Collection Method Collection Time Receive d Time (Source) Location / / Volume Laterality Blood specimen 08/16/2017 5:08 AM 018 5:20 (specimen) EST AM EST Resulting Agency Comment Spec In Lab Yonathan Smith MD HEMATOLOGY ORDERABLES Performing Organization Address City/State/[place] [address] (ABNORMAL) Basic Metabolic Panel (non-fasting) (08/16/2017 5:08 AM EST) P athologist Signature Glucose Lvl 141 65 - 199 [facility] mg/dL [facility] Comment: Diabetes: >=200 mg/dL plus symp toms BUN 29 (H) 10 - 20 mg/dL [facility] LAB[facility]ORY Creatinine 1.25 0.80 - 1.50 mg/dL [facility] [...] or in patients with acute kidney failure. http://[employer]/DHnkdep http://[employer]/DHMCnkf Specimen Anatomical Collection Method Collection Time Receive d Time (Source) Location / / Volume Laterality Blood specimen 08/16/2017 5:08 AM 018 5:20 (specimen) EST AM EST Resulting Agency Comment Spec In Lab Yonathan Smith MD CHEMISTRY ORDERABLES Performing Organization Address City/State/[place] [address] (ABNORMAL) Prothrombin Time (08/16/2017 [...] [facility]/ZIP Code Phon e Number [address] POCT Glucose (08/16/2017 4:09 AM EST) athologist Signature POC Glucose 147 65 - 199 [facility] RYAN mg/dL [facility] LABORATORY Comment: [...] [facility]/ZIP Code Phon e Number [address] POCT Glucose (08/15/2017 11:56 PM EST) athologist Signature POC Glucose 176 65 - 199 [place] RYAN mg/dL [facility] LABORATORY Comment: [...] [facility]/ZIP Code Phon e Number [address] POCT Glucose (08/15/2017 8:05 PM EST) athologist Signature POC Glucose 136 65 - 199 [place] RYAN mg/dL [facility]ORY Comment: [...] Organization Address City/State/ZIP [place] [address] (ABNORMAL) POCT Glucose (08/15/2017 4:50 PM EST) athologist Signature POC Glucose 232 (H) 65 - 199 [place] mg/dL [facility] Comment: [...] Organization Address City/State/ZIP [place] [address] POCT Glucose (08/15/2017 12:04 PM EST) athologist Signature POC Glucose 135 65 - 199 [place] mg/dL [facility]ORY Comment: [...] Organization Address City/State/ZIP [place] [address] POCT Glucose (08/15/2017 7:36 AM EST) athologist Signature POC Glucose 124 65 - 199 [place] ZHAORYAN mg/dL [facility] Comment: [...] City/State/[place] [address] (ABNORMAL) Differential, Automated (08/15/2017 6:22 AM EST) [facility] Method Time Signature Neutrophils % 76.1 % [facility] LAB[facility]ORY Neutr Abs (ANC) 6.62 (H) 1.70 - [facility] 6.10 [facility] x10(3)/[facility] LABORATORY Lymphocytes % 9.3 % [facility] LABOR[facility]ORY Lymphocytes Abs 0.8 (L) 0.9 - 3.2 [facility] x10(3)/[facility] LABORATORY Monocytes % 9.4 % [facility] LABOR[facility]ORY Monocyte Abs 0.8 0.3 - 0.9 [facility] x10(3)/[facility] LABORATORY Eosinophils % 4.0 % [facility] Eosinophils Abs 0.4 0.0 - 0.4 [facility] x10(3)/[facility] LABORATORY Basophils % 0.6 % [facility]ORY Basophils Abs 0.0 0.0 - 0.1 [facility] x10(3)/[facility] LABORATORY Immature Gran % [...] 0.05 (H) 0.00 - 0.04 x10(3)/[facility] LABORATORY Specimen Anatomical Collection Method Collection Time Receive d Time (Source) Location / / Volume Laterality Blood specimen 08/15/2017 6:22 AM 018 6:33 (specimen) EST AM EST Resulting Agency Comment Spec In Lab Yonathan Smith MD HEMATOLOGY ORDERABLES Performing Organization Address City/[facility]/ZIP Code Phon e Number [address] (ABNORMAL) Hemogram (08/15/2017 6:22 AM EST) Analysis Performed At Patho logist Time Signature WBC 8.7 4.0 - 9.5 [facility] x10(3)/[facility] LABORATORY RBC 3.21 (L) 4.58 - [place] 5.54 [facility] x10(6)/[facility] LABORATORY Hemoglobin 9.1 (L) 13.7 - [facility] 16.5 gm/dL [facility] LABORATORY Hematocrit 29.0 (L) 40.5 - [facility] 48.5 % [facility] LABORATORY MCV 90.3 82.9 - [facility] 93.1 [facility] LABORATORY MCH 28.3 27.5 - [facility] RYAN 32.1 pg [facility] LABORATORY MCHC 31.4 (L) 32.0 - [facility] 35.7 gm/dL [facility] LABORATORY Platelets 254 145 - 357 [facility] x10(3)/[facility] LABORATORY RDWSD 53.9 (H) 36.0 - [facility] RYAN 45.0 [facility] LABORATORY RDWCV 16.3 (H) 11.4 - [facility] RYAN 13.8 % [facility] LABORATORY MPV 8.8 7.6 - 12.9 [facility] LABORATORY nRBC % Auto 0.0 % [facility] LABORATORY nRBC Abs Auto 0.000 0.000 - [facility] RYAN 0.000 [facility] x10(3)/[facility] LABORATORY Specimen Anatomical Collection Method Collection Time Receive d Time (Source) Location / / Volume Laterality Blood specimen 08/15/2017 6:22 AM 018 6:33 (specimen) EST AM EST Resulting Agency Comment Spec In Lab Yonathan Smith MD HEMATOLOGY ORDERABLES Performing Organization Address City/State/ZIP Code Phon e Number [facility] [place] [address] (ABNORMAL) Basic Metabolic Panel (non-fasting) (08/15/2017 6:22 AM EST) P athologist Signature Glucose Lvl 118 65 - 199 [facility] mg/dL [facility] [...] [facility] LABORATORY Estimated GFR >60 >=60 [facility] LABORATORY Comment: The reported eGFR should be multiplied b y 1.2 for patients. The MDRD is not an appropriate measure o f renal function for patients with body mass extremes or in patients with acute kidney failure. http://[employer]/DHnkdep http://[employer]/DHMCnkf Specimen Anatomical Collection Method Collection Time Receive d Time (Source) Location / / Volume Laterality Blood specimen 08/15/2017 6:22 AM 018 6:33 (specimen) EST AM EST Resulting Agency Comment Spec In Lab Yonathan Smith MD CHEMISTRY ORDERABLES Performing Organization Address City/State/ZIP Code Phon e Number [address] (ABNORMAL) Prothrombin Time (08/15/2017 [...] Address City/State/ZIP Code Phon e Number [address] POCT Glucose (08/15/2017 4:33 AM EST) athologist Signature POC Glucose 164 65 - 199 [facility] mg/dL [facility] LABORATORY Comment: [...] Address City/State/ZIP Code Phon e Number [address] POCT Glucose (08/15/2017 12:12 AM EST) athologist Signature POC Glucose 89 65 - 199 [facility] mg/dL [facility] LABORATORY Comment: [...] Address City/State/ZIP Code Phon e Number [address] (ABNORMAL) POCT Glucose (08/14/2017 8:07 PM EST) athologist Signature POC Glucose 204 (H) 65 - 199 [place] mg/dL [facility] LABORATORY Comment: [...] [facility]/ZIP [place] [address] POCT Glucose (08/14/2017 5:11 PM EST) athologist Signature POC Glucose 174 65 - 199 [place] mg/dL [facility] LABORATORY Comment: [...] Organization Address City/State/ZIP [place] [address] POCT Glucose (08/14/2017 12:10 PM EST) athologist Signature POC Glucose 141 65 - 199 [place] mg/dL [facility] LABORATORY Comment: [...] Address City/State/ZIP Code Phon e Number [address] POCT Glucose (08/14/2017 8:07 AM EST) P athologist Signature POC Glucose 158 65 - 199 [facility] mg/dL [facility] [...] Address City/State/ZIP Code Phon e Number [address] (ABNORMAL) Differential, Automated (08/14/2017 4:52 AM EST) Patholo gist Method Time Signature Neutrophils % 78.6 % [facility] LABORATORY Neutr Abs (ANC) 7.70 (H) 1.70 - [facility] 6.10 [facility] x10(3)/[facility] LABORATORY Lymphocytes % 7.8 % [facility] LABORATORY Lymphocytes Abs 0.8 (L) 0.9 - 3.2 [facility] x10(3)/[facility] LABORATORY Monocytes % 8.8 % [facility] LABORATORY Monocyte Abs 0.9 0.3 - 0.9 [facility] x10(3)/[facility] LABORATORY Eosinophils % 4.0 % [facility] LABORATORY Eosinophils Abs 0.4 0.0 - 0.4 [facility] x10(3)/[facility] LABORATORY Basophils % 0.5 % [facility] LABORATORY Basophils Abs 0.0 0.0 - 0.1 [facility] x10(3)/[facility] LABORATORY Immature Gran % 0.30 [...] 0.04 x10(3)/[facility] LABORATORY Specimen Anatomical Collection Method Collection Time Receive d Time (Source) Location / / Volume Laterality Blood specimen 08/14/2017 4:52 AM 018 5:08 (specimen) EST AM EST Resulting Agency Comment Spec In Lab Yonathan Smith MD HEMATOLOGY ORDERABLES Performing Organization Address City/State/[place] [address] (ABNORMAL) Hemogram (08/14/2017 4:52 AM EST) Analysis Performed At Patho logist Time Signature WBC 9.8 (H) 4.0 - 9.5 [facility] x10(3)/[facility] LABORATORY RBC 3.32 (L) 4.58 - [facility] 5.54 [facility] x10(6)/[facility] LABORATORY Hemoglobin 9.5 (L) 13.7 - [facility] 16.5 gm/dL [facility] LABORATORY Hematocrit 30.3 (L) 40.5 - [facility] 48.5 % [facility] LABORATORY MCV 91.3 82.9 - [facility] 93.1 [facility] LABORATORY MCH 28.6 27.5 - [facility] 32.1 pg [facility] LABORATORY MCHC 31.4 (L) 32.0 - [facility] 35.7 gm/dL [facility] LABORATORY Platelets 263 145 - 357 [facility] x10(3)/[facility] LABORATORY RDWSD 54.8 (H) 36.0 - [facility] 45.0 [facility] LABORATORY RDWCV 16.5 (H) 11.4 - [facility] 13.8 % [facility] LABORATORY MPV 9.1 7.6 - 12.9 [facility] LABORATORY nRBC % Auto 0.0 % [facility] LABORATORY nRBC Abs Auto 0.000 0.000 - [facility] 0.000 [facility] x10(3)/[facility] LABORATORY Specimen Anatomical Collection Method Collection Time Receive d Time (Source) Location / / Volume Laterality Blood specimen 08/14/2017 4:52 AM 018 5:08 (specimen) EST AM EST Resulting Agency Comment Spec In Lab Yonathan Smith MD HEMATOLOGY ORDERABLES Performing Organization Address City/[facility]/ZIP [place] [address] (ABNORMAL) Prothrombin Time (08/14/2017 [...] [facility]/ZIP [place] [address] (ABNORMAL) Basic Metabolic Panel (non-fasting) (08/14/2017 4:52 AM EST) athologist Signature Glucose Lvl 135 65 - 199 [facility] mg/dL [facility] LABORATORY Comment: Diabetes: >=200 mg/dL plus symp toms BUN 25 (H) 10 - 20 mg/dL [facility] LABORATORY Creatinine 1.36 0.80 - 1.50 mg/dL [facility] [...] or in patients with acute kidney failure. http://[employer]/DHnkdep http://[employer]/DHMCnkf Specimen Anatomical Collection Method Collection Time Receive d Time (Source) Location / / Volume Laterality Blood specimen 08/14/2017 4:52 AM 018 5:08 (specimen) EST AM EST Resulting Agency Comment Spec In Lab Yonathan Smith MD CHEMISTRY ORDERABLES Performing Organization Address City/[facility]/ZIP Code Phon e Number [address] POCT Glucose (08/14/2017 3:56 AM EST) P athologist Signature POC Glucose 135 65 - 199 [facility] mg/dL [facility] [...] [facility]/ZIP [place] [address] POCT Glucose (08/13/2017 11:13 PM EST) athologist Signature POC Glucose 118 65 - 199 [place] mg/dL [facility] LABORATORY Comment: [...] Organization Address City/State/ZIP [place] [address] (ABNORMAL) POCT Glucose (08/13/2017 8:08 PM EST) athologist Signature POC Glucose 204 (H) 65 - 199 [facility] mg/dL [facility] LABORATORY Comment: [...] Organization Address City/State/ZIP [place] [address] POCT Glucose (08/13/2017 4:02 PM EST) athologist Signature POC Glucose 145 65 - 199 [facility] RYAN mg/dL [facility] LABORATORY Comment: [...] Organization Address City/State/ZIP [place] [address] POCT Glucose (08/13/2017 11:31 AM EST) athologist Signature POC Glucose 179 65 - 199 [facility] mg/dL [facility] LABORATORY Comment: [...] [facility]/ZIP [place] [address] (ABNORMAL) POCT Glucose (08/13/2017 10:16 AM EST) athologist Signature POC Glucose 211 (H) 65 - 199 [facility] mg/dL [facility] LABORATORY Comment: [...] [facility]/ZIP [place] [address] JULIAN, legs, multiple levels (08/13/2017 7:42 AM EST) Component Value Ref Test Analysis [facility] Method Time Signature VB Text Department: Vascular Surgery Lab VASCUBASE Report Patient: [id number] (GREGORY HOANG) CPT: 81626 ICD10: I99.8 Referring Physician: YONATHAN SMITH ?? Indications: s/p R 1,2,3 toe amps with red left foot, need n ew baseline Diabetes mellitus: yes ICD10 Diagnosis Code: I99.8 Findings: Right ?Pressure (mm Hg) ?? JULIAN ??Waveform ?TBI ?? Brachial Artery ?138 ? Dorsalis Pedis (Ankle) Arter y ?132 ? 0.94 ??Parmer- Biphasic ? Posterior Tibial (Ankle) Art anila ??154 ? 1.10 ??Parmer-Biphasic ? Fourth Toe ? 67 ? 0.48 [...] 156 65 - 199 [facility] mg/dL [facility] [...] City/State/[place] [address] (ABNORMAL) Differential, Automated (08/13/2017 5:33 AM EST) Patholo gist Method Time Signature Neutrophils % 77.8 % [facility] LABORATORY Neutr Abs (ANC) 7.83 (H) 1.70 - [facility] 6.10 [facility] x10(3)/[facility] LABORATORY Lymphocytes % 8.4 % [facility] LABORATORY Lymphocytes Abs 0.8 (L) 0.9 - 3.2 [facility] x10(3)/[facility] LABORATORY Monocytes % 8.3 % [facility] LABORATORY Monocyte Abs 0.8 0.3 - 0.9 [facility] x10(3)/[facility] LABORATORY Eosinophils % 4.6 % [facility] LABORATORY Eosinophils Abs 0.5 (H) 0.0 - 0.4 [facility] x10(3)/[facility] LABORATORY Basophils % 0.5 % [facility] LABORATORY Basophils Abs 0.0 0.0 - 0.1 [facility] x10(3)/[facility] LABORATORY Immature Gran % 0.40 [...] 0.04 x10(3)/[facility] LABORATORY Specimen Anatomical Collection Method Collection Time Receive d Time (Source) Location / / Volume Laterality Blood specimen 08/13/2017 5:33 AM 018 6:04 (specimen) EST AM EST Resulting Agency Comment Spec In Lab Yonathan Smith MD HEMATOLOGY ORDERABLES Performing Organization Address City/State/ZIP Code Phon e Number [place] [id number] HOSPITAL LABORATORY Drive (ABNORMAL) Hemogram (08/13/2017 5:33 AM EST) Analysis Performed At Patho logist Time Signature WBC 10.1 (H) 4.0 - 9.5 [facility] x10(3)/[facility] LABORATORY RBC 3.21 (L) 4.58 - [facility] 5.54 [facility] x10(6)/[facility] LABORATORY Hemoglobin 9.2 (L) 13.7 - [facility] 16.5 gm/dL [facility] LABORATORY Hematocrit 29.6 (L) 40.5 - [facility] 48.5 % [facility] LABORATORY MCV 92.2 82.9 - [facility] 93.1 [facility] LABORATORY MCH 28.7 27.5 - [facility] 32.1 pg [facility] LABORATORY MCHC 31.1 (L) 32.0 - [facility] 35.7 gm/dL [facility] LABORATORY Platelets 263 145 - 357 [facility] x10(3)/[facility] LABORATORY RDWSD 54.8 (H) 36.0 - [facility] 45.0 [facility] LABORATORY RDWCV 16.4 (H) 11.4 - [facility] 13.8 % [facility] LABORATORY MPV 9.2 7.6 - 12.9 [facility] LABORATORY nRBC % Auto 0.0 % [facility] LABORATORY nRBC Abs Auto 0.000 0.000 - [facility] 0.000 [facility] x10(3)/[facility] LABORATORY Specimen Anatomical Collection Method Collection Time Receive d Time (Source) Location / / Volume Laterality Blood specimen 08/13/2017 5:33 AM 018 6:04 (specimen) EST AM EST Resulting Agency Comment Spec In Lab Yonathan Smith MD HEMATOLOGY ORDERABLES Performing Organization Address City/State/[place] [address] (ABNORMAL) Prothrombin Time (08/13/2017 [...] City/State/[place] [address] (ABNORMAL) Basic Metabolic Panel (non-fasting) (08/13/2017 5:33 AM EST) P athologist Signature Glucose Lvl 126 65 - 199 [facility] mg/dL [facility] LABORATORY Comment: Diabetes: >=200 mg/dL plus symp toms BUN 18 10 - 20 mg/dL [facility] LABORATORY Creatinine 1.16 0.80 - 1.50 mg/dL [facility] [...] [facility] LABORATORY Estimated GFR >60 >=60 [facility] LABORATORY Comment: The reported eGFR should be multiplied b y 1.2 for patients. The MDRD is not an appropriate measure o f renal function for patients with body mass extremes or in patients with acute kidney failure. http://[employer]/DHnkdep http://[employer]/DHMCnkf Specimen Anatomical Collection Method Collection Time Receive d Time (Source) Location / / Volume Laterality Blood specimen 08/13/2017 5:33 AM 018 6:04 (specimen) EST AM EST Resulting Agency Comment Spec In Lab Yonathan Smith MD CHEMISTRY ORDERABLES Performing Organization Address City/State/ZIP Code Phon e Number [address] POCT Glucose (08/13/2017 4:29 AM EST) athologist Signature POC Glucose 111 65 - 199 [place] [facility] mg/dL [facility] LABORATORY Comment: [...] [facility]/ZIP [place] [address] POCT Glucose (08/12/2017 11:28 PM EST) athologist Signature POC Glucose 164 65 - 199 [place] mg/dL [facility] LABORATORY Comment: [...] [facility]/ZIP Code Phon e Number [address] (ABNORMAL) POCT Glucose (08/12/2017 7:40 PM EST) athologist Signature POC Glucose 209 (H) 65 - 199 [place] mg/dL [facility] LABORATORY Comment: [...] Address City/State/ZIP Code Phon e Number [address] POCT Glucose (08/12/2017 4:24 PM EST) athologist Signature POC Glucose 161 65 - 199 [facility] mg/dL [facility] LABORATORY Comment: [...] Address City/State/ZIP Code Phon e Number [address] POCT Glucose (08/12/2017 12:00 PM EST) athologist Signature POC Glucose 167 65 - 199 [place] mg/dL [facility] LABORATORY Comment: [...] Address City/State/ZIP Code Phon e Number [address] POCT Glucose (08/12/2017 7:25 AM EST) athologist Signature POC Glucose 152 65 - 199 [facility] mg/dL [facility] LABORATORY Comment: [...] City/State/[place] [address] (ABNORMAL) Differential, Automated (08/12/2017 6:29 AM EST) [facility] Method Time Signature Neutrophils % 78.7 % [facility] LABORATORY Neutr Abs (ANC) 7.94 (H) 1.70 - [facility] 6.10 [facility] x10(3)/[facility] LABORATORY Lymphocytes % 8.8 % [facility] LABORATORY Lymphocytes Abs 0.9 0.9 - 3.2 [facility] x10(3)/[facility] LABORATORY Monocytes % 7.8 % [facility] LABORATORY Monocyte Abs 0.8 0.3 - 0.9 [facility] x10(3)/[facility] LABORATORY Eosinophils % 3.9 % [facility] LABORATORY Eosinophils Abs 0.4 0.0 - 0.4 [facility] x10(3)/[facility] LABORATORY Basophils % 0.3 % [facility] LABORATORY Basophils Abs 0.0 0.0 - 0.1 [facility] x10(3)/[facility] LABORATORY Immature Gran % 0.50 [...] 0.05 (H) 0.00 - 0.04 x10(3)/[facility] LABORATORY Specimen Anatomical Collection Method Collection Time Receive d Time (Source) Location / / Volume Laterality Blood specimen 08/12/2017 6:29 AM 018 6:38 (specimen) EST AM EST Resulting Agency Comment Spec In Lab Yonathan Smith MD HEMATOLOGY ORDERABLES Performing Organization Address City/State/ZIP Code Phon e Number [address] (ABNORMAL) Hemogram (08/12/2017 6:29 AM EST) Analysis Performed At Patho logist Time Signature WBC 10.1 (H) 4.0 - 9.5 [facility] x10(3)/[facility] LABORATORY RBC 3.02 (L) 4.58 - [place] 5.54 [facility] x10(6)/[facility] LABORATORY Hemoglobin 8.7 (L) 13.7 - [facility] 16.5 gm/dL [facility] LABORATORY Hematocrit 28.1 (L) 40.5 - [facility] 48.5 % [facility] LABORATORY MCV 93.0 82.9 - [facility] 93.1 [facility] LABORATORY MCH 28.8 27.5 - [place] [facility] 32.1 pg [facility] LABORATORY MCHC 31.0 (L) 32.0 - [place] 35.7 gm/dL [facility] LABORATORY Platelets 223 145 - 357 [facility] x10(3)/[facility] LABORATORY RDWSD 56.1 (H) 36.0 - [place] [facility] 45.0 [facility] LABORATORY RDWCV 16.4 (H) 11.4 - [facility] RYAN 13.8 % [facility] LABORATORY MPV 9.0 7.6 - 12.9 [facility] LABORATORY nRBC % Auto 0.0 % [facility] LABORATORY nRBC Abs Auto 0.000 0.000 - [place] 0.000 [facility] x10(3)/[facility] LABORATORY Specimen Anatomical Collection Method Collection Time Receive d Time (Source) Location / / Volume Laterality Blood specimen 08/12/2017 6:29 AM 018 6:38 (specimen) EST AM EST Resulting Agency Comment Spec In Lab Yonathan Smith MD HEMATOLOGY ORDERABLES Performing Organization Address City/State/ZIP [place] [address] (ABNORMAL) Prothrombin Time (08/12/2017 [...] Organization Address City/State/ZIP [place] [address] (ABNORMAL) Basic Metabolic Panel (non-fasting) (08/12/2017 6:29 AM EST) athologist Signature Glucose Lvl 151 65 - 199 [facility] mg/dL [facility] LABORATORY Comment: Diabetes: >=200 mg/dL plus symp toms BUN 18 10 - 20 mg/dL [facility] LABORATORY Creatinine 1.11 0.80 - 1.50 mg/dL [facility] [...] [facility] LABORATORY Estimated GFR >60 >=60 [facility] LABORATORY Comment: The reported eGFR should be multiplied b y 1.2 for patients. The MDRD is not an appropriate measure o f renal function for patients with body mass extremes or in patients with acute kidney failure. http://[employer]/DHnkdep http://[employer]/DHMCnkf Specimen Anatomical Collection Method Collection Time Receive d Time (Source) Location / / Volume Laterality Blood specimen 08/12/2017 6:29 AM 018 6:38 (specimen) EST AM EST Resulting Agency Comment Spec In Lab Yonathan Smith MD CHEMISTRY ORDERABLES Performing Organization Address City/[facility]/ZIP Code Phon e Number [address] POCT Glucose (08/12/2017 4:08 AM EST) athologist Signature POC Glucose 181 65 - 199 [facility] mg/dL [facility] LABORATORY Comment: [...] Organization Address City/State/ZIP [place] [address] (ABNORMAL) POCT Glucose (08/12/2017 12:17 AM EST) P athologist Signature POC Glucose 221 (H) 65 - 199 [facility] mg/dL [facility] LABORATORY Comment: [...] [facility]/ZIP Code Phon e Number [address] (ABNORMAL) POCT Glucose (08/11/2017 8:52 PM EST) athologist Signature POC Glucose 221 (H) 65 - 199 [place] mg/dL [facility] LABORATORY Comment: [...] [facility]/ZIP [place] [address] POCT Glucose (08/11/2017 5:59 PM EST) athologist Signature POC Glucose 169 65 - 199 [facility] mg/dL [facility] LABORATORY Comment: [...] [facility]/ZIP [place] [address] (ABNORMAL) POCT Glucose (08/11/2017 4:08 PM EST) athologist Signature POC Glucose 240 (H) 65 - 199 [place] mg/dL [facility] LABORATORY Comment: [...] Address City/State/ZIP Code Phon e Number [address] POCT Glucose (08/11/2017 12:04 PM EST) athologist Signature POC Glucose 182 65 - 199 [facility] mg/dL [facility] LABORATORY Comment: [...] Address City/State/ZIP Code Phon e Number [address] POCT Glucose (08/11/2017 7:31 AM EST) athologist Signature POC Glucose 156 65 - 199 [facility]dL [facility] LABORATORY Comment: [...] Address City/State/ZIP Code Phon e Number [address] (ABNORMAL) Differential, Automated (08/11/2017 6:16 AM EST) [facility] Method Time Signature Neutrophils % 83.7 % [facility] LABORATORY Neutr Abs (ANC) 10.76 (H) 1.70 - [facility] 6.10 [facility] x10(3)/[facility] LABORATORY Lymphocytes % 6.0 % [facility] LABORATORY Lymphocytes Abs 0.8 (L) 0.9 - 3.2 [facility] x10(3)/[facility] LABORATORY Monocytes % 7.5 % [facility] LABORATORY Monocyte Abs 1.0 (H) 0.3 - 0.9 [facility] x10(3)/[facility] LABORATORY Eosinophils % 2.0 % [facility] LABORATORY Eosinophils Abs 0.3 0.0 - 0.4 [facility] x10(3)/[facility] LABORATORY Basophils % 0.3 % [facility] LABORATORY Basophils Abs 0.0 0.0 - 0.1 [facility] x10(3)/[facility] LABORATORY Immature Gran % 0.50 [...] 0.06 (H) 0.00 - 0.04 x10(3)/[facility] LABORATORY Specimen Anatomical Collection Method Collection Time Receive d Time (Source) Location / / Volume Laterality Blood specimen 08/11/2017 6:16 AM 018 6:24 (specimen) EST AM EST Resulting Agency Comment Spec In Lab Yonathan Smith MD HEMATOLOGY ORDERABLES Performing Organization Address City/State/[place] [address] (ABNORMAL) Hemogram (08/11/2017 6:16 AM EST) Analysis Performed At Patho logist Time Signature WBC 12.9 (H) 4.0 - 9.5 [facility] x10(3)/[facility] LABORATORY RBC 3.28 (L) 4.58 - [facility] 5.54 [facility] x10(6)/[facility] LABORATORY Hemoglobin 9.5 (L) 13.7 - [facility] 16.5 gm/dL [facility] LABORATORY Hematocrit 29.8 (L) 40.5 - [facility] 48.5 % [facility] LABORATORY MCV 90.9 82.9 - [facility] 93.1 [facility] LABORATORY MCH 29.0 27.5 - [place] 32.1 pg [facility] LABORATORY MCHC 31.9 (L) 32.0 - [place] 35.7 gm/dL [facility] LABORATORY Platelets 236 145 - 357 [facility] x10(3)/[facility] LABORATORY RDWSD 53.5 (H) 36.0 - [facility] 45.0 [facility] LABORATORY RDWCV 16.3 (H) 11.4 - [facility] RYAN 13.8 % [facility] LABORATORY MPV 8.8 7.6 - 12.9 [facility] LABORATORY nRBC % Auto 0.0 % [facility] LABORATORY nRBC Abs Auto 0.000 0.000 - [facility] RYAN 0.000 [facility] x10(3)/[facility] LABORATORY Specimen Anatomical Collection Method Collection Time Receive d Time (Source) Location / / Volume Laterality Blood specimen 08/11/2017 6:16 AM 018 6:24 (specimen) EST AM EST Resulting Agency Comment Spec In Lab Yontahan Smith MD HEMATOLOGY ORDERABLES Performing Organization Address City/State/[place] [address] (ABNORMAL) Prothrombin Time (08/11/2017 [...] [facility]/ZIP [place] [address] Basic Metabolic Panel (non-fasting) (08/11/2017 6:16 AM EST) athologist Signature Glucose Lvl 139 65 - 199 [facility] mg/dL [facility] LABORATORY Comment: Diabetes: >=200 mg/dL plus symp toms BUN 12 10 - 20 mg/dL [facility] LABORATORY Creatinine 0.91 0.80 - 1.50 mg/dL [facility] [...] [facility] LABORATORY Estimated GFR >60 >=60 [facility] LABORATORY Comment: The reported eGFR should be multiplied b y 1.2 for patients. The MDRD is not an appropriate measure o f renal function for patients with body mass extremes or in patients with acute kidney failure. http://[employer]/DHnkdep http://[employer]/DHMCnkf Specimen Anatomical Collection Method Collection Time Receive d Time (Source) Location / / Volume Laterality Blood specimen 08/11/2017 6:16 AM 018 6:24 (specimen) EST AM EST Resulting Agency Comment Spec In Lab Yonathan Smith MD CHEMISTRY ORDERABLES Performing Organization Address City/[facility]/ZIP Code Phon e Number [address] POCT Glucose (08/11/2017 4:07 AM EST) athologist Signature POC Glucose 162 65 - 199 [place] [place] mg/dL [facility] LABORATORY Comment: [...] Address City/State/ZIP Code Phon e Number [address] POCT Glucose (08/10/2017 11:59 PM EST) athologist Signature POC Glucose 166 65 - 199 [place] mg/dL [facility] LABORATORY Comment: [...] Organization Address City/State/ZIP [place] [address] POCT Glucose (08/10/2017 8:12 PM EST) athologist Signature POC Glucose 156 65 - 199 [facility] RYAN mg/dL [facility] LABORATORY Comment: [...] Organization Address City/State/ZIP [place] [address] (ABNORMAL) POCT Glucose (08/10/2017 4:42 PM EST) P athologist Signature POC Glucose 211 (H) 65 - 199 [facility] mg/dL [facility] [...] Organization Address City/State/ZIP Code Phon e Number [place] [id number] HOSPITAL LABOR[address]ORY Drive (ABNORMAL) Differential, Automated (08/10/2017 2:30 PM EST) Patholo gist Method Time Signature Neutrophils % 87.6 % [facility] LABORATORY Neutr Abs (ANC) 9.90 (H) 1.70 - [facility] 6.10 [facility] x10(3)/[facility] L LABORATORY Lymphocytes % 4.3 % [facility] LABORATORY Lymphocytes Abs 0.5 (L) 0.9 - 3.2 [facility] x10(3)/[facility] LABORATORY Monocytes % 6.0 % [facility] LABORATORY Monocyte Abs 0.7 0.3 - 0.9 [facility] x10(3)/[facility] LABORATORY Eosinophils % 1.1 % [facility] LABORATORY Eosinophils Abs 0.1 0.0 - 0.4 [facility] x10(3)/[facility] LABORATORY Basophils % 0.4 % [facility] LABORATORY Basophils Abs 0.0 0.0 - 0.1 [facility] x10(3)/[facility] LABORATORY Immature Gran % [...] 0.07 (H) 0.00 - 0.04 x10(3)/[facility] LABORATORY Specimen Anatomical Collection Method Collection Time Receive d Time (Source) Location / / Volume Laterality Blood specimen 08/10/2017 2:30 PM 018 2:48 (specimen) EST PM EST Resulting Agency Comment Spec In Lab Yonathan Smith MD HEMATOLOGY ORDERABLES Performing Organization Address City/State/[place] [address] (ABNORMAL) Hemogram (08/10/2017 2:30 PM EST) Analysis Performed At Patho logist Time Signature WBC 11.3 (H) 4.0 - 9.5 [facility] x10(3)/[facility] LABORATORY RBC 3.13 (L) 4.58 - [facility] 5.54 [facility] x10(6)/[facility] LABORATORY Hemoglobin 8.9 (L) 13.7 - [facility] 16.5 gm/dL [facility] LABORATORY Hematocrit 28.4 (L) 40.5 - [facility] 48.5 % [facility] LABORATORY MCV 90.7 82.9 - [facility] 93.1 [facility] LABORATORY MCH 28.4 27.5 - [facility] 32.1 pg [facility] LABORATORY MCHC 31.3 (L) 32.0 - [facility] 35.7 gm/dL [facility] LABORATORY Platelets 213 145 - 357 [facility] x10(3)/[facility] LABORATORY RDWSD 53.7 (H) 36.0 - [facility] RYAN 45.0 [facility] LABORATORY RDWCV 16.4 (H) 11.4 - [facility] RYAN 13.8 % [facility] LABORATORY MPV 8.9 7.6 - 12.9 [facility] LABORATORY nRBC % Auto 0.0 % [facility] LABORATORY nRBC Abs Auto 0.000 0.000 - [facility] RYAN 0.000 [facility] x10(3)/[facility] LABORATORY Specimen Anatomical Collection Method Collection Time Receive d Time (Source) Location / / Volume Laterality Blood specimen 08/10/2017 2:30 PM 018 2:48 (specimen) EST PM EST Resulting Agency Comment Spec In Lab Yonathan Smith MD HEMATOLOGY ORDERABLES Performing Organization Address City/State/ZIP Code Phon e Number [address] (ABNORMAL) POCT Glucose (08/10/2017 1:50 PM EST) athologist Signature POC Glucose 243 (H) 65 - 199 [facility] mg/dL [facility] LABORATORY Comment: [...] [facility]/ZIP Code Phon e Number [address] POCT Glucose (08/10/2017 11:21 AM EST) athologist Signature POC Glucose 156 65 - 199 [facility] mg/dL [facility] LABORATORY Comment: [...] [facility]/ZIP [place] [address] (ABNORMAL) Differential, Automated (08/10/2017 10:28 AM EST) [facility] Time Signature Neutrophils % 85.3 % [facility] LABORATORY Neutr Abs (ANC) 9.43 (H) 1.70 - [facility] 6.10 [facility] x10(3)/[facility] L LABORATORY Lymphocytes % 5.5 % [facility] LABORATORY Lymphocytes Abs 0.6 (L) 0.9 - 3.2 [facility] x10(3)/[facility] LABORATORY Monocytes % 5.9 % [facility] LABORATORY Monocyte Abs 0.6 0.3 - 0.9 [facility] x10(3)/[facility] LABORATORY Eosinophils % 2.1 % [facility] LABORATORY Eosinophils Abs 0.2 0.0 - 0.4 [facility] x10(3)/[facility] LABORATORY Basophils % 0.4 % [facility] LABORATORY Basophils Abs 0.0 0.0 - 0.1 [facility] x10(3)/[facility] LABORATORY Immature Gran % 0.80 [...] 0.09 (H) 0.00 - 0.04 x10(3)/[facility] LABORATORY Specimen Anatomical Collection Method Collection Time Receive d Time (Source) Location / / Volume Laterality Blood specimen 08/10/2017 10:28 8 (specimen) AM EST 10:35 AM EST Resulting Agency Comment Spec In Lab Yonathan Smith MD HEMATOLOGY ORDERABLES Performing Organization Address City/State/[place] [address] (ABNORMAL) Hemogram (08/10/2017 10:28 AM EST) Analysis Performed At Patho logist Time Signature WBC 11.0 (H) 4.0 - 9.5 [facility] x10(3)/[facility] LABORATORY RBC 3.02 (L) 4.58 - [facility] 5.54 [facility] x10(6)/[facility] LABORATORY Hemoglobin 8.8 (L) 13.7 - [facility] 16.5 gm/dL [facility] LABORATORY Hematocrit 28.1 (L) 40.5 - [facility] 48.5 % [facility] LABORATORY MCV 93.0 82.9 - [facility] 93.1 [facility] MCH 29.1 27.5 - [place] 32.1 pg [facility] MCHC 31.3 (L) 32.0 - [place] 35.7 gm/dL [facility] Platelets 207 145 - 357 [facility] x10(3)/[facility] LABORATORY RDWSD 55.3 (H) 36.0 - [place] 45.0 [facility] RDWCV 16.4 (H) 11.4 - [facility] RYAN 13.8 % [facility] MPV 9.0 7.6 - 12.9 [facility] LABORATORY nRBC % Auto 0.0 % [facility] nRBC Abs Auto 0.000 0.000 - [facility] RYAN 0.000 [facility] x10(3)/[facility] LABORATORY Specimen Anatomical Collection Method Collection Time Receive d Time (Source) Location / / Volume Laterality Blood specimen 08/10/2017 10:28 8 (specimen) AM EST 10:35 AM EST Resulting Agency Comment Spec In Lab Yonathan Smith MD HEMATOLOGY ORDERABLES Performing Organization Address City/State/[place] [address] VS Angiogram/intervention (vascular) (08/10/2017 [...] 2.5x80 5. Completion RLE angiogram 6. 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 L CARTON LETTERING MACHINE OPERATOR access in the distal L CARTON LETTERING MACHINE OPERATOR. - Closure device: Mynx Technical [...] was then imaged in both stationed and bolus-lius fashion. ??Findings are as described above. ?Amplatz wire was advanced and the sheath was exchanged for a 45cm 5F Destination. V18 and Edmore a nd QuickCross catheters were used to [...] bifurcation. Access appeared in the distal R CARTON LETTERING MACHINE OPERATOR. Closure and sheath removal was [...] 2.5x80 5. Completion RLE angiogram 6. 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 L CARTON LETTERING MACHINE OPERATOR access in the distal L CARTON LETTERING MACHINE OPERATOR. - Closure device: Mynx Technical [...] for a 45cm 5F Destination. V18 and Edmore a nd QuickCross catheters were used to [...] bifurcation. Access appeared in the distal R CARTON LETTERING MACHINE OPERATOR. Closure and sheath removal was [...] Differential, Automated (08/10/2017 5:50 AM EST) [facility] Method Time Signature Neutrophils % 80.1 % [facility] LABORATORY Neutr Abs (ANC) 9.01 (H) 1.70 - [facility] 6.10 [facility] x10(3)/[facility] LABORATORY Lymphocytes % 8.8 % [facility] LABORATORY Lymphocytes Abs 1.0 0.9 - 3.2 [facility] x10(3)/[facility] LABORATORY Monocytes % 8.3 % [facility] LABORATORY Monocyte Abs 0.9 0.3 - 0.9 [facility] x10(3)/[facility] LABORATORY Eosinophils % 2.0 % [facility] LABORATORY Eosinophils Abs 0.2 0.0 - 0.4 [facility] x10(3)/[facility] LABORATORY Basophils % 0.4 % [facility] LABORATORY Basophils Abs 0.0 0.0 - 0.1 [facility] x10(3)/[facility] LABORATORY Immature Gran % 0.40 [...] 0.05 (H) 0.00 - 0.04 x10(3)/[facility] LABORATORY Specimen Anatomical Collection Method Collection Time Receive d Time (Source) Location / / Volume Laterality Blood specimen 08/10/2017 5:50 AM 018 5:59 (specimen) EST AM EST Resulting Agency Comment Spec In Lab Yonathan Smith MD HEMATOLOGY ORDERABLES Performing Organization Address City/State/[place] [address] (ABNORMAL) Hemogram (08/10/2017 5:50 AM EST) Analysis Performed At Patho logist Time Signature WBC 11.3 (H) 4.0 - 9.5 [facility] x10(3)/[facility] LABORATORY RBC 3.15 (L) 4.58 - [facility] 5.54 [facility] x10(6)/[facility] LABORATORY Hemoglobin 8.9 (L) 13.7 - [facility] 16.5 gm/dL [facility] LABORATORY Hematocrit 29.0 (L) 40.5 - [facility] 48.5 % [facility] LABORATORY MCV 92.1 82.9 - [facility] 93.1 [facility] LABORATORY MCH 28.3 27.5 - [facility] RYAN 32.1 pg [facility] LABORATORY MCHC 30.7 (L) 32.0 - [facility] 35.7 gm/dL [facility] LABORATORY Platelets 231 145 - 357 [facility] x10(3)/[facility] LABORATORY RDWSD 53.9 (H) 36.0 - [facility] RYAN 45.0 [facility] LABORATORY RDWCV 16.2 (H) 11.4 - [facility] RYAN 13.8 % [facility] LABORATORY MPV 8.7 7.6 - 12.9 [facility] LABORATORY nRBC % Auto 0.0 % [facility] LABORATORY nRBC Abs Auto 0.000 0.000 - [facility] 0.000 [facility] x10(3)/[facility] LABORATORY Specimen Anatomical Collection Method Collection Time Receive d Time (Source) Location / / Volume Laterality Blood specimen 08/10/2017 5:50 AM 018 5:59 (specimen) EST AM EST Resulting Agency Comment Spec In Lab Yonathan Smith MD HEMATOLOGY ORDERABLES Performing Organization Address City/State/[place] [address] (ABNORMAL) Basic Metabolic Panel (non-fasting) (08/10/2017 5:50 AM EST) athologist Signature Glucose Lvl 135 65 - 199 [facility] mg/dL [facility] [...] [facility] LABORATORY Estimated GFR >60 >=60 [facility] LABORATORY Comment: The reported eGFR should be multiplied b y 1.2 for patients. The MDRD is not an appropriate measure o f renal function for patients with body mass extremes or in patients with acute kidney failure. http://[employer]/DHnkdep http://[employer]/DHMCnkf Specimen Anatomical Collection Method Collection Time Receive d Time (Source) Location / / Volume Laterality Blood specimen 08/10/2017 5:50 AM 018 5:59 (specimen) EST AM EST Resulting Agency Comment Spec In Lab Yonathan Smith MD CHEMISTRY ORDERABLES Performing Organization Address City/[facility]/ZIP [place] [address] (ABNORMAL) Prothrombin Time (08/10/2017 [...] [facility]/ZIP [place] [address] (ABNORMAL) POCT Glucose (08/10/2017 4:01 AM EST) athologist Signature POC Glucose 206 (H) 65 - 199 [facility] mg/dL [facility] [...] [facility]/ZIP Code [place] [address] POCT Glucose (08/10/2017 2:01 AM EST) athologist Signature POC Glucose 188 65 - 199 [place] mg/dL [facility] LABORATORY Comment: [...] Organization Address City/State/ZIP [place] [address] (ABNORMAL) POCT Glucose (08/09/2017 11:42 PM EST) athologist Signature POC Glucose 283 (H) 65 - 199 [facility] mg/dL [facility] LABORATORY Comment: [...] Organization Address City/State/ZIP [place] [address] POCT Glucose (08/09/2017 8:55 PM EST) athologist Signature POC Glucose 182 65 - 199 [facility] mg/dL [facility] LABORATORY Comment: [...] Organization Address City/State/ZIP [place] [address] (ABNORMAL) APTT (08/09/2017 6:42 [...] Performing Organization Address City/[facility]/ZIP [facility] Phon e Number [address] POCT Glucose (08/09/2017 4:41 PM EST) athologist Signature POC Glucose 195 65 - 199 [facility] mg/dL [facility] LABORATORY Comment: [...] [facility]/ZIP [place] [address] POCT Glucose (08/09/2017 12:29 PM EST) athologist Signature POC Glucose 140 65 - 199 [facility] mg/dL [facility] LABORATORY Comment: [...] Organization Address City/State/ZIP [place] [address] POCT Glucose (08/09/2017 9:59 AM EST) P athologist Signature POC Glucose 135 65 - 199 [facility] mg/dL [facility] [...] [facility]/ZIP [place] [address] Specimen to Pathology (08/09/2017 [...] [facility]/ZIP [place] [address] Surgical Pathology Report (08/09/2017 8:40 AM EST) Component Value Ref Test Analysis Performed At Patholo gist Range Method Time Signature Surgical [id number] ? Location: [facility]; [facility] [place][note 2]; A [facility] Report The signing pathologist has [...] Henrique Flower Verified: ??08/13/2017 ?Pathologist Performed at: ??-[facility] Dept. of Pathology, [place], [place] CLINICAL INFORMATION Specimen Submitted: A - [...] City/State/[place] [address] Anaerobic Culture (08/09/2017 8:30 AM EST) [facility] g[facility] Method Time Signature Anaerobic No anaerobic [facility] Culture organisms [facility] LABORATORY Specimen Anatomical Collection Method Collection Time [...] Organization Address City/State/ZIP [place] [address] (ABNORMAL) Abscess/Wound Aspirate Culture (08/09/2017 8:30 AM EST) Patholo gist Method Time Signature Abscess/Wound Moderate mixed [place] Aspirate bacterial ETHEL Culture morphotypes [facility] normal LABORATORY cutaneous leroy (A) Gram Stain Rare White Blood Cells [place] Few Gram Positive Cocci in pairs ETHEL () [facility] LABORATORY Organism Gram Positive [place] Cocci in pairs ETHEL () [facility] LABORATORY Specimen Anatomical [...] GENERAL ORDER ROBSON Performing Organization Address City/[facility]/ZIP Code Phon e Number [address] POCT Glucose (08/09/2017 4:28 AM EST) P athologist Signature POC Glucose 128 65 - 199 [facility] mg/dL [facility] LABORATORY Comment: [...] [facility]/ZIP [place] [address] ABORH Recheck Status (08/09/2017 1:10 AM EST) [facility] Method Time Signature ABORH Type Completed [facility] LABORATORY Specimen Anatomical Collection Method Collection Time Receive d Time (Source) Location / / Volume Laterality Blood specimen 08/09/2017 1:10 AM 018 1:35 (specimen) EST AM EST Resulting Agency Comment Spec In Lab Yonathan Smith MD BLOOD BANK ORDERABLES Performing Organization Address City/[facility]/ZIP [place] [address] Antibody screen (08/09/2017 1:10 AM EST) [facility] Method Time Signature Ab Screen Negative [facility] LABORATORY Expires at 08/12/2017 [facility] [id number] on: [facility] LABORATORY Specimen Anatomical Collection Method Collection Time Receive d Time (Source) Location / / Volume Laterality Blood specimen 08/09/2017 1:10 AM 018 1:35 (specimen) EST AM EST Resulting Agency Comment Spec In Lab Yonathan Smith MD BLOOD BANK ORDERABLES Performing Organization Address City/[facility]/ZIP [place] [address] ABO/Rh Typing (08/09/2017 1:10 [...] [facility]/[place]IP [place] [address] (ABNORMAL) APTT (08/09/2017 1:10 [...] City/State/[place] [address] (ABNORMAL) Differential, Automated (08/09/2017 1:10 AM EST) [facility] Method Time Signature Neutrophils % 76.2 % [facility] LABORATORY Neutr Abs (ANC) 8.59 (H) 1.70 - [facility] 6.10 [facility] x10(3)/[facility] LABORATORY Lymphocytes % 11.0 % [facility] LABORATORY Lymphocytes Abs 1.2 0.9 - 3.2 [facility] x10(3)/[facility] LABORATORY Monocytes % 8.4 % [facility] LABORATORY Monocyte Abs 1.0 (H) 0.3 - 0.9 [facility] x10(3)/[facility] LABORATORY Eosinophils % 3.5 % [facility] LABORATORY Eosinophils Abs 0.4 0.0 - 0.4 [facility] x10(3)/[facility] LABORATORY Basophils % 0.5 % [facility] LABORATORY Basophils Abs 0.1 0.0 - 0.1 [facility] x10(3)/[facility] LABORATORY Immature Gran % 0.40 [...] 0.05 (H) 0.00 - 0.04 x10(3)/[facility] LABORATORY Specimen Anatomical Collection Method Collection Time Receive d Time (Source) Location / / Volume Laterality Blood specimen 08/09/2017 1:10 AM 018 1:19 (specimen) EST AM EST Resulting Agency Comment Spec In Lab Yonathan Smith MD HEMATOLOGY ORDERABLES Performing Organization Address City/State/[place] [address] (ABNORMAL) Hemogram (08/09/2017 1:10 AM EST) Analysis Performed At Patho logist Time Signature WBC 11.3 (H) 4.0 - 9.5 [facility] x[facility](3[facility] LABORATORY RBC 3.47 (L) 4.58 - [facility] 5.54 [facility] x10(6)/[facility] LABORATORY Hemoglobin 10.0 (L) 13.7 - [facility] 16.5 gm/dL [facility] LABORATORY Hematocrit 31.9 (L) 40.5 - [facility] 48.5 % [facility] LABORATORY MCV 91.9 82.9 - [facility] 93.1 [facility] LABORATORY MCH 28.8 27.5 - [facility] 32.1 pg [facility] LABORATORY MCHC 31.3 (L) 32.0 - [facility] 35.7 gm/dL [facility] LABORATORY Platelets 234 145 - 357 [facility] x10(3)/[facility] LABORATORY RDWSD 54.0 (H) 36.0 - [facility] 45.0 [facility] LABORATORY RDWCV 16.2 (H) 11.4 - [facility] 13.8 % [facility] LABORATORY MPV 8.7 7.6 - 12.9 [facility] LABORATORY nRBC % Auto 0.0 % [facility] LABORATORY nRBC Abs Auto 0.000 0.000 - [facility] 0.000 [facility] x10(3)/[facility] LABORATORY Specimen Anatomical Collection Method Collection Time Receive d Time (Source) Location / / Volume Laterality Blood specimen 08/09/2017 1:10 AM 018 1:19 (specimen) EST AM EST Resulting Agency Comment Spec In Lab Yonathan Smith MD HEMATOLOGY ORDERABLES Performing Organization Address City/State/[place] [address] (ABNORMAL) Prothrombin Time (08/09/2017 [...] Organization Address City/State/ZIP Code Phon e Number [place] [id number] [address]OS[address] (ABNORMAL) Basic Metabolic Panel (non-fasting) (08/09/2017 1:10 AM EST) athologist Signature Glucose Lvl 108 65 - 199 [facility] mg/dL [facility] LABORATORY Comment: Diabetes: >=200 mg/dL plus symp toms BUN 34 (H) 10 - 20 mg/dL [facility] LABORATORY Creatinine 1.54 (H) 0.80 - 1.50 mg/dL [place] [...] or in patients with acute kidney failure. [email or web address]/DHnkdep [email or web address]/DHnkf Specimen Anatomical Collection Method Collection Time Receive d Time (Source) Location / / Volume Laterality Blood specimen 08/09/2017 1:10 AM 018 1:19 (specimen) EST AM EST Resulting Agency Comment Spec In Lab Yonathan Smith MD CHEMISTRY ORDERABLES Performing Organization Address City/[facility]/ZIP Code Phon e Number [address] POCT Glucose (08/09/2017 12:05 AM EST) athologist Signature POC Glucose 128 65 - 199 [facility]dL [facility] LABORATORY Comment: [...] [facility]/ZIP [place] [address] (ABNORMAL) POCT Glucose (08/08/2017 7:36 PM EST) athologist Signature POC Glucose 215 (H) 65 - 199 [facility] mg/dL [facility] LABORATORY Comment: [...] [facility]/ZIP [place] [address] (ABNORMAL) POCT Glucose (08/08/2017 6:23 PM EST) athologist Signature POC Glucose 216 (H) 65 - 199 [facility] mg/dL [facility] LABORATORY Comment: Supplemental ranges: <140 mg/dL before meals <180 mg/dL all other times of the day Specimen Anatomical Collection Method Collection Time Receive d Time (Source) Location / / Volume Laterality Blood specimen 08/08/2017 6:23 PM 018 6:23 (specimen) EST PM EST Yonathan Smith MD POINT OF CARE TEST ORDERABLE S Performing Organization Address [facility]/ZIP [place] [address] (ABNORMAL) APTT (08/08/2017 6:00 [...] [facility]/ZIP [place] [address] POCT Glucose (08/08/2017 4:42 PM EST) athologist Signature POC Glucose 78 65 - 199 [facility] mg/dL [facility] LABORATORY Comment: [...] Organization Address City/State/Z[place] [address] (ABNORMAL) POCT Glucose (08/08/2017 4:01 PM EST) P athologist Signature POC Glucose 58 (L) 65 - 199 [facility] mg/dL [facility] LABORATORY Comment: [...] Organization Address City/State/Z[place] [address] POCT Glucose (08/08/2017 11:51 AM EST) P athologist Signature POC Glucose 90 65 - 199 [facility] mg/dL [facility] LABORATORY Comment: [...] Address City/State/ZIP Code Phon e Number [address] (ABNORMAL) APTT (08/08/2017 10:27 [...] [facility]/ZIP Code Phon e Number [address] POCT Glucose (08/08/2017 8:02 AM EST) athologist Signature POC Glucose 178 65 - 199 [facility] mg/dL [facility] [...] [facility]/ZIP [place] [address] (ABNORMAL) APTT (08/08/2017 4:51 AM EST) athologist Signature PTT >160 25 - 35 [facility] (Critical) sec [facility] LABORATORY Comment: Called by: HOWARD, [...] Address City/State/ZIP [place] [address] (ABNORMAL) Differential, Automated (08/08/2017 4:51 AM EST) [facility] Method Time Signature Neutrophils % 77.9 % [facility] LABORATORY Neutr Abs (ANC) 8.17 (H) 1.70 - [facility] 6.10 [facility] x10(3)/[facility] LABORATORY Lymphocytes % 10.3 % [facility] LABORATORY Lymphocytes Abs 1.1 0.9 - 3.2 [facility] x10(3)/[facility] LABORATORY Monocytes % 7.0 % [facility] LABORATORY Monocyte Abs 0.7 0.3 - 0.9 [facility] x10(3)/[facility] LABORATORY Eosinophils % 3.6 % [facility] LABORATORY Eosinophils Abs 0.4 0.0 - 0.4 [facility] x10(3)/[facility] LABORATORY Basophils % 0.5 % [facility] LABORATORY Basophils Abs 0.0 0.0 - 0.1 [facility] x10(3)/[facility] LABORATORY Immature Gran % [...] 0.07 (H) 0.00 - 0.04 x10(3)/[facility] LABORATORY Specimen Anatomical Collection Method Collection Time Receive d Time (Source) Location / / Volume Laterality Blood specimen 08/08/2017 4:51 AM 018 5:14 (specimen) EST AM EST Resulting Agency Comment Spec In Lab Yonathan Smith MD HEMATOLOGY ORDERABLES Performing Organization Address City/State/[place] [address] (ABNORMAL) Hemogram (08/08/2017 4:51 AM EST) Analysis Performed At Patho logist Time Signature WBC 10.5 (H) 4.0 - 9.5 [facility] x10(3[facility] LABORATORY RBC 3.27 (L) 4.58 - [place] 5.54 [facility] x10(6)/[facility] LABORATORY Hemoglobin 9.3 (L) 13.7 - [facility] 16.5 gm/dL [facility] LABORATORY Hematocrit 30.3 (L) 40.5 - [facility] 48.5 % [facility] LABORATORY MCV 92.7 82.9 - [facility] 93.1 [facility] LABORATORY MCH 28.4 27.5 - [place] 32.1 pg [facility] LABORATORY MCHC 30.7 (L) 32.0 - [facility] 35.7 gm/dL [facility] LABORATORY Platelets 252 145 - 357 [facility] x10(3)/[facility] LABORATORY RDWSD 54.6 (H) 36.0 - [facility] 45.0 [facility] LABORATORY RDWCV 16.2 (H) 11.4 - [facility] 13.8 % [facility] LABORATORY MPV 9.1 7.6 - 12.9 [facility] LABORATORY nRBC % Auto 0.0 % [facility] LABORATORY nRBC Abs Auto 0.000 0.000 - [facility] 0.000 [facility] x10(3)/[facility] LABORATORY Specimen Anatomical Collection Method Collection Time Receive d Time (Source) Location / / Volume Laterality Blood specimen 08/08/2017 4:51 AM 018 5:14 (specimen) EST AM EST Resulting Agency Comment Spec In Lab Yonathan Smith MD HEMATOLOGY ORDERABLES Performing Organization Address City/State/ZIP Code Phon e Number [place] [id number] HOSPITAL LAB[address]ORY Drive (ABNORMAL) Prothrombin Time (08/08/2017 [...] City/State/[place] [address] (ABNORMAL) Basic Metabolic Panel (non-fasting) (08/08/2017 4:51 AM EST) athologist Signature Glucose Lvl 229 (H) 65 - 199 [facility] mg/dL [facility] LABORATORY Comment: Diabetes: >=200 mg/dL plus symp toms BUN 35 (H) 10 - 20 mg/dL [facility] LABORATORY Creatinine 1.57 (H) 0.80 - 1.50 mg/dL [place] [...] or in patients with acute kidney failure. http://[employer]/DHnkdep http://[employer]/DHMCnkf Specimen Anatomical Collection Method Collection Time Receive d Time (Source) Location / / Volume Laterality Blood specimen 08/08/2017 4:51 AM 018 5:14 (specimen) EST AM EST Resulting Agency Comment Spec In Lab Yonathan Smith MD CHEMISTRY ORDERABLES Performing Organization Address City/[facility] Phon e Number [address] POCT Glucose (08/08/2017 4:20 AM EST) athologist Signature POC Glucose 193 65 - 199 [facility] mg/dL [facility] LABORATORY Comment: [...] [facility]/ZIP Code Phon e Number [address] POCT Glucose (08/07/2017 11:11 PM EST) P athologist Signature POC Glucose 124 65 - 199 [facility] mg/dL [facility] LABORATORY Comment: [...] [facility]/ZIP [place] [address] (ABNORMAL) APTT (08/07/2017 10:18 [...] HEMATOLOGY ORDERABLES Performing Organization Address [facility]/ZIP [place] [address] POCT Glucose (08/07/2017 8:10 PM EST) athologist Signature POC Glucose 140 65 - 199 [facility] mg/dL [facility] LABORATORY Comment: [...] [facility]/ZIP Code Phon e Number [address] POCT Glucose (08/07/2017 5:27 PM EST) athologist Signature POC Glucose 187 65 - 199 [facility] mg/dL [facility] LABORATORY Comment: [...] [facility]/ZIP Code Phon e Number [address] POCT Glucose (08/07/2017 3:29 PM EST) athologist Signature POC Glucose 86 65 - 199 [facility] mg/dL [facility] LABORATORY Comment: Supplemental ranges: <140 mg/dL before meals <180 mg/dL all other times of the day Specimen Anatomical Collection Method Collection Time Receive d Time (Source) Location / / Volume Laterality Blood specimen 08/07/2017 3:29 PM 018 3:29 (specimen) EST PM EST Yonathan Smith MD POINT OF CARE TEST ORDERABLE S Performing Organization Address [facility] [place] [address] (ABNORMAL) APTT (08/07/2017 2:50 [...] Performing Organization Address City/[facility]/ZIP [facility] [place] [address] (ABNORMAL) POCT Glucose (08/07/2017 2:23 PM EST) athologist Signature POC Glucose 55 (L) 65 - 199 [facility] mg/dL [facility] LABORATORY Comment: [...] Address City/State/ZIP Code Phon e Number [address] POCT Glucose (08/07/2017 12:08 PM EST) P athologist Signature POC Glucose 77 65 - 199 [facility] mg/dL [facility] [...] Organization Address City/State/ZIP [place] [address] (ABNORMAL) Differential, Automated (08/07/2017 7:30 AM EST) Patholo gist Method Time Signature Neutrophils % 73.8 % [facility] LABORATORY Neutr Abs (ANC) 7.17 (H) 1.70 - [facility] 6.10 [facility] x10(3)/[facility] LABORATORY Lymphocytes % 12.2 % [facility] LABORATORY Lymphocytes Abs 1.2 0.9 - 3.2 [facility] x10(3)/[facility] LABORATORY Monocytes % 9.0 % [facility] LABORATORY Monocyte Abs 0.9 0.3 - 0.9 [facility] x10(3)/[facility] LABORATORY Eosinophils % 3.9 % [facility] LABORATORY Eosinophils Abs 0.4 0.0 - 0.4 [facility] x10(3)/[facility] LABORATORY Basophils % 0.6 % [facility] LABORATORY Basophils Abs 0.1 0.0 - 0.1 [facility] x10(3)/[facility] LABORATORY Immature Gran % 0.50 [...] 0.05 (H) 0.00 - 0.04 x10(3)/[facility] LABORATORY Specimen Anatomical Collection Method Collection Time Receive d Time (Source) Location / / Volume Laterality Blood specimen 08/07/2017 7:30 AM 018 7:45 (specimen) EST AM EST Resulting Agency Comment Spec In Lab Yonathan Smith MD HEMATOLOGY ORDERABLES Performing Organization Address City/State/[place] [address] (ABNORMAL) Hemogram (08/07/2017 7:30 AM EST) Analysis Performed At Patho logist Time Signature WBC 9.7 (H) 4.0 - 9.5 [facility] x10(3)/[facility] LABORATORY RBC 3.54 (L) 4.58 - [facility] 5.54 [facility] x10(6)/[facility] LABORATORY Hemoglobin 9.9 (L) 13.7 - [facility] 16.5 gm/dL [facility] LABORATORY Hematocrit 32.3 (L) 40.5 - [facility] 48.5 % [facility] LABORATORY MCV 91.2 82.9 - [facility] 93.1 [facility] LABORATORY MCH 28.0 27.5 - [facility] 32.1 pg [facility] LABORATORY MCHC 30.7 (L) 32.0 - [facility] 35.7 gm/dL [facility] LABORATORY Platelets 312 145 - 357 [facility] x10(3)/[facility] LABORATORY RDWSD 53.2 (H) 36.0 - [facility] 45.0 [facility] RDWCV 16.0 (H) 11.4 - [facility] 13.8 % [facility] LABORATORY MPV 8.9 7.6 - 12.9 [facility] LABORATORY nRBC % Auto 0.0 % [facility] LABORATORY nRBC Abs Auto 0.000 0.000 - [facility] 0.000 [facility] x10(3)/[facility] LABORATORY Specimen Anatomical Collection Method Collection Time Receive d Time (Source) Location / / Volume Laterality Blood specimen 08/07/2017 7:30 AM 018 7:45 (specimen) EST AM EST Resulting Agency Comment Spec In Lab Yonathan Smith MD HEMATOLOGY ORDERABLES Performing Organization Address City/State/[place] [address] (ABNORMAL) Basic Metabolic Panel (non-fasting) (08/07/2017 7:30 AM EST) P athologist Signature Glucose Lvl 80 65 - 199 [facility] mg/dL [facility] LABORATORY Comment: Diabetes: >=200 mg/dL plus symp toms BUN 31 (H) 10 - 20 mg/dL [facility] LABORATORY Creatinine 1.22 0.80 - 1.50 mg/dL [facility] [...] or in patients with acute kidney failure. [email or web address] [email or web address] Specimen Anatomical Collection Method Collection Time Receive d Time (Source) Location / / Volume Laterality Blood specimen 08/07/2017 7:30 AM 018 7:45 (specimen) EST AM EST Resulting Agency Comment Spec In Lab Yonathan Smith MD CHEMISTRY ORDERABLES Performing Organization Address City/[facility]/ZIP Code Phon e Number [address] POCT Glucose (08/07/2017 7:27 AM EST) athologist Signature POC Glucose 81 65 - 199 [facility] mg/dL [facility] [...] [facility]/ZIP Code Phon e Number [address] APTT (08/07/2017 7:04 [...] [facility]/ZIP Code Phon e Number [address] (ABNORMAL) Prothrombin Time (08/07/2017 [...] Address City/State/ZIP Code Phon e Number [address] POCT Glucose (08/07/2017 4:03 AM EST) athologist Signature POC Glucose 93 65 - 199 [facility] mg/dL [facility] LABORATORY Comment: [...] Address City/State/ZIP Code Phon e Number [address] POCT Glucose (08/07/2017 12:04 AM EST) athologist Signature POC Glucose 107 65 - 199 [facility] mg/dL [facility] LABORATORY Comment: [...] Address City/State/ZIP Code Phon e Number [address] POCT Glucose (08/06/2017 7:56 PM EST) P athologist Signature POC Glucose 178 65 - 199 [facility] mg/dL [facility] LABORATORY Comment: [...] Address City/State/ZIP Code Phon e Number [address] [id number] (08/06/2017 2:32 PM EST) Component Value Ref Test Analysis Performed At Patholo gist Range Method Time Signature VB Text Department: Vascular Surgery Lab VASCUBASE Report Patient: [id number] (GREGORY HOANG) CPT: [id number] ICD10: I99.8 Referring Physician: YONATHAN SMITH ?? [...]
Routine documented in this encounter Care Teams Line Tester Relationship Specialty Start Date End Date Lovely Vicente MD PCP - General 04/16/[address] [place] [address] documented as of this encounter
--- OUTSIDE RECORDS SUMMARY | 2022-05-08 02:24 | XMS_ITS | Encounter Summary ---
:1945 Author Organization [facility] [place] [address] Care Team Providers Name Role Phone Lovely Vicente MD Primary Care Provider Reason for Visit Auth/Cert Specialty Diagnoses / Procedures Referred By Contact Refer red To Contact Diagnoses Critical lower limb ischemia CELLULITIS RT FOOT Procedures EMERGENCY Referral ID Status Reason Start Date Expiration Date Visits Requ ested Visits Authorized [id number] 1 1 Encounter Details Date Type Department Care Team Description 08/06/2017 Laboratory Appointment Lab [place] [facility] [facility] [place] [address] Social History Tobacco Use Types Packs/Day [...] MD [facility] er [address] [place] 0[address] (Wo rk) 05/28/2022 Laboratory Appointment Lab 05/28/2022 Office Visit Cardiology Zulma Dolan MD [facility] [place] [address] Liz Poole PA [facility] [place] [address] 06/10/2022 Office Visit Dermatology Laura Scherer MD [facility] ER DR [address]MAT [facility] [place], [place] 0[address] (Wo rk) documented as of [...] 20 - 40 [facility] mg/dL [facility] Comment: Prealbumin levels are generally [...] Organization Address City/State/[place] [address] (ABNORMAL) Basic Metabolic Panel (non-fasting) (08/06/2017 12:32 PM EST) P athologist Signature Glucose Lvl 92 65 - 199 [facility] mg/dL [facility] Comment: Diabetes: >=200 [...] or in patients with acute kidney failure. [email or web address] [email or web address] http://[employer]/DHMCnkf Specimen Anatomical Collection Method Collection Time Receive d Time (Source) Location / / Volume Laterality Blood specimen 08/06/2017 12:32 8 1:15 (specimen) PM EST PM EST Resulting Agency Comment Spec In Lab Arik Clement MD CHEMISTRY ORDERABLES Performing Organization Address City/State/[place] [address] (ABNORMAL) Hemogram (08/06/2017 12:32 PM EST) Analysis Performed At Patho logist Time Signature WBC 11.8 (H) 4.0 - 9.5 [facility] x10(3)/[facility] LABORATORY RBC 3.49 (L) 4.58 - [facility] 5.54 [facility] x10(6)/[facility] LAB[facility]ATORY Hemoglobin 9.9 (L) 13.7 - [facility] 16.5 gm/dL [facility] Hematocrit 32.0 (L) 40.5 - [facility] 48.5 % [facility] MCV 91.7 82.9 - [facility] 93.1 [facility] LABORATORY MCH 28.4 27.5 - [facility]ATALINA DAVIS 32.1 pg [facility] MCHC 30.9 (L) 32.0 - [place] DAVIS 35.7 gm/dL [facility] Platelets 326 145 - 357 [facility] x10(3)/[facility] LABORATORY RDWSD 53.4 (H) 36.0 - [place] DAVIS 45.0 [facility] LABORATORY RDWCV 16.0 (H) 11.4 - [place] RYAN 13.8 % [facility] MPV 9.1 7.6 - 12.9 [facility] LABORATORY nRBC % Auto 0.0 % [facility] LABORATORY nRBC Abs Auto 0.000 0.000 - [place] DAVIS 0.000 [facility] x10(3)/[facility] LABORATORY Specimen Anatomical Collection Method Collection Time Receive d Time (Source) Location / / Volume Laterality Blood specimen 08/06/2017 12:32 8 1:15 (specimen) PM EST PM EST Resulting Agency Comment Spec In Lab Arik Clement MD HEMATOLOGY ORDERABLES Performing Organization Address City/State/ZIP Code Phon e Number [place] [phone] documented in this encounter Visit Diagnoses Diagnosis Ischemia of foot Unspecified circulatory system disorder documented in this encounter Care Teams Wheat Inspector Relationship Specialty Start Date End Date Lovely Vicente MD PCP - General 04/16/[address] [place] [address] documented as of this encounter
--- OUTSIDE RECORDS SUMMARY | 2022-05-08 02:24 | XMS_ITS | Encounter Summary ---
:1945 Author Organization [facility] [place] [address] Care Team Providers Name Role Phone Lovely Vicente MD Primary Care Provider Reason for Visit Reason Comments Foot Ulcer WOUND CHECK Auth/Cert Specialty Diagnoses / Procedures Referred By Contact Refer red To Contact Diagnoses Critical lower limb ischemia CELLULITIS RT FOOT Procedures EMERGENCY Referral ID Status Reason Start Date Expiration Date Visits Requ ested Visits Authorized [id number] 1 1 Encounter Details Date Type Department Care Team Description 08/06/2017 [facility] ischemia [facility] [address] [place], [place] VASCULAR SURGERY [id number] [place] [address] [phone] Social History Tobacco Use Types Packs/Day Years [...] Smith MD - 08/06/2017 1:00 PM EST [facility] staff: 1. RIGHT leg CLI [...] Zulma Dolan MD [facility] [address] [place], [place] [address] (Wo ) 05/28/2022 Laboratory Appointment Lab 05/28/2022 Office Visit Cardiology Zulma Dolan MD [facility] [place] [address] Liz Poole PA [facility] [place] [address] 06/10/2022 Office Visit Dermatology Laura Scherer MD [facility] ER DR [address]-DERMAT [place], [place] [address] (Wo rk) documented as of this encounter Visit Diagnoses Diagnosis Critical lower limb ischemia Unspecified circulatory system disorder documented in this encounter Care Teams Medical Cost Consultant Relationship Specialty Start Date End Date Lovely Vicente MD PCP - General 04/16/[address] [place], [place] [address] documented as of this encounter
--- OUTSIDE RECORDS SUMMARY | 2022-05-08 02:24 | XMS_ITS | Encounter Summary ---
:1945 Author Organization [facility] [place] [address] Care Team Providers Name Role Phone Lovely Vicente MD Primary Care Provider Reason for Visit Auth/Cert Specialty Diagnoses / Procedures Referred By Contact Refer red To Contact Diagnoses Critical lower limb ischemia CELLULITIS RT FOOT Procedures EMERGENCY Referral ID Status Reason Start Date Expiration Date Visits Requ ested Visits Authorized [id number] 1 1 Encounter Details Date Type Department Care Team Description 08/06/2017 Hospital Encounter [facility] [place] [address] Social History Tobacco Use Types Packs/Day [...] Dolan MD [facility] Dr [place], [place] [address] (Wo rk) 05/28/2022 Laboratory Appointment Lab 05/28/2022 Office Visit Cardiology Zulma Dolan MD [facility] [place] [address] Liz Poole PA [facility] [place] [address] 06/10/2022 Office Visit Dermatology Laura Scherer MD [facility] DR [address]DERMAT [place], [place] 0[address] (Wo rk) documented as of this encounter Visit Diagnoses Not on filedocumented in this encounter Care Teams Supervisor Cell Room Relationship Specialty Start Date End Date Lovely Vicente MD PCP - General 04/16/[address] [place] [address] documented as of this encounter
--- OUTSIDE RECORDS SUMMARY | 2022-05-08 02:24 | XMS_ITS | Encounter Summary ---
:1945 [place] [address] Care Team Providers Name Role Phone Lovely Vicente MD Primary Care Provider Encounter Details Date Type Department Care Team Description 08/05/2017 Notes Only Vascular Surgery at [facility] [place], [place] [place] [address] VASCULAR SURGERY [phone] [place], [place] [address] (Wo rk) Social History Tobacco [...] Zulma Dolan MD [facility] [place], [place] [address] (Wo rk) 05/28/2022 Laboratory Appointment Lab 05/28/2022 Office Visit Cardiology Zulma Dolan MD [facility] [place] [address] Liz Poole PA [facility] [place] [address] 06/10/2022 Office Visit Dermatology Laura Scherer MD [facility] [address]DERMAT [place], [place] [address] (Wo rk) documented as of this encounter Visit Diagnoses Not on filedocumented in this encounter Care Teams Toy Designer Relationship Specialty Start Date End Date Lovely Vicente MD PCP - General 04/16/15 [facility] [address] [place] [address] documented as of this encounter
--- OUTSIDE RECORDS SUMMARY | 2022-05-08 02:24 | XMS_ITS | Encounter Summary ---
:1945 Author Organization [facility] [address] Care Team Providers Name Role Phone Lovely Vicente MD Primary Care Provider Encounter Details Date Type Department Care Team Description 08/06/2017 Orders Only Vascular Surgery at [facility] [place] APRN Ischemia of foot [facility] [place] [address] VASCULAR SURGERY [phone] [place], [place] [address] (Wo rk) Social History Tobacco [...] [facility] er [place], [place] [address] (Wo rk) 05/28/2022 Laboratory Appointment Lab 05/28/2022 Office Visit Cardiology Zulma Dolan MD [facility] [place] [address] Liz Poole PA [facility] [place] [address] 06/10/2022 Office Visit Dermatology Laura Scherer MD [facility] ER DR TE[address] GR[address]DERMAT [place], [place] [address] (Wo [...] 444 ms MUSE SYSTEM (Bezet) Calculated P [place] 44 degrees MUSE SYSTEM Calculated R [place] -31 degrees MUSE SYSTEM Calculated T [place] 106 degrees MUSE SYSTEM INTERPRETATION Normal sinus [...] (L) 20 - 40 [place]INA RYAN mg/dL [facility] Comment: Prealbumin levels are [...] Organization Address City/State/[place] [address] (ABNORMAL) Basic Metabolic Panel (non-fasting) (08/06/2017 12:32 PM EST) athologist Signature Glucose Lvl 92 65 - 199 [facility] mg/dL [facility] Comment: Diabetes: >=200 mg/dL plus symp toms BUN 29 (H) 10 - 20 mg/dL [facility] Creatinine 1.33 0.80 - 1.50 mg/dL [facility] [...] mg/dL [facility] LAB[facility] Estimated GFR 53 (L) >=60 [facility] Comment: The reported eGFR should be multiplied b y 1.2 for patients. The MDRD is not an appropriate measure o f renal function for patients with body mass extremes or in patients with acute kidney failure. http://[employer]/DHnkdep http://[employer]/DHMCnkf Specimen Anatomical Collection Method Collection Time Receive d Time (Source) Location / / Volume Laterality Blood specimen 08/06/2017 12:32 8 1:15 (specimen) PM EST PM EST Resulting Agency Comment Spec In Lab Arik Clement MD CHEMISTRY ORDERABLES Performing Organization Address City/State/[place] [address] (ABNORMAL) Hemogram (08/06/2017 12:32 PM EST) Analysis Performed At Patho logist Time Signature WBC 11.8 (H) 4.0 - 9.5 [facility] x10(3)/[facility] LABORATORY RBC 3.49 (L) 4.58 - [facility] 5.54 [facility] x10(6)/[facility] LABORATORY Hemoglobin 9.9 (L) 13.7 - [facility] 16.5 gm/dL [facility]ORATORY Hematocrit 32.0 (L) 40.5 - [facility] 48.5 % [facility] LABORATORY MCV 91.7 82.9 - [facility] 93.1 [facility] LABORATORY MCH 28.4 27.5 - [facility] 32.1 pg [facility] LABORATORY MCHC 30.9 (L) 32.0 - [facility] 35.7 gm/dL [facility] LABORATORY Platelets 326 145 - 357 [facility] x10(3)/[facility] LABORATORY RDWSD 53.4 (H) 36.0 - [facility] 45.0 [facility] LABORATORY RDWCV 16.0 (H) 11.4 - [facility] 13.8 % [facility] LABORATORY MPV 9.1 7.6 - 12.9 [facility] LABORATORY nRBC % Auto 0.0 % [facility] LABORATORY nRBC Abs Auto 0.000 0.000 - [facility] 0.000 [facility] x10(3)/[facility] LABORATORY Specimen Anatomical Collection Method Collection Time Receive d Time (Source) Location / / Volume Laterality Blood specimen 08/06/2017 12:32 8 1:15 (specimen) PM EST PM EST Resulting Agency Comment Spec In Lab Arik Clement MD HEMATOLOGY ORDERABLES Performing Organization Address City/State/[place] [address] documented in this encounter Visit Diagnoses Diagnosis Ischemia of foot Unspecified circulatory system disorder documented in this encounter Care Teams Car Bracer Relationship Specialty Start Date End Date Lovely Vicente MD PCP - General 04/16/[address] [place] [address] documented as of this encounter
--- OUTSIDE RECORDS SUMMARY | 2022-05-08 02:25 | XMS_ITS | Encounter Summary ---
:1945 Author Organization [facility] Address [facility] [place] [address] Care Team Providers Name Role Phone Lovely Vicente MD Primary Care Provider Encounter Details Date Type Department Care Team Description 07/29/2017 Transcribe Orders Laboratory Lovely Vicente, Coronary artery rupture; [facility] Medical Ischemic cardiomyopathy; [facility] [address] Atherosclerosis of barrow co ronary artery, angina presence unspecified, unspecified whether barrow or transplanted heart; [place], [place] [address] Essential hypertension, malignant; [address] [place], [place] 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 er [place], [place] [address] (Wo rk) 05/28/2022 Laboratory Appointment Lab 05/28/2022 Office Visit Cardiology Zulma Dolan MD [facility] [place] [address] Liz Poole PA [facility] [place] [address] 06/10/2022 Office Visit Dermatology Laura Scherer MD [facility] ER DR [address]MAT [place], [place] 0[address] (Wo rk) Scheduled Orders Name Type Priority Associated Diagnoses Order S chedule Lab Use Only, Fax Lab Routine Coronary arter y rupture Expected: 07/29/2017 Request Ischemic cardiom yopathy (Approximate), Atherosclerosis of barrow Ex jose: 07/29/2018 coronary artery, angina presence unspecified, unspecified whether barrow or transplanted heart Essential hypertension, malignant documented as of this encounter Results Uric acid (08/04/2017 12:55 PM EST) P athologist Signature Uric Acid 7.1 3.5 - 8.5 [facility] mg/dL [facility] Specimen Anatomical Collection Method Collection Time Receive d Time (Source) Location / / Volume Laterality Blood specimen 08/04/2017 12:55 8 1:01 (specimen) PM EST PM EST Resulting Agency Comment Spec In Lab Lovely Vicente MD CHEMISTRY ORDERABLES Performing Organization Address City/State/[place] [address] (ABNORMAL) Hemogram (08/04/2017 12:55 PM EST) Analysis Performed At Patho logist Time Signature WBC 15.8 (H) 4.0 - 9.5 [facility] x10(3)/[facility] LABORATORY RBC 3.48 (L) 4.58 - [facility] 5.54 [facility] x10(6)/[facility] LABORATORY Hemoglobin 9.9 (L) 13.7 - [facility] 16.5 gm/dL [facility] Hematocrit 31.4 (L) 40.5 - [facility]AL[facility] DAVIS 48.5 % [facility]ATORY MCV 90.2 82.9 - [facility] 93.1 [facility] LABORATORY MCH 28.4 27.5 - KATALINA RYAN 32.1 pg [facility] LABORATORY MCHC 31.5 (L) 32.0 - [facility] ZHAORYAN 35.7 gm/dL [facility]OR[facility] Platelets 310 145 - 357 [facility] x10(3)/[facility] LABORATORY RDWSD 51.8 (H) 36.0 - K[place]ALINA RYAN 45.0 [facility] LABORATORY RDWCV 15.8 (H) 11.4 - [facility] 13.8 % [facility] LABORATORY MPV 8.9 7.6 - 12.9 [facility] LABORATORY nRBC % Auto 0.0 % [facility] LABORATORY nRBC Abs Auto 0.000 0.000 - [facility] 0.000 [facility] x10(3)/[facility] LABORATORY Specimen Anatomical Collection Method Collection Time Receive d Time (Source) Location / / Volume Laterality Blood specimen 08/04/2017 12:55 8 1:01 (specimen) PM EST PM EST Resulting Agency Comment Spec In Lab Lovely Vicente MD HEMATOLOGY ORDERABLES Performing Organization Address City/State/ZIP Code Phon e Number [place] [phone] HOSP[address] LAB[address]ORY [address] (ABNORMAL) Comprehensive metabolic panel (non-fasting) (08/04/2017 12:55 PM EST) P athologist Signature Glucose Lvl 208 (H) 65 - 199 [facility] mg/dL [facility] [...] HOSPITAL LABORATORY Estimated GFR 43 (L) >=60 [facility] Comment: The reported eGFR should be multiplied b y 1.2 for patients. The MDRD is not an appropriate measure o f renal function for patients with body mass extremes or in patients with acute kidney failure. http://[employer]/DHnkdep http://[employer]/DHMCnkf Specimen Anatomical Collection Method Collection Time Receive d Time (Source) Location / / Volume Laterality Blood specimen 08/04/2017 12:55 8 1:01 (specimen) PM EST PM EST Resulting Agency Comment Spec In Lab Lovely Vicente MD CHEMISTRY ORDERABLES Performing Organization Address City/State/[place] [address] (ABNORMAL) Hemoglobin A1c (08/04/2017 [...] See note mg/dL KATALINA DAVIS [facility] LAB[facility]ORY Comment: Estimated Average Glucose [...] into estimated average glucose values. ??Diabetes Care 2008:31(8):8604-1904. Specimen Anatomical Collection Method Collection Time Receive d Time (Source) Location / / Volume Laterality Blood specimen 08/04/2017 12:55 8 1:01 (specimen) PM EST PM EST Resulting Agency Comment Spec In Lab Lovely Vicente MD CHEMISTRY ORDERABLES Performing Organization Address City/State/[place] [address] (ABNORMAL) Prothrombin Time (08/04/2017 [...] Organization Address City/State/[place] [address] documented in this encounter Visit Diagnoses Diagnosis Coronary artery rupture Acute myocardial infarction, unspecified site, episode of care unspecified Ischemic cardiomyopathy Other specified forms of chronic ischemi c heart disease Atherosclerosis of barrow coronary arter y, angina presence unspecified, unspecified whether barrow or transplanted heart Essential hypertension, malignant Diabetes mellitus due to underlying cond ition with diabetic nephropathy, unspecified long-term insulin use status documented in this encounter Care Teams Pharmacy Specialist Relationship Specialty Start Date End Date Lovely Vicente MD PCP - General 04/16/[address] [place] [address] documented as of this encounter
--- OUTSIDE RECORDS SUMMARY | 2022-05-08 02:25 | XMS_ITS | Encounter Summary ---
:1945 [place] [address] Care Team Providers Name Role Phone Lovely Vicente MD Primary Care Provider Encounter Details Date Type Department Care Team Description 07/29/2017 Telephone Pain Aurelia Crawford MD [facility] [place] [address] PAIN CLINIC [phone] [place], [place] 0[address] (Wo rk) Social History Tobacco [...] Dolan MD [facility] Dr [place], [place] [address] (Wo rk) 05/28/2022 Laboratory Appointment Lab 05/28/2022 Office Visit Cardiology Zulma Dolan MD [facility] [place] [address] Liz Poole PA [facility] [place] [address] 06/10/2022 Office Visit Dermatology Laura Scherer MD [facility] DR [address] [place], [place] 0[address] (Wo rk) documented as of this encounter Visit Diagnoses Not on filedocumented in this encounter Care Teams Glass Breaker Relationship Specialty Start Date End Date Lovely Vicente MD PCP - General 04/16/[address] [place] [address] [address] [place] [address] documented as of this encounter
--- OUTSIDE RECORDS SUMMARY | 2022-05-08 02:25 | XMS_ITS | Encounter Summary ---
:1945 Author Organization [facility] [place] [address] Care Team Providers Name Role Phone Loevly Vicente MD Primary Care Provider Reason for Visit Reason Comments Deep Vein Thrombosis Auth/Cert Specialty Diagnoses / Procedures Referred By Contact Refer red To Contact Diagnoses Critical lower limb ischemia CELLULITIS RT FOOT Procedures EMERGENCY Referral ID Status Reason Start Date Expiration Date Visits Requ ested Visits Authorized [id number] 1 1 Encounter Details Date Type Department Care Team Description 08/04/2017 Office Visit Vascular Surgery at [facility] itical lower limb [facility] ischemia [facility] [address] [place], [place] VASCULAR SURGERY [id number] [place] [address] [phone] Social History Tobacco Use Types Packs/Day Years [...] discharged on Coumadin. ??He presented to [facility] on 07/20 with mottled toes on the [...] Zulma Dolan MD [facility] [place] [address] (Wo rk) 05/28/2022 Laboratory Appointment Lab 05/28/2022 Office Visit Cardiology Zulma Dolan MD [facility] [place] [address] Liz Poole PA [facility] [place] [address] 06/10/2022 Office Visit Dermatology Laura Scherer MD [facility] ER DR [address] [place], [place] 0375 (Wo rk) documented as of this encounter Visit Diagnoses Diagnosis Critical lower limb ischemia Unspecified circulatory system disorder documented in this encounter Care Teams Charter Coach Driver Relationship Specialty Start Date End Date Lovely Vicente MD PCP - General 04/16/15 [facility] [address] [place], [place] [address] documented as of this encounter
--- OUTSIDE RECORDS SUMMARY | 2022-05-08 02:25 | XMS_ITS | Encounter Summary ---
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 [...] SETUP performed by Manny Mcknight MD at [facility] MAIN OR ??? PRO CABG, ARTERIAL, SINGLE N/A 07/07/2017 @CABG, USING ARTERIAL GRAFT;SINGLE ARTERIAL GRAFT (WRVU 33.75) performed by Yuan Retana MD at [facility] MAIN OR ??? PRO CABG, ARTERY-VEIN, TWO N/A 07/07/2017 @CABG, TWO VENOUS GRAFTS & ARTERIAL GRAFT (WRVU 7.93) performed by Yuan Retana MD at [facility] MAIN OR ??? PRO COLONOSCOPY, REMFlash MOKC, SNARE 01/16/2014 COLONOSCOPY, POLYPECTOMY, REMOVAL LESION BY SNARE performed by Nohemi Jaimes MD at [facility] ENDOSCOPY ??? PRO ENDOSCOPY W/VIDEO-ASST VEIN HARVEST, CABG Right 07/07/2017 ENDOSCOPIC HARVEST VEIN(S) FOR CABG (WRVU 0.31) performed by Yuan Retana MD at [facility] MAIN OR ??? PRO THYROIDECTOMY 03/28/2013 THYROIDECTOMY, TOTAL OR COMPLETE performed by Manny Mcknight MD at 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 Hank Zhang Vascular Surgery, PGY2 Pager #[phone] Associated attestation - Arik Clement MD - [...] Cardiology Zulma Dolan MD [facility] [place], [place] [address] (Wo rk) 05/28/2022 Laboratory Appointment Lab 05/28/2022 Office Visit Cardiology Zulma [place]olan [place] [address] Liz Poole PA [facility] [place] [address] 06/10/2022 Office Visit Dermatology Laura Scherer MD [facility] DR [address] [place], [place] [address] (Wo rk) documented as of [...] Department: Vascular Surgery Lab VASCUBASE Report Patient: [id number] (GREGORY FATIMA) CPT: 25323 ICD10: I82.541 Referring Physician: TAMIKO JIMÉNEZ ?? [...] Glucose 128 65 - 199 [facility] mg/dL [facility] LABORATORY [...] Address City/State/ZIP Code Phon e Number [address] (ABNORMAL) D-Dimer, Quantitative (07/29/2017 2:15 PM EST) [facility] AudioCatch Method Time Signature D-Dimer, Quant 1,699 (H) 0 - 500 [facility] FEU ng/ml [facility] LABOR[facility]ORY Comment: The D-Dimer assay is used [...] Organization Address City/State/[place] [address] (ABNORMAL) Differential, Automated (07/29/2017 2:15 PM EST) [facility] AudioCatch Method Time Signature Neutrophils % 82.5 % [facility] LABORATORY Neutr Abs (ANC) 10.21 (H) 1.70 - [facility] 6.10 [facility] x10(3)/[facility] L LABORATORY Lymphocytes % 7.1 % [facility] LABORATORY Lymphocytes Abs 0.9 0.9 - 3.2 [facility] x10(3)/[facility] LABORATORY Monocytes % 6.5 % [facility] LABORATORY Monocyte Abs 0.8 0.3 - 0.9 [facility] x10(3)/[facility] LABORATORY Eosinophils % 2.7 % [facility] LABORATORY Eosinophils Abs 0.3 0.0 - 0.4 [facility] x10(3)/[facility] LABORATORY Basophils % 0.6 % [facility] LABORATORY Basophils Abs 0.1 0.0 - 0.1 [facility] x10(3)/[facility] LABORATORY Immature [...] Address City/State/[place] [address] (ABNORMAL) Hemogram (07/29/2017 2:15 PM EST) Analysis Performed At Patho logist Time Signature WBC 12.4 (H) 4.0 - 9.5 [facility] x10(3)/[facility] LABORATORY RBC 4.17 (L) 4.58 - [facility] 5.54 [facility] x10(6)/[facility] LABORATORY Hemoglobin 12.1 (L) 13.7 - [facility] 16.5 gm/dL [facility] LABORATORY Hematocrit 38.1 (L) 40.5 - [facility] 48.5 % [facility] LABORATORY MCV 91.4 82.9 - [facility] 93.1 [facility] LABORATORY MCH 29.0 27.5 - [facility] 32.1 pg [facility] LABORATORY MCHC 31.8 (L) 32.0 - [facility] 35.7 gm/dL [facility] LABORATORY Platelets 204 145 - 357 [facility] x10(3)/[facility] LABORATORY RDWSD 50.5 (H) 36.0 - [facility] 45.0 [facility] LABORATORY RDWCV 15.3 (H) 11.4 - [facility] 13.8 % [facility] LABORATORY MPV 9.4 7.6 - 12.9 [facility] LABORATORY nRBC % Auto 0.0 % [facility] LABORATORY nRBC Abs Auto 0.000 0.000 - [facility] 0.000 [facility] x10(3)/[facility] LABORATORY Specimen Anatomical Collection Method Collection Time Receive d Time (Source) Location / / Volume Laterality Blood specimen 07/29/2017 2:15 PM 018 2:36 (specimen) EST PM EST Resulting Agency Comment Spec In Lab Tamiko Jiménez MD HEMATOLOGY ORDERABLES Performing Organization Address City/State/[place] [address] (ABNORMAL) Prothrombin Time (07/29/2017 2:15 PM EST) P athologist Signature PT 24.4 (H) 11.8 - 14.0 [facility] LABORATORY INR 2.2 (H) 0.9 - 1.1 [facility] [...] City/State/ZIP Code Phon e Number [place] [id number]OS[address] LAB[address] Arterial Duplex Leg, Unil (07/29/2017 11:50 AM EST) Component Value Ref Test Analysis Performed At [facility] Range Method Time Signature VB Text Department: Vascular Surgery Lab VASCUBASE Report Patient: [id number] (GREGORY FATIMA) CPT: 23912 ICD10: Z09;I97.610 Referring Physician: TAMIKO JIMÉNEZ ?? [...] Department: Vascular Surgery Lab VASCUBASE Report Patient: [id number] (GREGORY FATIMA) CPT: 23506 ICD10: I82.441 Referring Physician: TAMIKO JIMÉNEZ ?? [...] he calf. Notification: Marquis Pathak MD (pager #[phone]) was notif ied of the preliminary findings. [...] STAT documented in this encounter Care Teams Parcel Post Weigher Relationship Specialty Start Date End Date Lovely Vicente MD PCP - General 04/16/[address] [place] [address] [address] [place] [address] documented as of this encounter
--- OUTSIDE RECORDS SUMMARY | 2022-05-08 02:25 | XMS_ITS | Encounter Summary ---
:1945 Author Organization [facility] [place] [address] Care Team Providers Name Role Phone Lovely Vicente MD Primary Care Provider Reason for Visit Reason Comments Pain Management Ankle Pain Toe Pain Encounter Details Date Type Department Care Team Description 07/30/2017 Office Visit Pain Management at [facility], Per ipheral neuropathy Tucker JAVASCRIPT PROGRAMMER due to ischemia [facility] [address], [place], [place] [phone] Social History Tobacco Use Types Packs/Day Years [...] Soares APRN - 07/30/2017 1:45 PM EST [facility] [place] [address] Phone: PAIN MANAGEMENT NEW PATIENT / CONSULTATION NOTE DATE OF VISIT 07/30/2017 Patient Don Fatima 1945 REFERRING PROVIDER Lovely Vicente MD [address] [place] [address] PRIMARY CARE PROVIDER Lovely Vicente MD CHIEF [...] THERAPIES: Nothing MEDICATIONS The [place] Prescription Monitoring Program was checked and no [...] performed by Nohemi Jaimes MD at [facility] ENDOSCOPY ??? PRO ENDOSCOPY W/VIDEO-ASST VEIN [...] referral, Lovely Vicente MD [address] [place] [address]. [facility], MSN, STOVE POLISHER-BC, JAVASCRIPT PROGRAMMER Nurse Practitioner [facility] documented in this encounter Plan of Treatment Upcoming Encounters Date Type Specialty Care Team Description 05/28/2022 Appointment Cardiology Zulma Dolan MD [facility] [place], [place] [address] (Wo rk) 05/28/2022 Laboratory Appointment Lab 05/28/2022 Office Visit Cardiology Zulma Dolan MD [facility] [place] [address] Liz Poole PA [facility] [place] [address] 06/10/2022 Office Visit Dermatology Laura Scherer MD [facility] DR [address] [place], [place] [address] (Wo rk) documented as of this encounter Visit Diagnoses Diagnosis 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
--- OUTSIDE RECORDS SUMMARY | 2022-05-08 02:25 | XMS_ITS | Encounter Summary ---
:1945 [place] [address] Care Team Providers Name Role Phone Lovely Vicente MD Primary Care Provider Reason for Visit Reason Comments Hospital Transfer cold foot post CABG Auth/Cert Specialty Diagnoses / Procedures Referred By Contact Refer red To Contact Diagnoses Critical lower limb ischemia Procedures NAYE IPI Referral ID Status Reason Start Date Expiration Date Visits Requ ested Visits Authorized [id number] 1 1 Encounter Details Date Type Department Care Team Description 07/20/2017 Hospital Encounter 4 Herminia Ibarra MD [facility] [place] [address] Critical lower limb [facility] Arik Clement MD [facility] [place] [address] [place] [address] Social History Tobacco Use Types Packs/Day Years [...] home. Important Studies and Lab Data: Labs: [facility] Lab Results Component Value Date INR 1.5 [...] For any problems or questions please call [phone] ZELDA Smith, parts classifier Nurse Clinician For issues on weeknights after 5pm and weekends please call [phone] and ask for the Vascular Fellow director correctional agency. General Instructions None Future Appointments and Orders Future Appointments Provider Department Dept Phone 08/04/2017 1:00 PM Daniele Mooney [place] [facility] at [place] [phone] 08/04/2017 2:15 PM Arik Clement MD Vascular Surgery at [place] [phone] 09/07/2017 3:00 PM MAYRA CHACON Lab [facility] [phone] 09/07/2017 4:00 PM Luz Prescott MD Endocrinology at [place] [phone] Future Orders Complete By Expires Arterial Duplex Leg, Unil [VAS32 Custom] 07/27/2017 (Approximate) 01/26/2018 Process Instructions: There is no in-house vascular laboratory assistant available on weeknights (5pm-8am), weekends, or holidays. IF THIS IS A REQUEST FOR AN EMERGENT STUDY DURING THOSE HOURS, please have the senior provider responsible for the patient page the Vascular Surgery Fellow/Senior Resident director correctional agency to discuss options. Scheduling Instructions: Questions: Indication for study/signs & symptoms: Right femoral PSA s/p cardiac cath Question to be answered: bloodflow to PSA Laterality: Right Is there a RIGHT LOWER EXTREMITY graft?: No Lower limb right segments: Common Femoral Is there a stent?: No At which location will this be performed?: [place] Referral to Home Health - at DISCHARGE [[id number] CPT(R)] As directed Process Instructions: Scheduling Instructions: Comments: DOCUMENTATION FOR VNA SERVICES (INCLUDING THOSE PATIENTS WITH MEDICARE COVERAGE REQUIRING HOME VNA SERVICES AND/OR HOSPICE SERVICES) PATIENT'S LOCATION: Gregory Fatima [address] [place] [address] [place] [phone] (home) Cell: Telephone Information: Senior Energy Analyst's Name: self In discussion with the attending physician, it is certified that this patient is under their care and that they, or a Nurse Practitioner,Clinical Nurse specialist or Physician Sales Contracts Analyst who is working directly with them, [...] CARE AGENCY: [facility] ([facility] [place] [facility]-is in [place] PHONE: [phone] FAX: [phone] Start of care: 24- 48 hours FOR [...] patient'sPCP: Lovely Vicente MD [address] [facility] [place] / [place] [address] All VNA agencies which cover the area [...] For any problems or questions please call [phone] ZELDA Smith, parts classifier Nurse Clinician For issues on weeknights after 5pm and weekends please call [phone] and ask for the Vascular Fellow director correctional agency. documented in this encounter Medications at Time [...] - 07/20/2017 2:53 PM EST The patient/veterans service representative has been provided a list of Home Health Agencies/DME vendors which serve their preferred geographic area. A letter describing our affiliations was reviewed with them and theywere educated about their right to choose where referrals are placed. Patient requests referral to [facility]. PHONE: [phone] FAX: [phone]. Expected date of discharge: 07/20/2017 . Referral routed to the Help Desk Engineer for matching with agency/vendor and to provide any required information. Naty Pulliam RN - 07/20/2017 11:37 AM EST The patient/veterans service representative has been provided a list of Home Health Agencies/DME vendors which serve their preferred geographic area. A letter describing our affiliations was reviewed with them and theywere educated about their right to choose where referrals are placed. Patient requests referral to [facility] ([facility] [place] [facility]- is in [facility] PHONE: [phone] FAX: [phone]. Expected date of discharge: 07/20/2017 . Referral routed to the Help Desk Engineer for matching with agency/vendor and to provide any required information. Katina Pulliam RNcable operator Janneth Lee MD - 07/20/2017 7:29 [...] [facility] ENDOSCOPY ??? PRO ENDOSCOPY W/VIDEO-ASST VEIN HARVEST, CABG Right 07/07/2017 ENDOSCOPIC HARVEST VEIN(S) FOR CABG (WRVU 0.31) performed by Yuan Retana MD at [facility] MAIN OR ??? PRO THYROIDECTOMY 03/28/2013 THYROIDECTOMY, TOTAL OR COMPLETE performed by Manny Mcknight MD at [facility] MAIN OR Functional Status/Social Hx: [...] -ISS -pain control Discussed with Vascular Fellow director correctional agency. Chris Valadez MD PGY2 Pager [phone] documented in this encounter ED Notes Annita Reaves MD - 07/20/2017 3:15 PM EST Emergency Department Gregory Fatima is a 72 y.o. male who presents to [facility] with arterial thrombosis. History of Present Illness [...] [facility] 07/05/17 Anticipated Length Of Stay (If known): [...] Health/Prescription Coverage: Primary Insurance: MEDICARE Secondary Insurance: [employer] [facility] Prescription Coverage: See above Preferred Pharmacy: [facility] Other: N/A Primary Care Provider: Lovely Vicente MD [phone] Patient/Caregiver Goals of Treatment: Patient plans to return home when medically ready Potential Needs for Transition of Care: Rehab/SNF: N/A Home Health: [facility] ([facility] [place] [facility]-is in [place] PHONE: [phone] FAX: [phone] DME: N/A Dialysis: N/A Community Resources: N/A Transportation: Patient family will transport Other: N/A Anticipated Barriers to Discharge/Special Considerations: None Plan: Patient plans to return home with home health services when medically ready A member of the Care Management team will continue to monitor progress, follow for continuity of care and assist with transition of care planning. Naty Pulliam, RN Pager: [phone] ED Triage - Rayna Weir RN - 07/20/2017 12:28 AM EST Pt transferred from [place] for blue right foot and painful toes. [...] [facility] [place], [place] [address] (Wo rk) 05/28/2022 Laboratory Appointment Lab 05/28/2022 Office Visit Cardiology Zulma Dolan MD [facility] [place] [id number] [facility] [place] [address] 06/10/2022 Office Visit Dermatology Laura Scherer MD [facility] DR [address] [place], [place] [address] (Wo rk) documented as of this encounter Procedures Procedure Name Priority Date/Time Associated Comments Diagnosis TRANSPORTATION WORKER SCAN 09/02/2017 12:00 Res ults for this [...] TO LAB EST procedure are i n ([facility]) the results section. APTT STAT 07/20/2017 2:25 AM Results f or this EST procedure are i n the results section. PROTHROMBIN TIME STAT 07/20/2017 2:25 AM Resul ts for this EST procedure are i n the results section. BASIC METABOLIC PANEL STAT 07/20/2017 2:25 AM Results for this (NON-FASTING) EST procedure are in the results section. documented in this encounter Results SCAN DOC: TRANSPORTATION WORKER (09/02/2017 12:00 AM EST) Narrative 09/02/2017 12:00 AM EST This result has an attachment that is no t available. Ordered by an unspecified provider. Scanning Provider MEDIA MGR SCAN EXT ORDR/RSLT POCT Glucose (07/20/2017 12:04 PM EST) P athologist Signature POC Glucose 189 65 - 199 [facility] mg/dL [facility] Comment: Supplemental ranges: <140 mg/dL before meals <180 mg/dL all other times of the day Specimen Anatomical Collection Method Collection Time Receive d Time (Source) Location / / Volume Laterality Blood specimen 07/20/2017 12:04 7 (specimen) PM EST 12:04 PM EST Arik Clement MD POINT OF CARE TEST ORDERABLE S Performing Organization Address City/State/[place] [address] (ABNORMAL) Differential, Automated (07/20/2017 10:34 AM EST) Patholo gist Method Time Signature Neutrophils % 84.3 % [facility]ORY Neutr Abs (ANC) 14.27 (H) 1.70 - [facility] 6.10 [facility] x10(3)/[facility] LABORATORY Lymphocytes % 5.6 % [facility] Lymphocytes Abs 1.0 0.9 - 3.2 [facility] x10(3)/[facility] LABORATORY Monocytes % 6.1 % [facility] Monocyte Abs 1.0 (H) 0.3 - 0.9 [facility] x10(3)/[facility] LABORATORY Eosinophils % 2.4 % [facility] Eosinophils Abs 0.4 0.0 - 0.4 [facility] x10(3)/[facility] LABORATORY Basophils % 0.5 % [facility] Basophils Abs 0.1 0.0 - 0.1 [facility] x10(3)/[facility] LABORATORY Immature Gran % 1.10 % [facility] [...] Gran Abs 0.19 (H) 0.00 - 0.04 x10(3)/[facility] LABORATORY Specimen Anatomical Collection Method Collection Time Receive d Time (Source) Location / / Volume Laterality Blood specimen 07/20/2017 10:34 7 (specimen) AM EST 10:39 AM EST Resulting Agency Comment Spec In Lab Arik Clement MD HEMATOLOGY ORDERABLES Performing Organization Address City/State/[place] [address] (ABNORMAL) Hemogram (07/20/2017 10:34 AM EST) Analysis Performed At Patho logist Time Signature WBC 17.0 (H) 4.0 - 9.5 [facility] x10(3)/[facility] LABORATORY RBC 3.70 (L) 4.58 - [facility] 5.54 [facility] x10(6)/[facility] LABORATORY Hemoglobin 10.8 (L) 13.7 - [facility] 16.5 gm/dL [facility] Hematocrit 33.4 (L) 40.5 - [facility] 48.5 % [facility] MCV 90.3 82.9 - [facility] 93.1 [facility] LABORATORY MCH 29.2 27.5 - [facility] RYAN 32.1 pg [facility] LABORATORY MCHC 32.3 32.0 - [facility] RYAN 35.7 gm/dL [facility] Platelets 211 145 - 357 [facility] x10(3)/[facility] LABORATORY RDWSD 49.1 (H) 36.0 - [facility] RYAN 45.0 [facility] LABORATORY RDWCV 14.7 (H) 11.4 - [facility] RYAN 13.8 % [facility] LABORATORY MPV 9.2 7.6 - 12.9 [facility] nRBC % Auto 0.0 % [facility] LABORATORY nRBC Abs Auto 0.000 0.000 - [place] RYAN 0.000 [facility] x10(3)/[facility] LABORATORY Specimen Anatomical Collection Method Collection Time Receive d Time (Source) Location / / Volume Laterality Blood specimen 07/20/2017 10:34 7 (specimen) AM EST 10:39 AM EST Resulting Agency Comment Spec In Lab Arik Clement MD HEMATOLOGY ORDERABLES Performing Organization Address City/State/[place] [address] (ABNORMAL) APTT (07/20/2017 10:34 [...] Clement MD HEMATOLOGY ORDERABLES Performing Organization Address City/[facility]/[place] [address] POCT Glucose (07/20/2017 7:41 AM EST) athologist Signature POC Glucose 174 65 - 199 [facility] mg/dL [facility] Comment: Supplemental ranges: <140 mg/dL before meals <180 mg/dL all other times of the day Specimen Anatomical Collection Method Collection Time Receive d Time (Source) Location / / Volume Laterality Blood specimen 07/20/2017 7:41 AM 017 7:41 (specimen) EST AM EST Arik Clement MD POINT OF CARE TEST ORDERABLE S Performing Organization Address City/[facility]/ZIP Code Phon e Number [address] JULIAN, legs, multiple levels (07/20/2017 7:33 AM EST) Component Value Ref Test Analysis Performed At Patholo gist Range Method Time Signature VB Text Department: Vascular Surgery Lab [facility] Report Patient: [id number] (GREGORY FATIMA) CPT: 39568 ICD10: I75.021;I99.8 Referring Physician: ARIK CLEMENT ?? [...] / Volume Laterality 07/20/2017 7:33 AM EST Arki Clement MD VASCULAR ORDERABLES Performing Organization Address City/State/ZIP Code Phon e Number [facility] Arterial Duplex Leg, Unil (07/20/2017 7:33 AM EST) Component Value Ref Test Analysis Performed At [facility] Range Method Time Signature VB Text Department: Vascular Surgery Lab [facility] Report Patient: [id number] (GREGORY FATIMA) CPT: 98683 ICD10: I97.610;I99.8 Referring Physician: ARIK CLEMENT ?? [...] POC Glucose 199 65 - 199 [facility] mg/dL [facility] Comment: Supplemental ranges: <140 mg/dL before meals <180 mg/dL all other times of the day Specimen Anatomical Collection Method Collection Time Receive d Time (Source) Location / / Volume Laterality Blood specimen 07/20/2017 3:41 AM 017 3:41 (specimen) EST AM EST Arik Clement MD POINT OF CARE TEST ORDERABLE S Performing Organization Address City/[facility]/ZIP [facility] [place] [address] Lactate, whole blood, send to lab (Leb/CGP) (07/20/2017 2:25 AM EST) athologist Signature Lactate WB 2.0 0.5 - 2.2 [facility] mmol/L [facility]OR[facility] Specimen Anatomical Collection Method Collection Time Receive d Time (Source) Location / / Volume Laterality Blood specimen Venous Draw / 07/20/2017 2:25 AM 2016 2:37 (specimen) Unknown EST AM EST Resulting Agency Comment Spec In Lab Zulma Samuel MD CHEMISTRY ORDERABLES Performing Organization Address City/[facility] Code Phon e Number [address] (ABNORMAL) APTT (07/20/2017 2:25 [...] Reaves MD HEMATOLOGY ORDERABLES Performing Organization Address City/[facility]/[place] [address] (ABNORMAL) Prothrombin Time (07/20/2017 [...] Organization Address City/State/[place] [address] (ABNORMAL) Basic Metabolic Panel (non-fasting) (07/20/2017 2:25 AM EST) P athologist Signature Glucose Lvl 187 65 - 199 [facility] mg/dL [facility] Comment: Diabetes: >=200 mg/dL plus symp toms BUN 35 (H) 10 - 20 mg/dL [facility] LABORATORY Creatinine 1.51 (H) 0.80 - 1.50 mg/dL [facility] LABORATORY Sodium 134 (L) 135 - 145 mmol/L [facility] LABORATORY Potassium Not Perf 3.5 - 5.0 mmol/L [facility] Comment: Specimen hemolyzed. Called by: [facility], Read back by: Chitra Orantes, Date/Time:07/20/17 [...] or in patients with acute kidney failure. [email or web address] [email or web address] Specimen Anatomical Collection Method Collection Time Receive d Time (Source) Location / / Volume Laterality Blood specimen 07/20/2017 2:25 AM 017 2:33 (specimen) EST AM EST Resulting Agency Comment Spec In Lab Annita Reaves MD CHEMISTRY ORDERABLES Performing Organization Address City/State/ZIP Code Phon e Number [place] [id number] documented in this encounter [...] Medication not available)0759 (Given - Provider: Laura Veag RN)1222 (Given - Provider: Laura Vega RN) [...] 0-8,000 Units, Intravenous, BOLUS [facility] PROTOCOL, Starting Wed07/20/17 at 0424, Until Wed07/20/17 [...]
Routine documented in this encounter Care Teams Recreation Center Director Relationship Specialty Start Date End Date Lovely Vicente MD PCP - General 04/16/[address] [place] [address] documented as of this encounter
--- OUTSIDE RECORDS SUMMARY | 2022-05-08 02:25 | XMS_ITS | Encounter Summary ---
:1945 Author Organization [facility] [place] [address] Care Team Providers Name Role Phone Lovely Vicente MD Primary Care Provider Reason for Visit Reason Onset Date Comments Other 07/22/2017 lovenox bridge Encounter Details Date Type Department Care Team Description 07/22/2017 Telephone Cardiology at [facility] Court Cadena RN Other (lovenox bridge) [place] [address] Social History Tobacco Use Types Packs/Day [...] 4:49 PM EST VAMSI Del Castillo, at [facility], called earlier today with a question re: lovenox bridge for this patient who was recently discharged from [facility] r/t a blood clot. Discharge note faxed to [facility] (fax# [phone], Ph#: [phone]) which contains instructions r/t lovenox bridge as follows: Anticoagulation: on lovenox bridge to therapeutic coumadin for AFib. Goal INR 2-3. At discharge INR=1.5. The lovenox injections can stop when INR >2, coumadin will continue indefinitely. documented in this encounter Plan of Treatment Upcoming Encounters Date Type Specialty Care Team Description 05/28/2022 Appointment Cardiology Zulma Dolan MD [facility] [place], [place] [address] (Wo rk) 05/28/2022 Laboratory Appointment Lab 05/28/2022 Office Visit Cardiology Zulma Dolan MD [facility] [place] [address] Liz Poole PA [facility] [place] [address] 06/10/2022 Office Visit Dermatology Laura Scherer MD [facility] [address] [place], [place] [address] (Wo rk) documented as of this encounter Visit Diagnoses Not on filedocumented in this encounter Care Teams Filing Machine Operator Relationship Specialty Start Date End Date Lovely Vicente MD PCP - General 04/16/15 [facility] [address] [place] [address] documented as of this encounter
--- OUTSIDE RECORDS SUMMARY | 2022-05-08 02:25 | XMS_ITS | Encounter Summary ---
:1945 Author Organization [facility] [place] [address] Care Team Providers Name Role Phone Lovely Vicente MD Primary Care Provider Encounter Details Date Type Department Care Team Description 08/02/2017 Telephone Pain Management at [facility] [place], [place] [address] Social History Tobacco Use Types Packs/Day [...] Management Center Preauthorization Request Patient: Don Fatima [id number] Fax received from [facility] requesting we obtain prior authorization for Lidocaine patches prescribed by Barbra Soares APRN. RX insurance plan: [employer] RX insurance telephone: [phone] Patient Diagnosis: right foot pain secondary to PVD and ischemia Previous medications attempted: Tylenol, Tramadol, Dilaudid The following action was taken after discussion with the emergency services professional: _x_ pharmacy informed Authorized dosage or amount: 5% on patch on for 12 hours, then remove for 12 hours. [place] Rodrigez, RN documented in this encounter Plan of Treatment Upcoming Encounters Date Type Specialty Care Team Description 05/28/2022 Appointment Cardiology Zulma Dolan MD [facility] [place], [place] [address] (Wo rk) 05/28/2022 Laboratory Appointment Lab 05/28/2022 Office Visit Cardiology Zulma Dolan MD [facility] [place] [address] Liz Poole PA [facility] [place] [address] 06/10/2022 Office Visit Dermatology Laura Scherer MD [facility] [address] [place], [place] [address] (Wo rk) documented as of this encounter Visit Diagnoses Not on filedocumented in this encounter Care Teams Structured Cabling Technician Relationship Specialty Start Date End Date Lovely Vicente MD PCP - General 04/16/[address] [place] [address] documented as of this encounter
--- OUTSIDE RECORDS SUMMARY | 2022-05-08 02:25 | XMS_ITS | Encounter Summary ---
:1945 Author [place] [address] Care Team Providers Name Role Phone Lovely Vicente MD Primary Care Provider Encounter Details Date Type Department Care Team Description 08/03/2017 Hospital Encounter Radiology Library at [place], Tommy Mijares [facility] [place] [address] VASCULAR SURGERY [phone] [place], [place] [address] (Wo rk) Social History Tobacco [...] Dolan MD [facility] [address] [place], [place] [address] (Wo rk) 05/28/2022 Laboratory Appointment Lab 05/28/2022 Office Visit Cardiology Zulma Dolan MD [facility] [place] [address] Liz Poole PA [facility] [place] [address] 06/10/2022 Office Visit Dermatology Laura Scherer MD [facility] [address] [place], [place] [address] (Wo rk) documented as of [...] Time Received Time / Laterality Volume Narrative [facility] - 08/03/2017 6:01 PM EST This exam is for storage only and is aut o-finalizing. Arik Clement MD G FILM LIBRARY ORDERABLES Performing Organization Address City/State/ZIP Code Phon e Number [place], [place] documented in this encounter Visit Diagnoses Diagnosis Pain Generalized pain documented in this encounter Care Teams Title Coordinator Relationship Specialty Start Date End Date Lovely Vicente MD PCP - General 04/16/[address] [place] [address] documented as of this encounter
--- OUTSIDE RECORDS SUMMARY | 2022-05-08 02:25 | XMS_ITS | Encounter Summary ---
:1945 Author Organization [facility] [place] [address] Care Team Providers Name Role Phone Lovely Vicente MD Primary Care Provider Reason for Visit Reason Comments Follow-up Encounter Details Date Type Department Care Team Description 07/29/2017 Office Visit Cardiac Surgery at [facility] Yuan Retana MD S/P CABG x 3 [facility] [place] [address] CARDIOTHORACIC SURGERY [phone] [place], [place] [address] (Wo rk) Social History Tobacco [...] evaluation by vascular surgery. Yuan Retana MD [phone] documented in this encounter Plan of Treatment Upcoming Encounters Date Type Specialty Care Team Description 05/28/2022 Appointment Cardiology Zulma Dolan MD [facility] er [address] [place] [address] (Wo rk) 05/28/2022 Laboratory Appointment Lab 05/28/2022 Office Visit Cardiology Zulma Dolan MD [facility] [place] [address] Liz Poole PA [facility] [place] [address] 06/10/2022 Office Visit Dermatology Laura Scherer MD [facility] ER [address] [place], [place] [address] (Wo rk) documented as of this encounter Visit Diagnoses Diagnosis S/P CABG x 3 Postsurgical aortocoronary bypass status documented in this encounter Care Teams Knurling Machine Operator Relationship Specialty Start Date End Date Lovely Vicente MD PCP - General 04/16/[address] [place] [address] documented as of this encounter
--- OUTSIDE RECORDS SUMMARY | 2022-05-08 02:25 | XMS_ITS | Encounter Summary ---
:1945 Author Organization [facility] Address [facility] [place] [address] Care Team Providers Name Role Phone Lovely Vicente MD Primary Care Provider Reason for Visit Auth/Cert Specialty Diagnoses / Procedures Referred By Contact Refer red To Contact Diagnoses Critical lower limb ischemia CELLULITIS RT FOOT Procedures EMERGENCY Referral ID Status Reason Start Date Expiration Date Visits Requ ested Visits Authorized [id number] 1 1 Encounter Details Date Type Department Care Team Description 08/04/2017 Laboratory Lab 3L Barbara Cardiomyopathy, unspecified type; Appointment [facility] Systolic congestive heart failure, unspecified congestive heart failure chronicity; Hospital Coronary artery rupture; [facility] Ischemic cardiomyopathy; Drive Atherosclerosis of [place] co ronary artery, angina presence unspecified, unspecified whether [place] or transplanted heart; [place], [place] Essential hyper tension, malignant; [phone] 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, 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 [phone] Social History Tobacco Use Types Packs/Day Years [...] MD [facility] [address] [place] [address] (Wo rk) 05/28/2022 Laboratory Appointment Lab 05/28/2022 Office Visit Cardiology Zulma Dolan MD [facility] [place] [address] Liz Poole PA [facility] [place] [address] 06/10/2022 Office Visit Dermatology Laura Scherer MD [facility] ER [address] [place], [place] [address] (Wo rk) documented as of this encounter Procedures Procedure Name Priority Date/Time Associated Diagnosis Comme nts HEMOGRAM Routine 08/04/2017 12:55 Essential Results for this PM EST hypertension, procedure are in malignant the results section. PROTHROMBIN TIME Routine 08/04/2017 12:55 Coronary artery Resu lts for this PM EST rupture procedure are in Ischemic the results cardiomyopathy section. Atherosclerosis of [place] coronary artery, angina presence unspecified, unspecified whether [place] or transplanted heart URIC ACID Routine 08/04/2017 [...] with the results diabetic section. nephropathy, unspecified fci insulin use status Essential hypertension, malignant COMPREHENSIVE Routine 08/04/2017 12:55 Essential Results fo r this METABOLIC PANEL PM EST hypertension, procedure a re in (NON-FASTING) malignant the results section. documented in this encounter Results Uric acid (08/04/2017 12:55 PM EST) P athologist Signature Uric Acid 7.1 3.5 - 8.5 [facility]/dL [facility] LABORATORY Specimen Anatomical Collection Method Collection Time Receive d Time (Source) Location / / Volume Laterality Blood specimen 08/04/2017 12:55 8 1:01 (specimen) PM EST PM EST Resulting Agency Comment Spec In Lab Lovely Vicente MD CHEMISTRY ORDERABLES Performing Organization Address City/[facility]/[place] [address] (ABNORMAL) Hemogram (08/04/2017 12:55 PM EST) Analysis Performed At Patho logist Time Signature WBC 15.8 (H) 4.0 - 9.5 [facility] x10(3)/[facility] LABORATORY RBC 3.48 (L) 4.58 - [facility] 5.54 [facility] x10(6)/[facility] LABORATORY Hemoglobin 9.9 (L) 13.7 - [facility] 16.5 gm/dL [facility] LABORATORY Hematocrit 31.4 (L) 40.5 - [facility] 48.5 % [facility]ORATORY MCV 90.2 82.9 - [facility] 93.1 [facility] LABORATORY MCH 28.4 27.5 - [facility] 32.1 pg [facility] LABORATORY MCHC 31.5 (L) 32.0 - [facility] 35.7 gm/dL [facility] LABORATORY Platelets 310 145 - 357 [facility] x10(3)/[facility] LABORATORY RDWSD 51.8 (H) 36.0 - [facility] 45.0 [facility] LABORATORY RDWCV 15.8 (H) 11.4 - [facility] 13.8 % [facility] LABORATORY MPV 8.9 7.6 - 12.9 [facility] LABORATORY nRBC % Auto 0.0 % [facility] LABORATORY nRBC Abs Auto 0.000 0.000 - [facility] 0.000 [facility] x10(3)/[facility] LABORATORY Specimen Anatomical Collection Method Collection Time Receive d Time (Source) Location / / Volume Laterality Blood specimen 08/04/2017 12:55 8 1:01 (specimen) PM EST PM EST Resulting Agency Comment Spec In Lab Lovely Vicente MD HEMATOLOGY ORDERABLES Performing Organization Address City/State/[place] [address] (ABNORMAL) Comprehensive metabolic panel (non-fasting) (08/04/2017 12:55 PM EST) athologist Signature Glucose Lvl 208 (H) 65 - 199 [facility] mg/dL [facility] LABORATORY Comment: Diabetes: >=200 mg/dL plus symp toms BUN 32 (H) 10 - 20 mg/dL [facility] LABORATORY Creatinine 1.58 (H) 0.80 - 1.50 mg/dL [facility] LABORATORY Sodium 136 135 - 145 mmol/L [facility] LABORATORY Potassium 5.5 (H) 3.5 - 5.0 mmol/L [facility] 10.5 mg/dL [facility] LABORATORY Total Protein 6.9 [...] or in patients with acute kidney failure. [email or web address] [email or web address]/DHMCnkf Specimen Anatomical Collection Method Collection Time Receive d Time (Source) Location / / Volume Laterality Blood specimen 08/04/2017 12:55 8 1:01 (specimen) PM EST PM EST Resulting Agency Comment Spec In Lab Lovely Vicente MD CHEMISTRY ORDERABLES Performing Organization Address City/State/ZIP Code Phon e Number [place] [phone] [address] LAB[address]ORY [address] (ABNORMAL) Hemoglobin A1c (08/04/2017 [...] hemoglobinopathies. Additional resources are available on [facility] website. Macario HAMMOND, Ruthann J, Deysi R, et al. ??Tr anslating the A1C assay into estimated average glucose values. ??Diabetes Care 2008:31(8):9325-5029. Specimen Anatomical Collection Method Collection Time Receive d Time (Source) Location / / Volume Laterality Blood specimen 08/04/2017 12:55 8 1:01 (specimen) PM EST PM EST Resulting Agency Comment Spec In Lab Lovely Vicente MD CHEMISTRY ORDERABLES Performing Organization Address [facility] [place] [address] (ABNORMAL) Prothrombin Time (08/04/2017 [...] Vicente MD HEMATOLOGY ORDERABLES Performing Organization Address [facility]/[place] [address] (ABNORMAL) pro-Brain Natriuretic Peptide (08/04/2017 12:55 PM EST) P athologist Signature ProBNP 3,133 (H) <=125 [facility] pg/mL [facility] LABORATORY Specimen Anatomical Collection Method Collection Time Receive d Time (Source) Location / / Volume Laterality Blood specimen 08/04/2017 12:55 8 1:01 (specimen) PM EST PM EST Resulting Agency Comment Spec In Lab Danette Maxwell APRN CHEMISTRY ORDERABLES Performing Organization Address City/State/[place] [address] documented in this encounter Visit Diagnoses Diagnosis Cardiomyopathy, unspecified type Systolic congestive heart failure, unspe cified congestive heart failure chronicity Coronary artery rupture Acute myocardial infarction, unspecified site, episode of care unspecified Ischemic cardiomyopathy Other specified forms of chronic ischemi c heart disease Atherosclerosis of [place] coronary arter y, angina presence unspecified, unspecified whether [place] or transplanted heart Essential hypertension, malignant Diabetes mellitus due to underlying cond ition with diabetic nephropathy, 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
--- OUTSIDE RECORDS SUMMARY | 2022-05-08 02:25 | XMS_ITS | Encounter Summary ---
:1945 Author Organization [facility] [place] [address] Care Team Providers Name Role Phone Lovely Vicente MD Primary Care Provider Reason for Visit Auth/Cert Specialty Diagnoses / Procedures Referred By Contact Refer red To Contact Diagnoses Critical lower limb ischemia CELLULITIS RT FOOT Procedures EMERGENCY Referral ID Status Reason Start Date Expiration Date Visits Requ ested Visits Authorized [id number] 1 1 Encounter Details Date Type Department Care Team Description 08/04/2017 Laboratory Appointment Lab 3L [facility] [place] [address] Social History Tobacco Use Types Packs/Day [...] MD [facility] er [address] [place] [address] (Wo rk) 05/28/2022 Laboratory Appointment Lab 05/28/2022 Office Visit Cardiology Zulma Dolan MD [facility] [place] [address] Liz Poole PA [facility] [place] [address] 06/10/2022 Office Visit Dermatology Laura Scherer MD [facility] [address] [place], [place] [address] (Wo rk) documented as of this encounter Visit Diagnoses Not on filedocumented in this encounter Care Teams Cloth Colorer Relationship Specialty Start Date End Date Lovely Vicente MD PCP - General 04/16/15 [facility] [address] [place], [place] [address] documented as of this encounter
--- OUTSIDE RECORDS SUMMARY | 2022-05-08 02:25 | XMS_ITS | Encounter Summary ---
:1945 Author Organization [place] [address] Care Team Providers Name Role Phone Lovely Vicente MD Primary Care Provider Encounter Details Date Type Department Care Team Description 08/03/2017 Telephone Pain Management at [place], [place] [address] Social History Tobacco Use Types Packs/Day [...] Management Center Preauthorization Request Patient: Don Fatima [id number] Fax received from [facility] requesting we obtain prior authorization for Lidocaine Patches prescribed by Barbra Soares APRN. RX insurance plan: [employer] insurance telephone: [phone] Patient ?? Diagnosis: right foot pain secondary to PVD and ischemia ?? Previous medications attempted: Tylenol, Tramadol, Dilaudid Authorization/Reference number: [id number], PBP Code 801 _x_ denied, provider and patient informed _x_ appeal initiated by provider, patient informed Angeles Rodrigez, RN documented in this encounter Plan of Treatment Upcoming Encounters Date Type Specialty Care Team Description 05/28/2022 Appointment Cardiology Zulma Dolan MD [facility] [place], [place] [address] (Wo rk) 05/28/2022 Laboratory Appointment Lab 05/28/2022 Office Visit Cardiology Zulma Dolan MD [facility] [place] [address] Liz Poole PA [facility] [place] [address] 06/10/2022 Office Visit Dermatology Laura Scherer MD [facility] [address] [place], [place] [address] (Wo rk) documented as of this encounter Visit Diagnoses Not on filedocumented in this encounter Care Teams [employer] Relationship Specialty Start Date End Date Lovely Vicente MD PCP - General 04/16/[address] [place] [address] documented as of this encounter
--- OUTSIDE RECORDS SUMMARY | 2022-05-08 02:25 | XMS_ITS | Encounter Summary ---
:1945 Author Organization [facility] [place] [address] Care Team Providers Name Role Phone Lovely Vicente MD Primary Care Provider Reason for Visit Reason Comments Foot Pain Auth/Cert Specialty Diagnoses / Procedures Referred By Contact Refer red To Contact Diagnoses Ischemic foot Procedures NAYE OBSVO Referral ID Status Reason Start Date Expiration Date Visits Requ ested Visits Authorized [id number] 1 1 Encounter Details Date Type Department Care Team Description 07/27/2017 Emergency 1 [facility] Lokesh Swenson MD [facility] [place] [address] Femoral artery pseudo-aneurysm, right; [facility] Tam Bauman MD [facility] [place] [address] [place] [address] Social History Tobacco Use Types Packs/Day [...] the [facility] Press Puller . Issues after hours and on weekends [...] he was started on Coumadin given elevated [id number] score. He presented 2 weeks following that, on 07/20, with RLE pain/pallor andwas found to have critical limb ischemia in setting of subtherapeutic INR, pseudoaneurysm Rt [employer] and occlusion b/l ant tibial arteries. He [...] in the last 7068 hours. Invalid input(s): [id number] Recent Labs 07/08/17 0400 07/07/17 0515 07/06/17 [...] THREE L Lab 3L [facility] [phone] 07/30/2017 9:40 AM Danette Maxwell APRN Cardiology at [place] [phone] 08/04/2017 1:00 PM Daniele Mooney [place] Vascular [facility] [place] [phone] 08/04/2017 2:15 PM Arik Clement MD Vascular Surgery at [place] [phone] 08/11/2017 10:00 AM [employer] ROOM 2 XRay at [place] [phone] Please go to Systems Support Engineer Area 3T ([place] Location). 08/11/2017 11:00 AM Yuan Retana MD Cardiac Surgery at [place] [phone] 09/07/2017 3:00 PM LAB, THREE L Lab 3L [facility] [phone] 09/07/2017 4:00 PM Luz Prescott MD Endocrinology at [place] [phone] Discharge References/Attachments None documented in this encounter [...] Gas) No results found for: PHART, PO2ART, NCI5GPC Assessment/Plan: 72 y.o. 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 [place] body weight: 68.4 kg (150 lb 12.7 [...] spent >30 minutes (Day of Discharge Code 73016) involved in the final examination of the [...] he was started on Coumadin given elevated [id number] score. He presented 2 weeks following that, on 07/20, with RLE pain/pallor andwas found to have critical limb ischemia in setting of subtherapeutic INR, pseudoaneurysm Rt [employer] and occlusion b/l ant tibial arteries. He [...] Procedure Component Value Units Date/Time Blood culture [[id number]] Collected: 07/09/1739 Lab Status: Final result Specimen: Blood from Arm, Right Updated: 07/14/17701 Blood Culture No growth at 5 days. Blood culture [[id number]] Collected: 07/09/170 Lab Status: Final result Specimen: [...] Full Code Family PCP Lovely Vicente MD [phone] Attestation Please see my note for details [...] encounter Miscellaneous Notes Plan of Care - Webster-Joyce Damian, PT - 07/27/2017 3:26 PM EST [...] Anticipated Discharge Disposition: home with assist Pager: [phone] JOYCE KING, PT Inpatient Physical Therapy 2017 [...] patient's evaluation including the following functional test(s) [facility]. Current ability measures, co-morbidities and [...] up in clinic 1-2 weeks after discharge. [facility] Vascular Surgery Plan of Care [...] Zulma Dolan MD [facility] [place], [place] [address] (Wo rk) 05/28/2022 Laboratory Appointment Lab 05/28/2022 Office Visit Cardiology Zulma Dolan MD [facility] [place] [address] Liz Poole PA [facility] [place] [address] 06/10/2022 Office Visit Dermatology Laura Scherer MD [facility] [address] [place], [place] [address] (Wo rk) documented as [...] [facility] mg/dL [facility] Comment: Supplemental ranges: <140 mg/dL before meals <180 mg/dL all other times of the day Specimen Anatomical Collection Method Collection Time Receive d Time (Source) Location / / Volume Laterality Blood specimen 07/27/2017 11:53 8 (specimen) AM EST 11:53 AM EST Tam Bauman MD POINT OF CARE TEST ORDERABLE S Performing Organization Address City/State/[place] [address] Arterial Duplex Leg, Unil (07/27/2017 7:40 AM EST) Component Value Ref Test Analysis Performed At Patholo gist Range Method Time Signature VB Text Department: Vascular Surgery Lab VASCUBASE Report Patient: [id number] (GREGORY FATIMA) CPT: 93402 ICD10: I97.610;I72.4;Z09 Referring Physician: TAM BAUMAN ?? [...] Bauman MD VASCULAR ORDERABLES Performing Organization Address City/[facility]/ZIP Code Phon e Number VASCUBASE POCT Glucose (07/27/2017 6:51 AM EST) P athologist Signature POC Glucose 96 65 - 199 [facility] mg/dL [facility] Comment: Supplemental ranges: <140 mg/dL before meals <180 mg/dL all other times of the day Specimen Anatomical Collection Method Collection Time Receive d Time (Source) Location / / Volume Laterality Blood specimen 07/27/2017 6:51 AM 018 6:51 (specimen) EST AM EST Tam Bauman MD POINT OF CARE TEST ORDERABLE S Performing Organization Address City/[facility]/ZIP [facility] Phon e Number [address] ABORH Recheck Status (07/27/2017 [...] Address City/[facility]/[place] [address] Gold Tube HOLD (07/27/2017 12:53 AM EST) P athologist Signature Gold Hold Sample in [facility]. [facility] Specimen Anatomical Collection Method Collection Time Receive d Time (Source) Location / / Volume Laterality Blood specimen Venous Draw / 07/27/2017 12:53 07/27/19 18 1:01 (specimen) Unknown AM EST AM EST Angela Swenson MD CHEMISTRY ORDERABLES Performing Organization Address City/State/[place] [address] (ABNORMAL) Differential, Automated (07/27/2017 12:53 AM EST) Patholo gist Method Time Signature Neutrophils % 75.0 % [facility] LABORATORY Neutr Abs (ANC) 11.30 (H) 1.70 - [facility] 6.10 [facility] x10(3)/[facility] LABORATORY Lymphocytes % 9.9 % [facility] LABORATORY Lymphocytes Abs 1.5 0.9 - 3.2 [facility] x10(3)/[facility] LABORATORY Monocytes % 8.6 % [facility] LABORATORY Monocyte Abs 1.3 (H) 0.3 - 0.9 [facility] x10(3)/[facility] LABORATORY Eosinophils % 4.8 % [facility] LABOR[facility]ORY Eosinophils Abs 0.7 (H) 0.0 - 0.4 [facility] x10(3)/[facility] LABORATORY Basophils % 0.8 % [facility] LABORATORY Basophils Abs 0.1 0.0 - 0.1 [facility] x10(3)/[facility] LABORATORY Immature Gran % 0.90 % [facility] [...] Gran Abs 0.13 (H) 0.00 - 0.04 x10(3)/[facility] LABORATORY Specimen Anatomical Collection Method Collection Time Receive d Time (Source) Location / / Volume Laterality Blood specimen 07/27/2017 12:53 8 1:00 (specimen) AM EST AM EST Resulting Agency Comment Spec In Lab Angela Swenson MD HEMATOLOGY ORDERABLES Performing Organization Address City/State/[place] [address] (ABNORMAL) Hemogram (07/27/2017 12:53 AM EST) Analysis Performed At Patho logist Time Signature WBC 15.0 (H) 4.0 - 9.5 [facility] x[facility](3)/[facility] LABORATORY RBC 3.59 (L) 4.58 - [facility] 5.54 [facility] x10(6)/[facility] LABORATORY Hemoglobin 10.3 (L) 13.7 - [facility] 16.5 gm/dL [facility] Hematocrit 32.6 (L) 40.5 - [facility] 48.5 % [facility] MCV 90.8 82.9 - [facility] 93.1 [facility] LABORATORY MCH 28.7 27.5 - [facility] 32.1 pg [facility] MCHC 31.6 (L) 32.0 - [facility] 35.7 gm/dL [facility] Platelets 322 145 - 357 [facility] x10(3)/[facility] RDWSD 48.7 (H) 36.0 - [facility] 45.0 [facility] LABORATORY RDWCV 14.7 (H) 11.4 - [facility] 13.8 % [facility] MPV 8.9 7.6 - 12.9 [facility] LABORATORY nRBC % Auto 0.0 % [facility] LABORATORY nRBC Abs Auto 0.000 0.000 - [facility] 0.000 [facility] x10(3)/[facility] LABORATORY Specimen Anatomical Collection Method Collection Time Receive d Time (Source) Location / / Volume Laterality Blood specimen 07/27/2017 12:53 8 1:00 (specimen) AM EST AM EST Resulting Agency Comment Spec In Lab Angela Swenson MD HEMATOLOGY ORDERABLES Performing Organization Address City/State/[place] [address] Antibody screen (07/27/2017 12:53 AM EST) Patholo gist Method Time Signature Ab Screen Negative [facility] LABORATORY Expires at 07/30/2017 KATALINA ZHAORYAN 2359 on: [facility] Specimen Anatomical Collection Method Collection Time Receive d Time (Source) Location / / Volume Laterality Blood specimen 07/27/2017 12:53 8 (specimen) AM EST 12:58 AM EST Resulting Agency Comment Spec In Lab Angela Swenson MD BLOOD BANK ORDERABLES Performing Organization Address City/[facility]/[place] [address] ABO/Rh Typing (07/27/2017 12:53 AM EST) P athologist Signature ABORh Type O Pos [facility] LABORATORY Specimen Anatomical Collection Method Collection Time Receive d Time (Source) Location / / Volume Laterality Blood specimen 07/27/2017 12:53 8 (specimen) AM EST 12:58 AM EST Resulting Agency Comment Spec In Lab Angela Swenson MD BLOOD BANK ORDERABLES Performing Organization Address City/[facility] [place] [address] (ABNORMAL) Prothrombin Time (07/27/2017 [...] Organization Address City/State/[place] [address] (ABNORMAL) Basic Metabolic Panel (non-fasting) (07/27/2017 12:53 AM EST) athologist Signature Glucose Lvl 95 65 - 199 [facility] mg/dL [facility] Comment: Diabetes: >=200 mg/dL plus symp toms BUN 37 (H) 10 - 20 mg/dL [facility] LABORATORY Creatinine 1.49 0.80 - 1.50 mg/dL [facility] [...] or in patients with acute kidney failure. http://[employer]/DHnkdep [email or web address]/DHMCnkf Specimen Anatomical Collection Method Collection Time Receive d Time (Source) Location / / Volume Laterality Blood specimen 07/27/2017 12:53 8 1:00 (specimen) AM EST AM EST Resulting Agency Comment Spec In Lab Angela Swenson MD CHEMISTRY ORDERABLES Performing Organization Address City/State/[place] [address] documented in this encounter Visit Diagnoses Diagnosis Ischemic foot - Primary Unspecified circulatory system disorder Femoral artery pseudo-aneurysm, 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
Routine documented in this encounter Care Teams Hr Operations Advisor Relationship Specialty Start Date End Date Lovely Vicente MD PCP - General 04/16/15 [facility] [address] [facility] [place] [address] documented as of this encounter
--- OUTSIDE RECORDS SUMMARY | 2022-05-08 02:25 | XMS_ITS | Encounter Summary ---
:1945 Author Organization [facility] [place] [address] Care Team Providers Name Role Phone Lovely Vicente MD Primary Care Provider Encounter Details Date Type Department Care Team Description 07/24/2017 Telephone Vascular Surgery Melba Bob [facility] [place] [address] [facility] [phone] VASCULAR SURGERY [place], [place] [address] (Wo rk) Social History Tobacco [...] was discharged on Coumadin. ??He presented to [facility] on 07/20 with mottled [...] Zulma Dolan MD [facility] [address] [place] [address] (Wo rk) 05/28/2022 Laboratory Appointment Lab 05/28/2022 Office Visit Cardiology Zulma Dolan MD [facility] [place] [address] Liz Poole PA [facility] [place] [address] 06/10/2022 Office Visit Dermatology Laura Scherer MD [facility] DR TE[address]DERMAT [place], [place] [address] (Wo rk) documented as of this encounter Visit Diagnoses Not on filedocumented in this encounter Care Teams News Commentator Relationship Specialty Start Date End Date Lovely Vicente MD PCP - General 04/16/[address] [place] [address] documented as of this encounter
--- OUTSIDE RECORDS SUMMARY | 2022-05-08 02:25 | XMS_ITS | Encounter Summary ---
:1945 [place] [address] Care Team Providers Name Role Phone Lovely Vicente MD Primary Care Provider Encounter Details Date Type Department Care Team Description 08/03/2017 Hospital Encounter Radiology Library at [place], Tommy Mijares [facility] [place] [address] VASCULAR SURGERY [phone] [place], [place] [address] (Wo rk) Social History Tobacco [...] Zulma Dolan MD [facility] [place], [place] [address] (Wo rk) 05/28/2022 Laboratory Appointment Lab 05/28/2022 Office Visit Cardiology Zulma Dolan MD [facility] [place] [address] Liz Poole PA [facility] [place] [address] 06/10/2022 Office Visit Dermatology Laura Scherer MD [facility] [address] TEJA GR[address]DERMAT [place], [place] [address] (Wo rk) documented [...] Time Received Time / Laterality Volume Narrative [facility] - 08/03/2017 6:03 PM EST This exam is for storage only and is aut o-finalizing. Arik Clement MD G FILM LIBRARY ORDERABLES Performing Organization Address City/State/ZIP Code Phon e Number [place], [place] documented in this encounter Visit Diagnoses Diagnosis Pain Generalized pain documented in this encounter Care Teams Crime Scene Examiner Relationship Specialty Start Date End Date Lovely Vicente MD PCP - General 04/16/[address] [place] [address] documented as of this encounter
--- OUTSIDE RECORDS SUMMARY | 2022-05-08 02:25 | XMS_ITS | Encounter Summary ---
:1945 Author Organization [facility] [place] [address] Care Team Providers Name Role Phone Lovely Vicente MD Primary Care Provider Reason for Visit Auth/Cert Specialty Diagnoses / Procedures Referred By Contact Refer red To Contact Diagnoses Critical lower limb ischemia CELLULITIS RT FOOT Procedures EMERGENCY Referral ID Status Reason Start Date Expiration Date Visits Requ ested Visits Authorized [id number] 1 1 Encounter Details Date Type Department Care Team Description 08/04/2017 [facility] Barbara [place] thrombosis of [facility] [place] [phone] Social History Tobacco Use Types Packs/Day Years [...] Cardiology Zulma Dolan MD [facility] [place], [place] [address] (Wo rk) 05/28/2022 Laboratory Appointment Lab 05/28/2022 Office Visit Cardiology Zulma Dolan [place] [facility] [address] Liz Poole PA [facility] [place] [address] 06/10/2022 Office Visit Dermatology Laura Scherer MD [facility] [address] TEJA GR-DERMAT [place], [place] [address] [...] Department: Vascular Surgery Lab VASCUBASE Report Patient: [id number] (DON HOANG) CPT: 01544 ICD10: I82.541 Referring Physician: MEÑO HUTSON ?? [...] extremity documented in this encounter Care Teams Plastic Manager Relationship Specialty Start Date End Date Lovely Vicente MD PCP - General 04/16/[address] [place] [address] documented as of this encounter
--- OUTSIDE RECORDS SUMMARY | 2022-05-08 02:25 | XMS_ITS | Encounter Summary ---
:1945 [place] [address] Care Team Providers Name Role Phone Lovely Vicente MD Primary Care Provider Encounter Details Date Type Department Care Team Description 08/04/2017 Notes Only Cardiac Surgery Makayla Wilson EMAIL PRODUCER [facility] [place] [address] CARDIAC SURGERY [phone] [place], [place] [address] (Wo rk) Social History Tobacco [...] Dolan MD [facility] [address] [place], [place] [address] (Wo rk) 05/28/2022 Laboratory Appointment Lab 05/28/2022 Office Visit Cardiology Zulma Dolan MD [facility] [place] [address] Liz Poole PA [facility] [place] [address] 06/10/2022 Office Visit Dermatology Laura Scherer MD [facility] DR TEJA GR-DERMAT [facility] [place], [place] [address] (Wo rk) documented as of this encounter Visit Diagnoses Not on filedocumented in this encounter Care Teams Business Rules Developer Relationship Specialty Start Date End Date Lovely Vicente MD PCP - General 04/16/[address] [place] [address] documented as of this encounter
--- OUTSIDE RECORDS SUMMARY | 2022-05-08 02:25 | XMS_ITS | Encounter Summary ---
:1945 [place] [address] Care Team Providers Name Role Phone Lovely Vicente MD Primary Care Provider Encounter Details Date Type Department Care Team Description 08/04/2017 Notes Only Cardiac Surgery Makayla Wilson APRN [facility] [place] [address] CARDIAC SURGERY [phone] [place], [place] [address] (Wo rk) Social History Tobacco [...] Zulma Dolan MD [facility] [place], [place] [address] (Wo rk) 05/28/2022 Laboratory Appointment Lab 05/28/2022 Office Visit Cardiology Zulma Dolan MD [facility] [place] [address] Liz Poole PA [facility] [place] [address] 06/10/2022 Office Visit Dermatology Laura Scherer MD [facility] DR TE[address] GR[address]MAT [place], [place] 0[address] (Wo rk) documented as of this encounter Visit Diagnoses Not on filedocumented in this encounter Care Teams Generator Man Relationship Specialty Start Date End Date Lovely Vicente MD PCP - General 04/16/[address] [place] [address] documented as of this encounter
--- OUTSIDE RECORDS SUMMARY | 2022-05-08 02:25 | XMS_ITS | Encounter Summary ---
:1945 Author Organization [facility] [address] Care Team Providers Name Role Phone Lovely Vicente MD Primary Care Provider Encounter Details Date Type Department Care Team Description 07/29/2017 Transcribe Orders Laboratory Lovely Vicente MD [address] [address] [place] [address] [phone] (Wo rk) Social History Tobacco Use Types [...] MD [facility] [place] [address] [place] [address] (Wo rk) 05/28/2022 Laboratory Appointment Lab 05/28/2022 Office Visit Cardiology Zulma Dolan MD [facility] [place] [address] Liz Poole PA [facility] [place] [address] 06/10/2022 Office Visit Dermatology Laura Scherer MD [facility] ER DR TEJA GR[address]MAT [place], [place] [address] (Wo rk) documented as of this encounter Visit Diagnoses Not on filedocumented in this encounter Care Teams Eyelet Riveter Relationship Specialty Start Date End Date Lovely Vicente MD PCP - General 04/16/[address] [place] [address] documented as of this encounter
--- OUTSIDE RECORDS SUMMARY | 2022-05-08 02:25 | XMS_ITS | Encounter Summary ---
:1945 Author Organization [facility] [place] [address] Care Team Providers Name Role Phone Lovely Vicente MD Primary Care Provider Encounter Details Date Type Department Care Team Description 08/04/2017 Orders Only Cardiac Surgery Makayla Wilson APRN [facility] [place] [address] CARDIAC SURGERY [phone] [place], [place] [address] (Wo rk) Social History Tobacco [...] MD [facility] er [place], [place] [address] (Wo rk) 05/28/2022 Laboratory Appointment Lab 05/28/2022 Office Visit Cardiology Zulma Dolan MD [facility] [place] [address] Liz Poole PA [facility] [place] [address] 06/10/2022 Office Visit Dermatology Laura Scherer MD [facility] ER [address] TEJA GR[address] [place], [place] [address] (Wo rk) documented as of this encounter Visit Diagnoses Not on filedocumented in this encounter Care Teams Drafting Detailer Relationship Specialty Start Date End Date Lovely Vicente MD PCP - General 04/16/[address] [place] [address] documented as of this encounter
--- OUTSIDE RECORDS SUMMARY | 2022-05-08 02:25 | XMS_ITS | Encounter Summary ---
:1945 [place] [address] Care Team Providers Name Role Phone Lovely Vicente MD Primary Care Provider Encounter Details Date Type Department Care Team Description 08/04/2017 Notes Only Pain Management at Barbra Bruno, STAC[facility] [place] [address] [place] [address] [phone] (Wo rk) Social History Tobacco Use Types [...] bid) at this time. Barbra Soares, MSN, TRADING FLOOR OPERATOR-BC, [facility] documented in this encounter Plan of Treatment Upcoming Encounters Date Type Specialty Care Team Description 05/28/2022 Appointment Cardiology Zulma Dolan MD [facility] [address] [place], [place] [address] (Wo rk) 05/28/2022 Laboratory Appointment Lab 05/28/2022 Office Visit Cardiology Zulma Dolan MD [facility] [place] [address] Liz Poole PA [facility] [place] [address] 06/10/2022 Office Visit Dermatology Laura Scherer MD [facility] DR [address]DERMAT [place], [place] [address] (Wo rk) documented as of this encounter Visit Diagnoses Not on filedocumented in this encounter Care Teams Tire Classifier Relationship Specialty Start Date End Date Lovely Vicente MD PCP - General 04/16/[address] [place] [address] documented as of this encounter
--- OUTSIDE RECORDS SUMMARY | 2022-05-08 02:25 | XMS_ITS | Encounter Summary ---
:1945 Author Organization [facility] [place] [address] Care Team Providers Name Role Phone Lovely Vicente MD Primary Care Provider Encounter Details Date Type Department Care Team Description 07/29/2017 Transcribe Orders Laboratory Lovely Vicente MD [address] [address] [place] [address] [phone] (Wo rk) Social History Tobacco Use Types [...] [facility] er [address] [place] [address] (Wo rk) 05/28/2022 Laboratory Appointment Lab 05/28/2022 Office Visit Cardiology Zulma Dolan MD [facility] [place] [address] Liz Poole PA [facility] [place] [address] 06/10/2022 Office Visit Dermatology Laura Scherer MD [facility] ER DR TEJA GR[address]DERMAT [place], [place] [address] (Wo rk) documented as of this encounter Visit Diagnoses Not on filedocumented in this encounter Care Teams Inseminator Relationship Specialty Start Date End Date Lovely Vicente MD PCP - General 04/16/[address] [place] [address] documented as of this encounter
--- OUTSIDE RECORDS SUMMARY | 2022-05-08 02:25 | XMS_ITS | Encounter Summary ---
:1945 Author Organization [facility] [place] [address] Care Team Providers Name Role Phone Lovely Vicente MD Primary Care Provider Reason for Visit Auth/Cert Specialty Diagnoses / Procedures Referred By Contact Refer red To Contact Diagnoses Critical lower limb ischemia CELLULITIS RT FOOT Procedures EMERGENCY Referral ID Status Reason Start Date Expiration Date Visits Requ ested Visits Authorized [id number] 1 1 Encounter Details Date Type Department Care Team Description 08/04/2017 Office Visit Cardiology [place] [facility] Danette Maxwell Incisional pain; [facility] A, COPING MACHINE ASSEMBLER Ischemic cardiomyopathy; [facility] ASCVD (arteriosclerotic card iovascular disease); [place], [place] Systolic heart failure, unspecified hear t failure chronicity [phone] CARDIOLOGY [phone] [place], [place] 0[address] Social History Tobacco Use [...] in this encounter Progress Notes Danette Maxwell, COPING MACHINE ASSEMBLER - 08/04/2017 3:00 PM EST ID and [...] painful and swollen right foot right d/t EARLY CHILDHOOD EDUCATION SPECIALIST pseudoaneurysm with embolization to the right [...] Dolan MD [facility] Dr [place], [place] [address] (Wo rk) 05/28/2022 Laboratory Appointment Lab 05/28/2022 Office Visit Cardiology Zulma Dolan MD [facility] [place] [address] Liz Poole PA [facility] [place] [address] 06/10/2022 Office Visit Dermatology Laura Scherer MD [facility] DR TE[address] GR[address]DERMAT [place], [place] [address] (Wo rk) documented as of [...] sensation documented in this encounter Care Teams Field Training Manager Relationship Specialty Start Date End Date Lovely Vicente MD PCP - General 04/16/[address] [place] [address] documented as of this encounter
--- OUTSIDE RECORDS SUMMARY | 2022-05-08 02:25 | XMS_ITS | Encounter Summary ---
:1945 Author Organization [facility] [place] [address] Care Team Providers Name Role Phone Lovely Vicente MD Primary Care Provider Reason for Visit Auth/Cert Specialty Diagnoses / Procedures Referred By Contact Refer red To Contact Diagnoses Critical lower limb ischemia CELLULITIS RT FOOT Procedures EMERGENCY Referral ID Status Reason Start Date Expiration Date Visits Requ ested Visits Authorized [id number] 1 1 Encounter Details Date Type Department Care Team Description 08/04/2017 [address] En[address] XRay at [facility] Danette Maxwell Incisional pain [address] [place] [address] Dr Gomes, BASEBALL GLOVE SHAPER [facility] [address] CARDIOLOGY [place], [place] [address] Social History Tobacco Use Types [...] Cardiology Zulma Dolan MD [facility] [place], [place] [address] (Wo rk) 05/28/2022 Laboratory Appointment Lab 05/28/2022 Office Visit Cardiology Zulma Dolan MD [facility] [place] [address] Liz Poole PA [facility] [place] [address] 06/10/2022 Office Visit Dermatology Laura Scherer MD [facility] DR TEJA GR-DERMAT [place], [place] 0[address] (Wo rk) documented as [...] original. EXAMINATION: XR CHEST PA AND LATERAL (Rebit) CLINICAL HISTORY: Checking sternal stabi lity/assess wires [...] Daniele gutiérrez 08/04/2017 4:13 PM Danette Maxwell BASEBALL GLOVE SHAPER IMG DX ORDERABLES documented in this encounter Visit Diagnoses Diagnosis Incisional pain Disturbance of skin sensation documented in this encounter Care Teams Patient Financial Representative Relationship Specialty Start Date End Date Lovely Vicente MD PCP - General 04/16/[address] [place] [address] documented as of this encounter
--- OUTSIDE RECORDS SUMMARY | 2022-05-08 02:25 | XMS_ITS | Encounter Summary ---
:1945 [place] [address] Care Team Providers Name Role Phone Lovely Vicente MD Primary Care Provider Encounter Details Date Type Department Care Team Description 07/29/2017 Hospital Encounter Vascular Lab at [facility]ritic mon[facility] Huber lower limb [facility] [place] [address] Social History Tobacco Use Types Packs/Day Years [...] Zulma Dolan MD [facility] [place], [place] [address] (Wo rk) 05/28/2022 Laboratory Appointment Lab 05/28/2022 Office Visit Cardiology Zulma Dolan MD [facility] [place] [address] Liz Poole PA [facility] [place] [address] 06/10/2022 Office Visit Dermatology Laura Scherer MD [facility] DR [address]-DERMAT [place], [place] [address] (Wo rk) documented as of this encounter Visit Diagnoses Diagnosis Critical lower limb ischemia Unspecified circulatory system disorder documented in this encounter Care Teams Freight Inspector Relationship Specialty Start Date End Date Lovely Vicente MD PCP - General 04/16/[address] [place] [address] documented as of this encounter
--- OUTSIDE RECORDS SUMMARY | 2022-05-08 02:26 | XMS_ITS | Encounter Summary ---
:1945 [place] [address] Care Team Providers Name Role Phone Lovely Vicente MD Primary Care Provider Encounter Details Date Type Department Care Team Description 07/16/2017 Telephone Endocrinology at [facility] Manuela Holliday, [facility] [place] [address] ENDOCRINOLOGY DEPT [phone] [place], [place] [address] (Wo rk) Social History [...] Dolan MD [facility] Dr [place], [place] [address] (Wo rk) 05/28/2022 Laboratory Appointment Lab 05/28/2022 Office Visit Cardiology Zulma Dolan MD [facility] [place] [address] Liz Poole PA [facility] [place] [address] 06/10/2022 Office Visit Dermatology Laura Scherer MD [facility] [address] TEJA GR-DERMAT [place], [place] [address] (Wo rk) documented as of this encounter Visit Diagnoses Not on filedocumented in this encounter Care Teams Skeet Operator Relationship Specialty Start Date End Date Lovely Vicente MD PCP - General 04/16/[address] [place] [address] documented as of this encounter
--- OUTSIDE RECORDS SUMMARY | 2022-05-08 02:26 | XMS_ITS | Encounter Summary ---
:1945 [place] [address] Care Team Providers Name Role Phone Lovely Vicente MD Primary Care Provider Reason for Visit Reason Onset Date Comments Questions 07/16/2017 fluid retention Encounter Details Date Type Department Care Team Description 07/16/2017 Telephone Cardiology at [facility] Martha Comer, Questions ([facility] RN retention ) [place] [address] Social History Tobacco Use Types Packs/Day [...] the direct number to the HF team ([phone]). She is aware of his appt with CLOSING MANAGER Hans on 07/21/17 and the need for labs prior to that visit. verbalized good understanding of the current POC. documented in this encounter Plan of Treatment Upcoming Encounters Date Type Specialty Care Team Description 05/28/2022 Appointment Cardiology Zulma Dolan MD [facility] [address] [place], [place] [address] (Wo rk) 05/28/2022 Laboratory Appointment Lab 05/28/2022 Office Visit Cardiology Zulma Dolan MD [place] [address] Liz Poole PA [facility] [place] [address] 06/10/2022 Office Visit Dermatology Laura Scherer MD [facility] DR TEJA GR-DERMAT [place], [place] [address] (Wo rk) documented as of this encounter Visit Diagnoses Not on filedocumented in this encounter Care Teams Floor Space Allocator Relationship Specialty Start Date End Date Lovely Vicente MD PCP - General 04/16/[address] [place] [address] documented as of this encounter
--- OUTSIDE RECORDS SUMMARY | 2022-05-08 02:27 | XMS_ITS | Encounter Summary ---
:1945 Author Organization [facility] [place] [address] Care Team Providers Name Role Phone Lovely Vicente MD Primary Care Provider Encounter Details Date Type Department Care Team Description 07/08/2017 Orders Only [facility] [place] [place] [address] Social History Tobacco Use Types Packs/Day [...] Dolan MD [facility] er [place], [place] [address] (Wo rk) 05/28/2022 Laboratory Appointment Lab 05/28/2022 Office Visit Cardiology Zulma Dolan MD [facility] [place] [address] Liz Poole PA [facility] [place] [address] 06/10/2022 Office Visit Dermatology Laura Scherer MD [facility] ER DR [address] [place] [address] (Wo rk) documented as of this encounter [...] Mccollum ? (Age): 1945(72y) Med Rec#: ? [id number] ?Sex: ?M ? Site Loc: ? Ht / Wt: ??(cm)/ (kg) ? Pt. Loc: ? Study Date: ?? 07/07/2017 ?Pt. Type: Tape: ? Referring: Yuan Retana Reading: Yifan Perez MD ([id number]) Performing: Yifan Perez MD ([id number]) Diagnosis: SUMMARY: 1. Intraoperative AVELINO performed at the [facility] of Dr. Mike for the [...] ? Mid-Inferior ?Hypokinetic ? Mid-Inferoseptal ?Hypokinetic ? [place]-Septal ? Hypokinetic ? [place]-Anterior ? Hypokinetic ? [place]-Lateral ?Hypokinetic ? [place]-Inferior ? Hypokinetic ? [place]-Tip ?Not Seen ? This report has been electronically sign ed by: _ Yifan Perez MD ? 07/08/2017 12 :25:18 Images reviewed and interpretation verif ied [facility] Cardiac Ultrasound Laboratory Procedure Note Yifan Perez MD - 07/08/2017Formatt ing of this note might be different from the original. Procedure: Transesophageal Echocardiogra m Patient: NATALYA MCBRIDE(Age): [birth year]72y) Med Rec#: [id number] Sex: M Site Loc: Ht / Wt: (cm)/ (kg) Pt. Loc: Study Date: 07/07/2017 Pt. Type: Tape: Referring: Yuan Retana Reading: Yifan Perez MD ([id number]) Performing: Yifan Perez MD ([id number]) Diagnosis: SUMMARY: 1. Intraoperative AVELINO performed at [...] Hypokinetic Mid-Posterolateral Hypokinetic Mid-Inferior Hypokinetic Mid-Inferoseptal Hypokinetic [place]-Septal Hypokinetic [place]-Anterior Hypokinetic [place]-Lateral Hypokinetic [place]-Inferior Hypokinetic [place]-Tip Not Seen This report has been electronically sign ed by: _ Yifan Perez MD 07/08/2017 12:25:18 Images reviewed and interpretation elvie hwang [facility] Cardiac Ultrasound Laboratory Unknown ECHO ORDERABLES documented in this encounter Visit Diagnoses Not on filedocumented in this encounter Care Teams Relief Master Relationship Specialty Start Date End Date Lovely Vicente MD PCP - General 04/16/[address] [place] [address] documented as of this encounter
--- OUTSIDE RECORDS SUMMARY | 2022-05-08 02:27 | XMS_ITS | Encounter Summary ---
:1945 Author Organization [facility] [place] [address] Care Team Providers Name Role Phone Lovely Vicente MD Primary Care Provider Reason for Referral Consultation (Routine) - Closed Specialty Diagnoses / Referred By Contact Referred To Contact Procedures Cardiac Rehabilitation Diagnoses S/P CABG x 3 Yuan Webber, Cardiac Rehab, [address] [place], [place] CARDIOTHORACIC [address] [place] [address] Referral ID Status Reason Start Date Expiration Date Visits V isits Requested Authorized [id number] Closed Consult, 07/14/2017 01/10/2018 36 36 Test & Treat Reason for Visit Auth/Cert Specialty Diagnoses / Procedures Referred By Contact Refer red To Contact Diagnoses STEMI (ST elevation myocardial infarction) NSTEMI STEMI Procedures CARDIAC CATHETERIZATION NAYE IPI Referral ID Status Reason Start Date Expiration Date Visits Requ ested Visits Authorized [id number] 1 1 Encounter Details Date Type Department Care Team Description 07/05/2017 - Hospital Encounter Cardiac Special Daphne Shahid MD [facility] [place] [address] Non-ST elevation myocardial infarction ( NSTEMI); 07/14/2017 Care Unit Yuan Preciado MD [facility] DR [place] [address] S/P CABG x 3 [place] [id number] Social History Tobacco Use Types Packs/Day Years [...] , @ 1:20p Patient to follow-up with Campus Executive Director/heart failure team in one week. An appointment will be made for you. You may call [phone] Patient to follow-up with Cardiac Surgery, Dr. Yuan Webber, in ~ 4 weeks with CXR, EKG. Inpatient Provider Contact Information: [facility] Section of Cardiac Surgery [facility] [address] FAX [phone] Discharge Diagnoses (Hospital Problems) Primary Diagnoses: CAD [...] performed by Yuan Webber MD at [facility] MAIN OR ??? PRO CABG, ARTERY-VEIN, TWO N/A 07/07/2017 @CABG, TWO VENOUS GRAFTS & ARTERIAL GRAFT (WRVU 7.93) performed by Yuan Webber MD at [facility] MAIN OR ??? PRO COLONOSCOPY, REMV LESN, SNARE 01/16/2014 COLONOSCOPY, POLYPECTOMY, REMOVAL LESION BY SNARE performed by Nohemi Jaimes MD at [facility] ENDOSCOPY ??? PRO ENDOSCOPY W/VIDEO-ASST VEIN HARVEST, CABG Right 07/07/2017 ENDOSCOPIC HARVEST VEIN(S) FOR CABG (WRVU 0.31) performed by Yuan Webber MD at [facility] MAIN OR ??? PRO THYROIDECTOMY 03/28/2013 THYROIDECTOMY, TOTAL OR COMPLETE performed by Manny Mcknight MD at [facility] MAIN OR Prior To Admission Medications Prescriptions Prior to Admission Medication Sig Dispense Refill Last Dose ??? levothyroxine (SYNTHROID) 175 mcg Tablet Take 1 tablet by mouth daily. 90 tablet 3 07/05/2017 [id number] ??? ascorbic acid, vitamin C, (VITAMIN C) [...] Hospital Course: Gregory Hoang was admitted to [facility] on 07/05/2017 via the Cardiology Service. During his hospital course, he was taken emergently to the labor contract analyst for an ongoing STEMI. An IABP [...] not take or discontinue any prescription or jakg-apb-ukmklwv medications without asking your doctor or pharmacist [...] day to have your insulin doses adjusted. [facility] Endocrine clinic office Discharge Instructions: Call your doctor if: You have a fever of greater than 101 degrees, shaking chills, if you develop redness or drainage from your incision sites, or if you have questions. Please call your surgeon's office if you have any discharge or drainage from your chest incision. Your surgeon, Dr. Yuan Webber and/or the Cardiac Surgery Physician Cutter And Presser Team may be reached at . Weight: [...] Dr. Yuan Webber. You may use a [place] Track or treadmill but avoid any pulling [...] friends, go to a movie, go to religious, etc. Heavy activities: No hunting, skiing, jogging, snow shoveling, snowmobiling, lawn mowing, swimming, golf or tennis until after your return appointment with the surgeon. Do not ride motorcycles, [employer] tractors or horses. Avoid the use of [...] should resume a low fat, low cholesterol, [place] Heart Association Diet/Diabetic diet. Driving: No driving [...] , @ 1:20p Patient to follow-up with Campus Executive Director/heart failure team in one week. Appointment will be made for you. You may call [phone] Patient to follow-up with Cardiac Surgery, Dr. [...] THREE L Lab 3L [facility] [phone] 09/07/2017 4:00 PM Luz Prescott MD Endocrinology at [place] [phone] Future Orders Complete By Expires EKG 12 Lead [EKG1 Custom] 08/14/2017 02/13/2018 Process Instructions: Scheduling Instructions: Questions: Which location will this be performed?: [place] Is a rhythm strip needed?: No If EKG Reason is Pre-op Evaluation, indicate diagnosis for surgery.: XR Chest PA & Lateral (Generic) [[id number] Custom] 08/14/2017 02/13/2018 Process Instructions: Scheduling Instructions: Questions: Where will study be performed?: [place] Radiology Portable exam?: Reason for exam and clinical history: CABG x 3 Other pertinent information: Stat read required?: Date of injury if applicable: Requested Time: Referral to Cardiac Rehab [SOO286 Custom] As directed Process Instructions: If no progress note charted, please enter Clinical details in comments. Scheduling Instructions: Questions: My question or request is: s/p CABG. Cardiac rehab at [facility] Referral to Home Health - at DISCHARGE [JHS1720 CPT(R)] As directed Process Instructions: Scheduling Instructions: Comments: DOCUMENTATION FOR VNA SERVICES (INCLUDING THOSE PATIENTS WITH MEDICARE COVERAGE REQUIRING HOME VNA SERVICES AND/OR HOSPICE SERVICES) PATIENT'S LOCATION: Gregory Hoang [address] [place] [address] [place] [id number] (home) Telephone Information: Well Drill Operator's Name: self In discussion with the attending physician, it is certified that this patient is under their care and that they, or a Nurse Practitioner, or Physician Cutter And Presser who is working directly with them, had [...] [facility] ([facility] [place] [employer]-is in [place]) PHONE: [phone] FAX: [phone] RN orders: Cardiopulmonary assessment, incisional assessment, assess vital signs, assessment of rehab progress, medication management and effectiveness, home safety evaluation. Please draw INR if indicated and send result to:Dr Vicente [phone] PT ORDERS: Continue rehab for endurance, gait stability and strength with mobility and transfers. Home safety evaluation. Home exercise program if appropriate. Start of Care Date:24-48 hours after discharge SPECIAL INSTRUCTIONS: For any follow up questions, needs, or issues please call the Cardiac Surgery Office at [phone] FOR MEDICARE ONLY: (please delete this section [...] [facility] Section of Cardiac Surgery [facility] [address] FAX [phone] Date: 07/14/2017 CC: MD Ivania Cr Betsy, [place] [address] [place] [phone] documented in this encounter Discharge Instructions Discharge [...] day to have your insulin doses adjusted. [facility] Endocrine clinic office Patient InstructionsStMartha mcdonald APRN [...] not take or discontinue any prescription or jktz-ner-romhwth medications without asking your doctor or pharmacist [...] juice or regular (not diet) soda 6 combionics small box of raisins 4 glucose tablets [...] day to have your insulin doses adjusted. [facility] Endocrine clinic office ? Discharge Instructions: ?? Call your doctor if: You have a fever of greater than 101 degrees, shaking chills, if you develop redness or drainage from your incision sites, or if you have questions. Please call your surgeon's office if you have any discharge or drainage from your chest incision. Your surgeon, Dr. Yuan Webber and/or the Cardiac Surgery Physician Cutter And Presser Team may be reached at . ?? [...] Dr. Yuan Webber. You may use a [place] Track or treadmill but avoid any pulling [...] friends, go to a movie, go to religious, etc. ?? Heavy activities: No hunting, skiing, jogging, snow shoveling, snowmobiling, lawn mowing, swimming, golf or tennis until after your return appointment with the surgeon. Do not ride motorcycles, [employer] tractors or horses. Avoid the use of [...] should resume a low fat, low cholesterol, [place] Heart Association Diet/Diabetic diet. ?? Driving: No [...] @ 1:20p ?? Patient to follow-up with Campus Executive Director/heart failure team in one week. An appointment has been made for you, you can call [phone] ?? Patient to follow-up with Cardiac Surgery, [...] THREE L Lab 3L [facility] [phone] ?? 09/07/2017 4:00 PM Luz Prescott MD Endocrinology at [place] [phone] Future Orders Complete By Expires ?? EKG 12 Lead [EKG1 Custom] 08/14/2017 02/13/2018 ?? Process Instructions: ? Scheduling Instructions: ? Questions: ? Which location will this be performed?: [place] ?? Is a rhythm strip needed?: No ?? If EKG Reason is Pre-op Evaluation, indicate diagnosis for surgery.: ?? XR Chest PA & Lateral (Generic) [[id number] Custom] 08/14/2017 02/13/2018 ?? Process Instructions: ? Scheduling Instructions: ? Questions: ? Where will study be performed?: [place] Radiology ?? Portable exam?: ?? Reason for exam and clinical history: CABG x 3 ?? Other pertinent information: ?? Stat read required?: ?? Date of injury if applicable: ?? Requested Time: ?? Referral to Cardiac Rehab [[id number] Custom] As directed ? Process Instructions: ?? [...] referrals are placed. Patient requests referral to [facility] PHONE: [phone] FAX: [phone] Expected date of discharge: 07/14 Referral routed to the Molybdenum Steamer Operator for matching with agency/vendor and to [...] day to have your insulin doses adjusted. [facility] Endocrine clinic office Kathie Carrera APRN [facility] Endocrinology Diabetes Management Pager [phone] minutes of this 35 minute visit [...] [facility] ([facility] [place] [employer]-is in [place]) PHONE: [phone] FAX: [phone]. Expected date of discharge: 07/14/17 Referral routed to the Molybdenum Steamer Operator for matching with agency/vendor and to [...] hours. If BG remains greater than 240, xnyesh52 units (no more than three times) &??call [...] Will continue to follow Katerin Azul APRN [facility] Endocrinology Diabetes Management Pager [phone] 15 minutes of this 25 minute visit [...] of infiltration/extravasation Discussed plan of care with BRUSH CLEARER SURVEYING and RN. Elevate exrtemity and apply intermittent [...] tape and identifier in the photo) MEDICAL INSURANCE CLERK CARING FOR THIS PATIENT WILL CONTINUE [...] tape and identifier in the photo) MEDICAL INSURANCE CLERK CARING FOR THIS PATIENT WILL CONTINUE [...] addressed by this sports book writer.All of Mr. Hoang's responses were entirely appropriate. Images of infiltrates attached here. Martha Sharp APRN - 07/13/2017 8:01 AM EST Cardiac Surgery Progress Note: ID: [id number] 72 year old male POD#6 s/p CABGx3 [...] discharge planning needs. I have provided the [facility], Office of Care Management letter from the Bed Rubber pertaining to rehab referrals. I have also provided a letter describing our affiliations within the [facility] and educated them about their right [...] date of discharge: 07/14 Note routed to Molybdenum Steamer Operator who will communicate referrals to facilities [...] hours. If BG remains greater than 240, oedbyi61 units (no more than three times) & [...] hours. If BG remains greater than 240, pwlcvu63 units (no more than three times) & call for new basal insulin orders. ??If less than 240 after two hours, give no insulin and resume prior schedule. Will continue to follow Katerin Patel. STACIE Azul [facility] Endocrinology Diabetes Management Pager [phone] 20 minutes of this 35 minute visit was spent with the patient in counseling on diabetes and treatment plan, reviewing all glucose and insulin data as well as relevant laboratory results with the patient, and coordination of care on the inpatient unit including nursing and primary team. Makayla Stevenson APRN - 07/12/2017 9:52 AM EST Cardiac Surgery Progress Note: ID: [id number] 72 year old male POD#5 s/p CABGx3 [...] 7:18 PM EST Patient arrived from [facility]. VSS. MSI dressing pulled off [...] hours. If BG remains greater than 240, whnero82 units (no more than three times) & [...] AM EST Cardiac Surgery Progress Note: ID: [id number] 72 year old male POD#4 s/p CABGx3 [...] hours. If BG remains greater than 240, beddug72 units (no more than three times) & [...] AM EST Cardiac Surgery Progress Note: ID: [id number] 72 year old male POD#3 s/p CABGx3 [...] Gas) No results found for: PHART, PO2ART, TWQ4NRP Assessment/Plan: 72 year old male POD#3 s/p [...] Encounter Note Patient Name: Gregory Hoang : [id number] MR#: [id number] Admit Date: 07/05/2017 4:20 PM Hospital Day 4 days Narrative: Patient was sitting in chair, hugging heart pillow, opened his eyes, nodding to come into room Assessment: Patient was sleepy. Intervention and Outcome: Introduced forensic psychologist services and patient reached his hand out in appreciation. Follow-up: Event Sales Assistant remains available for support. Time in Direct [...] AM EST Cardiac Surgery Progress Note: ID: [id number] 72 year old male POD#2 s/p CABGx3 [...] DW Attending Surgeon on rounds. Signed: STEPHANIE Ibqal [facility] Section of Cardiac Surgery Date: 07/09/2017 Magnolia Santiago [facility] - 07/09/2017 1:[address] [...] when IABP d/c'ed. Gretchen Carolina, PT Pager [phone] Maddison Cee PA - 07/08/2017 11:27 AM EST Cardiac Surgery Progress Note: ID: [id number] 72 year old male POD#1 s/p CABGx3 [...] Attending Surgeon on rounds. Signed: STEPHANIE Iqbal [facility] Section of Cardiac Surgery Date: 07/08/2017 Nick [...] unit. NICK SEGAL MD 07/08/2017 Jay Munoz [facility] - 07/08/2017 4:[address] [...] in place in R femoral. No hematoma. CONCRETE MIXING PLANT SUPERINTENDENT- Intact Psych- Anxious Skin- Dry, no peripheral [...] intact. IABP in place in R femoral. CONCRETE MIXING PLANT SUPERINTENDENT- Intact Psych- Anxious Skin- Dry, no peripheral [...] note for details. DAPHNE SHAHID MD Pager [phone] Jet Mckenna MD - 07/05/2017 6:48 PM EST Preliminary Cardiac Catheterization Procedure Note: Procedure(s) performed: Left heart cath, IABP insertion Access: Right DIRECTOR OF MANUFACTURING OPERATIONS-->8fr IABP A time-out was conducted prior to [...] Heparin gtt maintained. Pt transferred to labor contract analyst. documented in this encounter H&P Notes Daphne Shahid MD - 07/05/2017 6:08 PM EST CARDIOLOGY HISTORY & PHYSICAL EXAM Date of Admission: 07/05/2017 ( Hospital Day 0 days ) Responsible Attending: Daphne Shahid MD PCP: Lovely Vicente MD PCP#: [phone] Patient Active Problem List Diagnosis Code ??? [...] significant valvular disease. Taken to the labor contract analyst urgently for ongoing STEMI. [facility] Labs: [...] I/O - s/p lasix in the labor contract analyst, redose to aim net neg 1L [...] - ISS - hold metformin - f/u [facility] #Home Meds - continue levothyroxine 175mcg - CPAP at night # Routine - DVT PPx: heparin drip - Diet: NPO - Code Status: FULL - Dispo: [facility] Cedric Bey MD Internal Medicine, PGY-2 Cardiology S1, Team Pager # [phone] CARDIOLOGY ATTENDING NOTE Patient: Gregroy Hoang Date of Service: 07/06/2017 Date of [...] amenable for PCI. DAPHNE SHAHID MD Pager [phone] documented in this encounter Miscellaneous Notes Consult Note - Daphne Shahid MD - 07/14/2017 11:46 AM EST Heart Failure Service Inpatient Consult Note Gregory Hoang Date of : 1945 Age: 72 y.o. Today's date: 07/14/17 PCP: Lovely Vicente MD RAIL TRANSPORTATION TABELER: None Place of Service: [facility] Reason for Consult: Dr. Webber has requested [...] performed by Yuan Webber MD at [facility] MAIN OR ??? PRO CABG, ARTERY-VEIN, TWO N/A 07/07/2017 @CABG, TWO VENOUS GRAFTS & ARTERIAL GRAFT (WRVU 7.93) performed by Yuan Webber MD at [facility] MAIN OR ??? PRO COLONOSCOPY, REMV LESN, SNARE 01/16/2014 COLONOSCOPY, POLYPECTOMY, REMOVAL LESION BY SNARE performed by Nohemi Jaimes MD at [facility] ENDOSCOPY ??? PRO ENDOSCOPY W/VIDEO-ASST VEIN HARVEST, CABG Right 07/07/2017 ENDOSCOPIC HARVEST VEIN(S) FOR CABG (WRVU 0.31) performed by Yaun Webber MD at [facility] MAIN [...] EKG 07/14/17: NSR 75 bpm, DIRECTOR OF MANUFACTURING OPERATIONS anterior infarct, LAD CXR 07/11/17: FINDINGS: Sternotomy wires. The patient has been extubated, left chest tube removed, and Yoder-Suzi catheter removed since the 07/07/2017 study. Atelectasis [...] was discussed with Zehra. Jaden Kelley MD Warehouse Administrative Assistant Pager [phone] CARDIOLOGY ATTENDING NOTE Patient: Gregory Hoang Date [...] heart failure clinic. DAPHNE SHAHID MD Pager [phone] Plan of Care - Alden Chavarria, LENS ENGRAVER - 07/14/2017 11:35 AM EST Problem: Patient [...] Discharge Disposition: home with assist Alden Chavarria, LENS ENGRAVER Pager: [phone] Inpatient Physical Therapy Problem: Acute Rehab Services [...] sit/sit to supine -- Bed Mobility Goal, [place] Level supervision required -- Bed Mobility Goal, [...] - 3 days -- Gait Training Goal, [place] Level supervision required -- Gait Training Goal, [...] days -- Transfer Training Goal, Activity Type nhs-uz-udwkg/xtvgo-cy-hzd;cit-rh-ejidm/zbkqj-ya-ihg;toilet -- Transfer Train Goal, [place] Level supervision required -- Transfer Training Goal, [...] keeping present for 2 days per family. Air Export Logistics Manager noted of frustrations, house keeping sent to room. Patient offered showered twice, refused. at bedside, frustrated that shower not complete, informed that patient had refused several times. requesting to see 3D DESIGNER, paged sent to Martha, will come to bedside (middle of consult). not willing to wait, Martha notified that family had gone home. Encouraged to come for morning rounds a t 8am. Diabetes team at bedside - insulin adjustments made. Call cabello in reach. Continue to monitor. PLAN MOVING FORWARD: Ambulate, dressing changes BID, Please change drsg at 4am per Martha 3D DESIGNER request. INDIVIDUALIZED FALL PREVENTION INTERVENTIONS: Patient-specific fall [...] levels on the lower side, 60ml of [place] juice given after a FS of 80. [...] Anticipated Discharge Disposition: home with assist Pager: [phone] CLARISSA SEGAL, PT 07/12/2017 Physical Therapy Rehabilitation [...] to sit/sit to supine Bed Mobility Goal, [place] Level supervision required Bed Mobility Goal, Additional Goal adheres to psternal precautions for transfer Goal: Gait Training Goal Stand Alone Therapy Goal Outcome: Ongoing (Interventions Implemented as Appropriate) 07/12/17 1225 Gait Training Goal Gait Training Goal, Date Established 07/12/17 Gait Training Goal, Time to Achieve 2 - 3 days Gait Training Goal, [place] Level supervision required Gait Training Goal, Assist [...] 3 days Transfer Training Goal, Activity Type rjp-nd-htacs/pvrsi-sy-mib;rst-pi-fcvpp/tfqvw-sa-mdr;toilet Transfer Train Goal, [place] Level supervision required Transfer Training Goal, Additional Goal adheres to sternal precautions during transfer Consult Note - Octavia Vaughn RN - 07/12/2017 10:50 AM EST [facility] CARDIAC REHABILITATION Gregory Hoang was seen today [...] IV site, amio to other piv and CAREGIVER ASSISTED LIVING at bedside to help assess, IV removed. [...] Outcome: Ongoing (Interventions Implemented as Appropriate) 07/11/17199907/11/17200907/12/17 [facility] Daily Care Interventions Self-Care Promotion [...] staff, he stood and marched in place. [place] weak, wanting to sit back down. Remained [...] Outcome: Ongoing (Interventions Implemented as Appropriate) 07/05/17 7821 Mutuality/Individual Preferences What Anxieties, Fears or Concerns [...] Health/Prescription Coverage: Primary Insurance: MEDICARE Secondary Insurance: [employer] [place] Prescription Coverage: yes Preferred Pharmacy: [facility] [place] Other: none Primary Care Provider: Lovely Vicente MD [phone] Patient/Caregiver Goals of Treatment:live and get my breath back Potential Needs for Transition of Care: Rehab/SNF: [facility]; [facility] Home Health: NA DME: TBD Dialysis: na Community Resources: available Transportation: yes Other: none Anticipated Barriers to Discharge/Special Considerations: none Plan: Likely SNF Rehab before home A member of the Care Management team will continue to monitor progress, follow for continuity of care and assist with transition of care planning. ERLIN Weiss Pager: [phone] Consult Note - Katerin Azul RN - [...] to d/c gtt and start CF. buttermaker continuous churn diabetes care: Medications - Outpatient treatment regimen recommendations pending based on the hospital course. Monitoring - continue BG tid ac & hs Diet - low fat/low carb diet Exercise - weight-bearing exercise 30 min/day, as tolerated Thank you for allowing us to provide care for your patient W/E coverage, Dr. Jeane Tatum, pager [phone] Katerin Patel. STACIE Azul Endocrinology Diabetes Management Pager [phone] Plan of Care - Stephanie Godoy RN [...] Webber MD - 07/07/2017 6:27 PM EST [facility] Operative Note Patient Name: Gregory Hoang : [id number] MR#: [id number] Case Date: 07/07/2017 Surgeon: Surgeon(s) and Role: * Yuan Webber MD - Primary * Michael Drake PA - Physician Cutter And Presser * Linda Flores PA - Physician Cutter And Presser Preoperative diagnosis: 3VD Postoperative diagnosis: CAD, severe [...] Operative Note Patient Name: Gregory Hoang : [id number] MR#: [id number] Case Date: 07/07/2017 Surgeon: Surgeon(s) and Role: * Yuan Webber MD - Primary * Michael Drake PA - Physician Cutter And Presser * Linda Flores PA - Physician Cutter And Presser Preoperative diagnosis: 3VD Postoperative diagnosis: CAD, severe [...] code status: Full Code Katty Davidjose, MS3 [facility] at [facility] Cardiology S1 (Pager [phone]) Plan of Care - Emelia Ibarra RN [...] with other involved physicians Yuan Webber MD [phone] Med Student Progress Note - Katty Hahn [...] BiPAP - s/p lasix in the labor contract analyst, was net -1.5L - s/p plavix [...] - Dispo: [facility] Katty Hahn, M3 [facility] Cardiology S1 (Pager [phone]) Plan of Care - Stephanie Godoy RN [...] urinal without difficulty. Lasix given in labor contract analyst, 1.4 L out at this time. [...] Dolan MD [facility] [address] [place] [address] (Wo lissa) 05/28/2022 Laboratory Appointment Lab 05/28/2022 Office Visit Cardiology Zulma Dolan MD [facility] [place] [address] Liz Poole PA [facility] [place] [address] 06/10/2022 Office Visit Dermatology Laura Scherer MD [facility] [address] [place], [place] [address] (Wo rk) Scheduled Orders Name [...] procedure are i n the results section. SILK EXAMINER SCAN 07/15/2017 12:00 Res ults for this [...] Routine 07/08/2017 4:00 Results f or this ([facility]/CG) AM EST procedure are i n the [...] Routine 07/06/2017 7:40 Results f or this ([facility]P) PM EST procedure are i n the [...] section. TYPE AND SCREEN Routine 07/06/2017 12:00 ([facility]P/SHANDA) PM EST APTT STAT 07/06/2017 11:24 Results [...] Routine 07/06/2017 8:10 Results f or this ([facility] AM EST procedure are i n the [...] Routine 07/05/2017 8:20 Results f or this ([facility] PM EST procedure are i n the [...] Timed 07/05/2017 4:55 Results f or this ([facility] PM EST procedure are i n the [...] 2017 EXAMINATION: XR CHEST PA AND LATERAL (FOCUS TrainrIC) CLINICAL HISTORY: CABG x 3 TECHNIQUE: PA [...] Teague APRN IMG DX ORDERABLES SCAN DOC: SILK EXAMINER (07/15/2017 12:00 AM EST) Narrative 07/15/2017 12:00 [...] Glucose 186 65 - 199 [facility] mg/dL [facility] Comment: [...] Address City/[facility]/[place] [address] POCT Glucose (07/14/2017 7:52 AM EST) athologist Signature POC Glucose 126 65 - 199 [facility] mg/dL [facility] Comment: [...] Address City/State/[place] [address] (ABNORMAL) Prothrombin Time (07/14/2017 [...] Address City/[facility]/[place] [address] Potassium (07/14/2017 4:46 AM EST) athologist Signature Potassium 4.3 3.5 - 5.0 [facility] mmol/L [facility] Comment: [...] Address City/[facility]/[place] [address] POCT Glucose (07/14/2017 4:34 AM EST) athologist Signature POC Glucose 115 65 - 199 [facility] mg/dL [facility] Comment: [...] Organization Address City/State/ZIP Code Phon e Number [place] [id number] POCT Glucose (07/13/2017 11:33 PM EST) athologist Signature POC Glucose 132 65 - 199 [place] mg/dL [facility] [...] Address City/State/ZIP Code Phon e Number [address] POCT Glucose (07/13/2017 9:25 PM EST) athologist Signature POC Glucose 121 65 - 199 [place] RY[place] mg/dL [facility] [...] Address City/State/ZIP Code Phon e Number [address] POCT Glucose (07/13/2017 4:55 PM EST) athologist Signature POC Glucose 79 65 - 199 [place] RY[place] mg/dL [facility] [...] Address City/State/[place] [address] POCT Glucose (07/13/2017 11:16 AM EST) athologist Signature POC Glucose 163 65 - 199 [facility] mg/dL [facility] Comment: [...] Address City/State/ZIP Code Phon e Number [address] POCT Glucose (07/13/2017 8:07 AM EST) athologist Signature POC Glucose 96 65 - 199 [facility] Comment: [...] Address City/State/ZIP Code Phon e Number [address] (ABNORMAL) Prothrombin Time (07/13/2017 [...] Organization Address City/State/ZIP [place] [address] (ABNORMAL) Basic Metabolic Panel (non-fasting) (07/13/2017 4:26 AM EST) athologist Signature Glucose Lvl 95 65 - 199 [facility] mg/dL [facility] Comment: [...] or in patients with acute kidney failure. [email or web address]/DHnkdep [email or web address]/DHMCnkf Specimen Anatomical Collection Method Collection Time Receive d Time (Source) Location / / Volume Laterality Blood specimen 07/13/2017 4:26 AM 017 4:46 (specimen) EST AM EST Resulting Agency Comment Spec In Lab Makayla Wilson APRN CHEMISTRY ORDERABLES Performing Organization Address City/[facility]/ZIP Code Phon e Number [address] POCT Glucose (07/13/2017 3:52 AM EST) athologist Signature POC Glucose 93 65 - 199 [facility] R[facility]AN mg/dL [facility] [...] Address City/[facility]/ZIP Code Phon e Number [address] POCT Glucose (07/13/2017 12:21 AM EST) athologist Signature POC Glucose 80 65 - 199 [place] RY[place] mg/dL [facility] [...] Address City/[facility]/[place] [address] POCT Glucose (07/12/2017 8:22 PM EST) athologist Signature POC Glucose 119 65 - 199 [place] RYAN mg/dL [facility] [...] Address City/State/ZIP Code Phon e Number [address] POCT Glucose (07/12/2017 4:02 PM EST) athologist Signature POC Glucose 114 65 - 199 [place] RY[place] mg/dL [facility] [...] Address City/State/ZIP Code Phon e Number [address] POCT Glucose (07/12/2017 11:28 AM EST) athologist Signature POC Glucose 164 65 - 199 [facility] RYAN mg/dL [facility] [...] Address City/State/ZIP Code Phon e Number [address] POCT Glucose (07/12/2017 7:34 AM EST) athologist Signature POC Glucose 109 65 - 199 [facility] RYAN mg/dL [facility] [...] Organization Address City/State/ZIP [place] [address] (ABNORMAL) Basic Metabolic Panel (non-fasting) (07/12/2017 4:11 AM EST) P athologist Signature Glucose Lvl 92 65 - 199 [facility] mg/dL [facility] Comment: [...] or in patients with acute kidney failure. [email or web address]/DHnkdep [email or web address]/DHMCnkf Specimen Anatomical Collection Method Collection Time Receive d Time (Source) Location / / Volume Laterality Blood specimen 07/12/2017 4:11 AM 017 8:57 (specimen) EST AM EST Resulting Agency Comment Spec In Lab Makayla Wilson APRN CHEMISTRY ORDERABLES Performing Organization Address City/State/[place] [address] (ABNORMAL) Prothrombin Time (07/12/2017 [...] [place] STACIE HEMATOLOGY ORDERABLES Performing Organization Address City/[facility]/[place] [address] Potassium (07/12/2017 4:11 AM EST) athologist Signature Potassium 3.8 3.5 - 5.0 [facility] mmol/L [facility] Comment: [...] Agency Comment Spec In Lab Makayla Dejesusfield [employer] CHEMISTRY ORDERABLES Performing Organization Address City/[facility]/[place] [address] POCT Glucose (07/12/2017 4:10 AM EST) athologist Signature POC Glucose 90 65 - 199 [facility] [...] Address City/State/ZIP Code Phon e Number [address] POCT Glucose (07/11/2017 11:57 PM EST) athologist Signature POC Glucose 98 65 - 199 [facility] [...] Address City/State/ZIP Code Phon e Number [address] POCT Glucose (07/11/2017 8:32 PM EST) athologist Signature POC Glucose 146 65 - 199 [facility]dL [facility] [...] Address City/State/[place] [address] XR Chest PA & [...] e xtubated, left chest tube removed, and Yoder-Suzi catheter removed since the study. Atelectasis at [...] e xtubated, left chest tube removed, and Yoder-Suzi catheter removed since the study. Atelectasis at [...] (H) 65 - 199 [place] mg/dL [facility] [...] Address City/State/ZIP Code Phon e Number [address] POCT Glucose (07/11/2017 11:55 AM EST) athologist Signature POC Glucose 176 65 - 199 [place] ZHAORY[place] mg/dL [facility] [...] Address City/[facility]/ZIP Code Phon e Number [address] POCT Glucose (07/11/2017 7:53 AM EST) athologist Signature POC Glucose 189 65 - 199 [place] RYAN mg/dL [facility] [...] Address City/State/[place] [address] POCT Glucose (07/11/2017 4:22 AM EST) athologist Signature POC Glucose 151 65 - 199 [place] RYAN mg/dL [facility] [...] Address City/[facility]/[place] [address] Potassium (07/11/2017 2:20 AM EST) athologist Signature Potassium 4.5 3.5 - 5.0 [facility] mmol/L [facility] [...] Address City/[facility]/[place] [address] POCT Glucose (07/11/2017 12:17 AM EST) athologist Signature POC Glucose 162 65 - 199 [place] RYAN mg/dL [facility] [...] Address City/[facility]/[place] [address] POCT Glucose (07/10/2017 8:47 PM EST) athologist Signature POC Glucose 191 65 - 199 [place] RYAN mg/dL [facility] [...] Address City/State/[place] [address] POCT Glucose (07/10/2017 4:06 PM EST) athologist Signature POC Glucose 131 65 - 199 [place] RYAN mg/dL [facility] [...] Address City/[facility]/[place] [address] POCT Glucose (07/10/2017 3:08 PM EST) athologist Signature POC Glucose 151 65 - 199 [place] RYAN mg/dL [facility] [...] Address City/State/[place] [address] POCT Glucose (07/10/2017 2:25 PM EST) athologist Signature POC Glucose 146 65 - 199 [facility] RYAN mg/dL [facility] [...] Address City/State/ZIP Code Phon e Number [address] POCT Glucose (07/10/2017 1:23 PM EST) P athologist Signature POC Glucose 166 65 - 199 [place] ZHAORYAN mg/dL [facility] [...] Address City/[facility]/ZIP Code Phon e Number [address] POCT Glucose (07/10/2017 11:52 AM EST) P athologist Signature POC Glucose 157 65 - 199 [place] RYAN mg/dL [facility] [...] Address City/[facility]/[place] [address] POCT Glucose (07/10/2017 11:01 AM EST) P athologist Signature POC Glucose 158 65 - 199 [place] RYAN mg/dL [facility] [...] Address City/State/ZIP Code Phon e Number [address] POCT Glucose (07/10/2017 9:54 AM EST) athologist Signature POC Glucose 160 65 - 199 [place] ZHAORY[place] mg/dL [facility] [...] Address City/[facility]/ZIP Code Phon e Number [address] POCT Glucose (07/10/2017 8:58 AM EST) athologist Signature POC Glucose 183 65 - 199 [place] RYAN mg/dL [facility] [...] Address City/State/ZIP Code Phon e Number [address] POCT Glucose (07/10/2017 8:01 AM EST) athologist Signature POC Glucose 173 65 - 199 [facility] R[facility] mg/dL [facility] [...] Address City/State/ZIP Code Phon e Number [address] POCT Glucose (07/10/2017 7:05 AM EST) athologist Signature POC Glucose 166 65 - 199 [place] RYAN mg/dL [facility] [...] Address City/State/ZIP Code Phon e Number [address] POCT Glucose (07/10/2017 6:00 AM EST) athologist Signature POC Glucose 162 65 - 199 [facility] mg/dL [facility] [...] Address City/State/[place] [address] (ABNORMAL) Differential, Automated (07/10/2017 4:28 AM EST) [facility] gist Method Time Signature Neutrophils % 87.9 % [facility] Neutr Abs (ANC) 10.70 (H) 1.70 - [facility] 6.10 [facility] x10(3)/[facility] L LABORATORY Lymphocytes % 3.9 % [facility] Lymphocytes Abs 0.5 (L) 0.9 - 3.2 [facility] x10(3)/[facility] LABORATORY Monocytes % 7.0 % [facility] Monocyte Abs 0.8 0.3 - 0.9 [facility] x10(3)/[facility] LABORATORY Eosinophils % 0.3 % [facility] Eosinophils Abs 0.0 0.0 - 0.4 [facility] x10(3)/[facility] LABORATORY Basophils % 0.2 % [facility] Basophils Abs 0.0 0.0 - 0.1 [facility] x10(3)/[facility] LABORATORY Immature Gran % 0.70 % [facility] [...] Organization Address City/State/ZIP [place] [address] (ABNORMAL) Hemogram (07/10/2017 4:28 AM EST) Analysis Performed At Patho logist Time Signature WBC 12.2 (H) 4.0 - 9.5 [facility] x10(3)/[facility] LABORATORY RBC 3.31 (L) 4.58 - [facility] 5.54 [facility] x10(6)/[facility] LABORATORY Hemoglobin 9.8 (L) 13.7 - [facility] 16.5 gm/dL [facility] Hematocrit 30.0 (L) 40.5 - [facility] 48.5 % [facility] MCV 90.6 82.9 - [facility] 93.[address] [facility] MCH 29.6 27.5 - [facility] 32.1 pg [facility] MCHC 32.7 32.0 - [facility] 35.7 gm/dL [facility] Platelets 135 (L) 145 - 357 [facility] x10(3)/[facility] LABORATORY RDWSD 50.8 (H) 36.0 - [facility] 45.0 [facility] LABORATORY RDWCV 15.4 (H) 11.4 - [facility] 13.8 % [facility] MPV 10.0 7.6 - 12.9 [facility] LABORATORY nRBC % Auto 0.0 % [facility] nRBC Abs Auto 0.000 0.000 - [facility] 0.000 [facility] x10(3)/[facility] LABORATORY Specimen Anatomical Collection Method Collection Time Receive d Time (Source) Location / / Volume Laterality Blood specimen 07/10/2017 4:28 AM 017 4:36 (specimen) EST AM EST Resulting Agency Comment Spec In Lab Yuan Webber MD HEMATOLOGY ORDERABLES Performing Organization Address City/State/ZIP [place] [address] (ABNORMAL) Basic Metabolic Panel (non-fasting) (07/10/2017 4:28 AM EST) athologist Signature Glucose Lvl 178 65 - 199 [facility] mg/dL [facility] Comment: [...] or in patients with acute kidney failure. [email or web address]/DHnkdep [email or web address]/DHMCnkf Specimen Anatomical Collection Method Collection Time Receive d Time (Source) Location / / Volume Laterality Blood specimen 07/10/2017 4:28 AM 017 4:36 (specimen) EST AM EST Resulting Agency Comment Spec In Lab Yuan Webber MD CHEMISTRY ORDERABLES Performing Organization Address City/[facility]/ZIP Code Phon e Number [address] POCT Glucose (07/10/2017 4:26 AM EST) P athologist Signature POC Glucose 176 65 - 199 [facility] mg/dL [facility] Comment: [...] Address City/State/[place] [address] (ABNORMAL) POCT Glucose (07/10/2017 3:06 AM EST) P athologist Signature POC Glucose 204 (H) 65 - 199 [facility] mg[facility]dL [facility] [...] Address City/[facility]/[place] [address] (ABNORMAL) POCT Glucose (07/10/2017 2:10 AM EST) P athologist Signature POC Glucose 203 (H) 65 - 199 [place] mg/dL [facility] [...] Address City/[facility]/[place] [address] POCT Glucose (07/10/2017 1:09 AM EST) P athologist Signature POC Glucose 196 65 - 199 [place]HAORY[place] mg/dL [facility] [...] Address City/State/[place] [address] POCT Glucose (07/10/2017 12:10 AM EST) P athologist Signature POC Glucose 173 65 - 199 [place] RYAN mg/dL [facility] [...] Address City/State/ZIP Code Phon e Number [address] POCT Glucose (07/09/2017 11:01 PM EST) athologist Signature POC Glucose 140 65 - 199 [place] RY[place] mg/dL [facility] [...] Address City/[facility]/ZIP Code Phon e Number [address] POCT Glucose (07/09/2017 10:05 PM EST) athologist Signature POC Glucose 144 65 - 199 [place] mg/dL [facility] [...] Address City/State/[place] [address] POCT Glucose (07/09/2017 9:31 PM EST) athologist Signature POC Glucose 121 65 - 199 [place] RYAN mg/dL [facility]ORY [...] Address City/State/ZIP Code Phon e Number [address] POCT Glucose (07/09/2017 9:03 PM EST) athologist Signature POC Glucose 98 65 - 199 [place] mg/dL [facility]ORY [...] Address City/State/ZIP Code Phon e Number [address] POCT Glucose (07/09/2017 8:09 PM EST) athologist Signature POC Glucose 117 65 - 199 [place] RY[place] mg/dL [facility] [...] Address City/State/ZIP Code Phon e Number [address] POCT Glucose (07/09/2017 5:40 PM EST) athologist Signature POC Glucose 155 65 - 199 [facility] mg/dL [facility] [...] Address City/State/ZIP Code Phon e Number [address] POCT Glucose (07/09/2017 4:24 PM EST) athologist Signature POC Glucose 164 65 - 199 [place] RY[place] mg/dL [facility] [...] Address City/[facility]/ZIP Code Phon e Number [address] POCT Glucose (07/09/2017 3:19 PM EST) athologist Signature POC Glucose 166 65 - 199 [place] ZHAORY[place] mg/dL [facility] [...] Address City/[facility]/[place] [address] POCT Glucose (07/09/2017 2:26 PM EST) athologist Signature POC Glucose 179 65 - 199 [place] RYAN mg/dL [facility] [...] Organization Address City/State/ZIP [place] [address] (ABNORMAL) POCT Glucose (07/09/2017 1:29 PM EST) P athologist Signature POC Glucose 210 (H) 65 - 199 [facility] mg/dL [facility] [...] Organization Address City/State/ZIP [place] [address] POCT Glucose (07/09/2017 12:20 PM EST) athologist Signature POC Glucose 172 65 - 199 [facility] mg/dL [facility] [...] Organization Address City/State/ZIP [place] [address] POCT Glucose (07/09/2017 11:24 AM EST) athologist Signature POC Glucose 156 65 - 199 [facility] mg/dL [facility] [...] Organization Address City/State/ZIP [place] [address] POCT Glucose (07/09/2017 11:11 AM EST) athologist Signature POC Glucose 172 65 - 199 [place]HA[place] mg/dL [facility]OR[facility]ORY [...] Address City/State/ZIP Code Phon e Number [address] POCT Glucose (07/09/2017 10:08 AM EST) athologist Signature POC Glucose 176 65 - 199 [place]ORY[place] mg/dL [facility] LABORATORY [...] Address City/State/ZIP Code Phon e Number [address] POCT Glucose (07/09/2017 8:02 AM EST) athologist Signature POC Glucose 178 65 - 199 [place]HAORY[place] mg/dL [facility] LABOR[facility]ORY [...] Address City/State/[place] [address] (ABNORMAL) BLOOD GAS 2 ARTERIAL (07/09/2017 5:37 AM EST) Analysis Performed At Patho logist Time Signature pH Art 7.36 7.35 - [facility] [address] [facility] pCO2 Art 38 35 - 45 [facility] mmHg [facility] pO2 Art 79 (L) 85 - 104 [facility] LABORATORY HCO3 Art 20.9 20.0 - [facility] 26.0 [facility] mmol/L [facility] LABORATORY BE Art -4.6 (L) -3.0 - 3.0 [facility] mmol/L [facility] Hgb Blood Gas 10.5 (L) 13.7 - [facility] 16.5 gm/dL [facility] O2HB Art 93.8 (L) 94.0 - [facility] 97.0 % [facility] COHB Art 0.3 % [facility] FIO2 Art 40 % [facility] LABORATORY PF Ratio Art 198 [facility] LABOR[facility]ORY Specimen Anatomical Collection Method Collection Time Receive d Time (Source) Location / / Volume Laterality Blood specimen 07/09/2017 5:37 AM 017 5:37 (specimen) EST AM EST Yuan Webber MD CHEMISTRY ORDERABLES Performing Organization Address City/[facility]/ZIP Code Phon e Number [address] POCT Glucose (07/09/2017 3:27 AM EST) athologist Signature POC Glucose 192 65 - 199 [facility] mg/dL [facility] Comment: [...] Address City/State/[place] [address] (ABNORMAL) Basic Metabolic Panel (non-fasting) (07/09/2017 2:30 AM EST) athologist Signature Glucose Lvl 179 65 - 199 [facility] mg/dL [facility] Comment: [...] or in patients with acute kidney failure. [email or web address]/DHnkdep http://[employer]/DHMCnkf Specimen Anatomical Collection Method Collection Time Receive d Time (Source) Location / / Volume Laterality Blood specimen Venous Draw / 07/09/2017 2:30 AM 2016 2:42 (specimen) Unknown EST AM EST Resulting Agency Comment Spec In Lab Yuan Webber MD CHEMISTRY ORDERABLES Performing Organization Address City/[facility] [place] [address] (ABNORMAL) Potassium (07/09/2017 2:30 AM EST) P athologist Signature Potassium 5.1 (H) 3.5 - 5.0 [facility] mmol/L [facility] Comment: [...] Comment Spec In Lab Yuan Webebr MD CHEMISTRY ORDERABLES Performing Organization Address City/[facility]/ZIP [facility] [place] [address] (ABNORMAL) Hemogram (07/09/2017 2:30 AM EST) Analysis Performed At Patho logist Time Signature WBC 12.5 (H) 4.0 - 9.5 [facility] x[facility](3)/[facility] LABORATORY RBC 3.38 (L) 4.58 - [facility] 5.54 [facility] x10(6)/[facility] LABORATORY Hemoglobin 10.1 (L) 13.7 - [place] [facility] 16.5 gm/dL [facility] Hematocrit 30.3 (L) 40.5 - [facility] 48.5 % [facility] MCV 89.6 82.9 - [facility] 93.1 [facility] LABORATORY MCH 29.9 27.5 - [place] [facility] 32.[address] [facility] MCHC 33.3 32.0 - [place] [facility] 35.7 gm/dL [facility] Platelets 127 (L) 145 - 357 [facility] [facility] x10(3)/[facility] LABORATORY RDWSD 49.3 (H) 36.0 - [facility] 45.0 [facility] LABORATORY RDWCV 15.2 (H) 11.4 - [facility] RYAN 13.8 % [facility] LABORATORY MPV 9.9 7.6 - 12.9 [facility] LABORATORY nRBC % Auto 0.0 % [facility] LABORATORY nRBC Abs Auto 0.000 0.000 - [place] ZHAORYAN 0.000 [facility] x10(3)/[facility] LABORATORY Specimen Anatomical Collection Method Collection Time Receive d Time (Source) Location / / Volume Laterality Blood specimen 07/09/2017 2:30 AM 017 2:41 (specimen) EST AM EST Resulting Agency Comment Spec In Lab Yuan Webber MD HEMATOLOGY ORDERABLES Performing Organization Address City/State/ZIP [place] [address] POCT Glucose (07/09/2017 2:10 AM EST) P athologist Signature POC Glucose 169 65 - 199 [facility] mg/dL [facility] LABORATORY Comment: [...] Address City/State/ZIP Code Phon e Number [address] POCT Glucose (07/09/2017 1:01 AM EST) P athologist Signature POC Glucose 173 65 - 199 [place] DAVIS mg/dL [facility] LABORATORY Comment: [...] Address City/[facility]/[place] [address] Blood culture (07/09/2017 12:40 AM EST) [facility] gist Method Time Signature Blood Culture No growth [place] DAVIS at [address] [facility] [...] City/[facility]/ZIP [place] [address] Blood culture (07/09/2017 12:30 AM EST) Patholo gist Method Time Signature Blood Culture No growth [place] DAVIS at [address] [facility] [...] City/[facility]/ZIP [place] [address] (ABNORMAL) Urinalysis Microscopic Exam (07/09/2017 12:05 AM EST) Analysis Performed At Patho logist Time Signature RBC UA 32 (H) 0 - 3 /HPF [facility] LABORATORY WBC UA 5 (H) 0 - 3 /HPF [facility] LABORATORY Squam Epith UA <1 <=4 /HPF [facility] LABORATORY Hyaline Cast 17 (H) 0 - 2 /LPF [facility] LABORATORY Gran Cast UA 1 (H) <=0 /LPF [facility] LABORATORY Uric Ac Bianca Rare (A) None /HPF [facility] LABORATORY Specimen (Source) Anatomical Collection Method Collection Time Re ceived Time Location / / Volume Laterality Urine specimen 07/09/2017 12:05 7 obtained via AM EST 12:39 AM EST indwelling urinary catheter (specimen) Resulting Agency Comment Spec In Lab Yuan Webber MD URINE ORDERABLES Performing Organization Address City/State/[place] [address] (ABNORMAL) Urinalysis with reflex Culture (07/09/2017 12:05 AM EST) Patholo gist Method Time Signature Glucose UA Negative Negative [facility] mg/dL [facility] LABORATORY Protein UA 30 (A) Negative [facility] mg/dL [facility] LABORATORY Bilirubin UA Negative Negative [facility] mg/dL [facility] LABORATORY Comment: [...] [facility] Leukocytes UA Negative Negative [facility] LABORATORY Appearance UA Hazy (A) Clear [facility] LABORATORY Spec [place] UA 1.025 1.002 - 1.030 [facility] LABORATORY Color UA Yellow Yellow [facility] [...] Address City/[facility]/ZIP Code Phon e Number [address] POCT Glucose (07/08/2017 11:01 PM EST) athologist Signature POC Glucose 191 65 - 199 [facility] mg/dL [facility] LABORATORY Comment: [...] Address City/[facility]/ZIP Code Phon e Number [address] POCT Glucose (07/08/2017 10:04 PM EST) athologist Signature POC Glucose 198 65 - 199 [facility] mg/dL [facility] LABORATORY [...] Address City/State/[place] [address] Prepare Albumin 5% in 250 mL (07/08/2017 8:49 PM EST) athologist Signature Dispensed? Yes [facility] LABORATORY Specimen Anatomical Collection Method Collection Time Receive d Time (Source) Location / / Volume Laterality Blood specimen No Charge / 07/08/2017 8:49 PM 017 8:51 (specimen) Unknown EST PM EST Resulting Agency Comment Spec In Lab [place] [facility] ORDERABLES Performing Organization Address City/State/[place] [address] POCT Glucose (07/08/2017 8:28 PM EST) athologist Signature POC Glucose 195 65 - 199 [facility] mg/dL [facility] LABORATORY [...] Address City/State/[place] [address] (ABNORMAL) POCT Glucose (07/08/2017 7:13 PM EST) athologist Signature POC Glucose 220 (H) 65 - 199 [facility] mg/dL [facility] LABORATORY [...] Address City/State/[place] [address] POCT Glucose (07/08/2017 5:04 PM EST) athologist Signature POC Glucose 147 65 - 199 [facility] mg/dL [facility] LABORATORY Comment: [...] Organization Address City/State/ZIP [place] [address] (ABNORMAL) BLOOD GAS 2 ARTERIAL (07/08/2017 4:13 PM EST) Analysis Performed At Patho logist Time Signature pH Art 7.38 7.35 - [facility] 7.[address] [facility] LABORATORY pCO2 Art 36 35 - 45 [facility] mmHg [facility] LABORATORY pO2 Art 91 85 - 104 [facility] LABORATORY HCO3 Art 20.9 20.0 - [facility] 26.0 [facility] mmol/L [facility] LABORATORY BE Art -4.2 (L) -3.0 - 3.0 [facility] mmol/L [facility] LABORATORY Hgb Blood Gas 11.7 (L) 13.7 - [facility] 16.5 gm/dL [facility] LABORATORY O2HB Art 95.1 94.0 - [facility] 97.0 % [facility] LABORATORY COHB Art 0.6 % [facility] FIO2 Art 40 % [facility] LABORATORY PF Ratio Art 228 [facility] LABORATORY Specimen Anatomical Collection Method Collection Time Receive d Time (Source) Location / / Volume Laterality Blood specimen 07/08/2017 4:13 PM 017 4:13 (specimen) EST PM EST Yuan Webber MD CHEMISTRY ORDERABLES Performing Organization Address City/[facility]/ZIP [facility] [place] [address] POCT Glucose (07/08/2017 4:01 PM EST) P athologist Signature POC Glucose 148 65 - 199 [facility] mg/dL [facility] LABORATORY Comment: [...] Address City/[facility]/[place] [address] POCT Glucose (07/08/2017 3:21 PM EST) P athologist Signature POC Glucose 118 65 - 199 [facility] mg/dL [facility] LABORATORY Comment: [...] Address City/State/ZIP Code Phon e Number [address] POCT Glucose (07/08/2017 2:01 PM EST) athologist Signature POC Glucose 129 65 - 199 [place] RYAN mg/dL [facility] LABORATORY [...] Address City/[facility]/ZIP Code Phon e Number [address] POCT Glucose (07/08/2017 11:53 AM EST) athologist Signature POC Glucose 156 65 - 199 [place] RYAN mg/dL [facility] LABORATORY [...] Address City/[facility]/ZIP Code Phon e Number [address] POCT Glucose (07/08/2017 11:04 AM EST) athologist Signature POC Glucose 181 65 - 199 [place] RYAN mg/dL [facility] LABORATORY [...] Address City/State/[place] [address] (ABNORMAL) POCT Glucose (07/08/2017 9:24 AM EST) athologist Signature POC Glucose 203 (H) 65 - 199 [facility] mg/dL [facility] LABORATORY Comment: [...] Address City/State/[place] [address] APTT (07/08/2017 8:40 AM EST) athologist Signature PTT 33 25 - 35 sec [facility] LABORATORY Comment: The recommended therapeutic range for fu ll dose, unfractionated heparin at [facility] is 80 ? 114 seconds. The use [...] Address City/[facility]/[place] [address] (ABNORMAL) Prothrombin Time (07/08/2017 [...] Address City/State/[place] [address] (ABNORMAL) POCT Glucose (07/08/2017 7:38 AM EST) athologist Signature POC Glucose 232 (H) 65 - 199 [facility] mg/dL [facility] LABORATORY [...] Address City/[facility]/[place] [address] (ABNORMAL) POCT Glucose (07/08/2017 7:07 AM EST) athologist Signature POC Glucose 234 (H) 65 - 199 [facility] mg/dL [facility] LABORATORY [...] Address City/[facility]/[place] [address] (ABNORMAL) POCT Glucose (07/08/2017 6:04 AM EST) athologist Signature POC Glucose 225 (H) 65 - 199 [facility] mg/dL [facility] LABORATORY [...] Address City/State/[place] [address] (ABNORMAL) POCT Glucose (07/08/2017 5:31 AM EST) athologist Signature POC Glucose 216 (H) 65 - 199 [facility] mg/dL [facility] LABORATORY [...] Address City/State/[place] [address] (ABNORMAL) POCT Glucose (07/08/2017 4:52 AM EST) athologist Signature POC Glucose 257 (H) 65 - 199 [facility] mg/dL [facility] LABORATORY [...] Address City/State/[place] [address] (ABNORMAL) BLOOD GAS 2 ARTERIAL (07/08/2017 4:04 AM EST) Analysis Performed At Patho logist Time Signature pH Art 7.30 (L) 7.35 - [facility] [address] [facility] LABORATORY pCO2 Art 41 35 - 45 [facility] mmHg [facility] LABORATORY pO2 Art 83 (L) 85 - 104 [facility] LABORATORY HCO3 Art 19.6 (L) 20.0 - [facility] 26.0 [facility] mmol/L [facility] LABORATORY BE Art -6.8 (L) -3.0 - 3.0 [facility] mmol/L [facility] LABORATORY Hgb Blood Gas 12.2 (L) 13.7 - [facility] 16.5 gm/dL [facility] O2HB Art 93.5 (L) 94.0 - [facility] 97.0 % [facility] COHB Art 0.4 % [facility] [...] by instrument designer. FIO2 Art 40 % [facility] LABORATORY PF Ratio Art 208 [facility] LABORATORY Specimen Anatomical Collection Method Collection Time Receive d Time (Source) Location / / Volume Laterality Blood specimen 07/08/2017 4:04 AM 017 4:04 (specimen) EST AM EST Daphne Shahid MD CHEMISTRY ORDERABLES Performing Organization Address City/State/ZIP Code Phon e Number [address] Scan, Peripheral Blood (07/08/2017 [...] Address City/[facility]/ZIP Code Phon e Number [address] (ABNORMAL) Differential, Automated (07/08/2017 4:00 AM EST) Patholo gist Method Time Signature Neutrophils % 85.4 % [facility] LABORATORY Neutr Abs (ANC) 16.07 (H) 1.70 - [facility] 6.10 [facility] x10(3)/[facility] L LABORATORY Lymphocytes % 3.5 % [facility] LABORATORY Lymphocytes Abs 0.6 (L) 0.9 - 3.2 [facility] x10(3)/[facility] LABORATORY Monocytes % 10.4 % [facility] LABORATORY Monocyte Abs 2.0 (H) 0.3 - 0.9 [facility] x10(3)/[facility] LABORATORY Eosinophils % 0.0 % [facility] LABORATORY Eosinophils Abs 0.0 0.0 - 0.4 [facility] x10(3)/[facility] LABORATORY Basophils % 0.1 % [facility] LABORATORY Basophils Abs 0.0 0.0 - 0.1 [facility] x10(3)/[facility] LABORATORY Immature Gran % 0.60 % [facility] [...] Abs 0.12 (H) 0.00 - 0.04 x10(3)/[facility] LABORATORY Specimen Anatomical Collection Method Collection Time Receive d Time (Source) Location / / Volume Laterality Blood specimen 07/08/2017 4:00 AM 017 4:09 (specimen) EST AM EST Resulting Agency Comment Spec In Lab Yuan Webber MD HEMATOLOGY ORDERABLES Performing Organization Address City/State/ZIP [place] [address] (ABNORMAL) Hemogram (07/08/2017 4:00 AM EST) Analysis Performed At Patho logist Time Signature WBC 18.8 (H) 4.0 - 9.5 [facility] x10(3)/[facility] LABORATORY RBC 4.00 (L) 4.58 - [facility] 5.54 [facility] x10(6)/[facility] LABORATORY Hemoglobin 11.9 (L) 13.7 - [facility] 16.5 gm/dL [facility] LABORATORY Hematocrit 35.9 (L) 40.5 - [facility] 48.5 % [facility] LABORATORY MCV 89.8 82.9 - [facility] 93.1 [facility] LABORATORY MCH 29.8 27.5 - [facility] R[facility]AN 32.[address] [facility] LABORATORY MCHC 33.1 32.0 - [facility] 35.7 gm/dL [facility] LABORATORY Platelets 232 145 - 357 [facility] x10(3)/[facility] LABORATORY RDWSD 47.6 (H) 36.0 - [facility] RYAN 45.0 [facility] RDWCV 14.5 (H) 11.4 - [facility] RYAN 13.8 % [facility] LABORATORY MPV 9.5 7.6 - 12.9 [facility] LABORATORY nRBC % Auto 0.0 % [facility] LABORATORY nRBC Abs Auto 0.000 0.000 - [facility] 0.000 [facility] x10(3)/[facility] LABORATORY Specimen Anatomical Collection Method Collection Time Receive d Time (Source) Location / / Volume Laterality Blood specimen 07/08/2017 4:00 AM 017 4:09 (specimen) EST AM EST Resulting Agency Comment Spec In Lab Yuan Webber MD HEMATOLOGY ORDERABLES Performing Organization Address City/[facility]/[place] [address] (ABNORMAL) Electrolytes panel (07/08/2017 4:00 AM EST) athologist Signature Sodium 139 135 - 145 [facility] mmol/L [facility] LABORATORY Potassium 4.7 3.5 - 5.0 [facility] mmol/L [facility] LABORATORY Comment: [...] Address City/[facility]/[place] [address] (ABNORMAL) Cardiac Enzymes (LEB/CGP) (07/08/2017 4:00 AM EST) P athologist Signature Troponin-T 1.88 (H) 0.00 - [facility] 0.00 ng/mL [facility] LABORATORY [...] additional sample may be indicated. Reference: Third [place] Definition of Myocardial Infarction. Journal of the [place] [employer] 2012;60:1581-98 CK, Total 413 (H) 0 - 200 unit/L [facility] LABORATORY Comment: result rechecked-K Specimen Anatomical Collection Method Collection Time Receive d Time (Source) Location / / Volume Laterality Blood specimen 07/08/2017 4:00 AM 017 4:09 (specimen) EST AM EST Resulting Agency Comment Spec In Lab Yuan Webber MD CHEMISTRY ORDERABLES Performing Organization Address City/State/ZIP [place] [address] (ABNORMAL) Glucose, fasting (07/08/2017 4:00 AM EST) athologist Signature Glucose 287 (H) 65 - 99 [facility] Fasting mg/dL [facility] LABORATORY [...] of Diabetes Mellitus, Position Statement from the [place] [employer]. ??Diabete s Care, Volume 33, Supplement 1, Jul 2009 Specimen Anatomical Collection Method Collection Time Receive d Time (Source) Location / / Volume Laterality Blood specimen 07/08/2017 4:00 AM 017 4:09 (specimen) EST AM EST Resulting Agency Comment Spec In Lab Yuan Webber MD CHEMISTRY ORDERABLES Performing Organization Address City/[facility] Code Phon e Number [address] (ABNORMAL) Creatinine (07/08/2017 4:00 AM EST) Analysis Performed At Patho logist Time Signature Creatinine 1.55 (H) 0.80 - [place] RYAN 1.50 mg/dL [facility] LABORATORY Estimated GFR 44 (L) >=60 [facility] LABORATORY Comment: The reported eGFR should be multiplied b y 1.2 for patients. The MDRD is not an appropriate measure o f renal function for patients with body mass extremes or in patients with acute kidney failure. http://[employer]/DHnkdep http://[employer]/DHMCnkf Specimen Anatomical Collection Method Collection Time Receive d Time (Source) Location / / Volume Laterality Blood specimen 07/08/2017 4:00 AM 017 4:09 (specimen) EST AM EST Resulting Agency Comment Spec In Lab Yuan Webber MD CHEMISTRY ORDERABLES Performing Organization Address City/[facility]/ZIP Code Phon e Number [address] BUN (07/08/2017 4:00 AM EST) P athologist Signature BUN 16 10 - 20 [place] RYAN mg/dL [facility] LABORATORY Specimen Anatomical Collection Method Collection Time Receive d Time (Source) Location / / Volume Laterality Blood specimen 07/08/2017 4:00 AM 017 4:09 (specimen) EST AM EST Resulting Agency Comment Spec In Lab Yuan Webber MD CHEMISTRY ORDERABLES Performing Organization Address City/[facility]/ZIP Code Phon e Number [address] (ABNORMAL) POCT Glucose (07/08/2017 3:00 AM EST) P athologist Signature POC Glucose 273 (H) 65 - 199 [facility] mg/dL [facility] LABORATORY [...] Address City/[facility]/[place] [address] (ABNORMAL) POCT Glucose (07/08/2017 1:57 AM EST) P athologist Signature POC Glucose 288 (H) 65 - 199 [facility] mg/dL [facility] LABORATORY [...] Address City/[facility]/[place] [address] (ABNORMAL) POCT Glucose (07/08/2017 1:01 AM EST) P athologist Signature POC Glucose 315 (H) 65 - 199 [facility] mg/dL [facility] LABORATORY [...] Organization Address City/State/ZIP [place] [address] (ABNORMAL) BLOOD GAS 2 ARTERIAL (07/08/2017 12:09 AM EST) athologist Signature pH Art 7.26 7.35 - [facility] (Critical) 7.[address] [facility] LABORATORY Comment: Noted by instrument designer. [...] by instrument designer. FIO2 Art 40 % [facility] LABORATORY PF Ratio Art 240 [facility] LABORATORY Specimen Anatomical Collection Method Collection Time Receive d Time (Source) Location / / Volume Laterality Blood specimen Arterial Draw / 07/08/2017 12:09 2016 5:31 (specimen) Unknown AM EST AM EST Resulting Agency Comment Spec In Lab Samy Maldonado MD CHEMISTRY ORDERABLES Performing Organization Address City/[facility]/[place] [address] (ABNORMAL) POCT Glucose (07/07/2017 10:56 PM EST) P athologist Signature POC Glucose 292 (H) 65 - 199 [facility] mg/dL [facility] LABORATORY Comment: [...] Address City/State/[place] [address] (ABNORMAL) BLOOD GAS 2 ARTERIAL (07/07/2017 10:04 PM EST) P athologist Signature pH Art 7.22 7.35 - [facility] (Critical) 7.[address] [facility] LABORATORY Comment: Noted by instrument designer. [...] by instrument designer. FIO2 Art 40 % [facility] LABORATORY PF Ratio Art 235 [facility] LABORATORY Specimen Anatomical Collection Method Collection Time Receive d Time (Source) Location / / Volume Laterality Blood specimen 07/07/2017 10:04 7 (specimen) PM EST 10:04 PM EST Daphne Shahid MD CHEMISTRY ORDERABLES Performing Organization Address City/State/ZIP [place] [address] (ABNORMAL) Hemoglobin (07/07/2017 10:00 PM EST) athologist Signature Hemoglobin 12.8 (L) 13.7 - [place] [facility] 16.5 gm/dL [facility] LABORATORY Specimen Anatomical Collection Method Collection Time Receive d Time (Source) Location / / Volume Laterality Blood specimen 07/07/2017 10:00 7 (specimen) PM EST 10:13 PM EST Resulting Agency Comment Spec In Lab Yuan Webber MD HEMATOLOGY ORDERABLES Performing Organization Address City/[facility] Phon e Number [address] (ABNORMAL) Potassium (07/07/2017 10:00 PM EST) athologist [facility] Potassium 3.4 (L) 3.5 - 5.0 [facility] mmol/L [facility] LABORATORY Comment: [...] Webber MD CHEMISTRY ORDERABLES Performing Organization Address [facility] [place] [address] (ABNORMAL) POCT Glucose (07/07/2017 8:49 PM EST) athologist Signature POC Glucose 241 (H) 65 - 199 [facility] mg/dL [facility] LABORATORY [...] Address City/[facility]/ZIP Code Phon e Number [address] Prepare Albumin 5% in [...] Address City/[facility]/ZIP Code Phon e Number [address] EKG 12 Lead (07/07/2017 7:17 PM EST) Component Value Ref Range Test Analysis Performed Pathologis t Method Time At Signature Ventricular rate 75 BPM MUSE SYSTEM Atrial Rate 75 BPM MUSE SYSTEM P-R Interval 168 ms MUSE SYSTEM QRS Duration 104 ms MUSE SYSTEM Q-T Interval 462 ms MUSE SYSTEM QTC Calculated 515 ms MUSE SYSTEM (Bezet) Calculated P Wisner 52 degrees MUSE SYSTEM Calculated R Wisner -40 degrees MUSE SYSTEM Calculated T Wisner 39 degrees MUSE SYSTEM INTERPRETATION Normal sinus [...] [facility] (Critical) 7.[address] [facility] LABORATORY Comment: Noted by instrument designer. [...] by instrument designer. FIO2 Art 100 % [facility] LABORATORY PF Ratio Art 238 [facility] LABORATORY Specimen Anatomical Collection Method Collection Time Receive d Time (Source) Location / / Volume Laterality Blood specimen 07/07/2017 6:57 PM 017 6:57 (specimen) EST PM EST Daphne Shahid MD CHEMISTRY ORDERABLES Performing Organization Address City/State/ZIP [place] [address] (ABNORMAL) BLOOD GAS 2 ARTERIAL (07/07/2017 5:31 PM EST) athologist Signature pH Art 7.29 7.35 - [facility] HOSPITAL (Critical) [address] [facility] Comment: Noted by instrument designer. [...] Address City/[facility]/[place] [address] Fibrinogen (07/07/2017 5:30 PM EST) athologist Signature Fibrinogen 224 180 - 510 [facility] mg/dL [facility] Comment: [...] Address City/[facility]/ZIP Code Phon e Number [address] APTT (07/07/2017 5:30 PM EST) athologist Signature PTT 30 25 - 35 sec [facility] Comment: The recommended therapeutic range for fu ll dose, unfractionated heparin at [facility] is 80 ? 114 seconds. The use [...] HEMATOLOGY ORDERABLES Performing Organization Address City/[facility]/ZIP [facility] Phon e Number [address] (ABNORMAL) Prothrombin Time (07/07/2017 5:30 PM EST) P athologist Signature PT 19.0 (H) 11.8 - 14.0 [facility] [...] Organization Address City/State/ZIP Code Phon e Number [place] [id number] HOSPITAL LAB[address]ORY Drive (ABNORMAL) Hemogram (07/07/2017 5:30 PM EST) P athologist Signature WBC 19.6 (H) 4.0 - 9.5 [facility] x10(3)/[facility] LABORATORY RBC 3.08 (L) 4.58 - [facility] 5.54 [facility] x10(6)/[facility] LABORATORY Hemoglobin 9.2 (L) 13.7 - [facility] 16.5 gm/dL [facility] Hematocrit 28.0 (L) 40.5 - [facility] 48.5 % [facility] [...] 145 - 357 x10(3)/[facility] LABORATORY RDWSD 46.5 (H) 36.0 - 45.0 fL [facility] RDWCV 14.1 (H) 11.4 - 13.8 % [facility] LABORATORY MPV 9.5 7.6 - 12.9 fL [facility] nRBC % Auto 0.0 % [facility] nRBC Abs Auto 0.000 0.000 - 0.000 x10(3)/[facility] LABORATORY Specimen Anatomical Collection Method Collection Time Receive d Time (Source) Location / / Volume Laterality Blood specimen 07/07/2017 5:30 PM 017 5:34 (specimen) EST PM EST Resulting Agency Comment Spec In Lab Yifan Perez MD HEMATOLOGY ORDERABLES Performing Organization Address [facility] Phon e Number [address] Prepare Platelets, Apheresis (07/07/2017 5:00 PM EST) athologist Signature Dispensed? Yes [facility] Specimen Anatomical Collection Method Collection Time Receive d Time (Source) Location / / Volume Laterality Blood specimen 07/07/2017 5:00 PM 017 4:58 (specimen) EST PM EST Daphne Shahid MD BLOOD BANK ORDERABLES Performing Organization Address [facility] Phon e Number [address] Platelet count (07/07/2017 4:55 PM EST) athologist Signature Platelets 177 145 - 357 [facility] x10(3)/[facility] LABORATORY Plat Immature 1.5 0.0 - 7.4 [facility] Comment: Limitation of the Immature Platelet Frac tion (IPF)-May be less reliable when the platelet count is less than 02b271/u L due to statistical imprecision. The IPF [...] in a decreased state of production. References: [employer] The Clinical Value of the Immature Platelet Fraction (IPF) in Cell Recovery Document Number 10-1143 12/2010 [employer] The Role of the Imm ature [...] Address City/[facility]/[place] [address] (ABNORMAL) Hemoglobin and Hematocrit, blood (07/07/2017 4:55 PM EST) P athologist Signature Hemoglobin 9.1 (L) 13.7 - 16.5 [facility] gm/dL [facility] Comment: [...] Address City/[facility]/[place] [address] (ABNORMAL) BLOOD GAS 2 ARTERIAL (07/07/2017 4:38 PM EST) Analysis Performed At Patho logist Time Signature pH Art 7.37 7.35 - [facility] [address] [facility] pCO2 Art 44 35 - 45 [facility] LABORATORY pO2 Art 322 (H) 85 - 104 [facility] HCO3 Art 24.9 20.0 - [facility] 26.0 [facility] mmol/L [facility] LABORATORY BE Art -0.4 -3.0 - 3.0 [facility] mmol/L [facility] Hgb Blood Gas 10.1 (L) 13.7 - [facility] 16.5 gm/dL [facility] O2HB Art 98.7 (H) 94.0 - [facility] 97.0 % [facility] COHB Art 0.1 % [facility] [...] [facility] Comment: Noted by instrument designer. [...] Organization Address City/State/ZIP [place] [address] (ABNORMAL) BLOOD GAS 2 VENOUS (07/07/2017 4:06 PM EST) Analysis Performed At Patho logist Time Signature pH Cody 7.31 (L) 7.32 - [facility] [address] [facility] pCO2 Cody 47 41 - 51 [facility] LABORATORY pO2 Cody 53 (H) 25 - 40 [facility] LABORATORY HCO3 Cody 22.7 mmol/L [facility] BE Cody -3.7 mmol/L [facility] Hgb Blood Gas 10.2 (L) 13.7 - [facility] 16.5 gm/dL [facility] O2HB Cody 81.0 % [facility] Comment: Noted by instrument designer. [...] [facility] BGas Source Venous [facility] Specimen Anatomical Collection Method Collection Time Receive d Time (Source) Location / / Volume Laterality Blood specimen 07/07/2017 4:06 PM 017 4:06 (specimen) EST PM EST Daphne Shahid MD CHEMISTRY ORDERABLES Performing Organization Address City/State/ZIP [place] [address] (ABNORMAL) BLOOD GAS 2 ARTERIAL (07/07/2017 4:05 PM EST) Analysis Performed At Patho logist Time Signature pH Art 7.36 7.35 - [facility] [address] [facility] pCO2 Art 40 35 - 45 [facility] LABORATORY pO2 Art 282 (H) 85 - 104 [facility] LABORATORY HCO3 Art 22.1 20.0 - [facility] 26.0 [facility] mmol/L [facility] LABORATORY BE Art -3.4 (L) -3.0 - 3.0 [facility] mmol/L [facility] Hgb Blood Gas 10.2 (L) 13.7 - [facility] 16.5 gm/dL [facility] O2HB Art 98.4 (H) 94.0 - [facility] 97.0 % [facility] COHB Art 0.3 % [facility] [...] [facility] Comment: Noted by instrument designer. [...] Organization Address City/State/ZIP [place] [address] (ABNORMAL) BLOOD GAS 2 ARTERIAL (07/07/2017 2:29 PM EST) Analysis Performed At Patho logist Time Signature pH Art 7.43 7.35 - [facility] [address] [facility] pCO2 Art 36 35 - 45 [facility] LABORATORY pO2 Art 221 (H) 85 - 104 [facility] LABORATORY HCO3 Art 23.2 20.0 - [facility] 26.0 [facility] mmol/L [facility] LABORATORY BE Art -1.2 -3.0 - 3.0 [facility] mmol/L [facility] Hgb Blood Gas 13.9 13.7 - [facility] 16.5 gm/dL [facility] O2HB Art 97.8 (H) 94.0 - [facility] 97.0 % [facility] COHB Art 1.1 % [facility] [...] MD CHEMISTRY ORDERABLES Performing Organization Address City/[facility] [place] [address] Prepare Coag Factors (Non-Hemophilia) (07/07/2017 1:25 PM EST) P athologist Signature Dispensed? Yes [facility] Specimen Anatomical Collection Method Collection Time Receive d Time (Source) Location / / Volume Laterality Blood specimen 07/07/2017 1:25 PM 017 1:21 (specimen) EST PM EST Daphne Shahid MD BLOOD BANK ORDERABLES Performing Organization Address City/[facility]/[place] [address] Prepare RBC (07/07/2017 1:10 PM EST) P athologist Signature Dispensed? Yes [facility] Specimen Anatomical Collection Method Collection Time Receive d Time (Source) Location / / Volume Laterality Blood specimen 07/07/2017 1:10 PM 017 1:05 (specimen) EST PM EST Daphne Shahid MD BLOOD BANK ORDERABLES Performing Organization Address City/[facility]/[place] [address] POCT Glucose (07/07/2017 11:56 AM EST) athologist Signature POC Glucose 188 65 - 199 [facility] mg/dL [facility] Comment: Supplemental ranges: <140 mg/dL before meals <180 mg/dL all other times of the day Specimen Anatomical Collection Method Collection Time Receive d Time (Source) Location / / Volume Laterality Blood specimen 07/07/2017 11:56 7 (specimen) AM EST 11:56 AM EST Daphne Shhaid MD POINT OF CARE TEST ORDERABLE S Performing Organization Address City/State/ZIP Code Phon e Number [address] POCT Glucose (07/07/2017 11:05 AM EST) athologist Signature POC Glucose 168 65 - 199 [facility] mg/dL [facility] [...] Address City/State/[place] [address] POCT Glucose (07/07/2017 10:02 AM EST) athologist Signature POC Glucose 191 65 - 199 [place] [facility] mg/dL [facility]OR[facility]ORY [...] Address City/State/[place] [address] POCT Glucose (07/07/2017 7:53 AM EST) athologist Signature POC Glucose 178 65 - 199 [facility] mg/dL [facility] [...] Address City/State/[place] [address] POCT Glucose (07/07/2017 7:03 AM EST) athologist Signature POC Glucose 188 65 - 199 [facility] mg/dL [facility] [...] Address City/State/[place] [address] (ABNORMAL) POCT Glucose (07/07/2017 6:17 AM EST) athologist Signature POC Glucose 207 (H) 65 - 199 [facility] mg/dL [facility] [...] Address City/State/[place] [address] Differential, Automated (07/07/2017 5:15 AM EST) P athologist Signature Neutrophils % 69.7 % [facility] Neutr Abs (ANC) 5.32 1.70 - [facility] 6.10 [facility] x10(3)/[facility] LABORATORY Lymphocytes % 16.3 % [facility] Lymphocytes Abs 1.2 0.9 - 3.2 [facility] x10(3)/[facility] LABORATORY Monocytes % 10.5 % [facility] Monocyte Abs 0.8 0.3 - 0.9 [facility] x10(3)/[facility] LABORATORY Eosinophils % 2.5 % [facility] Eosinophils Abs 0.2 0.0 - 0.4 [facility] x10(3)/[facility] LABORATORY Basophils % 0.7 % [facility] Basophils Abs 0.0 0.0 - 0.1 [facility] x10(3)/[facility] LABORATORY Immature Gran % 0.30 % [facility] Comment: Immature granulocytes(IG's)percentage an d absolute count will include metamyelocytes, myelocytes, and promyelo cytes. Blood smears from CBCs yielding IG's will be scanned manually for concor dance. If this scan disagrees with the automated IG or if promyelocytes are not ed, a manual differential will be performed. Meilsa Gran Abs 0.02 0.00 - 0.04 x10(3)/[facility] LABORATORY Specimen Anatomical Collection Method Collection Time Receive d Time (Source) Location / / Volume Laterality Blood specimen 07/07/2017 5:15 AM 017 5:34 (specimen) EST AM EST Resulting Agency Comment Spec In Lab Daphne Shahid MD HEMATOLOGY ORDERABLES Performing Organization Address City/State/ZIP [place] [address] (ABNORMAL) Hemogram (07/07/2017 5:15 AM EST) Analysis Performed At Patho logist Time Signature WBC 7.6 4.0 - 9.5 [facility] x10(3)/[facility] LABORATORY RBC 4.82 4.58 - [facility] 5.54 [facility] x10(6)/[facility] LABORATORY Hemoglobin 14.4 13.7 - [facility] 16.5 gm/dL [facility] Hematocrit 42.1 40.5 - [facility] 48.5 % [facility] MCV 87.3 82.9 - [facility] 93.1 [facility] LABORATORY MCH 29.9 27.5 - [facility] 32.[address] [facility] MCHC 34.2 32.0 - [facility] 35.7 gm/dL [facility] Platelets 188 145 - 357 [facility] x10(3)/[facility] LABORATORY RDWSD 45.1 (H) 36.0 - [facility] 45.0 [facility] LABORATORY RDWCV 14.3 (H) 11.4 - [facility] 13.8 % [facility] MPV 9.4 7.6 - 12.9 [facility] LABORATORY nRBC % Auto 0.0 % [facility] nRBC Abs Auto 0.000 0.000 - [facility] 0.000 [facility] x10(3)/[facility] LABORATORY Specimen Anatomical Collection Method Collection Time Receive d Time (Source) Location / / Volume Laterality Blood specimen 07/07/2017 5:15 AM 017 5:34 (specimen) EST AM EST Resulting Agency Comment Spec In Lab Daphne Shahid MD HEMATOLOGY ORDERABLES Performing Organization Address City/State/ZIP [place] [address] (ABNORMAL) APTT (07/07/2017 5:15 AM EST) P athologist Signature PTT 69 (H) 25 - 35 sec [facility] Comment: The recommended therapeutic range for fu ll dose, unfractionated heparin at [facility] is 80 ? 114 seconds. The use [...] Address City/State/ZIP Code Phon e Number [address] Magnesium (07/07/2017 5:15 AM EST) athologist Signature Magnesium 0.94 0.69 - 1.07 [facility] mmol/L [facility] Specimen Anatomical Collection Method Collection Time Receive d Time (Source) Location / / Volume Laterality Blood specimen 07/07/2017 5:15 AM 017 5:34 (specimen) EST AM EST Resulting Agency Comment Spec In Lab Daphne Shahid MD CHEMISTRY ORDERABLES Performing Organization Address City/[facility] Code Phon e Number [address] (ABNORMAL) Basic Metabolic Panel (non-fasting) (07/07/2017 5:15 AM EST) athologist Signature Glucose Lvl 203 (H) 65 - 199 [facility] mg/dL [facility] Comment: [...] or in patients with acute kidney failure. http://[employer]/DHnkdep http://[employer]/DHMCnkf Specimen Anatomical Collection Method Collection Time Receive d Time (Source) Location / / Volume Laterality Blood specimen 07/07/2017 5:15 AM 017 5:34 (specimen) EST AM EST Resulting Agency Comment Spec In Lab Daphne Shahid MD CHEMISTRY ORDERABLES Performing Organization Address City/State/ZIP [place] [address] (ABNORMAL) Cardiac Enzymes (LEB/CGP) (07/07/2017 5:15 AM EST) P athologist Signature Troponin-T 2.07 (H) 0.00 [facility] ng/mL [facility] [...] additional sample may be indicated. Reference: Third [place] Definition of Myocardial Infarction. Journal of the [place] [employer] 2012;60:1581-98 CK, Total 88 0 - 200 unit/L [facility] Specimen Anatomical Collection Method Collection Time Receive d Time (Source) Location / / Volume Laterality Blood specimen 07/07/2017 5:15 AM 017 5:34 (specimen) EST AM EST Resulting Agency Comment Spec In Lab Daphne Shahid MD CHEMISTRY ORDERABLES Performing Organization Address City/State/ZIP Code Phon e Number [address] POCT Glucose (07/07/2017 5:01 AM EST) athologist Signature POC Glucose 182 65 - 199 [facility] mg/dL [facility] Comment: [...] Address City/State/ZIP Code Phon e Number [address] POCT Glucose (07/07/2017 4:08 AM EST) athologist Signature POC Glucose 199 65 - 199 [facility] mg[facility]dL [facility] LABORATORY [...] Address City/State/ZIP Code Phon e Number [address] POCT Glucose (07/07/2017 3:03 AM EST) athologist Signature POC Glucose 188 65 - 199 [facility] mg/dL [facility] LABORATORY [...] Address City/[facility]/[place] [address] (ABNORMAL) POCT Glucose (07/07/2017 2:08 AM EST) athologist Signature POC Glucose 200 (H) 65 - 199 [facility] mg/dL [facility]ORATORY [...] Address City/[facility]/[place] [address] (ABNORMAL) POCT Glucose (07/07/2017 1:31 AM EST) athologist Signature POC Glucose 209 (H) 65 - 199 [facility] mg/dL [facility]ORATORY [...] Address City/[facility]/[place] [address] XR Chest PA or [...] [facility] mg/dL [facility] Comment: [...] Organization Address City/State/ZIP [place] [address] (ABNORMAL) APTT (07/07/2017 12:00 AM EST) athologist Signature PTT 103 (H) 25 - 35 sec [facility] Comment: The recommended therapeutic range for fu ll dose, unfractionated heparin at [facility] is 80 ? 114 seconds. The use [...] Address City/State/ZIP Code Phon e Number [address] POCT Glucose (07/06/2017 9:55 PM EST) athologist Signature POC Glucose 109 65 - 199 [facility] mg/dL [facility] LABORATORY [...] Address City/[facility]/ZIP Code Phon e Number [address] POCT Glucose (07/06/2017 9:04 PM EST) athologist Signature POC Glucose 120 65 - 199 [place] mg/dL [facility] LABORATORY [...] Address City/[facility]/ZIP Code Phon e Number [address] POCT Glucose (07/06/2017 7:45 PM EST) athologist Signature POC Glucose 158 65 - 199 [place] mg/dL [facility] LABORATORY [...] Address City/[facility]/[place] [address] Potassium (07/06/2017 7:40 PM EST) athologist Signature Potassium 3.9 3.5 - 5.0 [facility] mmol/L [facility] Comment: [...] Address City/[facility]/[place] [address] (ABNORMAL) Cardiac Enzymes (LEB/CGP) (07/06/2017 7:40 PM EST) athologist Signature Troponin-T 2.27 (H) 0.00 - [place] [facility] 0.00 ng/mL [facility] [...] additional sample may be indicated. Reference: Third [place] Definition of Myocardial Infarction. Journal of the [place] [employer] 2012;60:1581-98 CK, Total 93 0 - 200 unit/L [facility] Specimen Anatomical Collection Method Collection Time Receive d Time (Source) Location / / Volume Laterality Blood specimen 07/06/2017 7:40 PM 017 7:52 (specimen) EST PM EST Resulting Agency Comment Spec In Lab Daphne Shahid MD CHEMISTRY ORDERABLES Performing Organization Address City/[facility]/[place] [address] (ABNORMAL) POCT Glucose (07/06/2017 7:13 PM EST) P athologist Signature POC Glucose 200 (H) 65 - 199 [facility] mg/dL [facility] Comment: [...] Address City/[facility]/[place] [address] (ABNORMAL) APTT (07/06/2017 6:15 PM EST) P athologist Signature PTT 94 (H) 25 - 35 sec [facility] Comment: The recommended therapeutic range for fu ll dose, unfractionated heparin at [facility] is 80 ? 114 seconds. The use [...] Address City/[facility]/[place] [address] (ABNORMAL) POCT Glucose (07/06/2017 6:03 PM EST) athologist Signature POC Glucose 236 (H) 65 - 199 [place] mg/dL [facility] LABORATORY [...] Address City/[facility]/[place] [address] (ABNORMAL) POCT Glucose (07/06/2017 5:01 PM EST) athologist Signature POC Glucose 235 (H) 65 - 199 [place] [facility] mg/dL [facility] LABOR[facility]ORY [...] Address City/[facility]/[place] [address] (ABNORMAL) POCT Glucose (07/06/2017 4:06 PM EST) athologist Signature POC Glucose 202 (H) 65 - 199 [place] [facility] mg/dL [facility] LABOR[facility]ORY [...] Address City/State/ZIP Code Phon e Number [address] POCT Glucose (07/06/2017 2:59 PM EST) athologist Signature POC Glucose 178 65 - 199 [facility] mg/dL [facility] Comment: [...] Address City/[facility]/[place] [address] (ABNORMAL) Cardiac Enzymes (LEB/CGP) (07/06/2017 2:10 PM EST) athologist Signature Troponin-T 2.34 (H) 0.00 - [facility] 0.00 ng/mL [facility] [...] additional sample may be indicated. Reference: Third [place] Definition of Myocardial Infarction. Journal of the [place] [employer]iology 2012;60:1581-98 CK, Total 101 0 - 200 unit/L [facility] Specimen Anatomical Collection Method Collection Time Receive d Time (Source) Location / / Volume Laterality Blood specimen 07/06/2017 2:10 PM 017 2:26 (specimen) EST PM EST Resulting Agency Comment Spec In Lab Daphne Shahid MD CHEMISTRY ORDERABLES Performing Organization Address [facility] Phon e Number [address] POCT Glucose (07/06/2017 2:08 PM EST) P athologist Signature POC Glucose 192 65 - 199 [facility] mg/dL [facility] Comment: [...] Address City/[facility]/[place] [address] POCT Glucose (07/06/2017 1:04 PM EST) P athologist Signature POC Glucose 162 65 - 199 [facility] mg/dL [facility] Comment: [...] Address City/[facility]/ZIP [place] [address] [facility] [address] POCT Glucose (07/06/2017 12:05 PM EST) P athologist Signature POC Glucose 196 65 - 199 [facility] mg/dL [facility] LABORATORY Comment: [...] Address City/[facility]/ZIP Code Phon e Number [address] EKG 12 Lead (07/06/2017 12:00 PM EST) Component Value Ref Range Test Analysis Performed Pathologis t Method Time At Signature Ventricular rate 91 BPM MUSE SYSTEM Atrial Rate 91 BPM MUSE SYSTEM P-R Interval 140 ms MUSE SYSTEM QRS Duration 94 ms MUSE SYSTEM Q-T Interval 394 ms MUSE SYSTEM QTC Calculated 484 ms MUSE SYSTEM (Bezet) Calculated P Wisner 36 degrees MUSE SYSTEM Calculated R Wisner -19 degrees MUSE SYSTEM Calculated T Wisner 104 degrees MUSE SYSTEM INTERPRETATION Normal sinus rhythm MUSE SYSTEM 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) ST & T wave abnormality, consider lateral ischemia Abnormal ECG When compared with ECG of 05-JUL-2017 20:39, No significant change was found Confirmed by MD Luci, Taurus Braun ([id number]) on 07/06/2017 5:07:33 PM Specimen Anatomical Collection Method Collection Time Receive d Time (Source) Location / / Volume Laterality 07/06/2017 12:00 07/06/2017 5:07 PM EST PM EST Daphne Shahid MD ECG ORDERABLES Performing Organization Address City/State/ZIP Code Phon e Number MUSE SYSTEM ABORH Recheck Status (07/06/2017 12:00 PM EST) Patholo gist Method Time Signature ABORH Type Completed [facility] LABORATORY Specimen Anatomical Collection Method Collection Time Receive d Time (Source) Location / / Volume Laterality Blood specimen 07/06/2017 12:00 7 (specimen) PM EST 12:24 PM EST Resulting Agency Comment Spec In Lab Daphne Shahid MD BLOOD BANK ORDERABLES Performing Organization Address City/[facility]/[place] [address] Antibody screen (07/06/2017 12:00 PM EST) Patholo gist Method Time Signature Ab Screen Negative [facility] LABORATORY Expires at 07/09/2017 [facility] [id number] on: [facility] LABORATORY Specimen Anatomical Collection Method Collection Time Receive d Time (Source) Location / / Volume Laterality Blood specimen 07/06/2017 12:00 7 (specimen) PM EST 12:24 PM EST Resulting Agency Comment Spec In Lab Daphne Shahid MD BLOOD BANK ORDERABLES Performing Organization Address City/[facility]/[place] [address] ABO/Rh Typing (07/06/2017 12:00 [...] Address City/[facility]/[place] [address] Prothrombin Time (07/06/2017 11:24 [...] Address City/[facility]/ZIP Code Phon e Number [address] (ABNORMAL) APTT (07/06/2017 11:24 AM EST) P athologist Signature PTT 52 (H) 25 - 35 sec [facility] LABORATORY Comment: The recommended therapeutic range for fu ll dose, unfractionated heparin at [facility] is 80 ? 114 seconds. The use [...] Address City/[facility]/[place] [address] POCT Glucose (07/06/2017 11:02 AM EST) P athologist Signature POC Glucose 187 65 - 199 [facility] mg/dL [facility] LABORATORY Comment: [...] Address City/[facility]/[place] [address] POCT Glucose (07/06/2017 10:18 AM EST) P athologist Signature POC Glucose 193 65 - 199 [place] [facility] mg/dL [facility] LABORATORY [...] Address City/State/[place] [address] POCT Glucose (07/06/2017 9:25 AM EST) athologist Signature POC Glucose 182 65 - 199 [facility]dL [facility] LABORATORY [...] Address City/State/[place] [address] (ABNORMAL) Cardiac Enzymes (LEB/CGP) (07/06/2017 8:10 AM EST) athologist [email or web address] Troponin-T 2.26 (H) 0.00 - [place] 0.00 ng/mL [facility] [...] additional sample may be indicated. Reference: Third [place] Definition of Myocardial Infarction. Journal of the [place] [employer] 2012;60:1581-98 CK, Total 124 0 - 200 unit/L [facility] LABORATORY Specimen Anatomical Collection Method Collection Time Receive d Time (Source) Location / / Volume Laterality Blood specimen 07/06/2017 8:10 AM 017 8:23 (specimen) EST AM EST Resulting Agency Comment Spec In Lab Daphne Shahid MD CHEMISTRY ORDERABLES Performing Organization Address City/[facility]/ZIP Code Phon e Number [address] Magnesium (07/06/2017 8:10 AM EST) P athologist Signature Magnesium 0.84 0.69 - 1.07 [facility] mmol/L [facility] LABORATORY Specimen Anatomical Collection Method Collection Time Receive d Time (Source) Location / / Volume Laterality Blood specimen 07/06/2017 8:10 AM 017 8:21 (specimen) EST AM EST Resulting Agency Comment Spec In Lab Daphne Shahid MD CHEMISTRY ORDERABLES Performing Organization Address City/[facility] [place] [address] (ABNORMAL) Basic Metabolic Panel (non-fasting) (07/06/2017 8:10 AM EST) P athologist Signature Glucose Lvl 199 65 - 199 [facility] mg/dL [facility] LABORATORY Comment: [...] or in patients with acute kidney failure. http://[employer]/DHnkdep http://[employer]/DHnkf Specimen Anatomical Collection Method Collection Time Receive d Time (Source) Location / / Volume Laterality Blood specimen 07/06/2017 8:10 AM 017 8:21 (specimen) EST AM EST Resulting Agency Comment Spec In Lab Daphne Shahid MD CHEMISTRY ORDERABLES Performing Organization Address City/[facility]/[place] [address] POCT Glucose (07/06/2017 7:34 AM EST) P athologist Signature POC Glucose 198 65 - 199 [facility] mg/dL [facility] LABORATORY Comment: [...] Address City/[facility]/[place] [address] POCT Glucose (07/06/2017 7:03 AM EST) P athologist Signature POC Glucose 181 65 - 199 [place] mg/dL [facility] LABORATORY [...] Address City/State/ZIP Code Phon e Number [address] XR Chest PA or [...] Glucose 172 65 - 199 [facility] LAB[facility] Comment: [...] Address City/State/[place] [address] POCT Glucose (07/06/2017 5:08 AM EST) athologist Signature POC Glucose 154 65 - 199 [facility] mg/dL [facility] LAB[facility] Comment: [...] Address City/State/[place] [address] POCT Glucose (07/06/2017 4:05 AM EST) athologist Signature POC Glucose 142 65 - 199 [facility] mg/dL [facility] LABOR[facility] Comment: [...] Address City/[facility]/ZIP Code Phon e Number [address] POCT Glucose (07/06/2017 3:00 AM EST) athologist [facility] POC Glucose 116 65 - 199 [facility] mg/dL [facility] LABORATORY Comment: [...] Address City/[facility]/ZIP Code Phon e Number [address] Potassium (07/06/2017 2:20 AM EST) athologist [facility] Potassium 3.9 3.5 - 5.0 [facility] mmol/L [facility] LABORATORY Comment: [...] Address City/[facility]/ZIP Code Phon e Number [address] Differential, Automated (07/06/2017 2:20 AM EST) athologist [facility] Neutrophils % 72.9 % [facility] LABORATORY Neutr Abs (ANC) 5.53 1.70 - [facility] 6.10 [facility] x10(3)/[facility] LABORATORY Lymphocytes % 16.4 % [facility] LABORATORY Lymphocytes Abs 1.2 0.9 - 3.2 [facility] x10(3)/[facility] LABORATORY Monocytes % 9.4 % [facility] LABORATORY Monocyte Abs 0.7 0.3 - 0.9 [facility] x10(3)/[facility] LABORATORY Eosinophils % 0.5 % [facility] LABORATORY Eosinophils Abs 0.0 0.0 - 0.4 [facility] x10(3)/[facility] LABORATORY Basophils % 0.4 % [facility] LABORATORY Basophils Abs 0.0 0.0 - 0.1 [facility] x10(3)/[facility] LABORATORY Immature Gran % 0.40 [...] - 0.04 x10(3)/[facility] MAR Y [facility] LABORATORY Specimen Anatomical Collection Method Collection Time Receive d Time (Source) Location / / Volume Laterality Blood specimen 07/06/2017 2:20 AM 017 2:33 (specimen) EST AM EST Resulting Agency Comment Spec In Lab Daphne Shahid MD HEMATOLOGY ORDERABLES Performing Organization Address City/State/ZIP [place] [address] (ABNORMAL) Hemogram (07/06/2017 2:20 AM EST) Analysis Performed At Patho logist Time Signature WBC 7.6 4.0 - 9.5 [facility] x10(3)/[facility] LABORATORY RBC 4.52 (L) 4.58 - [facility] 5.54 [facility] x10(6)/[facility] LABORATORY Hemoglobin 13.4 (L) 13.7 - [facility] 16.5 gm/dL [facility] LABORATORY Hematocrit 39.7 (L) 40.5 - [place] 48.5 % [facility] LABORATORY MCV 87.8 82.9 - [facility] 93.1 [facility] LABORATORY MCH 29.6 27.5 - [place] [facility] 32.[address] [facility] LABORATORY MCHC 33.8 32.0 - [place] 35.7 gm/dL [facility] LABORATORY Platelets 189 145 - 357 [facility] x10(3)/[facility] LABORATORY RDWSD 45.6 (H) 36.0 - [facility] 45.0 [facility] LABORATORY RDWCV 14.3 (H) 11.4 - [facility] RYAN 13.8 % [facility] LABORATORY MPV 9.1 7.6 - 12.9 [facility] LABORATORY nRBC % Auto 0.0 % [facility] LABORATORY nRBC Abs Auto 0.000 0.000 - [facility] 0.000 [facility] x10(3)/[facility] LABORATORY Specimen Anatomical Collection Method Collection Time Receive d Time (Source) Location / / Volume Laterality Blood specimen 07/06/2017 2:20 AM 017 2:33 (specimen) EST AM EST Resulting Agency Comment Spec In Lab Daphne Shahid MD HEMATOLOGY ORDERABLES Performing Organization Address City/State/ZIP [place] [address] (ABNORMAL) APTT (07/06/2017 2:20 AM EST) P athologist Signature PTT 52 (H) 25 - 35 sec [facility] LABORATORY Comment: The recommended therapeutic range for fu ll dose, unfractionated heparin at [facility] is 80 ? 114 seconds. The use [...] Address City/State/ZIP Code Phon e Number [address] POCT Glucose (07/06/2017 2:20 AM EST) athologist Signature POC Glucose 115 65 - 199 [facility] mg/dL [facility] LABORATORY [...] Address City/State/[place] [address] (ABNORMAL) Cardiac Enzymes (LEB/CGP) (07/06/2017 2:20 AM EST) athologist Signature Troponin-T 2.13 (H) 0.00 - [place] 0.00 ng/mL [facility] [...] additional sample may be indicated. Reference: Third [place] Definition of Myocardial Infarction. Journal of the [place] College [employer] Cardiology 2012;60:1581-98 CK, Total 129 0 - 200 unit/L [facility] LABORATORY Specimen Anatomical Collection Method Collection Time Receive d Time (Source) Location / / Volume Laterality Blood specimen 07/06/2017 2:20 AM 017 2:33 (specimen) EST AM EST Resulting Agency Comment Spec In Lab Daphne Shahid MD CHEMISTRY ORDERABLES Performing Organization Address City/State/ZIP [place] [address] (ABNORMAL) Hemoglobin A1c (07/06/2017 [...] into estimated average glucose values. ??Diabetes Care 2008:31(8):8550-1654. Specimen Anatomical Collection Method Collection Time Receive d Time (Source) Location / / Volume Laterality Blood specimen 07/06/2017 2:20 AM 017 2:34 (specimen) EST AM EST Resulting Agency Comment Spec In Lab Daphne Shahid MD CHEMISTRY ORDERABLES Performing Organization Address City/State/ZIP [place] [address] (ABNORMAL) Lipid Panel (07/06/2017 2:20 AM EST) [facility] Method Time Signature Chol, Total 150 <=239 [place] mg/dL [facility] LABORATORY Triglycerides 129 <=199 [facility] mg/dL [facility] LABORATORY HDL 32 (L) >=40 [facility] mg/dL [facility] LABORATORY LDL Cholesterol 92 <=190 [place] mg/dL [facility] LABORATORY Chol/HDL Ratio 4.7 ratio [facility] LABORATORY Lipid See Note [place] Interpretation [facility] LABORATORY Comment: Lipid management should be guided by a p atient? s ASCVD risk, goals and preferences. ACC/AHA Guidelines recommend high intens ity statin if clinical ASCVD or LDL greater than or equal to 190 mg/dL. http://tinyurl.com/LPM-STE-Vrwtmrerr Adults aged 40-75 with LDL 70-189 mg/dL should have their 10 year ASCVD risk estimated with the ACC/AHA ASCVD risk es timator http://tools.acc.org/UDREZ-Iqog-Karenmtt r/ Statin should be discussed if risk [...] Address City/[facility]/ZIP Code Phon e Number [address] POCT Glucose (07/06/2017 1:09 AM EST) athologist Signature POC Glucose 121 65 - 199 [facility] mg/dL [facility] LABORATORY [...] Address City/[facility]/[place] [address] POCT Glucose (07/06/2017 12:06 AM EST) athologist Signature POC Glucose 147 65 - 199 [facility] mg/dL [facility] [...] Address City/State/[place] [address] (ABNORMAL) POCT Glucose (07/05/2017 10:56 PM EST) athologist Signature POC Glucose 200 (H) 65 - 199 [facility] mg/dL [facility] LABORATORY [...] Address City/State/[place] [address] (ABNORMAL) POCT Glucose (07/05/2017 10:05 PM EST) athologist Signature POC Glucose 225 (H) 65 - 199 [facility] mg/dL [facility] LABORATORY [...] Address City/State/[place] [address] (ABNORMAL) POCT Glucose (07/05/2017 9:02 PM EST) athologist Signature POC Glucose 301 (H) 65 - 199 [facility] mg/dL [facility] LABORATORY [...] Address City/State/[place] [address] XR Chest PA or [...] 474 ms MUSE SYSTEM (Bezet) Calculated P Wisner 50 degrees MUSE SYSTEM Calculated R Wisner -28 degrees MUSE SYSTEM Calculated T Wisner 90 degrees MUSE SYSTEM INTERPRETATION Sinus tachycardia [...] (ABNORMAL) Differential, Automated (07/05/2017 8:20 PM EST) [facility] gist Method Time Signature Neutrophils % 88.4 % [facility] LABORATORY Neutr Abs (ANC) 9.08 (H) 1.70 - [facility] 6.10 [facility] x10(3)/[facility] LABORATORY Lymphocytes % 7.0 % [facility] LABORATORY Lymphocytes Abs 0.7 (L) 0.9 - 3.2 [facility] x10(3)/[facility] LABORATORY Monocytes % 3.7 % [facility] LABORATORY Monocyte Abs 0.4 0.3 - 0.9 [facility] x10(3)/[facility] LABORATORY Eosinophils % 0.1 % [facility] LABORATORY Eosinophils Abs 0.0 0.0 - 0.4 [facility] x10(3)/[facility] LABORATORY Basophils % 0.2 % [facility] LABORATORY Basophils Abs 0.0 0.0 - 0.1 [facility] x10(3)/[facility] LABORATORY Immature Gran % 0.60 % [facility]BS [...] Organization Address City/State/ZIP [place] [address] (ABNORMAL) Hemogram (07/05/2017 8:20 PM EST) Analysis Performed At Patho logist Time Signature WBC 10.3 (H) 4.0 - 9.5 [facility] x10(3)/[facility] LABORATORY RBC 4.64 4.58 - [place] 5.54 [facility] x10(6)/[facility] LABORATORY Hemoglobin 14.1 13.7 - [place] 16.5 gm/dL [facility] LABORATORY Hematocrit 40.8 40.5 - [facility] 48.5 % [facility] LABORATORY MCV 87.9 82.9 - [facility] 93.1 [facility] LABORATORY MCH 30.4 27.5 - [place] 32.[address] [facility] LABORATORY MCHC 34.6 32.0 - [facility] 35.7 gm/dL [facility] LABORATORY Platelets 204 145 - 357 [facility] x10(3)/[facility] LABORATORY RDWSD 46.1 (H) 36.0 - [facility] 45.0 [facility] LABORATORY RDWCV 14.5 (H) 11.4 - [facility] 13.8 % [facility] LABORATORY MPV 9.7 7.6 - 12.9 [facility] nRBC % Auto 0.0 % [facility] LABORAT[facility] nRBC Abs Auto 0.000 0.000 - [facility] 0.000 [facility] x10(3)/[facility] LABORATORY Specimen Anatomical Collection Method Collection Time Receive d Time (Source) Location / / Volume Laterality Blood specimen 07/05/2017 8:20 PM 017 8:27 (specimen) EST PM EST Resulting Agency Comment Spec In Lab Daphne Shahid MD HEMATOLOGY ORDERABLES Performing Organization Address City/State/ZIP Code Phon e Number [place] [address] APTT (07/05/2017 8:20 PM EST) athologist Signature PTT 32 25 - 35 sec [facility] LABORATORY Comment: The recommended therapeutic range for fu ll dose, unfractionated heparin at [facility] is 80 ? 114 seconds. The use [...] Address City/State/[place] [address] (ABNORMAL) Cardiac Enzymes (LEB/CGP) (07/05/2017 8:20 PM EST) athologist [facility] Troponin-T 2.11 (H) 0.00 - [facility] 0.00 ng/mL [facility] LABORATORY [...] additional sample may be indicated. Reference: Third [place] Definition of Myocardial Infarction. Journal of the [place] College [employer]iology 2012;60:1581-98 CK, Total 149 0 - 200 unit/L [facility] LABORATORY Specimen Anatomical Collection Method Collection Time Receive d Time (Source) Location / / Volume Laterality Blood specimen 07/05/2017 8:20 PM 017 8:27 (specimen) EST PM EST Resulting Agency Comment Spec In Lab Daphne Shahid MD CHEMISTRY ORDERABLES Performing Organization Address City/[facility]/ZIP [facility] [place] [address] (ABNORMAL) Magnesium (07/05/2017 8:20 PM EST) P athologist Signature Magnesium 0.68 (L) 0.69 - 1.07 [facility] mmol/L [facility] LABORATORY Specimen Anatomical Collection Method Collection Time Receive d Time (Source) Location / / Volume Laterality Blood specimen 07/05/2017 8:20 PM 017 8:27 (specimen) EST PM EST Resulting Agency Comment Spec In Lab Daphne Shahid MD CHEMISTRY ORDERABLES Performing Organization Address City/[facility]/[place] [address] (ABNORMAL) Basic Metabolic Panel (non-fasting) (07/05/2017 8:20 PM EST) P athologist Signature Glucose Lvl 321 (H) 65 - 199 [facility] mg/dL [facility] LABORATORY Comment: [...] or in patients with acute kidney failure. http://[employer]/DHnkdep http://[employer]/DHMCnkf Specimen Anatomical Collection Method Collection Time Receive d Time (Source) Location / / Volume Laterality Blood specimen 07/05/2017 8:20 PM 017 8:27 (specimen) EST PM EST Resulting Agency Comment Spec In Lab Daphne Shahid MD CHEMISTRY ORDERABLES Performing Organization Address City/State/[place] [address] (ABNORMAL) POCT Glucose (07/05/2017 7:32 PM EST) P athologist Signature POC Glucose 296 (H) 65 - 199 [facility] mg/dL [facility] LABORATORY Comment: [...] Address City/State/[place] [address] CARDIAC CATHETERIZATION (07/05/2017 6:47 PM EST) Anatomical Region Laterality Modality Other Specimen (Source) Anatomical Location Collection Method / Collectio n Time Received Time / Laterality Volume Narrative 07/05/2017 7:27 PM EST ?[facility] ? Cardiac Cathete rization/Intervention Report ? Patient Name: Gregory Hoang ? Procedure Date: 07/05/2017 ? A #: [id number] ? Primary Physician: Clarisa, Jet T ? Case #: [id number] ? File Name: [id number] ? Catheterization Order Number: [id number] ? [facility] ? Final Report [place], [place] ? Patient Name: ? Gregory Natalya ?ID#: ?[id number] ? : ?1945 ? Procedure Date: ? [...] presented with: non -STEMI (w/i 7 days). [place] ?[employer] Society angina c lass was IV. 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 ? Jet Mckenna M.D. ? Electronically Signed by: Jet bunch M.D. ? Report Finalized: 07/05/2017 ??19:23 ? Report Last Ammended: 10/26/2017 ??10:29 ? Procedure Note Jet Mckenna MD - 10/26/2017Formatt ing of this note might be different from the original. [facility] Cardiac Catheterization/Intervention Re port Patient Name: Gregory Hoang Procedure Date: 07/05/2017 A #: [id number] Primary Physician: Jet Mckenna Case #: [id number] File Name: [id number] Catheterization Order Number: [id number] [facility] Final Report [place], [place] Patient Name: Gregory Hoang ID#: [id number] : 1945 Procedure Date: July 05, [...] presented with: non-STEMI ( w/i 7 days). [place] [employer] angina class was IV. 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 Jet Mckenna M.D. Electronically Signed by: [...] Mccollum ? (Age): 1945(72y) Med Rec#: ? [id number] ?Sex: ?M ? Site Loc: ? [facility] ?Ht / Wt: ??173(cm)/86(kg) Pt. Loc: ?CCU ? BSA: ?2 Study Date: ?? 07/05/2017 ?Pt. Type: Inpatient Tape: ? Referring: Daphne Shahid ([id number]) Referring: MANDA ALCANTAR Reading: Blade Preston ([id number]) Clinical Research Tech: Dayami Paula BA, [facility] Diagnosis: [...] E-wave Vmax ?0.8 ?m/sec ? MV deceleration [id number] ?msec ? MV A-wave Vmax ?0.8 ?m/sec [...] ? Mid-Inferior ?Akinetic ? Mid-Inferoseptal ?Hypokinetic ? [place]-Septal ? Akinetic ? [place]-Anterior ? Hypokinetic ? [place]-Lateral ?Hypokinetic ? Keystone-Inferior ? Akinetic ? Keystone-Tip ?Akinetic ? This report has been electronically sign ed by: _ Blade Preston MD ? 07/06/2017 08 :53:15 Images reviewed and interpretation [facility] Cardiac Ultrasound Laboratory Procedure Note Blade Preston MD - 07/06/2017Formatt ing of this note might be different from the original. Procedure: Transthoracic Echocardiogram Patient: NATALYA MCBRIDE(Age): [birth year]72y) Med Rec#: [id number] Sex: M [place] Loc[place] [facility] [place] Ht / Wt: 173(cm)/86(kg) Pt. Loc: CCU BSA: 2 Study Date: 07/05/2017 Pt. Type: Inpatie nt Tape: Referring: Daphne Shahid ([id number]) Referring: MANDA ALCANTAR Reading: Blade Preston ([id number]) Clinical Research Tech: Dayami Paula BA, [facility] Diagnosis: [...] MV E-wave Vmax 0.8 m/sec MV deceleration [id number] msec MV A-wave Vmax 0.8 m/sec MV [...] Hypokinetic Mid-Posterolateral Hypokinetic Mid-Inferior Akinetic Mid-Inferoseptal Hypokinetic Keystone-Septal Akinetic Keystone-Anterior Hypokinetic Keystone-Lateral Hypokinetic Keystone-Inferior Akinetic Keystone-Tip Akinetic This report has been electronically sign ed by: _ Blade Preston MD 07/06/2017 08:53:15 Images reviewed and interpretation ver ied [facility] Cardiac Ultrasound Laboratory Daphne Shahid MD ECHO ORDERABLES Differential, Automated (07/05/2017 4:55 PM EST) athologist Signature Neutrophils % 77.0 % [facility] Neutr Abs (ANC) 5.26 1.70 - [facility] 6.10 [facility] x10(3)/[facility] LABORATORY Lymphocytes % 13.3 % [facility] Lymphocytes Abs 0.9 0.9 - 3.2 [facility] x10(3)/[facility] LABORATORY Monocytes % 8.2 % [facility] Monocyte Abs 0.6 0.3 - 0.9 [facility] x10(3)/[facility] LABORATORY Eosinophils % 0.7 % [facility] Eosinophils Abs 0.0 0.0 - 0.4 [facility] x10(3)/[facility] LABORATORY Basophils % 0.4 % [facility] Basophils Abs 0.0 0.0 - 0.1 [facility] x10(3)/[facility] LABORATORY Immature Gran % 0.40 [...] - 0.04 x10(3)/[facility] LABOR[facility] Specimen Anatomical Collection Method Collection Time Receive d Time (Source) Location / / Volume Laterality Blood specimen 07/05/2017 4:55 PM 017 5:24 (specimen) EST PM EST Resulting Agency Comment Spec In Lab Daphne Shahid MD HEMATOLOGY ORDERABLES Performing Organization Address City/State/ZIP [place] [address] (ABNORMAL) Hemogram (07/05/2017 4:55 PM EST) Analysis Performed At Patho logist Time Signature WBC 6.8 4.0 - 9.5 [facility] x10(3)/[facility] LABORATORY RBC 4.67 4.58 - [facility] 5.54 [facility] x10(6)/[facility] LABORATORY Hemoglobin 14.0 13.7 - [facility] 16.5 gm/dL [facility] Hematocrit 41.0 40.5 - [facility] 48.5 % [facility] MCV 87.8 82.9 - [facility] 93.1 [facility] LABORATORY MCH 30.0 27.5 - [place] 32.[address] [facility] MCHC 34.1 32.0 - [place] 35.7 gm/dL [facility] Platelets 197 145 - 357 [facility] x10(3)/[facility] LABORATORY RDWSD 46.4 (H) 36.0 - [place] 45.0 [facility] LABORATORY RDWCV 14.5 (H) 11.4 - [place] 13.8 % [facility] MPV 9.7 7.6 - 12.9 [facility] LAB[facility]ATORY nRBC % Auto 0.0 % [facility] nRBC Abs Auto 0.000 0.000 - [place] 0.000 [facility] x10(3)/[facility] LABORATORY Specimen Anatomical Collection Method Collection Time Receive d Time (Source) Location / / Volume Laterality Blood specimen 07/05/2017 4:55 PM 017 5:24 (specimen) EST PM EST Resulting Agency Comment Spec In Lab Daphne Shahid MD HEMATOLOGY ORDERABLES Performing Organization Address City/State/ZIP [place] [address] (ABNORMAL) Cardiac Enzymes (LEB/CGP) (07/05/2017 4:55 PM EST) P athologist Signature Troponin-T 1.69 (H) 0.00 - [place] 0.00 ng/mL [facility] [...] additional sample may be indicated. Reference: Third [place] Definition of Myocardial Infarction. Journal of the [place] [employer] 2012;60:1581-98 CK, Total 191 0 - 200 unit/L [facility] Specimen Anatomical Collection Method Collection Time Receive d Time (Source) Location / / Volume Laterality Blood specimen 07/05/2017 4:55 PM 017 5:56 (specimen) EST PM EST Resulting Agency Comment Spec In Lab Daphne Shahid MD CHEMISTRY ORDERABLES Performing Organization Address City/[facility]/[place] [address] (ABNORMAL) pro-Brain Natriuretic Peptide (07/05/2017 4:55 PM EST) P athologist Signature ProBNP 1,598 (H) <=125 [facility] pg/mL [facility] Specimen Anatomical Collection Method Collection Time Receive d Time (Source) Location / / Volume Laterality Blood specimen 07/05/2017 4:55 PM 017 5:24 (specimen) EST PM EST Resulting Agency Comment Spec In Lab Daphne Shahid MD CHEMISTRY ORDERABLES Performing Organization Address City/State/[place] [address] Magnesium (07/05/2017 4:55 PM EST) P athologist Signature Magnesium 0.78 0.69 - 1.07 [facility] mmol/L [facility] Specimen Anatomical Collection Method Collection Time Receive d Time (Source) Location / / Volume Laterality Blood specimen 07/05/2017 4:55 PM 017 5:24 (specimen) EST PM EST Resulting Agency Comment Spec In Lab Daphne Shahid MD CHEMISTRY ORDERABLES Performing Organization Address City/State/ZIP [place] [address] (ABNORMAL) Basic Metabolic Panel (non-fasting) (07/05/2017 4:55 PM EST) P athologist Signature Glucose Lvl 230 (H) 65 - 199 [facility] mg/dL [facility] Comment: [...] or in patients with acute kidney failure. http://[employer]/DHnkdep [email or web address]://[employer]/DHMCnkf Specimen Anatomical Collection Method Collection Time Receive d Time (Source) Location / / Volume Laterality Blood specimen 07/05/2017 4:55 PM 017 5:24 (specimen) EST PM EST Resulting Agency Comment Spec In Lab Daphne Shahid MD CHEMISTRY ORDERABLES Performing Organization Address City/[facility]/[place] [address] (ABNORMAL) APTT (07/05/2017 4:55 PM EST) P athologist Signature PTT 41 (H) 25 - 35 sec [facility] Comment: The recommended therapeutic range for fu ll dose, unfractionated heparin at [facility] is 80 ? 114 seconds. The use [...] Address City/[facility]/[place] [address] (ABNORMAL) POCT Glucose (07/05/2017 4:53 PM EST) athologist Signature POC Glucose 208 (H) 65 - 199 [facility] mg/dL [facility] Comment: [...] Address City/[facility]/[place] [address] EKG 12 Lead (07/05/2017 4:32 PM EST) Component Value Ref Range Test Analysis Performed Pathologis t Method Time At Signature Ventricular rate 97 BPM MUSE SYSTEM Atrial Rate 97 BPM MUSE SYSTEM P-R Interval 148 ms MUSE SYSTEM QRS Duration 96 ms MUSE SYSTEM Q-T Interval 364 ms MUSE SYSTEM QTC Calculated 462 ms MUSE SYSTEM (Bezet) Calculated P Wisner 48 degrees MUSE SYSTEM Calculated R Wisner -33 degrees MUSE SYSTEM Calculated T Wisner 98 degrees MUSE SYSTEM INTERPRETATION Normal sinus [...] dose on Wed07/07/17 at 2100, Until Discontinued, [place] teeth, Routine Given 07/08/2017 10:06 PM EST [...] or norepinephrine is ineffective. Call pager # [phone] if initiated. Rate/Dose Change 07/08/2017 7:01 PM [...] if phenyleprine and/or vasopressin ineffective.Call pager # [phone] if initiated., Routine Rate/Dose Change 07/09/2017 1:24 [...] L/min/M2. Maximum volume 2 L. Call warehouse checker for additional fluid orders: pager #[phone]. Rate/Dose Verify 07/08/2017 4:00 AM EST 100 [...]
Routine documented in this encounter Care Teams Insulation Sprayer Relationship Specialty Start Date End Date Lovely Vicente MD PCP - General 04/16/[address] [place] [address] [address] [facility] [address] [place] [address] documented as of this encounter
--- OUTSIDE RECORDS SUMMARY | 2022-05-08 02:28 | XMS_ITS | Encounter Summary ---
:1945 [place] [address] Care Team Providers Name Role Phone Lovely Vicente MD Primary Care Provider Reason for Visit Auth/Cert Specialty Diagnoses / Procedures Referred By Contact Refer red To Contact Diagnoses STEMI (ST elevation myocardial infarction) NSTEMI STEMI Procedures CARDIAC CATHETERIZATION NAYE IPI Referral ID Status Reason Start Date Expiration Date Visits Requ ested Visits Authorized [id number] 1 1 Encounter Details Date Type Department Care Team Description 07/07/2017 Anesthesia Event Main Operating Room Yifan Jaime MD [facility] [place] [address] [facility] Ginny Murray MD [facility] DR ANESTHESIOLOGY [place] [address] [facility] [place] [address] Anesthesia Record Procedure Summary Procedure Name [...] 2342 LDA Cath/EP Sheath 07/05/17; 0606; 8 Tristanian 07/05/17 0606 by [id number] by (Fr); Right; Femoral [place], Yane Cook, RN PIV 07/05/17; 1720; median 07/05/17 1720 by 07/11/17 2355 by vein (underside of arm), Prior, Yanet Maza, Angela Mccurdy, left; 18 gauge; removed DIVISION ORDER ANALYST per policy/procedure; 07/11/17; 2355 Intra-Aortic Balloon 07/05/17; [...] Miller, Carrie L, Type: Cuffed; ETT Size: PRESS OPERATOR AUTOMATIC 8 mm; Santiago Blade: 2; Notes: Asleep, [...] Murray MD - 07/08/2017 5:08 PM EST [facility] Department of Anesthesiology Post-procedure Note Patient: Don Fatima Procedure Summary Date Anesthesia Start Anesthesia Stop Room / Location 07/07/17 1335 1836 [facility] MA[facility] OR Procedure Diagnosis Surgeon Responsible Provider @CABG, USING ARTERIAL GRAFT;SINGLE ARTERIAL GRAFT (WRVU 33.75) (N/A Chest); @CABG, TWO VENOUS GRAFTS & ARTERIAL GRAFT (WRVU 7.93) (N/A Chest); ENDOSCOPIC HARVEST VEIN(S) FOR CABG (WRVU 0.31) (Right Leg) (CAD) Yuan Freitas MD Hartman, Gregg S, MD All Anesthesia Providers: Anesthesiologist: Yifan Perez MD Neonatal Surgeon: Ginny Murray MD Most Recent Vitals: 07/08/17 [...] at [facility] ENDOSCOPY ??? PRO THYROIDECTOMY 03/28/2013 THYROIDECTOMY, TOTAL OR COMPLETE performed by Manny Mcknight MD at [facility] MAIN OR Social History Substance Use [...] Cardiology Zulma Dolan MD [facility] [place] [address] (Wo rk) 05/28/2022 Laboratory Appointment Lab 05/28/2022 Office Visit Cardiology Zulma Dolan MD [place] [address] Liz Poole PA [facility] [place] [address] 06/10/2022 Office Visit Dermatology Laura Scherer MD [facility] DR TEJA GR[facility]DER[facility] [place]LOG[place], [place] [address] [...] mg documented in this encounter Care Teams Preschool Director Relationship Specialty Start Date End Date Lovely Vicente MD PCP - General 04/16/[address] [place] [address] documented as of this encounter
--- OUTSIDE RECORDS SUMMARY | 2022-05-08 02:28 | XMS_ITS | Encounter Summary ---
:1945 Author Organization [facility] Address [facility] [place] [address] Care Team Providers Name Role Phone Lovely Vicente MD Primary Care Provider Reason for Visit Auth/Cert Specialty Diagnoses / Procedures Referred By Contact Refer red To Contact Diagnoses STEMI (ST elevation myocardial infarction) NSTEMI STEMI Procedures CARDIAC CATHETERIZATION NAYE IPI Referral ID Status Reason Start Date Expiration Date Visits Requ ested Visits Authorized [id number] 1 1 Encounter Details Date Type Department Care Team Description 07/07/2017 Surgery Main Operating Room Yuan Webber, @ CABG, USING ARTERIAL Barbara Ocampo MD GRAFT;SINGLE ARTERIAL Hospital [facility] GRAFT (WRVU 33.75) [facility] DR Siddiqu[place] [address] SURGERY [phone] [place], [place] [address] (Wo rk) Social History Tobacco [...] in this encounter Discharge Summaries Martha Teague, ZIGZAGGER - 07/14/2017 9:38 AM EST Inpatient - Discharge Summary Patient Name: Gregory Hoang Patient Age: 72 y.o. Birthdate: 1945 Language: Vincentian Race: White Ethnicity: Not nor Admit Date: [...] , @ 1:20p Patient to follow-up with Farm Technician/heart failure team in one week. An appointment will be made for you. You may call [phone] Patient to follow-up with Cardiac Surgery, Dr. Yuan Webber, in ~ 4 weeks with CXR, EKG. Inpatient Provider Contact Information: [facility] Section of Cardiac Surgery [facility] [place] [address] FAX [phone] Discharge Diagnoses (Hospital Problems) Primary Diagnoses: CAD [...] Yuan Webber MD at [facility] OR ??? PRO CABG, ARTERY-VEIN, TWO N/A 07/07/2017 @CABG, TWO VENOUS GRAFTS & ARTERIAL GRAFT (WRVU 7.93) performed by Yuan Webber MD at [facility] OR ??? PRO COLONOSCOPY, REMV LESN, SNARE 01/16/2014 COLONOSCOPY, POLYPECTOMY, REMOVAL LESION BY SNARE performed by Nohemi Jaimes MD at [facility] ENDOSCOPY ??? PRO ENDOSCOPY W/VIDEO-ASST VEIN HARVEST, CABG Right 07/07/2017 ENDOSCOPIC HARVEST VEIN(S) FOR CABG (WRVU 0.31) performed by Yuan Webber MD at [facility] OR ??? PRO THYROIDECTOMY 03/28/2013 THYROIDECTOMY, TOTAL OR COMPLETE performed by Manny Mcknight MD at [facility] OR Prior To Admission Medications Prescriptions Prior to Admission Medication Sig Dispense Refill Last Dose ??? levothyroxine (SYNTHROID) 175 mcg Tablet Take 1 tablet by mouth daily. 90 tablet 3 07/05/2017 [id number] ??? ascorbic acid, vitamin C, (VITAMIN C) [...] not take or discontinue any prescription or wwqd-vbs-tkaavjo medications without asking your doctor or pharmacist [...] Yuan Webber and/or the Cardiac Surgery Physician Fire Systems Inspector Team may be reached at . [...] Dr. Yuan Webber. You may use a [place] Track or treadmill but avoid any [...] with the surgeon. Do not ride motorcycles, Manjrasoft's tractors or horses. Avoid the use of [...] should resume a low fat, low cholesterol, [place] Heart Association Diet/Diabetic diet. Driving: No driving [...] , @ 1:20p Patient to follow-up with Farm Technician/heart failure team in one week. Appointment will be made for you. You may call [phone] Patient to follow-up with Cardiac Surgery, Dr. Yuan Webber, in ~ 4 weeks with CXR, EKG. Cardiac Rehabilitation: Gregory Hoang was seen today regarding participation in the outpatient Phase 2 Cardiac Rehabilitation at [facility]. The patient agrees to a referral to this program. The referral will be sent at discharge and the patient should be contacted by the Program within 1- 2 weeks from discharge. ?? Future Appointments and Orders Future Appointments Provider Department Dept Phone 09/07/2017 3:00 PM LAB, THREE L Lab 3L [facility] [phone] 09/07/2017 4:00 PM Luz Prescott MD Endocrinology at [place] [phone] Future Orders Complete By Expires EKG 12 Lead [EKG1 Custom] 08/14/2017 02/13/2018 Process Instructions: Scheduling Instructions: Questions: Which DH location will this be performed?: [place] Is a rhythm strip needed?: No If EKG Reason is Pre-op Evaluation, indicate diagnosis for surgery.: XR Chest PA & Lateral (Generic) [57746 13049 Custom] 08/14/2017 02/13/2018 Process Instructions: Scheduling Instructions: Questions: Where will study be performed?: [place] [facility] Portable exam?: Reason for exam and clinical history: CABG x 3 Other pertinent information: Stat read required?: Date of injury if applicable: Requested Time: Referral to Cardiac Rehab [PBG124 Custom] As directed Process Instructions: If no progress note charted, please enter Clinical details in comments. Scheduling Instructions: Questions: My question or request is: s/p CABG. Cardiac rehab at [facility] Referral to Home Health - at DISCHARGE [JFW8900 CPT(R)] As directed Process Instructions: Scheduling Instructions: Comments: DOCUMENTATION FOR VNA SERVICES (INCLUDING THOSE PATIENTS WITH MEDICARE COVERAGE REQUIRING HOME VNA SERVICES AND/OR HOSPICE SERVICES) PATIENT'S LOCATION: Gregory Hoang [address] [place] [address] [place] [id number] (home) Telephone Information: Order Dispatcher Chief's Name: self In discussion with the attending physician, it is certified that this patient is under their care and that they, or a Nurse Practitioner, or Physician Fire Systems Inspector who is working directly with them, [...] HEALTH AGENCY: [facility] ([facility] [place] [facility]-is in [place], [place]) PHONE: [phone] FAX: [phone] RN orders: Cardiopulmonary assessment, incisional assessment, assess vital signs, assessment of rehab progress, medication management and effectiveness, home safety evaluation. Please draw INR if indicated and send result to:Dr Vicente [phone] PT ORDERS: Continue rehab for endurance, gait stability and strength with mobility and transfers. Home safety evaluation. Home exercise program if appropriate. Start of Care Date:24-48 hours after discharge SPECIAL INSTRUCTIONS: For any follow up questions, needs, or issues please call the Cardiac Surgery Office at [phone] FOR MEDICARE ONLY: (please delete this section [...] noted. Questions: Agency name and contact information: [facility] Patient location post discharge: home What services are requested: Registered Nurse Physical Therapy Start date: Responsible MD post discharge contact info: PCP Arrangements for VNA/home care: As above. VN RN OR PCP TO PLEASE REMOVE CHEST TUBE SUTURES ON OR AFTER 07/17/2017 Signed: Martha Teague APRN [facility] Section of Cardiac Surgery [facility] [place] [address] FAX [phone] Date: 07/14/2017 CC: MD Ivania Cr Betsy, PA [address] [place] [phone] documented in this encounter Discharge Instructions Discharge [...] not take or discontinue any prescription or unzf-wch-ngwfepp medications without asking your doctor or pharmacist [...] Yuan Webber and/or the Cardiac Surgery Physician Fire Systems Inspector Team may be reached at . [...] Dr. Yuan Webber. You may use a [place] Track or treadmill but avoid any [...] with the surgeon. Do not ride motorcycles, Manjrasoft's tractors or horses. Avoid the use of [...] should resume a low fat, low cholesterol, [place] Heart Association Diet/Diabetic diet. ?? Driving: No [...] @ 1:20p ?? Patient to follow-up with Farm Technician/heart failure team in one week. An appointment has been made for you, you can call [phone] ?? Patient to follow-up with Cardiac Surgery, Dr. Yuan Webber, in ~ 4 weeks with CXR, EKG. ? Cardiac Rehabilitation: Gregory Hoang??was seen today regarding participation in the outpatient Phase 2 Cardiac Rehabilitation at [facility]. ?? The patient agrees to a referral to this program.? The referral will be sent at discharge and the patient should be contacted by the Program within 1- 2 weeks from discharge. ? Future Appointments and Orders Future Appointments Provider Department Dept Phone ?? 09/07/2017 3:00 PM LAB, THREE L Lab 3L [facility] [phone] ?? 09/07/2017 4:00 PM Luz Prescott MD Endocrinology at [place] [phone] Future Orders Complete By Expires ?? EKG 12 Lead [EKG1 Custom] 08/14/2017 02/13/2018 ?? Process Instructions: ? Scheduling Instructions: ? Questions: ? Which location will this be performed?: [place] ?? Is a rhythm strip needed?: No ?? If EKG Reason is Pre-op Evaluation, indicate diagnosis for surgery.: ?? XR Chest PA & Lateral (Generic) [37913 38067 Custom] 08/14/2017 02/13/2018 ?? Process Instructions: ? Scheduling Instructions: ? Questions: ? Where will study be performed?: [place] [facility] ?? Portable exam?: ?? Reason for exam and clinical history: CABG x 3 ?? Other pertinent information: ?? Stat read required?: ?? Date of injury if applicable: ?? Requested Time: ?? Referral to Cardiac Rehab [BLK228 Custom] As directed ? Process Instructions: ?? If no progress note charted, please enter Clinical details in comments. ?? Scheduling Instructions: ? Questions: ? My question or request is: s/p CABG. Cardiac rehab at [facility] ? Arrangements for VNA/home care: As [...] - 07/14/2017 2:34 PM EST The patient/patient representative has been provided a list of Home Health Agencies/DME vendors which serve their preferred geographic area. A letter describing our affiliations was reviewed with them and theywere educated about their right to choose where referrals are placed. Patient requests referral to [facility]. PHONE: [phone] FAX: [phone] Expected date of discharge: 07/14 Referral routed to the Show Design Supervisor for matching with agency/vendor and to [...] [facility] Diabetes Management Pager [phone] minutes of this 35 minute visit was spent with the patient in counseling on diabetes and treatment plan, reviewing all glucose and insulin data as well as relevant laboratory results with the patient, and coordination of care on the inpatient unit including nursing and primary team. Zulma Power RN - 07/14/2017 10:30 AM EST The patient/patient representative has been provided a list of Home Health Agencies/DME vendors which serve their preferred geographic area. A letter describing our affiliations was reviewed with them and theywere educated about their right to choose where referrals are placed. Patient requests referral to : [facility] ([facility] [place] [facility]-is in [place] PHONE: [phone] FAX: [phone]. Expected date of discharge: 07/14/17 Referral routed to the Show Design Supervisor for matching with agency/vendor and to [...] hours. If BG remains greater than 240, eivzxe02 units (no more than three times) &??call [...] [facility] Diabetes Management Pager [phone] minutes of this 25 minute visit [...] of infiltration/extravasation Discussed plan of care with DREDGE RUNNER and RN. Elevate exrtemity and apply intermittent Warm compresses. Name of MD contacted Dr. Shaw Brown 07/13/2017 @ 0694 Name of RN contacted Ale Rangel RN Name of Pharmacist if consulted NA Name of Plastics MD ( if consulted) NA (Mandatory photo for infiltrations/ extravasations scoring a stage 2 or greater, but recommended forstage 1)( include measuring tape and identifier in the photo) BLOCK BREAKER OPERATOR CARING FOR THIS PATIENT WILL CONTINUE [...] measuring tape and identifier in the photo) BLOCK BREAKER OPERATOR CARING FOR THIS PATIENT WILL CONTINUE [...] regard to both infiltrates addressed by this copy writer.All of MrMadiha Hoang's responses were entirely appropriate. Images of infiltrates attached here. L Martha Teague, ZIGZAGGER - 07/13/2017 8:01 AM EST Cardiac Surgery Progress Note: ID: [id number] 72 year old male POD#6 s/p CABGx3 [...] ?? I have met with the patient/patient representative to discuss discharge planning needs. I have provided the [facility], Office of Care Management letter from the Shell Worker pertaining to rehab referrals. I have also provided a letter describing our affiliations within the [facility] and educated them about their right to choose where referrals are placed. ?? I reviewed the different levels of rehab including SNF, swing, acute and LTAC with the patient/patient representative. ?? The patient/patient representative has been provided a list of facilities within their preferred geographic area. ?? I have requested that the patient/patient representative provide at least three choices for referral. ?? The patient/patient representative have requested referrals to: ?? [facility]. [facility] ?? 2. [facility] ?? 3. More to be entered ?? Expected date of discharge: 07/14 Note routed to Show Design Supervisor who will communicate referrals to facilities [...] [facility] Diabetes Management Pager [phone] minutes of this 35 minute visit was spent with the patient in counseling on diabetes and treatment plan, reviewing all glucose and insulin data as well as relevant laboratory results with the patient, and coordination of care on the inpatient unit including nursing and primary team. Makayla Stevenson APRN - 07/12/2017 9:52 AM EST Cardiac Surgery Progress Note: ID: [id number] 72 year old male POD#5 s/p CABGx3 [...] PM EST Patient arrived from [facility]. VSS. MSI dressing pulled off [...] hours. If BG remains greater than 240, eggefd11 units (no more than three times) & [...] AM EST Cardiac Surgery Progress Note: ID: [id number] 72 year old male POD#4 s/p CABGx3 [...] hours. If BG remains greater than 240, qbgsqu65 units (no more than three times) & [...] AM EST Cardiac Surgery Progress Note: ID: [id number] 72 year old male POD#3 s/p CABGx3 [...] Gas) No results found for: PHART, PO2ART, GOZ6MHY Assessment/Plan: 72 year old male POD#3 s/p [...] Mami Thao - 07/09/2017 6:29 PM EST Management Aide Encounter Note Patient Name: Gregory Hoang : [id number] MR#: [id number] Admit Date: 07/05/2017 4:20 PM Hospital Day 4 days Narrative: Patient was sitting in chair, hugging heart pillow, opened his eyes, nodding to come into room Assessment: Patient was sleepy. Intervention and Outcome: Introduced manager of financial planning services and patient reached his hand out in appreciation. Follow-up: Management Aide remains available for support. Time in Direct [...] AM EST Cardiac Surgery Progress Note: ID: [id number] 72 year old male POD#2 s/p CABGx3 [...] completed shifts: In: 7977.4 [I.V.:7477.4; Other:500] Out: 6435 [Urine:3000; Other:615] I- 4 L O- 2.7 [...] when IABP d/c'ed. Gretchen Carolina, PT Pager [phone] Maddison Cee PA - 07/08/2017 11:27 AM EST Cardiac Surgery Progress Note: ID: [id number] 72 year old male POD#1 s/p CABGx3 [...] on the unit. NICK SEGAL MD 07/08/2017 Jya Munoz RCP - 07/08/2017 4:33 AM EST [...] in place in R femoral. No hematoma. SR SOLUTIONS CONSULTANT- Intact Psych- Anxious Skin- Dry, no [...] intact. IABP in place in R femoral. SR SOLUTIONS CONSULTANT- Intact Psych- Anxious Skin- Dry, no [...] note for details. DAPHNE SHAHID MD Pager [phone] Jet Mckenna MD - 07/05/2017 6:48 PM EST Preliminary Cardiac Catheterization Procedure Note: Procedure(s) performed: Left heart cath, IABP insertion Access: Right CROZE CUTTER HELPER-->8fr IABP A time-out was conducted prior [...] Shahid MD PCP: Lovely Vicente MD PCP#: [phone] Patient Active Problem List Diagnosis Code ??? [...] heparin drip and transferred to [facility]. While there, continued sob, question of chest pain. Stat TTE showing WMA diffusely and EF around 20%. No significant valvular disease. Taken to the pie bakery laborer urgently for ongoing STEMI. [facility] Labs: INR 1.0 WBC 5.88 Hgb [...] Medicine, PGY-2 Cardiology S1, Team Pager # [phone] CARDIOLOGY ATTENDING NOTE Patient: Gregory Hoang Date [...] amenable for PCI. DAPHNE SHAHID MD Pager [phone] documented in this encounter Miscellaneous Notes Consult Note - Daphne Shahid MD - 07/14/2017 11:46 AM EST Heart Failure Service Inpatient Consult Note Gregory Hoang Date of : 1945 Age: 72 y.o. Today's date: 07/14/17 PCP: Lovely Vicente MD CLINICAL DOCUMENTATION MANAGER: None Place of Service: C451-A Reason [...] Yuan Webber MD at [facility] OR ??? PRO CABG, ARTERY-VEIN, TWO N/A 07/07/2017 @CABG, TWO VENOUS GRAFTS & ARTERIAL GRAFT (WRVU 7.93) performed by Yuan Webber MD at [facility] OR ??? PRO COLONOSCOPY, REMV LESN, SNARE 01/16/2014 COLONOSCOPY, POLYPECTOMY, REMOVAL LESION BY SNARE performed by Nohemi Jaimes MD at [facility] ENDOSCOPY ??? PRO ENDOSCOPY W/VIDEO-ASST VEIN HARVEST, CABG Right 07/07/2017 ENDOSCOPIC HARVEST VEIN(S) FOR CABG (WRVU 0.31) performed by Yuan Webber MD at [facility] OR ??? PRO THYROIDECTOMY 03/28/2013 THYROIDECTOMY, TOTAL OR COMPLETE performed by Manny Mcknight MD at [facility] OR Outpt Meds: Current Outpatient Prescriptions Medication [...] following studies: EKG 07/14/17: NSR 75 bpm, CARDIAC REHABILITATION SPECIALIST anterior infarct, LAD CXR 07/11/17: FINDINGS: Sternotomy wires. The patient has been extubated, left chest tube removed, and Hilmar-Suzi catheter removed since the 07/07/2017 study. Atelectasis [...] discussed with Zehra. Jaden Kelley MD Data Keyer Pager [phone] CARDIOLOGY ATTENDING NOTE Patient: Gregory Hoang Date [...] heart failure clinic. DAPHNE SHAHID MD Pager [phone] Plan of Care - Alden Chavarria, JEWEL HOLE DRILLER - 07/14/2017 11:35 AM EST Problem: Patient [...] Discharge Disposition: home with assist Alden Chavarria, JEWEL HOLE DRILLER Pager: [phone] Inpatient Physical Therapy Problem: Acute Rehab Services [...] sit/sit to supine -- Bed Mobility Goal, [place] Level supervision required -- Bed Mobility Goal, [...] - 3 days -- Gait Training Goal, [place] Level supervision required -- Gait Training Goal, [...] days -- Transfer Training Goal, Activity Type vdr-eu-vkkwu/mgkem-gp-gzq;xro-fl-orlrw/zptbl-yt-yrx;toilet -- Transfer Train Goal, [place] Level supervision required -- Transfer Training Goal, [...] keeping present for 2 days per family. Bulk Filler noted of frustrations, house keeping sent to room. Patient offered showered twice, refused. at bedside, frustrated that shower not complete, informed that patient had refused several times. requesting to see FISHING VESSEL MATE, paged sent to Martha, will come to bedside (middle of consult). not willing to wait, Martha notified that family had gone home. Encouraged to come for morning rounds a t 8am. Diabetes team at bedside - insulin adjustments made. Call cabello in reach. Continue to monitor. PLAN MOVING FORWARD: Ambulate, dressing changes BID, Please change drsg at 4am per Martha FISHING VESSEL MATE request. INDIVIDUALIZED FALL PREVENTION INTERVENTIONS: Patient-specific fall [...] levels on the lower side, 60ml of [place] juice given after a FS of 80. [...] Conf 07/13/17 0502 Interdisciplinary Rounds/Family Conf Participants therapeutic case manager;dietitian/nutrition services;nursing;occupational therapy;patient;pharmacy;physical therapy;physician Plan of [...] monitoring required during toileting and ADLs]: RN DREDGE RUNNER Surveillance [continuous indirect monitoring]: Barrett Monitor CPG [...] Anticipated Discharge Disposition: home with assist Pager: [phone] CLARISSA SEGAL, PT 07/12/2017 Physical Therapy Rehabilitation [...] to sit/sit to supine Bed Mobility Goal, [place] Level supervision required Bed Mobility Goal, Additional Goal adheres to psternal precautions for transfer Goal: Gait Training Goal Stand Alone Therapy Goal Outcome: Ongoing (Interventions Implemented as Appropriate) 07/12/17 1225 Gait Training Goal Gait Training Goal, Date Established 07/12/17 Gait Training Goal, Time to Achieve 2 - 3 days Gait Training Goal, [place] Level supervision required Gait Training Goal, Assist [...] 3 days Transfer Training Goal, Activity Type bap-dg-uplag/fhgkn-fd-ipy;oas-zq-snbyx/oeihv-aj-gwe;toilet Transfer Train Goal, [place] Level supervision required Transfer Training Goal, Additional Goal adheres to sternal precautions during transfer Consult Note - Octavia Vaughn RN - 07/12/2017 10:50 AM EST [facility] CARDIAC REHABILITATION Gregory Hoang was seen today regarding participation in the outpatient Phase 2 Cardiac Rehabilitation at [facility]. The patient agrees to a referral [...] IV site, amio to other piv and FIELD OBSERVER at bedside to help assess, IV removed. [...] staff, he stood and marched in place. [place] weak, wanting to sit back down. Remained [...] Health/Prescription Coverage: Primary Insurance: MEDICARE Secondary Insurance: Veodin Prescription Coverage: yes Preferred Pharmacy: [email or web address] [place] Other: none Primary Care Provider: Lovely Vicente MD [phone] Patient/Caregiver Goals of Treatment:live and get my breath back Potential Needs for Transition of Care: Rehab/SNF: [facility] Home Health: DME: TBD Dialysis: na Community Resources: available Transportation: yes Other: none Anticipated Barriers to Discharge/Special Considerations: none Plan: Likely SNF Rehab before home A member of the Care Management team will continue to monitor progress, follow for continuity of care and assist with transition of care planning. ERLIN Weiss Pager: [phone] Consult Note - Katerin Azul RN - [...] patient W/E coverage, Dr. Jeane Tatum, pager [phone] Katerin Azul APRN Endocrinology Diabetes Management Pager [phone] Plan of Care - Stephanie Godoy RN [...] Operative Note Patient Name: Gregory Hoang : [id number] MR#: [id number] Case Date: 07/07/2017 Surgeon: Surgeon(s) and Role: * Yuan Webber MD - Primary * Michael Drake PA - Physician Fire Systems Inspector * Linda Flores PA - Physician Fire Systems Inspector Preoperative diagnosis: 3VD Postoperative diagnosis: CAD, [...] Operative Note Patient Name: Gregory Hoang : [id number] MR#: [id number] Case Date: 07/07/2017 Surgeon: Surgeon(s) and Role: * Yuan Webber MD - Primary * Michael Drake PA - Physician Fire Systems Inspector * Linda Flores PA - Physician Fire Systems Inspector Preoperative diagnosis: 3VD Postoperative diagnosis: CAD, [...] code status: Full Code Katty Hahn, MS3 [facility] Cardiology S1 (Pager [phone]) Plan of Care - Emelia Ibarra RN [...] with other involved physicians Yuan Webber MD [phone] Med Student Progress Note - Katty Hahn [...] insulin drip - hold metformin - f/u PSYCHIATRIC ?? #Home Meds - continue levothyroxine 175mcg - CPAP at night ?? # Routine - DVT PPx: heparin drip - Diet: Healthy heart diet, NPO at midnight for CABG tomorrow - Code Status: FULL - Dispo: CVCC Katty Hahn, M3 [facility] Cardiology S1 (Pager [phone]) Plan of Care - Stephanie Godoy RN - 07/06/2017 5:00 AM EST Problem: Patient Care Overview Goal: Plan of Care Review 07/06/17 8146 Coping/Psychosocial Plan Of Care Reviewed With patient;family [...] Outcome: Ongoing (Interventions Implemented as Appropriate) 07/06/17 7316 Cardiac: ACS (Acute Coronary Syndrome) Problems Assessed [...] Cardiology Zulma Dolan MD [facility] [address] [place] [address] (Wo rk) 05/28/2022 Laboratory Appointment Lab 05/28/2022 Office Visit Cardiology Zulma Dolan MD [facility] [place] [address] Liz Poole PA [facility] [place] [address] 06/10/2022 Office Visit Dermatology Laura Scherer MD [facility] [address] [place], [place] [address] (Wo rk) Scheduled Orders Name [...] procedure are i n the results section. WARPER CREELER SCAN 07/15/2017 12:00 Res ults for this [...] f or this ([facility] [place] AM EST [...] f or this ([facility] PM EST [...] f or this ([facility] [place] [place] PM EST [...] 2017 EXAMINATION: XR CHEST PA AND LATERAL ([email or web address]) CLINICAL HISTORY: CABG x 3 TECHNIQUE: PA [...] Teague APRN IMG DX ORDERABLES SCAN DOC: WARPER CREELER (07/15/2017 12:00 AM EST) Narrative 07/15/2017 12:00 [...] 186 65 - 199 BARBARA DAVIS mg/dL [facility] LABORATORY [...] City/State/ZIP Code Phon e Number [place] [id number] [facility] [address] POCT Glucose (07/14/2017 7:52 AM EST) athologist Signature POC Glucose 126 65 - 199 [facility] mg/dL [facility]OR[facility]ORY [...] Address City/State/ZIP Code Phon e Number [address] (ABNORMAL) Prothrombin Time (07/14/2017 [...] Address City/State/ZIP Code Phon e Number [address] Potassium (07/14/2017 4:46 AM EST) athologist Signature Potassium 4.3 3.5 - 5.0 [facility] mmol/L [facility] Comment: Please note: ??Patients with [...] Address City/State/ZIP Code Phon e Number [address] POCT Glucose (07/14/2017 4:34 AM EST) athologist Signature POC Glucose 115 65 - 199 [facility] [place] mg/dL [facility] LABORATORY [...] City/[facility]/ZIP Code Phon e Number [address] POCT Glucose (07/13/2017 11:33 PM EST) athologist Signature POC Glucose 132 65 - 199 [place]BAR[place] RYAN mg/dL [facility]ORATORY [...] City/[facility]/ZIP Code Phon e Number [address] POCT Glucose (07/13/2017 9:25 PM EST) athologist Signature POC Glucose 121 65 - 199 [place] RYAN mg/dL [facility] LABORATORY [...] Address City/State/ZIP Code Phon e Number [address] POCT Glucose (07/13/2017 4:55 PM EST) P athologist Signature POC Glucose 79 65 - 199 [facility] [place] mg/dL [facility] LABORATORY [...] Address City/State/ZIP Code Phon e Number [address] POCT Glucose (07/13/2017 11:16 AM EST) P athologist Signature POC Glucose 163 65 - 199 [place]BAR[place] RYAN mg/dL [facility] LABORATORY [...] Address City/State/ZIP Code Phon e Number [address] POCT Glucose (07/13/2017 8:07 AM EST) P athologist Signature POC Glucose 96 65 - 199 [place] mg/dL [facility] Comment: Supplemental ranges: <140 mg/dL before meals <180 mg/dL all other times of the day Specimen Anatomical Collection Method Collection Time Receive d Time (Source) Location / / Volume Laterality Blood specimen 07/13/2017 8:07 AM 017 8:07 (specimen) EST AM EST uYan Webber MD POINT OF CARE TEST ORDERABLE S Performing Organization Address City/[facility]/ZIP [place] [address] (ABNORMAL) Prothrombin Time (07/13/2017 [...] Wilson APRN HEMATOLOGY ORDERABLES Performing Organization Address City/[facility]/ZIP [place] [address] (ABNORMAL) Basic Metabolic Panel (non-fasting) (07/13/2017 4:26 AM EST) P athologist Signature Glucose Lvl 95 65 - 199 [facility] mg/dL [facility] LABORATORY [...] [facility] Estimated GFR 60 >=60 [facility] Comment: The reported eGFR should be multiplied b y 1.2 for patients. The MDRD is not an appropriate measure o f renal function for patients with body mass extremes or in patients with acute kidney failure. http://Diassess/DHnkdep http://Diassess/DHMCnkf Specimen Anatomical Collection Method Collection Time Receive d Time (Source) Location / / Volume Laterality Blood specimen 07/13/2017 4:26 AM 017 4:46 (specimen) EST AM EST Resulting Agency Comment Spec In Lab Makayla Wilson APRN CHEMISTRY ORDERABLES Performing Organization Address City/[facility]/ZIP Code Phon e Number [address] POCT Glucose (07/13/2017 3:52 AM EST) P athologist Signature POC Glucose 93 65 - 199 [facility] mg/dL [facility] LABORATORY [...] Organization Address City/State/ZIP [place] [address] POCT Glucose (07/13/2017 12:21 AM EST) athologist Signature POC Glucose 80 65 - 199 [place] RYAN mg/dL [facility] LABORATORY [...] Address City/State/ZIP Code Phon e Number [address] POCT Glucose (07/12/2017 8:22 PM EST) athologist Signature POC Glucose 119 65 - 199 [facility] [place] mg/dL [facility] LABOR[facility]ORY [...] Address City/State/ZIP Code Phon e Number [address] POCT Glucose (07/12/2017 4:02 PM EST) athologist Signature POC Glucose 114 65 - 199 [facility] [place] mg/dL [facility]ATORY [...] Organization Address City/State/ZIP [place] [address] POCT Glucose (07/12/2017 11:28 AM EST) athologist Signature POC Glucose 164 65 - 199 [facility] [...] Address City/State/ZIP Code Phon e Number [address] POCT Glucose (07/12/2017 7:34 AM EST) athologist Signature POC Glucose 109 65 - 199 [facility]ORY [...] Organization Address City/State/[place] [address] (ABNORMAL) Basic Metabolic Panel (non-fasting) (07/12/2017 4:11 AM EST) athologist Signature Glucose Lvl 92 65 - 199 [facility] [...] or in patients with acute kidney failure. http://Diassess/DHnkdep http://Diassess/DHnkf Specimen Anatomical Collection Method Collection Time Receive d Time (Source) Location / / Volume Laterality Blood specimen 07/12/2017 4:11 AM 017 8:57 (specimen) EST AM EST Resulting Agency Comment Spec In Lab Makayla Katie QUINONES CHEMISTRY ORDERABLES Performing Organization Address City/State/ZIP [place] [address] (ABNORMAL) Prothrombin Time (07/12/2017 [...] Wilson APRN HEMATOLOGY ORDERABLES Performing Organization Address City/[facility]/ZIP [place] [address] Potassium (07/12/2017 4:11 AM EST) athologist Signature Potassium 3.8 3.5 - 5.0 [facility] mmol/L [facility] Comment: Please note: ??Patients with [...] Wilson APRN CHEMISTRY ORDERABLES Performing Organization Address City/[facility]/ZIP [place] [address] POCT Glucose (07/12/2017 4:10 AM EST) athologist Signature POC Glucose 90 65 - 199 [facility] mg/dL [facility] LAB[facility]ATORY [...] City/[facility]/ZIP [place] [address] POCT Glucose (07/11/2017 11:57 PM EST) athologist Signature POC Glucose 98 65 - 199 [facility] mg/dL [facility]ORY [...] Organization Address City/State/ZIP [place] [address] POCT Glucose (07/11/2017 8:32 PM EST) P athologist Signature POC Glucose 146 65 - 199 [facility] mg/dL [facility] [...] Organization Address City/State/[place] [address] XR Chest PA & [...] e xtubated, left chest tube removed, and Hilmar-Suzi catheter removed since the study. Atelectasis at [...] e xtubated, left chest tube removed, and Hilmar-Suzi catheter removed since the study. Atelectasis at [...] POC Glucose 223 (H) 65 - 199 [facility]ORY [...] City/[facility]/[place]IP [place] [address] POCT Glucose (07/11/2017 11:55 AM EST) athologist Signature POC Glucose 176 65 - 199 BARBARA RYAN mg/dL [facility]ORY [...] Organization Address City/State/Z[place] [address] POCT Glucose (07/11/2017 7:53 AM EST) athologist Signature POC Glucose 189 65 - 199 [facility] mg/dL [facility] Comment: Supplemental ranges: <140 mg/dL before meals <180 mg/dL all other times of the day Specimen Anatomical Collection Method Collection Time Receive d Time (Source) Location / / Volume Laterality Blood specimen 07/11/2017 7:53 AM 017 7:53 (specimen) EST AM EST Yuan Webber MD POINT OF CARE TEST ORDERABLE S Performing Organization Address City/[facility]/ZIP [facility] Phon e Number [address] POCT Glucose (07/11/2017 4:22 AM EST) athologist Signature POC Glucose 151 65 - 199 [facility] mg/dL [facility] Comment: Supplemental ranges: <140 mg/dL before meals <180 mg/dL all other times of the day Specimen Anatomical Collection Method Collection Time Receive d Time (Source) Location / / Volume Laterality Blood specimen 07/11/2017 4:22 AM 017 4:22 (specimen) EST AM EST Yuan Webber MD POINT OF CARE TEST ORDERABLE S Performing Organization Address City/[facility] Phon e Number [address] Potassium (07/11/2017 2:20 AM EST) athologist Signature Potassium 4.5 3.5 - 5.0 [facility] mmol/L [facility] Comment: Please note: ??Patients with [...] Address City/State/ZIP Code Phon e Number [address] POCT Glucose (07/11/2017 12:17 AM EST) athologist Signature POC Glucose 162 65 - 199 BARBARA RYAN mg/dL [facility] LABORATORY [...] City/[facility]/ZIP Code Phon e Number [address] POCT Glucose (07/10/2017 8:47 PM EST) athologist Signature POC Glucose 191 65 - 199 BARBARA RYAN mg/dL [facility] LABORATORY [...] Hospital/ZIP Code [place] [address] POCT Glucose (07/10/2017 4:06 PM EST) athologist Signature POC Glucose 131 65 - 199 [place]BAR[place] RYAN mg/dL [facility] LABORATORY [...] Organization Address City/State/ZIP [place] [address] POCT Glucose (07/10/2017 3:08 PM EST) athologist Signature POC Glucose 151 65 - 199 [place]BAR[place]HAORYAN mg/dL [facility] LABORATORY [...] Address City/State/ZIP Code Phon e Number [address] POCT Glucose (07/10/2017 2:25 PM EST) athologist Signature POC Glucose 146 65 - 199 [facility] [place] mg/dL [facility] LABORATORY [...] Address City/State/ZIP Code Phon e Number [address] POCT Glucose (07/10/2017 1:23 PM EST) athologist Signature POC Glucose 166 65 - 199 BARBARA ZHAORYAN mg/dL [facility] LABORATORY [...] Organization Address City/State/ZIP [place] [address] POCT Glucose (07/10/2017 11:52 AM EST) P athologist Signature POC Glucose 157 65 - 199 BARBAR[place] RYAN mg/dL [facility] LABORATORY [...] Address City/State/ZIP Code Phon e Number [address] POCT Glucose (07/10/2017 11:01 AM EST) athologist Signature POC Glucose 158 65 - 199 [facility] [place] mg/dL [facility] LABORATORY [...] Address City/State/ZIP Code Phon e Number [address] POCT Glucose (07/10/2017 9:54 AM EST) athologist Signature POC Glucose 160 65 - 199 [place]BARA ZHAORYAN mg/dL [facility] LABORATORY [...] Organization Address City/State/ZIP [place] [address] POCT Glucose (07/10/2017 8:58 AM EST) athologist Signature POC Glucose 183 65 - 199 BARBARA ZHAORYAN mg/dL [facility] LABORATORY [...] Organization Address City/State/Z[place] [address] POCT Glucose (07/10/2017 8:01 AM EST) athologist Signature POC Glucose 173 65 - 199 BARBARA RYAN mg/dL [facility] LAB[facility]ORY [...] Address City/State/ZIP Code Phon e Number [address] POCT Glucose (07/10/2017 7:05 AM EST) athologist Signature POC Glucose 166 65 - 199 BARBARA RYAN mg/dL [facility] LABORATORY [...] Address City/State/ZIP Code Phon e Number [address] POCT Glucose (07/10/2017 6:00 AM EST) P athologist Signature POC Glucose 162 65 - 199 [facility] mg/dL [facility] LABORATORY [...] Organization Address City/State/[place] [address] (ABNORMAL) Differential, Automated (07/10/2017 4:28 AM EST) Patholo gist Method Time Signature Neutrophils % 87.9 % [facility] LABORATORY Neutr Abs (ANC) 10.70 (H) 1.70 - [facility] 6.10 [facility] x10(3)/[facility] L LABORATORY Lymphocytes % 3.9 % [facility] Lymphocytes Abs 0.5 (L) 0.9 - 3.2 [facility] x10(3)/[facility] LABORATORY Monocytes % 7.0 % [facility] Monocyte Abs 0.8 0.3 - 0.9 [facility] x10(3)/[facility] LABORATORY Eosinophils % 0.3 % [facility] Eosinophils Abs 0.0 0.0 - 0.4 [facility] x10(3)/[facility] LABORATORY Basophils % 0.2 % [facility] Basophils Abs 0.0 0.0 - 0.1 [facility] x10(3)/[facility] LABORATORY Immature Gran % [...] Organization Address City/State/[place] [address] (ABNORMAL) Hemogram (07/10/2017 4:28 AM EST) Analysis Performed At Patho logist Time Signature WBC 12.2 (H) 4.0 - 9.5 [facility] x10(3)/[facility] LABORATORY RBC 3.31 (L) 4.58 - [facility] 5.54 [facility] x10(6)/[facility] LABORATORY Hemoglobin 9.8 (L) 13.7 - [facility] 16.5 gm/dL [facility] LAB[facility]ATORY Hematocrit 30.0 (L) 40.5 - [facility] 48.5 % [facility] MCV 90.6 82.9 - [facility] 93.1 [facility] LABORATORY MCH 29.6 27.5 - [facility] 32.1 pg [facility] LAB[facility]ATORY MCHC 32.7 32.0 - [facility] 35.7 gm/dL [facility] LAB[facility]ORY Platelets 135 (L) 145 - 357 [facility] x10(3)/[facility] LABORATORY RDWSD 50.8 (H) 36.0 - [facility] 45.0 [facility] LABORATORY RDWCV 15.4 (H) 11.4 - [facility] 13.8 % [facility] LABORATORY MPV 10.0 7.6 - 12.9 [facility] LABORATORY nRBC % Auto 0.0 % [facility] nRBC Abs Auto 0.000 0.000 - [facility] 0.000 [facility] x10(3)/[facility] LABORATORY Specimen Anatomical Collection Method Collection Time Receive d Time (Source) Location / / Volume Laterality Blood specimen 07/10/2017 4:28 AM 017 4:36 (specimen) EST AM EST Resulting Agency Comment Spec In Lab Yuan Webber MD HEMATOLOGY ORDERABLES Performing Organization Address City/[facility]/ZIP [place] [address] (ABNORMAL) Basic Metabolic Panel (non-fasting) (07/10/2017 4:28 AM EST) P athologist Signature Glucose Lvl 178 65 - 199 [facility] mg/dL [facility] LABORATORY [...] [facility]ORY Estimated GFR 60 >=60 [facility] Comment: The reported eGFR should be multiplied b y 1.2 for patients. The MDRD is not an appropriate measure o f renal function for patients with body mass extremes or in patients with acute kidney failure. http://[employer]/DHnkdep http://[employer]/DHMCnkf Specimen Anatomical Collection Method Collection Time Receive d Time (Source) Location / / Volume Laterality Blood specimen 07/10/2017 4:28 AM 017 4:36 (specimen) EST AM EST Resulting Agency Comment Spec In Lab Yuan Webber MD CHEMISTRY ORDERABLES Performing Organization Address City/[facility]/ZIP [place] [address] POCT Glucose (07/10/2017 4:26 AM EST) P athologist Signature POC Glucose 176 65 - 199 [facility] mg/dL [facility] LABORATORY [...] Organization Address City/State/[place] [address] (ABNORMAL) POCT Glucose (07/10/2017 3:06 AM EST) athologist Signature POC Glucose 204 (H) 65 - 199 [facility] mg/dL [facility] LABORATORY [...] Organization Address City/State/ZIP [place] [address] (ABNORMAL) POCT Glucose (07/10/2017 2:10 AM EST) athologist Signature POC Glucose 203 (H) 65 - 199 [facility] mg/dL [facility] LABORATORY [...] Address City/State/ZIP Code Phon e Number [address] POCT Glucose (07/10/2017 1:09 AM EST) P athologist Signature POC Glucose 196 65 - 199 [place]HAORY[place] mg/dL [facility] LABORATORY [...] Address City/State/ZIP Code Phon e Number [address] POCT Glucose (07/10/2017 12:10 AM EST) athologist Signature POC Glucose 173 65 - 199 [place] RY[place] mg/dL [facility] LABORATORY [...] Address City/State/ZIP Code Phon e Number [address] POCT Glucose (07/09/2017 11:01 PM EST) athologist Signature POC Glucose 140 65 - 199 [place] RY[place] mg/dL [facility] LABORATORY [...] Organization Address City/State/ZIP [place] [address] POCT Glucose (07/09/2017 10:05 PM EST) athologist Signature POC Glucose 144 65 - 199 [facility] mg/dL [facility] LABORATORY [...] Address City/State/ZIP Code Phon e Number [address] POCT Glucose (07/09/2017 9:31 PM EST) athologist Signature POC Glucose 121 65 - 199 [place] RY[place] mg/dL [facility] LABORATORY [...] Address City/State/ZIP Code Phon e Number [address] POCT Glucose (07/09/2017 9:03 PM EST) athologist Signature POC Glucose 98 65 - 199 [place] RY[place] mg/dL [facility] LABORATORY [...] Address City/State/ZIP Code Phon e Number [address] POCT Glucose (07/09/2017 8:09 PM EST) athologist Signature POC Glucose 117 65 - 199 [place] ZHA[place] mg/dL [facility] LABORATORY [...] Organization Address City/State/ZIP [place] [address] POCT Glucose (07/09/2017 5:40 PM EST) athologist Signature POC Glucose 155 65 - 199 [facility] mg/dL [facility] LABORATORY [...] Organization Address City/State/ZIP [place] [address] POCT Glucose (07/09/2017 4:24 PM EST) athologist Signature POC Glucose 164 65 - 199 [place]BAR[place] ZHAORYAN mg/dL [facility] LABORATORY [...] Address City/State/ZIP Code Phon e Number [address] POCT Glucose (07/09/2017 3:19 PM EST) athologist Signature POC Glucose 166 65 - 199 [facility] mg/dL [facility] LABORATORY [...] Organization Address City/State/Z[place] [address] POCT Glucose (07/09/2017 2:26 PM EST) athologist Signature POC Glucose 179 65 - 199 [facility] [place] mg/dL [facility] LABORATORY [...] Organization Address City/State/[place] [address] (ABNORMAL) POCT Glucose (07/09/2017 1:29 PM EST) athologist Signature POC Glucose 210 (H) 65 - 199 [facility] mg/dL [facility] LABORATORY [...] Organization Address City/State/Z[place] [address] POCT Glucose (07/09/2017 12:20 PM EST) athologist Signature POC Glucose 172 65 - 199 [place] RY[place] mg/dL [facility] LABORATORY [...] Address City/State/ZIP Code Phon e Number [address] POCT Glucose (07/09/2017 11:24 AM EST) athologist Signature POC Glucose 156 65 - 199 [facility] [place] mg/dL [facility] LABORATORY [...] Address City/State/ZIP Code Phon e Number [address] POCT Glucose (07/09/2017 11:11 AM EST) athologist Signature POC Glucose 172 65 - 199 [place] RY[place] mg/dL [facility] LABORATORY [...] Address City/State/ZIP Code Phon e Number [address] POCT Glucose (07/09/2017 10:08 AM EST) athologist Signature POC Glucose 176 65 - 199 [place] RY[place] mg/dL [facility] LABORATORY [...] Organization Address City/State/ZIP [place] [address] POCT Glucose (07/09/2017 8:02 AM EST) P athologist Signature POC Glucose 178 65 - 199 [facility] mg/dL [facility] LABORATORY [...] Organization Address City/State/[place] [address] (ABNORMAL) BLOOD GAS 2 ARTERIAL (07/09/2017 5:37 AM EST) Analysis Performed At Patho logist Time Signature pH Art 7.36 7.35 - [facility] 7.45 [facility] LABORATORY pCO2 Art 38 35 - 45 [facility] mmHg [facility] LABORATORY pO2 Art 79 (L) 85 - 104 [facility] mmHg [facility] LABORATORY HCO3 Art 20.9 20.0 - [facility] 26.0 [facility] mmol/L [facility] LABORATORY BE Art -4.6 (L) -3.0 - 3.0 [facility] mmol/L [facility] LABORATORY Hgb Blood Gas 10.5 (L) 13.7 - [facility] 16.5 gm/dL [facility] LABORATORY O2HB Art 93.8 (L) 94.0 - [facility] 97.0 % [facility] LABORATORY COHB Art 0.3 % [facility] [...] [facility] FIO2 Art 40 % [facility] PF Ratio Art [address] [facility] LAB[facility]ORY Specimen Anatomical Collection Method Collection Time Receive d Time (Source) Location / / Volume Laterality Blood specimen 07/09/2017 5:37 AM 017 5:37 (specimen) EST AM EST Yuan Webber MD CHEMISTRY ORDERABLES Performing Organization Address City/State/[place] [address] POCT Glucose (07/09/2017 3:27 AM EST) P athologist Signature POC Glucose 192 65 - 199 [facility] mg/dL [facility] LABORATORY [...] Organization Address City/State/[place] [address] (ABNORMAL) Basic Metabolic Panel (non-fasting) (07/09/2017 2:30 AM EST) P athologist Signature Glucose Lvl 179 65 - 199 [facility] mg/dL [facility] LABORATORY [...] or in patients with acute kidney failure. [email or web address] [email or web address] Specimen Anatomical Collection Method Collection Time Receive d Time (Source) Location / / Volume Laterality Blood specimen Venous Draw / 07/09/2017 2:30 AM 2016 2:42 (specimen) Unknown EST AM EST Resulting Agency Comment Spec In Lab Yuan Webber MD CHEMISTRY ORDERABLES Performing Organization Address City/State/[place] [address] (ABNORMAL) Potassium (07/09/2017 2:30 AM EST) P athologist Signature Potassium 5.1 (H) 3.5 - 5.0 [facility] mmol/L [facility] LABORATORY Comment: Please note: ??Patients with [...] Webber MD CHEMISTRY ORDERABLES Performing Organization Address City/[facility]/ZIP [place] [address] (ABNORMAL) Hemogram (07/09/2017 2:30 AM EST) Analysis Performed At Patho logist Time Signature WBC 12.5 (H) 4.0 - 9.5 [place] RYAN x10(3)/[facility] LABORATORY RBC 3.38 (L) 4.58 - [place] RYAN 5.54 [facility] x10(6)/[facility] LABORATORY Hemoglobin 10.1 (L) 13.7 - [place] RYAN 16.5 gm/dL [facility] LABORATORY Hematocrit 30.3 (L) 40.5 - [facility] R[facility]AN 48.5 % [facility] LABORATORY MCV 89.6 82.9 - [place] R[facility]AN 93.1 [facility] LABORATORY MCH 29.9 27.5 - [place] RY[facility] 32.1 pg [facility] LABORATORY MCHC 33.3 32.0 - [facility] RYAN 35.7 gm/dL [facility] LABORATORY Platelets 127 (L) 145 - 357 [place] RYAN x10(3)/[facility] LABORATORY RDWSD 49.3 (H) 36.0 - [place] RYAN 45.0 [facility] LABORATORY RDWCV 15.2 (H) 11.4 - [facility] R[facility] 13.8 % [facility] LABORATORY MPV 9.9 7.6 - 12.9 [facility] LABORATORY nRBC % Auto 0.0 % [facility] LABORATORY nRBC Abs Auto 0.000 0.000 - BARBARA DAVIS 0.000 [facility] x10(3)/[facility] LABORATORY Specimen Anatomical Collection Method Collection Time Receive d Time (Source) Location / / Volume Laterality Blood specimen 07/09/2017 2:30 AM 017 2:41 (specimen) EST AM EST Resulting Agency Comment Spec In Lab Yuan Webber MD HEMATOLOGY ORDERABLES Performing Organization Address City/State/ZIP Code Phon e Number [address] POCT Glucose (07/09/2017 2:10 AM EST) athologist Signature POC Glucose 169 65 - 199 [facility] mg/dL [facility] LABORATORY [...] Address City/State/ZIP Code Phon e Number [address] POCT Glucose (07/09/2017 1:01 AM EST) athologist Signature POC Glucose 173 65 - 199 [facility] LABORATORY [...] Address City/State/ZIP Code Phon e Number [address] Blood culture (07/09/2017 12:40 AM EST) [facility] Method Time Signature Blood Culture No growth BARBARA DAVIS at 5 days. [facility] LABORATORY Specimen Anatomical Collection Method Collection Time Receive d Time (Source) Location / / Volume Laterality Blood specimen STRUCTURE OF RIGHT 07/09/2017 12:40 3:58 (specimen) UPPER LIMB / AM EST AM EST Unknown Resulting Agency Comment Spec In Lab Yuan Webber MD MICROBIOLOGY - BLOOD ORDERAB LES Performing Organization Address City/[facility]/ZIP Code Phon e Number [address] Blood culture (07/09/2017 12:30 AM EST) [facility] Method Time Signature Blood Culture No growth BARBARA DAVIS at 5 days. [facility] LABORATORY Specimen Anatomical Collection Method Collection Time Receive d Time (Source) Location / / Volume Laterality Blood specimen STRUCTURE OF LEFT 07/09/2017 12:30 06/25 3:59 (specimen) UPPER LIMB / AM EST AM EST Unknown Resulting Agency Comment Spec In Lab Yuan Webber MD MICROBIOLOGY - BLOOD ORDERAB LES Performing Organization Address City/[facility]/ZIP [place] [address] (ABNORMAL) Urinalysis Microscopic Exam [...] Address City/State/ZIP Code Phon e Number [address] (ABNORMAL) Urinalysis with reflex Culture (07/09/2017 12:05 AM EST) Patholo gist Method Time Signature Glucose UA Negative Negative [facility]/dL [facility] LABORATORY Protein UA 30 (A) Negative [facility] mg/dL [facility] LABORATORY Bilirubin UA Negative Negative [facility] mg/dL [facility] LABORATORY Comment: Clinical correlation required for [...] [facility] Leukocytes UA Negative Negative [facility] LABORATORY Appearance UA Hazy (A) Clear [facility] LABORATORY Spec [place] UA 1.025 1.002 - 1.030 [facility] LABORATORY Color UA Yellow Yellow [facility] LABORATORY Culture Reflexed No [facility] LABORATORY Specimen (Source) Anatomical Collection Method Collection Time Re ceived Time Location / / Volume Laterality Urine specimen 07/09/2017 12:05 7 obtained via AM EST 12:39 AM EST indwelling urinary catheter (specimen) Resulting Agency Comment Spec In Lab Yuan Webber MD URINE ORDERABLES Performing Organization Address City/State/ZIP Code Phon e Number [place] [id number] [facility] [address] Drive POCT Glucose (07/08/2017 11:01 PM EST) P athologist Signature POC Glucose 191 65 - 199 [facility] mg/dL [facility] LABORATORY [...] Organization Address City/State/ZIP [place] [address] POCT Glucose (07/08/2017 10:04 PM EST) P athologist Signature POC Glucose 198 65 - 199 [facility] mg/dL [facility] LABORATORY [...] Organization Address City/State/Z[place] [address] Prepare Albumin 5% in [...] Address City/State/ZIP Code Phon e Number [address] POCT Glucose (07/08/2017 8:28 PM EST) P athologist Signature POC Glucose 195 65 - 199 [facility] mg/dL [facility] LABORATORY [...] City/[facility]/[place]IP [place] [address] (ABNORMAL) POCT Glucose (07/08/2017 7:13 PM EST) P athologist Signature POC Glucose 220 (H) 65 - 199 [facility] mg/dL [facility] LABORATORY [...] City/[facility]/ZIP [place] [address] POCT Glucose (07/08/2017 5:04 PM EST) P athologist Signature POC Glucose 147 65 - 199 [facility] mg/dL [facility] LABORATORY [...] Organization Address City/State/ZIP [place] [address] (ABNORMAL) BLOOD GAS 2 ARTERIAL (07/08/2017 4:13 PM EST) Analysis Performed At Patho logist Time Signature pH Art 7.38 7.35 - [facility] 7.45 [facility] LABORATORY pCO2 Art 36 35 - 45 [facility] LABORATORY pO2 Art 91 85 - 104 [facility] LABORATORY HCO3 Art 20.9 20.0 - [facility] 26.0 [facility] mmol/L [facility] LABORATORY BE Art -4.2 (L) -3.0 - 3.0 [facility] mmol/L [facility] LABORATORY Hgb Blood Gas 11.7 (L) 13.7 - [facility] 16.5 gm/dL [facility] LABORATORY O2HB Art 95.1 94.0 - [facility] 97.0 % [facility] LABORATORY COHB Art 0.6 % [facility] FIO2 Art 40 % [facility] LABORATORY PF Ratio Art [address] [facility] LABORATORY Specimen Anatomical Collection Method Collection Time Receive d Time (Source) Location / / Volume Laterality Blood specimen 07/08/2017 4:13 PM 017 4:13 (specimen) EST PM EST Yuan Webber MD CHEMISTRY ORDERABLES Performing Organization Address City/State/Z[place] [address] POCT Glucose (07/08/2017 4:01 PM EST) athologist Signature POC Glucose 148 65 - 199 [facility] mg/dL [facility] LABORATORY [...] Address City/State/ZIP Code Phon e Number [address] POCT Glucose (07/08/2017 3:21 PM EST) athologist Signature POC Glucose 118 65 - 199 [facility] RYAN mg/dL [facility] LABORATORY [...] Address City/State/ZIP Code Phon e Number [address] POCT Glucose (07/08/2017 2:01 PM EST) athologist Signature POC Glucose 129 65 - 199 [facility] mg/dL [facility] LABORATORY [...] Address City/State/ZIP Code Phon e Number [address] POCT Glucose (07/08/2017 11:53 AM EST) athologist Signature POC Glucose 156 65 - 199 [facility] mg/dL [facility] LABORATORY [...] Organization Address City/State/ZIP [place] [address] POCT Glucose (07/08/2017 11:04 AM EST) athologist Signature POC Glucose 181 65 - 199 [facility] mg/dL [facility] LABORATORY [...] City/[facility]/[place]IP [place] [address] (ABNORMAL) POCT Glucose (07/08/2017 9:24 AM EST) athologist Signature POC Glucose 203 (H) 65 - 199 [facility] mg/dL [facility] LABORATORY [...] Organization Address City/State/ZIP [place] [address] APTT (07/08/2017 8:40 AM [...] Webber MD HEMATOLOGY ORDERABLES Performing Organization Address City/[facility]/[place] [address] (ABNORMAL) Prothrombin Time (07/08/2017 [...] Organization Address City/State/[place] [address] (ABNORMAL) POCT Glucose (07/08/2017 7:38 AM EST) athologist Signature POC Glucose 232 (H) 65 - 199 [facility] mg/dL [facility] LABORATORY [...] Organization Address City/State/[place] [address] (ABNORMAL) POCT Glucose (07/08/2017 7:07 AM EST) athologist Signature POC Glucose 234 (H) 65 - 199 [facility] mg/dL [facility] LABORATORY [...] Organization Address City/State/[place] [address] (ABNORMAL) POCT Glucose (07/08/2017 6:04 AM EST) athologist Signature POC Glucose 225 (H) 65 - 199 [facility]YAN mg/dL [facility] LABORATORY [...] Organization Address City/State/[place] [address] (ABNORMAL) POCT Glucose (07/08/2017 5:31 AM EST) athologist Signature POC Glucose 216 (H) 65 - 199 [facility] RYAN mg/dL [facility] LABORATORY [...] Organization Address City/State/Z[place] [address] (ABNORMAL) POCT Glucose (07/08/2017 4:52 AM EST) P athologist Signature POC Glucose 257 (H) 65 - 199 [facility] mg/dL [facility] LABORATORY [...] City/[facility]/[place] [address] (ABNORMAL) BLOOD GAS 2 ARTERIAL (07/08/2017 4:04 AM EST) Analysis Performed At Patho logist Time Signature pH Art 7.30 (L) 7.35 - [facility] 7.45 [facility] LABORATORY pCO2 Art 41 35 - 45 [facility] mmHg [facility] LABORATORY pO2 Art 83 (L) 85 - 104 [facility] mmHg [facility] LABORATORY HCO3 Art 19.6 (L) 20.0 - [facility] 26.0 [facility] mmol/L [facility] LABORATORY BE Art -6.8 (L) -3.0 - 3.0 [facility] mmol/L [facility] LABORATORY Hgb Blood Gas 12.2 (L) 13.7 - [facility] 16.5 gm/dL [facility] LABORATORY O2HB Art 93.5 (L) 94.0 - [facility] 97.0 % [facility] LABORATORY COHB Art 0.4 % [facility] Comment: Noted by instrument assembly supervisor. FIO2 Art 40 % [facility] LABORATORY PF Ratio Art [address] [facility] LAB[facility]ORY Specimen Anatomical Collection Method Collection Time Receive d Time (Source) Location / / Volume Laterality Blood specimen 07/08/2017 4:04 AM 017 4:04 (specimen) EST AM EST Daphne Shahid MD CHEMISTRY ORDERABLES Performing Organization Address City/[facility]/ZIP [place] [address] Scan, Peripheral Blood (07/08/2017 [...] Webber MD HEMATOLOGY ORDERABLES Performing Organization Address City/[facility]/ZIP [place] [address] (ABNORMAL) Differential, Automated (07/08/2017 4:00 AM EST) [facility] Method Time Signature Neutrophils % 85.4 % [facility] LABORATORY Neutr Abs (ANC) 16.07 (H) 1.70 - [facility] 6.10 [facility] x10(3)/[facility] L LABORATORY Lymphocytes % 3.5 % [facility] LABORATORY Lymphocytes Abs 0.6 (L) 0.9 - 3.2 [facility] x10(3)/[facility] LABORATORY Monocytes % 10.4 % [facility] LABORATORY Monocyte Abs 2.0 (H) 0.3 - 0.9 [facility] x10(3)/[facility] LABORATORY Eosinophils % 0.0 % [facility] LABORATORY Eosinophils Abs 0.0 0.0 - 0.4 [facility] x10(3)/[facility] LABORATORY Basophils % 0.1 % [facility] LABORATORY Basophils Abs 0.0 0.0 - 0.1 [facility] x10(3)/[facility] LABORATORY Immature Gran % [...] Abs 0.12 (H) 0.00 - 0.04 x10(3)/[facility] LABORATORY Specimen Anatomical Collection Method Collection Time Receive d Time (Source) Location / / Volume Laterality Blood specimen 07/08/2017 4:00 AM 017 4:09 (specimen) EST AM EST Resulting Agency Comment Spec In Lab Yuan Webber MD HEMATOLOGY ORDERABLES Performing Organization Address City/State/Z[place] [address] (ABNORMAL) Hemogram (07/08/2017 4:00 AM EST) Analysis Performed At Patho logist Time Signature WBC 18.8 (H) 4.0 - 9.5 [facility] x10(3)/[facility] LABORATORY RBC 4.00 (L) 4.58 - [facility] Z[facility]AN 5.54 [facility] x10(6)/[facility] LABORATORY Hemoglobin 11.9 (L) 13.7 - [facility] 16.5 gm/dL [facility] LABORATORY Hematocrit 35.9 (L) 40.5 - [facility] 48.5 % [facility] LABORATORY MCV 89.8 82.9 - [facility] 93.1 [facility] LABORATORY MCH 29.8 27.5 - [facility] 32.1 pg [facility] LABORATORY MCHC 33.1 32.0 - [facility] 35.7 gm/dL [facility] LABORATORY Platelets 232 145 - 357 [facility] x10(3)/[facility] LABORATORY RDWSD 47.6 (H) 36.0 - [facility] RYAN 45.0 [facility] LABORATORY RDWCV 14.5 (H) 11.4 - [facility] RYAN 13.8 % [facility] LABORATORY MPV 9.5 7.6 - 12.9 [facility] nRBC % Auto 0.0 % [facility] LABORATORY nRBC Abs Auto 0.000 0.000 - [facility] RYAN 0.000 [facility] x10(3)/[facility] LABORATORY Specimen Anatomical Collection Method Collection Time Receive d Time (Source) Location / / Volume Laterality Blood specimen 07/08/2017 4:00 AM 017 4:09 (specimen) EST AM EST Resulting Agency Comment Spec In Lab Yuan Webber MD HEMATOLOGY ORDERABLES Performing Organization Address City/State/Z[place] [address] (ABNORMAL) Electrolytes panel (07/08/2017 4:00 AM EST) P athologist Signature Sodium 139 135 - 145 [facility] mmol/L [facility] LABORATORY Potassium 4.7 3.5 - 5.0 [facility] mmol/L [facility] LABORATORY Comment: result rechecked-JLK Please note: [...] Organization Address City/State/[place] [address] (ABNORMAL) Cardiac Enzymes (LEB/CGP) (07/08/2017 4:00 AM EST) P athologist Signature Troponin-T 1.88 (H) 0.00 - [facility] 0.00 ng/mL [facility] LABORATORY Comment: The 99th percentile for [...] additional sample may be indicated. Reference: Third Anthony Definition of Myocardial Infarction. Journal of the [place] [employer] 2012;60:1581-98 CK, Total 413 (H) 0 - 200 unit/L [facility] LABORATORY Comment: result rechecked-JLK Specimen Anatomical Collection Method Collection Time Receive d Time (Source) Location / / Volume Laterality Blood specimen 07/08/2017 4:00 AM 017 4:09 (specimen) EST AM EST Resulting Agency Comment Spec In Lab Yuan Webber MD CHEMISTRY ORDERABLES Performing Organization Address City/[facility]/ZIP Code Phon e Number [address] (ABNORMAL) Glucose, fasting (07/08/2017 4:00 AM EST) athologist Signature Glucose 287 (H) 65 - 99 [facility] Fasting mg/dL [facility] LABORATORY Comment: ?Fasting* Glucose Interpretive C [...] of Diabetes Mellitus, Position Statement from the [place] [employer]. ??Diabete s Care, Volume 33, Supplement 1, Jul 2009 Specimen Anatomical Collection Method Collection Time Receive d Time (Source) Location / / Volume Laterality Blood specimen 07/08/2017 4:00 AM 017 4:09 (specimen) EST AM EST Resulting Agency Comment Spec In Lab Yuan Webber MD CHEMISTRY ORDERABLES Performing Organization Address City/[facility]/ZIP [facility] [place] [address] (ABNORMAL) Creatinine (07/08/2017 4:00 AM EST) Analysis Performed At Patho logist Time Signature Creatinine 1.55 (H) 0.80 - [facility] 1.50 mg/dL [facility] LABORATORY Estimated GFR 44 (L) >=60 [facility] Comment: The reported eGFR should be multiplied b y 1.2 for patients. The MDRD is not an appropriate measure o f renal function for patients with body mass extremes or in patients with acute kidney failure. http://Diassess/DHnkdep http://Diassess/DHMCnkf Specimen Anatomical Collection Method Collection Time Receive d Time (Source) Location / / Volume Laterality Blood specimen 07/08/2017 4:00 AM 017 4:09 (specimen) EST AM EST Resulting Agency Comment Spec In Lab Yuan Webber MD CHEMISTRY ORDERABLES Performing Organization Address City/[facility]/ZIP [facility] Phon e Number [address] BUN (07/08/2017 4:00 AM EST) P athologist Signature BUN 16 10 - 20 [facility] mg/dL [facility] LABORATORY Specimen Anatomical Collection Method Collection Time Receive d Time (Source) Location / / Volume Laterality Blood specimen 07/08/2017 4:00 AM 017 4:09 (specimen) EST AM EST Resulting Agency Comment Spec In Lab Yuan Webber MD CHEMISTRY ORDERABLES Performing Organization Address City/[facility]/ZIP [facility] [place] [address] (ABNORMAL) POCT Glucose (07/08/2017 3:00 AM EST) P athologist Signature POC Glucose 273 (H) 65 - 199 [facility] mg/dL [facility] LABORATORY [...] Organization Address City/State/Z[place] [address] (ABNORMAL) POCT Glucose (07/08/2017 1:57 AM EST) athologist Signature POC Glucose 288 (H) 65 - 199 [facility] mg/dL [facility] LABORATORY [...] Organization Address City/State/Z[place] [address] (ABNORMAL) POCT Glucose (07/08/2017 1:01 AM EST) athologist Signature POC Glucose 315 (H) 65 - 199 [facility] mg/dL [facility] LABORATORY [...] Organization Address City/State/Z[place] [address] (ABNORMAL) BLOOD GAS 2 ARTERIAL (07/08/2017 12:09 AM EST) athologist Signature pH Art 7.26 7.35 - [facility] (Critical) 7.45 [facility] LABORATORY Comment: Noted by instrument assembly supervisor. pCO2 Art 41 35 - 45 [...] [facility] COHB Art 0.2 % [facility] Comment: Noted by instrument assembly supervisor. FIO2 Art 40 % [facility] LABORATORY PF Ratio Art [address] [facility] Specimen Anatomical Collection Method Collection Time Receive d Time (Source) Location / / Volume Laterality Blood specimen Arterial Draw / 07/08/2017 12:09 2016 5:31 (specimen) Unknown AM EST AM EST Resulting Agency Comment Spec In Lab Samy Maldonado MD CHEMISTRY ORDERABLES Performing Organization Address City/State/Z[place] [address] (ABNORMAL) POCT Glucose (07/07/2017 10:56 PM EST) athologist Signature POC Glucose 292 (H) 65 - 199 [facility] mg/dL [facility] LABORATORY [...] Organization Address City/State/Z[place] [address] (ABNORMAL) BLOOD GAS 2 ARTERIAL (07/07/2017 10:04 PM EST) athologist Signature pH Art 7.22 7.35 - [facility] (Critical) 7.45 [facility] LABORATORY Comment: Noted by instrument assembly supervisor. pCO2 Art 42 35 - 45 [...] [facility] COHB Art 0.7 % [facility] Comment: Noted by instrument assembly supervisor. FIO2 Art 40 % [facility] LAB[facility] PF Ratio Art [address] [facility] Specimen Anatomical Collection Method Collection Time Receive d Time (Source) Location / / Volume Laterality Blood specimen 07/07/2017 10:04 7 (specimen) PM EST 10:04 PM EST Daphne Shahid MD CHEMISTRY ORDERABLES Performing Organization Address City/State/ZIP Code Phon e Number [address] (ABNORMAL) Hemoglobin (07/07/2017 10:00 PM EST) P athologist Signature Hemoglobin 12.8 (L) 13.7 - [facility] 16.5 gm/dL [facility] LABORATORY Specimen Anatomical Collection Method Collection Time Receive d Time (Source) Location / / Volume Laterality Blood specimen 07/07/2017 10:00 7 (specimen) PM EST 10:13 PM EST Resulting Agency Comment Spec In Lab Yuan Webber MD HEMATOLOGY ORDERABLES Performing Organization Address City/State/ZIP Code Phon e Number [address] (ABNORMAL) Potassium (07/07/2017 10:00 PM EST) P athologist Signature Potassium 3.4 (L) 3.5 - 5.0 [facility] mmol/L [facility] LABORATORY Comment: Please note: ??Patients with [...] Webber MD CHEMISTRY ORDERABLES Performing Organization Address City/[facility]/[place]IP [place] [address] (ABNORMAL) POCT Glucose (07/07/2017 8:49 PM EST) athologist Signature POC Glucose 241 (H) 65 - 199 [facility] mg/dL [facility] LABORATORY [...] City/[facility]/[place] [address] Prepare Albumin 5% in [...] BROWN BLOOD BANK ORDERABLES Performing Organization Address City/[facility]/[place]IP [place] [address] EKG 12 Lead (07/07/2017 7:17 PM EST) Component Value Ref Range Test Analysis Performed Pathologis t Method Time At Signature Ventricular rate 75 BPM MUSE SYSTEM Atrial Rate 75 BPM MUSE SYSTEM P-R Interval 168 ms MUSE SYSTEM QRS Duration 104 ms MUSE SYSTEM Q-T Interval 462 ms MUSE SYSTEM QTC Calculated 515 ms MUSE SYSTEM (Bezet) Calculated P [place] 52 degrees MUSE SYSTEM Calculated R [place] -40 degrees MUSE SYSTEM Calculated T [place] 39 degrees MUSE SYSTEM INTERPRETATION Normal sinus [...] pH Art 7.21 7.35 - [facility] (Critical) 7.45 [facility] LABORATORY Comment: Noted by instrument assembly supervisor. pCO2 Art 50 (H) 35 - [...] [facility]ATORY COHB Art 0.5 % [facility] Comment: Noted by instrument assembly supervisor. Please note: Patients with WBC >100,000 [...] [facility] Comment: Noted by instrument assembly supervisor. FIO2 Art 100 % [facility] LABORATORY PF Ratio Art [address] [facility] Specimen Anatomical Collection Method Collection Time Receive d Time (Source) Location / / Volume Laterality Blood specimen 07/07/2017 6:57 PM 017 6:57 (specimen) EST PM EST Daphne Shahid MD CHEMISTRY ORDERABLES Performing Organization Address City/State/[place] [address] (ABNORMAL) BLOOD GAS 2 ARTERIAL (07/07/2017 5:31 PM EST) P athologist Signature pH Art 7.29 7.35 - [facility] (Critical) 7.45 [facility] LABORATORY Comment: Noted by instrument assembly supervisor. pCO2 Art 48 (H) 35 - [...] [facility] COHB Art 0.3 % [place] [...] Organization Address City/State/Z[place] [address] Fibrinogen (07/07/2017 5:30 PM EST) P athologist Signature Fibrinogen 224 180 - 510 [facility] mg/dL [facility] LABORATORY Comment: Called by: JEET, Read [...] HEMATOLOGY ORDERABLES Performing Organization Address [facility] Phon e Number [address] APTT (07/07/2017 5:30 PM [...] Perez MD HEMATOLOGY ORDERABLES Performing Organization Address [facility] [place] [address] (ABNORMAL) Prothrombin Time (07/07/2017 [...] HEMATOLOGY ORDERABLES Performing Organization Address [facility]/ZIP [place] [address] (ABNORMAL) Hemogram (07/07/2017 5:30 PM EST) athologist Signature WBC 19.6 (H) 4.0 - 9.5 [facility] x10(3)/[facility] LABORATORY RBC 3.08 (L) 4.58 - [facility] 5.54 [facility] x10(6)/[facility] LABORATORY Hemoglobin 9.2 (L) 13.7 - [facility] 16.5 gm/dL [facility] Hematocrit 28.0 (L) 40.5 - [facility] 48.5 % [facility] LABORATORY Comment: This result has been called to MONICA WEINSTEIN LUISA by DONALD GROSSMAN on 07 07 2017 at 1759, and has been read back. MCV 90.9 82.9 - 93.1 [facility] LABORATORY MCH 29.9 27.5 - 32.1 pg [facility] LABORATORY MCHC 32.9 32.0 - 35.7 gm/dL [facility] LABORATORY Platelets 155 145 - 357 x10(3)/[facility] LABORATORY RDWSD 46.5 (H) 36.0 - 45.0 [facility] LABORATORY RDWCV 14.1 (H) 11.4 - 13.8 % [facility] LABORATORY MPV 9.5 7.6 - 12.9 [facility] LABORATORY nRBC % Auto 0.0 % [facility] LABORATORY nRBC Abs Auto 0.000 0.000 - 0.000 x10(3)/[facility] LABORATORY Specimen Anatomical Collection Method Collection Time Receive d Time (Source) Location / / Volume Laterality Blood specimen 07/07/2017 5:30 PM 017 5:34 (specimen) EST PM EST Resulting Agency Comment Spec In Lab Yifan Perez MD HEMATOLOGY ORDERABLES Performing Organization Address City/State/Z[place] [address] Prepare Platelets, Apheresis (07/07/2017 5:00 PM EST) P athologist Signature Dispensed? Yes [facility] LABORATORY Specimen Anatomical Collection Method Collection Time Receive d Time (Source) Location / / Volume Laterality Blood specimen 07/07/2017 5:00 PM 017 4:58 (specimen) EST PM EST Daphne Shahid MD BLOOD BANK ORDERABLES Performing Organization Address City/State/Z[place] [address] Platelet count (07/07/2017 4:55 PM EST) athologist Signature Platelets 177 145 - 357 [facility] x10(3)/[facility] LABORATORY Plat Immature 1.5 0.0 - 7.4 [facility] % % [facility] LABORATORY Comment: Limitation of the Immature Platelet Frac tion (IPF)-May be less reliable when the platelet count is less than 33a527/u L due to statistical imprecision. The IPF [...] in a decreased state of production. References: [employer] The Clinical Value of the Immature Platelet Fraction (IPF) in Cell Recovery Document Number [id number] 12/2010 [employer] The Role of the Imm ature Platelet Fraction (IPF) in the Differential Diagnosis of Thrombocytopen ia, Document [id number] V012/04/13 P012/06 Specimen Anatomical Collection Method Collection Time Receive d Time (Source) Location / / Volume Laterality Blood specimen 07/07/2017 4:55 PM 017 5:13 (specimen) EST PM EST Resulting Agency Comment Spec In Lab Daphne Shahid MD HEMATOLOGY ORDERABLES Performing Organization Address City/[facility]/Z[place] [address] (ABNORMAL) Hemoglobin and Hematocrit, blood (07/07/2017 4:55 PM EST) P athologist Signature Hemoglobin 9.1 (L) 13.7 - 16.5 [facility] gm/dL [facility] LABORATORY Comment: This result has been [...] Shahid MD HEMATOLOGY ORDERABLES Performing Organization Address City/[facility]/ZIP [place] [address] (ABNORMAL) BLOOD GAS 2 ARTERIAL (07/07/2017 4:38 PM EST) Analysis Performed At Patho logist Time Signature pH Art 7.37 7.35 - [facility] 7.45 [facility] LABORATORY pCO2 Art 44 35 - 45 [facility] mmHg [facility] LABORATORY pO2 Art 322 (H) 85 - 104 [facility] mmHg [facility] LABORATORY HCO3 Art 24.9 20.0 - [facility] 26.0 [facility] mmol/L [facility] LABORATORY BE Art -0.4 -3.0 - 3.0 [facility] mmol/L [facility] LABORATORY Hgb Blood Gas 10.1 (L) 13.7 - [facility] 16.5 gm/dL [facility] LABORATORY O2HB Art 98.7 (H) 94.0 - [facility] 97.0 % [facility] LABORATORY COHB Art 0.1 % [facility] Comment: Noted by instrument assembly supervisor. Note: ??Total bilirubin higher than 20 [...] Organization Address City/State/[place] [address] (ABNORMAL) BLOOD GAS 2 VENOUS (07/07/2017 4:06 PM EST) Analysis Performed At Patho logist Time Signature pH Cody 7.31 (L) 7.32 - [facility] 7.42 [facility] LABORATORY pCO2 Cody 47 41 - 51 [facility] LABORATORY pO2 [place] 53 (H) 25 - 40 [facility] LABORATORY HCO3 Cody 22.7 mmol/L [facility] LABORAT[facility] BE Cody -3.7 mmol/L [facility] Hgb Blood Gas 10.2 (L) 13.7 - [facility] 16.5 gm/dL [facility] LABORATORY O2HB [place] 81.0 % [facility] Comment: Noted by instrument assembly supervisor. Note: ??Total bilirubin higher than 20 [...] [facility] BGas Source Venous [facility] LABORATORY Specimen Anatomical Collection Method Collection Time Receive d Time (Source) Location / / Volume Laterality Blood specimen 07/07/2017 4:06 PM 017 4:06 (specimen) EST PM EST Daphne Shahid MD CHEMISTRY ORDERABLES Performing Organization Address City/State/[place] [address] (ABNORMAL) BLOOD GAS 2 ARTERIAL (07/07/2017 4:05 PM EST) Analysis Performed At Patho logist Time Signature pH Art 7.36 7.35 - [facility] 7.45 [facility] LABORATORY pCO2 Art 40 35 - 45 [facility] LABORATORY pO2 Art 282 (H) 85 - 104 [facility] LABORATORY HCO3 Art 22.1 20.0 - [facility] 26.0 [facility] mmol/L [facility] LABORATORY BE Art -3.4 (L) -3.0 - 3.0 [facility] mmol/L [facility] LABORATORY Hgb Blood Gas 10.2 (L) 13.7 - [facility] 16.5 gm/dL [facility] LABORATORY O2HB Art 98.4 (H) 94.0 - [facility] 97.0 % [facility] LABORATORY COHB Art 0.3 % [facility] Comment: Noted by instrument assembly supervisor. Note: ??Total bilirubin higher than 20 [...] Organization Address City/State/ZIP [place] [address] (ABNORMAL) BLOOD GAS 2 ARTERIAL (07/07/2017 2:29 PM EST) Analysis Performed At Patho logist Time Signature pH Art 7.43 7.35 - [facility] 7.45 [facility] LABORATORY pCO2 Art 36 35 - 45 [facility] LABORATORY pO2 Art 221 (H) 85 - 104 [facility] LABORATORY HCO3 Art 23.2 20.0 - [facility] 26.0 [facility] mmol/L [facility] LABORATORY BE Art -1.2 -3.0 - 3.0 [facility] mmol/L [facility] LABORATORY Hgb Blood Gas 13.9 13.7 - [facility] 16.5 gm/dL [facility] O2HB Art 97.8 (H) 94.0 - [facility] 97.0 % [facility] LABORATORY COHB Art 1.1 % [facility] [...] Organization Address City/State/Z[place] [address] Prepare Coag Factors (Non-Hemophilia) (07/07/2017 1:25 PM EST) P athologist Signature Dispensed? Yes [facility] LABORATORY Specimen Anatomical Collection Method Collection Time Receive d Time (Source) Location / / Volume Laterality Blood specimen 07/07/2017 1:25 PM 017 1:21 (specimen) EST PM EST Daphne Shahid MD BLOOD BANK ORDERABLES Performing Organization Address City/State/ZIP Code Phon e Number [address] Prepare RBC (07/07/2017 1:10 PM EST) athologist Signature Dispensed? Yes [facility] LABOR[facility]ORY Specimen Anatomical Collection Method Collection Time Receive d Time (Source) Location / / Volume Laterality Blood specimen 07/07/2017 1:10 PM 017 1:05 (specimen) EST PM EST Daphne Shahid MD BLOOD BANK ORDERABLES Performing Organization Address City/State/Z[place] [address] POCT Glucose (07/07/2017 11:56 AM EST) athologist Signature POC Glucose 188 65 - 199 [facility] RYAN mg/dL [facility] LABORATORY [...] Organization Address City/State/ZIP [place] [address] POCT Glucose (07/07/2017 11:05 AM EST) athologist Signature POC Glucose 168 65 - 199 [facility] LABORATORY [...] Organization Address City/State/ZIP [place] [address] POCT Glucose (07/07/2017 10:02 AM EST) P athologist Signature POC Glucose 191 65 - 199 [facility] mg/dL [facility] LABORATORY [...] Organization Address City/State/ZIP [place] [address] POCT Glucose (07/07/2017 7:53 AM EST) athologist Signature POC Glucose 178 65 - 199 [facility] mg/dL [facility] LABORATORY [...] Address City/State/ZIP Code Phon e Number [address] POCT Glucose (07/07/2017 7:03 AM EST) athologist Signature POC Glucose 188 65 - 199 [facility] mg/dL [facility] LABORATORY [...] Organization Address City/State/ZIP [place] [address] (ABNORMAL) POCT Glucose (07/07/2017 6:17 AM EST) athologist Signature POC Glucose 207 (H) 65 - 199 [facility] mg/dL [facility] LABORATORY [...] City/[facility]/ZIP Code Phon e Number [address] Differential, Automated (07/07/2017 5:15 AM EST) athologist Signature Neutrophils % 69.7 % [facility]OR[facility] Neutr Abs (ANC) 5.32 1.70 - [facility] 6.10 [facility] x10(3)/[facility] LABORATORY Lymphocytes % 16.3 % [facility] Lymphocytes Abs 1.2 0.9 - 3.2 [facility] x10(3)/[facility] LABORATORY Monocytes % 10.5 % [facility] Monocyte Abs 0.8 0.3 - 0.9 [facility] x10(3)/[facility] LABORATORY Eosinophils % 2.5 % [facility] Eosinophils Abs 0.2 0.0 - 0.4 [facility] x10(3)/[facility] LABORATORY Basophils % 0.7 % [facility] Basophils Abs 0.0 0.0 - 0.1 [facility] x10(3)/[facility] LABORATORY Immature Gran % 0.30 % [...] Melisa Gran Abs 0.02 0.00 - 0.04 x10(3)/[facility] MAR Y [facility] LABORATORY Specimen Anatomical Collection Method Collection Time Receive d Time (Source) Location / / Volume Laterality Blood specimen 07/07/2017 5:15 AM 017 5:34 (specimen) EST AM EST Resulting Agency Comment Spec In Lab Daphne Shahid MD HEMATOLOGY ORDERABLES Performing Organization Address City/State/ZIP [place] [address] (ABNORMAL) Hemogram (07/07/2017 5:15 AM EST) Analysis Performed At Patho logist Time Signature WBC 7.6 4.0 - 9.5 [facility] x10(3)/[facility] LABORATORY RBC 4.82 4.58 - [facility] 5.54 [facility] x10(6)/[facility] Hemoglobin 14.4 13.7 - [facility] 16.5 gm/dL [facility] LABORATORY Hematocrit 42.1 40.5 - [facility] 48.5 % [facility] LABORATORY MCV 87.3 82.9 - [facility] 93.1 [facility] LABORATORY MCH 29.9 27.5 - [facility] 32.1 pg [facility] LABORATORY MCHC 34.2 32.0 - [facility] 35.7 gm/dL [facility] LABORATORY Platelets 188 145 - 357 [facility] x10(3)/[facility] LABORATORY RDWSD 45.1 (H) 36.0 - [facility] 45.0 [facility] LABORATORY RDWCV 14.3 (H) 11.4 - [facility] 13.8 % [facility] LABORATORY MPV 9.4 7.6 - 12.9 [facility] LABORATORY nRBC % Auto 0.0 % [facility] LABORATORY nRBC Abs Auto 0.000 0.000 - [facility] 0.000 [facility] x10(3)/[facility] LABORATORY Specimen Anatomical Collection Method Collection Time Receive d Time (Source) Location / / Volume Laterality Blood specimen 07/07/2017 5:15 AM 017 5:34 (specimen) EST AM EST Resulting Agency Comment Spec In Lab Daphne Shahid MD HEMATOLOGY ORDERABLES Performing Organization Address City/[facility]/ZIP [place] [address] (ABNORMAL) APTT (07/07/2017 5:15 [...] Shahid MD HEMATOLOGY ORDERABLES Performing Organization Address City/[facility]/ZIP [place] [address] Magnesium (07/07/2017 5:15 AM EST) athologist Signature Magnesium 0.94 0.69 - 1.07 [facility] mmol/L [facility] LABORATORY Specimen Anatomical Collection Method Collection Time Receive d Time (Source) Location / / Volume Laterality Blood specimen 07/07/2017 5:15 AM 017 5:34 (specimen) EST AM EST Resulting Agency Comment Spec In Lab Daphne Shahid MD CHEMISTRY ORDERABLES Performing Organization Address City/[facility]/ZIP [place] [address] (ABNORMAL) Basic Metabolic Panel (non-fasting) (07/07/2017 5:15 AM EST) athologist Signature Glucose Lvl 203 (H) 65 - 199 [facility] mg/dL [facility] LABORATORY [...] or in patients with acute kidney failure. [email or web address]/DHnkdep [email or web address]/DHMCnkf Specimen Anatomical Collection Method Collection Time Receive d Time (Source) Location / / Volume Laterality Blood specimen 07/07/2017 5:15 AM 017 5:34 (specimen) EST AM EST Resulting Agency Comment Spec In Lab Daphne Shahid MD CHEMISTRY ORDERABLES Performing Organization Address City/State/Z[place] [address] (ABNORMAL) Cardiac Enzymes (LEB/CGP) (07/07/2017 5:15 AM EST) athologist Signature Troponin-T 2.07 (H) 0.00 - [facility] 0.00 ng/mL [facility] LABORATORY Comment: The 99th percentile for [...] additional sample may be indicated. Reference: Third Anthony Definition of Myocardial Infarction. Journal of the [place] [employer] 2012;60:1581-98 CK, Total 88 0 - 200 unit/L [facility] Specimen Anatomical Collection Method Collection Time Receive d Time (Source) Location / / Volume Laterality Blood specimen 07/07/2017 5:15 AM 017 5:34 (specimen) EST AM EST Resulting Agency Comment Spec In Lab Daphne Shahid MD CHEMISTRY ORDERABLES Performing Organization Address City/State/ZIP [place] [address] POCT Glucose (07/07/2017 5:01 AM EST) P athologist Signature POC Glucose 182 65 - 199 [facility] mg/dL [facility] LABORATORY [...] Address City/State/ZIP Code Phon e Number [address] POCT Glucose (07/07/2017 4:08 AM EST) P athologist Signature POC Glucose 199 65 - 199 [facility]AN mg/dL [facility] LABORATORY [...] City/[facility]/ZIP Code Phon e Number [address] POCT Glucose (07/07/2017 3:03 AM EST) athologist Signature POC Glucose 188 65 - 199 [facility] mg/dL [facility] LABORATORY [...] Organization Address City/State/ZIP [place] [address] (ABNORMAL) POCT Glucose (07/07/2017 2:08 AM EST) athologist Signature POC Glucose 200 (H) 65 - 199 [facility] RYAN mg/dL [facility] LABORATORY [...] Organization Address City/State/[place] [address] (ABNORMAL) POCT Glucose (07/07/2017 1:31 AM EST) P athologist Signature POC Glucose 209 (H) 65 - 199 [facility] mg/dL [facility] LABORATORY [...] Organization Address City/State/[place] [address] XR Chest PA or [...] COMPARISON: July 06, 2017 Procedure Note Jesús Meenndez MD - 07/07/2017 EXAMINATION: XR CHEST PA [...] Signature POC Glucose 161 65 - 199 [facility] mg/dL [facility] LABORATORY [...] City/[facility]/ZIP Code Phon e Number [address] (ABNORMAL) APTT (07/07/2017 12:00 AM EST) athologist [facility] PTT 103 (H) 25 - 35 sec [...] Organization Address City/State/ZIP [place] [address] POCT Glucose (07/06/2017 9:55 PM EST) athologist Signature POC Glucose 109 65 - 199 [facility] mg/dL [facility] LABORATORY [...] Address City/State/ZIP Code Phon e Number [address] POCT Glucose (07/06/2017 9:04 PM EST) athologist Signature POC Glucose 120 65 - 199 [facility] mg/dL [facility] LABORATORY [...] Organization Address City/State/ZIP [place] [address] POCT Glucose (07/06/2017 7:45 PM EST) athologist Signature POC Glucose 158 65 - 199 [facility] mg/dL [facility] LABORATORY [...] City/[facility]/ZIP [place] [address] Potassium (07/06/2017 7:40 PM EST) athologist Signature Potassium 3.9 3.5 - 5.0 [facility] mmol/L [facility] LABORATORY Comment: Please note: ??Patients with [...] Organization Address City/State/Z[place] [address] (ABNORMAL) Cardiac Enzymes (LEB/CGP) (07/06/2017 7:40 PM EST) athologist Signature Troponin-T 2.27 (H) 0.00 - [place] RYAN 0.00 ng/mL [facility] Comment: The 99th percentile for [...] additional sample may be indicated. Reference: Third Anthony Definition of Myocardial Infarction. Journal of the [place] [employer] 2012;60:1581-98 CK, Total 93 0 - 200 unit/L [facility] Specimen Anatomical Collection Method Collection Time Receive d Time (Source) Location / / Volume Laterality Blood specimen 07/06/2017 7:40 PM 017 7:52 (specimen) EST PM EST Resulting Agency Comment Spec In Lab Daphne Shahid MD CHEMISTRY ORDERABLES Performing Organization Address City/State/[place] [address] (ABNORMAL) POCT Glucose (07/06/2017 7:13 PM EST) P athologist Signature POC Glucose 200 (H) 65 - 199 [facility] mg/dL [facility] [...] Address City/State/ZIP Code Phon e Number [address] (ABNORMAL) APTT (07/06/2017 6:15 PM EST) athologist [facility] PTT 94 (H) 25 - 35 sec [...] Organization Address City/State/ZIP [place] [address] (ABNORMAL) POCT Glucose (07/06/2017 6:03 PM EST) athologist Signature POC Glucose 236 (H) 65 - 199 [facility] mg/dL [facility] [...] Organization Address City/State/[place] [address] (ABNORMAL) POCT Glucose (07/06/2017 5:01 PM EST) P athologist Signature POC Glucose 235 (H) 65 - 199 [place] RYAN mg/dL [facility] [...] City/[facility]/ZIP [place] [address] (ABNORMAL) POCT Glucose (07/06/2017 4:06 PM EST) athologist Signature POC Glucose 202 (H) 65 - 199 [place] RYAN mg/dL [facility] [...] Organization Address City/State/ZIP [place] [address] POCT Glucose (07/06/2017 2:59 PM EST) P athologist Signature POC Glucose 178 65 - 199 [place] RYAN mg/dL [facility] [...] City/[facility]/[place]IP [place] [address] (ABNORMAL) Cardiac Enzymes (LEB/CGP) (07/06/2017 2:10 PM EST) P athologist Signature Troponin-T 2.34 (H) 0.00 - [facility] ng/mL [facility] Comment: The 99th percentile for [...] additional sample may be indicated. Reference: Third Anthony Definition of Myocardial Infarction. Journal of the [place] [employer] 2012;60:1581-98 CK, Total 101 0 - 200 unit/L [facility] Specimen Anatomical Collection Method Collection Time Receive d Time (Source) Location / / Volume Laterality Blood specimen 07/06/2017 2:10 PM 017 2:26 (specimen) EST PM EST Resulting Agency Comment Spec In Lab Daphne Shahid MD CHEMISTRY ORDERABLES Performing Organization Address City/[facility]/ZIP [place] [address] POCT Glucose (07/06/2017 2:08 PM EST) P athologist Signature POC Glucose 192 65 - 199 [place] RYAN mg/dL [facility] [...] Address City/State/ZIP Code Phon e Number [address] POCT Glucose (07/06/2017 1:04 PM EST) athologist Signature POC Glucose 162 65 - 199 [facility] [...] Address City/State/ZIP Code Phon e Number [address] POCT Glucose (07/06/2017 12:05 PM EST) athologist Signature POC Glucose 196 65 - 199 [facility]/dL [facility] [...] Address City/State/ZIP Code Phon e Number [address] EKG 12 Lead (07/06/2017 12:00 PM EST) Component Value Ref Range Test Analysis Performed Pathologis t Method Time At Signature Ventricular rate 91 BPM MUSE SYSTEM Atrial Rate 91 BPM MUSE SYSTEM P-R Interval 140 ms MUSE SYSTEM QRS Duration 94 ms MUSE SYSTEM Q-T Interval 394 ms MUSE SYSTEM QTC Calculated 484 ms MUSE SYSTEM (Bezet) Calculated P [place] 36 degrees MUSE SYSTEM Calculated R [place] -19 degrees MUSE SYSTEM Calculated T [place] 104 degrees MUSE SYSTEM INTERPRETATION Normal sinus rhythm MUSE SYSTEM 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) ST & T wave abnormality, consider lateral ischemia Abnormal ECG When compared with ECG of 05-JUL-2017 20:39, No significant change was found Confirmed by MD Luci, Taurus Braun ([id number]) on 07/06/2017 5:07:33 PM Specimen Anatomical Collection Method Collection Time Receive d Time (Source) Location / / Volume Laterality 07/06/2017 12:00 07/06/2017 5:07 PM EST PM EST Daphne Shahid MD ECG ORDERABLES Performing Organization Address City/[facility]/ZIP Code Phon e Number MUSE SYSTEM ABORH Recheck Status (07/06/2017 12:00 PM EST) [facility] Method Time Signature ABORH Type Completed [facility] LABORATORY Specimen Anatomical Collection Method Collection Time Receive d Time (Source) Location / / Volume Laterality Blood specimen 07/06/2017 12:00 7 (specimen) PM EST 12:24 PM EST Resulting Agency Comment Spec In Lab Daphne Shahid MD BLOOD BANK ORDERABLES Performing Organization Address City/[facility]/ZIP [place] [address] Antibody screen (07/06/2017 12:00 PM EST) [facility] Method Time Signature Ab Screen Negative [facility] LABORATORY Expires at 07/09/2017 [facility] [id number] on: [facility] Specimen Anatomical Collection Method Collection Time Receive d Time (Source) Location / / Volume Laterality Blood specimen 07/06/2017 12:00 7 (specimen) PM EST 12:24 PM EST Resulting Agency Comment Spec In Lab Daphne Shahid MD BLOOD BANK ORDERABLES Performing Organization Address City/[facility]/ZIP Code Phon e Number [address] ABO/Rh Typing (07/06/2017 12:00 [...] Organization Address City/State/[place] [address] Prothrombin Time (07/06/2017 11:24 [...] Shahid MD HEMATOLOGY ORDERABLES Performing Organization Address City/[facility]/ZIP Code Phon e Number [place] [id number] (ABNORMAL) APTT (07/06/2017 11:24 [...] Address City/State/ZIP Code Phon e Number [address] POCT Glucose (07/06/2017 11:02 AM EST) athologist Signature POC Glucose 187 65 - 199 [place] RYAN mg/dL [facility] [...] Organization Address City/State/ZIP [place] [address] POCT Glucose (07/06/2017 10:18 AM EST) athologist Signature POC Glucose 193 65 - 199 [place] RYAN mg/dL [facility] [...] Organization Address City/State/ZIP [place] [address] POCT Glucose (07/06/2017 9:25 AM EST) athologist Signature POC Glucose 182 65 - 199 [place] RYAN mg/dL [facility] [...] City/[facility]/ZIP [place] [address] (ABNORMAL) Cardiac Enzymes (LEB/CGP) (07/06/2017 8:10 AM EST) athologist Signature Troponin-T 2.26 (H) 0.00 - [place] RYAN 0.00 ng/mL [facility] Comment: The 99th percentile for [...] additional sample may be indicated. Reference: Third Anthony Definition of Myocardial Infarction. Journal of the [place] [employer] 2012;60:1581-98 CK, Total 124 0 - 200 unit/L [facility] Specimen Anatomical Collection Method Collection Time Receive d Time (Source) Location / / Volume Laterality Blood specimen 07/06/2017 8:10 AM 017 8:23 (specimen) EST AM EST Resulting Agency Comment Spec In Lab Daphne Shahid MD CHEMISTRY ORDERABLES Performing Organization Address City/State/ZIP Code Phon e Number [place] Magnesium (07/06/2017 8:10 AM EST) athologist Signature Magnesium 0.84 0.69 - 1.07 [facility] mmol/L [facility] Specimen Anatomical Collection Method Collection Time Receive d Time (Source) Location / / Volume Laterality Blood specimen 07/06/2017 8:10 AM 017 8:21 (specimen) EST AM EST Resulting Agency Comment Spec In Lab Daphne Shahid MD CHEMISTRY ORDERABLES Performing Organization Address City/State/ZIP Code Phon e Number [address] (ABNORMAL) Basic Metabolic Panel (non-fasting) (07/06/2017 8:10 AM EST) athologist Signature Glucose Lvl 199 65 - 199 [facility] mg/dL [facility] [...] or in patients with acute kidney failure. http://O[employer]P Pro.[employer]ano[employer]/DHnkdep http://O[employer]P Pro.[employer]ano[employer]/DHMCnkf Specimen Anatomical Collection Method Collection Time Receive d Time (Source) Location / / Volume Laterality Blood specimen 07/06/2017 8:10 AM 017 8:21 (specimen) EST AM EST Resulting Agency Comment Spec In Lab Daphne Shahid MD CHEMISTRY ORDERABLES Performing Organization Address City/[facility]/ZIP Code Phon e Number [address] POCT Glucose (07/06/2017 7:34 AM EST) athologist Signature POC Glucose 198 65 - 199 [facility] mg/dL [facility] [...] City/[facility]/ZIP Code Phon e Number [address] POCT Glucose (07/06/2017 7:03 AM EST) athologist Signature POC Glucose 181 65 - 199 [facility] [...] City/[facility]/ZIP Code Phon e Number [address] XR Chest PA or [...] Glucose 172 65 - 199 [facility] mg/dL [facility] [...] Address City/State/ZIP Code Phon e Number [address] POCT Glucose (07/06/2017 5:08 AM EST) athologist Signature POC Glucose 154 65 - 199 [place] RYAN mg/dL [facility] [...] Address City/State/ZIP Code Phon e Number [address] POCT Glucose (07/06/2017 4:05 AM EST) athologist Signature POC Glucose 142 65 - 199 [place] RYAN mg/dL [facility] [...] Organization Address City/State/ZIP [place] [address] POCT Glucose (07/06/2017 3:00 AM EST) athologist Signature POC Glucose 116 65 - 199 [facility] RYAN mg/dL [facility]ORAT[facility] [...] City/[facility]/ZIP [place] [address] [facility] [address] Potassium (07/06/2017 2:20 AM EST) athologist Signature Potassium 3.9 3.5 - 5.0 [facility] mmol/L [facility] Comment: Please note: ??Patients with [...] Shahid MD CHEMISTRY ORDERABLES Performing Organization Address City/[facility]/ZIP Code Phon e Number [address] Differential, Automated (07/06/2017 2:20 AM EST) athologist Signature Neutrophils % 72.9 % [facility] Neutr Abs (ANC) 5.53 1.70 - [facility] 6.10 [facility] x10(3)/[facility] LABORATORY Lymphocytes % 16.4 % [facility] Lymphocytes Abs 1.2 0.9 - 3.2 [facility] x10(3)/[facility] LABORATORY Monocytes % 9.4 % [facility] Monocyte Abs 0.7 0.3 - 0.9 [facility] x10(3)/[facility] LABORATORY Eosinophils % 0.5 % [facility] Eosinophils Abs 0.0 0.0 - 0.4 [facility] x10(3)/[facility] LABORATORY Basophils % 0.4 % [facility] Basophils Abs 0.0 0.0 - 0.1 [facility] x10(3)/[facility] LABORATORY Immature Gran % 0.40 % [...] - 0.04 x10(3)/[facility] MAR Y [facility] Specimen Anatomical Collection Method Collection Time Receive d Time (Source) Location / / Volume Laterality Blood specimen 07/06/2017 2:20 AM 017 2:33 (specimen) EST AM EST Resulting Agency Comment Spec In Lab Daphne Shahid MD HEMATOLOGY ORDERABLES Performing Organization Address City/State/[place] [address] (ABNORMAL) Hemogram (07/06/2017 2:20 AM EST) Analysis Performed At Patho logist Time Signature WBC 7.6 4.0 - 9.5 [facility] x10(3)/[facility] LABORATORY RBC 4.52 (L) 4.58 - [facility] 5.54 [facility] x10(6)/[facility] LABORATORY Hemoglobin 13.4 (L) 13.7 - [facility] 16[facility] gm/dL [facility] Hematocrit 39.7 (L) 40.5 - [facility] 48.5 % [facility] MCV 87.8 82.9 - [facility] 93.1 [facility] LABORATORY MCH 29.6 27.5 - [facility] RYAN 32.1 pg [facility] MCHC 33.8 32.0 - [facility] 35.7 gm/dL [facility] Platelets 189 145 - 357 [facility] x10(3)/[facility] LABORATORY RDWSD 45.6 (H) 36.0 - [facility] 45.0 [facility] LABORATORY RDWCV 14.3 (H) 11.4 - [facility] RYAN 13.8 % [facility] LAB[facility] MPV 9.1 7.6 - 12.9 [facility] LABORATORY nRBC % Auto 0.0 % [facility] nRBC Abs Auto 0.000 0.000 - [place] DAVIS 0.000 [facility] x10(3)/[facility] LABORATORY Specimen Anatomical Collection Method Collection Time Receive d Time (Source) Location / / Volume Laterality Blood specimen 07/06/2017 2:20 AM 017 2:33 (specimen) EST AM EST Resulting Agency Comment Spec In Lab Daphne Shahid MD HEMATOLOGY ORDERABLES Performing Organization Address City/State/ZIP Code Phon e Number [address] (ABNORMAL) APTT (07/06/2017 2:20 [...] Shahid MD HEMATOLOGY ORDERABLES Performing Organization Address City/[facility]/ZIP Code Phon e Number [address] POCT Glucose (07/06/2017 2:20 AM EST) P athologist Signature POC Glucose 115 65 - 199 [facility] mg/dL [facility] LABORATORY [...] Organization Address City/State/[place] [address] (ABNORMAL) Cardiac Enzymes (LEB/CGP) (07/06/2017 2:20 AM EST) P athologist Signature Troponin-T 2.13 (H) 0.00 - [place] RYAN 0.00 ng/mL [facility] Comment: The 99th percentile for [...] additional sample may be indicated. Reference: Third Anthony Definition of Myocardial Infarction. Journal of the [place] [employer] 2012;60:1581-98 CK, Total 129 0 - 200 unit/L [facility] Specimen Anatomical Collection Method Collection Time Receive d Time (Source) Location / / Volume Laterality Blood specimen 07/06/2017 2:20 AM 017 2:33 (specimen) EST AM EST Resulting Agency Comment Spec In Lab Daphne Shahid MD CHEMISTRY ORDERABLES Performing Organization Address City/State/[place] [address] (ABNORMAL) Hemoglobin A1c (07/06/2017 2:20 AM EST) Analysis Performed At Patho logist Time Signature Hemoglobin A1C 6.8 (H) 4.3 - 5.6 [facility] % [facility] Comment: Reference Range: 4.3 - [...] S67-84 Est Avg Gluc See note mg/dL ST [...] into estimated average glucose values. ??Diabetes Care 2008:31(8):8564-7378. Specimen Anatomical Collection Method Collection Time Receive d Time (Source) Location / / Volume Laterality Blood specimen 07/06/2017 2:20 AM 017 2:34 (specimen) EST AM EST Resulting Agency Comment Spec In Lab Daphne Shahid MD CHEMISTRY ORDERABLES Performing Organization Address City/State/[place] [address] (ABNORMAL) Lipid Panel (07/06/2017 2:20 AM EST) Patholo gist Method Time Signature Chol, Total 150 <=239 [place]A mg/dL [facility] Triglycerides 129 <=199 [facility] mg/dL [facility] HDL 32 (L) >=40 [place] mg/dL [facility] LDL Cholesterol 92 <=190 [facility] mg/dL [facility] Chol/HDL Ratio 4.7 ratio [facility] Lipid See Note BAR[place] Interpretation [facility] Comment: Lipid management should be guided by a p atient? s ASCVD risk, goals and preferences. ACC/AHA Guidelines recommend high intens ity statin if clinical ASCVD or LDL greater than or equal to 190 mg/dL. http://O&P Pro.NanoDetection Technology/ASK-TDW-Gmaucupzz Adults aged 40-75 with LDL 70-189 mg/dL should have their 10 year ASCVD risk estimated with the ACC/AHA ASCVD risk es timator http://tools.acc.org/SFXAN-Qwql-Xrxqvtsl r/ Statin should be discussed if risk [...] Organization Address City/State/[place] [address] POCT Glucose (07/06/2017 1:09 AM EST) P athologist Signature POC Glucose 121 65 - 199 [facility] mg/dL [facility] LABORATORY [...] Organization Address City/State/Z[place] [address] POCT Glucose (07/06/2017 12:06 AM EST) P athologist Signature POC Glucose 147 65 - 199 [place] RYAN mg/dL [facility] LABORATORY [...] Organization Address City/State/ZIP [place] [address] (ABNORMAL) POCT Glucose (07/05/2017 10:56 PM EST) P athologist Signature POC Glucose 200 (H) 65 - 199 [place] RYAN mg/dL [facility]ORY [...] Organization Address City/State/[place] [address] (ABNORMAL) POCT Glucose (07/05/2017 10:05 PM EST) P athologist Signature POC Glucose 225 (H) 65 - 199 [place] RYAN mg/dL [facility] LABORATORY [...] Organization Address City/State/[place] [address] (ABNORMAL) POCT Glucose (07/05/2017 9:02 PM EST) P athologist Signature POC Glucose 301 (H) 65 - 199 [facility] mg/dL [facility] LABORATORY [...] Organization Address City/State/[place] [address] XR Chest PA or [...] 474 ms MUSE SYSTEM (Bezet) Calculated P [place] 50 degrees MUSE SYSTEM Calculated R [place] -28 degrees MUSE SYSTEM Calculated T [place] 90 degrees MUSE SYSTEM INTERPRETATION Sinus tachycardia [...] (ANC) 9.08 (H) 1.70 - [facility] 6.10 [facility] x10(3)/[facility] L LABORATORY Lymphocytes % 7.0 % [facility] Lymphocytes Abs 0.7 (L) 0.9 - 3.2 [facility] x10(3)/[facility] LABORATORY Monocytes % 3.7 % [facility] Monocyte Abs 0.4 0.3 - 0.9 [facility] x10(3)/[facility] LABORATORY Eosinophils % 0.1 % [facility] Eosinophils Abs 0.0 0.0 - 0.4 [facility] x10(3)/[facility] LABORATORY Basophils % 0.2 % [facility] Basophils Abs 0.0 0.0 - 0.1 [facility] x10(3)/[facility] LABORATORY Immature Gran % [...] Abs 0.06 (H) 0.00 - 0.04 x10(3)/[facility] LABORATORY Specimen Anatomical Collection Method Collection Time Receive d Time (Source) Location / / Volume Laterality Blood specimen 07/05/2017 8:20 PM 017 8:27 (specimen) EST PM EST Resulting Agency Comment Spec In Lab Daphne Shahid MD HEMATOLOGY ORDERABLES Performing Organization Address City/State/[place] [address] (ABNORMAL) Hemogram (07/05/2017 8:20 PM EST) Analysis Performed At Patho logist Time Signature WBC 10.3 (H) 4.0 - 9.5 [facility] x10(3)/[facility] LABORATORY RBC 4.64 4.58 - [facility] 5.54 [facility] x10(6)/[facility] LABORATORY Hemoglobin 14.1 13.7 - [facility] 16.5 gm/dL [facility] LABORATORY Hematocrit 40.8 40.5 - [facility] 48.5 % [facility] LABORATORY MCV 87.9 82.9 - [facility] 93.1 [facility] LABORATORY MCH 30.4 27.5 - [place] OLIVASCK 32.1 pg [facility] LABORATORY MCHC 34.6 32.0 - [place] OLIVASCK 35.7 gm/dL [facility]ORATORY Platelets 204 145 - 357 [facility] x10(3)/[facility] LABORATORY RDWSD 46.1 (H) 36.0 - [facility] 45.0 [facility] LABORATORY RDWCV 14.5 (H) 11.4 - [facility] RYAN 13.8 % [facility] LABORATORY MPV 9.7 7.6 - 12.9 [facility] LABORATORY nRBC % Auto 0.0 % [facility] nRBC Abs Auto 0.000 0.000 - [place] ZHAORYAN 0.000 [facility] x10(3)/[facility] LABORATORY Specimen Anatomical Collection Method Collection Time Receive d Time (Source) Location / / Volume Laterality Blood specimen 07/05/2017 8:20 PM 017 8:27 (specimen) EST PM EST Resulting Agency Comment Spec In Lab Daphne Shahid MD HEMATOLOGY ORDERABLES Performing Organization Address City/State/Z[place] [address] APTT (07/05/2017 8:20 PM [...] Organization Address City/State/[place] [address] (ABNORMAL) Cardiac Enzymes (LEB/CGP) (07/05/2017 8:20 PM EST) athologist Signature Troponin-T 2.11 (H) 0.00 - [place] OLIVASCK 0.00 ng/mL [facility] Comment: The 99th percentile for [...] additional sample may be indicated. Reference: Third Anthony Definition of Myocardial Infarction. Journal of the [place] [employer] 2012;60:1581-98 CK, Total 149 0 - 200 unit/L [facility] Specimen Anatomical Collection Method Collection Time Receive d Time (Source) Location / / Volume Laterality Blood specimen 07/05/2017 8:20 PM 017 8:27 (specimen) EST PM EST Resulting Agency Comment Spec In Lab Daphne Shahid MD CHEMISTRY ORDERABLES Performing Organization Address City/State/Z[place] [address] (ABNORMAL) Magnesium (07/05/2017 8:20 PM EST) P athologist Signature Magnesium 0.68 (L) 0.69 - 1.07 [facility] mmol/L [facility] Specimen Anatomical Collection Method Collection Time Receive d Time (Source) Location / / Volume Laterality Blood specimen 07/05/2017 8:20 PM 017 8:27 (specimen) EST PM EST Resulting Agency Comment Spec In Lab Daphne Shahid MD CHEMISTRY ORDERABLES Performing Organization Address City/State/[place] [address] (ABNORMAL) Basic Metabolic Panel (non-fasting) (07/05/2017 8:20 PM EST) P athologist Signature Glucose Lvl 321 (H) 65 - 199 [facility] mg/dL [facility] LABORATORY [...] or in patients with acute kidney failure. [email or web address]/DHnkdep [email or web address]/DHMCnkf Specimen Anatomical Collection Method Collection Time Receive d Time (Source) Location / / Volume Laterality Blood specimen 07/05/2017 8:20 PM 017 8:27 (specimen) EST PM EST Resulting Agency Comment Spec In Lab Daphne Shahid MD CHEMISTRY ORDERABLES Performing Organization Address City/State/ZIP Code Phon e [place] [address] (ABNORMAL) POCT Glucose (07/05/2017 7:32 PM EST) P athologist Signature POC Glucose 296 (H) 65 - 199 [facility] mg/dL [facility] LABORATORY [...] Organization Address City/State/ZIP [place] [address] CARDIAC CATHETERIZATION (07/05/2017 6:47 PM EST) Anatomical Region Laterality Modality Other Specimen (Source) Anatomical Location Collection Method / Collectio n Time Received Time / Laterality Volume Narrative 07/05/2017 7:27 PM EST ?[facility] ? Cardiac Cathete rization/Intervention Report ? Patient Name: Natalya, Gregory ? Procedure Date: 07/05/2017 ? A #: [id number] ? Primary Physician: Clarisa, Jet T ? Case #: [id number] ? File Name: [id number] ? Catheterization Order Number: [id number] ? [facility] ? Final Report [place], [place] ? Patient Name: ? Gregory Natalya ?ID#: [id number] ? : ?1945 ? Procedure Date: ? [...] presented with: non -STEMI (w/i 7 days). [place] ?[employer] Society angina c lass was IV. [...] Gregory Hoang Procedure Date: 07/05/2017 A #: [id number] Primary Physician: Jet Mckenna Case #: [id number] File Name: [id number] Catheterization Order Number: [id number] [facility] Final Report [place], [place] Patient Name: Gregory Hoang ID#: [id number] : 1945 Procedure Date: July 05, [...] presented with: non-STEMI ( w/i 7 days). [place] [employer] angina class was IV. No [...] Mccollum ? (Age): 1945(72y) Med Rec#: ? [id number] ?Sex: ?M ? Site Loc: ? [facility] ?Ht / Wt: ??173(cm)/86(kg) Pt. Loc: ?CCU ? BSA: ?2 Study Date: ?? 07/05/2017 ?Pt. Type: Inpatient Tape: ? Referring: Daphne Shahid ([id number]) Referring: MANDA ALCANTAR Reading: Blade Preston ([id number]) Keg Varnisher: Dayami Paula BA, [facility] [...] E-wave Vmax ?0.8 ?m/sec ? MV deceleration [id number] ?msec ? MV A-wave Vmax ?0.8 ?m/sec [...] ? Mid-Inferior ?Akinetic ? Mid-Inferoseptal ?Hypokinetic ? Mcdermott-Septal ? Akinetic ? Mcdermott-Anterior ? Hypokinetic ? Mcdermott-Lateral ?Hypokinetic ? Mcdermott-Inferior ? Akinetic ? Mcdermott-Tip ?Akinetic ? This report has been electronically sign ed by: _ Blade Preston MD ? 07/06/2017 08 :53:15 Images reviewed and interpretation verif ied [facility] Cardiac Ultrasound Laboratory Procedure Note Blade Preston MD - 07/06/2017Formatt ing of this note might be different from the original. Procedure: Transthoracic Echocardiogram Patient: NATALYA MCBRIDE(Age): [birth year]72y) Med Rec#: [id number] Sex: M Site Loc: [facility] Ht / Wt: 173(cm)/86(kg) Pt. Loc: CCU BSA: 2 Study Date: 07/05/2017 Pt. Type: Inpatie nt Tape: Referring: Daphne Shahid ([id number]) Referring: MANDA ALCANTAR Reading: Blade Preston ([id number]) Keg Varnisher: Dayami Paula BA, [facility] [...] MV E-wave Vmax 0.8 m/sec MV deceleration [id number] msec MV A-wave Vmax 0.8 m/sec MV [...] Hypokinetic Mid-Posterolateral Hypokinetic Mid-Inferior Akinetic Mid-Inferoseptal Hypokinetic Mcdermott-Septal Akinetic Mcdermott-Anterior Hypokinetic Mcdermott-Lateral Hypokinetic Mcdermott-Inferior Akinetic Mcdermott-Tip Akinetic This report has been electronically sign ed by: _ Blade Preston MD 07/06/2017 08:53:15 Images reviewed and interpretation verif ied [facility] Cardiac Ultrasound Laboratory Daphne Shahid MD ECHO ORDERABLES Differential, Automated (07/05/2017 4:55 PM EST) athologist Signature Neutrophils % 77.0 % [facility] LABORATORY Neutr Abs (ANC) 5.26 1.70 - [facility] 6.10 [facility] x10(3)/[facility] LABORATORY Lymphocytes % 13.3 % [facility] Lymphocytes Abs 0.9 0.9 - 3.2 [facility] x10(3)/[facility] LABORATORY Monocytes % 8.2 % [facility] Monocyte Abs 0.6 0.3 - 0.9 [facility] x10(3)/[facility] LABORATORY Eosinophils % 0.7 % [facility] Eosinophils Abs 0.0 0.0 - 0.4 [facility] x10(3)/[facility] LABORATORY Basophils % 0.4 % [facility] Basophils Abs 0.0 0.0 - 0.1 [facility] x10(3)/[facility] LABORATORY Immature Gran % 0.40 % [...] - 0.04 x10(3)/[facility] LABORATORY Specimen Anatomical Collection Method Collection Time Receive d Time (Source) Location / / Volume Laterality Blood specimen 07/05/2017 4:55 PM 017 5:24 (specimen) EST PM EST Resulting Agency Comment Spec In Lab Daphne Shahid MD HEMATOLOGY ORDERABLES Performing Organization Address City/State/ZIP [place] [address] (ABNORMAL) Hemogram (07/05/2017 4:55 PM EST) Analysis Performed At Patho logist Time Signature WBC 6.8 4.0 - 9.5 [facility] x10(3)/[facility] LABORATORY RBC 4.67 4.58 - [facility] 5.54 [facility] x10(6)/[facility] LABORATORY Hemoglobin 14.0 13.7 - [facility] 16.[facility] gm/dL [facility] LABORATORY Hematocrit 41.0 40.5 - [facility] 48.5 % [facility] LABORATORY MCV 87.8 82.9 - [facility] 93.1 [facility] LABORATORY MCH 30.0 27.5 - [facility] RYAN 32.1 pg [facility] LABORATORY MCHC 34.1 32.0 - [facility] 35.7 gm/dL [facility] LABORATORY Platelets 197 145 - 357 [facility] x10(3)/[facility] LABORATORY RDWSD 46.4 (H) 36.0 - [facility] 45.0 [facility] LABORATORY RDWCV 14.5 (H) 11.4 - [facility] RYAN 13.8 % [facility] LABORATORY MPV 9.7 7.6 - 12.9 [facility] LABORATORY nRBC % Auto 0.0 % [facility] LABORATORY nRBC Abs Auto 0.000 0.000 - [facility] 0.000 [facility] x10(3)/[facility] LABORATORY Specimen Anatomical Collection Method Collection Time Receive d Time (Source) Location / / Volume Laterality Blood specimen 07/05/2017 4:55 PM 017 5:24 (specimen) EST PM EST Resulting Agency Comment Spec In Lab Daphne Shahid MD HEMATOLOGY ORDERABLES Performing Organization Address City/State/Z[place] [address] (ABNORMAL) Cardiac Enzymes (LEB/CGP) (07/05/2017 4:55 PM EST) athologist Signature Troponin-T 1.69 (H) 0.00 - [facility] 0.00 ng/mL [facility] LABORATORY Comment: The 99th percentile for [...] additional sample may be indicated. Reference: Third Anthony Definition of Myocardial Infarction. Journal of the [place] [employer] 2012;60:1581-98 CK, Total 191 0 - 200 unit/L [facility] LABORATORY Specimen Anatomical Collection Method Collection Time Receive d Time (Source) Location / / Volume Laterality Blood specimen 07/05/2017 4:55 PM 017 5:56 (specimen) EST PM EST Resulting Agency Comment Spec In Lab Daphne Shahid MD CHEMISTRY ORDERABLES Performing Organization Address City/[facility]/ZIP [place] [address] (ABNORMAL) pro-Brain Natriuretic Peptide (07/05/2017 4:55 PM EST) athologist Signature ProBNP 1,598 (H) <=125 [facility] pg/mL [facility] LABORATORY Specimen Anatomical Collection Method Collection Time Receive d Time (Source) Location / / Volume Laterality Blood specimen 07/05/2017 4:55 PM 017 5:24 (specimen) EST PM EST Resulting Agency Comment Spec In Lab Daphne Shahid MD CHEMISTRY ORDERABLES Performing Organization Address City/[facility]/ZIP Code Phon e Number [address] Magnesium (07/05/2017 4:55 PM EST) athologist Signature Magnesium 0.78 0.69 - 1.07 [facility] mmol/L [facility] LABORATORY Specimen Anatomical Collection Method Collection Time Receive d Time (Source) Location / / Volume Laterality Blood specimen 07/05/2017 4:55 PM 017 5:24 (specimen) EST PM EST Resulting Agency Comment Spec In Lab Daphne Shahid MD CHEMISTRY ORDERABLES Performing Organization Address City/[facility]/ZIP [place] [address] (ABNORMAL) Basic Metabolic Panel (non-fasting) (07/05/2017 4:55 PM EST) athologist Signature Glucose Lvl 230 (H) 65 - 199 [facility] mg/dL [facility] LABORATORY [...] or in patients with acute kidney failure. [email or web address] [email or web address] Specimen Anatomical Collection Method Collection Time Receive d Time (Source) Location / / Volume Laterality Blood specimen 07/05/2017 4:55 PM 017 5:24 (specimen) EST PM EST Resulting Agency Comment Spec In Lab Daphne Shahid MD CHEMISTRY ORDERABLES Performing Organization Address City/[facility]/[place]IP [place] [address] (ABNORMAL) APTT (07/05/2017 4:55 [...] Organization Address City/State/[place] [address] (ABNORMAL) POCT Glucose (07/05/2017 4:53 PM EST) P athologist Signature POC Glucose 208 (H) 65 - 199 [facility] LABORATORY [...] Address City/State/ZIP Code Phon e Number [address] EKG 12 Lead (07/05/2017 4:32 PM EST) Component Value Ref Range Test Analysis Performed Pathologis t Method Time At Signature Ventricular rate 97 BPM MUSE SYSTEM Atrial Rate 97 BPM MUSE SYSTEM P-R Interval 148 ms MUSE SYSTEM QRS Duration 96 ms MUSE SYSTEM Q-T Interval 364 ms MUSE SYSTEM QTC Calculated 462 ms MUSE SYSTEM (Bezet) Calculated P [place] 48 degrees MUSE SYSTEM Calculated R [place] -33 degrees MUSE SYSTEM Calculated T [place] 98 degrees MUSE SYSTEM INTERPRETATION Normal sinus [...] Denice Jacobson, VAMSI)[id number] (Not Given - Provider: Mryna Young, VAMSI - Reason: Patient/family refused) 5 [...] documented in this encounter Care Teams Store Receiving Specialist Relationship Specialty Start Date End Date Lovely Vicente MD PCP - General 04/16/[address] [place] [address] [address] [place] [address] documented as of this encounter
--- OUTSIDE RECORDS SUMMARY | 2022-05-08 02:29 | XMS_ITS | Encounter Summary ---
:1945 [place] [address] Care Team Providers Name Role Phone Lovely Vicente MD Primary Care Provider Reason for Visit Auth/Cert Specialty Diagnoses / Procedures Referred By Contact Refer red To Contact Diagnoses STEMI (ST elevation myocardial infarction) NSTEMI STEMI Procedures CARDIAC CATHETERIZATION NAYE IPI Referral ID Status Reason Start Date Expiration Date Visits Requ ested Visits Authorized [id number] 1 1 Encounter Details Date Type Department Care Team Description 07/05/2017 Surgery Pediatric Speech Therapist Jet Guan, CARDIAC CATHETERIZATION [facility] [place] [address] CARDIOLOGY DEPT. [phone] [place], [place] [address] (Wo rk) Social History Tobacco [...] this encounter Discharge Summaries Martha Teague S, TIMBER TRIMMER - 07/14/2017 9:38 AM EST Inpatient - Discharge Summary Patient Name: Gregory Hoang Patient Age: 72 y.o. Birthdate: 1945 Language: [place] Citizen Race: White Ethnicity: Not nor Admit Date: [...] , @ 1:20p Patient to follow-up with Bag Cutter/heart failure team in one week. An appointment will be made for you. You may call [phone] Patient to follow-up with Cardiac Surgery, Dr. Yuan Webber, in ~ 4 weeks with CXR, EKG. Inpatient Provider Contact Information: [facility] Section of Cardiac Surgery [facility] [place], [place] [address] FAX [phone] Discharge Diagnoses (Hospital Problems) Primary Diagnoses: CAD [...] by Manny Mcknight MD at [facility] OR ??? PRO CABG, ARTERIAL, SINGLE N/A 07/07/2017 @CABG, USING ARTERIAL GRAFT;SINGLE ARTERIAL GRAFT (WRVU 33.75) performed by Yuan Webber MD at [facility] OR ??? PRO CABG, ARTERY-VEIN, TWO N/A 07/07/2017 @CABG, TWO VENOUS GRAFTS & ARTERIAL GRAFT (WRVU 7.93) performed by Yuan Webber MD at [facility] OR ??? PRO COLONOSCOPY, REMV LESN, SNARE 01/16/2014 COLONOSCOPY, POLYPECTOMY, REMOVAL LESION BY SNARE performed by Nohemi Jaimes MD at [facility] ENDOSCOPY ??? PRO ENDOSCOPY W/VIDEO-ASST VEIN HARVEST, CABG Right 07/07/2017 ENDOSCOPIC HARVEST VEIN(S) FOR CABG (WRVU 0.31) performed by Yuan Webber MD at [facility] OR ??? PRO THYROIDECTOMY 03/28/2013 THYROIDECTOMY, TOTAL OR COMPLETE performed by Manny Mcknight MD at [facility] OR Prior To Admission Medications Prescriptions Prior to Admission Medication Sig Dispense Refill Last Dose ??? levothyroxine (SYNTHROID) 175 mcg Tablet Take 1 tablet by mouth daily. 90 tablet 3 07/05/2017 [id number] ??? ascorbic acid, vitamin C, (VITAMIN C) [...] he was taken emergently to the director geophysical laboratory for an ongoing STEMI. An IABP [...] not take or discontinue any prescription or bazv-ruk-ivilmne medications without asking your doctor or pharmacist [...] your insulin doses adjusted. [facility] Endocrine clinic office Discharge Instructions: Call your doctor if: You have a fever of greater than 101 degrees, shaking chills, if you develop redness or drainage from your incision sites, or if you have questions. Please call your surgeon's office if you have any discharge or drainage from your chest incision. Your surgeon, Dr. Yuan Webber and/or the Cardiac Surgery Physician [facility] Team may be reached at . Weight: [...] Dr. Yuan Webber. You may use a [place] Track or treadmill but avoid any pulling [...] with the surgeon. Do not ride motorcycles, [employer] tractors or horses. Avoid the use of [...] , @ 1:20p Patient to follow-up with Bag Cutter/heart failure team in one week. Appointment will be made for you. You may call [phone] Patient to follow-up with Cardiac Surgery, Dr. Yuan Webber, in ~ 4 weeks with CXR, EKG. Cardiac Rehabilitation: Gregory Hoang was seen today regarding participation in the outpatient Phase 2 Cardiac Rehabilitation at [facility]. The patient agrees to a referral to this program. The referral will be sent at discharge and the patient should be contacted by the Program within 1- 2 weeks from discharge. ?? Future Appointments and Orders Future Appointments Provider Department Dept Phone 09/07/2017 3:00 PM LAB, [facility] L Lab 3L [facility] [phone] 09/07/2017 4:00 PM Luz Prescott MD Endocrinology at [facility] [phone] Future Orders Complete By Expires EKG 12 Lead [EKG1 Custom] 08/14/2017 02/13/2018 Process Instructions: Scheduling Instructions: Questions: Which DH location will this be performed?: [facility] Is a rhythm strip needed?: No If EKG Reason is Pre-op Evaluation, indicate diagnosis for surgery.: XR Chest PA & Lateral (Generic) [17322 [id number] Custom] 08/14/2017 02/13/2018 Process Instructions: Scheduling Instructions: Questions: Where will study be performed?: [facility] Portable exam?: Reason for exam and clinical history: CABG x 3 Other pertinent information: Stat read required?: Date of injury if applicable: Requested Time: Referral to Cardiac Rehab [FYM935 Custom] As directed Process Instructions: If no progress note charted, please enter Clinical details in comments. Scheduling Instructions: Questions: My question or request is: s/p CABG. Cardiac rehab at [facility] Referral to Home Health - at DISCHARGE [CZQ4608 CPT(R)] As directed Process Instructions: Scheduling Instructions: Comments: DOCUMENTATION FOR VNA SERVICES (INCLUDING THOSE PATIENTS WITH MEDICARE COVERAGE REQUIRING HOME VNA SERVICES AND/OR HOSPICE SERVICES) PATIENT'S LOCATION: Gregory Hoang [address] [place] [address] [place] [address] (home) Telephone Information: Press Tender Long Goods's Name: self In discussion with the attending physician, it is certified that this patient is under their care and that they, or a Nurse Practitioner, or Physician [facility] who is working directly with them, had [...] [facility] ([facility] [place] [employer]-is in [place]) PHONE: [phone] FAX: [phone] RN orders: Cardiopulmonary assessment, incisional assessment, assess vital signs, assessment of rehab progress, medication management and effectiveness, home safety evaluation. Please draw INR if indicated and send result to:Dr Vicente [phone] PT ORDERS: Continue rehab for endurance, gait stability and strength with mobility and transfers. Home safety evaluation. Home exercise program if appropriate. Start of Care Date:24-48 hours after discharge SPECIAL INSTRUCTIONS: For any follow up questions, needs, or issues please call the Cardiac Surgery Office at [phone] FOR MEDICARE ONLY: (please delete this section [...] OR AFTER 07/17/2017 Signed: Martha Teague APRN [facility] Section of Cardiac Surgery [facility] [place], [place] [address] FAX [phone] Date: 07/14/2017 CC: MD Ivania Cr Betsy, PA [address] [place] [phone] documented in this encounter Discharge Instructions Discharge [...] your insulin doses adjusted. [facility] Endocrine clinic office Patient InstructionsStMartha mcdonald APRN [...] not take or discontinue any prescription or pamc-niu-gnjiypd medications without asking your doctor or pharmacist [...] your insulin doses adjusted. [facility] Endocrine clinic office ? Discharge Instructions: ?? Call your doctor if: You have a fever of greater than 101 degrees, shaking chills, if you develop redness or drainage from your incision sites, or if you have questions. Please call your surgeon's office if you have any discharge or drainage from your chest incision. Your surgeon, Dr. Yuan Webber and/or the Cardiac Surgery Physician [facility] Team may be reached at . ?? [...] Dr. Yuan Webber. You may use a [place] Track or treadmill but avoid any pulling [...] with the surgeon. Do not ride motorcycles, [employer] tractors or horses. Avoid the use of [...] @ 1:20p ?? Patient to follow-up with Bag Cutter/heart failure team in one week. An appointment has been made for you, you can call [phone] ?? Patient to follow-up with Cardiac Surgery, Dr. Yuan Webber, in ~ 4 weeks with CXR, EKG. ? Cardiac Rehabilitation: Gregory Hoang??was seen today regarding participation in the outpatient Phase 2 Cardiac Rehabilitation at [facility]. ?? The patient agrees to a referral to this program.? The referral will be sent at discharge and the patient should be contacted by the Program within 1- 2 weeks from discharge. ? Future Appointments and Orders Future Appointments Provider Department Dept Phone ?? 09/07/2017 3:00 PM LAB, THREE L Lab 3L [facility] [phone] ?? 09/07/2017 4:00 PM Luz Prescott MD Endocrinology at [facility] [phone] Future Orders Complete By Expires ?? EKG 12 Lead [EKG1 Custom] 08/14/2017 02/13/2018 ?? Process Instructions: ? Scheduling Instructions: ? Questions: ? Which location will this be performed?: [facility] ?? Is a rhythm strip needed?: No ?? If EKG Reason is Pre-op Evaluation, indicate diagnosis for surgery.: ?? XR Chest PA & Lateral (Generic) [[id number] Custom] 08/14/2017 02/13/2018 ?? Process Instructions: ? Scheduling Instructions: ? Questions: ? Where will study be performed?: [facility] ?? Portable exam?: ?? Reason for exam and clinical history: CABG x 3 ?? Other pertinent information: ?? Stat read required?: ?? Date of injury if applicable: ?? Requested Time: ?? Referral to Cardiac Rehab [QAC335 Custom] As directed ? Process Instructions: ?? If no progress note charted, please enter Clinical details in comments. ?? Scheduling Instructions: ? Questions: ? My question or request is: s/p CABG. Cardiac rehab at [facility] ? Arrangements for VNA/home care: [...] - 07/14/2017 2:34 PM EST The patient/customer development representative has been provided a list of Home Health Agencies/DME vendors which serve their preferred geographic area. A letter describing our affiliations was reviewed with them and theywere educated about their right to choose where referrals are placed. Patient requests referral to [facility]. PHONE: [phone] FAX: [phone] Expected date of discharge: 07/14 Referral routed to the Mail Manager for matching with agency/vendor and to [...] [phone] Results for GREGORY OHANG ( ) as of 07/14/2017 11:09 Ref. [...] your insulin doses adjusted. [facility] Endocrine clinic office Kathie Carrera APRN [facility] Endocrinology Diabetes Management Pager [phone] 20 minutes of this 35 minute visit was spent with the patient in counseling on diabetes and treatment plan, reviewing all glucose and insulin data as well as relevant laboratory results with the patient, and coordination of care on the inpatient unit including nursing and primary team. Zulma Andres RN - 07/14/2017 10:30 AM EST The patient/customer development representative has been provided a list of Home Health Agencies/DME vendors which serve their preferred geographic area. A letter describing our affiliations was reviewed with them and theywere educated about their right to choose where referrals are placed. Patient requests referral to : Yasmani Munguia ([facility] [place] [employer]-is in [place]) PHONE: [phone] FAX: [phone]. Expected date of discharge: 07/14/17 Referral routed to the Mail Manager for matching with agency/vendor and to [...] hours. If BG remains greater than 240, xcxxyf78 units (no more than three times) &??call [...] follow Katerin Azul APRN [facility] Endocrinology Diabetes Management Pager [phone] 15 minutes of this 25 minute visit [...] of infiltration/extravasation Discussed plan of care with VACATION PLANNER and RN. Elevate exrtemity and apply [...] measuring tape and identifier in the photo) CANCER PROGRAM COORDINATOR CARING FOR THIS PATIENT WILL CONTINUE TO [...] measuring tape and identifier in the photo) CANCER PROGRAM COORDINATOR CARING FOR THIS PATIENT WILL CONTINUE TO [...] regard to both infiltrates addressed by this specifications writer.All of Mr. Hoang's responses were entirely appropriate. Images of infiltrates attached here. Martha Sharp APRN - 07/13/2017 8:01 AM EST Cardiac Surgery Progress Note: ID: [id number] 72 year old male POD#6 s/p CABGx3 [...] ?? I have met with the patient/customer development representative to discuss discharge planning needs. I have provided the [facility], Office of Care Management letter from the [place] Scientist pertaining to rehab referrals. I have also provided a letter describing our affiliations within the [facility] and educated them about their right to choose where referrals are placed. ?? I reviewed the different levels of rehab including SNF, swing, acute and LTAC with the patient/customer development representative. ?? The patient/customer development representative has been provided a list of facilities within their preferred geographic area. ?? I have requested that the patient/customer development representative provide at least three choices for referral. ?? The patient/customer development representative have requested referrals to: ?? 1. . ?? 2. [facility] ?? 3. More to be entered ?? Expected date of discharge: 07/14 Note routed to Mail Manager who will communicate referrals to facilities [...] hours. If BG remains greater than 240, vvewzg04 units (no more than three times) & [...] follow Katerin Azul APRN [facility] Endocrinology Diabetes Management Pager [phone] 20 minutes of this 35 minute visit was spent with the patient in counseling on diabetes and treatment plan, reviewing all glucose and insulin data as well as relevant laboratory results with the patient, and coordination of care on the inpatient unit including nursing and primary team. Makayla Stevenson APRN - 07/12/2017 9:52 AM EST Cardiac Surgery Progress Note: ID: [id number] 72 year old male POD#5 s/p CABGx3 [...] AM EST Cardiac Surgery Progress Note: ID: [id number] 72 year old male POD#4 s/p CABGx3 [...] hours. If BG remains greater than 240, ajrgpv80 units (no more than three times) & [...] AM EST Cardiac Surgery Progress Note: ID: [id number] 72 year old male POD#3 s/p CABGx3 [...] Gas) No results found for: PHART, PO2ART, ZSZ1TBY Assessment/Plan: 72 year old male POD#3 s/p [...] Mami Thao - 07/09/2017 6:29 PM EST [employer] Oven Tender Encounter Note Patient Name: Gregory Hoang : [id number] MR#: [id number] Admit Date: 07/05/2017 4:20 PM Hospital Day 4 days Narrative: Patient was sitting in chair, hugging heart pillow, opened his eyes, nodding to come into room Assessment: Patient was sleepy. Intervention and Outcome: Introduced facility assistant services and patient reached his hand out in appreciation. Follow-up: [employer] Oven Tender remains available for support. Time in [...] 10:45 AM EST Report given to staff educator to cover care Maddison Cee PA - 07/09/2017 9:00 AM EST Cardiac Surgery Progress Note: ID: [id number] 72 year old male POD#2 s/p CABGx3 [...] when IABP d/c'ed. Gretchen Carolina, PT Pager [phone] Maddison Cee PA - 07/08/2017 11:27 AM EST Cardiac Surgery Progress Note: ID: [id number] 72 year old male POD#1 s/p CABGx3 [...] in place in R femoral. No hematoma. GAMING MANAGER- Intact Psych- Anxious Skin- Dry, no [...] intact. IABP in place in R femoral. GAMING MANAGER- Intact Psych- Anxious Skin- Dry, no [...] note for details. DAPHNE SHAHID MD Pager [phone] ClarisaJet lynn MD - 07/05/2017 6:48 PM EST Preliminary Cardiac Catheterization Procedure Note: Procedure(s) performed: Left heart cath, IABP insertion Access: Right SPEECH PATHOLOGY SUPERVISOR-->8fr IABP A time-out was conducted prior [...] Heparin gtt maintained. Pt transferred to director geophysical laboratory. documented in this encounter H&P Notes Daphne Shahid MD - 07/05/2017 6:08 PM EST CARDIOLOGY HISTORY & PHYSICAL EXAM Date of Admission: 07/05/2017 ( Hospital Day 0 days ) Responsible Attending: Daphne Shahid MD PCP: Lovely Vicente MD PCP#: [phone] Patient Active Problem List Diagnosis Code ??? [...] load with heparin drip and transferred to [facility]. While there, continued sob, question of chest pain. Stat TTE showing WMA diffusely and EF around 20%. No significant valvular disease. Taken to the director geophysical laboratory urgently for ongoing STEMI. [facility] Labs: INR 1.0 WBC 5.88 [...] I/O - s/p lasix in the director geophysical laboratory, redose to aim net neg 1L [...] Medicine, PGY-2 Cardiology S1, Team Pager # [phone] CARDIOLOGY ATTENDING NOTE Patient: Gregory Hoang Date [...] amenable for PCI. DAPHNE SHAHID MD Pager [phone] documented in this encounter Miscellaneous Notes Consult Note - Daphne Shahid MD - 07/14/2017 11:46 AM EST Heart Failure Service Inpatient Consult Note Gregory Hoang Date of : 1945 Age: 72 y.o. Today's date: 07/14/17 PCP: Lovely Vicente MD TYPEWRITER ASSEMBLY AND PARTS INSPECTOR: None Place of Service: [facility] Reason for Consult: Dr. Webber has requested [...] FACIAL NERVE MONITORING, SETUP performed by Manny Mcknihgt MD at [facility] OR ??? PRO CABG, ARTERIAL, SINGLE N/A 07/07/2017 @CABG, USING ARTERIAL GRAFT;SINGLE ARTERIAL GRAFT (WRVU 33.75) performed by Yuan Webber MD at [facility] OR ??? PRO CABG, ARTERY-VEIN, TWO N/A 07/07/2017 @CABG, TWO VENOUS GRAFTS & ARTERIAL GRAFT (WRVU 7.93) performed by Yuan Webber MD at [facility] OR ??? PRO COLONOSCOPY, REMV LESN, SNARE 01/16/2014 COLONOSCOPY, POLYPECTOMY, REMOVAL LESION BY SNARE performed by Nohemi Jaimes MD at [facility] ENDOSCOPY ??? PRO ENDOSCOPY W/VIDEO-ASST VEIN HARVEST, CABG Right 07/07/2017 ENDOSCOPIC HARVEST VEIN(S) FOR CABG (WRVU 0.31) performed by Yuan Webber MD at [facility] OR ??? PRO THYROIDECTOMY 03/28/2013 THYROIDECTOMY, TOTAL OR COMPLETE performed by Manny Mcknight MD at [facility] OR Outpt Meds: Current Outpatient Prescriptions Medication [...] following studies: EKG 07/14/17: NSR 75 bpm, AUTOMOTIVE WARRANTY ADMINISTRATOR anterior infarct, LAD CXR 07/11/17: FINDINGS: Sternotomy wires. The patient has been extubated, left chest tube removed, and Tillson-Suzi catheter removed since the 07/07/2017 study. Atelectasis [...] was discussed with Kono. Jaden Kelley MD Director Of Safety And Security Pager [phone] CARDIOLOGY ATTENDING NOTE Patient: Gregory Hoang Date [...] heart failure clinic. DAPHNE SHAHID MD Pager [phone] Plan of Care - Alden Chavarria PTA [...] home with assist Alden Chavarria PTA Pager: [phone] Inpatient Physical Therapy Problem: Acute Rehab Services [...] sit/sit to supine -- Bed Mobility Goal, Terrell Level supervision required -- Bed Mobility Goal, [...] - 3 days -- Gait Training Goal, Terrell Level supervision required -- Gait Training Goal, [...] days -- Transfer Training Goal, Activity Type irx-rg-hfyfu/biooc-gz-okm;app-cn-zxrqo/kyyty-mk-irf;toilet -- Transfer Train Goal, Terrell Level supervision required -- Transfer Training Goal, [...] keeping present for 2 days per family. Hose Seamer noted of frustrations, house keeping sent to room. Patient offered showered twice, refused. at bedside, frustrated that shower not complete, informed that patient had refused several times. requesting to see ELECTRONICS PARTS SALES REPRESENTATIVE, paged sent to Martha, will come to bedside (middle of consult). not willing to wait, Martha notified that family had gone home. Encouraged to come for morning rounds a t 8am. Diabetes team at bedside - insulin adjustments made. Call cabello in reach. Continue to monitor. PLAN MOVING FORWARD: Ambulate, dressing changes BID, Please change drsg at 4am per Martha ELECTRONICS PARTS SALES REPRESENTATIVE request. INDIVIDUALIZED FALL PREVENTION INTERVENTIONS: Patient-specific fall [...] levels on the lower side, 60ml of Collier juice given after a FS of 80. [...] Conf 07/13/17 0502 Interdisciplinary Rounds/Family Conf Participants sample case porter;dietitian/nutrition services;nursing;occupational therapy;patient;pharmacy;physical therapy;physician Plan of Care - [...] monitoring required during toileting and ADLs]: RN VACATION PLANNER Surveillance [continuous indirect monitoring]: Barrett Monitor CPG [...] Anticipated Discharge Disposition: home with assist Pager: [phone] CLARISSA SEGAL, PT 07/12/2017 Physical Therapy Rehabilitation [...] to sit/sit to supine Bed Mobility Goal, Terrell Level supervision required Bed Mobility Goal, Additional Goal adheres to psternal precautions for transfer Goal: Gait Training Goal Stand Alone Therapy Goal Outcome: Ongoing (Interventions Implemented as Appropriate) 07/12/17 1225 Gait Training Goal Gait Training Goal, Date Established 07/12/17 Gait Training Goal, Time to Achieve 2 - 3 days Gait Training Goal, Terrell Level supervision required Gait Training Goal, Assist [...] 3 days Transfer Training Goal, Activity Type lnc-ye-zowsj/wonjo-sp-xlw;lrw-hr-roscx/mbcbo-be-mls;toilet Transfer Train Goal, Terrell Level supervision required Transfer Training Goal, Additional Goal adheres to sternal precautions during transfer Consult Note - Octavia Vaughn RN - 07/12/2017 10:50 AM EST [facility] CARDIAC REHABILITATION Gregory Hoang was seen today regarding participation in the outpatient Phase 2 Cardiac Rehabilitation at [facility]. The patient agrees to a [...] IV site, amio to other piv and EVENT MANAGER at bedside to help assess, IV [...] staff, he stood and marched in place. [place]oughton weak, wanting to sit back down. Remained [...] Health/Prescription Coverage: Primary Insurance: MEDICARE Secondary Insurance: [employer] [place] Prescription Coverage: yes Preferred Pharmacy: [facility] [place] Other: none Primary Care Provider: Lovely Vicente MD [phone] Patient/Caregiver Goals of Treatment:live and get my breath back Potential Needs for Transition of Care: Rehab/SNF: [facility] Home Health: NA DME: TBD Dialysis: na Community Resources: available Transportation: yes Other: none Anticipated Barriers to Discharge/Special Considerations: none Plan: Likely SNF Rehab before home A member of the Care Management team will continue to monitor progress, follow for continuity of care and assist with transition of care planning. ERLIN Weiss Pager: [phone] Consult Note - Katerin Azul RN - [...] patient W/E coverage, Dr. Jeane Tatum, pager [phone] Katerin Azul APRN Endocrinology Diabetes Management Pager [phone] Plan of Care - Stephanie Godoy RN [...] 07/07/2017 6:27 PM EST [facility] Operative Note Patient Name: Gregory Hoang : [id number] MR#: [id number] Case Date: 07/07/2017 Surgeon: Surgeon(s) and Role: * Yuan Webber MD - Primary * Michael Drake PA - Physician [facility] * Linda Flores PA - Physician [facility] Preoperative diagnosis: 3VD Postoperative diagnosis: CAD, severe [...] Operative Note Patient Name: Gregory Hoang : [id number] MR#: [id number] Case Date: 07/07/2017 Surgeon: Surgeon(s) and Role: * Yuan Webber MD - Primary * Michael Drake PA - Physician [facility] * Linda Flores PA - Physician [facility] Preoperative diagnosis: 3VD Postoperative diagnosis: CAD, severe [...] Hahn, MS3 [employer] [facility] Cardiology S1 (Pager [phone]) Plan of Care - Emelia Ibarra RN [...] by Manny Mcknight MD at [facility] MAIN OR ??? PRO COLONOSCOPY, REMV LESN, SNARE 01/16/2014 COLONOSCOPY, POLYPECTOMY, REMOVAL LESION BY SNARE performed by Nohemi Jaimes MD at [facility] ENDOSCOPY ??? PRO THYROIDECTOMY 03/28/2013 THYROIDECTOMY, TOTAL OR COMPLETE performed by Manny Mcknight MD at [facility] MAIN OR Social History: Social History [...] with other involved physicians Yuan Webber MD [phone] Med Student Progress Note - Katty Hahn [...] BiPAP - s/p lasix in the director geophysical laboratory, was net -1.5L - s/p plavix [...] insulin drip - hold metformin - f/u [place] [facility] ?? #Home Meds - continue levothyroxine 175mcg - CPAP at night ?? # Routine - DVT PPx: heparin drip - Diet: Healthy heart diet, NPO at midnight for CABG tomorrow - Code Status: FULL - Dispo: CVCC Katty Hahn, M3 [facility] S1 (Pager [phone]) Plan of Care - Stephanie Godoy RN - 07/06/2017 5:00 AM EST Problem: Patient Care Overview Goal: Plan of Care Review 07/06/17 8865 Coping/Psychosocial Plan Of Care Reviewed With patient;family [...] urinal without difficulty. Lasix given in director geophysical laboratory, 1.4 L out at this time. [...] Zulma Dolan MD [facility] [place], [place] [address] (Wo rk) 05/28/2022 Laboratory Appointment Lab 05/28/2022 Office Visit Cardiology Zulma Dolan MD [facility] [place] [address] Liz Poole PA [facility] [place] [address] 06/10/2022 Office Visit Dermatology Laura Scherer MD [facility] [address] [place], [place] [address] (Wo rk) Scheduled Orders Name [...] procedure are i n the results section. [employer]IP INSTRUCTOR SCAN 07/15/2017 12:00 Res ults for [...] Results f or this ([facility]) AM EST procedure are i [...] Routine 07/07/2017 5:15 Results f or this ([facility]) AM EST procedure are i n the [...] Results f or this ([facility]) PM EST procedure are i n the [...] Timed 07/06/2017 2:10 Results f or this ([facility]) PM [...] SCREEN Routine 07/06/2017 12:00 ([facility]) PM EST APTT STAT 07/06/2017 11:24 Results [...] Results f or this ([facility]) AM EST procedure are i n the [...] Routine 07/06/2017 2:20 Results f or this ([facility]) AM EST procedure are i n the [...] Results f or this ([facility]) PM EST procedure are i n the [...] Results f or this ([facility]) PM [...] 2017 EXAMINATION: XR CHEST PA AND LATERAL (XOJETIC) CLINICAL HISTORY: CABG x 3 TECHNIQUE: PA [...] Teague APRN IMG DX ORDERABLES SCAN DOC: [employer]SMANSH[employer] INSTRUCTOR (07/15/2017 12:00 AM EST) Narrative 07/15/2017 [...] Signature POC Glucose 186 65 - 199 [facility] mg/dL [facility] Comment: Supplemental ranges: <140 mg/dL before meals <180 mg/dL all other times of the day Specimen Anatomical Collection Method Collection Time Receive d Time (Source) Location / / Volume Laterality Blood specimen 07/14/2017 11:56 7 (specimen) AM EST 11:56 AM EST Yuan Webber MD POINT OF CARE TEST ORDERABLE S Performing Organization Address City/State/[place] [address] POCT Glucose (07/14/2017 7:52 AM EST) athologist Signature POC Glucose 126 65 - 199 [facility]dL [facility] Comment: Supplemental ranges: [...] [facility]/[place] [address] (ABNORMAL) Prothrombin Time (07/14/2017 [...] Wilson APRN HEMATOLOGY ORDERABLES Performing Organization Address City/[facility] Code [place] [address] Potassium (07/14/2017 4:46 AM EST) athologist Signature Potassium 4.3 3.5 - 5.0 [facility] mmol/L [facility] Comment: Please note: [...] Address City/State/ZIP Code Phon e Number [address] POCT Glucose (07/14/2017 4:34 AM EST) athologist Signature POC Glucose 115 65 - 199 [place] mg/dL [facility] Comment: Supplemental ranges: [...] [facility]/ZIP Code Phon e Number [address] POCT Glucose (07/13/2017 11:33 PM EST) athologist Signature POC Glucose 132 65 - 199 [place] mg/dL [facility] Comment: Supplemental ranges: [...] [facility]/ZIP Code Ph[place] [address] POCT Glucose (07/13/2017 9:25 PM EST) athologist Signature POC Glucose 121 65 - 199 [place] mg/dL [facility] Comment: Supplemental ranges: <140 mg/dL before meals <180 mg/dL all other times of the day Specimen Anatomical Collection Method Collection Time Receive d Time (Source) Location / / Volume Laterality Blood specimen 07/13/2017 9:25 PM 017 9:25 (specimen) EST PM EST Yuan Webber MD POINT OF CARE TEST ORDERABLE S Performing Organization Address City/State/ZIP Code Phon e Number [address] POCT Glucose (07/13/2017 4:55 PM EST) athologist Signature POC Glucose 79 65 - [address] [facility] mg/dL [facility] Comment: Supplemental ranges: <140 mg/dL before meals <180 mg/dL all other times of the day Specimen Anatomical Collection Method Collection Time Receive d Time (Source) Location / / Volume Laterality Blood specimen 07/13/2017 4:55 PM 017 4:55 (specimen) EST PM EST Yuan Webber MD POINT OF CARE TEST ORDERABLE S Performing Organization Address City/State/ZIP Code Phon e Number [address] POCT Glucose (07/13/2017 11:16 AM EST) athologist Signature POC Glucose 163 65 - [address] [facility] mg/dL [facility] Comment: Supplemental ranges: <140 mg/dL before meals <180 mg/dL all other times of the day Specimen Anatomical Collection Method Collection Time Receive d Time (Source) Location / / Volume Laterality Blood specimen 07/13/2017 11:16 7 (specimen) AM EST 11:16 AM EST Yuan Webber MD POINT OF CARE TEST ORDERABLE S Performing Organization Address City/State/ZIP Code Phon e Number [address] POCT Glucose (07/13/2017 8:07 AM EST) athologist Signature POC Glucose 96 65 - 199 [place] mg/dL [facility] Comment: Supplemental ranges: <140 mg/dL before meals <180 mg/dL all other times of the day Specimen Anatomical Collection Method Collection Time Receive d Time (Source) Location / / Volume Laterality Blood specimen 07/13/2017 8:07 AM 017 8:07 (specimen) EST AM EST Yuan Webber MD POINT OF CARE TEST ORDERABLE S Performing Organization Address City/State/ZIP Code Phon e Number [address] (ABNORMAL) Prothrombin Time (07/13/2017 [...] Address City/State/[place] [address] (ABNORMAL) Basic Metabolic Panel (non-fasting) (07/13/2017 4:26 AM EST) athologist Signature Glucose Lvl 95 65 - 199 [facility] mg/dL [facility] [...] [facility] Estimated GFR 60 >=60 [facility] Comment: The reported eGFR should be multiplied b y 1.2 for patients. The MDRD is not an appropriate measure o f renal function for patients with body mass extremes or in patients with acute kidney failure. http://[employer]/DHnkdep http://[employer]/DHMCnkf Specimen Anatomical Collection Method Collection Time Receive d Time (Source) Location / / Volume Laterality Blood specimen 07/13/2017 4:26 AM 017 4:46 (specimen) EST AM EST Resulting Agency Comment Spec In Lab Makayla Wilson APRN CHEMISTRY ORDERABLES Performing Organization Address City/State/ZIP Code Phon e Number [address] POCT Glucose (07/13/2017 3:52 AM EST) athologist Signature POC Glucose 93 65 - 199 [facility] mg/dL [facility] Comment: Supplemental ranges: <140 mg/dL before meals <180 mg/dL all other times of the day Specimen Anatomical Collection Method Collection Time Receive d Time (Source) Location / / Volume Laterality Blood specimen 07/13/2017 3:52 AM 017 3:52 (specimen) EST AM EST Yuan Webber MD POINT OF CARE TEST ORDERABLE S Performing Organization Address City/State/ZIP Code Phon e Number [address] POCT Glucose (07/13/2017 12:21 AM EST) athologist Signature POC Glucose 80 65 - 199 [facility] mg/dL [facility] Comment: Supplemental ranges: <140 mg/dL before meals <180 mg/dL all other times of the day Specimen Anatomical Collection Method Collection Time Receive d Time (Source) Location / / Volume Laterality Blood specimen 07/13/2017 12:21 7 (specimen) AM EST 12:21 AM EST Yuan Webber MD POINT OF CARE TEST ORDERABLE S Performing Organization Address City/State/ZIP Code Phon e Number [address] POCT Glucose (07/12/2017 8:22 PM EST) athologist Signature POC Glucose 119 65 - 199 [place] mg/dL [facility] Comment: Supplemental ranges: [...] [facility]/ZIP Code Phon e Number [address] POCT Glucose (07/12/2017 4:02 PM EST) athologist Signature POC Glucose 114 65 - 199 [place] mg/dL [facility] Comment: Supplemental ranges: <140 mg/dL before meals <180 mg/dL all other times of the day Specimen Anatomical Collection Method Collection Time Receive d Time (Source) Location / / Volume Laterality Blood specimen 07/12/2017 4:02 PM 017 4:02 (specimen) EST PM EST Yuan Webber MD POINT OF CARE TEST ORDERABLE S Performing Organization Address City/State/ZIP Code Phon e Number [address] POCT Glucose (07/12/2017 11:28 AM EST) P athologist Signature POC Glucose 164 65 - 199 [place] mg/dL [facility] Comment: Supplemental ranges: <140 mg/dL before meals <180 mg/dL all other times of the day Specimen Anatomical Collection Method Collection Time Receive d Time (Source) Location / / Volume Laterality Blood specimen 07/12/2017 11:28 7 (specimen) AM EST 11:28 AM EST Yuan Webber MD POINT OF CARE TEST ORDERABLE S Performing Organization Address City/State/ZIP Code Phon e Number [address] POCT Glucose (07/12/2017 7:34 AM EST) athologist Signature POC Glucose 109 65 - 199 [facility] mg/dL [facility] Comment: Supplemental ranges: <140 mg/dL before meals <180 mg/dL all other times of the day Specimen Anatomical Collection Method Collection Time Receive d Time (Source) Location / / Volume Laterality Blood specimen 07/12/2017 7:34 AM 017 7:34 (specimen) EST AM EST Yuan Webber MD POINT OF CARE TEST ORDERABLE S Performing Organization Address City/State/[place] [address] (ABNORMAL) Basic Metabolic Panel (non-fasting) (07/12/2017 4:11 AM EST) athologist Signature Glucose Lvl 92 65 - 199 [facility] mg/dL [facility] Comment: [...] or in patients with acute kidney failure. http://[employer]/DHnkdep http://[employer]/DHMCnkf Specimen Anatomical Collection Method Collection Time Receive d Time (Source) Location / / Volume Laterality Blood specimen 07/12/2017 4:11 AM 017 8:57 (specimen) EST AM EST Resulting Agency Comment Spec In Lab Makayla Dickerson [place] STACIE CHEMISTRY ORDERABLES Performing Organization Address [facility] [place] [address] (ABNORMAL) Prothrombin Time (07/12/2017 [...] [place] STACIE HEMATOLOGY ORDERABLES Performing Organization Address [facility] Phon e Number [address] Potassium (07/12/2017 4:11 AM EST) P athologist Signature Potassium 3.8 3.5 - 5.0 [facility] mmol/L [facility] Comment: Please note: [...] Wilson APRN CHEMISTRY ORDERABLES Performing Organization Address City/[facility]/ZIP [facility] Phon e Number [address] POCT Glucose (07/12/2017 4:10 AM EST) athologist Signature POC Glucose 90 65 - 199 [facility] mg/dL [facility] Comment: Supplemental ranges: [...] [facility]/ZIP Code Phon e Number [address] POCT Glucose (07/11/2017 11:57 PM EST) athologist Signature POC Glucose 98 65 - 199 [facility] mg/dL [facility] Comment: Supplemental ranges: [...] [facility]/ZIP Code Phon e Number [address] POCT Glucose (07/11/2017 8:32 PM EST) P athologist Signature POC Glucose 146 65 - 199 [place] mg/dL [facility] Comment: Supplemental ranges: <140 mg/dL before meals <180 mg/dL all other times of the day Specimen Anatomical Collection Method Collection Time Receive d Time (Source) Location / / Volume Laterality Blood specimen 07/11/2017 8:32 PM 017 8:32 (specimen) EST PM EST Yuan Webber MD POINT OF CARE TEST ORDERABLE S Performing Organization Address City/State/[place] [address] XR Chest PA & [...] e xtubated, left chest tube removed, and Tillson-Suzi catheter removed since the study. Atelectasis at [...] e xtubated, left chest tube removed, and Tillson-Suzi catheter removed since the study. Atelectasis at [...] (H) 65 - 199 [place] mg/dL [facility] Comment: Supplemental ranges: [...] [facility]ZIP Code Phon e Number [address] POCT Glucose (07/11/2017 11:55 AM EST) athologist Signature POC Glucose 176 65 - 199 [place] mg/dL [facility] Comment: Supplemental ranges: <140 mg/dL before meals <180 mg/dL all other times of the day Specimen Anatomical Collection Method Collection Time Receive d Time (Source) Location / / Volume Laterality Blood specimen 07/11/2017 11:55 7 (specimen) AM EST 11:55 AM EST Yuan Webber MD POINT OF CARE TEST ORDERABLE S Performing Organization Address City/State/[place] [address] POCT Glucose (07/11/2017 7:53 AM EST) athologist Signature POC Glucose 189 65 - 199 [place] mg/dL [facility] Comment: Supplemental ranges: [...] [facility]/ZIP Code Phon e Number [address] POCT Glucose (07/11/2017 4:22 AM EST) athologist Signature POC Glucose 151 65 - 199 [place] mg/dL [facility] Comment: Supplemental ranges: <140 mg/dL before meals <180 mg/dL all other times of the day Specimen Anatomical Collection Method Collection Time Receive d Time (Source) Location / / Volume Laterality Blood specimen 07/11/2017 4:22 AM 017 4:22 (specimen) EST AM EST Yuan Webber MD POINT OF CARE TEST ORDERABLE S Performing Organization Address [facility]/[place] [address] Potassium (07/11/2017 2:20 AM EST) athologist Signature Potassium 4.5 3.5 - 5.0 [facility] mmol/L [facility] Comment: Please note: [...] [facility]/ZIP Code Phon e Number [address] POCT Glucose (07/11/2017 12:17 AM EST) athologist Signature POC Glucose 162 65 - 199 [place] mg/dL [facility] Comment: Supplemental ranges: <140 mg/dL before meals <180 mg/dL all other times of the day Specimen Anatomical Collection Method Collection Time Receive d Time (Source) Location / / Volume Laterality Blood specimen 07/11/2017 12:17 7 (specimen) AM EST 12:17 AM EST Yuan Webber MD POINT OF CARE TEST ORDERABLE S Performing Organization Address City/State/ZIP Code Phon e Number [address] POCT Glucose (07/10/2017 8:47 PM EST) athologist Signature POC Glucose 191 65 - 199 [place] mg/dL [facility] Comment: Supplemental ranges: <140 mg/dL before meals <180 mg/dL all other times of the day Specimen Anatomical Collection Method Collection Time Receive d Time (Source) Location / / Volume Laterality Blood specimen 07/10/2017 8:47 PM 017 8:47 (specimen) EST PM EST Yuan Webber MD POINT OF CARE TEST ORDERABLE S Performing Organization Address City/State/[place] [address] POCT Glucose (07/10/2017 4:06 PM EST) athologist Signature POC Glucose 131 65 - 199 [place] mg/dL [facility] Comment: Supplemental ranges: <140 mg/dL before meals <180 mg/dL all other times of the day Specimen Anatomical Collection Method Collection Time Receive d Time (Source) Location / / Volume Laterality Blood specimen 07/10/2017 4:06 PM 017 4:06 (specimen) EST PM EST Yuan Webber MD POINT OF CARE TEST ORDERABLE S Performing Organization Address City/State/ZIP Code Phon e Number [address] POCT Glucose (07/10/2017 3:08 PM EST) athologist Signature POC Glucose 151 65 - [address] [facility] mg/dL [facility] Comment: Supplemental ranges: <140 mg/dL before meals <180 mg/dL all other times of the day Specimen Anatomical Collection Method Collection Time Receive d Time (Source) Location / / Volume Laterality Blood specimen 07/10/2017 3:08 PM 017 3:08 (specimen) EST PM EST Yuan Webber MD POINT OF CARE TEST ORDERABLE S Performing Organization Address City/State/ZIP Code Phon e Number [address] POCT Glucose (07/10/2017 2:25 PM EST) athologist Signature POC Glucose 146 65 - 199 [place] mg/dL [facility] Comment: Supplemental ranges: <140 mg/dL before meals <180 mg/dL all other times of the day Specimen Anatomical Collection Method Collection Time Receive d Time (Source) Location / / Volume Laterality Blood specimen 07/10/2017 2:25 PM 017 2:25 (specimen) EST PM EST Yuan Webber MD POINT OF CARE TEST ORDERABLE S Performing Organization Address City/State/[place] [address] POCT Glucose (07/10/2017 1:23 PM EST) athologist Signature POC Glucose 166 65 - 199 [place] mg/dL [facility] Comment: Supplemental ranges: <140 mg/dL before meals <180 mg/dL all other times of the day Specimen Anatomical Collection Method Collection Time Receive d Time (Source) Location / / Volume Laterality Blood specimen 07/10/2017 1:23 PM 017 1:23 (specimen) EST PM EST Yuan Webber MD POINT OF CARE TEST ORDERABLE S Performing Organization Address City/State/[place] [address] POCT Glucose (07/10/2017 11:52 AM EST) athologist Signature POC Glucose 157 65 - [address] [facility] mg/dL [facility] Comment: Supplemental ranges: <140 mg/dL before meals <180 mg/dL all other times of the day Specimen Anatomical Collection Method Collection Time Receive d Time (Source) Location / / Volume Laterality Blood specimen 07/10/2017 11:52 7 (specimen) AM EST 11:52 AM EST Yuan Webber MD POINT OF CARE TEST ORDERABLE S Performing Organization Address City/State/ZIP Code Phon e Number [address] POCT Glucose (07/10/2017 11:01 AM EST) P athologist Signature POC Glucose 158 65 - 199 [place] mg/dL [facility] Comment: Supplemental ranges: [...] [facility]/ZIP Code Phon e Number [address] POCT Glucose (07/10/2017 9:54 AM EST) P athologist Signature POC Glucose 160 65 - 199 [place] mg/dL [facility] Comment: Supplemental ranges: <140 mg/dL before meals <180 mg/dL all other times of the day Specimen Anatomical Collection Method Collection Time Receive d Time (Source) Location / / Volume Laterality Blood specimen 07/10/2017 9:54 AM 017 9:54 (specimen) EST AM EST Yuan Webber MD POINT OF CARE TEST ORDERABLE S Performing Organization Address City/State/ZIP Code Phon e Number [address] POCT Glucose (07/10/2017 8:58 AM EST) P athologist Signature POC Glucose 183 65 - 199 [place] mg/dL [facility] Comment: Supplemental ranges: <140 mg/dL before meals <180 mg/dL all other times of the day Specimen Anatomical Collection Method Collection Time Receive d Time (Source) Location / / Volume Laterality Blood specimen 07/10/2017 8:58 AM 017 8:58 (specimen) EST AM EST Yuan Webber MD POINT OF CARE TEST ORDERABLE S Performing Organization Address City/State/ZIP Code Phon e Number [address] POCT Glucose (07/10/2017 8:01 AM EST) P athologist Signature POC Glucose 173 65 - 199 [place] mg/dL [facility] Comment: Supplemental ranges: <140 mg/dL before meals <180 mg/dL all other times of the day Specimen Anatomical Collection Method Collection Time Receive d Time (Source) Location / / Volume Laterality Blood specimen 07/10/2017 8:01 AM 017 8:01 (specimen) EST AM EST Yuan Webber MD POINT OF CARE TEST ORDERABLE S Performing Organization Address City/State/ZIP Code Phon e Number [address] POCT Glucose (07/10/2017 7:05 AM EST) athologist Signature POC Glucose 166 65 - 199 [place] mg/dL [facility] Comment: Supplemental ranges: <140 mg/dL before meals <180 mg/dL all other times of the day Specimen Anatomical Collection Method Collection Time Receive d Time (Source) Location / / Volume Laterality Blood specimen 07/10/2017 7:05 AM 017 7:05 (specimen) EST AM EST Yuan Webber MD POINT OF CARE TEST ORDERABLE S Performing Organization Address City/State/[place] [address] POCT Glucose (07/10/2017 6:00 AM EST) athologist Signature POC Glucose 162 65 - 199 [place] mg/dL [facility] Comment: Supplemental ranges: [...] City/State/ZIP Code Phon e Number [place] [id number] [facility] [address] Drive (ABNORMAL) Differential, Automated (07/10/2017 4:28 AM EST) [facility] Method Time Signature Neutrophils % 87.9 % [facility] Neutr Abs (ANC) 10.70 (H) 1.70 - [facility] 6.10 [facility] x10(3)/[facility] L LABORATORY Lymphocytes % 3.9 % [facility] Lymphocytes Abs 0.5 (L) 0.9 - 3.2 [facility] x10(3)/[facility] LABORATORY Monocytes % 7.0 % [facility] Monocyte Abs 0.8 0.3 - 0.9 [facility] x10(3)/[facility] LABORATORY Eosinophils % 0.3 % [facility] Eosinophils Abs 0.0 0.0 - 0.4 [facility] x10(3)/[facility] LABORATORY Basophils % 0.2 % [facility] Basophils Abs 0.0 0.0 - 0.1 [facility] x10(3)/[facility] LABORATORY Immature Gran % 0.70 % [...] Abs 0.08 (H) 0.00 - 0.04 x10(3)/[facility] LABORATORY Specimen Anatomical Collection Method Collection Time Receive d Time (Source) Location / / Volume Laterality Blood specimen 07/10/2017 4:28 AM 017 4:36 (specimen) EST AM EST Resulting Agency Comment Spec In Lab Yuan Webber MD HEMATOLOGY ORDERABLES Performing Organization Address City/[facility] [facility] [address] (ABNORMAL) Hemogram (07/10/2017 4:28 AM EST) Analysis Performed At Patho logist Time Signature WBC 12.2 (H) 4.0 - 9.5 [facility] x10(3)/[facility] LABORATORY RBC 3.31 (L) 4.58 - [place] ZHAORYAN 5.54 [facility] x10(6)/[facility] LABORATORY Hemoglobin 9.8 (L) 13.7 - [facility] 16.5 gm/dL [facility] LABORATORY Hematocrit 30.0 (L) 40.5 - [facility] 48.5 % [facility] LABORATORY MCV 90.6 82.9 - [facility] 93.1 [facility] LABORATORY MCH 29.6 27.5 - [facility] 32.1 pg [facility] LABORATORY MCHC 32.7 32.0 - [facility] 35.7 gm/dL [facility] LABORATORY Platelets 135 (L) 145 - 357 [facility] x10(3)/[facility] LABORATORY RDWSD 50.8 (H) 36.0 - [facility] 45.0 [facility] LABORATORY RDWCV 15.4 (H) 11.4 - [facility] 13.8 % [facility] LABORATORY MPV 10.0 7.6 - 12.9 [facility] LABORATORY nRBC % Auto 0.0 % [facility] LABORATORY nRBC Abs Auto 0.000 0.000 - [facility] 0.000 [facility] x10(3)/[facility] LABORATORY Specimen Anatomical Collection Method Collection Time Receive d Time (Source) Location / / Volume Laterality Blood specimen 07/10/2017 4:28 AM 017 4:36 (specimen) EST AM EST Resulting Agency Comment Spec In Lab Yuan Webber MD HEMATOLOGY ORDERABLES Performing Organization Address City/State/ZIP Code Phon e Number [address] (ABNORMAL) Basic Metabolic Panel (non-fasting) (07/10/2017 4:28 AM EST) P athologist Signature Glucose Lvl 178 65 - 199 [facility] mg/dL [facility] LABORATORY [...] [facility] LABORATORY Estimated GFR 60 >=60 [facility] LABORATORY Comment: The reported eGFR should be multiplied b y 1.2 for patients. The MDRD is not an appropriate measure o f renal function for patients with body mass extremes or in patients with acute kidney failure. http://GetNotes[employer])/DHnkdep http://[employer]/DHMCnkf Specimen Anatomical Collection Method Collection Time Receive d Time (Source) Location / / Volume Laterality Blood specimen 07/10/2017 4:28 AM 017 4:36 (specimen) EST AM EST Resulting Agency Comment Spec In Lab Yuan Webber MD CHEMISTRY ORDERABLES Performing Organization Address City/State/[place] [address] POCT Glucose (07/10/2017 4:26 AM EST) P athologist Signature POC Glucose 176 65 - 199 [facility] mg/dL [facility] LABORATORY Comment: Supplemental ranges: <140 mg/dL before meals <180 mg/dL all other times of the day Specimen Anatomical Collection Method Collection Time Receive d Time (Source) Location / / Volume Laterality Blood specimen 07/10/2017 4:26 AM 017 4:26 (specimen) EST AM EST Yuan Webber MD POINT OF CARE TEST ORDERABLE S Performing Organization Address City/State/ZIP Code Phon e Number [address] (ABNORMAL) POCT Glucose (07/10/2017 3:06 AM EST) P athologist Signature POC Glucose 204 (H) 65 - [address] [facility] mg/dL [facility] LABORATORY Comment: Supplemental ranges: [...] [facility] [address] (ABNORMAL) POCT Glucose (07/10/2017 2:10 AM EST) P athologist Signature POC Glucose 203 (H) 65 - [address] [facility] mg/dL [facility] LABORATORY Comment: Supplemental ranges: <140 mg/dL before meals <180 mg/dL all other times of the day Specimen Anatomical Collection Method Collection Time Receive d Time (Source) Location / / Volume Laterality Blood specimen 07/10/2017 2:10 AM 017 2:10 (specimen) EST AM EST Yuan Webber MD POINT OF CARE TEST ORDERABLE S Performing Organization Address City/State/ZIP Code Phon e Number [address] POCT Glucose (07/10/2017 1:09 AM EST) P athologist Signature POC Glucose 196 65 - [address] [facility] mg/dL [facility] LABORATORY Comment: Supplemental ranges: [...] Address City/State/ZIP Code Phon e Number [address] POCT Glucose (07/10/2017 12:10 AM EST) P athologist Signature POC Glucose 173 65 - 199 [place] mg/dL [facility] LABORATORY Comment: Supplemental ranges: <140 mg/dL before meals <180 mg/dL all other times of the day Specimen Anatomical Collection Method Collection Time Receive d Time (Source) Location / / Volume Laterality Blood specimen 07/10/2017 12:10 7 (specimen) AM EST 12:10 AM EST Yuan Webber MD POINT OF CARE TEST ORDERABLE S Performing Organization Address City/State/[place] [address] POCT Glucose (07/09/2017 11:01 PM EST) P athologist Signature POC Glucose 140 65 - 199 [place] mg/dL [facility] LABORATORY Comment: Supplemental ranges: <140 mg/dL before meals <180 mg/dL all other times of the day Specimen Anatomical Collection Method Collection Time Receive d Time (Source) Location / / Volume Laterality Blood specimen 07/09/2017 11:01 7 (specimen) PM EST 11:01 PM EST Yuan Webber MD POINT OF CARE TEST ORDERABLE S Performing Organization Address City/State/[place] [address] POCT Glucose (07/09/2017 10:05 PM EST) P athologist Signature POC Glucose 144 65 - [address] [facility] mg/dL [facility] LABORATORY Comment: Supplemental ranges: <140 mg/dL before meals <180 mg/dL all other times of the day Specimen Anatomical Collection Method Collection Time Receive d Time (Source) Location / / Volume Laterality Blood specimen 07/09/2017 10:05 7 (specimen) PM EST 10:05 PM EST Yuan Webber MD POINT OF CARE TEST ORDERABLE S Performing Organization Address City/State/ZIP Code Phon e Number [address] POCT Glucose (07/09/2017 9:31 PM EST) athologist Signature POC Glucose 121 65 - 199 [place] mg/dL [facility] LABORATORY Comment: Supplemental ranges: [...] [facility]ZIP Code Phon e Number [address] POCT Glucose (07/09/2017 9:03 PM EST) athologist Signature POC Glucose 98 65 - 199 [place] mg/dL [facility] LABORATORY Comment: Supplemental ranges: [...] [facility]/ZIP Code Phon e Number [address] POCT Glucose (07/09/2017 8:09 PM EST) athologist Signature POC Glucose 117 65 - 199 [place] mg/dL [facility] LABORATORY Comment: Supplemental ranges: <140 mg/dL before meals <180 mg/dL all other times of the day Specimen Anatomical Collection Method Collection Time Receive d Time (Source) Location / / Volume Laterality Blood specimen 07/09/2017 8:09 PM 017 8:09 (specimen) EST PM EST Yuan Webber MD POINT OF CARE TEST ORDERABLE S Performing Organization Address City/State/ZIP Code Phon e Number [address] POCT Glucose (07/09/2017 5:40 PM EST) athologist Signature POC Glucose 155 65 - 199 [place] mg/dL [facility] LABORATORY Comment: Supplemental ranges: <140 mg/dL before meals <180 mg/dL all other times of the day Specimen Anatomical Collection Method Collection Time Receive d Time (Source) Location / / Volume Laterality Blood specimen 07/09/2017 5:40 PM 017 5:40 (specimen) EST PM EST Yuan Webber MD POINT OF CARE TEST ORDERABLE S Performing Organization Address City/State/ZIP Code Phon e Number [address] POCT Glucose (07/09/2017 4:24 PM EST) athologist Signature POC Glucose 164 65 - 199 [place] mg/dL [facility] LABORATORY Comment: Supplemental ranges: <140 mg/dL before meals <180 mg/dL all other times of the day Specimen Anatomical Collection Method Collection Time Receive d Time (Source) Location / / Volume Laterality Blood specimen 07/09/2017 4:24 PM 017 4:24 (specimen) EST PM EST Yuan Webber MD POINT OF CARE TEST ORDERABLE S Performing Organization Address City/State/ZIP Code Phon e Number [address] POCT Glucose (07/09/2017 3:19 PM EST) athologist Signature POC Glucose 166 65 - [address] [facility] mg/dL [facility] LABORATORY Comment: Supplemental ranges: <140 mg/dL before meals <180 mg/dL all other times of the day Specimen Anatomical Collection Method Collection Time Receive d Time (Source) Location / / Volume Laterality Blood specimen 07/09/2017 3:19 PM 017 3:19 (specimen) EST PM EST Yuan Webber MD POINT OF CARE TEST ORDERABLE S Performing Organization Address City/State/[place] [address] POCT Glucose (07/09/2017 2:26 PM EST) athologist Signature POC Glucose 179 65 - 199 [place] mg/dL [facility] LABORATORY Comment: Supplemental ranges: [...] [facility] [address] (ABNORMAL) POCT Glucose (07/09/2017 1:29 PM EST) athologist Signature POC Glucose 210 (H) 65 - 199 [place] mg/dL [facility] LABORATORY Comment: Supplemental ranges: [...] [facility] [address] POCT Glucose (07/09/2017 12:20 PM EST) athologist Signature POC Glucose 172 65 - 199 [place]HA[place] mg/dL [facility] LABORATORY Comment: Supplemental ranges: <140 mg/dL before meals <180 mg/dL all other times of the day Specimen Anatomical Collection Method Collection Time Receive d Time (Source) Location / / Volume Laterality Blood specimen 07/09/2017 12:20 7 (specimen) PM EST 12:20 PM EST Yuan Webber MD POINT OF CARE TEST ORDERABLE S Performing Organization Address City/State/ZIP Code Phon e Number [address] POCT Glucose (07/09/2017 11:24 AM EST) P athologist Signature POC Glucose 156 65 - 199 [place] mg/dL [facility] LABORATORY Comment: Supplemental ranges: <140 mg/dL before meals <180 mg/dL all other times of the day Specimen Anatomical Collection Method Collection Time Receive d Time (Source) Location / / Volume Laterality Blood specimen 07/09/2017 11:24 7 (specimen) AM EST 11:24 AM EST Yuan Webber MD POINT OF CARE TEST ORDERABLE S Performing Organization Address City/State/ZIP Code Phon e Number [address] POCT Glucose (07/09/2017 11:11 AM EST) P athologist Signature POC Glucose 172 65 - 199 [place] mg/dL [facility] LABORATORY Comment: Supplemental ranges: <140 mg/dL before meals <180 mg/dL all other times of the day Specimen Anatomical Collection Method Collection Time Receive d Time (Source) Location / / Volume Laterality Blood specimen 07/09/2017 11:11 7 (specimen) AM EST 11:11 AM EST Yuan Webber MD POINT OF CARE TEST ORDERABLE S Performing Organization Address City/State/[place] [address] [facility] [address] POCT Glucose (07/09/2017 10:08 AM EST) P athologist Signature POC Glucose 176 65 - 199 [place]HA[place] mg/dL [facility] LABORATORY Comment: Supplemental ranges: <140 mg/dL before meals <180 mg/dL all other times of the day Specimen Anatomical Collection Method Collection Time Receive d Time (Source) Location / / Volume Laterality Blood specimen 07/09/2017 10:08 7 (specimen) AM EST 10:08 AM EST Yuan Webber MD POINT OF CARE TEST ORDERABLE S Performing Organization Address City/State/ZIP Code Phon [place] [address] POCT Glucose (07/09/2017 8:02 AM EST) P athologist Signature POC Glucose 178 65 - 199 [facility] mg/dL [facility] LABORATORY Comment: Supplemental ranges: <140 mg/dL before meals <180 mg/dL all other times of the day Specimen Anatomical Collection Method Collection Time Receive d Time (Source) Location / / Volume Laterality Blood specimen 07/09/2017 8:02 AM 017 8:02 (specimen) EST AM EST Yuan Webber MD POINT OF CARE TEST ORDERABLE S Performing Organization Address City/State/[place] [address] (ABNORMAL) BLOOD GAS 2 ARTERIAL (07/09/2017 5:37 AM EST) Analysis Performed At Patho logist Time Signature pH Art 7.36 7.35 - [facility] 7.45 [facility] LABORATORY pCO2 Art 38 35 - 45 [facility] LABORATORY pO2 Art 79 (L) 85 - 104 [facility] LABORATORY HCO3 Art 20.9 20.0 - [facility] 26.0 [facility] mmol/L [facility] LABORATORY BE Art -4.6 (L) -3.0 - 3.0 [facility] mmol/L [facility] LABORATORY Hgb Blood Gas 10.5 (L) 13.7 - [facility] 16.5 gm/dL [facility] LABORATORY O2HB Art 93.8 (L) 94.0 - [facility] 97.0 % [facility] LABORATORY COHB Art 0.3 % [facility] FIO2 Art 40 % [facility] LABORATORY PF Ratio Art 198 [facility] LABORATORY Specimen Anatomical Collection Method Collection Time Receive d Time (Source) Location / / Volume Laterality Blood specimen 07/09/2017 5:37 AM 017 5:37 (specimen) EST AM EST Yuan Webber MD CHEMISTRY ORDERABLES Performing Organization Address City/[facility]/[place] [address] POCT Glucose (07/09/2017 3:27 AM EST) P athologist Signature POC Glucose 192 65 - 199 [facility] mg/dL [facility] LABORATORY Comment: Supplemental ranges: [...] [facility] [address] (ABNORMAL) Basic Metabolic Panel (non-fasting) (07/09/2017 2:30 AM EST) P athologist Signature Glucose Lvl 179 65 - 199 [facility] mg/dL [facility] LABORATORY [...] or in patients with acute kidney failure. http://[employer]/DHnkdep http://[employer]/DHMCnkf Specimen Anatomical Collection Method Collection Time Receive d Time (Source) Location / / Volume Laterality Blood specimen Venous Draw / 07/09/2017 2:30 AM 2016 2:42 (specimen) Unknown EST AM EST Resulting Agency Comment Spec In Lab Yuan Webber MD CHEMISTRY ORDERABLES Performing Organization Address City/State/[place] [address] (ABNORMAL) Potassium (07/09/2017 2:30 AM EST) P athologist Signature Potassium 5.1 (H) 3.5 - 5.0 [facility] mmol/L [facility] LABORATORY Comment: Please note: [...] Organization Address City/State/[place] [address] (ABNORMAL) Hemogram (07/09/2017 2:30 AM EST) Analysis Performed At Patho logist Time Signature WBC 12.5 (H) 4.0 - 9.5 [facility] x10(3)/[facility] LABORATORY RBC 3.38 (L) 4.58 - [facility] 5.54 [facility] x10(6)/[facility] LABORATORY Hemoglobin 10.1 (L) 13.7 - [facility] 16.5 gm/dL [facility] LABORATORY Hematocrit 30.3 (L) 40.5 - [facility] 48.5 % [facility] LABORATORY MCV 89.6 82.9 - [facility] 93.1 [facility] LABORATORY MCH 29.9 27.5 - [place] 32.1 pg [facility] LABORATORY MCHC 33.3 32.0 - [facility] 35.7 gm/dL [facility] LABORATORY Platelets 127 (L) 145 - 357 [facility] x10(3)/[facility] LABORATORY RDWSD 49.3 (H) 36.0 - [place] RYAN 45.0 [facility] LABORATORY RDWCV 15.2 (H) 11.4 - [facility] 13.8 % [facility] LABORATORY MPV 9.9 7.6 - 12.9 [facility] LABORATORY nRBC % Auto 0.0 % [facility] LABORATORY nRBC Abs Auto 0.000 0.000 - [place] 0.000 [facility] x10(3)/[facility] LABORATORY Specimen Anatomical Collection Method Collection Time Receive d Time (Source) Location / / Volume Laterality Blood specimen 07/09/2017 2:30 AM 017 2:41 (specimen) EST AM EST Resulting Agency Comment Spec In Lab Yuan Webber MD HEMATOLOGY ORDERABLES Performing Organization Address City/[facility]/ZIP Code Phon e Number [address] POCT Glucose (07/09/2017 2:10 AM EST) P athologist Signature POC Glucose 169 65 - 199 [place] mg/dL [facility] LABORATORY Comment: Supplemental ranges: [...] [facility] [address] POCT Glucose (07/09/2017 1:01 AM EST) P athologist Signature POC Glucose 173 65 - 199 [place] mg/dL [facility] LABORATORY Comment: Supplemental ranges: [...] [facility]/ZIP Code Phon e Number [address] Blood culture (07/09/2017 12:40 AM EST) [facility] Method Time Signature Blood Culture No growth [place] at 5 days. [facility] LABORATORY Specimen Anatomical Collection Method Collection Time Receive d Time (Source) Location / / Volume Laterality Blood specimen STRUCTURE OF RIGHT 07/09/2017 12:40 3:58 (specimen) UPPER LIMB / AM EST AM EST Unknown Resulting Agency Comment Spec In Lab Yuan Webber MD MICROBIOLOGY - BLOOD ORDERAB LES Performing Organization Address City/State/[place] [address] Blood culture (07/09/2017 12:30 AM EST) [facility] iMER Method Time Signature Blood Culture No growth KATALINA DAVIS at 5 days. [facility] LABORATORY Specimen Anatomical [...] [facility] [address] (ABNORMAL) Urinalysis Microscopic Exam (07/09/2017 12:05 AM EST) Analysis Performed At Patho logist Time Signature RBC UA 32 (H) 0 - 3 /HPF [facility] LABORATORY WBC UA 5 (H) 0 - 3 /HPF [facility] LABORATORY Squam Epith UA <1 <=4 /HPF [facility] LABORATORY Hyaline Cast 17 (H) 0 - 2 /LPF [facility] LABORATORY Gran Cast UA 1 (H) <=0 /LPF [facility] LABORATORY Uric Ac Bianca Rare (A) None /HPF [facility] LABORATORY Specimen (Source) Anatomical Collection Method Collection Time Re ceived Time Location / / Volume Laterality Urine specimen 07/09/2017 12:05 07/09/ 7 obtained via AM EST 12:39 AM EST indwelling urinary catheter (specimen) Resulting Agency Comment Spec In Lab Yuan Webber MD URINE ORDERABLES Performing Organization Address City/State/[place] [address] (ABNORMAL) Urinalysis with reflex Culture (07/09/2017 12:05 AM EST) [facility] iMER Method Time Signature Glucose UA Negative Negative [place] DAVIS mg/dL [facility] LABORATORY Protein UA 30 (A) Negative [facility] mg/dL [facility] LABORATORY Bilirubin UA Negative Negative [facility]/dL [facility] LABORATORY Comment: Clinical correlation [facility] Nitrite UA Negative Negative [facility] LABORATORY Leukocytes UA Negative Negative [facility] LABORATORY Appearance UA Hazy (A) Clear [facility] LABORATORY Spec [place] UA 1.025 1.002 - 1.030 [facility] LABORATORY Color UA Yellow Yellow [facility] LABORATORY Culture Reflexed No [facility] [...] [facility] [address] POCT Glucose (07/08/2017 11:01 PM EST) P athologist Signature POC Glucose 191 65 - 199 [facility] mg/dL [facility] LABORATORY Comment: Supplemental ranges: <140 mg/dL before meals <180 mg/dL all other times of the day Specimen Anatomical Collection Method Collection Time Receive d Time (Source) Location / / Volume Laterality Blood specimen 07/08/2017 11:01 7 (specimen) PM EST 11:01 PM EST uYan Webber MD POINT OF CARE TEST ORDERABLE S Performing Organization Address City/State/ZIP Code Phon [place] [address] POCT Glucose (07/08/2017 10:04 PM EST) athologist Signature POC Glucose 198 65 - 199 [facility] mg/dL [facility] LABORATORY Comment: Supplemental ranges: <140 mg/dL before meals <180 mg/dL all other times of the day Specimen Anatomical Collection Method Collection Time Receive d Time (Source) Location / / Volume Laterality Blood specimen 07/08/2017 10:04 7 (specimen) PM EST 10:04 PM EST Yuan Webber MD POINT OF CARE TEST ORDERABLE S Performing Organization Address City/State/ZIP Code Phon e Number [address] Prepare Albumin 5% in [...] Address City/State/ZIP Code Phon e Number [address] POCT Glucose (07/08/2017 8:28 PM EST) athologist Signature POC Glucose 195 65 - 199 [place] mg/dL [facility] LABORATORY Comment: Supplemental ranges: <140 mg/dL before meals <180 mg/dL all other times of the day Specimen Anatomical Collection Method Collection Time Receive d Time (Source) Location / / Volume Laterality Blood specimen 07/08/2017 8:28 PM 017 8:28 (specimen) EST PM EST Yuan Webber MD POINT OF CARE TEST ORDERABLE S Performing Organization Address City/State/[place] [address] (ABNORMAL) POCT Glucose (07/08/2017 7:13 PM EST) P athologist Signature POC Glucose 220 (H) 65 - 199 [facility]/dL [facility] LABORATORY Comment: Supplemental ranges: <140 mg/dL before meals <180 mg/dL all other times of the day Specimen Anatomical Collection Method Collection Time Receive d Time (Source) Location / / Volume Laterality Blood specimen 07/08/2017 7:13 PM 017 7:13 (specimen) EST PM EST Yuan Webber MD POINT OF CARE TEST ORDERABLE S Performing Organization Address City/State/ZIP Code Phon e Number [address] POCT Glucose (07/08/2017 5:04 PM EST) athologist Signature POC Glucose 147 65 - 199 [facility] mg/dL [facility] LABORATORY Comment: Supplemental ranges: <140 mg/dL before meals <180 mg/dL all other times of the day Specimen Anatomical Collection Method Collection Time Receive d Time (Source) Location / / Volume Laterality Blood specimen 07/08/2017 5:04 PM 017 5:04 (specimen) EST PM EST Yuan Webber MD POINT OF CARE TEST ORDERABLE S Performing Organization Address City/State/[place] [address] (ABNORMAL) BLOOD GAS 2 ARTERIAL (07/08/2017 4:13 PM EST) Analysis Performed At Patho logist Time Signature pH Art 7.38 7.35 - [facility] [facility] 7.45 [facility]ORATORY pCO2 Art 36 35 - 45 [facility] LABORATORY pO2 Art 91 85 - 104 [facility] LABORATORY HCO3 Art 20.9 20.0 - [facility] 26.0 [facility] mmol/L [facility] LABORATORY BE Art -4.2 (L) -3.0 - 3.0 [facility] mmol/L [facility] Hgb Blood Gas 11.7 (L) 13.7 - [facility] 16.5 gm/dL [facility] O2HB Art 95.1 94.0 - [facility] 97.0 % [facility] COHB Art 0.6 % [place] [facility] FIO2 Art 40 % [facility] PF Ratio Art 228 [facility] LABOR[facility]ORY Specimen Anatomical Collection Method Collection Time Receive d Time (Source) Location / / Volume Laterality Blood specimen 07/08/2017 4:13 PM 017 4:13 (specimen) EST PM EST Yuan Webber MD CHEMISTRY ORDERABLES Performing Organization Address City/State/[place] [address] POCT Glucose (07/08/2017 4:01 PM EST) P athologist Signature POC Glucose 148 65 - 199 [facility] mg/dL [facility] Comment: Supplemental ranges: <140 mg/dL before meals <180 mg/dL all other times of the day Specimen Anatomical Collection Method Collection Time Receive d Time (Source) Location / / Volume Laterality Blood specimen 07/08/2017 4:01 PM 017 4:01 (specimen) EST PM EST Yuan Webber MD POINT OF CARE TEST ORDERABLE S Performing Organization Address City/State/ZIP Code Phon e Number [address] POCT Glucose (07/08/2017 3:21 PM EST) athologist Signature POC Glucose 118 65 - 199 [place] mg/dL [facility] Comment: Supplemental ranges: <140 mg/dL before meals <180 mg/dL all other times of the day Specimen Anatomical Collection Method Collection Time Receive d Time (Source) Location / / Volume Laterality Blood specimen 07/08/2017 3:21 PM 017 3:21 (specimen) EST PM EST Yuan Webber MD POINT OF CARE TEST ORDERABLE S Performing Organization Address City/State/ZIP Code Phon e Number [address] POCT Glucose (07/08/2017 2:01 PM EST) athologist Signature POC Glucose 129 65 - 199 [place] mg/dL [facility] Comment: Supplemental ranges: <140 mg/dL before meals <180 mg/dL all other times of the day Specimen Anatomical Collection Method Collection Time Receive d Time (Source) Location / / Volume Laterality Blood specimen 07/08/2017 2:01 PM 017 2:01 (specimen) EST PM EST Yuan Webber MD POINT OF CARE TEST ORDERABLE S Performing Organization Address City/State/[place] [address] POCT Glucose (07/08/2017 11:53 AM EST) athologist Signature POC Glucose 156 65 - 199 [place] mg/dL [facility] Comment: Supplemental ranges: <140 mg/dL before meals <180 mg/dL all other times of the day Specimen Anatomical Collection Method Collection Time Receive d Time (Source) Location / / Volume Laterality Blood specimen 07/08/2017 11:53 7 (specimen) AM EST 11:53 AM EST Yuan Webber MD POINT OF CARE TEST ORDERABLE S Performing Organization Address City/State/ZIP Code Phon e Number [address] POCT Glucose (07/08/2017 11:04 AM EST) athologist Signature POC Glucose 181 65 - 199 [facility]dL [facility] Comment: Supplemental ranges: [...] [facility] [address] (ABNORMAL) POCT Glucose (07/08/2017 9:24 AM EST) athologist Signature POC Glucose 203 (H) 65 - 199 [facility]dL [facility] Comment: Supplemental ranges: <140 mg/dL before meals <180 mg/dL all other times of the day Specimen Anatomical Collection Method Collection Time Receive d Time (Source) Location / / Volume Laterality Blood specimen 07/08/2017 9:24 AM 017 9:24 (specimen) EST AM EST Yuan Webber MD POINT OF CARE TEST ORDERABLE S Performing Organization Address City/State/[place] [address] APTT (07/08/2017 8:40 AM EST) athologist Signature PTT 33 25 - 35 sec [facility] Comment: The recommended therapeutic range for fu ll dose, unfractionated heparin at [facility] is 80 ? 114 seconds. The use [...] [facility] [address] (ABNORMAL) Prothrombin Time (07/08/2017 [...] [facility] [address] (ABNORMAL) POCT Glucose (07/08/2017 7:38 AM EST) P athologist Signature POC Glucose 232 (H) 65 - 199 [facility] mg/dL [facility] Comment: Supplemental ranges: [...] [facility] [address] (ABNORMAL) POCT Glucose (07/08/2017 7:07 AM EST) athologist Signature POC Glucose 234 (H) 65 - 199 [facility] mg/dL [facility] Comment: Supplemental ranges: <140 mg/dL before meals <180 mg/dL all other times of the day Specimen Anatomical Collection Method Collection Time Receive d Time (Source) Location / / Volume Laterality Blood specimen 07/08/2017 7:07 AM 017 7:07 (specimen) EST AM EST Yuan Webber MD POINT OF CARE TEST ORDERABLE S Performing Organization Address City/State/[place] [address] (ABNORMAL) POCT Glucose (07/08/2017 6:04 AM EST) athologist Signature POC Glucose 225 (H) 65 - 199 [facility] mg/dL [facility] Comment: Supplemental ranges: <140 mg/dL before meals <180 mg/dL all other times of the day Specimen Anatomical Collection Method Collection Time Receive d Time (Source) Location / / Volume Laterality Blood specimen 07/08/2017 6:04 AM 017 6:04 (specimen) EST AM EST Yuan Webber MD POINT OF CARE TEST ORDERABLE S Performing Organization Address City/State/[place] [address] (ABNORMAL) POCT Glucose (07/08/2017 5:31 AM EST) athologist Signature POC Glucose 216 (H) 65 - 199 [facility] mg/dL [facility] Comment: Supplemental ranges: <140 mg/dL before meals <180 mg/dL all other times of the day Specimen Anatomical Collection Method Collection Time Receive d Time (Source) Location / / Volume Laterality Blood specimen 07/08/2017 5:31 AM 017 5:31 (specimen) EST AM EST Yuan Webber MD POINT OF CARE TEST ORDERABLE S Performing Organization Address City/State/[place] [address] (ABNORMAL) POCT Glucose (07/08/2017 4:52 AM EST) P athologist Signature POC Glucose 257 (H) 65 - 199 [facility] mg/dL [facility] Comment: Supplemental ranges: <140 mg/dL before meals <180 mg/dL all other times of the day Specimen Anatomical Collection Method Collection Time Receive d Time (Source) Location / / Volume Laterality Blood specimen 07/08/2017 4:52 AM 017 4:52 (specimen) EST AM EST Daphne Shahid MD POINT OF CARE TEST ORDERABLE S Performing Organization Address City/State/[place] [address] (ABNORMAL) BLOOD GAS 2 ARTERIAL (07/08/2017 4:04 AM EST) Analysis Performed At Patho logist Time Signature pH Art 7.30 (L) 7.35 - [facility] 7.45 [facility]OR[facility]ORY pCO2 Art 41 35 - 45 [facility] LABORATORY pO2 Art 83 (L) 85 - 104 [facility] LABORATORY HCO3 Art 19.6 (L) 20.0 - [facility] 26.0 [facility] mmol/[facility] LABORATORY BE Art -6.8 (L) -3.0 - 3.0 [facility] mmol/L [facility] Hgb Blood Gas 12.2 (L) 13.7 - [facility] 16.5 gm/dL [facility] O2HB Art 93.5 (L) 94.0 - [facility] 97.0 % [facility] COHB Art 0.4 % [place] [facility] Comment: Noted by optical instrument assembler. FIO2 Art 40 % [facility] PF Ratio Art 208 [facility] Specimen Anatomical Collection Method Collection Time Receive d Time (Source) Location / / Volume Laterality Blood specimen 07/08/2017 4:04 AM 017 4:04 (specimen) EST AM EST Daphne Shahid MD CHEMISTRY ORDERABLES Performing Organization Address City/[facility]/ZIP Code Phon e Number [address] Scan, Peripheral Blood (07/08/2017 [...] Address City/State/ZIP Code Phon e Number [address] (ABNORMAL) Differential, Automated (07/08/2017 4:00 AM EST) Patholo gist Method Time Signature Neutrophils % 85.4 % [facility] LABORATORY Neutr Abs (ANC) 16.07 (H) 1.70 - [facility] 6.10 [facility] x10(3)/[facility] L LABORATORY Lymphocytes % 3.5 % [facility] LABORATORY Lymphocytes Abs 0.6 (L) 0.9 - 3.2 [facility] x10(3)/[facility] LABORATORY Monocytes % 10.4 % [facility] LABORATORY Monocyte Abs 2.0 (H) 0.3 - 0.9 [facility] x10(3)/[facility] LABORATORY Eosinophils % 0.0 % [facility] LABORATORY Eosinophils Abs 0.0 0.0 - 0.4 [facility] x10(3)/[facility] LABORATORY Basophils % 0.1 % [facility] LABORATORY Basophils Abs 0.0 0.0 - 0.1 [facility] x10(3)/[facility] LABORATORY Immature Gran % 0.60 [...] Abs 0.12 (H) 0.00 - 0.04 x10(3)/[facility] LABORATORY Specimen Anatomical Collection Method Collection Time Receive d Time (Source) Location / / Volume Laterality Blood specimen 07/08/2017 4:00 AM 017 4:09 (specimen) EST AM EST Resulting Agency Comment Spec In Lab Yuan Webber MD HEMATOLOGY ORDERABLES Performing Organization Address City/State/[place] [address] (ABNORMAL) Hemogram (07/08/2017 4:00 AM EST) Analysis Performed At Patho logist Time Signature WBC 18.8 (H) 4.0 - 9.5 [facility] x10(3)/[facility] LABORATORY RBC 4.00 (L) 4.58 - [facility] 5.54 [facility] x10(6)/[facility] LABORATORY Hemoglobin 11.9 (L) 13.7 - [facility] 16.5 gm/dL [facility]OR[facility]ORY Hematocrit 35.9 (L) 40.5 - [place] DAVIS 48.5 % [facility]ORATORY MCV 89.8 82.9 - [facility] 93.1 [facility] LABORATORY MCH 29.8 27.5 - [place] OLIVASCK 32.1 pg [facility] LABORATORY MCHC 33.1 32.0 - [place] DAVIS 35.7 gm/dL [facility]OR[facility]ORY Platelets 232 145 - 357 [facility] x10(3)/[facility] LABORATORY RDWSD 47.6 (H) 36.0 - [place] DAVIS 45.0 [facility] LABORATORY RDWCV 14.5 (H) 11.4 - [facility] 13.8 % [facility] LABORATORY MPV 9.5 7.6 - 12.9 [facility] LABORATORY nRBC % Auto 0.0 % [facility] LABORATORY nRBC Abs Auto 0.000 0.000 - [facility] 0.000 [facility] x10(3)/[facility] LABORATORY Specimen Anatomical Collection Method Collection Time Receive d Time (Source) Location / / Volume Laterality Blood specimen 07/08/2017 4:00 AM 017 4:09 (specimen) EST AM EST Resulting Agency Comment Spec In Lab Yuan Webber MD HEMATOLOGY ORDERABLES Performing Organization Address City/State/ZIP Code Phon e Number [place] [id number] HOSPITAL LABORATORY Drive (ABNORMAL) Electrolytes panel (07/08/2017 4:00 AM EST) P athologist Signature Sodium 139 135 - 145 [facility] mmol/L [facility]ORY Potassium 4.7 3.5 - 5.0 [facility] mmol/L [facility] Comment: result rechecked-JLK [...] CO2 21 (L) 22 - 31 mmol/L [facility] Anion Gap 14 5 - 15 mmol/L [place] RYAN [facility] LABORATORY Specimen Anatomical Collection Method Collection Time Receive d Time (Source) Location / / Volume Laterality Blood specimen 07/08/2017 4:00 AM 017 4:10 (specimen) EST AM EST Resulting Agency Comment Spec In Lab Yuan Webber MD CHEMISTRY ORDERABLES Performing Organization Address City/State/[place] [address] (ABNORMAL) Cardiac Enzymes (LEB/CGP) (07/08/2017 4:00 AM EST) P athologist Signature Troponin-T 1.88 (H) 0.00 - [facility] 0.00 ng/mL [facility] Comment: The 99th [...] additional sample may be indicated. Reference: Third Ivor Definition of Myocardial Infarction. Journal of the [...] Address City/State/ZIP Code Phon e Number [address] (ABNORMAL) Glucose, fasting (07/08/2017 4:00 AM EST) P athologist Signature Glucose 287 (H) 65 - 99 [facility] Fasting mg/dL [facility] Comment: ?Fasting* Glucose [...] [facility]/[place] [address] (ABNORMAL) Creatinine (07/08/2017 4:00 AM EST) Analysis Performed At Patho logist Time Signature Creatinine 1.55 (H) 0.80 - [place] 1.50 mg/dL [facility]ORY Estimated GFR 44 (L) >=60 [facility] Comment: The reported eGFR should be multiplied b y 1.2 for patients. The MDRD is not an appropriate measure o f renal function for patients with body mass extremes or in patients with acute kidney failure. http://GetNotes[employer] ([employer])/DHadelitakdep http://GetNotes.[employer] [employer] ([employer])/DHMCnkf Specimen Anatomical Collection Method Collection Time Receive d Time (Source) Location / / Volume Laterality Blood specimen 07/08/2017 4:00 AM 017 4:09 (specimen) EST AM EST Resulting Agency Comment Spec In Lab Yuan Webber MD CHEMISTRY ORDERABLES Performing Organization Address City/[facility]/ZIP Code Phon e Number [address] BUN (07/08/2017 4:00 AM EST) P athologist Signature BUN 16 10 - 20 [place] RYAN mg/dL [facility]OR[facility]ORY Specimen Anatomical Collection Method Collection Time Receive d Time (Source) Location / / Volume Laterality Blood specimen 07/08/2017 4:00 AM 017 4:09 (specimen) EST AM EST Resulting Agency Comment Spec In Lab Yuan Webber MD CHEMISTRY ORDERABLES Performing Organization Address City/[facility]/[place] [address] (ABNORMAL) POCT Glucose (07/08/2017 3:00 AM EST) athologist Signature POC Glucose 273 (H) 65 - 199 [facility] mg/dL [facility] Comment: Supplemental ranges: [...] [facility]/ZIP Code Phon e Number [address] (ABNORMAL) POCT Glucose (07/08/2017 1:57 AM EST) P athologist Signature POC Glucose 288 (H) 65 - 199 [facility] mg/dL [facility] Comment: Supplemental ranges: [...] [facility] [address] (ABNORMAL) POCT Glucose (07/08/2017 1:01 AM EST) athologist Signature POC Glucose 315 (H) 65 - 199 [facility] mg/dL [facility] Comment: Supplemental ranges: [...] [facility] [address] (ABNORMAL) BLOOD GAS 2 ARTERIAL (07/08/2017 12:09 AM EST) athologist Signature pH Art 7.26 7.35 - [facility] (Critical) 7.45 [facility] Comment: Noted by optical instrument assembler. pCO2 Art 41 35 - 45 [...] [facility] Comment: Noted by optical instrument assembler. FIO2 Art 40 % [facility]OR[facility] PF Ratio Art 240 [facility] LABORATORY Specimen Anatomical Collection Method Collection Time Receive d Time (Source) Location / / Volume Laterality Blood specimen Arterial Draw / 07/08/2017 12:09 2016 5:31 (specimen) Unknown AM EST AM EST Resulting Agency Comment Spec In Lab Samy Maldonado MD CHEMISTRY ORDERABLES Performing Organization Address City/State/[place] [address] (ABNORMAL) POCT Glucose (07/07/2017 10:56 PM EST) P athologist Signature POC Glucose 292 (H) 65 - 199 [facility] mg/dL [facility] Comment: Supplemental ranges: <140 mg/dL before meals <180 mg/dL all other times of the day Specimen Anatomical Collection Method Collection Time Receive d Time (Source) Location / / Volume Laterality Blood specimen 07/07/2017 10:56 7 (specimen) PM EST 10:56 PM EST Daphne T Kono MD POINT OF CARE TEST ORDERABLE S Performing Organization Address City/State/[place] [address] (ABNORMAL) BLOOD GAS 2 ARTERIAL (07/07/2017 10:04 PM EST) athologist Signature pH Art 7.22 7.35 - [facility] (Critical) 7.45 [facility] Comment: Noted by optical instrument assembler. pCO2 Art 42 35 - 45 [...] [facility] Comment: Noted by optical instrument assembler. FIO2 Art 40 % [facility] PF Ratio Art 235 [facility] Specimen Anatomical Collection Method Collection Time Receive d Time (Source) Location / / Volume Laterality Blood specimen 07/07/2017 10:04 7 (specimen) PM EST 10:04 PM EST Daphne Shahid MD CHEMISTRY ORDERABLES Performing Organization Address City/[facility]/ZIP Code Phon e Number [address] (ABNORMAL) Hemoglobin (07/07/2017 10:00 PM EST) P athologist Signature Hemoglobin 12.8 (L) 13.7 - [facility] 16.5 gm/dL [facility] Specimen Anatomical Collection Method Collection Time Receive d Time (Source) Location / / Volume Laterality Blood specimen 07/07/2017 10:00 7 (specimen) PM EST 10:13 PM EST Resulting Agency Comment Spec In Lab Yuan Webber MD HEMATOLOGY ORDERABLES Performing Organization Address City/[facility]/[place] [address] (ABNORMAL) Potassium (07/07/2017 10:00 PM EST) P athologist Signature Potassium 3.4 (L) 3.5 - 5.0 [facility] mmol/L [facility] Comment: Please note: [...] Address City/State/[place] [address] (ABNORMAL) POCT Glucose (07/07/2017 8:49 PM EST) P athologist Signature POC Glucose 241 (H) 65 - 199 [facility] mg/dL [facility] Comment: Supplemental ranges: [...] [facility] [address] Prepare Albumin 5% in [...] [facility] [address] EKG 12 Lead (07/07/2017 7:17 PM EST) Component Value Ref Range Test Analysis Performed Pathologis t Method Time At Signature Ventricular rate 75 BPM MUSE SYSTEM Atrial Rate 75 BPM MUSE SYSTEM P-R Interval 168 ms MUSE SYSTEM QRS Duration 104 ms MUSE SYSTEM Q-T Interval 462 ms MUSE SYSTEM QTC Calculated 515 ms MUSE SYSTEM (Bezet) Calculated P [place] 52 degrees MUSE SYSTEM Calculated R [place] -40 degrees MUSE SYSTEM Calculated T [place] 39 degrees MUSE SYSTEM INTERPRETATION Normal [...] [facility] (Critical[facility] 7.45 [facility] Comment: Noted by optical instrument assembler. pCO2 Art 50 (H) 35 - [...] [facility] Comment: Noted by optical instrument assembler. Please note: Patients with WBC >100,000 [...] [facility] Comment: Noted by optical instrument assembler. FIO2 Art 100 % [facility] PF Ratio Art 238 [facility] LABOR[facility]ORY Specimen Anatomical Collection Method Collection Time Receive d Time (Source) Location / / Volume Laterality Blood specimen 07/07/2017 6:57 PM 017 6:57 (specimen) EST PM EST Daphne Shahid MD CHEMISTRY ORDERABLES Performing Organization Address City/State/[place] [address] (ABNORMAL) BLOOD GAS 2 ARTERIAL (07/07/2017 5:31 PM EST) P athologist Signature pH Art 7.29 7.35 - [facility] (Critical) 7.45 [facility] Comment: Noted by optical instrument assembler. pCO2 Art 48 (H) 35 - [...] [facility]/ZIP Code Phon e Number [address] Fibrinogen (07/07/2017 5:30 PM EST) P athologist Signature Fibrinogen 224 180 - 510 [facility] mg/dL [facility] Comment: Called by: [...] City/[facility]/ZIP [facility] Phon e Number [address] APTT (07/07/2017 5:30 PM EST) P athologist Signature PTT 30 25 - 35 sec [facility] Comment: The recommended therapeutic range for fu ll dose, unfractionated heparin at [facility] is 80 ? 114 seconds. The use [...] Address City/[facility] [place] [address] (ABNORMAL) Prothrombin Time (07/07/2017 [...] Address City/[facility] [place] [address] (ABNORMAL) Hemogram (07/07/2017 5:30 PM EST) P athologist Signature WBC 19.6 (H) 4.0 - 9.5 [facility] x10(3)/[facility] LABORATORY RBC 3.08 (L) 4.58 - [facility] 5.54 [facility] x10(6)/[facility] LABORATORY Hemoglobin 9.2 (L) 13.7 - [facility] 16.5 gm/dL [facility] LABORATORY Hematocrit 28.0 (L) 40.5 - [facility] 48.5 % [facility] Comment: This result [...] Organization Address City/State/[place] [address] Prepare Platelets, Apheresis (07/07/2017 5:00 PM EST) P athologist Signature Dispensed? Yes [facility] LABORATORY Specimen Anatomical Collection Method Collection Time Receive d Time (Source) Location / / Volume Laterality Blood specimen 07/07/2017 5:00 PM 017 4:58 (specimen) EST PM EST Daphne Shahid MD BLOOD BANK ORDERABLES Performing Organization Address City/State/[place] [address] Platelet count (07/07/2017 4:55 PM EST) P athologist Signature Platelets 177 145 - 357 KATALINA DAVIS x10(3)/[facility] LABORATORY Plat Immature 1.5 0.0 - 7.4 KATALINA DAVIS % % [facility] LABORATORY Comment: Limitation of the Immature Platelet Frac tion (IPF)-May be less reliable when the platelet count is less than 64c858/u L due to statistical imprecision. The IPF [...] in a decreased state of production. References: [employer] The Clinical Value of the Immature Platelet Fraction (IPF) in Cell Recovery Document Number 10-1143 12/2010 [employer] The Role of the Imm ature [...] Organization Address City/State/[place] [address] (ABNORMAL) Hemoglobin and Hematocrit, blood (07/07/2017 4:55 PM EST) P athologist Signature Hemoglobin 9.1 (L) 13.7 - 16.5 KATALINA DAVIS gm/dL [facility]OR[facility] Comment: This result [...] Organization Address City/State/[place] [address] (ABNORMAL) BLOOD GAS 2 ARTERIAL (07/07/2017 4:38 PM EST) Analysis Performed At Patho logist Time Signature pH Art 7.37 7.35 - [facility] 7.45 [facility] LABORATORY pCO2 Art 44 35 - 45 [facility] mmHg [facility] LABORATORY pO2 Art 322 (H) 85 - 104 [facility] LABORATORY HCO3 Art 24.9 20.0 - [facility] 26.0 [facility] mmol/L [facility] LABORATORY BE Art -0.4 -3.0 - 3.0 [facility] mmol/L [facility] LABORATORY Hgb Blood Gas 10.1 (L) 13.7 - [facility] 16.5 gm/dL [facility] LABORATORY O2HB Art 98.7 (H) 94.0 - [facility] 97.0 % [facility] LABORATORY COHB Art 0.1 % [place] [facility] Comment: Noted by optical instrument assembler. Note: ??Total bilirubin higher than 20 [...] Organization Address City/State/[place] [address] (ABNORMAL) BLOOD GAS 2 VENOUS (07/07/2017 4:06 PM EST) Analysis Performed At Patho logist Time Signature pH Cody 7.31 (L) 7.32 - [facility] 7.42 [facility] LABORATORY pCO2 Cody 47 41 - 51 [facility] LABORATORY pO2 Cody 53 (H) 25 - 40 [facility] LABORATORY HCO3 Cody 22.7 mmol/L [facility] LABORATORY BE Cody -3.7 mmol/L [facility] LABOR[facility]ORY Hgb Blood Gas 10.2 (L) 13.7 - [facility] 16.5 gm/dL [facility] LABORATORY O2HB Cody 81.0 % [place] [facility] Comment: Noted by optical instrument assembler. Note: ??Total bilirubin higher than 20 m g/dL may lead to falsely low ionized calcium. CL Whole Blood 100 98 - 107 mmol/L [facility] LABORATORY Gluc Whole Bld 231 (H) 65 - 199 mg/dL [facility] LABORATORY Comment: Diabetes: >=200 mg/dL plus symp toms Lactate WB 1.1 0.5 - 2.2 mmol/L [facility] LABORATORY BGas Source Venous [facility] LABORATORY Specimen Anatomical Collection Method Collection Time Receive d Time (Source) Location / / Volume Laterality Blood specimen 07/07/2017 4:06 PM 017 4:06 (specimen) EST PM EST Daphne Shahid MD CHEMISTRY ORDERABLES Performing Organization Address City/State/[place] [address] (ABNORMAL) BLOOD GAS 2 ARTERIAL (07/07/2017 4:05 PM EST) Analysis Performed At Patho logist Time Signature pH Art 7.36 7.35 - [facility] 7.45 [facility] LABORATORY pCO2 Art 40 35 - 45 [facility] mmHg [facility] LABORATORY pO2 Art 282 (H) 85 - 104 [facility] LABORATORY HCO3 Art 22.1 20.0 - [facility] 26.0 [facility] mmol/L [facility] LABORATORY BE Art -3.4 (L) -3.0 - 3.0 [facility] mmol/L [facility] LABORATORY Hgb Blood Gas 10.2 (L) 13.7 - [facility] 16.5 gm/dL [facility] LABORATORY O2HB Art 98.4 (H) 94.0 - [facility] 97.0 % [facility] LABORATORY COHB Art 0.3 % [place] [facility] Comment: Noted by optical instrument assembler. Note: ??Total bilirubin higher than 20 [...] Organization Address City/State/[place] [address] (ABNORMAL) BLOOD GAS 2 ARTERIAL (07/07/2017 2:29 PM EST) Analysis Performed At Patho logist Time Signature pH Art 7.43 7.35 - [facility] 7.45 [facility] LABORATORY pCO2 Art 36 35 - 45 [facility] LABORATORY pO2 Art 221 (H) 85 - 104 [facility] LABORATORY HCO3 Art 23.2 20.0 - [facility] 26.0 [facility] mmol/[facility] LABORATORY BE Art -1.2 -3.0 - 3.0 [facility] mmol/L [facility] LABORATORY Hgb Blood Gas 13.9 13.7 - [facility] 16.5 gm/dL [facility] LABORATORY O2HB Art 97.8 (H) 94.0 - [facility] 97.0 % [facility] LABORATORY COHB Art 1.1 % [place] [...] Organization Address City/State/[place] [address] Prepare Coag Factors (Non-Hemophilia) (07/07/2017 1:25 PM EST) P athologist Signature Dispensed? Yes [facility] LABORATORY Specimen Anatomical Collection Method Collection Time Receive d Time (Source) Location / / Volume Laterality Blood specimen 07/07/2017 1:25 PM 017 1:21 (specimen) EST PM EST Daphne Shahid MD BLOOD BANK ORDERABLES Performing Organization Address City/State/ZIP Code Phon e Number [address] Prepare RBC (07/07/2017 1:10 PM EST) P athologist Signature Dispensed? Yes [facility] LABORATORY Specimen Anatomical Collection Method Collection Time Receive d Time (Source) Location / / Volume Laterality Blood specimen 07/07/2017 1:10 PM 017 1:05 (specimen) EST PM EST Daphne Shahid MD BLOOD BANK ORDERABLES Performing Organization Address City/State/[place] [address] POCT Glucose (07/07/2017 11:56 AM EST) P athologist Signature POC Glucose 188 65 - 199 [facility] mg/dL [facility] Comment: Supplemental ranges: [...] [facility]/[place] [address] POCT Glucose (07/07/2017 11:05 AM EST) P athologist Signature POC Glucose 168 65 - 199 [facility] mg/dL [facility] Comment: Supplemental ranges: <140 mg/dL before meals <180 mg/dL all other times of the day Specimen Anatomical Collection Method Collection Time Receive d Time (Source) Location / / Volume Laterality Blood specimen 07/07/2017 11:05 7 (specimen) AM EST 11:05 AM EST Daphne Shahid MD POINT OF CARE TEST ORDERABLE S Performing Organization Address City/State/[place] [address] POCT Glucose (07/07/2017 10:02 AM EST) athologist Signature POC Glucose 191 65 - 199 KATALINA ZHAORYAN mg/dL [facility] LABOR[facility]ORY Comment: Supplemental ranges: <140 mg/dL before meals <180 mg/dL all other times of the day Specimen Anatomical Collection Method Collection Time Receive d Time (Source) Location / / Volume Laterality Blood specimen 07/07/2017 10:02 7 (specimen) AM EST 10:02 AM EST Daphne Shahid MD POINT OF CARE TEST ORDERABLE S Performing Organization Address City/State/ZIP Code Phon e Number [address] POCT Glucose (07/07/2017 7:53 AM EST) athologist Signature POC Glucose 178 65 - [address] [facility] mg/dL [facility]OR[facility]ORY Comment: Supplemental ranges: <140 mg/dL before meals <180 mg/dL all other times of the day Specimen Anatomical Collection Method Collection Time Receive d Time (Source) Location / / Volume Laterality Blood specimen 07/07/2017 7:53 AM 017 7:53 (specimen) EST AM EST Daphne Shahid MD POINT OF CARE TEST ORDERABLE S Performing Organization Address City/State/[place] [address] POCT Glucose (07/07/2017 7:03 AM EST) athologist Signature POC Glucose 188 65 - [address] [facility] mg/dL [facility] Comment: Supplemental ranges: <140 mg/dL before meals <180 mg/dL all other times of the day Specimen Anatomical Collection Method Collection Time Receive d Time (Source) Location / / Volume Laterality Blood specimen 07/07/2017 7:03 AM 017 7:03 (specimen) EST AM EST Daphne Shahid MD POINT OF CARE TEST ORDERABLE S Performing Organization Address City/State/[place] [address] (ABNORMAL) POCT Glucose (07/07/2017 6:17 AM EST) athologist Signature POC Glucose 207 (H) 65 - 199 [facility] mg/dL [facility] LABORATORY Comment: Supplemental ranges: [...] City/State/ZIP Code Phon e Number [place] [id number]OS[address] LAB[address] Differential, Automated (07/07/2017 5:15 AM EST) [facility] Neutrophils % 69.7 % [facility] LABORATORY Neutr Abs (ANC) 5.32 1.70 - [facility] 6.10 [facility] x10(3)/[facility] LABORATORY Lymphocytes % 16.3 % [facility] LABORATORY Lymphocytes Abs 1.2 0.9 - 3.2 [facility] x10(3)/[facility] LABORATORY Monocytes % 10.5 % [facility] LABORATORY Monocyte Abs 0.8 0.3 - 0.9 [facility] x10(3)[facility] LABORATORY Eosinophils % 2.5 % [facility] LABORATORY Eosinophils Abs 0.2 0.0 - 0.4 [facility] x10(3)/[facility] LABORATORY Basophils % 0.7 % [facility] LABORATORY Basophils Abs 0.0 0.0 - 0.1 [facility] x10(3)/[facility] LABORATORY Immature Gran % [...] Melisa Gran Abs 0.02 0.00 - 0.04 x10(3)/[facility] LABORATORY Specimen Anatomical Collection Method Collection Time Receive d Time (Source) Location / / Volume Laterality Blood specimen 07/07/2017 5:15 AM 017 5:34 (specimen) EST AM EST Resulting Agency Comment Spec In Lab Daphne Shahid MD HEMATOLOGY ORDERABLES Performing Organization Address City/[facility]/[place] [address] (ABNORMAL) Hemogram (07/07/2017 5:15 AM EST) Analysis Performed At Patho logist Time Signature WBC 7.6 4.0 - 9.5 [facility] x10(3)/[facility] LABORATORY RBC 4.82 4.58 - [facility] 5.54 [facility] x10(6)/[facility] LABORATORY Hemoglobin 14.4 13.7 - [facility] 16.5 gm/dL [facility] LABORATORY Hematocrit 42.1 40.5 - [facility] 48.5 % [facility] LABORATORY MCV 87.3 82.9 - [facility] 93.1 [facility] LABORATORY MCH 29.9 27.5 - [facility] 32.1 pg [facility] LABORATORY MCHC 34.2 32.0 - [facility] 35.7 gm/dL [facility] LABORATORY Platelets 188 145 - 357 [facility] x10(3)/[facility] LABORATORY RDWSD 45.1 (H) 36.0 - [facility] 45.0 [facility] LABORATORY RDWCV 14.3 (H) 11.4 - [facility] 13.8 % [facility] LABORATORY MPV 9.4 7.6 - 12.9 [facility] LABORATORY nRBC % Auto 0.0 % [facility] LABORATORY nRBC Abs Auto 0.000 0.000 - [facility] 0.000 [facility] x10(3)/[facility] LABORATORY Specimen Anatomical Collection Method Collection Time Receive d Time (Source) Location / / Volume Laterality Blood specimen 07/07/2017 5:15 AM 017 5:34 (specimen) EST AM EST Resulting Agency Comment Spec In Lab Daphne Shahid MD HEMATOLOGY ORDERABLES Performing Organization Address City/State/[place] [address] (ABNORMAL) APTT (07/07/2017 5:15 AM EST) athologist Signature PTT 69 (H) 25 - 35 sec [facility] LABORATORY Comment: The recommended therapeutic range for fu ll dose, unfractionated heparin at [facility] is 80 ? 114 seconds. The use [...] [facility]/[place] [address] Magnesium (07/07/2017 5:15 AM EST) athologist Signature Magnesium 0.94 0.69 - 1.07 [facility] mmol/L [facility] LABORATORY Specimen Anatomical Collection Method Collection Time Receive d Time (Source) Location / / Volume Laterality Blood specimen 07/07/2017 5:15 AM 017 5:34 (specimen) EST AM EST Resulting Agency Comment Spec In Lab Daphne Shahid MD CHEMISTRY ORDERABLES Performing Organization Address City/[facility]/[place] [address] (ABNORMAL) Basic Metabolic Panel (non-fasting) (07/07/2017 5:15 AM EST) P athologist Signature Glucose Lvl 203 (H) 65 - 199 [facility] mg/dL [facility] LABORATORY [...] or in patients with acute kidney failure. [email or web address] Specimen Anatomical Collection Method Collection Time Receive d Time (Source) Location / / Volume Laterality Blood specimen 07/07/2017 5:15 AM 017 5:34 (specimen) EST AM EST Resulting Agency Comment Spec In Lab Daphne Shahid MD CHEMISTRY ORDERABLES Performing Organization Address City/State/[place] [address] (ABNORMAL) Cardiac Enzymes (LEB/CGP) (07/07/2017 5:15 AM EST) P athologist Signature Troponin-T 2.07 (H) 0.00 - [facility] 0.00 ng/mL [facility] LABORATORY Comment: The 99th [...] additional sample may be indicated. Reference: Third Ivor Definition of Myocardial Infarction. Journal of the [...] [facility]/ZIP Code Phon e Number [address] POCT Glucose (07/07/2017 5:01 AM EST) athologist Signature POC Glucose 182 65 - 199 [facility] mg/dL [facility] LABORATORY Comment: Supplemental ranges: [...] City/[facility]/ZIP [facility] Phon e Number [address] POCT Glucose (07/07/2017 4:08 AM EST) athologist Signature POC Glucose 199 65 - 199 [facility] mg/dL [facility] LABOR[facility]ORY Comment: Supplemental ranges: <140 mg/dL before meals <180 mg/dL all other times of the day Specimen Anatomical Collection Method Collection Time Receive d Time (Source) Location / / Volume Laterality Blood specimen 07/07/2017 4:08 AM 017 4:08 (specimen) EST AM EST Daphne Shahid MD POINT OF CARE TEST ORDERABLE S Performing Organization Address City/State/ZIP Code Phon e Number [address] POCT Glucose (07/07/2017 3:03 AM EST) athologist Signature POC Glucose 188 65 - 199 KATALINA RYAN mg/dL [facility] LABORATORY Comment: Supplemental ranges: <140 mg/dL before meals <180 mg/dL all other times of the day Specimen Anatomical Collection Method Collection Time Receive d Time (Source) Location / / Volume Laterality Blood specimen 07/07/2017 3:03 AM 017 3:03 (specimen) EST AM EST Daphne Shahid MD POINT OF CARE TEST ORDERABLE S Performing Organization Address City/State/[place] [address] (ABNORMAL) POCT Glucose (07/07/2017 2:08 AM EST) athologist Signature POC Glucose 200 (H) 65 - 199 KATALINA RYAN mg/dL [facility] LABORATORY Comment: Supplemental ranges: <140 mg/dL before meals <180 mg/dL all other times of the day Specimen Anatomical Collection Method Collection Time Receive d Time (Source) Location / / Volume Laterality Blood specimen 07/07/2017 2:08 AM 017 2:08 (specimen) EST AM EST Daphne Shahid MD POINT OF CARE TEST ORDERABLE S Performing Organization Address City/State/ZIP Code Phon e Number [address] (ABNORMAL) POCT Glucose (07/07/2017 1:31 AM EST) athologist Signature POC Glucose 209 (H) 65 - 199 KATALINA RYAN mg/dL [facility] LABORATORY Comment: Supplemental ranges: <140 mg/dL before meals <180 mg/dL all other times of the day Specimen Anatomical Collection Method Collection Time Receive d Time (Source) Location / / Volume Laterality Blood specimen 07/07/2017 1:31 AM 017 1:31 (specimen) EST AM EST Daphne Shahid MD POINT OF CARE TEST ORDERABLE S Performing Organization Address City/State/[place] [address] XR Chest PA or [...] [facility] mg/dL [facility]ORY Comment: Supplemental ranges: <140 mg/dL before meals <180 mg/dL all other times of the day Specimen Anatomical Collection Method Collection Time Receive d Time (Source) Location / / Volume Laterality Blood specimen 07/07/2017 12:07 7 (specimen) AM EST 12:07 AM EST Daphne Shahid MD POINT OF CARE TEST ORDERABLE S Performing Organization Address City/State/[place] [address] (ABNORMAL) APTT (07/07/2017 12:00 AM EST) athologist Signature PTT 103 (H) 25 - 35 sec [facility] LABORATORY Comment: The recommended therapeutic range for fu ll dose, unfractionated heparin at [facility] is 80 ? 114 seconds. The use [...] [facility]/[place] [address] POCT Glucose (07/06/2017 9:55 PM EST) athologist Signature POC Glucose 109 65 - 199 [facility] mg/dL [facility] Comment: Supplemental ranges: [...] [facility] [address] POCT Glucose (07/06/2017 9:04 PM EST) athologist Signature POC Glucose 120 65 - [address] [facility] mg/dL [facility]OR[facility]ORY Comment: Supplemental ranges: [...] [facility] [address] POCT Glucose (07/06/2017 7:45 PM EST) athologist Signature POC Glucose 158 65 - 199 [facility] mg/dL [facility] LABOR[facility]ORY Comment: Supplemental ranges: [...] [facility] [address] Potassium (07/06/2017 7:40 PM EST) athologist Signature Potassium 3.9 3.5 - 5.0 [facility] mmol/L [facility] LABORATORY Comment: Please note: [...] [facility] [address] (ABNORMAL) Cardiac Enzymes (LEB/CGP) (07/06/2017 7:40 PM EST) athologist Signature Troponin-T 2.27 (H) 0.00 - [facility] 0.00 ng/mL [facility] LABORATORY Comment: The 99th [...] additional sample may be indicated. Reference: Third Ivor Definition of Myocardial Infarction. Journal of the [...] Organization Address City/State/[place] [address] (ABNORMAL) POCT Glucose (07/06/2017 7:13 PM EST) athologist Signature POC Glucose 200 (H) 65 - 199 [facility] mg/dL [facility] Comment: Supplemental ranges: [...] [facility] [address] (ABNORMAL) APTT (07/06/2017 6:15 PM EST) athologist Signature PTT 94 (H) 25 - 35 sec [facility] LABORATORY Comment: The recommended therapeutic range for fu ll dose, unfractionated heparin at [facility] is 80 ? 114 seconds. The use [...] [facility]/[place] [address] (ABNORMAL) POCT Glucose (07/06/2017 6:03 PM EST) athologist Signature POC Glucose 236 (H) 65 - 199 [facility] mg/dL [facility] Comment: Supplemental ranges: [...] [facility]/[place] [address] (ABNORMAL) POCT Glucose (07/06/2017 5:01 PM EST) athologist Signature POC Glucose 235 (H) 65 - [address] [facility] mg/dL [facility] Comment: Supplemental ranges: <140 mg/dL before meals <180 mg/dL all other times of the day Specimen Anatomical Collection Method Collection Time Receive d Time (Source) Location / / Volume Laterality Blood specimen 07/06/2017 5:01 PM 017 5:01 (specimen) EST PM EST Daphne Shahid MD POINT OF CARE TEST ORDERABLE S Performing Organization Address City/State/[place] [address] (ABNORMAL) POCT Glucose (07/06/2017 4:06 PM EST) athologist Signature POC Glucose 202 (H) 65 - 199 [place] RYAN mg/dL [facility] LABOR[facility] Comment: Supplemental ranges: <140 mg/dL before meals <180 mg/dL all other times of the day Specimen Anatomical Collection Method Collection Time Receive d Time (Source) Location / / Volume Laterality Blood specimen 07/06/2017 4:06 PM 017 4:06 (specimen) EST PM EST Daphne Shahid MD POINT OF CARE TEST ORDERABLE S Performing Organization Address City/State/[place] [address] POCT Glucose (07/06/2017 2:59 PM EST) athologist Signature POC Glucose 178 65 - 199 K[place]AL[place] RYAN mg/dL [facility] LAB[facility] Comment: Supplemental ranges: <140 mg/dL before meals <180 mg/dL all other times of the day Specimen Anatomical Collection Method Collection Time Receive d Time (Source) Location / / Volume Laterality Blood specimen 07/06/2017 2:59 PM 017 2:59 (specimen) EST PM EST Daphne Shahid MD POINT OF CARE TEST ORDERABLE S Performing Organization Address City/State/[place] [address] (ABNORMAL) Cardiac Enzymes (LEB/CGP) (07/06/2017 2:10 PM EST) athologist Signature Troponin-T 2.34 (H) 0.00 - [facility] 0.00 ng/mL [facility] LABORATORY Comment: The 99th [...] additional sample may be indicated. Reference: Third Ivor Definition of Myocardial Infarction. Journal of the [...] Organization Address City/State/[place] [address] POCT Glucose (07/06/2017 2:08 PM EST) P athologist Signature POC Glucose 192 65 - 199 [facility] mg/dL [facility] LABORATORY Comment: Supplemental ranges: <140 mg/dL before meals <180 mg/dL all other times of the day Specimen Anatomical Collection Method Collection Time Receive d Time (Source) Location / / Volume Laterality Blood specimen 07/06/2017 2:08 PM 017 2:08 (specimen) EST PM EST Daphne Shahid MD POINT OF CARE TEST ORDERABLE S Performing Organization Address City/State/ZIP Code Phon e Number [address] POCT Glucose (07/06/2017 1:04 PM EST) P athologist Signature POC Glucose 162 65 - 199 [facility] mg/dL [facility] LABORATORY Comment: Supplemental ranges: [...] [facility]/ZIP Code Phon e Number [address] POCT Glucose (07/06/2017 12:05 PM EST) athologist Signature POC Glucose 196 65 - 199 [facility] mg/dL [facility] LABOR[facility] Comment: Supplemental ranges: <140 mg/dL before meals <180 mg/dL all other times of the day Specimen Anatomical Collection Method Collection Time Receive d Time (Source) Location / / Volume Laterality Blood specimen 07/06/2017 12:05 7 (specimen) PM EST 12:05 PM EST Daphne Shahid MD POINT OF CARE TEST ORDERABLE S Performing Organization Address City/State/[place] [address] EKG 12 Lead (07/06/2017 12:00 PM EST) Component Value Ref Range Test Analysis Performed Pathologis t Method Time At Signature Ventricular rate 91 BPM MUSE SYSTEM Atrial Rate 91 BPM MUSE SYSTEM P-R Interval 140 ms MUSE SYSTEM QRS Duration 94 ms MUSE SYSTEM Q-T Interval 394 ms MUSE SYSTEM QTC Calculated 484 ms MUSE SYSTEM (Bezet) Calculated P [place] 36 degrees MUSE SYSTEM Calculated R [place] -19 degrees MUSE SYSTEM Calculated T [place] 104 degrees MUSE SYSTEM INTERPRETATION Normal sinus rhythm MUSE SYSTEM 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) ST & T wave abnormality, consider lateral ischemia Abnormal ECG When compared with ECG of 05-JUL-2017 20:39, No significant change was found Confirmed by MD Verma Gregory A. ([id number]) on 07/06/2017 5:07:33 PM Specimen Anatomical Collection [...] [facility] [address] Antibody screen (07/06/2017 12:00 PM EST) [facility] Method Time Signature Ab Screen Negative [facility] LABORATORY Expires at 07/09/2017 [facility] 235 on: [facility] LABORATORY Specimen Anatomical Collection Method Collection Time Receive d Time (Source) Location / / Volume Laterality Blood specimen 07/06/2017 12:00 7 (specimen) PM EST 12:24 PM EST Resulting Agency Comment Spec In Lab Daphne Shahid MD BLOOD BANK ORDERABLES Performing Organization Address City/[facility]/[place] [address] ABO/Rh Typing (07/06/2017 12:00 [...] Address City/State/[place] [address] Prothrombin Time (07/06/2017 11:24 [...] [facility] [address] (ABNORMAL) APTT (07/06/2017 11:24 AM EST) athologist Signature PTT 52 (H) 25 - 35 sec [facility] LABORATORY Comment: The recommended therapeutic range for fu ll dose, unfractionated heparin at [facility] is 80 ? 114 seconds. The use [...] Address City/State/[place] [address] POCT Glucose (07/06/2017 11:02 AM EST) athologist Signature POC Glucose 187 65 - [address] [facility] mg/dL [facility] LABORATORY Comment: Supplemental ranges: <140 mg/dL before meals <180 mg/dL all other times of the day Specimen Anatomical Collection Method Collection Time Receive d Time (Source) Location / / Volume Laterality Blood specimen 07/06/2017 11:02 7 (specimen) AM EST 11:02 AM EST Daphne Shahid MD POINT OF CARE TEST ORDERABLE S Performing Organization Address City/State/ZIP Code Phon e Number [address] POCT Glucose (07/06/2017 10:18 AM EST) athologist Signature POC Glucose 193 65 - [address] [facility] mg/dL [facility] LABORATORY Comment: Supplemental ranges: <140 mg/dL before meals <180 mg/dL all other times of the day Specimen Anatomical Collection Method Collection Time Receive d Time (Source) Location / / Volume Laterality Blood specimen 07/06/2017 10:18 7 (specimen) AM EST 10:18 AM EST Daphne Shahid MD POINT OF CARE TEST ORDERABLE S Performing Organization Address City/State/ZIP Code Phon e Number [address] POCT Glucose (07/06/2017 9:25 AM EST) athologist Signature POC Glucose 182 65 - 199 [place] mg/dL [facility] LABORATORY Comment: Supplemental ranges: <140 mg/dL before meals <180 mg/dL all other times of the day Specimen Anatomical Collection Method Collection Time Receive d Time (Source) Location / / Volume Laterality Blood specimen 07/06/2017 9:25 AM 017 9:25 (specimen) EST AM EST Daphne Shahid MD POINT OF CARE TEST ORDERABLE S Performing Organization Address City/State/[place] [address] (ABNORMAL) Cardiac Enzymes (LEB/CGP) (07/06/2017 8:10 AM EST) athologist Signature Troponin-T 2.26 (H) 0.00 - [facility] 0.00 ng/mL [facility] LABORATORY Comment: The 99th [...] additional sample may be indicated. Reference: Third Ivor Definition of Myocardial Infarction. Journal of the [...] Organization Address City/State/[place] [address] Magnesium (07/06/2017 8:10 AM EST) athologist Signature Magnesium 0.84 0.69 - 1.07 [facility] mmol/L [facility] LABORATORY Specimen Anatomical Collection Method Collection Time Receive d Time (Source) Location / / Volume Laterality Blood specimen 07/06/2017 8:10 AM 017 8:21 (specimen) EST AM EST Resulting Agency Comment Spec In Lab Daphne Shahid MD CHEMISTRY ORDERABLES Performing Organization Address City/[facility]/[place] [address] (ABNORMAL) Basic Metabolic Panel (non-fasting) (07/06/2017 8:10 AM EST) P athologist Signature Glucose Lvl 199 65 - 199 [facility] mg/dL [facility] LABORATORY [...] or in patients with acute kidney failure. [email or web address] [email or web address])/DHnkdep [email or web address] [email or web address])/DHMCnkf Specimen Anatomical Collection Method Collection Time Receive d Time (Source) Location / / Volume Laterality Blood specimen 07/06/2017 8:10 AM 017 8:21 (specimen) EST AM EST Resulting Agency Comment Spec In Lab Daphne Shahid MD CHEMISTRY ORDERABLES Performing Organization Address City/[facility]/[place] [address] POCT Glucose (07/06/2017 7:34 AM EST) P athologist Signature POC Glucose 198 65 - 199 [facility]/dL [facility] LAB[facility] Comment: Supplemental ranges: <140 mg/dL before meals <180 mg/dL all other times of the day Specimen Anatomical Collection Method Collection Time Receive d Time (Source) Location / / Volume Laterality Blood specimen 07/06/2017 7:34 AM 017 7:34 (specimen) EST AM EST Daphne Shahid MD POINT OF CARE TEST ORDERABLE S Performing Organization Address City/State/ZIP Code Phon e Number [address] POCT Glucose (07/06/2017 7:03 AM EST) athologist Signature POC Glucose 181 65 - 199 [facility] mg/dL [facility] LAB[facility] Comment: Supplemental ranges: <140 mg/dL before meals <180 mg/dL all other times of the day Specimen Anatomical Collection Method Collection Time Receive d Time (Source) Location / / Volume Laterality Blood specimen 07/06/2017 7:03 AM 017 7:03 (specimen) EST AM EST Daphne Shahid MD POINT OF CARE TEST ORDERABLE S Performing Organization Address City/State/[place] [address] XR Chest PA or [...] Signature POC Glucose 172 65 - 199 [facility] mg/dL [facility] LABORATORY Comment: Supplemental ranges: <140 mg/dL before meals <180 mg/dL all other times of the day Specimen Anatomical Collection Method Collection Time Receive d Time (Source) Location / / Volume Laterality Blood specimen 07/06/2017 6:21 AM 017 6:21 (specimen) EST AM EST Daphne Shahid MD POINT OF CARE TEST ORDERABLE S Performing Organization Address City/State/[place] [address] POCT Glucose (07/06/2017 5:08 AM EST) athologist Signature POC Glucose 154 65 - 199 [facility] mg/dL [facility] LABORATORY Comment: Supplemental ranges: <140 mg/dL before meals <180 mg/dL all other times of the day Specimen Anatomical Collection Method Collection Time Receive d Time (Source) Location / / Volume Laterality Blood specimen 07/06/2017 5:08 AM 017 5:08 (specimen) EST AM EST Daphne Shahid MD POINT OF CARE TEST ORDERABLE S Performing Organization Address City/State/ZIP Code Phon e Number [address] POCT Glucose (07/06/2017 4:05 AM EST) athologist Signature POC Glucose 142 65 - 199 [facility] mg/dL [facility] LABOR[facility] Comment: Supplemental ranges: [...] [facility]/ZIP Code Phon e Number [address] POCT Glucose (07/06/2017 3:00 AM EST) athologist Signature POC Glucose 116 65 - 199 [facility] mg/dL [facility] LABORATORY Comment: Supplemental ranges: <140 mg/dL before meals <180 mg/dL all other times of the day Specimen Anatomical Collection Method Collection Time Receive d Time (Source) Location / / Volume Laterality Blood specimen 07/06/2017 3:00 AM 017 3:00 (specimen) EST AM EST Daphne Shahid MD POINT OF CARE TEST ORDERABLE S Performing Organization Address City/State/ZIP Code Phon e Number [address] Potassium (07/06/2017 2:20 AM EST) athologist Signature Potassium 3.9 3.5 - 5.0 [facility] mmol/L [facility] LABORATORY Comment: Please note: [...] Organization Address City/State/[place] [address] Differential, Automated (07/06/2017 2:20 AM EST) athologist Signature Neutrophils % 72.9 % [facility] LABORATORY Neutr Abs (ANC) 5.53 1.70 - [facility] 6.10 [facility] x10(3)[facility] LABORATORY Lymphocytes % 16.4 % [facility] Lymphocytes Abs 1.2 0.9 - 3.2 [facility] x10(3)/[facility] LABORATORY Monocytes % 9.4 % [facility] Monocyte Abs 0.7 0.3 - 0.9 [facility] x10(3)/[facility] LABORATORY Eosinophils % 0.5 % [facility] Eosinophils Abs 0.0 0.0 - 0.4 [facility] x10(3)[facility] LABORATORY Basophils % 0.4 % [facility] Basophils Abs 0.0 0.0 - 0.1 [facility] x10(3)/[facility] LABORATORY Immature Gran % [...] x10(3)/[facility] LABORATORY Specimen Anatomical Collection Method Collection Time Receive d Time (Source) Location / / Volume Laterality Blood specimen 07/06/2017 2:20 AM 017 2:33 (specimen) EST AM EST Resulting Agency Comment Spec In Lab Daphne Shahid MD HEMATOLOGY ORDERABLES Performing Organization Address City/State/[place] [address] (ABNORMAL) Hemogram (07/06/2017 2:20 AM EST) Analysis Performed At Patho logist Time Signature WBC 7.6 4.0 - 9.5 [facility] x10(3)/[facility] LABORATORY RBC 4.52 (L) 4.58 - [facility] 5.54 [facility] x10(6)/[facility] LABORATORY Hemoglobin 13.4 (L) 13.7 - [facility] 16.5 gm/dL [facility] LABORATORY Hematocrit 39.7 (L) 40.5 - [facility] 48.5 % [facility] LABORATORY MCV 87.8 82.9 - [facility] 93.1 [facility] LABORATORY MCH 29.6 27.5 - [place] 32.1 pg [facility] LABORATORY MCHC 33.8 32.0 - [facility] 35.7 gm/dL [facility] LABORATORY Platelets 189 145 - 357 [facility] x10(3)/[facility] LABORATORY RDWSD 45.6 (H) 36.0 - [facility] 45.0 [facility] LABORATORY RDWCV 14.3 (H) 11.4 - [facility] 13.8 % [facility] LABORATORY MPV 9.1 7.6 - 12.[address] [facility] [facility]ORY nRBC % Auto 0.0 % [facility] LABORATORY nRBC Abs Auto 0.000 0.000 - [place] [employer] 0.000 [facility] x10(3)/[facility] LABORATORY Specimen Anatomical Collection Method Collection Time Receive d Time (Source) Location / / Volume Laterality Blood specimen 07/06/2017 2:20 AM 017 2:33 (specimen) EST AM EST Resulting Agency Comment Spec In Lab Daphne Shahid MD HEMATOLOGY ORDERABLES Performing Organization Address City/State/ZIP Code Phon [place] [address] (ABNORMAL) APTT (07/06/2017 2:20 AM EST) athologist Signature PTT 52 (H) 25 - 35 sec [facility] LABORATORY Comment: The recommended therapeutic range for fu ll dose, unfractionated heparin at [facility] is 80 ? 114 seconds. The use [...] Address City/State/[place] [address] POCT Glucose (07/06/2017 2:20 AM EST) athologist Signature POC Glucose 115 65 - 199 [facility] mg/dL [facility] LABORATORY Comment: Supplemental ranges: <140 mg/dL before meals <180 mg/dL all other times of the day Specimen Anatomical Collection Method Collection Time Receive d Time (Source) Location / / Volume Laterality Blood specimen 07/06/2017 2:20 AM 017 2:20 (specimen) EST AM EST Daphne Shahid MD POINT OF CARE TEST ORDERABLE S Performing Organization Address City/State/[place] [address] (ABNORMAL) Cardiac Enzymes (LEB/CGP) (07/06/2017 2:20 AM EST) athologist Signature Troponin-T 2.13 (H) 0.00 - [facility] 0.00 ng/mL [facility] LABORATORY Comment: The 99th [...] additional sample may be indicated. Reference: Third Ivor Definition of Myocardial Infarction. Journal of the [...] Organization Address City/State/[place] [address] (ABNORMAL) Hemoglobin A1c (07/06/2017 2:20 AM EST) Analysis Performed At Patho logist Time Signature Hemoglobin A1C 6.8 (H) 4.3 - 5.6 [facility] [...] with hemoglobinopathies. Additional resources are available on [facility] ADA website. Macario HAMMOND, Ruthann J, Deysi R, et al. ??Tr anslating the A1C assay into estimated average glucose values. ??Diabetes Care 2008:31(8):9285-0187. Specimen Anatomical Collection Method Collection Time Receive d Time (Source) Location / / Volume Laterality Blood specimen 07/06/2017 2:20 AM 017 2:34 (specimen) EST AM EST Resulting Agency Comment Spec In Lab Daphne Shahid MD CHEMISTRY ORDERABLES Performing Organization Address City/State/[place] [address] (ABNORMAL) Lipid Panel (07/06/2017 2:20 AM EST) [facility] Method Time Signature Chol, Total 150 [...] greater than or equal to 190 mg/dL. [email or web address] Adults aged 40-75 with LDL 70-189 mg/dL should have their 10 year ASCVD risk estimated with the ACC/AHA ASCVD risk es timator http://tools.acc.org/VAVPW-Cukx-Acnxbyhj r/ Statin should be discussed if risk [...] Organization Address City/State/[place] [address] POCT Glucose (07/06/2017 1:09 AM EST) P athologist Signature POC Glucose 121 65 - 199 [facility] mg/dL [facility] LABORATORY Comment: Supplemental ranges: <140 mg/dL before meals <180 mg/dL all other times of the day Specimen Anatomical Collection Method Collection Time Receive d Time (Source) Location / / Volume Laterality Blood specimen 07/06/2017 1:09 AM 017 1:09 (specimen) EST AM EST Daphne Shahid MD POINT OF CARE TEST ORDERABLE S Performing Organization Address City/State/ZIP [place] [address] POCT Glucose (07/06/2017 12:06 AM EST) athologist Signature POC Glucose 147 65 - 199 [facility] mg/dL [facility] LABORATORY Comment: Supplemental ranges: <140 mg/dL before meals <180 mg/dL all other times of the day Specimen Anatomical Collection Method Collection Time Receive d Time (Source) Location / / Volume Laterality Blood specimen 07/06/2017 12:06 7 (specimen) AM EST 12:06 AM EST Daphne Shahid MD POINT OF CARE TEST ORDERABLE S Performing Organization Address City/State/[place] [address] (ABNORMAL) POCT Glucose (07/05/2017 10:56 PM EST) athologist Signature POC Glucose 200 (H) 65 - 199 [facility] mg/dL [facility] LABORATORY Comment: Supplemental ranges: <140 mg/dL before meals <180 mg/dL all other times of the day Specimen Anatomical Collection Method Collection Time Receive d Time (Source) Location / / Volume Laterality Blood specimen 07/05/2017 10:56 7 (specimen) PM EST 10:56 PM EST Daphne Shahid MD POINT OF CARE TEST ORDERABLE S Performing Organization Address City/State/[place] [address] (ABNORMAL) POCT Glucose (07/05/2017 10:05 PM EST) athologist Signature POC Glucose 225 (H) 65 - 199 [facility] mg/dL [facility] LABORATORY Comment: Supplemental ranges: <140 mg/dL before meals <180 mg/dL all other times of the day Specimen Anatomical Collection Method Collection Time Receive d Time (Source) Location / / Volume Laterality Blood specimen 07/05/2017 10:05 7 (specimen) PM EST 10:05 PM EST Daphne Shahid MD POINT OF CARE TEST ORDERABLE S Performing Organization Address City/State/[place] [address] (ABNORMAL) POCT Glucose (07/05/2017 9:02 PM EST) P athologist Signature POC Glucose 301 (H) 65 - 199 [place] mg/dL [facility] LABORATORY Comment: Supplemental ranges: [...] Phon e Number [facility] [address] XR Chest PA or [...] 474 ms MUSE SYSTEM (Bezet) Calculated P [place] 50 degrees MUSE SYSTEM Calculated R [place] -28 degrees MUSE SYSTEM Calculated T [place] 90 degrees MUSE SYSTEM INTERPRETATION Sinus [...] [facility] 6.10 [facility] x10(3)/[facility] L LABORATORY Lymphocytes % 7.0 % [facility] LABORATORY Lymphocytes Abs 0.7 (L) 0.9 - 3.2 [facility] x10(3)/[facility] LABORATORY Monocytes % 3.7 % [facility] LABORATORY Monocyte Abs 0.4 0.3 - 0.9 [facility] x10(3)/[facility] LABORATORY Eosinophils % 0.1 % [facility] LABORATORY Eosinophils Abs 0.0 0.0 - 0.4 [facility] x10(3)/[facility] LABORATORY Basophils % 0.2 % [facility] LABORATORY Basophils Abs 0.0 0.0 - 0.1 [facility] x10(3)/[facility] LABORATORY Immature Gran % 0.60 [...] Abs 0.06 (H) 0.00 - 0.04 x10(3)/[facility] LABORATORY Specimen Anatomical Collection Method Collection Time Receive d Time (Source) Location / / Volume Laterality Blood specimen 07/05/2017 8:20 PM 017 8:27 (specimen) EST PM EST Resulting Agency Comment Spec In Lab Daphne Shahid MD HEMATOLOGY ORDERABLES Performing Organization Address City/State/[place] [address] (ABNORMAL) Hemogram (07/05/2017 8:20 PM EST) Analysis Performed At Patho logist Time Signature WBC 10.3 (H) 4.0 - 9.5 [facility] x10(3)/[facility] LABORATORY RBC 4.64 4.58 - [facility] 5.54 [facility] x10(6)/[facility] LABORATORY Hemoglobin 14.1 13.7 - [facility] 16.5 gm/dL [facility] LABORATORY Hematocrit 40.8 40.5 - [place] 48.5 % [facility] LABORATORY MCV 87.9 82.9 - [facility] 93.1 [facility] LABORATORY MCH 30.4 27.5 - [place] 32.1 pg [facility] LABORATORY MCHC 34.6 32.0 - [facility] 35.7 gm/dL [facility] LABORATORY Platelets 204 145 - 357 [facility] x10(3)/[facility] LABORATORY RDWSD 46.1 (H) 36.0 - [place] 45.0 [facility] LABORATORY RDWCV 14.5 (H) 11.4 - [facility] 13.8 % [facility] LABORATORY MPV 9.7 7.6 - 12.9 [facility] LABORATORY nRBC % Auto 0.0 % [facility] LABORATORY nRBC Abs Auto 0.000 0.000 - [place] [facility] 0.000 [facility] x10(3)/[facility] LABORATORY Specimen Anatomical Collection Method Collection Time Receive d Time (Source) Location / / Volume Laterality Blood specimen 07/05/2017 8:20 PM 017 8:27 (specimen) EST PM EST Resulting Agency Comment Spec In Lab Daphne Shahid MD HEMATOLOGY ORDERABLES Performing Organization Address City/[facility]/ZIP Code Phon e Number [address] APTT (07/05/2017 8:20 PM EST) P athologist Signature PTT 32 25 - 35 sec [facility] LABORATORY Comment: The recommended therapeutic range for fu ll dose, unfractionated heparin at [facility] is 80 ? 114 seconds. The use [...] City/[facility]/ZIP [facility] [place] [address] (ABNORMAL) Cardiac Enzymes (LEB/CGP) (07/05/2017 8:20 PM EST) P athologist Signature Troponin-T 2.11 (H) 0.00 - [facility] 0.00 ng/mL [facility] LABORATORY Comment: The 99th [...] additional sample may be indicated. Reference: Third Ivor Definition of Myocardial Infarction. Journal of the [...] [facility]/[place] [address] (ABNORMAL) Magnesium (07/05/2017 8:20 PM EST) P athologist Signature Magnesium 0.68 (L) 0.69 - 1.07 [facility] mmol/L [facility] Specimen Anatomical Collection Method Collection Time Receive d Time (Source) Location / / Volume Laterality Blood specimen 07/05/2017 8:20 PM 017 8:27 (specimen) EST PM EST Resulting Agency Comment Spec In Lab Daphne Shahid MD CHEMISTRY ORDERABLES Performing Organization Address City/State/[place] [address] (ABNORMAL) Basic Metabolic Panel (non-fasting) (07/05/2017 8:20 PM EST) athologist Signature Glucose Lvl 321 (H) 65 - 199 [facility] mg/dL [facility] [...] or in patients with acute kidney failure. http://GetNotes.[place] [employer] (PIROX)/DHnkdep http://[employer]/DHMCnkf Specimen Anatomical Collection Method Collection Time Receive d Time (Source) Location / / Volume Laterality Blood specimen 07/05/2017 8:20 PM 017 8:27 (specimen) EST PM EST Resulting Agency Comment Spec In Lab Daphne Shahid MD CHEMISTRY ORDERABLES Performing Organization Address City/State/[place] [address] (ABNORMAL) POCT Glucose (07/05/2017 7:32 PM EST) athologist Signature POC Glucose 296 (H) 65 - 199 [facility] mg/dL [facility] Comment: Supplemental ranges: <140 mg/dL before meals <180 mg/dL all other times of the day Specimen Anatomical Collection Method Collection Time Receive d Time (Source) Location / / Volume Laterality Blood specimen 07/05/2017 7:32 PM 017 7:32 (specimen) EST PM EST Daphne Shahid MD POINT OF CARE TEST ORDERABLE S Performing Organization Address City/State/ZIP [place] [address] CARDIAC CATHETERIZATION (07/05/2017 6:47 PM EST) Anatomical Region Laterality Modality Other Specimen (Source) Anatomical Location Collection Method / Collectio n Time Received Time / Laterality Volume Narrative 07/05/2017 7:27 PM EST ?[facility] ? Cardiac Cathete rization/Intervention Report ? Patient Name: Natalya, Gregory ? Procedure Date: 07/05/2017 ? A #: [id number] ? Primary Physician: Clarisa, Jet T ? Case #: [id number] ? File Name: [id number] ? Catheterization Order Number: [id number] ? [facility] ? Final Report [place], [place] ? Patient Name: ? Gregory Natalya ?ID#: ?[id number] ? : ?1945 ? Procedure Date: ? [...] presented with: non -STEMI (w/i 7 days). [place] ?Cardiovascular Society angina c lass was IV. [...] angio graphy and IABP insertion in director geophysical laboratory. ? Jet Mckenna, M.D. ? Electronically Signed by: Jet Sampson DeVrizack s, M.D. ? Report Finalized: 07/05/2017 ??19:23 ? Report Last Ammended: 10/26/2017 ??10:29 ? Procedure Note Jet Mckenna MD - 10/26/2017Formatt ing of this note might be different from the original. [facility] Cardiac Catheterization/Intervention Re port Patient Name: Gregory Hoang Procedure Date: 07/05/2017 A #: [id number] Primary Physician: Jet Mckenna Case #: [id number] File Name: [id number] Catheterization Order Number: [id number] [facility] Pediatric Speech Therapist [facility] Final Report [place], [place] Patient Name: Gregory Hoang ID#: [id number] : 1945 Procedure Date: July 05, [...] presented with: non-STEMI ( w/i 7 days). [place] Cardiovascular Society angina class was IV. No [...] angiograph y and IABP insertion in director geophysical laboratory. Jet Mckenna M.D. Electronically Signed by: [...] E ? (Age): 1945(72y) Med Rec#: ? [id number] ?Sex: ?M ? Site Loc: ? [facility] ?Ht / Wt: ??173(cm)/86(kg) Pt. Loc: ?[facility]U ? BSA: ?2 Study Date: ?? 07/05/2017 ?Pt. Type: Inpatient Tape: ? Referring: Daphne Shahid ([id number]) Referring: MANDA ALCANTAR Reading: Blade Preston ([id number]) Systems Integration Advisor: Dayami Paula BA, [facility] Diagnosis: [...] normal. Venous: ? The inferior vena cava grea ears normal in size. ?There is a [...] E-wave Vmax ?0.8 ?m/sec ? MV deceleration [id number] ?msec ? MV A-wave Vmax ?0.8 ?m/sec [...] ? Mid-Inferior ?Akinetic ? Mid-Inferoseptal ?Hypokinetic ? [place]-Septal ? Akinetic ? [place]-Anterior ? Hypokinetic ? [place]-Lateral ?Hypokinetic ? [place]-Inferior ? Akinetic ? [place]-Tip ?Akinetic ? This report has been electronically sign ed by: _ Blade Preston MD ? 07/06/2017 08 :53:15 Images reviewed and interpretation verif ied [facility] Cardiac Ultrasound Laboratory Procedure Note Blade Preston MD - 07/06/2017Formatt ing of this note might be different from the original. Procedure: Transthoracic Echocardiogram Patient: NATALYA MCBRIDE(Age): [birth year]72y) Med Rec#: [id number] Sex: M Site Loc: [facility] Ht / Wt: 173(cm)/86(kg) Pt. Loc: U BSA: 2 Study Date: 07/05/2017 Pt. Type: Inpatie nt Tape: Referring: Daphne Shahid ([id number]) Referring: MANDA ALCANTAR Reading: Blade Preston ([id number]) Systems Integration Advisor: Dayami Paula BA, [facility] Diagnosis: [...] MV E-wave Vmax 0.8 m/sec MV deceleration [id number] msec MV A-wave Vmax 0.8 m/sec MV [...] Hypokinetic Mid-Posterolateral Hypokinetic Mid-Inferior Akinetic Mid-Inferoseptal Hypokinetic [place]ore-Septal Akinetic W[place]ore-Anterior Hypokinetic [place]ore-Lateral Hypokinetic [place]ore-Inferior Akinetic [place]-Tip Akinetic This report has been electronically sign ed by: _ Blade Preston MD 07/06/2017 08:53:15 Images reviewed and interpretation verif ied [facility] Cardiac Ultrasound Laboratory Daphne Shahid MD ECHO ORDERABLES Differential, Automated (07/05/2017 4:55 PM EST) athologist Signature Neutrophils % 77.0 % [facility] Neutr Abs (ANC) 5.26 1.70 - [facility] 6.10 [facility] x10(3)[facility] Lymphocytes % 13.3 % [facility] Lymphocytes Abs 0.9 0.9 - 3.2 [facility] x10(3)/[facility] LABORATORY Monocytes % 8.2 % [facility] Monocyte Abs 0.6 0.3 - 0.9 [facility] x10(3)/[facility] LABORATORY Eosinophils % 0.7 % [facility] Eosinophils Abs 0.0 0.0 - 0.4 [facility] x10(3)[facility] LABORATORY Basophils % 0.4 % [facility] Basophils Abs 0.0 0.0 - 0.1 [facility] x10(3)/[facility] LABORATORY Immature Gran % [...] x10(3)/[facility] LABORATORY Specimen Anatomical Collection Method Collection Time Receive d Time (Source) Location / / Volume Laterality Blood specimen 07/05/2017 4:55 PM 017 5:24 (specimen) EST PM EST Resulting Agency Comment Spec In Lab Daphne Shahid MD HEMATOLOGY ORDERABLES Performing Organization Address City/State/[place] [address] (ABNORMAL) Hemogram (07/05/2017 4:55 PM EST) Analysis Performed At Patho logist Time Signature WBC 6.8 4.0 - 9.[address] [facility] x10(3)/[facility] LABORATORY RBC 4.67 4.58 - [place] RYAN 5.54 [facility] x10(6)/[facility] LABORATORY Hemoglobin 14.0 13.7 - [facility] 16.5 gm/dL [facility] Hematocrit 41.0 40.5 - [facility] 48.5 % [facility] MCV 87.8 82.9 - [facility] 93.1 [facility] LABORATORY MCH 30.0 27.5 - [place] [facility] 32.1 pg [facility] MCHC 34.1 32.0 - [place] [facility] 35.7 gm/dL [facility] Platelets 197 145 - 357 [facility] x10(3)/[facility] LABORATORY RDWSD 46.4 (H) 36.0 - [facility] 45.0 [facility] LABORATORY RDWCV 14.5 (H) 11.4 - [facility] 13.8 % [facility] MPV 9.7 7.6 - 12.[address] [facility] [address] LAB[facility]ORY nRBC % Auto 0.0 % [facility] nRBC Abs Auto 0.000 0.000 - [facility] 0.000 [facility] x10(3)/[facility] LABORATORY Specimen Anatomical Collection Method Collection Time Receive d Time (Source) Location / / Volume Laterality Blood specimen 07/05/2017 4:55 PM 017 5:24 (specimen) EST PM EST Resulting Agency Comment Spec In Lab Daphne Shahid MD HEMATOLOGY ORDERABLES Performing Organization Address City/State/[place] [address] (ABNORMAL) Cardiac Enzymes (LEB/CGP) (07/05/2017 4:55 PM EST) P athologist Signature Troponin-T 1.69 (H) 0.00 - [place] DAVIS 0.00 ng/mL [facility] Comment: The 99th [...] additional sample may be indicated. Reference: Third Ivor Definition of Myocardial Infarction. Journal of the [...] City/State/ZIP Code Phon e Number [place] [id number] (ABNORMAL) pro-Brain Natriuretic Peptide (07/05/2017 4:55 PM EST) P athologist Signature ProBNP 1,598 (H) <=125 [facility] pg/mL [facility] Specimen Anatomical Collection Method Collection Time Receive d Time (Source) Location / / Volume Laterality Blood specimen 07/05/2017 4:55 PM 017 5:24 (specimen) EST PM EST Resulting Agency Comment Spec In Lab Daphne Shahid MD CHEMISTRY ORDERABLES Performing Organization Address City/State/ZIP Code Phon e Number [address] Magnesium (07/05/2017 4:55 PM EST) P athologist Signature Magnesium 0.78 0.69 - 1.07 [facility] mmol/L [facility] Specimen Anatomical Collection Method Collection Time Receive d Time (Source) Location / / Volume Laterality Blood specimen 07/05/2017 4:55 PM 017 5:24 (specimen) EST PM EST Resulting Agency Comment Spec In Lab Daphne Shahid MD CHEMISTRY ORDERABLES Performing Organization Address City/[facility]/[place] [address] (ABNORMAL) Basic Metabolic Panel (non-fasting) (07/05/2017 4:55 PM EST) P athologist Signature Glucose Lvl 230 (H) 65 - 199 [facility] mg/dL [facility]ORY [...] or in patients with acute kidney failure. http://GetNotes.[place] [employer] (PIROX)/DHnkdep http://[employer]/MCnkf Specimen Anatomical Collection Method Collection Time Receive d Time (Source) Location / / Volume Laterality Blood specimen 07/05/2017 4:55 PM 017 5:24 (specimen) EST PM EST Resulting Agency Comment Spec In Lab Daphne Shahid MD CHEMISTRY ORDERABLES Performing Organization Address City/[facility] Code Phon e Number [address] (ABNORMAL) APTT (07/05/2017 4:55 PM EST) P athologist Signature PTT 41 (H) 25 - 35 sec [facility] Comment: The recommended therapeutic range for fu ll dose, unfractionated heparin at [facility] is 80 ? 114 seconds. The use [...] Address City/[facility] [place] [address] (ABNORMAL) POCT Glucose (07/05/2017 4:53 PM EST) P athologist Signature POC Glucose 208 (H) 65 - 199 [facility] mg/dL [facility] Comment: Supplemental ranges: [...] City/State/ZIP Code Phon e Number [place] [phone] EKG 12 Lead (07/05/2017 4:32 PM EST) Component Value Ref Range Test Analysis Performed Pathologis t Method Time At Signature Ventricular rate 97 BPM MUSE SYSTEM Atrial Rate 97 BPM MUSE SYSTEM P-R Interval 148 ms MUSE SYSTEM QRS Duration 96 ms MUSE SYSTEM Q-T Interval 364 ms MUSE SYSTEM QTC Calculated 462 ms MUSE SYSTEM (Bezet) Calculated P [place] 48 degrees MUSE SYSTEM Calculated R [place] -33 degrees MUSE SYSTEM Calculated T [place] 98 degrees MUSE SYSTEM INTERPRETATION Normal [...] Coronary atherosclerosis of unspecified type of vessel, [place] or graft Cardiomyopathy, ischemic Other specified forms [...] in dextrose 5% 250 mL EST infusion (CABLE FERRYBOAT OPERATOR) CONTINUOUS PRN, Starting on Wed07/05/17 at [...] Rangel, VAMSI) 0530 (Gi cody - Provider: Deince Jacobson, VAMSI) 175 mcg, Oral, EVERY MORNING, [...] mg (CANCELED) 0521 (Given - Provider: Carmen eBrry RN)1338 (Given - Provider: More Luther RN)2201 [...] documented in this encounter Care Teams Mechanical Estimator Relationship Specialty Start Date End Date Lovely Vicente MD PCP - General 04/16/[address] [place] [address] [address] [place] [address] documented as of this encounter
--- OUTSIDE RECORDS SUMMARY | 2022-05-08 02:29 | XMS_ITS | Encounter Summary ---
:1945 Author Organization [facility] [place] [address] Care Team Providers Name Role Phone Lovely Vicente MD Primary Care Provider Encounter Details Date Type Department Care Team Description 07/05/2017 Telephone Cardiology Kim Galindo MD [facility] [place] [address] CARDIOLOGY DEPT [phone] [place], [place] [address] (Wo rk) Social History Tobacco [...] 1:54pm Referring Provider: Ivania CROWELL) Patient Location: [facility] Presenting Symptoms per OSH: 72 year old [...] infarct and elevated troponin, transport patient to [facility] for cath this afternoon and arrhythmia monitoring. Kim Galindo MD Client Services Assistant documented in this encounter Plan of Treatment Upcoming Encounters Date Type Specialty Care Team Description 05/28/2022 Appointment Cardiology Zulma Dolan MD [facility] [address] [place], [place] [address] (Wo rk) 05/28/2022 Laboratory Appointment Lab 05/28/2022 Office Visit Cardiology Zulma Dolan MD [facility] [place] [address] Liz Poole PA [facility] [place] [address] 06/10/2022 Office Visit Dermatology Laura Scherer MD [facility] [address] [place], [place] 0[address] (Wo rk) documented as of this encounter Visit Diagnoses Not on filedocumented in this encounter Care Teams Nuts And Bolts Assembler Relationship Specialty Start Date End Date Lovely Vicente MD PCP - General 04/16/[address] [place] [address] documented as of this encounter
--- OUTSIDE RECORDS SUMMARY | 2022-05-08 02:30 | XMS_ITS | Encounter Summary ---
:1945 Author Organization [facility] [place] [address] Care Team Providers Name Role Phone Lovely Vicente MD Primary Care Provider Reason for Visit Reason Onset Date Comments Pre Procedure Call 12/02/2016 Encounter Details Date Type Department Care Team Description 12/02/2016 Telephone Dermatology at [facility] Mira James LPN Pre Procedure Call [address] [place] [address] Social History Tobacco Use Types Packs/Day [...] MD [facility] [place], [place] [address] (Wo lissa) 05/28/2022 Laboratory Appointment Lab 05/28/2022 Office Visit Cardiology Zulma Dolan [place] [address] Liz Poole PA [facility] [place] [address] 06/10/2022 Office Visit Dermatology Laura Scherer MD [facility] [address] [place], [place] 0[address] (Wo rk) documented as of this encounter Visit Diagnoses Not on filedocumented in this encounter Care Teams Emissions Technician Relationship Specialty Start Date End Date Lovely Vicente MD PCP - General 04/16/[address] [place] [address] documented as of this encounter
--- OUTSIDE RECORDS SUMMARY | 2022-05-08 02:30 | XMS_ITS | Encounter Summary ---
:1945 Author Organization [facility] [place] [address] Care Team Providers Name Role Phone MiyaAngela STACIE Primary Care Provider Reason for Visit Reason Comments Post Op voiding trial Encounter Details Date Type Department Care Team Description 04/05/2013 Office Visit Urology at [facility] Darryl Egan, UTI ([facility] MD tract infection) [facility] (Primary Dx) [place] [address] UROLOGY DEPT [phone] [place], [place] 0[address] Social History Tobacco Use Types [...] Zulma Dolan MD [facility] [place], [place] 0[address] (Wo rk) 05/28/2022 Laboratory Appointment Lab 05/28/2022 Office Visit Cardiology Zulma Dolan MD [facility] [address] Liz Poole PA [facility] [place] [address] 06/10/2022 Office Visit Dermatology Laura Scherer MD [facility] DR [address] [place], [place] [address] (Wo rk) documented as of [...] Ref Test Analysis Performed At [facility] Method Time Signature Urine Culture CERNER ? Patient Name: GREGORY HOANG ? Ordered By: DARRYL [facility] ? MR#: [id number] ?LOC: ??5B ? /Sex: ??1945 (68 years), [...] S ? Patient: GREGORY HOANG ? MR#: [id number] ? FOOTNOTES ? (1) ? This organism [...] Organization Address City/State/[place] [address] RAKESH WALKER documented in this encounter Visit Diagnoses Diagnosis UTI (lower urinary tract infection) - Pr imary Urinary tract infection, site not specif ied documented in this encounter Care Teams Salvage Worker Relationship Specialty Start Date End Date Angela Holliday APRN PCP - General 01/25/13 04/15/[address] [place] [address] documented as of this encounter
--- OUTSIDE RECORDS SUMMARY | 2022-05-08 02:30 | XMS_ITS | Encounter Summary ---
:1945 Author Organization [facility] [place] [address] Care Team Providers Name Role Phone MiyaLokeshAngela STACIE Primary Care Provider Reason for Visit Reason Onset Date Comments Post-op Problem 04/05/2013 voiding trial Encounter Details Date Type Department Care Team Description 04/05/2013 Telephone Urology at [facility] Blade Smith, Post-op Problem [facility] (voiding trial) [place] [phone] UROLOGY DEPT [place] [address] (Wo rk) Social History Tobacco Use Types [...] Dolan MD [facility] [address] [place], [place] [address] (Wo rk) 05/28/2022 Laboratory Appointment Lab 05/28/2022 Office Visit Cardiology Zulma Dolan MD [facility] [place] [address] Liz Poole PA [facility] [place] [address] 06/10/2022 Office Visit Dermatology Laura Scherer MD [facility] [address] [place], [place] [address] (Wo rk) documented as of this encounter Visit Diagnoses Not on filedocumented in this encounter Care Teams Tree Inspector Relationship Specialty Start Date End Date Angela Holliday APRN PCP - General 01/25/13 04/15/[address] [place] [address] documented as of this encounter
--- OUTSIDE RECORDS SUMMARY | 2022-05-08 02:30 | XMS_ITS | Encounter Summary ---
:1945 Author Organization [facility] [place] [address] Care Team Providers Name Role Phone Lovely Vicente MD Primary Care Provider Reason for Visit Reason Comments Thyroid Cancer Encounter Details Date Type Department Care Team Description 06/05/2015 Office Visit Endocrinology at [facility] Albertina Prescott, History of papillary [facility] MD Luz adenocarcinoma of [facility] thyroid (Primary Dx) [place] [address] CENTER [phone] [place] [address] Social History Tobacco Use Types Packs/Day Years [...] the thyroid gland were obtained using a [employer] ultrasound machine. All measurements are given as AP x Transverse x Longitudinal Right Lobe: Absent Left Lobe: Absent Isthmus: Absent Central/Lateral neck: no morphologically abnormal lymph nodes. Impression: No sonographic evidence of recurrence. LUZ PRESCOTT MD Hygiene Teacherpoultry slaughterer Section of Endocrinology [facility] [...] Strip by [facility].(Non-Drug; Combo Route) route [...] --f/u in 1 year LUZ PRESCOTT MD Hygiene Teacherpoultry slaughterer Section of Endocrinology [facility] [...] MD [facility] [address] [place], [place] [address] (Wo rk) 05/28/2022 Laboratory Appointment Lab 05/28/2022 Office Visit Cardiology Zulma Dolan MD [facility] [place] [address] Liz Poole PA [facility] [place] [address] 06/10/2022 Office Visit Dermatology Laura Scherer MD [facility] ER [address] [place], [place] [address] (Wo rk) documented as of [...] athologist Signature Thyroglobulin 0.6 <=54.9 CERNER ng/mL [facility] Comment: Interpret with caution. Tg levels [...] BR et al. J Clin Endo Metab 1999;84:2414-1157). 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
--- OUTSIDE RECORDS SUMMARY | 2022-05-08 02:30 | XMS_ITS | Encounter Summary ---
:1945 Author Organization [facility] [place] [address] Care Team Providers Name Role Phone Angela Holliday APRN Primary Care Provider Encounter Details Date Type Department Care Team Description 04/30/2014 Orders Only Endocrinology at [facility] Albertina Palmer, Thyroid cancer [facility] Jorge Boyer MD ([place]) [place] [address] [facility] [phone] CENTER ENDOCRINOLOGY DEPT [place], [place] [address] Social History Tobacco Use Types [...] MD [facility] er Dr [place], [place] [address] (Wo rk) 05/28/2022 Laboratory Appointment Lab 05/28/2022 Office Visit Cardiology Zulma Dolan MD [facility] [place] [address] Liz Poole PA [facility] [place] [address] 06/10/2022 Office Visit Dermatology Laura Scherer MD [facility] ER [address] [place], [place] [address] (Wo rk) documented as of this encounter Visit Diagnoses Diagnosis Thyroid cancer - Primary Malignant neoplasm of thyroid gland documented in this encounter Care Teams Nursing Education Specialist Relationship Specialty Start Date End Date Angela Holliday APRN PCP - General 01/25/13 04/15/[address] [place] [address] documented as of this encounter
--- OUTSIDE RECORDS SUMMARY | 2022-05-08 02:30 | XMS_ITS | Encounter Summary ---
:1945 Author Organization [facility] [place] [address] Care Team Providers Name Role Phone Lovely Vicente MD Primary Care Provider Encounter Details Date Type Department Care Team Description 09/03/2016 Laboratory Appointment Lab at [facility] Hx [facility] [place] [phone] Social History Tobacco Use Types Packs/Day Years [...] [facility] er [address] [place] [address] (Wo rk) 05/28/2022 Laboratory Appointment Lab 05/28/2022 Office Visit Cardiology Zulma Dolan MD [facility] [place] [address] Liz Poole PA [facility] [place] [address] 06/10/2022 Office Visit Dermatology Laura Scherer MD [facility] ER DR TEJA GR[place], [place] [address] (Wo rk) documented as of [...] <0.4 <=54.9 [facility] ng/mL [facility] Comment: Interpret with caution. [...] than those obtained with T4 withdrawal protocol (Chauncey BR et al. J Clin Endo Metab 1999;84:6400-1382). Assay performed using the DPC Immulite T [...] Address City/State/ZIP Code Phon e Number [address] TSH (09/03/2016 11:07 AM EST) P athologist Signature TSH 3.01 0.27 - 4.20 [facility] mcIU/mL [facility] Specimen Anatomical Collection Method Collection Time Receive d Time (Source) Location / / Volume Laterality Blood specimen 09/03/2016 11:07 7 (specimen) AM EST 11:22 AM EST Resulting Agency Comment Spec In Lab Luz Prescott MD CHEMISTRY ORDERABLES Performing Organization Address City/[facility]/ZIP [facility] [place] [address] documented in this encounter Visit Diagnoses Diagnosis Hx of papillary thyroid carcinoma Personal history of malignant neoplasm o f thyroid documented in this encounter Care Teams Booth Usher Relationship Specialty Start Date End Date Lovely Vicente MD PCP - General 04/16/15 [address] [place] [address] documented as of this encounter
--- OUTSIDE RECORDS SUMMARY | 2022-05-08 02:30 | XMS_ITS | Encounter Summary ---
:1945 Author Organization [facility] [place] [address] Care Team Providers Name Role Phone Lovely Vicente MD Primary Care Provider Reason for Visit Reason Comments Nevus excision dysplastic nevus mi d upper abdomen Encounter Details Date Type Department Care Team Description 12/03/2016 Procedure visit Dermatology at [facility] Dysplastic nevus of Road MD Adrián trunk [address] [facility] [address] [facility] [phone] [address] [address] Social History Tobacco Use Types Packs/Day Years [...] Halima Cordero MD during the day at [phone] Nurse: Mira [phone] Amy After 5 PM and on weekends, please call the hospital number , and ask for the Customer Care Assistant cotton ball bagger. documented in this encounter Progress Notes Halima Cordero MD - 12/10/2016 5:41 PM EDT Gwendolyn, Excision shows scar, there is no residual of the severely dysplastic nevus. Please notify patient and check on wound healing. Thank you, DTB Halima Cordero MD - 12/03/2016 3:00 PM EDT Images from the original note were not included. Dermatology Procedure note: Attending: Halima Cordero MD Oil Well Driller: Mira James LPN Referring MD: Rigoberto Garcia [...] to call the clinic or the on-call framing mechanic over the weekend. ??? Name of [...] Cardiology Zulma Dolan MD [facility] [place], [place] [address] (Wo rk) 05/28/2022 Laboratory Appointment Lab 05/28/2022 Office Visit Cardiology Zulma Dolan [place] [facility] [place] [address] Liz Poole PA [facility] [place] [address] 06/10/2022 Office Visit Dermatology Laura Scherer MD [facility] DR [address], [place] 0[address] (Wo rk) documented as of [...] Component Value Ref Test Analysis Performed At [facility] Method Time Signature Surgical [id number] ?Location: [facility] The signing pathologist has (i) examined [...] Clinical Diagnosis: Dysplastic nevus, see previous pathology [id number] SPECIMEN PROCESSING A - Labeled/Fixative: Mid-upper abdomen, [...] City/State/[place] [address] Specimen to Pathology (NON-OR) [...] City/State/[place] [address] documented in this encounter Visit Diagnoses Diagnosis Dysplastic nevus of trunk Benign neoplasm of skin of trunk, except scrotum documented in this encounter Care Teams Science Teacher Relationship Specialty Start Date End Date Lovely Vicente MD PCP - General 04/16/15 [address] [place] [address] documented as of this encounter
--- OUTSIDE RECORDS SUMMARY | 2022-05-08 02:30 | XMS_ITS | Encounter Summary ---
:1945 [place] [address] Care Team Providers Name Role Phone Holley Hollidayica STACIE Primary Care Provider Encounter Details Date Type Department Care Team Description 03/28/2013 - [facility] 03/29/2013 Barbara Gomes MD Dx) [facility] [place] [address] [phone] Social History Tobacco Use Types Packs/Day Years [...] please call the General Surgery nurse at [phone], since this may mean that you need morecalcium. Follow-up Appointment: Will be scheduled with Dr. Mcknight in 6 weeks Date and time as well as any required labs will be mailed to you Please call [phone] to confirm date and time of your [...] by calcium supplementation. Phone number for questions: [phone] before 5 PM weekdays [phone] after 5 PM and on weekends/holidays Please follow up with Urology as per their recommendations for Bob removal AttachmentsThe following attachments cannot be sent through Care Everywhere. THYROIDECTOMY: WHAT TO EXPECT AT HOME (BOLIVIAN)URINARY CATHETER CARE: AFTER YOUR VISIT (BOLIVIAN)documented in this encounter Medications at Time of [...] is a 68 y.o. male presents to [facility] today for total thyroidectomy. See [...] Willams MD - 03/28/2013 3:43 PM EDT [facility] Operative Note Patient Name: Gregory Fatima : [id number] MR#: [id number] Case Date: 03/28/2013 Surgeon: Surgeon(s) and Role: [...] patient was extubated and taken to the [facility] in stable condition. At the [...] Operative Note Patient Name: Gregory Fatima : [id number] MR#: [id number] Case Date: 03/28/2013 Surgeon: Surgeon(s) and Role: [...] MD [facility] er [address] [place] [address] (Wo rk) 05/28/2022 Laboratory Appointment Lab 05/28/2022 Office Visit Cardiology Zulma Dolan MD [facility] [place] [address] Liz Poole PA [facility] [place] [address] 06/10/2022 Office Visit Dermatology Laura Scherer MD [facility] ER DR [address]JA [address] [address] (Wo rk) documented as of this encounter [...] Organization Address City/State/[place] [address] CERNER MILLENNIUM (ABNORMAL) POCT [...] CARE TEST ORDERABLE S Performing Organization Address City/[facility]/[place] [address] CERNER MILLENNIUM (ABNORMAL) POCT [...] CARE TEST ORDERABLE S Performing Organization Address City/[facility]/ZIP Code Phon e Number [address] CERNER MILLENNIUM (ABNORMAL) [...] CARE TEST ORDERABLE S Performing Organization Address City/[facility]/ZIP Code Phon e Number [address] CERNER MILLENNIUM (ABNORMAL) [...] CARE TEST ORDERABLE S Performing Organization Address City/[facility]/ZIP Code Phon e Number [address] CERNER MILLENNIUM (ABNORMAL) [...] CARE TEST ORDERABLE S Performing Organization Address City/[facility]/ZIP Code Phon e Number [address] CERNER MILLENNIUM (ABNORMAL) [...] CARE TEST ORDERABLE S Performing Organization Address City/[facility]/ZIP Code Phon e Number [address] CERNER MILLENNIUM (ABNORMAL) [...] CARE TEST ORDERABLE S Performing Organization Address City/[facility]/ZIP Code Phon e Number [address] [facility] Specimen to [...] Address City/[facility]/ZIP Code Phon e Number [address] [facility] Pathology Addendum Report (03/28/2013 12:03 PM EDT) Component Value Ref Test Analysis Performed At [facility] gist Range Method Time Signature Addendum CERNER Report ? [facility] ? Provider: ?? MESHA MCKNIGHT Pt. Name: ?? GREGORY FATIMA ? Acc #: ?[id number] ?Pt. MRN: ?[id number] ? Col Date: ?? 03/28/2013 ?/Sex: ?1945,(68 [...] Address City/State/[place] [address] [facility] Surgical Pathology Report (03/28/2013 12:03 PM EDT) Component Value Ref Test Analysis Performed At [facility] gist Range Method Time Signature Surgical [facility] Pathology ? [facility] Report ? Provider: ?? MESHA MCKNIGHT Pt. Name: ?? GREGORY FATIMA ? Acc #: ?[id number] ?Pt. MRN: ?[id number] ? Col Date: ?? 03/28/2013 ?/Sex: ?1945,(68 [...] areas of hemorrhage and ? calcifications. ? [facility] ? Provider: ?? MESHA MCKNIGHT Pt. Name: ?? GREGORY FATIMA ? Acc #: ?[id number] ?Pt. MRN: ?[id number] ? Col Date: ?? 03/28/2013 ?/Sex: ?1945,(68 years),Male ? Rec Date: ?? 03/28/2013 ?LOC: ?[facility] ? SURGICAL PATHOLOGY ? SECTIONS/PROCESSING: Ply Splicer sections are subm itted. (R6) ? B [...] Address City/State/[place] [address] CERNER MILLENNIUM Frozen Section Report (03/28/2013 12:03 PM EDT) Component Value Ref Test Analysis Performed At [facility] gist Range Method Time Signature Frozen CERNER Section ? [facility] ? Provider: ?? MESHA MCKNIGHT Pt. Name: ?? GREGORY FATIMA ? Acc #: ?[id number] ?Pt. MRN: ?[id number] ? Col Date: ?? 03/28/2013 ?/Sex: ?1945,(68 [...] Address City/[facility]/[place] [address] CERNER MILLENNIUM POCT Glucose [...] CARE TEST ORDERABLE S Performing Organization Address City/[facility]/ZIP Code Phon e Number [address] CERNER MILLENNIUM Specimen [...] Address City/[facility]/[place] [address] CERNER MILLENNIUM Antibody screen (03/28/2013 9:37 AM EDT) Analysis Performed At Patho logist Time Signature Ab Screen Negative CERNER Interp MILLENNIUM Expires at [id number] CERNER 501 on: MILLENNIUM Specimen Anatomical Collection Method Collection Time Receive d Time (Source) Location / / Volume Laterality Blood specimen 03/28/2013 9:37 AM 013 9:37 (specimen) EDT AM EDT Resulting Agency Comment Spec In Lab Mesha Mcknight MD BLOOD BANK ORDERABLES Performing Organization Address City/[facility]/[place] [address] [facility] ABO/Rh Typing (03/28/2013 9:37 AM EDT) athologist Signature ABORh Type O Pos [facility] Specimen Anatomical Collection Method Collection Time Receive d Time (Source) Location / / Volume Laterality Blood specimen 03/28/2013 9:37 AM 013 9:37 (specimen) EDT AM EDT Resulting Agency Comment Spec In Lab Mesha Mcknight MD BLOOD BANK ORDERABLES Performing Organization Address City/[facility]/ZIP Code Phon e Number [address] [facility] Differential, Automated (03/28/2013 9:34 AM EDT) athologist [...] City/State/ZIP Code Phon e Number [place] [id number]OSPITAL LAB[address] CERNER MILLENNIUM (ABNORMAL) Basic [...] intervals supplied above were not validated at [facility]. Results from pediatri c patients should be [...] Address City/State/[place] [address] CERNER MILLENNIUM (ABNORMAL) CBC [...] 9.3 9.0 - 12.0 CERNER fL [facility] Specimen Anatomical Collection Method Collection Time Receive d Time (Source) Location / / Volume Laterality Blood specimen 03/28/2013 9:34 AM 013 9:38 (specimen) EDT AM EDT Resulting Agency Comment Spec In Lab Mesha Mcknight MD HEMATOLOGY ORDERABLES Performing Organization Address City/[facility]/ZIP Code Phon e Number [address] [facility] POCT Glucose (03/28/2013 9:17 AM EDT) athologist Signature POC Glucose 108 60 - 199 CERNER mg/dL [facility] Comment: Supplemental ranges: <110 mg/dL before meals <200 mg/dL all other times of the day Specimen Anatomical Collection Method Collection Time Receive d Time (Source) Location / / Volume Laterality Blood specimen 03/28/2013 9:17 AM 013 9:17 (specimen) EDT AM EDT Mesha Mcknight MD POINT OF CARE TEST ORDERABLE S Performing Organization Address City/[facility]/ZIP Code Phon e Number [address] [facility] Specimen to Pathology (surgical or derm) (03/28/2013 8:55 AM EDT) Specimen Anatomical Collection Method Collection Time Receive d Time (Source) Location / / Volume Laterality AP Specimen 03/28/2013 8:55 AM 3 8:54 EDT AM EDT Narrative [facility] - 03/28/2013 8:55 AM E DT Specimen requisition ordered. ??Separate Pathology report to follow Mesha Mcknight MD PATHOLOGY/CYTOLOGY ORDERABLE S Performing Organization Address City/[facility]/ZIP Code Phon e Number [address] [facility] documented in this encounter [...] Radha Yao [facility], RN) 2.5 mg, Oral, [...] override documented in this encounter Care Teams Getterer Relationship Specialty Start Date End Date Angela Holliday APRN PCP - General 01/25/13 04/15/15 [address] [place] [address] documented as of this encounter
--- OUTSIDE RECORDS SUMMARY | 2022-05-08 02:30 | XMS_ITS | Encounter Summary ---
:1945 [place] [address] Care Team Providers Name Role Phone Lovely Vicente MD Primary Care Provider Reason for Visit Reason Onset Date Comments Other 12/09/2016 RESULTS Encounter Details Date Type Department Care Team Description 12/09/2016 Telephone Dermatology at [facility] Halima Cadet MD Other (RESULTS) [address] [facility] [place] [address] [facility]-DER[facility] [phone] [place], [place] [address] (Wo rk) Social History Tobacco [...] EDT Spoke with patient's , Kisha (personal traveling representative). I advised her Don's pathology results [...] back. She can be reached back at [phone] documented in this encounter Plan of Treatment Upcoming Encounters Date Type Specialty Care Team Description 05/28/2022 Appointment Cardiology Zulma Dolan MD [facility] [address] [place], [place] [address] (Wo rk) 05/28/2022 Laboratory Appointment Lab 05/28/2022 Office Visit Cardiology Zulma Dolan MD [facility] [place] [address] Liz Poole PA [facility] [place] [address] 06/10/2022 Office Visit Dermatology Laura Scherer MD [facility] DR [address] [place], [place] [address] (Wo rk) documented as of this encounter Visit Diagnoses Not on filedocumented in this encounter Care Teams Preflight Mechanic Relationship Specialty Start Date End Date Lovely Vicente MD PCP - General 04/16/[address] [place] [address] documented as of this encounter
--- OUTSIDE RECORDS SUMMARY | 2022-05-08 02:30 | XMS_ITS | Encounter Summary ---
:1945 Author Organization [facility] [place] [address] Care Team Providers Name Role Phone Lovely Vicente MD Primary Care Provider Reason for Visit Reason Comments Skin Check Encounter Details Date Type Department Care Team Description 04/16/2015 Follow-Up Dermatology at Rigoberto Forman x of melanoma of skin; Abdelrahman HOOPER MD Multiple benign nevi [address] [place] [address] [facility]DER[facility] [place], [place] [address] (Wo rk) Social History Tobacco [...] Dolan MD [facility] [place], [place] [address] (Wo rk) 05/28/2022 Laboratory Appointment Lab 05/28/2022 Office Visit Cardiology Zulma Dolan MD [facility] [place] [address] Liz Poole PA [facility] [place] [address] 06/10/2022 Office Visit Dermatology Laura Scherer MD [facility] [address] [place], [place] [address] (Wo rk) documented as of this encounter Visit Diagnoses Diagnosis Hx of melanoma of skin Personal history of malignant melanoma o f skin Multiple benign nevi Benign neoplasm of skin, site unspecifie d documented in this encounter Care Teams Pneumatic Jacketer Relationship Specialty Start Date End Date Lovely Vicente MD PCP - General 04/16/[address] [place] [address] [address] [place] [address] documented as of this encounter
--- OUTSIDE RECORDS SUMMARY | 2022-05-08 02:30 | XMS_ITS | Encounter Summary ---
:1945 Author Organization [facility] [place] [address] Care Team Providers Name Role Phone MiyaLokeshAngela STACIE Primary Care Provider Encounter Details Date Type Department Care Team Description 04/04/2013 Orders Only General Surgery at Manny Mcknight thyroid [facility] MD Eliseo carcinoma (Primary Dx) [facility] [place] [address] GENERAL SURGERY [phone] [place], [place] [address] Social History Tobacco Use [...] MD [facility] er [place], [place] [address] (Wo rk) 05/28/2022 Laboratory Appointment Lab 05/28/2022 Office Visit Cardiology Zulma Dolan MD [facility] [place] [address] Liz Poole PA [facility] [place] [address] 06/10/2022 Office Visit Dermatology Laura Scherer MD [facility] DR [address] [place], [place] [address] (Wo rk) documented as of this encounter Visit Diagnoses Diagnosis Papillary thyroid carcinoma - Primary Malignant neoplasm of thyroid gland documented in this encounter Care Teams Automobile Spring Repairer Relationship Specialty Start Date End Date Angela Holliday APRN PCP - General 01/25/13 04/15/[address] [place] [address] documented as of this encounter
--- OUTSIDE RECORDS SUMMARY | 2022-05-08 02:30 | XMS_ITS | Encounter Summary ---
:1945 Author Organization [facility] [place] [address] Care Team Providers Name Role Phone MiyaAngela STACIE Primary Care Provider Reason for Visit Reason Comments Urinary Retention Encounter Details Date Type Department Care Team Description 05/16/2013 Follow-Up Urology at [facility] Blade Smith, Retention of urine [facility] (Primary Dx) [place] [address] UROLOGY DEPT [place] [id number] (Wo rk) Social History Tobacco Use Types [...] Dolan MD [facility] Dr [place], [place] [address] (Wo rk) 05/28/2022 Laboratory Appointment Lab 05/28/2022 Office Visit Cardiology Zulma Dolan MD [facility] [place] [address] Liz Poole PA [facility] [place] [address] 06/10/2022 Office Visit Dermatology Laura Scherer MD [facility] [address] GR[address], [place] [address] (Wo rk) documented as of this encounter Visit Diagnoses Diagnosis Retention of urine - Primary Retention of urine, unspecified documented in this encounter Care Teams Order Department Supervisor Relationship Specialty Start Date End Date Angela Holliday APRN PCP - General 01/25/13 04/15/[address] [place] [address] documented as of this encounter
--- OUTSIDE RECORDS SUMMARY | 2022-05-08 02:30 | XMS_ITS | Encounter Summary ---
:1945 Author Organization [place] [address] Care Team Providers Name Role Phone Angela Holliday APRN Primary Care Provider Reason for Visit Reason Comments Benign Prostatic Hypertrophy Encounter Details Date Type Department Care Team Description 11/28/2013 Follow-Up Urology at [facility] Blade Smith, Urinary retention (Primary D x); [facility] BPH (benign prostatic hyperplasia) [place] [address] UROLOGY DEPT [place], [place] [address] (Wo rk) Social History Tobacco [...] Dolan MD [facility] [address] [place], [place] [address] (Wo rk) 05/28/2022 Laboratory Appointment Lab 05/28/2022 Office Visit Cardiology Zulma Dolan MD [facility] [place] [address] Liz Poole PA [facility] [place] [address] 06/10/2022 Office Visit Dermatology Laura Scherer MD [facility] DR TEJA GR[place], [place] [...] Organization Address City/State/[place] [address] CERNER MILLENNIUM documented in this encounter Visit Diagnoses Diagnosis Urinary retention - Primary Retention of urine, unspecified BPH (benign prostatic hyperplasia) Unspecified hyperplasia of prostate with out urinary obstruction and other lower urinary tract symptoms (LUTS) documented in this encounter Care Teams Adjutant General Relationship Specialty Start Date End Date Angela Holliday APRN PCP - General 01/25/13 04/15/[address] [place] [address] documented as of this encounter
--- OUTSIDE RECORDS SUMMARY | 2022-05-08 02:30 | XMS_ITS | Encounter Summary ---
:1945 Author Organization [facility] [place] [address] Care Team Providers Name Role Phone Lovely Vicente MD Primary Care Provider Reason for Visit Reason Comments Skin Lesion Encounter Details Date Type Department Care Team Description 11/24/2016 [facility] of uncertain behavior of skin; Road IIIMD Pigmented skin lesion of uncertain natur e; [address] [facility] [place] [address] [facility] SIMÓN-DERMATOLGY [place], [place] [address] Social History Tobacco Use Types [...] or concerns, please call the office at [phone]. If it is after 5PM, or a holiday or weekend, please call [phone] and ask for the Rn Clinical Research on-call. documented in this encounter Progress Notes [...] 71 y.o. year old male.Established patient of 6fusion. Last seen 06/05/16. Here today for new [...] Dolan MD [facility] er [place]NA [place] 0375 (Wo rk) 05/28/2022 Laboratory Appointment Lab 05/28/2022 Office Visit Cardiology Zulma Dolan MD [facility] [place] [address] [facility] [place] [address] 06/10/2022 Office Visit Dermatology Laura Scherer MD [facility] ER DR [address]-DERMAT OLOGY [place], [place] [address] (Wo rk) documented as of [...] Component Value Ref Test Analysis Performed At [facility] gist Range Method Time Signature Surgical [id number] ?Location: [facility] [...] Address City/State/[place] [address] Specimen to Pathology (NON-OR) (11/24/2016 8:28 AM EDT) Specimen Anatomical Collection Method Collection Time Receive d Time (Source) Location / / Volume Laterality AP Specimen 11/24/2016 8:28 AM 7 9:29 EDT AM EDT Narrative [facility] - 11/24/2016 9:29 AM EDT Specimen requisition ordered. ??Separate Pathology report to follow Resulting Agency Comment Spec In Lab Rigoberto Garcia III, MD PATHOLOGY/CYTOLOGY ORDERABLE S Performing Organization Address City/State/[place] [address] documented in this encounter Visit Diagnoses Diagnosis Neoplasm of uncertain behavior of skin Pigmented skin lesion of uncertain natur e History of melanoma Personal history of malignant melanoma o f skin documented in this encounter Care Teams Flight Steward Relationship Specialty Start Date End Date Lovely Vicente MD PCP - General 04/16/[address] [place] [address] documented as of this encounter
--- OUTSIDE RECORDS SUMMARY | 2022-05-08 02:30 | XMS_ITS | Encounter Summary ---
:1945 Author Organization [facility] [place] [address] Care Team Providers Name Role Phone MiyaAngela STACIE Primary Care Provider Encounter Details Date Type Department Care Team Description 11/27/2013 Orders Only Urology at [facility] Blade Smith, Urinary retention [facility] (Primary Dx) [place] [address] UROLOGY DEPT [place], [place] [address] Social History Tobacco Use Types [...] MD [facility] er [place], [place] [address] (Wo rk) 05/28/2022 Laboratory Appointment Lab 05/28/2022 Office Visit Cardiology Zulma Dolan MD [facility] [place] [address] Liz Po[address] PA [facility] [place] [address] 06/10/2022 Office Visit Dermatology Laura Scherer MD [facility] ER DR TEJA GR-DERMAT OLOGY [place], [place] 0375 (Wo rk) documented as of [...] Organization Address City/State/[place] [address] CERNER MILLENNIUM documented in this encounter Visit Diagnoses Diagnosis Urinary retention - Primary Retention of urine, unspecified documented in this encounter Care Teams Clinical Rehabilitation Liaison Relationship Specialty Start Date End Date Angela Holliday APRN PCP - General 01/25/13 04/15/[address] [place] [address] documented as of this encounter
--- OUTSIDE RECORDS SUMMARY | 2022-05-08 02:30 | XMS_ITS | Encounter Summary ---
:1945 Author Organization [facility] [place] [address] Care Team Providers Name Role Phone MiyaLokeshAngela STACIE Primary Care Provider Encounter Details Date Type Department Care Team Description 01/16/2014 Hospital Encounter Gastroenterology at [facility] Nohemi Swann, [facility] [place] [address] [facility] [phone] [facility] DEPT. [place], [place] [address] Social History Tobacco Use [...] you need to be checked. [facility] [phone] 8a-5p Same Day Endo [phone] 7a-8p Otherwise contact [phone] and ask to speak to the tenant coordinator menswear salesperson Follow up care is a [place] part [...] Swann MD - 01/16/2014 9:49 AM EDT [facility] Operative Note Patient Name: Gregory Fatima : [id number] MR#: [id number] Case Date: 01/16/2014 Surgeon: Surgeon(s) and Role: * Nohemi Swann MD - Primary Preoperative diagnosis: 5 yr surv. Full procedure note is documented under the Procedure section of eDH. documented in this encounter Plan of Treatment Upcoming Encounters Date Type Specialty Care Team Description 05/28/2022 Appointment Cardiology Zulma Dolan MD [facility] Dr [place], [place] [address] (Wo rk) 05/28/2022 Laboratory Appointment Lab 05/28/2022 Office Visit Cardiology Zulma Dolan MD [facility] [place] [address] Liz Poole PA [facility] [place] [address] 06/10/2022 Office Visit Dermatology Laura Scherer MD [facility] DR TEJA GR-DERMAT [place], [place] [address] (Wo rk) documented as of this encounter [...] (01/16/2014 9:53 AM EDT) [facility] Method Time Signature Surgical CERNER Pathology ? [facility] Report ? Provider: ?? NOHEMI SWANN ?Pt. Name: ?? MALICKEliseo RT, GREGORY E ? Acc #: ?[id number] ?Pt. MRN: ?[id number] ? Col Date: ?? 4 ? /Sex: [...] Organization Address City/State/ZIP Code Phon e Number [place] [phone]OSPITAL LAB[address] RAKESH WALKER Specimen to [...] Organization Address City/State/[place] [address] [facility] Specimen to Pathology (surgical [...] MD PATHOLOGY/CYTOLOGY ORDERABLE S Performing Organization Address City/[facility]/[place] [address] CERNER MILLENNIUM COLONOSCOPY (01/16/2014 7:25 AM EDT) [facility] gist Method Time Signature COLONOSCOPY [facility] PROVATION Endoscopy Patient Name: Gregory Fatima ? Procedure Date: 01/16/2014 7:25 AM ? N: [id number] ? Date of : 1945 ? Age: 68 ? Order #: [id number] ? Procedure: ? Colonoscopy Indications: ? High risk colon cancer surveillance : ? 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 dm on metformin with bs ~ 110 this ? am,s/p melanoma years ago, os a, ? goiter s/p surgery, [facility] Providers: ? Nohemi Swann MD, [...] Laterality 01/16/2014 7:25 AM EDT Angela Sotelo WARM IN GENERAL SURGICAL ORDERABLES Performing Organization Address City/State/ZIP [...] Routine documented in this encounter Care Teams Vest Backer Relationship Specialty Start Date End Date Angela Sotelo APRN PCP - General 01/25/13 04/15/[address] [place] [address] documented as of this encounter
--- OUTSIDE RECORDS SUMMARY | 2022-05-08 02:30 | XMS_ITS | Encounter Summary ---
:1945 Author Organization [facility] [address] Care Team Providers Name Role Phone Angela Holliday APRN Primary Care Provider Reason for Visit Reason Comments Skin Check Encounter Details Date Type Department Care Team Description 07/31/2013 Follow-Up Dermatology at Rigoberto Forman eoplasm of unspecified nature of bone, soft tissue, and skin (Primary Dx); Abdelrahman HOOPER MD Seborrheic psoriasis- scalp and ingtergl uteal area; [address] [facility] Atypical nevus [place] [address] [facility]-DER[facility] [place], [place] [address] (Wo rk) Social History [...] encounter. Rigoberto Albarran MD Section of Dermatology [facility] documented in this encounter Plan of Treatment Upcoming Encounters Date Type Specialty Care Team Description 05/28/2022 Appointment Cardiology Zumla Dolan MD [facility] Dr [place] [address] (Wo lissa) 05/28/2022 Laboratory Appointment Lab 05/28/2022 Office Visit Cardiology Zulma Dolan MD [facility] [place] [address] Liz Poole PA [facility] [place] [address] 06/10/2022 Office Visit Dermatology Laura Scherer MD [facility] DR TEJA GR-DERMAT OLOGY [place], [place] [address] (Wo rk) Scheduled Orders Name [...] [place] gist Range Method Time Signature Surgical CERNER Pathology ? [facility] Report ? Provider: ?? RIGOBERTO ALBARRAN III Pt. Name: ?? GREGORY HOANG ?A ? Acc #: ?[id number] ? Pt. ? Col Date: ?? 07/31/2013 [...] controls. ??These ? IHC studies provide [facility] pathologist with adjunctive diagnostic information. [...] 0.9 x 0.8 x 0.2 cm. ? [facility] ? Provider: ?? DEION III, RIGOBERTO Pt. Name: ?? GREGORY HOANG ?A ? Acc #: ?[id number] ? Pt. ? Col Date: ?? 07/31/2013 [...] Medical Center/ZIP Code Phon e Number [address] CERNER MILLENNIUM Specimen to [...] [facility]/[place] [address] CERNER MILLENNIUM documented in this encounter Visit Diagnoses Diagnosis Neoplasm of unspecified nature of bone, soft tissue, and skin - Primary Seborrheic psoriasis- scalp and ingtergl uteal area Other psoriasis Atypical nevus of abdominal wall Benign neoplasm of skin of trunk, except scrotum documented in this encounter Care Teams Provider Network Manager Relationship Specialty Start Date End Date Angela Holliday APRN PCP - General 01/25/13 04/15/[address] [place] [address] documented as of this encounter
--- OUTSIDE RECORDS SUMMARY | 2022-05-08 02:30 | XMS_ITS | Encounter Summary ---
:1945 Author Organization [facility] [place] [address] Care Team Providers Name Role Phone Som Holliday APRN Primary Care Provider Encounter Details Date Type Department Care Team Description 04/11/2014 Procedure visit G[facility]ology at [facility] Esophageal reflux [facility] Luz Winchester RN (Primary Dx) [place] [address] Social History Tobacco Use Types Packs/Day Years Used Date Former Smoker Alcohol Use Standard Drinks/Week Comments No 0 (1 standard drink = 0.6 oz pure alcoho l) Sex Assigned at Date Recorded Not on file documented as of this encounter Progress Notes Adalid Can MD - 04/13/2014 3:43 PM EDT ESOPHAGEAL MANOMETRY Don Fatima Male, 69 yrs, 1945 PCP: SOM HOLLIDAY AUTOMOBILE BODY WORKER: NONE STUDY DATE: 04/11/14 PROVIDER: Adalid Can, PhD, [place] ([id number]) INDICATION Reflux; preoperative evaluation. METHODS Stationary esophageal manometry was performed with the [employer] esophageal motility system utilizing the Polygram software [...] of the esophagus. Adalid Can, PhD, MD ct scan technician, [facility] Section of Gastroenterology and Hepatology [facility] [place] [address] V: [phone] F: [phone] [facility]/gabriela CC/EC: PCP - staff msg copy 04/13/14 Henrique Taylor MD - fax copy 04/13/14 Luz Keller RN - 04/11/2014 8:14 AM EDT Esophageal manometry performed without difficulty and Was well tolerated. documented in this encounter Plan of Treatment Upcoming Encounters Date Type Specialty Care Team Description 05/28/2022 Appointment Cardiology Zulma Dolan MD [facility] [place], [place] [address] (Wo rk) 05/28/2022 Laboratory Appointment Lab 05/28/2022 Office Visit Cardiology Zulma Dolan MD [facility] [place] [address] Liz Poole PA [facility] [address] 06/10/2022 Office Visit Dermatology Laura Scherer MD [facility] DR TEJA GR-DERMAT [place], [place] [address] (Wo rk) documented as of this encounter Visit Diagnoses Diagnosis Esophageal reflux - Primary documented in this encounter Care Teams Fuel Oil Clerk Relationship Specialty Start Date End Date Som Holliday APRN PCP - General 01/25/13 04/15/[address] [place] [address] documented as of this encounter
--- OUTSIDE RECORDS SUMMARY | 2022-05-08 02:30 | XMS_ITS | Encounter Summary ---
:1945 Author Organization [facility] [place] [address] Care Team Providers Name Role Phone Lovely Vicente MD Primary Care Provider Reason for Visit Reason Onset Date Comments Medication Refill 12/24/2016 Encounter Details Date Type Department Care Team Description 12/24/2016 Refill Endocrinology at [facility] Luz Stallings MD [facility] [place] [address] ENDOCRINOLOGY DEPT [phone] [place], [place] [address] (Wo rk) Social [...] MD [facility] er [address] [place] 0[address] (Wo rk) 05/28/2022 Laboratory Appointment Lab 05/28/2022 Office Visit Cardiology Zulma Dolan MD [facility] [place] [address] Liz Poole PA [facility] [place] [address] 06/10/2022 Office Visit Dermatology Laura Scherer MD [facility] DR TEJA GR-DERMAT [place], [place] [address] (Wo rk) documented as of this encounter Visit Diagnoses Not on filedocumented in this encounter Care Teams Paleologist Relationship Specialty Start Date End Date Lovely Vicente MD PCP - General 04/16/[address] [place], [place] [address] documented as of this encounter
--- OUTSIDE RECORDS SUMMARY | 2022-05-08 02:30 | XMS_ITS | Encounter Summary ---
:1945 Author Organization [facility] [place] [address] Care Team Providers Name Role Phone Lovely Vicente MD Primary Care Provider Encounter Details Date Type Department Care Team Description 09/03/2016 Office Visit Endocrinology at [facility] Maria Ines Stallings of [facility] MD [place] [address] [place] [address] ENDOCRINOLOGY DEPT [place], [place] [address] Social History Tobacco Use Types [...] to his magnesium pill. LUZ PRESCOTT MD Crane Hoist Or Lift Operatorautomatic clipper Section of Endocrinology [facility] Luz Prescott MD - 09/03/2016 11:30 AM [...] sonographic evidence of recurrence. LUZ PRESCOTT MD Crane Hoist Or Lift Operatorautomatic clipper Section of Endocrinology [facility] documented in this encounter Plan of Treatment Upcoming Encounters Date Type Specialty Care Team Description 05/28/2022 Appointment Cardiology Zulma Dolan MD [facility] Dr [place], [place] [address] (Wo rk) 05/28/2022 Laboratory Appointment Lab 05/28/2022 Office Visit Cardiology Zulma Dolan MD [facility] [place] [place] [address] Liz Poole PA [facility] [place] [address] 06/10/2022 Office Visit Dermatology Laura Scherer MD [facility] DR TEJA GR-DERMAT [place], [place] [address] (Wo rk) documented as of this encounter Results Thyroglobulin (09/07/2017 2:41 PM EST) P athologist Signature Thyroglobulin 1.4 <=54.9 KATALINA RYAN ng/mL [facility] Comment: Thyroglobulin levels may be unreliable a nd falsely low in TgAb positive samples (TgAb <20 is consistent with TgAb negati vity). If Tg Antibodies are present an alternative Tg assay performed via mass spectrometry may be indicated. ??A clinical cutoff of <2.0 ng/ml should be used for athyrotic individuals. Pediatric reference ranges have not been established. Assay performed using the [employer]esen Immulite T g immunometric assay (lowest detection [...] City/[facility]/ZIP Code Phon e Number [address] TSH (09/07/2017 2:41 PM EST) athologist Signature TSH 3.93 0.27 - 4.20 [facility] mlU/ML [facility] Specimen Anatomical Collection Method Collection Time Receive d Time (Source) Location / / Volume Laterality Blood specimen 09/07/2017 2:41 PM 018 2:46 (specimen) EST PM EST Resulting Agency Comment Spec In Lab Luz Prescott MD CHEMISTRY ORDERABLES Performing Organization Address City/[facility] Phon e Number [address] Thyroglobulin (09/03/2016 11:07 AM EST) athologist Signature Thyroglobulin <0.4 <=54.9 [facility] ng/mL [facility] Comment: Interpret with caution. [...] than those obtained with T4 withdrawal protocol (Orwell BR et al. J Clin Endo Metab 1999;84:3443-9979). Assay performed using the DPC Immulite T [...] City/[facility]/ZIP Code Phon e Number [address] TSH (09/03/2016 11:07 AM EST) P athologist Signature TSH 3.01 0.27 - 4.20 [facility] mcIU/mL [facility] Specimen Anatomical Collection Method Collection Time Receive d Time (Source) Location / / Volume Laterality Blood specimen 09/03/2016 11:07 7 (specimen) AM EST 11:22 AM EST Resulting Agency Comment Spec In Lab Luz Prescott MD CHEMISTRY ORDERABLES Performing Organization Address City/[facility]/ZIP [place] [address] documented in this encounter Visit Diagnoses Diagnosis Hx of papillary thyroid carcinoma Personal history of malignant neoplasm o f thyroid documented in this encounter Care Teams Manufacturing Baker Relationship Specialty Start Date End Date Lovely Vicente MD PCP - General 04/16/[address] [place] [address] documented as of this encounter
--- OUTSIDE RECORDS SUMMARY | 2022-05-08 02:30 | XMS_ITS | Encounter Summary ---
:1945 Author Organization [facility] [place] [address] Care Team Providers Name Role Phone Angela Holliday APRN Primary Care Provider Reason for Visit Reason Onset Date Comments Other 03/30/2013 blood in catheter ba g Encounter Details Date Type Department Care Team Description 03/30/2013 Telephone General Surgery at [facility] Janneth Sharma, Other (blood in [facility] RN catheter bag) [place] [address] Social History Tobacco Use Types Packs/Day [...] Appointment Cardiology Zulma Dolan MD [facility] [place], [place] [address] (Wo rk) 05/28/2022 Laboratory Appointment Lab 05/28/2022 Office Visit Cardiology Zulma Dolan MD [facility] [place] [address] Liz Poole PA [facility] [place]iology [place] [address] 06/10/2022 Office Visit Dermatology Laura Scherer MD [facility] DR TEJA GR-DERMAT [place], [place] [address] (Wo rk) documented as of this encounter Visit Diagnoses Not on filedocumented in this encounter Care Teams Machine Clipper Relationship Specialty Start Date End Date Angela Holliday APRN PCP - General 01/25/13 04/15/[address] [place] [address] documented as of this encounter
--- OUTSIDE RECORDS SUMMARY | 2022-05-08 02:30 | XMS_ITS | Encounter Summary ---
:1945 Author Organization [facility] [place] [address] Care Team Providers Name Role Phone MiyaAngela STACIE Primary Care Provider Reason for Visit Reason Onset Date Comments Advice Only 03/31/2013 Encounter Details Date Type Department Care Team Description 03/31/2013 Telephone Urology at [place] Daniele Trejo III, MD Advice Only One [facility] [place] [address] [place] [id number] [phone] (Wo rk) Social History Tobacco Use Types Packs/Day Years Used Date Former Smoker Alcohol Use Standard Drinks/Week Comments No 0 (1 standard drink = 0.6 oz pure alcoho l) Sex Assigned at Date Recorded Not on file documented as of this encounter Miscellaneous Notes Telephone Encounter - Danieel Trejo III, MD - 03/31/2013 11:07 AM [...] Zulma Dolan MD [facility] [place], [place] [address] (Wo rk) 05/28/2022 Laboratory Appointment Lab 05/28/2022 Office Visit Cardiology Zulma Dolan MD [facility] [place] [address] Liz Poole PA [facility] [place] [address] 06/10/2022 Office Visit Dermatology Laura Scherer MD [facility] DR TEJA GR-DERMAT [place], [place] [address] (Wo rk) documented as of this encounter Visit Diagnoses Not on filedocumented in this encounter Care Teams Radiophone Operator Relationship Specialty Start Date End Date Angela Holliday APRN PCP - General 01/25/13 04/15/[address] [place] [address] documented as of this encounter
--- OUTSIDE RECORDS SUMMARY | 2022-05-08 02:30 | XMS_ITS | Encounter Summary ---
:1945 Author Organization [place] [address] Care Team Providers Name Role Phone Lovely Vicente MD Primary Care Provider Reason for Visit Reason Onset Date Comments Referral 10/30/2015 Urgent referral for mac on [address] [place]AV[place] Encounter Details Date Type Department Care Team Description 10/30/2015 Telephone Ophthalmology at [facility] C Jayson Ruiz Referral (Urgent [facility] MD Grabiel referral for mac on [facility] DR SIM[address] [place]) [place] [address] OPHTHALMOLOGY DEPT. [phone] [place], [place] [address] (Wo rk) Social History Tobacco [...] AM - NPO for possible surgery. Dr. Harrsion's office advised. documented in this encounter Plan of Treatment Upcoming Encounters Date Type Specialty Care Team Description 05/28/2022 Appointment Cardiology Zulma Dolan MD [facility] Dr [place], [place] [address] (Wo rk) 05/28/2022 Laboratory Appointment Lab 05/28/2022 Office Visit Cardiology Zulma Dolan MD [facility] [place] [address] Liz Poole PA [facility] [place] [address] 06/10/2022 Office Visit Dermatology Laura Scherer MD [facility] DR TEJA GR-DERMAT [place], [place] [address] (Wo rk) documented as of this encounter Visit Diagnoses Not on filedocumented in this encounter Care Teams Medical Billing Coder Relationship Specialty Start Date End Date Lovely Vicente MD PCP - General 04/16/[address] [place], [place] [address] documented as of this encounter
--- OUTSIDE RECORDS SUMMARY | 2022-05-08 02:30 | XMS_ITS | Encounter Summary ---
:1945 Author Organization [facility] [place] [address] Care Team Providers Name Role Phone Angela Holliday STACIE Primary Care Provider Encounter Details Date Type Department Care Team Description 04/04/2013 Telephone Urology at [facility] Parker Sanchez MD [facility] [place] [address] UROLOGY DEPT [phone] [place], [place] [address] (Wo rk) Social History Tobacco [...] Zulma Dolan MD [facility] Dr [place], [place] [address] (Wo rk) 05/28/2022 Laboratory Appointment Lab 05/28/2022 Office Visit Cardiology Zulma Dolan MD [facility] [place] [address] Liz Poole PA [facility] [place] [address] 06/10/2022 Office Visit Dermatology Laura Scherer MD [facility] DR TEJA GR-DERMAT [place], [place] [address] (Wo rk) documented as of this encounter Visit Diagnoses Not on filedocumented in this encounter Care Teams Chief Internal Auditor Relationship Specialty Start Date End Date Angela Holliday APRN PCP - General 01/25/13 04/15/[address] [place] [address] documented as of this encounter
--- OUTSIDE RECORDS SUMMARY | 2022-05-08 02:30 | XMS_ITS | Encounter Summary ---
:1945 Author Organization [facility] [place] [address] Care Team Providers Name Role Phone Angela Holliday APRN Primary Care Provider Encounter Details Date Type Department Care Team Description 03/30/2013 Telephone General Surgery at [facility] Cliff Nevarez, [place] [address] Social History Tobacco Use Types Packs/Day [...] Description 05/28/2022 Appointment Cardiology Zulma Dloan MD [facility] Dr [place], [place] [address] (Wo rk) 05/28/2022 Laboratory Appointment Lab 05/28/2022 Office Visit Cardiology Zulma Dolan MD [facility] [place] [address] Liz Poole PA [facility] [place] [address] 06/10/2022 Office Visit Dermatology Laura Scherer MD [facility] DR TEJA GR-DERMAT [place], [place] [address] (Wo rk) documented as of this encounter Visit Diagnoses Not on filedocumented in this encounter Care Teams Complaint Evaluation Officer Relationship Specialty Start Date End Date Angela Holliday APRN PCP - General 01/25/13 04/15/[address] [place] [address] documented as of this encounter
--- OUTSIDE RECORDS SUMMARY | 2022-05-08 02:30 | XMS_ITS | Encounter Summary ---
:1945 Author Organization [facility] [address] Care Team Providers Name Role Phone Lovely Vicente MD Primary Care Provider Reason for Visit Reason Onset Date Comments Medication Refill 06/19/2016 Encounter Details Date Type Department Care Team Description 06/19/2016 Refill Endocrinology at [facility] Luz Stallings MD [facility] [place] [address] ENDOCRINOLOGY DEPT [phone] [place], [place] [address] (Wo rk) Social History Tobacco [...] [facility] [place] [address] [place] [address] (Wo rk) 05/28/2022 Laboratory Appointment Lab 05/28/2022 Office Visit Cardiology Zulma Dolan MD [facility] [place] [address] Liz Poole PA [facility] [place] [address] 06/10/2022 Office Visit Dermatology Laura Scherer MD [facility] DR TEJA GR-DERMAT [place], [place] [address] (Wo rk) documented as of this encounter Visit Diagnoses Not on filedocumented in this encounter Care Teams Community Liaison Officer Relationship Specialty Start Date End Date Lovely Vicente MD PCP - General 04/16/[address] [place], [place] [address] documented as of this encounter
--- OUTSIDE RECORDS SUMMARY | 2022-05-08 02:30 | XMS_ITS | Encounter Summary ---
:1945 Author Organization [facility] [address] Care Team Providers Name Role Phone Angela Sotelo APRN Primary Care Provider Encounter Details Date Type Department Care Team Description 01/16/2014 Surgery Gastroenterology at [facility] Nohemi Jaimes, COLONOSCOPY, [facility] Jorge mcnamara MD [place]OM[place], [place] [address] [facility] SNARE ([facility] [phone] DR Cintron) GASTROENTEROLOGY DEPT. [place], [place] [address] Social History Tobacco Use [...] you need to be checked. Wednesday-[facility] Clinic [phone] 8a-5p Same Day Endo [phone] 7a-8p Otherwise contact [phone] and ask to speak to the broach operator salesperson sheet music Follow up care is a shelton part [...] Jaimes MD - 01/16/2014 9:49 AM EDT [facility] Operative Note Patient Name: Gregory Fatima : [id number] MR#: [id number] Case Date: 01/16/2014 Surgeon: Surgeon(s) and Role: * Nohemi Jaimes MD - Primary Preoperative diagnosis: 5 yr surv. Full procedure note is documented under the Procedure section of eDH. documented in this encounter Plan of Treatment Upcoming Encounters Date Type Specialty Care Team Description 05/28/2022 Appointment Cardiology Zulma Dolan MD [facility] [address] [place] [address] (Wo rk) 05/28/2022 Laboratory Appointment Lab 05/28/2022 Office Visit Cardiology Zulma Dolan MD [facility] [place] [address] Liz Poole PA [facility] [place] [address] 06/10/2022 Office Visit Dermatology Laura Scherer MD [facility] DR TE[address] [place] [address] (Wo rk) documented as of this encounter [...] MALICKA RT, GREGORY E ? Acc #: ?[id number] ?Pt. MRN: ?[id number] ? Col Date: ?? 4 ? /Sex: [...] City/State/ZIP Code Phon e Number [place] [id number] RAKESH WALKER Specimen to [...] MD PATHOLOGY/CYTOLOGY ORDERABLE S Performing Organization Address City/[facility]/[place] [address] CERNER MILLENNIUM Specimen to [...] S Performing Organization Address [facility] [place] [address] CERNER MILLENNIUM COLONOSCOPY (01/16/2014 7:25 AM EDT) [facility] gist Method Time Signature COLONOSCOPY [facility] PROVATION Endoscopy Patient Name: Gregory Fatima ? Procedure Date: 01/16/2014 7:25 AM ? N: [id number] ? Date of : 1945 ? Age: 68 ? Order #: [id number] ? Procedure: ? Colonoscopy Indications: ? High [...] Laterality 01/16/2014 7:25 AM EDT Angela Sotelo SLIME PLANT OPERATOR HELPER GENERAL SURGICAL ORDERABLES Performing Organization Address City/State/ZIP [...] Routine documented in this encounter Care Teams Application Support Lead Relationship Specialty Start Date End Date Angela Sotelo APRN PCP - General 01/25/13 04/15/15 [address] [place] [address] documented as of this encounter
--- OUTSIDE RECORDS SUMMARY | 2022-05-08 02:30 | XMS_ITS | Encounter Summary ---
:1945 Author Organization [facility] Address [facility] [place] [address] Care Team Providers Name Role Phone Loveyl Vicente MD Primary Care Provider Reason for Visit Reason Comments Skin Check Encounter Details Date Type Department Care Team Description 11/05/2015 Office Visit Dermatology at [facility] benign nevi; Abdelrahman HOOPER MD Lentigines; [address] [facility] History of melanoma; [place] [address] Skin exam for malignant neoplasm [phone] [facility] [place], [place] [address] Social History Tobacco [...] the presence of Dr. Garcia.: GINNY CHRISTIANSEN LENS GENERATING MACHINE TENDER and Judit Cruz, Clinical Scribe I performed the above scribed service and agree with the accuracy of the documentation in this encounter. Rigoberto Garcia MD Section of Dermatology [facility] documented in this encounter Plan of Treatment Upcoming Encounters Date Type Specialty Care Team Description 05/28/2022 Appointment Cardiology Zulma Dolan MD [facility] [place], [place] [address] (Wo rk) 05/28/2022 Laboratory Appointment Lab 05/28/2022 Office Visit Cardiology Zulma Dolan MD [facility] [address] Liz Poole PA [facility] [place] [address] 06/10/2022 Office Visit Dermatology aLura Scherer MD [facility] DR TEJA GR[address], [place] [address] (Wo rk) documented as of this encounter Visit Diagnoses Diagnosis Multiple benign nevi Benign neoplasm of skin, site unspecifie d Lentigines Other dyschromia History of melanoma Personal history of malignant melanoma o f skin Skin exam for malignant neoplasm Screening for malignant neoplasm of the skin documented in this encounter Care Teams Kennel Hand Relationship Specialty Start Date End Date Lovely Vicente MD PCP - General 04/16/15 [facility] [address] [place] [address] (work) documented as of this encounter
--- OUTSIDE RECORDS SUMMARY | 2022-05-08 02:30 | XMS_ITS | Encounter Summary ---
:1945 Author Organization [facility] [place] [address] Care Team Providers Name Role Phone MiyaAngela STACIE Primary Care Provider Encounter Details Date Type Department Care Team Description 04/26/2014 Office Visit Endocrinology at [facility] Albertina Palmer, Papillary thyroid [facility] [place] [address] CENTER [phone] ENDOCRINOLOGY DEPT [place] [address] Social History Tobacco Use Types Packs/Day Years [...] MD [facility] Dr [place], [place] [address] (Wo rk) 05/28/2022 Laboratory Appointment Lab 05/28/2022 Office Visit Cardiology Zulma Dolan MD [facility] [place] [address] Liz Poole PA [facility] [place] [address] 06/10/2022 Office Visit Dermatology Laura Scherer MD [facility] DR TEJA GR[place], [place] [address] (Wo rk) documented as of [...] athologist Signature Thyroglobulin <0.4 <=54.9 CERNER ng/mL [facility] Comment: Interpret with caution. Tg [...] BR et al. J Clin Endo Metab 1999;84:5269-7578). Assay performed using the DPC Immulite T [...] Address City/State/ZIP Code Phon e Number [address] CERNER MILLENNIUM (ABNORMAL) TSH (04/26/2014 9:07 AM EDT) P athologist Signature TSH 4.46 (H) 0.27 - 4.20 CERNER mcIU/mL MILLENNIUM Specimen Anatomical Collection Method Collection Time Receive d Time (Source) Location / / Volume Laterality Blood specimen 04/26/2014 9:07 AM 014 9:12 (specimen) EDT AM EDT Resulting Agency Comment Spec In Lab Rosalind Palmer MD CHEMISTRY ORDERABLES Performing Organization Address City/[facility]/ZIP Code Phon e Number [address] CERNER MILLENNIUM documented in this encounter Visit Diagnoses Diagnosis Papillary thyroid carcinoma Malignant neoplasm of thyroid gland documented in this encounter Care Teams Machine Adjuster Relationship Specialty Start Date End Date Angela Holliday APRN PCP - General 01/25/13 04/15/[address] [place] [address] documented as of this encounter
--- OUTSIDE RECORDS SUMMARY | 2022-05-08 02:30 | XMS_ITS | Encounter Summary ---
:1945 Author Organization [facility] [place] [address] Care Team Providers Name Role Phone Lovely Vicente MD Primary Care Provider Reason for Visit Reason Comments Skin Check Encounter Details Date Type Department Care Team Description 06/05/2016 Office Visit Dermatology at [facility] istory of melanoma; Abdelrahman HOOPER MD Seborrheic keratosis; [address] [facility] [place] (actinic keratosis); [place] [address] Multiple nevi; [phone] [facility] [address]-DERMATOLGY [place], [place] [address] Social History Tobacco [...] Zulma Dolan MD [facility] [place], [place] [address] (Wo rk) 05/28/2022 Laboratory Appointment Lab 05/28/2022 Office Visit Cardiology Zulma Dolan MD [facility] [place] [address] Liz Poole PA [facility] [place] [address] 06/10/2022 Office Visit Dermatology Laura Scherer MD [facility] DR TEJA GR[address]DERMAT [place], [place] [address] (Wo rk) documented as of this encounter Visit Diagnoses Diagnosis History of melanoma Personal history of malignant melanoma o f skin Seborrheic keratosis Other seborrheic keratosis [place] (actinic keratosis) Actinic keratosis Multiple nevi Benign neoplasm of skin, site unspecifie d Scar Scar condition and fibrosis of skin documented in this encounter Care Teams Metal Leaf Layer Relationship Specialty Start Date End Date Lovely Vicente MD PCP - General 04/16/[address] [place] [address] documented as of this encounter
--- OUTSIDE RECORDS SUMMARY | 2022-05-08 02:30 | XMS_ITS | Encounter Summary ---
:1945 Author Organization [facility] [place] [address] Care Team Providers Name Role Phone Miya Angela TSACIE Primary Care Provider Encounter Details Date Type Department Care Team Description 04/24/2013 Telephone Urology at [facility] Zhen Bowman [place] [address] UROLOGY DEPT [phone] [place], [place] [address] (Wo rk) Social History [...] Zulma Dolan MD [facility] [place], [place] [address] (Wo rk) 05/28/2022 Laboratory Appointment Lab 05/28/2022 Office Visit Cardiology Zulma Dolan MD [facility] [place] [address] Liz Poole PA [facility] [place] [address] 06/10/2022 Office Visit Dermatology Laura Scherer MD [facility] DR TEJA GR[address] [place], [place] [address] (Wo rk) documented as of this encounter Visit Diagnoses Not on filedocumented in this encounter Care Teams Embossing Machine Tender Relationship Specialty Start Date End Date Angela Holliday APRN PCP - General 01/25/13 04/15/[address] [place] [address] documented as of this encounter
--- OUTSIDE RECORDS SUMMARY | 2022-05-08 02:30 | XMS_ITS | Encounter Summary ---
:1945 Author Organization [facility] [address] Care Team Providers Name Role Phone Angela Holliday APRN Primary Care Provider Reason for Visit Reason Comments Other Encounter Details Date Type Department Care Team Description 08/01/2013 Telephone Dermatology at [facility] Rigoberto Garcia III, [address] [place] [address] [facility] [phone] TEJA MARIE-DERMAT [place], [place] [address] (Wo rk) Social History [...] them. Component Value Surgical Pathology Final Report [facility] Provider: RIGOBERTO GARCIA III Pt. Name: DON HOANG Acc #: [id number] Pt. Col Date: 07/31/2013 /Sex: 1945,(68 years),Male Rec Date: 07/31/2013 LOC: [facility] SURGICAL PATHOLOGY ---Pathologic Diagnosis--- Skin, right [...] Dolan MD [facility] [place], [place] [address] (Wo lissa) 05/28/2022 Laboratory Appointment Lab 05/28/2022 Office Visit Cardiology Zulma Dolan MD [facility] [place] [address] Liz Poole PA [facility] [place] [address] 06/10/2022 Office Visit Dermatology Laura Scherer MD [facility] [address] TEJA MARIE-[place], [place] [address] (Wo rk) documented as of this encounter Visit Diagnoses Not on filedocumented in this encounter Care Teams Rock Climbing Team Member Relationship Specialty Start Date End Date Angela Holliday APRN PCP - General 01/25/13 04/15/[address] [place] [address] documented as of this encounter
--- OUTSIDE RECORDS SUMMARY | 2022-05-08 02:30 | XMS_ITS | Encounter Summary ---
:1945 Author Organization [facility] [place] [address] Care Team Providers Name Role Phone Lovely Vicente MD Primary Care Provider Reason for Visit Reason Comments Follow-up Encounter Details Date Type Department Care Team Description 06/03/2017 Office Visit Dermatology at [facility] benign nevi; Abdelrahman HOOPER MD History of melanoma; [address] [facility] History of dysplastic nevus; [place] [address] Skin exam for malignant neoplasm [phone] [facility] [place], [place] [address] Social History Tobacco Use Types [...] Zulma Dolan MD [facility] [place], [place] [address] (Wo rk) 05/28/2022 Laboratory Appointment Lab 05/28/2022 Office Visit Cardiology Zulma Dolan MD [facility] [place] [address] Liz Poole PA [facility] [place] [address] 06/10/2022 Office Visit Dermatology Laura Scherer MD [facility] DR [address]-[place]MAT [place], [place] [address] (Wo rk) documented as of [...] skin documented in this encounter Care Teams Bridal Stylist Sales Consultant Relationship Specialty Start Date End Date Lovely Vicente MD PCP - General 04/16/15 [facility] [address] [place] [address] documented as of this encounter
--- OUTSIDE RECORDS SUMMARY | 2022-05-08 02:30 | XMS_ITS | Encounter Summary ---
:1945 Author Organization [facility] [place] [address] Care Team Providers Name Role Phone Angela Holliday APRN Primary Care Provider Encounter Details Date Type Department Care Team Description 04/05/2013 Office Visit Urology at [facility] [place] [address] Social History Tobacco Use Types Packs/Day [...] MD [facility] [place], [place] [address] (Wo rk) 05/28/2022 Laboratory Appointment Lab 05/28/2022 Office Visit Cardiology Zulma Dolan MD [facility] [place] [address] Liz Poole PA [facility] [place] [address] 06/10/2022 Office Visit Dermatology Laura Scherer MD [facility] DR [address]-DERMAT [place], [place] [address] (Wo rk) documented as of this encounter Visit Diagnoses Not on filedocumented in this encounter Care Teams Rivet Tapping Machine Operator Relationship Specialty Start Date End Date Angela Holliday APRN PCP - General 01/25/13 04/15/[address] [place] [address] documented as of this encounter
--- OUTSIDE RECORDS SUMMARY | 2022-05-08 02:30 | XMS_ITS | Encounter Summary ---
:1945 Author Organization [facility] [place] [address] Care Team Providers Name Role Phone Lovely Vicente MD Primary Care Provider Encounter Details Date Type Department Care Team Description 07/10/2016 Telephone Dermatology at [facility] Rigoberto White III, [address] [place] [address] [facility] [phone] [facility] MARIE-DERMAT [place], [place] [address] (Wo rk) Social History Tobacco [...] MD [facility] [place], [place] [address] (Wo rk) 05/28/2022 Laboratory Appointment Lab 05/28/2022 Office Visit Cardiology Zulma Dolan MD [facility] [place] [address] Liz Poole PA [facility] [place] [address] 06/10/2022 Office Visit Dermatology Laura Scherer MD [facility] [address] TEJA MARIE-DERMAT [place], [place] [address] (Wo rk) documented as of this encounter Visit Diagnoses Not on filedocumented in this encounter Care Teams Software Intern Relationship Specialty Start Date End Date Lovely Vicente MD PCP - General 04/16/15 [facility] [address] [place] [address] documented as of this encounter
--- OUTSIDE RECORDS SUMMARY | 2022-05-08 02:30 | XMS_ITS | Encounter Summary ---
:1945 Author Organization [facility] [place] [address] Care Team Providers Name Role Phone Lovely Vicente MD Primary Care Provider Encounter Details Date Type Department Care Team Description 11/28/2016 Telephone Dermatology at [facility] Rigoberto Garcia III, [address] [place] [address] [facility] [phone] [facility] SIMÓN-DERMAT [place], [place] [address] (Wo rk) Social History Tobacco [...] provider. Rigoberto Garcia MD Section of Dermatology [facility] documented in this encounter Plan of Treatment Upcoming Encounters Date Type Specialty Care Team Description 05/28/2022 Appointment Cardiology Zulma Dolan MD [facility] [place], [place] [address] (Wo rk) 05/28/2022 Laboratory Appointment Lab 05/28/2022 Office Visit Cardiology Zulma Dolan MD [facility] [place] [address] Liz Poole PA [facility] [place] [address] 06/10/2022 Office Visit Dermatology Laura Scherer MD [facility] DR TEJA MARIE-DERMAT [place], [place] [address] (Wo rk) documented as of this encounter Visit Diagnoses Not on filedocumented in this encounter Care Teams Entry Level Java Developer Relationship Specialty Start Date End Date Lovely Vicente MD PCP - General 04/16/[address] [place] [address] documented as of this encounter
--- OUTSIDE RECORDS SUMMARY | 2022-05-08 02:30 | XMS_ITS | Encounter Summary ---
:1945 Author Organization [facility] [place] [address] Care Team Providers Name Role Phone Lovely Vicente MD Primary Care Provider Reason for Visit Reason Comments Medication Refill Encounter Details Date Type Department Care Team Description 05/10/2015 Refill Endocrinology at [facility] Rosalind Covarrubias, [facility] Jorge [place] [address] [facility] [phone] ENDOCRINOLOGY [place], [place] [address] (Wo rk) Social History Tobacco [...] MD [facility] er [place], [place] [address] (Wo rk) 05/28/2022 Laboratory Appointment Lab 05/28/2022 Office Visit Cardiology Zulma Dolan MD [facility] [place] [address] Liz Poole PA [facility] [place] [address] 06/10/2022 Office Visit Dermatology Laura Scherer MD [facility] ER DR TEJA GR-DERMAT [place], [place] [address] (Wo rk) documented as of this encounter Visit Diagnoses Not on filedocumented in this encounter Care Teams Inventory Controller Relationship Specialty Start Date End Date Lovely Vicente MD PCP - General 04/16/[address] [place] [address] documented as of this encounter
--- OUTSIDE RECORDS SUMMARY | 2022-05-08 02:31 | XMS_ITS | Encounter Summary ---
:1945 Author Organization [facility] Address [address] [place] [address] Care Team Providers Name Role Phone Lovely Vicente MD Primary Care Provider Encounter Details Date Type Department Care Team Description 01/28/2022 Lab Requisition [facility] Outr Resulting Lab, Pathology & Laboratory Provider [facility] [address] [place] [address] Social History Tobacco Use Types Packs/Day Years Used Date Never Assessed Sex Assigned at Date Recorded Not on file documented as of this encounter Plan of Treatment Not on filedocumented as of this encounter Procedures Procedure Name Priority Date/Time Associated Diagnosis Comme nts COVID-19 TEST [facility] Today 01/27/2022 14:30 LAB PCR EDT COVID-19 TESTING Routine 01/27/2022 14:30 Results for this EDT procedure are i n the results section. documented in this encounter Results COVID-19 TEST [facility] LAB PCR (01/27/2022 14:30 EDT) Specimen Swab Performing Organization Address City/State/ZIP Code Phon e Number [facility] [address] [place] [address] SERVICES COVID-19 TESTING (01/27/2022 14:30 EDT) COVID-19 [...] was performed using the meliton SARS-CoV-2 assay ([employer] on the Meliton 6800 System Performing Lab Meliton [address] [facility] Lab [facility] SERVICES Specimen Swab Performing Organization Address City/State/ZIP Code Phon e Number [facility] [address] [place] [address] SERVICES documented in this encounter Visit Diagnoses Not on filedocumented in this encounter Care Teams Publishing Systems Analyst Relationship Specialty Start Date End Date Lovely Vicente MD PCP - General 07/13/14 documented as of this encounter
--- OUTSIDE RECORDS SUMMARY | 2022-05-08 02:31 | XMS_ITS | Encounter Summary ---
:1945 Author Organization [facility] [place] [address] Care Team Providers Name Role Phone Brody Berrios MD Primary Care Provider Reason for Visit Reason Comments Annual Exam Encounter Details Date Type Department Care Team Description 09/22/2011 Follow-Up Dermatology Arik Tipton Psoriasis (Primary Dx); [facility] MD Jorge Personal history of other malignant neop lasm of skin Drive [place] [id number] DERMATOLOGY DEPT . 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 His only complaints tail bone and [...] changes: Arik Tipton MD Section of Dermatology [facility] documented in this encounter Plan of Treatment Upcoming Encounters Date Type Specialty Care Team Description 05/28/2022 Appointment Cardiology Zulma Dolan MD [facility] [address] [place], [place] [address] (Wo rk) 05/28/2022 Laboratory Appointment Lab 05/28/2022 Office Visit Cardiology Zulma oDlan MD [facility] [place] [address] Liz Poole PA [facility] [place] [address] 06/10/2022 Office Visit Dermatology Laura Scherer MD [facility] [address] [place], [place] [address] (Wo rk) documented as of this encounter Visit Diagnoses Diagnosis Psoriasis - Primary Other psoriasis Personal history of other malignant neop lasm of skin documented in this encounter Care Teams Data Reviewer Relationship Specialty Start Date End Date Brody Berrios MD PCP - General 09/22/11 10/03/[address] [place] [address] documented as of this encounter
--- OUTSIDE RECORDS SUMMARY | 2022-05-08 02:31 | XMS_ITS | Encounter Summary ---
:1945 Author Organization [facility] [place] [address] Care Team Providers Name Role Phone Angela Holliday APRN Primary Care Provider Encounter Details Date Type Department Care Team Description 03/28/2013 Surgery Main Operating Room Mesha Mcknight, THYROIDECTOMY, [facility].04[facility] [address] Siddiqui [place] [address] [place] [address] [phone] (Wo rk) Social History Tobacco Use Types [...] please call the General Surgery nurse at [phone], since this may mean that you need morecalcium. Follow-up Appointment: Will be scheduled with Dr. Mcknight in 6 weeks Date and time as well as any required labs will be mailed to you Please call [phone] to confirm date and time of your [...] by calcium supplementation. Phone number for questions: [phone] before 5 PM weekdays [phone] after 5 PM and on weekends/holidays Please follow up with Urology as per their recommendations for Bob removal AttachmentsThe following attachments cannot be sent through Care Everywhere. THYROIDECTOMY: WHAT TO EXPECT AT HOME (ITALIAN)URINARY CATHETER CARE: AFTER YOUR VISIT (ITALIAN)documented in this encounter Medications at Time of [...] Willams MD - 03/28/2013 3:43 PM EDT [facility] Operative Note Patient Name: Gregory Fatima : [id number] MR#: [id number] Case Date: 03/28/2013 Surgeon: Surgeon(s) and Role: [...] Operative Note Patient Name: Gregory Fatima : [id number] MR#: [id number] Case Date: 03/28/2013 Surgeon: Surgeon(s) and Role: [...] [facility] er [address] [place] [address] (Wo rk) 05/28/2022 Laboratory Appointment Lab 05/28/2022 Office Visit Cardiology Zulma Dolan MD [facility] [place] [address] [facility] [place] [address] 06/10/2022 Office Visit Dermatology Laura Scherer MD [facility] ER DR TE[address] [place] [address] (Wo rk) documented as of this encounter [...] Address City/State/Z[place] [address] CERNER MILLENNIUM (ABNORMAL) POCT [...] City/[facility]/[place] [address] CERNER MILLENNIUM (ABNORMAL) POCT [...] City/[facility]/ZIP Code Phon e Number [address] CERNER MILLENNIUM (ABNORMAL) POCT [...] City/[facility]/ZIP Code Phon e Number [address] CERNER MILLENNIUM (ABNORMAL) POCT [...] City/[facility]/ZIP Code Phon e Number [address] CERNER MILLENNIUM (ABNORMAL) POCT [...] City/[facility]/ZIP Code Phon e Number [address] CERNER MILLENNIUM (ABNORMAL) POCT [...] City/[facility]/ZIP Code Phon e Number [address] CERNER MILLENNIUM (ABNORMAL) POCT [...] 013 2:49 (specimen) EDT PM EDT Mesha Mcknigth MD POINT OF CARE TEST ORDERABLE S Performing Organization Address City/[facility]/ZIP Code Phon e Number [address] [facility] Specimen to Pathology (surgical or derm) (03/28/2013 12:14 PM EDT) Specimen Anatomical Collection Method Collection Time Receive d Time (Source) Location / / Volume Laterality AP Specimen 03/28/2013 12:14 03/28/2013 PM EDT 12:14 PM EDT Narrative CERNER MILLENNIUM - 03/28/2013 12:14 PM EDT Specimen requisition ordered. ??Separate Pathology report to follow Mesha Mcknight MD PATHOLOGY/CYTOLOGY ORDERABLE S Performing Organization Address City/[facility]/ZIP Code Phon e Number [address] [facility] Pathology Addendum Report (03/28/2013 12:03 PM EDT) Component Value Ref Test Analysis Performed At [facility] gist Range Method Time Signature Addendum CERNER Report ? [facility] ? Provider: ?? MESHA MCKNIGHT Pt. Name: ?? GREGORY FATIMA ? Acc #: ?[id number] ?Pt. MRN: ?[id number] ? Col Date: ?? 03/28/2013 ?/Sex: ?1945,(68 [...] Organization Address City/State/[place] [address] [facility] Surgical Pathology Report (03/28/2013 12:03 PM EDT) Component Value Ref Test Analysis Performed At [facility] gist Range Method Time Signature Surgical [facility] Pathology ? [facility] Report ? Provider: ?? MESHA MCKNIGHT Pt. Name: ?? GREGORY FATIMA ? Acc #: ?[id number] ?Pt. MRN: ?[id number] ? Col Date: ?? 03/28/2013 ?/Sex: ?1945,(68 [...] areas of hemorrhage and ? calcifications. ? [facility] ? Provider: ?? MESHA MCKNIGHT Pt. Name: ?? GREGORY FATIMA ? Acc #: ?[id number] ?Pt. MRN: ?[id number] ? Col Date: ?? 03/28/2013 ?/Sex: ?1945,(68 years),Male ? Rec Date: ?? 03/28/2013 ?LOC: ?[facility] ? SURGICAL PATHOLOGY ? SECTIONS/PROCESSING: Press Operator sections are subm itted. (R6) ? [...] Organization Address City/State/[place] [address] CERNER MILLENNIUM Frozen Section Report (03/28/2013 12:03 PM EDT) Component Value Ref Test Analysis Performed At [facility] gist Range Method Time Signature Frozen CERNER Section ? [facility] Report ? Provider: ?? MESHA MCKNIGHT Pt. Name: ?? GREGORY FATIMA ? Acc #: ?[id number] ?Pt. MRN: ?[id number] ? Col Date: ?? 03/28/2013 ?/Sex: ?1945,(68 [...] MD PATHOLOGY/CYTOLOGY ORDERABLE S Performing Organization Address City/[facility]/[place] [address] CERNER MILLENNIUM POCT Glucose [...] City/[facility]/ZIP Code Phon e Number [address] CERNER MILLENNIUM Specimen to [...] MD PATHOLOGY/CYTOLOGY ORDERABLE S Performing Organization Address City/[facility]/[place] [address] CERNER MILLENNIUM Antibody screen [...] City/[facility]/[place] [address] [facility] [facility] [address] GRISELDAENNIUM ABO/Rh Typing (03/28/2013 9:37 AM EDT) athologist Signature ABORh Type O Pos [facility] Specimen Anatomical Collection Method Collection Time Receive d Time (Source) Location / / Volume Laterality Blood specimen 03/28/2013 9:37 AM 013 9:37 (specimen) EDT AM EDT Resulting Agency Comment Spec In Lab Mesha Mcknight MD BLOOD BANK ORDERABLES Performing Organization Address City/[facility]/ZIP Code Phon e Number [address] [facility] Differential, Automated (03/28/2013 9:34 AM [...] City/State/ZIP Code Phon e Number [place] [id number] HOSPITAL LAB[address]ORY [address] CERNER MILLENNIUM (ABNORMAL) Basic [...] intervals supplied above were not validated at [facility]. Results from pediatri c patients should be [...] Organization Address City/State/[place] [address] CERNER MILLENNIUM (ABNORMAL) CBC [...] MPV 9.3 9.0 - 12.[address] Specimen Anatomical Collection Method Collection Time Receive d Time (Source) Location / / Volume Laterality Blood specimen 03/28/2013 9:34 AM 013 9:38 (specimen) EDT AM EDT Resulting Agency Comment Spec In Lab Mesha Mcknight MD HEMATOLOGY ORDERABLES Performing Organization Address City/[facility]/ZIP Code Phon e Number [address] [facility] POCT Glucose (03/28/2013 9:17 AM EDT) athologist Signature POC Glucose 108 60 - 199 CERNER mg/dL [facility] Comment: Supplemental ranges: <110 mg/dL before meals <200 mg/dL all other times of the day Specimen Anatomical Collection Method Collection Time Receive d Time (Source) Location / / Volume Laterality Blood specimen 03/28/2013 9:17 AM 013 9:17 (specimen) EDT AM EDT Mesha Mcknight MD POINT OF CARE TEST ORDERABLE S Performing Organization Address City/[facility]/ZIP Code Phon e Number [address] [facility] Specimen to Pathology (surgical or derm) (03/28/2013 [...] MD PATHOLOGY/CYTOLOGY ORDERABLE S Performing Organization Address City/[facility]/ZIP Code Phon e Number [address] RAKESH WALKER documented in [...] [facility], [facility]) 2.5 mg, Oral, DAILY, First dose [...] override documented in this encounter Care Teams Storage Battery Inspector And Tester Relationship Specialty Start Date End Date Angela Holliday APRN PCP - General 01/25/13 04/15/15 [address] [place] [address] documented as of this encounter
--- OUTSIDE RECORDS SUMMARY | 2022-05-08 02:31 | XMS_ITS | Encounter Summary ---
:1945 Author Organization [facility] Address [address] [place] [address] Care Team Providers Name Role Phone Lovely Vicente MD Primary Care Provider Encounter Details Date Type Department Care Team Description 01/17/2021 Lab Requisition [facility] Outr Resulting Lab, Pathology & Laboratory Provider [facility] [address] [place] [address] Social History Tobacco Use Types Packs/Day Years [...] nature PSA 2.9 0.0 - 6.5 ng/mL [facility] Specimen Blood - Venous blood (substance) Narrative [facility] - 01/17/2021 17:46 EDT NOTE: Serum PSA concentration should not be in terpreted as absolute evidence for the presence or absence of malignant disease. Assayed on Siemens ADVIA Centaur XPT usi ng chemiluminescent technology.??Values obtained by using different assay methods cannot be used interchangeably. Performing Organization Address City/State/ZIP Code Phon e Number [facility] [address] [place] [address] SERVICES documented in this encounter Visit Diagnoses Not on filedocumented in this encounter Care Teams Caustic Cresylate Shift Superintendent Relationship Specialty Start Date End Date Lovely Vicente MD PCP - General 07/13/14 documented as of this encounter
--- OUTSIDE RECORDS SUMMARY | 2022-05-08 02:31 | XMS_ITS | Encounter Summary ---
:1945 Author Organization [facility] Address [address] [place] [address] Care Team Providers Name Role Phone Lovely Vicente MD Primary Care Provider Encounter Details Date Type Department Care Team Description 01/01/2020 Lab Requisition [facility] Outr Resulting Lab, Pathology & Laboratory Provider [facility] [address] [place] [address] Social History Tobacco Use Types Packs/Day Years [...] nature PSA 2.1 0.0 - 6.5 ng/mL [facility]ORY SERVICES Specimen Blood - Venous blood (substance) Narrative [facility] - 01/02/2020 10:40 EDT NOTE: Serum PSA concentration should not be in terpreted as absolute evidence for the presence or absence of malignant disease. Assayed on Siemens [employer]IA Centaur XPT usi ng chemiluminescent technology.??Values obtained by using different assay methods cannot be used interchangeably. Performing Organization Address City/State/ZIP Code Phon e Number [facility] [address] [place] [address] SERVICES documented in this encounter Visit Diagnoses Not on filedocumented in this encounter Care Teams Lyft Driver Relationship Specialty Start Date End Date Lovely Vicente MD PCP - General 07/13/14 documented as of this encounter
--- OUTSIDE RECORDS SUMMARY | 2022-05-08 02:31 | XMS_ITS | Encounter Summary ---
:1945 Author Organization [facility] [place] [address] Care Team Providers Name Role Phone Unknown Primary Care Provider Unavailable Reason for Visit Reason Comments Other Encounter Details Date Type Department Care Team Description 10/05/2012 Telephone [facility] Rigoberto Garcia III, [address] [place] [address] [facility] [phone] TEJA MARIE-DERMAT [place] [address] (Wo rk) Social History Tobacco Use Types [...] Zulma Dolan MD [facility] [place], [place] [address] (Wo rk) 05/28/2022 Laboratory Appointment Lab 05/28/2022 Office Visit Cardiology Zulma Dolan MD [facility] [place] [address] Liz Poole PA [facility] [place] [address] 06/10/2022 Office Visit Dermatology Laura Scherer MD [facility] DR TEJA MARIE-DERMAT [place], [place] [address] (Wo rk) documented as of this encounter Visit Diagnoses Not on filedocumented in this encounter Care Teams Veneer Stapler Relationship Specialty Start Date End Date Unknown PCP - General 10/04/12 01/24/13 None documented as of this encounter
--- OUTSIDE RECORDS SUMMARY | 2022-05-08 02:31 | XMS_ITS | Encounter Summary ---
:1945 Author Organization [facility] Address [facility] [place] [address] Care Team Providers Name Role Phone Unknown Primary Care Provider Unavailable Reason for Visit Reason Comments Skin Check Encounter Details Date Type Department Care Team Description 10/04/2012 Follow-Up Dermatology at Rigoberto Forman soriasis (Primary Dx); Abdelrahman HOOPER MD Neoplasm of unspecified nature of bone, soft tissue, and skin; [address] [facility] Skin lesion of chest wall; [place] [address] Seborrheic psoriasis- scalp and ingtergl uteal area [phone] [facility] [place], [place] [address] (Wo rk) Social History Tobacco [...] Zulma Dolan MD [facility] [address] [place], [place] [address] (Wo rk) 05/28/2022 Laboratory Appointment Lab 05/28/2022 Office Visit Cardiology Zulma Dolan MD [facility] [place] [address] Liz Poole PA [facility] [place] [address] 06/10/2022 Office Visit Dermatology Laura Scherer MD [facility] DR TEJA GR-DERMAT OGY [place], [place] [address] (Wo rk) documented as of [...] Component Value Ref Test Analysis Performed At [facility] gist Range Method Time Signature Surgical CERNER Pathology ? [facility] Report ? Provider: ?? RIGOBERTO ALBARRAN III Pt. Name: ?? DON HOANG ?A ? Acc #: ?[id number] ? Pt. ? Col Date: ?? 3 [...] ORDERABLE S Performing Organization Address City/[facility]/ZIP Code Phon e Number [address] [facility] Specimen to Pathology (NON-OR) (10/04/2012 9:55 AM EDT) Specimen Anatomical Collection Method Collection Time Receive d Time (Source) Location / / Volume Laterality AP Specimen 10/04/2012 9:55 AM 201 3 9:56 EDT AM EDT Narrative [facility] M[facility] - 10/04/2012 9:56 AM E DT Specimen requisition ordered. ??Separate Pathology report to follow Rigoberto Albarran III, MD PATHOLOGY/CYTOLOGY ORDERABLE S Performing Organization Address City/[facility]/ZIP Code Phon e Number [address] [facility] documented in this encounter Visit Diagnoses Diagnosis Psoriasis - Primary Other psoriasis Neoplasm of unspecified nature of bone, soft tissue, and skin Skin lesion of chest wall Unspecified disorder of skin and subcuta neous tissue Seborrheic psoriasis- scalp and ingtergl uteal area Other psoriasis documented in this encounter Care Teams Manager Route Relationship Specialty Start Date End Date Unknown PCP - General 10/04/12 01/24/13 None documented as of this encounter
--- OUTSIDE RECORDS SUMMARY | 2022-05-08 02:31 | XMS_ITS | Encounter Summary ---
:1945 Author Organization [facility] [place] [address] Care Team Providers Name Role Phone NeilSom conner STACIE Primary Care Provider Reason for Visit Reason Comments Establish Care OBST GOITER Encounter Details Date Type Department Care Team Description 01/25/2013 Office Visit General Surgery at Manny Mcknight er colloid, toxic, [facility] MD Eliseo nodular (Primary Dx) [facility] [place] GENERAL SURGERY [id number] [place], [place] [id number] [phone] Social History Tobacco Use Types Packs/Day Years [...] the thyroid gland were obtained using a SonoSiGeoTrac MicroMaxx and an HFL38/13-6 broadband linear array [...] on physical exam. ROS: No H/O asthma, CA, stroke, pulmonary embolus or phlebitis. Comprehensive review [...] Zulma Dolan MD [facility] [address] [place] [address] (Wo rk) 05/28/2022 Laboratory Appointment Lab 05/28/2022 Office Visit Cardiology Zulma Dolan [place] [facility] [place] [address] Liz Poole PA [facility] [place] [address] 06/10/2022 Office Visit Dermatology Laura Scherer MD [facility] DR TEJA GR-DERMAT [place], [place] [address] (Wo rk) documented as of [...] ms MUSE SYSTEM (Bezet) Calculated P [place] 52 degrees MUSE SYSTEM Calculated R [place] 0 degrees MUSE SYSTEM Calculated T [place] 40 degrees MUSE SYSTEM INTERPRETATION Normal sinus [...] storm documented in this encounter Care Teams Physical Integration Practitioner Relationship Specialty Start Date End Date Som Holliday APRN PCP - General 01/25/13 04/15/[address] [place] [address] documented as of this encounter
--- OUTSIDE RECORDS SUMMARY | 2022-05-08 02:31 | XMS_ITS | Encounter Summary ---
:1945 [place] [address] Care Team Providers Name Role Phone MiyaLokeshAngela STACIE Primary Care Provider Encounter Details Date Type Department Care Team Description 03/28/2013 Anesthesia Event Main Operating Room Meredith Calvert MD [facility] [place] [address] [facility] Nolvia Riojas PA [facility] [place] [address] [place] [address] Anesthesia Record Procedure Summary Procedure Name [...] Dolan MD [facility] [place], [place] [address] (Wo rk) 05/28/2022 Laboratory Appointment Lab 05/28/2022 Office Visit Cardiology Zulma Dolan MD [facility] [place] [address] Liz Poole PA [facility] [place] [address] 06/10/2022 Office Visit Dermatology Laura Scherer MD [facility] DR TEJA GR-DERMAT [place], [place] [address] (Wo rk) documented as of [...] Routine documented in this encounter Care Teams Hammer Fitter Relationship Specialty Start Date End Date Angela Holliday APRN PCP - General 01/25/13 04/15/[address] [place] [address] documented as of this encounter
--- OUTSIDE RECORDS SUMMARY | 2022-05-08 02:31 | XMS_ITS | Encounter Summary ---
:1945 Author Organization [facility] [place] [address] Care Team Providers Name Role Phone Angela Holliday APRN Primary Care Provider Reason for Referral Surgical (Routine) - Closed Specialty Diagnoses / Procedures Referred By Contact Refer red To Contact General Surgery Diagnoses Elijah Villagomez MD Colacchio, Thomas A, MD [address] [place] [address] [place] [address] [place] [address] Phone: Fax: Referral ID Status Reason Start Date Expiration Date Visits V isits Requested Authorized [id number] Closed Specialty 01/25/2013 07/24/2013 1 1 Service Requested Reason for Visit Reason Comments Thyroid Problem Encounter Details Date Type Department Care Team Description 01/25/2013 Office Visit Endocrinology at 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 All [...] the thyroid gland were obtained using a SonContour Innovationsaxx and an HFL38/13-6 broadband linear array transducer. [...] Zulma Dolan MD [facility] [place], [place] [address] (Wo rk) 05/28/2022 Laboratory Appointment Lab 05/28/2022 Office Visit Cardiology Zulma Dolan MD [facility] [place] [place] [address] Liz Poole PA [facility] [place] [address] 06/10/2022 Office Visit Dermatology Laura Scherer MD [facility] DR TEJA GR-DERMAT [place]LOG[place], [place] [address] (Wo rk) Scheduled Referrals Name [...] Organization Address City/State/[place] [address] CERNER MILLENNIUM documented in this encounter Visit Diagnoses Diagnosis Goiter - Primary Goiter, unspecified documented in this encounter Care Teams Calender Let Off Operator Relationship Specialty Start Date End Date Angela Holliday APRN PCP - General 01/25/13 04/15/[address] [place] [address] documented as of this encounter
--- OUTSIDE RECORDS SUMMARY | 2022-05-08 02:31 | XMS_ITS | Encounter Summary ---
:1945 Author Organization [facility] Address [address] [place] [address] Care Team Providers Name Role Phone Lovely Vicente MD Primary Care Provider Encounter Details Date Type Department Care Team Description 08/11/2019 Lab Requisition [facility] Unknown, Provider, Pathology & Laboratory [facility] [address] [facility] [place] [address] Social History Tobacco Use Types Packs/Day Years [...] Sig nature Salmonella PCR Negative Negative [facility] Shigella/Enteroinvasive Negative Negative [facility] R E. coli LABORATORY SERVICES HN LAB CAMPYLOBACTER PCR Negative Negative [facility] ER LABORATORY SERVICES Shiga Toxin PCR Negative Negative [facility] Specimen Feces - Specimen from rectum (specimen) Performing Organization Address City/State/ZIP Code Phon e Number [facility] [address] [place] [address] SERVICES documented in this encounter Visit Diagnoses Not on filedocumented in this encounter Care Teams Transformation Lead Relationship Specialty Start Date End Date Lovely Vicente MD PCP - General 07/13/14 documented as of this encounter
--- OUTSIDE RECORDS SUMMARY | 2022-05-08 02:31 | XMS_ITS | Encounter Summary ---
:1945 Author Organization [facility] Address [address] [place] [address] Care Team Providers Name Role Phone Lovely Vicente MD Primary Care Provider Encounter Details Date Type Department Care Team Description 04/04/2021 Lab Requisition [place] Outr Resulting Lab, Pathology & Laboratory Provider [facility] [address] [place] [address] Social History Tobacco Use Types Packs/Day Years [...] Pathologist Sig nature Salmonella PCR Negative Negative [facility] LABORATORY SERVICES Shigella/Enteroinvasive Negative Negative [facility] R E. coli LABORATORY SERVICES HN LAB CAMPYLOBACTER PCR Negative Negative [facility] ER LABORATORY SERVICES Shiga Toxin PCR Negative Negative [facility] LAB[facility]ORY SERVICES Specimen Feces - Specimen from rectum (specimen) Performing Organization Address City/State/ZIP Code Phon e Number [facility] LABOR[facility]ORY [address] [place] [address] SERVICES documented in this encounter Visit Diagnoses Not on filedocumented in this encounter Care Teams Acoustical Tile Carpenters Supervisor Relationship Specialty Start Date End Date Lovely Vicente MD PCP - General 07/13/14 documented as of this encounter
--- OUTSIDE RECORDS SUMMARY | 2022-05-08 02:31 | XMS_ITS | Encounter Summary ---
:1945 Author Organization [facility] Address [address] [place] [address] Care Team Providers Name Role Phone Lovely Vicente MD Primary Care Provider Encounter Details Date Type Department Care Team Description 02/20/2022 Lab Requisition [facility] Outr Resulting Lab, Pathology & Laboratory Provider [facility] [address] [place] [address] Social History Tobacco Use Types Packs/Day Years [...] [facility] [address] [place] [address] SERVICES documented in this encounter Visit Diagnoses Not on filedocumented in this encounter Care Teams Cooling Room Attendant Relationship Specialty Start Date End Date Lovely Vicente MD PCP - General 07/13/14 documented as of this encounter
--- OUTSIDE RECORDS SUMMARY | 2022-05-08 02:31 | XMS_ITS | Encounter Summary ---
:1945 Author Organization [facility] [place] [address] Care Team Providers Name Role Phone Adi Costello MD Primary Care Provider Reason for Visit Reason Comments Annual Exam ckeck his groin and melanoma follow-up Encounter Details Date Type Department Care Team Description 11/21/2010 Follow-Up Dermatology Arik Tipton Melanoma (Primary Dx) [facility] MD [place] [id number] DERMATOLOGY DEPT . [place] [address] (Wo rk) Social History Tobacco Use Types [...] Arik Tipton MD Section of Dermatology [facility] documented in this encounter Plan of Treatment Upcoming Encounters Date Type Specialty Care Team Description 05/28/2022 Appointment Cardiology Zulma Dolan MD [facility] [address] [place], [place] [address] (Wo rk) 05/28/2022 Laboratory Appointment Lab 05/28/2022 Office Visit Cardiology Zulma Dolan MD [facility] [place] [address] Liz Poole PA [facility] [place] [address] 06/10/2022 Office Visit Dermatology Laura Scherer MD [facility] DR TEJA GR-DERMAT OLOG[place], [place] [address] (Wo rk) documented as of this encounter Visit Diagnoses Diagnosis Melanoma - Primary Melanoma of skin, site unspecified documented in this encounter Care Teams Oracle Technical Architect Relationship Specialty Start Date End Date Adi Costello MD PCP - General 06/17/10 09/21/11 [address] [place] [address] documented as of this encounter
--- OUTSIDE RECORDS SUMMARY | 2022-05-08 02:31 | XMS_ITS | Clinical Summary ---
:1945 Author Organization [facility] Address [address] [place] [address] Care Team Providers Name Role Phone Lovely [...] Pathologist Sig nature PSA 2.7 <=6.5 ng/mL [facility] Specimen Blood - Venous blood (substance) Narrative [facility] - 02/20/2022 18:17 EDT NOTE: Serum PSA concentration should not be in terpreted as absolute evidence for the presence or absence of malignant disease. Assayed on Siemens ADVIA Centaur XPT usi ng chemiluminescent technology.??Values obtained by using different assay methods cannot be used interchangeably. Performing Organization Address City/State/ZIP Code Phon e Number [facility] [address] [place] [address] SERVICES from Last 3 Months Care Teams Crimp Setter Relationship Specialty Start Date End Date Lovely Vicente MD PCP - General 07/13/14
--- OUTSIDE RECORDS SUMMARY | 2022-05-08 02:31 | XMS_ITS | Encounter Summary ---
:1945 Author Organization [facility] [place] [address] Care Team Providers Name Role Phone Angela Holliday APRN Primary Care Provider Encounter Details Date Type Department Care Team Description 03/15/2013 Telephone General Surgery at [facility] [address], [place] [address] Social History Tobacco Use Types Packs/Day [...] Appointment Cardiology Zulma Dolan MD [facility] [place], [place] [address] (Wo rk) 05/28/2022 Laboratory Appointment Lab 05/28/2022 Office Visit Cardiology Zulma Dolan MD [facility] [place] [address] Liz Poole PA [facility] [place] [address] 06/10/2022 Office Visit Dermatology Laura Scherer MD [facility] DR TEJA GR-DERMAT [place], [place] [address] (Wo rk) documented as of this encounter Visit Diagnoses Not on filedocumented in this encounter Care Teams Supervisor Rework Relationship Specialty Start Date End Date Angela Holliday APRN PCP - General 01/25/13 04/15/[address] [place] [address] documented as of this encounter
--- OUTSIDE RECORDS SUMMARY | 2022-05-08 02:31 | XMS_ITS | Encounter Summary ---
:1945 Author Organization [facility] [place] [address] Care Team Providers Name Role Phone Angela Holliday APRN Primary Care Provider Encounter Details Date Type Department Care Team Description 01/25/2013 Clinical [place] [address] Social History Tobacco Use Types Packs/Day [...] Cardiology Zulma Dolan MD [facility] [address] [place] [address] (Wo rk) 05/28/2022 Laboratory Appointment Lab 05/28/2022 Office Visit Cardiology Zulma Dolan MD [facility] [place] [address] Liz Poole PA [facility] [place] [address] 06/10/2022 Office Visit Dermatology Laura Scherer MD [facility] DR TEJA GR-DER[place], [place] [address] (Wo rk) documented as of this encounter Visit Diagnoses Not on filedocumented in this encounter Care Teams Visiting Nurse Relationship Specialty Start Date End Date Angela Holliday APRN PCP - General 01/25/13 04/15/[address] [place] [address] documented as of this encounter
--- OUTSIDE RECORDS SUMMARY | 2022-05-08 02:32 | XMS_ITS ---
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 Problem Critical ischemia I99.8 Active of lower extremity Problem Atherosclerosis I70.90 Active 3871 6007 Problem Type 2 diabetes E11.628 Active mellitus with other skin complications Problem 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 40 ; Acquired deformi ty of right foot M21.961 ; L luis term current use of i nsulin Z79.4 ; History of art erial bypass of lower extremi ty Z95.828 ; Atherosclerosis I70.90 and History of Lisfr anc amputation of fo ot Z89.439 [address] Feb, Type 2 diabet es mellitus [address] [place] with diabe tic neuropathy, [address] unspecified E11. 40 ; Acquired deformi ty of right foot M21.961 ; L luis term current use of i nsulin Z79.4 ; History of art erial bypass of lower extremi ty Z95.828 ; Atherosclerosis I70.90 and History of Lisfr anc amputation of fo ot Z89.439 [employer] [facility] November, [place] [address] [facility] [facility] November, Type 2 [place] [address] with diabeti c neuropathy, unspecified E11. 40 ; Acquired deformi ty of right foot M21.961 ; L luis term current use of i nsulin Z79.4 ; History of art erial bypass of lower extremi ty Z95.828 ; Atherosclerosis I70.90 and History of Lisfr anc amputation of fo ot Z89.439 [employer] [facility] 10 Aug, 2019 Type 2 [place] [address] with other skin complications E1 1.628 ; Tinea pedis of l eft foot B35.3 ; Type 2 d iabetes mellitus with di abetic neuropathy, unsp ecified E11.40 ; Acquire d deformity of right foot M2 1.961 ; snf current use of insulin Z79.4 ; History of arterial bypass of lower extremity Z95.828 and Athe rosclerosis I70.90 [facility] Jun, [place] [address] [address] Jun, [place] [address] [address] Jun, Type 2 diabet es mellitus [place], [place] with other skin [address] complications E1 1.628 ; Acquired deformi ty of right foot M21.961 ; T ype 2 diabetes mellitu s with diabetic neuropa thy, unspecified E11. 40 ; termite helper current use of insulin Z79.4 and Histor y of arterial bypass of lower extremity Z95.82 8 [facility] Feb, Type 2 [place] [address] with other s kin complications E1 1.628 ; Acquired deformi ty of right foot M21.961 ; T ype 2 diabetes mellitu s with diabetic neuropa thy, unspecified E11. 40 ; snf current use of insulin Z79.4 and Histor y of arterial bypass of lower extremity Z95.82 8 [facility] November, Tinea pedis o f left foot [place], [place] B35.3 ; Ty pe 2 diabetes [address] mellitus with ot her skin complications E1 1.628 ; Acquired deformi ty of right foot M21.961 ; T ype 2 diabetes mellitu s with diabetic neuropa thy, unspecified E11. 40 ; termite helper current use of insulin Z79.4 and Histor y of arterial bypass of lower extremity Z95.82 8 [employer] [facility] November, [place] [address] [address] Aug, Type 2 diabet es mellitus [place], [place] with diabe tic neuropathy, [address] unspecified E11. 40 ; Acquired deformi ty of right foot M21.961 ; P eripheral arterial disease I73.9 ; History of arter ial bypass of lower extremi ty Z95.828 ; snf curren t use of insulin Z79.4 an d History of Lisfranc amputat ion of foot Z89.439 UNKNOWN Jul, [facility] 11 Jun, 2018 Type 2 [place] [address] with diabeti c neuropathy, unspecified E11. 40 [address] Apr, Edema of both legs R60.0 ; [place] Acquired d eformity of right [address] foot M21.961 ; P eripheral arterial disease I73.9 ; History of arter ial bypass of lower extremi ty Z95.828 ; termite helper curren t use of insulin Z79.4 an d Type 2 diabetes mellitu s with diabetic neuropa thy, unspecified E11. 40 [facility] Mar, [place] [address] [address] Mar, Edema of both legs R60.0 ; [place] Acquired d eformity of right [address] foot M21.961 ; P eripheral arterial disease I73.9 ; History of arter ial bypass of lower extremi ty Z95.828 ; termite helper curren t use of insulin Z79.4 an d Type 2 diabetes mellitu s with diabetic neuropa thy, unspecified E11. 40 [facility] Feb, Edema of both legs R60.0 ; [place] [address] Ulcer of lef t calf, limited to breakdown of skin L97.221 ; Acquired defor mity of right foot M21.9 61 ; Peripheral arter ial disease I73.9 ; History of arterial bypass of lower extremity Z95.828 ; Long t erm current use of insulin Z 79.4 and Type 2 diabetes mellitus with diabetic ne uropathy, unspecified E11. 40 [employer] [facility] 1 Feb, [facility] [place] [address] [facility] Feb, Edema of both legs R60.0 ; [place] [address] Ulcer of rig ht calf, limited to [...] uropathy, unspecified E11. 40 [facility] Feb, [place] [address] [facility] [address] [facility] [address] Feb, [place] [address] [facility] [address] [facility] [address] Jan, [place] [address] [facility] [address] [facility] [address] Jan, [place] [address] [facility] [address] [facility] [address] Jan, [place] [address] [facility] [address] [facility] [address] Jan, [place] [address] [facility] [address] [facility] [address] Jan, [place] [address] [facility] [address] [facility] [address] Dec, [place] [address] [facility] [address] [facility] [address] Dec, [place] [address] [facility] [address] [facility] [address] Dec, [place] [address] [facility] [address] [facility] [address] Dec, [place] [address] [facility] Dec, [place] [address] [facility] [address] [facility] [address] Dec, [place] [address] [facility] November, [place] [address] [facility] November, [place] [address] [facility] November, [place] [address] [facility] November, [place] [address] [facility] [place] [address] [facility] November, [place] [address] UNKNOWN November, [facility] [address] [place] [address] November, OFFICE [place] [address] [facility] November, [place], [place] [address] [facility] Oct, [place], [place] [address] [facility] Oct[place] [address] [facility] Oct, [place] [address] [facility] [address] [place] 18 Oct, 2017 [place] [address] [facility] 16 Oct, 2017 [place] [address] [facility] [address] [place] 16 Oct, 2017 [facility] [address] [facility] Oct, [place] [address] [facility] Oct, [place] [address] [facility] Oct, [place] [address] [facility] [address] [place] Sep, [facility] [address] [facility] Sep, [place] [address] [facility] [address] [place] Sep, [place] [address] [facility] [address] [place] Sep, [place] [address] [facility] [address] [place] Sep, [place] [address] [facility] [address] [place] Sep, Critical ischemi a of lower [place] [address] extremity I 99.8 ; Local infection of the skin and subcutaneous tis lindsey, unspecified L08. 9 and Type 2 diabetes mellitu s with other skin complicatio ns E11.628 [facility] Sep, [place] [address] [facility] [address] [facility] [address] Sep, [place] [address] [facility] [address] [facility] [address] Sep, [place] [address] [facility] [address] [facility] [address] Sep, [address] [place] [address] [facility] Sep, [place] [address] [facility] Sep, [place] [address] [facility] Sep, [place] [address] [facility] Sep, [place] [address] [facility] [address] [facility] [address] Aug, [place] [address] [facility] [address] [place] Aug, [facility] [address] [facility] [address] [place] Aug, [place] [address] SURG[facility] Aug, [place] [address] SURGERY [facility] Aug, [place] [address] [facility] Aug, [place] [address] ORTHOPEDIC OFFICE [facility] Aug, Pre-op exam Z01.818 [place] [address] [facility] Aug, [place] [address] [facility] Aug, [place] [address] [facility] Aug, [place] [address] IMMUNIZATIONS No Known Immunizations SOCIAL HISTORY Qualifiers [...] subcutaneously 22 24h Active units/mL daily [place] Active Ciclopirox Externally Twice 1 application 12h [...] For Report MR Lower Ext R w/o ([id number]) 2017-09-16 See Below For Report CR C-ARM [...] [facility] annually, f/u - bilateral leg edema, Pt [...] wound center,lab work done 03/07/2018 @ [facility], Patient came in with tubigrip bilateral , wound clin est, wound clinest, Wound CTR-follow up, Wound CTR-follow up, Wound CTR-follow up, Peer to Peer w/ Dr. Espino, Wound CTR-follow up, Wound CTR-follow up, Business Technology Professor Documentation, LAB, Wound CTR-follow up, Wound CTR-follow up, Wound CTR-follow up, Wound CTR-follow up, LAB, LAB, Wound CTR- follow up, Wound CTR-follow up, Wound CTR-follow up, Business Technology Professor Documentation, [facility], Wound CTR-follow up, Wound CTR-follow up, Pull PICC Line, Wound CTR-follow up, Wound CTR-follow up, LAB, Still taking doxycycline 100mg? , Wound CTR-follow up, Wound CTR-follow up, Wound CTR-follow up, Business Technology Professor Documentation, Wound CTR-follow up, Wound CTR-follow up, Call back, Business Technology Professor Documentation, Business Technology Professor Documentation, Business Technology Professor Documentation, Wound CTR-follow up, WCC, Wound CTR-follow up, Wound CTR-follow up, labs, D/C planning, bailey smetatarsal amputation of right foot, LAB, LAB, Wound CTR-NEW Insurance Providers [facility] Health Member Patient Patient Patient Patient Patient Subscriber Subscriber Subscriber Group Insurance Plan Plan Plan Plan ID Relationship Address Phone Name Date of ID Name Date of No Type Insurance Insurance Insurance Coverage to Subscriber Address Phone Name Dates MEDICARE [address] MEDICARE self [place] [id number] [facility] [id number] S-BLUE [phone] S-BLUE [place] [id number] [place] [address] [place] [address] SELF PAY self [place] [id number] AFTER BLUE [place] AFTER BLUE [facility] [id number] CROSS OTHER [address] [place] [phone] OTHER [place] [id number] [place] 1^MAIN DEMOCRAT [facility] PAYOR [id number]
--- OUTSIDE RECORDS SUMMARY | 2022-05-08 02:32 | XMS_ITS | Encounter Summary ---
:[address] [facility] Address [address] [place] [address] Care Team Providers Name Role Phone Unknown, Provider Primary Care Provider Encounter Details Date Type Department Care Team Description 03/05/2014 Results Only [facility] Eris Taylor MD Laboratory Services - [address] [place] [address] [place] [address] [phone] Social History Tobacco Use Types Packs/Day Years [...] ? DON HOANG ? Accession #: ? [id number] ? : ? 1945 (Age: 68) ??M [...] Address City/State/ZIP Code Phon e Number [facility] [address] [place] [address] SERVICES [facility] [address] [place] [address] documented in this encounter Visit Diagnoses Not on filedocumented in this encounter Care Teams Instrument Specialist Relationship Specialty Start Date End Date Unknown, Provider, PCP - General 03/07/14 07/12/14 documented as of this encounter
--- OUTSIDE RECORDS SUMMARY | 2022-05-08 02:32 | XMS_ITS | Encounter Summary ---
:1945 Author Organization [facility] Address [address] [place] [address] Care Team Providers Name Role Phone Unavailable Primary Care Provider Unavailable Encounter Details Date Type Department Care Team Description 03/05/2014 Hospital Encounter [facility]- [place] Unknown, Provider, [facility] 0 [facility] [phone] [place] [address] (Work) [phone] Social History Tobacco Use Types Packs/Day Years Used Date Never Assessed Sex Assigned at Date Recorded Not on file documented as of this encounter Discharge Disposition Disposition Code Departure Means Destination Home or Self Penitentiary documented in this encounter Plan of Treatment Not on filedocumented as of this encounter Visit Diagnoses Not on filedocumented in this encounter
--- OUTSIDE RECORDS SUMMARY | 2022-05-08 02:32 | XMS_ITS | Encounter Summary ---
:1945 Author Organization [facility] Address [address] [place] [address] Care Team Providers Name Role Phone Unknown, Provider Primary Care Provider Encounter Details Date Type Department Care Team Description 07/11/2014 Hospital Encounter [facility]- Heather Unknown, Provider, [facility] [address] [place] [address] [place] [address] (Work) [phone] Social History Tobacco Use Types Packs/Day Years Used Date Never Assessed Sex Assigned at Date Recorded Not on file documented as of this encounter Discharge Disposition Disposition Code Departure Means Destination Home or Self Longterm documented in this encounter Plan of Treatment Not on filedocumented as of this encounter Visit Diagnoses Not on filedocumented in this encounter Care Teams Meat Smoker Relationship Specialty Start Date End Date Unknown, Provider, PCP - General 03/07/14 07/12/14 documented as of this encounter
[2022-05-08 14:32] LABS: Prothrombin Time 10.4 sec (9.3-11.0)
== END 2022-05-08 02:17 | disposition home or self-care (01) ==
LOC: LBO 02:16
PROVIDERS: PCP Family Medicine; Visit Provider Family Medicine
DX: Z51.81 Encounter for therapeutic drug level monitoring (principal)
CPT/HCPCS: 36415; 85610

== ENCOUNTER 2022-05-12 03:40 | Outpatient (CLI) | payer MEDICARE, BC, SELFPAY ==
[2022-05-12 14:06] LABS: HCT 42.9 % (40.0-50.0); HGB 13.6 g/dL (13.5-17.5); MCH 29.2 pg (27.0-33.0); MCHC 31.7 % (32.0-36.0); MCV 92 fL (80-95); MPV 9.2 fL (8.0-11.0); Platelet Count 200 10^3/uL (130-400); RBC 4.65 10^6/uL (4.36-5.78); RDW 14.8 % (11.8-14.1); WBC 6.62 10^3/uL (4.4-10.8)
[2022-05-12 14:20] LABS: Hemoglobin A1C 6.6 % (<5.7)
[2022-05-12 14:32] LABS: Iron 55 ug/dL (65-175)
[2022-05-12 14:32] LABS: COMMENT (LAB VIEW ONLY) 50.66 mg/dL; Microalb ug/mg Crea 21.3 ug/mg Cr
[2022-05-12 14:42] LABS: Calculated LDL 19 mg/dL (<100); Cholesterol 110 mg/dL (<200); HDL Cholesterol 31 mg/dL (40-60); TSH (W/Ref FT4) 0.64 uIU/mL (0.36-3.74); Triglyceride 300 mg/dL (<150)
[2022-05-12 16:53] LABS: Lab Add On Test DONE
[2022-05-12 17:18] LABS: Ferritin 71 ng/mL (26-388)
== END 2022-05-12 03:41 | disposition home or self-care (01) ==
LOC: LBO 03:40
PROVIDERS: PCP Family Medicine; Visit Provider Family Medicine
DX: E61.1 Iron deficiency (principal); E11.65 Type 2 diabetes mellitus with hyperglycemia; E89.0 Postprocedural hypothyroidism; I25.10 Atherosclerotic heart disease of native coronary artery without angina pectoris; F32.89 Other specified depressive episodes; I48.19 Other persistent atrial fibrillation; Z79.01 Long term (current) use of anticoagulants
CPT/HCPCS: 36415; 80061; 85027; 82043; 82570; 82728; 83036; 83540; 84443

== ENCOUNTER 2022-05-22 08:10 | Outpatient (RCR) | payer MEDICARE, BC, SELFPAY ==
--- OUTSIDE RECORDS SUMMARY | 2022-04-27 08:11 | XMS_ITS | Encounter Summary ---
:1945 [place] [address] Care Team Providers Name Role Phone Lovely Vicente MD Primary Care Provider Encounter Details Date Type Department Care Team Description 12/30/2021 Notes Only [facility] [place] [address] Social History Tobacco Use Types Packs/Day Years Used Date Former Smoker Cigarettes 3 5 Quit: 07/26/18 69 Smokeless Tobacco: Never Used Alcohol Use Standard Drinks/Week Comments No 0 (1 standard drink = 0.6 oz pure alcoho l) Sex Assigned at Date Recorded Not on file documented as of this encounter Progress Notes Reebka Deluca RN - 12/30/2021 2:50 PM EDT Cardiac rehab referral received on this patient from Heart Failure team. DX: HFrEF. Referral placed to [facility] documented in this encounter Plan of Treatment Upcoming Encounters Date Type Specialty Care Team Description 05/28/2022 Appointment Cardiology Zulma Dolan MD [facility] [address] [place], [place] [address] (Wo rk) 05/28/2022 Laboratory Appointment Lab 05/28/2022 Office Visit Cardiology Zulma Dolan MD [facility] [place] [address] Liz Poole PA [facility] [place] [address] 06/10/2022 Office Visit Dermatology Laura Scherer MD [facility] ER [address] [place], [place] [address] (Wo rk) documented as of this encounter Visit Diagnoses Not on filedocumented in this encounter Care Teams Accessioner Relationship Specialty Start Date End Date Lovely Vicente MD PCP - General 04/16/[address] [place] [address] documented as of this encounter
--- OUTSIDE RECORDS SUMMARY | 2022-04-27 08:11 | XMS_ITS | Encounter Summary ---
:1945 [place] [address] Care Team Providers Name Role Phone Lovely Vicente MD Primary Care Provider Encounter Details Date Type Department Care Team Description 12/25/2021 Office Visit [place]iology [place] [facility] [place] Poole, Chronic systolic heart [facility] [place] [address] Cardiology Dept [phone] [place], [place] [address] Social History Tobacco Use Types [...] year old male w/ a h/o MARIA VCITORIA (using CPAP), DM2, COPD, HTN, HLD, GERD, [...] [place], transferred from [facility], respiratory distress with hypoxia 86% on [...] mg PO daily in place of Lasix. [place] is new for him and he will [...] Antiplatelet (DAPT) Recommendations above ? TTE from [facility] 12/08/21 ?? 07/28/2019 Echocardiogram: SUMMARY: 1. [...] regurgitation present. 07/07/2019 - 07/21/2019 Zio Patch Buyer Tobacco Head The patient had a minimum heart rate [...] hyperkalemia 4.9 today 6. Post-op atrial fibrillation [id number] (CHF, HTN, DM, vascular disease, thromboembolism) [...] Zulma Dolan MD [facility] [address], [place] [address] (Wo rk) 05/28/2022 Laboratory Appointment Lab 05/28/2022 Office Visit Cardiology Zulma Dolan MD [facility] [place] [address] Liz Poole PA [facility] [place] [address] 06/10/2022 Office Visit Dermatology Laura Scherer MD [facility] ER [address] [place], [place] [address] (Mikayla alcaraz) documented as of this encounter Results (ABNORMAL) pro-Brain Natriuretic Peptide (12/25/2021 7:46 AM EDT) athologist Signature ProBNP 1,380 (H) <=124 [facility] pg/mL [facility] Specimen Anatomical Collection Method Collection Time Receive d Time (Source) Location / / Volume Laterality Blood 12/25/2021 7:46 AM 8:01 EDT AM EDT Resulting Agency Comment Spec In Lab Zulma Plunkett MD CHEMISTRY ORDERABLES Performing Organization Address City/State/[place] [address] (ABNORMAL) Basic Metabolic Panel (non-fasting) (12/25/2021 7:46 AM EDT) athologist Signature Glucose Lvl 272 (H) 65 - 199 [facility] mg/dL [facility] Comment: Diabetes: >=200 mg/dL plus symp toms BUN 62 (H) 10 - 20 mg/dL [facility] Creatinine 1.81 (H) 0.80 - 1.50 mg/dL [facility] Sodium 134 (L) 135 - 145 mmol/L [facility] Potassium 4.9 3.5 - 5.0 mmol/L [facility] LABORATORY Calcium 9.4 8.5 - 10.5 mg/dL [facility] Estimated GFR 36 (L) [...] Organization Address City/State/[place] [address] documented in this encounter Visit Diagnoses Diagnosis Chronic systolic heart failure documented in this encounter Care Teams Acrobatic Rigger Relationship Specialty Start Date End Date Lovely Vicente MD PCP - General 04/16/[address] [place] [address] documented as of this encounter
--- OUTSIDE RECORDS SUMMARY | 2022-04-27 08:11 | XMS_ITS | Encounter Summary ---
:1945 Author Organization [facility] [place] [address] Care Team Providers Name Role Phone Lovely Vicente MD Primary Care Provider Encounter Details Date Type Department Care Team Description 03/26/2022 Office Visit Cardiology at [facility] Vitaliy Nobles MD Chronic systolic heart failure; [facility] ONE MEDICAL ASCVD (ar teriosclerotic cardiovascular disease); [facility] Cardiomyopathy, ischemic [place], [place] CARDIOLOGY [address] [place] [address] [phone] Social History Tobacco Use Types Packs/Day Years [...] included. [facility] [place] [address] CARDIOLOGY OUTPATIENT CLINIC VISIT [facility] Don Mccollum Kushal 03/26/2022 Referring Providers: MD Jules Cr Joyce, MD [address] [place] [id number] CHIEF COMPLAINT: I am doing well CARDIAC-RELEVANT [...] using a 2.0 x 26 mm ORION Gaines TUCKER stent. This completes therevascularization of all [...] in [address] Lovely Vicente MD [address] [place] [address] HISTORY OF PRESENT ILLNESS: Don Fatima is [...] using a 2.0 x 26 mm ORION Gaines TUCKER stent. This completes the revascularization of [...] at [facility] MAIN OR ??? PRO AMPUTATION FOOT, TRANSMETATARSAL Right 08/09/2017 AMPUTATION, TRANSMETATARSAL (WRVU 12.71) performed by Yonathan Smith MD at [facility] OR ??? PRO CABG, ARTERIAL, SINGLE N/A 07/07/2017 @CABG, USING ARTERIAL GRAFT;SINGLE ARTERIAL GRAFT (WRVU 33.75) performed by Yuan Retana MD at [facility] OR ??? PRO CABG, ARTERY-VEIN, TWO N/A 07/07/2017 @CABG, TWO VENOUS GRAFTS & ARTERIAL GRAFT (WRVU 7.93) performed by Yuan Retana MD at [facility] OR ??? PRO COLONOSCOPY, REMV LESN, SNARE 01/16/2014 COLONOSCOPY, POLYPECTOMY, REMOVAL LESION BY SNARE performed by Nohemi Jaimes MD at [facility] ENDOSCOPY ??? PRO DRESSING CHANGE UNDER ANESTHESIA Right 08/11/2017 (MSURG) DRESSING CHANGE (FOR OTHER THAN IVAN) UNDER ANES. (WRVU 0.86) performed by Lamar Smith MD at [facility] MAIN OR ??? PRO ENDOSCOPY W/VIDEO-ASST VEIN HARVEST, CABG Right 07/07/2017 ENDOSCOPIC HARVEST VEIN(S) FOR CABG (WRVU 0.31) performed by Yuan Retana MD at [facility] MAIN OR ??? PRO PERC TRLUML CORONARY STENT W/ANGIO ONE ART/BRANCH N/A 01/30/2022 STENT PLACEMENT-SINGLE MAJOR CORONARY ARTERY OR BRANCH performed by Vitaliy Nobles MD at [facility] CATH LABS ??? PRO THYROIDECTOMY 03/28/2013 THYROIDECTOMY, TOTAL OR COMPLETE performed by Manny Mcknight MD at [facility] MAIN OR SOCIAL HISTORY: reports that [...] using a 2.0 x 26 mm ORION Gaines TUCKER stent. This completes the revascularization of [...] Sincerely, Dr. Vitaliy Nobles MD [place] [address] Administrator Interventional Cardiology 03/26/2022 CC: Lovely Vicente MD [...] Admitted to [facility] on 12/08/21, transferred from [facility], respiratory distress with hypoxia 86% on [...] Antiplatelet (DAPT) Recommendations above ? TTE from [facility] 12/08/21 ?? 07/28/2019 Echocardiogram: SUMMARY: 1. [...] regurgitation present. 07/07/2019 - 07/21/2019 Zio Patch Room Worker The patient had a minimum heart [...] 12.5 mg daily 6. Post-op atrial fibrillation [id number] (CHF, HTN, DM, vascular disease, thromboembolism) [...] Dolan MD [facility] [place] [address] (Wo rk) 05/28/2022 Laboratory Appointment Lab 05/28/2022 Office Visit Cardiology Zulma Dolan MD [facility] [place] [address] Liz Poole PA [facility] [place] [address] 06/10/2022 Office Visit Dermatology Laura Scherer MD [facility] [address] [place], [place] [address] (Wo rk) documented as of this encounter Visit Diagnoses Diagnosis Chronic systolic heart failure ASCVD (arteriosclerotic cardiovascular d isease) Unspecified cardiovascular disease Cardiomyopathy, ischemic Other specified forms of chronic ischemi c heart disease documented in this encounter Care Teams Farm Crew Member Relationship Specialty Start Date End Date Lovely Vicente MD PCP - General 04/16/[address] [place] [address] documented as of this encounter
--- OUTSIDE RECORDS SUMMARY | 2022-04-27 08:11 | XMS_ITS | Encounter Summary ---
:1945 Author Organization [facility] [place] [address] Care Team Providers Name Role Phone Lovely Vicente MD Primary Care Provider Reason for Visit Reason Comments Medication Refill Encounter Details Date Type Department Care Team Description 04/07/2022 Refill Cardiology [place] [facility] [place] Janneth Padilla PA Medication Refill [facility] [place] [address] CARDIOLOGY DEPT. [phone] [place], [place] [address] (Wo rk) Social [...] [facility] [address] [place], [place] [address] (Wo rk) 05/28/2022 Laboratory Appointment Lab 05/28/2022 Office Visit Cardiology Zulma Dolan MD [place] [address] Liz Poole PA [facility] [place] [address] 06/10/2022 Office Visit Dermatology Laura Scherer MD [facility] [address] [place], [place] [address] (Wo rk) documented as of this encounter Visit Diagnoses Not on filedocumented in this encounter Care Teams Wood Fence Installer Relationship Specialty Start Date End Date Lovely Vicente MD PCP - General 04/16/[address] [place] [address] [address] [place] [address] documented as of this encounter
--- OUTSIDE RECORDS SUMMARY | 2022-04-27 08:11 | XMS_ITS | Encounter Summary ---
:1945 [place] [address] Care Team Providers Name Role Phone Lovely Vicente MD Primary Care Provider Reason for Visit Reason Onset Date Comments Follow-up 02/26/2022 Entresto start Encounter Details Date Type Department Care Team Description 02/26/2022 Telephone Cardiology at [facility] Martha Comer, Follow-up ([facility] RN start) [place] [address] Social History Tobacco Use Types Packs/Day [...] 03/05/22 Getting labs done at : [facility] Order e-faxed by STEPHANIE Poole on 02/24/22. /pt to call on 03/05/22 letting us know to get the BMP results from [facility]. Nursing to get results and contact pt to see how he is tolerating the Entresto. They are to call sooner with any questions/concerns. documented in this encounter Plan of Treatment Upcoming Encounters Date Type Specialty Care Team Description 05/28/2022 Appointment Cardiology Zulma Dolan MD [facility] [place], [place] [address] (Wo rk) 05/28/2022 Laboratory Appointment Lab 05/28/2022 Office Visit Cardiology Zulma Dolan MD [facility] [place] [address] Liz Poole PA [facility] [place] [address] 06/10/2022 Office Visit Dermatology Laura Scherer MD [facility] [address] [place], [place] [address] (Wo rk) documented as of this encounter Visit Diagnoses Not on filedocumented in this encounter Care Teams Cloth Folder Machine Relationship Specialty Start Date End Date Lovely Vicente MD PCP - General 04/16/[address] [place] [address] documented as of this encounter
--- OUTSIDE RECORDS SUMMARY | 2022-04-27 08:11 | XMS_ITS | Encounter Summary ---
:1945 Author Organization [facility] [place] [address] Care Team Providers Name Role Phone Lovely Vicente MD Primary Care Provider Reason for Visit Reason Onset Date Comments Medication Refill 03/11/2022 Encounter Details Date Type Department Care Team Description 03/06/2022 Refill Cardiology at [facility] Liz Poole PA Medication Refill [facility] Jorge mcnamara [facility] [place] [address] Cardiology Dept [phone] [place], [place] [address] (Wo rk) Social History Tobacco [...] MD [facility] er [address] [place], [place] [address] (Wo rk) 05/28/2022 Laboratory Appointment Lab 05/28/2022 Office Visit Cardiology Zulma Dolan MD [facility] [place] [address] Liz Poole PA [facility] [place] [address] 06/10/2022 Office Visit Dermatology Laura Scherer MD [facility] ER DR [address] [place], [place] [address] (Wo rk) documented as of this encounter Visit Diagnoses Not on filedocumented in this encounter Care Teams Erecting Engineer Relationship Specialty Start Date End Date Lovely Vicente MD PCP - General 04/16/[address] [place] [address] documented as of this encounter
--- OUTSIDE RECORDS SUMMARY | 2022-04-27 08:11 | XMS_ITS | Encounter Summary ---
:1945 Author Organization [facility] Address [facility] [place] [address] Care Team Providers Name Role Phone Lovely Vicente MD Primary Care Provider Reason for Visit Reason Onset Date Comments Medication Refill 03/06/2022 Metoprolol Succinate Encounter Details Date Type Department Care Team Description 03/06/2022 Refill Cardiology at [facility] [place] Liz Poole PA Medication Refill [facility] (Sd toprolol Succinate) [place] [address] Cardiology Dept [phone] [place], [place] [address] (Wo rk) Social History Tobacco [...] MD [facility] er [address] [place], [place] [address] (Wo rk) 05/28/2022 Laboratory Appointment Lab 05/28/2022 Office Visit Cardiology Zulma Dolan MD [facility] [place] [address] Liz Poole PA [facility] [place] [address] 06/10/2022 Office Visit Dermatology Laura Scherer MD [facility] ER [address] [place], [place] [address] (Wo rk) documented as of this encounter Visit Diagnoses Diagnosis Chronic systolic heart failure Cardiomyopathy, ischemic Other specified forms of chronic ischemi c heart disease documented in this encounter Care Teams Paint Mixer Machine Relationship Specialty Start Date End Date Lovely Vicente MD PCP - General 04/16/[address] [place] [address] documented as of this encounter
--- OUTSIDE RECORDS SUMMARY | 2022-04-27 08:11 | XMS_ITS | Encounter Summary ---
:1945 Author Organization [facility] Address [facility] [place] [address] Care Team Providers Name Role Phone Lovely Vicente MD Primary Care Provider Reason for Visit Auth/Cert Specialty Diagnoses / Procedures Referred By Contact Refer red To Contact Diagnoses ASCVD (arteriosclerotic cardiovascular disease) [I25.10] Vitaliy Nobles MD [facility] Procedures PRO PERC TRLUML CORONARY STENT W/ANGIO ONE ART/BRANCH CARDIAC CATHETERIZATION STENT PLACEMENT-SINGLE MAJOR CORONARY ARTERY OR BRANCH [facility] [place] [address] Referral ID Status Reason Start Date Expiration Date Visits Requ ested Visits Authorized [id number] 1 1 Encounter Details Date Type Department Care Team Description 01/30/2022 Surgery Technical Implementation Lead Asa Coulter MD CARDIAC CATHETERIZATION [facility] [place] [address] [place] [address] [phone] (Wo rk) Social History Tobacco Use Types [...] Clopidogrel. Please follow up with your head boys golf coach in the next 4-6 weeks. We have made a referral to cardiac rehab. Please see the attached instructions regarding care to your right wrist access site. AttachmentsThe following attachments cannot be sent through Care Everywhere. 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 I had referred him to cardiac rehab at [facility] last month per HF team. He was waiting until this intervention before starting the program. Reviewed managing angina /use of sl nitroglycerin. Given parameters for home exercise. 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 We discussed short walks several times per day. Will send [facility] his discharge summary from this admission. The patient should be contacted by the Program within 1- 2 weeks from discharge. Brief Op Note - Vitaliy Nobles MD - 01/30/2022 10:19 AM EDT Images from the original note were not included. [facility] [place] [address] CORONARY ANGIOGRAM AND PERCUTANEOUS CORONARY INTERVENTION REPORT Patient: Don Fatima : 1945 MR number: [id number] Date of Service: 01/30/2022 Cooker Meal: Vitaliy Nobles MD Fellow: KEYON Elizabeth INDICATION: [...] a long 2.0 x 26 mm HARDEEP Heyworth TUCKER stent and positioned it at the [...] using a 2.0 x 26 mm HARDEEP Heyworth TUCKER stent. This completes the revascularization ofall [...] MD [facility] [place] [address] [place] 0[address] (Wo rk) 05/28/2022 Laboratory Appointment Lab 05/28/2022 Office Visit Zulma Garrison MD [facility] [place] [address] Liz Poole PA [facility] [place] [address] 06/10/2022 Office Visit Dermatology Laura Scherer MD [facility] ER DR [address]-DERMAT [facility] [place] [address] (Wo rk) Scheduled Orders Name [...] Abs (ANC) 3.96 1.70 - [facility] 6.10 [facility] x10(3)/[facility] LABORATORY Lymphocytes % 16.3 % [facility] LABORATORY Lymphocytes Abs 0.9 0.9 - 3.2 [facility] x10(3)/[facility] LABORATORY Monocytes % 10.0 % [facility] LABORATORY Monocyte Abs 0.6 0.3 - 0.9 [facility] x10(3)/[facility] LABORATORY Eosinophils % 0.5 % [facility] LABORATORY Eosinophils Abs 0.0 0.0 - 0.4 [facility] x10(3)/[facility] LABORATORY Basophils % 0.5 % [facility] LABORATORY Basophils Abs 0.0 0.0 - 0.1 [facility] x10(3)/[facility] LABORATORY Immature Gran % 0.90 % [facility] [...] Organization Address City/State/[place] [address] (ABNORMAL) Hemogram (01/30/2022 2:12 PM EDT) Analysis Performed At Patho logist Time Signature WBC 5.5 4.0 - 9.5 [facility] x10(3)/[facility] LABORATORY RBC 4.30 (L) 4.58 - [facility] 5.54 [facility] x10(6)/[facility] LABORATORY Hemoglobin 12.7 (L) 13.7 - [place] 16.5 g/dL [facility] LABORATORY Hematocrit 39.4 (L) 40.5 - [place] 48.5 % [facility] LABORATORY MCV 91.6 82.9 - [place] 93.1 [facility] LABORATORY MCH 29.5 27.5 - [place] 32.1 pg [facility] LABORATORY MCHC 32.2 32.0 - [place] 35.7 g/dL [facility] LABORATORY Platelets 172 145 - 357 [facility] x10(3)/[facility] LABORATORY RDWSD 54.5 (H) 36.0 - [place] 45.0 [facility] LABORATORY RDWCV 16.4 (H) 11.4 - [place] 13.8 % [facility] LABORATORY MPV 9.2 7.6 - 12.9 [place] [facility] LABORATORY nRBC % Auto 0.0 % [facility] LABORATORY nRBC Abs Auto 0.000 0.000 - [place] 0.000 [facility] x10(3)/[facility] LABORATORY Specimen Anatomical Collection Method Collection Time Receive d Time (Source) Location / / Volume Laterality Blood 01/30/2022 2:12 PM 2 2:37 EDT PM EDT Resulting Agency Comment Spec In Lab Eddi Elizabeth Jr., MD HEMATOLOGY ORDERABLES Performing Organization Address City/State/[place] [address] (ABNORMAL) Basic Metabolic Panel (non-fasting) (01/30/2022 2:12 PM EDT) athologist Signature Glucose Lvl 163 65 - 199 [facility] LABOR[facility]ORY Comment: Diabetes: [...] Organization Address City/State/[place] [address] POCT Glucose (01/30/2022 1:41 PM EDT) athologist Signature POC Glucose 148 65 - 199 [facility] mg/dL [facility] LABORATORY Comment: [...] [facility]/ZIP Code Phon e Number [address] POCT Glucose (01/30/2022 10:48 AM EDT) P athologist Signature POC Glucose 193 65 - 199 [facility] mg/dL [facility] LABORATORY Comment: Supplemental ranges: <140 mg/dL before meals <180 mg/dL all other times of the day Specimen Anatomical Collection Method Collection Time Receive d Time (Source) Location / / Volume Laterality Blood 01/30/2022 10:48 01/30/2022 AM EDT 10:48 AM EDT Vitaliy Nobles MD POINT OF CARE TEST ORDERABLE S Performing Organization Address [facility] [place] [address] EKG 12 Lead (01/30/2022 10:33 AM EDT) Component Value Ref Range Test Analysis Performed Pathologis t Method Time At Signature Ventricular rate 64 BPM MUSE SYSTEM Atrial Rate 64 BPM MUSE SYSTEM P-R Interval 162 ms MUSE SYSTEM QRS Duration 94 ms MUSE SYSTEM Q-T Interval 422 ms MUSE SYSTEM QTC Calculated 435 ms MUSE SYSTEM (Bezet) Calculated P [place] 41 degrees MUSE SYSTEM Calculated R [place] -27 degrees MUSE SYSTEM Calculated T [place] 104 degrees MUSE SYSTEM INTERPRETATION Normal sinus rhythm MUSE SYSTEM Anterolateral infarct (cited on or before 09-DEC-2021) Abnormal ECG When compared with ECG of 10-DEC-2021 11:17, No significant change was found Confirmed by Gary Perez ([id number]) on 01/30/2022 5:57:5 2 PM Specimen Anatomical Collection Method Collection Time Receive d Time (Source) Location / / Volume Laterality 01/30/2022 10:33 01/30/2022 5:57 AM EDT PM EDT Vitaliy Nobles MD ECG ORDERABLES Performing Organization Address City/[facility]/ZIP Code Phon e Number MUSE SYSTEM CARDIAC CATHETERIZATION (01/30/2022 10:16 AM EDT) Anatomical Region Laterality Modality Other Specimen (Source) Anatomical Location Collection Method / Collectio n Time Received Time / Laterality Volume Narrative 01/30/2022 2:09 PM EDT ?[facility] ? Cardiac Cathete rization/Intervention Report ? Patient Name: Don Fatima. ? Procedure Date: 01/30/2022 ? A #: [id number] ? Primary Physician: Nobles, Vitaliy P ? Case #: [id number] ? File Name: [id number] ? Catheterization Order Number: [id number] ? [facility]Technical [facility] ? Final Report [place], [place] ? Patient Name: ? Don E. Stewa rt ? ID#: ?[id number] ? : ?1945 ? Procedure Date: ? [...] ?the director of cath lab visit is stable kn own [...] guiding catheter an d a 3.5 Fr [facility] [place] [address] ??20 Mhz ?using Manual pullback. ??Imagin [...] A premounted 2.00 x 26 mm Hardeep Heyworth (TUCKER) ? was deployed wi a maximum [...] Wedelivered along 2.0 x 26 mm HARDEEP Heyworth ? TUCKER stent and p ositioned it [...] prior to arrival in the director of cath lab. ?Recommended anti-platelet/anti- thrombotic regimen: ?Continue [...] may require ?modification of this regimen. [facility] ?questions. ?The [...] using a 2.0 x 26 mm HARDEEP Heyworth TUCKER stent. ?This completes the revasculariz ation [...] Vitaliy Nobles MD - 03/06/2022 [facility] Cardiac Catheterization/Intervention Re port Patient Name: Don Fatima Procedure Date: 01/30/2022 A #: [id number] Primary Physician: iVtaliy Nobles Case #: [id number] File Name: [id number] Catheterization Order Number: [id number] [facility] Technical [facility] Final Report [place], [place] Patient Name: Don Fatima ID#: [...] the director of cath lab visit is stable known CAD. Chest pain [...] 1.5 guiding catheter and a 3.5 Fr [facility] [place] [address] 20 Mhz using Manual pullback. Imaging [...] A premounted 2.00 x 26 mm Hardeep Heyworth (TUCKER) was deployed with a maximum inflation [...] along 2. 0 x 26 mm HARDEEP Heyworth TUCKER stent and positioned it at the [...] administered prior t o arrival in the director of cath lab. Recommended anti-platelet/anti-thrombot ic regimen: Continue aspirin [...] modification of this regimen. Consult D [facility] Interventional Cardiology for [...] using a 2.0 x 26 mm HARDEEP Heyworth TUCKER stent. This completes the revascularization of [...] 212 (H) 65 - 199 [facility] mg/dL [facility] LABORATORY Comment: Supplemental ranges: <140 mg/dL before meals <180 mg/dL all other times of the day Specimen Anatomical Collection Method Collection Time Receive d Time (Source) Location / / Volume Laterality Blood 01/30/2022 9:04 AM 2 9:04 EDT AM EDT Vitaliy Nobles MD POINT OF CARE TEST ORDERABLE S Performing Organization Address City/State/[place] [address] (ABNORMAL) POCT Glucose (01/30/2022 8:10 AM EDT) athologist Signature POC Glucose 224 (H) 65 - 199 [facility] mg/dL [facility] LABORATORY Comment: Supplemental ranges: <140 mg/dL before meals <180 mg/dL all other times of the day Specimen Anatomical Collection Method Collection Time Receive d Time (Source) Location / / Volume Laterality Blood 01/30/2022 8:10 AM 2 8:10 EDT AM EDT Vitaliy Nobles MD POINT OF CARE TEST ORDERABLE S Performing Organization Address City/State/[place] [address] documented in this encounter Visit Diagnoses Diagnosis ASCVD (arteriosclerotic cardiovascular d isease) Unspecified cardiovascular disease 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 ASHD (arteriosclerotic heart disease) Coronary atherosclerosis of unspecified type of vessel, [place] or graft ASCVD (arteriosclerotic cardiovascular d isease) Unspecified cardiovascular disease documented in this encounter Admitting Diagnoses Diagnosis CAD (coronary artery disease) Coronary atherosclerosis of unspecified type of vessel, [place] or graft documented in this encounter Administered [...] Given 02/2022 10:11 AM EDT 100 mcg (PEANUT CLEANER) ONCE PRN, Starting on Wed01/30/22 at 0927, [...] 15 (Continued Bag - Provider: Maddison Farmer, AVMSI) 50 mL/hr, Intravenous, CONTINUOUS, Start ing on [...] Procedure), Routine niCARdipine (Cardene) (100 mcg/mL) dilution (PEANUT CLEANER) (CANCELED ) 0927 (Given - Provider: Vitaliy [...] (Intra-Procedure) documented in this encounter Care Teams Aeronautical Design Engineer Relationship Specialty Start Date End Date Lovely Vicente MD PCP - General 04/16/[address] [place] [address] documented as of this encounter
--- OUTSIDE RECORDS SUMMARY | 2022-04-27 08:11 | XMS_ITS | Clinical Summary ---
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 with documented [...] Dolan MD [facility] er Dr [place] 0375 (Wo rk) 05/28/2022 Laboratory Appointment Lab 05/28/2022 Office Visit Cardiology Zulma Dolan MD [facility] [place] [address] Liz Poole PA [facility] Cardiology [place] [address] 06/10/2022 Office Visit Dermatology Laura Scherer MD [facility] ER DR [address]JA [address], [place] 037 (Wo rk) Health Maintenance Due Date Last Done Comments Covid-19 Vaccine (#1) 1950 Pneumoccocal Vaccine: 65+ (1 - PCV) 1952 Hepatitis C Screening 1964 Tdap adult 1965 Tetanus vaccine 1965 Zoster vaccine (1 of 2) 1996 Colonoscopy 01/16/2019 01/16/2014, 01/16/2014 Influenza (Flu) vaccine (1 of - 03/26/2022 03/29/2013, Influenza standard series) Medical Devices Implanted Type Area Rn Community Health Device Shelf Model / Identifier Expiration Serial / Date Lot Cable,Cut,Edg,Blnt,Ss,3tpr ([id number]) - [id number] IMPLANTS Midline: [employer] 04/01/2022 [id number] / Implanted: Qty: 4 on 07/07/2017 by Yuan Retana MD at [facility] [employer] - / [id number] Procedures Procedure Name Priority Date/Time Associated Diagnosis [...] Time Signature WBC 7.2 4.0 - 9.5 [facility] x10(3)/[facility] LABORATORY RBC 4.41 (L) 4.58 - [facility] 5.54 [facility] x10(6)/[facility] LABORATORY Hemoglobin 13.2 (L) 13.7 - [place] 16.5 g/dL [place] LABORATORY Hematocrit 40.9 40.5 - [place] 48.5 % [place] LABORATORY MCV 92.7 82.9 - [facility] 93.1 [facility] LABORATORY MCH 29.9 27.5 - [place] 32.1 pg [place] [facility]AT[facility] MCHC 32.3 32.0 - [place] 35.7 g/dL [place] LABORATORY Platelets 191 145 - 357 [facility] x10(3)/[facility] LABORATORY RDWSD 53.6 (H) 36.0 - [place] 45.0 [facility] LABORATORY RDWCV 15.6 (H) 11.4 - [place] 13.8 % [place] [facility] MPV 8.7 7.6 - 12.9 [facility] LABORATORY nRBC % Auto 0.0 % [facility] LABORATORY nRBC Abs Auto 0.000 0.000 - [facility] 0.000 [facility] x10(3)/[facility] LABORATORY Specimen Anatomical Collection Method Collection Time Receive d Time (Source) Location / / Volume Laterality Blood 02/19/2022 8:06 AM 8:09 EDT AM EDT Resulting Agency Comment Spec In Lab Liz BROWN HEMATOLOGY ORDERABLES Performing Organization Address City/State/[place] [address] (ABNORMAL) Differential, Automated (02/19/2022 8:06 AM EDT)Only the most recent of3 resultswithin the time period is included. [facility] Method Time Signature Neutrophils % 76.0 % [facility] LABORATORY Neutr Abs (ANC) 5.49 1.70 - [facility] 6.10 [facility] x10(3)/[facility] LABORATORY Lymphocytes % 10.8 % [facility] LABORATORY Lymphocytes Abs 0.8 (L) 0.9 - 3.[address] [facility] x10(3)/[facility] LABORATORY Monocytes % 10.2 % [facility] LABORATORY Monocyte Abs 0.7 0.3 - 0.[address] [facility] x10(3)/[facility] LABORATORY Eosinophils % 1.2 % [facility] LABORATORY Eosinophils Abs 0.1 0.0 - 0.[address] [facility] x10(3)/[facility] LABORATORY Basophils % 0.8 % [facility] LABORATORY Basophils Abs 0.1 0.0 - 0.[address] [facility] x10(3)/[facility] LABORATORY Immature [...] Abs 0.07 (H) 0.00 - 0.04 x10(3)/[facility] LABORATORY Specimen Anatomical Collection Method Collection Time Receive d Time (Source) Location / / Volume Laterality Blood 02/19/2022 8:06 AM 2 8:09 EDT AM EDT Resulting Agency Comment Spec In Lab Liz BROWN HEMATOLOGY ORDERABLES Performing Organization Address City/[facility]/[place] [address] (ABNORMAL) pro-Brain Natriuretic Peptide [...] Address City/[facility]/[place] [address] POCT Glucose (01/30/2022 1:41 PM EDT)Only the most recent of4 resultswithin the time period is included. P athologist Signature POC Glucose 148 65 - [address] [facility] mg/dL [place] [facility] Comment: Supplemental ranges: <140 mg/dL before meals <180 mg/dL all other times of the day Specimen Anatomical Collection Method Collection Time Receive d Time (Source) Location / / Volume Laterality Blood 01/30/2022 1:41 PM 2 1:41 EDT PM EDT Vitaliy Nobles MD POINT OF CARE TEST ORDERABLE S Performing Organization Address City/[facility]/ZIP Code Phon e Number [address] EKG 12 Lead (01/30/2022 10:33 AM EDT) Component Value Ref Range Test Analysis Performed Pathologis t Method Time At Signature Ventricular rate 64 BPM MUSE SYSTEM Atrial Rate 64 BPM MUSE SYSTEM P-R Interval 162 ms MUSE SYSTEM QRS Duration 94 ms MUSE SYSTEM Q-T Interval 422 ms MUSE SYSTEM QTC Calculated 435 ms MUSE SYSTEM (Bezet) Calculated P [place] 41 degrees MUSE SYSTEM Calculated R [place] -27 degrees MUSE SYSTEM Calculated T [place] 104 degrees MUSE SYSTEM INTERPRETATION Normal sinus rhythm MUSE SYSTEM Anterolateral infarct (cited on or before 09-DEC-2021) Abnormal ECG When compared with ECG of 10-DEC-2021 11:17, No significant change was found Confirmed by Gary Perez ([id number]) on 01/30/2022 5:57:5 2 PM Specimen Anatomical [...] Laterality Volume Narrative 01/30/2022 2:09 PM EDT ?[facility] ? Cardiac Cathete rization/Intervention Report ? Patient Name: Génesis Fatimarory Mccollum. ? Procedure Date: 01/30/2022 ? A #: [id number] ? Primary Physician: Nobles, Vitaliy P ? Case #: [id number] ? File Name: [id number] ? Catheterization Order Number: [id number] ? [facility]Applications Systems [facility] ? Final Report [place], [place] ? Patient Name: ? Don E. Stewa rt ? ID#: ?[id number] ? : ?1945 ? Procedure Date: ? [...] patient was ?designated as ASA Class III. [facility] clinical frailty scale is 5: Mildly [...] was Urgent. The indication for ?the laboratory geneticist visit is stable kn own CAD. Chest [...] guiding catheter an d a 3.5 Fr [place] [facility] [place] [address] ??20 Mhz ?using Manual pullback. ??Imagin [...] A premounted 2.00 x 26 mm Hardeep [place] (TUCKER) ? was deployed wi th a [...] Wedelivered along 2.0 x 26 mm HARDEEP [place] ? TUCKER stent and p ositioned it [...] administered prior to arrival in the laboratory geneticist. ?Recommended anti-platelet/anti- thrombotic regimen: ?Continue aspirin 81 [...] require ?modification of this regimen. C onsult [facility] Interventional Cardiology [...] using a 2.0 x 26 mm HARDEEP [place] TUCKER stent. ?This completes the revasculariz ation [...] Don Fatima Procedure Date: 01/30/2022 A #: [id number] Primary Physician: Vitaliy Nobles Case #: [id number] File Name: [id number] Catheterization Order Number: [id number] [facility] Applications Systems Engineer [facility] Final Report [place], [place] Patient Name: Don Fatima ID#: [...] was Urgent. The indication for the laboratory geneticist visit is stable known CAD. Chest pain symptom assessment was: Typical Angina. Technique: A 6 SLFr sheath was inserted in the [facility] radial artery utilizing the Seldinger [...] 1.5 guiding catheter and a 3.5 Fr [facility] [facility] [place] [address] 20 Mhz using Manual pullback. Imaging [...] atmospheres. A premounted 2.00 x 26 mm [place] (TUCKER) was deployed with a maximum inflation [...] along 2. 0 x 26 mm HARDEEP [place] TUCKER stent and positioned it at the [...] prior t o arrival in the laboratory geneticist. Recommended anti-platelet/anti-thrombot ic regimen: Continue aspirin 81 [...] using a 2.0 x 26 mm HARDEEP [place] TUCKER stent. This completes the revascularization of [...] stent insertion-coronary and peripheral intra vascular ultrasound. Vtialiy Nobles M.D. Electronically Signed by: Yoselin Lopez Report Finalized: 01/30/2022 14:02 Report Last Ammended: 03/06/2022 12:08 Vitaliy Nobles MD CARDIAC CATH ORDERABLES from Last 3 Months Insurance Payer Benefit Plan / Subscriber ID Effective Phone Address T ype Group Dates MEDICARE MEDICARE PART [id number] 2011-Prese [phone] [place] [address] [employer] [place] [id number] 2018-Prese [phone] [address] [place] [address] [place] [address] Advance Directives Documents on File Type Date Recorded Patient Rn Gyn Explanati on Advance Directives and Living 03/28/2013 [...] capacity to make decision: Yes Care Teams Truck Trailer Final Inspector Relationship Specialty Start Date End Date Lovely Vicente MD PCP - General 04/16/[address] [place] [address]
--- OUTSIDE RECORDS SUMMARY | 2022-04-27 08:11 | XMS_ITS | Encounter Summary ---
:1945 Author Organization [facility] Address [facility] [place] [address] Care Team Providers Name Role Phone Lovely Vicente MD Primary Care Provider Reason for Visit Reason Comments Prior Authorization Entresto 24-26mg tablets Encounter Details Date Type Department Care Team Description 02/20/2022 Specialty Pharmacy Pharmacy at [facility] Lamberto Smith Prior Authorization [facility] J (Entresto 24-26mg Drive tablets) [place] [id number] Social History Tobacco Use Types Packs/Day Years [...] Don Fatima Patient : 1945 Patient Address: [address] [place] [address] [place] [address] (home) Medication Name: ENTRESTO 24 MG-26 MG TABLET Medication ID: [id number] Patient Location: [facility] CARDIOLOGY 4A Patient Location Comment: Medication Strength Frequency Requested: Entresto 24-26mg tablets / One tablet twice daily Qty/Day Supply: New Start: New to Therapy Diagnosis & ICD-10 Code: Chronic systolic heart failure, I50.22 Subscriber Insurance: [employer] [facility] Subscriber Insurance Comment: Fax: Physician: LIZ CARRERA Physician Comment : PA Status: NO PA REQUIRED Insurance mandated Pharmacy: Unknown Fillable at [facility]: Yes Insurance requirements/notes: None Copay: $119.01 (goes to coverage gap/odalys monteiro) Copay assistance: [employer] Copay assistance comment: If cost isn't affordable, then we'll suggest enrollment in the currently open [facility] Heart Failure zoila, which provides up to $1000 in copay assistance. If zoila closes, or doesn't work out, then the patient can attempt enrollment in the water treatment technician assistance program, the [employer] Patient Assistance [employer] (NPAF). At which point we'd refer to [facility] for assistance with enrollment. Pharmacy staff [...] Cardiology Zulma Dolan MD [facility] [place] [address] (Wo rk) 05/28/2022 Laboratory Appointment Lab 05/28/2022 Office Visit Cardiology Zulma Dolan [facility] [place] [address] Liz Carrera PA [facility] [place] [address] 06/10/2022 Office Visit Dermatology Laura Scherer MD [facility] ER DR [address] [place], [place] [address] (Wo rk) documented as of this encounter Visit Diagnoses Not on filedocumented in this encounter Care Teams Senior Security Engineer Relationship Specialty Start Date End Date Lovely Vicente MD PCP - General 04/16/[address] [place] [address] documented as of this encounter
--- OUTSIDE RECORDS SUMMARY | 2022-04-27 08:11 | XMS_ITS | Encounter Summary ---
:1945 Author Organization [facility] [place] [address] Care Team Providers Name Role Phone Lovely Vicente MD Primary Care Provider Encounter Details Date Type Department Care Team Description 12/25/2021 Laboratory Appointment Lab 3L [facility] [place] [phone] Social History Tobacco Use Types Packs/Day Years [...] MD [facility] er [place], [place] [address] (Wo rk) 05/28/2022 Laboratory Appointment Lab 05/28/2022 Office Visit Cardiology Zulma Dolan MD [facility] [place] [address] Liz Poole PA [facility] [place] [address] 06/10/2022 Office Visit Dermatology Laura Scherer MD [facility] [address] [place] [address] (Wo rk) documented as of this encounter [...] (ABNORMAL) Differential, Automated (12/25/2021 7:46 AM EDT) [facility] gist Method Time Signature Neutrophils % 82.6 % [facility] LABORATORY Neutr Abs (ANC) 9.37 (H) 1.70 - [facility] 6.10 [facility] x10(3)/[facility] LABORATORY Lymphocytes % 7.1 % [facility] Lymphocytes Abs 0.8 (L) 0.9 - 3.2 [facility] x10(3)/[facility] LABORATORY Monocytes % 8.8 % [facility] Monocyte Abs 1.0 (H) 0.3 - 0.9 [facility] x10(3)/[facility] LABORATORY Eosinophils % 0.4 % [facility] Eosinophils Abs 0.0 0.0 - 0.4 [facility] x10(3)/[facility] LABORATORY Basophils % 0.4 % [facility] Basophils Abs 0.0 0.0 - 0.1 [facility] x10(3)/[facility] LABORATORY Immature [...] City/State/ZIP Code Phon e Number [place] [phone] HOSP[address] LABORATORY Drive (ABNORMAL) Hemogram (12/25/2021 7:46 AM EDT) Analysis Performed At Patho logist Time Signature WBC 11.4 (H) 4.0 - 9.5 [facility] x10(3)/[facility] LABORATORY RBC 4.23 (L) 4.58 - [facility] 5.54 [facility] x10(6)/[facility] LABORATORY Hemoglobin 12.3 (L) 13.7 - [facility] 16.5 g/dL [facility] Hematocrit 37.7 (L) 40.5 - [facility] RYAN 48.5 % [facility] LABORATORY MCV 89.1 82.9 - [facility] 93.1 [facility] LABORATORY MCH 29.1 27.5 - [place] 32.1 pg [facility]ORATORY MCHC 32.6 32.0 - [facility] 35.7 g/dL [facility] LAB[facility] Platelets 215 145 - 357 [facility] x10(3)/[facility] LABORATORY RDWSD 49.8 (H) 36.0 - [place] 45.0 [facility] RDWCV 15.2 (H) 11.4 - [facility] 13.8 % [facility] LABORATORY MPV 9.2 7.6 - 12.9 [facility] LABORATORY nRBC % Auto 0.0 % [facility]ORY nRBC Abs Auto 0.000 0.000 - [facility] 0.000 [facility] x10(3)/[facility] LABORATORY Specimen Anatomical Collection Method Collection Time Receive d Time (Source) Location / / Volume Laterality Blood 12/25/2021 7:46 AM 8:01 EDT AM EDT Resulting Agency Comment Spec In Lab Liz BROWN HEMATOLOGY ORDERABLES Performing Organization Address City/State/[place] [address] (ABNORMAL) Basic Metabolic Panel (non-fasting) (12/25/2021 7:46 AM EDT) P athologist Signature Glucose Lvl 272 (H) 65 - 199 [facility] mg/dL [facility] [...] Plunkett MD CHEMISTRY ORDERABLES Performing Organization Address City/[facility]/[place] [address] (ABNORMAL) pro-Brain Natriuretic Peptide (12/25/2021 7:46 AM EDT) P athologist Signature ProBNP 1,380 (H) <=124 [facility] pg/mL [facility] LABORATORY Specimen Anatomical Collection Method Collection Time Receive d Time (Source) Location / / Volume Laterality Blood 12/25/2021 7:46 AM 2 8:01 EDT AM EDT Resulting Agency Comment Spec In Lab Zulma Plunkett MD CHEMISTRY ORDERABLES Performing Organization Address City/[facility]/ZIP [facility] [place] [address] documented in this encounter Visit Diagnoses Diagnosis Chronic systolic heart failure documented in this encounter Care Teams Loading Unit Operator Powder Charging Relationship Specialty Start Date End Date Lovely Vicente MD PCP - General 04/16/[address] [place] [address] documented as of this encounter
--- OUTSIDE RECORDS SUMMARY | 2022-04-27 08:11 | XMS_ITS | Encounter Summary ---
:1945 Author Organization [facility] [place] [address] Care Team Providers Name Role Phone Lovely Vicente MD Primary Care Provider Reason for Visit Auth/Cert Specialty Diagnoses / Procedures Referred By Contact Refer red To Contact Diagnoses ASCVD (arteriosclerotic cardiovascular disease) [I25.10] Vitaliy Nobles MD [facility] Procedures PRO PERC TRLUML CORONARY STENT W/ANGIO ONE ART/BRANCH CARDIAC CATHETERIZATION STENT PLACEMENT-SINGLE MAJOR CORONARY ARTERY OR BRANCH [facility] [place] [address] Referral ID Status Reason Start Date Expiration Date Visits Requ ested Visits Authorized [id number] 1 1 Encounter Details Date Type Department Care Team Description 01/30/2022 Laboratory Lab 3L Katalina ASCVD (arterios clerotic Appointment [facility] cardiovas cular disease) [place] [address] Social History Tobacco Use Types Packs/Day Years [...] Dolan MD [facility] [place], [place] [address] (Wo rk) 05/28/2022 Laboratory Appointment Lab 05/28/2022 Office Visit Cardiology Zulma Dolan MD [facility] [place] [address] Liz Poole PA [facility] [place] [address] 06/10/2022 Office Visit Dermatology Laura Scherer MD [facility] DR [address] [place], [place] [address] (Wo rk) documented as of [...] (ABNORMAL) Differential, Automated (01/30/2022 7:19 AM EDT) [facility] gist Method Time Signature Neutrophils % 77.9 % [facility] LABORATORY Neutr Abs (ANC) 5.31 1.70 - [facility] 6.10 [facility] x10(3)/[facility] LABORATORY Lymphocytes % 12.0 % [facility] LABORATORY Lymphocytes Abs 0.8 (L) 0.9 - 3.[address] [facility] x10(3)/[facility] LABORATORY Monocytes % 8.1 % [facility] LABOR[facility]ORY Monocyte Abs 0.6 0.3 - 0.[address] [facility] x10(3)/[facility] LABORATORY Eosinophils % 0.4 % [facility]OR[facility]ORY Eosinophils Abs 0.0 0.0 - 0.[address] [facility] x10(3)/[facility] LABORATORY Basophils % 0.6 % [facility] LABORATORY Basophils Abs 0.0 0.0 - 0.[address] [facility] x10(3)/[facility] LABORATORY Immature Gran % 1.00 % [...] Abs 0.07 (H) 0.00 - 0.04 x10(3)/[facility] LABORATORY Specimen Anatomical Collection Method Collection Time Receive d Time (Source) Location / / Volume Laterality Blood 01/30/2022 7:19 AM 7:21 EDT AM EDT Resulting Agency Comment Spec In Lab Zulma BROWN HEMATOLOGY ORDERABLES Performing Organization Address City/State/ZIP [place] [address] (ABNORMAL) Hemogram (01/30/2022 7:19 AM EDT) Analysis Performed At Patho logist Time Signature WBC 6.8 4.0 - 9.[address] [facility] x10(3)/[facility] LABORATORY RBC 4.32 (L) 4.58 - [facility] 5.54 [facility] x10(6)/[facility] LABORATORY Hemoglobin 13.0 (L) 13.7 - [facility] 16.5 g/dL [facility] LABORATORY Hematocrit 39.8 (L) 40.5 - [facility] 48.5 % [facility] LABORATORY MCV 92.1 82.9 - [facility] 93.1 fL [facility] LABORATORY MCH 30.1 27.5 - [facility] 32.1 pg [facility] LABORATORY MCHC 32.7 32.0 - [place] 35.7 g/dL [facility] LABORATORY Platelets 172 145 - [address] [facility] x10(3)/[facility] LABORATORY RDWSD 54.5 (H) 36.0 - [place] 45.0 [facility] LABORATORY RDWCV 16.2 (H) 11.4 - [facility] 13.8 % [facility] LABORATORY MPV 9.0 7.6 - 12.9 [facility] LABORATORY nRBC % Auto 0.0 % [facility] LABORATORY nRBC Abs Auto 0.000 0.000 - [facility] 0.000 [facility] x10(3)/[facility] LABORATORY Specimen Anatomical Collection Method Collection Time Receive d Time (Source) Location / / Volume Laterality Blood 01/30/2022 7:19 AM 7:21 EDT AM EDT Resulting Agency Comment Spec In Lab Zulma BROWN HEMATOLOGY ORDERABLES Performing Organization Address City/State/ZIP [place] [address] (ABNORMAL) Basic Metabolic Panel (non-fasting) (01/30/2022 7:19 AM EDT) P athologist Signature Glucose Lvl 237 (H) 65 - [address] [facility] mg/dL [facility] LABORATORY Comment: Diabetes: >=200 mg/dL plus symp toms BUN 34 (H) 10 - 20 mg/dL [facility] LABORATORY Creatinine 1.45 0.80 - 1.50 [...] 15 mmol/L [facility] LABORATORY Calcium 9.5 8.5 - 10.5 [...] City/State/ZIP Code Phon e Number [place] [phone] HOSPITAL LAB[address]ORY [address] documented in this encounter Visit Diagnoses Diagnosis ASCVD (arteriosclerotic cardiovascular d isease) Unspecified cardiovascular disease documented in this encounter Care Teams Supervisor Salvage Relationship Specialty Start Date End Date Lovely Vicente MD PCP - General 04/16/[address] [place] [address] documented as of this encounter
--- OUTSIDE RECORDS SUMMARY | 2022-04-27 08:11 | XMS_ITS | Encounter Summary ---
:1945 Author Organization [facility] [place] [address] Care Team Providers Name Role Phone Lovely Vicente MD Primary Care Provider Reason for Visit Reason Onset Date Comments Advice Only 01/28/2022 Encounter Details Date Type Department Care Team Description 01/28/2022 Telephone Cardiology at [facility] Chitra Angela, parachute [place] [address] Social History Tobacco Use Types Packs/Day [...] Fatima assists patient with medications. Number for culture media laboratory assistant scheduling given and she will call them to verify this information Meds reviewed. As per our form from culture media laboratory assistant Eliquis hold for 48 hours prior. [...] Dolan MD [facility] [place], [place] [address] (Wo rk) 05/28/2022 Laboratory Appointment Lab 05/28/2022 Office Visit Cardiology Zulma Dolan MD [facility] [place] [address] Liz Poole PA [facility] [place] [address] 06/10/2022 Office Visit Dermatology Laura Scherer MD [facility] DR [address] [place], [place] [address] (Wo rk) documented as of this encounter Visit Diagnoses Not on filedocumented in this encounter Care Teams Digital Content Specialist Relationship Specialty Start Date End Date Lovely Vicente MD PCP - General 04/16/[address] [place] [address] documented as of this encounter
--- OUTSIDE RECORDS SUMMARY | 2022-04-27 08:11 | XMS_ITS | Encounter Summary ---
:1945 Author Organization [facility] [place] [address] Care Team Providers Name Role Phone Lovely Vicente MD Primary Care Provider Encounter Details Date Type Department Care Team Description 01/28/2022 Orders Only Television Receiver Analyzer Zulma Finch ASCVD (art eriosclerotic [facility] cardiovascular disease) [facility] [place] [address] [place], [place] [phone] (Work) [phone] Social History Tobacco Use Types Packs/Day Years [...] MD [facility] [address] [place] [address] (Wo rk) 05/28/2022 Laboratory Appointment Lab 05/28/2022 Office Visit Cardiology Zulma Dolan MD [facility] [place] [address] Liz Poole PA [facility] [place] [address] 06/10/2022 Office Visit Dermatology Laura Scherer MD [facility] DR [address] [place], [place] [address] (Wo rk) documented as of this encounter Results (ABNORMAL) Basic Metabolic Panel (non-fasting) (01/30/2022 7:19 AM EDT) athologist Signature Glucose Lvl 237 (H) 65 - 199 [facility] mg/dL [facility] Comment: [...] City/State/ZIP [place] [address] documented in this encounter Visit Diagnoses Diagnosis ASCVD (arteriosclerotic cardiovascular d isease) Unspecified cardiovascular disease documented in this encounter Care Teams Aerosol Line Operator Relationship Specialty Start Date End Date Lovely Vicente MD PCP - General 04/16/[address] [place] [address] documented as of this encounter
--- OUTSIDE RECORDS SUMMARY | 2022-04-27 08:11 | XMS_ITS | Encounter Summary ---
:1945 Author Organization [facility] [place] [address] Care Team Providers Name Role Phone Lovely Vicente MD Primary Care Provider Encounter Details Date Type Department Care Team Description 02/24/2022 Notes Only [place] [address] Social History Tobacco Use Types Packs/Day [...] return to the Medication Assistance Program. The [facility] office will follow up with the patient in 5 business days to see if the patient has received the application and if they have any questions. documented in this encounter Plan of Treatment Upcoming Encounters Date Type Specialty Care Team Description 05/28/2022 Appointment Cardiology Zulma Dolan MD [facility] [address] [place], [place] [address] (Wo rk) 05/28/2022 Laboratory Appointment Lab 05/28/2022 Office Visit Cardiology Zulma Dolan MD [facility] [address] Liz Poole PA [facility] [place] [address] 06/10/2022 Office Visit Dermatology Laura Scherer MD [facility] ER DR [address] [place], [place] [address] (Wo rk) documented as of this encounter Visit Diagnoses Not on filedocumented in this encounter Care Teams Civil Engineering Intern Relationship Specialty Start Date End Date Lovely Vicente MD PCP - General 04/16/[address] [place] [address] documented as of this encounter
--- OUTSIDE RECORDS SUMMARY | 2022-04-27 08:11 | XMS_ITS | Encounter Summary ---
:1945 Author Organization [facility] Address [facility] [place] [address] Care Team Providers Name Role Phone Lovely Vicente MD Primary Care Provider Reason for Visit Reason Onset Date Comments Medication Refill 04/09/2022 Jardiance Encounter Details Date Type Department Care Team Description 04/09/2022 Refill Cardiology at [facility] Liz Poole PA Medication Refill [facility] (Ja rdiance) [place] [address] Cardiology Dept [phone] [place], [place] [address] (Wo rk) Social History Tobacco [...] [facility] er [address] [place] [address] (Wo rk) 05/28/2022 Laboratory Appointment Lab 05/28/2022 Office Visit Cardiology Zulma Dolan MD [facility] [place] [address] Liz Poole PA [facility] [place] [address] 06/10/2022 Office Visit Dermatology Laura Scherer MD [facility] ER DR [address] [place], [place] [address] (Wo rk) documented as of this encounter Visit Diagnoses Diagnosis Chronic systolic heart failure documented in this encounter Care Teams Tool And Fixture Repairer Relationship Specialty Start Date End Date Lovely Vicente MD PCP - General 04/16/[address] [place] [address] documented as of this encounter
--- OUTSIDE RECORDS SUMMARY | 2022-04-27 08:11 | XMS_ITS | Encounter Summary ---
:1945 [place] [address] Care Team Providers Name Role Phone Lovely Vicente MD Primary Care Provider Reason for Visit Reason Onset Date Comments Follow-up 03/06/2022 Dave Bueno Encounter Details Date Type Department Care Team Description 03/06/2022 Telephone Cardiology at [facility] Martha Comer, Follow-up ([facility] Start) [place] [address] Social History Tobacco Use Types Packs/Day [...] pt had gotten his labs done at [facility] yesterday. Results received, scanned and [...] MD [facility] [place], [place] [address] (Wo rk) 05/28/2022 Laboratory Appointment Lab 05/28/2022 Office Visit Cardiology Zulma Dolan MD [facility] [place] [address] Liz Poole PA [facility] [place] [address] 06/10/2022 Office Visit Dermatology Laura Scherer MD [facility] DR [address] [place], [place] [address] (Wo rk) documented as of [...] filedocumented in this encounter Care Teams Technology Intern Relationship Specialty Start Date End Date Lovely Vicente MD PCP - General 04/16/[address] [place] [address] documented as of this encounter
--- OUTSIDE RECORDS SUMMARY | 2022-04-27 08:11 | XMS_ITS | Encounter Summary ---
:1945 Author Organization [facility] [place] [address] Care Team Providers Name Role Phone Lovely Vicente MD Primary Care Provider Reason for Visit Reason Onset Date Comments Follow-up 02/23/2022 Medication adjustmen t and new med Encounter Details Date Type Department Care Team Description 02/23/2022 Telephone Cardiology at [facility] Martha Comer, [facility] ([facility] RN adjustbrandon t and new med) [place] [phone] Social History Tobacco Use Types Packs/Day [...] the order for BMP and sent to [facility]. will call [facility] to make an appointment for next [...] tablet) daily. She will correct his pill conference planner to the new dose. Will need to check with STEPHANIE Poole about repeat BMP to recheck K+ level. If yes he will get the test done at [facility]. They are aware that he will need to make an appt at [facility] to get the test done. Entresto: [...] if he qualifies for assistance from the [employer]. She is thankful for the assistance, as he is taking insulin that is very expensive too. Instructed to call this marine underwriter, if he does qualify for assistance from [employer] and that he has gotten the medication [...] Zulma Dolan MD [facility] [place], [place] [address] (Wo rk) 05/28/2022 Laboratory Appointment Lab 05/28/2022 Office Visit Cardiology Zulma Dolan MD [facility] [place] [address] Liz Poole PA [facility] [place] [address] 06/10/2022 Office Visit Dermatology Laura Scherer MD [facility] DR [address] [place], [place] [address] (Wo rk) documented as of this encounter Visit Diagnoses Not on filedocumented in this encounter Care Teams Skidder Operator Relationship Specialty Start Date End Date Lovely Vicente MD PCP - General 04/16/[address] [place] [address] documented as of this encounter
--- OUTSIDE RECORDS SUMMARY | 2022-04-27 08:11 | XMS_ITS | Encounter Summary ---
:1945 Author Organization [facility] [place] [address] Care Team Providers Name Role Phone Lovely Vicente MD Primary Care Provider Encounter Details Date Type Department Care Team Description 02/24/2022 Orders Only Cardiology at [facility] Liz Poole, Chronic systolic heart [facility] [place] [address] Cardiology Dept [place], [place] [address] Social History Tobacco Use Types [...] MD [facility] er [place], [place] [address] (Wo rk) 05/28/2022 Laboratory Appointment Lab 05/28/2022 Office Visit Cardiology Zulma Dolan MD [facility] [place] [address] Liz Poole PA [facility] [place] [address] 06/10/2022 Office Visit Dermatology Laura Scherer MD [facility] ER DR TEJA GR[address]MAT [place], [place] [address] (Wo rk) documented as of this encounter Visit Diagnoses Diagnosis Chronic systolic heart failure documented in this encounter Care Teams Delivery Table Operator Relationship Specialty Start Date End Date Lovely Vicente MD PCP - General 04/16/[address] [place] [address] documented as of this encounter
--- OUTSIDE RECORDS SUMMARY | 2022-04-27 08:11 | XMS_ITS | Encounter Summary ---
:1945 Author Organization [facility] [place] [address] Care Team Providers Name Role Phone Lovely Vicente MD Primary Care Provider Encounter Details Date Type Department Care Team Description 02/19/2022 Laboratory Appointment Lab 3L [facility] [place] [id number] Social History Tobacco Use Types Packs/Day Years [...] Dolan MD [facility] er [place], [place] [address] (Wo rk) 05/28/2022 Laboratory Appointment Lab 05/28/2022 Office Visit Cardiology Zulma Dolan MD [facility] [place] [address] Liz Poole PA [facility] [place] [address] 06/10/2022 Office Visit Dermatology Laura Scherer MD [facility] DR TEJA GR[place] [address] (Wo rk) documented as of this encounter [...] (ABNORMAL) Differential, Automated (02/19/2022 8:06 AM EDT) [facility] gist Method Time Signature Neutrophils % 76.0 % [facility] Neutr Abs (ANC) 5.49 1.70 - [facility] 6.10 [facility] x10(3)/[facility] LABORATORY Lymphocytes % 10.8 % [facility] Lymphocytes Abs 0.8 (L) 0.9 - 3.2 [facility] x10(3)/[facility] LABORATORY Monocytes % 10.2 % [facility] Monocyte Abs 0.7 0.3 - 0.9 [facility] x10(3)/[facility] LABORATORY Eosinophils % 1.2 % [facility] Eosinophils Abs 0.1 0.0 - 0.4 [facility] x10(3)/[facility] LABORATORY Basophils % 0.8 % [facility] Basophils Abs 0.1 0.0 - 0.1 [facility] x10(3)/[facility] LABORATORY Immature Gran [...] Organization Address City/State/[place] [address] (ABNORMAL) Hemogram (02/19/2022 8:06 AM EDT) Analysis Performed At Patho logist Time Signature WBC 7.2 4.0 - 9.5 [facility] x10(3)/[facility] LABORATORY RBC 4.41 (L) 4.58 - [facility] 5.54 [facility] x10(6)/[facility] LABORATORY Hemoglobin 13.2 (L) 13.7 - [facility] 16[facility] g/dL [facility] Hematocrit 40.9 40.5 - [facility] 48.5 % [facility] MCV 92.7 82.9 - [facility] 93.1 [facility] LABORATORY MCH 29.9 27.5 - [facility] 32.1 pg [facility] MCHC 32.3 32.0 - [facility] 35.7 g/dL [facility] Platelets 191 145 - 357 [facility] x10(3)/[facility] LABORATORY RDWSD 53.6 (H) 36.0 - [facility] 45.0 [facility] LABORATORY RDWCV 15.6 (H) 11.4 - [facility] 13.8 % [facility] LABORATORY MPV 8.7 7.6 - 12.9 [facility] LABORATORY nRBC % Auto 0.0 % [facility] nRBC Abs Auto 0.000 0.000 - [facility] 0.000 [facility] x10(3)/[facility] LABORATORY Specimen Anatomical Collection Method Collection Time Receive d Time (Source) Location / / Volume Laterality Blood 02/19/2022 8:06 AM 2 8:09 EDT AM EDT Resulting Agency Comment Spec In Lab Liz BROWN HEMATOLOGY ORDERABLES Performing Organization Address City/[facility]/[place] [address] (ABNORMAL) pro-Brain Natriuretic Peptide [...] Organization Address City/State/[place] [address] (ABNORMAL) Basic Metabolic Panel (non-fasting) (02/19/2022 8:06 AM EDT) P athologist Signature Glucose Lvl 139 65 - 199 [facility] mg/dL [facility] LABORATORY [...] Organization Address City/State/[place] [address] documented in this encounter Visit Diagnoses Diagnosis Chronic systolic heart failure documented in this encounter Care Teams Belting And Webbing Inspector Relationship Specialty Start Date End Date Lovely Vicente MD PCP - General 04/16/[address] [place] [address] documented as of this encounter
--- OUTSIDE RECORDS SUMMARY | 2022-04-27 08:11 | XMS_ITS | Encounter Summary ---
:1945 Author Organization [place] [address] Care Team Providers Name Role Phone Lovely Vicente MD Primary Care Provider Reason for Referral Diagnostic Test (Routine) - New Request Specialty Diagnoses / Procedures Referred By Contact Refer red To Contact Cardiology Diagnoses Chronic systolic heart failure Liz Carrera PA [facility] Non-Inv Card Lab Procedures Echocardiogram Transthoracic [facility] [place] [address] [place] [address] Fax: Referral ID Status Reason Start Expiration Visits Visits Date Date Requested Authorized [id number] New Request Specialty 02/19/2022 02/19/2023 1 1 Service Requested Encounter Details Date Type Department Care Team Description 02/19/2022 Office Visit Cardiology at [facility] Liz Carrera, Chronic systolic heart [facility] [place] [address] Cardiology Dept [phone] [place], [place] [address] Social History Tobacco Use Types [...] per DC Summary - Admitted to [facility] on 12/08/21, transferred from [facility], respiratory distress with hypoxia 86% on RA. [...] mg PO daily in place of Lasix. [place] is new for him and he [...] (DAPT) Recommendations above ? TTE from [facility] 12/08/21 ?? 07/28/2019 Echocardiogram: SUMMARY: 1. The [...] regurgitation present. 07/07/2019 - 07/21/2019 Zio Patch Methods Analyst Data Processing The patient had a minimum heart rate [...] 12.5 mg daily 6. Post-op atrial fibrillation [id number] (CHF, HTN, DM, vascular disease, thromboembolism) [...] Cardiology Zulma Dolan MD [facility] [place], [place] [address] (Wo rk) 05/28/2022 Laboratory Appointment Lab 05/28/2022 Office Visit Cardiology Zulma Dolan MD [place] [address] Liz Carrera PA [facility] [place] [address] 06/10/2022 Office Visit Dermatology Laura Scherer MD [facility] DR TEJA GR[address] [facility] [place] [address] (Wo rk) Scheduled Orders Name Type Priority Associated Order Schedule Diagnoses Echocardiogram Echocardiography Routine Chronic systolic Expec vlad: Transthoracic heart failure 05/22/2022 (Approximate), Expires: 11/21/2022 documented as of this encounter Results (ABNORMAL) Basic Metabolic Panel (non-fasting) (02/19/2022 8:06 AM EDT) P athologist Signature Glucose Lvl 139 65 - 199 [facility] mg/dL [facility] - [...] 107 mmol/L [facility] CO2 31 22 - 31 mmol/L [facility] [...] City/State/ZIP Code Phon e Number [place] [id number] [address] LAB[address]ORY [address] (ABNORMAL) pro-Brain Natriuretic Peptide (02/19/2022 8:06 AM EDT) P athologist Signature ProBNP 984 (H) <=449 pg/mL [facility] Specimen Anatomical Collection Method Collection Time Receive d Time (Source) Location / / Volume Laterality Blood 02/19/2022 8:06 AM 8:09 EDT AM EDT Resulting Agency Comment Spec In Lab Zulma Plunkett MD CHEMISTRY ORDERABLES Performing Organization Address City/[facility]/[place] [address] documented in this encounter Visit Diagnoses Diagnosis Chronic systolic heart failure documented in this encounter Care Teams Public Address System Installer Relationship Specialty Start Date End Date Lovely Vicente MD PCP - General 04/16/[address] [place] [address] documented as of this encounter
--- OUTSIDE RECORDS SUMMARY | 2022-04-27 08:11 | XMS_ITS | Encounter Summary ---
:1945 Author Organization [facility] Address [facility] [place] [address] Care Team Providers Name Role Phone Lovely Vicente MD Primary Care Provider Reason for Visit Auth/Cert Specialty Diagnoses / Procedures Referred By Contact Refer red To Contact Diagnoses ASCVD (arteriosclerotic cardiovascular disease) [I25.10] Vitaliy Nobles MD [facility] Procedures PRO PERC TRLUML CORONARY STENT W/ANGIO ONE ART/BRANCH CARDIAC CATHETERIZATION STENT PLACEMENT-SINGLE MAJOR CORONARY ARTERY OR BRANCH [facility] [place] [address] Referral ID Status Reason Start Date Expiration Date Visits Requ ested Visits Authorized [id number] 1 1 Encounter Details Date Type Department Care Team Description 01/30/2022 Hospital Encounter Short Stay Unit at Vitaliy oNbles, CVD (arteriosclerotic cardiovascular disease); Barbara Blue MD 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 Please follow up with your planning lead in the next 4-6 weeks. We have made a referral to cardiac rehab. Please see the attached instructions regarding care to your right wrist access site. AttachmentsThe following attachments cannot be sent through Care Everywhere. Coronary Angiogram: Post-op (Estonian)documented in this encounter Medications at Time of [...] Murray RN - 01/30/2022 4:54 PM EDT [facility] [...] had referred him to cardiac rehab at [facility] last month per HF team. He was waiting until this intervention before starting the program. Reviewed managing angina /use of sl nitroglycerin. Given parameters for home exercise. 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 We discussed short walks several times per day. Will send [facility] his discharge summary from this admission. The patient should be contacted by the Program within 1- 2 weeks from discharge. Brief Op Note - Vitaliy Nobles MD - 01/30/2022 10:19 AM EDT Images from the original note were not included. [facility] [place] [address] [address] CORONARY ANGIOGRAM AND PERCUTANEOUS CORONARY INTERVENTION REPORT Patient: Don Fatima : 1945 MR number: [id number] Date of Service: 01/30/2022 Processing Talc And Borate Supervisor: Vitaliy Nobles MD Fellow: KEYON Elizabeth [...] a long 2.0 x 26 mm HARDEEP [place] TUCKER stent and positioned it at the [...] using a 2.0 x 26 mm HAR[place]EP [place] TUCKER stent. This completes the revascularization ofall [...] Zulma Dolan MD [facility] er [place] [address] (Wo rk) 05/28/2022 Laboratory Appointment Lab 05/28/2022 Office Visit Cardiology Zulma Dolan MD [facility] [place] [address] Liz Poole PA [facility] [place] [address] 06/10/2022 Office Visit Dermatology Laura Scherer MD [facility] ER DR [address] [place], [place] [address] (Wo rk) Scheduled Orders Name [...] Abs (ANC) 3.96 1.70 - [facility] 6.10 [facility] x10(3)/[facility] LABORATORY Lymphocytes % 16.3 % [facility] LABORATORY Lymphocytes Abs 0.9 0.9 - 3.2 [facility] x10(3)/[facility] LABORATORY Monocytes % 10.0 % [facility] LABORATORY Monocyte Abs 0.6 0.3 - 0.9 [facility] x10(3)/[facility] LABORATORY Eosinophils % 0.5 % [facility] LABOR[facility]ORY Eosinophils Abs 0.0 0.0 - 0.4 [facility] x10(3)/[facility] LABORATORY Basophils % 0.5 % [facility] LABORATORY Basophils Abs 0.0 0.0 - 0.1 [facility] x10(3)/[facility] LABORATORY Immature Gran % 0.90 [...] Address City/State/Z[place] [address] (ABNORMAL) Hemogram (01/30/2022 2:12 PM EDT) Analysis Performed At Patho logist Time Signature WBC 5.5 4.0 - 9.5 [facility] x10(3)/[facility] LABORATORY RBC 4.30 (L) 4.58 - [facility] 5.54 [facility] x10(6)/[facility] LABORATORY Hemoglobin 12.7 (L) 13.7 - [facility] 16.5 g/dL [facility] Hematocrit 39.4 (L) 40.5 - [facility] 48.5 % [facility] MCV 91.6 82.9 - [facility] 93.1 [facility] LABORATORY MCH 29.5 27.5 - [facility] 32.1 pg [facility] MCHC 32.2 32.0 - [facility] 35.7 g/dL [facility] Platelets 172 145 - 357 [facility] x10(3)/[facility] LABORATORY RDWSD 54.5 (H) 36.0 - [facility] 45.0 [facility] LABORATORY RDWCV 16.4 (H) 11.4 - [facility] 13.8 % [facility] MPV 9.2 7.6 - 12.9 [facility] LABORATORY nRBC % Auto 0.0 % [facility] LABORATORY nRBC Abs Auto 0.000 0.000 - [facility] 0.000 [facility] x10(3)/[facility] LABORATORY Specimen Anatomical Collection Method Collection Time Receive d Time (Source) Location / / Volume Laterality Blood 01/30/2022 2:12 PM 2 2:37 EDT PM EDT Resulting Agency Comment Spec In Lab Eddi Elizabeth Jr., MD HEMATOLOGY ORDERABLES Performing Organization Address City/State/ZIP [place] [address] (ABNORMAL) Basic Metabolic Panel (non-fasting) (01/30/2022 2:12 PM EDT) P athologist Signature Glucose Lvl 163 65 - 199 [facility] mg/dL [facility] Comment: Diabetes: >=200 mg/dL plus symp toms BUN 30 (H) 10 - 20 mg/dL [facility] LABORATORY Creatinine 1.47 0.80 - 1.50 mg/dL [facility] LABORATORY Sodium 140 135 - [...] Address City/State/Z[place] [address] POCT Glucose (01/30/2022 1:41 PM EDT) athologist Signature POC Glucose 148 65 - 199 [facility] mg/dL [facility] Comment: Supplemental ranges: <140 mg/dL before meals <180 mg/dL all other times of the day Specimen Anatomical Collection Method Collection Time Receive d Time (Source) Location / / Volume Laterality Blood 01/30/2022 1:41 PM 1:41 EDT PM EDT Vitaliy Sandra Nobles MD POINT OF CARE TEST ORDERABLE S Performing Organization Address City/[facility]/ZIP Code Phon e Number [address] POCT Glucose (01/30/2022 10:48 AM EDT) P athologist Signature POC Glucose 193 65 - 199 [facility] mg/dL [facility] Comment: Supplemental ranges: <140 mg/dL before meals <180 mg/dL all other times of the day Specimen Anatomical Collection Method Collection Time Receive d Time (Source) Location / / Volume Laterality Blood 01/30/2022 10:48 01/30/2022 AM EDT 10:48 AM EDT Vitaliy Sandra Nobles MD POINT OF CARE TEST ORDERABLE S Performing Organization Address [facility] [place] [address] EKG 12 Lead (01/30/2022 10:33 AM EDT) Component Value Ref Range Test Analysis Performed Pathologis t Method Time At Signature Ventricular rate 64 BPM MUSE SYSTEM Atrial Rate 64 BPM MUSE SYSTEM P-R Interval 162 ms MUSE SYSTEM QRS Duration 94 ms MUSE SYSTEM Q-T Interval 422 ms MUSE SYSTEM QTC Calculated 435 ms MUSE SYSTEM (Bezet) Calculated P [place] 41 degrees MUSE SYSTEM Calculated R [place] -27 degrees MUSE SYSTEM Calculated T [place] 104 degrees MUSE SYSTEM INTERPRETATION Normal sinus rhythm MUSE SYSTEM Anterolateral infarct (cited on or before 09-DEC-2021) Abnormal ECG When compared with ECG of 10-DEC-2021 11:17, No significant change was found Confirmed by Gary Perez ([id number]) on 01/30/2022 5:57:5 2 PM Specimen Anatomical Collection Method Collection Time Receive d Time (Source) Location / / Volume Laterality 01/30/2022 10:33 01/30/2022 5:57 AM EDT PM EDT Vitaliy Sandra Nobles MD ECG ORDERABLES Performing Organization Address City/[facility]/ZIP Code Phon e Number MUSE SYSTEM CARDIAC CATHETERIZATION (01/30/2022 10:16 AM EDT) Anatomical Region Laterality Modality Other Specimen (Source) Anatomical Location Collection Method / Collectio n Time Received Time / Laterality Volume Narrative 01/30/2022 2:09 PM EDT ?[facility] ? Cardiac Cathete rization/Intervention Report ? Patient Name: Don Fatima. ? Procedure Date: 01/30/2022 ? A #: [id number] ? Primary Physician: Nobles, Vitaliy P ? Case #: [id number] ? File Name: [id number] ? Catheterization Order Number: [id number] ? [facility] ? Final Report [place], [place] ? Patient Name: ? Don Mccollum. Stewa rt ? ID#: ?[id number] ? : ?1945 ? Procedure Date: ? [...] ?designated as ASA Class III. Th e [facility] clinical frailty scale is 5: [...] Urgent. The indication for ?the computer lab para professional visit is stable kn own CAD. Chest pain symptom assessment ?was: Typical Angina. ? Technique: ?A 6 SLFr sheath was inserted in the right radial artery utilizing the ?Seldinger technique. The right coronary artery was injected utilizing a ?IR 2.0 catheter. Coronary stent insertion was performed and the equipment ?utilized will be described in [facility] intervention summary section. 9,000 ?units of [...] guiding catheter an d a 3.5 Fr [facility] [address] ??20 Mhz ?using Manual pullback. [...] A premounted 2.00 x 26 mm Hard[place]ep [place] (TUCKER) ? was deployed wi a maximum [...] Wedelivered along 2.0 x 26 mm HARDEEP [place] ? TUCKER stent and p ositioned it [...] dose administered prior to arrival in the computer lab para professional. ?Recommended anti-platelet/anti- thrombotic regimen: ?Continue aspirin 81 [...] ?modification of this regimen. C onsult [facility] Interventional Cardiology for ?questions. ?The 1 year [...] using a 2.0 x 26 mm HARDEEP [place] TUCKER stent. ?This completes the revasculariz ation [...] Note Vitaliy Nobles MD - 03/06/2022 [facility] Cardiac Catheterization/Intervention Re port Patient Name: Don Fatima Procedure Date: 01/30/2022 A #: [id number] Primary Physician: Vitaliy Nobles Case #: [id number] File Name: [id number] Catheterization Order Number: [id number] [facility] Final Report [place], [place] Patient [...] Urgent. The indication for the computer lab para professional visit is stable known CAD. Chest pain [...] 1.5 guiding catheter and a 3.5 Fr [facility] [address] 20 Mhz using Manual pullback. [...] atmospheres. A premounted 2.00 x 26 mm [place] (TUCKER) was deployed with a maximum inflation [...] along 2. 0 x 26 mm HARDEEP [place] TUCKER stent and positioned it at the [...] administered prior t o arrival in the computer lab para professional. Recommended anti-platelet/anti-thrombot ic regimen: Continue aspirin 81 [...] of this regimen. Consult [facility] [...] using a 2.0 x 26 mm HARDEEP [place] TUCKER stent. This completes the revascularization of [...] - 199 [facility]/dL [facility] Comment: Supplemental ranges: <140 mg/dL before meals <180 mg/dL all other times of the day Specimen Anatomical Collection Method Collection Time Receive d Time (Source) Location / / Volume Laterality Blood 01/30/2022 9:04 AM 2 9:04 EDT AM EDT Vitaliy Nobles MD POINT OF CARE TEST ORDERABLE S Performing Organization Address City/State/[place] [address] (ABNORMAL) POCT Glucose (01/30/2022 8:10 AM EDT) athologist Signature POC Glucose 224 (H) 65 - 199 [facility] mg/dL [facility] Comment: Supplemental ranges: <140 mg/dL before meals <180 mg/dL all other times of the day Specimen Anatomical Collection Method Collection Time Receive d Time (Source) Location / / Volume Laterality Blood 01/30/2022 8:10 AM 2 8:10 EDT AM EDT Vitaliy Nobles MD POINT OF CARE TEST ORDERABLE S Performing Organization Address City/State/[place] [address] documented in this encounter Visit Diagnoses Diagnosis ASCVD (arteriosclerotic cardiovascular d isease) Unspecified cardiovascular disease 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 ASHD (arteriosclerotic heart disease) Coronary atherosclerosis of unspecified type of vessel, ambler or graft ASCVD (arteriosclerotic cardiovascular d isease) Unspecified cardiovascular disease documented in this encounter Admitting Diagnoses Diagnosis CAD (coronary artery disease) Coronary atherosclerosis of unspecified type of vessel, ambler or graft documented in this encounter Administered [...] Procedure), Routine niCARdipine (Cardene) (100 mcg/mL) dilution (COOLING ROOM ATTENDANT) (CANCELED ) 0927 (Given - Provider: Vitaliy [...] (Intra-Procedure) documented in this encounter Care Teams Command Post Craftsman Relationship Specialty Start Date End Date Lovely Vicente MD PCP - General 04/16/[address] [place] [address] documented as of this encounter
--- OUTSIDE RECORDS SUMMARY | 2022-04-27 08:11 | XMS_ITS | Encounter Summary ---
:1945 Author Organization [facility] [place] [address] Care Team Providers Name Role Phone Lovely Vicente MD Primary Care Provider Encounter Details Date Type Department Care Team Description 12/24/2021 Telephone Public Health at [facility] [place] [address] Social History Tobacco Use Types Packs/Day [...] Dolan MD [facility] [address] [place], [place] [address] (Wo rk) 05/28/2022 Laboratory Appointment Lab 05/28/2022 Office Visit Cardiology Zulma Dolan MD [facility] [place] [address] Liz Poole PA [facility] [place] [address] 06/10/2022 Office Visit Dermatology Laura Scherer MD [facility] ER [address] [place], [place] [address] (Wo rk) documented as of this encounter Visit Diagnoses Not on filedocumented in this encounter Care Teams Senior Operations Analyst Relationship Specialty Start Date End Date Lovely Vicente MD PCP - General 04/16/[address] [place] [address] documented as of this encounter
--- OUTSIDE RECORDS SUMMARY | 2022-04-27 08:11 | XMS_ITS | Encounter Summary ---
:1945 Author Organization [facility] [place] [address] Care Team Providers Name Role Phone Lovely Vicente MD Primary Care Provider Encounter Details Date Type Department Care Team Description 02/23/2022 [place] [facility] [place] Poole PA [facility] [place] [address] Cardiology Dept [phone] [place], [place] [address] (Wo rk) Social History Tobacco [...] Oneill RPH Transfer of Services Don Fatima [address] [place] [address] [place] [address] Telephone Information: Work Phone Not on file. The [facility] has received a prescription for Entresto for patient Mr. Don Fatima 76 y.o. (1945). The patient requests the prescription to be filled with [facility]. We spoke to patient to notify of this change and to provide number to reach the new filling pharmacy. A copyof patient's medication profile was offered to the accepting pharmacy. Additional instructions provided to patient about transfer: no The patient has been advised to call the [facility] at [phone] with any questionsor concerns on this referral. Thank you, Oxana Oneill RPH 02/23/22 4:26 PM Patient understands no changes to current drug regimen were made at this time. documented in this encounter Plan of Treatment Upcoming Encounters Date Type Specialty Care Team Description 05/28/2022 Appointment Cardiology Zulma Dolan MD [facility] [place], [place] [address] (Wo rk) 05/28/2022 Laboratory Appointment Lab 05/28/2022 Office Visit Cardiology Zulma Dolan MD [facility] [place] [address] [facility] [place] [address] 06/10/2022 Office Visit Dermatology Laura Scherer MD [facility] [address] [place], [place] [address] (Wo rk) documented as of this encounter Visit Diagnoses Not on filedocumented in this encounter Care Teams Trencher Driver Relationship Specialty Start Date End Date Lovely Vicente MD PCP - General 04/16/[address] [place] [address] documented as of this encounter
--- OUTSIDE RECORDS SUMMARY | 2022-04-27 08:11 | XMS_ITS | Encounter Summary ---
:1945 Author Organization [facility] [place] [address] Care Team Providers Name Role Phone Lovely Vicente MD Primary Care Provider Encounter Details Date Type Department Care Team Description 12/24/2021 Orders Only Client Services Account Manager Zulma Finch ASCVD (art eriosclerotic [facility] [place] cardiovascular disease) [facility] [place] [address] [place], [place] [phone] (Work) [phone] Social History Tobacco Use Types Packs/Day Years [...] Dolan MD [facility] [address] [place] [address] (Wo rk) 05/28/2022 Laboratory Appointment Lab 05/28/2022 Office Visit Cardiology Zulma Dolan MD [facility] [place] [address] Liz Poole PA [facility] [place] [address] 06/10/2022 Office Visit Dermatology Laura Scherer MD [facility] DR [address] [place], [place] [address] (Wo rk) documented as of this encounter Visit Diagnoses Diagnosis ASCVD (arteriosclerotic cardiovascular d isease) Unspecified cardiovascular disease documented in this encounter Care Teams Digital Asset Specialist Relationship Specialty Start Date End Date Lovely Vicente MD PCP - General 04/16/[address] [place] [address] documented as of this encounter
--- OUTSIDE RECORDS SUMMARY | 2022-04-27 08:12 | XMS_ITS | Encounter Summary ---
:1945 Author Organization [facility] [place] [address] Care Team Providers Name Role Phone Lovely Vicente MD Primary Care Provider Encounter Details Date Type Department Care Team Description 12/12/2021 Telephone Cardiology at [facility] [place] [address] Social History Tobacco Use Types Packs/Day [...] - 12/12/2021 11:36 AM EDT RTC to [facility] regarding pharmacists questions as to whether [...] MD [facility] [address] [place] [address] (Wo rk) 05/28/2022 Laboratory Appointment Lab 05/28/2022 Office Visit Cardiology Zulma Dolan MD [facility] [place] [address] Liz Poole PA [facility] [place] [address] 06/10/2022 Office Visit Dermatology Laura Scherer MD [facility] [address] [place], [place] [address] (Wo rk) documented as of this encounter Visit Diagnoses Not on filedocumented in this encounter Care Teams Founder & Ceo Relationship Specialty Start Date End Date Lovely Vicente MD PCP - General 04/16/[address] [place] [address] documented as of this encounter
--- OUTSIDE RECORDS SUMMARY | 2022-04-27 08:12 | XMS_ITS | Encounter Summary ---
:1945 Author Organization [facility] [place] [address] Care Team Providers Name Role Phone Lovely Vicente MD Primary Care Provider Encounter Details Date Type Department Care Team Description 12/15/2021 Telephone Cardiology [place] [facility] [place] Barbara Mera, [place] [address] Social History Tobacco Use Types Packs/Day [...] Zulma Dolan MD [facility] [place], [place] [address] (Wo rk) 05/28/2022 Laboratory Appointment Lab 05/28/2022 Office Visit Cardiology Zulma Dolan MD [facility] [place] [address] Liz Poole PA [facility] [place] [address] 06/10/2022 Office Visit Dermatology Laura Scherer MD [facility] [address] [place], [place] [address] (Wo rk) documented as of this encounter Visit Diagnoses Not on filedocumented in this encounter Care Teams Director Food And Beverage Relationship Specialty Start Date End Date Lovely Vicente MD PCP - General 04/16/15 [facility] [address] [place] [address] documented as of this encounter
--- OUTSIDE RECORDS SUMMARY | 2022-04-27 08:12 | XMS_ITS | Encounter Summary ---
:1945 Author Organization [facility] [place] [address] Care Team Providers Name Role Phone Lovely Vicente MD Primary Care Provider Reason for Visit Reason Onset Date Comments Medication Refill 12/12/2021 Torsemide Encounter Details Date Type Department Care Team Description 12/12/2021 Refill Cardiology at [facility] Janneth Padilla, Medication Refill [facility] STEPHANIE (Torsemide) [place] [address] CARDIOLOGY DEPT. [place], [place] [address] (Wo rk) Social History Tobacco [...] Dolan MD [facility] er Dr [place], [place] [address] (Wo rk) 05/28/2022 Laboratory Appointment Lab 05/28/2022 Office Visit Cardiology Zulma Dolan MD [facility] [place] [address] Liz Poole PA [facility] [place] [address] 06/10/2022 Office Visit Dermatology Laura Scherer MD [facility] ER [address] [place], [place] [address] (Wo rk) documented as of this encounter Visit Diagnoses Diagnosis Chronic systolic heart failure documented in this encounter Care Teams Extruding Press Operator Relationship Specialty Start Date End Date Lovely Vicente MD PCP - General 04/16/[address] [place] [address] documented as of this encounter
--- OUTSIDE RECORDS SUMMARY | 2022-04-27 08:12 | XMS_ITS | Encounter Summary ---
:1945 Author Organization [facility] [place] [address] Care Team Providers Name Role Phone Lovely Vicente MD Primary Care Provider Reason for Referral Consultation (Routine) - Closed Specialty Diagnoses / Referred By Contact Referred To Contact Procedures Cardiac Rehabilitation Diagnoses Acute HFrEF (heart failure with reduced ejection fraction) Janneth Padilla, Cardiac Rehab, [address] [place] CARDIOLOGY DEPT. [address] [place] [address] Referral ID Status Reason Start Date Expiration Date Visits V isits Requested Authorized [id number] Closed Consult, 12/12/2021 12/12/2022 36 36 Test & Treat Reason for Visit Auth/Cert Specialty Diagnoses / Procedures Referred By Contact Refer red To Contact Diagnoses NSTEMI Procedures emerg ipi Referral ID Status Reason Start Date Expiration Date Visits Requ ested Visits Authorized [id number] 1 1 Encounter Details Date Type Department Care Team Description 12/08/2021 - Hospital Encounter Intermediate Cardiac Iker Cuevas MD [facility] [place] [address] Non-ST elevation myocardial infarction ( NSTEMI); 12/12/2021 Care Unit Ifeanyi Rene MD [facility] [place] [address] ST elevation myocardial infarction (STEM I), unspecified artery; [facility] Acute HFr EF (heart failure with reduced ejection fraction) [place] [address] Social History Tobacco Use Types Packs/Day Years [...] Don Fatima Patient Age: 76 y.o. Language: Sami Race: White Ethnicity: Not nor Admit date: [...] Peter PA-C Kelly LaFlamme PA-C Cardiovascular Medicine [phone] Discharge Diagnoses (Hospital Problems) and Secondary Diagnoses [...] 3.75 guiding catheter and a 3.5 Fr Ione Eye Wiyot 20 Mhz using Manual pullback. Imaging was successful. Image quality was good. The ostial LCX showed moderate diffuse atherosclerotic plaque with scattered three quadrant calcification. Measurements were performed after pre-dilation. Post Intervention: The stent was well expanded and apposed. Intravascular Ultrasound was performed in the distal LM using a 7 Fr EBU 3.75 guiding catheter and a 3.5 Fr Ione Eye Wiyot 20 Mhz using Manual pullback. Imaging was [...] congestion and cardiomegaly. ?? TTE from [facility] 12/08/21 ? Prior Cardiac Studies: TTE 07/28/2019 [...] thyroidectomy in 2012 who presented to [facility] with 1 week progressing breathlessness with patient [...] with Liz Poole PA-C. ?? At [facility], respiratory distress with hypoxia 86% on room [...] mg PO daily in place of lasix. [place] is new for him and he will have a BMP checked on 12/[address] Cuevas spoke with the patient's and told her that him drinking too much water and diet drinks did not cause his TX. This is what his thought was the [...] insulin management. Continued on Lantus nightly with MIIL and SSI with dosing per DM team. [...] appointments: During 8am-5pm Wednesday through Wednesday call [phone] to speak with a nurse in the cardiology clinic All other times call [phone] and ask to speak to the shellfish dredge operator recreation attendant supervisor. Return to work: One week Driving: No driving for 48 hours after catheterization. Follow up Appointments: PCP Lovely Vicente MD [phone] to see patient at the end of December for annual check up. Patient to see Dr. Lorenzana at 1120 am at December 19 for a post hospital check up. Atomic Physics Teacher Dr. De Oliveira to see you in [facility]. Left a message for office to set a date and time. Please call [phone] Nobles to see the patient for a same day cath in 2-3 weeks from now. Office to call with a date and time. For questions please call [phone] Home oxygen therapy: N/A Arrangements for VNA/home care: none Future Appointments and Orders Future Orders Complete By Expires Basic Metabolic Panel (non-fasting) [LAB15 Custom] 12/19/2021 (Approximate) 12/12/2022 Process Instructions: INCLUDES: Calcium, BUN, Creat, GFR, Glucose, Lytes Scheduling Instructions: Comments: Questions: Referral to Cardiac Rehab [CUI167 Custom] As directed Process Instructions: If no [...] appointments: During 8am-5pm Wednesday through Wednesday call [phone] to speak with a nurse in the cardiology clinic All other times call [phone] and ask to speak to the shellfish dredge operator recreation attendant supervisor. Return to work: One week Driving: No driving for 48 hours after catheterization. Follow up Appointments: PCP Lovely Vicente MD [phone] to see patient at the end of December for annual check up. Patient to see Dr. Lorenzana at 1120 am at December 19 for a post hospital check up. Atomic Physics Teacher Dr. De Oliveira to see you in [facility]. Left a message for office to set a date and time. Please call [phone] Nobles to see the patient for a same day cath in 2-3 weeks from now. Office to call with a date and time. For questions please call [phone] Home oxygen therapy: N/A Arrangements for VNA/home [...] Progress Note Patient Name: Don Fatima Service: WHEEL SHOP SUPERVISOR / PA Responsible Attending: Ifeanyi Truong [...] was given Lasix 80mg IV x1 in biological lab technician. Tolerated procedure well. Home today [...] vascular congestion and cardiomegaly. TTE from [facility] 12/08/21 Prior Cardiac Studies: TTE 07/28/2019 SUMMARY: [...] with MD Janneth Neville PA 12/12/2021 Pager [phone] Associated attestation - Ifeanyi Truong MD - [...] [facility] Diabetes Management Pager [phone] 20 minutes of this 35 minute visit [...] Progress Note Patient Name: Don Fatima Service: WHEEL SHOP SUPERVISOR / PA Responsible Attending: Iker Cuevas [...] + trop. Known CAD with hx of TX and CABG. DM. MARIA VICTORIA.ICM. ??? ASHD [...] was given Lasix 80mg IV x1 in biological lab technician. Tolerated procedure well. Review of [...] vascular congestion and cardiomegaly. TTE from [facility] 12/08/21 Prior Cardiac Studies: TTE 07/28/2019 SUMMARY: [...] and answered his questions. Iker Cuevas MD [facility] Total time spent on review of records prior to visit, face to face time with patient during visit, documentation, and coordination of care with other clinicians: 25 minutes. . Iker Cuevas MD - 12/10/2021 12:30 PM EDT Images from the original note were not included. Inpatient Cardiology Progress Note Patient Name: Don Fatima Service: WHEEL SHOP SUPERVISOR / PA Responsible Attending: Iker Cuevas MD Reason for continued hospitalization: NSTEMI- s/p R/LHC- PCW 27, occluded SVGs s/p PCI to ostial LCX ADHF and hypoxia- IV diuresis Active Problems: Active Hospital Problems Diagnosis ??? Admitted with 2 days of sob, hypoxemia, and + trop. Known CAD with hx of TX and CABG. DM. MARIA VICTORIA.ICM. ??? ASHD [...] was given Lasix 80mg IV x1 in biological lab technician. Tolerated procedure well. Review of [...] ??? heparin (porcine) infusion 1,600 Units/hr (12/09/21 6893) PRN Meds:ipratropium-albuteroL, senna-docusate, bisacodyL, sodium chloride 0.9 [...] vascular congestion and cardiomegaly. TTE from [facility] 12/08/21 Prior Cardiac Studies: TTE 07/28/2019 SUMMARY: [...] Discussed with MD Migdalia Peter PA-C Pager #[phone] 12/10/2021 Cardiology Attending Note I have seen [...] updated and given pictures. Iker Cuevas MD [facility] Total time spent on review of records prior to visit, face to face time with patient during visit, documentation, and coordination of care with other clinicians: 35 minutes. Iker Cuevas MD - 12/09/2021 7:28 AM EDT Images from the original note were not included. Inpatient Cardiology Progress Note Patient Name: Don Fatima Service: WHEEL SHOP SUPERVISOR / PA Responsible Attending: Iker Cuevas MD Reason for continued hospitalization: NSTEMI- awaiting R/LHC ADHF and hypoxia- IV diuresis, R/LHC Active Problems: Active Hospital Problems Diagnosis ??? Admitted with 2 days of sob, hypoxemia, and + trop. Known CAD with hx of TX and CABG. DM. MARIA VICTORIA.ICM. ??? ASHD [...] ??? heparin (porcine) infusion 1,600 Units/hr (12/09/21 1388) PRN Meds:ipratropium-albuteroL, sodium chloride 0.9 % (flush), [...] vascular congestion and cardiomegaly. TTE from [facility] 12/08/21 Prior Cardiac Studies: TTE 07/28/2019 SUMMARY: [...] Discussed with MD Migdalia Peter PA-C Pager #[phone] 12/09/2021 Cardiology Attending Note I have seen and examined the patient. I agree with the findings above. Developed CHF early this am despite getting more iv lasix last evening. Feeling better now. INR > 2. Lungs still wet at base. Echo at [facility] showed EF 35% with mild mod MR slightly lower than last value here. -vit K 2.5 orally to facilitate correction of INR- this will take 12-24 hours to take effect -furosemide 80 mg iv now -postpone right and left heart cath until tomorrow given INR and ADHF -increase statin to achieve LDL < 70 -CPAP tonight Iker Cuevas MD [facility] Total time spent on review [...] included. Cardiology Admission H&P Patient Name: Don Ftaima Date of : 1945 Age: 76 y.o. Hospital Admit Date: 12/08/2021 Inpatient Attending: Iker Cuevas MD PCP: Lovely Vicente MD Presenting Diagnosis/Chief Complaint: Shortness of breath while lying Active Problem List: Active Hospital Problems Diagnosis ??? Admitted with 2 days of sob, hypoxemia, and + trop. Known CAD with hx of TX and CABG. DM. MARIA VICTORIA.ICM. ??? ASHD [...] thyroidectomy in 2012 who presented to [facility] with 1 week progressing breathlessness with patient [...] 03/2021 with Liz Poole PA-C. At [facility], respiratory distress with hypoxia 86% on room [...] [facility] ??? PRO AMPUTATION FOOT, TRANSMETATARSAL Right 08/09/2017 AMPUTATION, TRANSMETATARSAL (WRVU 12.71) performed by Yonathan Smith MD at [facility] [...] at [facility] ENDOSCOPY ??? PRO DRESSING CHANGE UNDER ANESTHESIA Right 08/11/2017 (MSURG) DRESSING CHANGE (FOR OTHER THAN IVAN) UNDER ANES. (WRVU 0.86) performed by Lamar Smith MD at [facility] OR ??? PRO ENDOSCOPY W/VIDEO-ASST VEIN HARVEST, CABG Right 07/07/2017 ENDOSCOPIC HARVEST VEIN(S) FOR CABG (WRVU 0.31) performed by Yuan Retana MD at [facility] OR ??? PRO THYROIDECTOMY 03/28/2013 THYROIDECTOMY, TOTAL OR COMPLETE performed by Manny Mcknight MD at [facility] MAIN OR Significant Family History: Family [...] 65 - 199 mg/dL Labs at [facility] 12/08/2021-troponin I 8004 (UN L <60), 12/07- [...] with MD Morgan Peter PA-C APP2 pager [phone] 12/08/2021 Cardiology Attending Note I have seen [...] is type 1 due to graft or council coronary stenosis vs acute injury from CHF. 3. PAF: currrently in NSR. Have replaced warfarin with heparin 4. PAD: stable 5. DM: stable 6. CKD: will monitor and minimize contrast. Pt very appreciative of Dr. Yuan Retana's care in 2018. Will let him know patient is here. Iker Cuevas MD [facility] documented in this encounter Miscellaneous [...] Type: *No Product type* / Secondary Insurance: [employer] [place] Prescription Coverage: Yes This plan was [...] cath without complications. Migdalia Parker PA-C Pager #[phone] 12/10/2021 Initial Assessments - Nick Georges RN [...] COVID test: Lab Results Component Value Date [id number] Not Detected 12/08/2021 Past medical History: Past [...] [facility] must abide by [place] law. The hierarchy [...] (i) The agent with financial power of attorney law clerk or a conservator appointed in accordance with [...] - standard, cane - straight Home Address: [address] [place] [address] [place] [address] Social & Family Supports: All names listed below confirmed with patient as current and correct Extended Emergency Contact Information Primary Emergency Contact: Kisha Fatima Address: [address] [place] [address] [place] [address] [facility] Mobile Relation: Spouse Secondary Emergency Contact: Elba Swenson Address: [address] [place] Relation: Child Current Care Provided [...] Type: *No Product type* / Secondary Insurance: [employer] [facility] Prescription Coverage: Yes Preferred Pharmacy: [facility] Home Delivery [facility] [address] [address] - [address] [address] [place] Status: Patient is a : unable to assess Primary Care Provider: Lovely Vicente MD [phone] Patient/Caregiver Goals of Treatment: Get out of here Potential Needs for Transition of Care: none Agency Referrals: none patient has used [facility] in the past Transportation: no concerns Transportation Anticipated: family or friend will provide Concerns to be Addressed: patient refuses services, discharge planning Assessment: Patient is [facility] to [facility] Service pager [phone] for 76 y.o.??male??with h/o??CAD s/p 3vCABG (THOMPSON-LAD, [...] status on current unit. Nick Georges RN envelope press operator, Office of Care Management Pager: [phone] Brief Op Note - Vitaliy Nobles MD - 12/10/2021 8:31 AM EDT Images from the original note were not included. [facility] 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 Diabetes History: Don Fatima has had diabetes for 10 years. He has been on insulin for the last several years andis managed by his PCP. Lives in [place], [place] with his . States that he [...] Hold] heparin (porcine) infusion 1,600 Units/hr (12/09/21 7238) PRN: [SEP Hold] ipratropium-albuteroL, [SEP Hold] senna-docusate, [...] 5 gm carb ratio for each meal) care home diabetes care: Medications - Outpatient treatment regimen recommendations pending based on the hospital course. Monitoring - continue BG tid ac & hs Diet - low fat/low carb diet Exercise - weight-bearing exercise 30 min/day, as tolerated Thank you for allowing us to provide care for your patient Desirae Shaper NUCLEAR TECHNICIAN Endocrinology Pager [phone] 70 minutes of this [...] + trop. Known CAD with hx of TX and CABG. DM. MARIA VICTORIA.ICM. ??? ASHD [...] to remain on Med/Surg floor, please page [phone] for any further questions or concerns. LANDON [...] for further details. STEPHANIE Rebolledo 12/08/2021 Pager [phone] documented in this encounter Plan of Treatment Upcoming Encounters Date Type Specialty Care Team Description 05/28/2022 Appointment Cardiology Zulma Dolan MD [facility] [place], [place] [address] (Wo rk) 05/28/2022 Laboratory Appointment Lab 05/28/2022 Office Visit Cardiology Zulma Dolan MD [facility] [place] [address] Liz Poole PA [facility] [place] [address] 06/10/2022 Office Visit Dermatology Laura Scherer MD [facility] [address] [place], [place] [address] (Wo rk) Scheduled Referrals Name [...] POC Glucose 215 (H) 65 - 199 [facility] mg/dL [facility] Comment: Supplemental ranges: <140 mg/dL before meals <180 mg/dL all other times of the day Specimen Anatomical Collection Method Collection Time Receive d Time (Source) Location / / Volume Laterality Blood 12/12/2021 7:42 AM 7:42 EDT AM EDT Ifeanyi Truong MD POINT OF CARE TEST ORDERABLE S Performing Organization Address City/State/[place] [address] (ABNORMAL) Differential, Automated (12/12/2021 4:51 AM EDT) athologist Signature Neutrophils % 75.4 % [facility] Neutr Abs (ANC) 5.95 1.70 - [facility] 6.10 [facility] x10(3)/[facility] LABORATORY Lymphocytes % 12.2 % [facility] Lymphocytes Abs 1.0 0.9 - 3.2 [facility] x10(3)/[facility] LABORATORY Monocytes % 9.5 % [facility] Monocyte Abs 0.8 0.3 - 0.9 [facility] x10(3)/[facility] LABORATORY Eosinophils % 1.8 % [facility] Eosinophils Abs 0.1 0.0 - 0.4 [facility] x10(3)/[facility] LABORATORY Basophils % 0.5 % [facility] Basophils Abs 0.0 0.0 - 0.1 [facility] x10(3)/[facility] LABORATORY Immature Gran % 0.60 % [...] Organization Address City/State/[place] [address] (ABNORMAL) Hemogram (12/12/2021 4:51 AM EDT) Analysis Performed At Patho logist Time Signature WBC 7.9 4.0 - 9.5 [facility] x10(3)/[facility] LABORATORY RBC 4.19 (L) 4.58 - [facility] 5.54 [facility] x10(6)/[facility] LABORATORY Hemoglobin 12.1 (L) 13.7 - [facility] 16.5 g/dL [facility] Hematocrit 36.7 (L) 40.5 - [facility] 48.5 % [facility] MCV 87.6 82.9 - [facility] 93.1 fL [facility] MCH 28.9 27.5 - [facility] 32.1 pg [facility] MCHC 33.0 32.0 - [facility] 35.7 g/dL [facility] Platelets 231 145 - 357 [facility] x10(3)/[facility] LABORATORY RDWSD 47.2 (H) 36.0 - [place] 45.0 [facility] LABORATORY RDWCV 14.6 (H) 11.4 - [facility] 13.8 % [facility] MPV 9.5 7.6 - 12.9 [facility] LABORATORY nRBC % Auto 0.0 % [facility] nRBC Abs Auto 0.000 0.000 - [facility] 0.000 [facility] x10(3)/[facility] LABORATORY Specimen Anatomical Collection Method Collection Time Receive d Time (Source) Location / / Volume Laterality Blood 12/12/2021 4:51 AM 2 5:06 EDT AM EDT Resulting Agency Comment Spec In Lab Bijan Sun MD HEMATOLOGY ORDERABLES Performing Organization Address City/[facility]/[place] [address] (ABNORMAL) Prothrombin Time (12/12/2021 4:51 AM EDT) P athologist Signature PT 14.9 (H) 9.4 - 12.5 [facility] LABORATORY INR 1.3 [facility] LABORATORY [...] City/[facility]/[place] [address] (ABNORMAL) BMP w/fasting Glucose (12/12/2021 4:51 AM EDT) athologist Signature Glucose 152 (H) 65 - 99 [facility] Fasting mg/dL [facility] Comment: ?Fasting* Glucose Interpretive [...] Creatinine 1.72 (H) 0.80 - 1.50 mg/dL [facility] [...] Organization Address City/State/[place] [address] Magnesium (12/12/2021 4:51 AM EDT) P athologist Signature Magnesium 1.02 0.69 - 1.07 [facility] mmol/L [facility] Specimen Anatomical Collection Method Collection Time Receive d Time (Source) Location / / Volume Laterality Blood 12/12/2021 4:51 AM 2 5:06 EDT AM EDT Resulting Agency Comment Spec In Lab Iker Cuevas MD CHEMISTRY ORDERABLES Performing Organization Address City/[facility]/[place] [address] POCT Glucose (12/12/2021 3:43 AM EDT) P athologist Signature POC Glucose 138 65 - 199 [facility] mg/dL [facility] Comment: Supplemental ranges: <140 mg/dL before meals <180 mg/dL all other times of the day Specimen Anatomical Collection Method Collection Time Receive d Time (Source) Location / / Volume Laterality Blood 12/12/2021 3:43 AM 2 3:43 EDT AM EDT Iker Cuevas MD POINT OF CARE TEST ORDERABLE S Performing Organization Address City/State/[place] [address] POCT Glucose (12/11/2021 11:44 PM EDT) athologist Signature POC Glucose 124 65 - 199 [facility] mg/dL [facility] Comment: Supplemental ranges: <140 mg/dL before meals <180 mg/dL all other times of the day Specimen Anatomical Collection Method Collection Time Receive d Time (Source) Location / / Volume Laterality Blood 12/11/2021 11:44 12/11/2021 PM EDT 11:44 PM EDT Iker Cuevas MD POINT OF CARE TEST ORDERABLE S Performing Organization Address City/[facility]/[place] [address] (ABNORMAL) POCT Glucose (12/11/2021 8:12 PM EDT) athologist Signature POC Glucose 200 (H) 65 - 199 [facility] mg/dL [facility] Comment: Supplemental ranges: <140 mg/dL before meals <180 mg/dL all other times of the day Specimen Anatomical Collection Method Collection Time Receive d Time (Source) Location / / Volume Laterality Blood 12/11/2021 8:12 PM 2 8:12 EDT PM EDT Iker Cuevas MD POINT OF CARE TEST ORDERABLE S Performing Organization Address City/[facility]/[place] [address] (ABNORMAL) POCT Glucose (12/11/2021 6:50 PM EDT) athologist Signature POC Glucose 245 (H) 65 - 199 [facility] mg/dL [facility] Comment: Supplemental ranges: <140 mg/dL before meals <180 mg/dL all other times of the day Specimen Anatomical Collection Method Collection Time Receive d Time (Source) Location / / Volume Laterality Blood 12/11/2021 6:50 PM 2 6:50 EDT PM EDT Iker Cuevas MD POINT OF CARE TEST ORDERABLE S Performing Organization Address City/State/[place] [address] (ABNORMAL) POCT Glucose (12/11/2021 4:00 PM EDT) P athologist Signature POC Glucose 383 (H) 65 - 199 [facility] mg/dL [facility] Comment: Supplemental ranges: <140 mg/dL before meals <180 mg/dL all other times of the day Specimen Anatomical Collection Method Collection Time Receive d Time (Source) Location / / Volume Laterality Blood 12/11/2021 4:00 PM 4:00 EDT PM EDT Iker Cuevas MD POINT OF CARE TEST ORDERABLE S Performing Organization Address City/[facility]/[place] [address] (ABNORMAL) POCT Glucose (12/11/2021 12:01 PM EDT) athologist Signature POC Glucose 342 (H) 65 - 199 [facility] mg/dL [facility] Comment: Supplemental ranges: <140 mg/dL before meals <180 mg/dL all other times of the day Specimen Anatomical Collection Method Collection Time Receive d Time (Source) Location / / Volume Laterality Blood 12/11/2021 12:01 12/11/2021 PM EDT 12:01 PM EDT Iker Cuevas MD POINT OF CARE TEST ORDERABLE S Performing Organization Address City/[facility]/[place] [address] COVID-19 PCR (12/11/2021 10:13 AM EDT) [facility] gist Method Time Signature SARS-CoV-2 Not Detected Not Detected BARBARA RNA [facility] Comment: This result should [...] diagnosis of COVID-19 is performed using the [employer] Dianna FRIEND S-CoV-2 Assay as authorized by the FDA Emergency Use Authorization (EUA). This EUA assay is intended for In-vitro Diagnostic (IVD) use with respiratory sp ecimens such as nasopharyngeal swabs collected from individuals during the ac bill moore's slough phase of infection. This assay is performed based on the instructions for use provided by [employer] and additional guidance provided by CDC [...] fact sheets at the following FDA website: https://www.fda.gov/medical-devices/sgyeutkdinu-tnhredz-7261-lapwu-15-rsojyhwfh- bim-afsmmrmjcbobmx-cwwdilf-devices/gsgrk-ftgyhpqezzd-zzsi SARS-Cov-2 RNA Source WHEEL SHOP SUPERVISOR Swab [facility] LABORATORY Specimen (Source) Anatomical Collection Method Collection Time Re ceived Time Location / / Volume Laterality Nasopharyngeal Swab 12/11/2021 10:13 05/03/2022 AM EDT 11:16 AM EDT Comment: Symptoms->Surveillance Resulting Agency Comment Spec In Lab Iker Cuevas MD MICROBIOLOGY - GENERAL ORDER ROBSON Performing Organization Address City/[facility] [place] [address] POCT Glucose (12/11/2021 7:34 AM EDT) athologist Signature POC Glucose 198 65 - 199 [facility]dL [facility] LABORATORY Comment: Supplemental ranges: <140 mg/dL before meals <180 mg/dL all other times of the day Specimen Anatomical Collection Method Collection Time Receive d Time (Source) Location / / Volume Laterality Blood 12/11/2021 7:34 AM 2 7:34 EDT AM EDT Iker Cuevas MD POINT OF CARE TEST ORDERABLE S Performing Organization Address City/[facility]/[place] [address] (ABNORMAL) POCT Glucose (12/11/2021 5:07 AM EDT) P athologist Signature POC Glucose 208 (H) 65 - 199 [facility] mg/dL [facility] LABORATORY Comment: Supplemental ranges: <140 mg/dL before meals <180 mg/dL all other times of the day Specimen Anatomical Collection Method Collection Time Receive d Time (Source) Location / / Volume Laterality Blood 12/11/2021 5:07 AM 2 5:07 EDT AM EDT Iker Cuevas MD POINT OF CARE TEST ORDERABLE S Performing Organization Address City/[facility]/[place] [address] (ABNORMAL) Differential, Automated (12/11/2021 4:28 AM EDT) [facility] Method Time Signature Neutrophils % 79.6 % [facility] LABORATORY Neutr Abs (ANC) 7.01 (H) 1.70 - [facility] 6.10 [facility] x10(3)/[facility] L LABORATORY Lymphocytes % 9.1 % [facility] LABORATORY Lymphocytes Abs 0.8 (L) 0.9 - 3.2 [facility] x10(3)/[facility] LABORATORY Monocytes % 9.2 % [facility] LABORATORY Monocyte Abs 0.8 0.3 - 0.9 [facility] x10(3)/[facility] LABORATORY Eosinophils % 1.3 % [facility] LABORATORY Eosinophils Abs 0.1 0.0 - 0.4 [facility] x10(3)/[facility] LABORATORY Basophils % 0.5 % [facility] LABORATORY Basophils Abs 0.0 0.0 - 0.1 [facility] x10(3)/[facility] [...] Melisa Gran Abs 0.03 0.00 - 0.04 x10(3)/[facility] LABORATORY Specimen Anatomical Collection Method Collection Time Receive d Time (Source) Location / / Volume Laterality Blood 12/11/2021 4:28 AM 4:37 EDT AM EDT Resulting Agency Comment Spec In Lab Bijan Sun MD HEMATOLOGY ORDERABLES Performing Organization Address City/[facility]/[place] [address] (ABNORMAL) Hemogram (12/11/2021 4:28 AM EDT) Analysis Performed At Patho logist Time Signature WBC 8.8 4.0 - 9.5 [facility] x10(3)/[facility] LABORATORY RBC 4.15 (L) 4.58 - [facility] 5.54 [facility] x10(6)/[facility] LABORATORY Hemoglobin 11.9 (L) 13.7 - [facility] 16.5 g/dL [facility] LABORATORY Hematocrit 36.9 (L) 40.5 - [facility] 48.5 % [facility] LABORATORY MCV 88.9 82.9 - [facility] 93.1 [facility] LABORATORY MCH 28.7 27.5 - [facility] 32.1 pg [facility] LABORATORY MCHC 32.2 32.0 - [facility] 35.7 g/dL [facility] LABORATORY Platelets 211 145 - 357 [facility] x10(3)/[facility] LABORATORY RDWSD 48.3 (H) 36.0 - [facility] 45.0 [facility] LABORATORY RDWCV 14.8 (H) 11.4 - [facility] 13.8 % [facility] LABORATORY MPV 9.6 7.6 - 12.9 [facility] LABORATORY nRBC % Auto 0.0 % [facility] LABORATORY nRBC Abs Auto 0.000 0.000 - [facility] 0.000 [facility] x10(3)/[facility] LABORATORY Specimen Anatomical Collection Method Collection Time Receive d Time (Source) Location / / Volume Laterality Blood 12/11/2021 4:28 AM 2 4:37 EDT AM EDT Resulting Agency Comment Spec In Lab Bijan Sun MD HEMATOLOGY ORDERABLES Performing Organization Address City/State/[place] [address] (ABNORMAL) Prothrombin Time (12/11/2021 4:28 AM EDT) P athologist Signature PT 17.7 (H) 9.4 - 12.5 [facility] LABORATORY INR 1.6 [facility] LABORATORY [...] Organization Address City/State/[place] [address] (ABNORMAL) BMP w/fasting Glucose (12/11/2021 4:28 AM EDT) athologist Signature Glucose 207 (H) 65 - 99 [facility] Fasting mg/dL [facility] LABORATORY Comment: ?Fasting* Glucose Interpretive [...] LABORATORY Creatinine 1.43 0.80 - 1.50 mg/dL [facility] [...] CHEMISTRY ORDERABLES Performing Organization Address City/[facility] [place] [address] Magnesium (12/11/2021 4:28 AM EDT) P athologist Signature Magnesium 1.04 0.69 - 1.[address] [facility]/L [facility] LABORATORY Specimen Anatomical Collection Method Collection Time Receive d Time (Source) Location / / Volume Laterality Blood 12/11/2021 4:28 AM 2 4:37 EDT AM EDT Resulting Agency Comment Spec In Lab Iker Cuevas MD CHEMISTRY ORDERABLES Performing Organization Address City/State/ZIP Code Phon e Number [place] [id number] POCT Glucose (12/11/2021 3:58 AM EDT) athologist Signature POC Glucose 189 65 - 199 [facility] mg/dL [facility] LABORATORY Comment: Supplemental ranges: <140 mg/dL before meals <180 mg/dL all other times of the day Specimen Anatomical Collection Method Collection Time Receive d Time (Source) Location / / Volume Laterality Blood 12/11/2021 3:58 AM 2 3:58 EDT AM EDT Iker Cuevas MD POINT OF CARE TEST ORDERABLE S Performing Organization Address City/[facility]/[place] [address] (ABNORMAL) POCT Glucose (12/10/2021 11:45 PM EDT) athologist Signature POC Glucose 205 (H) 65 - 199 [facility] mg/dL [facility] LABORATORY Comment: Supplemental ranges: <140 mg/dL before meals <180 mg/dL all other times of the day Specimen Anatomical Collection Method Collection Time Receive d Time (Source) Location / / Volume Laterality Blood 12/10/2021 11:45 12/10/2021 PM EDT 11:45 PM EDT Iker Cuevas MD POINT OF CARE TEST ORDERABLE S Performing Organization Address City/[facility]/[place] [address] (ABNORMAL) POCT Glucose (12/10/2021 7:54 PM EDT) athologist Signature POC Glucose 225 (H) 65 - 199 [facility] mg/dL [facility] LABORATORY Comment: Supplemental ranges: <140 mg/dL before meals <180 mg/dL all other times of the day Specimen Anatomical Collection Method Collection Time Receive d Time (Source) Location / / Volume Laterality Blood 12/10/2021 7:54 PM 2 7:54 EDT PM EDT Iker Cuevas MD POINT OF CARE TEST ORDERABLE S Performing Organization Address City/State/[place] [address] Potassium (12/10/2021 7:46 PM EDT) athologist Signature Potassium 4.2 3.5 - 5.0 [facility] mmol/L [facility] LABORATORY Comment: Please note: ??Patients [...] City/[facility]/[place] [address] (ABNORMAL) Basic Metabolic Panel (non-fasting) (12/10/2021 6:12 PM EDT) athologist Signature Glucose Lvl 246 (H) 65 - 199 [facility] mg/dL [facility] LABORATORY Comment: Diabetes: >=200 mg/dL plus symp toms BUN 50 (H) 10 - 20 mg/dL [facility] LABORATORY Creatinine 1.39 0.80 - 1.50 mg/dL [facility] [...] City/[facility]/[place] [address] POCT Glucose (12/10/2021 4:59 PM EDT) P athologist Signature POC Glucose 158 65 - 199 [facility] mg/dL [facility] LABORATORY Comment: Supplemental ranges: <140 mg/dL before meals <180 mg/dL all other times of the day Specimen Anatomical Collection Method Collection Time Receive d Time (Source) Location / / Volume Laterality Blood 12/10/2021 4:59 PM 2 4:59 EDT PM EDT Iker Cuevas MD POINT OF CARE TEST ORDERABLE S Performing Organization Address City/State/[place] [address] (ABNORMAL) POCT Glucose (12/10/2021 12:43 PM EDT) P athologist Signature POC Glucose 241 (H) 65 - 199 [facility] mg/dL [facility] LABORATORY Comment: Supplemental ranges: <140 mg/dL before meals <180 mg/dL all other times of the day Specimen Anatomical Collection Method Collection Time Receive d Time (Source) Location / / Volume Laterality Blood 12/10/2021 12:43 12/10/2021 PM EDT 12:43 PM EDT Iker Cuevas MD POINT OF CARE TEST ORDERABLE S Performing Organization Address City/State/ZIP Code Phon e [facility] [address] EKG 12 Lead (12/10/2021 11:17 AM EDT) Component Value Ref Range Test Analysis Performed Pathologis t Method Time At Signature Ventricular rate 62 BPM MUSE SYSTEM Atrial Rate 62 BPM MUSE SYSTEM P-R Interval 142 ms MUSE SYSTEM QRS Duration 100 ms MUSE SYSTEM Q-T Interval 434 ms MUSE SYSTEM QTC Calculated 440 ms MUSE SYSTEM (Bezet) Calculated P [place] 34 degrees MUSE SYSTEM Calculated R [place] -39 degrees MUSE SYSTEM Calculated T [place] 92 degrees MUSE SYSTEM INTERPRETATION Normal sinus [...] 12/10/2021 12:04 PM EDT ?[facility] ? Cardiac Cathete rization/Intervention Report ? Patient Name: Don Fatima. ? Procedure Date: 12/10/2021 ? A #: [id number] ? Primary Physician: Nobles, Vitaliy P ? Case #: [id number] ? File Name: [id number] ? Catheterization Order Number: [id number] ? [facility] ? Final Report [place], [place] ? Patient Name: ? Don E. Stewa rt ? ID#: ?[id number] ? : ?1945 ? Procedure Date: ? December 10, 2021 ? Case #: ? [id number] ? Room: ? 1 ? Case Physician: [...] was ?designated as ASA Class III. e [facility] clinical frailty scale is 5: Mildly ?Frail. [...] procedure was Urgent. The indication for ?the biological lab technician visit is ACS great er [...] ?3.75 guiding catheter and a 3.5 Fr [place] 20 Mhz using Manual ?pullback. ??Imaging was [...] ?3.75 guiding catheter and a 3.5 Fr [place] 20 Mhz using Manual ?pullback. ??Imaging was [...] require ?modification of this regimen. C [facility] Interventional Cardiology for ?questions. ?The [...] Nobles MD - 01/14/[address] [facility] Cardiac Catheterization/Intervention Re port Patient Name: Kushal Don VedaMadiha Procedure Date: 12/10/2021 A #: [id number] Primary Physician: Vitaliy Nobles Case #: [id number] File Name: [id number] Catheterization Order Number: [id number] [facility] Final Report [place], [place] Patient Name: Don Fatima ID#: [...] e was Urgent. The indication for the biological lab technician visit is ACS greater than [...] and a 3.5 Fr [place] 20 Mhz using Manual pullback. Imaging was [...] and a 3.5 Fr [place] 20 Mhz using Manual pullback. Imaging was successful. Image quality was good. The distal LM showed moderate diffuse atherosclero tic plaque. Post Intervention: The stent was well e xpanded and apposed. Indication for Intervention: Coronary intervention was indicated for primary therapy for an acute myocardial infarction. The priority for the procedure was Urgent. The [facility] indication for the procedure was [...] modification of this regimen. Consult D [facility] Interventional Cardiology [...] 11:55 Report Last Ammended: 01/14/2022 12:09 Vitaliy oNbles MD CARDIAC CATH ORDERABLES (ABNORMAL) POCT Glucose (12/10/2021 10:30 AM EDT) athologist Signature POC Glucose 262 (H) 65 - 199 [facility] mg/dL [facility] LABORATORY Comment: Supplemental ranges: <140 mg/dL before meals <180 mg/dL all other times of the day Specimen Anatomical Collection Method Collection Time Receive d Time (Source) Location / / Volume Laterality Blood 12/10/2021 10:30 12/10/2021 AM EDT 10:30 AM EDT Iker Cuevas MD POINT OF CARE TEST ORDERABLE S Performing Organization Address City/State/[place] [address] (ABNORMAL) POCT Glucose (12/10/2021 9:48 AM EDT) athologist Signature POC Glucose 279 (H) 65 - 199 [facility] mg/dL [facility] LABORATORY Comment: Supplemental ranges: <140 mg/dL before meals <180 mg/dL all other times of the day Specimen Anatomical Collection Method Collection Time Receive d Time (Source) Location / / Volume Laterality Blood 12/10/2021 9:48 AM 9:48 EDT AM EDT Iker Cuevas MD POINT OF CARE TEST ORDERABLE S Performing Organization Address City/State/[place] [address] (ABNORMAL) POCT Glucose (12/10/2021 9:07 AM EDT) P athologist Signature POC Glucose 268 (H) 65 - 199 [facility] mg/dL [facility] LABORATORY Comment: Supplemental ranges: <140 mg/dL before meals <180 mg/dL all other times of the day Specimen Anatomical Collection Method Collection Time Receive d Time (Source) Location / / Volume Laterality Blood 12/10/2021 9:07 AM 9:07 EDT AM EDT Ikre Cuevas MD POINT OF CARE TEST ORDERABLE S Performing Organization Address City/State/[place] [address] (ABNORMAL) Point of Care Blood Gas Historical (12/10/2021 9:04 AM EDT) Patholo gist Method Time Signature POC pH 7.40 7.35 - [facility] 7.45 [facility] LABORATORY POC PCO2 40 35 - 45 [facility] mmHg [facility] LABORATORY POC PO2 63 (L) 85 - 104 [facility] LABORATORY POC Base Excess 0.0 -3.0 - 3.0 [facility] K mmol/L [facility] LABORATORY POC HCO3 24.8 20.0 - [facility] 26.0 [facility] mmol/[facility] LABORATORY POC Sodium 143 135 - 145 [facility] mmol/L [facility] LABORATORY POC Potassium 3.7 3.5 - 5.0 [facility] mmol/L [facility] LABORATORY POC Ionized Ca 1.07 (L) 1.15 - [facility] 1.33 [facility] mmol/L HOSPITAL LABORATORY POC Hematocrit 30.0 (L) 40.0 - [facility] 51.0 % [facility] LABORATORY POC Calc Hgb 10.2 (L) 13.7 - [facility] 17.5 g/dL [facility] LABORATORY Comment: The calculation of hemoglobin f rom hematocrit assumes a normal MCHC. POC Bgas Loc CC LAB [facility] LABORATORY Specimen Anatomical Collection Method Collection Time Receive d Time (Source) Location / / Volume Laterality Blood 12/10/2021 9:04 AM 2 EDT 12:00 PM EDT Ifeanyi Truong MD CHEMISTRY ORDERABLES Performing Organization Address City/[facility]/[place] [address] (ABNORMAL) POCT Glucose (12/10/2021 7:19 AM EDT) athologist Signature POC Glucose 274 (H) 65 - 199 [facility] mg/dL [facility] LABORATORY Comment: Supplemental ranges: <140 mg/dL before meals <180 mg/dL all other times of the day Specimen Anatomical Collection Method Collection Time Receive d Time (Source) Location / / Volume Laterality Blood 12/10/2021 7:19 AM 2 7:19 EDT AM EDT Iker Cuevas MD POINT OF CARE TEST ORDERABLE S Performing Organization Address City/[facility]/[place] [address] Heparin (unfractionated) Level (12/10/2021 4:25 AM EDT) athologist Signature Heparin UFH 0.69 IU/mL [facility] LABORATORY Comment: Heparin (anti-Xa) levels should be [...] Address City/State/ZIP Code Phon e Number [address] (ABNORMAL) Differential, Automated (12/10/2021 4:25 AM EDT) [facility] Method Time Signature Neutrophils % 79.8 % [facility] LABORATORY Neutr Abs (ANC) 7.47 (H) 1.70 - [facility] 6.10 [facility] x10(3)/[facility] LABORATORY Lymphocytes % 10.6 % [facility] LABORATORY Lymphocytes Abs 1.0 0.9 - 3.2 [facility] x10(3)/[facility] LABORATORY Monocytes % 8.4 % [facility] LABORATORY Monocyte Abs 0.8 0.3 - 0.9 [facility] x10(3)/[facility] LABORATORY Eosinophils % 0.6 % [facility] LABORATORY Eosinophils Abs 0.1 0.0 - 0.4 [facility] x10(3)/[facility] LABORATORY Basophils % 0.2 % [facility] LABORATORY Basophils Abs 0.0 0.0 - 0.1 [facility] x10(3)/[facility] [...] 0.04 0.00 - 0.04 x10(3)/[facility] LABORATORY Specimen Anatomical Collection Method Collection Time Receive d Time (Source) Location / / Volume Laterality Blood 12/10/2021 4:25 AM 4:34 EDT AM EDT Resulting Agency Comment Spec In Lab Morgan BROWN HEMATOLOGY ORDERABLES Performing Organization Address City/[facility]/ZIP Code Phon e Number [address] (ABNORMAL) Hemogram (12/10/2021 4:25 AM EDT) Analysis Performed At Patho logist Time Signature WBC 9.4 4.0 - 9.5 [facility] x10(3)/[facility] LABORATORY RBC 3.81 (L) 4.58 - [facility] 5.54 [facility] x10(6)/[facility] LABORATORY Hemoglobin 11.1 (L) 13.7 - [facility] 16.5 g/dL [facility] LABORATORY Hematocrit 34.0 (L) 40.5 - [facility] 48.5 % [facility] LABORATORY MCV 89.2 82.9 [facility] 93.1 [facility] LABORATORY MCH 29.1 27.5 [facility] 32.1 pg [facility] LABORATORY MCHC 32.6 32.0 [facility] 35.7 g/dL [facility] LABORATORY Platelets 183 145 - 357 [facility] x10(3)/[facility] LABORATORY RDWSD 49.9 (H) 36.0 - [facility] 45.0 [facility] LABORATORY RDWCV 15.2 (H) 11.4 [facility] 13.8 % [facility] LABORATORY MPV 9.8 7.6 - 12.9 [facility] LABORATORY nRBC % Auto 0.0 % [facility] LABORATORY nRBC Abs Auto 0.000 0.000 - [facility] 0.000 [facility] x10(3)/[facility] LABORATORY Specimen Anatomical Collection Method Collection Time Receive d Time (Source) Location / / Volume Laterality Blood 12/10/2021 4:25 AM 2 4:34 EDT AM EDT Resulting Agency Comment Spec In Lab Morgan BROWN HEMATOLOGY ORDERABLES Performing Organization Address City/State/[place] [address] (ABNORMAL) Prothrombin Time (12/10/2021 4:25 AM EDT) P athologist Signature PT 20.0 (H) 9.4 - 12.5 [facility] LABORATORY INR 1.7 [facility] LABORATORY [...] Organization Address City/State/ZIP Code Phon e Number [place] [id number]OS[address] LAB[address]ORY Drive (ABNORMAL) BMP w/fasting Glucose (12/10/2021 4:25 AM EDT) athologist Signature Glucose 210 (H) 65 - 99 [facility] Fasting mg/dL [facility] LABORATORY Comment: ?Fasting* Glucose Interpretive [...] Creatinine 1.52 (H) 0.80 - 1.50 mg/dL [facility] [...] Organization Address City/State/[place] [address] Magnesium (12/10/2021 4:25 AM EDT) P athologist Signature Magnesium 0.95 0.69 - 1.[address] [facility]/L [facility] LABORATORY Specimen Anatomical Collection Method Collection Time Receive d Time (Source) Location / / Volume Laterality Blood 12/10/2021 4:25 AM 2 4:34 EDT AM EDT Resulting Agency Comment Spec In Lab Iker Cuevas MD CHEMISTRY ORDERABLES Performing Organization Address City/[facility]/[place] [address] POCT Glucose (12/10/2021 1:58 AM EDT) athologist Signature POC Glucose 164 65 - 199 [facility] mg/dL [facility] LABORATORY Comment: Supplemental ranges: <140 mg/dL before meals <180 mg/dL all other times of the day Specimen Anatomical Collection Method Collection Time Receive d Time (Source) Location / / Volume Laterality Blood 12/10/2021 1:58 AM 2 1:58 EDT AM EDT Iker Cuevas MD POINT OF CARE TEST ORDERABLE S Performing Organization Address City/[facility]/[place] [address] (ABNORMAL) POCT Glucose (12/09/2021 9:02 PM EDT) athologist Signature POC Glucose 313 (H) 65 - 199 [facility] mg/dL [facility] LABORATORY Comment: Supplemental ranges: <140 mg/dL before meals <180 mg/dL all other times of the day Specimen Anatomical Collection Method Collection Time Receive d Time (Source) Location / / Volume Laterality Blood 12/09/2021 9:02 PM 2 9:02 EDT PM EDT Iker Cuevas MD POINT OF CARE TEST ORDERABLE S Performing Organization Address City/[facility]/[place] [address] Heparin (unfractionated) Level (12/09/2021 7:30 PM EDT) athologist Signature Heparin UFH 0.48 IU/mL [facility] LABORATORY Comment: Heparin (anti-Xa) levels should be [...] Organization Address City/State/[place] [address] (ABNORMAL) Basic Metabolic Panel (non-fasting) (12/09/2021 7:30 PM EDT) athologist Signature Glucose Lvl 372 (H) 65 - 199 [facility] mg/dL [facility] LABORATORY Comment: Diabetes: >=200 mg/dL plus symp toms BUN 56 (H) 10 - 20 mg/dL [facility] LABORATORY Creatinine 1.75 (H) 0.80 - 1.50 mg/dL [facility] [...] Organization Address City/State/[place] [address] (ABNORMAL) POCT Glucose (12/09/2021 6:34 PM EDT) P athologist Signature POC Glucose 408 (H) 65 - 199 [facility] mg/dL [facility] LABORATORY Comment: Supplemental ranges: <140 mg/dL before meals <180 mg/dL all other times of the day Specimen Anatomical Collection Method Collection Time Receive d Time (Source) Location / / Volume Laterality Blood 12/09/2021 6:34 PM 2 6:34 EDT PM EDT Iker Cuevas MD POINT OF CARE TEST ORDERABLE S Performing Organization Address City/[facility]/[place] [address] (ABNORMAL) POCT Glucose (12/09/2021 6:32 PM EDT) P athologist Signature POC Glucose 356 (H) 65 - 199 [facility] mg/dL [facility] LABORATORY Comment: Supplemental ranges: <140 mg/dL before meals <180 mg/dL all other times of the day Specimen Anatomical Collection Method Collection Time Receive d Time (Source) Location / / Volume Laterality Blood 12/09/2021 6:32 PM 2 6:32 EDT PM EDT Iker Cuevas MD POINT OF CARE TEST ORDERABLE S Performing Organization Address City/State/[place] [address] (ABNORMAL) POCT Glucose (12/09/2021 4:19 PM EDT) athologist Signature POC Glucose 347 (H) 65 - 199 [facility] mg/dL [facility] Comment: Supplemental ranges: <140 mg/dL before meals <180 mg/dL all other times of the day Specimen Anatomical Collection Method Collection Time Receive d Time (Source) Location / / Volume Laterality Blood 12/09/2021 4:19 PM 2 4:19 EDT PM EDT Iker Cuevas MD POINT OF CARE TEST ORDERABLE S Performing Organization Address City/[facility]/[place] [address] Heparin (unfractionated) Level (12/09/2021 1:29 PM EDT) athologist Signature Heparin UFH 0.42 IU/mL [facility] LABORAT[facility] Comment: Heparin (anti-Xa) levels should be [...] Organization Address City/State/[place] [address] (ABNORMAL) POCT Glucose (12/09/2021 12:02 PM EDT) P athologist Signature POC Glucose 235 (H) 65 - 199 [facility]dL [facility] Comment: Supplemental ranges: <140 mg/dL before meals <180 mg/dL all other times of the day Specimen Anatomical Collection Method Collection Time Receive d Time (Source) Location / / Volume Laterality Blood 12/09/2021 12:02 12/09/2021 PM EDT 12:02 PM EDT Iker Cuevas MD POINT OF CARE TEST ORDERABLE S Performing Organization Address City/[facility]/[place] [address] (ABNORMAL) POCT Glucose (12/09/2021 9:44 AM EDT) P athologist Signature POC Glucose 214 (H) 65 - 199 [facility] mg/dL [facility] Comment: Supplemental ranges: <140 mg/dL before meals <180 mg/dL all other times of the day Specimen Anatomical Collection Method Collection Time Receive d Time (Source) Location / / Volume Laterality Blood 12/09/2021 9:44 AM 9:44 EDT AM EDT Iker Cuevas MD POINT OF CARE TEST ORDERABLE S Performing Organization Address City/[facility]/[place] [address] EKG 12 Lead (12/09/2021 7:57 AM EDT) Component Value Ref Range Test Analysis Performed Pathologis t Method Time At Signature Ventricular rate 101 BPM MUSE SYSTEM Atrial Rate 101 BPM MUSE SYSTEM P-R Interval 150 ms MUSE SYSTEM QRS Duration 112 ms MUSE SYSTEM Q-T Interval 364 ms MUSE SYSTEM QTC Calculated 471 ms MUSE SYSTEM (Bezet) Calculated P [place] 59 degrees MUSE SYSTEM Calculated R [place] -42 degrees MUSE SYSTEM Calculated T [place] 102 degrees MUSE SYSTEM INTERPRETATION Sinus tachycardia Occasional Premature ventricular com plexes MUSE SYSTEM Left axis deviation 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) Abnormal ECG When compared with ECG of 08-DEC-2021 16:40, Premature ventricular complexes are now Present Confirmed by MD Fernandez Danette ([id number]) on 12/10/2021 4:55:06 PM Specimen Anatomical Collection Method Collection Time Receive d Time (Source) Location / / Volume Laterality 12/09/2021 7:57 AM 2 4:55 EDT PM EDT Iker Cuevas MD ECG ORDERABLES Performing Organization Address City/State/ZIP Code Phon e Number MUSE SYSTEM (ABNORMAL) POCT Glucose (12/09/2021 7:28 AM EDT) P athologist Signature POC Glucose 263 (H) 65 - 199 [facility] mg/dL [facility] Comment: Supplemental ranges: <140 mg/dL before meals <180 mg/dL all other times of the day Specimen Anatomical Collection Method Collection Time Receive d Time (Source) Location / / Volume Laterality Blood 12/09/2021 7:28 AM 2 7:28 EDT AM EDT Iker Cuevas MD POINT OF CARE TEST ORDERABLE S Performing Organization Address City/State/[place] [address] (ABNORMAL) Hemoglobin A1c (12/09/2021 [...] Mellitus, Diabetes Care 2013; 36: Suppl. 1, Z63-94 Est Avg Gluc See note mg/dL [facility] [...] with hemoglobinopathies. Additional resources are available on [facility] ADA website. Macario HAMMOND, Ruthann J, Deysi R, et al. ??Tr anslating the A1C assay into estimated average glucose values. ??Diabetes Care 2008:31(8):0075-1045. Specimen Anatomical Collection Method Collection Time Receive d Time (Source) Location / / Volume Laterality Blood Venous Draw / 12/09/2021 6:18 AM 12/10/19 22 Unknown EDT 12:24 PM EDT Resulting Agency Comment Spec In Lab Migdalia BROWN CHEMISTRY ORDERABLES Performing Organization Address City/State/[place] [address] (ABNORMAL) Prothrombin Time (12/09/2021 6:18 AM EDT) athologist Signature PT 26.6 (H) 9.4 - 12.5 [facility] LABORATORY INR 2.3 [facility] LABORATORY [...] City/[facility]/ZIP Code Phon e Number [address] Heparin (unfractionated) Level (12/09/2021 6:18 AM EDT) P athologist Signature Heparin UFH 0.24 IU/mL [facility] LABORATORY Comment: Heparin (anti-Xa) levels should be [...] City/[facility]/[place] [address] (ABNORMAL) Differential, Automated (12/09/2021 6:18 AM EDT) Patholo gist Method Time Signature Neutrophils % 91.5 % [facility] Neutr Abs (ANC) 15.78 (H) 1.70 - [facility] 6.10 [facility] x10(3)/[facility] LABORATORY Lymphocytes % 2.9 % [facility] Lymphocytes Abs 0.5 (L) 0.9 - 3.2 [facility] x10(3)/[facility] LABORATORY Monocytes % 4.9 % [facility] Monocyte Abs 0.8 0.3 - 0.9 [facility] x10(3)/[facility] LABORATORY Eosinophils % 0.0 % [facility] Eosinophils Abs 0.0 0.0 - 0.4 [facility] x10(3)/[facility] LABORATORY Basophils % 0.2 % [facility] Basophils Abs 0.0 0.0 - 0.1 [facility] x10(3)/[facility] [...] Organization Address City/State/[place] [address] (ABNORMAL) Hemogram (12/09/2021 6:18 AM EDT) Analysis Performed At Patho logist Time Signature WBC 17.2 (H) 4.0 - 9.5 [facility] x10(3)/[facility] LABORATORY RBC 4.32 (L) 4.58 - [facility] 5.54 [facility] x10(6)/[facility] LABORATORY Hemoglobin 12.6 (L) 13.7 - [facility] 16.5 g/dL [facility] Hematocrit 38.9 (L) 40.5 - [facility] 48.5 % [facility] MCV 90.0 82.9 - [facility] 93.1 [facility] LABORATORY MCH 29.2 27.5 - [facility] 32.1 pg [facility] MCHC 32.4 32.0 - [facility] 35.7 g/dL [facility] Platelets 193 145 - 357 [facility] x10(3)/[facility] LABORATORY RDWSD 50.4 (H) 36.0 - [facility] 45.0 [facility] LABORATORY RDWCV 15.2 (H) 11.4 - [facility] 13.8 % [facility] MPV 9.5 7.6 - 12.9 [facility] LABORATORY nRBC % Auto 0.0 % [facility] nRBC Abs Auto 0.000 0.000 - [facility] 0.000 [facility] x10(3)/[facility] LABORATORY Specimen Anatomical Collection Method Collection Time Receive d Time (Source) Location / / Volume Laterality Blood 12/09/2021 6:18 AM 6:33 EDT AM EDT Resulting Agency Comment Spec In Lab Morgan BROWN HEMATOLOGY ORDERABLES Performing Organization Address City/State/[place] [address] Lipid Panel (Reflex Direct LDL) (12/09/2021 6:18 AM EDT) P athologist Signature Chol, Total 105 mg/dL [facility] Comment: Lower Risk: <200 mg/dL Average Risk: 200-239 mg/dL Higher Risk: >ud=835 mg/dL Triglycerides 133 mg/dL [facility] Comment: Average Risk/Lower Risk: <150 mg/dL Borderline High Risk: 150-199 mg/dL High Risk: 200-499 mg/dL Very High Risk: >qg=604 mg/dL HDL 42 mg/dL [facility] Comment: Males: ?? Higher Risk: <40 mg/dL Females: ?? Higher Risk: <50 mg/dL LDL Cholesterol 36 mg/dL [facility] Comment: Lowest Risk: <100 mg/dL Lower Risk: 100-129 mg/dL Borderline High Risk: 130-159 mg/dL High Risk: 160-189 mg/dL Very High Risk: >uw=983 mg/dL Chol/HDL Ratio 2.5 ratio [facility] Lipid Interpretation See Note [facility] Comment: Lipid management should be guided by a p atient? s ASCVD risk, goals and preferences. ACC/AHA Guidelines recommend high intens ity statin if clinical ASCVD or LDL greater than or equal to 190 mg/dL. http://Gallery [employer].Guidance Software/NOL-GHI-Qkesdnrvc Adults aged 40-75 with LDL 70-189 mg/dL should have their 10 year ASCVD risk estimated with the ACC/AHA ASCVD risk es timator http://tools.acc.org/KIVUB-Wwil-Osuqgsak r/ Statin should be discussed if risk [...] Organization Address City/State/[place] [address] TSH (12/09/2021 6:18 AM EDT) athologist Signature TSH 1.60 0.27 - 4.20 [facility] mcIU/mL [facility] Comment: Reference Interval (mcIU/mL): Females: ??First Trimester: 0.23-3.88 ??Second Trimester: 0.22-3.90 ??Third Trimester: 0.44-4.66 Specimen Anatomical Collection Method Collection Time Receive d Time (Source) Location / / Volume Laterality Blood 12/09/2021 6:18 AM 2 6:33 EDT AM EDT Resulting Agency Comment Spec In Lab Iker Cuevas MD CHEMISTRY ORDERABLES Performing Organization Address City/[facility]/[place] [address] Hepatic Function Panel (12/09/2021 6:18 AM EDT) athologist Signature Total Protein 7.3 6.1 - 8.0 [facility] g/dL [facility] Albumin 4.2 3.2 - 5.2 [facility] RYAN g/dL [facility] AST 25 0 - 39 [facility] R[facility]AN unit/L [facility] ALT 15 0 - 55 [facility] unit/L [facility] Alk Phos 75 40 - 130 [facility] unit/L [facility] Total 1.1 0.2 - 1.3 [facility] Bilirubin mg/dL [facility] Bili, Direct 0.2 0.0 - 0.3 [facility] mg/dL [facility] Specimen Anatomical Collection Method Collection Time Receive d Time (Source) Location / / Volume Laterality Blood 12/09/2021 6:18 AM 2 6:33 EDT AM EDT Resulting Agency Comment Spec In Lab Iker Cuevas MD CHEMISTRY ORDERABLES Performing Organization Address City/[facility] [address] (ABNORMAL) BMP w/fasting Glucose (12/09/2021 6:18 AM EDT) P athologist Signature Glucose 235 (H) 65 - 99 [facility] Fasting mg/dL [facility] Comment: ?Fasting* Glucose Interpretive [...] Address City/State/ZIP Code Phon e Number [address] Magnesium (12/09/2021 6:18 AM EDT) P athologist Signature Magnesium 0.81 0.69 - 1.07 [facility] mmol/L [facility] Specimen Anatomical Collection Method Collection Time Receive d Time (Source) Location / / Volume Laterality Blood 12/09/2021 6:18 AM 2 6:33 EDT AM EDT Resulting Agency Comment Spec In Lab Iker Cuevas MD CHEMISTRY ORDERABLES Performing Organization Address City/State/[place] [address] (ABNORMAL) Troponin (12/09/2021 6:18 AM EDT) athologist Signature Troponin-T 1.13 (H) 0.00 - [facility] 0.00 ng/mL [facility] Comment: The 99th percentile [...] additional sample may be indicated. Reference: Third Dawson Definition of Myocardial Infarction. Journal of the [place] [employer] 2012;60:1581-98 Specimen Anatomical Collection Method Collection Time Receive d Time (Source) Location / / Volume Laterality Blood 12/09/2021 6:18 AM 6:33 EDT AM EDT Resulting Agency Comment Spec In Lab Iker Cuevas MD CHEMISTRY ORDERABLES Performing Organization Address City/State/ZIP Code Phon e Number [place] [id number] XR Chest One View [...] technician that requested your imaging first. ? Narrative [...] imaging first. Electronically signed by: Yoselin White, [facility] ([phone]), at 12/09/2021 5:35 AM Amber Sanches MD IMG DX ORDERABLES (ABNORMAL) BLOOD GAS 2 ARTERIAL (12/09/2021 5:14 AM EDT) Analysis Performed At Path logis Time Signature pH Art 7.43 7.35 - [facility] 7.45 [facility] pCO2 Art 36 35 - 45 [facility] LABORATORY pO2 Art 67 (L) 85 - 104 [facility] LABORATORY HCO3 Art 23.4 20.0 - [facility] 26.0 [facility] mmol/L [facility] LABOR[facility]ORY BE Art -0.9 -3.0 - 3.0 [facility] mmol/L [facility] Hgb Blood Gas 13.2 (L) 13.7 - [facility] 16.5 g/dL [facility] O2HB Art 91.3 (L) 94.0 - [facility] 97.0 % [facility] COHB Art 0.4 % [facility] FIO2 Art 35 % [facility] Flow Art 8.0 LPM [facility] PF Ratio Art 191 [facility] LABOR[facility]ORY Specimen Anatomical Collection Method Collection Time Receive d Time (Source) Location / / Volume Laterality Blood 12/09/2021 5:14 AM 5:14 EDT AM EDT Iker Cuevas MD CHEMISTRY ORDERABLES Performing Organization Address City/State/[place] [address] POCT Glucose (12/09/2021 4:46 AM EDT) athologist Signature POC Glucose 198 65 - 199 [facility] mg/dL [facility] Comment: Supplemental ranges: <140 mg/dL before meals <180 mg/dL all other times of the day Specimen Anatomical Collection Method Collection Time Receive d Time (Source) Location / / Volume Laterality Blood 12/09/2021 4:46 AM 2 4:46 EDT AM EDT Iker Cuevas MD POINT OF CARE TEST ORDERABLE S Performing Organization Address City/State/[place] [address] (ABNORMAL) POCT Glucose (12/09/2021 3:01 AM EDT) athologist Signature POC Glucose 225 (H) 65 - 199 [facility] mg/dL [facility] Comment: Supplemental ranges: <140 mg/dL before meals <180 mg/dL all other times of the day Specimen Anatomical Collection Method Collection Time Receive d Time (Source) Location / / Volume Laterality Blood 12/09/2021 3:01 AM 2 3:01 EDT AM EDT Iekr Cuevas MD POINT OF CARE TEST ORDERABLE S Performing Organization Address City/State/[place] [address] (ABNORMAL) POCT Glucose (12/08/2021 10:55 PM EDT) athologist Signature POC Glucose 327 (H) 65 - 199 [facility] mg/dL [facility] Comment: Supplemental ranges: <140 mg/dL before meals <180 mg/dL all other times of the day Specimen Anatomical Collection Method Collection Time Receive d Time (Source) Location / / Volume Laterality Blood 12/08/2021 10:55 12/08/2021 PM EDT 10:55 PM EDT Iker Cuevas MD POINT OF CARE TEST ORDERABLE S Performing Organization Address City/State/[place] [address] Heparin (unfractionated) Level (12/08/2021 10:03 PM EDT) P athologist Signature Heparin UFH 0.18 IU/mL [facility] LABORATORY Comment: Heparin (anti-Xa) levels should be [...] Organization Address City/State/[place] [address] (ABNORMAL) Troponin (12/08/2021 10:03 PM EDT) athologist Signature Troponin-T 0.92 (H) 0.00 - [facility] 0.00 ng/mL [facility] Comment: The 99th percentile [...] additional sample may be indicated. Reference: Third Dawson Definition of Myocardial Infarction. Journal of the [place] [employer] 2012;60:1581-98 Specimen Anatomical Collection Method Collection Time Receive d Time (Source) Location / / Volume Laterality Blood 12/08/2021 10:03 12/08/2021 PM EDT 10:31 PM EDT Resulting Agency Comment Spec In Lab Iker Cuevas MD CHEMISTRY ORDERABLES Performing Organization Address City/[facility]/[place] [address] (ABNORMAL) POCT Glucose (12/08/2021 8:22 PM EDT) athologist Signature POC Glucose 429 (H) 65 - 199 [facility] RYAN mg/dL [facility] Comment: Supplemental ranges: <140 mg/dL before meals <180 mg/dL all other times of the day Specimen Anatomical Collection Method Collection Time Receive d Time (Source) Location / / Volume Laterality Blood 12/08/2021 8:22 PM 2 8:22 EDT PM EDT Iker Cuevas MD POINT OF CARE TEST ORDERABLE S Performing Organization Address City/[facility]/[place] [address] (ABNORMAL) POCT Glucose (12/08/2021 7:06 PM EDT) P athologist Signature POC Glucose 442 (H) 65 - 199 [facility] mg/dL [facility] Comment: Supplemental ranges: <140 mg/dL before meals <180 mg/dL all other times of the day Specimen Anatomical Collection Method Collection Time Receive d Time (Source) Location / / Volume Laterality Blood 12/08/2021 7:06 PM 2 7:06 EDT PM EDT Iker Cuevas MD POINT OF CARE TEST ORDERABLE S Performing Organization Address City/[facility]/[place] [address] Magnesium (12/08/2021 6:02 PM EDT) athologist Signature Magnesium 0.86 0.69 - 1.07 [facility] mmol/L [facility] Specimen Anatomical Collection Method Collection Time Receive d Time (Source) Location / / Volume Laterality Blood 12/08/2021 6:02 PM 6:36 EDT PM EDT Resulting Agency Comment Spec In Lab Iker Cuevas MD CHEMISTRY ORDERABLES Performing Organization Address City/State/ZIP Code Phon e Number [address] (ABNORMAL) Basic Metabolic Panel (non-fasting) (12/08/2021 6:02 PM EDT) athologist Signature Glucose Lvl 392 (H) 65 - 199 [facility] mg/dL [facility] Comment: Diabetes: >=200 mg/dL plus symp toms BUN 41 (H) 10 - 20 mg/dL [facility] Creatinine 1.44 0.80 - 1.50 mg/dL [facility] [...] Organization Address City/State/[place] [address] (ABNORMAL) Differential, Automated (12/08/2021 6:02 PM EDT) [facility] gist Method Time Signature Neutrophils % 89.5 % [facility] Neutr Abs (ANC) 13.97 (H) 1.70 - [facility] 6.10 [facility] x10(3)/[facility] LABORATORY Lymphocytes % 3.7 % [facility] Lymphocytes Abs 0.6 (L) 0.9 - 3.2 [facility] x10(3)/[facility] LABORATORY Monocytes % 6.1 % [facility] Monocyte Abs 1.0 (H) 0.3 - 0.9 [facility] x10(3)/[facility] LABORATORY Eosinophils % 0.0 % [facility] Eosinophils Abs 0.0 0.0 - 0.4 [facility] x10(3)/[facility] LABORATORY Basophils % 0.2 % [facility] Basophils Abs 0.0 0.0 - 0.1 [facility] x10(3)/[facility] [...] 0.08 (H) 0.00 - 0.04 x10(3)/[facility] LABORATORY Specimen Anatomical Collection Method Collection Time Receive d Time (Source) Location / / Volume Laterality Blood 12/08/2021 6:02 PM 6:36 EDT PM EDT Resulting Agency Comment Spec In Lab Morgan BROWN HEMATOLOGY ORDERABLES Performing Organization Address City/State/[place] [address] (ABNORMAL) Hemogram (12/08/2021 6:02 PM EDT) Analysis Performed At Patho logist Time Signature WBC 15.6 (H) 4.0 - 9.[address] [address] x[facility](3[facility] LABORATORY RBC 4.05 (L) 4.58 - [facility] RYAN 5.54 [facility] x10(6)/[facility] LABORATORY Hemoglobin 11.8 (L) 13.7 - [facility] 16.5 g/dL [facility] Hematocrit 35.8 (L) 40.5 - [facility] 48.5 % [facility] MCV 88.4 82.9 - [facility] 93.1 [facility] LABORATORY MCH 29.1 27.5 - [facility] RYAN 32.1 pg [facility] MCHC 33.0 32.0 - [facility] 35.7 g/dL [facility] Platelets 178 145 - 357 [facility] x[facility](3[facility] LABORATORY RDWSD 49.3 (H) 36.0 - [facility] RYAN 45.0 [facility] LABORATORY RDWCV 15.1 (H) 11.4 - [facility] RYAN 13.8 % [facility]ORATORY MPV 10.4 7.6 - 12.9 [facility] LABORATORY nRBC % Auto 0.0 % [facility] nRBC Abs Auto 0.000 0.000 - [place] [facility] 0.000 [facility] x10(3)/[facility] LABORATORY Specimen Anatomical Collection Method Collection Time Receive d Time (Source) Location / / Volume Laterality Blood 12/08/2021 6:02 PM 2 6:36 EDT PM EDT Resulting Agency Comment Spec In Lab Morgan BROWN HEMATOLOGY ORDERABLES Performing Organization Address City/State/ZIP Code Phon [place] [address] (ABNORMAL) Troponin (12/08/2021 6:02 PM EDT) athologist Signature Troponin-T 0.89 (H) 0.00 - [facility] 0.00 ng/mL [facility] Comment: The 99th percentile [...] additional sample may be indicated. Reference: Third Dawson Definition of Myocardial Infarction. Journal of the [place] [employer] 2012;60:1581-98 Specimen Anatomical Collection Method Collection Time Receive d Time (Source) Location / / Volume Laterality Blood 12/08/2021 6:02 PM 2 6:36 EDT PM EDT Resulting Agency Comment Spec In Lab Iker Cuevas MD CHEMISTRY ORDERABLES Performing Organization Address City/State/ZIP Code [place] [address] COVID-19 PCR (12/08/2021 5:00 PM EDT) [facility] Method Time Signature SARS-CoV-2 Not Detected Not Detected [facility] RNA PCR [facility] LABORATORY Comment: This result should [...] using the Simplexa COVID-19 Direct Assay by [email or web address] as authorized by the FDA issued [...] clinical management guidance information are available at [facility] Coronavirus Disease 2019 (COVID-19) webpage under Information fo r Healthcare Professionals (https://www.cdc.gov/coronavirus/2019-nc ov/hcp/index.html). Additional information about this and ot her EUA tests can be found in provider and patient fact sheets at the following FDA website: https://www.fda.gov/medical-devices/pynkvtdtsgc-hwoitlx-3941-ixhqa-22-raahovwvo- gqr-zzpcggetvgirmk-jfpvnoc-devices/qtkzl-xanniadxbpi-vjvl SARS-CoV-2 Source [employer] Sw[employer] [facility] LABORATORY Specimen (Source) Anatomical Collection Method Collection Time Re ceived Time Location / / Volume Laterality Nasopharyngeal Swab 12/08/2021 5:00 12/08 PM EDT 6:03 PM EDT Comment: Symptoms->Surveillance Resulting Agency Comment Spec In Lab Iker Cuevas MD MICROBIOLOGY - GENERAL ORDER ROBS[place] Performing Organization Address City/[facility] Phon e Number [place] [id number]OSP[address] LAB[address] Drive EKG 12 Lead (12/08/2021 4:40 PM EDT) Component Value Ref Range Test Analysis Performed Pathologis t Method Time At Signature Ventricular rate 78 BPM MUSE SYSTEM Atrial Rate 78 BPM MUSE SYSTEM P-R Interval 152 ms MUSE SYSTEM QRS Duration 96 ms MUSE SYSTEM Q-T Interval 396 ms MUSE SYSTEM QTC Calculated 451 ms MUSE SYSTEM (Bezet) Calculated P [place] 44 degrees MUSE SYSTEM Calculated R [place] -31 degrees MUSE SYSTEM Calculated T [place] 124 degrees MUSE SYSTEM INTERPRETATION Normal sinus [...] ECG ORDERABLES Performing Organization Address City/[facility] Phon e Number MUSE SYSTEM (ABNORMAL) POCT Glucose (12/08/2021 4:34 PM EDT) P athologist Signature POC Glucose 400 (H) 65 - [address] [address] mg/dL [facility] Comment: Supplemental ranges: <140 mg/dL before meals <180 mg/dL all other times of the day Specimen Anatomical Collection Method Collection Time Receive d Time (Source) Location / / Volume Laterality Blood 12/08/2021 4:34 PM 4:34 EDT PM EDT Iker Cuevas MD POINT OF CARE TEST ORDERABLE S Performing Organization Address City/State/ZIP Code [place] [address] documented in this encounter Visit Diagnoses Diagnosis Admitted with CHF. 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 OSMANI ok. PCI of LM/ostial Cx. Will stage RPDA for 2 w eeks. EDP 30. DM. MARIA VITCORIA. ICM. Home Wednesday. - Primary Unspecified general medical examination ST elevation myocardial infarction (STEM I), unspecified artery Acute HFrEF (heart failure with reduced ejection fraction) ASHD (arteriosclerotic heart disease) Coronary atherosclerosis of unspecified type of vessel, council or graft Cardiomyopathy, ischemic Other specified forms [...] VAMSI )2345 (Given - Provider: Barbara Boogie, VASMI) pantoprazole EC (Protonix) tablet 40 mg 0735 [...] DO NOT CRUSH OR OPEN, Routine 1230 ([facility] Unhold - Provider: Admin Adt) [...] (Glutose) 40% oral geL(Linked Group 2) 0805 ([facility] Hold - Provider: Admin Adt - Reason: Transfer to a Procedural area)1230 ([facility] Unhold - Provider: Admin Adt) [...] (Intra-Procedure), Routine niCARdipine (Cardene) (100 mcg/mL) dilution (POLYSOM TECH) (CANCELED) 1030 (Given - Provider: Vitaliy Nobles [...] mg per tablet 1 tab let 0805 ([facility] Hold - Provider: Admin Adt - Reason: Transfer to a Procedural area)1230 ([facility] Unhold - Provider: Admin Adt) 1 tablet, Oral, 2 TIMES DAILY PRN, Start ing on Wed12/09/21 at 1628, Until Wed12/12/21 at 1312, Constipation, Routine sodium chloride 0.9 % (flush) (BD PosiFlush Normal Sean ine 0.9) flush 5-20 mL 0805 ([facility] Hold - Provider: Admin Adt - Reason: Transfer to a Procedural area)1230 ([facility] Unhold - Provider: Admin Adt) [...] episode. & nbsp; For persistent hypoglycemia, con hide trimmer longer-acting treatment for the duration of the [...]
Routine documented in this encounter Care Teams Type Bar And Segment Assembler Relationship Specialty Start Date End Date Lovely Vicente MD PCP - General 04/16/[address] [place] [address] documented as of this encounter
--- OUTSIDE RECORDS SUMMARY | 2022-04-27 08:13 | XMS_ITS | Encounter Summary ---
:1945 Author Organization [facility] Address [place] [place] [address] Care Team Providers Name Role Phone Lovely Vicente MD Primary Care Provider Encounter Details Date Type Department Care Team Description 01/02/2020 Office Visit Dermatology at [facility] keratoses; Abdelrahman HOOPER MD History of melanoma; [address] [facility] History of dysplastic nevus; [place] [address] Multiple benign nevi; [phone] [facility] Seborrheic yossi lancaster; RD-DERMATOLGY Skin exam for malignant neoplasm [place], [place] [address] Social History Tobacco Use Types [...] Dolan MD [facility] [address] [place], [place] [address] (Wo lissa) 05/28/2022 Laboratory Appointment Lab 05/28/2022 Office Visit Cardiology Zulma Dolan [place] [address] Liz Poole PA [facility] [place] [address] 06/10/2022 Office Visit Dermatology Laura Scherer MD [facility] [address] [place], [place] [address] (Wo lissa) documented as of [...] skin documented in this encounter Care Teams Maintenance Team Member Relationship Specialty Start Date End Date Lovely Vicente MD PCP - General 04/16/15 [facility] [address] [place] [address] documented as of this encounter
--- OUTSIDE RECORDS SUMMARY | 2022-04-27 08:13 | XMS_ITS | Encounter Summary ---
:1945 Author Organization [facility] [place] [address] Care Team Providers Name Role Phone Lovely Vicente MD Primary Care Provider Encounter Details Date Type Department Care Team Description 04/18/2018 Laboratory Appointment Lab 3L [facility] [place] [id number] Social History Tobacco Use Types Packs/Day Years [...] Zulma Dolan MD [facility] [place] [address] [place], [place] [address] (Wo rk) 05/28/2022 Laboratory Appointment Lab 05/28/2022 Office Visit Cardiology Zulma Dolan MD [facility] [place] [id number] Liz Poole PA [facility] [place] [address] 06/10/2022 Office Visit Dermatology Laura Scherer MD [facility] ER DR [address] [place], [place] [address] (Wo rk) documented as of [...] Signature Total Protein 7.6 6.1 - 8.0 [facility] RYAN gm/dL [facility] Albumin 4.0 3.2 - 5.2 [facility] R[facility] gm/dL [facility] AST 36 0 - 39 [facility] R[facility] unit/L [facility] ALT 27 0 - 55 [place] [facility] unit/L [facility] Alk Phos 96 40 - 120 [facility] R[facility] unit/L [facility] Total 0.7 0.2 - 1.3 [place] [employer] Bilirubin mg/dL [facility] Bili, Direct 0.1 0.0 - 0.3 [facility] R[facility]AN mg/dL [facility] Specimen Anatomical Collection Method Collection Time Receive d Time (Source) Location / / Volume Laterality Blood specimen Venous Draw / 04/18/2018 9:19 AM 2017 9:44 (specimen) Unknown EDT AM EDT Resulting Agency Comment Spec In Lab Danette Maxwell APRN CHEMISTRY ORDERABLES Performing Organization Address City/State/[place] [address] TSH (04/18/2018 9:19 AM EDT) athologist Signature TSH 1.77 0.27 - 4.20 [facility] mlU/ML [facility] Specimen Anatomical Collection Method Collection Time Receive d Time (Source) Location / / Volume Laterality Blood specimen Venous Draw / 04/18/2018 9:19 AM 2017 9:44 (specimen) Unknown EDT AM EDT Resulting Agency Comment Spec In Lab Danette Maxwell APRN CHEMISTRY ORDERABLES Performing Organization Address City/State/[place] [address] (ABNORMAL) Basic Metabolic Panel (non-fasting) (04/18/2018 9:19 AM EDT) athologist Signature Glucose Lvl 167 65 - 199 [facility] mg/dL [facility] Comment: Diabetes: >=200 mg/dL plus symp toms BUN 18 10 - 20 mg/dL [facility] Creatinine 1.19 0.80 - 1.50 mg/dL [facility] Sodium 147 (H) 135 - 145 mmol/L [facility] [...] mg/dL [facility] Estimated GFR 61 >=60 mL/min/1.73 m?? [facility] Comment: The eGFR was calculated using the CKD-EP I equation. As with all creatinine based estimates of kidney function, eGFR values calculated with the CKD-EPI equation are not accurate in patients wi th acute kidney failure, extremes of body mass or the acutely ill. http://MONOQI/DHMCnkf eGFR 70 >=60 mL/min/1.73 m?? [facility] Comment: The eGFR was calculated using the CKD-EP I equation. As with all creatinine based estimates of kidney function, eGFR values calculated with the CKD-EPI equation are not accurate in patients wi th acute kidney failure, extremes of body mass or the acutely ill. http://MONOQI/DHnkf Specimen Anatomical Collection Method Collection Time Receive d Time (Source) Location / / Volume Laterality Blood specimen 04/18/2018 9:19 AM 018 9:34 (specimen) EDT AM EDT Resulting Agency Comment Spec In Lab Danette Maxwell APRN CHEMISTRY ORDERABLES Performing Organization Address City/[facility]/[place] [address] (ABNORMAL) pro-Brain Natriuretic Peptide (04/18/2018 9:19 AM EDT) P athologist Signature ProBNP 2,199 (H) <=125 [facility] pg/mL [facility] Specimen Anatomical Collection Method Collection Time Receive d Time (Source) Location / / Volume Laterality Blood specimen 04/18/2018 9:19 AM 018 9:34 (specimen) EDT AM EDT Resulting Agency Comment Spec In Lab Danette Maxwell APRN CHEMISTRY ORDERABLES Performing Organization Address City/[facility]/[place] [address] documented in this encounter Visit Diagnoses Diagnosis Chronic systolic heart failure documented in this encounter Care Teams Edi Consultant Relationship Specialty Start Date End Date Lovely Vicente MD PCP - General 04/16/[address] [place] [address] documented as of this encounter
--- OUTSIDE RECORDS SUMMARY | 2022-04-27 08:13 | XMS_ITS | Encounter Summary ---
:1945 [place] [address] Care Team Providers Name Role Phone Lovely Vicente MD Primary Care Provider Encounter Details Date Type Department Care Team Description 03/20/2021 Telephone Neurology at [facility] Hugo Gaston MD [facility] [place] [address] [place] [address] [phone] (Wo rk) Social History Tobacco Use Types [...] - 03/20/2021 6:03 PM EDT Call from [facility]. 76 M with h/o DM. CABG, [...] Gaston MD Department of Neurology Pager # [phone] documented in this encounter Plan of Treatment Upcoming Encounters Date Type Specialty Care Team Description 05/28/2022 Appointment Cardiology Zulma Dolan MD [facility] [place], [place] [address] (Wo rk) 05/28/2022 Laboratory Appointment Lab 05/28/2022 Office Visit Cardiology Zulma Dolan MD [facility] [place] [address] Liz Poole PA [facility] [place] [address] 06/10/2022 Office Visit Dermatology Laura Scherer MD [facility] DR [address] [place], [place] [address] (Wo rk) documented as of this encounter Visit Diagnoses Not on filedocumented in this encounter Care Teams Hosiery Pairer Relationship Specialty Start Date End Date Lovely Vicente MD PCP - General 04/16/[address] [place] [address] documented as of this encounter
--- OUTSIDE RECORDS SUMMARY | 2022-04-27 08:13 | XMS_ITS | Encounter Summary ---
:1945 Author Organization [facility] [place] [address] Care Team Providers Name Role Phone Lovely Vicente MD Primary Care Provider Encounter Details Date Type Department Care Team Description 07/28/2019 Laboratory Appointment Lab 3L [facility] [place] [phone] Social History Tobacco Use Types Packs/Day Years [...] Dolan MD [facility] er [place], [place] [address] (Wo rk) 05/28/2022 Laboratory Appointment Lab 05/28/2022 Office Visit Cardiology Zulma Dolan MD [facility] [place] [address] Liz Poole PA [facility] [place] [address] 06/10/2022 Office Visit Dermatology Laura Scherer MD [facility] [address] [place] [address] (Wo rk) documented as of this encounter [...] athologist Signature ProBNP 647 (H) <=125 pg/mL [facility] Specimen Anatomical Collection Method Collection Time Receive d Time (Source) Location / / Volume Laterality Blood specimen 07/28/2019 8:36 AM 020 8:46 (specimen) EST AM EST Resulting Agency Comment Spec In Lab Danette Maxwell APRN CHEMISTRY ORDERABLES Performing Organization Address City/State/[place] [address] (ABNORMAL) Basic Metabolic Panel (non-fasting) (07/28/2019 8:36 AM EST) athologist Signature Glucose Lvl 153 65 - 199 [facility] mg/dL [facility] Comment: Diabetes: >=200 mg/dL [...] mg/dL [facility] Estimated GFR 70 >=60 mL/min/1.73 m?? [facility] Comment: The eGFR was calculated using the CKD-EP I equation. As with all creatinine based estimates of kidney function, eGFR values calculated with the CKD-EPI equation are not accurate in patients wi th acute kidney failure, extremes of body mass or the acutely ill. http://PostRocket/RainDance Technologiesnkf eGFR 81 >=60 mL/min/1.73 m?? [facility] Comment: The eGFR was calculated using the CKD-EP I equation. As with all creatinine based estimates of kidney function, eGFR values calculated with the CKD-EPI equation are not accurate in patients wi th acute kidney failure, extremes of body mass or the acutely ill. http://PostRocket/[facility] – VINITAnkf Specimen Anatomical Collection Method Collection Time Receive d Time (Source) Location / / Volume Laterality Blood specimen 07/28/2019 8:36 AM 020 8:46 (specimen) EST AM EST Resulting Agency Comment Spec In Lab Danette Maxwell APRN CHEMISTRY ORDERABLES Performing Organization Address City/State/[place] [address] documented in this encounter Visit Diagnoses Diagnosis Chronic systolic heart failure documented in this encounter Care Teams Stitch Separator Relationship Specialty Start Date End Date Lovely Vicente MD PCP - General 04/16/[address] [place] [address] documented as of this encounter
--- OUTSIDE RECORDS SUMMARY | 2022-04-27 08:13 | XMS_ITS | Encounter Summary ---
:1945 Author Organization [facility] [place] [address] Care Team Providers Name Role Phone Lovely Vicente MD Primary Care Provider Encounter Details Date Type Department Care Team Description 12/07/2021 Telephone Cardiology Eddi Briceño Jr., [facility] Jorge [place] [address] [facility] [phone] CARDIOLOGY DEPT [place], [place] [address] (Wo rk) Social History Tobacco [...] [facility] Referring Provider: Marisela Dean, SERVICES ADVISOR [address] [place] [address] Don Veda Kushal 76 y.o. w / [...] bpm, LAFB, poor R wave progression, septal [place], and lateral STD, overall no significantchange from [...] Cardiology Zulma Dolan MD [facility] [place] [address] (Wo rk) 05/28/2022 Laboratory Appointment Lab 05/28/2022 Office Visit Cardiology Zulma Dolan MD [facility] [place] [address] Liz Poole PA [facility] Dr Cardiology [place] [address] 06/10/2022 Office Visit Dermatology Laura Scherer MD [facility] [address] [place], [place] [address] (Wo rk) documented as of this encounter Visit Diagnoses Not on filedocumented in this encounter Care Teams Customer Solutions Specialist Relationship Specialty Start Date End Date Lovely Vicente MD PCP - General 04/16/15 [facility] [address] [place] [address] documented as of this encounter
--- OUTSIDE RECORDS SUMMARY | 2022-04-27 08:13 | XMS_ITS | Encounter Summary ---
:1945 [place] [address] Care Team Providers Name Role Phone Lovely Vicente MD Primary Care Provider Encounter Details Date Type Department Care Team Description 04/16/2021 Office Visit Cardiology at [facility] Liz Poole, Chronic systolic heart [facility] [place] [address] Cardiology Dept [phone] [place], [place] [address] Social History Tobacco Use Types [...] was feeling good. 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 07/07/2019 - 07/21/2019 Zio Patch Pen Maker The patient had a minimum heart [...] K+ 5.2 today 6. Post-op atrial fibrillation [id number] 7 (CHF, HTN, DM, vascular disease, thromboembolism) On warfarin - recent labile INR Will discuss with PCP, option of Luis Daniel 7. PAD 08/06/2017: Right 1st, 2nd, 3rd toe amputation 08/11/2017: Left??femoral arterial access, RLE??angiogram, Balloon angioplasty of R PT 10/25/2017: right popliteal-pedal bypass at [facility] 8. Hypothyrodism S/p thyroidectomy for [...] Cardiology Zulma Dolan MD [facility] [place], [place] [address] (Wo rk) 05/28/2022 Laboratory Appointment Lab 05/28/2022 Office Visit Cardiology Zulma Dolan MD [facility] [address] Liz Poole PA [facility] [place] [address] 06/10/2022 Office Visit Dermatology Laura Scherer MD [facility] [address] [place], [place] [address] (Wo rk) documented as of this encounter Results (ABNORMAL) Basic Metabolic Panel (non-fasting) (04/16/2021 9:58 AM EDT) athologist Signature Glucose Lvl 77 65 - 199 [facility] mg/dL [facility] Comment: Diabetes: [...] Organization Address City/State/[place] [address] (ABNORMAL) pro-Brain Natriuretic Peptide [...] Organization Address City/State/[place] [address] documented in this encounter Visit Diagnoses Diagnosis Chronic systolic heart failure documented in this encounter Care Teams Stockbroking Dealer Relationship Specialty Start Date End Date Lovely Vicente MD PCP - General 04/16/[address] [place] [address] documented as of this encounter
--- OUTSIDE RECORDS SUMMARY | 2022-04-27 08:13 | XMS_ITS | Encounter Summary ---
:1945 [place] [address] Care Team Providers Name Role Phone Lovely Vicente MD Primary Care Provider Encounter Details Date Type Department Care Team Description 08/15/2018 [facility] [place] [address] Social History Tobacco Use Types Packs/Day [...] Dolan MD [facility] er [place], [place] [address] (Wo rk) 05/28/2022 Laboratory Appointment Lab 05/28/2022 Office Visit Cardiology Zulma Dolan MD [facility] [place] [address] Liz Poole PA [facility] [place] [address] 06/10/2022 Office Visit Dermatology Laura Scherer MD [facility] ER DR [address] [place], [place] [address] (Wo rk) documented as [...] 12.5 [facility] LABORATORY INR 2.1 [facility] LABORATORY [...] Organization Address City/State/[place] [address] documented in this encounter Visit Diagnoses Not on filedocumented in this encounter Care Teams Thermograph Operator Relationship Specialty Start Date End Date Lovely Vicente MD PCP - General 04/16/[address] [place] [address] documented as of this encounter
--- OUTSIDE RECORDS SUMMARY | 2022-04-27 08:13 | XMS_ITS | Encounter Summary ---
:1945 Author Organization [facility] [place] [address] Care Team Providers Name Role Phone Lovely Vicente MD Primary Care Provider Encounter Details Date Type Department Care Team Description 03/20/2021 Ancillary Procedure Radiology Library [place] [address] [place] [address] [phone] Social History Tobacco Use Types Packs/Day Years [...] MD [facility] er [place], [place] [address] (Wo rk) 05/28/2022 Laboratory Appointment Lab 05/28/2022 Office Visit Cardiology Zulma Dolan MD [facility] [place] [address] Liz Poole PA [facility] [place] [address] 06/10/2022 Office Visit Dermatology Laura Scherer MD [facility] ER [address] [place], [place] [address] (Wo rk) documented as of [...] Organization Address City/State/ZIP Code Phon e Number [place], [place] documented in this encounter Visit Diagnoses Not on filedocumented in this encounter Care Teams Access Database Developer Relationship Specialty Start Date End Date Lovely Vicente MD PCP - General 04/16/[address] [place] [address] documented as of this encounter
--- OUTSIDE RECORDS SUMMARY | 2022-04-27 08:13 | XMS_ITS | Encounter Summary ---
:1945 Author Organization [place] [address] Care Team Providers Name Role Phone Lovely Vicente MD Primary Care Provider Reason for Visit Reason Comments Establish Care Atrial Fibrillation Congestive Heart Failure Cardiomyopathy Encounter Details Date Type Department Care Team Description 09/06/2019 [facility]schem[facility] Osvaldo STRANGE [address] [place], [place] CARDIOLOGY DEPT. [address] [place] [address] [phone] Social History Tobacco Use Types Packs/Day Years [...] today For any questions, call my office: [phone] To access your health care information, go to the web at: [email or web address] (you will need to register) For educational materials: [email or web address] Karel TRAMMELL.[facility], Clinical Cardiac Electrophysiology, [facility], [facility] A Healthy Heart: After Your Visit [...] least 2 servings of fish a week. [place], mackerel, mcfadden, sardines, and chunk light tuna [...] irregular heartbeat. After you call 911, the stem processing machine operator may tell you to chew [...] more? Visit our health information library at [email or web address], [email or web address] [email or web address]. You can also view health information on [employer], your personal patient account. Log in or sign up today. Enter F075 in the search box to learn more about A Healthy Heart: After Your Visit. ?? [phone] [employer] documented in this encounter Progress Notes Karel Mcelroy MD - 09/06/2019 2:20 PM EST Images from the original note were not included. Section of Cardiology/Cardiac Electrophysiology [facility] Clinical Cardiac Electrophysiology Consult Patient ID Don Fatima 1945 [id number] Don Fatima is referred to the EP clinic by Danette Maxwlel APRN PhD Chief Complaint Dyspnea on exertion Ischemic cardiomyopathy History This is a 74 y.o. male following up/being seen in clinic for evaluation for ongoing anticoagulation. He has a Qrgvh2Oxph score of ~ 6-7. 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 [place], [place] [address] (Wo rk) 05/28/2022 Laboratory Appointment Lab 05/28/2022 Office Visit Cardiology Zulma Dolan MD [facility] [place] [address] Liz Poole PA [facility] [place] [address] 06/10/2022 Office Visit Dermatology Laura Scherer MD [facility] [address] [place], [place] [address] (Wo rk) documented as of [...] 446 ms MUSE SYSTEM (Bezet) Calculated P Ogden 37 degrees MUSE SYSTEM Calculated R Ogden -23 degrees MUSE SYSTEM Calculated T Og[place] 116 degrees MUSE SYSTEM INTERPRETATION Normal sinus rhythm MUSE SYSTEM Inferior infarct (cited on or before 25-JAN-2013) ST & T wave abnormality, consider anterolateral ischemia Abnormal ECG When compared with ECG of 19-AUG-2017 10:23, No significant change was found Confirmed by MD Cande, Michael ([id number]) on 09/08/2019 10:22:4 7 AM Specimen Anatomical [...] disease documented in this encounter Care Teams Anatomic Pathologist Relationship Specialty Start Date End Date Lovely Vicente MD PCP - General 04/16/[address] [place] [address] documented as of this encounter
--- OUTSIDE RECORDS SUMMARY | 2022-04-27 08:13 | XMS_ITS | Encounter Summary ---
:1945 [place] [address] Care Team Providers Name Role Phone Lovely Vicente MD Primary Care Provider Encounter Details Date Type Department Care Team Description 07/12/2019 Office Visit Dermatology at [facility], Rigoberto Yarbrough (actinic keratosis); MD SHAY Quick III (seborrheic keratosis); [address] [facility] Multiple benign nevi; [place] [address] History of melanoma [phone] [facility] [place], [place] [address] Social History Tobacco Use Types [...] Zulma Dolan MD [facility] [address] [place], [place] [address] (Wo rk) 05/28/2022 Laboratory Appointment Lab 05/28/2022 Office Visit Cardiology Zulma Dolan MD [facility] [place] [address] Liz Poole PA [facility] [place] [address] 06/10/2022 Office Visit Dermatology Laura Scherer MD [facility] [address], [place] [address] (Wo rk) documented as of this encounter Visit Diagnoses Diagnosis AK (actinic keratosis) Actinic keratosis SK (seborrheic keratosis) Other seborrheic keratosis Multiple benign nevi Benign neoplasm of skin, site unspecifie d History of melanoma Personal history of malignant melanoma o f skin documented in this encounter Care Teams Recruitment And Outreach Assistant Relationship Specialty Start Date End Date Lovely Vicente MD PCP - General 04/16/[address] [facility] [address] [place] [address] documented as of this encounter
--- OUTSIDE RECORDS SUMMARY | 2022-04-27 08:13 | XMS_ITS | Encounter Summary ---
:1945 Author Organization [place] [address] Care Team Providers Name Role Phone Lovely Vicente MD Primary Care Provider Encounter Details Date Type Department Care Team Description 11/07/2019 TH Visit Cardiology at [facility] Danette Maxwell (arteriosclerotic heart disease); (TeleHealth) [facility] STACIE Gomes Cardiomyopathy, ischemic; Drive [facility] S/P CABG x 3; [place], [place] MARIA VICTORIA (obstructive sleep apnea) on CPAP [phone] CARDIOLOGY [phone] [place] [employer], [place] [address] Social History Tobacco Use Types [...] regurgitation present. 07/07/2019 - 07/21/2019 Zio Patch Adult Education Manager The patient had a minimum heart [...] at last check 6. Post-op atrial fibrillation [id number] (CHF, HTN, DM, vascular disease, thromboembolism) Amiodarone discontinued Continue coumadin INR managed by PCP 7. PAD 08/06/2017: Right 1st, 2nd, 3rd toe amputation 08/11/2017: Left??femoral arterial access, RLE??angiogram, Balloon angioplasty of R PT with Eleazar 2.5 x 80 10/25/2017: right popliteal-pedal bypass at [facility] Continue Coumadin 8. Hypothyrodism S/p thyroidectomy [...] Cardiology Zulma Dolan MD [facility] [place], [place] [address] (Wo rk) 05/28/2022 Laboratory Appointment Lab 05/28/2022 Office Visit Cardiology Zulma Dolan MD [facility] [place] [address] Liz Poole PA [facility] [place] [address] 06/10/2022 Office Visit Dermatology Laura Scherer MD [facility] [address] [place], [place] [address] (Wo rk) documented as of this encounter Visit Diagnoses Diagnosis ASHD (arteriosclerotic heart disease) Coronary atherosclerosis of unspecified type of vessel, [place] or graft Cardiomyopathy, ischemic Other specified forms of chronic ischemi c heart disease S/P CABG x 3 Postsurgical aortocoronary bypass status MARIA VICTORIA (obstructive sleep apnea) on CPAP Obstructive sleep apnea (adult) (pediatr ic) documented in this encounter Care Teams Lens Assorter Relationship Specialty Start Date End Date Lovely Vicente MD PCP - General 04/16/[address] [place], [place] [address] documented as of this encounter
--- OUTSIDE RECORDS SUMMARY | 2022-04-27 08:13 | XMS_ITS | Encounter Summary ---
:1945 Author Organization [facility] [place] [address] Care Team Providers Name Role Phone Lovely Vicente MD Primary Care Provider Encounter Details Date Type Department Care Team Description 08/26/2018 Transcribe Orders Laboratory Lovely Vicente, Deferred diagnosis [facility] on axis I [address] [address] [place], [place] [phone] Social History Tobacco Use Types Packs/Day Years [...] Zulma Dolan MD [facility] [address] [place], [place] [address] (Wo rk) 05/28/2022 Laboratory Appointment Lab 05/28/2022 Office Visit Cardiology Zulma Dolan [place] [facility] [place] [address] Liz Poole PA [facility] [place] [address] 06/10/2022 Office Visit Dermatology Laura Scherer MD [facility] [address] [place], [place] [address] (Wo rk) documented as of this encounter Visit Diagnoses Diagnosis Deferred diagnosis on axis I Other unknown and unspecified cause of m orbidity or mortality documented in this encounter Care Teams Car Repair Supervisor Relationship Specialty Start Date End Date Lovely Vicente MD PCP - General 04/16/[address] [facility] [address] [place] [address] documented as of this encounter
--- OUTSIDE RECORDS SUMMARY | 2022-04-27 08:13 | XMS_ITS | Encounter Summary ---
:1945 Author Organization [facility] [place] [address] Care Team Providers Name Role Phone Lovely Vicente MD Primary Care Provider Encounter Details Date Type Department Care Team Description 01/16/2019 Laboratory Appointment Lab [facility]L [facility] [place] [address] Social History Tobacco Use Types Packs/Day Years [...] Zulma Dolan MD [facility] [place] [address] [place], [place] [address] (Wo rk) 05/28/2022 Laboratory Appointment Lab 05/28/2022 Office Visit Cardiology Zulma Dolan MD [facility] [place] [address] Liz Poole PA [facility] [place] [address] 06/10/2022 Office Visit Dermatology Laura Scherer MD [facility] ER [address] [place], [place] [address] (Wo rk) documented as of [...] athologist Signature ProBNP 780 (H) <=125 pg/mL [facility] Specimen Anatomical Collection Method Collection Time Receive d Time (Source) Location / / Volume Laterality Blood specimen 01/16/2019 7:49 AM 019 7:55 (specimen) EDT AM EDT Resulting Agency Comment Spec In Lab Danette Maxwell APRN CHEMISTRY ORDERABLES Performing Organization Address City/State/[place] [address] (ABNORMAL) Basic Metabolic Panel (non-fasting) (01/16/2019 7:49 AM EDT) athologist Signature Glucose Lvl 105 65 - 199 [facility] mg/dL [facility] [...] of body mass or the acutely ill. http://[employer]/Worlizenkf eGFR 79 >=60 mL/min/1.73 m?? [facility] Comment: The eGFR was calculated using the CKD-EP I equation. As with all creatinine based estimates of kidney function, eGFR values calculated with the CKD-EPI equation are not accurate in patients wi th acute kidney failure, extremes of body mass or the acutely ill. http://[employer]kf Specimen Anatomical Collection Method Collection Time Receive d Time (Source) Location / / Volume Laterality Blood specimen 01/16/2019 7:49 AM 019 7:55 (specimen) EDT AM EDT Resulting Agency Comment Spec In Lab Danette Maxwell APRN CHEMISTRY ORDERABLES Performing Organization Address City/State/[place] [address] documented in this encounter Visit Diagnoses Diagnosis Chronic systolic heart failure documented in this encounter Care Teams Nib Inspector Relationship Specialty Start Date End Date Lovely Vicente MD PCP - General 04/16/[address] [place] [address] documented as of this encounter
--- OUTSIDE RECORDS SUMMARY | 2022-04-27 08:13 | XMS_ITS | Encounter Summary ---
:1945 Author Organization [facility] [place] [address] Care Team Providers Name Role Phone Lovely Vicente MD Primary Care Provider Reason for Referral Diagnostic Test (Routine) - Closed Specialty Diagnoses / Procedures Referred By Contact Refer red To Contact Cardiology Diagnoses Chronic systolic heart failure Danette Maxwell APRN [facility] Non-Inv Card Lab Procedures Echocardiogram Transthoracic(Leb) [facility] [place] [address] [place] [address] Referral ID Status Reason Start Date Expiration Date Visits V isits Requested Authorized [id number] Closed Specialty 07/17/2019 09/14/2019 1 1 Service Requested Reason for Visit Diagnostic Test (Routine) - Closed Specialty Diagnoses / Procedures Referred By Contact Refer red To Contact Cardiology Diagnoses Chronic systolic heart failure Danette Maxwell APRN [facility] Non-Inv Card Lab Procedures Echocardiogram Transthoracic(Leb) [facility] [place] [address] [place] [address] Referral ID Status Reason Start Date Expiration Date Visits V isits Requested Authorized [id number] Closed Specialty 07/17/2019 09/14/2019 1 1 Service Requested Encounter Details Date Type Department Care Team Description 07/28/2019 Hospital Encounter Non-Invasive Chronic s ystolic heart [place]iology [place] [address] Social History Tobacco Use Types Packs/Day [...] Zulma Dolan MD [facility] [address] [place], [place] [address] (Wo rk) 05/28/2022 Laboratory Appointment Lab 05/28/2022 Office Visit Cardiology Zulma Dolan MD [facility] [place] [address] Liz Poole PA [facility] [place] [address] 06/10/2022 Office Visit Dermatology Laura Scherer MD [facility] [address] [place], [place] [address] (Wo rk) documented as of [...] Mccollum ? (Age): 1945(74y) Med Rec#: ? [id number] ?Sex: ?M ? Site Loc: ? [facility] ?Ht / Wt: ??172(cm)/81(kg) Pt. Loc: ?Echo Lab ?BSA: ?1.94 Study Date: ?? 07/28/2019 ?Pt. Type: Outpatient Tape: ? Referring: MARY ELLEN Reading: Ifeanyi Truong ([id number]) Meter Reading Clerk: Fadumo Flanagan RDCS, FASE Diagnosis: *Chronic [...] E-wave Vmax ?1 ?m/sec ? MV deceleration nqfo615.5 ? msec ? MV A-wave Vmax ?1 [...] ? Mid-Inferior ?Hypokinetic ? Mid-Inferoseptal ?Normal ? Sanford-Septal ? Normal ? [facility]ford-Anterior ? Hypokinetic ? Sanford-Lateral ?Normal ? Sanford-Inferior ? Akinetic ? Sanford-Tip ?Hypokinetic ? This report has been electronically sign ed by: _ Ifeanyi Truong M.D. ? 07/28/2019 0 8:38:01 Images reviewed and interpretation verif ied [facility] Cardiac Ultrasound Laboratory Procedure Note Ifeanyi Truong MD - 07/28/2019Formatt ing of this note might be different from the original. Procedure: Transthoracic Echocardiogram Patient: NATALYA MCBRIDE(Age): [birth year]74y) Med Rec#: [id number] Sex: M Site Loc: [facility] Ht / Wt: 172(cm)/81(kg) Pt. Loc: Echo Lab BSA: 1.94 Study Date: 07/28/2019 Pt. Type: Outpati ent Tape: Referring: MARY ELLEN Reading: Ifeanyi Truong ([id number]) Meter Reading Clerk: Fadumo Flanagan NELSON, [facility] HOSPITALVeda [...] MV E-wave Vmax 1 m/sec MV deceleration pkdd797.5 msec MV A-wave Vmax 1 m/sec MV [...] Normal Mid-Posterolateral Normal Mid-Inferior Hypokinetic Mid-Inferoseptal Normal Sanford-Septal Normal Sanford-Anterior Hypokinetic Sanford-Lateral Normal Sanford-Inferior Akinetic Sanford-Tip Hypokinetic This report has been electronically sign ed by: _ Ifeanyi Truong M.D. 07/28/2019 08:38:0 1 Images reviewed and interpretation elvie hwang [facility] Cardiac Ultrasound Laboratory Danette A Hans QUINONES [...] Routine documented in this encounter Care Teams Sheet Metal Layout Mechanic Relationship Specialty Start Date End Date Lovely Vicente MD PCP - General 04/16/[address] [place] [address] documented as of this encounter
--- OUTSIDE RECORDS SUMMARY | 2022-04-27 08:13 | XMS_ITS | Encounter Summary ---
:1945 [place] [address] Care Team Providers Name Role Phone Lovely Vicente MD Primary Care Provider Reason for Visit Reason Comments Skin Cancer Examination Encounter Details Date Type Department Care Team Description 03/20/2021 Office Visit Dermatology at [facility] Brennen Rene MD History of melanoma; [facility] History of dysplastic nevus; [address] Multiple benign nevi; [place] [address] [facility] [place] (seborrheic keratosis); [phone] [address]-DERMATOLOGY [place] (actinic keratosis) [place], [place] [address] Social History Tobacco Use Types [...] no SOCIAL HISTORY 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 Last visit at [facility] Derm: 01/02/2020 Medications: Reviewed in eD-H Allergies: [...] FSE; history of Melanoma []Note routed to international logistics coordinator [x]Recall has been placed in scheduling system []Appointment scheduled at checkout Scribe attestation: Yoana Pang LPN has performed the documentation for this encounter in the presence of and acting as a scribe for LAURA RENE MD I performed the above scribed service and agree with the accuracy of the documentation in this encounter. Reviewed and signed by: LAURA RENE MD Dermatology [facility] documented in this encounter Plan of Treatment Upcoming Encounters Date Type Specialty Care Team Description 05/28/2022 Appointment Cardiology TrudiZulma Knowles MD [facility] [place], [place] [address] (Wo rk) 05/28/2022 Laboratory Appointment Lab 05/28/2022 Office Visit Cardiology Zulma Dolan MD [facility] [place] [address] Liz Poole PA [facility] [place] [address] 06/10/2022 Office Visit Dermatology Laura Rene MD [facility] [address] [place], [place] [address] (Wo rk) documented as of this encounter Visit Diagnoses Diagnosis History of melanoma Personal history of malignant melanoma o f skin History of dysplastic nevus Personal history of diseases of skin and subcutaneous tissue Multiple benign nevi Benign neoplasm of skin, site unspecifie d SK (seborrheic keratosis) Other seborrheic keratosis [place] (actinic keratosis) Actinic keratosis documented in this encounter Care Teams Engineer Fishing Vessel Relationship Specialty Start Date End Date Lovely Vicente MD PCP - General 04/16/[address] [place] [address] documented as of this encounter
--- OUTSIDE RECORDS SUMMARY | 2022-04-27 08:13 | XMS_ITS | Encounter Summary ---
:1945 Author Organization [facility] [place] [address] Care Team Providers Name Role Phone Lovely Vicente MD Primary Care Provider Reason for Visit Reason Onset Date Comments Other 03/24/2019 cardiac clearance ne eded Encounter Details Date Type Department Care Team Description 03/24/2019 Telephone Cardiology at [facility] Danette Maxwell, Other (cardiac [facility] LOAF COUNTER clearance needed) [place] [address] CARDIOLOGY [place], [place] [address] (Wo rk) Social History [...] AM EDT Leonela from [facility] [place] called requesting cardiac clearance for this patient who is to have a colonoscopy on 04/04/19. He is on anticoagulation and they will need to bridge him. Their phone # [phone], fax# [phone]. Thank you. documented in this encounter Plan of Treatment Upcoming Encounters Date Type Specialty Care Team Description 05/28/2022 Appointment Cardiology Zulma Dolan MD [facility] [place], [place] [address] (Wo rk) 05/28/2022 Laboratory Appointment Lab 05/28/2022 Office Visit Cardiology Zulma Dolan MD [facility] [place] [address] Liz Poole PA [facility] [place] [address] 06/10/2022 Office Visit Dermatology Laura Scherer MD [facility] [address] [place], [place] [address] (Wo rk) documented as of this encounter Visit Diagnoses Not on filedocumented in this encounter Care Teams Client Relationship Consultant Relationship Specialty Start Date End Date Lovely Vicente MD PCP - General 04/16/[address] [place] [address] documented as of this encounter
--- OUTSIDE RECORDS SUMMARY | 2022-04-27 08:13 | XMS_ITS | Encounter Summary ---
:1945 Author Organization [facility] [place] [place] [address] Care Team Providers Name Role Phone Lovely Vicente MD Primary Care Provider Reason for Visit Auth/Cert Specialty Diagnoses / Procedures Referred By Contact Refer red To Contact Diagnoses NSTEMI Procedures emerg ipi Referral ID Status Reason Start Date Expiration Date Visits Requ ested Visits Authorized [id number] 1 1 Encounter Details Date Type Department Care Team Description 12/10/2021 Surgery Personal Lines Sales Executive Asa Coulter MD CARDIAC CATHETERIZATION [facility] [address] Siddiqu[place] [address] [place] [address] [phone] (Wo rk) Social History Tobacco Use Types [...] were not included. Discharge Summary Patient Name: Dno Fatima Patient Age: 76 y.o. Language: German Race: White Ethnicity: Not nor Admit date: [...] Peter PA-C Kelly LaFlamme PA-C Cardiovascular Medicine [phone] Discharge Diagnoses (Hospital Problems) and Secondary Diagnoses [...] 3.75 guiding catheter and a 3.5 Fr [place] [facility] [place] 20 Mhz using Manual pullback. Imaging was successful. Image quality was good. The ostial LCX showed moderate diffuse atherosclerotic plaque with scattered three quadrant calcification. Measurements were performed after pre-dilation. Post Intervention: The stent was well expanded and apposed. Intravascular Ultrasound was performed in the distal LM using a 7 Fr EBU 3.75 guiding catheter and a 3.5 Fr [place] [facility] [place] 20 Mhz using Manual pullback. Imaging was successful. Image quality was good. The distal LM showed moderate diffuse atherosclerotic plaque. Post Intervention: The stent was well expanded and apposed. Indication for Intervention: Coronary intervention was indicated for primary therapy for an acute myocardial infarction. The priority for the procedure was Urgent. The [facility] indication for the procedure was NSTE-ACS. [...] congestion and cardiomegaly. ?? TTE from [facility] 12/08/21 ? Prior Cardiac Studies: [...] thyroidectomy in 2012 who presented to [facility] with 1 week progressing breathlessness [...] with Liz Poole PA-C. ?? At [facility], respiratory distress with hypoxia 86% [...] appointments: During 8am-5pm Wednesday through Wednesday call [phone] to speak with a nurse in the cardiology clinic All other times call [phone] and ask to speak to the demographer workers compensation claims supervisor. Return to work: One week Driving: No driving for 48 hours after catheterization. Follow up Appointments: PCP Lovely Vicente MD [phone] to see patient at the end of December for annual check up. Patient to see Dr. Lorenzana at 1120 am at December 19 for a post hospital check up. Thermometer Maker Dr. De Oliveira to see you in [facility]. Left a message for office to set a date and time. Please call [phone] Nobles to see the patient for a same day cath in 2-3 weeks from now. Office to call with a date and time. For questions please call [phone] Home oxygen therapy: N/A Arrangements for VNA/home care: none Future Appointments and Orders Future Orders Complete By Expires Basic Metabolic Panel (non-fasting) [LAB15 Custom] 12/19/2021 (Approximate) 12/12/2022 Process Instructions: INCLUDES: Calcium, BUN, Creat, GFR, Glucose, Lytes Scheduling Instructions: Comments: Questions: Referral to Cardiac Rehab [[id number] Custom] As directed Process Instructions: If no [...] appointments: During 8am-5pm Wednesday through Wednesday call [phone] to speak with a nurse in the cardiology clinic All other times call [phone] and ask to speak to the demographer workers compensation claims supervisor. Return to work: One week Driving: No driving for 48 hours after catheterization. Follow up Appointments: PCP Lovely Vicente MD [phone] to see patient at the end of December for annual check up. Patient to see Dr. Lorenzana at 1120 am at December 19 for a post hospital check up. Thermometer Maker Dr. De Oliveira to see you in [facility]. Left a message for office to set a date and time. Please call [phone] Nobles to see the patient for a same day cath in 2-3 weeks from now. Office to call with a date and time. For questions please call [phone] Home oxygen therapy: N/A Arrangements for VNA/home [...] Progress Note Patient Name: Don Fatima Service: STENCIL SPRAYER / PA Responsible Attending: Ifeanyi Truong MD [...] Lasix 80mg IV x1 in cath lab technologist. Tolerated procedure well. Home today at [...] vascular congestion and cardiomegaly. TTE from [facility] 12/08/21 Prior Cardiac Studies: TTE [...] with MD Janneth Neville PA 12/12/2021 Pager [phone] Associated attestation - Ifeanyi Truong MD - [...] [place] Endocrinology Diabetes Management Pager [phone] 20 minutes of this 35 minute visit [...] Progress Note Patient Name: Don Fatima Service: STENCIL SPRAYER / PA Responsible Attending: Iker Cuevas MD [...] Lasix 80mg IV x1 in cath lab technologist. Tolerated procedure well. Review of Systems: [...] Intake/Output Summary (Last 24 hours) at 12/11/2021 0903 Last data filed at 12/11/2021 0508 Gross [...] vascular congestion and cardiomegaly. TTE from [facility] 12/08/21 Prior Cardiac Studies: TTE [...] and answered his questions. Iker Cuevas MD [facility] Total time spent on review of records prior to visit, face to face time with patient during visit, documentation, and coordination of care with other clinicians: 25 minutes. . Iker Cuevas MD - 12/10/2021 12:30 PM EDT Images from the original note were not included. Inpatient Cardiology Progress Note Patient Name: Don Fatima Service: STENCIL SPRAYER / PA Responsible Attending: Iker Cuevas MD [...] Lasix 80mg IV x1 in cath lab technologist. Tolerated procedure well. Review of Systems: [...] TROPONINT 1.13* 0.92* 0.89* Pertinent Radiographic/Diagnostic Results: R/[facility] 12/10/21 Hemodynamics: Right Heart Pressures Resting: [...] vascular congestion and cardiomegaly. TTE from [facility] 12/08/21 Prior Cardiac Studies: TTE [...] Discussed with MD Migdalia Peter PA-C Pager #[phone] 12/10/2021 Cardiology Attending Note I have seen [...] updated and given pictures. Iker Cuevas MD [facility] Total time spent on review of records prior to visit, face to face time with patient during visit, documentation, and coordination of care with other clinicians: 35 minutes. Iker Cuevas MD - 12/09/2021 7:28 AM EDT Images from the original note were not included. Inpatient Cardiology Progress Note Patient Name: Don Fatima Service: STENCIL SPRAYER / PA Responsible Attending: Iker Cuevas MD [...] vascular congestion and cardiomegaly. TTE from [facility] 12/08/21 Prior Cardiac Studies: TTE [...] Discussed with MD Migdalia Peter PA-C Pager #[phone] 12/09/2021 Cardiology Attending Note I have seen and examined the patient. I agree with the findings above. Developed CHF early this am despite getting more iv lasix last evening. Feeling better now. INR > 2. Lungs still wet at base. Echo at [facility] showed EF 35% with mild mod MR slightly lower than last value here. -vit K 2.5 orally to facilitate correction of INR- this will take 12-24 hours to take effect -furosemide 80 mg iv now -postpone right and left heart cath until tomorrow given INR and ADHF -increase statin to achieve LDL < 70 -CPAP tonight Iker Taverass MD [facility] Total time spent on review of records [...] thyroidectomy in 2012 who presented to [facility] with 1 week progressing breathlessness [...] 03/2021 with Liz Poole PA-C. At [facility], respiratory distress with hypoxia 86% [...] 65 - 199 mg/dL Labs at [facility] 12/08/2021-troponin I 8004 (UN L [...] Monitor for ADRs. Trend troponins. Admission EKG. [facility] 12/09; consented. TTE. Telemetry monitoring, daily [...] code #Diet-carb control; n.p.o. after midnight for [facility] #DVT prophy- heparin infusion #GI prophy- PPI Discussed with MD Morgan Peter PA-C APP2 pager [phone] 12/08/2021 Cardiology Attending Note I have seen [...] is type 1 due to graft or lime coronary stenosis vs acute injury from CHF. 3. PAF: currrently in NSR. Have replaced warfarin with heparin 4. PAD: stable 5. DM: stable 6. CKD: will monitor and minimize contrast. Pt very appreciative of Dr. Yuan Retana's care in 2018. Will let him know patient is here. Iker Cuevas MD [facility] documented in this encounter Miscellaneous Notes Care [...] Type: *No Product type* / Secondary Insurance: [employer] [place] Prescription Coverage: Yes This plan was [...] cath without complications. Migdalia Parker PA-C Pager #[phone] 12/10/2021 Initial Assessments - Nick Georges RN [...] COVID test: Lab Results Component Value Date [id number] Not Detected 12/08/2021 Past medical History: Past [...] spouse would be surrogate decision maker per [place] surrogate decision making law. (Only good for 180 days) Any patient receiving care at [facility] must abide by [place] law. The hierarchy for surrogate decision making [...] - standard, cane - straight Home Address: [address] [place] [address] [place] [address] Social & Family Supports: All names listed below confirmed with patient as current and correct Extended Emergency Contact Information Primary Emergency Contact: Kisha Fatima Address: [address] [place] [address] [place] [address] [facility] Mobile Relation: Spouse Secondary Emergency Contact: Elba Swenson Address: [place], [place] [id number] [place] [address] Mobile Relation: Child Current Care Provided by: [...] Type: *No Product type* / Secondary Insurance: [facility] Prescription Coverage: Yes Preferred Pharmacy: [facility] [id number] - [place], [place] - [address] [address] [place] Status: Patient is a : unable to assess Primary Care Provider: Lovely Vicente MD [phone] Patient/Caregiver Goals of Treatment: Get out of here Potential Needs for Transition of Care: none Agency Referrals: none patient has used [facility] in the past Transportation: no concerns Transportation Anticipated: family or friend will provide Concerns to be Addressed: patient refuses services, discharge planning Assessment: Patient is admitted to [facility] Service pager [phone] for 76 y.o.??male??with h/o??CAD s/p 3vCABG (THOMPSON-LAD, [...] status on current unit. Nick Georges RN casino cage cashier, Office of Care Management Pager: [phone] Brief Op Note - Vitaliy Nobles MD - 12/10/2021 8:31 AM EDT Images from the original note were not included. [facility] [place] [address] [address] CORONARY ANGIOGRAM AND PERCUTANEOUS CORONARY INTERVENTION REPORT Patient: Don Fatima : 1945 MR number: [id number] Date of Service: 12/10/2021 Donor Services Manager: Vitaliy Nobles MD Fellow: [place] MD [...] of nursing home diabetes care. Diabetes History: Don Fatima has had diabetes for 10 years. He has been on insulin for the last several years andis managed by his PCP. Lives in [place], [place] with his . States that he [...] your patient Desirae Jett APRN Endocrinology Pager [phone] 70 minutes of this 80 minute visit [...] for further details. STEPHANIE Rebolledo 12/08/2021 Pager [phone] documented in this encounter Plan of Treatment Upcoming Encounters Date Type Specialty Care Team Description 05/28/2022 Appointment Cardiology Zulma Dolan MD [facility] [place], [place] [address] (Wo lissa) 05/28/2022 Laboratory Appointment Lab 05/28/2022 Office Visit Cardiology Zulma Dolan MD [facility] [address] Liz Poole PA [facility] [place] [address] 06/10/2022 Office Visit Dermatology Laura Scherer MD [facility] DR TEJA GR[facility]DER[facility] [place], [place] [address] (Wo rk) Scheduled Referrals Name [...] 215 (H) 65 - 199 [facility] mg/dL [facility] Comment: Supplemental ranges: <140 mg/dL before meals <180 mg/dL all other times of the day Specimen Anatomical Collection Method Collection Time Receive d Time (Source) Location / / Volume Laterality Blood 12/12/2021 7:42 AM 7:42 EDT AM EDT Ifeanyi Truong MD POINT OF CARE TEST ORDERABLE S Performing Organization Address City/State/[place] [address] (ABNORMAL) Differential, Automated (12/12/2021 4:51 AM EDT) athologist Signature Neutrophils % 75.4 % [facility] Neutr Abs (ANC) 5.95 1.70 - [facility] 6.10 [facility] x10(3)/[facility] LABORATORY Lymphocytes % 12.2 % [facility] Lymphocytes Abs 1.0 0.9 - 3.2 [facility] x10(3)/[facility] LABORATORY Monocytes % 9.5 % [facility] Monocyte Abs 0.8 0.3 - 0.9 [facility] x10(3)/[facility] LABORATORY Eosinophils % 1.8 % [facility] Eosinophils Abs 0.1 0.0 - 0.4 [facility] x10(3)/[facility] LABORATORY Basophils % 0.5 % [facility] Basophils Abs 0.0 0.0 - 0.1 [facility] x10(3)/[facility] LABORATORY [...] Address City/State/ZIP Code Phon e Number [address] (ABNORMAL) Hemogram (12/12/2021 4:51 AM EDT) Analysis Performed At Patho logist Time Signature WBC 7.9 4.0 - 9.5 [facility](3[facility] LABORATORY RBC 4.19 (L) 4.58 - [place] 5.54 [facility] x10(6)/[facility] LABORATORY Hemoglobin 12.1 (L) 13.7 - [place] 16.5 g/dL [facility] Hematocrit 36.7 (L) 40.5 - [facility] 48.5 % [facility] MCV 87.6 82.9 - [facility] 93.1 [facility] LABORATORY MCH 28.9 27.5 - [place] 32.1 pg [facility] MCHC 33.0 32.0 - [place] 35.7 g/dL [facility] Platelets 231 145 - 357 [facility] x10(3)/[facility] LABORATORY RDWSD 47.2 (H) 36.0 - [facility] RYAN 45.0 [facility] LABORATORY RDWCV 14.6 (H) 11.4 - [facility] RYAN 13.8 % [facility] MPV 9.5 7.6 - 12.9 [facility] RYAN [facility] LABORATORY nRBC % Auto 0.0 % [facility] nRBC Abs Auto 0.000 0.000 - [place] 0.000 [facility] x10(3)/[facility] LABORATORY Specimen Anatomical Collection Method Collection Time Receive d Time (Source) Location / / Volume Laterality Blood 12/12/2021 4:51 AM 2 5:06 EDT AM EDT Resulting Agency Comment Spec In Lab Bijan Sun MD HEMATOLOGY ORDERABLES Performing Organization Address City/[facility]/[place] [address] (ABNORMAL) Prothrombin Time (12/12/2021 4:51 AM EDT) athologist Signature PT 14.9 (H) 9.4 - 12.5 [facility] LABORATORY INR 1.3 [facility] [place] [...] Organization Address City/State/[place] [address] (ABNORMAL) BMP w/fasting Glucose (12/12/2021 4:51 AM EDT) athologist Signature Glucose 152 (H) 65 - 99 [facility] Fasting mg/dL [facility] Comment: ?Fasting* Glucose Interpretive C [...] of Diabetes Mellitus, Position Statement from the [place] [employer]. ??Diabete s Care, Volume 33, [...] Organization Address City/State/[place] [address] Magnesium (12/12/2021 4:51 AM EDT) athologist Signature Magnesium 1.02 0.69 - 1.07 [place] mmol/L [facility] Specimen Anatomical Collection Method Collection Time Receive d Time (Source) Location / / Volume Laterality Blood 12/12/2021 4:51 AM 2 5:06 EDT AM EDT Resulting Agency Comment Spec In Lab Iker Cuevas MD CHEMISTRY ORDERABLES Performing Organization Address City/[facility]/ZIP Code Phon e Number [address] POCT Glucose (12/12/2021 3:43 AM EDT) athologist Signature POC Glucose 138 65 - 199 [place] mg/dL [facility] Comment: Supplemental ranges: <140 mg/dL before meals <180 mg/dL all other times of the day Specimen Anatomical Collection Method Collection Time Receive d Time (Source) Location / / Volume Laterality Blood 12/12/2021 3:43 AM 2 3:43 EDT AM EDT Iker Cuevas MD POINT OF CARE TEST ORDERABLE S Performing Organization Address City/State/ZIP Code Phon e Number [address] POCT Glucose (12/11/2021 11:44 PM EDT) athologist Signature POC Glucose 124 65 - 199 [place] mg/dL [facility] Comment: Supplemental ranges: <140 mg/dL before meals <180 mg/dL all other times of the day Specimen Anatomical Collection Method Collection Time Receive d Time (Source) Location / / Volume Laterality Blood 12/11/2021 11:44 12/11/2021 PM EDT 11:44 PM EDT Iker Cuevas MD POINT OF CARE TEST ORDERABLE S Performing Organization Address City/State/ZIP Code Phon e Number [address] (ABNORMAL) POCT Glucose (12/11/2021 8:12 PM EDT) athologist Signature POC Glucose 200 (H) 65 - 199 [place] mg/dL [facility] Comment: Supplemental ranges: <140 mg/dL before meals <180 mg/dL all other times of the day Specimen Anatomical Collection Method Collection Time Receive d Time (Source) Location / / Volume Laterality Blood 12/11/2021 8:12 PM 2 8:12 EDT PM EDT Iker Cuevas MD POINT OF CARE TEST ORDERABLE S Performing Organization Address City/State/[place] [address] (ABNORMAL) POCT Glucose (12/11/2021 6:50 PM EDT) P athologist Signature POC Glucose 245 (H) 65 - 199 [place] mg/dL [facility] Comment: Supplemental ranges: <140 mg/dL before meals <180 mg/dL all other times of the day Specimen Anatomical Collection Method Collection Time Receive d Time (Source) Location / / Volume Laterality Blood 12/11/2021 6:50 PM 2 6:50 EDT PM EDT Iker Cuevas MD POINT OF CARE TEST ORDERMATTHEW S Performing Organization Address City/State/[place] [address] (ABNORMAL) POCT Glucose (12/11/2021 4:00 PM EDT) P athologist Signature POC Glucose 383 (H) 65 - 199 [facility] RYAN mg/dL [facility] Comment: Supplemental ranges: <140 mg/dL before meals <180 mg/dL all other times of the day Specimen Anatomical Collection Method Collection Time Receive d Time (Source) Location / / Volume Laterality Blood 12/11/2021 4:00 PM 2 4:00 EDT PM EDT Iker Cuevas MD POINT OF CARE TEST ORDERABLE S Performing Organization Address City/State/[place] [address] (ABNORMAL) POCT Glucose (12/11/2021 12:01 PM EDT) P athologist Signature POC Glucose 342 (H) 65 - 199 [place] mg/dL [facility] Comment: Supplemental ranges: <140 mg/dL before meals <180 mg/dL all other times of the day Specimen Anatomical Collection Method Collection Time Receive d Time (Source) Location / / Volume Laterality Blood 12/11/2021 12:01 12/11/2021 PM EDT 12:01 PM EDT Iker Cuevas MD POINT OF CARE TEST ORDERABLE S Performing Organization Address City/State/ZIP [place] [address] COVID-19 PCR (12/11/2021 10:13 AM EDT) [facility] Method Time Signature SARS-CoV-2 Not Detected Not Detected [place] RNA [facility] Comment: This result should [...] diagnosis of COVID-19 is performed using the [employer] RONNA S-CoV-2 Assay as authorized by the FDA Emergency Use Authorization (EUA). This EUA assay is intended for In-vitro Diagnostic (IVD) use with respiratory sp ecimens such as nasopharyngeal swabs collected from individuals during the ac citizen [place] phase of infection. This assay is performed based on the instructions for use provided by [employer] and additional guidance provided by CDC [...] is infected. As required or requested by [facility], positive specimens may be sent for [...] clinical management guidance information are available at [facility] CDC Coronavirus Disease 2019 (COVID-19) webpage under Information fo r Healthcare Professionals (https://www.cdc.gov/coronavirus/2019-nc ov/hcp/index.html) Additional information about this and ot her EUA tests can be found in provider and patient fact sheets at the following FDA website: https://www.fda.gov/medical-devices/qksfragpahj-pzhwtur-5306-befse-62-gzsgjapnu- wxf-grqucqnvbukfzz-swnkbdb-devices/xypqn-xvfsvaxogjj-ikzi SARS-Cov-2 RNA Source STENCIL SPRAYER Swab [facility] Specimen (Source) Anatomical Collection Method Collection Time Re ceived Time Location / / Volume Laterality Nasopharyngeal Swab 12/11/2021 10:13 11/23 AM EDT 11:16 AM EDT Comment: Symptoms->Surveillance Resulting Agency Comment Spec In Lab Iker Cuevas MD MICROBIOLOGY - GENERAL ORDER [place] Performing Organization Address City/State/[place] [address] POCT Glucose (12/11/2021 7:34 AM EDT) P athologist Signature POC Glucose 198 65 - 199 [facility] mg/dL [facility] Comment: Supplemental ranges: <140 mg/dL before meals <180 mg/dL all other times of the day Specimen Anatomical Collection Method Collection Time Receive d Time (Source) Location / / Volume Laterality Blood 12/11/2021 7:34 AM 2 7:34 EDT AM EDT Iker Cuevas MD POINT OF CARE TEST ORDERABLE S Performing Organization Address City/State/[place] [address] (ABNORMAL) POCT Glucose (12/11/2021 5:07 AM EDT) P athologist Signature POC Glucose 208 (H) 65 - 199 [facility] mg/dL [facility] Comment: Supplemental ranges: <140 mg/dL before meals <180 mg/dL all other times of the day Specimen Anatomical Collection Method Collection Time Receive d Time (Source) Location / / Volume Laterality Blood 12/11/2021 5:07 AM 2 5:07 EDT AM EDT Iker Cuevas MD POINT OF CARE TEST ORDERABLE S Performing Organization Address City/State/[place] [address] (ABNORMAL) Differential, Automated (12/11/2021 4:28 AM EDT) Patholo gist Method Time Signature Neutrophils % 79.6 % [facility] Neutr Abs (ANC) 7.01 (H) 1.70 - [facility] 6.10 [facility] x10(3)/[facility] LABORATORY Lymphocytes % 9.1 % [facility] Lymphocytes Abs 0.8 (L) 0.9 - 3.2 [facility] x10(3)/[facility] LABORATORY Monocytes % 9.2 % [facility] Monocyte Abs 0.8 0.3 - 0.9 [facility] x10(3)/[facility] LABORATORY Eosinophils % 1.3 % [facility] Eosinophils Abs 0.1 0.0 - 0.4 [facility] x10(3)/[facility] [facility] LABORATORY Basophils % 0.5 % [facility] LABORATORY Basophils Abs 0.0 0.0 - 0.1 [facility] x10(3)/[facility] LABORATORY Immature Gran % 0.30 [...] Melisa Gran Abs 0.03 0.00 - 0.04 x10(3)/[facility] LABORATORY Specimen Anatomical Collection Method Collection Time Receive d Time (Source) Location / / Volume Laterality Blood 12/11/2021 4:28 AM 4:37 EDT AM EDT Resulting Agency Comment Spec In Lab Bijan Sun MD HEMATOLOGY ORDERABLES Performing Organization Address City/State/ZIP Code Phon e Number [place] [id number]OSP[address] LAB[address]ATORY Drive (ABNORMAL) Hemogram (12/11/2021 4:28 AM EDT) Analysis Performed At Patho logist Time Signature WBC 8.8 4.0 - 9.5 [facility] x10(3)/[facility] LABORATORY RBC 4.15 (L) 4.58 - [place] RYAN 5.54 [facility] x10(6)/[facility] LABORATORY Hemoglobin 11.9 (L) 13.7 - [facility] g/dL [facility] LABORATORY Hematocrit 36.9 (L) 40.5 - [facility] RYAN 48.5 % [facility] LABORATORY MCV 88.9 82.9 - [facility] RYAN 93.1 [facility] LABORATORY MCH 28.7 27.5 - [place] R[place]AN 32.1 pg [facility] LABORATORY MCHC 32.2 32.0 - [facility] 35.7 g/dL [facility] LABORATORY Platelets 211 145 - 357 [facility] x10(3)/[facility] LABORATORY RDWSD 48.3 (H) 36.0 - [facility] RYAN 45.0 [facility] LABORATORY RDWCV 14.8 (H) 11.4 - [facility] RYAN 13.8 % [facility] LABORATORY MPV 9.6 7.6 - 12.9 [facility] LABORATORY nRBC % Auto 0.0 % [facility] LABORATORY nRBC Abs Auto 0.000 0.000 - [facility] 0.000 [facility] x10(3)/[facility] LABORATORY Specimen Anatomical Collection Method Collection Time Receive d Time (Source) Location / / Volume Laterality Blood 12/11/2021 4:28 AM 2 4:37 EDT AM EDT Resulting Agency Comment Spec In Lab Bijan Sun MD HEMATOLOGY ORDERABLES Performing Organization Address City/[facility]/ZIP [facility] [place] [address] (ABNORMAL) Prothrombin Time (12/11/2021 4:28 AM EDT) P athologist Signature PT 17.7 (H) 9.4 - 12.5 [facility] LABORATORY INR 1.6 [facility] [place] [...] City/[facility]/ZIP [place] [address] (ABNORMAL) BMP w/fasting Glucose (12/11/2021 4:28 AM EDT) P athologist Signature Glucose 207 (H) 65 - 99 [facility] Fasting mg/dL [facility] LABORATORY Comment: ?Fasting* Glucose Interpretive C [...] of Diabetes Mellitus, Position Statement from the [place] [employer]. ??Diabete s Care, Volume 33, [...] City/[facility]/[place] [address] Magnesium (12/11/2021 4:28 AM EDT) athologist Signature Magnesium 1.04 0.69 - 1.07 [facility] mmol/L [facility] LABORATORY Specimen Anatomical Collection Method Collection Time Receive d Time (Source) Location / / Volume Laterality Blood 12/11/2021 4:28 AM 2 4:37 EDT AM EDT Resulting Agency Comment Spec In Lab Iker Cuevas MD CHEMISTRY ORDERABLES Performing Organization Address City/[facility]/ZIP Code Phon e Number [address] POCT Glucose (12/11/2021 3:58 AM EDT) athologist Signature POC Glucose 189 65 - 199 [place] mg/dL [facility] LABORATORY Comment: Supplemental ranges: <140 mg/dL before meals <180 mg/dL all other times of the day Specimen Anatomical Collection Method Collection Time Receive d Time (Source) Location / / Volume Laterality Blood 12/11/2021 3:58 AM 2 3:58 EDT AM EDT Iker Cuevas MD POINT OF CARE TEST ORDERABLE S Performing Organization Address City/[facility]/[place] [address] (ABNORMAL) POCT Glucose (12/10/2021 11:45 PM EDT) athologist Signature POC Glucose 205 (H) 65 - 199 [place] [facility] mg/dL [facility] LABORATORY Comment: Supplemental ranges: <140 mg/dL before meals <180 mg/dL all other times of the day Specimen Anatomical Collection Method Collection Time Receive d Time (Source) Location / / Volume Laterality Blood 12/10/2021 11:45 12/10/2021 PM EDT 11:45 PM EDT Iker Cuevas MD POINT OF CARE TEST ORDERABLE S Performing Organization Address City/[facility]/[place] [address] (ABNORMAL) POCT Glucose (12/10/2021 7:54 PM EDT) athologist Signature POC Glucose 225 (H) 65 - 199 [facility]/dL [facility] LABORATORY Comment: Supplemental ranges: <140 mg/dL before meals <180 mg/dL all other times of the day Specimen Anatomical Collection Method Collection Time Receive d Time (Source) Location / / Volume Laterality Blood 12/10/2021 7:54 PM 2 7:54 EDT PM EDT Iker Cuevas MD POINT OF CARE TEST ORDERABLE S Performing Organization Address City/[facility]/[place] [address] Potassium (12/10/2021 7:46 PM EDT) athologist [facility] Potassium 4.2 3.5 - 5.0 [facility] mmol/L [facility] LABORATORY Comment: Please note: ??Patients with [...] ORDERABLES Performing Organization Address City/[facility]/ZIP [facility] [place] [address] (ABNORMAL) Basic Metabolic Panel (non-fasting) (12/10/2021 6:12 PM EDT) athologist Signature Glucose Lvl 246 (H) 65 - 199 [facility] mg/dL [facility] [...] Address City/State/ZIP Code Phon e Number [address] POCT Glucose (12/10/2021 4:59 PM EDT) P athologist Signature POC Glucose 158 65 - 199 [facility] mg/dL [facility] LABORATORY Comment: Supplemental ranges: <140 mg/dL before meals <180 mg/dL all other times of the day Specimen Anatomical Collection Method Collection Time Receive d Time (Source) Location / / Volume Laterality Blood 12/10/2021 4:59 PM 2 4:59 EDT PM EDT Iker Cuevas MD POINT OF CARE TEST ORDERABLE S Performing Organization Address City/State/[place] [address] (ABNORMAL) POCT Glucose (12/10/2021 12:43 PM EDT) P athologist Signature POC Glucose 241 (H) 65 - 199 [facility] mg/dL [facility] LABORATORY Comment: Supplemental ranges: <140 mg/dL before meals <180 mg/dL all other times of the day Specimen Anatomical Collection Method Collection Time Receive d Time (Source) Location / / Volume Laterality Blood 12/10/2021 12:43 12/10/2021 PM EDT 12:43 PM EDT Iker Cuevas MD POINT OF CARE TEST ORDERABLE S Performing Organization Address City/State/[place] [address] EKG 12 Lead (12/10/2021 11:17 AM EDT) Component Value Ref Range Test Analysis Performed Pathologis t Method Time At Signature Ventricular rate 62 BPM MUSE SYSTEM Atrial Rate 62 BPM MUSE SYSTEM P-R Interval 142 ms MUSE SYSTEM QRS Duration 100 ms MUSE SYSTEM Q-T Interval 434 ms MUSE SYSTEM QTC Calculated 440 ms MUSE SYSTEM (Bezet) Calculated P [place] 34 degrees MUSE SYSTEM Calculated R [place] -39 degrees MUSE SYSTEM Calculated T [place] 92 degrees MUSE SYSTEM INTERPRETATION Normal sinus rhythm MUSE SYSTEM Left axis deviation Minimal voltage criteria for LVH, may be normal variant ( [place] product ) Cannot rule out Inferior infarct [...] Laterality Volume Narrative 12/10/2021 12:04 PM EDT ?[facility] ? Cardiac Cathete rization/Intervention Report ? Patient Name: Don FatimaMadiha ? Procedure Date: 12/10/2021 ? A #: [id number] ? Primary Physician: Nobles, Vitaliy P ? Case #: [id number] ? File Name: [id number] ? Catheterization Order Number: [id number] ? [facility] [facility] ? Final Report [place], [place] ? Patient Name: ? Don E. Stewa rt ? ID#: ?[id number] ? : ?1945 ? Procedure Date: ? [...] Urgent. The indication for ?the cath lab technologist visit is ACS great er than [...] ?3.75 guiding catheter and a 3.5 Fr [facility] [place] 20 Mhz using Manual ?pullback. ??Imaging was [...] ?3.75 guiding catheter and a 3.5 Fr [facility] [place] 20 Mhz using Manual ?pullback. ??Imaging was [...] Procedure Note Vitaliy Nobles MD - 01/14/2022 [facility] Cardiac Catheterization/Intervention Re port Patient Name: Don Fatima Procedure Date: 12/10/2021 A #: [id number] Primary Physician: Vitaliy Nobles Case #: [id number] File Name: [id number] Catheterization Order Number: [id number] [facility] [employer] [facility] Final Report [place], [place] Patient Name: Don Fatima ID#: [...] Urgent. The indication for the cath lab technologist visit is ACS greater than 24 [...] a 3.5 Fr [facility] [place] 20 Mhz using Manual pullback. Imaging was [...] a 3.5 Fr [facility] [place] 20 Mhz using Manual pullback. Imaging was [...] require modification of this regimen. Consult [facility] Interventional [facility]iology for questions. The 1 year [...] 262 (H) 65 - 199 [facility] mg/dL [facility] LABORATORY Comment: Supplemental ranges: <140 mg/dL before meals <180 mg/dL all other times of the day Specimen Anatomical Collection Method Collection Time Receive d Time (Source) Location / / Volume Laterality Blood 12/10/2021 10:30 12/10/2021 AM EDT 10:30 AM EDT Iker Cuevas MD POINT OF CARE TEST ORDERABLE S Performing Organization Address City/State/[place] [address] (ABNORMAL) POCT Glucose (12/10/2021 9:48 AM EDT) athologist Signature POC Glucose 279 (H) 65 - 199 [place] mg/dL [facility] LABORATORY Comment: Supplemental ranges: <140 mg/dL before meals <180 mg/dL all other times of the day Specimen Anatomical Collection Method Collection Time Receive d Time (Source) Location / / Volume Laterality Blood 12/10/2021 9:48 AM 2 9:48 EDT AM EDT Iker Cuevas MD POINT OF CARE TEST ORDERABLE S Performing Organization Address City/[facility]/[place] [address] (ABNORMAL) POCT Glucose (12/10/2021 9:07 AM EDT) P athologist Signature POC Glucose 268 (H) 65 - 199 [place] mg/dL [facility] LABORATORY Comment: Supplemental ranges: <140 mg/dL before meals <180 mg/dL all other times of the day Specimen Anatomical Collection Method Collection Time Receive d Time (Source) Location / / Volume Laterality Blood 12/10/2021 9:07 AM 2 9:07 EDT AM EDT Iker Cuevas MD POINT OF CARE TEST ORDERABLE S Performing Organization Address City/State/[place] [address] (ABNORMAL) Point of Care Blood Gas Historical (12/10/2021 9:04 AM EDT) [facility] Method Time Signature POC pH 7.40 7.35 - [place] 7.45 [facility] LABORATORY POC PCO2 40 35 - 45 [facility] LABORATORY POC PO2 63 (L) 85 - 104 [facility] LABORATORY POC Base Excess 0.0 -3.0 - [address].0 [facility] K mmol/L [facility] LABORATORY POC HCO3 24.8 20.0 - [facility] 26.0 [facility] mmolLDS HOSPITAL LABORATORY POC Sodium 143 135 - 145 [facility] mmol/L [facility] LABORATORY POC Potassium 3.7 3.5 - 5.0 [facility] mmol/L [facility] LABORATORY POC Ionized Ca 1.07 (L) 1.15 - [facility] 1.33 [facility] mmolLDS HOSPITAL LABORATORY POC Hematocrit 30.0 (L) 40.0 - [facility] 51.0 % [facility] POC Calc Hgb 10.2 (L) 13.7 - [facility] 17.5 g/dL [facility] LABORATORY Comment: The calculation of hemoglobin f rom hematocrit assumes a normal MCHC. POC Bgas Loc CC LAB [facility] LABORATORY Specimen Anatomical Collection Method Collection Time Receive d Time (Source) Location / / Volume Laterality Blood 12/10/2021 9:04 AM 2 EDT 12:00 PM EDT Ifeanyi Truong MD CHEMISTRY ORDERABLES Performing Organization Address City/State/[place] [address] (ABNORMAL) POCT Glucose (12/10/2021 7:19 AM EDT) P athologist Signature POC Glucose 274 (H) 65 - 199 [facility] mg/dL [facility] LABORATORY Comment: Supplemental ranges: <140 mg/dL before meals <180 mg/dL all other times of the day Specimen Anatomical Collection Method Collection Time Receive d Time (Source) Location / / Volume Laterality Blood 12/10/2021 7:19 AM 2 7:19 EDT AM EDT Iker Cuevas MD POINT OF CARE TEST ORDERABLE S Performing Organization Address City/State/[place] [address] Heparin (unfractionated) Level (12/10/2021 [...] City/State/ZIP Code Phon e Number [place] [id number]OS[address] (ABNORMAL) Differential, Automated (12/10/2021 4:25 AM EDT) Patholo gist Method Time Signature Neutrophils % 79.8 % [facility] LABORATORY Neutr Abs (ANC) 7.47 (H) 1.70 - [facility] 6.10 [facility] x10(3)/[facility] LABORATORY Lymphocytes % 10.6 % [facility] LABORATORY Lymphocytes Abs 1.0 0.9 - 3.2 [facility] x10(3)/[facility] LABORATORY Monocytes % 8.4 % [facility] LABORATORY Monocyte Abs 0.8 0.3 - 0.9 [facility] x10(3)/[facility] LABORATORY Eosinophils % 0.6 % [facility] LABORATORY Eosinophils Abs 0.1 0.0 - 0.4 [facility] x10(3)/[facility] LABORATORY Basophils % 0.2 % [facility] LABORATORY Basophils Abs 0.0 0.0 - 0.1 [facility] x10(3)/[facility] LABORATORY [...] Melisa Gran Abs 0.04 0.00 - 0.04 x10(3)/[facility] LABORATORY Specimen Anatomical Collection Method Collection Time Receive d Time (Source) Location / / Volume Laterality Blood 12/10/2021 4:25 AM 4:34 EDT AM EDT Resulting Agency Comment Spec In Lab Morgan BROWN HEMATOLOGY ORDERABLES Performing Organization Address City/State/[place] [address] (ABNORMAL) Hemogram (12/10/2021 4:25 AM EDT) Analysis Performed At Patho logist Time Signature WBC 9.4 4.0 - 9.5 [facility] x10(3)/[facility] LABORATORY RBC 3.81 (L) 4.58 - [facility] 5.54 [facility] x10(6)/[facility] LABORATORY Hemoglobin 11.1 (L) 13.7 - [facility] 16.5 g/dL [facility] LABORATORY Hematocrit 34.0 (L) 40.5 - [facility] 48.5 % [facility] LAB[facility]ATORY MCV 89.2 82.9 - [facility] 93.1 [facility] LABORATORY MCH 29.1 27.5 - [facility] 32.1 pg [facility] LABORATORY MCHC 32.6 32.0 - [facility] 35.7 g/dL [facility] LABORATORY Platelets 183 145 - 357 [facility] x10(3)/[facility] LABORATORY RDWSD 49.9 (H) 36.0 - [facility] RYAN 45.0 [facility] LABORATORY RDWCV 15.2 (H) 11.4 - [facility] 13.8 % [facility] LABORATORY MPV 9.8 7.6 - 12.9 [facility] LABORATORY nRBC % Auto 0.0 % [facility] LABORATORY nRBC Abs Auto 0.000 0.000 - [place] DAVIS 0.000 [facility] x10(3)/[facility] LABORATORY Specimen Anatomical Collection Method Collection Time Receive d Time (Source) Location / / Volume Laterality Blood 12/10/2021 4:25 AM 2 4:34 EDT AM EDT Resulting Agency Comment Spec In Lab Morgan BROWN HEMATOLOGY ORDERABLES Performing Organization Address City/[facility]/ZIP Code Phon e Number [address] (ABNORMAL) Prothrombin Time (12/10/2021 4:25 AM EDT) P athologist Signature PT 20.0 (H) 9.4 - 12.5 [facility] LABORATORY INR 1.7 [facility] [place] [...] City/[facility]/[place] [address] (ABNORMAL) BMP w/fasting Glucose (12/10/2021 4:25 AM EDT) P athologist Signature Glucose 210 (H) 65 - 99 [facility] Fasting mg/dL [facility] LABORATORY Comment: ?Fasting* Glucose Interpretive C [...] of Diabetes Mellitus, Position Statement from the [place] [employer]. ??Diabete s Care, Volume 33, [...] Organization Address City/State/[place] [address] Magnesium (12/10/2021 4:25 AM EDT) athologist Signature Magnesium 0.95 0.69 - 1.07 [place] mmol/L [facility] LABORATORY Specimen Anatomical Collection Method Collection Time Receive d Time (Source) Location / / Volume Laterality Blood 12/10/2021 4:25 AM 2 4:34 EDT AM EDT Resulting Agency Comment Spec In Lab Iker Cuevas MD CHEMISTRY ORDERABLES Performing Organization Address City/[facility]/[place] [address] POCT Glucose (12/10/2021 1:58 AM EDT) athologist Signature POC Glucose 164 65 - 199 [place] mg/dL [facility] LABORATORY Comment: Supplemental ranges: <140 mg/dL before meals <180 mg/dL all other times of the day Specimen Anatomical Collection Method Collection Time Receive d Time (Source) Location / / Volume Laterality Blood 12/10/2021 1:58 AM 2 1:58 EDT AM EDT Iker Cuevas MD POINT OF CARE TEST ORDERABLE S Performing Organization Address City/[facility]/ZIP Code Phon e Number [address] (ABNORMAL) POCT Glucose (12/09/2021 9:02 PM EDT) athologist Signature POC Glucose 313 (H) 65 - 199 [place] mg/dL [facility] LABORATORY Comment: Supplemental ranges: <140 mg/dL before meals <180 mg/dL all other times of the day Specimen Anatomical Collection Method Collection Time Receive d Time (Source) Location / / Volume Laterality Blood 12/09/2021 9:02 PM 2 9:02 EDT PM EDT Iker Cuevas MD POINT OF CARE TEST ORDERABLE S Performing Organization Address City/[facility]/[place] [address] Heparin (unfractionated) Level (12/09/2021 [...] Organization Address City/State/[place] [address] (ABNORMAL) Basic Metabolic Panel (non-fasting) (12/09/2021 7:30 PM EDT) athologist Signature Glucose Lvl 372 (H) 65 - 199 [facility] mg/dL [facility] LABORATORY Comment: [...] Organization Address City/State/[place] [address] (ABNORMAL) POCT Glucose (12/09/2021 6:34 PM EDT) athologist Signature POC Glucose 408 (H) 65 - 199 [place] mg/dL [facility] LABORATORY Comment: Supplemental ranges: <140 mg/dL before meals <180 mg/dL all other times of the day Specimen Anatomical Collection Method Collection Time Receive d Time (Source) Location / / Volume Laterality Blood 12/09/2021 6:34 PM 2 6:34 EDT PM EDT Iker Cuevas MD POINT OF CARE TEST ORDERABLE S Performing Organization Address City/State/[place] [address] (ABNORMAL) POCT Glucose (12/09/2021 6:32 PM EDT) athologist Signature POC Glucose 356 (H) 65 - 199 [facility] mg/dL [facility] LABORATORY Comment: Supplemental ranges: <140 mg/dL before meals <180 mg/dL all other times of the day Specimen Anatomical Collection Method Collection Time Receive d Time (Source) Location / / Volume Laterality Blood 12/09/2021 6:32 PM 2 6:32 EDT PM EDT Iker Cuevas MD POINT OF CARE TEST ORDERABLE S Performing Organization Address City/[facility]/[place] [address] (ABNORMAL) POCT Glucose (12/09/2021 4:19 PM EDT) athologist Signature POC Glucose 347 (H) 65 - 199 [facility] mg/dL [facility] LABOR[facility]ORY Comment: Supplemental ranges: <140 mg/dL before meals <180 mg/dL all other times of the day Specimen Anatomical Collection Method Collection Time Receive d Time (Source) Location / / Volume Laterality Blood 12/09/2021 4:19 PM 2 4:19 EDT PM EDT Iker Cuevas MD POINT OF CARE TEST ORDERABLE S Performing Organization Address City/State/[place] [address] Heparin (unfractionated) Level (12/09/2021 [...] Organization Address City/State/[place] [address] (ABNORMAL) POCT Glucose (12/09/2021 12:02 PM EDT) athologist Signature POC Glucose 235 (H) 65 - 199 [facility] mg/dL [facility] LABORATORY Comment: Supplemental ranges: <140 mg/dL before meals <180 mg/dL all other times of the day Specimen Anatomical Collection Method Collection Time Receive d Time (Source) Location / / Volume Laterality Blood 12/09/2021 12:02 12/09/2021 PM EDT 12:02 PM EDT Iker Cuevas MD POINT OF CARE TEST ORDERABLE S Performing Organization Address City/State/[place] [address] (ABNORMAL) POCT Glucose (12/09/2021 9:44 AM EDT) athologist Signature POC Glucose 214 (H) 65 - 199 [place] RY[place] mg/dL [facility] LABORATORY Comment: Supplemental ranges: <140 mg/dL before meals <180 mg/dL all other times of the day Specimen Anatomical Collection Method Collection Time Receive d Time (Source) Location / / Volume Laterality Blood 12/09/2021 9:44 AM 2 9:44 EDT AM EDT Iker Cuevas MD POINT OF CARE TEST ORDERABLE S Performing Organization Address City/[facility]/[place] [address] EKG 12 Lead (12/09/2021 7:57 AM EDT) Component Value Ref Range Test Analysis Performed Pathologis t Method Time At Signature Ventricular rate 101 BPM MUSE SYSTEM Atrial Rate 101 BPM MUSE SYSTEM P-R Interval 150 ms MUSE SYSTEM QRS Duration 112 ms MUSE SYSTEM Q-T Interval 364 ms MUSE SYSTEM QTC Calculated 471 ms MUSE SYSTEM (Bezet) Calculated P [place] 59 degrees MUSE SYSTEM Calculated R [place] -42 degrees MUSE SYSTEM Calculated T [place] 102 degrees MUSE SYSTEM INTERPRETATION Sinus tachycardia Occasional Premature ventricular com plexes MUSE SYSTEM Left axis deviation 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) Abnormal ECG When compared with ECG of 08-DEC-2021 16:40, Premature ventricular complexes are now Present Confirmed by MD Fernandez Danette ([id number]) on 12/10/2021 4:55:06 PM Specimen Anatomical Collection Method Collection Time Receive d Time (Source) Location / / Volume Laterality 12/09/2021 7:57 AM 2 4:55 EDT PM EDT Iker Cuevas MD ECG ORDERABLES Performing Organization Address City/State/ZIP Code Phon e Number MUSE SYSTEM (ABNORMAL) POCT Glucose (12/09/2021 7:28 AM EDT) P athologist Signature POC Glucose 263 (H) 65 - 199 [facility] mg/dL [facility] LABORATORY Comment: Supplemental ranges: <140 mg/dL before meals <180 mg/dL all other times of the day Specimen Anatomical Collection Method Collection Time Receive d Time (Source) Location / / Volume Laterality Blood 12/09/2021 7:28 AM 2 7:28 EDT AM EDT Iker Cuevas MD POINT OF CARE TEST ORDERABLE S Performing Organization Address City/State/ZIP Code Phon e Number [place] [id number] (ABNORMAL) Hemoglobin A1c (12/09/2021 [...] Mellitus, Diabetes Care 2013; 36: Suppl. 1, W77-46 Est Avg Gluc See note mg/dL [place] [...] into estimated average glucose values. ??Diabetes Care 2008:31(8):6349-4690. Specimen Anatomical Collection Method Collection Time Receive d Time (Source) Location / / Volume Laterality Blood Venous Draw / 12/09/2021 6:18 AM 12/10/19 22 Unknown EDT 12:24 PM EDT Resulting Agency Comment Spec In Lab Migdalia BROWN CHEMISTRY ORDERABLES Performing Organization Address [facility] [place] [address] (ABNORMAL) Prothrombin Time (12/09/2021 6:18 AM EDT) athologist Signature PT 26.6 (H) 9.4 - 12.5 [facility] LABORATORY INR 2.3 [place] [...] Performing Organization Address [facility] [place] [address] Heparin (unfractionated) Level (12/09/2021 [...] Organization Address City/State/[place] [address] (ABNORMAL) Differential, Automated (12/09/2021 6:18 AM EDT) [facility] Method Time Signature Neutrophils % 91.5 % [facility]ORY Neutr Abs (ANC) 15.78 (H) 1.70 - [facility] 6.10 [facility] x10(3)/[facility] LABORATORY Lymphocytes % 2.9 % [facility] Lymphocytes Abs 0.5 (L) 0.9 - 3.2 [facility] x10(3)/[facility] LABORATORY Monocytes % 4.9 % [facility] Monocyte Abs 0.8 0.3 - 0.9 [facility] x10(3)/[facility] LABORATORY Eosinophils % 0.0 % [facility] Eosinophils Abs 0.0 0.0 - 0.4 [facility] x10(3)/[facility] LABORATORY Basophils % 0.2 % [facility] Basophils Abs 0.0 0.0 - 0.1 [facility] x10(3)/[facility] LABORATORY Immature Gran % 0.50 [...] Gran Abs 0.09 (H) 0.00 - 0.04 x10(3)/[facility] LABORATORY Specimen Anatomical Collection Method Collection Time Receive d Time (Source) Location / / Volume Laterality Blood 12/09/2021 6:18 AM 6:33 EDT AM EDT Resulting Agency Comment Spec In Lab Morgan BROWN HEMATOLOGY ORDERABLES Performing Organization Address City/State/[place] [address] (ABNORMAL) Hemogram (12/09/2021 6:18 AM EDT) Analysis Performed At Patho logist Time Signature WBC 17.2 (H) 4.0 - 9.5 [facility] x10(3)/[facility] LABORATORY RBC 4.32 (L) 4.58 - [facility] 5.54 [facility] x10(6)/[facility] LABORATORY Hemoglobin 12.6 (L) 13.7 - [facility] 16.5 g/dL [facility]ORY Hematocrit 38.9 (L) 40.5 - [facility] 48.5 % [facility] LAB[facility]ORY MCV 90.0 82.9 - [facility] 93.1 [facility] LABORATORY MCH 29.2 27.5 - [facility] 32.1 pg [facility]ATORY MCHC 32.4 32.0 - [facility] 35.7 g/dL [facility] LAB[facility]ORY Platelets 193 145 - 357 [facility] x10(3)/[facility] LABORATORY RDWSD 50.4 (H) 36.0 - [facility] RYAN 45.0 [facility] LABORATORY RDWCV 15.2 (H) 11.4 - [facility] 13.8 % [facility] LABORATORY MPV 9.5 7.6 - 12.9 [facility] LABORATORY nRBC % Auto 0.0 % [facility] nRBC Abs Auto 0.000 0.000 - [facility] 0.000 [facility] x10(3)/[facility] LABORATORY Specimen Anatomical Collection Method Collection Time Receive d Time (Source) Location / / Volume Laterality Blood 12/09/2021 6:18 AM 6:33 EDT AM EDT Resulting Agency Comment Spec In Lab Morgan BROWN HEMATOLOGY ORDERABLES Performing Organization Address City/State/[place] [address] Lipid Panel (Reflex Direct LDL) (12/09/2021 6:18 AM EDT) athologist Signature Chol, Total 105 mg/dL [facility] Comment: Lower Risk: <200 mg/dL Average Risk: 200-239 mg/dL Higher Risk: >it=346 mg/dL Triglycerides 133 mg/dL [facility] LABORATORY Comment: Average Risk/Lower Risk: <150 mg/dL Borderline High Risk: 150-199 mg/dL High Risk: 200-499 mg/dL Very High Risk: >sm=321 mg/dL HDL 42 mg/dL [facility] LABORATORY Comment: Males: ?? Higher Risk: <40 mg/dL Females: ?? Higher Risk: <50 mg/dL LDL Cholesterol 36 mg/dL [facility] Comment: Lowest Risk: <100 mg/dL Lower Risk: 100-129 mg/dL Borderline High Risk: 130-159 mg/dL High Risk: 160-189 mg/dL Very High Risk: >xt=241 mg/dL Chol/HDL Ratio 2.[address] [facility] Lipid Interpretation See Note [facility] LABORATORY Comment: Lipid management should be guided by a p atient? s ASCVD risk, goals and preferences. ACC/AHA Guidelines recommend high intens ity statin if clinical ASCVD or LDL greater than or equal to 190 mg/dL. http://tinyurl.com/MGT-GCJ-Rprbotjuc Adults aged 40-75 with LDL 70-189 mg/dL should have their 10 year ASCVD risk estimated with the ACC/AHA ASCVD risk es timator http://tools.acc.org/IACVU-Xzim-Ktudoenm r/ Statin should be discussed if risk [...] City/[facility]/ZIP Code Phon e Number [address] TSH (12/09/2021 6:18 AM EDT) P athologist Signature TSH 1.60 0.27 - 4.20 [facility] mcIU/mL [facility] LABORATORY Comment: Reference Interval (mcIU/mL): Females: ??First Trimester: 0.23-3.88 ??Second Trimester: 0.22-3.90 ??Third Trimester: 0.44-4.66 Specimen Anatomical Collection Method Collection Time Receive d Time (Source) Location / / Volume Laterality Blood 12/09/2021 6:18 AM 2 6:33 EDT AM EDT Resulting Agency Comment Spec In Lab Iker Cuevas MD CHEMISTRY ORDERABLES Performing Organization Address City/[facility]/[place] [address] Hepatic Function Panel (12/09/2021 6:18 AM EDT) P athologist Signature Total Protein 7.3 6.1 - 8.0 [facility] g/dL [facility] LABOR[facility]ORY Albumin 4.2 3.2 - 5.2 [facility] g/dL [facility] AST 25 0 - 39 [facility] unit/L [facility] ALT 15 0 - 55 [facility] unit/L [facility] Alk Phos 75 40 - 130 [facility] unit/L [facility] Total 1.1 0.2 - 1.3 [facility] Bilirubin mg/dL [facility] LABORATORY Bili, Direct 0.2 0.0 - 0.3 [facility] mg/dL [facility] LAB[facility]ORY Specimen Anatomical Collection Method Collection Time Receive d Time (Source) Location / / Volume Laterality Blood 12/09/2021 6:18 AM 6:33 EDT AM EDT Resulting Agency Comment Spec In Lab Iker Cuevas MD CHEMISTRY ORDERABLES Performing Organization Address City/State/Z[place] [address] (ABNORMAL) BMP w/fasting Glucose (12/09/2021 6:18 AM EDT) athologist Signature Glucose 235 (H) 65 - 99 [facility] Fasting mg/dL [facility] LAB[facility]ORY Comment: ?Fasting* Glucose Interpretive C [...] of Diabetes Mellitus, Position Statement from the [place] [employer]. ??Diabete s Care, Volume 33, [...] City/[facility]/ZIP Code Phon e Number [address] Magnesium (12/09/2021 6:18 AM EDT) P athologist Signature Magnesium 0.81 0.69 - 1.07 [facility] mmol/L [facility] LABORATORY Specimen Anatomical Collection Method Collection Time Receive d Time (Source) Location / / Volume Laterality Blood 12/09/2021 6:18 AM 2 6:33 EDT AM EDT Resulting Agency Comment Spec In Lab Iker Cuevas MD CHEMISTRY ORDERABLES Performing Organization Address City/[facility]/ZIP Code Phon e Number [address] (ABNORMAL) Troponin (12/09/2021 6:18 AM EDT) P athologist Signature Troponin-T 1.13 (H) 0.00 - [place] 0.00 ng/mL [facility] LABOR[facility]ORY Comment: The 99th percentile for [...] additional sample may be indicated. Reference: Third [place] Definition of Myocardial Infarction. Journal of the [place] [employer] 2012;60:1581-98 Specimen Anatomical Collection Method Collection Time Receive d Time (Source) Location / / Volume Laterality Blood 12/09/2021 6:18 AM 6:33 EDT AM EDT Resulting Agency Comment Spec In Lab Iker Cuevas MD CHEMISTRY ORDERABLES Performing Organization Address City/State/ZIP Code [place] [address] XR Chest One View [...] questions please contact the health critical care educator that requested your imaging first. ? Electronically signed by: Yoselin White, [facility] ([phone]), at 12/09/2021 5:35 AM Narrative 12/09/2021 5:35 [...] questions please contact the health critical care educator that requested your imaging first. Electronically signed by: Yoselin White, [facility] ([phone]), at 12/09/2021 5:35 AM Amber Sanches MD IMG DX ORDERABLES (ABNORMAL) BLOOD GAS 2 ARTERIAL (12/09/2021 5:14 AM EDT) Analysis Performed At Patho logist Time Signature pH Art 7.43 7.35 - [facility] 7.45 [facility] LABORATORY pCO2 Art 36 35 - 45 [facility] mmHg [facility] LABORATORY pO2 Art 67 (L) 85 - 104 [facility] LABORATORY HCO3 Art 23.4 20.0 - [facility] 26.0 [facility] mmol/[facility] LABORATORY BE Art -0.9 -3.0 - 3.0 [facility] mmol/L [facility] LABORATORY Hgb Blood Gas 13.2 (L) 13.7 - [facility] 16.5 g/dL [facility] O2HB Art 91.3 (L) 94.0 - [facility] 97.0 % [facility] LABORATORY COHB Art 0.4 % [facility] [...] [facility] PF Ratio Art 191 [facility] LABORATORY Specimen Anatomical Collection Method Collection Time Receive d Time (Source) Location / / Volume Laterality Blood 12/09/2021 5:14 AM 2 5:14 EDT AM EDT Iker Cuevas MD CHEMISTRY ORDERABLES Performing Organization Address City/[facility] [place] [address] POCT Glucose (12/09/2021 4:46 AM EDT) P athologist Signature POC Glucose 198 65 - 199 [facility] mg/dL [facility]ORY Comment: Supplemental ranges: <140 mg/dL before meals <180 mg/dL all other times of the day Specimen Anatomical Collection Method Collection Time Receive d Time (Source) Location / / Volume Laterality Blood 12/09/2021 4:46 AM 2 4:46 EDT AM EDT Iker Cuevas MD POINT OF CARE TEST ORDERABLE S Performing Organization Address City/[facility]/[place] [address] (ABNORMAL) POCT Glucose (12/09/2021 3:01 AM EDT) P athologist Signature POC Glucose 225 (H) 65 - 199 [facility] mg/dL [facility] Comment: Supplemental ranges: <140 mg/dL before meals <180 mg/dL all other times of the day Specimen Anatomical Collection Method Collection Time Receive d Time (Source) Location / / Volume Laterality Blood 12/09/2021 3:01 AM 2 3:01 EDT AM EDT Iker Cuevas MD POINT OF CARE TEST ORDERABLE S Performing Organization Address City/State/[place] [address] (ABNORMAL) POCT Glucose (12/08/2021 10:55 PM EDT) athologist Signature POC Glucose 327 (H) 65 - 199 [facility] mg/dL [facility] LABOR[facility]ORY Comment: Supplemental ranges: <140 mg/dL before meals <180 mg/dL all other times of the day Specimen Anatomical Collection Method Collection Time Receive d Time (Source) Location / / Volume Laterality Blood 12/08/2021 10:55 12/08/2021 PM EDT 10:55 PM EDT Iker Cuevas MD POINT OF CARE TEST ORDERABLE S Performing Organization Address City/[facility]/[place] [address] Heparin (unfractionated) Level (12/08/2021 10:03 PM EDT) athologist Signature Heparin UFH 0.18 IU/mL [facility] [...] Organization Address City/State/[place] [address] (ABNORMAL) Troponin (12/08/2021 10:03 PM EDT) athologist Signature Troponin-T 0.92 (H) 0.00 - [place] [place] 0.00 ng/mL [facility] Comment: The 99th percentile for [...] additional sample may be indicated. Reference: Third [place] Definition of Myocardial Infarction. Journal of the [place] [employer] 2012;60:1581-98 Specimen Anatomical Collection Method Collection Time Receive d Time (Source) Location / / Volume Laterality Blood 12/08/2021 10:03 12/08/2021 PM EDT 10:31 PM EDT Resulting Agency Comment Spec In Lab Iker Cuevas MD CHEMISTRY ORDERABLES Performing Organization Address City/State/ZIP Code Phon e Number [facility] [place] [address] (ABNORMAL) POCT Glucose (12/08/2021 8:22 PM EDT) athologist Signature POC Glucose 429 (H) 65 - 199 [place] [place] mg/dL [facility] LABORATORY Comment: Supplemental ranges: <140 mg/dL before meals <180 mg/dL all other times of the day Specimen Anatomical Collection Method Collection Time Receive d Time (Source) Location / / Volume Laterality Blood 12/08/2021 8:22 PM 2 8:22 EDT PM EDT Iker Cuevas MD POINT OF CARE TEST ORDERABLE S Performing Organization Address City/[facility]/ZIP Code Phon e Number [address] (ABNORMAL) POCT Glucose (12/08/2021 7:06 PM EDT) athologist Signature POC Glucose 442 (H) 65 - 199 [facility] mg/dL [facility] Comment: Supplemental ranges: <140 mg/dL before meals <180 mg/dL all other times of the day Specimen Anatomical Collection Method Collection Time Receive d Time (Source) Location / / Volume Laterality Blood 12/08/2021 7:06 PM 2 7:06 EDT PM EDT Iker Cuevas MD POINT OF CARE TEST ORDERABLE S Performing Organization Address City/[facility]/[place] [address] Magnesium (12/08/2021 6:02 PM EDT) athologist Signature Magnesium 0.86 0.69 - 1.07 [facility] mmol/L [facility] LABORATORY Specimen Anatomical Collection Method Collection Time Receive d Time (Source) Location / / Volume Laterality Blood 12/08/2021 6:02 PM 2 6:36 EDT PM EDT Resulting Agency Comment Spec In Lab Iker Cuevas MD CHEMISTRY ORDERABLES Performing Organization Address City/[facility]/[place] [address] (ABNORMAL) Basic Metabolic Panel (non-fasting) (12/08/2021 6:02 PM EDT) athologist Signature Glucose Lvl 392 (H) 65 - 199 [facility] mg/dL [facility] Comment: [...] Organization Address City/State/[place] [address] (ABNORMAL) Differential, Automated (12/08/2021 6:02 PM EDT) [facility] gist Method Time Signature Neutrophils % 89.5 % [facility] LABORATORY Neutr Abs (ANC) 13.97 (H) 1.70 - [facility] 6.10 [facility] x10(3)/[facility] LABORATORY Lymphocytes % 3.7 % [facility] LABORATORY Lymphocytes Abs 0.6 (L) 0.9 - 3.2 [facility] x10(3)/[facility] LABORATORY Monocytes % 6.1 % [facility]OR[facility]ORY Monocyte Abs 1.0 (H) 0.3 - 0.9 [facility] x10(3)/[facility] LABORATORY Eosinophils % 0.0 % [facility] Eosinophils Abs 0.0 0.0 - 0.4 [facility] x10(3)/[facility] LABORATORY Basophils % 0.2 % [facility] Basophils Abs 0.0 0.0 - 0.1 [facility] x10(3)/[facility] LABORATORY Immature Gran % 0.50 [...] Organization Address City/State/[place] [address] (ABNORMAL) Hemogram (12/08/2021 6:02 PM EDT) Analysis Performed At Patho logist Time Signature WBC 15.6 (H) 4.0 - 9.5 [facility] x10(3)/[facility] LABORATORY RBC 4.05 (L) 4.58 - [facility] 5.54 [facility] x10(6)/[facility] LABORATORY Hemoglobin 11.8 (L) 13.7 - [facility] 16.5 g/dL [facility] LABORATORY Hematocrit 35.8 (L) 40.5 - [facility] 48.5 % [facility]AT[facility] MCV 88.4 82.9 - [facility] 93.1 [facility] LABORATORY MCH 29.1 27.5 - [facility] 32.1 pg [facility] LAB[facility]AT[facility] MCHC 33.0 32.0 - [facility] 35.7 g/dL [facility] Platelets 178 145 - 357 [facility] x10(3)/[facility] LABORATORY RDWSD 49.3 (H) 36.0 - [facility] 45.0 [facility] LABORATORY RDWCV 15.1 (H) 11.4 - [facility] 13.8 % [facility] LABORATORY MPV 10.4 7.6 - 12.9 [facility] fL [facility] LABORATORY nRBC % Auto 0.0 % [facility] nRBC Abs Auto 0.000 0.000 - [facility] 0.000 [facility] x10(3)/[facility] LABORATORY Specimen Anatomical Collection Method Collection Time Receive d Time (Source) Location / / Volume Laterality Blood 12/08/2021 6:02 PM 6:36 EDT PM EDT Resulting Agency Comment Spec In Lab Morgan BROWN HEMATOLOGY ORDERABLES Performing Organization Address City/State/[place] [address] (ABNORMAL) Troponin (12/08/2021 6:02 PM EDT) P athologist Signature Troponin-T 0.89 (H) 0.00 - [facility] 0.00 ng/mL [facility] Comment: The 99th percentile for [...] additional sample may be indicated. Reference: Third [place] Definition of Myocardial Infarction. Journal of the [place] [employer] 2012;60:1581-98 Specimen Anatomical Collection Method Collection Time Receive d Time (Source) Location / / Volume Laterality Blood 12/08/2021 6:02 PM 6:36 EDT PM EDT Resulting Agency Comment Spec In Lab Iker Cuevas MD CHEMISTRY ORDERABLES Performing Organization Address City/State/ZIP Code Phon e Number [place] [id number] COVID-19 PCR (12/08/2021 5:00 PM EDT) [facility] Method Time Signature SARS-CoV-2 Not Detected Not Detected [facility] RNA PCR [facility] LABORATORY Comment: This result should [...] using the Simplexa COVID-19 Direct Assay by [employer] as authorized by the FDA issued Emergency [...] fact sheets at the following FDA website: https://www.fda.gov/medical-devices/ensstkvazdk-ushpxpq-6389-drjiu-72-etskhlzqd- sxt-dyfcdcezewphci-rkdicoz-devices/hlrwi-lgrbuztbetw-vjgv SARS-CoV-2 Source [employer] Swab [facility] LABORATORY Specimen (Source) Anatomical Collection Method Collection Time Re ceived Time Location / / Volume Laterality Nasopharyngeal Swab 12/08/2021 5:00 12/08 PM EDT 6:03 PM EDT Comment: Symptoms->Surveillance Resulting Agency Comment Spec In Lab Iker Cuevas MD MICROBIOLOGY - GENERAL ORDER [place] Performing Organization Address City/State/[place] [address] EKG 12 Lead (12/08/2021 4:40 PM EDT) Component Value Ref Range Test Analysis Performed Pathologis t Method Time At Signature Ventricular rate 78 BPM MUSE SYSTEM Atrial Rate 78 BPM MUSE SYSTEM P-R Interval 152 ms MUSE SYSTEM QRS Duration 96 ms MUSE SYSTEM Q-T Interval 396 ms MUSE SYSTEM QTC Calculated 451 ms MUSE SYSTEM (Bezet) Calculated P [place] 44 degrees MUSE SYSTEM Calculated R [place] -31 degrees MUSE SYSTEM Calculated T [place] 124 degrees MUSE SYSTEM INTERPRETATION Normal sinus [...] 400 (H) 65 - 199 [facility] mg/dL [facility] LAB[facility] Comment: Supplemental ranges: <140 mg/dL before meals <180 mg/dL all other times of the day Specimen Anatomical Collection Method Collection Time Receive d Time (Source) Location / / Volume Laterality Blood 12/08/2021 4:34 PM 2 4:34 EDT PM EDT Iker Cuevas MD POINT OF CARE TEST ORDERABLE S Performing Organization Address City/State/[place] [address] documented in this encounter [...] Given 11/23 10:30 AM EDT 300 mcg (ROLLING MILL OPERATOR) ONCE PRN, Starting on Wed12/10/21 at [...] - Reason: Transfer to a Procedural area)1230 ([facility] Unhold - Provider: Admin Adt) 650 mg, [...] - Reason: Transfer to a Procedural area)1230 ([facility] Unhold - Provider: Admin Adt) 10 mg, [...] (Intra-Procedure), Routine niCARdipine (Cardene) (100 mcg/mL) dilution (ROLLING MILL OPERATOR) (CANCELED) 1030 (Given - Provider: Vitaliy [...] episode. & nbsp; For persistent hypoglycemia, con pouako kura kaupapa maori longer-acting treatment for the duration of the [...]
Routine documented in this encounter Care Teams International Logistics Manager Relationship Specialty Start Date End Date Lovely Vicente MD PCP - General 04/16/[address] [place] [address] documented as of this encounter
--- OUTSIDE RECORDS SUMMARY | 2022-04-27 08:13 | XMS_ITS | Encounter Summary ---
:1945 Author Organization [facility] [place] [address] Care Team Providers Name Role Phone Lovely Vicente MD Primary Care Provider Encounter Details Date Type Department Care Team Description 07/28/2019 Office Visit Cardiology at [facility] Danette Maxwell Chronic systolic heart failu re; [facility] A, STACIE ASHD (arteriosclerotic heart disease); Drive [facility] S/P CABG x 3; [place], [place] MARIA VICTORIA (obstructive sleep apnea) on CPAP; [phone] CARDIOLOGY Mixed hyperlipidemia [phone] [place], [place] [address] Social History Tobacco Use Types [...] in this encounter Progress Notes Danette Maxwell, PUTTYING AND CALKING SUPERVISOR - 07/28/2019 9:40 AM EST Images from [...] regurgitation present. 07/07/2019 - 07/21/2019 Zio Patch Marine Designer The patient had a minimum heart rate [...] K+ 4.5 today 6. Post-op atrial fibrillation [id number] (CHF, HTN, DM, vascular disease, thromboembolism) Amiodarone discontinued Continue coumadin INR managed by PCP 7. PAD 08/06/2017: Right 1st, 2nd, 3rd toe amputation 08/11/2017: Left??femoral arterial access, RLE??angiogram, Balloon angioplasty of R PT with Eleazar 2.5 x 80 10/25/2017: right popliteal-ped[facility] bypass [facility] [...] advised: Refer to EP (Dr. Mcelroy in [place]) 5. Heart Failure Clinic follow up scheduled for: 3 months with proBNP and BMP Danette Maxwell APRN 07/28/2019 documented in this encounter Plan of Treatment Upcoming Encounters Date Type Specialty Care Team Description 05/28/2022 Appointment Cardiology Zulma Dolan MD [facility] [place], [place] [address] (Wo rk) 05/28/2022 Laboratory Appointment Lab 05/28/2022 Office Visit Cardiology Zulma Dolan MD [facility] [place] [address] Liz Poole PA [facility] [place] [address] 06/10/2022 Office Visit Dermatology Laura Scherer MD [facility] [address] [place], [place] [address] (Wo rk) documented as of this encounter Results (ABNORMAL) Basic Metabolic Panel (non-fasting) (07/28/2019 8:36 AM EST) P athologist Signature Glucose Lvl 153 65 - 199 [facility] mg/dL [facility] [...] of body mass or the acutely ill. [email or web address] eGFR 81 >=60 mL/min/1.73 m?? [facility] Comment: The eGFR was calculated using the CKD-EP I equation. As with all creatinine based estimates of kidney function, eGFR values calculated with the CKD-EPI equation are not accurate in patients wi th acute kidney failure, extremes of body mass or the acutely ill. [email or web address]/[email or web address]EAUnkf Specimen Anatomical Collection Method Collection Time Receive d Time (Source) Location / / Volume Laterality Blood specimen 07/28/2019 8:36 AM 020 8:46 (specimen) EST AM EST Resulting Agency Comment Spec In Lab Danette Maxwell APRN CHEMISTRY ORDERABLES Performing Organization Address City/State/ZIP Code Phon e Number [address] (ABNORMAL) pro-Brain Natriuretic Peptide (07/28/2019 8:36 AM EST) athologist Signature ProBNP 647 (H) <=125 pg/mL [facility] Specimen Anatomical Collection Method Collection Time Receive d Time (Source) Location / / Volume Laterality Blood specimen 07/28/2019 8:36 AM 020 8:46 (specimen) EST AM EST Resulting Agency Comment Spec In Lab Danette Maxwell APRN CHEMISTRY ORDERABLES Performing Organization Address City/[facility]/[place] [address] documented in this encounter Visit Diagnoses Diagnosis Chronic systolic heart failure ASHD (arteriosclerotic heart disease) Coronary atherosclerosis of unspecified type of vessel, bill moore's slough or graft S/P CABG x 3 Postsurgical aortocoronary bypass status MARIA VICTORIA (obstructive sleep apnea) on CPAP Obstructive sleep apnea (adult) (pediatr ic) Mixed hyperlipidemia documented in this encounter Care Teams Commissary Clerk Relationship Specialty Start Date End Date Lovely Vicente MD PCP - General 04/16/[address] [place] [address] documented as of this encounter
--- OUTSIDE RECORDS SUMMARY | 2022-04-27 08:13 | XMS_ITS | Encounter Summary ---
:1945 Author Organization [place] [address] Care Team Providers Name Role Phone Lovely Vicente MD Primary Care Provider Encounter Details Date Type Department Care Team Description 03/20/2021 Ancillary Procedure Radiology Library at [place] [address] [place] [address] [phone] Social History Tobacco Use Types Packs/Day Years [...] MD [facility] [address] [place] [address] (Wo rk) 05/28/2022 Laboratory Appointment Lab 05/28/2022 Office Visit Cardiology Zulma Dolan MD [facility] [place] [address] Liz Poole PA [facility] [place] [address] 06/10/2022 Office Visit Dermatology Laura Scherer MD [facility] ER [address] [place], [place] [address] (Wo rk) documented as [...] Organization Address City/State/ZIP Code Phon e Number [place], [place] documented in this encounter Visit Diagnoses Not on filedocumented in this encounter Care Teams Fitness Center Attendant Relationship Specialty Start Date End Date Lovely Vicente MD PCP - General 04/16/[address] [place] [address] documented as of this encounter
--- OUTSIDE RECORDS SUMMARY | 2022-04-27 08:13 | XMS_ITS | Encounter Summary ---
:1945 Author Organization [facility] [place] [address] Care Team Providers Name Role Phone Lovely Vicente MD Primary Care Provider Reason for Referral Diagnostic Test (Routine) - Specialty Diagnoses / Procedures Referred By Contact Refer red To Contact Cardiology Diagnoses Chronic systolic heart failure Danette Maxwell APRN [facility] Non-Inv Card Lab Procedures Echocardiogram Transthoracic(Leb) [facility] [place] [phone] [place] [address] Referral ID Status Reason Start Date Expiration Visits Visits Date Requested Authorized [id number] Specialty 08/15/2018 08/15/2018 1 1 Service Requested Reason for Visit Diagnostic Test (Routine) - Specialty Diagnoses / Procedures Referred By Contact Nawaf owen To Contact Cardiology Diagnoses Chronic systolic heart failure Danette Maxwell APRN [facility] Non-Inv Card Lab Procedures Echocardiogram Transthoracic(Leb) [facility] [place] [address] [place] [address] Referral ID Status Reason Start Date Expiration Visits Visits Date Requested Authorized [id number] Specialty 08/15/2018 08/15/2018 1 1 Service Requested Encounter Details Date Type Department Care Team Description 08/15/2018 Hospital Encounter Non-Invasive Danette Maxwell Chron ic systolic Cardiology Lab Barbara Gomes APRN heart failure [facility] [place] [address] [place] [phone] (Work) [phone] Social History Tobacco Use Types Packs/Day Years [...] Zulma Dolan MD [facility] [place], [place] [address] (Wo rk) 05/28/2022 Laboratory Appointment Lab 05/28/2022 Office Visit Cardiology Zulma Dolan MD [facility] [place] [address] Liz Poole PA [facility] [place] [address] 06/10/2022 Office Visit Dermatology Laura Scherer MD [facility] DR [address] [place], [place] [address] (Wo rk) documented as of [...] Mccollum ? (Age): 1945(73y) Med Rec#: ? [id number] ?Sex: ?M ? Site Loc: ? [facility] ?Ht / Wt: ??172(cm)/81(kg) Pt. Loc: ?Echo Lab ?BSA: ?1.94 Study Date: ?? 08/15/2018 ?Pt. Type: Outpatient Tape: ? Referring: MARY ELLEN Reading: Scott Ortega ([id number]) Deliverer Outside: Laura Sargent Diagnosis: *Chronic systolic (congestive) heart [...] E-wave Vmax ?1.2 ?m/sec ? MV deceleration uloe524.4 ? msec ? MV A-wave Vmax ?0.7 [...] ? Mid-Inferior ?Hypokinetic ? Mid-Inferoseptal ?Hypokinetic ? [place]-Septal ? Akinetic ? [place]-Anterior ? Hypokinetic ? [place]-Lateral ?Akinetic ? [place]-Inferior ? Hypokinetic ? [place]-Tip ?Akinetic ? This report has been electronically sign ed by: _ Scott Ortega M.D. ? 08/15/2018 08:17:26 Images reviewed and interpretation ver ied [facility] Cardiac Ultrasound Laboratory Procedure Note Scott Ortega MD - 08/15/2018Format ting of this note might be different from the original. Procedure: Transthoracic Echocardiogram Patient: NATALYA MCBRIDE(Age): [birth year]73y) Med Rec#: [id number] Sex: M Site Loc: [facility] Ht / Wt: 172(cm)/81(kg) Pt. Loc: Echo Lab BSA: 1.94 Study Date: 08/15/2018 Pt. Type: Outpati ent Tape: Referring: MARY ELLEN Reading: Scott Ortega ([id number]) Deliverer Outside: Laura Sargent Diagnosis: *Chronic systolic (congestive) heart [...] MV E-wave Vmax 1.2 m/sec MV deceleration ufoj334.4 msec MV A-wave Vmax 0.7 m/sec MV [...] Akinetic Mid-Posterolateral Akinetic Mid-Inferior Hypokinetic Mid-Inferoseptal Hypokinetic [place]-Septal Akinetic [place]-Anterior Hypokinetic [place]-Lateral Akinetic [place]-Inferior Hypokinetic [place]-Tip Akinetic This report has been electronically sign ed by: _ Scott Ortega M.D. 08/15/2018 08:17: 26 Images reviewed and interpretation verif ied [facility] Cardiac Ultrasound Laboratory Danette A Hans AP OPERATOR ECHO ORDERABLES documented in this encounter Visit [...] documented in this encounter Care Teams Hand Driller Relationship Specialty Start Date End Date Lovely Vicente MD PCP - General 04/16/[address] [place] [address] documented as of this encounter
--- OUTSIDE RECORDS SUMMARY | 2022-04-27 08:13 | XMS_ITS | Encounter Summary ---
:1945 Author Organization [facility] [place] [address] Care Team Providers Name Role Phone Lovely Vicente MD Primary Care Provider Encounter Details Date Type Department Care Team Description 12/08/2021 External Results Non-Invasive Cardiology Lab Mar y None [facility] [place] [address] Social History Tobacco Use Types Packs/Day [...] Zulma Dolan MD [facility] [place], [place] [address] (Wo rk) 05/28/2022 Laboratory Appointment Lab 05/28/2022 Office Visit Cardiology Zulma Dolan [place] [address] Liz Poole PA [facility] [place] [address] 06/10/2022 Office Visit Dermatology Laura Scherer MD [facility] [address] [place], [place] [address] (Wo rk) documented [...] on filedocumented in this encounter Care Teams Oncology Rep Relationship Specialty Start Date End Date Lovely Vicente MD PCP - General 04/16/[address] [place] [address] documented as of this encounter
--- OUTSIDE RECORDS SUMMARY | 2022-04-27 08:13 | XMS_ITS | Encounter Summary ---
:1945 [place] [address] Care Team Providers Name Role Phone Lovely Vicente MD Primary Care Provider Encounter Details Date Type Department Care Team Description 12/07/2021 Ancillary Procedure [facility] Lovely murillo MD [facility] [address] [address] [place], [place] [phone] (Wo lissa) [address] [phone] Social History Tobacco Use Types Packs/Day Years [...] MD [facility] [address] [place] [address] (Wo rk) 05/28/2022 Laboratory Appointment Lab 05/28/2022 Office Visit Cardiology Zulma Dolan MD [facility] [place] [address] Liz Poole PA [facility] [place] [address] 06/10/2022 Office Visit Dermatology Luara Scherer MD [facility] DR [address] [place], [place] [address] (Wo rk) documented as [...] Organization Address City/State/ZIP Code Phon e Number [place], [place] documented in this encounter Visit Diagnoses Not on filedocumented in this encounter Care Teams Buffing Machine Tender Relationship Specialty Start Date End Date Lovely Vicente MD PCP - General 04/16/[address] [place] [address] documented as of this encounter
--- OUTSIDE RECORDS SUMMARY | 2022-04-27 08:13 | XMS_ITS | Encounter Summary ---
:1945 Author Organization [facility] [place] [address] Care Team Providers Name Role Phone Lovely Vicente MD Primary Care Provider Encounter Details Date Type Department Care Team Description 12/07/2021 External Results Administration [facility] [place] [address] Social History Tobacco Use Types Packs/Day [...] MD [facility] er Dr [place] [address] (Wo rk) 05/28/2022 Laboratory Appointment Lab 05/28/2022 Office Visit Cardiology Zulma Dolan MD [facility] [place] [address] Liz Poole PA [facility] [place] [address] 06/10/2022 Office Visit Dermatology Laura Scherer MD [facility] ER [address] [place], [place] [address] (Wo rk) documented as of [...] on filedocumented in this encounter Care Teams Filing Machine Operator Relationship Specialty Start Date End Date Lovely Vicente MD PCP - General 04/16/[address] [place] [address] documented as of this encounter
--- OUTSIDE RECORDS SUMMARY | 2022-04-27 08:13 | XMS_ITS | Encounter Summary ---
:1945 Author Organization [facility] [place] [address] Care Team Providers Name Role Phone Lovely Vicente MD Primary Care Provider Encounter Details Date Type Department Care Team Description 03/20/2021 Ancillary Procedure Radiology Library [place] [address] [place] [address] [phone] Social History Tobacco Use Types Packs/Day Years [...] [facility] [place], [place] [address] (Wo rk) 05/28/2022 Laboratory Appointment Lab 05/28/2022 Office Visit Cardiology Zulma Dolan [place] [address] Liz Poole PA [facility] [place] [address] 06/10/2022 Office Visit Dermatology Laura Scherer MD [facility] ER [address]MAT [place], [...] Organization Address City/State/ZIP Code Phon e Number [place], [place] documented in this encounter Visit Diagnoses Not on filedocumented in this encounter Care Teams Spinal Surgeon Relationship Specialty Start Date End Date Lovely Vicente MD PCP - General 04/16/[address] [place] [address] documented as of this encounter
--- OUTSIDE RECORDS SUMMARY | 2022-04-27 08:13 | XMS_ITS | Encounter Summary ---
:1945 Author Organization [facility] [place] [address] Care Team Providers Name Role Phone Lovely Vicente MD Primary Care Provider Encounter Details Date Type Department Care Team Description 02/19/2020 Telephone Dermatology at [facility] Ariana Wilder LPN [address] [place] [address] Social History Tobacco Use Types Packs/Day [...] Zulma Dolan MD [facility] [place], [place] [address] (Wo rk) 05/28/2022 Laboratory Appointment Lab 05/28/2022 Office Visit Cardiology Zulma Dolan MD [facility] [place] [address] Liz Poole PA [facility] [place] [address] 06/10/2022 Office Visit Dermatology Laura Scherer MD [facility] DR [address] [place], [place] [address] (Wo rk) documented as of this encounter Visit Diagnoses Not on filedocumented in this encounter Care Teams Back Digger Operator Relationship Specialty Start Date End Date Lovely Vicente MD PCP - General 04/16/[address] [place] [address] documented as of this encounter
--- OUTSIDE RECORDS SUMMARY | 2022-04-27 08:13 | XMS_ITS | Encounter Summary ---
:1945 Author Organization [facility] [place] [address] Care Team Providers Name Role Phone Lovely Vicente MD Primary Care Provider Reason for Visit Reason Onset Date Comments Follow-up 07/13/2018 amiodarone discontin ued Encounter Details Date Type Department Care Team Description 07/13/2018 Telephone Cardiology at [facility] Martha Comer, Follow-up (amiodarone [facility] RN discontin ued) [place] [address] Social History Tobacco Use Types Packs/Day [...] RN - 07/13/2018 8:57 AM EST Per MORTGAGE COORDINATOR Hans call placed to the home [...] with any questions. Call placed to the [facility] pharmacy in [place] to discontinue it there as well. Med list updated. documented in this encounter Plan of Treatment Upcoming Encounters Date Type Specialty Care Team Description 05/28/2022 Appointment Cardiology Zulma Dolan MD [facility] [address] [place], [place] [address] (Wo rk) 05/28/2022 Laboratory Appointment Lab 05/28/2022 Office Visit Cardiology Zulma Dolan MD [facility] [place] [address] Liz Poole PA [facility] [place] [address] 06/10/2022 Office Visit Dermatology Laura Scherer MD [facility] [address] [place], [place] [address] (Wo rk) documented as of this encounter Visit Diagnoses Not on filedocumented in this encounter Care Teams Merchandise Manager Relationship Specialty Start Date End Date Lovely Vicente MD PCP - General 04/16/[address] [place] [address] documented as of this encounter
--- OUTSIDE RECORDS SUMMARY | 2022-04-27 08:13 | XMS_ITS | Encounter Summary ---
:1945 Author Organization [facility] [place] [address] Care Team Providers Name Role Phone Lovely Vicente MD Primary Care Provider Encounter Details Date Type Department Care Team Description 04/16/2021 Laboratory Appointment Lab 3L [facility] [place] [address] Social History Tobacco Use Types Packs/Day Years [...] MD [facility] [place], [place] [address] (Wo rk) 05/28/2022 Laboratory Appointment Lab 05/28/2022 Office Visit Cardiology Zulma Dolan MD [facility] [place] [address] Liz Poole PA [facility] [place] [address] 06/10/2022 Office Visit Dermatology Laura Scherer MD [facility] ER [address] [place], [place] [address] (Wo rk) documented as of this encounter [...] City/State/[place] [address] (ABNORMAL) Basic Metabolic Panel (non-fasting) (04/16/2021 9:58 AM EDT) athologist Signature Glucose Lvl 77 65 - 199 [facility] mg/dL [facility] Comment: Diabetes: >=200 mg/dL plus symp toms BUN 23 (H) 10 - 20 mg/dL [facility] Creatinine 1.26 0.80 - 1.50 [...] Anion Gap 9 5 - 15 mmol/L [facility] [...] City/State/[place] [address] documented in this encounter Visit Diagnoses Diagnosis Chronic systolic heart failure documented in this encounter Care Teams Counseling Center Manager Relationship Specialty Start Date End Date Lovely Vicente MD PCP - General 04/16/[address] [place] [address] documented as of this encounter
--- OUTSIDE RECORDS SUMMARY | 2022-04-27 08:13 | XMS_ITS | Encounter Summary ---
:1945 Author Organization [facility] Address [facility] [place] [address] Care Team Providers Name Role Phone Lovely Vicente MD Primary Care Provider Reason for Referral Diagnostic Test (Routine) - Closed Specialty Diagnoses / Procedures Referred By Contact Refer red To Contact Cardiology Diagnoses Chronic systolic heart failure Danette Maxwell APRN [facility] Non-Inv Card Lab Procedures Echocardiogram Transthoracic(Leb) [facility] [place] [address] [place] [address] Referral ID Status Reason Start Date Expiration Date Visits V isits Requested Authorized [id number] Closed Specialty 07/17/2019 09/14/2019 1 1 Service Requested Encounter Details Date Type Department Care Team Description 01/16/2019 Office Visit Cardiology at [facility] Danette Maxwell, Chronic systolic heart failu re; [facility] STACIE Cardiomyopathy, ischemic; Drive [facility] Hx of thyroid cancer; [place], [place] DR ELMORE (arteriosclerotic heart disease); [address] CARDIOLOGY MARIA VICTORIA (obstructive sleep apnea) on CPAP [phone] [place], [place] [address] (Wo rk) Social History Tobacco Use Types [...] K+ 4.6 today 6. Post-op atrial fibrillation [id number] (CHF, HTN, DM, vascular disease, thromboembolism) Amiodarone discontinued Continue coumadin INR managed by PCP. 2.1 today 7. PAD 08/06/2017: Right 1st, 2nd, 3rd toe amputation 08/11/2017: Left??femoral arterial access, RLE??angiogram, Balloon angioplasty of R PT with Eleazar 2.5 x 80 10/25/2017: right popliteal-pedal bypass at [facility] 8. Hypothyrodism S/p thyroidectomy for goiter [...] Cardiology Zulma Dolan MD [facility] [place], [place] [address] (Wo rk) 05/28/2022 Laboratory Appointment Lab 05/28/2022 Office Visit Cardiology Zulma Dolan MD [facility] [place] [address] Liz Poole PA [facility] [place] [address] 06/10/2022 Office Visit Dermatology Laura Scherer MD [facility] [address]MAT OLOGY [place], [place] [address] (Wo rk) documented as of this encounter Results ECHOCARDIOGRAM COMPLETE W CONTRAST (07/28/2019 8:19 AM EST) athologist Signature EF 40 [facility] SYSTEM Anatomical Region Laterality Modality Other Specimen (Source) Anatomical Location Collection Method / Collectio n Time Received Time / Laterality Volume 07/28/2019 Narrative 07/28/2019 8:38 AM EST Procedure: ?Transthoracic Echocardiogram Patient: ?NATALYA Mccollum ? (Age): 1945(74y) Med Rec#: ? [id number] ?Sex: ?M ? Site Loc: ? [facility] ?Ht / Wt: ??172(cm)/81(kg) Pt. Loc: ?Echo Lab ?BSA: ?1.94 Study Date: ?? 07/28/2019 ?Pt. Type: Outpatient Tape: ? Referring: MARY ELLEN Reading: Ifeanyi Truong ([id number]) Corporate Strategy Intern: Fadumo Flanagan RDCS, [place]GIN[place] Diagnosis: *Chronic systolic [...] E-wave Vmax ?1 ?m/sec ? MV deceleration [id number] ? msec ? MV A-wave Vmax ?1 [...] ? Mid-Inferior ?Hypokinetic ? Mid-Inferoseptal ?Normal ? [place]-Septal ? Normal ? [place]-Anterior ? Hypokinetic ? [place]-Lateral ?Normal ? [place]-Inferior ? Akinetic ? [place]-Tip ?Hypokinetic ? This report has been electronically sign ed by: _ Ifeanyi Truong M.D. ? 07/28/2019 0 8:38:01 Images reviewed and interpretation [facility] Procedure Note Ifeanyi Truong MD - 07/28/2019Formatt ing of this note might be different from the original. Procedure: Transthoracic Echocardiogram Patient: NATALYA MCBRIDE(Age): [birth year]74y) Med Rec#: [id number] Sex: M Site Loc: [facility] Ht / Wt: 172(cm)/81(kg) Pt. Loc: Echo Lab BSA: 1.94 Study Date: 07/28/2019 Pt. Type: Outpati ent Tape: Referring: MARY ELLEN Reading: Ifeanyi Truong ([id number]) Corporate Strategy Intern: Fadumo Flanagan [facility], [place] Diagnosis: *Chronic systolic (congestive) heart [...] MV E-wave Vmax 1 m/sec MV deceleration ajcs209.5 msec MV A-wave Vmax 1 m/sec MV [...] Normal Mid-Posterolateral Normal Mid-Inferior Hypokinetic Mid-Inferoseptal Normal [place]-Septal Normal [place]-Anterior Hypokinetic [place]-Lateral Normal [place]-Inferior Akinetic [place]-Tip Hypokinetic This report has been electronically sign ed by: _ Ifeanyi Truong M.D. 07/28/2019 08:38:0 1 Images reviewed and interpretation verif ied [facility] Cardiac Ultrasound Laboratory Danette Maxwell APRN ECHO ORDERABLES (ABNORMAL) Basic Metabolic Panel (non-fasting) (01/16/2019 7:49 AM EDT) P athologist Signature Glucose Lvl 105 65 - 199 [facility] mg/dL [facility] Comment: [...] of body mass or the acutely ill. http://[employer]dn/LocalCirclesnkf eGFR 79 >=60 mL/min/1.73 m?? [facility] Comment: The eGFR was calculated using the CKD-EP I equation. As with all creatinine based estimates of kidney function, eGFR values calculated with the CKD-EPI equation are not accurate in patients wi th acute kidney failure, extremes of body mass or the acutely ill. http://[employer]/[facility]ENEnkf Specimen Anatomical Collection Method Collection Time Receive d Time (Source) Location / / Volume Laterality Blood specimen 01/16/2019 7:49 AM 019 7:55 (specimen) EDT AM EDT Resulting Agency Comment Spec In Lab Danette Maxwell APRN CHEMISTRY ORDERABLES Performing Organization Address City/State/[place] [address] (ABNORMAL) pro-Brain Natriuretic Peptide (01/16/2019 7:49 AM EDT) P athologist Signature ProBNP 780 (H) <=125 pg/mL [facility] Specimen Anatomical Collection Method Collection Time Receive d Time (Source) Location / / Volume Laterality Blood specimen 01/16/2019 7:49 AM 019 7:55 (specimen) EDT AM EDT Resulting Agency Comment Spec In Lab Danette Maxwell STORAGE MANAGEMENT ARCHITECT CHEMISTRY ORDERABLES Performing Organization Address City/State/ZIP [place] [address] documented in this encounter Visit Diagnoses Diagnosis Chronic systolic heart failure Cardiomyopathy, ischemic Other specified forms of chronic ischemi c heart disease Hx of thyroid cancer Personal history of malignant neoplasm o f thyroid ASHD (arteriosclerotic heart disease) Coronary atherosclerosis of unspecified type of vessel, [place] or graft MARIA VICTORIA (obstructive sleep apnea) on CPAP Obstructive sleep apnea (adult) (pediatr ic) Chronic systolic heart failure documented in this encounter Care Teams Demolitionist Relationship Specialty Start Date End Date Lovely Vicente MD PCP - General 04/16/[address] [place] [address] documented as of this encounter
--- OUTSIDE RECORDS SUMMARY | 2022-04-27 08:13 | XMS_ITS | Encounter Summary ---
:1945 Author Organization [facility] [place] [address] Care Team Providers Name Role Phone Lovely Vicente MD Primary Care Provider Reason for Visit Reason Comments Skin Check Encounter Details Date Type Department Care Team Description 07/06/2018 Office Visit Dermatology at [facility], Rigoberto Yarbrough (actinic keratosis); MD SHAY Quick III (seborrheic keratosis); [address] [place] History of melanoma; [place] [address] Skin exam for malignant neoplasm [phone] [facility] [place], [place] [address] Social History Tobacco Use Types [...] Dolan MD [facility] Dr [place], [place] [address] (Wo rk) 05/28/2022 Laboratory Appointment Lab 05/28/2022 Office Visit Cardiology Zulma Dolan MD [facility] [place] [address] Liz Poole PA [facility] [place] [address] 06/10/2022 Office Visit Dermatology Laura Scherer MD [facility] DR [address] [place], [place] [address] (Wo rk) documented as of this encounter Visit Diagnoses Diagnosis AK (actinic keratosis) Actinic keratosis SK (seborrheic keratosis) Other seborrheic keratosis History of melanoma Personal history of malignant melanoma o f skin Skin exam for malignant neoplasm Screening for malignant neoplasm of the skin documented in this encounter Care Teams Microbiological Laboratory Technician Relationship Specialty Start Date End Date Lovely Vicente MD PCP - General 04/16/[address] [place] [address] documented as of this encounter
--- OUTSIDE RECORDS SUMMARY | 2022-04-27 08:13 | XMS_ITS | Encounter Summary ---
:1945 Author Organization [facility] [place] [address] Care Team Providers Name Role Phone Lovely Vicente MD Primary Care Provider Encounter Details Date Type Department Care Team Description 08/15/2018 Office Visit Cardiology at [facility] Danette Maxwell Chronic systolic heart failu re; [facility] A, HIM SPECIALIST Cardiomyopathy, ischemic; [facility] ASCVD (arteriosclerotic card iovascular disease); [place], [place] Essential hypertension; [phone] CARDIOLOGY MARIA VICTORIA on CPAP [phone] [place], [place] [address] Social History Tobacco [...] in this encounter Progress Notes Danette Maxwell, HIM SPECIALIST - 08/15/2018 9:00 AM EST Images [...] K+ 4.6 today 6. Post-op atrial fibrillation [id number] (CHF, HTN, DM, vascular disease, thromboembolism) Amiodarone discontinued Continue coumadin INR managed by PCP. 2.1 today 7. PAD 08/06/2017: Right 1st, 2nd, 3rd toe amputation 08/11/2017: Left??femoral arterial access, RLE??angiogram, Balloon angioplasty of R PT with Eleazar 2.5 x 80 10/25/2017: right popliteal-pedal bypass at [facility] 8. Hypothyrodism S/p thyroidectomy for [...] [facility] [address] [place] [address] (Wo rk) 05/28/2022 Laboratory Appointment Lab 05/28/2022 Office Visit Cardiology Zulma Dolan MD [facility] [place] [address] Liz Poole PA [facility] [place] [address] 06/10/2022 Office Visit Dermatology Laura Scherer MD [facility] ER [address] OLOG[address] [place], [place] [address] (Wo rk) documented as of this encounter Results Lipid Panel (08/15/2018 8:04 AM EST) athologist Signature Chol, Total 75 mg/dL [facility] Comment: Lower Risk: <200 mg/dL Average Risk: 200-239 mg/dL Higher Risk: >tq=426 mg/dL Triglycerides 185 mg/dL [facility] Comment: Average Risk/Lower Risk: <150 mg/dL Borderline High Risk: 150-199 mg/dL High Risk: 200-499 mg/dL Very High Risk: >oc=469 mg/dL HDL 32 mg/dL [facility] Comment: Males: ?? Higher Risk: <40 mg/dL Females: ?? HIgher Risk: <50 mg/dL LDL Cholesterol 6 mg/dL [facility] Comment: Lowest Risk: <100 mg/dL Lower Risk: 100-129 mg/dL Borderline High Risk: 130-159 mg/dL High Risk: 160-189 mg/dL Very High Risk: >rc=933 mg/dL Chol/HDL Ratio 2.3 ratio [facility] Lipid Interpretation See Note [facility] Comment: Lipid management should be guided by a p atient? s ASCVD risk, goals and preferences. ACC/AHA Guidelines recommend high intens ity statin if clinical ASCVD or LDL greater than or equal to 190 mg/dL. http://Sales Force Europeurl.com/IGD-KKM-Sxqeyafaw Adults aged 40-75 with LDL 70-189 mg/dL should have their 10 year ASCVD risk estimated with the ACC/AHA ASCVD risk es timator http://tools.acc.org/JMRLQ-Gjzu-Khkjzjzp r/ Statin should be discussed if risk [...] Organization Address City/State/[place] [address] (ABNORMAL) Basic Metabolic Panel (non-fasting) (08/15/2018 8:04 AM EST) P athologist Signature Glucose Lvl 116 65 - 199 [facility] mg/dL [facility] Comment: Diabetes: >=200 [...] of body mass or the acutely ill. http://Insurance Noodle/[facility] AR[facility]OREnkf eGFR 79 >=60 mL/min/1.73 m?? [facility] Comment: The eGFR was calculated using the CKD-EP I equation. As with all creatinine based estimates of kidney function, eGFR values calculated with the CKD-EPI equation are not accurate in patients wi th acute kidney failure, extremes of body mass or the acutely ill. http://Ins[employer] Noodle/[facility]OR[facility]kf Specimen Anatomical Collection Method Collection Time Receive d Time (Source) Location / / Volume Laterality Blood specimen 08/15/2018 8:04 AM 019 8:20 (specimen) EST AM EST Resulting Agency Comment Spec In Lab Danette Maxwell APRN CHEMISTRY ORDERABLES Performing Organization Address City/State/ZIP Code Phon e Number [address] (ABNORMAL) pro-Brain Natriuretic Peptide (08/15/2018 8:04 AM EST) P athologist Signature ProBNP 1,797 (H) <=125 [facility] pg[facility]mL [facility] Specimen Anatomical Collection Method Collection Time Receive d Time (Source) Location / / Volume Laterality Blood specimen 08/15/2018 8:04 AM 019 8:20 (specimen) EST AM EST Resulting Agency Comment Spec In Lab Danette Maxwell APRN CHEMISTRY ORDERABLES Performing Organization Address City/State/[place] [address] documented in this encounter Visit Diagnoses Diagnosis Chronic systolic heart failure Cardiomyopathy, ischemic Other specified forms of chronic ischemi c heart disease ASCVD (arteriosclerotic cardiovascular d isease) Unspecified cardiovascular disease Essential hypertension Unspecified essential hypertension MARIA VICTORIA on CPAP Obstructive sleep apnea (adult) (pediatr ic) documented in this encounter Care Teams Bindery Leadperson Relationship Specialty Start Date End Date Lovely Vicente MD PCP - General 04/16/[address] [place] [address] documented as of this encounter
--- OUTSIDE RECORDS SUMMARY | 2022-04-27 08:13 | XMS_ITS | Encounter Summary ---
:1945 Author Organization [place] [place] [address] Care Team Providers Name Role Phone Lovely Vicente MD Primary Care Provider Encounter Details Date Type Department Care Team Description 08/15/2018 Laboratory Lab 3L K[place]ina Chronic systoli c heart failure; Appointment [facility] ASCVD (ar teriosclerotic cardiovascular disease) [place] [address] Social History Tobacco Use Types [...] Dolan MD [facility] er [place], [place] [address] (Wo rk) 05/28/2022 Laboratory Appointment Lab 05/28/2022 Office Visit Cardiology Zulma Dolan MD [facility] [place] [address] Liz Poole PA [facility] [place] [address] 06/10/2022 Office Visit Dermatology Laura Scherer MD [facility] ER DR [address] GR[address]DERMAT [place], [place] [address] (Wo rk) documented as of [...] Glucose Lvl 116 65 - 199 [facility] mg/dL [facility] Comment: Diabetes: [...] of body mass or the acutely ill. http://Zhuhai OmeSoft/[facility] NORMANnkf eGFR 79 >=60 mL/min/1.73 m?? [facility] Comment: The eGFR was calculated using the CKD-EP I equation. As with all creatinine based estimates of kidney function, eGFR values calculated with the CKD-EPI equation are not accurate in patients wi th acute kidney failure, extremes of body mass or the acutely ill. http://Zhuhai OmeSoft/[facility] NORMANnkf Specimen Anatomical Collection Method Collection Time Receive d Time (Source) Location / / Volume Laterality Blood specimen 08/15/2018 8:04 AM 019 8:20 (specimen) EST AM EST Resulting Agency Comment Spec In Lab Danette Maxwell APRN CHEMISTRY ORDERABLES Performing Organization Address City/State/[place] [address] Lipid Panel (08/15/2018 8:04 AM EST) P athologist Signature Chol, Total 75 mg/dL [facility] Comment: Lower Risk: <200 mg/dL Average Risk: 200-239 mg/dL Higher Risk: >ai=672 mg/dL Triglycerides 185 mg/dL [facility] Comment: Average Risk/Lower Risk: <150 mg/dL Borderline High Risk: 150-199 mg/dL High Risk: 200-499 mg/dL Very High Risk: >ty=421 mg/dL HDL 32 mg/dL [facility] Comment: Males: ?? Higher Risk: <40 mg/dL Females: ?? HIgher Risk: <50 mg/dL LDL Cholesterol 6 mg/dL [facility] Comment: Lowest Risk: <100 mg/dL Lower Risk: 100-129 mg/dL Borderline High Risk: 130-159 mg/dL High Risk: 160-189 mg/dL Very High Risk: >pg=941 mg/dL Chol/HDL Ratio 2.3 ratio [facility] Lipid Interpretation See Note [facility] Comment: Lipid management should be guided by a p atient? s ASCVD risk, goals and preferences. ACC/AHA Guidelines recommend high intens ity statin if clinical ASCVD or LDL greater than or equal to 190 mg/dL. http://Innohat.com/INC-ZDP-Ptelcbfur Adults aged 40-75 with LDL 70-189 mg/dL should have their 10 year ASCVD risk estimated with the ACC/AHA ASCVD risk es timator http://tools.acc.org/JTLAX-Jyrx-Ovcclbfo r/ Statin should be discussed if risk [...] Organization Address City/State/[place] [address] (ABNORMAL) pro-Brain Natriuretic Peptide (08/15/2018 8:04 AM EST) athologist Signature ProBNP 1,797 (H) <=125 [facility] pg/mL [facility] Specimen Anatomical Collection Method Collection Time Receive d Time (Source) Location / / Volume Laterality Blood specimen 08/15/2018 8:04 AM 019 8:20 (specimen) EST AM EST Resulting Agency Comment Spec In Lab Danette Maxwell APRN CHEMISTRY ORDERABLES Performing Organization Address City/State/[place] [address] documented in this encounter Visit Diagnoses Diagnosis Chronic systolic heart failure ASCVD (arteriosclerotic cardiovascular d isease) Unspecified cardiovascular disease documented in this encounter Care Teams Computerized Table Cutter Relationship Specialty Start Date End Date Lovely Vicente MD PCP - General 04/16/[address] [place] [address] documented as of this encounter
--- OUTSIDE RECORDS SUMMARY | 2022-04-27 08:14 | XMS_ITS | Encounter Summary ---
:1945 Author Organization [facility] [address] Care Team Providers Name Role Phone Lovely Vicente MD Primary Care Provider Encounter Details Date Type Department Care Team Description 08/19/2017 Hospital En[place] [facility] Martha Teague, S/P CABG x [address] [facility] [place] [address] [place] [address] RD [phone] [facility] [place], [place] [address] (Wo rk) Social History [...] Cardiology Zulma Dolan MD [facility] [place], [place] [address] (Wo rk) 05/28/2022 Laboratory Appointment Lab 05/28/2022 Office Visit Cardiology Zulma Dolan MD [facility] [place] [place] [address] Liz Poole PA [facility] [place] [address] 06/10/2022 Office Visit Dermatology Laura Scherer MD [facility] DR [address]MAT [address]LOG[address] [place], [place] [address] (Wo rk) documented as [...] 2017 EXAMINATION: XR CHEST PA AND LATERAL (Aastrom BiosciencesIC) CLINICAL HISTORY: CABG x 3 TECHNIQUE: [...] status documented in this encounter Care Teams Nanofabrication Specialist Relationship Specialty Start Date End Date Lovely Vicente MD PCP - General 04/16/[address] [place], [place] [address]Y [facility] 1 [place] [address] documented as of this encounter
--- OUTSIDE RECORDS SUMMARY | 2022-04-27 08:14 | XMS_ITS | Encounter Summary ---
:1945 Author Organization [facility] [place] [address] Care Team Providers Name Role Phone Lovely Vicente MD Primary Care Provider Encounter Details Date Type Department Care Team Description 09/06/2017 Orders Only Vascular Surgery at [facility] Ninfa Clark, [facility] [place] [address] Social History Tobacco Use Types Packs/Day [...] [facility] er [place], [place] [address] (Wo rk) 05/28/2022 Laboratory Appointment Lab 05/28/2022 Office Visit Cardiology Zulma Dolan MD [facility] [place] [address] Liz Poole PA [facility] [place] [address] 06/10/2022 Office Visit Dermatology Laura Scherer MD [facility] DR [address] GR[address]DERMAT [place], [place] [address] (Wo rk) documented as of this encounter Visit Diagnoses Not on filedocumented in this encounter Care Teams Applications Tester Relationship Specialty Start Date End Date Lovely Vicente MD PCP - General 04/16/[address] [place] [address] documented as of this encounter
--- OUTSIDE RECORDS SUMMARY | 2022-04-27 08:14 | XMS_ITS | Encounter Summary ---
:1945 Author Organization [facility] [place] [address] Care Team Providers Name Role Phone Lovely Vicente MD Primary Care Provider Encounter Details Date Type Department Care Team Description 11/29/2017 Hospital Encounter Vascular Lab at Janett Walter PAD (peripheral [facility] artery [facility] [place] [address] Social History Tobacco Use Types Packs/Day Years [...] [facility] [place], [place] [address] (Wo rk) 05/28/2022 Laboratory Appointment Lab 05/28/2022 Office Visit Cardiology Zulma Dolan MD [facility] [place] [address] Liz Poole PA [facility] [place] [address] 06/10/2022 Office Visit Dermatology Laura Scherer MD [facility] [address] [place], [place] [address] (Wo rk) documented as [...] [facility] Range Method Time Signature VB Text Department: Vascular Surgery Lab VASCUBASE Report Patient: [id number] (DON HOANG) CPT: 72743 ICD10: I72.4;I73.9 Referring Physician: DANETTE MAXWELL ?? [...] unspecified documented in this encounter Care Teams Fine Dining Server Relationship Specialty Start Date End Date Lovely Vicente MD PCP - General 04/16/[address] [place], [place] [address]Y [facility] 1 [place] [address] documented as of this encounter
--- OUTSIDE RECORDS SUMMARY | 2022-04-27 08:14 | XMS_ITS | Encounter Summary ---
:1945 [place] [address] Care Team Providers Name Role Phone Lovely Vicente MD Primary Care Provider Encounter Details Date Type Department Care Team Description 11/29/2017 Hospital Encounter Radiology Library at Estefany Maxwell Pain [facility] AEROSPACE TECHNICIAN [facility] [place] [address] CARDIOLOGY [phone] [place], [place] [address] (Wo rk) Social History Tobacco [...] Dolan MD [facility] [place], [place] [address] (Wo rk) 05/28/2022 Laboratory Appointment Lab 05/28/2022 Office Visit Cardiology Zulma Dolan MD [facility] [place] [address] Liz Poole PA [facility] [place] [address] 06/10/2022 Office Visit Dermatology Laura Scherer MD [facility] DR [address]MAT OLOGY [place], [place] [address] (Wo rk) documented as of [...] Address City/State/ZIP Code Phon e Number [place], [place] documented in this encounter Visit Diagnoses Diagnosis Pain Generalized pain documented in this encounter Care Teams Personnel Records Clerk Relationship Specialty Start Date End Date Lovely Vicente MD PCP - General 04/16/[address] [place] [address] documented as of this encounter
--- OUTSIDE RECORDS SUMMARY | 2022-04-27 08:14 | XMS_ITS | Encounter Summary ---
:1945 Author Organization [facility] [place] [address] Care Team Providers Name Role Phone Lovely Vicente MD Primary Care Provider Encounter Details Date Type Department Care Team Description 10/05/2017 Telephone Cardiology at [facility] Tamiko Sin MD [facility] [place] [address] CARDIOLOGY DEPT [phone] [place], [place] [address] (Wo rk) Social History Tobacco [...] [facility] [place] [address] Liz Poole PA [facility] [place] [address] 06/10/2022 Office Visit Dermatology Laura Scherer MD [facility] ER DR TE[address]MAT [place], [place] [address] (Wo rk) documented as of this encounter Visit Diagnoses Not on filedocumented in this encounter Care Teams Assistant Federal Public Defender Relationship Specialty Start Date End Date Lovely Vicente MD PCP - General 04/16/[address] [place] [address] documented as of this encounter
--- OUTSIDE RECORDS SUMMARY | 2022-04-27 08:14 | XMS_ITS | Encounter Summary ---
:1945 Author Organization [facility] [place] [address] Care Team Providers Name Role Phone Lovely Vicente MD Primary Care Provider Encounter Details Date Type Department Care Team Description 09/07/2017 Office Visit Endocrinology at [facility] Maria Ines Stallings of [facility] [place] [address] CENTER [phone] ENDOCRINOLOGY DEPT [place], [place] [address] Social History Tobacco Use Types [facility] [place], [place] [address] (Wo rk) 05/28/2022 Laboratory Appointment Lab 05/28/2022 Office Visit Cardiology Zulma Dolan MD [facility] [place] [address] Liz Poole PA [facility] [place] [address] 06/10/2022 Office Visit Dermatology Laura Scherer MD [facility] ER DR [address]MAT [place], [place] [address] (Wo rk) documented as of this encounter Visit Diagnoses Diagnosis Hx of papillary thyroid carcinoma Personal history of malignant neoplasm o f thyroid documented in this encounter Care Teams Stamp Mounter Relationship Specialty Start Date End Date Lovely Vicente MD PCP - General 04/16/15 [facility] [address] [place] [address] documented as of this encounter
--- OUTSIDE RECORDS SUMMARY | 2022-04-27 08:14 | XMS_ITS | Encounter Summary ---
:1945 Author Organization [facility] Address [facility] [place] [address] Care Team Providers Name Role Phone Lovely Vicente MD Primary Care Provider Encounter Details Date Type Department Care Team Description 10/07/2017 Office Visit Cardiology at [facility] Danette Maxwell Chronic systolic heart failu re; [facility] A, CARDIOLOGY CONSULTANT S/P CABG x 3; Drive [facility] On amiodarone therapy; [place], [place] Atrial fibrillation, unspecified type; [phone] CARDIOLOGY ASCVD (arteriosclerotic cardiovascular d isease) [phone] [place], [place] [address] Social History Tobacco Use Types [...] - documented in this encounter Progress Notes [place] Danette A, CARDIOLOGY CONSULTANT - 10/07/2017 11:20 AM EDT ID and CC: Don Fatima is a 72 y.o. male presenting for hospital f/u regarding ASCVD, ischemic cardiomyopathy ?? HPI: Mr. 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 Espino On IV antibiotics at [facility] Today: Mr. Fatima is accompanied [...] and bone removal by Dr. Aguero at [facility]. Currently receiving IV antibiotics at [facility] ? Plan: 1. A review [...] Dolan MD [facility] Dr [place], [place] [address] (Wo rk) 05/28/2022 Laboratory Appointment Lab 05/28/2022 Office Visit Cardiology Zulma Dolan MD [facility] [place] [address] Liz Poole PA [facility] [place] [address] 06/10/2022 Office Visit Dermatology Laura Scherer MD [facility] DR [address] [place], [place] 0[address] (Wo rk) documented as of this encounter Results (ABNORMAL) Basic Metabolic Panel (non-fasting) (10/07/2017 8:48 AM EDT) athologist Signature Glucose Lvl 99 65 - 199 [facility] mg/dL [facility] Comment: Diabetes: >=200 mg/dL plus [...] or in patients with acute kidney failure. http://[employer] Entertainment.4moms/DHnkdep http://[employer]/DHMCnkf Specimen Anatomical Collection Method Collection Time Receive d Time (Source) Location / / Volume Laterality Blood specimen 10/07/2017 8:48 AM 018 8:50 (specimen) EDT AM EDT Resulting Agency Comment Spec In Lab Danette Maxwell APRN CHEMISTRY ORDERABLES Performing Organization Address City/State/ZIP [place] [address] (ABNORMAL) pro-Brain Natriuretic Peptide (10/07/2017 8:48 AM EDT) P athologist Signature ProBNP 1,170 (H) <=125 [facility] pg/mL [facility] Specimen Anatomical Collection Method Collection Time Receive d Time (Source) Location / / Volume Laterality Blood specimen 10/07/2017 8:48 AM 018 8:50 (specimen) EDT AM EDT Resulting Agency Comment Spec In Lab Danette Maxwell APRN CHEMISTRY ORDERABLES Performing Organization Address City/State/ZIP [place] [address] documented in this encounter Visit Diagnoses Diagnosis Chronic systolic heart failure S/P CABG x 3 Postsurgical aortocoronary bypass status On amiodarone therapy Atrial fibrillation, unspecified type ASCVD (arteriosclerotic cardiovascular d isease) Unspecified cardiovascular disease documented in this encounter Care Teams Attendant Arcade Relationship Specialty Start Date End Date Lovely Vicente MD PCP - General 04/16/[address] [place] [address] documented as of this encounter
--- OUTSIDE RECORDS SUMMARY | 2022-04-27 08:14 | XMS_ITS | Encounter Summary ---
:1945 Author Organization [facility] [place] [address] Care Team Providers Name Role Phone Lovely Vicente MD Primary Care Provider Encounter Details Date Type Department Care Team Description 10/07/2017 Laboratory Appointment Lab 3L [facility] [place] [id number] Social History Tobacco Use Types Packs/Day Years [...] MD [facility] er [place], [place] [address] (Wo rk) 05/28/2022 Laboratory Appointment Lab 05/28/2022 Office Visit Cardiology Zulma Dolan MD [place] [address] Lzi Poole PA [facility] [place] [address] 06/10/2022 Office Visit Dermatology Laura Scherer MD [facility] ER DR TE[address] GR[address]DERMAT ENIDReal [place] Amy (Wo rk) documented as of [...] Signature Glucose Lvl 99 65 - 199 [facility] mg/dL [facility] Comment: Diabetes: >=200 mg/dL plus symp toms BUN 27 (H) 10 - 20 mg/dL [facility] Creatinine 1.07 0.80 - 1.50 mg/dL [facility] [...] mmol/L [facility] Calcium 8.4 (L) 8.5 - 10.5 mg/dL [facility] Estimated GFR >60 >=60 [facility] Comment: The reported eGFR should be multiplied b y 1.2 for patients. The MDRD is not an appropriate measure o f renal function for patients with body mass extremes or in patients with acute kidney failure. http://SodaHead.InstaEDU/DHnkdep http://SodaHead.InstaEDU/DHMCnkf Specimen Anatomical Collection Method Collection Time Receive d Time (Source) Location / / Volume Laterality Blood specimen 10/07/2017 8:48 AM 018 8:50 (specimen) EDT AM EDT Resulting Agency Comment Spec In Lab Danette Maxwell COORDINATOR OF ONLINE PROGRAMS CHEMISTRY ORDERABLES Performing Organization Address City/[facility]/ZIP Code Phon e Number [address] (ABNORMAL) pro-Brain Natriuretic Peptide (10/07/2017 8:48 AM EDT) athologist Signature ProBNP 1,170 (H) <=125 [facility] pg/mL [facility] Specimen Anatomical Collection Method Collection Time Receive d Time (Source) Location / / Volume Laterality Blood specimen 10/07/2017 8:48 AM 018 8:50 (specimen) EDT AM EDT Resulting Agency Comment Spec In Lab Danette A Hans QUINONES CHEMISTRY ORDERABLES Performing Organization Address City/State/[place] [address] documented in this encounter Visit Diagnoses Diagnosis Chronic systolic heart failure documented in this encounter Care Teams Launch Operator Relationship Specialty Start Date End Date Lovely Vicente MD PCP - General 04/16/15 [address] [place] [address] documented as of this encounter
--- OUTSIDE RECORDS SUMMARY | 2022-04-27 08:14 | XMS_ITS | Encounter Summary ---
:1945 Author Organization [facility] [place] [address] Care Team Providers Name Role Phone Lovely Vicente MD Primary Care Provider Reason for Referral Diagnostic Test (Routine) - Closed Specialty Diagnoses / Procedures Referred By Contact Refer red To Contact Cardiology Diagnoses Ischemic cardiomyopathy Acute on chronic systolic congestive heart failure Danette Maxwell APRN [facility] Non-Inv Card Lab Procedures Echocardiogram Transthoracic(Leb) [facility] [place] [address] [place] [address] Referral ID Status Reason Start Date Expiration Date Visits V isits Requested Authorized [id number] Closed Specialty 08/30/2017 08/30/2018 1 1 Service Requested Encounter Details Date Type Department Care Team Description 08/26/2017 Office Visit Cardiology at [facility] Danette Maxwell Ischemic cardiomyopathy; [facility] STACIE Gomes Acute on chronic systolic congestive hea rt failure ; Drive [facility] ASCVD (arteriosclerotic card iovascular disease); [place], [place] PAF (paroxysmal atrial fibrillation); [address] CARDIOLOGY PAD (peripheral artery disease) [phone] [place], [place] [address] Social History Tobacco Use Types Packs/Day Years [...] painful and swollen right foot right d/t WIRER 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 [...] Cardiology Zulma Dolan MD [facility] [place], [place] [address] (Wo rk) 05/28/2022 Laboratory Appointment Lab 05/28/2022 Office Visit Cardiology Zulma Dolan MD [facility] [place] [address] Liz Poole PA [facility] [place] [address] 06/10/2022 Office Visit Dermatology Laura Scherer MD [facility] DR [address] OLOGY [place], [place] [address] (Wo rk) documented as of this encounter Results ECHOCARDIOGRAM COMPLETE W CONTRAST (10/07/2017 10:23 AM EDT) athologist Signature EF 45 [facility] Anatomical Region Laterality Modality Other Specimen (Source) Anatomical Location Collection Method / Collectio n Time Received Time / Laterality Volume 10/07/2017 Narrative 10/07/2017 11:13 AM EDT Procedure: ?Transthoracic Echocardiogram Patient: ?NATALYA Mccollum ? (Age): 1945(72y) Med Rec#: ? [id number] ?Sex: ?M ? Site Loc: ? [facility] ?Ht / Wt: ??173(cm)/82(kg) Pt. Loc: ?Echo Lab ?BSA: ?1.96 Study Date: ?? 10/07/2017 ?Pt. Type: Outpatient Tape: ? Referring: Danette Maxwell Reading: Iker Cuevas ([id number]) Operations Architect: Yonathan Bocanegra Diagnosis: *ICD-10-PCS Ischemic cardiomyopathy (I2 [...] E-wave Vmax ?1.2 ?m/sec ? MV deceleration [id number] ?msec ? MV A-wave Vmax ?1 ?m/sec [...] ? Mid-Inferior ?Hypokinetic ? Mid-Inferoseptal ?Hypokinetic ? [place]-Septal ? Akinetic ? [place]-Anterior ? Hypokinetic ? [place]-Lateral ?Hypokinetic ? [place]-Inferior ? Hypokinetic ? [place]-Tip ?Akinetic ? This report has been electronically sign ed by: _ Iker Cuevas M.D. ? 10/07/2017 11:12:34 Images reviewed and interpretation [facility] Cardiac Ultrasound Laboratory Procedure Note Iker Cuevas MD - 10/07/2017Formatti ng of this note might be different from the original. Procedure: Transthoracic Echocardiogram Patient: NATALYA Mccollum (Age): [birth year]72y) Med Rec#: [id number] Sex: M Site Loc: [facility] Ht / Wt: 173(cm)/82(kg) Pt. Loc: Echo Lab BSA: 1.96 Study Date: 10/07/2017 Pt. Type: Outpati ent Tape: Referring: Danette Maxwell Reading: Iker Cuevas ([id number]) Operations Architect: Yonathan Bocanegra Diagnosis: *ICD-10-PCS Ischemic cardiomyopathy (I2 [...] MV E-wave Vmax 1.2 m/sec MV deceleration [id number] msec MV A-wave Vmax 1 m/sec MV [...] Akinetic Mid-Posterolateral Hypokinetic Mid-Inferior Hypokinetic Mid-Inferoseptal Hypokinetic [place]-Septal Akinetic [place]-Anterior Hypokinetic [place]-Lateral Hypokinetic [place]-Inferior Hypokinetic [place]-Tip Akinetic This report has been electronically sign ed by: _ Iker Cuevas M.D. 10/07/2017 11:12 :34 Images reviewed and interpretation [facility] Danette Maxwell APRN ECHO ORDERABLES Basic Metabolic Panel (non-fasting) (08/26/2017 2:00 PM EST) P athologist Signature Glucose Lvl 98 65 - 199 [facility] mg/dL [facility]ORATORY Comment: Diabetes: >=200 mg/dL plus symp toms BUN 20 10 - 20 mg/dL [facility] Creatinine 1.17 0.80 - 1.50 mg/dL [facility] [...] or in patients with acute kidney failure. http://15MinutesNOW/DHnkdep http://15MinutesNOW/DHMCnkf Specimen Anatomical Collection Method Collection Time Receive d Time (Source) Location / / Volume Laterality Blood specimen 08/26/2017 2:00 PM 018 2:15 (specimen) EST PM EST Resulting Agency Comment Spec In Lab Danette Maxwell APRN CHEMISTRY ORDERABLES Performing Organization Address City/State/ZIP Code Phon e Number [address] (ABNORMAL) pro-Brain Natriuretic Peptide (08/26/2017 2:00 PM EST) P athologist Signature ProBNP 2,373 (H) <=125 [facility] pg/mL [facility] LABORATORY Specimen Anatomical Collection Method Collection Time Receive d Time (Source) Location / / Volume Laterality Blood specimen 08/26/2017 2:00 PM 018 2:15 (specimen) EST PM EST Resulting Agency Comment Spec In Lab Danette Maxwell APRN CHEMISTRY ORDERABLES Performing Organization Address City/State/[place] [address] documented in this encounter [...] failure documented in this encounter Care Teams Cook Supervisor Relationship Specialty Start Date End Date Lovely Vicente MD PCP - General 04/16/[address] [place] [address] documented as of this encounter
--- OUTSIDE RECORDS SUMMARY | 2022-04-27 08:14 | XMS_ITS | Encounter Summary ---
:1945 Author Organization [facility] [place] [address] Care Team Providers Name Role Phone Lovely Vicente MD Primary Care Provider Encounter Details Date Type Department Care Team Description 09/06/2017 Telephone Vascular Surgery at [facility] Ninfa Clark, [place] [address] Social History Tobacco Use Types Packs/Day [...] Cardiology Zulma Dolan MD [facility] [place], [place] [address] (Wo rk) 05/28/2022 Laboratory Appointment Lab 05/28/2022 Office Visit Cardiology Zulma Dolan MD [facility] [place] [address] Liz Poole PA [facility] [place] [address] 06/10/2022 Office Visit Dermatology Laura Scherer MD [facility] [address] [place], [place] [address] (Wo rk) documented as of this encounter Visit Diagnoses Not on filedocumented in this encounter Care Teams Flask Fitter Relationship Specialty Start Date End Date Lovely Vicente MD PCP - General 04/16/[address] [place] [address] documented as of this encounter
--- OUTSIDE RECORDS SUMMARY | 2022-04-27 08:14 | XMS_ITS | Encounter Summary ---
:1945 Author Organization [facility] [place] [address] Care Team Providers Name Role Phone Lovely Vicente MD Primary Care Provider Encounter Details Date Type Department Care Team Description 09/16/2017 Hospital [place] [address] Social History Tobacco Use Types Packs/Day [...] Zulma Dolan MD [facility] [place], [place] [address] (Wo rk) 05/28/2022 Laboratory Appointment Lab 05/28/2022 Office Visit Cardiology Zulma Dolan MD [facility] [place] [address] Liz Poole PA [facility] [place] [place] [address] 06/10/2022 Office Visit Dermatology Laura Scherer MD [facility] [address] [place], [place] [address] (Wo rk) documented as of this encounter Procedures Procedure Name Priority Date/Time Associated Diagnosis Comme [facility] SURGICAL PATHOLOGY Routine 09/16/2017 7:28 AM Res ults for this REPORT EST procedure are i n the results section. documented in this encounter Results Surgical Pathology Report (09/16/2017 7:28 AM EST) Component Value Ref Test Analysis Performed At [facility] Method Time Signature Surgical [id number] ? Location: [facility] Pathology MINETTO Report The signing pathologist has (i) examined [...] Henrique Flower Verified: ??09/24/2017 ?Pathologist Performed at: ??-[facility] Dept. of Pathology, [place], [place] CLINICAL INFORMATION Specimen Submitted: A [...] [place] [address] documented in this encounter Visit Diagnoses Not on filedocumented in this encounter Care Teams Soaking Pits Supervisor Relationship Specialty Start Date End Date Lovely Vicente MD PCP - General 04/16/[address] [place] [address] documented as of this encounter
--- OUTSIDE RECORDS SUMMARY | 2022-04-27 08:14 | XMS_ITS | Encounter Summary ---
:1945 Author Organization [facility] [address] Care Team Providers Name Role Phone Lovely Vicente MD Primary Care Provider Reason for Referral Consultation (Routine) - Specialty Diagnoses / Procedures Referred By Contact Refer red To Contact [facility] Diagnoses Atheroembolism of foot, right Delayed surgical wound healing, subsequent encounter Aurelia Rivera PA [address] [facility] [place] [address] Referral ID Status Reason Start Date Expiration Date Visits V isits Requested Authorized [id number] Consult, 09/08/2017 03/07/2018 1 1 Test & Treat Reason for Visit Reason Comments Wound Check My foot hurts Encounter Details Date Type Department Care Team Description 09/07/2017 Office Visit Vascular Surgery at MiguelAurelia PA Atheroembolism of foot, right; [facility] Delayed surgical wound healing, subseque nt encounter [facility] [place] [address] [phone] Social History Tobacco Use Types Packs/Day Years [...] at home for VAC dressing changes from [facility]. Since his last visit his right forefoot wound [facility] better seal [...] [facility] MAIN OR ??? PRO AMPUTATION FOOT, TRANSMETATARSAL Right 08/09/2017 AMPUTATION, TRANSMETATARSAL (WRVU 12.71) performed by Yonathan Smith MD at [facility] MAIN OR ??? PRO CABG, ARTERIAL, SINGLE N/A 07/07/2017 @CABG, USING ARTERIAL GRAFT;SINGLE ARTERIAL GRAFT (WRVU 33.75) performed by Yuan Retana MD at [facility] MAIN OR ??? PRO CABG, ARTERY-VEIN, TWO N/A 07/07/2017 @CABG, TWO VENOUS GRAFTS & ARTERIAL GRAFT (WRVU 7.93) performed by Yuan Retana MD at [facility] MAIN OR ??? PRO COLONOSCOPY, REMV LESN, SNARE 01/16/2014 COLONOSCOPY, POLYPECTOMY, REMOVAL LESION BY SNARE performed by Nohemi Jaimes MD at [facility] ENDOSCOPY ??? PRO DRESSING CHANGE UNDER ANESTHESIA Right 08/11/2017 (MSURG) DRESSING CHANGE (FOR OTHER THAN IAVN) UNDER ANES. (WRVU 0.86) performed by Lamar Smith MD at [facility] MAIN OR ??? PRO ENDOSCOPY W/VIDEO-ASST VEIN HARVEST, CABG Right 07/07/2017 ENDOSCOPIC HARVEST VEIN(S) FOR CABG (WRVU 0.31) performed by Yuan Retana MD at [facility] MAIN OR ??? PRO THYROIDECTOMY 03/28/2013 THYROIDECTOMY, TOTAL OR COMPLETE performed by Manny Mcknight MD at [facility] OR Social Hx: Social History Substance [...] Dolan MD [facility] [place], [place] [address] (Wo rk) 05/28/2022 Laboratory Appointment Lab 05/28/2022 Office Visit Cardiology Zulma Dolan MD [facility] [place] [address] Liz Poole PA [facility] [place] [address] 06/10/2022 Office Visit Dermatology Laura Scherer MD [facility] [address] [place]LOG[place], [place] [address] (Wo rk) Scheduled Referrals Name Type Priority Associated Diagnoses Order S chedule Referral to Wound Outpatient Referral Routine Atheroembolism o f foot, Ordered: Clinic right 09/08/2017 Delayed surgical wound healing, subsequent encounter documented as of this encounter Visit Diagnoses Diagnosis Atheroembolism of foot, right Delayed surgical wound healing, subseque nt encounter documented in this encounter Care Teams Iuss Acoustic Analyst Relationship Specialty Start Date End Date Lovely Vicente MD PCP - General 04/16/[address] [place] [address] documented as of this encounter
--- OUTSIDE RECORDS SUMMARY | 2022-04-27 08:14 | XMS_ITS | Encounter Summary ---
:1945 Author Organization [facility] [place] [address] Care Team Providers Name Role Phone Lovely Vicente MD Primary Care Provider Reason for Referral Diagnostic Test (Routine) - Specialty Diagnoses / Procedures Referred By Contact Refer red To Contact Cardiology Diagnoses Chronic systolic heart failure Danette Maxwell APRN [facility] Non-Inv Card Lab Procedures Echocardiogram Transthoracic(Leb) [facility] [place] [address] [place] [address] Referral ID Status Reason Start Date Expiration Visits Visits Date Requested Authorized [id number] Specialty 08/15/2018 08/15/2018 1 1 Service Requested Encounter Details Date Type Department Care Team Description 04/18/2018 Office Visit Cardiology at [facility] Danette Maxwell Chronic systolic heart failu re; [facility] STACIE Gomes On amiodarone therapy; [facility] Ischemic cardiomyopathy; [place], [place] DR ONOFRE (arteriosclerotic cardiovascular d isease) [id number] CARDIOLOGY [phone] [place], [place] [address] Social History Tobacco Use Types Packs/Day Years [...] in this encounter Progress Notes Danette Maxwell, ADVANCE AGENT - 04/18/2018 10:40 AM EDT ID and [...] RLE??angiogram, Balloon angioplasty of R PT with Elaezar 2.5 x 80 10/25/2017: right popliteal-pedal bypass at [facility] ? Plan: 1. A review of [...] Dolan MD [facility] [address], [place] [address] (Wo rk) 05/28/2022 Laboratory Appointment Lab 05/28/2022 Office Visit Cardiology Zulma Dolan [place] [address] Liz Poole PA [facility] [place] [address] 06/10/2022 Office Visit Dermatology Laura Scherer MD [facility] [address] [place], [place] [address] (Wo rk) documented as of this encounter Results ECHOCARDIOGRAM COMPLETE W CONTRAST (08/15/2018 7:55 AM EST) P athologist Signature EF 35 HEARTLAB SYSTEM Anatomical Region Laterality Modality Other Specimen (Source) Anatomical Location Collection Method / Collectio n Time Received Time / Laterality Volume 08/15/2018 Narrative 08/15/2018 8:18 AM EST Procedure: ?Transthoracic Echocardiogram Patient: ?NATALYA Mccollum ? (Age): 1945(73y) Med Rec#: ? [id number] ?Sex: ?M ? Site Loc: ? [facility] ?Ht / Wt: ??172(cm)/81(kg) Pt. Loc: ?Echo Lab ?BSA: ?1.94 Study Date: ?? 08/15/2018 ?Pt. Type: Outpatient Tape: ? Referring: MARY ELLEN Reading: Scott Ortega ([id number]) Lumber Checker: Laura Sargent Diagnosis: *Chronic systolic (congestive) heart [...] E-wave Vmax ?1.2 ?m/sec ? MV deceleration rvvr395.4 ? msec ? MV A-wave Vmax ?0.7 [...] ? Mid-Inferior ?Hypokinetic ? Mid-Inferoseptal ?Hypokinetic ? [place]-Septal ? Akinetic ? [place]-Anterior ? Hypokinetic ? [place]-Lateral ?Akinetic ? [place]-Inferior ? Hypokinetic ? [place]-Tip ?Akinetic ? This report has been electronically sign ed by: _ Scott Ortega M.D. ? 08/15/2018 08:17:26 Images reviewed and interpretation verif ied [facility] Cardiac Ultrasound Laboratory Procedure Note Scott Ortega MD - 08/15/2018Format ting of this note might be different from the original. Procedure: Transthoracic Echocardiogram Patient: NATALYA MCBRIDE(Age): [birth year]73y) Med Rec#: [id number] Sex: M Site Loc: [facility] Ht / Wt: 172(cm)/81(kg) Pt. Loc: Echo Lab BSA: 1.94 Study Date: 08/15/2018 Pt. Type: Outpati ent Tape: Referring: MARY ELLEN Reading: Scott Ortega ([id number]) Lumber Checker: Laura Sargent Diagnosis: *Chronic systolic (congestive) heart [...] MV E-wave Vmax 1.2 m/sec MV deceleration ubzy302.4 msec MV A-wave Vmax 0.7 m/sec MV [...] Akinetic Mid-Posterolateral Akinetic Mid-Inferior Hypokinetic Mid-Inferoseptal Hypokinetic [place]-Septal Akinetic [place]-Anterior Hypokinetic [place]-Lateral Akinetic [place]-Inferior Hypokinetic [place]-Tip Akinetic This report has been electronically sign ed by: _ Scott Ortega M.D. 08/15/2018 08:17: 26 Images reviewed and interpretation verif ied [facility] Cardiac Ultrasound Laboratory Danette Maxwell APRN ECHO ORDERABLES (ABNORMAL) Basic Metabolic Panel (non-fasting) (04/18/2018 9:19 AM EDT) P athologist Signature Glucose Lvl 167 65 - 199 [facility] mg/dL [facility] Comment: [...] mmol/L [facility] Anion Gap 23 (H) 5 - 15 mmol/L [facility] Calcium 9.3 8.5 - 10.5 mg/dL [facility] Estimated GFR 61 >=60 mL/min/1.73 m?? [facility] Comment: The eGFR was calculated using the CKD-EP I equation. As with all creatinine based estimates of kidney function, eGFR values calculated with the CKD-EPI equation are not accurate in patients wi th acute kidney failure, extremes of body mass or the acutely ill. http://TellMi/[facility] eGFR 70 >=60 mL/min/1.73 m?? [facility] Comment: The eGFR was calculated using the CKD-EP I equation. As with all creatinine based estimates of kidney function, eGFR values calculated with the CKD-EPI equation are not accurate in patients wi th acute kidney failure, extremes of body mass or the acutely ill. http://TellMi/[facility] Specimen Anatomical Collection Method Collection Time Receive d Time (Source) Location / / Volume Laterality Blood specimen 04/18/2018 9:19 AM 018 9:34 (specimen) EDT AM EDT Resulting Agency Comment Spec In Lab Danette Maxwell APRN CHEMISTRY ORDERABLES Performing Organization Address City/State/[place] [address] (ABNORMAL) pro-Brain Natriuretic Peptide (04/18/2018 9:19 AM EDT) P athologist Signature ProBNP 2,199 (H) <=125 [facility] pg/mL [facility] Specimen Anatomical Collection Method Collection Time Receive d Time (Source) Location / / Volume Laterality Blood specimen 04/18/2018 9:19 AM 018 9:34 (specimen) EDT AM EDT Resulting Agency Comment Spec In Lab Danette Maxwell APRN CHEMISTRY ORDERABLES Performing Organization Address City/State/[place] [address] documented in this encounter Visit Diagnoses Diagnosis Chronic systolic heart failure On amiodarone therapy Ischemic cardiomyopathy Other specified forms of chronic ischemi c heart disease ASCVD (arteriosclerotic cardiovascular d isease) Unspecified cardiovascular disease Chronic systolic heart failure documented in this encounter Care Teams Manufacturing Executive Relationship Specialty Start Date End Date Lovely Vicente MD PCP - General 04/16/[address] [place] [address] documented as of this encounter
--- OUTSIDE RECORDS SUMMARY | 2022-04-27 08:14 | XMS_ITS | Encounter Summary ---
:1945 Author Organization [facility] [place] [address] Care Team Providers Name Role Phone Lovely Vicente MD Primary Care Provider Encounter Details Date Type Department Care Team Description 08/25/2017 Telephone Pain Management at [facility] [place], [place] [address] Social History Tobacco Use Types Packs/Day [...] Management Center Preauthorization Request Patient: Don Fatima [id number] Fax received from [employer] denying prior authorization for Lidocaine Patches prescribed by Barbra Soares APRN. RX insurance plan: [employer] RX insurance telephone: [phone] Patient Diagnosis: right foot pain secondary to PVD and ischemia ? Previous medications attempted: Tylenol, Tramadol, Dilaudid Authorization/Reference number: [id number] _x_ denied, provider and patient informed _x_ appeal initiated by provider, patient informed Angeles Rodrigez, RN documented in this encounter Plan of Treatment Upcoming Encounters Date Type Specialty Care Team Description 05/28/2022 Appointment Cardiology Zulma Dolan MD [facility] [place], [place] [address] (Wo rk) 05/28/2022 Laboratory Appointment Lab 05/28/2022 Office Visit Cardiology Zulma Dolan MD [facility] [place] [address] Liz Poole PA [facility] [place] [address] 06/10/2022 Office Visit Dermatology Laura Scherer MD [facility] [address] [place], [place] [address] (Wo rk) documented as of this encounter Visit Diagnoses Not on filedocumented in this encounter Care Teams Tableau Lead Relationship Specialty Start Date End Date Lovely Vicente MD PCP - General 04/16/[address] [place] [address] documented as of this encounter
--- OUTSIDE RECORDS SUMMARY | 2022-04-27 08:14 | XMS_ITS | Encounter Summary ---
:1945 Author Organization [place] [address] Care Team Providers Name Role Phone Lovely Vicente MD Primary Care Provider Reason for Referral Diagnostic Test (Routine) - Closed Specialty Diagnoses / Procedures Referred By Contact Refer red To Contact Cardiology Diagnoses Ischemic cardiomyopathy Acute on chronic systolic congestive heart failure Danette Maxwell APRN [facility] Non-Inv Card Lab Procedures Echocardiogram Transthoracic(Leb) [facility] [place] [address] [place] [address] Referral ID Status Reason Start Date Expiration Date Visits V isits Requested Authorized [id number] Closed Specialty 08/30/2017 08/30/2018 1 1 Service Requested Reason for Visit Diagnostic Test (Routine) - Closed Specialty Diagnoses / Procedures Referred By Contact Refer red To Contact Cardiology Diagnoses Ischemic cardiomyopathy Acute on chronic systolic congestive heart failure Danette Maxwell APRN [facility] Non-Inv Card Lab Procedures Echocardiogram Transthoracic(Leb) [facility] [place] [address] [place] [address] Referral ID Status Reason Start Date Expiration Date Visits V isits Requested Authorized [id number] Closed Specialty 08/30/2017 08/30/2018 1 1 Service Requested Encounter Details Date Type Department Care Team Description 10/07/2017 Hospital Encounter Non-Invasive Ischemic cardiomyopathy; Cardiology Lab Barbara Craig on chronic systolic [place] [address] Social History Tobacco Use Types Packs/Day [...] 05/28/2022 Appointment Cardiology Zulma Dolan MD [facility] [address], [place] [address] (Wo rk) 05/28/2022 Laboratory Appointment Lab 05/28/2022 Office Visit Cardiology Zulma Dolan MD [facility] [place] [address] Liz Poole PA [facility] [place] [address] 06/10/2022 Office Visit Dermatology Laura Scherer MD [facility] [address] [place], [place] [address] (Wo [...] Mccollum ? (Age): 1945(72y) Med Rec#: ? [id number] ?Sex: ?M ? Site Loc: ? [facility] ?Ht / Wt: ??173(cm)/82(kg) Pt. Loc: ?Echo Lab ?BSA: ?1.96 Study Date: ?? 10/07/2017 ?Pt. Type: Outpatient Tape: ? Referring: Danette Maxwell Reading: Iker Cuevas ([id number]) Drift Miner: Yonathan Bocanegra Diagnosis: *ICD-10-PCS Ischemic cardiomyopathy (I2 [...] E-wave Vmax ?1.2 ?m/sec ? MV deceleration [id number] ?msec ? MV A-wave Vmax ?1 ?m/sec [...] ? Mid-Inferior ?Hypokinetic ? Mid-Inferoseptal ?Hypokinetic ? [place]-Septal ? Akinetic ? [place]-Anterior ? Hypokinetic ? [place]-Lateral ?Hypokinetic ? [place]-Inferior ? Hypokinetic ? [place]-Tip ?Akinetic ? This report has been electronically sign ed by: _ Iker Cuevas M.D. ? 10/07/2017 11:12:34 Images reviewed and interpretation verif ied [facility] Cardiac Ultrasound Laboratory Procedure Note Iker Cuevas MD - 10/07/2017Formatti ng of this note might be different from the original. Procedure: Transthoracic Echocardiogram Patient: NATALYA MCBRIDE(Age): [birth year]72y) Med Rec#: [id number] Sex: M Site Loc: [facility] Ht / Wt: 173(cm)/82(kg) Pt. Loc: Echo Lab BSA: 1.96 Study Date: 10/07/2017 Pt. Type: Outpati ent Tape: Referring: Danette Maxwell Reading: Iker Cuevas ([id number]) Drift Miner: Yontahan Bocanegra Diagnosis: *ICD-10-PCS Ischemic cardiomyopathy (I2 5.5) [...] MV E-wave Vmax 1.2 m/sec MV deceleration [id number] msec MV A-wave Vmax 1 m/sec MV [...] Akinetic Mid-Posterolateral Hypokinetic Mid-Inferior Hypokinetic Mid-Inferoseptal Hypokinetic [place]-Septal Akinetic [place]-Anterior Hypokinetic [place]-Lateral Hypokinetic [place]-Inferior Hypokinetic [place]-Tip Akinetic This report has been electronically sign ed by: _ Iker Cuevas M.D. 10/07/2017 11:12 :34 Images reviewed and interpretation elvie hwang [facility] Cardiac Ultrasound Laboratory [...] Routine documented in this encounter Care Teams Telescope Maintenance Relationship Specialty Start Date End Date Lovely Vicente MD PCP - General 04/16/[address] [place] [address] documented as of this encounter
--- OUTSIDE RECORDS SUMMARY | 2022-04-27 08:14 | XMS_ITS | Encounter Summary ---
:1945 Author Organization [place] [address] Care Team Providers Name Role Phone Lovely Vicente MD Primary Care Provider Encounter Details Date Type Department Care Team Description 08/30/2017 [facility] ischemia [facility] [address] [place] VASCULAR SURGERY [address] [place] [address] [phone] Social History Tobacco Use Types Packs/Day Years [...] Smith MD - 08/30/2017 2:00 PM EST [facility] staff: Patient returns. He is [...] Zulma Dolan MD [facility] [address] [place], [place] [address] (Wo rk) 05/28/2022 Laboratory Appointment Lab 05/28/2022 Office Visit Cardiology Zulma Dolan MD [facility] [place] [address] Liz Poole PA [facility] [place] [address] 06/10/2022 Office Visit Dermatology Laura Scherer MD [facility] [address] [place], [place] [address] (Wo rk) documented as of this encounter Visit Diagnoses Diagnosis Critical lower limb ischemia Unspecified circulatory system disorder documented in this encounter Care Teams Warehouse Team Member Relationship Specialty Start Date End Date Lovely Vicente MD PCP - General 04/16/[address] [place] [address] documented as of this encounter
--- OUTSIDE RECORDS SUMMARY | 2022-04-27 08:14 | XMS_ITS | Encounter Summary ---
:1945 Author Organization [place] [address] Care Team Providers Name Role Phone Lovely Vicente MD Primary Care Provider Reason for Visit Reason Onset Date Comments Other 11/11/2017 Please call [facility] Encounter Details Date Type Department Care Team Description 11/11/[address] [facility] Danette Maxwell, Other (Please call [facility] CLIENT EXPERIENCE MANAGER [facility] ) [place] [address] CARDIOLOGY [place], [place] [address] (Wo rk) Social History [...] Zulma Dolan MD [facility] [address] [place], [place] [address] (Wo rk) 05/28/2022 Laboratory Appointment Lab 05/28/2022 Office Visit Cardiology [place]ulma [place]olan [place] [address] Liz Poole PA [facility] [place] [address] 06/10/2022 Office Visit Dermatology Laura Scherer MD [facility] [address] [place], [place] [address] (Wo rk) documented as of this encounter Visit Diagnoses Not on filedocumented in this encounter Care Teams Hoop Maker Relationship Specialty Start Date End Date Lovely Vicente MD PCP - General 04/16/15 [facility] [address] [place] [address] documented as of this encounter
--- OUTSIDE RECORDS SUMMARY | 2022-04-27 08:14 | XMS_ITS | Encounter Summary ---
:1945 Author Organization [place] [address] Care Team Providers Name Role Phone Lovely Vicente MD Primary Care Provider Encounter Details Date Type Department Care Team Description 11/29/2017 Office Visit Cardiology at [facility] Annette Maxwell Chronic systolic congestive heart failure; [facility] A, MIXER OPERATOR HOT METAL ASCVD (arteriosclerotic cardiovascular d isease); [facility] Cardiomyopathy, ischemic; [place], [place] PAD (peripheral artery disease) [address] CARDIOLOGY [phone] [place], [place] [address] Social History Tobacco Use Types [...] in this encounter Progress Notes Annette Maxwell, MIXER OPERATOR HOT METAL - 11/29/2017 9:20 AM EDT ID and [...] 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 [...] using left greater saphenous vein (done at [facility]), debridement of right foot with wound vac [...] right popliteal-pedal bypass at [facility] ? Plan: 1. A review of [...] Zulma Dolan MD [facility] [place], [place] [address] (Wo rk) 05/28/2022 Laboratory Appointment Lab 05/28/2022 Office Visit Cardiology Zulma Dolan MD [facility] [place] [address] Liz Poole PA [facility] [place] [address] 06/10/2022 Office Visit Dermatology Laura Scherer MD [facility] [address] [place], [place] [address] (Wo rk) documented as of this encounter Results Arterial Duplex Leg, Unil (11/29/2017 10:32 AM EDT) Component Value Ref Test Analysis Performed At [facility] Range Method Time Signature VB Text Department: Vascular Surgery Lab VASCUBASE Report Patient: [id number] (GREGORY HOANG) CPT: 56828 ICD10: I72.4;I73.9 Referring Physician: ANNETTE MAXWELL ?? [...] Glucose Lvl 217 (H) 65 - 199 [facility] mg/dL [facility] [...] or in patients with acute kidney failure. [email or web address] [email or web address]/DHnkdep http://Focus Media/DHMCnkf Specimen Anatomical Collection Method Collection Time Receive d Time (Source) Location / / Volume Laterality Blood specimen 11/29/2017 8:22 AM 05/07/2 018 8:29 (specimen) EDT AM EDT Resulting Agency Comment Spec In Lab Annette Maxwell MIXER OPERATOR HOT METAL CHEMISTRY ORDERABLES Performing Organization Address City/State/[place] [address] (ABNORMAL) pro-Brain Natriuretic Peptide (11/29/2017 8:22 AM EDT) P athologist Signature ProBNP 1,769 (H) <=125 [facility] pg/mL [facility] Specimen Anatomical Collection Method Collection Time Receive d Time (Source) Location / / Volume Laterality Blood specimen 11/29/2017 8:22 AM 018 8:29 (specimen) EDT AM EDT Resulting Agency Comment Spec In Lab Annette Maxwell MIXER OPERATOR HOT METAL CHEMISTRY ORDERABLES Performing Organization Address City/[facility]/[place] [address] documented in this encounter Visit Diagnoses Diagnosis Chronic systolic congestive heart failur e Chronic systolic heart failure ASCVD (arteriosclerotic cardiovascular d isease) Unspecified cardiovascular disease Cardiomyopathy, ischemic Other specified forms of chronic ischemi c heart disease PAD (peripheral artery disease) Peripheral vascular disease, unspecified documented in this encounter Care Teams Casino Worker Relationship Specialty Start Date End Date Lovely Vicente MD PCP - General 04/16/[address] [place] [address] documented as of this encounter
--- OUTSIDE RECORDS SUMMARY | 2022-04-27 08:14 | XMS_ITS | Encounter Summary ---
:1945 Author Organization [facility] [place] [address] Care Team Providers Name Role Phone Lovely Vicente MD Primary Care Provider Encounter Details Date Type Department Care Team Description 08/19/2017 Office Visit Vascular Surgery at [place], PAD (peripheral artery [facility]/ASSAY TECH disease) [facility] [address] [place], [place] VASCULAR SURGERY [address] [place] [address] [phone] Social History Tobacco Use Types Packs/Day Years [...] Zulma Dolan MD [facility] [place], [place] [address] (Wo rk) 05/28/2022 Laboratory Appointment Lab 05/28/2022 Office Visit Cardiology Zulma Dolan MD [facility] [place] [address] Liz Poole PA [facility] [place] [address] 06/10/2022 Office Visit Dermatology Laura Scherer MD [facility] [address] [place], [place] [address] (Wo rk) documented as of this encounter Visit Diagnoses Diagnosis PAD (peripheral artery disease) Peripheral vascular disease, unspecified documented in this encounter Care Teams Missile Inspector Preflight Relationship Specialty Start Date End Date Lovely Vicente MD PCP - General 04/16/[address] [place] [address] documented as of this encounter
--- OUTSIDE RECORDS SUMMARY | 2022-04-27 08:14 | XMS_ITS | Encounter Summary ---
:1945 Author Organization [facility] [place] [address] Care Team Providers Name Role Phone Lovely Vicente MD Primary Care Provider Encounter Details Date Type Department Care Team Description 11/29/2017 Laboratory Lab 3L Barbara Chronic systoli c congestive heart failure; Appointment [facility] ASCVD (ar teriosclerotic cardiovascular disease); Hospital Cardiomyopathy[place] [address] Social History Tobacco Use Types [...] MD [facility] [place], [place] [address] (Wo rk) 05/28/2022 Laboratory Appointment Lab 05/28/2022 Office Visit Cardiology Zulma Dolan MD [facility] [place] [address] Liz Poole PA [facility] [place] [address] 06/10/2022 Office Visit Dermatology Laura Scherer MD [facility] ER [address] [place], [place] [address] [...] - 12.5 [facility] LABORATORY INR 2.1 [place] [...] City/State/[place] [address] (ABNORMAL) Basic Metabolic Panel (non-fasting) (11/29/2017 8:22 AM EDT) P athologist Signature Glucose Lvl 217 (H) 65 - 199 [facility] mg/dL [facility] LABORATORY Comment: Diabetes: >=200 mg/dL plus symp toms BUN 26 (H) 10 - 20 mg/dL [facility] LABORATORY Creatinine 0.96 0.80 - 1.50 mg/dL [facility] LABORATORY Sodium 137 135 - [...] [facility] Estimated GFR >60 >=60 [facility] LABORATORY Comment: The reported eGFR should be multiplied b y 1.2 for patients. The MDRD is not an appropriate measure o f renal function for patients with body mass extremes or in patients with acute kidney failure. http://eSilicon.HipLogiq/DHnkdep http://Mark [employer]/DHMCnkf Specimen Anatomical Collection Method Collection Time Receive d Time (Source) Location / / Volume Laterality Blood specimen 11/29/2017 8:22 AM 018 8:29 (specimen) EDT AM EDT Resulting Agency Comment Spec In Lab Danette Maxwell APRN CHEMISTRY ORDERABLES Performing Organization Address City/State/[place] [address] (ABNORMAL) pro-Brain Natriuretic Peptide (11/29/2017 8:22 AM EDT) P athologist Signature ProBNP 1,769 (H) <=125 [facility] pg/mL [facility] LABORATORY Specimen Anatomical Collection Method Collection Time Receive d Time (Source) Location / / Volume Laterality Blood specimen 11/29/2017 8:22 AM 018 8:29 (specimen) EDT AM EDT Resulting Agency Comment Spec In Lab Danette Maxwell APRN CHEMISTRY ORDERABLES Performing Organization Address City/State/ZIP Code Phon e Number [address] Lavender Tube HOLD (11/29/2017 8:14 AM EDT) Patholo gist Method Time Signature Lavender Hold Sample in [facility] lab. [facility] LABORATORY Specimen Anatomical Collection Method Collection Time Receive d Time (Source) Location / / Volume Laterality Blood specimen No Charge / 11/29/2017 8:14 AM 018 8:29 (specimen) Unknown EDT AM EDT Lovely Vicente MD HEMATOLOGY ORDERABLES Performing Organization Address City/State/[place] [address] documented in this encounter Visit Diagnoses Diagnosis Chronic systolic congestive heart failur e Chronic systolic heart failure ASCVD (arteriosclerotic cardiovascular d isease) Unspecified cardiovascular disease Cardiomyopathy, ischemic Other specified forms of chronic ischemi c heart disease documented in this encounter Care Teams Armature Winder Helper Repair Relationship Specialty Start Date End Date Lovely Vicente MD PCP - General 04/16/[address] [place] [address] documented as of this encounter
--- OUTSIDE RECORDS SUMMARY | 2022-04-27 08:14 | XMS_ITS | Encounter Summary ---
:1945 Author Organization [facility] [place] [address] Care Team Providers Name Role Phone Lovely Vicente MD Primary Care Provider Encounter Details Date Type Department Care Team Description 08/26/2017 Hospital Encounter Vascular Lab at [facility], Athero embolism of foot, right; [place], [place] Delayed surgi nusrat wound healing, [place] [phone] Social History Tobacco Use Types Packs/Day Years [...] Dolan MD [facility] [place], [place] [address] (Wo rk) 05/28/2022 Laboratory Appointment Lab 05/28/2022 Office Visit Cardiology Zulma Dolan [facility] [place] [address] Liz Poole PA [facility] [place] Cardiology [place] [address] 06/10/2022 Office Visit Dermatology Laura Scherer MD [facility] DR [address] [place], [place] [address] (Wo rk) documented as [...] Component Value Ref Test Analysis Performed At [facility] Range Method Time Signature VB Text Department: Vascular Surgery Lab VASCUBASE Report Patient: [id number] (DON HOANG) CPT: 04673 ICD10: T81.89XA;I75.021 Referring Physician: ELVER BLOOM ?? [...] encounter documented in this encounter Care Teams Signals Officer Relationship Specialty Start Date End Date Lovely Vicente MD PCP - General 04/16/[address] [place] [address] documented as of this encounter
--- OUTSIDE RECORDS SUMMARY | 2022-04-27 08:14 | XMS_ITS | Encounter Summary ---
:1945 Author Organization [facility] [place] [address] Care Team Providers Name Role Phone Lovely Vicente MD Primary Care Provider Reason for Visit Reason Comments Follow-up I'm having trouble with the VAC Encounter Details Date Type Department Care Team Description 08/26/2017 Office Visit Vascular Surgery at [facility], STEPHANIE Mercado Atheroembolism of foot, right; [facility] [address] Delayed surgical wound healing, initial encounter; [facility] VASCULAR SURG YEHUDA Acute on chronic systolic congestive hea rt failure ; [place], [place] [address] [phone] Social History Tobacco Use Types Packs/Day Years [...] home and into the care of the [facility]. However, since discharge from [facility] he has had some difficulty with continuation [...] [facility] MAIN OR ??? PRO AMPUTATION FOOT, TRANSMETATARSAL Right 08/09/2017 AMPUTATION, TRANSMETATARSAL (WRVU 12.71) performed by Yonathan Smith MD at [facility] MAIN OR [...] at [facility] ENDOSCOPY ??? PRO DRESSING CHANGE UNDER ANESTHESIA Right 08/11/2017 (MSURG) DRESSING CHANGE (FOR OTHER THAN IVAN) UNDER ANES. (WRVU 0.86) performed by Lamar Smith MD at [facility] MAIN OR ??? PRO ENDOSCOPY W/VIDEO-ASST VEIN HARVEST, CABG Right 07/07/2017 ENDOSCOPIC HARVEST VEIN(S) FOR CABG (WRVU 0.31) performed by Yuan Retana MD at [facility] MAIN OR ??? PRO THYROIDECTOMY 03/28/2013 THYROIDECTOMY, TOTAL OR COMPLETE performed by Manny Mcknight MD at [facility] MAIN OR Social Hx: Social [...] Cardiology Zulma Dolan MD [facility] [place], [place] [address] (Wo rk) 05/28/2022 Laboratory Appointment Lab 05/28/2022 Office Visit Cardiology Zulma Dolan MD [facility] [place] [address] Liz Poole PA [facility] [place] [address] 06/10/2022 Office Visit Dermatology Laura Scherer MD [facility] [address] [place], [place] [address] [...] Department: Vascular Surgery Lab VASCUBASE Report Patient: [id number] (GREGORY FATIMA) CPT: 57815 ICD10: T81.89XA;I75.021 Referring Physician: ARIK CLEMENT ?? [...] Signature Glucose Lvl 98 65 - 199 [facility] mg/dL [facility] LABORATORY Comment: [...] LABORATORY Calcium 9.1 8.5 - 10.5 mg/dL [facility] LABORATORY Estimated GFR >60 >=60 [facility] LABORATORY Comment: The reported eGFR should be multiplied b y 1.2 for patients. The MDRD is not an appropriate measure o f renal function for patients with body mass extremes or in patients with acute kidney failure. http://LucidLogix Technologies/DHnkdep http://LucidLogix Technologies/DHMCnkf Specimen Anatomical Collection Method Collection Time Receive d Time (Source) Location / / Volume Laterality Blood specimen 08/26/2017 2:00 PM 018 2:15 (specimen) EST PM EST Resulting Agency Comment Spec In Lab Danette Maxwell BASIC ACOUSTIC ANALYST CHEMISTRY ORDERABLES Performing Organization Address City/[facility] [address]/ZIP Code Phon e Number [address] (ABNORMAL) pro-Brain Natriuretic Peptide (08/26/2017 2:00 PM EST) P athologist Signature ProBNP 2,373 (H) <=125 [facility] pg/mL [facility] LABORATORY Specimen Anatomical Collection Method Collection Time Receive d Time (Source) Location / / Volume Laterality Blood specimen 08/26/2017 2:00 PM 018 2:15 (specimen) EST PM EST Resulting Agency Comment Spec In Lab Danette A Homer STACIE CHEMISTRY ORDERABLES Performing Organization Address City/[facility] [address]/[facility] [place] [address] documented in this encounter Visit Diagnoses Diagnosis Atheroembolism of foot, right Delayed surgical wound healing, initial encounter Acute on chronic systolic congestive hea rt failure Acute on chronic systolic heart failure Ischemic cardiomyopathy Other specified forms of chronic ischemi c heart disease documented in this encounter Care Teams Fact Checker Relationship Specialty Start Date End Date Lovely Vicente MD PCP - General 04/16/[address] [place] [address] documented as of this encounter
--- OUTSIDE RECORDS SUMMARY | 2022-04-27 08:14 | XMS_ITS | Encounter Summary ---
:1945 Author Organization [facility] [place] [address] Care Team Providers Name Role Phone Lovely Vicente MD Primary Care Provider Encounter Details Date Type Department Care Team Description 09/03/2017 Telephone Vascular Surgery at [facility] Ninfa Clark, [place] [address] Social History Tobacco Use Types Packs/Day [...] help with the discomfort of the change. Deputy Sheriff Civil [employer] told the [facility] that I would ask [...] Appointment Cardiology Zulma Dolan MD [facility] [place], [place] [address] (Wo rk) 05/28/2022 Laboratory Appointment Lab 05/28/2022 Office Visit Cardiology Zulma Dolan MD [place] [address] Liz Poole PA [facility] [place] [address] 06/10/2022 Office Visit Dermatology Laura cSherer MD [facility] DR [address] [place], [place] [address] (Wo rk) documented as of this encounter Visit Diagnoses Not on filedocumented in this encounter Care Teams Paper Stacker Relationship Specialty Start Date End Date Lovely Vicente MD PCP - General 04/16/[address] [place] [address] [address] [facility] [address] [place] [address] documented as of this encounter
--- OUTSIDE RECORDS SUMMARY | 2022-04-27 08:14 | XMS_ITS | Encounter Summary ---
:1945 Author Organization [facility] [place] [address] Care Team Providers Name Role Phone Lovely Vicente MD Primary Care Provider Reason for Visit Reason Comments Follow-up Skin Check Encounter Details Date Type Department Care Team Description 01/06/2018 Office Visit Dermatology at [facility]; Abdelrahman [place] MD History of melanoma; [address] [facility] [place] [address] [facility] [place], [place] [address] Social History Tobacco Use Types [...] [facility] [place], [place] [address] (Wo rk) 05/28/2022 Laboratory Appointment Lab 05/28/2022 Office Visit Cardiology Zulma Dolan MD [facility] [place] [address] Liz Poole PA [facility] [place] [address] 06/10/2022 Office Visit Dermatology Laura Scherer MD [facility] [address] [place], [place] [address] (Wo rk) documented as of this encounter Visit Diagnoses Diagnosis Multiple nevi Benign neoplasm of skin, site unspecifie d History of melanoma Personal history of malignant melanoma o f skin Seborrheic keratosis Other seborrheic keratosis documented in this encounter Care Teams Staple Cutter Relationship Specialty Start Date End Date Lovely Vicente MD PCP - General 04/16/[address] [place] [address] documented as of this encounter
--- OUTSIDE RECORDS SUMMARY | 2022-04-27 08:14 | XMS_ITS | Encounter Summary ---
:1945 Author Organization [place] [address] Care Team Providers Name Role Phone Lovely Vicente MD Primary Care Provider Reason for Visit Reason Comments Follow-up Encounter Details Date Type Department Care Team Description 08/19/2017 Office Visit Cardiac Surgery at [facility], Jock S/P C ABG (coronary [facility] N, artery bypass graft) [facility] [place] CARDIOTHORACIC [address] SURGERY [phone] [place], [place] [address] Social History Tobacco Use [...] office. Best personal regards, Yuan Retana MD [phone] documented in this encounter Plan of Treatment Upcoming Encounters Date Type Specialty Care Team Description 05/28/2022 Appointment Cardiology Zulma Dolan MD [facility] er Dr [place] [address] (Wo rk) 05/28/2022 Laboratory Appointment Lab 05/28/2022 Office Visit Cardiology Zulma Dolan MD [facility] [place] [address] Liz Poole PA [facility] [place] [address] 06/10/2022 Office Visit Dermatology Laura Scherer MD [facility] ER DR [address] [place] [address] (Wo rk) documented as of this encounter [...] 454 ms MUSE SYSTEM (Bezet) Calculated P [place] 20 degrees MUSE SYSTEM Calculated R [place] -29 degrees MUSE SYSTEM Calculated T [place] 121 degrees MUSE SYSTEM INTERPRETATION Normal sinus rhythm MUSE SYSTEM Inferior infarct (cited on or before 25-JAN-2013) Anterior 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) T wave abnormality, consider lateral ischemia Abnormal ECG When compared with ECG of 06-AUG-2017 12:37, No signif icant change was found Confirmed by MD Luci, Taurus Braun ([id number]) on 08/19/2017 1 0:37:38 PM Specimen Anatomical [...] status documented in this encounter Care Teams Athletic Turf Worker Relationship Specialty Start Date End Date Lovely Vicente MD PCP - General 04/16/[address] [place] [address] documented as of this encounter
--- OUTSIDE RECORDS SUMMARY | 2022-04-27 08:14 | XMS_ITS | Encounter Summary ---
:1945 Author Organization [facility] [place] [address] Care Team Providers Name Role Phone Lovely Vicente MD Primary Care Provider Reason for Visit Reason Onset Date Comments VNA Calls 08/30/2017 Encounter Details Date Type Department Care Team Description 08/30/2017 Telephone Vascular Surgery at [facility] Cora Reid RN [facility] Calls [facility] [place] [address] Social History Tobacco Use Types Packs/Day [...] EST Caller: Alfonso at [facility] [phone] Reason for call: Changing his wound vac [...] Alfonso who had been in contact with [facility]'s Wound Care Nurse who advised him to [...] Zulma Dolan MD [facility] [address] [place], [place] [address] (Wo rk) 05/28/2022 Laboratory Appointment Lab 05/28/2022 Office Visit Cardiology Zulma Dolan MD [facility] [place] [address] Liz Poole PA [facility] [place] [address] 06/10/2022 Office Visit Dermatology Laura Scherer MD [facility] [address] [place], [place] [address] (Wo rk) documented as of this encounter Visit Diagnoses Not on filedocumented in this encounter Care Teams Timing Inspector Relationship Specialty Start Date End Date Lovely Vicente MD PCP - General 04/16/[address] [place] [address] documented as of this encounter
--- OUTSIDE RECORDS SUMMARY | 2022-04-27 08:14 | XMS_ITS | Encounter Summary ---
:1945 Author Organization [facility] [place] [address] Care Team Providers Name Role Phone Lovely Vicente MD Primary Care Provider Encounter Details Date Type Department Care Team Description 09/07/2017 Laboratory Appointment Lab 3L [facility] [place] [phone] Social History Tobacco Use Types Packs/Day Years [...] Dolan MD [facility] er [place], [place] [address] (Wo rk) 05/28/2022 Laboratory Appointment Lab 05/28/2022 Office Visit Cardiology Zulma Dolan MD [facility] [place] [address] Liz Poole PA [facility] [address] 06/10/2022 Office Visit Dermatology Laura Scherer MD [facility] ER DR [address] [place], [place] [address] (Wo rk) documented as of this encounter [...] Signature Thyroglobulin 1.4 <=54.9 [facility] ng/mL [facility] LABORATORY Comment: Thyroglobulin levels may be [...] Address City/State/[place] [address] TSH (09/07/2017 2:41 PM EST) athologist Signature TSH 3.93 0.27 - 4.20 [facility] LAB[facility]ORY Specimen Anatomical Collection Method Collection Time Receive d Time (Source) Location / / Volume Laterality Blood specimen 09/07/2017 2:41 PM 018 2:46 (specimen) EST PM EST Resulting Agency Comment Spec In Lab Luz Prescott MD CHEMISTRY ORDERABLES Performing Organization Address City/State/[place] [address] documented in this encounter Visit Diagnoses Diagnosis Hx of papillary thyroid carcinoma Personal history of malignant neoplasm o f thyroid documented in this encounter Care Teams Medical Oncologist Relationship Specialty Start Date End Date Lovely Vicente MD PCP - General 04/16/[address] [place] [address] documented as of this encounter
--- OUTSIDE RECORDS SUMMARY | 2022-04-27 08:14 | XMS_ITS | Encounter Summary ---
:1945 Author Organization [facility] [place] [address] Care Team Providers Name Role Phone Lovely Vicente MD Primary Care Provider Encounter Details Date Type Department Care Team Description 10/05/2017 Unscheduled Cardiology at [facility] RONNIE Sin PATIENT NOT SEEN Encounter [facility] Tamiko Martinez MD [facility] [address] CARDIOLOGY DEPT [phone] [place] [address] Social History Tobacco Use Types Packs/Day Years [...] Dolan MD [facility] [place], [place] [address] (Wo rk) 05/28/2022 Laboratory Appointment Lab 05/28/2022 Office Visit Cardiology Zulma Dolan MD [facility] [place] [address] Liz Poole PA [facility] [place] [address] 06/10/2022 Office Visit Dermatology Laura Scherer MD [facility] DR [address] [place], [place] [address] (Wo rk) documented as of this encounter Visit Diagnoses Diagnosis DH PATIENT NOT SEEN documented in this encounter Care Teams Manager Music Relationship Specialty Start Date End Date Lovely Vicente MD PCP - General 04/16/[address] [place] [address] documented as of this encounter
--- OUTSIDE RECORDS SUMMARY | 2022-04-27 08:15 | XMS_ITS | Encounter Summary ---
:1945 [place] [address] Care Team Providers Name Role Phone Lovely Vicente MD Primary Care Provider Reason for Visit Auth/Cert Specialty Diagnoses / Procedures Referred By Contact Refer red To Contact Diagnoses Critical lower limb ischemia CELLULITIS RT FOOT Procedures EMERGENCY Referral ID Status Reason Start Date Expiration Date Visits Requ ested Visits Authorized [id number] 1 1 Encounter Details Date Type Department Care Team Description 08/06/2017 - Hospital Encounter 5 Yonathan Oneill lower limb ischemia; 08/16/2017 Su Flores MD Ischemic foot Hospital [facility] [address]iqu[address] [place] [phone] Social History Tobacco Use Types Packs/Day Years [...] 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 Patient [...] Dorsalis Pedis (Ankle) Artery ?132 ? 0.94 ??Irwin-Biphasic ? Posterior Tibial (Ankle) Artery ??154 ? 1.10 ??Irwin-Biphasic ? Fourth Toe ? 67 ?0.48 ?? [...] foot. Discharge Conditions/Prognosis: Good Discharge to: [facility] Rehab Discharge Medications: Your Medications New [...] For any problems or questions please call [phone] ZELDA Smith, tip stitcher Nurse Clinician For issues on weeknights after 5pm and weekends please call [phone] and ask for the Vascular Fellow ship construction teacher. General Instructions None Future Appointments and Orders Future Appointments Provider Department Dept Phone 08/26/2017 4:00 PM Aurelia Rivera PA Vascular Surgery [facility] [place] [phone] 09/07/2017 3:00 PM LAB, THREE L Lab 3L [facility] [phone] 09/07/2017 4:00 PM Luz Prescott MD Endocrinology at [place] [phone] 09/09/2017 8:00 AM Barbra Soares APRN Pain Management [facility] [place] [phone] Please bring a list of your current [...] For any problems or questions please call [phone] ZELDA Smith, tip stitcher Nurse Clinician For issues on weeknights after 5pm and weekends please call [phone] and ask for the Vascular Fellow ship construction teacher. documented in this encounter Medications at [...] Note Patient Destination: [facility] ([facility]) [address] [place] [address] Transportation: with (at bedside) Time of Discharge: by 12 noon Level of Care: swing Patient Aware: yes Family Notified: yes Md to call report to: Yissel Quintero SENIOR COMPLIANCE OFFICER already called RN to call report to: [phone] Shirin Wolf Office of Care Management Pager [phone] Shirin Wolf RN - 08/16/2017 10:50 AM EST [facility] has offered pt swing bed. Pt and accept bed. will transport via car. SENIOR COMPLIANCE OFFICER Yissel Quintero aware; d/c paperwork will be completed by 12 noon. [facility] requests pt arrival by 1400 today; SENIOR COMPLIANCE OFFICER, RN, and family aware. SENIOR COMPLIANCE OFFICER called [facility] and was told that they prefer pt to arrive with wound vac dressing applied but clamped. SENIOR COMPLIANCE OFFICER applied new wound vac dressing. RN has [facility] number to call report. PASSR completed; SENIOR COMPLIANCE OFFICER paged to request provider signature in highlighted space. Indigo from [facility] notified via email that home wound vac now cancelled; [facility] has picked up from room and order cancelled. Packet started and provided to unit operator. Medicare important message explained to patient, patient signed. Copy provided to patient and signature page to OCM for inclusion in pt EMR. Radha Georges - 08/16/2017 10:34 AM EST Office of Care Management/Turkey Cleaner Patient Name: Gregory Hoang : 1945 Patient has been offered a swing bed at [facility]. The patient will be transported by private transportation. No MD to MD report necessary Please call Nursing Report to [phone], ask for consumer loan underwriter. Info to accompany patient: Narcotic Prescriptions Copies of Medication Administration Records and IV sheets for past 10 days. Plan: Turkey Cleaner will be available to the patient and Retort Pre Cooker-RN and/or Jazz Musician for further assistance. Patient will be discharged to: [place] [phone] Radha Powers, Turkey Cleaner Mira Black, VAMSI - 08/15/2017 10:05 PM EST [address] Flores to ask if he wanted to hold metoprolol dose. BP 95/58. OK to hold this dose Courtney Brito - 08/15/2017 3:26 PM EST Office of Care Management(OCM)/Turkey Cleaner(RS)/ D/C Planning re : Patient is medically ready for d/c today. RS has been in contact with [facility] to see if they could offer a bed. [facility] is still reviewing the case and need their MD to review chart prior to accepting or declining. OCM team needs to check in with [facility] tomorrow to check on status. 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 Vac in place. [...] patient's referral to: [facility] PHONE: [phone] FAX: [phone] CM spoke with RS who said that [...] rehab. Await recommendations from PT. Covering pager #[phone]. 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 Bench Carpenter Kaitlin Saha, RN Pager #[phone] Payam Rosales - 08/13/2017 2:37 PM EST Senior Net Architect Encounter Note Patient Name: Gregory Hoang : [id number] MR#: [id number] Admit Date: 08/06/2017 1:41 PM Hospital Day 7 days Narrative: Visited to introduce and assess acceptance of Senior Net Architect services. Pt was awake, alert, oriented and in chair and family was there. Assessment:Patient coping positively with stresses of illness/hospitalization at this time. Pt says that he is hoping to get better and his family was there. Pt says that he has family care and supportand taking one day at time. Intervention and Outcome: Provided emotional support and encouraging presence. 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 A letter describing our affiliations was reviewed with them and theywere educated about their right to choose where referrals are placed. Patient requests referral to [facility] [employer]. PHONE: [phone] FAX: [phone]. And Home NPWT (Negative Pressure Wound Therapy) aka wound vac device made available to pt. Serial # confirmed. Reviewed [facility] Proof of Delivery/Assignment of Benefits Statement(POD/AOB) Form w patient or authorized agent signing on behalf of patient. Copy of POD/AOB provided to pt and other copy faxed to [employer] @ fax# [phone] Expected date of discharge: 08/12/2017. 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 Address: [address] [place] [address] [place] [address] (home) Mobile: Telephone Information: Referring Provider: No [...] MD at [facility] ??? PRO ENDOSCOPY W/VIDEO-ASST VEIN HARVEST, CABG Right 07/07/2017 ENDOSCOPIC HARVEST VEIN(S) FOR CABG (WRVU 0.31) performed by Yuan Retana MD at [facility] ??? 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 Heparin gtt continues to run. Pt [...] : 1945 AGE 72 y.o. Address: [address] [place] [address] [place] [address] (home) Mobile: Telephone Information: Referring Provider: No [...] MD at [facility] ??? PRO ENDOSCOPY W/VIDEO-ASST VEIN HARVEST, CABG Right 07/07/2017 ENDOSCOPIC HARVEST VEIN(S) FOR CABG (WRVU 0.31) performed by Yuan Retana MD at [facility] ??? PRO THYROIDECTOMY 03/28/2013 THYROIDECTOMY, TOTAL OR COMPLETE performed by Manny Mcknight MD at [facility] Date/Procedure Meds given/comments No [...] 2 times daily (with meals). 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 Vascular resident ship construction teacher and will forward result to the team prior to rounds. Melba Cruz RN - 08/08/2017 4:06 AM EST Fall Event Note Gregory Hoang [id number] 08/08/2017 Time of Fall: 0400 Was the [...] Starkey MD - 08/07/2017 4:32 PM EST 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 Patient [...] MD at [facility] ??? PRO ENDOSCOPY W/VIDEO-ASST VEIN HARVEST, CABG Right 07/07/2017 ENDOSCOPIC HARVEST VEIN(S) FOR CABG (WRVU 0.31) performed by Yuan Retana MD at [facility] ??? 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 [...] 5. Completion RLE angiogram 6. L MANAGER OF TRAINING angiogram 7. 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 - L MANAGER OF TRAINING angriogram demonstrated: High femoral bifurcation over the proximal half of the femoral head. L MANAGER OF TRAINING access in the distal L MANAGER OF TRAINING. - Closure device: Mynx Technical Procedure: The [...] for a 45cm 5F Destination. V18 and [place] and QuickCross catheters were used to select [...] A stationed picture of the L MANAGER OF TRAINING was performed as the patient was noted to have a very high bifurcation. Access appeared in the distal R MANAGER OF TRAINING. Closure and sheath removal was performed with [...] PM EST 1440 report called to 5 [place] nurse Tessa AGUSTIN documented in this encounter [...] pt and pt's spouse. Discharge to [facility]. Goal: Individualization & Mutuality Outcome: Outcome [...] sit/sit to supine -- Bed Mobility Goal, Iberia Level independent -- Bed Mobility Goal, Date [...] days -- Transfer Training Goal, Activity Type jck-nd-xyedu/ufpez-td-jng -- Transfer Train Goal, Iberia Level conditional independence -- Transfer Train Goal, [...] call cabello within reach, Hourly rounding by RN/MOLDED CANDLES WICKER. Bed alarm / Chair alarm. Patient-specific fall [...] Smith MD - 08/15/2017 6:28 PM EST [facility] Operative Note Patient Name: Gregory Hoang : [id number] MR#: [id number] Case Date: 08/09/2017 Surgeon: Surgeon(s) and Role: [...] 5. Completion RLE angiogram 6. L MANAGER OF TRAINING angiogram 7. Mynx closure Precautions/Restrictions: fall, sternal [...] other (see comments) (or swing bed) Pager: [phone] BASSAM ELIAS, PT 08/14/2017 Inpatient Physical Therapy [...] to Achieve by discharge Gait Training Goal, Iberia Level conditional independence;set up required Gait Training [...] facilities over the weekend except for [facility]. CM spoke with [facility] CM Drea Sandhu, VAMSI who said that they do not anticipate any beds over the weekend. Reviewed with patient/ that they need to be aware that patient will need to take the first bed offered at the facilities that they make referrals to. Their choices are: 1- [facility] PHONE: [phone] FAX: [phone] 2- [facility] ([facility]) [address] [place] [address] 3- [facility])([facility]) [address] [place] [address] I have discussed Medicare/Private Insurance [...] RS/CM on Wednesday to follow-up. Covering pager #[phone] for today. Plan of Care - Henrique [...] additional findings of pseudoaneurysm on R MANAGER OF TRAINING and bilateral anterior tibial artery occlusions. Was [...] an outpatient once discharged. Have patient call [phone] to set up an appointment. Follow-up: Dermatology will sign-off for now. Please do not hesitate to contact us if you have any questions orconcerns. Impression and Recommendations discussed with primary team on 08/13/2017. Karo Henderson MD Resident in Dermatology Section of Dermatology, Department of Surgery [facility] Pager [phone] Patient seen and evaluated with staff Therapy Director: Halima Cordero MD Section of Dermatology [facility] [...] 5. Completion RLE angiogram 6. L MANAGER OF TRAINING angiogram 7. Mynx closure Active Non-Hospital Problems [...] home with home health ([facility] PT[facility]OT) Pager: [phone] YASIR TELLO OT 08/12/2017 Occupational Therapy Rehabilitation [...] 5. Completion RLE angiogram 6. L MANAGER OF TRAINING angiogram 7. Mynx closure Past Medical History: [...] with 24/7 assistance and maximal services) Pager: [phone] NICHOLAS MORA, PT 08/12/2017 Physical Therapy Rehabilitation [...] sit/sit to supine -- Bed Mobility Goal, Iberia Level independent -- Bed Mobility Goal, Outcome Achieved -- goal ongoing Goal: Gait Training Goal Stand Alone Therapy Goal Outcome: Ongoing (Interventions Implemented as Appropriate) 08/11/17 1310 08/12/17 1510 Gait Training Goal Gait Training Goal, Date Established 08/11/17 -- Gait Training Goal, Time to Achieve 5 - 7 days -- Gait Training Goal, Iberia Level conditional independence -- Gait Training Goal, [...] days -- Transfer Training Goal, Activity Type dsw-ps-junwd/ryyjk-vv-mcl -- Transfer Train Goal, Iberia Level conditional independence -- Transfer Training Goal, [...] Smith MD - 08/11/2017 2:52 PM EST [facility] Operative Note Patient Name: Gregory Hoang : [id number] MR#: [id number] Case Date: 08/11/2017 Surgeon: Surgeon(s) and Role: [...] 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 Completion RLE angiogram 6. L MANAGER OF TRAINING angiogram 7. Mynx closure He is very [...] Anticipated Discharge Disposition: inpatient rehabilitation facility Pager: [phone] LAWRENCE GONZALEZ, PT 08/11/2017 Physical Therapy Rehabilitation [...] to sit/sit to supine Bed Mobility Goal, Iberia Level independent Goal: Gait Training Goal Stand Alone Therapy Goal Outcome: Ongoing (Interventions Implemented as Appropriate) 08/11/17 1310 Gait Training Goal Gait Training Goal, Date Established 08/11/17 Gait Training Goal, Time to Achieve 5 - 7 days Gait Training Goal, Iberia Level conditional independence Gait Training Goal, Assist [...] 7 days Transfer Training Goal, Activity Type afj-pk-fdngb/jnaxi-fy-juw Transfer Train Goal, Iberia Level conditional independence Plan of [facility] Annetta Sandoval RN - 08/11/2017 7:21 [...] call cabello within reach, Hourly rounding by RN/MOLDED CANDLES WICKER. Bed alarm / Chair alarm. ? Patient-specific [...] 04/05/2013 Hospitalizations Within the Past 30 Days: [facility] 07/20/2017 Anticipated Length Of Stay (If known): Expected Length of Hospitalization: 5-7 days2-3 days Current Decision-Making Capacity: Alert and oriented x 4 Advance Care Planning: on file Kisha Hoang [facility] [phone] Current Coping/Education/Information Needs: pt and spouse state [...] Health/Prescription Coverage: Primary Insurance: MEDICARE Secondary Insurance: [employer] [facility] Prescription Coverage: See above Preferred Pharmacy: [email or web address] Other: N/A Primary Care Provider: Lovely Vicente MD [phone] Patient/Caregiver Goals of Treatment: Patient plans to [...] of care planning. Kaitlin Saha RN Pager: [phone] Plan of Care - Melba Jaramillo RN [...] call cabello within reach, Hourly rounding by RN/MOLDED CANDLES WICKER. Bed alarm / Chair alarm. Patient-specific fall [...] at bedside and MD TEAM Carrying pager [phone] contacted (via Radio page) and notified of [...] Cardiology Zulma Dolan MD [facility] [place], [place] [address] (Wo rk) 05/28/2022 Laboratory Appointment Lab 05/28/2022 Office Visit Cardiology Zulma Dolan MD [facility] [place] [address] Liz Poole PA [facility] [place] [address] 06/10/2022 Office Visit Dermatology Laura Scherer MD [facility] [address] [facility] [place], [place] [address] (Wo rk) documented as [...] Signature POC Glucose 160 65 - 199 [facility] mg/dL [facility] Comment: Supplemental ranges: <140 mg/dL before meals <180 mg/dL all other times of the day Specimen Anatomical Collection Method Collection Time Receive d Time (Source) Location / / Volume Laterality Blood specimen 08/16/2017 7:28 AM 018 7:28 (specimen) EST AM EST Yonathan Smith MD POINT OF CARE TEST ORDERABLE S Performing Organization Address City/State/[place] [address] (ABNORMAL) Differential, Automated (08/16/2017 5:08 AM EST) [facility] Method Time Signature Neutrophils % 73.9 % [facility] Neutr Abs (ANC) 5.37 1.70 - [facility] 6.10 [facility] x10(3)/[facility] LABORATORY Lymphocytes % 10.1 % [facility] Lymphocytes Abs 0.7 (L) 0.9 - 3.2 [facility] x10(3)/[facility] LABORATORY Monocytes % 10.1 % [facility] Monocyte Abs 0.7 0.3 - 0.9 [facility] x10(3)/[facility] LABORATORY Eosinophils % 5.1 % [facility] Eosinophils Abs 0.4 0.0 - 0.4 [facility] x10(3)/[facility] LABORATORY Basophils % 0.4 % [facility] Basophils Abs 0.0 0.0 - 0.1 [facility] x10(3)/[facility] LABORATORY Immature Gran % 0.40 % [facility] Comment: Immature granulocytes(IG's)percentage an d absolute count will include metamyelocytes, myelocytes, and promyelo cytes. Blood smears from CBCs yielding IG's will be scanned manually for concor dance. If this scan disagrees with the automated IG or if promyelocytes are not ed, a manual differential will be performed. Melisa Gran Abs 0.03 0.00 - 0.04 x10(3)/[facility] Y [facility] LABORATORY Specimen Anatomical Collection Method Collection Time Receive d Time (Source) Location / / Volume Laterality Blood specimen 08/16/2017 5:08 AM 018 5:20 (specimen) EST AM EST Resulting Agency Comment Spec In Lab Yonathan Smith MD HEMATOLOGY ORDERABLES Performing Organization Address City/State/[place] [address] (ABNORMAL) Hemogram (08/16/2017 5:08 AM EST) Analysis Performed At Patho logist Time Signature WBC 7.3 4.0 - 9.5 [facility] x10(3)/[facility] LABORATORY RBC 3.36 (L) 4.58 - [place] [facility] 5.54 [facility] x10(6)/[facility] LABORATORY Hemoglobin 9.7 (L) 13.7 - [facility] 16[facility] gm/dL [facility] Hematocrit 30.3 (L) 40.5 - [facility] 48.5 % [facility] MCV 90.2 82.9 - [facility] 93.1 [facility] LABORATORY MCH 28.9 27.5 - [place] [facility] 32.1 pg [facility] MCHC 32.0 32.0 - [place] [facility] 35.7 gm/dL [facility] Platelets 282 145 - 357 [facility] x10(3)/[facility] LABORATORY RDWSD 53.9 (H) 36.0 - [place] [facility] 45.0 [facility] LABORATORY RDWCV 16.5 (H) 11.4 - [facility] SU 13.8 % [facility] MPV 9.0 7.6 - 12.9 [facility] LABORATORY nRBC % Auto 0.0 % [facility] nRBC Abs Auto 0.000 0.000 - [facility] SU 0.000 [facility] x10(3)/[facility] LABORATORY Specimen Anatomical Collection Method Collection Time Receive d Time (Source) Location / / Volume Laterality Blood specimen 08/16/2017 5:08 AM 018 5:20 (specimen) EST AM EST Resulting Agency Comment Spec In Lab Yonathan Smith MD HEMATOLOGY ORDERABLES Performing Organization Address City/State/[place] [address] (ABNORMAL) Basic Metabolic Panel (non-fasting) (08/16/2017 5:08 AM EST) P athologist Signature Glucose Lvl 141 65 - 199 [facility] mg/dL [facility] Comment: Diabetes: [...] estions. Chloride 99 98 - 107 mmol/L [facility] [...] or in patients with acute kidney failure. http://[email or web address]/DHnkdep http://AdECN/DHMCnkf Specimen Anatomical Collection Method Collection Time Receive d Time (Source) Location / / Volume Laterality Blood specimen 08/16/2017 5:08 AM 018 5:20 (specimen) EST AM EST Resulting Agency Comment Spec In Lab Yonathan Smith MD CHEMISTRY ORDERABLES Performing Organization Address City/State/[place] [address] (ABNORMAL) Prothrombin Time (08/16/2017 [...] Address City/State/ZIP Code Phon e Number [address] POCT Glucose (08/16/2017 4:09 AM EST) athologist Signature POC Glucose 147 65 - 199 [facility] mg[facility]dL [facility] Comment: Supplemental ranges: <140 mg/dL before meals <180 mg/dL all other times of the day Specimen Anatomical Collection Method Collection Time Receive d Time (Source) Location / / Volume Laterality Blood specimen 08/16/2017 4:09 AM 018 4:09 (specimen) EST AM EST Yonathan Smith MD POINT OF CARE TEST ORDERABLE S Performing Organization Address City/State/[place] [address] POCT Glucose (08/15/2017 11:56 PM EST) athologist Signature POC Glucose 176 65 - 199 [facility] SU mg/dL [facility] Comment: Supplemental ranges: <140 mg/dL before meals <180 mg/dL all other times of the day Specimen Anatomical Collection Method Collection Time Receive d Time (Source) Location / / Volume Laterality Blood specimen 08/15/2017 11:56 8 (specimen) PM EST 11:56 PM EST Yonathan Smith MD POINT OF CARE TEST ORDERABLE S Performing Organization Address City/State/[place] [address] POCT Glucose (08/15/2017 8:05 PM EST) athologist Signature POC Glucose 136 65 - 199 [facility] [facility] mg/dL [facility] LABORATORY Comment: Supplemental ranges: <140 mg/dL before meals <180 mg/dL all other times of the day Specimen Anatomical Collection Method Collection Time Receive d Time (Source) Location / / Volume Laterality Blood specimen 08/15/2017 8:05 PM 018 8:05 (specimen) EST PM EST Yonathan Smith MD POINT OF CARE TEST ORDERABLE S Performing Organization Address City/State/[place] [address] (ABNORMAL) POCT Glucose (08/15/2017 4:50 PM EST) athologist Signature POC Glucose 232 (H) 65 - 199 [facility] mg/dL [facility]OR[facility] Comment: Supplemental ranges: <140 mg/dL before meals <180 mg/dL all other times of the day Specimen Anatomical Collection Method Collection Time Receive d Time (Source) Location / / Volume Laterality Blood specimen 08/15/2017 4:50 PM 018 4:50 (specimen) EST PM EST Yonathan Smith MD POINT OF CARE TEST ORDERABLE S Performing Organization Address City/State/[place] [address] POCT Glucose (08/15/2017 12:04 PM EST) athologist Signature POC Glucose 135 65 - 199 [facility] mg/dL [facility] LABORATORY Comment: Supplemental ranges: <140 mg/dL before meals <180 mg/dL all other times of the day Specimen Anatomical Collection Method Collection Time Receive d Time (Source) Location / / Volume Laterality Blood specimen 08/15/2017 12:04 8 (specimen) PM EST 12:04 PM EST Yonathan Smith MD POINT OF CARE TEST ORDERABLE S Performing Organization Address City/State/[place] [address] POCT Glucose (08/15/2017 7:36 AM EST) P athologist Signature POC Glucose 124 65 - 199 [facility] mg/dL [facility]OR[facility] Comment: Supplemental ranges: <140 mg/dL before meals <180 mg/dL all other times of the day Specimen Anatomical Collection Method Collection Time Receive d Time (Source) Location / / Volume Laterality Blood specimen 08/15/2017 7:36 AM 018 7:36 (specimen) EST AM EST Yonathan Smith MD POINT OF CARE TEST ORDERABLE S Performing Organization Address City/State/[place] [address] (ABNORMAL) Differential, Automated (08/15/2017 6:22 AM EST) Patholo gist Method Time Signature Neutrophils % 76.1 % [facility] LABORATORY Neutr Abs (ANC) 6.62 (H) 1.70 - [facility] 6.10 [facility] x10(3)/[facility] L LABORATORY Lymphocytes % 9.3 % [facility] LABORATORY Lymphocytes Abs 0.8 (L) 0.9 - 3.2 [facility] x10(3)/[facility] LABORATORY Monocytes % 9.4 % [facility] LABORATORY Monocyte Abs 0.8 0.3 - 0.9 [facility] x10(3)/[facility] LABORATORY Eosinophils % 4.0 % [facility]OR[facility]ORY Eosinophils Abs 0.4 0.0 - 0.4 [facility] x10(3)/[facility] LABORATORY Basophils % 0.6 % [facility] LABORATORY Basophils Abs 0.0 0.0 - 0.1 [facility] x10(3)/[facility] LABORATORY Immature Gran % 0.60 [...] Organization Address City/State/[place] [address] (ABNORMAL) Hemogram (08/15/2017 6:22 AM EST) Analysis Performed At Patho logist Time Signature WBC 8.7 4.0 - 9.5 [facility] x10(3)/[facility] LABORATORY RBC 3.21 (L) 4.58 - [facility] 5.54 [facility] x10(6)/[facility] LABORATORY Hemoglobin 9.1 (L) 13.7 - [facility] 16.5 gm/dL [facility] Hematocrit 29.0 (L) 40.5 - [facility] 48.5 % [facility] MCV 90.3 82.9 - [facility] 93.1 [facility] LABORATORY MCH 28.3 27.5 - [facility] 32.1 pg [facility] MCHC 31.4 (L) 32.0 - [facility] 35[facility] g[facility]/dL [facility] Platelets 254 145 - 357 [facility] x10(3)/[facility] LABORATORY RDWSD 53.9 (H) 36.0 - [facility] 45.0 [facility] LABORATORY RDWCV 16.3 (H) 11.4 - [facility] 13.8 % [facility] LABORATORY MPV 8.8 7.6 - 12.9 [facility] LABORATORY nRBC % Auto 0.0 % [facility] LABORATORY nRBC Abs Auto 0.000 0.000 - [facility] 0.000 [facility] x10(3)/[facility] LABORATORY Specimen Anatomical Collection Method Collection Time Receive d Time (Source) Location / / Volume Laterality Blood specimen 08/15/2017 6:22 AM 018 6:33 (specimen) EST AM EST Resulting Agency Comment Spec In Lab Yonathan Smith MD HEMATOLOGY ORDERABLES Performing Organization Address City/[facility]/[place] [address] (ABNORMAL) Basic Metabolic Panel (non-fasting) (08/15/2017 6:22 AM EST) athologist Signature Glucose Lvl 118 65 - 199 [facility] mg/dL [facility] Comment: Diabetes: [...] [facility] LAB[facility] Estimated GFR >60 >=60 [facility] LABORATORY Comment: The reported eGFR should be multiplied b y 1.2 for patients. The MDRD is not an appropriate measure o f renal function for patients with body mass extremes or in patients with acute kidney failure. http://[employer]/DHnkdep http://[employer]/DHMCnkf Specimen Anatomical Collection Method Collection Time Receive d Time (Source) Location / / Volume Laterality Blood specimen 08/15/2017 6:22 AM 018 6:33 (specimen) EST AM EST Resulting Agency Comment Spec In Lab Yonathan Smith MD CHEMISTRY ORDERABLES Performing Organization Address City/[facility]/[place] [address] (ABNORMAL) Prothrombin Time (08/15/2017 6:22 AM EST) athologist Signature PT 21.9 (H) 11.8 - 14.0 [facility] LABORATORY INR 1.9 (H) 0.9 - 1.1 [facility] LABORATORY [...] Organization Address City/State/[place] [address] POCT Glucose (08/15/2017 4:33 AM EST) athologist Signature POC Glucose 164 65 - 199 [facility] mg/dL [facility] Comment: Supplemental ranges: <140 mg/dL before meals <180 mg/dL all other times of the day Specimen Anatomical Collection Method Collection Time Receive d Time (Source) Location / / Volume Laterality Blood specimen 08/15/2017 4:33 AM 018 4:33 (specimen) EST AM EST Yonathan Smith MD POINT OF CARE TEST ORDERABLE S Performing Organization Address City/State/[place] [address] POCT Glucose (08/15/2017 12:12 AM EST) athologist Signature POC Glucose 89 65 - 199 [facility] mg/dL [facility] Comment: Supplemental ranges: <140 mg/dL before meals <180 mg/dL all other times of the day Specimen Anatomical Collection Method Collection Time Receive d Time (Source) Location / / Volume Laterality Blood specimen 08/15/2017 12:12 8 (specimen) AM EST 12:12 AM EST Yonathan Smith MD POINT OF CARE TEST ORDERABLE S Performing Organization Address City/State/[place] [address] (ABNORMAL) POCT Glucose (08/14/2017 8:07 PM EST) athologist Signature POC Glucose 204 (H) 65 - 199 [facility] mg/dL [facility] Comment: Supplemental ranges: <140 mg/dL before meals <180 mg/dL all other times of the day Specimen Anatomical Collection Method Collection Time Receive d Time (Source) Location / / Volume Laterality Blood specimen 08/14/2017 8:07 PM 018 8:07 (specimen) EST PM EST Yonathan Smith MD POINT OF CARE TEST ORDERABLE S Performing Organization Address City/State/[place] [address] POCT Glucose (08/14/2017 5:11 PM EST) athologist Signature POC Glucose 174 65 - 199 [facility] mg/dL [facility] Comment: Supplemental ranges: <140 mg/dL before meals <180 mg/dL all other times of the day Specimen Anatomical Collection Method Collection Time Receive d Time (Source) Location / / Volume Laterality Blood specimen 08/14/2017 5:11 PM 018 5:11 (specimen) EST PM EST Yonathan Smith MD POINT OF CARE TEST ORDERABLE S Performing Organization Address City/State/[place] [address] POCT Glucose (08/14/2017 12:10 PM EST) athologist Signature POC Glucose 141 65 - 199 [facility] mg/dL [facility] Comment: Supplemental ranges: <140 mg/dL before meals <180 mg/dL all other times of the day Specimen Anatomical Collection Method Collection Time Receive d Time (Source) Location / / Volume Laterality Blood specimen 08/14/2017 12:10 8 (specimen) PM EST 12:10 PM EST Yonathan Smith MD POINT OF CARE TEST ORDERABLE S Performing Organization Address City/State/ZIP Code Phon e Number [address] POCT Glucose (08/14/2017 8:07 AM EST) P athologist Signature POC Glucose 158 65 - 199 [facility] mg/dL [facility] Comment: Supplemental ranges: <140 mg/dL before meals <180 mg/dL all other times of the day Specimen Anatomical Collection Method Collection Time Receive d Time (Source) Location / / Volume Laterality Blood specimen 08/14/2017 8:07 AM 018 8:07 (specimen) EST AM EST Yonathan Smith MD POINT OF CARE TEST ORDERABLE S Performing Organization Address City/State/[place] [address] (ABNORMAL) Differential, Automated (08/14/2017 4:52 AM EST) Patholo gist Method Time Signature Neutrophils % 78.6 % [facility] LABORATORY Neutr Abs (ANC) 7.70 (H) 1.70 - [facility] 6.10 [facility] x10(3)/[facility] L LABORATORY Lymphocytes % 7.8 % [facility] LABORATORY Lymphocytes Abs 0.8 (L) 0.9 - 3.2 [facility] x10(3)/[facility] LABORATORY Monocytes % 8.8 % [facility] LABORATORY Monocyte Abs 0.9 0.3 - 0.9 [facility] x10(3)/[facility] LABORATORY Eosinophils % 4.0 % [facility] LABORATORY Eosinophils Abs 0.4 0.0 - 0.4 [facility] x10(3)/[facility] LABORATORY Basophils % 0.5 % [facility] LABORATORY Basophils Abs 0.0 0.0 - 0.1 [facility] x10(3)/[facility] LABORATORY Immature Gran % 0.30 % [facility] LABORATORY Specimen Anatomical Collection Method Collection Time Receive d Time (Source) Location / / Volume Laterality Blood specimen 08/14/2017 4:52 AM 018 5:08 (specimen) EST AM EST Resulting Agency Comment Spec In Lab Yonathan Smith MD HEMATOLOGY ORDERABLES Performing Organization Address City/State/[place] [address] (ABNORMAL) Hemogram (08/14/2017 4:52 AM EST) Analysis Performed At Patho logist Time Signature WBC 9.8 (H) 4.0 - 9.5 [facility] x10(3)/[facility] LABORATORY RBC 3.32 (L) 4.58 - [facility] 5.54 [facility] x10(6)/[facility] LABORATORY Hemoglobin 9.5 (L) 13.7 - [facility] gm/dL [facility] Hematocrit 30.3 (L) 40.5 - [facility] 48.5 % [facility]ORATORY MCV 91.3 82.9 - [facility] 93.1 [facility] LABORATORY MCH 28.6 27.5 - [facility] 32.1 pg [facility] LABORATORY MCHC 31.4 (L) 32.0 - [facility] 35.7 gm/dL [facility] Platelets 263 145 - 357 [facility] x10(3)/[facility] LABORATORY RDWSD 54.8 (H) 36.0 - [facility] 45.0 [facility] RDWCV 16.5 (H) 11.4 - [facility] 13.8 % [facility] LABORATORY MPV 9.1 7.6 - 12.9 [facility] LABORATORY nRBC % Auto 0.0 % [facility] LABORATORY nRBC Abs Auto 0.000 0.000 - [facility] 0.000 [facility] x10(3)/[facility] LABORATORY Specimen Anatomical Collection Method Collection Time Receive d Time (Source) Location / / Volume Laterality Blood specimen 08/14/2017 4:52 AM 018 5:08 (specimen) EST AM EST Resulting Agency Comment Spec In Lab Yonathan Smith MD HEMATOLOGY ORDERABLES Performing Organization Address City/[facility]/[place] [address] (ABNORMAL) Prothrombin Time (08/14/2017 [...] Organization Address City/State/[place] [address] (ABNORMAL) Basic Metabolic Panel (non-fasting) (08/14/2017 4:52 AM EST) athologist Signature Glucose Lvl 135 65 - 199 [facility] mg/dL [facility] Comment: Diabetes: [...] or in patients with acute kidney failure. http://[employer]/DHnkdep http://[employer]/DHMCnkf Specimen Anatomical Collection Method Collection Time Receive d Time (Source) Location / / Volume Laterality Blood specimen 08/14/2017 4:52 AM 018 5:08 (specimen) EST AM EST Resulting Agency Comment Spec In Lab Yonathan Smith MD CHEMISTRY ORDERABLES Performing Organization Address City/State/[place] [address] POCT Glucose (08/14/2017 3:56 AM EST) P athologist Signature POC Glucose 135 65 - 199 [facility] mg/dL [facility] Comment: Supplemental [...] Address City/State/ZIP Code [place] [address] POCT Glucose (08/13/2017 11:13 PM EST) athologist Signature POC Glucose 118 65 - 199 [place] mg/dL [facility] Comment: Supplemental ranges: [...] [facility]/ZIP Code [place] [address] (ABNORMAL) POCT Glucose (08/13/2017 8:08 PM EST) athologist Signature POC Glucose 204 (H) 65 - 199 [facility] mg/dL [facility] Comment: Supplemental ranges: [...] [facility]/ZIP Code [place] [address] POCT Glucose (08/13/2017 4:02 PM EST) athologist Signature POC Glucose 145 65 - 199 [place] [place] mg/dL [facility] Comment: Supplemental ranges: <140 mg/dL before meals <180 mg/dL all other times of the day Specimen Anatomical Collection Method Collection Time Receive d Time (Source) Location / / Volume Laterality Blood specimen 08/13/2017 4:02 PM 018 4:02 (specimen) EST PM EST Yonathan Smith MD POINT OF CARE TEST ORDERABLE S Performing Organization Address City/State/[place] [address] POCT Glucose (08/13/2017 11:31 AM EST) P athologist Signature POC Glucose 179 65 - 199 [facility] mg/dL [facility] Comment: Supplemental ranges: [...] [facility]/[place] [address] (ABNORMAL) POCT Glucose (08/13/2017 10:16 AM EST) athologist Signature POC Glucose 211 (H) 65 - 199 [facility] mg/dL [facility]ORY Comment: Supplemental ranges: [...] [facility]/ZIP Code Phon e Number [address] JULIAN, legs, multiple levels (08/13/2017 7:42 AM EST) Component Value Ref Test Analysis Performed At Patholo gist Range Method Time Signature VB Text Department: Vascular Surgery Lab VASCUBASE Report Patient: [id number] (GREGORY HOANG) CPT: 56147 ICD10: I99.8 Referring Physician: YONATHAN SMITH ?? Indications: s/p R 1,2,3 toe amps with red left foot, need n ew baseline Diabetes mellitus: yes ICD10 Diagnosis Code: I99.8 Findings: Right ?Pressure (mm Hg) ?? JULIAN ??Waveform ?TBI ?? Brachial Artery ?138 ? Dorsalis Pedis (Ankle) Arter y ?132 ? 0.94 ??Irwin- Biphasic ? Posterior Tibial (Ankle) Art anila ??154 ? 1.10 ??Irwin-Biphasic ? Fourth Toe ? 67 ? 0.48 [...] 156 65 - 199 [facility] mg/dL [facility] Comment: Supplemental ranges: <140 mg/dL before meals <180 mg/dL all other times of the day Specimen Anatomical Collection Method Collection Time Receive d Time (Source) Location / / Volume Laterality Blood specimen 08/13/2017 7:33 AM 018 7:33 (specimen) EST AM EST Yonathan Smith MD POINT OF CARE TEST ORDERABLE S Performing Organization Address City/State/[place] [address] (ABNORMAL) Differential, Automated (08/13/2017 5:33 AM EST) [facility] Method Time Signature Neutrophils % 77.8 % [facility] LABORATORY Neutr Abs (ANC) 7.83 (H) 1.70 - [facility] 6.10 [facility] x10(3)/[facility] L LABORATORY Lymphocytes % 8.4 % [facility] LABORATORY Lymphocytes Abs 0.8 (L) 0.9 - 3.2 [facility] x10(3)/[facility] LABORATORY Monocytes % 8.3 % [facility] LABORATORY Monocyte Abs 0.8 0.3 - 0.9 [facility] x10(3)/[facility] LABORATORY Eosinophils % 4.6 % [facility] LABORATORY Eosinophils Abs 0.5 (H) 0.0 - 0.4 [facility] x10(3)/[facility] LABORATORY Basophils % 0.5 % [facility] LABORATORY Basophils Abs 0.0 0.0 - 0.1 [facility] x10(3)/[facility] LABORATORY Immature Gran % 0.40 % [facility] [...] Address City/State/ZIP Code Phon e Number [address] (ABNORMAL) Hemogram (08/13/2017 5:33 AM EST) Analysis Performed At Patho logist Time Signature WBC 10.1 (H) 4.0 - 9.5 [facility] x10(3)/[facility] LABORATORY RBC 3.21 (L) 4.58 - [facility] 5.54 [facility] x10(6)/[facility] LABORATORY Hemoglobin 9.2 (L) 13.7 - [facility] 16.5 gm/dL [facility]ORATORY Hematocrit 29.6 (L) 40.5 - [facility] 48.5 % [facility] LABORATORY MCV 92.2 82.9 - [facility] 93.1 [facility] LABORATORY MCH 28.7 27.5 - [facility] 32.1 pg [facility] LABORATORY MCHC 31.1 (L) 32.0 - [facility]/dL [facility] Platelets 263 145 - 357 [facility] x10(3)/[facility] LABORATORY RDWSD 54.8 (H) 36.0 - [facility] 45.0 [facility] LABORATORY RDWCV 16.4 (H) 11.4 - [facility] 13.8 % [facility] LABORATORY MPV 9.2 7.6 - 12.9 [facility] LABORATORY nRBC % Auto 0.0 % [facility] LABORATORY nRBC Abs Auto 0.000 0.000 - [facility] 0.000 [facility] x10(3)/[facility] LABORATORY Specimen Anatomical Collection Method Collection Time Receive d Time (Source) Location / / Volume Laterality Blood specimen 08/13/2017 5:33 AM 018 6:04 (specimen) EST AM EST Resulting Agency Comment Spec In Lab Yonathan Smith MD HEMATOLOGY ORDERABLES Performing Organization Address City/State/[place] [address] (ABNORMAL) Prothrombin Time (08/13/2017 5:33 AM EST) P athologist Signature PT 17.3 (H) 11.8 - 14.0 [facility] LABORATORY INR 1.4 (H) 0.9 - 1.1 [facility] LABORATORY [...] City/State/ZIP Code Phon e Number [place] [id number]OS[address] LAB[address]ORY Drive (ABNORMAL) Basic Metabolic Panel (non-fasting) (08/13/2017 5:33 AM EST) athologist Signature Glucose Lvl 126 65 - 199 [facility] mg/dL [facility]ORATORY Comment: Diabetes: [...] [facility] LABORATORY Estimated GFR >60 >=60 [facility] LABORATORY Comment: The reported eGFR should be multiplied b y 1.2 for patients. The MDRD is not an appropriate measure o f renal function for patients with body mass extremes or in patients with acute kidney failure. http://AdECN/DHnkdep http://AdECN/DHMCnkf Specimen Anatomical Collection Method Collection Time Receive d Time (Source) Location / / Volume Laterality Blood specimen 08/13/2017 5:33 AM 018 6:04 (specimen) EST AM EST Resulting Agency Comment Spec In Lab Yonathan Smith MD CHEMISTRY ORDERABLES Performing Organization Address City/[facility]/ZIP [facility] Phon e Number [address] POCT Glucose (08/13/2017 4:29 AM EST) athologist Signature POC Glucose 111 65 - 199 [facility] mg/dL [facility] LABORATORY Comment: Supplemental ranges: [...] [facility]/ZIP Code Phon e Number [address] POCT Glucose (08/12/2017 11:28 PM EST) athologist Signature POC Glucose 164 65 - 199 [facility]dL [facility]ORY Comment: Supplemental ranges: [...] [facility]/[place] [address] (ABNORMAL) POCT Glucose (08/12/2017 7:40 PM EST) athologist Signature POC Glucose 209 (H) 65 - 199 [facility] mg/dL [facility]OR[facility]ORY Comment: Supplemental ranges: <140 mg/dL before meals <180 mg/dL all other times of the day Specimen Anatomical Collection Method Collection Time Receive d Time (Source) Location / / Volume Laterality Blood specimen 08/12/2017 7:40 PM 018 7:40 (specimen) EST PM EST Yonathan Smith MD POINT OF CARE TEST ORDERABLE S Performing Organization Address City/State/ZIP Code Phon e Number [address] POCT Glucose (08/12/2017 4:24 PM EST) athologist Signature POC Glucose 161 65 - 199 [facility] Comment: Supplemental ranges: <140 mg/dL before meals <180 mg/dL all other times of the day Specimen Anatomical Collection Method Collection Time Receive d Time (Source) Location / / Volume Laterality Blood specimen 08/12/2017 4:24 PM 018 4:24 (specimen) EST PM EST Yonathan Smith MD POINT OF CARE TEST ORDERABLE S Performing Organization Address City/State/[place] [address] POCT Glucose (08/12/2017 12:00 PM EST) athologist Signature POC Glucose 167 65 - 199 [facility] mg/dL [facility] Comment: Supplemental ranges: <140 mg/dL before meals <180 mg/dL all other times of the day Specimen Anatomical Collection Method Collection Time Receive d Time (Source) Location / / Volume Laterality Blood specimen 08/12/2017 12:00 8 (specimen) PM EST 12:00 PM EST Yonathan Smith MD POINT OF CARE TEST ORDERABLE S Performing Organization Address City/State/[place] [address] POCT Glucose (08/12/2017 7:25 AM EST) P athologist Signature POC Glucose 152 65 - 199 [facility] mg/dL [facility]ORATORY Comment: Supplemental ranges: <140 mg/dL before meals <180 mg/dL all other times of the day Specimen Anatomical Collection Method Collection Time Receive d Time (Source) Location / / Volume Laterality Blood specimen 08/12/2017 7:25 AM 018 7:25 (specimen) EST AM EST Yonathan Smith MD POINT OF CARE TEST ORDERABLE S Performing Organization Address City/State/[place] [address] (ABNORMAL) Differential, Automated (08/12/2017 6:29 AM EST) Patholo gist Method Time Signature Neutrophils % 78.7 % [facility] LABORATORY Neutr Abs (ANC) 7.94 (H) 1.70 - [facility] 6.10 [facility] x10(3)/[facility] LABORATORY Lymphocytes % 8.8 % [facility] LABORATORY Lymphocytes Abs 0.9 0.9 - 3.2 [facility] x10(3)/[facility] LABORATORY Monocytes % 7.8 % [facility] LABORATORY Monocyte Abs 0.8 0.3 - 0.9 [facility] x10(3)/[facility] LABORATORY Eosinophils % 3.9 % [facility] LABORATORY Eosinophils Abs 0.4 0.0 - 0.4 [facility] x10(3)/[facility] LABORATORY Basophils % 0.3 % [facility] LABORATORY Basophils Abs 0.0 0.0 - 0.1 [facility] x10(3)/[facility] LABORATORY Immature Gran % 0.50 % [place] [...] Organization Address City/State/[place] [address] (ABNORMAL) Hemogram (08/12/2017 6:29 AM EST) Analysis Performed At Patho logist Time Signature WBC 10.1 (H) 4.0 - 9.5 [facility] x10(3)/[facility] LABORATORY RBC 3.02 (L) 4.58 - [facility] 5.54 [facility] x10(6)/[facility] LABORATORY Hemoglobin 8.7 (L) 13.7 - [facility] 16.5 gm/dL [facility] LABORATORY Hematocrit 28.1 (L) 40.5 - [facility] 48.5 % [facility] LABORATORY MCV 93.0 82.9 - [facility] 93.1 [facility] LABORATORY MCH 28.8 27.5 - [facility] 32.1 pg [facility] LABORATORY MCHC 31.0 (L) 32.0 - [facility] 35.7 gm/dL [facility] LABORATORY Platelets 223 145 - 357 [facility] x10(3)/[facility] LABORATORY RDWSD 56.1 (H) 36.0 - [facility] 45.0 [facility] LABORATORY RDWCV 16.4 (H) 11.4 - [facility] SU 13.8 % [facility] LABORATORY MPV 9.0 7.6 - 12.9 [facility] LABORATORY nRBC % Auto 0.0 % [facility] LABORATORY nRBC Abs Auto 0.000 0.000 - [facility] SU 0.000 [facility] x10(3)/[facility] LABORATORY Specimen Anatomical Collection Method Collection Time Receive d Time (Source) Location / / Volume Laterality Blood specimen 08/12/2017 6:29 AM 018 6:38 (specimen) EST AM EST Resulting Agency Comment Spec In Lab Yonathan Smith MD HEMATOLOGY ORDERABLES Performing Organization Address City/[facility]/[place] [address] (ABNORMAL) Prothrombin Time (08/12/2017 [...] Smith MD HEMATOLOGY ORDERABLES Performing Organization Address City/[facility]/[place] [address] (ABNORMAL) Basic Metabolic Panel (non-fasting) (08/12/2017 6:29 AM EST) athologist Signature Glucose Lvl 151 65 - 199 [facility] mg/dL [facility] LABORATORY Comment: Diabetes: [...] estions. Chloride 99 98 - 107 mmol/L [facility] LABORATORY CO2 28 22 - 31 mmol/L [facility] LABORATORY Anion Gap 11 5 - 15 mmol/L [facility] LABORATORY Calcium 7.9 (L) 8.5 - 10.5 mg/dL [facility] LABORATORY Estimated GFR >60 >=60 [facility] LABORATORY Comment: The reported eGFR should be multiplied b y 1.2 for patients. The MDRD is not an appropriate measure o f renal function for patients with body mass extremes or in patients with acute kidney failure. http://AdECN/DHnkdep http://AdECN/DHMCnkf Specimen Anatomical Collection Method Collection Time Receive d Time (Source) Location / / Volume Laterality Blood specimen 08/12/2017 6:29 AM 018 6:38 (specimen) EST AM EST Resulting Agency Comment Spec In Lab Yonathan Smith MD CHEMISTRY ORDERABLES Performing Organization Address City/[facility]/ZIP Code Phon e Number [address] POCT Glucose (08/12/2017 4:08 AM EST) athologist Signature POC Glucose 181 65 - 199 [facility] LABOR[facility]ORY Comment: Supplemental ranges: [facility]/[place] [address] (ABNORMAL) POCT Glucose (08/12/2017 12:17 AM EST) athologist Signature POC Glucose 221 (H) 65 - 199 [facility] mg/dL [facility] LABORATORY Comment: Supplemental ranges: <140 mg/dL before meals <180 mg/dL all other times of the day Specimen Anatomical Collection Method Collection Time Receive d Time (Source) Location / / Volume Laterality Blood specimen 08/12/2017 12:17 8 (specimen) AM EST 12:17 AM EST Yonathan Smith MD POINT OF CARE TEST ORDERABLE S Performing Organization Address City/State/[place] [address] (ABNORMAL) POCT Glucose (08/11/2017 8:52 PM EST) athologist Signature POC Glucose 221 (H) 65 - 199 [facility] mg/dL [facility] LABORATORY Comment: Supplemental ranges: [facility]/[place] [address] POCT Glucose (08/11/2017 5:59 PM EST) athologist Signature POC Glucose 169 65 - 199 [facility] mg/dL [facility] LABORATORY Comment: Supplemental ranges: <140 mg/dL before meals <180 mg/dL all other times of the day Specimen Anatomical Collection Method Collection Time Receive d Time (Source) Location / / Volume Laterality Blood specimen 08/11/2017 5:59 PM 018 5:59 (specimen) EST PM EST Yonathan Smith MD POINT OF CARE TEST ORDERABLE S Performing Organization Address City/State/[place] [address] (ABNORMAL) POCT Glucose (08/11/2017 4:08 PM EST) athologist Signature POC Glucose 240 (H) 65 - 199 [facility] mg/dL [facility] LABORATORY Comment: Supplemental ranges: <140 mg/dL before meals <180 mg/dL all other times of the day Specimen Anatomical Collection Method Collection Time Receive d Time (Source) Location / / Volume Laterality Blood specimen 08/11/2017 4:08 PM 018 4:08 (specimen) EST PM EST Yonathan Smith MD POINT OF CARE TEST ORDERABLE S Performing Organization Address City/State/ZIP Code Phon e Number [address] POCT Glucose (08/11/2017 12:04 PM EST) athologist Signature POC Glucose 182 65 - 199 [facility] LABOR[facility]ORY Comment: Supplemental ranges: [...] [facility]/[place] [address] POCT Glucose (08/11/2017 7:31 AM EST) athologist Signature POC Glucose 156 65 - 199 [facility] mg/dL [facility] LABORATORY Comment: Supplemental ranges: <140 mg/dL before meals <180 mg/dL all other times of the day Specimen Anatomical Collection Method Collection Time Receive d Time (Source) Location / / Volume Laterality Blood specimen 08/11/2017 7:31 AM 018 7:31 (specimen) EST AM EST Yonathan Smith MD POINT OF CARE TEST ORDERABLE S Performing Organization Address City/State/ZIP Code Phon e Number [address] (ABNORMAL) Differential, Automated (08/11/2017 6:16 AM EST) [facility] gist Method Time Signature Neutrophils % 83.7 % [facility] LABORATORY Neutr Abs (ANC) 10.76 (H) 1.70 - [facility] 6.10 [facility] x10(3)/[facility] L LABORATORY Lymphocytes % 6.0 % [facility] LABORATORY Lymphocytes Abs 0.8 (L) 0.9 - 3.2 [facility] x10(3)/[facility] LABORATORY Monocytes % 7.5 % [facility] LABORATORY Monocyte Abs 1.0 (H) 0.3 - 0.9 [facility] x10(3)/[facility] LABORATORY Eosinophils % 2.0 % [facility] LABORATORY Eosinophils Abs 0.3 0.0 - 0.4 [facility] x10(3)/[facility] LABORATORY Basophils % 0.3 % [facility] LABORATORY Basophils Abs 0.0 0.0 - 0.1 [facility] x10(3)/[facility] LABORATORY Immature Gran % 0.50 % [place] [...] Organization Address City/State/[place] [address] (ABNORMAL) Hemogram (08/11/2017 6:16 AM EST) Analysis Performed At Patho logist Time Signature WBC 12.9 (H) 4.0 - 9.5 [facility] x10(3)/[facility] LABORATORY RBC 3.28 (L) 4.58 - [facility] 5.54 [facility] x10(6)/[facility] LABORATORY Hemoglobin 9.5 (L) 13.7 - [facility] 16.5 gm/dL [facility] LABORATORY Hematocrit 29.8 (L) 40.5 - [facility] 48.5 % [facility] LABORATORY MCV 90.9 82.9 - [facility] 93.1 [facility] LABORATORY MCH 29.0 27.5 - [facility] 32.1 [facility] LABORATORY MCHC 31.9 (L) 32.0 - [facility] 35.7 gm/dL [facility] Platelets 236 145 - 357 [facility] x10(3)/[facility] LABORATORY RDWSD 53.5 (H) 36.0 - [facility] 45.0 [facility] LABORATORY RDWCV 16.3 (H) 11.4 - [facility] 13.8 % [facility] LABORATORY MPV 8.8 7.6 - 12.9 [facility] nRBC % Auto 0.0 % [facility] nRBC Abs Auto 0.000 0.000 - [facility] 0.000 [facility] x10(3)/[facility] LABORATORY Specimen Anatomical Collection Method Collection Time Receive d Time (Source) Location / / Volume Laterality Blood specimen 08/11/2017 6:16 AM 018 6:24 (specimen) EST AM EST Resulting Agency Comment Spec In Lab Yonathan Smith MD HEMATOLOGY ORDERABLES Performing Organization Address City/State/ZIP Code Phon e Number [place] [id number] HOSPITAL LABORATORY Drive (ABNORMAL) Prothrombin Time (08/11/2017 [...] Organization Address City/State/[place] [address] Basic Metabolic Panel (non-fasting) (08/11/2017 6:16 AM EST) P athologist Signature Glucose Lvl 139 65 - 199 [facility] mg/dL [facility] LABORATORY Comment: Diabetes: [...] [facility] LABORATORY Estimated GFR >60 >=60 [facility] LABORATORY Comment: The reported eGFR should be multiplied b y 1.2 for patients. The MDRD is not an appropriate measure o f renal function for patients with body mass extremes or in patients with acute kidney failure. http://[employer]/DHnkdep [email or web address]://Slack[employer]/DHMCnkf Specimen Anatomical Collection Method Collection Time Receive d Time (Source) Location / / Volume Laterality Blood specimen 08/11/2017 6:16 AM 018 6:24 (specimen) EST AM EST Resulting Agency Comment Spec In Lab Yonathan Smith MD CHEMISTRY ORDERABLES Performing Organization Address City/State/ZIP Code Phon e Number [address] POCT Glucose (08/11/2017 4:07 AM EST) athologist Signature POC Glucose 162 65 - 199 [facility] mg/dL [facility] LABORATORY Comment: Supplemental ranges: [facility]/ZIP Code Phon e Number [place] [address] POCT Glucose (08/10/2017 11:59 PM EST) athologist Signature POC Glucose 166 65 - 199 [facility] mg/dL [facility] LABORATORY Comment: Supplemental ranges: [...] [facility]/ZIP Code Phon e Number [place] [facility] [address] POCT Glucose (08/10/2017 8:12 PM EST) athologist Signature POC Glucose 156 65 - 199 [facility] mg/dL [facility] LABORATORY Comment: Supplemental ranges: <140 mg/dL before meals <180 mg/dL all other times of the day Specimen Anatomical Collection Method Collection Time Receive d Time (Source) Location / / Volume Laterality Blood specimen 08/10/2017 8:12 PM 018 8:12 (specimen) EST PM EST Yonathan Smith MD POINT OF CARE TEST ORDERABLE S Performing Organization Address City/State/[place] [address] (ABNORMAL) POCT Glucose (08/10/2017 4:42 PM EST) P athologist Signature POC Glucose 211 (H) 65 - 199 [facility] mg/dL [facility] LABORATORY Comment: Supplemental ranges: <140 mg/dL before meals <180 mg/dL all other times of the day Specimen Anatomical Collection Method Collection Time Receive d Time (Source) Location / / Volume Laterality Blood specimen 08/10/2017 4:42 PM 018 4:42 (specimen) EST PM EST Yonathan Smith MD POINT OF CARE TEST ORDERABLE S Performing Organization Address City/State/ZIP Code Phon e Number [address] (ABNORMAL) Differential, Automated (08/10/2017 2:30 PM EST) Patholo gist Method Time Signature Neutrophils % 87.6 % [facility] LABORATORY Neutr Abs (ANC) 9.90 (H) 1.70 - [facility] 6.10 [facility] x10(3)/[facility] L LABORATORY Lymphocytes % 4.3 % [facility] LABORATORY Lymphocytes Abs 0.5 (L) 0.9 - 3.2 [facility] x10(3)/[facility] LABORATORY Monocytes % 6.0 % [facility] LABORATORY Monocyte Abs 0.7 0.3 - 0.9 [facility] x10(3)/[facility] LABORATORY Eosinophils % 1.1 % [facility] LABORATORY Eosinophils Abs 0.1 0.0 - 0.4 [facility] x10(3)/[facility] LABORATORY Basophils % 0.4 % [facility] LABORATORY Basophils Abs 0.0 0.0 - 0.1 [facility] x10(3)/[facility] LABORATORY Immature Gran % 0.60 [...] Organization Address City/State/[place] [address] (ABNORMAL) Hemogram (08/10/2017 2:30 PM EST) Analysis Performed At Patho logist Time Signature WBC 11.3 (H) 4.0 - 9.5 [facility] x10(3)/[facility] LABORATORY RBC 3.13 (L) 4.58 - [facility] 5.54 [facility] x10(6)/[facility] LABORATORY Hemoglobin 8.9 (L) 13.7 - [facility] 16[facility] gm/dL [facility] LABORATORY Hematocrit 28.4 (L) 40.5 - [facility] 48.5 % [facility] LABORATORY MCV 90.7 82.9 - [facility] 93.1 [facility] LABORATORY MCH 28.4 27.5 - [facility] 32.1 pg [facility] LABORATORY MCHC 31.3 (L) 32.0 - [facility] 35.7 gm/dL [facility] LABORATORY Platelets 213 145 - 357 [facility] x10(3)/[facility] LABORATORY RDWSD 53.7 (H) 36.0 - [facility] 45.0 [facility] LABORATORY RDWCV 16.4 (H) 11.4 - [facility] SU 13.8 % [facility] LABORATORY MPV 8.9 7.6 - 12.9 [facility] LABORATORY nRBC % Auto 0.0 % [facility] LABORATORY nRBC Abs Auto 0.000 0.000 - [facility] SU 0.000 [facility] x10(3)/[facility] LABORATORY Specimen Anatomical Collection Method Collection Time Receive d Time (Source) Location / / Volume Laterality Blood specimen 08/10/2017 2:30 PM 018 2:48 (specimen) EST PM EST Resulting Agency Comment Spec In Lab Yonathan Smith MD HEMATOLOGY ORDERABLES Performing Organization Address City/State/[place] [address] (ABNORMAL) POCT Glucose (08/10/2017 1:50 PM EST) athologist Signature POC Glucose 243 (H) 65 - 199 [facility]/dL [facility] LAB[facility]ORY Comment: Supplemental ranges: [...] [facility]/[place] [address] POCT Glucose (08/10/2017 11:21 AM EST) athologist Signature POC Glucose 156 65 - 199 [facility] mg/dL [facility] LABORATORY Comment: Supplemental ranges: <140 mg/dL before meals <180 mg/dL all other times of the day Specimen Anatomical Collection Method Collection Time Receive d Time (Source) Location / / Volume Laterality Blood specimen 08/10/2017 11:21 8 (specimen) AM EST 11:21 AM EST Yonathan Smith MD POINT OF CARE TEST ORDERABLE S Performing Organization Address City/State/[place] [address] (ABNORMAL) Differential, Automated (08/10/2017 10:28 AM EST) [facility] gist Method Time Signature Neutrophils % 85.3 % [facility] LABORATORY Neutr Abs (ANC) 9.43 (H) 1.70 - [facility] 6.10 [facility] x10(3)/[facility] L LABORATORY Lymphocytes % 5.5 % [facility] LABORATORY Lymphocytes Abs 0.6 (L) 0.9 - 3.2 [facility] x10(3)/[facility] LABORATORY Monocytes % 5.9 % [facility] LABORATORY Monocyte Abs 0.6 0.3 - 0.9 [facility] x10(3)/[facility] LABORATORY Eosinophils % 2.1 % [facility] LABORATORY Eosinophils Abs 0.2 0.0 - 0.4 [facility] x10(3)/[facility] LABORATORY Basophils % 0.4 % [facility] LABORATORY Basophils Abs 0.0 0.0 - 0.1 [facility] x10(3)/[facility] LABORATORY Immature Gran % 0.80 % [facility] LABORATORY Comment: Immature granulocytes(IG's)percentage [...] Organization Address City/State/[place] [address] (ABNORMAL) Hemogram (08/10/2017 10:28 AM EST) Analysis Performed At Patho logist Time Signature WBC 11.0 (H) 4.0 - 9.5 [facility] x10(3)/[facility] LABORATORY RBC 3.02 (L) 4.58 - [facility] 5.54 [facility] x10(6)/[facility] LABORATORY Hemoglobin 8.8 (L) 13.7 - [facility] 16.5 gm/dL [facility] LABORATORY Hematocrit 28.1 (L) 40.5 - [facility] 48.5 % [facility] LABORATORY MCV 93.0 82.9 - [facility] 93.1 [facility] LABORATORY MCH 29.1 27.5 - [facility] 32.1 pg [facility] LABORATORY MCHC 31.3 (L) 32.0 - [facility] 35.7 gm/dL [facility] LABORATORY Platelets 207 145 - 357 [facility] x10(3)/[facility] LABORATORY RDWSD 55.3 (H) 36.0 - [facility] 45.0 [facility] LABORATORY RDWCV 16.4 (H) 11.4 - [facility] 13.8 % [facility] LABORATORY MPV 9.0 7.6 - 12.9 [facility] LABORATORY nRBC % Auto 0.0 % [facility] LABORATORY nRBC Abs Auto 0.000 0.000 - [facility] 0.000 [facility] x10(3)/[facility] LABORATORY Specimen Anatomical Collection Method Collection Time Receive d Time (Source) Location / / Volume Laterality Blood specimen 08/10/2017 10:28 8 (specimen) AM EST 10:35 AM EST Resulting Agency Comment Spec In Lab Yonathan Smith MD HEMATOLOGY ORDERABLES Performing Organization Address City/State/ZIP Code Phon e Number [place] [id number] HOSPITAL LABORATORY Drive VS Angiogram/intervention (vascular) (08/10/2017 [...] 5. Completion RLE angiogram 6. L MANAGER OF TRAINING angiogram 7. 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 L MANAGER OF TRAINING access in the distal L MANAGER OF TRAINING. - Closure device: Mynx Technical Procedure: ?The [...] for a 45cm 5F Destination. V18 and [place] a nd QuickCross catheters were used to [...] Access appeared in the distal R MANAGER OF TRAINING. Closure and sheath removal was performed with [...] 5. Completion RLE angiogram 6. L MANAGER OF TRAINING angiogram 7. 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 L MANAGER OF TRAINING access in the distal L MANAGER OF TRAINING. - Closure device: Mynx Technical Procedure: The [...] for a 45cm 5F Destination. V18 and [place] a nd QuickCross catheters were used to [...] Access appeared in the distal R MANAGER OF TRAINING. Closure and sheath removal was performed with [...] (ABNORMAL) Differential, Automated (08/10/2017 5:50 AM EST) [facility] Method Time Signature Neutrophils % 80.1 % [facility] LABORATORY Neutr Abs (ANC) 9.01 (H) 1.70 - [facility] 6.10 [facility] x10(3)/[facility] LABORATORY Lymphocytes % 8.8 % [facility] LABORATORY Lymphocytes Abs 1.0 0.9 - 3.2 [facility] LABORATORY Monocytes % 8.3 % [facility] LABORATORY Monocyte Abs 0.9 0.3 - 0.9 [facility] LABORATORY Eosinophils % 2.0 % [facility] LABORATORY Eosinophils Abs 0.2 0.0 - 0.4 [facility] x10(3)/[facility] LABORATORY Basophils % 0.4 % [facility] LABORATORY Basophils Abs 0.0 0.0 - 0.1 [facility] x10(3)/[facility] LABORATORY Immature Gran % 0.40 % [facility] [...] Organization Address City/State/[place] [address] (ABNORMAL) Hemogram (08/10/2017 5:50 AM EST) Analysis Performed At Patho logist Time Signature WBC 11.3 (H) 4.0 - 9.5 [facility] x10(3)/[facility] LABORATORY RBC 3.15 (L) 4.58 - [facility] 5.54 [facility] x10(6)/[facility] LABORATORY Hemoglobin 8.9 (L) 13.7 - [facility] gm/dL [facility] LABORATORY Hematocrit 29.0 (L) 40.5 - [facility] 48.5 % [facility] LABORATORY MCV 92.1 82.9 - [facility] 93[facility]1 [facility] LABORATORY MCH 28.3 27.5 - [facility] 32.1 pg [facility] LABORATORY MCHC 30.7 (L) 32.0 - [facility] 35.7 gm/dL [facility] LABORATORY Platelets 231 145 - 357 [facility] x10(3)/[facility] LABORATORY RDWSD 53.9 (H) 36.0 - [facility] 45.0 [facility] LABORATORY RDWCV 16.2 (H) 11.4 - [facility] 13.8 % [facility] LABORATORY MPV 8.7 7.6 - 12.9 [facility] LABORATORY nRBC % Auto 0.0 % [facility] LABORATORY nRBC Abs Auto 0.000 0.000 - [facility] 0.000 [facility] x10(3)/[facility] LABORATORY Specimen Anatomical Collection Method Collection Time Receive d Time (Source) Location / / Volume Laterality Blood specimen 08/10/2017 5:50 AM 018 5:59 (specimen) EST AM EST Resulting Agency Comment Spec In Lab Yonathan Smith MD HEMATOLOGY ORDERABLES Performing Organization Address City/State/[place] [address] (ABNORMAL) Basic Metabolic Panel (non-fasting) (08/10/2017 5:50 AM EST) P athologist Signature Glucose Lvl 135 65 - 199 [facility] mg/dL [facility] LABORATORY Comment: Diabetes: [...] [facility] LABORATORY Estimated GFR >60 >=60 [facility] LABORATORY Comment: The reported eGFR should be multiplied b y 1.2 for patients. The MDRD is not an appropriate measure o f renal function for patients with body mass extremes or in patients with acute kidney failure. http://[employer]/DHnkdep [email or web address]://[email or web address]/DHMCnkf Specimen Anatomical Collection Method Collection Time Receive d Time (Source) Location / / Volume Laterality Blood specimen 08/10/2017 5:50 AM 018 5:59 (specimen) EST AM EST Resulting Agency Comment Spec In Lab Yonathan Smith MD CHEMISTRY ORDERABLES Performing Organization Address [facility] [place] [address] (ABNORMAL) Prothrombin Time (08/10/2017 5:50 AM EST) athologist Signature PT 16.8 (H) 11.8 - 14.0 [facility] LABORATORY INR 1.4 (H) 0.9 - 1.1 [facility] LABORATORY [...] Smith MD HEMATOLOGY ORDERABLES Performing Organization Address City/[facility] [place] [address] (ABNORMAL) POCT Glucose (08/10/2017 4:01 AM EST) athologist Signature POC Glucose 206 (H) 65 - 199 [facility] mg/dL [facility] LABORATORY Comment: Supplemental ranges: <140 mg/dL before meals <180 mg/dL all other times of the day Specimen Anatomical Collection Method Collection Time Receive d Time (Source) Location / / Volume Laterality Blood specimen 08/10/2017 4:01 AM 018 4:01 (specimen) EST AM EST Yonathan Smith MD POINT OF CARE TEST ORDERABLE S Performing Organization Address City/State/[place] [address] POCT Glucose (08/10/2017 2:01 AM EST) athologist Signature POC Glucose 188 65 - 199 [facility] mg/dL [facility]OR[facility] Comment: Supplemental ranges: [facility]/[place] [address] (ABNORMAL) POCT Glucose (08/09/2017 11:42 PM EST) athologist Signature POC Glucose 283 (H) 65 - 199 [facility] SU mg/dL [facility] LABORATORY Comment: Supplemental ranges: <140 mg/dL before meals <180 mg/dL all other times of the day Specimen Anatomical Collection Method Collection Time Receive d Time (Source) Location / / Volume Laterality Blood specimen 08/09/2017 11:42 8 (specimen) PM EST 11:42 PM EST Yonathan Smith MD POINT OF CARE TEST ORDERABLE S Performing Organization Address City/State/[place] [address] POCT Glucose (08/09/2017 8:55 PM EST) athologist Signature POC Glucose 182 65 - 199 [facility] mg/dL [facility] Comment: Supplemental ranges: [facility]/[place] [address] (ABNORMAL) APTT (08/09/2017 6:42 PM EST) athologist Signature PTT 90 (H) 25 - 35 sec [facility] LABOR[facility]ORY Comment: The recommended therapeutic range for fu ll dose, unfractionated heparin at [facility] is 80 ? [...] Smith MD HEMATOLOGY ORDERABLES Performing Organization Address City/[facility]/[place] [address] POCT Glucose (08/09/2017 4:41 PM EST) athologist Signature POC Glucose 195 65 - 199 [facility] mg/dL [facility]OR[facility] Comment: Supplemental ranges: [...] [facility]/[place] [address] POCT Glucose (08/09/2017 12:29 PM EST) athologist Signature POC Glucose 140 65 - 199 [facility] mg/dL [facility]OR[facility] Comment: Supplemental ranges: <140 mg/dL before meals <180 mg/dL all other times of the day Specimen Anatomical Collection Method Collection Time Receive d Time (Source) Location / / Volume Laterality Blood specimen 08/09/2017 12:29 8 (specimen) PM EST 12:29 PM EST Yonathan Smith MD POINT OF CARE TEST ORDERABLE S Performing Organization Address [facility]/ZIP Code Phon e Number [address] POCT Glucose (08/09/2017 9:59 AM EST) P athologist Signature POC Glucose 135 65 - 199 [facility] mg/dL [facility] LABOR[facility]ORY Comment: Supplemental ranges: <140 mg/dL before meals <180 mg/dL all other times of the day Specimen Anatomical Collection Method Collection Time Receive d Time (Source) Location / / Volume Laterality Blood specimen 08/09/2017 9:59 AM 018 9:59 (specimen) EST AM EST Yonathan Smith MD POINT OF CARE TEST ORDERABLE S Performing Organization Address [facility]/[place] [address] Specimen to Pathology (08/09/2017 8:41 AM EST) Specimen Anatomical Collection Method Collection Time Receive d Time (Source) Location / / Volume Laterality AP Specimen 08/09/2017 8:41 AM 8 8:41 EST AM EST Narrative [facility] LABORAT ORY - 08/09/2017 8:41 AM EST Specimen requisition ordered. ??Separate Pathology report to follow Yonathan Smith MD PATHOLOGY/CYTOLOGY ORDERABLE S Performing Organization Address City/[facility]/[place] [address] Surgical Pathology Report (08/09/2017 8:40 AM EST) Component Value Ref Test Analysis Performed At Patholo gist Range Method Time Signature Surgical [id number] ? Location: [facility]; [facility]; A [facility] Report The signing pathologist has (i) [...] Henrique Flower Verified: ??08/13/2017 ?Pathologist Performed at: ??-[facility] Dept. of Pathology, [place], [place] CLINICAL INFORMATION Specimen Submitted: A - [...] Organization Address City/State/[place] [address] Anaerobic Culture (08/09/2017 8:30 AM EST) [facility] Method Time Signature Anaerobic No anaerobic [facility] Culture organisms [facility] LABORATORY Specimen Anatomical Collection Method Collection [...] ORDER ROBSON Performing Organization Address City/[facility]/[place] [address] (ABNORMAL) Abscess/Wound Aspirate Culture (08/09/2017 8:30 AM EST) [facility] Method Time Signature Abscess/Wound Moderate mixed [facility] Aspirate bacterial [place] Culture morphotypes [facility] normal LABORATORY cutaneous leroy (A) Gram Stain Rare White Blood Cells [facility] Few Gram Positive Cocci in pairs [place] () [facility] Organism Gram Positive [facility] Cocci in pairs [place] () [facility] LABOR[facility]ORY Specimen Anatomical Collection Method Collection [...] ORDER ROBSON Performing Organization Address City/[facility]/ZIP Code [place] [address] POCT Glucose (08/09/2017 4:28 AM EST) P athologist Signature POC Glucose 128 65 - 199 [facility] mg/dL [facility] LABOR[facility]ORY Comment: Supplemental ranges: <140 mg/dL before meals <180 mg/dL all other times of the day Specimen Anatomical Collection Method Collection Time Receive d Time (Source) Location / / Volume Laterality Blood specimen 08/09/2017 4:28 AM 018 4:28 (specimen) EST AM EST Yonathan Smith MD POINT OF CARE TEST ORDERABLE S Performing Organization Address City/State/[place] [address] ABORH Recheck Status (08/09/2017 1:10 AM EST) [facility] Method Time Signature ABORH Type Completed [facility] LABORATORY Specimen Anatomical Collection Method Collection Time Receive d Time (Source) Location / / Volume Laterality Blood specimen 08/09/2017 1:10 AM 018 1:35 (specimen) EST AM EST Resulting Agency Comment Spec In Lab Yonathan Smith MD BLOOD BANK ORDERABLES Performing Organization Address City/State/[place] [address] Antibody screen (08/09/2017 1:10 AM EST) [facility] Method [place] Signature Ab Screen Negative [facility] LABORATORY Expires at 08/12/2017 [facility] [id number] on: [facility] LABORATORY Specimen Anatomical Collection Method Collection Time Receive d Time (Source) Location / / Volume Laterality Blood specimen 08/09/2017 1:10 AM 018 1:35 (specimen) EST AM EST Resulting Agency Comment Spec In Lab Yonathan Smith MD BLOOD BANK ORDERABLES Performing Organization Address City/State/[place] [address] ABO/Rh Typing (08/09/2017 1:10 [...] Organization Address City/State/[place] [address] (ABNORMAL) APTT (08/09/2017 1:10 AM EST) P athologist Signature PTT 86 (H) 25 - 35 sec [facility]OR[facility] Comment: The recommended therapeutic range for fu ll dose, unfractionated heparin at [facility] is 80 ? [...] Organization Address City/State/[place] [address] (ABNORMAL) Differential, Automated (08/09/2017 1:10 AM EST) [facility] Method Time Signature Neutrophils % 76.2 % [facility] LABORATORY Neutr Abs (ANC) 8.59 (H) 1.70 - [facility] 6.10 [facility] x10(3)/[facility] LABORATORY Lymphocytes % 11.0 % [facility] LABORATORY Lymphocytes Abs 1.2 0.9 - 3.2 [facility] x10(3)/[facility] LABORATORY Monocytes % 8.4 % [facility] LABORATORY Monocyte Abs 1.0 (H) 0.3 - 0.9 [facility] x10(3)/[facility] LABORATORY Eosinophils % 3.5 % [facility] LABORATORY Eosinophils Abs 0.4 0.0 - 0.4 [facility] x10(3)/[facility] LABORATORY Basophils % 0.5 % [facility] LABORATORY Basophils Abs 0.1 0.0 - 0.1 [facility] x10(3)/[facility] LABORATORY Immature Gran % 0.40 % [facility] [...] Organization Address City/State/[place] [address] (ABNORMAL) Hemogram (08/09/2017 1:10 AM EST) Analysis Performed At Patho logist Time Signature WBC 11.3 (H) 4.0 - 9.5 [facility] x10(3)/[facility] LABORATORY RBC 3.47 (L) 4.58 - [facility] 5.54 [facility] x10(6)/[facility] LABORATORY Hemoglobin 10.0 (L) 13.7 - [facility] 16[facility]5 gm/dL [facility] LABORATORY Hematocrit 31.9 (L) 40.5 - [facility] 48.5 % [facility]ORATORY MCV 91.9 82.9 - [facility] 93.1 [facility] LABORATORY MCH 28.8 27.5 - [facility] 32.1 pg [facility] LABORATORY MCHC 31.3 (L) 32.0 - [facility] 35.7 gm/dL [facility] LABORATORY Platelets 234 145 - 357 [facility] x10(3)/[facility] LABORATORY RDWSD 54.0 (H) 36.0 - [facility] SU 45.0 [facility] LABORATORY RDWCV 16.2 (H) 11.4 - [facility] SU 13.8 % [facility] LABORATORY MPV 8.7 7.6 - 12.9 [facility] LABORATORY nRBC % Auto 0.0 % [facility] LABORATORY nRBC Abs Auto 0.000 0.000 - [facility] SU 0.000 [facility] x10(3)/[facility] LABORATORY Specimen Anatomical Collection Method Collection Time Receive d Time (Source) Location / / Volume Laterality Blood specimen 08/09/2017 1:10 AM 018 1:19 (specimen) EST AM EST Resulting Agency Comment Spec In Lab Yonathan Smith MD HEMATOLOGY ORDERABLES Performing Organization Address City/[facility]/[place] [address] (ABNORMAL) Prothrombin Time (08/09/2017 [...] Smith MD HEMATOLOGY ORDERABLES Performing Organization Address City/[facility]/[place] [address] (ABNORMAL) Basic Metabolic Panel (non-fasting) (08/09/2017 1:10 AM EST) P athologist Signature Glucose Lvl 108 65 - 199 [facility] mg/dL [facility] LABORATORY Comment: Diabetes: [...] or in patients with acute kidney failure. [email or web address] [email or web address] Specimen Anatomical Collection Method Collection Time Receive d Time (Source) Location / / Volume Laterality Blood specimen 08/09/2017 1:10 AM 018 1:19 (specimen) EST AM EST Resulting Agency Comment Spec In Lab Yonathan Smith MD CHEMISTRY ORDERABLES Performing Organization Address City/State/ZIP Code Phon e Number [address] POCT Glucose (08/09/2017 12:05 AM EST) athologist Signature POC Glucose 128 65 - 199 [facility] mg/dL [facility] LABORATORY Comment: Supplemental [...] [facility]/[place] [address] (ABNORMAL) POCT Glucose (08/08/2017 7:36 PM EST) athologist Signature POC Glucose 215 (H) 65 - 199 [facility] mg/dL [facility] LABOR[facility]ORY Comment: Supplemental ranges: <140 mg/dL before meals <180 mg/dL all other times of the day Specimen Anatomical Collection Method Collection Time Receive d Time (Source) Location / / Volume Laterality Blood specimen 08/08/2017 7:36 PM 018 7:36 (specimen) EST PM EST Yonathan Smith MD POINT OF CARE TEST ORDERABLE S Performing Organization Address City/State/[place] [address] (ABNORMAL) POCT Glucose (08/08/2017 6:23 PM EST) P athologist Signature POC Glucose 216 (H) 65 - 199 [facility] mg/dL [facility] Comment: Supplemental ranges: [...] [facility]/[place] [address] (ABNORMAL) APTT (08/08/2017 6:00 PM EST) P athologist Signature PTT 97 (H) 25 - 35 sec [facility]OR[facility] Comment: The recommended therapeutic range for fu ll dose, unfractionated heparin at [facility] is 80 ? [...] Smith MD HEMATOLOGY ORDERABLES Performing Organization Address City/[facility]/[place] [address] POCT Glucose (08/08/2017 4:42 PM EST) athologist Signature POC Glucose 78 65 - 199 [facility] mg[facility]dL [facility] Comment: Supplemental ranges: <140 mg/dL before meals <180 mg/dL all other times of the day Specimen Anatomical Collection Method Collection Time Receive d Time (Source) Location / / Volume Laterality Blood specimen 08/08/2017 4:42 PM 018 4:42 (specimen) EST PM EST Yonathan Smith MD POINT OF CARE TEST ORDERABLE S Performing Organization Address City/State/[place] [address] (ABNORMAL) POCT Glucose (08/08/2017 4:01 PM EST) athologist Signature POC Glucose 58 (L) 65 - 199 [facility] mg[facility]dL [facility] Comment: Supplemental ranges: <140 mg/dL before meals <180 mg/dL all other times of the day Specimen Anatomical Collection Method Collection Time Receive d Time (Source) Location / / Volume Laterality Blood specimen 08/08/2017 4:01 PM 018 4:01 (specimen) EST PM EST Yonathan Smith MD POINT OF CARE TEST ORDERABLE S Performing Organization Address City/State/[place] [address] POCT Glucose (08/08/2017 11:51 AM EST) athologist Signature POC Glucose 90 65 - 199 [facility] mg[facility]dL [facility] Comment: Supplemental ranges: <140 mg/dL before meals <180 mg/dL all other times of the day Specimen Anatomical Collection Method Collection Time Receive d Time (Source) Location / / Volume Laterality Blood specimen 08/08/2017 11:51 8 (specimen) AM EST 11:51 AM EST Yonathan Smith MD POINT OF CARE TEST ORDERABLE S Performing Organization Address City/State/[place] [address] (ABNORMAL) APTT (08/08/2017 10:27 AM EST) athologist Signature PTT 64 (H) 25 - 35 sec [facility] Comment: The recommended therapeutic range for fu ll dose, unfractionated heparin at [facility] is 80 ? [...] Address City/State/ZIP Code Phon e Number [address] POCT Glucose (08/08/2017 8:02 AM EST) athologist Signature POC Glucose 178 65 - 199 [facility] mg/dL [facility]ORY Comment: Supplemental [...] [facility]/[place] [address] (ABNORMAL) APTT (08/08/2017 4:51 AM EST) athologist Signature PTT >160 25 - 35 [facility] (Critical) sec [facility] Comment: Called by: HOWARD, Read back by: Melba Jaramillo, Date/Time:08/08/17 05:43. The recommended therapeutic range for fu ll dose, unfractionated heparin at [facility] is 80 ? [...] Organization Address City/State/[place] [address] (ABNORMAL) Differential, Automated (08/08/2017 4:51 AM EST) [facility] gist Method Time Signature Neutrophils % 77.9 % [facility] LABORATORY Neutr Abs (ANC) 8.17 (H) 1.70 - [facility] 6.10 [facility] x10(3)/[facility] LABORATORY Lymphocytes % 10.3 % [facility] LABORATORY Lymphocytes Abs 1.1 0.9 - 3.2 [facility] x10(3)/[facility] LABORATORY Monocytes % 7.0 % [facility] LABORATORY Monocyte Abs 0.7 0.3 - 0.9 [facility] x10(3)/[facility] LABORATORY Eosinophils % 3.6 % [facility] LABORATORY Eosinophils Abs 0.4 0.0 - 0.4 [facility] x10(3)/[facility] LABORATORY Basophils % 0.5 % [facility] LABORATORY Basophils Abs 0.0 0.0 - 0.1 [facility] x10(3)/[facility] LABORATORY Immature Gran % 0.70 % [...] Organization Address City/State/[place] [address] (ABNORMAL) Hemogram (08/08/2017 4:51 AM EST) Analysis Performed At Patho logist Time Signature WBC 10.5 (H) 4.0 - 9.5 [facility](3[facility] LABORATORY RBC 3.27 (L) 4.58 - [facility] 5.54 [facility] x10(6)/[facility] LABORATORY Hemoglobin 9.3 (L) 13.7 - [facility] 16.5 gm/dL [facility] Hematocrit 30.3 (L) 40.5 - [facility] 48.5 % [facility]ATORY MCV 92.7 82.9 - [facility] 93.1 [facility] LABORATORY MCH 28.4 27.5 - [facility] 32.1 pg [facility] LABORATORY MCHC 30.7 (L) 32.0 - [facility] 35.7 gm/dL [facility]ORAT[facility] Platelets 252 145 - 357 [facility] x10(3)/[facility] LABORATORY RDWSD 54.6 (H) 36.0 - [facility] 45.0 [facility] LABORATORY RDWCV 16.2 (H) 11.4 - [facility] 13.8 % [facility] LABORATORY MPV 9.1 7.6 - 12.9 [facility] LABORATORY nRBC % Auto 0.0 % [facility] LABORATORY nRBC Abs Auto 0.000 0.000 - [facility] 0.000 [facility] x10(3)/[facility] LABORATORY Specimen Anatomical Collection Method Collection Time Receive d Time (Source) Location / / Volume Laterality Blood specimen 08/08/2017 4:51 AM 018 5:14 (specimen) EST AM EST Resulting Agency Comment Spec In Lab Yonathan Smith MD HEMATOLOGY ORDERABLES Performing Organization Address City/State/[place] [address] (ABNORMAL) Prothrombin Time (08/08/2017 [...] Organization Address City/State/[place] [address] (ABNORMAL) Basic Metabolic Panel (non-fasting) (08/08/2017 4:51 AM EST) athologist Signature Glucose Lvl 229 (H) 65 - 199 [facility] mg/dL [facility] Comment: Diabetes: [...] Chloride 94 (L) 98 - 107 mmol/L [facility] [...] or in patients with acute kidney failure. [email or web address] [email or web address]/DHMCnkf Specimen Anatomical Collection Method Collection Time Receive d Time (Source) Location / / Volume Laterality Blood specimen 08/08/2017 4:51 AM 018 5:14 (specimen) EST AM EST Resulting Agency Comment Spec In Lab Yonathan Smith MD CHEMISTRY ORDERABLES Performing Organization Address City/[facility]/ZIP Code Phon e Number [address] POCT Glucose (08/08/2017 4:20 AM EST) athologist Signature POC Glucose 193 65 - 199 [facility] mg/dL [facility] LABORATORY Comment: Supplemental [...] Address City/State/ZIP Code Phon e Number [address] POCT Glucose (08/07/2017 11:11 PM EST) athologist Signature POC Glucose 124 65 - 199 [facility] Comment: Supplemental ranges: [...] [facility]/[place] [address] (ABNORMAL) APTT (08/07/2017 10:18 PM EST) athologist Signature PTT 114 (H) 25 - 35 sec [facility] Comment: The recommended therapeutic range for fu ll dose, unfractionated heparin at [facility] is 80 ? [...] Smith MD HEMATOLOGY ORDERABLES Performing Organization Address City/[facility]/[place] [address] POCT Glucose (08/07/2017 8:10 PM EST) athologist Signature POC Glucose 140 65 - 199 [facility] mg/dL [facility] Comment: Supplemental [...] [facility]/[place] [address] POCT Glucose (08/07/2017 5:27 PM EST) athologist Signature POC Glucose 187 65 - 199 [facility] mg/dL [facility] Comment: Supplemental ranges: [...] [facility]/[place] [address] POCT Glucose (08/07/2017 3:29 PM EST) athologist Signature POC Glucose 86 65 - 199 [facility] mg/dL [facility] Comment: Supplemental ranges: <140 mg/dL before meals <180 mg/dL all other times of the day Specimen Anatomical Collection Method Collection Time Receive d Time (Source) Location / / Volume Laterality Blood specimen 08/07/2017 3:29 PM 018 3:29 (specimen) EST PM EST Yonathan Smith MD POINT OF CARE TEST ORDERABLE S Performing Organization Address [facility]/ZIP [facility] [place] [address] (ABNORMAL) APTT (08/07/2017 2:50 PM EST) athologist Signature PTT 60 (H) 25 - 35 sec [facility] Comment: The recommended therapeutic range for fu ll dose, unfractionated heparin at [facility] is 80 ? [...] Smith MD HEMATOLOGY ORDERABLES Performing Organization Address City/[facility]/ZIP [facility] Phon e Number [address] (ABNORMAL) POCT Glucose (08/07/2017 2:23 PM EST) athologist Signature POC Glucose 55 (L) 65 - 199 [facility] mg/dL [facility] Comment: Supplemental ranges: <140 mg/dL before meals <180 mg/dL all other times of the day Specimen Anatomical Collection Method Collection Time Receive d Time (Source) Location / / Volume Laterality Blood specimen 08/07/2017 2:23 PM 018 2:23 (specimen) EST PM EST Yonathan Smith MD POINT OF CARE TEST ORDERABLE S Performing Organization Address City/State/ZIP Code Phon e Number [address] POCT Glucose (08/07/2017 12:08 PM EST) P athologist Signature POC Glucose 77 65 - 199 [facility] mg[facility]dL [facility] Comment: Supplemental ranges: <140 mg/dL before meals <180 mg/dL all other times of the day Specimen Anatomical Collection Method Collection Time Receive d Time (Source) Location / / Volume Laterality Blood specimen 08/07/2017 12:08 8 (specimen) PM EST 12:08 PM EST Yonathan Smith MD POINT OF CARE TEST ORDERABLE S Performing Organization Address City/State/ZIP Code Phon e Number [address] (ABNORMAL) Differential, Automated (08/07/2017 7:30 AM EST) Patholo gist Method Time Signature Neutrophils % 73.8 % [facility] LABORATORY Neutr Abs (ANC) 7.17 (H) 1.70 - [facility] 6.10 [facility] x10(3)/[facility] [facility] Lymphocytes % 12.2 % [facility] LABORATORY Lymphocytes Abs 1.2 0.9 - 3.2 [facility] x10(3)/[facility] LABORATORY Monocytes % 9.0 % [facility] LABOR[facility] Monocyte Abs 0.9 0.3 - 0.9 [facility] x10(3)/[facility] LABORATORY Eosinophils % 3.9 % [facility]OR[facility] Eosinophils Abs 0.4 0.0 - 0.4 [facility] x10(3)/[facility] LABORATORY Basophils % 0.6 % [facility] LABORATORY Basophils Abs 0.1 0.0 - 0.1 [facility] x10(3)/[facility] LABORATORY Immature Gran % 0.50 % [facility] [...] Organization Address City/State/[place] [address] (ABNORMAL) Hemogram (08/07/2017 7:30 AM EST) Analysis Performed At Patho logist Time Signature WBC 9.7 (H) 4.0 - 9.5 [facility] x10(3)/[facility] LABORATORY RBC 3.54 (L) 4.58 - [facility] 5.54 [facility] x10(6)/[facility] LABORATORY Hemoglobin 9.9 (L) 13.7 - [facility] 16.5 gm/dL [facility] LABORATORY Hematocrit 32.3 (L) 40.5 - [facility] 48.5 % [facility] LABORATORY MCV 91.2 82.9 - [facility] 93.1 [facility] LABORATORY MCH 28.0 27.5 - [facility]1 pg [facility] LAB[facility] MCHC 30.7 (L) 32.0 - [facility] 35.7 gm/dL [facility] LAB[facility]ORY Platelets 312 145 - 357 [facility] x10(3)/[facility] LABORATORY RDWSD 53.2 (H) 36.0 - [facility] 45.0 [facility] LABORATORY RDWCV 16.0 (H) 11.4 - [facility] 13.8 % [facility] LABORATORY MPV 8.9 7.6 - 12.9 [facility] LABORATORY nRBC % Auto 0.0 % [facility] LABORATORY nRBC Abs Auto 0.000 0.000 - [facility] 0.000 [facility] x10(3)/[facility] LABORATORY Specimen Anatomical Collection Method Collection Time Receive d Time (Source) Location / / Volume Laterality Blood specimen 08/07/2017 7:30 AM 018 7:45 (specimen) EST AM EST Resulting Agency Comment Spec In Lab Yonathan Smith MD HEMATOLOGY ORDERABLES Performing Organization Address City/State/[place] [address] (ABNORMAL) Basic Metabolic Panel (non-fasting) (08/07/2017 7:30 AM EST) P athologist Signature Glucose Lvl 80 65 - 199 [facility] mg/dL [facility] LABORATORY Comment: Diabetes: [...] estions. Chloride 99 98 - 107 mmol/L [facility] LABORATORY [...] or in patients with acute kidney failure. http://AdECN/DHnkdep http://AdECN/DHMCnkf Specimen Anatomical Collection Method Collection Time Receive d Time (Source) Location / / Volume Laterality Blood specimen 08/07/2017 7:30 AM 018 7:45 (specimen) EST AM EST Resulting Agency Comment Spec In Lab Yonathan Smith MD CHEMISTRY ORDERABLES Performing Organization Address City/[facility] Phon e Number [address] POCT Glucose (08/07/2017 7:27 AM EST) athologist Signature POC Glucose 81 65 - 199 [facility] mg/dL [facility] LABORATORY Comment: Supplemental ranges: <140 mg/dL before meals <180 mg/dL all other times of the day Specimen Anatomical Collection Method Collection Time Receive d Time (Source) Location / / Volume Laterality Blood specimen 08/07/2017 7:27 AM 018 7:27 (specimen) EST AM EST Yonathan Smith MD POINT OF CARE TEST ORDERABLE S Performing Organization Address [facility] Phon e Number [address] APTT (08/07/2017 7:04 AM EST) athologist Signature PTT 34 25 - 35 sec [facility] LABORATORY Comment: The recommended therapeutic range for fu ll dose, unfractionated heparin at [facility] is 80 ? [...] Smith MD HEMATOLOGY ORDERABLES Performing Organization Address City/[facility]/[place] [address] (ABNORMAL) Prothrombin Time (08/07/2017 7:04 AM EST) athologist Signature PT 17.3 (H) 11.8 - 14.0 [facility] LABORATORY INR 1.4 (H) 0.9 - 1.1 [facility] LABORATORY [...] Organization Address City/State/[place] [address] POCT Glucose (08/07/2017 4:03 AM EST) athologist Signature POC Glucose 93 65 - 199 [facility] mg/dL [facility] LABORATORY Comment: Supplemental ranges: <140 mg/dL before meals <180 mg/dL all other times of the day Specimen Anatomical Collection Method Collection Time Receive d Time (Source) Location / / Volume Laterality Blood specimen 08/07/2017 4:03 AM 018 4:03 (specimen) EST AM EST Yonathan Smith MD POINT OF CARE TEST ORDERABLE S Performing Organization Address City/State/[place] [address] POCT Glucose (08/07/2017 12:04 AM EST) athologist Signature POC Glucose 107 65 - 199 [facility] mg/dL [facility] LABORATORY Comment: Supplemental ranges: <140 mg/dL before meals <180 mg/dL all other times of the day Specimen Anatomical Collection Method Collection Time Receive d Time (Source) Location / / Volume Laterality Blood specimen 08/07/2017 12:04 8 (specimen) AM EST 12:04 AM EST Yonathan Smith MD POINT OF CARE TEST ORDERABLE S Performing Organization Address City/State/ZIP Code Phon e Number [address] POCT Glucose (08/06/2017 7:56 PM EST) P athologist Signature POC Glucose 178 65 - 199 [facility] mg/dL [facility] LABORATORY Comment: Supplemental [...] Address City/State/ZIP Code Phon e Number [address] [id number] (08/06/2017 2:32 PM EST) Component Value Ref Test Analysis Performed At Patholo gist Range Method Time Signature VB Text Department: Vascular Surgery Lab VASCUBASE Report Patient: [id number] (GREGORY HOANG) CPT: [id number] ICD10: I99.8 Referring Physician: YONATHAN SMITH ?? [...] Mcgrath RN) 171 (Given - Provider: Chiquis Mcrgath RN) 40 mg, Oral, EVERY EVENING, First [...] vargas RN) 2024 (Given - Provider: Mira Truogn, RN) 6 mg, Oral, NIGHTLY, First dose [...]
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
--- OUTSIDE RECORDS SUMMARY | 2022-04-27 08:16 | XMS_ITS | Encounter Summary ---
:1945 Author Organization [facility] [place] [address] Care Team Providers Name Role Phone Lovely Vicente MD Primary Care Provider Reason for Visit Auth/Cert Specialty Diagnoses / Procedures Referred By Contact Refer red To Contact Diagnoses Critical lower limb ischemia CELLULITIS RT FOOT Procedures EMERGENCY Referral ID Status Reason Start Date Expiration Date Visits Requ ested Visits Authorized [id number] 1 1 Encounter Details Date Type Department Care Team Description 08/11/2017 Surgery Main Operating Room Yonathan Smith (M SURG) DRESSING CHANGE Barbara Ocampo MD (FOR OTHER THAN IVAN) [facility] UNDER ANES. 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 Patient [...] Dorsalis Pedis (Ankle) Artery ?132 ? 0.94 ??Potter-Biphasic ? Posterior Tibial (Ankle) Artery ??154 ? 1.10 ??Potter-Biphasic ? Fourth Toe ? 67 ?0.48 ?? [...] the foot. Discharge Conditions/Prognosis: Good Discharge to: [facility] Rehab Discharge Medications: Your Medications New [...] For any problems or questions please call [phone] ZELDA Smith, big data solutions architect Nurse Clinician For issues on weeknights after 5pm and weekends please call [phone] and ask for the Vascular Fellow rail transportation operator. General Instructions None Future Appointments and Orders Future Appointments Provider Department Dept Phone 08/26/2017 4:00 PM Aurelia Rivera PA [facility] [place] [phone] 09/07/2017 3:00 PM LAB, THREE L Lab 3L [facility] [phone] 09/07/2017 4:00 PM Luz Prescott MD [facility]ocrinology [facility] [place] [phone] 09/09/2017 8:00 AM Barbra Soares APRN [facility] [place] [phone] Please bring a list of your current [...] For any problems or questions please call [phone] ZELDA Smith, big data solutions architect Nurse Clinician For issues on weeknights after 5pm and weekends please call [phone] and ask for the Vascular Fellow rail transportation operator. documented in this encounter Medications at [...] Discharge Note Patient Destination: [facility] ([facility]) [address] [place] [id number] Transportation: with (at bedside) Time of Discharge: by 12 noon Level of Care: swing Patient Aware: yes Family Notified: yes Md to call report to: Yissel Quintero COMMODITY MANAGEMENT SPECIALIST already called RN to call report to: [phone] Shirin Wolf Office of Care Management Pager [phone] Shirin Wagner RN - 08/16/2017 10:50 AM EST [facility] has offered pt swing bed. Pt and accept bed. will transport via car. COMMODITY MANAGEMENT SPECIALIST Yissel Quintero aware; d/c paperwork will be completed by 12 noon. [facility] requests pt arrival by 1400 today; COMMODITY MANAGEMENT SPECIALIST, RN, and family aware. COMMODITY MANAGEMENT SPECIALIST called [facility] and was told that they prefer pt to arrive with wound vac dressing applied but clamped. COMMODITY MANAGEMENT SPECIALIST applied new wound vac dressing. RN has [facility] number to call report. PASSR completed; COMMODITY MANAGEMENT SPECIALIST paged to request provider signature in highlighted space. Indigo from [facility] notified via email that home wound vac now cancelled; STORES has picked up from room and order cancelled. Packet started and provided to community theater actor. Medicare important message explained to patient, patient signed. Copy provided to patient and signature page to OCM for inclusion in pt EMR. Radha Georges - 08/16/2017 10:34 AM EST Office of Care Management/Horticulture Superintendent Patient Name: Gregory Hoang : 1945 Patient has been offered a swing bed at [facility]. The patient will be transported by private transportation. No MD to MD report necessary Please call Nursing Report to [phone], ask for salt refiner. Info to accompany patient: Narcotic Prescriptions Copies of Medication Administration Records and IV sheets for past 10 days. Plan: Horticulture Superintendent will be available to the patient and Print Press Operator-RN and/or Casting House Laborer for further assistance. Patient will be discharged to: [facility] [address] [place] [address]139 Radha Powers, Horticulture Superintendent Mira Black, VAMSI - 08/15/2017 10:05 PM EST [address] Flores to ask if he wanted to hold metoprolol dose. BP 95/58. OK to hold this dose Courtney Brito - 08/15/2017 3:26 PM EST Office of Care Management(OCM)/Horticulture Superintendent(RS)/ D/C Planning re : Patient is medically ready for d/c today. RS has been in contact with [facility] to see if they could offer a bed. [facility] is still reviewing the case and need their MD to review chart prior to accepting or declining. OCM team needs to check in with [place] tomorrow to check on status. 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 Vac in [...] referral to: [facility] PHONE: [phone] FAX: [phone] CM spoke with RS who said that [...] rehab. Await recommendations from PT. Covering pager #[phone]. 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 Head Tennis Coach Kaitlin Saha, RN Pager #[phone] Payam Rosales - 08/13/2017 2:37 PM EST Special Warfare Combatant Crewman Encounter Note Patient Name: Gregory Hoang : [id number] MR#: [id number] Admit Date: 08/06/2017 1:41 PM Hospital Day 7 days Narrative: Visited to introduce and assess acceptance of Special Warfare Combatant Crewman services. Pt was awake, alert, oriented and in chair and family was there. Assessment:Patient coping positively with stresses of illness/hospitalization at this time. Pt says that he is hoping to get better and his family was there. Pt says that he has family care and supportand taking one day at time. Intervention and Outcome: Provided emotional support and encouraging presence. 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 A letter describing our affiliations was reviewed with them and theywere educated about their right to choose where referrals are placed. Patient requests referral to [facility]. PHONE: [phone] FAX: [phone]. And Home NPWT (Negative Pressure Wound Therapy) aka wound vac device made available to pt. Serial # confirmed. Reviewed [facility] Proof of Delivery/Assignment of Benefits Statement(POD/AOB) Form w patient or authorized agent signing on behalf of patient. Copy of POD/AOB provided to pt and other copy faxed to [employer] @ fax# [phone] Expected date of discharge: 08/12/2017. 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 Heparin gtt continues to run. Pt [...] : 1945 AGE 72 y.o. 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 Vascular resident rail transportation operator and will forward result to the team prior to rounds. 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 Patient [...] MD at [facility] MAIN OR Functional Status/Social Hx: [...] left blue toes with CTA showing R HOME COMPANION pseudoaneurysm (now thrombosed) and occluded ATs bilaterally. [...] 2.5x80 5. Completion RLE angiogram 6. L HOME COMPANION angiogram 7. 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 - L HOME COMPANION angriogram demonstrated: High femoral bifurcation over the proximal half of the femoral head. L HOME COMPANION access in the distal L HOME COMPANION. - Closure device: Mynx Technical Procedure: The [...] for a 45cm 5F Destination. V18 and [place] and QuickCross catheters were used to select [...] 5F. A stationed picture of the L HOME COMPANION was performed as the patient was noted to have a very high bifurcation. Access appeared in the distal R HOME COMPANION. Closure and sheath removal was performed with [...] PM EST 1440 report called to 5 [place] nurse Tessa AGUSTIN documented in this encounter Miscellaneous Notes Plan of Care - Dory Truong RN - 08/16/2017 10:51 AM EST Problem: Patient Care Overview Goal: Plan of Care Review Outcome: Outcome (s) achieved Date Met: 08/16/17 08/14/17 1939 08/16/17 2311 Coping/Psychosocial Plan Of Care Reviewed With -- patient Plan of Care Review Progress improving -- Discussed discharge instructions with pt and pt's spouse. Discharge to [facility]. Goal: Individualization & Mutuality Outcome: Outcome [...] sit/sit to supine -- Bed Mobility Goal, Sharkey Level independent -- Bed Mobility Goal, Date [...] days -- Transfer Training Goal, Activity Type hvi-iz-fslyx/qtzwd-tt-kcs -- Transfer Train Goal, Sharkey Level conditional independence -- Transfer Train Goal, [...] call cabello within reach, Hourly rounding by RN/FILLING CARRIER. Bed alarm / Chair alarm. Patient-specific fall [...] Smith MD - 08/15/2017 6:28 PM EST [facility] Operative Note Patient Name: Gregory Hoang : [id number] MR#: [id number] Case Date: 08/09/2017 Surgeon: Surgeon(s) and Role: [...] 4. Balloon angioplasty of R PT with Elaezar 2.5x80 5. Completion RLE angiogram 6. L HOME COMPANION angiogram 7. Mynx closure Precautions/Restrictions: fall, sternal [...] other (see comments) (or swing bed) Pager: [phone] BASSAM ELIAS, PT 08/14/2017 Inpatient Physical Therapy [...] to Achieve by discharge Gait Training Goal, Sharkey Level conditional independence;set up required Gait Training [...] these facilities over the weekend except for [facility]. CM spoke with [facility] KANWAL Sandhu RN who said that they do not anticipate any beds over the weekend. Reviewed with patient/ that they need to be aware that patient will need to take the first bed offered at the facilities that they make referrals to. Their choices are: 1- [facility] PHONE: [phone] FAX: [phone] 2- [facility] ([facility]) [address] [place] [address] 3- [facility])([facility]) [address] [place] [address] I have discussed Medicare/Private Insurance [...] RS/CM on Wednesday to follow-up. Covering pager #[phone] for today. Plan of Care - Henrique [...] with additional findings of pseudoaneurysm on R HOME COMPANION and bilateral anterior tibial artery occlusions. Was [...] an outpatient once discharged. Have patient call [phone] to set up an appointment. Follow-up: Dermatology will sign-off for now. Please do not hesitate to contact us if you have any questions orconcerns. Impression and Recommendations discussed with primary team on 08/13/2017. 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 S/p OR for R D1-3 TMA & foot debridement on 08/09 and to IR on 07/31 for 1. Left femoral arterial access 2. RLE angiogram 3. Selectivecatheterization of R plantar artery 4. Balloon angioplasty of R PT with Eleazar 2.5x80 5. Completion RLE angiogram 6. L HOME COMPANION angiogram 7. Mynx closure Active Non-Hospital Problems [...] home with home health ([facility] PT&OT) Pager: [phone] YASIR TELLO OT 08/12/2017 Occupational Therapy Rehabilitation [...] 2.5x80 5. Completion RLE angiogram 6. L HOME COMPANION angiogram 7. Mynx closure Past Medical History: [...] with 24/7 assistance and maximal services) Pager: [phone] NICHOLAS MORA, JESSIE 08/12/2017 Physical Therapy Rehabilitation [...] sit/sit to supine -- Bed Mobility Goal, Sharkey Level independent -- Bed Mobility Goal, Outcome Achieved -- goal ongoing Goal: Gait Training Goal Stand Alone Therapy Goal Outcome: Ongoing (Interventions Implemented as Appropriate) 08/11/17 1310 08/12/17 1510 Gait Training Goal Gait Training Goal, Date Established 08/11/17 -- Gait Training Goal, Time to Achieve 5 - 7 days -- Gait Training Goal, Sharkey Level conditional independence -- Gait Training Goal, [...] days -- Transfer Training Goal, Activity Type egm-vz-pfguu/ruigd-ym-hrt -- Transfer Train Goal, Sharkey Level conditional independence -- Transfer Training Goal, [...] Smith MD - 08/11/2017 2:52 PM EST [facility] Operative Note Patient Name: Gregory Hoang : [id number] MR#: [id number] Case Date: 08/11/2017 Surgeon: Surgeon(s) and Role: [...] 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 Completion RLE angiogram 6. L HOME COMPANION angiogram 7. Mynx closure He is very [...] Anticipated Discharge Disposition: inpatient rehabilitation facility Pager: [phone] LAWRENCE GONZALEZ, PT 08/11/2017 Physical Therapy Rehabilitation [...] to sit/sit to supine Bed Mobility Goal, Sharkey Level independent Goal: Gait Training Goal Stand Alone Therapy Goal Outcome: Ongoing (Interventions Implemented as Appropriate) 08/11/17 1310 Gait Training Goal Gait Training Goal, Date Established 08/11/17 Gait Training Goal, Time to Achieve 5 - 7 days Gait Training Goal, Sharkey Level conditional independence Gait Training Goal, Assist [...] 7 days Transfer Training Goal, Activity Type tqe-tg-cxjhl/azdvv-yr-znt Transfer Train Goal, Sharkey Level conditional independence Plan of Care - [...] call cabello within reach, Hourly rounding by RN/FILLING CARRIER. Bed alarm / Chair alarm. ? Patient-specific [...] [facility] 07/20/2017 Anticipated Length Of Stay (If known): Expected Length of Hospitalization: 5-7 days2-3 days Current Decision-Making Capacity: Alert and oriented x 4 Advance Care Planning: on file Kisha Hoang [facility] [phone] Current Coping/Education/Information Needs: pt and spouse state [...] Health/Prescription Coverage: Primary Insurance: MEDICARE Secondary Insurance: [employer] MD Prescription Coverage: See above [facility]erred Pharmacy: [id number] Other: N/A Primary Care Provider: Lovely Vicente MD [phone] Patient/Caregiver Goals of Treatment: Patient plans to [...] of care planning. Kaitlin Saha RN Pager: [phone] Plan of Care - Melba Jaramillo RN [...] Overview Goal: Plan of Care Review 08/08/17 9504 Coping/Psychosocial Plan Of Care Reviewed With patient [...] call cabello within reach, Hourly rounding by RN/FILLING CARRIER. Bed alarm / Chair alarm. Patient-specific fall [...] at bedside and MD TEAM Carrying pager [phone] contacted (via Radio page) and notified of [...] Cardiology Zulma Dolan MD [facility] [place], [place] [address] (Wo rk) 05/28/2022 Laboratory Appointment Lab 05/28/2022 Office Visit Cardiology Zulma Dolan MD [facility] [place] [address] Liz Poole PA [facility] [place] [address] 06/10/2022 Office Visit Dermatology Laura Scherer MD [facility] TEJA [facility], [place] [address] (Wo rk) documented as of [...] 160 65 - 199 [place] mg/dL [facility] LABORATORY Comment: Supplemental ranges: <140 mg/dL before meals <180 mg/dL all other times of the day Specimen Anatomical Collection Method Collection Time Receive d Time (Source) Location / / Volume Laterality Blood specimen 08/16/2017 7:28 AM 018 7:28 (specimen) EST AM EST Yonathan Smith MD POINT OF CARE TEST ORDERABLE S Performing Organization Address City/State/ZIP [place] [address] (ABNORMAL) Differential, Automated (08/16/2017 5:08 AM EST) [facility] Method Time Signature Neutrophils % 73.9 % [facility] LABORATORY Neutr Abs (ANC) 5.37 1.70 - [facility] 6.[address] [facility] x10(3)/[facility] LABORATORY Lymphocytes % 10.1 % [facility] LABORATORY Lymphocytes Abs 0.7 (L) 0.9 - 3.2 [facility] x10(3)/[facility] LABORATORY Monocytes % 10.1 % [facility] LABORATORY Monocyte Abs 0.7 0.3 - 0.9 [facility] x10(3)/[facility] LABORATORY Eosinophils % 5.1 % [facility] LABORATORY Eosinophils Abs 0.4 0.0 - 0.4 [facility] x10(3)/[facility] LABORATORY Basophils % 0.4 % [facility] LABORATORY Basophils Abs 0.0 0.0 - 0.1 [facility] x10(3)/[facility] LABORATORY Immature Gran % 0.40 % [facility] [...] 0.03 0.00 - 0.04 x10(3)/[facility] LABORATORY Specimen Anatomical Collection Method Collection Time Receive d Time (Source) Location / / Volume Laterality Blood specimen 08/16/2017 5:08 AM 018 5:20 (specimen) EST AM EST Resulting Agency Comment Spec In Lab Yonathan Smith MD HEMATOLOGY ORDERABLES Performing Organization Address City/State/ZIP [place] [address] (ABNORMAL) Hemogram (08/16/2017 5:08 AM EST) Analysis Performed At Patho logist Time Signature WBC 7.3 4.0 - 9.5 [place] x10(3)/[facility] LABORATORY RBC 3.36 (L) 4.58 - [place] 5.[address] [facility] x10(6)/[facility] LABORATORY Hemoglobin 9.7 (L) 13.7 - [facility] 16.5 gm/dL [facility] LABORATORY Hematocrit 30.3 (L) 40.5 - [place] 48.5 % [facility] LABORATORY MCV 90.2 82.9 - [facility] RYAN 93.1 [facility] LABORATORY MCH 28.9 27.5 - [place] 32.1 pg [facility] LABORATORY MCHC 32.0 32.0 - [place] 35.7 gm/dL [facility] LABORATORY Platelets 282 145 - 357 [facility] x10(3)/[facility] LABORATORY RDWSD 53.9 (H) 36.0 - [place] 45.0 [facility] LABORATORY RDWCV 16.5 (H) 11.4 - [place] 13.8 % [facility] LABORATORY MPV 9.0 7.6 - 12.9 [place] [facility] LABORATORY nRBC % Auto 0.0 % [facility] LABORATORY nRBC Abs Auto 0.000 0.000 - [place] 0.[address] [facility] x10(3)/[facility] LABORATORY Specimen Anatomical Collection Method Collection Time Receive d Time (Source) Location / / Volume Laterality Blood specimen 08/16/2017 5:08 AM 018 5:20 (specimen) EST AM EST Resulting Agency Comment Spec In Lab Yonathan Smith MD HEMATOLOGY ORDERABLES Performing Organization Address City/State/ZIP Code Phon e Number [place] [id number] (ABNORMAL) Basic Metabolic Panel (non-fasting) (08/16/2017 5:08 AM EST) P athologist Signature Glucose Lvl 141 65 - 199 [facility] mg/dL [facility] [...] or in patients with acute kidney failure. [email or web address] Specimen Anatomical Collection Method Collection Time Receive d Time (Source) Location / / Volume Laterality Blood specimen 08/16/2017 5:08 AM 018 5:20 (specimen) EST AM EST Resulting Agency Comment Spec In Lab Yonathan Smith MD CHEMISTRY ORDERABLES Performing Organization Address City/State/ZIP [place] [address] (ABNORMAL) Prothrombin Time (08/16/2017 [...] City/[facility]/ZIP Code Phon e Number [address] POCT Glucose (08/16/2017 4:09 AM EST) athologist Signature POC Glucose 147 65 - 199 [facility] mg/dL [facility] LAB[facility]ORY Comment: Supplemental ranges: <140 mg/dL before meals <180 mg/dL all other times of the day Specimen Anatomical Collection Method Collection Time Receive d Time (Source) Location / / Volume Laterality Blood specimen 08/16/2017 4:09 AM 018 4:09 (specimen) EST AM EST Yonathan Smith MD POINT OF CARE TEST ORDERABLE S Performing Organization Address City/[facility]/ZIP Code Phon e Number [address] POCT Glucose (08/15/2017 11:56 PM EST) athologist Signature POC Glucose 176 65 - 199 [facility] mg/dL [facility] Comment: Supplemental ranges: <140 mg/dL before meals <180 mg/dL all other times of the day Specimen Anatomical Collection Method Collection Time Receive d Time (Source) Location / / Volume Laterality Blood specimen 08/15/2017 11:56 8 (specimen) PM EST 11:56 PM EST Yonathan Smith MD POINT OF CARE TEST ORDERABLE S Performing Organization Address City/[facility]/ZIP Code Phon e Number [address] POCT Glucose (08/15/2017 8:05 PM EST) athologist Signature POC Glucose 136 65 - 199 [place] mg/dL [facility] LABORATORY Comment: Supplemental ranges: <140 mg/dL before meals <180 mg/dL all other times of the day Specimen Anatomical Collection Method Collection Time Receive d Time (Source) Location / / Volume Laterality Blood specimen 08/15/2017 8:05 PM 018 8:05 (specimen) EST PM EST Yonathan Smith MD POINT OF CARE TEST ORDERABLE S Performing Organization Address City/State/[place] [address] (ABNORMAL) POCT Glucose (08/15/2017 4:50 PM EST) athologist Signature POC Glucose 232 (H) 65 - 199 [facility]/dL [facility] LABORATORY Comment: Supplemental ranges: <140 mg/dL before meals <180 mg/dL all other times of the day Specimen Anatomical Collection Method Collection Time Receive d Time (Source) Location / / Volume Laterality Blood specimen 08/15/2017 4:50 PM 018 4:50 (specimen) EST PM EST Yonathan Smith MD POINT OF CARE TEST ORDERABLE S Performing Organization Address City/State/[place] [address] POCT Glucose (08/15/2017 12:04 PM EST) athologist Signature POC Glucose 135 65 - 199 [place] mg/dL [facility] LABORATORY Comment: Supplemental ranges: <140 mg/dL before meals <180 mg/dL all other times of the day Specimen Anatomical Collection Method Collection Time Receive d Time (Source) Location / / Volume Laterality Blood specimen 08/15/2017 12:04 8 (specimen) PM EST 12:04 PM EST Yonathan Smith MD POINT OF CARE TEST ORDERABLE S Performing Organization Address City/State/[place] [address] POCT Glucose (08/15/2017 7:36 AM EST) P athologist Signature POC Glucose 124 65 - 199 [facility] mg/dL [facility] LABORATORY Comment: Supplemental ranges: <140 mg/dL before meals <180 mg/dL all other times of the day Specimen Anatomical Collection Method Collection Time Receive d Time (Source) Location / / Volume Laterality Blood specimen 08/15/2017 7:36 AM 018 7:36 (specimen) EST AM EST Yonathan Smith MD POINT OF CARE TEST ORDERABLE S Performing Organization Address City/State/ZIP [place] [address] (ABNORMAL) Differential, Automated (08/15/2017 6:22 AM EST) Patholo gist Method Time Signature Neutrophils % 76.1 % [facility] LABORATORY Neutr Abs (ANC) 6.62 (H) 1.70 - [facility] 6.[address] [facility] x10(3)/[facility] L LABORATORY Lymphocytes % 9.3 % [facility] LABORATORY Lymphocytes Abs 0.8 (L) 0.9 - 3.2 [facility] x10(3)/[facility] LABORATORY Monocytes % 9.4 % [facility] LABORATORY Monocyte Abs 0.8 0.3 - 0.9 [facility] x10(3)/[facility] LABORATORY Eosinophils % 4.0 % [facility] LABORATORY Eosinophils Abs 0.4 0.0 - 0.4 [facility] x10(3)/[facility] LABORATORY Basophils % 0.6 % [facility] LABORATORY Basophils Abs 0.0 0.0 - 0.1 [facility] x10(3)/[facility] LABORATORY Immature Gran % 0.60 % [...] Address City/State/ZIP [place] [address] (ABNORMAL) Hemogram (08/15/2017 6:22 AM EST) Analysis Performed At Patho logist Time Signature WBC 8.7 4.0 - 9.5 [facility] x10(3)/[facility] LABORATORY RBC 3.21 (L) 4.58 - [facility] 5.[address] [facility] x10(6)/[facility] LABORATORY Hemoglobin 9.1 (L) 13.7 - [facility] 16.5 gm/dL [facility] LABORATORY Hematocrit 29.0 (L) 40.5 - [facility] 48.5 % [facility] LABORATORY MCV 90.3 82.9 - [facility] 93.1 [facility] LABORATORY MCH 28.3 27.5 - [facility] RYAN 32.1 pg [facility] LABORATORY MCHC 31.4 (L) 32.0 - [facility] 35.7 gm/dL [facility] LABORATORY Platelets 254 145 - 357 [facility] x10(3)/[facility] LABORATORY RDWSD 53.9 (H) 36.0 - [facility] RYAN 45.0 [facility] LABORATORY RDWCV 16.3 (H) 11.4 - [facility] RYAN 13.8 % [facility] LABORATORY MPV 8.8 7.6 - 12.9 [facility] LABORATORY nRBC % Auto 0.0 % [facility] LABORATORY nRBC Abs Auto 0.000 0.000 - [place] 0.[address] [facility] x10(3)/[facility] LABORATORY Specimen Anatomical Collection Method Collection Time Receive d Time (Source) Location / / Volume Laterality Blood specimen 08/15/2017 6:22 AM 018 6:33 (specimen) EST AM EST Resulting Agency Comment Spec In Lab Yonathan Smith MD HEMATOLOGY ORDERABLES Performing Organization Address City/State/ZIP [place] [address] (ABNORMAL) Basic Metabolic Panel (non-fasting) (08/15/2017 6:22 AM EST) P athologist Signature Glucose Lvl 118 65 - 199 [facility] mg/dL [facility] [...] or in patients with acute kidney failure. [email or web address] Specimen Anatomical Collection Method Collection Time Receive d Time (Source) Location / / Volume Laterality Blood specimen 08/15/2017 6:22 AM 018 6:33 (specimen) EST AM EST Resulting Agency Comment Spec In Lab Yonathan Smith MD CHEMISTRY ORDERABLES Performing Organization Address City/State/[place] [address] (ABNORMAL) Prothrombin Time (08/15/2017 [...] City/[facility]/[place]IP [place] [address] POCT Glucose (08/15/2017 4:33 AM EST) athologist Signature POC Glucose 164 65 - 199 [facility] mg/dL [facility] LABORATORY Comment: Supplemental ranges: <140 mg/dL before meals <180 mg/dL all other times of the day Specimen Anatomical Collection Method Collection Time Receive d Time (Source) Location / / Volume Laterality Blood specimen 08/15/2017 4:33 AM 018 4:33 (specimen) EST AM EST Yonathan Smith MD POINT OF CARE TEST ORDERABLE S Performing Organization Address City/State/[place] [address] POCT Glucose (08/15/2017 12:12 AM EST) athologist Signature POC Glucose 89 65 - 199 [facility] mg/dL [facility] LABORATORY Comment: Supplemental ranges: <140 mg/dL before meals <180 mg/dL all other times of the day Specimen Anatomical Collection Method Collection Time Receive d Time (Source) Location / / Volume Laterality Blood specimen 08/15/2017 12:12 8 (specimen) AM EST 12:12 AM EST Yonathan Smtih MD POINT OF CARE TEST ORDERABLE S Performing Organization Address City/State/[place] [address] (ABNORMAL) POCT Glucose (08/14/2017 8:07 PM EST) athologist Signature POC Glucose 204 (H) 65 - 199 [place] [place] mg/dL [facility] LABORATORY Comment: Supplemental ranges: <140 mg/dL before meals <180 mg/dL all other times of the day Specimen Anatomical Collection Method Collection Time Receive d Time (Source) Location / / Volume Laterality Blood specimen 08/14/2017 8:07 PM 018 8:07 (specimen) EST PM EST Yonathan Smith MD POINT OF CARE TEST ORDERABLE S Performing Organization Address City/State/[place] [address] POCT Glucose (08/14/2017 5:11 PM EST) athologist Signature POC Glucose 174 65 - 199 [place] mg/dL [facility] LABORATORY Comment: Supplemental ranges: <140 mg/dL before meals <180 mg/dL all other times of the day Specimen Anatomical Collection Method Collection Time Receive d Time (Source) Location / / Volume Laterality Blood specimen 08/14/2017 5:11 PM 018 5:11 (specimen) EST PM EST Yonathan Smith MD POINT OF CARE TEST ORDERABLE S Performing Organization Address City/State/Z[place] [address] POCT Glucose (08/14/2017 12:10 PM EST) athologist Signature POC Glucose 141 65 - 199 [place] mg/dL [facility] LABORATORY Comment: Supplemental ranges: <140 mg/dL before meals <180 mg/dL all other times of the day Specimen Anatomical Collection Method Collection Time Receive d Time (Source) Location / / Volume Laterality Blood specimen 08/14/2017 12:10 8 (specimen) PM EST 12:10 PM EST Yonathan Smith MD POINT OF CARE TEST ORDERABLE S Performing Organization Address City/State/Z[place] [address] POCT Glucose (08/14/2017 8:07 AM EST) P athologist Signature POC Glucose 158 65 - 199 [facility] mg/dL [facility] LABORATORY Comment: Supplemental ranges: <140 mg/dL before meals <180 mg/dL all other times of the day Specimen Anatomical Collection Method Collection Time Receive d Time (Source) Location / / Volume Laterality Blood specimen 08/14/2017 8:07 AM 018 8:07 (specimen) EST AM EST Yonathan Smith MD POINT OF CARE TEST ORDERABLE S Performing Organization Address City/State/[place] [address] (ABNORMAL) Differential, Automated (08/14/2017 4:52 AM EST) Patholo gist Method Time Signature Neutrophils % 78.6 % [facility] LABORATORY Neutr Abs (ANC) 7.70 (H) 1.70 - [facility] 6.[address] [facility] x10(3)/[facility] L LABORATORY Lymphocytes % 7.8 % [facility] LABORATORY Lymphocytes Abs 0.8 (L) 0.9 - 3.2 [facility] x10(3)/[facility] LABORATORY Monocytes % 8.8 % [facility] LABORATORY Monocyte Abs 0.9 0.3 - 0.9 [facility] x10(3)/[facility] LABORATORY Eosinophils % 4.0 % [facility] LABORATORY Eosinophils Abs 0.4 0.0 - 0.4 [facility] x10(3)/[facility] LABORATORY Basophils % 0.5 % [facility] LABORATORY Basophils Abs 0.0 0.0 - 0.1 [facility] x10(3)/[facility] LABORATORY Immature Gran [...] 0.04 x10(3)/[facility] LABORATORY Specimen Anatomical Collection Method Collection Time Receive d Time (Source) Location / / Volume Laterality Blood specimen 08/14/2017 4:52 AM 018 5:08 (specimen) EST AM EST Resulting Agency Comment Spec In Lab Yonathan Smith MD HEMATOLOGY ORDERABLES Performing Organization Address City/State/ZIP [place] [address] (ABNORMAL) Hemogram (08/14/2017 4:52 AM EST) Analysis Performed At Patho logist Time Signature WBC 9.8 (H) 4.0 - 9.5 [facility] x10(3)/[facility] LABORATORY RBC 3.32 (L) 4.58 - [facility] 5.[address] [facility] x10(6)/[facility] LABORATORY Hemoglobin 9.5 (L) 13.7 - [facility] 16.5 gm/dL [facility] LABORATORY Hematocrit 30.3 (L) 40.5 - [facility] 48.5 % [facility] LABORATORY MCV 91.3 82.9 - [facility] 93.1 [facility] LABORATORY MCH 28.6 27.5 - [facility] RYAN 32.1 pg [facility] LABORATORY MCHC 31.4 (L) 32.0 - [facility] 35.7 gm/dL [facility] LABORATORY Platelets 263 145 - 357 [facility] x10(3)/[facility] LABORATORY RDWSD 54.8 (H) 36.0 - [place] [facility] 45.0 [facility] LABORATORY RDWCV 16.5 (H) 11.4 - [facility] 13.8 % [facility] LABORATORY MPV 9.1 7.6 - 12.9 [facility] LABORATORY nRBC % Auto 0.0 % [facility] LABORATORY nRBC Abs Auto 0.000 0.000 - [facility] 0.[address] [facility] x10(3)/[facility] LABORATORY Specimen Anatomical Collection Method Collection Time Receive d Time (Source) Location / / Volume Laterality Blood specimen 08/14/2017 4:52 AM 018 5:08 (specimen) EST AM EST Resulting Agency Comment Spec In Lab Yonathan Smith MD HEMATOLOGY ORDERABLES Performing Organization Address City/State/ZIP [place] [address] (ABNORMAL) Prothrombin Time (08/14/2017 [...] Address City/State/ZIP [place] [address] (ABNORMAL) Basic Metabolic Panel (non-fasting) (08/14/2017 4:52 AM EST) P athologist Signature Glucose Lvl 135 65 - 199 [facility] mg/dL [facility] [...] or in patients with acute kidney failure. [email or web address] Specimen Anatomical Collection Method Collection Time Receive d Time (Source) Location / / Volume Laterality Blood specimen 08/14/2017 4:52 AM 018 5:08 (specimen) EST AM EST Resulting Agency Comment Spec In Lab Yonathan Smith MD CHEMISTRY ORDERABLES Performing Organization Address City/State/ZIP [place] [address] POCT Glucose (08/14/2017 3:56 AM EST) P athologist Signature POC Glucose 135 65 - 199 [facility] mg/dL [facility] LABORATORY Comment: Supplemental ranges: <140 mg/dL before meals <180 mg/dL all other times of the day Specimen Anatomical Collection Method Collection Time Receive d Time (Source) Location / / Volume Laterality Blood specimen 08/14/2017 3:56 AM 018 3:56 (specimen) EST AM EST Yonathan Smith MD POINT OF CARE TEST ORDERABLE S Performing Organization Address City/State/ZIP Code Phon e Number [address] POCT Glucose (08/13/2017 11:13 PM EST) athologist Signature POC Glucose 118 65 - 199 [facility] mg/dL [facility] LABORATORY Comment: Supplemental ranges: <140 mg/dL before meals <180 mg/dL all other times of the day Specimen Anatomical Collection Method Collection Time Receive d Time (Source) Location / / Volume Laterality Blood specimen 08/13/2017 11:13 8 (specimen) PM EST 11:13 PM EST Yonathan Smith MD POINT OF CARE TEST ORDERABLE S Performing Organization Address City/[facility]/[place]IP [place] [address] (ABNORMAL) POCT Glucose (08/13/2017 8:08 PM EST) athologist Signature POC Glucose 204 (H) 65 - 199 [facility] mg/dL [facility] LABORATORY Comment: Supplemental ranges: <140 mg/dL before meals <180 mg/dL all other times of the day Specimen Anatomical Collection Method Collection Time Receive d Time (Source) Location / / Volume Laterality Blood specimen 08/13/2017 8:08 PM 018 8:08 (specimen) EST PM EST Yonathan Smith MD POINT OF CARE TEST ORDERABLE S Performing Organization Address City/State/[place] [address] POCT Glucose (08/13/2017 4:02 PM EST) athologist Signature POC Glucose 145 65 - 199 [place] mg/dL [facility] LABORATORY Comment: Supplemental ranges: <140 mg/dL before meals <180 mg/dL all other times of the day Specimen Anatomical Collection Method Collection Time Receive d Time (Source) Location / / Volume Laterality Blood specimen 08/13/2017 4:02 PM 018 4:02 (specimen) EST PM EST Yonathan Smith MD POINT OF CARE TEST ORDERABLE S Performing Organization Address City/State/Z[place] [address] POCT Glucose (08/13/2017 11:31 AM EST) athologist Signature POC Glucose 179 65 - 199 [facility] mg/dL [facility] LABORATORY Comment: Supplemental ranges: <140 mg/dL before meals <180 mg/dL all other times of the day Specimen Anatomical Collection Method Collection Time Receive d Time (Source) Location / / Volume Laterality Blood specimen 08/13/2017 11:31 8 (specimen) AM EST 11:31 AM EST Yonathan Smith MD POINT OF CARE TEST ORDERABLE S Performing Organization Address City/[facility]/[place]IP [place] [address] (ABNORMAL) POCT Glucose (08/13/2017 10:16 AM EST) athologist Signature POC Glucose 211 (H) 65 - 199 [facility] mg/dL [facility] LABORATORY Comment: Supplemental ranges: <140 mg/dL before meals <180 mg/dL all other times of the day Specimen Anatomical Collection Method Collection Time Receive d Time (Source) Location / / Volume Laterality Blood specimen 08/13/2017 10:16 8 (specimen) AM EST 10:16 AM EST Yonathan Smith MD POINT OF CARE TEST ORDERABLE S Performing Organization Address City/[facility]/[place] [address] JULIAN, legs, multiple levels (08/13/2017 7:42 AM EST) Component Value Ref Test Analysis Performed At Patholo gist Range Method Time Signature VB Text Department: Vascular Surgery Lab VASCUBASE Report Patient: [id number] (GREGORY HOANG) CPT: 11786 ICD10: I99.8 Referring Physician: YONATHAN SMITH ?? Indications: s/p R 1,2,3 toe amps with red left foot, need n ew baseline Diabetes mellitus: yes ICD10 Diagnosis Code: I99.8 Findings: Right ?Pressure (mm Hg) ?? JULIAN ??Waveform ?TBI ?? Brachial Artery ?138 ? Dorsalis Pedis (Ankle) Arter y ?132 ? 0.94 ??Potter- Biphasic ? Posterior Tibial (Ankle) Art anila ??154 ? 1.10 ??Potter-Biphasic ? Fourth Toe ? 67 ? 0.48 [...] POC Glucose 156 65 - 199 [facility] mg/dL [facility] LABORATORY Comment: Supplemental ranges: <140 mg/dL before meals <180 mg/dL all other times of the day Specimen Anatomical Collection Method Collection Time Receive d Time (Source) Location / / Volume Laterality Blood specimen 08/13/2017 7:33 AM 018 7:33 (specimen) EST AM EST Yonathan Smith MD POINT OF CARE TEST ORDERABLE S Performing Organization Address City/State/ZIP Code Phon e Number [place] [id number] Drive (ABNORMAL) Differential, Automated (08/13/2017 5:33 AM EST) [facility] Method Time Signature Neutrophils % 77.8 % [facility] LABORATORY Neutr Abs (ANC) 7.83 (H) 1.70 - [facility] 6.[address] [facility] x10(3)/[facility] L LABORATORY Lymphocytes % 8.4 % [facility] LABORATORY Lymphocytes Abs 0.8 (L) 0.9 - 3.2 [facility] x10(3)/[facility] LABORATORY Monocytes % 8.3 % [facility] LABORATORY Monocyte Abs 0.8 0.3 - 0.9 [facility] x10(3)/[facility] LABORATORY Eosinophils % 4.6 % [facility] LABORATORY Eosinophils Abs 0.5 (H) 0.0 - 0.4 [facility] x10(3)/[facility] LABORATORY Basophils % 0.5 % [facility] LABORATORY Basophils Abs 0.0 0.0 - 0.1 [facility] x10(3)/[facility] LABORATORY Immature Gran [...] 0.04 0.00 - 0.04 x10(3)/[facility]L [facility] LABORATORY Specimen Anatomical Collection Method Collection Time Receive d Time (Source) Location / / Volume Laterality Blood specimen 08/13/2017 5:33 AM 018 6:04 (specimen) EST AM EST Resulting Agency Comment Spec In Lab Yonathan Smith MD HEMATOLOGY ORDERABLES Performing Organization Address City/State/ZIP [place] [address] (ABNORMAL) Hemogram (08/13/2017 5:33 AM EST) Analysis Performed At Patho logist Time Signature WBC 10.1 (H) 4.0 - 9.5 [facility] x10(3)/[facility] LABORATORY RBC 3.21 (L) 4.58 - [facility] 5.[address] [facility] x10(6)/[facility] LABORATORY Hemoglobin 9.2 (L) 13.7 - [facility] 16.5 gm/dL [facility] LABORATORY Hematocrit 29.6 (L) 40.5 - [facility] 48.5 % [facility] LABORATORY MCV 92.2 82.9 - [facility] 93.1 [facility] LABORATORY MCH 28.7 27.5 - [facility] 32.1 pg [facility] LABORATORY MCHC 31.1 (L) 32.0 - [facility] 35.7 gm/dL [facility] LABORATORY Platelets 263 145 - 357 [facility] x10(3)/[facility] LABORATORY RDWSD 54.8 (H) 36.0 - [facility] 45.0 [facility] LABORATORY RDWCV 16.4 (H) 11.4 - [facility] 13.8 % [facility] LABORATORY MPV 9.2 7.6 - 12.9 [facility] LABORATORY nRBC % Auto 0.0 % [facility] LABORATORY nRBC Abs Auto 0.000 0.000 - [facility] 0.[address] [facility] x10(3)/[facility] LABORATORY Specimen Anatomical Collection Method Collection Time Receive d Time (Source) Location / / Volume Laterality Blood specimen 08/13/2017 5:33 AM 018 6:04 (specimen) EST AM EST Resulting Agency Comment Spec In Lab Yonathan Smith MD HEMATOLOGY ORDERABLES Performing Organization Address City/State/ZIP [place] [address] (ABNORMAL) Prothrombin Time (08/13/2017 [...] Address City/State/Z[place] [address] (ABNORMAL) Basic Metabolic Panel (non-fasting) (08/13/2017 5:33 AM EST) athologist Signature Glucose Lvl 126 65 - 199 [facility] mg/dL [facility] [...] LABORATORY Estimated GFR >60 >=60 [facility] LABORATORY Comment: The reported eGFR should be multiplied b y 1.2 for patients. The MDRD is not an appropriate measure o f renal function for patients with body mass extremes or in patients with acute kidney failure. [email or web address] Specimen Anatomical Collection Method Collection Time Receive d Time (Source) Location / / Volume Laterality Blood specimen 08/13/2017 5:33 AM 018 6:04 (specimen) EST AM EST Resulting Agency Comment Spec In Lab Yonathan Smith MD CHEMISTRY ORDERABLES Performing Organization Address City/[facility]/ZIP Code Phon e Number [address] POCT Glucose (08/13/2017 4:29 AM EST) athologist Signature POC Glucose 111 65 - 199 [facility] mg/dL [facility] LABORATORY Comment: Supplemental ranges: <140 mg/dL before meals <180 mg/dL all other times of the day Specimen Anatomical Collection Method Collection Time Receive d Time (Source) Location / / Volume Laterality Blood specimen 08/13/2017 4:29 AM 018 4:29 (specimen) EST AM EST Yonathan Smith MD POINT OF CARE TEST ORDERABLE S Performing Organization Address City/[facility]/ZIP Code Phon e Number [address] [address] POCT Glucose (08/12/2017 11:28 PM EST) athologist Signature POC Glucose 164 65 - 199 [facility] mg/dL [facility] LABORATORY Comment: Supplemental ranges: <140 mg/dL before meals <180 mg/dL all other times of the day Specimen Anatomical Collection Method Collection Time Receive d Time (Source) Location / / Volume Laterality Blood specimen 08/12/2017 11:28 8 (specimen) PM EST 11:28 PM EST Yonathan Smith MD POINT OF CARE TEST ORDERABLE S Performing Organization Address City/[facility]/[place]IP [place] [address] (ABNORMAL) POCT Glucose (08/12/2017 7:40 PM EST) athologist Signature POC Glucose 209 (H) 65 - 199 [place] mg/dL [facility] LABORATORY Comment: Supplemental ranges: <140 mg/dL before meals <180 mg/dL all other times of the day Specimen Anatomical Collection Method Collection Time Receive d Time (Source) Location / / Volume Laterality Blood specimen 08/12/2017 7:40 PM 018 7:40 (specimen) EST PM EST Yonathan Smith MD POINT OF CARE TEST ORDERABLE S Performing Organization Address City/State/ZIP Code Phon e Number [address] POCT Glucose (08/12/2017 4:24 PM EST) athologist Signature POC Glucose 161 65 - 199 [facility] RYAN mg/dL [facility] LABORATORY Comment: Supplemental ranges: <140 mg/dL before meals <180 mg/dL all other times of the day Specimen Anatomical Collection Method Collection Time Receive d Time (Source) Location / / Volume Laterality Blood specimen 08/12/2017 4:24 PM 018 4:24 (specimen) EST PM EST Yonathan Smith MD POINT OF CARE TEST ORDERABLE S Performing Organization Address City/State/[place] [address] POCT Glucose (08/12/2017 12:00 PM EST) athologist Signature POC Glucose 167 65 - 199 [place] ZHAORY[place] mg/dL [facility] LABORATORY Comment: Supplemental ranges: <140 mg/dL before meals <180 mg/dL all other times of the day Specimen Anatomical Collection Method Collection Time Receive d Time (Source) Location / / Volume Laterality Blood specimen 08/12/2017 12:00 8 (specimen) PM EST 12:00 PM EST Yonathan Smith MD POINT OF CARE TEST ORDERABLE S Performing Organization Address City/State/[place] [address] POCT Glucose (08/12/2017 7:25 AM EST) P athologist Signature POC Glucose 152 65 - 199 [facility] mg/dL [facility] LABORATORY Comment: Supplemental ranges: <140 mg/dL before meals <180 mg/dL all other times of the day Specimen Anatomical Collection Method Collection Time Receive d Time (Source) Location / / Volume Laterality Blood specimen 08/12/2017 7:25 AM 018 7:25 (specimen) EST AM EST Yonathan Smith MD POINT OF CARE TEST ORDERABLE S Performing Organization Address City/State/ZIP Code Phon e Number [place] [id number] (ABNORMAL) Differential, Automated (08/12/2017 6:29 AM EST) Patholo gist Method Time Signature Neutrophils % 78.7 % [facility] LABORATORY Neutr Abs (ANC) 7.94 (H) 1.70 - [facility] 6.[address] [facility] x10(3)/[facility] LABORATORY Lymphocytes % 8.8 % [facility] LABORATORY Lymphocytes Abs 0.9 0.9 - 3.2 [facility] x10(3)/[facility] LABORATORY Monocytes % 7.8 % [facility] LABORATORY Monocyte Abs 0.8 0.3 - 0.9 [facility] x10(3)/[facility] LABORATORY Eosinophils % 3.9 % [facility] LABORATORY Eosinophils Abs 0.4 0.0 - 0.4 [facility] x10(3)/[facility] LABORATORY Basophils % 0.3 % [facility] LABORATORY Basophils Abs 0.0 0.0 - 0.1 [facility] x10(3)/[facility] LABORATORY Immature Gran % 0.50 % [...] Address City/State/ZIP [place] [address] (ABNORMAL) Hemogram (08/12/2017 6:29 AM EST) Analysis Performed At Patho logist Time Signature WBC 10.1 (H) 4.0 - 9.5 [facility] x10(3)/[facility] LABORATORY RBC 3.02 (L) 4.58 - [facility] [address] [facility] x10(6)/[facility] LABORATORY Hemoglobin 8.7 (L) 13.7 - [facility] 16.5 gm/dL [facility] LABORATORY Hematocrit 28.1 (L) 40.5 - [facility] 48.5 % [facility] LABORATORY MCV 93.0 82.9 - [facility] 93.1 [facility] LABORATORY MCH 28.8 27.5 - [facility] 32.1 pg [facility] LABORATORY MCHC 31.0 (L) 32.0 - [facility] 35.7 gm/dL [facility] LABORATORY Platelets 223 145 - 357 [facility] x10(3)/[facility] LABORATORY RDWSD 56.1 (H) 36.0 - [facility] RYAN 45.0 [facility] LABORATORY RDWCV 16.4 (H) 11.4 - [facility] R[facility]AN 13.8 % [facility] LABORATORY MPV 9.0 7.6 - 12.9 [facility] LABORATORY nRBC % Auto 0.0 % [facility] LABORATORY nRBC Abs Auto 0.000 0.000 - [place] RYAN 0.[address] [facility] x10(3)/[facility] LABORATORY Specimen Anatomical Collection Method Collection Time Receive d Time (Source) Location / / Volume Laterality Blood specimen 08/12/2017 6:29 AM 018 6:38 (specimen) EST AM EST Resulting Agency Comment Spec In Lab Yonathan Smith MD HEMATOLOGY ORDERABLES Performing Organization Address City/[facility]/[place] [address] (ABNORMAL) Prothrombin Time (08/12/2017 [...] [place] [address] (ABNORMAL) Basic Metabolic Panel (non-fasting) (08/12/2017 6:29 AM EST) athologist Signature Glucose Lvl 151 65 - 199 [facility] mg/dL [facility] [...] or in patients with acute kidney failure. [email or web address] Specimen Anatomical Collection Method Collection Time Receive d Time (Source) Location / / Volume Laterality Blood specimen 08/12/2017 6:29 AM 018 6:38 (specimen) EST AM EST Resulting Agency Comment Spec In Lab Yonathan Smith MD CHEMISTRY ORDERABLES Performing Organization Address City/[facility]/[place]IP [place] [address] POCT Glucose (08/12/2017 4:08 AM EST) athologist Signature POC Glucose 181 65 - 199 [facility] mg/dL [facility] LABORATORY Comment: Supplemental ranges: <140 mg/dL before meals <180 mg/dL all other times of the day Specimen Anatomical Collection Method Collection Time Receive d Time (Source) Location / / Volume Laterality Blood specimen 08/12/2017 4:08 AM 018 4:08 (specimen) EST AM EST Yonathan Smith MD POINT OF CARE TEST ORDERABLE S Performing Organization Address City/[facility]/[place] [address] (ABNORMAL) POCT Glucose (08/12/2017 12:17 AM EST) athologist Signature POC Glucose 221 (H) 65 - 199 [facility] mg/dL [facility] LABORATORY Comment: Supplemental ranges: <140 mg/dL before meals <180 mg/dL all other times of the day Specimen Anatomical Collection Method Collection Time Receive d Time (Source) Location / / Volume Laterality Blood specimen 08/12/2017 12:17 8 (specimen) AM EST 12:17 AM EST Yonathan Smith MD POINT OF CARE TEST ORDERABLE S Performing Organization Address City/[facility]/[place] [address] (ABNORMAL) POCT Glucose (08/11/2017 8:52 PM EST) athologist Signature POC Glucose 221 (H) 65 - 199 [place] mg/dL [facility] LABORATORY Comment: Supplemental ranges: <140 mg/dL before meals <180 mg/dL all other times of the day Specimen Anatomical Collection Method Collection Time Receive d Time (Source) Location / / Volume Laterality Blood specimen 08/11/2017 8:52 PM 018 8:52 (specimen) EST PM EST Yonathan Smith MD POINT OF CARE TEST ORDERABLE S Performing Organization Address City/[facility]/[place] [address] POCT Glucose (08/11/2017 5:59 PM EST) athologist Signature POC Glucose 169 65 - 199 [place] RY[place] mg/dL [facility] LABORATORY Comment: Supplemental ranges: <140 mg/dL before meals <180 mg/dL all other times of the day Specimen Anatomical Collection Method Collection Time Receive d Time (Source) Location / / Volume Laterality Blood specimen 08/11/2017 5:59 PM 018 5:59 (specimen) EST PM EST Yonathan Smith MD POINT OF CARE TEST ORDERABLE S Performing Organization Address City/State/[place] [address] (ABNORMAL) POCT Glucose (08/11/2017 4:08 PM EST) athologist Signature POC Glucose 240 (H) 65 - 199 [place] RY[place] mg/dL [facility] LABORATORY Comment: Supplemental ranges: <140 mg/dL before meals <180 mg/dL all other times of the day Specimen Anatomical Collection Method Collection Time Receive d Time (Source) Location / / Volume Laterality Blood specimen 08/11/2017 4:08 PM 018 4:08 (specimen) EST PM EST Yonathan Smith MD POINT OF CARE TEST ORDERABLE S Performing Organization Address City/[facility]/ZIP Code Phon e Number [address] POCT Glucose (08/11/2017 12:04 PM EST) athologist Signature POC Glucose 182 65 - 199 [facility] mg/dL [facility] LABORATORY Comment: Supplemental ranges: <140 mg/dL before meals <180 mg/dL all other times of the day Specimen Anatomical Collection Method Collection Time Receive d Time (Source) Location / / Volume Laterality Blood specimen 08/11/2017 12:04 8 (specimen) PM EST 12:04 PM EST Yonathan Smith MD POINT OF CARE TEST ORDERABLE S Performing Organization Address City/[facility]/ZIP Code Phon e Number [address] POCT Glucose (08/11/2017 7:31 AM EST) athologist Signature POC Glucose 156 65 - 199 [facility] mg/dL [facility] LABORATORY Comment: Supplemental ranges: <140 mg/dL before meals <180 mg/dL all other times of the day Specimen Anatomical Collection Method Collection Time Receive d Time (Source) Location / / Volume Laterality Blood specimen 08/11/2017 7:31 AM 018 7:31 (specimen) EST AM EST Yonathan Smith MD POINT OF CARE TEST ORDERABLE S Performing Organization Address City/[facility]/ZIP Code Phon e Number [address] (ABNORMAL) Differential, Automated (08/11/2017 6:16 AM EST) [facility] Time Signature Neutrophils % 83.7 % [facility] LABORATORY Neutr Abs (ANC) 10.76 (H) 1.70 - [facility] [address] [facility] x10(3)/[facility] L LABORATORY Lymphocytes % 6.0 % [facility] LABORATORY Lymphocytes Abs 0.8 (L) 0.9 - 3.2 [facility] x10(3)/[facility] LABORATORY Monocytes % 7.5 % [facility] LABORATORY Monocyte Abs 1.0 (H) 0.3 - 0.9 [facility] x10(3)/[facility] LABORATORY Eosinophils % 2.0 % [facility] LABORATORY Eosinophils Abs 0.3 0.0 - 0.4 [facility] x10(3)/[facility] LABORATORY Basophils % 0.3 % [facility] LABORATORY Basophils Abs 0.0 0.0 - 0.1 [facility] x10(3)/[facility] LABORATORY Immature Gran % 0.50 % [...] Address City/State/ZIP [place] [address] (ABNORMAL) Hemogram (08/11/2017 6:16 AM EST) Analysis Performed At Patho logist Time Signature WBC 12.9 (H) 4.0 - 9.5 [facility] x10(3)/[facility] LABORATORY RBC 3.28 (L) 4.58 - [facility] [address] [facility] x10(6)/[facility] LABORATORY Hemoglobin 9.5 (L) 13.7 - [place] R[place] 16.5 gm/dL [facility] LABORATORY Hematocrit 29.8 (L) 40.5 - [place] DAV[place] 48.5 % [facility] LABORATORY MCV 90.9 82.9 - [facility] RYAN 93.1 [facility] LABORATORY MCH 29.0 27.5 - [place] OLIVASCK 32.1 pg [facility] LABORATORY MCHC 31.9 (L) 32.0 - [place] DAVIS 35.7 gm/dL [facility] LABORATORY Platelets 236 145 - 357 [facility] x10(3)/[facility] LABORATORY RDWSD 53.5 (H) 36.0 - [place] DAVIS 45.0 [facility] LABORATORY RDWCV 16.3 (H) 11.4 - [facility] RYAN 13.8 % [facility] LABORATORY MPV 8.8 7.6 - 12.9 [facility] LABORATORY nRBC % Auto 0.0 % [facility] LABORATORY nRBC Abs Auto 0.000 0.000 - [facility] RYAN 0.[address] [facility] x10(3)/[facility] LABORATORY Specimen Anatomical Collection Method Collection Time Receive d Time (Source) Location / / Volume Laterality Blood specimen 08/11/2017 6:16 AM 018 6:24 (specimen) EST AM EST Resulting Agency Comment Spec In Lab Yonathan Smith MD HEMATOLOGY ORDERABLES Performing Organization Address City/State/ZIP [place] [address] (ABNORMAL) Prothrombin Time (08/11/2017 [...] Address City/State/ZIP [place] [address] Basic Metabolic Panel (non-fasting) (08/11/2017 6:16 AM EST) P athologist Signature Glucose Lvl 139 65 - 199 [facility] mg/dL [facility] [...] or in patients with acute kidney failure. [email or web address] Specimen Anatomical Collection Method Collection Time Receive d Time (Source) Location / / Volume Laterality Blood specimen 08/11/2017 6:16 AM 018 6:24 (specimen) EST AM EST Resulting Agency Comment Spec In Lab Yonathan Smith MD CHEMISTRY ORDERABLES Performing Organization Address City/State/ZIP Code Phon e Number [address] POCT Glucose (08/11/2017 4:07 AM EST) athologist Signature POC Glucose 162 65 - 199 [place] RY[place] mg/dL [facility] LABORATORY Comment: Supplemental ranges: <140 mg/dL before meals <180 mg/dL all other times of the day Specimen Anatomical Collection Method Collection Time Receive d Time (Source) Location / / Volume Laterality Blood specimen 08/11/2017 4:07 AM 018 4:07 (specimen) EST AM EST Yonathan Smith MD POINT OF CARE TEST ORDERABLE S Performing Organization Address City/[facility]/ZIP Code Phon e Number [address] POCT Glucose (08/10/2017 11:59 PM EST) athologist Signature POC Glucose 166 65 - 199 [place] mg/dL [facility] LABORATORY Comment: Supplemental ranges: <140 mg/dL before meals <180 mg/dL all other times of the day Specimen Anatomical Collection Method Collection Time Receive d Time (Source) Location / / Volume Laterality Blood specimen 08/10/2017 11:59 8 (specimen) PM EST 11:59 PM EST Yonathan Smith MD POINT OF CARE TEST ORDERABLE S Performing Organization Address City/State/ZIP Code Phon e Number [address] POCT Glucose (08/10/2017 8:12 PM EST) athologist Signature POC Glucose 156 65 - 199 [place] mg/dL [facility] LABORATORY Comment: Supplemental ranges: <140 mg/dL before meals <180 mg/dL all other times of the day Specimen Anatomical Collection Method Collection Time Receive d Time (Source) Location / / Volume Laterality Blood specimen 08/10/2017 8:12 PM 018 8:12 (specimen) EST PM EST Yonathan Smith MD POINT OF CARE TEST ORDERABLE S Performing Organization Address City/State/ZIP Code Phon e Number [place] [id number]OS[address] Drive (ABNORMAL) POCT Glucose (08/10/2017 4:42 PM EST) P athologist Signature POC Glucose 211 (H) 65 - 199 [facility] mg/dL [facility] LABORATORY Comment: Supplemental ranges: <140 mg/dL before meals <180 mg/dL all other times of the day Specimen Anatomical Collection Method Collection Time Receive d Time (Source) Location / / Volume Laterality Blood specimen 08/10/2017 4:42 PM 018 4:42 (specimen) EST PM EST Yonathan Smith MD POINT OF CARE TEST ORDERABLE S Performing Organization Address City/State/ZIP Code Phon e Number [address] (ABNORMAL) Differential, Automated (08/10/2017 2:30 PM EST) Patholo gist Method Time Signature Neutrophils % 87.6 % [facility] LABORATORY Neutr Abs (ANC) 9.90 (H) 1.70 - [facility] 6.[address] [facility] x10(3)/[facility] L LABORATORY Lymphocytes % 4.3 % [facility] LABORATORY Lymphocytes Abs 0.5 (L) 0.9 - 3.2 [facility] x10(3)/[facility] LABORATORY Monocytes % 6.0 % [facility] LABORATORY Monocyte Abs 0.7 0.3 - 0.9 [facility] x10(3)/[facility] LABORATORY Eosinophils % 1.1 % [facility] LABORATORY Eosinophils Abs 0.1 0.0 - 0.4 [facility] x10(3)/[facility] LABORATORY Basophils % 0.4 % [facility] LABORATORY Basophils Abs 0.0 0.0 - 0.1 [facility] x10(3)/[facility] LABORATORY Immature Gran % 0.60 % [...] Address City/State/ZIP [place] [address] (ABNORMAL) Hemogram (08/10/2017 2:30 PM EST) Analysis Performed At Patho logist Time Signature WBC 11.3 (H) 4.0 - 9.5 [facility] x10(3)/[facility] LABORATORY RBC 3.13 (L) 4.58 - [facility] 5.[address] [facility] x10(6)/[facility] LABORATORY Hemoglobin 8.9 (L) 13.7 - [facility] 16.5 gm/dL [facility] LABORATORY Hematocrit 28.4 (L) 40.5 - [facility] 48.5 % [facility] LABORATORY MCV 90.7 82.9 - [facility] 93.1 [facility] LABORATORY MCH 28.4 27.5 - [facility] 32.1 pg [facility] LABORATORY MCHC 31.3 (L) 32.0 - [facility] 35.7 gm/dL [facility] LABORATORY Platelets 213 145 - 357 [facility] x10(3)/[facility] LABORATORY RDWSD 53.7 (H) 36.0 - [facility] RYAN 45.0 [facility] LABORATORY RDWCV 16.4 (H) 11.4 - [facility] RYAN 13.8 % [facility] LABORATORY MPV 8.9 7.6 - 12.9 [facility] LABORATORY nRBC % Auto 0.0 % [facility] LABORATORY nRBC Abs Auto 0.000 0.000 - [facility] [employer] 0.[address] [facility] x10(3)/[facility] LABORATORY Specimen Anatomical Collection Method Collection Time Receive d Time (Source) Location / / Volume Laterality Blood specimen 08/10/2017 2:30 PM 018 2:48 (specimen) EST PM EST Resulting Agency Comment Spec In Lab Yonathan Smith MD HEMATOLOGY ORDERABLES Performing Organization Address City/[facility]/ZIP Code Phon e Number [address] (ABNORMAL) POCT Glucose (08/10/2017 1:50 PM EST) athologist Signature POC Glucose 243 (H) 65 - 199 [facility] mg/dL [facility] LABORATORY Comment: Supplemental ranges: <140 mg/dL before meals <180 mg/dL all other times of the day Specimen Anatomical Collection Method Collection Time Receive d Time (Source) Location / / Volume Laterality Blood specimen 08/10/2017 1:50 PM 018 1:50 (specimen) EST PM EST Yonathan Smith MD POINT OF CARE TEST ORDERABLE S Performing Organization Address City/[facility]/ZIP Code Phon e Number [address] POCT Glucose (08/10/2017 11:21 AM EST) athologist Signature POC Glucose 156 65 - 199 [facility] mg/dL [facility] LABORATORY Comment: Supplemental ranges: <140 mg/dL before meals <180 mg/dL all other times of the day Specimen Anatomical Collection Method Collection Time Receive d Time (Source) Location / / Volume Laterality Blood specimen 08/10/2017 11:21 8 (specimen) AM EST 11:21 AM EST Yonathan Smith MD POINT OF CARE TEST ORDERABLE S Performing Organization Address City/[facility]/ZIP Code Phon e Number [address] (ABNORMAL) Differential, Automated (08/10/2017 10:28 AM EST) [facility] Method Time Signature Neutrophils % 85.3 % [facility] LABORATORY Neutr Abs (ANC) 9.43 (H) 1.70 - [facility] 6.[address] [facility] x10(3)/[facility] L LABORATORY Lymphocytes % 5.5 % [facility] LABORATORY Lymphocytes Abs 0.6 (L) 0.9 - 3.2 [facility] x10(3)/[facility] LABORATORY Monocytes % 5.9 % [facility] LABORATORY Monocyte Abs 0.6 0.3 - 0.9 [facility] x10(3)/[facility] LABORATORY Eosinophils % 2.1 % [facility] LABORATORY Eosinophils Abs 0.2 0.0 - 0.4 [facility] x10(3)/[facility] LABORATORY Basophils % 0.4 % [facility] LABORATORY Basophils Abs 0.0 0.0 - 0.1 [facility] x10(3)/[facility] LABORATORY Immature Gran % 0.80 % [...] Address City/State/ZIP [place] [address] (ABNORMAL) Hemogram (08/10/2017 10:28 AM EST) Analysis Performed At Patho logist Time Signature WBC 11.0 (H) 4.0 - 9.5 [facility] x10(3)/[facility] LABORATORY RBC 3.02 (L) 4.58 - [facility] 5.[address] [facility] x10(6)/[facility] LABORATORY Hemoglobin 8.8 (L) 13.7 - [facility] 16.5 gm/dL [facility] LABORATORY Hematocrit 28.1 (L) 40.5 - [facility] 48.5 % [facility] LABORATORY MCV 93.0 82.9 - [facility] DAV[facility] 93.1 [facility] LABORATORY MCH 29.1 27.5 - [facility] OLIVASCK 32.1 pg [facility] LABORATORY MCHC 31.3 (L) 32.0 - [facility] DAVIS 35.7 gm/dL [facility] LABORATORY Platelets 207 145 - 357 [facility] ZHAORY[facility] x10(3)/[facility] LABORATORY RDWSD 55.3 (H) 36.0 - [place] DAVIS 45.0 [facility] LABORATORY RDWCV 16.4 (H) 11.4 - [place] RYAN 13.8 % [facility] LABORATORY MPV 9.0 7.6 - 12.9 [facility] [facility] LABORATORY nRBC % Auto 0.0 % [facility] [place]RBC Abs Auto 0.000 0.000 - BARBARA DAVIS 0.[address] [facility] x10(3)/[facility] LABORATORY Specimen Anatomical Collection Method Collection Time Receive d Time (Source) Location / / Volume Laterality Blood specimen 08/10/2017 10:28 8 (specimen) AM EST 10:35 AM EST Resulting Agency Comment Spec In Lab Yonathan Smith MD HEMATOLOGY ORDERABLES Performing Organization Address City/State/ZIP [place] [address] VS Angiogram/intervention (vascular) (08/10/2017 [...] 2.5x80 5. Completion RLE angiogram 6. L HOME COMPANION angiogram 7. 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 L HOME COMPANION access in the distal L HOME COMPANION. - Closure device: Mynx Technical Procedure: ?The [...] for a 45cm 5F Destination. V18 and [place] a nd QuickCross catheters were used to [...] bifurcation. Access appeared in the distal R HOME COMPANION. Closure and sheath removal was performed with [...] 2.5x80 5. Completion RLE angiogram 6. L HOME COMPANION angiogram 7. 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 L HOME COMPANION access in the distal L HOME COMPANION. - Closure device: Mynx Technical Procedure: The [...] for a 45cm 5F Destination. V18 and [place] a nd QuickCross catheters were used to [...] bifurcation. Access appeared in the distal R HOME COMPANION. Closure and sheath removal was performed with [...] (ABNORMAL) Differential, Automated (08/10/2017 5:50 AM EST) [facility] Method Time Signature Neutrophils % 80.1 % [facility] LABORATORY Neutr Abs (ANC) 9.01 (H) 1.70 - [facility] 6.[address] [facility] x10(3)/[facility] LABORATORY Lymphocytes % 8.8 % [facility] LABORATORY Lymphocytes Abs 1.0 0.9 - 3.2 [facility] x10(3)/[facility] LABORATORY Monocytes % 8.3 % [facility] LABORATORY Monocyte Abs 0.9 0.3 - 0.9 [facility] x10(3)/[facility] LABORATORY Eosinophils % 2.0 % [facility] LABORATORY Eosinophils Abs 0.2 0.0 - 0.4 [facility] x10(3)/[facility] LABORATORY Basophils % 0.4 % [facility] LABORATORY Basophils Abs 0.0 0.0 - 0.1 [facility] x10(3)/[facility] LABORATORY Immature Gran [...] [place] [address] (ABNORMAL) Hemogram (08/10/2017 5:50 AM EST) Analysis Performed At Patho logist Time Signature WBC 11.3 (H) 4.0 - 9.5 [facility] x10(3)/[facility] LABORATORY RBC 3.15 (L) 4.58 - BARBARA RYAN 5.[address] [facility] x10(6)/[facility] LABORATORY Hemoglobin 8.9 (L) 13.7 - [facility] 16.5 gm/dL [facility] LABORATORY Hematocrit 29.0 (L) 40.5 - [facility] RYAN 48.5 % [facility] LABORATORY MCV 92.1 82.9 - [facility] RYAN 93.1 [facility] LABORATORY MCH 28.3 27.5 - [facility] RYAN 32.1 pg [facility] LABORATORY MCHC 30.7 (L) 32.0 - [facility] RYAN 35.7 gm/dL [facility] LABORATORY Platelets 231 145 - 357 [facility] x10(3[facility] RDWSD 53.9 (H) 36.0 - [facility] RYAN 45.0 [facility] LABORATORY RDWCV 16.2 (H) 11.4 - [facility] RYAN 13.8 % [facility] LABORATORY MPV 8.7 7.6 - 12.9 [facility] LABORATORY nRBC % Auto 0.0 % [facility] LABORATORY nRBC Abs Auto 0.000 0.000 - [facility] 0.[address] [facility] x10(3)/[facility] LABORATORY Specimen Anatomical Collection Method Collection Time Receive d Time (Source) Location / / Volume Laterality Blood specimen 08/10/2017 5:50 AM 018 5:59 (specimen) EST AM EST Resulting Agency Comment Spec In Lab Yonathan Smith MD HEMATOLOGY ORDERABLES Performing Organization Address City/State/ZIP [place] [address] (ABNORMAL) Basic Metabolic Panel (non-fasting) (08/10/2017 5:50 AM EST) P athologist Signature Glucose Lvl 135 65 - 199 [facility] mg/dL [facility] [...] or in patients with acute kidney failure. [email or web address] Specimen Anatomical Collection Method Collection Time Receive d Time (Source) Location / / Volume Laterality Blood specimen 08/10/2017 5:50 AM 018 5:59 (specimen) EST AM EST Resulting Agency Comment Spec In Lab Yonathan Smith MD CHEMISTRY ORDERABLES Performing Organization Address [facility] [place] [address] (ABNORMAL) Prothrombin Time (08/10/2017 [...] HEMATOLOGY ORDERABLES Performing Organization Address City/[facility] [place] [address] (ABNORMAL) POCT Glucose (08/10/2017 4:01 AM EST) athologist Signature POC Glucose 206 (H) 65 - 199 [facility] mg/dL [facility] LABORATORY Comment: Supplemental ranges: <140 mg/dL before meals <180 mg/dL all other times of the day Specimen Anatomical Collection Method Collection Time Receive d Time (Source) Location / / Volume Laterality Blood specimen 08/10/2017 4:01 AM 018 4:01 (specimen) EST AM EST Yonathan Smith MD POINT OF CARE TEST ORDERABLE S Performing Organization Address City/State/ZIP Code Phon e Number [address] POCT Glucose (08/10/2017 2:01 AM EST) athologist Signature POC Glucose 188 65 - 199 [place] ZHAORYAN mg/dL [facility] LABORATORY Comment: Supplemental ranges: <140 mg/dL before meals <180 mg/dL all other times of the day Specimen Anatomical Collection Method Collection Time Receive d Time (Source) Location / / Volume Laterality Blood specimen 08/10/2017 2:01 AM 018 2:01 (specimen) EST AM EST Yonathan Smith MD POINT OF CARE TEST ORDERABLE S Performing Organization Address City/[facility]/[place] [address] (ABNORMAL) POCT Glucose (08/09/2017 11:42 PM EST) athologist Signature POC Glucose 283 (H) 65 - 199 BARBARA ZHAORYAN mg/dL [facility] LABORATORY Comment: Supplemental ranges: <140 mg/dL before meals <180 mg/dL all other times of the day Specimen Anatomical Collection Method Collection Time Receive d Time (Source) Location / / Volume Laterality Blood specimen 08/09/2017 11:42 8 (specimen) PM EST 11:42 PM EST Yonathan Smith MD POINT OF CARE TEST ORDERABLE S Performing Organization Address City/State/[place] [address] POCT Glucose (08/09/2017 8:55 PM EST) athologist Signature POC Glucose 182 65 - 199 BARBARA ZHAORYAN mg/dL [facility] LABORATORY Comment: Supplemental ranges: <140 mg/dL before meals <180 mg/dL all other times of the day Specimen Anatomical Collection Method Collection Time Receive d Time (Source) Location / / Volume Laterality Blood specimen 08/09/2017 8:55 PM 018 8:55 (specimen) EST PM EST Yonathan Smith MD POINT OF CARE TEST ORDERABLE S Performing Organization Address City/[facility]/[place] [address] (ABNORMAL) APTT (08/09/2017 6:42 [...] City/[facility]/[place] [address] POCT Glucose (08/09/2017 4:41 PM EST) athologist Signature POC Glucose 195 65 - 199 [facility] mg/dL [facility] LABORATORY Comment: Supplemental ranges: <140 mg/dL before meals <180 mg/dL all other times of the day Specimen Anatomical Collection Method Collection Time Receive d Time (Source) Location / / Volume Laterality Blood specimen 08/09/2017 4:41 PM 018 4:41 (specimen) EST PM EST Yonathan Smith MD POINT OF CARE TEST ORDERABLE S Performing Organization Address City/[facility]/[place] [address] POCT Glucose (08/09/2017 12:29 PM EST) athologist Signature POC Glucose 140 65 - 199 [facility] mg/dL [facility] LABORATORY Comment: Supplemental ranges: <140 mg/dL before meals <180 mg/dL all other times of the day Specimen Anatomical Collection Method Collection Time Receive d Time (Source) Location / / Volume Laterality Blood specimen 08/09/2017 12:29 8 (specimen) PM EST 12:29 PM EST Yonathan Smith MD POINT OF CARE TEST ORDERABLE S Performing Organization Address [facility]/ZIP Code Phon e Number [address] POCT Glucose (08/09/2017 9:59 AM EST) P athologist Signature POC Glucose 135 65 - 199 [facility] mg/dL [facility] LABORATORY Comment: Supplemental ranges: <140 mg/dL before meals <180 mg/dL all other times of the day Specimen Anatomical Collection Method Collection Time Receive d Time (Source) Location / / Volume Laterality Blood specimen 08/09/2017 9:59 AM 018 9:59 (specimen) EST AM EST Yonathan Smith MD POINT OF CARE TEST ORDERABLE S Performing Organization Address [facility]/ZIP Code Phon e Number [address] Specimen to Pathology (08/09/2017 [...] City/[facility]/[place] [address] Surgical Pathology Report (08/09/2017 8:40 AM EST) Component Value Ref Test Analysis Performed At Patholo gist Range Method Time Signature Surgical [id number] ? Location: [facility]; [facility]; A [facility] Report The [...] Henrique Flower Verified: ??08/13/2017 ?Pathologist Performed at: ??-[facility] Dept. of Pathology, [place], [place] CLINICAL [...] Address City/State/ZIP [place] [address] Anaerobic Culture (08/09/2017 8:30 AM EST) [facility] [employer] Method Time Signature Anaerobic No anaerobic [facility] Culture organisms [facility] [...] City/[facility]/[place] [address] (ABNORMAL) Abscess/Wound Aspirate Culture (08/09/2017 8:30 AM EST) [facility] Method Time Signature Abscess/Wound Moderate mixed [facility] Aspirate bacterial [facility] Culture morphotypes [facility] normal LABORATORY cutaneous leroy (A) Gram Stain Rare White Blood Cells BARBARA Few Gram Positive Cocci in pairs [facility] () [facility] LABORATORY Organism Gram Positive BARBARA Cocci in pairs [facility] () [facility] LABORATORY [...] City/[facility]/ZIP Code Phon e Number [place] [id number] HOSPITAL LAB[address]ORY Drive POCT Glucose (08/09/2017 4:28 AM EST) P athologist Signature POC Glucose 128 65 - 199 [facility] mg/dL [facility] LABORATORY Comment: Supplemental ranges: <140 mg/dL before meals <180 mg/dL all other times of the day Specimen Anatomical Collection Method Collection Time Receive d Time (Source) Location / / Volume Laterality Blood specimen 08/09/2017 4:28 AM 018 4:28 (specimen) EST AM EST Yonathan Smith MD POINT OF CARE TEST ORDERABLE S Performing Organization Address City/State/[place] [address] ABORH Recheck Status (08/09/2017 1:10 AM EST) [facility] Method Time Signature ABORH Type Completed [facility] LABORATORY Specimen Anatomical Collection Method Collection Time Receive d Time (Source) Location / / Volume Laterality Blood specimen 08/09/2017 1:10 AM 018 1:35 (specimen) EST AM EST Resulting Agency Comment Spec In Lab Yonathan Smith MD BLOOD BANK ORDERABLES Performing Organization Address City/[facility]/[place] [address] Antibody screen (08/09/2017 1:10 AM EST) [facility] Method Time Signature Ab Screen Negative [facility] LABORATORY Expires at 08/12/2017 [facility] [id number] on: [facility] LABORATORY Specimen Anatomical Collection Method Collection Time Receive d Time (Source) Location / / Volume Laterality Blood specimen 08/09/2017 1:10 AM 018 1:35 (specimen) EST AM EST Resulting Agency Comment Spec In Lab Yonathan Smith MD BLOOD BANK ORDERABLES Performing Organization Address City/[facility]/[place] [address] ABO/Rh Typing (08/09/2017 1:10 [...] City/[facility]/[place] [address] (ABNORMAL) APTT (08/09/2017 1:10 [...] Address City/State/ZIP [place] [address] (ABNORMAL) Differential, Automated (08/09/2017 1:10 AM EST) [facility] gist Method Time Signature Neutrophils % 76.2 % [facility] LABORATORY Neutr Abs (ANC) 8.59 (H) 1.70 - [facility] 6.[address] [facility] x10(3)/[facility] LABORATORY Lymphocytes % 11.0 % [facility] LABORATORY Lymphocytes Abs 1.2 0.9 - 3.2 [facility] x10(3)/[facility] LABORATORY Monocytes % 8.4 % [facility] LABORATORY Monocyte Abs 1.0 (H) 0.3 - 0.9 [facility] x10(3)/[facility] LABORATORY Eosinophils % 3.5 % [facility] LABORATORY Eosinophils Abs 0.4 0.0 - 0.4 [facility] x10(3)/[facility] LABORATORY Basophils % 0.5 % [facility] LABORATORY Basophils Abs 0.1 0.0 - 0.1 [facility] x10(3)/[facility] LABORATORY Immature Gran [...] Address City/State/ZIP [place] [address] (ABNORMAL) Hemogram (08/09/2017 1:10 AM EST) Analysis Performed At Patho logist Time Signature WBC 11.3 (H) 4.0 - 9.5 [facility] x10(3)/[facility] LABORATORY RBC 3.47 (L) 4.58 - [facility] 5.[address] [facility] x10(6)/[facility] LABORATORY Hemoglobin 10.0 (L) 13.7 - [facility] 16.5 gm/dL [facility] LABORATORY Hematocrit 31.9 (L) 40.5 - [facility] 48.5 % [facility] LABORATORY MCV 91.9 82.9 - [facility] 93.1 [facility] LABORATORY MCH 28.8 27.5 - [facility] RYAN 32.1 pg [facility] LABORATORY MCHC 31.3 (L) 32.0 - [facility] 35.7 gm/dL [facility] LABORATORY Platelets 234 145 - 357 [facility] x10(3)/[facility] LABORATORY RDWSD 54.0 (H) 36.0 - [facility] RYAN 45.0 [facility] LABORATORY RDWCV 16.2 (H) 11.4 - [facility] 13.8 % [facility] LABORATORY MPV 8.7 7.6 - 12.9 [facility] LABORATORY nRBC % Auto 0.0 % [facility] LABORATORY nRBC Abs Auto 0.000 0.000 - [place] RYAN 0.[address] [facility] x10(3)/[facility] LABORATORY Specimen Anatomical Collection Method Collection Time Receive d Time (Source) Location / / Volume Laterality Blood specimen 08/09/2017 1:10 AM 018 1:19 (specimen) EST AM EST Resulting Agency Comment Spec In Lab Yonathan Smith MD HEMATOLOGY ORDERABLES Performing Organization Address [facility] [place] [address] (ABNORMAL) Prothrombin Time (08/09/2017 [...] ORDERABLES Performing Organization Address [facility] [place] [address] (ABNORMAL) Basic Metabolic Panel (non-fasting) (08/09/2017 1:10 AM EST) athologist Signature Glucose Lvl 108 65 - 199 [facility] mg/dL [facility] - [...] or in patients with acute kidney failure. [email or web address] Specimen Anatomical Collection Method Collection Time Receive d Time (Source) Location / / Volume Laterality Blood specimen 08/09/2017 1:10 AM 018 1:19 (specimen) EST AM EST Resulting Agency Comment Spec In Lab Yonathan Smith MD CHEMISTRY ORDERABLES Performing Organization Address City/State/ZIP Code Phon e Number [address] POCT Glucose (08/09/2017 12:05 AM EST) athologist Signature POC Glucose 128 65 - 199 [facility] mg/dL [facility] LABORATORY Comment: Supplemental ranges: <140 mg/dL before meals <180 mg/dL all other times of the day Specimen Anatomical Collection Method Collection Time Receive d Time (Source) Location / / Volume Laterality Blood specimen 08/09/2017 12:05 8 (specimen) AM EST 12:05 AM EST Yonathan Smith MD POINT OF CARE TEST ORDERABLE S Performing Organization Address City/State/[place] [address] (ABNORMAL) POCT Glucose (08/08/2017 7:36 PM EST) athologist Signature POC Glucose 215 (H) 65 - 199 [facility] LABORATORY Comment: Supplemental ranges: <140 mg/dL before meals <180 mg/dL all other times of the day Specimen Anatomical Collection Method Collection Time Receive d Time (Source) Location / / Volume Laterality Blood specimen 08/08/2017 7:36 PM 018 7:36 (specimen) EST PM EST Yonathan Smith MD POINT OF CARE TEST ORDERABLE S Performing Organization Address City/[facility]/[place] [address] (ABNORMAL) POCT Glucose (08/08/2017 6:23 PM EST) athologist Signature POC Glucose 216 (H) 65 - 199 [facility] mg/dL [facility] LABORATORY Comment: Supplemental ranges: <140 mg/dL before meals <180 mg/dL all other times of the day Specimen Anatomical Collection Method Collection Time Receive d Time (Source) Location / / Volume Laterality Blood specimen 08/08/2017 6:23 PM 018 6:23 (specimen) EST PM EST Yonathan Smith MD POINT OF CARE TEST ORDERABLE S Performing Organization Address City/[facility]/[place] [address] (ABNORMAL) APTT (08/08/2017 6:00 [...] City/[facility]/ZIP Code Phon e Number [facility] [place] [address] POCT Glucose (08/08/2017 4:42 PM EST) athologist Signature POC Glucose 78 65 - 199 [facility] mg/dL [facility] LABORATORY Comment: Supplemental ranges: <140 mg/dL before meals <180 mg/dL all other times of the day Specimen Anatomical Collection Method Collection Time Receive d Time (Source) Location / / Volume Laterality Blood specimen 08/08/2017 4:42 PM 018 4:42 (specimen) EST PM EST Yonathan Smith MD POINT OF CARE TEST ORDERABLE S Performing Organization Address City/State/[place] [address] (ABNORMAL) POCT Glucose (08/08/2017 4:01 PM EST) athologist Signature POC Glucose 58 (L) 65 - 199 [facility] mg/dL [facility] LABORATORY Comment: Supplemental ranges: <140 mg/dL before meals <180 mg/dL all other times of the day Specimen Anatomical Collection Method Collection Time Receive d Time (Source) Location / / Volume Laterality Blood specimen 08/08/2017 4:01 PM 018 4:01 (specimen) EST PM EST Yonathan Smith MD POINT OF CARE TEST ORDERABLE S Performing Organization Address City/State/[place] [address] POCT Glucose (08/08/2017 11:51 AM EST) athologist Signature POC Glucose 90 65 - 199 [facility] mg/dL [facility] LABORATORY Comment: Supplemental ranges: <140 mg/dL before meals <180 mg/dL all other times of the day Specimen Anatomical Collection Method Collection Time Receive d Time (Source) Location / / Volume Laterality Blood specimen 08/08/2017 11:51 8 (specimen) AM EST 11:51 AM EST Yonathan Smith MD POINT OF CARE TEST ORDERABLE S Performing Organization Address City/State/[place] [address] (ABNORMAL) APTT (08/08/2017 10:27 [...] City/[facility]/ZIP Code Phon e Number [address] POCT Glucose (08/08/2017 8:02 AM EST) athologist Signature POC Glucose 178 65 - 199 [facility] mg/dL [facility] LABORATORY Comment: Supplemental ranges: <140 mg/dL before meals <180 mg/dL all other times of the day Specimen Anatomical Collection Method Collection Time Receive d Time (Source) Location / / Volume Laterality Blood specimen 08/08/2017 8:02 AM 018 8:02 (specimen) EST AM EST Yonathan Smith MD POINT OF CARE TEST ORDERABLE S Performing Organization Address City/[facility]/[place] [address] (ABNORMAL) APTT (08/08/2017 4:51 AM EST) athologist Signature PTT >160 25 - 35 [facility] (Critical) sec [facility] LABORATORY Comment: Called by: HOWARD, Read back [...] Address City/State/ZIP [place] [address] (ABNORMAL) Differential, Automated (08/08/2017 4:51 AM EST) [facility] gist Method Time Signature Neutrophils % 77.9 % [facility] LABORATORY Neutr Abs (ANC) 8.17 (H) 1.70 - [facility] 6.[address] [facility] x10(3)/[facility] LABORATORY Lymphocytes % 10.3 % [facility] LABORATORY Lymphocytes Abs 1.1 0.9 - 3.2 [facility] x10(3)/[facility] LABORATORY Monocytes % 7.0 % [facility] LABORATORY Monocyte Abs 0.7 0.3 - 0.9 [facility] x10(3)/[facility] LABORATORY Eosinophils % 3.6 % [facility] LABORATORY Eosinophils Abs 0.4 0.0 - 0.4 [facility] x10(3)/[facility] LABORATORY Basophils % 0.5 % [facility] LABORATORY Basophils Abs 0.0 0.0 - 0.1 [facility] x10(3)/[facility] LABORATORY Immature Gran % 0.70 % [...] Address City/State/ZIP Code Phon e Number [address] (ABNORMAL) Hemogram (08/08/2017 4:51 AM EST) Analysis Performed At Patho logist Time Signature WBC 10.5 (H) 4.0 - 9.5 [facility] x[facility](3)/[facility] LABORATORY RBC 3.27 (L) 4.58 - [place] [address] [facility] x10(6)/[facility] LABORATORY Hemoglobin 9.3 (L) 13.7 - [facility] 16.5 gm/dL [facility] LABORATORY Hematocrit 30.3 (L) 40.5 - [facility] 48.5 % [facility] LABORATORY MCV 92.7 82.9 - [facility] 93.1 [facility] LABORATORY MCH 28.4 27.5 - [place] 32.1 pg [facility] LABORATORY MCHC 30.7 (L) 32.0 - [place] R[place]AN 35.7 gm/dL [facility] LABORATORY Platelets 252 145 - 357 [facility] x10(3)/[facility] LABORATORY RDWSD 54.6 (H) 36.0 - [place] 45.0 [facility] LABORATORY RDWCV 16.2 (H) 11.4 - [facility] RYAN 13.8 % [facility] LABORATORY MPV 9.1 7.6 - 12.9 [facility] LABORATORY nRBC % Auto 0.0 % [facility] LABORATORY nRBC Abs Auto 0.000 0.000 - [place] 0.[address] [facility] x10(3)/[facility] LABORATORY Specimen Anatomical Collection Method Collection Time Receive d Time (Source) Location / / Volume Laterality Blood specimen 08/08/2017 4:51 AM 018 5:14 (specimen) EST AM EST Resulting Agency Comment Spec In Lab Yonathan Smith MD HEMATOLOGY ORDERABLES Performing Organization Address City/State/[place] [address] (ABNORMAL) Prothrombin Time (08/08/2017 [...] [place] [address] (ABNORMAL) Basic Metabolic Panel (non-fasting) (08/08/2017 4:51 AM EST) athologist Signature Glucose Lvl 229 (H) 65 - 199 [facility] mg/dL [facility] [...] or in patients with acute kidney failure. [email or web address] Specimen Anatomical Collection Method Collection Time Receive d Time (Source) Location / / Volume Laterality Blood specimen 08/08/2017 4:51 AM 018 5:14 (specimen) EST AM EST Resulting Agency Comment Spec In Lab Yonathan Smith MD CHEMISTRY ORDERABLES Performing Organization Address City/[facility]/ZIP Code Phon e Number [address] POCT Glucose (08/08/2017 4:20 AM EST) athologist Signature POC Glucose 193 65 - 199 [facility] mg/dL [facility] LABORATORY Comment: Supplemental ranges: <140 mg/dL before meals <180 mg/dL all other times of the day Specimen Anatomical Collection Method Collection Time Receive d Time (Source) Location / / Volume Laterality Blood specimen 08/08/2017 4:20 AM 018 4:20 (specimen) EST AM EST Yonathan Smith MD POINT OF CARE TEST ORDERABLE S Performing Organization Address City/[facility]/ZIP Code Phon e Number [address] POCT Glucose (08/07/2017 11:11 PM EST) athologist Signature POC Glucose 124 65 - 199 [facility] mg/dL [facility] LABORATORY Comment: Supplemental ranges: <140 mg/dL before meals <180 mg/dL all other times of the day Specimen Anatomical Collection Method Collection Time Receive d Time (Source) Location / / Volume Laterality Blood specimen 08/07/2017 11:11 8 (specimen) PM EST 11:11 PM EST Yonathan Smith MD POINT OF CARE TEST ORDERABLE S Performing Organization Address City/[facility]/[place]IP [place] [address] (ABNORMAL) APTT (08/07/2017 10:18 [...] [place] [address] POCT Glucose (08/07/2017 8:10 PM EST) athologist Signature POC Glucose 140 65 - 199 [facility] mg/dL [facility] LABORATORY Comment: Supplemental ranges: <140 mg/dL before meals <180 mg/dL all other times of the day Specimen Anatomical Collection Method Collection Time Receive d Time (Source) Location / / Volume Laterality Blood specimen 08/07/2017 8:10 PM 018 8:10 (specimen) EST PM EST Yonathan Smith MD POINT OF CARE TEST ORDERABLE S Performing Organization Address City/State/[place] [address] POCT Glucose (08/07/2017 5:27 PM EST) athologist Signature POC Glucose 187 65 - 199 [facility] mg/dL [facility] LABORATORY Comment: Supplemental ranges: <140 mg/dL before meals <180 mg/dL all other times of the day Specimen Anatomical Collection Method Collection Time Receive d Time (Source) Location / / Volume Laterality Blood specimen 08/07/2017 5:27 PM 018 5:27 (specimen) EST PM EST Yonathan Smith MD POINT OF CARE TEST ORDERABLE S Performing Organization Address City/[facility]/[place] [address] POCT Glucose (08/07/2017 3:29 PM EST) athologist Signature POC Glucose 86 65 - 199 [facility] mg/dL [facility] LABORATORY Comment: Supplemental ranges: <140 mg/dL before meals <180 mg/dL all other times of the day Specimen Anatomical Collection Method Collection Time Receive d Time (Source) Location / / Volume Laterality Blood specimen 08/07/2017 3:29 PM 018 3:29 (specimen) EST PM EST Yonathan Smith MD POINT OF CARE TEST ORDERABLE S Performing Organization Address [facility] [place] [address] (ABNORMAL) APTT (08/07/2017 2:50 [...] ORDERABLES Performing Organization Address City/[facility]/ZIP [facility] [place] [address] (ABNORMAL) POCT Glucose (08/07/2017 2:23 PM EST) athologist Signature POC Glucose 55 (L) 65 - 199 [place] mg/dL [facility] LABORATORY Comment: Supplemental ranges: <140 mg/dL before meals <180 mg/dL all other times of the day Specimen Anatomical Collection Method Collection Time Receive d Time (Source) Location / / Volume Laterality Blood specimen 08/07/2017 2:23 PM 018 2:23 (specimen) EST PM EST Yonathan Smith MD POINT OF CARE TEST ORDERABLE S Performing Organization Address City/State/ZIP Code Phon e Number [address] POCT Glucose (08/07/2017 12:08 PM EST) P athologist Signature POC Glucose 77 65 - 199 [facility] mg/dL [facility] LABORATORY Comment: Supplemental ranges: <140 mg/dL before meals <180 mg/dL all other times of the day Specimen Anatomical Collection Method Collection Time Receive d Time (Source) Location / / Volume Laterality Blood specimen 08/07/2017 12:08 8 (specimen) PM EST 12:08 PM EST Yonathan Smith MD POINT OF CARE TEST ORDERABLE S Performing Organization Address City/State/[place] [address] (ABNORMAL) Differential, Automated (08/07/2017 7:30 AM EST) Patholo gist Method Time Signature Neutrophils % 73.8 % [facility] LABORATORY Neutr Abs (ANC) 7.17 (H) 1.70 - [facility] 6.[address] [facility] x10(3)/[facility] L LABORATORY Lymphocytes % 12.2 % [facility] LABORATORY Lymphocytes Abs 1.2 0.9 - 3.2 [facility] x10(3)/[facility] LABORATORY Monocytes % 9.0 % [facility] LABORATORY Monocyte Abs 0.9 0.3 - 0.9 [facility] x10(3)/[facility] LABORATORY Eosinophils % 3.9 % [facility] LABORATORY Eosinophils Abs 0.4 0.0 - 0.4 [facility] x10(3)/[facility] LABORATORY Basophils % 0.6 % [facility] LABORATORY Basophils Abs 0.1 0.0 - 0.1 [facility] x10(3)/[facility] LABORATORY Immature Gran % 0.50 % [...] City/State/ZIP Code Phon e Number [place] [id number] HOSPITAL LABORATORY Drive (ABNORMAL) Hemogram (08/07/2017 7:30 AM EST) Analysis Performed At Patho logist Time Signature WBC 9.7 (H) 4.0 - 9.5 [facility] x10(3)/[facility] LABORATORY RBC 3.54 (L) 4.58 - [facility] 5.[address] [facility] x10(6)/[facility] LABORATORY Hemoglobin 9.9 (L) 13.7 - [facility] 16.5 gm/dL [facility] LABORATORY Hematocrit 32.3 (L) 40.5 - [facility] 48.5 % [facility] LABORATORY MCV 91.2 82.9 - [facility] 93.1 [facility] LABORATORY MCH 28.0 27.5 - [facility] 32.1 pg [facility] LABORATORY MCHC 30.7 (L) 32.0 - [facility] 35.7 gm/dL [facility] LABORATORY Platelets 312 145 - 357 [facility] x10(3)/[facility] LABORATORY RDWSD 53.2 (H) 36.0 - [facility] 45.0 f[facility] LABORATORY RDWCV 16.0 (H) 11.4 - [facility] 13.8 % [facility] LABORATORY MPV 8.9 7.6 - 12.9 [facility] LABORATORY nRBC % Auto 0.0 % [facility] LABORATORY nRBC Abs Auto 0.000 0.000 - [facility] 0.[address] [facility] x10(3)/[facility] LABORATORY Specimen Anatomical Collection Method Collection Time Receive d Time (Source) Location / / Volume Laterality Blood specimen 08/07/2017 7:30 AM 018 7:45 (specimen) EST AM EST Resulting Agency Comment Spec In Lab Yonathan Smith MD HEMATOLOGY ORDERABLES Performing Organization Address City/State/ZIP [place] [address] (ABNORMAL) Basic Metabolic Panel (non-fasting) (08/07/2017 7:30 AM EST) athologist Signature Glucose Lvl 80 65 - 199 [facility] mg/dL [facility] - [...] or in patients with acute kidney failure. [email or web address] Specimen Anatomical Collection Method Collection Time Receive d Time (Source) Location / / Volume Laterality Blood specimen 08/07/2017 7:30 AM 018 7:45 (specimen) EST AM EST Resulting Agency Comment Spec In Lab Yonathan Smith MD CHEMISTRY ORDERABLES Performing Organization Address City/[facility]/ZIP [facility] Phon e Number [address] POCT Glucose (08/07/2017 7:27 AM EST) athologist Signature POC Glucose 81 65 - 199 [facility] mg/dL [facility] LABORATORY Comment: Supplemental ranges: <140 mg/dL before meals <180 mg/dL all other times of the day Specimen Anatomical Collection Method Collection Time Receive d Time (Source) Location / / Volume Laterality Blood specimen 08/07/2017 7:27 AM 018 7:27 (specimen) EST AM EST Yonathan Smith MD POINT OF CARE TEST ORDERABLE S Performing Organization Address City/[facility] Phon e Number [address] APTT (08/07/2017 7:04 AM [...] [place] [address] (ABNORMAL) Prothrombin Time (08/07/2017 [...] [place] [address] POCT Glucose (08/07/2017 4:03 AM EST) athologist Signature POC Glucose 93 65 - 199 [facility] mg/dL [facility] LABORATORY Comment: Supplemental ranges: <140 mg/dL before meals <180 mg/dL all other times of the day Specimen Anatomical Collection Method Collection Time Receive d Time (Source) Location / / Volume Laterality Blood specimen 08/07/2017 4:03 AM 018 4:03 (specimen) EST AM EST Yonathan Smith MD POINT OF CARE TEST ORDERABLE S Performing Organization Address City/State/[place] [address] POCT Glucose (08/07/2017 12:04 AM EST) athologist Signature POC Glucose 107 65 - 199 [facility] mg/dL [facility] LABORATORY Comment: Supplemental ranges: <140 mg/dL before meals <180 mg/dL all other times of the day Specimen Anatomical Collection Method Collection Time Receive d Time (Source) Location / / Volume Laterality Blood specimen 08/07/2017 12:04 8 (specimen) AM EST 12:04 AM EST Yonathan Smith MD POINT OF CARE TEST ORDERABLE S Performing Organization Address City/[facility]/ZIP Code Phon e Number [address] POCT Glucose (08/06/2017 7:56 PM EST) P athologist Signature POC Glucose 178 65 - 199 [facility] mg/dL [facility] LABORATORY Comment: Supplemental ranges: <140 mg/dL before meals <180 mg/dL all other times of the day Specimen Anatomical Collection Method Collection Time Receive d Time (Source) Location / / Volume Laterality Blood specimen 08/06/2017 7:56 PM 018 7:56 (specimen) EST PM EST Yonathan Smith MD POINT OF CARE TEST ORDERABLE S Performing Organization Address City/State/ZIP Code Phon e Number [address] TcPO2 (08/06/2017 2:32 PM EST) Component Value Ref Test Analysis Performed At Patholo gist Range Method Time Signature VB Text Department: Vascular Surgery Lab VASCUBASE Report Patient: [id number] (GREGORY HOANG) CPT: [id number] ICD10: I99.8 Referring Physician: YONATHAN SMITH ?? [...]
Routine documented in this encounter Care Teams Electron Beam Welding Machine Operator Relationship Specialty Start Date End Date Lovely Vicente MD PCP - General 04/16/[address] [place] [address] [address] [place] [address] documented as of this encounter
--- OUTSIDE RECORDS SUMMARY | 2022-04-27 08:16 | XMS_ITS | Encounter Summary ---
:1945 Author Organization [facility] [place] [address] Care Team Providers Name Role Phone Lovely Vicente MD Primary Care Provider Encounter Details Date Type Department Care Team Description 08/09/2017 Clinical Support Same Day at [facility] Canceled (D-SCHED ERROR [facility] / CORRECT ION ) [place] [address] Social History Tobacco Use Types Packs/Day [...] [facility] er [address] [place], [place] [address] (Wo rk) 05/28/2022 Laboratory Appointment Lab 05/28/2022 Office Visit Cardiology Zulma Dolan MD [facility] [place] [address] Liz Poole PA [facility] [place] [address] 06/10/2022 Office Visit Dermatology Laura Scherer MD [facility] [address] [place], [place] [address] (Wo rk) documented as of this encounter Procedures Procedure Name Priority Date/Time Associated Diagnosis Comme nts EDITOR SOUND 08/09/2017 12:00 AM Resul ts for this SCAN EST procedure are i n the results section. documented in this encounter Results SCAN DOC: EDITOR SOUND (08/09/2017 12:00 AM EST) Narrative 08/09/2017 12:00 AM EST This result has an attachment that is no t available. Ordered by an unspecified provider. Scanning Provider MEDIA MGR SCAN EXT ORDR/RSLT documented in this encounter Visit Diagnoses Not on filedocumented in this encounter Care Teams Fiberglass Roving Winder Relationship Specialty Start Date End Date Lovely Vicente MD PCP - General 04/16/[address] [place] [address] documented as of this encounter
--- OUTSIDE RECORDS SUMMARY | 2022-04-27 08:17 | XMS_ITS | Encounter Summary ---
:1945 Author Organization [facility] [place] [address] Care Team Providers Name Role Phone Lovely Vicente MD Primary Care Provider Reason for Visit Reason Comments Deep Vein Thrombosis Auth/Cert Specialty Diagnoses / Procedures Referred By Contact Refer red To Contact Diagnoses Critical lower limb ischemia CELLULITIS RT FOOT Procedures EMERGENCY Referral ID Status Reason Start Date Expiration Date Visits Requ ested Visits Authorized [id number] 1 1 Encounter Details Date Type Department Care Team Description 08/04/2017 Office Visit Vascular Surgery at [facility] itical lower limb [facility] ischemia Critical access [facility] [address] [place], [place] VASCULAR SURGERY [id number] [place] [address] [phone] Social History Tobacco Use Types Packs/Day Years [...] was discharged on Coumadin. ??He presented to [facility] on 07/20 with mottled toes on the [...] [facility] [place] [address] (Wo rk) 05/28/2022 Laboratory Appointment Lab 05/28/2022 Office Visit Cardiology Zulma Dolan MD [facility] [place] [address] Liz Poole PA [facility] [place] [address] 06/10/2022 Office Visit Dermatology Laura Scherer MD [facility] ER DR [address] [place], [place] [address] (Wo rk) documented as of this encounter Visit Diagnoses Diagnosis Critical lower limb ischemia Unspecified circulatory system disorder documented in this encounter Care Teams Skiver Heel Tap Relationship Specialty Start Date End Date Lovely Vicente MD PCP - General 04/16/15 [facility] [address] [place], [place] [id number] documented as of this encounter
--- OUTSIDE RECORDS SUMMARY | 2022-04-27 08:17 | XMS_ITS | Encounter Summary ---
:1945 Author Organization [facility] [place] [address] Care Team Providers Name Role Phone Lovely Vicente MD Primary Care Provider Reason for Visit Reason Comments Pain Management Ankle Pain Toe Pain Encounter Details Date Type Department Care Team Description 07/30/2017 Office Visit Pain Management at Barbra Soares, Per ipheral neuropathy Hardy SLOT ROUTER due to ischemia [facility] [address], [place], [place] [phone] Social History Tobacco Use Types Packs/Day Years [...] Soares APRN - 07/30/2017 1:45 PM EST [facility] [place] [address] Phone: PAIN MANAGEMENT NEW PATIENT / CONSULTATION NOTE DATE OF VISIT 07/30/2017 Patient Don Fatima 1945 REFERRING PROVIDER Lovely Vicente MD [address] [place] [id number] PRIMARY CARE PROVIDER Lovely Vicente MD CHIEF [...] PAST THERAPIES: Nothing MEDICATIONS The [place] Prescription Monitoring Program was checked [...] SETUP performed by Manny Mcknight MD at [facility] OR ??? PRO CABG, ARTERIAL, SINGLE N/A 07/07/2017 @CABG, USING ARTERIAL GRAFT;SINGLE ARTERIAL GRAFT (WRVU 33.75) performed by Yuan Retana MD at [facility] OR ??? PRO CABG, ARTERY-VEIN, [...] 0.31) performed by Yuan Retana MD at [facility] OR ??? PRO THYROIDECTOMY 03/28/2013 [...] referral, Lovely Vicente MD [address] [place] [address]. Barbra Soares, MSN, SECRETARY BOOKKEEPER-BC, SLOT ROUTER Nurse Practitioner [facility] documented in this encounter Plan of Treatment Upcoming Encounters Date Type Specialty Care Team Description 05/28/2022 Appointment Cardiology Zulma Dolan MD [facility] [place], [place] [address] (Wo rk) 05/28/2022 Laboratory Appointment Lab 05/28/2022 Office Visit Cardiology Zulma Dolan MD [facility] [place] [address] Liz Poole PA 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
--- OUTSIDE RECORDS SUMMARY | 2022-04-27 08:17 | XMS_ITS | Encounter Summary ---
:1945 [place] [address] Care Team Providers Name Role Phone Lovely Vicente MD Primary Care Provider Encounter Details Date Type Department Care Team Description 08/03/2017 Hospital Encounter Radiology Library at [place], Tommy Mijares [facility] [place] [address] VASCULAR SURGERY [phone] [place], [place] [address] (Wo rk) Social History Tobacco [...] MD [facility] [address] [place], [place] [address] (Wo rk) 05/28/2022 Laboratory Appointment Lab 05/28/2022 Office Visit Cardiology [place]ulma [place]olan [place] [address] Liz Poole PA [facility] [place] [address] 06/10/2022 Office Visit Dermatology Laura Scherer MD [facility] [address] [place], [place] [address] (Wo rk) documented as of [...] Received Time / Laterality Volume Narrative [facility] - 08/03/2017 6:01 PM EST This exam is for storage only and is aut o-finalizing. Arik Clement MD G FILM LIBRARY ORDERABLES Performing Organization Address City/State/ZIP Code Phon e Number [place], [place] documented in this encounter Visit Diagnoses Diagnosis Pain Generalized pain documented in this encounter Care Teams Physicians Assistant Relationship Specialty Start Date End Date Lovely Vicente MD PCP - General 04/16/[address] [place] [address] documented as of this encounter
--- OUTSIDE RECORDS SUMMARY | 2022-04-27 08:17 | XMS_ITS | Encounter Summary ---
:1945 [place] [address] Care Team Providers Name Role Phone Lovely Vicente MD Primary Care Provider Reason for Visit Auth/Cert Specialty Diagnoses / Procedures Referred By Contact Refer red To Contact Diagnoses Critical lower limb ischemia CELLULITIS RT FOOT Procedures EMERGENCY Referral ID Status Reason Start Date Expiration Date Visits Requ ested Visits Authorized [id number] 1 1 Encounter Details Date Type Department Care Team Description 08/09/2017 Anesthesia Event Main Operating Room Daniele Lizama MD [facility] [place] [address] [facility] Rob Jones MD [facility] [place] [address] [place] [address] Anesthesia Record Procedure Summary Procedure Name [...] Knowles, Dory arm), right; VAMSI Rios, RN seou-jqq-wgwnyt catheter system; 20 gauge; 08/16/17; 1047 PIV 07/29/17; 1413; median 07/29/17 1413 by 08/16/17 1047 by cubital vein (antecubital Magdalene Hickey Williams, Dory fossa), left; VAMSI Wyatt, RN oriw-hpz-bremjl catheter system; 20 gauge; 08/16/17; 1047 PIV 08/06/17; 1742; cephalic 08/06/17 1742 by 0920 by vein (lateral side of Taylor Laureano Danah y, Caitlyn C, arm), right; VAMSI BONNER prxg-ifr-xxpobg catheter system; 22 gauge, 1 in length; Eliseo LAUREANO RN VAS; distraction, intradermal injection, tolerated well, appears comfortable; 0; 08/16/17; 0920 Wound 08/07/17; 1335; knee; 08/07/17 1335 by 08/16/17 1047 by laceration; wound occured Barbara Albert iams, Dory CUPOLA CHARGER INSULATION; 08/16/17; 1047 VAMSI Alonzo, RN PIV 08/07/17; 1734; cephalic 08/07/17 1734 by 1047 by vein (lateral side of Kendrick, Carlos W, Willia ms, Dory arm), left; MARCIE Wyatt RN iofm-voj-qgdsjz catheter system; 22 gauge; distraction, intradermal injection, tolerated well; 08/16/17; 1047 Incision 08/09/17; 0820; foot; 08/09/17 0820 by 12/08/21 0000 by 12/08/21 Kristie Mansfield RN Heenehan, Lisa M, RN Urethral Catheter 08/09/17; 0920; Acute 08/09/17 0920 by 8 0935 by urinary retention; Nayt Crowder RN Brown, Pa mela K, RN [...] Stop Room / Location 08/09/17 0802 0901 [facility] OR [facility] / [facility] Procedure Diagnosis Surgeon Responsible Provider AMPUTATION, 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 Nerve [...] Mcknight MD at [facility] Social History Substance Use [...] adequate IV access. Brody Santillan MD PGY-2, Conventional Underwriter Pager #[phone] Anesthesiology Staff (Dewhirst): Pre-op summary note as [...] Dolan MD [facility] [address] [place], [place] [address] (Wo rk) 05/28/2022 Laboratory Appointment Lab 05/28/2022 Office Visit Cardiology Zulma Dolna [place] [address] Liz Poole PA [facility] [place] [address] 06/10/2022 Office Visit Dermatology Laura Scherer MD [facility] [address] [place], [place] [address] (Wo rk) documented as of [...] Length: 10 cm Gauge: 21 Needle Type: M-exaaf-yvvcv Medication injection made in crementally with aspirations. [...] Procedure) documented in this encounter Care Teams Public Affairs Manager Relationship Specialty Start Date End Date Lovely Vicente MD PCP - General 04/16/15 [facility] [address] [place] [address] documented as of this encounter
--- OUTSIDE RECORDS SUMMARY | 2022-04-27 08:17 | XMS_ITS | Encounter Summary ---
:1945 Author Organization [facility] [address] Care Team Providers Name Role Phone Lovely Vicente MD Primary Care Provider Encounter Details Date Type Department Care Team Description 08/06/2017 Orders Only Vascular Surgery at [facility] Eden Moss APRN Ischemia of foot [facility] [place] [address] VASCULAR SURGERY [phone] [place], [place] [address] (Wo rk) Social History Tobacco [...] Zulma Dolan MD [facility] er [address] [place], [place] [address] (Wo rk) 05/28/2022 Laboratory Appointment Lab 05/28/2022 Office Visit Cardiology Zulma Dolan MD [facility] [place] [address] Liz Poole PA [facility] [place] [address] 06/10/2022 Office Visit Dermatology Laura Scherer MD [facility] ER DR [address] [place], [place] [address] (Wo rk) documented as of [...] 444 ms MUSE SYSTEM (Bezet) Calculated P [place] 44 degrees MUSE SYSTEM Calculated R [place] -31 degrees MUSE SYSTEM Calculated T [place] 106 degrees MUSE SYSTEM INTERPRETATION Normal sinus [...] (L) 20 - 40 KATALINA RYAN mg/dL [facility] Comment: Prealbumin levels are generally [...] Organization Address City/State/[place] [address] (ABNORMAL) Basic Metabolic Panel (non-fasting) (08/06/2017 12:32 PM EST) athologist Signature Glucose Lvl 92 65 - 199 [facility] mg/dL [facility] Comment: Diabetes: [...] or in patients with acute kidney failure. http://textPlus/DHnkdep http://textPlus/DHMCnkf Specimen Anatomical Collection Method Collection Time Receive d Time (Source) Location / / Volume Laterality Blood specimen 08/06/2017 12:32 8 1:15 (specimen) PM EST PM EST Resulting Agency Comment Spec In Lab Arik Clement MD CHEMISTRY ORDERABLES Performing Organization Address City/State/[place] [address] (ABNORMAL) Hemogram (08/06/2017 12:32 PM EST) Analysis Performed At Patho logist Time Signature WBC 11.8 (H) 4.0 - 9.5 [facility] x10(3)/[facility] LABORATORY RBC 3.49 (L) 4.58 - [facility] 5.54 [facility] x10(6)/[facility] LABORATORY Hemoglobin 9.9 (L) 13.7 - [facility] 16.5 gm/dL [facility] Hematocrit 32.0 (L) 40.5 - [facility] 48.5 % [facility] MCV 91.7 82.9 - [facility] 93.1 [facility] LABORATORY MCH 28.4 27.5 - [facility] 32.1 pg [facility] MCHC 30.9 (L) 32.0 - [facility] 35.7 gm/dL [facility] Platelets 326 145 - 357 [facility] x10(3)/[facility] LABORATORY RDWSD 53.4 (H) 36.0 - [facility] 45.0 [facility] LABORATORY RDWCV 16.0 (H) 11.4 - [facility] 13.8 % [facility] MPV 9.1 7.6 - 12.9 [facility] LABORATORY nRBC % Auto 0.0 % [facility] LABORATORY nRBC Abs Auto 0.000 0.000 - [facility] 0.000 [facility] x10(3)/[facility] LABORATORY Specimen Anatomical Collection Method Collection Time Receive d Time (Source) Location / / Volume Laterality Blood specimen 08/06/2017 12:32 8 1:15 (specimen) PM EST PM EST Resulting Agency Comment Spec In Lab Arik Clement MD HEMATOLOGY ORDERABLES Performing Organization Address City/State/[place] [address] documented in this encounter Visit Diagnoses Diagnosis Ischemia of foot Unspecified circulatory system disorder documented in this encounter Care Teams Full Stack Web Developer Relationship Specialty Start Date End Date Lovely Vicente MD PCP - General 04/16/[address] [place] [address] documented as of this encounter
--- OUTSIDE RECORDS SUMMARY | 2022-04-27 08:17 | XMS_ITS | Encounter Summary ---
:1945 Author Organization [facility] [place] [address] Care Team Providers Name Role Phone Lovely Vicente MD Primary Care Provider Reason for Visit Auth/Cert Specialty Diagnoses / Procedures Referred By Contact Refer red To Contact Diagnoses Critical lower limb ischemia CELLULITIS RT FOOT Procedures EMERGENCY Referral ID Status Reason Start Date Expiration Date Visits Requ ested Visits Authorized [id number] 1 1 Encounter Details Date Type Department Care Team Description 08/04/2017 Hospital Encounter XRay at [facility] Danette Maxwell Incisional pain [address] [place] [address] Dr Gomes, ASSISTANT TO THE VICE PRESIDENT [facility] [id number] CARDIOLOGY [place], [place] [address] Social History Tobacco Use [...] Zulma Dolan MD [facility] [place], [place] [address] (Wo rk) 05/28/2022 Laboratory Appointment Lab 05/28/2022 Office Visit Cardiology Zulma Dolan MD [facility] [place] [address] Liz Poole PA [facility] [place] [address] 06/10/2022 Office Visit Dermatology Laura Scherer MD [facility] [address] [place], [place] [address] (Wo rk) documented [...] original. EXAMINATION: XR CHEST PA AND LATERAL ([employer]) CLINICAL HISTORY: Checking sternal stabi lity/assess wires [...] Daniele gutiérrez 08/04/2017 4:13 PM Danette Maxwell ASSISTANT TO THE VICE PRESIDENT IMG DX ORDERABLES documented in this encounter Visit Diagnoses Diagnosis Incisional pain Disturbance of skin sensation documented in this encounter Care Teams Flow Nurse Relationship Specialty Start Date End Date Lovely Vicente MD PCP - General 04/16/[address] [place] [address] documented as of this encounter
--- OUTSIDE RECORDS SUMMARY | 2022-04-27 08:17 | XMS_ITS | Encounter Summary ---
:1945 Author Organization [place] [address] Care Team Providers Name Role Phone Lovely Vicente MD Primary Care Provider Reason for Visit Auth/Cert Specialty Diagnoses / Procedures Referred By Contact Refer red To Contact Diagnoses Critical lower limb ischemia CELLULITIS RT FOOT Procedures EMERGENCY Referral ID Status Reason Start Date Expiration Date Visits Requ ested Visits Authorized [id number] 1 1 Encounter Details Date Type Department Care Team Description 08/04/2017 [facility] [place] thrombosis of [facility] [place] [phone] Social History Tobacco Use Types Packs/Day Years [...] Zulma Dolan MD [facility] [place], [place] [address] (Wo rk) 05/28/2022 Laboratory Appointment Lab 05/28/2022 Office Visit Cardiology Zulma Dolan [place] [address] Liz Poole PA [facility] [place] [address] 06/10/2022 Office Visit Dermatology Laura Scherer MD [facility] DR [address] [place], [place] [address] (Wo rk) documented as of [...] Department: Vascular Surgery Lab VASCUBASE Report Patient: [id number] (DON HOANG) CPT: 95751 ICD10: I82.541 Referring Physician: MEÑO HUTSON ?? [...] extremity documented in this encounter Care Teams Weigher Alloy Relationship Specialty Start Date End Date Lovely Vicente MD PCP - General 04/16/[address] [place] [address] documented as of this encounter
--- OUTSIDE RECORDS SUMMARY | 2022-04-27 08:17 | XMS_ITS | Encounter Summary ---
:1945 [place] [address] Care Team Providers Name Role Phone Lovely Vicente MD Primary Care Provider Encounter Details Date Type Department Care Team Description 08/04/2017 Notes Only Pain Management at Barbra Bruno, [place] [address] [place] [address] [phone] (Wo rk) Social History Tobacco Use Types [...] bid) at this time. Barbra Soares, MSN, BARBER OR BEAUTY SHOP MANAGER-BC, [facility] Clinic documented in this encounter Plan of Treatment Upcoming Encounters Date Type Specialty Care Team Description 05/28/2022 Appointment Cardiology Zulma Dolan MD [facility] [address] [place], [place] [address] (Wo rk) 05/28/2022 Laboratory Appointment Lab 05/28/2022 Office Visit Cardiology Zulma Dolan MD [facility] [place] [address] Liz Poole PA [facility] [place] [address] 06/10/2022 Office Visit Dermatology Laura Scherer MD [facility] [address] [place], [place] [address] (Wo rk) documented as of this encounter Visit Diagnoses Not on filedocumented in this encounter Care Teams Waxer Floor Relationship Specialty Start Date End Date Lovely Vicente MD PCP - General 04/16/[address] [place] [address] documented as of this encounter
--- OUTSIDE RECORDS SUMMARY | 2022-04-27 08:17 | XMS_ITS | Encounter Summary ---
:1945 Author Organization [facility] [place] [address] Care Team Providers Name Role Phone Lovely Vicente MD Primary Care Provider Encounter Details Date Type Department Care Team Description 08/03/2017 Telephone Pain Management at Angeles [place], [place] [address] Social History Tobacco Use Types Packs/Day [...] Management Center Preauthorization Request Patient: Don Fatima [id number] Fax received from [facility] requesting we obtain prior authorization for Lidocaine Patches prescribed by Barbra Soares APRN. RX insurance plan: [facility] insurance telephone: [phone] Patient ?? Diagnosis: right foot pain secondary to PVD and ischemia ?? Previous medications attempted: Tylenol, Tramadol, Dilaudid Authorization/Reference number: [id number], PBP Code 801 _x_ denied, provider and patient informed _x_ appeal initiated by provider, patient informed Angeles Rodrigez, RN documented in this encounter Plan of Treatment Upcoming Encounters Date Type Specialty Care Team Description 05/28/2022 Appointment Cardiology Zulma Dolan MD [facility] [place], [place] [address] (Wo rk) 05/28/2022 Laboratory Appointment Lab 05/28/2022 Office Visit Cardiology Zulma Dolan MD [facility] [place] [address] Liz Poole PA [facility] [place] [address] 06/10/2022 Office Visit Dermatology Laura Scherer MD [facility] [address] [place], [place] [address] (Wo rk) documented as of this encounter Visit Diagnoses Not on filedocumented in this encounter Care Teams Universal Grinder Operator Relationship Specialty Start Date End Date Lovely Vicente MD PCP - General 04/16/[address] [place] [address] documented as of this encounter
--- OUTSIDE RECORDS SUMMARY | 2022-04-27 08:17 | XMS_ITS | Encounter Summary ---
:1945 Author Organization [facility] [address] Care Team Providers Name Role Phone Lovely Vicente MD Primary Care Provider Encounter Details Date Type Department Care Team Description 08/04/2017 Orders Only Cardiac Surgery Makayla Wilson APRN [facility] [place] [address] CARDIAC SURGERY [phone] [place], [place] [address] (Wo rk) Social History Tobacco [...] Zulma Dolan MD [facility] er [place], [place] [address] (Wo rk) 05/28/2022 Laboratory Appointment Lab 05/28/2022 Office Visit Cardiology Zulma Dolan MD [facility] [place] [address] Liz Poole PA [facility] [place] [address] 06/10/2022 Office Visit Dermatology Laura Scherer MD [facility] ER [address] [place], [place] [address] (Wo rk) documented as of this encounter Visit Diagnoses Not on filedocumented in this encounter Care Teams Catering Administrative Assistant Relationship Specialty Start Date End Date Lovely Vicente MD PCP - General 04/16/[address] [place] [address] documented as of this encounter
--- OUTSIDE RECORDS SUMMARY | 2022-04-27 08:17 | XMS_ITS | Encounter Summary ---
:1945 Author Organization [facility] [place] [address] Care Team Providers Name Role Phone Lovely Vicente MD Primary Care Provider Reason for Visit Reason Comments Foot Ulcer WOUND CHECK Auth/Cert Specialty Diagnoses / Procedures Referred By Contact Refer red To Contact Diagnoses Critical lower limb ischemia CELLULITIS RT FOOT Procedures EMERGENCY Referral ID Status Reason Start Date Expiration Date Visits Requ ested Visits Authorized [id number] 1 1 Encounter Details Date Type Department Care Team Description 08/06/2017 [facility] lower limb [facility] ischemia [facility] [address] [place], [place] VASCULAR SURGERY [address] [place] [address] [phone] Social History Tobacco Use Types Packs/Day Years [...] MD - 08/06/2017 1:00 PM EST [facility] staff: 1. RIGHT leg CLI Interval [...] [facility] Dr [place], [place] [address] (Wo ) 05/28/2022 Laboratory Appointment Lab 05/28/2022 Office Visit Cardiology Zulma Dolan MD [facility] [place] [address] iLz Poole PA [facility] [place] [address] 06/10/2022 Office Visit Dermatology Laura Scherer MD [facility] ER DR [address] [place], [place] [address] (Wo rk) documented as of this encounter Visit Diagnoses Diagnosis Critical lower limb ischemia Unspecified circulatory system disorder documented in this encounter Care Teams Barbering Teacher Relationship Specialty Start Date End Date Lovely Vicente MD PCP - General 04/16/[address] [place], [place] [address] documented as of this encounter
--- OUTSIDE RECORDS SUMMARY | 2022-04-27 08:17 | XMS_ITS | Encounter Summary ---
:1945 Author Organization [facility] [place] [address] Care Team Providers Name Role Phone Lovely Vicente MD Primary Care Provider Reason for Visit Auth/Cert Specialty Diagnoses / Procedures Referred By Contact Refer red To Contact Diagnoses Critical lower limb ischemia CELLULITIS RT FOOT Procedures EMERGENCY Referral ID Status Reason Start Date Expiration Date Visits Requ ested Visits Authorized [id number] 1 1 Encounter Details Date Type Department Care Team Description 08/04/2017 Office Visit Cardiology at [facility] Danette Maxwell Incisional pain; [facility] A, PRESS SECRETARY Ischemic cardiomyopathy; [facility] ASCVD (arteriosclerotic card iovascular disease); [place], [place] Systolic heart failure, unspecified hear t failure chronicity [phone] CARDIOLOGY [phone] [place], [place] [address] Social History Tobacco Use Types [...] this encounter Progress Notes Danette Maxwell, PRESS SECRETARY - 08/04/2017 3:00 PM EST ID and [...] 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 [...] Zulma Dolan MD [facility] [address] [place], [place] [address] (Wo rk) 05/28/2022 Laboratory Appointment Lab 05/28/2022 Office Visit Cardiology Zulma Dolan MD [facility] [place] [address] Liz Poole PA [facility] [place] [address] 06/10/2022 Office Visit Dermatology Laura Scherer MD [facility] [address] [place], [place] [address] (Wo rk) documented as of [...] sensation documented in this encounter Care Teams Asphalt Machine Operator Relationship Specialty Start Date End Date Lovely Vicente MD PCP - General 04/16/[address] [place] [address] documented as of this encounter
--- OUTSIDE RECORDS SUMMARY | 2022-04-27 08:17 | XMS_ITS | Encounter Summary ---
:1945 Author Organization [facility] [place] [address] Care Team Providers Name Role Phone Lovely Vicente MD Primary Care Provider Reason for Visit Auth/Cert Specialty Diagnoses / Procedures Referred By Contact Refer red To Contact Diagnoses Critical lower limb ischemia CELLULITIS RT FOOT Procedures EMERGENCY Referral ID Status Reason Start Date Expiration Date Visits Requ ested Visits Authorized [id number] 1 1 Encounter Details Date Type Department Care Team Description 08/06/2017 Hospital Encounter [facility]ascular [facility] at [facility] [place] [address] Social History Tobacco Use Types Packs/Day [...] Zulma Dolan MD [facility] [address] [place], [place] [address] (Wo rk) 05/28/2022 Laboratory Appointment Lab 05/28/2022 Office Visit Cardiology Zulma Dolan MD [facility] [place] [address] Liz Poole PA [facility] [place] [address] 06/10/2022 Office Visit Dermatology Laura Scherer MD [facility] [address] [place], [place] [address] (Wo rk) documented as of this encounter Visit Diagnoses Not on filedocumented in this encounter Care Teams Kiln Operator Helper Relationship Specialty Start Date End Date Lovely Vicente MD PCP - General 04/16/[address] [place] [address] documented as of this encounter
--- OUTSIDE RECORDS SUMMARY | 2022-04-27 08:17 | XMS_ITS | Encounter Summary ---
:1945 [place] [address] Care Team Providers Name Role Phone Lovely Vicente MD Primary Care Provider Encounter Details Date Type Department Care Team Description 08/03/2017 Hospital Encounter Radiology Library at [place], Tommy Mijares [facility] [place] [address] VASCULAR SURGERY [phone] [place], [place] [address] (Wo rk) Social History Tobacco [...] Dolan MD [facility] Dr [place], [place] [address] (Wo rk) 05/28/2022 Laboratory Appointment Lab 05/28/2022 Office Visit Cardiology Zulma Dolan MD [facility] [place] [address] Liz Poole PA [facility] [place] [address] 06/10/2022 Office Visit Dermatology Laura Scherer MD [facility] [address] [place]LOG[place], [place] [address] (Wo rk) documented as of [...] Received Time / Laterality Volume Narrative [facility] - 08/03/2017 6:03 PM EST This exam is for storage only and is aut o-finalizing. Arik Clement MD G FILM LIBRARY ORDERABLES Performing Organization Address City/State/ZIP Code Phon e Number [place], [place] documented in this encounter Visit Diagnoses Diagnosis Pain Generalized pain documented in this encounter Care Teams R D Intern Relationship Specialty Start Date End Date Lovely Vicente MD PCP - General 04/16/[address] [place] [address] documented as of this encounter
--- OUTSIDE RECORDS SUMMARY | 2022-04-27 08:17 | XMS_ITS | Encounter Summary ---
:1945 Author Organization [facility] [place] [address] Care Team Providers Name Role Phone Lovely Vicente MD Primary Care Provider Encounter Details Date Type Department Care Team Description 08/02/2017 Telephone Pain Management at [place], [place] [address] Social History Tobacco Use Types Packs/Day [...] Management Center Preauthorization Request Patient: Don Fatima [id number] Fax received from [facility] requesting we obtain prior authorization for Lidocaine patches prescribed by Barbra Soares APRN. RX insurance plan: [employer] insurance telephone: [phone] Patient Diagnosis: right foot pain secondary to PVD and ischemia Previous medications attempted: Tylenol, Tramadol, Dilaudid The following action was taken after discussion with the tanker service attendant: _x_ pharmacy informed Authorized dosage or amount: 5% on patch on for 12 hours, then remove for 12 hours. Angeles Rodrigez, RN documented in this encounter Plan of Treatment Upcoming Encounters Date Type Specialty Care Team Description 05/28/2022 Appointment Cardiology Zulma Dolan MD [facility] [place], [place] [address] (Wo rk) 05/28/2022 Laboratory Appointment Lab 05/28/2022 Office Visit Cardiology Zulma Dolan [place] [address] Liz Poole PA [facility] [place] [address] 06/10/2022 Office Visit Dermatology Laura Scherer MD [facility] [address] [place], [place] [address] (Wo rk) documented as of this encounter Visit Diagnoses Not on filedocumented in this encounter Care Teams Emergency Medical Tech Relationship Specialty Start Date End Date Lovely Vicente MD PCP - General 04/16/[address] [place] [address] documented as of this encounter
--- OUTSIDE RECORDS SUMMARY | 2022-04-27 08:17 | XMS_ITS | Encounter Summary ---
:1945 Author Organization [facility] [place] [address] Care Team Providers Name Role Phone Lovely Vicente MD Primary Care Provider Reason for Visit Auth/Cert Specialty Diagnoses / Procedures Referred By Contact Refer red To Contact Diagnoses Critical lower limb ischemia CELLULITIS RT FOOT Procedures EMERGENCY Referral ID Status Reason Start Date Expiration Date Visits Requ ested Visits Authorized [id number] 1 1 Encounter Details Date Type Department Care Team Description 08/04/2017 Laboratory Appointment Lab 3L [facility] [place] [address] Social History Tobacco Use Types Packs/Day [...] MD [facility] er [address] [place] [address] (Wo rk) 05/28/2022 Laboratory Appointment Lab 05/28/2022 Office Visit Cardiology Zulma Dolan MD [facility] [place] [address] Liz Poole PA [facility] [place] [address] 06/10/2022 Office Visit Dermatology Laura Scherer MD [facility] [address] [place], [place] [address] (Wo rk) documented as of this encounter Visit Diagnoses Not on filedocumented in this encounter Care Teams Car And Yard Supervisor Relationship Specialty Start Date End Date Lovely Vicente MD PCP - General 04/16/15 [facility] [address] [place], [place] [address] documented as of this encounter
--- OUTSIDE RECORDS SUMMARY | 2022-04-27 08:17 | XMS_ITS | Encounter Summary ---
:1945 Author Organization [facility] [place] [address] Care Team Providers Name Role Phone Lovely Vicente MD Primary Care Provider Reason for Visit Auth/Cert Specialty Diagnoses / Procedures Referred By Contact Refer red To Contact Diagnoses Critical lower limb ischemia CELLULITIS RT FOOT Procedures EMERGENCY Referral ID Status Reason Start Date Expiration Date Visits Requ ested Visits Authorized [id number] 1 1 Encounter Details Date Type Department Care Team Description 08/06/2017 Clinical Support [place] [facility] [facility] [place] [address] Social History Tobacco Use Types Packs/Day [...] noother symptoms except severe right foot pain. [facility] clinic called as pt on [...] Dolan MD [facility] [address] [place], [place] [address] (Wo rk) 05/28/2022 Laboratory Appointment Lab 05/28/2022 Office Visit Cardiology Zulma Dolan MD [facility] [place] [address] Liz Poole PA [facility] [place] [address] 06/10/2022 Office Visit Dermatology Laura Scherer MD [facility] [address] [place], [place] [address] (Wo rk) documented as [...] 444 ms MUSE SYSTEM (Bezet) Calculated P [place] 44 degrees MUSE SYSTEM Calculated R [place] -31 degrees MUSE SYSTEM Calculated T [place] 106 degrees MUSE SYSTEM INTERPRETATION Normal sinus [...] disorder documented in this encounter Care Teams Cytotechnologist/Cytology Supervisor Relationship Specialty Start Date End Date Lovely Vicente MD PCP - General 04/16/[address] [place] [address] documented as of this encounter
--- OUTSIDE RECORDS SUMMARY | 2022-04-27 08:17 | XMS_ITS | Encounter Summary ---
:1945 [place] [address] Care Team Providers Name Role Phone Lovely Vicente MD Primary Care Provider Encounter Details Date Type Department Care Team Description 08/04/2017 Notes Only Cardiac Surgery Makayla Wilson EMERGENCY MANAGEMENT DIRECTOR [facility] [place] [address] CARDIAC SURGERY [phone] [place], [place] [address] (Wo rk) Social History [...] Zulma Dolan MD [facility] [address] [place], [place] [address] (Wo rk) 05/28/2022 Laboratory Appointment Lab 05/28/2022 Office Visit Cardiology Zulma Dolan MD [facility] [place] [address] Liz Poole PA [facility] [place] [address] 06/10/2022 Office Visit Dermatology Laura Scherer MD [facility] [address] [facility] [place] [place] [address] (Wo rk) documented as of this encounter Visit Diagnoses Not on filedocumented in this encounter Care Teams Typesetting Machine Tender Relationship Specialty Start Date End Date Lovely Vicente MD PCP - General 04/16/[address] [place] [address] documented as of this encounter
--- OUTSIDE RECORDS SUMMARY | 2022-04-27 08:17 | XMS_ITS | Encounter Summary ---
:1945 Author Organization [facility] Address [facility] [place] [address] Care Team Providers Name Role Phone Lovely Vicente MD Primary Care Provider Reason for Visit Auth/Cert Specialty Diagnoses / Procedures Referred By Contact Refer red To Contact Diagnoses Critical lower limb ischemia CELLULITIS RT FOOT Procedures EMERGENCY Referral ID Status Reason Start Date Expiration Date Visits Requ ested Visits Authorized [id number] 1 1 Encounter Details Date Type Department Care Team Description 08/04/2017 Laboratory Lab 3L [facility] Cardiomyopathy, unspecified type; Appointment [facility] Systolic congestive heart failure, unspecified congestive heart failure chronicity; Hospital Coronary artery rupture; [facility] Ischemic cardiomyopathy; Drive Atherosclerosis of [place] co ronary artery, angina presence unspecified, unspecified whether [place] or transplanted heart; [place], [place] Essential hyper tension, malignant; [id number] 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, unspecified intermodal dispatcher insulin use status [phone] Social History Tobacco Use Types Packs/Day Years [...] MD [facility] [address] [place] [address] (Wo rk) 05/28/2022 Laboratory Appointment Lab 05/28/2022 Office Visit Cardiology Zulma Dolan MD [facility] [place] [address] Liz Poole PA [facility] [place] [address] 06/10/2022 Office Visit Dermatology Laura Scherer MD [facility] ER [address] [place], [place] [address] (Wo rk) documented as of this encounter Procedures Procedure Name Priority Date/Time Associated Diagnosis Comme nts HEMOGRAM Routine 08/04/2017 12:55 Essential Results for this PM EST hypertension, procedure are in malignant the results section. PROTHROMBIN TIME Routine 08/04/2017 12:55 Coronary artery Resu lts for this PM EST rupture procedure are in Ischemic the results cardiomyopathy section. Atherosclerosis of [place] coronary artery, angina presence unspecified, unspecified whether [place] or transplanted heart URIC ACID Routine 08/04/2017 [...] Acid 7.1 3.5 - 8.5 [facility] mg/dL [facility] Specimen Anatomical Collection Method Collection Time Receive d Time (Source) Location / / Volume Laterality Blood specimen 08/04/2017 12:55 8 1:01 (specimen) PM EST PM EST Resulting Agency Comment Spec In Lab Lovely Vicente MD CHEMISTRY ORDERABLES Performing Organization Address City/[facility]/[place] [address] (ABNORMAL) Hemogram (08/04/2017 12:55 PM EST) Analysis Performed At Patho logist Time Signature WBC 15.8 (H) 4.0 - 9.5 [facility] x10(3)/[facility] LABORATORY RBC 3.48 (L) 4.58 - [facility] RYAN 5.54 [facility] x10(6)/[facility] LABORATORY Hemoglobin 9.9 (L) 13.7 - [facility] 16.5 gm/dL [facility] Hematocrit 31.4 (L) 40.5 - [facility] 48.5 % [facility] MCV 90.2 82.9 - [facility] 93.1 [facility] LABORATORY MCH 28.4 27.5 - [facility] 32.1 pg [facility] MCHC 31.5 (L) 32.0 - [facility] 35.7 gm/dL [facility] Platelets 310 145 - 357 [facility] x10(3)/[facility] LABORATORY RDWSD 51.8 (H) 36.0 - [facility] 45.0 [facility] LABORATORY RDWCV 15.8 (H) 11.4 - [facility] RYAN 13.8 % [facility] MPV 8.9 7.6 - 12.9 [facility] LABORATORY nRBC % Auto 0.0 % [facility] LABORATORY nRBC Abs Auto 0.000 0.000 - [facility] 0.000 [facility] x10(3)/[facility] LABORATORY Specimen Anatomical Collection Method Collection Time Receive d Time (Source) Location / / Volume Laterality Blood specimen 08/04/2017 12:55 8 1:01 (specimen) PM EST PM EST Resulting Agency Comment Spec In Lab Lovely Vicente MD HEMATOLOGY ORDERABLES Performing Organization Address City/State/[place] [address] (ABNORMAL) Comprehensive metabolic panel (non-fasting) (08/04/2017 12:55 PM EST) athologist Signature Glucose Lvl 208 (H) 65 - 199 [facility] mg/dL [facility] HOSPITAL LABORATORY Estimated GFR 43 (L) >=60 [facility] Comment: The reported eGFR should be multiplied b y 1.2 for patients. The MDRD is not an appropriate measure o f renal function for patients with body mass extremes or in patients with acute kidney failure. http://CBIT A/S/DHnkdep http://CBIT A/S/DHMCnkf Specimen Anatomical Collection Method Collection Time Receive d Time (Source) Location / / Volume Laterality Blood specimen 08/04/2017 12:55 8 1:01 (specimen) PM EST PM EST Resulting Agency Comment Spec In Lab Lovely Vicente MD CHEMISTRY ORDERABLES Performing Organization Address City/State/ZIP Code Phon e Number [place] [phone] [address] (ABNORMAL) Hemoglobin A1c (08/04/2017 [...] into estimated average glucose values. ??Diabetes Care 2008:31(8):9641-2556. Specimen Anatomical Collection Method Collection Time Receive d Time (Source) Location / / Volume Laterality Blood specimen 08/04/2017 12:55 8 1:01 (specimen) PM EST PM EST Resulting Agency Comment Spec In Lab Lovely Vicente MD CHEMISTRY ORDERABLES Performing Organization Address [facility] [place] [address] (ABNORMAL) Prothrombin Time (08/04/2017 [...] Vicente MD HEMATOLOGY ORDERABLES Performing Organization Address [facility] [place] [address] (ABNORMAL) pro-Brain Natriuretic Peptide (08/04/2017 12:55 PM EST) P athologist Signature ProBNP 3,133 (H) <=125 [facility] pg/mL [facility] Specimen Anatomical Collection Method Collection Time Receive d Time (Source) Location / / Volume Laterality Blood specimen 08/04/2017 12:55 8 1:01 (specimen) PM EST PM EST Resulting Agency Comment Spec In Lab Danette Maxwell APRN CHEMISTRY ORDERABLES Performing Organization Address City/State/[place] [address] documented in this encounter [...] underlying cond ition with diabetic nephropathy, unspecified intermodal dispatcher insulin use status documented in this encounter Care Teams Rabble Furnace Tender Relationship Specialty Start Date End Date Lovely Vicente MD PCP - General 04/16/[address] [place] [address] documented as of this encounter
--- OUTSIDE RECORDS SUMMARY | 2022-04-27 08:17 | XMS_ITS | Encounter Summary ---
:1945 Author Organization [facility] [address] Care Team Providers Name Role Phone Lovely Vicente MD Primary Care Provider Encounter Details Date Type Department Care Team Description 08/04/2017 Orders Only Cardiac Surgery Makayla Wilson APRN [facility] [place] [address] CARDIAC SURGERY [phone] [place], [place] [address] (Wo rk) Social History Tobacco [...] Dolan MD [facility] er [address] [place] [address] (Wo rk) 05/28/2022 Laboratory Appointment Lab 05/28/2022 Office Visit Cardiology Zulma Dolan MD [facility] [place] [address] Liz Poole PA [facility] [place] [address] 06/10/2022 Office Visit Dermatology Laura Scherer MD [facility] ER DR [address] [place], [place] [address] (Wo rk) documented as of this encounter Visit Diagnoses Not on filedocumented in this encounter Care Teams Paper Box Maker Relationship Specialty Start Date End Date Lovely Vicente MD PCP - General 04/16/[address] [place] [address] documented as of this encounter
--- OUTSIDE RECORDS SUMMARY | 2022-04-27 08:17 | XMS_ITS | Encounter Summary ---
:1945 Author Organization [facility] [place] [address] Care Team Providers Name Role Phone Lovely Vicente MD Primary Care Provider Reason for Visit Auth/Cert Specialty Diagnoses / Procedures Referred By Contact Refer red To Contact Diagnoses Critical lower limb ischemia CELLULITIS RT FOOT Procedures EMERGENCY Referral ID Status Reason Start Date Expiration Date Visits Requ ested Visits Authorized [id number] 1 1 Encounter Details Date Type Department Care Team Description 08/09/2017 Surgery Main Operating Room Yonathan Smith AM PUTATION, Mary Hitchcock MD TRANSMETATARSAL ([facility] 12.71) [facility] [address] [place] [address] [place] [address] [phone] Social History Tobacco Use Types Packs/Day Years [...] 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 Patient [...] Dorsalis Pedis (Ankle) Artery ?132 ? 0.94 ??Newberry-Biphasic ? Posterior Tibial (Ankle) Artery ??154 ? 1.10 ??Newberry-Biphasic ? Fourth Toe ? 67 ?0.48 ?? [...] For any problems or questions please call [phone] ZELDA Smith, desk operator Nurse Clinician For issues on weeknights after 5pm and weekends please call [phone] and ask for the Vascular Fellow cushion maker hand. General Instructions None Future Appointments and Orders Future Appointments Provider Department Dept Phone 08/26/2017 4:00 PM Aurelia Rivera PA Vascular Surgery at [place] [phone] 09/07/2017 3:00 PM LAB, THREE L Lab 3L [facility] [phone] 09/07/2017 4:00 PM Luz Prescott MD Endocrinology at [place] [phone] 09/09/2017 8:00 AM Barbra Soares APRN Pain Management at [place] [phone] Please bring a list of your current [...] For any problems or questions please call [phone] ZELDA Smith, desk operator Nurse Clinician For issues on weeknights after 5pm and weekends please call [phone] and ask for the Vascular Fellow cushion maker hand. documented in this encounter Medications at [...] Discharge Note Patient Destination: [facility] ([facility]) [address] [id number] Transportation: with (at bedside) Time of Discharge: by 12 noon Level of Care: swing Patient Aware: yes Family Notified: yes Md to call report to: Yissel Quintero BOTTLE BLOWING MACHINE TENDER already called RN to call report to: [phone] Shirin Wolf Office of Care Management Pager [phone] Shirin Wolf RN - 08/16/2017 10:50 AM EST [facility] has offered pt swing bed. Pt and accept bed. will transport via car. BOTTLE BLOWING MACHINE TENDER Yissel Quintero aware; d/c paperwork will be completed by 12 noon. [facility] requests pt arrival by 1400 today; BOTTLE BLOWING MACHINE TENDER, RN, and family aware. BOTTLE BLOWING MACHINE TENDER called [facility] and was told that they prefer pt to arrive with wound vac dressing applied but clamped. BOTTLE BLOWING MACHINE TENDER applied new wound vac dressing. RN has [facility] number to call report. PASSR completed; BOTTLE BLOWING MACHINE TENDER paged to request provider signature in highlighted space. Indigo from [facility] notified via email that home wound vac now cancelled; STORES has picked up from room and order cancelled. Packet started and provided to unit controller. Medicare important message explained to patient, patient signed. Copy provided to patient and signature page to OCM for inclusion in pt EMR. L Radha Powers Yoselin - 08/16/2017 10:34 AM EST Office of Care Management/Global Account Director Patient Name: Gregory Hoang : 1945 Patient has been offered a swing bed at . The patient will be transported by private transportation. No MD to MD report necessary Please call Nursing Report to [phone], ask for caramel cutter machine. Info to accompany patient: Narcotic Prescriptions Copies of Medication Administration Records and IV sheets for past 10 days. Plan: Global Account Director will be available to the patient and Senior Systems Developer-RN and/or Site Planner for further assistance. Patient will be discharged to: [address] [id number] Radha Powers, Global Account Director Mira Truong, VAMSI - 08/15/2017 10:05 PM EST [address] Flores to ask if he wanted to hold metoprolol dose. BP 95/58. OK to hold this dose Courtney Brito - 08/15/2017 3:26 PM EST Office of Care Management(OCM)/Global Account Director(RS)/ D/C Planning re : Patient is [...] status. 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 Vac in place. [...] patient's referral to: [facility] PHONE: [phone] FAX: [phone] CM spoke with RS who said that [...] rehab. Await recommendations from PT. Covering pager #[phone]. 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 Side Gluer Kaitlin Saha, RN Pager #[phone] Payam Rosales - 08/13/2017 2:37 PM EST Power Press Tender Encounter Note Patient Name: Gregory Hoang : [id number] MR#: [id number] Admit Date: 08/06/2017 1:41 PM Hospital Day 7 days Narrative: Visited to introduce and assess acceptance of Power Press Tender services. Pt was awake, alert, oriented and in chair and family was there. Assessment:Patient coping positively with stresses of illness/hospitalization at this time. Pt says that he is hoping to get better and his family was there. Pt says that he has family care and supportand taking one day at time. Intervention and Outcome: Provided emotional support and encouraging presence. 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 A letter describing our affiliations was reviewed with them and theywere educated about their right to choose where referrals are placed. Patient requests referral to [facility]. PHONE: [phone] FAX: [phone]. And Home NPWT (Negative Pressure Wound Therapy) aka wound vac device made available to pt. Serial # confirmed. Reviewed [facility] Proof of Delivery/Assignment of Benefits Statement(POD/AOB) Form w patient or authorized agent signing on behalf of patient. Copy of POD/AOB provided to pt and other copy faxed to [employer] @ fax# [phone] Expected date of discharge: 08/12/2017. 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 Heparin gtt continues to run. [...] : 1945 AGE 72 y.o. 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 Vascular resident cushion maker hand and will forward result to the team prior to rounds. 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 Patient [...] left blue toes with CTA showing R GRANITE CUTTER pseudoaneurysm (now thrombosed) and occluded ATs bilaterally. [...] 2.5x80 5. Completion RLE angiogram 6. L GRANITE CUTTER angiogram 7. 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 - L GRANITE CUTTER angriogram demonstrated: High femoral bifurcation over the proximal half of the femoral head. L GRANITE CUTTER access in the distal L GRANITE CUTTER. - Closure device: Mynx Technical Procedure: The [...] for a 45cm 5F Destination. V18 and [place] and QuickCross catheters were used to select [...] 5F. A stationed picture of the L GRANITE CUTTER was performed as the patient was noted to have a very high bifurcation. Access appeared in the distal R GRANITE CUTTER. Closure and sheath removal was performed with [...] PM EST 1440 report called to 5 hasty nurse Tessa RN documented in this encounter [...] sit/sit to supine -- Bed Mobility Goal, Monterey Level independent -- Bed Mobility Goal, Date [...] days -- Transfer Training Goal, Activity Type lvq-zh-pkrmj/jzfcs-wu-akv -- Transfer Train Goal, [place] Level conditional independence -- Transfer Train Goal, [...] call cabello within reach, Hourly rounding by RN/SEWER SEPARATION DESIGNER. Bed alarm / Chair alarm. Patient-specific fall [...] Operative Note Patient Name: Gregory Hoang : [id number] MR#: [id number] Case Date: 08/09/2017 Surgeon: Surgeon(s) and Role: [...] 2.5x80 5. Completion RLE angiogram 6. L GRANITE CUTTER angiogram 7. Mynx closure Precautions/Restrictions: fall, sternal [...] other (see comments) (or swing bed) Pager: [phone] BASSAM ELIAS, PT 08/14/2017 Inpatient Physical Therapy [...] to Achieve by discharge Gait Training Goal, Monte[place] Level conditional independence;set up required Gait Training [...] choices are: 1- [facility] PHONE: [phone] FAX: [phone] 2- [facility] ([facility]) [address] [place] [address] 3- [facility])([facility]) [address] [place] [address] I have discussed Medicare/Private Insurance [...] RS/CM on Wednesday to follow-up. Covering pager #[phone] for today. Plan of Care - Henrique [...] with additional findings of pseudoaneurysm on R GRANITE CUTTER and bilateral anterior tibial artery occlusions. Was [...] an outpatient once discharged. Have patient call [phone] to set up an appointment. Follow-up: Dermatology will sign-off for now. Please do not hesitate to contact us if you have any questions orconcerns. Impression and Recommendations discussed with primary team on 08/13/2017. Karo Henderson MD Resident in Dermatology Section of Dermatology, Department of Surgery [facility] Pager [phone] Patient seen and evaluated with staff [facility] Supervisor: Halima Cordero MD Section of Dermatology [facility] Level of Resident Supervision: [...] Outcome: Ongoing (Interventions Implemented as Appropriate) 08/12/17 4056 Coping/Psychosocial Plan Of Care Reviewed With patient;spouse [...] 2.5x80 5. Completion RLE angiogram 6. L GRANITE CUTTER angiogram 7. Mynx closure Active Non-Hospital Problems [...] home with home health ([facility] PT&OT) Pager: [phone] YASIR TELLO OT 08/12/2017 Occupational Therapy Rehabilitation [...] 2.5x80 5. Completion RLE angiogram 6. L GRANITE CUTTER angiogram 7. Mynx closure Past Medical History: [...] with 24/7 assistance and maximal services) Pager: [phone] NICHOLAS MORA, PT 08/12/2017 Physical Therapy Rehabilitation [...] sit/sit to supine -- Bed Mobility Goal, Monte[place] Level independent -- Bed Mobility Goal, Outcome Achieved -- goal ongoing Goal: Gait Training Goal Stand Alone Therapy Goal Outcome: Ongoing (Interventions Implemented as Appropriate) 08/11/17 1310 08/12/17 1510 Gait Training Goal Gait Training Goal, Date Established 08/11/17 -- Gait Training Goal, Time to Achieve 5 - 7 days -- Gait Training Goal, [place] Level conditional independence -- Gait Training Goal, [...] days -- Transfer Training Goal, Activity Type fef-rg-ctswu/bfgzi-ie-yel -- Transfer Train Goal, [place] Level conditional independence -- Transfer Training Goal, [...] Operative Note Patient Name: Gregory Hoang : [id number] MR#: [id number] Case Date: 08/11/2017 Surgeon: Surgeon(s) and Role: [...] 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 Completion RLE angiogram 6. L GRANITE CUTTER angiogram 7. Mynx closure He is very [...] Anticipated Discharge Disposition: inpatient rehabilitation facility Pager: [phone] LAWRENCE GONZALEZ, PT 08/11/2017 Physical Therapy Rehabilitation [...] to sit/sit to supine Bed Mobility Goal, [place] Level independent Goal: Gait Training Goal Stand Alone Therapy Goal Outcome: Ongoing (Interventions Implemented as Appropriate) 08/11/17 1310 Gait Training Goal Gait Training Goal, Date Established 08/11/17 Gait Training Goal, Time to Achieve 5 - 7 days Gait Training Goal, [place] Level conditional independence Gait Training Goal, Assist [...] 7 days Transfer Training Goal, Activity Type nkd-uc-vocvi/diaah-zn-gtz Transfer Train Goal, [place] Level conditional independence Plan of David DelloAnnetta [...] call cabello within reach, Hourly rounding by RN/SEWER SEPARATION DESIGNER. Bed alarm / Chair alarm. ? Patient-specific [...] Care Planning: on file Kisha Hoang [facility] [phone] Current Coping/Education/Information Needs: pt and spouse state [...] Health/Prescription Coverage: Primary Insurance: MEDICARE Secondary Insurance: [employer] [place] Prescription Coverage: See above Preferred Pharmacy: [id number] Other: N/A Primary Care Provider: Lovely Vicente MD [phone] Patient/Caregiver Goals of Treatment: Patient plans to [...] of care planning. Kaitlin Saha RN Pager: [phone] Plan of Care - Melba Jaramillo RN [...] Overview Goal: Plan of Care Review 08/08/17 6224 Coping/Psychosocial Plan Of Care Reviewed With patient [...] chair Activity Activity Type -- ambulated in mtaos -- Activity Assistance Provided -- assistance, stand-by [...] call cabello within reach, Hourly rounding by RN/SEWER SEPARATION DESIGNER. Bed alarm / Chair alarm. Patient-specific fall prevention interventions for sensory deficits provided, if applicable: [X] Yes CPG GOAL OUTCOME EVALUATION: Goal: Fall Prevention-Safe Patient Handling Outcome: Ongoing (Interventions Implemented as Appropriate) 08/06/17 1700 08/06/17199908/07/17 2324 Positioning Body Position -- up in chair [...] at bedside and MD TEAM Carrying pager [phone] contacted (via Radio page) and notified of [...] Zulma Dolan MD [facility] [place], [place] [address] (Wo rk) 05/28/2022 Laboratory Appointment Lab 05/28/2022 Office Visit Cardiology Zulma Dolan MD [facility] [place] [address] Liz Poole PA [facility] [place] [address] 06/10/2022 Office Visit Dermatology Laura Scherer MD [facility] [address] [place], [place] [address] (Wo rk) documented as [...] procedure are i n the results section. JULINA, LEGS, MULTIPLE Routine 08/13/2017 7:42 Critical lower [...] 160 65 - 199 [facility] mg/dL [facility] [...] Organization Address City/State/[place] [address] [facility] (ABNORMAL) Differential, Automated (08/16/2017 5:08 AM EST) [facility] Method Time Signature Neutrophils % 73.9 % [facility]ORATORY Neutr Abs (ANC) 5.37 1.70 - [facility] 6.10 [facility] x10(3)/[facility] LABORATORY Lymphocytes % 10.1 % [facility]ORY Lymphocytes Abs 0.7 (L) 0.9 - 3.2 [facility] x10(3)/[facility] LABORATORY Monocytes % 10.1 % [facility] Monocyte Abs 0.7 0.3 - 0.9 [facility] x10(3)/[facility] LABORATORY Eosinophils % 5.1 % [facility] LABORATORY Eosinophils Abs 0.4 0.0 - 0.4 [facility] x10(3)/[facility] LABORATORY Basophils % 0.4 % [facility] LABORATORY Basophils Abs 0.0 0.0 - 0.1 [facility] x10(3)/[facility] LABORATORY Immature [...] Melisa Gran Abs 0.03 0.00 - 0.04 x10(3)/[facility] MAR Y [facility] LABORATORY Specimen Anatomical Collection Method Collection Time Receive d Time (Source) Location / / Volume Laterality Blood specimen 08/16/2017 5:08 AM 018 5:20 (specimen) EST AM EST Resulting Agency Comment Spec In Lab Yonathan Smith MD HEMATOLOGY ORDERABLES Performing Organization Address City/State/[place] [address] [facility] (ABNORMAL) Hemogram (08/16/2017 5:08 AM EST) Analysis Performed At Patho logist Time Signature WBC 7.3 4.0 - 9.5 [facility] x10(3)/[facility] LABORATORY RBC 3.36 (L) 4.58 - [facility] 5.54 [facility] x10(6)/[facility] LABORATORY Hemoglobin 9.7 (L) 13.7 - [facility] 16.5 gm/dL [facility]ORY Hematocrit 30.3 (L) 40.5 - [facility] 48.5 % [facility] LAB[facility]ORY MCV 90.2 82.9 - [facility] 93.1 [facility] LABORATORY MCH 28.9 27.5 - [facility] 32.1 pg [facility] MCHC 32.0 32.0 - [facility] 35.[facility] gm/dL [facility] Platelets 282 145 - 357 [facility] x10(3)/[facility] LABORATORY RDWSD 53.9 (H) 36.0 - [facility] 45.0 [facility] LABORATORY RDWCV 16.5 (H) 11.4 - [facility] 13.8 % [facility] LABORATORY MPV 9.0 7.6 - 12.9 [facility] LABORATORY nRBC % Auto 0.0 % [facility] LABORATORY nRBC Abs Auto 0.000 0.000 - [facility] 0.000 [facility] x10(3)/[facility] LABORATORY Specimen Anatomical Collection Method Collection Time Receive d Time (Source) Location / / Volume Laterality Blood specimen 08/16/2017 5:08 AM 018 5:20 (specimen) EST AM EST Resulting Agency Comment Spec In Lab Yonathan Smith MD HEMATOLOGY ORDERABLES Performing Organization Address City/State/[place] [address] (ABNORMAL) Basic Metabolic Panel (non-fasting) (08/16/2017 5:08 AM EST) P athologist Signature Glucose Lvl 141 65 - 199 [facility] mg/dL [facility] LABORATORY [...] or in patients with acute kidney failure. [email or web address] [email or web address] Specimen Anatomical Collection Method Collection Time Receive d Time (Source) Location / / Volume Laterality Blood specimen 08/16/2017 5:08 AM 018 5:20 (specimen) EST AM EST Resulting Agency Comment Spec In Lab Yonathan Smith MD CHEMISTRY ORDERABLES Performing Organization Address City/State/[place] [address] (ABNORMAL) Prothrombin Time (08/16/2017 [...] Smith MD HEMATOLOGY ORDERABLES Performing Organization Address City/[facility]/ZIP Code Phon e Number [address] POCT Glucose (08/16/2017 4:09 AM EST) athologist Signature POC Glucose 147 65 - 199 [facility] RYAN mg/dL [facility]ORY Comment: Supplemental ranges: <140 mg/dL before meals <180 mg/dL all other times of the day Specimen Anatomical Collection Method Collection Time Receive d Time (Source) Location / / Volume Laterality Blood specimen 08/16/2017 4:09 AM 018 4:09 (specimen) EST AM EST Yonathan Smith MD POINT OF CARE TEST ORDERABLE S Performing Organization Address City/[facility]/ZIP Code Phon e Number [address] POCT Glucose (08/15/2017 11:56 [...] CARE TEST ORDERABLE S Performing Organization Address City/[facility]/ZIP Code Phon e Number [address] POCT Glucose (08/15/2017 8:05 PM EST) athologist Signature POC Glucose 136 65 - 199 [place]AN mg/dL [facility] [...] Address City/State/Z[place] [address] (ABNORMAL) POCT Glucose (08/15/2017 [...] Address City/State/ZIP [place] [address] POCT Glucose (08/15/2017 12:04 PM EST) athologist Signature POC Glucose 135 65 - 199 [place] mg/dL [facility] Comment: [...] Address City/State/ZIP [place] [address] POCT Glucose (08/15/2017 7:36 AM EST) athologist Signature POC Glucose 124 65 - 199 BAR[place] ZHAORYAN mg/dL [facility]ORY Comment: [...] Organization Address City/State/[place] [address] (ABNORMAL) Differential, Automated (08/15/2017 6:22 AM EST) [facility] Method Time Signature Neutrophils % 76.1 % [facility] LABORATORY Neutr Abs (ANC) 6.62 (H) 1.70 - [facility] 6.10 [facility] x10(3)/[facility] LABORATORY Lymphocytes % 9.3 % [facility] LABORATORY Lymphocytes Abs 0.8 (L) 0.9 - 3.2 [facility] x10(3)/[facility] LABORATORY Monocytes % 9.4 % [facility] LABORATORY Monocyte Abs 0.8 0.3 - 0.9 [facility] x10(3)/[facility] LABORATORY Eosinophils % 4.0 % [facility] LABORATORY Eosinophils Abs 0.4 0.0 - 0.4 [facility] x10(3)/[facility] LABORATORY Basophils % 0.6 % [facility] LABORATORY Basophils Abs 0.0 0.0 - 0.1 [facility] x10(3)/[facility] LABORATORY Immature Gran % 0.60 [...] Smith MD HEMATOLOGY ORDERABLES Performing Organization Address City/[facility]/ZIP Code Phon e Number [address] (ABNORMAL) Hemogram (08/15/2017 6:22 AM EST) Analysis Performed At Patho logist Time Signature WBC 8.7 4.0 - 9.5 [facility] x[facility](3[facility] LABORATORY RBC 3.21 (L) 4.58 - BAR[place]A RYAN 5.54 [facility] x10(6)/[facility] [facility] Hemoglobin 9.1 (L) 13.7 - [facility] gm/dL [facility] Hematocrit 29.0 (L) 40.5 - [facility] 48.5 % [facility] MCV 90.3 82.9 - [facility] 93.1 [facility] LABORATORY MCH 28.3 27.5 - [facility] RYAN 32.1 pg [facility] MCHC 31.4 (L) 32.0 - [facility] 35.7 gm/dL [facility] Platelets 254 145 - 357 [facility] x10(3)/[facility] LABORATORY RDWSD 53.9 (H) 36.0 - [facility] RYAN 45.0 [facility] LABORATORY RDWCV 16.3 (H) 11.4 - [facility] RYAN 13.8 % [facility]ORATORY MPV 8.8 7.6 - 12.9 [facility] LABORATORY nRBC % Auto 0.0 % [facility] LABORATORY nRBC Abs Auto 0.000 0.000 - [facility] RYAN 0.000 [facility] x10(3)/[facility] LABORATORY Specimen Anatomical Collection Method Collection Time Receive d Time (Source) Location / / Volume Laterality Blood specimen 08/15/2017 6:22 AM 018 6:33 (specimen) EST AM EST Resulting Agency Comment Spec In Lab Yonathan Smith MD HEMATOLOGY ORDERABLES Performing Organization Address City/State/ZIP Code Phon e Number [facility] [place] [address] (ABNORMAL) Basic Metabolic Panel (non-fasting) (08/15/2017 6:22 AM EST) P athologist Signature Glucose Lvl 118 65 - 199 [facility] mg/dL [facility] LABORATORY [...] or in patients with acute kidney failure. [email or web address] Specimen Anatomical Collection Method Collection Time Receive d Time (Source) Location / / Volume Laterality Blood specimen 08/15/2017 6:22 AM 018 6:33 (specimen) EST AM EST Resulting Agency Comment Spec In Lab Yonathan Smith MD CHEMISTRY ORDERABLES Performing Organization Address City/State/ZIP Code Phon e Number [address] (ABNORMAL) Prothrombin Time (08/15/2017 [...] Address City/State/ZIP Code Phon e Number [address] POCT Glucose (08/15/2017 4:33 AM EST) athologist Signature POC Glucose 164 65 - 199 [facility] mg/dL [facility] Comment: [...] Address City/State/ZIP Code Phon e Number [address] POCT Glucose (08/15/2017 12:12 AM EST) athologist Signature POC Glucose 89 65 - 199 [facility] mg/dL [facility] Comment: [...] Address City/State/ZIP Code Phon e Number [address] (ABNORMAL) POCT Glucose (08/14/2017 8:07 PM EST) athologist Signature POC Glucose 204 (H) 65 - 199 [facility] mg/dL [facility] Comment: Supplemental ranges: <140 mg/dL before meals <180 mg/dL all other times of the day Specimen Anatomical Collection Method Collection Time Receive d Time (Source) Location / / Volume Laterality Blood specimen 08/14/2017 8:07 PM 018 8:07 (specimen) EST PM EST Yonathan Smith MD POINT OF CARE TEST ORDERABLE S Performing Organization Address City/[facility]/ZIP [place] [address] POCT Glucose (08/14/2017 5:11 PM EST) athologist Signature POC Glucose 174 65 - 199 [facility] mg/dL [facility] Comment: [...] Address City/State/Z[place] [address] POCT Glucose (08/14/2017 12:10 PM EST) athologist Signature POC Glucose 141 65 - 199 [facility] mg/dL [facility] [...] Address City/State/ZIP Code Phon e Number [address] POCT Glucose (08/14/2017 8:07 AM EST) P athologist Signature POC Glucose 158 65 - 199 [facility] mg/dL [facility] LABORATORY [...] Address City/State/ZIP Code Phon e Number [address] (ABNORMAL) Differential, Automated (08/14/2017 4:52 AM EST) Patholo gist Method Time Signature Neutrophils % 78.6 % [facility] LABORATORY Neutr Abs (ANC) 7.70 (H) 1.70 - [facility] 6.10 [facility] x10(3)/[facility] LABORATORY Lymphocytes % 7.8 % [facility] LABORATORY Lymphocytes Abs 0.8 (L) 0.9 - 3.2 [facility] x10(3)/[facility] LABORATORY Monocytes % 8.8 % [facility] LABORATORY Monocyte Abs 0.9 0.3 - 0.9 [facility] x10(3)/[facility] LABORATORY Eosinophils % 4.0 % [facility] LABORATORY Eosinophils Abs 0.4 0.0 - 0.4 [facility] x10(3)/[facility] LABORATORY Basophils % 0.5 % [facility] LABORATORY Basophils Abs 0.0 0.0 - 0.1 [facility] x10(3)/[facility] [...] Melisa Gran Abs 0.03 0.00 - 0.04 x10(3)/[facility] MAR Y [facility] LABORATORY Specimen Anatomical Collection Method Collection Time Receive d Time (Source) Location / / Volume Laterality Blood specimen 08/14/2017 4:52 AM 018 5:08 (specimen) EST AM EST Resulting Agency Comment Spec In Lab Yonathan Smith MD HEMATOLOGY ORDERABLES Performing Organization Address City/State/[place] [address] (ABNORMAL) Hemogram (08/14/2017 4:52 AM EST) Analysis Performed At Patho logist Time Signature WBC 9.8 (H) 4.0 - 9.5 [facility] x10(3)/[facility] LABORATORY RBC 3.32 (L) 4.58 - [facility] 5.54 [facility] x10(6)/[facility] LABORATORY Hemoglobin 9.5 (L) 13.7 - [facility] 16.5 gm/dL [facility] Hematocrit 30.3 (L) 40.5 - [facility] 48.5 % [facility]ORATORY MCV 91.3 82.9 - [facility] 93.1 [facility] LABORATORY MCH 28.6 27.5 - [facility] 32.1 pg [facility]ATORY MCHC 31.4 (L) 32.0 - [facility] 35.7 gm/dL [facility] Platelets 263 145 - 357 [facility] x10(3)/[facility] LABORATORY RDWSD 54.8 (H) 36.0 - [facility] 45.0 [facility] LABORATORY RDWCV 16.5 (H) 11.4 - [facility] 13.8 % [facility] LABORATORY MPV 9.1 7.6 - 12.9 [facility] LABORATORY nRBC % Auto 0.0 % [facility] LABORATORY nRBC Abs Auto 0.000 0.000 - [facility] 0[facility]000 [facility] x10(3)/[facility] LABORATORY Specimen Anatomical Collection Method Collection Time Receive d Time (Source) Location / / Volume Laterality Blood specimen 08/14/2017 4:52 AM 018 5:08 (specimen) EST AM EST Resulting Agency Comment Spec In Lab Yonathan Smith MD HEMATOLOGY ORDERABLES Performing Organization Address City/[facility]/ZIP [place] [address] (ABNORMAL) Prothrombin Time (08/14/2017 [...] Smith MD HEMATOLOGY ORDERABLES Performing Organization Address City/[facility]/ZIP [place] [address] (ABNORMAL) Basic Metabolic Panel (non-fasting) (08/14/2017 4:52 AM EST) athologist Signature Glucose Lvl 135 65 - 199 [facility] mg/dL [facility] LABORATORY [...] or in patients with acute kidney failure. [email or web address] Specimen Anatomical Collection Method Collection Time Receive d Time (Source) Location / / Volume Laterality Blood specimen 08/14/2017 4:52 AM 018 5:08 (specimen) EST AM EST Resulting Agency Comment Spec In Lab Yonathan Smith MD CHEMISTRY ORDERABLES Performing Organization Address City/[facility]/ZIP Code Phon e Number [address] POCT Glucose (08/14/2017 3:56 AM EST) P athologist Signature POC Glucose 135 65 - 199 [facility] mg/dL [facility] Comment: Supplemental ranges: <140 mg/dL before meals <180 mg/dL all other times of the day Specimen Anatomical Collection Method Collection Time Receive d Time (Source) Location / / Volume Laterality Blood specimen 08/14/2017 3:56 AM 018 3:56 (specimen) EST AM EST Yonathan Smith MD POINT OF CARE TEST ORDERABLE S Performing Organization Address City/[facility]/ZIP [place] [address] POCT Glucose (08/13/2017 11:13 PM EST) athologist Signature POC Glucose 118 65 - 199 [facility] mg/dL [facility] [...] Address City/State/ZIP [place] [address] (ABNORMAL) POCT Glucose (08/13/2017 8:08 PM EST) athologist Signature POC Glucose 204 (H) 65 - 199 [facility] mg/dL [facility] LABORATORY Comment: [...] Address City/State/ZIP [place] [address] POCT Glucose (08/13/2017 4:02 PM EST) athologist Signature POC Glucose 145 65 - 199 [facility] mg/dL [facility] [...] Address City/State/ZIP [place] [address] POCT Glucose (08/13/2017 11:31 AM EST) athologist Signature POC Glucose 179 65 - 199 [facility] mg/dL [facility] Comment: Supplemental ranges: <140 mg/dL before meals <180 mg/dL all other times of the day Specimen Anatomical Collection Method Collection Time Receive d Time (Source) Location / / Volume Laterality Blood specimen 08/13/2017 11:31 8 (specimen) AM EST 11:31 AM EST Yonathan Smith MD POINT OF CARE TEST ORDERABLE S Performing Organization Address City/[facility]/ZIP [place] [address] (ABNORMAL) POCT Glucose (08/13/2017 10:16 AM EST) athologist Signature POC Glucose 211 (H) 65 - 199 [facility] mg/dL [facility] Comment: Supplemental ranges: <140 mg/dL before meals <180 mg/dL all other times of the day Specimen Anatomical Collection Method Collection Time Receive d Time (Source) Location / / Volume Laterality Blood specimen 08/13/2017 10:16 8 (specimen) AM EST 10:16 AM EST Yonathan Smith MD POINT OF CARE TEST ORDERABLE S Performing Organization Address City/[facility]/ZIP [place] [address] JULIAN, legs, multiple levels (08/13/2017 7:42 AM EST) Component Value Ref Test Analysis [facility] Method Time Signature VB Text Department: Vascular Surgery Lab VASCUBASE Report Patient: [id number] (GREGORY HOANG) CPT: 98215 ICD10: I99.8 Referring Physician: YONATHAN SMITH ?? Indications: s/p R 1,2,3 toe amps with red left foot, need n ew baseline Diabetes mellitus: yes ICD10 Diagnosis Code: I99.8 Findings: Right ?Pressure (mm Hg) ?? JULIAN ??Waveform ?TBI ?? Brachial Artery ?138 ? Dorsalis Pedis (Ankle) Arter y ?132 ? 0.94 ??Newberry- Biphasic ? Posterior Tibial (Ankle) Art anila ??154 ? 1.10 ??Newberry-Biphasic ? Fourth Toe ? 67 ? 0.48 [...] 156 65 - 199 [facility] mg/dL [facility] LABORATORY [...] Organization Address City/State/[place] [address] (ABNORMAL) Differential, Automated (08/13/2017 5:33 AM EST) Patholo gist Method Time Signature Neutrophils % 77.8 % [facility] LABORATORY Neutr Abs (ANC) 7.83 (H) 1.70 - [facility] 6.10 [facility] x10(3)/[facility] [place] LABORATORY Lymphocytes % 8.4 % [facility] LABORATORY Lymphocytes Abs 0.8 (L) 0.9 - 3.2 [facility] x10(3)/[facility] LABORATORY Monocytes % 8.3 % [facility] LABORATORY Monocyte Abs 0.8 0.3 - 0.9 [facility] x10(3)/[facility] LABORATORY Eosinophils % 4.6 % [facility] LABORATORY Eosinophils Abs 0.5 (H) 0.0 - 0.4 [facility] x10(3)/[facility] LABORATORY Basophils % 0.5 % [facility] LABORATORY Basophils Abs 0.0 0.0 - 0.1 [facility] x10(3)/[facility] [...] Melisa Gran Abs 0.04 0.00 - 0.04 x10(3)/[facility] LABORATORY Specimen Anatomical Collection Method Collection Time Receive d Time (Source) Location / / Volume Laterality Blood specimen 08/13/2017 5:33 AM 018 6:04 (specimen) EST AM EST Resulting Agency Comment Spec In Lab Yonathan Smith MD HEMATOLOGY ORDERABLES Performing Organization Address City/State/ZIP Code Phon e Number [place] [id number] LAB[address]ORY Drive (ABNORMAL) Hemogram (08/13/2017 5:33 AM EST) Analysis Performed At Patho logist Time Signature WBC 10.1 (H) 4.0 - 9.5 [facility] x10(3)/[facility] LABORATORY RBC 3.21 (L) 4.58 - [facility] 5.54 [facility] x10(6)/[facility] LABORATORY Hemoglobin 9.2 (L) 13.7 - [facility] 16.5 gm/dL [facility] LABORATORY Hematocrit 29.6 (L) 40.5 - [facility] 48.5 % [facility] LABORATORY MCV 92.2 82.9 - [facility] 93.1 [facility] LABORATORY MCH 28.7 27.5 - [facility] 32.1 pg [facility] LABORATORY MCHC 31.1 (L) 32.0 - [facility] 35.[facility] gm/dL [facility] LABORATORY Platelets 263 145 - 357 [facility] x10(3)/[facility] LABORATORY RDWSD 54.8 (H) 36.0 - [facility] 45[facility]0 [facility] LABORATORY RDWCV 16.4 (H) 11.4 - [facility] 13.8 % [facility] LABORATORY MPV 9.2 7.6 - 12.9 [facility] LABORATORY nRBC % Auto 0.0 % [facility] LABORATORY nRBC Abs Auto 0.000 0.000 - [facility] 0.000 [facility] x10(3)/[facility] LABORATORY Specimen Anatomical Collection Method Collection Time Receive d Time (Source) Location / / Volume Laterality Blood specimen 08/13/2017 5:33 AM 018 6:04 (specimen) EST AM EST Resulting Agency Comment Spec In Lab Yonathan Smith MD HEMATOLOGY ORDERABLES Performing Organization Address City/State/[place] [address] (ABNORMAL) Prothrombin Time (08/13/2017 [...] Organization Address City/State/[place] [address] (ABNORMAL) Basic Metabolic Panel (non-fasting) (08/13/2017 5:33 AM EST) P athologist Signature Glucose Lvl 126 65 - 199 [facility] mg/dL [facility] LABORATORY [...] or in patients with acute kidney failure. [email or web address] Specimen Anatomical Collection Method Collection Time Receive d Time (Source) Location / / Volume Laterality Blood specimen 08/13/2017 5:33 AM 018 6:04 (specimen) EST AM EST Resulting Agency Comment Spec In Lab Yonathan Smith MD CHEMISTRY ORDERABLES Performing Organization Address City/State/ZIP Code Phon e Number [address] POCT Glucose (08/13/2017 4:29 AM EST) athologist Signature POC Glucose 111 65 - 199 [facility] mg/dL [facility] [...] CARE TEST ORDERABLE S Performing Organization Address City/[facility]/ZIP [place] [address] POCT Glucose (08/12/2017 11:28 [...] CARE TEST ORDERABLE S Performing Organization Address City/[facility]/ZIP Code Phon e Number [address] (ABNORMAL) POCT Glucose (08/12/2017 [...] Address City/State/ZIP Code Phon e Number [address] POCT Glucose (08/12/2017 4:24 PM EST) athologist Signature POC Glucose 161 65 - 199 [facility] mg/dL [facility] [...] Address City/State/ZIP Code Phon e Number [address] POCT Glucose (08/12/2017 12:00 PM EST) athologist Signature POC Glucose 167 65 - 199 [facility] mg/dL [facility] [...] Address City/State/ZIP Code Phon e Number [address] POCT Glucose (08/12/2017 7:25 AM EST) athologist Signature POC Glucose 152 65 - 199 [facility] mg/dL [facility] LABORATORY Comment: [...] Organization Address City/State/[place] [address] (ABNORMAL) Differential, Automated (08/12/2017 6:29 AM EST) [facility] Method Time Signature Neutrophils % 78.7 % [facility] LABORATORY Neutr Abs (ANC) 7.94 (H) 1.70 - [facility] 6.10 [facility] x10(3)/[facility] [place] LABORATORY Lymphocytes % 8.8 % [facility] LABORATORY Lymphocytes Abs 0.9 0.9 - 3.2 [facility] x10(3)/[facility] LABORATORY Monocytes % 7.8 % [facility] LABORATORY Monocyte Abs 0.8 0.3 - 0.9 [facility] x10(3)/[facility] LABORATORY Eosinophils % 3.9 % [facility] LABORATORY Eosinophils Abs 0.4 0.0 - 0.4 [facility] x10(3)/[facility] LABORATORY Basophils % 0.3 % [facility] LABORATORY Basophils Abs 0.0 0.0 - 0.1 [facility] x10(3)/[facility] [...] Address City/State/ZIP Code Phon e Number [address] (ABNORMAL) Hemogram (08/12/2017 6:29 AM EST) Analysis Performed At Patho logist Time Signature WBC 10.1 (H) 4.0 - 9.5 [facility](3[facility] LABORATORY RBC 3.02 (L) 4.58 - [facility] 5.54 [facility] x10(6)/[facility] LABORATORY Hemoglobin 8.7 (L) 13.7 - [facility] 16.5 gm/dL [facility] LABORATORY Hematocrit 28.1 (L) 40.5 - [facility] 48.5 % [facility] LABORATORY MCV 93.0 82.9 - [facility] 93.1 [facility] LABORATORY MCH 28.8 27.5 - [facility] 32.1 pg [facility] LABORATORY MCHC 31.0 (L) 32.0 - [facility] 35.7 gm/dL [facility] LABORATORY Platelets 223 145 - 357 [facility] x10(3)/[facility] LABORATORY RDWSD 56.1 (H) 36.0 - [facility] 45.0 [facility] LABORATORY RDWCV 16.4 (H) 11.4 - [facility] RYAN 13.8 % [facility] LABORATORY MPV 9.0 7.6 - 12.9 [facility] LABORATORY nRBC % Auto 0.0 % [facility] LABORATORY nRBC Abs Auto 0.000 0.000 - [facility] 0.000 [facility] x10(3)/[facility] LABORATORY Specimen Anatomical Collection Method Collection Time Receive d Time (Source) Location / / Volume Laterality Blood specimen 08/12/2017 6:29 AM 018 6:38 (specimen) EST AM EST Resulting Agency Comment Spec In Lab Yonathan Smith MD HEMATOLOGY ORDERABLES Performing Organization Address City/State/Z[place] [address] (ABNORMAL) Prothrombin Time (08/12/2017 [...] Address City/State/Z[place] [address] (ABNORMAL) Basic Metabolic Panel (non-fasting) (08/12/2017 6:29 AM EST) athologist Signature Glucose Lvl 151 65 - 199 [facility] mg/dL [facility] LABORATORY [...] or in patients with acute kidney failure. [email or web address] Specimen Anatomical Collection Method Collection Time Receive d Time (Source) Location / / Volume Laterality Blood specimen 08/12/2017 6:29 AM 018 6:38 (specimen) EST AM EST Resulting Agency Comment Spec In Lab Yonathan Smith MD CHEMISTRY ORDERABLES Performing Organization Address City/[facility]/ZIP Code Phon e Number [address] POCT Glucose (08/12/2017 4:08 AM EST) athologist Signature POC Glucose 181 65 - 199 [facility] LABORATORY Comment: [...] Address City/State/ZIP [place] [address] (ABNORMAL) POCT Glucose (08/12/2017 12:17 AM EST) P athologist Signature POC Glucose 221 (H) 65 - 199 [facility] mg/dL [facility] LABORATORY Comment: Supplemental ranges: <140 mg/dL before meals <180 mg/dL all other times of the day Specimen Anatomical Collection Method Collection Time Receive d Time (Source) Location / / Volume Laterality Blood specimen 08/12/2017 12:17 8 (specimen) AM EST 12:17 AM EST Yonathan Smith MD POINT OF CARE TEST ORDERABLE S Performing Organization Address City/[facility]/ZIP Code Phon e Number [address] (ABNORMAL) POCT Glucose (08/11/2017 8:52 PM EST) athologist Signature POC Glucose 221 (H) 65 - 199 [facility] mg/dL [facility] LABORATORY Comment: Supplemental ranges: <140 mg/dL before meals <180 mg/dL all other times of the day Specimen Anatomical Collection Method Collection Time Receive d Time (Source) Location / / Volume Laterality Blood specimen 08/11/2017 8:52 PM 018 8:52 (specimen) EST PM EST Yonathan Smith MD POINT OF CARE TEST ORDERABLE S Performing Organization Address City/[facility]/ZIP [place] [address] POCT Glucose (08/11/2017 5:59 PM EST) athologist Signature POC Glucose 169 65 - 199 [facility] mg/dL [facility] LABORATORY Comment: Supplemental ranges: <140 mg/dL before meals <180 mg/dL all other times of the day Specimen Anatomical Collection Method Collection Time Receive d Time (Source) Location / / Volume Laterality Blood specimen 08/11/2017 5:59 PM 018 5:59 (specimen) EST PM EST Yonathan Smith MD POINT OF CARE TEST ORDERABLE S Performing Organization Address City/[facility]/ZIP [place] [address] (ABNORMAL) POCT Glucose (08/11/2017 [...] Address City/State/ZIP Code Phon e Number [address] POCT Glucose (08/11/2017 12:04 PM EST) athologist Signature POC Glucose 182 65 - 199 [facility] mg/dL [facility] LABORATORY Comment: [...] Address City/State/ZIP Code Phon e Number [address] POCT Glucose (08/11/2017 7:31 AM EST) athologist Signature POC Glucose 156 65 - 199 [facility] mg/dL [facility] LABORATORY Comment: [...] Address City/State/ZIP Code Phon e Number [address] [address]ATORY Drive (ABNORMAL) Differential, Automated (08/11/2017 6:16 AM EST) [facility] gist Method Time Signature Neutrophils % 83.7 % [facility] LABORATORY Neutr Abs (ANC) 10.76 (H) 1.70 - [facility] 6.10 [facility] x10(3)/[facility] [place] LABORATORY Lymphocytes % 6.0 % [facility] LABORATORY Lymphocytes Abs 0.8 (L) 0.9 - 3.2 [facility] x10(3)/[facility] LABORATORY Monocytes % 7.5 % [facility] LABORATORY Monocyte Abs 1.0 (H) 0.3 - 0.9 [facility] x10(3)/[facility] LABORATORY Eosinophils % 2.0 % [facility] LABORATORY Eosinophils Abs 0.3 0.0 - 0.4 [facility] x10(3)/[facility] LABORATORY Basophils % 0.3 % [facility] LABORATORY Basophils Abs 0.0 0.0 - 0.1 [facility] x10(3)/[facility] [...] Organization Address City/State/[place] [address] (ABNORMAL) Hemogram (08/11/2017 6:16 AM EST) Analysis Performed At Patho logist Time Signature WBC 12.9 (H) 4.0 - 9.5 [facility] x10(3)/[facility] LABORATORY RBC 3.28 (L) 4.58 - [facility] 5.54 [facility] x10(6)/[facility] LABORATORY Hemoglobin 9.5 (L) 13.7 - [facility] 16.5 gm/dL [facility] LABORATORY Hematocrit 29.8 (L) 40.5 - [facility] 48.5 % [facility] LABORATORY MCV 90.9 82.9 - [facility] 93.1 [facility] LABORATORY MCH 29.0 27.5 - [place] RYAN 32.1 pg [facility] LABORATORY MCHC 31.9 (L) 32.0 - [place] DAVIS 35.7 gm/dL [facility] LABORATORY Platelets 236 145 - 357 [facility] x10(3)/[facility] LABORATORY RDWSD 53.5 (H) 36.0 - [facility] 45.0 [facility] LABORATORY RDWCV 16.3 (H) 11.4 - [facility] RYAN 13.8 % [facility] LABORATORY MPV 8.8 7.6 - 12.9 [facility] LABORATORY nRBC % Auto 0.0 % [facility] LABORATORY nRBC Abs Auto 0.000 0.000 - [facility] RYAN 0.000 [facility] x10(3)/[facility] LABORATORY Specimen Anatomical Collection Method Collection Time Receive d Time (Source) Location / / Volume Laterality Blood specimen 08/11/2017 6:16 AM 018 6:24 (specimen) EST AM EST Resulting Agency Comment Spec In Lab Yonathan Smtih MD HEMATOLOGY ORDERABLES Performing Organization Address City/State/[place] [address] (ABNORMAL) Prothrombin Time (08/11/2017 [...] Smith MD HEMATOLOGY ORDERABLES Performing Organization Address City/[facility]/ZIP [place] [address] Basic Metabolic Panel (non-fasting) (08/11/2017 6:16 AM EST) athologist Signature Glucose Lvl 139 65 - 199 [facility] mg/dL [facility] LABORATORY [...] or in patients with acute kidney failure. [email or web address] Specimen Anatomical Collection Method Collection Time Receive d Time (Source) Location / / Volume Laterality Blood specimen 08/11/2017 6:16 AM 018 6:24 (specimen) EST AM EST Resulting Agency Comment Spec In Lab Yonathan Smith MD CHEMISTRY ORDERABLES Performing Organization Address City/[facility]/ZIP Code Phon e Number [address] POCT Glucose (08/11/2017 4:07 AM EST) athologist Signature POC Glucose 162 65 - 199 [place] mg/dL [facility] [...] Address City/State/ZIP Code Phon e Number [address] POCT Glucose (08/10/2017 11:59 [...] Address City/State/ZIP [place] [address] POCT Glucose (08/10/2017 8:12 PM EST) athologist Signature POC Glucose 156 65 - 199 [facility] RAYN mg/dL [facility] LABORATORY Comment: [...] Address City/State/ZIP [place] [address] (ABNORMAL) POCT Glucose (08/10/2017 4:42 PM EST) P athologist Signature POC Glucose 211 (H) 65 - 199 [facility] mg/dL [facility] LABORATORY [...] Organization Address City/State/ZIP Code Phon e Number [place] [id number] HOSPITAL LABORATORY Drive (ABNORMAL) Differential, Automated (08/10/2017 2:30 PM EST) Patholo gist Method Time Signature Neutrophils % 87.6 % [facility] LABORATORY Neutr Abs (ANC) 9.90 (H) 1.70 - [facility] 6.10 [facility] x10(3)/[facility] LABORATORY Lymphocytes % 4.3 % [facility] LABORATORY Lymphocytes Abs 0.5 (L) 0.9 - 3.2 [facility] x10(3)/[facility] LABORATORY Monocytes % 6.0 % [facility] LABORATORY Monocyte Abs 0.7 0.3 - 0.9 [facility] x10(3)/[facility] LABORATORY Eosinophils % 1.1 % [facility] LABORATORY Eosinophils Abs 0.1 0.0 - 0.4 [facility] x10(3)/[facility] LABORATORY Basophils % 0.4 % [facility] LABORATORY Basophils Abs 0.0 0.0 - 0.1 [facility] x10(3)/[facility] LABORATORY Immature Gran % 0.60 [...] Organization Address City/State/[place] [address] (ABNORMAL) Hemogram (08/10/2017 2:30 PM EST) Analysis Performed At Patho logist Time Signature WBC 11.3 (H) 4.0 - 9.5 [facility] x10(3)/[facility] LABORATORY RBC 3.13 (L) 4.58 - [facility] 5.54 [facility] x10(6)/[facility] LABORATORY Hemoglobin 8.9 (L) 13.7 - [facility] 16.5 gm/dL [facility] LABORATORY Hematocrit 28.4 (L) 40.5 - [facility] 48.5 % [facility] LABORATORY MCV 90.7 82.9 - [facility] 93.1 [facility] LABORATORY MCH 28.4 27.5 - [facility] 32.1 pg [facility] LABORATORY MCHC 31.3 (L) 32.0 - [facility] 35.[facility] gm/dL [facility] LABORATORY Platelets 213 145 - 357 [facility] x10(3)/[facility] LABORATORY RDWSD 53.7 (H) 36.0 - [facility] RYAN 45.0 [facility] LABORATORY RDWCV 16.4 (H) 11.4 - [facility] RYAN 13.8 % [facility] LABORATORY MPV 8.9 7.6 - 12.9 [facility] LABORATORY nRBC % Auto 0.0 % [facility] LABORATORY nRBC Abs Auto 0.000 0.000 - [facility] RYAN 0.000 [facility] x10(3)/[facility] LABORATORY Specimen Anatomical Collection Method Collection Time Receive d Time (Source) Location / / Volume Laterality Blood specimen 08/10/2017 2:30 PM 018 2:48 (specimen) EST PM EST Resulting Agency Comment Spec In Lab Yonathan Smith MD HEMATOLOGY ORDERABLES Performing Organization Address City/State/ZIP Code Phon e Number [address] (ABNORMAL) POCT Glucose (08/10/2017 1:50 PM EST) athologist Signature POC Glucose 243 (H) 65 - 199 [facility] mg/dL [facility] LABORATORY Comment: Supplemental ranges: <140 mg/dL before meals <180 mg/dL all other times of the day Specimen Anatomical Collection Method Collection Time Receive d Time (Source) Location / / Volume Laterality Blood specimen 08/10/2017 1:50 PM 018 1:50 (specimen) EST PM EST Yonathan Smith MD POINT OF CARE TEST ORDERABLE S Performing Organization Address City/[facility]/ZIP Code Phon e Number [address] POCT Glucose (08/10/2017 11:21 AM EST) athologist Signature POC Glucose 156 65 - 199 [facility] mg/dL [facility] LABORATORY Comment: Supplemental ranges: <140 mg/dL before meals <180 mg/dL all other times of the day Specimen Anatomical Collection Method Collection Time Receive d Time (Source) Location / / Volume Laterality Blood specimen 08/10/2017 11:21 8 (specimen) AM EST 11:21 AM EST Yonathan Smith MD POINT OF CARE TEST ORDERABLE S Performing Organization Address City/[facility]/ZIP [place] [address] (ABNORMAL) Differential, Automated (08/10/2017 10:28 AM EST) [facility] Time Signature Neutrophils % 85.3 % [facility] LABORATORY Neutr Abs (ANC) 9.43 (H) 1.70 - [facility] 6.10 [facility] x10(3)/[facility] LABORATORY Lymphocytes % 5.5 % [facility] LABORATORY Lymphocytes Abs 0.6 (L) 0.9 - 3.2 [facility] x10(3)/[facility] LABORATORY Monocytes % 5.9 % [facility] LABORATORY Monocyte Abs 0.6 0.3 - 0.9 [facility] x10(3)/[facility] LABORATORY Eosinophils % 2.1 % [facility] LABORATORY Eosinophils Abs 0.2 0.0 - 0.4 [facility] x10(3)/[facility] LABORATORY Basophils % 0.4 % [facility] LABORATORY Basophils Abs 0.0 0.0 - 0.1 [facility] x10(3)/[facility] LABORATORY Immature Gran % 0.80 % [...] Organization Address City/State/[place] [address] (ABNORMAL) Hemogram (08/10/2017 10:28 AM EST) Analysis Performed At Patho logist Time Signature WBC 11.0 (H) 4.0 - 9.5 [facility] x10(3)/[facility] LABORATORY RBC 3.02 (L) 4.58 - [facility] 5.54 [facility] x10(6)/[facility] LABORATORY Hemoglobin 8.8 (L) 13.7 - [facility] 16[facility] gm/dL [facility] LABORATORY Hematocrit 28.1 (L) 40.5 - [facility] 48.5 % [facility] LABORATORY MCV 93.0 82.9 - [facility] 93[facility]1 [facility] MCH 29.1 27.5 - [place] 32.1 pg [facility] MCHC 31.3 (L) 32.0 - [place] 35.7 gm/dL [facility] Platelets 207 145 - 357 [facility] x10(3)/[facility] LABORATORY RDWSD 55.3 (H) 36.0 - [place] RY[place] 45.0 [facility] RDWCV 16.4 (H) 11.4 - [facility] RYAN 13.8 % [facility] MPV 9.0 7.6 - 12.9 [facility] LABORATORY nRBC % Auto 0.0 % [facility] nRBC Abs Auto 0.000 0.000 - [facility] RYAN 0.000 [facility] x10(3)/[facility] LABORATORY Specimen Anatomical Collection Method Collection Time Receive d Time (Source) Location / / Volume Laterality Blood specimen 08/10/2017 10:28 8 (specimen) AM EST 10:35 AM EST Resulting Agency Comment Spec In Lab Yonathan Smith MD HEMATOLOGY ORDERABLES Performing Organization Address City/State/[place] [address] VS Angiogram/intervention (vascular) (08/10/2017 [...] 2.5x80 5. Completion RLE angiogram 6. L GRANITE CUTTER angiogram 7. 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 - L GRANITE CUTTER angriogram demonstrated: High fe moral bifurcation over the proximal half of the femoral head. L GRANITE CUTTER access in the distal L GRANITE CUTTER. - Closure device: Mynx Technical Procedure: ?The [...] for a 45cm 5F Destination. V18 and [place] a nd QuickCross catheters were used to [...] bifurcation. Access appeared in the distal R GRANITE CUTTER. Closure and sheath removal was performed with [...] 2.5x80 5. Completion RLE angiogram 6. L GRANITE CUTTER angiogram 7. 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 - L GRANITE CUTTER angriogram demonstrated: High fe moral bifurcation over the proximal half of the femoral head. L GRANITE CUTTER access in the distal L GRANITE CUTTER. - Closure device: Mynx Technical Procedure: The [...] for a 45cm 5F Destination. V18 and [place] a nd QuickCross catheters were used to [...] bifurcation. Access appeared in the distal R GRANITE CUTTER. Closure and sheath removal was performed with [...] (ABNORMAL) Differential, Automated (08/10/2017 5:50 AM EST) [facility] gist Method Time Signature Neutrophils % 80.1 % [facility] LABORATORY Neutr Abs (ANC) 9.01 (H) 1.70 - [facility] 6.10 [facility] x10(3)/[facility] [place] LABORATORY Lymphocytes % 8.8 % [facility] LABORATORY Lymphocytes Abs 1.0 0.9 - 3.2 [facility] x10(3)/[facility] LABORATORY Monocytes % 8.3 % [facility] LABORATORY Monocyte Abs 0.9 0.3 - 0.9 [facility] x10(3)/[facility] LABORATORY Eosinophils % 2.0 % [facility] LABORATORY Eosinophils Abs 0.2 0.0 - 0.4 [facility] x10(3)/[facility] LABORATORY Basophils % 0.4 % [facility] LABORATORY Basophils Abs 0.0 0.0 - 0.1 [facility] x10(3)/[facility] [...] Organization Address City/State/[place] [address] (ABNORMAL) Hemogram (08/10/2017 5:50 AM EST) Analysis Performed At Patho logist Time Signature WBC 11.3 (H) 4.0 - 9.5 [facility] x[facility](3[facility] LABORATORY RBC 3.15 (L) 4.58 - [facility] 5.54 [facility] x10(6)/[facility] LABORATORY Hemoglobin 8.9 (L) 13.7 - [facility] 16[facility] gm/dL [facility] LABORATORY Hematocrit 29.0 (L) 40.5 - [facility] 48.5 % [facility] LABORATORY MCV 92.1 82.9 - [facility] 93.1 [facility] LABORATORY MCH 28.3 27.5 - [facility] RYAN 32.1 pg [facility] LABORATORY MCHC 30.7 (L) 32.0 - [facility] 35.7 gm/dL [facility] LABORATORY Platelets 231 145 - 357 [facility] x10(3)/[facility] LABORATORY RDWSD 53.9 (H) 36.0 - [facility] RYAN 45.0 [facility] LABORATORY RDWCV 16.2 (H) 11.4 - [facility] RYAN 13.8 % [facility] LABORATORY MPV 8.7 7.6 - 12.9 [facility] LABORATORY nRBC % Auto 0.0 % [facility] LABORATORY nRBC Abs Auto 0.000 0.000 - [facility] 0.000 [facility] x10(3)/[facility] LABORATORY Specimen Anatomical Collection Method Collection Time Receive d Time (Source) Location / / Volume Laterality Blood specimen 08/10/2017 5:50 AM 018 5:59 (specimen) EST AM EST Resulting Agency Comment Spec In Lab Yonathan Smith MD HEMATOLOGY ORDERABLES Performing Organization Address City/State/[place] [address] (ABNORMAL) Basic Metabolic Panel (non-fasting) (08/10/2017 5:50 AM EST) athologist Signature Glucose Lvl 135 65 - 199 [facility] mg/dL [facility] LABORATORY [...] or in patients with acute kidney failure. [email or web address] [email or web address] Specimen Anatomical Collection Method Collection Time Receive d Time (Source) Location / / Volume Laterality Blood specimen 08/10/2017 5:50 AM 018 5:59 (specimen) EST AM EST Resulting Agency Comment Spec In Lab Yonathan Smith MD CHEMISTRY ORDERABLES Performing Organization Address City/[facility]/ZIP [place] [address] (ABNORMAL) Prothrombin Time (08/10/2017 [...] Smith MD HEMATOLOGY ORDERABLES Performing Organization Address City/[facility]/ZIP [place] [address] (ABNORMAL) POCT Glucose (08/10/2017 4:01 AM EST) athologist Signature POC Glucose 206 (H) 65 - 199 [facility] mg/dL [facility] LABORATORY Comment: Supplemental ranges: <140 mg/dL before meals <180 mg/dL all other times of the day Specimen Anatomical Collection Method Collection Time Receive d Time (Source) Location / / Volume Laterality Blood specimen 08/10/2017 4:01 AM 018 4:01 (specimen) EST AM EST Yonathan Smith MD POINT OF CARE TEST ORDERABLE S Performing Organization Address City/[facility]/ZIP Code [place] [address] POCT Glucose (08/10/2017 2:01 AM EST) athologist Signature POC Glucose 188 65 - 199 [place] [facility] mg/dL [facility] [...] Address City/State/ZIP [place] [address] (ABNORMAL) POCT Glucose (08/09/2017 11:42 PM EST) athologist Signature POC Glucose 283 (H) 65 - 199 [facility] mg/dL [facility] LABORATORY Comment: [...] Address City/State/ZIP [place] [address] POCT Glucose (08/09/2017 8:55 PM EST) athologist Signature POC Glucose 182 65 - 199 [facility] mg/dL [facility] [...] Address City/State/ZIP [place] [address] (ABNORMAL) APTT (08/09/2017 6:42 [...] Smith MD HEMATOLOGY ORDERABLES Performing Organization Address City/[facility]/ZIP [facility] Phon e Number [address] POCT Glucose (08/09/2017 4:41 PM EST) athologist Signature POC Glucose 195 65 - 199 [facility] mg/dL [facility] LABORATORY Comment: Supplemental ranges: <140 mg/dL before meals <180 mg/dL all other times of the day Specimen Anatomical Collection Method Collection Time Receive d Time (Source) Location / / Volume Laterality Blood specimen 08/09/2017 4:41 PM 018 4:41 (specimen) EST PM EST Yonathan Smith MD POINT OF CARE TEST ORDERABLE S Performing Organization Address City/[facility]/ZIP [place] [address] POCT Glucose (08/09/2017 12:29 PM EST) athologist Signature POC Glucose 140 65 - 199 [facility] mg/dL [facility] LABORATORY Comment: [...] Address City/State/ZIP [place] [address] POCT Glucose (08/09/2017 9:59 AM EST) P athologist Signature POC Glucose 135 65 - 199 [facility] mg/dL [facility] LABORATORY Comment: Supplemental ranges: <140 mg/dL before meals <180 mg/dL all other times of the day Specimen Anatomical Collection Method Collection Time Receive d Time (Source) Location / / Volume Laterality Blood specimen 08/09/2017 9:59 AM 018 9:59 (specimen) EST AM EST Yonathan Smith MD POINT OF CARE TEST ORDERABLE S Performing Organization Address City/[facility]/ZIP [place] [address] Specimen to Pathology (08/09/2017 8:41 AM EST) Specimen Anatomical Collection Method Collection Time Receive d Time (Source) Location / / Volume Laterality AP Specimen 08/09/2017 8:41 AM 8 8:41 EST AM EST Narrative [facility] LABORAT ORY - 08/09/2017 8:41 AM EST Specimen requisition ordered. ??Separate Pathology report to follow Yonathan Smith MD PATHOLOGY/CYTOLOGY ORDERABLE S Performing Organization Address City/[facility]/ZIP [place] [address] Surgical Pathology Report (08/09/2017 8:40 AM EST) Component Value Ref Test Analysis Performed At Patholo gist Range Method Time Signature Surgical [id number] ? Location: [facility]; [facility]; A [facility] Report The signing pathologist has (i) examined [...] [facility] Dept. of Pathology, [place], [place] CLINICAL INFORMATION Specimen Submitted: A - [...] Organization Address City/State/[place] [address] Anaerobic Culture (08/09/2017 8:30 AM EST) [facility] gist Method Time Signature Anaerobic No anaerobic [facility] Culture organisms [facility] LABORATORY Specimen Anatomical Collection Method Collection [...] Address City/State/ZIP [place] [address] (ABNORMAL) Abscess/Wound Aspirate Culture (08/09/2017 8:30 AM EST) Patholo gist Method Time Signature Abscess/Wound Moderate mixed [place] Aspirate bacterial [place] Culture morphotypes [facility] normal LABORATORY cutaneous leroy (A) Gram Stain Rare White Blood Cells [place] Few Gram Positive Cocci in pairs [place] () [facility] LABORATORY Organism Gram Positive [place] Cocci in pairs [place] () [facility] LABORATORY Specimen Anatomical [...] - GENERAL ORDER ROBSON Performing Organization Address City/[facility]/ZIP Code Phon e Number [address] POCT Glucose (08/09/2017 4:28 AM EST) P athologist Signature POC Glucose 128 65 - 199 [facility] mg/dL [facility] LABORATORY Comment: Supplemental ranges: <140 mg/dL before meals <180 mg/dL all other times of the day Specimen Anatomical Collection Method Collection Time Receive d Time (Source) Location / / Volume Laterality Blood specimen 08/09/2017 4:28 AM 018 4:28 (specimen) EST AM EST Yonathan Smith MD POINT OF CARE TEST ORDERABLE S Performing Organization Address City/[facility]/ZIP [place] [address] ABORH Recheck Status (08/09/2017 1:10 AM EST) [facility] gist Method Time Signature ABORH Type Completed [facility] LABORATORY Specimen Anatomical Collection Method Collection Time Receive d Time (Source) Location / / Volume Laterality Blood specimen 08/09/2017 1:10 AM 018 1:35 (specimen) EST AM EST Resulting Agency Comment Spec In Lab Yonathan Smith MD BLOOD BANK ORDERABLES Performing Organization Address City/[facility]/ZIP [place] [address] Antibody screen (08/09/2017 1:10 AM EST) [facility] Method Time Signature Ab Screen Negative [facility] LABORATORY Expires at 08/12/2017 [facility] [id number] on: [facility] LABORATORY Specimen Anatomical Collection Method Collection Time Receive d Time (Source) Location / / Volume Laterality Blood specimen 08/09/2017 1:10 AM 018 1:35 (specimen) EST AM EST Resulting Agency Comment Spec In Lab Yonathan Smith MD BLOOD BANK ORDERABLES Performing Organization Address City/[facility]/ZIP [place] [address] ABO/Rh Typing (08/09/2017 1:10 AM EST) P athologist Signature ABORh Type O Pos [facility] LABORATORY Specimen Anatomical Collection Method Collection Time Receive d Time (Source) Location / / Volume Laterality Blood specimen 08/09/2017 1:10 AM 018 1:35 (specimen) EST AM EST Resulting Agency Comment Spec In Lab Yonathan Smith MD BLOOD BANK ORDERABLES Performing Organization Address City/[facility]/ZIP [place] [address] (ABNORMAL) APTT (08/09/2017 1:10 [...] Organization Address City/State/[place] [address] (ABNORMAL) Differential, Automated (08/09/2017 1:10 AM EST) [facility] gist Method Time Signature Neutrophils % 76.2 % [facility] LABORATORY Neutr Abs (ANC) 8.59 (H) 1.70 - [facility] 6.10 [facility] x10(3)/[facility] [place] LABORATORY Lymphocytes % 11.0 % [facility] LABORATORY Lymphocytes Abs 1.2 0.9 - 3.2 [facility] x10(3)/[facility] LABORATORY Monocytes % 8.4 % [facility] LABORATORY Monocyte Abs 1.0 (H) 0.3 - 0.9 [facility] x10(3)/[facility] LABORATORY Eosinophils % 3.5 % [facility] LABORATORY Eosinophils Abs 0.4 0.0 - 0.4 [facility] x10(3)/[facility] LABORATORY Basophils % 0.5 % [facility] LABORATORY Basophils Abs 0.1 0.0 - 0.1 [facility] x10(3)/[facility] [...] Organization Address City/State/[place] [address] (ABNORMAL) Hemogram (08/09/2017 1:10 AM EST) Analysis Performed At Patho logist Time Signature WBC 11.3 (H) 4.0 - 9.5 [facility] x[facility](3[facility] LABORATORY RBC 3.47 (L) 4.58 - [facility] 5.54 [facility] x10(6)/[facility] LABORATORY Hemoglobin 10.0 (L) 13.7 - [facility] 16.5 gm/dL [facility] LABORATORY Hematocrit 31.9 (L) 40.5 - [facility] 48.5 % [facility] LABORATORY MCV 91.9 82.9 - [facility] 93.1 [facility] LABORATORY MCH 28.8 27.5 - [facility] 32.1 pg [facility] LABORATORY MCHC 31.3 (L) 32.0 - [facility] 35.7 gm/dL [facility] LABORATORY Platelets 234 145 - 357 [facility] x10(3)/[facility] LABORATORY RDWSD 54.0 (H) 36.0 - [facility] 45.0 [facility] LABORATORY RDWCV 16.2 (H) 11.4 - [facility] RYAN 13.8 % [facility] LABORATORY MPV 8.7 7.6 - 12.9 [facility] LABORATORY nRBC % Auto 0.0 % [facility] LABORATORY nRBC Abs Auto 0.000 0.000 - [facility] RYAN 0.000 [facility] x10(3)/[facility] LABORATORY Specimen Anatomical Collection Method Collection Time Receive d Time (Source) Location / / Volume Laterality Blood specimen 08/09/2017 1:10 AM 018 1:19 (specimen) EST AM EST Resulting Agency Comment Spec In Lab Yonathan Smith MD HEMATOLOGY ORDERABLES Performing Organization Address City/State/[place] [address] (ABNORMAL) Prothrombin Time (08/09/2017 [...] Organization Address City/State/ZIP Code Phon e Number [place] [phone] (ABNORMAL) Basic Metabolic Panel (non-fasting) (08/09/2017 1:10 AM EST) athologist Signature Glucose Lvl 108 65 - 199 [facility] mg/dL [facility] LABORATORY [...] or in patients with acute kidney failure. [email or web address] [email or web address] Specimen Anatomical Collection Method Collection Time Receive d Time (Source) Location / / Volume Laterality Blood specimen 08/09/2017 1:10 AM 018 1:19 (specimen) EST AM EST Resulting Agency Comment Spec In Lab Yonathan Smith MD CHEMISTRY ORDERABLES Performing Organization Address City/[facility]/ZIP Code Phon e Number [address] POCT Glucose (08/09/2017 12:05 AM EST) athologist Signature POC Glucose 128 65 - 199 [facility] LABORATORY Comment: Supplemental ranges: <140 mg/dL before meals <180 mg/dL all other times of the day Specimen Anatomical Collection Method Collection Time Receive d Time (Source) Location / / Volume Laterality Blood specimen 08/09/2017 12:05 8 (specimen) AM EST 12:05 AM EST Yonathan Smith MD POINT OF CARE TEST ORDERABLE S Performing Organization Address City/[facility]/ZIP [place] [address] (ABNORMAL) POCT Glucose (08/08/2017 7:36 PM EST) athologist Signature POC Glucose 215 (H) 65 - 199 [facility] mg/dL [facility] LABORATORY Comment: Supplemental ranges: <140 mg/dL before meals <180 mg/dL all other times of the day Specimen Anatomical Collection Method Collection Time Receive d Time (Source) Location / / Volume Laterality Blood specimen 08/08/2017 7:36 PM 018 7:36 (specimen) EST PM EST Yonathan Smith MD POINT OF CARE TEST ORDERABLE S Performing Organization Address City/[facility]/ZIP [place] [address] (ABNORMAL) POCT Glucose (08/08/2017 6:23 PM EST) athologist Signature POC Glucose 216 (H) 65 - 199 [facility] mg/dL [facility] LABORATORY Comment: Supplemental ranges: <140 mg/dL before meals <180 mg/dL all other times of the day Specimen Anatomical Collection Method Collection Time Receive d Time (Source) Location / / Volume Laterality Blood specimen 08/08/2017 6:23 PM 018 6:23 (specimen) EST PM EST Yonathan Smith MD POINT OF CARE TEST ORDERABLE S Performing Organization Address [facility]/ZIP [place] [address] (ABNORMAL) APTT (08/08/2017 6:00 [...] Smith MD HEMATOLOGY ORDERABLES Performing Organization Address City/[facility]/ZIP [place] [address] POCT Glucose (08/08/2017 4:42 PM EST) athologist Signature POC Glucose 78 65 - 199 [facility] mg/dL [facility] [...] Address City/State/ZIP [place] [address] (ABNORMAL) POCT Glucose (08/08/2017 4:01 PM EST) P athologist Signature POC Glucose 58 (L) 65 - 199 [facility] mg/dL [facility] LABORATORY Comment: [...] Address City/State/ZIP [place] [address] POCT Glucose (08/08/2017 11:51 AM EST) P athologist Signature POC Glucose 90 65 - 199 [facility] mg/dL [facility] LABORATORY Comment: Supplemental ranges: <140 mg/dL before meals <180 mg/dL all other times of the day Specimen Anatomical Collection Method Collection Time Receive d Time (Source) Location / / Volume Laterality Blood specimen 08/08/2017 11:51 8 (specimen) AM EST 11:51 AM EST Yonathna Smith MD POINT OF CARE TEST ORDERABLE S Performing Organization Address City/State/ZIP Code Phon e Number [address] (ABNORMAL) APTT (08/08/2017 10:27 [...] Smith MD HEMATOLOGY ORDERABLES Performing Organization Address City/[facility]/ZIP Code Phon e Number [address] POCT Glucose (08/08/2017 8:02 AM EST) athologist Signature POC Glucose 178 65 - 199 [facility] mg/dL [facility] LABORATORY Comment: Supplemental ranges: <140 mg/dL before meals <180 mg/dL all other times of the day Specimen Anatomical Collection Method Collection Time Receive d Time (Source) Location / / Volume Laterality Blood specimen 08/08/2017 8:02 AM 018 8:02 (specimen) EST AM EST Yonathan Smith MD POINT OF CARE TEST ORDERABLE S Performing Organization Address City/[facility]/ZIP [place] [address] (ABNORMAL) APTT (08/08/2017 4:51 AM EST) athologist Signature PTT >160 25 - 35 [facility] (Critical) sec [facility] LABORATORY Comment: Called by: HOWARD, Read back [...] Address City/State/ZIP [place] [address] (ABNORMAL) Differential, Automated (08/08/2017 4:51 AM EST) [facility] Method Time Signature Neutrophils % 77.9 % [facility] LABORATORY Neutr Abs (ANC) 8.17 (H) 1.70 - [facility] 6.10 [facility] x10(3)/[facility] [place] LABORATORY Lymphocytes % 10.3 % [facility] LABORATORY Lymphocytes Abs 1.1 0.9 - 3.2 [facility] x10(3)/[facility] LABORATORY Monocytes % 7.0 % [facility] LABORATORY Monocyte Abs 0.7 0.3 - 0.9 [facility] x10(3)/[facility] LABORATORY Eosinophils % 3.6 % [facility] LABORATORY Eosinophils Abs 0.4 0.0 - 0.4 [facility] x10(3)/[facility] LABORATORY Basophils % 0.5 % [facility] LABORATORY Basophils Abs 0.0 0.0 - 0.1 [facility] x10(3)/[facility] [...] Organization Address City/State/[place] [address] (ABNORMAL) Hemogram (08/08/2017 4:51 AM EST) Analysis Performed At Patho logist Time Signature WBC 10.5 (H) 4.0 - 9.5 [facility] x[facility](3[facility] LABORATORY RBC 3.27 (L) 4.58 - [place] 5.54 [facility] x10(6)/[facility] LABORATORY Hemoglobin 9.3 (L) 13.7 - [facility] 16.5 gm/dL [facility] LABORATORY Hematocrit 30.3 (L) 40.5 - [facility] 48.5 % [facility] LABORATORY MCV 92.7 82.9 - [facility] 93.1 [facility] LABORATORY MCH 28.4 27.5 - [place] 32.1 pg [facility] LABORATORY MCHC 30.7 (L) 32.0 - [facility] RYAN 35.7 gm/dL [facility] LABORATORY Platelets 252 145 - 357 [facility] x10(3)/[facility] LABORATORY RDWSD 54.6 (H) 36.0 - [facility] 45.0 [facility] LABORATORY RDWCV 16.2 (H) 11.4 - [facility] RYAN 13.8 % [facility] LABORATORY MPV 9.1 7.6 - 12.9 [facility] LABORATORY nRBC % Auto 0.0 % [facility] LABORATORY nRBC Abs Auto 0.000 0.000 - [facility] RYAN 0.000 [facility] x10(3)/[facility] LABORATORY Specimen Anatomical Collection Method Collection Time Receive d Time (Source) Location / / Volume Laterality Blood specimen 08/08/2017 4:51 AM 018 5:14 (specimen) EST AM EST Resulting Agency Comment Spec In Lab Yonathan Smith MD HEMATOLOGY ORDERABLES Performing Organization Address City/State/ZIP Code Phon e Number [place] [phone] (ABNORMAL) Prothrombin Time (08/08/2017 [...] Organization Address City/State/[place] [address] (ABNORMAL) Basic Metabolic Panel (non-fasting) (08/08/2017 4:51 AM EST) athologist Signature Glucose Lvl 229 (H) 65 - 199 [facility] mg/dL [facility] LABORATORY [...] or in patients with acute kidney failure. [email or web address] [email or web address]/DHMCnkf Specimen Anatomical Collection Method Collection Time Receive d Time (Source) Location / / Volume Laterality Blood specimen 08/08/2017 4:51 AM 018 5:14 (specimen) EST AM EST Resulting Agency Comment Spec In Lab Yonathan Smith MD CHEMISTRY ORDERABLES Performing Organization Address City/[facility] Phon e Number [address] POCT Glucose (08/08/2017 4:20 AM EST) athologist Signature POC Glucose 193 65 - 199 [facility] mg/dL [facility] LABORATORY Comment: Supplemental ranges: <140 mg/dL before meals <180 mg/dL all other times of the day Specimen Anatomical Collection Method Collection Time Receive d Time (Source) Location / / Volume Laterality Blood specimen 08/08/2017 4:20 AM 018 4:20 (specimen) EST AM EST Yonathan Smith MD POINT OF CARE TEST ORDERABLE S Performing Organization Address City/[facility]/ZIP Code Phon e Number [address] POCT Glucose (08/07/2017 11:11 PM EST) P athologist Signature POC Glucose 124 65 - 199 [facility] mg/dL [facility] LABORATORY Comment: Supplemental ranges: <140 mg/dL before meals <180 mg/dL all other times of the day Specimen Anatomical Collection Method Collection Time Receive d Time (Source) Location / / Volume Laterality Blood specimen 08/07/2017 11:11 8 (specimen) PM EST 11:11 PM EST Yonathan Smith MD POINT OF CARE TEST ORDERABLE S Performing Organization Address City/[facility]/ZIP [place] [address] (ABNORMAL) APTT (08/07/2017 10:18 [...] Smith MD HEMATOLOGY ORDERABLES Performing Organization Address [facility]/ZIP [place] [address] POCT Glucose (08/07/2017 8:10 PM EST) athologist Signature POC Glucose 140 65 - 199 [facility] mg/dL [facility] LABORATORY Comment: Supplemental ranges: <140 mg/dL before meals <180 mg/dL all other times of the day Specimen Anatomical Collection Method Collection Time Receive d Time (Source) Location / / Volume Laterality Blood specimen 08/07/2017 8:10 PM 018 8:10 (specimen) EST PM EST Yonathan Smith MD POINT OF CARE TEST ORDERABLE S Performing Organization Address City/[facility]/ZIP Code Phon e Number [address] POCT Glucose (08/07/2017 5:27 PM EST) athologist Signature POC Glucose 187 65 - 199 [facility] mg/dL [facility] LABORATORY Comment: Supplemental ranges: <140 mg/dL before meals <180 mg/dL all other times of the day Specimen Anatomical Collection Method Collection Time Receive d Time (Source) Location / / Volume Laterality Blood specimen 08/07/2017 5:27 PM 018 5:27 (specimen) EST PM EST Yonathan Smith MD POINT OF CARE TEST ORDERABLE S Performing Organization Address City/[facility]/ZIP Code Phon e Number [address] POCT Glucose (08/07/2017 3:29 PM EST) athologist Signature POC Glucose 86 65 - 199 [facility] mg/dL [facility] LABORATORY Comment: Supplemental ranges: <140 mg/dL before meals <180 mg/dL all other times of the day Specimen Anatomical Collection Method Collection Time Receive d Time (Source) Location / / Volume Laterality Blood specimen 08/07/2017 3:29 PM 018 3:29 (specimen) EST PM EST Yonathan Smith MD POINT OF CARE TEST ORDERABLE S Performing Organization Address [facility] [place] [address] (ABNORMAL) APTT (08/07/2017 2:50 [...] Smith MD HEMATOLOGY ORDERABLES Performing Organization Address City/[facility]/ZIP [facility] [place] [address] (ABNORMAL) POCT Glucose (08/07/2017 2:23 PM EST) athologist Signature POC Glucose 55 (L) 65 - 199 [facility] mg/dL [facility] LABORATORY Comment: [...] Address City/State/ZIP Code Phon e Number [address] POCT Glucose (08/07/2017 12:08 PM EST) P athologist Signature POC Glucose 77 65 - 199 [facility] mg/dL [facility] LABORATORY [...] Address City/State/ZIP [place] [address] (ABNORMAL) Differential, Automated (08/07/2017 7:30 AM EST) Patholo gist Method Time Signature Neutrophils % 73.8 % [facility] LABORATORY Neutr Abs (ANC) 7.17 (H) 1.70 - [facility] 6.10 [facility] x10(3)/[facility] [place] LABORATORY Lymphocytes % 12.2 % [facility] LABORATORY Lymphocytes Abs 1.2 0.9 - 3.2 [facility] x10(3)/[facility] LABORATORY Monocytes % 9.0 % [facility] LABORATORY Monocyte Abs 0.9 0.3 - 0.9 [facility] x10(3)/[facility] LABORATORY Eosinophils % 3.9 % [facility] LABORATORY Eosinophils Abs 0.4 0.0 - 0.4 [facility] x10(3)/[facility] LABORATORY Basophils % 0.6 % [facility] LABORATORY Basophils Abs 0.1 0.0 - 0.1 [facility] x10(3)/[facility] [...] Organization Address City/State/[place] [address] (ABNORMAL) Hemogram (08/07/2017 7:30 AM EST) Analysis Performed At Patho logist Time Signature WBC 9.7 (H) 4.0 - 9.5 [facility] x10(3)/[facility] LABORATORY RBC 3.54 (L) 4.58 - [facility] 5[facility] x10(6)/[facility] LABORATORY Hemoglobin 9.9 (L) 13.7 - [facility] 16.5 gm/dL [facility] LABORATORY Hematocrit 32.3 (L) 40.5 - [facility] 48.5 % [facility] LABORATORY MCV 91.2 82.9 - [facility] 93.1 [facility] LABORATORY MCH 28.0 27.5 - [facility] 32.1 pg [facility] LABORATORY MCHC 30.7 (L) 32.0 - [facility] 35.7 gm/dL [facility] LABORATORY Platelets 312 145 - 357 [facility] x10(3)/[facility] LABORATORY RDWSD 53.2 (H) 36.0 - [facility] 45.0 [facility] RDWCV 16.0 (H) 11.4 - [facility] R[facility]AN 13.8 % [facility] LABORATORY MPV 8.9 7.6 - 12.9 [facility] LABORATORY nRBC % Auto 0.0 % [facility] LABORATORY nRBC Abs Auto 0.000 0.000 - [facility] 0.000 [facility] x10(3)/[facility] LABORATORY Specimen Anatomical Collection Method Collection Time Receive d Time (Source) Location / / Volume Laterality Blood specimen 08/07/2017 7:30 AM 018 7:45 (specimen) EST AM EST Resulting Agency Comment Spec In Lab Yonathan Smith MD HEMATOLOGY ORDERABLES Performing Organization Address City/State/[place] [address] (ABNORMAL) Basic Metabolic Panel (non-fasting) (08/07/2017 7:30 AM EST) P athologist Signature Glucose Lvl 80 65 - 199 [facility] mg/dL [facility] LABORATORY [...] or in patients with acute kidney failure. [email or web address]/DHnkdep [email or web address] Specimen Anatomical Collection Method Collection Time Receive d Time (Source) Location / / Volume Laterality Blood specimen 08/07/2017 7:30 AM 018 7:45 (specimen) EST AM EST Resulting Agency Comment Spec In Lab Yonathan Smith MD CHEMISTRY ORDERABLES Performing Organization Address City/[facility]/ZIP Code Phon e Number [address] POCT Glucose (08/07/2017 7:27 AM EST) athologist Signature POC Glucose 81 65 - 199 [facility] mg/dL [facility] LABORATORY Comment: Supplemental ranges: <140 mg/dL before meals <180 mg/dL all other times of the day Specimen Anatomical Collection Method Collection Time Receive d Time (Source) Location / / Volume Laterality Blood specimen 08/07/2017 7:27 AM 018 7:27 (specimen) EST AM EST Yonathan Smith MD POINT OF CARE TEST ORDERABLE S Performing Organization Address City/[facility]/ZIP Code Phon e Number [address] APTT (08/07/2017 7:04 AM [...] Smith MD HEMATOLOGY ORDERABLES Performing Organization Address City/[facility]/ZIP Code Phon e Number [address] (ABNORMAL) Prothrombin Time (08/07/2017 [...] Address City/State/ZIP Code Phon e Number [address] POCT Glucose (08/07/2017 4:03 AM EST) athologist Signature POC Glucose 93 65 - 199 [facility] mg/dL [facility] LABORATORY Comment: [...] Address City/State/ZIP Code Phon e Number [address] POCT Glucose (08/07/2017 12:04 AM EST) athologist Signature POC Glucose 107 65 - 199 [facility] mg/dL [facility] LABORATORY Comment: [...] Address City/State/ZIP Code Phon e Number [address] POCT Glucose (08/06/2017 7:56 PM EST) P athologist Signature POC Glucose 178 65 - 199 [facility] mg/dL [facility] LABORATORY Comment: [...] Address City/State/ZIP Code Phon e Number [address] TcPO2 (08/06/2017 2:32 PM EST) Component Value Ref Test Analysis Performed At Patholo gist Range Method Time Signature VB Text Department: Vascular Surgery Lab VASCUBASE Report Patient: [id number] (GREGORY HOANG) CPT: [id number] ICD10: I99.8 Referring Physician: YONATHAN SMITH ?? [...] 130 mg (CANCELED) 2009 (Given - Provider: Hernique Marks RN) 130 mg, Subcutaneous, NIGHTLY, First [...]
Routine documented in this encounter Care Teams Shipping Helper Relationship Specialty Start Date End Date Lovely Vicente MD PCP - General 04/16/[address] [place] [address] documented as of this encounter
--- OUTSIDE RECORDS SUMMARY | 2022-04-27 08:17 | XMS_ITS | Encounter Summary ---
:1945 Author Organization [facility] [place] [address] Care Team Providers Name Role Phone Lovely Vicente MD Primary Care Provider Reason for Visit Auth/Cert Specialty Diagnoses / Procedures Referred By Contact Refer red To Contact Diagnoses Critical lower limb ischemia CELLULITIS RT FOOT Procedures EMERGENCY Referral ID Status Reason Start Date Expiration Date Visits Requ ested Visits Authorized [id number] 1 1 Encounter Details Date Type Department Care Team Description 08/06/2017 Laboratory Appointment Lab at [facility] Ischemia of foot [facility] [place] [address] Social History Tobacco Use Types Packs/Day [...] [facility] er Dr [place] MD 0375 (Wo rk) 05/28/2022 Laboratory Appointment Lab 05/28/2022 Office Visit Cardiology Zulma Dolan MD [facility] [place] [address] Liz oPole PA [facility] [place] [address] 06/10/2022 Office Visit Dermatology Laura Scherer MD [facility] ER DR [address]-DERMAT [facility] [place], [place] 0375 (Wo rk) documented as of [...] Signature Prealbumin 19 (L) 20 - 40 [facility] mg/dL [facility] Comment: Prealbumin levels are [...] Organization Address City/State/[place] [address] (ABNORMAL) Basic Metabolic Panel (non-fasting) (08/06/2017 12:32 PM EST) P athologist Signature Glucose Lvl 92 65 - 199 [facility] mg/dL [facility] Comment: Diabetes: [...] or in patients with acute kidney failure. [email or web address] [email or web address] Specimen Anatomical Collection Method Collection Time Receive d Time (Source) Location / / Volume Laterality Blood specimen 08/06/2017 12:32 8 1:15 (specimen) PM EST PM EST Resulting Agency Comment Spec In Lab Arik Clement MD CHEMISTRY ORDERABLES Performing Organization Address City/State/[place] [address] (ABNORMAL) Hemogram (08/06/2017 12:32 PM EST) Analysis Performed At Patho logist Time Signature WBC 11.8 (H) 4.0 - 9.5 [facility] x10(3)/[facility] LABORATORY RBC 3.49 (L) 4.58 - [facility] 5.54 [facility] x10(6)/[facility] LABORATORY Hemoglobin 9.9 (L) 13.7 - [facility] 16.5 gm/dL [facility] Hematocrit 32.0 (L) 40.5 - [facility] 48.5 % [facility] MCV 91.7 82.9 - [facility] 93.1 [facility] LABORATORY MCH 28.4 27.5 - KATALINA DAVIS 32.1 pg [facility] MCHC 30.9 (L) 32.0 - [place] DAV[place] 35.7 gm/dL [facility] Platelets 326 145 - 357 [facility] x10(3)/[facility] LABORATORY RDWSD 53.4 (H) 36.0 - [place] DAV[place] 45.0 [facility] ER LABORATORY RDWCV 16.0 (H) 11.4 - [place] RYAN 13.8 % [facility] LABORATORY MPV 9.1 7.6 - 12.9 [facility] LABORATORY nRBC % Auto 0.0 % [facility] LABORATORY nRBC Abs Auto 0.000 0.000 - [place] DAV[place] 0.000 [facility] x10(3)/[facility] LABORATORY Specimen Anatomical Collection Method Collection Time Receive d Time (Source) Location / / Volume Laterality Blood specimen 08/06/2017 12:32 8 1:15 (specimen) PM EST PM EST Resulting Agency Comment Spec In Lab Arik Clement MD HEMATOLOGY ORDERABLES Performing Organization Address City/State/ZIP Code Phon e Number [place] [id number] documented in this encounter Visit Diagnoses Diagnosis Ischemia of foot Unspecified circulatory system disorder documented in this encounter Care Teams Wholesale Account Manager Relationship Specialty Start Date End Date Lovely Vicente MD PCP - General 04/16/[address] [place] [address] documented as of this encounter
--- OUTSIDE RECORDS SUMMARY | 2022-04-27 08:17 | XMS_ITS | Encounter Summary ---
:1945 [place] [address] Care Team Providers Name Role Phone Lovely Vicente MD Primary Care Provider Encounter Details Date Type Department Care Team Description 07/29/2017 Telephone Pain Aurelia Crawford MD [facility] [place] [address] [facility] [phone] [place], [place] 0375 (Wo rk) Social History Tobacco [...] [facility] Dr [place], [place] [address] (Wo rk) 05/28/2022 Laboratory Appointment Lab 05/28/2022 Office Visit Cardiology Zulma Dolan MD [facility] [place] [address] Liz Poole PA [facility] [place] [address] 06/10/2022 Office Visit Dermatology Laura Scherer MD [facility] DR [address]MAT [place], [place] 0375 (Wo rk) documented as of this encounter Visit Diagnoses Not on filedocumented in this encounter Care Teams Bindery Chief Relationship Specialty Start Date End Date Lovely Vicente MD PCP - General 04/16/[address] [place] [address] [address] [place] [address] documented as of this encounter
--- OUTSIDE RECORDS SUMMARY | 2022-04-27 08:17 | XMS_ITS | Encounter Summary ---
:1945 [place] [address] Care Team Providers Name Role Phone Lovely Vicente MD Primary Care Provider Encounter Details Date Type Department Care Team Description 08/04/2017 Notes Only Cardiac Surgery Makayla Wilson APRN [facility] [place] [address] CARDIAC SURGERY [phone] [place], [place] 0375 (Wo rk) Social History Tobacco [...] Zulma Dolan MD [facility] [place], [place] 0[address] (Wo rk) 05/28/2022 Laboratory Appointment Lab 05/28/2022 Office Visit Cardiology Zulma Dolan MD [facility] [place] [address] Liz Poole PA [facility] [place] [address] 06/10/2022 Office Visit Dermatology Laura Scherer MD [facility] DR [address] [place], [place] 0375 (Wo rk) documented as of this encounter Visit Diagnoses Not on filedocumented in this encounter Care Teams Orthopedic Shoe Fitter Relationship Specialty Start Date End Date Lovely Vicente MD PCP - General 04/16/[address] [place] [address] documented as of this encounter
--- OUTSIDE RECORDS SUMMARY | 2022-04-27 08:18 | XMS_ITS | Encounter Summary ---
:1945 Author Organization [facility] [place] [address] Care Team Providers Name Role Phone Lovely Vicente MD Primary Care Provider Encounter Details Date Type Department Care Team Description 07/29/2017 Transcribe Orders Laboratory Lovely Vicente MD [address] [address] [place] [address] [phone] (Wo rk) Social History Tobacco Use Types [...] MD [facility] [place] [address] Liz Poole PA [facility] [place] [address] 06/10/2022 Office Visit Dermatology Laura Scherer MD [facility] ER DR [address] [place], [place] 0375 (Wo rk) documented as of this encounter Visit Diagnoses Not on filedocumented in this encounter Care Teams Grease Refiner Operator Relationship Specialty Start Date End Date Lovely Vicente MD PCP - General 04/16/[address] [place] [address] documented as of this encounter
--- OUTSIDE RECORDS SUMMARY | 2022-04-27 08:18 | XMS_ITS | Encounter Summary ---
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 Hank Zhang Vascular Surgery, PGY2 Pager #[phone] Associated attestation - Arik Clement MD - [...] Cardiology Zulma Dolan MD [facility] [place], [place] 0[address] (Wo rk) 05/28/2022 Laboratory Appointment Lab 05/28/2022 Office Visit Cardiology Zulma Dolan MD [facility] [place] [address] Liz Poole PA [facility] [place] [address] 06/10/2022 Office Visit Dermatology Laura Scherer MD [facility] DR [address] [place], [place] 0375 (Wo rk) documented as of [...] [facility] Range Method Time Signature VB Text Department: Vascular Surgery Lab VASCUBASE Report Patient: [id number] (GREGORY FATIMA) CPT: 95867 ICD10: I82.541 Referring Physician: TAMIKO JIMÉNEZ ?? [...] [facility] mg/dL [facility] Comment: Supplemental ranges: <140 mg/dL before meals <180 mg/dL all other times of the day Specimen Anatomical Collection Method Collection Time Receive d Time (Source) Location / / Volume Laterality Blood specimen 07/29/2017 2:28 PM 018 2:28 (specimen) EST PM EST Tamiko Jiménez MD POINT OF CARE TEST ORDERABLE S Performing Organization Address City/State/ZIP Code Phon e Number [address] (ABNORMAL) D-Dimer, Quantitative (07/29/2017 2:15 PM EST) [facility] [employer] Method Time Signature D-Dimer, Quant 1,699 (H) 0 - 500 [facility] FEU ng/ml [facility] Comment: The D-Dimer assay is [...] Organization Address City/State/[place] [address] (ABNORMAL) Differential, Automated (07/29/2017 2:15 PM EST) [facility] [employer] Method Time Signature Neutrophils % 82.5 % [facility] LABORATORY Neutr Abs (ANC) 10.21 (H) 1.70 - [facility] 6.10 [facility] x10(3)/[facility] L LABORATORY Lymphocytes % 7.1 % [facility] LABORATORY Lymphocytes Abs 0.9 0.9 - 3.2 [facility] x10(3)/[facility] LABORATORY Monocytes % 6.5 % [facility]ORATORY Monocyte Abs 0.8 0.3 - 0.9 [facility] x10(3)/[facility] LABORATORY Eosinophils % 2.7 % [facility] LABOR[facility]ORY Eosinophils Abs 0.3 0.0 - 0.4 [facility] x10(3)/[facility] LABORATORY Basophils % 0.6 % [facility] LABORATORY Basophils Abs 0.1 0.0 - 0.1 [facility] x10(3)/[facility] LABORATORY Immature Gran [...] Address City/State/ZIP [place] [address] (ABNORMAL) Hemogram (07/29/2017 2:15 PM EST) Analysis Performed At Patho logist Time Signature WBC 12.4 (H) 4.0 - 9.5 [facility] x10(3)/[facility] LABORATORY RBC 4.17 (L) 4.58 - [facility] 5.54 [facility] x10(6)/[facility] LABORATORY Hemoglobin 12.1 (L) 13.7 - [facility] 16.5 gm/dL [facility] Hematocrit 38.1 (L) 40.5 - [facility] 48.5 % [facility] MCV 91.4 82.9 - [facility] 93.1 [facility] LABORATORY MCH 29.0 27.5 - [facility] 32.1 pg [facility] MCHC 31.8 (L) 32.0 - [facility] RYAN 35.7 gm/dL [facility] LABORATORY Platelets 204 145 - 357 [facility] x10(3)/[facility] LABORATORY RDWSD 50.5 (H) 36.0 - [facility] 45.0 [facility] LABORATORY RDWCV 15.3 (H) 11.4 - [facility] RYAN 13.8 % [facility] LABORATORY MPV 9.4 7.6 - 12.9 [facility] LABORATORY nRBC % Auto 0.0 % [facility] LABORATORY nRBC Abs Auto 0.000 0.000 - [facility] 0.000 [facility] x10(3)/[facility] [employer] LABORATORY Specimen Anatomical Collection Method Collection Time Receive d Time (Source) Location / / Volume Laterality Blood specimen 07/29/2017 2:15 PM 018 2:36 (specimen) EST PM EST Resulting Agency Comment Spec In Lab Tamiko Jiménez MD HEMATOLOGY ORDERABLES Performing Organization Address City/State/ZIP [place] [address] (ABNORMAL) Prothrombin Time (07/29/2017 2:15 PM EST) P athologist Signature PT 24.4 (H) 11.8 - 14.0 [facility] LABORATORY INR 2.2 (H) 0.9 - 1.1 [facility] [...] Organization Address City/State/ZIP Code Phon e Number [place] [id number] HOSPITAL LAB[address] Drive Arterial Duplex Leg, Unil (07/29/2017 11:50 AM EST) Component Value Ref Test Analysis Performed At [facility] Range Method Time Signature VB Text Department: Vascular Surgery Lab VASCUBASE Report Patient: [id number] (GREGORY FATIMA) CPT: 79621 ICD10: Z09;I97.610 Referring Physician: TAMIKO JIMÉNEZ ?? [...] [facility] Range Method Time Signature VB Text Department: Vascular Surgery Lab VASCUBASE Report Patient: [id number] (GREGORY FATIMA) CPT: 60917 ICD10: I82.441 Referring Physician: TAMIKO JIMÉNEZ ?? [...] he calf. Notification: Marquis Pathak MD (pager #[phone]) was notif ied of the preliminary findings. [...] STAT documented in this encounter Care Teams Gear Roller Relationship Specialty Start Date End Date Lovely Vicente MD PCP - General 04/16/[address] [place] [address] [address] [place] [address] documented as of this encounter
--- OUTSIDE RECORDS SUMMARY | 2022-04-27 08:18 | XMS_ITS | Encounter Summary ---
:1945 [place] [address] Care Team Providers Name Role Phone Lovely Vicente MD Primary Care Provider Reason for Visit Reason Comments Hospital Transfer cold foot post CABG Auth/Cert Specialty Diagnoses / Procedures Referred By Contact Refer red To Contact Diagnoses Critical lower limb ischemia Procedures NAYE IPI Referral ID Status Reason Start Date Expiration Date Visits Requ ested Visits Authorized [id number] 1 1 Encounter Details Date Type Department Care Team Description 07/20/2017 Hospital Encounter 4 Herminia Ibarra MD [facility] [place] [address] Critical lower limb [facility] ([facility]) Arik Clement MD [facility] [place] [address] [place] [address] Social History Tobacco Use Types Packs/Day Years [...] home. Important Studies and Lab Data: Labs: [facility] Results Component Value Date INR 1.5 [...] For any problems or questions please call [phone] ZELDA Smith, director of automation Nurse Clinician For issues on weeknights after 5pm and weekends please call [phone] and ask for the Vascular Fellow counterperson. General Instructions None Future Appointments and Orders Future Appointments Provider Department Dept Phone 08/04/2017 1:00 PM Daniele Mooney [place] [facility] [place] [phone] 08/04/2017 2:15 PM Arik Clement MD Vascular Surgery at [place] [phone] 09/07/2017 3:00 PM MAYRA CHACON Lab [facility] [phone] 09/07/2017 4:00 PM Luz Prescott MD Endocrinology at [place] [phone] Future Orders Complete By Expires Arterial Duplex Leg, Unil [VAS32 Custom] 07/27/2017 (Approximate) 01/26/2018 Process Instructions: There is no in-house vascular recyclable materials collector available on weeknights (5pm-8am), weekends, or holidays. IF THIS IS A REQUEST FOR AN EMERGENT STUDY DURING THOSE HOURS, please have the senior provider responsible for the patient page the Vascular Surgery Fellow/Senior Resident counterperson to discuss options. Scheduling Instructions: Questions: Indication for study/signs & symptoms: Right femoral PSA s/p cardiac cath Question to be answered: bloodflow to PSA Laterality: Right Is there a RIGHT LOWER EXTREMITY graft?: No Lower limb right segments: Common Femoral Is there a stent?: No At which location will this be performed?: [place] Referral to Home Health - at DISCHARGE [[id number] CPT(R)] As directed Process Instructions: Scheduling Instructions: Comments: DOCUMENTATION FOR VNA SERVICES (INCLUDING THOSE PATIENTS WITH MEDICARE COVERAGE REQUIRING HOME VNA SERVICES AND/OR HOSPICE SERVICES) PATIENT'S LOCATION: Gregory Fatima [address] [place] [address] [place] [id number] (home) Cell: Telephone Information: County Records Management Officer's Name: self In discussion with the attending physician, it is certified that this patient is under their care and that they, or a Nurse Practitioner,Clinical Nurse specialist or Physician Deputy Commonwealth'S Attorney who is working directly with them, had [...] [facility] ([facility] [place] [facility]-is in [place] PHONE: [phone] FAX: [phone] Start of care: 24- 48 hours FOR [...] patient'sPCP: Lovely Vicente MD [address] [facility] [place] / [place] [address] All VNA agencies which cover the area [...] For any problems or questions please call [phone] ZELDA Smith, director of automation Nurse Clinician For issues on weeknights after 5pm and weekends please call [phone] and ask for the Vascular Fellow counterperson. documented in this encounter Medications at Time [...] RN - 07/20/2017 2:53 PM EST The patient/artists' booking representative has been provided a list of Home Health Agencies/DME vendors which serve their preferred geographic area. A letter describing our affiliations was reviewed with them and theywere educated about their right to choose where referrals are placed. Patient requests referral to [facility]. PHONE: [phone] FAX: [phone]. Expected date of discharge: 07/20/2017 . Referral routed to the Nurses Aide for matching with agency/vendor and to provide any required information. Naty Pulliam RN - 07/20/2017 11:37 AM EST The patient/artists' booking representative has been provided a list of Home Health Agencies/DME vendors which serve their preferred geographic area. A letter describing our affiliations was reviewed with them and theywere educated about their right to choose where referrals are placed. Patient requests referral to [facility] ([facility] [place] [facility]- is in [facility] PHONE: [phone] FAX: [phone]. Expected date of discharge: 07/20/2017 . Referral routed to the Nurses Aide for matching with agency/vendor and to provide any required information. Katina Pulliam RNradio frequency engineer Janneth Lee MD - 07/20/2017 7:29 AM [...] SETUP performed by Manny Mcknight MD at [facility] MAIN OR ??? PRO CABG, ARTERIAL, SINGLE N/A 07/07/2017 @CABG, USING ARTERIAL GRAFT;SINGLE ARTERIAL GRAFT (WRVU 33.75) performed by Yuan Retana MD at [facility] MAIN OR ??? PRO CABG, ARTERY-VEIN, TWO N/A 07/07/2017 @CABG, TWO VENOUS GRAFTS & ARTERIAL GRAFT (WRVU 7.93) performed by Yuan Retana MD at [facility] MAIN OR ??? PRO COLONOSCOPY, REMV LESN, SNARE 01/16/2014 COLONOSCOPY, POLYPECTOMY, REMOVAL LESION BY SNARE performed by Nohemi Jaimes MD at [facility] ENDOSCOPY ??? PRO ENDOSCOPY W/VIDEO-ASST VEIN HARVEST, CABG Right 07/07/2017 ENDOSCOPIC HARVEST VEIN(S) FOR CABG (WRVU 0.31) performed by Yuan Retana MD at [facility] MAIN OR ??? PRO THYROIDECTOMY 03/28/2013 THYROIDECTOMY, TOTAL OR COMPLETE performed by Manny Mcknight MD at [facility] MAIN OR Functional Status/Social Hx: Social History [...] -ISS -pain control Discussed with Vascular Fellow counterperson. Chris Valadez MD PGY2 Pager [phone] documented in this encounter ED Notes Annita Reaves MD - 07/20/2017 3:15 PM EST Emergency Department Gregory Fatima is a 72 y.o. male who presents to [facility] with arterial thrombosis. [...] the Past 30 Days: [facility] 07/05/17 Anticipated Length [...] Health/Prescription Coverage: Primary Insurance: MEDICARE Secondary Insurance: [employer] [facility] Prescription Coverage: See above Preferred Pharmacy: [facility] Other: N/A Primary Care Provider: Lovely Vicente MD [phone] Patient/Caregiver Goals of Treatment: Patient plans to return home when medically ready Potential Needs for Transition of Care: Rehab/SNF: N/A Home Health: [facility] ([facility] [place] [facility]-is in [place] PHONE: [phone] FAX: [phone] DME: N/A Dialysis: N/A Community Resources: N/A Transportation: Patient family will transport Other: N/A Anticipated Barriers to Discharge/Special Considerations: None Plan: Patient plans to return home with home health services when medically ready A member of the Care Management team will continue to monitor progress, follow for continuity of care and assist with transition of care planning. Naty Pulliam, RN Pager: [phone] ED Triage - Rayna Weir RN - 07/20/2017 12:28 AM EST Pt transferred from [facility] for blue right foot and painful toes. [...] Dolan MD [facility] [place], [place] [address] (Wo rk) 05/28/2022 Laboratory Appointment Lab 05/28/2022 Office Visit Cardiology Zulma Dolan MD [facility] [place] [address] Liz Poole PA [facility] [place] [address] 06/10/2022 Office Visit Dermatology Laura Scherer MD [facility] DR TE[address] GR[address] [place], [place] [address] (Wo rk) documented as of this encounter Procedures Procedure Name Priority Date/Time Associated Comments Diagnosis ASSISTANT MANAGER BILINGUAL SCAN 09/02/2017 12:00 Res ults for this [...] procedure are i n ([facility]) the results section. APTT [...] documented in this encounter Results SCAN DOC: ASSISTANT MANAGER BILINGUAL (09/02/2017 12:00 AM EST) Narrative 09/02/2017 12:00 AM EST This result has an attachment that is no t available. Ordered by an unspecified provider. Scanning Provider MEDIA MGR SCAN EXT ORDR/RSLT POCT Glucose (07/20/2017 12:04 PM EST) P athologist Signature POC Glucose 189 65 - 199 [facility] mg/dL [facility] [...] Organization Address City/State/[place] [address] (ABNORMAL) Differential, Automated (07/20/2017 10:34 AM EST) Patholo gist Method Time Signature Neutrophils % 84.3 % [facility] LABORATORY Neutr Abs (ANC) 14.27 (H) 1.70 - [facility] 6.10 [facility] x10(3)/[facility] LABORATORY Lymphocytes % 5.6 % [facility] LABORATORY Lymphocytes Abs 1.0 0.9 - 3.2 [facility] x10(3)/[facility] LABORATORY Monocytes % 6.1 % [facility] LABORATORY Monocyte Abs 1.0 (H) 0.3 - 0.9 [facility] x10(3)/[facility] LABORATORY Eosinophils % 2.4 % [facility] LABORATORY Eosinophils Abs 0.4 0.0 - 0.4 [facility] x10(3)/[facility] LABORATORY Basophils % 0.5 % [facility] LABORATORY Basophils Abs 0.1 0.0 - 0.1 [facility] x10(3)/[facility] LABORATORY Immature Gran % 1.10 % [facility] LABORATORY Comment: Immature granulocytes(IG's)percentage an d absolute count will include metamyelocytes, myelocytes, and promyelo cytes. Blood smears from CBCs yielding IG's will be scanned manually for concor dance. If this scan disagrees with the automated IG or if promyelocytes are not ed, a manual differential will be performed. Melisa Gran Abs 0.19 (H) 0.00 - 0.04 x10(3)/[facility] LABORATORY Specimen Anatomical Collection Method Collection Time Receive d Time (Source) Location / / Volume Laterality Blood specimen 07/20/2017 10:34 7 (specimen) AM EST 10:39 AM EST Resulting Agency Comment Spec In Lab Arik Clement MD HEMATOLOGY ORDERABLES Performing Organization Address City/State/[place] [address] (ABNORMAL) Hemogram (07/20/2017 10:34 AM EST) Analysis Performed At Patho logist Time Signature WBC 17.0 (H) 4.0 - 9.5 [facility] x[facility](3)/[facility] LABORATORY RBC 3.70 (L) 4.58 [facility] 5.54 [facility] x10(6)/[facility] LABORATORY Hemoglobin 10.8 (L) 13.7 [facility] 16.5 gm/dL [facility] LABORATORY Hematocrit 33.4 (L) 40.5 - [facility] 48.5 % [facility] LABORATORY MCV 90.3 82.9 - [facility] 93.1 [facility] LABORATORY MCH 29.2 27.5 - [facility] R[facility] 32.1 pg [facility] LABORATORY MCHC 32.3 32.0 - [facility] R[facility] 35.7 gm/dL [facility] LABORATORY Platelets 211 145 - 357 [facility] x10(3)/[facility] LABORATORY RDWSD 49.1 (H) 36.0 - [facility] R[facility] 45.0 [facility] LABORATORY RDWCV 14.7 (H) 11.4 - [facility] 13.8 % [facility] LABORATORY MPV 9.2 7.6 - 12.9 [facility] nRBC % Auto 0.0 % [facility] LABORATORY nRBC Abs Auto 0.000 0.000 - [place] RYAN 0.000 [facility] x10(3)/[facility] LABORATORY Specimen Anatomical Collection Method Collection Time Receive d Time (Source) Location / / Volume Laterality Blood specimen 07/20/2017 10:34 7 (specimen) AM EST 10:39 AM EST Resulting Agency Comment Spec In Lab Arik Clement MD HEMATOLOGY ORDERABLES Performing Organization Address City/State/ZIP [place] [address] (ABNORMAL) APTT (07/20/2017 10:34 AM EST) athologist Signature PTT 79 (H) 25 - 35 sec [facility] LABORATORY Comment: The recommended therapeutic range for fu ll dose, unfractionated heparin at [facility] is 80 ? [...] [facility]/ZIP [place] [address] POCT Glucose (07/20/2017 7:41 AM EST) athologist Signature POC Glucose 174 65 - 199 [facility] mg/dL [facility] [...] [facility]/ZIP Code Phon e Number [address] JULIAN, legs, multiple levels (07/20/2017 7:33 AM EST) Component Value Ref Test Analysis Performed At Patholo gist Range Method Time Signature VB Text Department: Vascular Surgery Lab VASCUBASE Report Patient: [id number] (GREGORY FATIMA) CPT: 42553 ICD10: I75.021;I99.8 Referring Physician: ARIK CLEMENT ?? [...] Department: Vascular Surgery Lab VASCUBASE Report Patient: [id number] (GREGORY FATIMA) CPT: 44767 ICD10: I97.610;I99.8 Referring Physician: ARIK CLEMENT ?? [...] Signature POC Glucose 199 65 - 199 [facility] mg/dL [facility] [...] Performing Organization Address City/[facility]/ZIP [facility] [place] [address] Lactate, whole blood, send to lab (Leb/CGP) (07/20/2017 2:25 AM EST) athologist Signature Lactate WB 2.0 0.5 - 2.2 [facility] mmol/L [facility] LABORATORY Specimen Anatomical Collection Method Collection Time Receive d Time (Source) Location / / Volume Laterality Blood specimen Venous Draw / 07/20/2017 2:25 AM 2016 2:37 (specimen) Unknown EST AM EST Resulting Agency Comment Spec In Lab Zulma Samuel MD CHEMISTRY ORDERABLES Performing Organization Address City/[facility] Code Phon e Number [address] (ABNORMAL) APTT (07/20/2017 2:25 AM EST) athologist Signature PTT 36 (H) 25 - 35 sec [facility] LABORATORY Comment: The recommended therapeutic range for fu ll dose, unfractionated heparin at [facility] is 80 ? [...] [facility]/ZIP [place] [address] (ABNORMAL) Prothrombin Time (07/20/2017 2:25 AM EST) athologist Signature PT 17.7 (H) 11.8 - 14.0 [facility] [...] Organization Address City/State/[place] [address] (ABNORMAL) Basic Metabolic Panel (non-fasting) (07/20/2017 2:25 AM EST) P athologist Signature Glucose Lvl 187 65 - 199 [facility] mg/dL [facility] [...] CENTER LABORATORY Comment: Specimen hemolyzed. Called by: [facility], Read back by: Chitra Orantes, Date/Time:07/20/17 03:05. Please note: ??Patients with WBC >100,00 0 may have falsely elevated Potassium levels. ??For accurate Potassium quantif ication in these patients send serum separator tube (gold top) for subsequent determinations. ??Contact the Clinical Chemistry Laboratory if there are any qu estions. Chloride 92 (L) 98 - 107 mmol/L [facility] [...] or in patients with acute kidney failure. http://Sweepery/DHnkdep http://Sweepery/DHMCnkf Specimen Anatomical Collection Method Collection Time Receive d Time (Source) Location / / Volume Laterality Blood specimen 07/20/2017 2:25 AM 017 2:33 (specimen) EST AM EST Resulting Agency Comment Spec In Lab Annita Reaves MD CHEMISTRY ORDERABLES Performing Organization Address City/State/ZIP Code Phon e Number [place] [phone] documented in this encounter [...]
Routine documented in this encounter Care Teams Associate Professor Of Law Relationship Specialty Start Date End Date Lovely Vicente MD PCP - General 04/16/[address] [place] [address] documented as of this encounter
--- OUTSIDE RECORDS SUMMARY | 2022-04-27 08:18 | XMS_ITS | Encounter Summary ---
:1945 [place] [address] Care Team Providers Name Role Phone Lovely Vicente MD Primary Care Provider Encounter Details Date Type Department Care Team Description 07/16/2017 Telephone Endocrinology at [facility] C Manuela Holliday, [facility] [place] [address] ENDOCRINOLOGY DEPT [phone] [place], [place] [address] (Wo rk) Social History Tobacco [...] Dolan MD [facility] Dr [place], [place] [address] (Wo rk) 05/28/2022 Laboratory Appointment Lab 05/28/2022 Office Visit Cardiology Zulma Dolan MD [facility] [place] [address] Liz Poole PA [facility] [place] [address] 06/10/2022 Office Visit Dermatology Laura Scherer MD [facility] DR TEJA GR[address] [place], [place] [address] (Wo rk) documented as of this encounter Visit Diagnoses Not on filedocumented in this encounter Care Teams Nursery Manager Relationship Specialty Start Date End Date Lovely Vicente MD PCP - General 04/16/[address] [place] [address] documented as of this encounter
--- OUTSIDE RECORDS SUMMARY | 2022-04-27 08:18 | XMS_ITS | Encounter Summary ---
:1945 Author Organization [facility] [place] [address] Care Team Providers Name Role Phone Lovely Vicente MD Primary Care Provider Encounter Details Date Type Department Care Team Description 07/29/2017 Transcribe Orders Laboratory Lovely Vicente MD [address] [address] [place] [address] [phone] (Wo rk) Social History Tobacco Use Types [...] [facility] er Dr [place] [address] (Wo rk) 05/28/2022 Laboratory Appointment Lab 05/28/2022 Office Visit Cardiology Zulma Dolan MD [facility] [place] [address] Liz Poole PA [facility] [place] [address] 06/10/2022 Office Visit Dermatology Laura Scherer MD [facility] ER DR TEJA GR[address] [place], [place] [address] (Wo rk) documented as of this encounter Visit Diagnoses Not on filedocumented in this encounter Care Teams Independent Freight Agent Relationship Specialty Start Date End Date Lovely Vicente MD PCP - General 04/16/[address] [place] [address] documented as of this encounter
--- OUTSIDE RECORDS SUMMARY | 2022-04-27 08:18 | XMS_ITS | Encounter Summary ---
:1945 Author Organization [facility] [place] [address] Care Team Providers Name Role Phone Lovely Vicente MD Primary Care Provider Reason for Visit Reason Onset Date Comments Other 07/22/2017 lovenox bridge Encounter Details Date Type Department Care Team Description 07/22/2017 Telephone Cardiology at [facility] Court Cadena RN Other (lovenox bridge) [place] [address] Social History Tobacco Use Types Packs/Day [...] 4:49 PM EST VAMSI Del Castillo, at [facility], called earlier today with a question re: lovenox bridge for this patient who was recently discharged from [facility] r/t a blood clot. Discharge note faxed to [facility] (fax# [phone], Ph#: [phone]) which contains instructions r/t lovenox bridge as follows: Anticoagulation: on lovenox bridge to therapeutic coumadin for AFib. Goal INR 2-3. At discharge INR=1.5. The lovenox injections can stop when INR >2, coumadin will continue indefinitely. documented in this encounter Plan of Treatment Upcoming Encounters Date Type Specialty Care Team Description 05/28/2022 Appointment Cardiology Zulma Dolan MD [facility] [place], [place] [address] (Wo rk) 05/28/2022 Laboratory Appointment Lab 05/28/2022 Office Visit Cardiology Zulma Dolan MD [facility] [place] [address] Liz Poole PA [facility] [place] [address] 06/10/2022 Office Visit Dermatology Laura Scherer MD [facility] [address] [place], [place] [address] (Wo rk) documented as of this encounter Visit Diagnoses Not on filedocumented in this encounter Care Teams Machinery Cleaner Relationship Specialty Start Date End Date Lovely Vicente MD PCP - General 04/16/15 [facility] [address] [place] [address] documented as of this encounter
--- OUTSIDE RECORDS SUMMARY | 2022-04-27 08:18 | XMS_ITS | Encounter Summary ---
:1945 [place] [address] Care Team Providers Name Role Phone Lovely Vicente MD Primary Care Provider Encounter Details Date Type Department Care Team Description 07/29/2017 Hospital Encounter Vascular Lab at Critic monica Huber lower limb [facility] [place] [address] Social History Tobacco Use Types Packs/Day Years [...] Zulma Dolan MD [facility] [place], [place] [address] (Wo rk) 05/28/2022 Laboratory Appointment Lab 05/28/2022 Office Visit Cardiology Zulma Dolan MD [facility] [place] [address] Liz Poole PA [facility] [place] [address] 06/10/2022 Office Visit Dermatology Laura Scherer MD [facility] [address]MAT [place], [place] [address] (Wo rk) documented as of this encounter Visit Diagnoses Diagnosis Critical lower limb ischemia Unspecified circulatory system disorder documented in this encounter Care Teams Behavioral Therapist Relationship Specialty Start Date End Date Lovely Vicente MD PCP - General 04/16/[address] [place] [address] documented as of this encounter
--- OUTSIDE RECORDS SUMMARY | 2022-04-27 08:18 | XMS_ITS | Encounter Summary ---
:1945 Author Organization [facility] [place] [address] Care Team Providers Name Role Phone Lovely Vicente MD Primary Care Provider Reason for Visit Reason Comments Follow-up Encounter Details Date Type Department Care Team Description 07/29/2017 Office Visit Cardiac Surgery at [facility] Yuan Retana MD S/P CABG x 3 [facility] [address] CARDIOTHORACIC SURGERY [phone] [place], [place] [address] (Wo rk) Social History Tobacco [...] evaluation by vascular surgery. Yuan Retana MD [phone] documented in this encounter Plan of Treatment Upcoming Encounters Date Type Specialty Care Team Description 05/28/2022 Appointment Cardiology Zulma Dolan MD [facility] er [address] [place] [address] (Wo rk) 05/28/2022 Laboratory Appointment Lab 05/28/2022 Office Visit Cardiology Zulma Dolan MD [facility] [place] [address] Liz Poole PA [facility] [place] [address] 06/10/2022 Office Visit Dermatology Laura Scherer MD [facility] ER DR [address] [place], [place] [address] (Wo rk) documented as of this encounter Visit Diagnoses Diagnosis S/P CABG x 3 Postsurgical aortocoronary bypass status documented in this encounter Care Teams Rod Pointer Relationship Specialty Start Date End Date Lovely Vicente MD PCP - General 04/16/[address] [place] [address] documented as of this encounter
--- OUTSIDE RECORDS SUMMARY | 2022-04-27 08:18 | XMS_ITS | Encounter Summary ---
:1945 Author Organization [facility] Address 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, unspecified assisted insulin use status [phone] [id number] Social History Tobacco Use Types Packs/Day Years [...] Zulma Dolan MD [facility] [place], [place] [address] (Wo rk) 05/28/2022 Laboratory Appointment Lab 05/28/2022 Office Visit Cardiology Zulma Dolan MD [facility] [place] [address] Liz Poole PA [facility] [place] [address] 06/10/2022 Office Visit Dermatology Laura Scherer MD [facility] ER [address] [place], [place] [address] (Wo rk) Scheduled Orders Name Type Priority Associated Diagnoses Order S chedule Lab Use Only, Fax Lab Routine Coronary arter y rupture Expected: 07/29/2017 Request Ischemic cardiom yopathy (Approximate), Atherosclerosis of moapa Ex jose: 07/29/2018 coronary artery, angina presence unspecified, unspecified whether moapa or transplanted heart Essential hypertension, malignant documented as of this encounter Results Uric acid (08/04/2017 12:55 PM EST) P athologist Signature Uric Acid 7.1 3.5 - 8.5 [facility]dL [facility] Specimen Anatomical Collection Method Collection Time Receive d Time (Source) Location / / Volume Laterality Blood specimen 08/04/2017 12:55 8 1:01 (specimen) PM EST PM EST Resulting Agency Comment Spec In Lab Lovely Vicente MD CHEMISTRY ORDERABLES Performing Organization Address City/State/Z[place] [address] (ABNORMAL) Hemogram (08/04/2017 12:55 PM EST) Analysis Performed At Patho logist Time Signature WBC 15.8 (H) 4.0 - 9.5 [facility] x[facility](3[facility] LABORATORY RBC 3.48 (L) 4.58 [facility] [address] x10(6)/[facility] LABORATORY Hemoglobin 9.9 (L) 13.7 - [facility] 16.5 gm/dL [facility] Hematocrit 31.4 (L) 40.5 - KATALINA DAVIS 48.5 % [facility] MCV 90.2 82.9 - [facility] 93.1 [facility] LABORATORY MCH 28.4 27.5 - [place] RYAN 32.1 pg [facility] MCHC 31.5 (L) 32.0 - [place] ZHAORYAN 35.7 gm/dL [facility] Platelets 310 145 - 357 [facility] x10(3)/[facility] LABORATORY RDWSD 51.8 (H) 36.0 - [place] RYAN 45.0 [facility] LABORATORY RDWCV 15.8 (H) 11.4 - [facility] 13.8 % [facility] MPV 8.9 7.6 - 12.9 [facility] LABORATORY nRBC % Auto 0.0 % [facility] nRBC Abs Auto 0.000 0.000 - [facility] [address] [facility] x10(3)/[facility] LABORATORY Specimen Anatomical Collection Method Collection Time Receive d Time (Source) Location / / Volume Laterality Blood specimen 08/04/2017 12:55 8 1:01 (specimen) PM EST PM EST Resulting Agency Comment Spec In Lab Lovely Vicente MD HEMATOLOGY ORDERABLES Performing Organization Address City/State/ZIP Code Phon e Number [place] [id number] (ABNORMAL) Comprehensive metabolic panel (non-fasting) (08/04/2017 12:55 PM EST) P athologist Signature Glucose Lvl 208 (H) 65 - 199 [facility] mg/dL [facility] Comment: Diabetes: >=200 mg/dL plus symp toms BUN 32 (H) 10 - 20 mg/dL [facility] Creatinine 1.58 (H) 0.80 - [...] Protein 6.9 6.1 - 8.0 gm/dL [facility] Albumin 3.4 3.2 - 5.2 gm/dL [facility] AST 20 0 - 39 unit/L [facility] ALT 21 0 - 55 unit/L [facility] Alk Phos 93 40 - 120 unit/L [facility] Total Bilirubin 0.4 0.2 - 1.3 mg/dL [facility] Estimated GFR 43 (L) >=60 [facility] Comment: The reported eGFR should be multiplied b y 1.2 for patients. The MDRD is not an appropriate measure o f renal function for patients with body mass extremes or in patients with acute kidney failure. http://Gigwell/DHnkdep http://Gigwell/DHMCnkf Specimen Anatomical Collection Method Collection Time Receive d Time (Source) Location / / Volume Laterality Blood specimen 08/04/2017 12:55 8 1:01 (specimen) PM EST PM EST Resulting Agency Comment Spec In Lab Lovely Vicente MD CHEMISTRY ORDERABLES Performing Organization Address City/State/[place] [address] (ABNORMAL) Hemoglobin A1c (08/04/2017 [...] Avg Gluc See note mg/dL [place] DAVIS [facility] Comment: Estimated Average Glucose [...] with hemoglobinopathies. Additional resources are available on [facility] ADA website. Macario HAMMOND, Ruthann J, Deysi R, et al. ??Tr anslating the A1C assay into estimated average glucose values. ??Diabetes Care 2008:31(8):2371-9583. Specimen Anatomical Collection Method Collection Time Receive d Time (Source) Location / / Volume Laterality Blood specimen 08/04/2017 12:55 8 1:01 (specimen) PM EST PM EST Resulting Agency Comment Spec In Lab Lovely Vicente MD CHEMISTRY ORDERABLES Performing Organization Address City/State/[place] [address] (ABNORMAL) Prothrombin Time (08/04/2017 12:55 PM EST) P athologist Signature PT 35.4 (H) 11.8 - 14.0 [facility] LABORATORY INR 3.5 (H) 0.9 - 1.1 [facility] LABOR[facility]ORY [...] Organization Address City/State/[place] [address] documented in this encounter Visit Diagnoses Diagnosis Coronary artery rupture Acute myocardial infarction, unspecified site, episode of care unspecified Ischemic cardiomyopathy Other specified forms of chronic ischemi c heart disease Atherosclerosis of moapa coronary arter y, angina presence unspecified, unspecified whether moapa or transplanted heart Essential hypertension, malignant Diabetes mellitus due to underlying cond ition with diabetic nephropathy, unspecified assisted insulin use status documented in this encounter Care Teams Ward Attendant Relationship Specialty Start Date End Date Lovely Vicente MD PCP - General 04/16/[address] [place] [address] documented as of this encounter
--- OUTSIDE RECORDS SUMMARY | 2022-04-27 08:18 | XMS_ITS | Encounter Summary ---
:1945 Author Organization [place] [address] Care Team Providers Name Role Phone Lovely Vicente MD Primary Care Provider Encounter Details Date Type Department Care Team Description 07/24/2017 Telephone Vascular Surgery Melba Bob [facility] [place] [address] [facility] [phone] VASCULAR SURGERY [place], [place] [address] (Wo rk) Social History Tobacco [...] on Coumadin. ??[place] [facility] [place] with mottled toes on the [...] MD [facility] [address] [place] [address] (Wo rk) 05/28/2022 Laboratory Appointment Lab 05/28/2022 Office Visit Cardiology Zulma Dolan MD [facility] [place] [address] Liz Poole PA [facility] [place] [address] 06/10/2022 Office Visit Dermatology Laura Scherer MD [facility] [address] [place], [place] [address] (Wo rk) documented as of this encounter Visit Diagnoses Not on filedocumented in this encounter Care Teams Ballroom Dance Instructor Relationship Specialty Start Date End Date Lovely Vicente MD PCP - General 04/16/[address] [place] [address] documented as of this encounter
--- OUTSIDE RECORDS SUMMARY | 2022-04-27 08:18 | XMS_ITS | Encounter Summary ---
:1945 Author Organization [facility] [place] [address] Care Team Providers Name Role Phone Lovely Vicente MD Primary Care Provider Reason for Visit Reason Comments Foot Pain Auth/Cert Specialty Diagnoses / Procedures Referred By Contact Refer red To Contact Diagnoses Ischemic foot Procedures NAYE OBSVO Referral ID Status Reason Start Date Expiration Date Visits Requ ested Visits Authorized [id number] 1 1 Encounter Details Date Type Department Care Team Description 07/27/2017 Emergency 1 [facility] Lokesh Swenson MD [facility] [address] [place] [address] Femoral artery pseudo-aneurysm, right; [facility] Tam Bauman MD [facility] [place] [address] [place] [address] Social History Tobacco Use Types Packs/Day [...] Gregory Fatima Patient Age: 72 y.o. Language: Cameroonian Race: White Ethnicity: Not nor Admit date: [...] please contact your inpatient physician through the [facility] Shared Services And Outsourcing Manager . Issues after hours and on [...] RLE critical limb ischemia, who presented to [facility] with worsening RLE pain. Pt post-op course after CABG was significant for paroxysmal Afib, and he was started on Coumadin given elevated [id number] score. He presented 2 weeks following that, on 07/20, with RLE pain/pallor andwas found to have critical limb ischemia in setting of subtherapeutic INR, pseudoaneurysm Rt RESOURCE COORDINATOR and occlusion b/l ant tibial arteries. He [...] in the last 7068 hours. Invalid input(s): [id number] Recent Labs 07/08/17 0400 07/07/17 0515 07/06/17 [...] (it was low at 1.6 here at [facility]) 7. Use the tramadol if dilaudid or tylenol is not working 8. Stop taking the potassium supplement - your blood potassium level was elevated. Ask your doctors at future visits if this should be restarted. 9. Antibiotic for 5 days recommended by cardiothoracic surgery for chest wound drainage Follow-Up Appointments Vascular surgery as previously schedule Your Inpatient Doctor(s) at [facility]: CARLOS ALBERTO ROSALES MD General Instructions None Future Appointments and Orders Future Appointments Provider Department Dept Phone 07/30/2017 8:30 AM OSWALDO, THREE L Lab 3L [facility] [phone] 07/30/2017 9:40 AM Danette Maxwell APRN Cardiology at [facility] [phone] 08/04/2017 1:00 PM Daniele Mooney [place] Vascular Lab at [facility] [phone] 08/04/2017 2:15 PM Arik Clement MD Vascular Surgery at [facility] [phone] 08/11/2017 10:00 AM [facility] ROOM 2 XRay at [facility] [phone] Please go to [facility] 3T (Hand Location). 08/11/2017 11:00 AM Yuan Retana MD Cardiac Surgery at [facility] [phone] 09/07/2017 3:00 PM LAB, THREE L Lab 3L [facility] [phone] 09/07/2017 4:00 PM Luz Prescott MD Endocrinology at [facility] [phone] Discharge References/Attachments None documented in this encounter [...] (it was low at 1.6 here at [facility]) 3. Use the tramadol if dilaudid or tylenol is not working 4. Stop taking the potassium supplement - your blood potassium level was elevated. Ask your doctors at future visits if this should be restarted. 5. Antibiotic for 5 days recommended by cardiothoracic surgery for chest wound drainage Follow-Up Appointments Vascular surgery as previously schedule Your Inpatient Doctor(s) at [facility]: CARLOS ALBERTO ROSALES MD documented in this [...] Gas) No results found for: PHART, PO2ART, HVX0NND Assessment/Plan: 72 y.o. male s/p CABG in [...] intervention: Education Nutrition Recommendations: Recommend continuation of [facility], CHO2 diet order Patient and denied need [...] Orders Diet Daily Healthy Menu Choices/Cardiac diet ([facility]-Diet) 60/ CHO counting level 2 Frequency: Effective Now Number of Occurrences: Until Specified Admit Weight: 83.92 kg Estimated body mass index is 28.13 kg/(m^2) as calculated from the following: Height as of this encounter: 172.7 cm (5' 8). Weight as of this encounter: 83.9 kg (185 lb). [place] body weight: 68.4 kg (150 lb 12.7 [...] RLE critical limb ischemia, who presented to [facility] with worsening RLE pain. Visited with patient [...] spent >30 minutes (Day of Discharge Code 32573) involved in the final examination of the [...] Melanoma ID: 72 y.o. Male presents to [facility] with persistent pain b/l lower extremities History of Present Illness: HPI 72 y.o. male with PMH ASCVD s/p CABG (07/07/17), MARIA VICTORIA on CPAP QHS, HTN, HLD, DM2, with recent hospitalization for RLE critical limb ischemia, who presented to [facility] with worsening RLE pain. Pt post-op course after CABG was significant for paroxysmal Afib, and he was started on Coumadin given elevated [id number] score. He presented 2 weeks following that, on 07/20, with RLE pain/pallor andwas found to have critical limb ischemia in setting of subtherapeutic INR, pseudoaneurysm Rt RESOURCE COORDINATOR and occlusion b/l ant tibial arteries. He [...] Procedure Component Value Units Date/Time Blood culture [[id number]] Collected: 07/09/1739 Lab Status: Final result Specimen: Blood from Arm, Right Updated: 07/14/17701 Blood Culture No growth at 5 days. Blood culture [[id number]] Collected: 07/09/170 Lab Status: Final result Specimen: [...] limb ischemia following CABG, who presented to [facility] ED from home with persistent B/L LE [...] continued Diet Daily Healthy Menu Choices/Cardiac diet ([facility]-Diet) 60/60/75 CHO counting level 2Cardiac, low salt, CHO 2 Discharge planning Pending improvement in pain control PT/OT/Speech PT ordered Lines/Access PIV Ocasio catheter No DVT/GI Prophylaxis Lovenox bridge to Coumadin, SCD. Code status Full Code Family PCP Lovely Vicente MD [phone] Attestation Please see my note for details [...] encounter Miscellaneous Notes Plan of Care - [place]-Joyce Damian, PT - 07/27/2017 3:26 PM EST [...] Discharge Disposition: home with assist Pager: [phone] JOYCE KING, PT Inpatient Physical Therapy 2017 [...] patient's evaluation including the following functional test(s) [facility]. Current ability measures, co-morbidities and clinical judgement [...] a lovenox bridge. Mr. Fatima returns to [facility] ED tonight because of ongoing pain in [...] up in clinic 1-2 weeks after discharge. [facility] Vascular Surgery Plan of Care - [...] Cardiology Zulma Dolan MD [facility] [place], [place] [address] (Wo rk) 05/28/2022 Laboratory Appointment Lab 05/28/2022 Office Visit Cardiology Zulma Dolan MD [facility] [place] [address] Liz Poole PA [facility] [place] [address] 06/10/2022 Office Visit Dermatology Laura Scherer MD [facility] [address] [place], [place] [address] (Wo rk) documented as of [...] section. TYPE AND SCREEN STAT 07/27/2017 12:53 ([facility]/CGP/SHANDA) AM EST BASIC METABOLIC PANEL STAT 07/27/2017 12:53 Re sults for this (NON-FASTING) AM EST procedure are in the results section. documented in this encounter Results POCT Glucose (07/27/2017 11:53 AM EST) P athologist Signature POC Glucose 175 65 - 199 [facility] mg/dL [facility] LABORATORY [...] Address City/State/[place] [address] Arterial Duplex Leg, Unil (07/27/2017 7:40 AM EST) Component Value Ref Test Analysis Performed At Patholo gist Range Method Time Signature VB Text Department: Vascular Surgery Lab VASCUBASE Report Patient: [id number] (GREGORY FATIMA) CPT: 36416 ICD10: I97.610;I72.4;Z09 Referring Physician: TAM BAUMAN ?? [...] Bauman MD VASCULAR ORDERABLES Performing Organization Address City/[facility]/ZIP Code Phon e Number VASCUBASE POCT Glucose (07/27/2017 6:51 AM EST) P athologist Signature POC Glucose 96 65 - 199 [facility] mg/dL [facility] LAB[facility] Comment: Supplemental ranges: <140 mg/dL before meals <180 mg/dL all other times of the day Specimen Anatomical Collection Method Collection Time Receive d Time (Source) Location / / Volume Laterality Blood specimen 07/27/2017 6:51 AM 018 6:51 (specimen) EST AM EST Tam Bauman MD POINT OF CARE TEST ORDERABLE S Performing Organization Address City/[facility]/ZIP [facility] Phon e Number [address] ABORH Recheck Status (07/27/2017 [...] BLOOD BANK ORDERABLES Performing Organization Address City/[facility]/[place] [address] Gold Tube HOLD (07/27/2017 12:53 AM EST) P athologist Signature Gold Hold Sample in [facility]. [facility] Specimen Anatomical Collection Method Collection Time Receive d Time (Source) Location / / Volume Laterality Blood specimen Venous Draw / 07/27/2017 12:53 07/27/19 18 1:01 (specimen) Unknown AM EST AM EST Angela Swenson MD CHEMISTRY ORDERABLES Performing Organization Address City/State/ZIP [place] [address] (ABNORMAL) Differential, Automated (07/27/2017 12:53 AM EST) Patholo gist Method Time Signature Neutrophils % 75.0 % [facility] LABORATORY Neutr Abs (ANC) 11.30 (H) 1.70 - [facility] 6.10 [facility] x10(3)/[facility] LABORATORY Lymphocytes % 9.9 % [facility] LABORATORY Lymphocytes Abs 1.5 0.9 - 3.2 [facility] x10(3)/[facility] LABORATORY Monocytes % 8.6 % [facility] LABORATORY Monocyte Abs 1.3 (H) 0.3 - 0.9 [facility] x10(3)/[facility] LABORATORY Eosinophils % 4.8 % [facility] LABORATORY Eosinophils Abs 0.7 (H) 0.0 - 0.4 [facility] x10(3)/[facility] LABORATORY Basophils % 0.8 % [facility] LABORATORY Basophils Abs 0.1 0.0 - 0.1 [facility] x10(3)/[facility] LABORATORY Immature Gran % 0.90 % [...] Organization Address City/State/ZIP [place] [address] (ABNORMAL) Hemogram (07/27/2017 12:53 AM EST) Analysis Performed At Patho logist Time Signature WBC 15.0 (H) 4.0 - 9.5 [facility] x10(3)/[facility] LABORATORY RBC 3.59 (L) 4.58 - [facility] 5.54 [facility] x10(6)/[facility] LABORATORY Hemoglobin 10.3 (L) 13.7 - [facility] 16.5 gm/dL [facility] LAB[facility] Hematocrit 32.6 (L) 40.5 - [facility] 48.5 % [facility] LABOR[facility]ORY MCV 90.8 82.9 - [facility] 93.1 [facility] LABORATORY MCH 28.7 27.5 - [facility] R[facility]AN 32.1 pg [facility] LABORATORY MCHC 31.6 (L) 32.0 - [facility] 35.7 gm/dL [facility] LAB[facility] Platelets 322 145 - 357 [facility] x10(3)/[facility] RDWSD 48.7 (H) 36.0 - [facility] 45.0 [facility] LABORATORY RDWCV 14.7 (H) 11.4 - [facility] 13.8 % [facility] LABORATORY MPV 8.9 7.6 - 12.9 [facility] LABORATORY nRBC % Auto 0.0 % [facility] LABORATORY nRBC Abs Auto 0.000 0.000 - [facility] R[facility]AN 0.000 [facility] x10(3)/[facility] LABORATORY Specimen Anatomical Collection Method Collection Time Receive d Time (Source) Location / / Volume Laterality Blood specimen 07/27/2017 12:53 8 1:00 (specimen) AM EST AM EST Resulting Agency Comment Spec In Lab Angela Swenson MD HEMATOLOGY ORDERABLES Performing Organization Address City/State/[place] [address] Antibody screen (07/27/2017 12:53 AM EST) Patholo gist Method Time Signature Ab Screen Negative [facility] LABORATORY Expires at 07/30/2017 KATALINA ZHAORYAN [id number] on: [facility] LABORATORY Specimen Anatomical Collection Method Collection Time Receive d Time (Source) Location / / Volume Laterality Blood specimen 07/27/2017 12:53 8 (specimen) AM EST 12:58 AM EST Resulting Agency Comment Spec In Lab Angela Swenson MD BLOOD BANK ORDERABLES Performing Organization Address City/[facility]/[place] [address] ABO/Rh Typing (07/27/2017 12:53 AM EST) P athologist Signature ABORh Type O Pos [facility] LABORATORY Specimen Anatomical Collection Method Collection Time Receive d Time (Source) Location / / Volume Laterality Blood specimen 07/27/2017 12:53 8 (specimen) AM EST 12:58 AM EST Resulting Agency Comment Spec In Lab Angela Swenson MD BLOOD BANK ORDERABLES Performing Organization Address City/[facility] [place] [address] (ABNORMAL) Prothrombin Time (07/27/2017 12:53 AM EST) P athologist Signature PT 19.1 (H) 11.8 - 14.0 [facility] [...] Organization Address City/State/ZIP [place] [address] (ABNORMAL) Basic Metabolic Panel (non-fasting) (07/27/2017 12:53 AM EST) athologist Signature Glucose Lvl 95 65 - 199 [facility] mg/dL [facility] LABORATORY Comment: Diabetes: >=200 mg/dL plus symp toms BUN 37 (H) 10 - 20 mg/dL [facility] LABORATORY Creatinine 1.49 0.80 - 1.50 mg/dL [facility] LABORATORY Sodium 137 135 - 145 mmol/L [facility] LABORATORY Potassium 5.1 (H) 3.5 - 5.0 mmol/L [facility] [...] or in patients with acute kidney failure. http://[employer]/DHnkdep http://[employer]/DHMCnkf Specimen Anatomical Collection Method Collection Time Receive d Time (Source) Location / / Volume Laterality Blood specimen 07/27/2017 12:53 8 1:00 (specimen) AM EST AM EST Resulting Agency Comment Spec In Lab Angela Swenson MD CHEMISTRY ORDERABLES Performing Organization Address City/State/ZIP [place] [address] documented in this encounter [...] documented in this encounter Care Teams Outsole Splicer Relationship Specialty Start Date End Date Lovely Vicente MD PCP - General 04/16/15 [facility] [address] [facility] [address] [place] [address] documented as of this encounter
--- OUTSIDE RECORDS SUMMARY | 2022-04-27 08:18 | XMS_ITS | Encounter Summary ---
:1945 [place] [address] Care Team Providers Name Role Phone Lovely Vicente MD Primary Care Provider Reason for Visit Reason Onset Date Comments Questions 07/16/2017 fluid retention Encounter Details Date Type Department Care Team Description 07/16/2017 Telephone Cardiology at [facility] Martha Comer, Questions ([facility] RN retention ) [place] [address] Social History Tobacco Use Types Packs/Day [...] the direct number to the HF team ([phone]). She is aware of his appt with PROCESS CONSULTANT Hans on 07/21/17 and the need for labs prior to that visit. verbalized good understanding of the current POC. documented in this encounter Plan of Treatment Upcoming Encounters Date Type Specialty Care Team Description 05/28/2022 Appointment Cardiology Zumla Dolan MD [facility] [address] [place], [place] [address] (Wo rk) 05/28/2022 Laboratory Appointment Lab 05/28/2022 Office Visit Cardiology Zulma Dolan MD [facility] [place] [address] Liz Poole PA [facility] [place] [address] 06/10/2022 Office Visit Dermatology Laura Scherer MD [facility] [address] [place], [place] [address] (Wo rk) documented as of this encounter Visit Diagnoses Not on filedocumented in this encounter Care Teams Mechanical Door Repairer Relationship Specialty Start Date End Date Lovely Vicente MD PCP - General 04/16/[address] [place] [address] documented as of this encounter
--- OUTSIDE RECORDS SUMMARY | 2022-04-27 08:19 | XMS_ITS | Encounter Summary ---
:1945 Author Organization [facility] [place] [address] Care Team Providers Name Role Phone Lovely Vicente MD Primary Care Provider Encounter Details Date Type Department Care Team Description 07/08/2017 Orders [facility] [place] [address] Social History Tobacco Use Types Packs/Day [...] Dolan MD [facility] er [address] [place], [place] [address] (Wo rk) 05/28/2022 Laboratory Appointment Lab 05/28/2022 Office Visit Cardiology Zulma Dolan MD [facility] [place] [address] Liz Poole PA [facility] [place] [address] 06/10/2022 Office Visit Dermatology Laura Scherer MD [facility] ER [address] [address] (Wo rk) documented as of this encounter [...] Mccollum ? (Age): 1945(72y) Med Rec#: ? [id number] ?Sex: ?M ? Site Loc: ? Ht / Wt: ??(cm)/ (kg) ? Pt. Loc: ? Study Date: ?? 07/07/2017 ?Pt. Type: Tape: ? Referring: Yuan Retana Reading: Yifan Perez MD ([id number]) Performing: Yifan Perez MD ([id number]) Diagnosis: SUMMARY: 1. Intraoperative AVELINO performed at the [facility] of Dr. Mike for the [...] ? Mid-Inferior ?Hypokinetic ? Mid-Inferoseptal ?Hypokinetic ? [place]-Septal ? Hypokinetic ? [place]-Anterior ? Hypokinetic ? [place]-Lateral ?Hypokinetic ? [place]-Inferior ? Hypokinetic ? [place]-Tip ?Not Seen ? This report has been electronically sign ed by: _ Yifan Perez MD ? 07/08/2017 12 :25:18 Images reviewed and interpretation verif ied [facility] Cardiac Ultrasound Laboratory Procedure Note Yifan Perez MD - 07/08/2017Formatt ing of this note might be different from the original. Procedure: Transesophageal Echocardiogra m Patient: NATALYA MCBRIDE(Age): [birth year]72y) Med Rec#: [id number] Sex: M Site Loc: Ht / Wt: (cm)/ (kg) Pt. Loc: Study Date: 07/07/2017 Pt. Type: Tape: Referring: Yuan Retana Reading: Yifan Perez MD ([id number]) Performing: Yifan Perez MD ([id number]) Diagnosis: SUMMARY: 1. [facility] for the diagnosis and [...] Hypokinetic Mid-Posterolateral Hypokinetic Mid-Inferior Hypokinetic Mid-Inferoseptal Hypokinetic [place]-Septal Hypokinetic [place]-Anterior Hypokinetic [place]-Lateral Hypokinetic [place]-Inferior Hypokinetic [place]-Tip Not Seen This report has been electronically [...] General 04/16/[address] [place] [address] documented as of this encounter
--- OUTSIDE RECORDS SUMMARY | 2022-04-27 08:19 | XMS_ITS | Encounter Summary ---
:1945 Author Organization [facility] [place] [address] Care Team Providers Name Role Phone Lovely Vicente MD Primary Care Provider Reason for Referral Consultation (Routine) - Closed Specialty Diagnoses / Referred By Contact Referred To Contact Procedures Cardiac Rehabilitation Diagnoses S/P CABG x 3 Yuan Webber, Cardiac Rehab, [address] [place], [place] CARDIOTHORACIC [address] [place] [address] Referral ID Status Reason Start Date Expiration Date Visits V isits Requested Authorized [id number] Closed Consult, 07/14/2017 01/10/2018 36 36 Test & Treat Reason for Visit Auth/Cert Specialty Diagnoses / Procedures Referred By Contact Refer red To Contact Diagnoses STEMI (ST elevation myocardial infarction) NSTEMI STEMI Procedures CARDIAC CATHETERIZATION NAYE IPI Referral ID Status Reason Start Date Expiration Date Visits Requ ested Visits Authorized [id number] 1 1 Encounter Details Date Type Department Care Team Description 07/05/2017 - Hospital Encounter Cardiac Special Daphne Shahid MD [facility] [place] [address] Non-ST elevation myocardial infarction ( NSTEMI); 07/14/2017 Care Unit Yuan Preciado MD [facility] [place] [address] S/P CABG x 3 [place] [id number] Social History Tobacco Use Types Packs/Day Years [...] Patient Age: 72 y.o. Birthdate: 1945 Language: Kenyan Race: White Ethnicity: Not nor Admit Date: [...] , @ 1:20p Patient to follow-up with Volunteer Services Assistant/heart failure team in one week. An appointment will be made for you. You may call [phone] Patient to follow-up with Cardiac Surgery, Dr. Yuan Webber, in ~ 4 weeks with CXR, EKG. Inpatient Provider Contact Information: [facility] Section of Cardiac Surgery [facility] [address] FAX [phone] Discharge Diagnoses (Hospital Problems) Primary Diagnoses: CAD [...] 33.75) performed by Yuan Webber MD at [facility] MAIN OR ??? PRO CABG, ARTERY-VEIN, TWO N/A 07/07/2017 @CABG, TWO VENOUS GRAFTS & ARTERIAL GRAFT (WRVU 7.93) performed by Yuan Webber MD at [facility] MAIN OR ??? PRO COLONOSCOPY, REMV LESN, SNARE 01/16/2014 COLONOSCOPY, POLYPECTOMY, REMOVAL LESION BY SNARE performed by Nohemi Jaimes MD at [facility] ENDOSCOPY ??? PRO ENDOSCOPY W/VIDEO-ASST VEIN HARVEST, CABG Right 07/07/2017 ENDOSCOPIC HARVEST VEIN(S) FOR CABG (WRVU 0.31) performed by Yuan Webber MD at [facility] MAIN OR ??? PRO THYROIDECTOMY 03/28/2013 THYROIDECTOMY, TOTAL OR COMPLETE performed by Manny Mcknight MD at [facility] MAIN OR Prior To Admission Medications Prescriptions Prior to Admission Medication Sig Dispense Refill Last Dose ??? levothyroxine (SYNTHROID) 175 mcg Tablet Take 1 tablet by mouth daily. 90 tablet 3 07/05/2017 [id number] ??? ascorbic acid, vitamin C, (VITAMIN C) [...] Course: Gregory Hoang was admitted to [facility] on 07/05/2017 via the Cardiology Service. [...] not take or discontinue any prescription or wwry-tef-ntarjqh medications without asking your doctor or pharmacist [...] day to have your insulin doses adjusted. [facility] Endocrine clinic office Discharge Instructions: Call your doctor if: You have a fever of greater than 101 degrees, shaking chills, if you develop redness or drainage from your incision sites, or if you have questions. Please call your surgeon's office if you have any discharge or drainage from your chest incision. Your surgeon, Dr. Yuan Webber and/or the Cardiac Surgery Physician Brake Tester Team may be reached at . Weight: [...] Dr. Yuan Webber. You may use a [place] Track or treadmill but avoid any pulling [...] with the surgeon. Do not ride motorcycles, [employer] tractors or horses. Avoid the use of [...] , @ 1:20p Patient to follow-up with Volunteer Services Assistant/heart failure team in one week. Appointment will be made for you. You may call [phone] Patient to follow-up with Cardiac Surgery, Dr. [...] L Lab 3L [facility] [phone] 09/07/2017 4:00 PM Luz Prescott MD Endocrinology at [facility] [phone] Future Orders Complete By Expires EKG 12 Lead [EKG1 Custom] 08/14/2017 02/13/2018 Process Instructions: Scheduling Instructions: Questions: Which location will this be performed?: [facility] Is a rhythm strip needed?: No If EKG Reason is Pre-op Evaluation, indicate diagnosis for surgery.: XR Chest PA & Lateral (Generic) [36448 35870 Custom] 08/14/2017 02/13/2018 Process Instructions: Scheduling Instructions: Questions: Where will study be performed?: [facility] Portable exam?: Reason for exam and clinical history: CABG x 3 Other pertinent information: Stat read required?: Date of injury if applicable: Requested Time: Referral to Cardiac Rehab [FRJ301 Custom] As directed Process Instructions: If no progress note charted, please enter Clinical details in comments. Scheduling Instructions: Questions: My question or request is: s/p CABG. Cardiac rehab at [facility] Referral to Home Health - at DISCHARGE [DUL9686 CPT(R)] As directed Process Instructions: Scheduling Instructions: Comments: DOCUMENTATION FOR VNA SERVICES (INCLUDING THOSE PATIENTS WITH MEDICARE COVERAGE REQUIRING HOME VNA SERVICES AND/OR HOSPICE SERVICES) PATIENT'S LOCATION: Gregory Hoang [address] [place] [address] [place] [phone] (home) Telephone Information: Churn Operator's Name: self In discussion with the attending physician, it is certified that this patient is under their care and that they, or a Nurse Practitioner, or Physician Brake Tester who is working directly with them, had [...] M[facility] ([facility] [place] [employer]-is in [place]) PHONE: [phone] FAX: [phone] RN orders: Cardiopulmonary assessment, incisional assessment, assess vital signs, assessment of rehab progress, medication management and effectiveness, home safety evaluation. Please draw INR if indicated and send result to:Dr Vicente [phone] PT ORDERS: Continue rehab for endurance, gait stability and strength with mobility and transfers. Home safety evaluation. Home exercise program if appropriate. Start of Care Date:24-48 hours after discharge SPECIAL INSTRUCTIONS: For any follow up questions, needs, or issues please call the Cardiac Surgery Office at [phone] FOR MEDICARE ONLY: (please delete this section [...] [facility] Section of Cardiac Surgery [facility] [address] FAX [phone] Date: 07/14/2017 CC: MD Ivania Cr Betsy, PA [address] [place] [phone] documented in this encounter Discharge Instructions Discharge [...] day to have your insulin doses adjusted. [facility] Endocrine clinic office Patient InstructionsStMartha [...] not take or discontinue any prescription or tifh-pha-xvfyici medications without asking your doctor or pharmacist [...] juice or regular (not diet) soda 6 Buzz360s small box of raisins 4 glucose tablets [...] day to have your insulin doses adjusted. [facility] Endocrine clinic office ? Discharge [...] Yuan Webber and/or the Cardiac Surgery Physician Brake Tester Team may be reached at . ?? [...] Dr. Yuan Webber. You may use a [place] Track or treadmill but avoid any pulling [...] with the surgeon. Do not ride motorcycles, [employer] tractors or horses. Avoid the use of [...] @ 1:20p ?? Patient to follow-up with Volunteer Services Assistant/heart failure team in one week. An appointment has been made for you, you can call [phone] ?? Patient to follow-up with Cardiac Surgery, [...] L Lab 3L [facility] [phone] ?? 09/07/2017 4:00 PM Luz Prescott MD Endocrinology at [facility] [phone] Future Orders Complete By Expires ?? EKG 12 Lead [EKG1 Custom] 08/14/2017 02/13/2018 ?? Process Instructions: ? Scheduling Instructions: ? Questions: ? Which location will this be performed?: [facility] ?? Is a rhythm strip needed?: No ?? If EKG Reason is Pre-op Evaluation, indicate diagnosis for surgery.: ?? XR Chest PA & Lateral (Generic) [[id number] Custom] 08/14/2017 02/13/2018 ?? Process Instructions: ? Scheduling Instructions: ? Questions: ? Where will study be performed?: [facility] ?? Portable exam?: ?? Reason for exam and clinical history: CABG x 3 ?? Other pertinent information: ?? Stat read required?: ?? Date of injury if applicable: ?? Requested Time: ?? Referral to Cardiac Rehab [WLK059 Custom] As directed ? Process Instructions: ?? [...] RN - 07/14/2017 2:34 PM EST The patient/ict sales representative has been provided a list of Home Health Agencies/DME vendors which serve their preferred geographic area. A letter describing our affiliations was reviewed with them and theywere educated about their right to choose where referrals are placed. Patient requests referral to [facility] PHONE: [phone] FAX: [phone] Expected date of discharge: 07/14 Referral routed to the Metal Casting Trades Worker for matching with agency/vendor and to [...] day to have your insulin doses adjusted. [facility] Endocrine clinic office Kathie Carrera APRN [facility] Endocrinology Diabetes Management Pager [phone] minutes of this 35 minute visit was spent with the patient in counseling on diabetes and treatment plan, reviewing all glucose and insulin data as well as relevant laboratory results with the patient, and coordination of care on the inpatient unit including nursing and primary team. Zulma Andres, RN - 07/14/2017 10:30 AM EST The patient/ict sales representative has been provided a list of Home Health Agencies/DME vendors which serve their preferred geographic area. A letter describing our affiliations was reviewed with them and theywere educated about their right to choose where referrals are placed. Patient requests referral to : Yasmani Munguia ([facility] [place] [facility]-is in [place]) PHONE: [phone] FAX: [phone]. Expected date of discharge: 07/14/17 Referral routed to the Metal Casting Trades Worker for matching with agency/vendor and to [...] hours. If BG remains greater than 240, banpnc71 units (no more than three times) &??call [...] Will continue to follow Katerin Azul APRN [facility] Endocrinology Diabetes Management Pager [phone] minutes of this 25 minute visit [...] of infiltration/extravasation Discussed plan of care with WATCH AND CLOCK REPAIRER and RN. Elevate exrtemity and apply intermittent Warm compresses. Name of MD contacted Dr. Shaw Brown 07/13/2017 @ 0673 Name of RN contacted Ale Rangel RN Name of Pharmacist if consulted NA Name of Plastics MD ( if consulted) NA (Mandatory photo for infiltrations/ extravasations scoring a stage 2 or greater, but recommended forstage 1)( include measuring tape and identifier in the photo) CARDIAC NURSE CARING FOR THIS PATIENT WILL CONTINUE [...] measuring tape and identifier in the photo) CARDIAC NURSE CARING FOR THIS PATIENT WILL CONTINUE [...] regard to both infiltrates addressed by this speech writer.All of Mr. Hoang's responses were entirely appropriate. Images of infiltrates attached here. Martha Sharp APRN - 07/13/2017 8:01 AM EST Cardiac Surgery Progress Note: ID: [id number] 72 year old male POD#6 s/p CABGx3 [...] discharge. ?? I have met with the patient/ict sales representative to discuss discharge planning needs. I have provided the [facility], Office of Care Management letter from the Agricultural Service Technician pertaining to rehab referrals. I have also provided a letter describing our affiliations within the [facility] and educated them about their right to choose where referrals are placed. ?? I reviewed the different levels of rehab including SNF, swing, acute and LTAC with the patient/ict sales representative. ?? The patient/ict sales representative has been provided a list of facilities within their preferred geographic area. ?? I have requested that the patient/ict sales representative provide at least three choices for referral. ?? The patient/ict sales representative have requested referrals to: ?? 1. . ?? 2. [facility] ?? 3. More to be entered ?? Expected date of discharge: 07/14 Note routed to Metal Casting Trades Worker who will communicate referrals to facilities and [...] hours. If BG remains greater than 240, lognxr44 units (no more than three times) & [...] hours. If BG remains greater than 240, yumfzr10 units (no more than three times) & call for new basal insulin orders. ??If less than 240 after two hours, give no insulin and resume prior schedule. Will continue to follow Katerin Patel. STACIE Azul [facility] Endocrinology Diabetes Management Pager [phone] minutes of this 35 minute visit was spent with the patient in counseling on diabetes and treatment plan, reviewing all glucose and insulin data as well as relevant laboratory results with the patient, and coordination of care on the inpatient unit including nursing and primary team. Makayla Stevenson APRN - 07/12/2017 9:52 AM EST Cardiac Surgery Progress Note: ID: [id number] 72 year old male POD#5 s/p CABGx3 [...] 07/11/2017 7:18 PM EST Patient arrived from [facility]. VSS. MSI dressing pulled [...] hours. If BG remains greater than 240, ebykyw27 units (no more than three times) & [...] AM EST Cardiac Surgery Progress Note: ID: [id number] 72 year old male POD#4 s/p CABGx3 [...] AM EST Cardiac Surgery Progress Note: ID: [id number] 72 year old male POD#3 s/p CABGx3 [...] Gas) No results found for: PHART, PO2ART, MER2JJR Assessment/Plan: 72 year old male POD#3 s/p [...] Encounter Note Patient Name: Gregory Hoang : [id number] MR#: [id number] Admit Date: 07/05/2017 4:20 PM Hospital Day 4 days Narrative: Patient was sitting in chair, hugging heart pillow, opened his eyes, nodding to come into room Assessment: Patient was sleepy. Intervention and Outcome: Introduced hot tar roofer helper services and patient reached his hand out in appreciation. Follow-up: Retrimmer remains available for support. Time in Direct [...] AM EST Report given to nurse staff to cover care Maddison Cee PA - 07/09/2017 9:00 AM EST Cardiac Surgery Progress Note: ID: [id number] 72 year old male POD#2 s/p CABGx3 [...] Surgeon on rounds. Signed: STEPHANIE Iqbal [facility] Section of Cardiac Surgery Date: 07/09/2017 Magnolia Santiago [facility] - 07/09/2017 1:[address] [...] when IABP d/c'ed. Gretchen Carolina, PT Pager [phone] Maddison Cee PA - 07/08/2017 11:27 AM EST Cardiac Surgery Progress Note: ID: [id number] 72 year old male POD#1 s/p CABGx3 [...] Surgeon on rounds. Signed: STEPHANIE Iqbal [facility] Section of Cardiac Surgery Date: 07/08/2017 [...] unit. NICK SEGAL MD 07/08/2017 Jay Munoz [facility] - 07/08/2017 4:[address] [...] in place in R femoral. No hematoma. 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 IABP in place in R femoral. MOTORCYCLE SERVICE TECHNICIAN- Intact Psych- Anxious Skin- Dry, no [...] EST Inpatient Cardiology Progress Note Patient Name: rGegory Hoang Date of Admission: 07/05/2017 ( Hospital [...] note for details. DAPHNE SHAHID MD Pager [phone] Jet Mckenna MD - 07/05/2017 6:48 PM EST Preliminary Cardiac Catheterization Procedure Note: Procedure(s) performed: Left heart cath, IABP insertion Access: Right WHARF WORKER-->8fr IABP A time-out was conducted prior [...] Shahid MD PCP: Lovely Vicente MD PCP#: [phone] Patient Active Problem List Diagnosis Code ??? [...] lab para professional urgently for ongoing STEMI. [facility] [...] - ISS - hold metformin - f/u [facility] #Home Meds - continue levothyroxine 175mcg - CPAP at night # Routine - DVT PPx: heparin drip - Diet: NPO - Code Status: FULL - Dispo: [facility] Cedric Bey MD Internal Medicine, PGY-2 Cardiology S1, Team Pager # [phone] CARDIOLOGY ATTENDING NOTE Patient: Gregory Hoang Date [...] amenable for PCI. DAPHNE SHAHID MD Pager [phone] documented in this encounter Miscellaneous Notes Consult Note - Daphne Shahid MD - 07/14/2017 11:46 AM EST Heart Failure Service Inpatient Consult Note Gregory Hoang Date of : 1945 Age: 72 y.o. Today's date: 07/14/17 PCP: Lovely Vicente MD REHABILITATOR: None Place of Service: [facility] [...] 33.75) performed by Yuan Webber MD at [facility] MAIN OR ??? PRO CABG, ARTERY-VEIN, TWO N/A 07/07/2017 @CABG, TWO VENOUS GRAFTS & ARTERIAL GRAFT (WRVU 7.93) performed by Yuan Webber MD at [facility] MAIN OR ??? PRO COLONOSCOPY, REMV LESN, SNARE 01/16/2014 COLONOSCOPY, POLYPECTOMY, REMOVAL LESION BY SNARE performed by Nohemi Jaimes MD at [facility] ENDOSCOPY ??? PRO ENDOSCOPY W/VIDEO-ASST VEIN HARVEST, CABG Right 07/07/2017 ENDOSCOPIC HARVEST VEIN(S) FOR CABG (WRVU 0.31) performed by Yuan Webber MD at [facility] MAIN OR ??? PRO THYROIDECTOMY 03/28/2013 THYROIDECTOMY, TOTAL OR COMPLETE performed by Manny Mcknight MD at [facility] MAIN OR Outpt Meds: Current [...] following studies: EKG 07/14/17: NSR 75 bpm, ANODE REBUILDER anterior infarct, LAD CXR 07/11/17: FINDINGS: Sternotomy wires. The patient has been extubated, left chest tube removed, and Dixon-Suzi catheter removed since the 07/07/2017 study. Atelectasis [...] was discussed with Zehra. Jaden Kelley MD Environmental Conservation Professor Pager [phone] CARDIOLOGY ATTENDING NOTE Patient: Gregory [...] heart failure clinic. DAPHNE SHAHID MD Pager [phone] Plan of Care - Alden Chavarria, QUALITY ASSURANCE CLERK - 07/14/2017 11:35 AM EST Problem: Patient [...] Discharge Disposition: home with assist Alden Chavarria, QUALITY ASSURANCE CLERK Pager: [phone] Inpatient Physical Therapy Problem: Acute Rehab Services [...] sit/sit to supine -- Bed Mobility Goal, [place] supervision required -- Bed Mobility Goal, [...] - 3 days -- Gait Training Goal, [place] supervision required -- Gait Training Goal, [...] days -- Transfer Training Goal, Activity Type ymj-ec-lwvif/rnleq-vz-bpm;wjc-jf-wawse/xxvef-kt-oqn;toilet -- Transfer Train Goal, [place] supervision required -- Transfer Training Goal, [...] keeping present for 2 days per family. Insulator Apprentice noted of frustrations, house keeping sent to room. Patient offered showered twice, refused. at bedside, frustrated that shower not complete, informed that patient had refused several times. requesting to see SPOT WASHER, paged sent to Martha, will come to bedside (middle of consult). not willing to wait, Martha notified that family had gone home. Encouraged to come for morning rounds a t 8am. Diabetes team at bedside - insulin adjustments made. Call cabello in reach. Continue to monitor. PLAN MOVING FORWARD: Ambulate, dressing changes BID, Please change drsg at 4am per Martha SPOT WASHER request. INDIVIDUALIZED FALL PREVENTION INTERVENTIONS: Patient-specific fall [...] levels on the lower side, 60ml of [employer] juice given after a FS of 80. [...] 07/13/17 0502 Interdisciplinary Rounds/Family Conf Participants manager case management;dietitian/nutrition services;nursing;occupational therapy;patient;pharmacy;physical therapy;physician Plan of [...] Anticipated Discharge Disposition: home with assist Pager: [phone] CLARISSA SEGAL, PT 07/12/2017 Physical Therapy Rehabilitation [...] to sit/sit to supine Bed Mobility Goal, [place] supervision required Bed Mobility Goal, Additional Goal adheres to psternal precautions for transfer Goal: Gait Training Goal Stand Alone Therapy Goal Outcome: Ongoing (Interventions Implemented as Appropriate) 07/12/17 1225 Gait Training Goal Gait Training Goal, Date Established 07/12/17 Gait Training Goal, Time to Achieve 2 - 3 days Gait Training Goal, [place] supervision required Gait Training Goal, Assist [...] 3 days Transfer Training Goal, Activity Type thd-qj-dkdnw/jczby-ub-kit;tok-rq-wjfan/wyrce-bm-kup;toilet Transfer Train Goal, [place] supervision required Transfer Training Goal, Additional Goal adheres to sternal precautions during transfer Consult Note - Octavia Vaughn RN - 07/12/2017 10:50 AM EST [facility] CARDIAC REHABILITATION Gregory Hoang was [...] IV site, amio to other piv and GRAPPLE OPERATOR at bedside to help assess, IV [...] staff, he stood and marched in place. [place] weak, wanting to sit back down. [...] Outcome: Ongoing (Interventions Implemented as Appropriate) 07/05/17 7795 Mutuality/Individual Preferences What Anxieties, Fears or Concerns [...] Health/Prescription Coverage: Primary Insurance: MEDICARE Secondary Insurance: [employer] [place] Prescription Coverage: yes Preferred Pharmacy: [facility] [place] Other: none Primary Care Provider: Lovely Vicente MD [phone] Patient/Caregiver Goals of Treatment:live and get my breath back Potential Needs for Transition of Care: Rehab/SNF: [facility]: NA DME: TBD Dialysis: na Community Resources: available Transportation: yes Other: none Anticipated Barriers to Discharge/Special Considerations: none Plan: Likely SNF Rehab before home A member of the Care Management team will continue to monitor progress, follow for continuity of care and assist with transition of care planning. ERLIN Weiss Pager: [phone] Consult Note - Katerin Azul RN - [...] potential to d/c gtt and start CF. adjunct faculty for medical terminology diabetes care: Medications - Outpatient treatment regimen recommendations pending based on the hospital course. Monitoring - continue BG tid ac & hs Diet - low fat/low carb diet Exercise - weight-bearing exercise 30 min/day, as tolerated Thank you for allowing us to provide care for your patient W/E coverage, Dr. Jeane Tatum, pager [phone] Katerin Patel. STACIE Azul Endocrinology Diabetes Management Pager [phone] Plan of Care - Stephanie Godoy RN [...] Webber MD - 07/07/2017 6:27 PM EST [facility] Operative Note Patient Name: Gregory Hoang : [id number] MR#: [id number] Case Date: 07/07/2017 Surgeon: Surgeon(s) and Role: * Yuan Webber MD - Primary * Michael Drake PA - Physician Brake Tester * Linda Flores PA - Physician Brake Tester Preoperative diagnosis: 3VD Postoperative diagnosis: CAD, severe [...] Operative Note Patient Name: Gregory Hoang : [id number] MR#: [id number] Case Date: 07/07/2017 Surgeon: Surgeon(s) and Role: * Yuan Webber MD - Primary * Michael Drake PA - Physician Brake Tester * Linda Flores PA - Physician Brake Tester Preoperative diagnosis: 3VD Postoperative diagnosis: CAD, severe [...] code status: Full Code Katty Davidjose, MS3 [facility] Cardiology S1 (Pager [phone]) Plan of Care - Emelia Ibarra RN [...] at [facility] ENDOSCOPY ??? PRO THYROIDECTOMY 03/28/2013 THYROIDECTOMY, TOTAL OR COMPLETE performed by Manny Mcknight MD at [facility] MAIN OR Social History: Social [...] with other involved physicians Yuan Webber MD [phone] Med Student Progress Note - Katty Hahn [...] Dispo: [facility] Katty Hahn, M3 [facility] Cardiology S1 (Pager [phone]) Plan of Care - Stephanei Godoy RN - 07/06/2017 5:00 AM EST [...] Zulma Dolan MD [facility] [address] [place] [address] (Wo lissa) 05/28/2022 Laboratory Appointment Lab 05/28/2022 Office Visit Cardiology Zulma Dolan MD [facility] [place] [address] Liz Poole PA [facility] [place] [address] 06/10/2022 Office Visit Dermatology Laura Scherer MD [facility] [address] TEJA GR-DERMAT OLOG[place], [place] [address] (Wo rk) Scheduled Orders Name [...] procedure are i n the results section. REPAIRER ENGINE PRODUCTION SCAN 07/15/2017 12:00 Res ults for this [...] Routine 07/08/2017 4:00 Results f or this ([facility] AM EST procedure are i n the [...] Routine 07/06/2017 7:40 Results f or this ([facility] PM EST procedure are i [...] section. TYPE AND SCREEN Routine 07/06/2017 12:00 ([facility]SHANDA[place] PM EST APTT STAT 07/06/2017 [...] Routine 07/06/2017 8:10 Results f or this ([facility] AM EST procedure are i [...] Routine 07/05/2017 8:20 Results f or this ([facility] PM EST procedure are i [...] Timed 07/05/2017 4:55 Results f or this ([facility] PM EST procedure are i [...] 2017 EXAMINATION: XR CHEST PA AND LATERAL (TappTimeIC) CLINICAL HISTORY: CABG x 3 TECHNIQUE: PA [...] Teague APRN IMG DX ORDERABLES SCAN DOC: REPAIRER ENGINE PRODUCTION (07/15/2017 12:00 AM EST) Narrative 07/15/2017 12:00 [...] [facility] mg[facility]dL [facility] Comment: Supplemental [...] City/[facility]/[place] [address] POCT Glucose (07/14/2017 7:52 AM EST) athologist Signature POC Glucose 126 65 - 199 [facility] mg/dL [facility] Comment: Supplemental ranges: <140 mg/dL before meals <180 mg/dL all other times of the day Specimen Anatomical Collection Method Collection Time Receive d Time (Source) Location / / Volume Laterality Blood specimen 07/14/2017 7:52 AM 017 7:52 (specimen) EST AM EST Yuan Webber MD POINT OF CARE TEST ORDERABLE S Performing Organization Address City/State/[place] [address] (ABNORMAL) Prothrombin Time (07/14/2017 [...] APRN HEMATOLOGY ORDERABLES Performing Organization Address City/[facility]/[place] [address] Potassium (07/14/2017 4:46 AM EST) athologist Signature Potassium 4.3 3.5 - 5.0 [facility] mmol/L [facility] [...] City/[facility]/[place] [address] POCT Glucose (07/14/2017 4:34 AM EST) athologist Signature POC Glucose 115 65 - 199 [facility] mg/dL [facility] Comment: Supplemental [...] City/State/ZIP Code Phon e Number [place] [id number] POCT Glucose (07/13/2017 11:33 PM EST) athologist Signature POC Glucose 132 65 - 199 [place]HA[place] mg/dL [place] [...] Address City/State/ZIP Code Phon e Number [address] POCT Glucose (07/13/2017 9:25 [...] Address City/State/ZIP Code Phon e Number [address] POCT Glucose (07/13/2017 4:55 PM EST) athologist Signature POC Glucose 79 65 - 199 [place] mg/dL [place] [...] Organization Address City/State/[place] [address] POCT Glucose (07/13/2017 11:16 AM EST) athologist Signature POC Glucose 163 65 - 199 [facility] mg/dL [facility] Comment: Supplemental [...] Address City/State/ZIP Code Phon e Number [address] POCT Glucose (07/13/2017 8:07 AM EST) athologist Signature POC Glucose 96 65 - [address] [facility] mg/dL [facility] Comment: Supplemental [...] Address City/State/ZIP Code Phon e Number [address] (ABNORMAL) Prothrombin Time (07/13/2017 [...] Organization Address City/State/[place] [address] (ABNORMAL) Basic Metabolic Panel (non-fasting) (07/13/2017 4:26 AM EST) athologist Signature Glucose Lvl 95 65 - 199 [facility] mg/dL [facility] [...] [facility] Estimated GFR 60 >=60 [facility] Comment: The reported eGFR should be multiplied b y 1.2 for patients. The MDRD is not an appropriate measure o f renal function for patients with body mass extremes or in patients with acute kidney failure. [email or web address] (d.b.a. Blue Kangaroo)/DHnkdep [email or web address] Specimen Anatomical Collection Method Collection Time Receive d Time (Source) Location / / Volume Laterality Blood specimen 07/13/2017 4:26 AM 017 4:46 (specimen) EST AM EST Resulting Agency Comment Spec In Lab Makayla Wilson APRN CHEMISTRY ORDERABLES Performing Organization Address City/[facility]/ZIP Code Phon e Number [address] POCT Glucose (07/13/2017 3:52 AM EST) athologist Signature POC Glucose 93 65 - 199 [facility] RYAN mg/dL [facility] Comment: [...] City/[facility]/ZIP Code Phon e Number [address] POCT Glucose (07/13/2017 12:21 [...] City/[facility]/[place] [address] POCT Glucose (07/12/2017 8:22 [...] Address City/State/ZIP Code Phon e Number [address] POCT Glucose (07/12/2017 4:02 [...] Address City/State/ZIP Code Phon e Number [address] POCT Glucose (07/12/2017 11:28 AM EST) athologist Signature POC Glucose 164 65 - 199 [facility] RYAN mg/dL [facility] Comment: [...] Address City/State/ZIP Code Phon e Number [address] POCT Glucose (07/12/2017 7:34 AM EST) athologist Signature POC Glucose 109 65 - 199 [facility] R[facility] mg/dL [facility] Comment: [...] Organization Address City/State/[place] [address] (ABNORMAL) Basic Metabolic Panel (non-fasting) (07/12/2017 4:11 AM EST) P athologist Signature Glucose Lvl 92 65 - 199 [facility] mg/dL [facility] [...] or in patients with acute kidney failure. [email or web address] (d.b.a. Blue Kangaroo)/DHnkdep [email or web address] (d.b.a. Blue Kangaroo)/DHMCnkf Specimen Anatomical Collection Method Collection Time Receive d Time (Source) Location / / Volume Laterality Blood specimen 07/12/2017 4:11 AM 017 8:57 (specimen) EST AM EST Resulting Agency Comment Spec In Lab Makayla Wilson APRN CHEMISTRY ORDERABLES Performing Organization Address City/State/[place] [address] (ABNORMAL) Prothrombin Time (07/12/2017 [...] [place] STACIE HEMATOLOGY ORDERABLES Performing Organization Address City/[facility]/[place] [address] Potassium (07/12/2017 4:11 AM EST) athologist Signature Potassium 3.8 3.5 - 5.0 [facility] mmol/L [facility] [...] Agency Comment Spec In Lab Makayla Dejesusfield RECEIVING OPERATOR CHEMISTRY ORDERABLES Performing Organization Address City/[facility]/[place] [address] POCT Glucose (07/12/2017 4:10 AM EST) athologist Signature POC Glucose 90 65 - 199 [facility]/dL [facility] Comment: Supplemental [...] Address City/State/ZIP Code Phon e Number [address] POCT Glucose (07/11/2017 11:57 PM EST) athologist Signature POC Glucose 98 65 - 199 [facility] mg/dL [facility] Comment: Supplemental [...] Address City/State/ZIP Code Phon e Number [address] POCT Glucose (07/11/2017 8:32 PM EST) athologist Signature POC Glucose 146 65 - 199 [facility] mg/dL [facility] Comment: Supplemental ranges: <140 mg/dL before meals <180 mg/dL all other times of the day Specimen Anatomical Collection Method Collection Time Receive d Time (Source) Location / / Volume Laterality Blood specimen 07/11/2017 8:32 PM 017 8:32 (specimen) EST PM EST Yuan Webber MD POINT OF CARE TEST ORDERABLE S Performing Organization Address City/State/[place] [address] XR Chest PA & [...] e xtubated, left chest tube removed, and Dixon-Suzi catheter removed since the study. Atelectasis at [...] e xtubated, left chest tube removed, and Dixon-Suzi catheter removed since the study. Atelectasis at [...] Address City/State/ZIP Code Phon e Number [address] POCT Glucose (07/11/2017 11:55 [...] City/[facility]/ZIP Code Phon e Number [address] POCT Glucose (07/11/2017 7:53 [...] Organization Address City/State/[place] [address] POCT Glucose (07/11/2017 4:22 AM EST) athologist Signature POC Glucose 151 65 - 199 [place] mg/dL [place] [...] City/[facility]/[place] [address] Potassium (07/11/2017 2:20 AM EST) athologist Signature Potassium 4.5 3.5 - 5.0 [facility] mmol/L [facility] Comment: Please [...] City/[facility]/[place] [address] POCT Glucose (07/11/2017 12:17 AM EST) athologist Signature POC Glucose 162 65 - 199 [place] mg/dL [place] [...] City/[facility]/[place] [address] POCT Glucose (07/10/2017 8:47 [...] Organization Address City/State/[place] [address] POCT Glucose (07/10/2017 4:06 PM EST) athologist Signature POC Glucose 131 65 - 199 [place] mg/dL [place] [...] City/[facility]/[place] [address] POCT Glucose (07/10/2017 3:08 PM EST) athologist Signature POC Glucose 151 65 - 199 [place] mg/dL [place] [...] Organization Address City/State/[place] [address] POCT Glucose (07/10/2017 2:25 PM EST) athologist Signature POC Glucose 146 65 - 199 [facility] R[facility] mg/dL [facility] Comment: [...] Address City/State/ZIP Code Phon e Number [address] POCT Glucose (07/10/2017 1:23 [...] City/[facility]/ZIP Code Phon e Number [address] POCT Glucose (07/10/2017 11:52 [...] City/[facility]/[place] [address] POCT Glucose (07/10/2017 11:01 [...] Address City/State/ZIP Code Phon e Number [address] POCT Glucose (07/10/2017 9:54 AM EST) athologist Signature POC Glucose 160 65 - 199 [place]HA[place] mg/dL [facility] Comment: Supplemental ranges: <140 mg/dL before meals <180 mg/dL all other times of the day Specimen Anatomical Collection Method Collection Time Receive d Time (Source) Location / / Volume Laterality Blood specimen 07/10/2017 9:54 AM 017 9:54 (specimen) EST AM EST Yaun Webber MD POINT OF CARE TEST ORDERABLE S Performing Organization Address City/[facility]/ZIP Code Phon e Number [address] POCT Glucose (07/10/2017 8:58 AM EST) athologist Signature POC Glucose 183 65 - 199 [place] mg/dL [place] [...] Address City/State/ZIP Code Phon e Number [address] POCT Glucose (07/10/2017 8:01 AM EST) athologist Signature POC Glucose 173 65 - 199 [facility] R[facility] mg/dL [facility] Comment: [...] Address City/State/ZIP Code Phon e Number [address] POCT Glucose (07/10/2017 7:05 [...] Address City/State/ZIP Code Phon e Number [address] POCT Glucose (07/10/2017 6:00 AM EST) athologist Signature POC Glucose 162 65 - 199 [facility] mg/dL [facility] Comment: Supplemental ranges: <140 mg/dL before meals <180 mg/dL all other times of the day Specimen Anatomical Collection Method Collection Time Receive d Time (Source) Location / / Volume Laterality Blood specimen 07/10/2017 6:00 AM 017 6:00 (specimen) EST AM EST Yuan Webber MD POINT OF CARE TEST ORDERABLE S Performing Organization Address City/State/[place] [address] (ABNORMAL) Differential, Automated (07/10/2017 4:28 AM EST) [facility] gist Method Time Signature Neutrophils % 87.9 % [facility] Neutr Abs (ANC) 10.70 (H) 1.70 - [facility] 6.10 [facility] x10(3)/[facility] L LABORATORY Lymphocytes % 3.9 % [facility] Lymphocytes Abs 0.5 (L) 0.9 - 3.2 [facility] x10(3)/[facility] LABORATORY Monocytes % 7.0 % [facility] Monocyte Abs 0.8 0.3 - 0.9 [facility] x10(3)/[facility] LABORATORY Eosinophils % 0.3 % [facility] Eosinophils Abs 0.0 0.0 - 0.4 [facility] x10(3)/[facility] LABORATORY Basophils % 0.2 % [facility] Basophils Abs 0.0 0.0 - 0.1 [facility] x10(3)/[facility] LABORATORY Immature [...] Comment Spec In Lab Yuan Webbre MD HEMATOLOGY ORDERABLES Performing Organization Address City/State/[place] [address] (ABNORMAL) Hemogram (07/10/2017 4:28 AM EST) Analysis Performed At Patho logist Time Signature WBC 12.2 (H) 4.0 - 9.5 [facility] x10(3)/[facility] LABORATORY RBC 3.31 (L) 4.58 - [facility] 5.54 [facility] x10(6)/[facility] LABORATORY Hemoglobin 9.8 (L) 13.7 - [facility] 16.5 gm/dL [facility] Hematocrit 30.0 (L) 40.5 - [facility] 48.5 % [facility] MCV 90.6 82.9 - [facility] 93.1 fL [facility] MCH 29.6 27.5 [facility] 32.1 pg [facility] MCHC 32.7 32.0 - [facility] 35.7 gm/dL [facility] Platelets 135 (L) 145 - 357 [facility] x10(3)/[facility] LABORATORY RDWSD 50.8 (H) 36.0 - [facility] 45.0 [facility] LABORATORY RDWCV 15.4 (H) 11.4 - [facility] 13.8 % [facility] MPV 10.0 7.6 - 12.9 [facility] LABORATORY nRBC % Auto 0.0 % [facility] nRBC Abs Auto 0.000 0.000 - [facility] 0.000 [facility] x10(3)/[facility] LABORATORY Specimen Anatomical Collection Method Collection Time Receive d Time (Source) Location / / Volume Laterality Blood specimen 07/10/2017 4:28 AM 017 4:36 (specimen) EST AM EST Resulting Agency Comment Spec In Lab Yuan Webber MD HEMATOLOGY ORDERABLES Performing Organization Address City/State/[place] [address] (ABNORMAL) Basic Metabolic Panel (non-fasting) (07/10/2017 4:28 AM EST) athologist Signature Glucose Lvl 178 65 - 199 [facility] mg/dL [facility] [...] [facility] Estimated GFR 60 >=60 [facility] Comment: The reported eGFR should be multiplied b y 1.2 for patients. The MDRD is not an appropriate measure o f renal function for patients with body mass extremes or in patients with acute kidney failure. [email or web address] [email or web address] Specimen Anatomical Collection Method Collection Time Receive d Time (Source) Location / / Volume Laterality Blood specimen 07/10/2017 4:28 AM 017 4:36 (specimen) EST AM EST Resulting Agency Comment Spec In Lab Yuan Webber MD CHEMISTRY ORDERABLES Performing Organization Address City/[facility]/ZIP Code Phon e Number [address] POCT Glucose (07/10/2017 4:26 AM EST) P athologist Signature POC Glucose 176 65 - 199 [facility] mg/dL [facility] Comment: Supplemental ranges: <140 mg/dL before meals <180 mg/dL all other times of the day Specimen Anatomical Collection Method Collection Time Receive d Time (Source) Location / / Volume Laterality Blood specimen 07/10/2017 4:26 AM 017 4:26 (specimen) EST AM EST Yuan Webber MD POINT OF CARE TEST ORDERABLE S Performing Organization Address City/State/[place] [address] (ABNORMAL) POCT Glucose (07/10/2017 3:06 AM EST) P athologist Signature POC Glucose 204 (H) 65 - 199 [facility] mg/dL [facility] Comment: Supplemental [...] City/[facility]/[place] [address] (ABNORMAL) POCT Glucose (07/10/2017 [...] City/[facility]/[place] [address] POCT Glucose (07/10/2017 1:09 AM EST) P athologist Signature POC Glucose 196 65 - 199 [place]HA[place] mg/dL [place] [...] Organization Address City/State/[place] [address] POCT Glucose (07/10/2017 12:10 [...] Address City/State/ZIP Code Phon e Number [address] POCT Glucose (07/09/2017 11:01 PM EST) athologist Signature POC Glucose 140 65 - 199 [place] mg/dL [place] [...] City/[facility]/ZIP Code Phon e Number [address] POCT Glucose (07/09/2017 10:05 PM EST) athologist Signature POC Glucose 144 65 - 199 [place]HA[place] mg/dL [place] [...] Organization Address City/State/[place] [address] POCT Glucose (07/09/2017 9:31 [...] Address City/State/ZIP Code Phon e Number [address] POCT Glucose (07/09/2017 9:03 [...] Address City/State/ZIP Code Phon e Number [address] POCT Glucose (07/09/2017 8:09 [...] Address City/State/ZIP Code Phon e Number [address] POCT Glucose (07/09/2017 5:40 PM EST) athologist Signature POC Glucose 155 65 - 199 [facility] R[facility] mg/dL [facility] Comment: [...] Address City/State/ZIP Code Phon e Number [address] POCT Glucose (07/09/2017 4:24 [...] City/[facility]/ZIP Code Phon e Number [address] POCT Glucose (07/09/2017 3:19 [...] City/[facility]/[place] [address] POCT Glucose (07/09/2017 2:26 PM EST) athologist Signature POC Glucose 179 65 - 199 [place] mg/dL [place] [...] Organization Address City/State/[place] [address] (ABNORMAL) POCT Glucose (07/09/2017 1:29 PM EST) P athologist Signature POC Glucose 210 (H) 65 - 199 [facility] mg/dL [facility] Comment: [...] Organization Address City/State/[place] [address] POCT Glucose (07/09/2017 12:20 PM EST) athologist Signature POC Glucose 172 65 - 199 [facility] mg/dL [facility] Comment: [...] Organization Address City/State/[place] [address] POCT Glucose (07/09/2017 11:24 AM EST) athologist Signature POC Glucose 156 65 - 199 [facility] mg/dL [facility] Comment: [...] Organization Address City/State/[place] [address] POCT Glucose (07/09/2017 11:11 AM EST) athologist Signature POC Glucose 172 65 - 199 [place] ZHA[place] mg/dL [place] [...] Address City/State/ZIP Code Phon e Number [address] POCT Glucose (07/09/2017 10:08 [...] Address City/State/ZIP Code Phon e Number [address] POCT Glucose (07/09/2017 8:02 [...] Organization Address City/State/[place] [address] (ABNORMAL) BLOOD GAS 2 ARTERIAL (07/09/2017 5:37 AM EST) Analysis Performed At Patho logist Time Signature pH Art 7.36 7.35 - [facility] 7.45 [facility] pCO2 Art 38 35 - 45 [facility] mmHg [facility] pO2 Art 79 (L) 85 - 104 [facility] LABORATORY HCO3 Art 20.9 20.0 - [facility] 26.0 [facility] mmol/L [facility] LAB[facility]ORY BE Art -4.6 (L) -3.0 - 3.0 [facility] mmol/L [facility] Hgb Blood Gas 10.5 (L) 13.7 - [facility] 16.5 gm/dL [facility] O2HB Art 93.8 (L) 94.0 - [facility] 97.0 % [facility] COHB Art 0.3 % [facility] Comment: Nonsmokers: 0.5-1.5% COHB Smokers: Variable, but usually less than 10% Toxic: 20-30% COHB Lethal: Greater than 60% COHB METHB Art 0.6 <=1.5 % [facility] Na Whole Blood 141 135 [...] [facility] FIO2 Art 40 % [facility] PF Ratio Art 198 [facility] LAB[facility]ORY Specimen Anatomical Collection Method Collection Time Receive d Time (Source) Location / / Volume Laterality Blood specimen 07/09/2017 5:37 AM 017 5:37 (specimen) EST AM EST Yuan Webber MD CHEMISTRY ORDERABLES Performing Organization Address City/[facility]/ZIP Code Phon e Number [address] POCT Glucose (07/09/2017 3:27 AM EST) athologist Signature POC Glucose 192 65 - 199 [facility] mg/dL [facility] Comment: Supplemental ranges: <140 mg/dL before meals <180 mg/dL all other times of the day Specimen Anatomical Collection Method Collection Time Receive d Time (Source) Location / / Volume Laterality Blood specimen 07/09/2017 3:27 AM 017 3:27 (specimen) EST AM EST Yuan Webber MD POINT OF CARE TEST ORDERABLE S Performing Organization Address City/State/[place] [address] (ABNORMAL) Basic Metabolic Panel (non-fasting) (07/09/2017 2:30 AM EST) athologist Signature Glucose Lvl 179 65 - 199 [facility] mg/dL [facility] [...] or in patients with acute kidney failure. [email or web address] [email or web address] Specimen Anatomical Collection Method Collection Time Receive d Time (Source) Location / / Volume Laterality Blood specimen Venous Draw / 07/09/2017 2:30 AM 2016 2:42 (specimen) Unknown EST AM EST Resulting Agency Comment Spec In Lab Yuan Webber MD CHEMISTRY ORDERABLES Performing Organization Address City/[facility] [place] [address] (ABNORMAL) Potassium (07/09/2017 2:30 AM EST) P athologist Signature Potassium 5.1 (H) 3.5 - 5.0 [facility] mmol/L [facility] HOSPITAL LABORATORY [...] ORDERABLES Performing Organization Address City/[facility]/ZIP [facility] [place] [address] (ABNORMAL) Hemogram (07/09/2017 2:30 AM EST) Analysis Performed At Patho logist Time Signature WBC 12.5 (H) 4.0 - 9.5 [facility] x[facility](3[facility] LABORATORY RBC 3.38 (L) 4.58 - [place] 5.54 [facility] x10(6)/[facility] LABORATORY Hemoglobin 10.1 (L) 13.7 - [place] ZHAORYAN 16.5 gm/dL [facility] LABORATORY Hematocrit 30.3 (L) 40.5 - [place] 48.5 % [facility] LABORATORY MCV 89.6 82.9 - [facility] 93.1 [facility] LABORATORY MCH 29.9 27.5 - [place] ZHAORYAN 32.1 pg [facility] LABORATORY MCHC 33.3 32.0 - [place] ZHAORYAN 35.7 gm/dL [facility] LABORATORY Platelets 127 (L) 145 - 357 [facility] x10(3)/[facility] LABORATORY RDWSD 49.3 (H) 36.0 - [facility] 45.0 [facility] LABORATORY RDWCV 15.2 (H) 11.4 - [facility] RYAN 13.8 % [facility] LABORATORY MPV 9.9 7.6 - 12.9 [facility] LABORATORY nRBC % Auto 0.0 % [facility] LABORATORY nRBC Abs Auto 0.000 0.000 - [place] ZHAORYAN 0.000 [facility] x10(3)/[facility] LABORATORY Specimen Anatomical Collection Method Collection Time Receive d Time (Source) Location / / Volume Laterality Blood specimen 07/09/2017 2:30 AM 017 2:41 (specimen) EST AM EST Resulting Agency Comment Spec In Lab Yuan Webber MD HEMATOLOGY ORDERABLES Performing Organization Address City/State/[place] [address] POCT Glucose (07/09/2017 2:10 AM EST) P athologist Signature POC Glucose 169 65 - 199 [facility] mg/dL [facility] LABORATORY [...] Address City/State/ZIP Code Phon e Number [address] POCT Glucose (07/09/2017 1:01 AM EST) P athologist Signature POC Glucose 173 65 - 199 K[place]ALINA DAVIS mg/dL [facility] LABORATORY Comment: [...] City/[facility]/[place] [address] Blood culture (07/09/2017 12:40 AM EST) [facility] gist Method Time Signature Blood Culture No growth KATALINA DAVIS at 5 days. [facility] LABORATORY Specimen Anatomical Collection Method Collection Time Receive d Time (Source) Location / / Volume Laterality Blood specimen STRUCTURE OF RIGHT 07/09/2017 12:40 3:58 (specimen) UPPER LIMB / AM EST AM EST Unknown Resulting Agency Comment Spec In Lab Yuan Webber MD MICROBIOLOGY - BLOOD ORDERAB LES Performing Organization Address City/[facility]/ZIP Code Phon [place] [address] Blood culture (07/09/2017 12:30 AM EST) Patholo gist Method Time Signature Blood Culture No growth KATALINA DAVIS at 5 days. [facility] LABORATORY Specimen Anatomical Collection Method Collection Time Receive d Time (Source) Location / / Volume Laterality Blood specimen STRUCTURE OF LEFT 07/09/2017 12:30 06/25 3:59 (specimen) UPPER LIMB / AM EST AM EST Unknown Resulting Agency Comment Spec In Lab Yuan Webber MD MICROBIOLOGY - BLOOD ORDERAB LES Performing Organization Address City/[facility]/ZIP Code Phon [place] [address] (ABNORMAL) Urinalysis Microscopic Exam (07/09/2017 12:05 AM EST) Analysis Performed At Patho logist Time Signature RBC UA 32 (H) 0 - 3 /HPF [facility] LABORATORY WBC UA 5 (H) 0 - 3 /HPF [facility] LABORATORY Squam Epith UA <1 <=4 /HPF [facility] LABORATORY Hyaline Cast 17 (H) 0 - 2 /LPF [facility] LABORATORY Gran Cast UA 1 (H) <=0 /LPF [facility] LABORATORY Uric Ac Bianca Rare (A) None /HPF [facility] LABORATORY Specimen (Source) Anatomical Collection Method Collection Time Re ceived Time Location / / Volume Laterality Urine specimen 07/09/2017 12:05 7 obtained via AM EST 12:39 AM EST indwelling urinary catheter (specimen) Resulting Agency Comment Spec In Lab Yuan Webber MD URINE ORDERABLES Performing Organization Address City/State/[place] [address] (ABNORMAL) Urinalysis with reflex Culture (07/09/2017 12:05 AM EST) Patholo gist Method Time Signature Glucose UA Negative Negative [facility] mg/dL [facility] LABOR[facility]ORY Protein UA 30 (A) Negative [facility] mg/dL [facility] LABORATORY Bilirubin UA Negative Negative [facility] mg/dL [facility] LAB[facility] Comment: Clinical correlation required for positi ve Urine Bilirubin results as false positive may occur with some drugs and d rug related products. If a false positive is suspected a serum total bili yeager should be considered if clinically indicated. Urobilinogen UA Normal Normal mg/dL [facility] LABORATORY pH UA 5.0 5.0 - 8.0 [facility] LABORATORY Blood UA Moderate (A) Negative mg/dL [facility] LABORATORY Ketones UA Negative Negative mg/dL [facility] LABORATORY Nitrite UA Negative Negative [facility] LABORATORY Leukocytes UA Negative Negative [facility] LABORATORY Appearance UA Hazy (A) Clear [facility] LABORATORY Spec [place] UA 1.025 1.002 - 1.030 [facility] LABORATORY Color UA Yellow Yellow [facility] LABORATORY Culture Reflexed No [facility] LABORATORY Specimen (Source) Anatomical Collection Method Collection Time Re ceived Time Location / / Volume Laterality Urine specimen 07/09/2017 12:05 7 obtained via AM EST 12:39 AM EST indwelling urinary catheter (specimen) Resulting Agency Comment Spec In Lab Yuan Webber MD URINE ORDERABLES Performing Organization Address City/[facility]/ZIP Code Phon e Number [address] POCT Glucose (07/08/2017 11:01 PM EST) athologist Signature POC Glucose 191 65 - 199 [facility] mg/dL [facility] LAB[facility]ORY Comment: Supplemental [...] City/[facility]/ZIP Code Phon e Number [address] POCT Glucose (07/08/2017 10:04 PM EST) athologist Signature POC Glucose 198 65 - 199 [facility] mg/dL [facility] LAB[facility]ATORY Comment: Supplemental ranges: <140 mg/dL before meals <180 mg/dL all other times of the day Specimen Anatomical Collection Method Collection Time Receive d Time (Source) Location / / Volume Laterality Blood specimen 07/08/2017 10:04 7 (specimen) PM EST 10:04 PM EST Yuan Webber MD POINT OF CARE TEST ORDERABLE S Performing Organization Address City/State/[place] [address] Prepare Albumin 5% in [...] Organization Address City/State/[place] [address] POCT Glucose (07/08/2017 8:28 PM EST) athologist Signature POC Glucose 195 65 - 199 [facility] mg/dL [facility] LAB[facility]ORY Comment: Supplemental ranges: <140 mg/dL before meals <180 mg/dL all other times of the day Specimen Anatomical Collection Method Collection Time Receive d Time (Source) Location / / Volume Laterality Blood specimen 07/08/2017 8:28 PM 017 8:28 (specimen) EST PM EST Yuan Webber MD POINT OF CARE TEST ORDERABLE S Performing Organization Address City/State/[place] [address] (ABNORMAL) POCT Glucose (07/08/2017 7:13 PM EST) athologist Signature POC Glucose 220 (H) 65 - 199 [facility] mg/dL [facility] LAB[facility]ORY Comment: Supplemental ranges: <140 mg/dL before meals <180 mg/dL all other times of the day Specimen Anatomical Collection Method Collection Time Receive d Time (Source) Location / / Volume Laterality Blood specimen 07/08/2017 7:13 PM 017 7:13 (specimen) EST PM EST Yuan Webber MD POINT OF CARE TEST ORDERABLE S Performing Organization Address City/State/[place] [address] POCT Glucose (07/08/2017 5:04 PM EST) athologist Signature POC Glucose 147 65 - 199 [facility] mg/dL [facility] LABORATORY [...] Organization Address City/State/[place] [address] (ABNORMAL) BLOOD GAS 2 ARTERIAL (07/08/2017 4:13 PM EST) Analysis Performed At Patho logist Time Signature pH Art 7.38 7.35 - [facility] 7.45 [facility] LABORATORY pCO2 Art 36 35 - 45 [facility] mmHg [facility] LABORATORY pO2 Art 91 85 - 104 [facility] LABORATORY HCO3 Art 20.9 20.0 - [facility] 26.0 [facility] mmol/L [facility] LABORATORY BE Art -4.2 (L) -3.0 - 3.0 [facility] mmol/L [facility] LABORATORY Hgb Blood Gas 11.7 (L) 13.7 - [facility] 16.5 gm/dL [facility] LABORATORY O2HB Art 95.1 94.0 - [facility] 97.0 % [facility] LABORATORY COHB Art 0.6 % [facility] LABORATORY Comment: Nonsmokers: 0.5-1.5% COHB Smokers: Variable, but usually less than 10% Toxic: 20-30% COHB Lethal: Greater than 60% COHB METHB Art 0.6 <=1.5 % [facility] LABORATORY Na Whole Blood 139 135 [...] [facility] FIO2 Art 40 % [facility] LABORATORY PF Ratio Art 228 [facility] LABORATORY Specimen Anatomical Collection Method Collection Time Receive d Time (Source) Location / / Volume Laterality Blood specimen 07/08/2017 4:13 PM 017 4:13 (specimen) EST PM EST Yuan Webber MD CHEMISTRY ORDERABLES Performing Organization Address City/[facility]/ZIP [facility] [place] [address] POCT Glucose (07/08/2017 4:01 PM EST) P athologist Signature POC Glucose 148 65 - 199 [facility] mg/dL [facility] Comment: Supplemental [...] City/[facility]/[place] [address] POCT Glucose (07/08/2017 3:21 PM EST) P athologist Signature POC Glucose 118 65 - 199 [facility] mg/dL [facility] Comment: Supplemental [...] Address City/State/ZIP Code Phon e Number [address] POCT Glucose (07/08/2017 2:01 PM EST) athologist Signature POC Glucose 129 65 - 199 [place] RYAN mg/dL [facility] LABORATORY Comment: [...] City/[facility]/ZIP Code Phon e Number [address] POCT Glucose (07/08/2017 11:53 [...] City/[facility]/ZIP Code Phon e Number [address] POCT Glucose (07/08/2017 11:04 AM EST) athologist Signature POC Glucose 181 65 - 199 [place]INA RYAN mg/dL [facility] [...] Organization Address City/State/[place] [address] (ABNORMAL) POCT Glucose (07/08/2017 9:24 AM EST) athologist Signature POC Glucose 203 (H) 65 - 199 [facility] mg/dL [facility] LABORATORY [...] Organization Address City/State/[place] [address] APTT (07/08/2017 8:40 AM EST) athologist Signature PTT 33 25 - 35 sec [facility] LABORATORY Comment: The recommended therapeutic range for fu ll dose, unfractionated heparin at [facility] is 80 ? 114 seconds. [...] City/[facility]/[place] [address] (ABNORMAL) Prothrombin Time (07/08/2017 [...] Organization Address City/State/[place] [address] (ABNORMAL) POCT Glucose (07/08/2017 7:38 AM EST) athologist Signature POC Glucose 232 (H) 65 - 199 [facility] mg/dL [facility] Comment: Supplemental [...] City/[facility]/[place] [address] (ABNORMAL) POCT Glucose (07/08/2017 7:07 AM EST) athologist Signature POC Glucose 234 (H) 65 - 199 [facility] mg/dL [facility] Comment: Supplemental [...] City/[facility]/[place] [address] (ABNORMAL) POCT Glucose (07/08/2017 6:04 AM EST) athologist Signature POC Glucose 225 (H) 65 - 199 [facility] mg/dL [facility] Comment: Supplemental ranges: <140 mg/dL before meals <180 mg/dL all other times of the day Specimen Anatomical Collection Method Collection Time Receive d Time (Source) Location / / Volume Laterality Blood specimen 07/08/2017 6:04 AM 017 6:04 (specimen) EST AM EST Yuan Webber MD POINT OF CARE TEST ORDERABLE S Performing Organization Address City/State/[place] [address] (ABNORMAL) POCT Glucose (07/08/2017 5:31 AM EST) athologist Signature POC Glucose 216 (H) 65 - 199 [facility] mg/dL [facility] Comment: Supplemental ranges: <140 mg/dL before meals <180 mg/dL all other times of the day Specimen Anatomical Collection Method Collection Time Receive d Time (Source) Location / / Volume Laterality Blood specimen 07/08/2017 5:31 AM 017 5:31 (specimen) EST AM EST Yuan Webber MD POINT OF CARE TEST ORDERABLE S Performing Organization Address City/State/[place] [address] (ABNORMAL) POCT Glucose (07/08/2017 4:52 AM EST) athologist Signature POC Glucose 257 (H) 65 - 199 [facility] mg/dL [facility] Comment: Supplemental ranges: <140 mg/dL before meals <180 mg/dL all other times of the day Specimen Anatomical Collection Method Collection Time Receive d Time (Source) Location / / Volume Laterality Blood specimen 07/08/2017 4:52 AM 017 4:52 (specimen) EST AM EST Daphne Shahid MD POINT OF CARE TEST ORDERABLE S Performing Organization Address City/State/[place] [address] (ABNORMAL) BLOOD GAS 2 ARTERIAL (07/08/2017 4:04 AM EST) Analysis Performed At Patho logist Time Signature pH Art 7.30 (L) 7.35 - [facility] 7.45 [facility] LABORATORY pCO2 Art 41 35 - 45 [facility] mmHg [facility] LABORATORY pO2 Art 83 (L) 85 - 104 [facility] LABORATORY HCO3 Art 19.6 (L) 20.0 - [facility] 26.0 [facility] mmol/L [facility] LABORATORY BE Art -6.8 (L) -3.0 - 3.0 [facility] mmol/L [facility] LABORATORY Hgb Blood Gas 12.2 (L) 13.7 - [facility] 16.5 gm/dL [facility] O2HB Art 93.5 (L) 94.0 - [facility] 97.0 % [facility] COHB Art 0.4 % [facility] LABORATORY Comment: Nonsmokers: 0.5-1.5% COHB Smokers: Variable, but usually less than 10% Toxic: 20-30% COHB Lethal: Greater than 60% COHB METHB Art 0.8 <=1.5 % [facility] LABORATORY Na [...] [facility] Comment: Noted by supervisor instrument maintenance. FIO2 Art 40 % [facility] LABORATORY PF Ratio Art 208 [facility] LABORATORY Specimen Anatomical Collection Method Collection Time Receive d Time (Source) Location / / Volume Laterality Blood specimen 07/08/2017 4:04 AM 017 4:04 (specimen) EST AM EST Daphne Shahid MD CHEMISTRY ORDERABLES Performing Organization Address City/State/ZIP Code Phon e Number [address] Scan, Peripheral Blood (07/08/2017 [...] City/[facility]/ZIP Code Phon e Number [address] (ABNORMAL) Differential, Automated (07/08/2017 4:00 AM EST) Patholo gist Method Time Signature Neutrophils % 85.4 % [facility] LABORATORY Neutr Abs (ANC) 16.07 (H) 1.70 - [facility] 6.10 [facility] x10(3)/[facility] L LABORATORY Lymphocytes % 3.5 % [facility] LABORATORY Lymphocytes Abs 0.6 (L) 0.9 - 3.2 [facility] x10(3)/[facility] LABORATORY Monocytes % 10.4 % [facility] LABORATORY Monocyte Abs 2.0 (H) 0.3 - 0.9 [facility] x10(3)/[facility] LABORATORY Eosinophils % 0.0 % [facility] LABORATORY Eosinophils Abs 0.0 0.0 - 0.4 [facility] x10(3)/[facility] LABORATORY Basophils % 0.1 % [facility] LABORATORY Basophils Abs 0.0 0.0 - 0.1 [facility] x10(3)/[facility] LABORATORY Immature [...] Abs 0.12 (H) 0.00 - 0.04 x10(3)/[facility] LABORATORY Specimen Anatomical Collection Method Collection Time Receive d Time (Source) Location / / Volume Laterality Blood specimen 07/08/2017 4:00 AM 017 4:09 (specimen) EST AM EST Resulting Agency Comment Spec In Lab Yuan Webber MD HEMATOLOGY ORDERABLES Performing Organization Address City/State/[place] [address] (ABNORMAL) Hemogram (07/08/2017 4:00 AM EST) Analysis Performed At Patho logist Time Signature WBC 18.8 (H) 4.0 - 9.5 [facility] x10(3)/[facility] LABORATORY RBC 4.00 (L) 4.58 - [facility] 5.54 [facility] x10(6)/[facility] LABORATORY Hemoglobin 11.9 (L) 13.7 - [facility] 16.5 gm/dL [facility] LABORATORY Hematocrit 35.9 (L) 40.5 - [facility] 48.5 % [facility] LABORATORY MCV 89.8 82.9 - [facility] 93.1 [facility] LABORATORY MCH 29.8 27.5 - [facility] RYAN 32.1 pg [facility] LABORATORY MCHC 33.1 32.0 - [facility] 35.7 gm/dL [facility] LABORATORY Platelets 232 145 - 357 [facility] x10(3)/[facility] LABORATORY RDWSD 47.6 (H) 36.0 - [facility] RYAN 45.0 [facility] RDWCV 14.5 (H) 11.4 - [facility] RYAN 13.8 % [facility] LABORATORY MPV 9.5 7.6 - 12.9 [facility] LABORATORY nRBC % Auto 0.0 % [facility] LABORATORY nRBC Abs Auto 0.000 0.000 - [facility] 0.000 [facility] x10(3)/[facility] LABORATORY Specimen Anatomical Collection Method Collection Time Receive d Time (Source) Location / / Volume Laterality Blood specimen 07/08/2017 4:00 AM 017 4:09 (specimen) EST AM EST Resulting Agency Comment Spec In Lab Yuan Webber MD HEMATOLOGY ORDERABLES Performing Organization Address City/[facility]/[place] [address] (ABNORMAL) Electrolytes panel (07/08/2017 4:00 AM EST) athologist Signature Sodium 139 135 - 145 [facility] mmol/L [facility] LABORATORY Potassium 4.7 3.5 - 5.0 [facility] mmol/L [facility] LABORATORY Comment: result [...] City/[facility]/[place] [address] (ABNORMAL) Cardiac Enzymes (LEB/CGP) (07/08/2017 4:00 AM EST) P athologist Signature Troponin-T 1.88 (H) 0.00 - [facility] 0.00 ng/mL [facility] [...] additional sample may be indicated. Reference: Third [place] Definition of Myocardial Infarction. Journal of the [...] Organization Address City/State/[place] [address] (ABNORMAL) Glucose, fasting (07/08/2017 4:00 AM EST) athologist Signature Glucose 287 (H) 65 - 99 [facility] Fasting mg/dL [facility] [...] CHEMISTRY ORDERABLES Performing Organization Address City/[facility] Code Phon e Number [address] (ABNORMAL) Creatinine (07/08/2017 4:00 AM EST) Analysis Performed At Patho logist Time Signature Creatinine 1.55 (H) 0.80 - [place] RYAN 1.50 mg/dL [facility] LABORATORY Estimated GFR 44 (L) >=60 [facility] LABORATORY Comment: The reported eGFR should be multiplied b y 1.2 for patients. The MDRD is not an appropriate measure o f renal function for patients with body mass extremes or in patients with acute kidney failure. http://Iwebalize.ChoozOn (d.b.a. [employer])/DHnkdep http://Gobooks/DHMCnkf Specimen Anatomical Collection Method Collection Time Receive d Time (Source) Location / / Volume Laterality Blood specimen 07/08/2017 4:00 AM 017 4:09 (specimen) EST AM EST Resulting Agency Comment Spec In Lab Yuan Webber MD CHEMISTRY ORDERABLES Performing Organization Address City/[facility]/ZIP Code Phon e Number [address] BUN (07/08/2017 4:00 AM EST) P athologist Signature BUN 16 10 - 20 [place] RYAN mg/dL [facility] LABORATORY Specimen Anatomical Collection Method Collection Time Receive d Time (Source) Location / / Volume Laterality Blood specimen 07/08/2017 4:00 AM 017 4:09 (specimen) EST AM EST Resulting Agency Comment Spec In Lab Yuan Webber MD CHEMISTRY ORDERABLES Performing Organization Address City/[facility]/ZIP Code Phon e Number [address] (ABNORMAL) POCT Glucose (07/08/2017 3:00 AM EST) P athologist Signature POC Glucose 273 (H) 65 - 199 [facility] mg/dL [facility] Comment: Supplemental [...] City/[facility]/[place] [address] (ABNORMAL) POCT Glucose (07/08/2017 1:57 AM EST) P athologist Signature POC Glucose 288 (H) 65 - 199 [facility] mg/dL [facility] Comment: Supplemental [...] City/[facility]/[place] [address] (ABNORMAL) POCT Glucose (07/08/2017 1:01 AM EST) P athologist Signature POC Glucose 315 (H) 65 - 199 [facility] mg/dL [facility] Comment: Supplemental ranges: <140 mg/dL before meals <180 mg/dL all other times of the day Specimen Anatomical Collection Method Collection Time Receive d Time (Source) Location / / Volume Laterality Blood specimen 07/08/2017 1:01 AM 017 1:01 (specimen) EST AM EST Daphne Shahid MD POINT OF CARE TEST ORDERABLE S Performing Organization Address City/State/[place] [address] (ABNORMAL) BLOOD GAS 2 ARTERIAL (07/08/2017 12:09 AM EST) athologist Signature pH Art 7.26 7.35 - [facility] (Critical) 7.45 [facility] LAB[facility]ORY Comment: Noted by supervisor instrument maintenance. pCO2 Art 41 35 - 45 mmHg [...] [facility] LABORATORY COHB Art 0.2 % [facility] LABORATORY Comment: Nonsmokers: 0.5-1.5% COHB Smokers: Variable, but usually less than 10% Toxic: 20-30% COHB Lethal: Greater than 60% COHB METHB Art 0.6 <=1.5 % [facility] Na Whole Blood 141 135 [...] [facility] Comment: Noted by supervisor instrument maintenance. FIO2 Art 40 % [facility] PF Ratio Art 240 [facility] Specimen Anatomical Collection Method Collection Time Receive d Time (Source) Location / / Volume Laterality Blood specimen Arterial Draw / 07/08/2017 12:09 2016 5:31 (specimen) Unknown AM EST AM EST Resulting Agency Comment Spec In Lab Samy Maldonado MD CHEMISTRY ORDERABLES Performing Organization Address City/[facility]/[place] [address] (ABNORMAL) POCT Glucose (07/07/2017 10:56 PM EST) P athologist Signature POC Glucose 292 (H) 65 - 199 [facility] mg/dL [facility] [...] Organization Address City/State/[place] [address] (ABNORMAL) BLOOD GAS 2 ARTERIAL (07/07/2017 10:04 PM EST) P athologist Signature pH Art 7.22 7.35 - [facility] (Critical) 7.45 [facility] Comment: Noted by supervisor instrument maintenance. pCO2 Art 42 35 - 45 mmHg [...] [facility] COHB Art 0.7 % [facility] Comment: Nonsmokers: 0.5-1.5% COHB Smokers: Variable, but usually less than 10% Toxic: 20-30% COHB Lethal: Greater than 60% COHB METHB Art 0.7 <=1.5 % [facility] Na Whole Blood 140 135 [...] [facility] Comment: Noted by supervisor instrument maintenance. FIO2 Art 40 % [facility] PF Ratio Art 235 [facility] Specimen Anatomical Collection Method Collection Time Receive d Time (Source) Location / / Volume Laterality Blood specimen 07/07/2017 10:04 7 (specimen) PM EST 10:04 PM EST Daphne Shahid MD CHEMISTRY ORDERABLES Performing Organization Address City/State/[place] [address] (ABNORMAL) Hemoglobin (07/07/2017 10:00 PM EST) athologist Signature Hemoglobin 12.8 (L) 13.7 - [facility] 16.5 gm/dL [facility] Specimen Anatomical Collection Method Collection Time Receive d Time (Source) Location / / Volume Laterality Blood specimen 07/07/2017 10:00 7 (specimen) PM EST 10:13 PM EST Resulting Agency Comment Spec In Lab Yuan Webber MD HEMATOLOGY ORDERABLES Performing Organization Address City/[facility] Phon e Number [address] (ABNORMAL) Potassium (07/07/2017 10:00 PM EST) athologist [facility] Potassium 3.4 (L) 3.5 - 5.0 [facility] mmol/L [facility] Comment: Please [...] Organization Address [facility] [place] [address] (ABNORMAL) POCT Glucose (07/07/2017 8:49 PM EST) athologist Signature POC Glucose 241 (H) 65 - 199 [facility] mg/dL [facility] Comment: Supplemental [...] City/[facility]/ZIP Code Phon e Number [address] Prepare Albumin 5% in [...] BLOOD BANK ORDERABLES Performing Organization Address City/[facility]/ZIP Code Phon e Number [address] EKG 12 Lead (07/07/2017 7:17 PM EST) Component Value Ref Range Test Analysis Performed Pathologis t Method Time At Signature Ventricular rate 75 BPM MUSE SYSTEM Atrial Rate 75 BPM MUSE SYSTEM P-R Interval 168 ms MUSE SYSTEM QRS Duration 104 ms MUSE SYSTEM Q-T Interval 462 ms MUSE SYSTEM QTC Calculated 515 ms MUSE SYSTEM (Bezet) Calculated P Rohwer 52 degrees MUSE SYSTEM Calculated R Rohwer -40 degrees MUSE SYSTEM Calculated T Rohwer 39 degrees MUSE SYSTEM INTERPRETATION Normal sinus [...] Signature pH Art 7.21 7.35 - [facility] (Critical) 7.45 [facility] Comment: Noted by supervisor instrument maintenance. pCO2 Art 50 (H) 35 - 45 [...] [facility] COHB Art 0.5 % [facility] Comment: Nonsmokers: 0.5-1.5% COHB Smokers: Variable, but usually less than 10% Toxic: 20-30% COHB Lethal: Greater than 60% COHB METHB Art 0.7 <=1.5 % [facility] Na Whole Blood 140 135 - 145 mmol/L [facility] K Whole Blood 3.0 (Critical) 3.5 - 5.0 mmol/L [facility] Comment: Noted by supervisor instrument maintenance. Please note: Patients with WBC >100,000 may [...] [facility] Comment: Noted by supervisor instrument maintenance. FIO2 Art 100 % [facility] PF Ratio Art 238 [facility] Specimen Anatomical Collection Method Collection Time Receive d Time (Source) Location / / Volume Laterality Blood specimen 07/07/2017 6:57 PM 017 6:57 (specimen) EST PM EST Daphne Shahid MD CHEMISTRY ORDERABLES Performing Organization Address City/State/[place] [address] (ABNORMAL) BLOOD GAS 2 ARTERIAL (07/07/2017 5:31 PM EST) athologist Signature pH Art 7.29 7.35 - [facility] (Critical) 7.45 [facility] Comment: Noted by supervisor instrument maintenance. pCO2 Art 48 (H) 35 - 45 [...] 60% COHB METHB Art 0.3 <=1.5 % [facility] Na Whole Blood 132 (L) [...] City/[facility]/[place] [address] Fibrinogen (07/07/2017 5:30 PM EST) athologist Signature Fibrinogen 224 180 - 510 [facility] mg/dL [facility] [...] City/[facility]/ZIP Code Phon e Number [address] APTT (07/07/2017 5:30 PM EST) athologist Signature PTT 30 25 - 35 sec [facility] Comment: The recommended therapeutic range for fu ll dose, unfractionated heparin at [facility] is 80 ? 114 seconds. [...] ORDERABLES Performing Organization Address City/[facility]/[place]IP [facility] [place] Number [address] (ABNORMAL) Prothrombin Time (07/07/2017 [...] City/State/ZIP Code Phon e Number [place] [id number]OS[address] (ABNORMAL) Hemogram (07/07/2017 5:30 PM EST) P athologist Signature WBC 19.6 (H) 4.0 - 9.5 [facility] x10(3)/[facility] LABORATORY RBC 3.08 (L) 4.58 - [facility] 5.54 [facility] x10(6)/[facility] LABORATORY Hemoglobin 9.2 (L) 13.7 - [facility] 16.5 gm/dL [facility] Hematocrit 28.0 (L) 40.5 - [facility] 48.5 % [facility] [...] CENTER LABORATORY nRBC % Auto 0.0 % [place] [...] Organization Address [facility] Phon e Number [address] Prepare Platelets, Apheresis (07/07/2017 5:00 PM EST) athologist Signature Dispensed? Yes [facility] Specimen Anatomical Collection Method Collection Time Receive d Time (Source) Location / / Volume Laterality Blood specimen 07/07/2017 5:00 PM 017 4:58 (specimen) EST PM EST Daphne Shahid MD BLOOD BANK ORDERABLES Performing Organization Address [facility] Phon e Number [address] Platelet count (07/07/2017 4:55 PM EST) athologist Signature Platelets 177 145 - 357 [facility] x10(3)/[facility] LABORATORY Plat Immature 1.5 0.0 - 7.4 [facility] Comment: Limitation of the Immature Platelet Frac tion (IPF)-May be less reliable when the platelet count is less than [id number] L due to statistical imprecision. The IPF [...] in a decreased state of production. References: [employer] The Clinical Value of the Immature Platelet Fraction (IPF) in Cell Recovery Document Number 10-1143 12/2010 [employer] The Role of the Imm ature [...] City/[facility]/[place] [address] (ABNORMAL) Hemoglobin and Hematocrit, blood (07/07/2017 4:55 PM EST) P athologist Signature Hemoglobin 9.1 (L) 13.7 - 16.5 [facility] gm/dL [facility] Comment: [...] City/[facility]/[place] [address] (ABNORMAL) BLOOD GAS 2 ARTERIAL (07/07/2017 4:38 PM EST) Analysis Performed At Patho logist Time Signature pH Art 7.37 7.35 - [facility] 7.45 [facility] pCO2 Art 44 35 - 45 [facility] LABORATORY pO2 Art 322 (H) 85 - 104 [place] HCO3 Art 24.9 20.0 - [facility] 26.0 [facility] mmol/L [facility] BE Art -0.4 -3.0 - 3.0 [facility] mmol/L [facility] Hgb Blood Gas 10.1 (L) 13.7 - [facility] 16.5 gm/dL [facility] O2HB Art 98.7 (H) 94.0 - [facility] 97.0 % [facility] COHB Art 0.1 % [facility] Comment: Nonsmokers: 0.5-1.5% COHB Smokers: Variable, but usually less than 10% Toxic: 20-30% COHB Lethal: Greater than 60% COHB METHB Art 0.3 <=1.5 % [facility] Na Whole Blood 130 (L) [...] HOSPITAL LABORATORY Comment: Noted by supervisor instrument maintenance. Note: ??Total bilirubin higher than 20 m [...] Organization Address City/State/[place] [address] (ABNORMAL) BLOOD GAS 2 VENOUS (07/07/2017 4:06 PM EST) Analysis Performed At Patho logist Time Signature pH Cody 7.31 (L) 7.32 - [facility] 7.42 [facility] pCO2 Cody 47 41 - 51 [facility] LABORATORY pO2 Cody 53 (H) 25 - 40 [facility] LABORATORY HCO3 Cody 22.7 mmol/L [facility] BE Cody -3.7 mmol/L [facility] Hgb Blood Gas 10.2 (L) 13.7 - [facility] 16.5 gm/dL [facility] O2HB Cody 81.0 % [facility] COHB Cody 1.0 % [facility] Comment: Nonsmokers: 0.5-1.5% COHB Smokers: Variable, but usually less than 10% Toxic: 20-30% COHB Lethal: Greater than 60% COHB METHB Cody 0.3 <=1.5 % [facility] Na Whole Blood 132 (L) [...] HOSPITAL LABORATORY Comment: Noted by supervisor instrument maintenance. Note: ??Total bilirubin higher than 20 m g/dL may lead to falsely low ionized calcium. CL Whole Blood 100 98 - 107 mmol/L [facility] Gluc Whole Bld 231 (H) 65 - 199 mg/dL [facility] Comment: Diabetes: >=200 mg/dL plus symp toms Lactate WB 1.1 0.5 - 2.2 mmol/L [facility] BGas Source Venous [facility] Specimen Anatomical Collection Method Collection Time Receive d Time (Source) Location / / Volume Laterality Blood specimen 07/07/2017 4:06 PM 017 4:06 (specimen) EST PM EST Daphne Shahid MD CHEMISTRY ORDERABLES Performing Organization Address City/State/[place] [address] (ABNORMAL) BLOOD GAS 2 ARTERIAL (07/07/2017 4:05 PM EST) Analysis Performed At Patho logist Time Signature pH Art 7.36 7.35 - [facility] 7.45 [facility] pCO2 Art 40 35 - 45 [facility]ORY pO2 Art 282 (H) 85 - 104 [facility]ORY HCO3 Art 22.1 20.0 - [facility] 26.0 [facility] mmol/L [facility] BE Art -3.4 (L) -3.0 - 3.0 [facility] mmol/L [facility] Hgb Blood Gas 10.2 (L) 13.7 - [facility] 16.5 gm/dL [facility] O2HB Art 98.4 (H) 94.0 - [facility] 97.0 % [facility] COHB Art 0.3 % [facility] Comment: Nonsmokers: 0.5-1.5% COHB Smokers: Variable, but usually less than 10% Toxic: 20-30% COHB Lethal: Greater than 60% COHB METHB Art 0.3 <=1.5 % [facility] Na Whole Blood 131 (L) [...] HOSPITAL LABORATORY Comment: Noted by supervisor instrument maintenance. Note: ??Total bilirubin higher than 20 m [...] Organization Address City/State/[place] [address] (ABNORMAL) BLOOD GAS 2 ARTERIAL (07/07/2017 2:29 PM EST) Analysis Performed At Patho logist Time Signature pH Art 7.43 7.35 - [facility] 7.45 [facility] pCO2 Art 36 35 - 45 [facility] pO2 Art 221 (H) 85 - 104 [facility] HCO3 Art 23.2 20.0 - [facility] 26.0 [facility] mmol/L [facility] BE Art -1.2 -3.0 - 3.0 [facility] mmol/L [facility] Hgb Blood Gas 13.9 13.7 - [facility] 16.5 gm/dL [facility] O2HB Art 97.8 (H) 94.0 - [facility] 97.0 % [facility] COHB Art 1.1 % [facility] Comment: Nonsmokers: 0.5-1.5% COHB Smokers: Variable, but usually less than 10% Toxic: 20-30% COHB Lethal: Greater than 60% COHB METHB Art 0.3 <=1.5 % [facility] Na Whole Blood 139 135 [...] CHEMISTRY ORDERABLES Performing Organization Address City/[facility] [place] [address] Prepare Coag Factors (Non-Hemophilia) (07/07/2017 1:25 PM EST) P athologist Signature Dispensed? Yes [facility] Specimen Anatomical Collection Method Collection Time Receive d Time (Source) Location / / Volume Laterality Blood specimen 07/07/2017 1:25 PM 017 1:21 (specimen) EST PM EST Daphne Shahid MD BLOOD BANK ORDERABLES Performing Organization Address City/[facility]/[place] [address] Prepare RBC (07/07/2017 1:10 PM EST) P athologist Signature Dispensed? Yes [facility] Specimen Anatomical Collection Method Collection Time Receive d Time (Source) Location / / Volume Laterality Blood specimen 07/07/2017 1:10 PM 017 1:05 (specimen) EST PM EST Daphne Shahid MD BLOOD BANK ORDERABLES Performing Organization Address City/[facility]/[place] [address] POCT Glucose (07/07/2017 11:56 [...] Address City/State/ZIP Code Phon e Number [address] POCT Glucose (07/07/2017 11:05 AM EST) athologist Signature POC Glucose 168 65 - 199 [facility] mg/dL [facility] Comment: [...] Organization Address City/State/[place] [address] POCT Glucose (07/07/2017 10:02 [...] Organization Address City/State/[place] [address] POCT Glucose (07/07/2017 7:53 AM EST) athologist Signature POC Glucose 178 65 - 199 [facility] mg/dL [facility] Comment: [...] Organization Address City/State/[place] [address] POCT Glucose (07/07/2017 7:03 AM EST) athologist Signature POC Glucose 188 65 - 199 [facility] mg/dL [facility] Comment: [...] Organization Address City/State/[place] [address] (ABNORMAL) POCT Glucose (07/07/2017 6:17 AM EST) athologist Signature POC Glucose 207 (H) 65 - 199 [facility] mg/dL [facility] Comment: [...] Organization Address City/State/[place] [address] Differential, Automated (07/07/2017 5:15 AM EST) P athologist Signature Neutrophils % 69.7 % [facility] Neutr Abs (ANC) 5.32 1.70 - [facility] 6.10 [facility] x10(3)/[facility] LABORATORY Lymphocytes % 16.3 % [facility] Lymphocytes Abs 1.2 0.9 - 3.2 [facility] x10(3)/[facility] LABORATORY Monocytes % 10.5 % [facility] Monocyte Abs 0.8 0.3 - 0.9 [facility] x10(3)/[facility] LABORATORY Eosinophils % 2.5 % [facility] Eosinophils Abs 0.2 0.0 - 0.4 [facility] x10(3)/[facility] LABORATORY Basophils % 0.7 % [facility] Basophils Abs 0.0 0.0 - 0.1 [facility] x10(3)/[facility] LABORATORY Immature [...] Melisa Gran Abs 0.02 0.00 - 0.04 x10(3)/[facility] Specimen Anatomical Collection Method Collection Time Receive d Time (Source) Location / / Volume Laterality Blood specimen 07/07/2017 5:15 AM 017 5:34 (specimen) EST AM EST Resulting Agency Comment Spec In Lab Daphne Shahid MD HEMATOLOGY ORDERABLES Performing Organization Address City/State/[place] [address] (ABNORMAL) Hemogram (07/07/2017 5:15 AM EST) Analysis Performed At Patho logist Time Signature WBC 7.6 4.0 - 9.5 [facility] x10(3)/[facility] LABORATORY RBC 4.82 4.58 - [facility] 5.54 [facility] x10(6)/[facility] LABORATORY Hemoglobin 14.4 13.7 - [facility] 16.5 gm/dL [facility] Hematocrit 42.1 40.5 - [facility] 48.5 % [facility] MCV 87.3 82.9 - [facility] 93.1 [facility] LABORATORY MCH 29.9 27.5 - [facility] 32.1 pg [facility] MCHC 34.2 32.0 - [facility] 35.7 gm/dL [facility] Platelets 188 145 - 357 [facility] x10(3)/[facility] LABORATORY RDWSD 45.1 (H) 36.0 - [facility] 45.0 [facility] LABORATORY RDWCV 14.3 (H) 11.4 - [facility] 13.8 % [facility] MPV 9.4 7.6 - 12.9 [facility] LABORATORY nRBC % Auto 0.0 % [facility] nRBC Abs Auto 0.000 0.000 - [facility] 0.000 [facility] x10(3)/[facility] LABORATORY Specimen Anatomical Collection Method Collection Time Receive d Time (Source) Location / / Volume Laterality Blood specimen 07/07/2017 5:15 AM 017 5:34 (specimen) EST AM EST Resulting Agency Comment Spec In Lab Daphne Shahid MD HEMATOLOGY ORDERABLES Performing Organization Address City/State/[place] [address] (ABNORMAL) APTT (07/07/2017 5:15 AM EST) P athologist Signature PTT 69 (H) 25 - 35 sec [facility] Comment: The recommended therapeutic range for fu ll dose, unfractionated heparin at [facility] is 80 ? 114 seconds. [...] Address City/State/ZIP Code Phon e Number [address] Magnesium (07/07/2017 5:15 AM EST) athologist Signature Magnesium 0.94 0.69 - 1.07 [facility] mmol/L [facility] Specimen Anatomical Collection Method Collection Time Receive d Time (Source) Location / / Volume Laterality Blood specimen 07/07/2017 5:15 AM 017 5:34 (specimen) EST AM EST Resulting Agency Comment Spec In Lab Daphne Shahid MD CHEMISTRY ORDERABLES Performing Organization Address City/[facility] Code Phon e Number [address] (ABNORMAL) Basic Metabolic Panel (non-fasting) (07/07/2017 5:15 AM EST) athologist Signature Glucose Lvl 203 (H) 65 - 199 [facility] mg/dL [facility] [...] or in patients with acute kidney failure. [email or web address] Specimen Anatomical Collection Method Collection Time Receive d Time (Source) Location / / Volume Laterality Blood specimen 07/07/2017 5:15 AM 017 5:34 (specimen) EST AM EST Resulting Agency Comment Spec In Lab Daphne Shahid MD CHEMISTRY ORDERABLES Performing Organization Address City/State/[place] [address] (ABNORMAL) Cardiac Enzymes (LEB/CGP) (07/07/2017 5:15 AM EST) P athologist Signature Troponin-T 2.07 (H) 0.00 [facility] 0.[facility] ng/mL [facility] Comment: [...] additional sample may be indicated. Reference: Third [place] Definition of Myocardial Infarction. Journal of the [...] Address City/State/ZIP Code Phon e Number [address] POCT Glucose (07/07/2017 5:01 AM EST) athologist Signature POC Glucose 182 65 - 199 [facility] mg/dL [facility] Comment: Supplemental [...] Address City/State/ZIP Code Phon e Number [address] POCT Glucose (07/07/2017 4:08 AM EST) athologist Signature POC Glucose 199 65 - 199 [facility] mg/dL [facility] Comment: Supplemental [...] Address City/State/ZIP Code Phon e Number [address] POCT Glucose (07/07/2017 3:03 AM EST) athologist Signature POC Glucose 188 65 - 199 [facility] mg/dL [facility] Comment: Supplemental [...] City/[facility]/[place] [address] (ABNORMAL) POCT Glucose (07/07/2017 2:08 AM EST) athologist Signature POC Glucose 200 (H) 65 - 199 [facility] mg/dL [facility] Comment: Supplemental [...] City/[facility]/[place] [address] (ABNORMAL) POCT Glucose (07/07/2017 1:31 AM EST) athologist Signature POC Glucose 209 (H) 65 - 199 [facility] mg/dL [facility] Comment: Supplemental [...] City/[facility]/[place] [address] XR Chest PA or [...] appreciable change in appearance of the chest. Dpahne Shahid MD IMG DX ORDERABLES POCT Glucose (07/07/2017 12:07 AM EST) athologist Signature POC Glucose 161 65 - 199 [facility] mg/dL [facility] [...] Organization Address City/State/[place] [address] (ABNORMAL) APTT (07/07/2017 12:00 AM EST) athologist Signature PTT 103 (H) 25 - 35 sec [facility] Comment: The recommended therapeutic range for fu ll dose, unfractionated heparin at [facility] is 80 ? 114 seconds. [...] Address City/State/ZIP Code Phon e Number 36 [address] POCT Glucose (07/06/2017 9:55 [...] City/[facility]/ZIP Code Phon e Number [address] POCT Glucose (07/06/2017 9:04 PM EST) athologist Signature POC Glucose 120 65 - 199 [place] mg/dL [place] [...] City/[facility]/ZIP Code Phon e Number [address] POCT Glucose (07/06/2017 7:45 [...] City/[facility]/[place] [address] Potassium (07/06/2017 7:40 PM EST) athologist Signature Potassium 3.9 3.5 - 5.0 [facility] mmol/L [facility] LABORATORY [...] City/[facility]/[place] [address] (ABNORMAL) Cardiac Enzymes (LEB/CGP) (07/06/2017 7:40 PM EST) athologist Signature Troponin-T 2.27 (H) 0.00 - [place] 0.00 ng/mL [facility] Comment: [...] additional sample may be indicated. Reference: Third [place] Definition of Myocardial Infarction. Journal of the [...] City/[facility]/[place] [address] (ABNORMAL) POCT Glucose (07/06/2017 7:13 PM EST) P athologist Signature POC Glucose 200 (H) 65 - 199 [facility] mg/dL [facility] LABORATORY [...] City/[facility]/[place] [address] (ABNORMAL) APTT (07/06/2017 6:15 PM EST) P athologist Signature PTT 94 (H) 25 - 35 sec [facility] LABORATORY Comment: The recommended therapeutic range for fu ll dose, unfractionated heparin at [facility] is 80 ? 114 seconds. [...] City/[facility]/[place] [address] (ABNORMAL) POCT Glucose (07/06/2017 [...] City/[facility]/[place] [address] (ABNORMAL) POCT Glucose (07/06/2017 [...] City/[facility]/[place] [address] (ABNORMAL) POCT Glucose (07/06/2017 [...] Address City/State/ZIP Code Phon e Number [address] POCT Glucose (07/06/2017 2:59 PM EST) athologist Signature POC Glucose 178 65 - 199 [facility] mg[facility]dL [facility] Comment: Supplemental [...] City/[facility]/[place] [address] (ABNORMAL) Cardiac Enzymes (LEB/CGP) [...] additional sample may be indicated. Reference: Third [place] Definition of Myocardial Infarction. Journal of the [place] [employer] 2012;60:1581-98 CK, Total 101 0 - 200 unit/L [facility] LABORATORY Specimen Anatomical Collection Method Collection Time Receive d Time (Source) Location / / Volume Laterality Blood specimen 07/06/2017 2:10 PM 017 2:26 (specimen) EST PM EST Resulting Agency Comment Spec In Lab Daphne Shahid MD CHEMISTRY ORDERABLES Performing Organization Address [facility] [place] Phon e Number [address] POCT Glucose (07/06/2017 2:08 PM EST) P athologist Signature POC Glucose 192 65 - 199 [facility] mg/dL [facility] LABORATORY [...] City/[facility]/[place] [address] POCT Glucose (07/06/2017 1:04 PM EST) P athologist Signature POC Glucose 162 65 - 199 [facility] mg/dL [facility] Comment: Supplemental [...] City/[facility]/[place] [address] [facility] [address] POCT Glucose (07/06/2017 12:05 PM EST) P athologist Signature POC Glucose 196 65 - 199 [facility] mg/dL [facility] LABORATORY [...] City/[facility]/ZIP Code Phon e Number [address] EKG 12 Lead (07/06/2017 12:00 PM EST) Component Value Ref Range Test Analysis Performed Pathologis t Method Time At Signature Ventricular rate 91 BPM MUSE SYSTEM Atrial Rate 91 BPM MUSE SYSTEM P-R Interval 140 ms MUSE SYSTEM QRS Duration 94 ms MUSE SYSTEM Q-T Interval 394 ms MUSE SYSTEM QTC Calculated 484 ms MUSE SYSTEM (Bezet) Calculated P Rohwer 36 degrees MUSE SYSTEM Calculated R Rohwer -19 degrees MUSE SYSTEM Calculated T Rohwer 104 degrees MUSE SYSTEM INTERPRETATION Normal sinus rhythm MUSE SYSTEM 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) ST & T wave abnormality, consider lateral ischemia Abnormal ECG When compared with ECG of 05-JUL-2017 20:39, No significant change was found Confirmed by MD Luci, Taurus Braun ([id number]) on 07/06/2017 5:07:33 PM Specimen Anatomical Collection [...] BLOOD BANK ORDERABLES Performing Organization Address City/[facility]/[place] [address] Antibody screen (07/06/2017 12:00 PM EST) Patholo gist Method Time Signature Ab Screen Negative [facility] LABORATORY Expires at 07/09/2017 [facility] [id number] on: [facility] Specimen Anatomical Collection Method Collection Time Receive d Time (Source) Location / / Volume Laterality Blood specimen 07/06/2017 12:00 7 (specimen) PM EST 12:24 PM EST Resulting Agency Comment Spec In Lab Daphne Shahid MD BLOOD BANK ORDERABLES Performing Organization Address City/[facility]/[place] [address] ABO/Rh Typing (07/06/2017 12:00 PM EST) P athologist Signature ABORh Type O Pos [facility] LABORATORY Specimen Anatomical Collection Method Collection Time Receive d Time (Source) Location / / Volume Laterality Blood specimen 07/06/2017 12:00 7 (specimen) PM EST 12:24 PM EST Resulting Agency Comment Spec In Lab Daphne Shahid MD BLOOD BANK ORDERABLES Performing Organization Address City/[facility]/[place] [address] Prothrombin Time (07/06/2017 11:24 [...] City/[facility]/ZIP Code Phon e Number [address] (ABNORMAL) APTT (07/06/2017 11:24 AM EST) P athologist Signature PTT 52 (H) 25 - 35 sec [facility] Comment: The recommended therapeutic range for fu ll dose, unfractionated heparin at [facility] is 80 ? 114 seconds. [...] City/[facility]/[place] [address] POCT Glucose (07/06/2017 11:02 AM EST) P athologist Signature POC Glucose 187 65 - 199 [facility] mg/dL [facility] LABORATORY [...] City/[facility]/[place] [address] POCT Glucose (07/06/2017 10:18 AM EST) P athologist Signature POC Glucose 193 65 - 199 [place] mg/dL [place] [...] Organization Address City/State/[place] [address] POCT Glucose (07/06/2017 9:25 AM EST) athologist Signature POC Glucose 182 65 - 199 [facility]/dL [facility] Comment: Supplemental ranges: <140 mg/dL before meals <180 mg/dL all other times of the day Specimen Anatomical Collection Method Collection Time Receive d Time (Source) Location / / Volume Laterality Blood specimen 07/06/2017 9:25 AM 017 9:25 (specimen) EST AM EST Daphne Shahid MD POINT OF CARE TEST ORDERABLE S Performing Organization Address City/State/[place] [address] (ABNORMAL) Cardiac Enzymes (LEB/CGP) (07/06/2017 8:10 AM EST) athologist [employer] Troponin-T 2.26 (H) 0.00 - [place] 0.00 ng/mL [facility] Comment: [...] additional sample may be indicated. Reference: Third [place] Definition of Myocardial Infarction. Journal of the [...] City/[facility]/ZIP Code Phon e Number [address] Magnesium (07/06/2017 8:10 AM EST) P athologist Signature Magnesium 0.84 0.69 - 1.07 [facility] mmol/L [facility] Specimen Anatomical Collection Method Collection Time Receive d Time (Source) Location / / Volume Laterality Blood specimen 07/06/2017 8:10 AM 017 8:21 (specimen) EST AM EST Resulting Agency Comment Spec In Lab Daphne Shahid MD CHEMISTRY ORDERABLES Performing Organization Address City/[facility] [place] [address] (ABNORMAL) Basic Metabolic Panel (non-fasting) (07/06/2017 8:10 AM EST) P athologist Signature Glucose Lvl 199 65 - 199 [facility] mg/dL [facility] LAB[facility]ORY [...] or in patients with acute kidney failure. [email or web address]/DHnkdep [email or web address] Specimen Anatomical Collection Method Collection Time Receive d Time (Source) Location / / Volume Laterality Blood specimen 07/06/2017 8:10 AM 017 8:21 (specimen) EST AM EST Resulting Agency Comment Spec In Lab Daphne Shahid MD CHEMISTRY ORDERABLES Performing Organization Address City/[facility]/[place] [address] POCT Glucose (07/06/2017 7:34 AM EST) P athologist Signature POC Glucose 198 65 - 199 [facility] mg/dL [facility] LABORATORY [...] City/[facility]/[place] [address] POCT Glucose (07/06/2017 7:03 AM EST) P athologist Signature POC Glucose 181 65 - 199 [place] mg/dL [place] [...] Address City/State/ZIP Code Phon e Number [address] XR Chest PA or [...] [facility] mg/dL [facility] Comment: Supplemental ranges: <140 mg/dL before meals <180 mg/dL all other times of the day Specimen Anatomical Collection Method Collection Time Receive d Time (Source) Location / / Volume Laterality Blood specimen 07/06/2017 6:21 AM 017 6:21 (specimen) EST AM EST Daphne Shahid MD POINT OF CARE TEST ORDERABLE S Performing Organization Address City/State/[place] [address] POCT Glucose (07/06/2017 5:08 AM EST) athologist Signature POC Glucose 154 65 - 199 [facility] mg/dL [facility] Comment: Supplemental ranges: <140 mg/dL before meals <180 mg/dL all other times of the day Specimen Anatomical Collection Method Collection Time Receive d Time (Source) Location / / Volume Laterality Blood specimen 07/06/2017 5:08 AM 017 5:08 (specimen) EST AM EST Daphne Shahid MD POINT OF CARE TEST ORDERABLE S Performing Organization Address City/State/[place] [address] POCT Glucose (07/06/2017 4:05 AM EST) athologist Signature POC Glucose 142 65 - 199 [facility] mg/dL [facility] Comment: Supplemental [...] City/[facility]/ZIP Code Phon e Number [address] POCT Glucose (07/06/2017 3:00 AM EST) athologist [facility] POC Glucose 116 65 - 199 [facility] mg/dL [facility] LABORATORY [...] City/[facility]/ZIP Code Phon e Number [address] Potassium (07/06/2017 2:20 AM EST) athologist [facility] Potassium 3.9 3.5 - 5.0 [facility] mmol/L [facility] LABORATORY [...] City/[facility]/ZIP Code Phon e Number [address] Differential, Automated (07/06/2017 2:20 AM EST) athologist [facility] Neutrophils % 72.9 % [facility] LABORATORY Neutr Abs (ANC) 5.53 1.70 - [facility] 6.10 [facility] x10(3)/[facility] LABORATORY Lymphocytes % 16.4 % [facility] LABORATORY Lymphocytes Abs 1.2 0.9 - 3.2 [facility] x10(3)/[facility] LABORATORY Monocytes % 9.4 % [facility] LABORATORY Monocyte Abs 0.7 0.3 - 0.9 [facility] x10(3)/[facility] LABORATORY Eosinophils % 0.5 % [facility] LABORATORY Eosinophils Abs 0.0 0.0 - 0.4 [facility] x10(3)/[facility] LABORATORY Basophils % 0.4 % [facility] LABORATORY Basophils Abs 0.0 0.0 - 0.1 [facility] x10(3)/[facility] LABORATORY Immature [...] 0.00 - 0.04 x10(3)/[facility] LABORATORY Specimen Anatomical Collection Method Collection Time Receive d Time (Source) Location / / Volume Laterality Blood specimen 07/06/2017 2:20 AM 017 2:33 (specimen) EST AM EST Resulting Agency Comment Spec In Lab Daphne Shahid MD HEMATOLOGY ORDERABLES Performing Organization Address City/State/[place] [address] (ABNORMAL) Hemogram (07/06/2017 2:20 AM EST) Analysis Performed At Patho logist Time Signature WBC 7.6 4.0 - 9.5 [facility] x10(3)/[facility] LABORATORY RBC 4.52 (L) 4.58 - [facility] 5.54 [facility] x10(6)/[facility] LABORATORY Hemoglobin 13.4 (L) 13.7 - [place] 16.5 gm/dL [facility] Hematocrit 39.7 (L) 40.5 - [place] 48.5 % [facility] MCV 87.8 82.9 - [facility] RYAN 93.1 [facility] LABORATORY MCH 29.6 27.5 - [place] 32.1 pg [facility] MCHC 33.8 32.0 - [place] 35.7 gm/dL [facility] Platelets 189 145 - 357 [facility] x10(3)/[facility] LABORATORY RDWSD 45.6 (H) 36.0 - [facility] 45.0 [facility] LABORATORY RDWCV 14.3 (H) 11.4 - [facility] RYAN 13.8 % [facility] LABORATORY MPV 9.1 7.6 - 12.9 [facility] LABORATORY nRBC % Auto 0.0 % [facility] LABORATORY nRBC Abs Auto 0.000 0.000 - [facility] RYAN 0.000 [facility] x10(3)/[facility] LABORATORY Specimen Anatomical Collection Method Collection Time Receive d Time (Source) Location / / Volume Laterality Blood specimen 07/06/2017 2:20 AM 017 2:33 (specimen) EST AM EST Resulting Agency Comment Spec In Lab Daphne Shahid MD HEMATOLOGY ORDERABLES Performing Organization Address City/State/[place] [address] (ABNORMAL) APTT (07/06/2017 2:20 AM EST) P athologist Signature PTT 52 (H) 25 - 35 sec [facility] LABORATORY Comment: The recommended therapeutic range for fu ll dose, unfractionated heparin at [facility] is 80 ? 114 seconds. [...] Address City/State/ZIP Code Phon e Number [address] POCT Glucose (07/06/2017 2:20 AM EST) athologist Signature POC Glucose 115 65 - 199 [facility] mg/dL [facility] Comment: Supplemental ranges: <140 mg/dL before meals <180 mg/dL all other times of the day Specimen Anatomical Collection Method Collection Time Receive d Time (Source) Location / / Volume Laterality Blood specimen 07/06/2017 2:20 AM 017 2:20 (specimen) EST AM EST Daphne Shahid MD POINT OF CARE TEST ORDERABLE S Performing Organization Address City/State/[place] [address] (ABNORMAL) Cardiac Enzymes (LEB/CGP) (07/06/2017 2:20 AM EST) athologist Signature Troponin-T 2.13 (H) 0.00 - [place] 0.00 ng/mL [facility] Comment: [...] additional sample may be indicated. Reference: Third [place] Definition of Myocardial Infarction. Journal of the [...] Organization Address City/State/[place] [address] (ABNORMAL) Hemoglobin A1c (07/06/2017 [...] with hemoglobinopathies. Additional resources are available on [facility] website. Macario HAMMOND, Ruthann J, Deysi R, et al. ??Tr anslating the A1C assay into estimated average glucose values. ??Diabetes Care 2008:31(8):3980-8636. Specimen Anatomical Collection Method Collection Time Receive d Time (Source) Location / / Volume Laterality Blood specimen 07/06/2017 2:20 AM 017 2:34 (specimen) EST AM EST Resulting Agency Comment Spec In Lab Daphne Shahid MD CHEMISTRY ORDERABLES Performing Organization Address City/State/[place] [address] (ABNORMAL) Lipid Panel (07/06/2017 2:20 AM EST) [facility] Method Time Signature Chol, Total 150 <=239 [place] mg/dL [facility] LABORATORY Triglycerides 129 <=199 [facility] mg/dL [facility] LABORATORY HDL 32 (L) >=40 [facility] mg/dL [facility] LABORATORY LDL Cholesterol [...] greater than or equal to 190 mg/dL. http://tinyurl.com/EPJ-IZF-Qnmujglfv Adults aged 40-75 with LDL 70-189 mg/dL should have their 10 year ASCVD risk estimated with the ACC/AHA ASCVD risk es timator http://tools.acc.org/LFNTB-Bhsc-Zotjtjes r/ Statin should be discussed if risk [...] City/[facility]/ZIP Code Phon e Number [address] POCT Glucose (07/06/2017 1:09 AM EST) athologist Signature POC Glucose 121 65 - 199 [facility] mg/dL [facility] Comment: Supplemental [...] City/[facility]/[place] [address] POCT Glucose (07/06/2017 12:06 AM EST) athologist Signature POC Glucose 147 65 - 199 [facility] R[facility] mg/dL [facility] Comment: [...] Organization Address City/State/[place] [address] (ABNORMAL) POCT Glucose (07/05/2017 10:56 PM EST) athologist Signature POC Glucose 200 (H) 65 - 199 [facility] mg/dL [facility] Comment: Supplemental ranges: <140 mg/dL before meals <180 mg/dL all other times of the day Specimen Anatomical Collection Method Collection Time Receive d Time (Source) Location / / Volume Laterality Blood specimen 07/05/2017 10:56 7 (specimen) PM EST 10:56 PM EST Daphne Shahid MD POINT OF CARE TEST ORDERABLE S Performing Organization Address City/State/[place] [address] (ABNORMAL) POCT Glucose (07/05/2017 10:05 PM EST) athologist Signature POC Glucose 225 (H) 65 - 199 [facility] mg/dL [facility] Comment: Supplemental ranges: <140 mg/dL before meals <180 mg/dL all other times of the day Specimen Anatomical Collection Method Collection Time Receive d Time (Source) Location / / Volume Laterality Blood specimen 07/05/2017 10:05 7 (specimen) PM EST 10:05 PM EST Daphne Shahid MD POINT OF CARE TEST ORDERABLE S Performing Organization Address City/State/[place] [address] (ABNORMAL) POCT Glucose (07/05/2017 9:02 PM EST) athologist Signature POC Glucose 301 (H) 65 - 199 [facility] mg/dL [facility] Comment: Supplemental ranges: <140 mg/dL before meals <180 mg/dL all other times of the day Specimen Anatomical Collection Method Collection Time Receive d Time (Source) Location / / Volume Laterality Blood specimen 07/05/2017 9:02 PM 017 9:02 (specimen) EST PM EST Daphne Shahid MD POINT OF CARE TEST ORDERABLE S Performing Organization Address City/State/[place] [address] XR Chest PA or [...] 474 ms MUSE SYSTEM (Bezet) Calculated P Rohwer 50 degrees MUSE SYSTEM Calculated R Rohwer -28 degrees MUSE SYSTEM Calculated T Rohwer 90 degrees MUSE SYSTEM INTERPRETATION Sinus tachycardia [...] (ABNORMAL) Differential, Automated (07/05/2017 8:20 PM EST) [facility] gist Method Time Signature Neutrophils % 88.4 % [facility] LABORATORY Neutr Abs (ANC) 9.08 (H) 1.70 - [facility] 6.10 [facility] x10(3)/[facility] LABORATORY Lymphocytes % 7.0 % [facility] LABORATORY Lymphocytes Abs 0.7 (L) 0.9 - 3.2 [facility] x10(3)/[facility] LABORATORY Monocytes % 3.7 % [facility] LABORATORY Monocyte Abs 0.4 0.3 - 0.9 [facility] x10(3)/[facility] LABORATORY Eosinophils % 0.1 % [facility] LABORATORY Eosinophils Abs 0.0 0.0 - 0.4 [facility] x10(3)/[facility] LABORATORY Basophils % 0.2 % [facility] LABORATORY Basophils Abs 0.0 0.0 - 0.1 [facility] x10(3)/[facility] LABORATORY Immature [...] Abs 0.06 (H) 0.00 - 0.04 x10(3)/[facility] LABORATORY Specimen Anatomical Collection Method Collection Time Receive d Time (Source) Location / / Volume Laterality Blood specimen 07/05/2017 8:20 PM 017 8:27 (specimen) EST PM EST Resulting Agency Comment Spec In Lab Daphne Shahid MD HEMATOLOGY ORDERABLES Performing Organization Address City/State/[place] [address] (ABNORMAL) Hemogram (07/05/2017 8:20 PM EST) Analysis Performed At Patho logist Time Signature WBC 10.3 (H) 4.0 - 9.5 [facility] x10(3)/[facility] LABORATORY RBC 4.64 4.58 - [place]AN 5.54 [facility] x10(6)/[facility] LABORATORY Hemoglobin 14.1 13.7 - [place] R[place] 16.5 gm/dL [facility] LABOR[facility]ORY Hematocrit 40.8 40.5 - [facility] RYAN 48.5 % [facility] LABORATORY MCV 87.9 82.9 - [facility] RYAN 93.1 [facility] LABORATORY MCH 30.4 27.5 - [place] 32.1 pg [facility] LABORATORY MCHC 34.6 32.0 - [facility] RYAN 35.7 gm/dL [facility] LAB[facility] Platelets 204 145 - 357 [facility] x10(3)/[facility] LABORATORY RDWSD 46.1 (H) 36.0 - [facility] RYAN 45.0 [facility] LABORATORY RDWCV 14.5 (H) 11.4 - [facility] RYAN 13.8 % [facility] LABORATORY MPV 9.7 7.6 - 12.9 [facility] nRBC % Auto 0.0 % [facility] LABORATORY nRBC Abs Auto 0.000 0.000 - [facility] RYAN 0.000 [facility] x10(3)/[facility] LABORATORY Specimen Anatomical Collection Method Collection Time Receive d Time (Source) Location / / Volume Laterality Blood specimen 07/05/2017 8:20 PM 017 8:27 (specimen) EST PM EST Resulting Agency Comment Spec In Lab Daphne Shahid MD HEMATOLOGY ORDERABLES Performing Organization Address City/State/ZIP Code Phon e Number [place] [address] APTT (07/05/2017 8:20 PM EST) athologist Signature PTT 32 25 - 35 sec [facility] LABORATORY Comment: The recommended therapeutic range for fu ll dose, unfractionated heparin at [facility] is 80 ? 114 seconds. [...] Organization Address City/State/[place] [address] (ABNORMAL) Cardiac Enzymes (LEB/CGP) (07/05/2017 8:20 PM EST) athologist [facility] Troponin-T 2.11 (H) 0.00 - [facility] 0.00 ng/mL [facility] [...] additional sample may be indicated. Reference: Third [place] Definition of Myocardial Infarction. Journal of the [...] ORDERABLES Performing Organization Address City/[facility]/ZIP [facility] [place] [address] (ABNORMAL) Magnesium (07/05/2017 8:20 PM EST) P athologist Signature Magnesium 0.68 (L) 0.69 - 1.07 [facility] mmol/L [facility] LABORATORY Specimen Anatomical Collection Method Collection Time Receive d Time (Source) Location / / Volume Laterality Blood specimen 07/05/2017 8:20 PM 017 8:27 (specimen) EST PM EST Resulting Agency Comment Spec In Lab Daphne Shahid MD CHEMISTRY ORDERABLES Performing Organization Address City/[facility]/[place] [address] (ABNORMAL) Basic Metabolic Panel (non-fasting) (07/05/2017 8:20 PM EST) P athologist Signature Glucose Lvl 321 (H) 65 - 199 [facility] mg/dL [facility] LABORATORY [...] or in patients with acute kidney failure. [email or web address] [email or web address] Specimen Anatomical Collection Method Collection Time Receive d Time (Source) Location / / Volume Laterality Blood specimen 07/05/2017 8:20 PM 017 8:27 (specimen) EST PM EST Resulting Agency Comment Spec In Lab Daphne Shahid MD CHEMISTRY ORDERABLES Performing Organization Address City/State/[place] [address] (ABNORMAL) POCT Glucose (07/05/2017 7:32 PM EST) P athologist Signature POC Glucose 296 (H) 65 - 199 [facility] mg/dL [facility] LABOR[facility]ORY [...] Organization Address City/State/[place] [address] CARDIAC CATHETERIZATION (07/05/2017 6:47 PM EST) Anatomical Region Laterality Modality Other Specimen (Source) Anatomical Location Collection Method / Collectio n Time Received Time / Laterality Volume Narrative 07/05/2017 7:27 PM EST ?[facility] ? Cardiac Cathete rization/Intervention Report ? Patient Name: Gregory Hoang ? Procedure Date: 07/05/2017 ? A #: [id number] ? Primary Physician: Clarisa, Jet T ? Case #: [id number] ? File Name: [id number] ? Catheterization Order Number: [id number] ? [facility] ? Final Report [place], [place] ? Patient Name: ? Gregory Natalya ?ID#: ?[id number] ? : ?1945 ? Procedure Date: ? [...] presented with: non -STEMI (w/i 7 days). [place] ?Cardiovascular Society angina c lass was IV. [...] might be different from the original. [facility] Cardiac Catheterization/Intervention Re port Patient Name: Gregory Hoang Procedure Date: 07/05/2017 A #: [id number] Primary Physician: Jet Mckenna Case #: [id number] File Name: [id number] Catheterization Order Number: [id number] [facility] [employer] Technician [facility] Final Report [place], [place] Patient Name: Gregory Hoang ID#: [id number] 3-9 : 1945 Procedure Date: July 05, [...] presented with: non-STEMI ( w/i 7 days). [place] Cardiovascular Society angina class was IV. No [...] Mccollum ? (Age): 1945(72y) Med Rec#: ? [id number] ?Sex: ?M ? [place] [facility] [place]t / Wt: ??173(cm)/86(kg) Pt. Loc: ?CCU ? BSA: ?2 Study Date: ?? 07/05/2017 ?Pt. Type: Inpatient Tape: ? Referring: Daphne Shahid ([id number]) Referring: MANDA ALCANTAR Reading: Blade Preston ([id number]) [employer] Rep[employer]r: Dayami Paula BA, [facility] Diagnosis: *ICD-10-PCS Non-ST elevation (NSTEMI) [...] E-wave Vmax ?0.8 ?m/sec ? MV deceleration fern004 ?msec ? MV A-wave Vmax ?0.8 ?m/sec [...] ? Mid-Inferior ?Akinetic ? Mid-Inferoseptal ?Hypokinetic ? [place]-Septal ? Akinetic ? [place]-Anterior ? Hypokinetic ? [place]-Lateral ?Hypokinetic ? [place]-Inferior ? Akinetic ? [place]-Tip ?Akinetic ? This report has been electronically sign ed by: _ Blade Preston MD ? 07/06/2017 08 :53:15 Images reviewed and interpretation [facility] Cardiac Ultrasound Laboratory Procedure Note Blade Preston MD - 07/06/2017Formatt ing of this note might be different from the original. Procedure: Transthoracic Echocardiogram Patient: NATALYA MCBRIDE(Age): [birth year]72y) Med Rec#: [id number] Sex: M [place] [facility] Ht / Wt: 173(cm)/86(kg) Pt. Loc: CCU BSA: 2 Study Date: 07/05/2017 Pt. Type: Inpatie nt Tape: Referring: Daphne Shahid ([id number]) Referring: MANDA ALCANTAR Reading: Blade Preston ([id number]) [employer] Rep[employer]r: Dayami Paula BA, [facility] Diagnosis: *ICD-10-PCS Non-ST elevation (NSTEMI) [...] MV E-wave Vmax 0.8 m/sec MV deceleration asad247 msec MV A-wave Vmax 0.8 m/sec MV [...] Hypokinetic Mid-Posterolateral Hypokinetic Mid-Inferior Akinetic Mid-Inferoseptal Hypokinetic [place]-Septal Akinetic [place]-Anterior Hypokinetic [place]-Lateral Hypokinetic [place]-Inferior Akinetic [place]-Tip Akinetic This report has been electronically sign ed by: _ Blade Preston MD 07/06/2017 08:53:15 Images reviewed and interpretation ver ied [facility] Cardiac Ultrasound Laboratory Daphne Shahid MD ECHO ORDERABLES Differential, Automated (07/05/2017 4:55 PM EST) athologist Signature Neutrophils % 77.0 % [facility] LABORATORY Neutr Abs (ANC) 5.26 1.70 - [facility] 6.10 [facility] x10(3)/[facility] LABORATORY Lymphocytes % 13.3 % [facility] LABORATORY Lymphocytes Abs 0.9 0.9 - 3.2 [facility] x10(3)/[facility] LABORATORY Monocytes % 8.2 % [facility] LABORATORY Monocyte Abs 0.6 0.3 - 0.9 [facility] x10(3)/[facility] LABORATORY Eosinophils % 0.7 % [facility] LABORATORY Eosinophils Abs 0.0 0.0 - 0.4 [facility] x10(3)/[facility] LABORATORY Basophils % 0.4 % [facility] LABORATORY Basophils Abs 0.0 0.0 - 0.1 [facility] x10(3)/[facility] LABORATORY Immature [...] 0.00 - 0.04 x10(3)/[facility] LABORATORY Specimen Anatomical Collection Method Collection Time Receive d Time (Source) Location / / Volume Laterality Blood specimen 07/05/2017 4:55 PM 017 5:24 (specimen) EST PM EST Resulting Agency Comment Spec In Lab Daphne Shahid MD HEMATOLOGY ORDERABLES Performing Organization Address City/State/[place] [address] (ABNORMAL) Hemogram (07/05/2017 4:55 PM EST) Analysis Performed At Patho logist Time Signature WBC 6.8 4.0 - 9.5 [facility] x10(3)/[facility] LABORATORY RBC 4.67 4.58 - [facility] 5.54 [facility] x10(6)/[facility] LABORATORY Hemoglobin 14.0 13.7 - [facility] 16.5 gm/dL [facility] LABORATORY Hematocrit 41.0 40.5 - [facility] 48.5 % [facility] LABORATORY MCV 87.8 82.9 - [facility] 93.1 [facility] LABORATORY MCH 30.0 27.5 - [facility] 32.1 pg [facility] LABORATORY MCHC 34.1 32.0 - [facility] 35.7 gm/dL [facility] LABORATORY Platelets 197 145 - 357 [facility] x10(3)/[facility] LABORATORY RDWSD 46.4 (H) 36.0 - [facility] 45.0 [facility] LABORATORY RDWCV 14.5 (H) 11.4 - [place] 13.8 % [facility] LABORATORY MPV 9.7 7.6 - 12.9 [facility] LABORATORY nRBC % Auto 0.0 % [facility] LABORATORY nRBC Abs Auto 0.000 0.000 - [place] [facility] 0.000 [facility] x10(3)/[facility] LABORATORY Specimen Anatomical Collection Method Collection Time Receive d Time (Source) Location / / Volume Laterality Blood specimen 07/05/2017 4:55 PM 017 5:24 (specimen) EST PM EST Resulting Agency Comment Spec In Lab Daphne Shahid MD HEMATOLOGY ORDERABLES Performing Organization Address City/State/[place] [address] (ABNORMAL) Cardiac Enzymes (LEB/CGP) [...] additional sample may be indicated. Reference: Third [place] Definition of Myocardial Infarction. Journal of the [...] City/[facility]/[place] [address] (ABNORMAL) pro-Brain Natriuretic Peptide (07/05/2017 4:55 PM EST) P athologist Signature ProBNP 1,598 (H) <=125 [facility] pg/mL [facility] LAB[facility]ATORY Specimen Anatomical Collection Method Collection Time Receive d Time (Source) Location / / Volume Laterality Blood specimen 07/05/2017 4:55 PM 017 5:24 (specimen) EST PM EST Resulting Agency Comment Spec In Lab Daphne Shahid MD CHEMISTRY ORDERABLES Performing Organization Address City/State/[place] [address] Magnesium (07/05/2017 4:55 PM EST) P athologist Signature Magnesium 0.78 0.69 - 1.07 [facility] mmol/L [facility] LABOR[facility]ORY Specimen Anatomical Collection Method Collection Time Receive d Time (Source) Location / / Volume Laterality Blood specimen 07/05/2017 4:55 PM 017 5:24 (specimen) EST PM EST Resulting Agency Comment Spec In Lab Daphne Shahid MD CHEMISTRY ORDERABLES Performing Organization Address City/State/[place] [address] (ABNORMAL) Basic Metabolic Panel (non-fasting) (07/05/2017 4:55 PM EST) P athologist Signature Glucose Lvl 230 (H) 65 - 199 [facility] mg/dL [facility] LABORATORY [...] or in patients with acute kidney failure. [email or web address] (d.[email or web address]. Blue [email or web address])/[email or web address] [email or web address] (d.[email or web address].a. Blue [email or web address])/[email or web address] Specimen Anatomical Collection Method Collection Time Receive d Time (Source) Location / / Volume Laterality Blood specimen 07/05/2017 4:55 PM 017 5:24 (specimen) EST PM EST Resulting Agency Comment Spec In Lab Daphne Shahid MD CHEMISTRY ORDERABLES Performing Organization Address City/[facility]/[place] [address] (ABNORMAL) APTT (07/05/2017 4:55 PM EST) P athologist Signature PTT 41 (H) 25 - 35 sec [facility] LABORATORY Comment: The recommended therapeutic range for fu ll dose, unfractionated heparin at [facility] is 80 ? 114 seconds. [...] City/[facility]/[place] [address] (ABNORMAL) POCT Glucose (07/05/2017 4:53 PM EST) athologist Signature POC Glucose 208 (H) 65 - 199 [facility] mg/dL [facility] LABORATORY [...] City/[facility]/[place] [address] EKG 12 Lead (07/05/2017 4:32 PM EST) Component Value Ref Range Test Analysis Performed Pathologis t Method Time At Signature Ventricular rate 97 BPM MUSE SYSTEM Atrial Rate 97 BPM MUSE SYSTEM P-R Interval 148 ms MUSE SYSTEM QRS Duration 96 ms MUSE SYSTEM Q-T Interval 364 ms MUSE SYSTEM QTC Calculated 462 ms MUSE SYSTEM (Bezet) Calculated P Rohwer 48 degrees MUSE SYSTEM Calculated R Rohwer -33 degrees MUSE SYSTEM Calculated T Rohwer 98 degrees MUSE SYSTEM INTERPRETATION Normal sinus [...] Coronary atherosclerosis of unspecified type of vessel, [place] or graft Cardiomyopathy, ischemic Other specified forms [...] dose on Wed07/07/17 at 2100, Until Discontinued, [place] teeth, Routine Given 07/08/2017 10:06 PM EST [...] or norepinephrine is ineffective. Call pager # [phone] if initiated. Rate/Dose Change 07/08/2017 7:01 PM [...] if phenyleprine and/or vasopressin ineffective.Call pager # [phone] if initiated., Routine Rate/Dose Change 07/09/2017 1:24 [...] L/min/M2. Maximum volume 2 L. Call powerhouse oiler for additional fluid orders: pager #[phone]. Rate/Dose Verify 07/08/2017 4:00 AM EST 100 [...] Provider: Yanet Valdovinos, VAMSI)1826 (Stopped - Provider: Mroe Luther RN) 0125 (New Bag - Provider: Ale Rangel RN)0155 (Stopped - Provider: Ale Rangel RN)0901 (New Bag - Provider: Em Jones RN)0931 (Stopped - Provider: Em Jnoes, VAMSI)1738 (New Bag - Provider: Em Jones [...] Denice Jacobson, RN) 0921 (Given - Provider: yMrna triplett RN) 25 mg, Oral, EVERY 12 [...] RN) 0841 (Given - Provider: Em Jones, VASMI) 0922 (Given - Provider: Myrna Young, RN) [...]
Routine documented in this encounter Care Teams Business Process Coordinator Relationship Specialty Start Date End Date Lovely Vicente MD PCP - General 04/16/[address] [place] [address] documented as of this encounter
--- OUTSIDE RECORDS SUMMARY | 2022-04-27 08:21 | XMS_ITS | Encounter Summary ---
:1945 Author Organization [facility] Address [facility] [place] [address] Care Team Providers Name Role Phone Lovely Vicente MD Primary Care Provider Reason for Visit Auth/Cert Specialty Diagnoses / Procedures Referred By Contact Refer red To Contact Diagnoses STEMI (ST elevation myocardial infarction) NSTEMI STEMI Procedures CARDIAC CATHETERIZATION NAYE IPI Referral ID Status Reason Start Date Expiration Date Visits Requ ested Visits Authorized [id number] 1 1 Encounter Details Date Type Department Care Team Description 07/07/2017 Surgery Main Operating Room Yuan Webber, @ CABG, USING ARTERIAL Barbara Ocampo MD GRAFT;SINGLE ARTERIAL Hospital [facility] GRAFT (WRVU 33.75) [facility] DR [place]idd[place] [address] SURGERY [phone] [place], [place] [address] (Wo rk) Social History Tobacco [...] in this encounter Discharge Summaries Martha Teague, SOFTWARE QUALITY ASSURANCE ENGINEER - 07/14/2017 9:38 AM EST Inpatient - Discharge Summary Patient Name: Gregory Hoagn Patient Age: 72 y.o. Birthdate: 1945 Language: [...] , @ 1:20p Patient to follow-up with Consulting Hr Professional/heart failure team in one week. An appointment will be made for you. You may call [phone] Patient to follow-up with Cardiac Surgery, Dr. Yuan Webber, in ~ 4 weeks with CXR, EKG. Inpatient Provider Contact Information: [facility] Section of Cardiac Surgery [facility] [place] [address] FAX [phone] Discharge Diagnoses (Hospital Problems) Primary Diagnoses: CAD [...] SETUP performed by Manny Mcknight MD at [facility] OR ??? PRO CABG, ARTERIAL, SINGLE N/A 07/07/2017 @CABG, USING ARTERIAL GRAFT;SINGLE ARTERIAL GRAFT (WRVU 33.75) performed by Yuan Webber MD at [facility] OR ??? PRO CABG, ARTERY-VEIN, TWO N/A 07/07/2017 @CABG, TWO VENOUS GRAFTS & ARTERIAL GRAFT (WRVU 7.93) performed by Yuan Webber MD at [facility] OR ??? PRO COLONOSCOPY, REMV LESN, SNARE 01/16/2014 COLONOSCOPY, POLYPECTOMY, REMOVAL LESION BY SNARE performed by Nohemi Jaimes MD at [facility] ENDOSCOPY ??? PRO ENDOSCOPY W/VIDEO-ASST VEIN HARVEST, CABG Right 07/07/2017 ENDOSCOPIC HARVEST VEIN(S) FOR CABG (WRVU 0.31) performed by Yuan Webber MD at [facility] OR ??? PRO THYROIDECTOMY 03/28/2013 THYROIDECTOMY, TOTAL OR COMPLETE performed by Manny Mcknight MD at [facility] OR Prior To Admission Medications Prescriptions Prior to Admission Medication Sig Dispense Refill Last Dose ??? levothyroxine (SYNTHROID) 175 mcg Tablet Take 1 tablet by mouth daily. 90 tablet 3 07/05/2017 at0545 ??? ascorbic acid, vitamin C, (VITAMIN C) [...] Hospital Course: Gregory Hoang was admitted to [facility] on 07/05/2017 via the Cardiology Service. During his hospital course, he was taken emergently to the laborer heading for an ongoing STEMI. An IABP was [...] not take or discontinue any prescription or pncq-pcp-zkfvrsh medications without asking your doctor or pharmacist [...] day to have your insulin doses adjusted. [facility] Endocrine clinic office Discharge Instructions: Call your doctor if: You have a fever of greater than 101 degrees, shaking chills, if you develop redness or drainage from your incision sites, or if you have questions. Please call your surgeon's office if you have any discharge or drainage from your chest incision. Your surgeon, Dr. Yuan Webber and/or the Cardiac Surgery Physician Storage Battery Inspector Team may be reached at . Weight: [...] Dr. Yuan Webber. You may use a [place] Track or treadmill but avoid any pulling [...] friends, go to a movie, go to mosque, etc. Heavy activities: No hunting, skiing, jogging, snow shoveling, snowmobiling, lawn mowing, swimming, golf or tennis until after your return appointment with the surgeon. Do not ride motorcycles, [employer]'s tractors or horses. Avoid the use of [...] , @ 1:20p Patient to follow-up with Consulting Hr Professional/heart failure team in one week. Appointment will be made for you. You may call [phone] Patient to follow-up with Cardiac Surgery, Dr. Yuan Webber, in ~ 4 weeks with CXR, EKG. Cardiac Rehabilitation: Gregory Hoang was seen today regarding participation in the outpatient Phase 2 Cardiac Rehabilitation at [facility]. The patient agrees to a referral to this program. The referral will be sent at discharge and the patient should be contacted by the Program within 1- 2 weeks from discharge. ?? Future Appointments and Orders Future Appointments Provider Department Dept Phone 09/07/2017 3:00 PM LAB, THREE L Lab 3L [facility] [phone] 09/07/2017 4:00 PM Luz Prescott MD Endocrinology at [place] [phone] Future Orders Complete By Expires EKG 12 Lead [EKG1 Custom] 08/14/2017 02/13/2018 Process Instructions: Scheduling Instructions: Questions: Which DH location will this be performed?: [place] Is a rhythm strip needed?: No If EKG Reason is Pre-op Evaluation, indicate diagnosis for surgery.: XR Chest PA & Lateral (Generic) [[id number] Custom] 08/14/2017 02/13/2018 Process Instructions: Scheduling Instructions: Questions: Where will study be performed?: [place] Rad[facility] Portable exam?: Reason for exam and clinical history: CABG x 3 Other pertinent information: Stat read required?: Date of injury if applicable: Requested Time: Referral to Cardiac Rehab [QFC305 Custom] As directed Process Instructions: If no progress note charted, please enter Clinical details in comments. Scheduling Instructions: Questions: My question or request is: s/p CABG. Cardiac rehab at [facility] Referral to Home Health - at DISCHARGE [SVO2445 CPT(R)] As directed Process Instructions: Scheduling Instructions: Comments: DOCUMENTATION FOR VNA SERVICES (INCLUDING THOSE PATIENTS WITH MEDICARE COVERAGE REQUIRING HOME VNA SERVICES AND/OR HOSPICE SERVICES) PATIENT'S LOCATION: Gregory Hoang [address] [place] [address] [place] [id number] (home) Telephone Information: Cheese Cook's Name: self In discussion with the attending physician, it is certified that this patient is under their care and that they, or a Nurse Practitioner, or Physician Storage Battery Inspector who is working directly with them, had [...] HEALTH AGENCY: [facility] ([facility] [place] [facility]-is in [place]) PHONE: [phone] FAX: [phone] RN orders: Cardiopulmonary assessment, incisional assessment, assess vital signs, assessment of rehab progress, medication management and effectiveness, home safety evaluation. Please draw INR if indicated and send result to:Dr Vicente [phone] PT ORDERS: Continue rehab for endurance, gait stability and strength with mobility and transfers. Home safety evaluation. Home exercise program if appropriate. Start of Care Date:24-48 hours after discharge SPECIAL INSTRUCTIONS: For any follow up questions, needs, or issues please call the Cardiac Surgery Office at [phone] FOR MEDICARE ONLY: (please delete this section [...] Questions: Agency name and contact information: [facility] Patient location post discharge: home What services are requested: Registered Nurse Physical Therapy Start date: Responsible MD post discharge contact info: PCP Arrangements for VNA/home care: As above. VN RN OR PCP TO PLEASE REMOVE CHEST TUBE SUTURES ON OR AFTER 07/17/2017 Signed: Martha Teague APRN [facility] Section of Cardiac Surgery [facility] [place] [address] FAX [phone] Date: 07/14/2017 CC: MD Ivania Cr Betsy, PA [address] [place] [phone] documented in this encounter Discharge Instructions Discharge [...] day to have your insulin doses adjusted. [facility] Endocrine clinic office Patient InstructionsStMartha mcdonald APRN [...] not take or discontinue any prescription or dmtm-xrq-wtxihhy medications without asking your doctor or pharmacist [...] day to have your insulin doses adjusted. [facility] Endocrine clinic office ? Discharge Instructions: ?? Call your doctor if: You have a fever of greater than 101 degrees, shaking chills, if you develop redness or drainage from your incision sites, or if you have questions. Please call your surgeon's office if you have any discharge or drainage from your chest incision. Your surgeon, Dr. Yuan Webber and/or the Cardiac Surgery Physician Storage Battery Inspector Team may be reached at . ?? [...] Dr. Yuan Webber. You may use a [place] Track or treadmill but avoid any pulling [...] friends, go to a movie, go to mosque, etc. ?? Heavy activities: No hunting, skiing, jogging, snow shoveling, snowmobiling, lawn mowing, swimming, golf or tennis until after your return appointment with the surgeon. Do not ride motorcycles, [employer]'s tractors or horses. Avoid the use of [...] @ 1:20p ?? Patient to follow-up with Consulting Hr Professional/heart failure team in one week. An appointment has been made for you, you can call [phone] ?? Patient to follow-up with Cardiac Surgery, Dr. Yuan Webber, in ~ 4 weeks with CXR, EKG. ? Cardiac Rehabilitation: Gregory Hoang??was seen today regarding participation in the outpatient Phase 2 Cardiac Rehabilitation at [facility]. ?? The patient agrees to a referral to this program.? The referral will be sent at discharge and the patient should be contacted by the Program within 1- 2 weeks from discharge. ? Future Appointments and Orders Future Appointments Provider Department Dept Phone ?? 09/07/2017 3:00 PM LAB, THREE L Lab 3L [facility] [phone] ?? 09/07/2017 4:00 PM Luz Prescott MD Endocrinology at [place] [phone] Future Orders Complete By Expires ?? EKG 12 Lead [EKG1 Custom] 08/14/2017 02/13/2018 ?? Process Instructions: ? Scheduling Instructions: ? Questions: ? Which location will this be performed?: [place] ?? Is a rhythm strip needed?: No ?? If EKG Reason is Pre-op Evaluation, indicate diagnosis for surgery.: ?? XR Chest PA & Lateral (Generic) [[id number] Custom] 08/14/2017 02/13/2018 ?? Process Instructions: ? Scheduling Instructions: ? Questions: ? Where will study be performed?: [place] Rad[facility] ?? Portable exam?: ?? Reason for exam and clinical history: CABG x 3 ?? Other pertinent information: ?? Stat read required?: ?? Date of injury if applicable: ?? Requested Time: ?? Referral to Cardiac Rehab [JKA264 Custom] As directed ? Process Instructions: ?? If no progress note charted, please enter Clinical details in comments. ?? Scheduling Instructions: ? Questions: ? My question or request is: s/p CABG. Cardiac rehab at [facility] ? Arrangements for VNA/home care: As [...] RN - 07/14/2017 2:34 PM EST The patient/cash application representative has been provided a list of Home Health Agencies/DME vendors which serve their preferred geographic area. A letter describing our affiliations was reviewed with them and theywere educated about their right to choose where referrals are placed. Patient requests referral to [facility]. PHONE: [phone] FAX: [phone] Expected date of discharge: 07/14 Referral routed to the Caving Guide for matching with agency/vendor and to provide [...] day to have your insulin doses adjusted. [facility] Endocrine clinic office Kathie Carrera APRN [facility] Endocrinology Diabetes Management Pager [phone] minutes of this 35 minute visit was spent with the patient in counseling on diabetes and treatment plan, reviewing all glucose and insulin data as well as relevant laboratory results with the patient, and coordination of care on the inpatient unit including nursing and primary team. Zulma Power RN - 07/14/2017 10:30 AM EST The patient/cash application representative has been provided a list of Home Health Agencies/DME vendors which serve their preferred geographic area. A letter describing our affiliations was reviewed with them and theywere educated about their right to choose where referrals are placed. Patient requests referral to : [facility] ([facility] [place] [facility] in [place] PHONE: [phone] FAX: [phone]. Expected date of discharge: 07/14/17 Referral routed to the Caving Guide for matching with agency/vendor and to provide [...] hours. If BG remains greater than 240, [id number] units (no more than three times) &??call [...] Will continue to follow Katerin Azul APRN [facility] Endocrinology Diabetes Management Pager [phone] minutes of this 25 minute visit [...] of infiltration/extravasation Discussed plan of care with TONNAGE COMPILATION CLERK and RN. Elevate exrtemity and apply [...] measuring tape and identifier in the photo) CUSTOMER MANAGEMENT SPECIALIST CARING FOR THIS PATIENT WILL CONTINUE [...] measuring tape and identifier in the photo) CUSTOMER MANAGEMENT SPECIALIST CARING FOR THIS PATIENT WILL CONTINUE [...] of infiltrates attached here. L Martha Teague, SOFTWARE QUALITY ASSURANCE ENGINEER - 07/13/2017 8:01 AM EST Cardiac Surgery Progress Note: ID: [id number] 72 year old male POD#6 s/p CABGx3 [...] discharge. ?? I have met with the patient/cash application representative to discuss discharge planning needs. I have provided the [facility], Office of Care Management letter from the Material Planning Analyst pertaining to rehab referrals. I have also provided a letter describing our affiliations within the [facility] and educated them about their right to choose where referrals are placed. ?? I reviewed the different levels of rehab including SNF, swing, acute and LTAC with the patient/cash application representative. ?? The patient/cash application representative has been provided a list of facilities within their preferred geographic area. ?? I have requested that the patient/cash application representative provide at least three choices for referral. ?? The patient/cash application representative have requested referrals to: ?? [facility]. [facility] ?? 2. [facility] ?? 3. More to be entered ?? Expected date of discharge: 07/14 Note routed to Caving Guide who will communicate referrals to facilities and [...] hours. If BG remains greater than 240, [id number] units (no more than three times) & call for new basal insulin orders. ??If less than 240 after two hours, give no insulin and resume prior schedule. Will continue to follow Katerin Azul APRN [facility] Endocrinology Diabetes Management Pager [phone] 20 minutes [...] AM EST Cardiac Surgery Progress Note: ID: [id number] 72 year old male POD#5 s/p CABGx3 [...] 07/11/2017 7:18 PM EST Patient arrived from [facility]. VSS. MSI dressing pulled off with [...] AM EST Cardiac Surgery Progress Note: ID: [id number] 72 year old male POD#4 s/p CABGx3 [...] in chair. O2 via NC Assessment: Gregory Hoagn is a 72 y.o. male with PMH [...] AM EST Cardiac Surgery Progress Note: ID: [id number] 72 year old male POD#3 s/p CABGx3 [...] Gas) No results found for: PHART, PO2ART, TBR4AHC Assessment/Plan: 72 year old male POD#3 s/p [...] Mami Thao - 07/09/2017 6:29 PM EST Valet Parker Encounter Note Patient Name: Gregory Hoang : [id number] MR#: [id number] Admit Date: 07/05/2017 4:20 PM Hospital Day 4 days Narrative: Patient was sitting in chair, hugging heart pillow, opened his eyes, nodding to come into room Assessment: Patient was sleepy. Intervention and Outcome: Introduced coat joiner lockstitch services and patient reached his hand out in appreciation. Follow-up: Valet Parker remains available for support. Time in Direct [...] 10:45 AM EST Report given to staff anesthesiologist to cover care Maddison Cee PA - 07/09/2017 9:00 AM EST Cardiac Surgery Progress Note: ID: [id number] 72 year old male POD#2 s/p CABGx3 [...] completed shifts: In: 7977.4 [I.V.:7477.4; Other:500] Out: 8245 [Urine:3000; Other:615] I- 4 L O- 2.7 [...] Attending Surgeon on rounds. Signed: STEPHANIE Iqbal [facility] Section of Cardiac Surgery [...] when IABP d/c'ed. Gretchen Carolina, PT Pager [phone] Maddison Cee PA - 07/08/2017 11:27 AM EST Cardiac Surgery Progress Note: ID: [id number] 72 year old male POD#1 s/p CABGx3 [...] Attending Surgeon on rounds. Signed: STEPHANIE Iqbal [facility] Section of Cardiac Surgery [...] in place in R femoral. No hematoma. NET LEAD DEVELOPER- Intact Psych- Anxious Skin- Dry, no peripheral [...] intact. IABP in place in R femoral. NET LEAD DEVELOPER- Intact Psych- Anxious Skin- Dry, no peripheral [...] note for details. DAPHNE SHAHID MD Pager [phone] Jet Mckenna MD - 07/05/2017 6:48 PM EST Preliminary Cardiac Catheterization Procedure Note: Procedure(s) performed: Left heart cath, IABP insertion Access: Right STAFF CLIMATE SCIENTIST-->8fr IABP A time-out was conducted prior to [...] Heparin gtt maintained. Pt transferred to laborer heading. documented in this encounter H&P Notes Daphne Shahid MD - 07/05/2017 6:08 PM EST CARDIOLOGY HISTORY & PHYSICAL EXAM Date of Admission: 07/05/2017 ( Hospital Day 0 days ) Responsible Attending: Daphne Shahid MD PCP: Lovely Vicente MD PCP#: [phone] Patient Active Problem List Diagnosis Code ??? [...] load with heparin drip and transferred to [facility]. While there, continued sob, question of chest pain. Stat TTE showing WMA diffusely and EF around 20%. No significant valvular disease. Taken to the laborer heading urgently for ongoing STEMI. [facility] Labs: INR 1.0 WBC 5.88 Hgb [...] I/O - s/p lasix in the laborer heading, redose to aim net neg 1L by [...] Medicine, PGY-2 Cardiology S1, Team Pager # [phone] CARDIOLOGY ATTENDING NOTE Patient: Gregory Hoang Date [...] amenable for PCI. DAPHNE SHAHID MD Pager [phone] documented in this encounter Miscellaneous Notes Consult Note - Daphne Shahid MD - 07/14/2017 11:46 AM EST Heart Failure Service Inpatient Consult Note Gregory Hoang Date of : 1945 Age: 72 y.o. Today's date: 07/14/17 PCP: Lovely Vicente MD MEDIA LIAISON OFFICER: None Place of Service: C451-A Reason for [...] SETUP performed by Manny Mcknight MD at [facility] OR ??? PRO CABG, ARTERIAL, SINGLE N/A 07/07/2017 @CABG, USING ARTERIAL GRAFT;SINGLE ARTERIAL GRAFT (WRVU 33.75) performed by Yuan Webber MD at [facility] OR ??? PRO CABG, ARTERY-VEIN, TWO N/A 07/07/2017 @CABG, TWO VENOUS GRAFTS & ARTERIAL GRAFT (WRVU 7.93) performed by Yuan Webber MD at [facility] OR ??? PRO COLONOSCOPY, REMV LESN, SNARE 01/16/2014 COLONOSCOPY, POLYPECTOMY, REMOVAL LESION BY SNARE performed by Nohemi Jaimes MD at [facility] ENDOSCOPY ??? PRO ENDOSCOPY W/VIDEO-ASST VEIN HARVEST, CABG Right 07/07/2017 ENDOSCOPIC HARVEST VEIN(S) FOR CABG (WRVU 0.31) performed by Yuan Webber MD at [facility] OR ??? PRO THYROIDECTOMY 03/28/2013 THYROIDECTOMY, TOTAL OR COMPLETE performed by Manny Mcknight MD at [facility] OR Outpt Meds: Current Outpatient Prescriptions [...] following studies: EKG 07/14/17: NSR 75 bpm, LIDAR ANALYST anterior infarct, LAD CXR 07/11/17: FINDINGS: Sternotomy wires. The patient has been extubated, left chest tube removed, and [place] catheter removed since the 07/07/2017 study. Atelectasis [...] was discussed with Zehra. Jaden Kelley MD Carpenters Helper Pager [phone] CARDIOLOGY ATTENDING NOTE Patient: Gregory Hoang Date [...] heart failure clinic. DAPHNE SHAHID MD Pager [phone] Plan of Care - Alden Chavarria, ACCOUNT STRATEGIST - 07/14/2017 11:35 AM EST Problem: Patient [...] Discharge Disposition: home with assist Alden Chavarria, ACCOUNT STRATEGIST Pager: [phone] Inpatient Physical Therapy Problem: Acute Rehab Services [...] sit/sit to supine -- Bed Mobility Goal, [place] Level supervision required -- Bed Mobility Goal, [...] - 3 days -- Gait Training Goal, [place] Level supervision required -- Gait Training Goal, [...] days -- Transfer Training Goal, Activity Type iks-bf-mqhlq/vhsxm-ww-nxr;hrv-lp-ldcdi/hdglj-ud-mir;toilet -- Transfer Train Goal, [place] Level supervision required -- Transfer Training Goal, [...] keeping present for 2 days per family. Secretary noted of frustrations, house keeping sent to room. Patient offered showered twice, refused. at bedside, frustrated that shower not complete, informed that patient had refused several times. requesting to see STAKE DRIVER, paged sent to Martha, will come to bedside (middle of consult). not willing to wait, Martha notified that family had gone home. Encouraged to come for morning rounds a t 8am. Diabetes team at bedside - insulin adjustments made. Call cabello in reach. Continue to monitor. PLAN MOVING FORWARD: Ambulate, dressing changes BID, Please change drsg at 4am per Martha STAKE DRIVER request. INDIVIDUALIZED FALL PREVENTION INTERVENTIONS: Patient-specific [...] monitoring required during toileting and ADLs]: RN TONNAGE COMPILATION CLERK Surveillance [continuous indirect monitoring]: Barrett Monitor [...] Anticipated Discharge Disposition: home with assist Pager: [phone] CLARISSA SEGAL, PT 07/12/2017 Physical Therapy Rehabilitation [...] to sit/sit to supine Bed Mobility Goal, [place] Level supervision required Bed Mobility Goal, Additional Goal adheres to psternal precautions for transfer Goal: Gait Training Goal Stand Alone Therapy Goal Outcome: Ongoing (Interventions Implemented as Appropriate) 07/12/17 1225 Gait Training Goal Gait Training Goal, Date Established 07/12/17 Gait Training Goal, Time to Achieve 2 - 3 days Gait Training Goal, [place] Level supervision required Gait Training Goal, Assist [...] 3 days Transfer Training Goal, Activity Type trb-az-mprce/wsoty-xc-zzv;llk-ng-zdsea/eqvpw-ai-pbk;toilet Transfer Train Goal, [place] Level supervision required Transfer Training Goal, Additional Goal adheres to sternal precautions during transfer Consult Note - Octavia Vaughn RN - 07/12/2017 10:50 AM EST [facility] CARDIAC REHABILITATION Gregory Hoang was seen today regarding participation in the outpatient Phase 2 Cardiac Rehabilitation at [facility]. The patient agrees to a referral [...] IV site, amio to other piv and BELT WEAVER at bedside to help assess, IV removed. [...] staff, he stood and marched in place. [place] weak, wanting to sit back down. Remained [...] Health/Prescription Coverage: Primary Insurance: MEDICARE Secondary Insurance: DripDrop Prescription Coverage: yes Preferred Pharmacy: [facility] Other: none Primary Care Provider: Lovely Vicente MD [phone] Patient/Caregiver Goals of Treatment:live and get my breath back Potential Needs for Transition of Care: Rehab/SNF: [facility]: DME: TBD Dialysis: na Community Resources: available Transportation: yes Other: none Anticipated Barriers to Discharge/Special Considerations: none Plan: Likely SNF Rehab before home A member of the Care Management team will continue to monitor progress, follow for continuity of care and assist with transition of care planning. ERLIN Weiss Pager: [phone] Consult Note - Katerin Azul RN - [...] potential to d/c gtt and start CF. equipment operator intermodal yard diabetes care: Medications - Outpatient treatment regimen recommendations pending based on the hospital course. Monitoring - continue BG tid ac & hs Diet - low fat/low carb diet Exercise - weight-bearing exercise 30 min/day, as tolerated Thank you for allowing us to provide care for your patient W/E coverage, Dr. Jeane Tatum, pager [phone] Katerin Azul APRN Endocrinology Diabetes Management Pager [phone] Plan of Care - Stephanie Godoy RN [...] Webber MD - 07/07/2017 6:27 PM EST [facility] Operative Note Patient Name: Gregory Hoang : [id number] MR#: [id number] Case Date: 07/07/2017 Surgeon: Surgeon(s) and Role: * Yuan Webber MD - Primary * Michael Drake PA - Physician Storage Battery Inspector * Linda Flores PA - Physician Storage Battery Inspector Preoperative diagnosis: 3VD Postoperative diagnosis: CAD, severe [...] Operative Note Patient Name: Gregory Hoang : [id number] MR#: [id number] Case Date: 07/07/2017 Surgeon: Surgeon(s) and Role: * Yuan Webber MD - Primary * Michael Drake PA - Physician Storage Battery Inspector * Linda Flores PA - Physician Storage Battery Inspector Preoperative diagnosis: 3VD Postoperative diagnosis: CAD, severe [...] Full Code Katty Hahn, MS3 [facility] Cardiology S1 (Pager [phone]) Plan of Care - Emelia Ibarra RN [...] COMPLETE performed by aMnny Mcknight MD at [facility] MAIN OR Social History: Social History Social [...] with other involved physicians Yuan Webber MD [phone] Med Student Progress Note - Katty Hahn [...] BiPAP - s/p lasix in the laborer heading, was net -1.5L - s/p plavix load, [...] insulin drip - hold metformin - f/u [facility] ?? #Home Meds - continue levothyroxine 175mcg - CPAP at night ?? # Routine - DVT PPx: heparin drip - Diet: Healthy heart diet, NPO at midnight for CABG tomorrow - Code Status: FULL - Dispo: CVCC Katty Hhan, M3 [facility] Cardiology S1 (Pager [phone]) Plan of Care - Stephanie Godoy RN - 07/06/2017 5:00 AM EST Problem: Patient Care Overview Goal: Plan of Care Review 07/06/17 1156 Coping/Psychosocial Plan Of Care Reviewed With patient;family [...] urinal without difficulty. Lasix given in laborer heading, 1.4 L out at this time. Pt [...] Outcome: Ongoing (Interventions Implemented as Appropriate) 07/06/17 8326 Cardiac: ACS (Acute Coronary Syndrome) Problems Assessed [...] MD [facility] [address] [place] [address] (Wo rk) 05/28/2022 Laboratory Appointment Lab 05/28/2022 Office Visit Cardiology Zulma Dolan MD [facility] [place] [address] Liz Poole PA [facility] [place] [address] 06/10/2022 Office Visit Dermatology Laura Scherer MD [facility] [address] [place], [place] [address] (Wo rk) Scheduled Orders Name [...] procedure are i n the results section. SLAB WORKER SCAN 07/15/2017 12:00 Res ults for [...] Routine 07/08/2017 4:00 Results f or this ([facility]) AM EST procedure [...] Routine 07/06/2017 7:40 Results f or this ([facility]) PM EST procedure are i n the [...] Timed 07/06/2017 2:10 Results f or this ([facility]) PM EST procedure are i n the [...] section. TYPE AND SCREEN Routine 07/06/2017 12:00 ([facility]) PM EST APTT STAT 07/06/2017 11:24 Results [...] Routine 07/06/2017 8:10 Results f or this ([facility]) AM EST procedure are i n the [...] Routine 07/06/2017 2:20 Results f or this ([facility]) AM EST procedure are i n the [...] Routine 07/05/2017 8:20 Results f or this ([facility]) PM EST procedure are i n the [...] Timed 07/05/2017 4:55 Results f or this ([facility]) PM EST procedure are i n the [...] 2017 EXAMINATION: XR CHEST PA AND LATERAL ([employer]) CLINICAL HISTORY: CABG x 3 TECHNIQUE: PA [...] Teague APRN IMG DX ORDERABLES SCAN DOC: SLAB WORKER (07/15/2017 12:00 AM EST) Narrative 07/15/2017 [...] 186 65 - 199 BARBARA DAVIS mg/dL [facility] Comment: Supplemental [...] City/State/ZIP Code Phon e Number [place] [id number] [facility] [address] POCT Glucose (07/14/2017 7:52 AM EST) athologist Signature POC Glucose 126 65 - 199 [facility] mg/dL [facility] Comment: Supplemental [...] Address City/State/ZIP Code Phon e Number [address] (ABNORMAL) Prothrombin Time (07/14/2017 [...] Address City/State/ZIP Code Phon e Number [address] Potassium (07/14/2017 4:46 AM EST) athologist Signature Potassium 4.3 3.5 - 5.0 [facility] mmol/L [facility] Comment: Please [...] Address City/State/ZIP Code Phon e Number [address] POCT Glucose (07/14/2017 4:34 AM EST) athologist Signature POC Glucose 115 65 - 199 [facility] mg/dL [facility] Comment: [...] Health/[facility]/ZIP Code Phon e Number [address] POCT Glucose (07/13/2017 11:33 PM EST) athologist Signature POC Glucose 132 65 - 199 [place] mg/dL [place] [...] [facility]/ZIP Code Phon e Number [address] POCT Glucose (07/13/2017 9:25 PM EST) athologist Signature POC Glucose 121 65 - 199 [place] mg/dL [place] [...] Address City/State/ZIP Code Phon e Number [address] POCT Glucose (07/13/2017 4:55 PM EST) P athologist Signature POC Glucose 79 65 - 199 [facility] mg/dL [facility] Comment: [...] Address City/State/ZIP Code Phon e Number [address] POCT Glucose (07/13/2017 11:16 AM EST) P athologist Signature POC Glucose 163 65 - 199 [place] mg/dL [place] [...] Address City/State/ZIP Code Phon e Number [address] POCT Glucose (07/13/2017 8:07 AM EST) P athologist Signature POC Glucose 96 65 - 199 [place] mg/dL [facility] Comment: Supplemental [...] [facility]/[place] [address] (ABNORMAL) Prothrombin Time (07/13/2017 [...] Health/[facility]/[place] [address] (ABNORMAL) Basic Metabolic Panel (non-fasting) (07/13/2017 4:26 AM EST) P athologist Signature Glucose Lvl 95 65 - 199 [facility] mg/dL [facility] Comment: Diabetes: [...] [facility] Estimated GFR 60 >=60 [facility] Comment: The reported eGFR should be multiplied b y 1.2 for patients. The MDRD is not an appropriate measure o f renal function for patients with body mass extremes or in patients with acute kidney failure. [email or web address] [email or web address] Specimen Anatomical Collection Method Collection Time Receive d Time (Source) Location / / Volume Laterality Blood specimen 07/13/2017 4:26 AM 017 4:46 (specimen) EST AM EST Resulting Agency Comment Spec In Lab Makayla Wilson APRN CHEMISTRY ORDERABLES Performing Organization Address City/[facility]/ZIP Code Phon e Number [address] POCT Glucose (07/13/2017 3:52 AM EST) P athologist Signature POC Glucose 93 65 - 199 [facility] mg/dL [facility] Comment: Supplemental ranges: <140 mg/dL before meals <180 mg/dL all other times of the day Specimen Anatomical Collection Method Collection Time Receive d Time (Source) Location / / Volume Laterality Blood specimen 07/13/2017 3:52 AM 017 3:52 (specimen) EST AM EST Yuan Webber MD POINT OF CARE TEST ORDERABLE S Performing Organization Address City/State/[place] [address] POCT Glucose (07/13/2017 12:21 AM EST) athologist Signature POC Glucose 80 65 - 199 [place] mg/dL [place] [...] Address City/State/ZIP Code Phon e Number [address] POCT Glucose (07/12/2017 8:22 PM EST) athologist Signature POC Glucose 119 65 - 199 [facility] mg/dL [facility] Comment: [...] Address City/State/ZIP Code Phon e Number [address] POCT Glucose (07/12/2017 4:02 PM EST) athologist Signature POC Glucose 114 65 - 199 [facility] mg/dL [facility] Comment: [...] Organization Address City/State/[place] [address] POCT Glucose (07/12/2017 11:28 AM EST) athologist Signature POC Glucose 164 65 - 199 [facility] Comment: Supplemental [...] Address City/State/ZIP Code Phon e Number [address] POCT Glucose (07/12/2017 7:34 AM EST) athologist Signature POC Glucose 109 65 - 199 [facility] mg/dL [facility] Comment: Supplemental ranges: <140 mg/dL before meals <180 mg/dL all other times of the day Specimen Anatomical Collection Method Collection Time Receive d Time (Source) Location / / Volume Laterality Blood specimen 07/12/2017 7:34 AM 017 7:34 (specimen) EST AM EST Yuan Webber MD POINT OF CARE TEST ORDERABLE S Performing Organization Address City/State/[place] [address] (ABNORMAL) Basic Metabolic Panel (non-fasting) (07/12/2017 4:11 AM EST) athologist Signature Glucose Lvl 92 65 - 199 [facility] Comment: Diabetes: [...] or in patients with acute kidney failure. [email or web address] [email or web address] Specimen Anatomical Collection Method Collection Time Receive d Time (Source) Location / / Volume Laterality Blood specimen 07/12/2017 4:11 AM 017 8:57 (specimen) EST AM EST Resulting Agency Comment Spec In Lab Makayla Katie QUINONES CHEMISTRY ORDERABLES Performing Organization Address City/State/[place] [address] (ABNORMAL) Prothrombin Time (07/12/2017 [...] Health/[facility]/[place] [address] Potassium (07/12/2017 4:11 AM EST) athologist Signature Potassium 3.8 3.5 - 5.0 [facility] mmol/L [facility] Comment: Please [...] [facility]/[place] [address] POCT Glucose (07/12/2017 4:10 AM EST) athologist Signature POC Glucose 90 65 - 199 [facility]/dL [facility] Comment: Supplemental [...] [facility]/[place] [address] POCT Glucose (07/11/2017 11:57 PM EST) athologist Signature POC Glucose 98 65 - 199 [facility] mg/dL [facility] Comment: Supplemental ranges: <140 mg/dL before meals <180 mg/dL all other times of the day Specimen Anatomical Collection Method Collection Time Receive d Time (Source) Location / / Volume Laterality Blood specimen 07/11/2017 11:57 7 (specimen) PM EST 11:57 PM EST Yuan Webber MD POINT OF CARE TEST ORDERABLE S Performing Organization Address City/State/[place] [address] POCT Glucose (07/11/2017 8:32 PM EST) P athologist Signature POC Glucose 146 65 - 199 [facility] mg/dL [facility] Comment: Supplemental ranges: <140 mg/dL before meals <180 mg/dL all other times of the day Specimen Anatomical Collection Method Collection Time Receive d Time (Source) Location / / Volume Laterality Blood specimen 07/11/2017 8:32 PM 017 8:32 (specimen) EST PM EST Yuan Webber MD POINT OF CARE TEST ORDERABLE S Performing Organization Address City/State/[place] [address] XR Chest PA & [...] e xtubated, left chest tube removed, and [place] catheter removed since the study. Atelectasis at [...] e xtubated, left chest tube removed, and [place] catheter removed since the study. Atelectasis at [...] - 199 [facility] mg/dL [facility] Comment: Supplemental [...] [facility]/[place] [address] POCT Glucose (07/11/2017 11:55 AM EST) athologist Signature POC Glucose 176 65 - 199 [place] mg/dL [place] [...] Organization Address City/State/[place] [address] POCT Glucose (07/11/2017 7:53 AM EST) athologist Signature POC Glucose 189 65 - 199 [facility] mg/dL [facility] Comment: Supplemental ranges: <140 mg/dL before meals <180 mg/dL all other times of the day Specimen Anatomical Collection Method Collection Time Receive d Time (Source) Location / / Volume Laterality Blood specimen 07/11/2017 7:53 AM 017 7:53 (specimen) EST AM EST Yuan Webber MD POINT OF CARE TEST ORDERABLE S Performing Organization Address City/[facility]/ZIP [facility] Phon e Number [address] POCT Glucose (07/11/2017 4:22 AM EST) athologist Signature POC Glucose 151 65 - 199 [facility] mg/dL [facility] Comment: Supplemental ranges: <140 mg/dL before meals <180 mg/dL all other times of the day Specimen Anatomical Collection Method Collection Time Receive d Time (Source) Location / / Volume Laterality Blood specimen 07/11/2017 4:22 AM 017 4:22 (specimen) EST AM EST Yuan Webber MD POINT OF CARE TEST ORDERABLE S Performing Organization Address City/[facility] Phon e Number [address] Potassium (07/11/2017 2:20 AM EST) athologist Signature Potassium 4.5 3.5 - 5.0 [facility] mmol/L [facility] Comment: Please [...] Address City/State/ZIP Code Phon e Number [address] POCT Glucose (07/11/2017 12:17 [...] [facility]/ZIP Code Phon e Number [address] POCT Glucose (07/10/2017 8:47 PM EST) athologist Signature POC Glucose 191 65 - 199 [place] mg/dL [place] [...] [facility]/ZIP Code Phon e [place] [address] POCT Glucose (07/10/2017 4:06 PM EST) athologist Signature POC Glucose 131 65 - 199 [place] mg/dL [place] [...] Organization Address City/State/[place] [address] POCT Glucose (07/10/2017 3:08 PM EST) athologist Signature POC Glucose 151 65 - 199 [place]HA[place] mg/dL [place] [...] Address City/State/ZIP Code Phon e Number [address] POCT Glucose (07/10/2017 2:25 PM EST) athologist Signature POC Glucose 146 65 - 199 [facility] mg/dL [facility] Comment: [...] Address City/State/ZIP Code Phon e Number [address] POCT Glucose (07/10/2017 1:23 PM EST) athologist Signature POC Glucose 166 65 - 199 [place]HAORYAN mg/dL [place] [...] Organization Address City/State/[place] [address] POCT Glucose (07/10/2017 11:52 AM EST) P athologist Signature POC Glucose 157 65 - 199 [place] mg/dL [place] [...] Address City/State/ZIP Code Phon e Number [address] POCT Glucose (07/10/2017 11:01 AM EST) athologist Signature POC Glucose 158 65 - 199 [facility] mg/dL [facility] Comment: [...] Address City/State/ZIP Code Phon e Number [address] POCT Glucose (07/10/2017 9:54 AM EST) athologist Signature POC Glucose 160 65 - 199 [place]HAORY[place] mg/dL [place] [...] Organization Address City/State/[place] [address] POCT Glucose (07/10/2017 8:58 AM EST) athologist Signature POC Glucose 183 65 - 199 [place] ZHAORYAN mg/dL [place] [...] Organization Address City/State/[place] [address] POCT Glucose (07/10/2017 8:01 AM EST) athologist Signature POC Glucose 173 65 - 199 [place] mg/dL [place] [...] Address City/State/ZIP Code Phon e Number [address] POCT Glucose (07/10/2017 7:05 [...] Address City/State/ZIP Code Phon e Number [address] POCT Glucose (07/10/2017 6:00 AM EST) P athologist Signature POC Glucose 162 65 - 199 [facility] mg/dL [facility] Comment: Supplemental ranges: <140 mg/dL before meals <180 mg/dL all other times of the day Specimen Anatomical Collection Method Collection Time Receive d Time (Source) Location / / Volume Laterality Blood specimen 07/10/2017 6:00 AM 017 6:00 (specimen) EST AM EST Yuan Webber MD POINT OF CARE TEST ORDERABLE S Performing Organization Address City/State/[place] [address] (ABNORMAL) Differential, Automated (07/10/2017 4:28 AM EST) Patholo gist Method Time Signature Neutrophils % 87.9 % [facility] Neutr Abs (ANC) 10.70 (H) 1.70 - [facility] 6.10 [facility] x10(3)/[facility] LABORATORY Lymphocytes % 3.9 % [facility] Lymphocytes Abs 0.5 (L) 0.9 - 3.2 [facility] x10(3)/[facility] LABORATORY Monocytes % 7.0 % [facility] Monocyte Abs 0.8 0.3 - 0.9 [facility] x10(3)/[facility] LABORATORY Eosinophils % 0.3 % [facility] Eosinophils Abs 0.0 0.0 - 0.4 [facility] x10(3)/[facility] LABORATORY Basophils % 0.2 % [facility] Basophils Abs 0.0 0.0 - 0.1 [facility] x10(3)/[facility] LABORATORY Immature Gran % 0.70 [...] Organization Address City/State/[place] [address] (ABNORMAL) Hemogram (07/10/2017 4:28 AM EST) Analysis Performed At Patho logist Time Signature WBC 12.2 (H) 4.0 - 9.5 [facility] x10(3)/[facility] LABORATORY RBC 3.31 (L) 4.58 - [facility] 5.54 [facility] x10(6)/[facility] LABORATORY Hemoglobin 9.8 (L) 13.7 - [facility] 16.5 gm/dL [facility] Hematocrit 30.0 (L) 40.5 - [facility] 48.5 % [facility] MCV 90.6 82.9 - [facility] 93.1 [facility]ATORY MCH 29.6 27.5 - [facility] 32.1 pg [facility] MCHC 32.7 32.0 - [facility] 35.7 gm/dL [facility] Platelets 135 (L) 145 - 357 [facility] x10(3)/[facility] LABORATORY RDWSD 50.8 (H) 36.0 - [facility] 45.0 [facility] LABORATORY RDWCV 15.4 (H) 11.4 - [facility] 13.8 % [facility] MPV 10.0 7.6 - 12.9 [facility] LABORATORY nRBC % Auto 0.0 % [facility] nRBC Abs Auto 0.000 0.000 - [facility] 0.000 [facility] x10(3)/[facility] LABORATORY Specimen Anatomical Collection Method Collection Time Receive d Time (Source) Location / / Volume Laterality Blood specimen 07/10/2017 4:28 AM 017 4:36 (specimen) EST AM EST Resulting Agency Comment Spec In Lab Yuan Webber MD HEMATOLOGY ORDERABLES Performing Organization Address City/[facility]/[place] [address] (ABNORMAL) Basic Metabolic Panel (non-fasting) (07/10/2017 4:28 AM EST) P athologist Signature Glucose Lvl 178 65 - 199 [facility] mg/dL [facility] Comment: Diabetes: [...] [facility] Estimated GFR 60 >=60 [facility] Comment: The reported eGFR should be multiplied b y 1.2 for patients. The MDRD is not an appropriate measure o f renal function for patients with body mass extremes or in patients with acute kidney failure. [email or web address] [email or web address] Specimen Anatomical Collection Method Collection Time Receive d Time (Source) Location / / Volume Laterality Blood specimen 07/10/2017 4:28 AM 017 4:36 (specimen) EST AM EST Resulting Agency Comment Spec In Lab Yuan Webber MD CHEMISTRY ORDERABLES Performing Organization Address City/[facility]/[place] [address] POCT Glucose (07/10/2017 4:26 AM EST) P athologist Signature POC Glucose 176 65 - 199 [facility] mg/dL [facility] Comment: Supplemental ranges: <140 mg/dL before meals <180 mg/dL all other times of the day Specimen Anatomical Collection Method Collection Time Receive d Time (Source) Location / / Volume Laterality Blood specimen 07/10/2017 4:26 AM 017 4:26 (specimen) EST AM EST Yuan Webber MD POINT OF CARE TEST ORDERABLE S Performing Organization Address City/State/[place] [address] (ABNORMAL) POCT Glucose (07/10/2017 3:06 AM EST) athologist Signature POC Glucose 204 (H) 65 - 199 [facility] mg/dL [facility] Comment: Supplemental ranges: <140 mg/dL before meals <180 mg/dL all other times of the day Specimen Anatomical Collection Method Collection Time Receive d Time (Source) Location / / Volume Laterality Blood specimen 07/10/2017 3:06 AM 017 3:06 (specimen) EST AM EST Yuan Webber MD POINT OF CARE TEST ORDERABLE S Performing Organization Address City/State/[place] [address] (ABNORMAL) POCT Glucose (07/10/2017 2:10 AM EST) athologist Signature POC Glucose 203 (H) 65 - 199 [facility] mg/dL [facility] Comment: Supplemental [...] Address City/State/ZIP Code Phon e Number [address] POCT Glucose (07/10/2017 1:09 AM EST) P athologist Signature POC Glucose 196 65 - 199 [place]HA[place] mg/dL [place] [...] Address City/State/ZIP Code Phon e Number [address] POCT Glucose (07/10/2017 12:10 AM EST) athologist Signature POC Glucose 173 65 - 199 [place] mg/dL [place] [...] Address City/State/ZIP Code Phon e Number [address] POCT Glucose (07/09/2017 11:01 PM EST) athologist Signature POC Glucose 140 65 - 199 [place] mg/dL [place] [...] Organization Address City/State/[place] [address] POCT Glucose (07/09/2017 10:05 PM EST) athologist Signature POC Glucose 144 65 - 199 [facility] mg/dL [facility] Comment: Supplemental [...] Address City/State/ZIP Code Phon e Number [address] POCT Glucose (07/09/2017 9:31 PM EST) athologist Signature POC Glucose 121 65 - 199 [place] mg/dL [place] [...] Address City/State/ZIP Code Phon e Number [address] POCT Glucose (07/09/2017 9:03 PM EST) athologist Signature POC Glucose 98 65 - 199 [place] mg/dL [place] [...] Address City/State/ZIP Code Phon e Number [address] POCT Glucose (07/09/2017 8:09 PM EST) athologist Signature POC Glucose 117 65 - 199 [place] ZHAORYAN mg/dL [place] [...] Organization Address City/State/[place] [address] POCT Glucose (07/09/2017 5:40 PM EST) athologist Signature POC Glucose 155 65 - 199 [place] mg/dL [facility] Comment: Supplemental ranges: <140 mg/dL before meals <180 mg/dL all other times of the day Specimen Anatomical Collection Method Collection Time Receive d Time (Source) Location / / Volume Laterality Blood specimen 07/09/2017 5:40 PM 017 5:40 (specimen) EST PM EST Yuan Webber MD POINT OF CARE TEST ORDERABLE S Performing Organization Address City/State/[place] [address] POCT Glucose (07/09/2017 4:24 PM EST) athologist Signature POC Glucose 164 65 - 199 [place] mg/dL [place] [...] Address City/State/ZIP Code Phon e Number [address] POCT Glucose (07/09/2017 3:19 PM EST) athologist Signature POC Glucose 166 65 - 199 [place] mg/dL [facility] Comment: Supplemental ranges: <140 mg/dL before meals <180 mg/dL all other times of the day Specimen Anatomical Collection Method Collection Time Receive d Time (Source) Location / / Volume Laterality Blood specimen 07/09/2017 3:19 PM 017 3:19 (specimen) EST PM EST Yuan Webber MD POINT OF CARE TEST ORDERABLE S Performing Organization Address City/State/[place] [address] POCT Glucose (07/09/2017 2:26 PM EST) athologist Signature POC Glucose 179 65 - 199 [facility] mg/dL [facility] Comment: [...] Organization Address City/State/[place] [address] (ABNORMAL) POCT Glucose (07/09/2017 1:29 PM EST) athologist Signature POC Glucose 210 (H) 65 - 199 [place] mg/dL [facility] Comment: Supplemental ranges: <140 mg/dL before meals <180 mg/dL all other times of the day Specimen Anatomical Collection Method Collection Time Receive d Time (Source) Location / / Volume Laterality Blood specimen 07/09/2017 1:29 PM 017 1:29 (specimen) EST PM EST Yuan Webber MD POINT OF CARE TEST ORDERABLE S Performing Organization Address City/State/[place] [address] POCT Glucose (07/09/2017 12:20 PM EST) athologist Signature POC Glucose 172 65 - 199 [place] mg/dL [place] [...] Address City/State/ZIP Code Phon e Number [address] POCT Glucose (07/09/2017 11:24 AM EST) athologist Signature POC Glucose 156 65 - 199 [facility] mg/dL [facility] Comment: [...] Address City/State/ZIP Code Phon e Number [address] POCT Glucose (07/09/2017 11:11 AM EST) athologist Signature POC Glucose 172 65 - 199 [place] RY[place] mg/dL [place] [...] Address City/State/ZIP Code Phon e Number [address] POCT Glucose (07/09/2017 10:08 AM EST) athologist Signature POC Glucose 176 65 - 199 [place] mg/dL [place] [...] Organization Address City/State/[place] [address] POCT Glucose (07/09/2017 8:02 AM EST) P athologist Signature POC Glucose 178 65 - 199 [facility] mg/dL [facility] Comment: Supplemental ranges: <140 mg/dL before meals <180 mg/dL all other times of the day Specimen Anatomical Collection Method Collection Time Receive d Time (Source) Location / / Volume Laterality Blood specimen 07/09/2017 8:02 AM 017 8:02 (specimen) EST AM EST Yuan Webber MD POINT OF CARE TEST ORDERABLE S Performing Organization Address City/State/[place] [address] (ABNORMAL) BLOOD GAS 2 ARTERIAL (07/09/2017 5:37 AM EST) Analysis Performed At Patho logist Time Signature pH Art 7.36 7.35 - [facility] 7.45 [facility] pCO2 Art 38 35 - 45 [facility] mmHg [facility] pO2 Art 79 (L) 85 - 104 [facility] mmHg [facility] HCO3 Art 20.9 20.0 - [facility] 26.0 [facility] mmol/L [facility] BE Art -4.6 (L) -3.0 - 3.0 [facility] mmol/L [facility] Hgb Blood Gas 10.5 (L) 13.7 - [facility] 16.5 gm/dL [facility] O2HB Art 93.8 (L) 94.0 - [facility] 97.0 % [facility] COHB Art 0.3 % [...] [facility] FIO2 Art 40 % [facility] PF Ratio Art [address] [facility] Specimen Anatomical Collection Method Collection Time Receive d Time (Source) Location / / Volume Laterality Blood specimen 07/09/2017 5:37 AM 017 5:37 (specimen) EST AM EST Yuan Webber MD CHEMISTRY ORDERABLES Performing Organization Address City/State/[place] [address] POCT Glucose (07/09/2017 3:27 AM EST) P athologist Signature POC Glucose 192 65 - 199 [facility] mg/dL [facility] Comment: Supplemental ranges: <140 mg/dL before meals <180 mg/dL all other times of the day Specimen Anatomical Collection Method Collection Time Receive d Time (Source) Location / / Volume Laterality Blood specimen 07/09/2017 3:27 AM 017 3:27 (specimen) EST AM EST Yuan Webber MD POINT OF CARE TEST ORDERABLE S Performing Organization Address City/State/[place] [address] (ABNORMAL) Basic Metabolic Panel (non-fasting) (07/09/2017 2:30 AM EST) P athologist Signature Glucose Lvl 179 65 - 199 [facility] mg/dL [facility] Comment: Diabetes: [...] or in patients with acute kidney failure. [email or web address] Specimen Anatomical Collection Method Collection Time Receive d Time (Source) Location / / Volume Laterality Blood specimen Venous Draw / 07/09/2017 2:30 AM 2016 2:42 (specimen) Unknown EST AM EST Resulting Agency Comment Spec In Lab Yuan Webber MD CHEMISTRY ORDERABLES Performing Organization Address City/State/[place] [address] (ABNORMAL) Potassium (07/09/2017 2:30 AM EST) P athologist Signature Potassium 5.1 (H) 3.5 - 5.0 [place] mmol/L [facility] Comment: Please [...] [facility]/[place] [address] (ABNORMAL) Hemogram (07/09/2017 2:30 AM EST) Analysis Performed At Patho logist Time Signature WBC 12.5 (H) 4.0 - 9.5 [facility] RYAN x10(3)/[facility] LABORATORY RBC 3.38 (L) 4.58 - [place] RYAN 5.54 [facility] x10(6)/[facility] LABORATORY Hemoglobin 10.1 (L) 13.7 - [place] RYAN 16.5 gm/dL [facility] Hematocrit 30.3 (L) 40.5 - [place] RYAN 48.5 % [facility] MCV 89.6 82.9 - [place] RY[place] 93.1 [facility] LABORATORY MCH 29.9 27.5 - [place] RY[place] 32.1 pg [facility] MCHC 33.3 32.0 - [place] R[place] 35.7 gm/dL [facility] Platelets 127 (L) 145 - 357 [place] RYAN x10(3)/[facility] LABORATORY RDWSD 49.3 (H) 36.0 - [place] RYAN 45.0 [facility] LABORATORY RDWCV 15.2 (H) 11.4 - [place] R[place] 13.8 % [facility] MPV 9.9 7.6 - 12.9 [facility] LABORATORY nRBC % Auto 0.0 % [facility] nRBC Abs Auto 0.000 0.000 - [place] DAVIS 0.000 [facility] x10(3)/[facility] LABORATORY Specimen Anatomical Collection Method Collection Time Receive d Time (Source) Location / / Volume Laterality Blood specimen 07/09/2017 2:30 AM 017 2:41 (specimen) EST AM EST Resulting Agency Comment Spec In Lab Yuan Webber MD HEMATOLOGY ORDERABLES Performing Organization Address City/State/ZIP Code Phon e Number [address] POCT Glucose (07/09/2017 2:10 AM EST) athologist Signature POC Glucose 169 65 - 199 [facility] Comment: Supplemental [...] Address City/State/ZIP Code Phon e Number [address] POCT Glucose (07/09/2017 1:01 AM EST) athologist Signature POC Glucose 173 65 - 199 [facility] Comment: Supplemental [...] Address City/State/ZIP Code Phon e Number [address] Blood culture (07/09/2017 12:40 AM EST) [facility] Alaris Royalty Method Time Signature Blood Culture No growth BARBAR[place] DAVIS at 5 days. [facility] Specimen Anatomical Collection Method Collection Time Receive d Time (Source) Location / / Volume Laterality Blood specimen STRUCTURE OF RIGHT 07/09/2017 12:40 3:58 (specimen) UPPER LIMB / AM EST AM EST Unknown Resulting Agency Comment Spec In Lab Yuan Webber MD MICROBIOLOGY - BLOOD ORDERAB LES Performing Organization Address City/[facility]/ZIP Code Phon e Number [address] Blood culture (07/09/2017 12:30 AM EST) [facility] Alaris Royalty Method Time Signature Blood Culture No growth BARBARA DAVIS at 5 days. [facility] Specimen Anatomical Collection Method Collection Time Receive d Time (Source) Location / / Volume Laterality Blood specimen STRUCTURE OF LEFT 07/09/2017 12:30 06/25 3:59 (specimen) UPPER LIMB / AM EST AM EST Unknown Resulting Agency Comment Spec In Lab Yuan Webber MD MICROBIOLOGY - BLOOD ORDERAB LES Performing Organization Address City/[facility]/[place] [address] (ABNORMAL) Urinalysis Microscopic Exam (07/09/2017 12:05 AM EST) Analysis Performed At Patho logist Time Signature RBC UA 32 (H) 0 - 3 /HPF [facility] WBC UA 5 (H) 0 - 3 /HPF [facility] Squam Epith UA <1 <=4 /HPF [facility] Hyaline Cast 17 (H) 0 - 2 /LPF [facility] Gran Cast UA 1 (H) <=0 /LPF [facility] Uric Ac Bianca Rare (A) None /HPF [facility] Specimen (Source) Anatomical Collection Method Collection Time Re ceived Time Location / / Volume Laterality Urine specimen 07/09/2017 12:05 7 obtained via AM EST 12:39 AM EST indwelling urinary catheter (specimen) Resulting Agency Comment Spec In Lab Yuan Webber MD URINE ORDERABLES Performing Organization Address City/State/ZIP Code Phon e Number [address] (ABNORMAL) Urinalysis with reflex Culture (07/09/2017 12:05 AM EST) Patholo gist Method Time Signature Glucose UA Negative Negative [facility] Protein UA 30 (A) Negative [facility] mg/dL [facility] Bilirubin UA Negative Negative [facility] mg/dL [facility] Comment: Clinical correlation required [...] [facility] Nitrite UA Negative Negative [facility] Leukocytes UA Negative Negative [facility] LABORATORY Appearance UA Hazy (A) Clear [facility] Spec [place] UA 1.025 1.002 - 1.030 [facility] Color UA Yellow Yellow [facility] Culture Reflexed No [facility] Specimen (Source) Anatomical Collection Method Collection Time Re ceived Time Location / / Volume Laterality Urine specimen 07/09/2017 12:05 7 obtained via AM EST 12:39 AM EST indwelling urinary catheter (specimen) Resulting Agency Comment Spec In Lab Yuan Webber MD URINE ORDERABLES Performing Organization Address City/State/ZIP Code Phon e Number [place] [id number] [facility] [address]ORY Drive POCT Glucose (07/08/2017 11:01 PM EST) P athologist Signature POC Glucose 191 65 - 199 [facility] mg/dL [facility] Comment: Supplemental ranges: <140 mg/dL before meals <180 mg/dL all other times of the day Specimen Anatomical Collection Method Collection Time Receive d Time (Source) Location / / Volume Laterality Blood specimen 07/08/2017 11:01 7 (specimen) PM EST 11:01 PM EST Yuan Webber MD POINT OF CARE TEST ORDERABLE S Performing Organization Address City/State/[place] [address] POCT Glucose (07/08/2017 10:04 PM EST) P athologist Signature POC Glucose 198 65 - 199 [facility] mg/dL [facility] Comment: Supplemental ranges: <140 mg/dL before meals <180 mg/dL all other times of the day Specimen Anatomical Collection Method Collection Time Receive d Time (Source) Location / / Volume Laterality Blood specimen 07/08/2017 10:04 7 (specimen) PM EST 10:04 PM EST Yuan Webber MD POINT OF CARE TEST ORDERABLE S Performing Organization Address City/State/[place] [address] Prepare Albumin 5% in [...] Address City/State/ZIP Code Phon e Number [address] POCT Glucose (07/08/2017 8:28 PM EST) P athologist Signature POC Glucose 195 65 - 199 [facility] mg/dL [facility] Comment: Supplemental [...] [facility]/[place] [address] (ABNORMAL) POCT Glucose (07/08/2017 7:13 PM EST) P athologist Signature POC Glucose 220 (H) 65 - 199 [facility] mg/dL [facility] Comment: Supplemental [...] [facility]/[place] [address] POCT Glucose (07/08/2017 5:04 PM EST) P athologist Signature POC Glucose 147 65 - 199 [facility]/dL [facility] Comment: Supplemental ranges: <140 mg/dL before meals <180 mg/dL all other times of the day Specimen Anatomical Collection Method Collection Time Receive d Time (Source) Location / / Volume Laterality Blood specimen 07/08/2017 5:04 PM 017 5:04 (specimen) EST PM EST Yuan Webber MD POINT OF CARE TEST ORDERABLE S Performing Organization Address City/State/[place] [address] (ABNORMAL) BLOOD GAS 2 ARTERIAL (07/08/2017 4:13 PM EST) Analysis Performed At Patho logist Time Signature pH Art 7.38 7.35 - [facility] 7.45 [facility] pCO2 Art 36 35 - 45 [facility] LABORATORY pO2 Art 91 85 - 104 [facility]ORY HCO3 Art 20.9 20.0 - [facility] 26.0 [facility] mmol/L [facility] BE Art -4.2 (L) -3.0 - 3.0 [facility] mmol/L [facility] Hgb Blood Gas 11.7 (L) 13.7 - [facility] 16.5 gm/dL [facility] O2HB Art 95.1 94.0 - [facility] 97.0 % [facility] COHB Art 0.6 % [facility] FIO2 Art 40 % [facility] PF Ratio Art [address] [facility] Specimen Anatomical Collection Method Collection Time Receive d Time (Source) Location / / Volume Laterality Blood specimen 07/08/2017 4:13 PM 017 4:13 (specimen) EST PM EST Yuan Webber MD CHEMISTRY ORDERABLES Performing Organization Address City/State/[place] [address] POCT Glucose (07/08/2017 4:01 PM EST) athologist Signature POC Glucose 148 65 - 199 BARBAR[place] RYAN mg/dL [place] [...] Address City/State/ZIP Code Phon e Number [address] POCT Glucose (07/08/2017 3:21 PM EST) athologist Signature POC Glucose 118 65 - 199 [facility] mg/dL [facility] Comment: [...] Address City/State/ZIP Code Phon e Number [address] POCT Glucose (07/08/2017 2:01 PM EST) athologist Signature POC Glucose 129 65 - 199 [place] RYAN mg/dL [place] [...] Address City/State/ZIP Code Phon e Number [address] POCT Glucose (07/08/2017 11:53 AM EST) athologist Signature POC Glucose 156 65 - 199 [facility] mg/dL [facility] Comment: Supplemental ranges: <140 mg/dL before meals <180 mg/dL all other times of the day Specimen Anatomical Collection Method Collection Time Receive d Time (Source) Location / / Volume Laterality Blood specimen 07/08/2017 11:53 7 (specimen) AM EST 11:53 AM EST Yuan Webber MD POINT OF CARE TEST ORDERABLE S Performing Organization Address City/State/[place] [address] POCT Glucose (07/08/2017 11:04 AM EST) athologist Signature POC Glucose 181 65 - 199 [facility] mg/dL [facility] Comment: Supplemental [...] [facility]/[place] [address] (ABNORMAL) POCT Glucose (07/08/2017 9:24 AM EST) athologist Signature POC Glucose 203 (H) 65 - 199 [facility] mg/dL [facility] Comment: Supplemental ranges: <140 mg/dL before meals <180 mg/dL all other times of the day Specimen Anatomical Collection Method Collection Time Receive d Time (Source) Location / / Volume Laterality Blood specimen 07/08/2017 9:24 AM 017 9:24 (specimen) EST AM EST Yuan Webber MD POINT OF CARE TEST ORDERABLE S Performing Organization Address City/State/[place] [address] APTT (07/08/2017 8:40 AM EST) athologist Signature PTT 33 25 - 35 sec [facility] Comment: The recommended therapeutic range for fu ll dose, unfractionated heparin at [facility] is 80 ? 114 seconds. The use [...] [facility]/[place] [address] (ABNORMAL) Prothrombin Time (07/08/2017 [...] Organization Address City/State/[place] [address] (ABNORMAL) POCT Glucose (07/08/2017 7:38 AM EST) athologist Signature POC Glucose 232 (H) 65 - 199 [facility] mg/dL [facility] Comment: Supplemental ranges: <140 mg/dL before meals <180 mg/dL all other times of the day Specimen Anatomical Collection Method Collection Time Receive d Time (Source) Location / / Volume Laterality Blood specimen 07/08/2017 7:38 AM 017 7:38 (specimen) EST AM EST Yuan Webber MD POINT OF CARE TEST ORDERABLE S Performing Organization Address City/State/[place] [address] (ABNORMAL) POCT Glucose (07/08/2017 [...] Organization Address City/State/[place] [address] (ABNORMAL) POCT Glucose (07/08/2017 [...] Organization Address City/State/[place] [address] (ABNORMAL) POCT Glucose (07/08/2017 [...] Organization Address City/State/[place] [address] (ABNORMAL) POCT Glucose (07/08/2017 4:52 AM EST) P athologist Signature POC Glucose 257 (H) 65 - 199 [facility] mg/dL [facility] Comment: Supplemental [...] [facility]/[place] [address] (ABNORMAL) BLOOD GAS 2 ARTERIAL (07/08/2017 4:04 AM EST) Analysis Performed At Patho logist Time Signature pH Art 7.30 (L) 7.35 - [facility] 7.45 [facility] pCO2 Art 41 35 - 45 [facility] mmHg [facility] pO2 Art 83 (L) 85 - 104 [facility] mmHg [facility] HCO3 Art 19.6 (L) 20.0 - [facility] 26.0 [facility] mmol/L [facility] BE Art -6.8 (L) -3.0 - 3.0 [facility] mmol/L [facility] Hgb Blood Gas 12.2 (L) 13.7 - [facility] 16.5 gm/dL [facility] O2HB Art 93.5 (L) 94.0 - [facility] 97.0 % [facility] COHB Art 0.4 % [facility] Comment: Noted by plant and instrument engineer. FIO2 Art 40 % [facility] PF Ratio Art [address] [facility] Specimen Anatomical Collection Method Collection Time Receive d Time (Source) Location / / Volume Laterality Blood specimen 07/08/2017 4:04 AM 017 4:04 (specimen) EST AM EST Daphne Shahid MD CHEMISTRY ORDERABLES Performing Organization Address City/[facility]/[place] [address] Scan, Peripheral Blood (07/08/2017 [...] Health/[facility]/[place] [address] (ABNORMAL) Differential, Automated (07/08/2017 4:00 AM EST) [facility] Method Time Signature Neutrophils % 85.4 % [facility] Neutr Abs (ANC) 16.07 (H) 1.70 - [facility] 6.10 [facility] x10(3)/[facility] LABORATORY Lymphocytes % 3.5 % [facility] Lymphocytes Abs 0.6 (L) 0.9 - 3.2 [facility] x10(3)/[facility] LABORATORY Monocytes % 10.4 % [facility] Monocyte Abs 2.0 (H) 0.3 - 0.9 [facility] x10(3)/[facility] LABORATORY Eosinophils % 0.0 % [facility] Eosinophils Abs 0.0 0.0 - 0.4 [facility] x10(3)/[facility] LABORATORY Basophils % 0.1 % [facility] Basophils Abs 0.0 0.0 - 0.1 [facility] x10(3)/[facility] LABORATORY Immature Gran % 0.60 [...] Gran Abs 0.12 (H) 0.00 - 0.04 x10(3)/[facility] LABORATORY Specimen Anatomical Collection Method Collection Time Receive d Time (Source) Location / / Volume Laterality Blood specimen 07/08/2017 4:00 AM 017 4:09 (specimen) EST AM EST Resulting Agency Comment Spec In Lab Yuan Webber MD HEMATOLOGY ORDERABLES Performing Organization Address City/State/[place] [address] (ABNORMAL) Hemogram (07/08/2017 4:00 AM EST) Analysis Performed At Patho logist Time Signature WBC 18.8 (H) 4.0 - 9.5 [facility] x[facility](3[facility] LABORATORY RBC 4.00 (L) 4.58 - BARBARA ZHAORYAN 5.54 [facility] x10(6)/[facility] LABORATORY Hemoglobin 11.9 (L) 13.7 - [facility] 16.5 gm/dL [facility] Hematocrit 35.9 (L) 40.5 - [facility] 48.5 % [facility] LABORATORY MCV 89.8 82.9 - [facility] 93[facility]1 [facility] LABORATORY MCH 29.8 27.5 - [facility] 32.1 pg [facility] LABORATORY MCHC 33.1 32.0 - [facility] 35.7 gm/dL [facility] LABORATORY Platelets 232 145 - 357 [facility] x10(3)/[facility] LABORATORY RDWSD 47.6 (H) 36.0 - BARBAR[place] RYAN 45.0 [facility] LABORATORY RDWCV 14.5 (H) 11.4 - [facility] RYAN 13.8 % [facility] LABORATORY MPV 9.5 7.6 - 12.9 [facility] nRBC % Auto 0.0 % [facility] LABORATORY nRBC Abs Auto 0.000 0.000 - [place] RYAN 0.000 [facility] x10(3)/[facility] LABORATORY Specimen Anatomical Collection Method Collection Time Receive d Time (Source) Location / / Volume Laterality Blood specimen 07/08/2017 4:00 AM 017 4:09 (specimen) EST AM EST Resulting Agency Comment Spec In Lab Yuan Webber MD HEMATOLOGY ORDERABLES Performing Organization Address City/State/[place] [address] (ABNORMAL) Electrolytes panel (07/08/2017 4:00 AM EST) P athologist Signature Sodium 139 135 - 145 [facility] mmol/L [facility] LABORATORY Potassium 4.7 3.5 - 5.0 [facility] mmol/L [facility] LAB[facility]ORY Comment: result rechecked-JLK Please [...] Organization Address City/State/[place] [address] (ABNORMAL) Cardiac Enzymes (LEB/CGP) (07/08/2017 4:00 AM EST) P athologist Signature Troponin-T 1.88 (H) 0.00 - [facility] 0.00 ng/mL [facility] LABORATORY Comment: [...] additional sample may be indicated. Reference: Third [place] Definition of Myocardial Infarction. Journal of the [...] [facility]/ZIP Code Phon e Number [address] (ABNORMAL) Glucose, fasting (07/08/2017 4:00 AM EST) athologist Signature Glucose 287 (H) 65 - 99 [facility] Fasting mg/dL [facility] LABORATORY Comment: [...] Organization Address City/[facility]/ZIP [facility] [place] [address] (ABNORMAL) Creatinine (07/08/2017 4:00 AM EST) Analysis Performed At Patho logist Time Signature Creatinine 1.55 (H) 0.80 - [facility] 1.50 mg/dL [facility] LABORATORY Estimated GFR 44 (L) >=60 [facility] LABORATORY Comment: The reported eGFR should be multiplied b y 1.2 for patients. The MDRD is not an appropriate measure o f renal function for patients with body mass extremes or in patients with acute kidney failure. [email or web address]/DHnkdep [email or web address]/DHMCnkf Specimen Anatomical Collection Method Collection Time Receive d Time (Source) Location / / Volume Laterality Blood specimen 07/08/2017 4:00 AM 017 4:09 (specimen) EST AM EST Resulting Agency Comment Spec In Lab Yuan Webber MD CHEMISTRY ORDERABLES Performing Organization Address City/[facility]/ZIP [facility] [place] Phon e Number [address] BUN (07/08/2017 4:00 AM EST) P athologist Signature BUN 16 10 - 20 [facility] mg/dL [facility] LABORATORY Specimen Anatomical Collection Method Collection Time Receive d Time (Source) Location / / Volume Laterality Blood specimen 07/08/2017 4:00 AM 017 4:09 (specimen) EST AM EST Resulting Agency Comment Spec In Lab Yuan Webber MD CHEMISTRY ORDERABLES Performing Organization Address City/[facility]/ZIP [facility] [place] [address] (ABNORMAL) POCT Glucose (07/08/2017 3:00 AM EST) P athologist Signature POC Glucose 273 (H) 65 - 199 [facility] mg/dL [facility] LABORATORY Comment: Supplemental ranges: <140 mg/dL before meals <180 mg/dL all other times of the day Specimen Anatomical Collection Method Collection Time Receive d Time (Source) Location / / Volume Laterality Blood specimen 07/08/2017 3:00 AM 017 3:00 (specimen) EST AM EST Daphne Shahid MD POINT OF CARE TEST ORDERABLE S Performing Organization Address City/State/[place] [address] (ABNORMAL) POCT Glucose (07/08/2017 1:57 AM EST) athologist Signature POC Glucose 288 (H) 65 - 199 [facility] mg/dL [facility] LABOR[facility] Comment: Supplemental ranges: <140 mg/dL before meals <180 mg/dL all other times of the day Specimen Anatomical Collection Method Collection Time Receive d Time (Source) Location / / Volume Laterality Blood specimen 07/08/2017 1:57 AM 017 1:57 (specimen) EST AM EST Daphne Shahid MD POINT OF CARE TEST ORDERABLE S Performing Organization Address City/State/[place] [address] (ABNORMAL) POCT Glucose (07/08/2017 1:01 AM EST) athologist Signature POC Glucose 315 (H) 65 - 199 [facility] mg/dL [facility] LABORATORY Comment: Supplemental ranges: <140 mg/dL before meals <180 mg/dL all other times of the day Specimen Anatomical Collection Method Collection Time Receive d Time (Source) Location / / Volume Laterality Blood specimen 07/08/2017 1:01 AM 017 1:01 (specimen) EST AM EST Daphne Shahid MD POINT OF CARE TEST ORDERABLE S Performing Organization Address City/State/[place] [address] (ABNORMAL) BLOOD GAS 2 ARTERIAL (07/08/2017 12:09 AM EST) athologist Signature pH Art 7.26 7.35 - [facility] (Critical) 7.45 [facility] LABORATORY Comment: Noted by plant and instrument engineer. pCO2 Art 41 35 - 45 mmHg [...] [facility] Comment: Noted by plant and instrument engineer. FIO2 Art 40 % [facility] LABORATORY PF Ratio Art [address] [facility] LABORATORY Specimen Anatomical Collection Method Collection Time Receive d Time (Source) Location / / Volume Laterality Blood specimen Arterial Draw / 07/08/2017 12:09 2016 5:31 (specimen) Unknown AM EST AM EST Resulting Agency Comment Spec In Lab Samy Maldonado MD CHEMISTRY ORDERABLES Performing Organization Address City/State/[place] [address] (ABNORMAL) POCT Glucose (07/07/2017 10:56 PM EST) athologist Signature POC Glucose 292 (H) 65 - 199 [facility] mg/dL [facility] LABORATORY Comment: Supplemental ranges: <140 mg/dL before meals <180 mg/dL all other times of the day Specimen Anatomical Collection Method Collection Time Receive d Time (Source) Location / / Volume Laterality Blood specimen 07/07/2017 10:56 7 (specimen) PM EST 10:56 PM EST Daphne Shahid MD POINT OF CARE TEST ORDERABLE S Performing Organization Address City/State/[place] [address] (ABNORMAL) BLOOD GAS 2 ARTERIAL (07/07/2017 10:04 PM EST) athologist Signature pH Art 7.22 7.35 - [facility] (Critical) 7.45 [facility] LABORATORY Comment: Noted by plant and instrument engineer. pCO2 Art 42 35 - 45 mmHg [...] [facility] Comment: Noted by plant and instrument engineer. FIO2 Art 40 % [facility] LABORATORY PF Ratio Art [address] [facility] LABORATORY Specimen Anatomical Collection Method Collection Time Receive d Time (Source) Location / / Volume Laterality Blood specimen 07/07/2017 10:04 7 (specimen) PM EST 10:04 PM EST Daphne Shahid MD CHEMISTRY ORDERABLES Performing Organization Address City/State/ZIP Code Phon e Number [address] (ABNORMAL) Hemoglobin (07/07/2017 10:00 PM EST) P athologist Signature Hemoglobin 12.8 (L) 13.7 - [facility] 16.5 gm/dL [facility] LABORATORY Specimen Anatomical Collection Method Collection Time Receive d Time (Source) Location / / Volume Laterality Blood specimen 07/07/2017 10:00 7 (specimen) PM EST 10:13 PM EST Resulting Agency Comment Spec In Lab Yuan Webber MD HEMATOLOGY ORDERABLES Performing Organization Address City/State/ZIP Code Phon e Number [address] (ABNORMAL) Potassium (07/07/2017 10:00 PM EST) P athologist Signature Potassium 3.4 (L) 3.5 - 5.0 [facility] mmol/L [facility] LABORATORY Comment: Please [...] [facility]/[place] [address] (ABNORMAL) POCT Glucose (07/07/2017 8:49 PM EST) athologist Signature POC Glucose 241 (H) 65 - 199 [facility] mg/dL [facility] LABORATORY Comment: Supplemental [...] Health/[facility]/[place] [address] Prepare Albumin 5% in 250 mL (07/07/2017 8:03 PM EST) athologist Signature Dispensed? Yes [facility] LABORATORY Specimen Anatomical Collection Method Collection Time Receive d Time (Source) Location / / Volume Laterality Blood specimen No Charge / 07/07/2017 8:03 PM 017 8:04 (specimen) Unknown EST PM EST Resulting Agency Comment Spec In Lab Michael BROWN BLOOD BANK ORDERABLES Performing Organization Address City/[facility]/[place] [address] EKG 12 Lead (07/07/2017 7:17 PM EST) Component Value Ref Range Test Analysis Performed Pathologis t Method Time At Signature Ventricular rate 75 BPM MUSE SYSTEM Atrial Rate 75 BPM MUSE SYSTEM P-R Interval 168 ms MUSE SYSTEM QRS Duration 104 ms MUSE SYSTEM Q-T Interval 462 ms MUSE SYSTEM QTC Calculated 515 ms MUSE SYSTEM (Bezet) Calculated P [place] 52 degrees MUSE SYSTEM Calculated R [place] -40 degrees MUSE SYSTEM Calculated T [place] 39 degrees MUSE SYSTEM INTERPRETATION Normal sinus [...] pH Art 7.21 7.35 - [facility] (Critical) 7.45 [facility] LABORATORY Comment: Noted by plant and instrument engineer. pCO2 Art 50 (H) 35 - 45 [...] [facility] LABORATORY Comment: Noted by plant and instrument engineer. Please note: Patients with WBC >100,000 may [...] [facility] Comment: Noted by plant and instrument engineer. FIO2 Art 100 % [facility] LABORATORY PF Ratio Art [address] [facility] LABORATORY Specimen Anatomical Collection Method Collection Time Receive d Time (Source) Location / / Volume Laterality Blood specimen 07/07/2017 6:57 PM 017 6:57 (specimen) EST PM EST Daphne Shahid MD CHEMISTRY ORDERABLES Performing Organization Address City/State/[place] [address] (ABNORMAL) BLOOD GAS 2 ARTERIAL (07/07/2017 5:31 PM EST) P athologist Signature pH Art 7.29 7.35 - [facility] (Critical) 7.45 [facility] LABORATORY Comment: Noted by plant and instrument engineer. pCO2 Art 48 (H) 35 - 45 [...] Organization Address City/State/[place] [address] Fibrinogen (07/07/2017 5:30 PM EST) P athologist Signature Fibrinogen 224 180 - 510 [facility] mg/dL [facility] LABORATORY Comment: Called by: JEET, [...] Perez MD HEMATOLOGY ORDERABLES Performing Organization Address [facility] Phon e Number [address] APTT (07/07/2017 5:30 PM EST) P athologist Signature PTT 30 25 - 35 sec [facility] LABORATORY Comment: The recommended therapeutic range for fu ll dose, unfractionated heparin at [facility] is 80 ? 114 seconds. The use [...] Perez MD HEMATOLOGY ORDERABLES Performing Organization Address [facility] [place] [address] (ABNORMAL) Prothrombin Time (07/07/2017 [...] Perez MD HEMATOLOGY ORDERABLES Performing Organization Address [facility]/[place] [address] (ABNORMAL) Hemogram (07/07/2017 5:30 PM EST) athologist Signature WBC 19.6 (H) 4.0 - 9.5 [facility] x10(3)/[facility] LABORATORY RBC 3.08 (L) 4.58 - [facility] 5.54 [facility] x10(6)/[facility] LABORATORY Hemoglobin 9.2 (L) 13.7 - [facility] 16.5 gm/dL [facility] Hematocrit 28.0 (L) 40.5 - [facility] 48.5 % [facility] LABORATORY Comment: This result has been called to MONICA WEINSTEIN LUISA by DONALD GROSSMAN on 07 07 2017 at 1759, and has been read back. MCV 90.9 82.9 - 93.1 [facility] LABORATORY MCH 29.9 27.5 - 32.1 pg [facility] LABORATORY MCHC 32.9 32.0 - 35.7 gm/dL [facility] LABORATORY Platelets 155 145 - 357 x10(3)/[facility] LABORATORY RDWSD 46.5 (H) 36.0 [...] Organization Address City/State/[place] [address] Prepare Platelets, Apheresis (07/07/2017 5:00 PM EST) P athologist Signature Dispensed? Yes [facility] LABORATORY Specimen Anatomical Collection Method Collection Time Receive d Time (Source) Location / / Volume Laterality Blood specimen 07/07/2017 5:00 PM 017 4:58 (specimen) EST PM EST Daphne Shahid MD BLOOD BANK ORDERABLES Performing Organization Address City/State/[place] [address] Platelet count (07/07/2017 4:55 PM EST) athologist Signature Platelets 177 145 - 357 [facility] x10(3)/[facility] LABORATORY Plat Immature 1.5 0.0 - 7.4 [facility] % % [facility] LABORATORY Comment: Limitation of the Immature Platelet Frac tion (IPF)-May be less reliable when the platelet count is less than 38t730/u L due to statistical imprecision. The IPF [...] in a decreased state of production. References: [employer] The Clinical Value of the Immature Platelet Fraction (IPF) in Cell Recovery Document Number 10-1143 12/2010 [employer] The Role of the Imm [...] Health/[facility]/[place] [address] (ABNORMAL) Hemoglobin and Hematocrit, blood (07/07/2017 4:55 PM EST) P athologist Signature Hemoglobin 9.1 (L) 13.7 - 16.5 [facility] gm/dL [facility] LABOR[facility] Comment: This result has [...] Health/[facility]/[place] [address] (ABNORMAL) BLOOD GAS 2 ARTERIAL (07/07/2017 4:38 PM EST) Analysis Performed At Patho logist Time Signature pH Art 7.37 7.35 - [facility] 7.45 [facility] LABORATORY pCO2 Art 44 35 - 45 [facility] mmHg [facility] LABORATORY pO2 Art 322 (H) 85 - 104 [facility] mmHg [facility] LABORATORY HCO3 Art 24.9 20.0 - [facility] 26.0 [facility] mmol/L [facility] LABORATORY BE Art -0.4 -3.0 - 3.0 [facility] mmol/L [facility] LABORATORY Hgb Blood Gas 10.1 (L) 13.7 - [facility] 16.5 gm/dL [facility] LABORATORY O2HB Art 98.7 (H) 94.0 - [facility] 97.0 % [facility] LABORATORY COHB Art 0.1 % [facility] Comment: Noted by plant and instrument engineer. Note: ??Total bilirubin higher than 20 m [...] Organization Address City/State/[place] [address] (ABNORMAL) BLOOD GAS 2 VENOUS (07/07/2017 4:06 PM EST) Analysis Performed At Patho logist Time Signature pH Cody 7.31 (L) 7.32 - [facility] 7.42 [facility] LABORATORY pCO2 Cody 47 41 - 51 [facility] LABORATORY pO2 Cody 53 (H) 25 - 40 [facility] LABORATORY HCO3 Cody 22.7 mmol/L [facility] LABORAT[facility] BE Cody -3.7 mmol/L [facility] LABORATORY Hgb Blood Gas 10.2 (L) 13.7 - [facility] 16.5 gm/dL [facility] LABORATORY O2HB Cody 81.0 % [facility] [...] [facility] Comment: Noted by plant and instrument engineer. Note: ??Total bilirubin higher than 20 m [...] Organization Address City/State/[place] [address] (ABNORMAL) BLOOD GAS 2 ARTERIAL (07/07/2017 4:05 PM EST) Analysis Performed At Patho logist Time Signature pH Art 7.36 7.35 - [facility] 7.45 [facility] LABORATORY pCO2 Art 40 35 - 45 [facility] LABORATORY pO2 Art 282 (H) 85 - 104 [facility] LABORATORY HCO3 Art 22.1 20.0 - [facility] 26.0 [facility] mmol/L [facility] LABORATORY BE Art -3.4 (L) -3.0 - 3.0 [facility] mmol/L [facility] LABORATORY Hgb Blood Gas 10.2 (L) 13.7 - [facility] 16.5 gm/dL [facility] LABOR[facility] O2HB Art 98.4 (H) 94.0 - [facility] 97.0 % [facility] LABORATORY COHB Art 0.3 % [...] [facility] Comment: Noted by plant and instrument engineer. Note: ??Total bilirubin higher than 20 m [...] Organization Address City/State/[place] [address] (ABNORMAL) BLOOD GAS 2 ARTERIAL (07/07/2017 2:29 PM EST) Analysis Performed At Patho logist Time Signature pH Art 7.43 7.35 - [facility] 7.45 [facility] LABORATORY pCO2 Art 36 35 - 45 [facility] LABORATORY pO2 Art 221 (H) 85 - 104 [facility] LABORATORY HCO3 Art 23.2 20.0 - [facility] 26.0 [facility] mmol/L [facility] LABORATORY BE Art -1.2 -3.0 - 3.0 [facility] mmol/L [facility] LABORATORY Hgb Blood Gas 13.9 13.7 - [facility] 16.5 gm/dL [facility] O2HB Art 97.8 (H) 94.0 - [facility] 97.0 % [facility] LABORAT[facility] COHB Art 1.1 % NOR[facility] [...] Organization Address City/State/[place] [address] Prepare Coag Factors (Non-Hemophilia) (07/07/2017 1:25 PM EST) P athologist Signature Dispensed? Yes [facility] LABOR[facility]ORY Specimen Anatomical Collection Method Collection Time Receive d Time (Source) Location / / Volume Laterality Blood specimen 07/07/2017 1:25 PM 017 1:21 (specimen) EST PM EST Daphne Shahid MD BLOOD BANK ORDERABLES Performing Organization Address City/State/ZIP Code Phon e Number [address] Prepare RBC (07/07/2017 1:10 PM EST) athologist Signature Dispensed? Yes [facility] Specimen Anatomical Collection Method Collection Time Receive d Time (Source) Location / / Volume Laterality Blood specimen 07/07/2017 1:10 PM 017 1:05 (specimen) EST PM EST Daphne Shahid MD BLOOD BANK ORDERABLES Performing Organization Address City/State/[place] [address] POCT Glucose (07/07/2017 11:56 AM EST) athologist Signature POC Glucose 188 65 - 199 [facility] RYAN mg/dL [facility] LABORATORY Comment: [...] Organization Address City/State/[place] [address] POCT Glucose (07/07/2017 11:05 AM EST) athologist Signature POC Glucose 168 65 - 199 [facility] mg/dL [facility] Comment: Supplemental ranges: <140 mg/dL before meals <180 mg/dL all other times of the day Specimen Anatomical Collection Method Collection Time Receive d Time (Source) Location / / Volume Laterality Blood specimen 07/07/2017 11:05 7 (specimen) AM EST 11:05 AM EST Daphne Shahid MD POINT OF CARE TEST ORDERABLE S Performing Organization Address City/State/[place] [address] POCT Glucose (07/07/2017 10:02 AM EST) P athologist Signature POC Glucose 191 65 - 199 [facility] mg/dL [facility] [...] Organization Address City/State/[place] [address] POCT Glucose (07/07/2017 7:53 AM EST) athologist Signature POC Glucose 178 65 - 199 [facility] mg/dL [facility] [...] Address City/State/ZIP Code Phon e Number [address] POCT Glucose (07/07/2017 7:03 AM EST) athologist Signature POC Glucose 188 65 - 199 [facility] mg/dL [facility] [...] Organization Address City/State/[place] [address] (ABNORMAL) POCT Glucose (07/07/2017 6:17 AM EST) athologist Signature POC Glucose 207 (H) 65 - 199 [facility] mg/dL [facility] Comment: Supplemental [...] [facility]/ZIP Code Phon e Number [address] Differential, Automated (07/07/2017 5:15 AM EST) athologist Signature Neutrophils % 69.7 % [facility] LABORATORY Neutr Abs (ANC) 5.32 1.70 - [facility] 6.10 [facility] x10(3)/[facility] LABORATORY Lymphocytes % 16.3 % [facility] LABORATORY Lymphocytes Abs 1.2 0.9 - 3.2 [facility] x10(3)/[facility] LABORATORY Monocytes % 10.5 % [facility] Monocyte Abs 0.8 0.3 - 0.9 [facility] x10(3)/[facility] LABORATORY Eosinophils % 2.5 % [facility] Eosinophils Abs 0.2 0.0 - 0.4 [facility] x10(3)/[facility] LABORATORY Basophils % 0.7 % [facility] Basophils Abs 0.0 0.0 - 0.1 [facility] x10(3)/[facility] LABORATORY Immature Gran % 0.30 % NOR[facility] [...] Melisa Gran Abs 0.02 0.00 - 0.04 x10(3)/[facility] LABORATORY Specimen Anatomical Collection Method Collection Time Receive d Time (Source) Location / / Volume Laterality Blood specimen 07/07/2017 5:15 AM 017 5:34 (specimen) EST AM EST Resulting Agency Comment Spec In Lab Daphne Shahid MD HEMATOLOGY ORDERABLES Performing Organization Address City/State/[place] [address] HOSPITAL [address] Drive (ABNORMAL) Hemogram (07/07/2017 5:15 AM EST) Analysis Performed At Patho logist Time Signature WBC 7.6 4.0 - 9.5 [facility] x10(3)/[facility] LABORATORY RBC 4.82 4.58 - [facility] 5.54 [facility] x10(6)/[facility] Hemoglobin 14.4 13.7 - [facility] 16.5 gm/dL [facility] LABORATORY Hematocrit 42.1 40.5 - [facility] 48.5 % [facility] LABORATORY MCV 87.3 82.9 - [facility] 93.1 [facility] LABORATORY MCH 29.9 27.5 - [facility] RYAN 32.1 pg [facility] LABORATORY MCHC 34.2 32.0 - [facility] 35.7 gm/dL [facility] LABORATORY Platelets 188 145 - 357 [facility] x10(3)/[facility] LABORATORY RDWSD 45.1 (H) 36.0 - [facility] 45.0 [facility] LABORATORY RDWCV 14.3 (H) 11.4 - [facility] 13.8 % [facility] LABORATORY MPV 9.4 7.6 - 12.9 [facility] LABORATORY nRBC % Auto 0.0 % [facility] LABORATORY nRBC Abs Auto 0.000 0.000 - [facility] 0.000 [facility] x10(3)/[facility] LABORATORY Specimen Anatomical Collection Method Collection Time Receive d Time (Source) Location / / Volume Laterality Blood specimen 07/07/2017 5:15 AM 017 5:34 (specimen) EST AM EST Resulting Agency Comment Spec In Lab Daphne Shahid MD HEMATOLOGY ORDERABLES Performing Organization Address City/[facility]/[place] [address] (ABNORMAL) APTT (07/07/2017 5:15 AM EST) P athologist Signature PTT 69 (H) 25 - 35 sec [facility] LABORATORY Comment: The recommended therapeutic range for fu ll dose, unfractionated heparin at [facility] is 80 ? 114 seconds. The use [...] [facility]/[place] [address] Magnesium (07/07/2017 5:15 AM EST) athologist Signature Magnesium 0.94 0.69 - 1.07 [facility] mmol/L [facility] LABORATORY Specimen Anatomical Collection Method Collection Time Receive d Time (Source) Location / / Volume Laterality Blood specimen 07/07/2017 5:15 AM 017 5:34 (specimen) EST AM EST Resulting Agency Comment Spec In Lab Daphne Shahid MD CHEMISTRY ORDERABLES Performing Organization Address City/[facility]/[place] [address] (ABNORMAL) Basic Metabolic Panel (non-fasting) (07/07/2017 5:15 AM EST) athologist Signature Glucose Lvl 203 (H) 65 - 199 [facility] mg/dL [facility] LABORATORY Comment: Diabetes: [...] [facility] LABORATORY Estimated GFR >60 >=60 [facility] LABORATORY Comment: The reported eGFR should be multiplied b y 1.2 for patients. The MDRD is not an appropriate measure o f renal function for patients with body mass extremes or in patients with acute kidney failure. [email or web address] Specimen Anatomical Collection Method Collection Time Receive d Time (Source) Location / / Volume Laterality Blood specimen 07/07/2017 5:15 AM 017 5:34 (specimen) EST AM EST Resulting Agency Comment Spec In Lab Daphne Shahid MD CHEMISTRY ORDERABLES Performing Organization Address City/State/[place] [address] (ABNORMAL) Cardiac Enzymes (LEB/CGP) (07/07/2017 5:15 AM EST) athologist Signature Troponin-T 2.07 (H) 0.00 - [facility] 0.00 ng/mL [facility] LABORATORY Comment: [...] additional sample may be indicated. Reference: Third [place] Definition of Myocardial Infarction. Journal of the [...] Organization Address City/State/[place] [address] POCT Glucose (07/07/2017 5:01 AM EST) P athologist Signature POC Glucose 182 65 - 199 [facility] mg/dL [facility] LABORATORY Comment: Supplemental [...] Address City/State/ZIP Code Phon e Number [address] POCT Glucose (07/07/2017 4:08 AM EST) P athologist Signature POC Glucose 199 65 - 199 [facility] R[facility]AN mg/dL [facility] LABORATORY Comment: [...] [facility]/ZIP Code Phon e Number [address] POCT Glucose (07/07/2017 3:03 AM EST) athologist Signature POC Glucose 188 65 - 199 [facility] mg/dL [facility] [...] Organization Address City/State/[place] [address] (ABNORMAL) POCT Glucose (07/07/2017 2:08 AM EST) athologist Signature POC Glucose 200 (H) 65 - 199 [facility] mg/dL [facility] LABORATORY Comment: [...] Organization Address City/State/[place] [address] (ABNORMAL) POCT Glucose (07/07/2017 1:31 AM EST) P athologist Signature POC Glucose 209 (H) 65 - 199 [facility] mg/dL [facility] LABORATORY Comment: Supplemental ranges: <140 mg/dL before meals <180 mg/dL all other times of the day Specimen Anatomical Collection Method Collection Time Receive d Time (Source) Location / / Volume Laterality Blood specimen 07/07/2017 1:31 AM 017 1:31 (specimen) EST AM EST Daphne Shahid MD POINT OF CARE TEST ORDERABLE S Performing Organization Address City/State/[place] [address] XR Chest PA or [...] 161 65 - 199 [facility] mg/dL [facility] LABORATORY Comment: Supplemental [...] Health/[facility]/ZIP Code Phon e Number [address] (ABNORMAL) APTT (07/07/2017 12:00 AM EST) athologist [facility] PTT 103 (H) 25 - 35 sec [facility] LABORATORY Comment: The recommended therapeutic range for fu ll dose, unfractionated heparin at [facility] is 80 ? 114 seconds. The use [...] Organization Address City/State/[place] [address] POCT Glucose (07/06/2017 9:55 PM EST) athologist Signature POC Glucose 109 65 - 199 [facility] mg/dL [facility] LABORATORY Comment: Supplemental [...] Address City/State/ZIP Code Phon e Number [address] POCT Glucose (07/06/2017 9:04 PM EST) athologist Signature POC Glucose 120 65 - 199 [place] mg/dL [facility] [...] Organization Address City/State/[place] [address] POCT Glucose (07/06/2017 7:45 PM EST) athologist Signature POC Glucose 158 65 - 199 [facility] mg/dL [facility] LABORATORY Comment: Supplemental [...] [facility]/[place] [address] Potassium (07/06/2017 7:40 PM EST) athologist Signature Potassium 3.9 3.5 - 5.0 [facility] mmol/L [facility] LABORATORY Comment: Please [...] Organization Address City/State/[place] [address] (ABNORMAL) Cardiac Enzymes (LEB/CGP) (07/06/2017 7:40 PM EST) athologist Signature Troponin-T 2.27 (H) 0.00 - [facility] 0.00 ng/mL [facility] LABORATORY Comment: [...] additional sample may be indicated. Reference: Third [place] Definition of Myocardial Infarction. Journal of the [...] Organization Address City/State/[place] [address] (ABNORMAL) POCT Glucose (07/06/2017 7:13 PM EST) P athologist Signature POC Glucose 200 (H) 65 - 199 [facility] mg/dL [facility] LABORATORY Comment: Supplemental [...] Address City/State/ZIP Code Phon e Number [address] (ABNORMAL) APTT (07/06/2017 6:15 PM EST) athologist [facility] PTT 94 (H) 25 - 35 sec [facility] LABORATORY Comment: The recommended therapeutic range for fu ll dose, unfractionated heparin at [facility] is 80 ? 114 seconds. The use [...] Organization Address City/State/[place] [address] (ABNORMAL) POCT Glucose (07/06/2017 6:03 PM EST) athologist Signature POC Glucose 236 (H) 65 - 199 [facility] mg/dL [facility] LABORATORY Comment: Supplemental ranges: <140 mg/dL before meals <180 mg/dL all other times of the day Specimen Anatomical Collection Method Collection Time Receive d Time (Source) Location / / Volume Laterality Blood specimen 07/06/2017 6:03 PM 017 6:03 (specimen) EST PM EST Daphne Shahid MD POINT OF CARE TEST ORDERABLE S Performing Organization Address City/State/[place] [address] (ABNORMAL) POCT Glucose (07/06/2017 [...] [facility]/[place] [address] (ABNORMAL) POCT Glucose (07/06/2017 [...] Organization Address City/State/[place] [address] POCT Glucose (07/06/2017 2:59 PM EST) P athologist Signature POC Glucose 178 65 - 199 [facility] mg/dL [facility] [...] [facility]/[place] [address] (ABNORMAL) Cardiac Enzymes (LEB/CGP) (07/06/2017 2:10 PM EST) P athologist Signature Troponin-T 2.34 (H) 0.00 - [facility] 0.00 ng/mL [facility] LABORATORY Comment: [...] additional sample may be indicated. Reference: Third [place] Definition of Myocardial Infarction. Journal of the [...] Health/[facility]/[place] [address] POCT Glucose (07/06/2017 2:08 PM EST) P athologist Signature POC Glucose 192 65 - 199 [facility] mg/dL [facility] [...] Address City/State/ZIP Code Phon e Number [address] POCT Glucose (07/06/2017 1:04 PM EST) athologist Signature POC Glucose 162 65 - 199 [facility] mg/dL [facility] LABORATORY Comment: Supplemental [...] Address City/State/ZIP Code Phon e Number [address] POCT Glucose (07/06/2017 12:05 PM EST) athologist Signature POC Glucose 196 65 - 199 [facility] mg/dL [facility] LABORATORY Comment: Supplemental [...] Address City/State/ZIP Code Phon e Number [address] EKG 12 Lead (07/06/2017 12:00 PM EST) Component Value Ref Range Test Analysis Performed Pathologis t Method Time At Signature Ventricular rate 91 BPM MUSE SYSTEM Atrial Rate 91 BPM MUSE SYSTEM P-R Interval 140 ms MUSE SYSTEM QRS Duration 94 ms MUSE SYSTEM Q-T Interval 394 ms MUSE SYSTEM QTC Calculated 484 ms MUSE SYSTEM (Bezet) Calculated P [place] 36 degrees MUSE SYSTEM Calculated R [place] -19 degrees MUSE SYSTEM Calculated T [place] 104 degrees MUSE SYSTEM INTERPRETATION Normal sinus rhythm MUSE SYSTEM 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) ST & T wave abnormality, consider lateral ischemia Abnormal ECG When compared with ECG of 05-JUL-2017 20:39, No significant change was found Confirmed by MD Luci, Taurus Braun ([id number]) on 07/06/2017 5:07:33 PM Specimen Anatomical Collection Method Collection Time Receive d Time (Source) Location / / Volume Laterality 07/06/2017 12:00 07/06/2017 5:07 PM EST PM EST Daphne Shahid MD ECG ORDERABLES Performing Organization Address City/[facility]/ZIP Code Phon e Number MUSE SYSTEM ABORH Recheck Status (07/06/2017 12:00 PM EST) [facility] Method Time Signature ABORH Type Completed [facility] LABORATORY Specimen Anatomical Collection Method Collection Time Receive d Time (Source) Location / / Volume Laterality Blood specimen 07/06/2017 12:00 7 (specimen) PM EST 12:24 PM EST Resulting Agency Comment Spec In Lab Daphne Shahid MD BLOOD BANK ORDERABLES Performing Organization Address City/[facility]/[place] [address] Antibody screen (07/06/2017 12:00 PM EST) [facility] Alaris Royalty Method Time Signature Ab Screen Negative [facility] LABORATORY Expires at 07/09/2017 [facility] 8510 on: [facility] LABORATORY Specimen Anatomical Collection Method Collection Time Receive d Time (Source) Location / / Volume Laterality Blood specimen 07/06/2017 12:00 7 (specimen) PM EST 12:24 PM EST Resulting Agency Comment Spec In Lab Daphne Shahid MD BLOOD BANK ORDERABLES Performing Organization Address City/[facility]/ZIP Code Phon e Number [address] ABO/Rh Typing (07/06/2017 12:00 [...] Organization Address City/State/[place] [address] Prothrombin Time (07/06/2017 11:24 [...] Health/[facility]/ZIP Code Phon e Number [place] [id number] [address] (ABNORMAL) APTT (07/06/2017 11:24 AM EST) P athologist Signature PTT 52 (H) 25 - 35 sec [facility] LABORATORY Comment: The recommended therapeutic range for fu ll dose, unfractionated heparin at [facility] is 80 ? 114 seconds. The use [...] Address City/State/ZIP Code Phon e Number [address] POCT Glucose (07/06/2017 11:02 AM EST) athologist Signature POC Glucose 187 65 - 199 [facility] mg/dL [facility] [...] Organization Address City/State/[place] [address] POCT Glucose (07/06/2017 10:18 AM EST) athologist Signature POC Glucose 193 65 - 199 [facility] mg/dL [facility] [...] Organization Address City/State/[place] [address] POCT Glucose (07/06/2017 9:25 AM EST) athologist Signature POC Glucose 182 65 - 199 [facility] mg/dL [facility] [...] [facility]/[place] [address] (ABNORMAL) Cardiac Enzymes (LEB/CGP) (07/06/2017 8:10 AM EST) athologist Signature Troponin-T 2.26 (H) 0.00 - [facility] 0.00 ng/mL [facility] LABORATORY Comment: [...] additional sample may be indicated. Reference: Third [place] Definition of Myocardial Infarction. Journal of the [...] Address City/State/ZIP Code Phon e Number [place] Magnesium (07/06/2017 8:10 AM EST) athologist Signature Magnesium 0.84 0.69 - 1.07 [facility] mmol/L [facility] LABORATORY Specimen Anatomical Collection Method Collection Time Receive d Time (Source) Location / / Volume Laterality Blood specimen 07/06/2017 8:10 AM 017 8:21 (specimen) EST AM EST Resulting Agency Comment Spec In Lab Daphne Shahid MD CHEMISTRY ORDERABLES Performing Organization Address City/State/ZIP Code Phon e Number [address] (ABNORMAL) Basic Metabolic Panel (non-fasting) (07/06/2017 8:10 AM EST) athologist Signature Glucose Lvl 199 65 - 199 [facility] mg/dL [facility] LABORATORY Comment: Diabetes: [...] [facility] LABORATORY Estimated GFR >60 >=60 [facility] LABORATORY Comment: The reported eGFR should be multiplied b y 1.2 for patients. The MDRD is not an appropriate measure o f renal function for patients with body mass extremes or in patients with acute kidney failure. [email or web address] Specimen Anatomical Collection Method Collection Time Receive d Time (Source) Location / / Volume Laterality Blood specimen 07/06/2017 8:10 AM 017 8:21 (specimen) EST AM EST Resulting Agency Comment Spec In Lab Daphne Shahid MD CHEMISTRY ORDERABLES Performing Organization Address City/[facility]/ZIP Code Phon e Number [address] POCT Glucose (07/06/2017 7:34 AM EST) athologist Signature POC Glucose 198 65 - 199 [facility]/dL [facility] LABORATORY Comment: Supplemental [...] [facility]/ZIP Code Phon e Number [address] POCT Glucose (07/06/2017 7:03 AM EST) athologist Signature POC Glucose 181 65 - 199 [facility] mg/dL [facility] LABORATORY Comment: Supplemental [...] [facility]/ZIP Code Phon e Number [address] XR Chest PA or [...] Glucose 172 65 - 199 [facility] mg/dL [facility] LABORATORY Comment: Supplemental [...] Address City/State/ZIP Code Phon e Number [address] POCT Glucose (07/06/2017 5:08 AM EST) athologist Signature POC Glucose 154 65 - 199 [facility] mg/dL [facility] [...] Address City/State/ZIP Code Phon e Number [address] POCT Glucose (07/06/2017 4:05 AM EST) athologist Signature POC Glucose 142 65 - 199 [facility] mg/dL [facility] [...] Organization Address City/State/[place] [address] POCT Glucose (07/06/2017 3:00 AM EST) athologist Signature POC Glucose 116 65 - 199 [facility] mg/dL [facility] LABORATORY Comment: [...] [facility]/[place] [address] [facility] [address] Potassium (07/06/2017 2:20 AM EST) athologist Signature Potassium 3.9 3.5 - 5.0 [facility] mmol/L [facility] LABORATORY Comment: Please [...] [facility]/ZIP Code Phon e Number [address] Differential, Automated (07/06/2017 2:20 AM EST) athologist Signature Neutrophils % 72.9 % [facility] LABORATORY Neutr Abs (ANC) 5.53 1.70 - [facility] 6.10 [facility] x10(3)/[facility] LABORATORY Lymphocytes % 16.4 % [facility] LABORATORY Lymphocytes Abs 1.2 0.9 - 3.2 [facility] x10(3)/[facility] LABORATORY Monocytes % 9.4 % [facility] LABORATORY Monocyte Abs 0.7 0.3 - 0.9 [facility] x10(3)/[facility] LABORATORY Eosinophils % 0.5 % [facility] LABORATORY Eosinophils Abs 0.0 0.0 - 0.4 [facility] x10(3)/[facility] LABORATORY Basophils % 0.4 % [facility] LABORATORY Basophils Abs 0.0 0.0 - 0.1 [facility] x10(3)/[facility] LABORATORY Immature Gran % 0.40 % [facility] [...] Melisa Gran Abs 0.03 0.00 - 0.04 x10(3)/[facility] LABORATORY Specimen Anatomical Collection Method Collection Time Receive d Time (Source) Location / / Volume Laterality Blood specimen 07/06/2017 2:20 AM 017 2:33 (specimen) EST AM EST Resulting Agency Comment Spec In Lab Daphne Shahid MD HEMATOLOGY ORDERABLES Performing Organization Address City/State/[place] [address] (ABNORMAL) Hemogram (07/06/2017 2:20 AM EST) Analysis Performed At Patho logist Time Signature WBC 7.6 4.0 - 9.5 [facility] x10(3)/[facility] LABORATORY RBC 4.52 (L) 4.58 - [facility] 5.54 [facility] x10(6)/[facility] LABORATORY Hemoglobin 13.4 (L) 13.7 - [facility] 16.[facility] gm/dL [facility] LABORATORY Hematocrit 39.7 (L) 40.5 - [facility] 48.5 % [facility] LABORATORY MCV 87.8 82.9 - [facility] 93.1 [facility] LABORATORY MCH 29.6 27.5 - [facility] RYAN 32.1 pg [facility] LABORATORY MCHC 33.8 32.0 - [facility] 35.7 gm/dL [facility] LABORATORY Platelets 189 145 - 357 [facility] x10(3)/[facility] LABORATORY RDWSD 45.6 (H) 36.0 - [facility] 45.0 [facility] LABORATORY RDWCV 14.3 (H) 11.4 - [facility] RYAN 13.8 % [facility] LABORATORY MPV 9.1 7.6 - 12.9 [facility] LABORATORY nRBC % Auto 0.0 % [facility] LABORATORY nRBC Abs Auto 0.000 0.000 - [place] 0.000 [facility] x10(3)/[facility] LABORATORY Specimen Anatomical Collection Method Collection Time Receive d Time (Source) Location / / Volume Laterality Blood specimen 07/06/2017 2:20 AM 017 2:33 (specimen) EST AM EST Resulting Agency Comment Spec In Lab Daphne Shahid MD HEMATOLOGY ORDERABLES Performing Organization Address City/State/ZIP Code Phon e Number [address] (ABNORMAL) APTT (07/06/2017 2:20 AM EST) P athologist Signature PTT 52 (H) 25 - 35 sec [facility] LABORATORY Comment: The recommended therapeutic range for fu ll dose, unfractionated heparin at [facility] is 80 ? 114 seconds. The use [...] [facility]/ZIP Code Phon e Number [address] POCT Glucose (07/06/2017 2:20 AM EST) P athologist Signature POC Glucose 115 65 - 199 [facility] mg/dL [facility] LABORATORY Comment: Supplemental ranges: <140 mg/dL before meals <180 mg/dL all other times of the day Specimen Anatomical Collection Method Collection Time Receive d Time (Source) Location / / Volume Laterality Blood specimen 07/06/2017 2:20 AM 017 2:20 (specimen) EST AM EST Daphne Shahid MD POINT OF CARE TEST ORDERABLE S Performing Organization Address City/State/[place] [address] (ABNORMAL) Cardiac Enzymes (LEB/CGP) (07/06/2017 2:20 AM EST) P athologist Signature Troponin-T 2.13 (H) 0.00 - [facility] 0.00 ng/mL [facility] LABORATORY Comment: [...] additional sample may be indicated. Reference: Third [place] Definition of Myocardial Infarction. Journal of the [...] Organization Address City/State/[place] [address] (ABNORMAL) Hemoglobin A1c (07/06/2017 2:20 AM EST) Analysis Performed At Patho logist Time Signature Hemoglobin A1C 6.8 (H) 4.3 - 5.6 [facility] % [facility] LABORATORY Comment: Reference [...] Mellitus, Diabetes Care 2013; 36: Suppl. 1, S67-62 Est Avg Gluc See note mg/dL ST. [...] hemoglobinopathies. Additional resources are available on [facility] ADA website. Macario HAMMOND, Ruthann J, Deysi R, et al. ??Tr anslating the A1C assay into estimated average glucose values. ??Diabetes Care 2008:31(8):7485-8010. Specimen Anatomical Collection Method Collection Time Receive d Time (Source) Location / / Volume Laterality Blood specimen 07/06/2017 2:20 AM 017 2:34 (specimen) EST AM EST Resulting Agency Comment Spec In Lab Daphne Shahid MD CHEMISTRY ORDERABLES Performing Organization Address City/State/[place] [address] (ABNORMAL) Lipid Panel (07/06/2017 2:20 AM EST) Patholo gist Method Time Signature Chol, Total 150 <=239 [place] mg/dL [facility] Triglycerides 129 <=199 [facility] mg/dL [facility] HDL 32 (L) >=40 [place] mg/dL [facility] LDL Cholesterol 92 <=190 [facility] mg/dL [facility] Chol/HDL Ratio 4.7 ratio [facility] Lipid See Note [place]A Interpretation [facility] Comment: Lipid management should be guided by a p atient? s ASCVD risk, goals and preferences. ACC/AHA Guidelines recommend high intens ity statin if clinical ASCVD or LDL greater than or equal to 190 mg/dL. [email or web address] Adults aged 40-75 with LDL 70-189 mg/dL should have their 10 year ASCVD risk estimated with the ACC/AHA ASCVD risk es timator http://tools.acc.org/JCVMP-Pegv-Whsuwxss r/ Statin should be discussed if risk [...] Organization Address City/State/[place] [address] POCT Glucose (07/06/2017 1:09 AM EST) P athologist Signature POC Glucose 121 65 - 199 [facility] mg/dL [facility] Comment: Supplemental ranges: <140 mg/dL before meals <180 mg/dL all other times of the day Specimen Anatomical Collection Method Collection Time Receive d Time (Source) Location / / Volume Laterality Blood specimen 07/06/2017 1:09 AM 017 1:09 (specimen) EST AM EST Daphne Shahid MD POINT OF CARE TEST ORDERABLE S Performing Organization Address City/State/[place] [address] POCT Glucose (07/06/2017 12:06 AM EST) P athologist Signature POC Glucose 147 65 - 199 [place] RYAN mg/dL [place] [...] Organization Address City/State/[place] [address] (ABNORMAL) POCT Glucose (07/05/2017 [...] Organization Address City/State/[place] [address] (ABNORMAL) POCT Glucose (07/05/2017 [...] Organization Address City/State/[place] [address] (ABNORMAL) POCT Glucose (07/05/2017 9:02 PM EST) P athologist Signature POC Glucose 301 (H) 65 - 199 [facility] mg/dL [facility] Comment: Supplemental ranges: <140 mg/dL before meals <180 mg/dL all other times of the day Specimen Anatomical Collection Method Collection Time Receive d Time (Source) Location / / Volume Laterality Blood specimen 07/05/2017 9:02 PM 017 9:02 (specimen) EST PM EST Daphne Shahid MD POINT OF CARE TEST ORDERABLE S Performing Organization Address City/State/[place] [address] XR Chest PA or [...] 474 ms MUSE SYSTEM (Bezet) Calculated P [place] 50 degrees MUSE SYSTEM Calculated R [place] -28 degrees MUSE SYSTEM Calculated T [place] 90 degrees MUSE SYSTEM INTERPRETATION Sinus tachycardia [...] (ANC) 9.08 (H) 1.70 - [facility] 6.10 [facility] x10(3)/[facility] L LABORATORY Lymphocytes % 7.0 % [facility] Lymphocytes Abs 0.7 (L) 0.9 - 3.2 [facility] x10(3)/[facility] LABORATORY Monocytes % 3.7 % [facility] Monocyte Abs 0.4 0.3 - 0.9 [facility] x10(3)/[facility] LABORATORY Eosinophils % 0.1 % [facility] Eosinophils Abs 0.0 0.0 - 0.4 [facility] x10(3)/[facility] LABORATORY Basophils % 0.2 % [facility] Basophils Abs 0.0 0.0 - 0.1 [facility] x10(3)/[facility] LABORATORY Immature Gran % 0.60 [...] Organization Address City/State/[place] [address] (ABNORMAL) Hemogram (07/05/2017 8:20 PM EST) Analysis Performed At Patho logist Time Signature WBC 10.3 (H) 4.0 - 9.5 [facility] x10(3)/[facility] LABORATORY RBC 4.64 4.58 - [facility] 5.54 [facility] x10(6)/[facility] LABORATORY Hemoglobin 14.1 13.7 - [facility] 16.5 gm/dL [facility] Hematocrit 40.8 40.5 - [facility] 48.5 % [facility] MCV 87.9 82.9 - [place] 93.1 [facility] LABORATORY MCH 30.4 27.5 - [place] OL[place]CK 32.1 pg [facility] LAB[facility]AT[facility] MCHC 34.6 32.0 - [place] OL[place] 35.7 gm/dL [facility] Platelets 204 145 - 357 [facility] x10(3)/[facility] LABORATORY RDWSD 46.1 (H) 36.0 - [facility] 45.0 [facility] LABORATORY RDWCV 14.5 (H) 11.4 - [facility] RYAN 13.8 % [facility] LABORATORY MPV 9.7 7.6 - 12.9 [facility] LABORATORY nRBC % Auto 0.0 % [facility] nRBC Abs Auto 0.000 0.000 - [place] ZHAORYAN 0.000 [facility] x10(3)/[facility] LABORATORY Specimen Anatomical Collection Method Collection Time Receive d Time (Source) Location / / Volume Laterality Blood specimen 07/05/2017 8:20 PM 017 8:27 (specimen) EST PM EST Resulting Agency Comment Spec In Lab Daphne Shahid MD HEMATOLOGY ORDERABLES Performing Organization Address City/State/[place] [address] APTT (07/05/2017 8:20 PM EST) P athologist Signature PTT 32 25 - 35 sec [facility] Comment: The recommended therapeutic range for fu ll dose, unfractionated heparin at [facility] is 80 ? 114 seconds. The use [...] Organization Address City/State/[place] [address] (ABNORMAL) Cardiac Enzymes (LEB/CGP) (07/05/2017 8:20 PM EST) athologist Signature Troponin-T 2.11 (H) 0.00 - [place] OL[place]CK 0.00 ng/mL [facility] Comment: [...] additional sample may be indicated. Reference: Third [place] Definition of Myocardial Infarction. Journal of the [...] Organization Address City/State/[place] [address] (ABNORMAL) Magnesium (07/05/2017 8:20 PM EST) P athologist Signature Magnesium 0.68 (L) 0.69 - 1.07 [facility] mmol/L [facility] LAB[facility] Specimen Anatomical Collection Method Collection Time Receive d Time (Source) Location / / Volume Laterality Blood specimen 07/05/2017 8:20 PM 017 8:27 (specimen) EST PM EST Resulting Agency Comment Spec In Lab Daphne Shahid MD CHEMISTRY ORDERABLES Performing Organization Address City/State/[place] [address] (ABNORMAL) Basic Metabolic Panel (non-fasting) (07/05/2017 8:20 PM EST) P athologist Signature Glucose Lvl 321 (H) 65 - 199 [facility] mg/dL [facility] Comment: Diabetes: [...] [facility] Estimated GFR >60 >=60 [facility] Comment: The reported eGFR should be multiplied b y 1.2 for patients. The MDRD is not an appropriate measure o f renal function for patients with body mass extremes or in patients with acute kidney failure. [email or web address] Specimen Anatomical Collection Method Collection Time Receive d Time (Source) Location / / Volume Laterality Blood specimen 07/05/2017 8:20 PM 017 8:27 (specimen) EST PM EST Resulting Agency Comment Spec In Lab Daphne Shahid MD CHEMISTRY ORDERABLES Performing Organization Address City/State/ZIP Code Phon e [place] [address] (ABNORMAL) POCT Glucose (07/05/2017 7:32 PM EST) P athologist Signature POC Glucose 296 (H) 65 - 199 [facility] mg/dL [facility] Comment: Supplemental ranges: <140 mg/dL before meals <180 mg/dL all other times of the day Specimen Anatomical Collection Method Collection Time Receive d Time (Source) Location / / Volume Laterality Blood specimen 07/05/2017 7:32 PM 017 7:32 (specimen) EST PM EST Daphne Shahid MD POINT OF CARE TEST ORDERABLE S Performing Organization Address City/State/[place] [address] CARDIAC CATHETERIZATION (07/05/2017 6:47 PM EST) Anatomical Region Laterality Modality Other Specimen (Source) Anatomical Location Collection Method / Collectio n Time Received Time / Laterality Volume Narrative 07/05/2017 7:27 PM EST ?[facility] ? Cardiac Cathete rization/Intervention Report ? Patient Name: Natalya, Gregory ? Procedure Date: 07/05/2017 ? A #: [id number] ? Primary Physician: Clarisa, Jet T ? Case #: [id number] ? File Name: [id number] ? Catheterization Order Number: [id number] ? [facility] ? Final Report [place], [place] ? Patient Name: ? Gregory Natalya ?ID#: ?[id number] ? : ?1945 ? Procedure Date: ? [...] presented with: non -STEMI (w/i 7 days). [place] ?Cardiovascular Society angina c lass was IV. [...] t for the entire procedure. ?Dr. Jet Mceknna M.D. was pres ent during the moderate sedation ?intraservice time as documented by the sedation nurse. ??Case time = 00:42. ?Dr. Barbara Alatorre d the coronary angiography, left heart ?catheterization, access site angio graphy and IABP insertion in laborer heading. ? Jet Mckenna M.D. ? Electronically Signed by: Jet bunch M.D. ? Report Finalized: 07/05/2017 ??19:23 ? Report Last Ammended: 10/26/2017 ??10:29 ? Procedure Note Jet Mckenna MD - 10/26/2017Formatt ing of this note might be different from the original. [facility] Cardiac Catheterization/Intervention Re port Patient Name: Gregory Hoang Procedure Date: 07/05/2017 A #: [id number] Primary Physician: Jet Mckenna Case #: [id number] File Name: [id number] Catheterization Order Number: [id number] [facility] [employer] [facility] Final Report [place], [place] Patient Name: Gregory Hoang ID#: [id number] : 1945 Procedure Date: July 05, [...] presented with: non-STEMI ( w/i 7 days). [place] [employer] Society angina class was IV. No [...] angiograph y and IABP insertion in laborer heading. Jet Mckenna M.D. Electronically Signed by: Jet [...] Mccollum ? (Age): 1945(72y) Med Rec#: ? [id number] ?Sex: ?M ? Site Loc: ? [facility] ?Ht / Wt: ??173(cm)/86(kg) Pt. Loc: ?CCU ? BSA: ?2 Study Date: ?? 07/05/2017 ?Pt. Type: Inpatient Tape: ? Referring: Daphne Shahid ([id number]) Referring: MANDA ALCANTAR Reading: Blade Preston ([id number]) Canvassing Manager: Dayami Paula BA, [facility] [...] E-wave Vmax ?0.8 ?m/sec ? MV deceleration [id number] ?msec ? MV A-wave Vmax ?0.8 ?m/sec [...] ? Mid-Inferior ?Akinetic ? Mid-Inferoseptal ?Hypokinetic ? [place]-Septal ? Akinetic ? [place]-Anterior ? Hypokinetic ? [place]-Lateral ?Hypokinetic ? [place]-Inferior ? Akinetic ? [place]-Tip ?Akinetic ? This report has been electronically sign ed by: _ Blade Preston MD ? 07/06/2017 08 :53:15 Images reviewed and interpretation verif ied [facility] Cardiac Ultrasound Laboratory Procedure Note Blade Preston MD - 07/06/2017Formatt ing of this note might be different from the original. Procedure: Transthoracic Echocardiogram Patient: NATALYA MCBRIDE(Age): [birth year]72y) Med Rec#: [id number] Sex: M Site Loc: [facility] Ht / Wt: 173(cm)/86(kg) Pt. Loc: CCU BSA: 2 Study Date: 07/05/2017 Pt. Type: Inpatie nt Tape: Referring: Daphne Shahid ([id number]) Referring: MANDA ALCANTAR Reading: Blade Preston ([id number]) Canvassing Manager: Dayami Paula BA, [facility] [...] MV E-wave Vmax 0.8 m/sec MV deceleration [id number] msec MV A-wave Vmax 0.8 m/sec MV [...] Hypokinetic Mid-Posterolateral Hypokinetic Mid-Inferior Akinetic Mid-Inferoseptal Hypokinetic [place]-Septal Akinetic [place]-Anterior Hypokinetic [place]-Lateral Hypokinetic [place]-Inferior Akinetic [place]-Tip Akinetic This report has been electronically sign ed by: _ Blade Preston MD 07/06/2017 08:53:15 Images reviewed and interpretation verif ied [facility] Cardiac Ultrasound Laboratory Daphne Shahid MD ECHO ORDERABLES Differential, Automated (07/05/2017 4:55 PM EST) athologist Signature Neutrophils % 77.0 % [facility] Neutr Abs (ANC) 5.26 1.70 - [facility] 6.10 [facility] x10(3)/[facility] LABORATORY Lymphocytes % 13.3 % [facility] Lymphocytes Abs 0.9 0.9 - 3.2 [facility] x10(3)/[facility] LABORATORY Monocytes % 8.2 % [facility] Monocyte Abs 0.6 0.3 - 0.9 [facility] x10(3)/[facility] LABORATORY Eosinophils % 0.7 % [facility] Eosinophils Abs 0.0 0.0 - 0.4 [facility] x10(3)/[facility] LABORATORY Basophils % 0.4 % [facility] Basophils Abs 0.0 0.0 - 0.1 [facility] x10(3)/[facility] LABORATORY Immature Gran % 0.40 % NORTH [...] Melisa Gran Abs 0.03 0.00 - 0.04 x10(3)/[facility] MAR Y [facility] LABORATORY Specimen Anatomical Collection Method Collection Time Receive d Time (Source) Location / / Volume Laterality Blood specimen 07/05/2017 4:55 PM 017 5:24 (specimen) EST PM EST Resulting Agency Comment Spec In Lab Daphne Shahid MD HEMATOLOGY ORDERABLES Performing Organization Address City/State/[place] [address] (ABNORMAL) Hemogram (07/05/2017 4:55 PM EST) Analysis Performed At Patho logist Time Signature WBC 6.8 4.0 - 9.5 [facility] x10(3)/[facility] LABORATORY RBC 4.67 4.58 - [facility] 5.54 [facility] x10(6)/[facility] LABORATORY Hemoglobin 14.0 13.7 - [facility] 16.[facility] gm/dL [facility] Hematocrit 41.0 40.5 - [facility] 48.5 % [facility] MCV 87.8 82.9 - [facility] 93.1 [facility] LABORATORY MCH 30.0 27.5 - [facility] RYAN 32.1 pg [facility]AT[facility] MCHC 34.1 32.0 - [facility] 35.[facility] gm/dL [facility] Platelets 197 145 - 357 [facility] x10(3)/[facility] LABORATORY RDWSD 46.4 (H) 36.0 - [facility] 45.0 [facility] LABORATORY RDWCV 14.5 (H) 11.4 - [facility] RYAN 13.8 % [facility] LABORATORY MPV 9.7 7.6 - 12.9 [facility] LABORATORY nRBC % Auto 0.0 % [facility] LABORATORY nRBC Abs Auto 0.000 0.000 - [place] DAVIS 0.000 [facility] x10(3)/[facility] LABORATORY Specimen Anatomical Collection Method Collection Time Receive d Time (Source) Location / / Volume Laterality Blood specimen 07/05/2017 4:55 PM 017 5:24 (specimen) EST PM EST Resulting Agency Comment Spec In Lab Daphne Shahid MD HEMATOLOGY ORDERABLES Performing Organization Address City/State/[place] [address] (ABNORMAL) Cardiac Enzymes (LEB/CGP) [...] additional sample may be indicated. Reference: Third [place] Definition of Myocardial Infarction. Journal of the [...] [facility]/[place] [address] (ABNORMAL) pro-Brain Natriuretic Peptide (07/05/2017 4:55 PM EST) athologist Signature ProBNP 1,598 (H) <=125 [facility] pg/mL [facility]ORY Specimen Anatomical Collection Method Collection Time Receive d Time (Source) Location / / Volume Laterality Blood specimen 07/05/2017 4:55 PM 017 5:24 (specimen) EST PM EST Resulting Agency Comment Spec In Lab Daphne Shahid MD CHEMISTRY ORDERABLES Performing Organization Address City/[facility]/ZIP Code Phon e Number [address] Magnesium (07/05/2017 4:55 PM EST) athologist Signature Magnesium 0.78 0.69 - 1.07 [facility] mmol/L [facility] LAB[facility]ORY Specimen Anatomical Collection Method Collection Time Receive d Time (Source) Location / / Volume Laterality Blood specimen 07/05/2017 4:55 PM 017 5:24 (specimen) EST PM EST Resulting Agency Comment Spec In Lab Daphne Shahid MD CHEMISTRY ORDERABLES Performing Organization Address City/[facility]/[place] [address] (ABNORMAL) Basic Metabolic Panel (non-fasting) (07/05/2017 4:55 PM EST) athologist Signature Glucose Lvl 230 (H) 65 - 199 [facility] mg/dL [facility] Comment: Diabetes: [...] [facility] Estimated GFR >60 >=60 [facility] Comment: The reported eGFR should be multiplied b y 1.2 for patients. The MDRD is not an appropriate measure o f renal function for patients with body mass extremes or in patients with acute kidney failure. [email or web address] [email or web address] Specimen Anatomical Collection Method Collection Time Receive d Time (Source) Location / / Volume Laterality Blood specimen 07/05/2017 4:55 PM 017 5:24 (specimen) EST PM EST Resulting Agency Comment Spec In Lab Daphne Shahid MD CHEMISTRY ORDERABLES Performing Organization Address City/[facility]/[place] [address] (ABNORMAL) APTT (07/05/2017 4:55 PM EST) P athologist Signature PTT 41 (H) 25 - 35 sec [facility] Comment: The recommended therapeutic range for fu ll dose, unfractionated heparin at [facility] is 80 ? 114 seconds. The use [...] Organization Address City/State/[place] [address] (ABNORMAL) POCT Glucose (07/05/2017 4:53 PM EST) P athologist Signature POC Glucose 208 (H) 65 - 199 [facility] mg/dL [facility] Comment: Supplemental [...] Address City/State/ZIP Code Phon e Number [address] EKG 12 Lead (07/05/2017 4:32 PM EST) Component Value Ref Range Test Analysis Performed Pathologis t Method Time At Signature Ventricular rate 97 BPM MUSE SYSTEM Atrial Rate 97 BPM MUSE SYSTEM P-R Interval 148 ms MUSE SYSTEM QRS Duration 96 ms MUSE SYSTEM Q-T Interval 364 ms MUSE SYSTEM QTC Calculated 462 ms MUSE SYSTEM (Bezet) Calculated P [place] 48 degrees MUSE SYSTEM Calculated R [place] -33 degrees MUSE SYSTEM Calculated T [place] 98 degrees MUSE SYSTEM INTERPRETATION Normal sinus [...] Provider: Yanet Valdovinos, VAMSI)[id number] (Stopped - Provider: Moer Luther RN) 0125 (New Bag - Provider: [...] parameters not met)0400 (Not Given - Provider: lAe Rangel RN - Reason: Order parameters not [...] met) 0800 (Not Given - Provider: Em jeo RN - Reason: Order parameters not met)1307 [...]
Routine documented in this encounter Care Teams Science Teacher Relationship Specialty Start Date End Date Lovely Vicente MD PCP - General 04/16/[address] [place] [address] [address] [place] [address] documented as of this encounter
--- OUTSIDE RECORDS SUMMARY | 2022-04-27 08:21 | XMS_ITS | Encounter Summary ---
:1945 [place] [address] Care Team Providers Name Role Phone Lovely Vicente MD Primary Care Provider Reason for Visit Auth/Cert Specialty Diagnoses / Procedures Referred By Contact Refer red To Contact Diagnoses STEMI (ST elevation myocardial infarction) NSTEMI STEMI Procedures CARDIAC CATHETERIZATION NAYE IPI Referral ID Status Reason Start Date Expiration Date Visits Requ ested Visits Authorized [id number] 1 1 Encounter Details Date Type Department Care Team Description 07/07/2017 Anesthesia Event Main Operating Room Yifan Jaime MD [facility] [place] [address] [facility] Ginny Murray MD [facility] [place] [address] [facility] [place] [address] Anesthesia Record Procedure Summary Procedure Name [...] 2342 LDA Cath/EP Sheath 07/05/17; 0606; 8 Marshallese 07/05/17 0606 by 1118 by (Fr); Right; Femoral Lilliana Park, Yane Cook, RN PIV 07/05/17; 1720; median 07/05/17 1720 by 07/11/17 2355 by vein (underside of arm), Prior, Yanet Maza, Angela Mccurdy, left; 18 gauge; removed STONE BANKER per policy/procedure; 07/11/17; 2355 Intra-Aortic Balloon 07/05/17; 1800; right 07/05/17 1800 by 06/25 11/09 1119 by Pump femoral artery; Stephanie Godoy Nunes, Kathl een D, 07/08/17; 1119 RN RN Urethral Catheter 07/07/17; 1241; Surgery 07/07/17 1241 by 07/11 1200 by longer than 2 hours; Kandi Velásquez, vEa Connors RN Physician order; RN indwelling single lumen catheter; urethral catheter removed, per protocol/policy, tubing intact; 07/11/17; 1200 ETT Mask Ventilation: 07/07/17 1348 by 07/09/17 0556 by Adjunct (2) (OA); ETT Ginny Murray MD Miller, Carrie L, Type: Cuffed; ETT Size: TACK CLEANER 8 mm; Santiago Blade: 2; Notes: Asleep, [...] Murray MD - 07/08/2017 5:08 PM EST [facility] Department of Anesthesiology Post-procedure Note Patient: Don Fatima Procedure Summary Date Anesthesia Start Anesthesia Stop Room / Location 07/07/17 1335 1836 [facility] OR [facility] MAIN OR Procedure Diagnosis Surgeon Responsible Provider @CABG, USING ARTERIAL GRAFT;SINGLE ARTERIAL GRAFT (WRVU 33.75) (N/A Chest); @CABG, TWO VENOUS GRAFTS & ARTERIAL GRAFT (WRVU 7.93) (N/A Chest); ENDOSCOPIC HARVEST VEIN(S) FOR CABG (WRVU 0.31) (Right Leg) (CAD) Yuan Freitas MD Hartman, Gregg S, MD All Anesthesia Providers: Anesthesiologist: Yifan Perez MD Ball Holder: Ginny Murray MD Most Recent Vitals: 07/08/17 [...] performed by Manny Mcknight MD at [facility] MAIN OR ??? PRO COLONOSCOPY, REMV LESN, SNARE 01/16/2014 COLONOSCOPY, POLYPECTOMY, REMOVAL LESION BY SNARE performed by Nohemi Jaimes MD at [facility] ENDOSCOPY ??? PRO THYROIDECTOMY 03/28/2013 THYROIDECTOMY, TOTAL OR COMPLETE performed by Manny Mcknight MD at [facility] MAIN OR Social History Substance Use [...] MD [facility] [place], [place] [address] (Wo rk) 05/28/2022 Laboratory Appointment Lab 05/28/2022 Office Visit Cardiology Zulma Dolan MD [facility] [place] [address] Liz Poole PA [facility] [place] [address] 06/10/2022 Office Visit Dermatology Laura Scherer MD [facility] [address] TE[address] GR-DERMAT [place], [place] [address] (Wo rk) documented as of [...] mg documented in this encounter Care Teams Metallurgist Process Relationship Specialty Start Date End Date Lovely Vicente MD PCP - General 04/16/[address] [place] [address] documented as of this encounter
--- OUTSIDE RECORDS SUMMARY | 2022-04-27 08:22 | XMS_ITS | Encounter Summary ---
:1945 Author Organization [place] [address] Care Team Providers Name Role Phone Lovely Vicente MD Primary Care Provider Reason for Visit Reason Comments Thyroid Cancer Encounter Details Date Type Department Care Team Description 06/05/2015 Office Visit Endocrinology at [facility] Albertina Prescott, History of papillary [facility] MD Luz adenocarcinoma of [facility] thyroid (Primary Dx) [place] [address] CENTER [phone] [place] [address] Social History Tobacco Use Types Packs/Day Years [...] the thyroid gland were obtained using a [employer] ultrasound machine. All measurements are given as AP x Transverse x Longitudinal Right Lobe: Absent Left Lobe: Absent Isthmus: Absent Central/Lateral neck: no morphologically abnormal lymph nodes. Impression: No sonographic evidence of recurrence. LUZ PRESCOTT MD Jacquard Fixerprototype engineer manager Section of Endocrinology [facility] [place] Luz Prescott MD - [...] --f/u in 1 year LUZ PRESCOTT MD Jacquard Fixerprototype engineer manager Section of Endocrinology [facility] [...] Zulma Dolan MD [facility] [address] [place], [place] [address] (Wo rk) 05/28/2022 Laboratory Appointment Lab 05/28/2022 Office Visit Cardiology Zulma Dolan MD [facility] [place] [address] Liz Poole PA [facility] [place] [address] 06/10/2022 Office Visit Dermatology Laura Scherer MD [facility] ER DR [address]-DERMAT [place]LOG[place], [place] [address] (Wo rk) documented as of [...] athologist Signature Thyroglobulin 0.6 <=54.9 CERNER ng/mL [facility] Comment: Interpret with caution. Tg levels [...] BR et al. J Clin Endo Metab 1999;84:9689-2990). 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
--- OUTSIDE RECORDS SUMMARY | 2022-04-27 08:22 | XMS_ITS | Encounter Summary ---
:1945 Author Organization [facility] [place] [address] Care Team Providers Name Role Phone Lovely Vicente MD Primary Care Provider Reason for Visit Reason Onset Date Comments Pre Procedure Call 12/02/2016 Encounter Details Date Type Department Care Team Description 12/02/2016 Telephone Dermatology at [facility] Mira James LPN Pre Procedure Call [address] [place] [address] Social History Tobacco Use Types Packs/Day [...] Appointment Cardiology Zulma Dolan MD [facility] [place], [place] [address] (Wo lissa) 05/28/2022 Laboratory Appointment Lab 05/28/2022 Office Visit Cardiology Zulma [place]olan [place] [address] Liz Poole PA [facility] [place] [address] 06/10/2022 Office Visit Dermatology Laura Scherer MD [facility] DR [address] GR-DERMAT OLOG[place], [place] [address] (Wo rk) documented as of this encounter Visit Diagnoses Not on filedocumented in this encounter Care Teams Photo Cartographer Relationship Specialty Start Date End Date Lovely Vicente MD PCP - General 04/16/[address] [place] [address] documented as of this encounter
--- OUTSIDE RECORDS SUMMARY | 2022-04-27 08:22 | XMS_ITS | Encounter Summary ---
:1945 Author Organization [facility] [place] [address] Care Team Providers Name Role Phone Lovely Vicente MD Primary Care Provider Reason for Visit Reason Comments Skin Lesion Encounter Details Date Type Department Care Team Description 11/24/2016 [facility]oplasm of uncertain behavior of skin; Road IIIMD Pigmented skin lesion of uncertain natur e; [address] [facility] [place] of [place] [address] [facility] SIM[facility]N-DERMATOLGY [place], [place] [address] Social History Tobacco Use Types [...] or concerns, please call the office at [phone]. If it is after 5PM, or a holiday or weekend, please call [phone] and ask for the Sports Writer on-call. documented in this encounter Progress Notes [...] 71 y.o. year old male.Established patient of [employer]. Last seen 06/05/16. Here today for new [...] [facility] [place] [address] Liz Poole PA [facility] [place] [address] 06/10/2022 Office Visit Dermatology Laura Scherer MD [facility] ER [address]-DERMAT OLOG[place], [place] [address] (Wo rk) documented as of [...] Test Analysis Performed At [facility] gist Range Method Time Signature Surgical [id number] ?Location: [facility] Report The signing pathologist has [...] Organization Address City/State/[place] [address] Specimen to Pathology (NON-OR) (11/24/2016 8:28 AM EDT) Specimen Anatomical Collection Method Collection Time Receive d Time (Source) Location / / Volume Laterality AP Specimen 11/24/2016 8:28 AM 7 9:29 EDT AM EDT Narrative [facility] - 11/24/2016 9:29 AM EDT Specimen requisition ordered. ??Separate Pathology report to follow Resulting Agency Comment Spec In Lab Rigoberto Garcia III, MD PATHOLOGY/CYTOLOGY ORDERABLE S Performing Organization Address City/State/[place] [address] documented in this encounter Visit Diagnoses Diagnosis Neoplasm of uncertain behavior of skin Pigmented skin lesion of uncertain natur e History of melanoma Personal history of malignant melanoma o f skin documented in this encounter Care Teams Patient Flow Coordinator Relationship Specialty Start Date End Date Lovely Vicente MD PCP - General 04/16/[address] [place] [address] documented as of this encounter
--- OUTSIDE RECORDS SUMMARY | 2022-04-27 08:22 | XMS_ITS | Encounter Summary ---
:1945 Author Organization [facility] [place] [address] Care Team Providers Name Role Phone Lovely Vicente MD Primary Care Provider Encounter Details Date Type Department Care Team Description 09/03/2016 Laboratory Appointment Lab at [facility]x of [facility] [place] [address] Social History Tobacco Use Types Packs/Day Years [...] MD [facility] er Dr [place] [address] (Wo rk) 05/28/2022 Laboratory Appointment Lab 05/28/2022 Office Visit Cardiology Zulma Dolan MD [facility] [place] [address] Liz Poole PA [facility] [place] [address] 06/10/2022 Office Visit Dermatology Laura Scherer MD [facility] ER DR TEJA GR-DERMAT [place], [place] [address] (Wo rk) documented as [...] AM EST) athologist Signature Thyroglobulin <0.4 <=54.9 [facility] ng/mL [facility] Comment: Interpret with caution. [...] than those obtained with T4 withdrawal protocol ([place] BR et al. J Clin Endo Metab 1999;84:5039-3757). Assay performed using the DPC Immulite T [...] Address City/State/ZIP Code Phon e Number [address] TSH (09/03/2016 11:07 AM EST) P athologist Signature TSH 3.01 0.27 - 4.20 [facility] mcIU/mL [facility] Specimen Anatomical Collection Method Collection Time Receive d Time (Source) Location / / Volume Laterality Blood specimen 09/03/2016 11:07 7 (specimen) AM EST 11:22 AM EST Resulting Agency Comment Spec In Lab Luz Prescott MD CHEMISTRY ORDERABLES Performing Organization Address City/[facility]/ZIP [facility] [place] [address] documented in this encounter Visit Diagnoses Diagnosis Hx of papillary thyroid carcinoma Personal history of malignant neoplasm o f thyroid documented in this encounter Care Teams Boat Tester Relationship Specialty Start Date End Date Lovely Vicente MD PCP - General 04/16/[address] [place] [address] documented as of this encounter
--- OUTSIDE RECORDS SUMMARY | 2022-04-27 08:22 | XMS_ITS | Encounter Summary ---
:1945 Author Organization [facility] [place] [address] Care Team Providers Name Role Phone Som Holliday APRN Primary Care Provider Encounter Details Date Type Department Care Team Description 04/11/2014 Procedure visit Gastroenterology at [facility] Esophageal reflux [facility] Luz Winchester RN (Primary Dx) [place] [address] Social History Tobacco Use Types Packs/Day Years Used Date Former Smoker Alcohol Use Standard Drinks/Week Comments No 0 (1 standard drink = 0.6 oz pure alcoho l) Sex Assigned at Date Recorded Not on file documented as of this encounter Progress Notes Adalid Can MD - 04/13/2014 3:43 PM EDT ESOPHAGEAL MANOMETRY Don Fatima Male, 69 yrs, 1945 PCP: SOM HOLLIDAY GAS PLANT TECHNICIAN: NONE STUDY DATE: 04/11/14 PROVIDER: Adalid [place], [place] ([id number]) INDICATION Reflux; preoperative evaluation. METHODS Stationary esophageal manometry was performed with the [employer] esophageal motility system utilizing the Polygram software [...] of the esophagus. Adalid Can, PhD, MD employee service officer, [employer] Section of Gastroenterology and Hepatology [facility] [place] [address] V: [phone] F: [phone] [facility]/gabriela CC/EC: PCP - staff msg copy 04/13/14 Henrique Taylor MD - fax copy 04/13/14 Luz Keller RN - 04/11/2014 8:14 AM EDT Esophageal manometry performed without difficulty and Was well tolerated. documented in this encounter Plan of Treatment Upcoming Encounters Date Type Specialty Care Team Description 05/28/2022 Appointment Cardiology Zulma Dolan MD [facility] [place], [place] [address] (Wo rk) 05/28/2022 Laboratory Appointment Lab 05/28/2022 Office Visit Cardiology Zulma Dolan MD [facility] [place] [address] Liz Poole PA [facility] [place] [address] 06/10/2022 Office Visit Dermatology Laura Scherer MD [facility] DR TE[address] GR-DERMAT [place], [place] [address] (Wo rk) documented as of this encounter Visit Diagnoses Diagnosis Esophageal reflux - Primary documented in this encounter Care Teams Computer Forensic Specialist Relationship Specialty Start Date End Date Som Holliday APRN PCP - General 01/25/13 04/15/[address] [place] [address] documented as of this encounter
--- OUTSIDE RECORDS SUMMARY | 2022-04-27 08:22 | XMS_ITS | Encounter Summary ---
:1945 Author Organization [facility] [place] [address] Care Team Providers Name Role Phone Lovely Vicente MD Primary Care Provider Reason for Visit Reason Comments Skin Check Encounter Details Date Type Department Care Team Description 06/05/2016 Office Visit Dermatology at [facility] istory of melanoma; Abdelrahman HOOPER MD Seborrheic keratosis; [address] [facility] [place] (actinic keratosis); [place] [address] Multiple nevi; [phone] [facility] [address]-DERMATOLGY [place], [place] [address] Social History Tobacco Use Types [...] Cardiology Zulma Dolan MD [facility] [place], [place] [address] (Wo rk) 05/28/2022 Laboratory Appointment Lab 05/28/2022 Office Visit Cardiology Zulma Dolan MD [facility] [place] [address] Liz Poole PA [facility] [place] [address] 06/10/2022 Office Visit Dermatology Laura Scherer MD [facility] DR [address] GR-DERMAT [place], [place] [address] (Wo rk) documented as of this encounter Visit Diagnoses Diagnosis History of melanoma Personal history of malignant melanoma o f skin Seborrheic keratosis Other seborrheic keratosis [place] (actinic keratosis) Actinic keratosis Multiple nevi Benign neoplasm of skin, site unspecifie d Scar Scar condition and fibrosis of skin documented in this encounter Care Teams Telephone Maintainer Relationship Specialty Start Date End Date Lovely Vicente MD PCP - General 04/16/[address] [place] [address] documented as of this encounter
--- OUTSIDE RECORDS SUMMARY | 2022-04-27 08:22 | XMS_ITS | Encounter Summary ---
:1945 Author Organization [facility] [place] [address] Care Team Providers Name Role Phone Lovely Vicente MD Primary Care Provider Encounter Details Date Type Department Care Team Description 07/05/2017 Telephone Cardiology Kim Galindo MD [facility] [place] [address] CARDIOLOGY DEPT [phone] [place], [place] [address] (Wo rk) Social History Tobacco [...] Referring Provider: Ivania CROWELL) Patient Location: [facility] Presenting Symptoms per OSH: 72 year old [...] infarct and elevated troponin, transport patient to [facility] for cath this afternoon and arrhythmia monitoring. Kim Galindo MD Cabinet Mounter documented in this encounter Plan of Treatment Upcoming Encounters Date Type Specialty Care Team Description 05/28/2022 Appointment Cardiology Zulma Dolan MD [facility] [address] [place], [place] [address] (Wo rk) 05/28/2022 Laboratory Appointment Lab 05/28/2022 Office Visit Cardiology Zulma Dolan MD [facility] [place] [id number] Liz Poole PA [facility] [place] [address] 06/10/2022 Office Visit Dermatology Laura Scherer MD [facility] DR [address] GR-DERMAT [place], [place] [address] (Wo rk) documented as of this encounter Visit Diagnoses Not on filedocumented in this encounter Care Teams Acoustic Warfare Analyst Relationship Specialty Start Date End Date Lovely Vicente MD PCP - General 04/16/[address] [place] [address] documented as of this encounter
--- OUTSIDE RECORDS SUMMARY | 2022-04-27 08:22 | XMS_ITS | Encounter Summary ---
:1945 Author Organization [facility] [place] [address] Care Team Providers Name Role Phone Lovely Vicente MD Primary Care Provider Reason for Visit Reason Comments Skin Check Encounter Details Date Type Department Care Team Description 04/16/2015 Follow-Up Dermatology at [facility] x of melanoma of skin; Abdelrahman HOOPER MD Multiple benign nevi [address] [place] [address] [facility]-DERMATOLGY [place], [place] [address] (Wo rk) Social History Tobacco [...] Zulma Dolan MD [facility] [place], [place] [address] (Wo rk) 05/28/2022 Laboratory Appointment Lab 05/28/2022 Office Visit Cardiology Zulma Dolan MD [facility] [place] [address] Liz Poole PA [facility] [place] [address] 06/10/2022 Office Visit Dermatology Laura Scherer MD [facility] [address] TE[address] GR-DERMAT [place], [place] [address] (Wo rk) documented as of this encounter Visit Diagnoses Diagnosis Hx of melanoma of skin Personal history of malignant melanoma o f skin Multiple benign nevi Benign neoplasm of skin, site unspecifie d documented in this encounter Care Teams Asphalt Tar And Gravel Roofer Relationship Specialty Start Date End Date Lovely Vicente MD PCP - General 04/16/[address] [place] [address] [address] [place] [address] documented as of this encounter
--- OUTSIDE RECORDS SUMMARY | 2022-04-27 08:22 | XMS_ITS | Encounter Summary ---
:1945 Author Organization [facility] [place] [address] Care Team Providers Name Role Phone Lovely Vicente MD Primary Care Provider Reason for Visit Reason Comments Follow-up Encounter Details Date Type Department Care Team Description 06/03/2017 Office Visit Dermatology at [facility] benign nevi; Abdelrahman HOOPER MD History of melanoma; [address] [facility] History of dysplastic nevus; [place] [address] Skin exam for malignant neoplasm [phone] [facility]-DER[facility]OLGY [place], [place] [address] Social History Tobacco Use [...] Zulma Dolan MD [facility] [place], [place] [address] (Wo rk) 05/28/2022 Laboratory Appointment Lab 05/28/2022 Office Visit Cardiology Zulma Dolan MD [facility] [place] [address] Liz Poole PA [facility] [place] [address] 06/10/2022 Office Visit Dermatology Laura Scherer MD [facility] [address]-DERMAT [place], [place] [address] (Wo rk) documented as of [...] skin documented in this encounter Care Teams Clothing Trades Workers Relationship Specialty Start Date End Date Lovely Vicente MD PCP - General 04/16/[address] [facility] [address] [place] [address] documented as of this encounter
--- OUTSIDE RECORDS SUMMARY | 2022-04-27 08:22 | XMS_ITS | Encounter Summary ---
:1945 [place] [address] Care Team Providers Name Role Phone Lovely Vicente MD Primary Care Provider Reason for Visit Reason Onset Date Comments Other 12/09/2016 RESULTS Encounter Details Date Type Department Care Team Description 12/09/2016 Telephone Dermatology at [facility] Halima Cadet MD Other (RESULTS) [address] [facility] [place] [address] [facility]-DER[facility]GY [phone] [place], [place] [address] (Wo rk) Social History Tobacco [...] EDT Spoke with patient's , Kisha (personal client relations representative). I advised her Don's pathology results [...] back. She can be reached back at [phone] documented in this encounter Plan of Treatment Upcoming Encounters Date Type Specialty Care Team Description 05/28/2022 Appointment Cardiology Zulma Dolan MD [facility] [address] [place], [place] [address] (Wo rk) 05/28/2022 Laboratory Appointment Lab 05/28/2022 Office Visit Cardiology Zulma Dolan MD [place] [address] Liz Poole PA [facility] [place] [address] 06/10/2022 Office Visit Dermatology Laura Scherer MD [facility] DR [address]-DERMAT [place], [place] [address] (Wo rk) documented as of this encounter Visit Diagnoses Not on filedocumented in this encounter Care Teams Flat Knitter Helper Relationship Specialty Start Date End Date Lovely Vicente MD PCP - General 04/16/[address] [place] [address] documented as of this encounter
--- OUTSIDE RECORDS SUMMARY | 2022-04-27 08:22 | XMS_ITS | Encounter Summary ---
:1945 Author Organization [facility] [place] [address] Care Team Providers Name Role Phone Angela Sotelo APRN Primary Care Provider Encounter Details Date Type Department Care Team Description 01/16/2014 Surgery Gastroenterology at [facility] Nohemi Jaimes, COLONOSCOPY, [facility] Jorge mcnamara MD [place], [place] [address] [facility] LESION BY SNARE ([facility] [phone] DR Cintron) GASTROENTEROLOGY DEPT. [place], [place] [address] Social History Tobacco Use Types [...] you need to be checked. Wednesday-Wednesday Clinic [phone] 8a-5p Same Day Endo [phone]-8p Otherwise contact [phone] and ask to speak to the hogshead wrecker personal attendant Follow up care is a shelton [...] Jaimes MD - 01/16/2014 9:49 AM EDT [facility] Operative Note Patient Name: Gregory Fatima : [id number] MR#: [id number] Case Date: 01/16/2014 Surgeon: Surgeon(s) and Role: * Nohemi Jaimes MD - Primary Preoperative diagnosis: 5 yr surv. Full procedure note is documented under the Procedure section of eDH. documented in this encounter Plan of Treatment Upcoming Encounters Date Type Specialty Care Team Description 05/28/2022 Appointment Cardiology Zulma Dolan MD [facility] [address] [place] [address] (Wo rk) 05/28/2022 Laboratory Appointment Lab 05/28/2022 Office Visit Cardiology Zulma Dolan MD [facility] [place] [address] Liz Poole PA [facility] [place] [address] 06/10/2022 Office Visit Dermatology Laura Scherer MD [facility] [address] [place] [id number] (Wo rk) documented as of this encounter [...] Pathology Report (01/16/2014 9:53 AM EDT) [facility] Method Time Signature Surgical CERNER Pathology ? [facility] Report ? Provider: ?? SHREE, NOHEMI Gonzalez ?Pt. Name: ?? MALICKA RT, GREGORY E ? Acc #: ?[id number] ?Pt. MRN: ?[id number] ? Col Date: ?? 4 ? /Sex: [...] City/State/ZIP Code Phon e Number [place] [id number] RAKESH WALKER Specimen to [...] [facility]/[place] [address] CERNER MILLENNIUM Specimen to [...] MD PATHOLOGY/CYTOLOGY ORDERABLE S Performing Organization Address [facility] [place] [address] CERNER MILLENNIUM COLONOSCOPY (01/16/2014 7:25 AM EDT) [facility] gist Method Time Signature COLONOSCOPY [facility] PROVATION Endoscopy Patient Name: Gregory Fatima ? Procedure Date: 01/16/2014 7:25 AM ? N: [id number] ? Date of : 1945 ? Age: 68 ? Order #: [id number] ? Procedure: ? Colonoscopy Indications: ? High [...] 01/16/2014 7:25 AM EDT Angela Sotelo DIRECTOR OF INVESTIGATIONS GENERAL SURGICAL ORDERABLES Performing Organization Address City/State/ZIP [...] Routine documented in this encounter Care Teams Direct Sales Professional Relationship Specialty Start Date End Date Angela Sotelo APRN PCP - General 01/25/13 04/15/[address] [place] [address] documented as of this encounter
--- OUTSIDE RECORDS SUMMARY | 2022-04-27 08:22 | XMS_ITS | Encounter Summary ---
:1945 Author Organization [facility] [place] [address] Care Team Providers Name Role Phone Lovely Vicente MD Primary Care Provider Encounter Details Date Type Department Care Team Description 09/03/2016 Office Visit Endocrinology at [facility] Maria Ines Stallings of [facility] [place] [address] [place] [address] ENDOCRINOLOGY DEPT [place], [place] [address] Social History Tobacco Use Types [...] to his magnesium pill. LUZ PRESCOTT MD Senior Nurse Managercone chocolate dipper Section of Endocrinology [facility] Luz Prescott MD - 09/03/2016 [...] evidence of recurrence. LUZ PRESCOTT MD Senior Nurse Managercone chocolate dipper Section of Endocrinology [facility] documented in this encounter Plan of Treatment Upcoming Encounters Date Type Specialty Care Team Description 05/28/2022 Appointment Cardiology Zulma Dolan MD [facility] [address] [place] [address] (Wo rk) 05/28/2022 Laboratory Appointment Lab 05/28/2022 Office Visit Cardiology Zulma Dolan MD [facility] [place] [address] [facility] [place] [address] 06/10/2022 Office Visit Dermatology Laura Scherer MD [facility] [address], [place] [address] (Wo rk) documented as of this encounter Results Thyroglobulin (09/07/2017 2:41 PM EST) P athologist Signature Thyroglobulin 1.4 <=54.9 KATALINA RYAN ng/mL [facility] Comment: Thyroglobulin levels may be unreliable a nd falsely low in TgAb positive samples (TgAb <20 is consistent with TgAb negati vity). If Tg Antibodies are present an alternative Tg assay performed via mass spectrometry may be indicated. ??A clinical cutoff of <2.0 ng/ml should be used for athyrotic individuals. Pediatric reference ranges have not been established. Assay performed using the [employer] Immulite T g immunometric assay (lowest detection [...] Prescott MD CHEMISTRY ORDERABLES Performing Organization Address City/[facility]/ZIP Code Phon e Number [address] TSH (09/07/2017 2:41 PM EST) athologist Signature TSH 3.93 0.27 - 4.20 [facility] mlU/ML [facility] Specimen Anatomical Collection Method Collection Time Receive d Time (Source) Location / / Volume Laterality Blood specimen 09/07/2017 2:41 PM 018 2:46 (specimen) EST PM EST Resulting Agency Comment Spec In Lab Luz Prescott MD CHEMISTRY ORDERABLES Performing Organization Address City/[facility] Phon e Number [address] Thyroglobulin (09/03/2016 11:07 AM EST) athologist Signature Thyroglobulin <0.4 <=54.9 [facility] ng/mL [facility] Comment: Interpret with caution. Tg [...] than those obtained with T4 withdrawal protocol (Hills BR et al. J Clin Endo Metab 1999;84:4727-1629). Assay performed using the [employer] Immulite T [...] Prescott MD CHEMISTRY ORDERABLES Performing Organization Address City/[facility]/ZIP Code Phon e Number [address] TSH (09/03/2016 11:07 AM EST) P athologist Signature TSH 3.01 0.27 - 4.20 [facility] mcIU/mL [facility] Specimen Anatomical Collection Method Collection Time Receive d Time (Source) Location / / Volume Laterality Blood specimen 09/03/2016 11:07 7 (specimen) AM EST 11:22 AM EST Resulting Agency Comment Spec In Lab Luz Prescott MD CHEMISTRY ORDERABLES Performing Organization Address City/[facility]/ZIP [place] [address] documented in this encounter Visit Diagnoses Diagnosis Hx of papillary thyroid carcinoma Personal history of malignant neoplasm o f thyroid documented in this encounter Care Teams Editor Index Relationship Specialty Start Date End Date Lovely Vicente MD PCP - General 04/16/[address] [place] [address] documented as of this encounter
--- OUTSIDE RECORDS SUMMARY | 2022-04-27 08:22 | XMS_ITS | Encounter Summary ---
:1945 Author Organization [facility] [place] [address] Care Team Providers Name Role Phone Lovely Vicente MD Primary Care Provider Reason for Visit Reason Onset Date Comments Medication Refill 12/24/2016 Encounter Details Date Type Department Care Team Description 12/24/2016 Refill Endocrinology at [facility] Luz Stallings MD [facility] [place] [address] ENDOCRINOLOGY DEPT [phone] [place], [place] [address] (Wo rk) Social History [...] MD [facility] er [address] [place] [address] (Wo rk) 05/28/2022 Laboratory Appointment Lab 05/28/2022 Office Visit Cardiology Zulma Dolan MD [facility] [place] [address] Liz Poole PA [facility] [place] [address] 06/10/2022 Office Visit Dermatology Laura Scherer MD [facility] [address], [place] [address] (Wo rk) documented as of this encounter Visit Diagnoses Not on filedocumented in this encounter Care Teams Glass Decorator Relationship Specialty Start Date End Date Lovely Vicente MD PCP - General 04/16/[address] [place], [place] [address] documented as of this encounter
--- OUTSIDE RECORDS SUMMARY | 2022-04-27 08:22 | XMS_ITS | Encounter Summary ---
:1945 Author Organization [facility] [place] [address] Care Team Providers Name Role Phone Lovely Vicente MD Primary Care Provider Reason for Visit Reason Comments Nevus excision dysplastic nevus mi d upper abdomen Encounter Details Date Type Department Care Team Description 12/03/2016 Procedure visit Dermatology at [facility] Dysplastic nevus of Road MD Adrián trunk [address] [facility] [address] [facility] [phone] [address] [place] [address] Social History Tobacco Use Types Packs/Day Years [...] Halima Cordero MD during the day at [phone] Nurse: Mira [phone] Amy After 5 PM and on weekends, please call the hospital number , and ask for the Temporary Staff Accountant welder apprentice combination. documented in this encounter Progress Notes Halima Cordero MD - 12/10/2016 5:41 PM EDT Gwendolyn, Excision shows scar, there is no residual of the severely dysplastic nevus. Please notify patient and check on wound healing. Thank you, DTB Halima Cordero MD - 12/03/2016 3:00 PM EDT Images from the original note were not included. Dermatology Procedure note: Attending: Halima Cordero MD Revenue Cycle Administrator: Mira James LPN Referring MD: Rigoberto Garcia [...] to call the clinic or the on-call dam tender assistant over the weekend. ??? Name of Procedure? [...] Cardiology Zulma Dolan MD [facility] [place], [place] [address] (Wo rk) 05/28/2022 Laboratory Appointment Lab 05/28/2022 Office Visit Cardiology [place]ulma [place]olan [place] [address] Liz Poole PA [facility] [place] [address] 06/10/2022 Office Visit Dermatology Laura Scherer MD [facility] [address], [place] [address] (Wo rk) documented as of [...] [facility] Method Time Signature Surgical [id number] ?Location: [facility] The signing pathologist has (i) [...] Clinical Diagnosis: Dysplastic nevus, see previous pathology [id number] SPECIMEN PROCESSING A - Labeled/Fixative: Mid-upper abdomen, [...] Organization Address City/State/[place] [address] Specimen to Pathology (NON-OR) [...] Organization Address City/State/[place] [address] documented in this encounter Visit Diagnoses Diagnosis Dysplastic nevus of trunk Benign neoplasm of skin of trunk, except scrotum documented in this encounter Care Teams Hedge Fund Manager Relationship Specialty Start Date End Date Lovely Vicente MD PCP - General 04/16/[address] [place] [address] documented as of this encounter
--- OUTSIDE RECORDS SUMMARY | 2022-04-27 08:22 | XMS_ITS | Encounter Summary ---
:1945 [place] [address] Care Team Providers Name Role Phone Lovely Vicente MD Primary Care Provider Reason for Visit Auth/Cert Specialty Diagnoses / Procedures Referred By Contact Refer red To Contact Diagnoses STEMI (ST elevation myocardial infarction) NSTEMI STEMI Procedures CARDIAC CATHETERIZATION NAYE IPI Referral ID Status Reason Start Date Expiration Date Visits Requ ested Visits Authorized [id number] 1 1 Encounter Details Date Type Department Care Team Description 07/05/2017 Surgery Mold Technician Jet Guan, CARDIAC CATHETERIZATION [facility] [place] [address] CARDIOLOGY DEPT. [phone] [place], [place] [address] (Wo rk) Social History Tobacco [...] this encounter Discharge Summaries Martha Teague S, TITLE SUPERVISOR - 07/14/2017 9:38 AM EST Inpatient - Discharge Summary Patient Name: Gregory Hoang Patient Age: 72 y.o. Birthdate: 1945 Language: Filipino Race: White Ethnicity: Not nor Admit Date: [...] , @ 1:20p Patient to follow-up with Insurance Account Executive/heart failure team in one week. An appointment will be made for you. You may call [phone] Patient to follow-up with Cardiac Surgery, Dr. Yuan Webber, in ~ 4 weeks with CXR, EKG. Inpatient Provider Contact Information: [facility] Section of Cardiac Surgery [facility] [address] FAX [phone] Discharge Diagnoses (Hospital Problems) Primary Diagnoses: CAD [...] by mouth daily. 90 tablet 3 07/05/2017 [id number] ??? ascorbic acid, vitamin C, (VITAMIN C) [...] Hospital Course: Gregory Hoang was admitted to [facility] on 07/05/2017 via the Cardiology Service. During his hospital course, he was taken emergently to the catheter finisher and inspector for an ongoing STEMI. An IABP was [...] not take or discontinue any prescription or byqm-vmg-uweblsc medications without asking your doctor or pharmacist [...] have your insulin doses adjusted. [facility] office Discharge Instructions: Call your doctor if: You have a fever of greater than 101 degrees, shaking chills, if you develop redness or drainage from your incision sites, or if you have questions. Please call your surgeon's office if you have any discharge or drainage from your chest incision. Your surgeon, Dr. Yuan Webber and/or the Cardiac Surgery Physician Osd Clerk Team may be reached at . [...] Dr. Yuan Webber. You may use a [place] Track or treadmill but avoid any pulling [...] with the surgeon. Do not ride motorcycles, [employer] tractors or horses. Avoid the use of [...] should resume a low fat, low cholesterol, [place] [employer] Diet/Diabetic diet. Driving: No driving [...] , @ 1:20p Patient to follow-up with Insurance Account Executive/heart failure team in one week. Appointment will be made for you. You may call [phone] Patient to follow-up with Cardiac Surgery, Dr. [...] THREE L Lab 3L [facility] [phone] 09/07/2017 4:00 PM Luz Prescott MD [facility]ocrinology at [place] [phone] Future Orders Complete By Expires EKG 12 Lead [EKG1 Custom] 08/14/2017 02/13/2018 Process Instructions: Scheduling Instructions: Questions: Which DH location will this be performed?: [place] Is a rhythm strip needed?: No If EKG Reason is Pre-op Evaluation, indicate diagnosis for surgery.: XR Chest PA & Lateral (Generic) [[id number] Custom] 08/14/2017 02/13/2018 Process Instructions: Scheduling Instructions: Questions: Where will study be performed?: [facility] Portable exam?: Reason for exam and clinical history: CABG x 3 Other pertinent information: Stat read required?: Date of injury if applicable: Requested Time: Referral to Cardiac Rehab [[id number] Custom] As directed Process Instructions: If no progress note charted, please enter Clinical details in comments. Scheduling Instructions: Questions: My question or request is: s/p CABG. Cardiac rehab at [facility] Referral to Home Health - at DISCHARGE [GGK3483 CPT(R)] As directed Process Instructions: Scheduling Instructions: Comments: DOCUMENTATION FOR VNA SERVICES (INCLUDING THOSE PATIENTS WITH MEDICARE COVERAGE REQUIRING HOME VNA SERVICES AND/OR HOSPICE SERVICES) PATIENT'S LOCATION: Gregory Hoang [address] [place] [address] [place] [address] (home) Telephone Information: Roller Skate Repairer's Name: self In discussion with the attending physician, it is certified that this patient is under their care and that they, or a Nurse Practitioner, or Physician Osd Clerk who is working directly with them, [...] M[facility] ([facility] [place] [employer]-is in [place] PHONE: [phone] FAX: [phone] RN orders: Cardiopulmonary assessment, incisional assessment, assess vital signs, assessment of rehab progress, medication management and effectiveness, home safety evaluation. Please draw INR if indicated and send result to:Dr Vicente [phone] PT ORDERS: Continue rehab for endurance, gait stability and strength with mobility and transfers. Home safety evaluation. Home exercise program if appropriate. Start of Care Date:24-48 hours after discharge SPECIAL INSTRUCTIONS: For any follow up questions, needs, or issues please call the Cardiac Surgery Office at [phone] FOR MEDICARE ONLY: (please delete this section [...] [facility] Section of Cardiac Surgery [facility] [address] FAX [phone] Date: 07/14/2017 CC: MD Ivania Cr Betsy, PA [address] [place] [phone] documented in this encounter Discharge Instructions Discharge [...] have your insulin doses adjusted. [facility] Endocrine [facility] office Patient InstructionsStMartha mcdonald APRN [...] not take or discontinue any prescription or gnmx-ohb-soixusw medications without asking your doctor or pharmacist [...] have your insulin doses adjusted. [facility] Endocrine [facility] office ? Discharge Instructions: ?? Call your doctor if: You have a fever of greater than 101 degrees, shaking chills, if you develop redness or drainage from your incision sites, or if you have questions. Please call your surgeon's office if you have any discharge or drainage from your chest incision. Your surgeon, Dr. Yuan Webber and/or the Cardiac Surgery Physician Osd Clerk Team may be reached at . [...] Dr. Yuan Webber. You may use a [place] Track or treadmill but avoid any pulling [...] with the surgeon. Do not ride motorcycles, [employer] tractors or horses. Avoid the use of [...] should resume a low fat, low cholesterol, [place] [employer] Diet/Diabetic diet. ?? Driving: No [...] @ 1:20p ?? Patient to follow-up with Insurance Account Executive/heart failure team in one week. An appointment has been made for you, you can call [phone] ?? Patient to follow-up with Cardiac Surgery, [...] THREE L Lab 3L [facility] [phone] ?? 09/07/2017 4:00 PM Luz Prescott MD [facility]ocrinology at [place] [phone] Future Orders Complete By Expires ?? EKG 12 Lead [EKG1 Custom] 08/14/2017 02/13/2018 ?? Process Instructions: ? Scheduling Instructions: ? Questions: ? Which location will this be performed?: [facility] ?? Is a rhythm strip needed?: No ?? If EKG Reason is Pre-op Evaluation, indicate diagnosis for surgery.: ?? XR Chest PA & Lateral (Generic) [[id number] Custom] 08/14/2017 02/13/2018 ?? Process Instructions: ? Scheduling Instructions: ? Questions: ? Where will study be performed?: [facility] ?? Portable exam?: ?? Reason for exam and clinical history: CABG x 3 ?? Other pertinent information: ?? Stat read required?: ?? Date of injury if applicable: ?? Requested Time: ?? Referral to Cardiac Rehab [[id number] Custom] As directed ? Process Instructions: ?? [...] 07/14/2017 2:34 PM EST The patient/sales representative rural power has been provided a list of Home Health Agencies/DME vendors which serve their preferred geographic area. A letter describing our affiliations was reviewed with them and theywere educated about their right to choose where referrals are placed. Patient requests referral to [facility] [employer]. PHONE: [phone] FAX: [phone] Expected date of discharge: 07/14 Referral routed to the 4 H Youth Development Specialist for matching with agency/vendor and to [...] have your insulin doses adjusted. [facility] office Kathie Carrera APRN [facility] Endocrinology Diabetes Management Pager [phone] minutes of this 35 minute visit was spent with the patient in counseling on diabetes and treatment plan, reviewing all glucose and insulin data as well as relevant laboratory results with the patient, and coordination of care on the inpatient unit including nursing and primary team. Zulma Andres RN - 07/14/2017 10:30 AM EST The patient/sales representative rural power has been provided a list of Home Health Agencies/DME vendors which serve their preferred geographic area. A letter describing our affiliations was reviewed with them and theywere educated about their right to choose where referrals are placed. Patient requests referral to : Yasmani Munguia ([facility] [place] [employer]-is in [place]) PHONE: [phone] FAX: [phone]. Expected date of discharge: 07/14/17 Referral routed to the 4 H Youth Development Specialist for matching with agency/vendor and to [...] hours. If BG remains greater than 240, cyxsrd00 units (no more than three times) &??call [...] to follow Katerin Azul APRN [facility] Endocrinology Diabetes Management Pager [phone] minutes of this 25 minute visit [...] of infiltration/extravasation Discussed plan of care with GARAGE DOOR HANGER and RN. Elevate exrtemity and apply intermittent Warm compresses. Name of MD contacted Dr. Shaw Brown 07/13/2017 @ 0655 Name of RN contacted Ale Rangel RN Name of Pharmacist if consulted NA Name of Plastics MD ( if consulted) NA (Mandatory photo for infiltrations/ extravasations scoring a stage 2 or greater, but recommended forstage 1)( include measuring tape and identifier in the photo) TRUST AND ESTATES PARALEGAL CARING FOR THIS PATIENT WILL CONTINUE TO [...] measuring tape and identifier in the photo) TRUST AND ESTATES PARALEGAL CARING FOR THIS PATIENT WILL CONTINUE TO [...] regard to both infiltrates addressed by this assembly instructions writer.All of Mr. Hoang's responses were entirely appropriate. Images of infiltrates attached here. Martha Sharp APRN - 07/13/2017 8:01 AM EST Cardiac Surgery Progress Note: ID: [id number] 72 year old male POD#6 s/p CABGx3 [...] I have met with the patient/sales representative rural power to discuss discharge planning needs. I have provided the [facility], Office of Care Management letter from the Belt Sewer pertaining to rehab referrals. I have also provided a letter describing our affiliations within the [facility] and educated them about their right to choose where referrals are placed. ?? I reviewed the different levels of rehab including SNF, swing, acute and LTAC with the patient/sales representative rural power. ?? The patient/sales representative rural power has been provided a list of facilities within their preferred geographic area. ?? I have requested that the patient/sales representative rural power provide at least three choices for referral. ?? The patient/sales representative rural power have requested referrals to: ?? 1. . ?? 2. [facility] ?? 3. More to be entered ?? Expected date of discharge: 07/14 Note routed to 4 H Youth Development Specialist who will communicate referrals to facilities and [...] hours. If BG remains greater than 240, wrnafy01 units (no more than three times) & [...] to follow Katerin Azul APRN [facility] Endocrinology Diabetes Management Pager [phone] 20 minutes of this 35 minute visit was spent with the patient in counseling on diabetes and treatment plan, reviewing all glucose and insulin data as well as relevant laboratory results with the patient, and coordination of care on the inpatient unit including nursing and primary team. Makayla Stevenson APRN - 07/12/2017 9:52 AM EST Cardiac Surgery Progress Note: ID: [id number] 72 year old male POD#5 s/p CABGx3 [...] discharge for HF Signed: MAKAYLA WILSON APRN aYnet Rodriguez RN - 07/11/2017 7:18 PM EST [...] AM EST Cardiac Surgery Progress Note: ID: [id number] 72 year old male POD#4 s/p CABGx3 [...] hours. If BG remains greater than 240, vdajhs26 units (no more than three times) & [...] AM EST Cardiac Surgery Progress Note: ID: [id number] 72 year old male POD#3 s/p CABGx3 [...] Gas) No results found for: PHART, PO2ART, NDI2MYL Assessment/Plan: 72 year old male POD#3 s/p [...] Mami Thao - 07/09/2017 6:29 PM EST Hvac Design Mechanical Engineer Encounter Note Patient Name: Gregory Hoang : [id number] MR#: [id number] Admit Date: 07/05/2017 4:20 PM Hospital Day 4 days Narrative: Patient was sitting in chair, hugging heart pillow, opened his eyes, nodding to come into room Assessment: Patient was sleepy. Intervention and Outcome: Introduced client relationship consultant services and patient reached his hand out in appreciation. Follow-up: Hvac Design Mechanical Engineer remains available for support. Time in [...] 07/09/2017 10:45 AM EST Report given to director of staff development to cover care Maddison Cee PA - 07/09/2017 9:00 AM EST Cardiac Surgery Progress Note: ID: [id number] 72 year old male POD#2 s/p CABGx3 [...] Attending Surgeon on rounds. Signed: STEPHANIE Iqbal [facility] Section of Cardiac Surgery Date: [...] when IABP d/c'ed. Gretchen Carolina, PT Pager [phone] Maddison Cee PA - 07/08/2017 11:27 AM EST Cardiac Surgery Progress Note: ID: [id number] 72 year old male POD#1 s/p CABGx3 [...] Attending Surgeon on rounds. Signed: STEPHANIE Iqbal [facility] Section of Cardiac Surgery Date: [...] in place in R femoral. No hematoma. INTERNET WEBMASTER- Intact Psych- Anxious Skin- Dry, no peripheral [...] intact. IABP in place in R femoral. INTERNET WEBMASTER- Intact Psych- Anxious Skin- Dry, no peripheral [...] note for details. DAPHNE SHAHID MD Pager [phone] ClarisaJet lynn MD - 07/05/2017 6:48 PM EST Preliminary Cardiac Catheterization Procedure Note: Procedure(s) performed: Left heart cath, IABP insertion Access: Right MESSENGER OFFICE-->8fr IABP A time-out was conducted prior to [...] effect. Heparin gtt maintained. Pt transferred to catheter finisher and inspector. documented in this encounter H&P Notes Daphne Shahid MD - 07/05/2017 6:08 PM EST CARDIOLOGY HISTORY & PHYSICAL EXAM Date of Admission: 07/05/2017 ( Hospital Day 0 days ) Responsible Attending: Daphne Shahdi MD PCP: Lovely Vicente MD PCP#: [phone] Patient Active Problem List Diagnosis Code ??? [...] No significant valvular disease. Taken to the catheter finisher and inspector urgently for ongoing STEMI. [facility] [...] monitor I/O - s/p lasix in the catheter finisher and inspector, redose to aim net neg 1L by [...] Medicine, PGY-2 Cardiology S1, Team Pager # [phone] CARDIOLOGY ATTENDING NOTE Patient: Gregory Hoang Date [...] amenable for PCI. DAPHNE SHAHID MD Pager [phone] documented in this encounter Miscellaneous Notes Consult Note - Daphne Shahid MD - 07/14/2017 11:46 AM EST Heart Failure Service Inpatient Consult Note Gregory Hoang Date of : 1945 Age: 72 y.o. Today's date: 07/14/17 PCP: Lovely Vicente MD LINE TENDER FLAKEBOARD: None [facility] [place] Service[place] [facility] Reason for Consult: Dr. Webber has requested [...] following studies: EKG 07/14/17: NSR 75 bpm, AUTO PHONE INSTALLER anterior infarct, LAD CXR 07/11/17: FINDINGS: Sternotomy wires. The patient has been extubated, left chest tube removed, and Santee-Suzi catheter removed since the 07/07/2017 study. Atelectasis [...] was discussed with Kono. Jaden Kelley MD Winder Fixer Pager [phone] CARDIOLOGY ATTENDING NOTE Patient: Gregory Hoang Date [...] heart failure clinic. DAPHNE SHAHID MD Pager [phone] Plan of Care - Alden Chavarria PTA [...] home with assist Alden Chavarria PTA Pager: [phone] Inpatient Physical Therapy Problem: Acute Rehab Services [...] to supine -- Bed Mobility Goal, [place] Level supervision required -- Bed Mobility Goal, [...] - 3 days -- Gait Training Goal, [place] Level supervision required -- Gait Training Goal, [...] days -- Transfer Training Goal, Activity Type pdu-pm-mzmgp/ibjyq-gw-hik;dce-pt-comjq/dbrzn-kx-nri;toilet -- Transfer Train Goal, [place] Level supervision required -- Transfer Training Goal, [...] keeping present for 2 days per family. Combination Welder Apprentice noted of frustrations, house keeping sent to room. Patient offered showered twice, refused. at bedside, frustrated that shower not complete, informed that patient had refused several times. requesting to see FOAM RUBBER CURER, paged sent to Martha, will come to bedside (middle of consult). not willing to wait, Martha notified that family had gone home. Encouraged to come for morning rounds a t 8am. Diabetes team at bedside - insulin adjustments made. Call cabello in reach. Continue to monitor. PLAN MOVING FORWARD: Ambulate, dressing changes BID, Please change drsg at 4am per Martha FOAM RUBBER CURER request. INDIVIDUALIZED FALL PREVENTION INTERVENTIONS: Patient-specific fall [...] levels on the lower side, 60ml of [place] juice given after a FS of 80. [...] Conf 07/13/17 0502 Interdisciplinary Rounds/Family Conf Participants showcase maker;dietitian/nutrition services;nursing;occupational therapy;patient;pharmacy;physical therapy;physician Plan of Care [...] monitoring required during toileting and ADLs]: RN GARAGE DOOR HANGER Surveillance [continuous indirect monitoring]: Barrett Monitor CPG [...] Anticipated Discharge Disposition: home with assist Pager: [phone] CLARISSA SEGAL, PT 07/12/2017 Physical Therapy Rehabilitation [...] sit/sit to supine Bed Mobility Goal, [place] Level supervision required Bed Mobility Goal, Additional Goal adheres to psternal precautions for transfer Goal: Gait Training Goal Stand Alone Therapy Goal Outcome: Ongoing (Interventions Implemented as Appropriate) 07/12/17 1225 Gait Training Goal Gait Training Goal, Date Established 07/12/17 Gait Training Goal, Time to Achieve 2 - 3 days Gait Training Goal, [place] Level supervision required Gait Training Goal, Assist [...] 3 days Transfer Training Goal, Activity Type vrw-ig-rmgci/yfqor-zs-rek;pbb-kn-jkwhe/pjkvy-ut-qxu;toilet Transfer Train Goal, [place] Level supervision required Transfer Training Goal, Additional Goal adheres to sternal precautions during transfer Consult Note - Octavia Vaughn RN - 07/12/2017 10:50 AM EST [facility] Gregory Hoang was seen today [...] IV site, amio to other piv and COSMETIC DENTIST at bedside to help assess, IV removed. [...] (Cardiac Surgery) dysrhythmia/arrhythmia Plan of Care - aCthryn Guido RN - 07/10/2017 9:06 PM EST [...] staff, he stood and marched in place. Spraggs weak, wanting to sit back down. Remained [...] Health/Prescription Coverage: Primary Insurance: MEDICARE Secondary Insurance: [employer] [place] Prescription Coverage: yes Preferred Pharmacy: [facility] [place] Other: none Primary Care Provider: Lovely Vicente MD [phone] Patient/Caregiver Goals of Treatment:live and get my breath back Potential Needs for Transition of Care: Rehab/SNF: [facility] Home Health: NA DME: TBD Dialysis: na Community Resources: available Transportation: yes Other: none Anticipated Barriers to Discharge/Special Considerations: none Plan: Likely SNF Rehab before home A member of the Care Management team will continue to monitor progress, follow for continuity of care and assist with transition of care planning. ERLIN Weiss Pager: [phone] Consult Note - Katerin Azul RN - [...] patient W/E coverage, Dr. Jeane Tatum, pager [phone] Katerin Azul APRN Endocrinology Diabetes Management Pager [phone] Plan of Care - Stephanie Godoy RN [...] - 07/07/2017 6:27 PM EST [facility] Operative Note Patient Name: Gregory Hoang : [id number] MR#: [id number] Case Date: 07/07/2017 Surgeon: Surgeon(s) and Role: * Yuan Webber MD - Primary * Michael Drake PA - Physician Osd Clerk * Linda Flores PA - Physician Osd Clerk Preoperative diagnosis: 3VD Postoperative diagnosis: CAD, [...] Operative Note Patient Name: Gregory Hoang : [id number] MR#: [id number] Case Date: 07/07/2017 Surgeon: Surgeon(s) and Role: * Yuan Webber MD - Primary * Michael Drake PA - Physician Osd Clerk * Linda Flores PA - Physician Osd Clerk Preoperative diagnosis: 3VD Postoperative diagnosis: CAD, [...] (reference Cardiac: ACS (Acute Coronary Syndrome) (Adult) [facility]). 07/07/17621 Cardiac: ACS (Acute Coronary [...] Hahn, MS3 [employer] [facility] Cardiology S1 (Pager [phone]) Plan of Care - Emelia Ibarra RN [...] Gregory Hoang at the request of Daphne hSahid MD for the evaluation of Sveren ischemic [...] [facility] ??? PRO COLONOSCOPY, REMV LESN, SNARE 01/16/2014 COLONOSCOPY, POLYPECTOMY, REMOVAL LESION BY SNARE performed by Nohemi Jaimes MD at [facility] ENDOSCOPY ??? PRO THYROIDECTOMY 03/28/2013 THYROIDECTOMY, [...] with other involved physicians Yuan Webber MD [phone] Med Student Progress Note - Katty Hahn [...] or BiPAP - s/p lasix in the catheter finisher and inspector, was net -1.5L - s/p plavix load, [...] insulin drip - hold metformin - f/u [facility] ?? #Home Meds - continue levothyroxine 175mcg - CPAP at night ?? # Routine - DVT PPx: heparin drip - Diet: Healthy heart diet, NPO at midnight for CABG tomorrow - Code Status: FULL - Dispo: [facility] Katty Hahn, M3 [facility] Cardiology S1 (Pager [phone]) Plan of Care - Stephanie Godoy RN - 07/06/2017 5:00 AM EST Problem: Patient Care Overview Goal: Plan of Care Review 07/06/17 8874 Coping/Psychosocial Plan Of Care Reviewed With patient;family [...] in urinal without difficulty. Lasix given in catheter finisher and inspector, 1.4 L out at this time. Pt [...] Appointment Cardiology Zulma Dolan MD [facility] [place] [address] (Wo rk) 05/28/2022 Laboratory Appointment Lab 05/28/2022 Office Visit Cardiology Zulma Dolan MD [facility] [place] [address] Liz Poole PA [facility] [place] [address] 06/10/2022 Office Visit Dermatology Laura Scherer MD [facility] [address] [facility], [place] [address] (Wo rk) Scheduled Orders Name [...] procedure are i n the results section. ALUMINIZER SCAN 07/15/2017 12:00 Res ults for this [...] 4:00 Results f or this ([facility] AM EST procedure are i n the [...] 5:15 Results f or this ([facility]) AM EST procedure are i n the [...] 7:40 Results f or this ([facility]) PM EST procedure are i n the [...] 2:10 Results f or this ([facility] PM EST procedure are i n the [...] AND SCREEN Routine 07/06/2017 12:00 ([facility]) PM EST APTT STAT 07/06/2017 11:24 Results [...] 8:10 Results f or this ([facility]) AM EST procedure are i n the [...] 2:20 Results f or this ([facility]) AM EST procedure are i n the [...] 8:20 Results f or this ([facility]) PM EST procedure are i n the [...] 4:55 Results f or this ([facility]) PM EST procedure are i n the [...] 2017 EXAMINATION: XR CHEST PA AND LATERAL ([employer]) CLINICAL HISTORY: CABG x 3 TECHNIQUE: PA [...] Teague APRN IMG DX ORDERABLES SCAN DOC: ALUMINIZER (07/15/2017 12:00 AM EST) Narrative 07/15/2017 12:00 [...] [facility] mg/dL [facility] Comment: Supplemental ranges: <140 mg/dL before meals <180 mg/dL all other times of the day Specimen Anatomical Collection Method Collection Time Receive d Time (Source) Location / / Volume Laterality Blood specimen 07/14/2017 11:56 7 (specimen) AM EST 11:56 AM EST Yuan Webber MD POINT OF CARE TEST ORDERABLE S Performing Organization Address City/State/[place] [address] POCT Glucose (07/14/2017 7:52 AM EST) athologist Signature POC Glucose 126 65 - 199 [facility] mg/dL [facility] Comment: Supplemental ranges: <140 mg/dL before meals <180 mg/dL all other times of the day Specimen Anatomical Collection Method Collection Time Receive d Time (Source) Location / / Volume Laterality Blood specimen 07/14/2017 7:52 AM 017 7:52 (specimen) EST AM EST Yuan Webber MD POINT OF CARE TEST ORDERABLE S Performing Organization Address City/[facility]/[place] [address] (ABNORMAL) Prothrombin Time (07/14/2017 [...] Wilson APRN HEMATOLOGY ORDERABLES Performing Organization Address City/[facility] Code [facility] [place] [address] Potassium (07/14/2017 4:46 AM EST) athologist Signature Potassium 4.3 3.5 - 5.0 [facility] mmol/L [facility] Comment: Please note: ??Patients with [...] Address City/State/ZIP Code Phon e Number [address] POCT Glucose (07/14/2017 4:34 AM EST) athologist Signature POC Glucose 115 65 - 199 [place] mg/dL [facility] Comment: Supplemental ranges: <140 mg/dL before meals <180 mg/dL all other times of the day Specimen Anatomical Collection Method Collection Time Receive d Time (Source) Location / / Volume Laterality Blood specimen 07/14/2017 4:34 AM 017 4:34 (specimen) EST AM EST Yuan Webber MD POINT OF CARE TEST ORDERABLE S Performing Organization Address City/[facility]/ZIP Code Phon e Number [address] POCT Glucose (07/13/2017 11:33 PM EST) athologist Signature POC Glucose 132 65 - 199 [place]HAORY[place] mg/dL [facility] Comment: Supplemental ranges: <140 mg/dL before meals <180 mg/dL all other times of the day Specimen Anatomical Collection Method Collection Time Receive d Time (Source) Location / / Volume Laterality Blood specimen 07/13/2017 11:33 7 (specimen) PM EST 11:33 PM EST Yuan Webber MD POINT OF CARE TEST ORDERABLE S Performing Organization Address City/[facility]/ZIP Code Phon e Number [place] [address] POCT Glucose (07/13/2017 9:25 PM EST) athologist Signature POC Glucose 121 65 - 199 [place] mg/dL [facility] Comment: Supplemental ranges: <140 mg/dL before meals <180 mg/dL all other times of the day Specimen Anatomical Collection Method Collection Time Receive d Time (Source) Location / / Volume Laterality Blood specimen 07/13/2017 9:25 PM 017 9:25 (specimen) EST PM EST Yuan Webber MD POINT OF CARE TEST ORDERABLE S Performing Organization Address City/State/ZIP Code Phon e Number [address] POCT Glucose (07/13/2017 4:55 PM EST) athologist Signature POC Glucose 79 65 - 199 [facility] RYAN mg/dL [facility] Comment: Supplemental ranges: <140 mg/dL before meals <180 mg/dL all other times of the day Specimen Anatomical Collection Method Collection Time Receive d Time (Source) Location / / Volume Laterality Blood specimen 07/13/2017 4:55 PM 017 4:55 (specimen) EST PM EST Yuan Webber MD POINT OF CARE TEST ORDERABLE S Performing Organization Address City/State/ZIP Code Phon e Number [address] POCT Glucose (07/13/2017 11:16 AM EST) athologist Signature POC Glucose 163 65 - 199 [facility] RYAN mg/dL [facility] Comment: Supplemental ranges: <140 mg/dL before meals <180 mg/dL all other times of the day Specimen Anatomical Collection Method Collection Time Receive d Time (Source) Location / / Volume Laterality Blood specimen 07/13/2017 11:16 7 (specimen) AM EST 11:16 AM EST Yuan Webber MD POINT OF CARE TEST ORDERABLE S Performing Organization Address City/State/ZIP Code Phon e Number [address] POCT Glucose (07/13/2017 8:07 AM EST) athologist Signature POC Glucose 96 65 - 199 [place] mg/dL [facility] Comment: Supplemental ranges: <140 mg/dL before meals <180 mg/dL all other times of the day Specimen Anatomical Collection Method Collection Time Receive d Time (Source) Location / / Volume Laterality Blood specimen 07/13/2017 8:07 AM 017 8:07 (specimen) EST AM EST Yuan Webber MD POINT OF CARE TEST ORDERABLE S Performing Organization Address City/State/ZIP Code Phon e Number [address] (ABNORMAL) Prothrombin Time (07/13/2017 [...] Organization Address City/State/[place] [address] (ABNORMAL) Basic Metabolic Panel (non-fasting) (07/13/2017 4:26 AM EST) athologist Signature Glucose Lvl 95 65 - 199 [facility] mg/dL [facility] Comment: [...] [facility] Estimated GFR 60 >=60 [facility] Comment: The reported eGFR should be multiplied b y 1.2 for patients. The MDRD is not an appropriate measure o f renal function for patients with body mass extremes or in patients with acute kidney failure. http://[employer]/DHnkdep http://[employer]/DHMCnkf Specimen Anatomical Collection Method Collection Time Receive d Time (Source) Location / / Volume Laterality Blood specimen 07/13/2017 4:26 AM 017 4:46 (specimen) EST AM EST Resulting Agency Comment Spec In Lab Makayla Wilson APRN CHEMISTRY ORDERABLES Performing Organization Address City/State/ZIP Code Phon e Number [address] POCT Glucose (07/13/2017 3:52 AM EST) athologist Signature POC Glucose 93 65 - 199 [facility] mg/dL [facility] Comment: Supplemental ranges: <140 mg/dL before meals <180 mg/dL all other times of the day Specimen Anatomical Collection Method Collection Time Receive d Time (Source) Location / / Volume Laterality Blood specimen 07/13/2017 3:52 AM 017 3:52 (specimen) EST AM EST Yuan Webber MD POINT OF CARE TEST ORDERABLE S Performing Organization Address City/State/ZIP Code Phon e Number [address] POCT Glucose (07/13/2017 12:21 AM EST) athologist Signature POC Glucose 80 65 - 199 [facility] Comment: Supplemental ranges: <140 mg/dL before meals <180 mg/dL all other times of the day Specimen Anatomical Collection Method Collection Time Receive d Time (Source) Location / / Volume Laterality Blood specimen 07/13/2017 12:21 7 (specimen) AM EST 12:21 AM EST Yuan Webber MD POINT OF CARE TEST ORDERABLE S Performing Organization Address City/State/ZIP Code Phon e Number [address] POCT Glucose (07/12/2017 8:22 PM EST) athologist Signature POC Glucose 119 65 - 199 [place] ZHAORY[place] mg/dL [facility] Comment: Supplemental ranges: <140 mg/dL before meals <180 mg/dL all other times of the day Specimen Anatomical Collection Method Collection Time Receive d Time (Source) Location / / Volume Laterality Blood specimen 07/12/2017 8:22 PM 017 8:22 (specimen) EST PM EST Yuan Webber MD POINT OF CARE TEST ORDERABLE S Performing Organization Address City/[facility]/ZIP Code Phon e Number [address] POCT Glucose (07/12/2017 4:02 PM EST) athologist Signature POC Glucose 114 65 - 199 [place] mg/dL [facility] Comment: Supplemental ranges: <140 mg/dL before meals <180 mg/dL all other times of the day Specimen Anatomical Collection Method Collection Time Receive d Time (Source) Location / / Volume Laterality Blood specimen 07/12/2017 4:02 PM 017 4:02 (specimen) EST PM EST Yuan Webber MD POINT OF CARE TEST ORDERABLE S Performing Organization Address City/State/ZIP Code Phon e Number [address] POCT Glucose (07/12/2017 11:28 AM EST) P athologist Signature POC Glucose 164 65 - 199 [place] ZHAORYAN mg/dL [facility] Comment: Supplemental ranges: <140 mg/dL before meals <180 mg/dL all other times of the day Specimen Anatomical Collection Method Collection Time Receive d Time (Source) Location / / Volume Laterality Blood specimen 07/12/2017 11:28 7 (specimen) AM EST 11:28 AM EST Yuan Webber MD POINT OF CARE TEST ORDERABLE S Performing Organization Address City/State/ZIP Code Phon e Number [address] POCT Glucose (07/12/2017 7:34 AM EST) athologist Signature POC Glucose 109 65 - 199 [facility] mg/dL [facility] Comment: Supplemental ranges: <140 mg/dL before meals <180 mg/dL all other times of the day Specimen Anatomical Collection Method Collection Time Receive d Time (Source) Location / / Volume Laterality Blood specimen 07/12/2017 7:34 AM 017 7:34 (specimen) EST AM EST Yuan Webber MD POINT OF CARE TEST ORDERABLE S Performing Organization Address City/State/[place] [address] (ABNORMAL) Basic Metabolic Panel (non-fasting) (07/12/2017 4:11 AM EST) athologist Signature Glucose Lvl 92 65 - 199 [facility] Comment: [...] or in patients with acute kidney failure. http://[employer]/DHnkdep http://[employer]/DHMCnkf Specimen Anatomical Collection Method Collection Time Receive d Time (Source) Location / / Volume Laterality Blood specimen 07/12/2017 4:11 AM 017 8:57 (specimen) EST AM EST Resulting Agency Comment Spec In Lab Makayla [place] STACIE CHEMISTRY ORDERABLES Performing Organization Address [facility] [place] [address] (ABNORMAL) Prothrombin Time (07/12/2017 [...] [place] STACIE HEMATOLOGY ORDERABLES Performing Organization Address [facility] Phon e Number [address] Potassium (07/12/2017 4:11 AM EST) P athologist Signature Potassium 3.8 3.5 - 5.0 [facility] mmol/L [facility] Comment: Please note: ??Patients with [...] Wilson APRN CHEMISTRY ORDERABLES Performing Organization Address City/[facility]/ZIP [facility] Phon e Number [address] POCT Glucose (07/12/2017 4:10 AM EST) athologist Signature POC Glucose 90 65 - 199 [facility] mg/dL [facility] Comment: Supplemental ranges: <140 mg/dL before meals <180 mg/dL all other times of the day Specimen Anatomical Collection Method Collection Time Receive d Time (Source) Location / / Volume Laterality Blood specimen 07/12/2017 4:10 AM 017 4:10 (specimen) EST AM EST Yuan Webber MD POINT OF CARE TEST ORDERABLE S Performing Organization Address City/[facility]/ZIP Code Phon e Number [address] POCT Glucose (07/11/2017 11:57 PM EST) athologist Signature POC Glucose 98 65 - 199 [facility] mg/dL [facility] Comment: Supplemental ranges: <140 mg/dL before meals <180 mg/dL all other times of the day Specimen Anatomical Collection Method Collection Time Receive d Time (Source) Location / / Volume Laterality Blood specimen 07/11/2017 11:57 7 (specimen) PM EST 11:57 PM EST Yuan Webber MD POINT OF CARE TEST ORDERABLE S Performing Organization Address City/[facility]/ZIP Code Phon e Number [address] POCT Glucose (07/11/2017 8:32 PM EST) P athologist Signature POC Glucose 146 65 - 199 [place] DAV[place] mg/dL [facility] Comment: Supplemental ranges: <140 mg/dL before meals <180 mg/dL all other times of the day Specimen Anatomical Collection Method Collection Time Receive d Time (Source) Location / / Volume Laterality Blood specimen 07/11/2017 8:32 PM 017 8:32 (specimen) EST PM EST Yuan Webber MD POINT OF CARE TEST ORDERABLE S Performing Organization Address City/State/[place] [address] XR Chest PA & [...] e xtubated, left chest tube removed, and Santee-Suzi catheter removed since the study. Atelectasis at [...] e xtubated, left chest tube removed, and Santee-Suzi catheter removed since the study. Atelectasis at [...] - 199 [place] mg/dL [facility] Comment: Supplemental ranges: <140 mg/dL before meals <180 mg/dL all other times of the day Specimen Anatomical Collection Method Collection Time Receive d Time (Source) Location / / Volume Laterality Blood specimen 07/11/2017 4:05 PM 017 4:05 (specimen) EST PM EST Yuan Webber MD POINT OF CARE TEST ORDERABLE S Performing Organization Address City/[facility]/ZIP Code Phon e Number [address] POCT Glucose (07/11/2017 11:55 AM EST) athologist Signature POC Glucose 176 65 - 199 [place] mg/dL [facility] Comment: Supplemental ranges: <140 mg/dL before meals <180 mg/dL all other times of the day Specimen Anatomical Collection Method Collection Time Receive d Time (Source) Location / / Volume Laterality Blood specimen 07/11/2017 11:55 7 (specimen) AM EST 11:55 AM EST Yuan Webber MD POINT OF CARE TEST ORDERABLE S Performing Organization Address City/State/[place] [address] POCT Glucose (07/11/2017 7:53 AM EST) athologist Signature POC Glucose 189 65 - 199 [place] RY[place] mg/dL [facility] Comment: Supplemental ranges: <140 mg/dL before meals <180 mg/dL all other times of the day Specimen Anatomical Collection Method Collection Time Receive d Time (Source) Location / / Volume Laterality Blood specimen 07/11/2017 7:53 AM 017 7:53 (specimen) EST AM EST Yuan Webber MD POINT OF CARE TEST ORDERABLE S Performing Organization Address City/[facility]/ZIP Code Phon e Number [address] POCT Glucose (07/11/2017 4:22 AM EST) athologist Signature POC Glucose 151 65 - 199 [place] ZHAORYAN mg/dL [facility] Comment: Supplemental ranges: <140 mg/dL before meals <180 mg/dL all other times of the day Specimen Anatomical Collection Method Collection Time Receive d Time (Source) Location / / Volume Laterality Blood specimen 07/11/2017 4:22 AM 017 4:22 (specimen) EST AM EST Yuan Webber MD POINT OF CARE TEST ORDERABLE S Performing Organization Address [facility]/[place] [address] Potassium (07/11/2017 2:20 AM EST) athologist Signature Potassium 4.5 3.5 - 5.0 [facility] mmol/L [facility] Comment: Please note: ??Patients with [...] Webber MD CHEMISTRY ORDERABLES Performing Organization Address City/[facility]/ZIP Code Phon e Number [address] POCT Glucose (07/11/2017 12:17 AM EST) athologist Signature POC Glucose 162 65 - 199 [place] RYAN mg/dL [facility] Comment: Supplemental ranges: <140 mg/dL before meals <180 mg/dL all other times of the day Specimen Anatomical Collection Method Collection Time Receive d Time (Source) Location / / Volume Laterality Blood specimen 07/11/2017 12:17 7 (specimen) AM EST 12:17 AM EST Yuan Webber MD POINT OF CARE TEST ORDERABLE S Performing Organization Address City/State/ZIP Code Phon e Number [address] POCT Glucose (07/10/2017 8:47 PM EST) athologist Signature POC Glucose 191 65 - 199 [place] RY[place] mg/dL [facility] Comment: Supplemental ranges: <140 mg/dL before meals <180 mg/dL all other times of the day Specimen Anatomical Collection Method Collection Time Receive d Time (Source) Location / / Volume Laterality Blood specimen 07/10/2017 8:47 PM 017 8:47 (specimen) EST PM EST Yuan Webber MD POINT OF CARE TEST ORDERABLE S Performing Organization Address City/State/[place] [address] POCT Glucose (07/10/2017 4:06 PM EST) athologist Signature POC Glucose 131 65 - 199 [place] RYAN mg/dL [facility] Comment: Supplemental ranges: <140 mg/dL before meals <180 mg/dL all other times of the day Specimen Anatomical Collection Method Collection Time Receive d Time (Source) Location / / Volume Laterality Blood specimen 07/10/2017 4:06 PM 017 4:06 (specimen) EST PM EST Yuan Webber MD POINT OF CARE TEST ORDERABLE S Performing Organization Address City/State/ZIP Code Phon e Number [address] POCT Glucose (07/10/2017 3:08 PM EST) athologist Signature POC Glucose 151 65 - 199 [facility] RYAN mg/dL [facility] Comment: Supplemental ranges: <140 mg/dL before meals <180 mg/dL all other times of the day Specimen Anatomical Collection Method Collection Time Receive d Time (Source) Location / / Volume Laterality Blood specimen 07/10/2017 3:08 PM 017 3:08 (specimen) EST PM EST Yuan Webber MD POINT OF CARE TEST ORDERABLE S Performing Organization Address City/State/ZIP Code Phon e Number [address] POCT Glucose (07/10/2017 2:25 PM EST) athologist Signature POC Glucose 146 65 - 199 [place] ZHAORY[place] mg/dL [facility] Comment: Supplemental ranges: <140 mg/dL before meals <180 mg/dL all other times of the day Specimen Anatomical Collection Method Collection Time Receive d Time (Source) Location / / Volume Laterality Blood specimen 07/10/2017 2:25 PM 017 2:25 (specimen) EST PM EST Yuan Webber MD POINT OF CARE TEST ORDERABLE S Performing Organization Address City/State/[place] [address] POCT Glucose (07/10/2017 1:23 PM EST) athologist Signature POC Glucose 166 65 - 199 K[place]AL[place] ZHAORYAN mg/dL [facility] Comment: Supplemental ranges: <140 mg/dL before meals <180 mg/dL all other times of the day Specimen Anatomical Collection Method Collection Time Receive d Time (Source) Location / / Volume Laterality Blood specimen 07/10/2017 1:23 PM 017 1:23 (specimen) EST PM EST Yuan Webber MD POINT OF CARE TEST ORDERABLE S Performing Organization Address City/State/[place] [address] POCT Glucose (07/10/2017 11:52 AM EST) athologist Signature POC Glucose 157 65 - 199 [facility] RYAN mg/dL [facility] Comment: Supplemental ranges: <140 mg/dL before meals <180 mg/dL all other times of the day Specimen Anatomical Collection Method Collection Time Receive d Time (Source) Location / / Volume Laterality Blood specimen 07/10/2017 11:52 7 (specimen) AM EST 11:52 AM EST Yuan Webber MD POINT OF CARE TEST ORDERABLE S Performing Organization Address City/State/ZIP Code Phon e Number [address] POCT Glucose (07/10/2017 11:01 AM EST) P athologist Signature POC Glucose 158 65 - 199 [place] ZHAORYAN mg/dL [facility] Comment: Supplemental ranges: <140 mg/dL before meals <180 mg/dL all other times of the day Specimen Anatomical Collection Method Collection Time Receive d Time (Source) Location / / Volume Laterality Blood specimen 07/10/2017 11:01 7 (specimen) AM EST 11:01 AM EST Yuan Webber MD POINT OF CARE TEST ORDERABLE S Performing Organization Address City/[facility]/ZIP Code Phon e Number [address] POCT Glucose (07/10/2017 9:54 AM EST) P athologist Signature POC Glucose 160 65 - 199 [place] RYAN mg/dL [facility] Comment: Supplemental ranges: <140 mg/dL before meals <180 mg/dL all other times of the day Specimen Anatomical Collection Method Collection Time Receive d Time (Source) Location / / Volume Laterality Blood specimen 07/10/2017 9:54 AM 017 9:54 (specimen) EST AM EST Yuan Webber MD POINT OF CARE TEST ORDERABLE S Performing Organization Address City/State/ZIP Code Phon e Number [address] POCT Glucose (07/10/2017 8:58 AM EST) P athologist Signature POC Glucose 183 65 - 199 [place] ZHAORYAN mg/dL [facility] Comment: Supplemental ranges: <140 mg/dL before meals <180 mg/dL all other times of the day Specimen Anatomical Collection Method Collection Time Receive d Time (Source) Location / / Volume Laterality Blood specimen 07/10/2017 8:58 AM 017 8:58 (specimen) EST AM EST Yuan Webber MD POINT OF CARE TEST ORDERABLE S Performing Organization Address City/State/ZIP Code Phon e Number [address] POCT Glucose (07/10/2017 8:01 AM EST) P athologist Signature POC Glucose 173 65 - 199 [place] ZHAORYAN mg/dL [facility] Comment: Supplemental ranges: <140 mg/dL before meals <180 mg/dL all other times of the day Specimen Anatomical Collection Method Collection Time Receive d Time (Source) Location / / Volume Laterality Blood specimen 07/10/2017 8:01 AM 017 8:01 (specimen) EST AM EST Yuan Webber MD POINT OF CARE TEST ORDERABLE S Performing Organization Address City/State/ZIP Code Phon e Number [address] POCT Glucose (07/10/2017 7:05 AM EST) athologist Signature POC Glucose 166 65 - 199 [place] ZHAORYAN mg/dL [facility] Comment: Supplemental ranges: <140 mg/dL before meals <180 mg/dL all other times of the day Specimen Anatomical Collection Method Collection Time Receive d Time (Source) Location / / Volume Laterality Blood specimen 07/10/2017 7:05 AM 017 7:05 (specimen) EST AM EST Yuan Webber MD POINT OF CARE TEST ORDERABLE S Performing Organization Address City/State/[place] [address] POCT Glucose (07/10/2017 6:00 AM EST) athologist Signature POC Glucose 162 65 - 199 [place] RY[place] mg/dL [facility] Comment: Supplemental ranges: <140 mg/dL before meals <180 mg/dL all other times of the day Specimen Anatomical Collection Method Collection Time Receive d Time (Source) Location / / Volume Laterality Blood specimen 07/10/2017 6:00 AM 017 6:00 (specimen) EST AM EST Yuan Webber MD POINT OF CARE TEST ORDERABLE S Performing Organization Address City/State/ZIP Code Phon e Number [place] [id number] [facility] [address] Drive (ABNORMAL) Differential, Automated (07/10/2017 4:28 AM EST) [facility] Method Time Signature Neutrophils % 87.9 % [facility] Neutr Abs (ANC) 10.70 (H) 1.70 - [facility] 6.10 [facility] x10(3)/[facility] L LABORATORY Lymphocytes % 3.9 % [facility] Lymphocytes Abs 0.5 (L) 0.9 - 3.2 [facility] x10(3)/[facility] LABORATORY Monocytes % 7.0 % [facility] Monocyte Abs 0.8 0.3 - 0.9 [facility] x10(3)/[facility] LABORATORY Eosinophils % 0.3 % [facility] Eosinophils Abs 0.0 0.0 - 0.4 [facility] x10(3)/[facility] LABORATORY Basophils % 0.2 % [facility] LABORATORY Basophils Abs 0.0 0.0 - 0.1 [facility] x10(3)/[facility] LABORATORY Immature Gran % 0.70 [...] 0.08 (H) 0.00 - 0.04 x10(3)/[facility] LABORATORY Specimen Anatomical Collection Method Collection Time Receive d Time (Source) Location / / Volume Laterality Blood specimen 07/10/2017 4:28 AM 017 4:36 (specimen) EST AM EST Resulting Agency Comment Spec In Lab Yuan Webber MD HEMATOLOGY ORDERABLES Performing Organization Address City/[facility]/[place] [address] (ABNORMAL) Hemogram (07/10/2017 4:28 AM EST) Analysis Performed At Patho logist Time Signature WBC 12.2 (H) 4.0 - 9.5 [facility] x10(3)/[facility] LABORATORY RBC 3.31 (L) 4.58 - [place] ZHAORYAN 5.54 [facility] x10(6)/[facility] LABORATORY Hemoglobin 9.8 (L) 13.7 - [facility] 16.5 gm/dL [facility] LABORATORY Hematocrit 30.0 (L) 40.5 - [facility] 48.5 % [facility] LABORATORY MCV 90.6 82.9 - [facility] 93.1 [facility] LABORATORY MCH 29.6 27.5 - [facility] 32.1 pg [facility] LABORATORY MCHC 32.7 32.0 - [facility] 35.7 gm/dL [facility] LABORATORY Platelets 135 (L) 145 - 357 [facility] x10(3)/[facility] LABORATORY RDWSD 50.8 (H) 36.0 - [facility] 45.0 [facility] LABORATORY RDWCV 15.4 (H) 11.4 - [facility] 13.8 % [facility] LABORATORY MPV 10.0 7.6 - 12.9 [facility] LABORATORY nRBC % Auto 0.0 % [facility] LABORATORY nRBC Abs Auto 0.000 0.000 - [facility] 0.000 [facility] x10(3)/[facility] LABORATORY Specimen Anatomical Collection Method Collection Time Receive d Time (Source) Location / / Volume Laterality Blood specimen 07/10/2017 4:28 AM 017 4:36 (specimen) EST AM EST Resulting Agency Comment Spec In Lab Yuan Webber MD HEMATOLOGY ORDERABLES Performing Organization Address City/State/ZIP Code Phon e Number [address] (ABNORMAL) Basic Metabolic Panel (non-fasting) (07/10/2017 4:28 AM EST) P athologist Signature Glucose Lvl 178 65 - 199 [facility] mg/dL [facility] LABORATORY Comment: [...] [facility] LAB[facility]ORY Estimated GFR 60 >=60 [facility] LABORATORY Comment: The reported eGFR should be multiplied b y 1.2 for patients. The MDRD is not an appropriate measure o f renal function for patients with body mass extremes or in patients with acute kidney failure. [email or web address]-Obvious/DHnkdep [email or web address]/DHMCnkf Specimen Anatomical Collection Method Collection Time Receive d Time (Source) Location / / Volume Laterality Blood specimen 07/10/2017 4:28 AM 017 4:36 (specimen) EST AM EST Resulting Agency Comment Spec In Lab Yuan Webber MD CHEMISTRY ORDERABLES Performing Organization Address City/State/[place] [address] POCT Glucose (07/10/2017 4:26 AM EST) P athologist Signature POC Glucose 176 65 - 199 [facility] mg/dL [facility] LABORATORY Comment: Supplemental ranges: <140 mg/dL before meals <180 mg/dL all other times of the day Specimen Anatomical Collection Method Collection Time Receive d Time (Source) Location / / Volume Laterality Blood specimen 07/10/2017 4:26 AM 017 4:26 (specimen) EST AM EST Yuan Webber MD POINT OF CARE TEST ORDERABLE S Performing Organization Address City/State/ZIP Code Phon e Number [address] (ABNORMAL) POCT Glucose (07/10/2017 3:06 AM EST) P athologist Signature POC Glucose 204 (H) 65 - 199 [facility] mg/dL [facility] LABORATORY Comment: Supplemental ranges: <140 mg/dL before meals <180 mg/dL all other times of the day Specimen Anatomical Collection Method Collection Time Receive d Time (Source) Location / / Volume Laterality Blood specimen 07/10/2017 3:06 AM 017 3:06 (specimen) EST AM EST Yuan Webber MD POINT OF CARE TEST ORDERABLE S Performing Organization Address City/[facility]/[place] [address] (ABNORMAL) POCT Glucose (07/10/2017 2:10 AM EST) P athologist Signature POC Glucose 203 (H) 65 - 199 [facility] mg/dL [facility] LABORATORY Comment: Supplemental ranges: <140 mg/dL before meals <180 mg/dL all other times of the day Specimen Anatomical Collection Method Collection Time Receive d Time (Source) Location / / Volume Laterality Blood specimen 07/10/2017 2:10 AM 017 2:10 (specimen) EST AM EST Yuan Webber MD POINT OF CARE TEST ORDERABLE S Performing Organization Address City/State/ZIP Code Phon e Number [address] POCT Glucose (07/10/2017 1:09 AM EST) P athologist Signature POC Glucose 196 65 - 199 [facility] mg/dL [facility] LABORATORY Comment: Supplemental ranges: <140 mg/dL before meals <180 mg/dL all other times of the day Specimen Anatomical Collection Method Collection Time Receive d Time (Source) Location / / Volume Laterality Blood specimen 07/10/2017 1:09 AM 2 017 1:09 (specimen) EST AM EST Yuan Webber MD POINT OF CARE TEST ORDERABLE S Performing Organization Address City/State/ZIP Code Phon e Number [address] POCT Glucose (07/10/2017 12:10 AM EST) P athologist Signature POC Glucose 173 65 - 199 [place] mg/dL [facility] LABORATORY Comment: Supplemental ranges: <140 mg/dL before meals <180 mg/dL all other times of the day Specimen Anatomical Collection Method Collection Time Receive d Time (Source) Location / / Volume Laterality Blood specimen 07/10/2017 12:10 7 (specimen) AM EST 12:10 AM EST Yuan Webber MD POINT OF CARE TEST ORDERABLE S Performing Organization Address City/State/[place] [address] POCT Glucose (07/09/2017 11:01 PM EST) P athologist Signature POC Glucose 140 65 - 199 [place] RY[place] mg/dL [facility] LABORATORY Comment: Supplemental ranges: <140 mg/dL before meals <180 mg/dL all other times of the day Specimen Anatomical Collection Method Collection Time Receive d Time (Source) Location / / Volume Laterality Blood specimen 07/09/2017 11:01 7 (specimen) PM EST 11:01 PM EST Yuan Webber MD POINT OF CARE TEST ORDERABLE S Performing Organization Address City/State/[place] [address] POCT Glucose (07/09/2017 10:05 PM EST) P athologist Signature POC Glucose 144 65 - 199 [facility] mg/dL [facility] LABORATORY Comment: Supplemental ranges: <140 mg/dL before meals <180 mg/dL all other times of the day Specimen Anatomical Collection Method Collection Time Receive d Time (Source) Location / / Volume Laterality Blood specimen 07/09/2017 10:05 7 (specimen) PM EST 10:05 PM EST Yuan Webber MD POINT OF CARE TEST ORDERABLE S Performing Organization Address City/State/ZIP Code Phon e Number [address] POCT Glucose (07/09/2017 9:31 PM EST) athologist Signature POC Glucose 121 65 - 199 [place] ZHAORY[place] mg/dL [facility] LABORATORY Comment: Supplemental ranges: <140 mg/dL before meals <180 mg/dL all other times of the day Specimen Anatomical Collection Method Collection Time Receive d Time (Source) Location / / Volume Laterality Blood specimen 07/09/2017 9:31 PM 017 9:31 (specimen) EST PM EST Yuan Webber MD POINT OF CARE TEST ORDERABLE S Performing Organization Address City/[facility]/ZIP Code Phon e Number [address] POCT Glucose (07/09/2017 9:03 PM EST) athologist Signature POC Glucose 98 65 - 199 [place] RY[place] mg/dL [facility] LABORATORY Comment: Supplemental ranges: <140 mg/dL before meals <180 mg/dL all other times of the day Specimen Anatomical Collection Method Collection Time Receive d Time (Source) Location / / Volume Laterality Blood specimen 07/09/2017 9:03 PM 017 9:03 (specimen) EST PM EST Yuan Webber MD POINT OF CARE TEST ORDERABLE S Performing Organization Address City/[facility]/ZIP Code Phon e Number [address] POCT Glucose (07/09/2017 8:09 PM EST) athologist Signature POC Glucose 117 65 - 199 [place] RYAN mg/dL [facility] LABORATORY Comment: Supplemental ranges: <140 mg/dL before meals <180 mg/dL all other times of the day Specimen Anatomical Collection Method Collection Time Receive d Time (Source) Location / / Volume Laterality Blood specimen 07/09/2017 8:09 PM 017 8:09 (specimen) EST PM EST Yuan Webber MD POINT OF CARE TEST ORDERABLE S Performing Organization Address City/State/ZIP Code Phon e Number [address] POCT Glucose (07/09/2017 5:40 PM EST) athologist Signature POC Glucose 155 65 - 199 [place] ZHAORYAN mg/dL [facility] LABORATORY Comment: Supplemental ranges: <140 mg/dL before meals <180 mg/dL all other times of the day Specimen Anatomical Collection Method Collection Time Receive d Time (Source) Location / / Volume Laterality Blood specimen 07/09/2017 5:40 PM 017 5:40 (specimen) EST PM EST Yuan Webber MD POINT OF CARE TEST ORDERABLE S Performing Organization Address City/State/ZIP Code Phon e Number [address] POCT Glucose (07/09/2017 4:24 PM EST) athologist Signature POC Glucose 164 65 - 199 [place] RY[place] mg/dL [facility] LABORATORY Comment: Supplemental ranges: <140 mg/dL before meals <180 mg/dL all other times of the day Specimen Anatomical Collection Method Collection Time Receive d Time (Source) Location / / Volume Laterality Blood specimen 07/09/2017 4:24 PM 017 4:24 (specimen) EST PM EST Yuan Webber MD POINT OF CARE TEST ORDERABLE S Performing Organization Address City/State/ZIP Code Phon e Number [address] POCT Glucose (07/09/2017 3:19 PM EST) athologist Signature POC Glucose 166 65 - 199 [facility] mg/dL [facility] LABORATORY Comment: Supplemental ranges: <140 mg/dL before meals <180 mg/dL all other times of the day Specimen Anatomical Collection Method Collection Time Receive d Time (Source) Location / / Volume Laterality Blood specimen 07/09/2017 3:19 PM 017 3:19 (specimen) EST PM EST Yuan Webber MD POINT OF CARE TEST ORDERABLE S Performing Organization Address City/State/[place] [address] POCT Glucose (07/09/2017 2:26 PM EST) athologist Signature POC Glucose 179 65 - 199 [place] ZHAORYAN mg/dL [facility] LABORATORY Comment: Supplemental ranges: <140 mg/dL before meals <180 mg/dL all other times of the day Specimen Anatomical Collection Method Collection Time Receive d Time (Source) Location / / Volume Laterality Blood specimen 07/09/2017 2:26 PM 017 2:26 (specimen) EST PM EST Yuan Webber MD POINT OF CARE TEST ORDERABLE S Performing Organization Address City/[facility]/[place] [address] (ABNORMAL) POCT Glucose (07/09/2017 1:29 PM EST) athologist Signature POC Glucose 210 (H) 65 - 199 [place] RY[place] mg/dL [facility] LABORATORY Comment: Supplemental ranges: <140 mg/dL before meals <180 mg/dL all other times of the day Specimen Anatomical Collection Method Collection Time Receive d Time (Source) Location / / Volume Laterality Blood specimen 07/09/2017 1:29 PM 017 1:29 (specimen) EST PM EST Yuan Webber MD POINT OF CARE TEST ORDERABLE S Performing Organization Address City/[facility]/[place] [address] POCT Glucose (07/09/2017 12:20 PM EST) athologist Signature POC Glucose 172 65 - 199 [place] ZHAORYAN mg/dL [facility] LABORATORY Comment: Supplemental ranges: <140 mg/dL before meals <180 mg/dL all other times of the day Specimen Anatomical Collection Method Collection Time Receive d Time (Source) Location / / Volume Laterality Blood specimen 07/09/2017 12:20 7 (specimen) PM EST 12:20 PM EST Yuan Webber MD POINT OF CARE TEST ORDERABLE S Performing Organization Address City/State/ZIP Code Phon e Number [address] POCT Glucose (07/09/2017 11:24 AM EST) P athologist Signature POC Glucose 156 65 - 199 [place] mg/dL [facility] LABORATORY Comment: Supplemental ranges: <140 mg/dL before meals <180 mg/dL all other times of the day Specimen Anatomical Collection Method Collection Time Receive d Time (Source) Location / / Volume Laterality Blood specimen 07/09/2017 11:24 7 (specimen) AM EST 11:24 AM EST Yuan Webber MD POINT OF CARE TEST ORDERABLE S Performing Organization Address City/State/ZIP Code Phon e Number [address] POCT Glucose (07/09/2017 11:11 AM EST) P athologist Signature POC Glucose 172 65 - 199 [place] mg/dL [facility] LABORATORY Comment: Supplemental ranges: <140 mg/dL before meals <180 mg/dL all other times of the day Specimen Anatomical Collection Method Collection Time Receive d Time (Source) Location / / Volume Laterality Blood specimen 07/09/2017 11:11 7 (specimen) AM EST 11:11 AM EST Yuan Webber MD POINT OF CARE TEST ORDERABLE S Performing Organization Address City/State/[place] [address] [facility] LAB[address] Drive POCT Glucose (07/09/2017 10:08 AM EST) P athologist Signature POC Glucose 176 65 - 199 [place]AL[place] ZHAORYAN mg/dL [facility] LABORATORY Comment: Supplemental ranges: <140 mg/dL before meals <180 mg/dL all other times of the day Specimen Anatomical Collection Method Collection Time Receive d Time (Source) Location / / Volume Laterality Blood specimen 07/09/2017 10:08 7 (specimen) AM EST 10:08 AM EST Yuan Webber MD POINT OF CARE TEST ORDERABLE S Performing Organization Address City/State/ZIP [place] [address] POCT Glucose (07/09/2017 8:02 AM EST) P athologist Signature POC Glucose 178 65 - 199 [facility] mg/dL [facility] LABORATORY Comment: Supplemental ranges: <140 mg/dL before meals <180 mg/dL all other times of the day Specimen Anatomical Collection Method Collection Time Receive d Time (Source) Location / / Volume Laterality Blood specimen 07/09/2017 8:02 AM 017 8:02 (specimen) EST AM EST Yuan Webber MD POINT OF CARE TEST ORDERABLE S Performing Organization Address City/State/[place] [address] (ABNORMAL) BLOOD GAS 2 ARTERIAL (07/09/2017 5:37 AM EST) Analysis Performed At Patho logist Time Signature pH Art 7.36 7.35 - [facility] 7.45 [facility] LABORATORY pCO2 Art 38 35 - 45 [facility] LABORATORY pO2 Art 79 (L) 85 - 104 [facility] LABORATORY HCO3 Art 20.9 20.0 - [facility] 26.0 [facility] mmol/L [facility] LABORATORY BE Art -4.6 (L) -3.0 - 3.0 [facility] mmol/L [facility] LABORATORY Hgb Blood Gas 10.5 (L) 13.7 - [facility] 16.5 gm/dL [facility] LABORATORY O2HB Art 93.8 (L) 94.0 - [facility] 97.0 % [facility] LABORATORY COHB Art 0.3 % [facility] PF Ratio Art 198 [facility] LABOR[facility]ORY Specimen Anatomical Collection Method Collection Time Receive d Time (Source) Location / / Volume Laterality Blood specimen 07/09/2017 5:37 AM 017 5:37 (specimen) EST AM EST Yuan Webber MD CHEMISTRY ORDERABLES Performing Organization Address City/[facility]/[place] [address] POCT Glucose (07/09/2017 3:27 AM EST) P athologist Signature POC Glucose 192 65 - 199 [facility] mg/dL [facility] LABORATORY Comment: Supplemental ranges: <140 mg/dL before meals <180 mg/dL all other times of the day Specimen Anatomical Collection Method Collection Time Receive d Time (Source) Location / / Volume Laterality Blood specimen 07/09/2017 3:27 AM 017 3:27 (specimen) EST AM EST Yuan Webber MD POINT OF CARE TEST ORDERABLE S Performing Organization Address City/[facility]/[place] [address] (ABNORMAL) Basic Metabolic Panel (non-fasting) (07/09/2017 2:30 AM EST) P athologist Signature Glucose Lvl 179 65 - 199 [facility] mg/dL [facility] LABORATORY Comment: [...] or in patients with acute kidney failure. [email or web address] [email or web address] Specimen Anatomical Collection Method Collection Time Receive d Time (Source) Location / / Volume Laterality Blood specimen Venous Draw / 07/09/2017 2:30 AM 2016 2:42 (specimen) Unknown EST AM EST Resulting Agency Comment Spec In Lab Yuan Webber MD CHEMISTRY ORDERABLES Performing Organization Address City/State/[place] [address] (ABNORMAL) Potassium (07/09/2017 2:30 AM EST) P athologist Signature Potassium 5.1 (H) 3.5 - 5.0 [facility] mmol/L [facility] LABORATORY Comment: Please note: ??Patients with [...] Organization Address City/State/[place] [address] (ABNORMAL) Hemogram (07/09/2017 2:30 AM EST) Analysis Performed At Patho logist Time Signature WBC 12.5 (H) 4.0 - 9.5 [facility] x10(3)/[facility] LABORATORY RBC 3.38 (L) 4.58 - [facility] 5.54 [facility] x10(6)/[facility] LABORATORY Hemoglobin 10.1 (L) 13.7 - [facility] 16.5 gm/dL [facility] LABORATORY Hematocrit 30.3 (L) 40.5 - [facility] 48.5 % [facility] LABORATORY MCV 89.6 82.9 - [facility] 93.1 [facility] LABORATORY MCH 29.9 27.5 - [place] R[place] 32.1 pg [facility] LABORATORY MCHC 33.3 32.0 - [facility] 35.7 gm/dL [facility] LABORATORY Platelets 127 (L) 145 - 357 [facility] x10(3)/[facility] LABORATORY RDWSD 49.3 (H) 36.0 - [place] [address].0 [facility] LABORATORY RDWCV 15.2 (H) 11.4 - [facility] 13.8 % [facility] LABORATORY MPV 9.9 7.6 - 12.9 [facility] LABORATORY nRBC % Auto 0.0 % [facility] LABORATORY nRBC Abs Auto 0.000 0.000 - [place] RY[place] 0.000 [facility] x10(3)/[facility] LABORATORY Specimen Anatomical Collection Method Collection Time Receive d Time (Source) Location / / Volume Laterality Blood specimen 07/09/2017 2:30 AM 017 2:41 (specimen) EST AM EST Resulting Agency Comment Spec In Lab Yuan Webber MD HEMATOLOGY ORDERABLES Performing Organization Address City/[facility]/ZIP Code Phon e Number [address] POCT Glucose (07/09/2017 2:10 AM EST) P athologist Signature POC Glucose 169 65 - 199 [place] ZHAORY[place] mg/dL [facility] LABORATORY Comment: Supplemental ranges: <140 mg/dL before meals <180 mg/dL all other times of the day Specimen Anatomical Collection Method Collection Time Receive d Time (Source) Location / / Volume Laterality Blood specimen 07/09/2017 2:10 AM 017 2:10 (specimen) EST AM EST Yuan Webber MD POINT OF CARE TEST ORDERABLE S Performing Organization Address City/[facility]/[place] [address] POCT Glucose (07/09/2017 1:01 AM EST) P athologist Signature POC Glucose 173 65 - 199 [place] ZHAORY[place] mg/dL [facility] LABORATORY Comment: Supplemental ranges: <140 mg/dL before meals <180 mg/dL all other times of the day Specimen Anatomical Collection Method Collection Time Receive d Time (Source) Location / / Volume Laterality Blood specimen 07/09/2017 1:01 AM 017 1:01 (specimen) EST AM EST Yuan Webber MD POINT OF CARE TEST ORDERABLE S Performing Organization Address City/[facility]/ZIP Code Phon e Number [address] Blood culture (07/09/2017 12:40 AM EST) [facility] Method Time Signature Blood Culture No growth [place] [place]AREAL[place]OCK at 5 days. [facility] LABORATORY Specimen Anatomical Collection Method Collection Time Receive d Time (Source) Location / / Volume Laterality Blood specimen STRUCTURE OF RIGHT 07/09/2017 12:40 3:58 (specimen) UPPER LIMB / AM EST AM EST Unknown Resulting Agency Comment Spec In Lab Yuan Wbeber MD MICROBIOLOGY - BLOOD ORDERAB LES Performing Organization Address City/State/[place] [address] Blood culture (07/09/2017 12:30 AM EST) [facility] Embrane Method Time Signature Blood Culture No growth KATALINA DAVIS at 5 days. [facility] LABORATORY Specimen Anatomical Collection Method Collection Time Receive d Time (Source) Location / / Volume Laterality Blood specimen STRUCTURE OF LEFT 07/09/2017 12:30 1211/2016 3:59 (specimen) UPPER LIMB / AM EST AM EST Unknown Resulting Agency Comment Spec In Lab Yuan Webber MD MICROBIOLOGY - BLOOD ORDERAB LES Performing Organization Address City/[facility]/[place] [address] (ABNORMAL) Urinalysis Microscopic Exam [...] Organization Address City/State/[place] [address] (ABNORMAL) Urinalysis with reflex Culture (07/09/2017 12:05 AM EST) [facility] Embrane Method Time Signature Glucose UA Negative Negative [place]ALINA DAVIS mg/dL [facility] LABORATORY Protein UA 30 (A) Negative [facility] LAB[facility]ORY Bilirubin UA Negative Negative [facility] mg/dL [facility] LABORATORY Comment: Clinical correlation required for [...] CENTER LABORATORY Ketones UA Negative Negative mg/dL [facility] LABORATORY Nitrite UA Negative Negative [facility] LABORATORY Leukocytes UA Negative Negative [facility] LABORATORY Appearance UA Hazy (A) Clear [facility] LABORATORY Spec Ramona UA 1.025 1.002 - 1.030 [facility] LABORATORY Color UA Yellow Yellow [facility] LABORATORY Culture Reflexed No [facility] LABORATORY Specimen (Source) Anatomical Collection Method Collection Time Re ceived Time Location / / Volume Laterality Urine specimen 07/09/2017 12:05 7 obtained via AM EST 12:39 AM EST indwelling urinary catheter (specimen) Resulting Agency Comment Spec In Lab Yuan Webber MD URINE ORDERABLES Performing Organization Address City/[facility]/[place] [address] POCT Glucose (07/08/2017 11:01 PM EST) P athologist Signature POC Glucose 191 65 - 199 [facility] mg/dL [facility] LAB[facility]AT[facility] Comment: Supplemental ranges: <140 mg/dL before meals <180 mg/dL all other times of the day Specimen Anatomical Collection Method Collection Time Receive d Time (Source) Location / / Volume Laterality Blood specimen 07/08/2017 11:01 7 (specimen) PM EST 11:01 PM EST Yuan Webber MD POINT OF CARE TEST ORDERABLE S Performing Organization Address City/State/ZIP [place] [facility] [address] POCT Glucose (07/08/2017 10:04 PM EST) athologist Signature POC Glucose 198 65 - 199 [facility] mg[facility]dL [facility] Comment: Supplemental ranges: <140 mg/dL before meals <180 mg/dL all other times of the day Specimen Anatomical Collection Method Collection Time Receive d Time (Source) Location / / Volume Laterality Blood specimen 07/08/2017 10:04 7 (specimen) PM EST 10:04 PM EST Yuan Webber MD POINT OF CARE TEST ORDERABLE S Performing Organization Address City/State/ZIP Code Phon e Number [address] Prepare Albumin 5% in [...] Address City/State/ZIP Code Phon e Number [address] POCT Glucose (07/08/2017 8:28 PM EST) athologist Signature POC Glucose 195 65 - 199 [place] RYAN mg/dL [facility] Comment: Supplemental ranges: <140 mg/dL before meals <180 mg/dL all other times of the day Specimen Anatomical Collection Method Collection Time Receive d Time (Source) Location / / Volume Laterality Blood specimen 07/08/2017 8:28 PM 017 8:28 (specimen) EST PM EST Yuan Webber MD POINT OF CARE TEST ORDERABLE S Performing Organization Address City/State/[place] [address] (ABNORMAL) POCT Glucose (07/08/2017 7:13 PM EST) P athologist Signature POC Glucose 220 (H) 65 - 199 [facility] mg/dL [facility] Comment: Supplemental ranges: <140 mg/dL before meals <180 mg/dL all other times of the day Specimen Anatomical Collection Method Collection Time Receive d Time (Source) Location / / Volume Laterality Blood specimen 07/08/2017 7:13 PM 017 7:13 (specimen) EST PM EST Yuan Webber MD POINT OF CARE TEST ORDERABLE S Performing Organization Address City/State/ZIP Code Phon e Number [address] POCT Glucose (07/08/2017 5:04 PM EST) athologist Signature POC Glucose 147 65 - 199 [facility] Comment: Supplemental ranges: <140 mg/dL before meals <180 mg/dL all other times of the day Specimen Anatomical Collection Method Collection Time Receive d Time (Source) Location / / Volume Laterality Blood specimen 07/08/2017 5:04 PM 017 5:04 (specimen) EST PM EST Yuan Webber MD POINT OF CARE TEST ORDERABLE S Performing Organization Address City/State/[place] [address] (ABNORMAL) BLOOD GAS 2 ARTERIAL (07/08/2017 4:13 PM EST) Analysis Performed At Patho logist Time Signature pH Art 7.38 7.35 - [facility] 7.45 [facility] pCO2 Art 36 35 - 45 [facility] LABORATORY pO2 Art 91 85 - 104 [facility] LABORATORY HCO3 Art 20.9 20.0 - [facility] 26.0 [facility] mmol/L [facility] LABORATORY BE Art -4.2 (L) -3.0 - 3.0 [facility] mmol/L [facility] Hgb Blood Gas 11.7 (L) 13.7 - [facility] 16.5 gm/dL [facility] O2HB Art 95.1 94.0 - [facility] 97.0 % [facility] COHB Art 0.6 % [facility] PF Ratio Art 228 [facility] LAB[facility] Specimen Anatomical Collection Method Collection Time Receive d Time (Source) Location / / Volume Laterality Blood specimen 07/08/2017 4:13 PM 017 4:13 (specimen) EST PM EST Yuan Webber MD CHEMISTRY ORDERABLES Performing Organization Address City/State/[place] [address] POCT Glucose (07/08/2017 4:01 PM EST) P athologist Signature POC Glucose 148 65 - 199 [facility] mg/dL [facility] Comment: Supplemental ranges: <140 mg/dL before meals <180 mg/dL all other times of the day Specimen Anatomical Collection Method Collection Time Receive d Time (Source) Location / / Volume Laterality Blood specimen 07/08/2017 4:01 PM 017 4:01 (specimen) EST PM EST Yuan Webber MD POINT OF CARE TEST ORDERABLE S Performing Organization Address City/State/ZIP Code Phon e Number [address] POCT Glucose (07/08/2017 3:21 PM EST) athologist Signature POC Glucose 118 65 - 199 [place] ZHAORYAN mg/dL [facility] Comment: Supplemental ranges: <140 mg/dL before meals <180 mg/dL all other times of the day Specimen Anatomical Collection Method Collection Time Receive d Time (Source) Location / / Volume Laterality Blood specimen 07/08/2017 3:21 PM 017 3:21 (specimen) EST PM EST Yuan Webber MD POINT OF CARE TEST ORDERABLE S Performing Organization Address City/State/ZIP Code Phon e Number [address] POCT Glucose (07/08/2017 2:01 PM EST) athologist Signature POC Glucose 129 65 - 199 [place] ZHAORYAN mg/dL [facility] Comment: Supplemental ranges: <140 mg/dL before meals <180 mg/dL all other times of the day Specimen Anatomical Collection Method Collection Time Receive d Time (Source) Location / / Volume Laterality Blood specimen 07/08/2017 2:01 PM 017 2:01 (specimen) EST PM EST Yuan Webber MD POINT OF CARE TEST ORDERABLE S Performing Organization Address City/State/[place] [address] POCT Glucose (07/08/2017 11:53 AM EST) athologist Signature POC Glucose 156 65 - 199 K[place]AL[place] ZHAORYAN mg/dL [facility] Comment: Supplemental ranges: <140 mg/dL before meals <180 mg/dL all other times of the day Specimen Anatomical Collection Method Collection Time Receive d Time (Source) Location / / Volume Laterality Blood specimen 07/08/2017 11:53 7 (specimen) AM EST 11:53 AM EST Yuan Webber MD POINT OF CARE TEST ORDERABLE S Performing Organization Address City/State/ZIP Code Phon e Number [address] POCT Glucose (07/08/2017 11:04 AM EST) athologist Signature POC Glucose 181 65 - 199 [facility] mg/dL [facility] Comment: Supplemental ranges: <140 mg/dL before meals <180 mg/dL all other times of the day Specimen Anatomical Collection Method Collection Time Receive d Time (Source) Location / / Volume Laterality Blood specimen 07/08/2017 11:04 7 (specimen) AM EST 11:04 AM EST Yuan Webber MD POINT OF CARE TEST ORDERABLE S Performing Organization Address City/[facility]/[place] [address] (ABNORMAL) POCT Glucose (07/08/2017 9:24 AM EST) athologist Signature POC Glucose 203 (H) 65 - 199 [facility] mg/dL [facility] Comment: Supplemental ranges: <140 mg/dL before meals <180 mg/dL all other times of the day Specimen Anatomical Collection Method Collection Time Receive d Time (Source) Location / / Volume Laterality Blood specimen 07/08/2017 9:24 AM 017 9:24 (specimen) EST AM EST Yuan Webber MD POINT OF CARE TEST ORDERABLE S Performing Organization Address City/State/[place] [address] APTT (07/08/2017 8:40 AM [...] Webber MD HEMATOLOGY ORDERABLES Performing Organization Address City/[facility]/[place] [address] (ABNORMAL) Prothrombin Time (07/08/2017 [...] Webber MD HEMATOLOGY ORDERABLES Performing Organization Address City/[facility]/[place] [address] (ABNORMAL) POCT Glucose (07/08/2017 7:38 AM EST) P athologist Signature POC Glucose 232 (H) 65 - 199 [facility] mg/dL [facility] Comment: Supplemental ranges: <140 mg/dL before meals <180 mg/dL all other times of the day Specimen Anatomical Collection Method Collection Time Receive d Time (Source) Location / / Volume Laterality Blood specimen 07/08/2017 7:38 AM 017 7:38 (specimen) EST AM EST Yuan Webber MD POINT OF CARE TEST ORDERABLE S Performing Organization Address City/[facility]/[place] [address] (ABNORMAL) POCT Glucose (07/08/2017 7:07 AM EST) athologist Signature POC Glucose 234 (H) 65 - 199 [facility] mg/dL [facility] Comment: Supplemental ranges: <140 mg/dL before meals <180 mg/dL all other times of the day Specimen Anatomical Collection Method Collection Time Receive d Time (Source) Location / / Volume Laterality Blood specimen 07/08/2017 7:07 AM 017 7:07 (specimen) EST AM EST Yuan Webber MD POINT OF CARE TEST ORDERABLE S Performing Organization Address City/State/[place] [address] (ABNORMAL) POCT Glucose (07/08/2017 6:04 AM EST) athologist Signature POC Glucose 225 (H) 65 - 199 [facility] mg/dL [facility] Comment: Supplemental ranges: <140 mg/dL before meals <180 mg/dL all other times of the day Specimen Anatomical Collection Method Collection Time Receive d Time (Source) Location / / Volume Laterality Blood specimen 07/08/2017 6:04 AM 017 6:04 (specimen) EST AM EST Yuan Webber MD POINT OF CARE TEST ORDERABLE S Performing Organization Address City/State/[place] [address] (ABNORMAL) POCT Glucose (07/08/2017 5:31 AM EST) athologist Signature POC Glucose 216 (H) 65 - 199 [facility] mg/dL [facility] Comment: Supplemental ranges: <140 mg/dL before meals <180 mg/dL all other times of the day Specimen Anatomical Collection Method Collection Time Receive d Time (Source) Location / / Volume Laterality Blood specimen 07/08/2017 5:31 AM 017 5:31 (specimen) EST AM EST Yuan Webber MD POINT OF CARE TEST ORDERABLE S Performing Organization Address City/State/[place] [address] (ABNORMAL) POCT Glucose (07/08/2017 4:52 AM EST) P athologist Signature POC Glucose 257 (H) 65 - 199 [facility] mg/dL [facility] Comment: Supplemental ranges: <140 mg/dL before meals <180 mg/dL all other times of the day Specimen Anatomical Collection Method Collection Time Receive d Time (Source) Location / / Volume Laterality Blood specimen 07/08/2017 4:52 AM 017 4:52 (specimen) EST AM EST Daphne Shahid MD POINT OF CARE TEST ORDERABLE S Performing Organization Address City/State/[place] [address] (ABNORMAL) BLOOD GAS 2 ARTERIAL (07/08/2017 4:04 AM EST) Analysis Performed At Patho logist Time Signature pH Art 7.30 (L) 7.35 - [facility] 7.45 [facility] pCO2 Art 41 35 - 45 [facility] LABORATORY pO2 Art 83 (L) 85 - 104 [facility] LABORATORY HCO3 Art 19.6 (L) 20.0 - [facility] 26.0 [facility] mmol/[facility] BE Art -6.8 (L) -3.0 - 3.0 [facility] mmol/L [facility] Hgb Blood Gas 12.2 (L) 13.7 - [facility] 16.5 gm/dL [facility] O2HB Art 93.5 (L) 94.0 - [facility] 97.0 % [facility] COHB Art 0.4 % [facility] Comment: Noted by instrumentation specialist. FIO2 Art 40 % [facility] LABORATORY PF Ratio Art 208 [facility] LAB[facility]ORY Specimen Anatomical Collection Method Collection Time Receive d Time (Source) Location / / Volume Laterality Blood specimen 07/08/2017 4:04 AM 017 4:04 (specimen) EST AM EST Daphne Shahid MD CHEMISTRY ORDERABLES Performing Organization Address City/[facility]/ZIP Code Phon e Number [address] Scan, Peripheral Blood (07/08/2017 [...] Address City/State/ZIP Code Phon e Number [address] (ABNORMAL) Differential, Automated (07/08/2017 4:00 AM EST) Patholo gist Method Time Signature Neutrophils % 85.4 % [facility] LABORATORY Neutr Abs (ANC) 16.07 (H) 1.70 - [facility] 6.10 [facility] x10(3)/[facility] L LABORATORY Lymphocytes % 3.5 % [facility] LABORATORY Lymphocytes Abs 0.6 (L) 0.9 - 3.2 [facility] x10(3)/[facility] LABORATORY Monocytes % 10.4 % [facility] LABORATORY Monocyte Abs 2.0 (H) 0.3 - 0.9 [facility] x10(3)/[facility] LABORATORY Eosinophils % 0.0 % [facility] LABORATORY Eosinophils Abs 0.0 0.0 - 0.4 [facility] x10(3)/[facility] LABORATORY Basophils % 0.1 % [facility] LABORATORY Basophils Abs 0.0 0.0 - 0.1 [facility] x10(3)/[facility] LABORATORY Immature Gran [...] 0.12 (H) 0.00 - 0.04 x10(3)/[facility] LABORATORY Specimen Anatomical Collection Method Collection Time Receive d Time (Source) Location / / Volume Laterality Blood specimen 07/08/2017 4:00 AM 017 4:09 (specimen) EST AM EST Resulting Agency Comment Spec In Lab Yuan Webber MD HEMATOLOGY ORDERABLES Performing Organization Address City/State/[place] [address] (ABNORMAL) Hemogram (07/08/2017 4:00 AM EST) Analysis Performed At Patho logist Time Signature WBC 18.8 (H) 4.0 - 9.5 [facility] x10(3)/[facility] LABORATORY RBC 4.00 (L) 4.58 - [facility] 5.54 [facility] x10(6)/[facility] LABORATORY Hemoglobin 11.9 (L) 13.7 - [facility] 16.5 gm/dL [facility] LABORATORY Hematocrit 35.9 (L) 40.5 - [place] DAVIS 48.5 % [facility] LABORATORY MCV 89.8 82.9 - [facility] [address] [facility] LABORATORY MCH 29.8 27.5 - [place] OLIVASCK 32.1 pg [facility] LABORATORY MCHC 33.1 32.0 - [place] DAVIS 35.7 gm/dL [facility] LABORATORY Platelets 232 145 - 357 [facility] x10(3)/[facility] LABORATORY RDWSD 47.6 (H) 36.0 - [place] DAVIS [address] [facility] LABORATORY RDWCV 14.5 (H) 11.4 - [facility] 13.8 % [facility] LABORATORY MPV 9.5 7.6 - 12.9 [facility] LABORATORY nRBC % Auto 0.0 % [facility] LABORATORY nRBC Abs Auto 0.000 0.000 - [facility] 0.000 [facility] x10(3)/[facility] LABORATORY Specimen Anatomical Collection Method Collection Time Receive d Time (Source) Location / / Volume Laterality Blood specimen 07/08/2017 4:00 AM 017 4:09 (specimen) EST AM EST Resulting Agency Comment Spec In Lab Yuan Webber MD HEMATOLOGY ORDERABLES Performing Organization Address City/State/ZIP Code Phon e Number [place] [id number] (ABNORMAL) Electrolytes panel (07/08/2017 4:00 AM EST) P athologist Signature Sodium 139 135 - 145 [facility] mmol/L [facility] LABORATORY Potassium 4.7 3.5 - 5.0 [facility] mmol/L [facility] Comment: result [id number] Please note: [...] CO2 21 (L) 22 - 31 mmol/L [facility] Anion Gap 14 5 - 15 mmol/L [place] RYAN [facility] LABORATORY Specimen Anatomical Collection Method Collection Time Receive d Time (Source) Location / / Volume Laterality Blood specimen 07/08/2017 4:00 AM 017 4:10 (specimen) EST AM EST Resulting Agency Comment Spec In Lab Yuan Webber MD CHEMISTRY ORDERABLES Performing Organization Address City/State/[place] [address] (ABNORMAL) Cardiac Enzymes (LEB/CGP) (07/08/2017 4:00 AM EST) P athologist Signature Troponin-T 1.88 (H) 0.00 - [facility] 0.00 ng/mL [facility] Comment: The 99th percentile for [...] additional sample may be indicated. Reference: Third [place] Definition of Myocardial Infarction. Journal of the [place] [employer] 2012;60:1581-98 CK, Total 413 [...] Address City/State/ZIP Code Phon e Number [address] (ABNORMAL) Glucose, fasting (07/08/2017 4:00 AM EST) P athologist Signature Glucose 287 (H) 65 - 99 [facility] Fasting mg/dL [facility] Comment: ?Fasting* Glucose Interpretive C [...] Diabetes Mellitus, Position Statement from the [place] [employer]. ??Diabete s Care, Volume 33, Supplement 1, Jul 2009 Specimen Anatomical Collection Method Collection Time Receive d Time (Source) Location / / Volume Laterality Blood specimen 07/08/2017 4:00 AM 017 4:09 (specimen) EST AM EST Resulting Agency Comment Spec In Lab Yuan Webber MD CHEMISTRY ORDERABLES Performing Organization Address City/[facility]/[place] [address] (ABNORMAL) Creatinine (07/08/2017 4:00 AM EST) Analysis Performed At Patho logist Time Signature Creatinine 1.55 (H) 0.80 - [place] 1.50 mg/dL [facility] LABORATORY Estimated GFR 44 (L) >=60 [facility] LABOR[facility]ORY Comment: The reported eGFR should be multiplied b y 1.2 for patients. The MDRD is not an appropriate measure o f renal function for patients with body mass extremes or in patients with acute kidney failure. http://[employer].B-Obvious/DHadelitakdep http://[employer].B-Obvious/DHMCnkf Specimen Anatomical Collection Method Collection Time Receive d Time (Source) Location / / Volume Laterality Blood specimen 07/08/2017 4:00 AM 017 4:09 (specimen) EST AM EST Resulting Agency Comment Spec In Lab Yuan Webber MD CHEMISTRY ORDERABLES Performing Organization Address City/[facility]/ZIP Code Phon e Number [address] BUN (07/08/2017 4:00 AM EST) P athologist Signature BUN 16 10 - 20 [place] RYAN mg/dL [facility] LABORATORY Specimen Anatomical Collection Method Collection Time Receive d Time (Source) Location / / Volume Laterality Blood specimen 07/08/2017 4:00 AM 017 4:09 (specimen) EST AM EST Resulting Agency Comment Spec In Lab Yuan Webber MD CHEMISTRY ORDERABLES Performing Organization Address City/[facility]/[place] [address] (ABNORMAL) POCT Glucose (07/08/2017 3:00 AM EST) athologist Signature POC Glucose 273 (H) 65 - 199 [facility] mg/dL [facility] Comment: Supplemental ranges: <140 mg/dL before meals <180 mg/dL all other times of the day Specimen Anatomical Collection Method Collection Time Receive d Time (Source) Location / / Volume Laterality Blood specimen 07/08/2017 3:00 AM 017 3:00 (specimen) EST AM EST Daphne Shahid MD POINT OF CARE TEST ORDERABLE S Performing Organization Address City/[facility]/ZIP Code Phon e Number [address] (ABNORMAL) POCT Glucose (07/08/2017 1:57 AM EST) P athologist Signature POC Glucose 288 (H) 65 - 199 [facility] mg/dL [facility] Comment: Supplemental ranges: <140 mg/dL before meals <180 mg/dL all other times of the day Specimen Anatomical Collection Method Collection Time Receive d Time (Source) Location / / Volume Laterality Blood specimen 07/08/2017 1:57 AM 017 1:57 (specimen) EST AM EST Daphne Shahid MD POINT OF CARE TEST ORDERABLE S Performing Organization Address City/[facility]/[place] [address] (ABNORMAL) POCT Glucose (07/08/2017 1:01 AM EST) athologist Signature POC Glucose 315 (H) 65 - 199 [facility] mg/dL [facility] Comment: Supplemental ranges: <140 mg/dL before meals <180 mg/dL all other times of the day Specimen Anatomical Collection Method Collection Time Receive d Time (Source) Location / / Volume Laterality Blood specimen 07/08/2017 1:01 AM 017 1:01 (specimen) EST AM EST Daphne Shahid MD POINT OF CARE TEST ORDERABLE S Performing Organization Address City/[facility]/[place] [address] (ABNORMAL) BLOOD GAS 2 ARTERIAL (07/08/2017 12:09 AM EST) athologist Signature pH Art 7.26 7.35 - [facility] (Critical) 7.45 [facility] Comment: Noted by instrumentation specialist. [...] [facility] COHB Art 0.2 % [facility] Comment: Noted by instrumentation specialist. FIO2 Art 40 % [facility] LABORATORY PF Ratio Art 240 [facility] LAB[facility]ORY Specimen Anatomical Collection Method Collection Time Receive d Time (Source) Location / / Volume Laterality Blood specimen Arterial Draw / 07/08/2017 12:09 2016 5:31 (specimen) Unknown AM EST AM EST Resulting Agency Comment Spec In Lab Samy Maldonado MD CHEMISTRY ORDERABLES Performing Organization Address City/State/[place] [address] (ABNORMAL) POCT Glucose (07/07/2017 10:56 PM EST) P athologist Signature POC Glucose 292 (H) 65 - 199 [facility] mg/dL [facility] Comment: Supplemental ranges: <140 mg/dL before meals <180 mg/dL all other times of the day Specimen Anatomical Collection Method Collection Time Receive d Time (Source) Location / / Volume Laterality Blood specimen 07/07/2017 10:56 7 (specimen) PM EST 10:56 PM EST Daphne T Kono MD POINT OF CARE TEST ORDERABLE S Performing Organization Address City/State/[place] [address] (ABNORMAL) BLOOD GAS 2 ARTERIAL (07/07/2017 10:04 PM EST) athologist Signature pH Art 7.22 7.35 - [facility] (Critical) 7.45 [facility] Comment: Noted by instrumentation specialist. [...] [facility] COHB Art 0.7 % [facility] Comment: Noted by instrumentation specialist. FIO2 Art 40 % [facility] LABOR[facility]ORY PF Ratio Art 235 [facility] LAB[facility] Specimen Anatomical Collection Method Collection Time Receive d Time (Source) Location / / Volume Laterality Blood specimen 07/07/2017 10:04 7 (specimen) PM EST 10:04 PM EST Daphne Shahid MD CHEMISTRY ORDERABLES Performing Organization Address City/[facility]/ZIP Code Phon e Number [address] (ABNORMAL) Hemoglobin (07/07/2017 10:00 PM EST) P athologist Signature Hemoglobin 12.8 (L) 13.7 - [facility] 16.5 gm/dL [facility] HOSPITAL LAB[facility]ATORY Specimen Anatomical Collection Method Collection Time Receive d Time (Source) Location / / Volume Laterality Blood specimen 07/07/2017 10:00 7 (specimen) PM EST 10:13 PM EST Resulting Agency Comment Spec In Lab Yuan Webber MD HEMATOLOGY ORDERABLES Performing Organization Address City/[facility]/[place] [address] (ABNORMAL) Potassium (07/07/2017 10:00 PM EST) P athologist Signature Potassium 3.4 (L) 3.5 - 5.0 [facility] mmol/L [facility] Comment: Please note: ??Patients with [...] Organization Address City/State/[place] [address] (ABNORMAL) POCT Glucose (07/07/2017 8:49 PM EST) P athologist Signature POC Glucose 241 (H) 65 - 199 [facility] mg/dL [facility] Comment: Supplemental ranges: <140 mg/dL before meals <180 mg/dL all other times of the day Specimen Anatomical Collection Method Collection Time Receive d Time (Source) Location / / Volume Laterality Blood specimen 07/07/2017 8:49 PM 017 8:49 (specimen) EST PM EST Daphne Shahid MD POINT OF CARE TEST ORDERABLE S Performing Organization Address City/[facility]/[place] [address] Prepare Albumin 5% in [...] BROWN BLOOD BANK ORDERABLES Performing Organization Address City/[facility]/[place] [address] EKG 12 Lead (07/07/2017 7:17 PM EST) Component Value Ref Range Test Analysis Performed Pathologis t Method Time At Signature Ventricular rate 75 BPM MUSE SYSTEM Atrial Rate 75 BPM MUSE SYSTEM P-R Interval 168 ms MUSE SYSTEM QRS Duration 104 ms MUSE SYSTEM Q-T Interval 462 ms MUSE SYSTEM QTC Calculated 515 ms MUSE SYSTEM (Bezet) Calculated P Rutherford 52 degrees MUSE SYSTEM Calculated R Rutherford -40 degrees MUSE SYSTEM Calculated T Rutherford 39 degrees MUSE SYSTEM INTERPRETATION Normal sinus [...] 7.35 - [facility] (Critical) 7.45 [facility] Comment: Noted by instrumentation specialist. [...] [facility] COHB Art 0.5 % [facility] Comment: Noted by instrumentation specialist. Please [...] [facility] Comment: Noted by instrumentation specialist. FIO2 Art 100 % [facility] PF Ratio Art 238 [facility] Specimen Anatomical Collection Method Collection Time Receive d Time (Source) Location / / Volume Laterality Blood specimen 07/07/2017 6:57 PM 017 6:57 (specimen) EST PM EST Daphne Shahid MD CHEMISTRY ORDERABLES Performing Organization Address City/State/[place] [address] (ABNORMAL) BLOOD GAS 2 ARTERIAL (07/07/2017 5:31 PM EST) P athologist Signature pH Art 7.29 7.35 - [facility] (Critical) 7.45 [facility] Comment: Noted by instrumentation specialist. [...] [facility] COHB Art 0.3 % [facility] [...] Shahid MD CHEMISTRY ORDERABLES Performing Organization Address City/[facility]/ZIP Code Phon e Number [address] Fibrinogen (07/07/2017 5:30 PM EST) P athologist Signature Fibrinogen 224 180 - 510 [facility] mg/dL [facility] Comment: Called by: JEET, Read [...] Perez MD HEMATOLOGY ORDERABLES Performing Organization Address City/[facility]/ZIP [facility] Phon e Number [address] APTT (07/07/2017 5:30 PM [...] Perez MD HEMATOLOGY ORDERABLES Performing Organization Address City/[facility] [place] [address] (ABNORMAL) Prothrombin Time (07/07/2017 [...] Perez MD HEMATOLOGY ORDERABLES Performing Organization Address City/[facility] [place] [address] (ABNORMAL) Hemogram (07/07/2017 5:30 PM EST) P athologist Signature WBC 19.6 (H) 4.0 - 9.5 [facility] x10(3)/[facility] LABORATORY RBC 3.08 (L) 4.58 - [facility] 5.54 [facility] x10(6)/[facility] LABORATORY Hemoglobin 9.2 (L) 13.7 - [facility] 16.5 gm/dL [facility] Hematocrit 28.0 (L) 40.5 - [facility] 48.5 % [facility] Comment: This result has been called to MONICA MORAN by DONALD GROSSMAN on 07 07 2017 at 1759, and has been read back. MCV 90.9 82.9 - 93.1 [facility] LABORATORY MCH 29.9 27.5 - 32.1 pg [facility] LAB[facility]ATORY MCHC 32.9 32.0 - 35.7 gm/dL [facility] LABORATORY Platelets 155 145 - 357 x10(3)/[facility] LABORATORY RDWSD 46.5 (H) 36.0 - 45.0 [facility] LABORATORY RDWCV 14.1 (H) 11.4 - 13.8 % [facility] LABORATORY MPV 9.5 7.6 - 12.9 [facility] LABORATORY nRBC % Auto 0.0 % [facility] LABORATORY nRBC Abs Auto 0.000 0.000 - 0.000 x10(3)/[facility] LABORATORY Specimen Anatomical Collection Method Collection Time Receive d Time (Source) Location / / Volume Laterality Blood specimen 07/07/2017 5:30 PM 017 5:34 (specimen) EST PM EST Resulting Agency Comment Spec In Lab Yifan Perez MD HEMATOLOGY ORDERABLES Performing Organization Address City/State/[place] [address] Prepare Platelets, Apheresis (07/07/2017 5:00 PM EST) P athologist Signature Dispensed? Yes [facility] LAB[facility]ORY Specimen Anatomical Collection Method Collection Time Receive d Time (Source) Location / / Volume Laterality Blood specimen 07/07/2017 5:00 PM 017 4:58 (specimen) EST PM EST Daphne Shahid MD BLOOD BANK ORDERABLES Performing Organization Address City/State/[place] [address] Platelet count (07/07/2017 4:55 PM EST) P athologist Signature Platelets 177 145 - 357 KATALINA DAVIS x10(3)/[facility] LABORATORY Plat Immature 1.5 0.0 - 7.4 KATALINA DAVIS % % [facility] Comment: Limitation of the Immature Platelet Frac tion (IPF)-May be less reliable when the platelet count is less than 81i694/u L due to statistical imprecision. The IPF [...] in a decreased state of production. References: [employer] The Clinical Value of the Immature Platelet Fraction (IPF) in Cell Recovery Document Number 10-1143 12/2010 [employer] The Role of the Imm ature [...] Organization Address City/State/[place] [address] (ABNORMAL) Hemoglobin and Hematocrit, blood (07/07/2017 4:55 PM EST) P athologist Signature Hemoglobin 9.1 (L) 13.7 - 16.5 [facility] DAVIS gm/dL [facility] Comment: This result has been [...] Organization Address City/State/[place] [address] (ABNORMAL) BLOOD GAS 2 ARTERIAL (07/07/2017 4:38 PM EST) Analysis Performed At Patho logist Time Signature pH Art 7.37 7.35 - [facility] 7.45 [facility] pCO2 Art 44 35 - 45 [facility] mmHg [facility] pO2 Art 322 (H) 85 - 104 [facility] LABORATORY HCO3 Art 24.9 20.0 - [facility] 26.0 [facility] mmol/L [facility] LABORATORY BE Art -0.4 -3.0 - 3.0 [facility] mmol/L [facility] Hgb Blood Gas 10.1 (L) 13.7 - [facility] 16.5 gm/dL [facility] O2HB Art 98.7 (H) 94.0 - [facility] 97.0 % [facility] COHB Art 0.1 % [facility] Comment: Noted by instrumentation specialist. Note: [...] Organization Address City/State/[place] [address] (ABNORMAL) BLOOD GAS 2 VENOUS (07/07/2017 4:06 PM EST) Analysis Performed At Patho logist Time Signature pH Cody 7.31 (L) 7.32 - [facility] 7.42 [facility] pCO2 Cody 47 41 - 51 [facility] LABORATORY pO2 Cody 53 (H) 25 - 40 [facility] LABORATORY HCO3 Cody 22.7 mmol/L [facility] LABORAT[facility] BE Cody -3.7 mmol/L [facility] Hgb Blood Gas 10.2 (L) 13.7 - [facility] 16.5 gm/dL [facility] O2HB Cody 81.0 % [facility] Comment: Noted by instrumentation specialist. Note: [...] [facility] BGas Source Venous [facility] LAB[facility]ORY Specimen Anatomical Collection Method Collection Time Receive d Time (Source) Location / / Volume Laterality Blood specimen 07/07/2017 4:06 PM 017 4:06 (specimen) EST PM EST Daphne Shahid MD CHEMISTRY ORDERABLES Performing Organization Address City/State/[place] [address] (ABNORMAL) BLOOD GAS 2 ARTERIAL (07/07/2017 4:05 PM EST) Analysis Performed At Patho logist Time Signature pH Art 7.36 7.35 - [facility] 7.45 [facility] pCO2 Art 40 35 - 45 [facility] mmHg [facility] pO2 Art 282 (H) 85 - 104 [facility] LABORATORY HCO3 Art 22.1 20.0 - [facility] 26.0 [facility] mmol/L [facility] LABORATORY BE Art -3.4 (L) -3.0 - 3.0 [facility] mmol/L [facility] Hgb Blood Gas 10.2 (L) 13.7 - [facility] 16.5 gm/dL [facility] O2HB Art 98.4 (H) 94.0 - [facility] 97.0 % [facility] COHB Art 0.3 % [facility] Comment: Noted by instrumentation specialist. Note: [...] Organization Address City/State/[place] [address] (ABNORMAL) BLOOD GAS 2 ARTERIAL (07/07/2017 2:29 PM EST) Analysis Performed At Patho logist Time Signature pH Art 7.43 7.35 - [facility] 7.45 [facility] pCO2 Art 36 35 - 45 [facility] LABORATORY pO2 Art 221 (H) 85 - 104 [facility] LABORATORY HCO3 Art 23.2 20.0 - [facility] 26.0 [facility] mmol/[facility] BE Art -1.2 -3.0 - 3.0 [facility] mmol/L [facility] Hgb Blood Gas 13.9 13.7 - [facility] 16.5 gm/dL [facility] O2HB Art 97.8 (H) 94.0 - [facility] 97.0 % [facility] COHB Art 1.1 % [facility] [...] Organization Address City/State/[place] [address] Prepare Coag Factors (Non-Hemophilia) (07/07/2017 1:25 PM EST) P athologist Signature Dispensed? Yes [facility] Specimen Anatomical Collection Method Collection Time Receive d Time (Source) Location / / Volume Laterality Blood specimen 07/07/2017 1:25 PM 017 1:21 (specimen) EST PM EST Daphne Shahid MD BLOOD BANK ORDERABLES Performing Organization Address City/State/ZIP Code Phon e Number [address] Prepare RBC (07/07/2017 1:10 PM EST) P athologist Signature Dispensed? Yes [facility] Specimen Anatomical Collection Method Collection Time Receive d Time (Source) Location / / Volume Laterality Blood specimen 07/07/2017 1:10 PM 017 1:05 (specimen) EST PM EST Daphne Shahid MD BLOOD BANK ORDERABLES Performing Organization Address City/State/[place] [address] POCT Glucose (07/07/2017 11:56 AM EST) P athologist Signature POC Glucose 188 65 - 199 [facility] mg[facility]dL [facility] Comment: Supplemental ranges: <140 mg/dL before meals <180 mg/dL all other times of the day Specimen Anatomical Collection Method Collection Time Receive d Time (Source) Location / / Volume Laterality Blood specimen 07/07/2017 11:56 7 (specimen) AM EST 11:56 AM EST Daphne Shahid MD POINT OF CARE TEST ORDERABLE S Performing Organization Address City/[facility]/[place] [address] POCT Glucose (07/07/2017 11:05 AM EST) P athologist Signature POC Glucose 168 65 - 199 [facility] mg/dL [facility] Comment: Supplemental ranges: <140 mg/dL before meals <180 mg/dL all other times of the day Specimen Anatomical Collection Method Collection Time Receive d Time (Source) Location / / Volume Laterality Blood specimen 07/07/2017 11:05 7 (specimen) AM EST 11:05 AM EST Daphne Shahid MD POINT OF CARE TEST ORDERABLE S Performing Organization Address City/State/[place] [address] POCT Glucose (07/07/2017 10:02 AM EST) athologist Signature POC Glucose 191 65 - 199 KATALINA ZHAORYAN mg/dL [facility] Comment: Supplemental ranges: <140 mg/dL before meals <180 mg/dL all other times of the day Specimen Anatomical Collection Method Collection Time Receive d Time (Source) Location / / Volume Laterality Blood specimen 07/07/2017 10:02 7 (specimen) AM EST 10:02 AM EST Daphne Shahid MD POINT OF CARE TEST ORDERABLE S Performing Organization Address City/State/ZIP Code Phon e Number [address] POCT Glucose (07/07/2017 7:53 AM EST) athologist Signature POC Glucose 178 65 - 199 [facility] mg/dL [facility] Comment: Supplemental ranges: <140 mg/dL before meals <180 mg/dL all other times of the day Specimen Anatomical Collection Method Collection Time Receive d Time (Source) Location / / Volume Laterality Blood specimen 07/07/2017 7:53 AM 017 7:53 (specimen) EST AM EST Daphne Shahid MD POINT OF CARE TEST ORDERABLE S Performing Organization Address City/State/[place] [address] POCT Glucose (07/07/2017 7:03 AM EST) athologist Signature POC Glucose 188 65 - 199 [facility] mg/dL [facility] Comment: Supplemental ranges: <140 mg/dL before meals <180 mg/dL all other times of the day Specimen Anatomical Collection Method Collection Time Receive d Time (Source) Location / / Volume Laterality Blood specimen 07/07/2017 7:03 AM 017 7:03 (specimen) EST AM EST Daphne Shahid MD POINT OF CARE TEST ORDERABLE S Performing Organization Address City/State/[place] [address] (ABNORMAL) POCT Glucose (07/07/2017 6:17 AM EST) athologist Signature POC Glucose 207 (H) 65 - 199 [facility] mg/dL [facility] Comment: Supplemental ranges: <140 mg/dL before meals <180 mg/dL all other times of the day Specimen Anatomical Collection Method Collection Time Receive d Time (Source) Location / / Volume Laterality Blood specimen 07/07/2017 6:17 AM 017 6:17 (specimen) EST AM EST Daphne Shahid MD POINT OF CARE TEST ORDERABLE S Performing Organization Address City/State/ZIP Code Phon e Number [place] [id number] HOSPITAL LABORATORY Drive Differential, Automated (07/07/2017 5:15 AM EST) [facility] Neutrophils % 69.7 % [facility] LABORATORY Neutr Abs (ANC) 5.32 1.70 - [facility] 6.10 [facility] x10(3)/[facility] LABORATORY Lymphocytes % 16.3 % [facility] LABORATORY Lymphocytes Abs 1.2 0.9 - 3.2 [facility] x10(3)/[facility] LABORATORY Monocytes % 10.5 % [facility] LABORATORY Monocyte Abs 0.8 0.3 - 0.9 [facility] x10(3)[facility] LABORATORY Eosinophils % 2.5 % [facility] LABORATORY Eosinophils Abs 0.2 0.0 - 0.4 [facility] x10(3)/[facility] LABORATORY Basophils % 0.7 % [facility] LABORATORY Basophils Abs 0.0 0.0 - 0.1 [facility] x10(3)/[facility] LABORATORY Immature Gran % 0.30 % [facility] [...] - 0.04 x10(3)/[facility] LABORATORY Specimen Anatomical Collection Method Collection Time Receive d Time (Source) Location / / Volume Laterality Blood specimen 07/07/2017 5:15 AM 017 5:34 (specimen) EST AM EST Resulting Agency Comment Spec In Lab Daphne Shahid MD HEMATOLOGY ORDERABLES Performing Organization Address City/[facility]/[place] [address] (ABNORMAL) Hemogram (07/07/2017 5:15 AM EST) Analysis Performed At Patho logist Time Signature WBC 7.6 4.0 - 9.5 [facility] x10(3)/[facility] LABORATORY RBC 4.82 4.58 - [facility] 5.54 [facility] x10(6)/[facility] LABORATORY Hemoglobin 14.4 13.7 - [facility] 16.5 gm/dL [facility] Hematocrit 42.1 40.5 - [facility] 48.5 % [facility] MCV 87.3 82.9 - [facility] LABORATORY MCH 29.9 27.5 - [facility] 32.1 pg [facility] MCHC 34.2 32.0 - [facility] 35.7 gm/dL [facility] Platelets 188 145 - 357 [facility] x10(3)/[facility] LABORATORY RDWSD 45.1 (H) 36.0 - [facility] 45.[address] [facility] LABORATORY RDWCV 14.3 (H) 11.4 - [facility] 13.8 % [facility] LABORATORY MPV 9.4 7.6 - 12.9 [facility] LABORATORY nRBC % Auto 0.0 % [facility] LABORATORY nRBC Abs Auto 0.000 0.000 - [facility] 0.000 [facility] x10(3)/[facility] LABORATORY Specimen Anatomical Collection Method Collection Time Receive d Time (Source) Location / / Volume Laterality Blood specimen 07/07/2017 5:15 AM 017 5:34 (specimen) EST AM EST Resulting Agency Comment Spec In Lab Daphne Shahid MD HEMATOLOGY ORDERABLES Performing Organization Address City/State/[place] [address] (ABNORMAL) APTT (07/07/2017 5:15 [...] Shahid MD HEMATOLOGY ORDERABLES Performing Organization Address City/[facility]/[place] [address] Magnesium (07/07/2017 5:15 AM EST) athologist Signature Magnesium 0.94 0.69 - 1.07 [facility] mmol/L [facility] Specimen Anatomical Collection Method Collection Time Receive d Time (Source) Location / / Volume Laterality Blood specimen 07/07/2017 5:15 AM 017 5:34 (specimen) EST AM EST Resulting Agency Comment Spec In Lab Daphne Shahid MD CHEMISTRY ORDERABLES Performing Organization Address City/[facility]/[place] [address] (ABNORMAL) Basic Metabolic Panel (non-fasting) (07/07/2017 5:15 AM EST) P athologist Signature Glucose Lvl 203 (H) 65 - 199 [facility] mg/dL [facility] Comment: [...] or in patients with acute kidney failure. [email or web address] [email or web address] Specimen Anatomical Collection Method Collection Time Receive d Time (Source) Location / / Volume Laterality Blood specimen 07/07/2017 5:15 AM 017 5:34 (specimen) EST AM EST Resulting Agency Comment Spec In Lab Daphne Shahid MD CHEMISTRY ORDERABLES Performing Organization Address City/State/[place] [address] (ABNORMAL) Cardiac Enzymes (LEB/CGP) (07/07/2017 5:15 AM EST) P athologist Signature Troponin-T 2.07 (H) 0.00 - [facility] 0.00 ng/mL [facility] Comment: The 99th percentile for [...] additional sample may be indicated. Reference: Third [place] Definition of Myocardial Infarction. Journal of the [place] [employer] 2012;60:1581-98 CK, Total 88 0 - 200 unit/L [facility] LABORATORY Specimen Anatomical Collection Method Collection Time Receive d Time (Source) Location / / Volume Laterality Blood specimen 07/07/2017 5:15 AM 017 5:34 (specimen) EST AM EST Resulting Agency Comment Spec In Lab Daphne Shahid MD CHEMISTRY ORDERABLES Performing Organization Address City/[facility]/ZIP Code Phon e Number [address] POCT Glucose (07/07/2017 5:01 AM EST) athologist Signature POC Glucose 182 65 - 199 [facility] mg/dL [facility] Comment: Supplemental ranges: <140 mg/dL before meals <180 mg/dL all other times of the day Specimen Anatomical Collection Method Collection Time Receive d Time (Source) Location / / Volume Laterality Blood specimen 07/07/2017 5:01 AM 017 5:01 (specimen) EST AM EST Daphne Shahid MD POINT OF CARE TEST ORDERABLE S Performing Organization Address City/[facility]/ZIP [facility] Phon e Number [address] POCT Glucose (07/07/2017 4:08 AM EST) athologist Signature POC Glucose 199 65 - 199 [facility] mg/dL [facility] Comment: Supplemental ranges: <140 mg/dL before meals <180 mg/dL all other times of the day Specimen Anatomical Collection Method Collection Time Receive d Time (Source) Location / / Volume Laterality Blood specimen 07/07/2017 4:08 AM 017 4:08 (specimen) EST AM EST Daphne Shahid MD POINT OF CARE TEST ORDERABLE S Performing Organization Address City/State/ZIP Code Phon e Number [address] POCT Glucose (07/07/2017 3:03 AM EST) athologist Signature POC Glucose 188 65 - 199 KATALINA RYAN mg/dL [facility] Comment: Supplemental ranges: <140 mg/dL before meals <180 mg/dL all other times of the day Specimen Anatomical Collection Method Collection Time Receive d Time (Source) Location / / Volume Laterality Blood specimen 07/07/2017 3:03 AM 017 3:03 (specimen) EST AM EST Daphne Shahid MD POINT OF CARE TEST ORDERABLE S Performing Organization Address City/State/[place] [address] (ABNORMAL) POCT Glucose (07/07/2017 2:08 AM EST) athologist Signature POC Glucose 200 (H) 65 - 199 K[place]ALINA RYAN mg/dL [facility] [facility] Comment: Supplemental ranges: <140 mg/dL before meals <180 mg/dL all other times of the day Specimen Anatomical Collection Method Collection Time Receive d Time (Source) Location / / Volume Laterality Blood specimen 07/07/2017 2:08 AM 017 2:08 (specimen) EST AM EST Daphne Shahid MD POINT OF CARE TEST ORDERABLE S Performing Organization Address City/State/ZIP Code Phon e Number [address] (ABNORMAL) POCT Glucose (07/07/2017 1:31 AM EST) athologist Signature POC Glucose 209 (H) 65 - 199 [place] mg/dL [facility] Comment: Supplemental ranges: <140 mg/dL before meals <180 mg/dL all other times of the day Specimen Anatomical Collection Method Collection Time Receive d Time (Source) Location / / Volume Laterality Blood specimen 07/07/2017 1:31 AM 017 1:31 (specimen) EST AM EST Daphne Shahid MD POINT OF CARE TEST ORDERABLE S Performing Organization Address City/State/[place] [address] XR Chest PA or [...] [facility] mg/dL [facility] Comment: Supplemental ranges: <140 mg/dL before meals <180 mg/dL all other times of the day Specimen Anatomical Collection Method Collection Time Receive d Time (Source) Location / / Volume Laterality Blood specimen 07/07/2017 12:07 7 (specimen) AM EST 12:07 AM EST Daphne Shahid MD POINT OF CARE TEST ORDERABLE S Performing Organization Address City/State/[place] [address] (ABNORMAL) APTT (07/07/2017 12:00 [...] Shahid MD HEMATOLOGY ORDERABLES Performing Organization Address City/[facility]/[place] [address] POCT Glucose (07/06/2017 9:55 PM EST) athologist Signature POC Glucose 109 65 - 199 [facility]dL [facility] Comment: Supplemental ranges: <140 mg/dL before meals <180 mg/dL all other times of the day Specimen Anatomical Collection Method Collection Time Receive d Time (Source) Location / / Volume Laterality Blood specimen 07/06/2017 9:55 PM 017 9:55 (specimen) EST PM EST Daphne Shahid MD POINT OF CARE TEST ORDERABLE S Performing Organization Address City/[facility]/[place] [address] POCT Glucose (07/06/2017 9:04 PM EST) athologist Signature POC Glucose 120 65 - 199 [facility] [place] mg/dL [facility] Comment: Supplemental ranges: <140 mg/dL before meals <180 mg/dL all other times of the day Specimen Anatomical Collection Method Collection Time Receive d Time (Source) Location / / Volume Laterality Blood specimen 07/06/2017 9:04 PM 017 9:04 (specimen) EST PM EST Daphne Shahid MD POINT OF CARE TEST ORDERABLE S Performing Organization Address City/[facility]/[place] [address] POCT Glucose (07/06/2017 7:45 PM EST) athologist Signature POC Glucose 158 65 - 199 [facility] mg/dL [facility] Comment: Supplemental ranges: <140 mg/dL before meals <180 mg/dL all other times of the day Specimen Anatomical Collection Method Collection Time Receive d Time (Source) Location / / Volume Laterality Blood specimen 07/06/2017 7:45 PM 017 7:45 (specimen) EST PM EST Daphne Shahid MD POINT OF CARE TEST ORDERABLE S Performing Organization Address City/[facility]/[place] [address] Potassium (07/06/2017 7:40 PM EST) athologist Signature Potassium 3.9 3.5 - 5.0 [facility] mmol/L [facility] Comment: Please note: ??Patients with [...] Shahid MD CHEMISTRY ORDERABLES Performing Organization Address City/[facility]/[place] [address] (ABNORMAL) Cardiac Enzymes (LEB/CGP) (07/06/2017 7:40 PM EST) athologist Signature Troponin-T 2.27 (H) 0.00 - [place] 0.00 ng/mL [facility] Comment: The 99th percentile for [...] additional sample may be indicated. Reference: Third [place] Definition of Myocardial Infarction. Journal of the [place] [employer] 2012;60:1581-98 CK, Total 93 0 - 200 unit/L [facility] Specimen Anatomical Collection Method Collection Time Receive d Time (Source) Location / / Volume Laterality Blood specimen 07/06/2017 7:40 PM 017 7:52 (specimen) EST PM EST Resulting Agency Comment Spec In Lab Daphne Shahid MD CHEMISTRY ORDERABLES Performing Organization Address City/State/[place] [address] (ABNORMAL) POCT Glucose (07/06/2017 7:13 PM EST) athologist Signature POC Glucose 200 (H) 65 - 199 [facility] Comment: Supplemental ranges: <140 mg/dL before meals <180 mg/dL all other times of the day Specimen Anatomical Collection Method Collection Time Receive d Time (Source) Location / / Volume Laterality Blood specimen 07/06/2017 7:13 PM 017 7:13 (specimen) EST PM EST Daphne Shahid MD POINT OF CARE TEST ORDERABLE S Performing Organization Address City/[facility]/[place] [address] (ABNORMAL) APTT (07/06/2017 6:15 [...] Shahid MD HEMATOLOGY ORDERABLES Performing Organization Address City/[facility]/[place] [address] (ABNORMAL) POCT Glucose (07/06/2017 6:03 PM EST) athologist Signature POC Glucose 236 (H) 65 - 199 [facility] mg/dL [facility] Comment: Supplemental ranges: <140 mg/dL before meals <180 mg/dL all other times of the day Specimen Anatomical Collection Method Collection Time Receive d Time (Source) Location / / Volume Laterality Blood specimen 07/06/2017 6:03 PM 017 6:03 (specimen) EST PM EST Daphne Shahid MD POINT OF CARE TEST ORDERABLE S Performing Organization Address City/[facility]/[place] [address] (ABNORMAL) POCT Glucose (07/06/2017 5:01 PM EST) athologist Signature POC Glucose 235 (H) 65 - 199 [facility] [place] mg/dL [facility] Comment: Supplemental ranges: <140 mg/dL before meals <180 mg/dL all other times of the day Specimen Anatomical Collection Method Collection Time Receive d Time (Source) Location / / Volume Laterality Blood specimen 07/06/2017 5:01 PM 017 5:01 (specimen) EST PM EST Daphne Shahid MD POINT OF CARE TEST ORDERABLE S Performing Organization Address City/State/[place] [address] (ABNORMAL) POCT Glucose (07/06/2017 4:06 PM EST) athologist Signature POC Glucose 202 (H) 65 - 199 [place] mg/dL [facility] Comment: Supplemental ranges: <140 mg/dL before meals <180 mg/dL all other times of the day Specimen Anatomical Collection Method Collection Time Receive d Time (Source) Location / / Volume Laterality Blood specimen 07/06/2017 4:06 PM 017 4:06 (specimen) EST PM EST Daphne Shahid MD POINT OF CARE TEST ORDERABLE S Performing Organization Address City/State/[place] [address] POCT Glucose (07/06/2017 2:59 PM EST) athologist Signature POC Glucose 178 65 - 199 [place] mg/dL [facility] Comment: Supplemental ranges: <140 mg/dL before meals <180 mg/dL all other times of the day Specimen Anatomical Collection Method Collection Time Receive d Time (Source) Location / / Volume Laterality Blood specimen 07/06/2017 2:59 PM 017 2:59 (specimen) EST PM EST Daphne Shahid MD POINT OF CARE TEST ORDERABLE S Performing Organization Address City/State/[place] [address] (ABNORMAL) Cardiac Enzymes (LEB/CGP) (07/06/2017 2:10 PM EST) athologist Signature Troponin-T 2.34 (H) 0.00 - [facility] 0.00 ng/mL [facility] Comment: The 99th percentile for [...] additional sample may be indicated. Reference: Third [place] Definition of Myocardial Infarction. Journal of the [employer] 2012;60:1581-98 CK, Total 101 0 - 200 unit/L [facility] Specimen Anatomical Collection Method Collection Time Receive d Time (Source) Location / / Volume Laterality Blood specimen 07/06/2017 2:10 PM 017 2:26 (specimen) EST PM EST Resulting Agency Comment Spec In Lab Daphne Shahid MD CHEMISTRY ORDERABLES Performing Organization Address City/State/[place] [address] POCT Glucose (07/06/2017 2:08 PM EST) P athologist Signature POC Glucose 192 65 - 199 [facility] mg/dL [facility] Comment: Supplemental ranges: <140 mg/dL before meals <180 mg/dL all other times of the day Specimen Anatomical Collection Method Collection Time Receive d Time (Source) Location / / Volume Laterality Blood specimen 07/06/2017 2:08 PM 017 2:08 (specimen) EST PM EST Daphne Shahid MD POINT OF CARE TEST ORDERABLE S Performing Organization Address City/State/ZIP Code Phon e Number [address] POCT Glucose (07/06/2017 1:04 PM EST) P athologist Signature POC Glucose 162 65 - 199 [facility] mg/dL [facility] Comment: Supplemental ranges: <140 mg/dL before meals <180 mg/dL all other times of the day Specimen Anatomical Collection Method Collection Time Receive d Time (Source) Location / / Volume Laterality Blood specimen 07/06/2017 1:04 PM 017 1:04 (specimen) EST PM EST Daphne Shahid MD POINT OF CARE TEST ORDERABLE S Performing Organization Address City/[facility]/ZIP Code Phon e Number [address] POCT Glucose (07/06/2017 12:05 PM EST) athologist Signature POC Glucose 196 65 - 199 [facility] mg/dL [facility] Comment: Supplemental ranges: <140 mg/dL before meals <180 mg/dL all other times of the day Specimen Anatomical Collection Method Collection Time Receive d Time (Source) Location / / Volume Laterality Blood specimen 07/06/2017 12:05 7 (specimen) PM EST 12:05 PM EST Daphne Shahid MD POINT OF CARE TEST ORDERABLE S Performing Organization Address City/State/[place] [address] EKG 12 Lead (07/06/2017 12:00 PM EST) Component Value Ref Range Test Analysis Performed Pathologis t Method Time At Signature Ventricular rate 91 BPM MUSE SYSTEM Atrial Rate 91 BPM MUSE SYSTEM P-R Interval 140 ms MUSE SYSTEM QRS Duration 94 ms MUSE SYSTEM Q-T Interval 394 ms MUSE SYSTEM QTC Calculated 484 ms MUSE SYSTEM (Bezet) Calculated P Ruther[place] 36 degrees MUSE SYSTEM Calculated R Ruther[place] -19 degrees MUSE SYSTEM Calculated T R[place] 104 degrees MUSE SYSTEM INTERPRETATION Normal sinus rhythm MUSE SYSTEM 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) ST & T wave abnormality, consider lateral ischemia Abnormal ECG When compared with ECG of 05-JUL-2017 20:39, No significant change was found Confirmed by MD Verma Gregory A. ([id number]) on 07/06/2017 5:07:33 PM Specimen Anatomical Collection [...] [facility] [address] Antibody screen (07/06/2017 12:00 PM EST) [facility] Method Time Signature Ab Screen Negative [facility] LABORATORY Expires at 07/09/2017 [facility] 235 on: [facility] Specimen Anatomical Collection Method Collection Time Receive d Time (Source) Location / / Volume Laterality Blood specimen 07/06/2017 12:00 7 (specimen) PM EST 12:24 PM EST Resulting Agency Comment Spec In Lab Daphne Shahid MD BLOOD BANK ORDERABLES Performing Organization Address City/[facility]/[place] [address] ABO/Rh Typing (07/06/2017 12:00 [...] Organization Address City/State/[place] [address] Prothrombin Time (07/06/2017 11:24 AM EST) athologist Signature PT 13.3 11.8 - 14.0 [facility] LABORATORY INR 1.0 0.9 - 1.1 [facility] [...] Shahid MD HEMATOLOGY ORDERABLES Performing Organization Address City/[facility]/[place] [address] (ABNORMAL) APTT (07/06/2017 11:24 [...] Organization Address City/State/[place] [address] POCT Glucose (07/06/2017 11:02 AM EST) athologist Signature POC Glucose 187 65 - 199 [facility] [place] mg/dL [facility] Comment: Supplemental ranges: <140 mg/dL before meals <180 mg/dL all other times of the day Specimen Anatomical Collection Method Collection Time Receive d Time (Source) Location / / Volume Laterality Blood specimen 07/06/2017 11:02 7 (specimen) AM EST 11:02 AM EST Daphne Shahid MD POINT OF CARE TEST ORDERABLE S Performing Organization Address City/State/ZIP Code Phon e Number [address] POCT Glucose (07/06/2017 10:18 AM EST) athologist Signature POC Glucose 193 65 - 199 [facility] [place] mg/dL [facility] Comment: Supplemental ranges: <140 mg/dL before meals <180 mg/dL all other times of the day Specimen Anatomical Collection Method Collection Time Receive d Time (Source) Location / / Volume Laterality Blood specimen 07/06/2017 10:18 7 (specimen) AM EST 10:18 AM EST Daphne Shahid MD POINT OF CARE TEST ORDERABLE S Performing Organization Address City/State/ZIP Code Phon e Number [address] POCT Glucose (07/06/2017 9:25 AM EST) athologist Signature POC Glucose 182 65 - 199 [place] mg/dL [facility] Comment: Supplemental ranges: <140 mg/dL before meals <180 mg/dL all other times of the day Specimen Anatomical Collection Method Collection Time Receive d Time (Source) Location / / Volume Laterality Blood specimen 07/06/2017 9:25 AM 017 9:25 (specimen) EST AM EST Daphne Shahid MD POINT OF CARE TEST ORDERABLE S Performing Organization Address City/State/[place] [address] (ABNORMAL) Cardiac Enzymes (LEB/CGP) (07/06/2017 8:10 AM EST) athologist Signature Troponin-T 2.26 (H) 0.00 - [facility] 0.00 ng/mL [facility] Comment: The 99th percentile for [...] additional sample may be indicated. Reference: Third [place] Definition of Myocardial Infarction. Journal of the [employer] 2012;60:1581-98 CK, Total 124 0 - 200 unit/L [facility] Specimen Anatomical Collection Method Collection Time Receive d Time (Source) Location / / Volume Laterality Blood specimen 07/06/2017 8:10 AM 017 8:23 (specimen) EST AM EST Resulting Agency Comment Spec In Lab Daphne Shahid MD CHEMISTRY ORDERABLES Performing Organization Address City/State/[place] [address] Magnesium (07/06/2017 8:10 AM EST) athologist Signature Magnesium 0.84 0.69 - 1.07 [facility] mmol/L [facility] Specimen Anatomical Collection Method Collection Time Receive d Time (Source) Location / / Volume Laterality Blood specimen 07/06/2017 8:10 AM 017 8:21 (specimen) EST AM EST Resulting Agency Comment Spec In Lab Daphne Shahid MD CHEMISTRY ORDERABLES Performing Organization Address City/[facility]/[place] [address] (ABNORMAL) Basic Metabolic Panel (non-fasting) (07/06/2017 8:10 AM EST) P athologist Signature Glucose Lvl 199 65 - 199 [facility] mg/dL [facility] Comment: [...] or in patients with acute kidney failure. [email or web address] Specimen Anatomical Collection Method Collection Time Receive d Time (Source) Location / / Volume Laterality Blood specimen 07/06/2017 8:10 AM 017 8:21 (specimen) EST AM EST Resulting Agency Comment Spec In Lab Daphne Shahid MD CHEMISTRY ORDERABLES Performing Organization Address City/[facility]/[place] [address] POCT Glucose (07/06/2017 7:34 AM EST) P athologist Signature POC Glucose 198 65 - 199 [facility] mg/dL [facility] Comment: Supplemental ranges: <140 mg/dL before meals <180 mg/dL all other times of the day Specimen Anatomical Collection Method Collection Time Receive d Time (Source) Location / / Volume Laterality Blood specimen 07/06/2017 7:34 AM 017 7:34 (specimen) EST AM EST Daphne Shahid MD POINT OF CARE TEST ORDERABLE S Performing Organization Address City/State/ZIP Code Phon e Number [address] POCT Glucose (07/06/2017 7:03 AM EST) athologist Signature POC Glucose 181 65 - 199 [facility] mg/dL [facility] Comment: Supplemental ranges: <140 mg/dL before meals <180 mg/dL all other times of the day Specimen Anatomical Collection Method Collection Time Receive d Time (Source) Location / / Volume Laterality Blood specimen 07/06/2017 7:03 AM 017 7:03 (specimen) EST AM EST Daphne Shahid MD POINT OF CARE TEST ORDERABLE S Performing Organization Address City/State/[place] [address] XR Chest PA or [...] [facility] mg/dL [facility] Comment: Supplemental ranges: <140 mg/dL before meals <180 mg/dL all other times of the day Specimen Anatomical Collection Method Collection Time Receive d Time (Source) Location / / Volume Laterality Blood specimen 07/06/2017 6:21 AM 017 6:21 (specimen) EST AM EST Daphne Shahid MD POINT OF CARE TEST ORDERABLE S Performing Organization Address City/State/[place] [address] POCT Glucose (07/06/2017 5:08 AM EST) athologist Signature POC Glucose 154 65 - 199 [facility] mg/dL [facility] Comment: Supplemental ranges: <140 mg/dL before meals <180 mg/dL all other times of the day Specimen Anatomical Collection Method Collection Time Receive d Time (Source) Location / / Volume Laterality Blood specimen 07/06/2017 5:08 AM 017 5:08 (specimen) EST AM EST Daphne Shahid MD POINT OF CARE TEST ORDERABLE S Performing Organization Address City/State/ZIP Code Phon e Number [address] POCT Glucose (07/06/2017 4:05 AM EST) athologist Signature POC Glucose 142 65 - 199 [facility] mg/dL [facility] Comment: Supplemental ranges: <140 mg/dL before meals <180 mg/dL all other times of the day Specimen Anatomical Collection Method Collection Time Receive d Time (Source) Location / / Volume Laterality Blood specimen 07/06/2017 4:05 AM 017 4:05 (specimen) EST AM EST Daphne Shahid MD POINT OF CARE TEST ORDERABLE S Performing Organization Address City/[facility]/ZIP Code Phon e Number [address] POCT Glucose (07/06/2017 3:00 AM EST) athologist Signature POC Glucose 116 65 - 199 [facility] mg/dL [facility] Comment: Supplemental ranges: <140 mg/dL before meals <180 mg/dL all other times of the day Specimen Anatomical Collection Method Collection Time Receive d Time (Source) Location / / Volume Laterality Blood specimen 07/06/2017 3:00 AM 017 3:00 (specimen) EST AM EST Daphne Shahid MD POINT OF CARE TEST ORDERABLE S Performing Organization Address City/State/ZIP Code Phon e Number [address] Potassium (07/06/2017 2:20 AM EST) athologist Signature Potassium 3.9 3.5 - 5.0 [facility] mmol/L [facility] Comment: Please note: ??Patients with [...] Organization Address City/State/[place] [address] Differential, Automated (07/06/2017 2:20 AM EST) athologist Signature Neutrophils % 72.9 % [facility] Neutr Abs (ANC) 5.53 1.70 - [facility] 6.10 [facility] x10(3)[facility] LABORATORY Lymphocytes % 16.4 % [facility] Lymphocytes Abs 1.2 0.9 - 3.2 [facility] x10(3)/[facility] LABORATORY Monocytes % 9.4 % [facility] Monocyte Abs 0.7 0.3 - 0.9 [facility] x10(3)/[facility] LABORATORY Eosinophils % 0.5 % [facility] Eosinophils Abs 0.0 0.0 - 0.4 [facility] x10(3)[facility] LABORATORY Basophils % 0.4 % [facility] Basophils Abs 0.0 0.0 - 0.1 [facility] x10(3)/[facility] LABORATORY Immature Gran % 0.40 % [facility] Comment: Immature granulocytes(IG's)percentage an d absolute count will include metamyelocytes, myelocytes, and promyelo cytes. Blood smears from CBCs yielding IG's will be scanned manually for concor dance. If this scan disagrees with the automated IG or if promyelocytes are not ed, a manual differential will be performed. Melisa Gran Abs 0.03 0.00 - 0.04 x10(3)/[facility] Y [facility] LABORATORY Specimen Anatomical Collection Method Collection Time Receive d Time (Source) Location / / Volume Laterality Blood specimen 07/06/2017 2:20 AM 017 2:33 (specimen) EST AM EST Resulting Agency Comment Spec In Lab Daphne Shahid MD HEMATOLOGY ORDERABLES Performing Organization Address City/State/[place] [address] (ABNORMAL) Hemogram (07/06/2017 2:20 AM EST) Analysis Performed At Patho logist Time Signature WBC 7.6 4.0 - 9.5 [facility] x10(3)/[facility] LABORATORY RBC 4.52 (L) 4.58 - [facility] [place] 5.54 [facility] x10(6)/[facility] LABORATORY Hemoglobin 13.4 (L) 13.7 - [facility] 16.5 gm/dL [facility] Hematocrit 39.7 (L) 40.5 - [facility] 48.5 % [facility] MCV 87.8 82.9 - [facility] [address] [facility] LABORATORY MCH 29.6 27.5 - [place] 32.1 pg [facility] MCHC 33.8 32.0 - [facility] 35.7 gm/dL [facility] Platelets 189 145 - 357 [facility] x10(3)/[facility] LABORATORY RDWSD 45.6 (H) 36.0 - [facility] [address] [facility] LABORATORY RDWCV 14.3 (H) 11.4 - [facility] 13.8 % [facility] MPV 9.1 7.6 - 12.9 [facility] nRBC % Auto 0.0 % [facility] nRBC Abs Auto 0.000 0.000 - [place] Wishberg 0.000 [facility] x10(3)/[facility] LABORATORY Specimen Anatomical Collection Method Collection Time Receive d Time (Source) Location / / Volume Laterality Blood specimen 07/06/2017 2:20 AM 017 2:33 (specimen) EST AM EST Resulting Agency Comment Spec In Lab Daphne Shahid MD HEMATOLOGY ORDERABLES Performing Organization Address City/State/ZIP [place] [address] (ABNORMAL) APTT (07/06/2017 2:20 [...] Organization Address City/State/[place] [address] POCT Glucose (07/06/2017 2:20 AM EST) athologist Signature POC Glucose 115 65 - 199 [facility] mg/dL [facility] Comment: Supplemental ranges: <140 mg/dL before meals <180 mg/dL all other times of the day Specimen Anatomical Collection Method Collection Time Receive d Time (Source) Location / / Volume Laterality Blood specimen 07/06/2017 2:20 AM 017 2:20 (specimen) EST AM EST Daphne Shahid MD POINT OF CARE TEST ORDERABLE S Performing Organization Address City/State/[place] [address] (ABNORMAL) Cardiac Enzymes (LEB/CGP) (07/06/2017 2:20 AM EST) athologist Signature Troponin-T 2.13 (H) 0.00 - [facility] 0.00 ng/mL [facility] Comment: The 99th percentile for [...] additional sample may be indicated. Reference: Third Hays Definition of Myocardial Infarction. Journal of the [place] College of Cardiology 2012;60:1581-98 CK, Total 129 0 - 200 unit/L [facility] LABORATORY Specimen Anatomical Collection Method Collection Time Receive d Time (Source) Location / / Volume Laterality Blood specimen 07/06/2017 2:20 AM 017 2:33 (specimen) EST AM EST Resulting Agency Comment Spec In Lab Daphne Shahid MD CHEMISTRY ORDERABLES Performing Organization Address City/State/[place] [address] (ABNORMAL) Hemoglobin A1c (07/06/2017 [...] into estimated average glucose values. ??Diabetes Care 2008:31(8):3232-8426. Specimen Anatomical Collection Method Collection Time Receive d Time (Source) Location / / Volume Laterality Blood specimen 07/06/2017 2:20 AM 017 2:34 (specimen) EST AM EST Resulting Agency Comment Spec In Lab Daphne Shahid MD CHEMISTRY ORDERABLES Performing Organization Address City/State/[place] [address] (ABNORMAL) Lipid Panel (07/06/2017 2:20 AM EST) [facility] Method Time Signature Chol, Total 150 <=239 [place] mg/dL [facility] Triglycerides 129 <=199 [place] mg/dL [facility] HDL 32 (L) >=40 [place] mg/dL [facility] LDL Cholesterol 92 <=190 [place] mg/dL [facility] Chol/HDL Ratio 4.7 ratio [place] [facility] Lipid See Note [place] Hernandes [facility] Comment: Lipid management should be guided by a p atient? s ASCVD risk, goals and preferences. ACC/AHA Guidelines recommend high intens ity statin if clinical ASCVD or LDL greater than or equal to 190 mg/dL. [email or web address]/ORB-YGZ-Qmqlsuawb Adults aged 40-75 with LDL 70-189 mg/dL should have their 10 year ASCVD risk estimated with the ACC/AHA ASCVD risk es timator http://tools.acc.org/FBZEK-Tviw-Xmvupzhl r/ Statin should be discussed if risk [...] Organization Address City/State/[place] [address] POCT Glucose (07/06/2017 1:09 AM EST) P athologist Signature POC Glucose 121 65 - 199 [facility] mg/dL [facility] Comment: Supplemental ranges: <140 mg/dL before meals <180 mg/dL all other times of the day Specimen Anatomical Collection Method Collection Time Receive d Time (Source) Location / / Volume Laterality Blood specimen 07/06/2017 1:09 AM 017 1:09 (specimen) EST AM EST Daphne Shahid MD POINT OF CARE TEST ORDERABLE S Performing Organization Address City/State/ZIP Code [place] [address] POCT Glucose (07/06/2017 12:06 AM EST) athologist Signature POC Glucose 147 65 - 199 [facility] mg[facility]dL [facility] Comment: Supplemental ranges: <140 mg/dL before meals <180 mg/dL all other times of the day Specimen Anatomical Collection Method Collection Time Receive d Time (Source) Location / / Volume Laterality Blood specimen 07/06/2017 12:06 7 (specimen) AM EST 12:06 AM EST Daphne Shahid MD POINT OF CARE TEST ORDERABLE S Performing Organization Address City/State/[place] [address] (ABNORMAL) POCT Glucose (07/05/2017 10:56 PM EST) athologist Signature POC Glucose 200 (H) 65 - 199 [facility] mg/dL [facility] Comment: Supplemental ranges: <140 mg/dL before meals <180 mg/dL all other times of the day Specimen Anatomical Collection Method Collection Time Receive d Time (Source) Location / / Volume Laterality Blood specimen 07/05/2017 10:56 7 (specimen) PM EST 10:56 PM EST Daphne Shahid MD POINT OF CARE TEST ORDERABLE S Performing Organization Address City/State/[place] [address] (ABNORMAL) POCT Glucose (07/05/2017 10:05 PM EST) athologist Signature POC Glucose 225 (H) 65 - 199 [facility] mg/dL [facility] Comment: Supplemental ranges: <140 mg/dL before meals <180 mg/dL all other times of the day Specimen Anatomical Collection Method Collection Time Receive d Time (Source) Location / / Volume Laterality Blood specimen 07/05/2017 10:05 7 (specimen) PM EST 10:05 PM EST Daphne Shahid MD POINT OF CARE TEST ORDERABLE S Performing Organization Address City/State/[place] [address] (ABNORMAL) POCT Glucose (07/05/2017 9:02 PM EST) P athologist Signature POC Glucose 301 (H) 65 - 199 [place] mg/dL [facility] Comment: Supplemental ranges: <140 mg/dL before meals <180 mg/dL all other times of the day Specimen Anatomical Collection Method Collection Time Receive d Time (Source) Location / / Volume Laterality Blood specimen 07/05/2017 9:02 PM 017 9:02 (specimen) EST PM EST Daphne Shahid MD POINT OF CARE TEST ORDERABLE S Performing Organization Address City/State/ZIP Code Phon e Number [facility] [address] XR Chest PA or [...] 474 ms MUSE SYSTEM (Bezet) Calculated P [place]uther[place] 50 degrees MUSE SYSTEM Calculated R [place] -28 degrees MUSE SYSTEM Calculated T [place] 90 degrees MUSE SYSTEM INTERPRETATION Sinus tachycardia [...] (ABNORMAL) Differential, Automated (07/05/2017 8:20 PM EST) [facility] gist Method Time Signature Neutrophils % 88.4 % [facility] Neutr Abs (ANC) 9.08 (H) 1.70 - [facility] 6.10 [facility] x10(3)/[facility] L LABORATORY Lymphocytes % 7.0 % [facility]OR[facility]ORY Lymphocytes Abs 0.7 (L) 0.9 - 3.2 [facility] x10(3)/[facility] LABORATORY Monocytes % 3.7 % [facility] LABORATORY Monocyte Abs 0.4 0.3 - 0.9 [facility] x10(3)/[facility] LABORATORY Eosinophils % 0.1 % [facility]ORY Eosinophils Abs 0.0 0.0 - 0.4 [facility] x10(3)/[facility] LABORATORY Basophils % 0.2 % [facility] LAB[facility]ORY Basophils Abs 0.0 0.0 - 0.1 [facility] x10(3)/[facility] LABORATORY Immature Gran [...] Organization Address City/State/[place] [address] (ABNORMAL) Hemogram (07/05/2017 8:20 PM EST) Analysis Performed At Patho logist Time Signature WBC 10.3 (H) 4.0 - 9.5 [facility] x10(3)/[facility] LABORATORY RBC 4.64 4.58 - [facility] [place] 5.54 [facility] x10(6)/[facility] LABORATORY Hemoglobin 14.1 13.7 - [facility] 16.5 gm/dL [facility] Hematocrit 40.8 40.5 - [place] 48.5 % [facility] MCV 87.9 82.9 - [facility] [address] [facility] LABORATORY MCH 30.4 27.5 - [place] 32.1 pg [facility] MCHC 34.6 32.0 - [facility] 35.7 gm/dL [facility] Platelets 204 145 - 357 [facility] x10(3)/[facility] LABORATORY RDWSD 46.1 (H) 36.0 - [place] [address] [facility] LABORATORY RDWCV 14.5 (H) 11.4 - [facility] 13.8 % [facility] LABORATORY MPV 9.7 7.6 - 12.9 [facility] LABORATORY nRBC % Auto 0.0 % [facility] LABORATORY nRBC Abs Auto 0.000 0.000 - [place] 0.000 [facility] x10(3)/[facility] LABORATORY Specimen Anatomical Collection Method Collection Time Receive d Time (Source) Location / / Volume Laterality Blood specimen 07/05/2017 8:20 PM 017 8:27 (specimen) EST PM EST Resulting Agency Comment Spec In Lab Daphne Shahid MD HEMATOLOGY ORDERABLES Performing Organization Address City/[facility]/ZIP Code Phon e Number [address] APTT (07/05/2017 8:20 PM [...] Shahid MD HEMATOLOGY ORDERABLES Performing Organization Address City/[facility]/ZIP [facility] [place] [address] (ABNORMAL) Cardiac Enzymes (LEB/CGP) (07/05/2017 8:20 PM EST) P athologist Signature Troponin-T 2.11 (H) 0.00 - [facility] 0.00 ng/mL [facility] Comment: The 99th percentile for [...] additional sample may be indicated. Reference: Third Hays Definition of Myocardial Infarction. Journal of the [place] [employer]iology 2012;60:1581-98 CK, Total 149 0 - 200 unit/L [facility] LABORATORY Specimen Anatomical Collection Method Collection Time Receive d Time (Source) Location / / Volume Laterality Blood specimen 07/05/2017 8:20 PM 017 8:27 (specimen) EST PM EST Resulting Agency Comment Spec In Lab Daphne Shahid MD CHEMISTRY ORDERABLES Performing Organization Address City/[facility]/[place] [address] (ABNORMAL) Magnesium (07/05/2017 8:20 PM EST) P athologist Signature Magnesium 0.68 (L) 0.69 - 1.07 [facility] mmol/L [facility] LAB[facility]ORY Specimen Anatomical Collection Method Collection Time Receive d Time (Source) Location / / Volume Laterality Blood specimen 07/05/2017 8:20 PM 017 8:27 (specimen) EST PM EST Resulting Agency Comment Spec In Lab Daphne Shahid MD CHEMISTRY ORDERABLES Performing Organization Address City/State/[place] [address] (ABNORMAL) Basic Metabolic Panel (non-fasting) (07/05/2017 8:20 PM EST) athologist Signature Glucose Lvl 321 (H) 65 - 199 [facility] mg/dL [facility] Comment: [...] or in patients with acute kidney failure. [email or web address]-Obvious/DHnkdep [email or web address] [email or web address] Specimen Anatomical Collection Method Collection Time Receive d Time (Source) Location / / Volume Laterality Blood specimen 07/05/2017 8:20 PM 017 8:27 (specimen) EST PM EST Resulting Agency Comment Spec In Lab Daphne Shahid MD CHEMISTRY ORDERABLES Performing Organization Address City/State/[place] [address] (ABNORMAL) POCT Glucose (07/05/2017 7:32 PM EST) athologist Signature POC Glucose 296 (H) 65 - 199 [facility] mg/dL [facility] Comment: Supplemental ranges: <140 mg/dL before meals <180 mg/dL all other times of the day Specimen Anatomical Collection Method Collection Time Receive d Time (Source) Location / / Volume Laterality Blood specimen 07/05/2017 7:32 PM 017 7:32 (specimen) EST PM EST Daphne Shahid MD POINT OF CARE TEST ORDERABLE S Performing Organization Address City/State/ZIP Code [place] [address] CARDIAC CATHETERIZATION (07/05/2017 6:47 PM EST) Anatomical Region Laterality Modality Other Specimen (Source) Anatomical Location Collection Method / Collectio n Time Received Time / Laterality Volume Narrative 07/05/2017 7:27 PM EST ?[facility] ? Cardiac Cathete rization/Intervention Report ? Patient Name: Natalya, Gregory ? Procedure Date: 07/05/2017 ? A #: [id number] ? Primary Physician: Clarisa, Jet T ? Case #: [id number] ? File Name: [id number] ? Catheterization Order Number: [id number] ? [facility] ? Final Report [place], [place] ? Patient Name: ? Gregory Natalya ?ID#: ?[id number] ? : ?1945 ? Procedure Date: ? Johnny 11, 20 17 ?Case #: ? [id number] ? Room: ? 6 ? Case Physician: ? Jet Mkcenna MKd. ?Start: ?18:06 ? Admission: ??07/05/2017 ? [...] presented with: non -STEMI (w/i 7 days). [place] ?[employer] angina c lass was IV. [...] site angio graphy and IABP insertion in catheter finisher and inspector. ? Jet Mckenna, M.D. ? Electronically Signed by: Jet Sampson DeVrizack s, M.D. ? Report Finalized: 07/05/2017 ??19:23 ? Report Last Ammended: 10/26/2017 ??10:29 ? Procedure Note Jet Mckenna MD - 10/26/2017Formatt ing of this note might be different from the original. [facility] Cardiac Catheterization/Intervention Re port Patient Name: Gregory Hoang Procedure Date: 07/05/2017 A #: [id number] Primary Physician: Jet Mckenna Case #: [id number] File Name: [id number] Catheterization Order Number: [id number] [facility] Final Report [place], [place] Patient Name: Gregory Hoang ID#: [id number] : 1945 Procedure Date: July 05, [...] presented with: non-STEMI ( w/i 7 days). [place] [employer] angina class was IV. No [...] site angiograph y and IABP insertion in catheter finisher and inspector. Jet Mckenna M.D. Electronically Signed by: Jet [...] E ? (Age): 1945(72y) Med Rec#: ? [id number] ?Sex: ?M ? Site Loc: ? [facility] ?Ht / Wt: ??173(cm)/86(kg) Pt. Loc: ?[facility] ? BSA: ?2 Study Date: ?? 07/05/2017 ?Pt. Type: Inpatient Tape: ? Referring: Daphne Shahid ([id number]) Referring: MANDA ALCANTAR Reading: Blade Preston ([id number]) Dining Car Steward: Dayami Paula BA, [facility] Diagnosis: [...] E-wave Vmax ?0.8 ?m/sec ? MV deceleration [id number] ?msec ? MV A-wave Vmax ?0.8 ?m/sec [...] ? Mid-Inferior ?Akinetic ? Mid-Inferoseptal ?Hypokinetic ? [place]-Septal ? Akinetic ? [place]-Anterior ? Hypokinetic ? [place]-Lateral ?Hypokinetic ? [place]-Inferior ? Akinetic ? [place]-Tip ?Akinetic ? This report has been electronically sign ed by: _ Blade Preston MD ? 07/06/2017 08 :53:15 Images reviewed and interpretation verif ied [facility] Cardiac Ultrasound Laboratory Procedure Note Blade Preston MD - 07/06/2017Formatt ing of this note might be different from the original. Procedure: Transthoracic Echocardiogram Patient: NATALYA MCBRIDE(Age): [birth year]72y) Med Rec#: [id number] Sex: M [facility] Loc[facility] Ht / Wt: 173(cm)/86(kg) Pt. Loc: U BSA: 2 Study Date: 07/05/2017 Pt. Type: Inpatie nt Tape: Referring: Daphne Shahid ([id number]) Referring: MANDA ALCANTAR Reading: Blade Preston ([id number]) Dining Car Steward: Dayami Paula BA, [facility] Diagnosis: [...] MV E-wave Vmax 0.8 m/sec MV deceleration [id number] msec MV A-wave Vmax 0.8 m/sec MV [...] Hypokinetic Mid-Posterolateral Hypokinetic Mid-Inferior Akinetic Mid-Inferoseptal Hypokinetic [place]-Septal Akinetic [place]-Anterior Hypokinetic [place]-Lateral Hypokinetic [place]-Inferior Akinetic [place]-Tip Akinetic This report has been electronically sign ed by: _ Blade Preston MD 07/06/2017 08:53:15 Images reviewed and interpretation verif ied [facility] Cardiac Ultrasound Laboratory Daphne Shahid MD ECHO ORDERABLES Differential, Automated (07/05/2017 4:55 PM EST) athologist Signature Neutrophils % 77.0 % [facility]ORY Neutr Abs (ANC) 5.26 1.70 - [facility] 6.10 [facility] x10(3)[facility] Lymphocytes % 13.3 % [facility] Lymphocytes Abs 0.9 0.9 - 3.2 [facility] x10(3)/[facility] LABORATORY Monocytes % 8.2 % [facility] Monocyte Abs 0.6 0.3 - 0.9 [facility] x10(3)/[facility] LABORATORY Eosinophils % 0.7 % [facility] Eosinophils Abs 0.0 0.0 - 0.4 [facility] x10(3)[facility] LABORATORY Basophils % 0.4 % [facility] Basophils Abs 0.0 0.0 - 0.1 [facility] x10(3)/[facility] LABORATORY Immature Gran % 0.40 % [facility] Comment: Immature granulocytes(IG's)percentage an d absolute count will include metamyelocytes, myelocytes, and promyelo cytes. Blood smears from CBCs yielding IG's will be scanned manually for concor dance. If this scan disagrees with the automated IG or if promyelocytes are not ed, a manual differential will be performed. Melisa Gran Abs 0.03 0.00 - 0.04 x10(3)/[facility] MAR Y [facility] LABORATORY Specimen Anatomical Collection Method Collection Time Receive d Time (Source) Location / / Volume Laterality Blood specimen 07/05/2017 4:55 PM 017 5:24 (specimen) EST PM EST Resulting Agency Comment Spec In Lab Daphne Shahid MD HEMATOLOGY ORDERABLES Performing Organization Address City/State/[place] [address] (ABNORMAL) Hemogram (07/05/2017 4:55 PM EST) Analysis Performed At Patho logist Time Signature WBC 6.8 4.0 - 9.5 [facility] x10(3)/[facility] LABORATORY RBC 4.67 4.58 - [place] 5.54 [facility] x10(6)/[facility] LABORATORY Hemoglobin 14.0 13.7 - [facility] 16.5 gm/dL [facility] LABORATORY Hematocrit 41.0 40.5 - [facility] 48.5 % [facility] LABORATORY MCV 87.8 82.9 - [facility] [address] [facility] LABORATORY MCH 30.0 27.5 - [place] 32.1 pg [facility] LABORATORY MCHC 34.1 32.0 - [place] 35.7 gm/dL [facility] LABORATORY Platelets 197 145 - 357 [facility] x[facility](3[facility] LABORATORY RDWSD 46.4 (H) 36.0 - [facility] [address] [facility] LABORATORY RDWCV 14.5 (H) 11.4 - [facility] 13.8 % [facility] LABORATORY MPV 9.7 7.6 - 12.9 [facility] nRBC % Auto 0.0 % [facility] LABORATORY nRBC Abs Auto 0.000 0.000 - [facility] 0.000 [facility] x10(3)/[facility] LABORATORY Specimen Anatomical Collection Method Collection Time Receive d Time (Source) Location / / Volume Laterality Blood specimen 07/05/2017 4:55 PM 017 5:24 (specimen) EST PM EST Resulting Agency Comment Spec In Lab Daphne Shahid MD HEMATOLOGY ORDERABLES Performing Organization Address City/State/[place] [address] (ABNORMAL) Cardiac Enzymes (LEB/CGP) (07/05/2017 4:55 PM EST) P athologist Signature Troponin-T 1.69 (H) 0.00 - [place] 0.00 ng/mL [facility] Comment: The 99th percentile for [...] additional sample may be indicated. Reference: Third Hays Definition of Myocardial Infarction. Journal of the [place] College [employer]iology 2012;60:1581-98 CK, Total 191 0 - 200 unit/L [facility] LABORATORY Specimen Anatomical Collection Method Collection Time Receive d Time (Source) Location / / Volume Laterality Blood specimen 07/05/2017 4:55 PM 017 5:56 (specimen) EST PM EST Resulting Agency Comment Spec In Lab Daphne Shahid MD CHEMISTRY ORDERABLES Performing Organization Address City/State/ZIP Code Phon e Number [place] [id number]OS[address] LAB[address] Drive (ABNORMAL) pro-Brain Natriuretic Peptide (07/05/2017 4:55 PM EST) P athologist Signature ProBNP 1,598 (H) <=125 [facility] pg/mL [facility] LABORATORY Specimen Anatomical Collection Method Collection Time Receive d Time (Source) Location / / Volume Laterality Blood specimen 07/05/2017 4:55 PM 017 5:24 (specimen) EST PM EST Resulting Agency Comment Spec In Lab Daphne Shahid MD CHEMISTRY ORDERABLES Performing Organization Address City/State/ZIP Code Phon e Number [address] Magnesium (07/05/2017 4:55 PM EST) P athologist Signature Magnesium 0.78 0.69 - 1.07 [facility] mmol/L [facility] LABORATORY Specimen Anatomical Collection Method Collection Time Receive d Time (Source) Location / / Volume Laterality Blood specimen 07/05/2017 4:55 PM 017 5:24 (specimen) EST PM EST Resulting Agency Comment Spec In Lab Daphne Shahid MD CHEMISTRY ORDERABLES Performing Organization Address City/[facility]/[place] [address] (ABNORMAL) Basic Metabolic Panel (non-fasting) (07/05/2017 4:55 PM EST) P athologist Signature Glucose Lvl 230 (H) 65 - 199 [facility] mg/dL [facility] Comment: [...] or in patients with acute kidney failure. [email or web address]/[email or web address] [email or web address] Specimen Anatomical Collection Method Collection Time Receive d Time (Source) Location / / Volume Laterality Blood specimen 07/05/2017 4:55 PM 017 5:24 (specimen) EST PM EST Resulting Agency Comment Spec In Lab Daphne Shahid MD CHEMISTRY ORDERABLES Performing Organization Address City/[facility] Code Phon e Number [address] (ABNORMAL) APTT (07/05/2017 4:55 [...] Shahid MD HEMATOLOGY ORDERABLES Performing Organization Address City/[facility] [place] [address] (ABNORMAL) POCT Glucose (07/05/2017 4:53 PM EST) P athologist Signature POC Glucose 208 (H) 65 - 199 [facility] mg/dL [facility] Comment: Supplemental ranges: <140 mg/dL before meals <180 mg/dL all other times of the day Specimen Anatomical Collection Method Collection Time Receive d Time (Source) Location / / Volume Laterality Blood specimen 07/05/2017 4:53 PM 017 4:53 (specimen) EST PM EST Daphne Shahid MD POINT OF CARE TEST ORDERABLE S Performing Organization Address City/State/ZIP Code Phon e Number [place] [id number]OS[address] Drive EKG 12 Lead (07/05/2017 4:32 PM EST) Component Value Ref Range Test Analysis Performed Pathologis t Method Time At Signature Ventricular rate 97 BPM MUSE SYSTEM Atrial Rate 97 BPM MUSE SYSTEM P-R Interval 148 ms MUSE SYSTEM QRS Duration 96 ms MUSE SYSTEM Q-T Interval 364 ms MUSE SYSTEM QTC Calculated 462 ms MUSE SYSTEM (Bezet) Calculated P [place] 48 degrees MUSE SYSTEM Calculated R [place] -33 degrees MUSE SYSTEM Calculated T [place] 98 degrees MUSE SYSTEM INTERPRETATION Normal sinus [...] type of vessel, [place] or graft Cardiomyopathy, ischemic Other specified forms [...] in dextrose 5% 250 mL EST infusion (BELL ATTENDANT) CONTINUOUS PRN, Starting on Wed07/05/17 at 1837, [...] 240, 2000 (N ot Given - Provider: Deniec Jacobson RN - Reason: Order parameters not [...] during assessment)1330 (Not Given - Provider: More Ltuher RN - Reason: Contraindicated - Comment: IV [...]
Routine documented in this encounter Care Teams Money Manager Relationship Specialty Start Date End Date Lovely Vicente MD PCP - General 04/16/[address] [place] [address] [address] [place] [address] documented as of this encounter
--- OUTSIDE RECORDS SUMMARY | 2022-04-27 08:22 | XMS_ITS | Encounter Summary ---
:1945 Author Organization [facility] [place] [address] Care Team Providers Name Role Phone Lovely Vicente MD Primary Care Provider Encounter Details Date Type Department Care Team Description 07/10/2016 Telephone Dermatology at [facility] Rigoberto White III, [address] [place] [address] [facility] [phone] [facility] MARIE-DERMAT [place], [place] [address] (Wo rk) Social History Tobacco [...] Zulma Dolan MD [facility] [address] [place], [place] [address] (Wo rk) 05/28/2022 Laboratory Appointment Lab 05/28/2022 Office Visit Cardiology Zulma Dolan MD [facility] [place] [address] Liz Poole PA [facility] [place] [address] 06/10/2022 Office Visit Dermatology Laura Scherer MD [facility] DR TEJA MARIE-DERMAT [place], [place] [address] (Wo rk) documented as of this encounter Visit Diagnoses Not on filedocumented in this encounter Care Teams Portal Architect Relationship Specialty Start Date End Date Lovely Vicente MD PCP - General 04/16/15 [facility] [address] [place] [address] documented as of this encounter
--- OUTSIDE RECORDS SUMMARY | 2022-04-27 08:22 | XMS_ITS | Encounter Summary ---
:1945 Author Organization [facility] [place] [address] Care Team Providers Name Role Phone Lovely Vicente MD Primary Care Provider Reason for Visit Reason Onset Date Comments Referral 10/30/2015 Urgent referral for mac on SIMÓN [place]AVIS Encounter Details Date Type Department Care Team Description 10/30/2015 Telephone Ophthalmology at [facility] C Jayson Ruiz Referral (Urgent [facility] MD Grabiel referral for mac on [facility] [address] SIM[address] [place]) [place] [address] OPHTHALMOLOGY DEPT. [phone] [place], [place] 0[address] (Wo rk) Social History Tobacco [...] 10:18 AM EDT Patient seen by Dr. Harriosn for routine CEE and found mac on [...] Dolan MD [facility] [address] [place], [place] [address] (Wo rk) 05/28/2022 Laboratory Appointment Lab 05/28/2022 Office Visit Cardiology Zulma Dolan MD [facility] [place] [address] Liz Poole PA [facility] [place] [address] 06/10/2022 Office Visit Dermatology Laura Scherer MD [facility] DR TEJA GR-DERMAT [place], [place] [address] (Wo rk) documented as of this encounter Visit Diagnoses Not on filedocumented in this encounter Care Teams Assembler Musical Equipment Relationship Specialty Start Date End Date Lovely Vicente MD PCP - General 04/16/[address] [place], [place] [address] documented as of this encounter
--- OUTSIDE RECORDS SUMMARY | 2022-04-27 08:22 | XMS_ITS | Encounter Summary ---
:1945 Author Organization [facility] [address] Care Team Providers Name Role Phone Angela Holliday APRN Primary Care Provider Encounter Details Date Type Department Care Team Description 04/30/2014 Orders Only Endocrinology at [facility] Albertina Palmer, Thyroid cancer [facility] Jorge Boyer MD (Primary Dx) [place] [address] [facility] [phone] CENTER ENDOCRINOLOGY DEPT [place], [place] 0[address] Social History Tobacco Use [...] MD [facility] er Dr [place], [place] 0[address] (Wo rk) 05/28/2022 Laboratory Appointment Lab 05/28/2022 Office Visit Cardiology Zulma Dolan MD [facility] [place] [id number] Liz Poole PA [facility] [place] [address] 06/10/2022 Office Visit Dermatology Laura Scherer MD [facility] ER DR TEJA GR-DERMAT [place], [place] [address] (Wo rk) documented as of this encounter Visit Diagnoses Diagnosis Thyroid cancer - Primary Malignant neoplasm of thyroid gland documented in this encounter Care Teams Brim Shaper Relationship Specialty Start Date End Date Angela Holliday APRN PCP - General 01/25/13 04/15/[address] [place] [address] documented as of this encounter
--- OUTSIDE RECORDS SUMMARY | 2022-04-27 08:22 | XMS_ITS | Encounter Summary ---
:1945 Author Organization [facility] [place] [address] Care Team Providers Name Role Phone MiyaAngela STACIE Primary Care Provider Encounter Details Date Type Department Care Team Description 04/26/2014 Office Visit Endocrinology at [facility] Albertina Palmer, Papillary thyroid [facility] [place] [address] CENTER [phone] ENDOCRINOLOGY DEPT [place] [address] Social History Tobacco Use Types Packs/Day Years [...] Description 05/28/2022 Appointment Cardiology Zulma Doaln MD [facility] Dr [place], [place] [address] (Wo rk) 05/28/2022 Laboratory Appointment Lab 05/28/2022 Office Visit Cardiology Zulma Dolan MD [facility] [place] [address] Liz Poole PA [facility] [place] [address] 06/10/2022 Office Visit Dermatology Laura Scherer MD [facility] DR TEJA GR-DERMAT [place], [place] 0[address] (Wo rk) documented as [...] athologist Signature Thyroglobulin <0.4 <=54.9 CERNER ng/mL [facility] Comment: Interpret with caution. Tg levels [...] BR et al. J Clin Endo Metab 1999;84:3523-0305). Assay performed using the DPC Immulite T [...] Address City/State/ZIP Code Phon e Number [address] CERNER MILLENNIUM (ABNORMAL) TSH (04/26/2014 9:07 AM EDT) P athologist Signature TSH 4.46 (H) 0.27 - 4.20 CERNER mcIU/mL MILLENNIUM Specimen Anatomical Collection Method Collection Time Receive d Time (Source) Location / / Volume Laterality Blood specimen 04/26/2014 9:07 AM 014 9:12 (specimen) EDT AM EDT Resulting Agency Comment Spec In Lab Rosalind Palmer MD CHEMISTRY ORDERABLES Performing Organization Address City/[facility]/ZIP Code Phon e Number [address] CERNER MILLENNIUM documented in this encounter Visit Diagnoses Diagnosis Papillary thyroid carcinoma Malignant neoplasm of thyroid gland documented in this encounter Care Teams Day Camp Counselor Relationship Specialty Start Date End Date Angela Holliday APRN PCP - General 01/25/13 04/15/[address] [place] [address] documented as of this encounter
--- OUTSIDE RECORDS SUMMARY | 2022-04-27 08:22 | XMS_ITS | Encounter Summary ---
:1945 Author Organization [facility] [place] [address] Care Team Providers Name Role Phone Lovely Vicente MD Primary Care Provider Encounter Details Date Type Department Care Team Description 11/28/2016 Telephone Dermatology at [facility] Rigoberto Garcia III, [address] [place] [address] [facility] [phone] [facility] SIMÓN-DERMAT [place], [place] [address] (Wo rk) Social History Tobacco [...] [facility] [address] [place], [place] [address] (Wo rk) 05/28/2022 Laboratory Appointment Lab 05/28/2022 Office Visit Cardiology Zulma Dolan [place] [address] Liz Poole PA [facility] [place] [address] 06/10/2022 Office Visit Dermatology Laura Scherer MD [facility] DR TEJA MARIE-DERMAT [place], [place] [address] (Wo rk) documented as of this encounter Visit Diagnoses Not on filedocumented in this encounter Care Teams Manager Unit Relationship Specialty Start Date End Date Lovely Vicente MD PCP - General 04/16/[address] [place] [address] documented as of this encounter
--- OUTSIDE RECORDS SUMMARY | 2022-04-27 08:22 | XMS_ITS | Encounter Summary ---
:1945 Author Organization [facility] Address [facility] [place] [address] Care Team Providers Name Role Phone Lovely Vicente MD Primary Care Provider Reason for Visit Reason Comments Skin Check Encounter Details Date Type Department Care Team Description 11/05/2015 Office Visit Dermatology at Rigoberto Forman benign nevi; Abdelrahman HOOPER MD Lentigines; [address] [facility] History of melanoma; [place] [address] Skin exam for malignant neoplasm [phone] [facility] [place], [place] [address] Social History Tobacco Use Types [...] TEST) Strip by [facility].(Non- Drug; Combo Route) route [...] the presence of Dr. Garcia.: GINNY CHRISTIANSEN SCIENTIFIC DATABASE CURATOR and Judit Cruz, Clinical Scribe I performed the above scribed service and agree with the accuracy of the documentation in this encounter. Rigoberto Garcia MD Section of Dermatology [facility] documented in this encounter Plan of Treatment Upcoming Encounters Date Type Specialty Care Team Description 05/28/2022 Appointment Cardiology Zulma Dolan MD [facility] [address] [place], [place] [address] (Wo rk) 05/28/2022 Laboratory Appointment Lab 05/28/2022 Office Visit Cardiology Zulma Dolan MD [facility] [place] [address] Liz Poole PA [facility] [place] [address] 06/10/2022 Office Visit Dermatology Laura Scherer MD [facility] DR TEJA GR-DERMAT [place], [place] 0[address] (Wo rk) documented as of this encounter Visit Diagnoses Diagnosis Multiple benign nevi Benign neoplasm of skin, site unspecifie d Lentigines Other dyschromia History of melanoma Personal history of malignant melanoma o f skin Skin exam for malignant neoplasm Screening for malignant neoplasm of the skin documented in this encounter Care Teams Thai Masseur Relationship Specialty Start Date End Date Lovely Vicente MD PCP - General 04/16/15 [facility] [address] [place] [address] (work) documented as of this encounter
--- OUTSIDE RECORDS SUMMARY | 2022-04-27 08:22 | XMS_ITS | Encounter Summary ---
:1945 Author Organization [facility] [place] [address] Care Team Providers Name Role Phone Lovely Vicente MD Primary Care Provider Reason for Visit Reason Onset Date Comments Medication Refill 06/19/2016 Encounter Details Date Type Department Care Team Description 06/19/2016 Refill Endocrinology at [facility] Luz Stallings MD [facility] [place] [address] ENDOCRINOLOGY DEPT [phone] [place], [place] [address] (Wo rk) Social History Tobacco [...] [facility] er Dr [place] [address] (Wo rk) 05/28/2022 Laboratory Appointment Lab 05/28/2022 Office Visit Cardiology Zulma Dolan MD [facility] [place] [address] Liz Poole PA [facility] [place] [address] 06/10/2022 Office Visit Dermatology Laura Scherer MD [facility] DR TEJA GR-DERMAT [place], [place] [address] (Wo rk) documented as of this encounter Visit Diagnoses Not on filedocumented in this encounter Care Teams Dry Sand Molder Relationship Specialty Start Date End Date Lovely Vicente MD PCP - General 04/16/[address] [place], [place] [address] documented as of this encounter
--- OUTSIDE RECORDS SUMMARY | 2022-04-27 08:22 | XMS_ITS | Encounter Summary ---
:1945 Author Organization [facility] [place] [address] Care Team Providers Name Role Phone Lovely Vicente MD Primary Care Provider Reason for Visit Reason Comments Medication Refill Encounter Details Date Type Department Care Team Description 05/10/2015 Refill Endocrinology at [facility] Rosalind Covarrubias, [facility] [place] [address] [facility] [phone] ENDOCRINOLOGY [place], [place] [address] (Wo rk) Social History [...] [facility] [address] [place], [place] [address] (Wo rk) 05/28/2022 Laboratory Appointment Lab 05/28/2022 Office Visit Cardiology Zulma Dolan MD [facility] [place] [address] Liz Poole PA [facility] [place] [address] 06/10/2022 Office Visit Dermatology Laura Scherer MD [facility] ER DR TEJA GR-DERMAT [place], [place] [address] (Wo rk) documented as of this encounter Visit Diagnoses Not on filedocumented in this encounter Care Teams Bath House Attendant Relationship Specialty Start Date End Date Lovely Vicente MD PCP - General 04/16/[address] [place] [address] documented as of this encounter
--- OUTSIDE RECORDS SUMMARY | 2022-04-27 08:23 | XMS_ITS | Encounter Summary ---
:1945 Author Organization [facility] [place] [address] Care Team Providers Name Role Phone Angela Holliday APRN Primary Care Provider Encounter Details Date Type Department Care Team Description 03/30/2013 Telephone General Surgery at [facility] Cliff Nevarez, [place] [address] Social History Tobacco Use Types Packs/Day [...] Zulma Dolan MD [facility] [address] [employer], [place] [address] (Wo rk) 05/28/2022 Laboratory Appointment Lab 05/28/2022 Office Visit Cardiology Zulma Dolan MD [facility] [place] [address] Liz Poole PA [facility] [place] [address] 06/10/2022 Office Visit Dermatology Laura Scherer MD [facility] DR TEJA GR-DERMAT [place], [place] [address] (Wo rk) documented as of this encounter Visit Diagnoses Not on filedocumented in this encounter Care Teams Weather Stripper Relationship Specialty Start Date End Date Angela Holliday APRN PCP - General 01/25/13 04/15/[address] [place] [address] documented as of this encounter
--- OUTSIDE RECORDS SUMMARY | 2022-04-27 08:23 | XMS_ITS | Encounter Summary ---
:1945 Author Organization [facility] [place] [address] Care Team Providers Name Role Phone Unknown Primary Care Provider Unavailable Reason for Visit Reason Comments Other Encounter Details Date Type Department Care Team Description 10/05/2012 Telephone Dermatology at [facility] Rigoberto Garcia III, [address] [place] [address] [facility] [phone] TEJA MARIE-DERMAT [place] [address] (Wo rk) Social History Tobacco Use Types [...] Zulma Dolan MD [facility] [place], [place] [address] (Wo rk) 05/28/2022 Laboratory Appointment Lab 05/28/2022 Office Visit Cardiology Zulma Dolan MD [facility] [place] [address] Liz Poole PA [facility] [place] [address] 06/10/2022 Office Visit Dermatology Laura Scherer MD [facility] DR TEJA MARIE-DERMAT [place], [place] [address] (Wo rk) documented as of this encounter Visit Diagnoses Not on filedocumented in this encounter Care Teams Engraver Ornamental Design Relationship Specialty Start Date End Date Unknown PCP - General 10/04/12 01/24/13 None documented as of this encounter
--- OUTSIDE RECORDS SUMMARY | 2022-04-27 08:23 | XMS_ITS | Encounter Summary ---
:1945 Author Organization [facility] [place] [address] Care Team Providers Name Role Phone Adi Costello MD Primary Care Provider Reason for Visit Reason Comments Annual Exam ckeck his groin and melanoma follow-up Encounter Details Date Type Department Care Team Description 11/21/2010 Follow-Up Dermatology Arik Tipton Melanoma (Primary Dx) [facility] MD [place] [phone] DERMATOLOGY DEPT . 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 His only complaints are leg cramps, skin [...] Arik Tipton MD Section of Dermatology [facility] documented in this encounter Plan of Treatment Upcoming Encounters Date Type Specialty Care Team Description 05/28/2022 Appointment Cardiology Zulma Dolan MD [facility] [address] [place], [place] [address] (Wo rk) 05/28/2022 Laboratory Appointment Lab 05/28/2022 Office Visit Cardiology Zulma Dolan MD [facility] [place] [address] Liz Poole PA [facility] [place] [address] 06/10/2022 Office Visit Dermatology Laura Scherer MD [facility] DR TEJA GR-DERMAT [place], [place] [address] (Wo rk) documented as of this encounter Visit Diagnoses Diagnosis Melanoma - Primary Melanoma of skin, site unspecified documented in this encounter Care Teams Feather Edger Relationship Specialty Start Date End Date Adi Costello MD PCP - General 06/17/10 09/21/11 [address] [place] [address] documented as of this encounter
--- OUTSIDE RECORDS SUMMARY | 2022-04-27 08:23 | XMS_ITS | Encounter Summary ---
:1945 Author Organization [facility] [place] [address] Care Team Providers Name Role Phone Angela Holliday APRN Primary Care Provider Reason for Visit Reason Onset Date Comments Other 03/30/2013 blood in catheter ba g Encounter Details Date Type Department Care Team Description 03/30/2013 Telephone General Surgery at [facility] Janneth Sharma, Other (blood in [facility] RN catheter bag) [place] [address] Social History Tobacco Use Types Packs/Day [...] Zulma Dolan MD [facility] [place], [place] [address] (Wo rk) 05/28/2022 Laboratory Appointment Lab 05/28/2022 Office Visit Cardiology Zulma Dolan MD [facility] [place] [address] Liz Poole PA [facility] [place] [address] 06/10/2022 Office Visit Dermatology Laura Scherer MD [facility] DR TEJA GR-DERMAT [place], [place] [address] (Wo rk) documented as of this encounter Visit Diagnoses Not on filedocumented in this encounter Care Teams Senior Product Consultant Relationship Specialty Start Date End Date Angela Holliday APRN PCP - General 01/25/13 04/15/[address] [place] [address] documented as of this encounter
--- OUTSIDE RECORDS SUMMARY | 2022-04-27 08:23 | XMS_ITS | Encounter Summary ---
:1945 Author Organization [facility] [place] [address] Care Team Providers Name Role Phone Angela Holliday APRN Primary Care Provider Reason for Referral Surgical (Routine) - Closed Specialty Diagnoses / Procedures Referred By Contact Refer red To Contact General Surgery Diagnoses Elijah Villagomez MD Colacchio, Thomas A, MD [address] [place] [address] [place] [address] [place] [address] Phone: Fax: Referral ID Status Reason Start Date Expiration Date Visits V isits Requested Authorized [id number] Closed Specialty 01/25/2013 07/24/2013 1 1 Service Requested Reason for Visit Reason Comments Thyroid Problem Encounter Details Date Type Department Care Team Description 01/25/2013 Office Visit Endocrinology at [facility] Elijah Fuentes Goiter (Primary Dx) [facility] [address] [place] [phone] [place] [address] [phone] Social History Tobacco Use Types Packs/Day Years [...] the thyroid gland were obtained using a [employer] and an HFL38/13-6 broadband linear array transducer. [...] Zulma Dolan MD [facility] [place], [place] [address] (Wo rk) 05/28/2022 Laboratory Appointment Lab 05/28/2022 Office Visit Cardiology Zulma Dolan [place] [address] Liz Poole PA [facility] [place] [address] 06/10/2022 Office Visit Dermatology Laura Scherer MD [facility] DR TEJA GR-DERMAT [place], [place] [address] (Wo rk) Scheduled Referrals Name [...] Organization Address City/State/ZIP [place] [address] CERNER MILLENNIUM documented in this encounter Visit Diagnoses Diagnosis Goiter - Primary Goiter, unspecified documented in this encounter Care Teams University Intern Relationship Specialty Start Date End Date Angela Holliday APRN PCP - General 01/25/13 04/15/[address] [place] [address] documented as of this encounter
--- OUTSIDE RECORDS SUMMARY | 2022-04-27 08:23 | XMS_ITS | Encounter Summary ---
:1945 Author Organization [facility] [place] [address] Care Team Providers Name Role Phone Angela Holliday APRN Primary Care Provider Encounter Details Date Type Department Care Team Description 03/30/2013 Telephone General Surgery at [facility] Cliff Nevarez, [place] [address] Social History Tobacco Use Types Packs/Day [...] Dolan MD [facility] er [place], [place] [address] (Wo rk) 05/28/2022 Laboratory Appointment Lab 05/28/2022 Office Visit Cardiology Zulma Dolan MD [facility] [place] [address] Liz Poole PA [facility] Dr [place] [address] 06/10/2022 Office Visit Dermatology Laura Scherer MD [facility] DR TEJA GR-DERMAT [place], [place] 0[address] (Wo rk) documented as of this encounter Visit Diagnoses Not on filedocumented in this encounter Care Teams Application Security Consultant Relationship Specialty Start Date End Date Angela Holliday APRN PCP - General 01/25/13 04/15/[address] [place] [address] documented as of this encounter
--- OUTSIDE RECORDS SUMMARY | 2022-04-27 08:23 | XMS_ITS | Encounter Summary ---
:1945 [address] [facility] [place] [address] Care Team Providers Name Role Phone Angela Holliday STACIE Primary Care Provider Encounter Details Date Type Department Care Team Description 04/04/2013 Telephone Urology at [facility] Parker Sanchez MD [facility] [place] [address] UROLOGY DEPT [phone] [place], [place] [address] (Wo rk) Social History Tobacco [...] Dolan MD [facility] Dr [place] [address] (Wo rk) 05/28/2022 Laboratory Appointment Lab 05/28/2022 Office Visit Cardiology Zulma Dolan MD [place] [address] Liz Poole PA [facility] [place] [address] 06/10/2022 Office Visit Dermatology Laura Scherer MD [facility] DR TEJA GR-DERMAT [place], [place] [address] (Wo rk) documented as of this encounter Visit Diagnoses Not on filedocumented in this encounter Care Teams Art Consultant Relationship Specialty Start Date End Date Angela Holliday APRN PCP - General 01/25/13 04/15/[address] [place] [address] documented as of this encounter
--- OUTSIDE RECORDS SUMMARY | 2022-04-27 08:23 | XMS_ITS | Encounter Summary ---
:1945 Author Organization [facility] [place] [address] Care Team Providers Name Role Phone Angela Holliday APRN Primary Care Provider Encounter Details Date Type Department Care Team Description 03/15/2013 Telephone General Surgery at [facility] [address] [address], [place] [address] Social History Tobacco Use Types Packs/Day [...] Cardiology Zulma Dolan MD [facility] [place], [place] [address] (Wo rk) 05/28/2022 Laboratory Appointment Lab 05/28/2022 Office Visit Cardiology Zulma Dolan MD [facility] [place] [address] Liz Poole PA [facility] [place] [address] 06/10/2022 Office Visit Dermatology Laura Scherer MD [facility] DR TEJA GR-DERMAT [place], [place] [address] (Wo rk) documented as of this encounter Visit Diagnoses Not on filedocumented in this encounter Care Teams Hose Seamer Relationship Specialty Start Date End Date Angela Holliday APRN PCP - General 01/25/13 04/15/[address] [place] [address] documented as of this encounter
--- OUTSIDE RECORDS SUMMARY | 2022-04-27 08:23 | XMS_ITS | Encounter Summary ---
:1945 Author Organization [facility] [place] [address] Care Team Providers Name Role Phone MiyaLokeshAngela STACIE Primary Care Provider Encounter Details Date Type Department Care Team Description 04/04/2013 Orders Only General Surgery at Manny Mcknight thyroid [facility] [place] Eliseo carcinoma (Primary Dx) [facility] [place] [address] GENERAL SURGERY [phone] [place], [place] [address] Social History Tobacco Use Types Packs/Day Years Used Date Former Smoker Alcohol Use Standard Drinks/Week Comments No 0 (1 standard drink = 0.6 oz pure alcoho l) Sex Assigned at Date Recorded Not on file documented as of this encounter Plan of Treatment Upcoming Encounters Date Type Specialty Care Team Description 05/28/2022 Appointment Cardiology Zulma Dolan MD [facility] [place], [place] [address] (Wo rk) 05/28/2022 Laboratory Appointment Lab 05/28/2022 Office Visit Cardiology Zulma Dolan MD [facility] [place] [address] Liz Poole PA [facility] [place] [address] 06/10/2022 Office Visit Dermatology Laura Scherer MD [facility] [address] TEJA GR[address]DERMAT [place], [place] [address] (Wo rk) documented as of this encounter Visit Diagnoses Diagnosis Papillary thyroid carcinoma - Primary Malignant neoplasm of thyroid gland documented in this encounter Care Teams District Service Manager Relationship Specialty Start Date End Date Angela Holliday APRN PCP - General 01/25/13 04/15/[address] [place] [address] documented as of this encounter
--- OUTSIDE RECORDS SUMMARY | 2022-04-27 08:23 | XMS_ITS | Encounter Summary ---
:1945 Author Organization [facility] [place] [address] Care Team Providers Name Role Phone MiyaAngela STACIE Primary Care Provider Encounter Details Date Type Department Care Team Description 11/27/2013 Orders Only [place]rology [place] [facility] Blade Smith, Urinary retention [facility] (Primary Dx) [place] [address] UROLOGY DEPT [place], [place] 0[address] Social History Tobacco Use [...] Dolan MD [facility] er [place], [place] [address] (Wo rk) 05/28/2022 Laboratory Appointment Lab 05/28/2022 Office Visit Cardiology Zulma Dolan MD [facility] [place] [address] Liz Poole PA [facility] [place] [address] 06/10/2022 Office Visit Dermatology Laura Scherer MD [facility] DR TEJA GR-DERMAT [place], [place] [address] (Wo rk) documented as [...] Address City/State/ZIP [place] [address] CERNER MILLENNIUM documented in this encounter Visit Diagnoses Diagnosis Urinary retention - Primary Retention of urine, unspecified documented in this encounter Care Teams Risk Tech Relationship Specialty Start Date End Date Angela Holliday APRN PCP - General 01/25/13 04/15/[address] [place] [address] documented as of this encounter
--- OUTSIDE RECORDS SUMMARY | 2022-04-27 08:23 | XMS_ITS | Encounter Summary ---
:1945 Author Organization [facility] [place] [address] Care Team Providers Name Role Phone Angela Holliday APRN Primary Care Provider Encounter Details Date Type Department Care Team Description 01/25/2013 Clinical [place] [address] Social History Tobacco Use Types Packs/Day [...] Dolan MD [facility] [address] [place], [place] [address] (Wo rk) 05/28/2022 Laboratory Appointment Lab 05/28/2022 Office Visit Cardiology Zulma Dolan MD [facility] [place] [address] Liz Poole PA [facility] [place] [address] 06/10/2022 Office Visit Dermatology Laura Scherer MD [facility] DR TEJA GR[address]DERMAT [place], [place] [address] (Wo rk) documented as of this encounter Visit Diagnoses Not on filedocumented in this encounter Care Teams Strategic Debriefing Officer Relationship Specialty Start Date End Date Angela Holliday APRN PCP - General 01/25/13 04/15/[address] [place] [address] documented as of this encounter
--- OUTSIDE RECORDS SUMMARY | 2022-04-27 08:23 | XMS_ITS | Encounter Summary ---
:1945 Author Organization [facility] Address [facility] [address] [place] [address] Care Team Providers Name Role Phone Unknown Primary Care Provider Unavailable Reason for Visit Reason Comments Skin Check Encounter Details Date Type Department Care Team Description 10/04/2012 Follow-Up Dermatology at Rigoberto Forman soriasis (Primary Dx); Abdelrahman HOOPER MD Neoplasm of unspecified nature of bone, soft tissue, and skin; [address] [facility] Skin lesion of chest wall; [place] [address] Seborrheic psoriasis- scalp and ingtergl uteal area [phone] [facility]DER[facility] [place], [place] [address] (Wo rk) Social History Tobacco [...] changes: Rigoberto Albarran MD Section of Dermatology [facility] documented in this encounter Plan of Treatment Upcoming Encounters Date Type Specialty Care Team Description 05/28/2022 Appointment Cardiology Zulma Dolan MD [facility] [address] [place], [place] [address] (Wo rk) 05/28/2022 Laboratory Appointment Lab 05/28/2022 Office Visit Cardiology Zulma Dolan MD [facility] [place] [address] Liz Poole PA [facility] [place] [address] 06/10/2022 Office Visit Dermatology Laura Scherer MD [facility] DR TEJA GR-DERMAT [place], [place] [address] (Wo rk) documented as [...] [facility] Report ? Provider: ?? RIGOBERTO ALBARRAN III Pt. Name: ?? DON HOANG ?A ? Acc #: ?[id number] ? Pt. ? Col Date: ?? 3 [...] MD PATHOLOGY/CYTOLOGY ORDERABLE S Performing Organization Address City/[facility]/ZIP Code Phon e Number [address] [facility] Specimen to Pathology (NON-OR) (10/04/2012 9:55 AM EDT) Specimen Anatomical Collection Method Collection Time Receive d Time (Source) Location / / Volume Laterality AP Specimen 10/04/2012 9:55 AM 201 3 9:56 EDT AM EDT Narrative [facility] - 10/04/2012 9:56 AM E DT Specimen requisition ordered. ??Separate Pathology report to follow Rigoberto Albarran III, MD PATHOLOGY/CYTOLOGY ORDERABLE S Performing Organization Address City/[facility]/ZIP Code Phon e Number [address] [facility] documented in this encounter Visit Diagnoses Diagnosis Psoriasis - Primary Other psoriasis Neoplasm of unspecified nature of bone, soft tissue, and skin Skin lesion of chest wall Unspecified disorder of skin and subcuta neous tissue Seborrheic psoriasis- scalp and ingtergl uteal area Other psoriasis documented in this encounter Care Teams Import Customs Clearing Agent Relationship Specialty Start Date End Date Unknown PCP - General 10/04/12 01/24/13 None documented as of this encounter
--- OUTSIDE RECORDS SUMMARY | 2022-04-27 08:23 | XMS_ITS | Encounter Summary ---
:1945 Author Organization [facility] [address] Care Team Providers Name Role Phone Angela Holliday APRN Primary Care Provider Encounter Details Date Type Department Care Team Description 04/05/2013 Office Visit Urology at [facility] [place] [address] Social History Tobacco Use Types Packs/Day [...] [facility] Dr [place], [place] [address] (Wo rk) 05/28/2022 Laboratory Appointment Lab 05/28/2022 Office Visit Cardiology Zulma Dolan MD [facility] [place] [address] Liz Poole PA [facility] [place] [address] 06/10/2022 Office Visit Dermatology Laura Scherer MD [facility] DR [address]-DERMAT [place], [place] [address] (Wo rk) documented as of this encounter Visit Diagnoses Not on filedocumented in this encounter Care Teams Oil Well Shooter Relationship Specialty Start Date End Date Angela Holliday APRN PCP - General 01/25/13 04/15/[address] [place] [address] documented as of this encounter
--- OUTSIDE RECORDS SUMMARY | 2022-04-27 08:23 | XMS_ITS | Encounter Summary ---
:1945 Author Organization [facility] [place] [address] Care Team Providers Name Role Phone Angela Holliday APRN Primary Care Provider Encounter Details Date Type Department Care Team Description 03/28/2013 Surgery Main Operating Room Mesha Mcknight, THYROIDECTOMY[facility] DR Siddiqui [place] [address] [place] [address] [phone] (Wo rk) Social History Tobacco Use Types [...] please call the General Surgery nurse at [phone], since this may mean that you need morecalcium. Follow-up Appointment: Will be scheduled with Dr. Mcknight in 6 weeks Date and time as well as any required labs will be mailed to you Please call [phone] to confirm date and time of your [...] by calcium supplementation. Phone number for questions: [phone] before 5 PM weekdays [phone] after 5 PM and on weekends/holidays Please follow up with Urology as per their recommendations for Bob removal AttachmentsThe following attachments cannot be sent through Care Everywhere. THYROIDECTOMY: WHAT TO EXPECT AT HOME (FRENCH)URINARY CATHETER CARE: AFTER YOUR VISIT (FRENCH)documented in this encounter Medications at Time of [...] a 68 y.o. male presents to [facility] today for total thyroidectomy. See full [...] Operative Note Patient Name: Gregory Fatima : [id number] MR#: [id number] Case Date: 03/28/2013 Surgeon: Surgeon(s) and Role: [...] was extubated and taken to the [facility] in stable condition. At the end [...] Operative Note Patient Name: Gregory Fatima : [id number] MR#: [id number] Case Date: 03/28/2013 Surgeon: Surgeon(s) and Role: [...] MD [facility] er Dr [place] [address] (Wo rk) 05/28/2022 Laboratory Appointment Lab 05/28/2022 Office Visit Cardiology Zulma Dolan MD [facility] [place] [address] Liz Poole PA [facility] [place] [address] 06/10/2022 Office Visit Dermatology Laura Scherer MD [facility] ER DR TEJA GR-DERMAT [place] [address] (Wo rk) documented as of this encounter [...] City/State/[place] [address] CERNER MILLENNIUM (ABNORMAL) POCT [...] City/[facility]/[place] [address] CERNER MILLENNIUM (ABNORMAL) POCT [...] City/[facility]/ZIP Code Phon e Number [address] CERNER MILLENNIUM (ABNORMAL) [...] City/[facility]/ZIP Code Phon e Number [address] CERNER MILLENNIUM (ABNORMAL) [...] City/[facility]/ZIP Code Phon e Number [address] CERNER MILLENNIUM (ABNORMAL) [...] City/[facility]/ZIP Code Phon e Number [address] CERNER MILLENNIUM (ABNORMAL) [...] City/[facility]/ZIP Code Phon e Number [address] CERNER MILLENNIUM (ABNORMAL) [...] City/[facility]/ZIP Code Phon e Number [address] [facility] Specimen to Pathology (surgical or [...] City/[facility]/ZIP Code Phon e Number [address] [facility] Pathology Addendum Report (03/28/2013 12:03 PM EDT) Component Value Ref Test Analysis Performed At [facility] gist Range Method Time Signature Addendum CERNER Report ? [facility] ? Provider: ?? MESHA MCKNIGHT Pt. Name: ?? GREGORY FATIMA ? Acc #: ?[id number] ?Pt. MRN: ?[id number] ? Col Date: ?? 03/28/2013 ?/Sex: ?1945,(68 [...] Address City/State/[place] [address] [facility] Surgical Pathology Report (03/28/2013 12:03 PM EDT) Component Value Ref Test Analysis Performed At [facility] gist Range Method Time Signature Surgical [facility] Pathology ? [facility] Report ? Provider: ?? MESHA MCKNIGHT Pt. Name: ?? GREGORY FATIMA ? Acc #: ?[id number] ?Pt. MRN: ?[id number] ? Col Date: ?? 03/28/2013 ?/Sex: ?1945,(68 [...] areas of hemorrhage and ? calcifications. ? [facility] ? Provider: ?? MESHA MCKNIGHT Pt. Name: ?? GREGORY FATIMA ? Acc #: ?[id number] ?Pt. MRN: ?[id number] ? Col Date: ?? 03/28/2013 ?/Sex: ?1945,(68 years),Male ? Rec Date: ?? 03/28/2013 ?LOC: ?[facility] ? SURGICAL PATHOLOGY ? SECTIONS/PROCESSING: Electrician Telephone sections are subm itted. (R6) ? B [...] Address City/State/[place] [address] CERNER MILLENNIUM Frozen Section Report (03/28/2013 12:03 PM EDT) Component Value Ref Test Analysis Performed At [facility] gist Range Method Time Signature Frozen CERNER Section ? [facility] Report ? Provider: ?? MESHA MCKNIGHT Pt. Name: ?? GREGORY FATIMA ? Acc #: ?[id number] ?Pt. MRN: ?[id number] ? Col Date: ?? 03/28/2013 ?/Sex: ?1945,(68 [...] City/[facility]/[place] [address] CERNER MILLENNIUM POCT Glucose [...] City/[facility]/ZIP Code Phon e Number [address] CERNER MILLENNIUM Specimen to [...] City/[facility]/[place] [address] CERNER MILLENNIUM Antibody screen (03/28/2013 9:37 AM EDT) Analysis Performed At Patho logist Time Signature Ab Screen Negative CERNER Interp MILLENNIUM Expires at [id number] CERNER 570 on: MILLENNIUM Specimen Anatomical Collection Method Collection Time Receive d Time (Source) Location / / Volume Laterality Blood specimen 03/28/2013 9:37 AM 013 9:37 (specimen) EDT AM EDT Resulting Agency Comment Spec In Lab Mesha Mcknight MD BLOOD BANK ORDERABLES Performing Organization Address City/[facility]/[place] [address] [facility] GRISELDA[facility] ABO/Rh Typing (03/28/2013 9:37 AM EDT) athologist Signature ABORh Type O Pos [facility] Specimen Anatomical Collection Method Collection Time Receive d Time (Source) Location / / Volume Laterality Blood specimen 03/28/2013 9:37 AM 013 9:37 (specimen) EDT AM EDT Resulting Agency Comment Spec In Lab Mesha Mcknight MD BLOOD BANK ORDERABLES Performing Organization Address City/[facility]/ZIP Code Phon e Number [address] [facility] Differential, Automated (03/28/2013 [...] Organization Address City/State/ZIP Code Phon e Number [place] [phone]OS[address]ITAL [address] CERNER MILLENNIUM (ABNORMAL) Basic [...] Address City/State/[place] [address] CERNER MILLENNIUM (ABNORMAL) CBC [...] 12.0 CERNER fL [facility] Specimen Anatomical Collection Method Collection Time Receive d Time (Source) Location / / Volume Laterality Blood specimen 03/28/2013 9:34 AM 013 9:38 (specimen) EDT AM EDT Resulting Agency Comment Spec In Lab Mesha Mcknight MD HEMATOLOGY ORDERABLES Performing Organization Address City/[facility]/ZIP Code Phon e Number [address] [facility] POCT Glucose (03/28/2013 9:17 AM EDT) athologist Signature POC Glucose 108 60 - 199 CERNER mg/dL [facility] Comment: Supplemental ranges: <110 mg/dL before meals <200 mg/dL all other times of the day Specimen Anatomical Collection Method Collection Time Receive d Time (Source) Location / / Volume Laterality Blood specimen 03/28/2013 9:17 AM 013 9:17 (specimen) EDT AM EDT Mesha Mcknight MD POINT OF CARE TEST ORDERABLE S Performing Organization Address City/[facility]/ZIP Code Phon e Number [address] [facility] Specimen to Pathology (surgical or derm) (03/28/2013 8:55 AM EDT) Specimen Anatomical Collection Method Collection Time Receive d Time (Source) Location / / Volume Laterality AP Specimen 03/28/2013 8:55 AM 3 8:54 EDT AM EDT Narrative [facility] - 03/28/2013 8:55 AM E DT Specimen requisition ordered. ??Separate Pathology report to follow Mesha Mcknight MD PATHOLOGY/CYTOLOGY ORDERABLE S Performing Organization Address City/[facility]/ZIP Code Phon e Number [address] RAKESH WALKER documented in [...] RN) 0900 (Given - Provider: Radha Yao [facility], [facility]) 2.5 mg, Oral, DAILY, First [...] Rice)1247 (Anesthesia Volume Adjustment - Provider: Tessa Rcie) 1,000 mL, at 100 mL/hr, Intravenous, CON [...] override documented in this encounter Care Teams Fabric Worker Supervisor Relationship Specialty Start Date End Date Angela Holliday APRN PCP - General 01/25/13 04/15/15 [address] [place] [address] documented as of this encounter
--- OUTSIDE RECORDS SUMMARY | 2022-04-27 08:23 | XMS_ITS | Encounter Summary ---
:1945 Author Organization [facility] [place] [address] Care Team Providers Name Role Phone Brody Berrios MD Primary Care Provider Reason for Visit Reason Comments Annual Exam Encounter Details Date Type Department Care Team Description 09/22/2011 Follow-Up Dermatology Arik Tipton Psoriasis (Primary Dx); [facility] MD Jorge Personal history of other malignant neop lasm of skin Drive [place] [phone] DERMATOLOGY DEPT . [place] [address] (Wo rk) Social History Tobacco Use Types [...] changes: Arik Tipton MD Section of Dermatology [facility] documented in this encounter Plan of Treatment Upcoming Encounters Date Type Specialty Care Team Description 05/28/2022 Appointment Cardiology Zulma Dolan MD [facility] [address] [place], [place] [address] (Wo rk) 05/28/2022 Laboratory Appointment Lab 05/28/2022 Office Visit Cardiology Zulma Dolan MD [facility] [place] [address] Liz Poole PA [facility] [place] [address] 06/10/2022 Office Visit Dermatology Laura Scherer MD [facility] DR [address]-DERMAT [place], [place] [address] (Wo rk) documented as of this encounter Visit Diagnoses Diagnosis Psoriasis - Primary Other psoriasis Personal history of other malignant neop lasm of skin documented in this encounter Care Teams Well Head Pumper Relationship Specialty Start Date End Date Brody Berrios MD PCP - General 09/22/11 10/03/[address] [place] [address] documented as of this encounter
--- OUTSIDE RECORDS SUMMARY | 2022-04-27 08:23 | XMS_ITS | Encounter Summary ---
:1945 [place] [address] Care Team Providers Name Role Phone MiyaLokeshAngela STACIE Primary Care Provider Encounter Details Date Type Department Care Team Description 03/28/2013 Anesthesia Event Main Operating Room Meredith Calvert MD [facility] DR [place] [address] [facility] Nolvia Riojas PA [facility] [place] [address] [place] [address] Anesthesia Record Procedure Summary Procedure Name [...] Cardiology Zulma Dolan MD [facility] [place], [place] [address] (Wo rk) 05/28/2022 Laboratory Appointment Lab 05/28/2022 Office Visit Cardiology Zulma Dolan MD [facility] [place] [address] Liz Poole PA [facility] [place] [address] 06/10/2022 Office Visit Dermatology Laura Scherer MD [facility] DR TEJA GR[address]DERMAT [place], [place] [address] (Wo rk) documented as of [...] documented in this encounter Care Teams Associate Financial Analyst Relationship Specialty Start Date End Date Angela Holliday APRN PCP - General 01/25/13 04/15/[address] [place] [address] documented as of this encounter
--- OUTSIDE RECORDS SUMMARY | 2022-04-27 08:23 | XMS_ITS | Encounter Summary ---
:1945 Author Organization [facility] [place] [address] Care Team Providers Name Role Phone MiyaAngela STACIE Primary Care Provider Reason for Visit Reason Comments Urinary Retention Encounter Details Date Type Department Care Team Description 05/16/2013 Follow-Up Urology at [facility] Blade Smith, Retention of urine [facility] (Primary Dx) [place] [address] UROLOGY DEPT [place] [address] (Wo rk) Social History Tobacco [...] [facility] Dr [place], [place] [address] (Wo rk) 05/28/2022 Laboratory Appointment Lab 05/28/2022 Office Visit Cardiology Zulma Dolan MD [facility] [place] [address] Liz Poole PA [facility] [place] [address] 06/10/2022 Office Visit Dermatology Laura Scherer MD [facility] [address] TEJA GR-DERMAT [place], [place] [address] (Wo rk) documented as of this encounter Visit Diagnoses Diagnosis Retention of urine - Primary Retention of urine, unspecified documented in this encounter Care Teams Archeology Professor Relationship Specialty Start Date End Date Angela Holliday APRN PCP - General 01/25/13 04/15/[address] [place] [address] documented as of this encounter
--- OUTSIDE RECORDS SUMMARY | 2022-04-27 08:23 | XMS_ITS | Encounter Summary ---
:1945 Author Organization [facility] [place] [address] Care Team Providers Name Role Phone MiyaLokeshAngela STACIE Primary Care Provider Reason for Visit Reason Onset Date Comments Post-op Problem 04/05/2013 voiding trial Encounter Details Date Type Department Care Team Description 04/05/2013 Telephone Urology at [facility] Blade Smith, Post-op Problem [facility] (voiding trial) [place] [address] UROLOGY DEPT [place] [id number] (Wo rk) Social History Tobacco Use Types [...] Dolan MD [facility] [address] [place], [place] [address] (Wo rk) 05/28/2022 Laboratory Appointment Lab 05/28/2022 Office Visit Cardiology Zulma Dolan MD [facility] [place] [address] Liz Poole PA [facility] [place] [address] 06/10/2022 Office Visit Dermatology Laura Scherer MD [facility] [address] TEJA GR-DERMAT [place], [place] 0[address] (Wo rk) documented as of this encounter Visit Diagnoses Not on filedocumented in this encounter Care Teams Batch And Furnace Operator Relationship Specialty Start Date End Date Angela Holliday APRN PCP - General 01/25/13 04/15/[address] [place] [address] documented as of this encounter
--- OUTSIDE RECORDS SUMMARY | 2022-04-27 08:23 | XMS_ITS | Encounter Summary ---
:1945 Author Organization [place] [address] Care Team Providers Name Role Phone Angela Holliday APRN Primary Care Provider Reason for Visit Reason Comments Other Encounter Details Date Type Department Care Team Description 08/01/2013 Telephone Dermatology at [facility] Rigoberto Garcia III, [address] [place] [address] [facility] [phone] TEJA MARIE-DERMAT [place], [place] [address] (Wo rk) Social History Tobacco [...] Value Surgical Pathology Final Report [facility] Provider: RIGOBERTO GARCIA III Pt. Name: DON HOANG Acc #: [id number] Pt. Col Date: 07/31/2013 /Sex: 1945,(68 years),Male Rec Date: 07/31/2013 LOC: [facility] SURGICAL PATHOLOGY ---Pathologic Diagnosis--- Skin, right [...] Cardiology Zulma Dolan MD [facility] [place], [place] [address] (Wo lissa) 05/28/2022 Laboratory Appointment Lab 05/28/2022 Office Visit Cardiology Zulma Dolan MD [facility] [place] [address] Liz Poole PA [facility] [place] [address] 06/10/2022 Office Visit Dermatology Laura Scherer MD [facility] [address] TEJA MARIE-DERMAT [place], [place] [address] (Wo rk) documented as of this encounter Visit Diagnoses Not on filedocumented in this encounter Care Teams Video Production Specialist Relationship Specialty Start Date End Date Angela Holliday APRN PCP - General 01/25/13 04/15/[address] [place] [address] documented as of this encounter
--- OUTSIDE RECORDS SUMMARY | 2022-04-27 08:23 | XMS_ITS | Encounter Summary ---
:1945 Author Organization [facility] [place] [address] Care Team Providers Name Role Phone Angela Holliday APRN Primary Care Provider Reason for Visit Reason Comments Benign Prostatic Hypertrophy Encounter Details Date Type Department Care Team Description 11/28/2013 Follow-Up Urology at [facility] Blade Smith, Urinary retention (Primary D x); [facility] BPH (benign prostatic hyperplasia) [place] [address] UROLOGY DEPT [place], [place] [address] (Wo rk) Social History Tobacco [...] Zulma Dolan MD [facility] [address] [place], [place] [address] (Wo rk) 05/28/2022 Laboratory Appointment Lab 05/28/2022 Office Visit Cardiology Zulma Dolan MD [facility] [place] [address] Liz Poole PA [facility] [place] [address] 06/10/2022 Office Visit Dermatology Laura Scherer MD [facility] DR TEJA GR-DERMAT [place], [place] 0[address] (Wo rk) documented as of [...] Organization Address City/State/[place] [address] CERNER MILLENNIUM documented in this encounter Visit Diagnoses Diagnosis Urinary retention - Primary Retention of urine, unspecified BPH (benign prostatic hyperplasia) Unspecified hyperplasia of prostate with out urinary obstruction and other lower urinary tract symptoms (LUTS) documented in this encounter Care Teams Crate Liner Relationship Specialty Start Date End Date Angela Holliday APRN PCP - General 01/25/13 04/15/[address] [place] [address] documented as of this encounter
--- OUTSIDE RECORDS SUMMARY | 2022-04-27 08:23 | XMS_ITS | Encounter Summary ---
:1945 [place] [address] Care Team Providers Name Role Phone Holley Hollidayica STACIE Primary Care Provider Encounter Details Date Type Department Care Team Description 03/28/2013 - [facility] 03/29/2013 Barbara Gomes MD Dx) [facility] DR Siddiqui [place] [address] [phone] Social History Tobacco Use Types Packs/Day Years [...] please call the General Surgery nurse at [phone], since this may mean that you need morecalcium. Follow-up Appointment: Will be scheduled with Dr. Mcknight in 6 weeks Date and time as well as any required labs will be mailed to you Please call [phone] to confirm date and time of your [...] by calcium supplementation. Phone number for questions: [phone] before 5 PM weekdays [phone] after 5 PM and on weekends/holidays Please [...] Willams MD - 03/28/2013 3:43 PM EDT [facility] Operative Note Patient Name: Gregory Fatima : [id number] MR#: [id number] Case Date: 03/28/2013 Surgeon: Surgeon(s) and Role: [...] Operative Note Patient Name: Gregory Fatima : [id number] MR#: [id number] Case Date: 03/28/2013 Surgeon: Surgeon(s) and Role: [...] [facility] er [address] [place] [address] (Wo rk) 05/28/2022 Laboratory Appointment Lab 05/28/2022 Office Visit Cardiology Zulma Dolan MD [facility] [place] [address] Liz Poole PA [facility] [place] [address] 06/10/2022 Office Visit Dermatology Laura Scherer MD [facility] ER DR TEJA GR-DERMAT [place] [address] (Wo rk) documented as of this encounter [...] Organization Address City/State/[place] [address] CERNER MILLENNIUM (ABNORMAL) POCT [...] City/[facility]/[place] [address] CERNER MILLENNIUM (ABNORMAL) POCT [...] City/[facility]/ZIP Code Phon e Number [address] CERNER MILLENNIUM (ABNORMAL) POCT [...] City/[facility]/ZIP Code Phon e Number [address] CERNER MILLENNIUM (ABNORMAL) POCT [...] City/[facility]/ZIP Code Phon e Number [address] CERNER MILLENNIUM (ABNORMAL) POCT [...] City/[facility]/ZIP Code Phon e Number [address] CERNER MILLENNIUM (ABNORMAL) POCT [...] City/[facility]/ZIP Code Phon e Number [address] CERNER MILLENNIUM (ABNORMAL) POCT [...] City/[facility]/ZIP Code Phon e Number [address] [facility] Specimen to Pathology (surgical or [...] City/[facility]/ZIP Code Phon e Number [address] [facility] Pathology Addendum Report (03/28/2013 12:03 PM EDT) Component Value Ref Test Analysis Performed At [facility] gist Range Method Time Signature Addendum CERNER Report ? [facility] [place][note 2] ? Provider: ?? MESHA MCKNIGHT Pt. Name: ?? GREGORY FATIMA ? Acc #: ?[id number] ?Pt. MRN: ?[id number] ? Col Date: ?? 03/28/2013 ?/Sex: ?1945,(68 [...] City/State/[place] [address] [facility] Surgical Pathology Report (03/28/2013 12:03 PM EDT) Component Value Ref Test Analysis Performed At [facility] gist Range Method Time Signature Surgical [facility] Pathology ? [facility] [place][note 2] Report ? Provider: ?? MESHA MCKNIGHT Pt. Name: ?? GREGORY FATIMA ? Acc #: ?[id number] ?Pt. MRN: ?[id number] ? Col Date: ?? 03/28/2013 ?/Sex: ?1945,(68 [...] areas of hemorrhage and ? calcifications. ? [facility] ? Provider: ?? MESHA MCKNIGHT Pt. Name: ?? GREGORY FATIMA ? Acc #: ?[id number] ?Pt. MRN: ?[id number] ? Col Date: ?? 03/28/2013 ?/Sex: ?1945,(68 years),Male ? Rec Date: ?? 03/28/2013 ?LOC: ?[facility] ? SURGICAL PATHOLOGY ? SECTIONS/PROCESSING: Educational Diagnostician sections are subm itted. (R6) ? B [...] City/State/[place] [address] CERNER MILLENNIUM Frozen Section Report (03/28/2013 12:03 PM EDT) Component Value Ref Test Analysis Performed At [facility] gist Range Method Time Signature Frozen CERNER Section ? [facility] Report ? Provider: ?? MESHA MCKNIGHT Pt. Name: ?? GREGORY FATIMA ? Acc #: ?[id number] ?Pt. MRN: ?[id number] ? Col Date: ?? 03/28/2013 ?/Sex: ?1945,(68 [...] City/[facility]/[place] [address] CERNER MILLENNIUM POCT Glucose [...] City/[facility]/ZIP Code Phon e Number [address] CERNER MILLENNIUM Specimen to [...] City/[facility]/[place] [address] CERNER MILLENNIUM Antibody screen (03/28/2013 9:37 AM EDT) Analysis Performed At Patho logist Time Signature Ab Screen Negative CERNER Interp MILLENNIUM Expires at [id number] CERNER 486 on: MILLENNIUM Specimen Anatomical Collection Method Collection Time Receive d Time (Source) Location / / Volume Laterality Blood specimen 03/28/2013 9:37 AM 013 9:37 (specimen) EDT AM EDT Resulting Agency Comment Spec In Lab Mesha Mcknight MD BLOOD BANK ORDERABLES Performing Organization Address City/[facility]/[place] [address] [facility] GRISELDAENNIUM ABO/Rh Typing (03/28/2013 9:37 AM EDT) athologist Signature ABORh Type O Pos [facility] Specimen Anatomical Collection Method Collection Time Receive d Time (Source) Location / / Volume Laterality Blood specimen 03/28/2013 9:37 AM 013 9:37 (specimen) EDT AM EDT Resulting Agency Comment Spec In Lab Mesha Mcknight MD BLOOD BANK ORDERABLES Performing Organization Address City/[facility]/ZIP Code Phon e Number [address] [facility] Differential, Automated (03/28/2013 9:34 [...] City/State/ZIP Code Phon e Number [place] [phone]OS[address] CERNER MILLENNIUM (ABNORMAL) Basic [...] intervals supplied above were not validated at [facility]. Results from pediatri c [...] City/State/[place] [address] CERNER MILLENNIUM (ABNORMAL) CBC [...] 12.[address] [facility] Specimen Anatomical Collection Method Collection Time Receive d Time (Source) Location / / Volume Laterality Blood specimen 03/28/2013 9:34 AM 013 9:38 (specimen) EDT AM EDT Resulting Agency Comment Spec In Lab Mesha Mcknight MD HEMATOLOGY ORDERABLES Performing Organization Address City/[facility]/ZIP Code Phon e Number [address] [facility] POCT Glucose (03/28/2013 9:17 AM EDT) athologist Signature POC Glucose 108 60 - 199 CERNER mg/dL [facility] Comment: Supplemental ranges: <110 mg/dL before meals <200 mg/dL all other times of the day Specimen Anatomical Collection Method Collection Time Receive d Time (Source) Location / / Volume Laterality Blood specimen 03/28/2013 9:17 AM 013 9:17 (specimen) EDT AM EDT Mesha Mcknight MD POINT OF CARE TEST ORDERABLE S Performing Organization Address City/[facility]/ZIP Code Phon e Number [address] [facility] Specimen to Pathology (surgical or derm) (03/28/2013 8:55 AM EDT) Specimen Anatomical Collection Method Collection Time Receive d Time (Source) Location / / Volume Laterality AP Specimen 03/28/2013 8:55 AM 3 8:54 EDT AM EDT Narrative [facility] GRISELDAENNIUM - 03/28/2013 8:55 AM E DT Specimen requisition ordered. ??Separate Pathology report to follow Mesha Mcknight MD PATHOLOGY/CYTOLOGY ORDERABLE S Performing Organization Address City/[facility]/ZIP Code Phon e Number [address] [facility] documented in this encounter Visit Diagnoses [...] 0900 (Given - Provider: Radha Yao [facility], RN) 2.5 mg, Oral, DAILY, First [...] (COMPLETED) 1999 (Given - Provider: Kesha Gracia, VAMIS) 0400 (Given - Provider: Waldo covington RN) [...] mL (CANCELED) 0900 (Not Given - Provider: aCmi Baxter RN - Reason: Transfer to a [...] override documented in this encounter Care Teams Production Administrative Assistant Relationship Specialty Start Date End Date Angela Holliday APRN PCP - General 01/25/13 04/15/15 [address] [place] [address] documented as of this encounter
--- OUTSIDE RECORDS SUMMARY | 2022-04-27 08:23 | XMS_ITS | Encounter Summary ---
:1945 Author Organization [facility] [address] Care Team Providers Name Role Phone eNilSom conner STACIE Primary Care Provider Reason for Visit Reason Comments Establish Care OBST GOITER Encounter Details Date Type Department Care Team Description 01/25/2013 Office Visit General Surgery at Manny Mcknight er colloid, toxic, [facility] MD Eliseo nodular (Primary Dx) [facility] [place], [place] GENERAL SURGERY [id number] [place], [place] [address] [phone] Social History Tobacco Use Types Packs/Day Years [...] the thyroid gland were obtained using a SonoSiBridgeXs MicroMaxx and an HFL38/13-6 broadband linear array [...] Will sign in through [facility]. Consent is signed. Send copy to Dr. SOM HOLLIDAY APRN and Elijah Elias MD. documented in this encounter Plan of Treatment Upcoming Encounters Date Type Specialty Care Team Description 05/28/2022 Appointment Cardiology Zulma Dolan MD [facility] [address] [place] [address] (Wo rk) 05/28/2022 Laboratory Appointment Lab 05/28/2022 Office Visit Cardiology Zulma Dolan MD [facility] [place] [address] Liz Poole PA [facility] [place] [address] 06/10/2022 Office Visit Dermatology Laura Scherer MD [facility] DR TEJA GR-DERMAT [place], [place] [address] (Wo rk) documented as of [...] 406 ms MUSE SYSTEM (Bezet) Calculated P [place] 52 degrees MUSE SYSTEM Calculated R [place] 0 degrees MUSE SYSTEM Calculated T [place] 40 degrees MUSE SYSTEM INTERPRETATION Normal sinus [...] storm documented in this encounter Care Teams Process Automation Engineer Relationship Specialty Start Date End Date Som Holliday APRN PCP - General 01/25/13 04/15/[address] [place] [address] documented as of this encounter
--- OUTSIDE RECORDS SUMMARY | 2022-04-27 08:23 | XMS_ITS | Encounter Summary ---
:1945 Author Organization [facility] [place] [address] Care Team Providers Name Role Phone MiyaLokeshAngela STACIE Primary Care Provider Encounter Details Date Type Department Care Team Description 01/16/2014 Hospital Encounter Gastroenterology at [facility] Nohemi Swann, [facility] [place] [address] [facility] [phone] [place] [facility]. [place], [place] [address] Social History Tobacco Use [...] you need to be checked. [facility] [phone] 8a-5p Same Day Endo [phone] 7a-8p Otherwise contact [phone] and ask to speak to the nutrition services associate internet application developer Follow up care is a shelton part [...] MD - 01/16/2014 9:49 AM EDT [facility] Operative Note Patient Name: Gregory Fatima : [id number] MR#: [id number] Case Date: 01/16/2014 Surgeon: Surgeon(s) and Role: * Nohemi Swann MD - Primary Preoperative diagnosis: 5 yr surv. Full procedure note is documented under the Procedure section of eDH. documented in this encounter Plan of Treatment Upcoming Encounters Date Type Specialty Care Team Description 05/28/2022 Appointment Cardiology Zulma Dolan MD [facility] Dr [place], [place] [address] (Wo rk) 05/28/2022 Laboratory Appointment Lab 05/28/2022 Office Visit Cardiology Zulma Dolan MD [facility] [place] [address] Liz Poole PA [facility] [place] [address] 06/10/2022 Office Visit Dermatology Laura Scherer MD [facility] DR TEJA GR-DERMAT [place], [place] [address] (Wo rk) documented as of this encounter [...] MALICKEliseo RT, GREGORY E ? Acc #: ?[id number] ?Pt. MRN: ?[id number] ? Col Date: ?? 4 ? /Sex: [...] City/State/ZIP Code Phon e Number [place] [phone] [address]OSPITAL LAB[address] RAKESH WALKER Specimen to [...] Organization Address City/State/[place] [address] [facility]EL [facility] Specimen to Pathology (surgical or [...] [facility] [place] [address] CERNER MILLENNIUM COLONOSCOPY (01/16/2014 7:25 AM EDT) [facility] gist Method Time Signature COLONOSCOPY [facility] Endoscopy Patient Name: Gregory Fatima ? Procedure Date: 01/16/2014 7:25 AM ? N: [id number] ? Date of : 1945 ? Age: 68 ? Order #: [id number] ? Procedure: ? Colonoscopy Indications: ? High risk colon cancer surveillance : ? 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 dm on metformin with bs ~ 110 this ? am,s/p melanoma years ago, os a, ? goiter s/p surgery, [facility] Providers: ? Nohemi Swann MD, Blanca [...] Laterality 01/16/2014 7:25 AM EDT Angela Sotelo GANG INVESTIGATOR GENERAL SURGICAL ORDERABLES Performing Organization Address City/State/ZIP [...] Routine documented in this encounter Care Teams Mainspring Former Relationship Specialty Start Date End Date Angela Sotelo APRN PCP - General 01/25/13 04/15/[address] [place] [address] documented as of this encounter
--- OUTSIDE RECORDS SUMMARY | 2022-04-27 08:23 | XMS_ITS | Encounter Summary ---
:1945 Author Organization [facility] [place] [address] Care Team Providers Name Role Phone MiyaAngela STACIE Primary Care Provider Reason for Visit Reason Comments Post Op voiding trial Encounter Details Date Type Department Care Team Description 04/05/2013 Office Visit Urology at [facility] Darryl Egan, UTI ([facility] MD tract infection) [facility] (Primary Dx) [place] [address] UROLOGY DEPT [phone] [place], [place] [address] Social History Tobacco Use Types [...] Zulma Dolan MD [facility] [place], [place] 0[address] (Wo rk) 05/28/2022 Laboratory Appointment Lab 05/28/2022 Office Visit Cardiology Zulma Dolan MD [place] [address] Liz Poole PA [facility] [place] [address] 06/10/2022 Office Visit Dermatology Laura Scherer MD [facility] DR TEJA GR-DERMAT [place], [place] [address] (Wo rk) documented as of this encounter Procedures Procedure Name Priority Date/Time Associated Diagnosis Comme nts URINE CULTURE Routine 04/05/2013 11:48 AM UTI (lower urinary R esults for this EDT tract infection) procedure a re in the results section . documented in this encounter Results Urine culture Clean Catch Urine (04/05/2013 11:48 AM EDT) Component Value Ref Test Analysis Performed At [facility] Method Time Signature Urine Culture CERNER ? Patient Name: GREGORY HOANG ? Ordered By: DARRYL EGAN [facility] ? MR#: [id number] ?LOC: ??5B ? /Sex: ??1945 (68 years), ? Male ? PROCEDURE: Urine Culture ?SOURCE: U CC ? COLLECTED: 04/05/2013 11:48 ? STARTED: 04/05/2013 13:54 ? FINAL REPORT ? Final Report ? Verified:04/07/2013 11:39 ? Greater than 100,000 cfu/ml Citrobacter freundii comp nanice ? PRELIMINARY REPORT ? Preliminary Report ? [...] S ? Patient: GREGORY HOANG ? MR#: [id number] ? FOOTNOTES ? (1) ? This organism [...] Organization Address City/State/[place] [address] RAKESH WALKER documented in this encounter Visit Diagnoses Diagnosis UTI (lower urinary tract infection) - Pr imary Urinary tract infection, site not specif ied documented in this encounter Care Teams Product/Device Technologist Relationship Specialty Start Date End Date Angela Holliday APRN PCP - General 01/25/13 04/15/[address] [place] [address] documented as of this encounter
--- OUTSIDE RECORDS SUMMARY | 2022-04-27 08:23 | XMS_ITS | Encounter Summary ---
:1945 Author Organization [place] [address] Care Team Providers Name Role Phone Miya Angela STACIE Primary Care Provider Encounter Details Date Type Department Care Team Description 04/24/2013 Telephone Urology at [facility] Zhen Bowman MD [facility] [place] [address] UROLOGY DEPT [phone] [place], [place] [address] (Wo rk) Social History Tobacco [...] Zulma Dolan MD [facility] [place], [place] [address] (Wo rk) 05/28/2022 Laboratory Appointment Lab 05/28/2022 Office Visit Cardiology Zulma Dolan MD [facility] [place] [address] Liz Poole PA [facility] [place] [address] 06/10/2022 Office Visit Dermatology Laura Scherer MD [facility] DR TEJA GR-DERMAT [place], [place] [address] (Wo rk) documented as of this encounter Visit Diagnoses Not on filedocumented in this encounter Care Teams Access Assoc Relationship Specialty Start Date End Date Angela Holliday APRN PCP - General 01/25/13 04/15/[address] [place] [address] documented as of this encounter
--- OUTSIDE RECORDS SUMMARY | 2022-04-27 08:23 | XMS_ITS | Encounter Summary ---
:1945 Author Organization [facility] [place] [address] Care Team Providers Name Role Phone Angela Holliday APRN Primary Care Provider Reason for Visit Reason Comments Skin Check Encounter Details Date Type Department Care Team Description 07/31/2013 Follow-Up Dermatology at [facility] eoplasm of unspecified nature of bone, soft tissue, and skin (Primary Dx); Abdelrahman HOOPER MD Seborrheic psoriasis- scalp and ingtergl uteal area; [address] [facility] Atypical nevus [place] [address] [facility] [place], [place] [address] (Wo rk) Social History Tobacco [...] Zulma Dolan MD [facility] [address] [place] [address] (Wo lissa) 05/28/2022 Laboratory Appointment Lab 05/28/2022 Office Visit Cardiology Zulma Dolan MD [facility] [place] [address] Liz Poole PA [facility] [place] [address] 06/10/2022 Office Visit Dermatology Laura Scherer MD [facility] [address] [facility], [place] [address] (Wo rk) Scheduled Orders Name [...] Component Value Ref Test Analysis Performed At [facility] gist Range Method Time Signature Surgical CERNER Pathology ? [facility] Report ? Provider: ?? RIGOBERTO ALBARRAN III Pt. Name: ?? GREGORY HOANG ?A ? Acc #: ?[id number] ? Pt. ? Col Date: ?? 07/31/2013 [...] negative controls. ??These ? IHC studies provide [facility] pathologist with adjunctive diagnostic information. ? Antibody [...] 0.8 x 0.2 cm. ? [facility] ? Provider: ?? DEION III, RIGOBERTO Pt. Name: ?? GREGORY HOANG ?A ? Acc #: ?[id number] ? Pt. ? Col Date: ?? 07/31/2013 [...] [facility]/ZIP Code Phon e Number [address] CERNER MILLENNIUM Specimen to [...] [facility]/[place] [address] CERNER MILLENNIUM documented in this encounter Visit Diagnoses Diagnosis Neoplasm of unspecified nature of bone, soft tissue, and skin - Primary Seborrheic psoriasis- scalp and ingtergl uteal area Other psoriasis Atypical nevus of abdominal wall Benign neoplasm of skin of trunk, except scrotum documented in this encounter Care Teams Assembling Motor Builder Relationship Specialty Start Date End Date Angela Holliday APRN PCP - General 01/25/13 04/15/[address] [place] [address] documented as of this encounter
--- OUTSIDE RECORDS SUMMARY | 2022-04-27 08:23 | XMS_ITS | Encounter Summary ---
:1945 Author Organization [facility] [place] [address] Care Team Providers Name Role Phone MiyaAngela STACIE Primary Care Provider Reason for Visit Reason Onset Date Comments Advice Only 03/31/2013 Encounter Details Date Type Department Care Team Description 03/31/2013 Telephone Urology at [facility] Daniele Trejo III, MD Advice Only [facility] [place] [address] [place] [id number] [phone] (Wo rk) Social History Tobacco Use Types [...] Cardiology Zulma Dolan MD [facility] [place], [place] [address] (Wo rk) 05/28/2022 Laboratory Appointment Lab 05/28/2022 Office Visit Cardiology Zulma Dolan MD [place] [address] Liz Poole PA [facility] [place] [address] 06/10/2022 Office Visit Dermatology Laura Scherer MD [facility] [address] [facility] [place], [place] [address] (Wo rk) documented as of this encounter Visit Diagnoses Not on filedocumented in this encounter Care Teams Architecture Professor Relationship Specialty Start Date End Date Angela Holliday APRN PCP - General 01/25/13 04/15/[address] [place] [address] documented as of this encounter
--- OUTSIDE RECORDS SUMMARY | 2022-04-27 08:25 | XMS_ITS | Clinical Summary ---
:1945 Author Organization [facility] Address [address] [place] [address] Care Team Providers Name Role Phone Lovely [...] i n the results section. COVID-19 TEST [facility] Today 01/27/2022 14:30 LAB PCR EDT COVID-19 TESTING Routine 01/27/2022 14:30 Results for this EDT procedure are i n the results section. from Last 3 Months Results PSA TOTAL, DIAGNOSTIC (02/20/2022 9:04 EDT) Pathologist Sig nature PSA 2.7 <=6.5 ng/mL [facility] Specimen Blood - Venous blood (substance) Narrative [facility] - 02/20/2022 18:17 EDT NOTE: Serum PSA concentration should not be in terpreted as absolute evidence for the presence or absence of malignant disease. Assayed on Siemens ADVIA Centaur XPT usi ng chemiluminescent technology.??Values obtained by using different assay methods cannot be used interchangeably. Performing Organization Address City/State/ZIP Code Phon e Number [facility] [address] [place] [address] SERVICES COVID-19 TEST [facility] LAB PCR (01/27/2022 14:30 EDT) Specimen Swab Performing Organization Address City/[facility]/ZIP Code Phon e Number [facility] [address] [place] [address] SERVICES COVID-19 TESTING (01/27/2022 14:30 EDT) COVID-19 rt-PCR Negative Negative [facility] MEDICAL Result Comment: CENTER [...] performed using the meliton SARS-CoV-2 assay ([employer] on the Meliton 6800 System Performing Lab [place] [address] [facility] Lab [facility] Specimen Swab Performing Organization Address City/[facility]/ZIP Code Phon e Number [facility] [address] [place] [address] SERVICES from Last 3 Months Care Teams Chemical Checker Relationship Specialty Start Date End Date Lovely Vicente MD PCP - General 07/13/14
--- OUTSIDE RECORDS SUMMARY | 2022-04-27 08:25 | XMS_ITS | Encounter Summary ---
:1945 Author Organization [facility] Address [address] [place] [address] Care Team Providers Name Role Phone Lovely Vicente MD Primary Care Provider Encounter Details Date Type Department Care Team Description 01/28/2022 Lab Requisition [facility] Outr Resulting Lab, Pathology & Laboratory Provider [facility] [address] [place] [address] Social History Tobacco Use Types Packs/Day Years Used Date Never Assessed Sex Assigned at Date Recorded Not on file documented as of this encounter Plan of Treatment Not on filedocumented as of this encounter Procedures Procedure Name Priority Date/Time Associated Diagnosis Comme nts COVID-19 TEST [facility] Today 01/27/2022 14:30 LAB PCR EDT COVID-19 TESTING Routine 01/27/2022 14:30 Results for this EDT procedure are i n the results section. documented in this encounter Results COVID-19 TEST [facility] LAB PCR (01/27/2022 14:30 EDT) Specimen Swab Performing Organization Address City/State/ZIP Code Phon e Number [facility] [address] [place] [address] SERVICES COVID-19 TESTING (01/27/2022 14:30 EDT) COVID-19 [...] was performed using the meliton SARS-CoV-2 assay ([employer] on the Meliton 6800 System Performing Lab [address] [address] [facility] Lab [facility] Specimen Swab Performing Organization Address City/State/ZIP Code Phon e Number [facility] [address] [place] [address] SERVICES documented in this encounter Visit Diagnoses Not on filedocumented in this encounter Care Teams Residential Gas Heat Technician Relationship Specialty Start Date End Date Lovely Vicente MD PCP - General 07/13/14 documented as of this encounter
--- OUTSIDE RECORDS SUMMARY | 2022-04-27 08:25 | XMS_ITS | Encounter Summary ---
:1945 Author Organization [facility] Address [address] [place] [address] Care Team Providers Name Role Phone Lovely Vicente MD Primary Care Provider Encounter Details Date Type Department Care Team Description 08/11/2019 Lab Requisition [facility] Unknown, Provider, Pathology & Laboratory [facility] [address] [place] [address] Social History Tobacco Use Types Packs/Day Years [...] [facility] Shigella/Enteroinvasive Negative Negative [facility] R E. coli LABORATORY SERVICES [facility] LAB CAMPYLOBACTER PCR Negative Negative [facility] Shiga Toxin PCR Negative Negative [facility] Specimen Feces - Specimen from rectum (specimen) Performing Organization Address City/State/ZIP Code Phon e Number [facility] [address] [place] [address] SERVICES documented in this encounter Visit Diagnoses Not on filedocumented in this encounter Care Teams Wharfmaster Relationship Specialty Start Date End Date Lovely Vicente MD PCP - General 07/13/14 documented as of this encounter
--- OUTSIDE RECORDS SUMMARY | 2022-04-27 08:25 | XMS_ITS | Encounter Summary ---
:1945 Author Organization [facility] Address [address] [place] [address] Care Team Providers Name Role Phone Lovely Vicente MD Primary Care Provider Encounter Details Date Type Department Care Team Description 01/01/2020 Lab Requisition [facility] Outr Resulting Lab, Pathology & Laboratory Provider [facility] [address] [place] [address] Social History Tobacco Use Types Packs/Day Years [...] 2.1 0.0 - 6.5 ng/mL [facility] Specimen Blood - Venous blood (substance) Narrative [facility] - 01/02/2020 10:40 EDT NOTE: Serum PSA concentration should not be in terpreted as absolute evidence for the presence or absence of malignant disease. Assayed on Siemens [employer] Centaur XPT usi ng chemiluminescent technology.??Values obtained by using different assay methods cannot be used interchangeably. Performing Organization Address City/State/ZIP Code Phon e Number [facility] [address] [place] [address] SERVICES documented in this encounter Visit Diagnoses Not on filedocumented in this encounter Care Teams Vendor Specialist Relationship Specialty Start Date End Date Lovely Vicente MD PCP - General 07/13/14 documented as of this encounter
--- OUTSIDE RECORDS SUMMARY | 2022-04-27 08:25 | XMS_ITS | Encounter Summary ---
:1945 Author Organization [facility] Address [address] [place] [address] Care Team Providers Name Role Phone Lovely Vicente MD Primary Care Provider Encounter Details Date Type Department Care Team Description 08/11/2019 Lab Requisition [facility] Unknown, Provider, Pathology & Laboratory [facility] [address] [facility] [place] [address] Social History Tobacco Use Types Packs/Day Years [...] (08/11/2019 14:35 EST) Giardia and Cryptosporidium Cryptosporidium [facility] Cryptosporidium Antigen Neg and Antigen Neg and CENTER Giardia Antigen Neg Giardia Antigen Neg LABORATORY SERVICES Specimen Feces - Specimen from rectum (specimen) Performing Organization Address City/State/ZIP Code Phon e Number [facility] [address] [place] [address] SERVICES documented in this encounter Visit Diagnoses Not on filedocumented in this encounter Care Teams Registered Dietician Relationship Specialty Start Date End Date Lovely Vicente MD PCP - General 07/13/14 documented as of this encounter
--- OUTSIDE RECORDS SUMMARY | 2022-04-27 08:25 | XMS_ITS | Encounter Summary ---
:1945 Author Organization [facility] Address [address] [place] [address] Care Team Providers Name Role Phone Lovely Vicente MD Primary Care Provider Encounter Details Date Type Department Care Team Description 04/04/2021 Lab Requisition [facility] Outr Resulting Lab, Pathology & Laboratory Provider [facility] [address] [place] [address] Social History Tobacco Use Types Packs/Day Years [...] (04/03/2021 12:15 EDT) Giardia and Cryptosporidium Cryptosporidium [facility] Cryptosporidium Antigen Neg and Antigen Neg and CENTER Giardia Antigen Neg Giardia Antigen Neg LABORATORY SERVICES Specimen Feces - Specimen from rectum (specimen) Performing Organization Address City/State/ZIP Code Phon e Number [facility] [address] [place] [address] SERVICES documented in this encounter Visit Diagnoses Not on filedocumented in this encounter Care Teams Ems Driver Relationship Specialty Start Date End Date Lovely Vicente MD PCP - General 07/13/14 documented as of this encounter
--- OUTSIDE RECORDS SUMMARY | 2022-04-27 08:25 | XMS_ITS ---
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 Problem Critical ischemia I99.8 Active of lower extremity Problem Atherosclerosis I70.90 Active 3871 6007 Problem Type 2 diabetes E11.628 Active mellitus with other skin complications Problem 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 40 ; Acquired deformi ty of right foot M21.961 ; L luis term current use of i nsulin Z79.4 ; History of art erial bypass of lower extremi ty Z95.828 ; Atherosclerosis I70.90 and History of Lisfr anc amputation of fo ot Z89.439 [address] Feb, Type 2 diabet es mellitus [address] [place], [place] with diabe tic neuropathy, [address] unspecified E11. 40 ; Acquired deformi ty of right foot M21.961 ; L luis term current use of i nsulin Z79.4 ; History of art erial bypass of lower extremi ty Z95.828 ; Atherosclerosis I70.90 and History of Lisfr anc amputation of fo ot Z89.439 [facility] November, [place] [address] [facility] [facility] November, Type 2 [place] [address] with diabeti c neuropathy, unspecified E11. 40 ; Acquired deformi ty of right foot M21.961 ; L luis term current use of i nsulin Z79.4 ; History of art erial bypass of lower extremi ty Z95.828 ; Atherosclerosis I70.90 and History of Lisfr anc amputation of fo ot Z89.439 [facility] 10 Aug, 2019 Type 2 [place] [address] with other skin complications E1 1.628 ; Tinea pedis of l eft foot B35.3 ; Type 2 d iabetes mellitus with di abetic neuropathy, unsp ecified E11.40 ; Acquire d deformity of right foot M2 1.961 ; correction current use of insulin Z79.4 ; History of arterial bypass of lower extremity Z95.828 and Athe rosclerosis I70.90 [facility] Jun, [place] [address] [address] Jun, [place] [address] [address] Jun, Type 2 diabet es mellitus [place], [place] with other skin [address] complications E1 1.628 ; Acquired deformi ty of right foot M21.961 ; T ype 2 diabetes mellitu s with diabetic neuropa thy, unspecified E11. 40 ; rn long term care current use of insulin Z79.4 and Histor y of arterial bypass of lower extremity Z95.82 8 [facility] Feb, Type 2 [place] [address] with other s kin complications E1 1.628 ; Acquired deformi ty of right foot M21.961 ; T ype 2 diabetes mellitu s with diabetic neuropa thy, unspecified E11. 40 ; correction current use of insulin Z79.4 and Histor y of arterial bypass of lower extremity Z95.82 8 [address] November, Tinea pedis o f left foot [place], [place] B35.3 ; Ty pe 2 diabetes [address] mellitus with ot her skin complications E1 1.628 ; Acquired deformi ty of right foot M21.961 ; T ype 2 diabetes mellitu s with diabetic neuropa thy, unspecified E11. 40 ; rn long term care current use of insulin Z79.4 and Histor y of arterial bypass of lower extremity Z95.82 8 [facility] November, [place] [address] [address] Aug, Type 2 diabet es mellitus [place], [place] with diabe tic neuropathy, [address] unspecified E11. 40 ; Acquired deformi ty of right foot M21.961 ; P eripheral arterial disease I73.9 ; History of arter ial bypass of lower extremi ty Z95.828 ; correction curren t use of insulin Z79.4 an d History of Lisfranc amputat ion of foot Z89.439 UNKNOWN Jul, [facility] 11 Jun, 2018 Type 2 [place] [address] with diabeti c neuropathy, unspecified E11. [address] Apr, Edema of both legs R60.0 ; [place], [place] Acquired d eformity of right [address] foot M21.961 ; P eripheral arterial disease I73.9 ; History of arter ial bypass of lower extremi ty Z95.828 ; rn long term care curren t use of insulin Z79.4 an d Type 2 diabetes mellitu s with diabetic neuropa thy, unspecified E11. [address] Mar, [place] [address] [address] Mar, Edema of both legs R60.0 ; [place], [place] Acquired d eformity of right 438[address] foot M21.961 ; P eripheral arterial disease I73.9 ; History of arter ial bypass of lower extremi ty Z95.828 ; rn long term care curren t use of insulin Z79.4 an d Type 2 diabetes mellitu s with diabetic neuropa thy, unspecified E11. 40 [facility] Feb, Edema of both legs R60.0 ; [place] [address] Ulcer of lef t calf, limited to breakdown of skin L97.221 ; Acquired defor mity of right foot M21.9 61 ; Peripheral arter ial disease I73.9 ; History of arterial bypass of lower extremity Z95.828 ; Long t erm current use of insulin Z 79.4 and Type 2 diabetes mellitus with diabetic ne uropathy, unspecified E11. 40 [facility] 1 Feb, OFFICE [facility] [place] [address] [facility] Feb, Edema of both legs R60.0 ; [place] [address] Ulcer of rig ht calf, limited to [...] 40 [facility] Feb, [place] [address] [facility] [address] [facility] [address] Feb, [place] [address] [facility] [address] [facility] [address] Jan, [place] [address] [facility] [address] Jan, [place] [address] [facility] [address] Jan, [place] [address] [facility] [address] Jan, [place] [address] [facility] [address] Jan, [place] [address] [facility] Dec, [place] [address] [facility] [address] Dec, [place] [address] [facility] Dec, [place] [address] [facility] [address] [facility] Dec, [place] [address] [facility] Dec, [place] [address] [facility] Dec, [place] [address] [facility] November, [place] [address] [facility] November, [place] [address] [facility] November, [place] [address] [facility] November, [place] [address] [facility] November, [place] [address] [facility] November, [place] [address] UNKNOWN November, [facility] [address] November, [place]ICE [place] [address] [facility] November, [place], [place] [address] [facility] Oct, [place] [address] [facility] Oct, [place] [address] [facility] Oct, [place] [address] [facility] [address] 18 Oct, 2017 [place] [address] [facility] 16 Oct, 2017 [place] [address] [facility] [address] 16 Oct, 2017 [facility] [address] [facility] Oct, [place] [address] [facility] Oct, [place] [address] [facility] Oct, [place] [address] [facility] [address] Sep, [facility] [address] [facility] Sep, [place] [address] [facility] [address] Sep, [place] [address] [facility] [address] Sep, [place] [address] [facility] [address] Sep, [place] [address] [facility] [address] Sep, Critical ischemi a of lower [place] [address] extremity I 99.8 ; Local infection of the skin and subcutaneous tis lindsey, unspecified L08. 9 and Type 2 diabetes mellitu s with other skin complicatio ns E11.628 [facility] Sep, [place] [address] [facility] [address] [facility] Sep, [place] [address] [facility] [address] [facility] Sep, [place] [address] [facility] [address] [facility] [address] 14 Sep, [place] [address] [facility] Sep, [place] [address] [facility] Sep, [place] [address] [facility] Sep, [place] [address] [facility] Sep, [place] [address] [facility] [address] [facility] Aug, [place] [address] [facility] [address] Aug, [facility] [address] [facility] [address] Aug, [place] [address] [facility] Aug, [place] [address] [facility] Aug, [place] [address] [facility] Aug, [place] [address] ORTHOPEDIC OFFICE [facility] Aug, Pre-op exam Z01.818 [place] [address] [facility] Aug, [place] [address] [facility] Aug, [place] [address] [facility] Aug, [place] [address] IMMUNIZATIONS No Known Immunizations SOCIAL HISTORY Qualifiers [...] subcutaneously 22 24h Active units/mL daily [place] Active Ciclopirox Externally Twice 1 application 12h [...] For Report MR Lower Ext R w/o (20006) 2017-09-16 See Below For Report CR C-ARM [...] A1c 03/04/18 - 6.7, [facility] [facility], f/u - bilateral leg edema, Pt [...] work done 03/07/[address] [facility], Patient came in with tubigrip bilateral , wound clin est, wound clinest, Wound CTR-follow up, Wound CTR-follow up, Wound CTR-follow up, Peer to Peer w/ Dr. Espino, Wound CTR-follow up, Wound CTR-follow up, Miniature Train Driver Documentation, LAB, Wound CTR-follow up, Wound CTR-follow up, Wound CTR-follow up, Wound CTR-follow up, LAB, LAB, Wound CTR- follow up, Wound CTR-follow up, Wound CTR-follow up, Miniature Train Driver Documentation, [facility], Wound CTR-follow up, Wound CTR-follow up, Pull PICC Line, Wound CTR-follow up, Wound CTR-follow up, LAB, Still taking doxycycline 100mg? , Wound CTR-follow up, Wound CTR-follow up, Wound CTR-follow up, Miniature Train Driver Documentation, Wound CTR-follow up, Wound CTR-follow up, Call back, Miniature Train Driver Documentation, Miniature Train Driver Documentation, Miniature Train Driver Documentation, Wound CTR-follow up, WCC, Wound CTR-follow up, Wound CTR-follow up, labs, D/C planning, bailey smetatarsal amputation of right foot, LAB, LAB, Wound CTR-NEW Insurance Providers [facility] Health Member Patient Patient Patient Patient Patient Subscriber Subscriber Subscriber Group Insurance Plan Plan Plan Plan ID Relationship Address Phone Name Date of ID Name Date of No Type Insurance Insurance Insurance Coverage to Subscriber Address Phone Name Dates SELF PAY ANY STREET SELF PAY self [place] [id number] AFTER BLUE [place] AFTER AJ [facility] [id number] CROSS MEDICARE 3000 [place]FF[place] MEDICARE self [place] [id number] [facility] [id number] OTHER 29 [place] [phone] OTHER [place]REGORY [id number] GRANT 1^MAIN CONSTITUTION PARTY [facility] PAYOR [id number] S-BLUE [phone] S-BLUE [place] [id number] [address] [place] [address] [place]
--- OUTSIDE RECORDS SUMMARY | 2022-04-27 08:25 | XMS_ITS | Encounter Summary ---
:1945 Author Organization [facility] Address [address] [place] [address] Care Team Providers Name Role Phone Unknown, Provider Primary Care Provider Encounter Details Date Type Department Care Team Description 07/11/2014 Hospital Encounter [facility]- [place] Unknown, Provider, [facility] [address] [place] [address] [place] [address] (Work) [phone] Social History Tobacco Use Types Packs/Day Years Used Date Never Assessed Sex Assigned at Date Recorded Not on file documented as of this encounter Discharge Disposition Disposition Code Departure Means Destination Home or Self Shelter documented in this encounter Plan of Treatment Not on filedocumented as of this encounter Visit Diagnoses Not on filedocumented in this encounter Care Teams Icu Manager Relationship Specialty Start Date End Date Unknown, Provider, PCP - General 03/07/14 07/12/14 documented as of this encounter
--- OUTSIDE RECORDS SUMMARY | 2022-04-27 08:25 | XMS_ITS | Encounter Summary ---
:1945 Author Organization [facility] Address [address] [place] [address] Care Team Providers Name Role Phone Lovely Vicente MD Primary Care Provider Encounter Details Date Type Department Care Team Description 04/04/2021 Lab Requisition [facility] Outr Resulting Lab, Pathology & Laboratory Provider [facility] [address] [place] [address] Social History Tobacco Use Types Packs/Day Years [...] [facility] Shigella/Enteroinvasive Negative Negative [facility]. coli LABORATORY SERVICES HN LAB CAMPYLOBACTER PCR Negative Negative [facility] ER LABORATORY SERVICES Shiga Toxin PCR Negative Negative [facility] Specimen Feces - Specimen from rectum (specimen) Performing Organization Address City/State/ZIP Code Phon e Number [facility] [address] [place] [address] SERVICES documented in this encounter Visit Diagnoses Not on filedocumented in this encounter Care Teams Social Sciences Department Chair Relationship Specialty Start Date End Date Lovely Vicente MD PCP - General 07/13/14 documented as of this encounter
--- OUTSIDE RECORDS SUMMARY | 2022-04-27 08:25 | XMS_ITS | Encounter Summary ---
:1945 Author Organization [facility] Address [address] [place] [address] Care Team Providers Name Role Phone Unknown, Provider Primary Care Provider Encounter Details Date Type Department Care Team Description 03/05/2014 Results Only [facility] Eris Taylor MD Laboratory Services - [address] [place] [address] [place] [address] [phone] Social History Tobacco Use Types Packs/Day Years Used Date Never Assessed Sex Assigned at Date Recorded Not on file documented as of this encounter Plan of Treatment Not on filedocumented as of this encounter Procedures Procedure Name Priority Date/Time Associated Diagnosis Comme [facility] SURGICAL PATHOLOGY Routine 03/05/2014 10:34 Resul [...] ? DON HOANG ? Accession #: ? [id number] ? : ? 1945 (Age: 68) ??M [...] City/State/ZIP Code Phon e Number [facility] [address] [place] [address] SERVICES [facility] [address] [place] [address] documented in this encounter Visit Diagnoses Not on filedocumented in this encounter Care Teams Personal Loan Specialist Relationship Specialty Start Date End Date Unknown, Provider, PCP - General 03/07/14 07/12/14 documented as of this encounter
--- OUTSIDE RECORDS SUMMARY | 2022-04-27 08:25 | XMS_ITS | Encounter Summary ---
:1945 Author Organization [facility] Address [address] [place] [address] Care Team Providers Name Role Phone Unavailable Primary Care Provider Unavailable Encounter Details Date Type Department Care Team Description 03/05/2014 Hospital Encounter [facility]- [place] Unknown, Provider, [facility] 0 [facility] [phone] [place] [address] (Work) [phone] Social History Tobacco Use Types Packs/Day Years [...]
--- OUTSIDE RECORDS SUMMARY | 2022-04-27 08:25 | XMS_ITS | Encounter Summary ---
:1945 Author Organization [facility] Address [address] [place] [address] Care Team Providers Name Role Phone Lovely Vicente MD Primary Care Provider Encounter Details Date Type Department Care Team Description 02/20/2022 Lab Requisition [facility] Outr Resulting Lab, Pathology & Laboratory Provider [facility] [address] [place] [address] Social History Tobacco Use Types Packs/Day Years [...] Sig nature PSA 2.7 <=6.5 ng/mL [facility] Specimen Blood - Venous blood (substance) Narrative [facility] - 02/20/2022 18:17 EDT NOTE: Serum PSA concentration should not be in terpreted as absolute evidence for the presence or absence of malignant disease. Assayed on Siemens ADVIA Centaur XPT usi ng chemiluminescent technology.??Values obtained by using different assay methods cannot be used interchangeably. Performing Organization Address City/State/ZIP Code Phon e Number [facility] [address] [place] [address] SERVICES documented in this encounter Visit Diagnoses Not on filedocumented in this encounter Care Teams Electrician Office Relationship Specialty Start Date End Date Lovely Vicente MD PCP - General 07/13/14 documented as of this encounter
--- OUTSIDE RECORDS SUMMARY | 2022-04-29 08:08 | XMS_ITS | Encounter Summary ---
:1945 [place] [address] Care Team Providers Name Role Phone Lovely Vicente MD Primary Care Provider Encounter Details Date Type Department Care Team Description 12/25/2021 Office Visit Cardiology at [facility] Liz Poole, Chronic systolic heart [facility] [place] [address] Cardiology Dept [phone] [place], [place] [address] Social History Tobacco Use Types [...] As per DC Summary - Admitted to [facility] on 12/08/21, transferred from [facility], respiratory distress with hypoxia 86% on RA. [...] mg PO daily in place of Lasix. Meddybemps is new for him and he will [...] Recommendations above ? TTE from [facility] 12/08/21 ?? 07/28/2019 Echocardiogram: SUMMARY: 1. The [...] regurgitation present. 07/07/2019 - 07/21/2019 [employer] Payable Processor The patient had a minimum heart rate [...] hyperkalemia 4.9 today 6. Post-op atrial fibrillation [id number] (CHF, HTN, DM, vascular disease, thromboembolism) [...] Dolan MD [facility] [address] [place], [place] [address] (Wo rk) 05/28/2022 Laboratory Appointment Lab 05/28/2022 Office Visit Cardiology Zulma Dolan MD [facility] [place] [address] Liz Poole PA [facility] [place] [address] 06/10/2022 Office Visit Dermatology Laura Scherer MD [facility] ER [address] [place], [place] [address] (Mikayla alcaraz) documented as of this encounter Results (ABNORMAL) pro-Brain Natriuretic Peptide (12/25/2021 7:46 AM EDT) athologist Signature ProBNP 1,380 (H) <=124 [facility] pg/mL [facility] Specimen Anatomical Collection Method Collection Time Receive d Time (Source) Location / / Volume Laterality Blood 12/25/2021 7:46 AM 8:01 EDT AM EDT Resulting Agency Comment Spec In Lab Zulma Plunkett MD CHEMISTRY ORDERABLES Performing Organization Address City/State/[place] [address] (ABNORMAL) Basic Metabolic Panel (non-fasting) (12/25/2021 7:46 AM EDT) athologist Signature Glucose Lvl 272 (H) 65 - 199 [facility] mg/dL [facility] Comment: Diabetes: [...] Chloride 95 (L) 98 - 107 mmol/L [facility] CO2 28 22 - 31 mmol/L [facility] Anion Gap 11 5 - 15 mmol/L [facility] Calcium 9.4 8.5 - 10.5 mg/dL [facility] Estimated GFR 36 (L) >=60 mL/min/1.73 m?? [facility] [...] City/State/[place] [address] documented in this encounter Visit Diagnoses Diagnosis Chronic systolic heart failure documented in this encounter Care Teams Social Service Coordinator Relationship Specialty Start Date End Date Lovely Vicente MD PCP - General 04/16/[address] [place] [address] documented as of this encounter
--- OUTSIDE RECORDS SUMMARY | 2022-04-29 08:08 | XMS_ITS | Encounter Summary ---
:1945 Author Organization [facility] [place] [address] Care Team Providers Name Role Phone Lovely Vicente MD Primary Care Provider Reason for Visit Reason Onset Date Comments Advice Only 01/28/2022 Encounter Details Date Type Department Care Team Description 01/28/2022 Telephone Cardiology at [facility] Chitra Angela, [place] [address] Social History Tobacco Use Types Packs/Day [...] assists patient with medications. Number for lab aide scheduling given and she will call them to verify this information Meds reviewed. As per our form from lab aide Eliquis hold for 48 hours prior. [...] Zulma Dolan MD [facility] [address] [place], [place] [address] (Wo rk) 05/28/2022 Laboratory Appointment Lab 05/28/2022 Office Visit Cardiology Zulma Dolan MD [facility] [place] [address] Liz Poole PA [facility] [place] [address] 06/10/2022 Office Visit Dermatology Laura Scherer MD [facility] [address] [place], [place] [address] (Wo rk) documented as of this encounter Visit Diagnoses Not on filedocumented in this encounter Care Teams Land Reclamation Specialist Relationship Specialty Start Date End Date Lovely Vicente MD PCP - General 04/16/[address] [place] [address] documented as of this encounter
--- OUTSIDE RECORDS SUMMARY | 2022-04-29 08:08 | XMS_ITS | Encounter Summary ---
:1945 Author Organization [facility] [place] [address] Care Team Providers Name Role Phone Lovely Vicente MD Primary Care Provider Reason for Visit Reason Onset Date Comments Medication Refill 03/11/2022 Encounter Details Date Type Department Care Team Description 03/06/2022 Refill Cardiology at [facility] Liz Poole PA Medication Refill [facility] Jorge mcnamara [facility] [place] [address] Cardiology Dept [phone] [place], [place] [address] (Wo rk) Social History Tobacco [...] [facility] [place] [address] [place], [place] [address] (Wo rk) 05/28/2022 Laboratory Appointment Lab 05/28/2022 Office Visit Cardiology Zulma Dolan MD [facility] [place] [address] Liz Poole PA [facility] [place] [address] 06/10/2022 Office Visit Dermatology Laura Scherer MD [facility] [address] [place], [place] [address] (Wo rk) documented as of this encounter Visit Diagnoses Not on filedocumented in this encounter Care Teams M1 Armor Crewman Relationship Specialty Start Date End Date Lovely Vicente MD PCP - General 04/16/[address] [place] [address] documented as of this encounter
--- OUTSIDE RECORDS SUMMARY | 2022-04-29 08:08 | XMS_ITS | Encounter Summary ---
:1945 Author Organization [facility] [place] [address] Care Team Providers Name Role Phone Lovely Vicente MD Primary Care Provider Reason for Visit Auth/Cert Specialty Diagnoses / Procedures Referred By Contact Refer red To Contact Diagnoses ASCVD (arteriosclerotic cardiovascular disease) [I25.10] Vitaliy Nobles MD [facility] Procedures PRO PERC TRLUML CORONARY STENT W/ANGIO ONE ART/BRANCH CARDIAC CATHETERIZATION STENT PLACEMENT-SINGLE MAJOR CORONARY ARTERY OR BRANCH [facility] [place] [address] Referral ID Status Reason Start Date Expiration Date Visits Requ ested Visits Authorized [id number] 1 1 Encounter Details Date Type Department Care Team Description 01/30/2022 Laboratory Lab 3L Katalina ASCVD (arterios clerotic Appointment [facility] cardiovas cular disease) [place] [address] Social History Tobacco Use Types Packs/Day Years [...] Cardiology Zulma Dolan MD [facility] [place], [place] [address] (Wo rk) 05/28/2022 Laboratory Appointment Lab 05/28/2022 Office Visit Cardiology Zulma Dolan MD [facility] [place] [address] Liz Poole PA [facility] [place] [address] 06/10/2022 Office Visit Dermatology Laura Scherer MD [facility] DR TEJA GR-DERMAT [place], [place] [address] (Wo rk) documented as [...] Abs (ANC) 5.31 1.70 - [facility] 6.10 [facility] x10(3)/[facility] LABORATORY Lymphocytes % 12.0 % [facility] LABORATORY Lymphocytes Abs 0.8 (L) 0.9 - 3.2 [facility] x10(3)/[facility] LABORATORY Monocytes % 8.1 % [facility] LABORATORY Monocyte Abs 0.6 0.3 - 0.9 [facility] x10(3)/[facility] LABORATORY Eosinophils % 0.4 % [facility] LABORATORY Eosinophils Abs 0.0 0.0 - 0.4 [facility] x10(3)/[facility] LABORATORY Basophils % 0.6 % [facility] LABORATORY Basophils Abs 0.0 0.0 - 0.1 [facility] x10(3)/[facility] LABORATORY Immature Gran % 1.00 % NORTH [...] Organization Address City/State/[place] [address] (ABNORMAL) Hemogram (01/30/2022 7:19 AM EDT) Analysis Performed At Patho logist Time Signature WBC 6.8 4.0 - 9.5 [facility] x10(3)/[facility] LABORATORY RBC 4.32 (L) 4.58 - [facility] 5.54 [facility] x10(6)/[facility] LABORATORY Hemoglobin 13.0 (L) 13.7 - [facility] 16.5 g/dL [facility] LABORATORY Hematocrit 39.8 (L) 40.5 - [facility] 48.5 % [facility] LABORATORY MCV 92.1 82.9 - [facility] 93.1 fL [facility] LABORATORY MCH 30.1 27.5 - [facility] 32.1 pg [facility] LABORATORY MCHC 32.7 32.0 - [facility] 35.7 g/dL [facility] LABORATORY Platelets 172 145 - 357 [facility] x10(3)/[facility] LABORATORY RDWSD 54.5 (H) 36.0 - [facility] 45.0 [facility] LABORATORY RDWCV 16.2 (H) 11.4 - [facility] 13.8 % [facility] LABORATORY MPV 9.0 7.6 - 12.9 [facility] LABORATORY nRBC % Auto 0.0 % [facility] LABORATORY nRBC Abs Auto 0.000 0.000 - [facility] 0.000 [facility] x10(3)/[facility] LABORATORY Specimen Anatomical Collection Method Collection Time Receive d Time (Source) Location / / Volume Laterality Blood 01/30/2022 7:19 AM 7:21 EDT AM EDT Resulting Agency Comment Spec In Lab Zulma BROWN HEMATOLOGY ORDERABLES Performing Organization Address City/State/[place] [address] (ABNORMAL) Basic Metabolic Panel (non-fasting) (01/30/2022 7:19 AM EDT) P athologist Signature Glucose Lvl 237 (H) 65 - 199 [facility] mg/dL [facility] LABORATORY Comment: Diabetes: >=200 mg/dL plus symp toms BUN 34 (H) 10 - 20 mg/dL [facility] LABORATORY Creatinine 1.45 0.80 - [...] 15 mmol/L [facility] LABORATORY Calcium 9.5 8.5 - [...] City/State/ZIP Code Phon e Number [place] [phone] HOSPITAL LAB[address]ORY [address] documented in this encounter Visit Diagnoses Diagnosis ASCVD (arteriosclerotic cardiovascular d isease) Unspecified cardiovascular disease documented in this encounter Care Teams Segregator Relationship Specialty Start Date End Date Lovely Vicente MD PCP - General 04/16/[address] [place] [address] documented as of this encounter
--- OUTSIDE RECORDS SUMMARY | 2022-04-29 08:08 | XMS_ITS | Encounter Summary ---
:1945 [address] [facility] [place] [address] Care Team Providers Name Role Phone Lovely Vicente MD Primary Care Provider Encounter Details Date Type Department Care Team Description 02/24/2022 Orders Only Cardiology at [facility] Liz Poole, Chronic systolic heart [facility] [place] [address] Cardiology Dept [place], [place] [address] Social History Tobacco Use Types [...] MD [facility] er [address] [place], [place] [address] (Wo rk) 05/28/2022 Laboratory Appointment Lab 05/28/2022 Office Visit Cardiology Zulma Dolan MD [facility] [place] [address] Liz Poole PA [facility] [place] [address] 06/10/2022 Office Visit Dermatology Laura Scherer MD [facility] ER DR TEJA GR-DERMAT [place], [place] 0[address] (Wo rk) documented as of this encounter Visit Diagnoses Diagnosis Chronic systolic heart failure documented in this encounter Care Teams Foam Dispenser Relationship Specialty Start Date End Date Lovely Vicente MD PCP - General 04/16/[address] [place] [address] documented as of this encounter
--- OUTSIDE RECORDS SUMMARY | 2022-04-29 08:08 | XMS_ITS | Encounter Summary ---
:1945 Author Organization [facility] [place] [address] Care Team Providers Name Role Phone Lovely Vicente MD Primary Care Provider Encounter Details Date Type Department Care Team Description 01/28/2022 Orders Only Commercial Horticulture Instructor Zulma Finch ASCVD (art eriosclerotic [facility] cardiovascular disease) [facility] [place] [address] [place], [place] [phone] (Work) [phone] Social History Tobacco Use Types Packs/Day Years [...] Dolan MD [facility] Dr [place] [address] (Wo rk) 05/28/2022 Laboratory Appointment Lab 05/28/2022 Office Visit Cardiology Zulma Dolan MD [facility] [place] [address] Liz Poole PA [facility] [place] [address] 06/10/2022 Office Visit Dermatology Laura Scherer MD [facility] DR [address]-DERMAT [place], [place] 0[address] (Wo rk) documented as of this encounter Results (ABNORMAL) Basic Metabolic Panel (non-fasting) (01/30/2022 7:19 AM EDT) athologist Signature Glucose Lvl 237 (H) 65 - 199 [facility] mg/dL [facility] LABORATORY Comment: Diabetes: >=200 mg/dL plus symp toms BUN 34 (H) 10 - 20 mg/dL [facility] LABORATORY Creatinine 1.45 0.80 - 1.50 mg/dL [facility] [...] Address City/State/[place] [address] documented in this encounter Visit Diagnoses Diagnosis ASCVD (arteriosclerotic cardiovascular d isease) Unspecified cardiovascular disease documented in this encounter Care Teams Elementary Ell Teacher Relationship Specialty Start Date End Date Lovely Vicente MD PCP - General 04/16/[address] [place] [address] documented as of this encounter
--- OUTSIDE RECORDS SUMMARY | 2022-04-29 08:08 | XMS_ITS | Encounter Summary ---
:1945 [place] [address] Care Team Providers Name Role Phone Lovely Vicente MD Primary Care Provider Reason for Visit Reason Onset Date Comments Follow-up 03/06/2022 Dave Bueno Encounter Details Date Type Department Care Team Description 03/06/2022 Telephone Card[facility] [place] [facility] Martha Comer, Follow-up ([facility] Start) [place] [address] Social History Tobacco Use Types Packs/Day [...] pt had gotten his labs done at [facility] yesterday. Results received, scanned and entered into [...] MD [facility] [address] [place], [place] [address] (Wo rk) 05/28/2022 Laboratory Appointment Lab 05/28/2022 Office Visit Cardiology Zulma Dolan MD [facility] [place] [address] Liz Poole PA [facility] [place] [address] 06/10/2022 Office Visit Dermatology Laura Scherer MD [facility] DR TEJA GR-DERMAT [place], [place] [address] (Wo rk) documented [...] filedocumented in this encounter Care Teams Software Configuration Specialist Relationship Specialty Start Date End Date Lovely iVcente MD PCP - General 04/16/[address] [place] [address] documented as of this encounter
--- OUTSIDE RECORDS SUMMARY | 2022-04-29 08:08 | XMS_ITS | Encounter Summary ---
:1945 Author Organization [facility] [place] [address] Care Team Providers Name Role Phone Lovely Vicente MD Primary Care Provider Encounter Details Date Type Department Care Team Description 12/25/2021 Laboratory Appointment Lab 3L [facility] [place] [phone] Social History Tobacco Use Types Packs/Day Years [...] Dolan MD [facility] [place] [address] (Wo rk) 05/28/2022 Laboratory Appointment Lab 05/28/2022 Office Visit Cardiology Zulma Dolan MD [facility] [place] [address] Liz Poole PA [facility] [place] [address] 06/10/2022 Office Visit Dermatology Laura Scherer MD [facility] DR TEJA GR[address] [address] (Wo rk) documented as of this encounter [...] 7:46 AM EDT) [facility] gist Method Time Signature Neutrophils % 82.6 % [facility] LABORATORY Neutr Abs (ANC) 9.37 (H) 1.70 - [facility] 6.10 [facility] x10(3)/[facility] LABORATORY Lymphocytes % 7.1 % [facility] LABORATORY Lymphocytes Abs 0.8 (L) 0.9 - 3.2 [facility] x10(3)/[facility] LABORATORY Monocytes % 8.8 % [facility] LABORATORY Monocyte Abs 1.0 (H) 0.3 - 0.9 [facility] x10(3)/[facility] LABORATORY Eosinophils % 0.4 % [facility] LABORATORY Eosinophils Abs 0.0 0.0 - 0.4 [facility] x10(3)/[facility] LABORATORY Basophils % 0.4 % [facility] LABORATORY Basophils Abs 0.0 0.0 - 0.1 [facility] x10(3)/[facility] LABORATORY Immature Gran % [...] City/State/ZIP Code Phon e Number [place] [phone] HOSPITAL LABORATORY Drive (ABNORMAL) Hemogram (12/25/2021 7:46 AM EDT) Analysis Performed At Patho logist Time Signature WBC 11.4 (H) 4.0 - 9.5 [facility] x10(3)/[place] LABORATORY RBC 4.23 (L) 4.58 - [facility] 5.54 [facility] x10(6)/[facility] LABORATORY Hemoglobin 12.3 (L) 13.7 - [facility] 16.5 g/dL [facility] Hematocrit 37.7 (L) 40.5 - [facility] 48.5 % [facility] LABORATORY MCV 89.1 82.9 - [facility] 93.1 [facility] LABORATORY MCH 29.1 27.5 - [facility] 32.1 pg [facility] LABORATORY MCHC 32.6 32.0 - [facility] 35.7 g/dL [facility] LABORATORY Platelets 215 145 - 357 [facility] x10(3)/[place] LABORATORY RDWSD 49.8 (H) 36.0 - [facility] 45.0 [facility] RDWCV 15.2 (H) 11.4 - [facility] 13.8 % [facility] LABORATORY MPV 9.2 7.6 - 12.9 [facility] LABORATORY nRBC % Auto 0.0 % [facility] LABORATORY nRBC Abs Auto 0.000 0.000 - [facility] 0.000 [facility] x10(3)/[facility] LABORATORY Specimen Anatomical Collection Method Collection Time Receive d Time (Source) Location / / Volume Laterality Blood 12/25/2021 7:46 AM 8:01 EDT AM EDT Resulting Agency Comment Spec In Lab Liz BROWN HEMATOLOGY ORDERABLES Performing Organization Address City/State/[place] [address] (ABNORMAL) Basic Metabolic Panel (non-fasting) (12/25/2021 7:46 AM EDT) P athologist Signature Glucose Lvl 272 (H) 65 - 199 [facility] mg/dL [facility] LABORATORY Comment: Diabetes: >=200 [...] Address City/[facility]/[place] [address] (ABNORMAL) pro-Brain Natriuretic Peptide (12/25/2021 7:46 AM EDT) P athologist Signature ProBNP 1,380 (H) <=124 [facility] pg/mL [facility] LABORATORY Specimen Anatomical Collection Method Collection Time Receive d Time (Source) Location / / Volume Laterality Blood 12/25/2021 7:46 AM 2 8:01 EDT AM EDT Resulting Agency Comment Spec In Lab Zulma Plunkett MD CHEMISTRY ORDERABLES Performing Organization Address City/[facility]/ZIP [facility] [place] [address] documented in this encounter Visit Diagnoses Diagnosis Chronic systolic heart failure documented in this encounter Care Teams Watch Electrician Relationship Specialty Start Date End Date Lovely Vicente MD PCP - General 04/16/[address] [place] [address] documented as of this encounter
--- OUTSIDE RECORDS SUMMARY | 2022-04-29 08:08 | XMS_ITS | Encounter Summary ---
:1945 Author Organization [facility] [place] [address] Care Team Providers Name Role Phone Lovely Vicente MD Primary Care Provider Reason for Referral Diagnostic Test (Routine) - New Request Specialty Diagnoses / Procedures Referred By Contact Refer red To Contact Cardiology Diagnoses Chronic systolic heart failure Liz Carrera PA [facility] Non-Inv Card Lab Procedures Echocardiogram Transthoracic [facility] [place] [address] [place] [address] Fax: Referral ID Status Reason Start Expiration Visits Visits Date Date Requested Authorized [id number] New Request Specialty 02/19/2022 02/19/2023 1 1 Service Requested Encounter Details Date Type Department Care Team Description 02/19/2022 Office Visit Cardiology [place] [facility] Liz Carrera, Chronic systolic heart [facility] [place] [address] Cardiology Dept [phone] [place], [place] [address] Social History Tobacco Use Types [...] per DC Summary - Admitted to [facility] 12[facility]08[facility], transferred from [facility], respiratory distress with hypoxia [...] mg PO daily in place of Lasix. [place] is new for him and he will [...] his PCP. He started [facility] in [facility]. Monitored vitals/trends at home: Weight 191-194 [...] Antiplatelet (DAPT) Recommendations above ? TTE from [facility] 12/08/21 ?? 07/28/2019 Echocardiogram: SUMMARY: [...] regurgitation present. 07/07/2019 - 07/21/2019 Zio Patch Braided Band Assembler The patient had a minimum heart rate [...] 12.5 mg daily 6. Post-op atrial fibrillation [id number] (CHF, HTN, DM, vascular disease, thromboembolism) Eliquis 7. PAD 08/06/2017: Right 1st, 2nd, 3rd toe amputation 08/11/2017: Left??femoral arterial access, RLE??angiogram, Balloon angioplasty of R PT 10/25/2017: right popliteal-pedal bypass at [facility] 8. Hypothyrodism S/p thyroidectomy for [...] Zulma Dolan MD [facility] [place], [place] [address] (Wo rk) 05/28/2022 Laboratory Appointment Lab 05/28/2022 Office Visit Cardiology Zulma Dolan MD [facility] [place] [address] Liz Carrera PA [facility] [place] [address] 06/10/2022 Office Visit Dermatology Laura Scherer MD [facility] TEJA [facility]MAT [facility] [place] [address] (Wo rk) Scheduled Orders Name Type Priority Associated Order Schedule Diagnoses Echocardiogram Echocardiography Routine Chronic systolic Expec vlad: Transthoracic heart failure 05/22/2022 (Approximate), Expires: 11/21/2022 documented as of this encounter Results (ABNORMAL) Basic Metabolic Panel (non-fasting) (02/19/2022 8:06 AM EDT) P athologist Signature Glucose Lvl 139 65 - 199 [facility] mg/dL [facility] [...] City/State/ZIP Code Phon e Number [place] [phone] HOSPITAL LABORATORY Drive (ABNORMAL) pro-Brain Natriuretic Peptide (02/19/2022 8:06 AM EDT) P athologist Signature ProBNP 984 (H) <=449 pg/mL [facility] LABORATORY Specimen Anatomical Collection Method Collection Time Receive d Time (Source) Location / / Volume Laterality Blood 02/19/2022 8:06 AM 8:09 EDT AM EDT Resulting Agency Comment Spec In Lab Zulma Plunkett MD CHEMISTRY ORDERABLES Performing Organization Address City/[facility]/[place] [address] documented in this encounter Visit Diagnoses Diagnosis Chronic systolic heart failure documented in this encounter Care Teams Human Anatomy Teacher Relationship Specialty Start Date End Date Lovely Vicente MD PCP - General 04/16/[address] [place] [address] documented as of this encounter
--- OUTSIDE RECORDS SUMMARY | 2022-04-29 08:08 | XMS_ITS | Encounter Summary ---
:1945 Author Organization [facility] [place] [address] Care Team Providers Name Role Phone Lovely Vicente MD Primary Care Provider Encounter Details Date Type Department Care Team Description 02/19/2022 Laboratory Appointment Lab 3L [facility] [place] [phone] Social History Tobacco Use Types Packs/Day Years [...] MD [facility] er [place], [place] [address] (Wo rk) 05/28/2022 Laboratory Appointment Lab 05/28/2022 Office Visit Cardiology Zulma Dolan MD [facility] [place] [address] Liz Poole PA [facility] [place] [address] 06/10/2022 Office Visit Dermatology Laura Scherer MD [facility] DR [address] [place] [address] (Wo rk) documented as of this encounter [...] Automated (02/19/2022 8:06 AM EDT) [facility] gist Method Time Signature Neutrophils % 76.0 % [facility] LABORATORY Neutr Abs (ANC) 5.49 1.70 - [facility] 6.10 [facility] x10(3)/[facility] LABORATORY Lymphocytes % 10.8 % [facility] LABORATORY Lymphocytes Abs 0.8 (L) 0.9 - 3.2 [facility] x10(3)/[facility] LABORATORY Monocytes % 10.2 % [facility] LABORATORY Monocyte Abs 0.7 0.3 - 0.9 [facility] x10(3)/[facility] LABORATORY Eosinophils % 1.2 % [facility] LABORATORY Eosinophils Abs 0.1 0.0 - 0.4 [facility] x10(3)/[facility] LABORATORY Basophils % 0.8 % [facility] LABORATORY Basophils Abs 0.1 0.0 - 0.1 [facility] x10(3)/[facility] LABORATORY Immature Gran % 1.00 % [facility] [...] Address City/State/ZIP [place] [address] (ABNORMAL) Hemogram (02/19/2022 8:06 AM EDT) Analysis Performed At Patho logist Time Signature WBC 7.2 4.0 - 9.5 [facility] x10(3)/[facility] LABORATORY RBC 4.41 (L) 4.58 - [facility] 5.54 [facility] x10(6)/[facility] LABORATORY Hemoglobin 13.2 (L) 13.7 - [facility] 16.[facility] g/dL [facility] LABORATORY Hematocrit 40.9 40.5 - [facility] 48.5 % [facility] LABORATORY MCV 92.7 82.9 - [facility] 93.1 [facility] LABORATORY MCH 29.9 27.5 - [facility] 32.1 pg [facility] LABORATORY MCHC 32.3 32.0 - [facility] 35.7 g/dL [facility] LABORATORY Platelets 191 145 - 357 [facility] x10(3)/[facility] LABORATORY RDWSD 53.6 (H) 36.0 - [facility] 45.0 [facility] LABORATORY RDWCV 15.6 (H) 11.4 - [facility] 13.8 % [facility] LABORATORY MPV 8.7 7.6 - 12.9 [facility] LABORATORY nRBC % Auto 0.0 % [facility] LABORATORY nRBC Abs Auto 0.000 0.000 - [facility] 0.000 [facility] x10(3)/[facility] LABORATORY Specimen Anatomical Collection Method Collection Time Receive d Time (Source) Location / / Volume Laterality Blood 02/19/2022 8:06 AM 2 8:09 EDT AM EDT Resulting Agency Comment Spec In Lab Liz BROWN HEMATOLOGY ORDERABLES Performing Organization Address City/[facility]/ZIP [place] [address] (ABNORMAL) pro-Brain Natriuretic Peptide [...] Organization Address City/State/ZIP [place] [address] (ABNORMAL) Basic Metabolic Panel (non-fasting) (02/19/2022 8:06 AM EDT) P athologist Signature Glucose Lvl 139 65 - 199 [facility] mg/dL [facility] LABORATORY Comment: Diabetes: >=200 mg/dL plus symp toms BUN 31 (H) 10 - 20 mg/dL [facility] LABORATORY Creatinine 1.53 (H) 0.80 - [...] mmol/L [facility] LABORATORY Calcium 9.7 8.5 - 10.5 [...] Address City/State/ZIP [place] [address] documented in this encounter Visit Diagnoses Diagnosis Chronic systolic heart failure documented in this encounter Care Teams Principal Consultant Relationship Specialty Start Date End Date Lovely Vicente MD PCP - General 04/16/[address] [place] [address] documented as of this encounter
--- OUTSIDE RECORDS SUMMARY | 2022-04-29 08:08 | XMS_ITS | Encounter Summary ---
:1945 Author Organization [facility] [address] Care Team Providers Name Role Phone Lovely Vicente MD Primary Care Provider Encounter Details Date Type Department Care Team Description 02/24/2022 Notes Only [place] [address] Social History Tobacco Use Types Packs/Day [...] the Medication Assistance Program. The [facility] office will follow up with the patient in 5 business days to see if the patient has received the application and if they have any questions. documented in this encounter Plan of Treatment Upcoming Encounters Date Type Specialty Care Team Description 05/28/2022 Appointment Cardiology Zulma Dolan MD [facility] [address] [place], [place] [address] (Wo rk) 05/28/2022 Laboratory Appointment Lab 05/28/2022 Office Visit Cardiology Zulma Dolan MD [facility] [place] [address] Liz Poole PA [facility] [place] [address] 06/10/2022 Office Visit Dermatology Laura Scherer MD [facility] ER DR [address] [place], [place] [address] (Wo rk) documented as of this encounter Visit Diagnoses Not on filedocumented in this encounter Care Teams Auctioneer Tobacco Relationship Specialty Start Date End Date Lovely Vicente MD PCP - General 04/16/[address] [place] [address] documented as of this encounter
--- OUTSIDE RECORDS SUMMARY | 2022-04-29 08:08 | XMS_ITS | Encounter Summary ---
:1945 [place] [address] Care Team Providers Name Role Phone Lovely Vicente MD Primary Care Provider Encounter Details Date Type Department Care Team Description 12/30/2021 Notes Only [facility], [facility] [place] [address] Social History Tobacco Use Types Packs/Day [...] Failure team. DX: HFrEF. Referral placed to [facility] documented in this encounter Plan of Treatment Upcoming Encounters Date Type Specialty Care Team Description 05/28/2022 Appointment Cardiology Zulma Dolan MD [facility] [address] [place], [place] [address] (Wo rk) 05/28/2022 Laboratory Appointment Lab 05/28/2022 Office Visit Cardiology Zulma Dolan MD [facility] [place] [address] Liz Poole PA [facility] [place] [address] 06/10/2022 Office Visit Dermatology Laura Scherer MD [facility] ER DR [address] [place], [place] [address] (Wo rk) documented as of this encounter Visit Diagnoses Not on filedocumented in this encounter Care Teams Air Sampler Relationship Specialty Start Date End Date Lovely Vicente MD PCP - General 04/16/[address] [place] [address] documented as of this encounter
--- OUTSIDE RECORDS SUMMARY | 2022-04-29 08:08 | XMS_ITS | Encounter Summary ---
:1945 Author Organization [facility] [place] [address] Care Team Providers Name Role Phone Lovely Vicente MD Primary Care Provider Reason for Visit Reason Comments Medication Refill Encounter Details Date Type Department Care Team Description 04/07/2022 Refill Cardiology at [facility] Janneth Padilla PA Medication Refill [facility] [place] [address] CARDIOLOGY DEPT. [phone] [place], [place] [address] (Wo rk) Social History Tobacco [...] Dolan MD [facility] er [address] [place], [place] [address] (Wo rk) 05/28/2022 Laboratory Appointment Lab 05/28/2022 Office Visit Cardiology Zulma Dolan [place] [address] Liz Poole PA [facility] [place] [address] 06/10/2022 Office Visit Dermatology Laura Scherer MD [facility] [address] [place], [place] [address] (Wo rk) documented as of this encounter Visit Diagnoses Not on filedocumented in this encounter Care Teams Escalator Service Mechanic Relationship Specialty Start Date End Date Lovely Vicente MD PCP - General 04/16/[address] [place] [address] [address] [place] [address] documented as of this encounter
--- OUTSIDE RECORDS SUMMARY | 2022-04-29 08:08 | XMS_ITS | Clinical Summary ---
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; [...] MD [facility] er [address] [place] [address] (Wo rk) 05/28/2022 Laboratory Appointment Lab 05/28/2022 Office Visit Cardiology Zulma Dolan MD [facility] [place] [address] Liz Poole PA [facility] [place] [address] 06/10/2022 Office Visit Dermatology Laura Scherer MD [facility] ER DR [address] [place], [place] [address] (Wo rk) Health Maintenance Due Date Last Done Comments Covid-19 Vaccine (#1) 1950 Pneumoccocal Vaccine: 65+ (1 - PCV) 1952 Hepatitis C Screening 1964 Tdap adult 1965 Tetanus vaccine 1965 Zoster vaccine (1 of 2) 1996 Colonoscopy 01/16/2019 01/16/2014, 01/16/2014 Influenza (Flu) vaccine (1 of - 03/26/2022 03/29/2013, Influenza standard series) Medical Devices Implanted Type Area Drafter Heating And Ventilating Device Shelf Model / Identifier Expiration Serial / Date Lot Cable,Cut,Edg,Blnt,Ss,3tpr ([id number]) - [id number] IMPLANTS Midline: [employer] 04/01/2022 [id number] / Implanted: Qty: 4 on 07/07/2017 by Yuan Retana MD at [facility] [employer]CHN[employer] - / [id number] Procedures Procedure Name Priority Date/Time Associated Diagnosis [...] Time Signature WBC 7.2 4.0 - 9.5 [facility] x10(3)/[facility] LABORATORY RBC 4.41 (L) 4.58 - [facility] 5.54 [facility] x10(6)/[facility] LABORATORY Hemoglobin 13.2 (L) 13.7 - [place] [facility] 16.5 g/dL [facility] LABORATORY Hematocrit 40.9 40.5 - [place] [facility] 48.5 % [facility] LABORATORY MCV 92.7 82.9 - [facility] 93.1 [facility] LABORATORY MCH 29.9 27.5 - [place] 32.1 pg [facility] LABORATORY MCHC 32.3 32.0 - [place] 35.7 g/dL [facility] LABORATORY Platelets 191 145 - 357 [facility] x10(3)/[facility] LABORATORY RDWSD 53.6 (H) 36.0 - [place] [facility] 45.0 [facility] LABORATORY RDWCV 15.6 (H) 11.4 - [place] [facility] 13.8 % [facility] LABORATORY MPV 8.7 7.6 - 12.9 [facility] LABORATORY nRBC % Auto 0.0 % [facility] LABORATORY nRBC Abs Auto 0.000 0.000 - [facility] 0.000 [facility] x10(3)/[facility] LABORATORY Specimen Anatomical Collection Method Collection Time Receive d Time (Source) Location / / Volume Laterality Blood 02/19/2022 8:06 AM 8:09 EDT AM EDT Resulting Agency Comment Spec In Lab Liz BROWN HEMATOLOGY ORDERABLES Performing Organization Address City/State/[place] [address] (ABNORMAL) Differential, Automated (02/19/2022 8:06 AM EDT)Only the most recent of3 resultswithin the time period is included. [facility] Method Time Signature Neutrophils % 76.0 % [facility] LABORATORY Neutr Abs (ANC) 5.49 1.70 - [facility] 6.10 [facility] x10(3)/[facility] LABORATORY Lymphocytes % 10.8 % [facility] LABORATORY Lymphocytes Abs 0.8 (L) 0.9 - 3.2 [facility] x10(3)/[facility] LABORATORY Monocytes % 10.2 % [facility] LABORATORY Monocyte Abs 0.7 0.3 - 0.9 [facility] x10(3)/[facility] LABORATORY Eosinophils % 1.2 % [facility] LABORATORY Eosinophils Abs 0.1 0.0 - 0.4 [facility] x10(3)/[facility] LABORATORY Basophils % 0.8 % [facility] LABORATORY Basophils Abs 0.1 0.0 - 0.1 [facility] x10(3)/[facility] LABORATORY Immature Gran % 1.00 [...] Liz BROWN HEMATOLOGY ORDERABLES Performing Organization Address City/[facility]/[place] [address] (ABNORMAL) pro-Brain Natriuretic Peptide (02/19/2022 8:06 AM EDT) P athologist Signature ProBNP 984 (H) <=449 pg/mL [facility] LABORATORY Specimen Anatomical Collection Method Collection Time Receive d Time (Source) Location / / Volume Laterality Blood 02/19/2022 8:06 AM 2 8:09 EDT AM EDT Resulting Agency Comment Spec In Lab Zulma Plunkett MD CHEMISTRY ORDERABLES Performing Organization Address City/[facility]/[place]IP [place] [address] POCT Glucose (01/30/2022 1:41 PM EDT)Only the most recent of4 resultswithin the time period is included. P athologist Signature POC Glucose 148 65 - 199 [facility] mg/dL [facility] LABORATORY Comment: Supplemental ranges: <140 mg/dL before meals <180 mg/dL all other times of the day Specimen Anatomical Collection Method Collection Time Receive d Time (Source) Location / / Volume Laterality Blood 01/30/2022 1:41 PM 2 1:41 EDT PM EDT Vitaliy Nobles MD POINT OF CARE TEST ORDERABLE S Performing Organization Address City/[facility]/ZIP Code Phon e Number [address] EKG 12 Lead (01/30/2022 10:33 AM EDT) Component Value Ref Range Test Analysis Performed Pathologis t Method Time At Signature Ventricular rate 64 BPM MUSE SYSTEM Atrial Rate 64 BPM MUSE SYSTEM P-R Interval 162 ms MUSE SYSTEM QRS Duration 94 ms MUSE SYSTEM Q-T Interval 422 ms MUSE SYSTEM QTC Calculated 435 ms MUSE SYSTEM (Bezet) Calculated P [place] 41 degrees MUSE SYSTEM Calculated R [place] -27 degrees MUSE SYSTEM Calculated T [place] 104 degrees MUSE SYSTEM INTERPRETATION Normal sinus rhythm MUSE SYSTEM Anterolateral infarct (cited on or before 09-DEC-2021) Abnormal ECG When compared with ECG of 10-DEC-2021 11:17, No significant change was found Confirmed by Gary Perez ([id number]) on 01/30/2022 5:57:5 2 PM Specimen Anatomical [...] ? Procedure Date: 01/30/2022 ? A #: [id number] ? Primary Physician: Nobles, Vitaliy P ? Case #: [id number] ? File Name: [id number] ? Catheterization Order Number: [id number] ? [facility] ?[facility]ractor [facility] ? Final Report [place], [place] ? Patient Name: ? Don E. Stewa rt ? ID#: ?[id number] ? : ?1945 ? Procedure Date: ? [...] patient was ?designated as ASA Class III. [facility] clinical frailty scale is 5: Mildly [...] was Urgent. The indication for ?the lab nurse visit is stable kn own CAD. Chest [...] guiding catheter an d a 3.5 Fr [place] [address] ??20 Mhz ?using Manual [...] A premounted 2.00 x 26 mm Hardeep Piercy (TUCKER) ? was deployed wi th a [...] Wedelivered along 2.0 x 26 mm HARDEEP Piercy ? TUCKER stent and p ositioned it [...] administered prior to arrival in the lab nurse. ?Recommended anti-platelet/anti- thrombotic regimen: ?Continue aspirin 81 [...] require ?modification of this regimen. C onsult [facility] Interventional Cardiology for ?questions. ?The 1 year [...] using a 2.0 x 26 mm HARDEEP Piercy TUCKER stent. ?This completes the revasculariz ation [...] Don Fatima Procedure Date: 01/30/2022 A #: [id number] Primary Physician: Vitaliy Nobles Case #: [id number] File Name: [id number] Catheterization Order Number: [id number] [facility] Tractor Operator [facility] Final Report [place], [place] Patient Name: Don Fatima ID#: [...] was Urgent. The indication for the lab nurse visit is stable known CAD. Chest pain symptom assessment was: Typical Angina. Technique: A 6 SLFr sheath was inserted in the [facility] radial artery utilizing the Seldinger technique. [...] 1.5 guiding catheter and a 3.5 Fr [place] [facility] [address] 20 Mhz using Manual [...] atmospheres. A premounted 2.00 x 26 mm [place] Piercy (TUCKER) was deployed with a maximum inflation [...] along 2. 0 x 26 mm HARDEEP Piercy TUCKER stent and positioned it at the [...] prior t o arrival in the lab nurse. Recommended anti-platelet/anti-thrombot ic regimen: Continue aspirin 81 [...] require modification of this regimen. Consult [facility] Interventional Cardiology [...] using a 2.0 x 26 mm HARDEEP Piercy TUCKER stent. 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
--- OUTSIDE RECORDS SUMMARY | 2022-04-29 08:08 | XMS_ITS | Encounter Summary ---
:1945 Author Organization [facility] [place] [address] Care Team Providers Name Role Phone Lovely Vicente MD Primary Care Provider Encounter Details Date Type Department Care Team Description 12/24/2021 Orders Only Database Dba Zulma Finch ASCVD (art eriosclerotic [facility] cardiovascular disease) [facility] [place] [address] [place], [place] [phone] (Work) [phone] Social History Tobacco Use Types Packs/Day Years [...] Dolan MD [facility] [address] [place] [address] (Wo rk) 05/28/2022 Laboratory Appointment Lab 05/28/2022 Office Visit Cardiology Zulma Dolan [place] [address] Liz Poole PA [facility] [place] [address] 06/10/2022 Office Visit Dermatology Laura Scherer MD [facility] DR [address] [place], [place] [address] (Wo rk) documented as of this encounter Visit Diagnoses Diagnosis ASCVD (arteriosclerotic cardiovascular d isease) Unspecified cardiovascular disease documented in this encounter Care Teams Corporate Statistical Financial Analyst Relationship Specialty Start Date End Date Lovely Vicente MD PCP - General 04/16/[address] [place] [address] documented as of this encounter
--- OUTSIDE RECORDS SUMMARY | 2022-04-29 08:08 | XMS_ITS | Encounter Summary ---
:1945 Author Organization [facility] [place] [address] Care Team Providers Name Role Phone Lovely Vicente MD Primary Care Provider Reason for Visit Reason Onset Date Comments Medication Refill 12/12/2021 Torsemide Encounter Details Date Type Department Care Team Description 12/12/2021 Refill Cardiology at [facility] Janneth Padilla, Medication Refill [facility] STEPHANIE (Torsemide) [place] [address] CARDIOLOGY DEPT. [place], [place] [address] (Wo rk) Social History Tobacco [...] Dolan MD [facility] er [place], [place] [address] (Wo rk) 05/28/2022 Laboratory Appointment Lab 05/28/2022 Office Visit Cardiology Zulma Dolan MD [facility] [place] [address] Liz Poole PA [facility] [place] [address] 06/10/2022 Office Visit Dermatology Laura Scherer MD [facility] ER DR [address] [place], [place] [address] (Wo rk) documented as of this encounter Visit Diagnoses Diagnosis Chronic systolic heart failure documented in this encounter Care Teams Leasing Representative Relationship Specialty Start Date End Date Lovely Vicente MD PCP - General 04/16/[address] [place] [address] documented as of this encounter
--- OUTSIDE RECORDS SUMMARY | 2022-04-29 08:08 | XMS_ITS | Encounter Summary ---
:1945 Author Organization [facility] [place] [address] Care Team Providers Name Role Phone Lovely Vicente MD Primary Care Provider Reason for Visit Reason Onset Date Comments Follow-up 02/23/2022 Medication adjustmen t and new med Encounter Details Date Type Department Care Team Description 02/23/2022 Telephone Cardiology at [facility] Martha Comer, Follow-up ([facility] RN adjustbrandon t and new [place]) [place] [address] Social History Tobacco Use Types Packs/Day [...] pt & with the following response from STEPAHNIE Poole: Yes, please repeat. ??I placed the order for BMP and sent to [facility]. will call [facility] to make an appointment for next Wednesday03/04/22. [...] tablet) daily. She will correct his pill service planner to the new dose. Will need to check with STEPHANIE Poole about repeat BMP to recheck K+ level. If yes he will get the test done at [facility]. They are aware that he will need to make an appt at [facility] to get the test done. Entresto: states [...] if he qualifies for assistance from the [employer]. She is thankful for the assistance, as he is taking insulin that is very expensive too. Instructed to call this writer technical publications, if he does qualify for assistance from [employer] and that he has gotten the medication so we can review the details of starting this medication. Telephone Encounter - Martha Comer RN - 02/23/2022 6:19 PM EDT ----- Message from STEPHANIE Pratt sent at 02/19/2022 9:26 AM EDT ----- Hi - Checking cost of Entresto to replace losartan Martha Cook I reduced the dose of riaza to 12.5 due to a potassium of 5.4 today. We also discussed switching torsemide to prn when Entresto dispensed. Cr 1.5. Thanks documented in this encounter Plan of Treatment Upcoming Encounters Date Type Specialty Care Team Description 05/28/2022 Appointment Cardiology Zulma Dolan MD [facility] [place], [place] [address] (Wo rk) 05/28/2022 Laboratory Appointment Lab 05/28/2022 Office Visit Cardiology Zulma Dolan MD [facility] [place] [address] Liz Poole PA [facility] [place] [address] 06/10/2022 Office Visit Dermatology Laura Scherer MD [facility] DR [address] [place], [place] [address] (Wo rk) documented as of this encounter Visit Diagnoses Not on filedocumented in this encounter Care Teams Escort Patients Relationship Specialty Start Date End Date Lovely Vicente MD PCP - General 04/16/[address] [place] [address] documented as of this encounter
--- OUTSIDE RECORDS SUMMARY | 2022-04-29 08:08 | XMS_ITS | Encounter Summary ---
:1945 Author Organization [facility] Address [facility] [place] [address] Care Team Providers Name Role Phone Lovely Vicente MD Primary Care Provider Reason for Visit Auth/Cert Specialty Diagnoses / Procedures Referred By Contact Refer red To Contact Diagnoses ASCVD (arteriosclerotic cardiovascular disease) [I25.10] Vitaliy Nobles MD [facility] Procedures PRO PERC TRLUML CORONARY STENT W/ANGIO ONE ART/BRANCH CARDIAC CATHETERIZATION STENT PLACEMENT-SINGLE MAJOR CORONARY ARTERY OR BRANCH [facility] [place] [address] Referral ID Status Reason Start Date Expiration Date Visits Requ ested Visits Authorized [id number] 1 1 Encounter Details Date Type Department Care Team Description 01/30/2022 [facility] Aide Asa Coulter MD CARDIAC CATHETERIZATION [facility] [place] [address] [place] [address] [phone] (Wo rk) Social History Tobacco Use Types [...] Clopidogrel. Please follow up with your director business management in the next 4-6 weeks. We have made a referral to cardiac rehab. Please see the attached instructions regarding care to your right wrist access site. AttachmentsThe following attachments cannot be sent through Care Everywhere. Coronary Angiogram: Post-op (H[place]er)documented in this encounter Medications at Time of [...] RN - 01/30/2022 4:[address] [facility] Short Stay Unit Discharge Note All relevant [...] recent PCI presenting for staged PCI to [facility]. The pt states he has [...] recent PCI presenting for staged PCI to [facility]. 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 I had referred him to cardiac rehab at [facility] last month per HF team. He was waiting until this intervention before starting the program. Reviewed managing angina /use of sl nitroglycerin. Given parameters for home exercise. 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 We discussed short walks several times per day. Will send [facility] his discharge summary from this admission. The patient should be contacted by the Program within 1- 2 weeks from discharge. Brief Op Note - Vitaliy Nobles MD - 01/30/2022 10:19 AM EDT Images from the original note were not included. Formerly [facility] [place] [address] CORONARY ANGIOGRAM AND PERCUTANEOUS CORONARY INTERVENTION REPORT Patient: Don Fatima : 1945 MR number: [id number] Date of Service: 01/30/2022 Account Services Manager: Vitaliy Nobles MD Fellow: KEYON [...] a long 2.0 x 26 mm HARDEEP [place] TUCKER stent and positioned it at the [...] using a 2.0 x 26 mm HARDEEP [place] TUCKER stent. This completes the revascularization ofall [...] Zulma Dolan MD [facility] [place] [address] [place] [address] (Wo rk) 05/28/2022 Laboratory Appointment Lab 05/28/2022 Office Visit Zulma Garrison [place] [facility] [place] [address] Liz Poole PA [facility] [place] [address] 06/10/2022 Office Visit Dermatology Laura Scherer MD [facility] ER DR [address] [facility] [place] [address] (Wo rk) Scheduled Orders Name Type [...] LABORATORY Neutr Abs (ANC) 3.96 1.70 - [facility] 6.10 [facility] x10(3)/[facility] LABORATORY Lymphocytes % 16.3 % [facility] LABORATORY Lymphocytes Abs 0.9 0.9 - 3.2 [facility] x10(3)/[facility] LABORATORY Monocytes % 10.0 % [facility] LABORATORY Monocyte Abs 0.6 0.3 - 0.9 [facility] x10(3)/[facility] LABORATORY Eosinophils % 0.5 % [facility] LABORATORY Eosinophils Abs 0.0 0.0 - 0.4 [facility] x10(3)/[facility] LABORATORY Basophils % 0.5 % [facility] LABORATORY Basophils Abs 0.0 0.0 - 0.1 [facility] x10(3)/[facility] LABORATORY Immature Gran % 0.90 [...] Organization Address City/State/[place] [address] (ABNORMAL) Hemogram (01/30/2022 2:12 PM EDT) Analysis Performed At Patho logist Time Signature WBC 5.5 4.0 - 9.5 [facility] x10(3)/[facility] LABORATORY RBC 4.30 (L) 4.58 - [facility] 5.54 [facility] x10(6)/[facility] LABORATORY Hemoglobin 12.7 (L) 13.7 - [place] 16.5 g/dL [facility] LABORATORY Hematocrit 39.4 (L) 40.5 - [place] 48.5 % [facility] LABORATORY MCV 91.6 82.9 - [place] 93.1 [facility] LABORATORY MCH 29.5 27.5 - [place] 32.1 pg [facility] LABORATORY MCHC 32.2 32.0 - [place] 35.7 g/dL [facility] LABORATORY Platelets 172 145 - 357 [facility] x10(3)/[facility] LABORATORY RDWSD 54.5 (H) 36.0 - [place] 45.0 [facility] LABORATORY RDWCV 16.4 (H) 11.4 - [place] 13.8 % [facility] LABORATORY MPV 9.2 7.6 - 12.9 [place] [facility] LABORATORY nRBC % Auto 0.0 % [facility] LABORATORY nRBC Abs Auto 0.000 0.000 - [place] 0.000 [facility] x10(3)/[facility] LABORATORY Specimen Anatomical Collection Method Collection Time Receive d Time (Source) Location / / Volume Laterality Blood 01/30/2022 2:12 PM 2 2:37 EDT PM EDT Resulting Agency Comment Spec In Lab Eddi Elizabeth Jr., MD HEMATOLOGY ORDERABLES Performing Organization Address City/State/[place] [address] (ABNORMAL) Basic Metabolic Panel (non-fasting) (01/30/2022 2:12 PM EDT) athologist Signature Glucose Lvl 163 65 - 199 [facility] mg[facility]dL [facility] LAB[facility] Comment: Diabetes: >=200 mg/dL plus symp toms BUN 30 (H) 10 - 20 mg/dL [facility] LABORATORY Creatinine 1.47 0.80 - 1.50 mg/dL [facility] [...] Organization Address City/State/[place] [address] POCT Glucose (01/30/2022 1:41 PM EDT) athologist Signature POC Glucose 148 65 - 199 [facility] mg/dL [facility] LABOR[facility] Comment: Supplemental ranges: [...] Center & Hospital/ZIP Code Phon e Number [address] POCT Glucose (01/30/2022 10:48 AM EDT) P athologist Signature POC Glucose 193 65 - 199 [facility] mg/dL [facility] LAB[facility] Comment: Supplemental ranges: <140 mg/dL before meals <180 mg/dL all other times of the day Specimen Anatomical Collection Method Collection Time Receive d Time (Source) Location / / Volume Laterality Blood 01/30/2022 10:48 01/30/2022 AM EDT 10:48 AM EDT Vitaliy Nobles MD POINT OF CARE TEST ORDERABLE S Performing Organization Address [facility] [place] [address] EKG 12 Lead (01/30/2022 10:33 AM EDT) Component Value Ref Range Test Analysis Performed Pathologis t Method Time At Signature Ventricular rate 64 BPM MUSE SYSTEM Atrial Rate 64 BPM MUSE SYSTEM P-R Interval 162 ms MUSE SYSTEM QRS Duration 94 ms MUSE SYSTEM Q-T Interval 422 ms MUSE SYSTEM QTC Calculated 435 ms MUSE SYSTEM (Bezet) Calculated P [place] 41 degrees MUSE SYSTEM Calculated R [place] -27 degrees MUSE SYSTEM Calculated T [place] 104 degrees MUSE SYSTEM INTERPRETATION Normal sinus rhythm MUSE SYSTEM Anterolateral infarct (cited on or before 09-DEC-2021) Abnormal ECG When compared with ECG of 10-DEC-2021 11:17, No significant change was found Confirmed by Gary Perez ([id number]) on 01/30/2022 5:57:5 2 PM Specimen Anatomical [...] Laterality Volume Narrative 01/30/2022 2:09 PM EDT ?[facility] ? Cardiac Cathete rization/Intervention Report ? Patient Name: Don Fatima. ? Procedure Date: 01/30/2022 ? A #: [id number] ? Primary Physician: Nobles, Vitaliy P ? Case #: [id number] ? File Name: [id number] ? Catheterization Order Number: [id number] ? [facility] ? Final Report [place], [place] ? Patient Name: ? Don E. Stewa rt ? ID#: ?[id number] ? : ?1945 ? Procedure Date: ? [...] procedure was Urgent. 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 [...] guiding catheter an d a 3.[address] [facility] [address] ??20 Mhz ?using Manual pullback. ??Imagin [...] A premounted 2.00 x 26 mm Hardeep [place] (TUCKER) ? was deployed wi a maximum [...] Wedelivered along 2.0 x 26 mm HARDEEP [place] ? TUCKER stent and p ositioned it [...] dose administered prior to arrival in the grass farm laborer. ?Recommended anti-platelet/anti- thrombotic regimen: ?Continue aspirin [...] may require ?modification of this regimen. [facility] ?[facility]. ?The [...] using a 2.0 x 26 mm HARDEEP [place] TUCKER stent. ?This completes the revasculariz ation [...] Procedure Note Vitaliy Nobles MD - 03/06/2022 [facility] Cardiac Catheterization/Intervention Re port Patient Name: Don Fatima Procedure Date: 01/30/2022 A #: [id number] Primary Physician: Vitaliy Nobles Case #: [id number] File Name: [id number] Catheterization Order Number: [id number] [facility] [place], [place] Patient Name: Don Fatima ID#: [...] e was Urgent. The indication for the grass farm laborer visit is stable known CAD. Chest [...] 1.5 guiding catheter and a 3.[address] 20 Mhz using Manual pullback. Imaging [...] A premounted 2.00 x 26 mm Hardeep [place] (TUCKER) was deployed with a maximum inflation [...] along 2. 0 x 26 mm HARDEEP [place] TUCKER stent and positioned it at the [...] administered prior t o arrival in the grass farm laborer. Recommended anti-platelet/anti-thrombot ic regimen: Continue aspirin [...] using a 2.0 x 26 mm HAR[place]EP [place] TUCKER stent. This completes the revascularization of [...] POC Glucose 212 (H) 65 - 199 [facility] mg/dL [facility] LABORATORY Comment: Supplemental ranges: <140 mg/dL before meals <180 mg/dL all other times of the day Specimen Anatomical Collection Method Collection Time Receive d Time (Source) Location / / Volume Laterality Blood 01/30/2022 9:04 AM 2 9:04 EDT AM EDT Vitaliy Nobles MD POINT OF CARE TEST ORDERABLE S Performing Organization Address City/State/[place] [address] (ABNORMAL) POCT Glucose (01/30/2022 8:10 AM EDT) athologist Signature POC Glucose 224 (H) 65 - 199 [facility] mg/dL [facility] LAB[facility] Comment: Supplemental ranges: <140 mg/dL before meals <180 mg/dL all other times of the day Specimen Anatomical Collection Method Collection Time Receive d Time (Source) Location / / Volume Laterality Blood 01/30/2022 8:10 AM 2 8:10 EDT AM EDT Vitaliy Nobles MD POINT OF CARE TEST ORDERABLE S Performing Organization Address City/State/[place] [address] documented in this encounter [...] Given 02/2022 10:11 AM EDT 100 mcg (LAUNDRY FOLDER) ONCE PRN, Starting on Wed01/30/22 at 0927, [...] Procedure), Routine niCARdipine (Cardene) (100 mcg/mL) dilution (LAUNDRY FOLDER) (CANCELED ) 0927 (Given - Provider: Vitaliy [...] documented in this encounter Care Teams Supervisor [employer] Relationship Specialty Start Date End Date Lovely Vicente MD PCP - General 04/16/[address] [place] [address] documented as of this encounter
--- OUTSIDE RECORDS SUMMARY | 2022-04-29 08:08 | XMS_ITS | Encounter Summary ---
:1945 Author Organization [facility] [place] [address] Care Team Providers Name Role Phone Lovely Vicente MD Primary Care Provider Encounter Details Date Type Department Care Team Description 12/24/2021 Telephone Public Health at [facility] [place] [address] Social History Tobacco Use Types Packs/Day [...] Zulma Dolan MD [facility] [address] [place], [place] [address] (Wo rk) 05/28/2022 Laboratory Appointment Lab 05/28/2022 Office Visit Cardiology Zulma Dolan MD [facility] [place] [address] Liz Poole PA [facility] [place] [address] 06/10/2022 Office Visit Dermatology Laura Scherer MD [facility] ER DR [address] [place] [address] (Wo rk) documented as of this encounter Visit Diagnoses Not on filedocumented in this encounter Care Teams Model Maker Scale Relationship Specialty Start Date End Date Lovely Vicente MD PCP - General 04/16/[address] [place] [address] documented as of this encounter
--- OUTSIDE RECORDS SUMMARY | 2022-04-29 08:08 | XMS_ITS | Encounter Summary ---
:1945 [place] [address] Care Team Providers Name Role Phone Lovely Vicente MD Primary Care Provider Reason for Visit Reason Onset Date Comments Follow-up 02/26/2022 Entresto start Encounter Details Date Type Department Care Team Description 02/26/2022 Telephone Cardiology at [facility] Martha Comer, Follow-up ([facility] RN start) [place] [phone] Social History Tobacco Use Types Packs/Day [...] on 03/05/22 Getting labs done at : [facility] Order e-faxed by STEPHANIE Poole on 02/24/22. /pt to call on 03/05/22 letting us know to get the BMP results from [facility]. Nursing to get results and contact pt to see how he is tolerating the Entresto. They are to call sooner with any questions/concerns. documented in this encounter Plan of Treatment Upcoming Encounters Date Type Specialty Care Team Description 05/28/2022 Appointment Cardiology Zulma Dolan MD [facility] [place], [place] [address] (Wo rk) 05/28/2022 Laboratory Appointment Lab 05/28/2022 Office Visit Cardiology Zulma Dolan MD [facility] [place] [address] Liz Poole PA [facility] [place] [address] 06/10/2022 Office Visit Dermatology Laura Scherer MD [facility] [address] [place], [place] [address] (Wo rk) documented as of this encounter Visit Diagnoses Not on filedocumented in this encounter Care Teams Chartered Accountant Relationship Specialty Start Date End Date Lovely Vicente MD PCP - General 04/16/[address] [place] [address] documented as of this encounter
--- OUTSIDE RECORDS SUMMARY | 2022-04-29 08:08 | XMS_ITS | Encounter Summary ---
:1945 Author Organization [facility] Address [facility] [place] [address] Care Team Providers Name Role Phone Lovely Vicente MD Primary Care Provider Reason for Visit Auth/Cert Specialty Diagnoses / Procedures Referred By Contact Refer red To Contact Diagnoses ASCVD (arteriosclerotic cardiovascular disease) [I25.10] Vitaliy Nobles MD [facility] Procedures PRO PERC TRLUML CORONARY STENT W/ANGIO ONE ART/BRANCH CARDIAC CATHETERIZATION STENT PLACEMENT-SINGLE MAJOR CORONARY ARTERY OR BRANCH [facility] [place] [address] Referral ID Status Reason Start Date Expiration Date Visits Requ ested Visits Authorized [id number] 1 1 Encounter Details Date Type Department Care Team Description 01/30/2022 Hospital Encounter Short Stay Unit at Vitaliy Nobles, CVD (arteriosclerotic cardiovascular disease); Barbara Blue MD 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 Please follow up with your therapeutic radiologist in the next 4-6 weeks. We have [...] Murray RN - 01/30/2022 4:54 PM EDT [facility] Short Stay Unit Discharge Note All [...] recent PCI presenting for staged PCI to [facility]. The pt states he has been ok. [...] recent PCI presenting for staged PCI to [facility]. 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 I had referred him to cardiac rehab at [facility] last month per HF team. He was waiting until this intervention before starting the program. Reviewed managing angina /use of sl nitroglycerin. Given parameters for home exercise. 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 We discussed short walks several times per day. Will send [facility] his discharge summary from this admission. The patient should be contacted by the Program within 1- 2 weeks from discharge. Brief Op Note - Vitaliy Nobles MD - 01/30/2022 10:19 AM EDT Images from the original note were not included. [facility] [place] [address] CORONARY ANGIOGRAM AND PERCUTANEOUS CORONARY INTERVENTION REPORT Patient: Don Fatima : 1945 MR number: [id number] Date of Service: 01/30/2022 Extrusion Die Corrector: Vitaliy Nobles MD Fellow: KEYON Elizabeth INDICATION: [...] a long 2.0 x 26 mm HARDEEP [place] TUCKER stent and positioned it at the [...] using a 2.0 x 26 mm HARDEEP [place] TUCKER stent. This completes the revascularization ofall [...] Zulma Dolan MD [facility] er [address] [place] 0375 (Wo rk) 05/28/2022 Laboratory Appointment Lab 05/28/2022 Office Visit Cardiology Zulma Dolan MD [facility] [address] [place] [address] Liz Poole PA [facility] [place] [address] 06/10/2022 Office Visit Dermatology Laura Scherer MD [facility] ER DR [address]-DERMAT O[place], [place] [address] (Wo rk) Scheduled Orders [...] P athologist Signature Neutrophils % 71.8 % [facility] LABORATORY Neutr Abs (ANC) 3.96 1.70 - [facility] 6.[address] [facility] x10(3)/[facility] LABORATORY Lymphocytes % 16.3 % [facility] LABORATORY Lymphocytes Abs 0.9 0.9 - 3.2 [facility] x10(3)/[facility] LABORATORY Monocytes % 10.0 % [facility] LABORATORY Monocyte Abs 0.6 0.3 - 0.9 [facility] x10(3)/[facility] LABORATORY Eosinophils % 0.5 % [facility] LABORATORY Eosinophils Abs 0.0 0.0 - 0.4 [facility] x10(3)/[facility] LABORATORY Basophils % 0.5 % [facility] LABORATORY Basophils Abs 0.0 0.0 - 0.1 [facility] x10(3)/[facility] LABORATORY Immature Gran % 0.90 % WHITE [...] Organization Address City/State/ZIP [place] [address] (ABNORMAL) Hemogram (01/30/2022 2:12 PM EDT) Analysis Performed At Patho logist Time Signature WBC 5.5 4.0 - 9.5 [facility] x10(3)/[facility] LABORATORY RBC 4.30 (L) 4.58 - [place] [address] [facility] x10(6)/[facility] LABORATORY Hemoglobin 12.7 (L) 13.7 - [place] 16.5 g/dL [facility] LABORATORY Hematocrit 39.4 (L) 40.5 - [place] 48.5 % [facility] LABORATORY MCV 91.6 82.9 - [facility] 93.1 [facility] LABORATORY MCH 29.5 27.5 - [place] ZHAOSU 32.[address] [facility] LABORATORY MCHC 32.2 32.0 - [place] 35.7 g/dL [facility] LABORATORY Platelets 172 145 - 357 [facility] x10(3)/[facility] LABORATORY RDWSD 54.5 (H) 36.0 - [facility] 45.0 [facility] LABORATORY RDWCV 16.4 (H) 11.4 - [facility] 13.8 % [facility] LABORATORY MPV 9.2 7.6 - 12.9 [facility] LABORATORY nRBC % Auto 0.0 % [facility] LABORATORY nRBC Abs Auto 0.000 0.000 - [facility].[address] [facility] x10(3)/[facility] LABORATORY Specimen Anatomical Collection Method Collection Time Receive d Time (Source) Location / / Volume Laterality Blood 01/30/2022 2:12 PM 2 2:37 EDT PM EDT Resulting Agency Comment Spec In Lab Eddi Elizabeth Jr., MD HEMATOLOGY ORDERABLES Performing Organization Address City/State/[place] [address] (ABNORMAL) Basic Metabolic Panel (non-fasting) (01/30/2022 2:12 PM EDT) P athologist Signature Glucose Lvl 163 65 - 199 [facility] mg/dL [facility] LABORATORY Comment: Diabetes: >=200 mg/dL plus symp toms BUN 30 (H) 10 - 20 mg/dL [facility] LABORATORY Creatinine 1.47 0.80 - 1.50 mg/dL [facility] LABORATORY Sodium 140 135 - [...] Organization Address City/State/[place] [address] POCT Glucose (01/30/2022 1:41 PM EDT) athologist Signature POC Glucose 148 65 - 199 [facility] mg/dL [facility] LABORATORY Comment: Supplemental ranges: <140 mg/dL before meals <180 mg/dL all other times of the day Specimen Anatomical Collection Method Collection Time Receive d Time (Source) Location / / Volume Laterality Blood 01/30/2022 1:41 PM 1:41 EDT PM EDT Vitaliy Sandra Nobles MD POINT OF CARE TEST ORDERABLE S Performing Organization Address City/[facility]/ZIP Code Phon e Number [address] POCT Glucose (01/30/2022 10:48 AM EDT) P athologist Signature POC Glucose 193 65 - 199 [facility] mg/dL [facility] LABORATORY Comment: Supplemental ranges: <140 mg/dL before meals <180 mg/dL all other times of the day Specimen Anatomical Collection Method Collection Time Receive d Time (Source) Location / / Volume Laterality Blood 01/30/2022 10:48 01/30/2022 AM EDT 10:48 AM EDT Vitaliy Sandra Nobles MD POINT OF CARE TEST ORDERABLE S Performing Organization Address [facility] [place] [address] EKG 12 Lead (01/30/2022 10:33 AM EDT) Component Value Ref Range Test Analysis Performed Pathologis t Method Time At Signature Ventricular rate 64 BPM MUSE SYSTEM Atrial Rate 64 BPM MUSE SYSTEM P-R Interval 162 ms MUSE SYSTEM QRS Duration 94 ms MUSE SYSTEM Q-T Interval 422 ms MUSE SYSTEM QTC Calculated 435 ms MUSE SYSTEM (Bezet) Calculated P [place] 41 degrees MUSE SYSTEM Calculated R [place] -27 degrees MUSE SYSTEM Calculated T [place] 104 degrees MUSE SYSTEM INTERPRETATION Normal sinus rhythm MUSE SYSTEM Anterolateral infarct (cited on or before 09-DEC-2021) Abnormal ECG When compared with ECG of 10-DEC-2021 11:17, No significant change was found Confirmed by Gary Perez ([id number]) on 01/30/2022 5:57:5 2 PM Specimen Anatomical Collection Method Collection Time Receive d Time (Source) Location / / Volume Laterality 01/30/2022 10:33 01/30/2022 5:57 AM EDT PM EDT Vitaliy Sandra Nobles MD ECG ORDERABLES Performing Organization Address City/[facility]/ZIP Code Phon e Number MUSE SYSTEM CARDIAC CATHETERIZATION (01/30/2022 10:16 AM EDT) Anatomical Region Laterality Modality Other Specimen (Source) Anatomical Location Collection Method / Collectio n Time Received Time / Laterality Volume Narrative 01/30/2022 2:09 PM EDT ?[facility] ? Cardiac Cathete rization/Intervention Report ? Patient Name: Don Fatima. ? Procedure Date: 01/30/2022 ? A #: [id number] ? Primary Physician: Nobles, Vitaliy P ? Case #: [id number] ? File Name: [id number] ? Catheterization Order Number: [id number] ? [facility] ? Final Report [place], [place] ? Patient Name: ? Don Mccollum. Stewa rt ? ID#: ?[id number] ? : ?1945 ? Procedure Date: ? [...] ?designated as ASA Class III. Th e [facility] clinical frailty scale is 5: Mildly [...] Urgent. The indication for ?the cath lab nurse visit is stable kn own CAD. Chest pain symptom assessment ?was: Typical Angina. ? Technique: ?A 6 SLFr sheath was inserted in the right radial artery utilizing the ?Seldinger technique. The right coronary artery was injected utilizing a ?IR 2.0 catheter. Coronary stent insertion was performed and the equipment ?utilized will be described in [facility] intervention summary section. 9,000 ?units of [...] guiding catheter an d a 3.5 [address] [place] [address] ??20 Mhz ?using Manual pullback. ??Imagin [...] A premounted 2.00 x 26 mm Hardeep [place] (TUCKER) ? was deployed wi a maximum [...] Wedelivered along 2.0 x 26 mm HARDEEP [place] ? TUCKER stent and p ositioned it [...] administered prior to arrival in the cath lab nurse. ?Recommended anti-platelet/anti- thrombotic regimen: ?Continue [...] using a 2.0 x 26 mm HAR[place]EP [place] TUCKER stent. ?This completes the revasculariz ation [...] Procedure Note Vitaliy Nobles MD - 03/06/2022 [facility] Cardiac Catheterization/Intervention Re port Patient Name: Don Fatima Procedure Date: 01/30/2022 A #: [id number] Primary Physician: Vitaliy Nobles Case #: [id number] File Name: [id number] Catheterization Order Number: [id number] [facility] Final Report [place], [place] Patient Name: Don Fatima [...] Urgent. The indication for the cath lab nurse visit is stable known CAD. [...] 1.5 guiding catheter and a 3.[address] 20 Mhz using Manual pullback. Imaging [...] atmospheres. A premounted 2.00 x 26 mm C[place] (TUCKER) was deployed with a maximum inflation [...] along 2. 0 x 26 mm HARDEEP [place] TUCKER stent and positioned it at the [...] prior t o arrival in the cath lab nurse. Recommended anti-platelet/anti-thrombot ic regimen: Continue [...] modification of this regimen. Consult D [facility] Interventional Cardiology [...] using a 2.0 x 26 mm [place]EP [place] TUCKER stent. This completes the revascularization of [...] 212 (H) 65 - 199 [facility] [...] Organization Address City/State/[place] [address] (ABNORMAL) POCT Glucose (01/30/2022 8:10 AM EDT) athologist Signature POC Glucose 224 (H) 65 - 199 [facility] mg/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 ASHD (arteriosclerotic heart disease) Coronary atherosclerosis of unspecified type of vessel, [place] or graft ASCVD (arteriosclerotic cardiovascular d isease) Unspecified cardiovascular disease documented in this encounter Admitting Diagnoses Diagnosis CAD (coronary artery disease) Coronary atherosclerosis of unspecified type of vessel, [place] or graft documented in this encounter Administered [...] tablet (CANCELED) 083 9 (Given - Provider: Kaetrin Kay RN) ONCE PRN, Starting on Wed01/30/22 [...] units/mL) injection (CANCELED) 1023 (Given - Provider: Jte Reina, VAMSI) ONCE PRN, Starting on Wed01/30/22 [...] Procedure), Routine niCARdipine (Cardene) (100 mcg/mL) dilution (DIE MAKER STAMPING) (CANCELED ) 0927 (Given - Provider: Vitaliy [...] (Intra-Procedure) documented in this encounter Care Teams Record Center Specialist Relationship Specialty Start Date End Date Lovely Vicente MD PCP - General 04/16/[address] [place] [address] documented as of this encounter
--- OUTSIDE RECORDS SUMMARY | 2022-04-29 08:08 | XMS_ITS | Encounter Summary ---
:1945 Author Organization [facility] Address [facility] [place] [address] Care Team Providers Name Role Phone Lovely Vicente MD Primary Care Provider Reason for Visit Reason Comments Prior Authorization Entresto 24-26mg tablets Encounter Details Date Type Department Care Team Description 02/20/2022 Specialty Pharmacy Pharmacy at [facility] Lamberto Smith Prior Authorization [facility] J (Entresto 24-26mg Drive tablets) [place] [id number] Social History Tobacco Use Types Packs/Day Years [...] Don Fatima Patient : 1945 Patient Address: [address] [place] [address] [place] [id number] (home) Medication Name: ENTRESTO 24 MG-26 MG TABLET Medication ID: [id number] Patient Location: [facility] 4A Patient Location Comment: Medication Strength Frequency Requested: Entresto 24-26mg tablets / One tablet twice daily Qty/Day Supply: New Start: New to Therapy Diagnosis & ICD-10 Code: Chronic systolic heart failure, I50.22 Subscriber Insurance: StartX [facility] Subscriber Insurance Comment: Fax: Physician: LIZ CARRERA Physician Comment : PA Status: NO PA REQUIRED Insurance mandated Pharmacy: Unknown [facility]able at [facility]: Yes Insurance requirements/notes: None Copay: $119.01 (goes to coverage gap/odalys monteiro) Copay assistance: Evgen Copay assistance comment: If cost isn't affordable, then we'll suggest enrollment in the currently open [facility] Heart Failure zoila, which provides up to $1000 in copay assistance. If zoila closes, or doesn't work out, then the patient can attempt enrollment in the auto technician mechanic assistance program, the [employer] Patient Assistance [employer] (NPAF). At which point we'd refer to [facility] for assistance with enrollment. Pharmacy [...] [facility] [place] [address] (Wo rk) 05/28/2022 Laboratory Appointment Lab 05/28/2022 Office Visit Cardiology Zulma Dolan MD [facility] [place] [address] Liz Carrera PA [facility] [place] [address] 06/10/2022 Office Visit Dermatology Laura Scherer MD [facility] ER DR [address]-DERMAT [place], [place] [address] (Wo rk) documented as of this encounter Visit Diagnoses Not on filedocumented in this encounter Care Teams Internal Control Specialist Relationship Specialty Start Date End Date Lovely Vicente MD PCP - General 04/16/[address] [place] [address] documented as of this encounter
--- OUTSIDE RECORDS SUMMARY | 2022-04-29 08:08 | XMS_ITS | Encounter Summary ---
:1945 Author Organization [facility] [place] [address] Care Team Providers Name Role Phone Lovely Vicente MD Primary Care Provider Encounter Details Date Type Department Care Team Description 02/23/2022 Refill Cardiology at [facility] Liz Poole PA [facility] [place] [address] Cardiology Dept [phone] [place], [place] 0[address] (Wo rk) Social History Tobacco [...] Oneill RPH Transfer of Services Don Fatima [address] [place] [address] [place] [address] Telephone Information: Work Phone Not on file. [facility] has received a prescription for Entresto for patient Mr. Don Fatima 76 y.o. (1945). The patient requests the prescription to be filled with [facility]. We spoke to patient to notify of this change and to provide number to reach the new filling pharmacy. A copyof patient's medication profile was offered to the accepting pharmacy. Additional instructions provided to patient about transfer: no The patient has been advised to call the [facility] at [phone] with any questionsor concerns on this referral. Thank you, Oxana Oneill RPH 02/23/22 4:26 PM Patient understands no changes to current drug regimen were made at this time. documented in this encounter Plan of Treatment Upcoming Encounters Date Type Specialty Care Team Description 05/28/2022 Appointment Cardiology Zulma Dolan MD [facility] [place], [place] 0[address] (Wo rk) 05/28/2022 Laboratory Appointment Lab 05/28/2022 Office Visit Cardiology Zulma Dolan MD [place] [address] Liz Poole PA [facility] [place] [address] 06/10/2022 Office Visit Dermatology Laura Scherer MD [facility] DR TEJA GR-DERMAT [place], [place] 0[address] (Wo rk) documented as of this encounter Visit Diagnoses Not on filedocumented in this encounter Care Teams Provider Enrollment Specialist Relationship Specialty Start Date End Date Lovely Vicente MD PCP - General 04/16/[address] [place] [address] documented as of this encounter
--- OUTSIDE RECORDS SUMMARY | 2022-04-29 08:08 | XMS_ITS | Encounter Summary ---
:1945 Author Organization [facility] Address [facility] [place] [address] Care Team Providers Name Role Phone Lovely Vicente MD Primary Care Provider Reason for Visit Reason Onset Date Comments Medication Refill 03/06/2022 Metoprolol Succinate Encounter Details Date Type Department Care Team Description 03/06/2022 Refill Cardiology at [facility] Liz Poole PA Medication Refill [facility] (In toprolol Succinate) [place] [address] Cardiology Dept [phone] [place], [place] 0375 (Wo rk) Social History Tobacco [...] MD [facility] [place] [address] (Wo rk) 05/28/2022 Laboratory Appointment Lab 05/28/2022 Office Visit Cardiology Zulma Dolan MD [facility] [place] [address] Liz Poole PA [facility] [place] [address] 06/10/2022 Office Visit Dermatology Laura Scherer MD [facility] ER DR [address]-DERMAT [place], [place] 0[address] (Wo rk) documented as of this encounter Visit Diagnoses Diagnosis Chronic systolic heart failure Cardiomyopathy, ischemic Other specified forms of chronic ischemi c heart disease documented in this encounter Care Teams Wagon Drill Operator Relationship Specialty Start Date End Date Lovely Vicente MD PCP - General 04/16/[address] [place] [address] documented as of this encounter
--- OUTSIDE RECORDS SUMMARY | 2022-04-29 08:09 | XMS_ITS | Encounter Summary ---
:1945 Author Organization [facility] [place] [address] Care Team Providers Name Role Phone Lovely Vicente MD Primary Care Provider Encounter Details Date Type Department Care Team Description 12/12/2021 Telephone Cardiology at [facility] [place] [address] Social History Tobacco Use Types Packs/Day [...] - 12/12/2021 11:36 AM EDT RTC to [facility] regarding pharmacists questions as to whether the [...] Dolan MD [facility] [place] [address] Liz Poole PA [facility] [place] [address] 06/10/2022 Office Visit Dermatology Laura Scherer MD [facility] DR TEJA GR-DERMAT [place], [place] [address] (Wo rk) documented as of this encounter Visit Diagnoses Not on filedocumented in this encounter Care Teams Wardrobe Specialty Worker Relationship Specialty Start Date End Date Lovely Vicente MD PCP - General 04/16/[address] [place] [address] documented as of this encounter
--- OUTSIDE RECORDS SUMMARY | 2022-04-29 08:09 | XMS_ITS | Encounter Summary ---
:1945 Author Organization [facility] [place] [address] Care Team Providers Name Role Phone Lovely Vicente MD Primary Care Provider Reason for Referral Consultation (Routine) - Closed Specialty Diagnoses / Referred By Contact Referred To Contact Procedures Cardiac Rehabilitation Diagnoses Acute HFrEF (heart failure with reduced ejection fraction) Janneth Padilla, Cardiac Rehab, [address] [place] C[place]OLOGY DEPT. [address] [place] [address] Referral ID Status Reason Start Date Expiration Date Visits V isits Requested Authorized [id number] Closed Consult, 12/12/2021 12/12/2022 36 36 Test & Treat Reason for Visit Auth/Cert Specialty Diagnoses / Procedures Referred By Contact Refer red To Contact Diagnoses NSTEMI Procedures emerg ipi Referral ID Status Reason Start Date Expiration Date Visits Requ ested Visits Authorized [id number] 1 1 Encounter Details Date Type Department Care Team Description 12/08/2021 - Hospital Encounter Intermediate Cardiac Iker Cuevas MD [facility] [place] [address] Non-ST elevation myocardial infarction ( NSTEMI); 12/12/2021 Care Unit Ifeanyi Rene MD [facility] [address] ST elevation myocardial infarction (STEM I), unspecified artery; [facility] ([facility] Acute HFr EF (heart failure with reduced ejection fraction) [place] [address] Social History Tobacco Use Types Packs/Day Years [...] Don Fatima Patient Age: 76 y.o. Language: Serbian Race: White Ethnicity: Not nor Admit date: [...] Peter PA-C Kelly LaFlamme PA-C Cardiovascular Medicine [phone] Discharge Diagnoses (Hospital Problems) and Secondary Diagnoses [...] 3.75 guiding catheter and a 3.5 Fr [facility] 20 Mhz using Manual pullback. Imaging was successful. Image quality was good. The ostial LCX showed moderate diffuse atherosclerotic plaque with scattered three quadrant calcification. Measurements were performed after pre-dilation. Post Intervention: The stent was well expanded and apposed. Intravascular Ultrasound was performed in the distal LM using a 7 Fr EBU 3.75 guiding catheter and a 3.5 Fr [facility] 20 Mhz using Manual pullback. Imaging was [...] congestion and cardiomegaly. ?? TTE from [facility] 12/08/21 ? Prior Cardiac Studies: TTE 07/28/2019 [...] thyroidectomy in 2012 who presented to [facility] with 1 week progressing breathlessness with patient [...] with Liz Poole PA-C. ?? At [facility], respiratory distress with hypoxia 86% on room [...] mg PO daily in place of lasix. [place] is new for him and he will [...] be ~$24/mo; affordable per patient. Post [facility] he was started on Eliquis. He [...] appointments: During 8am-5pm Wednesday through Wednesday call [phone] to speak with a nurse in the cardiology clinic All other times call [phone] and ask to speak to the pnp weigher production. Return to work: One week Driving: No driving for 48 hours after catheterization. Follow up Appointments: PCP Lovely Vicente MD [phone] to see patient at the end of December for annual check up. Patient to see Dr. Lorenzana at 1120 am at December 19 for a post hospital check up. Lease Administration Supervisor Dr. De Oliveira to see you in [facility]. Left a message for office to set a date and time. Please call [phone] Nobles to see the patient for a same day cath in 2-3 weeks from now. Office to call with a date and time. For questions please call [phone] Home oxygen therapy: N/A Arrangements for VNA/home care: none Future Appointments and Orders Future Orders Complete By Expires Basic Metabolic Panel (non-fasting) [LAB15 Custom] 12/19/2021 (Approximate) 12/12/2022 Process Instructions: INCLUDES: Calcium, BUN, Creat, GFR, Glucose, Lytes Scheduling Instructions: Comments: Questions: Referral to Cardiac Rehab [XWC068 Custom] As directed Process Instructions: If no [...] appointments: During 8am-5pm Wednesday through Wednesday call [phone] to speak with a nurse in the cardiology clinic All other times call [phone] and ask to speak to the pnp weigher production. Return to work: One week Driving: No driving for 48 hours after catheterization. Follow up Appointments: PCP Lovely Vicente MD [phone] to see patient at the end of December for annual check up. Patient to see Dr. Lorenzana at 1120 am at December 19 for a post hospital check up. Lease Administration Supervisor Dr. De Oliveira to see you in [facility]. Left a message for office to set a date and time. Please call [phone] Nobles to see the patient for a same day cath in 2-3 weeks from now. Office to call with a date and time. For questions please call [phone] Home oxygen therapy: N/A Arrangements for VNA/home [...] Progress Note Patient Name: Don Fatima Service: FIBERLINE SUPERVISOR / PA Responsible Attending: Ifeanyi Truong [...] was given Lasix 80mg IV x1 in [facility]. Tolerated procedure well. Home today at [...] 1.13* 0.92* 0.89* Pertinent Radiographic/Diagnostic Results: R/[facility] 12/10/21 Hemodynamics: Right Heart Pressures Resting: [...] vascular congestion and cardiomegaly. TTE from [facility] 12/08/21 Prior Cardiac Studies: TTE 07/28/2019 SUMMARY: [...] with MD Janneth Neville PA 12/12/2021 Pager [phone] Associated attestation - Ifeanyi Truong MD - [...] w/sustained AIVR, resolved on own. Asymptomatic, MD NAIDNE notified. See flowsheets for I&O. Call [facility] Management Pager [phone] 20 minutes of this 35 minute visit [...] Progress Note Patient Name: Don Fatima Service: FIBERLINE SUPERVISOR / PA Responsible Attending: Iker Cuevas [...] was given Lasix 80mg IV x1 in [facility]. Tolerated procedure well. Review of Systems: [...] 1.13* 0.92* 0.89* Pertinent Radiographic/Diagnostic Results: R/[facility] 12/10/21 Hemodynamics: Right Heart Pressures Resting: [...] vascular congestion and cardiomegaly. TTE from [facility] 12/08/21 Prior Cardiac Studies: TTE 07/28/2019 SUMMARY: [...] answered his questions. Iker Cuevas MD [facility] Total time spent on review of records prior to visit, face to face time with patient during visit, documentation, and coordination of care with other clinicians: 25 minutes. . Iker Cuevas MD - 12/10/2021 12:30 PM EDT Images from the original note were not included. Inpatient Cardiology Progress Note Patient Name: Don Fatima Service: FIBERLINE SUPERVISOR / PA Responsible Attending: Iker Cuevas [...] was given Lasix 80mg IV x1 in [facility]. Tolerated procedure well. Review of Systems: [...] ??? heparin (porcine) infusion 1,600 Units/hr (12/09/21 1343) PRN Meds:ipratropium-albuteroL, senna-docusate, bisacodyL, sodium chloride 0.9 [...] 1.13* 0.92* 0.89* Pertinent Radiographic/Diagnostic Results: R/[facility] 12/10/21 Hemodynamics: Right Heart Pressures Resting: [...] vascular congestion and cardiomegaly. TTE from [facility] 12/08/21 Prior Cardiac Studies: TTE 07/28/2019 SUMMARY: [...] Discussed with MD Migdalia Peter PA-C Pager #[phone] 12/10/2021 Cardiology Attending Note I have seen [...] and given pictures. Iker Cuevas MD [facility] Total time spent on review of records prior to visit, face to face time with patient during visit, documentation, and coordination of care with other clinicians: 35 minutes. Iker Cuevas MD - 12/09/2021 7:28 AM EDT Images from the original note were not included. Inpatient Cardiology Progress Note Patient Name: Don Fatima Service: FIBERLINE SUPERVISOR / PA Responsible Attending: Iker Cuevas [...] ??? heparin (porcine) infusion 1,600 Units/hr (12/09/21 4250) PRN Meds:ipratropium-albuteroL, sodium chloride 0.9 % (flush), [...] vascular congestion and cardiomegaly. TTE from [facility] 12/08/21 Prior Cardiac Studies: TTE 07/28/2019 SUMMARY: [...] Discussed with MD Migdalia Peter PA-C Pager #[phone] 12/09/2021 Cardiology Attending Note I have seen and examined the patient. I agree with the findings above. Developed CHF early this am despite getting more iv lasix last evening. Feeling better now. INR > 2. Lungs still wet at base. Echo at [facility] showed EF 35% with mild mod MR slightly lower than last value here. -vit K 2.5 orally to facilitate correction of INR- this will take 12-24 hours to take effect -furosemide 80 mg iv now -postpone right and left heart cath until tomorrow given INR and ADHF -increase statin to achieve LDL < 70 -CPAP tonight Iker Cuevas MD [facility] Total time spent on [...] thyroidectomy in 2012 who presented to [facility] with 1 week progressing breathlessness with patient [...] 03/2021 with Liz Poole PA-C. At [facility], respiratory distress with hypoxia 86% on room [...] at [facility] ??? PRO AMPUTATION FOOT, TRANSMETATARSAL Right 08/09/2017 AMPUTATION, TRANSMETATARSAL (WRVU 12.71) performed by Yonathan Smith MD at [facility] ??? [...] by Lamar Smith MD at [facility] ??? PRO ENDOSCOPY W/VIDEO-ASST VEIN HARVEST, [...] 65 - 199 mg/dL Labs at [facility] 12/08/2021-troponin I 8004 (UN L <60), 12/07- [...] for ADRs. Trend troponins. Admission EKG. [facility] 12/09; consented. TTE. Telemetry monitoring, daily [...] #Diet-carb control; n.p.o. after midnight for [facility] #DVT prophy- heparin infusion #GI prophy- PPI Discussed with MD Morgan Peter PA-C APP2 pager [phone] 12/08/2021 Cardiology Attending Note I have seen [...] is type 1 due to graft or [place] coronary stenosis vs acute injury from CHF. 3. PAF: currrently in NSR. Have replaced warfarin with heparin 4. PAD: stable 5. DM: stable 6. CKD: will monitor and minimize contrast. Pt very appreciative of Dr. Yuan Retana's care in 2018. Will let him know patient is here. Iker Cuevas MD [facility] documented in this encounter [...] Type: *No Product type* / Secondary Insurance: [employer] [place] Prescription Coverage: Yes This plan was [...] cath without complications. Migdalia Parker PA-C Pager #[phone] 12/10/2021 Initial Assessments - Nick Georges RN [...] COVID test: Lab Results Component Value Date [id number] Not Detected 12/08/2021 Past medical History: Past [...] [facility] must abide by [place] law. The hierarchy [...] (i) The agent with financial power of mergers and acquisitions attorney or a conservator appointed in accordance [...] standard, cane - straight Home Address: [address] [place] [address] [place] [address] Social & Family Supports: All names listed below confirmed with patient as current and correct Extended Emergency Contact Information Primary Emergency Contact: Kisha Fatima Address: [address] [place] [address] [place] [address] [facility] [place] Relation: Spouse Secondary Emergency Contact: Elba Swenson Address: [address] [place] Relation: Child Current Care [...] Type: *No Product type* / Secondary Insurance: [employer] [facility] Prescription Coverage: Yes Preferred Pharmacy: [facility] Home Delivery [facility] [address] [address] - [address] [address] [place] Status: Patient is a : unable to assess Primary Care Provider: Lovely Vicente MD [phone] Patient/Caregiver Goals of Treatment: Get out of here Potential Needs for Transition of Care: none Agency Referrals: none patient has used [email or web address] in the past Transportation: no concerns Transportation Anticipated: family or friend will provide Concerns to be Addressed: patient refuses services, discharge planning Assessment: Patient is [facility] Service pager [phone] for 76 y.o.??male??with h/o??CAD s/p 3vCABG (THOMPSON-LAD, [...] status on current unit. Nick Georges RN chip bin operator, Office of Care Management Pager: [phone] Brief Op Note - Vitaliy Nobles MD - 12/10/2021 8:31 AM EDT Images from the original note were not included. [facility] [place] [address] CORONARY ANGIOGRAM AND PERCUTANEOUS CORONARY INTERVENTION REPORT Patient: Don Fatima : 1945 MR number: [id number] Date of Service: 12/10/2021 Marketing Executive: Vitaliy Nobles MD Fellow: [place]o [place] MD [...] management and to provide a review of press tender long goods diabetes care. Diabetes History: Don Fatima has had diabetes for 10 years. He has been on insulin for the last several years andis managed by his PCP. Lives in [place], [place] with his . States that he [...] Hold] heparin (porcine) infusion 1,600 Units/hr (12/09/21 9954) PRN: [SEP Hold] ipratropium-albuteroL, [SEP Hold] senna-docusate, [...] provide care for your patient Desirae Shaper ECHOCARDIOLOGIST Endocrinology Pager [phone] 70 minutes of this [...] for further details. STEPHANIE Rebolledo 12/08/2021 Pager [phone] documented in this encounter Plan of Treatment Upcoming Encounters Date Type Specialty Care Team Description 05/28/2022 Appointment Cardiology Zulma Dolan MD [facility] [place], [place] [address] (Wo rk) 05/28/2022 Laboratory Appointment Lab 05/28/2022 Office Visit Cardiology Zulma Dolan MD [facility] [place] [address] Liz Poole PA [facility] [place] [address] 06/10/2022 Office Visit Dermatology Laura Scherer MD [facility] [address] [place], [place] [address] (Wo rk) Scheduled Referrals Name [...] 215 (H) 65 - 199 [facility] mg/dL [facility] [...] City/State/[place] [address] (ABNORMAL) Differential, Automated (12/12/2021 4:51 AM EDT) athologist Signature Neutrophils % 75.4 % [facility] LABORATORY Neutr Abs (ANC) 5.95 1.70 - [facility] 6.10 [facility] x10(3)/[facility] LABORATORY Lymphocytes % 12.2 % [facility] LABORATORY Lymphocytes Abs 1.0 0.9 - 3.2 [facility] x10(3)/[facility] LABORATORY Monocytes % 9.5 % [facility] LABORATORY Monocyte Abs 0.8 0.3 - 0.9 [facility] x10(3)/[facility] LABORATORY Eosinophils % 1.8 % [facility] LABORATORY Eosinophils Abs 0.1 0.0 - 0.4 [facility] x10(3)/[facility] LABORATORY Basophils % 0.5 % [facility] LABORATORY Basophils Abs 0.0 0.0 - 0.1 [facility] x10(3)/[facility] LABORATORY Immature Gran % 0.60 % [facility] [...] Abs 0.05 (H) 0.00 - 0.04 x10(3)/[facility] LABORATORY Specimen Anatomical Collection Method Collection Time Receive d Time (Source) Location / / Volume Laterality Blood 12/12/2021 4:51 AM 2 5:06 EDT AM EDT Resulting Agency Comment Spec In Lab Bijan Sun MD HEMATOLOGY ORDERABLES Performing Organization Address City/State/[place] [address] (ABNORMAL) Hemogram (12/12/2021 4:51 AM EDT) Analysis Performed At Patho logist Time Signature WBC 7.9 4.0 - 9.5 [facility] x10(3)/[facility] LABORATORY RBC 4.19 (L) 4.58 - [facility] 5.54 [facility] x10(6)/[facility] LABORATORY Hemoglobin 12.1 (L) 13.7 - [facility] 16.[facility] g/dL [facility] LABORATORY Hematocrit 36.7 (L) 40.5 - [facility] 48.5 % [facility] LABORATORY MCV 87.6 82.9 - [facility] 93.1 fL [facility] LABORATORY MCH 28.9 27.5 - [facility] 32.1 pg [facility] LABORATORY MCHC 33.0 32.0 - [facility] 35.7 g/dL [facility] LABORATORY Platelets 231 145 - 357 [facility] x10(3)/[facility] LABORATORY RDWSD 47.2 (H) 36.0 - [place] [place] 45.0 [facility] LABORATORY RDWCV 14.6 (H) 11.4 - [facility] 13.8 % [facility] LABORATORY MPV 9.5 7.6 - 12.9 [facility] LABORATORY nRBC % Auto 0.0 % [facility] LABORATORY nRBC Abs Auto 0.000 0.000 - [facility] 0.000 [facility] x10(3)/[facility] LABORATORY Specimen Anatomical Collection Method Collection Time Receive d Time (Source) Location / / Volume Laterality Blood 12/12/2021 4:51 AM 2 5:06 EDT AM EDT Resulting Agency Comment Spec In Lab Bijan Sun MD HEMATOLOGY ORDERABLES Performing Organization Address City/[facility]/[place] [address] (ABNORMAL) Prothrombin Time (12/12/2021 4:51 AM EDT) P athologist Signature PT 14.9 (H) 9.4 - 12.5 [facility] LABORATORY INR 1.3 [facility]/[place] [address] (ABNORMAL) BMP w/fasting Glucose (12/12/2021 4:51 AM EDT) athologist Signature Glucose 152 (H) 65 - 99 [facility] Fasting mg/dL [facility] LABORATORY Comment: ?Fasting* Glucose Interpretive [...] Organization Address City/State/[place] [address] Magnesium (12/12/2021 4:51 AM EDT) P athologist Signature Magnesium 1.02 0.69 - 1.07 [facility] mmol/L [facility] LABORATORY Specimen Anatomical Collection Method Collection Time Receive d Time (Source) Location / / Volume Laterality Blood 12/12/2021 4:51 AM 2 5:06 EDT AM EDT Resulting Agency Comment Spec In Lab Iker Cuevas MD CHEMISTRY ORDERABLES Performing Organization Address City/[facility]/[place] [address] POCT Glucose (12/12/2021 3:43 AM EDT) P athologist Signature POC Glucose 138 65 - 199 [facility] mg/dL [facility] [...] Organization Address City/State/[place] [address] POCT Glucose (12/11/2021 11:44 PM EDT) athologist Signature POC Glucose 124 65 - 199 [facility] mg/dL [facility]/[place] [address] (ABNORMAL) POCT Glucose (12/11/2021 8:12 PM EDT) athologist Signature POC Glucose 200 (H) 65 - 199 [facility] mg/dL [facility]/[place] [address] (ABNORMAL) POCT Glucose (12/11/2021 [...] Organization Address City/State/[place] [address] (ABNORMAL) POCT Glucose (12/11/2021 4:00 PM EDT) P athologist Signature POC Glucose 383 (H) 65 - 199 [facility] mg/dL [facility]/[place] [address] (ABNORMAL) POCT Glucose (12/11/2021 12:01 PM EDT) athologist Signature POC Glucose 342 (H) 65 - 199 [facility] mg/dL [facility] [...] [facility]/[place] [address] COVID-19 PCR (12/11/2021 10:13 AM EDT) [facility] gist Method Time Signature SARS-CoV-2 Not Detected Not Detected [facility] RNA [facility] LABORATORY Comment: This result should be [...] diagnosis of COVID-19 is performed using the [employer]ianna FRIEND S-CoV-2 Assay as authorized by the FDA Emergency Use Authorization (EUA). This EUA assay is intended for In-vitro Diagnostic (IVD) use with respiratory sp ecimens such as nasopharyngeal swabs collected from individuals during the ac nisqually phase of infection. This assay is performed based on the instructions for use provided by [employer] and additional guidance provided by CDC [...] fact sheets at the following FDA website: https://www.fda.gov/medical-devices/gqxxgiahciu-qjujknn-0094-beyma-30-kxkjwtjji- pno-mwngmupkthaxkz-jfpbcho-devices/yrrzi-dlmdxwekmbf-rshu SARS-Cov-2 RNA Source FIBERLINE SUPERVISOR Swab [facility] LABORATORY Specimen (Source) Anatomical Collection Method Collection Time Re ceived Time Location / / Volume Laterality Nasopharyngeal Swab 12/11/2021 10:13 05/03/2022 AM EDT 11:16 AM EDT Comment: Symptoms->Surveillance Resulting Agency Comment Spec In Lab Iker Cuevas MD MICROBIOLOGY - GENERAL ORDER [place] Performing Organization Address City/[facility] [place] [address] POCT Glucose (12/11/2021 7:34 AM EDT) athologist Signature POC Glucose 198 65 - 199 [facility] mg/dL [facility]/[place] [address] (ABNORMAL) POCT Glucose (12/11/2021 5:07 AM EDT) P athologist Signature POC Glucose 208 (H) 65 - 199 [facility] mg/dL [facility] [...] [facility]/[place] [address] (ABNORMAL) Differential, Automated (12/11/2021 4:28 AM EDT) [facility] Method Time Signature Neutrophils % 79.6 % [facility] LABORATORY Neutr Abs (ANC) 7.01 (H) 1.70 - [facility] 6.10 [facility] x10(3)/[facility] LABORATORY Lymphocytes % 9.1 % [facility] LABORATORY Lymphocytes Abs 0.8 (L) 0.9 - 3.2 [facility] x10(3)/[facility] LABORATORY Monocytes % 9.2 % [facility] LABORATORY Monocyte Abs 0.8 0.3 - 0.9 [facility] x10(3)/[facility] LABORATORY Eosinophils % 1.3 % [facility] LABORATORY Eosinophils Abs 0.1 0.0 - 0.4 [facility] x10(3)/[facility] LABORATORY Basophils % 0.5 % [facility] LABORATORY Basophils Abs 0.0 0.0 - 0.1 [facility] x10(3)/[facility] LABORATORY Immature Gran % 0.30 [...] 0.04 x10(3)/[facility] MAR Y [facility] LABORATORY Specimen Anatomical Collection Method Collection Time Receive d Time (Source) Location / / Volume Laterality Blood 12/11/2021 4:28 AM 4:37 EDT AM EDT Resulting Agency Comment Spec In Lab Bijan Sun MD HEMATOLOGY ORDERABLES Performing Organization Address City/[facility]/[place] [address] (ABNORMAL) Hemogram (12/11/2021 4:28 AM EDT) Analysis Performed At Patho logist Time Signature WBC 8.8 4.0 - 9.5 [facility] x10(3)/[facility] LABORATORY RBC 4.15 (L) 4.58 - [facility] 5.54 [facility] x10(6)/[facility] LABORATORY Hemoglobin 11.9 (L) 13.7 - [facility] 16.5 g/dL [facility] LABORATORY Hematocrit 36.9 (L) 40.5 - [facility] 48.5 % [facility] LABORATORY MCV 88.9 82.9 - [facility] 93.1 [facility] LABORATORY MCH 28.7 27.5 - [facility] 32.1 pg [facility] LABORATORY MCHC 32.2 32.0 - [facility] 35.7 g/dL [facility] LABORATORY Platelets 211 145 - 357 [facility] x10(3)/[facility] LABORATORY RDWSD 48.3 (H) 36.0 - [facility] [facility] 45.0 [facility] LABORATORY RDWCV 14.8 (H) 11.4 - [facility] 13.8 % [facility] LABORATORY MPV 9.6 7.6 - 12.9 [facility] LABORATORY nRBC % Auto 0.0 % [facility] LABORATORY nRBC Abs Auto 0.000 0.000 - [facility] 0.000 [facility] x10(3)/[facility] LABORATORY Specimen Anatomical Collection Method Collection Time Receive d Time (Source) Location / / Volume Laterality Blood 12/11/2021 4:28 AM 2 4:37 EDT AM EDT Resulting Agency Comment Spec In Lab Bijan Sun MD HEMATOLOGY ORDERABLES Performing Organization Address City/State/[place] [address] (ABNORMAL) Prothrombin Time (12/11/2021 4:28 AM EDT) P athologist Signature PT 17.7 (H) 9.4 - 12.5 [facility] LABORATORY INR 1.6 [facility] LABORATORY Comment: An [...] Organization Address City/State/[place] [address] (ABNORMAL) BMP w/fasting Glucose (12/11/2021 4:28 AM EDT) athologist Signature Glucose 207 (H) 65 - 99 [facility] Fasting mg/dL [facility] LABORATORY Comment: ?Fasting* Glucose Interpretive [...] GFR 48 (L) >=60 mL/min/1.73 m?? [facility] [...] Address City/[facility] [place] [address] Magnesium (12/11/2021 4:28 AM EDT) P athologist Signature Magnesium 1.04 0.69 - 1.07 [facility]/L [facility] LABORATORY Specimen Anatomical Collection Method Collection Time Receive d Time (Source) Location / / Volume Laterality Blood 12/11/2021 4:28 AM 2 4:37 EDT AM EDT Resulting Agency Comment Spec In Lab Iker Cuevas MD CHEMISTRY ORDERABLES Performing Organization Address City/State/ZIP Code Phon e Number [place] [id number]OSP[address] LAB[address]ORY [address] POCT Glucose (12/11/2021 3:58 AM EDT) athologist Signature POC Glucose 189 65 - 199 [facility]BAR[facility] RYAN mg/dL [facility] [address] (ABNORMAL) POCT Glucose (12/10/2021 [...] [facility]/[place] [address] (ABNORMAL) POCT Glucose (12/10/2021 [...] City/State/[place] [address] Potassium (12/10/2021 7:46 PM EDT) athologist Signature Potassium 4.2 3.5 - 5.0 [facility] mmol/L [facility] LABORATORY Comment: Please note: ??Patients [...] [facility]/[place] [address] (ABNORMAL) Basic Metabolic Panel (non-fasting) (12/10/2021 6:12 PM EDT) athologist Signature Glucose Lvl 246 (H) 65 - 199 [facility] mg/dL [facility] [...] mmol/L [facility] LABORATORY CO2 22 22 - 31 mmol/L [facility]/[place] [address] POCT Glucose (12/10/2021 4:59 PM EDT) P athologist Signature POC Glucose 158 65 - 199 [facility] mg/dL [facility] [...] City/State/[place] [address] (ABNORMAL) POCT Glucose (12/10/2021 12:43 PM EDT) P athologist Signature POC Glucose 241 (H) 65 - 199 [facility]BAR[facility] DAVIS mg/dL [facility] [...] Address City/State/ZIP Code Phon e Number [facility] [address] EKG 12 Lead (12/10/2021 11:17 AM EDT) Component Value Ref Range Test Analysis Performed Pathologis t Method Time At Signature Ventricular rate 62 BPM MUSE SYSTEM Atrial Rate 62 BPM MUSE SYSTEM P-R Interval 142 ms MUSE SYSTEM QRS Duration 100 ms MUSE SYSTEM Q-T Interval 434 ms MUSE SYSTEM QTC Calculated 440 ms MUSE SYSTEM (Bezet) Calculated P Grant 34 degrees MUSE SYSTEM Calculated R Grant -39 degrees MUSE SYSTEM Calculated T Grant 92 degrees MUSE SYSTEM INTERPRETATION Normal sinus [...] Laterality Volume Narrative 12/10/2021 12:04 PM EDT ?[facility] ? Cardiac Cathete rization/Intervention Report ? Patient Name: Don Fatima. ? Procedure Date: 12/10/2021 ? A #: [id number] ? Primary Physician: Nobles, Vitaliy P ? Case #: [id number] ? File Name: [id number] ? Catheterization Order Number: [id number] ? [facility] ? Final Report [place], [place] ? Patient Name: ? Don E. Stewa rt ? ID#: ?[id number] ? : ?1945 ? Procedure Date: ? December 10, 2021 ? Case #: ? [id number] ? Room: ? 1 ? Case Physician: [...] was ?designated as ASA Class III. e [facility] clinical frailty scale is 5: [...] procedure was Urgent. The indication for ?the baker laboratory visit is ACS great er than [...] ?3.75 guiding catheter and a 3.5 Fr [facility] 20 Mhz using Manual ?pullback. ??Imaging was [...] ?3.75 guiding catheter and a 3.5 Fr [facility] 20 Mhz using Manual ?pullback. ??Imaging was [...] may require ?modification of this regimen. C [facility] Interventional Cardiology for ?questions. ?The 1 [...] Procedure Note Vitaliy Nobles MD - 01/14/2022 [facility] Cardiac Catheterization/Intervention Re port Patient Name: Kushal Don VedaMadiha Procedure Date: 12/10/2021 A #: [id number] Primary Physician: Vitaliy Nobles Case #: [id number] File Name: [id number] Catheterization Order Number: [id number] [facility] Final Report [place], [place] Patient Name: Don Fatima ID#: [...] e was Urgent. The indication for the baker laboratory visit is ACS greater than 24 [...] and a 3.5 Fr [facility] 20 Mhz using Manual pullback. Imaging was [...] and a 3.5 Fr [facility] [place] 20 Mhz using Manual pullback. Imaging was successful. Image quality was good. The distal LM showed moderate diffuse atherosclero tic plaque. Post Intervention: The stent was well e xpanded and apposed. Indication for Intervention: Coronary intervention was indicated for primary therapy for an acute myocardial infarction. The priority for the procedure was Urgent. The [facility] indication for the procedure was [...] POC Glucose 262 (H) 65 - 199 [facility] mg/dL [facility] [...] City/State/[place] [address] (ABNORMAL) POCT Glucose (12/10/2021 9:48 AM EDT) athologist Signature POC Glucose 279 (H) 65 - 199 [facility] mg/dL [facility] LABORATORY Comment: Supplemental ranges: <140 mg/dL before meals <180 mg/dL all other times of the day Specimen Anatomical Collection Method Collection Time Receive d Time (Source) Location / / Volume Laterality Blood 12/10/2021 9:48 AM 9:48 EDT AM EDT Iker Cuevas MD POINT OF CARE TEST ORDERABLE S Performing Organization Address City/State/[place] [address] (ABNORMAL) POCT Glucose (12/10/2021 9:07 AM EDT) P athologist Signature POC Glucose 268 (H) 65 - 199 [facility] mg/dL [facility] LABORATORY Comment: Supplemental ranges: <140 mg/dL before meals <180 mg/dL all other times of the day Specimen Anatomical Collection Method Collection Time Receive d Time (Source) Location / / Volume Laterality Blood 12/10/2021 9:07 AM 9:07 EDT AM EDT Iker Cuevas MD POINT OF CARE TEST ORDERABLE S Performing Organization Address City/State/[place] [address] (ABNORMAL) Point of Care Blood Gas Historical (12/10/2021 9:04 AM EDT) Patholo gist Method Time Signature POC pH 7.40 7.35 - [facility] 7.45 [facility] LABORATORY POC PCO2 40 35 - 45 [facility] mmHg [facility] LABORATORY POC PO2 63 (L) 85 - 104 [facility] LABORATORY POC Base Excess 0.0 -3.0 - 3.0 [facility] K mmol/L [facility] LABORATORY POC HCO3 24.8 20.0 - [facility] 26.0 [facility] mmol/[facility] LABORATORY POC Sodium 143 135 - 145 [facility] mmol/L [facility] LABORATORY POC Potassium 3.7 3.5 - 5.0 [facility] mmol/L [facility] LABORATORY POC Ionized Ca 1.07 (L) 1.15 - [facility] 1.33 [facility] mmol/L HOSPITAL LABORATORY POC Hematocrit 30.0 (L) 40.0 - [facility] 51.0 % [facility] LABORATORY POC Calc Hgb 10.2 (L) 13.7 - [facility] 17.5 g/dL [facility] LABORATORY Comment: The calculation of [...] [facility]/[place] [address] (ABNORMAL) POCT Glucose (12/10/2021 7:19 AM EDT) athologist Signature POC Glucose 274 (H) 65 - 199 [facility] mg/dL [facility] [...] [facility]/[place] [address] Heparin (unfractionated) Level (12/10/2021 4:25 AM EDT) athologist Signature Heparin UFH 0.69 IU/mL [facility] [...] Address City/State/ZIP Code Phon e Number [address] (ABNORMAL) Differential, Automated (12/10/2021 4:25 AM EDT) [facility] Method Time Signature Neutrophils % 79.8 % [facility] LABORATORY Neutr Abs (ANC) 7.47 (H) 1.70 - [facility] 6.10 [facility] x10(3)/[facility] LABORATORY Lymphocytes % 10.6 % [facility] LABORATORY Lymphocytes Abs 1.0 0.9 - 3.2 [facility] x10(3)/[facility] LABORATORY Monocytes % 8.4 % [facility] LABORATORY Monocyte Abs 0.8 0.3 - 0.9 [facility] x10(3)/[facility] LABORATORY Eosinophils % 0.6 % [facility] LABORATORY Eosinophils Abs 0.1 0.0 - 0.4 [facility] x10(3)/[facility] LABORATORY Basophils % 0.2 % [facility] LABORATORY Basophils Abs 0.0 0.0 - 0.1 [facility] x10(3)/[facility] LABORATORY Immature Gran % 0.40 [...] 0.04 0.00 - 0.04 x10(3)/[facility] LABORATORY Specimen Anatomical Collection Method Collection Time Receive d Time (Source) Location / / Volume Laterality Blood 12/10/2021 4:25 AM 4:34 EDT AM EDT Resulting Agency Comment Spec In Lab Morgan BROWN HEMATOLOGY ORDERABLES Performing Organization Address City/[facility]/ZIP Code Phon e Number [address] (ABNORMAL) Hemogram (12/10/2021 4:25 AM EDT) Analysis Performed At Patho logist Time Signature WBC 9.4 4.0 - 9.5 [facility] x10(3)/[facility] LABORATORY RBC 3.81 (L) 4.58 - [facility] 5.54 [facility] x10(6)/[facility] LABORATORY Hemoglobin 11.1 (L) 13.7 - [facility] 16.5 g/dL [facility] LABORATORY Hematocrit 34.0 (L) 40.5 - [facility] 48.5 % [facility] LABORATORY MCV 89.2 82.9 - [facility] 93.1 [facility] LABORATORY MCH 29.1 27.5 - [facility] 32.1 pg [facility] LABORATORY MCHC 32.6 32.0 - [facility] 35.7 g/dL [facility] LABORATORY Platelets 183 145 - 357 [facility] x10(3)/[facility] LABORATORY RDWSD 49.9 (H) 36.0 - [facility] 45.0 [facility] LABORATORY RDWCV 15.2 (H) 11.4 - [facility] 13.8 % [facility] LABORATORY MPV 9.8 7.6 - 12.9 [facility] LABORATORY nRBC % Auto 0.0 % [facility] LABORATORY nRBC Abs Auto 0.000 0.000 - [facility] 0.000 [facility] x10(3)/[facility] LABORATORY Specimen Anatomical Collection Method Collection Time Receive d Time (Source) Location / / Volume Laterality Blood 12/10/2021 4:25 AM 2 4:34 EDT AM EDT Resulting Agency Comment Spec In Lab Morgan BROWN HEMATOLOGY ORDERABLES Performing Organization Address City/State/[place] [address] (ABNORMAL) Prothrombin Time (12/10/2021 4:25 AM EDT) P athologist Signature PT 20.0 (H) 9.4 - 12.5 [facility] LABORATORY INR 1.7 [facility] LABORATORY Comment: An [...] City/State/ZIP Code Phon e Number [place] [id number] HOSPITAL LAB[address]ORY Drive (ABNORMAL) BMP w/fasting Glucose (12/10/2021 4:25 AM EDT) athologist Signature Glucose 210 (H) 65 - 99 [facility] Fasting mg/dL [facility] LABORATORY Comment: ?Fasting* Glucose Interpretive [...] GFR 44 (L) >=60 mL/min/1.73 m?? [facility] [...] City/State/[place] [address] Magnesium (12/10/2021 4:25 AM EDT) P athologist Signature Magnesium 0.95 0.69 - 1.07 [facility]/L [facility] LABORATORY Specimen Anatomical Collection Method Collection Time Receive d Time (Source) Location / / Volume Laterality Blood 12/10/2021 4:25 AM 2 4:34 EDT AM EDT Resulting Agency Comment Spec In Lab Iker Cuevas MD CHEMISTRY ORDERABLES Performing Organization Address City/[facility]/[place] [address] POCT Glucose (12/10/2021 1:58 AM EDT) athologist Signature POC Glucose 164 65 - 199 [facility]/[place] [address] (ABNORMAL) POCT Glucose (12/09/2021 9:02 PM EDT) athologist Signature POC Glucose 313 (H) 65 - 199 [facility] mg/dL [facility] [...] [facility]/[place] [address] Heparin (unfractionated) Level (12/09/2021 7:30 PM EDT) athologist Signature Heparin UFH 0.48 IU/mL [facility] LABORATORY Comment: Heparin [...] City/State/[place] [address] (ABNORMAL) Basic Metabolic Panel (non-fasting) (12/09/2021 7:30 PM EDT) athologist Signature Glucose Lvl 372 (H) 65 - 199 [facility] mg/dL [facility] [...] mmol/L [facility] LABORATORY CO2 22 22 - 31 mmol/L [facility] LABORATORY Anion Gap 14 5 - 15 mmol/L [facility] LABORATORY Calcium 8.1 (L) 8.5 - 10.5 mg/dL [facility] LABORATORY Estimated GFR 37 (L) >=60 mL/min/1.73 m?? [facility] [...] Organization Address City/State/[place] [address] (ABNORMAL) POCT Glucose (12/09/2021 6:34 PM EDT) P athologist Signature POC Glucose 408 (H) 65 - 199 [facility]/dL [facility]/[place] [address] (ABNORMAL) POCT Glucose (12/09/2021 6:32 PM EDT) P athologist Signature POC Glucose 356 (H) 65 - 199 [facility] mg/dL [facility] [...] Organization Address City/State/[place] [address] (ABNORMAL) POCT Glucose (12/09/2021 4:19 PM EDT) athologist Signature POC Glucose 347 (H) 65 - 199 [facility] mg/dL [facility] [...] [facility]/[place] [address] Heparin (unfractionated) Level (12/09/2021 1:29 PM EDT) athologist Signature Heparin UFH 0.42 IU/mL [facility] LABORATORY Comment: Heparin [...] Organization Address City/State/[place] [address] (ABNORMAL) POCT Glucose (12/09/2021 12:02 PM EDT) P athologist Signature POC Glucose 235 (H) 65 - 199 [facility]/dL [facility]/[place] [address] (ABNORMAL) POCT Glucose (12/09/2021 9:44 AM EDT) P athologist Signature POC Glucose 214 (H) 65 - 199 [facility] mg/dL [facility] [...] [facility]/[place] [address] EKG 12 Lead (12/09/2021 7:57 AM EDT) Component Value Ref Range Test Analysis Performed Pathologis t Method Time At Signature Ventricular rate 101 BPM MUSE SYSTEM Atrial Rate 101 BPM MUSE SYSTEM P-R Interval 150 ms MUSE SYSTEM QRS Duration 112 ms MUSE SYSTEM Q-T Interval 364 ms MUSE SYSTEM QTC Calculated 471 ms MUSE SYSTEM (Bezet) Calculated P Grant 59 degrees MUSE SYSTEM Calculated R Grant -42 degrees MUSE SYSTEM Calculated T Grant 102 degrees MUSE SYSTEM INTERPRETATION Sinus tachycardia Occasional Premature ventricular com plexes MUSE SYSTEM Left axis deviation 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) Abnormal ECG When compared with ECG of 08-DEC-2021 16:40, Premature ventricular complexes are now Present Confirmed by MD Fernandez Danette ([id number]) on 12/10/2021 4:55:06 PM Specimen Anatomical Collection Method Collection Time Receive d Time (Source) Location / / Volume Laterality 12/09/2021 7:57 AM 2 4:55 EDT PM EDT Iker Cuevas MD ECG ORDERABLES Performing Organization Address City/State/ZIP Code Phon e Number MUSE SYSTEM (ABNORMAL) POCT Glucose (12/09/2021 7:28 AM EDT) P athologist Signature POC Glucose 263 (H) 65 - 199 [facility] mg/dL [facility] [...] Organization Address City/State/[place] [address] (ABNORMAL) Hemoglobin A1c (12/09/2021 [...] Mellitus, Diabetes Care 2013; 36: Suppl. 1, N28-16 Est Avg Gluc See note mg/dL WHITE [...] with hemoglobinopathies. Additional resources are available on [facility] ADA website. Macario HAMMOND, Ruthann J, Deysi R, et al. ??Tr anslating the A1C assay into estimated average glucose values. ??Diabetes Care 2008:31(8):9193-8577. Specimen Anatomical Collection Method Collection Time Receive d Time (Source) Location / / Volume Laterality Blood Venous Draw / 12/09/2021 6:18 AM 12/10/19 22 Unknown EDT 12:24 PM EDT Resulting Agency Comment Spec In Lab Migdalia BROWN CHEMISTRY ORDERABLES Performing Organization Address City/State/[place] [address] (ABNORMAL) Prothrombin Time (12/09/2021 6:18 AM EDT) athologist Signature PT 26.6 (H) 9.4 - 12.5 [facility] LABORATORY INR 2.3 [facility] LABORATORY Comment: An [...] Migdalia BROWN HEMATOLOGY ORDERABLES Performing Organization Address City/[facility]/ZIP Code Phon e Number [address] Heparin (unfractionated) Level (12/09/2021 6:18 AM EDT) P athologist Signature Heparin UFH 0.24 IU/mL [facility] LABORATORY Comment: Heparin [...] [facility]/[place] [address] (ABNORMAL) Differential, Automated (12/09/2021 6:18 AM EDT) Patholo gist Method Time Signature Neutrophils % 91.5 % [facility] LABORATORY Neutr Abs (ANC) 15.78 (H) 1.70 - [facility] 6.10 [facility] x10(3)/[facility] LABORATORY Lymphocytes % 2.9 % [facility] LABORATORY Lymphocytes Abs 0.5 (L) 0.9 - 3.2 [facility] x10(3)/[facility] LABORATORY Monocytes % 4.9 % [facility] LABORATORY Monocyte Abs 0.8 0.3 - 0.9 [facility] x10(3)/[facility] LABORATORY Eosinophils % 0.0 % [facility] LABORATORY Eosinophils Abs 0.0 0.0 - 0.4 [facility] x10(3)/[facility] LABORATORY Basophils % 0.2 % [facility] LABORATORY Basophils Abs 0.0 0.0 - 0.1 [facility] x10(3)/[facility] LABORATORY Immature Gran % 0.50 [...] Abs 0.09 (H) 0.00 - 0.04 x10(3)/[facility] LABORATORY Specimen Anatomical Collection Method Collection Time Receive d Time (Source) Location / / Volume Laterality Blood 12/09/2021 6:18 AM 2 6:33 EDT AM EDT Resulting Agency Comment Spec In Lab Morgan BROWN HEMATOLOGY ORDERABLES Performing Organization Address City/State/[place] [address] (ABNORMAL) Hemogram (12/09/2021 6:18 AM EDT) Analysis Performed At Patho logist Time Signature WBC 17.2 (H) 4.0 - 9.5 [facility] x10(3)/[facility] LABORATORY RBC 4.32 (L) 4.58 - [facility] 5.54 [facility] x10(6)/[facility] LABORATORY Hemoglobin 12.6 (L) 13.7 - [facility] 16.5 g/dL [facility] LABORATORY Hematocrit 38.9 (L) 40.5 - [facility] 48.5 % [facility] LABORATORY MCV 90.0 82.9 - [facility] 93.1 [facility] LABORATORY MCH 29.2 27.5 - [facility] 32.1 pg [facility] LABORATORY MCHC 32.4 32.0 - [facility] 35.7 g/dL [facility] LABORATORY Platelets 193 145 - 357 [facility] x10(3)/[facility] LABORATORY RDWSD 50.4 (H) 36.0 - [facility] 45.0 [facility] LABORATORY RDWCV 15.2 (H) 11.4 - [facility] 13.8 % [facility] LABORATORY MPV 9.5 7.6 - 12.9 [facility] LABORATORY nRBC % Auto 0.0 % [facility] LABORATORY nRBC Abs Auto 0.000 0.000 - [facility] 0.000 [facility] x10(3)/[facility] LABORATORY Specimen Anatomical Collection Method Collection Time Receive d Time (Source) Location / / Volume Laterality Blood 12/09/2021 6:18 AM 6:33 EDT AM EDT Resulting Agency Comment Spec In Lab Morgan BROWN HEMATOLOGY ORDERABLES Performing Organization Address City/State/[place] [address] Lipid Panel (Reflex Direct LDL) (12/09/2021 6:18 AM EDT) P athologist Signature Chol, Total 105 mg/dL [facility] LABORATORY Comment: Lower Risk: <200 mg/dL Average Risk: 200-239 mg/dL Higher Risk: >rw=449 mg/dL Triglycerides 133 mg/dL [facility] LABORATORY Comment: Average Risk/Lower Risk: <150 mg/dL Borderline High Risk: 150-199 mg/dL High Risk: 200-499 mg/dL Very High Risk: >cz=826 mg/dL HDL 42 mg/dL [facility] LABORATORY Comment: Males: ?? Higher Risk: <40 mg/dL Females: ?? Higher Risk: <50 mg/dL LDL Cholesterol 36 mg/dL [facility] LABORATORY Comment: Lowest Risk: <100 mg/dL Lower Risk: 100-129 mg/dL Borderline High Risk: 130-159 mg/dL High Risk: 160-189 mg/dL Very High Risk: >dy=474 mg/dL Chol/HDL Ratio 2.5 ratio [facility] LABORATORY Lipid Interpretation See Note [facility] LABORATORY Comment: Lipid management should be guided by a p atient? s ASCVD risk, goals and preferences. ACC/AHA Guidelines recommend high intens ity statin if clinical ASCVD or LDL greater than or equal to 190 mg/dL. [email or web address] Adults aged 40-75 with LDL 70-189 mg/dL should have their 10 year ASCVD risk estimated with the ACC/AHA ASCVD risk es timator http://tools.acc.org/FTCTS-Ogxz-Xjdtuqmb r/ Statin should be discussed if risk [...] City/State/[place] [address] TSH (12/09/2021 6:18 AM EDT) athologist Signature TSH 1.60 0.27 - 4.20 [facility] mcIU/mL [facility] LABORATORY Comment: Reference Interval (mcIU/mL): [...] [facility]/[place] [address] Hepatic Function Panel (12/09/2021 6:18 AM EDT) athologist Signature Total Protein 7.3 6.1 - 8.0 [facility] g/dL [facility] LABORATORY Albumin 4.2 3.2 - 5.2 [facility] RYAN g/dL [facility] LABOR[facility] AST 25 0 - 39 [facility] R[facility] unit/L [facility] ALT 15 0 - 55 [facility] [facility] unit/L [facility]ORY Alk Phos 75 40 - 130 [place] [facility] unit/L [facility] LABORATORY Total 1.1 0.2 - 1.3 [facility] Bilirubin mg/dL [facility] LABORATORY Bili, Direct 0.2 0.0 - 0.3 [place] [facility] mg/dL [facility] LABORATORY Specimen Anatomical Collection Method Collection Time Receive d Time (Source) Location / / Volume Laterality Blood 12/09/2021 6:18 AM 2 6:33 EDT AM EDT Resulting Agency Comment Spec In Lab Iker Cuevas MD CHEMISTRY ORDERABLES Performing Organization Address City/[facility] [place] [address] (ABNORMAL) BMP w/fasting Glucose (12/09/2021 6:18 AM EDT) P athologist Signature Glucose 235 (H) 65 - 99 [place] Fasting mg/dL [facility] LABORATORY Comment: ?Fasting* Glucose Interpretive [...] GFR 52 (L) >=60 mL/min/1.73 m?? [facility] [...] Address City/State/ZIP Code Phon e Number [address] Magnesium (12/09/2021 6:18 AM EDT) P athologist Signature Magnesium 0.81 0.69 - 1.07 [facility] mmol/L [facility] LABORATORY Specimen Anatomical Collection Method Collection Time Receive d Time (Source) Location / / Volume Laterality Blood 12/09/2021 6:18 AM 2 6:33 EDT AM EDT Resulting Agency Comment Spec In Lab Iker Cuevas MD CHEMISTRY ORDERABLES Performing Organization Address City/State/[place] [address] (ABNORMAL) Troponin (12/09/2021 6:18 AM EDT) athologist Signature Troponin-T 1.13 (H) 0.00 - [place] 0.00 ng/mL [facility] LABORATORY Comment: The 99th percentile [...] additional sample may be indicated. Reference: Third Imperial Definition of Myocardial Infarction. Journal of the [place] College [employer] 2012;60:1581-98 Specimen Anatomical Collection Method Collection Time Receive d Time (Source) Location / / Volume Laterality Blood 12/09/2021 6:18 AM 6:33 EDT AM EDT Resulting Agency Comment Spec In Lab Iker Cuevas MD CHEMISTRY ORDERABLES Performing Organization Address City/State/ZIP Code Phon e Number [place] [phone] XR Chest One View [...] have questions please contact the health care tech that requested your imaging first. ? Narrative [...] have questions please contact the health care tech that requested your imaging first. Amber Sanches MD IMG DX ORDERABLES (ABNORMAL) BLOOD GAS 2 ARTERIAL (12/09/2021 5:14 AM EDT) Analysis Performed At Path logis Time Signature pH Art 7.43 7.35 - [facility] 7.45 [facility] LABORATORY pCO2 Art 36 35 - 45 [facility] LABORATORY pO2 Art 67 (L) 85 - 104 [facility] LABORATORY HCO3 Art 23.4 20.0 - [facility] 26.0 [facility] mmol/L [facility] LABORATORY BE Art -0.9 -3.0 - 3.0 [facility] mmol/L [facility] LABORATORY Hgb Blood Gas 13.2 (L) 13.7 - [facility] 16.5 g/dL [facility] LABORATORY O2HB Art 91.3 (L) 94.0 - [facility] 97.0 % [facility] LABORATORY COHB Art 0.4 % [...] [facility] FIO2 Art 35 % [facility] LABORATORY Flow Art 8.0 LPM [facility] LABORATORY PF Ratio Art 191 [facility] LABORATORY Specimen Anatomical Collection Method Collection Time Receive d Time (Source) Location / / Volume Laterality Blood 12/09/2021 5:14 AM 5:14 EDT AM EDT Iker Cuevas MD CHEMISTRY ORDERABLES Performing Organization Address City/State/[place] [address] POCT Glucose (12/09/2021 4:46 AM EDT) athologist Signature POC Glucose 198 65 - 199 [facility] mg/dL [facility] [...] Organization Address City/State/[place] [address] (ABNORMAL) POCT Glucose (12/09/2021 3:01 AM EDT) athologist Signature POC Glucose 225 (H) 65 - 199 [facility] mg/dL [facility] [...] Organization Address City/State/[place] [address] (ABNORMAL) POCT Glucose (12/08/2021 10:55 PM EDT) athologist Signature POC Glucose 327 (H) 65 - 199 [facility] [place] mg/dL [facility] [...] Organization Address City/State/[place] [address] Heparin (unfractionated) Level (12/08/2021 10:03 PM EDT) P athologist Signature Heparin UFH 0.18 IU/mL [facility] LABORATORY Comment: Heparin [...] City/State/[place] [address] (ABNORMAL) Troponin (12/08/2021 10:03 PM EDT) athologist Signature Troponin-T 0.92 (H) 0.00 - [facility] 0.00 ng/mL [facility] LABORATORY Comment: The 99th percentile [...] additional sample may be indicated. Reference: Third Imperial Definition of Myocardial Infarction. Journal of the [place] College of Cardiology 2012;60:1581-98 Specimen Anatomical Collection Method Collection Time Receive d Time (Source) Location / / Volume Laterality Blood 12/08/2021 10:03 12/08/2021 PM EDT 10:31 PM EDT Resulting Agency Comment Spec In Lab Iker Cuevas MD CHEMISTRY ORDERABLES Performing Organization Address City/[facility]/[place] [address] (ABNORMAL) POCT Glucose (12/08/2021 8:22 PM EDT) athologist Signature POC Glucose 429 (H) 65 - 199 [facility]AN mg/dL [facility] [address] (ABNORMAL) POCT Glucose (12/08/2021 [...] [facility]/[place] [address] Magnesium (12/08/2021 6:02 PM EDT) athologist Signature Magnesium 0.86 0.69 - 1.07 [facility] mmol/L [facility] LABORATORY Specimen Anatomical Collection Method Collection Time Receive d Time (Source) Location / / Volume Laterality Blood 12/08/2021 6:02 PM 6:36 EDT PM EDT Resulting Agency Comment Spec In Lab Iker Cuevas MD CHEMISTRY ORDERABLES Performing Organization Address City/State/ZIP Code Phon e Number [address] (ABNORMAL) Basic Metabolic Panel (non-fasting) (12/08/2021 6:02 PM EDT) athologist Signature Glucose Lvl 392 (H) 65 - 199 [facility] mg/dL [facility] [...] mmol/L [facility] CO2 20 (L) 22 - 31 mmol/L [facility] [...] Organization Address City/State/[place] [address] (ABNORMAL) Differential, Automated (12/08/2021 6:02 PM EDT) [facility] gist Method Time Signature Neutrophils % 89.5 % [facility] LABORATORY Neutr Abs (ANC) 13.97 (H) 1.70 - [facility] 6.10 [facility] x10(3)/[facility] LABORATORY Lymphocytes % 3.7 % [facility] LABORATORY Lymphocytes Abs 0.6 (L) 0.9 - 3.2 [facility] x10(3)/[facility] LABORATORY Monocytes % 6.1 % [facility] LABOR[facility] Monocyte Abs 1.0 (H) 0.3 - 0.9 [facility] x10(3)/[facility] LABORATORY Eosinophils % 0.0 % [facility] LABOR[facility] Eosinophils Abs 0.0 0.0 - 0.4 [facility] x10(3)/[facility] LABORATORY Basophils % 0.2 % [facility] LABORATORY Basophils Abs 0.0 0.0 - 0.1 [facility] x10(3)/[facility] LABORATORY Immature Gran % 0.50 [...] City/State/[place] [address] (ABNORMAL) Hemogram (12/08/2021 6:02 PM EDT) Analysis Performed At Patho logist Time Signature WBC 15.6 (H) 4.0 - 9.5 [facility] x[facility](3[facility] LABORATORY RBC 4.05 (L) 4.58 - [facility] RYAN 5.54 [facility] x10(6)/[facility] LABORATORY Hemoglobin 11.8 (L) 13.7 - [facility] 16.5 g/dL [facility] LABORATORY Hematocrit 35.8 (L) 40.5 - [facility] 48.5 % [facility] LABORATORY MCV 88.4 82.9 [facility]1 [facility] LABORATORY MCH 29.1 27.5 - [facility] RYAN 32.1 pg [facility] LABORATORY MCHC 33.0 32.0 - [facility] 35.7 g/dL [facility] LABORATORY Platelets 178 145 - 357 [facility] x10(3)/[facility] LABORATORY RDWSD 49.3 (H) 36.0 - [facility] RYAN 45.0 [facility] LABORATORY RDWCV 15.1 (H) 11.4 - [facility] RYAN 13.8 % [facility] LABORATORY MPV 10.4 7.6 - 12.9 [facility] LABORATORY nRBC % Auto 0.0 % [facility] LABORATORY nRBC Abs Auto 0.000 0.000 - [place] 0.000 [facility] x10(3)/[facility] LABORATORY Specimen Anatomical Collection Method Collection Time Receive d Time (Source) Location / / Volume Laterality Blood 12/08/2021 6:02 PM 2 6:36 EDT PM EDT Resulting Agency Comment Spec In Lab Morgan BROWN HEMATOLOGY ORDERABLES Performing Organization Address City/State/ZIP Code [place] [address] (ABNORMAL) Troponin (12/08/2021 6:02 PM EDT) athologist Signature Troponin-T 0.89 (H) 0.00 - [place] [facility] 0.00 ng/mL [facility] LABORATORY Comment: The 99th percentile [...] additional sample may be indicated. Reference: Third Imperial Definition of Myocardial Infarction. Journal of the [place] College of Cardiology 2012;60:1581-98 Specimen Anatomical Collection Method Collection Time Receive d Time (Source) Location / / Volume Laterality Blood 12/08/2021 6:02 PM 2 6:36 EDT PM EDT Resulting Agency Comment Spec In Lab Iker Cuevas MD CHEMISTRY ORDERABLES Performing Organization Address City/State/ZIP Code [place] [address] COVID-19 PCR (12/08/2021 5:00 PM EDT) [facility] Method Time Signature SARS-CoV-2 Not Detected Not Detected [facility] RNA PCR [facility] LABORATORY Comment: This result should be [...] using the Simplexa COVID-19 Direct Assay by Motwinjoi marcum as authorized by the FDA issued [...] of Pathology and Laboratory Medicine at [facility], certified under the Clinical Laboratory [...] clinical management guidance information are available at [facility] Coronavirus Disease 2019 (COVID-19) webpage under Information fo r Healthcare Professionals (https://www.cdc.gov/coronavirus/2019-nc ov/hcp/index.html). Additional information about this and ot her EUA tests can be found in provider and patient fact sheets at the following FDA website: https://www.fda.gov/medical-devices/kmnegouyoga-thlqmut-3398-dqkun-00-wsglstjtr- ipi-jqdqxkccttumly-scskwtc-devices/ytapk-guzuqzlcqzf-ikju SARS-CoV-2 Source [employer] [facility] LABORATORY Specimen (Source) Anatomical Collection Method Collection Time Re ceived Time Location / / Volume Laterality Nasopharyngeal Swab 12/08/2021 5:00 12/08 PM EDT 6:03 PM EDT Comment: Symptoms->Surveillance Resulting Agency Comment Spec In Lab Iker Cuevas MD MICROBIOLOGY - GENERAL ORDER ROBSON Performing Organization Address City/[facility] Phon e Number [place] [id number]OS[address] EKG 12 Lead (12/08/2021 4:40 PM EDT) Component Value Ref Range Test Analysis Performed Pathologis t Method Time At Signature Ventricular rate 78 BPM MUSE SYSTEM Atrial Rate 78 BPM MUSE SYSTEM P-R Interval 152 ms MUSE SYSTEM QRS Duration 96 ms MUSE SYSTEM Q-T Interval 396 ms MUSE SYSTEM QTC Calculated 451 ms MUSE SYSTEM (Bezet) Calculated P Grant 44 degrees MUSE SYSTEM Calculated R Grant -31 degrees MUSE SYSTEM Calculated T Grant 124 degrees MUSE SYSTEM INTERPRETATION Normal sinus [...] Address City/[facility] Phon e Number MUSE SYSTEM (ABNORMAL) POCT Glucose (12/08/2021 4:34 PM EDT) P athologist Signature POC Glucose 400 (H) 65 - 199 [facility] mg/dL [facility] LABORATORY Comment: Supplemental ranges: <140 mg/dL before meals <180 mg/dL all other times of the day Specimen Anatomical Collection Method Collection Time Receive d Time (Source) Location / / Volume Laterality Blood 12/08/2021 4:34 PM 4:34 EDT PM EDT Iker Cuevsa MD POINT OF CARE TEST ORDERABLE S Performing Organization Address City/State/ZIP Code Phon [place] [facility] [place] [address] documented in this encounter [...] atherosclerosis of unspecified type of vessel, [place] or graft Cardiomyopathy, ischemic Other specified forms [...] on Wed12/10/21 at 2100, Until Discontinued, Anticoagulant, Routine, Restricted anticoagulant, choose the most appropriate response: Approved indication of non-valvular atrial fibrillation Given 12/11/2021 8:41 PM EDT 5 mg [...] 5 mg 2036 (Given - Provider: Barbara Boogie, VAMSI) 0835 (Given - Provider: Emma Garcia RN)2040 [...] - Provider: Admin Adt)1358 (Given - Provider: Emmaleila Garcia RN) insulin lispro (HumaLOG;Admelog) (100 un [...] Emma Garcia RN)2042 (Given - Provider: Derrick Galeas, VAMSI) 0000 (Not Given - Provider: Derrick Galeas [...] solution 1 mg( Linked Group 2) 08 ([facility] Hold - Provider: Admin Adt - Reason: Transfer to a Procedural area)1230 ([facility] Unhold - Provider: Admin Adt) 1 mg, [...] glucose (Glutose) 40% oral geL(Linked Group 2) 08 ([facility] Hold - Provider: Admin Adt - Reason: Transfer to a Procedural area)1230 ([facility] Unhold - Provider: Admin Adt) 15-30 g [...] area)1230 ([facility] Unhold - Provider: Admin Adt) 0844 (Given [...] (Intra-Procedure), Routine niCARdipine (Cardene) (100 mcg/mL) dilution (WOOD CAULKER) (CANCELED) 1030 (Given - Provider: Vitaliy Nobles [...] to a Procedural area)1230 ([facility] Unhold - Provider: Admin Adt) 1 tablet, Oral, 2 TIMES DAILY PRN, Start ing on Wed12/09/21 at 1628, Until Wed12/12/21 at 1312, Constipation, Routine sodium chloride 0.9 % (flush) (BD PosiFlush Normal Sean ine 0.9) flush 5-20 mL 08 ([facility] Hold - Provider: Admin Adt - Reason: Transfer to a Procedural area)1230 ([facility] Unhold - Provider: Admin Adt) 5-20 mL, [...] episode. & nbsp; For persistent hypoglycemia, con claims vice president longer-acting treatment for the duration of the [...]
Routine documented in this encounter Care Teams Lineworker Relationship Specialty Start Date End Date Lovely Vicente MD PCP - General 04/16/[address] [place] [address] [address] [place] [address] documented as of this encounter
--- OUTSIDE RECORDS SUMMARY | 2022-04-29 08:10 | XMS_ITS | Encounter Summary ---
:1945 Author Organization [facility] [place] [address] Care Team Providers Name Role Phone Lovely Vicente MD Primary Care Provider Reason for Visit Auth/Cert Specialty Diagnoses / Procedures Referred By Contact Refer red To Contact Diagnoses NSTEMI Procedures emerg ipi Referral ID Status Reason Start Date Expiration Date Visits Requ ested Visits Authorized [id number] 1 1 Encounter Details Date Type Department Care Team Description 12/10/[address] Roller Operator Hot Mix Asa Coulter MD CARDIAC CATHETERIZATION [facility] [place] [address] [place] [address] [phone] (Wo rk) Social History Tobacco Use Types [...] Don Fatima Patient Age: 76 y.o. Language: Cypriot Race: White Ethnicity: Not nor Admit date: [...] Peter PA-C Kelly LaFlamme PA-C Cardiovascular Medicine [phone] Discharge Diagnoses (Hospital Problems) and Secondary Diagnoses [...] 3.75 guiding catheter and a 3.5 Fr [place] 20 Mhz using Manual pullback. Imaging was successful. Image quality was good. The ostial LCX showed moderate diffuse atherosclerotic plaque with scattered three quadrant calcification. Measurements were performed after pre-dilation. Post Intervention: The stent was well expanded and apposed. Intravascular Ultrasound was performed in the distal LM using a 7 Fr EBU 3.75 guiding catheter and a 3.5 Fr [place] 20 Mhz using Manual pullback. Imaging was successful. Image quality was good. The distal LM showed moderate diffuse atherosclerotic plaque. Post Intervention: The stent was well expanded and apposed. Indication for Intervention: Coronary intervention was indicated for primary therapy for an acute myocardial infarction. The priority for the procedure was Urgent. The [facility] indication for the procedure was [...] appointments: During 8am-5pm Wednesday through Wednesday call [phone] to speak with a nurse in the cardiology clinic All other times call [phone] and ask to speak to the guest service supervisor prison teacher. Return to work: One week Driving: No driving for 48 hours after catheterization. Follow up Appointments: PCP Lovely Vicente MD [phone] to see patient at the end of December for annual check up. Patient to see Dr. Lorenzana at 1120 am at December 19 for a post hospital check up. Sulfide Head Operator Dr. De Oliveira to see you in [facility]. Left a message for office to set a date and time. Please call [phone] Nobles to see the patient for a same day cath in 2-3 weeks from now. Office to call with a date and time. For questions please call [phone] Home oxygen therapy: N/A Arrangements for VNA/home care: none Future Appointments and Orders Future Orders Complete By Expires Basic Metabolic Panel (non-fasting) [LAB15 Custom] 12/19/2021 (Approximate) 12/12/2022 Process Instructions: INCLUDES: Calcium, BUN, Creat, GFR, Glucose, Lytes Scheduling Instructions: Comments: Questions: Referral to Cardiac Rehab [[id number] Custom] As directed Process Instructions: If no [...] appointments: During 8am-5pm Wednesday through Wednesday call [phone] to speak with a nurse in the cardiology clinic All other times call [phone] and ask to speak to the guest service supervisor prison teacher. Return to work: One week Driving: No driving for 48 hours after catheterization. Follow up Appointments: PCP Lovely Vicente MD [phone] to see patient at the end of December for annual check up. Patient to see Dr. Lorenzana at 1120 am at December 19 for a post hospital check up. Sulfide Head Operator Dr. De Oliveira to see you in [facility]. Left a message for office to set a date and time. Please call [phone] Nobles to see the patient for a same day cath in 2-3 weeks from now. Office to call with a date and time. 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 Tolerated procedure well. 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 Tolerated procedure well. Review of Systems: [...] Intake/Output Summary (Last 24 hours) at 12/11/2021 0928 Last data filed at 12/11/2021 0508 Gross [...] and answered his questions. Iker Cuevas MD [facility] Total time spent on review of records prior to visit, face to face time with patient during visit, documentation, and coordination of care with other clinicians: 25 minutes. . Iker Cuevas MD - 12/10/2021 12:30 PM EDT Images from the original note were not included. 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 Tolerated procedure well. Review of Systems: [...] Discussed with MD Migdalia Peter PA-C Pager #[phone] 12/10/2021 Cardiology Attending Note I have seen [...] updated and given pictures. Iker Cuevas MD [facility] Total time spent on review of records prior to visit, face to face time with patient during visit, documentation, and coordination of care with other clinicians: 35 minutes. Iker Cuevas MD - 12/09/2021 7:28 AM EDT Images from the original note were not included. Inpatient Cardiology Progress Note Patient Name: Don Fatima Service: HIP HOP DANCER / PA Responsible Attending: Iker Cuevas MD [...] resolved problems to display. Interval History: Don Faitma was admitted 12/08 for NSTEMI and ADHF [...] Discussed with MD Migdalia Peter PA-C Pager #[phone] 12/09/2021 Cardiology Attending Note I have seen [...] < 70 -CPAP tonight Iker Taverass MD [facility] Total time spent on review [...] with MD Morgan Peter PA-C APP2 pager [phone] 12/08/2021 Cardiology Attending Note I have seen [...] is type 1 due to graft or [place] coronary stenosis vs acute injury from CHF. 3. PAF: currrently in NSR. Have replaced warfarin with heparin 4. PAD: stable 5. DM: stable 6. CKD: will monitor and minimize contrast. Pt very appreciative of Dr. Yuan Retana's care in 2018. Will let him know patient is here. Iker Cuevas MD [facility] documented in this encounter Miscellaneous [...] Type: *No Product type* / Secondary Insurance: [employer] [place] Prescription Coverage: Yes This plan was formulated with input from patient and team. All are in agreement with plan. Consult Note - Octavia Vaguhn RN - 12/11/2021 8:01 AM EDT Don [...] cath without complications. Migdalia Parker PA-C Pager #[phone] 12/10/2021 Initial Assessments - Nick Georges RN [...] COVID test: Lab Results Component Value Date [id number] Not Detected 12/08/2021 Past medical History: Past [...] [facility] [place] must abide by [place] law. The hierarchy [...] - standard, cane - straight Home Address: [address] [place] [address] [place] [address] Social & Family Supports: All names listed below confirmed with patient as current and correct Extended Emergency Contact Information Primary Emergency Contact: Kisha Fatima Address: [address] [place] [address] [place] [address] [facility] Mobile Relation: Spouse Secondary Emergency Contact: Elba Swenson Address: [place] [place], [place] [address] [place] [address] Mobile Relation: Child Current Care Provided by: [...] Type: *No Product type* / Secondary Insurance: [facility] Prescription Coverage: Yes Preferred Pharmacy: [facility] Home Delivery [facility] [address] [address] - [place], [place] - [address] [address] [place] Status: Patient is a : unable to assess Primary Care Provider: Lovely Vicente MD [phone] Patient/Caregiver Goals of Treatment: Get out of here Potential Needs for Transition of Care: none Agency Referrals: none patient has used [facility] in the past Transportation: no concerns Transportation Anticipated: family or friend will provide Concerns to be Addressed: patient refuses services, discharge planning Assessment: Patient is admitted to [facility] Service pager [phone] for 76 y.o.??male??with h/o??CAD s/p 3vCABG (THOMPSON-LAD, [...] status on current unit. Nick Georges RN casting inspector, Office of Care Management Pager: [phone] Brief Op Note - Vitaliy Nobles MD - 12/10/2021 8:31 AM EDT Images from the original note were not included. Former[facility] [place] [address] CORONARY ANGIOGRAM AND PERCUTANEOUS CORONARY INTERVENTION REPORT Patient: Don Fatima : 1945 MR number: [id number] Date of Service: 12/10/2021 Gluing Machine Operator Electronic: Vitaliy Nobles MD Fellow: [place] MD [...] review of alf diabetes care. Diabetes History: Don Fatima has had diabetes for 10 years. He has been on insulin for the last several years andis managed by his PCP. Lives in [place] with his . States that he [...] your patient Desirae Jett APRN Endocrinology Pager [phone] 70 minutes of this 80 minute visit [...] for further details. STEPHANIE Rebolledo 12/08/2021 Pager [phone] documented in this encounter Plan of Treatment Upcoming Encounters Date Type Specialty Care Team Description 05/28/2022 Appointment Cardiology Zulma Dolan MD [facility] [place], [place] [address] (Wo lissa) 05/28/2022 Laboratory Appointment Lab 05/28/2022 Office Visit Cardiology Zulma Dolan MD [facility] [place] [address] [facility] [place] [address] 06/10/2022 Office Visit Dermatology Laura Scherer MD [facility] DR TEJA [place] OGY [place], [place] [address] (Wo rk) Scheduled Referrals Name [...] POC Glucose 215 (H) 65 - 199 [facility] mg/dL [facility] LABORATORY Comment: Supplemental ranges: <140 mg/dL before meals <180 mg/dL all other times of the day Specimen Anatomical Collection Method Collection Time Receive d Time (Source) Location / / Volume Laterality Blood 12/12/2021 7:42 AM 7:42 EDT AM EDT Ifeanyi Truong MD POINT OF CARE TEST ORDERABLE S Performing Organization Address City/State/[place] [address] (ABNORMAL) Differential, Automated (12/12/2021 4:51 AM EDT) athologist Signature Neutrophils % 75.4 % [facility] LABORATORY Neutr Abs (ANC) 5.95 1.70 - [facility] 6.10 [facility] x10(3)/[facility] LABORATORY Lymphocytes % 12.2 % [facility] LABORATORY Lymphocytes Abs 1.0 0.9 - 3.2 [facility] x10(3)/[facility] LABORATORY Monocytes % 9.5 % [facility] LABORATORY Monocyte Abs 0.8 0.3 - 0.9 [facility] x10(3)/[facility] LABORATORY Eosinophils % 1.8 % [facility] LABORATORY Eosinophils Abs 0.1 0.0 - 0.4 [facility] x10(3)/[facility] LABORATORY Basophils % 0.5 % [facility] LABORATORY Basophils Abs 0.0 0.0 - 0.1 [facility] x10(3)/[facility] LABORATORY Immature Gran % 0.60 % [...] Address City/State/ZIP Code Phon e Number [address] (ABNORMAL) Hemogram (12/12/2021 4:51 AM EDT) Analysis Performed At Patho logist Time Signature WBC 7.9 4.0 - 9.5 [facility] x[facility](3[facility] LABORATORY RBC 4.19 (L) 4.58 - [place] 5.54 [facility] x10(6)/[facility] LABORATORY Hemoglobin 12.1 (L) 13.7 - [place] 16.5 g/dL [facility] LABORATORY Hematocrit 36.7 (L) 40.5 - [facility] 48.5 % [facility] LABORATORY MCV 87.6 82.9 - [facility] 93.1 [facility] LABORATORY MCH 28.9 27.5 - [place] 32.1 pg [facility] LABORATORY MCHC 33.0 32.0 - [place] 35.7 g/dL [facility] LABORATORY Platelets 231 145 - 357 [facility] x10(3)/[facility] LABORATORY RDWSD 47.2 (H) 36.0 - [facility] RYAN 45.0 [facility] LABORATORY RDWCV 14.6 (H) 11.4 - [facility] RYAN 13.8 % [facility] LABORATORY MPV 9.5 7.6 - 12.9 [facility] RYAN [facility] LABORATORY nRBC % Auto 0.0 % [facility] LABORATORY nRBC Abs Auto 0.000 0.000 - [place] 0.000 [facility] x10(3)/[facility] LABORATORY Specimen Anatomical Collection Method Collection Time Receive d Time (Source) Location / / Volume Laterality Blood 12/12/2021 4:51 AM 2 5:06 EDT AM EDT Resulting Agency Comment Spec In Lab Bijan Sun MD HEMATOLOGY ORDERABLES Performing Organization Address City/[facility]/[place] [address] (ABNORMAL) Prothrombin Time (12/12/2021 4:51 AM EDT) athologist Signature PT 14.9 (H) 9.4 - 12.5 [facility] LABORATORY INR 1.3 [facility] LABORATORY Comment: An INR [...] Organization Address City/State/[place] [address] (ABNORMAL) BMP w/fasting Glucose (12/12/2021 4:51 AM EDT) athologist Signature Glucose 152 (H) 65 - 99 [facility] Fasting mg/dL [facility] LABORATORY Comment: ?Fasting* Glucose Interpretive [...] estions. Chloride 105 98 - 107 mmol/L [facility] LABORATORY CO2 21 (L) 22 - 31 mmol/L [facility] LABORATORY Anion Gap 17 (H) 5 - 15 mmol/L [facility] LABORATORY Calcium 8.9 8.5 - 10.5 mg/dL [facility] LABORATORY Estimated GFR 38 (L) >=60 mL/min/1.73 m?? [facility] [...] Organization Address City/State/[place] [address] Magnesium (12/12/2021 4:51 AM EDT) athologist Signature Magnesium 1.02 0.69 - 1.07 [place] mmol/L [facility] LABORATORY Specimen Anatomical Collection Method Collection Time Receive d Time (Source) Location / / Volume Laterality Blood 12/12/2021 4:51 AM 2 5:06 EDT AM EDT Resulting Agency Comment Spec In Lab Iker Cuevas MD CHEMISTRY ORDERABLES Performing Organization Address City/[facility]/ZIP Code Phon e Number [address] POCT Glucose (12/12/2021 3:43 AM EDT) athologist Signature POC Glucose 138 65 - 199 [place] mg/dL [facility] LABORATORY Comment: Supplemental ranges: <140 mg/dL before meals <180 mg/dL all other times of the day Specimen Anatomical Collection Method Collection Time Receive d Time (Source) Location / / Volume Laterality Blood 12/12/2021 3:43 AM 2 3:43 EDT AM EDT Iker Cuevas MD POINT OF CARE TEST ORDERABLE S Performing Organization Address City/State/ZIP Code Phon e Number [address] POCT Glucose (12/11/2021 11:44 PM EDT) athologist Signature POC Glucose 124 65 - 199 [place] mg/dL [facility] LABORATORY Comment: Supplemental ranges: <140 mg/dL before meals <180 mg/dL all other times of the day Specimen Anatomical Collection Method Collection Time Receive d Time (Source) Location / / Volume Laterality Blood 12/11/2021 11:44 12/11/2021 PM EDT 11:44 PM EDT Iker Cuevas MD POINT OF CARE TEST ORDERABLE S Performing Organization Address City/State/ZIP Code Phon e Number [address] (ABNORMAL) POCT Glucose (12/11/2021 8:12 PM EDT) athologist Signature POC Glucose 200 (H) 65 - 199 [place] mg/dL [facility] LABORATORY Comment: Supplemental ranges: <140 mg/dL before meals <180 mg/dL all other times of the day Specimen Anatomical Collection Method Collection Time Receive d Time (Source) Location / / Volume Laterality Blood 12/11/2021 8:12 PM 2 8:12 EDT PM EDT Iker Cuevas MD POINT OF CARE TEST ORDERABLE S Performing Organization Address City/State/[place] [address] (ABNORMAL) POCT Glucose (12/11/2021 6:50 PM EDT) P athologist Signature POC Glucose 245 (H) 65 - 199 [place] mg/dL [facility] LABORATORY Comment: Supplemental ranges: <140 mg/dL before meals <180 mg/dL all other times of the day Specimen Anatomical Collection Method Collection Time Receive d Time (Source) Location / / Volume Laterality Blood 12/11/2021 6:50 PM 2 6:50 EDT PM EDT Iker Cuevas MD POINT OF CARE TEST ORDERMATTHEW S Performing Organization Address City/State/[place] [address] (ABNORMAL) POCT Glucose (12/11/2021 4:00 PM EDT) P athologist Signature POC Glucose 383 (H) 65 - 199 [facility] RYAN mg/dL [facility] LABORATORY Comment: Supplemental ranges: <140 mg/dL before meals <180 mg/dL all other times of the day Specimen Anatomical Collection Method Collection Time Receive d Time (Source) Location / / Volume Laterality Blood 12/11/2021 4:00 PM 2 4:00 EDT PM EDT Iker Cuevas MD POINT OF CARE TEST ORDERABLE S Performing Organization Address City/State/[place] [address] (ABNORMAL) POCT Glucose (12/11/2021 12:01 PM EDT) P athologist Signature POC Glucose 342 (H) 65 - 199 [place] mg/dL [facility] LABORATORY Comment: Supplemental ranges: <140 mg/dL before meals <180 mg/dL all other times of the day Specimen Anatomical Collection Method Collection Time Receive d Time (Source) Location / / Volume Laterality Blood 12/11/2021 12:01 12/11/2021 PM EDT 12:01 PM EDT Iker Cuevas MD POINT OF CARE TEST ORDERABLE S Performing Organization Address City/State/ZIP Code Ph[place] [address] COVID-19 PCR (12/11/2021 10:13 AM EDT) [facility] Method Time Signature SARS-CoV-2 Not Detected Not Detected [place] RNA [facility] LABORATORY [...] diagnosis of COVID-19 is performed using the [employer] RONNA S-CoV-2 Assay as authorized by the FDA Emergency Use Authorization (EUA). This EUA assay is intended for In-vitro Diagnostic (IVD) use with respiratory sp ecimens such as nasopharyngeal swabs collected from individuals during the ac kaibab phase of infection. This assay is performed based on the instructions for use provided by [employer] and additional guidance provided by CDC [...] is infected. As required or requested by [facility], positive specimens may be sent [...] clinical management guidance information are available at [facility] CDC Coronavirus Disease 2019 (COVID-19) webpage under Information fo r Healthcare Professionals (https://www.cdc.gov/coronavirus/2019-nc ov/hcp/index.html) Additional information about this and ot her EUA tests can be found in provider and patient fact sheets at the following FDA website: https://www.fda.gov/medical-devices/pflsnsaftjv-xhvchhm-4747-qfikp-39-ybuqvmyfl- nuo-jffjpgvkfamash-ffgbgkp-devices/nozvr-cfxqoimwily-jxsz SARS-Cov-2 RNA Source HIP HOP DANCER Swab [facility] LABORATORY Specimen (Source) Anatomical Collection Method Collection Time Re ceived Time Location / / Volume Laterality Nasopharyngeal Swab 12/11/2021 10:13 11/23 AM EDT 11:16 AM EDT Comment: Symptoms->Surveillance Resulting Agency Comment Spec In Lab Iker Cuevas MD MICROBIOLOGY - GENERAL ORDER [place] Performing Organization Address City/State/[place] [address] POCT Glucose (12/11/2021 7:34 AM EDT) P athologist Signature POC Glucose 198 65 - 199 [facility] mg/dL [facility] LABORATORY Comment: Supplemental ranges: <140 mg/dL before meals <180 mg/dL all other times of the day Specimen Anatomical Collection Method Collection Time Receive d Time (Source) Location / / Volume Laterality Blood 12/11/2021 7:34 AM 2 7:34 EDT AM EDT Iker Cuevas MD POINT OF CARE TEST ORDERABLE S Performing Organization Address City/State/[place] [address] (ABNORMAL) POCT Glucose (12/11/2021 5:07 AM EDT) P athologist Signature POC Glucose 208 (H) 65 - 199 [facility] mg/dL [facility] LABORATORY Comment: Supplemental ranges: <140 mg/dL before meals <180 mg/dL all other times of the day Specimen Anatomical Collection Method Collection Time Receive d Time (Source) Location / / Volume Laterality Blood 12/11/2021 5:07 AM 2 5:07 EDT AM EDT Iker Cuevas MD POINT OF CARE TEST ORDERABLE S Performing Organization Address City/State/[place] [address] (ABNORMAL) Differential, Automated (12/11/2021 4:28 AM EDT) Patholo gist Method Time Signature Neutrophils % 79.6 % [facility] LABORATORY Neutr Abs (ANC) 7.01 (H) 1.70 - [facility] 6.10 [facility] x10(3)/[facility] L LABORATORY Lymphocytes % 9.1 % [facility] LABORATORY Lymphocytes Abs 0.8 (L) 0.9 - 3.2 [facility] x10(3)/[facility] LABORATORY Monocytes % 9.2 % [facility] LABORATORY Monocyte Abs 0.8 0.3 - 0.9 [facility] x10(3)/[facility] LABORATORY Eosinophils % 1.3 % [facility] LABORATORY Eosinophils Abs 0.1 0.0 - 0.4 [facility] x10(3)/[facility] LABORATORY Basophils % 0.5 % [facility] LABORATORY Basophils Abs 0.0 0.0 - 0.1 [facility] x10(3)/[facility] LABORATORY Immature Gran % 0.30 % [facility] [...] 0.04 x10(3)/[facility] MAR Y [facility] LABORATORY Specimen Anatomical Collection Method Collection Time Receive d Time (Source) Location / / Volume Laterality Blood 12/11/2021 4:28 AM 4:37 EDT AM EDT Resulting Agency Comment Spec In Lab Bijan Sun MD HEMATOLOGY ORDERABLES Performing Organization Address City/State/ZIP Code Phon e Number [place] [id number] (ABNORMAL) Hemogram (12/11/2021 4:28 AM EDT) Analysis Performed At Patho logist Time Signature WBC 8.8 4.0 - 9.5 [facility] x10(3)/[facility] LABORATORY RBC 4.15 (L) 4.58 - [place] 5.54 [facility] x10(6)/[facility] LABORATORY Hemoglobin 11.9 (L) 13.7 - [facility] 16.[facility] g/dL [facility] LABORATORY Hematocrit 36.9 (L) 40.5 - [facility] RYAN 48.5 % [facility] LABORATORY MCV 88.9 82.9 - [facility] RYAN 93.1 [facility] LABORATORY MCH 28.7 27.5 - [place] 32.1 pg [facility] LABORATORY MCHC 32.2 32.0 - [facility] 35.7 g/dL [facility] LABORATORY Platelets 211 145 - 357 [facility] x10(3)/[facility] LABORATORY RDWSD 48.3 (H) 36.0 - [facility] RYAN 45.0 [facility] LABORATORY RDWCV 14.8 (H) 11.4 - [facility] RYAN 13.8 % [facility] LABORATORY MPV 9.6 7.6 - 12.9 [facility] LABORATORY nRBC % Auto 0.0 % [facility] LABORATORY nRBC Abs Auto 0.000 0.000 - [facility] 0.000 [facility] x10(3)/[facility] LABORATORY Specimen Anatomical Collection Method Collection Time Receive d Time (Source) Location / / Volume Laterality Blood 12/11/2021 4:28 AM 2 4:37 EDT AM EDT Resulting Agency Comment Spec In Lab Bijan Sun MD HEMATOLOGY ORDERABLES Performing Organization Address City/[facility]/ZIP [facility] [place] [address] (ABNORMAL) Prothrombin Time (12/11/2021 4:28 AM EDT) P athologist Signature PT 17.7 (H) 9.4 - 12.5 [facility] LABORATORY INR 1.6 [facility] LABORATORY Comment: An INR [...] Cuevas MD HEMATOLOGY ORDERABLES Performing Organization Address City/[facility]/[place] [address] (ABNORMAL) BMP w/fasting Glucose (12/11/2021 4:28 AM EDT) P athologist Signature Glucose 207 (H) 65 - 99 [facility] Fasting mg/dL [facility] LABORATORY Comment: ?Fasting* Glucose Interpretive [...] [facility] LABORATORY Estimated GFR 48 (L) >=60 mL/min/1.73 m?? [facility] [...] Cuevas MD CHEMISTRY ORDERABLES Performing Organization Address City/[facility]/[place] [address] Magnesium (12/11/2021 4:28 AM EDT) athologist Signature Magnesium 1.04 0.69 - 1.07 [facility]L [facility] LABORATORY Specimen Anatomical Collection Method Collection Time Receive d Time (Source) Location / / Volume Laterality Blood 12/11/2021 4:28 AM 2 4:37 EDT AM EDT Resulting Agency Comment Spec In Lab Iker Cuevas MD CHEMISTRY ORDERABLES Performing Organization Address City/[facility]/ZIP Code Phon e Number [address] POCT Glucose (12/11/2021 3:58 AM EDT) athologist Signature POC Glucose 189 65 - 199 [place] mg/dL [facility] LABORATORY Comment: Supplemental ranges: <140 mg/dL before meals <180 mg/dL all other times of the day Specimen Anatomical Collection Method Collection Time Receive d Time (Source) Location / / Volume Laterality Blood 12/11/2021 3:58 AM 2 3:58 EDT AM EDT Iker Cuevas MD POINT OF CARE TEST ORDERABLE S Performing Organization Address City/[facility]/[place] [address] (ABNORMAL) POCT Glucose (12/10/2021 11:45 PM EDT) athologist Signature POC Glucose 205 (H) 65 - 199 [place] mg/dL [facility] LABORATORY Comment: Supplemental ranges: <140 mg/dL before meals <180 mg/dL all other times of the day Specimen Anatomical Collection Method Collection Time Receive d Time (Source) Location / / Volume Laterality Blood 12/10/2021 11:45 12/10/2021 PM EDT 11:45 PM EDT Iker Cuevas MD POINT OF CARE TEST ORDERABLE S Performing Organization Address City/[facility]/[place] [address] (ABNORMAL) POCT Glucose (12/10/2021 7:54 PM EDT) athologist Signature POC Glucose 225 (H) 65 - 199 [facility] LABORATORY Comment: Supplemental ranges: <140 mg/dL before meals <180 mg/dL all other times of the day Specimen Anatomical Collection Method Collection Time Receive d Time (Source) Location / / Volume Laterality Blood 12/10/2021 7:54 PM 2 7:54 EDT PM EDT Iker Cuevas MD POINT OF CARE TEST ORDERABLE S Performing Organization Address City/[facility]/[place] [address] Potassium (12/10/2021 7:46 PM EDT) athologist [facility] Potassium 4.2 3.5 - 5.0 [facility] mmol/L [facility] LABORATORY Comment: Please note: ??Patients [...] Cuevas MD CHEMISTRY ORDERABLES Performing Organization Address City/[facility]/ZIP [facility] [place] [address] (ABNORMAL) Basic Metabolic Panel (non-fasting) (12/10/2021 6:12 PM EDT) athologist Signature Glucose Lvl 246 (H) 65 - 199 [facility] mg/dL [facility] [...] 107 mmol/L [facility] LABORATORY CO2 22 22 - 31 mmol/L [facility] [...] Address City/State/ZIP Code Phon e Number [address] POCT Glucose (12/10/2021 4:59 PM EDT) P athologist Signature POC Glucose 158 65 - 199 [facility] mg/dL [facility] LABORATORY Comment: Supplemental ranges: <140 mg/dL before meals <180 mg/dL all other times of the day Specimen Anatomical Collection Method Collection Time Receive d Time (Source) Location / / Volume Laterality Blood 12/10/2021 4:59 PM 2 4:59 EDT PM EDT Iker Cuevas MD POINT OF CARE TEST ORDERABLE S Performing Organization Address City/State/[place] [address] (ABNORMAL) POCT Glucose (12/10/2021 12:43 PM EDT) P athologist Signature POC Glucose 241 (H) 65 - 199 [facility] mg/dL [facility] LABORATORY Comment: Supplemental ranges: <140 mg/dL before meals <180 mg/dL all other times of the day Specimen Anatomical Collection Method Collection Time Receive d Time (Source) Location / / Volume Laterality Blood 12/10/2021 12:43 12/10/2021 PM EDT 12:43 PM EDT Iker Cuevas MD POINT OF CARE TEST ORDERABLE S Performing Organization Address City/State/[place] [address] EKG 12 Lead (12/10/2021 11:17 AM EDT) Component Value Ref Range Test Analysis Performed Pathologis t Method Time At Signature Ventricular rate 62 BPM MUSE SYSTEM Atrial Rate 62 BPM MUSE SYSTEM P-R Interval 142 ms MUSE SYSTEM QRS Duration 100 ms MUSE SYSTEM Q-T Interval 434 ms MUSE SYSTEM QTC Calculated 440 ms MUSE SYSTEM (Bezet) Calculated P [place] 34 degrees MUSE SYSTEM Calculated R [place] -39 degrees MUSE SYSTEM Calculated T [place] 92 degrees MUSE SYSTEM INTERPRETATION Normal sinus rhythm MUSE SYSTEM Left axis deviation Minimal voltage criteria for LVH, may be normal variant ( [place] product ) Cannot rule out Inferior infarct [...] Narrative 12/10/2021 12:04 PM EDT ?[facility] ? Cardiac Cathete rization/Intervention Report ? Patient Name: Don FatimaMadiha ? Procedure Date: 12/10/2021 ? A #: [id number] ? Primary Physician: Nobles, Vitaliy P ? Case #: [id number] ? File Name: [id number] ? Catheterization Order Number: [id number] ? [facility] ?[facility] ? Final Report [place], [place] ? Patient Name: ? Don E. Stewa rt ? ID#: ?[id number] ? : ?1945 ? Procedure Date: ? [...] procedure was Urgent. The indication for ?the grinding and polishing laborer visit is ACS great er than [...] ?3.75 guiding catheter and a 3.5 Fr [facility] [place] 20 Mhz using Manual ?pullback. ??Imaging was [...] ?3.75 guiding catheter and a 3.5 Fr [facility] [place] 20 Mhz using Manual ?pullback. ??Imaging was [...] ?modification of this regimen. C [facility] Interventional Cardiology for ?questions. ?The [...] Vitaliy Nobles MD - 01/14/2022 [facility] Cardiac Catheterization/Intervention Re port Patient Name: Don Fatima Procedure Date: 12/10/2021 A #: [id number] Primary Physician: Vitaliy Nobles Case #: [id number] File Name: [id number] Catheterization Order Number: [id number] [facility] Roller [facility] Final Report [place], [place] Patient Name: Don Fatima ID#: [...] e was Urgent. The indication for the grinding and polishing laborer visit is ACS greater than 24 [...] and a 3.5 Fr [facility] [place] 20 Mhz using Manual pullback. Imaging was [...] and a 3.5 Fr [facility] [place] 20 Mhz using Manual pullback. Imaging was [...] POC Glucose 262 (H) 65 - 199 [facility] mg/dL [facility] LABORATORY Comment: Supplemental ranges: <140 mg/dL before meals <180 mg/dL all other times of the day Specimen Anatomical Collection Method Collection Time Receive d Time (Source) Location / / Volume Laterality Blood 12/10/2021 10:30 12/10/2021 AM EDT 10:30 AM EDT Iker Cuevas MD POINT OF CARE TEST ORDERABLE S Performing Organization Address City/State/[place] [address] (ABNORMAL) POCT Glucose (12/10/2021 9:48 AM EDT) athologist Signature POC Glucose 279 (H) 65 - 199 [place] mg/dL [facility] LABORATORY Comment: Supplemental ranges: <140 mg/dL before meals <180 mg/dL all other times of the day Specimen Anatomical Collection Method Collection Time Receive d Time (Source) Location / / Volume Laterality Blood 12/10/2021 9:48 AM 2 9:48 EDT AM EDT Iker Cuevas MD POINT OF CARE TEST ORDERABLE S Performing Organization Address City/[facility]/[place] [address] (ABNORMAL) POCT Glucose (12/10/2021 9:07 AM EDT) P athologist Signature POC Glucose 268 (H) 65 - 199 [place] mg/dL [facility] LABORATORY Comment: Supplemental ranges: <140 mg/dL before meals <180 mg/dL all other times of the day Specimen Anatomical Collection Method Collection Time Receive d Time (Source) Location / / Volume Laterality Blood 12/10/2021 9:07 AM 2 9:07 EDT AM EDT Iker Cuevas MD POINT OF CARE TEST ORDERABLE S Performing Organization Address City/State/[place] [address] (ABNORMAL) Point of Care Blood Gas Historical (12/10/2021 9:04 AM EDT) [facility] Method Time Signature POC pH 7.40 7.35 - [place] 7.45 [facility] LABORATORY POC PCO2 40 35 - 45 [facility] LABORATORY POC PO2 63 (L) 85 - 104 [facility] LABORATORY POC Base Excess 0.0 -3.0 - 3.0 [facility] K mmol/L [facility] LABORATORY POC HCO3 24.8 20.0 - [facility] 26.0 [facility] POC Sodium 143 135 - 145 [facility] mmol/L [facility] LABORATORY POC Potassium 3.7 3.5 - 5.0 [facility] mmol/L [facility] LABORATORY POC Ionized Ca 1.07 (L) 1.15 - [facility] 1.33 [facility] LAB[facility] POC Hematocrit 30.0 (L) 40.0 - [facility] 51.0 % [facility] POC Calc Hgb 10.2 (L) 13.7 - [facility] 17.5 g/dL [facility] LABORATORY Comment: The calculation of hemoglobin f rom hematocrit assumes a normal MCHC. POC Bgas Loc CC LAB [facility] LABORATORY Specimen Anatomical Collection Method Collection Time Receive d Time (Source) Location / / Volume Laterality Blood 12/10/2021 9:04 AM 2 EDT 12:00 PM EDT Ifeanyi Truong MD CHEMISTRY ORDERABLES Performing Organization Address City/State/[place] [address] (ABNORMAL) POCT Glucose (12/10/2021 7:19 AM EDT) P athologist Signature POC Glucose 274 (H) 65 - 199 [facility] mg/dL [facility] LABORATORY Comment: Supplemental ranges: <140 mg/dL before meals <180 mg/dL all other times of the day Specimen Anatomical Collection Method Collection Time Receive d Time (Source) Location / / Volume Laterality Blood 12/10/2021 7:19 AM 2 7:19 EDT AM EDT Iker Cuevas MD POINT OF CARE TEST ORDERABLE S Performing Organization Address City/State/[place] [address] Heparin (unfractionated) Level (12/10/2021 [...] City/State/ZIP Code Phon e Number [place] [id number]OS[address] (ABNORMAL) Differential, Automated (12/10/2021 4:25 AM EDT) Patholo gist Method Time Signature Neutrophils % 79.8 % [facility] LABORATORY Neutr Abs (ANC) 7.47 (H) 1.70 - [facility] 6.10 [facility] x10(3)/[facility] L LABORATORY Lymphocytes % 10.6 % [facility] LABORATORY Lymphocytes Abs 1.0 0.9 - 3.2 [facility] x10(3)/[facility] LABORATORY Monocytes % 8.4 % [facility] LABORATORY Monocyte Abs 0.8 0.3 - 0.9 [facility] x10(3)/[facility] LABORATORY Eosinophils % 0.6 % [facility] LABORATORY Eosinophils Abs 0.1 0.0 - 0.4 [facility] x10(3)/[facility] LABORATORY Basophils % 0.2 % [facility] LABORATORY Basophils Abs 0.0 0.0 - 0.1 [facility] x10(3)/[facility] LABORATORY Immature Gran [...] 0.04 x10(3)/[facility] LABORATORY Specimen Anatomical Collection Method Collection Time Receive d Time (Source) Location / / Volume Laterality Blood 12/10/2021 4:25 AM 4:34 EDT AM EDT Resulting Agency Comment Spec In Lab Morgan BROWN HEMATOLOGY ORDERABLES Performing Organization Address City/State/[place] [address] (ABNORMAL) Hemogram (12/10/2021 4:25 AM EDT) Analysis Performed At Patho logist Time Signature WBC 9.4 4.0 - 9.5 [facility] x10(3)/[facility] LABORATORY RBC 3.81 (L) 4.58 - [facility] 5.54 [facility] x10(6)/[facility] LABORATORY Hemoglobin 11.1 (L) 13.7 - [facility] 16.5 g/dL [facility] LABORATORY Hematocrit 34.0 (L) 40.5 - [facility] 48.5 % [facility] LABORATORY MCV 89.2 82.9 - [facility] 93.1 [facility] LABORATORY MCH 29.1 27.5 - [facility] 32.1 pg [facility] LABORATORY MCHC 32.6 32.0 - [facility] 35.7 g/dL [facility] LABORATORY Platelets 183 145 - 357 [facility] x10(3)/[facility] LABORATORY RDWSD 49.9 (H) 36.0 - [facility] RYAN 45.0 [facility] LABORATORY RDWCV 15.2 (H) 11.4 - [facility] 13.8 % [facility] LABORATORY MPV 9.8 7.6 - 12.9 [facility] LABORATORY nRBC % Auto 0.0 % [facility] LABORATORY nRBC Abs Auto 0.000 0.000 - [place] 0.000 [facility] x10(3)/[facility] LABORATORY Specimen Anatomical Collection Method Collection Time Receive d Time (Source) Location / / Volume Laterality Blood 12/10/2021 4:25 AM 2 4:34 EDT AM EDT Resulting Agency Comment Spec In Lab Morgan BROWN HEMATOLOGY ORDERABLES Performing Organization Address City/[facility]/ZIP Code Phon e Number [address] (ABNORMAL) Prothrombin Time (12/10/2021 4:25 AM EDT) P athologist Signature PT 20.0 (H) 9.4 - 12.5 [facility] LABORATORY INR 1.7 [facility] LABORATORY Comment: An INR [...] Cuevas MD HEMATOLOGY ORDERABLES Performing Organization Address City/[facility]/[place] [address] (ABNORMAL) BMP w/fasting Glucose (12/10/2021 4:25 AM EDT) P athologist Signature Glucose 210 (H) 65 - 99 [facility] Fasting mg/dL [facility] LABORATORY Comment: ?Fasting* Glucose Interpretive [...] Calcium 8.0 (L) 8.5 - 10.5 mg/dL [facility] LABORATORY Estimated GFR 44 (L) >=60 mL/min/1.73 m?? [facility] [...] Organization Address City/State/[place] [address] Magnesium (12/10/2021 4:25 AM EDT) athologist Signature Magnesium 0.95 0.69 - 1.07 [place] [facility] mmol/L [facility] LABORATORY Specimen Anatomical Collection Method Collection Time Receive d Time (Source) Location / / Volume Laterality Blood 12/10/2021 4:25 AM 2 4:34 EDT AM EDT Resulting Agency Comment Spec In Lab Iker Cuevas MD CHEMISTRY ORDERABLES Performing Organization Address City/[facility]/[place] [address] POCT Glucose (12/10/2021 1:58 AM EDT) athologist Signature POC Glucose 164 65 - 199 [place] mg/dL [facility] LABORATORY Comment: Supplemental ranges: <140 mg/dL before meals <180 mg/dL all other times of the day Specimen Anatomical Collection Method Collection Time Receive d Time (Source) Location / / Volume Laterality Blood 12/10/2021 1:58 AM 2 1:58 EDT AM EDT Iker Cuevas MD POINT OF CARE TEST ORDERABLE S Performing Organization Address City/[facility]/ZIP Code Phon e Number [address] (ABNORMAL) POCT Glucose (12/09/2021 9:02 PM EDT) athologist Signature POC Glucose 313 (H) 65 - 199 [place] mg/dL [facility] LABORATORY Comment: Supplemental ranges: <140 mg/dL before meals <180 mg/dL all other times of the day Specimen Anatomical Collection Method Collection Time Receive d Time (Source) Location / / Volume Laterality Blood 12/09/2021 9:02 PM 2 9:02 EDT PM EDT Iker Cuevas MD POINT OF CARE TEST ORDERABLE S Performing Organization Address City/[facility]/[place] [address] Heparin (unfractionated) Level (12/09/2021 7:30 PM EDT) athologist Signature Heparin UFH 0.48 IU/mL [facility] LABORATORY Comment: Heparin [...] Organization Address City/State/[place] [address] (ABNORMAL) Basic Metabolic Panel (non-fasting) (12/09/2021 7:30 PM EDT) athologist Signature Glucose Lvl 372 (H) 65 - 199 [facility] mg/dL [facility] LABORATORY [...] 107 mmol/L [facility] LABORATORY CO2 22 22 - 31 mmol/L [facility] LABORATORY Anion Gap 14 5 - 15 mmol/L [facility] LABORATORY Calcium 8.1 (L) 8.5 - 10.5 mg/dL [facility] LABORATORY Estimated GFR 37 (L) >=60 mL/min/1.73 m?? [facility] [...] Organization Address City/State/[place] [address] (ABNORMAL) POCT Glucose (12/09/2021 6:34 PM EDT) athologist Signature POC Glucose 408 (H) 65 - 199 [place] mg/dL [facility] LABORATORY Comment: Supplemental ranges: <140 mg/dL before meals <180 mg/dL all other times of the day Specimen Anatomical Collection Method Collection Time Receive d Time (Source) Location / / Volume Laterality Blood 12/09/2021 6:34 PM 2 6:34 EDT PM EDT Iker Cuevas MD POINT OF CARE TEST ORDERABLE S Performing Organization Address City/State/[place] [address] (ABNORMAL) POCT Glucose (12/09/2021 6:32 PM EDT) athologist Signature POC Glucose 356 (H) 65 - 199 [facility] mg/dL [facility] LABORATORY Comment: Supplemental ranges: <140 mg/dL before meals <180 mg/dL all other times of the day Specimen Anatomical Collection Method Collection Time Receive d Time (Source) Location / / Volume Laterality Blood 12/09/2021 6:32 PM 2 6:32 EDT PM EDT Iker Cuevas MD POINT OF CARE TEST ORDERABLE S Performing Organization Address City/[facility]/[place] [address] (ABNORMAL) POCT Glucose (12/09/2021 4:19 PM EDT) athologist Signature POC Glucose 347 (H) 65 - 199 [facility] mg/dL [facility] LABORATORY Comment: Supplemental ranges: <140 mg/dL before meals <180 mg/dL all other times of the day Specimen Anatomical Collection Method Collection Time Receive d Time (Source) Location / / Volume Laterality Blood 12/09/2021 4:19 PM 2 4:19 EDT PM EDT Iker Cuevas MD POINT OF CARE TEST ORDERABLE S Performing Organization Address City/State/[place] [address] Heparin (unfractionated) Level (12/09/2021 1:29 PM EDT) athologist Signature Heparin UFH 0.42 IU/mL [facility] LABORATORY Comment: Heparin [...] Organization Address City/State/[place] [address] (ABNORMAL) POCT Glucose (12/09/2021 12:02 PM EDT) athologist Signature POC Glucose 235 (H) 65 - 199 [facility] mg/dL [facility] LABORATORY Comment: Supplemental ranges: <140 mg/dL before meals <180 mg/dL all other times of the day Specimen Anatomical Collection Method Collection Time Receive d Time (Source) Location / / Volume Laterality Blood 12/09/2021 12:02 12/09/2021 PM EDT 12:02 PM EDT Iker Cuevas MD POINT OF CARE TEST ORDERABLE S Performing Organization Address City/State/[place] [address] (ABNORMAL) POCT Glucose (12/09/2021 9:44 AM EDT) athologist Signature POC Glucose 214 (H) 65 - 199 [place] [facility] mg/dL [facility] LABORATORY Comment: Supplemental ranges: <140 mg/dL before meals <180 mg/dL all other times of the day Specimen Anatomical Collection Method Collection Time Receive d Time (Source) Location / / Volume Laterality Blood 12/09/2021 9:44 AM 2 9:44 EDT AM EDT Iker Cuevas MD POINT OF CARE TEST ORDERABLE S Performing Organization Address City/[facility]/[place] [address] EKG 12 Lead (12/09/2021 7:57 AM EDT) Component Value Ref Range Test Analysis Performed Pathologis t Method Time At Signature Ventricular rate 101 BPM MUSE SYSTEM Atrial Rate 101 BPM MUSE SYSTEM P-R Interval 150 ms MUSE SYSTEM QRS Duration 112 ms MUSE SYSTEM Q-T Interval 364 ms MUSE SYSTEM QTC Calculated 471 ms MUSE SYSTEM (Bezet) Calculated P [place] 59 degrees MUSE SYSTEM Calculated R [place] -42 degrees MUSE SYSTEM Calculated T [place] 102 degrees MUSE SYSTEM INTERPRETATION Sinus tachycardia Occasional Premature ventricular com plexes MUSE SYSTEM Left axis deviation 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) Abnormal ECG When compared with ECG of 08-DEC-2021 16:40, Premature ventricular complexes are now Present Confirmed by MD Fernandez Danette ([id number]) on 12/10/2021 4:55:06 PM Specimen Anatomical Collection Method Collection Time Receive d Time (Source) Location / / Volume Laterality 12/09/2021 7:57 AM 2 4:55 EDT PM EDT Iker Cuevas MD ECG ORDERABLES Performing Organization Address City/State/ZIP Code Phon e Number MUSE SYSTEM (ABNORMAL) POCT Glucose (12/09/2021 7:28 AM EDT) P athologist Signature POC Glucose 263 (H) 65 - 199 [facility] mg/dL [facility] LABORATORY Comment: Supplemental ranges: <140 mg/dL before meals <180 mg/dL all other times of the day Specimen Anatomical Collection Method Collection Time Receive d Time (Source) Location / / Volume Laterality Blood 12/09/2021 7:28 AM 2 7:28 EDT AM EDT Iker Cuevas MD POINT OF CARE TEST ORDERABLE S Performing Organization Address City/State/ZIP Code Phon e Number [place] [id number]OS[address] LAB[address]ORY Drive (ABNORMAL) Hemoglobin A1c (12/09/2021 [...] Mellitus, Diabetes Care 2013; 36: Suppl. 1, H17-50 Est Avg Gluc See note mg/dL HOLDEN [...] into estimated average glucose values. ??Diabetes Care 2008:31(8):0664-9416. Specimen Anatomical Collection Method Collection Time Receive d Time (Source) Location / / Volume Laterality Blood Venous Draw / 12/09/2021 6:18 AM 12/10/19 22 Unknown EDT 12:24 PM EDT Resulting Agency Comment Spec In Lab Migdalia BROWN CHEMISTRY ORDERABLES Performing Organization Address [facility] [place] [address] (ABNORMAL) Prothrombin Time (12/09/2021 6:18 AM EDT) athologist Signature PT 26.6 (H) 9.4 - 12.5 [facility] LABORATORY INR 2.3 [facility] LABORATORY Comment: An INR [...] Migdalia BROWN HEMATOLOGY ORDERABLES Performing Organization Address [facility] [place] [address] Heparin (unfractionated) Level (12/09/2021 6:18 AM EDT) P athologist Signature Heparin UFH 0.24 IU/mL [facility] LABORATORY Comment: Heparin [...] Organization Address City/State/[place] [address] (ABNORMAL) Differential, Automated (12/09/2021 6:18 AM EDT) [facility] Method Time Signature Neutrophils % 91.5 % [facility] LABORATORY Neutr Abs (ANC) 15.78 (H) 1.70 - [facility] 6.10 [facility] x10(3)/[facility] LABORATORY Lymphocytes % 2.9 % [facility] LABORATORY Lymphocytes Abs 0.5 (L) 0.9 - 3.2 [facility] x10(3)/[facility] LABORATORY Monocytes % 4.9 % [facility] LABORATORY Monocyte Abs 0.8 0.3 - 0.9 [facility] x10(3)/[facility] LABORATORY Eosinophils % 0.0 % [facility] LABORATORY Eosinophils Abs 0.0 0.0 - 0.4 [facility] x10(3)/[facility] LABORATORY Basophils % 0.2 % [facility] LABORATORY Basophils Abs 0.0 0.0 - 0.1 [facility] x10(3)/[facility] LABORATORY Immature Gran % 0.50 % [facility] [...] Organization Address City/State/[place] [address] (ABNORMAL) Hemogram (12/09/2021 6:18 AM EDT) Analysis Performed At Patho logist Time Signature WBC 17.2 (H) 4.0 - 9.5 [facility] x10(3)/[facility] LABORATORY RBC 4.32 (L) 4.58 - [facility] 5.54 [facility] x10(6)/[facility] LABORATORY Hemoglobin 12.6 (L) 13.7 - [facility] 16.[facility] g/dL [facility] LABORATORY Hematocrit 38.9 (L) 40.5 - [facility] 48.5 % [facility] LABORATORY MCV 90.0 82.9 - [facility] 93.1 [facility] LABORATORY MCH 29.2 27.5 - [facility] 32.1 pg [facility] LABORATORY MCHC 32.4 32.0 - [facility] 35.7 g/dL [facility] LABORATORY Platelets 193 145 - 357 [facility] x10(3)/[facility] LABORATORY RDWSD 50.4 (H) 36.0 - [facility] 45.0 [facility] LABORATORY RDWCV 15.2 (H) 11.4 - [facility] 13.8 % [facility] LABORATORY MPV 9.5 7.6 - 12.9 [facility] LABORATORY nRBC % Auto 0.0 % [facility] LABORATORY nRBC Abs Auto 0.000 0.000 - [facility] 0.000 [facility] x10(3)/[facility] LABORATORY Specimen Anatomical Collection Method Collection Time Receive d Time (Source) Location / / Volume Laterality Blood 12/09/2021 6:18 AM 6:33 EDT AM EDT Resulting Agency Comment Spec In Lab Morgan BROWN HEMATOLOGY ORDERABLES Performing Organization Address City/State/[place] [address] Lipid Panel (Reflex Direct LDL) (12/09/2021 6:18 AM EDT) athologist Signature Chol, Total 105 mg/dL [facility] LABORATORY Comment: Lower Risk: <200 mg/dL Average Risk: 200-239 mg/dL Higher Risk: >um=599 mg/dL Triglycerides 133 mg/dL [facility] LABORATORY Comment: Average Risk/Lower Risk: <150 mg/dL Borderline High Risk: 150-199 mg/dL High Risk: 200-499 mg/dL Very High Risk: >vn=460 mg/dL HDL 42 mg/dL [facility] LABORATORY Comment: Males: ?? Higher Risk: <40 mg/dL Females: ?? Higher Risk: <50 mg/dL LDL Cholesterol 36 mg/dL [facility] LABORATORY Comment: Lowest Risk: <100 mg/dL Lower Risk: 100-129 mg/dL Borderline High Risk: 130-159 mg/dL High Risk: 160-189 mg/dL Very High Risk: >vm=088 mg/dL Chol/HDL Ratio 2.5 ratio [facility] LABORATORY Lipid Interpretation See Note [facility] LABORATORY Comment: Lipid management should be guided by a p atient? s ASCVD risk, goals and preferences. ACC/AHA Guidelines recommend high intens ity statin if clinical ASCVD or LDL greater than or equal to 190 mg/dL. http://tinyurl.com/SOD-XWN-Qqmqdnbue Adults aged 40-75 with LDL 70-189 mg/dL should have their 10 year ASCVD risk estimated with the ACC/AHA ASCVD risk es timator http://tools.acc.org/ANPIK-Sqti-Mpobwtor r/ Statin should be discussed if risk [...] Cuevas MD CHEMISTRY ORDERABLES Performing Organization Address City/[facility]/ZIP Code Phon e Number [address] TSH (12/09/2021 6:18 AM EDT) P athologist Signature TSH 1.60 0.27 - 4.20 [facility] mcIU/mL [facility] LABORATORY Comment: Reference Interval (mcIU/mL): Females: ??First Trimester: 0.23-3.88 ??Second Trimester: 0.22-3.90 ??Third Trimester: 0.44-4.66 Specimen Anatomical Collection Method Collection Time Receive d Time (Source) Location / / Volume Laterality Blood 12/09/2021 6:18 AM 2 6:33 EDT AM EDT Resulting Agency Comment Spec In Lab Iker Cuevas MD CHEMISTRY ORDERABLES Performing Organization Address City/[facility]/[place] [address] Hepatic Function Panel (12/09/2021 6:18 AM EDT) P athologist Signature Total Protein 7.3 6.1 - 8.0 [facility] g/dL [facility] LABORATORY Albumin 4.2 3.2 - 5.2 [facility] g/dL [facility] LABORATORY AST 25 0 - 39 [place] unit/L [facility] LABORATORY ALT 15 0 - 55 [place] unit/L [facility] LABORATORY Alk Phos 75 40 - 130 [place] unit/L [facility] LABORATORY Total 1.1 0.2 - 1.3 [facility] Bilirubin mg/dL [facility] LABORATORY Bili, Direct 0.2 0.0 - 0.3 [facility] mg/dL [facility] LABORATORY Specimen Anatomical Collection Method Collection Time Receive d Time (Source) Location / / Volume Laterality Blood 12/09/2021 6:18 AM 6:33 EDT AM EDT Resulting Agency Comment Spec In Lab Iker Cuevas MD CHEMISTRY ORDERABLES Performing Organization Address City/State/[place] [address] (ABNORMAL) BMP w/fasting Glucose (12/09/2021 6:18 AM EDT) athologist Signature Glucose 235 (H) 65 - 99 [facility] Fasting mg/dL [facility] LABORATORY Comment: ?Fasting* Glucose Interpretive [...] Estimated GFR 52 (L) >=60 mL/min/1.73 m?? [facility] [...] Cuevas MD CHEMISTRY ORDERABLES Performing Organization Address City/[facility]/ZIP Code Phon e Number [address] Magnesium (12/09/2021 6:18 AM EDT) P athologist Signature Magnesium 0.81 0.69 - 1.07 [facility] mmol/L [facility] LABORATORY Specimen Anatomical Collection Method Collection Time Receive d Time (Source) Location / / Volume Laterality Blood 12/09/2021 6:18 AM 2 6:33 EDT AM EDT Resulting Agency Comment Spec In Lab Iker Cuevas MD CHEMISTRY ORDERABLES Performing Organization Address City/[facility]/ZIP Code Phon e Number [address] (ABNORMAL) Troponin (12/09/2021 6:18 AM EDT) P athologist Signature Troponin-T 1.13 (H) 0.00 - [facility] 0.00 ng/mL [facility] LABORATORY Comment: The 99th percentile [...] additional sample may be indicated. Reference: Third Montegut Definition of Myocardial Infarction. Journal of the [place] [employer] 2012;60:1581-98 Specimen Anatomical Collection Method Collection Time Receive d Time (Source) Location / / Volume Laterality Blood 12/09/2021 6:18 AM 6:33 EDT AM EDT Resulting Agency Comment Spec In Lab Ikre Cuevas MD CHEMISTRY ORDERABLES Performing Organization Address City/State/ZIP Code Phon e Number [place] [address] XR Chest One View [...] who have questions please contact the health primary care coordinator that requested your imaging first. ? Electronically signed by: Yoselin White, [facility] ([phone]), at 12/09/2021 5:35 AM Narrative 12/09/2021 5:35 [...] ho have questions please contact the health primary care coordinator that requested your imaging first. Electronically signed by: Yoselin White, [facility] ([phone]), at 12/09/2021 5:35 AM Amber Sanches MD IMG DX ORDERABLES (ABNORMAL) BLOOD GAS 2 ARTERIAL (12/09/2021 5:14 AM EDT) Analysis Performed At Patho logist Time Signature pH Art 7.43 7.35 - [facility] 7.45 [facility] LABORATORY pCO2 Art 36 35 - 45 [facility] mmHg [facility] LABORATORY pO2 Art 67 (L) 85 - 104 [facility] LABORATORY HCO3 Art 23.4 20.0 - [facility] 26.0 [facility] mmol/[facility] LABORATORY BE Art -0.9 -3.0 - 3.0 [facility] mmol/L [facility] LABORATORY Hgb Blood Gas 13.2 (L) 13.7 - [facility] 16.5 g/dL [facility] O2HB Art 91.3 (L) 94.0 - [facility] 97.0 % [facility] LABORATORY COHB Art 0.4 % [facility] LABORATORY Comment: Nonsmokers: 0.5-1.5% COHB Smokers: Variable, but usually less than 10% Toxic: 20-30% COHB Lethal: Greater than 60% COHB METHB Art 0.4 <=1.5 % [facility] LABORATORY Na Whole Blood 138 135 - 145 mmol/L [facility] LABORATORY K Whole Blood 4.1 3.5 - 5.0 mmol/L [facility] LABORATORY Comment: Please note: Patients with WBC >100,000 may have falsely elevated Potassium levels. Contact the Clinical Chemistry L aboratory if there are any questions. ICa Whole Blood 1.09 (L) 1.15 - 1.33 mmol/L [facility] LAB[facility]ORY FIO2 Art 35 % [facility] LABORATORY Flow Art 8.0 LPM [facility] LABORATORY PF Ratio Art 191 [facility] LABORATORY Specimen Anatomical Collection Method Collection Time Receive d Time (Source) Location / / Volume Laterality Blood 12/09/2021 5:14 AM 2 5:14 EDT AM EDT Iker Cuevas MD CHEMISTRY ORDERABLES Performing Organization Address City/[facility] [place] [address] POCT Glucose (12/09/2021 4:46 AM EDT) P athologist Signature POC Glucose 198 65 - 199 [facility] mg/dL [facility] LABORATORY Comment: Supplemental ranges: <140 mg/dL before meals <180 mg/dL all other times of the day Specimen Anatomical Collection Method Collection Time Receive d Time (Source) Location / / Volume Laterality Blood 12/09/2021 4:46 AM 2 4:46 EDT AM EDT Iker Cuevas MD POINT OF CARE TEST ORDERABLE S Performing Organization Address City/[facility]/[place] [address] (ABNORMAL) POCT Glucose (12/09/2021 3:01 AM EDT) P athologist Signature POC Glucose 225 (H) 65 - 199 [facility] mg/dL [facility] LABORATORY Comment: Supplemental ranges: <140 mg/dL before meals <180 mg/dL all other times of the day Specimen Anatomical Collection Method Collection Time Receive d Time (Source) Location / / Volume Laterality Blood 12/09/2021 3:01 AM 2 3:01 EDT AM EDT Iker Cuevas MD POINT OF CARE TEST ORDERABLE S Performing Organization Address City/State/[place] [address] (ABNORMAL) POCT Glucose (12/08/2021 10:55 PM EDT) athologist Signature POC Glucose 327 (H) 65 - 199 [facility] mg/dL [facility] LABORATORY Comment: Supplemental ranges: <140 mg/dL before meals <180 mg/dL all other times of the day Specimen Anatomical Collection Method Collection Time Receive d Time (Source) Location / / Volume Laterality Blood 12/08/2021 10:55 12/08/2021 PM EDT 10:55 PM EDT Iker Cuevas MD POINT OF CARE TEST ORDERABLE S Performing Organization Address City/[facility]/[place] [address] Heparin (unfractionated) Level (12/08/2021 10:03 PM EDT) athologist Signature Heparin UFH 0.18 IU/mL [facility] LABORATORY Comment: Heparin [...] Organization Address City/State/[place] [address] (ABNORMAL) Troponin (12/08/2021 10:03 PM EDT) athologist Signature Troponin-T 0.92 (H) 0.00 - [facility] 0.00 ng/mL [facility] LABORATORY Comment: The 99th percentile [...] additional sample may be indicated. Reference: Third Montegut Definition of Myocardial Infarction. Journal of the [place] [employer] 2012;60:1581-98 Specimen Anatomical Collection Method Collection Time Receive d Time (Source) Location / / Volume Laterality Blood 12/08/2021 10:03 12/08/2021 PM EDT 10:31 PM EDT Resulting Agency Comment Spec In Lab Iker Cuevas MD CHEMISTRY ORDERABLES Performing Organization Address City/State/ZIP Code Phon e Number [place] [address] (ABNORMAL) POCT Glucose (12/08/2021 8:22 PM EDT) athologist Signature POC Glucose 429 (H) 65 - 199 [facility] mg/dL [facility] LABORATORY Comment: Supplemental ranges: <140 mg/dL before meals <180 mg/dL all other times of the day Specimen Anatomical Collection Method Collection Time Receive d Time (Source) Location / / Volume Laterality Blood 12/08/2021 8:22 PM 2 8:22 EDT PM EDT Iker Cuevas MD POINT OF CARE TEST ORDERABLE S Performing Organization Address City/[facility]/ZIP Code Phon e Number [address] (ABNORMAL) POCT Glucose (12/08/2021 7:06 PM EDT) athologist Signature POC Glucose 442 (H) 65 - 199 [facility] mg/dL [facility] LABORATORY Comment: Supplemental ranges: <140 mg/dL before meals <180 mg/dL all other times of the day Specimen Anatomical Collection Method Collection Time Receive d Time (Source) Location / / Volume Laterality Blood 12/08/2021 7:06 PM 2 7:06 EDT PM EDT Iker Cuevas MD POINT OF CARE TEST ORDERABLE S Performing Organization Address City/[facility]/[place] [address] Magnesium (12/08/2021 6:02 PM EDT) athologist Signature Magnesium 0.86 0.69 - 1.07 [facility] mmol/L [facility] LABORATORY Specimen Anatomical Collection Method Collection Time Receive d Time (Source) Location / / Volume Laterality Blood 12/08/2021 6:02 PM 2 6:36 EDT PM EDT Resulting Agency Comment Spec In Lab Iker Cuevas MD CHEMISTRY ORDERABLES Performing Organization Address City/[facility]/[place] [address] (ABNORMAL) Basic Metabolic Panel (non-fasting) (12/08/2021 6:02 PM EDT) athologist Signature Glucose Lvl 392 (H) 65 - 199 [facility] mg/dL [facility] LABORATORY [...] 107 mmol/L [facility] LABORATORY CO2 20 (L) 22 - 31 mmol/L [facility] LABORATORY Anion Gap 16 (H) 5 - 15 mmol/L [facility] LABORATORY Calcium 8.6 8.5 - 10.5 mg/dL [facility] LABORATORY Estimated GFR 47 (L) >=60 mL/min/1.73 m?? [facility] [...] Organization Address City/State/[place] [address] (ABNORMAL) Differential, Automated (12/08/2021 6:02 PM EDT) [facility] gist Method Time Signature Neutrophils % 89.5 % [facility] LABORATORY Neutr Abs (ANC) 13.97 (H) 1.70 - [facility] 6.10 [facility] x10(3)/[facility] L LABORATORY Lymphocytes % 3.7 % [facility] LABORATORY Lymphocytes Abs 0.6 (L) 0.9 - 3.2 [facility] x10(3)/[facility] LABORATORY Monocytes % 6.1 % [facility] LABORATORY Monocyte Abs 1.0 (H) 0.3 - 0.9 [facility] x10(3)/[facility] LABORATORY Eosinophils % 0.0 % [facility] LABORATORY Eosinophils Abs 0.0 0.0 - 0.4 [facility] x10(3)/[facility] LABORATORY Basophils % 0.2 % [facility] LABORATORY Basophils Abs 0.0 0.0 - 0.1 [facility] x10(3)/[facility] LABORATORY Immature Gran % 0.50 % [facility] [...] Organization Address City/State/[place] [address] (ABNORMAL) Hemogram (12/08/2021 6:02 PM EDT) Analysis Performed At Patho logist Time Signature WBC 15.6 (H) 4.0 - 9.5 [facility] x10(3)/[facility] LABORATORY RBC 4.05 (L) 4.58 - [facility] 5.54 [facility] x10(6)/[facility] LABORATORY Hemoglobin 11.8 (L) 13.7 - [facility] 16.5 g/dL [facility] LABORATORY Hematocrit 35.8 (L) 40.5 - [facility] 48.5 % [facility] LABORATORY MCV 88.4 82.9 - [facility] 93.1 [facility] LABORATORY MCH 29.1 27.5 - [facility] 32.1 pg [facility] LABORATORY MCHC 33.0 32.0 - [facility] 35.7 g/dL [facility] LABORATORY Platelets 178 145 - 357 [facility] x10(3)/[facility] LABORATORY RDWSD 49.3 (H) 36.0 - [facility] 45.0 [facility] LABORATORY RDWCV 15.1 (H) 11.4 - [place] 13.8 % [facility] LABORATORY MPV 10.4 7.6 - 12.9 [facility] fL [facility] LABORATORY nRBC % Auto 0.0 % [facility] LABORATORY nRBC Abs Auto 0.000 0.000 - [facility] 0.000 [facility] x10(3)/[facility] LABORATORY Specimen Anatomical Collection Method Collection Time Receive d Time (Source) Location / / Volume Laterality Blood 12/08/2021 6:02 PM 6:36 EDT PM EDT Resulting Agency Comment Spec In Lab Morgan BROWN HEMATOLOGY ORDERABLES Performing Organization Address City/State/[place] [address] (ABNORMAL) Troponin (12/08/2021 6:02 PM EDT) P athologist Signature Troponin-T 0.89 (H) 0.00 - [facility] 0.00 ng/mL [facility] LABORATORY Comment: The 99th percentile [...] additional sample may be indicated. Reference: Third Montegut Definition of Myocardial Infarction. Journal of the [place] [employer] 2012;60:1581-98 Specimen Anatomical Collection Method Collection Time Receive d Time (Source) Location / / Volume Laterality Blood 12/08/2021 6:02 PM 6:36 EDT PM EDT Resulting Agency Comment Spec In Lab Iker Cuevas MD CHEMISTRY ORDERABLES Performing Organization Address City/State/ZIP Code Phon e Number [place] [id number]OS[address] COVID-19 PCR (12/08/2021 5:00 [...] using the Simplexa COVID-19 Direct Assay by TagArray as authorized by the FDA issued Emergency [...] fact sheets at the following FDA website: https://www.fda.gov/medical-devices/ynuckgbmrnb-utkbduo-4602-qssfv-64-rkmnmqbql- ukf-ieqedkbzyvvgiq-zchuezi-devices/tfxkp-fhtuirsodyu-dthe SARS-CoV-2 Source HIP HOP DANCER Swab [facility] LABORATORY Specimen (Source) Anatomical Collection Method Collection Time Re ceived Time Location / / Volume Laterality Nasopharyngeal Swab 12/08/2021 5:00 12/08 PM EDT 6:03 PM EDT Comment: Symptoms->Surveillance Resulting Agency Comment Spec In Lab Iker Cuevas MD MICROBIOLOGY - GENERAL ORDER [place] Performing Organization Address City/State/[place] [address] EKG 12 Lead (12/08/2021 4:40 PM EDT) Component Value Ref Range Test Analysis Performed Pathologis t Method Time At Signature Ventricular rate 78 BPM MUSE SYSTEM Atrial Rate 78 BPM MUSE SYSTEM P-R Interval 152 ms MUSE SYSTEM QRS Duration 96 ms MUSE SYSTEM Q-T Interval 396 ms MUSE SYSTEM QTC Calculated 451 ms MUSE SYSTEM (Bezet) Calculated P [place] 44 degrees MUSE SYSTEM Calculated R [place] -31 degrees MUSE SYSTEM Calculated T [place] 124 degrees MUSE SYSTEM INTERPRETATION Normal sinus [...] (H) 65 - 199 [facility] mg/dL [facility] LABORATORY Comment: Supplemental ranges: <140 mg/dL before meals <180 mg/dL all other times of the day Specimen Anatomical Collection Method Collection Time Receive d Time (Source) Location / / Volume Laterality Blood 12/08/2021 4:34 PM 2 4:34 EDT PM EDT Iker Cuevas MD POINT OF CARE TEST ORDERABLE S Performing Organization Address City/State/[place] [address] documented in this encounter [...] Given 11/23 10:30 AM EDT 300 mcg (STITCHER STANDARD MACHINE) ONCE PRN, Starting on Wed12/10/21 at 1030, [...] mg (COMPLET ED) 1100 (Given - Provider: Anthoyn Fatima RN) 80 mg, Intravenous, ONCE, 1 [...] Provider: Emma Garcia, VAMSI)1717 (Given - Provider: mEma Garcia RN) 0001 (Given - Provider: Derrick [...] COMPLETED) 1401 (Given - Provider: Emma Garcia, VASMI) 40 mEq, Oral, ONCE, 1 dose, On Wed12/10/21 at 1245, Routine sodium chloride 0.9 % (flush) (BD PosiFlush Normal Sean ine 0.9) flush 5 mL 0805 ([facility] Hold - Provider: Admin Adt - Reason: Transfer to a Procedural area)0900 (Not Given - Provider: Emma Garcia RN - Reason: Transfer to a Procedural area)1230 ([facility] Unhold - Provider: Admin Adt)1746 (Given [...] acetaminophen (Tylenol) tablet 650 mg 0805 ([facility] Hold - Provider: Admin Adt - Reason: Transfer to a Procedural area)1230 ([facility] Unhold - Provider: Admin Adt) 650 [...] bisacodyL (Dulcolax) suppository 10 mg 0805 ([facility] Hold - Provider: Admin Adt - Reason: Transfer to a Procedural area)1230 ([facility] Unhold - Provider: Admin Adt) 10 [...] (Intra-Procedure), Routine niCARdipine (Cardene) (100 mcg/mL) dilution (STITCHER STANDARD MACHINE) (CANCELED) 1030 (Given - Provider: Vitaliy [...] Sean ine 0.9) flush 5-20 mL 804 ([facility] Hold - Provider: Admin Adt - Reason: Transfer to a Procedural area)123 ([facility] Unhold - Provider: Admin Adt) 5-20 [...] episode. & nbsp; For persistent hypoglycemia, con clinical marketing manager longer-acting treatment for the duration of [...] documented in this encounter Care Teams Hand Hide Stretcher Relationship Specialty Start Date End Date Lovely Vicente MD PCP - General 04/16/[address] [place] [address] documented as of this encounter
--- OUTSIDE RECORDS SUMMARY | 2022-04-29 08:10 | XMS_ITS | Encounter Summary ---
:1945 [place] [address] Care Team Providers Name Role Phone Lovely Vicente MD Primary Care Provider Reason for Visit Reason Comments Skin Cancer Examination Encounter Details Date Type Department Care Team Description 03/20/2021 Office Visit Dermatology at [facility] Brennen Rene MD History of melanoma; [facility] History of dysplastic nevus; [address] Multiple benign nevi; [place] [address] [facility] SK (seborrheic keratosis); [phone] RD-DERMATOLOGY [place] (actinic keratosis) [place], [place] [address] Social History Tobacco Use Types [...] no SOCIAL HISTORY 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 Last visit at [facility] Derm: 01/02/2020 Medications: Reviewed in [...] and signed by: LAURA RENE MD Dermatology [facility] documented in this encounter Plan of Treatment Upcoming Encounters Date Type Specialty Care Team Description 05/28/2022 Appointment Cardiology TrudiZulma Knowles MD [facility] [place], [place] [address] (Wo rk) 05/28/2022 Laboratory Appointment Lab 05/28/2022 Office Visit Cardiology Zulma Dolan MD [facility] [place] [address] Liz Poole PA [facility] [place] [address] 06/10/2022 Office Visit Dermatology Laura Rene MD [facility] [address]MAT [place], [place] [address] (Wo rk) documented as of this encounter Visit Diagnoses Diagnosis History of melanoma Personal history of malignant melanoma o f skin History of dysplastic nevus Personal history of diseases of skin and subcutaneous tissue Multiple benign nevi Benign neoplasm of skin, site unspecifie d SK (seborrheic keratosis) Other seborrheic keratosis [place] (actinic keratosis) Actinic keratosis documented in this encounter Care Teams Bulk Sausage Casing Tier Off Relationship Specialty Start Date End Date Lovely Vicente MD PCP - General 04/16/[address] [place] [address] documented as of this encounter
--- OUTSIDE RECORDS SUMMARY | 2022-04-29 08:10 | XMS_ITS | Encounter Summary ---
:1945 Author Organization [facility] [place] [address] Care Team Providers Name Role Phone Lovely Vicente MD Primary Care Provider Encounter Details Date Type Department Care Team Description 04/18/2018 Laboratory Appointment Lab 3L [facility] [place] [id number] Social History Tobacco Use Types Packs/Day Years [...] MD [facility] [place] [address] [place], [place] [address] (Wo rk) 05/28/2022 Laboratory Appointment Lab 05/28/2022 Office Visit Cardiology Zulma Dolan MD [facility] [place] [address] [facility] [place] [address] 06/10/2022 Office Visit Dermatology Laura Scherer MD [facility] ER DR TEJA [address] [place], [place] [address] (Wo rk) documented as of [...] Signature Total Protein 7.6 6.1 - 8.0 [facility] gm/dL [facility] Albumin 4.0 3.2 - 5.2 [facility] gm/dL [facility] AST 36 0 - 39 [facility] unit/L [facility] ALT 27 0 - 55 [place] [facility] unit/L [facility] Alk Phos 96 40 - 120 [facility] unit/L [facility] Total 0.7 0.2 - 1.[address] [place] Bilirubin mg/dL [facility] Bili, Direct 0.1 0.0 - 0.3 [facility] mg/dL [facility] Specimen Anatomical Collection Method Collection Time Receive d Time (Source) Location / / Volume Laterality Blood specimen Venous Draw / 04/18/2018 9:19 AM 2017 9:44 (specimen) Unknown EDT AM EDT Resulting Agency Comment Spec In Lab Danette Maxwell APRN CHEMISTRY ORDERABLES Performing Organization Address City/State/[place] [address] TSH (04/18/2018 9:19 AM EDT) athologist Signature TSH 1.77 0.27 - 4.20 [facility] mlU/ML [facility] Specimen Anatomical Collection Method Collection Time Receive d Time (Source) Location / / Volume Laterality Blood specimen Venous Draw / 04/18/2018 9:19 AM 2017 9:44 (specimen) Unknown EDT AM EDT Resulting Agency Comment Spec In Lab Danette Maxwell APRN CHEMISTRY ORDERABLES Performing Organization Address City/State/[place] [address] (ABNORMAL) Basic Metabolic Panel (non-fasting) (04/18/2018 9:19 AM EDT) athologist Signature Glucose Lvl 167 65 - 199 [facility] mg/dL [facility] Comment: Diabetes: [...] of body mass or the acutely ill. http://[employer]/DHMCnkf eGFR 70 >=60 mL/min/1.73 m?? [facility] Comment: The eGFR was calculated using the CKD-EP I equation. As with all creatinine based estimates of kidney function, eGFR values calculated with the CKD-EPI equation are not accurate in patients wi th acute kidney failure, extremes of body mass or the acutely ill. http://[employer]/DHnkf Specimen Anatomical Collection Method Collection Time Receive d Time (Source) Location / / Volume Laterality Blood specimen 04/18/2018 9:19 AM 018 9:34 (specimen) EDT AM EDT Resulting Agency Comment Spec In Lab Danette Maxwell APRN CHEMISTRY ORDERABLES Performing Organization Address City/[facility]/[place] [address] (ABNORMAL) pro-Brain Natriuretic Peptide (04/18/2018 9:19 AM EDT) P athologist Signature ProBNP 2,199 (H) <=125 [facility] pg/mL [facility] Specimen Anatomical Collection Method Collection Time Receive d Time (Source) Location / / Volume Laterality Blood specimen 04/18/2018 9:19 AM 018 9:34 (specimen) EDT AM EDT Resulting Agency Comment Spec In Lab Danette Maxwell APRN CHEMISTRY ORDERABLES Performing Organization Address City/[facility]/[place] [address] documented in this encounter Visit Diagnoses Diagnosis Chronic systolic heart failure documented in this encounter Care Teams Pin Drafter Operator Relationship Specialty Start Date End Date Lovely Vicente MD PCP - General 04/16/[address] [place] [address] documented as of this encounter
--- OUTSIDE RECORDS SUMMARY | 2022-04-29 08:10 | XMS_ITS | Encounter Summary ---
:1945 Author Organization [facility] [place] [address] Care Team Providers Name Role Phone Lovely Vicente MD Primary Care Provider Reason for Visit Reason Comments Skin Check Encounter Details Date Type Department Care Team Description 07/06/2018 Office Visit Dermatology at [facility], Rigoberto Yarbrough (actinic keratosis); MD SHAY Quick III (seborrheic keratosis); [address] [facility] History of melanoma; [place] [address] Skin exam for malignant neoplasm [phone] [facility]-DERMATOLGY [place], [place] [address] Social History Tobacco Use Types [...] Zulma Dolan MD [facility] [address] [place], [place] [address] (Wo rk) 05/28/2022 Laboratory Appointment Lab 05/28/2022 Office Visit Cardiology Zulma Dolan MD [facility] [place] [address] Liz Poole PA [facility] [place] [address] 06/10/2022 Office Visit Dermatology Laura Scherer MD [facility] DR [address]DERMAT [place]LOG[place], [place] [address] (Wo rk) documented as of this encounter Visit Diagnoses Diagnosis [place] (actinic keratosis) Actinic keratosis [place] (seborrheic keratosis) Other seborrheic keratosis History of melanoma Personal history of malignant melanoma o f skin Skin exam for malignant neoplasm Screening for malignant neoplasm of the skin documented in this encounter Care Teams Park Manager Relationship Specialty Start Date End Date Lovely Vicente MD PCP - General 04/16/[address] [place] [address] documented as of this encounter
--- OUTSIDE RECORDS SUMMARY | 2022-04-29 08:10 | XMS_ITS | Encounter Summary ---
:1945 Author Organization [place] [address] Care Team Providers Name Role Phone Lovely Vicente MD Primary Care Provider Encounter Details Date Type Department Care Team Description 04/16/2021 Laboratory Appointment Lab 3L [facility] [place] [phone] Social History Tobacco Use Types Packs/Day Years [...] [facility] [place], [place] [address] (Wo rk) 05/28/2022 Laboratory Appointment Lab 05/28/2022 Office Visit Cardiology Zulma Dolan MD [facility] [place] [address] Liz Poole PA [facility] [place] [address] 06/10/2022 Office Visit Dermatology Laura Scherer MD [facility] ER DR [address] [place], [place] [address] (Wo rk) documented as of this encounter [...] athologist Signature ProBNP 523 (H) <=124 pg/mL [facility] Specimen Anatomical Collection Method Collection Time Receive d Time (Source) Location / / Volume Laterality Blood 04/16/2021 9:58 AM EDT 10:02 AM EDT Resulting Agency Comment Spec In Lab Zulma Plunkett MD CHEMISTRY ORDERABLES Performing Organization Address City/State/[place] [address] (ABNORMAL) Basic Metabolic Panel (non-fasting) (04/16/2021 9:58 AM EDT) athologist Signature Glucose Lvl 77 65 - 199 [facility] mg/dL [facility] Comment: [...] estions. Chloride 103 98 - 107 mmol/L [facility] CO2 28 22 - 31 mmol/L [facility] Anion Gap 9 5 - 15 mmol/L [facility] Calcium 9.3 8.5 - 10.5 mg/dL [facility] Estimated GFR 55 (L) >=60 mL/min/1.73 m?? [facility] [...] Organization Address City/State/Z[place] [address] documented in this encounter Visit Diagnoses Diagnosis Chronic systolic heart failure documented in this encounter Care Teams Factory Maintenance Technician Relationship Specialty Start Date End Date Lovely Vicente MD PCP - General 04/16/[address] [place] [address] documented as of this encounter
--- OUTSIDE RECORDS SUMMARY | 2022-04-29 08:10 | XMS_ITS | Encounter Summary ---
:1945 Author Organization [facility] [place] [address] Care Team Providers Name Role Phone Lovely Vicente MD Primary Care Provider Reason for Visit Reason Comments Establish Care Atrial Fibrillation Congestive Heart Failure Cardiomyopathy Encounter Details Date Type Department Care Team Description 09/06/2019 [facility] Ischemic cardiomyopathy Osvaldo STRANGE [address] [facility] [address] [place], [place] CARDIOLOGY DEPT. [address] [place] [address] [phone] Social History Tobacco Use Types Packs/Day Years [...] today For any questions, call my office: [phone] To access your health care information, go to the web at: [email or web address] (you will need to register) For educational materials: [email or web address] Karel TRAMMELL.[facility], Clinical Cardiac Electrophysiology, [facility], [facility] A Healthy Heart: After Your Visit [...] least 2 servings of fish a week. Mack, mackerel, mcfadden, sardines, and chunk light tuna [...] irregular heartbeat. After you call 911, the payroll machine operator may tell you to chew [...] more? Visit our health information library at [email or web address]. You can also view health information on [employer], your personal patient account. Log in or sign up today. Enter F075 in the search box to learn more about A Healthy Heart: After Your Visit. ?? [phone] [employer] documented in this encounter Progress Notes Karel Mcelroy MD - 09/06/2019 2:20 PM EST Images from the original note were not included. Section of Cardiology/Cardiac Electrophysiology [facility] Clinical Cardiac Electrophysiology Consult Patient ID Don Fatima 1945 [id number] Don Fatima is referred to the EP clinic by Danette Maxwell APRN PhD Chief Complaint Dyspnea on exertion Ischemic cardiomyopathy History This is a 74 y.o. male following up/being seen in clinic for evaluation for ongoing anticoagulation. He has a Hfesl1Azdb score of ~ 6-7. 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, can [...] on phone: None Gets together: None Attends roman catholic service: None Active member of club or [...] reviewed the ECG: sinus rhythm, 72 bpm, ME 140 ms, QRS 100 ms, QT 400 [...] EP clinic KAREL MCELROY MD Cardiac Electrophysiology [facility] T: [phone] F: [phone] minutes of this 40 minute encounter were spent in counselling, as described above Cc: MD Danette Cr APRN PhD Janett Espino DPM documented in this encounter Plan of Treatment Upcoming Encounters Date Type Specialty Care Team Description 05/28/2022 Appointment Cardiology Zulma Dolan MD [facility] [place], [place] [address] (Wo rk) 05/28/2022 Laboratory Appointment Lab 05/28/2022 Office Visit Cardiology Zulma Dolan MD [facility] [place] [address] Liz Poole PA [facility] [place] [address] 06/10/2022 Office Visit Dermatology Laura Scherer MD [facility] DR [address]MAT [place], [place] [address] (Wo rk) documented as [...] 446 ms MUSE SYSTEM (Bezet) Calculated P Gary 37 degrees MUSE SYSTEM Calculated R Gary -23 degrees MUSE SYSTEM Calculated T Gary 116 degrees MUSE SYSTEM INTERPRETATION Normal sinus rhythm MUSE SYSTEM Inferior infarct (cited on or before 25-JAN-2013) ST & T wave abnormality, consider anterolateral ischemia Abnormal ECG When compared with ECG of 19-AUG-2017 10:23, No significant change was found Confirmed by MD Cande, Michael ([id number]) on 09/08/2019 10:22:4 7 AM Specimen Anatomical [...] disease documented in this encounter Care Teams Auto Body Repairer Fiberglass Relationship Specialty Start Date End Date Lovely Vicente MD PCP - General 04/16/[address] [place] [address] documented as of this encounter
--- OUTSIDE RECORDS SUMMARY | 2022-04-29 08:10 | XMS_ITS | Encounter Summary ---
:1945 Author Organization [facility] Address [facility] [place] [address] Care Team Providers Name Role Phone Lovely Vicente MD Primary Care Provider Reason for Referral Diagnostic Test (Routine) - Closed Specialty Diagnoses / Procedures Referred By Contact Refer red To Contact Cardiology Diagnoses Chronic systolic heart failure Danette Maxwell APRN [facility] Non-Inv Card Lab Procedures Echocardiogram Transthoracic(Leb) [facility] [place] [address] [place] [address] Referral ID Status Reason Start Date Expiration Date Visits V isits Requested Authorized [id number] Closed Specialty 07/17/2019 09/14/2019 1 1 Service Requested Encounter Details Date Type Department Care Team Description 01/16/2019 Office Visit Cardiology at [facility] Danette Maxwell, Chronic systolic heart failu re; [facility] STACIE Cardiomyopathy, ischemic; Drive [facility] Hx of thyroid cancer; [place], [place] DR [place] (arteriosclerotic heart disease); [address] CARDIOLOGY MARIA VICTORIA (obstructive sleep apnea) on CPAP [phone] [place], [place] [address] (Wo rk) Social History Tobacco Use Types [...] K+ 4.6 today 6. Post-op atrial fibrillation [id number] (CHF, HTN, DM, vascular disease, thromboembolism) [...] Cardiology Zulma Dolan MD [facility] [place], [place] [address] (Wo rk) 05/28/2022 Laboratory Appointment Lab 05/28/2022 Office Visit Cardiology Zulma Dolan MD [facility] [place] [address] Liz Poole PA [facility] [place] [address] 06/10/2022 Office Visit Dermatology Laura Scherer MD [facility] DR [address]MAT OLOG[place], [place] [address] (Wo rk) documented as of this encounter Results ECHOCARDIOGRAM COMPLETE W CONTRAST (07/28/2019 8:19 AM EST) athologist Signature EF 40 [facility] Anatomical Region Laterality Modality Other Specimen (Source) Anatomical Location Collection Method / Collectio n Time Received Time / Laterality Volume 07/28/2019 Narrative 07/28/2019 8:38 AM EST Procedure: ?Transthoracic Echocardiogram Patient: ?NATALYA Mccollum ? (Age): 1945(74y) Med Rec#: ? [id number] ?Sex: ?M ? Site Loc: ? [facility] ?Ht / Wt: ??172(cm)/81(kg) Pt. Loc: ?Echo Lab ?BSA: ?1.94 Study Date: ?? 07/28/2019 ?Pt. Type: Outpatient Tape: ? Referring: MARY ELLEN Reading: Ifeanyi Truong ([id number]) Baker Doughnut: Fadumo Flanagan RDCS, REGINA Diagnosis: *Chronic systolic [...] E-wave Vmax ?1 ?m/sec ? MV deceleration nvcl142.5 ? msec ? MV A-wave Vmax ?1 [...] ? Mid-Inferior ?Hypokinetic ? Mid-Inferoseptal ?Normal ? Randolph-Septal ? Normal ? Randolph-Anterior ? Hypokinetic ? Randolph-Lateral ?Normal ? Randolph-Inferior ? Akinetic ? Randolph-Tip ?Hypokinetic ? This report has been electronically sign ed by: _ Ifeanyi Truong M.D. ? 07/28/2019 0 8:38:01 Images reviewed and interpretation [facility] Procedure Note Ifeanyi Truong MD - 07/28/2019Formatt ing of this note might be different from the original. Procedure: Transthoracic Echocardiogram Patient: NATALYA MCBRIDE(Age): [birth year]74y) Med Rec#: [id number] Sex: M Site Loc: [facility] Ht / Wt: 172(cm)/81(kg) Pt. Loc: Echo Lab BSA: 1.94 Study Date: 07/28/2019 Pt. Type: Outpati ent Tape: Referring: MARY ELLEN Reading: Ifeanyi Truong ([id number]) Baker Doughnut: Fadumo Flanagan [facility], REGINA Diagnosis: *Chronic systolic (congestive) heart [...] MV E-wave Vmax 1 m/sec MV deceleration qfob533.5 msec MV A-wave Vmax 1 m/sec MV [...] Normal Mid-Posterolateral Normal Mid-Inferior Hypokinetic Mid-Inferoseptal Normal Randolph-Septal Normal Randolph-Anterior Hypokinetic Randolph-Lateral Normal Randolph-Inferior Akinetic Randolph-Tip Hypokinetic This report has been electronically sign ed by: _ Ifeanyi Truong M.D. 07/28/2019 08:38:0 1 Images reviewed and interpretation verif ied [facility] Cardiac Ultrasound Laboratory Danette Maxwell APRN ECHO ORDERABLES (ABNORMAL) Basic Metabolic Panel (non-fasting) (01/16/2019 7:49 AM EDT) P athologist Signature Glucose Lvl 105 65 - 199 [facility] mg/dL [facility] [...] of body mass or the acutely ill. http://[email or web address] eGFR 79 >=60 mL/min/1.73 m?? [facility] Comment: The eGFR was calculated using the CKD-EP I equation. As with all creatinine based estimates of kidney function, eGFR values calculated with the CKD-EPI equation are not accurate in patients wi th acute kidney failure, extremes of body mass or the acutely ill. http://[employer] Partner/[facility] Specimen Anatomical Collection Method Collection Time Receive d Time (Source) Location / / Volume Laterality Blood specimen 01/16/2019 7:49 AM 019 7:55 (specimen) EDT AM EDT Resulting Agency Comment Spec In Lab Danette Maxwell APRN CHEMISTRY ORDERABLES Performing Organization Address City/State/[place] [address] (ABNORMAL) pro-Brain Natriuretic Peptide (01/16/2019 7:49 AM EDT) P athologist Signature ProBNP 780 (H) <=125 pg/mL [facility] Specimen Anatomical Collection Method Collection Time Receive d Time (Source) Location / / Volume Laterality Blood specimen 01/16/2019 7:49 AM 019 7:55 (specimen) EDT AM EDT Resulting Agency Comment Spec In Lab Danette Maxwell DEPUTY ASSESSOR CHEMISTRY ORDERABLES Performing Organization Address City/State/[place] [address] documented in this encounter Visit Diagnoses Diagnosis Chronic systolic heart failure Cardiomyopathy, ischemic Other specified forms of chronic ischemi c heart disease Hx of thyroid cancer Personal history of malignant neoplasm o f thyroid ASHD (arteriosclerotic heart disease) Coronary atherosclerosis of unspecified type of vessel, [place] or graft MARIA VICTORIA (obstructive sleep apnea) on CPAP Obstructive sleep apnea (adult) (pediatr ic) Chronic systolic heart failure documented in this encounter Care Teams Reaming Machine Tender Relationship Specialty Start Date End Date Lovely Vicente MD PCP - General 04/16/[address] [place] [address] documented as of this encounter
--- OUTSIDE RECORDS SUMMARY | 2022-04-29 08:10 | XMS_ITS | Encounter Summary ---
:1945 Author Organization [facility] [place] [address] Care Team Providers Name Role Phone Lovely Vicente MD Primary Care Provider Reason for Visit Reason Onset Date Comments Other 03/24/2019 cardiac clearance ne eded Encounter Details Date Type Department Care Team Description 03/24/2019 Telephone Cardiology at [facility] Danette Maxwell, Other (cardiac [facility] SOCIAL WORK MANAGER clearance needed) [place] [address] CARDIOLOGY [place], [place] [address] (Wo rk) Social History Tobacco [...] AM EDT Leonela from [facility] [place] called requesting cardiac clearance for this patient who is to have a colonoscopy on 04/04/19. He is on anticoagulation and they will need to bridge him. Their phone # [phone], fax# [phone]. Thank you. documented in this encounter Plan of Treatment Upcoming Encounters Date Type Specialty Care Team Description 05/28/2022 Appointment Cardiology Zulma Dolan MD [facility] [place], [place] [address] (Wo rk) 05/28/2022 Laboratory Appointment Lab 05/28/2022 Office Visit Cardiology Zulma Dolan MD [facility] [place] [address] Liz Poole PA [facility] [place] [address] 06/10/2022 Office Visit Dermatology Laura Scherer MD [facility] [address]DERMAT [place], [place] [address] (Wo rk) documented as of this encounter Visit Diagnoses Not on filedocumented in this encounter Care Teams Coordinator Mining Products Relationship Specialty Start Date End Date Lovely Vicente MD PCP - General 04/16/[address] [place] [address] documented as of this encounter
--- OUTSIDE RECORDS SUMMARY | 2022-04-29 08:10 | XMS_ITS | Encounter Summary ---
:1945 Author Organization [facility] [place] [address] Care Team Providers Name Role Phone Lovely Vicente MD Primary Care Provider Encounter Details Date Type Department Care Team Description 03/20/2021 Ancillary Procedure Radiology Library [place] [address] [place] [address] [phone] Social History Tobacco Use Types Packs/Day Years [...] MD [facility] er [address] [place], [place] [address] (Wo rk) 05/28/2022 Laboratory Appointment Lab 05/28/2022 Office Visit Cardiology Zulma Dolan MD [facility] [place] [address] Liz Poole PA [facility] [place] [address] 06/10/2022 Office Visit Dermatology Laura Scherer MD [facility] ER [address] [place], [place] [address] (Wo rk) documented as [...] Organization Address City/State/ZIP Code Phon e Number [place], [place] documented in this encounter Visit Diagnoses Not on filedocumented in this encounter Care Teams Aerospace Manager Relationship Specialty Start Date End Date Lovely Vicente MD PCP - General 04/16/[address] [place] [address] documented as of this encounter
--- OUTSIDE RECORDS SUMMARY | 2022-04-29 08:10 | XMS_ITS | Encounter Summary ---
:1945 Author Organization [facility] [place] [address] Care Team Providers Name Role Phone Lovely Vicente MD Primary Care Provider Encounter Details Date Type Department Care Team Description 12/07/2021 External Results Administration [facility] [place] [address] Social History Tobacco Use Types Packs/Day [...] [facility] [place] [address] [place] [address] (Wo rk) 05/28/2022 Laboratory Appointment Lab 05/28/2022 Office Visit Cardiology Zulma Dolan MD [facility] [place] [address] Liz Poole PA [facility] [place] [address] 06/10/2022 Office Visit Dermatology Laura Scherer MD [facility] ER [address] [place], [place] [address] (Wo rk) documented as of [...] on filedocumented in this encounter Care Teams Texture Artist Relationship Specialty Start Date End Date Lovely Vicente MD PCP - General 04/16/[address] [place] [address] documented as of this encounter
--- OUTSIDE RECORDS SUMMARY | 2022-04-29 08:10 | XMS_ITS | Encounter Summary ---
:1945 Author Organization [facility] [place] [address] Care Team Providers Name Role Phone Lovley Vicente MD Primary Care Provider Reason for Visit Reason Onset Date Comments Follow-up 07/13/2018 amiodarone discontin ued Encounter Details Date Type Department Care Team Description 07/13/2018 Telephone Cardiology at [facility] Martha Comer, Follow-up (amiodarone [facility] RN discontin ued) [place] [address] Social History Tobacco Use Types Packs/Day [...] RN - 07/13/2018 8:57 AM EST Per PRESS AND BLOW MACHINE TENDER Hans call placed to the home number for the pt. confirmed that the pt is still taking the amiodarone. Pt is to stop the amiodarone. Pt taking it for post op a-fib, therapy was supposed to be for 30 days. Message given to his . She will give him the message and will have him call with any questions. Call placed to the [facility] pharmacy in [place] to discontinue it there as well. Med list updated. documented in this encounter Plan of Treatment Upcoming Encounters Date Type Specialty Care Team Description 05/28/2022 Appointment Cardiology Zulma Dolan MD [facility] [address] [place], [place] [address] (Wo rk) 05/28/2022 Laboratory Appointment Lab 05/28/2022 Office Visit Cardiology Zulma Dolan MD [facility] [place] [address] Liz Poole PA [facility] [place] [address] 06/10/2022 Office Visit Dermatology Laura Scherer MD [facility] [address] [place], [place] [address] (Wo rk) documented as of this encounter Visit Diagnoses Not on filedocumented in this encounter Care Teams Twitchell Operator Relationship Specialty Start Date End Date Lovely Vicente MD PCP - General 04/16/[address] [place] [address] documented as of this encounter
--- OUTSIDE RECORDS SUMMARY | 2022-04-29 08:10 | XMS_ITS | Encounter Summary ---
:1945 Author Organization [facility] Address [facility] [place] [address] Care Team Providers Name Role Phone Lovely Vicente MD Primary Care Provider Reason for Referral Diagnostic Test (Routine) - Specialty Diagnoses / Procedures Referred By Contact Refer red To Contact Cardiology Diagnoses Chronic systolic heart failure Danette Maxwell APRN [facility] Non-Inv Card Lab Procedures Echocardiogram Transthoracic(Leb) [facility] [place] [address] [place] [address] Referral ID Status Reason Start Date Expiration Visits Visits Date Requested Authorized [id number] Specialty 08/15/2018 08/15/2018 1 1 Service Requested Encounter Details Date Type Department Care Team Description 04/18/2018 Office Visit Cardiology at [facility] Danette Maxwell Chronic systolic heart failu re; [facility] STACIE Gomes On amiodarone therapy; [facility] Ischemic cardiomyopathy; [place], [place] DR ONOFRE (arteriosclerotic cardiovascular d isease) [id number] CARDIOLOGY [phone] [place], [place] [address] Social History Tobacco Use Types Packs/Day Years [...] in this encounter Progress Notes Danette Maxwell, CORDUROY CUTTER OPERATOR - 04/18/2018 10:40 AM EDT ID [...] 10/25/2017: right popliteal-pedal bypass at [facility] ? Plan: 1. A review of [...] Dolan MD [facility] [address] [place], [place] [address] (Wo rk) 05/28/2022 Laboratory Appointment Lab 05/28/2022 Office Visit Cardiology Zulma Dolan MD [facility] [place] [address] Liz Poole PA [facility] [place] [address] 06/10/2022 Office Visit Dermatology Laura Scherer MD [facility] [address] [place], [place] [address] (Wo [...] Mccollum ? (Age): 1945(73y) Med Rec#: ? [id number] ?Sex: ?M ? Site Loc: ? [facility] ?Ht / Wt: ??172(cm)/81(kg) Pt. Loc: ?Echo Lab ?BSA: ?1.94 Study Date: ?? 08/15/2018 ?Pt. Type: Outpatient Tape: ? Referring: MARY ELLEN Reading: Scott Ortega ([id number]) Drug Safety Associate: Laura Sargent Diagnosis: *Chronic systolic (congestive) [...] E-wave Vmax ?1.2 ?m/sec ? MV deceleration [id number] ? msec ? MV A-wave Vmax ?0.7 [...] ? Mid-Inferior ?Hypokinetic ? Mid-Inferoseptal ?Hypokinetic ? Rombauer-Septal ? Akinetic ? Rombauer-Anterior ? Hypokinetic ? Rombauer-Lateral ?Akinetic ? Rombauer-Inferior ? Hypokinetic ? Rombauer-Tip ?Akinetic ? This report has been electronically sign ed by: _ Scott Ortega M.D. ? 08/15/2018 08:17:26 Images reviewed and interpretation verif ied [facility] Cardiac Ultrasound Laboratory Procedure Note Scott Ortega MD - 08/15/2018Format ting of this note might be different from the original. Procedure: Transthoracic Echocardiogram Patient: NATALYA MCBRIDE(Age): [birth year]73y) Med Rec#: [id number] Sex: M Site Loc: [facility] Ht / Wt: 172(cm)/81(kg) Pt. Loc: Echo Lab BSA: 1.94 Study Date: 08/15/2018 Pt. Type: Outpati ent Tape: Referring: MARY ELLEN Reading: Scott Ortega ([id number]) Drug Safety Associate: Laura Sargent Diagnosis: *Chronic systolic (congestive) [...] MV E-wave Vmax 1.2 m/sec MV deceleration [id number] msec MV A-wave Vmax 0.7 m/sec MV [...] Akinetic Mid-Posterolateral Akinetic Mid-Inferior Hypokinetic Mid-Inferoseptal Hypokinetic Rombauer-Septal Akinetic Rombauer-Anterior Hypokinetic Rombauer-Lateral Akinetic Rombauer-Inferior Hypokinetic Rombauer-Tip Akinetic This report has been electronically sign ed by: _ Scott Ortega M.D. 08/15/2018 08:17: 26 Images reviewed and interpretation verif ied [facility] Cardiac Ultrasound Laboratory Danette Maxwell APRN ECHO ORDERABLES (ABNORMAL) Basic Metabolic Panel (non-fasting) (04/18/2018 9:19 AM EDT) P athologist Signature Glucose Lvl 167 65 - 199 [facility] mg/dL [facility] [...] of body mass or the acutely ill. http://ezCater/[facility] eGFR 70 >=60 mL/min/1.73 m?? [facility] Comment: The eGFR was calculated using the CKD-EP I equation. As with all creatinine based estimates of kidney function, eGFR values calculated with the CKD-EPI equation are not accurate in patients wi th acute kidney failure, extremes of body mass or the acutely ill. http://ezCater/[facility] Specimen Anatomical Collection Method Collection Time Receive d Time (Source) Location / / Volume Laterality Blood specimen 04/18/2018 9:19 AM 018 9:34 (specimen) EDT AM EDT Resulting Agency Comment Spec In Lab Danette Maxwell APRN CHEMISTRY ORDERABLES Performing Organization Address City/State/ZIP [place] [address] (ABNORMAL) pro-Brain Natriuretic Peptide (04/18/2018 9:19 AM EDT) P athologist Signature ProBNP 2,199 (H) <=125 [facility] pg/mL [facility] Specimen Anatomical Collection Method Collection Time Receive d Time (Source) Location / / Volume Laterality Blood specimen 04/18/2018 9:19 AM 018 9:34 (specimen) EDT AM EDT Resulting Agency Comment Spec In Lab Danette Maxwell APRN CHEMISTRY ORDERABLES Performing Organization Address City/State/ZIP [place] [address] documented in this encounter Visit Diagnoses Diagnosis Chronic systolic heart failure On amiodarone therapy Ischemic cardiomyopathy Other specified forms of chronic ischemi c heart disease ASCVD (arteriosclerotic cardiovascular d isease) Unspecified cardiovascular disease Chronic systolic heart failure documented in this encounter Care Teams Senior Back End Java Developer Relationship Specialty Start Date End Date Lovely Vicente MD PCP - General 04/16/[address] [place] [address] documented as of this encounter
--- OUTSIDE RECORDS SUMMARY | 2022-04-29 08:10 | XMS_ITS | Encounter Summary ---
:1945 Author Organization [facility] [place] [address] Care Team Providers Name Role Phone Lovely Vicente MD Primary Care Provider Encounter Details Date Type Department Care Team Description 07/28/2019 Laboratory Appointment Lab 3L [facility] [place] [id number] Social History Tobacco Use Types Packs/Day Years [...] Dolan MD [facility] er [place], [place] [address] (Wo rk) 05/28/2022 Laboratory Appointment Lab 05/28/2022 Office Visit Cardiology Zulma Dolan MD [facility] [place] [address] Liz Poole PA [facility] [place] [address] 06/10/2022 Office Visit Dermatology Laura Scherer MD [facility] [address] [place] [address] (Wo rk) documented as of this encounter [...] [place] [address] (ABNORMAL) Basic Metabolic Panel (non-fasting) (07/28/2019 8:36 AM EST) athologist Signature Glucose Lvl 153 65 - 199 [facility] mg/dL [facility] Comment: Diabetes: [...] of body mass or the acutely ill. [email or web address] eGFR 81 >=60 mL/min/1.73 m?? [facility] Comment: The eGFR was calculated using the CKD-EP I equation. As with all creatinine based estimates of kidney function, eGFR values calculated with the CKD-EPI equation are not accurate in patients wi th acute kidney failure, extremes of body mass or the acutely ill. http://bLife/[facility] CITYnkf Specimen Anatomical Collection Method Collection Time Receive d Time (Source) Location / / Volume Laterality Blood specimen 07/28/2019 8:36 AM 020 8:46 (specimen) EST AM EST Resulting Agency Comment Spec In Lab Danette Maxwell APRN CHEMISTRY ORDERABLES Performing Organization Address City/State/[place] [address] documented in this encounter Visit Diagnoses Diagnosis Chronic systolic heart failure documented in this encounter Care Teams Baggage Porter Relationship Specialty Start Date End Date Lovely Vicente MD PCP - General 04/16/[address] [place] [address] documented as of this encounter
--- OUTSIDE RECORDS SUMMARY | 2022-04-29 08:10 | XMS_ITS | Encounter Summary ---
:1945 [place] [address] Care Team Providers Name Role Phone Lovely Vicente MD Primary Care Provider Encounter Details Date Type Department Care Team Description 04/16/2021 Office Visit Cardiology at [facility] Liz Poole, Chronic systolic heart [facility] [place] [address] Cardiology Dept [phone] [place], [place] [address] Social History Tobacco Use Types [...] 72 year old male w/ a h/o MARI AVICTORIA (not using CPAP), DM2, COPD, HTN, HLD, [...] was feeling good. 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 07/07/2019 - 07/21/2019 [facility] Health Information Assistant The patient had a minimum heart [...] K+ 5.2 today 6. Post-op atrial fibrillation [id number] (CHF, HTN, DM, vascular disease, thromboembolism) [...] Zulma Dolan MD [facility] [place], [place] [address] (Wo rk) 05/28/2022 Laboratory Appointment Lab 05/28/2022 Office Visit Cardiology Zulma Dolan MD [facility] [place] [address] Liz Poole PA [facility] [place] [address] 06/10/2022 Office Visit Dermatology Laura Scherer MD [facility] [address] [place], [place] [address] (Wo rk) documented as of this encounter Results (ABNORMAL) Basic Metabolic Panel (non-fasting) (04/16/2021 9:58 AM EDT) athologist Signature Glucose Lvl 77 65 - [address] [facility] mg/dL [facility] Comment: [...] [place] [address] (ABNORMAL) pro-Brain Natriuretic Peptide [...] [place] [address] documented in this encounter Visit Diagnoses Diagnosis Chronic systolic heart failure documented in this encounter Care Teams Asset Analyst Relationship Specialty Start Date End Date Lovely Vicente MD PCP - General 04/16/[address] [place] [address] documented as of this encounter
--- OUTSIDE RECORDS SUMMARY | 2022-04-29 08:10 | XMS_ITS | Encounter Summary ---
:1945 Author Organization [facility] [place] [address] Care Team Providers Name Role Phone Lovely Vicente MD Primary Care Provider Encounter Details Date Type Department Care Team Description 01/16/2019 Laboratory Appointment Lab 3L [facility] [place] [address] Social History Tobacco Use Types Packs/Day Years [...] [facility] [place], [place] [address] (Wo rk) 05/28/2022 Laboratory Appointment Lab 05/28/2022 Office Visit Cardiology Zulma Dolan MD [facility] [place] [address] Liz Poole PA [facility] [place] [address] 06/10/2022 Office Visit Dermatology Laura Scherer MD [facility] ER DR [address] [place], [place] [address] (Wo [...] City/State/ZIP [place] [address] (ABNORMAL) Basic Metabolic Panel (non-fasting) (01/16/2019 7:49 AM EDT) athologist Signature Glucose Lvl 105 65 - 199 [facility] mg/dL [facility] Comment: [...] of body mass or the acutely ill. http://Sofa Labs/Almindernkf eGFR 79 >=60 mL/min/1.73 m?? [facility] Comment: The eGFR was calculated using the CKD-EP I equation. As with all creatinine based estimates of kidney function, eGFR values calculated with the CKD-EPI equation are not accurate in patients wi th acute kidney failure, extremes of body mass or the acutely ill. http://Sof[employer] Labs/Almindernkf Specimen Anatomical Collection Method Collection Time Receive d Time (Source) Location / / Volume Laterality Blood specimen 01/16/2019 7:49 AM 019 7:55 (specimen) EDT AM EDT Resulting Agency Comment Spec In Lab Danette Maxwell APRN CHEMISTRY ORDERABLES Performing Organization Address City/State/ZIP [place] [address] documented in this encounter Visit Diagnoses Diagnosis Chronic systolic heart failure documented in this encounter Care Teams Cargo And Container Inspector Relationship Specialty Start Date End Date Lovely Vicente MD PCP - General 04/16/[address] [place] [address] documented as of this encounter
--- OUTSIDE RECORDS SUMMARY | 2022-04-29 08:10 | XMS_ITS | Encounter Summary ---
:1945 Author Organization [facility] [place] [address] Care Team Providers Name Role Phone Lovely Vicente MD Primary Care Provider Encounter Details Date Type Department Care Team Description 12/08/2021 External Results Non-Invasive Cardiology Lab Mar y None [facility] [place] [address] Social History Tobacco Use Types Packs/Day [...] [facility] er [place] [address] (Wo rk) 05/28/2022 Laboratory Appointment Lab 05/28/2022 Office Visit Cardiology Zulma Dolan MD [facility] [place] [address] Liz Poole PA [facility] [place] [address] 06/10/2022 Office Visit Dermatology Laura Scherer MD [facility] [address] [place], [place] [address] (Wo rk) documented as of [...] filedocumented in this encounter Care Teams Economic Analyst Relationship Specialty Start Date End Date Lovely Vicente MD PCP - General 04/16/[address] [place] [address] documented as of this encounter
--- OUTSIDE RECORDS SUMMARY | 2022-04-29 08:10 | XMS_ITS | Encounter Summary ---
:1945 Author Organization [facility] [place] [address] Care Team Providers Name Role Phone Lovely Vicente MD Primary Care Provider Encounter Details Date Type Department Care Team Description 03/20/2021 Ancillary Procedure Radiology Library [place] [address] [place] [address] [phone] Social History Tobacco Use Types Packs/Day Years [...] [facility] [place], [place] [address] (Wo rk) 05/28/2022 Laboratory Appointment Lab 05/28/2022 Office Visit Cardiology Zulma Dolan MD [facility] [place] [address] Liz Poole PA [facility] [place] [address] 06/10/2022 Office Visit Dermatology Laura Scherer MD [facility] ER [address] [place], [place] [address] (Wo rk) documented as of [...] Organization Address City/State/ZIP Code Phon e Number [place], [place] documented in this encounter Visit Diagnoses Not on filedocumented in this encounter Care Teams Lumber Scaler Relationship Specialty Start Date End Date Lovely Vicente MD PCP - General 04/16/[address] [place] [address] documented as of this encounter
--- OUTSIDE RECORDS SUMMARY | 2022-04-29 08:10 | XMS_ITS | Encounter Summary ---
:1945 Author Organization [place] [address] Care Team Providers Name Role Phone Lovely Vicente MD Primary Care Provider Reason for Referral Diagnostic Test (Routine) - Closed Specialty Diagnoses / Procedures Referred By Contact Refer red To Contact Cardiology Diagnoses Chronic systolic heart failure Danette Maxwell APRN [facility] Non-Inv Card Lab Procedures Echocardiogram Transthoracic(Leb) [place] [address] [place] [address] Referral ID Status Reason Start Date Expiration Date Visits V isits Requested Authorized [id number] Closed Specialty 07/17/2019 09/14/2019 1 1 Service Requested Reason for Visit Diagnostic Test (Routine) - Closed Specialty Diagnoses / Procedures Referred By Contact Refer red To Contact Cardiology Diagnoses Chronic systolic heart failure Danette Maxwell APRN [facility] Non-Inv Card Lab Procedures Echocardiogram Transthoracic(Leb) [facility] [place] [address] [place] [address] Referral ID Status Reason Start Date Expiration Date Visits V isits Requested Authorized [id number] Closed Specialty 07/17/2019 09/14/2019 1 1 Service Requested Encounter Details Date Type Department Care Team Description 07/28/2019 Hospital Encounter Non-Invasive Chronic s ystolic [place] [address] Social History Tobacco Use Types Packs/Day [...] MD [facility] [place], [place] [address] (Wo rk) 05/28/2022 Laboratory Appointment Lab 05/28/2022 Office Visit Cardiology Zulma Dolan [place] [address] Liz Poole PA [facility] [place] [address] 06/10/2022 Office Visit Dermatology Laura Scherer MD [facility] [address] TE[address] GR-DERMAT [place], [place] [address] (Wo rk) documented as of [...] Mccollum ? (Age): 1945(74y) Med Rec#: ? [id number] ?Sex: ?M ? Site Loc: ? [facility] ?Ht / Wt: ??172(cm)/81(kg) Pt. Loc: ?Echo Lab ?BSA: ?1.94 Study Date: ?? 07/28/2019 ?Pt. Type: Outpatient Tape: ? Referring: MARY ELLEN Reading: Ifeanyi Truong ([id number]) Dynamite Packing Machine Operator: Fadumo Flanagan RDCS, FASE Diagnosis: [...] E-wave Vmax ?1 ?m/sec ? MV deceleration auuk383.5 ? msec ? MV A-wave Vmax ?1 [...] ? Pulmonic Valve/Qp:Qs ?Value ?Units (Range) ? SD end-diastolic Vma1.1 ?m/sec ? Wall Motion: Segment Name ?Rest ? Base-Anteroseptal ?? Normal ? Base-Anterior ? Normal ? Base-Anterolateral ??Normal ? Base-Posterolateral Normal ? Base-Inferior ? Akinetic ? Base-Inferoseptal ?? Normal ? Mid-Anteroseptal ?Normal ? Mid-Anterior ?Hypokinetic ? Mid-Anterolateral ?? Normal ? Mid-Posterolateral ??Normal ? Mid-Inferior ?Hypokinetic ? Mid-Inferoseptal ?Normal ? [place]-Septal ? Normal ? [place]-Anterior ? Hypokinetic ? [place]-Lateral ?Normal ? [place]-Inferior ? Akinetic ? [place]-Tip ?Hypokinetic ? This report has been electronically sign ed by: _ Ifeanyi Truong M.D. ? 07/28/2019 0 8:38:01 Images reviewed and interpretation verif ied [facility] Cardiac Ultrasound Laboratory Procedure Note Ifeanyi Truong MD - 07/28/2019Formatt ing of this note might be different from the original. Procedure: Transthoracic Echocardiogram Patient: NATALYA MCBRIDE(Age): [birth year]74y) Med Rec#: [id number] Sex: M Site Loc: [facility] Ht / Wt: 172(cm)/81(kg) Pt. Loc: Echo Lab BSA: 1.94 Study Date: 07/28/2019 Pt. Type: Outpati ent Tape: Referring: MARY ELLEN Reading: Ifeanyi Truong ([id number]) Dynamite Packing Machine Operator: Fadumo Flanagan [facility] Diagnosis: *Chronic systolic (congestive) heart [...] MV E-wave Vmax 1 m/sec MV deceleration odoc491.5 msec MV A-wave Vmax 1 m/sec MV [...] 0.7 ratio Pulmonic Valve/Qp:Qs Value Units (Range) SD end-diastolic Vma1.1 m/sec Wall Motion: Segment Name Rest Base-Anteroseptal Normal Base-Anterior Normal Base-Anterolateral Normal Base-Posterolateral Normal Base-Inferior Akinetic Base-Inferoseptal Normal Mid-Anteroseptal Normal Mid-Anterior Hypokinetic Mid-Anterolateral Normal Mid-Posterolateral Normal Mid-Inferior Hypokinetic Mid-Inferoseptal Normal [place]-Septal Normal [place]-Anterior Hypokinetic [place]-Lateral Normal [place]-Inferior Akinetic [place]-Tip Hypokinetic This report has been electronically sign ed by: _ Ifeanyi Truong M.D. 07/28/2019 08:38:0 1 Images reviewed and interpretation elvie hwang [facility] Cardiac Ultrasound Laboratory Danette A [...] Routine documented in this encounter Care Teams Anime Designer Relationship Specialty Start Date End Date Lovely Vicente MD PCP - General 04/16/[address] [place] [address] documented as of this encounter
--- OUTSIDE RECORDS SUMMARY | 2022-04-29 08:10 | XMS_ITS | Encounter Summary ---
:1945 Author Organization [facility] [place] [address] Care Team Providers Name Role Phone Lovely Vicente MD Primary Care Provider Reason for Referral Diagnostic Test (Routine) - Specialty Diagnoses / Procedures Referred By Contact Refer red To Contact Cardiology Diagnoses Chronic systolic heart failure Danette Maxwell APRN [facility] Non-Inv Card Lab Procedures Echocardiogram Transthoracic(Leb) [facility] [place] [phone] [place] [address] Referral ID Status Reason Start Date Expiration Visits Visits Date Requested Authorized [id number] Specialty 08/15/2018 08/15/2018 1 1 Service Requested Reason for Visit Diagnostic Test (Routine) - Specialty Diagnoses / Procedures Referred By Contact Nawaf owen To Contact Cardiology Diagnoses Chronic systolic heart failure Danette Maxwell APRN [facility] Non-Inv Card Lab Procedures Echocardiogram Transthoracic(Leb) [facility] [place] [address] [place] [address] Referral ID Status Reason Start Date Expiration Visits Visits Date Requested Authorized [id number] Specialty 08/15/2018 08/15/2018 1 1 Service Requested Encounter Details Date Type Department Care Team Description 08/15/2018 Hospital Encounter Non-Invasive Danette Maxwell Chron ic systolic Cardiology Lab Barbara Gomes APRN heart failure [facility] [place] [address] [place] [phone] [address] (Work) [phone] Social History Tobacco Use Types Packs/Day Years [...] Zulma Dolan MD [facility] [place], [place] [address] (Wo rk) 05/28/2022 Laboratory Appointment Lab 05/28/2022 Office Visit Cardiology Zulma Dolan MD [facility] [place] [address] Liz Poole PA [facility] [place] [address] 06/10/2022 Office Visit Dermatology Laura Scherer MD [facility] DR TE[address]MAT [place], [place] [address] (Wo rk) documented as [...] Mccollum ? (Age): 1945(73y) Med Rec#: ? [id number] ?Sex: ?M ? Site Loc: ? [facility] ?Ht / Wt: ??172(cm)/81(kg) Pt. Loc: ?Echo Lab ?BSA: ?1.94 Study Date: ?? 08/15/2018 ?Pt. Type: Outpatient Tape: ? Referring: MARY ELLEN Reading: Scott Ortega ([id number]) Concrete Boom Pump Operator: Laura Sargent Diagnosis: *Chronic systolic (congestive) [...] E-wave Vmax ?1.2 ?m/sec ? MV deceleration otsh122.4 ? msec ? MV A-wave Vmax ?0.7 [...] ? Mid-Inferior ?Hypokinetic ? Mid-Inferoseptal ?Hypokinetic ? [place]-Septal ? Akinetic ? [place]-Anterior ? Hypokinetic ? [place]-Lateral ?Akinetic ? [place]-Inferior ? Hypokinetic ? [place]-Tip ?Akinetic ? This report has been electronically sign ed by: _ Scott Ortega M.D. ? 08/15/2018 08:17:26 Images reviewed and interpretation ver ied [facility] Cardiac Ultrasound Laboratory Procedure Note Scott Ortega MD - 08/15/2018Format ting of this note might be different from the original. Procedure: Transthoracic Echocardiogram Patient: NATALYA MCBRIED(Age): [birth year]73y) Med Rec#: [id number] Sex: M Site Loc: [facility] Ht / Wt: 172(cm)/81(kg) Pt. Loc: Echo Lab BSA: 1.94 Study Date: 08/15/2018 Pt. Type: Outpati ent Tape: Referring: MARY ELLEN Reading: Scott Ortega ([id number]) Concrete Boom Pump Operator: Laura Sargent Diagnosis: *Chronic systolic (congestive) [...] MV E-wave Vmax 1.2 m/sec MV deceleration vlxr734.4 msec MV A-wave Vmax 0.7 m/sec MV [...] Akinetic Mid-Posterolateral Akinetic Mid-Inferior Hypokinetic Mid-Inferoseptal Hypokinetic [place]-Septal Akinetic [place]-Anterior Hypokinetic [place]-Lateral Akinetic [place]-Inferior Hypokinetic [place]-Tip Akinetic This report has been electronically sign ed by: _ Scott Ortega M.D. 08/15/2018 08:17: 26 Images reviewed and interpretation verif ied [facility] Cardiac Ultrasound Laboratory Danette A Hans FREEZER PERSON ECHO ORDERABLES documented in this encounter Visit [...] Routine documented in this encounter Care Teams Security Shift Manager Relationship Specialty Start Date End Date Lovely Vicente MD PCP - General 04/16/[address] [place] [address] documented as of this encounter
--- OUTSIDE RECORDS SUMMARY | 2022-04-29 08:10 | XMS_ITS | Encounter Summary ---
:1945 Author Organization [facility] [place] [address] Care Team Providers Name Role Phone Lovely Vicente MD Primary Care Provider Encounter Details Date Type Department Care Team Description 12/07/2021 Telephone Cardiology Eddi Briceño Jr., [facility] [place] [address] [facility] [phone] CARDIOLOGY DEPT [place], [place] [address] (Wo rk) Social History Tobacco [...] the OSH ED provider/staff member. Referring Location: [facility] Referring Provider: Marisela Dean, LEARNING SPECIALIST [address] [place] [address] Don Veda Kushal 76 y.o. w / [...] bpm, LAFB, poor R wave progression, septal TX, and lateral STD, overall no significantchange from [...] MD [facility] [place] [address] Liz Poole PA [facility] [place] [address] 06/10/2022 Office Visit Dermatology Laura Scherer MD [facility] DR [address]MAT [place], [place] [address] (Wo rk) documented as of this encounter Visit Diagnoses Not on filedocumented in this encounter Care Teams Shale Planer Operator Helper Relationship Specialty Start Date End Date Lovely Vicente MD PCP - General 04/16/15 [facility] [address] [place] [address] documented as of this encounter
--- OUTSIDE RECORDS SUMMARY | 2022-04-29 08:10 | XMS_ITS | Encounter Summary ---
:1945 [place] [address] Care Team Providers Name Role Phone Lovely Vicente MD Primary Care Provider Encounter Details Date Type Department Care Team Description 07/12/2019 Office Visit Dermatology at [facility] Garcia, Rigoberto Yarbrough (actinic keratosis); MD SHAY Quick III (seborrheic keratosis); [address] [facility] Multiple benign nevi; [place] [address] History of melanoma [phone] [facility]-DERMATOLGY [place], [place] [address] Social History Tobacco Use Types [...] Dolan MD [facility] Dr [place], [place] [address] (Wo rk) 05/28/2022 Laboratory Appointment Lab 05/28/2022 Office Visit Cardiology Zulma Dolan MD [facility] [place] [place] [address] Liz Poole PA [facility] [place] [address] 06/10/2022 Office Visit Dermatology Laura Scherer MD [facility] DR [address] [place], [place] [address] (Wo rk) documented as of this encounter Visit Diagnoses Diagnosis AK (actinic keratosis) Actinic keratosis SK (seborrheic keratosis) Other seborrheic keratosis Multiple benign nevi Benign neoplasm of skin, site unspecifie d History of melanoma Personal history of malignant melanoma o f skin documented in this encounter Care Teams Tile And Mottle Supervisor Relationship Specialty Start Date End Date Lovely Vicente MD PCP - General 04/16/15 [facility] [address] [place] [address] documented as of this encounter
--- OUTSIDE RECORDS SUMMARY | 2022-04-29 08:10 | XMS_ITS | Encounter Summary ---
:1945 [place] [address] Care Team Providers Name Role Phone Lovely Vicente MD Primary Care Provider Encounter Details Date Type Department Care Team Description 12/07/2021 Ancillary Procedure Rad[facility] at [facility] Lovely murillo MD [facility] [address] [address] [place], [place] [phone] (Wo lissa) [address] [phone] Social History Tobacco Use Types Packs/Day Years [...] Dolan [place] [address] Liz Poole PA [facility] [place] [address] 06/10/2022 Office Visit Dermatology Laura Scherer MD [facility] DR [address]DERMAT [place], [place] [address] (Wo rk) documented as of [...] City/State/ZIP Code Phon e Number [place], [place] documented in this encounter Visit Diagnoses Not on filedocumented in this encounter Care Teams Golf Cart Repairer Relationship Specialty Start Date End Date Lovely Vicente MD PCP - General 04/16/[address] [place] [address] documented as of this encounter
--- OUTSIDE RECORDS SUMMARY | 2022-04-29 08:10 | XMS_ITS | Encounter Summary ---
:1945 [place] [address] Care Team Providers Name Role Phone Lovely Vicente MD Primary Care Provider Encounter Details Date Type Department Care Team Description 08/15/2018 Laboratory Appointment Lab 3L [facility] [place] [address] Social History Tobacco Use Types Packs/Day [...] [facility] [place], [place] [address] (Wo rk) 05/28/2022 Laboratory Appointment Lab 05/28/2022 Office Visit Cardiology Zulma Dolan MD [facility] [place] [address] Liz Poole PA [facility] [place] [address] 06/10/2022 Office Visit Dermatology Laura Scherer MD [facility] ER DR TEJA GR[address]DERMAT [place], [place] [address] (Wo rk) documented as of this encounter Procedures Procedure Name Priority Date/Time Associated Diagnosis Comme nts PROTHROMBIN TIME Routine 08/15/2018 8:04 AM Resul ts for this EST procedure are i n the results section. documented in this encounter Results (ABNORMAL) Prothrombin Time (08/15/2018 8:04 AM EST) P athologist Signature PT 24.0 (H) 9.4 - 12.5 [facility] LABORATORY INR 2.1 [facility] [...] Organization Address City/State/[place] [address] documented in this encounter Visit Diagnoses Not on filedocumented in this encounter Care Teams Pigs Feet Cleaner Relationship Specialty Start Date End Date Lovely Vicente MD PCP - General 04/16/[address] [place] [address] documented as of this encounter
--- OUTSIDE RECORDS SUMMARY | 2022-04-29 08:10 | XMS_ITS | Encounter Summary ---
:1945 Author Organization [facility] [place] [address] Care Team Providers Name Role Phone Lovely Vicente MD Primary Care Provider Encounter Details Date Type Department Care Team Description 11/07/2019 TH Visit Cardiology at [facility] Danette Maxwell (arteriosclerotic heart disease); (TeleHealth) [facility] STACIE Gomes Cardiomyopathy, ischemic; Drive [facility] S/P CABG x 3; [place], [place] MARIA VICTORIA (obstructive sleep apnea) on CPAP [address] CARDIOLOGY [phone] [place], [place] [address] Social History Tobacco Use Types [...] regurgitation present. 07/07/2019 - 07/21/2019 Zio Patch Web Editor The patient had a minimum heart rate [...] at last check 6. Post-op atrial fibrillation [id number] (CHF, HTN, DM, vascular disease, thromboembolism) Amiodarone discontinued Continue coumadin INR managed by PCP 7. PAD 08/06/2017: Right 1st, 2nd, 3rd toe amputation 08/11/2017: Left??femoral arterial access, RLE??angiogram, Balloon angioplasty of R PT with Eleazar 2.5 x 80 10/25/2017: right popliteal-pedal bypass at [facility] Continue Coumadin 8. Hypothyrodism S/p thyroidectomy for [...] Cardiology Zulma Dolan MD [facility] [place], [place] [address] (Wo rk) 05/28/2022 Laboratory Appointment Lab 05/28/2022 Office Visit Cardiology Zulma Dolan MD [facility] [place] [address] Liz Poole PA [facility] [place] [address] 06/10/2022 Office Visit Dermatology Laura Scherer MD [facility] [address] [place], [place] [address] (Wo [...] ic) documented in this encounter Care Teams Fire Code Inspector Relationship Specialty Start Date End Date Lovely Vicente MD PCP - General 04/16/[address] [place], [place] [address] documented as of this encounter
--- OUTSIDE RECORDS SUMMARY | 2022-04-29 08:10 | XMS_ITS | Encounter Summary ---
:1945 Author Organization [facility] [place] [address] Care Team Providers Name Role Phone Lovely Vicente MD Primary Care Provider Encounter Details Date Type Department Care Team Description 03/20/2021 Ancillary Procedure Radiology Library [place] [address] [place] [address] [phone] Social History Tobacco Use Types Packs/Day Years [...] [facility] [place], [place] [address] (Wo rk) 05/28/2022 Laboratory Appointment Lab 05/28/2022 Office Visit Cardiology Zulma Dolan [place] [address] Liz Poole PA [facility] [place] [address] 06/10/2022 Office Visit Dermatology Laura Scherer MD [facility] ER DR [address]MAT [place], [place] [address] (Wo rk) documented as of [...] Organization Address City/State/ZIP Code Phon e Number [place], [place] documented in this encounter Visit Diagnoses Not on filedocumented in this encounter Care Teams Pointing Machine Operator Relationship Specialty Start Date End Date Lovely Vicente MD PCP - General 04/16/[address] [place] [address] documented as of this encounter
--- OUTSIDE RECORDS SUMMARY | 2022-04-29 08:10 | XMS_ITS | Encounter Summary ---
:1945 Author Organization [facility] Address [facility] [place] [address] Care Team Providers Name Role Phone Lovely Vicente MD Primary Care Provider Encounter Details Date Type Department Care Team Description 01/02/2020 Office Visit Dermatology at Rigoberto Forman ctinic keratoses; Abdelrahman HOOPER MD History of melanoma; [address] [facility] History of dysplastic nevus; [place] [address] Multiple benign nevi; [phone] [facility] Seborrheic yossi [place]; RD-DERMATOLGY Skin exam for malignant neoplasm [place], [place] [address] Social History Tobacco Use [...] Specialty Care Team Description 05/28/2022 Appointment Cardiology Zulam Dolan MD [facility] Dr [place], [place] [address] (Wo lissa) 05/28/2022 Laboratory Appointment Lab 05/28/2022 Office Visit Cardiology Zulma Dolan MD [facility] [place] [address] Liz Poole PA [facility] [place] [address] 06/10/2022 Office Visit Dermatology Laura Scherer MD [facility] DR [address] [place], [place] [address] (Wo lissa) documented as of [...] skin documented in this encounter Care Teams Supply Planner Relationship Specialty Start Date End Date Lovely Vicente MD PCP - General 04/16/15 [facility] [address] [place] [address] documented as of this encounter
--- OUTSIDE RECORDS SUMMARY | 2022-04-29 08:10 | XMS_ITS | Encounter Summary ---
:1945 Author Organization [facility] [place] [address] Care Team Providers Name Role Phone Lovely Vicente MD Primary Care Provider Encounter Details Date Type Department Care Team Description 02/19/2020 Telephone Dermatology at [facility] Ariana Wilder LPN [address] [place] [address] Social History Tobacco Use Types Packs/Day [...] Zulma Dolan MD [facility] [place], [place] [address] (Wo rk) 05/28/2022 Laboratory Appointment Lab 05/28/2022 Office Visit Cardiology Zulma Dolan MD [facility] [place] [address] Liz Poole PA [facility] [place] [address] 06/10/2022 Office Visit Dermatology Laura Scherer MD [facility] DR [address] [place], [place] [address] (Wo rk) documented as of this encounter Visit Diagnoses Not on filedocumented in this encounter Care Teams Criminal Investigator Customs Relationship Specialty Start Date End Date Lovely Vicente MD PCP - General 04/16/[address] [place] [address] documented as of this encounter
--- OUTSIDE RECORDS SUMMARY | 2022-04-29 08:10 | XMS_ITS | Encounter Summary ---
:1945 Author Organization [facility] [address] Care Team Providers Name Role Phone Lovely Vicente MD Primary Care Provider Encounter Details Date Type Department Care Team Description 08/15/2018 Office Visit Cardiology at [facility] Danette Maxwell Chronic systolic heart failu re; [facility] A, CHECK PILOT Cardiomyopathy, ischemic; [facility] ASCVD (arteriosclerotic card iovascular disease); [place], [place] Essential hypertension; [phone] CARDIOLOGY MARIA VICTORIA on CPAP [phone] [place], [place] [address] Social History Tobacco Use Types [...] in this encounter Progress Notes Danette Maxwell, CHECK PILOT - 08/15/2018 9:00 AM EST Images from [...] K+ 4.6 today 6. Post-op atrial fibrillation [id number] (CHF, HTN, DM, vascular disease, thromboembolism) Amiodarone discontinued Continue coumadin INR managed by PCP. 2.1 today 7. PAD 08/06/2017: Right 1st, 2nd, 3rd toe amputation 08/11/2017: Left??femoral arterial access, RLE??angiogram, Balloon angioplasty of R PT with Eleazar 2.5 x 80 10/25/2017: right popliteal-pedal bypass at [facility] 8. Hypothyrodism S/p thyroidectomy for goiter [...] [facility] [address] [place] [address] (Wo rk) 05/28/2022 Laboratory Appointment Lab 05/28/2022 Office Visit Cardiology Zulma Dolan MD [facility] [place] [address] Liz Poole PA [facility] [place] [address] 06/10/2022 Office Visit Dermatology Laura Scherer MD [facility] ER DR [address]DERMAT OLOGY [place], [place] [address] (Wo rk) documented as of this encounter Results Lipid Panel (08/15/2018 8:04 AM EST) athologist Signature Chol, Total 75 mg/dL [facility] Comment: Lower Risk: <200 mg/dL Average Risk: 200-239 mg/dL Higher Risk: >fl=685 mg/dL Triglycerides 185 mg/dL [facility] Comment: Average Risk/Lower Risk: <150 mg/dL Borderline High Risk: 150-199 mg/dL High Risk: 200-499 mg/dL Very High Risk: >hd=257 mg/dL HDL 32 mg/dL [facility] Comment: Males: ?? Higher Risk: <40 mg/dL Females: ?? HIgher Risk: <50 mg/dL LDL Cholesterol 6 mg/dL [facility] Comment: Lowest Risk: <100 mg/dL Lower Risk: 100-129 mg/dL Borderline High Risk: 130-159 mg/dL High Risk: 160-189 mg/dL Very High Risk: >va=008 mg/dL Chol/HDL Ratio 2.3 ratio [facility] Lipid Interpretation See Note [facility] Comment: Lipid management should be guided by a p atient? s ASCVD risk, goals and preferences. ACC/AHA Guidelines recommend high intens ity statin if clinical ASCVD or LDL greater than or equal to 190 mg/dL. http://[email or web address].[email or web address]/BQZ-LRX-Rvdpohhkh Adults aged 40-75 with LDL 70-189 mg/dL should have their 10 year ASCVD risk estimated with the ACC/AHA ASCVD risk es timator http://tools.acc.org/LWWZM-Cakl-Vrorgqjs r/ Statin should be discussed if risk [...] Organization Address City/State/[place] [address] (ABNORMAL) Basic Metabolic Panel (non-fasting) (08/15/2018 8:04 AM EST) P athologist Signature Glucose Lvl 116 65 - 199 [facility] mg/dL [facility] [...] of body mass or the acutely ill. http://CHARMS PPEC/[facility]SAnkf eGFR 79 >=60 mL/min/1.73 m?? [facility] Comment: The eGFR was calculated using the CKD-EP I equation. As with all creatinine based estimates of kidney function, eGFR values calculated with the CKD-EPI equation are not accurate in patients wi th acute kidney failure, extremes of body mass or the acutely ill. http://CHARMS PPEC/[facility]SAnkf Specimen Anatomical Collection Method Collection Time Receive d Time (Source) Location / / Volume Laterality Blood specimen 08/15/2018 8:04 AM 019 8:20 (specimen) EST AM EST Resulting Agency Comment Spec In Lab Danette Maxwell APRN CHEMISTRY ORDERABLES Performing Organization Address City/State/ZIP Code Phon e Number [address] (ABNORMAL) pro-Brain Natriuretic Peptide (08/15/2018 8:04 AM EST) P athologist Signature ProBNP 1,797 (H) <=125 [facility] pg/mL [facility]ORY Specimen Anatomical Collection Method Collection Time Receive d Time (Source) Location / / Volume Laterality Blood specimen 08/15/2018 8:04 AM 019 8:20 (specimen) EST AM EST Resulting Agency Comment Spec In Lab Danette Maxwell APRN CHEMISTRY ORDERABLES Performing Organization Address City/State/[place] [address] documented in this encounter Visit Diagnoses Diagnosis Chronic systolic heart failure Cardiomyopathy, ischemic Other specified forms of chronic ischemi c heart disease ASCVD (arteriosclerotic cardiovascular d isease) Unspecified cardiovascular disease Essential hypertension Unspecified essential hypertension MARIA VICTORIA on CPAP Obstructive sleep apnea (adult) (pediatr ic) documented in this encounter Care Teams Battery Technician Relationship Specialty Start Date End Date Lovely Vicente MD PCP - General 04/16/15 [address] [place] [address] documented as of this encounter
--- OUTSIDE RECORDS SUMMARY | 2022-04-29 08:10 | XMS_ITS | Encounter Summary ---
:1945 Author Organization [facility] [place] [address] Care Team Providers Name Role Phone Lovely Vicente MD Primary Care Provider Encounter Details Date Type Department Care Team Description 07/28/2019 Office Visit Cardiology at [facility] Danette Maxwell Chronic systolic heart failu re; [facility] A, STACIE ASHD (arteriosclerotic heart disease); Drive [facility] S/P CABG x 3; [place], [place] MARIA VICTORIA (obstructive sleep apnea) on CPAP; [phone] CARDIOLOGY Mixed hyperlipidemia [phone] [place], [place] [address] Social History Tobacco Use [...] in this encounter Progress Notes Danette Maxwell, GLASS ARTIST - 07/28/2019 9:40 AM EST Images from [...] present. 07/07/2019 - 07/21/2019 Zio Patch Supervisor Counseling And Guidance The patient had a minimum heart rate [...] K+ 4.5 today 6. Post-op atrial fibrillation [id number] (CHF, HTN, DM, vascular disease, thromboembolism) Amiodarone discontinued Continue coumadin INR managed by PCP 7. PAD 08/06/2017: Right 1st, 2nd, 3rd toe amputation 08/11/2017: Left??femoral arterial access, RLE??angiogram, Balloon angioplasty of R PT with Eleazar 2.5 x 80 10/25/2017: right popliteal-pedal bypass at [facility] 8. Hypothyrodism S/p thyroidectomy for goiter [...] Refer to EP (Dr. Mcelroy in [place]) 5. Heart Failure Clinic follow up scheduled for: 3 months with proBNP and BMP Danette Maxwell APRN 07/28/2019 documented in this encounter Plan of Treatment Upcoming Encounters Date Type Specialty Care Team Description 05/28/2022 Appointment Cardiology Zulma Dolan MD [facility] [place], [place] [address] (Wo rk) 05/28/2022 Laboratory Appointment Lab 05/28/2022 Office Visit Cardiology Zulma Dolan [place] [address] Liz Poole PA [facility] [place] [address] 06/10/2022 Office Visit Dermatology Laura Scherer MD [facility] DR [address] [place], [place] [address] (Wo rk) documented as of this encounter Results (ABNORMAL) Basic Metabolic Panel (non-fasting) (07/28/2019 8:36 AM EST) P athologist Signature Glucose Lvl 153 65 - 199 [facility] mg/dL [facility] LABORATORY [...] Estimated GFR 70 >=60 mL/min/1.73 m?? [facility] Comment: The eGFR was calculated using the CKD-EP I equation. As with all creatinine based estimates of kidney function, eGFR values calculated with the CKD-EPI equation are not accurate in patients wi th acute kidney failure, extremes of body mass or the acutely ill. http://Siva Power/[facility] Hospitalk eGFR 81 >=60 mL/min/1.73 m?? [facility] Comment: The eGFR was calculated using the CKD-EP I equation. As with all creatinine based estimates of kidney function, eGFR values calculated with the CKD-EPI equation are not accurate in patients wi th acute kidney failure, extremes of body mass or the acutely ill. http://Siva Power/[facility] CITYnkf Specimen Anatomical Collection Method Collection Time Receive d Time (Source) Location / / Volume Laterality Blood specimen 07/28/2019 8:36 AM 020 8:46 (specimen) EST AM EST Resulting Agency Comment Spec In Lab Danette Maxwell APRN CHEMISTRY ORDERABLES Performing Organization Address City/State/ZIP Code Phon e Number [address] (ABNORMAL) pro-Brain Natriuretic Peptide (07/28/2019 8:36 AM EST) athologist Signature ProBNP 647 (H) <=125 pg/mL [facility] Specimen Anatomical Collection Method Collection Time Receive d Time (Source) Location / / Volume Laterality Blood specimen 07/28/2019 8:36 AM 020 8:46 (specimen) EST AM EST Resulting Agency Comment Spec In Lab Danette Maxwell APRN CHEMISTRY ORDERABLES Performing Organization Address City/[facility]/[place] [address] documented in this encounter Visit Diagnoses Diagnosis Chronic systolic heart failure ASHD (arteriosclerotic heart disease) Coronary atherosclerosis of unspecified type of vessel, [place] or graft S/P CABG x 3 Postsurgical aortocoronary bypass status MARIA VICTORIA (obstructive sleep apnea) on CPAP Obstructive sleep apnea (adult) (pediatr ic) Mixed hyperlipidemia documented in this encounter Care Teams Assistant Professor Of Psychology Relationship Specialty Start Date End Date Lovely Vicente MD PCP - General 04/16/[address] [place] [address] documented as of this encounter
--- OUTSIDE RECORDS SUMMARY | 2022-04-29 08:10 | XMS_ITS | Encounter Summary ---
:1945 Author Organization [facility] [place] [address] Care Team Providers Name Role Phone Lovely Vicente MD Primary Care Provider Encounter Details Date Type Department Care Team Description 08/26/2018 Transcribe Orders Laboratory Lovely Vicente, Deferred diagnosis [facility] on axis I [address] [address] [place], [place] [phone] Social History Tobacco Use Types Packs/Day Years [...] MD [facility] [place] [address] (Wo rk) 05/28/2022 Laboratory Appointment Lab 05/28/2022 Office Visit Cardiology Zulma Dolan [place] [address] Liz Poole PA [facility] [place] [address] 06/10/2022 Office Visit Dermatology Laura Scherer MD [facility] DR TE[address] GR[address]DERMAT [place], [place] [address] (Wo rk) documented as of this encounter Visit Diagnoses Diagnosis Deferred diagnosis on axis I Other unknown and unspecified cause of m orbidity or mortality documented in this encounter Care Teams Gettering Filament Machine Operator Relationship Specialty Start Date End Date Lovely Vicente MD PCP - General 04/16/15 [facility] [address] [place] [address] documented as of this encounter
--- OUTSIDE RECORDS SUMMARY | 2022-04-29 08:10 | XMS_ITS | Encounter Summary ---
:1945 Author Organization [facility] [place] [address] Care Team Providers Name Role Phone Lovely Vicente MD Primary Care Provider Encounter Details Date Type Department Care Team Description 08/15/2018 Laboratory Lab 3L [place] Chronic systoli c heart failure; Appointment [facility] ASCVD (ar teriosclerotic cardiovascular disease) [place] [address] Social History Tobacco Use Types [...] MD [facility] [place], [place] [address] (Wo rk) 05/28/2022 Laboratory Appointment Lab 05/28/2022 Office Visit Cardiology Zulma Dolan MD [facility] [place] [address] Liz Poole PA [facility] [place] [address] 06/10/2022 Office Visit Dermatology Laura Scherer MD [facility] ER DR TE[address] GR[address]DERMAT [place], [place] [address] (Wo rk) documented as of [...] Lvl 116 65 - 199 [facility] mg/dL [facility] LABORATORY [...] of body mass or the acutely ill. http://Love Records MultiMedia/[facility] YUKONnkf eGFR 79 >=60 mL/min/1.73 m?? [facility] Comment: The eGFR was calculated using the CKD-EP I equation. As with all creatinine based estimates of kidney function, eGFR values calculated with the CKD-EPI equation are not accurate in patients wi th acute kidney failure, extremes of body mass or the acutely ill. http://Love Records MultiMedia/[facility] YUKONnkf Specimen Anatomical Collection Method Collection Time Receive d Time (Source) Location / / Volume Laterality Blood specimen 08/15/2018 8:04 AM 019 8:20 (specimen) EST AM EST Resulting Agency Comment Spec In Lab Danette Maxwell APRN CHEMISTRY ORDERABLES Performing Organization Address City/State/[place] [address] Lipid Panel (08/15/2018 8:04 AM EST) P athologist Signature Chol, Total 75 mg/dL [facility] Comment: Lower Risk: <200 mg/dL Average Risk: 200-239 mg/dL Higher Risk: >rf=923 mg/dL Triglycerides 185 mg/dL [facility] Comment: Average Risk/Lower Risk: <150 mg/dL Borderline High Risk: 150-199 mg/dL High Risk: 200-499 mg/dL Very High Risk: >zv=151 mg/dL HDL 32 mg/dL [facility] Comment: Males: ?? Higher Risk: <40 mg/dL Females: ?? HIgher Risk: <50 mg/dL LDL Cholesterol 6 mg/dL [facility] Comment: Lowest Risk: <100 mg/dL Lower Risk: 100-129 mg/dL Borderline High Risk: 130-159 mg/dL High Risk: 160-189 mg/dL Very High Risk: >js=233 mg/dL Chol/HDL Ratio 2.3 ratio [facility] Lipid Interpretation See Note [facility] Comment: Lipid management should be guided by a p atient? s ASCVD risk, goals and preferences. ACC/AHA Guidelines recommend high intens ity statin if clinical ASCVD or LDL greater than or equal to 190 mg/dL. http://Branders.com.com/OVA-NEV-Ncjyvhumy Adults aged 40-75 with LDL 70-189 mg/dL should have their 10 year ASCVD risk estimated with the ACC/AHA ASCVD risk es timator http://tools.acc.org/IDAPV-Zmbz-Kmwhfoik r/ Statin should be discussed if risk [...] Address City/State/Z[place] [address] (ABNORMAL) pro-Brain Natriuretic Peptide (08/15/2018 8:04 AM EST) athologist Signature ProBNP 1,797 (H) <=125 [facility] pg[facility]mL [facility] Specimen Anatomical Collection Method Collection Time Receive d Time (Source) Location / / Volume Laterality Blood specimen 08/15/2018 8:04 AM 019 8:20 (specimen) EST AM EST Resulting Agency Comment Spec In Lab Danette Maxwell APRN CHEMISTRY ORDERABLES Performing Organization Address City/State/Z[place] [address] documented in this encounter Visit Diagnoses Diagnosis Chronic systolic heart failure ASCVD (arteriosclerotic cardiovascular d isease) Unspecified cardiovascular disease documented in this encounter Care Teams Screw Machine Tender Relationship Specialty Start Date End Date Lovely Vicente MD PCP - General 04/16/[address] [place] [address] documented as of this encounter
--- OUTSIDE RECORDS SUMMARY | 2022-04-29 08:10 | XMS_ITS | Encounter Summary ---
:1945 Author Organization [facility] [place] [address] Care Team Providers Name Role Phone Lovely Vicente MD Primary Care Provider Reason for Visit Reason Comments Follow-up Skin Check Encounter Details Date Type Department Care Team Description 01/06/2018 Office Visit Dermatology at [facility]; Abdelrahman HOOPER MD History of melanoma; [address] [facility] [place] [address] [facility] [place], [place] [address] Social History Tobacco Use [...] Garcia MD Section of Dermatology [facility] documented in this encounter Plan of Treatment Upcoming Encounters Date Type Specialty Care Team Description 05/28/2022 Appointment Cardiology Zulma Dolan MD [facility] [place], [place] [address] (Wo rk) 05/28/2022 Laboratory Appointment Lab 05/28/2022 Office Visit Cardiology Zulma Dolan MD [facility] [place] [address] Liz Poole PA [facility] [place] [address] 06/10/2022 Office Visit Dermatology Laura Scherer MD [facility] [address] [place], [place] [address] (Wo rk) documented as of this encounter Visit Diagnoses Diagnosis Multiple nevi Benign neoplasm of skin, site unspecifie d History of melanoma Personal history of malignant melanoma o f skin Seborrheic keratosis Other seborrheic keratosis documented in this encounter Care Teams Press Operator Carbon Products Relationship Specialty Start Date End Date Lovely Vicente MD PCP - General 04/16/[address] [place] [address] documented as of this encounter
--- OUTSIDE RECORDS SUMMARY | 2022-04-29 08:11 | XMS_ITS | Encounter Summary ---
:1945 Author Organization [facility] [place] [address] Care Team Providers Name Role Phone Lovely Vicente MD Primary Care Provider Encounter Details Date Type Department Care Team Description 11/29/2017 Hospital Encounter Vascular Lab at Janett Walter PAD (peripheral [facility], RVT artery [facility]) [place] [id number] Social History Tobacco Use Types Packs/Day Years [...] Dolan MD [facility] [address] [place], [place] [address] (Wo rk) 05/28/2022 Laboratory Appointment Lab 05/28/2022 Office Visit Cardiology Zulma Dolan MD [facility] [place] [address] Liz Poole PA [facility] [place] [address] 06/10/2022 Office Visit Dermatology Laura Scherer MD [facility] [address]DERMAT OLOGY [place], [place] [address] (Wo rk) documented [...] Component Value Ref Test Analysis Performed At [facility] Range Method Time Signature VB Text Department: Vascular Surgery Lab VASCUBASE Report Patient: [id number] (DON HOANG) CPT: 94589 ICD10: I72.4;I73.9 Referring Physician: DANETTE MAXWELL ?? [...] unspecified documented in this encounter Care Teams Cloth Grader Supervisor Relationship Specialty Start Date End Date Lovely Vicente MD PCP - General 04/16/[address] [place], [place] [address]Y [facility] [address] [place] [address] documented as of this encounter
--- OUTSIDE RECORDS SUMMARY | 2022-04-29 08:11 | XMS_ITS | Encounter Summary ---
:1945 Author Organization [facility] [place] [address] Care Team Providers Name Role Phone Lovely Vicente MD Primary Care Provider Reason for Visit Reason Comments Follow-up I'm having trouble with the VAC Encounter Details Date Type Department Care Team Description 08/26/2017 Office Visit Vascular Surgery at [facility], STEPHANIE Mercado Atheroembolism of foot, right; [facility] [address] Delayed surgical wound healing, initial encounter; [facility] VASCULAR SURG YEHUDA Acute on chronic systolic congestive hea rt failure ; [place], [place] [address] [phone] Social History Tobacco Use Types Packs/Day Years [...] home and into the care of the [facility]. However, since discharge from [facility] he has had some difficulty with continuation [...] Zulma Dolan MD [facility] [place], [place] [address] (Wo rk) 05/28/2022 Laboratory Appointment Lab 05/28/2022 Office Visit Cardiology Zulma Dolan MD [facility] [place] [address] iLz Poole PA [facility] [place] [address] 06/10/2022 Office Visit Dermatology Laura Scherer MD [facility] DR [address]-DERMAT O[place], [place] [address] (Wo rk) documented as of [...] Department: Vascular Surgery Lab VASCUBASE Report Patient: [id number] (GREGORY FATIMA) CPT: 71632 ICD10: T81.89XA;I75.021 Referring Physician: ARIK CLEMENT ?? [...] Glucose Lvl 98 65 - 199 [facility] mg/dL [facility] Comment: Diabetes: >=200 mg/dL plus symp toms BUN 20 10 - 20 mg/dL [facility] Creatinine 1.17 0.80 - 1.50 mg/dL [facility] [...] or in patients with acute kidney failure. [email or web address] http://FreshDigitalGroup/DHMCnkf Specimen Anatomical Collection Method Collection Time Receive d Time (Source) Location / / Volume Laterality Blood specimen 08/26/2017 2:00 PM 018 2:15 (specimen) EST PM EST Resulting Agency Comment Spec In Lab Danette Maxwell FRAME FIXER CHEMISTRY ORDERABLES Performing Organization Address City/[facility]/ZIP Code Phon e Number [address] (ABNORMAL) pro-Brain Natriuretic Peptide (08/26/2017 2:00 PM EST) P athologist Signature ProBNP 2,373 (H) <=125 [facility] pg/mL [facility] Specimen Anatomical Collection Method Collection Time Receive d Time (Source) Location / / Volume Laterality Blood specimen 08/26/2017 2:00 PM 018 2:15 (specimen) EST PM EST Resulting Agency Comment Spec In Lab Danette A [place] STACIE CHEMISTRY ORDERABLES Performing Organization Address City/[facility] [place] [address] documented in this encounter Visit Diagnoses Diagnosis Atheroembolism of foot, right Delayed surgical wound healing, initial encounter Acute on chronic systolic congestive hea rt failure Acute on chronic systolic heart failure Ischemic cardiomyopathy Other specified forms of chronic ischemi c heart disease documented in this encounter Care Teams Restaurant Manager Relationship Specialty Start Date End Date Lovely Vicente MD PCP - General 04/16/[address] [place] [address] documented as of this encounter
--- OUTSIDE RECORDS SUMMARY | 2022-04-29 08:11 | XMS_ITS | Encounter Summary ---
:1945 Author Organization [place] [address] Care Team Providers Name Role Phone Lovely Vicente MD Primary Care Provider Encounter Details Date Type Department Care Team Description 09/06/2017 Telephone Vascular Surgery at [facility] Ninfa Clark, [place] [phone] Social History Tobacco Use Types Packs/Day [...] Zulma Dolan MD [facility] [place], [place] [address] (Wo rk) 05/28/2022 Laboratory Appointment Lab 05/28/2022 Office Visit Cardiology Zulma Dolan MD [facility] [place] [address] Liz Poole PA [facility] [place] [address] 06/10/2022 Office Visit Dermatology Laura Scherer MD [facility] [address] [place], [place] [address] (Wo rk) documented as of this encounter Visit Diagnoses Not on filedocumented in this encounter Care Teams Hr Business Partner Consultant Relationship Specialty Start Date End Date Lovely Vicente MD PCP - General 04/16/[address] [place] [address] documented as of this encounter
--- OUTSIDE RECORDS SUMMARY | 2022-04-29 08:11 | XMS_ITS | Encounter Summary ---
:1945 Author Organization [facility] [place] [address] Care Team Providers Name Role Phone Lovely Vicente MD Primary Care Provider Reason for Visit Reason Comments Follow-up Encounter Details Date Type Department Care Team Description 08/19/2017 Office Visit Cardiac Surgery at [place], Jock S/P C ABG (coronary [facility] N, artery bypass graft) Formerly [facility], [facility] [place] CARDIOTHORACIC [address] SURGERY [phone] [place], [place] [address] Social History Tobacco Use Types [...] office. Best personal regards, Yuan [place] MD [phone] documented in this encounter Plan of Treatment Upcoming Encounters Date Type Specialty Care Team Description 05/28/2022 Appointment Cardiology Zulma Dolan MD [facility] er Dr [place] [address] (Wo rk) 05/28/2022 Laboratory Appointment Lab 05/28/2022 Office Visit Cardiology Zulma Dolan MD [facility] [place] [address] Liz Poole PA [facility] [place] [address] 06/10/2022 Office Visit Dermatology Laura Scherer MD [facility] ER DR TE[address] GR[address]DERMAT [place] [address] (Wo rk) documented as of this encounter [...] 454 ms MUSE SYSTEM (Bezet) Calculated P Farnam 20 degrees MUSE SYSTEM Calculated R Farnam -29 degrees MUSE SYSTEM Calculated T Farnam 121 degrees MUSE SYSTEM INTERPRETATION Normal sinus rhythm MUSE SYSTEM Inferior infarct (cited on or before 25-JAN-2013) Anterior 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) T wave abnormality, consider lateral ischemia Abnormal ECG When compared with ECG of 06-AUG-2017 12:37, No signif icant change was found Confirmed by MD Luci, Taurus Braun ([id number]) on 08/19/2017 1 0:37:38 PM Specimen Anatomical [...] status documented in this encounter Care Teams Roll Wrapper Relationship Specialty Start Date End Date Lovely Vicente MD PCP - General 04/16/[address] [place] [address] documented as of this encounter
--- OUTSIDE RECORDS SUMMARY | 2022-04-29 08:11 | XMS_ITS | Encounter Summary ---
:1945 Author Organization [facility] [place] [address] Care Team Providers Name Role Phone Lovely Vicente MD Primary Care Provider Reason for Referral Diagnostic Test (Routine) - Closed Specialty Diagnoses / Procedures Referred By Contact Refer red To Contact Cardiology Diagnoses Ischemic cardiomyopathy Acute on chronic systolic congestive heart failure Danette Maxwell APRN [facility] Non-Inv Card Lab Procedures Echocardiogram Transthoracic(Leb) [facility] [place] [address] [place] [address] Referral ID Status Reason Start Date Expiration Date Visits V isits Requested Authorized [id number] Closed Specialty 08/30/2017 08/30/2018 1 1 Service Requested Encounter Details Date Type Department Care Team Description 08/26/2017 Office Visit Cardiology at [facility] Danette Maxwell Ischemic cardiomyopathy; [facility] STACIE Gomes Acute on chronic systolic congestive hea rt failure ; Drive [facility] ASCVD (arteriosclerotic card iovascular disease); [place], [place] PAF (paroxysmal atrial fibrillation); [id number] CARDIOLOGY PAD (peripheral artery disease) [phone] [place], [place] [address] Social History Tobacco Use Types Packs/Day Years [...] painful and swollen right foot right d/t RUNNER WORKER pseudoaneurysm with embolization to the right [...] Zulma Dolan MD [facility] [place], [place] [address] (Wo rk) 05/28/2022 Laboratory Appointment Lab 05/28/2022 Office Visit Cardiology Zulma Dolan MD [facility] [place] [address] Liz Poole PA [facility] [place] [address] 06/10/2022 Office Visit Dermatology Laura Scherer MD [facility] DR [address] [place], [place] [address] (Wo rk) documented as of this encounter Results ECHOCARDIOGRAM COMPLETE W CONTRAST (10/07/2017 10:23 AM EDT) athologist Signature EF 45 HEART[facility] SYSTEM Anatomical Region Laterality Modality Other Specimen (Source) Anatomical Location Collection Method / Collectio n Time Received Time / Laterality Volume 10/07/2017 Narrative 10/07/2017 11:13 AM EDT Procedure: ?Transthoracic Echocardiogram Patient: ?NATALYA Mccollum ? (Age): 1945(72y) Med Rec#: ? [id number] ?Sex: ?M ? Site Loc: ? [facility] ?Ht / Wt: ??173(cm)/82(kg) Pt. Loc: ?Echo Lab ?BSA: ?1.96 Study Date: ?? 10/07/2017 ?Pt. Type: Outpatient Tape: ? Referring: Danette Maxwell Reading: Iker Cuevas ([id number]) Hot Plate Plywood Press Laborer: Yonathan Bocanegra Diagnosis: *ICD-10-PCS Ischemic cardiomyopathy (I2 [...] E-wave Vmax ?1.2 ?m/sec ? MV deceleration [id number] ?msec ? MV A-wave Vmax ?1 ?m/sec [...] ? Mid-Inferior ?Hypokinetic ? Mid-Inferoseptal ?Hypokinetic ? [place]-Septal ? Akinetic ? [place]-Anterior ? Hypokinetic ? [place]-Lateral ?Hypokinetic ? [place]-Inferior ? Hypokinetic ? [place]-Tip ?Akinetic ? This report has been electronically sign ed by: _ Iker Cuevas M.D. ? 10/07/2017 11:12:34 Images reviewed and interpretation [facility] Cardiac Ultrasound Laboratory Procedure Note Iker Cuevas MD - 10/07/2017Formatti ng of this note might be different from the original. Procedure: Transthoracic Echocardiogram Patient: NATALYA Mccollum (Age): [birth year]72y) Med Rec#: [id number] Sex: M Site Loc: [facility] Ht / Wt: 173(cm)/82(kg) Pt. Loc: Echo Lab BSA: 1.96 Study Date: 10/07/2017 Pt. Type: Outpati ent Tape: Referring: Danette Maxwell Reading: Iker Cuevas ([id number]) Hot Plate [employer] Press Laborer: Yonathan Bocanegra Diagnosis: *ICD-10-PCS Ischemic cardiomyopathy (I2 [...] MV E-wave Vmax 1.2 m/sec MV deceleration [id number] msec MV A-wave Vmax 1 m/sec MV [...] Akinetic Mid-Posterolateral Hypokinetic Mid-Inferior Hypokinetic Mid-Inferoseptal Hypokinetic Eugene-Septal Akinetic Eugene-Anterior Hypokinetic Eugene-Lateral Hypokinetic Eugene-Inferior Hypokinetic Eugene-Tip Akinetic This report has been electronically sign ed by: _ Iker Cuevas M.D. 10/07/2017 11:12 :34 Images reviewed and interpretation [facility] Cardiac Ultrasound Laboratory Danette Maxwell APRN ECHO ORDERABLES Basic Metabolic Panel (non-fasting) (08/26/2017 2:00 PM EST) P athologist Signature Glucose Lvl 98 65 - 199 [facility] mg/dL [facility] [...] or in patients with acute kidney failure. http://[employer]/DHnkdep http://[employer]/DHMCnkf Specimen Anatomical Collection Method Collection Time Receive d Time (Source) Location / / Volume Laterality Blood specimen 08/26/2017 2:00 PM 018 2:15 (specimen) EST PM EST Resulting Agency Comment Spec In Lab Danette Maxwell APRN CHEMISTRY ORDERABLES Performing Organization Address City/State/ZIP Code Phon e Number [address] (ABNORMAL) pro-Brain Natriuretic Peptide (08/26/2017 2:00 PM EST) P athologist Signature ProBNP 2,373 (H) <=125 [facility] RYAN pg/mL [facility] LABORATORY Specimen Anatomical Collection Method Collection Time Receive d Time (Source) Location / / Volume Laterality Blood specimen 08/26/2017 2:00 PM 018 2:15 (specimen) EST PM EST Resulting Agency Comment Spec In Lab Danette Maxwell APRN CHEMISTRY ORDERABLES Performing Organization Address City/State/[place] [address] documented in this encounter [...] failure documented in this encounter Care Teams Garden Labourer Relationship Specialty Start Date End Date Lovely Vicente MD PCP - General 04/16/[address] [place] [address] documented as of this encounter
--- OUTSIDE RECORDS SUMMARY | 2022-04-29 08:11 | XMS_ITS | Encounter Summary ---
:1945 Author Organization [facility] [place] [address] Care Team Providers Name Role Phone Lovely Vicente MD Primary Care Provider Reason for Visit Reason Onset Date Comments Other 11/11/2017 Please call [facility] Encounter Details Date Type Department Care Team Description 11/11/2017 Telephone Cardiology at [facility] Danette Maxwell, Other (Please call [facility] IT ARCHITECT [facility] ) [place] [address] CARDIOLOGY [place], [place] [address] (Wo rk) Social History Tobacco [...] Dolan MD [facility] Dr [place], [place] [address] (Wo rk) 05/28/2022 Laboratory Appointment Lab 05/28/2022 Office Visit Cardiology Zulma Dolan MD [facility] [place] [address] Liz Poole PA [facility] [place] [address] 06/10/2022 Office Visit Dermatology Laura Scherer MD [facility] [address] [place], [place] [address] (Wo rk) documented as of this encounter Visit Diagnoses Not on filedocumented in this encounter Care Teams Supervisor Sleeping Bag Department Relationship Specialty Start Date End Date Lovely Vicente MD PCP - General 04/16/15 [facility] [address] [place] [address] documented as of this encounter
--- OUTSIDE RECORDS SUMMARY | 2022-04-29 08:11 | XMS_ITS | Encounter Summary ---
:1945 Author Organization [place] [address] Care Team Providers Name Role Phone Lovely Vicente MD Primary Care Provider Encounter Details Date Type Department Care Team Description 08/30/2017 [facility] ischemia [facility] [address] [place], [place] VASCULAR SURGERY [address] [place] [address] [phone] Social History Tobacco Use Types Packs/Day Years [...] Smith MD - 08/30/2017 2:00 PM EST [facility] staff: Patient returns. He is [...] Zulma Dolan MD [facility] Dr [place], [place] [address] (Wo rk) 05/28/2022 Laboratory Appointment Lab 05/28/2022 Office Visit Cardiology Zulma Dolan MD [facility] [place] [address] Liz Poole PA [facility] [place] [address] 06/10/2022 Office Visit Dermatology Laura Scherer MD [facility] [address] [place], [place] [address] (Wo rk) documented as of this encounter Visit Diagnoses Diagnosis Critical lower limb ischemia Unspecified circulatory system disorder documented in this encounter Care Teams Organizational Development Specialist Relationship Specialty Start Date End Date Lovely Vicente MD PCP - General 04/16/[address] [place] [address] documented as of this encounter
--- OUTSIDE RECORDS SUMMARY | 2022-04-29 08:11 | XMS_ITS | Encounter Summary ---
:1945 Author Organization [facility] [place] [address] Care Team Providers Name Role Phone Lovely Vicente MD Primary Care Provider Encounter Details Date Type Department Care Team Description 10/07/2017 Laboratory Appointment Lab 3L [facility] [place] [address] Social History Tobacco Use Types Packs/Day Years [...] Description 05/28/2022 Appointment Cardiology Zulma Doaln MD [facility] er Dr [place], [place] [address] (Wo rk) 05/28/2022 Laboratory Appointment Lab 05/28/2022 Office Visit Cardiology Zulma Dolan MD [facility] [place] [address] Liz Poole PA [facility] [place] [address] 06/10/2022 Office Visit Dermatology Laura Scherer MD [facility] ER DR [address] GR[address]MAT ENIDReal [facility] [place] Amy (Wo rk) documented as of [...] Signature Glucose Lvl 99 65 - 199 [facility] mg/dL [facility] [...] [facility] Estimated GFR >60 >=60 [facility] LABORATORY Comment: The reported eGFR should be multiplied b y 1.2 for patients. The MDRD is not an appropriate measure o f renal function for patients with body mass extremes or in patients with acute kidney failure. http://[employer]/DHnkdep http://[employer]/DHMCnkf Specimen Anatomical Collection Method Collection Time Receive d Time (Source) Location / / Volume Laterality Blood specimen 10/07/2017 8:48 AM 018 8:50 (specimen) EDT AM EDT Resulting Agency Comment Spec In Lab Danette Maxwell SCOURING TRAIN OPERATOR CHIEF CHEMISTRY ORDERABLES Performing Organization Address City/[facility]/ZIP Code Phon e Number [address] (ABNORMAL) pro-Brain Natriuretic Peptide (10/07/2017 8:48 AM EDT) athologist Signature ProBNP 1,170 (H) <=125 [facility] pg/mL [facility] LABORATORY Specimen Anatomical Collection Method Collection Time Receive d Time (Source) Location / / Volume Laterality Blood specimen 10/07/2017 8:48 AM 018 8:50 (specimen) EDT AM EDT Resulting Agency Comment Spec In Lab Danette A Hans QUINONES CHEMISTRY ORDERABLES Performing Organization Address City/State/[place] [address] documented in this encounter Visit Diagnoses Diagnosis Chronic systolic heart failure documented in this encounter Care Teams Rail Transit Operator Relationship Specialty Start Date End Date Lovely Vicente MD PCP - General 04/16/15 [address] [place] [address] documented as of this encounter
--- OUTSIDE RECORDS SUMMARY | 2022-04-29 08:11 | XMS_ITS | Encounter Summary ---
:1945 Author Organization [facility] [place] [place] [address] Care Team Providers Name Role Phone Lovely Vicente MD Primary Care Provider Encounter Details Date Type Department Care Team Description 09/07/2017 Office Visit Endocrinology at [facility] Maria Ines Stallings of [facility] MD [place] [address] CENTER [phone] ENDOCRINOLOGY DEPT [place], [place] [address] Social History Tobacco Use Types [...] MD [facility] er Dr [place], [place] [address] (Wo rk) 05/28/2022 Laboratory Appointment Lab 05/28/2022 Office Visit Cardiology Zulma Dolan MD [facility] [place] [address] Liz Poole PA [facility] [place] [address] 06/10/2022 Office Visit Dermatology Laura Scherer MD [facility] ER DR [address] [place], [place] [address] (Wo rk) documented as of this encounter Visit Diagnoses Diagnosis Hx of papillary thyroid carcinoma Personal history of malignant neoplasm o f thyroid documented in this encounter Care Teams Blocker Hand Relationship Specialty Start Date End Date Lovely Vicente MD PCP - General 04/16/15 [facility] [address] [place] [address] documented as of this encounter
--- OUTSIDE RECORDS SUMMARY | 2022-04-29 08:11 | XMS_ITS | Encounter Summary ---
:1945 [place] [address] Care Team Providers Name Role Phone Lovely Vicente MD Primary Care Provider Encounter Details Date Type Department Care Team Description 11/29/2017 Hospital Encounter Radiology Library at Estefany Maxwell Pain [facility] METAL FINISH INSPECTOR [facility] [place] [address] CARDIOLOGY [phone] [place], [place] [address] (Wo rk) Social History Tobacco [...] Zulma Dolan MD [facility] [place], [place] [address] (Wo rk) 05/28/2022 Laboratory Appointment Lab 05/28/2022 Office Visit Cardiology Zulma Dolna MD [facility] [place] [address] Liz Poole PA [facility] [place] [address] 06/10/2022 Office Visit Dermatology Laura Scherer MD [facility] DR [address] [place]LOG[place], [place] 0[address] (Wo rk) documented as [...] City/State/ZIP Code Phon e Number [place], [place] documented in this encounter Visit Diagnoses Diagnosis Pain Generalized pain documented in this encounter Care Teams Regulatory Affairs Strategy Specialist Relationship Specialty Start Date End Date Lovely Vicente MD PCP - General 04/16/[address] [place] [address] documented as of this encounter
--- OUTSIDE RECORDS SUMMARY | 2022-04-29 08:11 | XMS_ITS | Encounter Summary ---
:1945 Author Organization [facility] [address] Care Team Providers Name Role Phone Lovely Vicente MD Primary Care Provider Encounter Details Date Type Department Care Team Description 08/19/2017 Office Visit Vascular Surgery at [place], PAD (peripheral artery [facility] NURSE disease) [facility] [address] [place], [place] VASCULAR SURGERY [address] [place] [address] [phone] Social History Tobacco Use Types Packs/Day Years [...] Cardiology Zulma Dolan MD [facility] [place], [place] [address] (Wo rk) 05/28/2022 Laboratory Appointment Lab 05/28/2022 Office Visit Cardiology Zulma Dolan MD [facility] [place] [address] Liz Poole PA [facility] [place] [address] 06/10/2022 Office Visit Dermatology Laura Scherer MD [facility] DR [address] [place], [place] [address] (Wo rk) documented as of this encounter Visit Diagnoses Diagnosis PAD (peripheral artery disease) Peripheral vascular disease, unspecified documented in this encounter Care Teams Revenue Research Analyst Relationship Specialty Start Date End Date Lovely Vicente MD PCP - General 04/16/[address] [place] [address] documented as of this encounter
--- OUTSIDE RECORDS SUMMARY | 2022-04-29 08:11 | XMS_ITS | Encounter Summary ---
:1945 Author Organization [place] [address] Care Team Providers Name Role Phone Lovely Vicente MD Primary Care Provider Reason for Referral Diagnostic Test (Routine) - Closed Specialty Diagnoses / Procedures Referred By Contact Refer red To Contact Cardiology Diagnoses Ischemic cardiomyopathy Acute on chronic systolic congestive heart failure Danette Maxwell APRN [facility] Non-Inv Card Lab Procedures Echocardiogram Transthoracic(Leb) [facility] [place] [address] [place] [address] Referral ID Status Reason Start Date Expiration Date Visits V isits Requested Authorized [id number] Closed Specialty 08/30/2017 08/30/2018 1 1 Service Requested Reason for Visit Diagnostic Test (Routine) - Closed Specialty Diagnoses / Procedures Referred By Contact Refer red To Contact Cardiology Diagnoses Ischemic cardiomyopathy Acute on chronic systolic congestive heart failure Danette Maxwell APRN [facility] Non-Inv Card Lab Procedures Echocardiogram Transthoracic(Leb) [facility] [place] [address] [place] [address] Referral ID Status Reason Start Date Expiration Date Visits V isits Requested Authorized [id number] Closed Specialty 08/30/2017 08/30/2018 1 1 Service Requested Encounter Details Date Type Department Care Team Description 10/07/2017 Hospital Encounter Non-Invasive Ischemic cardiomyopathy; Cardiology Lab Barbara Craig on chronic systolic [place] [address] Social History Tobacco Use Types Packs/Day [...] Description 05/28/2022 Appointment Cardiology Zulma Dolan MD [facility] [address] [place], [place] [address] (Wo rk) 05/28/2022 Laboratory Appointment Lab 05/28/2022 Office Visit Cardiology Zulma Dolan MD [facility] [place] [address] Liz Poole PA [facility] [place] [address] 06/10/2022 Office Visit Dermatology Laura Scherer MD [facility] DR [address] [place], [place] 0[address] (Wo rk) documented as [...] Mccollum ? (Age): 1945(72y) Med Rec#: ? [id number] ?Sex: ?M ? Site Loc: ? [facility] ?Ht / Wt: ??173(cm)/82(kg) Pt. Loc: ?Echo Lab ?BSA: ?1.96 Study Date: ?? 10/07/2017 ?Pt. Type: Outpatient Tape: ? Referring: Danette Maxwell Reading: Iker Cuevas ([id number]) Tow Motor Operator: Yonathan Bocanegra Diagnosis: *ICD-10-PCS Ischemic cardiomyopathy [...] E-wave Vmax ?1.2 ?m/sec ? MV deceleration [id number] ?msec ? MV A-wave Vmax ?1 ?m/sec [...] ? Mid-Inferior ?Hypokinetic ? Mid-Inferoseptal ?Hypokinetic ? [place]-Septal ? Akinetic ? [place]-Anterior ? Hypokinetic ? [place]-Lateral ?Hypokinetic ? [place]-Inferior ? Hypokinetic ? [place]-Tip ?Akinetic ? This report has been electronically sign ed by: _ Iker Cuevas M.D. ? 10/07/2017 11:12:34 Images reviewed and interpretation verif ied [facility] Cardiac Ultrasound Laboratory Procedure Note Iker Cuevas MD - 10/07/2017Formatti ng of this note might be different from the original. Procedure: Transthoracic Echocardiogram Patient: NATALYA MCBRIDE(Age): [birth year]72y) Med Rec#: [id number] Sex: M Site Loc: [facility] Ht / Wt: 173(cm)/82(kg) Pt. Loc: Echo Lab BSA: 1.96 Study Date: 10/07/2017 Pt. Type: Outpati ent Tape: Referring: Danette Maxwell Reading: Iker Cuevas ([id number]) Tow Motor Operator: Yonathan Bocanegra Diagnosis: *ICD-10-PCS Ischemic cardiomyopathy [...] MV E-wave Vmax 1.2 m/sec MV deceleration [id number] msec MV A-wave Vmax 1 m/sec MV [...] Akinetic Mid-Posterolateral Hypokinetic Mid-Inferior Hypokinetic Mid-Inferoseptal Hypokinetic [place]-Septal Akinetic [place]-Anterior Hypokinetic [place]-Lateral Hypokinetic [place]-Inferior Hypokinetic [place]-Tip Akinetic This report has been electronically sign ed by: _ Iker Cuevas M.D. 10/07/2017 11:12 :34 Images reviewed and interpretation elvie hwang [facility] Cardiac [...] Routine documented in this encounter Care Teams Rose Grower Relationship Specialty Start Date End Date Lovely Vicente MD PCP - General 04/16/[address] [place] [address] documented as of this encounter
--- OUTSIDE RECORDS SUMMARY | 2022-04-29 08:11 | XMS_ITS | Encounter Summary ---
:1945 Author Organization [facility] [place] [address] Care Team Providers Name Role Phone Lovely Vicente MD Primary Care Provider Encounter Details Date Type Department Care Team Description 11/29/2017 Office Visit Cardiology at [facility] Annette Maxwell Chronic systolic congestive heart failure; [facility] A, WASTE WATER PLANT OPERATOR ASCVD (arteriosclerotic cardiovascular d isease); [facility] Cardiomyopathy, ischemic; [place], [place] PAD (peripheral artery disease) [id number] CARDIOLOGY [phone] [place], [place] [address] Social History Tobacco Use Types [...] in this encounter Progress Notes Annette Maxwell, WASTE WATER PLANT OPERATOR - 11/29/2017 9:20 AM EDT ID [...] painful and swollen right foot right d/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 [...] greater saphenous vein (done at [facility] debridement of right foot with wound vac [...] popliteal-pedal bypass at [facility] ? Plan: 1. A review of the [...] Zulma Dolan MD [facility] [place], [place] [address] (Wo rk) 05/28/2022 Laboratory Appointment Lab 05/28/2022 Office Visit Cardiology uZlma Dolan MD [facility] [place] [address] Liz Poole PA [facility] [place] [address] 06/10/2022 Office Visit Dermatology Laura Scherer MD [facility] [address]MAT [place], [place] [address] (Wo rk) documented as of this encounter Results Arterial Duplex Leg, Unil (11/29/2017 10:32 AM EDT) Component Value Ref Test Analysis Performed At [facility] Range Method Time Signature VB Text Department: Vascular Surgery Lab VASCUBASE Report Patient: [id number] (GREGORY HOANG) CPT: 81861 ICD10: I72.4;I73.9 Referring Physician: ANNETTE MAXWELL ?? [...] Glucose Lvl 217 (H) 65 - 199 [facility] mg/dL [facility] Comment: [...] [facility] Estimated GFR >60 >=60 [facility] Comment: The reported eGFR should be multiplied b y 1.2 for patients. The MDRD is not an appropriate measure o f renal function for patients with body mass extremes or in patients with acute kidney failure. http://[employer]fern [employer].Mape/DHnkdep http://Interactive Project/DHMCnkf Specimen Anatomical Collection Method Collection Time Receive d Time (Source) Location / / Volume Laterality Blood specimen 11/29/2017 8:22 AM 05/07/2 018 8:29 (specimen) EDT AM EDT Resulting Agency Comment Spec In Lab Annette Maxwell WASTE WATER PLANT OPERATOR CHEMISTRY ORDERABLES Performing Organization Address City/State/[place] [address] (ABNORMAL) pro-Brain Natriuretic Peptide (11/29/2017 8:22 AM EDT) P athologist Signature ProBNP 1,769 (H) <=125 [facility] pg/mL [facility] Specimen Anatomical Collection Method Collection Time Receive d Time (Source) Location / / Volume Laterality Blood specimen 11/29/2017 8:22 AM 018 8:29 (specimen) EDT AM EDT Resulting Agency Comment Spec In Lab Annette Maxwell WASTE WATER PLANT OPERATOR CHEMISTRY ORDERABLES Performing Organization Address City/[facility]/ZIP [place] [address] documented in this encounter Visit Diagnoses Diagnosis Chronic systolic congestive heart failur e Chronic systolic heart failure ASCVD (arteriosclerotic cardiovascular d isease) Unspecified cardiovascular disease Cardiomyopathy, ischemic Other specified forms of chronic ischemi c heart disease PAD (peripheral artery disease) Peripheral vascular disease, unspecified documented in this encounter Care Teams Technical Specialist Cytogenetics Relationship Specialty Start Date End Date Lovely Vicente MD PCP - General 04/16/[address] [place] [address] documented as of this encounter
--- OUTSIDE RECORDS SUMMARY | 2022-04-29 08:11 | XMS_ITS | Encounter Summary ---
:1945 Author Organization [facility] [place] [address] Care Team Providers Name Role Phone Lovely Vicente MD Primary Care Provider Reason for Visit Reason Onset Date Comments VNA Calls 08/30/2017 Encounter Details Date Type Department Care Team Description 08/30/2017 Telephone [place] [facility] Cora Reid RN VNA Calls [facility] [place] [address] Social History Tobacco Use Types Packs/Day [...] EST Caller: Alfonso at [facility] [phone] Reason for call: Changing his wound vac [...] had been in contact with [facility]'s Wound Care Nurse who advised [...] MD [facility] [address] [place], [place] [address] (Wo rk) 05/28/2022 Laboratory Appointment Lab 05/28/2022 Office Visit Cardiology Zulma Dolan MD [facility] [place] [address] Liz Poole PA [facility] [place] [address] 06/10/2022 Office Visit Dermatology Laura Scherer MD [facility] DR [address] [place], [place] [address] (Wo rk) documented as of this encounter Visit Diagnoses Not on filedocumented in this encounter Care Teams X Ray Service Engineer Relationship Specialty Start Date End Date Lovely Vicente MD PCP - General 04/16/[address] [place] [address] documented as of this encounter
--- OUTSIDE RECORDS SUMMARY | 2022-04-29 08:11 | XMS_ITS | Encounter Summary ---
:1945 Author Organization [facility] [place] [address] Care Team Providers Name Role Phone Lovely Vicente MD Primary Care Provider Encounter Details Date Type Department Care Team Description 08/26/2017 Hospital Encounter Vascular Lab at [facility], Athero embolism of foot, right; [place], [place] Delayed surgi nusrat wound healing, [place] [phone] Social History Tobacco Use Types Packs/Day Years [...] Dolan MD [facility] [address] [place], [place] [address] (Wo rk) 05/28/2022 Laboratory Appointment Lab 05/28/2022 Office Visit Cardiology Zulma Dolan MD [facility] [place] [address] Liz Poole PA [facility] [place] [address] 06/10/2022 Office Visit Dermatology Laura Scherer MD [facility] DR [address]DERMAT [place], [place] [address] (Wo rk) documented as of [...] Component Value Ref Test Analysis Performed At [facility] Range Method Time Signature VB Text Department: Vascular Surgery Lab VASCUBASE Report Patient: [id number] (DON HOANG) CPT: 45470 ICD10: T81.89XA;I75.021 Referring Physician: ELVER BLOOM ?? [...] encounter documented in this encounter Care Teams Wood Furniture Assembler Relationship Specialty Start Date End Date Lovely Vicente MD PCP - General 04/16/[address] [place] [address] documented as of this encounter
--- OUTSIDE RECORDS SUMMARY | 2022-04-29 08:11 | XMS_ITS | Encounter Summary ---
:1945 Author Organization [facility] [place] [address] Care Team Providers Name Role Phone Lovely Vicente MD Primary Care Provider Reason for Referral Consultation (Routine) - Specialty Diagnoses / Procedures Referred By Contact Refer red To Contact Wound Healing Center Diagnoses Atheroembolism of foot, right Delayed surgical wound healing, subsequent encounter Aurelia Rivera PA [address] [facility] [place] [address] Referral ID Status Reason Start Date Expiration Date Visits V isits Requested Authorized [id number] Consult, 09/08/2017 03/07/2018 1 1 Test & Treat Reason for Visit Reason Comments Wound Check My foot hurts Encounter Details Date Type Department Care Team Description 09/07/2017 Office Visit Vascular Surgery at MiguelAurelia PA Atheroembolism of foot, right; [facility] [address] [facility] Delayed surgical wound healing, subseque nt encounter [facility] [place] [phone] Social History Tobacco Use Types Packs/Day Years [...] at home for VAC dressing changes from [facility]. Since his last visit his right forefoot wound VAC care has improved and [facility] nurses have maintained a [...] MD at [facility] OR Social Hx: Social History Substance [...] Zulma Dolan MD [facility] [place], [place] [address] (Wo rk) 05/28/2022 Laboratory Appointment Lab 05/28/2022 Office Visit Cardiology Zulma Dolan MD [facility] [place] [address] Liz Poole PA [facility] [place] [address] 06/10/2022 Office Visit Dermatology Laura Scherer MD [facility] [address] [place], [place] [address] (Wo rk) Scheduled Referrals Name Type Priority Associated Diagnoses Order S chedule Referral to Wound Outpatient Referral Routine Atheroembolism o f foot, Ordered: Clinic right 09/08/2017 Delayed surgical wound healing, subsequent encounter documented as of this encounter Visit Diagnoses Diagnosis Atheroembolism of foot, right Delayed surgical wound healing, subseque nt encounter documented in this encounter Care Teams Skate Shop Attendant Relationship Specialty Start Date End Date Lovely Vicente MD PCP - General 04/16/[address] [facility] [address] [place] [address] documented as of this encounter
--- OUTSIDE RECORDS SUMMARY | 2022-04-29 08:11 | XMS_ITS | Encounter Summary ---
:1945 Author Organization [facility] [place] [address] Care Team Providers Name Role Phone Lovely Vicente MD Primary Care Provider Encounter Details Date Type Department Care Team Description 09/03/2017 Telephone [place]ascular [place] [facility] [place]inf[place] Clark, [place] [address] Social History Tobacco Use Types Packs/Day [...] help with the discomfort of the change. Regulatory Affairs Consultant told the VNA that I would ask [...] Zulma Dolan MD [facility] [place], [place] [address] (Wo rk) 05/28/2022 Laboratory Appointment Lab 05/28/2022 Office Visit Cardiology Zulma Dolan MD [facility] [place] [address] Liz Poole PA [facility] [place] [address] 06/10/2022 Office Visit Dermatology Laura Scherer MD [facility] [address] [place], [place] [address] (Wo rk) documented as of this encounter Visit Diagnoses Not on filedocumented in this encounter Care Teams Bulb Farmworker Relationship Specialty Start Date End Date Lovely Vicente MD PCP - General 04/16/[address] [place] [address] [address] [facility] 1 [place] [address] documented as of this encounter
--- OUTSIDE RECORDS SUMMARY | 2022-04-29 08:11 | XMS_ITS | Encounter Summary ---
:1945 Author Organization [facility] [place] [address] Care Team Providers Name Role Phone Lovely Vicente MD Primary Care Provider Encounter Details Date Type Department Care Team Description 10/05/2017 Telephone Cardiology [place] [facility] Tamiko Sin MD [facility] [place] [address] CARDIOLOGY DEPT [phone] [place], [place] [address] (Wo rk) Social History Tobacco [...] [facility] [place] [address] [place] [address] (Wo rk) 05/28/2022 Laboratory Appointment Lab 05/28/2022 Office Visit Cardiology Zulma Dolan MD [facility] [place] [address] Liz Poole PA [facility] [place] [address] 06/10/2022 Office Visit Dermatology Laura Scherer MD [facility] ER DR [address] [place], [place] [address] (Wo rk) documented as of this encounter Visit Diagnoses Not on filedocumented in this encounter Care Teams Social Services Counselor Relationship Specialty Start Date End Date Lovely Vicente MD PCP - General 04/16/[address] [place] [address] documented as of this encounter
--- OUTSIDE RECORDS SUMMARY | 2022-04-29 08:11 | XMS_ITS | Encounter Summary ---
:1945 Author Organization [facility] Address [facility] [place] [address] Care Team Providers Name Role Phone Lovely Vicente MD Primary Care Provider Encounter Details Date Type Department Care Team Description 10/07/2017 Office Visit Cardiology at [facility] Danette Maxwell Chronic systolic heart failu re; [facility] A, PROFESSOR OF MANAGEMENT S/P CABG x 3; Drive [facility] On amiodarone therapy; [place], [place] Atrial fibrillation, unspecified type; [address] CARDIOLOGY ASCVD (arteriosclerotic cardiovascular d isease) [phone] [place], [place] [address] Social History Tobacco Use Types [...] - documented in this encounter Progress Notes Taylor Danette A, PROFESSOR OF MANAGEMENT - 10/07/2017 11:20 AM EDT ID and [...] painful and swollen right foot right d/t TALEND 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 Espino On IV antibiotics at [facility] Today: Mr. Fatima is accompanied by his [...] see Dr. Bains well at [facility] and follow his wound on his right lower extremity. And she will continue to direct antibiotic treatment. Ihave asked that the echocardiogram results be faxed to Dr. Zurita at [facility]. 1. ASCVD Continue ASA, BB and [...] removal by Dr. Aguero at [facility]. Currently receiving IV antibiotics at [facility] ? Plan: 1. A review of the [...] Dolan MD [facility] Dr [place], [place] [address] (Wo rk) 05/28/2022 Laboratory Appointment Lab 05/28/2022 Office Visit Cardiology Zulma Dolan MD [facility] [place] [id number] Liz Poole PA [facility] [place] [address] 06/10/2022 Office Visit Dermatology Laura Scherer MD [facility] DR [address] [place], [place] [address] (Wo rk) documented as of this encounter Results (ABNORMAL) Basic Metabolic Panel (non-fasting) (10/07/2017 8:48 AM EDT) athologist Signature Glucose Lvl 99 65 - 199 [facility] mg/dL [facility] Comment: Diabetes: >=200 mg/dL plus symp toms BUN 27 (H) 10 - 20 mg/dL [facility] Creatinine 1.07 0.80 - 1.50 mg/dL [facility] [...] or in patients with acute kidney failure. http://moka5.[employer]/DHnkdep http://PBJ Concierge/DHMCnkf Specimen Anatomical Collection Method Collection Time Receive d Time (Source) Location / / Volume Laterality Blood specimen 10/07/2017 8:48 AM 018 8:50 (specimen) EDT AM EDT Resulting Agency Comment Spec In Lab Danette Maxwell APRN CHEMISTRY ORDERABLES Performing Organization Address City/State/[place] [address] (ABNORMAL) pro-Brain Natriuretic Peptide (10/07/2017 8:48 AM EDT) P athologist Signature ProBNP 1,170 (H) <=125 [facility] pg/mL [facility] Specimen Anatomical Collection Method Collection Time Receive d Time (Source) Location / / Volume Laterality Blood specimen 10/07/2017 8:48 AM 018 8:50 (specimen) EDT AM EDT Resulting Agency Comment Spec In Lab Danette Maxwell APRN CHEMISTRY ORDERABLES Performing Organization Address City/State/Z[place] [address] documented in this encounter Visit Diagnoses Diagnosis Chronic systolic heart failure S/P CABG x 3 Postsurgical aortocoronary bypass status On amiodarone therapy Atrial fibrillation, unspecified type ASCVD (arteriosclerotic cardiovascular d isease) Unspecified cardiovascular disease documented in this encounter Care Teams Unit Nurse Relationship Specialty Start Date End Date Lovely Vicente MD PCP - General 04/16/[address] [place] [address] documented as of this encounter
--- OUTSIDE RECORDS SUMMARY | 2022-04-29 08:11 | XMS_ITS | Encounter Summary ---
:1945 Author Organization [facility] [place] [address] Care Team Providers Name Role Phone Lovely Vicente MD Primary Care Provider Encounter Details Date Type Department Care Team Description 11/29/2017 Laboratory Lab 3L Barbara Chronic systoli c congestive heart failure; Appointment [facility] ASCVD (ar teriosclerotic cardiovascular disease); Hospital Cardiomyopathy, [place] [address] Social History Tobacco Use [...] [facility] [place], [place] [address] (Wo rk) 05/28/2022 Laboratory Appointment Lab 05/28/2022 Office Visit Cardiology Zulma Dolan MD [facility] [place] [address] Liz Poole PA [facility] [place] [address] 06/10/2022 Office Visit Dermatology Laura Scherer MD [facility] ER DR [address] [place], [place] [address] (Wo [...] Signature PT 23.0 (H) 9.4 - 12.5 [employer] [...] Organization Address City/State/[place] [address] (ABNORMAL) Basic Metabolic Panel (non-fasting) (11/29/2017 8:22 AM EDT) P athologist Signature Glucose Lvl 217 (H) 65 - 199 [facility] mg/dL [facility] [...] or in patients with acute kidney failure. http://Twitpay.Liebo/DHnkdep http://KSKT/DHMCnkf Specimen Anatomical Collection Method Collection Time Receive d Time (Source) Location / / Volume Laterality Blood specimen 11/29/2017 8:22 AM 018 8:29 (specimen) EDT AM EDT Resulting Agency Comment Spec In Lab Danette Maxwell APRN CHEMISTRY ORDERABLES Performing Organization Address City/State/[place] [address] (ABNORMAL) pro-Brain Natriuretic Peptide (11/29/2017 8:22 AM EDT) P athologist Signature ProBNP 1,769 (H) <=125 [facility] pg/mL [facility] Specimen Anatomical Collection Method Collection Time Receive d Time (Source) Location / / Volume Laterality Blood specimen 11/29/2017 8:22 AM 018 8:29 (specimen) EDT AM EDT Resulting Agency Comment Spec In Lab Danette Maxwell APRN CHEMISTRY ORDERABLES Performing Organization Address City/State/ZIP Code Phon e Number [address] Lavender Tube HOLD (11/29/2017 8:14 AM EDT) Patholo gist Method Time Signature Lavender Hold Sample in [facility] lab. [facility] Specimen [...] disease documented in this encounter Care Teams Lotus Notes Developer Relationship Specialty Start Date End Date Lovely Vicente MD PCP - General 04/16/[address] [place] [address] documented as of this encounter
--- OUTSIDE RECORDS SUMMARY | 2022-04-29 08:11 | XMS_ITS | Encounter Summary ---
:1945 Author Organization [facility] [place] [address] Care Team Providers Name Role Phone Lovely Vicente MD Primary Care Provider Encounter Details Date Type Department Care Team Description 08/19/2017 Hospital Encounter XRay at [facility] Martha Teague, S/P CABG x [address] [facility] [place] [address] [place] [address] RD [phone] [facility] [place], [place] [address] (Wo rk) Social History [...] Zulma Dolan MD [facility] [place], [place] [address] (Wo rk) 05/28/2022 Laboratory Appointment Lab 05/28/2022 Office Visit Cardiology Zulma Dolan MD [facility] [place] [address] Liz Poole PA [facility] [place] [address] 06/10/2022 Office Visit Dermatology Laura Scherer MD [facility] DR [address] [place], [place] [address] (Wo rk) documented as of [...] 2017 EXAMINATION: XR CHEST PA AND LATERAL (Friendly ScoreIC) CLINICAL HISTORY: CABG x 3 TECHNIQUE: PA [...] status documented in this encounter Care Teams Machine I Trimmer Relationship Specialty Start Date End Date Lovely Vicente MD PCP - General 04/16/[address] [place], [place] [address]Y [facility] 1 [place] [address] documented as of this encounter
--- OUTSIDE RECORDS SUMMARY | 2022-04-29 08:11 | XMS_ITS | Encounter Summary ---
:1945 Author Organization [facility] [place] [address] Care Team Providers Name Role Phone Lovely Vicente MD Primary Care Provider Encounter Details Date Type Department Care Team Description 09/16/2017 Hospital En[place] [address] Social History Tobacco Use Types Packs/Day [...] Dolan MD [facility] [place], [place] [address] (Wo rk) 05/28/2022 Laboratory Appointment Lab 05/28/2022 Office Visit Cardiology Zulma Dolan MD [facility] [place] [address] Liz Poole PA [facility] [place] [address] 06/10/2022 Office Visit Dermatology Laura Scherer MD [facility] DR [address] [place], [place] [address] (Wo rk) documented as of this encounter Procedures Procedure Name Priority Date/Time Associated Diagnosis Comme [facility] SURGICAL PATHOLOGY Routine 09/16/2017 7:28 AM Res ults for this REPORT EST procedure are i n the results section. documented in this encounter Results Surgical Pathology Report (09/16/2017 7:28 AM EST) Component Value Ref Test Analysis Performed At [facility] Method Time Signature Surgical [id number] ? Location: [facility] Pathology [place] Report The signing pathologist has (i) examined [...] Flower Verified: ??09/24/2017 ?Pathologist Performed at: ??-[facility] Dept. of Pathology, [place], [place] CLINICAL INFORMATION Specimen Submitted: A - [...] Address City/State/[place] [address] documented in this encounter Visit Diagnoses Not on filedocumented in this encounter Care Teams Guest Specialist Relationship Specialty Start Date End Date Lovely Vicente MD PCP - General 04/16/[address] [place] [address] documented as of this encounter
--- OUTSIDE RECORDS SUMMARY | 2022-04-29 08:11 | XMS_ITS | Encounter Summary ---
:1945 Author Organization [facility] [place] [address] Care Team Providers Name Role Phone Lovely Vicente MD Primary Care Provider Encounter Details Date Type Department Care Team Description 09/06/2017 Orders Only Vascular Surgery at [facility] Ninfa Clark, [facility] Jorge [place] [address] Social History Tobacco Use Types Packs/Day [...] MD [facility] er [place], [place] [address] (Wo rk) 05/28/2022 Laboratory Appointment Lab 05/28/2022 Office Visit Cardiology Zulma Dolan MD [facility] [place] [address] Liz Poole PA [facility] [place] [address] 06/10/2022 Office Visit Dermatology Laura Scherer MD [facility] [address] [place], [place] [address] (Wo rk) documented as of this encounter Visit Diagnoses Not on filedocumented in this encounter Care Teams Six Horse Hitch Driver Relationship Specialty Start Date End Date Lovely Vicente MD PCP - General 04/16/[address] [place] [address] documented as of this encounter
--- OUTSIDE RECORDS SUMMARY | 2022-04-29 08:11 | XMS_ITS | Encounter Summary ---
:1945 Author Organization [facility] [place] [address] Care Team Providers Name Role Phone Lovely Vicente MD Primary Care Provider Encounter Details Date Type Department Care Team Description 10/05/2017 Unscheduled Cardiology at [facility] Sin PATIENT NOT SEEN Encounter [facility] Tamiko Martinez MD [facility] [id number] CARDIOLOGY DEPT [phone] [place] [address] Social History Tobacco Use Types Packs/Day Years [...] Zulma Dolan MD [facility] [address] [place], [place] [address] (Wo rk) 05/28/2022 Laboratory Appointment Lab 05/28/2022 Office Visit Cardiology Zulma Dolan [place] [facility] [place] [address] Liz Poole PA [facility] [place] [address] 06/10/2022 Office Visit Dermatology Laura Scherer MD [facility] [address] [place], [place] [address] (Wo rk) documented as of this encounter Visit Diagnoses Diagnosis DH PATIENT NOT SEEN documented in this encounter Care Teams Wheelchair Van Operator First Responder Relationship Specialty Start Date End Date Lovely Vicente MD PCP - General 04/16/[address] [place] [address] documented as of this encounter
--- OUTSIDE RECORDS SUMMARY | 2022-04-29 08:12 | XMS_ITS | Encounter Summary ---
:1945 [place] [address] Care Team Providers Name Role Phone Lovely Vicente MD Primary Care Provider Reason for Visit Auth/Cert Specialty Diagnoses / Procedures Referred By Contact Refer red To Contact Diagnoses Critical lower limb ischemia CELLULITIS RT FOOT Procedures EMERGENCY Referral ID Status Reason Start Date Expiration Date Visits Requ ested Visits Authorized [id number] 1 1 Encounter Details Date Type Department Care Team Description 08/06/2017 - Hospital Encounter 5 Yonathan Oneill lower limb ischemia; 08/16/2017 Su Flores MD Ischemic foot Hospital [facility] [address] [place] [phone] Social History Tobacco Use Types Packs/Day Years [...] addition to a pseudoaneurysm of his R MUSHROOM PRESS OPERATOR and bilateral anterior tibial artery occlusions. [...] Dorsalis Pedis (Ankle) Artery ?132 ? 0.94 ??Dorado-Biphasic ? Posterior Tibial (Ankle) Artery ??154 ? 1.10 ??Dorado-Biphasic ? Fourth Toe ? 67 ?0.48 ?? [...] foot. Discharge Conditions/Prognosis: Good Discharge to: [facility] Rehab Discharge Medications: Your Medications New [...] For any problems or questions please call [phone] ZELDA Smith, conveyor mechanic Nurse Clinician For issues on weeknights after 5pm and weekends please call [phone] and ask for the Vascular Fellow wetlands conservation laborer. General Instructions None Future Appointments and Orders Future Appointments Provider Department Dept Phone 08/26/2017 4:00 PM Aurelia Rivera PA [facility] Surgery [facility] [place] [phone] 09/07/2017 3:00 PM LAB, THREE L Lab 3L [facility] [phone] 09/07/2017 4:00 PM Luz Prescott MD Endocrinology at [place] [phone] 09/09/2017 8:00 AM Barbra Soares APRN Pain Management [facility] [place] [phone] Please bring a list of your current [...] For any problems or questions please call [phone] ZELDA Smith, conveyor mechanic Nurse Clinician For issues on weeknights after 5pm and weekends please call [phone] and ask for the Vascular Fellow wetlands conservation laborer. documented in this encounter Medications at Time [...] Discharge Note Patient Destination: [facility] ([facility] [address] [place] [address] Transportation: with (at bedside) Time of Discharge: by 12 noon Level of Care: swing Patient Aware: yes Family Notified: yes Md to call report to: Yissel Quintero BUSHING PRESS OPERATOR already called RN to call report to: [phone] Shirin Wolf Office of Care Management Pager [phone] Shirin Wolf RN - 08/16/2017 10:50 AM EST [facility] has offered pt swing bed. Pt and accept bed. will transport via car. BUSHING PRESS OPERATOR Yissel Quintero aware; d/c paperwork will be completed by 12 noon. [facility] requests pt arrival by 1400 today; BUSHING PRESS OPERATOR, RN, and family aware. BUSHING PRESS OPERATOR called [facility] and was told that they prefer pt to arrive with wound vac dressing applied but clamped. BUSHING PRESS OPERATOR applied new wound vac dressing. RN has [facility] number to call report. PASSR completed; BUSHING PRESS OPERATOR paged to request provider signature in highlighted space. Indigo from [facility] notified via email that home wound vac now cancelled; [facility]ORES has picked up from room and order cancelled. Packet started and provided to ammunition officer. Medicare important message explained to patient, patient signed. Copy provided to patient and signature page to OCM for inclusion in pt EMR. Radha Georges - 08/16/2017 10:34 AM EST Office of Care Management/Collection Teller Patient Name: Gregory Hoang : 1945 Patient has been offered a swing bed at [facility]. The patient will be transported by private transportation. No MD to MD report necessary Please call Nursing Report to [phone], ask for risk compliance manager. Info to accompany patient: Narcotic Prescriptions Copies of Medication Administration Records and IV sheets for past 10 days. Plan: Collection Teller will be available to the patient and Deicer Inspector Electric-RN and/or Aquaculturist for further assistance. Patient will be discharged to: [place] [id number] Radha Powers, Collection Teller Mira Black, VAMSI - 08/15/2017 10:05 PM EST [address] Flores to ask if he wanted to hold metoprolol dose. BP 95/58. OK to hold this dose Cuortney Brito - 08/15/2017 3:26 PM EST Office of Care Management(OCM)/Collection Teller(RS)/ D/C Planning re : Patient is medically ready for d/c today. RS has been in contact with [facility] to see if they could offer a bed. [facility] is still reviewing the case and need their MD to review chart prior to accepting or declining. OCM team needs to check in with [facility] tomorrow to check on status. 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 Await recommendations from PT. Covering pager #[phone]. 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 Graphics Edit Technician Kaitlin Saha, RN Pager #[phone] Payam Rosales - 08/13/2017 2:37 PM EST Panel Sewer Encounter Note Patient Name: Gregory Hoang : [id number] MR#: [id number] Admit Date: 08/06/2017 1:41 PM Hospital Day 7 days Narrative: Visited to introduce and assess acceptance of Panel Sewer services. Pt was awake, alert, oriented and in chair and family was there. Assessment:Patient coping positively with stresses of illness/hospitalization at this time. Pt says that he is hoping to get better and his family was there. Pt says that he has family care and supportand taking one day at time. Intervention and Outcome: Provided emotional support and encouraging presence. 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 A letter describing our affiliations was reviewed with them and theywere educated about their right to choose where referrals are placed. Patient requests referral to [facility] [employer]. PHONE: [phone] FAX: [phone]. And Home NPWT (Negative Pressure Wound Therapy) aka wound vac device made available to pt. Serial # confirmed. Reviewed [facility] Proof of Delivery/Assignment of Benefits Statement(POD/AOB) Form w patient or authorized agent signing on behalf of patient. Copy of POD/AOB provided to pt and other copy faxed to [employer] @ fax# [phone] Expected date of discharge: 08/12/2017. 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 Address: [address] [place] [address] [place] [address] (home) Mobile: Telephone Information: Referring Provider: No [...] SETUP performed by Manny Mcknight MD at [facility] MAIN OR ??? PRO CABG, ARTERIAL, SINGLE N/A 07/07/2017 @CABG, USING ARTERIAL GRAFT;SINGLE ARTERIAL GRAFT (WRVU 33.75) performed by Yuan Retana MD at [facility] MAIN OR ??? PRO CABG, ARTERY-VEIN, TWO N/A 07/07/2017 @CABG, TWO VENOUS GRAFTS & ARTERIAL GRAFT (WRVU 7.93) performed by Yuan Retana MD at [facility] MAIN OR ??? PRO COLONOSCOPY, REMV LESN, SNARE 01/16/2014 COLONOSCOPY, POLYPECTOMY, REMOVAL LESION BY SNARE performed by Nohemi Jaimes MD at [facility] ENDOSCOPY ??? PRO ENDOSCOPY W/VIDEO-ASST VEIN HARVEST, CABG Right 07/07/2017 ENDOSCOPIC HARVEST VEIN(S) FOR CABG (WRVU 0.31) performed by Yuan Retana MD at [facility] MAIN OR ??? 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 Address: [address] [place] [address] [place] [address] (home) Mobile: Telephone Information: Referring Provider: No [...] SETUP performed by Manny Mcknight MD at [facility] MAIN OR ??? PRO CABG, ARTERIAL, SINGLE N/A 07/07/2017 @CABG, USING ARTERIAL GRAFT;SINGLE ARTERIAL GRAFT (WRVU 33.75) performed by Yuan Retana MD at [facility] MAIN OR ??? PRO CABG, ARTERY-VEIN, TWO N/A 07/07/2017 @CABG, TWO VENOUS GRAFTS & ARTERIAL GRAFT (WRVU 7.93) performed by Yuan Retana MD at [facility] MAIN OR ??? PRO COLONOSCOPY, REMV LESN, SNARE 01/16/2014 COLONOSCOPY, POLYPECTOMY, REMOVAL LESION BY SNARE performed by Nohemi Jaimes MD at [facility] ENDOSCOPY ??? PRO ENDOSCOPY W/VIDEO-ASST VEIN HARVEST, CABG Right 07/07/2017 ENDOSCOPIC HARVEST VEIN(S) FOR CABG (WRVU 0.31) performed by Yuan Retana MD at [facility] MAIN OR ??? 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 Unsuccessful draw attempt, another corporate executive will come 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 Vascular resident wetlands conservation laborer and will forward result to the team prior to rounds. 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 Plan to try a small dose of [...] addition to a pseudoaneurysm of his R MUSHROOM PRESS OPERATOR and bilateral anterior tibial artery occlusions. [...] SETUP performed by Manny Mcknight MD at [facility] MAIN OR ??? PRO CABG, ARTERIAL, SINGLE N/A 07/07/2017 @CABG, USING ARTERIAL GRAFT;SINGLE ARTERIAL GRAFT (WRVU 33.75) performed by Yuan Retana MD at [facility] MAIN OR ??? PRO CABG, ARTERY-VEIN, TWO N/A 07/07/2017 @CABG, TWO VENOUS GRAFTS & ARTERIAL GRAFT (WRVU 7.93) performed by Yuan Retana MD at [facility] MAIN OR ??? PRO COLONOSCOPY, REMV LESN, SNARE 01/16/2014 COLONOSCOPY, POLYPECTOMY, REMOVAL LESION BY SNARE performed by Nohemi Jaimes MD at [facility] ENDOSCOPY ??? PRO ENDOSCOPY W/VIDEO-ASST VEIN HARVEST, CABG Right 07/07/2017 ENDOSCOPIC HARVEST VEIN(S) FOR CABG (WRVU 0.31) performed by Yuan Retana MD at [facility] MAIN OR ??? PRO THYROIDECTOMY 03/28/2013 THYROIDECTOMY, TOTAL OR COMPLETE performed by Manny Mcknight MD at [facility] MAIN OR Functional Status/Social Hx: [...] of nonopacification; splenic infarcts not Excluded. Assessment: Gergory Hoang is a 72 y.o. 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 Completion RLE angiogram 6. L MUSHROOM PRESS OPERATOR angiogram 7. 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 - L MUSHROOM PRESS OPERATOR angriogram demonstrated: High femoral bifurcation over the proximal half of the femoral head. L MUSHROOM PRESS OPERATOR access in the distal L MUSHROOM PRESS OPERATOR. - Closure device: Mynx Technical Procedure: [...] for a 45cm 5F Destination. V18 and Spearfish and QuickCross catheters were used to select [...] 5F. A stationed picture of the L MUSHROOM PRESS OPERATOR was performed as the patient was noted to have a very high bifurcation. Access appeared in the distal R MUSHROOM PRESS OPERATOR. Closure and sheath removal was performed [...] PM EST 1440 report called to 5 [place] nurse Tessa AGUSTIN documented in this encounter [...] pt and pt's spouse. Discharge to [facility]. Goal: Individualization & Mutuality Outcome: Outcome [...] sit/sit to supine -- Bed Mobility Goal, [place]otin Level independent -- Bed Mobility Goal, Date [...] days -- Transfer Training Goal, Activity Type ihn-cq-jcjgv/muesg-ow-fkc -- Transfer Train Goal, [place] Level conditional independence -- Transfer Train Goal, [...] call cabello within reach, Hourly rounding by RN/STAFF SUBMARINE WARFARE OFFICER. Bed alarm / Chair alarm. Patient-specific fall [...] Operative Note Patient Name: Gregory Hoang : [id number] MR#: [id number] Case Date: 08/09/2017 Surgeon: Surgeon(s) and Role: [...] 2.5x80 5. Completion RLE angiogram 6. L MUSHROOM PRESS OPERATOR angiogram 7. Mynx closure Precautions/Restrictions: fall, [...] other (see comments) (or swing bed) Pager: [phone] BASSAM ELIAS, PT 08/14/2017 Inpatient Physical Therapy [...] to Achieve by discharge Gait Training Goal, [place] Level conditional independence;set up required Gait Training [...] facilities over the weekend except for [facility]. CM spoke with [facility] CM Drea Sandhu, VAMSI who said that they do not anticipate any beds over the weekend. Reviewed with patient/ that they need to be aware that patient will need to take the first bed offered at the facilities that they make referrals to. Their choices are: 1- [facility] PHONE: [phone] FAX: [phone] 2- [facility] ([facility]) [address] [place] [address] 3- [facility]) [address] [place] [address] I have discussed Medicare/Private Insurance [...] RS/CM on Wednesday to follow-up. Covering pager #[phone] for today. Plan of Care - Henrique [...] with additional findings of pseudoaneurysm on R MUSHROOM PRESS OPERATOR and bilateral anterior tibial artery occlusions. [...] an outpatient once discharged. Have patient call [phone] to set up an appointment. Follow-up: Dermatology will sign-off for now. Please do not hesitate to contact us if you have any questions orconcerns. Impression and Recommendations discussed with primary team on 08/13/2017. Karo Henderson MD Resident in Dermatology Section of Dermatology, Department of Surgery [facility] Pager [phone] Patient seen and evaluated with staff Beck Operator: Halima Cordero MD Section of Dermatology [facility] Level of Resident Supervision: [...] 2.5x80 5. Completion RLE angiogram 6. L MUSHROOM PRESS OPERATOR angiogram 7. Mynx closure Active Non-Hospital [...] home with home health ([facility] PT[facility]OT) Pager: [phone] YASIR TELLO OT 08/12/2017 Occupational Therapy Rehabilitation [...] 2.5x80 5. Completion RLE angiogram 6. L MUSHROOM PRESS OPERATOR angiogram 7. Mynx closure Past Medical [...] with 24/7 assistance and maximal services) Pager: [phone] NICHOLAS MORA, PT 08/12/2017 Physical Therapy Rehabilitation [...] sit/sit to supine -- Bed Mobility Goal, [place]otin Level independent -- Bed Mobility Goal, Outcome Achieved -- goal ongoing Goal: Gait Training Goal Stand Alone Therapy Goal Outcome: Ongoing (Interventions Implemented as Appropriate) 08/11/17 1310 08/12/17 1510 Gait Training Goal Gait Training Goal, Date Established 08/11/17 -- Gait Training Goal, Time to Achieve 5 - 7 days -- Gait Training Goal, Asotin Level conditional independence -- Gait Training Goal, [...] days -- Transfer Training Goal, Activity Type uvt-ip-mlrck/bxfra-gs-pdj -- Transfer Train Goal, [place]otin Level conditional independence -- Transfer Training Goal, [...] Operative Note Patient Name: Gregory Hoang : [id number] MR#: [id number] Case Date: 08/11/2017 Surgeon: Surgeon(s) and Role: [...] 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 Completion RLE angiogram 6. L MUSHROOM PRESS OPERATOR angiogram 7. Mynx closure He is [...] Anticipated Discharge Disposition: inpatient rehabilitation facility Pager: [phone] LAWRENCE GONZALEZ, PT 08/11/2017 Physical Therapy Rehabilitation [...] to sit/sit to supine Bed Mobility Goal, [place] Level independent Goal: Gait Training Goal Stand Alone Therapy Goal Outcome: Ongoing (Interventions Implemented as Appropriate) 08/11/17 1310 Gait Training Goal Gait Training Goal, Date Established 08/11/17 Gait Training Goal, Time to Achieve 5 - 7 days Gait Training Goal, [place]otin Level conditional independence Gait Training Goal, Assist [...] 7 days Transfer Training Goal, Activity Type qen-jd-knkiq/qeedu-hg-dsw Transfer Train Goal, [place]otin Level conditional independence Plan of [facility] Annetta Sandoval RN - 08/11/2017 7:21 [...] call cabello within reach, Hourly rounding by RN/STAFF SUBMARINE WARFARE OFFICER. Bed alarm / Chair alarm. ? Patient-specific [...] Kisha Hoang [facility] [phone] Current Coping/Education/Information Needs: pt and spouse state [...] Health/Prescription Coverage: Primary Insurance: MEDICARE Secondary Insurance: [facility] Prescription Coverage: See above Preferred Pharmacy: [id number] Other: N/A Primary Care Provider: Lovely Vicente MD [phone] Patient/Caregiver Goals of Treatment: Patient plans to [...] of care planning. Kaitlin Saha RN Pager: [phone] Plan of Care - Melba Jaramillo RN [...] call cabello within reach, Hourly rounding by RN/STAFF SUBMARINE WARFARE OFFICER. Bed alarm / Chair alarm. Patient-specific fall [...] at bedside and MD TEAM Carrying pager [phone] contacted (via Radio page) and notified of [...] MD [facility] [place], [place] [address] (Wo rk) 05/28/2022 Laboratory Appointment Lab 05/28/2022 Office Visit Cardiology Zulma Dolan [place] [facility] [address] Liz Poole PA [facility] [place] [address] 06/10/2022 Office Visit Dermatology Laura Scherer MD [facility] DR [address], [place] [address] (Wo rk) documented as [...] [facility] mg/dL [facility] LABORATORY Comment: [...] Organization Address City/State/[place] [address] (ABNORMAL) Differential, Automated (08/16/2017 5:08 AM EST) [facility] Method Time Signature Neutrophils % 73.9 % [facility] LABORATORY Neutr Abs (ANC) 5.37 1.70 - [facility] 6.10 [facility] x10(3)/[facility] LABORATORY Lymphocytes % 10.1 % [facility]ORY Lymphocytes Abs 0.7 (L) 0.9 - 3.2 [facility] x10(3)/[facility] LABORATORY Monocytes % 10.1 % [facility] LABOR[facility]ORY Monocyte Abs 0.7 0.3 - 0.9 [facility] x10(3)/[facility] LABORATORY Eosinophils % 5.1 % [facility]ORY Eosinophils Abs 0.4 0.0 - 0.4 [facility] x10(3)/[facility] LABORATORY Basophils % 0.4 % [facility]ORY Basophils Abs 0.0 0.0 - 0.1 [facility] x10(3)/[facility] LABORATORY Immature Gran % 0.40 % [...] Abs 0.03 0.00 - 0.04 x10(3)/[facility] Y [facility]3] LABORATORY Specimen Anatomical Collection Method Collection Time Receive d Time (Source) Location / / Volume Laterality Blood specimen 08/16/2017 5:08 AM 018 5:20 (specimen) EST AM EST Resulting Agency Comment Spec In Lab Yonathan Smith MD HEMATOLOGY ORDERABLES Performing Organization Address City/State/[place] [address] (ABNORMAL) Hemogram (08/16/2017 5:08 AM EST) Analysis Performed At Patho logist Time Signature WBC 7.3 4.0 - 9.5 [facility] x10(3)/[facility] LABORATORY RBC 3.36 (L) 4.58 - [facility] 5.54 [facility] x10(6)/[facility] LABORATORY Hemoglobin 9.7 (L) 13.7 [facility] 16.[facility] gm/dL [facility] Hematocrit 30.3 (L) 40.5 [facility] 48.5 % [facility]ORY MCV 90.2 82.9 [facility] 93.1 [facility] LABORATORY MCH 28.9 27.5 - [facility] 32.1 pg [facility] LABORATORY MCHC 32.0 32.0 - [facility] 35.7 gm/dL [facility] LABORATORY Platelets 282 145 - 357 [facility] x10(3)/[facility] LABORATORY RDWSD 53.9 (H) 36.0 - [facility] 45.0 [facility] LABORATORY RDWCV 16.5 (H) 11.4 - [facility] SU 13.8 % [facility] LABORATORY MPV 9.0 7.6 - 12.9 [facility] LABORATORY nRBC % Auto 0.0 % [facility] LABORATORY nRBC Abs Auto 0.000 0.000 - [facility] SU 0.000 [facility] x10(3)/[facility] LABORATORY Specimen Anatomical Collection Method Collection Time Receive d Time (Source) Location / / Volume Laterality Blood specimen 08/16/2017 5:08 AM 018 5:20 (specimen) EST AM EST Resulting Agency Comment Spec In Lab Yonathan Smith MD HEMATOLOGY ORDERABLES Performing Organization Address City/State/[place] [address] (ABNORMAL) Basic Metabolic Panel (non-fasting) (08/16/2017 5:08 AM EST) P athologist Signature Glucose Lvl 141 65 - 199 [facility] mg/dL [facility] LABORATORY Comment: Diabetes: >=200 mg/dL plus [...] or in patients with acute kidney failure. [email or web address] [email or web address] Specimen Anatomical Collection Method Collection Time Receive d Time (Source) Location / / Volume Laterality Blood specimen 08/16/2017 5:08 AM 018 5:20 (specimen) EST AM EST Resulting Agency Comment Spec In Lab Yonathan Smith MD CHEMISTRY ORDERABLES Performing Organization Address City/State/[place] [address] (ABNORMAL) Prothrombin Time (08/16/2017 [...] Address City/State/ZIP Code Phon e Number [address] POCT Glucose (08/16/2017 4:09 AM EST) athologist Signature POC Glucose 147 65 - [address] [facility]/dL [facility] Comment: [...] Organization Address City/State/[place] [address] POCT Glucose (08/15/2017 11:56 PM EST) athologist Signature POC Glucose 176 65 - 199 [facility] SU mg/dL [facility] LABORATORY Comment: [...] Organization Address City/State/[place] [address] POCT Glucose (08/15/2017 8:05 PM EST) athologist Signature POC Glucose 136 65 - 199 [facility] mg/dL [facility] LABORATORY Comment: [...] Organization Address City/State/[place] [address] (ABNORMAL) POCT Glucose (08/15/2017 4:50 PM EST) athologist Signature POC Glucose 232 (H) 65 - 199 [facility] mg/dL [facility] LABORATORY Comment: [...] Organization Address City/State/[place] [address] POCT Glucose (08/15/2017 12:04 PM EST) athologist Signature POC Glucose 135 65 - 199 [facility] mg/dL [facility] LABORATORY Comment: [...] Organization Address City/State/[place] [address] POCT Glucose (08/15/2017 7:36 AM EST) P athologist Signature POC Glucose 124 65 - 199 [facility] mg/dL [facility] LABORATORY Comment: [...] Organization Address City/State/[place] [address] (ABNORMAL) Differential, Automated (08/15/2017 6:22 AM EST) Patholo gist Method Time Signature Neutrophils % 76.1 % [facility] LABORATORY Neutr Abs (ANC) 6.62 (H) 1.70 - [facility] 6.10 [facility] x10(3)/[facility] L LABORATORY Lymphocytes % 9.3 % [facility] LABORATORY Lymphocytes Abs 0.8 (L) 0.9 - 3.2 [facility] x10(3)/[facility] LABORATORY Monocytes % 9.4 % [facility] LABORATORY Monocyte Abs 0.8 0.3 - 0.9 [facility] x10(3)/[facility] LABORATORY Eosinophils % 4.0 % [facility] LABORATORY Eosinophils Abs 0.4 0.0 - 0.4 [facility] x10(3)/[facility] LABORATORY Basophils % 0.6 % [facility] LABORATORY Basophils Abs 0.0 0.0 - 0.1 [facility] x10(3)/[facility] LABORATORY Immature Gran % [...] Organization Address City/State/[place] [address] (ABNORMAL) Hemogram (08/15/2017 6:22 AM EST) Analysis Performed At Patho logist Time Signature WBC 8.7 4.0 - 9.5 [facility] x10(3)/[facility] LABORATORY RBC 3.21 (L) 4.58 - [facility] 5.54 [facility] x10(6)/[facility] LABORATORY Hemoglobin 9.1 (L) 13.7 - [facility] 16.5 gm/dL [facility] LABORATORY Hematocrit 29.0 (L) 40.5 - [facility] 48.5 % [facility] LABORATORY MCV 90.3 82.9 [facility]1 [facility] LABORATORY MCH 28.3 27.5 - [facility] 32.1 pg [facility] LABORATORY MCHC 31.4 (L) 32.0 - [facility]/dL [facility] LABORATORY Platelets 254 145 - 357 [facility] x10(3)/[facility] LABORATORY RDWSD 53.9 (H) 36.0 - [facility] SU 45.0 [facility] LABORATORY RDWCV 16.3 (H) 11.4 - [facility] SU 13.8 % [facility] LABORATORY MPV 8.8 7.6 - 12.9 [facility] LABORATORY nRBC % Auto 0.0 % [facility] LABORATORY nRBC Abs Auto 0.000 0.000 - [facility] SU 0.000 [facility] x10(3)/[facility] LABORATORY Specimen Anatomical Collection Method Collection Time Receive d Time (Source) Location / / Volume Laterality Blood specimen 08/15/2017 6:22 AM 018 6:33 (specimen) EST AM EST Resulting Agency Comment Spec In Lab Yonathan Smith MD HEMATOLOGY ORDERABLES Performing Organization Address City/[facility]/[place] [address] (ABNORMAL) Basic Metabolic Panel (non-fasting) (08/15/2017 6:22 AM EST) athologist Signature Glucose Lvl 118 65 - 199 [facility] mg/dL [facility] LABORATORY Comment: Diabetes: >=200 mg/dL plus [...] or in patients with acute kidney failure. [email or web address] Specimen Anatomical Collection Method Collection Time Receive d Time (Source) Location / / Volume Laterality Blood specimen 08/15/2017 6:22 AM 018 6:33 (specimen) EST AM EST Resulting Agency Comment Spec In Lab Yonathan Smith MD CHEMISTRY ORDERABLES Performing Organization Address City/[facility]/[place] [address] (ABNORMAL) Prothrombin Time (08/15/2017 [...] Organization Address City/State/[place] [address] POCT Glucose (08/15/2017 4:33 AM EST) athologist Signature POC Glucose 164 65 - 199 [facility] mg/dL [facility] LABORATORY Comment: [...] Organization Address City/State/[place] [address] POCT Glucose (08/15/2017 12:12 AM EST) athologist Signature POC Glucose 89 65 - 199 [facility] mg/dL [facility] LABORATORY Comment: [...] Organization Address City/State/[place] [address] (ABNORMAL) POCT Glucose (08/14/2017 8:07 PM EST) athologist Signature POC Glucose 204 (H) 65 - 199 [place] [facility] mg/dL [facility] LABORATORY Comment: [...] Organization Address City/State/[place] [address] POCT Glucose (08/14/2017 5:11 PM EST) athologist Signature POC Glucose 174 65 - 199 [place] mg/dL [facility] LABORATORY Comment: [...] Organization Address City/State/[place] [address] POCT Glucose (08/14/2017 12:10 PM EST) athologist Signature POC Glucose 141 65 - 199 [place] [facility] mg/dL [facility] LABORATORY Comment: [...] Address City/State/ZIP Code Phon e Number [address] POCT Glucose (08/14/2017 8:07 AM EST) P athologist Signature POC Glucose 158 65 - 199 [facility] mg/dL [facility] LABORATORY Comment: Supplemental ranges: <140 mg/dL before meals <180 mg/dL all other times of the day Specimen Anatomical Collection Method Collection Time Receive d Time (Source) Location / / Volume Laterality Blood specimen 08/14/2017 8:07 AM 018 8:07 (specimen) EST AM EST Ynoathan Smith MD POINT OF CARE TEST ORDERABLE S Performing Organization Address City/State/[place] [address] (ABNORMAL) Differential, Automated (08/14/2017 4:52 AM EST) Patholo gist Method Time Signature Neutrophils % 78.6 % [facility] LABORATORY Neutr Abs (ANC) 7.70 (H) 1.70 - [facility] 6.10 [facility] x10(3)/[facility] L LABORATORY Lymphocytes % 7.8 % [facility] LABORATORY Lymphocytes Abs 0.8 (L) 0.9 - 3.2 [facility] x10(3)/[facility] LABORATORY Monocytes % 8.8 % [facility] LABORATORY Monocyte Abs 0.9 0.3 - 0.9 [facility] x10(3)/[facility] LABORATORY Eosinophils % 4.0 % [facility] LABORATORY Eosinophils Abs 0.4 0.0 - 0.4 [facility] x10(3)/[facility] LABORATORY Basophils % 0.5 % [facility] LABORATORY Basophils Abs 0.0 0.0 - 0.1 [facility] x10(3)/[facility] LABORATORY Immature Gran % [...] Melisa Gran Abs 0.03 0.00 - 0.04 x10(3)/[facility] Y [facility]3] LABORATORY Specimen Anatomical Collection Method Collection Time Receive d Time (Source) Location / / Volume Laterality Blood specimen 08/14/2017 4:52 AM 018 5:08 (specimen) EST AM EST Resulting Agency Comment Spec In Lab Yonathan Smith MD HEMATOLOGY ORDERABLES Performing Organization Address City/State/[place] [address] (ABNORMAL) Hemogram (08/14/2017 4:52 AM EST) Analysis Performed At Patho logist Time Signature WBC 9.8 (H) 4.0 - 9.5 [facility] x10(3)/[facility] LABORATORY RBC 3.32 (L) 4.58 - [facility] 5.54 [facility] x10(6)/[facility] LABORATORY Hemoglobin 9.5 (L) 13.7 [facility] gm/dL [facility] LABORATORY Hematocrit 30.3 (L) 40.5 - [facility] SU 48.5 % [facility] LABORATORY MCV 91.3 82.9 - [facility] 93.1 [facility] LABORATORY MCH 28.6 27.5 - [place] [facility] 32.1 pg [facility] LABORATORY MCHC 31.4 (L) 32.0 - [facility] 35.7 gm/dL [facility] LABORATORY Platelets 263 145 - 357 [facility] x[facility](3[facility] LABORATORY RDWSD 54.8 (H) 36.0 - [facility] 45.0 [facility] RDWCV 16.5 (H) 11.4 - [facility] SU 13.8 % [facility] LABORATORY MPV 9.1 7.6 - 12.9 [facility] LABORATORY nRBC % Auto 0.0 % [facility] LABORATORY nRBC Abs Auto 0.000 0.000 - [facility] 0.000 [facility] x10(3)/[facility] LABORATORY Specimen Anatomical Collection Method Collection Time Receive d Time (Source) Location / / Volume Laterality Blood specimen 08/14/2017 4:52 AM 018 5:08 (specimen) EST AM EST Resulting Agency Comment Spec In Lab Yonathan Smith MD HEMATOLOGY ORDERABLES Performing Organization Address City/[facility]/[place] [address] (ABNORMAL) Prothrombin Time (08/14/2017 [...] Organization Address City/State/[place] [address] (ABNORMAL) Basic Metabolic Panel (non-fasting) (08/14/2017 4:52 AM EST) athologist Signature Glucose Lvl 135 65 - 199 [facility] mg/dL [facility] LABORATORY Comment: Diabetes: >=200 mg/dL plus [...] or in patients with acute kidney failure. [email or web address] Specimen Anatomical Collection Method Collection Time Receive d Time (Source) Location / / Volume Laterality Blood specimen 08/14/2017 4:52 AM 018 5:08 (specimen) EST AM EST Resulting Agency Comment Spec In Lab Yonathan Smith MD CHEMISTRY ORDERABLES Performing Organization Address City/State/[place] [address] POCT Glucose (08/14/2017 3:56 AM EST) P athologist Signature POC Glucose 135 65 - 199 [facility] mg/dL [facility] LABORATORY Comment: [...] Address City/State/ZIP [place] [address] POCT Glucose (08/13/2017 11:13 PM EST) athologist Signature POC Glucose 118 65 - 199 [place] [facility] mg/dL [facility] LABORATORY Comment: [...] Address City/[facility]/ZIP Code [place] [address] (ABNORMAL) POCT Glucose (08/13/2017 8:08 PM EST) athologist Signature POC Glucose 204 (H) 65 - 199 [place] mg/dL [facility] LABORATORY Comment: [...] Address City/[facility]/ZIP Code [place] [address] POCT Glucose (08/13/2017 4:02 PM EST) athologist Signature POC Glucose 145 65 - 199 [place] mg/dL [facility] LABORATORY Comment: [...] Organization Address City/State/[place] [address] POCT Glucose (08/13/2017 11:31 AM EST) P athologist Signature POC Glucose 179 65 - 199 [facility]/dL [facility] LABORATORY Comment: [...] Address City/[facility]/[place] [address] (ABNORMAL) POCT Glucose (08/13/2017 10:16 AM EST) athologist Signature POC Glucose 211 (H) 65 - 199 [facility] mg/dL [facility] LABORATORY Comment: [...] Address City/[facility]/ZIP Code Phon e Number [address] JULIAN, legs, multiple levels (08/13/2017 7:42 AM EST) Component Value Ref Test Analysis Performed At Patholo gist Range Method Time Signature VB Text Department: Vascular Surgery Lab VASCUBASE Report Patient: [id number] (GREGORY HOANG) CPT: 24387 ICD10: I99.8 Referring Physician: YONATHAN SMITH ?? Indications: s/p R 1,2,3 toe amps with red left foot, need n ew baseline Diabetes mellitus: yes ICD10 Diagnosis Code: I99.8 Findings: Right ?Pressure (mm Hg) ?? JULIAN ??Waveform ?TBI ?? Brachial Artery ?138 ? Dorsalis Pedis (Ankle) Arter y ?132 ? 0.94 ??Dorado- Biphasic ? Posterior Tibial (Ankle) Art anila ??154 ? 1.10 ??Dorado-Biphasic ? Fourth Toe ? 67 ? 0.48 [...] 156 65 - 199 [place] mg/dL [facility] LABORATORY Comment: [...] Organization Address City/State/[place] [address] (ABNORMAL) Differential, Automated (08/13/2017 5:33 AM EST) [facility] Method Time Signature Neutrophils % 77.8 % [facility] LABORATORY Neutr Abs (ANC) 7.83 (H) 1.70 - [facility] 6.10 [facility] x10(3)/[facility] L LABORATORY Lymphocytes % 8.4 % [facility] LABORATORY Lymphocytes Abs 0.8 (L) 0.9 - 3.2 [facility] x10(3)/[facility] LABORATORY Monocytes % 8.3 % [facility] LABORATORY Monocyte Abs 0.8 0.3 - 0.9 [facility] x10(3)/[facility] LABORATORY Eosinophils % 4.6 % [facility] LABORATORY Eosinophils Abs 0.5 (H) 0.0 - 0.4 [facility] x10(3)/[facility] LABORATORY Basophils % 0.5 % [facility] LABORATORY Basophils Abs 0.0 0.0 - 0.1 [facility] x10(3)/[facility] LABORATORY Immature Gran % [...] 0.04 x10(3)/[facility]3] LABORATORY Specimen Anatomical Collection Method Collection Time Receive d Time (Source) Location / / Volume Laterality Blood specimen 08/13/2017 5:33 AM 018 6:04 (specimen) EST AM EST Resulting Agency Comment Spec In Lab Yonathan Smith MD HEMATOLOGY ORDERABLES Performing Organization Address City/State/ZIP Code Phon e Number [address] (ABNORMAL) Hemogram (08/13/2017 5:33 AM EST) Analysis Performed At Patho logist Time Signature WBC 10.1 (H) 4.0 - 9.5 [facility] x10(3)/[facility] LABORATORY RBC 3.21 (L) 4.58 - [facility] 5.54 [facility] x10(6)/[facility] LABORATORY Hemoglobin 9.2 (L) 13.7 - [facility] 16.5 gm/dL [facility] LABORATORY Hematocrit 29.6 (L) 40.5 - [facility] 48.5 % [facility] LABORATORY MCV 92.2 82.9 - [facility] 93.1 [facility] LABORATORY MCH 28.7 27.5 - [facility] 32.1 pg [facility] LABORATORY MCHC 31.1 (L) 32.0 - [facility]/dL [facility] LABORATORY Platelets 263 145 - 357 [facility] x10(3)/[facility] LABORATORY RDWSD 54.8 (H) 36.0 - [facility] 45.0 [facility] LABORATORY RDWCV 16.4 (H) 11.4 - [facility] 13.8 % [facility] LABORATORY MPV 9.2 7.6 - 12.9 [facility] LABORATORY nRBC % Auto 0.0 % [facility] LABORATORY nRBC Abs Auto 0.000 0.000 - [facility] 0.000 [facility] x10(3)/[facility] LABORATORY Specimen Anatomical Collection Method Collection Time Receive d Time (Source) Location / / Volume Laterality Blood specimen 08/13/2017 5:33 AM 018 6:04 (specimen) EST AM EST Resulting Agency Comment Spec In Lab Yonathan Smith MD HEMATOLOGY ORDERABLES Performing Organization Address City/State/[place] [address] (ABNORMAL) Prothrombin Time (08/13/2017 [...] City/State/ZIP Code Phon e Number [place] [id number] (ABNORMAL) Basic Metabolic Panel (non-fasting) (08/13/2017 5:33 AM EST) athologist Signature Glucose Lvl 126 65 - 199 [facility] mg/dL [facility] LABORATORY Comment: Diabetes: >=200 mg/dL plus [...] or in patients with acute kidney failure. [email or web address] Specimen Anatomical Collection Method Collection Time Receive d Time (Source) Location / / Volume Laterality Blood specimen 08/13/2017 5:33 AM 018 6:04 (specimen) EST AM EST Resulting Agency Comment Spec In Lab Yonathan Smith MD CHEMISTRY ORDERABLES Performing Organization Address City/[facility]/ZIP [facility] Phon e Number [address] POCT Glucose (08/13/2017 4:29 AM EST) athologist Signature POC Glucose 111 65 - 199 [facility] mg/dL [facility] LABORATORY Comment: [...] Address City/[facility]/ZIP Code Phon e Number [address] POCT Glucose (08/12/2017 11:28 PM EST) athologist Signature POC Glucose 164 65 - [address] [facility] LABORATORY Comment: [...] Address City/[facility]/[place] [address] (ABNORMAL) POCT Glucose (08/12/2017 7:40 PM EST) athologist Signature POC Glucose 209 (H) 65 - 199 [facility] mg/dL [facility] LABORATORY Comment: [...] Address City/State/ZIP Code Phon e Number [address] POCT Glucose (08/12/2017 4:24 PM EST) athologist Signature POC Glucose 161 65 - [address] [facility] [address]dL [facility] LABORATORY Comment: [...] Organization Address City/State/[place] [address] POCT Glucose (08/12/2017 12:00 PM EST) athologist Signature POC Glucose 167 65 - 199 [place] mg/dL [facility] LABORATORY Comment: [...] Organization Address City/State/[place] [address] POCT Glucose (08/12/2017 7:25 AM EST) P athologist Signature POC Glucose 152 65 - 199 [facility] mg/dL [facility] LABORATORY Comment: [...] Organization Address City/State/[place] [address] (ABNORMAL) Differential, Automated (08/12/2017 6:29 AM EST) Patholo gist Method Time Signature Neutrophils % 78.7 % [facility] LABORATORY Neutr Abs (ANC) 7.94 (H) 1.70 - [facility] 6.10 [facility] x10(3)/[facility] LABORATORY Lymphocytes % 8.8 % [facility] LABORATORY Lymphocytes Abs 0.9 0.9 - 3.2 [facility] x10(3)/[facility] LABORATORY Monocytes % 7.8 % [facility] LABORATORY Monocyte Abs 0.8 0.3 - 0.9 [facility] x10(3)/[facility] LABORATORY Eosinophils % 3.9 % [facility] LABORATORY Eosinophils Abs 0.4 0.0 - 0.4 [facility] x10(3)/[facility] LABORATORY Basophils % 0.3 % [facility] LABORATORY Basophils Abs 0.0 0.0 - 0.1 [facility] x10(3)/[facility] LABORATORY Immature Gran % [...] Organization Address City/State/[place] [address] (ABNORMAL) Hemogram (08/12/2017 6:29 AM EST) Analysis Performed At Patho logist Time Signature WBC 10.1 (H) 4.0 - 9.5 [facility] x10(3)/[facility] LABORATORY RBC 3.02 (L) 4.58 - [facility] 5.54 [facility] x10(6)/[facility] LABORATORY Hemoglobin 8.7 (L) 13.7 - [facility] 16.5 gm/dL [facility] LABORATORY Hematocrit 28.1 (L) 40.5 - [facility] 48.5 % [facility] LABORATORY MCV 93.0 82.9 - [facility] 93.1 [facility] LABORATORY MCH 28.8 27.5 - [facility] 32.1 pg [facility] LABORATORY MCHC 31.0 (L) 32.0 - [facility] 35.7 gm/dL [facility] LABORATORY Platelets 223 145 - 357 [facility] x10(3)/[facility] LABORATORY RDWSD 56.1 (H) 36.0 - [facility] 45.0 [facility] LABORATORY RDWCV 16.4 (H) 11.4 - [facility] SU 13.8 % [facility] LABORATORY MPV 9.0 7.6 - 12.9 [facility] LABORATORY nRBC % Auto 0.0 % [facility] LABORATORY nRBC Abs Auto 0.000 0.000 - [facility] SU 0.000 [facility] x10(3)/[facility] LABORATORY Specimen Anatomical Collection Method Collection Time Receive d Time (Source) Location / / Volume Laterality Blood specimen 08/12/2017 6:29 AM 018 6:38 (specimen) EST AM EST Resulting Agency Comment Spec In Lab Yonathan Smith MD HEMATOLOGY ORDERABLES Performing Organization Address City/[facility]/[place] [address] (ABNORMAL) Prothrombin Time (08/12/2017 [...] MD HEMATOLOGY ORDERABLES Performing Organization Address City/[facility]/[place] [address] (ABNORMAL) Basic Metabolic Panel (non-fasting) (08/12/2017 6:29 AM EST) athologist Signature Glucose Lvl 151 65 - 199 [facility] mg/dL [facility] LABORATORY Comment: Diabetes: >=200 mg/dL plus [...] or in patients with acute kidney failure. [email or web address] Specimen Anatomical Collection Method Collection Time Receive d Time (Source) Location / / Volume Laterality Blood specimen 08/12/2017 6:29 AM 018 6:38 (specimen) EST AM EST Resulting Agency Comment Spec In Lab Yonathan Smith MD CHEMISTRY ORDERABLES Performing Organization Address City/[facility]/ZIP Code Phon e Number [address] POCT Glucose (08/12/2017 4:08 AM EST) athologist Signature POC Glucose 181 65 - 199 [facility] LAB[facility]ORY Comment: [...] Address City/[facility]/[place] [address] (ABNORMAL) POCT Glucose (08/12/2017 12:17 AM EST) athologist Signature POC Glucose 221 (H) 65 - 199 [facility]/dL [facility] LABORATORY Comment: [...] Organization Address City/State/[place] [address] (ABNORMAL) POCT Glucose (08/11/2017 8:52 PM EST) athologist Signature POC Glucose 221 (H) 65 - 199 [place] mg/dL [facility] LABORATORY Comment: [...] Address City/[facility]/[place] [address] POCT Glucose (08/11/2017 5:59 PM EST) athologist Signature POC Glucose 169 65 - 199 [place] mg/dL [facility] LABORATORY Comment: [...] Organization Address City/State/[place] [address] (ABNORMAL) POCT Glucose (08/11/2017 4:08 PM EST) athologist Signature POC Glucose 240 (H) 65 - 199 [place] mg/dL [facility] LABORATORY Comment: [...] Address City/State/ZIP Code Phon e Number [address] POCT Glucose (08/11/2017 12:04 PM EST) athologist Signature POC Glucose 182 65 - [address] [address] Comment: [...] Address City/[facility]/[place] [address] POCT Glucose (08/11/2017 7:31 AM EST) athologist Signature POC Glucose 156 65 - [address] [facility] [address] [facility]dL [facility] Comment: [...] Address City/State/ZIP Code Phon e Number [address] (ABNORMAL) Differential, Automated (08/11/2017 6:16 AM EST) [facility] gist Method Time Signature Neutrophils % 83.7 % [facility] LABORATORY Neutr Abs (ANC) 10.76 (H) 1.70 - [facility] 6.10 [facility] x10(3)/[facility] L LABORATORY Lymphocytes % 6.0 % [facility]ORY Lymphocytes Abs 0.8 (L) 0.9 - 3.2 [facility] x10(3)/[facility] LABORATORY Monocytes % 7.5 % [facility] Monocyte Abs 1.0 (H) 0.3 - 0.9 [facility] x10(3)/[facility] LABORATORY Eosinophils % 2.0 % [facility]ORY Eosinophils Abs 0.3 0.0 - 0.4 [facility] x10(3)/[facility] LABORATORY Basophils % 0.3 % [facility]ORATORY Basophils Abs 0.0 0.0 - 0.1 [facility] x10(3)/[facility] LABORATORY Immature Gran % [...] Gran Abs 0.06 (H) 0.00 - 0.04 x10(3)/[facility] LABORATORY Specimen Anatomical Collection Method Collection Time Receive d Time (Source) Location / / Volume Laterality Blood specimen 08/11/2017 6:16 AM 018 6:24 (specimen) EST AM EST Resulting Agency Comment Spec In Lab Yonathan Smith MD HEMATOLOGY ORDERABLES Performing Organization Address City/State/[place] [address] (ABNORMAL) Hemogram (08/11/2017 6:16 AM EST) Analysis Performed At Patho logist Time Signature WBC 12.9 (H) 4.0 - 9.5 [facility] x10(3)/[facility] LABORATORY RBC 3.28 (L) 4.58 - [facility] 5.54 [facility] x10(6)/[facility] LABORATORY Hemoglobin 9.5 (L) 13.7 - [facility] 16.5 gm/dL [facility] Hematocrit 29.8 (L) 40.5 - [place] [facility] 48.5 % [facility] MCV 90.9 82.9 - [facility]1 [facility] LABORATORY MCH 29.0 27.5 - [place] 32.1 [facility] LABORATORY MCHC 31.9 (L) 32.0 - [place] 35.7 gm/dL [facility] Platelets 236 145 - 357 [facility] x10(3)/[facility] LABORATORY RDWSD 53.5 (H) 36.0 - [place] [facility] 45.0 [facility] LABORATORY RDWCV 16.3 (H) 11.4 - [facility] 13.8 % [facility]ORY MPV 8.8 7.6 - 12.9 [facility] nRBC % Auto 0.0 % [facility] nRBC Abs Auto 0.000 0.000 - [facility] 0.000 [facility] x10(3)/[facility] LABORATORY Specimen Anatomical Collection Method Collection Time Receive d Time (Source) Location / / Volume Laterality Blood specimen 08/11/2017 6:16 AM 018 6:24 (specimen) EST AM EST Resulting Agency Comment Spec In Lab Yonathan Smith MD HEMATOLOGY ORDERABLES Performing Organization Address City/State/ZIP Code Phon e Number [place] [id number]OSP[address] LAB[address]ORY [address] (ABNORMAL) Prothrombin Time (08/11/2017 [...] Organization Address City/State/[place] [address] Basic Metabolic Panel (non-fasting) (08/11/2017 6:16 AM EST) P athologist Signature Glucose Lvl 139 65 - 199 [facility] mg/dL [facility] Comment: Diabetes: >=200 mg/dL plus [...] or in patients with acute kidney failure. [email or web address] Specimen Anatomical Collection Method Collection Time Receive d Time (Source) Location / / Volume Laterality Blood specimen 08/11/2017 6:16 AM 018 6:24 (specimen) EST AM EST Resulting Agency Comment Spec In Lab Yonathan Smith MD CHEMISTRY ORDERABLES Performing Organization Address City/State/ZIP Code Phon e Number [address] POCT Glucose (08/11/2017 4:07 AM EST) athologist Signature POC Glucose 162 65 - 199 [place] mg/dL [facility] Comment: [...] Address City/[facility]/ZIP Code Phon e Number [place] [address] POCT Glucose (08/10/2017 11:59 PM EST) athologist Signature POC Glucose 166 65 - 199 [place] mg/dL [facility] Comment: [...] Address City/[facility]/ZIP Code Phon e Number [place] [address] POCT Glucose (08/10/2017 8:12 PM EST) athologist Signature POC Glucose 156 65 - 199 [place] [facility] mg/dL [facility] Comment: [...] Organization Address City/State/[place] [address] (ABNORMAL) POCT Glucose (08/10/2017 4:42 PM EST) P athologist Signature POC Glucose 211 (H) 65 - 199 [facility]dL [facility] Comment: [...] Address City/State/ZIP Code Phon e Number [address] (ABNORMAL) Differential, Automated (08/10/2017 2:30 PM EST) Patholo gist Method Time Signature Neutrophils % 87.6 % [facility]OR[facility]ORY Neutr Abs (ANC) 9.90 (H) 1.70 - [facility] 6.10 [facility] x10(3)/[facility] L LABORATORY Lymphocytes % 4.3 % [facility] Lymphocytes Abs 0.5 (L) 0.9 - 3.2 [facility] x10(3)/[facility] LABORATORY Monocytes % 6.0 % [facility]ORY Monocyte Abs 0.7 0.3 - 0.9 [facility] x10(3)/[facility] LABORATORY Eosinophils % 1.1 % [facility]ORY Eosinophils Abs 0.1 0.0 - 0.4 [facility] x10(3)/[facility] LABORATORY Basophils % 0.4 % [facility]OR[facility]ORY Basophils Abs 0.0 0.0 - 0.1 [facility] x10(3)/[facility] LABORATORY Immature Gran % [...] Gran Abs 0.07 (H) 0.00 - 0.04 x10(3)/[facility] LABORATORY Specimen Anatomical Collection Method Collection Time Receive d Time (Source) Location / / Volume Laterality Blood specimen 08/10/2017 2:30 PM 018 2:48 (specimen) EST PM EST Resulting Agency Comment Spec In Lab Yonathan Smith MD HEMATOLOGY ORDERABLES Performing Organization Address City/State/[place] [address] (ABNORMAL) Hemogram (08/10/2017 2:30 PM EST) Analysis Performed At Patho logist Time Signature WBC 11.3 (H) 4.0 - 9.5 [facility] x10(3)/[facility] LABORATORY RBC 3.13 (L) 4.58 - [facility] SU 5.54 [facility] x10(6)/[facility] LABORATORY Hemoglobin 8.9 (L) 13.7 - [facility] 16.[facility] gm/dL [facility] Hematocrit 28.4 (L) 40.5 - [facility] 48.5 % [facility] MCV 90.7 82.9 - [facility] 93.1 [facility] LABORATORY MCH 28.4 27.5 - [facility] 32.1 pg [facility] MCHC 31.3 (L) 32.0 - [facility] 35.7 gm/dL [facility] Platelets 213 145 - 357 [facility] x10(3)/[facility] LABORATORY RDWSD 53.7 (H) 36.0 - [facility] 45.0 [facility] LABORATORY RDWCV 16.4 (H) 11.4 - [facility] SU 13.8 % [facility] LABORATORY MPV 8.9 7.6 - 12.9 [facility] LABORATORY nRBC % Auto 0.0 % [facility] nRBC Abs Auto 0.000 0.000 - [facility] 0.000 [facility] x10(3)/[facility] LABORATORY Specimen Anatomical Collection Method Collection Time Receive d Time (Source) Location / / Volume Laterality Blood specimen 08/10/2017 2:30 PM 018 2:48 (specimen) EST PM EST Resulting Agency Comment Spec In Lab Yonathan Smith MD HEMATOLOGY ORDERABLES Performing Organization Address City/State/[place] [address] (ABNORMAL) POCT Glucose (08/10/2017 1:50 PM EST) athologist Signature POC Glucose 243 (H) 65 - [address] [facility] Comment: [...] Address City/[facility]/[place] [address] POCT Glucose (08/10/2017 11:21 AM EST) athologist Signature POC Glucose 156 65 - [address] [address]dL [facility] Comment: [...] Organization Address City/State/[place] [address] (ABNORMAL) Differential, Automated (08/10/2017 10:28 AM EST) [facility] gist Method Time Signature Neutrophils % 85.3 % [facility]ORATORY Neutr Abs (ANC) 9.43 (H) 1.70 - [facility] SU 6.10 [facility] x10(3)/[facility] L LABORATORY Lymphocytes % 5.5 % [facility] LABORATORY Lymphocytes Abs 0.6 (L) 0.9 - 3.2 [facility] x10(3)/[facility] LABORATORY Monocytes % 5.9 % [facility] LABORATORY Monocyte Abs 0.6 0.3 - 0.9 [facility] x10(3)/[facility] LABORATORY Eosinophils % 2.1 % [facility] LABORATORY Eosinophils Abs 0.2 0.0 - 0.4 [facility] x10(3)/[facility] LABORATORY Basophils % 0.4 % [facility]OR[facility]ORY Basophils Abs 0.0 0.0 - 0.1 [facility] x10(3)/[facility] LABORATORY Immature Gran % [...] Gran Abs 0.09 (H) 0.00 - 0.04 x10(3)/[facility] LABORATORY Specimen Anatomical Collection Method Collection Time Receive d Time (Source) Location / / Volume Laterality Blood specimen 08/10/2017 10:28 8 (specimen) AM EST 10:35 AM EST Resulting Agency Comment Spec In Lab Yonathan Smith MD HEMATOLOGY ORDERABLES Performing Organization Address City/State/[place] [address] (ABNORMAL) Hemogram (08/10/2017 10:28 AM EST) Analysis Performed At Patho logist Time Signature WBC 11.0 (H) 4.0 - 9.5 [facility] x10(3)/[facility] LABORATORY RBC 3.02 (L) 4.58 - [facility] 5.54 [facility] x10(6)/[facility] LABORATORY Hemoglobin 8.8 (L) 13.7 - [facility] 16.5 gm/dL [facility] Hematocrit 28.1 (L) 40.5 - [place] 48.5 % [facility] MCV 93.0 82.9 - [facility] 93.1 [facility] LABORATORY MCH 29.1 27.5 - [place] 32.1 pg [facility]ORATORY MCHC 31.3 (L) 32.0 - [place] 35.7 gm/dL [facility] Platelets 207 145 - 357 [place] CORY x10(3)/[facility] LABORATORY RDWSD 55.3 (H) 36.0 - [place] 45.0 [facility] LABORATORY RDWCV 16.4 (H) 11.4 - [place] [facility] 13.8 % [facility] LABORATORY MPV 9.0 7.6 - 12.9 [facility] LABORATORY nRBC % Auto 0.0 % [facility]OR[facility] nRBC Abs Auto 0.000 0.000 - [place] [facility] 0.000 [facility] x10(3)/[facility] LABORATORY Specimen Anatomical Collection Method Collection Time Receive d Time (Source) Location / / Volume Laterality Blood specimen 08/10/2017 10:28 8 (specimen) AM EST 10:35 AM EST Resulting Agency Comment Spec In Lab Yonathan Smith MD HEMATOLOGY ORDERABLES Performing Organization Address City/State/ZIP Code Phon e Number [place] [id number] HOSPITAL LAB[address]ORY Drive VS Angiogram/intervention (vascular) (08/10/2017 [...] 2.5x80 5. Completion RLE angiogram 6. L MUSHROOM PRESS OPERATOR angiogram 7. 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 L MUSHROOM PRESS OPERATOR access in the distal L MUSHROOM PRESS OPERATOR. - Closure device: Mynx Technical Procedure: [...] for a 45cm 5F Destination. V18 and Spearfish a nd QuickCross catheters were used to [...] bifurcation. Access appeared in the distal R MUSHROOM PRESS OPERATOR. Closure and sheath removal was performed [...] 2.5x80 5. Completion RLE angiogram 6. L MUSHROOM PRESS OPERATOR angiogram 7. 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 L MUSHROOM PRESS OPERATOR access in the distal L MUSHROOM PRESS OPERATOR. - Closure device: Mynx Technical Procedure: [...] for a 45cm 5F Destination. V18 and Spearfish a nd QuickCross catheters were used to [...] bifurcation. Access appeared in the distal R MUSHROOM PRESS OPERATOR. Closure and sheath removal was performed [...] (ABNORMAL) Differential, Automated (08/10/2017 5:50 AM EST) [facility] Method Time Signature Neutrophils % 80.1 % [facility] LABORATORY Neutr Abs (ANC) 9.01 (H) 1.70 - [facility] 6.10 [facility] x10(3)/[facility] LABORATORY Lymphocytes % 8.8 % [facility]ORATORY Lymphocytes Abs 1.0 0.9 - 3.[address] [facility] x[facility](3[facility] LABORATORY Monocytes % 8.3 % [facility]ORATORY Monocyte Abs 0.9 0.3 - 0.[address] [facility] [address] x[facility](3[facility] LABORATORY Eosinophils % 2.0 % [facility] LABORATORY Eosinophils Abs 0.2 0.0 - 0.4 [facility] x10(3)/[facility] LABORATORY Basophils % 0.4 % [facility]ORATORY Basophils Abs 0.0 0.0 - 0.1 [facility] x10(3)/[facility] LABORATORY Immature Gran % [...] Organization Address City/State/[place] [address] (ABNORMAL) Hemogram (08/10/2017 5:50 AM EST) Analysis Performed At Patho logist Time Signature WBC 11.3 (H) 4.0 - 9.5 [facility] x10(3)/[facility] LABORATORY RBC 3.15 (L) 4.58 - [facility] 5.54 [facility] x10(6)/[facility] LABORATORY Hemoglobin 8.9 (L) 13.7 [facility] 16.5 gm/dL [facility]OR[facility]ORY Hematocrit 29.0 (L) 40.5 [facility] 48.5 % [facility]OR[facility]ORY MCV 92.1 82.9 [facility] 93.1 [facility] LABORATORY MCH 28.3 27.5 - [place] 32.1 pg [facility]ORATORY MCHC 30.7 (L) 32.0 - [facility] 35.7 gm/dL [facility]OR[facility]ORY Platelets 231 145 - 357 [facility] x10(3)/[facility] LABORATORY RDWSD 53.9 (H) 36.0 - [place] [facility] 45.0 [facility] LABORATORY RDWCV 16.2 (H) 11.4 - [facility] SU 13.8 % [facility] LABORATORY MPV 8.7 7.6 - 12.9 [facility] LABORATORY nRBC % Auto 0.0 % [facility] LABORATORY nRBC Abs Auto 0.000 0.000 - [facility] 0.000 [facility] x10(3)/[facility] LABORATORY Specimen Anatomical Collection Method Collection Time Receive d Time (Source) Location / / Volume Laterality Blood specimen 08/10/2017 5:50 AM 018 5:59 (specimen) EST AM EST Resulting Agency Comment Spec In Lab Yonathan Smith MD HEMATOLOGY ORDERABLES Performing Organization Address City/State/[place] [address] (ABNORMAL) Basic Metabolic Panel (non-fasting) (08/10/2017 5:50 AM EST) P athologist Signature Glucose Lvl 135 65 - 199 [facility] mg/dL [facility] Comment: Diabetes: >=200 mg/dL plus [...] or in patients with acute kidney failure. [email or web address] Specimen Anatomical Collection Method Collection Time Receive d Time (Source) Location / / Volume Laterality Blood specimen 08/10/2017 5:50 AM 018 5:59 (specimen) EST AM EST Resulting Agency Comment Spec In Lab Yonathan Smith MD CHEMISTRY ORDERABLES Performing Organization Address [facility] [place] [address] (ABNORMAL) Prothrombin Time (08/10/2017 [...] MD HEMATOLOGY ORDERABLES Performing Organization Address City/[facility] [place] [address] (ABNORMAL) POCT Glucose (08/10/2017 4:01 AM EST) athologist Signature POC Glucose 206 (H) 65 - 199 [facility] mg/dL [facility] Comment: [...] Organization Address City/State/[place] [address] POCT Glucose (08/10/2017 2:01 AM EST) athologist Signature POC Glucose 188 65 - 199 [place] [facility] mg/dL [facility]OR[facility] Comment: [...] Address City/[facility]/[place] [address] (ABNORMAL) POCT Glucose (08/09/2017 11:42 PM EST) athologist Signature POC Glucose 283 (H) 65 - 199 [facility] mg/dL [facility] Comment: [...] Organization Address City/State/[place] [address] POCT Glucose (08/09/2017 8:55 PM EST) athologist Signature POC Glucose 182 65 - 199 [place] [facility] mg/dL [facility] LABOR[facility] Comment: [...] Address City/[facility]/[place] [address] (ABNORMAL) APTT (08/09/2017 6:42 [...] MD HEMATOLOGY ORDERABLES Performing Organization Address City/[facility]/[place] [address] POCT Glucose (08/09/2017 4:41 PM EST) athologist Signature POC Glucose 195 65 - 199 [facility] mg/dL [facility] Comment: [...] Address City/[facility]/[place] [address] POCT Glucose (08/09/2017 12:29 PM EST) athologist Signature POC Glucose 140 65 - 199 [facility] mg/dL [facility]OR[facility] Comment: Supplemental ranges: <140 mg/dL before meals <180 mg/dL all other times of the day Specimen Anatomical Collection Method Collection Time Receive d Time (Source) Location / / Volume Laterality Blood specimen 08/09/2017 12:29 8 (specimen) PM EST 12:29 PM EST Yonathan Smith MD POINT OF CARE TEST ORDERABLE S Performing Organization Address [facility]/ZIP Code Phon e Number [address] POCT Glucose (08/09/2017 9:59 AM EST) P athologist Signature POC Glucose 135 65 - 199 [facility] mg/dL [facility] LABORATORY Comment: Supplemental ranges: <140 mg/dL before meals <180 mg/dL all other times of the day Specimen Anatomical Collection Method Collection Time Receive d Time (Source) Location / / Volume Laterality Blood specimen 08/09/2017 9:59 AM 018 9:59 (specimen) EST AM EST Yonathan Smith MD POINT OF CARE TEST ORDERABLE S Performing Organization Address [facility]/[place] [address] Specimen to Pathology (08/09/2017 [...] Address City/[facility]/[place] [address] Surgical Pathology Report (08/09/2017 8:40 AM EST) Component Value Ref Test Analysis Performed At Patholo gist Range Method Time Signature Surgical [id number] ? Location: [facility]; [facility]; A [facility] Report The signing pathologist [...] [facility] Dept. of Pathology, [place], [place] CLINICAL INFORMATION Specimen Submitted: A - [...] Organization Address City/State/[place] [address] Anaerobic Culture (08/09/2017 8:30 AM EST) [facility] Method Time Signature Anaerobic No anaerobic [place] [facility] Culture organisms [facility] LABORATORY Specimen Anatomical Collection Method [...] GENERAL ORDER ROBSON Performing Organization Address City/[facility]/[place] [address] (ABNORMAL) Abscess/Wound Aspirate Culture (08/09/2017 8:30 AM EST) [facility] Undertone Method Time Signature Abscess/Wound Moderate mixed [facility] Aspirate bacterial CORY Culture morphotypes [facility] normal LABORATORY cutaneous leroy (A) Gram Stain Rare White Blood Cells [place] Few Gram Positive Cocci in pairs CORY () [facility] LABORATORY Organism Gram Positive [place] Cocci in pairs CORY () [facility] LABORATORY Specimen Anatomical Collection Method Collection [...] GENERAL ORDER ROBSON Performing Organization Address City/[facility]/ZIP Code Phon e Number [place] [address] POCT Glucose (08/09/2017 4:28 AM EST) P athologist Signature POC Glucose 128 65 - 199 [facility] mg/dL [facility] Comment: [...] Organization Address City/State/[place] [address] ABORH Recheck Status (08/09/2017 1:10 AM EST) [facility] Method Time Signature ABORH Type Completed [facility] LABORATORY Specimen Anatomical Collection Method Collection Time Receive d Time (Source) Location / / Volume Laterality Blood specimen 08/09/2017 1:10 AM 018 1:35 (specimen) EST AM EST Resulting Agency Comment Spec In Lab Yonathan Smith MD BLOOD BANK ORDERABLES Performing Organization Address City/State/[place] [address] Antibody screen (08/09/2017 1:10 AM EST) [facility] Method [place] Signature Ab Screen Negative [facility] LABORATORY Expires at 08/12/2017 [facility] [id number] on: [facility] LABORATORY Specimen Anatomical Collection Method Collection Time Receive d Time (Source) Location / / Volume Laterality Blood specimen 08/09/2017 1:10 AM 018 1:35 (specimen) EST AM EST Resulting Agency Comment Spec In Lab Yonathan Smith MD BLOOD BANK ORDERABLES Performing Organization Address City/State/[place] [address] ABO/Rh Typing (08/09/2017 1:10 [...] Organization Address City/State/[place] [address] (ABNORMAL) APTT (08/09/2017 1:10 [...] Organization Address City/State/[place] [address] (ABNORMAL) Differential, Automated (08/09/2017 1:10 AM EST) [facility] Method Time Signature Neutrophils % 76.2 % [facility] LABORATORY Neutr Abs (ANC) 8.59 (H) 1.70 - [facility] 6.10 [facility] x10(3)/[facility] LABORATORY Lymphocytes % 11.0 % [facility] LABORATORY Lymphocytes Abs 1.2 0.9 - 3.2 [facility] x10(3)/[facility] LABORATORY Monocytes % 8.4 % [facility] LABORATORY Monocyte Abs 1.0 (H) 0.3 - 0.9 [facility] x10(3)/[facility] LABORATORY Eosinophils % 3.5 % [facility] LABORATORY Eosinophils Abs 0.4 0.0 - 0.4 [facility] x10(3)/[facility] LABORATORY Basophils % 0.5 % [facility] LABORATORY Basophils Abs 0.1 0.0 - 0.1 [facility] x10(3)/[facility] LABORATORY Immature Gran % [...] Organization Address City/State/[place] [address] (ABNORMAL) Hemogram (08/09/2017 1:10 AM EST) Analysis Performed At Patho logist Time Signature WBC 11.3 (H) 4.0 - 9.5 [facility] x10(3)/[facility] LABORATORY RBC 3.47 (L) 4.58 [facility] 5.54 [facility] x10(6)/[facility] LABORATORY Hemoglobin 10.0 (L) 13.7 - [facility] 16.5 gm/dL [facility] LABORATORY Hematocrit 31.9 (L) 40.5 - [facility] 48.5 % [facility] LABORATORY MCV 91.9 82.9 - [facility] 93.1 [facility] LABORATORY MCH 28.8 27.5 - [facility] 32.1 pg [facility] LABORATORY MCHC 31.3 (L) 32.0 - [facility] 35.7 gm/dL [facility] LABORATORY Platelets 234 145 - 357 [facility] x10(3)/[facility] LABORATORY RDWSD 54.0 (H) 36.0 - [facility] 45.0 [facility] LABORATORY RDWCV 16.2 (H) 11.4 - [facility] 13.8 % [facility] LABORATORY MPV 8.7 7.6 - 12.9 [facility] LABORATORY nRBC % Auto 0.0 % [facility] LABORATORY nRBC Abs Auto 0.000 0.000 - [facility] 0.000 [facility] x10(3)/[facility] LABORATORY Specimen Anatomical Collection Method Collection Time Receive d Time (Source) Location / / Volume Laterality Blood specimen 08/09/2017 1:10 AM 018 1:19 (specimen) EST AM EST Resulting Agency Comment Spec In Lab Yonathan Smith MD HEMATOLOGY ORDERABLES Performing Organization Address City/[facility]/[place] [address] (ABNORMAL) Prothrombin Time (08/09/2017 [...] MD HEMATOLOGY ORDERABLES Performing Organization Address City/[facility]/[place] [address] (ABNORMAL) Basic Metabolic Panel (non-fasting) (08/09/2017 1:10 AM EST) P athologist Signature Glucose Lvl 108 65 - 199 [facility] mg/dL [facility] LABORATORY Comment: Diabetes: >=200 mg/dL plus [...] or in patients with acute kidney failure. [email or web address] Specimen Anatomical Collection Method Collection Time Receive d Time (Source) Location / / Volume Laterality Blood specimen 08/09/2017 1:10 AM 018 1:19 (specimen) EST AM EST Resulting Agency Comment Spec In Lab Yonathan Smith MD CHEMISTRY ORDERABLES Performing Organization Address City/State/ZIP Code Phon e Number [address] POCT Glucose (08/09/2017 12:05 AM EST) athologist Signature POC Glucose 128 65 - 199 [facility] mg/dL [facility] LABORATORY Comment: [...] Address City/[facility]/[place] [address] (ABNORMAL) POCT Glucose (08/08/2017 7:36 PM EST) athologist Signature POC Glucose 215 (H) 65 - 199 [facility] mg/dL [facility] LABORATORY Comment: [...] Organization Address City/State/[place] [address] (ABNORMAL) POCT Glucose (08/08/2017 6:23 PM EST) P athologist Signature POC Glucose 216 (H) 65 - 199 [facility] mg/dL [facility] LABORATORY Comment: [...] Address City/[facility]/[place] [address] (ABNORMAL) APTT (08/08/2017 6:00 [...] MD HEMATOLOGY ORDERABLES Performing Organization Address City/[facility]/[place] [address] POCT Glucose (08/08/2017 4:42 PM EST) athologist Signature POC Glucose 78 65 - [address] [facility] mg/dL [facility] LABORATORY Comment: [...] Organization Address City/State/[place] [address] (ABNORMAL) POCT Glucose (08/08/2017 4:01 PM EST) athologist Signature POC Glucose 58 (L) 65 - [address] [facility] mg/dL [facility] LABORATORY Comment: [...] Organization Address City/State/[place] [address] POCT Glucose (08/08/2017 11:51 AM EST) athologist Signature POC Glucose 90 65 - [address] [facility] mg/dL [facility] LABORATORY Comment: [...] Organization Address City/State/[place] [address] (ABNORMAL) APTT (08/08/2017 10:27 [...] Address City/State/ZIP Code Phon e Number [address] POCT Glucose (08/08/2017 8:02 AM EST) athologist Signature POC Glucose 178 65 - 199 [facility] mg/dL [facility] LABORATORY Comment: [...] Address City/[facility]/[place] [address] (ABNORMAL) APTT (08/08/2017 4:51 AM EST) athologist Signature PTT >160 25 - 35 [facility] (Critical) sec [facility] LABORATORY Comment: Called by: HOWARD, Read [...] Organization Address City/State/[place] [address] (ABNORMAL) Differential, Automated (08/08/2017 4:51 AM EST) [facility] gist Method Time Signature Neutrophils % 77.9 % [facility] LABORATORY Neutr Abs (ANC) 8.17 (H) 1.70 - [facility] 6.10 [facility] x10(3)/[facility] LABORATORY Lymphocytes % 10.3 % [facility] LABORATORY Lymphocytes Abs 1.1 0.9 - 3.2 [facility] x10(3)/[facility] LABORATORY Monocytes % 7.0 % [facility] LABORATORY Monocyte Abs 0.7 0.3 - 0.9 [facility] x10(3)/[facility] LABORATORY Eosinophils % 3.6 % [facility] LABORATORY Eosinophils Abs 0.4 0.0 - 0.4 [facility] x10(3)/[facility] LABORATORY Basophils % 0.5 % [facility] LABORATORY Basophils Abs 0.0 0.0 - 0.1 [facility] x10(3)/[facility] LABORATORY Immature Gran % [...] Gran Abs 0.07 (H) 0.00 - 0.04 x10(3)/[facility] LABORATORY Specimen Anatomical Collection Method Collection Time Receive d Time (Source) Location / / Volume Laterality Blood specimen 08/08/2017 4:51 AM 018 5:14 (specimen) EST AM EST Resulting Agency Comment Spec In Lab Yonathan Smith MD HEMATOLOGY ORDERABLES Performing Organization Address City/State/[place] [address] (ABNORMAL) Hemogram (08/08/2017 4:51 AM EST) Analysis Performed At Patho logist Time Signature WBC 10.5 (H) 4.0 - 9.[address] [facility] x[facility](3[facility] LABORATORY RBC 3.27 (L) 4.58 - [facility] 5.54 [facility] x10(6)/[facility] LABORATORY Hemoglobin 9.3 (L) 13.7 - [facility] 16.5 gm/dL [facility] LABORATORY Hematocrit 30.3 (L) 40.5 - [facility] 48.5 % [facility] LABORATORY MCV 92.7 82.9 - [facility] 93.1 [facility] LABORATORY MCH 28.4 27.5 - [facility] 32.1 pg [facility] LABORATORY MCHC 30.7 (L) 32.0 - [facility] 35.7 gm/dL [facility] LABORATORY Platelets 252 145 - 357 [facility] x10(3)/[facility] LABORATORY RDWSD 54.6 (H) 36.0 - [facility] 45.0 [facility] LABORATORY RDWCV 16.2 (H) 11.4 - [facility] 13.8 % [facility] LABORATORY MPV 9.1 7.6 - 12.9 [facility] LABORATORY nRBC % Auto 0.0 % [facility] LABORATORY nRBC Abs Auto 0.000 0.000 - [facility] 0.000 [facility] x10(3)/[facility] LABORATORY Specimen Anatomical Collection Method Collection Time Receive d Time (Source) Location / / Volume Laterality Blood specimen 08/08/2017 4:51 AM 018 5:14 (specimen) EST AM EST Resulting Agency Comment Spec In Lab Yonathan Smith MD HEMATOLOGY ORDERABLES Performing Organization Address City/State/[place] [address] (ABNORMAL) Prothrombin Time (08/08/2017 [...] Organization Address City/State/[place] [address] (ABNORMAL) Basic Metabolic Panel (non-fasting) (08/08/2017 4:51 AM EST) athologist Signature Glucose Lvl 229 (H) 65 - 199 [facility] mg/dL [facility] LABORATORY Comment: Diabetes: >=200 mg/dL plus [...] or in patients with acute kidney failure. [email or web address] Specimen Anatomical Collection Method Collection Time Receive d Time (Source) Location / / Volume Laterality Blood specimen 08/08/2017 4:51 AM 018 5:14 (specimen) EST AM EST Resulting Agency Comment Spec In Lab Yonathan Smith MD CHEMISTRY ORDERABLES Performing Organization Address City/[facility]/ZIP Code Phon e Number [address] POCT Glucose (08/08/2017 4:20 AM EST) athologist Signature POC Glucose 193 65 - 199 [facility] mg/dL [facility] LABORATORY Comment: [...] Address City/State/ZIP Code Phon e Number [address] POCT Glucose (08/07/2017 11:11 PM EST) athologist Signature POC Glucose 124 65 - 199 [facility] LABORATORY Comment: [...] Address City/[facility]/[place] [address] (ABNORMAL) APTT (08/07/2017 10:18 [...] MD HEMATOLOGY ORDERABLES Performing Organization Address City/[facility]/[place] [address] POCT Glucose (08/07/2017 8:10 PM EST) athologist Signature POC Glucose 140 65 - 199 [facility] mg/dL [facility] LABORATORY Comment: [...] Address City/[facility]/[place] [address] POCT Glucose (08/07/2017 5:27 PM EST) athologist Signature POC Glucose 187 65 - 199 [facility]/dL [facility] LABORATORY Comment: [...] Address City/[facility]/[place] [address] POCT Glucose (08/07/2017 3:29 PM EST) athologist Signature POC Glucose 86 65 - 199 [facility] mg/dL [facility] LABORATORY Comment: Supplemental ranges: <140 mg/dL before meals <180 mg/dL all other times of the day Specimen Anatomical Collection Method Collection Time Receive d Time (Source) Location / / Volume Laterality Blood specimen 08/07/2017 3:29 PM 018 3:29 (specimen) EST PM EST Yonathan Smith MD POINT OF CARE TEST ORDERABLE S Performing Organization Address [facility]/ZIP [facility] [place] [address] (ABNORMAL) APTT (08/07/2017 2:50 [...] MD HEMATOLOGY ORDERABLES Performing Organization Address City/[facility]/ZIP [facility] Phon e Number [address] (ABNORMAL) POCT Glucose (08/07/2017 2:23 PM EST) athologist Signature POC Glucose 55 (L) 65 - 199 [facility] mg/dL [facility] LABORATORY Comment: [...] Address City/State/ZIP Code Phon e Number [address] POCT Glucose (08/07/2017 12:08 PM EST) P athologist Signature POC Glucose 77 65 - 199 [facility]/dL [facility] LABORATORY Comment: [...] Address City/State/ZIP Code Phon e Number [address] (ABNORMAL) Differential, Automated (08/07/2017 7:30 AM EST) Patholo gist Method Time Signature Neutrophils % 73.8 % [facility] LABORATORY Neutr Abs (ANC) 7.17 (H) 1.70 - [facility] 6.10 [facility] x10(3)/[facility] LABORATORY Lymphocytes % 12.2 % [facility] LABORATORY Lymphocytes Abs 1.2 0.9 - 3.2 [facility] x10(3)/[facility] LABORATORY Monocytes % 9.0 % [facility] LABORATORY Monocyte Abs 0.9 0.3 - 0.9 [facility] x10(3)/[facility] LABORATORY Eosinophils % 3.9 % [facility] LABORATORY Eosinophils Abs 0.4 0.0 - 0.4 [facility] x10(3)/[facility] LABORATORY Basophils % 0.6 % [facility] LABORATORY Basophils Abs 0.1 0.0 - 0.1 [facility] x10(3)/[facility] LABORATORY Immature Gran % [...] Organization Address City/State/[place] [address] (ABNORMAL) Hemogram (08/07/2017 7:30 AM EST) Analysis Performed At Patho logist Time Signature WBC 9.7 (H) 4.0 - 9.5 [facility] x10(3)/[facility] LABORATORY RBC 3.54 (L) 4.58 - [facility] 5.54 [facility] x10(6)/[facility] LABORATORY Hemoglobin 9.9 (L) 13.7 - [facility] 16.5 gm/dL [facility] LABORATORY Hematocrit 32.3 (L) 40.5 - [facility] 48.5 % [facility] LABORATORY MCV 91.2 82.9 - [facility] 93.1 [facility] LABORATORY MCH 28.0 27.5 - [facility] 32.1 pg [facility] LABORATORY MCHC 30.7 (L) 32.0 - [facility] 35.7 gm/dL [facility] LABORATORY Platelets 312 145 - 357 [facility] x10(3)/[facility] LABORATORY RDWSD 53.2 (H) 36.0 - [facility] 45.0 [facility] LABORATORY RDWCV 16.0 (H) 11.4 - [facility] 13.8 % [facility] LABORATORY MPV 8.9 7.6 - 12.9 [facility] LABORATORY nRBC % Auto 0.0 % [facility] LABORATORY nRBC Abs Auto 0.000 0.000 - [facility] 0.000 [facility] x10(3)/[facility] LABORATORY Specimen Anatomical Collection Method Collection Time Receive d Time (Source) Location / / Volume Laterality Blood specimen 08/07/2017 7:30 AM 018 7:45 (specimen) EST AM EST Resulting Agency Comment Spec In Lab Yonathan Smith MD HEMATOLOGY ORDERABLES Performing Organization Address City/State/[place] [address] (ABNORMAL) Basic Metabolic Panel (non-fasting) (08/07/2017 7:30 AM EST) P athologist Signature Glucose Lvl 80 65 - 199 [facility] mg/dL [facility] LABORATORY Comment: Diabetes: >=200 mg/dL plus [...] or in patients with acute kidney failure. [email or web address] Specimen Anatomical Collection Method Collection Time Receive d Time (Source) Location / / Volume Laterality Blood specimen 08/07/2017 7:30 AM 018 7:45 (specimen) EST AM EST Resulting Agency Comment Spec In Lab Yonathan Smith MD CHEMISTRY ORDERABLES Performing Organization Address City/[facility] Phon e Number [address] POCT Glucose (08/07/2017 7:27 AM EST) athologist Signature POC Glucose 81 65 - 199 [facility] mg/dL [facility] LABORATORY Comment: Supplemental ranges: <140 mg/dL before meals <180 mg/dL all other times of the day Specimen Anatomical Collection Method Collection Time Receive d Time (Source) Location / / Volume Laterality Blood specimen 08/07/2017 7:27 AM 018 7:27 (specimen) EST AM EST Yonathan Smith MD POINT OF CARE TEST ORDERABLE S Performing Organization Address [facility] Phon e Number [address] APTT (08/07/2017 7:04 AM [...] MD HEMATOLOGY ORDERABLES Performing Organization Address City/[facility]/[place] [address] (ABNORMAL) Prothrombin Time (08/07/2017 [...] Organization Address City/State/[place] [address] POCT Glucose (08/07/2017 4:03 AM EST) athologist Signature POC Glucose 93 65 - 199 [facility] mg/dL [facility] LABORATORY Comment: [...] Organization Address City/State/[place] [address] POCT Glucose (08/07/2017 12:04 AM EST) athologist Signature POC Glucose 107 65 - 199 [facility] mg/dL [facility] LABORATORY Comment: [...] Address City/State/ZIP Code Phon e Number [address] POCT Glucose (08/06/2017 7:56 PM EST) P athologist Signature POC Glucose 178 65 - 199 [facility] mg/dL [facility] LABORATORY Comment: [...] Address City/State/ZIP Code Phon e Number [address] [id number] (08/06/2017 2:32 PM EST) Component Value Ref Test Analysis Performed At Patholo gist Range Method Time Signature VB Text Department: Vascular Surgery Lab VASCUBASE Report Patient: [id number] (GREGORY HOANG) CPT: [id number] ICD10: I99.8 Referring Physician: YONATHAN SMITH ?? [...] to order required aPTT - Per Protocol, Routine, Indication: Atrial Fibrillation New Bag 08/09/2017 4:35 PM EST 1,350 [...] Mcgrath RN)1212 (Given - Provider: Chiquis Mcgrath, RN)1730 (Given - Provider: Chiquis Mcgrath RN) [...] Mcgrath RN)2024 (Not Given - Provider: Mira rTuong RN - Reason: Order parameters not met) [...] Marks RN) 09 (Given - Provider: Chiquis Mcgrath, VAMSI)2022 (Hold - Provider: Mira Truong, RN - Reason: See comment - Comment: BP 95/58. Per Dr. Flores. Ok to hold) 0800 (Given - Provider: Dory Truong, VAMSI) 25 mg, Oral, 2 TIMES DAILY, First dose o n Wed08/06/17 at 2100, Until Discontinued, Routine senna (SENOKOT) tablet 8.6 mg 08 (Given - Provider: Chiquis Mcgrath RN)2011 (Given - Provider: Henrique Marks, VAMSI) 08 (Given - Provider: Chiquis Mcgrath RN)2024 [...] mg (COMPLETED) 1713 (Given - Provider: Chiquis Mcgrath, VAMSI) 2.5 [...] 0454 (Given - P rovider: Henrique Marks RN)0833 (Given - Provider: Chiquis Mcgrath RN)1135 (Given [...] PRN, S tarting 08/06/17 at 1659, Until Wed08/16/17 at 1425, flush, [...]
Routine documented in this encounter Care Teams [employer] Relationship Specialty Start Date End Date Lovely Vicente MD PCP - General 04/16/[address] [place] [address] [address] [place] [address] documented as of this encounter
--- OUTSIDE RECORDS SUMMARY | 2022-04-29 08:13 | XMS_ITS | Encounter Summary ---
:1945 Author Organization [facility] [place] [place] [address] Care Team Providers Name Role Phone Lovely Vicente MD Primary Care Provider Reason for Visit Auth/Cert Specialty Diagnoses / Procedures Referred By Contact Refer red To Contact Diagnoses Critical lower limb ischemia CELLULITIS RT FOOT Procedures EMERGENCY Referral ID Status Reason Start Date Expiration Date Visits Requ ested Visits Authorized [id number] 1 1 Encounter Details Date Type Department Care Team Description 08/11/2017 Surgery Main Operating Room Yonathan Smith (M SURG) DRESSING CHANGE Barbara Ocampo MD (FOR OTHER THAN IVAN) [facility] UNDER ANES. 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 [...] Dorsalis Pedis (Ankle) Artery ?132 ? 0.94 ??Mcculloch-Biphasic ? Posterior Tibial (Ankle) Artery ??154 ? 1.10 ??Mcculloch-Biphasic ? Fourth Toe ? 67 ?0.48 ?? [...] the foot. Discharge Conditions/Prognosis: Good Discharge to: [facility] Rehab Discharge Medications: Your Medications New Medications [...] For any problems or questions please call [phone] ZELDA Smith, statue maker Nurse Clinician For issues on weeknights after 5pm and weekends please call [phone] and ask for the Vascular Fellow consumer lending manager. General Instructions None Future Appointments and Orders Future Appointments Provider Department Dept Phone 08/26/2017 4:00 PM Aurelia Rivera PA Vascular Surgery at [place] [phone] 09/07/2017 3:00 PM LAB, THREE L Lab 3L [facility] [phone] 09/07/2017 4:00 PM Luz Prescott MD Endocrinology at [place] [phone] 09/09/2017 8:00 AM Barbra Soares APRN Pain Management at [place] [phone] Please bring a list of your current [...] For any problems or questions please call [phone] ZELDA Smith, statue maker Nurse Clinician For issues on weeknights after 5pm and weekends please call [phone] and ask for the Vascular Fellow consumer lending manager. documented in this encounter Medications at [...] Management Discharge Note Patient Destination: [facility] ([facility]) [address] [place] [id number] Transportation: with (at bedside) Time of Discharge: by 12 noon Level of Care: swing Patient Aware: yes Family Notified: yes Md to call report to: Yissel Quintero HISTOPATHOLOGY TECHNICIAN already called RN to call report to: [phone] Shirin Wolf Office of Care Management Pager [phone] Shirin Wagner RN - 08/16/2017 10:50 AM EST [facility] has offered pt swing bed. Pt and accept bed. will transport via car. HISTOPATHOLOGY TECHNICIAN Yissel Quintero aware; d/c paperwork will be completed by 12 noon. [facility] requests pt arrival by 1400 today; HISTOPATHOLOGY TECHNICIAN, RN, and family aware. HISTOPATHOLOGY TECHNICIAN called [facility] and was told that they prefer pt to arrive with wound vac dressing applied but clamped. HISTOPATHOLOGY TECHNICIAN applied new wound vac dressing. RN has [facility] number to call report. PASSR completed; HISTOPATHOLOGY TECHNICIAN paged to request provider signature in highlighted space. Indigo from [facility] notified via email that home wound vac now cancelled; [facility] has picked up from room and order cancelled. Packet started and provided to community placement worker. Medicare important message explained to patient, patient signed. Copy provided to patient and signature page to OCM for inclusion in pt EMR. Radha Georges - 08/16/2017 10:34 AM EST Office of Care Management/[facility] Patient Name: Gregory Hoang : 1945 Patient has been offered a swing bed at [facility]. The patient will be transported by private transportation. No MD to MD report necessary Please call Nursing Report to [phone], ask for safe deposit box rental clerk. Info to accompany patient: Narcotic Prescriptions Copies of Medication Administration Records and IV sheets for past 10 days. Plan: [facility] will be available to the patient and Scheduling Clerk-RN and/or Addiction Social Worker for further assistance. Patient will be discharged to: [facility] [address] [place] [address] [id number] Radha Powers, [facility]yard[facility] Mira Black, VAMSI - 08/15/2017 10:05 PM EST [address] Flores to ask if he wanted to hold metoprolol dose. BP 95/58. OK to hold this dose Courtney Brito - 08/15/2017 3:26 PM EST Office of Care Management(OCM)/[facility](RS)/ D/C Planning re : Patient is medically ready for d/c today. RS has been in contact with [facility] to see if they could offer a bed. [facility] is still reviewing the case and need their MD to review chart prior to accepting or declining. OCM team needs to check in with [place] tomorrow to check on status. 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 staff: Looks well. Vac in [...] referral to: [facility] PHONE: [phone] FAX: [phone] CM spoke with RS who said that [...] rehab. Await recommendations from PT. Covering pager #[phone]. 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 Marine Animal Trainer Kaitlin Saha, RN Pager #[phone] Payam Rosales - 08/13/2017 2:37 PM EST Delivery Assistant Encounter Note Patient Name: Gregory Hoang : [id number] MR#: [id number] Admit Date: 08/06/2017 1:41 PM Hospital Day 7 days Narrative: Visited to introduce and assess acceptance of Delivery Assistant services. Pt was awake, alert, oriented and in chair and family was there. Assessment:Patient coping positively with stresses of illness/hospitalization at this time. Pt says that he is hoping to get better and his family was there. Pt says that he has family care and supportand taking one day at time. Intervention and Outcome: Provided emotional support and encouraging presence. 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 A letter describing our affiliations was reviewed with them and theywere educated about their right to choose where referrals are placed. Patient requests referral to [facility]. PHONE: [phone] FAX: [phone]. And Home NPWT (Negative Pressure Wound Therapy) aka wound vac device made available to pt. Serial # confirmed. Reviewed [facility] Proof of Delivery/Assignment of Benefits Statement(POD/AOB) Form w patient or authorized agent signing on behalf of patient. Copy of POD/AOB provided to pt and other copy faxed to [employer] @ fax# [phone] Expected date of discharge: 08/12/2017. 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 Address: [address] [place] [address] [place] [address] (home) Mobile: Telephone Information: Referring Provider: No [...] SETUP performed by Manny Mcknight MD at [facility] MAIN OR ??? PRO CABG, ARTERIAL, SINGLE N/A 07/07/2017 @CABG, USING ARTERIAL GRAFT;SINGLE ARTERIAL GRAFT (WRVU 33.75) performed by Yuan Retana MD at [facility] MAIN OR ??? PRO CABG, ARTERY-VEIN, TWO N/A 07/07/2017 @CABG, TWO VENOUS GRAFTS & ARTERIAL GRAFT (WRVU 7.93) performed by Yuan Retana MD at [facility] MAIN OR ??? PRO COLONOSCOPY, REMV LESN, SNARE 01/16/2014 COLONOSCOPY, POLYPECTOMY, REMOVAL LESION BY SNARE performed by Nohemi Jaimes MD at [facility] ENDOSCOPY ??? PRO ENDOSCOPY W/VIDEO-ASST VEIN HARVEST, CABG Right 07/07/2017 ENDOSCOPIC HARVEST VEIN(S) FOR CABG (WRVU 0.31) performed by Yuan Retana MD at [facility] MAIN OR ??? 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 Heparin gtt continues to [...] of : 1945 AGE 72 y.o. Address: [address] [place] [address] [place] [address] (home) Mobile: Telephone Information: Referring Provider: No [...] SETUP performed by Manny Mcknight MD at [facility] MAIN OR ??? PRO CABG, ARTERIAL, SINGLE N/A 07/07/2017 @CABG, USING ARTERIAL GRAFT;SINGLE ARTERIAL GRAFT (WRVU 33.75) performed by Yuan Retana MD at [facility] MAIN OR ??? PRO CABG, ARTERY-VEIN, TWO N/A 07/07/2017 @CABG, TWO VENOUS GRAFTS & ARTERIAL GRAFT (WRVU 7.93) performed by Yuan Retana MD at [facility] OR ??? PRO COLONOSCOPY, REMV LESN, SNARE 01/16/2014 COLONOSCOPY, POLYPECTOMY, REMOVAL LESION BY SNARE performed by Nohemi Jaimes MD at [facility] ENDOSCOPY ??? PRO ENDOSCOPY W/VIDEO-ASST VEIN HARVEST, CABG Right 07/07/2017 ENDOSCOPIC HARVEST VEIN(S) FOR CABG (WRVU 0.31) performed by Yuan Retana MD at [facility] MAIN OR ??? 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 Vascular resident consumer lending manager and will forward result to the team prior to rounds. 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 [...] SETUP performed by Manny Mcknight MD at [facility] MAIN OR ??? PRO CABG, ARTERIAL, SINGLE N/A 07/07/2017 @CABG, USING ARTERIAL GRAFT;SINGLE ARTERIAL GRAFT (WRVU 33.75) performed by Yuan Retana MD at [facility] MAIN OR ??? PRO CABG, ARTERY-VEIN, TWO N/A 07/07/2017 @CABG, TWO VENOUS GRAFTS & ARTERIAL GRAFT (WRVU 7.93) performed by Yuan Retana MD at [facility] MAIN OR ??? PRO COLONOSCOPY, REMV LESN, SNARE 01/16/2014 COLONOSCOPY, POLYPECTOMY, REMOVAL LESION BY SNARE performed by Nohemi Jaimes MD at [facility] ENDOSCOPY ??? PRO ENDOSCOPY W/VIDEO-ASST VEIN HARVEST, CABG Right 07/07/2017 ENDOSCOPIC HARVEST VEIN(S) FOR CABG (WRVU 0.31) performed by Yuan Retana MD at [facility] MAIN OR ??? PRO THYROIDECTOMY 03/28/2013 THYROIDECTOMY, TOTAL OR COMPLETE performed by Manny Mcknight MD at [facility] MAIN OR Functional Status/Social Hx: Quit [...] left blue toes with CTA showing R PHYSICAL SCIENCE TECHNICIAN pseudoaneurysm (now thrombosed) and occluded ATs [...] 2.5x80 5. Completion RLE angiogram 6. L PHYSICAL SCIENCE TECHNICIAN angiogram 7. 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 - L PHYSICAL SCIENCE TECHNICIAN angriogram demonstrated: High femoral bifurcation over the proximal half of the femoral head. L PHYSICAL SCIENCE TECHNICIAN access in the distal L PHYSICAL SCIENCE TECHNICIAN. - Closure device: Mynx Technical Procedure: [...] for a 45cm 5F Destination. V18 and Laie and QuickCross catheters were used to select [...] 5F. A stationed picture of the L PHYSICAL SCIENCE TECHNICIAN was performed as the patient was noted to have a very high bifurcation. Access appeared in the distal R PHYSICAL SCIENCE TECHNICIAN. Closure and sheath removal was performed [...] PM EST 1440 report called to 5 potrero nurse Tessa AGUSTIN documented in this encounter Miscellaneous Notes Plan of Care - Dory Truong RN - 08/16/2017 10:51 AM EST Problem: Patient Care Overview Goal: Plan of Care Review Outcome: Outcome (s) achieved Date Met: 08/16/17 08/14/17 1939 08/16/17 1851 Coping/Psychosocial Plan Of Care Reviewed With -- patient Plan of Care Review Progress improving -- Discussed discharge instructions with pt and pt's spouse. Discharge to [facility]. Goal: Individualization & Mutuality Outcome: Outcome (s) [...] sit/sit to supine -- Bed Mobility Goal, White Level independent -- Bed Mobility Goal, Date [...] days -- Transfer Training Goal, Activity Type zle-ku-rjfok/golno-dg-ymg -- Transfer Train Goal, White Level conditional independence -- Transfer Train Goal, [...] call [place]ello within reach, Hourly rounding by RN/APPLIANCE SERVICE REPRESENTATIVE. Bed alarm / Chair alarm. Patient-specific [...] Operative Note Patient Name: Gregory Hoang : [id number] MR#: [id number] Case Date: 08/09/2017 Surgeon: Surgeon(s) and Role: [...] 2.5x80 5. Completion RLE angiogram 6. L PHYSICAL SCIENCE TECHNICIAN angiogram 7. Mynx closure Precautions/Restrictions: fall, [...] other (see comments) (or swing bed) Pager: [phone] BASSAM ELIAS, PT 08/14/2017 Inpatient Physical Therapy [...] to Achieve by discharge Gait Training Goal, White Level conditional independence;set up required Gait Training [...] these facilities over the weekend except for [facility]. CM spoke with [facility] KANWAL Sandhu RN who said that they do not anticipate any beds over the weekend. Reviewed with patient/ that they need to be aware that patient will need to take the first bed offered at the facilities that they make referrals to. Their choices are: 1- [facility] PHONE: [phone] FAX: [phone] 2- [facility] ([facility]) [address] [place] [address] 3- [facility])([facility]) [address] [place] [address] I have discussed Medicare/Private Insurance [...] RS/CM on Wednesday to follow-up. Covering pager #[phone] for today. Plan of Care - Henrique [...] with additional findings of pseudoaneurysm on R PHYSICAL SCIENCE TECHNICIAN and bilateral anterior tibial artery occlusions. [...] an outpatient once discharged. Have patient call [phone] to set up an appointment. Follow-up: Dermatology will sign-off for now. Please do not hesitate to contact us if you have any questions orconcerns. Impression and Recommendations discussed with primary team on 08/13/2017. Karo Henderson MD Resident in Dermatology Section of Dermatology, Department of Surgery [facility] Pager [phone] Patient seen and evaluated with staff Real Estate Subagent: Halima Cordero MD Section of Dermatology [facility] Level of Resident Supervision: Direct Supervision [...] 2.5x80 5. Completion RLE angiogram 6. L PHYSICAL SCIENCE TECHNICIAN angiogram 7. Mynx closure Active Non-Hospital [...] home with home health ([facility] PT&OT) Pager: [phone] YASIR TELLO OT 08/12/2017 Occupational Therapy Rehabilitation [...] 2.5x80 5. Completion RLE angiogram 6. L PHYSICAL SCIENCE TECHNICIAN angiogram 7. Mynx closure Past Medical [...] with 24/7 assistance and maximal services) Pager: [phone] NICHOLAS MORA, JESSIE 08/12/2017 Physical Therapy Rehabilitation [...] sit/sit to supine -- Bed Mobility Goal, White Level independent -- Bed Mobility Goal, Outcome Achieved -- goal ongoing Goal: Gait Training Goal Stand Alone Therapy Goal Outcome: Ongoing (Interventions Implemented as Appropriate) 08/11/17 1310 08/12/17 1510 Gait Training Goal Gait Training Goal, Date Established 08/11/17 -- Gait Training Goal, Time to Achieve 5 - 7 days -- Gait Training Goal, White Level conditional independence -- Gait Training Goal, [...] days -- Transfer Training Goal, Activity Type ati-hc-yeorz/iswng-sv-xeh -- Transfer Train Goal, White Level conditional independence -- Transfer Training Goal, [...] Operative Note Patient Name: Gregory Hoang : [id number] MR#: [id number] Case Date: 08/11/2017 Surgeon: Surgeon(s) and Role: [...] 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 Completion RLE angiogram 6. L PHYSICAL SCIENCE TECHNICIAN angiogram 7. Mynx closure He is [...] Anticipated Discharge Disposition: inpatient rehabilitation facility Pager: [phone] LAWRENCE GONZALEZ, PT 08/11/2017 Physical Therapy Rehabilitation [...] to sit/sit to supine Bed Mobility Goal, White Level independent Goal: Gait Training Goal Stand Alone Therapy Goal Outcome: Ongoing (Interventions Implemented as Appropriate) 08/11/17 1310 Gait Training Goal Gait Training Goal, Date Established 08/11/17 Gait Training Goal, Time to Achieve 5 - 7 days Gait Training Goal, White Level conditional independence Gait Training Goal, Assist [...] 7 days Transfer Training Goal, Activity Type elc-hz-inuyg/abvwy-us-hti Transfer Train Goal, White Level conditional independence Plan of Care - [...] call cabello within reach, Hourly rounding by RN/APPLIANCE SERVICE REPRESENTATIVE. Bed alarm / Chair alarm. ? [...] Advance Care Planning: on file Kisha Hoang [facility] [phone] Current Coping/Education/Information Needs: pt and spouse state [...] Health/Prescription Coverage: Primary Insurance: MEDICARE Secondary Insurance: [place] Prescription Coverage: See above [facility] Other: N/A Primary Care Provider: Lovely Vicente MD [phone] Patient/Caregiver Goals of Treatment: Patient plans to [...] of care planning. Kaitlin Saha RN Pager: [phone] Plan of Care - Melba Jaramillo RN [...] Overview Goal: Plan of Care Review 08/08/17 0174 Coping/Psychosocial Plan Of Care Reviewed With patient [...] call cabello within reach, Hourly rounding by RN/APPLIANCE SERVICE REPRESENTATIVE. Bed alarm / Chair alarm. Patient-specific [...] at bedside and MD TEAM Carrying pager [phone] contacted (via Radio page) and notified of [...] Zulma Dolan MD [facility] [place], [place] [address] (Wo rk) 05/28/2022 Laboratory Appointment Lab 05/28/2022 Office Visit Cardiology Zulma Dolan [place] [facility] [place] [address] Liz Poole PA [facility] [place] [address] 06/10/2022 Office Visit Dermatology Laura Scherer MD [facility] DR TEJA [address], [place] [address] (Wo rk) documented as of [...] 160 65 - 199 BARBARA RYAN mg/dL [facility] Comment: Supplemental [...] [place] [address] (ABNORMAL) Differential, Automated (08/16/2017 5:08 AM EST) [facility] Method Time Signature Neutrophils % 73.9 % [facility] Neutr Abs (ANC) 5.37 1.70 - [facility] 6.[address] [facility] x10(3)/[facility] LABORATORY Lymphocytes % 10.1 % [facility] Lymphocytes Abs 0.7 (L) 0.9 - 3.2 [facility] x10(3)/[facility] LABORATORY Monocytes % 10.1 % [facility] Monocyte Abs 0.7 0.3 - 0.9 [facility] x10(3)/[facility] LABORATORY Eosinophils % 5.1 % [facility] Eosinophils Abs 0.4 0.0 - 0.4 [facility] x10(3)/[facility] LABORATORY Basophils % 0.4 % [facility] Basophils Abs 0.0 0.0 - 0.1 [facility] x10(3)/[facility] LABORATORY Immature Gran % 0.40 [...] Abs 0.03 0.00 - 0.04 x10(3)/[facility] Specimen Anatomical Collection Method Collection Time Receive d Time (Source) Location / / Volume Laterality Blood specimen 08/16/2017 5:08 AM 018 5:20 (specimen) EST AM EST Resulting Agency Comment Spec In Lab Yonathan Smith MD HEMATOLOGY ORDERABLES Performing Organization Address City/State/ZIP [place] [address] (ABNORMAL) Hemogram (08/16/2017 5:08 AM EST) Analysis Performed At Patho logist Time Signature WBC 7.3 4.0 - 9.5 [place] x10(3)/[facility] LABORATORY RBC 3.36 (L) 4.58 - [place] 5.[address] [facility] x10(6)/[facility] LABORATORY Hemoglobin 9.7 (L) 13.7 - [facility] 16.5 gm/dL [facility] Hematocrit 30.3 (L) 40.5 - [place] 48.5 % [facility] MCV 90.2 82.9 - [facility] RYAN 93.1 [facility] LABORATORY MCH 28.9 27.5 - [place] 32.1 pg [facility] MCHC 32.0 32.0 - [place] 35.7 gm/dL [facility] Platelets 282 145 - 357 [facility] x[facility](3[facility] LABORATORY RDWSD 53.9 (H) 36.0 - [place] 45.0 [facility] LABORATORY RDWCV 16.5 (H) 11.4 - [place] 13.8 % [facility] MPV 9.0 7.6 - 12.9 [place] [facility] LABORATORY nRBC % Auto 0.0 % [facility] nRBC Abs Auto 0.000 0.000 - [place] 0.[address] [facility] x10(3)/[facility] LABORATORY Specimen Anatomical Collection Method Collection Time Receive d Time (Source) Location / / Volume Laterality Blood specimen 08/16/2017 5:08 AM 018 5:20 (specimen) EST AM EST Resulting Agency Comment Spec In Lab Yonathan Smith MD HEMATOLOGY ORDERABLES Performing Organization Address City/State/ZIP Code Phon e Number [place] [id number]OS[address] (ABNORMAL) Basic Metabolic Panel (non-fasting) (08/16/2017 5:08 AM EST) P athologist Signature Glucose Lvl 141 65 - 199 [facility] mg/dL [facility] Comment: Diabetes: [...] HOSPITAL LABORATORY Estimated GFR 57 (L) >=60 [facility] Comment: The reported eGFR should be multiplied b y 1.2 for patients. The MDRD is not an appropriate measure o f renal function for patients with body mass extremes or in patients with acute kidney failure. http://[employer]/DHnkdep http://[employer]/DHMCnkf Specimen Anatomical Collection Method Collection Time Receive d Time (Source) Location / / Volume Laterality Blood specimen 08/16/2017 5:08 AM 018 5:20 (specimen) EST AM EST Resulting Agency Comment Spec In Lab Yonathan Smith MD CHEMISTRY ORDERABLES Performing Organization Address City/State/ZIP Code [place] [address] (ABNORMAL) Prothrombin Time (08/16/2017 [...] City/[facility]/ZIP Code Phon e Number [address] POCT Glucose (08/16/2017 4:09 AM EST) athologist Signature POC Glucose 147 65 - 199 [facility]dL [facility] LABORATORY Comment: Supplemental [...] City/[facility]/ZIP Code Phon e Number [address] POCT Glucose (08/15/2017 11:56 PM EST) athologist Signature POC Glucose 176 65 - 199 [facility] mg/dL [facility] LABORATORY Comment: Supplemental [...] City/[facility]/ZIP Code Phon e Number [address] POCT Glucose (08/15/2017 8:05 PM EST) athologist Signature POC Glucose 136 65 - 199 [place] [facility] mg/dL [facility] LABORATORY Comment: Supplemental ranges: <140 mg/dL before meals <180 mg/dL all other times of the day Specimen Anatomical Collection Method Collection Time Receive d Time (Source) Location / / Volume Laterality Blood specimen 08/15/2017 8:05 PM 018 8:05 (specimen) EST PM EST Yonathan Smith MD POINT OF CARE TEST ORDERABLE S Performing Organization Address City/State/[place] [address] (ABNORMAL) POCT Glucose (08/15/2017 4:50 PM EST) athologist Signature POC Glucose 232 (H) 65 - 199 [facility] mg/dL [facility] LABORATORY Comment: Supplemental ranges: <140 mg/dL before meals <180 mg/dL all other times of the day Specimen Anatomical Collection Method Collection Time Receive d Time (Source) Location / / Volume Laterality Blood specimen 08/15/2017 4:50 PM 018 4:50 (specimen) EST PM EST Yonathan Smith MD POINT OF CARE TEST ORDERABLE S Performing Organization Address City/State/[place] [address] POCT Glucose (08/15/2017 12:04 PM EST) athologist Signature POC Glucose 135 65 - 199 [place] mg/dL [facility] LABORATORY Comment: Supplemental ranges: <140 mg/dL before meals <180 mg/dL all other times of the day Specimen Anatomical Collection Method Collection Time Receive d Time (Source) Location / / Volume Laterality Blood specimen 08/15/2017 12:04 8 (specimen) PM EST 12:04 PM EST Yonathan Smith MD POINT OF CARE TEST ORDERABLE S Performing Organization Address City/State/[place] [address] POCT Glucose (08/15/2017 7:36 AM EST) P athologist Signature POC Glucose 124 65 - 199 [facility] mg/dL [facility] LABORATORY Comment: Supplemental [...] [place] [address] (ABNORMAL) Differential, Automated (08/15/2017 6:22 AM EST) Patholo gist Method Time Signature Neutrophils % 76.1 % [facility] LABORATORY Neutr Abs (ANC) 6.62 (H) 1.70 - [facility] 6.[address] [facility] x10(3)/[facility] L LABORATORY Lymphocytes % 9.3 % [facility] LABORATORY Lymphocytes Abs 0.8 (L) 0.9 - 3.2 [facility] x10(3)/[facility] LABORATORY Monocytes % 9.4 % [facility] LABORATORY Monocyte Abs 0.8 0.3 - 0.9 [facility] x10(3)/[facility] LABORATORY Eosinophils % 4.0 % [facility] LABORATORY Eosinophils Abs 0.4 0.0 - 0.4 [facility] x10(3)/[facility] LABORATORY Basophils % 0.6 % [facility] LABORATORY Basophils Abs 0.0 0.0 - 0.1 [facility] x10(3)/[facility] LABORATORY Immature Gran % 0.60 % [facility] [...] [place] [address] (ABNORMAL) Hemogram (08/15/2017 6:22 AM EST) Analysis Performed At Patho logist Time Signature WBC 8.7 4.0 - 9.5 [facility] x10(3)/[facility] LABORATORY RBC 3.21 (L) 4.58 - [facility] 5.[address] [facility] x10(6)/[facility] LABORATORY Hemoglobin 9.1 (L) 13.7 - [facility] 16.5 gm/dL [facility] LABORATORY Hematocrit 29.0 (L) 40.5 - [facility] 48.5 % [facility] LABORATORY MCV 90.3 82.9 - [facility] 93.1 [facility] LABORATORY MCH 28.3 27.5 - [facility] RYAN 32.1 pg [facility] LABORATORY MCHC 31.4 (L) 32.0 - [facility] 35.7 gm/dL [facility] LABORATORY Platelets 254 145 - 357 [facility] x10(3)/[facility] LABORATORY RDWSD 53.9 (H) 36.0 - [facility] RYAN 45.0 [facility] LABORATORY RDWCV 16.3 (H) 11.4 - [facility] RYAN 13.8 % [facility] LABORATORY MPV 8.8 7.6 - 12.9 [facility] LABORATORY nRBC % Auto 0.0 % [facility] LABORATORY nRBC Abs Auto 0.000 0.000 - [place] [facility] 0.[address] [facility] x10(3)/[facility] LABORATORY Specimen Anatomical Collection Method Collection Time Receive d Time (Source) Location / / Volume Laterality Blood specimen 08/15/2017 6:22 AM 018 6:33 (specimen) EST AM EST Resulting Agency Comment Spec In Lab Yonathan Smith MD HEMATOLOGY ORDERABLES Performing Organization Address City/State/ZIP [place] [address] (ABNORMAL) Basic Metabolic Panel (non-fasting) (08/15/2017 6:22 AM EST) P athologist Signature Glucose Lvl 118 65 - 199 [facility] mg/dL [facility] LABORATORY Comment: Diabetes: [...] or in patients with acute kidney failure. [email or web address]/DHnkdep [email or web address]/DHMCnkf Specimen Anatomical Collection Method Collection Time Receive d Time (Source) Location / / Volume Laterality Blood specimen 08/15/2017 6:22 AM 018 6:33 (specimen) EST AM EST Resulting Agency Comment Spec In Lab Yonathan Smith MD CHEMISTRY ORDERABLES Performing Organization Address City/State/[place] [address] (ABNORMAL) Prothrombin Time (08/15/2017 [...] City/[facility]/[place] [address] POCT Glucose (08/15/2017 4:33 AM EST) athologist Signature POC Glucose 164 65 - 199 [facility] mg/dL [facility] LAB[facility]ORY Comment: Supplemental ranges: <140 mg/dL before meals <180 mg/dL all other times of the day Specimen Anatomical Collection Method Collection Time Receive d Time (Source) Location / / Volume Laterality Blood specimen 08/15/2017 4:33 AM 018 4:33 (specimen) EST AM EST Yonathan Smith MD POINT OF CARE TEST ORDERABLE S Performing Organization Address City/State/[place] [address] POCT Glucose (08/15/2017 12:12 AM EST) athologist Signature POC Glucose 89 65 - 199 [facility] mg/dL [facility] LABORATORY Comment: Supplemental ranges: <140 mg/dL before meals <180 mg/dL all other times of the day Specimen Anatomical Collection Method Collection Time Receive d Time (Source) Location / / Volume Laterality Blood specimen 08/15/2017 12:12 8 (specimen) AM EST 12:12 AM EST Yonathan Smith MD POINT OF CARE TEST ORDERABLE S Performing Organization Address City/State/[place] [address] (ABNORMAL) POCT Glucose (08/14/2017 8:07 PM EST) athologist Signature POC Glucose 204 (H) 65 - 199 [facility] mg/dL [facility] LABORATORY Comment: Supplemental ranges: <140 mg/dL before meals <180 mg/dL all other times of the day Specimen Anatomical Collection Method Collection Time Receive d Time (Source) Location / / Volume Laterality Blood specimen 08/14/2017 8:07 PM 018 8:07 (specimen) EST PM EST Yonathan Smith MD POINT OF CARE TEST ORDERABLE S Performing Organization Address City/State/[place] [address] POCT Glucose (08/14/2017 5:11 PM EST) athologist Signature POC Glucose 174 65 - 199 [place] [facility] mg/dL [facility] LABORATORY Comment: Supplemental ranges: <140 mg/dL before meals <180 mg/dL all other times of the day Specimen Anatomical Collection Method Collection Time Receive d Time (Source) Location / / Volume Laterality Blood specimen 08/14/2017 5:11 PM 018 5:11 (specimen) EST PM EST Yonathan Smith MD POINT OF CARE TEST ORDERABLE S Performing Organization Address City/State/[place] [address] POCT Glucose (08/14/2017 12:10 PM EST) athologist Signature POC Glucose 141 65 - 199 [facility] mg/dL [facility] LABORATORY Comment: Supplemental ranges: <140 mg/dL before meals <180 mg/dL all other times of the day Specimen Anatomical Collection Method Collection Time Receive d Time (Source) Location / / Volume Laterality Blood specimen 08/14/2017 12:10 8 (specimen) PM EST 12:10 PM EST Yonathan Smith MD POINT OF CARE TEST ORDERABLE S Performing Organization Address City/State/[place] [address] POCT Glucose (08/14/2017 8:07 AM EST) P athologist Signature POC Glucose 158 65 - 199 [facility] mg/dL [facility] LAB[facility] Comment: Supplemental ranges: <140 mg/dL before meals <180 mg/dL all other times of the day Specimen Anatomical Collection Method Collection Time Receive d Time (Source) Location / / Volume Laterality Blood specimen 08/14/2017 8:07 AM 018 8:07 (specimen) EST AM EST Yonathan Smith MD POINT OF CARE TEST ORDERABLE S Performing Organization Address City/State/[place] [address] (ABNORMAL) Differential, Automated (08/14/2017 4:52 AM EST) Patholo gist Method Time Signature Neutrophils % 78.6 % [facility] LABORATORY Neutr Abs (ANC) 7.70 (H) 1.70 - [facility] 6.[address] [facility] x10(3)/[facility] L LABORATORY Lymphocytes % 7.8 % [facility] LABORATORY Lymphocytes Abs 0.8 (L) 0.9 - 3.2 [facility] x10(3)/[facility] LABORATORY Monocytes % 8.8 % [facility] LABORATORY Monocyte Abs 0.9 0.3 - 0.9 [facility] x10(3)/[facility] LABORATORY Eosinophils % 4.0 % [facility] LABORATORY Eosinophils Abs 0.4 0.0 - 0.4 [facility] x10(3)/[facility] LABORATORY Basophils % 0.5 % [facility] LABORATORY Basophils Abs 0.0 0.0 - 0.1 [facility] x10(3)/[facility] LABORATORY Immature Gran % 0.30 % [facility] [...] [facility] LABORATORY Specimen Anatomical Collection Method Collection Time Receive d Time (Source) Location / / Volume Laterality Blood specimen 08/14/2017 4:52 AM 018 5:08 (specimen) EST AM EST Resulting Agency Comment Spec In Lab Yonathan Smith MD HEMATOLOGY ORDERABLES Performing Organization Address City/State/ZIP [place] [address] (ABNORMAL) Hemogram (08/14/2017 4:52 AM EST) Analysis Performed At Patho logist Time Signature WBC 9.8 (H) 4.0 - 9.5 [facility] x10(3)/[facility] LABORATORY RBC 3.32 (L) 4.58 - [facility] 5.[address] [facility] x10(6)/[facility] LABORATORY Hemoglobin 9.5 (L) 13.7 - [facility] 16.5 gm/dL [facility] LABORATORY Hematocrit 30.3 (L) 40.5 - [facility] 48.5 % [facility] LABORATORY MCV 91.3 82.9 - [facility] 93.1 [facility] LABORATORY MCH 28.6 27.5 - [facility] RYAN 32.1 pg [facility] LABORATORY MCHC 31.4 (L) 32.0 - [facility] 35.7 gm/dL [facility] LABORATORY Platelets 263 145 - 357 [facility] x10(3)/[facility] LABORATORY RDWSD 54.8 (H) 36.0 - [place] [facility] 45.0 [facility] LABORATORY RDWCV 16.5 (H) 11.4 - [facility] 13.8 % [facility] LABORATORY MPV 9.1 7.6 - 12.9 [facility] LABORATORY nRBC % Auto 0.0 % [facility] LABORATORY nRBC Abs Auto 0.000 0.000 - [facility] 0.[address] [facility] x10(3)/[facility] LABORATORY Specimen Anatomical Collection Method Collection Time Receive d Time (Source) Location / / Volume Laterality Blood specimen 08/14/2017 4:52 AM 018 5:08 (specimen) EST AM EST Resulting Agency Comment Spec In Lab Yonathan Smith MD HEMATOLOGY ORDERABLES Performing Organization Address City/State/ZIP [place] [address] (ABNORMAL) Prothrombin Time (08/14/2017 [...] [place] [address] (ABNORMAL) Basic Metabolic Panel (non-fasting) (08/14/2017 4:52 AM EST) P athologist Signature Glucose Lvl 135 65 - 199 [facility] mg/dL [facility] LABORATORY Comment: Diabetes: [...] HOSPITAL LABORATORY Estimated GFR 52 (L) >=60 [facility] LABORATORY Comment: The reported eGFR should be multiplied b y 1.2 for patients. The MDRD is not an appropriate measure o f renal function for patients with body mass extremes or in patients with acute kidney failure. http://[employer]/DHnkdep http://[employer]/DHnkf Specimen Anatomical Collection Method Collection Time Receive d Time (Source) Location / / Volume Laterality Blood specimen 08/14/2017 4:52 AM 018 5:08 (specimen) EST AM EST Resulting Agency Comment Spec In Lab Yonathan Smith MD CHEMISTRY ORDERABLES Performing Organization Address City/State/ZIP [place] [address] POCT Glucose (08/14/2017 3:56 AM EST) P athologist Signature POC Glucose 135 65 - 199 [facility] mg/dL [facility] LABORATORY Comment: Supplemental [...] Address City/State/ZIP Code Phon e Number [address] POCT Glucose (08/13/2017 11:13 PM EST) athologist Signature POC Glucose 118 65 - 199 [facility] mg/dL [facility] LABORATORY Comment: Supplemental [...] City/[facility]/[place] [address] (ABNORMAL) POCT Glucose (08/13/2017 8:08 PM EST) athologist Signature POC Glucose 204 (H) 65 - 199 [facility] mg/dL [facility] LABORATORY Comment: Supplemental ranges: <140 mg/dL before meals <180 mg/dL all other times of the day Specimen Anatomical Collection Method Collection Time Receive d Time (Source) Location / / Volume Laterality Blood specimen 08/13/2017 8:08 PM 018 8:08 (specimen) EST PM EST Yonathan Smith MD POINT OF CARE TEST ORDERABLE S Performing Organization Address City/State/[place] [address] POCT Glucose (08/13/2017 4:02 PM EST) athologist Signature POC Glucose 145 65 - 199 [place] mg/dL [facility] LABORATORY Comment: Supplemental ranges: <140 mg/dL before meals <180 mg/dL all other times of the day Specimen Anatomical Collection Method Collection Time Receive d Time (Source) Location / / Volume Laterality Blood specimen 08/13/2017 4:02 PM 018 4:02 (specimen) EST PM EST Yonathan Smith MD POINT OF CARE TEST ORDERABLE S Performing Organization Address City/State/[place] [address] POCT Glucose (08/13/2017 11:31 AM EST) athologist Signature POC Glucose 179 65 - 199 [facility] mg/dL [facility] LABORATORY Comment: Supplemental [...] City/[facility]/[place] [address] (ABNORMAL) POCT Glucose (08/13/2017 10:16 AM EST) athologist Signature POC Glucose 211 (H) 65 - 199 [facility] mg/dL [facility] LABORATORY Comment: Supplemental [...] City/[facility]/[place] [address] JULIAN, legs, multiple levels (08/13/2017 7:42 AM EST) Component Value Ref Test Analysis Performed At Patholo gist Range Method Time Signature VB Text Department: Vascular Surgery Lab VASCUBASE Report Patient: [id number] (GREGORY HOANG) CPT: 95937 ICD10: I99.8 Referring Physician: YONATHAN SMITH ?? Indications: s/p R 1,2,3 toe amps with red left foot, need n ew baseline Diabetes mellitus: yes ICD10 Diagnosis Code: I99.8 Findings: Right ?Pressure (mm Hg) ?? JULIAN ??Waveform ?TBI ?? Brachial Artery ?138 ? Dorsalis Pedis (Ankle) Arter y ?132 ? 0.94 ??Mcculloch- Biphasic ? Posterior Tibial (Ankle) Art anila ??154 ? 1.10 ??Mcculloch-Biphasic ? Fourth Toe ? 67 ? 0.48 [...] Glucose 156 65 - 199 [facility] mg/dL [facility] LABORATORY Comment: Supplemental [...] City/State/ZIP Code Phon e Number [place] [id number] Drive (ABNORMAL) Differential, Automated (08/13/2017 5:33 AM EST) [facility] Method Time Signature Neutrophils % 77.8 % [facility] LABORATORY Neutr Abs (ANC) 7.83 (H) 1.70 - [facility] 6.[address] [facility] x10(3)/[facility] L LABORATORY Lymphocytes % 8.4 % [facility] LABORATORY Lymphocytes Abs 0.8 (L) 0.9 - 3.2 [facility] x10(3)/[facility] LABORATORY Monocytes % 8.3 % [facility] LABORATORY Monocyte Abs 0.8 0.3 - 0.9 [facility] x10(3)/[facility] LABORATORY Eosinophils % 4.6 % [facility] LABORATORY Eosinophils Abs 0.5 (H) 0.0 - 0.4 [facility] x10(3)/[facility] LABORATORY Basophils % 0.5 % [facility] LABORATORY Basophils Abs 0.0 0.0 - 0.1 [facility] x10(3)/[facility] LABORATORY Immature Gran % 0.40 % [facility] [...] [place] [address] (ABNORMAL) Hemogram (08/13/2017 5:33 AM EST) Analysis Performed At Patho logist Time Signature WBC 10.1 (H) 4.0 - 9.5 [facility] x10(3)/[facility] LABORATORY RBC 3.21 (L) 4.58 - [facility] 5.[address] [facility] x10(6)/[facility] LABORATORY Hemoglobin 9.2 (L) 13.7 - [facility] 16.5 gm/dL [facility] LABORATORY Hematocrit 29.6 (L) 40.5 - [facility] 48.5 % [facility] LABORATORY MCV 92.2 82.9 - [facility] 93.1 [facility] LABORATORY MCH 28.7 27.5 - [facility] 32.1 pg [facility] LABORATORY MCHC 31.1 (L) 32.0 - [facility] 35.7 gm/dL [facility] LABORATORY Platelets 263 145 - 357 [facility] x10(3)/[facility] LABORATORY RDWSD 54.8 (H) 36.0 - [facility] 45.0 [facility] LABORATORY RDWCV 16.4 (H) 11.4 - [facility] 13.8 % [facility] LABORATORY MPV 9.2 7.6 - 12.9 [facility] LABORATORY nRBC % Auto 0.0 % [facility] LABORATORY nRBC Abs Auto 0.000 0.000 - [facility] 0.[address] [facility] x10(3)/[facility] LABORATORY Specimen Anatomical Collection Method Collection Time Receive d Time (Source) Location / / Volume Laterality Blood specimen 08/13/2017 5:33 AM 018 6:04 (specimen) EST AM EST Resulting Agency Comment Spec In Lab Yonathan Smith MD HEMATOLOGY ORDERABLES Performing Organization Address City/State/ZIP [place] [address] (ABNORMAL) Prothrombin Time (08/13/2017 [...] [place] [address] (ABNORMAL) Basic Metabolic Panel (non-fasting) (08/13/2017 5:33 AM EST) athologist Signature Glucose Lvl 126 65 - 199 [facility] mg/dL [facility] LABORATORY Comment: Diabetes: [...] Estimated GFR >60 >=[address] [facility] [facility] LABORATORY Comment: The reported eGFR should be multiplied b y 1.2 for patients. The MDRD is not an appropriate measure o f renal function for patients with body mass extremes or in patients with acute kidney failure. http://[employer]/DHnkdep http://[employer]/DHMCnkf Specimen Anatomical Collection Method Collection Time Receive d Time (Source) Location / / Volume Laterality Blood specimen 08/13/2017 5:33 AM 018 6:04 (specimen) EST AM EST Resulting Agency Comment Spec In Lab Yonathan Smith MD CHEMISTRY ORDERABLES Performing Organization Address City/[facility]/ZIP Code Phon e Number [address] POCT Glucose (08/13/2017 4:29 AM EST) athologist Signature POC Glucose 111 65 - 199 [facility] mg/dL [facility] LABORATORY Comment: Supplemental [...] City/[facility]/ZIP Code Phon e Number [address] POCT Glucose (08/12/2017 11:28 PM EST) athologist Signature POC Glucose 164 65 - 199 [facility] mg/dL [facility] LABORATORY Comment: Supplemental [...] City/[facility]/[place] [address] (ABNORMAL) POCT Glucose (08/12/2017 7:40 PM EST) athologist Signature POC Glucose 209 (H) 65 - 199 [facility] mg/dL [facility] LABORATORY Comment: Supplemental [...] Address City/State/ZIP Code Phon e Number [address] POCT Glucose (08/12/2017 4:24 PM EST) athologist Signature POC Glucose 161 65 - 199 [facility] RYAN mg/dL [facility] LABORATORY Comment: Supplemental ranges: <140 mg/dL before meals <180 mg/dL all other times of the day Specimen Anatomical Collection Method Collection Time Receive d Time (Source) Location / / Volume Laterality Blood specimen 08/12/2017 4:24 PM 018 4:24 (specimen) EST PM EST Yonathan Smith MD POINT OF CARE TEST ORDERABLE S Performing Organization Address City/State/[place] [address] POCT Glucose (08/12/2017 12:00 PM EST) athologist Signature POC Glucose 167 65 - 199 [facility] mg/dL [facility] LABORATORY Comment: Supplemental ranges: <140 mg/dL before meals <180 mg/dL all other times of the day Specimen Anatomical Collection Method Collection Time Receive d Time (Source) Location / / Volume Laterality Blood specimen 08/12/2017 12:00 8 (specimen) PM EST 12:00 PM EST Yonathan Smith MD POINT OF CARE TEST ORDERABLE S Performing Organization Address City/State/[place] [address] POCT Glucose (08/12/2017 7:25 AM EST) P athologist Signature POC Glucose 152 65 - 199 [facility] mg/dL [facility] LABORATORY Comment: Supplemental [...] City/State/ZIP Code Phon e Number [place] [id number] Drive (ABNORMAL) Differential, Automated (08/12/2017 6:29 AM EST) Patholo gist Method Time Signature Neutrophils % 78.7 % [facility] LABORATORY Neutr Abs (ANC) 7.94 (H) 1.70 - [facility] 6.[address] [facility] x10(3)/[facility] LABORATORY Lymphocytes % 8.8 % [facility] LABORATORY Lymphocytes Abs 0.9 0.9 - 3.2 [facility] [facility] x10(3)/[facility] LABORATORY Monocytes % 7.8 % [facility] LABORATORY Monocyte Abs 0.8 0.3 - 0.9 [facility] x10(3)/[facility] LABORATORY Eosinophils % 3.9 % [facility] LABORATORY Eosinophils Abs 0.4 0.0 - 0.4 [facility] x10(3)/[facility] LABORATORY Basophils % 0.3 % [facility] LABORATORY Basophils Abs 0.0 0.0 - 0.1 [facility] x10(3)/[facility] LABORATORY Immature Gran % 0.50 % [facility] [...] [place] [address] (ABNORMAL) Hemogram (08/12/2017 6:29 AM EST) Analysis Performed At Patho logist Time Signature WBC 10.1 (H) 4.0 - 9.5 [facility] x10(3)/[facility] LABORATORY RBC 3.02 (L) 4.58 - [facility] 5.[address] [facility] x10(6)/[facility] LABORATORY Hemoglobin 8.7 (L) 13.7 - [facility] 16.5 gm/dL [facility] LABORATORY Hematocrit 28.1 (L) 40.5 - [facility] 48.5 % [facility] LABORATORY MCV 93.0 82.9 - [facility] 93.1 [facility] LABORATORY MCH 28.8 27.5 - [facility] 32.1 pg [facility] LABORATORY MCHC 31.0 (L) 32.0 - [facility] 35.7 gm/dL [facility] LABORATORY Platelets 223 145 - 357 [facility] x10(3)/[facility] LABORATORY RDWSD 56.1 (H) 36.0 - [facility] RYAN 45.0 [facility] LABORATORY RDWCV 16.4 (H) 11.4 - [facility] RYAN 13.8 % [facility] LABORATORY MPV 9.0 7.6 - 12.9 [facility] LABORATORY nRBC % Auto 0.0 % [facility] LABORATORY nRBC Abs Auto 0.000 0.000 - [place] RYAN 0.[address] [facility] x10(3)/[facility] LABORATORY Specimen Anatomical Collection Method Collection Time Receive d Time (Source) Location / / Volume Laterality Blood specimen 08/12/2017 6:29 AM 018 6:38 (specimen) EST AM EST Resulting Agency Comment Spec In Lab Yonathan Smith MD HEMATOLOGY ORDERABLES Performing Organization Address City/[facility]/[place] [address] (ABNORMAL) Prothrombin Time (08/12/2017 [...] Organization Address City/State/[place] [address] (ABNORMAL) Basic Metabolic Panel (non-fasting) (08/12/2017 6:29 AM EST) athologist Signature Glucose Lvl 151 65 - 199 [facility] mg/dL [facility] LABORATORY Comment: Diabetes: [...] or in patients with acute kidney failure. [email or web address] [email or web address] Specimen Anatomical Collection Method Collection Time Receive d Time (Source) Location / / Volume Laterality Blood specimen 08/12/2017 6:29 AM 018 6:38 (specimen) EST AM EST Resulting Agency Comment Spec In Lab Yonathan Smith MD CHEMISTRY ORDERABLES Performing Organization Address City/[facility]/[place] [address] POCT Glucose (08/12/2017 4:08 AM EST) athologist Signature POC Glucose 181 65 - 199 [facility] mg/dL [facility] LABORATORY Comment: Supplemental [...] City/[facility]/[place] [address] (ABNORMAL) POCT Glucose (08/12/2017 12:17 AM EST) athologist Signature POC Glucose 221 (H) 65 - 199 [facility] mg/dL [facility] LABORATORY Comment: Supplemental [...] City/[facility]/[place] [address] (ABNORMAL) POCT Glucose (08/11/2017 8:52 PM EST) athologist Signature POC Glucose 221 (H) 65 - 199 [place] mg/dL [facility] LABORATORY Comment: Supplemental [...] City/[facility]/[place] [address] POCT Glucose (08/11/2017 5:59 PM EST) athologist Signature POC Glucose 169 65 - 199 [place] mg/dL [facility] LABORATORY Comment: Supplemental ranges: <140 mg/dL before meals <180 mg/dL all other times of the day Specimen Anatomical Collection Method Collection Time Receive d Time (Source) Location / / Volume Laterality Blood specimen 08/11/2017 5:59 PM 018 5:59 (specimen) EST PM EST Yonathan Smith MD POINT OF CARE TEST ORDERABLE S Performing Organization Address City/State/[place] [address] (ABNORMAL) POCT Glucose (08/11/2017 4:08 PM EST) athologist Signature POC Glucose 240 (H) 65 - 199 [place] RY[place] mg/dL [facility] LABORATORY Comment: Supplemental [...] City/[facility]/ZIP Code Phon e Number [address] POCT Glucose (08/11/2017 12:04 PM EST) athologist Signature POC Glucose 182 65 - 199 [facility] mg/dL [facility] LABORATORY Comment: Supplemental [...] City/[facility]/ZIP Code Phon e Number [address] POCT Glucose (08/11/2017 7:31 AM EST) athologist Signature POC Glucose 156 65 - 199 [facility] mg/dL [facility] LABORATORY Comment: Supplemental [...] City/[facility]/ZIP Code Phon e Number [address] (ABNORMAL) Differential, Automated (08/11/2017 6:16 AM EST) [facility] Method Time Signature Neutrophils % 83.7 % [facility] LABORATORY Neutr Abs (ANC) 10.76 (H) 1.70 - [facility] 6.[address] [facility] x10(3)/[facility] LABORATORY Lymphocytes % 6.0 % [facility] LABORATORY Lymphocytes Abs 0.8 (L) 0.9 - 3.2 [facility] x10(3)/[facility] LABORATORY Monocytes % 7.5 % [facility] LABORATORY Monocyte Abs 1.0 (H) 0.3 - 0.9 [facility] x10(3)/[facility] LABORATORY Eosinophils % 2.0 % [facility] LABORATORY Eosinophils Abs 0.3 0.0 - 0.4 [facility] x10(3)/[facility] LABORATORY Basophils % 0.3 % [facility] LABORATORY Basophils Abs 0.0 0.0 - 0.1 [facility] x10(3)/[facility] LABORATORY Immature Gran % 0.50 % [facility] [...] Abs 0.06 (H) 0.00 - 0.04 x10(3)/[facility] LABORATORY Specimen Anatomical Collection Method Collection Time Receive d Time (Source) Location / / Volume Laterality Blood specimen 08/11/2017 6:16 AM 018 6:24 (specimen) EST AM EST Resulting Agency Comment Spec In Lab Yonathan Smith MD HEMATOLOGY ORDERABLES Performing Organization Address City/State/ZIP [place] [address] (ABNORMAL) Hemogram (08/11/2017 6:16 AM EST) Analysis Performed At Patho logist Time Signature WBC 12.9 (H) 4.0 - 9.5 [facility] x10(3)/[facility] LABORATORY RBC 3.28 (L) 4.58 - [facility] 5.[address] [facility] x10(6)/[facility] LABORATORY Hemoglobin 9.5 (L) 13.7 - [place] RYAN 16.5 gm/dL [facility] LABORATORY Hematocrit 29.8 (L) 40.5 - [place] DAV[place] 48.5 % [facility] LABORATORY MCV 90.9 82.9 - [facility] RYAN 93.1 [facility] LABORATORY MCH 29.0 27.5 - [place] OLIV[place]CK 32.1 pg [facility] LABORATORY MCHC 31.9 (L) 32.0 - [place] DAV[place] 35.7 gm/dL [facility] LABORATORY Platelets 236 145 - 357 [facility] x10(3)/[facility] LABORATORY RDWSD 53.5 (H) 36.0 - [place] DAV[place] 45.0 [facility] LABORATORY RDWCV 16.3 (H) 11.4 - [facility] RYAN 13.8 % [facility] LABORATORY MPV 8.8 7.6 - 12.9 [facility] LABORATORY nRBC % Auto 0.0 % [facility] LABORATORY nRBC Abs Auto 0.000 0.000 - [facility] RYAN 0.[address] [facility] x10(3)/[facility] LABORATORY Specimen Anatomical Collection Method Collection Time Receive d Time (Source) Location / / Volume Laterality Blood specimen 08/11/2017 6:16 AM 018 6:24 (specimen) EST AM EST Resulting Agency Comment Spec In Lab Yonathan Smith MD HEMATOLOGY ORDERABLES Performing Organization Address City/State/Z[place] [address] (ABNORMAL) Prothrombin Time (08/11/2017 [...] [place] [address] Basic Metabolic Panel (non-fasting) (08/11/2017 6:16 AM EST) P athologist Signature Glucose Lvl 139 65 - 199 [facility] mg/dL [facility] LABORATORY Comment: Diabetes: [...] or in patients with acute kidney failure. [email or web address] Specimen Anatomical Collection Method Collection Time Receive d Time (Source) Location / / Volume Laterality Blood specimen 08/11/2017 6:16 AM 018 6:24 (specimen) EST AM EST Resulting Agency Comment Spec In Lab Yonathan Smith MD CHEMISTRY ORDERABLES Performing Organization Address City/State/ZIP Code Phon e Number [address] POCT Glucose (08/11/2017 4:07 AM EST) athologist Signature POC Glucose 162 65 - 199 [place] RY[place] mg/dL [facility] LABORATORY Comment: Supplemental [...] City/[facility]/ZIP Code Phon e Number [address] POCT Glucose (08/10/2017 11:59 PM EST) athologist Signature POC Glucose 166 65 - 199 [place] RYAN mg/dL [facility] LABORATORY Comment: Supplemental [...] Address City/State/ZIP Code Phon e Number [address] POCT Glucose (08/10/2017 8:12 PM EST) athologist Signature POC Glucose 156 65 - 199 [place] RYAN mg/dL [facility] LABORATORY Comment: Supplemental [...] City/State/ZIP Code Phon e Number [place] [id number]OS[address]ORY Drive (ABNORMAL) POCT Glucose (08/10/2017 4:42 PM EST) P athologist Signature POC Glucose 211 (H) 65 - 199 [facility] mg/dL [facility] LABORATORY Comment: Supplemental [...] Address City/State/ZIP Code Phon e Number [address] (ABNORMAL) Differential, Automated (08/10/2017 2:30 PM EST) Patholo gist Method Time Signature Neutrophils % 87.6 % [facility] LABORATORY Neutr Abs (ANC) 9.90 (H) 1.70 - [facility] 6.[address] [facility] x10(3)/[facility] LABORATORY Lymphocytes % 4.3 % [facility] LABORATORY Lymphocytes Abs 0.5 (L) 0.9 - 3.2 [facility] x10(3)/[facility] LABORATORY Monocytes % 6.0 % [facility] LABORATORY Monocyte Abs 0.7 0.3 - 0.9 [facility] x10(3)/[facility] LABORATORY Eosinophils % 1.1 % [facility] LABORATORY Eosinophils Abs 0.1 0.0 - 0.4 [facility] x10(3)/[facility] LABORATORY Basophils % 0.4 % [facility] LABORATORY Basophils Abs 0.0 0.0 - 0.1 [facility] x10(3)/[facility] LABORATORY Immature Gran % 0.60 % [facility] [...] [place] [address] (ABNORMAL) Hemogram (08/10/2017 2:30 PM EST) Analysis Performed At Patho logist Time Signature WBC 11.3 (H) 4.0 - 9.5 [facility] x10(3)/[facility] LABORATORY RBC 3.13 (L) 4.58 - [facility] 5.[address] [facility] x10(6)/[facility] LABORATORY Hemoglobin 8.9 (L) 13.7 - [facility] 16[facility] gm/dL [facility] LABORATORY Hematocrit 28.4 (L) 40.5 - [facility] 48.5 % [facility] LABORATORY MCV 90.7 82.9 - [facility] 93.1 [facility] LABORATORY MCH 28.4 27.5 - [facility] 32.1 pg [facility] LABORATORY MCHC 31.3 (L) 32.0 - [facility] 35.7 gm/dL [facility] LABORATORY Platelets 213 145 - 357 [facility] x10(3)/[facility] LABORATORY RDWSD 53.7 (H) 36.0 - [facility] RYAN 45.0 [facility] LABORATORY RDWCV 16.4 (H) 11.4 - [facility] RYAN 13.8 % [facility] LABORATORY MPV 8.9 7.6 - 12.9 [facility] LABORATORY nRBC % Auto 0.0 % [facility] LABORATORY nRBC Abs Auto 0.000 0.000 - [facility] [employer] 0.[address] [facility] x10(3)/[facility] LABORATORY Specimen Anatomical Collection Method Collection Time Receive d Time (Source) Location / / Volume Laterality Blood specimen 08/10/2017 2:30 PM 018 2:48 (specimen) EST PM EST Resulting Agency Comment Spec In Lab Yonathan Smith MD HEMATOLOGY ORDERABLES Performing Organization Address City/[facility]/ZIP Code Phon e Number [address] (ABNORMAL) POCT Glucose (08/10/2017 1:50 PM EST) athologist Signature POC Glucose 243 (H) 65 - 199 [facility] mg/dL [facility] LABORATORY Comment: Supplemental [...] City/[facility]/ZIP Code Phon e Number [address] POCT Glucose (08/10/2017 11:21 AM EST) athologist Signature POC Glucose 156 65 - 199 [facility] mg/dL [facility] LABORATORY Comment: Supplemental [...] City/[facility]/ZIP Code Phon e Number [address] (ABNORMAL) Differential, Automated (08/10/2017 10:28 AM EST) [facility] Method Time Signature Neutrophils % 85.3 % [facility] LABORATORY Neutr Abs (ANC) 9.43 (H) 1.70 - [facility] 6.[address] [facility] x10(3)/[facility] L LABORATORY Lymphocytes % 5.5 % [facility] LABORATORY Lymphocytes Abs 0.6 (L) 0.9 - 3.2 [facility] x10(3)/[facility] LABORATORY Monocytes % 5.9 % [facility] LABORATORY Monocyte Abs 0.6 0.3 - 0.9 [facility] x10(3)/[facility] LABORATORY Eosinophils % 2.1 % [facility] LABORATORY Eosinophils Abs 0.2 0.0 - 0.4 [facility] x10(3)/[facility] LABORATORY Basophils % 0.4 % [facility] LABORATORY Basophils Abs 0.0 0.0 - 0.1 [facility] x10(3)/[facility] LABORATORY Immature Gran % 0.80 % [facility] [...] [place] [address] (ABNORMAL) Hemogram (08/10/2017 10:28 AM EST) Analysis Performed At Patho logist Time Signature WBC 11.0 (H) 4.0 - 9.5 [facility] x10(3)/[facility] LABORATORY RBC 3.02 (L) 4.58 - [facility] 5.[address] [facility] x10(6)/[facility] LABORATORY Hemoglobin 8.8 (L) 13.7 - [facility] 16.5 gm/dL [facility] LABORATORY Hematocrit 28.1 (L) 40.5 - [place] 48.5 % [facility] LABORATORY MCV 93.0 82.9 - [place] DAV[place] 93.1 [facility] LABORATORY MCH 29.1 27.5 - [place] OLIVASCK 32.1 pg [facility] LABORATORY MCHC 31.3 (L) 32.0 - [place] DAV[place] 35.7 gm/dL [facility] LABORATORY Platelets 207 145 - 357 [facility] ZHAORYAN x10(3)/[facility] LABORATORY RDWSD 55.3 (H) 36.0 - [place] DAV[place] 45.0 [facility] LABORATORY RDWCV 16.4 (H) 11.4 - [place] RYAN 13.8 % [facility] LABORATORY MPV 9.0 7.6 - 12.9 [facility] LABORATORY nRBC % Auto 0.0 % [facility] nRBC Abs Auto 0.000 0.000 - [place] DAVIS 0.[address] [facility] x10(3)/[facility] LABORATORY Specimen Anatomical Collection Method Collection Time Receive d Time (Source) Location / / Volume Laterality Blood specimen 08/10/2017 10:28 8 (specimen) AM EST 10:35 AM EST Resulting Agency Comment Spec In Lab Yonathan Smith MD HEMATOLOGY ORDERABLES Performing Organization Address City/State/ZIP [place] [address] VS Angiogram/intervention (vascular) (08/10/2017 [...] 2.5x80 5. Completion RLE angiogram 6. L PHYSICAL SCIENCE TECHNICIAN angiogram 7. 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 L PHYSICAL SCIENCE TECHNICIAN access in the distal L PHYSICAL SCIENCE TECHNICIAN. - Closure device: Mynx Technical Procedure: [...] for a 45cm 5F Destination. V18 and Laie a nd QuickCross catheters were used to [...] bifurcation. Access appeared in the distal R PHYSICAL SCIENCE TECHNICIAN. Closure and sheath removal was performed [...] 2.5x80 5. Completion RLE angiogram 6. L PHYSICAL SCIENCE TECHNICIAN angiogram 7. 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 L PHYSICAL SCIENCE TECHNICIAN access in the distal L PHYSICAL SCIENCE TECHNICIAN. - Closure device: Mynx Technical Procedure: [...] for a 45cm 5F Destination. V18 and Laie a nd QuickCross catheters were used to [...] bifurcation. Access appeared in the distal R PHYSICAL SCIENCE TECHNICIAN. Closure and sheath removal was performed [...] (ABNORMAL) Differential, Automated (08/10/2017 5:50 AM EST) [facility] Method Time Signature Neutrophils % 80.1 % [facility] LABORATORY Neutr Abs (ANC) 9.01 (H) 1.70 - [facility] 6.[address] [facility] x10(3)/[facility] LABORATORY Lymphocytes % 8.8 % [facility] LABORATORY Lymphocytes Abs 1.0 0.9 - 3.2 [facility] x10(3)/[facility] LABORATORY Monocytes % 8.3 % [facility] LABORATORY Monocyte Abs 0.9 0.3 - 0.9 [facility] x10(3)/[facility] LABORATORY Eosinophils % 2.0 % [facility] LABORATORY Eosinophils Abs 0.2 0.0 - 0.4 [facility] x10(3)/[facility] LABORATORY Basophils % 0.4 % [facility] LABORATORY Basophils Abs 0.0 0.0 - 0.1 [facility] x10(3)/[facility] LABORATORY Immature Gran % 0.40 % [facility] [...] Organization Address City/State/[place] [address] (ABNORMAL) Hemogram (08/10/2017 5:50 AM EST) Analysis Performed At Patho logist Time Signature WBC 11.3 (H) 4.0 - 9.5 [facility] x10(3)/[facility] LABORATORY RBC 3.15 (L) 4.58 - [place] RYAN 5.[address] [facility] x10(6)/[facility] LABORATORY Hemoglobin 8.9 (L) 13.7 - [facility] 16.5 gm/dL [facility] LABORATORY Hematocrit 29.0 (L) 40.5 - [facility] RYAN 48.5 % [facility] LABORATORY MCV 92.1 82.9 - [facility] RYAN 93.1 [facility] LABORATORY MCH 28.3 27.5 - [facility] RYAN 32.1 pg [facility] LABORATORY MCHC 30.7 (L) 32.0 - [facility] RYAN 35.7 gm/dL [facility] LABORATORY Platelets 231 145 - 357 [facility] x[facility](3)/[facility] RDWSD 53.9 (H) 36.0 - [facility] RYAN 45.0 [facility] LABORATORY RDWCV 16.2 (H) 11.4 - [facility] RYAN 13.8 % [facility] LABORATORY MPV 8.7 7.6 - 12.9 [facility] LABORATORY nRBC % Auto 0.0 % [facility] LABORATORY nRBC Abs Auto 0.000 0.000 - [facility] 0.[address] [facility] x10(3)/[facility] LABORATORY Specimen Anatomical Collection Method Collection Time Receive d Time (Source) Location / / Volume Laterality Blood specimen 08/10/2017 5:50 AM 018 5:59 (specimen) EST AM EST Resulting Agency Comment Spec In Lab Yonathan Smith MD HEMATOLOGY ORDERABLES Performing Organization Address City/State/Z[place] [address] (ABNORMAL) Basic Metabolic Panel (non-fasting) (08/10/2017 5:50 AM EST) P athologist Signature Glucose Lvl 135 65 - 199 [facility] mg/dL [facility] LABORATORY Comment: Diabetes: [...] or in patients with acute kidney failure. [email or web address] Specimen Anatomical Collection Method Collection Time Receive d Time (Source) Location / / Volume Laterality Blood specimen 08/10/2017 5:50 AM 018 5:59 (specimen) EST AM EST Resulting Agency Comment Spec In Lab Yonathan Smith MD CHEMISTRY ORDERABLES Performing Organization Address [facility] [place] [address] (ABNORMAL) Prothrombin Time (08/10/2017 [...] HEMATOLOGY ORDERABLES Performing Organization Address City/[facility] [place] [address] (ABNORMAL) POCT Glucose (08/10/2017 4:01 AM EST) athologist Signature POC Glucose 206 (H) 65 - 199 [facility] mg/dL [facility] LABORATORY Comment: Supplemental [...] Address City/State/ZIP Code Phon e Number [address] POCT Glucose (08/10/2017 2:01 AM EST) athologist Signature POC Glucose 188 65 - 199 [facility] mg/dL [facility] LABORATORY Comment: Supplemental [...] City/[facility]/[place] [address] (ABNORMAL) POCT Glucose (08/09/2017 11:42 PM EST) athologist Signature POC Glucose 283 (H) 65 - 199 [facility] Z[facility]ORY[facility] mg/dL [facility] LABORATORY Comment: Supplemental ranges: <140 mg/dL before meals <180 mg/dL all other times of the day Specimen Anatomical Collection Method Collection Time Receive d Time (Source) Location / / Volume Laterality Blood specimen 08/09/2017 11:42 8 (specimen) PM EST 11:42 PM EST Yonathan Smith MD POINT OF CARE TEST ORDERABLE S Performing Organization Address City/State/[place] [address] POCT Glucose (08/09/2017 8:55 PM EST) athologist Signature POC Glucose 182 65 - 199 [place] ZHAORY[facility] mg/dL [facility] LABORATORY Comment: Supplemental [...] City/[facility]/[place] [address] (ABNORMAL) APTT (08/09/2017 6:42 [...] City/[facility]/[place] [address] POCT Glucose (08/09/2017 4:41 PM EST) athologist Signature POC Glucose 195 65 - 199 [facility] mg/dL [facility] Comment: Supplemental [...] City/[facility]/[place] [address] POCT Glucose (08/09/2017 12:29 PM EST) athologist Signature POC Glucose 140 65 - 199 [facility] mg/dL [facility] Comment: Supplemental ranges: <140 mg/dL before meals <180 mg/dL all other times of the day Specimen Anatomical Collection Method Collection Time Receive d Time (Source) Location / / Volume Laterality Blood specimen 08/09/2017 12:29 8 (specimen) PM EST 12:29 PM EST Yonathan Smith MD POINT OF CARE TEST ORDERABLE S Performing Organization Address [facility]/ZIP Code Phon e Number [address] POCT Glucose (08/09/2017 9:59 AM EST) P athologist Signature POC Glucose 135 65 - 199 [facility] mg/dL [facility] Comment: Supplemental ranges: <140 mg/dL before meals <180 mg/dL all other times of the day Specimen Anatomical Collection Method Collection Time Receive d Time (Source) Location / / Volume Laterality Blood specimen 08/09/2017 9:59 AM 018 9:59 (specimen) EST AM EST Yonathan Smith MD POINT OF CARE TEST ORDERABLE S Performing Organization Address [facility]/ZIP Code Phon e Number [address] Specimen to Pathology (08/09/2017 [...] City/[facility]/[place] [address] Surgical Pathology Report (08/09/2017 8:40 AM EST) Component Value Ref Test Analysis Performed At Patholo gist Range Method Time Signature Surgical [id number] ? Location: [facility]; [facility]; [facility] Report The signing pathologist has (i) examined [...] Henrique Flower Verified: ??08/13/2017 ?Pathologist Performed at: ??-[facility] Dept. of [place]ology, [place], [place] CLINICAL INFORMATION Specimen Submitted: A - [...] [place] [address] Anaerobic Culture (08/09/2017 8:30 AM EST) [facility] [place] Method Time Signature Anaerobic No anaerobic [facility] Culture organisms [facility] [...] City/[facility]/[place] [address] (ABNORMAL) Abscess/Wound Aspirate Culture (08/09/2017 8:30 AM EST) [facility] Method Time Signature Abscess/Wound Moderate mixed [facility] Aspirate bacterial [place] Culture morphotypes [facility] normal LABORATORY cutaneous leroy (A) Gram Stain Rare White Blood Cells [place] Few Gram Positive Cocci in pairs [place] () [facility] Organism Gram Positive [place] Cocci in pairs [place] () [facility] Specimen Anatomical Collection Method Collection [...] City/[facility]/ZIP Code Phon e Number [place] [id number]OS[address] POCT Glucose (08/09/2017 4:28 AM EST) P athologist Signature POC Glucose 128 65 - 199 [facility] mg/dL [facility] Comment: Supplemental ranges: <140 mg/dL before meals <180 mg/dL all other times of the day Specimen Anatomical Collection Method Collection Time Receive d Time (Source) Location / / Volume Laterality Blood specimen 08/09/2017 4:28 AM 018 4:28 (specimen) EST AM EST Yonathan Smith MD POINT OF CARE TEST ORDERABLE S Performing Organization Address City/State/[place] [address] ABORH Recheck Status (08/09/2017 1:10 AM EST) [facility] Method Time Signature ABORH Type Completed [facility] LABORATORY Specimen Anatomical Collection Method Collection Time Receive d Time (Source) Location / / Volume Laterality Blood specimen 08/09/2017 1:10 AM 018 1:35 (specimen) EST AM EST Resulting Agency Comment Spec In Lab Yonathan Smith MD BLOOD BANK ORDERABLES Performing Organization Address City/[facility]/[place] [address] Antibody screen (08/09/2017 1:10 AM EST) [facility] Method Time Signature Ab Screen Negative [facility] LABORATORY Expires at 08/12/2017 [facility] 2359 on: [facility] Specimen Anatomical Collection Method Collection Time Receive d Time (Source) Location / / Volume Laterality Blood specimen 08/09/2017 1:10 AM 018 1:35 (specimen) EST AM EST Resulting Agency Comment Spec In Lab Yonathan Smith MD BLOOD BANK ORDERABLES Performing Organization Address City/[facility]/[place] [address] ABO/Rh Typing (08/09/2017 1:10 [...] City/[facility]/[place] [address] (ABNORMAL) APTT (08/09/2017 1:10 [...] [place] [address] (ABNORMAL) Differential, Automated (08/09/2017 1:10 AM EST) [facility] gist Method Time Signature Neutrophils % 76.2 % [facility] Neutr Abs (ANC) 8.59 (H) 1.70 - [facility] 6.[address] [facility] x10(3)/[facility] LABORATORY Lymphocytes % 11.0 % [facility] Lymphocytes Abs 1.2 0.9 - 3.2 [facility] x10(3)/[facility] LABORATORY Monocytes % 8.4 % [facility] Monocyte Abs 1.0 (H) 0.3 - 0.9 [facility] x10(3)/[facility] LABORATORY Eosinophils % 3.5 % [facility] Eosinophils Abs 0.4 0.0 - 0.4 [facility] x10(3)/[facility] LABORATORY Basophils % 0.5 % [facility] Basophils Abs 0.1 0.0 - 0.1 [facility] x10(3)/[facility] LABORATORY Immature Gran % 0.40 % [facility] [...] [place] [address] (ABNORMAL) Hemogram (08/09/2017 1:10 AM EST) Analysis Performed At Patho logist Time Signature WBC 11.3 (H) 4.0 - 9.5 [facility] x10(3)/[facility] LABORATORY RBC 3.47 (L) 4.58 - [facility] 5.[address] [facility] x10(6)/[facility] LABORATORY Hemoglobin 10.0 (L) 13.7 - [facility] 16.5 gm/dL [facility] Hematocrit 31.9 (L) 40.5 - [facility] 48.5 % [facility] MCV 91.9 82.9 - [facility] 93.1 [facility] LABORATORY MCH 28.8 27.5 - [facility] RYAN 32.1 pg [facility] MCHC 31.3 (L) 32.0 - [facility] 35.7 gm/dL [facility] Platelets 234 145 - 357 [facility] x10(3)/[facility] LABORATORY RDWSD 54.0 (H) 36.0 - [facility] RYAN 45.0 [facility] LABORATORY RDWCV 16.2 (H) 11.4 - [facility] 13.8 % [facility] MPV 8.7 7.6 - 12.9 [facility] LABORATORY nRBC % Auto 0.0 % [facility] nRBC Abs Auto 0.000 0.000 - [place] RYAN 0.[address] [facility] x10(3)/[facility] LABORATORY Specimen Anatomical Collection Method Collection Time Receive d Time (Source) Location / / Volume Laterality Blood specimen 08/09/2017 1:10 AM 018 1:19 (specimen) EST AM EST Resulting Agency Comment Spec In Lab Yonathan Smith MD HEMATOLOGY ORDERABLES Performing Organization Address [facility] [place] [address] (ABNORMAL) Prothrombin Time (08/09/2017 [...] ORDERABLES Performing Organization Address [facility] [place] [address] (ABNORMAL) Basic Metabolic Panel (non-fasting) (08/09/2017 1:10 AM EST) athologist Signature Glucose Lvl 108 65 - 199 [facility] mg/dL [facility] Comment: Diabetes: [...] HOSPITAL LABORATORY Estimated GFR 45 (L) >=60 [facility] Comment: The reported eGFR should be multiplied b y 1.2 for patients. The MDRD is not an appropriate measure o f renal function for patients with body mass extremes or in patients with acute kidney failure. http://[employer]/DHnkdep http://[employer]/DHMCnkf Specimen Anatomical Collection Method Collection Time Receive d Time (Source) Location / / Volume Laterality Blood specimen 08/09/2017 1:10 AM 018 1:19 (specimen) EST AM EST Resulting Agency Comment Spec In Lab Yonathan Smith MD CHEMISTRY ORDERABLES Performing Organization Address City/State/ZIP Code Phon e Number [address] POCT Glucose (08/09/2017 12:05 AM EST) athologist Signature POC Glucose 128 65 - 199 [facility] mg/dL [facility] Comment: Supplemental ranges: <140 mg/dL before meals <180 mg/dL all other times of the day Specimen Anatomical Collection Method Collection Time Receive d Time (Source) Location / / Volume Laterality Blood specimen 08/09/2017 12:05 8 (specimen) AM EST 12:05 AM EST Yonathan Smith MD POINT OF CARE TEST ORDERABLE S Performing Organization Address City/State/[place] [address] (ABNORMAL) POCT Glucose (08/08/2017 7:36 PM EST) athologist Signature POC Glucose 215 (H) 65 - 199 [facility]dL [facility] Comment: Supplemental [...] City/[facility]/[place] [address] (ABNORMAL) POCT Glucose (08/08/2017 6:23 PM EST) athologist Signature POC Glucose 216 (H) 65 - 199 [facility] mg/dL [facility] Comment: Supplemental [...] City/[facility]/[place] [address] (ABNORMAL) APTT (08/08/2017 6:00 [...] City/[facility]/ZIP Code Phon e Number [facility] [place] [address] POCT Glucose (08/08/2017 4:42 PM EST) athologist Signature POC Glucose 78 65 - 199 [facility] mg/dL [facility] Comment: Supplemental ranges: <140 mg/dL before meals <180 mg/dL all other times of the day Specimen Anatomical Collection Method Collection Time Receive d Time (Source) Location / / Volume Laterality Blood specimen 08/08/2017 4:42 PM 018 4:42 (specimen) EST PM EST Yonathan Smith MD POINT OF CARE TEST ORDERABLE S Performing Organization Address City/State/[place] [address] (ABNORMAL) POCT Glucose (08/08/2017 4:01 PM EST) athologist Signature POC Glucose 58 (L) 65 - 199 [facility] mg/dL [facility] Comment: Supplemental ranges: <140 mg/dL before meals <180 mg/dL all other times of the day Specimen Anatomical Collection Method Collection Time Receive d Time (Source) Location / / Volume Laterality Blood specimen 08/08/2017 4:01 PM 018 4:01 (specimen) EST PM EST Yonathan Smith MD POINT OF CARE TEST ORDERABLE S Performing Organization Address City/State/[place] [address] POCT Glucose (08/08/2017 11:51 AM EST) athologist Signature POC Glucose 90 65 - 199 [facility] mg/dL [facility] Comment: Supplemental ranges: <140 mg/dL before meals <180 mg/dL all other times of the day Specimen Anatomical Collection Method Collection Time Receive d Time (Source) Location / / Volume Laterality Blood specimen 08/08/2017 11:51 8 (specimen) AM EST 11:51 AM EST Yonathan Smith MD POINT OF CARE TEST ORDERABLE S Performing Organization Address City/State/[place] [address] (ABNORMAL) APTT (08/08/2017 10:27 [...] City/[facility]/ZIP Code Phon e Number [address] POCT Glucose (08/08/2017 8:02 AM EST) athologist Signature POC Glucose 178 65 - 199 [facility] mg/dL [facility] Comment: Supplemental [...] City/[facility]/[place] [address] (ABNORMAL) APTT (08/08/2017 4:51 AM EST) athologist Signature PTT >160 25 - 35 [facility] (Critical) sec [facility] Comment: Called by: HOWARD, Read [...] [place] [address] (ABNORMAL) Differential, Automated (08/08/2017 4:51 AM EST) [facility] gist Method Time Signature Neutrophils % 77.9 % [facility] Neutr Abs (ANC) 8.17 (H) 1.70 - [facility] 6.[address] [facility] x10(3)/[facility] LABORATORY Lymphocytes % 10.3 % [facility] Lymphocytes Abs 1.1 0.9 - 3.2 [facility] x10(3)/[facility] LABORATORY Monocytes % 7.0 % [facility] Monocyte Abs 0.7 0.3 - 0.9 [facility] x10(3)/[facility] LABORATORY Eosinophils % 3.6 % [facility] Eosinophils Abs 0.4 0.0 - 0.4 [facility] x10(3)/[facility] LABORATORY Basophils % 0.5 % [facility] Basophils Abs 0.0 0.0 - 0.1 [facility] x10(3)/[facility] LABORATORY Immature Gran % 0.70 [...] Address City/State/ZIP Code Phon e Number [address] (ABNORMAL) Hemogram (08/08/2017 4:51 AM EST) Analysis Performed At Patho logist Time Signature WBC 10.5 (H) 4.0 - 9.5 [facility] x10(3)/[facility] LABORATORY RBC 3.27 (L) 4.58 - [place] R[place]AN 5.[address] [facility] x10(6)/[facility] LABORATORY Hemoglobin 9.3 (L) 13.7 - [facility] 16.5 gm/dL [facility] Hematocrit 30.3 (L) 40.5 - [facility] 48.5 % [facility] MCV 92.7 82.9 - [facility] 93.1 [facility] LABORATORY MCH 28.4 27.5 - [place] RYAN 32.1 pg [facility] MCHC 30.7 (L) 32.0 - [place] RYAN 35.7 gm/dL [facility] Platelets 252 145 - 357 [facility] x10(3)/[facility] LABORATORY RDWSD 54.6 (H) 36.0 - [place] RYAN 45.0 [facility] LABORATORY RDWCV 16.2 (H) 11.4 - [facility] RYAN 13.8 % [facility] MPV 9.1 7.6 - 12.9 [facility] LABORATORY nRBC % Auto 0.0 % [facility] nRBC Abs Auto 0.000 0.000 - [place] RY[place] 0.[address] [facility] x10(3)/[facility] LABORATORY Specimen Anatomical Collection Method Collection Time Receive d Time (Source) Location / / Volume Laterality Blood specimen 08/08/2017 4:51 AM 018 5:14 (specimen) EST AM EST Resulting Agency Comment Spec In Lab Yonathan Smith MD HEMATOLOGY ORDERABLES Performing Organization Address City/State/[place] [address] (ABNORMAL) Prothrombin Time (08/08/2017 [...] Organization Address City/State/[place] [address] (ABNORMAL) Basic Metabolic Panel (non-fasting) (08/08/2017 4:51 AM EST) athologist Signature Glucose Lvl 229 (H) 65 - 199 [facility] mg/dL [facility] Comment: Diabetes: [...] or in patients with acute kidney failure. http://[employer]/DHnkdep http://[employer]/DHMCnkf Specimen Anatomical Collection Method Collection Time Receive d Time (Source) Location / / Volume Laterality Blood specimen 08/08/2017 4:51 AM 018 5:14 (specimen) EST AM EST Resulting Agency Comment Spec In Lab Yonathan Smith MD CHEMISTRY ORDERABLES Performing Organization Address City/[facility]/ZIP Code Phon e Number [address] POCT Glucose (08/08/2017 4:20 AM EST) athologist Signature POC Glucose 193 65 - 199 [facility] mg/dL [facility] Comment: Supplemental [...] City/[facility]/ZIP Code Phon e Number [address] POCT Glucose (08/07/2017 11:11 PM EST) athologist Signature POC Glucose 124 65 - 199 [facility] mg/dL [facility] Comment: Supplemental [...] City/[facility]/[place] [address] (ABNORMAL) APTT (08/07/2017 10:18 [...] Organization Address City/State/[place] [address] POCT Glucose (08/07/2017 8:10 PM EST) athologist Signature POC Glucose 140 65 - 199 [facility] mg/dL [facility] Comment: Supplemental ranges: <140 mg/dL before meals <180 mg/dL all other times of the day Specimen Anatomical Collection Method Collection Time Receive d Time (Source) Location / / Volume Laterality Blood specimen 08/07/2017 8:10 PM 018 8:10 (specimen) EST PM EST Yonathan Smith MD POINT OF CARE TEST ORDERABLE S Performing Organization Address City/State/[place] [address] POCT Glucose (08/07/2017 5:27 PM EST) athologist Signature POC Glucose 187 65 - 199 [facility] mg/dL [facility] Comment: Supplemental [...] City/[facility]/[place] [address] POCT Glucose (08/07/2017 3:29 PM EST) athologist Signature POC Glucose 86 65 - 199 [facility] mg/dL [facility] Comment: Supplemental ranges: <140 mg/dL before meals <180 mg/dL all other times of the day Specimen Anatomical Collection Method Collection Time Receive d Time (Source) Location / / Volume Laterality Blood specimen 08/07/2017 3:29 PM 018 3:29 (specimen) EST PM EST Yonathan Smith MD POINT OF CARE TEST ORDERABLE S Performing Organization Address [facility] [place] [address] (ABNORMAL) APTT (08/07/2017 2:50 PM EST) athologist [facility] PTT 60 (H) 25 - 35 sec [...] ORDERABLES Performing Organization Address City/[facility]/ZIP [facility] [place] [address] (ABNORMAL) POCT Glucose (08/07/2017 2:23 PM EST) athologist Signature POC Glucose 55 (L) 65 - 199 [place] mg/dL [facility] Comment: Supplemental [...] Address City/State/ZIP Code Phon e Number [address] POCT Glucose (08/07/2017 12:08 PM EST) P athologist Signature POC Glucose 77 65 - 199 [facility] mg/dL [facility] Comment: Supplemental ranges: <140 mg/dL before meals <180 mg/dL all other times of the day Specimen Anatomical Collection Method Collection Time Receive d Time (Source) Location / / Volume Laterality Blood specimen 08/07/2017 12:08 8 (specimen) PM EST 12:08 PM EST Yonathan Smith MD POINT OF CARE TEST ORDERABLE S Performing Organization Address City/State/[place] [address] (ABNORMAL) Differential, Automated (08/07/2017 7:30 AM EST) Patholo gist Method Time Signature Neutrophils % 73.8 % [facility] Neutr Abs (ANC) 7.17 (H) 1.70 - [facility] 6.[address] [facility] x10(3)/[facility] LABORATORY Lymphocytes % 12.2 % [facility] Lymphocytes Abs 1.2 0.9 - 3.2 [facility] x10(3)/[facility] LABORATORY Monocytes % 9.0 % [facility] Monocyte Abs 0.9 0.3 - 0.9 [facility] x10(3)/[facility] LABORATORY Eosinophils % 3.9 % [facility] Eosinophils Abs 0.4 0.0 - 0.4 [facility] x10(3)/[facility] LABORATORY Basophils % 0.6 % [facility] Basophils Abs 0.1 0.0 - 0.1 [facility] x10(3)/[facility] LABORATORY Immature Gran % 0.50 % [facility] [...] City/State/ZIP Code Phon e Number [place] [id number]OS[address] LAB[address] Drive (ABNORMAL) Hemogram (08/07/2017 7:30 AM EST) Analysis Performed At Patho logist Time Signature WBC 9.7 (H) 4.0 - 9.5 [facility] x10(3)/[facility] LABORATORY RBC 3.54 (L) 4.58 - [facility] 5.[address] [facility] x10(6)/[facility] LABORATORY Hemoglobin 9.9 (L) 13.7 - [facility] 16.5 gm/dL [facility] Hematocrit 32.3 (L) 40.5 - [facility] 48.5 % [facility] MCV 91.2 82.9 - [facility] 93.1 [facility] LABORATORY MCH 28.0 27.5 - [facility] 32.1 pg [facility] MCHC 30.7 (L) 32.0 - [facility] 35.7 gm/dL [facility] Platelets 312 145 - 357 [facility] x10(3)/[facility] LABORATORY RDWSD 53.2 (H) 36.0 - [facility].0 [facility] RDWCV 16.0 (H) 11.4 - [facility] 13.8 % [facility] MPV 8.9 7.6 - 12.9 [facility] LABORATORY nRBC % Auto 0.0 % [facility] nRBC Abs Auto 0.000 0.000 - [facility] 0.[address] [facility] x10(3)/[facility] LABORATORY Specimen Anatomical Collection Method Collection Time Receive d Time (Source) Location / / Volume Laterality Blood specimen 08/07/2017 7:30 AM 018 7:45 (specimen) EST AM EST Resulting Agency Comment Spec In Lab Yonathan Smith MD HEMATOLOGY ORDERABLES Performing Organization Address City/State/ZIP [place] [address] (ABNORMAL) Basic Metabolic Panel (non-fasting) (08/07/2017 7:30 AM EST) athologist Signature Glucose Lvl 80 65 - 199 [facility] mg/dL [facility] Comment: Diabetes: [...] HOSPITAL LABORATORY Estimated GFR 59 (L) >=60 [facility] Comment: The reported eGFR should be multiplied b y 1.2 for patients. The MDRD is not an appropriate measure o f renal function for patients with body mass extremes or in patients with acute kidney failure. http://[employer]/DHnkdep http://[employer]/[facility] WAGONERnkf Specimen Anatomical Collection Method Collection Time Receive d Time (Source) Location / / Volume Laterality Blood specimen 08/07/2017 7:30 AM 018 7:45 (specimen) EST AM EST Resulting Agency Comment Spec In Lab Yonathan Smith MD CHEMISTRY ORDERABLES Performing Organization Address City/[facility]/ZIP [facility] Phon e Number [address] POCT Glucose (08/07/2017 7:27 AM EST) athologist Signature POC Glucose 81 65 - 199 [facility] mg/dL [facility] Comment: Supplemental ranges: <140 mg/dL before meals <180 mg/dL all other times of the day Specimen Anatomical Collection Method Collection Time Receive d Time (Source) Location / / Volume Laterality Blood specimen 08/07/2017 7:27 AM 018 7:27 (specimen) EST AM EST Yonathan Smith MD POINT OF CARE TEST ORDERABLE S Performing Organization Address City/[facility] Phon e Number [address] APTT (08/07/2017 7:04 AM [...] Organization Address City/State/[place] [address] (ABNORMAL) Prothrombin Time (08/07/2017 [...] Organization Address City/State/[place] [address] POCT Glucose (08/07/2017 4:03 AM EST) athologist Signature POC Glucose 93 65 - 199 [facility] mg/dL [facility] Comment: Supplemental ranges: <140 mg/dL before meals <180 mg/dL all other times of the day Specimen Anatomical Collection Method Collection Time Receive d Time (Source) Location / / Volume Laterality Blood specimen 08/07/2017 4:03 AM 018 4:03 (specimen) EST AM EST Yonathan Smith MD POINT OF CARE TEST ORDERABLE S Performing Organization Address City/State/[place] [address] POCT Glucose (08/07/2017 12:04 AM EST) athologist Signature POC Glucose 107 65 - 199 [facility] mg/dL [facility] Comment: Supplemental [...] City/[facility]/ZIP Code Phon e Number [address] POCT Glucose (08/06/2017 7:56 PM EST) P athologist Signature POC Glucose 178 65 - 199 [facility] mg/dL [facility] Comment: Supplemental [...] Address City/State/ZIP Code Phon e Number [address] TcPO2 (08/06/2017 2:32 PM EST) Component Value Ref Test Analysis Performed At Patholo gist Range Method Time Signature VB Text Department: Vascular Surgery Lab VASCUBASE Report Patient: [id number] (GREGORY HOANG) CPT: 6258453 ICD10: I99.8 Referring Physician: YONATHAN SMITH ?? [...]
Routine documented in this encounter Care Teams National Stormwater Leader Relationship Specialty Start Date End Date Lovely Vicente MD PCP - General 04/16/[address] [place] [address] [address] [place] [address] documented as of this encounter
--- OUTSIDE RECORDS SUMMARY | 2022-04-29 08:13 | XMS_ITS | Encounter Summary ---
:1945 Author Organization [facility] [place] [address] Care Team Providers Name Role Phone Lovely Vicente MD Primary Care Provider Encounter Details Date Type Department Care Team Description 08/09/2017 Clinical Support Same Day at [facility] Canceled (D-SCHED ERROR [facility] / CORRECT ION ) [place] [address] Social History Tobacco Use Types Packs/Day [...] MD [facility] er [address] [place], [place] [address] (Wo rk) 05/28/2022 Laboratory Appointment Lab 05/28/2022 Office Visit Cardiology Zulma Dolan MD [facility] [place] [address] Liz Poole PA [facility] [place] [address] 06/10/2022 Office Visit Dermatology Laura Scherer MD [facility] [address] [place], [place] 0[address] (Wo rk) documented as of this encounter Procedures Procedure Name Priority Date/Time Associated Diagnosis Comme nts MEDICAL SURGERY NURSE 08/09/2017 12:00 AM Resul ts for this SCAN EST procedure are i n the results section. documented in this encounter Results SCAN DOC: MEDICAL SURGERY NURSE (08/09/2017 12:00 AM EST) Narrative 08/09/2017 12:00 AM EST This result has an attachment that is no t available. Ordered by an unspecified provider. Scanning Provider MEDIA MGR SCAN EXT ORDR/RSLT documented in this encounter Visit Diagnoses Not on filedocumented in this encounter Care Teams Band Instrument Maker Relationship Specialty Start Date End Date Lovely Vicente MD PCP - General 04/16/[address] [place] [address] documented as of this encounter
--- OUTSIDE RECORDS SUMMARY | 2022-04-29 08:14 | XMS_ITS | Encounter Summary ---
:1945 Author Organization [facility] [place] [address] Care Team Providers Name Role Phone Lovely Vicente MD Primary Care Provider Reason for Visit Reason Comments Foot Ulcer WOUND CHECK Auth/Cert Specialty Diagnoses / Procedures Referred By Contact Refer red To Contact Diagnoses Critical lower limb ischemia CELLULITIS RT FOOT Procedures EMERGENCY Referral ID Status Reason Start Date Expiration Date Visits Requ ested Visits Authorized [id number] 1 1 Encounter Details Date Type Department Care Team Description 08/06/2017 [facility] lower limb [facility] ischemia [facility] [address] [place], [place] VASCULAR SURGERY [id number] [place] [address] [phone] Social History Tobacco Use Types Packs/Day Years [...] Smith MD - 08/06/2017 1:00 PM EST [facility] staff: 1. RIGHT leg CLI [...] Dolan MD [facility] [address] [place], [place] [address] (Wo ) 05/28/2022 Laboratory Appointment Lab 05/28/2022 Office Visit Cardiology Zulma Dolan MD [facility] [place] [address] Liz Poole PA [facility] [place] [address] 06/10/2022 Office Visit Dermatology Laura Scherer MD [facility] [address] [place], [place] 0[address] (Wo rk) documented as of this encounter Visit Diagnoses Diagnosis Critical lower limb ischemia Unspecified circulatory system disorder documented in this encounter Care Teams Carpenter'S Assistant Relationship Specialty Start Date End Date Lovely Vicente MD PCP - General 04/16/[address] [place], [place] [address] documented as of this encounter
--- OUTSIDE RECORDS SUMMARY | 2022-04-29 08:14 | XMS_ITS | Encounter Summary ---
:1945 Author Organization [facility] [place] [address] Care Team Providers Name Role Phone Lovely Vicente MD Primary Care Provider Reason for Visit Auth/Cert Specialty Diagnoses / Procedures Referred By Contact Refer red To Contact Diagnoses Critical lower limb ischemia CELLULITIS RT FOOT Procedures EMERGENCY Referral ID Status Reason Start Date Expiration Date Visits Requ ested Visits Authorized [id number] 1 1 Encounter Details Date Type Department Care Team Description 08/04/2017 [facility] Barbara F[place] thrombosis of [facility] [place] [address] Social History Tobacco Use Types Packs/Day Years [...] Dolan MD [facility] [place], [place] [address] (Wo rk) 05/28/2022 Laboratory Appointment Lab 05/28/2022 Office Visit Cardiology Zulma Dolan MD [facility] [place] [address] Liz Poole PA [facility] [place] [address] 06/10/2022 Office Visit Dermatology Laura Scherer MD [facility] DR [address] [place], [place] 0[address] (Wo rk) documented as of [...] Department: Vascular Surgery Lab VASCUBASE Report Patient: [id number] (DON HOANG) CPT: 12590 ICD10: I82.541 Referring Physician: MEÑO HUTSON ?? [...] extremity documented in this encounter Care Teams Soccer Ball Assembler Relationship Specialty Start Date End Date Lovely Vicente MD PCP - General 04/16/[address] [place] [address] documented as of this encounter
--- OUTSIDE RECORDS SUMMARY | 2022-04-29 08:14 | XMS_ITS | Encounter Summary ---
:1945 Author Organization [facility] [place] [address] Care Team Providers Name Role Phone Lovely Vicente MD Primary Care Provider Encounter Details Date Type Department Care Team Description 08/02/2017 Telephone Pain Management at [facility] [place], [place] [address] Social History Tobacco Use Types Packs/Day [...] Management Center Preauthorization Request Patient: Don Fatima [id number] Fax received from [facility] requesting we obtain prior authorization for Lidocaine patches prescribed by Barbra Soares APRN. RX insurance plan: [employer] RX insurance telephone: [phone] Patient Diagnosis: right foot pain secondary to PVD and ischemia Previous medications attempted: Tylenol, Tramadol, Dilaudid The following action was taken after discussion with the service dog trainer: _x_ pharmacy informed Authorized dosage or amount: 5% on patch on for 12 hours, then remove for 12 hours. Angeles Rodrigez, RN documented in this encounter Plan of Treatment Upcoming Encounters Date Type Specialty Care Team Description 05/28/2022 Appointment Cardiology Zulma Dolan MD [facility] [place], [place] 0[address] (Wo rk) 05/28/2022 Laboratory Appointment Lab 05/28/2022 Office Visit Cardiology Zulma Dolan MD [facility] [place] [address] [facility] [place] [address] 06/10/2022 Office Visit Dermatology Laura Scherer MD [facility] DR [address] [place], [place] [address] (Wo rk) documented as of this encounter Visit Diagnoses Not on filedocumented in this encounter Care Teams Brazing Machine Operator Automatic Relationship Specialty Start Date End Date Lovely Vicente MD PCP - General 04/16/[address] [place] [address] documented as of this encounter
--- OUTSIDE RECORDS SUMMARY | 2022-04-29 08:14 | XMS_ITS | Encounter Summary ---
:1945 [place] [address] Care Team Providers Name Role Phone Lovely Vicente MD Primary Care Provider Encounter Details Date Type Department Care Team Description 08/03/2017 Hospital Encounter Radiology Library at [place], Tommy Mijares [facility] [place] [address] VASCULAR SURGERY [phone] [place], [place] [address] (Wo rk) Social History Tobacco [...] Dolan MD [facility] [address] [place], [place] [address] (Wo rk) 05/28/2022 Laboratory Appointment Lab 05/28/2022 Office Visit Cardiology Zulma Dolan MD [facility] [place] [address] Liz Poole PA [facility] [place] [address] 06/10/2022 Office Visit Dermatology Laura Scherer MD [facility] [address] [place], [place] [address] [...] Received Time / Laterality Volume Narrative [facility] - 08/03/2017 6:01 PM EST This exam is for storage only and is aut o-finalizing. Arik Clement MD G FILM LIBRARY ORDERABLES Performing Organization Address City/State/ZIP Code Phon e Number [place], [place] documented in this encounter Visit Diagnoses Diagnosis Pain Generalized pain documented in this encounter Care Teams Supervisor Waterproofing Relationship Specialty Start Date End Date Lovely Vicente MD PCP - General 04/16/[address] [place] [address] documented as of this encounter
--- OUTSIDE RECORDS SUMMARY | 2022-04-29 08:14 | XMS_ITS | Encounter Summary ---
:1945 [place] [address] Care Team Providers Name Role Phone Lovely Vicente MD Primary Care Provider Reason for Visit Auth/Cert Specialty Diagnoses / Procedures Referred By Contact Refer red To Contact Diagnoses Critical lower limb ischemia CELLULITIS RT FOOT Procedures EMERGENCY Referral ID Status Reason Start Date Expiration Date Visits Requ ested Visits Authorized [id number] 1 1 Encounter Details Date Type Department Care Team Description 08/09/2017 Anesthesia Event Main Operating Room Daniele Lizama MD [facility] [place] [address] [facility] Rob Jones MD [facility] [place] [address] [place] [address] Anesthesia Record Procedure Summary Procedure Name [...] 8 1047 by vein (medial side of Aleix Knowles, Dory arm), right; VAMSI Rios, RN dddj-xay-evvhii catheter system; 20 gauge; 08/16/17; 1047 PIV 07/29/17; 1413; median 07/29/17 1413 by 08/16/17 1047 by cubital vein (antecubital Magdalene Hickey Williams, Dory fossa), left; VAMSI Wyatt, RN juqp-yim-eguyze catheter system; 20 gauge; 08/16/17; 1047 PIV 08/06/17; 1742; cephalic 08/06/17 1742 by 0920 by vein (lateral side of Taylor Laureano Danah y, Caitlyn C, arm), right; VAMSI BONNER xmxz-ouj-mykubd catheter system; 22 gauge, 1 in length; Eliseo LAUREANO RN VAS; distraction, intradermal injection, tolerated well, appears comfortable; 0; 08/16/17; 0920 Wound 08/07/17; 1335; knee; 08/07/17 1335 by 08/16/17 1047 by laceration; wound occured Barbara Albert iams, Dory PUBLIC HEALTH NUTRITIONIST; 08/16/17; 1047 VAMSI Alonzo, RN PIV 08/07/17; 1734; cephalic 08/07/17 1734 by 1047 by vein (lateral side of Kendrick, Carlos W, Willia ms, Dory arm), left; MARCIE Wyatt RN itwr-uhr-dumljb catheter system; 22 gauge; distraction, intradermal injection, [...] Santillan MD - 08/09/2017 9:01 AM EST [facility] Department of Anesthesiology Post-procedure Note Patient: Don Fatima Procedure Summary Date Anesthesia Start Anesthesia Stop Room / Location 08/09/17 0802 0901 [facility] OR 14 / [facility] MAIN OR Procedure Diagnosis Surgeon Responsible Provider AMPUTATION, 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 Nerve [...] [facility] MA[facility] OR Social History Substance [...] adequate IV access. Brody Santillan MD PGY-2, County Director Welfare Pager #[phone] Anesthesiology Staff (Dewhirst): Pre-op summary note as [...] Cardiology Zulma Dolan MD [facility] [address] [place], [place] [address] (Wo rk) 05/28/2022 Laboratory Appointment Lab 05/28/2022 Office Visit Cardiology Zulma Dolan MD [facility] [address] Liz Poole PA [facility] [place] [address] 06/10/2022 Office Visit Dermatology Laura Scherer MD [facility] DR [address] [place], [place] [address] (Wo rk) documented as of [...] Length: 10 cm Gauge: 21 Needle Type: B-lkbqp-lbzkh Medication injection made in crementally with aspirations. [...] Procedure) documented in this encounter Care Teams Carpenter Repairer Relationship Specialty Start Date End Date Lovely Vicente MD PCP - General 04/16/[address] [place] [address] documented as of this encounter
--- OUTSIDE RECORDS SUMMARY | 2022-04-29 08:14 | XMS_ITS | Encounter Summary ---
:1945 Author Organization [facility] [place] [address] Care Team Providers Name Role Phone Lovely Vicente MD Primary Care Provider Reason for Visit Auth/Cert Specialty Diagnoses / Procedures Referred By Contact Refer red To Contact Diagnoses Critical lower limb ischemia CELLULITIS RT FOOT Procedures EMERGENCY Referral ID Status Reason Start Date Expiration Date Visits Requ ested Visits Authorized [id number] 1 1 Encounter Details Date Type Department Care Team Description 08/06/2017 Laboratory Appointment Lab at [facility] Ischemia of foot [facility] [place] [address] Social History Tobacco Use Types Packs/Day [...] [facility] er [address] [place] [address] (Wo rk) 05/28/2022 Laboratory Appointment Lab 05/28/2022 Office Visit Cardiology Zulma Dolan [place] [address] Liz Poole PA [facility] [place] [address] 06/10/2022 Office Visit Dermatology Laura Scherer MD [facility] ER DR [address]-DERMAT [facility] [place], [place] [address] (Wo rk) documented as [...] Signature Prealbumin 19 (L) 20 - 40 [facility] mg/dL [facility]OR[facility]ORY Comment: Prealbumin levels are [...] City/State/[place] [address] (ABNORMAL) Basic Metabolic Panel (non-fasting) (08/06/2017 12:32 PM EST) P athologist Signature Glucose Lvl 92 65 - 199 [facility] mg/dL [facility] [...] mg/dL [facility] Estimated GFR 53 (L) >=60 [facility] LABORATORY Comment: The reported eGFR should be multiplied b y 1.2 for patients. The MDRD is not an appropriate measure o f renal function for patients with body mass extremes or in patients with acute kidney failure. http://XillianTV/DHnkdep http://XillianTV/DHMCnkf Specimen Anatomical Collection Method Collection Time Receive d Time (Source) Location / / Volume Laterality Blood specimen 08/06/2017 12:32 8 1:15 (specimen) PM EST PM EST Resulting Agency Comment Spec In Lab Arik Clement MD CHEMISTRY ORDERABLES Performing Organization Address City/State/[place] [address] (ABNORMAL) Hemogram (08/06/2017 12:32 PM EST) Analysis Performed At Patho logist Time Signature WBC 11.8 (H) 4.0 - 9.5 [facility] x10(3)/[facility] LABORATORY RBC 3.49 (L) 4.58 - [facility] 5.54 [facility] x10(6)/[facility] LABORATORY Hemoglobin 9.9 (L) 13.7 - [facility] 16.5 gm/dL [facility] LABORATORY Hematocrit 32.0 (L) 40.5 - [facility] 48.5 % [facility] LABORATORY MCV 91.7 82.9 - [facility] 93.[address] [facility] LABORATORY MCH 28.4 27.5 - [facility] DAVIS 32.1 pg [facility] LABORATORY MCHC 30.9 (L) 32.0 - [facility] 35.7 gm/dL [facility]ORY Platelets 326 145 - 357 [facility] x10(3)/[facility] LABORATORY RDWSD 53.4 (H) 36.0 - [place] DAVIS 45.[address] [facility] LABORATORY RDWCV 16.0 (H) 11.4 - [place] RYAN 13.8 % [facility] LABORATORY MPV 9.1 7.6 - 12.9 [facility] LABORATORY nRBC % Auto 0.0 % [facility] LABORATORY nRBC Abs Auto 0.000 0.000 - [place] DAVIS 0.000 [facility] x10(3)/[facility] LABORATORY Specimen Anatomical Collection Method Collection Time Receive d Time (Source) Location / / Volume Laterality Blood specimen 08/06/2017 12:32 8 1:15 (specimen) PM EST PM EST Resulting Agency Comment Spec In Lab Arik Clement MD HEMATOLOGY ORDERABLES Performing Organization Address City/State/ZIP Code Phon e Number [place] [id number] HOS[address]ITAL LAB[address] documented in this encounter Visit Diagnoses Diagnosis Ischemia of foot Unspecified circulatory system disorder documented in this encounter Care Teams Polisher Aluminum Relationship Specialty Start Date End Date Lovely Vicente MD PCP - General 04/16/[address] [place] [address] documented as of this encounter
--- OUTSIDE RECORDS SUMMARY | 2022-04-29 08:14 | XMS_ITS | Encounter Summary ---
:1945 [place] [address] Care Team Providers Name Role Phone Lovely Vicente MD Primary Care Provider Encounter Details Date Type Department Care Team Description 08/04/2017 Notes Only Pain Management at Barbra Bruno, STACIE [facility] [place] [address] [place] [address] [phone] (Wo rk) Social History Tobacco Use Types [...] bid) at this time. Barbra Soares, MSN, SPACE SCIENCES DIRECTOR-BC, [facility] Pain [facility] Clinic documented in this encounter Plan of Treatment Upcoming Encounters Date Type Specialty Care Team Description 05/28/2022 Appointment Cardiology Zulma Dolan MD [facility] [address] [place], [place] [address] (Wo rk) 05/28/2022 Laboratory Appointment Lab 05/28/2022 Office Visit Cardiology Zulma Dolan MD [facility] [place] [address] [facility] [place] [address] 06/10/2022 Office Visit Dermatology Laura Scherer MD [facility] [address] [place], [place] 0[address] (Wo rk) documented as of this encounter Visit Diagnoses Not on filedocumented in this encounter Care Teams Senior Naval Parachutist Relationship Specialty Start Date End Date Lovely Vicente MD PCP - General 04/16/[address] [place] [address] documented as of this encounter
--- OUTSIDE RECORDS SUMMARY | 2022-04-29 08:14 | XMS_ITS | Encounter Summary ---
:1945 Author Organization [place] [address] Care Team Providers Name Role Phone Lovely Vicente MD Primary Care Provider Encounter Details Date Type Department Care Team Description 07/29/2017 Transcribe Orders Laboratory Lovely Vicente MD [address] [address] [place] [address] [phone] (Wo rk) Social History Tobacco Use Types [...] MD [facility] er [address] [place] [address] (Wo rk) 05/28/2022 Laboratory Appointment Lab 05/28/2022 Office Visit Cardiology Zulma Dolan MD [facility] [place] [address] Liz Poole PA [facility] [place] [address] 06/10/2022 Office Visit Dermatology Laura Scherer MD [facility] ER DR [address] [place], [place] 0[address] (Wo rk) documented as of this encounter Visit Diagnoses Not on filedocumented in this encounter Care Teams Shafting Worker Relationship Specialty Start Date End Date Lovely Vicente MD PCP - General 04/16/[address] [place] [address] documented as of this encounter
--- OUTSIDE RECORDS SUMMARY | 2022-04-29 08:14 | XMS_ITS | Encounter Summary ---
:1945 Author Organization [facility] [place] [address] Care Team Providers Name Role Phone Lovely Vicente MD Primary Care Provider Encounter Details Date Type Department Care Team Description 07/29/2017 Transcribe Orders Laboratory Lovely Vicente MD [address] [address] [place] [address] [phone] (Wo rk) Social History Tobacco Use Types [...] Description 05/28/2022 Appointment Cardiology Zulam Dolan MD [facility] [place] [address] [place] [address] (Wo rk) 05/28/2022 Laboratory Appointment Lab 05/28/2022 Office Visit Cardiology Zulma Dolan MD [facility] [place] [address] Liz Poole PA [facility] [place] [address] 06/10/2022 Office Visit Dermatology Laura Scherer MD [facility] ER DR [address] [place], [place] [address] (Wo rk) documented as of this encounter Visit Diagnoses Not on filedocumented in this encounter Care Teams Take Down Sorter Relationship Specialty Start Date End Date Lovely Vicente MD PCP - General 04/16/[address] [place] [address] documented as of this encounter
--- OUTSIDE RECORDS SUMMARY | 2022-04-29 08:14 | XMS_ITS | Encounter Summary ---
:1945 Author Organization [facility] [place] [address] Care Team Providers Name Role Phone Lovely Vicente MD Primary Care Provider Reason for Visit Auth/Cert Specialty Diagnoses / Procedures Referred By Contact Refer red To Contact Diagnoses Critical lower limb ischemia CELLULITIS RT FOOT Procedures EMERGENCY Referral ID Status Reason Start Date Expiration Date Visits Requ ested Visits Authorized [id number] 1 1 Encounter Details Date Type Department Care Team Description 08/06/2017 Clinical Support [place] [facility] [place] foot [facility] [place] [address] Social History Tobacco Use Types Packs/Day [...] Dolan MD [facility] [address] [place], [place] [address] (Wo rk) 05/28/2022 Laboratory Appointment Lab 05/28/2022 Office Visit Cardiology Zulma [place]olan [place] [address] Liz Poole PA [facility] [place] [address] 06/10/2022 Office Visit Dermatology Laura Scherer MD [facility] [address] [place], [place] [address] (Wo rk) documented as of [...] 444 ms MUSE SYSTEM (Bezet) Calculated P Junior 44 degrees MUSE SYSTEM Calculated R Junior -31 degrees MUSE SYSTEM Calculated T Junior 106 degrees MUSE SYSTEM INTERPRETATION Normal sinus [...] disorder documented in this encounter Care Teams Cable Splicer Apprentice Relationship Specialty Start Date End Date Lovely Vicente MD PCP - General 04/16/[address] [place] [address] documented as of this encounter
--- OUTSIDE RECORDS SUMMARY | 2022-04-29 08:14 | XMS_ITS | Encounter Summary ---
:1945 Author Organization [facility] [place] [address] Care Team Providers Name Role Phone Lovely Vicente MD Primary Care Provider Reason for Visit Auth/Cert Specialty Diagnoses / Procedures Referred By Contact Refer red To Contact Diagnoses Critical lower limb ischemia CELLULITIS RT FOOT Procedures EMERGENCY Referral ID Status Reason Start Date Expiration Date Visits Requ ested Visits Authorized [id number] 1 1 Encounter Details Date Type Department Care Team Description 08/04/2017 Office Visit Cardiology at [facility] Danette Maxwell Incisional pain; [facility] A, THIRD HAND Ischemic cardiomyopathy; [facility] ASCVD (arteriosclerotic card iovascular disease); [place], [place] Systolic heart failure, unspecified hear t failure chronicity [phone] CARDIOLOGY [phone] [place], [place] [address] Social History Tobacco Use Types [...] in this encounter Progress Notes Danette Maxwell, THIRD HAND - 08/04/2017 3:00 PM EST ID [...] 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 [...] Zulma Dolan MD [facility] [address] [place], [place] [address] (Wo rk) 05/28/2022 Laboratory Appointment Lab 05/28/2022 Office Visit Cardiology Zulma Dolan MD [facility] [address] Liz Poole PA [facility] [place] [address] 06/10/2022 Office Visit Dermatology Laura Scherer MD [facility] DR [address]MAT [place], [place] [address] (Wo rk) documented as [...] sensation documented in this encounter Care Teams Optical Glass Sawyer Relationship Specialty Start Date End Date Lovely Vicente MD PCP - General 04/16/[address] [place] [address] documented as of this encounter
--- OUTSIDE RECORDS SUMMARY | 2022-04-29 08:14 | XMS_ITS | Encounter Summary ---
:1945 Author Organization [facility] Address [facility] [place] [address] Care Team Providers Name Role Phone Lovely Vicente MD Primary Care Provider Reason for Visit Auth/Cert Specialty Diagnoses / Procedures Referred By Contact Refer red To Contact Diagnoses Critical lower limb ischemia CELLULITIS RT FOOT Procedures EMERGENCY Referral ID Status Reason Start Date Expiration Date Visits Requ ested Visits Authorized [id number] 1 1 Encounter Details Date Type Department Care Team Description 08/04/2017 Laboratory Lab 3L [place] Cardiomyopathy, unspecified type; Appointment [facility] Systolic congestive heart failure, unspecified congestive heart failure chronicity; Hospital Coronary artery rupture; [facility] Ischemic cardiomyopathy; Drive Atherosclerosis of shoshone[place]bannock co ronary artery, angina presence unspecified, unspecified whether shoshone-bannock or transplanted heart; [place], [place] Essential hyper tension, malignant; [phone] 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, unspecified watermaster insulin use status [phone] Social History Tobacco Use Types Packs/Day Years [...] [facility] [address] [place] [address] (Wo rk) 05/28/2022 Laboratory Appointment Lab 05/28/2022 Office Visit Cardiology Zulma Dolan MD [facility] [place] [address] Liz Poole PA [facility] [place] [address] 06/10/2022 Office Visit Dermatology Laura Scherer MD [facility] ER DR [address]MAT [place], [place] [address] (Wo rk) documented as of this encounter Procedures Procedure Name Priority Date/Time Associated Diagnosis Comme nts HEMOGRAM Routine 08/04/2017 12:55 Essential Results for this PM EST hypertension, procedure are in malignant the results section. PROTHROMBIN TIME Routine 08/04/2017 12:55 Coronary artery Resu lts for this PM EST rupture procedure are in Ischemic the results cardiomyopathy section. Atherosclerosis of shoshone-bannock coronary artery, angina presence unspecified, unspecified whether shoshone-bannock or transplanted heart URIC ACID Routine 08/04/2017 [...] 7.1 3.5 - 8.5 [facility] mg/dL [facility] Specimen Anatomical Collection Method Collection Time Receive d Time (Source) Location / / Volume Laterality Blood specimen 08/04/2017 12:55 8 1:01 (specimen) PM EST PM EST Resulting Agency Comment Spec In Lab Lovely Vicente MD CHEMISTRY ORDERABLES Performing Organization Address City/[facility]/[place] [address] (ABNORMAL) Hemogram (08/04/2017 12:55 PM EST) Analysis Performed At Patho logist Time Signature WBC 15.8 (H) 4.0 - 9.5 [facility] x10(3)/[facility] LABORATORY RBC 3.48 (L) 4.58 - [facility] RYAN 5.54 [facility] x10(6)/[facility] LABORATORY Hemoglobin 9.9 (L) 13.7 - [facility] 16.5 gm/dL [facility] Hematocrit 31.4 (L) 40.5 - [facility] 48.5 % [facility] MCV 90.2 82.9 - [facility] 93.1 [facility] LABORATORY MCH 28.4 27.5 - [facility] 32.1 pg [facility] MCHC 31.5 (L) 32.0 - [facility] 35.7 gm/dL [facility] Platelets 310 145 - 357 [facility] x10(3)/[facility] LABORATORY RDWSD 51.8 (H) 36.0 - [facility] 45.0 [facility] LABORATORY RDWCV 15.8 (H) 11.4 - [facility] RYAN 13.8 % [facility] MPV 8.9 7.6 - 12.9 [facility] LABORATORY nRBC % Auto 0.0 % [facility] nRBC Abs Auto 0.000 0.000 - [facility] 0.000 [facility] x10(3)/[facility] LABORATORY Specimen Anatomical Collection Method Collection Time Receive d Time (Source) Location / / Volume Laterality Blood specimen 08/04/2017 12:55 8 1:01 (specimen) PM EST PM EST Resulting Agency Comment Spec In Lab Lovely Vicente MD HEMATOLOGY ORDERABLES Performing Organization Address City/State/[place] [address] (ABNORMAL) Comprehensive metabolic panel (non-fasting) (08/04/2017 12:55 PM EST) athologist Signature Glucose Lvl 208 (H) 65 - 199 [facility] mg/dL [facility] Comment: Diabetes: [...] CENTER LABORATORY Estimated GFR 43 (L) >=60 [facility] Comment: The reported eGFR should be multiplied b y 1.2 for patients. The MDRD is not an appropriate measure o f renal function for patients with body mass extremes or in patients with acute kidney failure. http://Mersive/DHnkdep http://Mersive/DHMCnkf Specimen Anatomical Collection Method Collection Time Receive d Time (Source) Location / / Volume Laterality Blood specimen 08/04/2017 12:55 8 1:01 (specimen) PM EST PM EST Resulting Agency Comment Spec In Lab Lovely Vicente MD CHEMISTRY ORDERABLES Performing Organization Address City/State/ZIP Code Phon e Number [place] [id number] (ABNORMAL) Hemoglobin A1c (08/04/2017 12:55 PM EST) Analysis Performed At Patho logist Time Signature Hemoglobin A1C 6.2 (H) 4.3 - 5.6 [facility] [...] with hemoglobinopathies. Additional resources are available on [facility] website. Macario HAMMOND, Ruthann J, Deysi R, et al. ??Tr anslating the A1C assay into estimated average glucose values. ??Diabetes Care 2008:31(8):9225-1209. Specimen Anatomical Collection Method Collection Time Receive d Time (Source) Location / / Volume Laterality Blood specimen 08/04/2017 12:55 8 1:01 (specimen) PM EST PM EST Resulting Agency Comment Spec In Lab Lovely Vicente MD CHEMISTRY ORDERABLES Performing Organization Address [facility] [place] [address] (ABNORMAL) Prothrombin Time (08/04/2017 [...] Vicente MD HEMATOLOGY ORDERABLES Performing Organization Address [facility] [place] [address] (ABNORMAL) pro-Brain Natriuretic Peptide (08/04/2017 12:55 PM EST) P athologist Signature ProBNP 3,133 (H) <=125 [facility] pg/mL [facility] Specimen Anatomical Collection Method Collection Time Receive d Time (Source) Location / / Volume Laterality Blood specimen 08/04/2017 12:55 8 1:01 (specimen) PM EST PM EST Resulting Agency Comment Spec In Lab Danette Maxwell APRN CHEMISTRY ORDERABLES Performing Organization Address City/State/[place] [address] documented in this encounter Visit Diagnoses Diagnosis Cardiomyopathy, unspecified type Systolic congestive heart failure, unspe cified congestive heart failure chronicity Coronary artery rupture Acute myocardial infarction, unspecified site, episode of care unspecified Ischemic cardiomyopathy Other specified forms of chronic ischemi c heart disease Atherosclerosis of shoshone-bannock coronary arter y, angina presence unspecified, unspecified whether shoshone-bannock or transplanted heart Essential hypertension, malignant Diabetes mellitus due to underlying cond ition with diabetic nephropathy, unspecified watermaster insulin use status documented in this encounter Care Teams Housing Development Specialist Relationship Specialty Start Date End Date Lovely Vicente MD PCP - General 04/16/[address] [place] [address] documented as of this encounter
--- OUTSIDE RECORDS SUMMARY | 2022-04-29 08:14 | XMS_ITS | Encounter Summary ---
:1945 Author Organization [facility] [place] [address] Care Team Providers Name Role Phone Lovely Vicente MD Primary Care Provider Encounter Details Date Type Department Care Team Description 08/04/2017 Orders Only Cardiac Surgery Makayla Wilson APRN [facility] [place] [address] CARDIAC SURGERY [phone] [place], [place] [address] (Wo rk) Social History Tobacco [...] MD [facility] er [place], [place] [address] (Wo rk) 05/28/2022 Laboratory Appointment Lab 05/28/2022 Office Visit Cardiology Zulma Dolan MD [facility] [place] [address] Liz Poole PA [facility] [place] [address] 06/10/2022 Office Visit Dermatology Laura Scherer MD [facility] DR [address] [place], [place] [address] (Wo rk) documented as of this encounter Visit Diagnoses Not on filedocumented in this encounter Care Teams Aquatics Specialist Relationship Specialty Start Date End Date Lovely Vicente MD PCP - General 04/16/[address] [place] [address] documented as of this encounter
--- OUTSIDE RECORDS SUMMARY | 2022-04-29 08:14 | XMS_ITS | Encounter Summary ---
:1945 [place] [address] Care Team Providers Name Role Phone Lovely Vicente MD Primary Care Provider Encounter Details Date Type Department Care Team Description 08/04/2017 Notes Only Cardiac Surgery Makayla Wilson KELP GATHERER [facility] [place] [address] CARDIAC SURGERY [phone] [place], [place] [address] (Wo rk) Social History Tobacco [...] Dolan MD [facility] [address] [place], [place] [address] (Wo rk) 05/28/2022 Laboratory Appointment Lab 05/28/2022 Office Visit Cardiology Zulam Dolan MD [facility] [place] [address] [facility] [place] [address] 06/10/2022 Office Visit Dermatology Laura Scherer MD [facility] DR [address]DERMAT [facility] [place] [place] [address] (Wo rk) documented as of this encounter Visit Diagnoses Not on filedocumented in this encounter Care Teams Oxygen Therapist Relationship Specialty Start Date End Date Lovely Vicente MD PCP - General 04/16/[address] [place] [address] documented as of this encounter
--- OUTSIDE RECORDS SUMMARY | 2022-04-29 08:14 | XMS_ITS | Encounter Summary ---
:1945 Author Organization [facility] [place] [address] Care Team Providers Name Role Phone Lovely Vicente MD Primary Care Provider Encounter Details Date Type Department Care Team Description 08/03/2017 Telephone Pain Management at [place], [place] [address] Social History Tobacco Use Types Packs/Day [...] Management Center Preauthorization Request Patient: Don Fatima [id number] Fax received from [facility] requesting we obtain prior authorization for Lidocaine Patches prescribed by Barbra Soares APRN. RX insurance plan: [facility] insurance telephone: [phone] Patient ?? Diagnosis: right foot pain secondary to PVD and ischemia ?? Previous medications attempted: Tylenol, Tramadol, Dilaudid Authorization/Reference number: [id number], PBP Code 801 _x_ denied, provider and patient informed _x_ appeal initiated by provider, patient informed Angeles Rodrigez, RN documented in this encounter Plan of Treatment Upcoming Encounters Date Type Specialty Care Team Description 05/28/2022 Appointment Cardiology Zulma Dolan MD [facility] [place], [place] [address] (Wo rk) 05/28/2022 Laboratory Appointment Lab 05/28/2022 Office Visit Cardiology Zulma Dolan MD [facility] [place] [address] Liz Poole PA [facility] [place] [address] 06/10/2022 Office Visit Dermatology Laura Scherer MD [facility] [address] [place], [place] [address] (Wo rk) documented as of this encounter Visit Diagnoses Not on filedocumented in this encounter Care Teams Command Center Analyst Relationship Specialty Start Date End Date Lovely Vicente MD PCP - General 04/16/[address] [place] [address] documented as of this encounter
--- OUTSIDE RECORDS SUMMARY | 2022-04-29 08:14 | XMS_ITS | Encounter Summary ---
:1945 Author Organization [facility] [place] [address] Care Team Providers Name Role Phone Lovely Vicente MD Primary Care Provider Encounter Details Date Type Department Care Team Description 08/04/2017 Orders Only Cardiac Surgery Makayla Wilson APRN [facility] [place] [address] CARDIAC SURGERY [phone] [place], [place] [address] (Wo rk) Social History Tobacco [...] Zulma Dolan MD [facility] er [place], [place] [address] (Wo rk) 05/28/2022 Laboratory Appointment Lab 05/28/2022 Office Visit Cardiology Zulma Dolan MD [facility] [place] [address] Liz Poole PA [facility] [place] [address] 06/10/2022 Office Visit Dermatology Laura Scherer MD [facility] ER DR [address] [place], [place] [address] (Wo rk) documented as of this encounter Visit Diagnoses Not on filedocumented in this encounter Care Teams Mortgage Loan Interviewer Relationship Specialty Start Date End Date Lovely Vicente MD PCP - General 04/16/[address] [place] [address] documented as of this encounter
--- OUTSIDE RECORDS SUMMARY | 2022-04-29 08:14 | XMS_ITS | Encounter Summary ---
:1945 [place] [address] Care Team Providers Name Role Phone Lovely Vicente MD Primary Care Provider Encounter Details Date Type Department Care Team Description 08/03/2017 Hospital Encounter Radiology Library at [place], Tommy Mijares [facility] [place] [address] VASCULAR SURGERY [phone] [place], [place] [address] (Wo rk) Social History Tobacco [...] MD [facility] Dr [place], [place] [address] (Wo rk) 05/28/2022 Laboratory Appointment Lab 05/28/2022 Office Visit Cardiology Zulma Dolan MD [facility] [place] [address] Liz Poole PA [facility] [place] [address] 06/10/2022 Office Visit Dermatology Laura Scherer MD [facility] DR [address]MAT [place], [place] [address] (Wo rk) documented as [...] Address City/State/ZIP Code Phon e Number [place], [place] documented in this encounter Visit Diagnoses Diagnosis Pain Generalized pain documented in this encounter Care Teams Servomechanism Designer Relationship Specialty Start Date End Date Lovely Vicente MD PCP - General 04/16/[address] [place] [address] documented as of this encounter
--- OUTSIDE RECORDS SUMMARY | 2022-04-29 08:14 | XMS_ITS | Encounter Summary ---
:1945 Author Organization [facility] [place] [address] Care Team Providers Name Role Phone Lovely Vicente MD Primary Care Provider Reason for Visit Reason Comments Deep Vein Thrombosis Auth/Cert Specialty Diagnoses / Procedures Referred By Contact Refer red To Contact Diagnoses Critical lower limb ischemia CELLULITIS RT FOOT Procedures EMERGENCY Referral ID Status Reason Start Date Expiration Date Visits Requ ested Visits Authorized [id number] 1 1 Encounter Details Date Type Department Care Team Description 08/04/2017 Office Visit Vascular Surgery at [facility] itical lower limb [facility] ischemia [facility] [address] [place], [place] VASCULAR SURGERY [id number] [place] [address] [phone] Social History Tobacco Use Types Packs/Day Years [...] was discharged on Coumadin. ??He presented [place] [facility] [place] with mottled toes on the [...] MD [facility] [place] [address] Liz Poole PA [facility] [place] [address] 06/10/2022 Office Visit Dermatology Laura Scherer MD [facility] ER DR TEJA GR[address]DERMAT [place], [place] [address] (Wo rk) documented as of this encounter Visit Diagnoses Diagnosis Critical lower limb ischemia Unspecified circulatory system disorder documented in this encounter Care Teams Armature Winder Repair Helper Relationship Specialty Start Date End Date Lovely Vicente MD PCP - General 04/16/15 [facility] [address] [place], [place] [address] documented as of this encounter
--- OUTSIDE RECORDS SUMMARY | 2022-04-29 08:14 | XMS_ITS | Encounter Summary ---
:1945 [place] [address] Care Team Providers Name Role Phone Lovely Vicente MD Primary Care Provider Encounter Details Date Type Department Care Team Description 07/29/2017 Telephone Pain Aurelia Crawford MD [facility] [place] [address] PAIN CLINIC [phone] [place], [place] [address] (Wo rk) Social History Tobacco [...] Dolan MD [facility] Dr [place], [place] [address] (Wo rk) 05/28/2022 Laboratory Appointment Lab 05/28/2022 Office Visit Cardiology Zulma Dolan MD [facility] [place] [address] Liz Poole PA [facility] [place] [address] 06/10/2022 Office Visit Dermatology Laura Scherer MD [facility] [address] [place], [place] [address] (Wo rk) documented as of this encounter Visit Diagnoses Not on filedocumented in this encounter Care Teams Hose Seamer Relationship Specialty Start Date End Date Lovely Vicente MD PCP - General 04/16/[address] [place] [address] [address] [place] [address] documented as of this encounter
--- OUTSIDE RECORDS SUMMARY | 2022-04-29 08:14 | XMS_ITS | Encounter Summary ---
:1945 Author Organization [place] [address] Care Team Providers Name Role Phone Lovely Vicente MD Primary Care Provider Reason for Visit Auth/Cert Specialty Diagnoses / Procedures Referred By Contact Refer red To Contact Diagnoses Critical lower limb ischemia CELLULITIS RT FOOT Procedures EMERGENCY Referral ID Status Reason Start Date Expiration Date Visits Requ ested Visits Authorized [id number] 1 1 Encounter Details Date Type Department Care Team Description 08/06/2017 Hospital En[facility] [address] Social History Tobacco Use Types Packs/Day [...] Dolan MD [facility] [address] [place], [place] [address] (Wo rk) 05/28/2022 Laboratory Appointment Lab 05/28/2022 Office Visit Cardiology Zulma Dolan MD [facility] [place] [address] Liz Poole PA [facility] [place] [address] 06/10/2022 Office Visit Dermatology Laura Scherer MD [facility] DR [address]MAT [place], [place] [address] (Wo rk) documented as of this encounter Visit Diagnoses Not on filedocumented in this encounter Care Teams Rv Repair Technician Relationship Specialty Start Date End Date Lovely Vicente MD PCP - General 04/16/[address] [place] [address] documented as of this encounter
--- OUTSIDE RECORDS SUMMARY | 2022-04-29 08:14 | XMS_ITS | Encounter Summary ---
:1945 [place] [address] Care Team Providers Name Role Phone Lovely Vicente MD Primary Care Provider Encounter Details Date Type Department Care Team Description 07/29/2017 Hospital Encounter Vascular Lab at Critic monica Huber lower limb [facility] [place] [address] Social History Tobacco Use Types Packs/Day Years [...] Zulma Dolan MD [facility] [place], [place] [address] (Wo rk) 05/28/2022 Laboratory Appointment Lab 05/28/2022 Office Visit Cardiology Zulma Dolan MD [facility] [place] [address] [facility] [place] [address] 06/10/2022 Office Visit Dermatology Laura Scherer MD [facility] DR [address]MAT [place], [place] [address] (Wo rk) documented as of this encounter Visit Diagnoses Diagnosis Critical lower limb ischemia Unspecified circulatory system disorder documented in this encounter Care Teams Press Puller Relationship Specialty Start Date End Date Lovely Vicente MD PCP - General 04/16/[address] [place] [address] documented as of this encounter
--- OUTSIDE RECORDS SUMMARY | 2022-04-29 08:14 | XMS_ITS | Encounter Summary ---
:1945 Author Organization [facility] [place] [address] Care Team Providers Name Role Phone Lovely Vicente MD Primary Care Provider Reason for Visit Auth/Cert Specialty Diagnoses / Procedures Referred By Contact Refer red To Contact Diagnoses Critical lower limb ischemia CELLULITIS RT FOOT Procedures EMERGENCY Referral ID Status Reason Start Date Expiration Date Visits Requ ested Visits Authorized [id number] 1 Encounter Details Date Type Department Care Team Description 08/04/2017 Laboratory Appointment Lab 3L [facility] [place] [phone] Social History Tobacco Use Types Packs/Day [...] MD [facility] [place] [address] Liz Poole PA [facility] [place] [address] 06/10/2022 Office Visit Dermatology Laura Scherer MD [facility] [address] [place], [place] [address] (Wo rk) documented as of this encounter Visit Diagnoses Not on filedocumented in this encounter Care Teams Can Sterilizer Relationship Specialty Start Date End Date Lovely Vicente MD PCP - General 04/16/15 [facility] [address] [place], [place] [id number] documented as of this encounter
--- OUTSIDE RECORDS SUMMARY | 2022-04-29 08:14 | XMS_ITS | Encounter Summary ---
:1945 Author Organization [facility] [place] [address] Care Team Providers Name Role Phone Lovely Vicente MD Primary Care Provider Reason for Visit Auth/Cert Specialty Diagnoses / Procedures Referred By Contact Refer red To Contact Diagnoses Critical lower limb ischemia CELLULITIS RT FOOT Procedures EMERGENCY Referral ID Status Reason Start Date Expiration Date Visits Requ ested Visits Authorized [id number] 1 1 Encounter Details Date Type Department Care Team Description 08/09/2017 Surgery Main Operating Room Yonathna Smith AM PUTATION, Mary Hitchcock MD TRANSMETATARSAL ([facility] 12.71) [facility] [address] [place]idd[place] [address] [place] [address] [phone] Social History Tobacco Use Types Packs/Day Years [...] 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 Patient [...] Dorsalis Pedis (Ankle) Artery ?132 ? 0.94 ??Chaffee-Biphasic ? Posterior Tibial (Ankle) Artery ??154 ? 1.10 ??Chaffee-Biphasic ? Fourth Toe ? 67 ?0.48 ?? [...] For any problems or questions please call [phone] ZELDA Smith, construction driller Nurse Clinician For issues on weeknights after 5pm and weekends please call [phone] and ask for the Vascular Fellow control technician. General Instructions None Future Appointments and Orders Future Appointments Provider Department Dept Phone 08/26/2017 4:00 PM Aurelia Rivera PA Vascular Surgery at [place] [phone] 09/07/2017 3:00 PM LAB, THREE L Lab 3L [facility] [phone] 09/07/2017 4:00 PM Luz Prescott MD Endocrinology at [place] [phone] 09/09/2017 8:00 AM Barbra Soares APRN Pain Management at [place] [phone] Please bring a list of your current [...] For any problems or questions please call [phone] ZELDA Smith, construction driller Nurse Clinician For issues on weeknights after 5pm and weekends please call [phone] and ask for the Vascular Fellow control technician. documented in this encounter Medications at [...] Discharge Note Patient Destination: [facility] ([facility]) [address] [id number] Transportation: with (at bedside) Time of Discharge: by 12 noon Level of Care: swing Patient Aware: yes Family Notified: yes Md to call report to: Yissel Quintero BOOSTER PUMP OILER already called RN to call report to: [phone] Shirin Wolf Office of Care Management Pager [phone] Shirin Wolf RN - 08/16/2017 10:50 AM EST [facility] has offered pt swing bed. Pt and accept bed. will transport via car. BOOSTER PUMP OILER Yissel Quintero aware; d/c paperwork will be completed by 12 noon. [facility] requests pt arrival by 1400 today; BOOSTER PUMP OILER, RN, and family aware. BOOSTER PUMP OILER called [facility] and was told that they prefer pt to arrive with wound vac dressing applied but clamped. BOOSTER PUMP OILER applied new wound vac dressing. RN has [facility] number to call report. PASSR completed; BOOSTER PUMP OILER paged to request provider signature in highlighted space. Indigo from [facility] notified via email that home wound vac now cancelled; [facility] has picked up from room and order cancelled. Packet started and provided to community living specialist. Medicare important message explained to patient, patient signed. Copy provided to patient and signature page to OCM for inclusion in pt EMR. L Radha Powers Yoselin - 08/16/2017 10:34 AM EST Office of Care Management/Telecommunications Line Mechanic Patient Name: Gregory Hoang : 1945 Patient has been offered a swing bed at [facility]. The patient will be transported by private transportation. No MD to MD report necessary Please call Nursing Report to [phone], ask for cdl program coordinator. Info to accompany patient: Narcotic Prescriptions Copies of Medication Administration Records and IV sheets for past 10 days. Plan: Telecommunications Line Mechanic will be available to the patient and Interventional Pain Physician-RN and/or Claim Clerk for further assistance. Patient will be discharged to: [address] [id number] Radha Powers, Telecommunications Line Mechanic Mira Truong, VAMSI - 08/15/2017 10:05 PM EST [address] Flores to ask if he wanted to hold metoprolol dose. BP 95/58. OK to hold this dose Courtney Brito - 08/15/2017 3:26 PM EST Office of Care Management(OCM)/Telecommunications Line Mechanic(RS)/ D/C Planning re : Patient is [...] status. 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 Vac in place. [...] patient's referral to: [facility] PHONE: [phone] FAX: [phone] CM spoke with RS who said that [...] rehab. Await recommendations from PT. Covering pager #[phone]. 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 Coping Machine Operator Kaitlin Saha, RN Pager #[phone] Payam Rosales - 08/13/2017 2:37 PM EST Med Specialist Encounter Note Patient Name: Gregory Hoang : [id number] MR#: [id number] Admit Date: 08/06/2017 1:41 PM Hospital Day 7 days Narrative: Visited to introduce and assess acceptance of Med Specialist services. Pt was awake, alert, oriented and in chair and family was there. Assessment:Patient coping positively with stresses of illness/hospitalization at this time. Pt says that he is hoping to get better and his family was there. Pt says that he has family care and supportand taking one day at time. Intervention and Outcome: Provided emotional support and encouraging presence. 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 A letter describing our affiliations was reviewed with them and theywere educated about their right to choose where referrals are placed. Patient requests referral to [facility] [employer] PHONE: [phone] FAX: [phone]. And Home NPWT (Negative Pressure Wound Therapy) aka wound vac device made available to pt. Serial # confirmed. Reviewed [facility] Proof of Delivery/Assignment of Benefits Statement(POD/AOB) Form w patient or authorized agent signing on behalf of patient. Copy of POD/AOB provided to pt and other copy faxed to [employer] @ fax# [phone] Expected date of discharge: 08/12/2017. 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 Heparin gtt continues to run. Pt [...] : 1945 AGE 72 y.o. 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 Unsuccessful draw attempt, another chief lifestyle officer will come [facility] to collect blood for PTT test. 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 Vascular resident control technician and will forward result to the team prior to rounds. 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 Patient [...] blue toes with CTA showing R BARGE LOADER pseudoaneurysm (now thrombosed) and occluded ATs bilaterally. [...] 5. Completion RLE angiogram 6. L BARGE LOADER angiogram 7. 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 - L BARGE LOADER angriogram demonstrated: High femoral bifurcation over the proximal half of the femoral head. L BARGE LOADER access in the distal L BARGE LOADER. - Closure device: Mynx Technical Procedure: The [...] for a 45cm 5F Destination. V18 and [place] and QuickCross catheters were used to select [...] A stationed picture of the L BARGE LOADER was performed as the patient was noted to have a very high bifurcation. Access appeared in the distal R BARGE LOADER. Closure and sheath removal was performed with [...] PM EST 1440 report called to 5 [place] nurse Tessa RN documented in this encounter [...] sit/sit to supine -- Bed Mobility Goal, [place] Level independent -- Bed Mobility Goal, Date [...] days -- Transfer Training Goal, Activity Type lnf-uk-cecff/dmsxx-md-tae -- Transfer Train Goal, [place] Level conditional independence -- Transfer Train Goal, [...] call cabello within reach, Hourly rounding by RN/ASSEMBLER PLASTIC BOAT. Bed alarm / Chair alarm. Patient-specific fall [...] Operative Note Patient Name: Gregory Hoang : [id number] MR#: [id number] Case Date: 08/09/2017 Surgeon: Surgeon(s) and Role: [...] 5. Completion RLE angiogram 6. L BARGE LOADER angiogram 7. Mynx closure Precautions/Restrictions: fall, sternal [...] other (see comments) (or swing bed) Pager: [phone] BASSAM ELIAS, PT 08/14/2017 Inpatient Physical Therapy [...] to Achieve by discharge Gait Training Goal, [place] Level conditional independence;set up required Gait Training [...] except for [facility]. CM spoke with [facility] CM Drea Sandhu, VAMSI who said that they do not anticipate any beds over the weekend. Reviewed with patient/ that they need to be aware that patient will need to take the first bed offered at the facilities that they make referrals to. Their choices are: 1- [facility] PHONE: [phone] FAX: [phone] 2- [facility] ([facility]) [address] [place] [address] 3- [facility]) [address] [place] [address] I have discussed Medicare/Private Insurance reimbursement guidelines for ambulance transport. Discussed transportation options and patient and would like to have transport him. KANWAL said that team would need to talk with Dr. Smtih to see if patient would need his extremity elevated for the duration of the transport and to confirm that wound vac could be removed for the duration of the transport. Will ask RS to upload referrals to facilities and will ask RS/CM on Wednesday to follow-up. Covering pager #[phone] for today. Plan of Care - Henrique [...] additional findings of pseudoaneurysm on R BARGE LOADER and bilateral anterior tibial artery occlusions. Was [...] an outpatient once discharged. Have patient call [phone] to set up an appointment. Follow-up: Dermatology will sign-off for now. Please do not hesitate to contact us if you have any questions orconcerns. Impression and Recommendations discussed with primary team on 08/13/2017. Karo Henderson MD Resident in Dermatology Section of Dermatology, Department of Surgery [facility] Pager [phone] Patient seen and evaluated with staff Adoption Services Manager: Halima Cordero MD Section of Dermatology [facility] Level of Resident Supervision: Direct Supervision [...] Outcome: Ongoing (Interventions Implemented as Appropriate) 08/12/17 6666 Coping/Psychosocial Plan Of Care Reviewed With patient;spouse [...] 5. Completion RLE angiogram 6. L BARGE LOADER angiogram 7. Mynx closure Active Non-Hospital Problems [...] home with home health ([facility] PT&OT) Pager: [phone] YASIR TELLO OT 08/12/2017 Occupational Therapy Rehabilitation [...] 5. Completion RLE angiogram 6. L BARGE LOADER angiogram 7. Mynx closure Past Medical History: [...] with 24/7 assistance and maximal services) Pager: [phone] NICHOLAS MORA, PT 08/12/2017 Physical Therapy Rehabilitation [...] sit/sit to supine -- Bed Mobility Goal, [place] Level independent -- Bed Mobility Goal, Outcome Achieved -- goal ongoing Goal: Gait Training Goal Stand Alone Therapy Goal Outcome: Ongoing (Interventions Implemented as Appropriate) 08/11/17 1310 08/12/17 1510 Gait Training Goal Gait Training Goal, Date Established 08/11/17 -- Gait Training Goal, Time to Achieve 5 - 7 days -- Gait Training Goal, [place] Level conditional independence -- Gait Training Goal, [...] days -- Transfer Training Goal, Activity Type wih-iy-haugs/bjgjw-ml-qip -- Transfer Train Goal, [place] Level conditional independence -- Transfer Training Goal, [...] Operative Note Patient Name: Gregory Hoang : [id number] MR#: [id number] Case Date: 08/11/2017 Surgeon: Surgeon(s) and Role: [...] 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 Completion RLE angiogram 6. L BARGE LOADER angiogram 7. Mynx closure He is very [...] Anticipated Discharge Disposition: inpatient rehabilitation facility Pager: [phone] LAWRENCE GONZALEZ, PT 08/11/2017 Physical Therapy Rehabilitation [...] to sit/sit to supine Bed Mobility Goal, [place] Level independent Goal: Gait Training Goal Stand Alone Therapy Goal Outcome: Ongoing (Interventions Implemented as Appropriate) 08/11/17 1310 Gait Training Goal Gait Training Goal, Date Established 08/11/17 Gait Training Goal, Time to Achieve 5 - 7 days Gait Training Goal, [place] Level conditional independence Gait Training Goal, Assist [...] 7 days Transfer Training Goal, Activity Type frr-bg-gkliy/qbibj-fr-hei Transfer Train Goal, [place] Level conditional independence Plan of David DelloAnnetta [...] call cabello within reach, Hourly rounding by RN/ASSEMBLER PLASTIC BOAT. Bed alarm / Chair alarm. ? Patient-specific [...] Planning: on file Kisha Hoang [facility] [phone] Current Coping/Education/Information Needs: pt and spouse state [...] Health/Prescription Coverage: Primary Insurance: MEDICARE Secondary Insurance: [employer] [place] Prescription Coverage: See above Preferred Pharmacy: [facility] Other: N/A Primary Care Provider: Lovely Vicente MD [phone] Patient/Caregiver Goals of Treatment: Patient plans to [...] of care planning. Kaitlin Saha RN Pager: [phone] Plan of Care - Melba Jaramillo RN [...] Overview Goal: Plan of Care Review 08/08/17 2064 Coping/Psychosocial Plan Of Care Reviewed With patient [...] call cabello within reach, Hourly rounding by RN/ASSEMBLER PLASTIC BOAT. Bed alarm / Chair alarm. Patient-specific fall prevention interventions for sensory deficits provided, if applicable: [X] Yes CPG GOAL OUTCOME EVALUATION: Goal: Fall Prevention-Safe Patient Handling Outcome: Ongoing (Interventions Implemented as Appropriate) 08/06/17 1700 08/06/17199908/07/17 9924 Positioning Body Position -- up in chair [...] at bedside and MD TEAM Carrying pager [phone] contacted (via Radio page) and notified of [...] Cardiology Zulma Dolan MD [facility] [place], [place] [address] (Wo rk) 05/28/2022 Laboratory Appointment Lab 05/28/2022 Office Visit Cardiology Zulma Dolan MD [facility] [place] [address] Liz Poole PA [facility] [place] [address] 06/10/2022 Office Visit Dermatology Laura Scherer MD [facility] [address] [place], [place] [address] (Wo rk) documented as of [...] section. TYPE AND SCREEN Routine 08/09/2017 1:10 ([facility]ANDA) AM EST BASIC METABOLIC PANEL Routine 08/09/2017 [...] 160 65 - 199 [place] mg/dL [facility] Comment: Supplemental ranges: <140 mg/dL before meals <180 mg/dL all other times of the day Specimen Anatomical Collection Method Collection Time Receive d Time (Source) Location / / Volume Laterality Blood specimen 08/16/2017 7:28 AM 018 7:28 (specimen) EST AM EST Yonathan Smith MD POINT OF CARE TEST ORDERABLE S Performing Organization Address City/State/[place] [address] (ABNORMAL) Differential, Automated (08/16/2017 5:08 AM EST) [facility] Method Time Signature Neutrophils % 73.9 % [facility] Neutr Abs (ANC) 5.37 1.70 - [facility] 6.10 [facility] x10(3)/[facility] LABORATORY Lymphocytes % 10.1 % [facility] Lymphocytes Abs 0.7 (L) 0.9 - 3.2 [facility] x10(3)/[facility] LABORATORY Monocytes % 10.1 % [facility] Monocyte Abs 0.7 0.3 - 0.9 [facility] x10(3)/[facility] LABORATORY Eosinophils % 5.1 % [facility] Eosinophils Abs 0.4 0.0 - 0.4 [facility] x10(3)/[facility] LABORATORY Basophils % 0.4 % [facility] Basophils Abs 0.0 0.0 - 0.1 [facility] x10(3)/[facility] LABORATORY Immature Gran % 0.40 % [...] 0.00 - 0.04 x10(3)/[facility] LABORATORY Specimen Anatomical Collection Method Collection Time Receive d Time (Source) Location / / Volume Laterality Blood specimen 08/16/2017 5:08 AM 018 5:20 (specimen) EST AM EST Resulting Agency Comment Spec In Lab Yonathan Smith MD HEMATOLOGY ORDERABLES Performing Organization Address City/State/[place] [address] (ABNORMAL) Hemogram (08/16/2017 5:08 AM EST) Analysis Performed At Patho logist Time Signature WBC 7.3 4.0 - 9.5 [facility] x10(3)/[facility] LABORATORY RBC 3.36 (L) 4.58 - [facility] 5.54 [facility] x10(6)/[facility] LABORATORY Hemoglobin 9.7 (L) 13.7 - [facility] 16.5 gm/dL [facility] Hematocrit 30.3 (L) 40.5 - [facility] 48.5 % [facility] MCV 90.2 82.9 - [facility] 93.1 [facility]ORAT[facility] MCH 28.9 27.5 - [facility] 32.1 pg [facility] MCHC 32.0 32.0 - [facility] 35.7 gm/dL [facility] Platelets 282 145 - 357 [facility] x10(3)/[facility] LABORATORY RDWSD 53.9 (H) 36.0 - [facility] 45.0 [facility] RDWCV 16.5 (H) 11.4 - [facility] 13.8 % [facility] MPV 9.0 7.6 - 12.9 [facility] LABORATORY nRBC % Auto 0.0 % [facility] nRBC Abs Auto 0.000 0.000 - [facility] 0.000 [facility] x10(3)/[facility] LABORATORY Specimen Anatomical Collection Method Collection Time Receive d Time (Source) Location / / Volume Laterality Blood specimen 08/16/2017 5:08 AM 018 5:20 (specimen) EST AM EST Resulting Agency Comment Spec In Lab Yonathan Smith MD HEMATOLOGY ORDERABLES Performing Organization Address City/State/[place] [address] (ABNORMAL) Basic Metabolic Panel (non-fasting) (08/16/2017 5:08 AM EST) P athologist Signature Glucose Lvl 141 65 - 199 [facility] mg/dL [facility] Comment: Diabetes: [...] or in patients with acute kidney failure. http://[employer]/DHnkdep http://[employer]/DHMCnkf Specimen Anatomical Collection Method Collection Time Receive d Time (Source) Location / / Volume Laterality Blood specimen 08/16/2017 5:08 AM 018 5:20 (specimen) EST AM EST Resulting Agency Comment Spec In Lab Yonathan Smith MD CHEMISTRY ORDERABLES Performing Organization Address City/State/[place] [address] (ABNORMAL) Prothrombin Time (08/16/2017 [...] Smith MD HEMATOLOGY ORDERABLES Performing Organization Address City/[facility]/ZIP Code Phon e Number [address] POCT Glucose (08/16/2017 4:09 AM EST) athologist Signature POC Glucose 147 65 - 199 [facility] mg/dL [facility] Comment: Supplemental ranges: <140 mg/dL before meals <180 mg/dL all other times of the day Specimen Anatomical Collection Method Collection Time Receive d Time (Source) Location / / Volume Laterality Blood specimen 08/16/2017 4:09 AM 018 4:09 (specimen) EST AM EST Yonathan Smith MD POINT OF CARE TEST ORDERABLE S Performing Organization Address City/[facility]/ZIP Code Phon e Number [address] POCT Glucose (08/15/2017 11:56 PM EST) athologist Signature POC Glucose 176 65 - 199 [place] mg/dL [facility] Comment: Supplemental ranges: <140 mg/dL before meals <180 mg/dL all other times of the day Specimen Anatomical Collection Method Collection Time Receive d Time (Source) Location / / Volume Laterality Blood specimen 08/15/2017 11:56 8 (specimen) PM EST 11:56 PM EST Yonathan Smith MD POINT OF CARE TEST ORDERABLE S Performing Organization Address City/[facility]/ZIP Code Phon e Number [address] POCT Glucose (08/15/2017 8:05 PM EST) athologist Signature POC Glucose 136 65 - 199 [place] mg/dL [facility] Comment: Supplemental ranges: <140 mg/dL before meals <180 mg/dL all other times of the day Specimen Anatomical Collection Method Collection Time Receive d Time (Source) Location / / Volume Laterality Blood specimen 08/15/2017 8:05 PM 018 8:05 (specimen) EST PM EST Yonathan Smith MD POINT OF CARE TEST ORDERABLE S Performing Organization Address City/State/[place] [address] (ABNORMAL) POCT Glucose (08/15/2017 4:50 PM EST) athologist Signature POC Glucose 232 (H) 65 - 199 [place] mg/dL [facility] Comment: Supplemental ranges: <140 mg/dL before meals <180 mg/dL all other times of the day Specimen Anatomical Collection Method Collection Time Receive d Time (Source) Location / / Volume Laterality Blood specimen 08/15/2017 4:50 PM 018 4:50 (specimen) EST PM EST Yonathan Smith MD POINT OF CARE TEST ORDERABLE S Performing Organization Address City/State/[place] [address] POCT Glucose (08/15/2017 12:04 PM EST) athologist Signature POC Glucose 135 65 - 199 [place] mg/dL [facility] Comment: Supplemental ranges: <140 mg/dL before meals <180 mg/dL all other times of the day Specimen Anatomical Collection Method Collection Time Receive d Time (Source) Location / / Volume Laterality Blood specimen 08/15/2017 12:04 8 (specimen) PM EST 12:04 PM EST Yonathan Smith MD POINT OF CARE TEST ORDERABLE S Performing Organization Address City/State/[place] [address] POCT Glucose (08/15/2017 7:36 AM EST) athologist Signature POC Glucose 124 65 - 199 [facility] mg/dL [facility] Comment: Supplemental ranges: <140 mg/dL before meals <180 mg/dL all other times of the day Specimen Anatomical Collection Method Collection Time Receive d Time (Source) Location / / Volume Laterality Blood specimen 08/15/2017 7:36 AM 018 7:36 (specimen) EST AM EST Yonathan Smith MD POINT OF CARE TEST ORDERABLE S Performing Organization Address City/State/[place] [address] (ABNORMAL) Differential, Automated (08/15/2017 6:22 AM EST) [facility] Method Time Signature Neutrophils % 76.1 % [facility] Neutr Abs (ANC) 6.62 (H) 1.70 - [facility] 6.10 [facility] x10(3)/[facility] LABORATORY Lymphocytes % 9.3 % [facility] Lymphocytes Abs 0.8 (L) 0.9 - 3.2 [facility] x10(3)/[facility] LABORATORY Monocytes % 9.4 % [facility] Monocyte Abs 0.8 0.3 - 0.9 [facility] x10(3)/[facility] LABORATORY Eosinophils % 4.0 % [facility] Eosinophils Abs 0.4 0.0 - 0.4 [facility] x10(3)/[facility] LABORATORY Basophils % 0.6 % [facility] Basophils Abs 0.0 0.0 - 0.1 [facility] x10(3)/[facility] LABORATORY Immature [...] Smith MD HEMATOLOGY ORDERABLES Performing Organization Address City/[facility]/ZIP Code Phon e Number [address] (ABNORMAL) Hemogram (08/15/2017 6:22 AM EST) Analysis Performed At Patho logist Time Signature WBC 8.7 4.0 - 9.5 [facility] LABORATORY RBC 3.21 (L) 4.58 - [facility] RYAN 5.54 [facility] x10(6)/[facility] LABORATORY Hemoglobin 9.1 (L) 13.7 - [facility] 16.5 gm/dL [facility] Hematocrit 29.0 (L) 40.5 - [facility] 48.5 % [facility] MCV 90.3 82.9 - [facility] 93.1 [facility] LABORATORY MCH 28.3 27.5 - [facility] 32.1 pg [facility] MCHC 31.4 (L) 32.0 - [facility] 35.7 gm/dL [facility] Platelets 254 145 - 357 [facility] x10(3)/[facility] LABORATORY RDWSD 53.9 (H) 36.0 - [facility] 45.0 [facility] LABORATORY RDWCV 16.3 (H) 11.4 - [facility] 13.8 % [facility] MPV 8.8 7.6 - 12.9 [facility] LABORATORY nRBC % Auto 0.0 % [facility] nRBC Abs Auto 0.000 0.000 - [facility] 0.000 [facility] x10(3)/[facility] LABORATORY Specimen Anatomical Collection Method Collection Time Receive d Time (Source) Location / / Volume Laterality Blood specimen 08/15/2017 6:22 AM 018 6:33 (specimen) EST AM EST Resulting Agency Comment Spec In Lab Yonathan Smith MD HEMATOLOGY ORDERABLES Performing Organization Address City/State/ZIP Code Phon e Number [facility] [place] [address] (ABNORMAL) Basic Metabolic Panel (non-fasting) (08/15/2017 6:22 AM EST) P athologist Signature Glucose Lvl 118 65 - 199 [facility] mg/dL [facility] Comment: Diabetes: [...] or in patients with acute kidney failure. [email or web address] Specimen Anatomical Collection Method Collection Time Receive d Time (Source) Location / / Volume Laterality Blood specimen 08/15/2017 6:22 AM 018 6:33 (specimen) EST AM EST Resulting Agency Comment Spec In Lab Yonathan Smith MD CHEMISTRY ORDERABLES Performing Organization Address City/State/ZIP Code Phon e Number [address] (ABNORMAL) Prothrombin Time (08/15/2017 [...] Address City/State/ZIP Code Phon e Number [address] POCT Glucose (08/15/2017 4:33 AM EST) athologist Signature POC Glucose 164 65 - 199 [facility] Comment: Supplemental ranges: <140 mg/dL before meals <180 mg/dL all other times of the day Specimen Anatomical Collection Method Collection Time Receive d Time (Source) Location / / Volume Laterality Blood specimen 08/15/2017 4:33 AM 018 4:33 (specimen) EST AM EST Yonathan Smith MD POINT OF CARE TEST ORDERABLE S Performing Organization Address City/State/ZIP Code Phon e Number [address] POCT Glucose (08/15/2017 12:12 AM EST) athologist Signature POC Glucose 89 65 - 199 [facility] mg/dL [facility] Comment: Supplemental ranges: <140 mg/dL before meals <180 mg/dL all other times of the day Specimen Anatomical Collection Method Collection Time Receive d Time (Source) Location / / Volume Laterality Blood specimen 08/15/2017 12:12 8 (specimen) AM EST 12:12 AM EST Yonathan Smith MD POINT OF CARE TEST ORDERABLE S Performing Organization Address City/State/ZIP Code Phon e Number [address] (ABNORMAL) POCT Glucose (08/14/2017 8:07 PM EST) athologist Signature POC Glucose 204 (H) 65 - 199 [facility] mg/dL [facility] Comment: Supplemental ranges: <140 mg/dL before meals <180 mg/dL all other times of the day Specimen Anatomical Collection Method Collection Time Receive d Time (Source) Location / / Volume Laterality Blood specimen 08/14/2017 8:07 PM 018 8:07 (specimen) EST PM EST Yonathan Smith MD POINT OF CARE TEST ORDERABLE S Performing Organization Address City/[facility]/[place] [address] POCT Glucose (08/14/2017 5:11 PM EST) athologist Signature POC Glucose 174 65 - 199 [facility] ZHAORY[facility] mg/dL [facility] Comment: Supplemental ranges: <140 mg/dL before meals <180 mg/dL all other times of the day Specimen Anatomical Collection Method Collection Time Receive d Time (Source) Location / / Volume Laterality Blood specimen 08/14/2017 5:11 PM 018 5:11 (specimen) EST PM EST Yonathan Smith MD POINT OF CARE TEST ORDERABLE S Performing Organization Address City/State/[place] [address] POCT Glucose (08/14/2017 12:10 PM EST) athologist Signature POC Glucose 141 65 - 199 [facility] mg/dL [facility] Comment: Supplemental ranges: <140 mg/dL before meals <180 mg/dL all other times of the day Specimen Anatomical Collection Method Collection Time Receive d Time (Source) Location / / Volume Laterality Blood specimen 08/14/2017 12:10 8 (specimen) PM EST 12:10 PM EST Yonathan Smith MD POINT OF CARE TEST ORDERABLE S Performing Organization Address City/State/ZIP Code Phon e Number [address] POCT Glucose (08/14/2017 8:07 AM EST) P athologist Signature POC Glucose 158 65 - 199 [facility] mg/dL [facility] Comment: Supplemental ranges: <140 mg/dL before meals <180 mg/dL all other times of the day Specimen Anatomical Collection Method Collection Time Receive d Time (Source) Location / / Volume Laterality Blood specimen 08/14/2017 8:07 AM 018 8:07 (specimen) EST AM EST Yonathan Smith MD POINT OF CARE TEST ORDERABLE S Performing Organization Address City/State/ZIP Code Phon e Number [address] (ABNORMAL) Differential, Automated (08/14/2017 4:52 AM EST) Patholo gist Method Time Signature Neutrophils % 78.6 % [facility] Neutr Abs (ANC) 7.70 (H) 1.70 - [facility] 6.10 [facility] x10(3)/[facility] LABORATORY Lymphocytes % 7.8 % [facility] Lymphocytes Abs 0.8 (L) 0.9 - 3.2 [facility] x10(3)/[facility] LABORATORY Monocytes % 8.8 % [facility] Monocyte Abs 0.9 0.3 - 0.9 [facility] x10(3)/[facility] LABORATORY Eosinophils % 4.0 % [facility] Eosinophils Abs 0.4 0.0 - 0.4 [facility] x10(3)/[facility] LABORATORY Basophils % 0.5 % [facility] Basophils Abs 0.0 0.0 - 0.1 [facility] x10(3)/[facility] LABORATORY Immature [...] 0.00 - 0.04 x10(3)/[facility] LABORATORY Specimen Anatomical Collection Method Collection Time Receive d Time (Source) Location / / Volume Laterality Blood specimen 08/14/2017 4:52 AM 018 5:08 (specimen) EST AM EST Resulting Agency Comment Spec In Lab Yonathan Smith MD HEMATOLOGY ORDERABLES Performing Organization Address City/State/[place] [address] (ABNORMAL) Hemogram (08/14/2017 4:52 AM EST) Analysis Performed At Patho logist Time Signature WBC 9.8 (H) 4.0 - 9.5 [facility] x10(3)/[facility] LABORATORY RBC 3.32 (L) 4.58 - [facility] 5.54 [facility] x10(6)/[facility] LABORATORY Hemoglobin 9.5 (L) 13.7 - [facility] 16.5 gm/dL [facility] Hematocrit 30.3 (L) 40.5 - [facility] 48.5 % [facility] MCV 91.3 82.9 - [facility] 93.1 [facility] LABORATORY MCH 28.6 27.5 - [facility] 32.1 pg [facility] MCHC 31.4 (L) 32.0 - [facility] 35.7 gm/dL [facility] Platelets 263 145 - 357 [facility] x10(3)/[facility] LABORATORY RDWSD 54.8 (H) 36.0 - [facility] 45.0 [facility] LABORATORY RDWCV 16.5 (H) 11.4 - [facility] 13.8 % [facility] MPV 9.1 7.6 - 12.9 [facility] LABORATORY nRBC % Auto 0.0 % [facility] nRBC Abs Auto 0.000 0.000 - [facility] 0.000 [facility] x10(3)/[facility] LABORATORY Specimen Anatomical Collection Method Collection Time Receive d Time (Source) Location / / Volume Laterality Blood specimen 08/14/2017 4:52 AM 018 5:08 (specimen) EST AM EST Resulting Agency Comment Spec In Lab Yonathan Smith MD HEMATOLOGY ORDERABLES Performing Organization Address City/[facility]/[place] [address] (ABNORMAL) Prothrombin Time (08/14/2017 [...] Smith MD HEMATOLOGY ORDERABLES Performing Organization Address City/[facility]/[place] [address] (ABNORMAL) Basic Metabolic Panel (non-fasting) (08/14/2017 4:52 AM EST) athologist Signature Glucose Lvl 135 65 - 199 [facility] mg/dL [facility] Comment: Diabetes: [...] or in patients with acute kidney failure. [email or web address] Specimen Anatomical Collection Method Collection Time Receive d Time (Source) Location / / Volume Laterality Blood specimen 08/14/2017 4:52 AM 018 5:08 (specimen) EST AM EST Resulting Agency Comment Spec In Lab Yonathan Smith MD CHEMISTRY ORDERABLES Performing Organization Address City/[facility]/ZIP Code Phon e Number [address] POCT Glucose (08/14/2017 3:56 AM EST) P athologist Signature POC Glucose 135 65 - 199 [facility] mg/dL [facility] Comment: Supplemental ranges: <140 mg/dL before meals <180 mg/dL all other times of the day Specimen Anatomical Collection Method Collection Time Receive d Time (Source) Location / / Volume Laterality Blood specimen 08/14/2017 3:56 AM 018 3:56 (specimen) EST AM EST Yonathan Smith MD POINT OF CARE TEST ORDERABLE S Performing Organization Address City/[facility]/[place] [address] POCT Glucose (08/13/2017 11:13 PM EST) athologist Signature POC Glucose 118 65 - 199 [facility] mg/dL [facility] Comment: Supplemental ranges: <140 mg/dL before meals <180 mg/dL all other times of the day Specimen Anatomical Collection Method Collection Time Receive d Time (Source) Location / / Volume Laterality Blood specimen 08/13/2017 11:13 8 (specimen) PM EST 11:13 PM EST Yonathan Smith MD POINT OF CARE TEST ORDERABLE S Performing Organization Address City/State/[place] [address] (ABNORMAL) POCT Glucose (08/13/2017 8:08 PM EST) athologist Signature POC Glucose 204 (H) 65 - 199 [facility] mg/dL [facility] Comment: Supplemental ranges: <140 mg/dL before meals <180 mg/dL all other times of the day Specimen Anatomical Collection Method Collection Time Receive d Time (Source) Location / / Volume Laterality Blood specimen 08/13/2017 8:08 PM 018 8:08 (specimen) EST PM EST Yonathan Smith MD POINT OF CARE TEST ORDERABLE S Performing Organization Address City/State/[place] [address] POCT Glucose (08/13/2017 4:02 PM EST) athologist Signature POC Glucose 145 65 - 199 [facility] mg/dL [facility] Comment: Supplemental ranges: <140 mg/dL before meals <180 mg/dL all other times of the day Specimen Anatomical Collection Method Collection Time Receive d Time (Source) Location / / Volume Laterality Blood specimen 08/13/2017 4:02 PM 018 4:02 (specimen) EST PM EST Yonathan Smith MD POINT OF CARE TEST ORDERABLE S Performing Organization Address City/State/[place] [address] POCT Glucose (08/13/2017 11:31 AM EST) athologist Signature POC Glucose 179 65 - 199 [facility] mg/dL [facility] Comment: Supplemental ranges: <140 mg/dL before meals <180 mg/dL all other times of the day Specimen Anatomical Collection Method Collection Time Receive d Time (Source) Location / / Volume Laterality Blood specimen 08/13/2017 11:31 8 (specimen) AM EST 11:31 AM EST Yonathan Smith MD POINT OF CARE TEST ORDERABLE S Performing Organization Address City/[facility]/[place] [address] (ABNORMAL) POCT Glucose (08/13/2017 10:16 AM EST) athologist Signature POC Glucose 211 (H) 65 - 199 [facility] mg/dL [facility] Comment: Supplemental ranges: <140 mg/dL before meals <180 mg/dL all other times of the day Specimen Anatomical Collection Method Collection Time Receive d Time (Source) Location / / Volume Laterality Blood specimen 08/13/2017 10:16 8 (specimen) AM EST 10:16 AM EST Yonathan Smith MD POINT OF CARE TEST ORDERABLE S Performing Organization Address City/[facility]/[place] [address] JULIAN, legs, multiple levels (08/13/2017 7:42 AM EST) Component Value Ref [facility] Method Time Signature VB Text Department: Vascular Surgery Lab VASCUBASE Report Patient: [id number] (GREGORY HOANG) CPT: 87122 ICD10: I99.8 Referring Physician: YONATHAN SMITH ?? Indications: s/p R 1,2,3 toe amps with red left foot, need n ew baseline Diabetes mellitus: yes ICD10 Diagnosis Code: I99.8 Findings: Right ?Pressure (mm Hg) ?? JULIAN ??Waveform ?TBI ?? Brachial Artery ?138 ? Dorsalis Pedis (Ankle) Arter y ?132 ? 0.94 ??[place]- Biphasic ? Posterior Tibial (Ankle) Art anila ??154 ? 1.10 ??[place]-Biphasic ? Fourth Toe ? 67 ? 0.48 [...] Glucose 156 65 - 199 [facility] mg/dL [facility] Comment: Supplemental ranges: <140 mg/dL before meals <180 mg/dL all other times of the day Specimen Anatomical Collection Method Collection Time Receive d Time (Source) Location / / Volume Laterality Blood specimen 08/13/2017 7:33 AM 018 7:33 (specimen) EST AM EST Yonathan Smith MD POINT OF CARE TEST ORDERABLE S Performing Organization Address City/State/Z[place] [address] (ABNORMAL) Differential, Automated (08/13/2017 5:33 AM EST) Patholo gist Method Time Signature Neutrophils % 77.8 % [facility] Neutr Abs (ANC) 7.83 (H) 1.70 - [facility] 6.10 [facility] x10(3)/[facility] LABORATORY Lymphocytes % 8.4 % [facility] Lymphocytes Abs 0.8 (L) 0.9 - 3.2 [facility] x10(3)/[facility] LABORATORY Monocytes % 8.3 % [facility] Monocyte Abs 0.8 0.3 - 0.9 [facility] x10(3)/[facility] LABORATORY Eosinophils % 4.6 % [facility] Eosinophils Abs 0.5 (H) 0.0 - 0.4 [facility] x10(3)/[facility] LABORATORY Basophils % 0.5 % [facility] Basophils Abs 0.0 0.0 - 0.1 [facility] x10(3)/[facility] LABORATORY Immature [...] 0.00 - 0.04 x10(3)/[facility] LABORATORY Specimen Anatomical Collection Method Collection Time Receive d Time (Source) Location / / Volume Laterality Blood specimen 08/13/2017 5:33 AM 018 6:04 (specimen) EST AM EST Resulting Agency Comment Spec In Lab Yonathan Smith MD HEMATOLOGY ORDERABLES Performing Organization Address City/State/ZIP Code Phon e Number [place] [id number] (ABNORMAL) Hemogram (08/13/2017 5:33 AM EST) Analysis Performed At Patho logist Time Signature WBC 10.1 (H) 4.0 - 9.5 [facility] x10(3)/[facility] LABORATORY RBC 3.21 (L) 4.58 - [facility] 5.54 [facility] x10(6)/[facility] LABORATORY Hemoglobin 9.2 (L) 13.7 - [facility] 16.5 gm/dL [facility] Hematocrit 29.6 (L) 40.5 - [facility] 48.[facility] % [facility] MCV 92.2 82.9 - [facility]1 [facility] LABORATORY MCH 28.7 27.5 - [facility] 32.1 pg [facility] MCHC 31.1 (L) 32.0 - [facility] 35.7 gm/dL [facility] Platelets 263 145 - 357 [facility] x10(3)/[facility] LABORATORY RDWSD 54.8 (H) 36.0 - [facility] 45.0 [facility] LABORATORY RDWCV 16.4 (H) 11.4 - [facility] 13.8 % [facility] MPV 9.2 7.6 - 12.9 [facility] LABORATORY nRBC % Auto 0.0 % [facility] nRBC Abs Auto 0.000 0.000 - [facility] 0.000 [facility] x10(3)/[facility] LABORATORY Specimen Anatomical Collection Method Collection Time Receive d Time (Source) Location / / Volume Laterality Blood specimen 08/13/2017 5:33 AM 018 6:04 (specimen) EST AM EST Resulting Agency Comment Spec In Lab Yonathan Smith MD HEMATOLOGY ORDERABLES Performing Organization Address City/State/[place] [address] (ABNORMAL) Prothrombin Time (08/13/2017 [...] Organization Address City/State/[place] [address] (ABNORMAL) Basic Metabolic Panel (non-fasting) (08/13/2017 5:33 AM EST) P athologist Signature Glucose Lvl 126 65 - 199 [facility] mg/dL [facility] Comment: Diabetes: [...] or in patients with acute kidney failure. [email or web address] Specimen Anatomical Collection Method Collection Time Receive d Time (Source) Location / / Volume Laterality Blood specimen 08/13/2017 5:33 AM 018 6:04 (specimen) EST AM EST Resulting Agency Comment Spec In Lab Yonathan Smith MD CHEMISTRY ORDERABLES Performing Organization Address City/State/ZIP Code Phon e Number [address] POCT Glucose (08/13/2017 4:29 AM EST) athologist Signature POC Glucose 111 65 - 199 [facility] mg/dL [facility] Comment: Supplemental ranges: <140 mg/dL before meals <180 mg/dL all other times of the day Specimen Anatomical Collection Method Collection Time Receive d Time (Source) Location / / Volume Laterality Blood specimen 08/13/2017 4:29 AM 018 4:29 (specimen) EST AM EST Yonathan Smith MD POINT OF CARE TEST ORDERABLE S Performing Organization Address City/[facility]/[place] [address] POCT Glucose (08/12/2017 11:28 PM EST) athologist Signature POC Glucose 164 65 - 199 [facility] mg/dL [facility] Comment: Supplemental ranges: <140 mg/dL before meals <180 mg/dL all other times of the day Specimen Anatomical Collection Method Collection Time Receive d Time (Source) Location / / Volume Laterality Blood specimen 08/12/2017 11:28 8 (specimen) PM EST 11:28 PM EST Yonathan Smith MD POINT OF CARE TEST ORDERABLE S Performing Organization Address City/[facility]/ZIP Code Phon e Number [address] (ABNORMAL) POCT Glucose (08/12/2017 7:40 PM EST) athologist Signature POC Glucose 209 (H) 65 - 199 [facility] mg/dL [facility] Comment: Supplemental ranges: <140 mg/dL before meals <180 mg/dL all other times of the day Specimen Anatomical Collection Method Collection Time Receive d Time (Source) Location / / Volume Laterality Blood specimen 08/12/2017 7:40 PM 018 7:40 (specimen) EST PM EST Yonathan Smith MD POINT OF CARE TEST ORDERABLE S Performing Organization Address City/State/ZIP Code Phon e Number [address] POCT Glucose (08/12/2017 4:24 PM EST) athologist Signature POC Glucose 161 65 - 199 [facility] mg/dL [facility] Comment: Supplemental ranges: <140 mg/dL before meals <180 mg/dL all other times of the day Specimen Anatomical Collection Method Collection Time Receive d Time (Source) Location / / Volume Laterality Blood specimen 08/12/2017 4:24 PM 018 4:24 (specimen) EST PM EST Yonathan Smith MD POINT OF CARE TEST ORDERABLE S Performing Organization Address City/State/ZIP Code Phon e Number [address] POCT Glucose (08/12/2017 12:00 PM EST) athologist Signature POC Glucose 167 65 - 199 [facility] mg/dL [facility] Comment: Supplemental ranges: <140 mg/dL before meals <180 mg/dL all other times of the day Specimen Anatomical Collection Method Collection Time Receive d Time (Source) Location / / Volume Laterality Blood specimen 08/12/2017 12:00 8 (specimen) PM EST 12:00 PM EST Yonathan Smith MD POINT OF CARE TEST ORDERABLE S Performing Organization Address City/State/ZIP Code Phon e Number [address] POCT Glucose (08/12/2017 7:25 AM EST) athologist Signature POC Glucose 152 65 - 199 [facility] mg/dL [facility] Comment: Supplemental ranges: <140 mg/dL before meals <180 mg/dL all other times of the day Specimen Anatomical Collection Method Collection Time Receive d Time (Source) Location / / Volume Laterality Blood specimen 08/12/2017 7:25 AM 018 7:25 (specimen) EST AM EST Yonathan Smith MD POINT OF CARE TEST ORDERABLE S Performing Organization Address City/State/[place] [address] (ABNORMAL) Differential, Automated (08/12/2017 6:29 AM EST) [facility] Method Time Signature Neutrophils % 78.7 % [facility] LABORATORY Neutr Abs (ANC) 7.94 (H) 1.70 - [facility] 6.10 [facility] x10(3)/[facility] LABORATORY Lymphocytes % 8.8 % [facility] LABORATORY Lymphocytes Abs 0.9 0.9 - 3.2 [facility] x10(3)/[facility] LABORATORY Monocytes % 7.8 % [facility] LABORATORY Monocyte Abs 0.8 0.3 - 0.9 [facility] x10(3)/[facility] LABORATORY Eosinophils % 3.9 % [facility] LABORATORY Eosinophils Abs 0.4 0.0 - 0.4 [facility] x10(3)/[facility] LABORATORY Basophils % 0.3 % [facility] LABORATORY Basophils Abs 0.0 0.0 - 0.1 [facility] x10(3)/[facility] LABORATORY Immature [...] Address City/State/ZIP Code Phon e Number [address] (ABNORMAL) Hemogram (08/12/2017 6:29 AM EST) Analysis Performed At Patho logist Time Signature WBC 10.1 (H) 4.0 - 9.5 [facility] x10(3[facility] LABORATORY RBC 3.02 (L) 4.58 - [facility] 5.54 [facility] x10(6)/[facility] LABORATORY Hemoglobin 8.7 (L) 13.7 - [facility] 16.5 gm/dL [facility] LABORATORY Hematocrit 28.1 (L) 40.5 - [facility] 48.5 % [facility] LABORATORY MCV 93.0 82.9 - [facility] LABORATORY MCH 28.8 27.5 - [facility] 32.1 pg [facility] LABORATORY MCHC 31.0 (L) 32.0 - [facility] 35.7 gm/dL [facility] LABORATORY Platelets 223 145 - 357 [facility] x10(3)/[facility] LABORATORY RDWSD 56.1 (H) 36.0 - [facility] 45.0 [facility] LABORATORY RDWCV 16.4 (H) 11.4 - [facility] 13.8 % [facility] LABORATORY MPV 9.0 7.6 - 12.9 [facility] LABORATORY nRBC % Auto 0.0 % [facility] LABORATORY nRBC Abs Auto 0.000 0.000 - [place] 0.000 [facility] x10(3)/[facility] LABORATORY Specimen Anatomical Collection Method Collection Time Receive d Time (Source) Location / / Volume Laterality Blood specimen 08/12/2017 6:29 AM 018 6:38 (specimen) EST AM EST Resulting Agency Comment Spec In Lab Yonathan Smith MD HEMATOLOGY ORDERABLES Performing Organization Address City/State/[place] [address] (ABNORMAL) Prothrombin Time (08/12/2017 [...] Organization Address City/State/[place] [address] (ABNORMAL) Basic Metabolic Panel (non-fasting) (08/12/2017 6:29 AM EST) athologist Signature Glucose Lvl 151 65 - 199 [facility] mg/dL [facility] LABORATORY Comment: Diabetes: [...] or in patients with acute kidney failure. [email or web address] Specimen Anatomical Collection Method Collection Time Receive d Time (Source) Location / / Volume Laterality Blood specimen 08/12/2017 6:29 AM 018 6:38 (specimen) EST AM EST Resulting Agency Comment Spec In Lab Yonathan Smith MD CHEMISTRY ORDERABLES Performing Organization Address City/[facility]/ZIP Code Phon e Number [address] POCT Glucose (08/12/2017 4:08 AM EST) athologist Signature POC Glucose 181 65 - 199 [facility] LABORATORY Comment: Supplemental ranges: <140 mg/dL before meals <180 mg/dL all other times of the day Specimen Anatomical Collection Method Collection Time Receive d Time (Source) Location / / Volume Laterality Blood specimen 08/12/2017 4:08 AM 018 4:08 (specimen) EST AM EST Yonathan Smith MD POINT OF CARE TEST ORDERABLE S Performing Organization Address City/State/[place] [address] (ABNORMAL) POCT Glucose (08/12/2017 12:17 AM EST) P athologist Signature POC Glucose 221 (H) 65 - 199 [facility] mg/dL [facility] LABORATORY Comment: Supplemental ranges: <140 mg/dL before meals <180 mg/dL all other times of the day Specimen Anatomical Collection Method Collection Time Receive d Time (Source) Location / / Volume Laterality Blood specimen 08/12/2017 12:17 8 (specimen) AM EST 12:17 AM EST Yonathan Smith MD POINT OF CARE TEST ORDERABLE S Performing Organization Address City/[facility]/ZIP Code Phon e Number [address] (ABNORMAL) POCT Glucose (08/11/2017 8:52 PM EST) athologist Signature POC Glucose 221 (H) 65 - 199 [facility] mg/dL [facility] LABORATORY Comment: Supplemental ranges: <140 mg/dL before meals <180 mg/dL all other times of the day Specimen Anatomical Collection Method Collection Time Receive d Time (Source) Location / / Volume Laterality Blood specimen 08/11/2017 8:52 PM 018 8:52 (specimen) EST PM EST Yonathan Smith MD POINT OF CARE TEST ORDERABLE S Performing Organization Address City/[facility]/[place] [address] POCT Glucose (08/11/2017 5:59 PM EST) athologist Signature POC Glucose 169 65 - 199 [facility] mg/dL [facility] LABORATORY Comment: Supplemental ranges: <140 mg/dL before meals <180 mg/dL all other times of the day Specimen Anatomical Collection Method Collection Time Receive d Time (Source) Location / / Volume Laterality Blood specimen 08/11/2017 5:59 PM 018 5:59 (specimen) EST PM EST Yonathan Smith MD POINT OF CARE TEST ORDERABLE S Performing Organization Address City/[facility]/[place] [address] (ABNORMAL) POCT Glucose (08/11/2017 4:08 PM EST) athologist Signature POC Glucose 240 (H) 65 - 199 [facility] mg/dL [facility] LABORATORY Comment: Supplemental ranges: <140 mg/dL before meals <180 mg/dL all other times of the day Specimen Anatomical Collection Method Collection Time Receive d Time (Source) Location / / Volume Laterality Blood specimen 08/11/2017 4:08 PM 01/17/2 018 4:08 (specimen) EST PM EST Yonathan Smith MD POINT OF CARE TEST ORDERABLE S Performing Organization Address City/State/ZIP Code Phon e Number [address] POCT Glucose (08/11/2017 12:04 PM EST) athologist Signature POC Glucose 182 65 - 199 [facility] mg/dL [facility] LABORATORY Comment: Supplemental ranges: <140 mg/dL before meals <180 mg/dL all other times of the day Specimen Anatomical Collection Method Collection Time Receive d Time (Source) Location / / Volume Laterality Blood specimen 08/11/2017 12:04 8 (specimen) PM EST 12:04 PM EST Yonathan Smith MD POINT OF CARE TEST ORDERABLE S Performing Organization Address City/State/ZIP Code Phon e Number [address] POCT Glucose (08/11/2017 7:31 AM EST) athologist Signature POC Glucose 156 65 - 199 [facility] mg/dL [facility] LABORATORY Comment: Supplemental ranges: <140 mg/dL before meals <180 mg/dL all other times of the day Specimen Anatomical Collection Method Collection Time Receive d Time (Source) Location / / Volume Laterality Blood specimen 08/11/2017 7:31 AM 018 7:31 (specimen) EST AM EST Yonathan Smith MD POINT OF CARE TEST ORDERABLE S Performing Organization Address City/State/ZIP Code Phon e Number [address] (ABNORMAL) Differential, Automated (08/11/2017 6:16 AM EST) [facility] gist Method Time Signature Neutrophils % 83.7 % [facility] LABORATORY Neutr Abs (ANC) 10.76 (H) 1.70 - [facility] 6.10 [facility] x10(3)/[facility] LABORATORY Lymphocytes % 6.0 % [facility] LABORATORY Lymphocytes Abs 0.8 (L) 0.9 - 3.2 [facility] x10(3)/[facility] LABORATORY Monocytes % 7.5 % [facility] LABORATORY Monocyte Abs 1.0 (H) 0.3 - 0.9 [facility] x10(3)/[facility] LABORATORY Eosinophils % 2.0 % [facility] LABORATORY Eosinophils Abs 0.3 0.0 - 0.4 [facility] x10(3)/[facility] LABORATORY Basophils % 0.3 % [facility] LABORATORY Basophils Abs 0.0 0.0 - 0.1 [facility] x10(3)/[facility] LABORATORY Immature [...] Gran Abs 0.06 (H) 0.00 - 0.04 x10(3)/[facility] LABORATORY Specimen Anatomical Collection Method Collection Time Receive d Time (Source) Location / / Volume Laterality Blood specimen 08/11/2017 6:16 AM 018 6:24 (specimen) EST AM EST Resulting Agency Comment Spec In Lab Yonathan Smith MD HEMATOLOGY ORDERABLES Performing Organization Address City/State/Z[place] [address] (ABNORMAL) Hemogram (08/11/2017 6:16 AM EST) Analysis Performed At Patho logist Time Signature WBC 12.9 (H) 4.0 - 9.5 [facility] x10(3)/[facility] LABORATORY RBC 3.28 (L) 4.58 - [facility] 5.54 [facility] x10(6)/[facility] LABORATORY Hemoglobin 9.5 (L) 13.7 - [facility] 16.5 gm/dL [facility] LABORATORY Hematocrit 29.8 (L) 40.5 - [facility] 48.[facility] % [facility] LABORATORY MCV 90.9 82.9 - [facility] 93.1 [facility] LABORATORY MCH 29.0 27.5 - [facility] 32.1 pg [facility] LABORATORY MCHC 31.9 (L) 32.0 - [facility] 35.7 gm/dL [facility] LABORATORY Platelets 236 145 - 357 [facility] x10(3)/[facility] LABORATORY RDWSD 53.5 (H) 36.0 - [facility] 45.0 [facility] LABORATORY RDWCV 16.3 (H) 11.4 - [facility] 13.8 % [facility] LABORATORY MPV 8.8 7.6 - 12.9 [facility] LABORATORY nRBC % Auto 0.0 % [facility] LABORATORY nRBC Abs Auto 0.000 0.000 - [facility] 0.000 [facility] x10(3)/[facility] LABORATORY Specimen Anatomical Collection Method Collection Time Receive d Time (Source) Location / / Volume Laterality Blood specimen 08/11/2017 6:16 AM 018 6:24 (specimen) EST AM EST Resulting Agency Comment Spec In Lab Yonathan Smith MD HEMATOLOGY ORDERABLES Performing Organization Address City/State/Z[place] [address] (ABNORMAL) Prothrombin Time (08/11/2017 [...] Smith MD HEMATOLOGY ORDERABLES Performing Organization Address City/[facility]/[place] [address] Basic Metabolic Panel (non-fasting) (08/11/2017 6:16 AM EST) athologist Signature Glucose Lvl 139 65 - 199 [facility] mg/dL [facility] LABORATORY Comment: Diabetes: [...] or in patients with acute kidney failure. [email or web address] Specimen Anatomical Collection Method Collection Time Receive d Time (Source) Location / / Volume Laterality Blood specimen 08/11/2017 6:16 AM 018 6:24 (specimen) EST AM EST Resulting Agency Comment Spec In Lab Yonathan Smith MD CHEMISTRY ORDERABLES Performing Organization Address City/[facility]/ZIP Code Phon e Number [address] POCT Glucose (08/11/2017 4:07 AM EST) athologist Signature POC Glucose 162 65 - 199 [facility] mg/dL [facility] LABORATORY Comment: Supplemental ranges: <140 mg/dL before meals <180 mg/dL all other times of the day Specimen Anatomical Collection Method Collection Time Receive d Time (Source) Location / / Volume Laterality Blood specimen 08/11/2017 4:07 AM 018 4:07 (specimen) EST AM EST Yonathan Smith MD POINT OF CARE TEST ORDERABLE S Performing Organization Address City/State/ZIP Code Phon e Number [address] POCT Glucose (08/10/2017 11:59 PM EST) athologist Signature POC Glucose 166 65 - 199 [facility] mg/dL [facility] LABORATORY Comment: Supplemental ranges: <140 mg/dL before meals <180 mg/dL all other times of the day Specimen Anatomical Collection Method Collection Time Receive d Time (Source) Location / / Volume Laterality Blood specimen 08/10/2017 11:59 8 (specimen) PM EST 11:59 PM EST Yonathan Smith MD POINT OF CARE TEST ORDERABLE S Performing Organization Address City/State/[place] [address] POCT Glucose (08/10/2017 8:12 PM EST) athologist Signature POC Glucose 156 65 - 199 [facility] mg/dL [facility] LABORATORY Comment: Supplemental ranges: <140 mg/dL before meals <180 mg/dL all other times of the day Specimen Anatomical Collection Method Collection Time Receive d Time (Source) Location / / Volume Laterality Blood specimen 08/10/2017 8:12 PM 018 8:12 (specimen) EST PM EST Yonathan Smith MD POINT OF CARE TEST ORDERABLE S Performing Organization Address City/State/[place] [address] (ABNORMAL) POCT Glucose (08/10/2017 4:42 PM EST) P athologist Signature POC Glucose 211 (H) 65 - 199 [facility] mg/dL [facility] LABORATORY Comment: Supplemental ranges: <140 mg/dL before meals <180 mg/dL all other times of the day Specimen Anatomical Collection Method Collection Time Receive d Time (Source) Location / / Volume Laterality Blood specimen 08/10/2017 4:42 PM 018 4:42 (specimen) EST PM EST Yonathan Smith MD POINT OF CARE TEST ORDERABLE S Performing Organization Address City/State/ZIP Code Phon e Number [place] [id number] (ABNORMAL) Differential, Automated (08/10/2017 2:30 PM EST) Patholo gist Method Time Signature Neutrophils % 87.6 % [facility] LABORATORY Neutr Abs (ANC) 9.90 (H) 1.70 - [facility] 6.10 [facility] x10(3)/[facility] L LABORATORY Lymphocytes % 4.3 % [facility] LABORATORY Lymphocytes Abs 0.5 (L) 0.9 - 3.2 [facility] x10(3)/[facility] LABORATORY Monocytes % 6.0 % [facility] LABORATORY Monocyte Abs 0.7 0.3 - 0.9 [facility] x10(3)/[facility] LABORATORY Eosinophils % 1.1 % [facility] LABORATORY Eosinophils Abs 0.1 0.0 - 0.4 [facility] x10(3)/[facility] LABORATORY Basophils % 0.4 % [facility] LABORATORY Basophils Abs 0.0 0.0 - 0.1 [facility] x10(3)/[facility] LABORATORY Immature [...] Gran Abs 0.07 (H) 0.00 - 0.04 x10(3)/[facility] LABORATORY Specimen Anatomical Collection Method Collection Time Receive d Time (Source) Location / / Volume Laterality Blood specimen 08/10/2017 2:30 PM 018 2:48 (specimen) EST PM EST Resulting Agency Comment Spec In Lab Yonathan Smith MD HEMATOLOGY ORDERABLES Performing Organization Address City/State/Z[place] [address] (ABNORMAL) Hemogram (08/10/2017 2:30 PM EST) Analysis Performed At Patho logist Time Signature WBC 11.3 (H) 4.0 - 9.5 [facility] x10(3)/[facility] LABORATORY RBC 3.13 (L) 4.58 - [facility] x10(6)/[facility] LABORATORY Hemoglobin 8.9 (L) 13.7 - [facility] 16.[facility] gm/dL [facility] LABORATORY Hematocrit 28.4 (L) 40.5 - [facility] 48.5 % [facility] LABORATORY MCV 90.7 82.9 - [facility] 93.1 [facility] LABORATORY MCH 28.4 27.5 - [facility] 32.1 pg [facility] LABORATORY MCHC 31.3 (L) 32.0 - [facility] gm/dL [facility] LABORATORY Platelets 213 145 - 357 [facility] x10(3)/[facility] LABORATORY RDWSD 53.7 (H) 36.0 - [facility] 45.0 [facility] LABORATORY RDWCV 16.4 (H) 11.4 - [facility] 13.8 % [facility] LABORATORY MPV 8.9 7.6 - 12.9 [facility] LABORATORY nRBC % Auto 0.0 % [facility] LABORATORY nRBC Abs Auto 0.000 0.000 - [facility] 0.000 [facility] x10(3)/[facility] LABORATORY Specimen Anatomical Collection Method Collection Time Receive d Time (Source) Location / / Volume Laterality Blood specimen 08/10/2017 2:30 PM 018 2:48 (specimen) EST PM EST Resulting Agency Comment Spec In Lab Yonathan Smith MD HEMATOLOGY ORDERABLES Performing Organization Address City/State/ZIP Code Phon e Number [address] (ABNORMAL) POCT Glucose (08/10/2017 1:50 PM EST) athologist Signature POC Glucose 243 (H) 65 - 199 [facility] mg/dL [facility] LABORATORY Comment: Supplemental ranges: <140 mg/dL before meals <180 mg/dL all other times of the day Specimen Anatomical Collection Method Collection Time Receive d Time (Source) Location / / Volume Laterality Blood specimen 08/10/2017 1:50 PM 018 1:50 (specimen) EST PM EST Yonathan Smith MD POINT OF CARE TEST ORDERABLE S Performing Organization Address City/[facility]/ZIP Code Phon e Number [address] POCT Glucose (08/10/2017 11:21 AM EST) athologist Signature POC Glucose 156 65 - 199 [facility] mg/dL [facility] LABORATORY Comment: Supplemental ranges: <140 mg/dL before meals <180 mg/dL all other times of the day Specimen Anatomical Collection Method Collection Time Receive d Time (Source) Location / / Volume Laterality Blood specimen 08/10/2017 11:21 8 (specimen) AM EST 11:21 AM EST Yonathan Smith MD POINT OF CARE TEST ORDERABLE S Performing Organization Address City/[facility]/[place] [address] (ABNORMAL) Differential, Automated (08/10/2017 10:28 AM EST) [facility] Time Signature Neutrophils % 85.3 % [facility] LABORATORY Neutr Abs (ANC) 9.43 (H) 1.70 - [facility] 6.10 [facility] x10(3)/[facility] L LABORATORY Lymphocytes % 5.5 % [facility] LABORATORY Lymphocytes Abs 0.6 (L) 0.9 - 3.2 [facility] x10(3)/[facility] LABORATORY Monocytes % 5.9 % [facility] LABORATORY Monocyte Abs 0.6 0.3 - 0.9 [facility] x10(3)/[facility] LABORATORY Eosinophils % 2.1 % [facility] LABORATORY Eosinophils Abs 0.2 0.0 - 0.4 [facility] x10(3)/[facility] LABORATORY Basophils % 0.4 % [facility] LABORATORY Basophils Abs 0.0 0.0 - 0.1 [facility] x10(3)/[facility] LABORATORY Immature [...] Organization Address City/State/Z[place] [address] (ABNORMAL) Hemogram (08/10/2017 10:28 AM EST) Analysis Performed At Patho logist Time Signature WBC 11.0 (H) 4.0 - 9.5 [facility] x10(3)/[facility] LABORATORY RBC 3.02 (L) 4.58 - [facility] 5.54 [facility] x10(6)/[facility] LABORATORY Hemoglobin 8.8 (L) 13.7 - [facility] 16.[facility] gm/dL [facility] LABORATORY Hematocrit 28.1 (L) 40.5 - [facility] 48.5 % [facility] LABORATORY MCV 93.0 82.9 - [facility] 93.1 [facility] MCH 29.1 27.5 - [facility] 32.1 pg [facility] MCHC 31.3 (L) 32.0 - [facility] 35.7 gm/dL [facility] Platelets 207 145 - 357 [facility] x10(3)/[facility] LABORATORY RDWSD 55.3 (H) 36.0 - [facility] 45.0 [facility] RDWCV 16.4 (H) 11.4 - [facility] 13.8 % [facility] MPV 9.0 7.6 - 12.9 [facility] LABORATORY nRBC % Auto 0.0 % [facility] nRBC Abs Auto 0.000 0.000 - [facility] 0.000 [facility] x10(3)/[facility] LABORATORY Specimen Anatomical Collection Method Collection Time Receive d Time (Source) Location / / Volume Laterality Blood specimen 08/10/2017 10:28 8 (specimen) AM EST 10:35 AM EST Resulting Agency Comment Spec In Lab Yonathan Smith MD HEMATOLOGY ORDERABLES Performing Organization Address City/State/[place] [address] VS Angiogram/intervention (vascular) (08/10/2017 [...] 5. Completion RLE angiogram 6. L BARGE LOADER angiogram 7. 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 L BARGE LOADER access in the distal L BARGE LOADER. - Closure device: Mynx Technical Procedure: ?The [...] for a 45cm 5F Destination. V18 and [place] a nd QuickCross catheters were used to [...] Access appeared in the distal R BARGE LOADER. Closure and sheath removal was performed with [...] 5. Completion RLE angiogram 6. L BARGE LOADER angiogram 7. 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 L BARGE LOADER access in the distal L BARGE LOADER. - Closure device: Mynx Technical Procedure: The [...] for a 45cm 5F Destination. V18 and [place] a nd QuickCross catheters were used to [...] Access appeared in the distal R BARGE LOADER. Closure and sheath removal was performed with [...] (ABNORMAL) Differential, Automated (08/10/2017 5:50 AM EST) [facility] gist Method Time Signature Neutrophils % 80.1 % [facility] LABORATORY Neutr Abs (ANC) 9.01 (H) 1.70 - [facility] 6.10 [facility] x10(3)/[facility] LABORATORY Lymphocytes % 8.8 % [facility] LABORATORY Lymphocytes Abs 1.0 0.9 - 3.2 [facility] x10(3)/[facility] LABORATORY Monocytes % 8.3 % [facility] LABORATORY Monocyte Abs 0.9 0.3 - 0.9 [facility] x10(3)/[facility] LABORATORY Eosinophils % 2.0 % [facility] LABORATORY Eosinophils Abs 0.2 0.0 - 0.4 [facility] x10(3)/[facility] LABORATORY Basophils % 0.4 % [facility] LABORATORY Basophils Abs 0.0 0.0 - 0.1 [facility] x10(3)/[facility] LABORATORY Immature [...] Organization Address City/State/[place] [address] (ABNORMAL) Hemogram (08/10/2017 5:50 AM EST) Analysis Performed At Patho logist Time Signature WBC 11.3 (H) 4.0 - 9.5 [facility](3[facility] LABORATORY RBC 3.15 (L) 4.58 - [facility] 5.54 [facility] x10(6)/[facility] LABORATORY Hemoglobin 8.9 (L) 13.7 - [facility] 16.5 gm/dL [facility] LABORATORY Hematocrit 29.0 (L) 40.5 - [facility] 48.5 % [facility] LABORATORY MCV 92.1 82.9 - [facility] 93.1 [facility] LABORATORY MCH 28.3 27.5 - [facility] 32.1 pg [facility] LABORATORY MCHC 30.7 (L) 32.0 - [facility] 35.7 gm/dL [facility] LABORATORY Platelets 231 145 - 357 [facility] x10(3)/[facility] LABORATORY RDWSD 53.9 (H) 36.0 - [facility] 45.0 [facility] LABORATORY RDWCV 16.2 (H) 11.4 - [facility] 13.8 % [facility] LABORATORY MPV 8.7 7.6 - 12.9 [facility] LABORATORY nRBC % Auto 0.0 % [facility] LABORATORY nRBC Abs Auto 0.000 0.000 - [facility] 0.000 [facility] x10(3)/[facility] LABORATORY Specimen Anatomical Collection Method Collection Time Receive d Time (Source) Location / / Volume Laterality Blood specimen 08/10/2017 5:50 AM 018 5:59 (specimen) EST AM EST Resulting Agency Comment Spec In Lab Yonathan Smith MD HEMATOLOGY ORDERABLES Performing Organization Address City/State/[place] [address] (ABNORMAL) Basic Metabolic Panel (non-fasting) (08/10/2017 5:50 AM EST) athologist Signature Glucose Lvl 135 65 - 199 [facility] mg/dL [facility] LABORATORY Comment: Diabetes: [...] or in patients with acute kidney failure. [email or web address] [email or web address] Specimen Anatomical Collection Method Collection Time Receive d Time (Source) Location / / Volume Laterality Blood specimen 08/10/2017 5:50 AM 018 5:59 (specimen) EST AM EST Resulting Agency Comment Spec In Lab Yonathan Smith MD CHEMISTRY ORDERABLES Performing Organization Address City/[facility]/[place] [address] (ABNORMAL) Prothrombin Time (08/10/2017 [...] Smith MD HEMATOLOGY ORDERABLES Performing Organization Address City/[facility]/[place] [address] (ABNORMAL) POCT Glucose (08/10/2017 4:01 AM EST) athologist Signature POC Glucose 206 (H) 65 - 199 [facility] mg/dL [facility] LABORATORY Comment: Supplemental ranges: <140 mg/dL before meals <180 mg/dL all other times of the day Specimen Anatomical Collection Method Collection Time Receive d Time (Source) Location / / Volume Laterality Blood specimen 08/10/2017 4:01 AM 018 4:01 (specimen) EST AM EST Yonathan Smith MD POINT OF CARE TEST ORDERABLE S Performing Organization Address City/[facility]/ZIP [place] [address] POCT Glucose (08/10/2017 2:01 AM EST) athologist Signature POC Glucose 188 65 - 199 [place] mg/dL [facility] LABORATORY Comment: Supplemental ranges: <140 mg/dL before meals <180 mg/dL all other times of the day Specimen Anatomical Collection Method Collection Time Receive d Time (Source) Location / / Volume Laterality Blood specimen 08/10/2017 2:01 AM 018 2:01 (specimen) EST AM EST Yonathan Smith MD POINT OF CARE TEST ORDERABLE S Performing Organization Address City/State/[place] [address] (ABNORMAL) POCT Glucose (08/09/2017 11:42 PM EST) athologist Signature POC Glucose 283 (H) 65 - 199 [facility] mg/dL [facility] LABORATORY Comment: Supplemental ranges: <140 mg/dL before meals <180 mg/dL all other times of the day Specimen Anatomical Collection Method Collection Time Receive d Time (Source) Location / / Volume Laterality Blood specimen 08/09/2017 11:42 8 (specimen) PM EST 11:42 PM EST Yonathan Smith MD POINT OF CARE TEST ORDERABLE S Performing Organization Address City/State/[place] [address] POCT Glucose (08/09/2017 8:55 PM EST) athologist Signature POC Glucose 182 65 - 199 [facility] mg/dL [facility] LABORATORY Comment: Supplemental ranges: <140 mg/dL before meals <180 mg/dL all other times of the day Specimen Anatomical Collection Method Collection Time Receive d Time (Source) Location / / Volume Laterality Blood specimen 08/09/2017 8:55 PM 018 8:55 (specimen) EST PM EST Yonathan Smith MD POINT OF CARE TEST ORDERABLE S Performing Organization Address City/State/[place] [address] (ABNORMAL) APTT (08/09/2017 6:42 [...] Smith MD HEMATOLOGY ORDERABLES Performing Organization Address City/[facility]/ZIP [facility] Phon e Number [address] POCT Glucose (08/09/2017 4:41 PM EST) athologist Signature POC Glucose 195 65 - 199 [facility]dL [facility] LABORATORY Comment: Supplemental ranges: <140 mg/dL before meals <180 mg/dL all other times of the day Specimen Anatomical Collection Method Collection Time Receive d Time (Source) Location / / Volume Laterality Blood specimen 08/09/2017 4:41 PM 018 4:41 (specimen) EST PM EST Yonathan Smith MD POINT OF CARE TEST ORDERABLE S Performing Organization Address City/[facility]/[place] [address] POCT Glucose (08/09/2017 12:29 PM EST) athologist Signature POC Glucose 140 65 - 199 [facility] mg/dL [facility] LABORATORY Comment: Supplemental ranges: <140 mg/dL before meals <180 mg/dL all other times of the day Specimen Anatomical Collection Method Collection Time Receive d Time (Source) Location / / Volume Laterality Blood specimen 08/09/2017 12:29 8 (specimen) PM EST 12:29 PM EST Yonathan Smith MD POINT OF CARE TEST ORDERABLE S Performing Organization Address City/State/[place] [address] POCT Glucose (08/09/2017 9:59 AM EST) P athologist Signature POC Glucose 135 65 - 199 [facility] mg/dL [facility] LABORATORY Comment: Supplemental ranges: <140 mg/dL before meals <180 mg/dL all other times of the day Specimen Anatomical Collection Method Collection Time Receive d Time (Source) Location / / Volume Laterality Blood specimen 08/09/2017 9:59 AM 018 9:59 (specimen) EST AM EST Yonathan Smith MD POINT OF CARE TEST ORDERABLE S Performing Organization Address City/[facility]/[place] [address] Specimen to Pathology (08/09/2017 8:41 AM EST) Specimen Anatomical Collection Method Collection Time Receive d Time (Source) Location / / Volume Laterality AP Specimen 08/09/2017 8:41 AM 8 8:41 EST AM EST Narrative [facility] LABORAT ORY - 08/09/2017 8:41 AM EST Specimen requisition ordered. ??Separate Pathology report to follow Yonatahn Smith MD PATHOLOGY/CYTOLOGY ORDERABLE S Performing Organization Address City/[facility]/[place] [address] Surgical Pathology Report (08/09/2017 8:40 AM EST) Component Value Ref Test Analysis Performed At Patholo gist Range Method Time Signature Surgical [id number] ? Location: [facility]; [facility]; A [facility] Report The signing pathologist has [...] [facility] Dept. of Pathology, [place], [place] CLINICAL INFORMATION Specimen Submitted: A - [...] Organization Address City/State/Z[place] [address] Anaerobic Culture (08/09/2017 8:30 AM EST) [facility] gist Method Time Signature Anaerobic No anaerobic [facility] Culture organisms [facility] LABORATORY Specimen Anatomical Collection Method Collection Time [...] Organization Address City/State/[place] [address] (ABNORMAL) Abscess/Wound Aspirate Culture (08/09/2017 8:30 AM EST) Patholo gist Method Time Signature Abscess/Wound Moderate mixed [place] Aspirate bacterial [place] Culture morphotypes [facility] normal LABORATORY cutaneous leroy (A) Gram Stain Rare White Blood Cells [place] Few Gram Positive Cocci in pairs [place] () [facility] LABORATORY Organism Gram Positive [place] Cocci in pairs [place] () [facility] LABORATORY Specimen Anatomical Collection [...] - GENERAL ORDER ROBSON Performing Organization Address City/[facility]/ZIP Code Phon e Number [address] POCT Glucose (08/09/2017 4:28 AM EST) P athologist Signature POC Glucose 128 65 - 199 [facility] LABORATORY Comment: Supplemental ranges: <140 mg/dL before meals <180 mg/dL all other times of the day Specimen Anatomical Collection Method Collection Time Receive d Time (Source) Location / / Volume Laterality Blood specimen 08/09/2017 4:28 AM 018 4:28 (specimen) EST AM EST Yonathan Smith MD POINT OF CARE TEST ORDERABLE S Performing Organization Address City/[facility]/[place] [address] ABORH Recheck Status (08/09/2017 1:10 AM EST) [facility] gist Method Time Signature ABORH Type Completed [facility] LABORATORY Specimen Anatomical Collection Method Collection Time Receive d Time (Source) Location / / Volume Laterality Blood specimen 08/09/2017 1:10 AM 018 1:35 (specimen) EST AM EST Resulting Agency Comment Spec In Lab Yonathan Smith MD BLOOD BANK ORDERABLES Performing Organization Address City/[facility]/[place] [address] Antibody screen (08/09/2017 1:10 AM EST) [facility] Method Time Signature Ab Screen Negative [facility] LABORATORY Expires at 08/12/2017 [facility] [id number] on: [facility] LABORATORY Specimen Anatomical Collection Method Collection Time Receive d Time (Source) Location / / Volume Laterality Blood specimen 08/09/2017 1:10 AM 018 1:35 (specimen) EST AM EST Resulting Agency Comment Spec In Lab Yonathan Smith MD BLOOD BANK ORDERABLES Performing Organization Address City/[facility]/[place] [address] ABO/Rh Typing (08/09/2017 1:10 [...] [facility]/[place] [address] (ABNORMAL) APTT (08/09/2017 1:10 [...] Organization Address City/State/[place] [address] (ABNORMAL) Differential, Automated (08/09/2017 1:10 AM EST) [facility] gist Method Time Signature Neutrophils % 76.2 % [facility] LABORATORY Neutr Abs (ANC) 8.59 (H) 1.70 - [facility] 6.10 [facility] x10(3)/[facility] LABORATORY Lymphocytes % 11.0 % [facility] LABORATORY Lymphocytes Abs 1.2 0.9 - 3.2 [facility] x10(3)/[facility] LABORATORY Monocytes % 8.4 % [facility] LABORATORY Monocyte Abs 1.0 (H) 0.3 - 0.9 [facility] x10(3)/[facility] LABORATORY Eosinophils % 3.5 % [facility] LABORATORY Eosinophils Abs 0.4 0.0 - 0.4 [facility] x10(3)/[facility] LABORATORY Basophils % 0.5 % [facility] LABORATORY Basophils Abs 0.1 0.0 - 0.1 [facility] x10(3)/[facility] LABORATORY Immature [...] Organization Address City/State/[place] [address] (ABNORMAL) Hemogram (08/09/2017 1:10 AM EST) Analysis Performed At Patho logist Time Signature WBC 11.3 (H) 4.0 - 9.5 [facility](3[facility] LABORATORY RBC 3.47 (L) 4.58 - [facility] 5.54 [facility] x10(6)/[facility] LABORATORY Hemoglobin 10.0 (L) 13.7 - [facility] 16.5 gm/dL [facility] LABORATORY Hematocrit 31.9 (L) 40.5 - [facility] 48.5 % [facility] LABORATORY MCV 91.9 82.9 - [facility] 93.1 [facility] LABORATORY MCH 28.8 27.5 - [facility] 32.1 pg [facility] LABORATORY MCHC 31.3 (L) 32.0 - [facility] 35.7 gm/dL [facility] LABORATORY Platelets 234 145 - 357 [facility] x10(3)/[facility] LABORATORY RDWSD 54.0 (H) 36.0 - [facility] 45.0 [facility] LABORATORY RDWCV 16.2 (H) 11.4 - [facility] 13.8 % [facility] LABORATORY MPV 8.7 7.6 - 12.9 [facility] LABORATORY nRBC % Auto 0.0 % [facility] LABORATORY nRBC Abs Auto 0.000 0.000 - [facility] 0.000 [facility] x10(3)/[facility] LABORATORY Specimen Anatomical Collection Method Collection Time Receive d Time (Source) Location / / Volume Laterality Blood specimen 08/09/2017 1:10 AM 018 1:19 (specimen) EST AM EST Resulting Agency Comment Spec In Lab Yonathan Smith MD HEMATOLOGY ORDERABLES Performing Organization Address City/State/[place] [address] (ABNORMAL) Prothrombin Time (08/09/2017 [...] City/State/ZIP Code Phon e Number [place] [phone] (ABNORMAL) Basic Metabolic Panel (non-fasting) (08/09/2017 1:10 AM EST) athologist Signature Glucose Lvl 108 65 - 199 [facility] mg/dL [facility] LABORATORY Comment: Diabetes: [...] or in patients with acute kidney failure. [email or web address] [email or web address] Specimen Anatomical Collection Method Collection Time Receive d Time (Source) Location / / Volume Laterality Blood specimen 08/09/2017 1:10 AM 018 1:19 (specimen) EST AM EST Resulting Agency Comment Spec In Lab Yonathan Smith MD CHEMISTRY ORDERABLES Performing Organization Address City/[facility]/ZIP Code Phon e Number [address] POCT Glucose (08/09/2017 12:05 AM EST) athologist Signature POC Glucose 128 65 - 199 [facility] mg/dL [facility] LABORATORY Comment: Supplemental ranges: <140 mg/dL before meals <180 mg/dL all other times of the day Specimen Anatomical Collection Method Collection Time Receive d Time (Source) Location / / Volume Laterality Blood specimen 08/09/2017 12:05 8 (specimen) AM EST 12:05 AM EST Yonathan Smith MD POINT OF CARE TEST ORDERABLE S Performing Organization Address City/[facility]/[place] [address] (ABNORMAL) POCT Glucose (08/08/2017 7:36 PM EST) athologist Signature POC Glucose 215 (H) 65 - 199 [facility]/dL [facility] LABORATORY Comment: Supplemental ranges: <140 mg/dL before meals <180 mg/dL all other times of the day Specimen Anatomical Collection Method Collection Time Receive d Time (Source) Location / / Volume Laterality Blood specimen 08/08/2017 7:36 PM 018 7:36 (specimen) EST PM EST Yonathan Smith MD POINT OF CARE TEST ORDERABLE S Performing Organization Address City/[facility]/[place] [address] (ABNORMAL) POCT Glucose (08/08/2017 6:23 PM EST) athologist Signature POC Glucose 216 (H) 65 - 199 [facility] mg/dL [facility] LABORATORY Comment: Supplemental ranges: <140 mg/dL before meals <180 mg/dL all other times of the day Specimen Anatomical Collection Method Collection Time Receive d Time (Source) Location / / Volume Laterality Blood specimen 08/08/2017 6:23 PM 018 6:23 (specimen) EST PM EST Yonathan Smith MD POINT OF CARE TEST ORDERABLE S Performing Organization Address [facility]/[place] [address] (ABNORMAL) APTT (08/08/2017 6:00 [...] Smith MD HEMATOLOGY ORDERABLES Performing Organization Address City/[facility]/[place] [address] POCT Glucose (08/08/2017 4:42 PM EST) athologist Signature POC Glucose 78 65 - 199 [facility] mg/dL [facility] LABORATORY Comment: Supplemental ranges: <140 mg/dL before meals <180 mg/dL all other times of the day Specimen Anatomical Collection Method Collection Time Receive d Time (Source) Location / / Volume Laterality Blood specimen 08/08/2017 4:42 PM 018 4:42 (specimen) EST PM EST Yonathan Smith MD POINT OF CARE TEST ORDERABLE S Performing Organization Address City/State/[place] [address] (ABNORMAL) POCT Glucose (08/08/2017 4:01 PM EST) P athologist Signature POC Glucose 58 (L) 65 - 199 [facility] mg/dL [facility] LABORATORY Comment: Supplemental ranges: <140 mg/dL before meals <180 mg/dL all other times of the day Specimen Anatomical Collection Method Collection Time Receive d Time (Source) Location / / Volume Laterality Blood specimen 08/08/2017 4:01 PM 018 4:01 (specimen) EST PM EST Yonathan Smith MD POINT OF CARE TEST ORDERABLE S Performing Organization Address City/State/[place] [address] POCT Glucose (08/08/2017 11:51 AM EST) P athologist Signature POC Glucose 90 65 - 199 [facility] mg/dL [facility] LABORATORY Comment: Supplemental ranges: <140 mg/dL before meals <180 mg/dL all other times of the day Specimen Anatomical Collection Method Collection Time Receive d Time (Source) Location / / Volume Laterality Blood specimen 08/08/2017 11:51 8 (specimen) AM EST 11:51 AM EST Yonathan Smith MD POINT OF CARE TEST ORDERABLE S Performing Organization Address City/State/ZIP Code Phon e Number [address] (ABNORMAL) APTT (08/08/2017 10:27 [...] Smith MD HEMATOLOGY ORDERABLES Performing Organization Address City/[facility]/ZIP Code Phon e Number [address] POCT Glucose (08/08/2017 8:02 AM EST) athologist Signature POC Glucose 178 65 - 199 [facility] mg/dL [facility] LABORATORY Comment: Supplemental ranges: <140 mg/dL before meals <180 mg/dL all other times of the day Specimen Anatomical Collection Method Collection Time Receive d Time (Source) Location / / Volume Laterality Blood specimen 08/08/2017 8:02 AM 018 8:02 (specimen) EST AM EST Yonathan Smith MD POINT OF CARE TEST ORDERABLE S Performing Organization Address City/[facility]/[place] [address] (ABNORMAL) APTT (08/08/2017 4:51 AM EST) athologist Signature PTT >160 25 - 35 [facility] (Critical) sec [facility] LABORATORY Comment: Called by: HOWARD, Read [...] Address City/State/ZIP [place] [address] (ABNORMAL) Differential, Automated (08/08/2017 4:51 AM EST) [facility] Method Time Signature Neutrophils % 77.9 % [facility] LABORATORY Neutr Abs (ANC) 8.17 (H) 1.70 - [facility] 6.10 [facility] x10(3)/[facility] LABORATORY Lymphocytes % 10.3 % [facility] LABORATORY Lymphocytes Abs 1.1 0.9 - 3.2 [facility] x10(3)/[facility] LABORATORY Monocytes % 7.0 % [facility] LABORATORY Monocyte Abs 0.7 0.3 - 0.9 [facility] x10(3)/[facility] LABORATORY Eosinophils % 3.6 % [facility] LABORATORY Eosinophils Abs 0.4 0.0 - 0.4 [facility] x10(3)/[facility] LABORATORY Basophils % 0.5 % [facility] LABORATORY Basophils Abs 0.0 0.0 - 0.1 [facility] x10(3)/[facility] LABORATORY Immature [...] Gran Abs 0.07 (H) 0.00 - 0.04 x10(3)/[facility] LABORATORY Specimen Anatomical Collection Method Collection Time Receive d Time (Source) Location / / Volume Laterality Blood specimen 08/08/2017 4:51 AM 018 5:14 (specimen) EST AM EST Resulting Agency Comment Spec In Lab Yonathan Smith MD HEMATOLOGY ORDERABLES Performing Organization Address City/State/[place] [address] (ABNORMAL) Hemogram (08/08/2017 4:51 AM EST) Analysis Performed At Patho logist Time Signature WBC 10.5 (H) 4.0 - 9.5 [facility] LABORATORY RBC 3.27 (L) 4.58 - [place] [facility] 5.54 [facility] x10(6)/[facility] LABORATORY Hemoglobin 9.3 (L) 13.7 - [facility] 16.5 gm/dL [facility] LABORATORY Hematocrit 30.3 (L) 40.5 - [facility] 48.[facility] % [facility] LABORATORY MCV 92.7 82.9 - [facility] 93.1 [facility] LABORATORY MCH 28.4 27.5 - [place] [facility] 32.1 pg [facility] LABORATORY MCHC 30.7 (L) 32.0 - [facility] 35.7 gm/dL [facility] LABORATORY Platelets 252 145 - 357 [facility] x10(3)/[facility] LABORATORY RDWSD 54.6 (H) 36.0 - [facility] 45.0 [facility] LABORATORY RDWCV 16.2 (H) 11.4 - [facility] 13.8 % [facility] LABORATORY MPV 9.1 7.6 - 12.9 [facility] LABORATORY nRBC % Auto 0.0 % [facility] LABORATORY nRBC Abs Auto 0.000 0.000 - [facility] 0.000 [facility] x10(3)/[facility] LABORATORY Specimen Anatomical Collection Method Collection Time Receive d Time (Source) Location / / Volume Laterality Blood specimen 08/08/2017 4:51 AM 018 5:14 (specimen) EST AM EST Resulting Agency Comment Spec In Lab Yonathan Smith MD HEMATOLOGY ORDERABLES Performing Organization Address City/State/ZIP Code Phon e Number [place] [phone]OS[address] LAB[address]ORY [address] (ABNORMAL) Prothrombin Time (08/08/2017 [...] Organization Address City/State/[place] [address] (ABNORMAL) Basic Metabolic Panel (non-fasting) (08/08/2017 4:51 AM EST) athologist Signature Glucose Lvl 229 (H) 65 - 199 [facility] mg/dL [facility] LABORATORY Comment: Diabetes: [...] or in patients with acute kidney failure. [email or web address]/DHnkdep [email or web address]/DHMCnkf Specimen Anatomical Collection Method Collection Time Receive d Time (Source) Location / / Volume Laterality Blood specimen 08/08/2017 4:51 AM 018 5:14 (specimen) EST AM EST Resulting Agency Comment Spec In Lab Yonathan Smith MD CHEMISTRY ORDERABLES Performing Organization Address City/[facility] Phon e Number [address] POCT Glucose (08/08/2017 4:20 AM EST) athologist Signature POC Glucose 193 65 - 199 [facility] LABORATORY Comment: Supplemental ranges: <140 mg/dL before meals <180 mg/dL all other times of the day Specimen Anatomical Collection Method Collection Time Receive d Time (Source) Location / / Volume Laterality Blood specimen 08/08/2017 4:20 AM 018 4:20 (specimen) EST AM EST Yonathan Smith MD POINT OF CARE TEST ORDERABLE S Performing Organization Address City/[facility]/ZIP Code Phon e Number [address] POCT Glucose (08/07/2017 11:11 PM EST) P athologist Signature POC Glucose 124 65 - 199 [facility] mg/dL [facility] LABORATORY Comment: Supplemental ranges: <140 mg/dL before meals <180 mg/dL all other times of the day Specimen Anatomical Collection Method Collection Time Receive d Time (Source) Location / / Volume Laterality Blood specimen 08/07/2017 11:11 8 (specimen) PM EST 11:11 PM EST Yonathan Smith MD POINT OF CARE TEST ORDERABLE S Performing Organization Address City/[facility]/[place] [address] (ABNORMAL) APTT (08/07/2017 10:18 [...] Smith MD HEMATOLOGY ORDERABLES Performing Organization Address [facility]/[place] [address] POCT Glucose (08/07/2017 8:10 PM EST) athologist Signature POC Glucose 140 65 - 199 [facility] mg/dL [facility] LABORATORY Comment: Supplemental ranges: <140 mg/dL before meals <180 mg/dL all other times of the day Specimen Anatomical Collection Method Collection Time Receive d Time (Source) Location / / Volume Laterality Blood specimen 08/07/2017 8:10 PM 018 8:10 (specimen) EST PM EST Yonathan Smith MD POINT OF CARE TEST ORDERABLE S Performing Organization Address City/[facility]/ZIP Code Phon e Number [address] POCT Glucose (08/07/2017 5:27 PM EST) athologist Signature POC Glucose 187 65 - 199 [facility] mg/dL [facility] LABORATORY Comment: Supplemental ranges: <140 mg/dL before meals <180 mg/dL all other times of the day Specimen Anatomical Collection Method Collection Time Receive d Time (Source) Location / / Volume Laterality Blood specimen 08/07/2017 5:27 PM 018 5:27 (specimen) EST PM EST Yonathan Smith MD POINT OF CARE TEST ORDERABLE S Performing Organization Address City/[facility]/ZIP Code Phon e Number [address] POCT Glucose (08/07/2017 3:29 PM EST) athologist Signature POC Glucose 86 65 - 199 [facility] mg/dL [facility] LABORATORY Comment: Supplemental ranges: <140 mg/dL before meals <180 mg/dL all other times of the day Specimen Anatomical Collection Method Collection Time Receive d Time (Source) Location / / Volume Laterality Blood specimen 08/07/2017 3:29 PM 018 3:29 (specimen) EST PM EST Yonathan Smith MD POINT OF CARE TEST ORDERABLE S Performing Organization Address [facility] [place] [address] (ABNORMAL) APTT (08/07/2017 2:50 [...] Smith MD HEMATOLOGY ORDERABLES Performing Organization Address City/[facility]/ZIP [facility] [place] [address] (ABNORMAL) POCT Glucose (08/07/2017 2:23 PM EST) athologist Signature POC Glucose 55 (L) 65 - 199 [facility]dL [facility] LABORATORY Comment: Supplemental ranges: <140 mg/dL before meals <180 mg/dL all other times of the day Specimen Anatomical Collection Method Collection Time Receive d Time (Source) Location / / Volume Laterality Blood specimen 08/07/2017 2:23 PM 018 2:23 (specimen) EST PM EST Yonathan Smith MD POINT OF CARE TEST ORDERABLE S Performing Organization Address City/State/ZIP Code Phon e Number [address] POCT Glucose (08/07/2017 12:08 PM EST) P athologist Signature POC Glucose 77 65 - 199 [facility] mg/dL [facility] LABORATORY Comment: Supplemental ranges: <140 mg/dL before meals <180 mg/dL all other times of the day Specimen Anatomical Collection Method Collection Time Receive d Time (Source) Location / / Volume Laterality Blood specimen 08/07/2017 12:08 8 (specimen) PM EST 12:08 PM EST Yonathan Smith MD POINT OF CARE TEST ORDERABLE S Performing Organization Address City/State/[place] [address] (ABNORMAL) Differential, Automated (08/07/2017 7:30 AM EST) Patholo gist Method Time Signature Neutrophils % 73.8 % [facility] LABORATORY Neutr Abs (ANC) 7.17 (H) 1.70 - [facility] 6.10 [facility] x10(3)/[facility] LABORATORY Lymphocytes % 12.2 % [facility] LABORATORY Lymphocytes Abs 1.2 0.9 - 3.2 [facility] x10(3)/[facility] LABORATORY Monocytes % 9.0 % [facility] LABORATORY Monocyte Abs 0.9 0.3 - 0.9 [facility] x10(3)/[facility] LABORATORY Eosinophils % 3.9 % [facility] LABORATORY Eosinophils Abs 0.4 0.0 - 0.4 [facility] x10(3)/[facility] LABORATORY Basophils % 0.6 % [facility] LABORATORY Basophils Abs 0.1 0.0 - 0.1 [facility] x10(3)/[facility] LABORATORY Immature [...] Organization Address City/State/[place] [address] (ABNORMAL) Hemogram (08/07/2017 7:30 AM EST) Analysis Performed At Patho logist Time Signature WBC 9.7 (H) 4.0 - 9.5 [facility] x10(3)/[facility] LABORATORY RBC 3.54 (L) 4.58 - [facility] 5.54 [facility] x10(6)/[facility] LABORATORY Hemoglobin 9.9 (L) 13.7 - [facility] 16.5 gm/dL [facility] LABORATORY Hematocrit 32.3 (L) 40.5 - [facility] 48.5 % [facility] LABORATORY MCV 91.2 82.9 - [facility] 93.1 [facility] LABORATORY MCH 28.0 27.5 - [facility] 32.1 pg [facility] LABORATORY MCHC 30.7 (L) 32.0 - [facility] 35.7 gm/dL [facility] LABORATORY Platelets 312 145 - 357 [facility] x10(3)/[facility] LABORATORY RDWSD 53.2 (H) 36.0 - [facility] 45.0 [facility] RDWCV 16.0 (H) 11.4 - [facility] 13.8 % [facility] LABORATORY MPV 8.9 7.6 - 12.9 [facility] LABORATORY nRBC % Auto 0.0 % [facility] LABORATORY nRBC Abs Auto 0.000 0.000 - [facility] 0.000 [facility] x10(3)/[facility] LABORATORY Specimen Anatomical Collection Method Collection Time Receive d Time (Source) Location / / Volume Laterality Blood specimen 08/07/2017 7:30 AM 018 7:45 (specimen) EST AM EST Resulting Agency Comment Spec In Lab Yonathan Smith MD HEMATOLOGY ORDERABLES Performing Organization Address City/State/[place]IP [place] [address] (ABNORMAL) Basic Metabolic Panel (non-fasting) (08/07/2017 7:30 AM EST) P athologist Signature Glucose Lvl 80 65 - 199 [facility] mg/dL [facility] LABORATORY Comment: Diabetes: [...] or in patients with acute kidney failure. [email or web address] [email or web address] Specimen Anatomical Collection Method Collection Time Receive d Time (Source) Location / / Volume Laterality Blood specimen 08/07/2017 7:30 AM 018 7:45 (specimen) EST AM EST Resulting Agency Comment Spec In Lab Yonathan Smith MD CHEMISTRY ORDERABLES Performing Organization Address City/[facility]/ZIP Code Phon e Number [address] POCT Glucose (08/07/2017 7:27 AM EST) athologist Signature POC Glucose 81 65 - 199 [facility] mg/dL [facility] LABORATORY Comment: Supplemental ranges: <140 mg/dL before meals <180 mg/dL all other times of the day Specimen Anatomical Collection Method Collection Time Receive d Time (Source) Location / / Volume Laterality Blood specimen 08/07/2017 7:27 AM 018 7:27 (specimen) EST AM EST Yonathan Smith MD POINT OF CARE TEST ORDERABLE S Performing Organization Address City/[facility]/ZIP Code Phon e Number [address] APTT (08/07/2017 7:04 AM [...] Smith MD HEMATOLOGY ORDERABLES Performing Organization Address City/[facility]/ZIP Code Phon e Number [address] (ABNORMAL) Prothrombin Time (08/07/2017 [...] Address City/State/ZIP Code Phon e Number [address] POCT Glucose (08/07/2017 4:03 AM EST) athologist Signature POC Glucose 93 65 - 199 [facility]dL [facility] LABORATORY Comment: Supplemental ranges: <140 mg/dL before meals <180 mg/dL all other times of the day Specimen Anatomical Collection Method Collection Time Receive d Time (Source) Location / / Volume Laterality Blood specimen 08/07/2017 4:03 AM 018 4:03 (specimen) EST AM EST Yonathan Smith MD POINT OF CARE TEST ORDERABLE S Performing Organization Address City/State/ZIP Code Phon e Number [address] POCT Glucose (08/07/2017 12:04 AM EST) athologist Signature POC Glucose 107 65 - 199 [facility]dL [facility] LABORATORY Comment: Supplemental ranges: <140 mg/dL before meals <180 mg/dL all other times of the day Specimen Anatomical Collection Method Collection Time Receive d Time (Source) Location / / Volume Laterality Blood specimen 08/07/2017 12:04 8 (specimen) AM EST 12:04 AM EST Yonathan Smith MD POINT OF CARE TEST ORDERABLE S Performing Organization Address City/State/ZIP Code Phon e Number [address] POCT Glucose (08/06/2017 7:56 PM EST) P athologist Signature POC Glucose 178 65 - 199 [facility] mg/dL [facility] LABORATORY Comment: Supplemental ranges: <140 mg/dL before meals <180 mg/dL all other times of the day Specimen Anatomical Collection Method Collection Time Receive d Time (Source) Location / / Volume Laterality Blood specimen 08/06/2017 7:56 PM 018 7:56 (specimen) EST PM EST Yonathan Smith MD POINT OF CARE TEST ORDERABLE S Performing Organization Address City/State/ZIP Code Phon e Number [address] TcPO2 (08/06/2017 2:32 PM EST) Component Value Ref Test Analysis Performed At Patholo gist Range Method Time Signature VB Text Department: Vascular Surgery Lab VASCUBASE Report Patient: [id number] (GREGORY HOANG) CPT: [id number] ICD10: I99.8 Referring Physician: YONATHAN SMITH ?? [...] 81 mg 0823 (Given - Provider: Chiquis umñoz RN) 0800 (Given - Provider: Dory Truong [...] Chiquis Mcgrath RN)2022 (Given - Provider: Mira Turong RN) 0800 (Given - Provider: Dory Truong [...] Henrique Marks RN)1715 (Given - Provider: Chiquis cMgrath RN) 0631 (Given - Provider: Mira Truong, [...]
Routine documented in this encounter Care Teams Hide And Skin Fleshing Machine Operator Relationship Specialty Start Date End Date Lovely Vicente MD PCP - General 04/16/[address] [place] [address] documented as of this encounter
--- OUTSIDE RECORDS SUMMARY | 2022-04-29 08:14 | XMS_ITS | Encounter Summary ---
:1945 [place] [address] Care Team Providers Name Role Phone Lovely Vicente MD Primary Care Provider Encounter Details Date Type Department Care Team Description 08/04/2017 Notes Only Cardiac Surgery Makayla Wilson APRN [facility] [place] [address] CARDIAC SURGERY [phone] [place], [place] [address] (Wo rk) Social History Tobacco [...] Zulma Dolan MD [facility] [place], [place] [address] (Wo rk) 05/28/2022 Laboratory Appointment Lab 05/28/2022 Office Visit Cardiology Zulma Dolan MD [facility] [place] [address] Liz Poole PA [facility] [place] [address] 06/10/2022 Office Visit Dermatology Laura Scherer MD [facility] [address] [place], [place] [address] (Wo rk) documented as of this encounter Visit Diagnoses Not on filedocumented in this encounter Care Teams Herbarium Curator Relationship Specialty Start Date End Date Lovely Vicente MD PCP - General 04/16/[address] [place] [address] documented as of this encounter
--- OUTSIDE RECORDS SUMMARY | 2022-04-29 08:14 | XMS_ITS | Encounter Summary ---
:1945 [place] [address] Care Team Providers Name Role Phone Lovely Vicente MD Primary Care Provider Encounter Details Date Type Department Care Team Description 08/05/2017 Notes Only Vascular Surgery at [facility] [place], [place] [address] VASCULAR SURGERY [phone] [place], [place] [address] (Wo rk) Social History Tobacco [...] Cardiology Zulma Dolan MD [facility] [place], [place] [address] (Wo rk) 05/28/2022 Laboratory Appointment Lab 05/28/2022 Office Visit Cardiology Zulma Dolan MD [facility] [place] [address] Liz Poole PA [facility] [place] [address] 06/10/2022 Office Visit Dermatology Laura Scherer MD [facility] [address] [place], [place] [address] (Wo rk) documented as of this encounter Visit Diagnoses Not on filedocumented in this encounter Care Teams R&D Engineer Relationship Specialty Start Date End Date Lovely Vicente MD PCP - General 04/16/[address] [facility] [address] [place] [address] documented as of this encounter
--- OUTSIDE RECORDS SUMMARY | 2022-04-29 08:14 | XMS_ITS | Encounter Summary ---
:1945 Author Organization [facility] [place] [address] Care Team Providers Name Role Phone Lovely Vicente MD Primary Care Provider Reason for Visit Auth/Cert Specialty Diagnoses / Procedures Referred By Contact Refer red To Contact Diagnoses Critical lower limb ischemia CELLULITIS RT FOOT Procedures EMERGENCY Referral ID Status Reason Start Date Expiration Date Visits Requ ested Visits Authorized [id number] 1 1 Encounter Details Date Type Department Care Team Description 08/04/2017 [facility] En[place] [facility] Danette Maxwell Incisional pain [address] [place] [address] Dr Gomes, SMALL MACHINE BINDERY OPERATOR [facility] [id number] CARDIOLOGY [place], [place] [address] Social History Tobacco Use [...] Cardiology Zulma Dolan MD [facility] [place], [place] [address] (Wo rk) 05/28/2022 Laboratory Appointment Lab 05/28/2022 Office Visit Cardiology Zulma Dolan MD [facility] [place] [address] Liz Poole PA [facility] [place] [address] 06/10/2022 Office Visit Dermatology Laura Scherer MD [facility] [address] [place], [place] [address] (Wo rk) [...] original. EXAMINATION: XR CHEST PA AND LATERAL ([employer]) CLINICAL HISTORY: Checking sternal stabi lity/assess wires [...] Daniele gutiérrez 08/04/2017 4:13 PM Danette Maxwell SMALL MACHINE BINDERY OPERATOR IMG DX ORDERABLES documented in this encounter Visit Diagnoses Diagnosis Incisional pain Disturbance of skin sensation documented in this encounter Care Teams Stripper Opaquer Relationship Specialty Start Date End Date Lovely Vicente MD PCP - General 04/16/[address] [place] [address] documented as of this encounter
--- OUTSIDE RECORDS SUMMARY | 2022-04-29 08:15 | XMS_ITS | Encounter Summary ---
:1945 [place] [address] Care Team Providers Name Role Phone Lovely Vicente MD Primary Care Provider Reason for Visit Reason Comments Hospital Transfer cold foot post CABG Auth/Cert Specialty Diagnoses / Procedures Referred By Contact Refer red To Contact Diagnoses Critical lower limb ischemia Procedures NAYE IPI Referral ID Status Reason Start Date Expiration Date Visits Requ ested Visits Authorized [id number] 1 1 Encounter Details Date Type Department Care Team Description 07/20/2017 Hospital Encounter 4 Herminia Ibarra MD [facility] [place] [address] [facility] Arik Clement MD [facility] [place] [address] [place] [address] Social History Tobacco Use Types Packs/Day Years [...] home. Important Studies and Lab Data: Labs: [facility] Lab Results Component Value Date INR 1.5 [...] For any problems or questions please call [phone] ZELDA Smith, chocolate dipper Nurse Clinician For issues on weeknights after 5pm and weekends please call [phone] and ask for the Vascular Fellow logistics solution manager. General Instructions None Future Appointments and Orders Future Appointments Provider Department Dept Phone 08/04/2017 1:00 PM Daniele Mooney [place] [facility] [phone] 08/04/2017 2:15 PM Arik Clement MD [facility] Surgery [facility] [phone] 09/07/2017 3:00 PM MAYRA CHACON Lab [facility] [phone] 09/07/2017 4:00 PM Luz Prescott MD [facility]ocrinology [facility] [phone] Future Orders Complete By Expires Arterial Duplex Leg, Unil [VAS32 Custom] 07/27/2017 (Approximate) 01/26/2018 Process Instructions: There is no in-house vascular laborer operator available on weeknights (5pm-8am), weekends, or holidays. IF THIS IS A REQUEST FOR AN EMERGENT STUDY DURING THOSE HOURS, please have the senior provider responsible for the patient page the Vascular Surgery Fellow/Senior Resident logistics solution manager to discuss options. Scheduling Instructions: Questions: Indication for study/signs & symptoms: Right femoral PSA s/p cardiac cath Question to be answered: bloodflow to PSA Laterality: Right Is there a RIGHT LOWER EXTREMITY graft?: No Lower limb right segments: Common Femoral Is there a stent?: No At which location will this be performed?: [facility] Referral to Home Health - at DISCHARGE [CMV6325 CPT(R)] As directed Process Instructions: Scheduling Instructions: Comments: DOCUMENTATION FOR VNA SERVICES (INCLUDING THOSE PATIENTS WITH MEDICARE COVERAGE REQUIRING HOME VNA SERVICES AND/OR HOSPICE SERVICES) PATIENT'S LOCATION: Gregory Fatima [address] [place] [address] [place] [id number] (home) Cell: Telephone Information: Sales Ledger Administrator's Name: self In discussion with the attending physician, it is certified that this patient is under their care and that they, or a Nurse Practitioner,Clinical Nurse specialist or Physician Arabic Professor who is working directly with them, had [...] (Central Intake for [place] [employer]-is in [place] PHONE: [phone] FAX: [phone] Start of care: 24- 48 hours FOR [...] patient'sPCP: Lovely Vicente MD [address] [facility] / [place] [id number] All VNA agencies which cover the area [...] For any problems or questions please call [phone] ZELDA Smith, chocolate dipper Nurse Clinician For issues on weeknights after 5pm and weekends please call [phone] and ask for the Vascular Fellow logistics solution manager. 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 A letter describing our affiliations was reviewed with them and theywere educated about their right to choose where referrals are placed. Patient requests referral to [facility] everyArt. PHONE: [phone] FAX: [phone]. Expected date of discharge: 07/20/2017 . Referral routed to the Mechanical Detailer for matching with agency/vendor and to provide any required information. 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 A letter describing our affiliations was reviewed with them and theywere educated about their right to choose where referrals are placed. Patient requests referral to [facility] (Central Intake for [place] [employer]- is in [facility] PHONE: [phone] FAX: [phone]. Expected date of discharge: 07/20/2017 . Referral routed to the Mechanical Detailer for matching with agency/vendor and to provide any required information. Katina Pulliam RNfilter pulp washer Janneth Lee MD - 07/20/2017 7:29 AM [...] MD at [facility] MA[facility] OR Functional Status/Social Hx: [...] -ISS -pain control Discussed with Vascular Fellow logistics solution manager. Chris Valadez MD PGY2 Pager [phone] documented in this encounter ED Notes Annita Reaves MD - 07/20/2017 3:15 PM EST Emergency Department Gregory Fatima is a 72 y.o. male who presents to [facility] with arterial thrombosis. History of Present Illness [...] 04/05/2013 Hospitalizations Within the Past 30 Days: [facility] 07/05/17 Anticipated Length Of Stay (If known): [...] Health/Prescription Coverage: Primary Insurance: MEDICARE Secondary Insurance: [employer] [facility] Prescription Coverage: See above Preferred Pharmacy: [facility] Other: N/A Primary Care Provider: Lovely Vicente MD [phone] Patient/Caregiver Goals of Treatment: Patient plans to return home when medically ready Potential Needs for Transition of Care: Rehab/SNF: N/A Home Health: Yasmani Munguia ([facility] [place] [employer]-is in [place] PHONE: [phone] FAX: [phone] DME: N/A Dialysis: N/A Community Resources: N/A Transportation: Patient family will transport Other: N/A Anticipated Barriers to Discharge/Special Considerations: None Plan: Patient plans to return home with home health services when medically ready A member of the Care Management team will continue to monitor progress, follow for continuity of care and assist with transition of care planning. Naty Pulliam, RN Pager: [phone] ED Triage - Rayna Weir RN - 07/20/2017 12:28 AM EST Pt transferred from [place] for blue right foot and painful toes. [...] Dolan MD [facility] [address] [place], [place] [address] (Wo rk) 05/28/2022 Laboratory Appointment Lab 05/28/2022 Office Visit Cardiology Zulma Dolan [place] [address] Liz Poole PA [facility] [place] [address] 06/10/2022 Office Visit Dermatology Laura Scherer MD [facility] DR [address], [place] [address] (Wo rk) documented as of this encounter Procedures Procedure Name Priority Date/Time Associated Comments Diagnosis TECHNOLOGY SPECIALIST SCAN 09/02/2017 12:00 Res ults for this [...] TO LAB EST procedure are i n ([facility]) the results section. [...] documented in this encounter Results SCAN DOC: TECHNOLOGY SPECIALIST (09/02/2017 12:00 AM EST) Narrative 09/02/2017 12:00 AM EST This result has an attachment that is no t available. Ordered by an unspecified provider. Scanning Provider MEDIA MGR SCAN EXT ORDR/RSLT POCT Glucose (07/20/2017 12:04 PM EST) P athologist Signature POC Glucose 189 65 - 199 [facility] mg/dL [facility] Comment: [...] Address City/State/Z[place] [address] (ABNORMAL) Differential, Automated (07/20/2017 10:34 AM EST) Patholo gist Method Time Signature Neutrophils % 84.3 % [facility] Neutr Abs (ANC) 14.27 (H) 1.70 - [facility] 6.10 [facility] x10(3)/[facility] LABORATORY Lymphocytes % 5.6 % [facility] Lymphocytes Abs 1.0 0.9 - 3.2 [facility] x10(3)/[facility] LABORATORY Monocytes % 6.1 % [facility] Monocyte Abs 1.0 (H) 0.3 - 0.9 [facility] x10(3)/[facility] LABORATORY Eosinophils % 2.4 % [facility] Eosinophils Abs 0.4 0.0 - 0.4 [facility] x10(3)/[facility] LABORATORY Basophils % 0.5 % [facility] Basophils Abs 0.1 0.0 - 0.1 [facility] x10(3)/[facility] LABORATORY Immature Gran % 1.10 % [facility] Comment: Immature [...] Address City/State/ZIP [place] [address] (ABNORMAL) Hemogram (07/20/2017 10:34 AM EST) Analysis Performed At Patho logist Time Signature WBC 17.0 (H) 4.0 - 9.5 [facility] x[facility](3[facility] LABORATORY RBC 3.70 (L) 4.58 - [facility] 5.54 [facility] x10(6)/[facility] LABORATORY Hemoglobin 10.8 (L) 13.7 - [facility] 16.5 gm/dL [facility] Hematocrit 33.4 (L) 40.5 - [facility] 48.5 % [facility] MCV 90.3 82.9 - [facility] 93.[address] [facility] LABORATORY MCH 29.2 27.5 - [facility] RYAN 32.1 pg [facility] MCHC 32.3 32.0 - [facility] RYAN 35.7 gm/dL [facility] Platelets 211 145 - 357 [facility] x10(3)/[facility] LABORATORY RDWSD 49.1 (H) 36.0 - [facility] RYAN 45.[address] [facility] LABORATORY RDWCV 14.7 (H) 11.4 - [facility] RYAN 13.8 % [facility] MPV 9.2 7.6 - 12.9 [facility] nRBC % Auto 0.0 % [facility] nRBC Abs Auto 0.000 0.000 - [place] RYAN 0.000 [facility] x10(3)/[facility] LABORATORY Specimen Anatomical Collection Method Collection Time Receive d Time (Source) Location / / Volume Laterality Blood specimen 07/20/2017 10:34 7 (specimen) AM EST 10:39 AM EST Resulting Agency Comment Spec In Lab Arik Clement MD HEMATOLOGY ORDERABLES Performing Organization Address City/State/[place] [address] (ABNORMAL) APTT (07/20/2017 10:34 AM EST) athologist Signature PTT 79 (H) 25 - 35 sec [facility] Comment: The recommended therapeutic range for fu ll dose, unfractionated heparin at [facility] is 80 ? 114 seconds. The use [...] Clement MD HEMATOLOGY ORDERABLES Performing Organization Address City/[facility]/ZIP [place] [address] POCT Glucose (07/20/2017 7:41 AM EST) athologist Signature POC Glucose 174 65 - 199 [facility] mg/dL [facility] Comment: [...] [facility]/ZIP Code Phon e Number [address] JULIAN, legs, multiple levels (07/20/2017 7:33 AM EST) Component Value Ref Test Analysis Performed At Patholo gist Range Method Time Signature VB Text Department: Vascular Surgery Lab VASCUBASE Report Patient: [id number] (GREGORY FATIMA) CPT: 86344 ICD10: I75.021;I99.8 Referring Physician: ARIK CLEMENT ?? [...] Value Ref Test Analysis Performed At [facility] Range Method Time Signature VB Text Department: Vascular Surgery Lab VASCUBASE Report Patient: [id number] (GREGORY FATIMA) CPT: 07029 ICD10: I97.610;I99.8 Referring Physician: ARIK CLEMENT ?? [...] Signature POC Glucose 199 65 - 199 [facility] mg/dL [facility] Comment: Supplemental ranges: <140 mg/dL before meals <180 mg/dL all other times of the day Specimen Anatomical Collection Method Collection Time Receive d Time (Source) Location / / Volume Laterality Blood specimen 07/20/2017 3:41 AM 017 3:41 (specimen) EST AM EST Arik Clement MD POINT OF CARE TEST ORDERABLE S Performing Organization Address City/[facility]/ZIP [facility] [place] [address] Lactate, whole blood, send to lab (Leb/CGP) (07/20/2017 2:25 AM EST) athologist Signature Lactate WB 2.0 0.5 - 2.2 [facility] mmol/L [facility] Specimen Anatomical Collection Method Collection Time Receive d Time (Source) Location / / Volume Laterality Blood specimen Venous Draw / 07/20/2017 2:25 AM 2016 2:37 (specimen) Unknown EST AM EST Resulting Agency Comment Spec In Lab Zulma Samuel MD CHEMISTRY ORDERABLES Performing Organization Address City/[facility] Code Phon e Number [address] (ABNORMAL) APTT (07/20/2017 2:25 AM EST) athologist Signature PTT 36 (H) 25 - 35 sec [facility] Comment: The recommended therapeutic range for fu ll dose, unfractionated heparin at [facility] is 80 ? 114 seconds. The use [...] Reaves MD HEMATOLOGY ORDERABLES Performing Organization Address City/[facility]/ZIP [place] [address] (ABNORMAL) Prothrombin Time (07/20/2017 [...] Address City/State/ZIP [place] [address] (ABNORMAL) Basic Metabolic Panel (non-fasting) (07/20/2017 2:25 AM EST) P athologist Signature Glucose Lvl 187 65 - 199 [facility] mg/dL [facility] Comment: Diabetes: >=200 mg/dL plus symp toms BUN 35 (H) 10 - 20 mg/dL [facility] Creatinine 1.51 (H) 0.80 - 1.50 mg/dL [facility] Sodium 134 (L) 135 - 145 mmol/L [facility] Potassium Not Perf 3.5 - 5.0 mmol/L [facility] Comment: Specimen hemolyzed. Called by: [facility], Read back by: Chitra Oranets, Date/Time:07/20/17 03:05. Please note: ??Patients with WBC >100,00 0 may have falsely elevated Potassium levels. ??For accurate Potassium quantif ication in these patients send serum separator tube (gold top) for subsequent determinations. ??Contact the Clinical Chemistry Laboratory if there are any qu estions. Chloride 92 (L) 98 - 107 mmol/L [facility] CO2 29 22 - 31 mmol/L [facility] Anion Gap 13 5 - 15 mmol/L [facility] Calcium 8.6 8.5 - 10.5 mg/dL [facility] Estimated GFR 46 (L) >=60 [facility] Comment: The reported eGFR should be multiplied b y 1.2 for patients. The MDRD is not an appropriate measure o f renal function for patients with body mass extremes or in patients with acute kidney failure. http://Travador/DHnkdep http://Travador/DHMCnkf Specimen Anatomical Collection Method Collection Time Receive d Time (Source) Location / / Volume Laterality Blood specimen 07/20/2017 2:25 AM 017 2:33 (specimen) EST AM EST Resulting Agency Comment Spec In Lab Annita Reaves MD CHEMISTRY ORDERABLES Performing Organization Address City/State/ZIP Code Phon e Number [place] [id number] documented in this encounter [...] required aPTT - Per Protocol, Routine, Indication: Other (document in comments field):, Comments: critical limb ischemia HYDROmorphone (DILAUDID) injection 0.5 m g Given [...] Group 2) 0-8,000 Units, Intravenous, BOLUS PER [facility] PROTOCOL, Starting Wed07/20/17 at 0424, Until [...]
Routine documented in this encounter Care Teams Braddisher Relationship Specialty Start Date End Date Lovely Vicente MD PCP - General 04/16/[address] [place] [address] documented as of this encounter
--- OUTSIDE RECORDS SUMMARY | 2022-04-29 08:15 | XMS_ITS | Encounter Summary ---
:1945 Author Organization [facility] [place] [address] Care Team Providers Name Role Phone Lovely Vicente MD Primary Care Provider Reason for Visit Reason Onset Date Comments Other 07/22/2017 lovenox bridge Encounter Details Date Type Department Care Team Description 07/22/2017 Telephone Cardiology at [facility] Court Cadena RN Other (lovenox bridge) [place] [address] Social History Tobacco Use Types Packs/Day [...] 4:49 PM EST VAMSI Del Castillo, at [facility], called earlier today with a question re: lovenox bridge for this patient who was recently discharged from [facility] r/t a blood clot. Discharge note faxed to [facility] (fax# [phone], Ph#: [phone]) which contains instructions r/t lovenox bridge as follows: Anticoagulation: on lovenox bridge to therapeutic coumadin for AFib. Goal INR 2-3. At discharge INR=1.5. The lovenox injections can stop when INR >2, coumadin will continue indefinitely. documented in this encounter Plan of Treatment Upcoming Encounters Date Type Specialty Care Team Description 05/28/2022 Appointment Cardiology Zulma Dolan MD [facility] [place], [place] [address] (Wo rk) 05/28/2022 Laboratory Appointment Lab 05/28/2022 Office Visit Cardiology Zulma Dolan MD [facility] [place] [address] Liz Poole PA [facility] [place] [address] 06/10/2022 Office Visit Dermatology Laura Scherer MD [facility] [address] [place], [place] [address] (Wo rk) documented as of this encounter Visit Diagnoses Not on filedocumented in this encounter Care Teams Assistant Track And Field Coach Relationship Specialty Start Date End Date Lovely Vicente MD PCP - General 04/16/15 [facility] [address] [place] [address] documented as of this encounter
--- OUTSIDE RECORDS SUMMARY | 2022-04-29 08:15 | XMS_ITS | Encounter Summary ---
:1945 Author Organization [facility] [place] [address] Care Team Providers Name Role Phone Lovely Vicente MD Primary Care Provider Encounter Details Date Type Department Care Team Description 07/24/2017 Telephone Vascular Surgery Melba Bob [facility] [place] [address] [facility] [phone] VASCULAR SURGERY [place], [place] [address] (Wo rk) Social History Tobacco [...] was discharged on Coumadin. ??He presented to [facility] on 07/20 with mottled toes on the [...] [facility] [address] [place] [address] (Wo rk) 05/28/2022 Laboratory Appointment Lab 05/28/2022 Office Visit Cardiology Zulma Dolan MD [facility] [place] [address] Liz Poole PA [facility] [place] [address] 06/10/2022 Office Visit Dermatology Laura Scherer MD [facility] DR [address] [place], [place] [address] (Wo rk) documented as of this encounter Visit Diagnoses Not on filedocumented in this encounter Care Teams Account Manager Education Relationship Specialty Start Date End Date Lovely Vicente MD PCP - General 04/16/[address] [place] [address] documented as of this encounter
--- OUTSIDE RECORDS SUMMARY | 2022-04-29 08:15 | XMS_ITS | Encounter Summary ---
:1945 Author Organization [facility] Address [facility] [place] [address] Care Team Providers Name Role Phone Lovely Vicente MD Primary Care Provider Encounter Details Date Type Department Care Team Description 07/29/2017 Transcribe Orders Laboratory Lovely Vicente, Coronary artery rupture; [facility] Ischemic cardiomyopathy; [facility] [address] Atherosclerosis of belkofski co ronary artery, angina presence unspecified, unspecified whether belkofski or transplanted heart; [place], [place] [address] Essential hypertension, malignant; [id number] [place], [place] 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, unspecified shelter insulin use status [phone] [id number] Social History Tobacco Use Types Packs/Day Years [...] Dolan MD [facility] er [address] [place], [place] [address] (Wo rk) 05/28/2022 Laboratory Appointment Lab 05/28/2022 Office Visit Cardiology Zulma Dolan MD [facility] [place] [address] Liz Poole PA [facility] [place] [address] 06/10/2022 Office Visit Dermatology Laura Scherer MD [facility] ER [address] [place], [place] [address] (Wo rk) Scheduled Orders Name Type Priority Associated Diagnoses Order S chedule Lab Use Only, Fax Lab Routine Coronary arter y rupture Expected: 07/29/2017 Request Ischemic cardiom yopathy (Approximate), Atherosclerosis of belkofski Ex jose: 07/29/2018 coronary artery, angina presence unspecified, unspecified whether belkofski or transplanted heart Essential hypertension, malignant documented as of this encounter Results Uric acid (08/04/2017 12:55 PM EST) P athologist Signature Uric Acid 7.1 3.5 - 8.5 [facility] mg/dL [facility] LABORATORY Specimen Anatomical Collection Method Collection Time Receive d Time (Source) Location / / Volume Laterality Blood specimen 08/04/2017 12:55 8 1:01 (specimen) PM EST PM EST Resulting Agency Comment Spec In Lab Lovely Vicente MD CHEMISTRY ORDERABLES Performing Organization Address City/State/[place] [address] (ABNORMAL) Hemogram (08/04/2017 12:55 PM EST) Analysis Performed At Patho logist Time Signature WBC 15.8 (H) 4.0 - 9.5 [facility] x10(3)/[facility] LABORATORY RBC 3.48 (L) 4.58 - [facility] 5.54 [facility] x10(6)/[facility] LABORATORY Hemoglobin 9.9 (L) 13.7 - [facility] 16.5 gm/dL [facility] LABORATORY Hematocrit 31.4 (L) 40.5 - KATALINA DAVIS 48.5 % [facility] LABORATORY MCV 90.2 82.9 - [facility] 93.1 [facility] LABORATORY MCH 28.4 27.5 - [place] RYAN 32.1 pg [facility] LABORATORY MCHC 31.5 (L) 32.0 - [place] ZHAORYAN 35.7 gm/dL [facility] LABORATORY Platelets 310 145 - 357 [facility] x10(3)/[facility] LABORATORY RDWSD 51.8 (H) 36.0 - [place] RYAN 45.0 [facility] LABORATORY RDWCV 15.8 (H) 11.4 - [facility] 13.8 % [facility] LABORATORY MPV 8.9 7.6 - 12.9 [facility] LABORATORY nRBC % Auto 0.0 % [facility] LABORATORY nRBC Abs Auto 0.000 0.000 - [facility] 0.000 [facility] x10(3)/[facility] LABORATORY Specimen Anatomical Collection Method Collection Time Receive d Time (Source) Location / / Volume Laterality Blood specimen 08/04/2017 12:55 8 1:01 (specimen) PM EST PM EST Resulting Agency Comment Spec In Lab Lovely Vicente MD HEMATOLOGY ORDERABLES Performing Organization Address City/State/ZIP Code Phon e Number [place] [id number] (ABNORMAL) Comprehensive metabolic panel (non-fasting) (08/04/2017 12:55 PM EST) P athologist Signature Glucose Lvl 208 (H) 65 - 199 [facility] mg/dL [facility] LABORATORY Comment: Diabetes: >=200 mg/dL plus symp toms BUN 32 (H) 10 - 20 mg/dL [facility] LABORATORY Creatinine 1.58 (H) 0.80 [...] LABORATORY AST 20 0 - 39 unit/L [facility] LABORATORY ALT 21 0 - 55 unit/L [facility] LABORATORY Alk Phos 93 40 - 120 unit/L [facility] LABORATORY Total Bilirubin 0.4 0.2 - 1.3 mg/dL [facility] LABORATORY Estimated GFR 43 (L) >=60 [facility] LABORATORY Comment: The reported eGFR should be multiplied b y 1.2 for patients. The MDRD is not an appropriate measure o f renal function for patients with body mass extremes or in patients with acute kidney failure. http://Respiratory Motion/DHnkdep http://Respiratory Motion/DHMCnkf Specimen Anatomical Collection Method Collection Time Receive d Time (Source) Location / / Volume Laterality Blood specimen 08/04/2017 12:55 8 1:01 (specimen) PM EST PM EST Resulting Agency Comment Spec In Lab Lovely Vicente MD CHEMISTRY ORDERABLES Performing Organization Address City/State/[place] [address] (ABNORMAL) Hemoglobin A1c (08/04/2017 [...] Avg Gluc See note mg/dL [place] DAV[facility] LABORATORY Comment: Estimated Average Glucose not [...] hemoglobinopathies. Additional resources are available on [facility] ADA website. Macario HAMMOND, Ruthann J, Deysi R, et al. ??Tr anslating the A1C assay into estimated average glucose values. ??Diabetes Care 2008:31(8):9426-5233. Specimen Anatomical Collection Method Collection Time Receive d Time (Source) Location / / Volume Laterality Blood specimen 08/04/2017 12:55 8 1:01 (specimen) PM EST PM EST Resulting Agency Comment Spec In Lab Lovely Vicente MD CHEMISTRY ORDERABLES Performing Organization Address City/State/[place] [address] (ABNORMAL) Prothrombin Time (08/04/2017 [...] Organization Address City/State/[place] [address] documented in this encounter Visit Diagnoses Diagnosis Coronary artery rupture Acute myocardial infarction, unspecified site, episode of care unspecified Ischemic cardiomyopathy Other specified forms of chronic ischemi c heart disease Atherosclerosis of belkofski coronary arter y, angina presence unspecified, unspecified whether belkofski or transplanted heart Essential hypertension, malignant Diabetes mellitus due to underlying cond ition with diabetic nephropathy, unspecified shelter insulin use status documented in this encounter Care Teams Records Specialist Relationship Specialty Start Date End Date Lovely Vicente MD PCP - General 04/16/[address] [place] [address] documented as of this encounter
--- OUTSIDE RECORDS SUMMARY | 2022-04-29 08:15 | XMS_ITS | Encounter Summary ---
:1945 [place] [address] Care Team Providers Name Role Phone Lovely Vicente MD Primary Care Provider Encounter Details Date Type Department Care Team Description 07/16/2017 Telephone Endocrinology at [facility] Manuela Holliday, [facility] [place] [address] ENDOCRINOLOGY DEPT [phone] [place], [place] [address] (Wo rk) Social History Tobacco [...] Dolan MD [facility] [address] [place], [place] [address] (Wo rk) 05/28/2022 Laboratory Appointment Lab 05/28/2022 Office Visit Cardiology Zulma Dolan MD [facility] [place] [address] Liz Poole PA [facility] [place] [address] 06/10/2022 Office Visit Dermatology Laura Scherer MD [facility] DR [address] [place], [place] [address] (Wo rk) documented as of this encounter Visit Diagnoses Not on filedocumented in this encounter Care Teams Automatic Operator Relationship Specialty Start Date End Date Lovely Vicente MD PCP - General 04/16/[address] [place] [address] documented as of this encounter
--- OUTSIDE RECORDS SUMMARY | 2022-04-29 08:15 | XMS_ITS | Encounter Summary ---
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 [...] SETUP performed by Manny Mcknight MD at [facility] OR ??? PRO CABG, ARTERIAL, SINGLE N/A 07/07/2017 @CABG, USING ARTERIAL GRAFT;SINGLE ARTERIAL GRAFT (WRVU 33.75) performed by Yuan Retana MD at [facility] OR ??? PRO CABG, ARTERY-VEIN, TWO N/A 07/07/2017 @CABG, TWO VENOUS GRAFTS & ARTERIAL GRAFT (WRVU 7.93) performed by Yuan Retana MD at [facility] OR ??? PRO COLONOSCOPY, REMFlash MOCK, SNARE 01/16/2014 COLONOSCOPY, POLYPECTOMY, REMOVAL LESION BY SNARE performed by Nohemi Jaimes MD at [facility] ENDOSCOPY ??? PRO ENDOSCOPY W/VIDEO-ASST VEIN HARVEST, CABG Right 07/07/2017 ENDOSCOPIC HARVEST VEIN(S) FOR CABG (WRVU 0.31) performed by Yuan Retana MD at [facility] OR ??? 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 Hank Zhang Vascular Surgery, PGY2 Pager #[phone] Associated attestation - Arik Clement MD - [...] Zulma Dolan MD [facility] [place], [place] [address] (Wo rk) 05/28/2022 Laboratory Appointment Lab 05/28/2022 Office Visit Cardiology Zulma Dolan MD [facility] [place] [address] Liz Poole PA [facility] [place] [address] 06/10/2022 Office Visit Dermatology Laura Scherer MD [facility] DR [address] [place], [place] [address] (Wo rk) documented as of [...] Component Value Ref Test Analysis Performed At [facility] Range Method Time Signature VB Text Department: Vascular Surgery Lab VASCUBASE Report Patient: [id number] (GREGORY FATIMA) CPT: 69783 ICD10: I82.541 Referring Physician: TAMIKO JIMÉNEZ ?? [...] [facility] mg/dL [facility] Comment: Supplemental ranges: <140 mg/dL before meals <180 mg/dL all other times of the day Specimen Anatomical Collection Method Collection Time Receive d Time (Source) Location / / Volume Laterality Blood specimen 07/29/2017 2:28 PM 018 2:28 (specimen) EST PM EST Tamiko Jiménez MD POINT OF CARE TEST ORDERABLE S Performing Organization Address City/State/ZIP Code Phon e Number [address] (ABNORMAL) D-Dimer, Quantitative (07/29/2017 2:15 PM EST) [facility] SwipeGood Method Time Signature D-Dimer, Quant 1,699 (H) 0 - 500 [facility] FEU ng/ml [facility] Comment: The D-Dimer assay is [...] City/State/[place] [address] (ABNORMAL) Differential, Automated (07/29/2017 2:15 PM EST) [facility] SwipeGood Method Time Signature Neutrophils % 82.5 % [facility] LABORATORY Neutr Abs (ANC) 10.21 (H) 1.70 - [facility] 6.10 [facility] x10(3)/[facility] L LABORATORY Lymphocytes % 7.1 % [facility] LABORATORY Lymphocytes Abs 0.9 0.9 - 3.2 [facility] x10(3)/[facility] LABORATORY Monocytes % 6.5 % [facility]OR[facility]ORY Monocyte Abs 0.8 0.3 - 0.9 [facility] x10(3)/[facility] LABORATORY Eosinophils % 2.7 % [facility]OR[facility]ORY Eosinophils Abs 0.3 0.0 - 0.4 [facility] x10(3)/[facility] LABORATORY Basophils % 0.6 % [facility]ORATORY Basophils Abs 0.1 0.0 - 0.1 [facility] x10(3)/[facility] LABORATORY Immature Gran % 0.60 % [...] Gran Abs 0.08 (H) 0.00 - 0.04 x10(3)/[facility] LABORATORY Specimen Anatomical Collection Method Collection Time Receive d Time (Source) Location / / Volume Laterality Blood specimen 07/29/2017 2:15 PM 018 2:36 (specimen) EST PM EST Resulting Agency Comment Spec In Lab Tamiko Jiménez MD HEMATOLOGY ORDERABLES Performing Organization Address City/State/[place] [address] (ABNORMAL) Hemogram (07/29/2017 2:15 PM EST) Analysis Performed At Patho logist Time Signature WBC 12.4 (H) 4.0 - 9.5 [facility] x10(3)/[facility] LABORATORY RBC 4.17 (L) 4.58 - [facility] 5.54 [facility] x10(6)/[facility] LABORATORY Hemoglobin 12.1 (L) 13.7 - [facility] 16.5 gm/dL [facility] LABORATORY Hematocrit 38.1 (L) 40.5 - [facility] 48.5 % [facility] LABORATORY MCV 91.4 82.9 - [facility] 93.1 [facility] LABORATORY MCH 29.0 27.5 - [facility] 32.1 pg [facility] LABORATORY MCHC 31.8 (L) 32.0 - [facility] RYAN 35.7 gm/dL [facility] LABORATORY Platelets 204 145 - 357 [facility] x10(3)/[facility] LABORATORY RDWSD 50.5 (H) 36.0 - [facility] 45.0 [facility] LABORATORY RDWCV 15.3 (H) 11.4 - [facility] RYAN 13.8 % [facility] LABORATORY MPV 9.4 7.6 - 12.9 [facility] LABORATORY nRBC % Auto 0.0 % [facility] LABORATORY nRBC Abs Auto 0.000 0.000 - [facility] 0.000 [facility] x10(3)/[facility] LABORATORY Specimen Anatomical Collection Method Collection Time Receive d Time (Source) Location / / Volume Laterality Blood specimen 07/29/2017 2:15 PM 018 2:36 (specimen) EST PM EST Resulting Agency Comment Spec In Lab Tamiko Jiménez MD HEMATOLOGY ORDERABLES Performing Organization Address City/State/[place] [address] (ABNORMAL) Prothrombin Time (07/29/2017 2:15 PM EST) P athologist Signature PT 24.4 (H) 11.8 - 14.0 [facility] LABORATORY INR 2.2 (H) 0.9 - 1.1 [facility] LABORATORY [...] Organization Address City/State/ZIP Code Phon e Number [place] [id number] Arterial Duplex Leg, Unil (07/29/2017 11:50 AM EST) Component Value Ref Test Analysis Performed At [facility] Range Method Time Signature VB Text Department: Vascular Surgery Lab VASCUBASE Report Patient: [id number] (GREGORY FATIMA) CPT: 37190 ICD10: Z09;I97.610 Referring Physician: TAMIKO JIMÉNEZ ?? [...] Component Value Ref Test Analysis Performed At [facility] Range Method Time Signature VB Text Department: Vascular Surgery Lab VASCUBASE Report Patient: [id number] (GREGORY FATIMA) CPT: 12310 ICD10: I82.441 Referring Physician: TAMIKO JIMÉNEZ ?? [...] he calf. Notification: Marquis Pathak MD (pager #[phone]) was notif ied of the preliminary findings. [...] STAT documented in this encounter Care Teams Rotary Kiln Operator Relationship Specialty Start Date End Date Lovely Vicente MD PCP - General 04/16/[address] [place] [address] [address] [place] [address] documented as of this encounter
--- OUTSIDE RECORDS SUMMARY | 2022-04-29 08:15 | XMS_ITS | Encounter Summary ---
:1945 [place] [address] Care Team Providers Name Role Phone Lovely Vicente MD Primary Care Provider Reason for Visit Reason Onset Date Comments Questions 07/16/2017 fluid retention Encounter Details Date Type Department Care Team Description 07/16/2017 Telephone Cardiology at [facility] Martha Comer, Questions ([facility] RN retention ) [place] [address] Social History Tobacco Use Types Packs/Day [...] the direct number to the HF team ([phone]). She is aware of his appt with PRIVATE EQUITY ASSOCIATE Hans on 07/21/17 and the need for labs prior to that visit. verbalized good understanding of the current POC. documented in this encounter Plan of Treatment Upcoming Encounters Date Type Specialty Care Team Description 05/28/2022 Appointment Cardiology Zulma Dolan MD [facility] [address] [place], [place] [address] (Wo rk) 05/28/2022 Laboratory Appointment Lab 05/28/2022 Office Visit Cardiology Zulma Dolan MD [facility] [place] [address] Liz Poole PA [facility] [place] [address] 06/10/2022 Office Visit Dermatology Laura Scherer MD [facility] DR [address] [place], [place] [address] (Wo rk) documented as of this encounter Visit Diagnoses Not on filedocumented in this encounter Care Teams Motor Coach Chauffeur Relationship Specialty Start Date End Date Lovely Vicente MD PCP - General 04/16/[address] [place] [address] documented as of this encounter
--- OUTSIDE RECORDS SUMMARY | 2022-04-29 08:15 | XMS_ITS | Encounter Summary ---
:1945 Author Organization [facility] [place] [address] Care Team Providers Name Role Phone Lovely Vicente MD Primary Care Provider Reason for Visit Reason Comments Foot Pain Auth/Cert Specialty Diagnoses / Procedures Referred By Contact Refer red To Contact Diagnoses Ischemic foot Procedures NAYE OBSVO Referral ID Status Reason Start Date Expiration Date Visits Requ ested Visits Authorized [id number] 1 1 Encounter Details Date Type Department Care Team Description 07/27/2017 Emergency [address] [facility] Lokesh Swenson MD [facility] [address] [place] [address] Femoral artery pseudo-aneurysm, right; [facility] Tam Bauman MD [facility] [place] [address] [place] [address] Social History Tobacco Use Types Packs/Day [...] Gregory Fatima Patient Age: 72 y.o. Language: Citizen Of [place] Race: White Ethnicity: Not nor Admit date: [...] please contact your inpatient physician through the [facility] [place] [facility] Sorter . Issues after hours and on weekends [...] RLE critical limb ischemia, who presented to [facility] with worsening RLE pain. Pt post-op course after CABG was significant for paroxysmal Afib, and he was started on Coumadin given elevated [id number] score. 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 He [...] in the last 7068 hours. Invalid input(s): [id number] Recent Labs 07/08/17 0400 07/07/17 0515 07/06/17 [...] (it was low at 1.6 here at [facility]) 7. Use the tramadol if dilaudid or tylenol is not working 8. Stop taking the potassium supplement - your blood potassium level was elevated. Ask your doctors at future visits if this should be restarted. 9. Antibiotic for 5 days recommended by cardiothoracic surgery for chest wound drainage Follow-Up Appointments Vascular surgery as previously schedule Your Inpatient Doctor(s) at [facility] [place]: CARLOS ALBERTO ROSALES MD General Instructions None Future Appointments and Orders Future Appointments Provider Department Dept Phone 07/30/2017 8:30 AM OSWALDO, THREE L Lab 3L [facility] [phone] 07/30/2017 9:40 AM Danette Maxwell APRN [facility] [place] [phone] 08/04/2017 1:00 PM Daniele Mooney [place] V[facility] [place] [phone] 08/04/2017 2:15 PM Arik Clement MD Vascular Surgery at [place] [phone] 08/11/2017 10:00 AM [facility] ROOM 2 XRay at [place] [phone] Please go to [place] Operator Area 3T ([place] Location). 08/11/2017 11:00 AM Yuan Retana MD Cardiac Surgery at [place] [phone] 09/07/2017 3:00 PM LAB, THREE L Lab 3L [facility] [phone] 09/07/2017 4:00 PM Luz Prescott MD Endocrinology at [place] [phone] Discharge References/Attachments None documented in this encounter [...] (it was low at 1.6 here at [facility]) 3. Use the tramadol if dilaudid or tylenol is not working 4. Stop taking the potassium supplement - your blood potassium level was elevated. Ask your doctors at future visits if this should be restarted. 5. Antibiotic for 5 days recommended by cardiothoracic surgery for chest wound drainage Follow-Up Appointments Vascular surgery as previously schedule Your Inpatient Doctor(s) at [facility] [place]: CARLOS ALBERTO ROSALES MD documented in this [...] Gas) No results found for: PHART, PO2ART, CGB8BDK Assessment/Plan: 72 y.o. male s/p CABG in [...] intervention: Education Nutrition Recommendations: Recommend continuation of [facility], CHO2 diet order Patient and denied need [...] Orders Diet Daily Healthy Menu Choices/Cardiac diet ([facility] [place]-Diet) 60/ CHO counting level 2 Frequency: Effective Now Number of Occurrences: Until Specified Admit Weight: 83.92 kg Estimated body mass index is 28.13 kg/(m^2) as calculated from the following: Height as of this encounter: 172.7 cm (5' 8). Weight as of this encounter: 83.9 kg (185 lb). [place] body weight: 68.4 kg (150 lb 12.7 [...] RLE critical limb ischemia, who presented to [facility] [place] with worsening RLE pain. Visited with patient [...] spent >30 minutes (Day of Discharge Code 54022) involved in the final examination of the [...] Melanoma ID: 72 y.o. Male presents to [facility] with persistent pain b/l lower extremities History of Present Illness: HPI 72 y.o. male with PMH ASCVD s/p CABG (07/07/17), MARIA VICTORIA on CPAP QHS, HTN, HLD, DM2, with recent hospitalization for RLE critical limb ischemia, who presented to [facility] with worsening RLE pain. Pt post-op course after CABG was significant for paroxysmal Afib, and he was started on Coumadin given elevated [id number] score. 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 He [...] MD at [facility] MAIN OR Prior To Admission Medications: [...] Procedure Component Value Units Date/Time Blood culture [[id number]] Collected: 07/09/1739 Lab Status: Final result Specimen: Blood from Arm, Right Updated: 07/14/17701 Blood Culture No growth at 5 days. Blood culture [[id number]] Collected: 07/09/170 Lab Status: Final result Specimen: [...] limb ischemia following CABG, who presented to [facility] [place] ED from home with persistent B/L LE [...] continued Diet Daily Healthy Menu Choices/Cardiac diet ([facility] [place]-Diet) 60/60/75 CHO counting level 2Cardiac, low salt, CHO 2 Discharge planning Pending improvement in pain control PT/OT/Speech PT ordered Lines/Access PIV Ocasio catheter No DVT/GI Prophylaxis Lovenox bridge to Coumadin, SCD. Code status Full Code Family PCP Lovely Vicente MD [phone] Attestation Please see my note for details [...] x3 on 07/07/17),HTN, HLD, DM II, MARIA VICTOIRA (on CPAP) who presents to the Emergency [...] encounter Miscellaneous Notes Plan of Care - [place]-Joyce Damian, PT - 07/27/2017 3:26 PM EST [...] Anticipated Discharge Disposition: home with assist Pager: [phone] JOYCE KING, PT Inpatient Physical Therapy 2017 [...] patient's evaluation including the following functional test(s) [facility]. Current ability measures, co-morbidities and clinical [...] a lovenox bridge. Mr. Fatima returns to [facility] ED tonight because of ongoing pain in [...] MD at [facility] MAIN OR MEDICATIONS: No current facility-administered [...] ?? Left ? Pressure (mm Hg) ?? JUILAN ??Waveform ?TBI ?? Common Femoral Artery ?Triphasic [...] up in clinic 1-2 weeks after discharge. [facility] Vascular Surgery Plan of Care [...] Cardiology Zulma Dolan MD [facility] [place], [place] [address] (Wo rk) 05/28/2022 Laboratory Appointment Lab 05/28/2022 Office Visit Cardiology Zulma Dolan MD [facility] [place] [address] Liz Poole PA [facility] [place] [address] 06/10/2022 Office Visit Dermatology Laura Scherer MD [facility] [address], [place] [address] (Wo rk) documented as [...] section. TYPE AND SCREEN STAT 07/27/2017 12:53 ([facility] [place]/CGP/SHANDA) AM EST BASIC METABOLIC PANEL STAT 07/27/2017 12:53 Re sults for this (NON-FASTING) AM EST procedure are in the results section. documented in this encounter Results POCT Glucose (07/27/2017 11:53 AM EST) P athologist Signature POC Glucose 175 65 - 199 [facility] mg/dL [facility] [...] Organization Address City/State/[place] [address] Arterial Duplex Leg, Unil (07/27/2017 7:40 AM EST) Component Value Ref Test Analysis Performed At Patholo gist Range Method Time Signature VB Text Department: Vascular Surgery Lab VASCUBASE Report Patient: [id number] (GREGORY FATIMA) CPT: 19780 ICD10: I97.610;I72.4;Z09 Referring Physician: TAM BAUMAN ?? [...] Signature POC Glucose 96 65 - 199 [facility] mg/dL [facility] Comment: Supplemental ranges: <140 mg/dL before meals <180 mg/dL all other times of the day Specimen Anatomical Collection Method Collection Time Receive d Time (Source) Location / / Volume Laterality Blood specimen 07/27/2017 6:51 AM 018 6:51 (specimen) EST AM EST Tam Bauman MD POINT OF CARE TEST ORDERABLE S Performing Organization Address City/[facility]/ZIP [facility] Phon e Number [address] ABORH Recheck Status (07/27/2017 12:53 AM EST) Patholo gist Method Time Signature ABORH Type Completed [facility] LABORATORY Specimen Anatomical Collection Method Collection Time Receive d Time (Source) Location / / Volume Laterality Blood specimen 07/27/2017 12:53 8 (specimen) AM EST 12:58 AM EST Resulting Agency Comment Spec In Lab Angela Swenson MD BLOOD BANK ORDERABLES Performing Organization Address City/[facility]/[place] [address] Gold Tube HOLD (07/27/2017 12:53 AM EST) P athologist Signature Gold Hold Sample in [facility]. [facility] Specimen Anatomical Collection Method Collection Time Receive d Time (Source) Location / / Volume Laterality Blood specimen Venous Draw / 07/27/2017 12:53 07/27/19 18 1:01 (specimen) Unknown AM EST AM EST Angela Swenson MD CHEMISTRY ORDERABLES Performing Organization Address City/State/[place] [address] (ABNORMAL) Differential, Automated (07/27/2017 12:53 AM EST) Patholo gist Method Time Signature Neutrophils % 75.0 % [facility] Neutr Abs (ANC) 11.30 (H) 1.70 - [facility] [address] [facility] x10(3)/[facility] LABORATORY Lymphocytes % 9.9 % [facility] Lymphocytes Abs 1.5 0.9 - 3.2 [facility] x10(3)/[facility] LABORATORY Monocytes % 8.6 % [facility] Monocyte Abs 1.3 (H) 0.3 - 0.9 [facility] x10(3)/[facility] LABORATORY Eosinophils % 4.8 % [facility] Eosinophils Abs 0.7 (H) 0.0 - 0.4 [facility] x10(3)/[facility] LABORATORY Basophils % 0.8 % [facility] Basophils Abs 0.1 0.0 - 0.1 [facility] x10(3)/[facility] LABORATORY [...] Abs 0.13 (H) 0.00 - 0.04 x10(3)/[facility] LABORATORY Specimen Anatomical Collection Method Collection Time Receive d Time (Source) Location / / Volume Laterality Blood specimen 07/27/2017 12:53 8 1:00 (specimen) AM EST AM EST Resulting Agency Comment Spec In Lab Angela Swenson MD HEMATOLOGY ORDERABLES Performing Organization Address City/State/[place] [address] (ABNORMAL) Hemogram (07/27/2017 12:53 AM EST) Analysis Performed At Patho logist Time Signature WBC 15.0 (H) 4.0 - 9.5 [facility] x[facility](3[facility] LABORATORY RBC 3.59 (L) 4.58 - [facility] [address] [facility] x10(6)/[facility] LABORATORY Hemoglobin 10.3 (L) 13.7 - [facility] 16.5 gm/dL [facility] Hematocrit 32.6 (L) 40.5 - [facility] 48.5 % [facility] MCV 90.8 82.9 - [facility] 93.1 [facility] LABORATORY MCH 28.7 27.5 - [facility] RYAN 32.1 pg [facility] MCHC 31.6 (L) 32.0 - [facility] 35.7 gm/dL [facility] Platelets 322 145 - 357 [facility] x10(3)/[facility] RDWSD 48.7 (H) 36.0 - [facility] RYAN 45.0 [facility] LABORATORY RDWCV 14.7 (H) 11.4 - [facility] RYAN 13.8 % [facility] MPV 8.9 7.6 - 12.9 [facility] LABORATORY nRBC % Auto 0.0 % [facility] nRBC Abs Auto 0.000 0.000 - [facility] RYAN [address] [facility] x10(3)/[facility] LABORATORY Specimen Anatomical Collection Method Collection Time Receive d Time (Source) Location / / Volume Laterality Blood specimen 07/27/2017 12:53 8 1:00 (specimen) AM EST AM EST Resulting Agency Comment Spec In Lab Angela Swenson MD HEMATOLOGY ORDERABLES Performing Organization Address City/State/[place] [address] Antibody screen (07/27/2017 12:53 AM EST) Patholo gist Method Time Signature Ab Screen Negative [facility] LABORATORY Expires at 07/30/2017 KATALINA ZHAORYAN [id number] on: [facility] Specimen Anatomical Collection Method Collection Time Receive d Time (Source) Location / / Volume Laterality Blood specimen 07/27/2017 12:53 8 (specimen) AM EST 12:58 AM EST Resulting Agency Comment Spec In Lab Angela Swenson MD BLOOD BANK ORDERABLES Performing Organization Address City/[facility]/[place] [address] ABO/Rh Typing (07/27/2017 12:53 AM EST) P athologist Signature ABORh Type O Pos [facility] LABOR[facility]ORY Specimen Anatomical Collection Method Collection Time Receive d Time (Source) Location / / Volume Laterality Blood specimen 07/27/2017 12:53 8 (specimen) AM EST 12:58 AM EST Resulting Agency Comment Spec In Lab Angela Swenson MD BLOOD BANK ORDERABLES Performing Organization Address City/[facility] [place] [address] (ABNORMAL) Prothrombin Time (07/27/2017 12:53 AM EST) P athologist Signature PT 19.1 (H) 11.8 - 14.0 [facility] [...] Organization Address City/State/[place] [address] (ABNORMAL) Basic Metabolic Panel (non-fasting) (07/27/2017 12:53 AM EST) athologist Signature Glucose Lvl 95 65 - 199 [facility] mg/dL [facility] Comment: Diabetes: >=200 mg/dL plus symp toms BUN 37 (H) 10 - 20 mg/dL [facility]ORY Creatinine 1.49 0.80 - 1.50 mg/dL [facility] LABORATORY Sodium 137 135 - 145 mmol/L [facility]ORY Potassium 5.1 (H) 3.5 - 5.0 mmol/L [facility] [...] mg/dL [facility] Estimated GFR 46 (L) >=60 [facility] Comment: The reported eGFR should be multiplied b y 1.2 for patients. The MDRD is not an appropriate measure o f renal function for patients with body mass extremes or in patients with acute kidney failure. 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
Routine documented in this encounter Care Teams Communicable Disease Specialist Relationship Specialty Start Date End Date Lovely Vicente MD PCP - General 04/16/15 [facility] [address] [facility] [address] [place] [address] documented as of this encounter
--- OUTSIDE RECORDS SUMMARY | 2022-04-29 08:15 | XMS_ITS | Encounter Summary ---
:1945 Author Organization [facility] [place] [address] Care Team Providers Name Role Phone Lovely Vicente MD Primary Care Provider Reason for Visit Reason Comments Follow-up Encounter Details Date Type Department Care Team Description 07/29/2017 Office Visit Cardiac Surgery at [facility] Yuan Retana MD S/P CABG x [address] [facility] [place] [address] CARDIOTHORACIC SURGERY [phone] [place], [place] [address] (Wo rk) Social History Tobacco [...] evaluation by vascular surgery. Yuan Retana MD [phone] documented in this encounter Plan of Treatment Upcoming Encounters Date Type Specialty Care Team Description 05/28/2022 Appointment Cardiology Zulma Dolan MD [facility] er Dr [place] [address] (Wo rk) 05/28/2022 Laboratory Appointment Lab 05/28/2022 Office Visit Cardiology Zulma Dolan MD [facility] [place] [address] Liz Poole PA [facility] [place] [address] 06/10/2022 Office Visit Dermatology Laura Scherer MD [facility] ER [address] [place], [place] [address] (Wo rk) documented as of this encounter Visit Diagnoses Diagnosis S/P CABG x 3 Postsurgical aortocoronary bypass status documented in this encounter Care Teams Spinner Box Relationship Specialty Start Date End Date Lovely Vicente MD PCP - General 04/16/[address] [place] [address] documented as of this encounter
--- OUTSIDE RECORDS SUMMARY | 2022-04-29 08:16 | XMS_ITS | Encounter Summary ---
:1945 Author Organization [facility] [place] [address] Care Team Providers Name Role Phone Lovely Vicente MD Primary Care Provider Encounter Details Date Type Department Care Team Description 07/08/2017 Orders Only [facility] [place] [address] Social History Tobacco Use Types Packs/Day [...] [facility] [place], [place] [address] (Wo rk) 05/28/2022 Laboratory Appointment Lab 05/28/2022 Office Visit Cardiology Zulma Dolan MD [facility] [place] [address] Liz Poole PA [facility] [place] [address] 06/10/2022 Office Visit Dermatology Laura Scherer MD [facility] ER [address] [place] [address] (Wo rk) documented as of this encounter [...] Mccollum ? (Age): 1945(72y) Med Rec#: ? [id number] ?Sex: ?M ? Site Loc: ? Ht / Wt: ??(cm)/ (kg) ? Pt. Loc: ? Study Date: ?? 07/07/2017 ?Pt. Type: Tape: ? Referring: Yuan Retana Reading: Yifan Perez MD ([id number]) Performing: Yifan Perez MD ([id number]) Diagnosis: SUMMARY: 1. Intraoperative AVELINO performed at the [facility] of Dr. Mike for the diagnosis [...] ? Mid-Inferior ?Hypokinetic ? Mid-Inferoseptal ?Hypokinetic ? Merlin-Septal ? Hypokinetic ? Merlin-Anterior ? Hypokinetic ? Merlin-Lateral ?Hypokinetic ? Merlin-Inferior ? Hypokinetic ? Merlin-Tip ?Not Seen ? This report has been electronically sign ed by: _ Yifan Perez MD ? 07/08/2017 12 :25:18 Images reviewed and interpretation verif ied [facility] Cardiac Ultrasound Laboratory Procedure Note Yifan Perez MD - 07/08/2017Formatt ing of this note might be different from the original. Procedure: Transesophageal Echocardiogra m Patient: NATALYA MCBRIDE(Age): [birth year]72y) Med Rec#: [id number] Sex: M Site Loc: Ht / Wt: (cm)/ (kg) Pt. Loc: Study Date: 07/07/2017 Pt. Type: Tape: Referring: Yuan Retana Reading: Yifan Perez MD ([id number]) Performing: Yifan Perez MD ([id number]) Diagnosis: SUMMARY: 1. 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
--- OUTSIDE RECORDS SUMMARY | 2022-04-29 08:16 | XMS_ITS | Encounter Summary ---
:1945 Author Organization [facility] [place] [address] Care Team Providers Name Role Phone Lovely Vicente MD Primary Care Provider Reason for Referral Consultation (Routine) - Closed Specialty Diagnoses / Referred By Contact Referred To Contact Procedures Cardiac Rehabilitation Diagnoses S/P CABG x 3 Yuan Webber, Cardiac Rehab, [address] [place] CARDIOTHORACIC [address] [place] [address] Referral ID Status Reason Start Date Expiration Date Visits V isits Requested Authorized [id number] Closed Consult, 07/14/2017 01/10/2018 36 36 Test & Treat Reason for Visit Auth/Cert Specialty Diagnoses / Procedures Referred By Contact Refer red To Contact Diagnoses STEMI (ST elevation myocardial infarction) NSTEMI STEMI Procedures CARDIAC CATHETERIZATION NAYE IPI Referral ID Status Reason Start Date Expiration Date Visits Requ ested Visits Authorized [id number] 1 1 Encounter Details Date Type Department Care Team Description 07/05/2017 - Hospital Encounter Cardiac Special Daphne Shahid MD [facility] [place] [address] Non-ST elevation myocardial infarction ( NSTEMI); 07/14/2017 Care Unit Yuan Preciado MD [facility] [place] [address] S/P CABG x 3 [place] [id number] Social History Tobacco Use Types Packs/Day Years [...] Patient Age: 72 y.o. Birthdate: 1945 Language: Egyptian Race: White Ethnicity: Not nor Admit Date: [...] , @ 1:20p Patient to follow-up with Cinnamon Grinder/heart failure team in one week. An appointment will be made for you. You may call [phone] Patient to follow-up with Cardiac Surgery, Dr. Yuan Webber, in ~ 4 weeks with CXR, EKG. Inpatient Provider Contact Information: [facility] Section of Cardiac Surgery [facility] [phone] FAX [phone] Discharge Diagnoses (Hospital Problems) Primary Diagnoses: CAD [...] performed by Yuan Webber MD at [facility] MAIN OR ??? PRO CABG, ARTERY-VEIN, TWO N/A 07/07/2017 @CABG, TWO VENOUS GRAFTS & ARTERIAL GRAFT (WRVU 7.93) performed by Yuan Webber MD at [facility] MAIN OR ??? PRO COLONOSCOPY, REMV LESN, SNARE 01/16/2014 COLONOSCOPY, POLYPECTOMY, REMOVAL LESION BY SNARE performed by Nohemi Jaimes MD at [facility] ENDOSCOPY ??? PRO ENDOSCOPY W/VIDEO-ASST VEIN HARVEST, CABG Right 07/07/2017 ENDOSCOPIC HARVEST VEIN(S) FOR CABG (WRVU 0.31) performed by Yuan Webber MD at [facility] MAIN OR ??? PRO THYROIDECTOMY 03/28/2013 THYROIDECTOMY, TOTAL OR COMPLETE performed by Manny Mcknight MD at [facility] MAIN OR Prior To Admission Medications Prescriptions Prior to Admission Medication Sig Dispense Refill Last Dose ??? levothyroxine (SYNTHROID) 175 mcg Tablet Take 1 tablet by mouth daily. 90 tablet 3 07/05/2017 [id number] ??? ascorbic acid, vitamin C, (VITAMIN C) [...] Hoang was admitted to [facility] on 07/05/2017 via the Cardiology Service. During his hospital course, he was taken emergently to the laborer bituminous paving for an ongoing STEMI. An IABP was [...] not take or discontinue any prescription or gbjm-ucl-nkhuuaf medications without asking your doctor or pharmacist [...] Yuan Webber and/or the Cardiac Surgery Physician Gasoline Catalyst Operator Team may be reached at . [...] Dr. Yuan Webber. You may use a Bryan Track or treadmill but avoid any pulling [...] friends, go to a movie, go to rastafarian, etc. Heavy activities: No hunting, skiing, jogging, snow shoveling, snowmobiling, lawn mowing, swimming, golf or tennis until after your return appointment with the surgeon. Do not ride motorcycles, [employer]'s tractors or horses. Avoid the use of [...] , @ 1:20p Patient to follow-up with Cinnamon Grinder/heart failure team in one week. Appointment will be made for you. You may call [phone] Patient to follow-up with Cardiac Surgery, Dr. [...] THREE L Lab 3L [facility] [phone] 09/07/2017 4:00 PM Luz Prescott MD Endocrinology at [place] [phone] Future Orders Complete By Expires EKG 12 Lead [EKG1 Custom] 08/14/2017 02/13/2018 Process Instructions: Scheduling Instructions: Questions: Which location will this be performed?: [place] Is a rhythm strip needed?: No If EKG Reason is Pre-op Evaluation, indicate diagnosis for surgery.: XR Chest PA & Lateral (Generic) [[id number] Custom] 08/14/2017 02/13/2018 Process Instructions: Scheduling Instructions: Questions: Where will study be performed?: [place] [facility] Portable exam?: Reason for exam and clinical history: CABG x 3 Other pertinent information: Stat read required?: Date of injury if applicable: Requested Time: Referral to Cardiac Rehab [RQB691 Custom] As directed Process Instructions: If no progress note charted, please enter Clinical details in comments. Scheduling Instructions: Questions: My question or request is: s/p CABG. Cardiac rehab at [facility] Referral to Home Health - at DISCHARGE [FVT8502 CPT(R)] As directed Process Instructions: Scheduling Instructions: Comments: DOCUMENTATION FOR VNA SERVICES (INCLUDING THOSE PATIENTS WITH MEDICARE COVERAGE REQUIRING HOME VNA SERVICES AND/OR HOSPICE SERVICES) PATIENT'S LOCATION: Gregory Hoang [address] [place] [address] [place] [id number] (home) Telephone Information: Studio Operations Engineer In Charge's Name: self In discussion with the attending physician, it is certified that this patient is under their care and that they, or a Nurse Practitioner, or Physician Gasoline Catalyst Operator who is working directly with them, [...] ([facility] [place] [facility] in [place]) PHONE: [phone] FAX: [phone] RN orders: Cardiopulmonary assessment, incisional assessment, assess vital signs, assessment of rehab progress, medication management and effectiveness, home safety evaluation. Please draw INR if indicated and send result to:Dr Vicente [phone] PT ORDERS: Continue rehab for endurance, gait stability and strength with mobility and transfers. Home safety evaluation. Home exercise program if appropriate. Start of Care Date:24-48 hours after discharge SPECIAL INSTRUCTIONS: For any follow up questions, needs, or issues please call the Cardiac Surgery Office at [phone] FOR MEDICARE ONLY: (please delete this section [...] OR AFTER 07/17/2017 Signed: Martha Teague APRN [facility] Section of Cardiac Surgery [facility] [phone] FAX [phone] Date: 07/14/2017 CC: MD Ivania Cr Betsy, PA [address] [place] [phone] documented in this encounter Discharge Instructions Discharge [...] not take or discontinue any prescription or ustj-utu-tjvigvt medications without asking your doctor or pharmacist [...] juice or regular (not diet) soda 6 [employer] small box of raisins 4 glucose tablets [...] Yuan Webber and/or the Cardiac Surgery Physician Gasoline Catalyst Operator Team may be reached at . [...] Dr. Yuan Webber. You may use a Bryan Track or treadmill but avoid any pulling [...] friends, go to a movie, go to rastafarian, etc. ?? Heavy activities: No hunting, skiing, jogging, snow shoveling, snowmobiling, lawn mowing, swimming, golf or tennis until after your return appointment with the surgeon. Do not ride motorcycles, [employer] tractors or horses. Avoid the use of [...] @ 1:20p ?? Patient to follow-up with Cinnamon Grinder/heart failure team in one week. An appointment has been made for you, you can call [phone] ?? Patient to follow-up with Cardiac Surgery, [...] THREE L Lab 3L [facility] [phone] ?? 09/07/2017 4:00 PM Luz Prescott MD Endocrinology at [place] [phone] Future Orders Complete By Expires ?? EKG 12 Lead [EKG1 Custom] 08/14/2017 02/13/2018 ?? Process Instructions: ? Scheduling Instructions: ? Questions: ? Which location will this be performed?: [place] ?? Is a rhythm strip needed?: No ?? If EKG Reason is Pre-op Evaluation, indicate diagnosis for surgery.: ?? XR Chest PA & Lateral (Generic) [[id number] Custom] 08/14/2017 02/13/2018 ?? Process Instructions: ? Scheduling Instructions: ? Questions: ? Where will study be performed?: [place] [facility] ?? Portable exam?: ?? Reason for exam and clinical history: CABG x 3 ?? Other pertinent information: ?? Stat read required?: ?? Date of injury if applicable: ?? Requested Time: ?? Referral to Cardiac Rehab [CVF584 Custom] As directed ? Process Instructions: ?? [...] 07/14/2017 2:34 PM EST The patient/sales representative cash registers has been provided a list of Home Health Agencies/DME vendors which serve their preferred geographic area. A letter describing our affiliations was reviewed with them and theywere educated about their right to choose where referrals are placed. Patient requests referral to [facility] PHONE: [phone] FAX: [phone] Expected date of discharge: 07/14 Referral routed to the Blacksmith Assistant for matching with agency/vendor and to [...] Carrera APRN [facility] Diabetes Management Pager [phone] minutes of this 35 minute visit was spent with the patient in counseling on diabetes and treatment plan, reviewing all glucose and insulin data as well as relevant laboratory results with the patient, and coordination of care on the inpatient unit including nursing and primary team. Zulma Andres, RN - 07/14/2017 10:30 AM EST The patient/sales representative cash registers has been provided a list of Home Health Agencies/DME vendors which serve their preferred geographic area. A letter describing our affiliations was reviewed with them and theywere educated about their right to choose where referrals are placed. Patient requests referral to : Yasmani Munguia ([facility] [place] [facility]-is in [place]) PHONE: [phone] FAX: [phone]. Expected date of discharge: 07/14/17 Referral routed to the Blacksmith Assistant for matching with agency/vendor and to [...] hours. If BG remains greater than 240, ljjzio87 units (no more than three times) &??call [...] Azul APRN [facility] Diabetes Management Pager [phone] minutes of this 25 minute visit [...] of infiltration/extravasation Discussed plan of care with SOIL SCIENTIST and RN. Elevate exrtemity and apply intermittent Warm compresses. Name of MD contacted Dr. Shaw Brown 07/13/2017 @ 0675 Name of RN contacted Ale Rangel RN Name of Pharmacist if consulted NA Name of Plastics MD ( if consulted) NA (Mandatory photo for infiltrations/ extravasations scoring a stage 2 or greater, but recommended forstage 1)( include measuring tape and identifier in the photo) HAND SPINNER CARING FOR THIS PATIENT WILL CONTINUE TO [...] measuring tape and identifier in the photo) HAND SPINNER CARING FOR THIS PATIENT WILL CONTINUE TO [...] AM EST Cardiac Surgery Progress Note: ID: [id number] 72 year old male POD#6 s/p CABGx3 [...] I have met with the patient/sales representative cash registers to discuss discharge planning needs. I have provided the [facility], Office of Care Management letter from the Ocular Care Technician pertaining to rehab referrals. I have also provided a letter describing our affiliations within the [facility] and educated them about their right to choose where referrals are placed. ?? I reviewed the different levels of rehab including SNF, swing, acute and LTAC with the patient/sales representative cash registers. ?? The patient/sales representative cash registers has been provided a list of facilities within their preferred geographic area. ?? I have requested that the patient/sales representative cash registers provide at least three choices for referral. ?? The patient/sales representative cash registers have requested referrals to: ?? 1. . ?? 2. [facility] ?? 3. More to be entered ?? Expected date of discharge: 07/14 Note routed to Blacksmith Assistant who will communicate referrals to facilities [...] hours. If BG remains greater than 240, uhrtbt36 units (no more than three times) & [...] STACIE Azul [facility] Diabetes Management Pager [phone] 20 minutes of this 35 minute visit was spent with the patient in counseling on diabetes and treatment plan, reviewing all glucose and insulin data as well as relevant laboratory results with the patient, and coordination of care on the inpatient unit including nursing and primary team. Makayla Stevenson APRN - 07/12/2017 9:52 AM EST Cardiac Surgery Progress Note: ID: [id number] 72 year old male POD#5 s/p CABGx3 [...] 07/11/2017 7:18 PM EST Patient arrived from [facility]. VSS. MSI dressing pulled off with [...] hours. If BG remains greater than 240, [id number] units (no more than three times) & [...] AM EST Cardiac Surgery Progress Note: ID: [id number] 72 year old male POD#4 s/p CABGx3 [...] hours. If BG remains greater than 240, yhkxjr67 units (no more than three times) & [...] AM EST Cardiac Surgery Progress Note: ID: [id number] 72 year old male POD#3 s/p CABGx3 [...] Gas) No results found for: PHART, PO2ART, FBA1LDV Assessment/Plan: 72 year old male POD#3 s/p [...] Encounter Note Patient Name: Gregory Hoang : [id number] MR#: [id number] Admit Date: 07/05/2017 4:20 PM Hospital Day 4 days Narrative: Patient was sitting in chair, hugging heart pillow, opened his eyes, nodding to come into room Assessment: Patient was sleepy. Intervention and Outcome: Introduced field consultant services and patient reached his hand out in appreciation. Follow-up: Millwork Estimator remains available for support. Time in Direct [...] AM EST Cardiac Surgery Progress Note: ID: [id number] 72 year old male POD#2 s/p CABGx3 [...] TPW, meds CT, L pleural CT, ROXANA coasio LABS: Recent Labs 07/09/17 0230 07/08/17 0840 [...] rounds. Signed: STEPHANIE Iqbal [facility] Section of Cardiac Surgery Date: 07/09/2017 Magnolia Santiago [facility] - 07/09/2017 1:[address] ICU [...] when IABP d/c'ed. Gretchen [place], PT Pager [phone] Maddison Cee PA - 07/08/2017 11:27 AM EST Cardiac Surgery Progress Note: ID: [id number] 72 year old male POD#1 s/p CABGx3 [...] rounds. Signed: STEPHANIE Iqbal [facility] Section of Cardiac Surgery Date: [...] unit. NICK SEGAL MD 07/08/2017 Jay Munoz [facility] - 07/08/2017 4:[address] Surgery [...] R femoral. No hematoma. ASSOCIATE PROFESSOR OF THEATRE- Intact Psych- Anxious Skin- Dry, no peripheral [...] place in R femoral. ASSOCIATE PROFESSOR OF THEATRE- Intact Psych- Anxious Skin- Dry, no peripheral [...] note for details. DAPHNE SHAHID MD Pager [phone] Jet Mckenna MD - 07/05/2017 6:48 PM EST Preliminary Cardiac Catheterization Procedure Note: Procedure(s) performed: Left heart cath, IABP insertion Access: Right FINISHING MACHINE OPERATOR AUTOMATIC-->8fr IABP A time-out was conducted prior to [...] Heparin gtt maintained. Pt transferred to laborer bituminous paving. documented in this encounter H&P Notes Daphne Shahid MD - 07/05/2017 6:08 PM EST CARDIOLOGY HISTORY & PHYSICAL EXAM Date of Admission: 07/05/2017 ( Hospital Day 0 days ) Responsible Attending: Daphne Shahid MD PCP: Lovley Vicente MD PCP#: [phone] Patient Active Problem List Diagnosis Code ??? [...] significant valvular disease. Taken to the laborer bituminous paving urgently for ongoing STEMI. [facility] [...] I/O - s/p lasix in the laborer bituminous paving, redose to aim net neg 1L by [...] - ISS - hold metformin - f/u [facility] #Home Meds - continue levothyroxine 175mcg - CPAP at night # Routine - DVT PPx: heparin drip - Diet: NPO - Code Status: FULL - Dispo: [facility] Cedric Bey MD Internal Medicine, PGY-2 Cardiology S1, Team Pager # [phone] CARDIOLOGY ATTENDING NOTE Patient: Gregory Hoang Date [...] amenable for PCI. DAPHNE SHAHID MD Pager [phone] documented in this encounter Miscellaneous Notes Consult Note - Daphne Shahid MD - 07/14/2017 11:46 AM EST Heart Failure Service Inpatient Consult Note Gregory Hoang Date of : 1945 Age: 72 y.o. Today's date: 07/14/17 PCP: Lovely Vicente MD COMPACTING MACHINE OPERATOR/TENDER: None Place of Service: [facility] Reason for Consult: Dr. Webber has requested consultation regarding systolic heart failure management. HPI: Mr. Hoagn is a 72 year-old man with history [...] performed by Yuan Webber MD at [facility] MAIN OR ??? PRO CABG, ARTERY-VEIN, TWO N/A 07/07/2017 @CABG, TWO VENOUS GRAFTS & ARTERIAL GRAFT (WRVU 7.93) performed by Yuan Webber MD at [facility] MAIN OR ??? PRO COLONOSCOPY, REMV LESN, SNARE 01/16/2014 COLONOSCOPY, POLYPECTOMY, REMOVAL LESION BY SNARE performed by Nohemi Jaimes MD at [facility] ENDOSCOPY ??? PRO ENDOSCOPY W/VIDEO-ASST VEIN HARVEST, CABG Right 07/07/2017 ENDOSCOPIC HARVEST VEIN(S) FOR CABG (WRVU 0.31) performed by Yuan Webber MD at [facility] MAIN OR ??? PRO THYROIDECTOMY 03/28/2013 THYROIDECTOMY, TOTAL OR COMPLETE performed by Manny Mcknight MD at [facility] MAIN OR Outpt Meds: Current [...] following studies: EKG 07/14/17: NSR 75 bpm, RETAIL RESET MERCHANDISER anterior infarct, LAD CXR 07/11/17: FINDINGS: Sternotomy wires. The patient has been extubated, left chest tube removed, and [place]-Suzi catheter removed since the 07/07/2017 study. Atelectasis [...] was discussed with Zehra. Jaden Kelley MD Family Helper Pager [phone] CARDIOLOGY ATTENDING NOTE Patient: Gregory Hoang Date [...] heart failure clinic. DAPHNE SHAHID MD Pager [phone] Plan of Care - Alden Chavarria, METAL PATTERN MAKER - 07/14/2017 11:35 AM EST Problem: Patient [...] Discharge Disposition: home with assist Alden Chavarria, METAL PATTERN MAKER Pager: [phone] Inpatient Physical Therapy Problem: Acute Rehab Services [...] sit/sit to supine -- Bed Mobility Goal, [place] Level supervision required -- Bed Mobility Goal, [...] - 3 days -- Gait Training Goal, [place] Level supervision required -- Gait Training Goal, [...] days -- Transfer Training Goal, Activity Type zzq-bj-dpcpt/btalz-xa-zzw;rmo-iz-ckoeg/hwnrk-rg-qgr;toilet -- Transfer Train Goal, [place] Level supervision required -- Transfer Training Goal, [...] keeping present for 2 days per family. Assistant Professor Of Communication noted of frustrations, house keeping sent to room. Patient offered showered twice, refused. at bedside, frustrated that shower not complete, informed that patient had refused several times. requesting to see PROFESSIONAL EMPLOYER CONSULTANT, paged sent to Martha, will come to bedside (middle of consult). not willing to wait, Martha notified that family had gone home. Encouraged to come for morning rounds a t 8am. Diabetes team at bedside - insulin adjustments made. Call cabello in reach. Continue to monitor. PLAN MOVING FORWARD: Ambulate, dressing changes BID, Please change drsg at 4am per Martha PROFESSIONAL EMPLOYER CONSULTANT request. INDIVIDUALIZED FALL PREVENTION INTERVENTIONS: Patient-specific [...] levels on the lower side, 60ml of [place] juice given after a FS of 80. [...] Conf 07/13/17 0502 Interdisciplinary Rounds/Family Conf Participants dependency case manager;dietitian/nutrition services;nursing;occupational therapy;patient;pharmacy;physical therapy;physician Plan of [...] Anticipated Discharge Disposition: home with assist Pager: [phone] CLARISSA SEGAL, PT 07/12/2017 Physical Therapy Rehabilitation [...] to sit/sit to supine Bed Mobility Goal, [place] Level supervision required Bed Mobility Goal, Additional Goal adheres to psternal precautions for transfer Goal: Gait Training Goal Stand Alone Therapy Goal Outcome: Ongoing (Interventions Implemented as Appropriate) 07/12/17 1225 Gait Training Goal Gait Training Goal, Date Established 07/12/17 Gait Training Goal, Time to Achieve 2 - 3 days Gait Training Goal, [place] Level supervision required Gait Training Goal, Assist [...] 3 days Transfer Training Goal, Activity Type qll-qx-nhjal/dpnwx-ai-mxa;sct-tf-clrbi/ckxzd-pf-tfc;toilet Transfer Train Goal, [place] Level supervision required Transfer Training Goal, Additional [...] IV site, amio to other piv and PUMP ROOM OPERATOR at bedside to help assess, IV [...] Outcome: Ongoing (Interventions Implemented as Appropriate) 07/11/17199907/11/17200907/12/17 [facility] Daily Care Interventions Self-Care Promotion -- -- [...] he stood and marched in place. [place] weak, wanting to sit back down. Remained [...] Outcome: Ongoing (Interventions Implemented as Appropriate) 07/05/17 0308 Mutuality/Individual Preferences What Anxieties, Fears or Concerns [...] Health/Prescription Coverage: Primary Insurance: MEDICARE Secondary Insurance: [employer] [place] Prescription Coverage: yes Preferred Pharmacy: [facility] [place] Other: none Primary Care Provider: Lovely Vicente MD [phone] Patient/Caregiver Goals of Treatment:live and get my breath back Potential Needs for Transition of Care: Rehab/SNF: [facility]; [facility] Home Health: NA DME: TBD Dialysis: na Community Resources: available Transportation: yes Other: none Anticipated Barriers to Discharge/Special Considerations: none Plan: Likely SNF Rehab before home A member of the Care Management team will continue to monitor progress, follow for continuity of care and assist with transition of care planning. ERLIN Weiss Pager: [phone] Consult Note - Katerin Azul RN - [...] potential to d/c gtt and start CF. 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 Monitoring - continue BG tid ac & hs Diet - low fat/low carb diet Exercise - weight-bearing exercise 30 min/day, as tolerated Thank you for allowing us to provide care for your patient W/E coverage, Dr. Jeane Tatum, pager [phone] Katerin Patel. STACIE Azul Endocrinology Diabetes Management Pager [phone] Plan of Care - Stephanie Godoy RN [...] Operative Note Patient Name: Gregory Hoang : [id number] MR#: [id number] Case Date: 07/07/2017 Surgeon: Surgeon(s) and Role: * Yuan Webber MD - Primary * Michael Drake PA - Physician Gasoline Catalyst Operator * Linda Flores PA - Physician Gasoline Catalyst Operator Preoperative diagnosis: 3VD Postoperative diagnosis: CAD, [...] Operative Note Patient Name: Gregory Hoang : [id number] MR#: [id number] Case Date: 07/07/2017 Surgeon: Surgeon(s) and Role: * Yuan Webber MD - Primary * Michael Drake PA - Physician Gasoline Catalyst Operator * Linda Flores PA - Physician Gasoline Catalyst Operator Preoperative diagnosis: 3VD Postoperative diagnosis: CAD, [...] code status: Full Code Katty Davidjose, MS3 [facility] Cardiology S1 (Pager [phone]) Plan of Care - Emelia Ibarra RN [...] at [facility] ENDOSCOPY ??? PRO THYROIDECTOMY 03/28/2013 [...] with other involved physicians Yuan Webber MD [phone] Med Student Progress Note - Katty Hahn [...] BiPAP - s/p lasix in the laborer bituminous paving, was net -1.5L - s/p plavix load, [...] FULL - Dispo: [facility] Katty Hahn, M3 [facility] Cardiology S1 (Pager [phone]) Plan of Care - Stephanie Godoy RN [...] urinal without difficulty. Lasix given in laborer bituminous paving, 1.4 L out at this time. Pt [...] Dolan MD [facility] [address] [place], [place] [address] (Wo lissa) 05/28/2022 Laboratory Appointment Lab 05/28/2022 Office Visit Cardiology Zulma Dolan MD [facility] [place] [address] Liz Poole PA [facility] [place] [address] 06/10/2022 Office Visit Dermatology Laura Scherer MD [facility] [address] [facility] [place], [place] [address] (Wo rk) Scheduled Orders Name [...] procedure are i n the results section. CAN STERILIZER SCAN 07/15/2017 12:00 Res ults for this [...] Routine 07/08/2017 4:00 Results f or this ([place]/CG) AM EST procedure are i n the [...] 2017 EXAMINATION: XR CHEST PA AND LATERAL (FantrotterIC) CLINICAL HISTORY: CABG x 3 TECHNIQUE: PA [...] Teague APRN IMG DX ORDERABLES SCAN DOC: CAN STERILIZER (07/15/2017 12:00 AM EST) Narrative 07/15/2017 12:00 [...] Signature POC Glucose 186 65 - 199 [facility] mg/dL [facility] Comment: Supplemental ranges: <140 mg/dL before meals <180 mg/dL all other times of the day Specimen Anatomical Collection Method Collection Time Receive d Time (Source) Location / / Volume Laterality Blood specimen 07/14/2017 11:56 7 (specimen) AM EST 11:56 AM EST Yuan Webber MD POINT OF CARE TEST ORDERABLE S Performing Organization Address City/[facility]/[place] [address] POCT Glucose (07/14/2017 7:52 AM EST) athologist Signature POC Glucose 126 65 - 199 [facility] mg/dL [facility] Comment: Supplemental ranges: <140 mg/dL before meals <180 mg/dL all other times of the day Specimen Anatomical Collection Method Collection Time Receive d Time (Source) Location / / Volume Laterality Blood specimen 07/14/2017 7:52 AM 017 7:52 (specimen) EST AM EST Yuan Webber MD POINT OF CARE TEST ORDERABLE S Performing Organization Address City/State/[place] [address] (ABNORMAL) Prothrombin Time (07/14/2017 [...] APRN HEMATOLOGY ORDERABLES Performing Organization Address City/[facility]/[place] [address] Potassium (07/14/2017 4:46 AM EST) athologist Signature Potassium 4.3 3.5 - 5.0 [facility] mmol/L [facility] Comment: Please note: ??Patients [...] Address City/[facility]/[place] [address] POCT Glucose (07/14/2017 4:34 AM EST) athologist Signature POC Glucose 115 65 - 199 [facility] mg/dL [facility] Comment: Supplemental ranges: <140 mg/dL before meals <180 mg/dL all other times of the day Specimen Anatomical Collection Method Collection Time Receive d Time (Source) Location / / Volume Laterality Blood specimen 07/14/2017 4:34 AM 017 4:34 (specimen) EST AM EST Yuan Webber MD POINT OF CARE TEST ORDERABLE S Performing Organization Address City/State/ZIP Code Phon e Number [place] [id number] POCT Glucose (07/13/2017 11:33 PM EST) athologist Signature POC Glucose 132 65 - 199 [place] mg/dL [facility] Comment: Supplemental ranges: <140 mg/dL before meals <180 mg/dL all other times of the day Specimen Anatomical Collection Method Collection Time Receive d Time (Source) Location / / Volume Laterality Blood specimen 07/13/2017 11:33 7 (specimen) PM EST 11:33 PM EST Yuan Webber MD POINT OF CARE TEST ORDERABLE S Performing Organization Address City/State/ZIP Code Phon e Number [address] POCT Glucose (07/13/2017 9:25 PM EST) athologist Signature POC Glucose 121 65 - 199 [place] mg/dL [facility] Comment: Supplemental ranges: <140 mg/dL before meals <180 mg/dL all other times of the day Specimen Anatomical Collection Method Collection Time Receive d Time (Source) Location / / Volume Laterality Blood specimen 07/13/2017 9:25 PM 017 9:25 (specimen) EST PM EST Yuan Webber MD POINT OF CARE TEST ORDERABLE S Performing Organization Address City/State/ZIP Code Phon e Number [address] POCT Glucose (07/13/2017 4:55 PM EST) athologist Signature POC Glucose 79 65 - 199 [place] mg/dL [facility] Comment: Supplemental ranges: <140 mg/dL before meals <180 mg/dL all other times of the day Specimen Anatomical Collection Method Collection Time Receive d Time (Source) Location / / Volume Laterality Blood specimen 07/13/2017 4:55 PM 017 4:55 (specimen) EST PM EST Yuan Webber MD POINT OF CARE TEST ORDERABLE S Performing Organization Address City/State/[place] [address] POCT Glucose (07/13/2017 11:16 AM EST) athologist Signature POC Glucose 163 65 - 199 [facility] mg/dL [facility] Comment: Supplemental ranges: <140 mg/dL before meals <180 mg/dL all other times of the day Specimen Anatomical Collection Method Collection Time Receive d Time (Source) Location / / Volume Laterality Blood specimen 07/13/2017 11:16 7 (specimen) AM EST 11:16 AM EST Yuan Webber MD POINT OF CARE TEST ORDERABLE S Performing Organization Address City/State/ZIP Code Phon e Number [address] POCT Glucose (07/13/2017 8:07 AM EST) athologist Signature POC Glucose 96 65 - [address] [facility]dL [facility] Comment: Supplemental ranges: <140 mg/dL before meals <180 mg/dL all other times of the day Specimen Anatomical Collection Method Collection Time Receive d Time (Source) Location / / Volume Laterality Blood specimen 07/13/2017 8:07 AM 017 8:07 (specimen) EST AM EST Yuan Webber MD POINT OF CARE TEST ORDERABLE S Performing Organization Address City/State/ZIP Code Phon e Number [address] (ABNORMAL) Prothrombin Time (07/13/2017 [...] City/State/[place] [address] (ABNORMAL) Basic Metabolic Panel (non-fasting) (07/13/2017 4:26 AM EST) athologist Signature Glucose Lvl 95 65 - 199 [facility] mg/dL [facility] Comment: [...] or in patients with acute kidney failure. [email or web address] Specimen Anatomical Collection Method Collection Time Receive d Time (Source) Location / / Volume Laterality Blood specimen 07/13/2017 4:26 AM 017 4:46 (specimen) EST AM EST Resulting Agency Comment Spec In Lab Makayla Wilson APRN CHEMISTRY ORDERABLES Performing Organization Address City/[facility]/ZIP Code Phon e Number [address] POCT Glucose (07/13/2017 3:52 AM EST) athologist Signature POC Glucose 93 65 - 199 [facility] mg/dL [facility] Comment: Supplemental ranges: <140 mg/dL before meals <180 mg/dL all other times of the day Specimen Anatomical Collection Method Collection Time Receive d Time (Source) Location / / Volume Laterality Blood specimen 07/13/2017 3:52 AM 017 3:52 (specimen) EST AM EST Yuan Webber MD POINT OF CARE TEST ORDERABLE S Performing Organization Address City/[facility]/ZIP Code Phon e Number [address] POCT Glucose (07/13/2017 12:21 AM EST) athologist Signature POC Glucose 80 65 - 199 [place] mg/dL [facility] Comment: Supplemental ranges: <140 mg/dL before meals <180 mg/dL all other times of the day Specimen Anatomical Collection Method Collection Time Receive d Time (Source) Location / / Volume Laterality Blood specimen 07/13/2017 12:21 7 (specimen) AM EST 12:21 AM EST Yuan Webber MD POINT OF CARE TEST ORDERABLE S Performing Organization Address City/[facility]/[place] [address] POCT Glucose (07/12/2017 8:22 PM EST) athologist Signature POC Glucose 119 65 - 199 [place] mg/dL [facility] Comment: Supplemental ranges: <140 mg/dL before meals <180 mg/dL all other times of the day Specimen Anatomical Collection Method Collection Time Receive d Time (Source) Location / / Volume Laterality Blood specimen 07/12/2017 8:22 PM 017 8:22 (specimen) EST PM EST Yuan Webber MD POINT OF CARE TEST ORDERABLE S Performing Organization Address City/State/ZIP Code Phon e Number [address] POCT Glucose (07/12/2017 4:02 PM EST) athologist Signature POC Glucose 114 65 - 199 [place] mg/dL [facility] Comment: Supplemental ranges: <140 mg/dL before meals <180 mg/dL all other times of the day Specimen Anatomical Collection Method Collection Time Receive d Time (Source) Location / / Volume Laterality Blood specimen 07/12/2017 4:02 PM 017 4:02 (specimen) EST PM EST Yuan Webber MD POINT OF CARE TEST ORDERABLE S Performing Organization Address City/State/ZIP Code Phon e Number [address] POCT Glucose (07/12/2017 11:28 AM EST) athologist Signature POC Glucose 164 65 - 199 [facility] mg/dL [facility] Comment: Supplemental ranges: <140 mg/dL before meals <180 mg/dL all other times of the day Specimen Anatomical Collection Method Collection Time Receive d Time (Source) Location / / Volume Laterality Blood specimen 07/12/2017 11:28 7 (specimen) AM EST 11:28 AM EST Yuan Webber MD POINT OF CARE TEST ORDERABLE S Performing Organization Address City/State/ZIP Code Phon e Number [address] POCT Glucose (07/12/2017 7:34 AM EST) athologist Signature POC Glucose 109 65 - 199 [facility] mg/dL [facility] Comment: Supplemental ranges: <140 mg/dL before meals <180 mg/dL all other times of the day Specimen Anatomical Collection Method Collection Time Receive d Time (Source) Location / / Volume Laterality Blood specimen 07/12/2017 7:34 AM 017 7:34 (specimen) EST AM EST Yuan Webber MD POINT OF CARE TEST ORDERABLE S Performing Organization Address City/State/[place] [address] (ABNORMAL) Basic Metabolic Panel (non-fasting) (07/12/2017 4:11 AM EST) P athologist Signature Glucose Lvl 92 65 - 199 [facility] mg/dL [facility] Comment: [...] or in patients with acute kidney failure. [email or web address] [email or web address] Specimen Anatomical Collection Method Collection Time Receive d Time (Source) Location / / Volume Laterality Blood specimen 07/12/2017 4:11 AM 017 8:57 (specimen) EST AM EST Resulting Agency Comment Spec In Lab Makayla Wilson APRN CHEMISTRY ORDERABLES Performing Organization Address City/State/[place] [address] (ABNORMAL) Prothrombin Time (07/12/2017 [...] [place] STACIE HEMATOLOGY ORDERABLES Performing Organization Address City/[facility]/[place] [address] Potassium (07/12/2017 4:11 AM EST) athologist Signature Potassium 3.8 3.5 - 5.0 [facility] mmol/L [facility] Comment: Please note: ??Patients [...] Agency Comment Spec In Lab Makayla [place] POWER DISTRIBUTOR CHEMISTRY ORDERABLES Performing Organization Address City/[facility]/[place] [address] POCT Glucose (07/12/2017 4:10 AM EST) athologist Signature POC Glucose 90 65 - 199 [facility] Comment: Supplemental ranges: <140 mg/dL before meals <180 mg/dL all other times of the day Specimen Anatomical Collection Method Collection Time Receive d Time (Source) Location / / Volume Laterality Blood specimen 07/12/2017 4:10 AM 017 4:10 (specimen) EST AM EST Yuan Webber MD POINT OF CARE TEST ORDERABLE S Performing Organization Address City/State/ZIP Code Phon e Number [address] POCT Glucose (07/11/2017 11:57 PM EST) athologist Signature POC Glucose 98 65 - 199 [facility] Comment: Supplemental ranges: <140 mg/dL before meals <180 mg/dL all other times of the day Specimen Anatomical Collection Method Collection Time Receive d Time (Source) Location / / Volume Laterality Blood specimen 07/11/2017 11:57 7 (specimen) PM EST 11:57 PM EST Yuan Webber MD POINT OF CARE TEST ORDERABLE S Performing Organization Address City/State/ZIP Code Phon e Number [address] POCT Glucose (07/11/2017 8:32 PM EST) athologist Signature POC Glucose 146 65 - 199 [facility] Comment: Supplemental ranges: <140 mg/dL before meals <180 mg/dL all other times of the day Specimen Anatomical Collection Method Collection Time Receive d Time (Source) Location / / Volume Laterality Blood specimen 07/11/2017 8:32 PM 017 8:32 (specimen) EST PM EST Yuan Webber MD POINT OF CARE TEST ORDERABLE S Performing Organization Address City/State/[place] [address] XR Chest PA & [...] e xtubated, left chest tube removed, and [place]-Suzi catheter removed since the study. Atelectasis at [...] e xtubated, left chest tube removed, and [place]-Suzi catheter removed since the study. Atelectasis at [...] (H) 65 - 199 [place] mg/dL [facility] Comment: Supplemental ranges: <140 mg/dL before meals <180 mg/dL all other times of the day Specimen Anatomical Collection Method Collection Time Receive d Time (Source) Location / / Volume Laterality Blood specimen 07/11/2017 4:05 PM 017 4:05 (specimen) EST PM EST Yuan Webber MD POINT OF CARE TEST ORDERABLE S Performing Organization Address City/State/ZIP Code Phon e Number [address] POCT Glucose (07/11/2017 11:55 AM EST) athologist Signature POC Glucose 176 65 - 199 [place] mg/dL [facility] Comment: Supplemental ranges: <140 mg/dL before meals <180 mg/dL all other times of the day Specimen Anatomical Collection Method Collection Time Receive d Time (Source) Location / / Volume Laterality Blood specimen 07/11/2017 11:55 7 (specimen) AM EST 11:55 AM EST Yuan Webber MD POINT OF CARE TEST ORDERABLE S Performing Organization Address City/[facility]/ZIP Code Phon e Number [address] POCT Glucose (07/11/2017 7:53 AM EST) athologist Signature POC Glucose 189 65 - 199 [place] mg/dL [facility] Comment: Supplemental ranges: <140 mg/dL before meals <180 mg/dL all other times of the day Specimen Anatomical Collection Method Collection Time Receive d Time (Source) Location / / Volume Laterality Blood specimen 07/11/2017 7:53 AM 017 7:53 (specimen) EST AM EST Yuan Webber MD POINT OF CARE TEST ORDERABLE S Performing Organization Address City/State/[place] [address] POCT Glucose (07/11/2017 4:22 AM EST) athologist Signature POC Glucose 151 65 - 199 [place] mg/dL [facility] Comment: Supplemental ranges: <140 mg/dL before meals <180 mg/dL all other times of the day Specimen Anatomical Collection Method Collection Time Receive d Time (Source) Location / / Volume Laterality Blood specimen 07/11/2017 4:22 AM 017 4:22 (specimen) EST AM EST Yuan Webber MD POINT OF CARE TEST ORDERABLE S Performing Organization Address City/[facility]/[place] [address] Potassium (07/11/2017 2:20 AM EST) athologist Signature Potassium 4.5 3.5 - 5.0 [facility]/L [facility] Comment: Please note: ??Patients [...] Address City/[facility]/[place] [address] POCT Glucose (07/11/2017 12:17 AM EST) athologist Signature POC Glucose 162 65 - 199 [place] mg/dL [facility] Comment: Supplemental ranges: <140 mg/dL before meals <180 mg/dL all other times of the day Specimen Anatomical Collection Method Collection Time Receive d Time (Source) Location / / Volume Laterality Blood specimen 07/11/2017 12:17 7 (specimen) AM EST 12:17 AM EST Yuan Webber MD POINT OF CARE TEST ORDERABLE S Performing Organization Address City/[facility]/[place] [address] POCT Glucose (07/10/2017 8:47 PM EST) athologist Signature POC Glucose 191 65 - 199 [place] mg/dL [facility] Comment: Supplemental ranges: <140 mg/dL before meals <180 mg/dL all other times of the day Specimen Anatomical Collection Method Collection Time Receive d Time (Source) Location / / Volume Laterality Blood specimen 07/10/2017 8:47 PM 017 8:47 (specimen) EST PM EST Yuan Webber MD POINT OF CARE TEST ORDERABLE S Performing Organization Address City/State/[place] [address] POCT Glucose (07/10/2017 4:06 PM EST) athologist Signature POC Glucose 131 65 - 199 [place] mg/dL [facility] Comment: Supplemental ranges: <140 mg/dL before meals <180 mg/dL all other times of the day Specimen Anatomical Collection Method Collection Time Receive d Time (Source) Location / / Volume Laterality Blood specimen 07/10/2017 4:06 PM 017 4:06 (specimen) EST PM EST Yuan Webber MD POINT OF CARE TEST ORDERABLE S Performing Organization Address City/[facility]/[place] [address] POCT Glucose (07/10/2017 3:08 PM EST) athologist Signature POC Glucose 151 65 - 199 [place] mg/dL [facility] Comment: Supplemental ranges: <140 mg/dL before meals <180 mg/dL all other times of the day Specimen Anatomical Collection Method Collection Time Receive d Time (Source) Location / / Volume Laterality Blood specimen 07/10/2017 3:08 PM 017 3:08 (specimen) EST PM EST Yuan Webber MD POINT OF CARE TEST ORDERABLE S Performing Organization Address City/State/[place] [address] POCT Glucose (07/10/2017 2:25 PM EST) athologist Signature POC Glucose 146 65 - 199 [facility] mg/dL [facility] Comment: Supplemental ranges: <140 mg/dL before meals <180 mg/dL all other times of the day Specimen Anatomical Collection Method Collection Time Receive d Time (Source) Location / / Volume Laterality Blood specimen 07/10/2017 2:25 PM 017 2:25 (specimen) EST PM EST Yuan Webber MD POINT OF CARE TEST ORDERABLE S Performing Organization Address City/State/ZIP Code Phon e Number [address] POCT Glucose (07/10/2017 1:23 PM EST) P athologist Signature POC Glucose 166 65 - 199 [place] mg/dL [facility] Comment: Supplemental ranges: <140 mg/dL before meals <180 mg/dL all other times of the day Specimen Anatomical Collection Method Collection Time Receive d Time (Source) Location / / Volume Laterality Blood specimen 07/10/2017 1:23 PM 017 1:23 (specimen) EST PM EST Yuan Webber MD POINT OF CARE TEST ORDERABLE S Performing Organization Address City/[facility]/ZIP Code Phon e Number [address] POCT Glucose (07/10/2017 11:52 AM EST) P athologist Signature POC Glucose 157 65 - 199 [place] mg/dL [facility] Comment: Supplemental ranges: <140 mg/dL before meals <180 mg/dL all other times of the day Specimen Anatomical Collection Method Collection Time Receive d Time (Source) Location / / Volume Laterality Blood specimen 07/10/2017 11:52 7 (specimen) AM EST 11:52 AM EST Yuan Webber MD POINT OF CARE TEST ORDERABLE S Performing Organization Address City/[facility]/[place] [address] POCT Glucose (07/10/2017 11:01 AM EST) P athologist Signature POC Glucose 158 65 - 199 [place] mg/dL [facility] Comment: Supplemental ranges: <140 mg/dL before meals <180 mg/dL all other times of the day Specimen Anatomical Collection Method Collection Time Receive d Time (Source) Location / / Volume Laterality Blood specimen 07/10/2017 11:01 7 (specimen) AM EST 11:01 AM EST Yuan Webber MD POINT OF CARE TEST ORDERABLE S Performing Organization Address City/State/ZIP Code Phon e Number [address] POCT Glucose (07/10/2017 9:54 AM EST) athologist Signature POC Glucose 160 65 - 199 [place] mg/dL [facility] Comment: Supplemental ranges: <140 mg/dL before meals <180 mg/dL all other times of the day Specimen Anatomical Collection Method Collection Time Receive d Time (Source) Location / / Volume Laterality Blood specimen 07/10/2017 9:54 AM 017 9:54 (specimen) EST AM EST Yuan Webber MD POINT OF CARE TEST ORDERABLE S Performing Organization Address City/[facility]/ZIP Code Phon e Number [address] POCT Glucose (07/10/2017 8:58 AM EST) athologist Signature POC Glucose 183 65 - 199 [place] mg/dL [facility] Comment: Supplemental ranges: <140 mg/dL before meals <180 mg/dL all other times of the day Specimen Anatomical Collection Method Collection Time Receive d Time (Source) Location / / Volume Laterality Blood specimen 07/10/2017 8:58 AM 017 8:58 (specimen) EST AM EST Yuan Webber MD POINT OF CARE TEST ORDERABLE S Performing Organization Address City/State/ZIP Code Phon e Number [address] POCT Glucose (07/10/2017 8:01 AM EST) athologist Signature POC Glucose 173 65 - 199 [facility] mg/dL [facility] Comment: Supplemental ranges: <140 mg/dL before meals <180 mg/dL all other times of the day Specimen Anatomical Collection Method Collection Time Receive d Time (Source) Location / / Volume Laterality Blood specimen 07/10/2017 8:01 AM 017 8:01 (specimen) EST AM EST Yuan Webber MD POINT OF CARE TEST ORDERABLE S Performing Organization Address City/State/ZIP Code Phon e Number [address] POCT Glucose (07/10/2017 7:05 AM EST) athologist Signature POC Glucose 166 65 - 199 [place] mg/dL [facility] Comment: Supplemental ranges: <140 mg/dL before meals <180 mg/dL all other times of the day Specimen Anatomical Collection Method Collection Time Receive d Time (Source) Location / / Volume Laterality Blood specimen 07/10/2017 7:05 AM 017 7:05 (specimen) EST AM EST Yuan Webber MD POINT OF CARE TEST ORDERABLE S Performing Organization Address City/State/ZIP Code Phon e Number [address] POCT Glucose (07/10/2017 6:00 AM EST) athologist Signature POC Glucose 162 65 - 199 [facility] Comment: Supplemental ranges: <140 mg/dL before meals <180 mg/dL all other times of the day Specimen Anatomical Collection Method Collection Time Receive d Time (Source) Location / / Volume Laterality Blood specimen 07/10/2017 6:00 AM 017 6:00 (specimen) EST AM EST Yuan Webber MD POINT OF CARE TEST ORDERABLE S Performing Organization Address City/State/[place] [address] (ABNORMAL) Differential, Automated (07/10/2017 4:28 AM EST) [facility] gist Method Time Signature Neutrophils % 87.9 % [facility] Neutr Abs (ANC) 10.70 (H) 1.70 - [facility] 6.10 [facility] x10(3)/[facility] L LABORATORY Lymphocytes % 3.9 % [facility] Lymphocytes Abs 0.5 (L) 0.9 - 3.2 [facility] x10(3)/[facility] LABORATORY Monocytes % 7.0 % [facility] Monocyte Abs 0.8 0.3 - 0.9 [facility] x10(3)/[facility] LABORATORY Eosinophils % 0.3 % [facility] Eosinophils Abs 0.0 0.0 - 0.4 [facility] x10(3)/[facility] LABORATORY Basophils % 0.2 % [facility] Basophils Abs 0.0 0.0 - 0.1 [facility] x10(3)/[facility] LABORATORY Immature Gran [...] City/State/[place] [address] (ABNORMAL) Hemogram (07/10/2017 4:28 AM EST) Analysis Performed At Patho logist Time Signature WBC 12.2 (H) 4.0 - 9.5 [facility] x10(3)/[facility] LABORATORY RBC 3.31 (L) 4.58 - [facility] 5.54 [facility] x10(6)/[facility] LABORATORY Hemoglobin 9.8 (L) 13.7 - [facility] 16.5 gm/dL [facility] LABORATORY Hematocrit 30.0 (L) 40.5 - [facility] 48.5 % [facility] LABORATORY MCV 90.6 82.9 - [facility] 93.1 fL [facility] LABORATORY MCH 29.6 27.5 - [facility].1 pg [facility] MCHC 32.7 32.0 - [facility] 35.7 gm/dL [facility] LABORATORY Platelets 135 (L) 145 - 357 [facility] x10(3)/[facility] LABORATORY RDWSD 50.8 (H) 36.0 - [facility] 45.0 [facility] LABORATORY RDWCV 15.4 (H) 11.4 - [facility] 13.8 % [facility] LABORATORY MPV 10.0 7.6 - 12.9 [facility] LABORATORY nRBC % Auto 0.0 % [facility] LABORATORY nRBC Abs Auto 0.000 0.000 - [facility] 0.000 [facility] x10(3)/[facility] LABORATORY Specimen Anatomical Collection Method Collection Time Receive d Time (Source) Location / / Volume Laterality Blood specimen 07/10/2017 4:28 AM 017 4:36 (specimen) EST AM EST Resulting Agency Comment Spec In Lab Yuan Webber MD HEMATOLOGY ORDERABLES Performing Organization Address City/State/[place] [address] (ABNORMAL) Basic Metabolic Panel (non-fasting) (07/10/2017 4:28 AM EST) athologist Signature Glucose Lvl 178 65 - 199 [facility] mg/dL [facility] LABORATORY Comment: [...] or in patients with acute kidney failure. http://[email or web address] http://[employer]/DHMCnkf Specimen Anatomical Collection Method Collection Time Receive d Time (Source) Location / / Volume Laterality Blood specimen 07/10/2017 4:28 AM 017 4:36 (specimen) EST AM EST Resulting Agency Comment Spec In Lab Yuan Webber MD CHEMISTRY ORDERABLES Performing Organization Address City/[facility]/ZIP Code Phon e Number [address] POCT Glucose (07/10/2017 4:26 AM EST) P athologist Signature POC Glucose 176 65 - 199 [facility] mg/dL [facility] LABORATORY Comment: Supplemental ranges: <140 mg/dL before meals <180 mg/dL all other times of the day Specimen Anatomical Collection Method Collection Time Receive d Time (Source) Location / / Volume Laterality Blood specimen 07/10/2017 4:26 AM 017 4:26 (specimen) EST AM EST Yuan Webber MD POINT OF CARE TEST ORDERABLE S Performing Organization Address City/State/[place] [address] (ABNORMAL) POCT Glucose (07/10/2017 3:06 AM EST) P athologist Signature POC Glucose 204 (H) 65 - 199 [facility] LABORATORY Comment: Supplemental ranges: <140 mg/dL before meals <180 mg/dL all other times of the day Specimen Anatomical Collection Method Collection Time Receive d Time (Source) Location / / Volume Laterality Blood specimen 07/10/2017 3:06 AM 017 3:06 (specimen) EST AM EST Yuan Webber MD POINT OF CARE TEST ORDERABLE S Performing Organization Address City/[facility]/[place] [address] (ABNORMAL) POCT Glucose (07/10/2017 2:10 AM EST) P athologist Signature POC Glucose 203 (H) 65 - 199 [place] [facility] mg/dL [facility] LABORATORY Comment: Supplemental ranges: <140 mg/dL before meals <180 mg/dL all other times of the day Specimen Anatomical Collection Method Collection Time Receive d Time (Source) Location / / Volume Laterality Blood specimen 07/10/2017 2:10 AM 017 2:10 (specimen) EST AM EST Yuan Webber MD POINT OF CARE TEST ORDERABLE S Performing Organization Address City/[facility]/[place] [address] POCT Glucose (07/10/2017 1:09 AM EST) P athologist Signature POC Glucose 196 65 - 199 [place] mg/dL [facility] LABORATORY Comment: Supplemental ranges: <140 mg/dL before meals <180 mg/dL all other times of the day Specimen Anatomical Collection Method Collection Time Receive d Time (Source) Location / / Volume Laterality Blood specimen 07/10/2017 1:09 AM 017 1:09 (specimen) EST AM EST Yuan Webber MD POINT OF CARE TEST ORDERABLE S Performing Organization Address City/State/[place] [address] POCT Glucose (07/10/2017 12:10 AM EST) P athologist Signature POC Glucose 173 65 - 199 [place] RYAN mg/dL [facility] LABORATORY Comment: Supplemental ranges: <140 mg/dL before meals <180 mg/dL all other times of the day Specimen Anatomical Collection Method Collection Time Receive d Time (Source) Location / / Volume Laterality Blood specimen 07/10/2017 12:10 7 (specimen) AM EST 12:10 AM EST Yuan Webber MD POINT OF CARE TEST ORDERABLE S Performing Organization Address City/State/ZIP Code Phon e Number [address] POCT Glucose (07/09/2017 11:01 PM EST) athologist Signature POC Glucose 140 65 - 199 [place] RYAN mg/dL [facility] LABORATORY Comment: Supplemental ranges: <140 mg/dL before meals <180 mg/dL all other times of the day Specimen Anatomical Collection Method Collection Time Receive d Time (Source) Location / / Volume Laterality Blood specimen 07/09/2017 11:01 7 (specimen) PM EST 11:01 PM EST Yuan Webber MD POINT OF CARE TEST ORDERABLE S Performing Organization Address City/[facility]/ZIP Code Phon e Number [address] POCT Glucose (07/09/2017 10:05 PM EST) athologist Signature POC Glucose 144 65 - 199 [place] mg/dL [facility] LABORATORY Comment: Supplemental ranges: <140 mg/dL before meals <180 mg/dL all other times of the day Specimen Anatomical Collection Method Collection Time Receive d Time (Source) Location / / Volume Laterality Blood specimen 07/09/2017 10:05 7 (specimen) PM EST 10:05 PM EST Yuan Webber MD POINT OF CARE TEST ORDERABLE S Performing Organization Address City/State/[place] [address] POCT Glucose (07/09/2017 9:31 PM EST) athologist Signature POC Glucose 121 65 - 199 [place] RYAN mg/dL [facility] LABORATORY Comment: Supplemental ranges: <140 mg/dL before meals <180 mg/dL all other times of the day Specimen Anatomical Collection Method Collection Time Receive d Time (Source) Location / / Volume Laterality Blood specimen 07/09/2017 9:31 PM 017 9:31 (specimen) EST PM EST Yuan Webber MD POINT OF CARE TEST ORDERABLE S Performing Organization Address City/State/ZIP Code Phon e Number [address] POCT Glucose (07/09/2017 9:03 PM EST) athologist Signature POC Glucose 98 65 - 199 [place] [facility] mg/dL [facility] LABORATORY Comment: Supplemental ranges: <140 mg/dL before meals <180 mg/dL all other times of the day Specimen Anatomical Collection Method Collection Time Receive d Time (Source) Location / / Volume Laterality Blood specimen 07/09/2017 9:03 PM 017 9:03 (specimen) EST PM EST Yuan Webber MD POINT OF CARE TEST ORDERABLE S Performing Organization Address City/State/ZIP Code Phon e Number [address] POCT Glucose (07/09/2017 8:09 PM EST) athologist Signature POC Glucose 117 65 - 199 [place] RYAN mg/dL [facility] LABORATORY Comment: Supplemental ranges: <140 mg/dL before meals <180 mg/dL all other times of the day Specimen Anatomical Collection Method Collection Time Receive d Time (Source) Location / / Volume Laterality Blood specimen 07/09/2017 8:09 PM 017 8:09 (specimen) EST PM EST Yuan Webber MD POINT OF CARE TEST ORDERABLE S Performing Organization Address City/State/ZIP Code Phon e Number [address] POCT Glucose (07/09/2017 5:40 PM EST) athologist Signature POC Glucose 155 65 - 199 [facility] mg/dL [facility] LABORATORY Comment: Supplemental ranges: <140 mg/dL before meals <180 mg/dL all other times of the day Specimen Anatomical Collection Method Collection Time Receive d Time (Source) Location / / Volume Laterality Blood specimen 07/09/2017 5:40 PM 017 5:40 (specimen) EST PM EST Yuan Webber MD POINT OF CARE TEST ORDERABLE S Performing Organization Address City/State/ZIP Code Phon e Number [address] POCT Glucose (07/09/2017 4:24 PM EST) athologist Signature POC Glucose 164 65 - 199 [place] RYAN mg/dL [facility] LABORATORY Comment: Supplemental ranges: <140 mg/dL before meals <180 mg/dL all other times of the day Specimen Anatomical Collection Method Collection Time Receive d Time (Source) Location / / Volume Laterality Blood specimen 07/09/2017 4:24 PM 017 4:24 (specimen) EST PM EST Yuan Webber MD POINT OF CARE TEST ORDERABLE S Performing Organization Address City/[facility]/ZIP Code Phon e Number [address] POCT Glucose (07/09/2017 3:19 PM EST) athologist Signature POC Glucose 166 65 - 199 [place]HAORY[place] mg/dL [facility] LABORATORY Comment: Supplemental ranges: <140 mg/dL before meals <180 mg/dL all other times of the day Specimen Anatomical Collection Method Collection Time Receive d Time (Source) Location / / Volume Laterality Blood specimen 07/09/2017 3:19 PM 017 3:19 (specimen) EST PM EST Yuan Webber MD POINT OF CARE TEST ORDERABLE S Performing Organization Address City/[facility]/[place] [address] POCT Glucose (07/09/2017 2:26 PM EST) athologist Signature POC Glucose 179 65 - 199 [place] RYAN mg/dL [facility] LABORATORY Comment: Supplemental ranges: <140 mg/dL before meals <180 mg/dL all other times of the day Specimen Anatomical Collection Method Collection Time Receive d Time (Source) Location / / Volume Laterality Blood specimen 07/09/2017 2:26 PM 017 2:26 (specimen) EST PM EST Yuan Webber MD POINT OF CARE TEST ORDERABLE S Performing Organization Address City/State/[place] [address] (ABNORMAL) POCT Glucose (07/09/2017 1:29 PM EST) P athologist Signature POC Glucose 210 (H) 65 - 199 [facility] mg/dL [facility] LABORATORY Comment: Supplemental ranges: <140 mg/dL before meals <180 mg/dL all other times of the day Specimen Anatomical Collection Method Collection Time Receive d Time (Source) Location / / Volume Laterality Blood specimen 07/09/2017 1:29 PM 017 1:29 (specimen) EST PM EST Yuan Webber MD POINT OF CARE TEST ORDERABLE S Performing Organization Address City/State/[place] [address] POCT Glucose (07/09/2017 12:20 PM EST) athologist Signature POC Glucose 172 65 - 199 [facility] mg/dL [facility] LABORATORY Comment: Supplemental ranges: <140 mg/dL before meals <180 mg/dL all other times of the day Specimen Anatomical Collection Method Collection Time Receive d Time (Source) Location / / Volume Laterality Blood specimen 07/09/2017 12:20 7 (specimen) PM EST 12:20 PM EST Yuan Webber MD POINT OF CARE TEST ORDERABLE S Performing Organization Address City/State/[place] [address] POCT Glucose (07/09/2017 11:24 AM EST) athologist Signature POC Glucose 156 65 - 199 [facility] mg/dL [facility] LABORATORY Comment: Supplemental ranges: <140 mg/dL before meals <180 mg/dL all other times of the day Specimen Anatomical Collection Method Collection Time Receive d Time (Source) Location / / Volume Laterality Blood specimen 07/09/2017 11:24 7 (specimen) AM EST 11:24 AM EST Yuan Webber MD POINT OF CARE TEST ORDERABLE S Performing Organization Address City/State/[place] [address] POCT Glucose (07/09/2017 11:11 AM EST) athologist Signature POC Glucose 172 65 - 199 [place]HAORY[place] mg/dL [facility] LABORATORY Comment: Supplemental ranges: <140 mg/dL before meals <180 mg/dL all other times of the day Specimen Anatomical Collection Method Collection Time Receive d Time (Source) Location / / Volume Laterality Blood specimen 07/09/2017 11:11 7 (specimen) AM EST 11:11 AM EST Yuan Webber MD POINT OF CARE TEST ORDERABLE S Performing Organization Address City/State/ZIP Code Phon e Number [address] POCT Glucose (07/09/2017 10:08 AM EST) athologist Signature POC Glucose 176 65 - 199 [place] [facility]HAORY[place] mg/dL [facility] LABORATORY Comment: Supplemental ranges: <140 mg/dL before meals <180 mg/dL all other times of the day Specimen Anatomical Collection Method Collection Time Receive d Time (Source) Location / / Volume Laterality Blood specimen 07/09/2017 10:08 7 (specimen) AM EST 10:08 AM EST Yuan Webber MD POINT OF CARE TEST ORDERABLE S Performing Organization Address City/State/ZIP Code Phon e Number [address] POCT Glucose (07/09/2017 8:02 AM EST) athologist Signature POC Glucose 178 65 - 199 [place]HAORY[place] mg/dL [facility] LABORATORY Comment: Supplemental ranges: <140 mg/dL before meals <180 mg/dL all other times of the day Specimen Anatomical Collection Method Collection Time Receive d Time (Source) Location / / Volume Laterality Blood specimen 07/09/2017 8:02 AM 017 8:02 (specimen) EST AM EST Yuan Webber MD POINT OF CARE TEST ORDERABLE S Performing Organization Address City/State/[place] [address] (ABNORMAL) BLOOD GAS 2 ARTERIAL (07/09/2017 5:37 AM EST) Analysis Performed At Patho logist Time Signature pH Art 7.36 7.35 - [facility] 7.45 [facility] LABORATORY pCO2 Art 38 35 - 45 [facility] mmHg [facility] LABORATORY pO2 Art 79 (L) 85 - 104 [facility] LABORATORY HCO3 Art 20.9 20.0 - [facility] 26.0 [facility] mmol/L [facility] LABORATORY BE Art -4.6 (L) -3.0 - 3.0 [facility] mmol/L [facility] LABORATORY Hgb Blood Gas 10.5 (L) 13.7 - [facility] 16.5 gm/dL [facility] O2HB Art 93.8 (L) 94.0 - [facility] 97.0 % [facility] LABORATORY COHB Art 0.3 % [...] [facility] LAB[facility] FIO2 Art 40 % [facility] LABORATORY PF Ratio Art 198 [facility] LABORATORY Specimen Anatomical Collection Method Collection Time Receive d Time (Source) Location / / Volume Laterality Blood specimen 07/09/2017 5:37 AM 017 5:37 (specimen) EST AM EST Yuan Webber MD CHEMISTRY ORDERABLES Performing Organization Address City/[facility]/ZIP Code Phon e Number [address] POCT Glucose (07/09/2017 3:27 AM EST) athologist Signature POC Glucose 192 65 - 199 [facility] mg/dL [facility] LABORATORY Comment: Supplemental ranges: <140 mg/dL before meals <180 mg/dL all other times of the day Specimen Anatomical Collection Method Collection Time Receive d Time (Source) Location / / Volume Laterality Blood specimen 07/09/2017 3:27 AM 017 3:27 (specimen) EST AM EST Yuan Webber MD POINT OF CARE TEST ORDERABLE S Performing Organization Address City/State/[place] [address] (ABNORMAL) Basic Metabolic Panel (non-fasting) (07/09/2017 2:30 AM EST) athologist Signature Glucose Lvl 179 65 - 199 [facility] mg/dL [facility] LABORATORY Comment: [...] or in patients with acute kidney failure. http://[email or web address] http://[employer]/DHMCnkf Specimen Anatomical Collection Method Collection Time Receive d Time (Source) Location / / Volume Laterality Blood specimen Venous Draw / 07/09/2017 2:30 AM 2016 2:42 (specimen) Unknown EST AM EST Resulting Agency Comment Spec In Lab Yuan Webber MD CHEMISTRY ORDERABLES Performing Organization Address City/[facility] [place] [address] (ABNORMAL) Potassium (07/09/2017 2:30 AM EST) P athologist Signature Potassium 5.1 (H) 3.5 - 5.0 [facility] mmol/L [facility] LABORATORY Comment: Please note: ??Patients [...] CHEMISTRY ORDERABLES Performing Organization Address City/[facility]/ZIP [facility] [place] [place] [address] (ABNORMAL) Hemogram (07/09/2017 2:30 AM EST) Analysis Performed At Patho logist Time Signature WBC 12.5 (H) 4.0 - 9.5 [facility] x10(3)/[facility] LABORATORY RBC 3.38 (L) 4.58 - [facility] 5.54 [facility] x10(6)/[facility] LABORATORY Hemoglobin 10.1 (L) 13.7 - [place] [facility] 16.5 gm/dL [facility] LABORATORY Hematocrit 30.3 (L) 40.5 - [facility] 48.5 % [facility] LABORATORY MCV 89.6 82.9 - [facility] 93.1 [facility] LABORATORY MCH 29.9 27.5 - [place] [facility] 32.1 pg [facility] LABORATORY MCHC 33.3 32.0 - [place] [facility] 35.7 gm/dL [facility] LABORATORY Platelets 127 (L) 145 - 357 [facility] x10(3)/[facility] LABORATORY RDWSD 49.3 (H) 36.0 - [facility] 45.0 [facility] LABORATORY RDWCV 15.2 (H) 11.4 - [facility] 13.8 % [facility] LABORATORY MPV 9.9 7.6 - 12.9 [facility] LABORATORY nRBC % Auto 0.0 % [facility] LABORATORY nRBC Abs Auto 0.000 0.000 - [place] [facility]HAORY[place] 0.000 [facility] x10(3)/[facility] LABORATORY Specimen Anatomical Collection Method Collection Time Receive d Time (Source) Location / / Volume Laterality Blood specimen 07/09/2017 2:30 AM 017 2:41 (specimen) EST AM EST Resulting Agency Comment Spec In Lab Yuan Webber MD HEMATOLOGY ORDERABLES Performing Organization Address City/State/[place] [address] POCT Glucose (07/09/2017 2:10 AM EST) P athologist Signature POC Glucose 169 65 - 199 [facility] mg/dL [facility] LABORATORY Comment: Supplemental ranges: <140 mg/dL before meals <180 mg/dL all other times of the day Specimen Anatomical Collection Method Collection Time Receive d Time (Source) Location / / Volume Laterality Blood specimen 07/09/2017 2:10 AM 017 2:10 (specimen) EST AM EST Yuan Webber MD POINT OF CARE TEST ORDERABLE S Performing Organization Address City/State/ZIP Code Phon e Number [address] POCT Glucose (07/09/2017 1:01 AM EST) P athologist Signature POC Glucose 173 65 - 199 [place] DAVIS mg/dL [facility] LABORATORY Comment: Supplemental ranges: <140 mg/dL before meals <180 mg/dL all other times of the day Specimen Anatomical Collection Method Collection Time Receive d Time (Source) Location / / Volume Laterality Blood specimen 07/09/2017 1:01 AM 017 1:01 (specimen) EST AM EST Yuan Webber MD POINT OF CARE TEST ORDERABLE S Performing Organization Address City/[facility]/[place] [address] Blood culture (07/09/2017 12:40 AM EST) [facility] gist Method Time Signature Blood Culture No growth KAATLINA DAVIS at 5 days. [facility] LABORATORY Specimen Anatomical Collection Method Collection Time Receive d Time (Source) Location / / Volume Laterality Blood specimen STRUCTURE OF RIGHT 07/09/2017 12:40 3:58 (specimen) UPPER LIMB / AM EST AM EST Unknown Resulting Agency Comment Spec In Lab Yuan Webber MD MICROBIOLOGY - BLOOD ORDERAB LES Performing Organization Address City/[facility]/ZIP [place] [address] Blood culture (07/09/2017 12:30 AM EST) Patholo gist Method Time Signature Blood Culture No growth KATALINA DAVIS at 5 days. [facility] LABORATORY Specimen Anatomical Collection Method Collection Time Receive d Time (Source) Location / / Volume Laterality Blood specimen STRUCTURE OF LEFT 07/09/2017 12:30 06/25 3:59 (specimen) UPPER LIMB / AM EST AM EST Unknown Resulting Agency Comment Spec In Lab Yuan Webber MD MICROBIOLOGY - BLOOD ORDERAB LES Performing Organization Address City/[facility]/ZIP [place] [address] (ABNORMAL) Urinalysis Microscopic Exam [...] Organization Address City/State/[place] [address] (ABNORMAL) Urinalysis with reflex Culture (07/09/2017 12:05 AM EST) Patholo gist Method Time Signature Glucose UA Negative Negative [facility] mg/dL [facility] LABORATORY Protein UA 30 (A) Negative [facility] mg/dL [facility] LABORATORY Bilirubin UA Negative Negative [facility] mg/dL [facility] LABORATORY Comment: Clinical correlation required [...] [facility] Nitrite UA Negative Negative [facility] LABORATORY Leukocytes UA Negative Negative [facility] LABORATORY Appearance UA Hazy (A) Clear [facility] LABORATORY Spec Sawyer UA 1.025 1.002 - 1.030 [facility] LABORATORY Color UA Yellow Yellow [facility] LABORATORY Culture Reflexed No [facility] LABORATORY Specimen (Source) Anatomical Collection Method Collection Time Re ceived Time Location / / Volume Laterality Urine specimen 07/09/2017 12:05 7 obtained via AM EST 12:39 AM EST indwelling urinary catheter (specimen) Resulting Agency Comment Spec In Lab Yuan Webber MD URINE ORDERABLES Performing Organization Address City/[facility]/ZIP Code Phon e Number [address] POCT Glucose (07/08/2017 11:01 PM EST) athologist Signature POC Glucose 191 65 - 199 [facility] mg/dL [facility] LABORATORY Comment: Supplemental ranges: <140 mg/dL before meals <180 mg/dL all other times of the day Specimen Anatomical Collection Method Collection Time Receive d Time (Source) Location / / Volume Laterality Blood specimen 07/08/2017 11:01 7 (specimen) PM EST 11:01 PM EST Yuan Webber MD POINT OF CARE TEST ORDERABLE S Performing Organization Address City/[facility]/ZIP Code Phon e Number [address] POCT Glucose (07/08/2017 10:04 PM EST) athologist Signature POC Glucose 198 65 - 199 [facility] mg/dL [facility] LABORATORY Comment: Supplemental ranges: <140 mg/dL before meals <180 mg/dL all other times of the day Specimen Anatomical Collection Method Collection Time Receive d Time (Source) Location / / Volume Laterality Blood specimen 07/08/2017 10:04 7 (specimen) PM EST 10:04 PM EST Yuan Webber MD POINT OF CARE TEST ORDERABLE S Performing Organization Address City/State/[place] [address] Prepare Albumin 5% in [...] Organization Address City/State/[place] [address] POCT Glucose (07/08/2017 8:28 PM EST) athologist Signature POC Glucose 195 65 - 199 [facility] mg/dL [facility] Comment: Supplemental ranges: <140 mg/dL before meals <180 mg/dL all other times of the day Specimen Anatomical Collection Method Collection Time Receive d Time (Source) Location / / Volume Laterality Blood specimen 07/08/2017 8:28 PM 017 8:28 (specimen) EST PM EST Yuan Webber MD POINT OF CARE TEST ORDERABLE S Performing Organization Address City/State/[place] [address] (ABNORMAL) POCT Glucose (07/08/2017 7:13 PM EST) athologist Signature POC Glucose 220 (H) 65 - 199 [facility] mg/dL [facility] Comment: Supplemental ranges: <140 mg/dL before meals <180 mg/dL all other times of the day Specimen Anatomical Collection Method Collection Time Receive d Time (Source) Location / / Volume Laterality Blood specimen 07/08/2017 7:13 PM 017 7:13 (specimen) EST PM EST Yuan Webber MD POINT OF CARE TEST ORDERABLE S Performing Organization Address City/State/[place] [address] POCT Glucose (07/08/2017 5:04 PM EST) athologist Signature POC Glucose 147 65 - 199 [facility] mg/dL [facility] Comment: Supplemental ranges: <140 mg/dL before meals <180 mg/dL all other times of the day Specimen Anatomical Collection Method Collection Time Receive d Time (Source) Location / / Volume Laterality Blood specimen 07/08/2017 5:04 PM 017 5:04 (specimen) EST PM EST Yuan Webber MD POINT OF CARE TEST ORDERABLE S Performing Organization Address City/State/[place] [address] (ABNORMAL) BLOOD GAS 2 ARTERIAL (07/08/2017 4:13 PM EST) Analysis Performed At Patho logist Time Signature pH Art 7.38 7.35 - [facility] 7.45 [facility] pCO2 Art 36 35 - 45 [facility] mmHg [facility] pO2 Art 91 85 - 104 [facility] LABORATORY HCO3 Art 20.9 20.0 - [facility] 26.0 [facility] mmol/L [facility] LABORATORY BE Art -4.2 (L) -3.0 - 3.0 [facility] mmol/L [facility] Hgb Blood Gas 11.7 (L) 13.7 - [facility] 16.5 gm/dL [facility] O2HB Art 95.1 94.0 - [facility] 97.0 % [facility] COHB Art 0.6 % [...] [facility] FIO2 Art 40 % [facility] LABORATORY PF Ratio Art 228 [facility] LABORATORY Specimen Anatomical Collection Method Collection Time Receive d Time (Source) Location / / Volume Laterality Blood specimen 07/08/2017 4:13 PM 017 4:13 (specimen) EST PM EST Yuan Webber MD CHEMISTRY ORDERABLES Performing Organization Address City/[facility]/ZIP [facility] [place] [address] POCT Glucose (07/08/2017 4:01 PM EST) P athologist Signature POC Glucose 148 65 - 199 [facility] mg/dL [facility] Comment: Supplemental ranges: <140 mg/dL before meals <180 mg/dL all other times of the day Specimen Anatomical Collection Method Collection Time Receive d Time (Source) Location / / Volume Laterality Blood specimen 07/08/2017 4:01 PM 017 4:01 (specimen) EST PM EST Yuan Webber MD POINT OF CARE TEST ORDERABLE S Performing Organization Address City/[facility]/[place] [address] POCT Glucose (07/08/2017 3:21 PM EST) P athologist Signature POC Glucose 118 65 - 199 [facility] mg/dL [facility] Comment: Supplemental ranges: <140 mg/dL before meals <180 mg/dL all other times of the day Specimen Anatomical Collection Method Collection Time Receive d Time (Source) Location / / Volume Laterality Blood specimen 07/08/2017 3:21 PM 017 3:21 (specimen) EST PM EST Yuan Webber MD POINT OF CARE TEST ORDERABLE S Performing Organization Address City/State/ZIP Code Phon e Number [address] POCT Glucose (07/08/2017 2:01 PM EST) athologist Signature POC Glucose 129 65 - 199 [facility] mg/dL [facility] Comment: Supplemental ranges: <140 mg/dL before meals <180 mg/dL all other times of the day Specimen Anatomical Collection Method Collection Time Receive d Time (Source) Location / / Volume Laterality Blood specimen 07/08/2017 2:01 PM 017 2:01 (specimen) EST PM EST Yuan Webber MD POINT OF CARE TEST ORDERABLE S Performing Organization Address City/[facility]/ZIP Code Phon e Number [address] POCT Glucose (07/08/2017 11:53 AM EST) athologist Signature POC Glucose 156 65 - 199 [facility] mg/dL [facility] Comment: Supplemental ranges: <140 mg/dL before meals <180 mg/dL all other times of the day Specimen Anatomical Collection Method Collection Time Receive d Time (Source) Location / / Volume Laterality Blood specimen 07/08/2017 11:53 7 (specimen) AM EST 11:53 AM EST Yuan Webber MD POINT OF CARE TEST ORDERABLE S Performing Organization Address City/[facility]/ZIP Code Phon e Number [address] POCT Glucose (07/08/2017 11:04 AM EST) athologist Signature POC Glucose 181 65 - 199 [facility] mg/dL [facility] Comment: Supplemental ranges: <140 mg/dL before meals <180 mg/dL all other times of the day Specimen Anatomical Collection Method Collection Time Receive d Time (Source) Location / / Volume Laterality Blood specimen 07/08/2017 11:04 7 (specimen) AM EST 11:04 AM EST Yuan Webber MD POINT OF CARE TEST ORDERABLE S Performing Organization Address City/State/[place] [address] (ABNORMAL) POCT Glucose (07/08/2017 9:24 AM EST) athologist Signature POC Glucose 203 (H) 65 - 199 [facility] mg/dL [facility] Comment: Supplemental ranges: <140 mg/dL before meals <180 mg/dL all other times of the day Specimen Anatomical Collection Method Collection Time Receive d Time (Source) Location / / Volume Laterality Blood specimen 07/08/2017 9:24 AM 017 9:24 (specimen) EST AM EST Yuan Webber MD POINT OF CARE TEST ORDERABLE S Performing Organization Address City/State/[place] [address] APTT (07/08/2017 8:40 AM [...] Address City/[facility]/[place] [address] (ABNORMAL) Prothrombin Time (07/08/2017 [...] Organization Address City/State/[place] [address] (ABNORMAL) POCT Glucose (07/08/2017 7:38 AM EST) athologist Signature POC Glucose 232 (H) 65 - 199 [facility] mg/dL [facility] Comment: Supplemental ranges: <140 mg/dL before meals <180 mg/dL all other times of the day Specimen Anatomical Collection Method Collection Time Receive d Time (Source) Location / / Volume Laterality Blood specimen 07/08/2017 7:38 AM 017 7:38 (specimen) EST AM EST Yuan Webber MD POINT OF CARE TEST ORDERABLE S Performing Organization Address City/[facility]/[place] [address] (ABNORMAL) POCT Glucose (07/08/2017 7:07 AM EST) athologist Signature POC Glucose 234 (H) 65 - 199 [facility] mg/dL [facility] Comment: Supplemental ranges: <140 mg/dL before meals <180 mg/dL all other times of the day Specimen Anatomical Collection Method Collection Time Receive d Time (Source) Location / / Volume Laterality Blood specimen 07/08/2017 7:07 AM 017 7:07 (specimen) EST AM EST Yuan Webber MD POINT OF CARE TEST ORDERABLE S Performing Organization Address City/[facility]/[place] [address] (ABNORMAL) POCT Glucose (07/08/2017 6:04 AM EST) athologist Signature POC Glucose 225 (H) 65 - 199 [facility] mg/dL [facility] Comment: Supplemental ranges: <140 mg/dL before meals <180 mg/dL all other times of the day Specimen Anatomical Collection Method Collection Time Receive d Time (Source) Location / / Volume Laterality Blood specimen 07/08/2017 6:04 AM 017 6:04 (specimen) EST AM EST Yuan Webber MD POINT OF CARE TEST ORDERABLE S Performing Organization Address City/State/[place] [address] (ABNORMAL) POCT Glucose (07/08/2017 5:31 AM EST) athologist Signature POC Glucose 216 (H) 65 - 199 [facility] mg/dL [facility] Comment: Supplemental ranges: <140 mg/dL before meals <180 mg/dL all other times of the day Specimen Anatomical Collection Method Collection Time Receive d Time (Source) Location / / Volume Laterality Blood specimen 07/08/2017 5:31 AM 017 5:31 (specimen) EST AM EST Yuan Webber MD POINT OF CARE TEST ORDERABLE S Performing Organization Address City/State/[place] [address] (ABNORMAL) POCT Glucose (07/08/2017 4:52 AM EST) athologist Signature POC Glucose 257 (H) 65 - 199 [facility] mg/dL [facility] Comment: Supplemental ranges: <140 mg/dL before meals <180 mg/dL all other times of the day Specimen Anatomical Collection Method Collection Time Receive d Time (Source) Location / / Volume Laterality Blood specimen 07/08/2017 4:52 AM 017 4:52 (specimen) EST AM EST Daphne Shahid MD POINT OF CARE TEST ORDERABLE S Performing Organization Address City/State/[place] [address] (ABNORMAL) BLOOD GAS 2 ARTERIAL (07/08/2017 4:04 AM EST) Analysis Performed At Patho logist Time Signature pH Art 7.30 (L) 7.35 - [facility] 7.45 [facility] pCO2 Art 41 35 - 45 [facility] mmHg [facility] LAB[facility]ORY pO2 Art 83 (L) 85 - 104 [facility] LABORATORY HCO3 Art 19.6 (L) 20.0 - [facility] 26.0 [facility] mmol/L [facility] LABORATORY BE Art -6.8 (L) -3.0 - 3.0 [facility] mmol/L [facility]OR[facility]ORY Hgb Blood Gas 12.2 (L) 13.7 - [facility] 16.5 gm/dL [facility] O2HB Art 93.5 (L) 94.0 - [facility] 97.0 % [facility] COHB Art 0.4 % [facility] [...] [facility] Comment: Noted by legal instruments examiner. FIO2 Art 40 % [facility] LABORATORY PF Ratio Art 208 [facility] LABORATORY Specimen Anatomical Collection Method Collection Time Receive d Time (Source) Location / / Volume Laterality Blood specimen 07/08/2017 4:04 AM 017 4:04 (specimen) EST AM EST Daphne Shahid MD CHEMISTRY ORDERABLES Performing Organization Address City/State/ZIP Code Phon e Number [address] Scan, Peripheral Blood (07/08/2017 [...] Address City/[facility]/ZIP Code Phon e Number [address] (ABNORMAL) Differential, Automated (07/08/2017 4:00 AM EST) Patholo gist Method Time Signature Neutrophils % 85.4 % [facility] LABORATORY Neutr Abs (ANC) 16.07 (H) 1.70 - [facility] 6.10 [facility] x10(3)/[facility] L LABORATORY Lymphocytes % 3.5 % [facility] LABORATORY Lymphocytes Abs 0.6 (L) 0.9 - 3.2 [facility] x10(3)/[facility] LABORATORY Monocytes % 10.4 % [facility] LABORATORY Monocyte Abs 2.0 (H) 0.3 - 0.9 [facility] x10(3)/[facility] LABORATORY Eosinophils % 0.0 % [facility] LABORATORY Eosinophils Abs 0.0 0.0 - 0.4 [facility] x10(3)/[facility] LABORATORY Basophils % 0.1 % [facility] LABORATORY Basophils Abs 0.0 0.0 - 0.1 [facility] x10(3)/[facility] LABORATORY Immature Gran [...] City/State/[place] [address] (ABNORMAL) Hemogram (07/08/2017 4:00 AM EST) Analysis Performed At Patho logist Time Signature WBC 18.8 (H) 4.0 - 9.5 [facility] x10(3)/[facility] LABORATORY RBC 4.00 (L) 4.58 - [facility] 5.54 [facility] x10(6)/[facility] LABORATORY Hemoglobin 11.9 (L) 13.7 - [facility] 16.5 gm/dL [facility] LABORATORY Hematocrit 35.9 (L) 40.5 - [facility] 48.5 % [facility] LABORATORY MCV 89.8 82.9 - [facility] 93.1 [facility] LABORATORY MCH 29.8 27.5 - [facility] R[facility] 32.1 pg [facility] LABORATORY MCHC 33.1 32.0 - [facility] 35.7 gm/dL [facility] LAB[facility]ORY Platelets 232 145 - 357 [facility] x10(3)/[facility] LABORATORY RDWSD 47.6 (H) 36.0 - [facility]AN 45.[address] [facility] RDWCV 14.5 (H) 11.4 - [facility] R[facility]AN 13.8 % [facility] LABORATORY MPV 9.5 7.6 - 12.9 [facility] LABORATORY nRBC % Auto 0.0 % [facility] LABORATORY nRBC Abs Auto 0.000 0.000 - [facility] 0.000 [facility] x10(3)/[facility] LABORATORY Specimen Anatomical Collection Method Collection Time Receive d Time (Source) Location / / Volume Laterality Blood specimen 07/08/2017 4:00 AM 017 4:09 (specimen) EST AM EST Resulting Agency Comment Spec In Lab Yuan Webber MD HEMATOLOGY ORDERABLES Performing Organization Address City/[facility]/[place] [address] (ABNORMAL) Electrolytes panel (07/08/2017 4:00 AM EST) athologist Signature Sodium 139 135 - 145 [facility] mmol/L [facility] LABORATORY Potassium 4.7 3.5 - 5.0 [facility] mmol/L [facility] Comment: result rechecked-JLK Please [...] Address City/[facility]/[place] [address] (ABNORMAL) Cardiac Enzymes (LEB/CGP) (07/08/2017 4:00 AM EST) P athologist Signature Troponin-T 1.88 (H) 0.00 - [facility] 0.00 ng/mL [facility] Comment: The 99th percentile [...] additional sample may be indicated. Reference: Third [place] Definition of Myocardial Infarction. Journal of the [place] [employer] 2012;60:1581-98 CK, Total 413 (H) 0 - 200 unit/L [facility] LABORATORY Comment: result rechecked-K Specimen Anatomical Collection Method Collection Time Receive d Time (Source) Location / / Volume Laterality Blood specimen 07/08/2017 4:00 AM 017 4:09 (specimen) EST AM EST Resulting Agency Comment Spec In Lab Yuan Webber MD CHEMISTRY ORDERABLES Performing Organization Address City/State/[place] [address] (ABNORMAL) Glucose, fasting (07/08/2017 4:00 AM EST) athologist Signature Glucose 287 (H) 65 - 99 [facility] Fasting mg/dL [facility] Comment: ?Fasting* Glucose Interpretive [...] MD CHEMISTRY ORDERABLES Performing Organization Address City/[facility] Code Phon e Number [address] (ABNORMAL) Creatinine (07/08/2017 4:00 AM EST) Analysis Performed At Patho logist Time Signature Creatinine 1.55 (H) 0.80 - [facility] 1.50 mg/dL [facility] LABORATORY Estimated GFR 44 (L) >=60 [facility] LABORATORY Comment: The reported eGFR should be multiplied b y 1.2 for patients. The MDRD is not an appropriate measure o f renal function for patients with body mass extremes or in patients with acute kidney failure. http://[employer]/DHnkdep http://[employer]/DHMCnkf Specimen Anatomical Collection Method Collection Time Receive d Time (Source) Location / / Volume Laterality Blood specimen 07/08/2017 4:00 AM 017 4:09 (specimen) EST AM EST Resulting Agency Comment Spec In Lab Yuan Webber MD CHEMISTRY ORDERABLES Performing Organization Address City/[facility]/ZIP Code Phon e Number [address] BUN (07/08/2017 4:00 AM EST) P athologist Signature BUN 16 10 - 20 [facility] mg/dL [facility] LABORATORY Specimen Anatomical Collection Method Collection Time Receive d Time (Source) Location / / Volume Laterality Blood specimen 07/08/2017 4:00 AM 017 4:09 (specimen) EST AM EST Resulting Agency Comment Spec In Lab Yuan Webber MD CHEMISTRY ORDERABLES Performing Organization Address City/[facility]/ZIP Code Phon e Number [address] (ABNORMAL) POCT Glucose (07/08/2017 3:00 AM EST) P athologist Signature POC Glucose 273 (H) 65 - 199 [facility] mg/dL [facility] Comment: Supplemental ranges: <140 mg/dL before meals <180 mg/dL all other times of the day Specimen Anatomical Collection Method Collection Time Receive d Time (Source) Location / / Volume Laterality Blood specimen 07/08/2017 3:00 AM 017 3:00 (specimen) EST AM EST Daphne Shahid MD POINT OF CARE TEST ORDERABLE S Performing Organization Address City/[facility]/[place] [address] (ABNORMAL) POCT Glucose (07/08/2017 1:57 AM EST) P athologist Signature POC Glucose 288 (H) 65 - 199 [facility] mg/dL [facility] Comment: Supplemental ranges: <140 mg/dL before meals <180 mg/dL all other times of the day Specimen Anatomical Collection Method Collection Time Receive d Time (Source) Location / / Volume Laterality Blood specimen 07/08/2017 1:57 AM 017 1:57 (specimen) EST AM EST Daphne Shahid MD POINT OF CARE TEST ORDERABLE S Performing Organization Address City/[facility]/[place] [address] (ABNORMAL) POCT Glucose (07/08/2017 1:01 AM EST) P athologist Signature POC Glucose 315 (H) 65 - 199 [facility] mg/dL [facility] Comment: Supplemental ranges: <140 mg/dL before meals <180 mg/dL all other times of the day Specimen Anatomical Collection Method Collection Time Receive d Time (Source) Location / / Volume Laterality Blood specimen 07/08/2017 1:01 AM 017 1:01 (specimen) EST AM EST Daphne Shahid MD POINT OF CARE TEST ORDERABLE S Performing Organization Address City/State/[place] [address] (ABNORMAL) BLOOD GAS 2 ARTERIAL (07/08/2017 12:09 AM EST) athologist Signature pH Art 7.26 7.35 - [facility] (Critical) 7.45 [facility] Comment: Noted by legal instruments examiner. pCO2 Art 41 35 - 45 mmHg [...] [facility] COHB Art 0.2 % [facility] Comment: Noted by legal instruments examiner. FIO2 Art 40 % [facility] LABORATORY PF Ratio Art 240 [facility] LAB[facility]ORY Specimen Anatomical Collection Method Collection Time Receive d Time (Source) Location / / Volume Laterality Blood specimen Arterial Draw / 07/08/2017 12:09 2016 5:31 (specimen) Unknown AM EST AM EST Resulting Agency Comment Spec In Lab Samy Maldonado MD CHEMISTRY ORDERABLES Performing Organization Address City/[facility]/[place] [address] (ABNORMAL) POCT Glucose (07/07/2017 10:56 PM EST) P athologist Signature POC Glucose 292 (H) 65 - 199 [facility] mg/dL [facility] Comment: Supplemental ranges: <140 mg/dL before meals <180 mg/dL all other times of the day Specimen Anatomical Collection Method Collection Time Receive d Time (Source) Location / / Volume Laterality Blood specimen 07/07/2017 10:56 7 (specimen) PM EST 10:56 PM EST Daphne Shahid MD POINT OF CARE TEST ORDERABLE S Performing Organization Address City/State/[place] [address] (ABNORMAL) BLOOD GAS 2 ARTERIAL (07/07/2017 10:04 PM EST) P athologist Signature pH Art 7.22 7.35 - [facility] (Critical) 7.45 [facility] Comment: Noted by legal instruments examiner. pCO2 Art 42 35 - 45 mmHg [...] [facility] COHB Art 0.7 % [facility] Comment: Noted by legal instruments examiner. FIO2 Art 40 % [facility] LABORATORY PF Ratio Art 235 [facility] LAB[facility]ORY Specimen Anatomical Collection Method Collection Time Receive d Time (Source) Location / / Volume Laterality Blood specimen 07/07/2017 10:04 7 (specimen) PM EST 10:04 PM EST Daphne Shahid MD CHEMISTRY ORDERABLES Performing Organization Address City/State/[place] [address] (ABNORMAL) Hemoglobin (07/07/2017 10:00 PM EST) athologist Signature Hemoglobin 12.8 (L) 13.7 - [facility] 16.5 gm/dL [facility] LABOR[facility] Specimen Anatomical Collection Method Collection Time Receive d Time (Source) Location / / Volume Laterality Blood specimen 07/07/2017 10:00 7 (specimen) PM EST 10:13 PM EST Resulting Agency Comment Spec In Lab Yuan Webber MD HEMATOLOGY ORDERABLES Performing Organization Address City/[facility] Phon e Number [address] (ABNORMAL) Potassium (07/07/2017 10:00 PM EST) athologist [facility] Potassium 3.4 (L) 3.5 - 5.[address] [facility] mmol/L [facility] Comment: Please note: ??Patients [...] Webber MD CHEMISTRY ORDERABLES Performing Organization Address [facility] [place] [address] (ABNORMAL) POCT Glucose (07/07/2017 8:49 PM EST) athologist Signature POC Glucose 241 (H) 65 - 199 [facility] mg/dL [facility] Comment: Supplemental ranges: <140 mg/dL before meals <180 mg/dL all other times of the day Specimen Anatomical Collection Method Collection Time Receive d Time (Source) Location / / Volume Laterality Blood specimen 07/07/2017 8:49 PM 017 8:49 (specimen) EST PM EST Daphne Shahid MD POINT OF CARE TEST ORDERABLE S Performing Organization Address City/[facility]/ZIP Code Phon e Number [address] Prepare Albumin 5% in [...] Address City/[facility]/ZIP Code Phon e Number [address] EKG 12 Lead (07/07/2017 7:17 PM EST) Component Value Ref Range Test Analysis Performed Pathologis t Method Time At Signature Ventricular rate 75 BPM MUSE SYSTEM Atrial Rate 75 BPM MUSE SYSTEM P-R Interval 168 ms MUSE SYSTEM QRS Duration 104 ms MUSE SYSTEM Q-T Interval 462 ms MUSE SYSTEM QTC Calculated 515 ms MUSE SYSTEM (Bezet) Calculated P [place] 52 degrees MUSE SYSTEM Calculated R [place] -40 degrees MUSE SYSTEM Calculated T [place] 39 degrees MUSE SYSTEM INTERPRETATION Normal sinus [...] athologist Signature pH Art 7.21 7.35 - [facility] (Critical) 7.45 [facility] Comment: Noted by legal instruments examiner. pCO2 Art 50 (H) 35 - 45 [...] [facility] COHB Art 0.5 % [facility] Comment: Noted by legal instruments examiner. Please note: Patients with WBC >100,000 may [...] [facility] Comment: Noted by legal instruments examiner. FIO2 Art 100 % [facility] PF Ratio Art 238 [facility] Specimen Anatomical Collection Method Collection Time Receive d Time (Source) Location / / Volume Laterality Blood specimen 07/07/2017 6:57 PM 017 6:57 (specimen) EST PM EST Daphne Shahid MD CHEMISTRY ORDERABLES Performing Organization Address City/State/[place] [address] (ABNORMAL) BLOOD GAS 2 ARTERIAL (07/07/2017 5:31 PM EST) athologist Signature pH Art 7.29 7.35 - [facility] (Critical) 7.45 [facility] Comment: Noted by legal instruments examiner. pCO2 Art 48 (H) 35 - 45 [...] [facility] COHB Art 0.3 % [place] [...] Address City/[facility]/[place] [address] Fibrinogen (07/07/2017 5:30 PM EST) athologist Signature Fibrinogen 224 180 - 510 [facility] mg/dL [facility] Comment: Called by: JEET, [...] Address City/[facility]/ZIP Code Phon e Number [address] APTT (07/07/2017 5:30 PM [...] HEMATOLOGY ORDERABLES Performing Organization Address City/[facility]/ZIP [facility] Phon e Number [address] (ABNORMAL) Prothrombin Time (07/07/2017 [...] City/State/ZIP Code Phon e Number [place] [id number] (ABNORMAL) Hemogram (07/07/2017 5:30 PM EST) P athologist Signature WBC 19.6 (H) 4.0 - 9.5 [facility] x10(3)/[facility] LABORATORY RBC 3.08 (L) 4.58 - [facility] 5.54 [facility] x10(6)/[facility] LABORATORY Hemoglobin 9.2 (L) 13.7 - [facility] 16.5 gm/dL [facility] Hematocrit 28.0 (L) 40.5 - [facility] 48.5 % [facility] Comment: This result has [...] LABORATORY MPV 9.5 7.6 - 12.9 fL [facility] nRBC % Auto 0.0 % [facility] nRBC Abs Auto 0.000 0.000 - 0.000 x10(3)/[facility] LABORATORY Specimen Anatomical Collection Method Collection Time Receive d Time (Source) Location / / Volume Laterality Blood specimen 07/07/2017 5:30 PM 017 5:34 (specimen) EST PM EST Resulting Agency Comment Spec In Lab Yifan Perez MD HEMATOLOGY ORDERABLES Performing Organization Address [facility] Phon e Number [address] Prepare Platelets, Apheresis (07/07/2017 5:00 PM EST) athologist Signature Dispensed? Yes [facility] Specimen Anatomical Collection Method Collection Time Receive d Time (Source) Location / / Volume Laterality Blood specimen 07/07/2017 5:00 PM 017 4:58 (specimen) EST PM EST Daphne Shahid MD BLOOD BANK ORDERABLES Performing Organization Address [facility] Phon e Number [address] Platelet count (07/07/2017 4:55 PM EST) athologist Signature Platelets 177 145 - 357 [facility] x10(3)/[facility] LABORATORY Plat Immature 1.5 0.0 - 7.4 [facility] Comment: Limitation of the Immature Platelet Frac tion (IPF)-May be less reliable when the platelet count is less than 96v237/u L due to statistical imprecision. The IPF [...] in a decreased state of production. References: [employer] The Clinical Value of the Immature Platelet Fraction (IPF) in Cell Recovery Document Number 10-1143 12/2010 [employer] The Role of the Imm ature [...] Address City/[facility]/[place] [address] (ABNORMAL) Hemoglobin and Hematocrit, blood (07/07/2017 4:55 PM EST) P athologist Signature Hemoglobin 9.1 (L) 13.7 - 16.5 [facility] gm/dL [facility] Comment: This result has [...] Address City/[facility]/[place] [address] (ABNORMAL) BLOOD GAS 2 ARTERIAL (07/07/2017 4:38 PM EST) Analysis Performed At Patho logist Time Signature pH Art 7.37 7.35 - [facility] 7.45 [facility] pCO2 Art 44 35 - 45 [facility] LABORATORY pO2 Art 322 (H) 85 - 104 [facility] HCO3 Art 24.9 20.0 - [facility] 26.0 [facility] mmol/L [facility] LABORATORY BE Art -0.4 -3.0 - 3.0 [facility] mmol/L [facility] Hgb Blood Gas 10.1 (L) 13.7 - [facility] 16.5 gm/dL [facility] O2HB Art 98.7 (H) 94.0 - [facility] 97.0 % [facility] COHB Art 0.1 % [facility] Comment: Noted by legal instruments examiner. Note: ??Total bilirubin higher than 20 m [...] City/State/[place] [address] (ABNORMAL) BLOOD GAS 2 VENOUS (07/07/2017 4:06 PM EST) Analysis Performed At Patho logist Time Signature pH Cody 7.31 (L) 7.32 - [facility] 7.42 [facility] pCO2 Cody 47 41 - 51 [facility] LABORATORY pO2 Cody 53 (H) 25 - 40 [facility] LABORATORY HCO3 Cody 22.7 mmol/L [facility] BE Cody -3.7 mmol/L [facility] Hgb Blood Gas 10.2 (L) 13.7 - [facility] 16.5 gm/dL [facility] O2HB Cody 81.0 % [...] [facility] Comment: Noted by legal instruments examiner. Note: ??Total bilirubin higher than 20 m [...] [facility] BGas Source Venous [facility] Specimen Anatomical Collection Method Collection Time Receive d Time (Source) Location / / Volume Laterality Blood specimen 07/07/2017 4:06 PM 017 4:06 (specimen) EST PM EST Daphne Shahid MD CHEMISTRY ORDERABLES Performing Organization Address City/State/[place] [address] (ABNORMAL) BLOOD GAS 2 ARTERIAL (07/07/2017 4:05 PM EST) Analysis Performed At Patho logist Time Signature pH Art 7.36 7.35 - [facility] 7.45 [facility] pCO2 Art 40 35 - 45 [facility] LABORATORY pO2 Art 282 (H) 85 - 104 [facility] LABORATORY HCO3 Art 22.1 20.0 - [facility] 26.0 [facility] mmol/L [facility] LABORATORY BE Art -3.4 (L) -3.0 - 3.0 [facility] mmol/L [facility] Hgb Blood Gas 10.2 (L) 13.7 - [facility] 16.5 gm/dL [facility] O2HB Art 98.4 (H) 94.0 - [facility] 97.0 % [facility] COHB Art 0.3 % [...] [facility] Comment: Noted by legal instruments examiner. Note: ??Total bilirubin higher than 20 m [...] City/State/[place] [address] (ABNORMAL) BLOOD GAS 2 ARTERIAL (07/07/2017 2:29 PM EST) Analysis Performed At Patho logist Time Signature pH Art 7.43 7.35 - [facility] 7.45 [facility] pCO2 Art 36 35 - 45 [facility] LABORATORY pO2 Art 221 (H) 85 - 104 [facility] LABORATORY HCO3 Art 23.2 20.0 - [facility] 26.0 [facility] mmol/L [facility] LABORATORY BE Art -1.2 -3.0 - 3.0 [facility] mmol/L [facility] Hgb Blood Gas 13.9 13.7 - [facility] 16.5 gm/dL [facility] O2HB Art 97.8 (H) 94.0 - [facility] 97.0 % [facility] COHB Art 1.1 % [...] MD CHEMISTRY ORDERABLES Performing Organization Address City/[facility] [place] [address] Prepare Coag Factors (Non-Hemophilia) (07/07/2017 1:25 PM EST) P athologist Signature Dispensed? Yes [facility] Specimen Anatomical Collection Method Collection Time Receive d Time (Source) Location / / Volume Laterality Blood specimen 07/07/2017 1:25 PM 017 1:21 (specimen) EST PM EST Daphne Shahid MD BLOOD BANK ORDERABLES Performing Organization Address City/[facility]/[place] [address] Prepare RBC (07/07/2017 1:10 PM EST) P athologist Signature Dispensed? Yes [facility] Specimen Anatomical Collection Method Collection Time Receive d Time (Source) Location / / Volume Laterality Blood specimen 07/07/2017 1:10 PM 017 1:05 (specimen) EST PM EST Daphne Shahid MD BLOOD BANK ORDERABLES Performing Organization Address City/[facility]/[place] [address] POCT Glucose (07/07/2017 11:56 AM EST) athologist Signature POC Glucose 188 65 - 199 [facility] mg/dL [facility] Comment: Supplemental ranges: <140 mg/dL before meals <180 mg/dL all other times of the day Specimen Anatomical Collection Method Collection Time Receive d Time (Source) Location / / Volume Laterality Blood specimen 07/07/2017 11:56 7 (specimen) AM EST 11:56 AM EST Daphne Shahid MD POINT OF CARE TEST ORDERABLE S Performing Organization Address City/State/ZIP Code Phon e Number [address] POCT Glucose (07/07/2017 11:05 AM EST) athologist Signature POC Glucose 168 65 - 199 [facility] mg/dL [facility] Comment: Supplemental ranges: <140 mg/dL before meals <180 mg/dL all other times of the day Specimen Anatomical Collection Method Collection Time Receive d Time (Source) Location / / Volume Laterality Blood specimen 07/07/2017 11:05 7 (specimen) AM EST 11:05 AM EST Daphne Shahid MD POINT OF CARE TEST ORDERABLE S Performing Organization Address City/State/[place] [address] POCT Glucose (07/07/2017 10:02 AM EST) athologist Signature POC Glucose 191 65 - 199 [facility] mg/dL [facility] Comment: Supplemental ranges: <140 mg/dL before meals <180 mg/dL all other times of the day Specimen Anatomical Collection Method Collection Time Receive d Time (Source) Location / / Volume Laterality Blood specimen 07/07/2017 10:02 7 (specimen) AM EST 10:02 AM EST Daphne Shahid MD POINT OF CARE TEST ORDERABLE S Performing Organization Address City/State/[place] [address] POCT Glucose (07/07/2017 7:53 AM EST) athologist Signature POC Glucose 178 65 - 199 [facility] mg/dL [facility] Comment: Supplemental ranges: <140 mg/dL before meals <180 mg/dL all other times of the day Specimen Anatomical Collection Method Collection Time Receive d Time (Source) Location / / Volume Laterality Blood specimen 07/07/2017 7:53 AM 017 7:53 (specimen) EST AM EST Daphne Shahid MD POINT OF CARE TEST ORDERABLE S Performing Organization Address City/State/[place] [address] POCT Glucose (07/07/2017 7:03 AM EST) athologist Signature POC Glucose 188 65 - 199 [facility] mg/dL [facility] Comment: Supplemental ranges: <140 mg/dL before meals <180 mg/dL all other times of the day Specimen Anatomical Collection Method Collection Time Receive d Time (Source) Location / / Volume Laterality Blood specimen 07/07/2017 7:03 AM 017 7:03 (specimen) EST AM EST Daphne Shahid MD POINT OF CARE TEST ORDERABLE S Performing Organization Address City/State/[place] [address] (ABNORMAL) POCT Glucose (07/07/2017 6:17 AM EST) athologist Signature POC Glucose 207 (H) 65 - 199 [facility] mg/dL [facility] Comment: Supplemental ranges: <140 mg/dL before meals <180 mg/dL all other times of the day Specimen Anatomical Collection Method Collection Time Receive d Time (Source) Location / / Volume Laterality Blood specimen 07/07/2017 6:17 AM 017 6:17 (specimen) EST AM EST Daphne Shahid MD POINT OF CARE TEST ORDERABLE S Performing Organization Address City/State/[place] [address] Differential, Automated (07/07/2017 5:15 AM EST) P athologist Signature Neutrophils % 69.7 % [facility] Neutr Abs (ANC) 5.32 1.70 - [facility] 6.10 [facility] x10(3)/[facility] LABORATORY Lymphocytes % 16.3 % [facility] Lymphocytes Abs 1.2 0.9 - 3.2 [facility] x10(3)/[facility] LABORATORY Monocytes % 10.5 % [facility] Monocyte Abs 0.8 0.3 - 0.9 [facility] x10(3)/[facility] LABORATORY Eosinophils % 2.5 % [facility] Eosinophils Abs 0.2 0.0 - 0.4 [facility] x10(3)/[facility] LABORATORY Basophils % 0.7 % [facility] Basophils Abs 0.0 0.0 - 0.1 [facility] x10(3)/[facility] LABORATORY Immature Gran [...] Melisa Gran Abs 0.02 0.00 - 0.04 x10(3)/[facility] LABORATORY Specimen Anatomical Collection Method Collection Time Receive d Time (Source) Location / / Volume Laterality Blood specimen 07/07/2017 5:15 AM 017 5:34 (specimen) EST AM EST Resulting Agency Comment Spec In Lab Daphne Shahid MD HEMATOLOGY ORDERABLES Performing Organization Address City/State/[place] [address] (ABNORMAL) Hemogram (07/07/2017 5:15 AM EST) Analysis Performed At Patho logist Time Signature WBC 7.6 4.0 - 9.5 [facility] x10(3)/[facility] LABORATORY RBC 4.82 4.58 - [facility] 5.54 [facility] x10(6)/[facility] LABORATORY Hemoglobin 14.4 13.7 - [facility] 16.5 gm/dL [facility] Hematocrit 42.1 40.5 - [facility] 48.5 % [facility] MCV 87.3 82.9 - [facility] 93.1 [facility] LABORATORY MCH 29.9 27.5 - [facility] 32.1 pg [facility] MCHC 34.2 32.0 - [facility] 35.7 gm/dL [facility] Platelets 188 145 - 357 [facility] x10(3)/[facility] LABORATORY RDWSD 45.1 (H) 36.0 - [facility] 45.0 [facility] LABORATORY RDWCV 14.3 (H) 11.4 - [facility] 13.8 % [facility] MPV 9.4 7.6 - 12.9 [facility] LABORATORY nRBC % Auto 0.0 % [facility] nRBC Abs Auto 0.000 0.000 - [facility] 0.000 [facility] x10(3)/[facility] LABORATORY Specimen Anatomical Collection Method Collection Time Receive d Time (Source) Location / / Volume Laterality Blood specimen 07/07/2017 5:15 AM 017 5:34 (specimen) EST AM EST Resulting Agency Comment Spec In Lab Daphne Shahid MD HEMATOLOGY ORDERABLES Performing Organization Address City/State/[place] [address] (ABNORMAL) APTT (07/07/2017 5:15 [...] Address City/State/ZIP Code Phon e Number [address] Magnesium (07/07/2017 5:15 AM EST) athologist Signature Magnesium 0.94 0.69 - 1.07 [facility] mmol/L [facility] Specimen Anatomical Collection Method Collection Time Receive d Time (Source) Location / / Volume Laterality Blood specimen 07/07/2017 5:15 AM 017 5:34 (specimen) EST AM EST Resulting Agency Comment Spec In Lab Daphne Shahid MD CHEMISTRY ORDERABLES Performing Organization Address City/[facility] Code Phon e Number [address] (ABNORMAL) Basic Metabolic Panel (non-fasting) (07/07/2017 5:15 AM EST) athologist Signature Glucose Lvl 203 (H) 65 - 199 [facility] mg/dL [facility] Comment: [...] or in patients with acute kidney failure. http://[employer]/DHnkdep http://[employer]/DHMCnkf Specimen Anatomical Collection Method Collection Time Receive d Time (Source) Location / / Volume Laterality Blood specimen 07/07/2017 5:15 AM 017 5:34 (specimen) EST AM EST Resulting Agency Comment Spec In Lab Daphne Shahid MD CHEMISTRY ORDERABLES Performing Organization Address City/State/[place] [address] (ABNORMAL) Cardiac Enzymes (LEB/CGP) (07/07/2017 5:15 AM EST) P athologist Signature Troponin-T 2.07 (H) 0.00 [facility] ng/mL [facility] Comment: The 99th percentile [...] additional sample may be indicated. Reference: Third [place] Definition of Myocardial Infarction. Journal of the [...] Address City/State/ZIP Code Phon e Number [address] POCT Glucose (07/07/2017 5:01 AM EST) athologist Signature POC Glucose 182 65 - 199 [facility] mg/dL [facility] Comment: Supplemental ranges: <140 mg/dL before meals <180 mg/dL all other times of the day Specimen Anatomical Collection Method Collection Time Receive d Time (Source) Location / / Volume Laterality Blood specimen 07/07/2017 5:01 AM 017 5:01 (specimen) EST AM EST Daphne Shahid MD POINT OF CARE TEST ORDERABLE S Performing Organization Address City/State/ZIP Code Phon e Number [address] POCT Glucose (07/07/2017 4:08 AM EST) athologist Signature POC Glucose 199 65 - 199 [facility] Comment: Supplemental ranges: <140 mg/dL before meals <180 mg/dL all other times of the day Specimen Anatomical Collection Method Collection Time Receive d Time (Source) Location / / Volume Laterality Blood specimen 07/07/2017 4:08 AM 017 4:08 (specimen) EST AM EST Daphne Shahid MD POINT OF CARE TEST ORDERABLE S Performing Organization Address City/State/ZIP Code Phon e Number [address] POCT Glucose (07/07/2017 3:03 AM EST) athologist Signature POC Glucose 188 65 - 199 [facility]/dL [facility] Comment: Supplemental ranges: <140 mg/dL before meals <180 mg/dL all other times of the day Specimen Anatomical Collection Method Collection Time Receive d Time (Source) Location / / Volume Laterality Blood specimen 07/07/2017 3:03 AM 017 3:03 (specimen) EST AM EST Daphne Shahid MD POINT OF CARE TEST ORDERABLE S Performing Organization Address City/[facility]/[place] [address] (ABNORMAL) POCT Glucose (07/07/2017 2:08 AM EST) athologist Signature POC Glucose 200 (H) 65 - 199 [facility] mg/dL [facility] Comment: Supplemental ranges: <140 mg/dL before meals <180 mg/dL all other times of the day Specimen Anatomical Collection Method Collection Time Receive d Time (Source) Location / / Volume Laterality Blood specimen 07/07/2017 2:08 AM 017 2:08 (specimen) EST AM EST Daphne Shahid MD POINT OF CARE TEST ORDERABLE S Performing Organization Address City/[facility]/[place] [address] (ABNORMAL) POCT Glucose (07/07/2017 1:31 AM EST) athologist Signature POC Glucose 209 (H) 65 - 199 [facility] mg/dL [facility] Comment: Supplemental ranges: <140 mg/dL before meals <180 mg/dL all other times of the day Specimen Anatomical Collection Method Collection Time Receive d Time (Source) Location / / Volume Laterality Blood specimen 07/07/2017 1:31 AM 017 1:31 (specimen) EST AM EST Daphne Shahid MD POINT OF CARE TEST ORDERABLE S Performing Organization Address City/[facility]/[place] [address] XR Chest PA or [...] Signature POC Glucose 161 65 - 199 [facility] mg/dL [facility] Comment: Supplemental ranges: <140 mg/dL before meals <180 mg/dL all other times of the day Specimen Anatomical Collection Method Collection Time Receive d Time (Source) Location / / Volume Laterality Blood specimen 07/07/2017 12:07 7 (specimen) AM EST 12:07 AM EST Daphne Shahid MD POINT OF CARE TEST ORDERABLE S Performing Organization Address City/State/[place] [address] (ABNORMAL) APTT (07/07/2017 12:00 [...] Address City/State/ZIP Code Phon e Number [address] POCT Glucose (07/06/2017 9:55 PM EST) athologist Signature POC Glucose 109 65 - 199 [facility] mg/dL [facility] Comment: Supplemental ranges: <140 mg/dL before meals <180 mg/dL all other times of the day Specimen Anatomical Collection Method Collection Time Receive d Time (Source) Location / / Volume Laterality Blood specimen 07/06/2017 9:55 PM 017 9:55 (specimen) EST PM EST Daphne Shahid MD POINT OF CARE TEST ORDERABLE S Performing Organization Address City/[facility]/ZIP Code Phon e Number [address] POCT Glucose (07/06/2017 9:04 PM EST) athologist Signature POC Glucose 120 65 - 199 [facility] mg/dL [facility] Comment: Supplemental ranges: <140 mg/dL before meals <180 mg/dL all other times of the day Specimen Anatomical Collection Method Collection Time Receive d Time (Source) Location / / Volume Laterality Blood specimen 07/06/2017 9:04 PM 017 9:04 (specimen) EST PM EST Daphne Shahid MD POINT OF CARE TEST ORDERABLE S Performing Organization Address City/[facility]/ZIP Code Phon e Number [address] POCT Glucose (07/06/2017 7:45 PM EST) athologist Signature POC Glucose 158 65 - 199 [place] mg/dL [facility] Comment: Supplemental ranges: <140 mg/dL before meals <180 mg/dL all other times of the day Specimen Anatomical Collection Method Collection Time Receive d Time (Source) Location / / Volume Laterality Blood specimen 07/06/2017 7:45 PM 017 7:45 (specimen) EST PM EST Daphne Shahid MD POINT OF CARE TEST ORDERABLE S Performing Organization Address City/[facility]/[place] [address] Potassium (07/06/2017 7:40 PM EST) athologist Signature Potassium 3.9 3.5 - 5.0 [facility] mmol/L [facility] Comment: Please note: ??Patients [...] Address City/[facility]/[place] [address] (ABNORMAL) Cardiac Enzymes (LEB/CGP) (07/06/2017 7:40 PM EST) athologist Signature Troponin-T 2.27 (H) 0.00 - [place] RYAN 0.00 ng/mL [facility] Comment: The 99th percentile [...] additional sample may be indicated. Reference: Third [place] Definition of Myocardial Infarction. Journal of the [...] Address City/[facility]/[place] [address] (ABNORMAL) POCT Glucose (07/06/2017 7:13 PM EST) P athologist Signature POC Glucose 200 (H) 65 - 199 [facility] mg/dL [facility] Comment: Supplemental ranges: <140 mg/dL before meals <180 mg/dL all other times of the day Specimen Anatomical Collection Method Collection Time Receive d Time (Source) Location / / Volume Laterality Blood specimen 07/06/2017 7:13 PM 017 7:13 (specimen) EST PM EST Daphne Shahid MD POINT OF CARE TEST ORDERABLE S Performing Organization Address City/[facility]/[place] [address] (ABNORMAL) APTT (07/06/2017 6:15 [...] Address City/[facility]/[place] [address] (ABNORMAL) POCT Glucose (07/06/2017 6:03 PM EST) athologist Signature POC Glucose 236 (H) 65 - 199 [place]AN mg/dL [facility] Comment: Supplemental ranges: <140 mg/dL before meals <180 mg/dL all other times of the day Specimen Anatomical Collection Method Collection Time Receive d Time (Source) Location / / Volume Laterality Blood specimen 07/06/2017 6:03 PM 017 6:03 (specimen) EST PM EST Daphne Shahid MD POINT OF CARE TEST ORDERABLE S Performing Organization Address City/[facility]/[place] [address] (ABNORMAL) POCT Glucose (07/06/2017 5:01 PM EST) athologist Signature POC Glucose 235 (H) 65 - 199 [place] mg/dL [facility] Comment: Supplemental ranges: <140 mg/dL before meals <180 mg/dL all other times of the day Specimen Anatomical Collection Method Collection Time Receive d Time (Source) Location / / Volume Laterality Blood specimen 07/06/2017 5:01 PM 017 5:01 (specimen) EST PM EST Daphne Shahid MD POINT OF CARE TEST ORDERABLE S Performing Organization Address City/[facility]/[place] [address] (ABNORMAL) POCT Glucose (07/06/2017 4:06 PM EST) athologist Signature POC Glucose 202 (H) 65 - 199 [place] mg/dL [facility] Comment: Supplemental ranges: <140 mg/dL before meals <180 mg/dL all other times of the day Specimen Anatomical Collection Method Collection Time Receive d Time (Source) Location / / Volume Laterality Blood specimen 07/06/2017 4:06 PM 017 4:06 (specimen) EST PM EST Daphne Shahid MD POINT OF CARE TEST ORDERABLE S Performing Organization Address City/State/ZIP Code Phon e Number [address] POCT Glucose (07/06/2017 2:59 PM EST) athologist Signature POC Glucose 178 65 - 199 [facility] mg/dL [facility] Comment: Supplemental ranges: <140 mg/dL before meals <180 mg/dL all other times of the day Specimen Anatomical Collection Method Collection Time Receive d Time (Source) Location / / Volume Laterality Blood specimen 07/06/2017 2:59 PM 017 2:59 (specimen) EST PM EST Daphne Shahid MD POINT OF CARE TEST ORDERABLE S Performing Organization Address City/[facility]/[place] [address] (ABNORMAL) Cardiac Enzymes (LEB/CGP) (07/06/2017 2:10 PM EST) athologist Signature Troponin-T 2.34 (H) 0.00 - [place] 0.00 ng/mL [facility] Comment: The 99th percentile [...] additional sample may be indicated. Reference: Third [place] Definition of Myocardial Infarction. Journal of the [place] College of [employer]iology 2012;60:1581-98 CK, Total 101 0 - 200 unit/L [facility] Specimen Anatomical Collection Method Collection Time Receive d Time (Source) Location / / Volume Laterality Blood specimen 07/06/2017 2:10 PM 017 2:26 (specimen) EST PM EST Resulting Agency Comment Spec In Lab Daphne Shahid MD CHEMISTRY ORDERABLES Performing Organization Address [facility] Phon e Number [address] POCT Glucose (07/06/2017 2:08 PM EST) P athologist Signature POC Glucose 192 65 - 199 [facility] mg/dL [facility] Comment: Supplemental ranges: <140 mg/dL before meals <180 mg/dL all other times of the day Specimen Anatomical Collection Method Collection Time Receive d Time (Source) Location / / Volume Laterality Blood specimen 07/06/2017 2:08 PM 017 2:08 (specimen) EST PM EST Daphne Shahid MD POINT OF CARE TEST ORDERABLE S Performing Organization Address City/[facility]/[place] [address] POCT Glucose (07/06/2017 1:04 PM EST) P athologist Signature POC Glucose 162 65 - 199 [facility] mg/dL [facility] Comment: Supplemental ranges: <140 mg/dL before meals <180 mg/dL all other times of the day Specimen Anatomical Collection Method Collection Time Receive d Time (Source) Location / / Volume Laterality Blood specimen 07/06/2017 1:04 PM 017 1:04 (specimen) EST PM EST Daphne Shahid MD POINT OF CARE TEST ORDERABLE S Performing Organization Address City/[facility]/[place] [address] [facility] [address] POCT Glucose (07/06/2017 12:05 PM EST) P athologist Signature POC Glucose 196 65 - 199 [facility] mg/dL [facility] Comment: Supplemental ranges: <140 mg/dL before meals <180 mg/dL all other times of the day Specimen Anatomical Collection Method Collection Time Receive d Time (Source) Location / / Volume Laterality Blood specimen 07/06/2017 12:05 7 (specimen) PM EST 12:05 PM EST Daphne Shahid MD POINT OF CARE TEST ORDERABLE S Performing Organization Address City/[facility]/ZIP Code Phon e Number [address] EKG 12 Lead (07/06/2017 12:00 PM EST) Component Value Ref Range Test Analysis Performed Pathologis t Method Time At Signature Ventricular rate 91 BPM MUSE SYSTEM Atrial Rate 91 BPM MUSE SYSTEM P-R Interval 140 ms MUSE SYSTEM QRS Duration 94 ms MUSE SYSTEM Q-T Interval 394 ms MUSE SYSTEM QTC Calculated 484 ms MUSE SYSTEM (Bezet) Calculated P [place] 36 degrees MUSE SYSTEM Calculated R [place] -19 degrees MUSE SYSTEM Calculated T [place] 104 degrees MUSE SYSTEM INTERPRETATION Normal sinus rhythm MUSE SYSTEM 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) ST & T wave abnormality, consider lateral ischemia Abnormal ECG When compared with ECG of 05-JUL-2017 20:39, No significant change was found Confirmed by MD Luci, Taurus Braun ([id number]) on 07/06/2017 5:07:33 PM Specimen Anatomical Collection [...] Address City/[facility]/[place] [address] Antibody screen (07/06/2017 12:00 PM EST) Patholo gist Method Time Signature Ab Screen Negative [facility] LABORATORY Expires at 07/09/2017 [facility] [id number] on: [facility] Specimen Anatomical Collection Method Collection Time Receive d Time (Source) Location / / Volume Laterality Blood specimen 07/06/2017 12:00 7 (specimen) PM EST 12:24 PM EST Resulting Agency Comment Spec In Lab Daphne Shahid MD BLOOD BANK ORDERABLES Performing Organization Address City/[facility]/[place] [address] ABO/Rh Typing (07/06/2017 12:00 [...] Address City/[facility]/[place] [address] Prothrombin Time (07/06/2017 11:24 [...] Address City/[facility]/ZIP Code Phon e Number [address] (ABNORMAL) APTT (07/06/2017 11:24 [...] Address City/[facility]/[place] [address] POCT Glucose (07/06/2017 11:02 AM EST) P athologist Signature POC Glucose 187 65 - 199 [facility] mg/dL [facility] Comment: Supplemental ranges: <140 mg/dL before meals <180 mg/dL all other times of the day Specimen Anatomical Collection Method Collection Time Receive d Time (Source) Location / / Volume Laterality Blood specimen 07/06/2017 11:02 7 (specimen) AM EST 11:02 AM EST Daphne Shahid MD POINT OF CARE TEST ORDERABLE S Performing Organization Address City/[facility]/[place] [address] POCT Glucose (07/06/2017 10:18 AM EST) P athologist Signature POC Glucose 193 65 - 199 [place] mg/dL [facility] Comment: Supplemental ranges: <140 mg/dL before meals <180 mg/dL all other times of the day Specimen Anatomical Collection Method Collection Time Receive d Time (Source) Location / / Volume Laterality Blood specimen 07/06/2017 10:18 7 (specimen) AM EST 10:18 AM EST Daphne Shahid MD POINT OF CARE TEST ORDERABLE S Performing Organization Address City/State/[place] [address] POCT Glucose (07/06/2017 9:25 AM EST) athologist Signature POC Glucose 182 65 - 199 [facility] Comment: Supplemental ranges: <140 mg/dL before meals <180 mg/dL all other times of the day Specimen Anatomical Collection Method Collection Time Receive d Time (Source) Location / / Volume Laterality Blood specimen 07/06/2017 9:25 AM 017 9:25 (specimen) EST AM EST Daphne Shahid MD POINT OF CARE TEST ORDERABLE S Performing Organization Address City/State/[place] [address] (ABNORMAL) Cardiac Enzymes (LEB/CGP) (07/06/2017 8:10 AM EST) athologist [employer] Troponin-T 2.26 (H) 0.00 - [place] RYAN 0.00 ng/mL [facility] Comment: The 99th percentile [...] additional sample may be indicated. Reference: Third [place] Definition of Myocardial Infarction. Journal of the [...] Address City/[facility]/ZIP Code Phon e Number [address] Magnesium (07/06/2017 8:10 AM EST) P athologist Signature Magnesium 0.84 0.69 - 1.07 [facility] mmol/L [facility] Specimen Anatomical Collection Method Collection Time Receive d Time (Source) Location / / Volume Laterality Blood specimen 07/06/2017 8:10 AM 017 8:21 (specimen) EST AM EST Resulting Agency Comment Spec In Lab Daphne Shahid MD CHEMISTRY ORDERABLES Performing Organization Address City/[facility] [place] [address] (ABNORMAL) Basic Metabolic Panel (non-fasting) (07/06/2017 8:10 AM EST) P athologist Signature Glucose Lvl 199 65 - 199 [facility] mg/dL [facility] Comment: [...] or in patients with acute kidney failure. http://[employer]/DHnkdep http://[employer]/DHnkf Specimen Anatomical Collection Method Collection Time Receive d Time (Source) Location / / Volume Laterality Blood specimen 07/06/2017 8:10 AM 017 8:21 (specimen) EST AM EST Resulting Agency Comment Spec In Lab Daphne Shahid MD CHEMISTRY ORDERABLES Performing Organization Address City/[facility]/[place] [address] POCT Glucose (07/06/2017 7:34 AM EST) P athologist Signature POC Glucose 198 65 - 199 [facility] mg/dL [facility] Comment: Supplemental ranges: <140 mg/dL before meals <180 mg/dL all other times of the day Specimen Anatomical Collection Method Collection Time Receive d Time (Source) Location / / Volume Laterality Blood specimen 07/06/2017 7:34 AM 017 7:34 (specimen) EST AM EST Daphne Shahid MD POINT OF CARE TEST ORDERABLE S Performing Organization Address City/[facility]/[place] [address] POCT Glucose (07/06/2017 7:03 AM EST) P athologist Signature POC Glucose 181 65 - 199 [place] mg/dL [facility] Comment: Supplemental ranges: <140 mg/dL before meals <180 mg/dL all other times of the day Specimen Anatomical Collection Method Collection Time Receive d Time (Source) Location / / Volume Laterality Blood specimen 07/06/2017 7:03 AM 017 7:03 (specimen) EST AM EST Daphne Shahid MD POINT OF CARE TEST ORDERABLE S Performing Organization Address City/State/ZIP Code Phon e Number [address] XR Chest PA or [...] Signature POC Glucose 172 65 - 199 [facility] mg/dL [facility] Comment: Supplemental ranges: <140 mg/dL before meals <180 mg/dL all other times of the day Specimen Anatomical Collection Method Collection Time Receive d Time (Source) Location / / Volume Laterality Blood specimen 07/06/2017 6:21 AM 017 6:21 (specimen) EST AM EST Daphne Shahid MD POINT OF CARE TEST ORDERABLE S Performing Organization Address City/State/[place] [address] POCT Glucose (07/06/2017 5:08 AM EST) athologist Signature POC Glucose 154 65 - 199 [facility] mg/dL [facility] Comment: Supplemental ranges: <140 mg/dL before meals <180 mg/dL all other times of the day Specimen Anatomical Collection Method Collection Time Receive d Time (Source) Location / / Volume Laterality Blood specimen 07/06/2017 5:08 AM 017 5:08 (specimen) EST AM EST Daphne Shahid MD POINT OF CARE TEST ORDERABLE S Performing Organization Address City/State/[place] [address] POCT Glucose (07/06/2017 4:05 AM EST) athologist Signature POC Glucose 142 65 - 199 [facility] mg/dL [facility] Comment: Supplemental ranges: <140 mg/dL before meals <180 mg/dL all other times of the day Specimen Anatomical Collection Method Collection Time Receive d Time (Source) Location / / Volume Laterality Blood specimen 07/06/2017 4:05 AM 017 4:05 (specimen) EST AM EST Daphne Shahid MD POINT OF CARE TEST ORDERABLE S Performing Organization Address City/[facility]/ZIP Code Phon e Number [address] POCT Glucose (07/06/2017 3:00 AM EST) athologist [facility] POC Glucose 116 65 - 199 [facility] mg/dL [facility] Comment: Supplemental ranges: <140 mg/dL before meals <180 mg/dL all other times of the day Specimen Anatomical Collection Method Collection Time Receive d Time (Source) Location / / Volume Laterality Blood specimen 07/06/2017 3:00 AM 017 3:00 (specimen) EST AM EST Daphne Shahid MD POINT OF CARE TEST ORDERABLE S Performing Organization Address City/[facility]/ZIP Code Phon e Number [address] Potassium (07/06/2017 2:20 AM EST) athologist [facility] Potassium 3.9 3.5 - 5.0 [facility] mmol/L [facility] Comment: Please note: ??Patients [...] Address City/[facility]/ZIP Code Phon e Number [address] Differential, Automated (07/06/2017 2:20 AM EST) athologist [facility] Neutrophils % 72.9 % [facility] LABORATORY Neutr Abs (ANC) 5.53 1.70 - [facility] 6.10 [facility] x10(3)/[facility] LABORATORY Lymphocytes % 16.4 % [facility] LABORATORY Lymphocytes Abs 1.2 0.9 - 3.2 [facility] x10(3)/[facility] LABORATORY Monocytes % 9.4 % [facility] LABORATORY Monocyte Abs 0.7 0.3 - 0.9 [facility] x10(3)/[facility] LABORATORY Eosinophils % 0.5 % [facility] LABOR[facility]ORY Eosinophils Abs 0.0 0.0 - 0.4 [facility] x10(3)/[facility] LABORATORY Basophils % 0.4 % [facility] LABORATORY Basophils Abs 0.0 0.0 - 0.1 [facility] x10(3)/[facility] LABORATORY Immature Gran [...] 0.00 - 0.04 x10(3)/[facility] MAR Y [facility] LABORATORY Specimen Anatomical Collection Method Collection Time Receive d Time (Source) Location / / Volume Laterality Blood specimen 07/06/2017 2:20 AM 017 2:33 (specimen) EST AM EST Resulting Agency Comment Spec In Lab Daphne Shahid MD HEMATOLOGY ORDERABLES Performing Organization Address City/State/[place] [address] (ABNORMAL) Hemogram (07/06/2017 2:20 AM EST) Analysis Performed At Patho logist Time Signature WBC 7.6 4.0 - 9.5 [facility] x10(3)/[facility] LABORATORY RBC 4.52 (L) 4.58 - [facility] 5.54 [facility] x10(6)/[facility] LABORATORY Hemoglobin 13.4 (L) 13.7 - [place] [facility] 16.5 gm/dL [facility] LABOR[facility]ORY Hematocrit 39.7 (L) 40.5 - [place] RYNA 48.5 % [facility] LABORATORY MCV 87.8 82.9 - [facility] RYAN 93.1 [facility] LABORATORY MCH 29.6 27.5 - [place] [facility] 32.1 pg [facility] LABORATORY MCHC 33.8 32.0 - [place] RYAN 35.7 gm/dL [facility] Platelets 189 145 - 357 [facility] x10(3)/[facility] LABORATORY RDWSD 45.6 (H) 36.0 - [facility] 45.0 [facility] LABORATORY RDWCV 14.3 (H) 11.4 - [facility] RYAN 13.8 % [facility] LABORATORY MPV 9.1 7.6 - 12.9 [facility] LABORATORY nRBC % Auto 0.0 % [facility] LABORATORY nRBC Abs Auto 0.000 0.000 - [facility] RYAN 0.000 [facility] x10(3)/[facility] LABORATORY Specimen Anatomical Collection Method Collection Time Receive d Time (Source) Location / / Volume Laterality Blood specimen 07/06/2017 2:20 AM 017 2:33 (specimen) EST AM EST Resulting Agency Comment Spec In Lab Daphne Shahid MD HEMATOLOGY ORDERABLES Performing Organization Address City/State/[place] [address] (ABNORMAL) APTT (07/06/2017 2:20 [...] Address City/State/ZIP Code Phon e Number [address] POCT Glucose (07/06/2017 2:20 AM EST) athologist Signature POC Glucose 115 65 - 199 [facility] Comment: Supplemental ranges: <140 mg/dL before meals <180 mg/dL all other times of the day Specimen Anatomical Collection Method Collection Time Receive d Time (Source) Location / / Volume Laterality Blood specimen 07/06/2017 2:20 AM 017 2:20 (specimen) EST AM EST Daphne Shahid MD POINT OF CARE TEST ORDERABLE S Performing Organization Address City/State/[place] [address] (ABNORMAL) Cardiac Enzymes (LEB/CGP) (07/06/2017 2:20 AM EST) athologist Signature Troponin-T 2.13 (H) 0.00 - [place] RYAN 0.00 ng/mL [facility] Comment: The 99th percentile [...] additional sample may be indicated. Reference: Third [place] Definition of Myocardial Infarction. Journal of the [...] City/State/[place] [address] (ABNORMAL) Hemoglobin A1c (07/06/2017 [...] Additional resources are available on [facility] website. Macario HAMMOND, Ruthann J, Deysi R, et al. ??Tr anslating the A1C assay into estimated average glucose values. ??Diabetes Care 2008:31(8):9111-2618. Specimen Anatomical Collection Method Collection Time Receive d Time (Source) Location / / Volume Laterality Blood specimen 07/06/2017 2:20 AM 017 2:34 (specimen) EST AM EST Resulting Agency Comment Spec In Lab Daphne Shahid MD CHEMISTRY ORDERABLES Performing Organization Address City/State/[place] [address] (ABNORMAL) Lipid Panel (07/06/2017 2:20 AM EST) [facility] Method Time Signature Chol, Total 150 <=239 [place] mg/dL [facility] LABORATORY Triglycerides 129 <=199 [facility] mg/dL [facility] LABORATORY HDL 32 (L) >=40 [facility] mg/dL [facility] LABORATORY LDL Cholesterol 92 <=190 [place] mg/dL [facility] LABORATORY Chol/HDL Ratio 4.7 ratio [facility] LABORATORY Lipid See Note [place] Interpretation [facility] LABORATORY Comment: Lipid management should be guided by a p atient? s ASCVD risk, goals and preferences. ACC/AHA Guidelines recommend high intens ity statin if clinical ASCVD or LDL greater than or equal to 190 mg/dL. http://tinyurl.com/ADT-VJD-Ckvzwtdzt Adults aged 40-75 with LDL 70-189 mg/dL should have their 10 year ASCVD risk estimated with the ACC/AHA ASCVD risk es timator http://tools.acc.org/LXGNA-Ydzh-Vgyolouk r/ Statin should be discussed if risk [...] Address City/[facility]/ZIP Code Phon e Number [address] POCT Glucose (07/06/2017 1:09 AM EST) athologist Signature POC Glucose 121 65 - 199 [facility] mg/dL [facility] Comment: Supplemental ranges: <140 mg/dL before meals <180 mg/dL all other times of the day Specimen Anatomical Collection Method Collection Time Receive d Time (Source) Location / / Volume Laterality Blood specimen 07/06/2017 1:09 AM 017 1:09 (specimen) EST AM EST Daphne Shahid MD POINT OF CARE TEST ORDERABLE S Performing Organization Address City/[facility]/[place] [address] POCT Glucose (07/06/2017 12:06 AM EST) athologist Signature POC Glucose 147 65 - 199 [facility] RYAN mg/dL [facility] Comment: Supplemental ranges: <140 mg/dL before meals <180 mg/dL all other times of the day Specimen Anatomical Collection Method Collection Time Receive d Time (Source) Location / / Volume Laterality Blood specimen 07/06/2017 12:06 7 (specimen) AM EST 12:06 AM EST Daphne Shahid MD POINT OF CARE TEST ORDERABLE S Performing Organization Address City/State/[place] [address] (ABNORMAL) POCT Glucose (07/05/2017 10:56 PM EST) athologist Signature POC Glucose 200 (H) 65 - 199 [facility] mg/dL [facility] Comment: Supplemental ranges: <140 mg/dL before meals <180 mg/dL all other times of the day Specimen Anatomical Collection Method Collection Time Receive d Time (Source) Location / / Volume Laterality Blood specimen 07/05/2017 10:56 7 (specimen) PM EST 10:56 PM EST Daphne Shahid MD POINT OF CARE TEST ORDERABLE S Performing Organization Address City/State/ZIP Code Phon e [place] [address] (ABNORMAL) POCT Glucose (07/05/2017 10:05 PM EST) athologist Signature POC Glucose 225 (H) 65 - 199 [facility] mg/dL [facility] LAB[facility]ORY Comment: Supplemental ranges: <140 mg/dL before meals <180 mg/dL all other times of the day Specimen Anatomical Collection Method Collection Time Receive d Time (Source) Location / / Volume Laterality Blood specimen 07/05/2017 10:05 7 (specimen) PM EST 10:05 PM EST Daphne Shahid MD POINT OF CARE TEST ORDERABLE S Performing Organization Address City/State/[place] [address] (ABNORMAL) POCT Glucose (07/05/2017 9:02 PM EST) athologist Signature POC Glucose 301 (H) 65 - 199 [facility] mg/dL [facility] LAB[facility] Comment: Supplemental ranges: <140 mg/dL before meals <180 mg/dL all other times of the day Specimen Anatomical Collection Method Collection Time Receive d Time (Source) Location / / Volume Laterality Blood specimen 07/05/2017 9:02 PM 017 9:02 (specimen) EST PM EST Daphne Shahid MD POINT OF CARE TEST ORDERABLE S Performing Organization Address City/State/[place] [address] XR Chest PA or [...] 474 ms MUSE SYSTEM (Bezet) Calculated P [place] 50 degrees MUSE SYSTEM Calculated R [place] -28 degrees MUSE SYSTEM Calculated T [place] 90 degrees MUSE SYSTEM INTERPRETATION Sinus tachycardia [...] (ABNORMAL) Differential, Automated (07/05/2017 8:20 PM EST) [facility] gist Method Time Signature Neutrophils % 88.4 % [facility] LABORATORY Neutr Abs (ANC) 9.08 (H) 1.70 - [facility] 6.10 [facility] x10(3)/[facility] LABORATORY Lymphocytes % 7.0 % [facility] LABORATORY Lymphocytes Abs 0.7 (L) 0.9 - 3.2 [facility] x10(3)/[facility] LABORATORY Monocytes % 3.7 % [facility] LABORATORY Monocyte Abs 0.4 0.3 - 0.9 [facility] x10(3)/[facility] LABORATORY Eosinophils % 0.1 % [facility] LABORATORY Eosinophils Abs 0.0 0.0 - 0.4 [facility] x10(3)/[facility] LABORATORY Basophils % 0.2 % [facility] LABORATORY Basophils Abs 0.0 0.0 - 0.1 [facility] x10(3)/[facility] LABORATORY Immature Gran [...] City/State/[place] [address] (ABNORMAL) Hemogram (07/05/2017 8:20 PM EST) Analysis Performed At Patho logist Time Signature WBC 10.3 (H) 4.0 - 9.5 [facility] x10(3)/[facility] LABORATORY RBC 4.64 4.58 - [place] 5.54 [facility] x10(6)/[facility] LABORATORY Hemoglobin 14.1 13.7 - [place] 16.5 gm/dL [facility] LABORATORY Hematocrit 40.8 40.5 - [facility] 48.5 % [facility] LABORATORY MCV 87.9 82.9 - [facility] 93.1 [facility] LABORATORY MCH 30.4 27.5 - [place] 32.1 pg [facility] LABORATORY MCHC 34.6 32.0 - [facility] 35.7 gm/dL [facility] LAB[facility]ATORY Platelets 204 145 - 357 [facility] x10(3)/[facility] LABORATORY RDWSD 46.1 (H) 36.0 - [facility] 45.0 [facility] LABORATORY RDWCV 14.5 (H) 11.4 - [facility] 13.8 % [facility] LABORATORY MPV 9.7 7.6 - 12.9 [facility] nRBC % Auto 0.0 % [facility] LABORATORY nRBC Abs Auto 0.000 0.000 - [facility] 0.000 [facility] x10(3)/[facility] LABORATORY Specimen Anatomical Collection Method Collection Time Receive d Time (Source) Location / / Volume Laterality Blood specimen 07/05/2017 8:20 PM 017 8:27 (specimen) EST PM EST Resulting Agency Comment Spec In Lab Daphne Shahid MD HEMATOLOGY ORDERABLES Performing Organization Address City/State/ZIP Code Phon e Number [place] [address] APTT (07/05/2017 8:20 [...] Organization Address City/State/[place] [address] (ABNORMAL) Cardiac Enzymes (LEB/CGP) (07/05/2017 8:20 PM EST) athologist [facility] Troponin-T 2.11 (H) 0.00 - [facility] 0.00 ng/mL [facility] LAB[facility]ORY Comment: The 99th percentile [...] additional sample may be indicated. Reference: Third [place] Definition of Myocardial Infarction. Journal of the [...] CHEMISTRY ORDERABLES Performing Organization Address City/[facility]/ZIP [facility] [place] [address] (ABNORMAL) Magnesium (07/05/2017 8:20 PM EST) P athologist Signature Magnesium 0.68 (L) 0.69 - 1.07 [facility] mmol/L [facility] LABORATORY Specimen Anatomical Collection Method Collection Time Receive d Time (Source) Location / / Volume Laterality Blood specimen 07/05/2017 8:20 PM 017 8:27 (specimen) EST PM EST Resulting Agency Comment Spec In Lab Dahpne Shahid MD CHEMISTRY ORDERABLES Performing Organization Address City/[facility]/[place] [address] (ABNORMAL) Basic Metabolic Panel (non-fasting) (07/05/2017 8:20 PM EST) P athologist Signature Glucose Lvl 321 (H) 65 - 199 [facility] mg/dL [facility] LABORATORY Comment: [...] or in patients with acute kidney failure. http://[employer] Systems/DHnkdep http://[employer]/DHMCnkf Specimen Anatomical Collection Method Collection Time Receive d Time (Source) Location / / Volume Laterality Blood specimen 07/05/2017 8:20 PM 017 8:27 (specimen) EST PM EST Resulting Agency Comment Spec In Lab Daphne Shahid MD CHEMISTRY ORDERABLES Performing Organization Address City/State/[place] [address] (ABNORMAL) POCT Glucose (07/05/2017 7:32 PM EST) P athologist Signature POC Glucose 296 (H) 65 - 199 [facility] mg/dL [facility] LAB[facility]ATORY Comment: Supplemental ranges: <140 mg/dL before meals <180 mg/dL all other times of the day Specimen Anatomical Collection Method Collection Time Receive d Time (Source) Location / / Volume Laterality Blood specimen 07/05/2017 7:32 PM 017 7:32 (specimen) EST PM EST Daphne Shahid MD POINT OF CARE TEST ORDERABLE S Performing Organization Address City/State/[place] [address] CARDIAC CATHETERIZATION (07/05/2017 6:47 PM EST) Anatomical Region Laterality Modality Other Specimen (Source) Anatomical Location Collection Method / Collectio n Time Received Time / Laterality Volume Narrative 07/05/2017 7:27 PM EST ?[facility] ? Cardiac Cathete rization/Intervention Report ? Patient Name: Gregory Hoang ? Procedure Date: 07/05/2017 ? A #: [id number] ? Primary Physician: Clarisa, Jet T ? Case #: [id number] ? File Name: [id number] ? Catheterization Order Number: [id number] ? [facility] ? Final Report [place], [place] ? Patient Name: ? Gregory Natalya ?ID#: ?[id number] ? : ?1945 ? Procedure Date: ? [...] presented with: non -STEMI (w/i 7 days). Cotton ?Cardiovascular Society angina c lass was IV. [...] angio graphy and IABP insertion in laborer bituminous paving. ? Jet Mckenna M.D. ? Electronically Signed by: Jet bunch M.D. ? Report Finalized: 07/05/2017 ??19:23 ? Report Last Ammended: 10/26/2017 ??10:29 ? Procedure Note Jet Mckenna MD - 10/26/2017Formatt ing of this note might be different from the original. [facility] Cardiac Catheterization/Intervention Re port Patient Name: Gregory Hoang Procedure Date: 07/05/2017 A #: [id number] Primary Physician: Jet Mckenna Case #: [id number] File Name: [id number] Catheterization Order Number: [id number] [facility] Final Report [place], [place] Patient Name: Gregory Hoang ID#: [id number] : 1945 Procedure Date: July 05, [...] presented with: non-STEMI ( w/i 7 days). Cotton Cardiovascular Society angina class was IV. No [...] angiograph y and IABP insertion in laborer bituminous paving. Jet Mckenna M.D. Electronically Signed by: Jet [...] Mccollum ? (Age): 1945(72y) Med Rec#: ? [id number] ?Sex: ?M ? Site Loc: ? [place] ?Ht / Wt: ??173(cm)/86(kg) Pt. Loc: ?CCU ? BSA: ?2 Study Date: ?? 07/05/2017 ?Pt. Type: Inpatient Tape: ? Referring: Daphne Shahid ([id number]) Referring: MANDA ALCANTAR Reading: Blade Preston ([id number]) Paint Line Operator: Dayami Paula BA, [facility] Diagnosis: [...] E-wave Vmax ?0.8 ?m/sec ? MV deceleration [id number] ?msec ? MV A-wave Vmax ?0.8 ?m/sec [...] ? Mid-Inferior ?Akinetic ? Mid-Inferoseptal ?Hypokinetic ? [place]-Septal ? Akinetic ? [place]-Anterior ? Hypokinetic ? [place]-Lateral ?Hypokinetic ? [place]-Inferior ? Akinetic ? [place]-Tip ?Akinetic ? This report has been electronically sign ed by: _ Blade Preston MD ? 07/06/2017 08 :53:15 Images reviewed and interpretation [facility] Cardiac Ultrasound Laboratory Procedure Note Blade Preston MD - 07/06/2017Formatt ing of this note might be different from the original. Procedure: Transthoracic Echocardiogram Patient: NATALYA MCBRIDE(Age): [birth year]72y) Med Rec#: [id number] Sex: M Site Loc: [place] Ht / Wt: 173(cm)/86(kg) Pt. Loc: CCU BSA: 2 Study Date: 07/05/2017 Pt. Type: Inpatie nt Tape: Referring: Daphne Shahid ([id number]) Referring: MANDA ALCANTAR Reading: Blade Preston ([id number]) Paint Line Operator: Dayami Paula BA, [facility] Diagnosis: [...] MV E-wave Vmax 0.8 m/sec MV deceleration [id number] msec MV A-wave Vmax 0.8 m/sec MV [...] Hypokinetic Mid-Posterolateral Hypokinetic Mid-Inferior Akinetic Mid-Inferoseptal Hypokinetic [place]-Septal Akinetic [place]-Anterior Hypokinetic [place]-Lateral Hypokinetic [place]-Inferior Akinetic [place]-Tip Akinetic This report has been electronically sign ed by: _ Blade Preston MD 07/06/2017 08:53:15 Images reviewed and interpretation ver ied [facility] Cardiac Ultrasound Laboratory Daphne Shahid MD ECHO ORDERABLES Differential, Automated (07/05/2017 4:55 PM EST) athologist Signature Neutrophils % 77.0 % [facility] LABORATORY Neutr Abs (ANC) 5.26 1.70 - [facility] 6.10 [facility] x10(3)/[facility] LABORATORY Lymphocytes % 13.3 % [facility] LABORATORY Lymphocytes Abs 0.9 0.9 - 3.2 [facility] x10(3)/[facility] LABORATORY Monocytes % 8.2 % [facility] LABORATORY Monocyte Abs 0.6 0.3 - 0.9 [facility] x10(3)/[facility] LABORATORY Eosinophils % 0.7 % [facility] LABORATORY Eosinophils Abs 0.0 0.0 - 0.4 [facility] x10(3)/[facility] LABORATORY Basophils % 0.4 % [facility] LABORATORY Basophils Abs 0.0 0.0 - 0.1 [facility] x10(3)/[facility] LABORATORY Immature Gran [...] 0.00 - 0.04 x10(3)/[facility] LABORATORY Specimen Anatomical Collection Method Collection Time Receive d Time (Source) Location / / Volume Laterality Blood specimen 07/05/2017 4:55 PM 017 5:24 (specimen) EST PM EST Resulting Agency Comment Spec In Lab Daphne Shahid MD HEMATOLOGY ORDERABLES Performing Organization Address City/State/[place] [address] (ABNORMAL) Hemogram (07/05/2017 4:55 PM EST) Analysis Performed At Patho logist Time Signature WBC 6.8 4.0 - 9.5 [facility] x10(3)/[facility] LABORATORY RBC 4.67 4.58 - [facility] 5.54 [facility] x10(6)/[facility] LABORATORY Hemoglobin 14.0 13.7 - [place] 16.5 gm/dL [facility] LABORATORY Hematocrit 41.0 40.5 - [place] 48.5 % [facility] LABORATORY MCV 87.8 82.9 - [facility] 93.1 [facility] LABORATORY MCH 30.0 27.5 - [place] 32.1 pg [facility] LABORATORY MCHC 34.1 32.0 - [place] 35.7 gm/dL [facility] LABORATORY Platelets 197 145 - 357 [facility] x10(3)/[facility] LABORATORY RDWSD 46.4 (H) 36.0 - [place] 45.0 [facility] LABORATORY RDWCV 14.5 (H) 11.4 - [place] 13.8 % [facility] LABORATORY MPV 9.7 7.6 - 12.[address] [address] LABORATORY nRBC % Auto 0.0 % [facility] LABORATORY nRBC Abs Auto 0.000 0.000 - [place] 0.000 [facility] x10(3)/[facility] LABORATORY Specimen Anatomical Collection Method Collection Time Receive d Time (Source) Location / / Volume Laterality Blood specimen 07/05/2017 4:55 PM 017 5:24 (specimen) EST PM EST Resulting Agency Comment Spec In Lab Daphne Shahid MD HEMATOLOGY ORDERABLES Performing Organization Address City/State/[place] [address] (ABNORMAL) Cardiac Enzymes (LEB/CGP) (07/05/2017 4:55 PM EST) P athologist Signature Troponin-T 1.69 (H) 0.00 - [place] 0.00 ng/mL [facility] LABORATORY Comment: The 99th percentile [...] additional sample may be indicated. Reference: Third [place] Definition of Myocardial Infarction. Journal of the [...] Address City/[facility]/[place] [address] (ABNORMAL) pro-Brain Natriuretic Peptide (07/05/2017 4:55 PM EST) P athologist Signature ProBNP 1,598 (H) <=125 [facility] pg/mL [facility] LABORATORY Specimen Anatomical Collection Method Collection Time Receive d Time (Source) Location / / Volume Laterality Blood specimen 07/05/2017 4:55 PM 017 5:24 (specimen) EST PM EST Resulting Agency Comment Spec In Lab Daphne Shahid MD CHEMISTRY ORDERABLES Performing Organization Address City/State/[place] [address] Magnesium (07/05/2017 4:55 PM EST) P athologist Signature Magnesium 0.78 0.69 - 1.07 [facility] mmol/L [facility] LABORATORY Specimen Anatomical Collection Method Collection Time Receive d Time (Source) Location / / Volume Laterality Blood specimen 07/05/2017 4:55 PM 017 5:24 (specimen) EST PM EST Resulting Agency Comment Spec In Lab Daphne Shahid MD CHEMISTRY ORDERABLES Performing Organization Address City/State/Z[place] [address] (ABNORMAL) Basic Metabolic Panel (non-fasting) (07/05/2017 4:55 PM EST) P athologist Signature Glucose Lvl 230 (H) 65 - 199 [facility] mg/dL [facility] LABORATORY Comment: [...] or in patients with acute kidney failure. http://[employer]/DHnkdep http://[employer]/DHMCnkf Specimen Anatomical Collection Method Collection Time Receive d Time (Source) Location / / Volume Laterality Blood specimen 07/05/2017 4:55 PM 017 5:24 (specimen) EST PM EST Resulting Agency Comment Spec In Lab Daphne Shahid MD CHEMISTRY ORDERABLES Performing Organization Address City/[facility]/[place] [address] (ABNORMAL) APTT (07/05/2017 4:55 [...] Address City/[facility]/[place] [address] (ABNORMAL) POCT Glucose (07/05/2017 4:53 PM EST) athologist Signature POC Glucose 208 (H) 65 - 199 [facility] mg/dL [facility] LABORATORY Comment: Supplemental ranges: <140 mg/dL before meals <180 mg/dL all other times of the day Specimen Anatomical Collection Method Collection Time Receive d Time (Source) Location / / Volume Laterality Blood specimen 07/05/2017 4:53 PM 017 4:53 (specimen) EST PM EST Daphne Shahid MD POINT OF CARE TEST ORDERABLE S Performing Organization Address City/[facility]/[place] [address] EKG 12 Lead (07/05/2017 4:32 PM EST) Component Value Ref Range Test Analysis Performed Pathologis t Method Time At Signature Ventricular rate 97 BPM MUSE SYSTEM Atrial Rate 97 BPM MUSE SYSTEM P-R Interval 148 ms MUSE SYSTEM QRS Duration 96 ms MUSE SYSTEM Q-T Interval 364 ms MUSE SYSTEM QTC Calculated 462 ms MUSE SYSTEM (Bezet) Calculated P [place] 48 degrees MUSE SYSTEM Calculated R [place] -33 degrees MUSE SYSTEM Calculated T [place] 98 degrees MUSE SYSTEM INTERPRETATION Normal sinus [...] mg from all sources in 24 hours., Routine, Is ketorolac (TORADOL) IV contraindicated? Yes, Can this patient tolerate oral medications or suppositories? No Given 07/08/2017 7:33 AM EST 1,000 mg [...] mg from all sources in 24 hours., Routine, Is ketorolac (TORADOL) IV contraindicated? Yes, Can this patient tolerate oral medications or suppositories? No Given 07/09/2017 5:06 AM EST 1,000 mg [...] 0239, Until Wed at 0321, STEPHANIE GODOY: dagmarinet override AMIOdarone (CORDARONE) bolus from Bolus from [...] dose on Wed07/07/17 at 2100, Until Discontinued, Continental teeth, Routine Given 07/08/2017 10:06 PM EST [...] or norepinephrine is ineffective. Call pager # [phone] if initiated. Rate/Dose Change 07/08/2017 7:01 PM [...] required aPTT - Per Protocol, Routine, Indication: ACS (STEMI vs NSTEMI vs UA) Rate/Dose Verify 07/07/2017 8:00 AM EST 2,400 [...] if phenyleprine and/or vasopressin ineffective.Call pager # [phone] if initiated., Routine Rate/Dose Change 07/09/2017 1:24 [...] 2.0 L/min/M2. Maximum volume 2 L. Call dimension warehouse supervisor for additional fluid orders: pager #[phone]. Rate/Dose Verify 07/08/2017 4:00 AM EST 100 [...] RN) 0532 (Given - Provider: Denice Jacobson, RN)1330 (Not Given - Provider: Myrna Young, VAMSI - Reason: Patient/family refused) 5 mL, Intravenous, EVERY 8 HOURS, First dose on Wed07/11/17 at 1330, Until Discontinued, Routine 2201 (Given - Provider: Ale Rangel, RN) 2130 [...]
Routine documented in this encounter Care Teams Harvesting Supervisor Relationship Specialty Start Date End Date Lovely Vicente MD PCP - General 04/16/[address] [place] [address] [address] [facility] [place] [address] documented as of this encounter
--- OUTSIDE RECORDS SUMMARY | 2022-04-29 08:18 | XMS_ITS | Encounter Summary ---
:1945 [place] [address] Care Team Providers Name Role Phone Lovely Vicente MD Primary Care Provider Reason for Visit Auth/Cert Specialty Diagnoses / Procedures Referred By Contact Refer red To Contact Diagnoses STEMI (ST elevation myocardial infarction) NSTEMI STEMI Procedures CARDIAC CATHETERIZATION NAYE IPI Referral ID Status Reason Start Date Expiration Date Visits Requ ested Visits Authorized [id number] 1 1 Encounter Details Date Type Department Care Team Description 07/07/2017 Anesthesia Event Main Operating Room Yifan Jaime MD [facility] [place] [address] [facility] Ginny Murray MD [facility] [place] [address] [facility] [place] [address] Anesthesia Record Procedure Summary Procedure Name [...] 2342 LDA Cath/EP Sheath 07/05/17; 0606; 8 Cook Islander 07/05/17 0606 by 1118 by (Fr); Right; Femoral Lilliana Park, Yane oCok, RN PIV 07/05/17; 1720; median 07/05/17 1720 by 07/11/17 2355 by vein (underside of arm), Prior, Yanet Maza, Angela Mccurdy, left; 18 gauge; removed DOOR FURRING INSTALLER per policy/procedure; 07/11/17; 2355 Intra-Aortic Balloon 07/05/17; [...] Miller, Carrie L, Type: Cuffed; ETT Size: DIRECTOR OF FIELD SERVICE 8 mm; Santiago Blade: 2; Notes: Asleep, [...] by 07/09/17 1303 by anterior; mediastinum; Monica Ororuke, VAMSI Higginbotham s, Katerin Martinez, 28 fr. [...] Murray MD - 07/08/2017 5:08 PM EST [facility] Department of Anesthesiology Post-procedure Note Patient: Don Fatima Procedure Summary Date Anesthesia Start Anesthesia Stop Room / Location 07/07/17 1335 1836 [facility] OR [facility] MAIN OR Procedure Diagnosis Surgeon Responsible Provider @CABG, USING ARTERIAL GRAFT;SINGLE ARTERIAL GRAFT (WRVU 33.75) (N/A Chest); @CABG, TWO VENOUS GRAFTS & ARTERIAL GRAFT (WRVU 7.93) (N/A Chest); ENDOSCOPIC HARVEST VEIN(S) FOR CABG (WRVU 0.31) (Right Leg) (CAD) Yuan Freitas MD Hartman, Gregg S, MD All Anesthesia Providers: Anesthesiologist: Yifan Perez MD Court Security Officer: Ginny Murray MD Most Recent Vitals: 07/08/17 [...] SETUP performed by Manny Mcknight MD at [facility] MAIN OR ??? PRO COLONOSCOPY, REMV LESN, SNARE 01/16/2014 COLONOSCOPY, POLYPECTOMY, REMOVAL LESION BY SNARE performed by Nohemi Jaimes MD at [facility] ENDOSCOPY ??? PRO THYROIDECTOMY 03/28/2013 THYROIDECTOMY, TOTAL OR COMPLETE performed by Manny Mcknight MD at [facility] MAIN OR Social History Substance [...] Zulma D[facility] [place] [address] (Wo rk) 05/28/2022 Laboratory Appointment Lab 05/28/2022 Office Visit Cardiology Zulma Dolan MD [facility] [place] [address] Liz Poole PA [facility] [place] [address] 06/10/2022 Office Visit Dermatology Laura Scherer MD [facility] [address] [facility] [place], [place] [address] (Wo rk) documented as of [...] mg documented in this encounter Care Teams Review Rn Relationship Specialty Start Date End Date Lovely Vicente MD PCP - General 04/16/[address] [address] [place] [address] documented as of this encounter
--- OUTSIDE RECORDS SUMMARY | 2022-04-29 08:18 | XMS_ITS | Encounter Summary ---
:1945 Author Organization [facility] Address [facility] [place] [address] Care Team Providers Name Role Phone Lovely Vicente MD Primary Care Provider Reason for Visit Auth/Cert Specialty Diagnoses / Procedures Referred By Contact Refer red To Contact Diagnoses STEMI (ST elevation myocardial infarction) NSTEMI STEMI Procedures CARDIAC CATHETERIZATION NAYE IPI Referral ID Status Reason Start Date Expiration Date Visits Requ ested Visits Authorized [id number] 1 1 Encounter Details Date Type Department Care Team Description 07/07/2017 Surgery Main Operating Room Yuan Webber, @ CABG, USING ARTERIAL Barbara Ocampo MD GRAFT;SINGLE ARTERIAL Hospital [facility] GRAFT (WRVU 33.75) [facility] DR [place]idd[place] [address] SURGERY [phone] [place], [place] [address] (Wo rk) Social History Tobacco [...] in this encounter Discharge Summaries Martha Teague, SUPERVISOR LIQUEFACTION - 07/14/2017 9:38 AM EST Inpatient - Discharge Summary Patient Name: Gregory Hoang Patient Age: 72 y.o. Birthdate: 1945 Language: Cymro Race: White Ethnicity: Not nor Admit Date: [...] @ 1:20p Patient to follow-up with Finance And Administration Manager/heart failure team in one week. An appointment will be made for you. You may call [phone] Patient to follow-up with Cardiac Surgery, Dr. Yuan Webber, in ~ 4 weeks with CXR, EKG. Inpatient Provider Contact Information: [facility] Section of Cardiac Surgery [facility] [address] FAX [phone] Discharge Diagnoses (Hospital Problems) Primary Diagnoses: CAD [...] SETUP performed by Manny Mcknight MD at [facility] OR ??? PRO CABG, ARTERIAL, SINGLE N/A 07/07/2017 @CABG, USING ARTERIAL GRAFT;SINGLE ARTERIAL GRAFT (WRVU 33.75) performed by Yuan Webber MD at [facility] OR ??? PRO CABG, ARTERY-VEIN, TWO N/A 07/07/2017 @CABG, TWO VENOUS GRAFTS & ARTERIAL GRAFT (WRVU 7.93) performed by Yuan Webber MD at [facility] OR ??? PRO COLONOSCOPY, REMV LESN, SNARE 01/16/2014 COLONOSCOPY, POLYPECTOMY, REMOVAL LESION BY SNARE performed by Nohemi Jaimes MD at [facility] ENDOSCOPY ??? PRO ENDOSCOPY W/VIDEO-ASST VEIN HARVEST, CABG Right 07/07/2017 ENDOSCOPIC HARVEST VEIN(S) FOR CABG (WRVU 0.31) performed by Yuan Webber MD at [facility] OR ??? PRO THYROIDECTOMY 03/28/2013 THYROIDECTOMY, TOTAL OR COMPLETE performed by Manny Mcknight MD at [facility] OR Prior To Admission Medications Prescriptions Prior to Admission Medication Sig Dispense Refill Last Dose ??? levothyroxine (SYNTHROID) 175 mcg Tablet Take 1 tablet by mouth daily. 90 tablet 3 07/05/2017 [id number] ??? 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 An IABP [...] not take or discontinue any prescription or pzhk-zhk-dongulp medications without asking your doctor or pharmacist [...] day to have your insulin doses adjusted. [facility] office Discharge Instructions: Call your doctor if: You have a fever of greater than 101 degrees, shaking chills, if you develop redness or drainage from your incision sites, or if you have questions. Please call your surgeon's office if you have any discharge or drainage from your chest incision. Your surgeon, Dr. Yuan Webber and/or the Cardiac Surgery Physician Matcher Team may be reached at . Weight: [...] Yuan Webber. You may use a [place] Track or treadmill but avoid any pulling [...] with the surgeon. Do not ride motorcycles, [employer]'s tractors or horses. Avoid the use of [...] @ 1:20p Patient to follow-up with Finance And Administration Manager/heart failure team in one week. Appointment will be made for you. You may call [phone] Patient to follow-up with Cardiac Surgery, Dr. Yuan Webber, in ~ 4 weeks with CXR, EKG. Cardiac Rehabilitation: Gregory Hoang was seen today regarding participation in the outpatient Phase 2 Cardiac Rehabilitation at [facility]. The patient agrees to a referral to this program. The referral will be sent at discharge and the patient should be contacted by the Program within 1- 2 weeks from discharge. ?? Future Appointments and Orders Future Appointments Provider Department Dept Phone 09/07/2017 3:00 PM LAB, THREE L Lab 3L [facility] [phone] 09/07/2017 4:00 PM Luz Prescott MD Endocrinology at [place] [phone] Future Orders Complete By Expires EKG 12 Lead [EKG1 Custom] 08/14/2017 02/13/2018 Process Instructions: Scheduling Instructions: Questions: Which DH location will this be performed?: [place] Is a rhythm strip needed?: No If EKG Reason is Pre-op Evaluation, indicate diagnosis for surgery.: XR Chest PA & Lateral (Generic) [[id number] Custom] 08/14/2017 02/13/2018 Process Instructions: Scheduling Instructions: Questions: Where will study be performed?: [place] [facility] Portable exam?: Reason for exam and clinical history: CABG x 3 Other pertinent information: Stat read required?: Date of injury if applicable: Requested Time: Referral to Cardiac Rehab [AHB843 Custom] As directed Process Instructions: If no progress note charted, please enter Clinical details in comments. Scheduling Instructions: Questions: My question or request is: s/p CABG. Cardiac rehab at [facility] Referral to Home Health - at DISCHARGE [[id number] CPT(R)] As directed Process Instructions: Scheduling Instructions: Comments: DOCUMENTATION FOR VNA SERVICES (INCLUDING THOSE PATIENTS WITH MEDICARE COVERAGE REQUIRING HOME VNA SERVICES AND/OR HOSPICE SERVICES) PATIENT'S LOCATION: Gregory Hoang [address] [place] [address] [place] [id number] (home) Telephone Information: Cuffing Machine Operator's Name: self In discussion with the attending physician, it is certified that this patient is under their care and that they, or a Nurse Practitioner, or Physician Matcher who is working directly with them, had [...] HEALTH AGENCY: [facility] ([facility] [employer]-is in [place]) PHONE: [phone] FAX: [phone] RN orders: Cardiopulmonary assessment, incisional assessment, assess vital signs, assessment of rehab progress, medication management and effectiveness, home safety evaluation. Please draw INR if indicated and send result to:Dr Vicente [phone] PT ORDERS: Continue rehab for endurance, gait stability and strength with mobility and transfers. Home safety evaluation. Home exercise program if appropriate. Start of Care Date:24-48 hours after discharge SPECIAL INSTRUCTIONS: For any follow up questions, needs, or issues please call the Cardiac Surgery Office at [phone] FOR MEDICARE ONLY: (please delete this section [...] [facility] [address] FAX [phone] Date: 07/14/2017 CC: MD Ivania Cr Betsy, PA [address] [place] [phone] documented in this encounter Discharge Instructions Discharge [...] day to have your insulin doses adjusted. [facility] Endocrine clinic office Patient InstructionsStMartha mcdonald APRN [...] not take or discontinue any prescription or yaup-iep-vbauldx medications without asking your doctor or pharmacist [...] day to have your insulin doses adjusted. [facility] Endocrine clinic office ? Discharge Instructions: ?? Call your doctor if: You have a fever of greater than 101 degrees, shaking chills, if you develop redness or drainage from your incision sites, or if you have questions. Please call your surgeon's office if you have any discharge or drainage from your chest incision. Your surgeon, Dr. Yuan Webber and/or the Cardiac Surgery Physician Matcher Team may be reached at . ?? [...] Yuan Webber. You may use a [place] Track or treadmill but avoid any pulling [...] with the surgeon. Do not ride motorcycles, [employer]'s tractors or horses. Avoid the use of [...] 1:20p ?? Patient to follow-up with Finance And Administration Manager/heart failure team in one week. An appointment has been made for you, you can call [phone] ?? Patient to follow-up with Cardiac Surgery, Dr. Yuan Webber, in ~ 4 weeks with CXR, EKG. ? Cardiac Rehabilitation: Gregory Hoang??was seen today regarding participation in the outpatient Phase 2 Cardiac Rehabilitation at [facility]. ?? The patient agrees to a referral to this program.? The referral will be sent at discharge and the patient should be contacted by the Program within 1- 2 weeks from discharge. ? Future Appointments and Orders Future Appointments Provider Department Dept Phone ?? 09/07/2017 3:00 PM LAB, THREE L Lab 3L [facility] [phone] ?? 09/07/2017 4:00 PM Luz Prescott MD Endocrinology at [place] [phone] Future Orders Complete By Expires ?? EKG 12 Lead [EKG1 Custom] 08/14/2017 02/13/2018 ?? Process Instructions: ? Scheduling Instructions: ? Questions: ? Which location will this be performed?: [place] ?? Is a rhythm strip needed?: No ?? If EKG Reason is Pre-op Evaluation, indicate diagnosis for surgery.: ?? XR Chest PA & Lateral (Generic) [[id number] Custom] 08/14/2017 02/13/2018 ?? Process Instructions: ? Scheduling Instructions: ? Questions: ? Where will study be performed?: [facility] ?? Portable exam?: ?? Reason for exam and clinical history: CABG x 3 ?? Other pertinent information: ?? Stat read required?: ?? Date of injury if applicable: ?? Requested Time: ?? Referral to Cardiac Rehab [IAY251 Custom] As directed ? Process Instructions: ?? If no progress note charted, please enter Clinical details in comments. ?? Scheduling Instructions: ? Questions: ? My question or request is: s/p CABG. Cardiac rehab at [facility] ? Arrangements for VNA/home care: As [...] RN - 07/14/2017 2:34 PM EST The patient/parts representative has been provided a list of Home Health Agencies/DME vendors which serve their preferred geographic area. A letter describing our affiliations was reviewed with them and theywere educated about their right to choose where referrals are placed. Patient requests referral to [facility]. PHONE: [phone] FAX: [phone] Expected date of discharge: 07/14 Referral routed to the Cardiac Care Nurse for matching with agency/vendor and to [...] day to have your insulin doses adjusted. [facility] Endocrine clinic office Kathie Carrera APRN [facility] Endocrinology Diabetes Management Pager [phone] minutes of this 35 minute visit was spent with the patient in counseling on diabetes and treatment plan, reviewing all glucose and insulin data as well as relevant laboratory results with the patient, and coordination of care on the inpatient unit including nursing and primary team. Zulma Power RN - 07/14/2017 10:30 AM EST The patient/parts representative has been provided a list of Home Health Agencies/DME vendors which serve their preferred geographic area. A letter describing our affiliations was reviewed with them and theywere educated about their right to choose where referrals are placed. Patient requests referral to : [facility] ([facility] [employer] [facility]-is in [place]) PHONE: [phone] FAX: [phone]. Expected date of discharge: 07/14/17 Referral routed to the Cardiac Care Nurse for matching with agency/vendor and to [...] hours. If BG remains greater than 240, rhszje47 units (no more than three times) &??call [...] Will continue to follow Katerin Azul APRN [facility] Endocrinology Diabetes Management Pager [phone] minutes of this 25 minute visit [...] of infiltration/extravasation Discussed plan of care with BULL RIDER and RN. Elevate exrtemity and apply intermittent Warm compresses. Name of MD contacted Dr. Shaw Brown 07/13/2017 @ 0667 Name of RN contacted Ale Rangel RN Name of Pharmacist if consulted NA Name of Plastics MD ( if consulted) NA (Mandatory photo for infiltrations/ extravasations scoring a stage 2 or greater, but recommended forstage 1)( include measuring tape and identifier in the photo) HAND WORKER CARING FOR THIS PATIENT WILL CONTINUE [...] tape and identifier in the photo) HAND WORKER CARING FOR THIS PATIENT WILL CONTINUE [...] infiltrates addressed by this ghost writer.All of MrMadiha Hoang's responses were entirely appropriate. Images of infiltrates attached here. L Martha Teague, SUPERVISOR LIQUEFACTION - 07/13/2017 8:01 AM EST Cardiac Surgery Progress Note: ID: [id number] 72 year old male POD#6 s/p CABGx3 [...] discharge. ?? I have met with the patient/parts representative to discuss discharge planning needs. I have provided the [facility], Office of Care Management letter from the Aircraft Maintenance Instructor pertaining to rehab referrals. I have also provided a letter describing our affiliations within the [facility] and educated them about their right to choose where referrals are placed. ?? I reviewed the different levels of rehab including SNF, swing, acute and LTAC with the patient/parts representative. ?? The patient/parts representative has been provided a list of facilities within their preferred geographic area. ?? I have requested that the patient/parts representative provide at least three choices for referral. ?? The patient/parts representative have requested referrals to: ?? [facility]. [facility] ?? 2. [facility] ?? 3. More to be entered ?? Expected date of discharge: 07/14 Note routed to Cardiac Care Nurse who will communicate referrals to facilities [...] hours. If BG remains greater than 240, aumdfc52 units (no more than three times) & [...] Will continue to follow Katerin Azul APRN [facility] Endocrinology Diabetes Management Pager [phone] 20 minutes of this 35 minute visit was spent with the patient in counseling on diabetes and treatment plan, reviewing all glucose and insulin data as well as relevant laboratory results with the patient, and coordination of care on the inpatient unit including nursing and primary team. Makayla Stevenson APRN - 07/12/2017 9:52 AM EST Cardiac Surgery Progress Note: ID: [id number] 72 year old male POD#5 s/p CABGx3 [...] 7:18 PM EST Patient arrived from [facility]. VSS. MSI dressing pulled off with [...] hours. If BG remains greater than 240, qtcyyh50 units (no more than three times) & [...] AM EST Cardiac Surgery Progress Note: ID: [id number] 72 year old male POD#4 s/p CABGx3 [...] hours. If BG remains greater than 240, sguxgh59 units (no more than three times) & [...] AM EST Cardiac Surgery Progress Note: ID: [id number] 72 year old male POD#3 s/p CABGx3 [...] Gas) No results found for: PHART, PO2ART, KGV4KEZ Assessment/Plan: 72 year old male POD#3 s/p [...] Mami Thao - 07/09/2017 6:29 PM EST Electrical Equipment Tester Encounter Note Patient Name: Gregory Hoang : [id number] MR#: [id number] Admit Date: 07/05/2017 4:20 PM Hospital Day 4 days Narrative: Patient was sitting in chair, hugging heart pillow, opened his eyes, nodding to come into room Assessment: Patient was sleepy. Intervention and Outcome: Introduced disk recordist services and patient reached his hand out in appreciation. Follow-up: Electrical Equipment Tester remains available for support. Time in [...] AM EST Cardiac Surgery Progress Note: ID: [id number] 72 year old male POD#2 s/p CABGx3 [...] completed shifts: In: 7977.4 [I.V.:7477.4; Other:500] Out: 9075 [Urine:3000; Other:615] I- 4 L O- 2.7 [...] when IABP d/c'ed. Gretchen Carolina, PT Pager [phone] Maddison Cee PA - 07/08/2017 11:27 AM EST Cardiac Surgery Progress Note: ID: [id number] 72 year old male POD#1 s/p CABGx3 [...] in place in R femoral. No hematoma. MUSKRAT TRAPPER- Intact Psych- Anxious Skin- Dry, no peripheral [...] intact. IABP in place in R femoral. MUSKRAT TRAPPER- Intact Psych- Anxious Skin- Dry, no peripheral [...] note for details. DAPHNE SHAHID MD Pager [phone] Jet Mckenna MD - 07/05/2017 6:48 PM EST Preliminary Cardiac Catheterization Procedure Note: Procedure(s) performed: Left heart cath, IABP insertion Access: Right MANAGER CORPORATE MARKETING-->8fr IABP A time-out was conducted prior to [...] effect. Heparin gtt maintained. 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 documented in this encounter H&P Notes Daphne Shahid MD - 07/05/2017 6:08 PM EST CARDIOLOGY HISTORY & PHYSICAL EXAM Date of Admission: 07/05/2017 ( Hospital Day 0 days ) Responsible Attending: Daphne Shahid MD PCP: Lovely Vicente MD PCP#: [phone] Patient Active Problem List Diagnosis Code ??? [...] with heparin drip and transferred to [facility]. While there, continued sob, question of chest pain. Stat TTE showing WMA diffusely and EF around 20%. No significant valvular disease. 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 DAPHNE SHAHID MD Pager [phone] documented in this encounter Miscellaneous Notes Consult Note - Daphne Shahid MD - 07/14/2017 11:46 AM EST Heart Failure Service Inpatient Consult Note Gregory Hoang Date of : 1945 Age: 72 y.o. Today's date: 07/14/17 PCP: Lovely Vicente MD SKATE HOP: None Place of Service: C451-A Reason for [...] SETUP performed by Manny Mcknight MD at [facility] OR ??? PRO CABG, ARTERIAL, SINGLE N/A 07/07/2017 @CABG, USING ARTERIAL GRAFT;SINGLE ARTERIAL GRAFT (WRVU 33.75) performed by Yuan Webber MD at [facility] OR ??? PRO CABG, ARTERY-VEIN, TWO N/A 07/07/2017 @CABG, TWO VENOUS GRAFTS & ARTERIAL GRAFT (WRVU 7.93) performed by Yuan Webber MD at [facility] OR ??? PRO COLONOSCOPY, REMV LESN, SNARE 01/16/2014 COLONOSCOPY, POLYPECTOMY, REMOVAL LESION BY SNARE performed by Nohemi Jaimes MD at [facility] ENDOSCOPY ??? PRO ENDOSCOPY W/VIDEO-ASST VEIN HARVEST, CABG Right 07/07/2017 ENDOSCOPIC HARVEST VEIN(S) FOR CABG (WRVU 0.31) performed by Yuan Webber MD at [facility] OR ??? PRO THYROIDECTOMY 03/28/2013 THYROIDECTOMY, TOTAL OR COMPLETE performed by Manny Mcknight MD at [facility] OR Outpt Meds: Current Outpatient Prescriptions [...] following studies: EKG 07/14/17: NSR 75 bpm, TAX RECORD CLERK anterior infarct, LAD CXR 07/11/17: FINDINGS: Sternotomy wires. The patient has been extubated, left chest tube removed, and Wishram-Suzi catheter removed since the 07/07/2017 study. Atelectasis [...] was discussed with Zehra. Jaden Kelley MD Skoog Operator Pager [phone] CARDIOLOGY ATTENDING NOTE Patient: Gregory Hoang Date [...] heart failure clinic. DAPHNE SHAHID MD Pager [phone] Plan of Care - Alden Chavarria, GAMEWELL OPERATOR - 07/14/2017 11:35 AM EST Problem: [...] Discharge Disposition: home with assist Alden Chavarria, GAMEWELL OPERATOR Pager: [phone] Inpatient Physical Therapy Problem: Acute Rehab Services [...] sit/sit to supine -- Bed Mobility Goal, [place] Level supervision required -- Bed Mobility Goal, [...] - 3 days -- Gait Training Goal, [place] Level supervision required -- Gait Training Goal, [...] days -- Transfer Training Goal, Activity Type irn-nl-kgzfh/oodoo-gv-mlr;sxn-ln-zpkdh/pntff-ab-six;toilet -- Transfer Train Goal, [place] Level supervision required -- Transfer Training Goal, [...] keeping present for 2 days per family. [employer] Operations Manager noted of frustrations, house keeping sent to room. Patient offered showered twice, refused. at bedside, frustrated that shower not complete, informed that patient had refused several times. requesting to see STOCK SHIPPER, paged sent to Martha, will come to bedside (middle of consult). not willing to wait, Martha notified that family had gone home. Encouraged to come for morning rounds a t 8am. Diabetes team at bedside - insulin adjustments made. Call cabello in reach. Continue to monitor. PLAN MOVING FORWARD: Ambulate, dressing changes BID, Please change drsg at 4am per Martha STOCK SHIPPER request. INDIVIDUALIZED FALL PREVENTION INTERVENTIONS: Patient-specific fall [...] levels on the lower side, 60ml of [place] juice given after a FS of 80. [...] Conf 07/13/17 0502 Interdisciplinary Rounds/Family Conf Participants immigration case worker;dietitian/nutrition services;nursing;occupational therapy;patient;pharmacy;physical therapy;physician Plan of Care [...] monitoring required during toileting and ADLs]: RN BULL RIDER Surveillance [continuous indirect monitoring]: Barrett Monitor CPG [...] Anticipated Discharge Disposition: home with assist Pager: [phone] CLARISSA SEGAL, PT 07/12/2017 Physical Therapy Rehabilitation [...] to sit/sit to supine Bed Mobility Goal, [place] Level supervision required Bed Mobility Goal, Additional Goal adheres to psternal precautions for transfer Goal: Gait Training Goal Stand Alone Therapy Goal Outcome: Ongoing (Interventions Implemented as Appropriate) 07/12/17 1225 Gait Training Goal Gait Training Goal, Date Established 07/12/17 Gait Training Goal, Time to Achieve 2 - 3 days Gait Training Goal, [place] Level supervision required Gait Training Goal, Assist [...] 3 days Transfer Training Goal, Activity Type bnc-kz-jgobu/djekv-da-mqo;hul-sy-aqxuz/nalfh-nb-ryw;toilet Transfer Train Goal, [place] Level supervision required Transfer Training Goal, Additional Goal adheres to sternal precautions during transfer Consult Note - Octavia Vaughn RN - 07/12/2017 10:50 AM EST [facility] CARDIAC REHABILITATION Gregory Hoagn was seen today regarding participation in the outpatient Phase 2 Cardiac Rehabilitation at [facility]. The patient agrees to a referral [...] IV site, amio to other piv and PARTS COUNTERMAN at bedside to help assess, IV removed. [...] staff, he stood and marched in place. [place] weak, wanting to sit back down. Remained [...] Health/Prescription Coverage: Primary Insurance: MEDICARE Secondary Insurance: [email or web address] Prescription Coverage: yes Preferred Pharmacy: [facility] [place] Other: none Primary Care Provider: Lovely Vicente MD [phone] Patient/Caregiver Goals of Treatment:live and get my breath back Potential Needs for Transition of Care: Rehab/SNF: [facility] Home Health: DME: TBD Dialysis: na Community Resources: available Transportation: yes Other: none Anticipated Barriers to Discharge/Special Considerations: none Plan: Likely SNF Rehab before home A member of the Care Management team will continue to monitor progress, follow for continuity of care and assist with transition of care planning. ERLIN Weiss Pager: [phone] Consult Note - Katerin Azul RN - [...] d/c gtt and start CF. long term acute care registered nurse diabetes care: Medications - Outpatient treatment regimen recommendations pending based on the hospital course. Monitoring - continue BG tid ac & hs Diet - low fat/low carb diet Exercise - weight-bearing exercise 30 min/day, as tolerated Thank you for allowing us to provide care for your patient W/E coverage, Dr. Jeane Tatum, pager [phone] Katerin Azul APRN Endocrinology Diabetes Management Pager [phone] Plan of Care - Stephanie Godoy RN [...] Webber MD - 07/07/2017 6:27 PM EST [facility] Operative Note Patient Name: Gregory Hoang : [id number] MR#: [id number] Case Date: 07/07/2017 Surgeon: Surgeon(s) and Role: * Yuan Webber MD - Primary * Michael Drake PA - Physician Matcher * Linda Flores PA - Physician Matcher Preoperative diagnosis: 3VD Postoperative diagnosis: CAD, severe [...] Operative Note Patient Name: Gregory Hoang : [id number] MR#: [id number] Case Date: 07/07/2017 Surgeon: Surgeon(s) and Role: * Yuan Webber MD - Primary * Michael Drake PA - Physician Matcher * Linda Flores PA - Physician Matcher Preoperative diagnosis: 3VD Postoperative diagnosis: CAD, severe [...] code status: Full Code Katty Hahn, MS3 [facility] Cardiology S1 (Pager [phone]) Plan of Care - Emelia Ibarra RN [...] MD at [facility] MAIN OR Social History: Social [...] with other involved physicians Yuan Webber MD [phone] Med Student Progress Note - Katty Hahn [...] or BiPAP - 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 Lasix given in ammunition assembly ii laborer, 1.4 L out at this time. [...] Outcome: Ongoing (Interventions Implemented as Appropriate) 07/06/17 3116 Cardiac: ACS (Acute Coronary Syndrome) Problems Assessed [...] Cardiology Zulma Dolan MD [facility] [address] [place] [address] (Wo rk) 05/28/2022 Laboratory Appointment Lab 05/28/2022 Office Visit Cardiology Zulma Dolan MD [facility] [place] [address] Liz Poole PA [facility] [place] [address] 06/10/2022 Office Visit Dermatology Laura Scherer MD [facility] [address] [place], [place] [address] (Wo rk) Scheduled Orders Name [...] procedure are i n the results section. COMPUTER SCIENCE INSTRUCTOR SCAN 07/15/2017 12:00 Res ults for this [...] Routine 07/08/2017 4:00 Results f or this [place] AM EST procedure are i n the [...] Routine 07/06/2017 7:40 Results f or this ([facility] PM EST procedure are i n the [...] Timed 07/06/2017 2:10 Results f or this ([facility] PM EST procedure are i n the [...] section. TYPE AND SCREEN Routine 07/06/2017 12:00 ([facility]SHANDA) PM EST APTT STAT 07/06/2017 11:24 Results [...] Routine 07/06/2017 8:10 Results f or this ([facility] AM EST procedure are i n the [...] Routine 07/06/2017 2:20 Results f or this ([facility] AM EST procedure are i n the [...] Routine 07/05/2017 8:20 Results f or this ([facility]) [...] Timed 07/05/2017 4:55 Results f or this ([facility]) [...] 2017 EXAMINATION: XR CHEST PA AND LATERAL (SchrodingerIC) CLINICAL HISTORY: CABG x 3 TECHNIQUE: PA [...] Teague APRN IMG DX ORDERABLES SCAN DOC: COMPUTER SCIENCE INSTRUCTOR (07/15/2017 12:00 AM EST) Narrative 07/15/2017 12:00 [...] 186 65 - 199 [place] mg/dL [facility] Comment: Supplemental ranges: <140 mg/dL before meals <180 mg/dL all other times of the day Specimen Anatomical Collection Method Collection Time Receive d Time (Source) Location / / Volume Laterality Blood specimen 07/14/2017 11:56 7 (specimen) AM EST 11:56 AM EST Yuan Webber MD POINT OF CARE TEST ORDERABLE S Performing Organization Address City/State/ZIP Code Phon e Number [place] [id number] [facility] [address] POCT Glucose (07/14/2017 7:52 AM EST) athologist Signature POC Glucose 126 65 - 199 [facility] mg/dL [facility] Comment: Supplemental ranges: <140 mg/dL before meals <180 mg/dL all other times of the day Specimen Anatomical Collection Method Collection Time Receive d Time (Source) Location / / Volume Laterality Blood specimen 07/14/2017 7:52 AM 017 7:52 (specimen) EST AM EST Yuan Webber MD POINT OF CARE TEST ORDERABLE S Performing Organization Address City/State/ZIP Code Phon e Number [address] (ABNORMAL) Prothrombin Time (07/14/2017 [...] Address City/State/ZIP Code Phon e Number [address] Potassium (07/14/2017 4:46 AM EST) athologist Signature Potassium 4.3 3.5 - 5.0 [facility] mmol/L [facility] Comment: Please note: [...] Address City/State/ZIP Code Phon e Number [address] POCT Glucose (07/14/2017 4:34 AM EST) athologist Signature POC Glucose 115 65 - 199 [facility] [place] mg/dL [facility] Comment: Supplemental ranges: <140 mg/dL before meals <180 mg/dL all other times of the day Specimen Anatomical Collection Method Collection Time Receive d Time (Source) Location / / Volume Laterality Blood specimen 07/14/2017 4:34 AM 017 4:34 (specimen) EST AM EST Yuan Webber MD POINT OF CARE TEST ORDERABLE S Performing Organization Address City/[facility]/ZIP Code Phon e Number [address] POCT Glucose (07/13/2017 11:33 PM EST) athologist Signature POC Glucose 132 65 - 199 [place] mg/dL [facility] Comment: Supplemental ranges: <140 mg/dL before meals <180 mg/dL all other times of the day Specimen Anatomical Collection Method Collection Time Receive d Time (Source) Location / / Volume Laterality Blood specimen 07/13/2017 11:33 7 (specimen) PM EST 11:33 PM EST Yuan Webber MD POINT OF CARE TEST ORDERABLE S Performing Organization Address City/[facility]/ZIP Code Phon e Number [address] POCT Glucose (07/13/2017 9:25 PM EST) athologist Signature POC Glucose 121 65 - 199 [place] mg/dL [facility] Comment: Supplemental ranges: <140 mg/dL before meals <180 mg/dL all other times of the day Specimen Anatomical Collection Method Collection Time Receive d Time (Source) Location / / Volume Laterality Blood specimen 07/13/2017 9:25 PM 017 9:25 (specimen) EST PM EST Yuan Webber MD POINT OF CARE TEST ORDERABLE S Performing Organization Address City/State/ZIP Code Phon e Number [address] POCT Glucose (07/13/2017 4:55 PM EST) P athologist Signature POC Glucose 79 65 - 199 [facility] [place] mg/dL [facility] Comment: Supplemental ranges: <140 mg/dL before meals <180 mg/dL all other times of the day Specimen Anatomical Collection Method Collection Time Receive d Time (Source) Location / / Volume Laterality Blood specimen 07/13/2017 4:55 PM 017 4:55 (specimen) EST PM EST Yuan Webber MD POINT OF CARE TEST ORDERABLE S Performing Organization Address City/State/ZIP Code Phon e Number [address] POCT Glucose (07/13/2017 11:16 AM EST) P athologist Signature POC Glucose 163 65 - 199 [place] mg/dL [facility] Comment: Supplemental ranges: <140 mg/dL before meals <180 mg/dL all other times of the day Specimen Anatomical Collection Method Collection Time Receive d Time (Source) Location / / Volume Laterality Blood specimen 07/13/2017 11:16 7 (specimen) AM EST 11:16 AM EST Yuan Webber MD POINT OF CARE TEST ORDERABLE S Performing Organization Address City/State/ZIP Code Phon e Number [address] POCT Glucose (07/13/2017 8:07 AM EST) P athologist Signature POC Glucose 96 65 - 199 [place] mg/dL [facility] Comment: Supplemental ranges: <140 mg/dL before meals <180 mg/dL all other times of the day Specimen Anatomical Collection Method Collection Time Receive d Time (Source) Location / / Volume Laterality Blood specimen 07/13/2017 8:07 AM 017 8:07 (specimen) EST AM EST Yuan Webber MD POINT OF CARE TEST ORDERABLE S Performing Organization Address City/[facility]/[place] [address] (ABNORMAL) Prothrombin Time (07/13/2017 [...] Wilson APRN HEMATOLOGY ORDERABLES Performing Organization Address City/[facility]/[place] [address] (ABNORMAL) Basic Metabolic Panel (non-fasting) (07/13/2017 4:26 AM EST) P athologist Signature Glucose Lvl 95 65 - 199 [facility] mg/dL [facility] [...] in patients with acute kidney failure. http://[employer]/DHnkdep http://[employer]/DHMCnkf Specimen Anatomical Collection Method Collection Time Receive d Time (Source) Location / / Volume Laterality Blood specimen 07/13/2017 4:26 AM 017 4:46 (specimen) EST AM EST Resulting Agency Comment Spec In Lab Makayla Wilson APRN CHEMISTRY ORDERABLES Performing Organization Address City/[facility]/ZIP Code Phon e Number [address] POCT Glucose (07/13/2017 3:52 AM EST) P athologist Signature POC Glucose 93 65 - 199 [facility] mg/dL [facility] Comment: Supplemental ranges: [...] City/State/[place] [address] POCT Glucose (07/13/2017 12:21 AM EST) athologist Signature POC Glucose 80 65 - 199 [place] mg/dL [facility] Comment: Supplemental ranges: <140 mg/dL before meals <180 mg/dL all other times of the day Specimen Anatomical Collection Method Collection Time Receive d Time (Source) Location / / Volume Laterality Blood specimen 07/13/2017 12:21 7 (specimen) AM EST 12:21 AM EST Yuan Webber MD POINT OF CARE TEST ORDERABLE S Performing Organization Address City/State/ZIP Code Phon e Number [address] POCT Glucose (07/12/2017 8:22 PM EST) athologist Signature POC Glucose 119 65 - 199 [facility] [place] mg/dL [facility] Comment: Supplemental ranges: <140 mg/dL before meals <180 mg/dL all other times of the day Specimen Anatomical Collection Method Collection Time Receive d Time (Source) Location / / Volume Laterality Blood specimen 07/12/2017 8:22 PM 017 8:22 (specimen) EST PM EST Yuan Webber MD POINT OF CARE TEST ORDERABLE S Performing Organization Address City/State/ZIP Code Phon e Number [address] POCT Glucose (07/12/2017 4:02 PM EST) athologist Signature POC Glucose 114 65 - 199 [facility] [place] mg/dL [facility] Comment: Supplemental ranges: [...] City/State/[place] [address] POCT Glucose (07/12/2017 11:28 AM EST) athologist Signature POC Glucose 164 65 - 199 [facility] Comment: Supplemental ranges: <140 mg/dL before meals <180 mg/dL all other times of the day Specimen Anatomical Collection Method Collection Time Receive d Time (Source) Location / / Volume Laterality Blood specimen 07/12/2017 11:28 7 (specimen) AM EST 11:28 AM EST Yuan Webber MD POINT OF CARE TEST ORDERABLE S Performing Organization Address City/State/ZIP Code Phon e Number [address] POCT Glucose (07/12/2017 7:34 AM EST) athologist Signature POC Glucose 109 65 - 199 [facility]/dL [facility] Comment: Supplemental ranges: [...] City/State/[place] [address] (ABNORMAL) Basic Metabolic Panel (non-fasting) (07/12/2017 4:11 AM EST) athologist Signature Glucose Lvl 92 65 - 199 [facility] mg/dL [facility] [...] in patients with acute kidney failure. http://[employer]/DHnkdep http://[employer] [place]/DHnkf Specimen Anatomical Collection Method Collection Time Receive d Time (Source) Location / / Volume Laterality Blood specimen 07/12/2017 4:11 AM 017 8:57 (specimen) EST AM EST Resulting Agency Comment Spec In Lab Makayla Katie QUINONES CHEMISTRY ORDERABLES Performing Organization Address City/State/[place] [address] (ABNORMAL) Prothrombin Time (07/12/2017 [...] Wilson APRN HEMATOLOGY ORDERABLES Performing Organization Address City/[facility]/[place] [address] Potassium (07/12/2017 4:11 AM EST) athologist Signature Potassium 3.8 3.5 - 5.0 [facility] mmol/L [facility] Comment: Please note: [...] Wilson APRN CHEMISTRY ORDERABLES Performing Organization Address City/[facility]/[place] [address] POCT Glucose (07/12/2017 4:10 AM EST) athologist Signature POC Glucose 90 65 - 199 [facility] mg/dL [facility] Comment: Supplemental ranges: <140 mg/dL before meals <180 mg/dL all other times of the day Specimen Anatomical Collection Method Collection Time Receive d Time (Source) Location / / Volume Laterality Blood specimen 07/12/2017 4:10 AM 017 4:10 (specimen) EST AM EST uYan Webber MD POINT OF CARE TEST ORDERABLE S Performing Organization Address City/[facility]/[place] [address] POCT Glucose (07/11/2017 11:57 PM EST) athologist Signature POC Glucose 98 65 - 199 [facility] mg/dL [facility] Comment: Supplemental ranges: [...] City/State/[place] [address] POCT Glucose (07/11/2017 8:32 PM EST) P athologist Signature POC Glucose 146 65 - 199 [facility] mg/dL [facility]ORY Comment: Supplemental ranges: [...] City/State/[place] [address] XR Chest PA & [...] e xtubated, left chest tube removed, and Wishram-Suzi catheter removed since the study. Atelectasis at [...] e xtubated, left chest tube removed, and Wishram-Suzi catheter removed since the study. Atelectasis at [...] POC Glucose 223 (H) 65 - 199 [facility]/dL [facility] Comment: Supplemental ranges: <140 mg/dL before meals <180 mg/dL all other times of the day Specimen Anatomical Collection Method Collection Time Receive d Time (Source) Location / / Volume Laterality Blood specimen 07/11/2017 4:05 PM 017 4:05 (specimen) EST PM EST Yuan Webber MD POINT OF CARE TEST ORDERABLE S Performing Organization Address City/[facility]/[place] [address] POCT Glucose (07/11/2017 11:55 AM EST) athologist Signature POC Glucose 176 65 - 199 [place] mg/dL [facility] Comment: Supplemental ranges: [...] City/State/[place] [address] POCT Glucose (07/11/2017 7:53 AM EST) athologist Signature POC Glucose 189 65 - 199 [facility] mg/dL [facility] Comment: Supplemental ranges: <140 mg/dL before meals <180 mg/dL all other times of the day Specimen Anatomical Collection Method Collection Time Receive d Time (Source) Location / / Volume Laterality Blood specimen 07/11/2017 7:53 AM 017 7:53 (specimen) EST AM EST Yuan Webber MD POINT OF CARE TEST ORDERABLE S Performing Organization Address City/[facility]/[place]IP [facility] Phon e Number [address] POCT Glucose (07/11/2017 4:22 AM EST) athologist Signature POC Glucose 151 65 - 199 [facility] mg/dL [facility] Comment: Supplemental ranges: <140 mg/dL before meals <180 mg/dL all other times of the day Specimen Anatomical Collection Method Collection Time Receive d Time (Source) Location / / Volume Laterality Blood specimen 07/11/2017 4:22 AM 017 4:22 (specimen) EST AM EST Yuan Webber MD POINT OF CARE TEST ORDERABLE S Performing Organization Address City/[facility] Phon e Number [address] Potassium (07/11/2017 2:20 AM EST) athologist Signature Potassium 4.5 3.5 - 5.0 [facility] mmol/L [facility] Comment: Please note: [...] Address City/State/ZIP Code Phon e Number [address] POCT Glucose (07/11/2017 12:17 AM EST) athologist Signature POC Glucose 162 65 - 199 [place] mg/dL [facility] Comment: Supplemental ranges: <140 mg/dL before meals <180 mg/dL all other times of the day Specimen Anatomical Collection Method Collection Time Receive d Time (Source) Location / / Volume Laterality Blood specimen 07/11/2017 12:17 7 (specimen) AM EST 12:17 AM EST Yuan Webber MD POINT OF CARE TEST ORDERABLE S Performing Organization Address City/[facility]/ZIP Code Phon e Number [address] POCT Glucose (07/10/2017 8:47 PM EST) athologist Signature POC Glucose 191 65 - 199 [place] mg/dL [facility] Comment: Supplemental ranges: <140 mg/dL before meals <180 mg/dL all other times of the day Specimen Anatomical Collection Method Collection Time Receive d Time (Source) Location / / Volume Laterality Blood specimen 07/10/2017 8:47 PM 017 8:47 (specimen) EST PM EST Yuan Webber MD POINT OF CARE TEST ORDERABLE S Performing Organization Address City/[facility]/ZIP Code Phon [place] [address] POCT Glucose (07/10/2017 4:06 PM EST) athologist Signature POC Glucose 131 65 - 199 [place] mg/dL [facility] Comment: Supplemental ranges: [...] City/State/[place] [address] POCT Glucose (07/10/2017 3:08 PM EST) athologist Signature POC Glucose 151 65 - 199 [place] mg/dL [facility] Comment: Supplemental ranges: <140 mg/dL before meals <180 mg/dL all other times of the day Specimen Anatomical Collection Method Collection Time Receive d Time (Source) Location / / Volume Laterality Blood specimen 07/10/2017 3:08 PM 017 3:08 (specimen) EST PM EST Yuan Webber MD POINT OF CARE TEST ORDERABLE S Performing Organization Address City/State/ZIP Code Phon e Number [address] POCT Glucose (07/10/2017 2:25 PM EST) athologist Signature POC Glucose 146 65 - 199 [facility] mg/dL [facility] Comment: Supplemental ranges: <140 mg/dL before meals <180 mg/dL all other times of the day Specimen Anatomical Collection Method Collection Time Receive d Time (Source) Location / / Volume Laterality Blood specimen 07/10/2017 2:25 PM 017 2:25 (specimen) EST PM EST Yuan Webber MD POINT OF CARE TEST ORDERABLE S Performing Organization Address City/State/ZIP Code Phon e Number [address] POCT Glucose (07/10/2017 1:23 PM EST) athologist Signature POC Glucose 166 65 - 199 [place] mg/dL [facility]ORY Comment: Supplemental ranges: [...] City/State/[place] [address] POCT Glucose (07/10/2017 11:52 AM EST) P athologist Signature POC Glucose 157 65 - 199 [place] mg/dL [facility] Comment: Supplemental ranges: <140 mg/dL before meals <180 mg/dL all other times of the day Specimen Anatomical Collection Method Collection Time Receive d Time (Source) Location / / Volume Laterality Blood specimen 07/10/2017 11:52 7 (specimen) AM EST 11:52 AM EST Yuan Webber MD POINT OF CARE TEST ORDERABLE S Performing Organization Address City/State/ZIP Code Phon e Number [address] POCT Glucose (07/10/2017 11:01 AM EST) athologist Signature POC Glucose 158 65 - 199 [facility] mg/dL [facility] Comment: Supplemental ranges: <140 mg/dL before meals <180 mg/dL all other times of the day Specimen Anatomical Collection Method Collection Time Receive d Time (Source) Location / / Volume Laterality Blood specimen 07/10/2017 11:01 7 (specimen) AM EST 11:01 AM EST Yuan Webber MD POINT OF CARE TEST ORDERABLE S Performing Organization Address City/State/ZIP Code Phon e Number [address] POCT Glucose (07/10/2017 9:54 AM EST) athologist Signature POC Glucose 160 65 - 199 [place]HA[place] mg/dL [facility] Comment: Supplemental ranges: [...] City/State/[place] [address] POCT Glucose (07/10/2017 8:58 AM EST) athologist Signature POC Glucose 183 65 - 199 BARBARA ZHAORYAN mg/dL [facility] Comment: Supplemental ranges: [...] City/State/[place] [address] POCT Glucose (07/10/2017 8:01 AM EST) athologist Signature POC Glucose 173 65 - 199 [place] mg/dL [facility] Comment: Supplemental ranges: <140 mg/dL before meals <180 mg/dL all other times of the day Specimen Anatomical Collection Method Collection Time Receive d Time (Source) Location / / Volume Laterality Blood specimen 07/10/2017 8:01 AM 017 8:01 (specimen) EST AM EST Yuan Webber MD POINT OF CARE TEST ORDERABLE S Performing Organization Address City/State/ZIP Code Phon e Number [address] POCT Glucose (07/10/2017 7:05 AM EST) athologist Signature POC Glucose 166 65 - 199 [place] mg/dL [facility] Comment: Supplemental ranges: <140 mg/dL before meals <180 mg/dL all other times of the day Specimen Anatomical Collection Method Collection Time Receive d Time (Source) Location / / Volume Laterality Blood specimen 07/10/2017 7:05 AM 017 7:05 (specimen) EST AM EST Yuan Webber MD POINT OF CARE TEST ORDERABLE S Performing Organization Address City/State/ZIP Code Phon e Number [address] POCT Glucose (07/10/2017 6:00 AM EST) P athologist Signature POC Glucose 162 65 - 199 [facility] mg/dL [facility]ORY Comment: Supplemental ranges: [...] City/State/[place] [address] (ABNORMAL) Differential, Automated (07/10/2017 4:28 AM EST) Patholo gist Method Time Signature Neutrophils % 87.9 % [facility] LABORATORY Neutr Abs (ANC) 10.70 (H) 1.70 - [facility] 6.10 [facility] x10(3)/[facility] L LABORATORY Lymphocytes % 3.9 % [facility] LABOR[facility]ORY Lymphocytes Abs 0.5 (L) 0.9 - 3.2 [facility] x10(3)/[facility] LABORATORY Monocytes % 7.0 % [facility] LAB[facility] Monocyte Abs 0.8 0.3 - 0.9 [facility] x10(3)/[facility] LABORATORY Eosinophils % 0.3 % [facility] LAB[facility]ORY Eosinophils Abs 0.0 0.0 - 0.4 [facility] x10(3)/[facility] LABORATORY Basophils % 0.2 % [facility] LABOR[facility]ORY Basophils Abs 0.0 0.0 - 0.1 [facility] x10(3)/[facility] LABORATORY Immature Gran [...] Gran Abs 0.08 (H) 0.00 - 0.04 x10(3)/[facility] LABORATORY Specimen Anatomical Collection Method Collection Time Receive d Time (Source) Location / / Volume Laterality Blood specimen 07/10/2017 4:28 AM 017 4:36 (specimen) EST AM EST Resulting Agency Comment Spec In Lab Yuan Webber MD HEMATOLOGY ORDERABLES Performing Organization Address City/State/[place] [address] (ABNORMAL) Hemogram (07/10/2017 4:28 AM EST) Analysis Performed At Patho logist Time Signature WBC 12.2 (H) 4.0 - 9.5 [facility] x10(3)/[facility] LABORATORY RBC 3.31 (L) 4.58 - [facility] 5.[facility] x10(6)/[facility] LABORATORY Hemoglobin 9.8 (L) 13.7 - [facility] 16.5 gm/dL [facility] LABORATORY Hematocrit 30.0 (L) 40.5 - [facility] 48.5 % [facility] LABORATORY MCV 90.6 82.9 - [facility] LAB[facility] MCH 29.6 27.5 - [facility] 32.1 pg [facility] LABORATORY MCHC 32.7 32.0 - [facility] 35.7 gm/dL [facility] LABORATORY Platelets 135 (L) 145 - 357 [facility] x10(3)/[facility] LABORATORY RDWSD 50.8 (H) 36.0 - [facility] 45.0 [facility] LABORATORY RDWCV 15.4 (H) 11.4 - [facility] 13.8 % [facility] LABORATORY MPV 10.0 7.6 - 12.9 [facility] LABORATORY nRBC % Auto 0.0 % [facility] LABORATORY nRBC Abs Auto 0.000 0.000 - [facility] 0.000 [facility] x10(3)/[facility] LABORATORY Specimen Anatomical Collection Method Collection Time Receive d Time (Source) Location / / Volume Laterality Blood specimen 07/10/2017 4:28 AM 017 4:36 (specimen) EST AM EST Resulting Agency Comment Spec In Lab Yuan Webber MD HEMATOLOGY ORDERABLES Performing Organization Address City/[facility]/[place] [address] (ABNORMAL) Basic Metabolic Panel (non-fasting) (07/10/2017 4:28 AM EST) P athologist Signature Glucose Lvl 178 65 - 199 [facility] mg/dL [facility] [...] or in patients with acute kidney failure. [email or web address]/DHnkdep http://[email or web address]/DHMCnkf Specimen Anatomical Collection Method Collection Time Receive d Time (Source) Location / / Volume Laterality Blood specimen 07/10/2017 4:28 AM 017 4:36 (specimen) EST AM EST Resulting Agency Comment Spec In Lab Yuan Webber MD CHEMISTRY ORDERABLES Performing Organization Address City/[facility]/[place] [address] POCT Glucose (07/10/2017 4:26 AM EST) P athologist Signature POC Glucose 176 65 - 199 [facility] mg/dL [facility] LABORATORY Comment: Supplemental ranges: [...] City/State/[place] [address] (ABNORMAL) POCT Glucose (07/10/2017 3:06 AM EST) athologist Signature POC Glucose 204 (H) 65 - 199 [facility] mg/dL [facility] LABORATORY Comment: Supplemental ranges: [...] City/State/[place] [address] (ABNORMAL) POCT Glucose (07/10/2017 2:10 AM EST) athologist Signature POC Glucose 203 (H) 65 - 199 [facility] mg/dL [facility] LABORATORY Comment: Supplemental ranges: <140 mg/dL before meals <180 mg/dL all other times of the day Specimen Anatomical Collection Method Collection Time Receive d Time (Source) Location / / Volume Laterality Blood specimen 07/10/2017 2:10 AM 017 2:10 (specimen) EST AM EST Yuan Webber MD POINT OF CARE TEST ORDERABLE S Performing Organization Address City/State/ZIP Code Phon e Number [address] POCT Glucose (07/10/2017 1:09 AM EST) P athologist Signature POC Glucose 196 65 - 199 [facility] mg/dL [facility] LABORATORY Comment: Supplemental ranges: <140 mg/dL before meals <180 mg/dL all other times of the day Specimen Anatomical Collection Method Collection Time Receive d Time (Source) Location / / Volume Laterality Blood specimen 07/10/2017 1:09 AM 017 1:09 (specimen) EST AM EST Yuan Webber MD POINT OF CARE TEST ORDERABLE S Performing Organization Address City/State/ZIP Code Phon e Number [address] POCT Glucose (07/10/2017 12:10 AM EST) athologist Signature POC Glucose 173 65 - 199 [facility] mg/dL [facility] LABORATORY Comment: Supplemental ranges: <140 mg/dL before meals <180 mg/dL all other times of the day Specimen Anatomical Collection Method Collection Time Receive d Time (Source) Location / / Volume Laterality Blood specimen 07/10/2017 12:10 7 (specimen) AM EST 12:10 AM EST Yuan Webber MD POINT OF CARE TEST ORDERABLE S Performing Organization Address City/State/ZIP Code Phon e Number [address] POCT Glucose (07/09/2017 11:01 PM EST) athologist Signature POC Glucose 140 65 - 199 [facility] mg/dL [facility] LABORATORY Comment: Supplemental ranges: [...] City/State/[place] [address] POCT Glucose (07/09/2017 10:05 PM EST) athologist Signature POC Glucose 144 65 - 199 [facility] mg/dL [facility] LABORATORY Comment: Supplemental ranges: <140 mg/dL before meals <180 mg/dL all other times of the day Specimen Anatomical Collection Method Collection Time Receive d Time (Source) Location / / Volume Laterality Blood specimen 07/09/2017 10:05 7 (specimen) PM EST 10:05 PM EST Yuan Webber MD POINT OF CARE TEST ORDERABLE S Performing Organization Address City/State/ZIP Code Phon e Number [address] POCT Glucose (07/09/2017 9:31 PM EST) athologist Signature POC Glucose 121 65 - 199 [facility] mg/dL [facility] LABORATORY Comment: Supplemental ranges: <140 mg/dL before meals <180 mg/dL all other times of the day Specimen Anatomical Collection Method Collection Time Receive d Time (Source) Location / / Volume Laterality Blood specimen 07/09/2017 9:31 PM 017 9:31 (specimen) EST PM EST Yuan Webber MD POINT OF CARE TEST ORDERABLE S Performing Organization Address City/State/ZIP Code Phon e Number [address] POCT Glucose (07/09/2017 9:03 PM EST) athologist Signature POC Glucose 98 65 - 199 [place] mg/dL [facility] LABORATORY Comment: Supplemental ranges: <140 mg/dL before meals <180 mg/dL all other times of the day Specimen Anatomical Collection Method Collection Time Receive d Time (Source) Location / / Volume Laterality Blood specimen 07/09/2017 9:03 PM 017 9:03 (specimen) EST PM EST Yuan Webber MD POINT OF CARE TEST ORDERABLE S Performing Organization Address City/State/ZIP Code Phon e Number [address] POCT Glucose (07/09/2017 8:09 PM EST) athologist Signature POC Glucose 117 65 - 199 [facility] mg/dL [facility] LABORATORY Comment: Supplemental ranges: [...] City/State/[place] [address] POCT Glucose (07/09/2017 5:40 PM EST) athologist Signature POC Glucose 155 65 - 199 [facility] mg/dL [facility] LABORATORY Comment: Supplemental ranges: [...] City/State/[place] [address] POCT Glucose (07/09/2017 4:24 PM EST) athologist Signature POC Glucose 164 65 - 199 [facility] mg/dL [facility] LABORATORY Comment: Supplemental ranges: <140 mg/dL before meals <180 mg/dL all other times of the day Specimen Anatomical Collection Method Collection Time Receive d Time (Source) Location / / Volume Laterality Blood specimen 07/09/2017 4:24 PM 017 4:24 (specimen) EST PM EST Yuan Webber MD POINT OF CARE TEST ORDERABLE S Performing Organization Address City/State/ZIP Code Phon e Number [address] POCT Glucose (07/09/2017 3:19 PM EST) athologist Signature POC Glucose 166 65 - 199 [facility] mg/dL [facility] LABORATORY Comment: Supplemental ranges: [...] City/State/[place] [address] POCT Glucose (07/09/2017 2:26 PM EST) athologist Signature POC Glucose 179 65 - 199 [facility] mg/dL [facility] LABORATORY Comment: Supplemental ranges: [...] City/State/[place] [address] (ABNORMAL) POCT Glucose (07/09/2017 1:29 PM EST) athologist Signature POC Glucose 210 (H) 65 - 199 [facility] mg/dL [facility] LABORATORY Comment: Supplemental ranges: [...] City/State/[place] [address] POCT Glucose (07/09/2017 12:20 PM EST) athologist Signature POC Glucose 172 65 - 199 [facility] mg/dL [facility] LABORATORY Comment: Supplemental ranges: <140 mg/dL before meals <180 mg/dL all other times of the day Specimen Anatomical Collection Method Collection Time Receive d Time (Source) Location / / Volume Laterality Blood specimen 07/09/2017 12:20 7 (specimen) PM EST 12:20 PM EST Yuan Webber MD POINT OF CARE TEST ORDERABLE S Performing Organization Address City/State/ZIP Code Phon e Number [address] POCT Glucose (07/09/2017 11:24 AM EST) athologist Signature POC Glucose 156 65 - 199 [facility] mg/dL [facility] LABORATORY Comment: Supplemental ranges: <140 mg/dL before meals <180 mg/dL all other times of the day Specimen Anatomical Collection Method Collection Time Receive d Time (Source) Location / / Volume Laterality Blood specimen 07/09/2017 11:24 7 (specimen) AM EST 11:24 AM EST Yuan Webber MD POINT OF CARE TEST ORDERABLE S Performing Organization Address City/State/ZIP Code Phon e Number [address] POCT Glucose (07/09/2017 11:11 AM EST) athologist Signature POC Glucose 172 65 - 199 [facility] mg/dL [facility] LABORATORY Comment: Supplemental ranges: <140 mg/dL before meals <180 mg/dL all other times of the day Specimen Anatomical Collection Method Collection Time Receive d Time (Source) Location / / Volume Laterality Blood specimen 07/09/2017 11:11 7 (specimen) AM EST 11:11 AM EST Yuan Webber MD POINT OF CARE TEST ORDERABLE S Performing Organization Address City/State/ZIP Code Phon e Number [address] POCT Glucose (07/09/2017 10:08 AM EST) athologist Signature POC Glucose 176 65 - 199 [facility] mg/dL [facility] LABORATORY Comment: Supplemental ranges: [...] City/State/[place] [address] POCT Glucose (07/09/2017 8:02 AM EST) P athologist Signature POC Glucose 178 65 - 199 [facility] mg/dL [facility] LABORATORY Comment: Supplemental ranges: [...] City/State/[place] [address] (ABNORMAL) BLOOD GAS 2 ARTERIAL (07/09/2017 5:37 AM EST) Analysis Performed At Patho logist Time Signature pH Art 7.36 7.35 - [facility] 7.45 [facility] LABORATORY pCO2 Art 38 35 - 45 [facility] mmHg [facility] LABORATORY pO2 Art 79 (L) 85 - 104 [facility] mmHg [facility] LABORATORY HCO3 Art 20.9 20.0 - [facility] 26.0 [facility] mmol/L [facility] LABORATORY BE Art -4.6 (L) -3.0 - 3.0 [facility] mmol/L [facility] LABORATORY Hgb Blood Gas 10.5 (L) 13.7 - [facility] 16.5 gm/dL [facility] LABORATORY O2HB Art 93.8 (L) 94.0 - [facility] 97.0 % [facility] LABORATORY COHB Art 0.3 % [...] [facility]ICAL [facility] LABORATORY FIO2 Art 40 % [facility] LABORATORY PF Ratio Art 198 [facility] LABORATORY Specimen Anatomical Collection Method Collection Time Receive d Time (Source) Location / / Volume Laterality Blood specimen 07/09/2017 5:37 AM 017 5:37 (specimen) EST AM EST Yuan Webber MD CHEMISTRY ORDERABLES Performing Organization Address City/State/[place] [address] POCT Glucose (07/09/2017 3:27 AM EST) P athologist Signature POC Glucose 192 65 - 199 [facility] mg/dL [facility] LABORATORY Comment: Supplemental ranges: [...] City/State/[place] [address] (ABNORMAL) Basic Metabolic Panel (non-fasting) (07/09/2017 2:30 AM EST) P athologist Signature Glucose Lvl 179 65 - 199 [facility] mg/dL [facility] [...] or in patients with acute kidney failure. [employer]://[email or web address]/DHnkdep http://[email or web address]/DHMCnkf Specimen Anatomical Collection Method Collection Time Receive d Time (Source) Location / / Volume Laterality Blood specimen Venous Draw / 07/09/2017 2:30 AM 2016 2:42 (specimen) Unknown EST AM EST Resulting Agency Comment Spec In Lab Yuan Webber MD CHEMISTRY ORDERABLES Performing Organization Address City/State/[place] [address] (ABNORMAL) Potassium (07/09/2017 2:30 AM EST) P athologist Signature Potassium 5.1 (H) 3.5 - 5.0 [facility] mmol/L [facility] LABORATORY Comment: Please note: [...] Webber MD CHEMISTRY ORDERABLES Performing Organization Address City/[facility]/[place] [address] (ABNORMAL) Hemogram (07/09/2017 2:30 AM EST) Analysis Performed At Patho logist Time Signature WBC 12.5 (H) 4.0 - 9.5 [facility] x10(3)/[facility] LABORATORY RBC 3.38 (L) 4.58 - [facility] 5.54 [facility] x10(6)/[facility] LABORATORY Hemoglobin 10.1 (L) 13.7 - [facility] 16.5 gm/dL [facility] LABORATORY Hematocrit 30.3 (L) 40.5 - [facility] 48.5 % [facility] LABORATORY MCV 89.6 82.9 - [facility] 93.1 [facility] LABORATORY MCH 29.9 27.5 - [facility] 32.1 pg [facility] LABORATORY MCHC 33.3 32.0 - [facility] 35.7 gm/dL [facility] LABORATORY Platelets 127 (L) 145 - 357 [facility] RY[facility] x10(3)/[facility] LABORATORY RDWSD 49.3 (H) 36.0 - [facility] 45.0 [facility] LABORATORY RDWCV 15.2 (H) 11.4 - [facility] 13.8 % [facility] LABORATORY MPV 9.9 7.6 - 12.9 [facility] LABORATORY nRBC % Auto 0.0 % [facility] LABORATORY nRBC Abs Auto 0.000 0.000 - [facility] 0.000 [facility] x10(3)/[facility] LABORATORY Specimen Anatomical Collection Method Collection Time Receive d Time (Source) Location / / Volume Laterality Blood specimen 07/09/2017 2:30 AM 017 2:41 (specimen) EST AM EST Resulting Agency Comment Spec In Lab Yuan Webber MD HEMATOLOGY ORDERABLES Performing Organization Address City/State/ZIP Code Phon e Number [address] POCT Glucose (07/09/2017 2:10 AM EST) athologist Signature POC Glucose 169 65 - 199 [facility] mg/dL [facility] LABORATORY Comment: Supplemental ranges: <140 mg/dL before meals <180 mg/dL all other times of the day Specimen Anatomical Collection Method Collection Time Receive d Time (Source) Location / / Volume Laterality Blood specimen 07/09/2017 2:10 AM 017 2:10 (specimen) EST AM EST Yuan Webber MD POINT OF CARE TEST ORDERABLE S Performing Organization Address City/State/ZIP Code Phon e Number [address] POCT Glucose (07/09/2017 1:01 AM EST) athologist Signature POC Glucose 173 65 - 199 [facility]/dL [facility] LABORATORY Comment: Supplemental ranges: <140 mg/dL before meals <180 mg/dL all other times of the day Specimen Anatomical Collection Method Collection Time Receive d Time (Source) Location / / Volume Laterality Blood specimen 07/09/2017 1:01 AM 017 1:01 (specimen) EST AM EST Yuan Webber MD POINT OF CARE TEST ORDERABLE S Performing Organization Address City/State/ZIP Code Phon e Number [address] Blood culture (07/09/2017 12:40 AM EST) [facility] Minuum Method Time Signature Blood Culture No growth [facility] DAVIS at 5 days. [facility] LABORATORY Specimen Anatomical Collection Method Collection Time Receive d Time (Source) Location / / Volume Laterality Blood specimen STRUCTURE OF RIGHT 07/09/2017 12:40 3:58 (specimen) UPPER LIMB / AM EST AM EST Unknown Resulting Agency Comment Spec In Lab Yuan Webber MD MICROBIOLOGY - BLOOD ORDERAB LES Performing Organization Address City/[facility]/ZIP Code Phon e Number [address] Blood culture (07/09/2017 12:30 AM EST) [facility] Minuum Method Time Signature Blood Culture No growth [facility] DAVIS at 5 days. [facility] LABORATORY Specimen Anatomical Collection Method Collection Time Receive d Time (Source) Location / / Volume Laterality Blood specimen STRUCTURE OF LEFT 07/09/2017 12:30 06/25 3:59 (specimen) UPPER LIMB / AM EST AM EST Unknown Resulting Agency Comment Spec In Lab Yuan Webber MD MICROBIOLOGY - BLOOD ORDERAB LES Performing Organization Address City/[facility]/[place] [address] (ABNORMAL) Urinalysis Microscopic Exam [...] Address City/State/ZIP Code Phon e Number [address] (ABNORMAL) Urinalysis with reflex Culture (07/09/2017 12:05 AM EST) Patholo gist Method Time Signature Glucose UA Negative Negative [facility] mg/dL [facility] LABORATORY Protein UA 30 (A) Negative [facility] mg/dL [facility] LABORATORY Bilirubin UA Negative Negative [facility] mg/dL [facility] LABORATORY Comment: Clinical correlation required [...] [facility] LABORATORY Nitrite UA Negative Negative [facility] LABORATORY Leukocytes UA Negative Negative [facility] LABORATORY Appearance UA Hazy (A) Clear [facility] LABORATORY Spec [place] UA 1.025 1.002 - 1.030 [facility] LABORATORY Color UA Yellow Yellow [facility] LABORATORY Culture Reflexed No [facility] LABORATORY Specimen (Source) Anatomical Collection Method Collection Time Re ceived Time Location / / Volume Laterality Urine specimen 07/09/2017 12:05 7 obtained via AM EST 12:39 AM EST indwelling urinary catheter (specimen) Resulting Agency Comment Spec In Lab Yuan Webber MD URINE ORDERABLES Performing Organization Address City/State/ZIP Code Phon e Number [place] [id number] [facility] [address]ORY Drive POCT Glucose (07/08/2017 11:01 PM EST) P athologist Signature POC Glucose 191 65 - 199 [facility] mg/dL [facility] LABORATORY Comment: Supplemental ranges: [...] City/State/[place] [address] POCT Glucose (07/08/2017 10:04 PM EST) P athologist Signature POC Glucose 198 65 - 199 [facility] mg/dL [facility] LABORATORY Comment: Supplemental ranges: [...] City/State/[place] [address] Prepare Albumin 5% in [...] Address City/State/ZIP Code Phon e Number [address] POCT Glucose (07/08/2017 8:28 PM EST) P athologist Signature POC Glucose 195 65 - 199 [facility] mg/dL [facility] LABORATORY Comment: Supplemental ranges: <140 mg/dL before meals <180 mg/dL all other times of the day Specimen Anatomical Collection Method Collection Time Receive d Time (Source) Location / / Volume Laterality Blood specimen 07/08/2017 8:28 PM 017 8:28 (specimen) EST PM EST Yuan Webber MD POINT OF CARE TEST ORDERABLE S Performing Organization Address City/[facility]/[place] [address] (ABNORMAL) POCT Glucose (07/08/2017 7:13 PM EST) P athologist Signature POC Glucose 220 (H) 65 - 199 [facility] mg/dL [facility] LABORATORY Comment: Supplemental ranges: <140 mg/dL before meals <180 mg/dL all other times of the day Specimen Anatomical Collection Method Collection Time Receive d Time (Source) Location / / Volume Laterality Blood specimen 07/08/2017 7:13 PM 017 7:13 (specimen) EST PM EST Yuan Webber MD POINT OF CARE TEST ORDERABLE S Performing Organization Address City/[facility]/[place] [address] POCT Glucose (07/08/2017 5:04 PM EST) P athologist Signature POC Glucose 147 65 - 199 [facility] mg/dL [facility] LABORATORY Comment: Supplemental ranges: [...] City/State/[place] [address] (ABNORMAL) BLOOD GAS 2 ARTERIAL (07/08/2017 4:13 PM EST) Analysis Performed At Patho logist Time Signature pH Art 7.38 7.35 - [facility] 7.45 [facility] LABORATORY pCO2 Art 36 35 - 45 [facility] LABORATORY pO2 Art 91 85 - 104 [facility] LABORATORY HCO3 Art 20.9 20.0 - [facility] 26.0 [facility] mmol/L [facility] LABORATORY BE Art -4.2 (L) -3.0 - 3.0 [facility] mmol/L [facility] LABORATORY Hgb Blood Gas 11.7 (L) 13.7 - [facility] 16.5 gm/dL [facility] LABORATORY O2HB Art 95.1 94.0 - [facility] 97.0 % [facility] LABORATORY COHB Art 0.6 % [...] [facility]ICAL CENTER LABORATORY FIO2 Art 40 % [facility] LABORATORY PF Ratio Art 228 [facility] LABORATORY Specimen Anatomical Collection Method Collection Time Receive d Time (Source) Location / / Volume Laterality Blood specimen 07/08/2017 4:13 PM 017 4:13 (specimen) EST PM EST Yuan Webber MD CHEMISTRY ORDERABLES Performing Organization Address City/State/[place] [address] POCT Glucose (07/08/2017 4:01 PM EST) athologist Signature POC Glucose 148 65 - 199 [facility] RY[facility] mg/dL [facility] LABORATORY Comment: Supplemental ranges: <140 mg/dL before meals <180 mg/dL all other times of the day Specimen Anatomical Collection Method Collection Time Receive d Time (Source) Location / / Volume Laterality Blood specimen 07/08/2017 4:01 PM 017 4:01 (specimen) EST PM EST Yuan Webber MD POINT OF CARE TEST ORDERABLE S Performing Organization Address City/State/ZIP Code Phon e Number [address] POCT Glucose (07/08/2017 3:21 PM EST) athologist Signature POC Glucose 118 65 - 199 [facility] R[facility]AN mg/dL [facility] LABORATORY Comment: Supplemental ranges: <140 mg/dL before meals <180 mg/dL all other times of the day Specimen Anatomical Collection Method Collection Time Receive d Time (Source) Location / / Volume Laterality Blood specimen 07/08/2017 3:21 PM 017 3:21 (specimen) EST PM EST Yuan Webber MD POINT OF CARE TEST ORDERABLE S Performing Organization Address City/State/ZIP Code Phon e Number [address] POCT Glucose (07/08/2017 2:01 PM EST) athologist Signature POC Glucose 129 65 - 199 [place] mg/dL [facility] LABORATORY Comment: Supplemental ranges: <140 mg/dL before meals <180 mg/dL all other times of the day Specimen Anatomical Collection Method Collection Time Receive d Time (Source) Location / / Volume Laterality Blood specimen 07/08/2017 2:01 PM 017 2:01 (specimen) EST PM EST Yuan Webber MD POINT OF CARE TEST ORDERABLE S Performing Organization Address City/State/ZIP Code Phon e Number [address] POCT Glucose (07/08/2017 11:53 AM EST) athologist Signature POC Glucose 156 65 - 199 [facility] LABORATORY Comment: Supplemental ranges: [...] City/State/[place] [address] POCT Glucose (07/08/2017 11:04 AM EST) athologist Signature POC Glucose 181 65 - 199 [facility]dL [facility] LABORATORY Comment: Supplemental ranges: <140 mg/dL before meals <180 mg/dL all other times of the day Specimen Anatomical Collection Method Collection Time Receive d Time (Source) Location / / Volume Laterality Blood specimen 07/08/2017 11:04 7 (specimen) AM EST 11:04 AM EST Yuan Webber MD POINT OF CARE TEST ORDERABLE S Performing Organization Address City/[facility]/[place] [address] (ABNORMAL) POCT Glucose (07/08/2017 9:24 AM EST) athologist Signature POC Glucose 203 (H) 65 - 199 [facility]dL [facility] LABORATORY Comment: Supplemental ranges: [...] City/State/[place] [address] APTT (07/08/2017 8:40 AM EST) athologist Signature PTT 33 25 - 35 sec [facility] LABORATORY Comment: The recommended therapeutic range for fu ll dose, unfractionated heparin at [facility] is 80 ? 114 seconds. [...] Webber MD HEMATOLOGY ORDERABLES Performing Organization Address City/[facility]/[place] [address] (ABNORMAL) Prothrombin Time (07/08/2017 [...] City/State/[place] [address] (ABNORMAL) POCT Glucose (07/08/2017 7:38 AM EST) athologist Signature POC Glucose 232 (H) 65 - 199 [facility] mg/dL [facility] LABORATORY Comment: Supplemental ranges: [...] City/State/[place] [address] (ABNORMAL) POCT Glucose (07/08/2017 7:07 AM EST) athologist Signature POC Glucose 234 (H) 65 - 199 [place] mg/dL [facility] LABORATORY Comment: Supplemental ranges: [...] City/State/[place] [address] (ABNORMAL) POCT Glucose (07/08/2017 6:04 AM EST) athologist Signature POC Glucose 225 (H) 65 - 199 [place] mg/dL [facility] LABORATORY Comment: Supplemental ranges: [...] City/State/[place] [address] (ABNORMAL) POCT Glucose (07/08/2017 5:31 AM EST) athologist Signature POC Glucose 216 (H) 65 - 199 [place] mg/dL [facility] LABORATORY Comment: Supplemental ranges: [...] City/State/[place] [address] (ABNORMAL) POCT Glucose (07/08/2017 4:52 AM EST) P athologist Signature POC Glucose 257 (H) 65 - 199 [facility] mg/dL [facility] LABORATORY Comment: Supplemental ranges: <140 mg/dL before meals <180 mg/dL all other times of the day Specimen Anatomical Collection Method Collection Time Receive d Time (Source) Location / / Volume Laterality Blood specimen 07/08/2017 4:52 AM 017 4:52 (specimen) EST AM EST Daphne Shahid MD POINT OF CARE TEST ORDERABLE S Performing Organization Address City/[facility]/[place] [address] (ABNORMAL) BLOOD GAS 2 ARTERIAL (07/08/2017 4:04 AM EST) Analysis Performed At Patho logist Time Signature pH Art 7.30 (L) 7.35 - [facility] 7.45 [facility] LABORATORY pCO2 Art 41 35 - 45 [facility] mmHg [facility] LABORATORY pO2 Art 83 (L) 85 - 104 [facility] mmHg [facility] LABORATORY HCO3 Art 19.6 (L) 20.0 - [facility] 26.0 [facility] mmol/L [facility] LABORATORY BE Art -6.8 (L) -3.0 - 3.0 [facility] mmol/L [facility] LABORATORY Hgb Blood Gas 12.2 (L) 13.7 - [facility] 16.5 gm/dL [facility] LABORATORY O2HB Art 93.5 (L) 94.0 - [facility] 97.0 % [facility] LABORATORY COHB Art 0.4 [...] [facility] Comment: Noted by inspector optical instrument. FIO2 Art 40 % [facility] LABORATORY PF Ratio Art 208 [facility] LABORATORY Specimen Anatomical Collection Method Collection Time Receive d Time (Source) Location / / Volume Laterality Blood specimen 07/08/2017 4:04 AM 017 4:04 (specimen) EST AM EST Daphne Shahid MD CHEMISTRY ORDERABLES Performing Organization Address City/[facility]/[place] [address] Scan, Peripheral Blood (07/08/2017 [...] Webber MD HEMATOLOGY ORDERABLES Performing Organization Address City/[facility]/[place] [address] (ABNORMAL) Differential, Automated (07/08/2017 4:00 AM EST) [facility] Method Time Signature Neutrophils % 85.4 % [facility] LABORATORY Neutr Abs (ANC) 16.07 (H) 1.70 - [facility] 6.10 [facility] x10(3)/[facility] L LABORATORY Lymphocytes % 3.5 % [facility] LABORATORY Lymphocytes Abs 0.6 (L) 0.9 - 3.2 [facility] x10(3)/[facility] LABORATORY Monocytes % 10.4 % [facility] LABORATORY Monocyte Abs 2.0 (H) 0.3 - 0.9 [facility] x10(3)/[facility] LABORATORY Eosinophils % 0.0 % [facility] LABORATORY Eosinophils Abs 0.0 0.0 - 0.4 [facility] x10(3)/[facility] LABORATORY Basophils % 0.1 % [facility] LABORATORY Basophils Abs 0.0 0.0 - 0.1 [facility] x10(3)/[facility] LABORATORY Immature Gran [...] Gran Abs 0.12 (H) 0.00 - 0.04 x10(3)/[facility] LABORATORY Specimen Anatomical Collection Method Collection Time Receive d Time (Source) Location / / Volume Laterality Blood specimen 07/08/2017 4:00 AM 017 4:09 (specimen) EST AM EST Resulting Agency Comment Spec In Lab Yuan Webber MD HEMATOLOGY ORDERABLES Performing Organization Address City/State/[place] [address] (ABNORMAL) Hemogram (07/08/2017 4:00 AM EST) Analysis Performed At Patho logist Time Signature WBC 18.8 (H) 4.0 - 9.5 [facility] x10(3)/[facility] LABORATORY RBC 4.00 (L) 4.58 - [place] 5.54 [facility] x10(6)/[facility] LABORATORY Hemoglobin 11.9 (L) 13.7 - [facility] 16.5 gm/dL [facility] LABORATORY Hematocrit 35.9 (L) 40.5 - [facility] 48.5 % [facility] LABORATORY MCV 89.8 82.9 - [facility] 93[facility]1 [facility] LAB[facility]ORY MCH 29.8 27.5 - [facility] 32.1 pg [facility] LABORATORY MCHC 33.1 32.0 - [facility] 35.7 gm/dL [facility] LABORATORY Platelets 232 145 - 357 [facility] x10(3)/[facility] LABORATORY RDWSD 47.6 (H) 36.0 - [place] 45.0 [facility] LABORATORY RDWCV 14.5 (H) 11.4 - [facility] RYAN 13.8 % [facility] LABORATORY MPV 9.5 7.6 - 12.9 [facility] nRBC % Auto 0.0 % [facility] LABORATORY nRBC Abs Auto 0.000 0.000 - [place] 0.000 [facility] x10(3)/[facility] LABORATORY Specimen Anatomical Collection Method Collection Time Receive d Time (Source) Location / / Volume Laterality Blood specimen 07/08/2017 4:00 AM 017 4:09 (specimen) EST AM EST Resulting Agency Comment Spec In Lab Yuan Webber MD HEMATOLOGY ORDERABLES Performing Organization Address City/State/[place] [address] (ABNORMAL) Electrolytes panel (07/08/2017 4:00 AM EST) P athologist Signature Sodium 139 135 - 145 [facility] mmol/L [facility] LABORATORY Potassium 4.7 3.5 - 5.0 [facility] mmol/L [facility] LABORATORY Comment: result rechecked-JLK Please [...] City/State/[place] [address] (ABNORMAL) Cardiac Enzymes (LEB/CGP) (07/08/2017 4:00 AM EST) P athologist Signature Troponin-T 1.88 (H) 0.00 - [facility] 0.00 ng/mL [facility] LABORATORY Comment: The 99th [...] additional sample may be indicated. Reference: Third [place] Definition of Myocardial Infarction. Journal of the [...] Webber MD CHEMISTRY ORDERABLES Performing Organization Address City/[facility]/ZIP Code Phon e Number [address] (ABNORMAL) Glucose, fasting (07/08/2017 4:00 AM EST) athologist Signature Glucose 287 (H) 65 - 99 [facility] Fasting mg/dL [facility] LABORATORY Comment: ?Fasting* Glucose [...] Webber MD CHEMISTRY ORDERABLES Performing Organization Address City/[facility]/ZIP [facility] [place] [address] (ABNORMAL) Creatinine (07/08/2017 4:00 AM EST) Analysis Performed At Patho logist Time Signature Creatinine 1.55 (H) 0.80 - [facility] 1.50 mg/dL [facility] LABORATORY Estimated GFR 44 (L) >=60 [facility] LABORATORY Comment: The reported eGFR should be multiplied b y 1.2 for patients. The MDRD is not an appropriate measure o f renal function for patients with body mass extremes or in patients with acute kidney failure. http://[employer]/DHnkdep http://[employer]/DHMCnkf Specimen Anatomical Collection Method Collection Time Receive d Time (Source) Location / / Volume Laterality Blood specimen 07/08/2017 4:00 AM 017 4:09 (specimen) EST AM EST Resulting Agency Comment Spec In Lab Yuan Webber MD CHEMISTRY ORDERABLES Performing Organization Address City/[facility]/ZIP [facility] Phon e Number [address] BUN (07/08/2017 4:00 AM EST) P athologist Signature BUN 16 10 - 20 [facility] mg/dL [facility] LABORATORY Specimen Anatomical Collection Method Collection Time Receive d Time (Source) Location / / Volume Laterality Blood specimen 07/08/2017 4:00 AM 017 4:09 (specimen) EST AM EST Resulting Agency Comment Spec In Lab Yuan Webber MD CHEMISTRY ORDERABLES Performing Organization Address City/[facility]/ZIP [facility] [place] [address] (ABNORMAL) POCT Glucose (07/08/2017 3:00 AM EST) P athologist Signature POC Glucose 273 (H) 65 - 199 [facility] mg/dL [facility] LABORATORY Comment: Supplemental ranges: [...] City/State/[place] [address] (ABNORMAL) POCT Glucose (07/08/2017 1:57 AM EST) athologist Signature POC Glucose 288 (H) 65 - 199 [facility] mg/dL [facility] LABORATORY Comment: Supplemental ranges: [...] City/State/[place] [address] (ABNORMAL) POCT Glucose (07/08/2017 1:01 AM EST) athologist Signature POC Glucose 315 (H) 65 - 199 [facility] mg/dL [facility] LABORATORY Comment: Supplemental ranges: [...] City/State/[place] [address] (ABNORMAL) BLOOD GAS 2 ARTERIAL (07/08/2017 12:09 AM EST) athologist Signature pH Art 7.26 7.35 - [facility] (Critical) 7.45 [facility] LABORATORY Comment: Noted by inspector optical instrument. pCO2 Art 41 35 - 45 [...] [facility] Comment: Noted by inspector optical instrument. FIO2 Art 40 % [facility] [...] City/State/[place] [address] (ABNORMAL) POCT Glucose (07/07/2017 10:56 PM EST) athologist Signature POC Glucose 292 (H) 65 - 199 [facility] mg/dL [facility] LABORATORY Comment: Supplemental ranges: [...] City/State/[place] [address] (ABNORMAL) BLOOD GAS 2 ARTERIAL (07/07/2017 10:04 PM EST) athologist Signature pH Art 7.22 7.35 - [facility] (Critical) 7.45 [facility] LABORATORY Comment: Noted by inspector optical instrument. pCO2 Art 42 35 - 45 [...] [facility] Comment: Noted by inspector optical instrument. FIO2 Art 40 % [facility] LABORATORY PF Ratio Art 235 [facility] LABORATORY Specimen Anatomical Collection Method Collection Time Receive d Time (Source) Location / / Volume Laterality Blood specimen 07/07/2017 10:04 7 (specimen) PM EST 10:04 PM EST Daphne Shahid MD CHEMISTRY ORDERABLES Performing Organization Address City/State/ZIP Code Phon e Number [address] (ABNORMAL) Hemoglobin (07/07/2017 10:00 PM EST) P athologist Signature Hemoglobin 12.8 (L) 13.7 - [facility] 16.5 gm/dL [facility] LABORATORY Specimen Anatomical Collection Method Collection Time Receive d Time (Source) Location / / Volume Laterality Blood specimen 07/07/2017 10:00 7 (specimen) PM EST 10:13 PM EST Resulting Agency Comment Spec In Lab Yuan Webber MD HEMATOLOGY ORDERABLES Performing Organization Address City/State/ZIP Code Phon e Number [address] (ABNORMAL) Potassium (07/07/2017 10:00 PM EST) P athologist Signature Potassium 3.4 (L) 3.5 - 5.0 [facility] mmol/L [facility] LABORATORY Comment: Please note: [...] Webber MD CHEMISTRY ORDERABLES Performing Organization Address City/[facility]/[place] [address] (ABNORMAL) POCT Glucose (07/07/2017 8:49 PM EST) athologist Signature POC Glucose 241 (H) 65 - 199 [facility] mg/dL [facility] LABORATORY Comment: Supplemental ranges: <140 mg/dL before meals <180 mg/dL all other times of the day Specimen Anatomical Collection Method Collection Time Receive d Time (Source) Location / / Volume Laterality Blood specimen 07/07/2017 8:49 PM 017 8:49 (specimen) EST PM EST Daphne Shahid MD POINT OF CARE TEST ORDERABLE S Performing Organization Address City/[facility]/[place] [address] Prepare Albumin 5% in [...] BROWN BLOOD BANK ORDERABLES Performing Organization Address City/[facility]/[place] [address] EKG 12 Lead (07/07/2017 [...] athologist Signature pH Art 7.21 7.35 - [facility] (Critical) 7.45 [facility] LABORATORY Comment: Noted by inspector optical instrument. pCO2 Art 50 (H) 35 - [...] [facility] LABORATORY Comment: Noted by inspector optical instrument. Please note: Patients with WBC >100,000 [...] [facility] Comment: Noted by inspector optical instrument. FIO2 Art 100 % [facility] LABORATORY PF Ratio Art 238 [facility] LABORATORY Specimen Anatomical Collection Method Collection Time Receive d Time (Source) Location / / Volume Laterality Blood specimen 07/07/2017 6:57 PM 017 6:57 (specimen) EST PM EST Daphne Shahid MD CHEMISTRY ORDERABLES Performing Organization Address City/State/[place] [address] (ABNORMAL) BLOOD GAS 2 ARTERIAL (07/07/2017 5:31 PM EST) P athologist Signature pH Art 7.29 7.35 - [facility] (Critical) 7.45 [facility] LABORATORY Comment: Noted by inspector optical instrument. pCO2 Art 48 (H) 35 - [...] City/State/[place] [address] Fibrinogen (07/07/2017 5:30 PM EST) P athologist Signature Fibrinogen 224 180 - 510 [facility] mg/dL [facility] LABORATORY Comment: Called by: JEET, [...] Perez MD HEMATOLOGY ORDERABLES Performing Organization Address [facility] Phon e Number [address] APTT (07/07/2017 5:30 PM EST) P athologist Signature PTT 30 25 - 35 sec [facility] LABORATORY Comment: The recommended therapeutic range for fu ll dose, unfractionated heparin at [facility] is 80 ? 114 seconds. [...] Perez MD HEMATOLOGY ORDERABLES Performing Organization Address [facility] [place] [address] (ABNORMAL) Prothrombin Time (07/07/2017 [...] Perez MD HEMATOLOGY ORDERABLES Performing Organization Address [facility]/[place] [address] (ABNORMAL) Hemogram (07/07/2017 5:30 PM EST) athologist Signature WBC 19.6 (H) 4.0 - 9.5 [facility] x10(3)/[facility] LABORATORY RBC 3.08 (L) 4.58 - [facility] 5.54 [facility] x10(6)/[facility] LABORATORY Hemoglobin 9.2 (L) 13.7 - [facility] 16.5 gm/dL [facility] Hematocrit 28.0 (L) 40.5 - [facility] 48.5 % [facility] LABORATORY Comment: This result has [...] City/State/[place] [address] Prepare Platelets, Apheresis (07/07/2017 5:00 PM EST) P athologist Signature Dispensed? Yes [facility] LABORATORY Specimen Anatomical Collection Method Collection Time Receive d Time (Source) Location / / Volume Laterality Blood specimen 07/07/2017 5:00 PM 017 4:58 (specimen) EST PM EST Daphne Shahid MD BLOOD BANK ORDERABLES Performing Organization Address City/State/[place] [address] Platelet count (07/07/2017 4:55 PM EST) athologist Signature Platelets 177 145 - 357 [facility] x10(3)/[facility] LABORATORY Plat Immature 1.5 0.0 - 7.4 [facility] % % [facility] LABORATORY Comment: Limitation of the Immature Platelet Frac tion (IPF)-May be less reliable when the platelet count is less than [id number]/u L due to statistical imprecision. The IPF [...] in a decreased state of production. References: [employer] The Clinical Value of the Immature Platelet Fraction (IPF) in Cell Recovery Document Number [id number] 12/2010 [employer] The Role of the Imm ature Platelet Fraction (IPF) in the Differential Diagnosis of Thrombocytopen ia, Document [id number] V012/04/13 P012/06 Specimen Anatomical Collection Method Collection Time Receive d Time (Source) Location / / Volume Laterality Blood specimen 07/07/2017 4:55 PM 017 5:13 (specimen) EST PM EST Resulting Agency Comment Spec In Lab Daphne Shahid MD HEMATOLOGY ORDERABLES Performing Organization Address City/[facility]/[place] [address] (ABNORMAL) Hemoglobin and Hematocrit, blood (07/07/2017 4:55 PM EST) P athologist Signature Hemoglobin 9.1 (L) 13.7 - 16.5 [facility] gm/dL [facility] LABORATORY Comment: This result has [...] Shahid MD HEMATOLOGY ORDERABLES Performing Organization Address City/[facility]/[place] [address] (ABNORMAL) BLOOD GAS 2 ARTERIAL (07/07/2017 4:38 PM EST) Analysis Performed At Patho logist Time Signature pH Art 7.37 7.35 - [facility] 7.45 [facility] LABORATORY pCO2 Art 44 35 - 45 [facility] mmHg [facility] LABORATORY pO2 Art 322 (H) 85 - 104 [facility] mmHg [facility] LABORATORY HCO3 Art 24.9 20.0 - [facility] 26.0 [facility] mmol/L [facility] LABORATORY BE Art -0.4 -3.0 - 3.0 [facility] mmol/L [facility] LABORATORY Hgb Blood Gas 10.1 (L) 13.7 - [facility] 16.5 gm/dL [facility] LABORATORY O2HB Art 98.7 (H) 94.0 - [facility] 97.0 % [facility] LABORATORY COHB Art 0.1 % [...] [facility] Comment: Noted by inspector optical instrument. Note: ??Total bilirubin higher than 20 [...] City/State/[place] [address] (ABNORMAL) BLOOD GAS 2 VENOUS (07/07/2017 4:06 PM EST) Analysis Performed At Patho logist Time Signature pH Cody 7.31 (L) 7.32 - [facility] 7.42 [facility] LABORATORY pCO2 Cody 47 41 - 51 [facility] LABORATORY pO2 Cody 53 (H) 25 - 40 [facility] LABORATORY HCO3 Cody 22.7 mmol/L [facility] LABORATORY BE Cody -3.7 mmol/L [facility] LABORATORY Hgb Blood Gas 10.2 (L) 13.7 - [facility] 16.5 gm/dL [facility] LABORATORY O2HB [place] 81.0 % [...] [facility] LABORATORY Comment: Noted by inspector optical instrument. Note: ??Total bilirubin higher than 20 m g/dL may lead to falsely low ionized calcium. CL Whole Blood 100 98 - 107 mmol/L [facility] Gluc Whole Bld 231 (H) 65 - 199 mg/dL [facility] Comment: Diabetes: >=200 mg/dL plus symp toms Lactate WB 1.1 0.5 - 2.2 mmol/L [facility]OR[facility] BGas Source Venous [facility]OR[facility] Specimen Anatomical Collection Method Collection Time Receive d Time (Source) Location / / Volume Laterality Blood specimen 07/07/2017 4:06 PM 017 4:06 (specimen) EST PM EST Daphne Shahid MD CHEMISTRY ORDERABLES Performing Organization Address City/State/[place] [address] (ABNORMAL) BLOOD GAS 2 ARTERIAL (07/07/2017 4:05 PM EST) Analysis Performed At Patho logist Time Signature pH Art 7.36 7.35 - [facility] 7.45 [facility] LABORATORY pCO2 Art 40 35 - 45 [facility] LABORATORY pO2 Art 282 (H) 85 - 104 [facility] LABORATORY HCO3 Art 22.1 20.0 - [facility] 26.0 [facility] mmol/L [facility] LABORAT[facility] BE Art -3.4 (L) -3.0 - 3.0 [facility] mmol/L [facility] LABORATORY Hgb Blood Gas 10.2 (L) 13.7 - [facility] 16.5 gm/dL [facility] LABORATORY O2HB Art 98.4 (H) 94.0 - [facility] 97.0 % [facility] LABORATORY COHB Art 0.3 % [...] [facility] Comment: Noted by inspector optical instrument. Note: ??Total bilirubin higher than 20 [...] City/State/[place] [address] (ABNORMAL) BLOOD GAS 2 ARTERIAL (07/07/2017 2:29 PM EST) Analysis Performed At Patho logist Time Signature pH Art 7.43 7.35 - [facility] 7.45 [facility] LABORATORY pCO2 Art 36 35 - 45 [facility] LABORATORY pO2 Art 221 (H) 85 - 104 [facility] LABORATORY HCO3 Art 23.2 20.0 - [facility] 26.0 [facility] mmol/L [facility] LABORATORY BE Art -1.2 -3.0 - 3.0 [facility] mmol/L [facility] LABORATORY Hgb Blood Gas 13.9 13.7 - [facility] 16.5 gm/dL [facility] O2HB Art 97.8 (H) 94.0 - [facility] 97.0 % [facility] LABORATORY COHB Art 1.1 % [...] City/State/[place] [address] Prepare Coag Factors (Non-Hemophilia) (07/07/2017 1:25 PM EST) P athologist Signature Dispensed? Yes [facility] LABOR[facility]ORY Specimen Anatomical Collection Method Collection Time Receive d Time (Source) Location / / Volume Laterality Blood specimen 07/07/2017 1:25 PM 017 1:21 (specimen) EST PM EST Daphne Shahid MD BLOOD BANK ORDERABLES Performing Organization Address City/State/ZIP Code Phon e Number [address] Prepare RBC (07/07/2017 1:10 PM EST) athologist Signature Dispensed? Yes [facility] LABORATORY Specimen Anatomical Collection Method Collection Time Receive d Time (Source) Location / / Volume Laterality Blood specimen 07/07/2017 1:10 PM 017 1:05 (specimen) EST PM EST Dapnhe Shahid MD BLOOD BANK ORDERABLES Performing Organization Address City/State/[place] [address] POCT Glucose (07/07/2017 11:56 AM EST) athologist Signature POC Glucose 188 65 - 199 [facility] R[facility]AN mg/dL [facility] LABORATORY Comment: Supplemental ranges: [...] City/State/[place] [address] POCT Glucose (07/07/2017 11:05 AM EST) athologist Signature POC Glucose 168 65 - 199 [facility] LABORATORY Comment: Supplemental ranges: [...] City/State/[place] [address] POCT Glucose (07/07/2017 10:02 AM EST) P athologist Signature POC Glucose 191 65 - 199 [facility] mg/dL [facility] LABORATORY Comment: Supplemental ranges: [...] City/State/[place] [address] POCT Glucose (07/07/2017 7:53 AM EST) athologist Signature POC Glucose 178 65 - 199 [facility] mg/dL [facility] LABORATORY Comment: Supplemental ranges: <140 mg/dL before meals <180 mg/dL all other times of the day Specimen Anatomical Collection Method Collection Time Receive d Time (Source) Location / / Volume Laterality Blood specimen 07/07/2017 7:53 AM 017 7:53 (specimen) EST AM EST Daphne Shahid MD POINT OF CARE TEST ORDERABLE S Performing Organization Address City/State/ZIP Code Phon e Number [address] POCT Glucose (07/07/2017 7:03 AM EST) athologist Signature POC Glucose 188 65 - 199 [facility] mg/dL [facility] LABORATORY Comment: Supplemental ranges: [...] City/State/[place] [address] (ABNORMAL) POCT Glucose (07/07/2017 6:17 AM EST) athologist Signature POC Glucose 207 (H) 65 - 199 [facility] mg/dL [facility] LABORATORY Comment: Supplemental ranges: <140 mg/dL before meals <180 mg/dL all other times of the day Specimen Anatomical Collection Method Collection Time Receive d Time (Source) Location / / Volume Laterality Blood specimen 07/07/2017 6:17 AM 017 6:17 (specimen) EST AM EST Daphne Shahid MD POINT OF CARE TEST ORDERABLE S Performing Organization Address City/[facility]/ZIP Code Phon e Number [address] Differential, Automated (07/07/2017 5:15 AM EST) athologist Signature Neutrophils % 69.7 % [facility] LAB[facility]ORY Neutr Abs (ANC) 5.32 1.70 - [facility] 6.10 [facility] x10(3)/[facility] LABORATORY Lymphocytes % 16.3 % [facility] LABOR[facility]ORY Lymphocytes Abs 1.2 0.9 - 3.2 [facility] x10(3)/[facility] LABORATORY Monocytes % 10.5 % [facility] LABORATORY Monocyte Abs 0.8 0.3 - 0.9 [facility] x10(3)/[facility] LABORATORY Eosinophils % 2.5 % [facility] LABORATORY Eosinophils Abs 0.2 0.0 - 0.4 [facility] x10(3)/[facility] LABORATORY Basophils % 0.7 % [facility] LABORATORY Basophils Abs 0.0 0.0 - 0.1 [facility] x10(3)/[facility] LABORATORY Immature Gran % 0.30 % [place] [...] Melisa Gran Abs 0.02 0.00 - 0.04 x10(3)/[facility] LABORATORY Specimen Anatomical Collection Method Collection Time Receive d Time (Source) Location / / Volume Laterality Blood specimen 07/07/2017 5:15 AM 017 5:34 (specimen) EST AM EST Resulting Agency Comment Spec In Lab Daphne Shahid MD HEMATOLOGY ORDERABLES Performing Organization Address City/State/[place] [address] (ABNORMAL) Hemogram (07/07/2017 5:15 AM EST) Analysis Performed At Patho logist Time Signature WBC 7.6 4.0 - 9.5 [facility] x10(3)/[facility] LABORATORY RBC 4.82 4.58 - [facility] 5.54 [facility] x10(6)/[facility] Hemoglobin 14.4 13.7 - [facility] 16.5 gm/dL [facility] LABORATORY Hematocrit 42.1 40.5 - [facility] 48.5 % [facility] LABORATORY MCV 87.3 82.9 - [facility] 93.1 [facility] LAB[facility]ORY MCH 29.9 27.5 - [facility] 32.1 pg [facility] LABORATORY MCHC 34.2 32.0 - [facility] 35.7 gm/dL [facility] LABORATORY Platelets 188 145 - 357 [facility] x10(3)/[facility] LABORATORY RDWSD 45.1 (H) 36.0 - [facility] 45[facility]0 [facility] LAB[facility] RDWCV 14.3 (H) 11.4 - [facility] 13.8 % [facility] LABORATORY MPV 9.4 7.6 - 12.9 [facility] LABORATORY nRBC % Auto 0.0 % [facility] LABORATORY nRBC Abs Auto 0.000 0.000 - [facility] 0.000 [facility] x10(3)/[facility] LABORATORY Specimen Anatomical Collection Method Collection Time Receive d Time (Source) Location / / Volume Laterality Blood specimen 07/07/2017 5:15 AM 017 5:34 (specimen) EST AM EST Resulting Agency Comment Spec In Lab Daphne Shahid MD HEMATOLOGY ORDERABLES Performing Organization Address City/[facility]/[place] [address] (ABNORMAL) APTT (07/07/2017 5:15 AM EST) P athologist Signature PTT 69 (H) 25 - 35 sec [facility] LAB[facility]ORY Comment: The recommended therapeutic range for fu ll dose, unfractionated heparin at [facility] is 80 ? 114 seconds. [...] Shahid MD HEMATOLOGY ORDERABLES Performing Organization Address City/[facility]/[place] [address] Magnesium (07/07/2017 5:15 AM EST) athologist Signature Magnesium 0.94 0.69 - 1.07 [facility] mmol/L [facility] LABORATORY Specimen Anatomical Collection Method Collection Time Receive d Time (Source) Location / / Volume Laterality Blood specimen 07/07/2017 5:15 AM 017 5:34 (specimen) EST AM EST Resulting Agency Comment Spec In Lab Daphne Shahid MD CHEMISTRY ORDERABLES Performing Organization Address City/[facility]/[place] [address] (ABNORMAL) Basic Metabolic Panel (non-fasting) (07/07/2017 5:15 AM EST) athologist Signature Glucose Lvl 203 (H) 65 - 199 [facility] mg/dL [facility] [...] or in patients with acute kidney failure. [email or web address]/DHnkdep [email or web address]/DHMCnkf Specimen Anatomical Collection Method Collection Time Receive d Time (Source) Location / / Volume Laterality Blood specimen 07/07/2017 5:15 AM 017 5:34 (specimen) EST AM EST Resulting Agency Comment Spec In Lab Daphne Shahid MD CHEMISTRY ORDERABLES Performing Organization Address City/State/[place] [address] (ABNORMAL) Cardiac Enzymes (LEB/CGP) (07/07/2017 5:15 AM EST) athologist Signature Troponin-T 2.07 (H) 0.00 - [facility] 0.00 ng/mL [facility] LABORATORY Comment: The 99th [...] additional sample may be indicated. Reference: Third [place] Definition of Myocardial Infarction. Journal of the [...] City/State/[place] [address] POCT Glucose (07/07/2017 5:01 AM EST) P athologist Signature POC Glucose 182 65 - 199 [facility] mg/dL [facility] LABORATORY Comment: Supplemental ranges: <140 mg/dL before meals <180 mg/dL all other times of the day Specimen Anatomical Collection Method Collection Time Receive d Time (Source) Location / / Volume Laterality Blood specimen 07/07/2017 5:01 AM 017 5:01 (specimen) EST AM EST Daphne Shahid MD POINT OF CARE TEST ORDERABLE S Performing Organization Address City/State/ZIP Code Phon e Number [address] POCT Glucose (07/07/2017 4:08 AM EST) P athologist Signature POC Glucose 199 65 - 199 [facility] mg/dL [facility] LABORATORY Comment: Supplemental ranges: <140 mg/dL before meals <180 mg/dL all other times of the day Specimen Anatomical Collection Method Collection Time Receive d Time (Source) Location / / Volume Laterality Blood specimen 07/07/2017 4:08 AM 017 4:08 (specimen) EST AM EST Daphne Shahid MD POINT OF CARE TEST ORDERABLE S Performing Organization Address City/[facility]/ZIP Code Phon e Number [address] POCT Glucose (07/07/2017 3:03 AM EST) athologist Signature POC Glucose 188 65 - 199 [facility] mg/dL [facility] LABORATORY Comment: Supplemental ranges: [...] City/State/[place] [address] (ABNORMAL) POCT Glucose (07/07/2017 2:08 AM EST) athologist Signature POC Glucose 200 (H) 65 - 199 [facility] mg/dL [facility] LABORATORY Comment: Supplemental ranges: [...] City/State/[place] [address] (ABNORMAL) POCT Glucose (07/07/2017 1:31 AM EST) P athologist Signature POC Glucose 209 (H) 65 - 199 [facility] mg/dL [facility] LABORATORY Comment: Supplemental ranges: [...] City/State/[place] [address] XR Chest PA or [...] Signature POC Glucose 161 65 - 199 [facility] mg/dL [facility] LABORATORY Comment: Supplemental ranges: <140 mg/dL before meals <180 mg/dL all other times of the day Specimen Anatomical Collection Method Collection Time Receive d Time (Source) Location / / Volume Laterality Blood specimen 07/07/2017 12:07 7 (specimen) AM EST 12:07 AM EST Daphne Shahid MD POINT OF CARE TEST ORDERABLE S Performing Organization Address City/[facility]/ZIP Code Phon e Number [address] (ABNORMAL) APTT (07/07/2017 12:00 AM EST) athologist [facility] PTT 103 (H) 25 - 35 sec [facility] LABORATORY Comment: The recommended therapeutic range for fu ll dose, unfractionated heparin at [facility] is 80 ? 114 seconds. [...] City/State/[place] [address] POCT Glucose (07/06/2017 9:55 PM EST) athologist Signature POC Glucose 109 65 - 199 [facility] mg/dL [facility] LABORATORY Comment: Supplemental ranges: <140 mg/dL before meals <180 mg/dL all other times of the day Specimen Anatomical Collection Method Collection Time Receive d Time (Source) Location / / Volume Laterality Blood specimen 07/06/2017 9:55 PM 017 9:55 (specimen) EST PM EST Daphne Shahid MD POINT OF CARE TEST ORDERABLE S Performing Organization Address City/State/ZIP Code Phon e Number [address] POCT Glucose (07/06/2017 9:04 PM EST) athologist Signature POC Glucose 120 65 - 199 [facility] mg/dL [facility] LABORATORY Comment: Supplemental ranges: [...] City/State/[place] [address] POCT Glucose (07/06/2017 7:45 PM EST) athologist Signature POC Glucose 158 65 - 199 [facility] mg/dL [facility] LABORATORY Comment: Supplemental ranges: <140 mg/dL before meals <180 mg/dL all other times of the day Specimen Anatomical Collection Method Collection Time Receive d Time (Source) Location / / Volume Laterality Blood specimen 07/06/2017 7:45 PM 017 7:45 (specimen) EST PM EST Daphne Shahid MD POINT OF CARE TEST ORDERABLE S Performing Organization Address City/[facility]/[place] [address] Potassium (07/06/2017 7:40 PM EST) athologist Signature Potassium 3.9 3.5 - 5.0 [facility] mmol/L [facility] LABORATORY Comment: Please note: [...] City/State/[place] [address] (ABNORMAL) Cardiac Enzymes (LEB/CGP) (07/06/2017 7:40 PM EST) athologist Signature Troponin-T 2.27 (H) 0.00 - [facility] 0.00 ng/mL [facility] LABORATORY Comment: The 99th [...] additional sample may be indicated. Reference: Third [place] Definition of Myocardial Infarction. Journal of the [...] City/State/[place] [address] (ABNORMAL) POCT Glucose (07/06/2017 7:13 PM EST) P athologist Signature POC Glucose 200 (H) 65 - 199 [facility] mg/dL [facility] LABORATORY Comment: Supplemental ranges: <140 mg/dL before meals <180 mg/dL all other times of the day Specimen Anatomical Collection Method Collection Time Receive d Time (Source) Location / / Volume Laterality Blood specimen 07/06/2017 7:13 PM 017 7:13 (specimen) EST PM EST Daphne Shahid MD POINT OF CARE TEST ORDERABLE S Performing Organization Address City/State/ZIP Code Phon e Number [address] (ABNORMAL) APTT (07/06/2017 6:15 PM EST) athologist [facility] PTT 94 (H) 25 - 35 sec [facility] LABORATORY Comment: The recommended therapeutic range for fu ll dose, unfractionated heparin at [facility] is 80 ? 114 seconds. [...] City/State/[place] [address] (ABNORMAL) POCT Glucose (07/06/2017 6:03 PM EST) athologist Signature POC Glucose 236 (H) 65 - 199 [facility] mg/dL [facility] LABORATORY Comment: Supplemental ranges: [...] City/State/[place] [address] (ABNORMAL) POCT Glucose (07/06/2017 5:01 PM EST) P athologist Signature POC Glucose 235 (H) 65 - 199 [facility] mg/dL [facility] LABORATORY Comment: Supplemental ranges: <140 mg/dL before meals <180 mg/dL all other times of the day Specimen Anatomical Collection Method Collection Time Receive d Time (Source) Location / / Volume Laterality Blood specimen 07/06/2017 5:01 PM 017 5:01 (specimen) EST PM EST Daphne Shahid MD POINT OF CARE TEST ORDERABLE S Performing Organization Address City/[facility]/[place] [address] (ABNORMAL) POCT Glucose (07/06/2017 4:06 PM EST) athologist Signature POC Glucose 202 (H) 65 - 199 [facility] mg/dL [facility] LABORATORY Comment: Supplemental ranges: [...] City/State/[place] [address] POCT Glucose (07/06/2017 2:59 PM EST) P athologist Signature POC Glucose 178 65 - 199 [facility] mg/dL [facility] LABORATORY Comment: Supplemental ranges: <140 mg/dL before meals <180 mg/dL all other times of the day Specimen Anatomical Collection Method Collection Time Receive d Time (Source) Location / / Volume Laterality Blood specimen 07/06/2017 2:59 PM 017 2:59 (specimen) EST PM EST Daphne Shahid MD POINT OF CARE TEST ORDERABLE S Performing Organization Address City/[facility]/[place] [address] (ABNORMAL) Cardiac Enzymes (LEB/CGP) (07/06/2017 2:10 PM EST) P athologist Signature Troponin-T 2.34 (H) 0.00 - [facility] 0.00 ng/mL [facility] LABORATORY Comment: The 99th [...] additional sample may be indicated. Reference: Third [place] Definition of Myocardial Infarction. Journal of the [...] Shahid MD CHEMISTRY ORDERABLES Performing Organization Address City/[facility]/[place] [address] POCT Glucose (07/06/2017 2:08 PM EST) P athologist Signature POC Glucose 192 65 - 199 [facility] mg/dL [facility] LABORATORY Comment: Supplemental ranges: <140 mg/dL before meals <180 mg/dL all other times of the day Specimen Anatomical Collection Method Collection Time Receive d Time (Source) Location / / Volume Laterality Blood specimen 07/06/2017 2:08 PM 017 2:08 (specimen) EST PM EST Daphne Shahid MD POINT OF CARE TEST ORDERABLE S Performing Organization Address City/State/ZIP Code Phon e Number [address] POCT Glucose (07/06/2017 1:04 PM EST) athologist Signature POC Glucose 162 65 - 199 [facility]/dL [facility] LABORATORY Comment: Supplemental ranges: <140 mg/dL before meals <180 mg/dL all other times of the day Specimen Anatomical Collection Method Collection Time Receive d Time (Source) Location / / Volume Laterality Blood specimen 07/06/2017 1:04 PM 017 1:04 (specimen) EST PM EST Daphne Shahid MD POINT OF CARE TEST ORDERABLE S Performing Organization Address City/State/ZIP Code Phon e Number [address] POCT Glucose (07/06/2017 12:05 PM EST) athologist Signature POC Glucose 196 65 - 199 [facility] mg/dL [facility] LABORATORY Comment: Supplemental ranges: <140 mg/dL before meals <180 mg/dL all other times of the day Specimen Anatomical Collection Method Collection Time Receive d Time (Source) Location / / Volume Laterality Blood specimen 07/06/2017 12:05 7 (specimen) PM EST 12:05 PM EST Daphne Shahid MD POINT OF CARE TEST ORDERABLE S Performing Organization Address City/State/ZIP Code Phon e Number [address] EKG 12 Lead (07/06/2017 [...] found Confirmed by MD Luci, Taurus Braun ([id number]) on 07/06/2017 5:07:33 PM Specimen Anatomical Collection Method Collection Time Receive d Time (Source) Location / / Volume Laterality 07/06/2017 12:00 07/06/2017 5:07 PM EST PM EST Daphne Shahid MD ECG ORDERABLES Performing Organization Address City/[facility]/ZIP Code Phon e Number MUSE SYSTEM ABORH Recheck Status (07/06/2017 12:00 PM EST) [facility] Method Time Signature ABORH Type Completed [facility] LABORATORY Specimen Anatomical Collection Method Collection Time Receive d Time (Source) Location / / Volume Laterality Blood specimen 07/06/2017 12:00 7 (specimen) PM EST 12:24 PM EST Resulting Agency Comment Spec In Lab Daphne Shahid MD BLOOD BANK ORDERABLES Performing Organization Address City/[facility]/[place] [address] Antibody screen (07/06/2017 12:00 PM EST) [facility] Method Time Signature Ab Screen Negative [facility] LABORATORY Expires at 07/09/2017 [facility] [id number] on: [facility] LABORATORY Specimen Anatomical Collection Method Collection Time Receive d Time (Source) Location / / Volume Laterality Blood specimen 07/06/2017 12:00 7 (specimen) PM EST 12:24 PM EST Resulting Agency Comment Spec In Lab Daphne Shaihd MD BLOOD BANK ORDERABLES Performing Organization Address City/[facility]/ZIP Code Phon e Number [address] ABO/Rh Typing (07/06/2017 12:00 PM EST) P athologist Signature ABORh Type O Pos [facility] LABORATORY Specimen Anatomical Collection Method Collection Time Receive d Time (Source) Location / / Volume Laterality Blood specimen 07/06/2017 12:00 7 (specimen) PM EST 12:24 PM EST Resulting Agency Comment Spec In Lab Daphen Shahid MD BLOOD BANK ORDERABLES Performing Organization Address City/State/[place] [address] Prothrombin Time (07/06/2017 11:24 [...] Shahid MD HEMATOLOGY ORDERABLES Performing Organization Address City/[facility]/ZIP Code Phon e Number [place] [id number] (ABNORMAL) APTT (07/06/2017 11:24 AM EST) P athologist Signature PTT 52 (H) 25 - 35 sec [facility] LABORATORY Comment: The recommended therapeutic range for fu ll dose, unfractionated heparin at [facility] is 80 ? 114 seconds. [...] Address City/State/ZIP Code Phon e Number [address] POCT Glucose (07/06/2017 11:02 AM EST) athologist Signature POC Glucose 187 65 - 199 [place] RYAN mg/dL [facility] LABORATORY Comment: Supplemental ranges: [...] City/State/[place] [address] POCT Glucose (07/06/2017 10:18 AM EST) athologist Signature POC Glucose 193 65 - 199 [place] RY[place] mg/dL [facility] LABORATORY Comment: Supplemental ranges: [...] City/State/[place] [address] POCT Glucose (07/06/2017 9:25 AM EST) athologist Signature POC Glucose 182 65 - 199 [place] mg/dL [facility] LABORATORY Comment: Supplemental ranges: <140 mg/dL before meals <180 mg/dL all other times of the day Specimen Anatomical Collection Method Collection Time Receive d Time (Source) Location / / Volume Laterality Blood specimen 07/06/2017 9:25 AM 017 9:25 (specimen) EST AM EST Daphne Shahid MD POINT OF CARE TEST ORDERABLE S Performing Organization Address City/[facility]/[place] [address] (ABNORMAL) Cardiac Enzymes (LEB/CGP) (07/06/2017 8:10 AM EST) athologist Signature Troponin-T 2.26 (H) 0.00 - [place] RYAN 0.00 ng/mL [facility] LABORATORY Comment: The 99th [...] additional sample may be indicated. Reference: Third [place] Definition of Myocardial Infarction. Journal of the [...] Address City/State/ZIP Code Phon e Number [place] Magnesium (07/06/2017 8:10 AM EST) athologist Signature Magnesium 0.84 0.69 - 1.07 [facility] mmol/L [facility] LABORATORY Specimen Anatomical Collection Method Collection Time Receive d Time (Source) Location / / Volume Laterality Blood specimen 07/06/2017 8:10 AM 017 8:21 (specimen) EST AM EST Resulting Agency Comment Spec In Lab Daphne Shahid MD CHEMISTRY ORDERABLES Performing Organization Address City/State/ZIP Code Phon e Number [address] (ABNORMAL) Basic Metabolic Panel (non-fasting) (07/06/2017 8:10 AM EST) athologist Signature Glucose Lvl 199 65 - 199 [facility] mg/dL [facility] [...] or in patients with acute kidney failure. http://[employer].mobile melting g[employer]/DHnkdep http://[employer].mobile melting gmbh/DHMCnkf Specimen Anatomical Collection Method Collection Time Receive d Time (Source) Location / / Volume Laterality Blood specimen 07/06/2017 8:10 AM 017 8:21 (specimen) EST AM EST Resulting Agency Comment Spec In Lab Daphne Shahid MD CHEMISTRY ORDERABLES Performing Organization Address City/[facility]/ZIP Code Phon e Number [address] POCT Glucose (07/06/2017 7:34 AM EST) athologist Signature POC Glucose 198 65 - 199 [facility] mg/dL [facility] LABORATORY Comment: Supplemental ranges: <140 mg/dL before meals <180 mg/dL all other times of the day Specimen Anatomical Collection Method Collection Time Receive d Time (Source) Location / / Volume Laterality Blood specimen 07/06/2017 7:34 AM 017 7:34 (specimen) EST AM EST Daphne Shahid MD POINT OF CARE TEST ORDERABLE S Performing Organization Address City/[facility]/ZIP Code Phon e Number [address] POCT Glucose (07/06/2017 7:03 AM EST) athologist Signature POC Glucose 181 65 - 199 [facility] LABORATORY Comment: Supplemental ranges: <140 mg/dL before meals <180 mg/dL all other times of the day Specimen Anatomical Collection Method Collection Time Receive d Time (Source) Location / / Volume Laterality Blood specimen 07/06/2017 7:03 AM 017 7:03 (specimen) EST AM EST Daphne Shahid MD POINT OF CARE TEST ORDERABLE S Performing Organization Address City/[facility]/ZIP Code Phon e Number [address] XR Chest PA or [...] POC Glucose 172 65 - 199 [facility] mg/dL [facility] LABORATORY Comment: Supplemental ranges: <140 mg/dL before meals <180 mg/dL all other times of the day Specimen Anatomical Collection Method Collection Time Receive d Time (Source) Location / / Volume Laterality Blood specimen 07/06/2017 6:21 AM 017 6:21 (specimen) EST AM EST Daphne Shahid MD POINT OF CARE TEST ORDERABLE S Performing Organization Address City/State/ZIP Code Phon e Number [address] POCT Glucose (07/06/2017 5:08 AM EST) athologist Signature POC Glucose 154 65 - 199 [place] RYAN mg/dL [facility] LABORATORY Comment: Supplemental ranges: <140 mg/dL before meals <180 mg/dL all other times of the day Specimen Anatomical Collection Method Collection Time Receive d Time (Source) Location / / Volume Laterality Blood specimen 07/06/2017 5:08 AM 017 5:08 (specimen) EST AM EST Daphne Shahid MD POINT OF CARE TEST ORDERABLE S Performing Organization Address City/State/ZIP Code Phon e Number [address] POCT Glucose (07/06/2017 4:05 AM EST) athologist Signature POC Glucose 142 65 - 199 [place] mg/dL [facility] LABORATORY Comment: Supplemental ranges: [...] City/State/[place] [address] POCT Glucose (07/06/2017 3:00 AM EST) athologist Signature POC Glucose 116 65 - 199 [facility] RYAN mg/dL [facility] LABORATORY Comment: Supplemental ranges: <140 mg/dL before meals <180 mg/dL all other times of the day Specimen Anatomical Collection Method Collection Time Receive d Time (Source) Location / / Volume Laterality Blood specimen 07/06/2017 3:00 AM 017 3:00 (specimen) EST AM EST Daphne Shahid MD POINT OF CARE TEST ORDERABLE S Performing Organization Address City/[facility]/[place] [address] [facility] [address] Potassium (07/06/2017 2:20 AM EST) athologist Signature Potassium 3.9 3.5 - 5.0 [facility] mmol/L [facility] LABORATORY Comment: Please note: [...] Shahid MD CHEMISTRY ORDERABLES Performing Organization Address City/[facility]/ZIP Code Phon e Number [address] Differential, Automated (07/06/2017 2:20 AM EST) athologist Signature Neutrophils % 72.9 % [facility] LABORATORY Neutr Abs (ANC) 5.53 1.70 - [facility] 6.10 [facility] x10(3)/[facility] LABORATORY Lymphocytes % 16.4 % [facility] LABORATORY Lymphocytes Abs 1.2 0.9 - 3.2 [facility] x10(3)/[facility] LABORATORY Monocytes % 9.4 % [facility] LABORATORY Monocyte Abs 0.7 0.3 - 0.9 [facility] x10(3)/[facility] LABORATORY Eosinophils % 0.5 % [facility] LABORATORY Eosinophils Abs 0.0 0.0 - 0.4 [facility] x10(3)/[facility] LABORATORY Basophils % 0.4 % [facility] LABORATORY Basophils Abs 0.0 0.0 - 0.1 [facility] x10(3)/[facility] LABORATORY Immature Gran % 0.40 % [place] [...] Gran Abs 0.03 0.00 - 0.04 x10(3)/[facility] MAR Y [facility] LABORATORY Specimen Anatomical Collection Method Collection Time Receive d Time (Source) Location / / Volume Laterality Blood specimen 07/06/2017 2:20 AM 017 2:33 (specimen) EST AM EST Resulting Agency Comment Spec In Lab Daphne Shahid MD HEMATOLOGY ORDERABLES Performing Organization Address City/State/[place] [address] (ABNORMAL) Hemogram (07/06/2017 2:20 AM EST) Analysis Performed At Patho logist Time Signature WBC 7.6 4.0 - 9.5 [facility] x10(3)/[facility] LABORATORY RBC 4.52 (L) 4.58 - [facility] 5.54 [facility] x10(6)/[facility] LABORATORY Hemoglobin 13.4 (L) 13.7 - [facility] 16.5 gm/dL [facility] LABORATORY Hematocrit 39.7 (L) 40.5 - [facility] 48.5 % [facility] LABORATORY MCV 87.8 82.9 - [facility] LAB[facility]ORY MCH 29.6 27.5 - [facility] RYAN 32.1 pg [facility] LABORATORY MCHC 33.8 32.0 - [facility] 35.7 gm/dL [facility] LABORATORY Platelets 189 145 - 357 [facility] x10(3)/[facility] LABORATORY RDWSD 45.6 (H) 36.0 - [facility] 45.0 [facility] LABORATORY RDWCV 14.3 (H) 11.4 - [facility] RYAN 13.8 % [facility] LABORATORY MPV 9.1 7.6 - 12.9 [facility] LABORATORY nRBC % Auto 0.0 % [facility] LABORATORY nRBC Abs Auto 0.000 0.000 - [place] DAVIS 0.000 [facility] x10(3)/[facility] LABORATORY Specimen Anatomical Collection Method Collection Time Receive d Time (Source) Location / / Volume Laterality Blood specimen 07/06/2017 2:20 AM 017 2:33 (specimen) EST AM EST Resulting Agency Comment Spec In Lab Daphne Shahid MD HEMATOLOGY ORDERABLES Performing Organization Address City/State/ZIP Code Phon e Number [address] (ABNORMAL) APTT (07/06/2017 2:20 AM EST) P athologist Signature PTT 52 (H) 25 - 35 sec [facility] LABORATORY Comment: The recommended therapeutic range for fu ll dose, unfractionated heparin at [facility] is 80 ? 114 seconds. [...] Shahid MD HEMATOLOGY ORDERABLES Performing Organization Address City/[facility]/ZIP Code Phon e Number [address] POCT Glucose (07/06/2017 2:20 AM EST) P athologist Signature POC Glucose 115 65 - 199 [facility] mg/dL [facility] LABORATORY Comment: Supplemental ranges: [...] City/State/[place] [address] (ABNORMAL) Cardiac Enzymes (LEB/CGP) (07/06/2017 2:20 AM EST) P athologist Signature Troponin-T 2.13 (H) 0.00 - [place] RYAN 0.00 ng/mL [facility] LABORATORY Comment: The 99th [...] additional sample may be indicated. Reference: Third [place] Definition of Myocardial Infarction. Journal of the [...] City/State/[place] [address] (ABNORMAL) Hemoglobin A1c (07/06/2017 2:20 AM EST) Analysis Performed At Patho logist Time Signature Hemoglobin A1C 6.8 (H) 4.3 - 5.6 [facility] % [facility] LABORATORY Comment: Reference Range: 4.3 [...] S67-28 Est Avg Gluc See note mg/dL [place] [...] Additional resources are available on [facility] ADA website. Macario HAMMOND, Ruthann J, Deysi R, et al. ??Tr anslating the A1C assay into estimated average glucose values. ??Diabetes Care 2008:31(8):1378-1402. Specimen Anatomical Collection Method Collection Time Receive d Time (Source) Location / / Volume Laterality Blood specimen 07/06/2017 2:20 AM 017 2:34 (specimen) EST AM EST Resulting Agency Comment Spec In Lab Daphne Shahid MD CHEMISTRY ORDERABLES Performing Organization Address City/State/[place] [address] (ABNORMAL) Lipid Panel (07/06/2017 2:20 AM EST) Patholo gist Method Time Signature Chol, Total 150 <=239 BAR[place]A mg/dL [facility] LABORATORY Triglycerides 129 <=199 [facility] mg/dL [facility] LABORATORY HDL 32 (L) >=40 [place] mg/dL [facility] LABORATORY LDL Cholesterol 92 <=190 [facility] mg/dL [facility] LABORATORY Chol/HDL Ratio 4.7 ratio [facility] LABORATORY Lipid See Note BARBARA Interpretation [facility] LABORATORY Comment: Lipid management should be guided by a p atient? s ASCVD risk, goals and preferences. ACC/AHA Guidelines recommend high intens ity statin if clinical ASCVD or LDL greater than or equal to 190 mg/dL. http://[employer].mobile melting gmbh/QFB-AQN-Dbjakebtd Adults aged 40-75 with LDL 70-189 mg/dL should have their 10 year ASCVD risk estimated with the ACC/AHA ASCVD risk es timator http://tools.acc.org/UQHCR-Awel-Qmwvthex r/ Statin should be discussed if risk [...] City/State/[place] [address] POCT Glucose (07/06/2017 1:09 AM EST) P athologist Signature POC Glucose 121 65 - 199 [facility] mg/dL [facility] LABORATORY Comment: Supplemental ranges: [...] City/State/[place] [address] POCT Glucose (07/06/2017 12:06 AM EST) P athologist Signature POC Glucose 147 65 - 199 [place] RYAN mg/dL [facility] LABORATORY Comment: Supplemental ranges: [...] City/State/[place] [address] (ABNORMAL) POCT Glucose (07/05/2017 10:56 PM EST) P athologist Signature POC Glucose 200 (H) 65 - 199 [place] RYAN mg/dL [facility] LABORATORY Comment: Supplemental ranges: [...] City/State/[place] [address] (ABNORMAL) POCT Glucose (07/05/2017 10:05 PM EST) P athologist Signature POC Glucose 225 (H) 65 - 199 [place] RYAN mg/dL [facility] LABORATORY Comment: Supplemental ranges: [...] City/State/[place] [address] (ABNORMAL) POCT Glucose (07/05/2017 9:02 PM EST) P athologist Signature POC Glucose 301 (H) 65 - 199 [facility] mg/dL [facility] LABORATORY Comment: Supplemental ranges: [...] City/State/[place] [address] XR Chest PA or [...] Neutr Abs (ANC) 9.08 (H) 1.70 - [facility] 6.10 [facility] x10(3)/[facility] L LABORATORY Lymphocytes % 7.0 % [facility] LABORATORY Lymphocytes Abs 0.7 (L) 0.9 - 3.2 [facility] x10(3)/[facility] LABORATORY Monocytes % 3.7 % [facility] LABORATORY Monocyte Abs 0.4 0.3 - 0.9 [facility] x10(3)/[facility] LABORATORY Eosinophils % 0.1 % [facility] LABORATORY Eosinophils Abs 0.0 0.0 - 0.4 [facility] x10(3)/[facility] LABORATORY Basophils % 0.2 % [facility] LABORATORY Basophils Abs 0.0 0.0 - 0.1 [facility] x10(3)/[facility] LABORATORY Immature Gran [...] Gran Abs 0.06 (H) 0.00 - 0.04 x10(3)/[facility] LABORATORY Specimen Anatomical Collection Method Collection Time Receive d Time (Source) Location / / Volume Laterality Blood specimen 07/05/2017 8:20 PM 017 8:27 (specimen) EST PM EST Resulting Agency Comment Spec In Lab Daphne Shahid MD HEMATOLOGY ORDERABLES Performing Organization Address City/State/[place] [address] (ABNORMAL) Hemogram (07/05/2017 8:20 PM EST) Analysis Performed At Patho logist Time Signature WBC 10.3 (H) 4.0 - 9.5 [facility] x10(3)/[facility] LABORATORY RBC 4.64 4.58 - [facility] 5.54 [facility] x10(6)/[facility] LABORATORY Hemoglobin 14.1 13.7 - [facility] 16.5 gm/dL [facility] LABORATORY Hematocrit 40.8 40.5 - [facility] 48.5 % [facility] LABORATORY MCV 87.9 82.9 - [facility] 93.1 [facility] LAB[facility]ORY MCH 30.4 27.5 - [place] OLIVASCK 32.1 pg [facility] LABORATORY MCHC 34.6 32.0 - [place] OLIVASCK 35.7 gm/dL [facility] LABORATORY Platelets 204 145 - 357 [facility] x10(3)/[facility] LABORATORY RDWSD 46.1 (H) 36.0 - [facility] 45.0 [facility] LABORATORY RDWCV 14.5 (H) 11.4 - [facility] RYAN 13.8 % [facility] LABORATORY MPV 9.7 7.6 - 12.9 [facility] LABORATORY nRBC % Auto 0.0 % [facility] LABORATORY nRBC Abs Auto 0.000 0.000 - [place]BARA ZHAORYAN 0.000 [facility] x10(3)/[facility] LABORATORY Specimen Anatomical Collection Method Collection Time Receive d Time (Source) Location / / Volume Laterality Blood specimen 07/05/2017 8:20 PM 017 8:27 (specimen) EST PM EST Resulting Agency Comment Spec In Lab Daphne Shahid MD HEMATOLOGY ORDERABLES Performing Organization Address City/State/[place] [address] APTT (07/05/2017 8:20 PM EST) P athologist Signature PTT 32 25 - 35 sec [facility] LABORATORY Comment: The recommended therapeutic range for fu ll dose, unfractionated heparin at [facility] is 80 ? 114 seconds. [...] City/State/[place] [address] (ABNORMAL) Cardiac Enzymes (LEB/CGP) (07/05/2017 8:20 PM EST) athologist Signature Troponin-T 2.11 (H) 0.00 - [place] OLIVASCK 0.00 ng/mL [facility] LABORATORY Comment: The 99th [...] additional sample may be indicated. Reference: Third [place] Definition of Myocardial Infarction. Journal of the [...] City/State/[place] [address] (ABNORMAL) Magnesium (07/05/2017 8:20 PM EST) P athologist Signature Magnesium 0.68 (L) 0.69 - 1.07 [facility] mmol/L [facility] LABORATORY Specimen Anatomical Collection Method Collection Time Receive d Time (Source) Location / / Volume Laterality Blood specimen 07/05/2017 8:20 PM 017 8:27 (specimen) EST PM EST Resulting Agency Comment Spec In Lab Daphne Shahid MD CHEMISTRY ORDERABLES Performing Organization Address City/State/[place] [address] (ABNORMAL) Basic Metabolic Panel (non-fasting) (07/05/2017 8:20 PM EST) P athologist Signature Glucose Lvl 321 (H) 65 - 199 [facility] mg/dL [facility] [...] or in patients with acute kidney failure. http://[employer].mobile melting gmbh/DHnkdep http://[employer]/DHMCnkf Specimen Anatomical Collection Method Collection Time Receive d Time (Source) Location / / Volume Laterality Blood specimen 07/05/2017 8:20 PM 017 8:27 (specimen) EST PM EST Resulting Agency Comment Spec In Lab Daphne Shahid MD CHEMISTRY ORDERABLES Performing Organization Address City/State/ZIP Code [place] e [place] [address] (ABNORMAL) POCT Glucose (07/05/2017 7:32 PM EST) P athologist Signature POC Glucose 296 (H) 65 - 199 [facility] mg/dL [facility] LABORATORY Comment: Supplemental ranges: <140 mg/dL before meals <180 mg/dL all other times of the day Specimen Anatomical Collection Method Collection Time Receive d Time (Source) Location / / Volume Laterality Blood specimen 07/05/2017 7:32 PM 017 7:32 (specimen) EST PM EST Daphne Shahid MD POINT OF CARE TEST ORDERABLE S Performing Organization Address City/State/[place] [address] CARDIAC CATHETERIZATION (07/05/2017 6:47 PM EST) Anatomical Region Laterality Modality Other Specimen (Source) Anatomical Location Collection Method / Collectio n Time Received Time / Laterality Volume Narrative 07/05/2017 7:27 PM EST ?[facility] ? Cardiac Cathete rization/Intervention Report ? Patient Name: Natalya, Gregory ? Procedure Date: 07/05/2017 ? A #: [id number] ? Primary Physician: Clarisa, Jet T ? Case #: [id number] ? File Name: [id number] ? Catheterization Order Number: [id number] ? [facility] ? Final Report [place], [place] ? Patient Name: ? Gregory Natalya ?ID#: ?[id number] ? : ?1945 ? Procedure Date: ? [...] presented with: non -STEMI (w/i 7 days). [place] ?Cardiovascular Society angina c lass was IV. 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 ? Jet Mckenna M.D. ? Electronically Signed by: Jet bunch M.D. ? Report Finalized: 07/05/2017 ??19:23 ? Report Last Ammended: 10/26/2017 ??10:29 ? Procedure Note Jet Mckenna MD - 10/26/2017Formatt ing of this note might be different from the original. [facility] Cardiac Catheterization/Intervention Re port Patient Name: Gregory Hoang Procedure Date: 07/05/2017 A #: [id number] Primary Physician: Jet Mckenna Case #: [id number] File Name: [id number] Catheterization Order Number: [id number] [facility] Final Report [place], [place] Patient Name: Gregory Hoang ID#: [id number] : 1945 Procedure Date: July 05, [...] presented with: non-STEMI ( w/i 7 days). [place] Cardi[employer] Society angina class was IV. 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 Jet Mckenna M.D. Electronically Signed by: [...] Mccollum ? (Age): 1945(72y) Med Rec#: ? [id number] ?Sex: ?M ? Site Loc: ? [facility] ?Ht / Wt: ??173(cm)/86(kg) Pt. Loc: ?CCU ? BSA: ?2 Study Date: ?? 07/05/2017 ?Pt. Type: Inpatient Tape: ? Referring: Daphne Shahid ([id number]) Referring: MANDA ALCANTAR Reading: Bldae Preston ([id number]) Cellophane Worker: Dayami Paula BA, [facility] [...] E-wave Vmax ?0.8 ?m/sec ? MV deceleration xmag443 ?msec ? MV A-wave Vmax ?0.8 ?m/sec [...] ? Mid-Inferior ?Akinetic ? Mid-Inferoseptal ?Hypokinetic ? Grayson-Septal ? Akinetic ? Grayson-Anterior ? Hypokinetic ? Grayson-Lateral ?Hypokinetic ? Grayson-Inferior ? Akinetic ? Grayson-Tip ?Akinetic ? This report has been electronically sign ed by: _ Blade Preston MD ? 07/06/2017 08 :53:15 Images reviewed and interpretation verif ied [facility] Cardiac Ultrasound Laboratory Procedure Note Blade Preston MD - 07/06/2017Formatt ing of this note might be different from the original. Procedure: Transthoracic Echocardiogram Patient: NATALYA MCBRIDE(Age): [birth year]72y) Med Rec#: [id number] Sex: M Site Loc: [facility] Ht / Wt: 173(cm)/86(kg) Pt. Loc: CCU BSA: 2 Study Date: 07/05/2017 Pt. Type: Inpatie nt Tape: Referring: Daphne Shahid ([id number]) Referring: MANDA ALCANTAR Reading: Blade Preston ([id number]) Cellophane Worker: Dayami Paula BA, [facility] [...] MV E-wave Vmax 0.8 m/sec MV deceleration sioo231 msec MV A-wave Vmax 0.8 m/sec MV [...] Hypokinetic Mid-Posterolateral Hypokinetic Mid-Inferior Akinetic Mid-Inferoseptal Hypokinetic Grayson-Septal Akinetic Grayson-Anterior Hypokinetic Grayson-Lateral Hypokinetic Grayson-Inferior Akinetic Grayson-Tip Akinetic This report has been electronically sign ed by: _ Blade Preston MD 07/06/2017 08:53:15 Images reviewed and interpretation verif ied [facility] Cardiac Ultrasound Laboratory Daphne Shahid MD ECHO ORDERABLES Differential, Automated (07/05/2017 4:55 PM EST) athologist Signature Neutrophils % 77.0 % [facility] LABOR[facility]ORY Neutr Abs (ANC) 5.26 1.70 - [facility] 6.10 [facility] x10(3)/[facility] LABORATORY Lymphocytes % 13.3 % [facility] Lymphocytes Abs 0.9 0.9 - 3.2 [facility] x10(3)/[facility] LABORATORY Monocytes % 8.2 % [facility] Monocyte Abs 0.6 0.3 - 0.9 [facility] x10(3)/[facility] LABORATORY Eosinophils % 0.7 % [facility] Eosinophils Abs 0.0 0.0 - 0.4 [facility] x10(3)/[facility] LABORATORY Basophils % 0.4 % [facility] Basophils Abs 0.0 0.0 - 0.1 [facility] x10(3)/[facility] LABORATORY Immature Gran % 0.40 % [facility] [...] Gran Abs 0.03 0.00 - 0.04 x10(3)/[facility] LABORATORY Specimen Anatomical Collection Method Collection Time Receive d Time (Source) Location / / Volume Laterality Blood specimen 07/05/2017 4:55 PM 017 5:24 (specimen) EST PM EST Resulting Agency Comment Spec In Lab Daphne Shahid MD HEMATOLOGY ORDERABLES Performing Organization Address City/State/[place] [address] (ABNORMAL) Hemogram (07/05/2017 4:55 PM EST) Analysis Performed At Patho logist Time Signature WBC 6.8 4.0 - 9.5 [facility] x10(3)/[facility] LABORATORY RBC 4.67 4.58 - [facility] 5.54 [facility] x10(6)/[facility] LABORATORY Hemoglobin 14.0 13.7 - [facility] 16.[facility] gm/dL [facility] LABORATORY Hematocrit 41.0 40.5 - [facility] 48.5 % [facility] LABORATORY MCV 87.8 82.9 - [facility] LAB[facility] MCH 30.0 27.5 - [facility] RYAN 32.1 pg [facility] LABORATORY MCHC 34.1 32.0 - [facility] 35.7 gm/dL [facility] LABORATORY Platelets 197 145 - 357 [facility] x10(3)/[facility] LABORATORY RDWSD 46.4 (H) 36.0 - [facility] 45.0 [facility] LAB[facility] RDWCV 14.5 (H) 11.4 - [facility] RYAN 13.8 % [facility] LABORATORY MPV 9.7 7.6 - 12.9 [facility] LABORATORY nRBC % Auto 0.0 % [facility] LABOR[facility]ORY nRBC Abs Auto 0.000 0.000 - [facility] 0.000 [facility] x10(3)/[facility] LABORATORY Specimen Anatomical Collection Method Collection Time Receive d Time (Source) Location / / Volume Laterality Blood specimen 07/05/2017 4:55 PM 017 5:24 (specimen) EST PM EST Resulting Agency Comment Spec In Lab Daphne Shahid MD HEMATOLOGY ORDERABLES Performing Organization Address City/State/[place] [address] (ABNORMAL) Cardiac Enzymes (LEB/CGP) (07/05/2017 4:55 PM EST) athologist Signature Troponin-T 1.69 (H) 0.00 - [facility] 0.00 ng/mL [facility] LABORATORY Comment: The 99th [...] additional sample may be indicated. Reference: Third [place] Definition of Myocardial Infarction. Journal of the [...] Shahid MD CHEMISTRY ORDERABLES Performing Organization Address City/[facility]/[place] [address] (ABNORMAL) pro-Brain Natriuretic Peptide (07/05/2017 4:55 PM EST) athologist Signature ProBNP 1,598 (H) <=125 [facility] pg/mL [facility] LABORATORY Specimen Anatomical Collection Method Collection Time Receive d Time (Source) Location / / Volume Laterality Blood specimen 07/05/2017 4:55 PM 017 5:24 (specimen) EST PM EST Resulting Agency Comment Spec In Lab Daphne Shahid MD CHEMISTRY ORDERABLES Performing Organization Address City/[facility]/ZIP Code Phon e Number [address] Magnesium (07/05/2017 4:55 PM EST) athologist Signature Magnesium 0.78 0.69 - 1.07 [facility] mmol/L [facility] LABORATORY Specimen Anatomical Collection Method Collection Time Receive d Time (Source) Location / / Volume Laterality Blood specimen 07/05/2017 4:55 PM 017 5:24 (specimen) EST PM EST Resulting Agency Comment Spec In Lab Daphne Shahid MD CHEMISTRY ORDERABLES Performing Organization Address City/[facility]/[place] [address] (ABNORMAL) Basic Metabolic Panel (non-fasting) (07/05/2017 4:55 PM EST) athologist Signature Glucose Lvl 230 (H) 65 - 199 [facility] mg/dL [facility] [...] in patients with acute kidney failure. http://Viva la Vita/DHnkdep http://[employer]iva la Vita/[facility] MUSKOGEEnkf Specimen Anatomical Collection Method Collection Time Receive d Time (Source) Location / / Volume Laterality Blood specimen 07/05/2017 4:55 PM 017 5:24 (specimen) EST PM EST Resulting Agency Comment Spec In Lab Daphne Shahid MD CHEMISTRY ORDERABLES Performing Organization Address City/[facility]/[place] [address] (ABNORMAL) APTT (07/05/2017 4:55 PM EST) P athologist Signature PTT 41 (H) 25 - 35 sec [facility] Comment: The recommended therapeutic range for fu ll dose, unfractionated heparin at [facility] is 80 ? 114 seconds. [...] City/State/[place] [address] (ABNORMAL) POCT Glucose (07/05/2017 4:53 PM EST) P athologist Signature POC Glucose 208 (H) 65 - 199 [facility] mg/dL [facility] LABORATORY Comment: Supplemental ranges: <140 mg/dL before meals <180 mg/dL all other times of the day Specimen Anatomical Collection Method Collection Time Receive d Time (Source) Location / / Volume Laterality Blood specimen 07/05/2017 4:53 PM 017 4:53 (specimen) EST PM EST Daphne Shahid MD POINT OF CARE TEST ORDERABLE S Performing Organization Address City/State/ZIP Code Phon e Number [address] EKG 12 Lead (07/05/2017 [...] post-op day 1 in the AM Give OK if unable to take PO, Routine Given [...] post-op day 1 in the AM Give OK if unable to take PO, Routine atorvastatin [...] Berry RN) 0615 (Given - Provider: Ale Rnagel, VAMSI) 0530 (Gi cody - Provider: Denice [...] post-op day 1 in the AM Give OK if unable to take PO
Routine Group [...]
Routine documented in this encounter Care Teams Embossing Press Operator Molded Goods Relationship Specialty Start Date End Date Lovely Vicente MD PCP - General 04/16/[address] [place] [address] [address] [place] [address] documented as of this encounter
--- OUTSIDE RECORDS SUMMARY | 2022-04-29 08:19 | XMS_ITS | Encounter Summary ---
:1945 Author Organization [facility] [place] [address] Care Team Providers Name Role Phone MiyaLokeshAngela STACIE Primary Care Provider Encounter Details Date Type Department Care Team Description 01/16/2014 Hospital Encounter Gastroenterology at [facility] Nohemi Swann, [facility] [place] [address] [facility] [phone] [facility] [place], [place] [address] Social History Tobacco Use Types [...] you need to be checked. [facility] [phone] 8a-5p Same Day Endo [phone] 7a-8p Otherwise contact [phone] and ask to speak to the solar process engineer document control supervisor Follow up care is a [...] 0 06/05 subcutaneously nightly. Med Name: Insulin levothyroxine Take 137 mcg by mouth 30 [...] times daily. HCT) 50-25 mg per tablet omeprazole (PRILOSEC) Take 20 mg by mouth 0 06/05/2015 20 mg capsule daily. glyBURIDE (DIABETA) 5 5MG = 1 Tablet(s), PO, 0 06/05/2015 mg tablet Once daily triamcinolone Apply twice daily to 30 g 1 07/31/2013 1 (KENALOG) 0.1 % psoriasis on the body. creamIndications: Neoplasm of unspecified nature of bone, soft tissue, and skin clobetasol (TEMOVATE) Apply twice daily for 2 50 mL 1 0 10/04/2012 04/26/2014 0.05 % external weeks then on weekends solutionIndications: for psoriasis Psoriasis fluocinolone acetonide Twice daily to less 60 mL 2 09/2308/16/2017 (SYNALAR) 0.01 % severe areas of external psoriasis solutionIndications: Psoriasis documented as of this encounter H&P Notes [...] Swann MD - 01/16/2014 9:49 AM EDT [facility] Operative Note Patient Name: Gregory Fatima : [id number] MR#: [id number] Case Date: 01/16/2014 Surgeon: Surgeon(s) and Role: * Nohemi Swann MD - Primary Preoperative diagnosis: 5 yr surv. Full procedure note is documented under the Procedure section of eDH. documented in this encounter Plan of Treatment Upcoming Encounters Date Type Specialty Care Team Description 05/28/2022 Appointment Cardiology Zulma Dolan MD [facility] [place], [place] [address] (Wo rk) 05/28/2022 Laboratory Appointment Lab 05/28/2022 Office Visit Cardiology Zulma Dolan MD [facility] [place] [address] Liz Poole PA [facility] [place] [address] 06/10/2022 Office Visit Dermatology Laura Scherer MD [facility] [address] [place], [place] [address] (Wo rk) documented as of this encounter [...] Surgical Pathology Report (01/16/2014 9:53 AM EDT) [facility] Method Time Signature Surgical CERNER Pathology ? [facility] Report ? Provider: ?? NOHEMI SWANN ?Pt. Name: ?? MALICKEliseo RT, GREGORY E ? Acc #: ?[id number] ?Pt. MRN: ?[id number] ? Col Date: ?? 4 ? /Sex: [...] City/State/ZIP Code Phon e Number [place] [phone] RAKESH WALKER Specimen to [...] Address City/State/[place] [address] [facility] Specimen to Pathology (surgical or derm) (01/16/2014 [...] [facility]/[place] [address] CERNER MILLENNIUM COLONOSCOPY (01/16/2014 7:25 AM EDT) [facility] gist Method Time Signature COLONOSCOPY [facility] PROVATION Endoscopy Patient Name: Gregory Fatima ? Procedure Date: 01/16/2014 7:25 AM ? N: [id number] ? Date of : 1945 ? Age: 68 ? Order #: [id number] ? Procedure: ? Colonoscopy Indications: ? High risk colon cancer surveillance : ? 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 dm on metformin with bs ~ 110 this ? am,s/p melanoma years ago, os a, ? goiter s/p surgery, [facility] Providers: ? Nohemi Swann MD, Blanca [...] Laterality 01/16/2014 7:25 AM EDT Angela Sotelo MARKETING AUTOMATION SPECIALIST GENERAL SURGICAL ORDERABLES Performing Organization Address City/State/ZIP [...] Samuel, VAMSI)0911 (Given - Provider: Blanca Samuel, RN) ONCE PRN, Starting on Wed01/16/14 at 085 6, Until Wed01/16/14 at 1036, Pain, Intra-Operative (Intra-Procedure), Routine midazolam (PF) (VERSED) 1 mg/mL injection (CANCELED) 0856 (Given - Provider: Blanca Samuel RN)0859 (Given - Provider: Blanca Samuel RN)0902 (Given - Provider: Blanca Samuel RN)0911 (Given - Provider: Blanca Samuel RN)0914 (Given - Provider: Blanca Samuel RN) ONCE PRN, Starting on Wed01/16/14 at 085 6, Until Wed01/16/14 at 1036, Sleep, Intra-Operative (Intra-Procedure), Routine documented in this encounter Care Teams Pony Edger Relationship Specialty Start Date End Date Angela Sotelo APRN PCP - General 01/25/13 04/15/[address] [place] [address] documented as of this encounter
--- OUTSIDE RECORDS SUMMARY | 2022-04-29 08:19 | XMS_ITS | Encounter Summary ---
:1945 Author Organization [facility] [place] [address] Care Team Providers Name Role Phone Lovely Vicente MD Primary Care Provider Reason for Visit Reason Onset Date Comments Pre Procedure Call 12/02/2016 Encounter Details Date Type Department Care Team Description 12/02/2016 Telephone Dermatology at [facility] Mira James LPN Pre Procedure Call [address] [place] [address] Social History Tobacco Use Types Packs/Day [...] Zulma Dolan MD [facility] [place], [place] [address] (Wo lissa) 05/28/2022 Laboratory Appointment Lab 05/28/2022 Office Visit Cardiology Zulma Dolan MD [facility] [place] [address] Liz Poole PA [facility] [place] [address] 06/10/2022 Office Visit Dermatology Laura Scherer MD [facility] DR [address] [place], [place] [address] (Wo rk) documented as of this encounter Visit Diagnoses Not on filedocumented in this encounter Care Teams Roof Cement And Paint Maker Relationship Specialty Start Date End Date Lovely Vicente MD PCP - General 04/16/[address] [place] [address] documented as of this encounter
--- OUTSIDE RECORDS SUMMARY | 2022-04-29 08:19 | XMS_ITS | Encounter Summary ---
:1945 Author Organization [facility] [place] [address] Care Team Providers Name Role Phone Lovely Vicente MD Primary Care Provider Reason for Visit Reason Comments Skin Check Encounter Details Date Type Department Care Team Description 06/05/2016 Office Visit Dermatology at [facility]; Abdelrahman HOOPER MD Seborrheic keratosis; [address] [facility] [place] (actinic keratosis); [place] [address] Multiple nevi; [phone] [facility] Scar [address] [place], [place] [address] Social History Tobacco Use Types [...] Cardiology Zulma Dolan MD [facility] [place], [place] [address] (Wo rk) 05/28/2022 Laboratory Appointment Lab 05/28/2022 Office Visit Cardiology Zulma Dolan MD [facility] [place] [address] Liz Poole PA [facility] [place] [address] 06/10/2022 Office Visit Dermatology Laura Scherer MD [facility] [address] [place], [place] [address] (Wo rk) documented as of this encounter Visit Diagnoses Diagnosis History of melanoma Personal history of malignant melanoma o f skin Seborrheic keratosis Other seborrheic keratosis [place] (actinic keratosis) Actinic keratosis Multiple nevi Benign neoplasm of skin, site unspecifie d Scar Scar condition and fibrosis of skin documented in this encounter Care Teams Foreclosure Specialist Relationship Specialty Start Date End Date Lovely Vicente MD PCP - General 04/16/[address] [place] [address] documented as of this encounter
--- OUTSIDE RECORDS SUMMARY | 2022-04-29 08:19 | XMS_ITS | Encounter Summary ---
:1945 Author Organization [facility] [place] [address] Care Team Providers Name Role Phone Lovely Vicente MD Primary Care Provider Reason for Visit Reason Onset Date Comments Medication Refill 06/19/2016 Encounter Details Date Type Department Care Team Description 06/19/2016 Refill Endocrinology at [facility] Luz Stallings MD [facility] [place] [address] ENDOCRINOLOGY DEPT [phone] [place], [place] [address] (Wo rk) Social History Tobacco [...] Dolan MD [facility] [place] [address] (Wo rk) 05/28/2022 Laboratory Appointment Lab 05/28/2022 Office Visit Cardiology Zulma Dolan MD [facility] [place] [address] Liz Poole PA [facility] [place] [address] 06/10/2022 Office Visit Dermatology Laura Scherer MD [facility] [address] [place], [place] [address] (Wo rk) documented as of this encounter Visit Diagnoses Not on filedocumented in this encounter Care Teams Industrial Cleaning Technician Relationship Specialty Start Date End Date Lovely Vicente MD PCP - General 04/16/[address] [place], [place] [address] documented as of this encounter
--- OUTSIDE RECORDS SUMMARY | 2022-04-29 08:19 | XMS_ITS | Encounter Summary ---
:1945 Author Organization [facility] [place] [address] Care Team Providers Name Role Phone Lovely Vicente MD Primary Care Provider Encounter Details Date Type Department Care Team Description 09/03/2016 Office Visit Endocrinology at [facility] Maria Ines Stallings of [facility] [place] [address] [place] [address] ENDOCRINOLOGY DEPT [place], [place] [address] Social History Tobacco Use Types [...] to his magnesium pill. LUZ PRESCOTT MD Subcontract Managercontrol systems drafting officer Section of Endocrinology [facility] Luz Prescott MD - 09/03/2016 11:30 AM [...] sonographic evidence of recurrence. LUZ PRESCOTT MD Subcontract Managercontrol systems drafting officer Section of Endocrinology [facility] documented in this encounter Plan of Treatment Upcoming Encounters Date Type Specialty Care Team Description 05/28/2022 Appointment Cardiology Zulma Dolan MD [facility] [address] [place], [place] [address] (Wo rk) 05/28/2022 Laboratory Appointment Lab 05/28/2022 Office Visit Cardiology Zulma Dolan MD [facility] [place] [address] Liz Poole PA [facility] [place] [address] 06/10/2022 Office Visit Dermatology Laura Scherer MD [facility] [address] [place], [place] [address] (Wo rk) documented as of this encounter Results Thyroglobulin (09/07/2017 2:41 PM EST) P athologist Signature Thyroglobulin 1.4 <=54.9 KATALINA RYAN ng/mL [facility] Comment: Thyroglobulin [...] not been established. Assay performed using the [employer] Immulite T g immunometric assay (lowest detection [...] Prescott MD CHEMISTRY ORDERABLES Performing Organization Address City/[facility]/ZIP Code Phon e Number [address] TSH (09/07/2017 2:41 PM EST) athologist Signature TSH 3.93 0.27 - 4.20 [facility] mlU/ML [facility] Specimen Anatomical Collection Method Collection Time Receive d Time (Source) Location / / Volume Laterality Blood specimen 09/07/2017 2:41 PM 018 2:46 (specimen) EST PM EST Resulting Agency Comment Spec In Lab Luz Prescott MD CHEMISTRY ORDERABLES Performing Organization Address City/[facility] Phon e Number [address] Thyroglobulin (09/03/2016 11:07 AM EST) athologist Signature Thyroglobulin <0.4 <=54.9 [facility] ng/mL [facility] Comment: Interpret with caution. Tg [...] than those obtained with T4 withdrawal protocol ([place] BR et al. J Clin Endo Metab 1999;84:4040-3124). Assay performed using the DPC Immulite T [...] Prescott MD CHEMISTRY ORDERABLES Performing Organization Address City/[facility]/ZIP Code Phon e Number [address] TSH (09/03/2016 11:07 AM EST) P athologist Signature TSH 3.01 0.27 - 4.20 [facility] mcIU/mL [facility] LABOR[facility]ORY Specimen Anatomical Collection Method Collection Time Receive d Time (Source) Location / / Volume Laterality Blood specimen 09/03/2016 11:07 7 (specimen) AM EST 11:22 AM EST Resulting Agency Comment Spec In Lab Luz Prescott MD CHEMISTRY ORDERABLES Performing Organization Address City/[facility]/[place] [address] documented in this encounter Visit Diagnoses Diagnosis Hx of papillary thyroid carcinoma Personal history of malignant neoplasm o f thyroid documented in this encounter Care Teams Relations Director Relationship Specialty Start Date End Date Lovely Vicente MD PCP - General 04/16/[address] [place] [address] documented as of this encounter
--- OUTSIDE RECORDS SUMMARY | 2022-04-29 08:19 | XMS_ITS | Encounter Summary ---
:1945 Author Organization [facility] [place] [address] Care Team Providers Name Role Phone Lovely Vicente MD Primary Care Provider Reason for Visit Reason Onset Date Comments Referral 10/30/2015 Urgent referral for mac on SIM[address]N CHAVIS Encounter Details Date Type Department Care Team Description 10/30/2015 Telephone Ophthalmology at [facility] C Jayson Ruiz Referral (Urgent [facility] MD Grabiel referral for mac on [facility] [address]N [place]) [place] [address] OPHTHALMOLOGY DEPT. [phone] [place], [place] [address] (Wo rk) Social History Tobacco [...] Zulma Dolan MD [facility] [address] [place], [place] [address] (Wo rk) 05/28/2022 Laboratory Appointment Lab 05/28/2022 Office Visit Cardiology Zulma Dolan MD [facility] [place] [address] Liz Poole PA [facility] [place] [address] 06/10/2022 Office Visit Dermatology Laura Scherer MD [facility] [address] [place], [place] [address] (Wo rk) documented as of this encounter Visit Diagnoses Not on filedocumented in this encounter Care Teams Mandarin Tutor Relationship Specialty Start Date End Date Lovely Vicente MD PCP - General 04/16/[address] [place], [place] [address] documented as of this encounter
--- OUTSIDE RECORDS SUMMARY | 2022-04-29 08:19 | XMS_ITS | Encounter Summary ---
:1945 Author Organization [facility] [place] [address] Care Team Providers Name Role Phone Lovely Vicente MD Primary Care Provider Encounter Details Date Type Department Care Team Description 09/03/2016 Laboratory Appointment Lab at [facility] Hx of [facility] [place] [phone] Social History Tobacco Use Types Packs/Day Years [...] [facility] [place] [address] [place] [address] (Wo rk) 05/28/2022 Laboratory Appointment Lab 05/28/2022 Office Visit Cardiology Zulma Dolan MD [facility] [place] [address] [facility] [place] [address] 06/10/2022 Office Visit Dermatology Laura Scherer MD [facility] ER DR TEJA GR-DERMAT [place], [place] [address] (Wo rk) documented as [...] AM EST) athologist Signature Thyroglobulin <0.4 <=54.9 [facility] ng/mL [facility] Comment: Interpret with caution. [...] than those obtained with T4 withdrawal protocol (Ganado BR et al. J Clin Endo Metab 1999;84:6277-8352). Assay performed using the DPC Immulite T [...] EST Resulting Agency Comment Spec In Lab Lzu Prescott MD CHEMISTRY ORDERABLES Performing Organization Address City/State/ZIP Code Phon e Number [address] TSH (09/03/2016 11:07 AM EST) P athologist Signature TSH 3.01 0.27 - 4.20 [facility] mcIU/mL [facility] Specimen Anatomical Collection Method Collection Time Receive d Time (Source) Location / / Volume Laterality Blood specimen 09/03/2016 11:07 7 (specimen) AM EST 11:22 AM EST Resulting Agency Comment Spec In Lab Luz Prescott MD CHEMISTRY ORDERABLES Performing Organization Address City/[facility]/ZIP [facility] [place] [address] documented in this encounter Visit Diagnoses Diagnosis Hx of papillary thyroid carcinoma Personal history of malignant neoplasm o f thyroid documented in this encounter Care Teams Inventory Specialist Manager Relationship Specialty Start Date End Date Lovely Vicente MD PCP - General 04/16/15 [address] [place] [address] documented as of this encounter
--- OUTSIDE RECORDS SUMMARY | 2022-04-29 08:19 | XMS_ITS | Encounter Summary ---
:1945 Author Organization [facility] [place] [address] Care Team Providers Name Role Phone MiyaAngela STACIE Primary Care Provider Encounter Details Date Type Department Care Team Description 04/26/2014 Office Visit Endocrinology at [facility] Albertina Palmer, Papillary thyroid [facility] [place] [address] CENTER [phone] ENDOCRINOLOGY DEPT [place] [address] Social History Tobacco Use Types Packs/Day Years [...] on [place]. Rosalind Palmer Endocrine Staff Physician [facility] Rosalind Palmer MD - 04/26/2014 8:39 AM [...] one yr Rosalind Palmer Endocrine Staff Physician [facility] documented in this encounter Plan of Treatment Upcoming Encounters Date Type Specialty Care Team Description 05/28/2022 Appointment Cardiology Zulma Dolan MD [facility] Dr [place], [place] [address] (Wo rk) 05/28/2022 Laboratory Appointment Lab 05/28/2022 Office Visit Cardiology Zulma Dolan MD [facility] [place] [address] Liz Poole PA [facility] [place] [address] 06/10/2022 Office Visit Dermatology Laura Scherer MD [facility] DR TEJA GR-[place], [place] [address] (Wo rk) documented as [...] athologist Signature Thyroglobulin <0.4 <=54.9 CERNER ng/mL [facility] Comment: Interpret with caution. Tg [...] BR et al. J Clin Endo Metab 1999;84:4194-0883). Assay performed using the DPC Immulite T [...] Address City/State/ZIP Code Phon e Number [address] CERNER MILLENNIUM (ABNORMAL) TSH [...] City/[facility]/ZIP Code Phon e Number [address] CERNER MILLENNIUM documented in this encounter Visit Diagnoses Diagnosis Papillary thyroid carcinoma Malignant neoplasm of thyroid gland documented in this encounter Care Teams Paper Baler Relationship Specialty Start Date End Date Angela Holliday APRN PCP - General 01/25/13 04/15/[address] [place] [address] documented as of this encounter
--- OUTSIDE RECORDS SUMMARY | 2022-04-29 08:19 | XMS_ITS | Encounter Summary ---
:1945 Author Organization [facility] [place] [address] Care Team Providers Name Role Phone Lovely Vicente MD Primary Care Provider Encounter Details Date Type Department Care Team Description 07/05/2017 Telephone Cardiology Kim Galindo MD [facility] [place] [address] CARDIOLOGY DEPT [phone] [place], [place] [address] (Wo rk) Social History Tobacco [...] 1:54pm Referring Provider: Ivania CROWELL) Patient Location: [facility] Presenting Symptoms per OSH: [...] infarct and elevated troponin, transport patient to [facility] for cath this afternoon and arrhythmia monitoring. Kim Galindo MD Color Separation Photographer documented in this encounter Plan of Treatment Upcoming Encounters Date Type Specialty Care Team Description 05/28/2022 Appointment Cardiology Zulma Dolan MD [facility] [address] [place], [place] [address] (Wo rk) 05/28/2022 Laboratory Appointment Lab 05/28/2022 Office Visit Cardiology Zulma Dolan MD [facility] [place] [address] Liz Poole PA [facility] [place] [address] 06/10/2022 Office Visit Dermatology Laura Scherer MD [facility] DR TE[address] GR[address]DERMAT [place], [place] [address] (Wo rk) documented as of this encounter Visit Diagnoses Not on filedocumented in this encounter Care Teams Passementerie Worker Relationship Specialty Start Date End Date Loveyl Vicente MD PCP - General 04/16/[address] [place] [address] documented as of this encounter
--- OUTSIDE RECORDS SUMMARY | 2022-04-29 08:19 | XMS_ITS | Encounter Summary ---
:1945 Author Organization [facility] [place] [address] Care Team Providers Name Role Phone Lovely Vicente MD Primary Care Provider Reason for Visit Reason Comments Skin Check Encounter Details Date Type Department Care Team Description 04/16/2015 Follow-Up Dermatology at [facility] x of melanoma of skin; Abdelrahman HOOPER MD Multiple benign nevi [address] [place] [address] [facility]DER[facility] [place], [place] [address] (Wo rk) Social History Tobacco [...] Drum (ACCU-CHEK COMPACT TEST) Strip by [facility].(Non- Drug; Combo Route) route 2 times daily. [...] encounter. Rigoberto Garcia MD Section of Dermatology [facility] documented in this encounter Plan of Treatment Upcoming Encounters Date Type Specialty Care Team Description 05/28/2022 Appointment Cardiology Zulma Dolan MD [facility] [place], [place] [address] (Wo rk) 05/28/2022 Laboratory Appointment Lab 05/28/2022 Office Visit Cardiology Zulma Dolan MD [facility] [place] [address] Liz Poole PA [facility] [place] [address] 06/10/2022 Office Visit Dermatology Laura Scherer MD [facility] DR [address] GR-DERMAT [place], [place] [address] (Wo rk) documented as of this encounter Visit Diagnoses Diagnosis Hx of melanoma of skin Personal history of malignant melanoma o f skin Multiple benign nevi Benign neoplasm of skin, site unspecifie d documented in this encounter Care Teams Spotter Driver Relationship Specialty Start Date End Date Lovely Vicente MD PCP - General 04/16/[address] [place] [address] [address] [place] [address] documented as of this encounter
--- OUTSIDE RECORDS SUMMARY | 2022-04-29 08:19 | XMS_ITS | Encounter Summary ---
:1945 Author Organization [facility] [place] [address] Care Team Providers Name Role Phone Angela Holliday APRN Primary Care Provider Encounter Details Date Type Department Care Team Description 04/30/2014 Orders Only Endocrinology at [facility] Albertina Palmer, Thyroid cancer [facility] Jorge Boyer MD (Primary Dx) [place] [address] [facility] [phone] CENTER ENDOCRINOLOGY DEPT [place], [place] [address] Social History Tobacco Use Types [...] Dolan MD [facility] er Dr [place], [place] [address] (Wo rk) 05/28/2022 Laboratory Appointment Lab 05/28/2022 Office Visit Cardiology Zulma Dolan MD [facility] [place] [address] Liz Poole PA [facility] [place] [address] 06/10/2022 Office Visit Dermatology Laura Scherer MD [facility] ER [address] TEJA GR[address]DERMAT [place], [place] [address] (Wo rk) documented as of this encounter Visit Diagnoses Diagnosis Thyroid cancer - Primary Malignant neoplasm of thyroid gland documented in this encounter Care Teams Building Construction Superintendent Relationship Specialty Start Date End Date Angela Holliday APRN PCP - General 01/25/13 04/15/[address] [place] [address] documented as of this encounter
--- OUTSIDE RECORDS SUMMARY | 2022-04-29 08:19 | XMS_ITS | Encounter Summary ---
:1945 Author Organization [facility] [place] [address] Care Team Providers Name Role Phone Angela Holliday APRN Primary Care Provider Reason for Visit Reason Comments Skin Check Encounter Details Date Type Department Care Team Description 07/31/2013 Follow-Up Dermatology at [facility] eoplasm of unspecified nature of bone, soft tissue, and skin (Primary Dx); Abdelrahman HOOPER MD Seborrheic psoriasis- scalp and ingtergl uteal area; [address] [facility] Atypical nevus [place] [address] [address] [facility] [place], [place] [address] (Wo rk) Social History Tobacco [...] MD [facility] [address] [place] [address] (Wo lissa) 05/28/2022 Laboratory Appointment Lab 05/28/2022 Office Visit Cardiology Zulma Dolan MD [facility] [place] [address] Liz Poole PA [facility] [place] [address] 06/10/2022 Office Visit Dermatology Laura Scherer MD [facility] DR TE[address] GR-DERMAT [place], [place] [address] (Wo rk) Scheduled Orders Name [...] ?? GREGORY HOANG ?A ? Acc #: ?[id number] ? Pt. ? Col Date: ?? 07/31/2013 [...] negative controls. ??These ? IHC studies provide [facility] pathologist with adjunctive diagnostic information. ? Antibody [...] ?? GREGORY HOANG ?A ? Acc #: ?[id number] ? Pt. ? Col Date: ?? 07/31/2013 [...] PATHOLOGY/CYTOLOGY ORDERABLE S Performing Organization Address City/[facility]/ZIP Code Phon e Number [address] CERNER MILLENNIUM Specimen [...] PATHOLOGY/CYTOLOGY ORDERABLE S Performing Organization Address City/[facility]/[place] [address] CERNER MILLENNIUM documented in this encounter Visit Diagnoses Diagnosis Neoplasm of unspecified nature of bone, soft tissue, and skin - Primary Seborrheic psoriasis- scalp and ingtergl uteal area Other psoriasis Atypical nevus of abdominal wall Benign neoplasm of skin of trunk, except scrotum documented in this encounter Care Teams Community Relations Liaison Relationship Specialty Start Date End Date Angela Holliday APRN PCP - General 01/25/13 04/15/[address] [place] [address] documented as of this encounter
--- OUTSIDE RECORDS SUMMARY | 2022-04-29 08:19 | XMS_ITS | Encounter Summary ---
:1945 Author Organization [facility] [place] [address] Care Team Providers Name Role Phone Angela Sotelo APRN Primary Care Provider Encounter Details Date Type Department Care Team Description 01/16/2014 Surgery Gastroenterology at [facility] [place] [place] Nohemi Jaimes, COLONOSCOPY, [facility] Jorge mcnamara MD [place], [place] [address] [facility] L[facility] BY SNARE ([facility] [phone] DR Cintron) GASTROENTEROLOGY DEPT. [employer], [place] [address] Social History Tobacco Use [...] you need to be checked. Wednesday[facility] [phone] 8a-5p Same Day Endo [phone] 7a-8p Otherwise contact [phone] and ask to speak to the vocational training instructor outside solar sales consultant Follow up care is a [...] Jaimes MD - 01/16/2014 9:49 AM EDT [facility] [place] [place] Operative Note Patient Name: Gregory Fatima : [id number] MR#: [id number] Case Date: 01/16/2014 Surgeon: Surgeon(s) and Role: * Nohemi Jaimes MD - Primary Preoperative diagnosis: 5 yr surv. Full procedure note is documented under the Procedure section of eDH. documented in this encounter Plan of Treatment Upcoming Encounters Date Type Specialty Care Team Description 05/28/2022 Appointment Cardiology Zulma Dolan MD [facility] [address] [place] [address] (Wo rk) 05/28/2022 Laboratory Appointment Lab 05/28/2022 Office Visit Cardiology Zulma Dolan MD [facility] [place] [address] Liz Poole PA [facility] [place] [address] 06/10/2022 Office Visit Dermatology Laura Scherer MD [facility] [address] [place] [address] (Wo rk) documented as of this encounter [...] Surgical Pathology Report (01/16/2014 9:53 AM EDT) [employer] Method Time Signature Surgical CERNER Pathology ? [facility] Report ? Provider: ?? SHREE, NOHEMI Gonzalez ?Pt. Name: ?? MALICKA RT, GREGORY E ? Acc #: ?[id number] ?Pt. MRN: ?[id number] ? Col Date: ?? 4 ? /Sex: [...] City/State/ZIP Code Phon e Number [place] [phone] HOSPITAL LAB[address] RAKESH WALKER Specimen to [...] [facility]/[place] [address] CERNER MILLENNIUM Specimen to [...] MD PATHOLOGY/CYTOLOGY ORDERABLE S Performing Organization Address [facility] [place] [address] CERNER MILLENNIUM COLONOSCOPY (01/16/2014 7:25 AM EDT) [facility] gist Method Time Signature COLONOSCOPY [facility] [employer] Endoscopy Patient Name: Gregory Fatima ? Procedure Date: 01/16/2014 7:25 AM ? N: [id number] ? Date of : 1945 ? Age: 68 ? Order #: [id number] ? Procedure: ? Colonoscopy Indications: ? High [...] Laterality 01/16/2014 7:25 AM EDT Angela Sotelo SECOND OPERATOR GENERAL SURGICAL ORDERABLES Performing Organization Address [...] Blanca Samuel, RN)0911 (Given - Provider: Blanca Samuel RN) ONCE PRN, Starting on Wed01/16/14 at 085 6, Until Wed01/16/14 at 1036, Pain, Intra-Operative (Intra-Procedure), Routine midazolam (PF) (VERSED) 1 mg/mL injection (CANCELED) 0856 (Given - Provider: Blanca Samuel RN)0859 (Given - Provider: Blanca Samuel RN)0902 (Given - Provider: Blanca Samuel, RN)0911 (Given - Provider: Blanca Samuel, VAMSI)0914 (Given - Provider: Blanca Samuel, VAMSI) ONCE PRN, Starting on Wed01/16/14 at 085 6, Until Wed01/16/14 at 1036, Sleep, Intra-Operative (Intra-Procedure), Routine documented in this encounter Care Teams Licensed Prosthetist/Orthotist Relationship Specialty Start Date End Date Angela Sotelo APRN PCP - General 01/25/13 04/15/15 [address] [place] [address] documented as of this encounter
--- OUTSIDE RECORDS SUMMARY | 2022-04-29 08:19 | XMS_ITS | Encounter Summary ---
:1945 Author Organization [facility] [place] [address] Care Team Providers Name Role Phone Lovely Vicente MD Primary Care Provider Encounter Details Date Type Department Care Team Description 11/28/2016 Telephone Dermatology at [facility] Rigoberto Garcia III, [address] [place] [address] [facility] [phone] [facility] SIMÓN-DERMAT [place], [place] [address] (Wo rk) Social History Tobacco [...] provider. Rigoberto Garcia MD Section of Dermatology [facility] documented in this encounter Plan of Treatment Upcoming Encounters Date Type Specialty Care Team Description 05/28/2022 Appointment Cardiology Zulma Dolan MD [facility] Dr [place], [place] [address] (Wo rk) 05/28/2022 Laboratory Appointment Lab 05/28/2022 Office Visit Cardiology Zulma Dolan MD [facility] [place] [address] Liz Poole PA [facility] [place] [address] 06/10/2022 Office Visit Dermatology Laura Scherer MD [facility] DR TE[address] MARIE-DERMAT [place], [place] [address] (Wo rk) documented as of this encounter Visit Diagnoses Not on filedocumented in this encounter Care Teams Nuclear Plant Operator Relationship Specialty Start Date End Date Lovely Vicente MD PCP - General 04/16/[address] [place] [address] documented as of this encounter
--- OUTSIDE RECORDS SUMMARY | 2022-04-29 08:19 | XMS_ITS | Encounter Summary ---
:1945 Author Organization [facility] [place] [address] Care Team Providers Name Role Phone MiyaAngela STACIE Primary Care Provider Encounter Details Date Type Department Care Team Description 11/27/2013 Orders Only Urology at [facility] Blade Smith, Urinary retention [facility] (Primary Dx) [place] [address] UROLOGY DEPT [place], [place] [address] Social History Tobacco Use Types [...] Dolan MD [facility] er [place], [place] [address] (Wo rk) 05/28/2022 Laboratory Appointment Lab 05/28/2022 Office Visit Cardiology Zulma Dolan MD [facility] [place] [address] Liz Poole PA [facility] [place] [address] 06/10/2022 Office Visit Dermatology Laura Scherer MD [facility] ER DR TEJA GR-DERMAT [place], [place] [address] (Wo rk) documented as of [...] City/State/[place] [address] CERNER MILLENNIUM documented in this encounter Visit Diagnoses Diagnosis Urinary retention - Primary Retention of urine, unspecified documented in this encounter Care Teams Guide Excursion Relationship Specialty Start Date End Date Angela Holliday APRN PCP - General 01/25/13 04/15/[address] [place] [address] documented as of this encounter
--- OUTSIDE RECORDS SUMMARY | 2022-04-29 08:19 | XMS_ITS | Encounter Summary ---
:1945 Author Organization [facility] [place] [address] Care Team Providers Name Role Phone Lovely Vicente MD Primary Care Provider Reason for Visit Reason Comments Nevus excision dysplastic nevus mi d upper abdomen Encounter Details Date Type Department Care Team Description 12/03/2016 Procedure visit Dermatology at Halima Dubois Dysplastic nevus of Road MD Adrián trunk [address] [facility] [address] [facility] [phone] RD-DERMATOLGY [place] [address] Social History Tobacco Use Types Packs/Day Years [...] Halima Cordero MD during the day at [phone] Nurse: Mira [phone] Amy After 5 PM and on weekends, please call the hospital number , and ask for the Piano Maker fermentation manager. documented in this encounter Progress Notes Halima Cordero MD - 12/10/2016 5:41 PM EDT Gwendolyn, Excision shows scar, there is no residual of the severely dysplastic nevus. Please notify patient and check on wound healing. Thank you, DTB Halima Cordero MD - 12/03/2016 3:00 PM EDT Images from the original note were not included. Dermatology Procedure note: Attending: Halima Cordero MD Hot Stick Man: Mira James LPN Referring MD: Rigoberto Garcia [...] to call the clinic or the on-call communications technician over the weekend. ??? Name of Procedure? [...] Cardiology Zulma Dolan MD [facility] [place], [place] [address] (Wo rk) 05/28/2022 Laboratory Appointment Lab 05/28/2022 Office Visit Cardiology Zulma Dolan MD [facility] [place] [address] Liz Poole PA [facility] [place] [address] 06/10/2022 Office Visit Dermatology Laura Scherer MD [facility] DR TEJA GR-DERMAT [place], [place] [address] (Wo rk) documented as of [...] [facility] Method Time Signature Surgical [id number] ?Location: [facility] The signing pathologist has (i) examined the [...] Clinical Diagnosis: Dysplastic nevus, see previous pathology [id number] SPECIMEN PROCESSING A - Labeled/Fixative: Mid-upper abdomen, [...] Organization Address City/State/Z[place] [address] Specimen to Pathology (NON-OR) (12/03/2016 3:31 PM EDT) Specimen Anatomical Collection Method Collection Time Receive d Time (Source) Location / / Volume Laterality AP Specimen 12/03/2016 3:31 PM 7 6:27 EDT PM EDT Narrative [facility] - 12/03/2016 6:27 PM EDT Specimen requisition ordered. ??Separate Pathology report to follow Resulting Agency Comment Spec In Lab Halima Cordero MD PATHOLOGY/CYTOLOGY ORDERABLE S Performing Organization Address City/State/Z[place] [address] documented in this encounter Visit Diagnoses Diagnosis Dysplastic nevus of trunk Benign neoplasm of skin of trunk, except scrotum documented in this encounter Care Teams Aircraft Armorer Relationship Specialty Start Date End Date Lovely Vicente MD PCP - General 04/16/[address] [place] [address] documented as of this encounter
--- OUTSIDE RECORDS SUMMARY | 2022-04-29 08:19 | XMS_ITS | Encounter Summary ---
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 All measurements are given as AP x Transverse x Longitudinal Right Lobe: Absent Left Lobe: Absent Isthmus: Absent Central/Lateral neck: no morphologically abnormal lymph nodes. Impression: No sonographic evidence of recurrence. LUZ PRESCOTT MD Film Read[employer]echanical meter tester Section of Endocrinology [facility] Luz Prescott MD - 06/05/2015 8:21 AM [...] Diagnostic, Drum (ACCU-CHEK COMPACT TEST) Strip by [facility] [place], [place].(Non-Drug; Combo Route) route 2 times daily. Yes [...] --f/u in 1 year LUZ PRESCOTT MD Film Read[employer]echanical meter tester Section of Endocrinology [facility] documented in this encounter Miscellaneous Notes Addendum [...] MD [facility] [address], [place] [address] (Wo rk) 05/28/2022 Laboratory Appointment Lab 05/28/2022 Office Visit Cardiology Zulma Dolan MD [facility] [place] [address] Liz Poole PA [facility] [place] [address] 06/10/2022 Office Visit Dermatology Laura Scherer MD [facility] ER [address] [place], [place] [address] (Wo rk) documented as of [...] athologist Signature Thyroglobulin 0.6 <=54.9 CERNER ng/mL [facility] Comment: Interpret with caution. Tg levels [...] BR et al. J Clin Endo Metab 1999;84:4930-1561). Assay performed using the [facility] Immulite T [...] Address City/State/[place] [address] CERNER MILLENNIUM (ABNORMAL) TSH (06/05/2015 9:04 AM EST) P athologist Signature TSH 5.88 (H) 0.27 - 4.20 CERNER mcIU/mL MILLENNIUM Specimen Anatomical Collection Method Collection Time Receive d Time (Source) Location / / Volume Laterality Blood specimen 06/05/2015 9:04 AM 015 9:15 (specimen) EST AM EST Resulting Agency Comment Spec In Lab Luz Prescott MD CHEMISTRY ORDERABLES Performing Organization Address City/[facility]/[place] [address] CERNER MILLENNIUM documented in this encounter Visit Diagnoses Diagnosis 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
--- OUTSIDE RECORDS SUMMARY | 2022-04-29 08:19 | XMS_ITS | Encounter Summary ---
:1945 [place] [address] Care Team Providers Name Role Phone Lovely Vicente MD Primary Care Provider Reason for Visit Auth/Cert Specialty Diagnoses / Procedures Referred By Contact Refer red To Contact Diagnoses STEMI (ST elevation myocardial infarction) NSTEMI STEMI Procedures CARDIAC CATHETERIZATION NAYE IPI Referral ID Status Reason Start Date Expiration Date Visits Requ ested Visits Authorized [id number] 1 1 Encounter Details Date Type Department Care Team Description 07/05/2017 Surgery Milk And Cream Grader Jet Guan, CARDIAC CATHETERIZATION [facility] [place] [address] CARDIOLOGY DEPT. [phone] [place], [place] [address] (Wo rk) Social History [...] this encounter Discharge Summaries Martha Teague S, AN/SSN 2 4 OPERATOR - 07/14/2017 9:38 AM EST Inpatient [...] , @ 1:20p Patient to follow-up with Dip Painter/heart failure team in one week. An appointment will be made for you. You may call [phone] Patient to follow-up with Cardiac Surgery, Dr. Yuan Webber, in ~ 4 weeks with CXR, EKG. Inpatient Provider Contact Information: [facility] Section of Cardiac [place] [facility] [place] [phone] FAX [phone] Discharge Diagnoses (Hospital Problems) Primary Diagnoses: CAD [...] performed by Manny Mcknight MD at [facility] OR ??? PRO CABG, ARTERIAL, SINGLE N/A 07/07/2017 @CABG, USING ARTERIAL GRAFT;SINGLE ARTERIAL GRAFT (WRVU 33.75) performed by Yuan Webber MD at [facility] OR ??? PRO CABG, ARTERY-VEIN, TWO N/A 07/07/2017 @CABG, TWO VENOUS GRAFTS & ARTERIAL GRAFT (WRVU 7.93) performed by Yuan Webber MD at [facility] OR ??? PRO COLONOSCOPY, REMV LESN, SNARE 01/16/2014 COLONOSCOPY, POLYPECTOMY, REMOVAL LESION BY SNARE performed by Nohemi Jaimes MD at [facility] ENDOSCOPY ??? PRO ENDOSCOPY W/VIDEO-ASST VEIN HARVEST, CABG Right 07/07/2017 ENDOSCOPIC HARVEST VEIN(S) FOR CABG (WRVU 0.31) performed by Yuan Webber MD at [facility] OR ??? PRO THYROIDECTOMY 03/28/2013 THYROIDECTOMY, TOTAL OR COMPLETE performed by Manny Mcknight MD at [facility] OR Prior To Admission Medications Prescriptions Prior to Admission Medication Sig Dispense Refill Last Dose ??? levothyroxine (SYNTHROID) 175 mcg Tablet Take 1 tablet by mouth daily. 90 tablet 3 07/05/2017 [id number] ??? ascorbic acid, vitamin C, (VITAMIN C) [...] was taken emergently to the labor relations worker for an ongoing STEMI. An IABP was [...] not take or discontinue any prescription or fvmo-kmu-ximckvm medications without asking your doctor or pharmacist [...] Yuan Webber and/or the Cardiac Surgery Physician Profile Shaper Operator Team may be reached at . [...] Dr. Yuan Webber. You may use a [place] Track or treadmill but avoid any pulling [...] friends, go to a movie, go to nondenominational, etc. Heavy activities: No hunting, skiing, jogging, snow shoveling, snowmobiling, lawn mowing, swimming, golf or tennis until after your return appointment with the surgeon. Do not ride motorcycles, [employer] tractors or horses. Avoid the use of [...] should resume a low fat, low cholesterol, [place] Heart Association Diet/Diabetic diet. Driving: No driving [...] , @ 1:20p Patient to follow-up with Dip Painter/heart failure team in one week. Appointment will be made for you. You may call [phone] Patient to follow-up with Cardiac Surgery, Dr. Yuan Webber, in ~ 4 weeks with CXR, EKG. Cardiac Rehabilitation: Gregory Hoang was seen today regarding participation in the outpatient Phase 2 Cardiac Rehabilitation at [facility]. The patient agrees to a referral to this program. The referral will be sent at discharge and the patient should be contacted by the Program within 1- 2 weeks from discharge. ?? Future Appointments and Orders Future Appointments Provider Department Dept Phone 09/07/2017 3:00 PM LAB, THREE L Lab 3L [facility] [phone] 09/07/2017 4:00 PM Luz Prescott MD [facility]ocrinology at [facility] [phone] Future Orders Complete By Expires EKG 12 Lead [EKG1 Custom] 08/14/2017 02/13/2018 Process Instructions: Scheduling Instructions: Questions: Which DH location will this be performed?: [facility] Is a rhythm strip needed?: No If EKG Reason is Pre-op Evaluation, indicate diagnosis for surgery.: XR Chest PA & Lateral (Generic) [[id number] Custom] 08/14/2017 02/13/2018 Process Instructions: Scheduling Instructions: Questions: Where will study be performed?: [facility] Portable exam?: Reason for exam and clinical history: CABG x 3 Other pertinent information: Stat read required?: Date of injury if applicable: Requested Time: Referral to Cardiac Rehab [[id number] Custom] As directed Process Instructions: If no progress note charted, please enter Clinical details in comments. Scheduling Instructions: Questions: My question or request is: s/p CABG. Cardiac rehab at [facility] Referral to Home Health - at DISCHARGE [ZWF9478 CPT(R)] As directed Process Instructions: Scheduling Instructions: Comments: DOCUMENTATION FOR VNA SERVICES (INCLUDING THOSE PATIENTS WITH MEDICARE COVERAGE REQUIRING HOME VNA SERVICES AND/OR HOSPICE SERVICES) PATIENT'S LOCATION: Gregory Hoang [address] [place] [address] [place] [address] (home) Telephone Information: Stuntman's Name: self In discussion with the attending physician, it is certified that this patient is under their care and that they, or a Nurse Practitioner, or Physician Profile Shaper Operator who is working directly with them, [...] Mung[facility]ia ([facility] [place] [employer] in [place] PHONE: [phone] FAX: [phone] RN orders: Cardiopulmonary assessment, incisional assessment, assess vital signs, assessment of rehab progress, medication management and effectiveness, home safety evaluation. Please draw INR if indicated and send result to:Dr Vicente [phone] PT ORDERS: Continue rehab for endurance, gait stability and strength with mobility and transfers. Home safety evaluation. Home exercise program if appropriate. Start of Care Date:24-48 hours after discharge SPECIAL INSTRUCTIONS: For any follow up questions, needs, or issues please call the Cardiac Surgery Office at [phone] FOR MEDICARE ONLY: (please delete this section [...] AFTER 07/17/2017 Signed: Martha Teague APRN [facility] Section of [place]iac [place] [facility] [place] [phone] FAX [phone] Date: 07/14/2017 CC: MD Ivania Cr Betsy, PA [address] [place] [phone] documented in this encounter Discharge Instructions Discharge [...] not take or discontinue any prescription or nlpq-obr-owvodrl medications without asking your doctor or pharmacist [...] Yuan Webber and/or the Cardiac Surgery Physician Profile Shaper Operator Team may be reached at . [...] Dr. Yuan Webber. You may use a [place] Track or treadmill but avoid any pulling [...] friends, go to a movie, go to nondenominational, etc. ?? Heavy activities: No hunting, skiing, jogging, snow shoveling, snowmobiling, lawn mowing, swimming, golf or tennis until after your return appointment with the surgeon. Do not ride motorcycles, [employer]'s tractors or horses. Avoid the use [...] should resume a low fat, low cholesterol, [place] Heart Association Diet/Diabetic diet. ?? Driving: No [...] @ 1:20p ?? Patient to follow-up with Dip Painter/heart failure team in one week. An appointment has been made for you, you can call [phone] ?? Patient to follow-up with Cardiac Surgery, Dr. Yuan Webber, in ~ 4 weeks with CXR, EKG. ? Cardiac Rehabilitation: Gregory Hoang??was seen today regarding participation in the outpatient Phase 2 Cardiac Rehabilitation at [facility]. ?? The patient agrees to a referral to this program.? The referral will be sent at discharge and the patient should be contacted by the Program within 1- 2 weeks from discharge. ? Future Appointments and Orders Future Appointments Provider Department Dept Phone ?? 09/07/2017 3:00 PM LAB, THREE L Lab 3L [facility] [phone] ?? 09/07/2017 4:00 PM Luz Prescott MD Endocrinology at [facility] [phone] Future Orders Complete By Expires ?? EKG 12 Lead [EKG1 Custom] 08/14/2017 02/13/2018 ?? Process Instructions: ? Scheduling Instructions: ? Questions: ? Which location will this be performed?: [facility] ?? Is a rhythm strip needed?: No ?? If EKG Reason is Pre-op Evaluation, indicate diagnosis for surgery.: ?? XR Chest PA & Lateral (Generic) [[id number] Custom] 08/14/2017 02/13/2018 ?? Process Instructions: ? Scheduling Instructions: ? Questions: ? Where will study be performed?: [facility] ?? Portable exam?: ?? Reason for exam and clinical history: CABG x 3 ?? Other pertinent information: ?? Stat read required?: ?? Date of injury if applicable: ?? Requested Time: ?? Referral to Cardiac Rehab [[id number] Custom] As directed ? Process Instructions: ?? If no progress note charted, please enter Clinical details in comments. ?? Scheduling Instructions: ? Questions: ? My question or request is: s/p CABG. Cardiac rehab at [facility] ? Arrangements for VNA/home care: [...] RN - 07/14/2017 2:34 PM EST The patient/brewery representative has been provided a list of Home Health Agencies/DME vendors which serve their preferred geographic area. A letter describing our affiliations was reviewed with them and theywere educated about their right to choose where referrals are placed. Patient requests referral to [facility]. PHONE: [phone] FAX: [phone] Expected date of discharge: 07/14 Referral routed to the Keyboard Teacher for matching with agency/vendor and to [...] – [place] Endocrinology Diabetes Management Pager [phone] minutes of this 35 minute visit was spent with the patient in counseling on diabetes and treatment plan, reviewing all glucose and insulin data as well as relevant laboratory results with the patient, and coordination of care on the inpatient unit including nursing and primary team. Zulma Andres RN - 07/14/2017 10:30 AM EST The patient/brewery representative has been provided a list of Home Health Agencies/DME vendors which serve their preferred geographic area. A letter describing our affiliations was reviewed with them and theywere educated about their right to choose where referrals are placed. Patient requests referral to : Yasmani Munguia ([facility] [place] [facility]-is in [place]) PHONE: [phone] FAX: [phone]. Expected date of discharge: 07/14/17 Referral routed to the Keyboard Teacher for matching with agency/vendor and to [...] – [place] Endocrinology Diabetes Management Pager [phone] 15 minutes of this 25 minute visit [...] of infiltration/extravasation Discussed plan of care with TURNING SANDER TENDER and RN. Elevate exrtemity and apply [...] measuring tape and identifier in the photo) SOLUTION DESIGN AND ANALYSIS MANAGER CARING FOR THIS PATIENT WILL CONTINUE [...] measuring tape and identifier in the photo) SOLUTION DESIGN AND ANALYSIS MANAGER CARING FOR THIS PATIENT WILL CONTINUE [...] regard to both infiltrates addressed by this filing writer.All of Mr. Hoang's responses were entirely appropriate. Images of infiltrates attached here. Martha Sharp APRN - 07/13/2017 8:01 AM EST Cardiac Surgery Progress Note: ID: [id number] 72 year old male POD#6 s/p CABGx3 [...] discharge. ?? I have met with the patient/brewery representative to discuss discharge planning needs. I have provided the [facility] [place], Office of Care Management letter from the Leadership Development Manager pertaining to rehab referrals. I have also provided a letter describing our affiliations within the [facility] and educated them about their right to choose where referrals are placed. ?? I reviewed the different levels of rehab including SNF, swing, acute and LTAC with the patient/brewery representative. ?? The patient/brewery representative has been provided a list of facilities within their preferred geographic area. ?? I have requested that the patient/brewery representative provide at least three choices for referral. ?? The patient/brewery representative have requested referrals to: ?? 1. . ?? 2. [facility] ?? 3. More to be entered ?? Expected date of discharge: 07/14 Note routed to Keyboard Teacher who will communicate referrals to facilities [...] hours. If BG remains greater than 240, [id number] units (no more than three times) & [...] hours. If BG remains greater than 240, wzeqaw75 units (no more than three times) & call for new basal insulin orders. ??If less than 240 after two hours, give no insulin and resume prior schedule. Will continue to follow Katerin Azul APRN [facility] [place] Endocrinology Diabetes Management Pager [phone] 20 minutes of this 35 minute visit was spent with the patient in counseling on diabetes and treatment plan, reviewing all glucose and insulin data as well as relevant laboratory results with the patient, and coordination of care on the inpatient unit including nursing and primary team. Makayla Stevenson APRN - 07/12/2017 9:52 AM EST Cardiac Surgery Progress Note: ID: [id number] 72 year old male POD#5 s/p CABGx3 [...] pertinent for HTN, CHF, CAD, nSTEMI, IDDM, MAIRA VICTORIA, BPH, thyroid carcinoma s/p thyroidectomy melanoma [...] 07/11/2017 7:18 PM EST Patient arrived from [facility]. VSS. MSI dressing pulled off [...] hours. If BG remains greater than 240, hexzsp85 units (no more than three times) & [...] AM EST Cardiac Surgery Progress Note: ID: [id number] 72 year old male POD#4 s/p CABGx3 [...] hours. If BG remains greater than 240, ofxqqk65 units (no more than three times) & [...] AM EST Cardiac Surgery Progress Note: ID: [id number] 72 year old male POD#3 s/p CABGx3 [...] Gas) No results found for: PHART, PO2ART, PMN5FWC Assessment/Plan: 72 year old male POD#3 s/p [...] Mami Thao - 07/09/2017 6:29 PM EST Home Health Care Social Worker Encounter Note Patient Name: Gregory Hoang : [id number] MR#: [id number] Admit Date: 07/05/2017 4:20 PM Hospital Day 4 days Narrative: Patient was sitting in chair, hugging heart pillow, opened his eyes, nodding to come into room Assessment: Patient was sleepy. Intervention and Outcome: Introduced director of pupil personnel program services and patient reached his hand out in appreciation. Follow-up: Home Health Care Social Worker remains available for support. Time in [...] AM EST Cardiac Surgery Progress Note: ID: [id number] 72 year old male POD#2 s/p CABGx3 [...] DW Attending Surgeon on rounds. Signed: STEPHANIE qIbal [facility] Section of [...] when IABP d/c'ed. Gretchen Carolina, PT Pager [phone] Maddison Cee PA - 07/08/2017 11:27 AM EST Cardiac Surgery Progress Note: ID: [id number] 72 year old male POD#1 s/p CABGx3 [...] in place in R femoral. No hematoma. EKG MANAGER- Intact Psych- Anxious Skin- Dry, no [...] intact. IABP in place in R femoral. EKG MANAGER- Intact Psych- Anxious Skin- Dry, no [...] note for details. DAPHNE SHAHID MD Pager [phone] ClarisaJet lynn MD - 07/05/2017 6:48 PM EST Preliminary Cardiac Catheterization Procedure Note: Procedure(s) performed: Left heart cath, IABP insertion Access: Right RATE REVIEWER-->8fr IABP A time-out was conducted prior to [...] gtt maintained. Pt transferred to labor relations worker. documented in this encounter H&P Notes Daphne Shahid MD - 07/05/2017 6:08 PM EST CARDIOLOGY HISTORY & PHYSICAL EXAM Date of Admission: 07/05/2017 ( Hospital Day 0 days ) Responsible Attending: Daphne Shahid MD PCP: Lovely Vicente MD PCP#: [phone] Patient Active Problem List Diagnosis Code ??? [...] load with heparin drip and transferred to [facility]. While there, continued sob, question of chest pain. Stat TTE showing WMA diffusely and EF around 20%. No significant valvular disease. Taken to the labor relations worker urgently for ongoing STEMI. [facility] Labs: INR 1.0 WBC 5.88 [...] - s/p lasix in the labor relations worker, redose to aim net neg 1L by [...] Medicine, PGY-2 Cardiology S1, Team Pager # [phone] CARDIOLOGY ATTENDING NOTE Patient: Gregory Hoang Date [...] amenable for PCI. DAPHNE SHAHID MD Pager [phone] documented in this encounter Miscellaneous Notes Consult Note - Daphne Shahid MD - 07/14/2017 11:46 AM EST Heart Failure Service Inpatient Consult Note Gregory Hoang Date of : 1945 Age: 72 y.o. Today's date: 07/14/17 PCP: Lovely Vicente MD LEAD BASED PAINT TECHNICIAN: None [facility] [place] [facility] [place] [facility] [place] Reason for Consult: Dr. [...] performed by Manny Mcknight MD at [facility] OR ??? PRO CABG, ARTERIAL, SINGLE N/A 07/07/2017 @CABG, USING ARTERIAL GRAFT;SINGLE ARTERIAL GRAFT (WRVU 33.75) performed by Yuan Webber MD at [facility] OR ??? PRO CABG, ARTERY-VEIN, TWO N/A 07/07/2017 @CABG, TWO VENOUS GRAFTS & ARTERIAL GRAFT (WRVU 7.93) performed by Yuan Webber MD at [facility] OR ??? PRO COLONOSCOPY, REMV LESN, SNARE 01/16/2014 COLONOSCOPY, POLYPECTOMY, REMOVAL LESION BY SNARE performed by Nohemi Jaimes MD at [facility] ENDOSCOPY ??? PRO ENDOSCOPY W/VIDEO-ASST VEIN HARVEST, CABG Right 07/07/2017 ENDOSCOPIC HARVEST VEIN(S) FOR CABG (WRVU 0.31) performed by Yuan Webber MD at [facility] OR ??? PRO THYROIDECTOMY 03/28/2013 THYROIDECTOMY, TOTAL OR COMPLETE performed by Manny Mcknight MD at [facility] OR Outpt Meds: Current Outpatient Prescriptions [...] following studies: EKG 07/14/17: NSR 75 bpm, DOG DAYCARE PROVIDER anterior infarct, LAD CXR 07/11/17: FINDINGS: Sternotomy wires. The patient has been extubated, left chest tube removed, and [place]-Suzi catheter removed since the 07/07/2017 study. Atelectasis [...] was discussed with Kono. Jaden Kelley MD Storage Facility Rental Clerk Pager [phone] CARDIOLOGY ATTENDING NOTE Patient: Gregory Hoang Date [...] heart failure clinic. DAPHNE SHAHID MD Pager [phone] Plan of Care - Alden Chavarria PTA [...] home with assist Alden Chavarria PTA Pager: [phone] Inpatient Physical Therapy Problem: Acute Rehab Services [...] sit/sit to supine -- Bed Mobility Goal, [place] Level supervision required -- Bed Mobility Goal, [...] - 3 days -- Gait Training Goal, [place] Level supervision required -- Gait Training Goal, [...] days -- Transfer Training Goal, Activity Type rqx-uh-dpwja/qeifu-kq-nyd;duk-tc-dsjiv/bgokw-dl-qzg;toilet -- Transfer Train Goal, [place] Level supervision required -- Transfer Training Goal, [...] keeping present for 2 days per family. Wetlands Technician noted of frustrations, house keeping sent to room. Patient offered showered twice, refused. at bedside, frustrated that shower not complete, informed that patient had refused several times. requesting to see PIPE SMOKING MACHINE OFFBEARER, paged sent to Martha, will come to bedside (middle of consult). not willing to wait, Martha notified that family had gone home. Encouraged to come for morning rounds a t 8am. Diabetes team at bedside - insulin adjustments made. Call cabello in reach. Continue to monitor. PLAN MOVING FORWARD: Ambulate, dressing changes BID, Please change drsg at 4am per Martha PIPE SMOKING MACHINE OFFBEARER request. INDIVIDUALIZED FALL PREVENTION INTERVENTIONS: Patient-specific fall [...] levels on the lower side, 60ml of [place] juice given after a FS of 80. [...] monitoring required during toileting and ADLs]: RN TURNING SANDER TENDER Surveillance [continuous indirect monitoring]: Barrett Monitor [...] Anticipated Discharge Disposition: home with assist Pager: [phone] CLARISSA SEGAL, PT 07/12/2017 Physical Therapy Rehabilitation [...] to sit/sit to supine Bed Mobility Goal, [place] Level supervision required Bed Mobility Goal, Additional Goal adheres to psternal precautions for transfer Goal: Gait Training Goal Stand Alone Therapy Goal Outcome: Ongoing (Interventions Implemented as Appropriate) 07/12/17 1225 Gait Training Goal Gait Training Goal, Date Established 07/12/17 Gait Training Goal, Time to Achieve 2 - 3 days Gait Training Goal, [place] Level supervision required Gait Training Goal, Assist [...] 3 days Transfer Training Goal, Activity Type dvz-as-oyidm/gziyq-cg-pvn;nyp-tv-cbxvn/fpqtl-vv-swg;toilet Transfer Train Goal, [place] Level supervision required Transfer Training Goal, Additional Goal adheres to sternal precautions during transfer Consult Note - Octavia Vaughn RN - 07/12/2017 10:50 AM EST [facility] [place] CARDIAC REHABILITATION Gregory Hoang was seen today regarding participation in the outpatient Phase 2 Cardiac Rehabilitation at [facility]. The patient agrees to a [...] IV site, amio to other piv and LOG ROLLER at bedside to help assess, IV removed. [...] staff, he stood and marched in place. [employer] weak, wanting to sit back down. [...] Health/Prescription Coverage: Primary Insurance: MEDICARE Secondary Insurance: [employer] [place] Prescription Coverage: yes Preferred Pharmacy: [facility] [place] Other: none Primary Care Provider: Lovely Vicente MD [phone] Patient/Caregiver Goals of Treatment:live and get my [...] transition of care planning. ERLIN Weiss Pager: [phone] Consult Note - Katerin Azul RN - [...] patient W/E coverage, Dr. Jeane Tatum, pager [phone] Katerin Azul APRN Endocrinology Diabetes Management Pager [phone] Plan of Care - Stephanie Godoy RN [...] Operative Note Patient Name: Gregory Hoang : [id number] MR#: [id number] Case Date: 07/07/2017 Surgeon: Surgeon(s) and Role: * Yuan Webber MD - Primary * Michael Darke PA - Physician Profile Shaper Operator * Linda Flores PA - Physician Profile Shaper Operator Preoperative diagnosis: 3VD Postoperative diagnosis: CAD, [...] Operative Note Patient Name: Gregory Hoang : [id number] MR#: [id number] Case Date: 07/07/2017 Surgeon: Surgeon(s) and Role: * Yuan Webber MD - Primary * Michael Drake PA - Physician Profile Shaper Operator * Linda Flores PA - Physician Profile Shaper Operator Preoperative diagnosis: 3VD Postoperative diagnosis: CAD, severe LV dysfunction, severely dilated LV, post Bypass EF 30% Procedure(s) (LRB): @CABG, USING ARTERIAL GRAFT;SINGLE ARTERIAL GRAFT (WRVU 33.75) (N/A) @CABG, TWO VENOUS GRAFTS & ARTERIAL GRAFT (WRVU 7.93) (N/A) ENDOSCOPIC HARVEST VEIN(S) FOR CABG (WRVU 0.31) (Right) CABG x 3 THOMPOSN->LAD, Seq SVG->OM1->D1 Anesthesia: General/Perez Findings: , diffusely [...] (reference Cardiac: ACS (Acute Coronary Syndrome) (Adult) [facility]). 07/07/17621 Cardiac: ACS (Acute Coronary Syndrome) Problems [...] [employer] [facility] S1 (Pager [phone]) Plan of Care - Emelia Ibarra RN [...] at [facility] ENDOSCOPY ??? PRO THYROIDECTOMY 03/28/2013 THYROIDECTOMY, TOTAL OR COMPLETE performed by Manny Mcknight MD at [facility] MAIN OR Social History: Social History [...] with other involved physicians Yuan Webber MD [phone] Med Student Progress Note - Katty Hahn [...] - s/p lasix in the labor relations worker, was net -1.5L - s/p plavix load, [...] insulin drip - hold metformin - f/u [facility] ?? #Home Meds - continue levothyroxine 175mcg - CPAP at night ?? # Routine - DVT PPx: heparin drip - Diet: Healthy heart diet, NPO at midnight for CABG tomorrow - Code Status: FULL - Dispo: CVCC Katty Hahn, M3 [facility] S1 (Pager [phone]) Plan of Care - Stephanie Godoy RN - 07/06/2017 5:00 AM EST Problem: Patient Care Overview Goal: Plan of Care Review 07/06/17 0229 Coping/Psychosocial Plan Of Care Reviewed With patient;family [...] without difficulty. Lasix given in labor relations worker, 1.4 L out at this time. Pt [...] Zulma Dolan MD [facility] [place] [address] (Wo rk) 05/28/2022 Laboratory Appointment Lab 05/28/2022 Office Visit Cardiology Zulma Dolan MD [facility] [place] [address] Liz Poole PA [facility] [place] [address] 06/10/2022 Office Visit Dermatology Laura Scherer MD [facility] [address] [place], [place] [address] (Wo rk) Scheduled Orders Name [...] procedure are i n the results section. CERAMICS MACHINE OPERATOR SCAN 07/15/2017 12:00 Res ults [...] [facility]) AM EST procedure are i n the [...] 07/07/2017 5:15 Results f or this ([facility] [...] 07/06/2017 7:40 Results f or this ([facility] [...] 07/06/2017 2:10 Results f or this ([facility]) PM EST procedure are i n the [...] 07/06/2017 2:20 Results f or this ([facility] [...] [facility]) PM EST procedure are i n the [...] 2017 EXAMINATION: XR CHEST PA AND LATERAL ([employer]) CLINICAL HISTORY: CABG x 3 TECHNIQUE: PA [...] Teague APRN IMG DX ORDERABLES SCAN DOC: CERAMICS MACHINE OPERATOR (07/15/2017 12:00 AM EST) Narrative [...] Signature POC Glucose 186 65 - 199 [facility] mg/dL [facility] Comment: Supplemental ranges: <140 mg/dL before meals <180 mg/dL all other times of the day Specimen Anatomical Collection Method Collection Time Receive d Time (Source) Location / / Volume Laterality Blood specimen 07/14/2017 11:56 7 (specimen) AM EST 11:56 AM EST Yuan Webber MD POINT OF CARE TEST ORDERABLE S Performing Organization Address City/State/ZIP [place] [address] POCT Glucose (07/14/2017 7:52 AM EST) athologist Signature POC Glucose 126 65 - 199 [facility] mg/dL [facility] Comment: Supplemental ranges: <140 mg/dL before meals <180 mg/dL all other times of the day Specimen Anatomical Collection Method Collection Time Receive d Time (Source) Location / / Volume Laterality Blood specimen 07/14/2017 7:52 AM 017 7:52 (specimen) EST AM EST Yuan Webber MD POINT OF CARE TEST ORDERABLE S Performing Organization Address City/[facility]/[place] [address] (ABNORMAL) Prothrombin Time (07/14/2017 4:46 AM EST) athologist Signature PT 26.4 (H) 11.8 - 14.0 [facility] LABORATORY INR 2.4 (H) 0.9 - [...] APRN HEMATOLOGY ORDERABLES Performing Organization Address City/[facility] Code [facility] [place] [address] Potassium (07/14/2017 4:46 AM EST) athologist Signature Potassium 4.3 3.5 - 5.0 [facility] mmol/L [facility] Comment: Please note: ??Patients [...] Address City/State/ZIP Code Phon e Number [address] POCT Glucose (07/14/2017 4:34 AM EST) athologist Signature POC Glucose 115 65 - 199 [place] mg/dL [facility] Comment: Supplemental ranges: <140 mg/dL before meals <180 mg/dL all other times of the day Specimen Anatomical Collection Method Collection Time Receive d Time (Source) Location / / Volume Laterality Blood specimen 07/14/2017 4:34 AM 017 4:34 (specimen) EST AM EST Yuan Webber MD POINT OF CARE TEST ORDERABLE S Performing Organization Address City/[facility]/ZIP Code Phon e Number [address] POCT Glucose (07/13/2017 11:33 PM EST) athologist Signature POC Glucose 132 65 - 199 [place] mg/dL [facility] Comment: Supplemental ranges: <140 mg/dL before meals <180 mg/dL all other times of the day Specimen Anatomical Collection Method Collection Time Receive d Time (Source) Location / / Volume Laterality Blood specimen 07/13/2017 11:33 7 (specimen) PM EST 11:33 PM EST Yuan Webber MD POINT OF CARE TEST ORDERABLE S Performing Organization Address City/[facility]/ZIP Code Ph[place] [address] POCT Glucose (07/13/2017 9:25 PM EST) athologist Signature POC Glucose 121 65 - 199 [place] mg/dL [facility] Comment: Supplemental ranges: <140 mg/dL before meals <180 mg/dL all other times of the day Specimen Anatomical Collection Method Collection Time Receive d Time (Source) Location / / Volume Laterality Blood specimen 07/13/2017 9:25 PM 017 9:25 (specimen) EST PM EST Yuan Webber MD POINT OF CARE TEST ORDERABLE S Performing Organization Address City/State/ZIP Code Phon e Number [address] POCT Glucose (07/13/2017 4:55 PM EST) athologist Signature POC Glucose 79 65 - 199 [facility] R[place] mg/dL [facility] Comment: Supplemental ranges: <140 mg/dL before meals <180 mg/dL all other times of the day Specimen Anatomical Collection Method Collection Time Receive d Time (Source) Location / / Volume Laterality Blood specimen 07/13/2017 4:55 PM 017 4:55 (specimen) EST PM EST Yuan Webber MD POINT OF CARE TEST ORDERABLE S Performing Organization Address City/State/ZIP Code Phon e Number [address] POCT Glucose (07/13/2017 11:16 AM EST) athologist Signature POC Glucose 163 65 - 199 [facility] mg/dL [facility] Comment: Supplemental ranges: <140 mg/dL before meals <180 mg/dL all other times of the day Specimen Anatomical Collection Method Collection Time Receive d Time (Source) Location / / Volume Laterality Blood specimen 07/13/2017 11:16 7 (specimen) AM EST 11:16 AM EST Yuan Webber MD POINT OF CARE TEST ORDERABLE S Performing Organization Address City/State/ZIP Code Phon e Number [address] POCT Glucose (07/13/2017 8:07 AM EST) athologist Signature POC Glucose 96 65 - 199 [place] mg/dL [facility] Comment: Supplemental ranges: <140 mg/dL before meals <180 mg/dL all other times of the day Specimen Anatomical Collection Method Collection Time Receive d Time (Source) Location / / Volume Laterality Blood specimen 07/13/2017 8:07 AM 017 8:07 (specimen) EST AM EST Yuan Webber MD POINT OF CARE TEST ORDERABLE S Performing Organization Address City/State/ZIP Code Phon e Number [address] (ABNORMAL) Prothrombin Time (07/13/2017 4:26 AM EST) P athologist Signature PT 20.8 (H) 11.8 - 14.0 [facility] LABORATORY INR 1.8 (H) 0.9 - [...] Organization Address City/State/[place] [address] (ABNORMAL) Basic Metabolic Panel (non-fasting) (07/13/2017 4:26 AM EST) athologist Signature Glucose Lvl 95 65 - 199 [facility] mg/dL [facility] Comment: Diabetes: [...] [facility] Estimated GFR 60 >=60 [facility] Comment: The reported eGFR should be multiplied b y 1.2 for patients. The MDRD is not an appropriate measure o f renal function for patients with body mass extremes or in patients with acute kidney failure. http://Socialite/DHnkdep http://Socialite/DHMCnkf Specimen Anatomical Collection Method Collection Time Receive d Time (Source) Location / / Volume Laterality Blood specimen 07/13/2017 4:26 AM 017 4:46 (specimen) EST AM EST Resulting Agency Comment Spec In Lab Makayla Wilson APRN CHEMISTRY ORDERABLES Performing Organization Address City/State/ZIP Code Phon e Number [address] POCT Glucose (07/13/2017 3:52 AM EST) athologist Signature POC Glucose 93 65 - 199 [facility] mg/dL [facility] Comment: Supplemental ranges: <140 mg/dL before meals <180 mg/dL all other times of the day Specimen Anatomical Collection Method Collection Time Receive d Time (Source) Location / / Volume Laterality Blood specimen 07/13/2017 3:52 AM 017 3:52 (specimen) EST AM EST Yuan Webber MD POINT OF CARE TEST ORDERABLE S Performing Organization Address City/State/ZIP Code Phon e Number [address] POCT Glucose (07/13/2017 12:21 AM EST) athologist Signature POC Glucose 80 65 - 199 [facility]dL [facility] Comment: Supplemental ranges: <140 mg/dL before meals <180 mg/dL all other times of the day Specimen Anatomical Collection Method Collection Time Receive d Time (Source) Location / / Volume Laterality Blood specimen 07/13/2017 12:21 7 (specimen) AM EST 12:21 AM EST Yuan Webber MD POINT OF CARE TEST ORDERABLE S Performing Organization Address City/State/ZIP Code Phon e Number [address] POCT Glucose (07/12/2017 8:22 PM EST) athologist Signature POC Glucose 119 65 - 199 [place] mg/dL [facility] Comment: Supplemental ranges: <140 mg/dL before meals <180 mg/dL all other times of the day Specimen Anatomical Collection Method Collection Time Receive d Time (Source) Location / / Volume Laterality Blood specimen 07/12/2017 8:22 PM 017 8:22 (specimen) EST PM EST Yuan Webber MD POINT OF CARE TEST ORDERABLE S Performing Organization Address City/[facility]/ZIP Code Phon e Number [address] POCT Glucose (07/12/2017 4:02 PM EST) athologist Signature POC Glucose 114 65 - 199 [place] mg/dL [facility] Comment: Supplemental ranges: <140 mg/dL before meals <180 mg/dL all other times of the day Specimen Anatomical Collection Method Collection Time Receive d Time (Source) Location / / Volume Laterality Blood specimen 07/12/2017 4:02 PM 017 4:02 (specimen) EST PM EST Yuan Webber MD POINT OF CARE TEST ORDERABLE S Performing Organization Address City/State/ZIP Code Phon e Number [address] POCT Glucose (07/12/2017 11:28 AM EST) P athologist Signature POC Glucose 164 65 - 199 [place] mg/dL [facility] Comment: Supplemental ranges: <140 mg/dL before meals <180 mg/dL all other times of the day Specimen Anatomical Collection Method Collection Time Receive d Time (Source) Location / / Volume Laterality Blood specimen 07/12/2017 11:28 7 (specimen) AM EST 11:28 AM EST Yuan Webber MD POINT OF CARE TEST ORDERABLE S Performing Organization Address City/State/ZIP Code Phon e Number [address] POCT Glucose (07/12/2017 7:34 AM EST) athologist Signature POC Glucose 109 65 - 199 [facility]/dL [facility] Comment: Supplemental ranges: <140 mg/dL before meals <180 mg/dL all other times of the day Specimen Anatomical Collection Method Collection Time Receive d Time (Source) Location / / Volume Laterality Blood specimen 07/12/2017 7:34 AM 017 7:34 (specimen) EST AM EST Yuan Webber MD POINT OF CARE TEST ORDERABLE S Performing Organization Address City/State/[place] [address] (ABNORMAL) Basic Metabolic Panel (non-fasting) (07/12/2017 4:11 AM EST) athologist Signature Glucose Lvl 92 65 - 199 [facility] Comment: Diabetes: [...] or in patients with acute kidney failure. http://Socialite/DHnkdep http://Socialite/DHMCnkf Specimen Anatomical Collection Method Collection Time Receive d Time (Source) Location / / Volume Laterality Blood specimen 07/12/2017 4:11 AM 017 8:57 (specimen) EST AM EST Resulting Agency Comment Spec In Lab Makayla Erwin STACIE CHEMISTRY ORDERABLES Performing Organization Address [facility] [place] [address] (ABNORMAL) Prothrombin Time (07/12/2017 4:11 AM EST) P athologist Signature PT 15.4 (H) 11.8 - 14.0 [facility] LABORATORY INR 1.2 (H) 0.9 - [...] HEMATOLOGY ORDERABLES Performing Organization Address [facility] Phon e Number [address] Potassium (07/12/2017 4:11 AM EST) P athologist Signature Potassium 3.8 3.5 - 5.0 [facility] mmol/L [facility] Comment: Please note: ??Patients [...] CHEMISTRY ORDERABLES Performing Organization Address City/[facility]/ZIP [facility] Phon e Number [address] POCT Glucose (07/12/2017 4:10 AM EST) athologist Signature POC Glucose 90 65 - 199 [facility] Comment: Supplemental ranges: <140 mg/dL before meals <180 mg/dL all other times of the day Specimen Anatomical Collection Method Collection Time Receive d Time (Source) Location / / Volume Laterality Blood specimen 07/12/2017 4:10 AM 017 4:10 (specimen) EST AM EST Yuan Webber MD POINT OF CARE TEST ORDERABLE S Performing Organization Address City/[facility]/ZIP Code Phon e Number [address] POCT Glucose (07/11/2017 11:57 PM EST) athologist Signature POC Glucose 98 65 - 199 [facility]/dL [facility] Comment: Supplemental ranges: <140 mg/dL before meals <180 mg/dL all other times of the day Specimen Anatomical Collection Method Collection Time Receive d Time (Source) Location / / Volume Laterality Blood specimen 07/11/2017 11:57 7 (specimen) PM EST 11:57 PM EST Yuan Webber MD POINT OF CARE TEST ORDERABLE S Performing Organization Address City/[facility]/ZIP Code Phon e Number [address] POCT Glucose (07/11/2017 8:32 PM EST) P athologist Signature POC Glucose 146 65 - 199 [place] mg/dL [facility] Comment: Supplemental ranges: <140 mg/dL before meals <180 mg/dL all other times of the day Specimen Anatomical Collection Method Collection Time Receive d Time (Source) Location / / Volume Laterality Blood specimen 07/11/2017 8:32 PM 017 8:32 (specimen) EST PM EST Yuan Webber MD POINT OF CARE TEST ORDERABLE S Performing Organization Address City/State/ZIP [place] [address] XR Chest PA & [...] e xtubated, left chest tube removed, and Cayuga-Suzi catheter removed since the study. Atelectasis at [...] e xtubated, left chest tube removed, and [place]-Suzi catheter removed since the study. Atelectasis at [...] (H) 65 - 199 [place] mg/dL [facility] Comment: Supplemental ranges: <140 mg/dL before meals <180 mg/dL all other times of the day Specimen Anatomical Collection Method Collection Time Receive d Time (Source) Location / / Volume Laterality Blood specimen 07/11/2017 4:05 PM 017 4:05 (specimen) EST PM EST Yuan Webber MD POINT OF CARE TEST ORDERABLE S Performing Organization Address City/[facility]/ZIP Code Phon e Number [address] POCT Glucose (07/11/2017 11:55 AM EST) athologist Signature POC Glucose 176 65 - 199 [place] mg/dL [facility] Comment: Supplemental ranges: <140 mg/dL before meals <180 mg/dL all other times of the day Specimen Anatomical Collection Method Collection Time Receive d Time (Source) Location / / Volume Laterality Blood specimen 07/11/2017 11:55 7 (specimen) AM EST 11:55 AM EST Yuan Webber MD POINT OF CARE TEST ORDERABLE S Performing Organization Address City/State/[place] [address] POCT Glucose (07/11/2017 7:53 AM EST) athologist Signature POC Glucose 189 65 - 199 [place] mg/dL [facility] Comment: Supplemental ranges: <140 mg/dL before meals <180 mg/dL all other times of the day Specimen Anatomical Collection Method Collection Time Receive d Time (Source) Location / / Volume Laterality Blood specimen 07/11/2017 7:53 AM 017 7:53 (specimen) EST AM EST Yuan Webber MD POINT OF CARE TEST ORDERABLE S Performing Organization Address City/[facility]/ZIP Code Phon e Number [address] POCT Glucose (07/11/2017 4:22 AM EST) athologist Signature POC Glucose 151 65 - 199 [place] mg/dL [facility] Comment: Supplemental ranges: <140 mg/dL before meals <180 mg/dL all other times of the day Specimen Anatomical Collection Method Collection Time Receive d Time (Source) Location / / Volume Laterality Blood specimen 07/11/2017 4:22 AM 017 4:22 (specimen) EST AM EST Yuan Webber MD POINT OF CARE TEST ORDERABLE S Performing Organization Address [facility]/[place] [address] Potassium (07/11/2017 2:20 AM EST) athologist Signature Potassium 4.5 3.5 - 5.0 [facility]/L [facility] Comment: Please note: ??Patients [...] Address City/[facility]/ZIP Code Phon e Number [address] POCT Glucose (07/11/2017 12:17 AM EST) athologist Signature POC Glucose 162 65 - 199 [place] mg/dL [facility] Comment: Supplemental ranges: <140 mg/dL before meals <180 mg/dL all other times of the day Specimen Anatomical Collection Method Collection Time Receive d Time (Source) Location / / Volume Laterality Blood specimen 07/11/2017 12:17 7 (specimen) AM EST 12:17 AM EST Yuan Webber MD POINT OF CARE TEST ORDERABLE S Performing Organization Address City/State/ZIP Code Phon e Number [address] POCT Glucose (07/10/2017 8:47 PM EST) athologist Signature POC Glucose 191 65 - 199 [place] mg/dL [facility] Comment: Supplemental ranges: <140 mg/dL before meals <180 mg/dL all other times of the day Specimen Anatomical Collection Method Collection Time Receive d Time (Source) Location / / Volume Laterality Blood specimen 07/10/2017 8:47 PM 017 8:47 (specimen) EST PM EST Yuan Webber MD POINT OF CARE TEST ORDERABLE S Performing Organization Address City/State/[place] [address] POCT Glucose (07/10/2017 4:06 PM EST) athologist Signature POC Glucose 131 65 - 199 [place] mg/dL [facility] Comment: Supplemental ranges: <140 mg/dL before meals <180 mg/dL all other times of the day Specimen Anatomical Collection Method Collection Time Receive d Time (Source) Location / / Volume Laterality Blood specimen 07/10/2017 4:06 PM 017 4:06 (specimen) EST PM EST Yuan Webber MD POINT OF CARE TEST ORDERABLE S Performing Organization Address City/State/ZIP Code Phon e Number [address] POCT Glucose (07/10/2017 3:08 PM EST) athologist Signature POC Glucose 151 65 - 199 [facility] mg/dL [facility] Comment: Supplemental ranges: <140 mg/dL before meals <180 mg/dL all other times of the day Specimen Anatomical Collection Method Collection Time Receive d Time (Source) Location / / Volume Laterality Blood specimen 07/10/2017 3:08 PM 017 3:08 (specimen) EST PM EST Yuan Webber MD POINT OF CARE TEST ORDERABLE S Performing Organization Address City/State/ZIP Code Phon e Number [address] POCT Glucose (07/10/2017 2:25 PM EST) athologist Signature POC Glucose 146 65 - 199 [place] mg/dL [facility] Comment: Supplemental ranges: <140 mg/dL before meals <180 mg/dL all other times of the day Specimen Anatomical Collection Method Collection Time Receive d Time (Source) Location / / Volume Laterality Blood specimen 07/10/2017 2:25 PM 017 2:25 (specimen) EST PM EST Yuan Webber MD POINT OF CARE TEST ORDERABLE S Performing Organization Address City/State/[place] [address] POCT Glucose (07/10/2017 1:23 PM EST) athologist Signature POC Glucose 166 65 - 199 [place] mg/dL [facility] Comment: Supplemental ranges: <140 mg/dL before meals <180 mg/dL all other times of the day Specimen Anatomical Collection Method Collection Time Receive d Time (Source) Location / / Volume Laterality Blood specimen 07/10/2017 1:23 PM 017 1:23 (specimen) EST PM EST Yuan Webber MD POINT OF CARE TEST ORDERABLE S Performing Organization Address City/State/[place] [address] POCT Glucose (07/10/2017 11:52 AM EST) athologist Signature POC Glucose 157 65 - 199 [facility] mg/dL [facility] Comment: Supplemental ranges: <140 mg/dL before meals <180 mg/dL all other times of the day Specimen Anatomical Collection Method Collection Time Receive d Time (Source) Location / / Volume Laterality Blood specimen 07/10/2017 11:52 7 (specimen) AM EST 11:52 AM EST Yuan Webber MD POINT OF CARE TEST ORDERABLE S Performing Organization Address City/State/ZIP Code Phon e Number [address] POCT Glucose (07/10/2017 11:01 AM EST) P athologist Signature POC Glucose 158 65 - 199 [place] mg/dL [facility] Comment: Supplemental ranges: <140 mg/dL before meals <180 mg/dL all other times of the day Specimen Anatomical Collection Method Collection Time Receive d Time (Source) Location / / Volume Laterality Blood specimen 07/10/2017 11:01 7 (specimen) AM EST 11:01 AM EST Yuan Webber MD POINT OF CARE TEST ORDERABLE S Performing Organization Address City/[facility]/ZIP Code Phon e Number [address] POCT Glucose (07/10/2017 9:54 AM EST) P athologist Signature POC Glucose 160 65 - 199 [place] mg/dL [facility] Comment: Supplemental ranges: <140 mg/dL before meals <180 mg/dL all other times of the day Specimen Anatomical Collection Method Collection Time Receive d Time (Source) Location / / Volume Laterality Blood specimen 07/10/2017 9:54 AM 017 9:54 (specimen) EST AM EST Yuan Webber MD POINT OF CARE TEST ORDERABLE S Performing Organization Address City/State/ZIP Code Phon e Number [address] POCT Glucose (07/10/2017 8:58 AM EST) P athologist Signature POC Glucose 183 65 - 199 [place] mg/dL [facility] Comment: Supplemental ranges: <140 mg/dL before meals <180 mg/dL all other times of the day Specimen Anatomical Collection Method Collection Time Receive d Time (Source) Location / / Volume Laterality Blood specimen 07/10/2017 8:58 AM 017 8:58 (specimen) EST AM EST Yuan Webber MD POINT OF CARE TEST ORDERABLE S Performing Organization Address City/State/ZIP Code Phon e Number [address] POCT Glucose (07/10/2017 8:01 AM EST) P athologist Signature POC Glucose 173 65 - 199 [place] mg/dL [facility] Comment: Supplemental ranges: <140 mg/dL before meals <180 mg/dL all other times of the day Specimen Anatomical Collection Method Collection Time Receive d Time (Source) Location / / Volume Laterality Blood specimen 07/10/2017 8:01 AM 017 8:01 (specimen) EST AM EST Yuan Webber MD POINT OF CARE TEST ORDERABLE S Performing Organization Address City/State/ZIP Code Phon e Number [address] POCT Glucose (07/10/2017 7:05 AM EST) athologist Signature POC Glucose 166 65 - 199 [place] mg/dL [facility] Comment: Supplemental ranges: <140 mg/dL before meals <180 mg/dL all other times of the day Specimen Anatomical Collection Method Collection Time Receive d Time (Source) Location / / Volume Laterality Blood specimen 07/10/2017 7:05 AM 017 7:05 (specimen) EST AM EST Yuan Webber MD POINT OF CARE TEST ORDERABLE S Performing Organization Address City/State/[place] [address] POCT Glucose (07/10/2017 6:00 AM EST) athologist Signature POC Glucose 162 65 - 199 [place] mg/dL [facility] Comment: Supplemental ranges: <140 mg/dL before meals <180 mg/dL all other times of the day Specimen Anatomical Collection Method Collection Time Receive d Time (Source) Location / / Volume Laterality Blood specimen 07/10/2017 6:00 AM 017 6:00 (specimen) EST AM EST Yuan Webber MD POINT OF CARE TEST ORDERABLE S Performing Organization Address City/State/ZIP Code Phon e Number [place] [phone] [facility] [address] (ABNORMAL) Differential, Automated (07/10/2017 4:28 AM EST) [facility] Method Time Signature Neutrophils % 87.9 % [facility] LABORATORY Neutr Abs (ANC) 10.70 (H) 1.70 - [facility] 6.10 [facility] x10(3)/[facility] L LABORATORY Lymphocytes % 3.9 % [facility] LABORATORY Lymphocytes Abs 0.5 (L) 0.9 - 3.2 [facility] x10(3)/[facility] LABORATORY Monocytes % 7.0 % [facility] LABORATORY Monocyte Abs 0.8 0.3 - 0.9 [facility] x10(3)/[facility] LABORATORY Eosinophils % 0.3 % [facility] LABORATORY Eosinophils Abs 0.0 0.0 - 0.4 [facility] x10(3)/[facility] LABORATORY Basophils % 0.2 % [facility] LABORATORY Basophils Abs 0.0 0.0 - 0.1 [facility] x10(3)/[facility] LABORATORY Immature Gran % 0.70 % [...] Address City/[facility]/ZIP [place] [address] (ABNORMAL) Hemogram (07/10/2017 4:28 AM EST) Analysis Performed At Patho logist Time Signature WBC 12.2 (H) 4.0 - 9.5 [facility] x10(3)/[facility] LABORATORY RBC 3.31 (L) 4.58 - [place] 5.54 [facility] x10(6)/[facility] LABORATORY Hemoglobin 9.8 (L) 13.7 - [facility] 16.5 gm/dL [facility] LABORATORY Hematocrit 30.0 (L) 40.5 - [facility] 48.5 % [facility] LABORATORY MCV 90.6 82.9 - [facility] 93.1 [facility] LABORATORY MCH 29.6 27.5 - [facility] 32.1 pg [facility] LABORATORY MCHC 32.7 32.0 - [facility] 35.7 gm/dL [facility] LABORATORY Platelets 135 (L) 145 - 357 [facility] x10(3)/[facility] LABORATORY RDWSD 50.8 (H) 36.0 - [facility] 45.0 [facility] LABORATORY RDWCV 15.4 (H) 11.4 - [facility] 13.8 % [facility] LABORATORY MPV 10.0 7.6 - 12.9 [facility] LABORATORY nRBC % Auto 0.0 % [facility] LABORATORY nRBC Abs Auto 0.000 0.000 - [facility] 0.000 [facility] x10(3)/[facility] LABORATORY Specimen Anatomical Collection Method Collection Time Receive d Time (Source) Location / / Volume Laterality Blood specimen 07/10/2017 4:28 AM 017 4:36 (specimen) EST AM EST Resulting Agency Comment Spec In Lab Yuan Webber MD HEMATOLOGY ORDERABLES Performing Organization Address City/State/ZIP Code Phon e Number [address] (ABNORMAL) Basic Metabolic Panel (non-fasting) (07/10/2017 4:28 AM EST) P athologist Signature Glucose Lvl 178 65 - 199 [facility] mg/dL [facility] LABORATORY Comment: Diabetes: [...] [facility] Estimated GFR 60 >=60 [facility] LABORATORY Comment: The reported eGFR should be multiplied b y 1.2 for patients. The MDRD is not an appropriate measure o f renal function for patients with body mass extremes or in patients with acute kidney failure. http://Breadtrip.SyncSum/DHnkdep http://Socialite/DHMCnkf Specimen Anatomical Collection Method Collection Time Receive d Time (Source) Location / / Volume Laterality Blood specimen 07/10/2017 4:28 AM 017 4:36 (specimen) EST AM EST Resulting Agency Comment Spec In Lab Yuan Webber MD CHEMISTRY ORDERABLES Performing Organization Address City/State/ZIP [place] [address] POCT Glucose (07/10/2017 4:26 AM EST) P athologist Signature POC Glucose 176 65 - 199 [facility] mg/dL [facility] LABORATORY Comment: Supplemental ranges: <140 mg/dL before meals <180 mg/dL all other times of the day Specimen Anatomical Collection Method Collection Time Receive d Time (Source) Location / / Volume Laterality Blood specimen 07/10/2017 4:26 AM 017 4:26 (specimen) EST AM EST Yuan Webber MD POINT OF CARE TEST ORDERABLE S Performing Organization Address City/State/ZIP Code Phon e Number [address] (ABNORMAL) POCT Glucose (07/10/2017 3:06 AM EST) P athologist Signature POC Glucose 204 (H) 65 - 199 [facility] mg/dL [facility] LABORATORY Comment: Supplemental ranges: <140 mg/dL before meals <180 mg/dL all other times of the day Specimen Anatomical Collection Method Collection Time Receive d Time (Source) Location / / Volume Laterality Blood specimen 07/10/2017 3:06 AM 017 3:06 (specimen) EST AM EST Yuan Webber MD POINT OF CARE TEST ORDERABLE S Performing Organization Address City/[facility]/[place] [address] (ABNORMAL) POCT Glucose (07/10/2017 2:10 AM EST) P athologist Signature POC Glucose 203 (H) 65 - 199 [facility] mg/dL [facility] LABORATORY Comment: Supplemental ranges: <140 mg/dL before meals <180 mg/dL all other times of the day Specimen Anatomical Collection Method Collection Time Receive d Time (Source) Location / / Volume Laterality Blood specimen 07/10/2017 2:10 AM 017 2:10 (specimen) EST AM EST Yuan Webber MD POINT OF CARE TEST ORDERABLE S Performing Organization Address City/State/ZIP Code Phon e Number [address] POCT Glucose (07/10/2017 1:09 AM EST) P athologist Signature POC Glucose 196 65 - 199 [facility] mg/dL [facility] LABORATORY Comment: Supplemental ranges: <140 mg/dL before meals <180 mg/dL all other times of the day Specimen Anatomical Collection Method Collection Time Receive d Time (Source) Location / / Volume Laterality Blood specimen 07/10/2017 1:09 AM 2 017 1:09 (specimen) EST AM EST Yuan Webber MD POINT OF CARE TEST ORDERABLE S Performing Organization Address City/State/ZIP Code Phon e Number [address] POCT Glucose (07/10/2017 12:10 AM EST) P athologist Signature POC Glucose 173 65 - 199 [place] mg/dL [facility] LABORATORY Comment: Supplemental ranges: <140 mg/dL before meals <180 mg/dL all other times of the day Specimen Anatomical Collection Method Collection Time Receive d Time (Source) Location / / Volume Laterality Blood specimen 07/10/2017 12:10 7 (specimen) AM EST 12:10 AM EST Yuan Webber MD POINT OF CARE TEST ORDERABLE S Performing Organization Address City/State/[place] [address] POCT Glucose (07/09/2017 11:01 PM EST) P athologist Signature POC Glucose 140 65 - 199 [place] mg/dL [facility] LABORATORY Comment: Supplemental ranges: <140 mg/dL before meals <180 mg/dL all other times of the day Specimen Anatomical Collection Method Collection Time Receive d Time (Source) Location / / Volume Laterality Blood specimen 07/09/2017 11:01 7 (specimen) PM EST 11:01 PM EST Yuan Webber MD POINT OF CARE TEST ORDERABLE S Performing Organization Address City/State/[place] [address] POCT Glucose (07/09/2017 10:05 PM EST) P athologist Signature POC Glucose 144 65 - 199 [facility] mg/dL [facility] LABORATORY Comment: Supplemental ranges: <140 mg/dL before meals <180 mg/dL all other times of the day Specimen Anatomical Collection Method Collection Time Receive d Time (Source) Location / / Volume Laterality Blood specimen 07/09/2017 10:05 7 (specimen) PM EST 10:05 PM EST Yuan Webber MD POINT OF CARE TEST ORDERABLE S Performing Organization Address City/State/ZIP Code Phon e Number [address] POCT Glucose (07/09/2017 9:31 PM EST) athologist Signature POC Glucose 121 65 - 199 [place] mg/dL [facility] LABORATORY Comment: Supplemental ranges: <140 mg/dL before meals <180 mg/dL all other times of the day Specimen Anatomical Collection Method Collection Time Receive d Time (Source) Location / / Volume Laterality Blood specimen 07/09/2017 9:31 PM 017 9:31 (specimen) EST PM EST Yuan Webber MD POINT OF CARE TEST ORDERABLE S Performing Organization Address City/[facility]/ZIP Code Phon e Number [address] POCT Glucose (07/09/2017 9:03 PM EST) athologist Signature POC Glucose 98 65 - 199 [place] mg/dL [facility] LABORATORY Comment: Supplemental ranges: <140 mg/dL before meals <180 mg/dL all other times of the day Specimen Anatomical Collection Method Collection Time Receive d Time (Source) Location / / Volume Laterality Blood specimen 07/09/2017 9:03 PM 017 9:03 (specimen) EST PM EST Yuan Webber MD POINT OF CARE TEST ORDERABLE S Performing Organization Address City/[facility]/ZIP Code Phon e Number [address] POCT Glucose (07/09/2017 8:09 PM EST) athologist Signature POC Glucose 117 65 - 199 [place] mg/dL [facility] LABOR[facility]ORY Comment: Supplemental ranges: <140 mg/dL before meals <180 mg/dL all other times of the day Specimen Anatomical Collection Method Collection Time Receive d Time (Source) Location / / Volume Laterality Blood specimen 07/09/2017 8:09 PM 017 8:09 (specimen) EST PM EST Yuan Webber MD POINT OF CARE TEST ORDERABLE S Performing Organization Address City/State/ZIP Code Phon e Number [address] POCT Glucose (07/09/2017 5:40 PM EST) athologist Signature POC Glucose 155 65 - 199 [place] mg/dL [facility] LABORATORY Comment: Supplemental ranges: <140 mg/dL before meals <180 mg/dL all other times of the day Specimen Anatomical Collection Method Collection Time Receive d Time (Source) Location / / Volume Laterality Blood specimen 07/09/2017 5:40 PM 017 5:40 (specimen) EST PM EST Yuan Webber MD POINT OF CARE TEST ORDERABLE S Performing Organization Address City/State/ZIP Code Phon e Number [address] POCT Glucose (07/09/2017 4:24 PM EST) athologist Signature POC Glucose 164 65 - 199 [place] mg/dL [facility] LABOR[facility]ORY Comment: Supplemental ranges: <140 mg/dL before meals <180 mg/dL all other times of the day Specimen Anatomical Collection Method Collection Time Receive d Time (Source) Location / / Volume Laterality Blood specimen 07/09/2017 4:24 PM 017 4:24 (specimen) EST PM EST Yuan Webber MD POINT OF CARE TEST ORDERABLE S Performing Organization Address City/State/ZIP Code Phon e Number [address] POCT Glucose (07/09/2017 3:19 PM EST) athologist Signature POC Glucose 166 65 - 199 [facility] mg/dL [facility] LABORATORY Comment: Supplemental ranges: <140 mg/dL before meals <180 mg/dL all other times of the day Specimen Anatomical Collection Method Collection Time Receive d Time (Source) Location / / Volume Laterality Blood specimen 07/09/2017 3:19 PM 017 3:19 (specimen) EST PM EST Yuan Webber MD POINT OF CARE TEST ORDERABLE S Performing Organization Address City/State/[place] [address] POCT Glucose (07/09/2017 2:26 PM EST) athologist Signature POC Glucose 179 65 - 199 [place] mg/dL [facility] LABORATORY Comment: Supplemental ranges: <140 mg/dL before meals <180 mg/dL all other times of the day Specimen Anatomical Collection Method Collection Time Receive d Time (Source) Location / / Volume Laterality Blood specimen 07/09/2017 2:26 PM 017 2:26 (specimen) EST PM EST Yuan Webber MD POINT OF CARE TEST ORDERABLE S Performing Organization Address City/[facility]/[place] [address] (ABNORMAL) POCT Glucose (07/09/2017 1:29 PM EST) athologist Signature POC Glucose 210 (H) 65 - 199 [place] mg/dL [facility] LABORATORY Comment: Supplemental ranges: <140 mg/dL before meals <180 mg/dL all other times of the day Specimen Anatomical Collection Method Collection Time Receive d Time (Source) Location / / Volume Laterality Blood specimen 07/09/2017 1:29 PM 017 1:29 (specimen) EST PM EST Yuan Webber MD POINT OF CARE TEST ORDERABLE S Performing Organization Address City/[facility]/[place] [address] POCT Glucose (07/09/2017 12:20 PM EST) athologist Signature POC Glucose 172 65 - 199 [place] mg/dL [facility] LABOR[facility]ORY Comment: Supplemental ranges: <140 mg/dL before meals <180 mg/dL all other times of the day Specimen Anatomical Collection Method Collection Time Receive d Time (Source) Location / / Volume Laterality Blood specimen 07/09/2017 12:20 7 (specimen) PM EST 12:20 PM EST Yuan Webber MD POINT OF CARE TEST ORDERABLE S Performing Organization Address City/State/ZIP Code Phon e Number [address] POCT Glucose (07/09/2017 11:24 AM EST) P athologist Signature POC Glucose 156 65 - 199 [place] mg/dL [facility] LABOR[facility]ORY Comment: Supplemental ranges: <140 mg/dL before meals <180 mg/dL all other times of the day Specimen Anatomical Collection Method Collection Time Receive d Time (Source) Location / / Volume Laterality Blood specimen 07/09/2017 11:24 7 (specimen) AM EST 11:24 AM EST Yuan Webber MD POINT OF CARE TEST ORDERABLE S Performing Organization Address City/State/ZIP Code Phon e Number [address] POCT Glucose (07/09/2017 11:11 AM EST) P athologist Signature POC Glucose 172 65 - 199 [place] mg/dL [facility] LABOR[facility] Comment: Supplemental ranges: <140 mg/dL before meals <180 mg/dL all other times of the day Specimen Anatomical Collection Method Collection Time Receive d Time (Source) Location / / Volume Laterality Blood specimen 07/09/2017 11:11 7 (specimen) AM EST 11:11 AM EST Yuan Webber MD POINT OF CARE TEST ORDERABLE S Performing Organization Address City/State/ZIP [place] [address] [facility] [address] POCT Glucose (07/09/2017 10:08 AM EST) P athologist Signature POC Glucose 176 65 - 199 [place] mg/dL [facility] LABOR[facility]ORY Comment: Supplemental ranges: <140 mg/dL before meals <180 mg/dL all other times of the day Specimen Anatomical Collection Method Collection Time Receive d Time (Source) Location / / Volume Laterality Blood specimen 07/09/2017 10:08 7 (specimen) AM EST 10:08 AM EST Yuan Webber MD POINT OF CARE TEST ORDERABLE S Performing Organization Address City/State/ZIP Code Phon [place] [facility] [place] [address] POCT Glucose (07/09/2017 8:02 AM EST) P athologist Signature POC Glucose 178 65 - 199 [facility] mg/dL [facility] LABOR[facility]ORY Comment: Supplemental ranges: <140 mg/dL before meals <180 mg/dL all other times of the day Specimen Anatomical Collection Method Collection Time Receive d Time (Source) Location / / Volume Laterality Blood specimen 07/09/2017 8:02 AM 017 8:02 (specimen) EST AM EST Yuan Webber MD POINT OF CARE TEST ORDERABLE S Performing Organization Address City/State/[place] [address] (ABNORMAL) BLOOD GAS 2 ARTERIAL (07/09/2017 5:37 AM EST) Analysis Performed At Patho logist Time Signature pH Art 7.36 7.35 - [facility] 7.45 [facility] LABORATORY pCO2 Art 38 35 - 45 [facility] LABORATORY pO2 Art 79 (L) 85 - 104 [facility] LABORATORY HCO3 Art 20.9 20.0 - [facility] 26.0 [facility] mmol/L [facility] LABOR[facility] BE Art -4.6 (L) -3.0 - 3.0 [facility] mmol/L [facility] LABORATORY Hgb Blood Gas 10.5 (L) 13.7 - [facility] 16.5 gm/dL [facility] LABORATORY O2HB Art 93.8 (L) 94.0 - [facility] 97.0 % [facility] LABORATORY COHB Art 0.3 % [facility] LAB[facility] FIO2 Art 40 % [facility] LABORATORY PF Ratio Art 198 [facility] LABORATORY Specimen Anatomical Collection Method Collection Time Receive d Time (Source) Location / / Volume Laterality Blood specimen 07/09/2017 5:37 AM 017 5:37 (specimen) EST AM EST Yuan Webber MD CHEMISTRY ORDERABLES Performing Organization Address City/[facility]/[place] [address] POCT Glucose (07/09/2017 3:27 AM EST) P athologist Signature POC Glucose 192 65 - 199 [facility] mg/dL [facility] LABOR[facility]ORY Comment: Supplemental ranges: <140 mg/dL before meals <180 mg/dL all other times of the day Specimen Anatomical Collection Method Collection Time Receive d Time (Source) Location / / Volume Laterality Blood specimen 07/09/2017 3:27 AM 017 3:27 (specimen) EST AM EST Yuan Webber MD POINT OF CARE TEST ORDERABLE S Performing Organization Address City/[facility]/[place] [address] (ABNORMAL) Basic Metabolic Panel (non-fasting) (07/09/2017 2:30 AM EST) P athologist Signature Glucose Lvl 179 65 - 199 [facility] mg/dL [facility] LABOR[facility]ORY Comment: Diabetes: [...] or in patients with acute kidney failure. http://Socialite/DHnkdep http://Socialite/DHMCnkf Specimen Anatomical Collection Method Collection Time Receive d Time (Source) Location / / Volume Laterality Blood specimen Venous Draw / 07/09/2017 2:30 AM 2016 2:42 (specimen) Unknown EST AM EST Resulting Agency Comment Spec In Lab Yuan Webber MD CHEMISTRY ORDERABLES Performing Organization Address City/State/ZIP [place] [address] (ABNORMAL) Potassium (07/09/2017 2:30 AM EST) P athologist Signature Potassium 5.1 (H) 3.5 - 5.0 [facility] mmol/L [facility] LABORATORY Comment: Please note: ??Patients [...] Organization Address City/State/ZIP [place] [address] (ABNORMAL) Hemogram (07/09/2017 2:30 AM EST) Analysis Performed At Patho logist Time Signature WBC 12.5 (H) 4.0 - 9.5 [facility] x10(3)/[facility] LABORATORY RBC 3.38 (L) 4.58 - [facility] 5.54 [facility] x10(6)/[facility] LABORATORY Hemoglobin 10.1 (L) 13.7 - [facility] 16.5 gm/dL [facility] LAB[facility]ORY Hematocrit 30.3 (L) 40.5 - [facility] 48.5 % [facility] LABORATORY MCV 89.6 82.9 - [facility] 93.1 [facility] LABORATORY MCH 29.9 27.5 - [place] 32.1 pg [facility] LABORATORY MCHC 33.3 32.0 - [facility] 35.7 gm/dL [facility] LABORATORY Platelets 127 (L) 145 - 357 [facility] x10(3)/[facility] LABORATORY RDWSD 49.3 (H) 36.0 - [place] 45.0 [facility] LABORATORY RDWCV 15.2 (H) 11.4 - [facility] 13.8 % [facility] LABORATORY MPV 9.9 7.6 - 12.9 [facility] LABORATORY nRBC % Auto 0.0 % [facility] LABORATORY nRBC Abs Auto 0.000 0.000 - [place] 0.000 [facility] x10(3)/[facility] LABORATORY Specimen Anatomical Collection Method Collection Time Receive d Time (Source) Location / / Volume Laterality Blood specimen 07/09/2017 2:30 AM 017 2:41 (specimen) EST AM EST Resulting Agency Comment Spec In Lab Yuan Webber MD HEMATOLOGY ORDERABLES Performing Organization Address City/[facility]/ZIP Code Phon e Number [address] POCT Glucose (07/09/2017 2:10 AM EST) P athologist Signature POC Glucose 169 65 - 199 [place]HA[place] mg/dL [facility] LABOR[facility]ORY Comment: Supplemental ranges: <140 mg/dL before meals <180 mg/dL all other times of the day Specimen Anatomical Collection Method Collection Time Receive d Time (Source) Location / / Volume Laterality Blood specimen 07/09/2017 2:10 AM 017 2:10 (specimen) EST AM EST Yuan Webber MD POINT OF CARE TEST ORDERABLE S Performing Organization Address City/[facility]/[place] [address] POCT Glucose (07/09/2017 1:01 AM EST) P athologist Signature POC Glucose 173 65 - 199 [place]HA[place] mg/dL [facility] LABOR[facility]ORY Comment: Supplemental ranges: <140 mg/dL before meals <180 mg/dL all other times of the day Specimen Anatomical Collection Method Collection Time Receive d Time (Source) Location / / Volume Laterality Blood specimen 07/09/2017 1:01 AM 017 1:01 (specimen) EST AM EST Yuan Webber MD POINT OF CARE TEST ORDERABLE S Performing Organization Address City/[facility]/ZIP Code Phon e Number [address] Blood culture (07/09/2017 12:40 AM EST) [facility] Method Time Signature Blood Culture No growth [place]AREAL[place] at 5 days. [facility] LABORATORY Specimen Anatomical Collection Method Collection Time Receive d Time (Source) Location / / Volume Laterality Blood specimen STRUCTURE OF RIGHT 07/09/2017 12:40 3:58 (specimen) UPPER LIMB / AM EST AM EST Unknown Resulting Agency Comment Spec In Lab Yuan Webber MD MICROBIOLOGY - BLOOD ORDERAB LES Performing Organization Address City/State/[place] [address] Blood culture (07/09/2017 12:30 AM EST) [facility] Fixed - Parking Tickets Method Time Signature Blood Culture No growth KATALINA DAVIS at 5 days. [facility] LABORATORY Specimen Anatomical Collection Method Collection Time Receive d Time (Source) Location / / Volume Laterality Blood specimen STRUCTURE OF LEFT 07/09/2017 12:30 1211/2016 3:59 (specimen) UPPER LIMB / AM EST AM EST Unknown Resulting Agency Comment Spec In Lab Yuan Webber MD MICROBIOLOGY - BLOOD ORDERAB LES Performing Organization Address City/[facility]/[place] [address] (ABNORMAL) Urinalysis Microscopic Exam (07/09/2017 12:05 AM EST) Analysis Performed At Patho logist Time Signature RBC UA 32 (H) 0 - 3 /HPF [facility] LABORATORY WBC UA 5 (H) 0 - 3 /HPF [facility] LABORATORY Squam Epith UA <1 <=4 /HPF [facility] LABORATORY Hyaline Cast 17 (H) 0 - 2 /LPF [facility] LABORATORY Gran Cast UA 1 (H) <=0 /LPF [facility] LABORATORY Uric Ac Bianca Rare (A) None /HPF [facility] LABORATORY Specimen (Source) Anatomical Collection Method Collection Time Re ceived Time Location / / Volume Laterality Urine specimen 07/09/2017 12:05 07/09/ 7 obtained via AM EST 12:39 AM EST indwelling urinary catheter (specimen) Resulting Agency Comment Spec In Lab Yuan Webber MD URINE ORDERABLES Performing Organization Address City/State/[place] [address] (ABNORMAL) Urinalysis with reflex Culture (07/09/2017 12:05 AM EST) [facility] Fixed - Parking Tickets Method Time Signature Glucose UA Negative Negative [place] DAVIS mg/dL [facility]OR[facility] Protein UA 30 (A) Negative [facility] Bilirubin UA Negative Negative [facility] Comment: Clinical correlation required [facility] Leukocytes UA Negative Negative [facility] LABORATORY Appearance UA Hazy (A) Clear [facility] LABORATORY Spec Eugene UA 1.025 1.002 - 1.030 [facility] LABORATORY Color UA Yellow Yellow [facility] LABORATORY Culture Reflexed No [facility] LABORATORY Specimen (Source) Anatomical Collection Method Collection Time Re ceived Time Location / / Volume Laterality Urine specimen 07/09/2017 12:05 7 obtained via AM EST 12:39 AM EST indwelling urinary catheter (specimen) Resulting Agency Comment Spec In Lab Yuan Webber MD URINE ORDERABLES Performing Organization Address City/[facility]/ZIP [place] [address] POCT Glucose (07/08/2017 11:01 PM EST) P athologist Signature POC Glucose 191 65 - 199 [facility] [facility] Comment: Supplemental ranges: <140 mg/dL before meals <180 mg/dL all other times of the day Specimen Anatomical Collection Method Collection Time Receive d Time (Source) Location / / Volume Laterality Blood specimen 07/08/2017 11:01 7 (specimen) PM EST 11:01 PM EST Yuan Webber MD POINT OF CARE TEST ORDERABLE S Performing Organization Address City/State/ZIP Code Phon [place] [facility] [place] [address] POCT Glucose (07/08/2017 10:04 PM EST) athologist Signature POC Glucose 198 65 - 199 [facility] Comment: Supplemental ranges: <140 mg/dL before meals <180 mg/dL all other times of the day Specimen Anatomical Collection Method Collection Time Receive d Time (Source) Location / / Volume Laterality Blood specimen 07/08/2017 10:04 7 (specimen) PM EST 10:04 PM EST Yuan Webber MD POINT OF CARE TEST ORDERABLE S Performing Organization Address City/State/ZIP Code Phon e Number [address] Prepare Albumin 5% in [...] Address City/State/ZIP Code Phon e Number [address] POCT Glucose (07/08/2017 8:28 PM EST) athologist Signature POC Glucose 195 65 - 199 [place] RYAN mg/dL [facility] Comment: Supplemental ranges: <140 mg/dL before meals <180 mg/dL all other times of the day Specimen Anatomical Collection Method Collection Time Receive d Time (Source) Location / / Volume Laterality Blood specimen 07/08/2017 8:28 PM 017 8:28 (specimen) EST PM EST Yuan Webber MD POINT OF CARE TEST ORDERABLE S Performing Organization Address City/State/[place] [address] (ABNORMAL) POCT Glucose (07/08/2017 7:13 PM EST) P athologist Signature POC Glucose 220 (H) 65 - 199 [facility]dL [facility] Comment: Supplemental ranges: <140 mg/dL before meals <180 mg/dL all other times of the day Specimen Anatomical Collection Method Collection Time Receive d Time (Source) Location / / Volume Laterality Blood specimen 07/08/2017 7:13 PM 017 7:13 (specimen) EST PM EST Yuan Webber MD POINT OF CARE TEST ORDERABLE S Performing Organization Address City/State/ZIP Code Phon e Number [address] POCT Glucose (07/08/2017 5:04 PM EST) athologist Signature POC Glucose 147 65 - 199 [facility] Comment: Supplemental ranges: <140 mg/dL before meals <180 mg/dL all other times of the day Specimen Anatomical Collection Method Collection Time Receive d Time (Source) Location / / Volume Laterality Blood specimen 07/08/2017 5:04 PM 017 5:04 (specimen) EST PM EST Yuan Webber MD POINT OF CARE TEST ORDERABLE S Performing Organization Address City/State/[place] [address] (ABNORMAL) BLOOD GAS 2 ARTERIAL (07/08/2017 4:13 PM EST) Analysis Performed At Patho logist Time Signature pH Art 7.38 7.35 - [facility] 7.45 [facility] pCO2 Art 36 35 - 45 [facility] LABORATORY pO2 Art 91 85 - 104 [facility] LABORATORY HCO3 Art 20.9 20.0 - [facility] 26.0 [facility] mmol/L [facility] LABORATORY BE Art -4.2 (L) -3.0 - 3.0 [facility] mmol/L [facility] Hgb Blood Gas 11.7 (L) 13.7 - [facility] 16.5 gm/dL [facility] O2HB Art 95.1 94.0 - [facility] 97.0 % [facility] COHB Art 0.6 % [facility] FIO2 Art 40 % [facility] LABORATORY PF Ratio Art 228 [facility] LABORATORY Specimen Anatomical Collection Method Collection Time Receive d Time (Source) Location / / Volume Laterality Blood specimen 07/08/2017 4:13 PM 017 4:13 (specimen) EST PM EST Yuan Webber MD CHEMISTRY ORDERABLES Performing Organization Address City/State/ZIP [place] [address] POCT Glucose (07/08/2017 4:01 PM EST) P athologist Signature POC Glucose 148 65 - 199 [facility] mg/dL [facility] Comment: Supplemental ranges: <140 mg/dL before meals <180 mg/dL all other times of the day Specimen Anatomical Collection Method Collection Time Receive d Time (Source) Location / / Volume Laterality Blood specimen 07/08/2017 4:01 PM 017 4:01 (specimen) EST PM EST Yuan Webber MD POINT OF CARE TEST ORDERABLE S Performing Organization Address City/State/ZIP Code Phon e Number [address] POCT Glucose (07/08/2017 3:21 PM EST) athologist Signature POC Glucose 118 65 - 199 [place] ZHAORYAN mg/dL [facility] Comment: Supplemental ranges: <140 mg/dL before meals <180 mg/dL all other times of the day Specimen Anatomical Collection Method Collection Time Receive d Time (Source) Location / / Volume Laterality Blood specimen 07/08/2017 3:21 PM 017 3:21 (specimen) EST PM EST Yuan Webber MD POINT OF CARE TEST ORDERABLE S Performing Organization Address City/State/ZIP Code Phon e Number [address] POCT Glucose (07/08/2017 2:01 PM EST) athologist Signature POC Glucose 129 65 - 199 [place] ZHAORYAN mg/dL [facility] Comment: Supplemental ranges: <140 mg/dL before meals <180 mg/dL all other times of the day Specimen Anatomical Collection Method Collection Time Receive d Time (Source) Location / / Volume Laterality Blood specimen 07/08/2017 2:01 PM 017 2:01 (specimen) EST PM EST Yuan Webber MD POINT OF CARE TEST ORDERABLE S Performing Organization Address City/State/[place] [address] POCT Glucose (07/08/2017 11:53 AM EST) athologist Signature POC Glucose 156 65 - 199 K[place]ALINA ZHAORYAN mg/dL [facility] Comment: Supplemental ranges: <140 mg/dL before meals <180 mg/dL all other times of the day Specimen Anatomical Collection Method Collection Time Receive d Time (Source) Location / / Volume Laterality Blood specimen 07/08/2017 11:53 7 (specimen) AM EST 11:53 AM EST Yuan Webber MD POINT OF CARE TEST ORDERABLE S Performing Organization Address City/State/ZIP Code Phon e Number [address] POCT Glucose (07/08/2017 11:04 AM EST) athologist Signature POC Glucose 181 65 - 199 [facility]dL [facility] Comment: Supplemental ranges: <140 mg/dL before meals <180 mg/dL all other times of the day Specimen Anatomical Collection Method Collection Time Receive d Time (Source) Location / / Volume Laterality Blood specimen 07/08/2017 11:04 7 (specimen) AM EST 11:04 AM EST Yuan Webber MD POINT OF CARE TEST ORDERABLE S Performing Organization Address City/[facility]/[place] [address] (ABNORMAL) POCT Glucose (07/08/2017 9:24 AM EST) athologist Signature POC Glucose 203 (H) 65 - 199 [facility] Comment: Supplemental ranges: <140 mg/dL before meals <180 mg/dL all other times of the day Specimen Anatomical Collection Method Collection Time Receive d Time (Source) Location / / Volume Laterality Blood specimen 07/08/2017 9:24 AM 017 9:24 (specimen) EST AM EST Yuan Webber MD POINT OF CARE TEST ORDERABLE S Performing Organization Address City/State/[place] [address] APTT (07/08/2017 8:40 AM [...] Address City/[facility]/[place] [address] (ABNORMAL) Prothrombin Time (07/08/2017 8:40 AM EST) P athologist Signature PT 15.6 (H) 11.8 - 14.0 [facility] [...] Address City/[facility]/[place] [address] (ABNORMAL) POCT Glucose (07/08/2017 7:38 AM EST) P athologist Signature POC Glucose 232 (H) 65 - 199 [facility] mg/dL [facility] Comment: Supplemental ranges: <140 mg/dL before meals <180 mg/dL all other times of the day Specimen Anatomical Collection Method Collection Time Receive d Time (Source) Location / / Volume Laterality Blood specimen 07/08/2017 7:38 AM 017 7:38 (specimen) EST AM EST Yuan Webber MD POINT OF CARE TEST ORDERABLE S Performing Organization Address City/[facility]/[place] [address] (ABNORMAL) POCT Glucose (07/08/2017 7:07 AM EST) athologist Signature POC Glucose 234 (H) 65 - 199 [facility] mg/dL [facility] Comment: Supplemental ranges: <140 mg/dL before meals <180 mg/dL all other times of the day Specimen Anatomical Collection Method Collection Time Receive d Time (Source) Location / / Volume Laterality Blood specimen 07/08/2017 7:07 AM 017 7:07 (specimen) EST AM EST Yuan Webber MD POINT OF CARE TEST ORDERABLE S Performing Organization Address City/State/[place] [address] (ABNORMAL) POCT Glucose (07/08/2017 6:04 AM EST) athologist Signature POC Glucose 225 (H) 65 - 199 [facility] mg/dL [facility] Comment: Supplemental ranges: <140 mg/dL before meals <180 mg/dL all other times of the day Specimen Anatomical Collection Method Collection Time Receive d Time (Source) Location / / Volume Laterality Blood specimen 07/08/2017 6:04 AM 017 6:04 (specimen) EST AM EST Yuan Webber MD POINT OF CARE TEST ORDERABLE S Performing Organization Address City/State/[place] [address] (ABNORMAL) POCT Glucose (07/08/2017 5:31 AM EST) athologist Signature POC Glucose 216 (H) 65 - 199 [facility]dL [facility] Comment: Supplemental ranges: <140 mg/dL before meals <180 mg/dL all other times of the day Specimen Anatomical Collection Method Collection Time Receive d Time (Source) Location / / Volume Laterality Blood specimen 07/08/2017 5:31 AM 017 5:31 (specimen) EST AM EST Yuan Webber MD POINT OF CARE TEST ORDERABLE S Performing Organization Address City/State/[place] [address] (ABNORMAL) POCT Glucose (07/08/2017 4:52 AM EST) P athologist Signature POC Glucose 257 (H) 65 - 199 [facility] mg/dL [facility] Comment: Supplemental ranges: <140 mg/dL before meals <180 mg/dL all other times of the day Specimen Anatomical Collection Method Collection Time Receive d Time (Source) Location / / Volume Laterality Blood specimen 07/08/2017 4:52 AM 017 4:52 (specimen) EST AM EST Daphne Shahid MD POINT OF CARE TEST ORDERABLE S Performing Organization Address City/State/ZIP [place] [address] (ABNORMAL) BLOOD GAS 2 ARTERIAL (07/08/2017 4:04 AM EST) Analysis Performed At Patho logist Time Signature pH Art 7.30 (L) 7.35 - [facility] 7.45 [facility] LABORATORY pCO2 Art 41 35 - 45 [facility] LABORATORY pO2 Art 83 (L) 85 - 104 [facility] LABORATORY HCO3 Art 19.6 (L) 20.0 - [facility] 26.0 [facility] mmol/[facility] LABORATORY BE Art -6.8 (L) -3.0 - 3.0 [facility] mmol/L [facility]OR[facility]ORY Hgb Blood Gas 12.2 (L) 13.7 - [facility] 16.5 gm/dL [facility] O2HB Art 93.5 (L) 94.0 - [facility] 97.0 % [facility] COHB Art 0.4 % [facility] Comment: Noted by telephone instrument supervisor. FIO2 Art 40 % [facility] LABORATORY PF Ratio Art 208 [facility] LABORATORY Specimen Anatomical Collection Method Collection Time Receive d Time (Source) Location / / Volume Laterality Blood specimen 07/08/2017 4:04 AM 017 4:04 (specimen) EST AM EST Daphne Shahid MD CHEMISTRY ORDERABLES Performing Organization Address City/[facility]/ZIP Code Phon e Number [address] Scan, Peripheral Blood (07/08/2017 [...] Address City/State/ZIP Code Phon e Number [address] (ABNORMAL) Differential, Automated (07/08/2017 4:00 AM EST) Patholo gist Method Time Signature Neutrophils % 85.4 % [facility] LABORATORY Neutr Abs (ANC) 16.07 (H) 1.70 - [facility] 6.10 [facility] x10(3)/[facility] L LABORATORY Lymphocytes % 3.5 % [facility] LABORATORY Lymphocytes Abs 0.6 (L) 0.9 - 3.2 [facility] x10(3)/[facility] LABORATORY Monocytes % 10.4 % [facility] LABORATORY Monocyte Abs 2.0 (H) 0.3 - 0.9 [facility] x10(3)/[facility] LABORATORY Eosinophils % 0.0 % [facility] LABORATORY Eosinophils Abs 0.0 0.0 - 0.4 [facility] x10(3)/[facility] LABORATORY Basophils % 0.1 % [facility] LABORATORY Basophils Abs 0.0 0.0 - 0.1 [facility] x10(3)/[facility] LABORATORY Immature Gran % 0.60 [...] Gran Abs 0.12 (H) 0.00 - 0.04 x10(3)/[facility] LABORATORY Specimen Anatomical Collection Method Collection Time Receive d Time (Source) Location / / Volume Laterality Blood specimen 07/08/2017 4:00 AM 017 4:09 (specimen) EST AM EST Resulting Agency Comment Spec In Lab Yuan Webber MD HEMATOLOGY ORDERABLES Performing Organization Address City/State/ZIP [place] [address] (ABNORMAL) Hemogram (07/08/2017 4:00 AM EST) Analysis Performed At Patho logist Time Signature WBC 18.8 (H) 4.0 - 9.5 [facility] x10(3)/[facility] LABORATORY RBC 4.00 (L) 4.58 - [facility] 5.54 [facility] x10(6)/[facility] LABORATORY Hemoglobin 11.9 (L) 13.7 - [facility] 16.5 gm/dL [facility] LABORATORY Hematocrit 35.9 (L) 40.5 - [place] DAVIS 48.5 % [facility] LABORATORY MCV 89.8 82.9 - [facility] 93.1 [facility] LABORATORY MCH 29.8 27.5 - [place] OLIVASCK 32.1 pg [facility] LABORATORY MCHC 33.1 32.0 - [place] DAVIS 35.7 gm/dL [facility] LABORATORY Platelets 232 145 - 357 [facility] x10(3)/[facility] LABORATORY RDWSD 47.6 (H) 36.0 - [place] DAVIS 45.0 [facility] LABORATORY RDWCV 14.5 (H) 11.4 - [facility] 13.8 % [facility] LABORATORY MPV 9.5 7.6 - 12.9 [facility] LABORATORY nRBC % Auto 0.0 % [facility] LABORATORY nRBC Abs Auto 0.000 0.000 [facility] 0.000 [facility] x10(3)/[facility] LABORATORY Specimen Anatomical Collection Method Collection Time Receive d Time (Source) Location / / Volume Laterality Blood specimen 07/08/2017 4:00 AM 017 4:09 (specimen) EST AM EST Resulting Agency Comment Spec In Lab Yuan Webber MD HEMATOLOGY ORDERABLES Performing Organization Address City/State/ZIP Code Phon e Number [place] [id number]OSP[address] LAB[address]ORY Drive (ABNORMAL) Electrolytes panel (07/08/2017 4:00 AM EST) P athologist Signature Sodium 139 135 - 145 [facility] mmol/L [facility] LABORATORY Potassium 4.7 3.5 - 5.0 [facility] mmol/L [facility]ORATORY Comment: result rechecked-JLK Please [...] CO2 21 (L) 22 - 31 mmol/L [facility] Anion Gap 14 5 - 15 mmol/L [place] RY[facility] LABORATORY Specimen Anatomical Collection Method Collection Time Receive d Time (Source) Location / / Volume Laterality Blood specimen 07/08/2017 4:00 AM 017 4:10 (specimen) EST AM EST Resulting Agency Comment Spec In Lab Yuan Webber MD CHEMISTRY ORDERABLES Performing Organization Address City/State/ZIP [place] [address] (ABNORMAL) Cardiac Enzymes (LEB/CGP) (07/08/2017 4:00 AM EST) P athologist Signature Troponin-T 1.88 (H) 0.00 - [facility] 0.00 ng/mL [facility] LABORATORY Comment: The 99th percentile [...] additional sample may be indicated. Reference: Third [place] Definition of Myocardial Infarction. Journal of the [place] [employer] 2012;60:1581-98 CK, Total 413 [...] Address City/State/ZIP Code Phon e Number [address] (ABNORMAL) Glucose, fasting (07/08/2017 4:00 AM EST) P athologist Signature Glucose 287 (H) 65 - 99 [facility] Fasting mg/dL [facility] LABORATORY Comment: ?Fasting* Glucose Interpretive [...] of Diabetes Mellitus, Position Statement from the [place] [employer]. ??Diabete s Care, Volume 33, Supplement 1, Jul 2009 Specimen Anatomical Collection Method Collection Time Receive d Time (Source) Location / / Volume Laterality Blood specimen 07/08/2017 4:00 AM 017 4:09 (specimen) EST AM EST Resulting Agency Comment Spec In Lab Yuan Webber MD CHEMISTRY ORDERABLES Performing Organization Address City/[facility]/[place] [address] (ABNORMAL) Creatinine (07/08/2017 4:00 AM EST) Analysis Performed At Patho logist Time Signature Creatinine 1.55 (H) 0.80 - [place] 1.50 mg/dL [facility] LABORATORY Estimated GFR 44 (L) >=60 [facility] LABORATORY Comment: The reported eGFR should be multiplied b y 1.2 for patients. The MDRD is not an appropriate measure o f renal function for patients with body mass extremes or in patients with acute kidney failure. http://Breadtrip.SyncSum/DHadelitakdep http://Breadtrip.SyncSum/DHMCnkf Specimen Anatomical Collection Method Collection Time Receive d Time (Source) Location / / Volume Laterality Blood specimen 07/08/2017 4:00 AM 017 4:09 (specimen) EST AM EST Resulting Agency Comment Spec In Lab Yuan Webber MD CHEMISTRY ORDERABLES Performing Organization Address City/[facility]/ZIP Code Phon e Number [address] BUN (07/08/2017 4:00 AM EST) P athologist Signature BUN 16 10 - 20 [place] RYAN mg/dL [facility] LABORATORY Specimen Anatomical Collection Method Collection Time Receive d Time (Source) Location / / Volume Laterality Blood specimen 07/08/2017 4:00 AM 017 4:09 (specimen) EST AM EST Resulting Agency Comment Spec In Lab Yuan Webber MD CHEMISTRY ORDERABLES Performing Organization Address City/[facility]/[place] [address] (ABNORMAL) POCT Glucose (07/08/2017 3:00 AM EST) athologist Signature POC Glucose 273 (H) 65 - 199 [facility] mg/dL [facility] Comment: Supplemental ranges: <140 mg/dL before meals <180 mg/dL all other times of the day Specimen Anatomical Collection Method Collection Time Receive d Time (Source) Location / / Volume Laterality Blood specimen 07/08/2017 3:00 AM 017 3:00 (specimen) EST AM EST Daphne Shahid MD POINT OF CARE TEST ORDERABLE S Performing Organization Address City/[facility]/ZIP Code Phon e Number [address] (ABNORMAL) POCT Glucose (07/08/2017 1:57 AM EST) P athologist Signature POC Glucose 288 (H) 65 - 199 [facility] mg/dL [facility] Comment: Supplemental ranges: <140 mg/dL before meals <180 mg/dL all other times of the day Specimen Anatomical Collection Method Collection Time Receive d Time (Source) Location / / Volume Laterality Blood specimen 07/08/2017 1:57 AM 017 1:57 (specimen) EST AM EST Dahpne Shahid MD POINT OF CARE TEST ORDERABLE S Performing Organization Address City/[facility]/[place] [address] (ABNORMAL) POCT Glucose (07/08/2017 1:01 AM EST) athologist Signature POC Glucose 315 (H) 65 - 199 [facility] mg/dL [facility] Comment: Supplemental ranges: <140 mg/dL before meals <180 mg/dL all other times of the day Specimen Anatomical Collection Method Collection Time Receive d Time (Source) Location / / Volume Laterality Blood specimen 07/08/2017 1:01 AM 017 1:01 (specimen) EST AM EST Daphne Shahid MD POINT OF CARE TEST ORDERABLE S Performing Organization Address City/[facility]/[place] [address] (ABNORMAL) BLOOD GAS 2 ARTERIAL (07/08/2017 12:09 AM EST) athologist Signature pH Art 7.26 7.35 - [facility] (Critical) 7.45 [facility] Comment: Noted by telephone instrument supervisor. pCO2 Art 41 35 - [...] [facility] COHB Art 0.2 % [facility] Comment: Noted by telephone instrument supervisor. FIO2 Art 40 % [facility] PF Ratio Art 240 [facility] LABORATORY Specimen Anatomical Collection Method Collection Time Receive d Time (Source) Location / / Volume Laterality Blood specimen Arterial Draw / 07/08/2017 12:09 2016 5:31 (specimen) Unknown AM EST AM EST Resulting Agency Comment Spec In Lab Samy Maldonado MD CHEMISTRY ORDERABLES Performing Organization Address City/State/ZIP [place] [address] (ABNORMAL) POCT Glucose (07/07/2017 10:56 PM EST) P athologist Signature POC Glucose 292 (H) 65 - 199 [facility] mg/dL [facility] Comment: Supplemental ranges: <140 mg/dL before meals <180 mg/dL all other times of the day Specimen Anatomical Collection Method Collection Time Receive d Time (Source) Location / / Volume Laterality Blood specimen 07/07/2017 10:56 7 (specimen) PM EST 10:56 PM EST Daphne T Kono MD POINT OF CARE TEST ORDERABLE S Performing Organization Address City/State/ZIP [place] [address] (ABNORMAL) BLOOD GAS 2 ARTERIAL (07/07/2017 10:04 PM EST) athologist Signature pH Art 7.22 7.35 - [facility] (Critical) 7.45 [facility] Comment: Noted by telephone instrument supervisor. pCO2 Art 42 35 - [...] [facility] COHB Art 0.7 % [facility] Comment: Noted by telephone instrument supervisor. FIO2 Art 40 % [facility] LAB[facility] PF Ratio Art 235 [facility] LABORATORY Specimen Anatomical Collection Method Collection Time Receive d Time (Source) Location / / Volume Laterality Blood specimen 07/07/2017 10:04 7 (specimen) PM EST 10:04 PM EST Daphne Shahid MD CHEMISTRY ORDERABLES Performing Organization Address City/[facility]/ZIP Code Phon e Number [address] (ABNORMAL) Hemoglobin (07/07/2017 10:00 PM EST) P athologist Signature Hemoglobin 12.8 (L) 13.7 - [facility] 16.5 gm/dL [facility] LABORATORY Specimen Anatomical Collection Method Collection Time Receive d Time (Source) Location / / Volume Laterality Blood specimen 07/07/2017 10:00 7 (specimen) PM EST 10:13 PM EST Resulting Agency Comment Spec In Lab Yuan Webber MD HEMATOLOGY ORDERABLES Performing Organization Address City/[facility]/[place] [address] (ABNORMAL) Potassium (07/07/2017 10:00 PM EST) P athologist Signature Potassium 3.4 (L) 3.5 - 5.0 [facility] mmol/L [facility] Comment: Please note: ??Patients [...] Organization Address City/State/[place] [address] (ABNORMAL) POCT Glucose (07/07/2017 8:49 PM EST) P athologist Signature POC Glucose 241 (H) 65 - 199 [facility] mg/dL [facility] Comment: Supplemental ranges: <140 mg/dL before meals <180 mg/dL all other times of the day Specimen Anatomical Collection Method Collection Time Receive d Time (Source) Location / / Volume Laterality Blood specimen 07/07/2017 8:49 PM 017 8:49 (specimen) EST PM EST Daphne Shahid MD POINT OF CARE TEST ORDERABLE S Performing Organization Address City/[facility]/[place] [address] Prepare Albumin 5% in [...] Address City/[facility]/[place] [address] EKG 12 Lead (07/07/2017 7:17 PM EST) Component Value Ref Range Test Analysis Performed Pathologis t Method Time At Signature Ventricular rate 75 BPM MUSE SYSTEM Atrial Rate 75 BPM MUSE SYSTEM P-R Interval 168 ms MUSE SYSTEM QRS Duration 104 ms MUSE SYSTEM Q-T Interval 462 ms MUSE SYSTEM QTC Calculated 515 ms MUSE SYSTEM (Bezet) Calculated P [place] 52 degrees MUSE SYSTEM Calculated R [place] -40 degrees MUSE SYSTEM Calculated T [place] 39 degrees MUSE SYSTEM INTERPRETATION Normal sinus [...] pH Art 7.21 7.35 - [facility] (Critical) 7.45 [facility] Comment: Noted by telephone instrument supervisor. pCO2 Art 50 (H) 35 [...] [facility] COHB Art 0.5 % [facility] Comment: Noted by telephone instrument supervisor. Please note: Patients with WBC [...] [facility] Comment: Noted by telephone instrument supervisor. FIO2 Art 100 % [facility] PF Ratio Art 238 [facility] Specimen Anatomical Collection Method Collection Time Receive d Time (Source) Location / / Volume Laterality Blood specimen 07/07/2017 6:57 PM 017 6:57 (specimen) EST PM EST Daphne Shahid MD CHEMISTRY ORDERABLES Performing Organization Address City/State/ZIP [place] [address] (ABNORMAL) BLOOD GAS 2 ARTERIAL (07/07/2017 5:31 PM EST) P athologist Signature pH Art 7.29 7.35 - [facility] (Critical) 7.45 [facility] Comment: Noted by telephone instrument supervisor. pCO2 Art 48 (H) 35 [...] [facility] COHB Art 0.3 % [facility] [...] Address City/[facility]/ZIP Code Phon e Number [address] Fibrinogen (07/07/2017 5:30 PM EST) P athologist Signature Fibrinogen 224 180 - 510 [facility] mg/dL [facility] Comment: Called by: JEET, [...] HEMATOLOGY ORDERABLES Performing Organization Address City/[facility]/ZIP [facility] Phon e Number [address] APTT (07/07/2017 5:30 PM [...] MD HEMATOLOGY ORDERABLES Performing Organization Address City/[facility] [place] [address] (ABNORMAL) Prothrombin Time (07/07/2017 5:30 PM EST) P athologist Signature PT 19.0 (H) 11.8 - 14.0 [facility] [...] MD HEMATOLOGY ORDERABLES Performing Organization Address City/[facility] [place] [address] (ABNORMAL) Hemogram (07/07/2017 5:30 PM EST) P athologist Signature WBC 19.6 (H) 4.0 - 9.5 [facility] x10(3)/[facility] LABORATORY RBC 3.08 (L) 4.58 - [facility] 5.54 [facility] x10(6)/[facility] LABORATORY Hemoglobin 9.2 (L) 13.7 - [facility] 16.5 gm/dL [facility] Hematocrit 28.0 (L) 40.5 - [facility] 48.5 % [facility] Comment: This result has [...] nRBC Abs Auto 0.000 0.000 - 0.000 x10(3)/[facility] LABORATORY Specimen Anatomical Collection Method Collection Time Receive d Time (Source) Location / / Volume Laterality Blood specimen 07/07/2017 5:30 PM 017 5:34 (specimen) EST PM EST Resulting Agency Comment Spec In Lab Yifan Perez MD HEMATOLOGY ORDERABLES Performing Organization Address City/State/ZIP [place] [address] Prepare Platelets, Apheresis (07/07/2017 5:00 PM EST) P athologist Signature Dispensed? Yes [facility] Specimen Anatomical Collection Method Collection Time Receive d Time (Source) Location / / Volume Laterality Blood specimen 07/07/2017 5:00 PM 017 4:58 (specimen) EST PM EST Daphne Shahid MD BLOOD BANK ORDERABLES Performing Organization Address City/State/ZIP [place] [address] Platelet count (07/07/2017 4:55 PM EST) P athologist Signature Platelets 177 145 - 357 [facility] DAV[facility] x10(3)/[facility] LABORATORY Plat Immature 1.5 0.0 - 7.4 [facility] % % [facility] Comment: Limitation of the Immature Platelet Frac tion (IPF)-May be less reliable when the platelet count is less than 36h339/u L due to statistical imprecision. The IPF [...] in a decreased state of production. References: [employer] The Clinical Value of the Immature Platelet Fraction (IPF) in Cell Recovery Document Number 10-1143 12/2010 [employer] The Role of the Imm ature [...] Organization Address City/State/ZIP [place] [address] (ABNORMAL) Hemoglobin and Hematocrit, blood (07/07/2017 4:55 PM EST) P athologist Signature Hemoglobin 9.1 (L) 13.7 - 16.5 [facility] gm/dL [facility] Comment: This result has [...] Organization Address City/State/ZIP [place] [address] (ABNORMAL) BLOOD GAS 2 ARTERIAL (07/07/2017 4:38 PM EST) Analysis Performed At Patho logist Time Signature pH Art 7.37 7.35 - [facility] 7.45 [facility] pCO2 Art 44 35 - 45 [facility] mmHg [facility] pO2 Art 322 (H) 85 - 104 [facility] LABORATORY HCO3 Art 24.9 20.0 - [facility] 26.0 [facility] mmol/L [facility] BE Art -0.4 -3.0 - 3.0 [facility] mmol/L [facility] Hgb Blood Gas 10.1 (L) 13.7 - [facility] 16.5 gm/dL [facility] O2HB Art 98.7 (H) 94.0 - [facility] 97.0 % [facility] COHB Art 0.1 % [facility] Comment: Noted by telephone instrument supervisor. Note: ??Total bilirubin higher than [...] Organization Address City/State/ZIP [place] [address] (ABNORMAL) BLOOD GAS 2 VENOUS (07/07/2017 4:06 PM EST) Analysis Performed At Patho logist Time Signature pH Cody 7.31 (L) 7.32 - [facility] 7.42 [facility] pCO2 Cody 47 41 - 51 [facility] LABORATORY pO2 Cody 53 (H) 25 - 40 [facility] LABORATORY HCO3 Cody 22.7 mmol/L [facility] BE Cody -3.7 mmol/L [facility] Hgb Blood Gas 10.2 (L) 13.7 - [facility] 16.5 gm/dL [facility] O2HB Cody 81.0 % [facility] [...] [facility] Comment: Noted by telephone instrument supervisor. Note: ??Total bilirubin higher than [...] Organization Address City/State/ZIP [place] [address] (ABNORMAL) BLOOD GAS 2 ARTERIAL (07/07/2017 4:05 PM EST) Analysis Performed At Patho logist Time Signature pH Art 7.36 7.35 - [facility] 7.45 [facility] pCO2 Art 40 35 - 45 [facility] mmHg [facility] pO2 Art 282 (H) 85 - 104 [facility] LABORATORY HCO3 Art 22.1 20.0 - [facility] 26.0 [facility] mmol/L [facility] BE Art -3.4 (L) -3.0 - 3.0 [facility] mmol/L [facility] Hgb Blood Gas 10.2 (L) 13.7 - [facility] 16.5 gm/dL [facility] O2HB Art 98.4 (H) 94.0 - [facility] 97.0 % [facility] COHB Art 0.3 % [facility] Comment: Noted by telephone instrument supervisor. Note: ??Total bilirubin higher than [...] Organization Address City/State/ZIP [place] [address] (ABNORMAL) BLOOD GAS 2 ARTERIAL (07/07/2017 2:29 PM EST) Analysis Performed At Patho logist Time Signature pH Art 7.43 7.35 - [facility] 7.45 [facility] pCO2 Art 36 35 - 45 [facility]ATORY pO2 Art 221 (H) 85 - 104 [facility] LABORATORY HCO3 Art 23.2 20.0 - [facility] 26.0 [facility] mmol/[facility] BE Art -1.2 -3.0 - 3.0 [facility] mmol/L [facility] Hgb Blood Gas 13.9 13.7 - [facility] 16.5 gm/dL [facility] O2HB Art 97.8 (H) 94.0 - [facility] 97.0 % [facility] COHB Art 1.1 % [facility] [...] Organization Address City/State/ZIP [place] [address] Prepare Coag Factors (Non-Hemophilia) (07/07/2017 1:25 PM EST) P athologist Signature Dispensed? Yes [facility] Specimen Anatomical Collection Method Collection Time Receive d Time (Source) Location / / Volume Laterality Blood specimen 07/07/2017 1:25 PM 017 1:21 (specimen) EST PM EST Daphne Shahid MD BLOOD BANK ORDERABLES Performing Organization Address City/State/ZIP Code Phon e Number [address] Prepare RBC (07/07/2017 1:10 PM EST) P athologist Signature Dispensed? Yes [facility] Specimen Anatomical Collection Method Collection Time Receive d Time (Source) Location / / Volume Laterality Blood specimen 07/07/2017 1:10 PM 017 1:05 (specimen) EST PM EST Daphne Shahid MD BLOOD BANK ORDERABLES Performing Organization Address City/State/[place] [address] POCT Glucose (07/07/2017 11:56 AM EST) P athologist Signature POC Glucose 188 65 - 199 [facility] Comment: Supplemental ranges: <140 mg/dL before meals <180 mg/dL all other times of the day Specimen Anatomical Collection Method Collection Time Receive d Time (Source) Location / / Volume Laterality Blood specimen 07/07/2017 11:56 7 (specimen) AM EST 11:56 AM EST Daphne Shahid MD POINT OF CARE TEST ORDERABLE S Performing Organization Address City/[facility]/[place] [address] POCT Glucose (07/07/2017 11:05 AM EST) P athologist Signature POC Glucose 168 65 - 199 [facility]/dL [facility] Comment: Supplemental ranges: <140 mg/dL before meals <180 mg/dL all other times of the day Specimen Anatomical Collection Method Collection Time Receive d Time (Source) Location / / Volume Laterality Blood specimen 07/07/2017 11:05 7 (specimen) AM EST 11:05 AM EST Daphne Shahid MD POINT OF CARE TEST ORDERABLE S Performing Organization Address City/State/[place] [address] POCT Glucose (07/07/2017 10:02 AM EST) athologist Signature POC Glucose 191 65 - 199 [facility]AL[facility] ZHAORYAN mg/dL [facility] Comment: Supplemental ranges: <140 mg/dL before meals <180 mg/dL all other times of the day Specimen Anatomical Collection Method Collection Time Receive d Time (Source) Location / / Volume Laterality Blood specimen 07/07/2017 10:02 7 (specimen) AM EST 10:02 AM EST Daphne Shahid MD POINT OF CARE TEST ORDERABLE S Performing Organization Address City/State/ZIP Code Phon e Number [address] POCT Glucose (07/07/2017 7:53 AM EST) athologist Signature POC Glucose 178 65 - 199 [facility] mg/dL [facility] Comment: Supplemental ranges: <140 mg/dL before meals <180 mg/dL all other times of the day Specimen Anatomical Collection Method Collection Time Receive d Time (Source) Location / / Volume Laterality Blood specimen 07/07/2017 7:53 AM 017 7:53 (specimen) EST AM EST Daphne Shahid MD POINT OF CARE TEST ORDERABLE S Performing Organization Address City/State/[place] [address] POCT Glucose (07/07/2017 7:03 AM EST) athologist Signature POC Glucose 188 65 - 199 [facility] mg/dL [facility] Comment: Supplemental ranges: <140 mg/dL before meals <180 mg/dL all other times of the day Specimen Anatomical Collection Method Collection Time Receive d Time (Source) Location / / Volume Laterality Blood specimen 07/07/2017 7:03 AM 017 7:03 (specimen) EST AM EST Daphne Shahid MD POINT OF CARE TEST ORDERABLE S Performing Organization Address City/State/[place] [address] (ABNORMAL) POCT Glucose (07/07/2017 6:17 AM EST) athologist Signature POC Glucose 207 (H) 65 - 199 [facility] mg/dL [facility] Comment: Supplemental ranges: <140 mg/dL before meals <180 mg/dL all other times of the day Specimen Anatomical Collection Method Collection Time Receive d Time (Source) Location / / Volume Laterality Blood specimen 07/07/2017 6:17 AM 017 6:17 (specimen) EST AM EST Daphne Shahid MD POINT OF CARE TEST ORDERABLE S Performing Organization Address City/State/ZIP Code Phon e Number [place] [id number] Differential, Automated (07/07/2017 5:15 AM EST) [facility] Neutrophils % 69.7 % [facility] Neutr Abs (ANC) 5.32 1.70 - [facility] 6.10 [facility] x10(3)/[facility] LABORATORY Lymphocytes % 16.3 % [facility] Lymphocytes Abs 1.2 0.9 - 3.2 [facility] x10(3)/[facility] LABORATORY Monocytes % 10.5 % [facility] Monocyte Abs 0.8 0.3 - 0.9 [facility] x10(3)[facility] LABORATORY Eosinophils % 2.5 % [facility] Eosinophils Abs 0.2 0.0 - 0.4 [facility] x10(3)/[facility]ORY Basophils % 0.7 % [facility] Basophils Abs 0.0 0.0 - 0.1 [facility] x10(3)/[facility] Immature Gran % 0.30 % [facility] [...] Gran Abs 0.02 0.00 - 0.04 x10(3)/[facility] Y [facility] Specimen Anatomical Collection Method Collection Time Receive d Time (Source) Location / / Volume Laterality Blood specimen 07/07/2017 5:15 AM 017 5:34 (specimen) EST AM EST Resulting Agency Comment Spec In Lab Daphne Shahid MD HEMATOLOGY ORDERABLES Performing Organization Address City/[facility]/ZIP [place] [address] (ABNORMAL) Hemogram (07/07/2017 5:15 AM EST) Analysis Performed At Patho logist Time Signature WBC 7.6 4.0 - 9.5 [facility] x10(3)/[facility] LABORATORY RBC 4.82 4.58 - [facility] 5.54 [facility] x10(6)/[facility] LABORATORY Hemoglobin 14.4 13.7 - [facility] 16.5 gm/dL [facility] Hematocrit 42.1 40.5 - [facility] 48.5 % [facility] MCV 87.3 82.9 - [facility] 93.1 [facility] LABORATORY MCH 29.9 27.5 - [facility] 32.1 pg [facility] MCHC 34.2 32.0 - [facility] 35.7 gm/dL [facility] Platelets 188 145 - 357 [facility] x10(3)/[facility] LABORATORY RDWSD 45.1 (H) 36.0 - [facility] 45.0 [facility] LABORATORY RDWCV 14.3 (H) 11.4 - [facility] 13.8 % [facility] MPV 9.4 7.6 - 12.9 [facility] LABORATORY nRBC % Auto 0.0 % [facility] nRBC Abs Auto 0.000 0.000 - [facility] 0.000 [facility] x10(3)/[facility] LABORATORY Specimen Anatomical Collection Method Collection Time Receive d Time (Source) Location / / Volume Laterality Blood specimen 07/07/2017 5:15 AM 017 5:34 (specimen) EST AM EST Resulting Agency Comment Spec In Lab Daphne Shahid MD HEMATOLOGY ORDERABLES Performing Organization Address City/State/[place] [address] (ABNORMAL) APTT (07/07/2017 5:15 [...] Address City/[facility]/[place] [address] Magnesium (07/07/2017 5:15 AM EST) athologist Signature Magnesium 0.94 0.69 - 1.07 [facility] mmol/L [facility] Specimen Anatomical Collection Method Collection Time Receive d Time (Source) Location / / Volume Laterality Blood specimen 07/07/2017 5:15 AM 017 5:34 (specimen) EST AM EST Resulting Agency Comment Spec In Lab Daphne Shahid MD CHEMISTRY ORDERABLES Performing Organization Address City/[facility]/[place] [address] (ABNORMAL) Basic Metabolic Panel (non-fasting) (07/07/2017 5:15 AM EST) P athologist Signature Glucose Lvl 203 (H) 65 - 199 [facility] mg/dL [facility] Comment: Diabetes: [...] or in patients with acute kidney failure. http://Socialite/DHnkdep http://Socialite/DHMCnkf Specimen Anatomical Collection Method Collection Time Receive d Time (Source) Location / / Volume Laterality Blood specimen 07/07/2017 5:15 AM 017 5:34 (specimen) EST AM EST Resulting Agency Comment Spec In Lab Daphne Shahid MD CHEMISTRY ORDERABLES Performing Organization Address City/State/ZIP [place] [address] (ABNORMAL) Cardiac Enzymes (LEB/CGP) (07/07/2017 5:15 AM EST) P athologist Signature Troponin-T 2.07 (H) 0.00 - [facility] 0.00 ng/mL [facility] Comment: The 99th percentile [...] additional sample may be indicated. Reference: Third [place] Definition of Myocardial Infarction. Journal of the [place] [employer] 2012;60:1581-98 CK, Total 88 0 - 200 unit/L [facility] Specimen Anatomical Collection Method Collection Time Receive d Time (Source) Location / / Volume Laterality Blood specimen 07/07/2017 5:15 AM 017 5:34 (specimen) EST AM EST Resulting Agency Comment Spec In Lab Daphne Shahid MD CHEMISTRY ORDERABLES Performing Organization Address City/[facility]/ZIP Code Phon e Number [address] POCT Glucose (07/07/2017 5:01 AM EST) athologist Signature POC Glucose 182 65 - 199 [facility] mg/dL [facility] Comment: Supplemental ranges: <140 mg/dL before meals <180 mg/dL all other times of the day Specimen Anatomical Collection Method Collection Time Receive d Time (Source) Location / / Volume Laterality Blood specimen 07/07/2017 5:01 AM 017 5:01 (specimen) EST AM EST Daphne Shahid MD POINT OF CARE TEST ORDERABLE S Performing Organization Address City/[facility]/ZIP [facility] Phon e Number [address] POCT Glucose (07/07/2017 4:08 AM EST) athologist Signature POC Glucose 199 65 - 199 [facility] mg/dL [facility] Comment: Supplemental ranges: <140 mg/dL before meals <180 mg/dL all other times of the day Specimen Anatomical Collection Method Collection Time Receive d Time (Source) Location / / Volume Laterality Blood specimen 07/07/2017 4:08 AM 017 4:08 (specimen) EST AM EST Daphne Shahid MD POINT OF CARE TEST ORDERABLE S Performing Organization Address City/State/ZIP Code Phon e Number [address] POCT Glucose (07/07/2017 3:03 AM EST) athologist Signature POC Glucose 188 65 - 199 [facility] RYAN mg/dL [facility] Comment: Supplemental ranges: <140 mg/dL before meals <180 mg/dL all other times of the day Specimen Anatomical Collection Method Collection Time Receive d Time (Source) Location / / Volume Laterality Blood specimen 07/07/2017 3:03 AM 017 3:03 (specimen) EST AM EST Daphne Shahid MD POINT OF CARE TEST ORDERABLE S Performing Organization Address City/State/[place] [address] (ABNORMAL) POCT Glucose (07/07/2017 2:08 AM EST) athologist Signature POC Glucose 200 (H) 65 - 199 [place] RYAN mg/dL [facility] Comment: Supplemental ranges: <140 mg/dL before meals <180 mg/dL all other times of the day Specimen Anatomical Collection Method Collection Time Receive d Time (Source) Location / / Volume Laterality Blood specimen 07/07/2017 2:08 AM 017 2:08 (specimen) EST AM EST Daphne Shahid MD POINT OF CARE TEST ORDERABLE S Performing Organization Address City/State/ZIP Code Phon e Number [address] (ABNORMAL) POCT Glucose (07/07/2017 1:31 AM EST) athologist Signature POC Glucose 209 (H) 65 - 199 [place] RYAN mg/dL [facility] Comment: Supplemental ranges: <140 mg/dL before meals <180 mg/dL all other times of the day Specimen Anatomical Collection Method Collection Time Receive d Time (Source) Location / / Volume Laterality Blood specimen 07/07/2017 1:31 AM 017 1:31 (specimen) EST AM EST Daphne Shahid MD POINT OF CARE TEST ORDERABLE S Performing Organization Address City/State/ZIP [place] [address] XR Chest PA or [...] Glucose 161 65 - 199 [facility] mg/dL [facility] Comment: Supplemental ranges: <140 mg/dL before meals <180 mg/dL all other times of the day Specimen Anatomical Collection Method Collection Time Receive d Time (Source) Location / / Volume Laterality Blood specimen 07/07/2017 12:07 7 (specimen) AM EST 12:07 AM EST Daphne Shahid MD POINT OF CARE TEST ORDERABLE S Performing Organization Address City/State/[place] [address] (ABNORMAL) APTT (07/07/2017 12:00 [...] Address City/[facility]/[place] [address] POCT Glucose (07/06/2017 9:55 PM EST) athologist Signature POC Glucose 109 65 - 199 [facility] Comment: Supplemental ranges: <140 mg/dL before meals <180 mg/dL all other times of the day Specimen Anatomical Collection Method Collection Time Receive d Time (Source) Location / / Volume Laterality Blood specimen 07/06/2017 9:55 PM 017 9:55 (specimen) EST PM EST Daphne Shahid MD POINT OF CARE TEST ORDERABLE S Performing Organization Address City/[facility]/[place] [address] POCT Glucose (07/06/2017 9:04 PM EST) athologist Signature POC Glucose 120 65 - 199 [facility] mg/dL [facility] Comment: Supplemental ranges: <140 mg/dL before meals <180 mg/dL all other times of the day Specimen Anatomical Collection Method Collection Time Receive d Time (Source) Location / / Volume Laterality Blood specimen 07/06/2017 9:04 PM 017 9:04 (specimen) EST PM EST Daphne Shahid MD POINT OF CARE TEST ORDERABLE S Performing Organization Address City/[facility]/[place] [address] POCT Glucose (07/06/2017 7:45 PM EST) athologist Signature POC Glucose 158 65 - 199 [facility] mg/dL [facility] Comment: Supplemental ranges: <140 mg/dL before meals <180 mg/dL all other times of the day Specimen Anatomical Collection Method Collection Time Receive d Time (Source) Location / / Volume Laterality Blood specimen 07/06/2017 7:45 PM 017 7:45 (specimen) EST PM EST Daphne Shahid MD POINT OF CARE TEST ORDERABLE S Performing Organization Address City/[facility]/[place] [address] Potassium (07/06/2017 7:40 PM EST) athologist Signature Potassium 3.9 3.5 - 5.0 [facility] mmol/L [facility] Comment: Please note: ??Patients [...] Address City/[facility]/[place] [address] (ABNORMAL) Cardiac Enzymes (LEB/CGP) (07/06/2017 7:40 PM EST) athologist Signature Troponin-T 2.27 (H) 0.00 - [facility] 0.00 ng/mL [facility] Comment: The 99th percentile [...] additional sample may be indicated. Reference: Third [place] Definition of Myocardial Infarction. Journal of the [place] [employer] 2012;60:1581-98 CK, Total 93 0 - 200 unit/L [facility] Specimen Anatomical Collection Method Collection Time Receive d Time (Source) Location / / Volume Laterality Blood specimen 07/06/2017 7:40 PM 017 7:52 (specimen) EST PM EST Resulting Agency Comment Spec In Lab Daphne Shahid MD CHEMISTRY ORDERABLES Performing Organization Address City/State/ZIP [place] [address] (ABNORMAL) POCT Glucose (07/06/2017 7:13 PM EST) athologist Signature POC Glucose 200 (H) 65 - 199 [facility]dL [facility] Comment: Supplemental ranges: <140 mg/dL before meals <180 mg/dL all other times of the day Specimen Anatomical Collection Method Collection Time Receive d Time (Source) Location / / Volume Laterality Blood specimen 07/06/2017 7:13 PM 017 7:13 (specimen) EST PM EST Daphne Shahid MD POINT OF CARE TEST ORDERABLE S Performing Organization Address City/[facility]/[place] [address] (ABNORMAL) APTT (07/06/2017 6:15 [...] Address City/[facility]/[place] [address] (ABNORMAL) POCT Glucose (07/06/2017 6:03 PM EST) athologist Signature POC Glucose 236 (H) 65 - 199 [facility]dL [facility] Comment: Supplemental ranges: <140 mg/dL before meals <180 mg/dL all other times of the day Specimen Anatomical Collection Method Collection Time Receive d Time (Source) Location / / Volume Laterality Blood specimen 07/06/2017 6:03 PM 017 6:03 (specimen) EST PM EST Daphne Shahid MD POINT OF CARE TEST ORDERABLE S Performing Organization Address City/[facility]/[place] [address] (ABNORMAL) POCT Glucose (07/06/2017 5:01 PM EST) athologist Signature POC Glucose 235 (H) 65 - 199 [facility] mg/dL [facility] Comment: Supplemental ranges: <140 mg/dL before meals <180 mg/dL all other times of the day Specimen Anatomical Collection Method Collection Time Receive d Time (Source) Location / / Volume Laterality Blood specimen 07/06/2017 5:01 PM 017 5:01 (specimen) EST PM EST Daphne Shahid MD POINT OF CARE TEST ORDERABLE S Performing Organization Address City/State/[place] [address] (ABNORMAL) POCT Glucose (07/06/2017 4:06 PM EST) athologist Signature POC Glucose 202 (H) 65 - 199 [place] [facility] mg/dL [facility] Comment: Supplemental ranges: <140 mg/dL before meals <180 mg/dL all other times of the day Specimen Anatomical Collection Method Collection Time Receive d Time (Source) Location / / Volume Laterality Blood specimen 07/06/2017 4:06 PM 017 4:06 (specimen) EST PM EST Daphne Shahid MD POINT OF CARE TEST ORDERABLE S Performing Organization Address City/State/[place] [address] POCT Glucose (07/06/2017 2:59 PM EST) athologist Signature POC Glucose 178 65 - 199 [place] [facility] mg/dL [facility] Comment: Supplemental ranges: <140 mg/dL before meals <180 mg/dL all other times of the day Specimen Anatomical Collection Method Collection Time Receive d Time (Source) Location / / Volume Laterality Blood specimen 07/06/2017 2:59 PM 017 2:59 (specimen) EST PM EST Daphne Shahid MD POINT OF CARE TEST ORDERABLE S Performing Organization Address City/State/[place] [address] (ABNORMAL) Cardiac Enzymes (LEB/CGP) (07/06/2017 2:10 PM EST) athologist Signature Troponin-T 2.34 (H) 0.00 - [facility] 0.00 ng/mL [facility] Comment: The 99th percentile [...] additional sample may be indicated. Reference: Third Leicester Definition of Myocardial Infarction. Journal of the [place] College of Cardiology 2012;60:1581-98 CK, Total 101 0 - 200 unit/L [facility] LABORATORY Specimen Anatomical Collection Method Collection Time Receive d Time (Source) Location / / Volume Laterality Blood specimen 07/06/2017 2:10 PM 017 2:26 (specimen) EST PM EST Resulting Agency Comment Spec In Lab Daphne Shahid MD CHEMISTRY ORDERABLES Performing Organization Address City/State/ZIP [place] [address] POCT Glucose (07/06/2017 2:08 PM EST) P athologist Signature POC Glucose 192 65 - 199 [facility] mg/dL [facility] Comment: Supplemental ranges: <140 mg/dL before meals <180 mg/dL all other times of the day Specimen Anatomical Collection Method Collection Time Receive d Time (Source) Location / / Volume Laterality Blood specimen 07/06/2017 2:08 PM 017 2:08 (specimen) EST PM EST Daphne Shahid MD POINT OF CARE TEST ORDERABLE S Performing Organization Address City/State/ZIP Code Phon e Number [address] POCT Glucose (07/06/2017 1:04 PM EST) P athologist Signature POC Glucose 162 65 - 199 [facility]dL [facility] Comment: Supplemental ranges: <140 mg/dL before meals <180 mg/dL all other times of the day Specimen Anatomical Collection Method Collection Time Receive d Time (Source) Location / / Volume Laterality Blood specimen 07/06/2017 1:04 PM 017 1:04 (specimen) EST PM EST Daphne Shahid MD POINT OF CARE TEST ORDERABLE S Performing Organization Address City/[facility]/ZIP Code Phon e Number [address] POCT Glucose (07/06/2017 12:05 PM EST) athologist Signature POC Glucose 196 65 - 199 [facility]dL [facility] Comment: Supplemental ranges: <140 mg/dL before meals <180 mg/dL all other times of the day Specimen Anatomical Collection Method Collection Time Receive d Time (Source) Location / / Volume Laterality Blood specimen 07/06/2017 12:05 7 (specimen) PM EST 12:05 PM EST Daphne Shahid MD POINT OF CARE TEST ORDERABLE S Performing Organization Address City/State/[place] [address] EKG 12 Lead (07/06/2017 12:00 PM EST) Component Value Ref Range Test Analysis Performed Pathologis t Method Time At Signature Ventricular rate 91 BPM MUSE SYSTEM Atrial Rate 91 BPM MUSE SYSTEM P-R Interval 140 ms MUSE SYSTEM QRS Duration 94 ms MUSE SYSTEM Q-T Interval 394 ms MUSE SYSTEM QTC Calculated 484 ms MUSE SYSTEM (Bezet) Calculated P [place] 36 degrees MUSE SYSTEM Calculated R [place] -19 degrees MUSE SYSTEM Calculated T [place] 104 degrees MUSE SYSTEM INTERPRETATION Normal sinus rhythm MUSE SYSTEM 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) ST & T wave abnormality, consider lateral ischemia Abnormal ECG When compared with ECG of 05-JUL-2017 20:39, No significant change was found Confirmed by MD Verma Gregory A. ([id number]) on 07/06/2017 5:07:33 PM Specimen Anatomical Collection [...] Address City/[facility]/[place] [address] Antibody screen (07/06/2017 12:00 PM EST) [facility] Method Time Signature Ab Screen Negative [facility] LABORATORY Expires at 07/09/2017 [facility] 235 on: [facility] LABORATORY Specimen Anatomical Collection Method Collection Time Receive d Time (Source) Location / / Volume Laterality Blood specimen 07/06/2017 12:00 7 (specimen) PM EST 12:24 PM EST Resulting Agency Comment Spec In Lab Daphne Shahid MD BLOOD BANK ORDERABLES Performing Organization Address City/[facility]/[place] [address] ABO/Rh Typing (07/06/2017 12:00 [...] Organization Address City/State/[place] [address] Prothrombin Time (07/06/2017 11:24 AM EST) athologist Signature PT 13.3 11.8 - 14.0 [facility] LABORATORY INR 1.0 0.9 - 1.1 [...] Address City/[facility]/[place] [address] (ABNORMAL) APTT (07/06/2017 11:24 [...] Organization Address City/State/[place] [address] POCT Glucose (07/06/2017 11:02 AM EST) athologist Signature POC Glucose 187 65 - 199 [facility] mg/dL [facility] Comment: Supplemental ranges: <140 mg/dL before meals <180 mg/dL all other times of the day Specimen Anatomical Collection Method Collection Time Receive d Time (Source) Location / / Volume Laterality Blood specimen 07/06/2017 11:02 7 (specimen) AM EST 11:02 AM EST Daphne Shahid MD POINT OF CARE TEST ORDERABLE S Performing Organization Address City/State/ZIP Code Phon e Number [address] POCT Glucose (07/06/2017 10:18 AM EST) athologist Signature POC Glucose 193 65 - 199 [facility] mg/dL [facility] Comment: Supplemental ranges: <140 mg/dL before meals <180 mg/dL all other times of the day Specimen Anatomical Collection Method Collection Time Receive d Time (Source) Location / / Volume Laterality Blood specimen 07/06/2017 10:18 7 (specimen) AM EST 10:18 AM EST Daphne Shaihd MD POINT OF CARE TEST ORDERABLE S Performing Organization Address City/State/ZIP Code Phon e Number [address] POCT Glucose (07/06/2017 9:25 AM EST) athologist Signature POC Glucose 182 65 - 199 [place] mg/dL [facility] Comment: Supplemental ranges: <140 mg/dL before meals <180 mg/dL all other times of the day Specimen Anatomical Collection Method Collection Time Receive d Time (Source) Location / / Volume Laterality Blood specimen 07/06/2017 9:25 AM 017 9:25 (specimen) EST AM EST Daphne Shahid MD POINT OF CARE TEST ORDERABLE S Performing Organization Address City/State/[place] [address] (ABNORMAL) Cardiac Enzymes (LEB/CGP) (07/06/2017 8:10 AM EST) athologist Signature Troponin-T 2.26 (H) 0.00 - [facility] 0.00 ng/mL [facility] Comment: The 99th percentile [...] additional sample may be indicated. Reference: Third Leicester Definition of Myocardial Infarction. Journal of the [place] College of [employer]iology 2012;60:1581-98 CK, Total 124 0 - 200 unit/L [facility] LABORATORY Specimen Anatomical Collection Method Collection Time Receive d Time (Source) Location / / Volume Laterality Blood specimen 07/06/2017 8:10 AM 017 8:23 (specimen) EST AM EST Resulting Agency Comment Spec In Lab Daphne Shahid MD CHEMISTRY ORDERABLES Performing Organization Address City/State/ZIP [place] [address] Magnesium (07/06/2017 8:10 AM EST) athologist Signature Magnesium 0.84 0.69 - 1.07 [facility] mmol/L [facility] LABOR[facility]ORY Specimen Anatomical Collection Method Collection Time Receive d Time (Source) Location / / Volume Laterality Blood specimen 07/06/2017 8:10 AM 017 8:21 (specimen) EST AM EST Resulting Agency Comment Spec In Lab Daphne Shahid MD CHEMISTRY ORDERABLES Performing Organization Address City/[facility]/ZIP [place] [address] (ABNORMAL) Basic Metabolic Panel (non-fasting) (07/06/2017 8:10 AM EST) P athologist Signature Glucose Lvl 199 65 - 199 [facility] mg/dL [facility] Comment: Diabetes: [...] or in patients with acute kidney failure. [email or web address] [email or web address] Specimen Anatomical Collection Method Collection Time Receive d Time (Source) Location / / Volume Laterality Blood specimen 07/06/2017 8:10 AM 017 8:21 (specimen) EST AM EST Resulting Agency Comment Spec In Lab Daphne Shahid MD CHEMISTRY ORDERABLES Performing Organization Address City/[facility]/[place] [address] POCT Glucose (07/06/2017 7:34 AM EST) P athologist Signature POC Glucose 198 65 - 199 [facility]/dL [facility] Comment: Supplemental ranges: <140 mg/dL before meals <180 mg/dL all other times of the day Specimen Anatomical Collection Method Collection Time Receive d Time (Source) Location / / Volume Laterality Blood specimen 07/06/2017 7:34 AM 017 7:34 (specimen) EST AM EST Daphne Shahid MD POINT OF CARE TEST ORDERABLE S Performing Organization Address City/State/ZIP Code Phon e Number [address] POCT Glucose (07/06/2017 7:03 AM EST) athologist Signature POC Glucose 181 65 - 199 [facility] mg/dL [facility] Comment: Supplemental ranges: <140 mg/dL before meals <180 mg/dL all other times of the day Specimen Anatomical Collection Method Collection Time Receive d Time (Source) Location / / Volume Laterality Blood specimen 07/06/2017 7:03 AM 017 7:03 (specimen) EST AM EST Daphne Shahid MD POINT OF CARE TEST ORDERABLE S Performing Organization Address City/State/[place] [address] XR Chest PA or [...] Signature POC Glucose 172 65 - 199 [facility] mg/dL [facility] Comment: Supplemental ranges: <140 mg/dL before meals <180 mg/dL all other times of the day Specimen Anatomical Collection Method Collection Time Receive d Time (Source) Location / / Volume Laterality Blood specimen 07/06/2017 6:21 AM 017 6:21 (specimen) EST AM EST Daphne Shahid MD POINT OF CARE TEST ORDERABLE S Performing Organization Address City/State/ZIP [place] [address] POCT Glucose (07/06/2017 5:08 AM EST) athologist Signature POC Glucose 154 65 - 199 [facility] mg/dL [facility] Comment: Supplemental ranges: <140 mg/dL before meals <180 mg/dL all other times of the day Specimen Anatomical Collection Method Collection Time Receive d Time (Source) Location / / Volume Laterality Blood specimen 07/06/2017 5:08 AM 017 5:08 (specimen) EST AM EST Daphne Shahid MD POINT OF CARE TEST ORDERABLE S Performing Organization Address City/State/ZIP Code Phon e Number [address] POCT Glucose (07/06/2017 4:05 AM EST) athologist Signature POC Glucose 142 65 - 199 [facility] mg/dL [facility] Comment: Supplemental ranges: <140 mg/dL before meals <180 mg/dL all other times of the day Specimen Anatomical Collection Method Collection Time Receive d Time (Source) Location / / Volume Laterality Blood specimen 07/06/2017 4:05 AM 017 4:05 (specimen) EST AM EST Daphne Shahid MD POINT OF CARE TEST ORDERABLE S Performing Organization Address City/[facility]/ZIP Code Phon e Number [address] POCT Glucose (07/06/2017 3:00 AM EST) athologist Signature POC Glucose 116 65 - 199 [facility]dL [facility] Comment: Supplemental ranges: <140 mg/dL before meals <180 mg/dL all other times of the day Specimen Anatomical Collection Method Collection Time Receive d Time (Source) Location / / Volume Laterality Blood specimen 07/06/2017 3:00 AM 017 3:00 (specimen) EST AM EST Daphne Shahid MD POINT OF CARE TEST ORDERABLE S Performing Organization Address City/State/ZIP Code Phon e Number [address] Potassium (07/06/2017 2:20 AM EST) athologist Signature Potassium 3.9 3.5 - 5.0 [facility] mmol/L [facility]ORY Comment: Please note: ??Patients [...] Organization Address City/State/ZIP [place] [address] Differential, Automated (07/06/2017 2:20 AM EST) athologist Signature Neutrophils % 72.9 % [facility] LABORATORY Neutr Abs (ANC) 5.53 1.70 - [facility] 6.10 [facility] x10(3)[facility] LABORATORY Lymphocytes % 16.4 % [facility] Lymphocytes Abs 1.2 0.9 - 3.2 [facility] x10(3)/[facility] LABORATORY Monocytes % 9.4 % [facility] Monocyte Abs 0.7 0.3 - 0.9 [facility] x10(3)/[facility] LABORATORY Eosinophils % 0.5 % [facility] Eosinophils Abs 0.0 0.0 - 0.4 [facility] x10(3)[facility] LABORATORY Basophils % 0.4 % [facility] Basophils Abs 0.0 0.0 - 0.1 [facility] x10(3)/[facility] LABORATORY Immature Gran % 0.40 % [facility] Comment: Immature granulocytes(IG's)percentage an d absolute count will include metamyelocytes, myelocytes, and promyelo cytes. Blood smears from CBCs yielding IG's will be scanned manually for concor dance. If this scan disagrees with the automated IG or if promyelocytes are not ed, a manual differential will be performed. Melisa Gran Abs 0.03 0.00 - 0.04 x10(3)/[facility] MAR Y [facility] LABORATORY Specimen Anatomical Collection Method Collection Time Receive d Time (Source) Location / / Volume Laterality Blood specimen 07/06/2017 2:20 AM 017 2:33 (specimen) EST AM EST Resulting Agency Comment Spec In Lab Daphne Shahid MD HEMATOLOGY ORDERABLES Performing Organization Address City/State/ZIP [place] [address] (ABNORMAL) Hemogram (07/06/2017 2:20 AM EST) Analysis Performed At Patho logist Time Signature WBC 7.6 4.0 - 9.5 [facility] x10(3)/[facility] LABORATORY RBC 4.52 (L) 4.58 - [facility] 5.54 [facility] x10(6)/[facility] LABORATORY Hemoglobin 13.4 (L) 13.7 - [facility] 16.5 gm/dL [facility] LABORATORY Hematocrit 39.7 (L) 40.5 - [facility] 48.5 % [facility] LABORATORY MCV 87.8 82.9 - [facility] 93.1 [facility] LABORATORY MCH 29.6 27.5 - [place] [facility] 32.1 pg [facility] LABORATORY MCHC 33.8 32.0 - [facility] 35.7 gm/dL [facility]ORATORY Platelets 189 145 - 357 [facility] x10(3)/[facility] LABORATORY RDWSD 45.6 (H) 36.0 - [facility] 45.0 [facility] LABORATORY RDWCV 14.3 (H) 11.4 - [facility] 13.8 % [facility] LABORATORY MPV 9.1 7.6 - 12.9 [facility] nRBC % Auto 0.0 % [facility] LABORATORY nRBC Abs Auto 0.000 0.000 - [place] [facility] 0.000 [facility] x10(3)/[facility] LABORATORY Specimen Anatomical Collection Method Collection Time Receive d Time (Source) Location / / Volume Laterality Blood specimen 07/06/2017 2:20 AM 017 2:33 (specimen) EST AM EST Resulting Agency Comment Spec In Lab Daphne Shahid MD HEMATOLOGY ORDERABLES Performing Organization Address City/State/ZIP Code Phon [place] [facility] [address] (ABNORMAL) APTT (07/06/2017 2:20 [...] Organization Address City/State/[place] [address] POCT Glucose (07/06/2017 2:20 AM EST) athologist Signature POC Glucose 115 65 - 199 [facility] mg/dL [facility] Comment: Supplemental ranges: <140 mg/dL before meals <180 mg/dL all other times of the day Specimen Anatomical Collection Method Collection Time Receive d Time (Source) Location / / Volume Laterality Blood specimen 07/06/2017 2:20 AM 017 2:20 (specimen) EST AM EST Daphne Shahid MD POINT OF CARE TEST ORDERABLE S Performing Organization Address City/State/[place] [address] (ABNORMAL) Cardiac Enzymes (LEB/CGP) (07/06/2017 2:20 AM EST) athologist Signature Troponin-T 2.13 (H) 0.00 - [facility] 0.00 ng/mL [facility] Comment: The 99th percentile [...] additional sample may be indicated. Reference: Third [place] Definition of Myocardial Infarction. Journal of the [place] College [employer]iology 2012;60:1581-98 CK, Total 129 0 - 200 unit/L [facility] LABORATORY Specimen Anatomical Collection Method Collection Time Receive d Time (Source) Location / / Volume Laterality Blood specimen 07/06/2017 2:20 AM 017 2:33 (specimen) EST AM EST Resulting Agency Comment Spec In Lab Daphne Shahid MD CHEMISTRY ORDERABLES Performing Organization Address City/State/ZIP [place] [address] (ABNORMAL) Hemoglobin A1c (07/06/2017 [...] with hemoglobinopathies. Additional resources are available on [facility] ADA website. Macario HAMMOND, Ruthann J, Deysi R, et al. ??Tr anslating the A1C assay into estimated average glucose values. ??Diabetes Care 2008:31(8):8599-4750. Specimen Anatomical Collection Method Collection Time Receive d Time (Source) Location / / Volume Laterality Blood specimen 07/06/2017 2:20 AM 017 2:34 (specimen) EST AM EST Resulting Agency Comment Spec In Lab Daphne Shahid MD CHEMISTRY ORDERABLES Performing Organization Address City/State/ZIP [place] [address] (ABNORMAL) Lipid Panel (07/06/2017 2:20 AM EST) [facility] Method Time Signature Chol, Total 150 <=239 [place] mg/dL [facility] LABORATORY Triglycerides 129 <=199 [place] mg/dL [facility] LABORATORY HDL 32 (L) >=40 [place] mg/dL [facility] LABORATORY LDL Cholesterol 92 <=190 [place] mg/dL [facility] LABORATORY Chol/HDL Ratio 4.7 ratio [place] [facility] LABORATORY Lipid See Note [place] Hernandes [facility] LABORATORY Comment: Lipid management should be guided by a p atient? s ASCVD risk, goals and preferences. ACC/AHA Guidelines recommend high intens ity statin if clinical ASCVD or LDL greater than or equal to 190 mg/dL. [email or web address] Adults aged 40-75 with LDL 70-189 mg/dL should have their 10 year ASCVD risk estimated with the ACC/AHA ASCVD risk es timator http://tools.acc.org/SULAA-Csto-Xaumpwkq r/ Statin should be discussed if risk [...] Organization Address City/State/ZIP [place] [address] POCT Glucose (07/06/2017 1:09 AM EST) P athologist Signature POC Glucose 121 65 - 199 [facility] mg/dL [facility] Comment: Supplemental ranges: <140 mg/dL before meals <180 mg/dL all other times of the day Specimen Anatomical Collection Method Collection Time Receive d Time (Source) Location / / Volume Laterality Blood specimen 07/06/2017 1:09 AM 017 1:09 (specimen) EST AM EST Daphne Shahid MD POINT OF CARE TEST ORDERABLE S Performing Organization Address City/State/ZIP Code [place] [address] POCT Glucose (07/06/2017 12:06 AM EST) athologist Signature POC Glucose 147 65 - 199 [facility] mg/dL [facility] Comment: Supplemental ranges: <140 mg/dL before meals <180 mg/dL all other times of the day Specimen Anatomical Collection Method Collection Time Receive d Time (Source) Location / / Volume Laterality Blood specimen 07/06/2017 12:06 7 (specimen) AM EST 12:06 AM EST Daphne Shahid MD POINT OF CARE TEST ORDERABLE S Performing Organization Address City/State/[place] [address] (ABNORMAL) POCT Glucose (07/05/2017 10:56 PM EST) athologist Signature POC Glucose 200 (H) 65 - 199 [facility] mg/dL [facility] Comment: Supplemental ranges: <140 mg/dL before meals <180 mg/dL all other times of the day Specimen Anatomical Collection Method Collection Time Receive d Time (Source) Location / / Volume Laterality Blood specimen 07/05/2017 10:56 7 (specimen) PM EST 10:56 PM EST Daphne Shahid MD POINT OF CARE TEST ORDERABLE S Performing Organization Address City/State/[place] [address] (ABNORMAL) POCT Glucose (07/05/2017 10:05 PM EST) athologist Signature POC Glucose 225 (H) 65 - 199 [facility] mg/dL [facility] Comment: Supplemental ranges: <140 mg/dL before meals <180 mg/dL all other times of the day Specimen Anatomical Collection Method Collection Time Receive d Time (Source) Location / / Volume Laterality Blood specimen 07/05/2017 10:05 7 (specimen) PM EST 10:05 PM EST Daphne Shahid MD POINT OF CARE TEST ORDERABLE S Performing Organization Address City/State/[place] [address] (ABNORMAL) POCT Glucose (07/05/2017 9:02 PM EST) P athologist Signature POC Glucose 301 (H) 65 - 199 [place] mg/dL [facility] LABORATORY Comment: Supplemental ranges: <140 mg/dL before meals <180 mg/dL all other times of the day Specimen Anatomical Collection Method Collection Time Receive d Time (Source) Location / / Volume Laterality Blood specimen 07/05/2017 9:02 PM 017 9:02 (specimen) EST PM EST Daphne Shahid MD POINT OF CARE TEST ORDERABLE S Performing Organization Address City/State/ZIP Code Phon e Number [facility] [address] XR Chest PA or [...] 474 ms MUSE SYSTEM (Bezet) Calculated P [place] 50 degrees MUSE SYSTEM Calculated R [place] -28 degrees MUSE SYSTEM Calculated T [place] 90 degrees MUSE SYSTEM INTERPRETATION Sinus tachycardia [...] (ABNORMAL) Differential, Automated (07/05/2017 8:20 PM EST) [facility] gist Method Time Signature Neutrophils % 88.4 % [facility] LABORATORY Neutr Abs (ANC) 9.08 (H) 1.70 - [facility] 6.10 [facility] x10(3)/[facility] L LABORATORY Lymphocytes % 7.0 % [facility] LABORATORY Lymphocytes Abs 0.7 (L) 0.9 - 3.2 [facility] x10(3)/[facility] LABORATORY Monocytes % 3.7 % [facility] LABORATORY Monocyte Abs 0.4 0.3 - 0.9 [facility] x10(3)/[facility] LABORATORY Eosinophils % 0.1 % [facility] LABORATORY Eosinophils Abs 0.0 0.0 - 0.4 [facility] x10(3)/[facility] LABORATORY Basophils % 0.2 % [facility] LABORATORY Basophils Abs 0.0 0.0 - 0.1 [facility] x10(3)/[facility] LABORATORY Immature Gran % 0.60 [...] Gran Abs 0.06 (H) 0.00 - 0.04 x10(3)/[facility] LABORATORY Specimen Anatomical Collection Method Collection Time Receive d Time (Source) Location / / Volume Laterality Blood specimen 07/05/2017 8:20 PM 017 8:27 (specimen) EST PM EST Resulting Agency Comment Spec In Lab Daphne Shahid MD HEMATOLOGY ORDERABLES Performing Organization Address City/State/ZIP [place] [address] (ABNORMAL) Hemogram (07/05/2017 8:20 PM EST) Analysis Performed At Patho logist Time Signature WBC 10.3 (H) 4.0 - 9.5 [facility] x10(3)/[facility] LABORATORY RBC 4.64 4.58 - [facility] RYAN 5.54 [facility] x10(6)/[facility] LABORATORY Hemoglobin 14.1 13.7 - [facility] gm/dL [facility] LABORATORY Hematocrit 40.8 40.5 - [place] 48.5 % [facility] LABORATORY MCV 87.9 82.9 - [facility] 93.1 [facility] LABORATORY MCH 30.4 27.5 - [place] 32.1 pg [facility] LABORATORY MCHC 34.6 32.0 - [facility] 35.[facility] gm/dL [facility] LABORATORY Platelets 204 145 - 357 [facility] x10(3)/[facility] LABORATORY RDWSD 46.1 (H) 36.0 - [place] 45.0 [facility] LABORATORY RDWCV 14.5 (H) 11.4 - [facility] 13.8 % [facility] LABORATORY MPV 9.7 7.6 - 12.9 [facility] LABORATORY nRBC % Auto 0.0 % [facility] LABORATORY nRBC Abs Auto 0.000 0.000 - [place] ZHAORYAN 0.000 [facility] x10(3)/[facility] LABORATORY Specimen Anatomical Collection Method Collection Time Receive d Time (Source) Location / / Volume Laterality Blood specimen 07/05/2017 8:20 PM 017 8:27 (specimen) EST PM EST Resulting Agency Comment Spec In Lab Daphne Shahid MD HEMATOLOGY ORDERABLES Performing Organization Address City/[facility]/ZIP Code Phon e Number [address] APTT (07/05/2017 8:20 PM [...] HEMATOLOGY ORDERABLES Performing Organization Address City/[facility]/ZIP [facility] [place] [address] (ABNORMAL) Cardiac Enzymes (LEB/CGP) (07/05/2017 8:20 PM EST) P athologist Signature Troponin-T 2.11 (H) 0.00 - [facility] 0.00 ng/mL [facility] LABORATORY Comment: The 99th percentile [...] additional sample may be indicated. Reference: Third Leicester Definition of Myocardial Infarction. Journal of the [place] College of Cardiology 2012;60:1581-98 CK, Total 149 0 - 200 unit/L [facility] LABORATORY Specimen Anatomical Collection Method Collection Time Receive d Time (Source) Location / / Volume Laterality Blood specimen 07/05/2017 8:20 PM 017 8:27 (specimen) EST PM EST Resulting Agency Comment Spec In Lab Daphne Shahid MD CHEMISTRY ORDERABLES Performing Organization Address City/[facility]/[place] [address] (ABNORMAL) Magnesium (07/05/2017 8:20 PM EST) P athologist Signature Magnesium 0.68 (L) 0.69 - 1.07 [facility] mmol/L [facility] LABORATORY Specimen Anatomical Collection Method Collection Time Receive d Time (Source) Location / / Volume Laterality Blood specimen 07/05/2017 8:20 PM 017 8:27 (specimen) EST PM EST Resulting Agency Comment Spec In Lab Daphne Shahid MD CHEMISTRY ORDERABLES Performing Organization Address City/State/[place] [address] (ABNORMAL) Basic Metabolic Panel (non-fasting) (07/05/2017 8:20 PM EST) athologist Signature Glucose Lvl 321 (H) 65 - 199 [facility] mg/dL [facility] LABORATORY Comment: Diabetes: [...] or in patients with acute kidney failure. http://Breadtrip.SyncSum/DHnkdep http://Socialite/DHMCnkf Specimen Anatomical Collection Method Collection Time Receive d Time (Source) Location / / Volume Laterality Blood specimen 07/05/2017 8:20 PM 017 8:27 (specimen) EST PM EST Resulting Agency Comment Spec In Lab Daphne Shahid MD CHEMISTRY ORDERABLES Performing Organization Address City/State/ZIP [place] [address] (ABNORMAL) POCT Glucose (07/05/2017 7:32 PM EST) athologist Signature POC Glucose 296 (H) 65 - 199 [facility] mg/dL [facility] LABORATORY Comment: Supplemental ranges: <140 mg/dL before meals <180 mg/dL all other times of the day Specimen Anatomical Collection Method Collection Time Receive d Time (Source) Location / / Volume Laterality Blood specimen 07/05/2017 7:32 PM 017 7:32 (specimen) EST PM EST Daphne Shahid MD POINT OF CARE TEST ORDERABLE S Performing Organization Address City/State/ZIP [place] [address] CARDIAC CATHETERIZATION (07/05/2017 6:47 PM EST) Anatomical Region Laterality Modality Other Specimen (Source) Anatomical Location Collection Method / Collectio n Time Received Time / Laterality Volume Narrative 07/05/2017 7:27 PM EST ?[facility] ? Cardiac Cathete rization/Intervention Report ? Patient Name: Natalya, Gregory ? Procedure Date: 07/05/2017 ? A #: [id number] ? Primary Physician: Clarisa, Jet T ? Case #: [id number] ? File Name: [id number] ? Catheterization Order Number: [id number] ? [facility] ? Final Report [place], [place] ? Patient Name: ? Gregory Natalya ?ID#: ?[id number] ? : ?1945 ? Procedure Date: ? [...] presented with: non -STEMI (w/i 7 days). Italian ?Cardiovascular Society angina c lass was IV. 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 ? Jet Mckenna, M.D. ? Electronically Signed by: Jet Sampson DeVrizack s, M.D. ? Report Finalized: 07/05/2017 ??19:23 ? Report Last Ammended: 10/26/2017 ??10:29 ? Procedure Note Jet Mckenna MD - 10/26/2017Formatt ing of this note might be different from the original. [facility] Cardiac Catheterization/Intervention Re port Patient Name: Gregory Hoang Procedure Date: 07/05/2017 A #: [id number] Primary Physician: Jet Mckenna Case #: [id number] File Name: [id number] Catheterization Order Number: [id number] [facility] Final Report [place], [place] Patient Name: Gregory Hoang ID#: [id number] : 1945 Procedure Date: July 05, [...] presented with: non-STEMI ( w/i 7 days). Italian Cardiovascular Society angina class was IV. 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 Jet Mckenna M.D. Electronically Signed by: Jet [...] E ? (Age): 1945(72y) Med Rec#: ? [id number] ?Sex: ?M ? Site Loc: ? [facility] ?Ht / Wt: ??173(cm)/86(kg) Pt. Loc: ?[facility] ? BSA: ?2 Study Date: ?? 07/05/2017 ?Pt. Type: Inpatient Tape: ? Referring: Daphne Shahid ([id number]) Referring: MANDA ALCANTAR Reading: Blade Preston ([id number]) Black Top Spreader Machine Operator: Dayami Paula BA, [facility] Diagnosis: *ICD-10-PCS Non-ST elevation (NSTEMI) m yocardial [...] E-wave Vmax ?0.8 ?m/sec ? MV deceleration ieze420 ?msec ? MV A-wave Vmax ?0.8 ?m/sec [...] ? Mid-Inferior ?Akinetic ? Mid-Inferoseptal ?Hypokinetic ? [place]-Septal ? Akinetic ? [place]-Anterior ? Hypokinetic ? [place]-Lateral ?Hypokinetic ? [place]-Inferior ? Akinetic ? [place]-Tip ?Akinetic ? This report has been electronically sign ed by: _ Blade Preston MD ? 07/06/2017 08 :53:15 Images reviewed and interpretation verif ied [facility] Cardiac Ultrasound Laboratory Procedure Note Blade Preston MD - 07/06/2017Formatt ing of this note might be different from the original. Procedure: Transthoracic Echocardiogram Patient: NATALYA MCBRIDE(Age): [birth year]72y) Med Rec#: [id number] Sex: M Site Loc: [facility] [place] Ht / Wt: 173(cm)/86(kg) Pt. Loc: U BSA: 2 Study Date: 07/05/2017 Pt. Type: Inpatie nt Tape: Referring: Daphne Shahid ([id number]) Referring: MANDA ALCANTAR Reading: Blade Preston ([id number]) Black Top Spreader Machine Operator: Dayami Paula BA, [facility] Diagnosis: *ICD-10-PCS Non-ST elevation (NSTEMI) m yocardial [...] MV E-wave Vmax 0.8 m/sec MV deceleration [id number] msec MV A-wave Vmax 0.8 m/sec MV [...] Hypokinetic Mid-Posterolateral Hypokinetic Mid-Inferior Akinetic Mid-Inferoseptal Hypokinetic [place]-Septal Akinetic [place]-Anterior Hypokinetic [place]-Lateral Hypokinetic [place]-Inferior Akinetic [place]-Tip Akinetic This report has been electronically sign ed by: _ Blade Preston MD 07/06/2017 08:53:15 Images reviewed and interpretation verif ied [facility] Cardiac Ultrasound Laboratory Daphne Shahid MD ECHO ORDERABLES Differential, Automated (07/05/2017 4:55 PM EST) athologist Signature Neutrophils % 77.0 % [facility] LABORATORY Neutr Abs (ANC) 5.26 1.70 - [facility] 6.10 [facility] x10(3)[facility] Lymphocytes % 13.3 % [facility] Lymphocytes Abs 0.9 0.9 - 3.2 [facility] x10(3)/[facility] LABORATORY Monocytes % 8.2 % [facility] Monocyte Abs 0.6 0.3 - 0.9 [facility] x10(3)/[facility] LABORATORY Eosinophils % 0.7 % [facility] Eosinophils Abs 0.0 0.0 - 0.4 [facility] x10(3)[facility] LABORATORY Basophils % 0.4 % [facility] Basophils Abs 0.0 0.0 - 0.1 [facility] x10(3)/[facility] LABORATORY Immature Gran % 0.40 % [facility] Comment: Immature granulocytes(IG's)percentage an d absolute count will include metamyelocytes, myelocytes, and promyelo cytes. Blood smears from CBCs yielding IG's will be scanned manually for concor dance. If this scan disagrees with the automated IG or if promyelocytes are not ed, a manual differential will be performed. Melisa Gran Abs 0.03 0.00 - 0.04 x10(3)/[facility] LABORATORY Specimen Anatomical Collection Method Collection Time Receive d Time (Source) Location / / Volume Laterality Blood specimen 07/05/2017 4:55 PM 017 5:24 (specimen) EST PM EST Resulting Agency Comment Spec In Lab Daphne Shahid MD HEMATOLOGY ORDERABLES Performing Organization Address City/State/ZIP [place] [address] (ABNORMAL) Hemogram (07/05/2017 4:55 PM EST) Analysis Performed At Patho logist Time Signature WBC 6.8 4.0 - 9.5 [facility] x10(3)/[facility] LABORATORY RBC 4.67 4.58 - [place] 5.54 [facility] x10(6)/[facility] LABORATORY Hemoglobin 14.0 13.7 - [facility] 16.5 gm/dL [facility] LABORATORY Hematocrit 41.0 40.5 - [facility] RYAN 48.5 % [facility] LABORATORY MCV 87.8 82.9 - [facility] 93.1 [facility] LABORATORY MCH 30.0 27.5 - [place] 32.1 pg [facility] LABORATORY MCHC 34.1 32.0 - [place] 35.7 gm/dL [facility] LABORATORY Platelets 197 145 - 357 [facility] x[facility](3[facility] LABORATORY RDWSD 46.4 (H) 36.0 - [facility] R[facility] 45.0 [facility] LABORATORY RDWCV 14.5 (H) 11.4 - [facility] 13.8 % [facility] LABORATORY MPV 9.7 7.6 - 12.9 [facility] nRBC % Auto 0.0 % [facility] LABORATORY nRBC Abs Auto 0.000 0.000 - [facility] 0.000 [facility] x10(3)/[facility] LABORATORY Specimen Anatomical Collection Method Collection Time Receive d Time (Source) Location / / Volume Laterality Blood specimen 07/05/2017 4:55 PM 017 5:24 (specimen) EST PM EST Resulting Agency Comment Spec In Lab Daphne Shahid MD HEMATOLOGY ORDERABLES Performing Organization Address City/State/ZIP [place] [address] (ABNORMAL) Cardiac Enzymes (LEB/CGP) (07/05/2017 4:55 PM EST) P athologist Signature Troponin-T 1.69 (H) 0.00 - [place] 0.00 ng/mL [facility] LABORATORY Comment: The 99th percentile [...] additional sample may be indicated. Reference: Third Leicester Definition of Myocardial Infarction. Journal of the [place] College of Cardiology 2012;60:1581-98 CK, Total 191 0 - 200 unit/L [facility] LABORATORY Specimen Anatomical Collection Method Collection Time Receive d Time (Source) Location / / Volume Laterality Blood specimen 07/05/2017 4:55 PM 017 5:56 (specimen) EST PM EST Resulting Agency Comment Spec In Lab Daphne Shahid MD CHEMISTRY ORDERABLES Performing Organization Address City/State/ZIP Code Phon e Number [place] [phone] [address] Drive (ABNORMAL) pro-Brain Natriuretic Peptide (07/05/2017 4:55 PM EST) P athologist Signature ProBNP 1,598 (H) <=125 [facility] pg/mL [facility] LABORATORY Specimen Anatomical Collection Method Collection Time Receive d Time (Source) Location / / Volume Laterality Blood specimen 07/05/2017 4:55 PM 017 5:24 (specimen) EST PM EST Resulting Agency Comment Spec In Lab Daphne Shahid MD CHEMISTRY ORDERABLES Performing Organization Address City/State/ZIP Code Phon e Number [address] Magnesium (07/05/2017 4:55 PM EST) P athologist Signature Magnesium 0.78 0.69 - 1.07 [facility] mmol/L [facility] LABORATORY Specimen Anatomical Collection Method Collection Time Receive d Time (Source) Location / / Volume Laterality Blood specimen 07/05/2017 4:55 PM 017 5:24 (specimen) EST PM EST Resulting Agency Comment Spec In Lab Daphne Shahid MD CHEMISTRY ORDERABLES Performing Organization Address City/[facility]/[place] [address] (ABNORMAL) Basic Metabolic Panel (non-fasting) (07/05/2017 4:55 PM EST) P athologist Signature Glucose Lvl 230 (H) 65 - 199 [facility] mg/dL [facility] LABORATORY Comment: Diabetes: [...] or in patients with acute kidney failure. http://Breadtrip.SyncSum/DHnkdep http://Socialite/MCnkf Specimen Anatomical Collection Method Collection Time Receive d Time (Source) Location / / Volume Laterality Blood specimen 07/05/2017 4:55 PM 017 5:24 (specimen) EST PM EST Resulting Agency Comment Spec In Lab Daphne Shahid MD CHEMISTRY ORDERABLES Performing Organization Address City/[facility] Code Phon e Number [address] (ABNORMAL) APTT (07/05/2017 4:55 [...] MD HEMATOLOGY ORDERABLES Performing Organization Address City/[facility] [place] [address] (ABNORMAL) POCT Glucose (07/05/2017 4:53 PM EST) P athologist Signature POC Glucose 208 (H) 65 - 199 [facility] mg/dL [facility] LABORATORY Comment: Supplemental ranges: <140 mg/dL before meals <180 mg/dL all other times of the day Specimen Anatomical Collection Method Collection Time Receive d Time (Source) Location / / Volume Laterality Blood specimen 07/05/2017 4:53 PM 017 4:53 (specimen) EST PM EST Daphne Shahid MD POINT OF CARE TEST ORDERABLE S Performing Organization Address City/State/ZIP Code Phon e Number [place] [phone]OS[address] Drive EKG 12 Lead (07/05/2017 4:32 PM EST) Component Value Ref Range Test Analysis Performed Pathologis t Method Time At Signature Ventricular rate 97 BPM MUSE SYSTEM Atrial Rate 97 BPM MUSE SYSTEM P-R Interval 148 ms MUSE SYSTEM QRS Duration 96 ms MUSE SYSTEM Q-T Interval 364 ms MUSE SYSTEM QTC Calculated 462 ms MUSE SYSTEM (Bezet) Calculated P [place] 48 degrees MUSE SYSTEM Calculated R [place] -33 degrees MUSE SYSTEM Calculated T [place] 98 degrees MUSE SYSTEM INTERPRETATION Normal sinus [...] Coronary atherosclerosis of unspecified type of vessel, salam[place]of or graft Cardiomyopathy, ischemic Other specified forms [...] post-op day 1 in the AM Give VA if unable to take PO, Routine Given [...] in dextrose 5% 250 mL EST infusion (BOW STAPLER) CONTINUOUS PRN, Starting on Wed07/05/17 at 1837, [...] post-op day 1 in the AM Give VA if unable to take PO, Routine atorvastatin [...] RN) 0125 (New Bag - Provider: Ale Ranegl, VAMSI)0155 (Stopped - Provider: Ale Rangel, RN)0901 [...] post-op day 1 in the AM Give VA if unable to take PO
Routine Group [...]
Routine documented in this encounter Care Teams Transportation Security Screener Relationship Specialty Start Date End Date Lovely Vicente MD PCP - General 04/16/[address] [place] [address] [address] [place] [address] documented as of this encounter
--- OUTSIDE RECORDS SUMMARY | 2022-04-29 08:19 | XMS_ITS | Encounter Summary ---
:1945 Author Organization [facility] [place] [address] Care Team Providers Name Role Phone Lovely Vicente MD Primary Care Provider Reason for Visit Reason Comments Follow-up Encounter Details Date Type Department Care Team Description 06/03/2017 Office Visit Dermatology at [facility] benign nevi; Abdelrahman HOOPER MD History of melanoma; [address] [facility] History of dysplastic nevus; [place] [address] Skin exam for malignant neoplasm [phone] [facility] [place], [place] [address] Social History Tobacco Use [...] Zulma Dolan MD [facility] [place], [place] [address] (Wo rk) 05/28/2022 Laboratory Appointment Lab 05/28/2022 Office Visit Cardiology Zulma Dolan MD [facility] [place] [address] Liz Poole PA [facility] [place] [address] 06/10/2022 Office Visit Dermatology Laura Scherer MD [facility] [address], [place] [address] (Wo rk) documented as [...] skin documented in this encounter Care Teams Marketing Rep Relationship Specialty Start Date End Date Lovely Vicente MD PCP - General 04/16/15 [facility] [address] [place] [address] documented as of this encounter
--- OUTSIDE RECORDS SUMMARY | 2022-04-29 08:19 | XMS_ITS | Encounter Summary ---
:1945 Author Organization [facility] Address [facility] [place] [address] Care Team Providers Name Role Phone Lovely Vicente MD Primary Care Provider Reason for Visit Reason Comments Skin Check Encounter Details Date Type Department Care Team Description 11/05/2015 Office Visit Dermatology at [facility] benign nevi; Abdelrahman HOOPER MD Lentigines; [address] [facility] History of melanoma; [place] [phone] Skin exam for malignant neoplasm [phone] [facility] [place], [place] [address] Social History Tobacco Use Types [...] Diagnostic, Drum (ACCU-CHEK COMPACT TEST) Strip by [facility].(Non- Drug; Combo Route) [...] the presence of Dr. Garcia.: GINNY CHRISTIANSEN MECHANICAL DESIGN ENGINEER FACILITIES and Judit Cruz, Clinical Scribe I performed the above scribed service and agree with the accuracy of the documentation in this encounter. Rigoberto Garcia MD Section of Dermatology [facility] documented in this encounter Plan of Treatment Upcoming Encounters Date Type Specialty Care Team Description 05/28/2022 Appointment Cardiology Zulma Dolan MD [facility] [address] [place] [address] (Wo rk) 05/28/2022 Laboratory Appointment Lab 05/28/2022 Office Visit Cardiology Zulma Dolan MD [facility] [place] [address] [facility] [place] [address] 06/10/2022 Office Visit Dermatology Laura Scherer MD [facility] [address], [place] [address] (Wo rk) documented as of this encounter Visit Diagnoses Diagnosis Multiple benign nevi Benign neoplasm of skin, site unspecifie d Lentigines Other dyschromia History of melanoma Personal history of malignant melanoma o f skin Skin exam for malignant neoplasm Screening for malignant neoplasm of the skin documented in this encounter Care Teams Web Press Roll Tender Relationship Specialty Start Date End Date Lovely Vicente MD PCP - General 04/16/15 [facility] [address] [place] [address] (work) documented as of this encounter
--- OUTSIDE RECORDS SUMMARY | 2022-04-29 08:19 | XMS_ITS | Encounter Summary ---
:1945 Author Organization [facility] [place] [address] Care Team Providers Name Role Phone Som Holliday APRN Primary Care Provider Encounter Details Date Type Department Care Team Description 04/11/2014 Procedure visit Gastroenterology at [facility], CONV Esophageal reflux [facility] Luz Winchester RN (Primary Dx) [place] [address] Social History Tobacco Use Types Packs/Day Years Used Date Former Smoker Alcohol Use Standard Drinks/Week Comments No 0 (1 standard drink = 0.6 oz pure alcoho l) Sex Assigned at Date Recorded Not on file documented as of this encounter Progress Notes Adalid Can MD - 04/13/2014 3:43 PM EDT ESOPHAGEAL MANOMETRY Don Fatima Male, 69 yrs, 1945 PCP: SOM HOLLIDAY CARD BOXER: NONE STUDY DATE: 04/11/14 PROVIDER: Adalid [place], [place] ([id number]) INDICATION Reflux; preoperative evaluation. METHODS Stationary esophageal manometry was performed with the Infor esophageal motility system utilizing the Polygram software [...] of the esophagus. Adalid Can, PhD, MD tentmaker, [facility] [employer] Section of Gastroenterology and Hepatology [facility] [place] [address] V: [phone] F: [phone] [facility]/gabriela CC/EC: PCP - staff msg copy 04/13/14 Henrique Taylor MD - fax copy 04/13/14 Luz Keller RN - 04/11/2014 8:14 AM EDT Esophageal manometry performed without difficulty and Was well tolerated. documented in this encounter Plan of Treatment Upcoming Encounters Date Type Specialty Care Team Description 05/28/2022 Appointment Cardiology Zulma Dolan MD [facility] [place], [place] [address] (Wo rk) 05/28/2022 Laboratory Appointment Lab 05/28/2022 Office Visit Cardiology Zulma Dolan MD [facility] [place] [id number] Liz Poole PA [facility] [place] [address] 06/10/2022 Office Visit Dermatology Laura Scherer MD [facility] DR TE[address]MAT [place], [place] [address] (Wo rk) documented as of this encounter Visit Diagnoses Diagnosis Esophageal reflux - Primary documented in this encounter Care Teams Overnight Stocker Relationship Specialty Start Date End Date Som Holliday APRN PCP - General 01/25/13 04/15/[address] [place] [address] documented as of this encounter
--- OUTSIDE RECORDS SUMMARY | 2022-04-29 08:19 | XMS_ITS | Encounter Summary ---
:1945 [place] [address] Care Team Providers Name Role Phone Lovely Vicente MD Primary Care Provider Reason for Visit Reason Onset Date Comments Other 12/09/2016 RESULTS Encounter Details Date Type Department Care Team Description 12/09/2016 Telephone Dermatology [facility] Halima Cadet MD Other (RESULTS) [address] [facility] [place] [address] [facility] [phone] [place], [place] [address] (Wo rk) Social History Tobacco [...] EDT Spoke with patient's , Kisha (personal union contract representative). I advised her Don's pathology results [...] back. She can be reached back at [phone] documented in this encounter Plan of Treatment Upcoming Encounters Date Type Specialty Care Team Description 05/28/2022 Appointment Cardiology Zulma Dolan MD [facility] [place], [place] [address] (Wo rk) 05/28/2022 Laboratory Appointment Lab 05/28/2022 Office Visit Cardiology Zulma Dolan MD [facility] [place] [address] Liz Poole PA [facility] [place] [address] 06/10/2022 Office Visit Dermatology Laura Scherer MD [facility] [address] [place], [place] [address] (Wo rk) documented as of this encounter Visit Diagnoses Not on filedocumented in this encounter Care Teams Public Aid Eligibility Assistant Relationship Specialty Start Date End Date Lovely Vicente MD PCP - General 04/16/[address] [place] [address] documented as of this encounter
--- OUTSIDE RECORDS SUMMARY | 2022-04-29 08:19 | XMS_ITS | Encounter Summary ---
:1945 Author Organization [facility] [place] [address] Care Team Providers Name Role Phone Angela Holliday APRN Primary Care Provider Reason for Visit Reason Comments Other Encounter Details Date Type Department Care Team Description 08/01/2013 Telephone Dermatology at [facility] Rigoberto Garcia III, [address] [place] [address] [facility] [phone] [address] MARIE[address] [place], [place] [address] (Wo rk) Social History Tobacco [...] them. Component Value Surgical Pathology Final Report [facility] Provider: RIGOBERTO GARCIA III Pt. Name: DON HOANG Acc #: [id number] Pt. Col Date: 07/31/2013 /Sex: 1945,(68 years),Male Rec Date: 07/31/2013 LOC: [facility] SURGICAL PATHOLOGY ---Pathologic Diagnosis--- Skin, [...] Cardiology Zulma Dolan MD [facility] [place], [place] [address] (Wo lissa) 05/28/2022 Laboratory Appointment Lab 05/28/2022 Office Visit Cardiology Zulma Dolan MD [facility] [place] [address] Liz Poole PA [facility] [place] [address] 06/10/2022 Office Visit Dermatology Laura Scherer MD [facility] [address] TEJA MARIE[address] [place], [place] [address] (Wo rk) documented as of this encounter Visit Diagnoses Not on filedocumented in this encounter Care Teams Machinist 2Nd Shift Relationship Specialty Start Date End Date Angela Holliday APRN PCP - General 01/25/13 04/15/[address] [place] [address] documented as of this encounter
--- OUTSIDE RECORDS SUMMARY | 2022-04-29 08:19 | XMS_ITS | Encounter Summary ---
:1945 Author Organization [facility] [place] [address] Care Team Providers Name Role Phone Lovely Vicente MD Primary Care Provider Reason for Visit Reason Onset Date Comments Medication Refill 12/24/2016 Encounter Details Date Type Department Care Team Description 12/24/2016 Refill Endocrinology at [facility] Luz Stallings MD [facility] [place] [address] ENDOCRINOLOGY DEPT [phone] [place], [place] [address] (Wo rk) Social History Tobacco [...] Zulma Dolan MD [facility] [place] [address] (Wo rk) 05/28/2022 Laboratory Appointment Lab 05/28/2022 Office Visit Cardiology Zulma Doaln [place] [address] Liz Poole PA [facility] [place] [address] 06/10/2022 Office Visit Dermatology Laura Scherer MD [facility] [address] [place], [place] [address] (Wo rk) documented as of this encounter Visit Diagnoses Not on filedocumented in this encounter Care Teams Bush Hog Operator Relationship Specialty Start Date End Date Lovely Vicente MD PCP - General 04/16/[address] [place], [place] [address] documented as of this encounter
--- OUTSIDE RECORDS SUMMARY | 2022-04-29 08:19 | XMS_ITS | Encounter Summary ---
:1945 Author Organization [facility] [place] [address] Care Team Providers Name Role Phone MiyaAngela STACIE Primary Care Provider Reason for Visit Reason Comments Urinary Retention Encounter Details Date Type Department Care Team Description 05/16/2013 Follow-Up Urology at [facility] Blade Smith, Retention of urine [facility] (Primary Dx) [place] [address] UROLOGY DEPT [place] [address] (Wo rk) Social History Tobacco Use Types [...] Dolan MD 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
--- OUTSIDE RECORDS SUMMARY | 2022-04-29 08:20 | XMS_ITS | Encounter Summary ---
:1945 Author Organization [facility] [place] [address] Care Team Providers Name Role Phone Angela Holliday APRN Primary Care Provider Reason for Visit Reason Onset Date Comments Other 03/30/2013 blood in catheter ba g Encounter Details Date Type Department Care Team Description 03/30/2013 Telephone General Surgery at [facility] Janneth Sharma, Other (blood in [facility] RN catheter bag) [place] [address] Social History Tobacco Use Types Packs/Day [...] Zulma Dolan MD [facility] [place], [place] [address] (Wo rk) 05/28/2022 Laboratory Appointment Lab 05/28/2022 Office Visit Cardiology Zulma Dolan MD [facility] [place] [address] Liz Poole PA [facility] [place] [address] 06/10/2022 Office Visit Dermatology Laura Scherer MD [facility] [address] [place], [place] [address] (Wo rk) documented as of this encounter Visit Diagnoses Not on filedocumented in this encounter Care Teams Salt Cutter Relationship Specialty Start Date End Date Angela Holliday APRN PCP - General 01/25/13 04/15/[address] [place] [address] documented as of this encounter
--- OUTSIDE RECORDS SUMMARY | 2022-04-29 08:20 | XMS_ITS | Encounter Summary ---
:1945 [place] [address] Care Team Providers Name Role Phone Holley Hollidayica STACIE Primary Care Provider Encounter Details Date Type Department Care Team Description 03/28/2013 - Hospital [facility] (Primary 03/29/2013 Barbara Gomes MD Dx) [facility] DR Siddiqui [place] [address] [phone] Social History Tobacco Use Types Packs/Day Years [...] please call the General Surgery nurse at [phone], since this may mean that you need morecalcium. Follow-up Appointment: Will be scheduled with Dr. Mcknight in 6 weeks Date and time as well as any required labs will be mailed to you Please call [phone] to confirm date and time of your [...] by calcium supplementation. Phone number for questions: [phone] before 5 PM weekdays [phone] after 5 PM and on weekends/holidays Please [...] 03/2904/30/2014 137 mcg tablet mouth every morning. CA CITRATE/MGOX/VIT Take by mouth. 0 1 [...] (VITAMIN D) 1,000 mouth daily. unit Cap metoprolol-hydrochlorothi Take 1 tablet by 0 06/05/2015 azide (LOPRESSOR HCT) mouth 2 times daily. 50-25 mg per tablet omeprazole (PRILOSEC) 20 Take 20 mg by mouth 0 06/05/2015 mg capsule daily. glyBURIDE (DIABETA) 5 mg 5MG = 1 Tablet(s), 0 06/05/2015 tablet PO, Once daily OXYcodone (ROXICODONE) 5 Take 1-2 tablets by 30 tablet 0 05/16/2013 mg immediate release mouth every 4 hours tablet as needed for Pain. rOPINIRole (REQUIP) 2 mg Take 2 mg by mouth 0 05/16/2013 tablet nightly. AMLODIPINE BESYLATE Take by mouth daily. 0 04/05/2013 (AMLODIPINE ORAL) clobetasol (TEMOVATE) Apply twice daily 50 mL 1 013 04/26/2014 0.05 % external for 2 weeks then on solutionIndications: weekends for Psoriasis psoriasis fluocinolone acetonide Twice daily to less 60 mL 2 09/2308/16/2017 (SYNALAR) 0.01 % external severe areas of solutionIndications: psoriasis Psoriasis documented as of this encounter Progress [...] a 68 y.o. male presents to [facility] today for total thyroidectomy. See full [...] Operative Note Patient Name: Gregory Fatima : [id number] MR#: [id number] Case Date: 03/28/2013 Surgeon: Surgeon(s) and Role: * Mesha Mcknight MD - Primary * Henrique Wilalms MD - Resident-Surgeon Chief Preoperative diagnosis: MNG [...] was extubated and taken to the [facility] in stable condition. At the end [...] Operative Note Patient Name: Gregory Fatima : [id number] MR#: [id number] Case Date: 03/28/2013 Surgeon: Surgeon(s) and Role: [...] Dolan MD [facility] er Dr [place] [address] (Wo rk) 05/28/2022 Laboratory Appointment Lab 05/28/2022 Office Visit Cardiology Zulma Dolan MD [facility] [place] [address] Liz Poole PA [facility] [place] [address] 06/10/2022 Office Visit Dermatology Laura Scherer MD [facility] ER DR TEJA GR[address]MAT [place] [address] (Wo rk) documented as of this encounter [...] Address City/State/[place] [address] CERNER MILLENNIUM (ABNORMAL) POCT [...] Address City/[facility]/[place] [address] CERNER MILLENNIUM (ABNORMAL) POCT [...] Address City/[facility]/ZIP Code Phon e Number [address] CERNER MILLENNIUM (ABNORMAL) [...] Address City/[facility]/ZIP Code Phon e Number [address] CERNER MILLENNIUM (ABNORMAL) [...] Address City/[facility]/ZIP Code Phon e Number [address] CERNER MILLENNIUM (ABNORMAL) [...] Address City/[facility]/ZIP Code Phon e Number [address] CERNER MILLENNIUM (ABNORMAL) [...] Address City/[facility]/ZIP Code Phon e Number [address] CERNER MILLENNIUM (ABNORMAL) [...] Address City/[facility]/ZIP Code Phon e Number [address] [facility] Specimen to Pathology (surgical or derm) [...] Address City/[facility]/ZIP Code Phon e Number [address] [facility] Pathology Addendum Report (03/28/2013 12:03 PM EDT) Component Value Ref Test Analysis Performed At [facility] gist Range Method Time Signature Addendum CERNER Report ? [facility] ? Provider: ?? MESHA MCKNIGHT Pt. Name: ?? GREGORY FATIMA ? Acc #: ?[id number] ?Pt. MRN: ?[id number] ? Col Date: ?? 03/28/2013 ?/Sex: ?1945,(68 [...] Address City/State/[place] [address] [facility] Surgical Pathology Report (03/28/2013 12:03 PM EDT) Component Value Ref Test Analysis Performed At [facility] gist Range Method Time Signature Surgical [facility] Pathology ? [facility] Report ? Provider: ?? MESHA MCKNIGHT Pt. Name: ?? GREGORY FATIMA ? Acc #: ?[id number] ?Pt. MRN: ?[id number] ? Col Date: ?? 03/28/2013 ?/Sex: ?1945,(68 [...] areas of hemorrhage and ? calcifications. ? [facility] ? Provider: ?? MESHA MCKNIGHT Pt. Name: ?? GREGORY FATIMA ? Acc #: ?[id number] ?Pt. MRN: ?[id number] ? Col Date: ?? 03/28/2013 ?/Sex: ?1945,(68 years),Male ? Rec Date: ?? 03/28/2013 ?LOC: ?[facility] ? SURGICAL PATHOLOGY ? SECTIONS/PROCESSING: Client Program Manager sections are subm itted. (R6) ? [...] Address City/State/[place] [address] CERNER MILLENNIUM Frozen Section Report (03/28/2013 12:03 PM EDT) Component Value Ref Test Analysis Performed At [facility] gist Range Method Time Signature Frozen CERNER Section ? [facility] Report ? Provider: ?? MESHA MCKNIGHT Pt. Name: ?? GREGORY FATIMA ? Acc #: ?[id number] ?Pt. MRN: ?[id number] ? Col Date: ?? 03/28/2013 ?/Sex: ?1945,(68 [...] Address City/[facility]/[place] [address] CERNER MILLENNIUM POCT Glucose [...] Address City/[facility]/ZIP Code Phon e Number [address] CERNER MILLENNIUM Specimen to [...] Address City/[facility]/[place] [address] CERNER MILLENNIUM Antibody screen (03/28/2013 9:37 AM EDT) Analysis Performed At Patho logist Time Signature Ab Screen Negative CERNER Interp MILLENNIUM Expires at [id number] CERNER 162 on: MILLENNIUM Specimen Anatomical Collection Method Collection Time Receive d Time (Source) Location / / Volume Laterality Blood specimen 03/28/2013 9:37 AM 013 9:37 (specimen) EDT AM EDT Resulting Agency Comment Spec In Lab Mesha Mcknight MD BLOOD BANK ORDERABLES Performing Organization Address City/[facility]/[place] [address] [facility] GRISELDAENNIUM ABO/Rh Typing (03/28/2013 9:37 AM EDT) athologist Signature ABORh Type O Pos [facility] Specimen Anatomical Collection Method Collection Time Receive d Time (Source) Location / / Volume Laterality Blood specimen 03/28/2013 9:37 AM 013 9:37 (specimen) EDT AM EDT Resulting Agency Comment Spec In Lab Mesha Mcknight MD BLOOD BANK ORDERABLES Performing Organization Address City/[facility]/ZIP Code Phon e Number [address] [facility] Differential, Automated (03/28/2013 9:34 [...] Organization Address City/State/ZIP Code Phon e Number [place] [id number] [address] CERNER MILLENNIUM (ABNORMAL) Basic [...] Address City/State/[place] [address] CERNER MILLENNIUM (ABNORMAL) CBC [...] - 12.0 CERNER fL [facility] CLEBURNEENNIUM Specimen Anatomical Collection Method Collection Time Receive d Time (Source) Location / / Volume Laterality Blood specimen 03/28/2013 9:34 AM 013 9:38 (specimen) EDT AM EDT Resulting Agency Comment Spec In Lab Mesha Mcknight MD HEMATOLOGY ORDERABLES Performing Organization Address City/[facility]/ZIP Code Phon e Number [address] [facility] POCT Glucose (03/28/2013 9:17 AM EDT) athologist Signature POC Glucose 108 60 - 199 CERNER mg/dL [facility] Comment: Supplemental ranges: <110 mg/dL before meals <200 mg/dL all other times of the day Specimen Anatomical Collection Method Collection Time Receive d Time (Source) Location / / Volume Laterality Blood specimen 03/28/2013 9:17 AM 013 9:17 (specimen) EDT AM EDT Mesha Mcknight MD POINT OF CARE TEST ORDERABLE S Performing Organization Address City/[facility]/ZIP Code Phon e Number [address] [facility] Specimen to Pathology (surgical or derm) (03/28/2013 8:55 AM EDT) Specimen Anatomical Collection Method Collection Time Receive d Time (Source) Location / / Volume Laterality AP Specimen 03/28/2013 8:55 AM 3 8:54 EDT AM EDT Narrative [facility] GRISELDAENNIUM - 03/28/2013 8:55 AM E DT Specimen requisition ordered. ??Separate Pathology report to follow Mesha Mcknight MD PATHOLOGY/CYTOLOGY ORDERABLE S Performing Organization Address City/[facility]/ZIP Code Phon e Number [address] [facility] documented in this encounter Visit Diagnoses Diagnosis [...] - Provider: Radha Yao [facility], RN) 2.5 mg, Oral, DAILY, First [...] override documented in this encounter Care Teams Sewer Cleaner Relationship Specialty Start Date End Date Angela Holliday APRN PCP - General 01/25/13 04/15/15 [address] [place] [address] documented as of this encounter
--- OUTSIDE RECORDS SUMMARY | 2022-04-29 08:20 | XMS_ITS | Encounter Summary ---
:1945 Author Organization [facility] Address [facility] [place] [address] Care Team Providers Name Role Phone Unknown Primary Care Provider Unavailable Reason for Visit Reason Comments Skin Check Encounter Details Date Type Department Care Team Description 10/04/2012 Follow-Up Dermatology at Rig[facility] Forman soriasis (Primary Dx); Abdelrahman HOOPER MD Neoplasm of unspecified nature of bone, soft tissue, and skin; [address] [facility] Skin lesion of chest wall; [place] [address] Seborrheic psoriasis- scalp and ingtergl uteal area [phone] [facility] [place], [place] [address] (Wo rk) Social History [...] changes: Rigoberto Albarran MD Section of Dermatology [facility] documented in this encounter Plan of Treatment Upcoming Encounters Date Type Specialty Care Team Description 05/28/2022 Appointment Cardiology Zulma Dolan MD [facility] [address] [place], [place] [address] (Wo rk) 05/28/2022 Laboratory Appointment Lab 05/28/2022 Office Visit Cardiology Zulma Dolan MD [facility] [place] [address] Liz Poole PA [facility] [place] [address] 06/10/2022 Office Visit Dermatology Laura Scherer MD [facility] DR [address] GR[address]MAT [place], [place] [address] (Wo rk) documented as [...] Component Value Ref Test Analysis Performed At [facility] gist Range Method Time Signature Surgical CERNER Pathology ? [facility] Report ? Provider: ?? RIGOBERTO ALBARRAN III Pt. Name: ?? DON HOANG ?A ? Acc #: ?[id number] ? Pt. ? Col Date: ?? 3 [...] [facility]/ZIP Code Phon e Number [address] [facility] Specimen to Pathology (NON-OR) (10/04/2012 9:55 AM EDT) Specimen Anatomical Collection Method Collection Time Receive d Time (Source) Location / / Volume Laterality AP Specimen 10/04/2012 9:55 AM 201 3 9:56 EDT AM EDT Narrative [facility] MARYVALENER MILLENNIUM - 10/04/2012 9:56 AM E DT Specimen requisition ordered. ??Separate Pathology report to follow Rigoberto Albarran III, MD PATHOLOGY/CYTOLOGY ORDERABLE S Performing Organization Address City/[facility]/ZIP Code Phon e Number [address] [facility] documented in this encounter Visit Diagnoses Diagnosis Psoriasis - Primary Other psoriasis Neoplasm of unspecified nature of bone, soft tissue, and skin Skin lesion of chest wall Unspecified disorder of skin and subcuta neous tissue Seborrheic psoriasis- scalp and ingtergl uteal area Other psoriasis documented in this encounter Care Teams Braider Setter Relationship Specialty Start Date End Date Unknown PCP - General 10/04/12 01/24/13 None documented as of this encounter
--- OUTSIDE RECORDS SUMMARY | 2022-04-29 08:20 | XMS_ITS | Encounter Summary ---
:1945 Author Organization [facility] [place] [place] [address] Care Team Providers Name Role Phone Angela Holliday APRN Primary Care Provider Encounter Details Date Type Department Care Team Description 03/28/2013 Surgery Main Operating Room Mesha Mcknight, THYROIDECTOMY, [facility] 15.[facility] [place]idd[place] [address] [place] [address] [phone] (Wo rk) Social History Tobacco Use Types [...] please call the General Surgery nurse at [phone], since this may mean that you need morecalcium. Follow-up Appointment: Will be scheduled with Dr. Mcknight in 6 weeks Date and time as well as any required labs will be mailed to you Please call [phone] to confirm date and time of your [...] by calcium supplementation. Phone number for questions: [phone] before 5 PM weekdays [phone] after 5 PM and on weekends/holidays Please follow up with Urology as per their recommendations for Bob removal AttachmentsThe following attachments cannot be sent through Care Everywhere. THYROIDECTOMY: WHAT TO EXPECT AT HOME (WELSH)URINARY CATHETER CARE: AFTER YOUR VISIT (WELSH)documented in this encounter Medications at Time of [...] is a 68 y.o. male presents to [facility] today for total thyroidectomy. See full Consult [...] Willams MD - 03/28/2013 3:43 PM EDT [facility] Operative Note Patient Name: Gregory Fatima : [id number] MR#: [id number] Case Date: 03/28/2013 Surgeon: Surgeon(s) and Role: [...] patient was extubated and taken to the [facility] in stable condition. At the end ofthe [...] Operative Note Patient Name: Gregory Fatima : [id number] MR#: [id number] Case Date: 03/28/2013 Surgeon: Surgeon(s) and Role: [...] Dolan MD [facility] er Dr [place] [address] (Wo rk) 05/28/2022 Laboratory Appointment Lab 05/28/2022 Office Visit Cardiology Zulma Dolan MD [facility] INA [place] [address] Liz Poole PA [facility] [place] [address] 06/10/2022 Office Visit Dermatology Laura Scherer MD [facility] ER DR TEJA GR-DERMAT [place] [address] (Wo rk) documented as of this encounter [...] City/State/[place] [address] CERNER MILLENNIUM (ABNORMAL) POCT [...] [facility] [place]/[place]IP [place] [address] CERNER MILLENNIUM (ABNORMAL) POCT [...] [facility] [place]/ZIP Code Phon e Number [address] CERNER MILLENNIUM (ABNORMAL) POCT [...] [facility] [place]/ZIP Code Phon e Number [address] CERNER MILLENNIUM (ABNORMAL) POCT [...] [facility] [place]/ZIP Code Phon e Number [address] CERNER MILLENNIUM (ABNORMAL) POCT [...] [facility] [place]/ZIP Code Phon e Number [address] CERNER MILLENNIUM (ABNORMAL) POCT [...] [facility] [place]/ZIP Code Phon e Number [address] CERNER MILLENNIUM (ABNORMAL) POCT [...] [facility] [place]/ZIP Code Phon e Number [address] [facility] Specimen to Pathology (surgical or derm) [...] [facility] [place]/ZIP Code Phon e Number [address] [facility] Pathology Addendum Report (03/28/2013 12:03 PM EDT) Component Value Ref Test Analysis Performed At [facility] gist Range Method Time Signature Addendum CERNER Report ? [facility] ? Provider: ?? MESHA MCKNIGHT Pt. Name: ?? GREGORY FATIMA ? Acc #: ?[id number] ?Pt. MRN: ?[id number] ? Col Date: ?? 03/28/2013 ?/Sex: ?1945,(68 [...] Organization Address City/State/[place] [address] [facility] Surgical Pathology Report (03/28/2013 12:03 PM EDT) Component Value Ref Test Analysis Performed At [facility] gist Range Method Time Signature Surgical [facility] Pathology ? [facility] Report ? Provider: ?? MESHA MCKNIGHT Pt. Name: ?? GREGORY FATIMA ? Acc #: ?[id number] ?Pt. MRN: ?[id number] ? Col Date: ?? 03/28/2013 ?/Sex: ?1945,(68 [...] Name: ?? GREGORY FATIMA ? Acc #: ?[id number] ?Pt. MRN: ?[id number] ? Col Date: ?? 03/28/2013 ?/Sex: ?1945,(68 years),Male ? Rec Date: ?? 03/28/2013 ?LOC: ?[facility] ? SURGICAL PATHOLOGY ? SECTIONS/PROCESSING: Enrollment Coordinator sections are subm itted. (R6) ? B [...] Organization Address City/State/[place] [address] CERNER MILLENNIUM Frozen Section Report (03/28/2013 12:03 PM EDT) Component Value Ref Test Analysis Performed At [facility] gist Range Method Time Signature Frozen CERNER Section ? [facility] Report ? Provider: ?? MESHA MCKNIGHT Pt. Name: ?? GREGORY FATIMA ? Acc #: ?[id number] ?Pt. MRN: ?[id number] ? Col Date: ?? 03/28/2013 ?/Sex: ?1945,(68 [...] [facility]/[place] [address] CERNER MILLENNIUM POCT Glucose [...] (specimen) PM EDT 12:00 PM EDT Mesha cMknight MD POINT OF CARE TEST ORDERABLE S Performing Organization Address City/[facility]/ZIP Code Phon e Number [address] CERNER MILLENNIUM Specimen to [...] [facility] [place]/[place] [address] CERNER MILLENNIUM Antibody screen (03/28/2013 9:37 AM EDT) Analysis Performed At Patho logist Time Signature Ab Screen Negative CERNER Interp MILLENNIUM Expires at [id number] CERNER 920 on: MILLENNIUM Specimen Anatomical Collection Method Collection Time Receive d Time (Source) Location / / Volume Laterality Blood specimen 03/28/2013 9:37 AM 013 9:37 (specimen) EDT AM EDT Resulting Agency Comment Spec In Lab Mesha Mcknight MD BLOOD BANK ORDERABLES Performing Organization Address City/[facility]/[place] [address] [facility] GRISELDAENNIUM ABO/Rh Typing (03/28/2013 9:37 AM EDT) athologist Signature ABORh Type O Pos [facility] Specimen Anatomical Collection Method Collection Time Receive d Time (Source) Location / / Volume Laterality Blood specimen 03/28/2013 9:37 AM 013 9:37 (specimen) EDT AM EDT Resulting Agency Comment Spec In Lab Mesha Mcknight MD BLOOD BANK ORDERABLES Performing Organization Address City/[facility]/ZIP Code Phon e Number [address] [facility] Differential, Automated (03/28/2013 9:34 AM [...] City/State/ZIP Code Phon e Number [place] [phone] CERNER MILLENNIUM (ABNORMAL) Basic [...] intervals supplied above were not validated at [facility]. Results from pediatri c [...] Organization Address City/State/[place] [address] CERNER MILLENNIUM (ABNORMAL) CBC [...] MPV 9.3 9.0 - 12.0 CERNER fL [facility] Specimen Anatomical Collection Method Collection Time Receive d Time (Source) Location / / Volume Laterality Blood specimen 03/28/2013 9:34 AM 013 9:38 (specimen) EDT AM EDT Resulting Agency Comment Spec In Lab Mesha Mcknight MD HEMATOLOGY ORDERABLES Performing Organization Address City/[facility]/ZIP Code Phon e Number [address] [facility] POCT Glucose (03/28/2013 9:17 AM [...] [facility] [place]/ZIP Code Phon e Number [address] [facility] Specimen to Pathology (surgical or derm) (03/28/2013 8:55 AM EDT) Specimen Anatomical Collection Method Collection Time Receive d Time (Source) Location / / Volume Laterality AP Specimen 03/28/2013 8:55 AM 3 8:54 EDT AM EDT Narrative [facility] GRISELDAENNIUM - 03/28/2013 8:55 AM E DT Specimen requisition ordered. ??Separate Pathology report to follow Mesha Mcknight MD PATHOLOGY/CYTOLOGY ORDERABLE S Performing Organization Address City/[facility]/ZIP Code Phon e Number [address] RAKESH WALKER documented in [...] RN) 0900 (Given - Provider: Radha Yao [facility], [facility]) 2.5 mg, Oral, [...] override documented in this encounter Care Teams Atomic Fuel Assembler Relationship Specialty Start Date End Date Angela Holliday APRN PCP - General 01/25/13 04/15/15 [address] [place] [address] documented as of this encounter
--- OUTSIDE RECORDS SUMMARY | 2022-04-29 08:20 | XMS_ITS | Encounter Summary ---
:1945 Author Organization [facility] [place] [address] Care Team Providers Name Role Phone MiyaAngela STACIE Primary Care Provider Reason for Visit Reason Onset Date Comments Advice Only 03/31/2013 Encounter Details Date Type Department Care Team Description 03/31/2013 Telephone Urology at [facility] Daniele Trejo III, MD Advice Only [facility] [place] [address] [place] [id number] [phone] (Wo rk) Social History Tobacco Use Types [...] Zulma Dolan MD [facility] [place], [place] [address] (Wo rk) 05/28/2022 Laboratory Appointment Lab 05/28/2022 Office Visit Cardiology Zulma Dolan MD [facility] [place] [address] Liz Poole PA [facility] [place] [address] 06/10/2022 Office Visit Dermatology Laura Scherer MD [facility] DR TEJA GR-DERMAT [place], [place] [address] (Wo rk) documented as of this encounter Visit Diagnoses Not on filedocumented in this encounter Care Teams Quality Assurance Analyst Relationship Specialty Start Date End Date Angela Holliday APRN PCP - General 01/25/13 04/15/[address] [place] [address] documented as of this encounter
--- OUTSIDE RECORDS SUMMARY | 2022-04-29 08:20 | XMS_ITS | Encounter Summary ---
:1945 Author Organization [facility] [place] [address] Care Team Providers Name Role Phone MiyaLokeshAngela STACIE Primary Care Provider Reason for Visit Reason Onset Date Comments Post-op Problem 04/05/2013 voiding trial Encounter Details Date Type Department Care Team Description 04/05/2013 Telephone Urology at [facility] Blade Smith, Post-op Problem [facility] (voiding trial) [place] [address] UROLOGY DEPT [place] [phone] (Wo rk) Social History Tobacco Use Types [...] MD [facility] Dr [place], [place] [address] (Wo rk) 05/28/2022 Laboratory Appointment Lab 05/28/2022 Office Visit Cardiology Zulma Dolan MD [facility] [place] [address] Liz Poole PA [facility] [place] [address] 06/10/2022 Office Visit Dermatology Laura Scherer MD [facility] DR TEJA GR-DERMAT [place], [place] [address] (Wo rk) documented as of this encounter Visit Diagnoses Not on filedocumented in this encounter Care Teams Digital Content Marketing Manager Relationship Specialty Start Date End Date Angela Holliday APRN PCP - General 01/25/13 04/15/[address] [place] [address] documented as of this encounter
--- OUTSIDE RECORDS SUMMARY | 2022-04-29 08:20 | XMS_ITS | Encounter Summary ---
:1945 Author Organization [facility] [place] [address] Care Team Providers Name Role Phone Angela Holliday APRN Primary Care Provider Encounter Details Date Type Department Care Team Description 03/30/2013 Telephone General [facility] Cliff Nevarez, [place] [address] Social History Tobacco Use Types Packs/Day [...] Dolan MD [facility] [address] [place], [place] [address] (Wo rk) 05/28/2022 Laboratory Appointment Lab 05/28/2022 Office Visit Cardiology Zulma Dolan MD [facility] [place] [place] [address] Liz Poole PA [facility] [place] [address] 06/10/2022 Office Visit Dermatology Laura Scherer MD [facility] DR TEJA GR-DERMAT [place], [place] [address] (Wo rk) documented as of this encounter Visit Diagnoses Not on filedocumented in this encounter Care Teams Construction Safety Manager Relationship Specialty Start Date End Date Angela Holliday APRN PCP - General 01/25/13 04/15/[address] [place] [address] documented as of this encounter
--- OUTSIDE RECORDS SUMMARY | 2022-04-29 08:20 | XMS_ITS | Encounter Summary ---
:1945 Author Organization [place] [address] Care Team Providers Name Role Phone Adi Costello MD Primary Care Provider Reason for Visit Reason Comments Annual Exam ckeck his groin and melanoma follow-up Encounter Details Date Type Department Care Team Description 11/21/2010 Follow-Up Dermatology Arik Tipton Melanoma (Primary Dx) [facility] MD Jorge [place] [id number] DERMATOLOGY DEPT . 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 His only complaints are leg cramps, [...] Arik Tipton MD Section of Dermatology [facility] documented in this encounter Plan of Treatment Upcoming Encounters Date Type Specialty Care Team Description 05/28/2022 Appointment Cardiology Zulma Dolan MD [facility] Dr [place], [place] [address] (Wo rk) 05/28/2022 Laboratory Appointment Lab 05/28/2022 Office Visit Cardiology Zulma Dolan MD [facility] [place] [address] Liz Poole PA [facility] [place] [address] 06/10/2022 Office Visit Dermatology Laura Scherer MD [facility] DR TEJA GR-DERMAT [place], [place] [address] (Wo rk) documented as of this encounter Visit Diagnoses Diagnosis Melanoma - Primary Melanoma of skin, site unspecified documented in this encounter Care Teams Feed Handler Relationship Specialty Start Date End Date Adi Costello MD PCP - General 06/17/10 09/21/11 [address] [place] [address] documented as of this encounter
--- OUTSIDE RECORDS SUMMARY | 2022-04-29 08:20 | XMS_ITS | Encounter Summary ---
:1945 Author Organization [facility] [place] [address] Care Team Providers Name Role Phone Unknown Primary Care Provider Unavailable Reason for Visit Reason Comments Other Encounter Details Date Type Department Care Team Description 10/05/2012 Telephone Dermatology at [facility] Rigoberto Garcia III, [address] [place] [address] [facility] [phone] TEJA MARIE-DERMAT [place] [address] (Wo rk) Social History Tobacco Use Types [...] Zulma Dolan MD [facility] [place], [place] [address] (Wo rk) 05/28/2022 Laboratory Appointment Lab 05/28/2022 Office Visit Cardiology Zulma Dolan MD [facility] [place] [address] Liz Poole PA [facility] [place] [address] 06/10/2022 Office Visit Dermatology Laura Scherer MD [facility] DR TEJA MARIE-DERMAT [place], [place] [address] (Wo rk) documented as of this encounter Visit Diagnoses Not on filedocumented in this encounter Care Teams Filling Operator Relationship Specialty Start Date End Date Unknown PCP - General 10/04/12 01/24/13 None documented as of this encounter
--- OUTSIDE RECORDS SUMMARY | 2022-04-29 08:20 | XMS_ITS | Encounter Summary ---
:1945 Author Organization [facility] [place] [address] Care Team Providers Name Role Phone Miya Angela STACIE Primary Care Provider Encounter Details Date Type Department Care Team Description 04/24/2013 Telephone Urology at [facility] Zhen Bowman MD [facility] [place] [address] UROLOGY DEPT [phone] [place], [place] [address] (Wo rk) Social History Tobacco [...] Zulma Dolan MD [facility] [place], [place] [address] (Wo rk) 05/28/2022 Laboratory Appointment Lab 05/28/2022 Office Visit Cardiology Zulma Dolan MD [facility] [place] [address] Liz Poole PA [facility] [place] [address] 06/10/2022 Office Visit Dermatology Laura Scherer MD [facility] DR TEJA GR-DERMAT [place], [place] [address] (Wo rk) documented as of this encounter Visit Diagnoses Not on filedocumented in this encounter Care Teams Motor Hotel Manager Relationship Specialty Start Date End Date Angela Holliday APRN PCP - General 01/25/13 04/15/[address] [place] [place] [address] documented as of this encounter
--- OUTSIDE RECORDS SUMMARY | 2022-04-29 08:20 | XMS_ITS | Encounter Summary ---
:1945 Author Organization [facility] [place] [address] Care Team Providers Name Role Phone Angela Holliday STACIE Primary Care Provider Encounter Details Date Type Department Care Team Description 04/04/2013 Telephone Urology at [facility] Parker Sanchez MD [facility] [place] [address] UROLOGY DEPT [phone] [place], [place] [address] (Wo rk) Social History Tobacco [...] Zulma Dolan MD [facility] Dr [place], [place] [address] (Wo rk) 05/28/2022 Laboratory Appointment Lab 05/28/2022 Office Visit Cardiology Zulma Dolan MD [facility] [place] [address] Liz Poole PA [facility] [place] [address] 06/10/2022 Office Visit Dermatology Laura Scherer MD [facility] DR TEJA GR-DERMAT [place], [place] [address] (Wo rk) documented as of this encounter Visit Diagnoses Not on filedocumented in this encounter Care Teams Manager City Relationship Specialty Start Date End Date Angela Holliday APRN PCP - General 01/25/13 04/15/[address] [place] [address] documented as of this encounter
--- OUTSIDE RECORDS SUMMARY | 2022-04-29 08:20 | XMS_ITS | Encounter Summary ---
:1945 Author Organization [place] [address] Care Team Providers Name Role Phone MiyaAngela STACIE Primary Care Provider Reason for Visit Reason Comments Post Op voiding trial Encounter Details Date Type Department Care Team Description 04/05/2013 Office Visit Urology at [facility] Darryl Egan, UTI ([facility] MD tract infection) [facility] (Primary Dx) [place] [address] UROLOGY DEPT [phone] [place], [place] [address] Social History Tobacco Use Types [...] Zulma Dolan MD [facility] [place], [place] [address] (Wo rk) 05/28/2022 Laboratory Appointment Lab 05/28/2022 Office Visit Cardiology Zulma Dolan MD [facility] [place] [address] Liz Poole PA [facility] [place] [address] 06/10/2022 Office Visit Dermatology Laura Scherer MD [facility] [address] TEJA GR-DERMAT [place], [place] [address] [...] GREGORY HOANG ? Ordered By: DARRYL EGAN [facility] ? MR#: [id number] ?LOC: ??5B ? /Sex: ??1945 (68 years), [...] S ? Patient: GREGORY HOANG ? MR#: [id number] ? FOOTNOTES ? (1) ? This organism [...] Organization Address City/State/[place] [address] RAKESH WALKER documented in this encounter Visit Diagnoses Diagnosis UTI (lower urinary tract infection) - Pr imary Urinary tract infection, site not specif ied documented in this encounter Care Teams Cmm Technician Relationship Specialty Start Date End Date Angela Holliday APRN PCP - General 01/25/13 04/15/[address] [place] [address] documented as of this encounter
--- OUTSIDE RECORDS SUMMARY | 2022-04-29 08:20 | XMS_ITS | Encounter Summary ---
:1945 Author Organization [facility] [place] [address] Care Team Providers Name Role Phone MiyaLokeshAngela STACIE Primary Care Provider Encounter Details Date Type Department Care Team Description 04/04/2013 Orders Only General Surgery at [facility] thyroid [facility] MD Eliseo carcinoma (Primary Dx) [facility] [place] [address] GENERAL SURGERY [phone] [place], [place] [address] Social History Tobacco Use Types [...] MD [facility] er [place], [place] [address] (Wo rk) 05/28/2022 Laboratory Appointment Lab 05/28/2022 Office Visit Cardiology Zulma Dolan MD [facility] [place] [address] Liz Poole PA [facility] [place] [address] 06/10/2022 Office Visit Dermatology Laura Scherer MD [facility] [address] TEJA GR-DERMAT [place], [place] [address] (Wo rk) documented as of this encounter Visit Diagnoses Diagnosis Papillary thyroid carcinoma - Primary Malignant neoplasm of thyroid gland documented in this encounter Care Teams Clinical Manager Home Care Relationship Specialty Start Date End Date Angela Holliday APRN PCP - General 01/25/13 04/15/[address] [place] [address] documented as of this encounter
--- OUTSIDE RECORDS SUMMARY | 2022-04-29 08:20 | XMS_ITS | Encounter Summary ---
:1945 Author Organization [facility] [place] [address] Care Team Providers Name Role Phone NeilSom conner STACIE Primary Care Provider Reason for Visit Reason Comments Establish Care OBST GOITER Encounter Details Date Type Department Care Team Description 01/25/2013 Office Visit General Surgery at M[facility] er colloid, toxic, [facility] MD Eliseo nodular (Primary Dx) On [facility] [place], [place] GENERAL SURGERY [address] [place], [place] [address] [phone] Social History Tobacco Use Types Packs/Day Years [...] the thyroid gland were obtained using a SonoSiVeratect MicroMaxx and an HFL38/13-6 broadband linear array [...] agrees to proceed. Will sign in through [facility]. Consent is signed. Send copy to Dr. SOM HOLLIDAY APRN and Elijah Elias MD. documented in this encounter Plan of Treatment Upcoming Encounters Date Type Specialty Care Team Description 05/28/2022 Appointment Cardiology Zulma Dolan MD [facility] [address] [place] [address] (Wo rk) 05/28/2022 Laboratory Appointment Lab 05/28/2022 Office Visit Cardiology Zulma Dolan MD [facility] [place] [address] Liz Poole PA [facility] [place] [address] 06/10/2022 Office Visit Dermatology Laura Scherer MD [facility] DR TEJA GR-DERMAT [place], [place] [address] (Wo rk) documented [...] 406 ms MUSE SYSTEM (Bezet) Calculated P [place] 52 degrees MUSE SYSTEM Calculated R [place] 0 degrees MUSE SYSTEM Calculated T [place] 40 degrees MUSE SYSTEM INTERPRETATION Normal sinus [...] storm documented in this encounter Care Teams Power Press Tender Relationship Specialty Start Date End Date Som Holliday APRN PCP - General 01/25/13 04/15/[address] [place] [address] documented as of this encounter
--- OUTSIDE RECORDS SUMMARY | 2022-04-29 08:20 | XMS_ITS | Encounter Summary ---
:1945 Author Organization [facility] [place] [address] Care Team Providers Name Role Phone Angela Holliday APRN Primary Care Provider Encounter Details Date Type Department Care Team Description 03/15/2013 Telephone General Surgery at [facility] [place]ison Key, [place] [address] Social History Tobacco Use Types Packs/Day [...] Zulma Dolan MD [facility] [place], [place] [address] (Wo rk) 05/28/2022 Laboratory Appointment Lab 05/28/2022 Office Visit Cardiology Zulma Dolan MD [facility] [place] [address] Liz Poole PA [facility] [place] [address] 06/10/2022 Office Visit Dermatology Laura Scherer MD [facility] [address] [place], [place] [address] (Wo rk) documented as of this encounter Visit Diagnoses Not on filedocumented in this encounter Care Teams Move Coordinator Relationship Specialty Start Date End Date Angela Holliday APRN PCP - General 01/25/13 04/15/[address] [place] [address] documented as of this encounter
--- OUTSIDE RECORDS SUMMARY | 2022-04-29 08:20 | XMS_ITS | Encounter Summary ---
:1945 Author Organization [facility] [place] [address] Care Team Providers Name Role Phone Angela Holliday APRN Primary Care Provider Encounter Details Date Type Department Care Team Description 01/25/2013 Clinical [place] [address] Social History Tobacco Use Types Packs/Day [...] Dolan MD [facility] [address] [place], [place] [address] (Wo rk) 05/28/2022 Laboratory Appointment Lab 05/28/2022 Office Visit Cardiology Zulma Dolan MD [facility] [place] [address] Liz Poole PA [facility] [place] [address] 06/10/2022 Office Visit Dermatology Laura Scherer MD [facility] [address] [place], [place] [address] (Wo rk) documented as of this encounter Visit Diagnoses Not on filedocumented in this encounter Care Teams Head Operator Sulfide Relationship Specialty Start Date End Date Angela Holliday APRN PCP - General 01/25/13 04/15/[address] [place] [address] documented as of this encounter
--- OUTSIDE RECORDS SUMMARY | 2022-04-29 08:20 | XMS_ITS | Encounter Summary ---
:1945 Author Organization [facility] [place] [address] Care Team Providers Name Role Phone Angela Holliday APRN Primary Care Provider Encounter Details Date Type Department Care Team Description 03/30/2013 Telephone General Surgery at [facility] Cliff Nevarez, [place] [address] Social History Tobacco Use Types Packs/Day [...] Zulma Dolan MD [facility] [place], [place] [address] (Wo rk) 05/28/2022 Laboratory Appointment Lab 05/28/2022 Office Visit Cardiology Zulma Dolan MD [facility] [place] [address] Liz Poole PA [facility] [place] [address] 06/10/2022 Office Visit Dermatology Laura Scherer MD [facility] [address] [place], [place] [address] (Wo rk) documented as of this encounter Visit Diagnoses Not on filedocumented in this encounter Care Teams Regional Telecommunications Specialist Relationship Specialty Start Date End Date Angela Holliday APRN PCP - General 01/25/13 04/15/[address] [place] [address] documented as of this encounter
--- OUTSIDE RECORDS SUMMARY | 2022-04-29 08:21 | XMS_ITS | Encounter Summary ---
:1945 Author Organization [facility] Address [address] [place] [address] Care Team Providers Name Role Phone Unknown, Provider Primary Care Provider Encounter Details Date Type Department Care Team Description 03/05/2014 Results Only [facility] Eris Taylor MD Laboratory Services - [address] [place] [address] [place] [address] [phone] Social History Tobacco Use Types Packs/Day Years [...] ? DON HOANG ? Accession #: ? [id number] ? : ? 1945 (Age: 68) ??M [...] e Number [facility] [address] [place] [address] SERVICES [facility] [address] [place] [address] documented in this encounter Visit Diagnoses Not on filedocumented in this encounter Care Teams Music Composition Teacher Relationship Specialty Start Date End Date Unknown, Provider, PCP - General 03/07/14 07/12/14 documented as of this encounter
--- OUTSIDE RECORDS SUMMARY | 2022-04-29 08:21 | XMS_ITS | Encounter Summary ---
:1945 Author Organization [facility] Address [address] [place] [address] Care Team Providers Name Role Phone Lovely Vicente MD Primary Care Provider Encounter Details Date Type Department Care Team Description 01/17/2021 Lab [facility] Outr Resulting Lab, Pathology & Laboratory Provider [facility] [address] [place] [address] Social History Tobacco Use Types Packs/Day Years [...] nature PSA 2.9 0.0 - 6.5 ng/mL [facility] Specimen Blood - Venous blood (substance) Narrative [facility] - 01/17/2021 17:46 EDT NOTE: Serum PSA concentration should not be in terpreted as absolute evidence for the presence or absence of malignant disease. Assayed on Siemens [employer] Centaur XPT usi ng chemiluminescent technology.??Values obtained by using different assay methods cannot be used interchangeably. Performing Organization Address City/State/ZIP Code Phon e Number [facility] [address] [place] [address] SERVICES documented in this encounter Visit Diagnoses Not on filedocumented in this encounter Care Teams Plugger Worker Relationship Specialty Start Date End Date Lovely Vicente MD PCP - General 07/13/14 documented as of this encounter
--- OUTSIDE RECORDS SUMMARY | 2022-04-29 08:21 | XMS_ITS | Encounter Summary ---
:[address] [facility] Address [address] [place] [address] Care Team Providers Name Role Phone Lovely Vicente MD Primary Care Provider Encounter Details Date Type Department Care Team Description 08/11/2019 Lab Requisition [facility] Unknown, Provider, Pathology & Laboratory [facility] [address] [facility] [place] [address] Social History Tobacco Use Types Packs/Day Years [...] (08/11/2019 14:35 EST) Giardia and Cryptosporidium Cryptosporidium [facility] Cryptosporidium Antigen Neg and Antigen Neg and CENTER Giardia Antigen Neg Giardia Antigen Neg LABORATORY SERVICES Specimen Feces - Specimen from rectum (specimen) Performing Organization Address City/State/ZIP Code Phon e Number [facility] [address] [place] [address] SERVICES documented in this encounter Visit Diagnoses Not on filedocumented in this encounter Care Teams Cement Block Maker Relationship Specialty Start Date End Date Lovely Vicente MD PCP - General 07/13/14 documented as of this encounter
--- OUTSIDE RECORDS SUMMARY | 2022-04-29 08:21 | XMS_ITS | Clinical Summary ---
:1945 Author Organization [facility] Address [address] [place] [address] Care Team Providers Name Role Phone Lovely [...] i n the results section. COVID-19 TEST [facility] Today 01/27/2022 14:30 LAB PCR EDT COVID-19 TESTING Routine 01/27/2022 14:30 Results for this EDT procedure are i n the results section. from Last 3 Months Results PSA TOTAL, DIAGNOSTIC (02/20/2022 9:04 EDT) Pathologist Sig nature PSA 2.7 <=6.5 ng/mL [facility] LABORATOR Y SERVICES Specimen Blood - Venous blood (substance) Narrative [facility] - 02/20/2022 18:17 EDT NOTE: Serum PSA concentration should not be in terpreted as absolute evidence for the presence or absence of malignant disease. Assayed on Siemens [employer] Centaur XPT usi ng chemiluminescent technology.??Values obtained by using different assay methods cannot be used interchangeably. Performing Organization Address City/State/ZIP Code Phon e Number [facility] [address] [place] [address] SERVICES COVID-19 TEST [facility] LAB PCR (01/27/2022 14:30 EDT) Specimen Swab Performing Organization Address City/[facility]/ZIP Code Phon e Number [facility] [address] [place] [address] SERVICES COVID-19 TESTING (01/27/2022 14:30 EDT) COVID-19 rt-PCR Negative Negative [facility] Result Comment: CENTER LABORATORY This [...] performed using the meliton SARS-CoV-2 assay ([employer] on the Meliton 6800 System Performing Lab [place] [address] [facility] Lab [facility] SERVICES Specimen Swab Performing Organization Address City/[facility]/ZIP Code Phon e Number [facility] [address] [place] [address] SERVICES from Last 3 Months Care Teams Rn Relief Charge Relationship Specialty Start Date End Date Lovely Vicente MD PCP - General 07/13/14
--- OUTSIDE RECORDS SUMMARY | 2022-04-29 08:21 | XMS_ITS | Encounter Summary ---
:1945 Author Organization [facility] Address [address] [place] [address] Care Team Providers Name Role Phone Unknown, Provider Primary Care Provider Encounter Details Date Type Department Care Team Description 07/11/2014 Hospital Encounter [facility]- [place] Unknown, Provider, [facility] [address] [place] [address] [place] [address] (Work) [phone] Social History Tobacco Use Types Packs/Day Years Used Date Never Assessed Sex Assigned at Date Recorded Not on file documented as of this encounter Discharge Disposition Disposition Code Departure Means Destination Home or Self [facility] documented in this encounter Plan of Treatment Not on filedocumented as of this encounter Visit Diagnoses Not on filedocumented in this encounter Care Teams Folding Machine Feeder Relationship Specialty Start Date End Date Unknown, Provider, PCP - General 03/07/14 07/12/14 documented as of this encounter
--- OUTSIDE RECORDS SUMMARY | 2022-04-29 08:21 | XMS_ITS | Encounter Summary ---
:1945 Author Organization [facility] Address [address] [place] [address] Care Team Providers Name Role Phone Lovely Vicente MD Primary Care Provider Encounter Details Date Type Department Care Team Description 01/28/2022 Lab Requisition [facility] Outr Resulting Lab, Pathology & Laboratory Provider [facility] [address] [place] [address] Social History Tobacco Use Types Packs/Day Years Used Date Never Assessed Sex Assigned at Date Recorded Not on file documented as of this encounter Plan of Treatment Not on filedocumented as of this encounter Procedures Procedure Name Priority Date/Time Associated Diagnosis Comme nts COVID-19 TEST [facility] Today 01/27/2022 14:30 LAB PCR EDT COVID-19 TESTING Routine 01/27/2022 14:30 Results for this EDT procedure are i n the results section. documented in this encounter Results COVID-19 TEST [facility] LAB PCR (01/27/2022 14:30 EDT) Specimen Swab Performing Organization Address City/State/ZIP Code Phon e Number [facility] [address] [place] [address] SERVICES COVID-19 TESTING (01/27/2022 14:30 EDT) COVID-19 rt-PCR Negative Negative [facility] MEDICAL Result Comment: CENTER [...] was performed using the meliton SARS-CoV-2 assay ([employer] on the Meliton 6800 System Performing Lab [place] [address] [facility] Lab [facility] SERVICES Specimen Swab Performing Organization Address City/State/ZIP Code Phon e Number [facility] [address] [place] [address] SERVICES documented in this encounter Visit Diagnoses Not on filedocumented in this encounter Care Teams Research Worker Kitchen Relationship Specialty Start Date End Date Lovely Vicente MD PCP - General 07/13/14 documented as of this encounter
--- OUTSIDE RECORDS SUMMARY | 2022-04-29 08:21 | XMS_ITS | Encounter Summary ---
:1945 Author Organization [facility] Address [address] [place] [address] Care Team Providers Name Role Phone Lovely Vicente MD Primary Care Provider Encounter Details Date Type Department Care Team Description 08/11/2019 Lab Requisition [facility] Unknown, Provider, Pathology & Laboratory [facility] [address] [facility] [address] Social History Tobacco Use Types Packs/Day Years [...] Salmonella PCR Negative Negative [facility] LABORATORY SERVICES Shigella/Enteroinvasive Negative Negative [facility] R E. coli LABORATORY SERVICES HN LAB CAMPYLOBACTER PCR Negative Negative [facility] ER LABORATORY SERVICES Shiga Toxin PCR Negative Negative [facility] LABORATORY SERVICES Specimen Feces - Specimen from rectum (specimen) Performing Organization Address City/State/ZIP Code Phon e Number [facility] [address] [place] [address] SERVICES documented in this encounter Visit Diagnoses Not on filedocumented in this encounter Care Teams Tool Grinder Set Up Operator Gear Relationship Specialty Start Date End Date Lovely Vicente MD PCP - General 07/13/14 documented as of this encounter
--- OUTSIDE RECORDS SUMMARY | 2022-04-29 08:21 | XMS_ITS | Encounter Summary ---
:1945 Author Organization [facility] Address [address] [place] [address] Care Team Providers Name Role Phone Lovely Vicente MD Primary Care Provider Encounter Details Date Type Department Care Team Description 04/04/2021 Lab Requisition [facility] Outr Resulting Lab, Pathology & Laboratory Provider [facility] [address] [place] [address] Social History Tobacco Use Types Packs/Day Years [...] nature Salmonella PCR Negative Negative [facility] LABORATORY SERVICES Shigella/Enteroinvasive Negative Negative [facility]. coli LAB[facility]ORY SERVICES HN LAB CAMPYLOBACTER PCR Negative Negative [facility] ER LABORATORY SERVICES Shiga Toxin PCR Negative Negative [facility] LABORATORY SERVICES Specimen Feces - Specimen from rectum (specimen) Performing Organization Address City/State/ZIP Code Phon e Number [facility] [address] [place] [address] SERVICES documented in this encounter Visit Diagnoses Not on filedocumented in this encounter Care Teams Director Of Financial Planning Relationship Specialty Start Date End Date Lovely Vicente MD PCP - General 07/13/14 documented as of this encounter
--- OUTSIDE RECORDS SUMMARY | 2022-04-29 08:22 | XMS_ITS ---
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 Problem Critical ischemia I99.8 Active of lower extremity Problem Atherosclerosis I70.90 Active 3871 6007 Problem Type 2 diabetes E11.628 Active mellitus with other skin complications Problem History of arterial Z95.828 Active bypass of lower extremity Problem Ulcer of left calf, L97.221 Active 744620206 limited to breakdown of skin Problem Ulcer of right L97.211 Active 87791 4006 calf, limited to breakdown of skin Problem Peripheral arterial I73.9 Active 470276333 disease ALLERGIES No Known Allergies ENCOUNTERS Encounter Location Date Diagnosis [facility] 10 Aug, 2020 [place] [address] [address] 11 May, 2020 Type 2 diabet es mellitus [place] with diabe tic neuropathy, [address] unspecified E11. 40 ; Acquired deformi ty of right foot M21.961 ; L luis term current use of i nsulin Z79.4 ; History of art erial bypass of lower extremi ty Z95.828 ; Atherosclerosis I70.90 and History of Lisfr anc amputation of fo ot Z89.439 [facility] Feb, Type 2 diabet es mellitus [address] [place], [place] with diabe tic neuropathy, [address] unspecified E11. 40 ; Acquired deformi ty of right foot M21.961 ; L luis term current use of i nsulin Z79.4 ; History of art erial bypass of lower extremi ty Z95.828 ; Atherosclerosis I70.90 and History of Lisfr anc amputation of fo ot Z89.439 [facility] November, [place] [address] [facility] [place] [facility] November, Type 2 [place] [address] with diabeti c neuropathy, unspecified E11. 40 ; Acquired deformi ty of right foot M21.961 ; L luis term current use of i nsulin Z79.4 ; History of art erial bypass of lower extremi ty Z95.828 ; Atherosclerosis I70.90 and History of Lisfr anc amputation of fo ot Z89.439 [facility] 10 Aug, 2019 Type 2 [place] [address] with other skin complications E1 1.628 ; Tinea pedis of l eft foot B35.3 ; Type 2 d iabetes mellitus with di abetic neuropathy, unsp ecified E11.40 ; Acquire d deformity of right foot M2 1.961 ; intermediate current use of insulin Z79.4 ; History of arterial bypass of lower extremity Z95.828 and Athe rosclerosis I70.90 [facility] Jun, [place] [address] [address] Jun, [place] [address] [address] Jun, Type 2 diabet es mellitus [place], [place] with other skin [address] complications E1 1.628 ; Acquired deformi ty of right foot M21.961 ; T ype 2 diabetes mellitu s with diabetic neuropa thy, unspecified E11. 40 ; line camera operator current use of insulin Z79.4 and Histor y of arterial bypass of lower extremity Z95.82 8 [facility] Feb, Type 2 [place] [address] with other s kin complications E1 1.628 ; Acquired deformi ty of right foot M21.961 ; T ype 2 diabetes mellitu s with diabetic neuropa thy, unspecified E11. 40 ; intermediate current use of insulin Z79.4 and Histor y of arterial bypass of lower extremity Z95.82 8 [facility] November, Tinea pedis o f left foot [place], [place] B35.3 ; Ty pe 2 diabetes [address] mellitus with ot her skin complications E1 1.628 ; Acquired deformi ty of right foot M21.961 ; T ype 2 diabetes mellitu s with diabetic neuropa thy, unspecified E11. 40 ; line camera operator current use of insulin Z79.4 and Histor y of arterial bypass of lower extremity Z95.82 8 [facility] November, [place] [address] [address] Aug, Type 2 diabet es mellitus [place], [place] with diabe tic neuropathy, [address] unspecified E11. 40 ; Acquired deformi ty of right foot M21.961 ; P eripheral arterial disease I73.9 ; History of arter ial bypass of lower extremi ty Z95.828 ; intermediate curren t use of insulin Z79.4 an d History of Lisfranc amputat ion of foot Z89.439 UNKNOWN Jul, [facility] 11 Jun, 2018 Type 2 [place] [address] with diabeti c neuropathy, unspecified E11. [address] [facility] Apr, Edema of both legs R60.0 ; [place], [place] Acquired d eformity of right 11499 foot M21.961 ; P eripheral arterial disease I73.9 ; History of arter ial bypass of lower extremi ty Z95.828 ; line camera operator curren t use of insulin Z79.4 an d Type 2 diabetes mellitu s with diabetic neuropa thy, unspecified E11. [address] [facility] Mar, [place] [address] [address] Mar, Edema of both legs R60.0 ; [place] Acquired d eformity of right 56912 foot M21.961 ; P eripheral arterial disease I73.9 ; History of arter ial bypass of lower extremi ty Z95.828 ; line camera operator curren t use of insulin Z79.4 an d Type 2 diabetes mellitu s with diabetic neuropa thy, unspecified E11. 40 [facility] Feb, Edema of both legs R60.0 ; [place] [address] Ulcer of lef t calf, limited to breakdown of skin L97.221 ; Acquired defor mity of right foot M21.9 61 ; Peripheral arter ial disease I73.9 ; History of arterial bypass of lower extremity Z95.828 ; Long t erm current use of insulin Z 79.4 and Type 2 diabetes mellitus with diabetic ne uropathy, unspecified E11. 40 [facility] 1 Feb, [facility] [place] [address] [facility] Feb, Edema of both legs R60.0 ; [place] [address] Ulcer of rig ht calf, limited to [...] uropathy, unspecified E11. 40 [facility] Feb, [place] [address] [facility] [address] [facility] [address] Feb, [place] [address] [facility] [address] [facility] [place] [address] [facility] [address] [facility] [address] Jan, [place] [address] [facility] [address] [facility] [address] Jan, [place] [address] [facility] [address] Jan, [place] [address] [facility] [address] [facility] [address] Jan, [place] [address] [facility] Dec, [place] [address] [facility] [address] Dec, [place] [address] [facility] [address] Dec, [place] [address] [facility] [address] [facility] Dec, [place] [address] [facility] Dec, [place] [address] [facility] Dec, [place] [address] [facility] November, [place] [address] [facility] November, [place] [address] [facility] November, [place] [address] [facility] November, [place] [address] [facility] November, [place] [address] [facility] November, [place] [address] UNKNOWN November, [facility] [address] [place] November, OFFICE [place] [address] [facility] November, [place] [address] [facility] Oct, [place] [address] [facility] Oct, [place] [address] [facility] Oct, [place] [address] [facility] [address] 18 Oct, 2017 [place] [address] [facility] 16 Oct, 2017 [place] [address] [facility] [address] [place] 16 Oct, 2017 [facility] [address] [facility] Oct, [place] [address] [facility] Oct, [place] [address] [facility] Oct, [place] [address] [facility] [address] Sep, [facility] [address] [facility] Sep, [place] [address] [facility] [address] [place] Sep, [place] [address] [facility] [address] [place] Sep, [place] [address] [facility] [address] Sep, [place] [address] [facility] [address] Sep, Critical ischemi a of lower [place] [address] extremity I 99.8 ; Local infection of the skin and subcutaneous tis lindsey, unspecified L08. 9 and Type 2 diabetes mellitu s with other skin complicatio ns E11.628 [facility] Sep, [place] [address] [facility] [address] [facility] [address] Sep, [place] [address] [facility] [address] [facility] [address] Sep, [place] [address] [facility] [address] [facility] [address] 14 Sep, [address] [place] [address] [facility] Sep, [place] [address] [facility] Sep, [place] [address] [facility] Sep, [place] [address] [facility] Sep, [place] [address] [facility] [address] [facility] [address] Aug, [place] [address] [facility] [address] [place] Aug, [facility] [address] [facility] [address] [place] Aug, [place] [address] SURGERY [facility] Aug, [place] [address] SURGERY [facility] Aug, [place] [address] [facility] [address] [facility] Aug, [place] [address] ORTHOPEDIC OFFICE [facility] Aug, Pre-op exam Z01.818 [place] [address] [facility] Aug, [place] [address] [facility] Aug, [place] [address] [facility] Aug, [place] [address] IMMUNIZATIONS No Known Immunizations SOCIAL HISTORY Qualifiers [...] subcutaneously 22 24h Active units/mL daily Pen Mcdonald Active Ciclopirox Externally Twice 1 application 12h [...] For Report MR Lower Ext R w/o ([id number]) 2017-09-16 See Below For Report CR C-ARM [...] 03/04/18 - 6.7, [facility] [facility], f/u - bilateral leg edema, Pt [...] at wound center,lab work done 03/07/2018 @ [facility], Patient came in with tubigrip bilateral , wound clin est, wound clinest, Wound CTR-follow up, Wound CTR-follow up, Wound CTR-follow up, Peer to Peer w/ Dr. Espino, Wound CTR-follow up, Wound CTR-follow up, Race Engine Builder Documentation, LAB, Wound CTR-follow up, Wound CTR-follow up, Wound CTR-follow up, Wound CTR-follow up, LAB, LAB, Wound CTR- follow up, Wound CTR-follow up, Wound CTR-follow up, Race Engine Builder Documentation, [facility], Wound CTR-follow up, Wound CTR-follow up, Pull PICC Line, Wound CTR-follow up, Wound CTR-follow up, LAB, Still taking doxycycline 100mg? , Wound CTR-follow up, Wound CTR-follow up, Wound CTR-follow up, Race Engine Builder Documentation, Wound CTR-follow up, Wound CTR-follow up, Call back, Race Engine Builder Documentation, Race Engine Builder Documentation, Race Engine Builder Documentation, Wound CTR-follow up, WCC, Wound CTR-follow [...] Dates MEDICARE 3000 [address]FF[address] MEDICARE self [place] [id number] 1 [id number] [facility] [id number] S-BLUE [phone] S-BLUE [place] [id number] [address] [place] [address] [place] [address]F [address] SELF PAY self [place] [id number] AFTER BLUE [place] AFTER BLUE [facility] [address] CROSS OTHER 29 [place] [phone] OTHER [place] [id number] GRANT 1^MAIN CONSTITUTION PARTY [facility] PAYOR [id number]
--- OUTSIDE RECORDS SUMMARY | 2022-05-01 08:51 | XMS_ITS | Encounter Summary ---
:1945 Author Organization [facility] [place] [address] Care Team Providers Name Role Phone Lovely Vicente MD Primary Care Provider Reason for Referral Diagnostic Test (Routine) - New Request Specialty Diagnoses / Procedures Referred By Contact Refer red To Contact Cardiology Diagnoses Chronic systolic heart failure Liz Carrera PA [facility] Non-Inv Card Lab Procedures Echocardiogram Transthoracic [facility] [place] [address] [place] [address] Fax: Referral ID Status Reason Start Expiration Visits Visits Date Date Requested Authorized [id number] New Request Specialty 02/19/2022 02/19/2023 1 1 Service Requested Encounter Details Date Type Department Care Team Description 02/19/2022 Office Visit Cardiology at [facility] Liz Carrera, Chronic systolic heart [facility] [place] [address] Cardiology Dept [phone] [place], [place] [address] Social History Tobacco Use Types [...] OFFICE VISIT NOTE: ID and CC: Don Ftaima is a 76 y.o. male presenting for [...] [facility] [place] on 12[facility]08[facility], transferred from [facility], respiratory distress [...] mg PO daily in place of Lasix. [place] is new for him and he will [...] his PCP. He started [facility] rehab in [facility]. Monitored vitals/trends at home: [...] Antiplatelet (DAPT) Recommendations above ? TTE from [facility] 12/08/21 ?? 07/28/2019 Echocardiogram: SUMMARY: 1. [...] regurgitation present. 07/07/2019 - 07/21/2019 Zio Patch Model And Pattern Supervisor The patient had a minimum heart [...] 12.5 mg daily 6. Post-op atrial fibrillation [id number] 7 (CHF, HTN, DM, vascular disease, thromboembolism) Eliquis 7. PAD 08/06/2017: Right 1st, 2nd, 3rd toe amputation 08/11/2017: Left??femoral arterial access, RLE??angiogram, Balloon angioplasty of R PT 10/25/2017: right popliteal-pedal bypass at [facility] 8. Hypothyrodism S/p thyroidectomy for [...] Dolan MD [facility] [place], [place] [address] (Wo rk) 05/28/2022 Laboratory Appointment Lab 05/28/2022 Office Visit Cardiology Zulma Dolan MD [facility] [place] [address] Liz Carrera PA [facility] [place] [address] 06/10/2022 Office Visit Dermatology Laura Scherer MD [facility] DR [address] [facility] [place] [address] (Wo rk) Scheduled Orders Name Type Priority Associated Order Schedule Diagnoses Echocardiogram Echocardiography Routine Chronic systolic Expec vlad: Transthoracic heart failure 05/22/2022 (Approximate), Expires: 11/21/2022 documented as of this encounter Results (ABNORMAL) Basic Metabolic Panel (non-fasting) (02/19/2022 8:06 AM EDT) P athologist Signature Glucose Lvl 139 65 - 199 [facility] mg/dL [facility] Comment: Diabetes: [...] City/State/ZIP Code Phon e Number [place] [phone] (ABNORMAL) pro-Brain Natriuretic Peptide (02/19/2022 8:06 AM EDT) P athologist Signature ProBNP 984 (H) <=449 pg/mL [facility] Specimen Anatomical Collection Method Collection Time Receive d Time (Source) Location / / Volume Laterality Blood 02/19/2022 8:06 AM 8:09 EDT AM EDT Resulting Agency Comment Spec In Lab Zulma Plunkett MD CHEMISTRY ORDERABLES Performing Organization Address City/[facility]/ZIP [place] [address] documented in this encounter Visit Diagnoses Diagnosis Chronic systolic heart failure documented in this encounter Care Teams Tool Liaison Relationship Specialty Start Date End Date Lovely Vicente MD PCP - General 04/16/[address] [place] [address] documented as of this encounter
--- OUTSIDE RECORDS SUMMARY | 2022-05-01 08:51 | XMS_ITS | Encounter Summary ---
:1945 Author Organization [facility] Address [facility] [place] [address] Care Team Providers Name Role Phone Lovely Vicente MD Primary Care Provider Reason for Visit Reason Onset Date Comments Medication Refill 03/06/2022 Metoprolol Succinate Encounter Details Date Type Department Care Team Description 03/06/2022 Refill Cardiology [place] [facility] Liz Poole PA Medication Refill [facility] ([place] toprolol Succinate) [place] [address] Cardiology Dept [phone] [place], [place] [address] (Wo rk) Social History Tobacco [...] MD [facility] [place] [address] [place] [address] (Wo rk) 05/28/2022 Laboratory Appointment Lab 05/28/2022 Office Visit Cardiology Zulma Dolan MD [facility] [place] [address] [facility] [place] [address] 06/10/2022 Office Visit Dermatology Laura Scherer MD [facility] ER [address] [place], [place] [address] (Wo rk) documented as of this encounter Visit Diagnoses Diagnosis Chronic systolic heart failure Cardiomyopathy, ischemic Other specified forms of chronic ischemi c heart disease documented in this encounter Care Teams Revenue Accounting Manager Relationship Specialty Start Date End Date Lovely Vicente MD PCP - General 04/16/[address] [place] [address] documented as of this encounter
--- OUTSIDE RECORDS SUMMARY | 2022-05-01 08:51 | XMS_ITS | Encounter Summary ---
:1945 [place] [address] Care Team Providers Name Role Phone Lovely Vicente MD Primary Care Provider Reason for Visit Reason Onset Date Comments Follow-up 03/06/2022 Dave Bueno Encounter Details Date Type Department Care Team Description 03/06/2022 Telephone Cardiology at [facility] Martha Comer, Follow-up ([facility] VAM[facility] Start) [place] [address] Social History Tobacco Use Types Packs/Day [...] pt had gotten his labs done at [facility] yesterday. Results received, scanned and entered [...] Zulma Dolan MD [facility] [address] [place], [place] [address] (Wo rk) 05/28/2022 Laboratory Appointment Lab 05/28/2022 Office Visit Cardiology Zulma Dolan MD [facility] [place] [address] Liz Poole PA [facility] [place] [address] 06/10/2022 Office Visit Dermatology Laura Scherer MD [facility] [address] [place], [place] [address] (Wo rk) documented as of [...] on filedocumented in this encounter Care Teams Duplication Specialist Relationship Specialty Start Date End Date Lovely Vicente MD PCP - General 04/16/[address] [place] [address] documented as of this encounter
--- OUTSIDE RECORDS SUMMARY | 2022-05-01 08:51 | XMS_ITS | Encounter Summary ---
:1945 Author Organization [facility] [place] [address] Care Team Providers Name Role Phone Lovely Vicente MD Primary Care Provider Encounter Details Date Type Department Care Team Description 03/26/2022 Office Visit Cardiology at [facility] [place] Vitaliy Nobles MD Chronic systolic heart failure; [facility] ONE MEDICAL ASCVD (ar teriosclerotic cardiovascular disease); [facility] Cardiomyopathy, ischemic [place], [place] CARDIOLOGY [address] [place] [address] [phone] Social History Tobacco Use Types Packs/Day Years [...] not included. [facility] [place] [address] CARDIOLOGY OUTPATIENT CLINIC VISIT [facility] Don Mccollum Kushal 03/26/2022 Referring Providers: MD Jules Cr Joyce, MD [address] [place] [address] CHIEF COMPLAINT: I am doing well CARDIAC-RELEVANT [...] using a 2.0 x 26 mm ORION [place] TUCKER stent. This completes therevascularization of all [...] in [address] Lovely Vicente MD [address] [place] [address] HISTORY OF PRESENT ILLNESS: Don Fatima is a 77 y.o. male patient presenting for an outpatient cardiology visit. Don Fatima??is a 76 y.o.??male??with h/o??CAD s/p 3vCABG (THOMSPON-LAD, sequential SVG-OM1-D1) 07/07/2017 following late STEMI, ischemic [...] using a 2.0 x 26 mm ORION [place] TUCKER stent. This completes the revascularization of [...] 12.71) performed by Yonathan Smith MD at [facility] OR ??? PRO CABG, ARTERIAL, SINGLE N/A 07/07/2017 @CABG, USING ARTERIAL GRAFT;SINGLE ARTERIAL GRAFT (WRVU 33.75) performed by Yuan Retana MD at [facility] OR ??? PRO CABG, ARTERY-VEIN, TWO N/A 07/07/2017 @CABG, TWO VENOUS GRAFTS & ARTERIAL GRAFT (WRVU 7.93) performed by Yuan Retana MD at [facility] OR ??? PRO COLONOSCOPY, REMV LESN, SNARE [...] [facility] OR ??? PRO PERC TRLUML CORONARY STENT W/ANGIO ONE ART/BRANCH N/A 01/30/2022 STENT PLACEMENT-SINGLE MAJOR CORONARY ARTERY OR BRANCH performed by Vitaliy Nobles MD at [facility] CATH LABS ??? PRO THYROIDECTOMY 03/28/2013 THYROIDECTOMY, TOTAL OR COMPLETE performed by Manny Mcknight MD at [facility] MAIN OR SOCIAL HISTORY: reports [...] using a 2.0 x 26 mm ORION [place] TUCKER stent. This completes the revascularization of [...] Sincerely, Dr. Vitaliy Nobles MD MS CORBIN Director Telemetry Interventional Cardiology 03/26/2022 CC: Lovely Vicente MD [...] As per DC Summary - Admitted to [facility] [place] on 12/08/21, transferred from [facility], [...] his PCP. He started [facility] rehab in [facility]. Monitored vitals/trends at home: Weight [...] regurgitation present. 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 Post-op atrial fibrillation [id number] 7 (CHF, HTN, DM, vascular disease, thromboembolism) [...] Zulma Dolan MD [facility] [place] [address] (Wo rk) 05/28/2022 Laboratory Appointment Lab 05/28/2022 Office Visit Cardiology Zulma Dolan MD [facility] [place] [address] Liz Poole PA [facility] [place] [address] 06/10/2022 Office Visit Dermatology Laura Scherer MD [facility] DR [address] [place], [place] [address] (Wo rk) documented as of this encounter Visit Diagnoses Diagnosis Chronic systolic heart failure ASCVD (arteriosclerotic cardiovascular d isease) Unspecified cardiovascular disease Cardiomyopathy, ischemic Other specified forms of chronic ischemi c heart disease documented in this encounter Care Teams Ladle Watcher Relationship Specialty Start Date End Date Lovely Vicente MD PCP - General 04/16/[address] [place] [address] documented as of this encounter
--- OUTSIDE RECORDS SUMMARY | 2022-05-01 08:51 | XMS_ITS | Encounter Summary ---
:1945 Author Organization [facility] [place] [address] Care Team Providers Name Role Phone Lovely Vicente MD Primary Care Provider Reason for Visit Reason Comments Medication Refill Encounter Details Date Type Department Care Team Description 04/07/2022 Refill Cardiology at [facility] Janneth Padilla PA Medication Refill [facility] [place] [address] CARDIOLOGY DEPT. [phone] [place], [place] [address] (Wo rk) Social History Tobacco [...] Dolan MD [facility] er [place], [place] [address] (Wo rk) 05/28/2022 Laboratory Appointment Lab 05/28/2022 Office Visit Cardiology Zulma Dolan MD [facility] [place] [address] Liz Poole PA [facility] [place] [address] 06/10/2022 Office Visit Dermatology Laura Scherer MD [facility] [address] [place], [place] [address] (Wo rk) documented as of this encounter Visit Diagnoses Not on filedocumented in this encounter Care Teams Plasterer Stucco Relationship Specialty Start Date End Date Lovely Vicente MD PCP - General 04/16/[address] [place] [address] [address] [place] [address] documented as of this encounter
--- OUTSIDE RECORDS SUMMARY | 2022-05-01 08:51 | XMS_ITS | Encounter Summary ---
:1945 [place] [address] Care Team Providers Name Role Phone Lovely Vicente MD Primary Care Provider Reason for Visit Reason Onset Date Comments Follow-up 02/26/2022 Entresto start Encounter Details Date Type Department Care Team Description 02/26/2022 Telephone Cardiology at [facility] Martha Comer, Follow-up (Formerly [facility] RN start) [place] [address] Social History Tobacco Use Types Packs/Day [...] on 03/05/22 Getting labs done at : [facility] Order e-faxed by STEPHANIE Poole on 02/24/22. /pt to call on 03/05/22 letting us know to get the BMP results from [facility]. Nursing to get results and contact pt to see how he is tolerating the Entresto. They are to call sooner with any questions/concerns. documented in this encounter Plan of Treatment Upcoming Encounters Date Type Specialty Care Team Description 05/28/2022 Appointment Cardiology Zulma Dolan MD [facility] [place], [place] [address] (Wo rk) 05/28/2022 Laboratory Appointment Lab 05/28/2022 Office Visit Cardiology Zulma Dolan MD [facility] [place] [address] Liz Poole PA [facility] [place] [address] 06/10/2022 Office Visit Dermatology Laura Scherer MD [facility] [address] [place], [place] [address] (Wo rk) documented as of this encounter Visit Diagnoses Not on filedocumented in this encounter Care Teams Forming Machine Adjuster Relationship Specialty Start Date End Date Lovely Vicente MD PCP - General 04/16/[address] [place] [address] documented as of this encounter
--- OUTSIDE RECORDS SUMMARY | 2022-05-01 08:51 | XMS_ITS | Encounter Summary ---
:1945 Author Organization [facility] [place] [address] Care Team Providers Name Role Phone Lovely Vicente MD Primary Care Provider Encounter Details Date Type Department Care Team Description 02/24/2022 Orders Only Cardiology [place] [facility] iLz Poole, Chronic systolic heart [facility] [place] [address] Cardiology Dept [place], [place] [address] Social History Tobacco Use Types [...] Dolan MD [facility] [place], [place] [address] (Wo rk) 05/28/2022 Laboratory Appointment Lab 05/28/2022 Office Visit Cardiology Zulma Dolan MD [facility] [place] [address] Liz Poole PA [facility] [place] [address] 06/10/2022 Office Visit Dermatology Laura Scherer MD [facility] ER [address] [place], [place] [address] (Wo rk) documented as of this encounter Visit Diagnoses Diagnosis Chronic systolic heart failure documented in this encounter Care Teams Larder Cook Relationship Specialty Start Date End Date Lovely Vicente MD PCP - General 04/16/[address] [place] [address] documented as of this encounter
--- OUTSIDE RECORDS SUMMARY | 2022-05-01 08:51 | XMS_ITS | Encounter Summary ---
:1945 Author Organization [facility] [place] [address] Care Team Providers Name Role Phone Lovely Vicente MD Primary Care Provider Reason for Visit Reason Onset Date Comments Medication Refill 03/11/2022 Encounter Details Date Type Department Care Team Description 03/06/2022 Refill Cardiology at [facility] Liz Poole PA Medication Refill [facility] Jorge mcnamara [facility] [place] [address] Cardiology Dept [phone] [place], [place] [address] (Wo rk) Social History Tobacco [...] MD [facility] [place], [place] [address] (Wo rk) 05/28/2022 Laboratory Appointment Lab 05/28/2022 Office Visit Cardiology Zulma Dolan MD [facility] [place] [address] Liz Poole PA [facility] [place] [address] 06/10/2022 Office Visit Dermatology Laura Scherer MD [facility] ER DR [address] [place], [place] [address] (Wo rk) documented as of this encounter Visit Diagnoses Not on filedocumented in this encounter Care Teams Administrative Support Associate Relationship Specialty Start Date End Date Lovely Vicente MD PCP - General 04/16/[address] [place] [address] documented as of this encounter
--- OUTSIDE RECORDS SUMMARY | 2022-05-01 08:51 | XMS_ITS | Encounter Summary ---
:1945 Author Organization [facility] [place] [address] Care Team Providers Name Role Phone Lovely Vicente MD Primary Care Provider Encounter Details Date Type Department Care Team Description 02/19/2022 Laboratory Appointment Lab 3L [facility] [place] [id number] Social History Tobacco Use Types Packs/Day Years [...] MD [facility] [place] [address] (Wo rk) 05/28/2022 Laboratory Appointment Lab 05/28/2022 Office Visit Cardiology Zulma Dolan MD [facility] [place] [address] Liz Poole PA [facility] [place] [address] 06/10/2022 Office Visit Dermatology Laura Scherer MD [facility] [address] [place] [address] (Wo rk) documented as of this encounter [...] (ABNORMAL) Differential, Automated (02/19/2022 8:06 AM EDT) [facility] gist Method Time Signature Neutrophils % 76.0 % [facility] LABOR[facility]ORY Neutr Abs (ANC) 5.49 1.70 - [facility] 6.10 [facility] x10(3)/[facility] LABORATORY Lymphocytes % 10.8 % [facility] Lymphocytes Abs 0.8 (L) 0.9 - 3.2 [facility] x10(3)/[facility] LABORATORY Monocytes % 10.2 % [facility] Monocyte Abs 0.7 0.3 - 0.9 [facility] x10(3)/[facility] LABORATORY Eosinophils % 1.2 % [facility] Eosinophils Abs 0.1 0.0 - 0.4 [facility] x10(3)/[facility] LABORATORY Basophils % 0.8 % [facility] Basophils Abs 0.1 0.0 - 0.1 [facility] x10(3)/[facility] LABORATORY Immature Gran % 1.00 % [facility] Comment: [...] Organization Address City/State/ZIP [place] [address] (ABNORMAL) Hemogram (02/19/2022 8:06 AM EDT) Analysis Performed At Patho logist Time Signature WBC 7.2 4.0 - 9.5 [facility] x10(3)/[facility] LABORATORY RBC 4.41 (L) 4.58 - [facility] 5.54 [facility] x10(6)/[facility] LABORATORY Hemoglobin 13.2 (L) 13.7 - [facility] 16.5 g/dL [facility]OR[facility]ORY Hematocrit 40.9 40.5 - [facility] 48.5 % [facility] MCV 92.7 82.9 - [facility] 93.1 [facility] LABORATORY MCH 29.9 27.5 - [facility] 32.1 pg [facility] LABORATORY MCHC 32.3 32.0 - [facility] 35.7 g/dL [facility] LABORATORY Platelets 191 145 - 357 [facility] x10(3)/[facility] LABORATORY RDWSD 53.6 (H) 36.0 - [facility] 45.0 [facility] LABORATORY RDWCV 15.6 (H) 11.4 - [facility] 13.8 % [facility] LABORATORY MPV 8.7 7.6 - 12.9 [facility] LABORATORY nRBC % Auto 0.0 % [facility] LABOR[facility]ORY nRBC Abs Auto 0.000 0.000 - [facility] 0.000 [facility] x10(3)/[facility] LABORATORY Specimen Anatomical Collection Method Collection Time Receive d Time (Source) Location / / Volume Laterality Blood 02/19/2022 8:06 AM 2 8:09 EDT AM EDT Resulting Agency Comment Spec In Lab Liz BROWN HEMATOLOGY ORDERABLES Performing Organization Address City/[facility]/[place] [address] (ABNORMAL) pro-Brain Natriuretic Peptide [...] Organization Address City/State/[place] [address] (ABNORMAL) Basic Metabolic Panel (non-fasting) (02/19/2022 8:06 AM EDT) P athologist Signature Glucose Lvl 139 65 - 199 [facility] mg/dL [facility] [...] Organization Address City/State/Z[place] [address] documented in this encounter Visit Diagnoses Diagnosis Chronic systolic heart failure documented in this encounter Care Teams Story Analyst Relationship Specialty Start Date End Date Lovely Vicente MD PCP - General 04/16/[address] [place] [address] documented as of this encounter
--- OUTSIDE RECORDS SUMMARY | 2022-05-01 08:51 | XMS_ITS | Encounter Summary ---
:1945 Author Organization [facility] Address [facility] [place] [address] Care Team Providers Name Role Phone Lovely Vicente MD Primary Care Provider Reason for Visit Reason Comments Prior Authorization Entresto 24-26mg tablets Encounter Details Date Type Department Care Team Description 02/20/2022 Specialty Pharmacy Pharmacy at [facility] Lamberto Smith Prior Authorization [facility] J (Entresto 24-26mg Drive tablets) [place] [id number] Social History Tobacco Use Types Packs/Day Years [...] Don Fatima Patient : 1945 Patient Address: [address] [place] [address] [place] [address] (home) Medication Name: ENTRESTO 24 MG-26 MG TABLET Medication ID: [id number] Patient Location: [facility] 4A Patient Location Comment: Medication Strength Frequency Requested: Entresto 24-26mg tablets / One tablet twice daily Qty/Day Supply: New Start: New to Therapy Diagnosis & ICD-10 Code: Chronic systolic heart failure, I50.22 Subscriber Insurance: [employer] [facility] Subscriber Insurance Comment: Fax: Physician: LIZ CARRERA Physician Comment : PA Status: NO PA REQUIRED Insurance mandated Pharmacy: Unknown Fillable at [facility]: Yes Insurance requirements/notes: None Copay: $119.01 (goes to coverage gap/odalys monteiro) Copay assistance: [email or web address] Copay assistance comment: If cost isn't affordable, then we'll suggest enrollment in the currently open [facility] Heart Failure zoila, which provides up to $1000 in copay assistance. If zoila closes, or doesn't work out, then the patient can attempt enrollment in the sales service supervisor assistance program, the [employer] Patient Assistance [employer] (NPAF). At which point we'd refer to [facility] for assistance with enrollment. [...] MD [facility] [place] [address] Liz Carrera PA [facility] [place] [address] 06/10/2022 Office Visit Dermatology Laura Scherer MD [facility] ER DR [address] [place], [place] [address] (Wo rk) documented as of this encounter Visit Diagnoses Not on filedocumented in this encounter Care Teams Marketing Administrative Assistant Relationship Specialty Start Date End Date Lovely Vicente MD PCP - General 04/16/[address] [place] [address] documented as of this encounter
--- OUTSIDE RECORDS SUMMARY | 2022-05-01 08:51 | XMS_ITS | Encounter Summary ---
:1945 Author Organization [facility] [place] [address] Care Team Providers Name Role Phone Lovely Vicente MD Primary Care Provider Encounter Details Date Type Department Care Team Description 02/24/2022 Notes Only [place] [address] Social History Tobacco Use Types Packs/Day [...] return to the Medication Assistance Program. The [facility] office will follow up with the patient in 5 business days to see if the patient has received the application and if they have any questions. documented in this encounter Plan of Treatment Upcoming Encounters Date Type Specialty Care Team Description 05/28/2022 Appointment Cardiology Zulma Dolan MD [facility] [address] [place], [place] [address] (Wo rk) 05/28/2022 Laboratory Appointment Lab 05/28/2022 Office Visit Cardiology Zulma Dolan MD [facility] [place] [address] Liz Poole PA [facility] [place] [address] 06/10/2022 Office Visit Dermatology Laura Scherer MD [facility] ER DR [address] [place], [place] [address] (Wo rk) documented as of this encounter Visit Diagnoses Not on filedocumented in this encounter Care Teams Strategy Analyst Relationship Specialty Start Date End Date Lovely Vicente MD PCP - General 04/16/[address] [place] [address] documented as of this encounter
--- OUTSIDE RECORDS SUMMARY | 2022-05-01 08:51 | XMS_ITS | Encounter Summary ---
:1945 Author Organization [facility] Address [facility] [place] [address] Care Team Providers Name Role Phone Lovely Vicente MD Primary Care Provider Reason for Visit Auth/Cert Specialty Diagnoses / Procedures Referred By Contact Refer red To Contact Diagnoses ASCVD (arteriosclerotic cardiovascular disease) [I25.10] Vitaliy Nobles MD [facility] Procedures PRO PERC TRLUML CORONARY STENT W/ANGIO ONE ART/BRANCH CARDIAC CATHETERIZATION STENT PLACEMENT-SINGLE MAJOR CORONARY ARTERY OR BRANCH [facility] [place] [address] Referral ID Status Reason Start Date Expiration Date Visits Requ ested Visits Authorized [id number] 1 1 Encounter Details Date Type Department Care Team Description 01/30/2022 Surgery Bulk Station Operator Asa Coulter MD CARDIAC CATHETERIZATION [facility] [place] [address] [place] [address] [phone] (Wo rk) Social History Tobacco Use Types [...] and Clopidogrel. Please follow up with your power system dispatcher in the next 4-6 weeks. We have made a referral to cardiac rehab. Please see the attached instructions regarding care to your right wrist access site. AttachmentsThe following attachments cannot be sent through Care Everywhere. Coronary Angiogram: Post-op (Dominican)documented in this encounter Medications at Time of [...] J, RN - 01/30/2022 4:54 PM EDT [facility] Short Stay Unit Discharge Note All [...] recent PCI presenting for staged PCI to [facility]. The pt states he has been [...] recent PCI presenting for staged PCI to [facility]. The indications, expected benefits, and potential [...] had referred him to cardiac rehab at [facility] last month per HF team. He was waiting until this intervention before starting the program. Reviewed managing angina /use of sl nitroglycerin. Given parameters for home exercise. 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 We discussed short walks several times per day. Will send [facility] his discharge summary from this admission. The patient should be contacted by the Program within 1- 2 weeks from discharge. Brief Op Note - Vitaliy Nobles MD - 01/30/2022 10:19 AM EDT Images from the original note were [place] [address] CORONARY ANGIOGRAM AND PERCUTANEOUS CORONARY INTERVENTION REPORT Patient: Don Fatima : 1945 MR number: [id number] Date of Service: 01/30/2022 Clinical Social Worker: Vitaliy Nobles MD Fellow: KEYON Elizabeth [...] a long 2.0 x 26 mm HARDEEP [place] TUCKER stent and positioned it at the [...] using a 2.0 x 26 mm HARDEEP [place] TUCKER stent. This completes the revascularization ofall [...] [facility] er [address] [place] [address] (Wo rk) 05/28/2022 Laboratory Appointment Lab 05/28/2022 Office Visit Zulma Garrison MD [facility] [place] [address] Liz Poole PA [facility] [place] [address] 06/10/2022 Office Visit Dermatology Laura Scherer MD [facility] ER DR LEZAMA RD-[facility] [facility] [place] [address] (Wo rk) Scheduled Orders Name Type [...] [facility] 6.10 [facility] x10(3)/[facility] LABORATORY Lymphocytes % 16.3 % [facility] LABORATORY Lymphocytes Abs 0.9 0.9 - 3.2 [facility] x10(3)/[facility] LABORATORY Monocytes % 10.0 % [facility] LABORATORY Monocyte Abs 0.6 0.3 - 0.9 [facility] x10(3)/[facility] LABORATORY Eosinophils % 0.5 % [facility] LABORATORY Eosinophils Abs 0.0 0.0 - 0.4 [facility] x10(3)/[facility] LABORATORY Basophils % 0.5 % [facility] LABORATORY Basophils Abs 0.0 0.0 - 0.1 [facility] x10(3)/[facility] LABORATORY Immature Gran % 0.90 [...] Abs 0.05 (H) 0.00 - 0.04 x10(3)/[facility] LABORATORY Specimen Anatomical Collection Method Collection Time Receive d Time (Source) Location / / Volume Laterality Blood 01/30/2022 2:12 PM 2 2:37 EDT PM EDT Resulting Agency Comment Spec In Lab Eddi Elizabeth Jr., MD HEMATOLOGY ORDERABLES Performing Organization Address City/State/ZIP [place] [address] (ABNORMAL) Hemogram (01/30/2022 2:12 PM EDT) Analysis Performed At Patho logist Time Signature WBC 5.5 4.0 - 9.5 [facility] x10(3)/[facility] LABORATORY RBC 4.30 (L) 4.58 - [facility] 5.54 [facility] x10(6)/[facility] LABORATORY Hemoglobin 12.7 (L) 13.7 - [place] 16.5 g/dL [facility] LABORATORY Hematocrit 39.4 (L) 40.5 - [place] 48.5 % [facility] LABORATORY MCV 91.6 82.9 - [place] 93.1 [facility] LABORATORY MCH 29.5 27.5 - [place] 32.1 pg [facility] LABORATORY MCHC 32.2 32.0 - [place] 35.7 g/dL [facility] LABORATORY Platelets 172 145 - 357 [facility] x10(3)/[facility] LABORATORY RDWSD 54.5 (H) 36.0 - [place] 45.0 [facility] LABORATORY RDWCV 16.4 (H) 11.4 - [place] 13.8 % [facility] LABORATORY MPV 9.2 7.6 - 12.9 [place] [facility] LABORATORY nRBC % Auto 0.0 % [facility] LABORATORY nRBC Abs Auto 0.000 0.000 - [place] 0.000 [facility] x10(3)/[facility] LABORATORY Specimen Anatomical Collection Method Collection Time Receive d Time (Source) Location / / Volume Laterality Blood 01/30/2022 2:12 PM 2 2:37 EDT PM EDT Resulting Agency Comment Spec In Lab Eddi Elizabeth Jr., MD HEMATOLOGY ORDERABLES Performing Organization Address City/State/ZIP [place] [address] (ABNORMAL) Basic Metabolic Panel (non-fasting) (01/30/2022 2:12 PM EDT) athologist Signature Glucose Lvl 163 65 - 199 [facility] LABORATORY Comment: [...] Organization Address City/State/ZIP [place] [address] POCT Glucose (01/30/2022 1:41 PM EDT) athologist Signature POC Glucose 148 65 - 199 [facility] mg/dL [facility] LABORATORY Comment: Supplemental ranges: <140 mg/dL before meals <180 mg/dL all other times of the day Specimen Anatomical Collection Method Collection Time Receive d Time (Source) Location / / Volume Laterality Blood 01/30/2022 1:41 PM 2 1:41 EDT PM EDT Vitaliy oNbles MD POINT OF CARE TEST ORDERABLE S Performing Organization Address City/[facility]/ZIP Code Phon e Number [address] POCT Glucose (01/30/2022 10:48 AM EDT) P athologist Signature POC Glucose 193 65 - 199 [facility] mg/dL [facility] LABORATORY Comment: Supplemental ranges: <140 mg/dL before meals <180 mg/dL all other times of the day Specimen Anatomical Collection Method Collection Time Receive d Time (Source) Location / / Volume Laterality Blood 01/30/2022 10:48 01/30/2022 AM EDT 10:48 AM EDT Vitaliy Nobles MD POINT OF CARE TEST ORDERABLE S Performing Organization Address [facility] [place] [address] EKG 12 Lead (01/30/2022 10:33 AM EDT) Component Value Ref Range Test Analysis Performed Pathologis t Method Time At Signature Ventricular rate 64 BPM MUSE SYSTEM Atrial Rate 64 BPM MUSE SYSTEM P-R Interval 162 ms MUSE SYSTEM QRS Duration 94 ms MUSE SYSTEM Q-T Interval 422 ms MUSE SYSTEM QTC Calculated 435 ms MUSE SYSTEM (Bezet) Calculated P Dawson 41 degrees MUSE SYSTEM Calculated R Dawson -27 degrees MUSE SYSTEM Calculated T Dawson 104 degrees MUSE SYSTEM INTERPRETATION Normal sinus rhythm MUSE SYSTEM Anterolateral infarct (cited on or before 09-DEC-2021) Abnormal ECG When compared with ECG of 10-DEC-2021 11:17, No significant change was found Confirmed by Gary Perez ([id number]) on 01/30/2022 5:57:5 2 PM Specimen Anatomical Collection Method Collection Time Receive d Time (Source) Location / / Volume Laterality 01/30/2022 10:33 01/30/2022 5:57 AM EDT PM EDT Vitaliy Nobles MD ECG ORDERABLES Performing Organization Address City/[facility]/ZIP Code Phon e Number MUSE SYSTEM CARDIAC CATHETERIZATION (01/30/2022 10:16 AM EDT) Anatomical Region Laterality Modality Other Specimen (Source) Anatomical Location Collection Method / Collectio n Time Received Time / Laterality Volume Narrative 01/30/2022 2:09 PM EDT ?[facility] ? Cardiac Cathete rization/Intervention Report ? Patient Name: Don Fatima. ? Procedure Date: 01/30/2022 ? A #: [id number] ? Primary Physician: Nobles, Vitaliy P ? Case #: [id number] ? File Name: [id number] ? Catheterization Order Number: [id number] ? [facility] ? Final Report [place], [place] ? Patient Name: ? Don E. Stewa rt ? ID#: ?[id number] ? : ?1945 ? Procedure Date: ? [...] was Urgent. The indication for ?the label machine operator visit is stable kn own CAD. [...] guiding catheter an d a 3.[address] [facility] [address] ??20 Mhz ?using Manual pullback. ??Imagin [...] A premounted 2.00 x 26 mm Hardeep [place] (TUCKER) ? was deployed wi a maximum [...] Wedelivered along 2.0 x 26 mm HARDEEP [place] ? TUCKER stent and p ositioned it [...] administered prior to arrival in the label machine operator. ?Recommended anti-platelet/anti- thrombotic regimen: ?Continue aspirin [...] may require ?modification of this regimen. [facility] for ?questions. ?The 1 [...] using a 2.0 x 26 mm HARDEEP [place] TUCKER stent. ?This completes the revasculariz ation [...] Procedure Note Vitaliy Nobles MD - 03/06/2022 [facility] Cardiac Catheterization/Intervention Re port Patient Name: Don Fatima Procedure Date: 01/30/2022 A #: [id number] Primary Physician: Vitaliy Nobles Case #: [id number] File Name: [id number] Catheterization Order Number: [id number] [facility] [place], [place] Patient Name: Don Fatima ID#: [...] was Urgent. The indication for the label machine operator visit is stable known CAD. Chest [...] 1.5 guiding catheter and a 3.[address] [facility] [address] 20 Mhz using Manual pullback. Imaging [...] A premounted 2.00 x 26 mm Hardeep [place] (TUCKER) was deployed with a maximum inflation [...] along 2. 0 x 26 mm HARDEEP [place] TUCKER stent and positioned it at the [...] prior t o arrival in the label machine operator. Recommended anti-platelet/anti-thrombot ic regimen: Continue aspirin [...] of this regimen. Consult [facility] Interventional Cardiology for questions. The 1 year [...] using a 2.0 x 26 mm HARDEEP [place] TUCKER stent. This completes the revascularization of [...] POC Glucose 212 (H) 65 - 199 [facility] mg/dL [facility] LABORATORY Comment: Supplemental ranges: <140 mg/dL before meals <180 mg/dL all other times of the day Specimen Anatomical Collection Method Collection Time Receive d Time (Source) Location / / Volume Laterality Blood 01/30/2022 9:04 AM 2 9:04 EDT AM EDT Vitaliy Nobles MD POINT OF CARE TEST ORDERABLE S Performing Organization Address City/State/[place] [address] (ABNORMAL) POCT Glucose (01/30/2022 8:10 AM EDT) athologist Signature POC Glucose 224 (H) 65 - 199 [facility] mg/dL [facility] LABORATORY Comment: Supplemental ranges: <140 mg/dL before meals <180 mg/dL all other times of the day Specimen Anatomical Collection Method Collection Time Receive d Time (Source) Location / / Volume Laterality Blood 01/30/2022 8:10 AM 2 8:10 EDT AM EDT Vitaliy Nobles MD POINT OF CARE TEST ORDERABLE S Performing Organization Address City/State/[place] [address] documented in this encounter [...] Given 02/2022 10:11 AM EDT 100 mcg (SED MIDDLE SCHOOL TEACHER) ONCE PRN, Starting on Wed01/30/22 at 0927, [...] Procedure), Routine niCARdipine (Cardene) (100 mcg/mL) dilution (SED MIDDLE SCHOOL TEACHER) (CANCELED ) 0927 (Given - Provider: [...] (Intra-Procedure) documented in this encounter Care Teams Cloth Mercerizer Operator Relationship Specialty Start Date End Date Lovely Vicente MD PCP - General 04/16/[address] [place] [address] documented as of this encounter
--- OUTSIDE RECORDS SUMMARY | 2022-05-01 08:51 | XMS_ITS | Encounter Summary ---
:1945 Author Organization [facility] Address [facility] [place] [address] Care Team Providers Name Role Phone Lovely Vicente MD Primary Care Provider Reason for Visit Reason Onset Date Comments Medication Refill 04/09/2022 Jardiance Encounter Details Date Type Department Care Team Description 04/09/2022 Refill Cardiology at [facility] Liz Poole PA Medication Refill [facility] (Ja rdiance) [place] [address] Cardiology Dept [phone] [place], [place] [address] (Wo rk) Social History Tobacco [...] Dolan MD [facility] er Dr [place] 0[address] (Wo rk) 05/28/2022 Laboratory Appointment Lab 05/28/2022 Office Visit Cardiology Zulma Dolan MD [facility] [place] [address] Liz Poole PA [facility] [place] [address] 06/10/2022 Office Visit Dermatology Laura Scherer MD [facility] ER [address] [place], [place] [address] (Wo rk) documented as of this encounter Visit Diagnoses Diagnosis Chronic systolic heart failure documented in this encounter Care Teams Supply Chain Specialist Relationship Specialty Start Date End Date Lovely Vicente MD PCP - General 04/16/[address] [place] [address] documented as of this encounter
--- OUTSIDE RECORDS SUMMARY | 2022-05-01 08:51 | XMS_ITS | Encounter Summary ---
:1945 Author Organization [facility] [place] [address] Care Team Providers Name Role Phone Lovely Vicente MD Primary Care Provider Reason for Visit Reason Onset Date Comments Follow-up 02/23/2022 Medication adjustmen t and new med Encounter Details Date Type Department Care Team Description 02/23/2022 Telephone Cardiology [place] [facility] Martha Comer, Follow-up ([facility] RN adjustbrandon t and new med) [place] [address] Social History Tobacco Use Types Packs/Day [...] the order for BMP and sent to [facility]. will call [facility] to make an appointment for next [...] tablet) daily. She will correct his pill strategic planner to the new dose. Will need to check with STEPHANIE Poole about repeat BMP to recheck K+ level. If yes he will get the test done at [facility]. They are aware that he will need to make an appt at [facility] to get the test done. Entresto: [...] if he qualifies for assistance from the [employer]. She is thankful for the assistance, as he is taking insulin that is very expensive too. Instructed to call this telegraphic typewriter installer, if he does qualify for assistance from [employer] and that he has gotten the medication [...] Dolan MD [facility] [place], [place] [address] (Wo rk) 05/28/2022 Laboratory Appointment Lab 05/28/2022 Office Visit Cardiology Zulma Dolan MD [facility] [place] [address] Liz Poole PA [facility] [place] [address] 06/10/2022 Office Visit Dermatology Laura Scherer MD [facility] DR [address] [place], [place] [address] (Wo rk) documented as of this encounter Visit Diagnoses Not on filedocumented in this encounter Care Teams Sound Equipment Mechanic Relationship Specialty Start Date End Date Lovely Vicente MD PCP - General 04/16/[address] [place] [address] documented as of this encounter
--- OUTSIDE RECORDS SUMMARY | 2022-05-01 08:51 | XMS_ITS | Encounter Summary ---
:1945 Author Organization [facility] [place] [address] Care Team Providers Name Role Phone Lovely Vicente MD Primary Care Provider Reason for Visit Auth/Cert Specialty Diagnoses / Procedures Referred By Contact Refer red To Contact Diagnoses ASCVD (arteriosclerotic cardiovascular disease) [I25.10] Vitaliy Nobles MD [facility] Procedures PRO PERC TRLUML CORONARY STENT W/ANGIO ONE ART/BRANCH CARDIAC CATHETERIZATION STENT PLACEMENT-SINGLE MAJOR CORONARY ARTERY OR BRANCH [facility] [place] [address] Referral ID Status Reason Start Date Expiration Date Visits Requ ested Visits Authorized [id number] 1 1 Encounter Details Date Type Department Care Team Description 01/30/2022 Laboratory Lab 3L Katalina ASCVD (arterios clerotic Appointment [facility] cardiovas cular disease) [place] [address] Social History Tobacco Use Types Packs/Day Years [...] Zulma Dolan MD [facility] [place], [place] [address] (Wo rk) 05/28/2022 Laboratory Appointment Lab 05/28/2022 Office Visit Cardiology Zulma Dolan MD [facility] [place] [address] Liz Poole PA [facility] [place] [address] 06/10/2022 Office Visit Dermatology Laura Scherer MD [facility] DR [address] [place], [place] [address] (Wo rk) documented as of [...] (ABNORMAL) Differential, Automated (01/30/2022 7:19 AM EDT) [facility] gist Method Time Signature Neutrophils % 77.9 % [facility] LABORATORY Neutr Abs (ANC) 5.31 1.70 - [facility] 6.10 [facility] x10(3)/[facility] LABORATORY Lymphocytes % 12.0 % [facility] LABORATORY Lymphocytes Abs 0.8 (L) 0.9 - 3.2 [facility] x10(3)/[facility] LABORATORY Monocytes % 8.1 % [facility] LABORATORY Monocyte Abs 0.6 0.3 - 0.9 [facility] x10(3)/[facility] LABORATORY Eosinophils % 0.4 % [facility] LABORATORY Eosinophils Abs 0.0 0.0 - 0.4 [facility] x10(3)/[facility] LABORATORY Basophils % 0.6 % [facility] LABORATORY Basophils Abs 0.0 0.0 - 0.1 [facility] x10(3)/[facility] LABORATORY Immature Gran % 1.00 % [facility] LABORATORY Comment: Immature [...] Organization Address City/State/[place] [address] (ABNORMAL) Hemogram (01/30/2022 7:19 AM EDT) Analysis Performed At Patho logist Time Signature WBC 6.8 4.0 - 9.5 [facility] x10(3)/[facility] LABORATORY RBC 4.32 (L) 4.58 - [facility] 5.54 [facility] x10(6)/[facility] LABORATORY Hemoglobin 13.0 (L) 13.7 - [facility] 16[facility] g/dL [facility] LABORATORY Hematocrit 39.8 (L) 40.5 - [facility] 48.5 % [facility] LABORATORY MCV 92.1 82.9 - [facility] 93.1 fL [facility] LABORATORY MCH 30.1 27.5 - [facility] 32.1 pg [facility] LABORATORY MCHC 32.7 32.0 - [place] RYAN 35.7 g/dL [facility] LABORATORY Platelets 172 145 - 357 [facility] x10(3)/[facility] LABORATORY RDWSD 54.5 (H) 36.0 - [place] RYAN 45.0 [facility] LABORATORY RDWCV 16.2 (H) 11.4 - [facility] 13.8 % [facility] LABORATORY MPV 9.0 7.6 - 12.9 [facility] LABORATORY nRBC % Auto 0.0 % [facility] LABORATORY nRBC Abs Auto 0.000 0.000 - [facility] 0.000 [facility] x10(3)/[facility] LABORATORY Specimen Anatomical Collection Method Collection Time Receive d Time (Source) Location / / Volume Laterality Blood 01/30/2022 7:19 AM 7:21 EDT AM EDT Resulting Agency Comment Spec In Lab Zulma BROWN HEMATOLOGY ORDERABLES Performing Organization Address City/State/[place] [address] (ABNORMAL) Basic Metabolic Panel (non-fasting) (01/30/2022 7:19 AM EDT) P athologist Signature Glucose Lvl 237 (H) 65 - 199 [facility] mg/dL [facility] LABORATORY Comment: Diabetes: >=200 mg/dL plus symp toms BUN 34 (H) 10 - 20 mg/dL [facility] LABORATORY Creatinine 1.45 0.80 - 1.50 [...] 15 mmol/L [facility] LABORATORY Calcium 9.5 8.5 - 10.5 [...] City/State/ZIP Code Phon e Number [place] [phone] HOSPITAL LAB[address] documented in this encounter Visit Diagnoses Diagnosis ASCVD (arteriosclerotic cardiovascular d isease) Unspecified cardiovascular disease documented in this encounter Care Teams Forklift Wheel Loader Relationship Specialty Start Date End Date Lovely Vicente MD PCP - General 04/16/[address] [place] [address] documented as of this encounter
--- OUTSIDE RECORDS SUMMARY | 2022-05-01 08:51 | XMS_ITS | Encounter Summary ---
:1945 Author Organization [facility] [place] [address] Care Team Providers Name Role Phone Lovely Vicente MD Primary Care Provider Encounter Details Date Type Department Care Team Description 02/23/2022 Refill Cardiology at [facility] Liz Poole PA [facility] ([facility] [place] [address] Cardiology Dept [phone] [place], [place] [address] (Wo rk) Social History Tobacco [...] Oneill RPH Transfer of Services Don Fatima [address] [place] [address] [place] [address] Telephone Information: Work Phone Not on file. The [facility] has received a prescription for Entresto for patient Mr. Don Fatima 76 y.o. (1945). The patient requests the prescription to be filled with [facility]. We spoke to patient to notify of this change and to provide number to reach the new filling pharmacy. A copyof patient's medication profile was offered to the accepting pharmacy. Additional instructions provided to patient about transfer: no The patient has been advised to call the [facility] at [phone] with any questionsor concerns on this referral. Thank you, Oxana Oneill RPH 02/23/22 4:26 PM Patient understands no changes to current drug regimen were made at this time. documented in this encounter Plan of Treatment Upcoming Encounters Date Type Specialty Care Team Description 05/28/2022 Appointment Cardiology Zulma Dolan MD [facility] [place], [place] [address] (Wo rk) 05/28/2022 Laboratory Appointment Lab 05/28/2022 Office Visit Cardiology Zulma Dolan MD [facility] [place] [address] Liz Poole PA [facility] [place] [address] 06/10/2022 Office Visit Dermatology Laura Scherer MD [facility] DR TE[address]DERMAT [place], [place] [address] (Wo rk) documented as of this encounter Visit Diagnoses Not on filedocumented in this encounter Care Teams Labor Law Professor Relationship Specialty Start Date End Date Lovely Vicente MD PCP - General 04/16/[address] [place] [address] documented as of this encounter
--- OUTSIDE RECORDS SUMMARY | 2022-05-01 08:51 | XMS_ITS | Clinical Summary ---
:1945 Author Organization [facility] [place] [address] Care Team Providers Name Role Phone Lovely [...] documented spasm; ASHD (arteriosc lerotic heart disease) from Last 3 Months Immunizations Name [...] Dolan MD [facility] Dr [place], [place] [address] (Wo rk) 05/28/2022 Laboratory Appointment Lab 05/28/2022 Office Visit Cardiology Zulma Dolan MD [facility] [place] [address] Liz Poole PA [facility] [place] [address] 06/10/2022 Office Visit Dermatology Laura Scherer MD [facility] [address] TEJA GR[address]DERMAT [place], [place] [address] (Wo rk) Health Maintenance Due Date Last Done Comments Covid-19 Vaccine (#1) 1950 Pneumoccocal Vaccine: 65+ (1 - PCV) 1952 Hepatitis C Screening 1964 Tdap adult 1965 Tetanus vaccine 1965 Zoster vaccine (1 of 2) 1996 Colonoscopy 01/16/2019 01/16/2014, 01/16/2014 Influenza (Flu) vaccine (1 of 1 - 03/26/2022 03/29/2013, Influenza standard series) Medical Devices Implanted Type Area Stove Bottom Worker Device Shelf Model / Identifier Expiration Serial / Date Lot Cable,Cut,Edg,Blnt,Ss,3tpr ([id number]) - [id number] IMPLANTS Midline: [employer] 04/01/2022 [id number] / Implanted: Qty: 4 on 07/07/2017 by Yuan Retana MD [facility] [employer] - / [id number] Procedures Procedure Name Priority Date/Time Associated Diagnosis [...] Time Signature WBC 7.2 4.0 - 9.5 [facility] x10(3)/[facility] LABORATORY RBC 4.41 (L) 4.58 - [place] R[facility]AN 5.54 [facility] x10(6)/[facility] LABORATORY Hemoglobin 13.2 (L) 13.7 - [place] 16.5 g/dL [facility] LABORATORY Hematocrit 40.9 40.5 - [facility] RYAN 48.5 % [facility] LABORATORY MCV 92.7 82.9 - [facility] RYAN 93.1 [facility] LABORATORY MCH 29.9 27.5 - [place] R[facility] 32.1 pg [facility] LABORATORY MCHC 32.3 32.0 - [facility] RYAN 35.7 g/dL [facility] LABORATORY Platelets 191 145 - 357 [facility] x10(3)/[facility] LABORATORY RDWSD 53.6 (H) 36.0 - [place] [facility] 45.0 [facility] LABORATORY RDWCV 15.6 (H) 11.4 - [place] [facility] 13.8 % [facility] LABORATORY MPV 8.7 7.6 - 12.9 [facility] nRBC % Auto 0.0 % [facility] LABORATORY nRBC Abs Auto 0.000 0.000 - [place] [facility] 0.000 [facility] x10(3)/[facility] LABORATORY Specimen Anatomical Collection Method Collection Time Receive d Time (Source) Location / / Volume Laterality Blood 02/19/2022 8:06 AM 2 8:09 EDT AM EDT Resulting Agency Comment Spec In Lab Liz BROWN HEMATOLOGY ORDERABLES Performing Organization Address City/State/ZIP [place] [address] (ABNORMAL) Differential, Automated (02/19/2022 8:06 AM EDT)Only the most recent of3 resultswithin the time period is included. [facility] Method Time Signature Neutrophils % 76.0 % [facility] LABORATORY Neutr Abs (ANC) 5.49 1.70 - [facility] 6.10 [facility] x10(3)/[facility] LABORATORY Lymphocytes % 10.8 % [facility] LABORATORY Lymphocytes Abs 0.8 (L) 0.9 - 3.2 [facility] x10(3)/[facility] LABORATORY Monocytes % 10.2 % [facility] LABORATORY Monocyte Abs 0.7 0.3 - 0.9 [facility] x10(3)/[facility] LABORATORY Eosinophils % 1.2 % [facility] LABORATORY Eosinophils Abs 0.1 0.0 - 0.4 [facility] x10(3)/[facility] LABORATORY Basophils % 0.8 % [facility] LABORATORY Basophils Abs 0.1 0.0 - 0.1 [facility] x10(3)/[facility] LABORATORY Immature Gran % 1.00 [...] Liz BROWN HEMATOLOGY ORDERABLES Performing Organization Address City/[facility]/ZIP Code Phon e Number [address] (ABNORMAL) pro-Brain Natriuretic Peptide (02/19/2022 8:06 AM EDT) P athologist Signature ProBNP 984 (H) <=449 pg/mL [facility] LABORATORY Specimen Anatomical Collection Method Collection Time Receive d Time (Source) Location / / Volume Laterality Blood 02/19/2022 8:06 AM 2 8:09 EDT AM EDT Resulting Agency Comment Spec In Lab Zulma Plunkett MD CHEMISTRY ORDERABLES Performing Organization Address City/[facility]/ZIP Code Phon e Number [address] POCT Glucose (01/30/2022 1:41 PM EDT)Only the most recent of4 resultswithin the time period is included. athologist Signature POC Glucose 148 65 - 199 [facility] mg/dL [facility] LABORATORY Comment: Supplemental ranges: <140 mg/dL before meals <180 mg/dL all other times of the day Specimen Anatomical Collection Method Collection Time Receive d Time (Source) Location / / Volume Laterality Blood 01/30/2022 1:41 PM 2 1:41 EDT PM EDT Vitaliy Nobles MD POINT OF CARE TEST ORDERABLE S Performing Organization Address City/[facility]/ZIP [facility] [place] [address] EKG 12 Lead (01/30/2022 10:33 AM EDT) Component Value Ref Range Test Analysis Performed Pathologis t Method Time At Signature Ventricular rate 64 BPM MUSE SYSTEM Atrial Rate 64 BPM MUSE SYSTEM P-R Interval 162 ms MUSE SYSTEM QRS Duration 94 ms MUSE SYSTEM Q-T Interval 422 ms MUSE SYSTEM QTC Calculated 435 ms MUSE SYSTEM (Bezet) Calculated P [place] 41 degrees MUSE SYSTEM Calculated R [place] -27 degrees MUSE SYSTEM Calculated T [place] 104 degrees MUSE SYSTEM INTERPRETATION Normal sinus rhythm MUSE SYSTEM Anterolateral infarct (cited on or before 09-DEC-2021) Abnormal ECG When compared with ECG of 10-DEC-2021 11:17, No significant change was found Confirmed by Gary Perez ([id number]) on 01/30/2022 5:57:5 2 PM Specimen Anatomical [...] Laterality Volume Narrative 01/30/2022 2:09 PM EDT ?[facility] ? Cardiac Cathete rization/Intervention Report ? Patient Name: Don Fatima. ? Procedure Date: 01/30/2022 ? A #: [id number] ? Primary Physician: Nobles, Vitaliy P ? Case #: [id number] ? File Name: [id number] ? Catheterization Order Number: [id number] ? [facility] ?Accounts Receivable [facility] ? Final Report [place], [place] ? Patient Name: ? Don E. Stewa rt ? ID#: ?[id number] ? : ?1945 ? Procedure Date: ? [...] patient was ?designated as ASA Class III. [facility] clinical frailty scale is 5: Mildly [...] Urgent. The indication for ?the dental laboratory worker visit is stable kn own CAD. Chest [...] guiding catheter an d a 3.5 Fr [place] [facility] [address] ??20 Mhz ?using Manual pullback. ??Imagin [...] ?? A premounted 2.00 x 26 mm [place] Childress (TUCKER) ? was deployed wi th a [...] Wedelivered along 2.0 x 26 mm HARDEEP Childress ? TUCKER stent and p ositioned it [...] prior to arrival in the dental laboratory worker. ?Recommended anti-platelet/anti- thrombotic regimen: ?Continue aspirin 81 [...] require ?modification of this regimen. C onsult [facility] Interventional Cardiology for ?questions. ?The 1 year [...] using a 2.0 x 26 mm HARDEEP Childress TUCKER stent. ?This completes the revasculariz ation [...] Procedure Note Vitaliy Nobles MD - 03/06/2022 [facility] Cardiac Catheterization/Intervention Re port Patient Name: Don Fatima Procedure Date: 01/30/2022 A #: [id number] Primary Physician: Vitaliy Nobles Case #: [id number] File Name: [id number] Catheterization Order Number: [id number] [facility] Accounts Receivable Administrator [facility] Final Report [place], [place] Patient Name: Don Fatima ID#: [...] Urgent. The indication for the dental laboratory worker visit is stable known CAD. Chest pain [...] 1.5 guiding catheter and a 3.5 Fr [place] [facility] [address] 20 Mhz using Manual pullback. Imaging [...] A premounted 2.00 x 26 mm Hardeep Childress (TUCKER) was deployed with a maximum inflation [...] along 2. 0 x 26 mm HARDEEP Childress TUCKER stent and positioned it at the [...] t o arrival in the dental laboratory worker. Recommended anti-platelet/anti-thrombot ic regimen: Continue aspirin 81 [...] using a 2.0 x 26 mm HARDEEP Childress TUCKER stent. This completes the revascularization of [...] T ype Group Dates MEDICARE MEDICARE PART [id number] 2011-Prese [phone] [place] [address] [employer] [place] [id number] 2018-Prese [phone] [address] [place] [address] [place] [address] Advance Directives Documents on File Type Date Recorded Patient Mat Cutter Explanati on Advance Directives and Living 03/28/2013 [...] capacity to make decision: Yes Care Teams Detention Officer Relationship Specialty Start Date End Date Lovely Vicente MD PCP - General 04/16/[address] [place] [address] [address] [place] [address]
--- OUTSIDE RECORDS SUMMARY | 2022-05-01 08:52 | XMS_ITS | Encounter Summary ---
:1945 Author Organization [facility] [place] [address] Care Team Providers Name Role Phone Lovely Vicente MD Primary Care Provider Reason for Visit Reason Onset Date Comments Medication Refill 12/12/2021 Torsemide Encounter Details Date Type Department Care Team Description 12/12/[address] [facility] Janneth Padilla, Medication Refill [facility] STEPHANIE (Torsemide) [place] [address] CARDIOLOGY DEPT. [place], [place] [address] (Wo rk) Social History [...] [facility] er [place], [place] [address] (Wo rk) 05/28/2022 Laboratory Appointment Lab 05/28/2022 Office Visit Cardiology Zulma Dolan MD [facility] [place] [address] Liz Poole PA [facility] [place] [address] 06/10/2022 Office Visit Dermatology Laura Scherer MD [facility] ER DR [address] [place], [place] [address] (Wo rk) documented as of this encounter Visit Diagnoses Diagnosis Chronic systolic heart failure documented in this encounter Care Teams Cricket Coach Relationship Specialty Start Date End Date Lovely Vicente MD PCP - General 04/16/[address] [place] [address] documented as of this encounter
--- OUTSIDE RECORDS SUMMARY | 2022-05-01 08:52 | XMS_ITS | Encounter Summary ---
:1945 Author Organization [place] [address] Care Team Providers Name Role Phone Lovely Vicente MD Primary Care Provider Encounter Details Date Type Department Care Team Description 12/25/2021 Laboratory Appointment Lab 3L [facility] [place] [id number] Social History Tobacco Use Types Packs/Day Years [...] MD [facility] [place], [place] [address] (Wo rk) 05/28/2022 Laboratory Appointment Lab 05/28/2022 Office Visit Cardiology Zulma Dolan MD [facility] [place] [address] Liz Poole PA [facility] [place] [address] 06/10/2022 Office Visit Dermatology Laura Scherer MD [facility] [address] [place] [address] (Wo rk) documented as of this encounter [...] (ABNORMAL) Differential, Automated (12/25/2021 7:46 AM EDT) [facility] gist Method Time Signature Neutrophils % 82.6 % [facility] LABORATORY Neutr Abs (ANC) 9.37 (H) 1.70 - [facility] 6.10 [facility] x10(3)/[facility] LABORATORY Lymphocytes % 7.1 % [facility] LABORATORY Lymphocytes Abs 0.8 (L) 0.9 - 3.2 [facility] x10(3)/[facility] LABORATORY Monocytes % 8.8 % [facility] LABORATORY Monocyte Abs 1.0 (H) 0.3 - 0.9 [facility] x10(3)/[facility] LABORATORY Eosinophils % 0.4 % [facility] LABORATORY Eosinophils Abs 0.0 0.0 - 0.4 [facility] x10(3)/[facility] LABORATORY Basophils % 0.4 % [facility] LABORATORY Basophils Abs 0.0 0.0 - 0.1 [facility] x10(3)/[facility] LABORATORY Immature Gran % [...] City/State/ZIP Code Phon e Number [place] [id number] HOSPITAL LAB[address]ORY [address] (ABNORMAL) Hemogram (12/25/2021 7:46 AM EDT) Analysis Performed At Patho logist Time Signature WBC 11.4 (H) 4.0 - 9.5 [facility] x10(3)/[facility] LABORATORY RBC 4.23 (L) 4.58 - [facility] 5.54 [facility] x10(6)/[facility] LABORATORY Hemoglobin 12.3 (L) 13.7 - [facility] 16.5 g/dL [facility] Hematocrit 37.7 (L) 40.5 - [facility] 48.5 % [facility] LABORATORY MCV 89.1 82.9 - [facility] 93.1 [facility] LABORATORY MCH 29.1 27.5 - [place] [facility] 32.1 pg [facility] LABORATORY MCHC 32.6 32.0 - [facility] 35.7 g/dL [facility] LABORATORY Platelets 215 145 - 357 [facility] x10(3)/[facility] LABORATORY RDWSD 49.8 (H) 36.0 - [place] RYAN 45.0 [facility] RDWCV 15.2 (H) 11.4 - [facility] 13.8 % [facility] LABORATORY MPV 9.2 7.6 - 12.9 [facility] LABORATORY nRBC % Auto 0.0 % [facility] LABORATORY nRBC Abs Auto 0.000 0.000 - [facility] 0.000 [facility] x10(3)/[facility] LABORATORY Specimen Anatomical Collection Method Collection Time Receive d Time (Source) Location / / Volume Laterality Blood 12/25/2021 7:46 AM 8:01 EDT AM EDT Resulting Agency Comment Spec In Lab Liz BROWN HEMATOLOGY ORDERABLES Performing Organization Address City/State/[place] [address] (ABNORMAL) Basic Metabolic Panel (non-fasting) (12/25/2021 7:46 AM EDT) P athologist Signature Glucose Lvl 272 (H) 65 - 199 [facility] mg/dL [facility] LABORATORY Comment: Diabetes: >=200 mg/dL plus symp toms BUN 62 (H) 10 - 20 mg/dL [facility] LABORATORY Creatinine 1.81 (H) 0.80 - 1.50 mg/dL [facility] LABORATORY Sodium 134 (L) 135 - 145 mmol/L [facility] LABORATORY Potassium 4.9 3.5 - 5.0 mmol/L [facility] [...] LABORATORY Calcium 9.4 8.5 - 10.5 mg/dL [facility] LABORATORY Estimated GFR 36 (L) [...] Plunkett MD CHEMISTRY ORDERABLES Performing Organization Address City/[facility]/ZIP [place] [address] (ABNORMAL) pro-Brain Natriuretic Peptide (12/25/2021 7:46 AM EDT) P athologist Signature ProBNP 1,380 (H) <=124 [facility] pg/mL [facility] LABORATORY Specimen Anatomical Collection Method Collection Time Receive d Time (Source) Location / / Volume Laterality Blood 12/25/2021 7:46 AM 2 8:01 EDT AM EDT Resulting Agency Comment Spec In Lab Zulma Plunkett MD CHEMISTRY ORDERABLES Performing Organization Address City/[facility]/ZIP [facility] [place] [address] documented in this encounter Visit Diagnoses Diagnosis Chronic systolic heart failure documented in this encounter Care Teams Motion Picture Set Worker Relationship Specialty Start Date End Date Lovely Vicente MD PCP - General 04/16/[address] [place] [address] documented as of this encounter
--- OUTSIDE RECORDS SUMMARY | 2022-05-01 08:52 | XMS_ITS | Encounter Summary ---
:1945 Author Organization [facility] [place] [address] Care Team Providers Name Role Phone Lovely Vicente MD Primary Care Provider Encounter Details Date Type Department Care Team Description 12/15/2021 Telephone Cardiology at [facility] Barbara Mera, [place] [address] Social History Tobacco Use Types Packs/Day [...] Zulma Dolan MD [facility] [place], [place] [address] (Wo rk) 05/28/2022 Laboratory Appointment Lab 05/28/2022 Office Visit Cardiology Zulma Dolan MD [facility] [place] [address] Liz Poole PA [facility] [place] [address] 06/10/2022 Office Visit Dermatology Laura Scherer MD [facility] DR [address] [place], [place] [address] (Wo rk) documented as of this encounter Visit Diagnoses Not on filedocumented in this encounter Care Teams Cop Examiner Relationship Specialty Start Date End Date Lovely Vicente MD PCP - General 04/16/[address] [facility] [address] [place] [address] documented as of this encounter
--- OUTSIDE RECORDS SUMMARY | 2022-05-01 08:52 | XMS_ITS | Encounter Summary ---
:1945 Author Organization [facility] Address [facility] [place] [address] Care Team Providers Name Role Phone Lovely Vicente MD Primary Care Provider Reason for Visit Auth/Cert Specialty Diagnoses / Procedures Referred By Contact Refer red To Contact Diagnoses ASCVD (arteriosclerotic cardiovascular disease) [I25.10] Vitaliy Nobles MD [facility] Procedures PRO PERC TRLUML CORONARY STENT W/ANGIO ONE ART/BRANCH CARDIAC CATHETERIZATION STENT PLACEMENT-SINGLE MAJOR CORONARY ARTERY OR BRANCH [facility] [place] [address] Referral ID Status Reason Start Date Expiration Date Visits Requ ested Visits Authorized [id number] 1 1 Encounter Details Date Type Department Care Team Description 01/30/2022 Hospital Encounter Short Stay Unit at Vitaliy Nobles, CVD (arteriosclerotic cardiovascular disease); Barbara Blue MD 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 Please follow up with your facilities assistant in the next 4-6 weeks. We [...] 01/30/2022 4:54 PM EDT [facility] Short Stay Unit Discharge Note All relevant [...] referred him to cardiac rehab at [facility] last month per HF team. He was waiting until this intervention before starting the program. Reviewed managing angina /use of sl nitroglycerin. Given parameters for home exercise. 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 We discussed short walks several times per day. Will send [facility] his discharge summary from this admission. The patient should be contacted by the Program within 1- 2 weeks from discharge. Brief Op Note - Vitaliy Nobles MD - 01/30/2022 10:19 AM EDT Images from the original note were not included. [facility] [place] [address] CORONARY ANGIOGRAM AND PERCUTANEOUS CORONARY INTERVENTION REPORT Patient: Don Fatima : 1945 MR number: [id number] Date of Service: 01/30/2022 Operations Dispatcher: Vitaliy Nobles MD Fellow: KEYON Elizabeth INDICATION: [...] a long 2.0 x 26 mm HARDEEP Conway TUCKER stent and positioned it at the [...] using a 2.0 x 26 mm HARDEEP Conway TUCKER stent. This completes the revascularization ofall [...] Dolan MD [facility] er [address] [place] 0375 (Wo rk) 05/28/2022 Laboratory Appointment Lab 05/28/2022 Office Visit Cardiology Zulma Dolan MD [facility] [address] [address] Liz Poole PA [facility] [place] [address] 06/10/2022 Office Visit Dermatology Laura Scherer MD [facility] ER [address] [place], [place] [address] (Wo rk) Scheduled Orders Name [...] Abs (ANC) 3.96 1.70 - [facility] 6.10 [facility] x10(3)/[facility] LABORATORY Lymphocytes % 16.3 % [facility] LABORATORY Lymphocytes Abs 0.9 0.9 - 3.2 [facility] x10(3)/[facility] LABORATORY Monocytes % 10.0 % [facility] LABORATORY Monocyte Abs 0.6 0.3 - 0.9 [facility] x10(3)/[facility] LABORATORY Eosinophils % 0.5 % [facility] LABORATORY Eosinophils Abs 0.0 0.0 - 0.4 [facility] x10(3)/[facility] LABORATORY Basophils % 0.5 % [facility] LABORATORY Basophils Abs 0.0 0.0 - 0.1 [facility] x10(3)/[facility] LABORATORY Immature Gran % 0.90 % ST. [...] Abs 0.05 (H) 0.00 - 0.04 x10(3)/[facility] LABORATORY Specimen Anatomical Collection Method Collection Time Receive d Time (Source) Location / / Volume Laterality Blood 01/30/2022 2:12 PM 2 2:37 EDT PM EDT Resulting Agency Comment Spec In Lab Eddi Elizabeth Jr., MD HEMATOLOGY ORDERABLES Performing Organization Address City/State/[place] [address] (ABNORMAL) Hemogram (01/30/2022 2:12 PM EDT) Analysis Performed At Patho logist Time Signature WBC 5.5 4.0 - 9.5 [facility] x10(3)/[facility] LABORATORY RBC 4.30 (L) 4.58 - [place] SU 5.54 [facility] x10(6)/[facility] LABORATORY Hemoglobin 12.7 (L) 13.7 - [place] 16.5 g/dL [facility] LABORATORY Hematocrit 39.4 (L) 40.5 - [place] 48.5 % [facility] LABORATORY MCV 91.6 82.9 - [facility] LABORATORY MCH 29.5 27.5 - [place] ZHAOSU 32.1 pg [facility] LABORATORY MCHC 32.2 32.0 - [place] 35.7 g/dL [facility] LABORATORY Platelets 172 145 - 357 [facility] x10(3)/[facility] LABORATORY RDWSD 54.5 (H) 36.0 - [facility] 45.0 [facility] LABORATORY RDWCV 16.4 (H) 11.4 - [facility] 13.8 % [facility] LABORATORY MPV 9.2 7.6 - 12.9 [facility] LABORATORY nRBC % Auto 0.0 % [facility] LABORATORY nRBC Abs Auto 0.000 0.000 - [facility] 0.000 [facility] x10(3)/[facility] LABORATORY Specimen Anatomical Collection Method Collection Time Receive d Time (Source) Location / / Volume Laterality Blood 01/30/2022 2:12 PM 2 2:37 EDT PM EDT Resulting Agency Comment Spec In Lab Eddi Elizabeth Jr., MD HEMATOLOGY ORDERABLES Performing Organization Address City/State/[place] [address] (ABNORMAL) Basic Metabolic Panel (non-fasting) (01/30/2022 2:12 PM EDT) P athologist Signature Glucose Lvl 163 65 - 199 [facility] mg/dL [facility] LABORATORY Comment: Diabetes: >=200 mg/dL plus symp toms BUN 30 (H) 10 - 20 mg/dL [facility] LABORATORY Creatinine 1.47 0.80 - 1.50 mg/dL [facility] OCK [facility] LABORATORY Sodium 140 135 - 145 mmol/L [...] Organization Address City/State/[place] [address] POCT Glucose (01/30/2022 1:41 PM EDT) athologist Signature POC Glucose 148 65 - 199 [facility] mg/dL [facility] LABORATORY Comment: [...] [facility]/ZIP Code Phon e Number [address] POCT Glucose (01/30/2022 10:48 AM EDT) P athologist Signature POC Glucose 193 65 - 199 [facility] mg/dL [facility] LABORATORY Comment: Supplemental ranges: <140 mg/dL before meals <180 mg/dL all other times of the day Specimen Anatomical Collection Method Collection Time Receive d Time (Source) Location / / Volume Laterality Blood 01/30/2022 10:48 01/30/2022 AM EDT 10:48 AM EDT Vitaliy Sandra Nobles MD POINT OF CARE TEST ORDERABLE S Performing Organization Address [facility] [place] [address] EKG 12 Lead (01/30/2022 10:33 AM EDT) Component Value Ref Range Test Analysis Performed Pathologis t Method Time At Signature Ventricular rate 64 BPM MUSE SYSTEM Atrial Rate 64 BPM MUSE SYSTEM P-R Interval 162 ms MUSE SYSTEM QRS Duration 94 ms MUSE SYSTEM Q-T Interval 422 ms MUSE SYSTEM QTC Calculated 435 ms MUSE SYSTEM (Bezet) Calculated P Perry 41 degrees MUSE SYSTEM Calculated R Perry -27 degrees MUSE SYSTEM Calculated T Perry 104 degrees MUSE SYSTEM INTERPRETATION Normal sinus rhythm MUSE SYSTEM Anterolateral infarct (cited on or before 09-DEC-2021) Abnormal ECG When compared with ECG of 10-DEC-2021 11:17, No significant change was found Confirmed by Gary Perez ([id number]) on 01/30/2022 5:57:5 2 PM Specimen Anatomical Collection Method Collection Time Receive d Time (Source) Location / / Volume Laterality 01/30/2022 10:33 01/30/2022 5:57 AM EDT PM EDT Vitaliy Sandra Nobles MD ECG ORDERABLES Performing Organization Address City/[facility]/ZIP Code Phon e Number MUSE SYSTEM CARDIAC CATHETERIZATION (01/30/2022 10:16 AM EDT) Anatomical Region Laterality Modality Other Specimen (Source) Anatomical Location Collection Method / Collectio n Time Received Time / Laterality Volume Narrative 01/30/2022 2:09 PM EDT ?[facility] ? Cardiac Cathete rization/Intervention Report ? Patient Name: Don Fatima. ? Procedure Date: 01/30/2022 ? A #: [id number] ? Primary Physician: Nobles, Vitaliy P ? Case #: [id number] ? File Name: [id number] ? Catheterization Order Number: [id number] ? [facility] ? Final Report [place], [place] ? Patient Name: ? Don Mccollum. Stewa rt ? ID#: ?[id number] ? : ?1945 ? Procedure Date: ? [...] ?designated as ASA Class III. Th e [facility] clinical frailty scale is 5: [...] was Urgent. The indication for ?the laborer [place] visit is stable kn own CAD. Chest [...] guiding catheter an d a 3.5 Fr [employer] [facility] [place] [address] ??20 Mhz ?using Manual pullback. ??Imagin [...] A premounted 2.00 x 26 mm Hardeep Conway (TUCKER) ? was deployed wi a maximum [...] Wedelivered along 2.0 x 26 mm HARDEEP Conway ? TUCKER stent and p ositioned it [...] administered prior to arrival in the laborer gold leaf. ?Recommended anti-platelet/anti- thrombotic regimen: ?Continue aspirin 81 [...] ?modification of this regimen. C onsult [facility] Interventional Cardiology for ?questions. ?The 1 year bleeding risk as nusrat culated by the PRECISE DAPT score is High ?risk. ?High Bleeding Risk - Anticoagul ation and DAPT: ?- ??Assess ischemic and bleedin g risks using validated risk predictors ?(e.g. CHADS2-VASC, HAS-BLED, [place] ECISE DAPT, DAPT Score) ?- ??Keep anticoagulant [...] using a 2.0 x 26 mm HARDEEP Conway TUCKER stent. ?This completes the revasculariz ation [...] Procedure Note Vitaliy Nobles MD - 03/06/2022 [facility] Cardiac Catheterization/Intervention Re port Patient Name: Don Fatima Procedure Date: 01/30/2022 A #: [id number] Primary Physician: Vitaliy Nobles Case #: [id number] File Name: [id number] Catheterization Order Number: [id number] [facility] Final Report [place], [place] Patient Name: Don Fatima [...] was Urgent. The indication for the laborer [place] visit is stable known CAD. Chest pain [...] 1.5 guiding catheter and a 3.5 Fr [employer] [facility] [place] [address] 20 Mhz using Manual pullback. Imaging [...] atmospheres. A premounted 2.00 x 26 mm [place] Conway (TUCKER) was deployed with a maximum inflation [...] along 2. 0 x 26 mm HARDEEP Conway TUCKER stent and positioned it at the [...] prior t o arrival in the laborer gold leaf. Recommended anti-platelet/anti-thrombot ic regimen: Continue aspirin 81 [...] modification of this regimen. Consult D [facility] Interventional Cardiology for questions. The 1 year [...] using a 2.0 x 26 mm HARDEEP Conway TUCKER stent. This completes the revascularization of [...] POC Glucose 212 (H) 65 - 199 [facility] LAB[facility]ATORY Comment: Supplemental ranges: <140 mg/dL before meals <180 mg/dL all other times of the day Specimen Anatomical Collection Method Collection Time Receive d Time (Source) Location / / Volume Laterality Blood 01/30/2022 9:04 AM 2 9:04 EDT AM EDT Vitaliy Nobles MD POINT OF CARE TEST ORDERABLE S Performing Organization Address City/State/ZIP [place] [address] (ABNORMAL) POCT Glucose (01/30/2022 8:10 AM EDT) athologist Signature POC Glucose 224 (H) 65 - 199 [facility]dL [facility] Comment: Supplemental ranges: <140 mg/dL before meals <180 mg/dL all other times of the day Specimen Anatomical Collection Method Collection Time Receive d Time (Source) Location / / Volume Laterality Blood 01/30/2022 8:10 AM 2 8:10 EDT AM EDT Vitaliy Nobles MD POINT OF CARE TEST ORDERABLE S Performing Organization Address City/State/ZIP [place] [address] documented in this encounter Visit Diagnoses Diagnosis ASCVD (arteriosclerotic cardiovascular d isease) Unspecified cardiovascular disease 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 ASHD (arteriosclerotic heart disease) Coronary atherosclerosis of unspecified type of vessel, [place] or graft ASCVD (arteriosclerotic cardiovascular d isease) Unspecified cardiovascular disease documented in this encounter Admitting Diagnoses Diagnosis CAD (coronary artery disease) Coronary atherosclerosis of unspecified type of vessel, [place] or graft documented in this encounter Administered [...] Routine niCARdipine (Cardene) (100 mcg/mL) dilution (DIRECTOR EPIDEMIOLOGY) (CANCELED ) 0927 (Given - Provider: Vitaliy Nobles MD)0935 (Given - Provider: Vitaliy Nobles MD)0957 (Given - Provider: Vitaliy Nobles MD)1005 (Given - Provider: Vitaliy Nolbes MD)1008 (Given - Provider: Vitaliy Nobles MD)1011 (Given - Provider: Vitaliy Nobles MD) ONCE PRN, Starting on Wed01/30/22 at 0927 , Until Wed01/30/22 at 1229, Intra- Operative (Intra-Procedure), Routine sodium chloride 0.9% infusion (CANCELED) 1013 (New Bag - Provider: Katerin Kay, VAMSI) CONTINUOUS PRN, Starting on Wed01/30/22 a t 1013, Until Wed01/30/22 at 1025, Cath (Intra-Procedure) documented in this encounter Care Teams Asic Engineer Relationship Specialty Start Date End Date Lovely Vicente MD PCP - General 04/16/[address] [place] [address] documented as of this encounter
--- OUTSIDE RECORDS SUMMARY | 2022-05-01 08:52 | XMS_ITS | Encounter Summary ---
:1945 Author Organization [facility] [place] [address] Care Team Providers Name Role Phone Lovely Vicente MD Primary Care Provider Encounter Details Date Type Department Care Team Description 12/12/2021 Telephone Cardiology at [facility] [place] [address] Social History Tobacco Use Types Packs/Day [...] - 12/12/2021 11:36 AM EDT RTC to [employer] regarding pharmacists questions as to whether [...] [facility] [address] [place] [address] (Wo rk) 05/28/2022 Laboratory Appointment Lab 05/28/2022 Office Visit Cardiology Zulma Dolan MD [facility] [place] [address] Liz Poole PA [facility] [place] [address] 06/10/2022 Office Visit Dermatology Laura Scherer MD [facility] DR [address] [place], [place] 0[address] (Wo rk) documented as of this encounter Visit Diagnoses Not on filedocumented in this encounter Care Teams Senior Corporate Accountant Relationship Specialty Start Date End Date Lovely Vicente MD PCP - General 04/16/[address] [place] [address] documented as of this encounter
--- OUTSIDE RECORDS SUMMARY | 2022-05-01 08:52 | XMS_ITS | Encounter Summary ---
:1945 [place] [address] Care Team Providers Name Role Phone Lovely Vicente MD Primary Care Provider Encounter Details Date Type Department Care Team Description 12/30/2021 Notes Only [facility], VAMSI [facility] [place] [address] Social History Tobacco Use Types Packs/Day [...] team. DX: HFrEF. Referral placed to [facility] documented in this encounter Plan of Treatment Upcoming Encounters Date Type Specialty Care Team Description 05/28/2022 Appointment Cardiology Zumla Dolan MD [facility] [address] [place], [place] 0[address] (Wo rk) 05/28/2022 Laboratory Appointment Lab 05/28/2022 Office Visit Cardiology Zulma Dolan MD [facility] [place] [address] Liz Poole PA [facility] [place] [address] 06/10/2022 Office Visit Dermatology Laura Scherer MD [facility] ER [address] [place], [place] [address] (Wo rk) documented as of this encounter Visit Diagnoses Not on filedocumented in this encounter Care Teams Turner Off Relationship Specialty Start Date End Date Lovely Vicente MD PCP - General 04/16/[address] [place] [address] documented as of this encounter
--- OUTSIDE RECORDS SUMMARY | 2022-05-01 08:52 | XMS_ITS | Encounter Summary ---
:1945 Author Organization [facility] [place] [address] Care Team Providers Name Role Phone Lovely Vicente MD Primary Care Provider Reason for Referral Consultation (Routine) - Closed Specialty Diagnoses / Referred By Contact Referred To Contact Procedures Cardiac Rehabilitation Diagnoses Acute HFrEF (heart failure with reduced ejection fraction) Janneth Padilla, Cardiac Rehab, [address] [place] CARDIOLOGY DEPT. [address] [place] [address] Referral ID Status Reason Start Date Expiration Date Visits V isits Requested Authorized [id number] Closed Consult, 12/12/2021 12/12/2022 36 36 Test & Treat Reason for Visit Auth/Cert Specialty Diagnoses / Procedures Referred By Contact Refer red To Contact Diagnoses NSTEMI Procedures emerg ipi Referral ID Status Reason Start Date Expiration Date Visits Requ ested Visits Authorized [id number] 1 1 Encounter Details Date Type Department Care Team Description 12/08/2021 - Hospital Encounter Intermediate Cardiac Iker Cuevas MD [facility] [place] [address] Non-ST elevation myocardial infarction ( NSTEMI); 12/12/2021 Care Unit Ifeanyi Rene MD [facility] [place] [address] ST elevation myocardial infarction (STEM I), unspecified artery; [facility] Acute HFr EF (heart failure with reduced ejection fraction) [place] [address] Social History Tobacco Use Types Packs/Day Years [...] Don Fatima Patient Age: 76 y.o. Language: Kyrgyz Race: White Ethnicity: Not nor Admit date: [...] Peter PA-C Kelly LaFlamme PA-C Cardiovascular Medicine [phone] Discharge Diagnoses (Hospital Problems) and Secondary Diagnoses [...] 3.75 guiding catheter and a 3.5 Fr Stebbins Eye [place] 20 Mhz using Manual pullback. Imaging was successful. Image quality was good. The ostial LCX showed moderate diffuse atherosclerotic plaque with scattered three quadrant calcification. Measurements were performed after pre-dilation. Post Intervention: The stent was well expanded and apposed. Intravascular Ultrasound was performed in the distal LM using a 7 Fr EBU 3.75 guiding catheter and a 3.5 Fr Stebbins Eye [place] 20 Mhz using Manual pullback. Imaging was [...] may require modification of this regimen. Consult [facility] Interventional [...] mg PO daily in place of lasix. [place] is new for him and he will [...] be ~$24/mo; affordable per patient. Post [facility] he was started on Eliquis. He [...] appointments: During 8am-5pm Wednesday through Wednesday call [phone] to speak with a nurse in the cardiology clinic All other times call [phone] and ask to speak to the distributor sales consultant sfdc solution architect. Return to work: One week Driving: No driving for 48 hours after catheterization. Follow up Appointments: PCP Lovely Vicente MD [phone] to see patient at the end of December for annual check up. Patient to see Dr. Lorenzana at 1120 am at December 19 for a post hospital check up. Farm Loan Representative Dr. De Oliveira to see you in [facility]. Left a message for office to set a date and time. Please call [phone] Nobles to see the patient for a same day cath in 2-3 weeks from now. Office to call with a date and time. For questions please call [phone] Home oxygen therapy: N/A Arrangements for VNA/home care: none Future Appointments and Orders Future Orders Complete By Expires Basic Metabolic Panel (non-fasting) [LAB15 Custom] 12/19/2021 (Approximate) 12/12/2022 Process Instructions: INCLUDES: Calcium, BUN, Creat, GFR, Glucose, Lytes Scheduling Instructions: Comments: Questions: Referral to Cardiac Rehab [[id number] Custom] As directed Process Instructions: If no [...] appointments: During 8am-5pm Wednesday through Wednesday call [phone] to speak with a nurse in the cardiology clinic All other times call [phone] and ask to speak to the distributor sales consultant sfdc solution architect. Return to work: One week Driving: No driving for 48 hours after catheterization. Follow up Appointments: PCP Lovely Vicente MD [phone] to see patient at the end of December for annual check up. Patient to see Dr. Lorenzana at 1120 am at December 19 for a post hospital check up. Farm Loan Representative Dr. De Oliveira to see you in [facility]. Left a message for office to set a date and time. Please call [phone] Nobles to see the patient for a same day cath in 2-3 weeks from now. Office to call with a date and time. For questions please call [phone] Home oxygen therapy: N/A Arrangements for VNA/home [...] Progress Note Patient Name: Don Fatima Service: LEVERMAN / PA Responsible Attending: Ifeanyi Truong MD [...] was given Lasix 80mg IV x1 in research laboratory specialist. Tolerated procedure well. Home today at [...] 1.13* 0.92* 0.89* Pertinent Radiographic/Diagnostic Results: R/[facility] 12/10/21 Hemodynamics: Right Heart Pressures Resting: [...] with MD Janneth Neville PA 12/12/2021 Pager [phone] Associated attestation - Ifeanyi Truong MD - [...] ratio for each meal) Desirae Jett APRN [facility] Endocrinology Diabetes Management Pager [phone] 20 minutes of this 35 minute visit [...] Progress Note Patient Name: Don Fatima Service: LEVERMAN / PA Responsible Attending: Iker Cuevas MD [...] was given Lasix 80mg IV x1 in research laboratory specialist. Tolerated procedure well. Review of Systems: [...] 1.13* 0.92* 0.89* Pertinent Radiographic/Diagnostic Results: R/[facility] 12/10/21 Hemodynamics: Right Heart Pressures Resting: [...] and answered his questions. Iker Cuevas MD [facility] Total time spent on review of records prior to visit, face to face time with patient during visit, documentation, and coordination of care with other clinicians: 25 minutes. . Iker Cuevas MD - 12/10/2021 12:30 PM EDT Images from the original note were not included. Inpatient Cardiology Progress Note Patient Name: Don Fatmia Service: LEVERMAN / PA Responsible Attending: Iker Cuevas MD [...] was given Lasix 80mg IV x1 in research laboratory specialist. Tolerated procedure well. Review of Systems: [...] ??? heparin (porcine) infusion 1,600 Units/hr (12/09/21 3296) PRN Meds:ipratropium-albuteroL, senna-docusate, bisacodyL, sodium chloride 0.9 [...] 1.13* 0.92* 0.89* Pertinent Radiographic/Diagnostic Results: R/[facility] 12/10/21 Hemodynamics: Right Heart Pressures Resting: [...] Discussed with MD Migdalia Peter PA-C Pager #[phone] 12/10/2021 Cardiology Attending Note I have seen [...] updated and given pictures. Iker Cuevas MD [facility] Total time spent on review of records prior to visit, face to face time with patient during visit, documentation, and coordination of care with other clinicians: 35 minutes. Iker Cuevas MD - 12/09/2021 7:28 AM EDT Images from the original note were not included. Inpatient Cardiology Progress Note Patient Name: Don Fatima Service: LEVERMAN / PA Responsible Attending: Iker Cuevas MD [...] ??? heparin (porcine) infusion 1,600 Units/hr (12/09/21 3837) PRN Meds:ipratropium-albuteroL, sodium chloride 0.9 % (flush), [...] Discussed with MD Migdalia Peter PA-C Pager #[phone] 12/09/2021 Cardiology Attending Note I have seen [...] < 70 -CPAP tonight Iker Cuevas MD [facility] Total time spent on review [...] at [facility] OR ??? PRO AMPUTATION FOOT, TRANSMETATARSAL Right 08/09/2017 AMPUTATION, TRANSMETATARSAL (WRVU 12.71) performed by Yonathan Smith MD at [facility] OR ??? [...] 0.86) performed by Lamar Smith MD at [facility] OR ??? PRO ENDOSCOPY W/VIDEO-ASST [...] for ADRs. Trend troponins. Admission EKG. [facility] 12/09; consented. TTE. Telemetry monitoring, daily [...] #Diet-carb control; n.p.o. 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 3. PAF: currrently in NSR. Have replaced warfarin with heparin 4. PAD: stable 5. DM: stable 6. CKD: will monitor and minimize contrast. Pt very appreciative of Dr. Yuan Retana's care in 2018. Will let him know patient is here. Iker Cuevas MD [facility] documented in this encounter Miscellaneous [...] Type: *No Product type* / Secondary Insurance: [employer] [place] Prescription Coverage: Yes This plan was [...] cath without complications. Migdalia Parker PA-C Pager #[phone] 12/10/2021 Initial Assessments - Nick Georges RN [...] COVID test: Lab Results Component Value Date [id number] Not Detected 12/08/2021 Past medical History: Past [...] 180 days) Any patient receiving care at [facility] must abide by [place] law. The hierarchy [...] The agent with financial power of criminal attorney or a conservator appointed in accordance [...] - standard, cane - straight Home Address: [address] [place] [address] [place] [address] Social & Family Supports: All names listed below confirmed with patient as current and correct Extended Emergency Contact Information Primary Emergency Contact: Kisha Fatima Address: [address] [place] [address] [place] [address] [facility] Mobile Relation: Spouse Secondary Emergency Contact: Elba Swenson Address: [address] [place] Relation: Child Current Care Provided [...] Type: *No Product type* / Secondary Insurance: [email or web address] [facility] Prescription Coverage: Yes Preferred Pharmacy: [facility] Home Delivery [facility] [address] [facility] [address] [address] [place] Status: Patient is a : unable to assess Primary Care Provider: Lovely Vicente MD [phone] Patient/Caregiver Goals of Treatment: Get out of here Potential Needs for Transition of Care: none Agency Referrals: none patient has used [employer] in the past Transportation: no concerns Transportation Anticipated: family or friend will provide Concerns to be Addressed: patient refuses services, discharge planning Assessment: Patient is admitted to [facility] Service pager [phone] for 76 y.o.??male??with h/o??CAD s/p 3vCABG (THOMPSON-LAD, [...] status on current unit. Nick Georges RN logistics administrator, Office of Care Management Pager: [phone] Brief Op Note - Vitaliy Nobles MD - 12/10/2021 8:31 AM EDT Images from the original note were not included. [facility] 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 Diabetes History: Don Fatima has had diabetes for 10 years. He has been on insulin for the last several years andis managed by his PCP. Lives in [place], [place] with his . States that he [...] Hold] heparin (porcine) infusion 1,600 Units/hr (12/09/21 2227) PRN: [SEP Hold] ipratropium-albuteroL, [SEP Hold] senna-docusate, [...] 5 gm carb ratio for each meal) USP diabetes care: Medications - Outpatient treatment regimen recommendations pending based on the hospital course. Monitoring - continue BG tid ac & hs Diet - low fat/low carb diet Exercise - weight-bearing exercise 30 min/day, as tolerated Thank you for allowing us to provide care for your patient Desirae Shaper [facility] Endocrinology Pager [phone] 70 minutes of this [...] for further details. STEPHANIE Rebolledo 12/08/2021 Pager [phone] documented in this encounter Plan of Treatment Upcoming Encounters Date Type Specialty Care Team Description 05/28/2022 Appointment Cardiology Zulma Dolan MD [facility] [place], [place] [address] (Wo rk) 05/28/2022 Laboratory Appointment Lab 05/28/2022 Office Visit Cardiology Zulma Dolan MD [facility] [place] [address] Liz Poole PA [facility] [place] [address] 06/10/2022 Office Visit Dermatology Laura Scherer MD [facility] [address] [place], [place] [address] (Wo rk) Scheduled Referrals Name [...] [facility] mg/dL [facility] LABORATORY [...] City/State/[place] [address] (ABNORMAL) Differential, Automated (12/12/2021 4:51 AM EDT) athologist Signature Neutrophils % 75.4 % [facility] LABORATORY Neutr Abs (ANC) 5.95 1.70 - [facility] 6.10 [facility] x10(3)/[facility] LABORATORY Lymphocytes % 12.2 % [facility] Lymphocytes Abs 1.0 0.9 - 3.[address] [facility] x10(3)/[facility] LABORATORY Monocytes % 9.5 % [facility] Monocyte Abs 0.8 0.3 - 0.[address] [facility] x10(3)/[facility] LABORATORY Eosinophils % 1.8 % [facility]ORY Eosinophils Abs 0.1 0.0 - 0.[address] [facility] x10(3)/[facility] LABORATORY Basophils % 0.5 % [facility]ORY Basophils Abs 0.0 0.0 - 0.[address] [facility] x10(3)/[facility] LABORATORY Immature Gran % 0.60 % [facility] [...] City/State/[place] [address] (ABNORMAL) Hemogram (12/12/2021 4:51 AM EDT) Analysis Performed At Patho logist Time Signature WBC 7.9 4.0 - 9.[address] [facility] x10(3)/[facility] LABORATORY RBC 4.19 (L) 4.58 - [facility] 5.54 [facility] x10(6)/[facility] LABORATORY Hemoglobin 12.1 (L) 13.7 - [facility] 16[facility] g/dL [facility] LABORATORY Hematocrit 36.7 (L) 40.5 - [facility] 48.5 % [facility] LABORATORY MCV 87.6 82.9 - [facility] 93.1 fL [facility] LABORATORY MCH 28.9 27.5 - [facility] 32.1 pg [facility] LABORATORY MCHC 33.0 32.0 - [facility] 35.7 g/dL [facility] LABORATORY Platelets 231 145 - [address] [facility] x10(3)/[facility] LABORATORY RDWSD 47.2 (H) 36.0 - [facility] 45.0 [facility] LABORATORY RDWCV 14.6 (H) 11.4 - [facility] 13.8 % [facility] LABORATORY MPV 9.5 7.6 - 12.9 [facility] LABORATORY nRBC % Auto 0.0 % [facility] LABORATORY nRBC Abs Auto 0.000 0.000 - [facility] 0.000 [facility] x10(3)/[facility] LABORATORY Specimen Anatomical Collection Method Collection Time Receive d Time (Source) Location / / Volume Laterality Blood 12/12/2021 4:51 AM 2 5:06 EDT AM EDT Resulting Agency Comment Spec In Lab Bijan Sun MD HEMATOLOGY ORDERABLES Performing Organization Address City/[facility]/[place] [address] (ABNORMAL) Prothrombin Time (12/12/2021 4:51 AM EDT) P athologist Signature PT 14.9 (H) 9.4 - 12.5 [facility] LABORATORY INR 1.3 [facility] [...] Cuevas MD HEMATOLOGY ORDERABLES Performing Organization Address City/[facility]/[place] [address] (ABNORMAL) BMP w/fasting Glucose (12/12/2021 4:51 AM EDT) athologist Signature Glucose 152 (H) 65 - [address] [facility] Fasting mg/dL [facility] LABORATORY Comment: ?Fasting* Glucose Interpretive C [...] Creatinine 1.72 (H) 0.80 - 1.50 mg/dL [facility] [...] City/State/[place] [address] Magnesium (12/12/2021 4:51 AM EDT) P athologist Signature Magnesium 1.02 0.69 - 1.[address] [facility] mmol/L [facility] LABORATORY Specimen Anatomical Collection Method Collection Time Receive d Time (Source) Location / / Volume Laterality Blood 12/12/2021 4:51 AM 2 5:06 EDT AM EDT Resulting Agency Comment Spec In Lab Iker Cuevas MD CHEMISTRY ORDERABLES Performing Organization Address City/[facility]/[place] [address] POCT Glucose (12/12/2021 3:43 AM EDT) P athologist Signature POC Glucose 138 65 - [address] [facility] mg/dL [facility] LABORATORY [...] City/State/[place] [address] POCT Glucose (12/11/2021 11:44 [...] City/[facility]/[place] [address] (ABNORMAL) POCT Glucose (12/11/2021 8:12 PM EDT) athologist Signature POC Glucose 200 (H) 65 - 199 [facility] mg/dL [facility] LABORATORY Comment: [...] City/[facility]/[place] [address] (ABNORMAL) POCT Glucose (12/11/2021 [...] City/State/[place] [address] (ABNORMAL) POCT Glucose (12/11/2021 4:00 PM EDT) P athologist Signature POC Glucose 383 (H) 65 - 199 [facility] mg/dL [facility] LABORATORY Comment: Supplemental ranges: <140 mg/dL before meals <180 mg/dL all other times of the day Specimen Anatomical Collection Method Collection Time Receive d Time (Source) Location / / Volume Laterality Blood 12/11/2021 4:00 PM 4:00 EDT PM EDT Iker Cuevas MD POINT OF CARE TEST ORDERABLE S Performing Organization Address City/[facility]/[place] [address] (ABNORMAL) POCT Glucose (12/11/2021 12:01 PM EDT) athologist Signature POC Glucose 342 (H) 65 - 199 [facility] mg/dL [facility] LABORATORY Comment: [...] City/[facility]/[place] [address] COVID-19 PCR (12/11/2021 10:13 AM EDT) [facility] gist Method Time Signature SARS-CoV-2 Not Detected Not Detected [facility] RNA [facility] LABORATORY Comment: This result [...] diagnosis of COVID-19 is performed using the [employer] Dianna FRIEDN S-CoV-2 Assay as authorized by the FDA Emergency Use Authorization (EUA). This EUA assay is intended for In-vitro Diagnostic (IVD) use with respiratory sp ecimens such as nasopharyngeal swabs collected from individuals during the ac [place] phase of infection. This assay is performed based on the instructions for use provided by [employer] and additional guidance provided by CDC and FDA. Testing is performed in the Clinical Genomics and Advanced Technolog y Laboratory within the Department of Pathology and Laboratory Medicine at [facility], certified under the Clinical Laboratory [...] fact sheets at the following FDA website: https://www.fda.gov/medical-devices/jkvtjixmipe-ykyjawg-8774-psltj-13-ndbypgwta- rqv-rlmbxerjyhvwvy-wzawjkd-devices/stgqx-nschpcaigda-eusd SARS-Cov-2 RNA Source LEVERMAN Swab [facility] LABORATORY Specimen (Source) Anatomical Collection Method Collection Time Re ceived Time Location / / Volume Laterality Nasopharyngeal Swab 12/11/2021 10:13 05/03/2022 AM EDT 11:16 AM EDT Comment: Symptoms->Surveillance Resulting Agency Comment Spec In Lab Iker Cuevas MD MICROBIOLOGY - GENERAL ORDER [place] Performing Organization Address City/[facility] [place] [address] POCT Glucose (12/11/2021 7:34 AM EDT) athologist Signature POC Glucose 198 65 - 199 [facility] mg/dL [facility] LABORATORY Comment: [...] City/[facility]/[place] [address] (ABNORMAL) POCT Glucose (12/11/2021 5:07 AM EDT) P athologist Signature POC Glucose 208 (H) 65 - 199 [facility] mg/dL [facility] LABORATORY Comment: [...] City/[facility]/ZIP [place] [address] (ABNORMAL) Differential, Automated (12/11/2021 4:28 AM EDT) [facility] Method Time Signature Neutrophils % 79.6 % [facility]ORATORY Neutr Abs (ANC) 7.01 (H) 1.70 - [facility] 6.10 [facility] x10(3)/[facility] LABORATORY Lymphocytes % 9.1 % [facility] LABORATORY Lymphocytes Abs 0.8 (L) 0.9 - 3.[address] [facility] x10(3)/[facility] LABORATORY Monocytes % 9.2 % [facility]ORATORY Monocyte Abs 0.8 0.3 - 0.[address] [facility] x10(3)/[facility] LABORATORY Eosinophils % 1.3 % [facility] Eosinophils Abs 0.1 0.0 - 0.[address] [facility] x10(3)/[facility] LABORATORY Basophils % 0.5 % [facility]OR[facility]ORY Basophils Abs 0.0 0.0 - 0.[address] [facility] x10(3)/[facility] LABORATORY Immature Gran % 0.30 % [facility] [...] [facility] LABORATORY Specimen Anatomical Collection Method Collection Time Receive d Time (Source) Location / / Volume Laterality Blood 12/11/2021 4:28 AM 4:37 EDT AM EDT Resulting Agency Comment Spec In Lab Bijan Sun MD HEMATOLOGY ORDERABLES Performing Organization Address City/[facility]/ZIP [place] [address] (ABNORMAL) Hemogram (12/11/2021 4:28 AM EDT) Analysis Performed At Patho logist Time Signature WBC 8.8 4.0 - 9.[address] [facility] x10(3)/[facility] LABORATORY RBC 4.15 (L) 4.58 - [facility] 5.54 [facility] x10(6)/[facility] LABORATORY Hemoglobin 11.9 (L) 13.7 - [facility] 16.5 g/dL [facility] LABORATORY Hematocrit 36.9 (L) 40.5 - [facility] 48.5 % [facility] LABORATORY MCV 88.9 82.9 - [facility] 93.1 [facility] LABORATORY MCH 28.7 27.5 - [facility] 32.1 pg [facility] LABORATORY MCHC 32.2 32.0 - [facility] 35.7 g/dL [facility] LABORATORY Platelets 211 145 - [address] [facility] x10(3)/[facility] LABORATORY RDWSD 48.3 (H) 36.0 - [facility] 45.0 [facility] LABORATORY RDWCV 14.8 (H) 11.4 - [facility] 13.8 % [facility] LABORATORY MPV 9.6 7.6 - 12.9 [facility] LABORATORY nRBC % Auto 0.0 % [facility]ORATORY nRBC Abs Auto 0.000 0.000 - [facility] 0.000 [facility] x10(3)/[facility] LABORATORY Specimen Anatomical Collection Method Collection Time Receive d Time (Source) Location / / Volume Laterality Blood 12/11/2021 4:28 AM 2 4:37 EDT AM EDT Resulting Agency Comment Spec In Lab Bijan Sun MD HEMATOLOGY ORDERABLES Performing Organization Address City/State/ZIP [place] [address] (ABNORMAL) Prothrombin Time (12/11/2021 4:28 AM EDT) P athologist Signature PT 17.7 (H) 9.4 - 12.5 [facility] LABORATORY INR 1.6 [facility] [...] City/State/[place] [address] HOSPITAL LABORATORY Drive (ABNORMAL) BMP w/fasting Glucose (12/11/2021 4:28 AM EDT) athologist Signature Glucose 207 (H) 65 - [address] [facility] Fasting mg/dL [facility] LABORATORY Comment: ?Fasting* Glucose Interpretive C [...] LABORATORY Creatinine 1.43 0.80 - 1.50 mg/dL [facility] [...] [facility] LABORATORY Estimated GFR 48 [...] Cuevas MD CHEMISTRY ORDERABLES Performing Organization Address City/[facility] [place] [address] Magnesium (12/11/2021 4:28 AM EDT) P athologist Signature Magnesium 1.04 0.69 - 1.07 [facility]/L [facility] LABORATORY Specimen Anatomical Collection Method Collection Time Receive d Time (Source) Location / / Volume Laterality Blood 12/11/2021 4:28 AM 2 4:37 EDT AM EDT Resulting Agency Comment Spec In Lab Iker Cuevas MD CHEMISTRY ORDERABLES Performing Organization Address City/State/ZIP Code Phon e Number [place] [id number] HOSPITAL LABORATORY Drive POCT Glucose (12/11/2021 3:58 [...] City/[facility]/[place] [address] (ABNORMAL) POCT Glucose (12/10/2021 [...] City/[facility]/[place] [address] (ABNORMAL) POCT Glucose (12/10/2021 [...] City/State/ZIP [place] [address] Potassium (12/10/2021 7:46 PM EDT) athologist Signature Potassium 4.2 3.5 - 5.[address] [facility] mmol/L [facility] Comment: Please note: ??Patients with [...] Cuevas MD CHEMISTRY ORDERABLES Performing Organization Address City/[facility]/[place] [address] (ABNORMAL) Basic Metabolic Panel (non-fasting) (12/10/2021 6:12 PM EDT) athologist Signature Glucose Lvl 246 (H) 65 - [address] [facility] mg/dL [facility] Comment: Diabetes: >=200 mg/dL plus symp toms BUN 50 (H) 10 - 20 mg/dL [facility] Creatinine 1.39 0.80 - 1.50 mg/dL [facility] [...] Cuevas MD CHEMISTRY ORDERABLES Performing Organization Address City/[facility]/ZIP [place] [address] POCT Glucose (12/10/2021 4:59 PM EDT) P athologist Signature POC Glucose 158 65 - [address] [facility] mg/dL [facility] LABORATORY [...] City/State/ZIP [place] [address] (ABNORMAL) POCT Glucose (12/10/2021 12:43 PM EDT) P athologist Signature POC Glucose 241 (H) 65 - 199 [facility] mg/dL [facility] Comment: [...] City/State/ZIP Code Phon e Number [facility] [address] EKG 12 Lead (12/10/2021 11:17 AM EDT) Component Value Ref Range Test Analysis Performed Pathologis t Method Time At Signature Ventricular rate 62 BPM MUSE SYSTEM Atrial Rate 62 BPM MUSE SYSTEM P-R Interval 142 ms MUSE SYSTEM QRS Duration 100 ms MUSE SYSTEM Q-T Interval 434 ms MUSE SYSTEM QTC Calculated 440 ms MUSE SYSTEM (Bezet) Calculated P [place] 34 degrees MUSE SYSTEM Calculated R [place] -39 degrees MUSE SYSTEM Calculated T [place] 92 degrees MUSE SYSTEM INTERPRETATION Normal sinus [...] Laterality Volume Narrative 12/10/2021 12:04 PM EDT ?[facility] ? Cardiac Cathete rization/Intervention Report ? Patient Name: Don Fatima. ? Procedure Date: 12/10/2021 ? A #: [id number] ? Primary Physician: Nobles, Vitaliy P ? Case #: [id number] ? File Name: [id number] ? Catheterization Order Number: [id number] ? [facility] ? Final Report [place], [place] ? Patient Name: ? Don E. Stewa rt ? ID#: ?[id number] ? : ?1945 ? Procedure Date: ? December 10, 2021 ? Case #: ? [id number] ? Room: ? 1 ? Case Physician: [...] ?designated as ASA Class III. e [facility] clinical frailty scale is 5: Mildly [...] procedure was Urgent. The indication for ?the research laboratory specialist visit is ACS great er than [...] ?3.75 guiding catheter and a 3.5 Fr [facility] 20 Mhz using Manual ?pullback. ??Imaging was [...] ?3.75 guiding catheter and a 3.5 Fr [facility] 20 Mhz using Manual ?pullback. ??Imaging was [...] may require ?modification of this regimen. C [facility] Interventional Cardiology for ?questions. ?The [...] Procedure Note Vitaliy Nobles MD - 01/14/2022 [facility] Cardiac Catheterization/Intervention Re port Patient Name: Kushal Don VedaMadiha Procedure Date: 12/10/2021 A #: [id number] Primary Physician: Vitaliy Nobles Case #: [id number] File Name: [id number] Catheterization Order Number: [id number] [facility] [employer] [facility] Final Report [place], [place] Patient Name: Don Fatima ID#: [...] e was Urgent. The indication for the research laboratory specialist visit is ACS greater than 24 [...] and a 3.5 Fr [facility] 20 Mhz using Manual pullback. Imaging was [...] and a 3.5 Fr [facility] [place] 20 Mhz using Manual pullback. Imaging was successful. Image quality was good. The distal LM showed moderate diffuse atherosclero tic plaque. Post Intervention: The stent was well e xpanded and apposed. Indication for Intervention: Coronary intervention was indicated for primary therapy for an acute myocardial infarction. The priority for the procedure was Urgent. The [facility] indication for the procedure was [...] this regimen. Consult [facility] Interventional Cardiology for [...] [facility] mg[facility]dL [facility] LABORATORY [...] City/State/Z[place] [address] (ABNORMAL) POCT Glucose (12/10/2021 9:48 AM EDT) athologist Signature POC Glucose 279 (H) 65 - [address] [facility] mg/dL [facility] LABORATORY [...] City/State/[place] [address] (ABNORMAL) POCT Glucose (12/10/2021 9:07 AM EDT) P athologist Signature POC Glucose 268 (H) 65 - [address] [facility] mg/dL [facility] LABORATORY [...] City/State/[place] [address] (ABNORMAL) Point of Care Blood Gas Historical (12/10/2021 9:04 AM EDT) Patholo gist Method Time Signature POC pH 7.40 7.35 - [facility] 7.45 [facility] POC PCO2 40 35 - [address] [facility] mmHg [facility] POC PO2 63 (L) 85 - 104 [facility] LABORATORY POC Base Excess 0.0 -3.0 - 3.0 [facility] K mmol/L [facility]OR[facility] POC HCO3 24.8 20.0 - [facility] 26.0 [facility] mmol/[facility] LABORATORY POC Sodium 143 135 - [address] [facility] mmol/L [facility]OR[facility] POC Potassium 3.7 3.5 - 5.[address] [facility] mmol/L [facility] POC Ionized Ca 1.07 (L) 1.15 - [facility] 1.33 [facility] mmol/L HOSPITAL LABORATORY POC Hematocrit 30.0 (L) 40.0 - [facility] 51.0 % [facility] LABOR[facility]ORY POC Calc Hgb 10.2 (L) 13.7 - [facility] 17.5 g/dL [facility] Comment: The calculation of hemoglobin f rom hematocrit assumes a normal MCHC. POC Bgas Loc CC LAB [facility] LABORATORY Specimen Anatomical Collection Method Collection Time Receive d Time (Source) Location / / Volume Laterality Blood 12/10/2021 9:04 AM 2 EDT 12:00 PM EDT Ifeanyi Truong MD CHEMISTRY ORDERABLES Performing Organization Address City/[facility]/[place] [address] (ABNORMAL) POCT Glucose (12/10/2021 7:19 AM EDT) athologist Signature POC Glucose 274 (H) 65 - [address] [facility] mg/dL [facility] LABORATORY [...] City/[facility]/[place] [address] Heparin (unfractionated) Level (12/10/2021 4:25 AM EDT) athologist Signature Heparin UFH 0.69 IU/mL [facility] LABORATORY Comment: Heparin (anti-Xa) levels [...] Address City/State/ZIP Code Phon e Number [address] (ABNORMAL) Differential, Automated (12/10/2021 4:25 AM EDT) [facility] Method Time Signature Neutrophils % 79.8 % [facility] LABORATORY Neutr Abs (ANC) 7.47 (H) 1.70 - [facility] 6.10 [facility] x10(3)/[facility] LABORATORY Lymphocytes % 10.6 % [facility] Lymphocytes Abs 1.0 0.9 - 3.[address] [facility] x10(3)/[facility] LABORATORY Monocytes % 8.4 % [facility] Monocyte Abs 0.8 0.3 - 0.[address] [facility] x10(3)/[facility] LABORATORY Eosinophils % 0.6 % [facility] Eosinophils Abs 0.1 0.0 - 0.[address] [facility] x10(3)/[facility] LABORATORY Basophils % 0.2 % [facility] Basophils Abs 0.0 0.0 - 0.[address] [facility] x10(3)/[facility] LABORATORY Immature Gran % 0.40 % [facility] [...] 0.04 0.00 - 0.04 x10(3)/[facility] LABORATORY Specimen Anatomical Collection Method Collection Time Receive d Time (Source) Location / / Volume Laterality Blood 12/10/2021 4:25 AM 4:34 EDT AM EDT Resulting Agency Comment Spec In Lab Morgan BROWN HEMATOLOGY ORDERABLES Performing Organization Address City/[facility]/ZIP Code Phon e Number [address] (ABNORMAL) Hemogram (12/10/2021 4:25 AM EDT) Analysis Performed At Patho logist Time Signature WBC 9.4 4.0 - 9.[address] [facility] x10(3)/[facility] LABORATORY RBC 3.81 (L) 4.58 - [facility] 5.54 [facility] x10(6)/[facility] LABORATORY Hemoglobin 11.1 (L) 13.7 - [facility] 16.5 g/dL [facility]OR[facility]ORY Hematocrit 34.0 (L) 40.5 - [facility] 48.5 % [facility]ATORY MCV 89.2 82.9 - [facility] 93[facility]1 [facility] LABORATORY MCH 29.1 27.5 - [facility] 32.1 pg [facility]ORATORY MCHC 32.6 32.0 - [facility] 35.7 g/dL [facility]ORY Platelets 183 145 - [address] [facility] x10(3)/[facility] LABORATORY RDWSD 49.9 (H) 36.0 - [facility] 45.0 [facility] LABORATORY RDWCV 15.2 (H) 11.4 - [facility] 13.8 % [facility] LABORATORY MPV 9.8 7.6 - 12.9 [facility] LABORATORY nRBC % Auto 0.0 % [facility] LABOR[facility] nRBC Abs Auto 0.000 0.000 - [facility] 0.000 [facility] x10(3)/[facility] LABORATORY Specimen Anatomical Collection Method Collection Time Receive d Time (Source) Location / / Volume Laterality Blood 12/10/2021 4:25 AM 2 4:34 EDT AM EDT Resulting Agency Comment Spec In Lab Morgan BROWN HEMATOLOGY ORDERABLES Performing Organization Address City/State/ZIP [place] [address] (ABNORMAL) Prothrombin Time (12/10/2021 4:25 AM EDT) P athologist Signature PT 20.0 (H) 9.4 - 12.5 [facility] LABORATORY INR 1.7 [facility] [...] City/State/ZIP Code Phon e Number [place] [id number] HOSPITAL LABORATORY Drive (ABNORMAL) BMP w/fasting Glucose (12/10/2021 4:25 AM EDT) athologist Signature Glucose 210 (H) 65 - [address] [facility] Fasting mg/dL [facility] LABORATORY Comment: ?Fasting* Glucose Interpretive C [...] Creatinine 1.52 (H) 0.80 - 1.50 mg/dL [facility] [...] Calcium 8.0 (L) 8.5 - 10.5 mg/dL [facility] [...] City/State/ZIP [place] [address] Magnesium (12/10/2021 4:25 AM EDT) P athologist Signature Magnesium 0.95 0.69 - 1.07 [facility]/L [facility]ORY Specimen Anatomical Collection Method Collection Time Receive d Time (Source) Location / / Volume Laterality Blood 12/10/2021 4:25 AM 2 4:34 EDT AM EDT Resulting Agency Comment Spec In Lab Iker Cuevas MD CHEMISTRY ORDERABLES Performing Organization Address City/[facility]/[place] [address] POCT Glucose (12/10/2021 1:58 AM EDT) athologist Signature POC Glucose 164 65 - 199 [facility] Comment: [...] City/[facility]/[place] [address] (ABNORMAL) POCT Glucose (12/09/2021 9:02 PM EDT) athologist Signature POC Glucose 313 (H) 65 - 199 [facility] mg/dL [facility] Comment: [...] City/[facility]/[place] [address] Heparin (unfractionated) Level (12/09/2021 7:30 PM EDT) athologist Signature Heparin UFH 0.48 IU/mL [facility] LABORATORY Comment: Heparin (anti-Xa) levels [...] City/State/ZIP [place] [address] (ABNORMAL) Basic Metabolic Panel (non-fasting) (12/09/2021 7:30 PM EDT) athologist Signature Glucose Lvl 372 (H) 65 - [address] [facility] mg/dL [facility] LABOR[facility]ORY Comment: Diabetes: >=200 mg/dL plus symp toms BUN 56 (H) 10 - 20 mg/dL [facility] LABORATORY Creatinine 1.75 (H) 0.80 - 1.50 mg/dL [facility] [...] [facility] Estimated GFR 37 [...] City/State/[place] [address] (ABNORMAL) POCT Glucose (12/09/2021 6:34 PM EDT) P athologist Signature POC Glucose 408 (H) 65 - 199 [facility] mg/dL [facility]OR[facility]ORY Comment: [...] City/[facility]/[place] [address] (ABNORMAL) POCT Glucose (12/09/2021 6:32 PM EDT) P athologist Signature POC Glucose 356 (H) 65 - 199 [facility] mg/dL [facility] LABOR[facility]ORY Comment: [...] City/State/[place] [address] (ABNORMAL) POCT Glucose (12/09/2021 4:19 PM EDT) athologist Signature POC Glucose 347 (H) 65 - [address] [facility] mg/dL [facility] LABORATORY [...] City/[facility]/[place] [address] Heparin (unfractionated) Level (12/09/2021 1:29 PM EDT) athologist Signature Heparin UFH 0.42 IU/mL [facility] LABORATORY Comment: Heparin (anti-Xa) levels [...] City/State/[place] [address] (ABNORMAL) POCT Glucose (12/09/2021 12:02 PM EDT) P athologist Signature POC Glucose 235 (H) 65 - 199 [facility] mg/dL [facility] Comment: [...] City/[facility]/[place] [address] (ABNORMAL) POCT Glucose (12/09/2021 9:44 AM EDT) P athologist Signature POC Glucose 214 (H) 65 - 199 [facility] mg/dL [facility] Comment: Supplemental ranges: <140 mg/dL before meals <180 mg/dL all other times of the day Specimen Anatomical Collection Method Collection Time Receive d Time (Source) Location / / Volume Laterality Blood 12/09/2021 9:44 AM 9:44 EDT AM EDT Iker Cuevas MD POINT OF CARE TEST ORDERABLE S Performing Organization Address City/[facility]/[place] [address] EKG 12 Lead (12/09/2021 7:57 AM EDT) Component Value Ref Range Test Analysis Performed Pathologis t Method Time At Signature Ventricular rate 101 BPM MUSE SYSTEM Atrial Rate 101 BPM MUSE SYSTEM P-R Interval 150 ms MUSE SYSTEM QRS Duration 112 ms MUSE SYSTEM Q-T Interval 364 ms MUSE SYSTEM QTC Calculated 471 ms MUSE SYSTEM (Bezet) Calculated P [place] 59 degrees MUSE SYSTEM Calculated R [place] -42 degrees MUSE SYSTEM Calculated T [place] 102 degrees MUSE SYSTEM INTERPRETATION Sinus tachycardia Occasional Premature ventricular com plexes MUSE SYSTEM Left axis deviation 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) Abnormal ECG When compared with ECG of 08-DEC-2021 16:40, Premature ventricular complexes are now Present Confirmed by MD Fernandez Danette ([id number]) on 12/10/2021 4:55:06 PM Specimen Anatomical Collection [...] [facility] mg/dL [facility] LABORATORY [...] City/State/[place] [address] (ABNORMAL) Hemoglobin A1c (12/09/2021 [...] Mellitus, Diabetes Care 2013; 36: Suppl. 1, Y27-05 Est Avg Gluc See note mg/dL [place] [...] into estimated average glucose values. ??Diabetes Care 2008:31(8):4781-6768. Specimen Anatomical Collection Method Collection Time Receive d Time (Source) Location / / Volume Laterality Blood Venous Draw / 12/09/2021 6:18 AM 12/10/19 22 Unknown EDT 12:24 PM EDT Resulting Agency Comment Spec In Lab Migdalia BROWN CHEMISTRY ORDERABLES Performing Organization Address City/State/ZIP [place] [address] (ABNORMAL) Prothrombin Time (12/09/2021 6:18 AM EDT) athologist Signature PT 26.6 (H) 9.4 - 12.5 [facility] LABORATORY INR 2.3 [facility] [...] Migdalia BROWN HEMATOLOGY ORDERABLES Performing Organization Address City/[facility]/ZIP Code Phon e Number [address] Heparin (unfractionated) Level (12/09/2021 6:18 AM EDT) P athologist Signature Heparin UFH 0.24 IU/mL [facility] LABORATORY Comment: Heparin (anti-Xa) levels [...] Cuevas MD HEMATOLOGY ORDERABLES Performing Organization Address City/[facility]/[place] [address] (ABNORMAL) Differential, Automated (12/09/2021 6:18 AM EDT) Patholo gist Method Time Signature Neutrophils % 91.5 % [facility]ORATORY Neutr Abs (ANC) 15.78 (H) 1.70 - [facility] 6.10 [facility] x10(3)/[facility] L LABORATORY Lymphocytes % 2.9 % [facility]ORATORY Lymphocytes Abs 0.5 (L) 0.9 - 3.[address] [facility] x10(3)/[facility] LABORATORY Monocytes % 4.9 % [facility] Monocyte Abs 0.8 0.3 - 0.[address] [facility] x10(3)/[facility] LABORATORY Eosinophils % 0.0 % [facility] Eosinophils Abs 0.0 0.0 - 0.[address] [facility] x10(3)/[facility] LABORATORY Basophils % 0.2 % [facility] Basophils Abs 0.0 0.0 - 0.[address] [facility] x10(3)/[facility] LABORATORY Immature Gran % 0.50 % [facility] [...] City/State/ZIP [place] [address] (ABNORMAL) Hemogram (12/09/2021 6:18 AM EDT) Analysis Performed At Patho logist Time Signature WBC 17.2 (H) 4.0 - 9.[address] [facility] x10(3)/[facility] LABORATORY RBC 4.32 (L) 4.58 - [facility] 5.54 [facility] x10(6)/[facility] LABORATORY Hemoglobin 12.6 (L) 13.7 - [facility] 16.5 g/dL [facility] LABORATORY Hematocrit 38.9 (L) 40.5 - [facility] 48.5 % [facility] LABORATORY MCV 90.0 82.9 - [facility] 93.1 [facility] LABORATORY MCH 29.2 27.5 - [facility] 32.1 pg [facility] LABORATORY MCHC 32.4 32.0 - [facility] 35.7 g/dL [facility] LABORATORY Platelets 193 145 - [address] [facility] x10(3)/[facility] LABORATORY RDWSD 50.4 (H) 36.0 - [facility] 45.0 [facility] LABORATORY RDWCV 15.2 (H) 11.4 - [facility] 13.8 % [facility] LABORATORY MPV 9.5 7.6 - 12.9 [facility] LABORATORY nRBC % Auto 0.0 % [facility]ORATORY nRBC Abs Auto 0.000 0.000 - [facility] x10(3)/[facility] LABORATORY Specimen Anatomical Collection Method Collection Time Receive d Time (Source) Location / / Volume Laterality Blood 12/09/2021 6:18 AM 6:33 EDT AM EDT Resulting Agency Comment Spec In Lab Morgan BROWN HEMATOLOGY ORDERABLES Performing Organization Address City/State/ZIP [place] [address] Lipid Panel (Reflex Direct LDL) (12/09/2021 6:18 AM EDT) P athologist Signature Chol, Total 105 mg/dL [facility] LABORATORY Comment: Lower Risk: <200 mg/dL Average Risk: 200-239 mg/dL Higher Risk: >pl=673 mg/dL Triglycerides 133 mg/dL [facility] LABORATORY Comment: Average Risk/Lower Risk: <150 mg/dL Borderline High Risk: 150-199 mg/dL High Risk: 200-499 mg/dL Very High Risk: >ts=807 mg/dL HDL 42 mg/dL [facility] LABORATORY Comment: Males: ?? Higher Risk: <40 mg/dL Females: ?? Higher Risk: <50 mg/dL LDL Cholesterol 36 mg/dL [facility] Comment: Lowest Risk: <100 mg/dL Lower Risk: 100-129 mg/dL Borderline High Risk: 130-159 mg/dL High Risk: 160-189 mg/dL Very High Risk: >wf=613 mg/dL Chol/HDL Ratio 2.5 ratio [facility] LAB[facility] Lipid Interpretation See Note [facility] LABORATORY Comment: Lipid management should be guided by a p atient? s ASCVD risk, goals and preferences. ACC/AHA Guidelines recommend high intens ity statin if clinical ASCVD or LDL greater than or equal to 190 mg/dL. [email or web address] Adults aged 40-75 with LDL 70-189 mg/dL should have their 10 year ASCVD risk estimated with the ACC/AHA ASCVD risk es timator http://tools.acc.org/OWGZN-Rqak-Iszbnbhi r/ Statin should be discussed if risk [...] City/State/Z[place] [address] TSH (12/09/2021 6:18 AM EDT) athologist Signature TSH 1.60 0.27 - 4.[address] [facility] mcIU/mL [facility] LABORATORY Comment: Reference Interval (mcIU/mL): Females: ??First Trimester: 0.23-3.88 ??Second Trimester: 0.22-3.90 ??Third Trimester: 0.44-4.66 Specimen Anatomical Collection Method Collection Time Receive d Time (Source) Location / / Volume Laterality Blood 12/09/2021 6:18 AM 2 6:33 EDT AM EDT Resulting Agency Comment Spec In Lab Iker Cuevas MD CHEMISTRY ORDERABLES Performing Organization Address City/[facility]/[place] [address] Hepatic Function Panel (12/09/2021 6:18 AM EDT) athologist Signature Total Protein 7.3 6.1 - 8.0 [facility] g/dL [facility] LABORATORY Albumin 4.2 3.2 - 5.2 [facility] g/dL [facility] LABORATORY AST 25 0 - 39 [facility] unit/L [facility] ALT 15 0 - 55 BARBARA RYAN unit/L [facility] Alk Phos 75 40 - 130 BARBARA RYAN unit/L [facility] Total 1.1 0.2 - 1.3 Room 8 StudioRYAN Bilirubin mg/dL [facility] Bili, Direct 0.2 0.0 - 0.3 BARBARA RYAN mg/dL [facility] Specimen Anatomical Collection Method Collection Time Receive d Time (Source) Location / / Volume Laterality Blood 12/09/2021 6:18 AM 2 6:33 EDT AM EDT Resulting Agency Comment Spec In Lab Iker Cuevas MD CHEMISTRY ORDERABLES Performing Organization Address City/[facility] [place] [address] (ABNORMAL) BMP w/fasting Glucose (12/09/2021 6:18 AM EDT) P athologist Signature Glucose 235 (H) 65 - 99 BARBARA RYAN Fasting mg/dL [facility] Comment: ?Fasting* Glucose Interpretive C [...] Address City/State/ZIP Code Phon e Number [address] Magnesium (12/09/2021 6:18 AM EDT) P athologist Signature Magnesium 0.81 0.69 - 1.[address] [facility] mmol/L [facility] Specimen Anatomical Collection Method Collection Time Receive d Time (Source) Location / / Volume Laterality Blood 12/09/2021 6:18 AM 2 6:33 EDT AM EDT Resulting Agency Comment Spec In Lab Iker Cuevas MD CHEMISTRY ORDERABLES Performing Organization Address City/State/[place] [address] (ABNORMAL) Troponin (12/09/2021 6:18 AM EDT) athologist Signature Troponin-T 1.13 (H) 0.00 - BARBARA DAVIS 0.00 ng/mL [facility] Comment: The 99th percentile for [...] additional sample may be indicated. Reference: Third Romeo Definition of Myocardial Infarction. Journal of the [place] College [employer] 2012;60:1581-98 Specimen Anatomical Collection Method Collection Time Receive d Time (Source) Location / / Volume Laterality Blood 12/09/2021 6:18 AM 6:33 EDT AM EDT Resulting Agency Comment Spec In Lab Iker Cuevas MD CHEMISTRY ORDERABLES Performing Organization Address City/State/ZIP Code Phon e Number [place] [id number]OS[address] LAB[address]ORY [address] XR Chest One View [...] who have questions please contact the health ambulatory care coordinator that requested your imaging first. [...] ho have questions please contact the health ambulatory care coordinator that requested your imaging first. Amber Sanches MD IMG DX ORDERABLES (ABNORMAL) BLOOD GAS 2 ARTERIAL (12/09/2021 5:14 AM EDT) Analysis Performed At Path logis Time Signature pH Art 7.43 7.35 - [facility] 7.45 [facility] pCO2 Art 36 35 - 45 [facility]ORY pO2 Art 67 (L) 85 - 104 [facility] HCO3 Art 23.4 20.0 - [facility] 26.0 [facility] mmol/L [facility] BE Art -0.9 -3.0 - 3.[address] [facility] mmol/L [facility] Hgb Blood Gas 13.2 (L) 13.7 - [facility] 16.5 g/dL [facility] O2HB Art 91.3 (L) 94.0 - [facility] 97.0 % [facility] COHB Art 0.4 % [facility] [...] WB 2.7 (H) 0.5 - 2.2 mmol/L [facility] FIO2 Art 35 % [facility] Flow Art 8.0 LPM [facility] PF Ratio Art 191 [facility] Specimen Anatomical Collection Method Collection Time Receive d Time (Source) Location / / Volume Laterality Blood 12/09/2021 5:14 AM 5:14 EDT AM EDT Iker Cuevas MD CHEMISTRY ORDERABLES Performing Organization Address City/State/ZIP [place] [address] POCT Glucose (12/09/2021 4:46 AM EDT) athologist Signature POC Glucose 198 65 - [address] [facility] mg/dL [facility] [...] City/State/[place] [address] (ABNORMAL) POCT Glucose (12/09/2021 3:01 AM EDT) athologist Signature POC Glucose 225 (H) 65 - 199 [place] mg/dL [facility] Comment: [...] City/State/[place] [address] (ABNORMAL) POCT Glucose (12/08/2021 10:55 PM EDT) athologist Signature POC Glucose 327 (H) 65 - 199 [place] mg/dL [facility] Comment: [...] City/State/[place] [address] Heparin (unfractionated) Level (12/08/2021 10:03 PM EDT) P athologist Signature Heparin UFH 0.18 IU/mL [facility] Comment: Heparin (anti-Xa) levels [...] City/State/ZIP [place] [address] (ABNORMAL) Troponin (12/08/2021 10:03 PM EDT) athologist Signature Troponin-T 0.92 (H) 0.00 - [facility] 0.00 ng/mL [facility] Comment: The 99th percentile for [...] additional sample may be indicated. Reference: Third Romeo Definition of Myocardial Infarction. Journal of the [place] College of Cardiology 2012;60:1581-98 Specimen Anatomical Collection Method Collection Time Receive d Time (Source) Location / / Volume Laterality Blood 12/08/2021 10:03 12/08/2021 PM EDT 10:31 PM EDT Resulting Agency Comment Spec In Lab Iker Cuevas MD CHEMISTRY ORDERABLES Performing Organization Address City/[facility]/[place] [address] (ABNORMAL) POCT Glucose (12/08/2021 8:22 PM EDT) athologist Signature POC Glucose 429 (H) 65 - 199 [facility] RYAN mg/dL [facility] [...] City/[facility]/[place] [address] (ABNORMAL) POCT Glucose (12/08/2021 [...] City/[facility]/[place] [address] Magnesium (12/08/2021 6:02 PM EDT) athologist Signature Magnesium 0.86 0.69 - 1.[address] [facility] mmol/L [facility] Specimen Anatomical Collection Method Collection Time Receive d Time (Source) Location / / Volume Laterality Blood 12/08/2021 6:02 PM 6:36 EDT PM EDT Resulting Agency Comment Spec In Lab Iker Cuevas MD CHEMISTRY ORDERABLES Performing Organization Address City/State/ZIP Code Phon e Number [address] (ABNORMAL) Basic Metabolic Panel (non-fasting) (12/08/2021 6:02 PM EDT) athologist Signature Glucose Lvl 392 (H) 65 - [address] [facility] mg/dL [facility] Comment: Diabetes: >=200 mg/dL plus symp toms BUN 41 (H) 10 - 20 mg/dL [facility] Creatinine 1.44 0.80 - 1.50 mg/dL [facility] [...] City/State/[place] [address] (ABNORMAL) Differential, Automated (12/08/2021 6:02 PM EDT) [facility] gist Method Time Signature Neutrophils % 89.5 % [facility] Neutr Abs (ANC) 13.97 (H) 1.70 - [facility] 6.10 [facility] x10(3)/[facility] LABORATORY Lymphocytes % 3.7 % [facility] Lymphocytes Abs 0.6 (L) 0.9 - 3.[address] [facility] x10(3)/[facility]ORATORY Monocytes % 6.1 % [facility] Monocyte Abs 1.0 (H) 0.3 - 0.[address] [facility] x10(3)/[facility]ORATORY Eosinophils % 0.0 % [facility] Eosinophils Abs 0.0 0.0 - 0.[address] [facility] x10(3)/[facility] LABORATORY Basophils % 0.2 % [facility] Basophils Abs 0.0 0.0 - 0.[address] [facility] x10(3)/[facility] LABORATORY Immature Gran % 0.50 % [facility] [...] City/State/ZIP [place] [address] (ABNORMAL) Hemogram (12/08/2021 6:02 PM EDT) Analysis Performed At Patho logist Time Signature WBC 15.6 (H) 4.0 - 9.5 [facility] LABORATORY RBC 4.05 (L) 4.58 - [facility] RYAN 5.54 [facility] x10(6)/[facility] LABORATORY Hemoglobin 11.8 (L) 13.7 - [facility] 16.5 g/dL [facility] Hematocrit 35.8 (L) 40.5 - [facility] 48.5 % [facility] MCV 88.4 82.9 - [facility] 93.1 [facility]ATORY MCH 29.1 27.5 - [facility] RYAN 32.1 pg [facility] MCHC 33.0 32.0 - [facility] 35.7 g/dL [facility] Platelets 178 145 - 357 [facility] x[facility](3[facility] LABORATORY RDWSD 49.3 (H) 36.0 - [facility] RYAN 45.0 [facility] LABORATORY RDWCV 15.1 (H) 11.4 - [facility] RYAN 13.8 % [facility] MPV 10.4 7.6 - 12.9 [facility] LABORATORY nRBC % Auto 0.0 % [facility] nRBC Abs Auto 0.000 0.000 - [place] DAVIS 0.000 [facility] x10(3)/[facility] LABORATORY Specimen Anatomical Collection Method Collection Time Receive d Time (Source) Location / / Volume Laterality Blood 12/08/2021 6:02 PM 2 6:36 EDT PM EDT Resulting Agency Comment Spec In Lab Morgan BROWN HEMATOLOGY ORDERABLES Performing Organization Address City/State/ZIP Code [place] [address] (ABNORMAL) Troponin (12/08/2021 6:02 PM EDT) athologist Signature Troponin-T 0.89 (H) 0.00 - BARBAR[place] DAVIS 0.00 ng/mL [facility] Comment: The 99th percentile for [...] additional sample may be indicated. Reference: Third Romeo Definition of Myocardial Infarction. Journal of the [place] College of [employer]iology 2012;60:1581-98 Specimen Anatomical Collection Method Collection Time Receive d Time (Source) Location / / Volume Laterality Blood 12/08/2021 6:02 PM 2 6:36 EDT PM EDT Resulting Agency Comment Spec In Lab Iker Cuevas MD CHEMISTRY ORDERABLES Performing Organization Address City/State/ZIP Code [place] [address] COVID-19 PCR (12/08/2021 5:00 PM EDT) [facility] Method Time Signature SARS-CoV-2 Not Detected Not Detected BARBARA RNA PCR [facility] Comment: This result [...] using the Simplexa COVID-19 Direct Assay by CommitChangejoi marcum as authorized by the FDA issued [...] fact sheets at the following FDA website: https://www.fda.gov/medical-devices/esrykfvhuig-bzzaenp-6311-vvhmd-46-eqqzzxbve- auw-lugdeegsihecim-uzeiblm-devices/kbpdo-hjtbxfdvmxv-lint SARS-CoV-2 Source LEVERMAN Swab [facility] Specimen (Source) Anatomical Collection Method Collection Time Re ceived Time Location / / Volume Laterality Nasopharyngeal Swab 12/08/2021 5:00 12/08 PM EDT 6:03 PM EDT Comment: Symptoms->Surveillance Resulting Agency Comment Spec In Lab Iker Cuevas MD MICROBIOLOGY - GENERAL ORDER ROBSON Performing Organization Address City/[facility] Phon e Number [place] [id number]OS[address] LAB[address]ORY [address] EKG 12 Lead (12/08/2021 4:40 PM EDT) Component Value Ref Range Test Analysis Performed Pathologis t Method Time At Signature Ventricular rate 78 BPM MUSE SYSTEM Atrial Rate 78 BPM MUSE SYSTEM P-R Interval 152 ms MUSE SYSTEM QRS Duration 96 ms MUSE SYSTEM Q-T Interval 396 ms MUSE SYSTEM QTC Calculated 451 ms MUSE SYSTEM (Bezet) Calculated P [place] 44 degrees MUSE SYSTEM Calculated R [place] -31 degrees MUSE SYSTEM Calculated T [place] 124 degrees MUSE SYSTEM INTERPRETATION Normal sinus [...] Cuevas MD ECG ORDERABLES Performing Organization Address City/[facility] Phon e Number MUSE SYSTEM (ABNORMAL) POCT Glucose (12/08/2021 4:34 PM EDT) P athologist Signature POC Glucose 400 (H) 65 - 199 [facility] mg/dL [facility] [...] Code Phon [place] [address] documented in this encounter [...] Coronary atherosclerosis of unspecified type of vessel, skull valley or graft Cardiomyopathy, ischemic Other specified [...] solution 1 mg( Linked Group 2) 08 ([facility] Hold - Provider: Admin Adt - Reason: Transfer to a Procedural area)1230 ([facility] Unhold - Provider: Admin [...] (Glutose) 40% oral geL(Linked Group 2) 08 ([facility] Hold - Provider: Admin Adt - Reason: Transfer to a Procedural area)1230 ([facility] Unhold - Provider: Admin [...] (Intra-Procedure), Routine niCARdipine (Cardene) (100 mcg/mL) dilution (CLOTH BLEACHING RANGE BACK TENDER) (CANCELED) 1030 (Given - Provider: Vitaliy [...] - Reason: Transfer to a Procedural area)1230 ([facility] Unhold - Provider: Admin Adt) 1 tablet, Oral, 2 TIMES DAILY PRN, Start ing on Wed12/09/21 at 1628, Until Wed12/12/21 at 1312, Constipation, Routine sodium chloride 0.9 % (flush) (BD PosiFlush Normal Sean ine 0.9) flush 5-20 mL 08 ([facility] Hold - Provider: Admin Adt - Reason: Transfer to a Procedural area)1230 ([facility] Unhold - Provider: Admin [...] episode. & nbsp; For persistent hypoglycemia, con sas bi developer longer-acting treatment for the duration of [...]
Routine documented in this encounter Care Teams Accessioner Relationship Specialty Start Date End Date Lovely Vicente MD PCP - General 04/16/[address] [place] [address] [address] [place] [address] documented as of this encounter
--- OUTSIDE RECORDS SUMMARY | 2022-05-01 08:52 | XMS_ITS | Encounter Summary ---
:1945 [place] [address] Care Team Providers Name Role Phone Lovely Vicente MD Primary Care Provider Encounter Details Date Type Department Care Team Description 12/25/2021 Office Visit Cardiology at [facility] Liz Poole, Chronic systolic heart [facility] [place] [address] Cardiology Dept [phone] [place], [place] [address] Social History Tobacco Use Types [...] per DC Summary - Admitted to [facility] on 12/08/21, [facility] mg PO daily in place of Lasix. Lanse is new for him and he will [...] regurgitation present. 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 Post-op atrial fibrillation [id number] (CHF, HTN, DM, vascular disease, thromboembolism) [...] MD [facility] [address] [place], [place] [address] (Wo rk) 05/28/2022 Laboratory Appointment Lab 05/28/2022 Office Visit Cardiology Zulma Dolan MD [facility] [place] [address] Liz Poole PA [facility] [place] [address] 06/10/2022 Office Visit Dermatology Laura Scherer MD [facility] ER [address] [place], [place] [address] (Mikayla alcaraz) documented as of this encounter Results (ABNORMAL) pro-Brain Natriuretic Peptide (12/25/2021 7:46 AM EDT) athologist Signature ProBNP 1,380 (H) <=124 [facility] pg/mL [facility] Specimen Anatomical Collection Method Collection Time Receive d Time (Source) Location / / Volume Laterality Blood 12/25/2021 7:46 AM 8:01 EDT AM EDT Resulting Agency Comment Spec In Lab Zulma Plunkett MD CHEMISTRY ORDERABLES Performing Organization Address City/State/[place] [address] (ABNORMAL) Basic Metabolic Panel (non-fasting) (12/25/2021 7:46 AM EDT) athologist Signature Glucose Lvl 272 (H) 65 - 199 [facility] mg/dL [facility] LABORATORY [...] Organization Address City/State/[place] [address] documented in this encounter Visit Diagnoses Diagnosis Chronic systolic heart failure documented in this encounter Care Teams Transport Conductor Relationship Specialty Start Date End Date Lovely Vicente MD PCP - General 04/16/[address] [place] [address] documented as of this encounter
--- OUTSIDE RECORDS SUMMARY | 2022-05-01 08:52 | XMS_ITS | Encounter Summary ---
:[address] [facility] [place] [address] Care Team Providers Name Role Phone Lovely Vicente MD Primary Care Provider Encounter Details Date Type Department Care Team Description 12/24/2021 Orders Only Advertising Coordinator Zulma Finch ASCVD (art eriosclerotic [facility] cardiovascular disease) [facility] [place] [address] [place], [place] [phone] (Work) [phone] Social History Tobacco Use Types Packs/Day Years [...] [facility] [address] [place] [address] (Wo rk) 05/28/2022 Laboratory Appointment Lab 05/28/2022 Office Visit Cardiology Zulma Dolan MD [facility] [place] [address] Liz Poole PA [facility] [place] [address] 06/10/2022 Office Visit Dermatology Laura Scherer MD [facility] [address] [place], [place] 0[address] (Wo rk) documented as of this encounter Visit Diagnoses Diagnosis ASCVD (arteriosclerotic cardiovascular d isease) Unspecified cardiovascular disease documented in this encounter Care Teams Human Projectile Relationship Specialty Start Date End Date Lovely Vicente MD PCP - General 04/16/[address] [place] [address] documented as of this encounter
--- OUTSIDE RECORDS SUMMARY | 2022-05-01 08:52 | XMS_ITS | Encounter Summary ---
:1945 Author Organization [facility] [place] [address] Care Team Providers Name Role Phone Lovely Vicente MD Primary Care Provider Encounter Details Date Type Department Care Team Description 12/24/2021 Telephone Public Health at [facility] [place] [address] Social History Tobacco Use Types Packs/Day [...] Dolan MD [facility] [address] [place], [place] [address] (Wo rk) 05/28/2022 Laboratory Appointment Lab 05/28/2022 Office Visit Cardiology Zulam Dolan MD [facility] [place] [address] Liz Poole PA [facility] [place] [address] 06/10/2022 Office Visit Dermatology Laura Scherer MD [facility] ER [address] [place], [place] [address] (Wo rk) documented as of this encounter Visit Diagnoses Not on filedocumented in this encounter Care Teams Viticulture Teacher Relationship Specialty Start Date End Date Lovely Vicente MD PCP - General 04/16/[address] [place] [address] documented as of this encounter
--- OUTSIDE RECORDS SUMMARY | 2022-05-01 08:52 | XMS_ITS | Encounter Summary ---
:1945 Author Organization [facility] [place] [address] Care Team Providers Name Role Phone Lovely Vicente MD Primary Care Provider Encounter Details Date Type Department Care Team Description 01/28/2022 Orders Only Babysitter Zulma Finch ASCVD (art eriosclerotic [facility] cardiovascular disease) [facility] [address] [place], [place] [phone] (Work) [phone] Social History Tobacco Use Types Packs/Day Years [...] MD [facility] [address] [place] [address] (Wo rk) 05/28/2022 Laboratory Appointment Lab 05/28/2022 Office Visit Cardiology Zulma Dolan MD [facility] [place] [address] Liz Poole PA [facility] [place] [address] 06/10/2022 Office Visit Dermatology Laura Scherer MD [facility] [address] [place], [place] [address] (Wo rk) documented as of this encounter Results (ABNORMAL) Basic Metabolic Panel (non-fasting) (01/30/2022 7:19 AM EDT) athologist Signature Glucose Lvl 237 (H) 65 - 199 [facility] mg/dL [facility] [...] Organization Address City/State/[place] [address] documented in this encounter Visit Diagnoses Diagnosis ASCVD (arteriosclerotic cardiovascular d isease) Unspecified cardiovascular disease documented in this encounter Care Teams Hall Supervisor Relationship Specialty Start Date End Date Lovely Vicente MD PCP - General 04/16/[address] [place] [address] documented as of this encounter
--- OUTSIDE RECORDS SUMMARY | 2022-05-01 08:52 | XMS_ITS | Encounter Summary ---
:1945 Author Organization [facility] [place] [address] Care Team Providers Name Role Phone Lovely Vicente MD Primary Care Provider Reason for Visit Reason Onset Date Comments Advice Only 01/28/2022 Encounter Details Date Type Department Care Team Description 01/28/2022 Telephone Cardiology at [facility] Chitra Angela, bone char [place] [phone] Social History Tobacco Use Types Packs/Day [...] patient with medications. Number for clinical laboratory manager scheduling given and she will call them to verify this information Meds reviewed. As per our form from clinical laboratory manager Eliquis hold for 48 hours prior. [...] Dolan MD [facility] [place], [place] [address] (Wo rk) 05/28/2022 Laboratory Appointment Lab 05/28/2022 Office Visit Cardiology Zulma Dolan MD [facility] [place] [address] Liz Poole PA [facility] [place] [address] 06/10/2022 Office Visit Dermatology Laura Scherer MD [facility] [address] [place], [place] [address] (Wo rk) documented as of this encounter Visit Diagnoses Not on filedocumented in this encounter Care Teams Shale Planer Operator Relationship Specialty Start Date End Date Lovely Vicente MD PCP - General 04/16/[address] [place] [address] documented as of this encounter
--- OUTSIDE RECORDS SUMMARY | 2022-05-01 08:53 | XMS_ITS | Encounter Summary ---
:1945 [place] [address] Care Team Providers Name Role Phone Lovely Vicente MD Primary Care Provider Encounter Details Date Type Department Care Team Description 12/07/2021 Ancillary Procedure [facility] Lovely murillo MD [facility] [address] [address] [place], [place] [phone] (Wo lissa) [phone] Social History Tobacco Use Types Packs/Day Years [...] [facility] [address] [place] [address] (Wo rk) 05/28/2022 Laboratory Appointment Lab 05/28/2022 Office Visit Cardiology Zulma Dolan [place] [address] Liz Poole PA [facility] [place] [address] 06/10/2022 Office Visit Dermatology Laura Scherer MD [facility] [address] [place], [place] [address] (Wo [...] Code Phon e Number [place], [place] documented in this encounter Visit Diagnoses Not on filedocumented in this encounter Care Teams Control Area Operator Relationship Specialty Start Date End Date Lovely Vicente MD PCP - General 04/16/[address] [place] [address] documented as of this encounter
--- OUTSIDE RECORDS SUMMARY | 2022-05-01 08:53 | XMS_ITS | Encounter Summary ---
:1945 Author Organization [facility] [place] [address] Care Team Providers Name Role Phone Lovely Vicente MD Primary Care Provider Encounter Details Date Type Department Care Team Description 03/20/2021 Ancillary Procedure Radiology Library at [place] [address] [place] [address] [phone] Social History Tobacco Use Types Packs/Day Years [...] Dolan MD [facility] [place] [address] [place], [place] [address] (Wo rk) 05/28/2022 Laboratory Appointment Lab 05/28/2022 Office Visit Cardiology Zulma Dolan MD [facility] [place] [address] Liz Poole PA [facility] [place] [address] 06/10/2022 Office Visit Dermatology Laura Scherer MD [facility] ER [address] [place], [place] [address] (Wo rk) documented as [...] Organization Address City/State/ZIP Code Phon e Number [place], [place] documented in this encounter Visit Diagnoses Not on filedocumented in this encounter Care Teams Pneumatic Tester Relationship Specialty Start Date End Date Lovely Vicente MD PCP - General 04/16/[address] [place] [address] documented as of this encounter
--- OUTSIDE RECORDS SUMMARY | 2022-05-01 08:53 | XMS_ITS | Encounter Summary ---
:1945 Author Organization [facility] [place] [address] Care Team Providers Name Role Phone Lovely Vicente MD Primary Care Provider Reason for Visit Reason Comments Establish Care Atrial Fibrillation Congestive Heart Failure Cardiomyopathy Encounter Details Date Type Department Care Team Description 09/06/2019 [facility] Ischemic cardiomyopathy Osvaldo STRANGE [address] [place], [place] CARDIOLOGY DEPT. [address] [place] [address] [phone] Social History Tobacco Use Types Packs/Day Years [...] today For any questions, call my office: [phone] To access your health care information, go to the web at: [email or web address] (you will need to register) For educational materials: [email or web address] Karel TRAMMELL.[facility], Clinical Cardiac Electrophysiology, [facility], [facility] A Healthy Heart: After Your Visit [...] least 2 servings of fish a week. [place], mackerel, mcfadden, sardines, and chunk light tuna [...] irregular heartbeat. After you call 911, the dinking machine operator may tell you to chew [...] more? Visit our health information library at [email or web address]. You can also view health information on [employer], your personal patient account. Log in or sign up today. Enter F075 in the search box to learn more about A Healthy Heart: After Your Visit. ?? [id number] [employer] documented in this encounter Progress Notes Karel Mcelroy MD - 09/06/2019 2:20 PM EST Images from the original note were not included. Section of Cardiology/Cardiac Electrophysiology [facility] Clinical Cardiac Electrophysiology Consult Patient ID Don Fatima 1945 [id number] Don Fatima is referred to the EP clinic by Danette Maxwell APRN PhD Chief Complaint Dyspnea on exertion Ischemic cardiomyopathy History This is a 74 y.o. male following up/being seen in clinic for evaluation for ongoing anticoagulation. He has a Cncos1Hfek score of ~ 6-7. 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, can walk [...] on phone: None Gets together: None Attends islam service: None Active member of club or [...] EP clinic KAREL MCELROY MD Cardiac Electrophysiology [facility] T: [phone] F: [phone] minutes of this 40 minute encounter were spent in counselling, as described above Cc: MD Danette Cr APRN PhD Janett Espino DPM documented in this encounter Plan of Treatment Upcoming Encounters Date Type Specialty Care Team Description 05/28/2022 Appointment Cardiology Zulma Dolan MD [facility] [place], [place] [address] (Wo rk) 05/28/2022 Laboratory Appointment Lab 05/28/2022 Office Visit Cardiology Zulma Dolan MD [facility] [place] [address] Liz Poole PA [facility] [place] [address] 06/10/2022 Office Visit Dermatology Laura Scherer MD [facility] [address] [place], [place] [address] (Wo rk) documented as [...] 446 ms MUSE SYSTEM (Bezet) Calculated P [place] 37 degrees MUSE SYSTEM Calculated R Arm[place] -23 degrees MUSE SYSTEM Calculated T [place] 116 degrees MUSE SYSTEM INTERPRETATION Normal sinus rhythm MUSE SYSTEM Inferior infarct (cited on or before 25-JAN-2013) ST & T wave abnormality, consider anterolateral ischemia Abnormal ECG When compared with ECG of 19-AUG-2017 10:23, No significant change was found Confirmed by MD Cande, Michael ([id number]) on 09/08/2019 10:22:4 7 AM Specimen Anatomical [...] documented in this encounter Care Teams Business Administration Program Chair Relationship Specialty Start Date End Date Lovely Vicente MD PCP - General 04/16/[address] [place] [address] documented as of this encounter
--- OUTSIDE RECORDS SUMMARY | 2022-05-01 08:53 | XMS_ITS | Encounter Summary ---
:1945 Author Organization [facility] [place] [place] [address] Care Team Providers Name Role Phone Lovely Vicente MD Primary Care Provider Reason for Visit Auth/Cert Specialty Diagnoses / Procedures Referred By Contact Refer red To Contact Diagnoses NSTEMI Procedures emerg ipi Referral ID Status Reason Start Date Expiration Date Visits Requ ested Visits Authorized [id number] 1 1 Encounter Details Date Type Department Care Team Description 12/10/2021 Surgery Health Insurance Agent Asa Coulter MD CARDIAC CATHETERIZATION [facility] DR [place]idd[place] [address] [place] [address] [phone] (Wo rk) Social History Tobacco Use Types [...] Don Fatima Patient Age: 76 y.o. Language: Peruvian Race: White Ethnicity: Not nor Admit date: [...] Peter PA-C Kelly LaFlamme PA-C Cardiovascular Medicine [phone] Discharge Diagnoses (Hospital Problems) and Secondary Diagnoses [...] 3.75 guiding catheter and a 3.5 Fr Torres Martinez Eye [place] 20 Mhz using Manual pullback. Imaging was successful. Image quality was good. The ostial LCX showed moderate diffuse atherosclerotic plaque with scattered three quadrant calcification. Measurements were performed after pre-dilation. Post Intervention: The stent was well expanded and apposed. Intravascular Ultrasound was performed in the distal LM using a 7 Fr EBU 3.75 guiding catheter and a 3.5 Fr [facility] [place] 20 Mhz using Manual pullback. Imaging was successful. Image quality was good. The distal LM showed moderate diffuse atherosclerotic plaque. Post Intervention: The stent was well expanded and apposed. Indication for Intervention: Coronary intervention was indicated for primary therapy for an acute myocardial infarction. The priority for the procedure was Urgent. The [facility] indication for the procedure was NSTE-ACS. LVEF [...] and diet drinks did not cause his WI. This is what his thought was the [...] appointments: During 8am-5pm Wednesday through Wednesday call [phone] to speak with a nurse in the cardiology clinic All other times call [phone] and ask to speak to the medical assistant secretary tower air traffic control specialist. Return to work: One week Driving: No driving for 48 hours after catheterization. Follow up Appointments: PCP Lovely Vicente MD [phone] to see patient at the end of December for annual check up. Patient to see Dr. Lorenzana at 1120 am at December 19 for a post hospital check up. Manager Track Dr. De Oliveira to see you in [facility]. Left a message for office to set a date and time. Please call [phone] Nobles to see the patient for a same day cath in 2-3 weeks from now. Office to call with a date and time. For questions please call [phone] Home oxygen therapy: N/A Arrangements for VNA/home care: none Future Appointments and Orders Future Orders Complete By Expires Basic Metabolic Panel (non-fasting) [LAB15 Custom] 12/19/2021 (Approximate) 12/12/2022 Process Instructions: INCLUDES: Calcium, BUN, Creat, GFR, Glucose, Lytes Scheduling Instructions: Comments: Questions: Referral to Cardiac Rehab [[id number] Custom] As directed Process Instructions: If no [...] appointments: During 8am-5pm Wednesday through Wednesday call [phone] to speak with a nurse in the cardiology clinic All other times call [phone] and ask to speak to the medical assistant secretary tower air traffic control specialist. Return to work: One week Driving: No driving for 48 hours after catheterization. Follow up Appointments: PCP Lovely Vicente MD [phone] to see patient at the end of December for annual check up. Patient to see Dr. Lorenzana at 1120 am at December 19 for a post hospital check up. Manager Track Dr. De Oliveira to see you in [facility]. Left a message for office to set a date and time. Please call [phone] Nobles to see the patient for a same day cath in 2-3 weeks from now. Office to call with a date and time. For questions please call [phone] Home oxygen therapy: N/A Arrangements for VNA/home [...] Progress Note Patient Name: Don Fatima Service: CLINICAL PRACTICE CONSULTANT / PA Responsible Attending: Ifeanyi Truong [...] was given Lasix 80mg IV x1 in slab installer. Tolerated procedure well. Home today at 11 [...] with MD Janneth Neville PA 12/12/2021 Pager [phone] Associated attestation - Ifeanyi Truong MD - [...] [place] Endocrinology Diabetes Management Pager [phone] 20 minutes of this 35 minute visit [...] Progress Note Patient Name: Don Fatima Service: CLINICAL PRACTICE CONSULTANT / PA Responsible Attending: Iker Cuevas [...] + trop. 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 DM. MARIA VICTORIA.ICM. ??? ASHD [...] was given Lasix 80mg IV x1 in slab installer. Tolerated procedure well. Review of Systems: Review [...] Intake/Output Summary (Last 24 hours) at 12/11/2021 0908 Last data filed at 12/11/2021 0508 Gross [...] and answered his questions. Iker Cuevas MD [facility] Total time spent on review of records prior to visit, face to face time with patient during visit, documentation, and coordination of care with other clinicians: 25 minutes. . Iker Cuevas MD - 12/10/2021 12:30 PM EDT Images from the original note were not included. Inpatient Cardiology Progress Note Patient Name: Don Fatima Service: CLINICAL PRACTICE CONSULTANT / PA Responsible Attending: Iker Cuevas MD Reason for continued hospitalization: NSTEMI- s/p R/LHC- PCW 27, occluded SVGs s/p PCI to ostial LCX ADHF and hypoxia- IV diuresis Active Problems: Active Hospital Problems Diagnosis ??? Admitted with 2 days of sob, hypoxemia, and + trop. 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 DM. MARIA VICTORIA.ICM. ??? ASHD [...] was given Lasix 80mg IV x1 in slab installer. Tolerated procedure well. Review of Systems: Review [...] TROPONINT 1.13* 0.92* 0.89* Pertinent Radiographic/Diagnostic Results: R/[facility] 12/10/21 Hemodynamics: Right Heart Pressures Resting: Syst [...] Discussed with MD Migdalia Peter PA-C Pager #[phone] 12/10/2021 Cardiology Attending Note I have seen [...] updated and given pictures. Iker Cuevas MD [facility] Total time spent on review of records prior to visit, face to face time with patient during visit, documentation, and coordination of care with other clinicians: 35 minutes. Iker Cuevas MD - 12/09/2021 7:28 AM EDT Images from the original note were not included. Inpatient Cardiology Progress Note Patient Name: Don Fatima Service: CLINICAL PRACTICE CONSULTANT / PA Responsible Attending: Iker Cuevas MD Reason for continued hospitalization: NSTEMI- awaiting R/LHC ADHF and hypoxia- IV diuresis, R/LHC Active Problems: Active Hospital Problems Diagnosis ??? Admitted with 2 days of sob, hypoxemia, and + trop. 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 DM. MARIA VICTORIA.ICM. ??? ASHD [...] Discussed with MD Migdalia Peter PA-C Pager #[phone] 12/09/2021 Cardiology Attending Note I have seen [...] < 70 -CPAP tonight Iker Taverass MD [facility] Total time spent on review of [...] + trop. 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 DM. MARIA VICTORIA.ICM. ??? ASHD [...] at [facility] MAIN OR ??? PRO AMPUTATION FOOT, TRANSMETATARSAL Right 08/09/2017 AMPUTATION, TRANSMETATARSAL (WRVU 12.71) performed by Yonathan Smith MD at [facility]ALTH SYSTEM MAIN OR ??? [...] MD at HEALTH SYSTEM ENDOSCOPY ??? PRO DRESSING CHANGE UNDER ANESTHESIA Right 08/11/2017 (MSURG) DRESSING CHANGE (FOR OTHER THAN IVAN) UNDER ANES. (WRVU 0.86) performed by Lamar Smith MD at [facility] MAIN OR ??? PRO ENDOSCOPY W/VIDEO-ASST VEIN HARVEST, CABG Right 07/07/2017 ENDOSCOPIC HARVEST VEIN(S) FOR CABG (WRVU 0.31) performed by Yuan Retana MD at [facility] MAIN OR ??? PRO THYROIDECTOMY 03/28/2013 THYROIDECTOMY, TOTAL OR COMPLETE performed by Manny Mcknight MD at [facility] MAIN OR Significant Family History: [...] Monitor for ADRs. Trend troponins. Admission EKG. [facility] 12/09; consented. TTE. Telemetry monitoring, daily weights, [...] code #Diet-carb control; n.p.o. after midnight for [facility] #DVT prophy- heparin infusion #GI prophy- PPI Discussed with MD Morgan Peter PA-C APP2 pager [phone] 12/08/2021 Cardiology Attending Note I have seen [...] is type 1 due to graft or [place] coronary stenosis vs acute injury from CHF. 3. PAF: currrently in NSR. Have replaced warfarin with heparin 4. PAD: stable 5. DM: stable 6. CKD: will monitor and minimize contrast. Pt very appreciative of Dr. Yuan Retana's care in 2018. Will let him know patient is here. Iker Cuevas MD [facility] documented in this encounter Miscellaneous Notes [...] Type: *No Product type* / Secondary Insurance: [employer] [place] Prescription Coverage: Yes This plan was [...] cath without complications. Migdalia Parker PA-C Pager #[phone] 12/10/2021 Initial Assessments - Nick Georges RN [...] COVID test: Lab Results Component Value Date [id number] Not Detected 12/08/2021 Past medical History: Past [...] [facility] [place] must abide [place] law. The hierarchy [...] - standard, cane - straight Home Address: [address] [place] [address] [place] [address] Social & Family Supports: All names listed below confirmed with patient as current and correct Extended Emergency Contact Information Primary Emergency Contact: Kisha Fatima Address: [address] [place] [address] [place] [address] [facility] Mobile Relation: Spouse Secondary Emergency Contact: Elba Swenson Address: [place], [place] [address] [place] [address] Mobile Relation: Child Current Care Provided by: [...] *No Product type* / Secondary Insurance: [facility] Prescription Coverage: Yes Preferred Pharmacy: [facility] [address] [address] - [place], [place] - [address] [address] [place] Status: Patient is a : unable to assess Primary Care Provider: Lovely Vicente MD [phone] Patient/Caregiver Goals of Treatment: Get out of here Potential Needs for Transition of Care: none Agency Referrals: none patient has used [facility] in the past Transportation: no concerns Transportation Anticipated: family or friend will provide Concerns to be Addressed: patient refuses services, discharge planning Assessment: Patient is admitted to [facility] Service pager [phone] for 76 y.o.??male??with h/o??CAD s/p 3vCABG (THOMPSON-LAD, [...] status on current unit. Nick Georges RN spike driver, Office of Care Management Pager: [phone] Brief Op Note - Vitaliy Nobles MD - 12/10/2021 8:31 AM EDT Images from the original note were not included. Former[facility] [place] [address] CORONARY ANGIOGRAM AND PERCUTANEOUS CORONARY INTERVENTION REPORT Patient: Don Fatima : 1945 MR number: [id number] Date of Service: 12/10/2021 Daycare Teacher: Vitaliy Nobles MD Fellow: [place] [...] of skilled nursing diabetes care. Diabetes History: Don Fatima has had diabetes for 10 years. He has been on insulin for the last several years andis managed by his PCP. Lives in [place], [place] with his . States that he [...] 5 gm carb ratio for each meal) long-term diabetes care: Medications - Outpatient treatment regimen recommendations pending based on the hospital course. Monitoring - continue BG tid ac & hs Diet - low fat/low carb diet Exercise - weight-bearing exercise 30 min/day, as tolerated Thank you for allowing us to provide care for your patient Desirae Jett APRN Endocrinology Pager [phone] 70 minutes of this 80 minute visit [...] + trop. 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 DM. MARIA VICTORIA.ICM. ??? ASHD [...] for further details. STEPHANIE Rebolledo 12/08/2021 Pager [phone] documented in this encounter Plan of Treatment Upcoming Encounters Date Type Specialty Care Team Description 05/28/2022 Appointment Cardiology Zulma Dolan MD [facility] [place], [place] [address] (Wo lissa) 05/28/2022 Laboratory Appointment Lab 05/28/2022 Office Visit Cardiology Zulma Dolan MD [facility] [place] [address] Liz Poole PA [facility] [place] [address] 06/10/2022 Office Visit Dermatology Laura Scherer MD [facility] [address] [facility]JA [facility] [place], [place] [address] (Wo rk) Scheduled Referrals Name [...] Glucose 215 (H) 65 - 199 [facility] mg/dL [facility] Comment: Supplemental ranges: <140 mg/dL before meals <180 mg/dL all other times of the day Specimen Anatomical Collection Method Collection Time Receive d Time (Source) Location / / Volume Laterality Blood 12/12/2021 7:42 AM 7:42 EDT AM EDT Ifeanyi Truong MD POINT OF CARE TEST ORDERABLE S Performing Organization Address City/State/ZIP [place] [address] (ABNORMAL) Differential, Automated (12/12/2021 4:51 AM EDT) athologist Signature Neutrophils % 75.4 % [facility] Neutr Abs (ANC) 5.95 1.70 - [facility] [address] [facility] x10(3)/[facility] LABORATORY Lymphocytes % 12.2 % [facility] Lymphocytes Abs 1.0 0.9 - 3.2 [facility] x10(3)/[facility] LABORATORY Monocytes % 9.5 % [facility] Monocyte Abs 0.8 0.3 - 0.9 [facility] x10(3)/[facility] LABORATORY Eosinophils % 1.8 % [facility] Eosinophils Abs 0.1 0.0 - 0.4 [facility] x10(3)/[facility] LABORATORY Basophils % 0.5 % [facility] Basophils Abs 0.0 0.0 - 0.1 [facility] x10(3)/[facility] [...] Address City/State/ZIP Code Phon e Number [address] (ABNORMAL) Hemogram (12/12/2021 4:51 AM EDT) Analysis Performed At Patho logist Time Signature WBC 7.9 4.0 - 9.5 [facility] x[facility](3[facility] LABORATORY RBC 4.19 (L) 4.58 - [place] [address] [facility] x10(6)/[facility] LABORATORY Hemoglobin 12.1 (L) 13.7 - [place] 16.5 g/dL [facility] Hematocrit 36.7 (L) 40.5 - [facility] 48.5 % [facility] MCV 87.6 82.9 - [facility] 93.1 [facility] LABORATORY MCH 28.9 27.5 - [place] 32.1 pg [facility] MCHC 33.0 32.0 - [place] 35.7 g/dL [facility] Platelets 231 145 - 357 [facility] x10(3)/[facility] LABORATORY RDWSD 47.2 (H) 36.0 - [facility] RYAN 45.0 [facility] LABORATORY RDWCV 14.6 (H) 11.4 - [facility] RYAN 13.8 % [facility] MPV 9.5 7.6 - 12.9 [facility] R[place] [facility] LABORATORY nRBC % Auto 0.0 % [facility] nRBC Abs Auto 0.000 0.000 - [place] [address] [facility] x10(3)/[facility] LABORATORY Specimen Anatomical Collection Method Collection Time Receive d Time (Source) Location / / Volume Laterality Blood 12/12/2021 4:51 AM 2 5:06 EDT AM EDT Resulting Agency Comment Spec In Lab Bijan Sun MD HEMATOLOGY ORDERABLES Performing Organization Address City/[facility]/[place] [address] (ABNORMAL) Prothrombin Time (12/12/2021 [...] Organization Address City/State/[place] [address] (ABNORMAL) BMP w/fasting Glucose (12/12/2021 4:51 AM EDT) athologist Signature Glucose 152 (H) 65 - 99 [facility] Fasting mg/dL [facility] Comment: ?Fasting* Glucose Interpretive [...] Organization Address City/State/ZIP [place] [address] Magnesium (12/12/2021 4:51 AM EDT) athologist Signature Magnesium 1.02 0.69 - 1.07 [place] mmol/L [facility] Specimen Anatomical Collection Method Collection Time Receive d Time (Source) Location / / Volume Laterality Blood 12/12/2021 4:51 AM 2 5:06 EDT AM EDT Resulting Agency Comment Spec In Lab Iker Cuevas MD CHEMISTRY ORDERABLES Performing Organization Address City/[facility]/ZIP Code Phon e Number [address] POCT Glucose (12/12/2021 3:43 AM EDT) athologist Signature POC Glucose 138 65 - 199 [place] mg/dL [facility] [...] Address City/State/ZIP Code Phon e Number [address] POCT Glucose (12/11/2021 11:44 PM EDT) athologist Signature POC Glucose 124 65 - 199 [place] mg/dL [facility] [...] Address City/State/ZIP Code Phon e Number [address] (ABNORMAL) POCT Glucose (12/11/2021 [...] Organization Address City/State/[place] [address] (ABNORMAL) POCT Glucose (12/11/2021 [...] Organization Address City/State/[place] [address] (ABNORMAL) POCT Glucose (12/11/2021 4:00 PM EDT) P athologist Signature POC Glucose 383 (H) 65 - 199 [facility] R[place] mg/dL [facility] Comment: Supplemental ranges: <140 mg/dL before meals <180 mg/dL all other times of the day Specimen Anatomical Collection Method Collection Time Receive d Time (Source) Location / / Volume Laterality Blood 12/11/2021 4:00 PM 2 4:00 EDT PM EDT Iker Cuevas MD POINT OF CARE TEST ORDERABLE S Performing Organization Address City/State/[place] [address] (ABNORMAL) POCT Glucose (12/11/2021 [...] Address City/State/ZIP [place] [address] COVID-19 PCR (12/11/2021 10:13 [...] diagnosis of COVID-19 is performed using the [employer]ON[employer] S-CoV-2 Assay as authorized by the FDA Emergency Use Authorization (EUA). This EUA assay is intended for In-vitro Diagnostic (IVD) use with respiratory sp ecimens such as nasopharyngeal swabs collected from individuals during the ac stebbins phase of infection. This assay is performed based on the instructions for use provided by [employer] and additional guidance provided by CDC [...] infected. As required or requested by [facility], positive specimens may be sent [...] clinical management guidance information are available at [facility] CDC Coronavirus Disease 2019 (COVID-19) webpage under Information fo r Healthcare Professionals (https://www.cdc.gov/coronavirus/2019-nc ov/hcp/index.html) Additional information about this and ot her EUA tests can be found in provider and patient fact sheets at the following FDA website: https://www.fda.gov/medical-devices/bcglyfqlfpr-zwrdwet-9504-jblqa-43-njqlpdajf- dfg-keaflgtwnaijlw-uefesij-devices/rumrn-uccuospvfbk-llkd SARS-Cov-2 RNA Source CLINICAL PRACTICE CONSULTANT Swab [facility] Specimen (Source) Anatomical Collection Method Collection Time Re ceived Time Location / / Volume Laterality Nasopharyngeal Swab 12/11/2021 10:13 11/23 AM EDT 11:16 AM EDT Comment: Symptoms->Surveillance Resulting Agency Comment Spec In Lab Iker Cuevas MD MICROBIOLOGY - GENERAL ORDER [place] Performing Organization Address City/State/ZIP [place] [address] POCT Glucose (12/11/2021 7:34 AM EDT) P athologist Signature POC Glucose 198 65 - 199 [facility] mg/dL [facility] Comment: Supplemental ranges: <140 mg/dL before meals <180 mg/dL all other times of the day Specimen Anatomical Collection Method Collection Time Receive d Time (Source) Location / / Volume Laterality Blood 12/11/2021 7:34 AM 2 7:34 EDT AM EDT Iker Cuevas MD POINT OF CARE TEST ORDERABLE S Performing Organization Address City/State/[place] [address] (ABNORMAL) POCT Glucose (12/11/2021 5:07 AM EDT) P athologist Signature POC Glucose 208 (H) 65 - 199 [facility] mg/dL [facility] Comment: Supplemental ranges: <140 mg/dL before meals <180 mg/dL all other times of the day Specimen Anatomical Collection Method Collection Time Receive d Time (Source) Location / / Volume Laterality Blood 12/11/2021 5:07 AM 2 5:07 EDT AM EDT Iker Cuevas MD POINT OF CARE TEST ORDERABLE S Performing Organization Address City/State/[place] [address] (ABNORMAL) Differential, Automated (12/11/2021 4:28 AM EDT) Patholo gist Method Time Signature Neutrophils % 79.6 % [facility] Neutr Abs (ANC) 7.01 (H) 1.70 - [facility] 6.[address] [facility] x10(3)/[facility] LABORATORY Lymphocytes % 9.1 % [facility] Lymphocytes Abs 0.8 (L) 0.9 - 3.2 [facility] x10(3)/[facility] LABORATORY Monocytes % 9.2 % [facility] Monocyte Abs 0.8 0.3 - 0.9 [facility] x10(3)/[facility] LABORATORY Eosinophils % 1.3 % [facility] Eosinophils Abs 0.1 0.0 - 0.4 [facility] x10(3)/[facility] LABORATORY Basophils % 0.5 % [facility] Basophils Abs 0.0 0.0 - 0.1 [facility] x10(3)/[facility] LABORATORY Immature Gran % 0.30 % [facility] [...] 0.04 x10(3)/[facility] MAR Y [facility] LABORATORY Specimen Anatomical Collection Method Collection Time Receive d Time (Source) Location / / Volume Laterality Blood 12/11/2021 4:28 AM 4:37 EDT AM EDT Resulting Agency Comment Spec In Lab Bijan Sun MD HEMATOLOGY ORDERABLES Performing Organization Address City/State/ZIP Code Phon e Number [place] [id number] (ABNORMAL) Hemogram (12/11/2021 4:28 AM EDT) Analysis Performed At Patho logist Time Signature WBC 8.8 4.0 - 9.5 [facility] x10(3)/[facility] LABORATORY RBC 4.15 (L) 4.58 - [place] [address] [facility] x10(6)/[facility] LABORATORY Hemoglobin 11.9 (L) 13.7 - [facility] g/dL [facility] Hematocrit 36.9 (L) 40.5 - [facility] RYAN 48.5 % [facility] MCV 88.9 82.9 - [facility] RYAN 93.1 [facility] LABORATORY MCH 28.7 27.5 - [place] 32.1 pg [facility] MCHC 32.2 32.0 - [facility] 35.[facility] g/dL [facility] Platelets 211 145 - 357 [facility] x10(3)/[facility] LABORATORY RDWSD 48.3 (H) 36.0 - [facility] RYAN 45.0 [facility] LABORATORY RDWCV 14.8 (H) 11.4 - [facility] RYAN 13.8 % [facility] MPV 9.6 7.6 - 12.9 [facility] LABORATORY nRBC % Auto 0.0 % [facility] nRBC Abs Auto 0.000 0.000 - [facility] [address] [facility] x10(3)/[facility] LABORATORY Specimen Anatomical Collection Method Collection Time Receive d Time (Source) Location / / Volume Laterality Blood 12/11/2021 4:28 AM 2 4:37 EDT AM EDT Resulting Agency Comment Spec In Lab Bijan Sun MD HEMATOLOGY ORDERABLES Performing Organization Address City/[facility]/ZIP [facility] [place] [address] (ABNORMAL) Prothrombin Time (12/11/2021 [...] City/[facility]/ZIP Code Phon e Number [place] [place] [address] (ABNORMAL) BMP w/fasting Glucose (12/11/2021 4:28 AM EDT) P athologist Signature Glucose 207 (H) 65 - 99 [facility] Fasting mg/dL [facility] LABORATORY Comment: ?Fasting* Glucose Interpretive [...] City/[facility]/[place] [address] Magnesium (12/11/2021 4:28 AM EDT) athologist Signature Magnesium 1.04 0.69 - 1.07 [facility] mmol/L [facility] Specimen Anatomical Collection Method Collection Time Receive d Time (Source) Location / / Volume Laterality Blood 12/11/2021 4:28 AM 2 4:37 EDT AM EDT Resulting Agency Comment Spec In Lab Iker Cuevas MD CHEMISTRY ORDERABLES Performing Organization Address City/[facility]/ZIP Code Phon e Number [address] POCT Glucose (12/11/2021 3:58 AM EDT) athologist Signature POC Glucose 189 65 - 199 [place] mg/dL [facility] [...] City/[facility]/[place] [address] (ABNORMAL) POCT Glucose (12/10/2021 [...] City/[facility]/[place] [address] (ABNORMAL) POCT Glucose (12/10/2021 7:54 PM EDT) athologist Signature POC Glucose 225 (H) 65 - 199 [facility] mg/dL [facility] LABOR[facility]ORY [...] City/[facility]/[place] [address] Potassium (12/10/2021 7:46 PM EDT) athologist [facility] Potassium 4.2 3.5 - 5.0 [facility] mmol/L [facility] Comment: Please note: ??Patients [...] ORDERABLES Performing Organization Address City/[facility]/ZIP [facility] [place] [address] (ABNORMAL) Basic Metabolic Panel (non-fasting) (12/10/2021 6:12 PM EDT) athologist Signature Glucose Lvl 246 (H) 65 - 199 [facility] mg/dL [facility] Comment: Diabetes: [...] Address City/State/ZIP Code Phon e Number [address] POCT Glucose (12/10/2021 4:59 PM EDT) P athologist Signature POC Glucose 158 65 - 199 [facility] mg/dL [facility] Comment: Supplemental ranges: <140 mg/dL before meals <180 mg/dL all other times of the day Specimen Anatomical Collection Method Collection Time Receive d Time (Source) Location / / Volume Laterality Blood 12/10/2021 4:59 PM 2 4:59 EDT PM EDT Iker Cuevas MD POINT OF CARE TEST ORDERABLE S Performing Organization Address City/State/[place] [address] (ABNORMAL) POCT Glucose (12/10/2021 12:43 PM EDT) P athologist Signature POC Glucose 241 (H) 65 - 199 [facility] mg/dL [facility] Comment: Supplemental ranges: <140 mg/dL before meals <180 mg/dL all other times of the day Specimen Anatomical Collection Method Collection Time Receive d Time (Source) Location / / Volume Laterality Blood 12/10/2021 12:43 12/10/2021 PM EDT 12:43 PM EDT Iker Cuevas MD POINT OF CARE TEST ORDERABLE S Performing Organization Address City/State/[place] [address] EKG 12 Lead (12/10/2021 11:17 AM EDT) Component Value Ref Range Test Analysis Performed Pathologis t Method Time At Signature Ventricular rate 62 BPM MUSE SYSTEM Atrial Rate 62 BPM MUSE SYSTEM P-R Interval 142 ms MUSE SYSTEM QRS Duration 100 ms MUSE SYSTEM Q-T Interval 434 ms MUSE SYSTEM QTC Calculated 440 ms MUSE SYSTEM (Bezet) Calculated P Ronceverte 34 degrees MUSE SYSTEM Calculated R Ronceverte -39 degrees MUSE SYSTEM Calculated T Ronceverte 92 degrees MUSE SYSTEM INTERPRETATION Normal sinus rhythm MUSE SYSTEM Left axis deviation Minimal voltage criteria for LVH, may be normal variant ( [place] product ) Cannot rule out Inferior infarct [...] Laterality Volume Narrative 12/10/2021 12:04 PM EDT ?[facility] ? Cardiac Cathete rization/Intervention Report ? Patient Name: Don FatimaMadiha ? Procedure Date: 12/10/2021 ? A #: [id number] ? Primary Physician: Nobles, Vitaliy P ? Case #: [id number] ? File Name: [id number] ? Catheterization Order Number: [id number] ? [facility] ? Final Report [place], [place] ? Patient Name: ? Don E. Stewa rt ? ID#: ?[id number] ? : ?1945 ? Procedure Date: ? [...] was Urgent. The indication for ?the slab installer visit is ACS great er than 24 [...] ?3.75 guiding catheter and a 3.5 Fr [facility] [place] 20 Mhz using Manual ?pullback. ??Imaging was [...] ?3.75 guiding catheter and a 3.5 Fr [facility] 20 Mhz using Manual ?pullback. ??Imaging was [...] Procedure Note Vitaliy Nobles MD - 01/14/2022 [facility] Cardiac Catheterization/Intervention Re port Patient Name: Don Fatima Procedure Date: 12/10/2021 A #: [id number] Primary Physician: Vitaliy Nobles Case #: [id number] File Name: [id number] Catheterization Order Number: [id number] [facility] Health Insurance Agent [facility] Final Report [place], [place] Patient Name: Don Fatima ID#: [...] was Urgent. The indication for the slab installer visit is ACS greater than 24 hrs [...] and a 3.5 Fr [facility] e [facility] [place] 20 Mhz using Manual pullback. Imaging was [...] and a 3.5 Fr [facility] [place] 20 Mhz using Manual pullback. Imaging was successful. Image quality was good. The distal LM showed moderate diffuse atherosclero tic plaque. Post Intervention: The stent was well e xpanded and apposed. Indication for Intervention: Coronary intervention was indicated for primary therapy for an acute myocardial infarction. The priority for the procedure was Urgent. The NCDR indication for the procedure was N MRAKIE-ACS. LVEF within one week was 35%. Syntax [...] require modification of this regimen. Consult [facility] Interventional Cardiology for [...] POC Glucose 262 (H) 65 - 199 [facility] mg/dL [facility] Comment: Supplemental ranges: <140 mg/dL before meals <180 mg/dL all other times of the day Specimen Anatomical Collection Method Collection Time Receive d Time (Source) Location / / Volume Laterality Blood 12/10/2021 10:30 12/10/2021 AM EDT 10:30 AM EDT Iker Cuevas MD POINT OF CARE TEST ORDERABLE S Performing Organization Address City/State/[place] [address] (ABNORMAL) POCT Glucose (12/10/2021 [...] City/[facility]/[place] [address] (ABNORMAL) POCT Glucose (12/10/2021 [...] Organization Address City/State/[place] [address] (ABNORMAL) Point of Care Blood Gas Historical (12/10/2021 9:04 AM EDT) [facility] Method Time Signature POC pH 7.40 7.35 - [place] 7.45 [facility]OR[facility] POC PCO2 40 35 - 45 [facility] LABORATORY POC PO2 63 (L) 85 - 104 [facility] LABORATORY POC Base Excess 0.0 -3.0 - 3.0 [facility] K mmol/L [facility] POC HCO3 24.8 20.0 - [facility] 26.[address] [facility] Sodium 143 135 - 145 [facility] mmol/L [facility]OR[facility] POC Potassium 3.7 3.5 - 5.0 [facility] mmol/L [facility] POC Ionized Ca 1.07 (L) 1.15 - [facility] 1.33 [facility] POC Hematocrit 30.0 (L) 40.0 - [facility] 51.0 % [facility] POC Calc Hgb 10.2 (L) 13.7 - [facility] 17.5 g/dL [facility] Comment: The calculation of hemoglobin f rom hematocrit assumes a normal MCHC. POC Bgas Loc CC LAB [facility] LABORATORY Specimen Anatomical Collection Method Collection Time Receive d Time (Source) Location / / Volume Laterality Blood 12/10/2021 9:04 AM 2 EDT 12:00 PM EDT Ifeanyi Truong MD CHEMISTRY ORDERABLES Performing Organization Address City/State/[place] [address] (ABNORMAL) POCT Glucose (12/10/2021 7:19 AM EDT) P athologist Signature POC Glucose 274 (H) 65 - 199 [facility] mg/dL [facility] Comment: Supplemental ranges: <140 mg/dL before meals <180 mg/dL all other times of the day Specimen Anatomical Collection Method Collection Time Receive d Time (Source) Location / / Volume Laterality Blood 12/10/2021 7:19 AM 2 7:19 EDT AM EDT Iker Cuevas MD POINT OF CARE TEST ORDERABLE S Performing Organization Address City/State/[place] [address] Heparin (unfractionated) Level (12/10/2021 4:25 AM EDT) P athologist Signature Heparin UFH 0.69 IU/mL [facility] [...] City/State/ZIP Code Phon e Number [place] [id number] (ABNORMAL) Differential, Automated (12/10/2021 4:25 AM EDT) Patholo gist Method Time Signature Neutrophils % 79.8 % [facility] LABORATORY Neutr Abs (ANC) 7.47 (H) 1.70 - [facility] 6.[address] [facility] x10(3)/[facility] L LABORATORY Lymphocytes % 10.6 % [facility] LABORATORY Lymphocytes Abs 1.0 0.9 - 3.2 [facility] x10(3)/[facility] LABORATORY Monocytes % 8.4 % [facility] LABORATORY Monocyte Abs 0.8 0.3 - 0.9 [facility] x10(3)/[facility] LABORATORY Eosinophils % 0.6 % [facility] LABORATORY Eosinophils Abs 0.1 0.0 - 0.4 [facility] x10(3)/[facility] LABORATORY Basophils % 0.2 % [facility] LABORATORY Basophils Abs 0.0 0.0 - 0.1 [facility] x10(3)/[facility] LABORATORY Immature Gran % 0.40 % [facility] [...] 0.04 x10(3)/[facility] MAR Y [facility] LABORATORY Specimen Anatomical Collection Method Collection Time Receive d Time (Source) Location / / Volume Laterality Blood 12/10/2021 4:25 AM 4:34 EDT AM EDT Resulting Agency Comment Spec In Lab Morgan BROWN HEMATOLOGY ORDERABLES Performing Organization Address City/State/ZIP [place] [address] (ABNORMAL) Hemogram (12/10/2021 4:25 AM EDT) Analysis Performed At Patho logist Time Signature WBC 9.4 4.0 - 9.5 [facility] x10(3)/[facility] LABORATORY RBC 3.81 (L) 4.58 - [facility] 5.[address] [facility] x10(6)/[facility] LABORATORY Hemoglobin 11.1 (L) 13.7 - [facility] 16.5 g/dL [facility] Hematocrit 34.0 (L) 40.5 - [facility] 48.5 % [facility] MCV 89.2 82.9 - [facility] 93.1 [facility] LABORATORY MCH 29.1 27.5 - [facility] 32.1 pg [facility] LABORATORY MCHC 32.6 32.0 - [facility] 35.7 g/dL [facility] Platelets 183 145 - 357 [facility] x10(3)/[facility] LABORATORY RDWSD 49.9 (H) 36.0 - [facility] RYAN 45.0 [facility] LABORATORY RDWCV 15.2 (H) 11.4 - [facility] 13.8 % [facility] LABORATORY MPV 9.8 7.6 - 12.9 [facility] LABORATORY nRBC % Auto 0.0 % [facility] LABORATORY nRBC Abs Auto 0.000 0.000 - [place] [address] [facility] x10(3)/[facility] LABORATORY Specimen Anatomical Collection Method Collection Time Receive d Time (Source) Location / / Volume Laterality Blood 12/10/2021 4:25 AM 2 4:34 EDT AM EDT Resulting Agency Comment Spec In Lab Morgan BROWN HEMATOLOGY ORDERABLES Performing Organization Address City/[facility]/ZIP Code Phon e Number [address] (ABNORMAL) Prothrombin Time (12/10/2021 [...] City/[facility]/[place] [address] (ABNORMAL) BMP w/fasting Glucose (12/10/2021 4:25 AM EDT) P athologist Signature Glucose 210 (H) 65 - 99 [facility] Fasting mg/dL [facility]OR[facility] Comment: ?Fasting* Glucose Interpretive [...] Organization Address City/State/[place] [address] Magnesium (12/10/2021 4:25 AM EDT) athologist Signature Magnesium 0.95 0.69 - 1.07 [place] mmol/L [facility] LABORATORY Specimen Anatomical Collection Method Collection Time Receive d Time (Source) Location / / Volume Laterality Blood 12/10/2021 4:25 AM 2 4:34 EDT AM EDT Resulting Agency Comment Spec In Lab Iker Cuevas MD CHEMISTRY ORDERABLES Performing Organization Address City/[facility]/[place] [address] POCT Glucose (12/10/2021 1:58 AM EDT) athologist Signature POC Glucose 164 65 - 199 [place] mg/dL [facility]ORY Comment: Supplemental ranges: <140 mg/dL before meals <180 mg/dL all other times of the day Specimen Anatomical Collection Method Collection Time Receive d Time (Source) Location / / Volume Laterality Blood 12/10/2021 1:58 AM 2 1:58 EDT AM EDT kIer Cuevas MD POINT OF CARE TEST ORDERABLE S Performing Organization Address City/[facility]/ZIP Code Phon e Number [address] (ABNORMAL) POCT Glucose (12/09/2021 [...] City/[facility]/[place] [address] Heparin (unfractionated) Level (12/09/2021 7:30 PM EDT) athologist Signature Heparin UFH 0.48 IU/mL [facility] LABORATORY Comment: Heparin [...] Organization Address City/State/ZIP [place] [address] (ABNORMAL) Basic Metabolic Panel (non-fasting) (12/09/2021 7:30 PM EDT) athologist Signature Glucose Lvl 372 (H) 65 - 199 [facility] mg/dL [facility] Comment: Diabetes: [...] Organization Address City/State/ZIP [place] [address] (ABNORMAL) POCT Glucose (12/09/2021 [...] Organization Address City/State/[place] [address] (ABNORMAL) POCT Glucose (12/09/2021 6:32 PM EDT) athologist Signature POC Glucose 356 (H) 65 - 199 [facility] mg/dL [facility] LABORATORY [...] City/[facility]/[place] [address] (ABNORMAL) POCT Glucose (12/09/2021 4:19 PM EDT) athologist Signature POC Glucose 347 (H) 65 - 199 [facility] mg/dL [facility] Comment: Supplemental ranges: <140 mg/dL before meals <180 mg/dL all other times of the day Specimen Anatomical Collection Method Collection Time Receive d Time (Source) Location / / Volume Laterality Blood 12/09/2021 4:19 PM 2 4:19 EDT PM EDT Iker Cuevas MD POINT OF CARE TEST ORDERABLE S Performing Organization Address City/State/[place] [address] Heparin (unfractionated) Level (12/09/2021 1:29 PM EDT) athologist Signature Heparin UFH 0.42 IU/mL [facility] LABORATORY Comment: Heparin [...] Organization Address City/State/[place] [address] (ABNORMAL) POCT Glucose (12/09/2021 12:02 PM EDT) athologist Signature POC Glucose 235 (H) 65 - 199 [facility] mg/dL [facility] Comment: Supplemental ranges: <140 mg/dL before meals <180 mg/dL all other times of the day Specimen Anatomical Collection Method Collection Time Receive d Time (Source) Location / / Volume Laterality Blood 12/09/2021 12:02 12/09/2021 PM EDT 12:02 PM EDT Iker Cuevas MD POINT OF CARE TEST ORDERABLE S Performing Organization Address City/State/[place] [address] (ABNORMAL) POCT Glucose (12/09/2021 [...] City/[facility]/ZIP [place] [address] EKG 12 Lead (12/09/2021 7:57 AM EDT) Component Value Ref Range Test Analysis Performed Pathologis t Method Time At Signature Ventricular rate 101 BPM MUSE SYSTEM Atrial Rate 101 BPM MUSE SYSTEM P-R Interval 150 ms MUSE SYSTEM QRS Duration 112 ms MUSE SYSTEM Q-T Interval 364 ms MUSE SYSTEM QTC Calculated 471 ms MUSE SYSTEM (Bezet) Calculated P Ronceverte 59 degrees MUSE SYSTEM Calculated R Ronceverte -42 degrees MUSE SYSTEM Calculated T Ronceverte 102 degrees MUSE SYSTEM INTERPRETATION Sinus tachycardia Occasional Premature ventricular com plexes MUSE SYSTEM Left axis deviation 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) Abnormal ECG When compared with ECG of 08-DEC-2021 16:40, Premature ventricular complexes are now Present Confirmed by MD Fernandez Danette ([id number]) on 12/10/2021 4:55:06 PM Specimen Anatomical Collection Method Collection Time Receive d Time (Source) Location / / Volume Laterality 12/09/2021 7:57 AM 2 4:55 EDT PM EDT Iker Cuevas MD ECG ORDERABLES Performing Organization Address City/State/ZIP Code Phon e Number MUSE SYSTEM (ABNORMAL) POCT Glucose (12/09/2021 7:28 AM EDT) P athologist Signature POC Glucose 263 (H) 65 - 199 [facility] mg/dL [facility] LABORATORY [...] City/State/ZIP Code Phon e Number [place] [id number] Drive (ABNORMAL) Hemoglobin A1c (12/09/2021 [...] Mellitus, Diabetes Care 2013; 36: Suppl. 1, D57-11 Est Avg Gluc See note mg/dL GRACE [...] into estimated average glucose values. ??Diabetes Care 2008:31(8):1654-4899. Specimen Anatomical Collection Method Collection Time Receive d Time (Source) Location / / Volume Laterality Blood Venous Draw / 12/09/2021 6:18 AM 12/10/19 22 Unknown EDT 12:24 PM EDT Resulting Agency Comment Spec In Lab Migdalia BROWN CHEMISTRY ORDERABLES Performing Organization Address [facility] [place] [address] (ABNORMAL) Prothrombin Time (12/09/2021 [...] Migdalia BROWN HEMATOLOGY ORDERABLES Performing Organization Address [facility] [place] [address] Heparin (unfractionated) Level (12/09/2021 6:18 AM EDT) P athologist Signature Heparin UFH 0.24 IU/mL [facility] LABORATORY Comment: Heparin [...] Organization Address City/State/ZIP [place] [address] (ABNORMAL) Differential, Automated (12/09/2021 6:18 AM EDT) [facility] Method Time Signature Neutrophils % 91.5 % [facility] LABORATORY Neutr Abs (ANC) 15.78 (H) 1.70 - [facility] 6.[address] [facility] x10(3)/[facility] LABORATORY Lymphocytes % 2.9 % [facility] LABORATORY Lymphocytes Abs 0.5 (L) 0.9 - 3.2 [facility] x10(3)/[facility] LABORATORY Monocytes % 4.9 % [facility] LABORATORY Monocyte Abs 0.8 0.3 - 0.9 [facility] x10(3)/[facility] LABORATORY Eosinophils % 0.0 % [facility] LABORATORY Eosinophils Abs 0.0 0.0 - 0.4 [facility] x10(3)/[facility] LABORATORY Basophils % 0.2 % [facility] LABORATORY Basophils Abs 0.0 0.0 - 0.1 [facility] x10(3)/[facility] LABORATORY Immature Gran % 0.50 % [facility] [...] Abs 0.09 (H) 0.00 - 0.04 x10(3)/[facility] LABORATORY Specimen Anatomical Collection Method Collection Time Receive d Time (Source) Location / / Volume Laterality Blood 12/09/2021 6:18 AM 6:33 EDT AM EDT Resulting Agency Comment Spec In Lab Morgan BROWN HEMATOLOGY ORDERABLES Performing Organization Address City/State/ZIP [place] [address] (ABNORMAL) Hemogram (12/09/2021 6:18 AM EDT) Analysis Performed At Patho logist Time Signature WBC 17.2 (H) 4.0 - 9.5 [facility] x10(3)/[facility] LABORATORY RBC 4.32 (L) 4.58 - [facility].[address] [facility] x10(6)/[facility] LABORATORY Hemoglobin 12.6 (L) 13.7 - [facility] 16.5 g/dL [facility] LABORATORY Hematocrit 38.9 (L) 40.5 - [facility] 48.5 % [facility]ORATORY MCV 90.0 82.9 - [facility] 93.1 [facility] LABORATORY MCH 29.2 27.5 - [facility] 32.1 pg [facility] LABORATORY MCHC 32.4 32.0 - [facility] 35.7 g/dL [facility] LABORATORY Platelets 193 145 - 357 [facility] x10(3)/[facility] LABORATORY RDWSD 50.4 (H) 36.0 - [facility] RYAN 45.0 [facility] LABORATORY RDWCV 15.2 (H) 11.4 - [facility] 13.8 % [facility] LABORATORY MPV 9.5 7.6 - 12.9 [facility] LABORATORY nRBC % Auto 0.0 % [facility]ORY nRBC Abs Auto 0.000 0.000 - [facility] [address] [facility] x10(3)/[facility] LABORATORY Specimen Anatomical Collection Method Collection Time Receive d Time (Source) Location / / Volume Laterality Blood 12/09/2021 6:18 AM 6:33 EDT AM EDT Resulting Agency Comment Spec In Lab Morgan BROWN HEMATOLOGY ORDERABLES Performing Organization Address City/State/ZIP [place] [address] Lipid Panel (Reflex Direct LDL) (12/09/2021 6:18 AM EDT) athologist Signature Chol, Total 105 mg/dL [facility] LABORATORY Comment: Lower Risk: <200 mg/dL Average Risk: 200-239 mg/dL Higher Risk: >kn=761 mg/dL Triglycerides 133 mg/dL [facility] LABORATORY Comment: Average Risk/Lower Risk: <150 mg/dL Borderline High Risk: 150-199 mg/dL High Risk: 200-499 mg/dL Very High Risk: >ya=322 mg/dL HDL 42 mg/dL [facility] LABORATORY Comment: Males: ?? Higher Risk: <40 mg/dL Females: ?? Higher Risk: <50 mg/dL LDL Cholesterol 36 mg/dL [facility] LABORATORY Comment: Lowest Risk: <100 mg/dL Lower Risk: 100-129 mg/dL Borderline High Risk: 130-159 mg/dL High Risk: 160-189 mg/dL Very High Risk: >tn=633 mg/dL Chol/HDL Ratio 2.5 ratio [facility] LABORATORY Lipid Interpretation See Note [facility] LABORATORY Comment: Lipid management should be guided by a p atient? s ASCVD risk, goals and preferences. ACC/AHA Guidelines recommend high intens ity statin if clinical ASCVD or LDL greater than or equal to 190 mg/dL. http://tinyurl.com/RAD-ZHV-Svxkoqesj Adults aged 40-75 with LDL 70-189 mg/dL should have their 10 year ASCVD risk estimated with the ACC/AHA ASCVD risk es timator http://tools.acc.org/ZHOBV-Qkwz-Pmhsahfz r/ Statin should be discussed if risk [...] City/[facility]/ZIP Code Phon e Number [address] TSH (12/09/2021 6:18 AM EDT) P athologist Signature TSH 1.60 0.27 - 4.20 [facility] mcIU/mL [facility] LABORATORY Comment: Reference Interval (mcIU/mL): Females: ??First Trimester: 0.23-3.88 ??Second Trimester: 0.22-3.90 ??Third Trimester: 0.44-4.66 Specimen Anatomical Collection Method Collection Time Receive d Time (Source) Location / / Volume Laterality Blood 12/09/2021 6:18 AM 2 6:33 EDT AM EDT Resulting Agency Comment Spec In Lab Iker Cuevas MD CHEMISTRY ORDERABLES Performing Organization Address City/[facility]/[place] [address] Hepatic Function Panel (12/09/2021 6:18 AM EDT) P athologist Signature Total Protein 7.3 6.1 - 8.0 BARBARA RYAN g/dL [facility] Albumin 4.2 3.2 - 5.2 BARBARA RYAN g/dL [facility] AST 25 0 - 39 BARBARA RYAN unit/L [facility] ALT 15 0 - 55 BARBARA RYAN unit/L [facility] Alk Phos 75 40 - 130 BARBARA RYAN unit/L [facility] Total 1.1 0.2 - 1.3 [facility] Bilirubin mg/dL [facility] Bili, Direct 0.2 0.0 - 0.3 [facility] Specimen Anatomical Collection Method Collection Time Receive d Time (Source) Location / / Volume Laterality Blood 12/09/2021 6:18 AM 6:33 EDT AM EDT Resulting Agency Comment Spec In Lab Iker Cuevas MD CHEMISTRY ORDERABLES Performing Organization Address City/State/ZIP [place] [address] (ABNORMAL) BMP w/fasting Glucose (12/09/2021 6:18 AM EDT) athologist Signature Glucose 235 (H) 65 - 99 [facility] Fasting mg/dL [facility] Comment: ?Fasting* Glucose Interpretive [...] City/[facility]/ZIP Code Phon e Number [address] Magnesium (12/09/2021 6:18 AM EDT) P athologist Signature Magnesium 0.81 0.69 - 1.07 [facility] mmol/L [facility] Specimen Anatomical Collection Method Collection Time Receive d Time (Source) Location / / Volume Laterality Blood 12/09/2021 6:18 AM 2 6:33 EDT AM EDT Resulting Agency Comment Spec In Lab Iker Cuevas MD CHEMISTRY ORDERABLES Performing Organization Address City/[facility]/ZIP Code Phon e Number [address] (ABNORMAL) Troponin (12/09/2021 6:18 AM EDT) P athologist Signature Troponin-T 1.13 (H) 0.00 - BARBARA DAVIS 0.00 ng/mL [facility] Comment: The 99th percentile [...] additional sample may be indicated. Reference: Third Lee Definition of Myocardial Infarction. Journal of the [place] [employer] 2012;60:1581-98 Specimen Anatomical Collection Method Collection Time Receive d Time (Source) Location / / Volume Laterality Blood 12/09/2021 6:18 AM 6:33 EDT AM EDT Resulting Agency Comment Spec In Lab Iker Cuevas MD CHEMISTRY ORDERABLES Performing Organization Address City/State/ZIP Code [place] [address] XR Chest One View [...] who have questions please contact the health coronary care unit nurse that requested your imaging [...] ho have questions please contact the health coronary care unit nurse that requested your imaging first. Amber Sanches MD IMG DX ORDERABLES (ABNORMAL) BLOOD GAS 2 ARTERIAL (12/09/2021 5:14 AM EDT) Analysis Performed At Patho logist Time Signature pH Art 7.43 7.35 - [facility] 7.45 [facility] pCO2 Art 36 35 - 45 [facility] mmHg [facility] pO2 Art 67 (L) 85 - 104 [facility] LABORATORY HCO3 Art 23.4 20.0 - [facility] 26.[address] [facility] mmol/[facility] BE Art -0.9 -3.0 - 3.0 [facility] mmol/L [facility] Hgb Blood Gas 13.2 (L) 13.7 - [facility] 16.5 g/dL [facility] O2HB Art 91.3 (L) 94.0 - [facility] 97.0 % [facility] COHB Art 0.4 % [...] [facility] FIO2 Art 35 % [facility] Flow Art 8.0 LPM [facility] PF Ratio Art 191 [facility] Specimen Anatomical Collection Method Collection Time Receive d Time (Source) Location / / Volume Laterality Blood 12/09/2021 5:14 AM 2 5:14 EDT AM EDT Iker Cuevas MD CHEMISTRY ORDERABLES Performing Organization Address City/[facility] [place] [address] POCT Glucose (12/09/2021 4:46 AM EDT) P athologist Signature POC Glucose 198 65 - 199 [facility]dL [facility] [...] City/[facility]/[place] [address] (ABNORMAL) POCT Glucose (12/09/2021 3:01 AM EDT) P athologist Signature POC Glucose 225 (H) 65 - 199 [facility] mg/dL [facility] Comment: Supplemental ranges: <140 mg/dL before meals <180 mg/dL all other times of the day Specimen Anatomical Collection Method Collection Time Receive d Time (Source) Location / / Volume Laterality Blood 12/09/2021 3:01 AM 2 3:01 EDT AM EDT Iker Cuevas MD POINT OF CARE TEST ORDERABLE S Performing Organization Address City/State/[place] [address] (ABNORMAL) POCT Glucose (12/08/2021 10:55 PM EDT) athologist Signature POC Glucose 327 (H) 65 - 199 [facility] mg/dL [facility] Comment: Supplemental ranges: <140 mg/dL before meals <180 mg/dL all other times of the day Specimen Anatomical Collection Method Collection Time Receive d Time (Source) Location / / Volume Laterality Blood 12/08/2021 10:55 12/08/2021 PM EDT 10:55 PM EDT Iker Cuevas MD POINT OF CARE TEST ORDERABLE S Performing Organization Address City/[facility]/[place] [address] Heparin (unfractionated) Level (12/08/2021 10:03 PM EDT) athologist Signature Heparin UFH 0.18 IU/mL [facility] Comment: Heparin [...] Organization Address City/State/[place] [address] (ABNORMAL) Troponin (12/08/2021 10:03 PM EDT) athologist Signature Troponin-T 0.92 (H) 0.00 - BARBARA DAVIS 0.00 ng/mL [facility] Comment: The 99th percentile [...] additional sample may be indicated. Reference: Third Lee Definition of Myocardial Infarction. Journal of the [place] [employer] [employer] 2012;60:1581-98 Specimen Anatomical Collection Method Collection Time Receive d Time (Source) Location / / Volume Laterality Blood 12/08/2021 10:03 12/08/2021 PM EDT 10:31 PM EDT Resulting Agency Comment Spec In Lab Iker Cuevas MD CHEMISTRY ORDERABLES Performing Organization Address City/State/ZIP Code Phon e Number [facility] [address] (ABNORMAL) POCT Glucose (12/08/2021 8:22 PM EDT) athologist Signature POC Glucose 429 (H) 65 - 199 BARBARA DAVIS mg/dL [facility] Comment: Supplemental ranges: <140 mg/dL before meals <180 mg/dL all other times of the day Specimen Anatomical Collection Method Collection Time Receive d Time (Source) Location / / Volume Laterality Blood 12/08/2021 8:22 PM 2 8:22 EDT PM EDT Iker Cuevas MD POINT OF CARE TEST ORDERABLE S Performing Organization Address City/[facility]/ZIP Code Phon e Number [address] (ABNORMAL) POCT Glucose (12/08/2021 7:06 PM EDT) athologist Signature POC Glucose 442 (H) 65 - 199 [facility] mg/dL [facility] [...] City/[facility]/[place] [address] Magnesium (12/08/2021 6:02 PM EDT) athologist Signature Magnesium 0.86 0.69 - 1.07 [facility] mmol/L [facility] Specimen Anatomical Collection Method Collection Time Receive d Time (Source) Location / / Volume Laterality Blood 12/08/2021 6:02 PM 2 6:36 EDT PM EDT Resulting Agency Comment Spec In Lab Iker Cuevas MD CHEMISTRY ORDERABLES Performing Organization Address City/[facility]/[place] [address] (ABNORMAL) Basic Metabolic Panel (non-fasting) (12/08/2021 6:02 PM EDT) athologist Signature Glucose Lvl 392 (H) 65 - 199 [facility] mg/dL [facility] Comment: Diabetes: [...] Organization Address City/State/ZIP [place] [address] (ABNORMAL) Differential, Automated (12/08/2021 6:02 PM EDT) [facility] gist Method Time Signature Neutrophils % 89.5 % [facility] Neutr Abs (ANC) 13.97 (H) 1.70 - [facility] 6.10 [facility] x10(3)/[facility] L LABORATORY Lymphocytes % 3.7 % [facility] Lymphocytes Abs 0.6 (L) 0.9 - 3.2 [facility] x10(3)/[facility] LABORATORY Monocytes % 6.1 % [facility] Monocyte Abs 1.0 (H) 0.3 - 0.9 [facility] x10(3)/[facility] LABORATORY Eosinophils % 0.0 % [facility] Eosinophils Abs 0.0 0.0 - 0.4 [facility] x10(3)/[facility] LABORATORY Basophils % 0.2 % [facility] Basophils Abs 0.0 0.0 - 0.1 [facility] x10(3)/[facility] LABORATORY Immature Gran % 0.50 % [facility] [...] 0.08 (H) 0.00 - 0.04 x10(3)/[facility] LABORATORY Specimen Anatomical Collection Method Collection Time Receive d Time (Source) Location / / Volume Laterality Blood 12/08/2021 6:02 PM 6:36 EDT PM EDT Resulting Agency Comment Spec In Lab Morgan BROWN HEMATOLOGY ORDERABLES Performing Organization Address City/State/ZIP [place] [address] (ABNORMAL) Hemogram (12/08/2021 6:02 PM EDT) Analysis Performed At Patho logist Time Signature WBC 15.6 (H) 4.0 - 9.5 [facility] x10(3)/[facility] LABORATORY RBC 4.05 (L) 4.58 - [facility] 5.54 [facility] x10(6)/[facility] LABORATORY Hemoglobin 11.8 (L) 13.7 - BARBARA ZHAORYAN 16.5 g/dL [facility] Hematocrit 35.8 (L) 40.5 - [place] [place]OCK 48.5 % [facility] MCV 88.4 82.9 - [facility] 93.1 [facility] LABORATORY MCH 29.1 27.5 - BARBARA ZHAORYAN 32.1 pg [facility] MCHC 33.0 32.0 - BARBARA ZHAORYAN 35.7 g/dL [facility] Platelets 178 145 - 357 [facility] x10(3)/[facility] LABORATORY RDWSD 49.3 (H) 36.0 - BARBARA ZHAORYAN 45.0 [facility] LABORATORY RDWCV 15.1 (H) 11.4 - BARBARA RYAN 13.8 % [facility] MPV 10.4 7.6 - 12.9 [facility] fL [facility] nRBC % Auto 0.0 % [facility] nRBC Abs Auto 0.000 0.000 - BARBARA ZHAORYAN 0.[address] [facility] x10(3)/[facility] LABORATORY Specimen Anatomical Collection Method Collection Time Receive d Time (Source) Location / / Volume Laterality Blood 12/08/2021 6:02 PM 6:36 EDT PM EDT Resulting Agency Comment Spec In Lab Morgan BROWN HEMATOLOGY ORDERABLES Performing Organization Address City/State/ZIP [place] [address] (ABNORMAL) Troponin (12/08/2021 6:02 PM EDT) P athologist Signature Troponin-T 0.89 (H) 0.00 - [place] VILLAREALCOCK 0.00 ng/mL [facility] Comment: The 99th percentile [...] additional sample may be indicated. Reference: Third Lee Definition of Myocardial Infarction. Journal of the [place] [employer] 2012;60:1581-98 Specimen Anatomical Collection Method Collection Time Receive d Time (Source) Location / / Volume Laterality Blood 12/08/2021 6:02 PM 6:36 EDT PM EDT Resulting Agency Comment Spec In Lab Iker Cuevas MD CHEMISTRY ORDERABLES Performing Organization Address City/State/ZIP Code Phon e Number [place] [id number] COVID-19 PCR (12/08/2021 5:00 [...] using the Simplexa COVID-19 Direct Assay by [employer] as authorized by the FDA issued Emergency [...] Department of Pathology and Laboratory Medicine at [facility], certified under the Clinical Laboratory [...] fact sheets at the following FDA website: https://www.fda.gov/medical-devices/koiztsguzie-bnxyboi-1454-zgxbp-15-kqsqtgsvi- fpm-yigjaniyegagog-foyhcys-devices/ajrro-zhvvmmvlubw-yyek SARS-CoV-2 Source CLINICAL PRACTICE CONSULTANT Swab [facility] Specimen (Source) Anatomical Collection Method Collection Time Re ceived Time Location / / Volume Laterality Nasopharyngeal Swab 12/08/2021 5:00 12/08 PM EDT 6:03 PM EDT Comment: Symptoms->Surveillance Resulting Agency Comment Spec In Lab Iker Cuevas MD MICROBIOLOGY - GENERAL ORDER ROBSON Performing Organization Address City/State/ZIP [place] [address] EKG 12 Lead (12/08/2021 4:40 PM EDT) Component Value Ref Range Test Analysis Performed Pathologis t Method Time At Signature Ventricular rate 78 BPM MUSE SYSTEM Atrial Rate 78 BPM MUSE SYSTEM P-R Interval 152 ms MUSE SYSTEM QRS Duration 96 ms MUSE SYSTEM Q-T Interval 396 ms MUSE SYSTEM QTC Calculated 451 ms MUSE SYSTEM (Bezet) Calculated P Ronceverte 44 degrees MUSE SYSTEM Calculated R Ronceverte -31 degrees MUSE SYSTEM Calculated T Ronceverte 124 degrees MUSE SYSTEM INTERPRETATION Normal sinus [...] POC Glucose 400 (H) 65 - 199 [facility] mg/dL [facility] Comment: Supplemental ranges: <140 mg/dL before meals <180 mg/dL all other times of the day Specimen Anatomical Collection Method Collection Time Receive d Time (Source) Location / / Volume Laterality Blood 12/08/2021 4:34 PM 2 4:34 EDT PM EDT Iker Cuevas MD POINT OF CARE TEST ORDERABLE S Performing Organization Address City/State/ZIP [place] [address] documented in this encounter [...] Given 11/23 10:30 AM EDT 300 mcg (WATCH INSPECTOR) ONCE PRN, Starting on Wed12/10/21 at 1030, [...] Sean ine 0.9) flush 5 mL 0805 ([facility] Hold - Provider: Admin Adt - Reason: Transfer to a Procedural area)0900 (Not Given - Provider: Emma Garcia RN - Reason: Transfer to a Procedural area)1230 ([facility] Unhold - Provider: Admin Adt)1746 [...] acetaminophen (Tylenol) tablet 650 mg 0805 ([facility] Hold - Provider: Admin Adt - Reason: Transfer to a Procedural area)1230 ([facility] Unhold - Provider: Admin Adt) [...] Routine bisacodyL (Dulcolax) suppository 10 mg 0805 ([facility] Hold - Provider: Admin Adt - Reason: Transfer to a Procedural area)1230 ([facility] Unhold - Provider: Admin Adt) [...] (Intra-Procedure), Routine niCARdipine (Cardene) (100 mcg/mL) dilution (WATCH INSPECTOR) (CANCELED) 1030 (Given - Provider: Vitaliy Nobles [...] episode. & nbsp; For persistent hypoglycemia, con shuttle driver longer-acting treatment for the duration of the [...]
Routine documented in this encounter Care Teams Assembler Wet Wash Relationship Specialty Start Date End Date Lovely Vicente MD PCP - General 04/16/[address] [place] [address] documented as of this encounter
--- OUTSIDE RECORDS SUMMARY | 2022-05-01 08:53 | XMS_ITS | Encounter Summary ---
:1945 Author Organization [facility] [place] [address] Care Team Providers Name Role Phone Lovely Vicente MD Primary Care Provider Encounter Details Date Type Department Care Team Description 03/20/2021 Ancillary Procedure Radiology Library [place] [address] [place] [address] [phone] Social History Tobacco Use Types Packs/Day Years [...] Zulma Dolan MD [facility] [place], [place] [address] (Wo rk) 05/28/2022 Laboratory Appointment Lab 05/28/2022 Office Visit Cardiology Zulma Dolan MD [facility] [place] [address] Liz Poole PA [facility] [place] [address] 06/10/2022 Office Visit Dermatology Laura Scherer MD [facility] ER [address] [place], [place] [address] (Wo rk) documented as [...] Organization Address City/State/ZIP Code Phon e Number [place], [place] documented in this encounter Visit Diagnoses Not on filedocumented in this encounter Care Teams Appraiser Personal Property Relationship Specialty Start Date End Date Lovely Vicente MD PCP - General 04/16/[address] [place] [address] documented as of this encounter
--- OUTSIDE RECORDS SUMMARY | 2022-05-01 08:53 | XMS_ITS | Encounter Summary ---
:1945 Author Organization [facility] [place] [address] Care Team Providers Name Role Phone Lovely Vicente MD Primary Care Provider Encounter Details Date Type Department Care Team Description 03/20/2021 Ancillary Procedure Radiology Library [place] [address] [place] [address] [phone] Social History Tobacco Use Types Packs/Day Years [...] MD [facility] [place], [place] [address] (Wo rk) 05/28/2022 Laboratory Appointment Lab 05/28/2022 Office Visit Cardiology Zulma Dolan MD [facility] [place] [address] Liz Poole PA [facility] [place] [address] 06/10/2022 Office Visit Dermatology Laura Scherer MD [facility] ER [address] [place], [place] [address] (Wo rk) documented as of [...] Address City/State/ZIP Code Phon e Number [place], [place] documented in this encounter Visit Diagnoses Not on filedocumented in this encounter Care Teams Java Developer With Security Clearance Relationship Specialty Start Date End Date Lovely Vicente MD PCP - General 04/16/[address] [place] [address] documented as of this encounter
--- OUTSIDE RECORDS SUMMARY | 2022-05-01 08:53 | XMS_ITS | Encounter Summary ---
:1945 Author Organization [facility] [place] [address] Care Team Providers Name Role Phone Lovely Vicente MD Primary Care Provider Encounter Details Date Type Department Care Team Description 11/07/2019 TH Visit Cardiology at [facility] Danette Maxwell (arteriosclerotic heart disease); (TeleHealth) [facility] STACIE Gomes Cardiomyopathy, ischemic; Drive [facility] S/P CABG x 3; [place], [place] MARIA VICTORIA (obstructive sleep apnea) on CPAP [phone] CARDIOLOGY [phone] [place], [place] [address] Social History Tobacco Use Types [...] regurgitation present. 07/07/2019 - 07/21/2019 Zio Patch Drupal Web Developer The patient had a minimum heart [...] at last check 6. Post-op atrial fibrillation [id number] (CHF, HTN, DM, vascular disease, thromboembolism) [...] Cardiology Zulma Dolan MD [facility] [place], [place] [address] (Wo rk) 05/28/2022 Laboratory Appointment Lab 05/28/2022 Office Visit Cardiology Zulma Dolan MD [facility] [place] [address] Liz Poole PA [facility] [place] [address] 06/10/2022 Office Visit Dermatology Laura Scherer MD [facility] DR [address] [place], [place] [address] (Wo rk) documented as of this encounter Visit Diagnoses Diagnosis ASHD (arteriosclerotic heart disease) Coronary atherosclerosis of unspecified type of vessel, lovelock or graft Cardiomyopathy, ischemic Other specified forms of chronic ischemi c heart disease S/P CABG x 3 Postsurgical aortocoronary bypass status MARIA VICTORIA (obstructive sleep apnea) on CPAP Obstructive sleep apnea (adult) (pediatr ic) documented in this encounter Care Teams Photocomposing Machine Operator Relationship Specialty Start Date End Date Lovely Vicente MD PCP - General 04/16/[address] [place], [place] [address] documented as of this encounter
--- OUTSIDE RECORDS SUMMARY | 2022-05-01 08:53 | XMS_ITS | Encounter Summary ---
:1945 [place] [address] Care Team Providers Name Role Phone Lovely Vicente MD Primary Care Provider Encounter Details Date Type Department Care Team Description 03/20/2021 Telephone Neurology at [facility] Hugo Gaston MD [facility] [place] [address] [place] [address] [phone] (Wo rk) Social History Tobacco Use Types [...] Gaston MD Department of Neurology Pager # [phone] documented in this encounter Plan of Treatment Upcoming Encounters Date Type Specialty Care Team Description 05/28/2022 Appointment Cardiology Zulma Dolan MD [facility] [place], [place] [address] (Wo rk) 05/28/2022 Laboratory Appointment Lab 05/28/2022 Office Visit Cardiology Zulma Dolan MD [facility] [place] [address] Liz Poole PA [facility] [place] [address] 06/10/2022 Office Visit Dermatology Laura Scherer MD [facility] [address] [place], [place] [address] (Wo rk) documented as of this encounter Visit Diagnoses Not on filedocumented in this encounter Care Teams Pathology Tech Relationship Specialty Start Date End Date Lovely Vicente MD PCP - General 04/16/[address] [place] [address] documented as of this encounter
--- OUTSIDE RECORDS SUMMARY | 2022-05-01 08:53 | XMS_ITS | Encounter Summary ---
:1945 Author Organization [facility] [place] [address] Care Team Providers Name Role Phone Lovely Vicente MD Primary Care Provider Encounter Details Date Type Department Care Team Description 02/19/2020 Telephone Dermatology at [facility] Ariana Wilder LPN [address] [place] [address] Social History Tobacco Use Types Packs/Day [...] MD [facility] [place], [place] [address] (Wo rk) 05/28/2022 Laboratory Appointment Lab 05/28/2022 Office Visit Cardiology Zulma Dolan MD [facility] [place] [address] Liz Poole PA [facility] [place] [address] 06/10/2022 Office Visit Dermatology Laura Scherer MD [facility] [address] [place], [place] [address] (Wo rk) documented as of this encounter Visit Diagnoses Not on filedocumented in this encounter Care Teams Hearing Specialist Relationship Specialty Start Date End Date Lovely Vicente MD PCP - General 04/16/[address] [place] [address] documented as of this encounter
--- OUTSIDE RECORDS SUMMARY | 2022-05-01 08:53 | XMS_ITS | Encounter Summary ---
:1945 [place] [address] Care Team Providers Name Role Phone Lovely Vicente MD Primary Care Provider Encounter Details Date Type Department Care Team Description 07/12/2019 Office Visit Dermatology at [facility], Rigoberto Yarbrough (actinic keratosis); MD SHAY Quick III (seborrheic keratosis); [address] [facility] Multiple benign nevi; [place] [address] History of melanoma [phone] [facility] [place], [place] [address] Social History Tobacco Use Types [...] with questions or concerns. Note initiated by: JHONSON Ryder, Clinical Scribe has performed the documentation [...] Zulma Dolan MD [facility] Dr [place], [place] [address] (Wo rk) 05/28/2022 Laboratory Appointment Lab 05/28/2022 Office Visit Cardiology Zulma Dolan [place] [address] Liz Poole PA [facility] [place] [address] 06/10/2022 Office Visit Dermatology Laura Scherer MD [facility] [address] [place], [place] [address] (Wo rk) documented as of this encounter Visit Diagnoses Diagnosis AK (actinic keratosis) Actinic keratosis SK (seborrheic keratosis) Other seborrheic keratosis Multiple benign nevi Benign neoplasm of skin, site unspecifie d History of melanoma Personal history of malignant melanoma o f skin documented in this encounter Care Teams Traveling Engineer Relationship Specialty Start Date End Date Lovely Vicente MD PCP - General 04/16/15 [facility] [address] [place] [address] documented as of this encounter
--- OUTSIDE RECORDS SUMMARY | 2022-05-01 08:53 | XMS_ITS | Encounter Summary ---
:1945 Author Organization [facility] [place] [address] Care Team Providers Name Role Phone Lovely Vicente MD Primary Care Provider Encounter Details Date Type Department Care Team Description 12/07/2021 External Results Administration [facility] [place] [address] Social History Tobacco Use Types Packs/Day [...] MD [facility] [place] [address] [place] [address] (Wo rk) 05/28/2022 Laboratory Appointment Lab 05/28/2022 Office Visit Cardiology Zulma Dolan MD [place] [address] Liz Poole PA [facility] [place] [address] 06/10/2022 Office Visit Dermatology Laura Scherer MD [facility] ER [address] [place], [place] [address] (Wo rk) documented as of [...] on filedocumented in this encounter Care Teams Costume Specialist Relationship Specialty Start Date End Date Lovely Vicente MD PCP - General 04/16/[address] [place] [address] documented as of this encounter
--- OUTSIDE RECORDS SUMMARY | 2022-05-01 08:53 | XMS_ITS | Encounter Summary ---
:1945 Author Organization [facility] [place] [address] Care Team Providers Name Role Phone Lovely Vicente MD Primary Care Provider Encounter Details Date Type Department Care Team Description 12/08/2021 External Results Non-Invasive Cardiology Lab Mar y None [facility] [place] [address] Social History Tobacco Use Types Packs/Day [...] [facility] [place], [place] [address] (Wo rk) 05/28/2022 Laboratory Appointment Lab 05/28/2022 Office Visit Cardiology Zulma Dolan MD [facility] [place] [address] Liz Poole PA [facility] [place] [address] 06/10/2022 Office Visit Dermatology Laura Scherer MD [facility] [address] [place], [place] [address] (Wo rk) documented as [...] filedocumented in this encounter Care Teams Drier And Grinder Tender Relationship Specialty Start Date End Date Lovely Vicente MD PCP - General 04/16/[address] [place] [address] documented as of this encounter
--- OUTSIDE RECORDS SUMMARY | 2022-05-01 08:53 | XMS_ITS | Encounter Summary ---
:1945 Author Organization [place] [address] Care Team Providers Name Role Phone Lovely Vicente MD Primary Care Provider Reason for Referral Diagnostic Test (Routine) - Closed Specialty Diagnoses / Procedures Referred By Contact Refer red To Contact Cardiology Diagnoses Chronic systolic heart failure Danette Maxwell APRN [facility] Non-Inv Card Lab Procedures Echocardiogram Transthoracic(Leb) [facility] [place] [address] [place] [address] Referral ID Status Reason Start Date Expiration Date Visits V isits Requested Authorized [id number] Closed Specialty 07/17/2019 09/14/2019 1 1 Service Requested Reason for Visit Diagnostic Test (Routine) - Closed Specialty Diagnoses / Procedures Referred By Contact Refer red To Contact Cardiology Diagnoses Chronic systolic heart failure Danette Maxwell APRN [facility] Non-Inv Card Lab Procedures Echocardiogram Transthoracic(Leb) [facility] [place] [address] [place] [address] Referral ID Status Reason Start Date Expiration Date Visits V isits Requested Authorized [id number] Closed Specialty 07/17/2019 09/14/2019 1 1 Service Requested Encounter Details Date Type Department Care Team Description 07/28/2019 Hospital Encounter Non-Invasive Chronic s ystolic [place] [address] Social History Tobacco Use Types Packs/Day [...] Zulma Dolan MD [facility] [address] [place], [place] [address] (Wo rk) 05/28/2022 Laboratory Appointment Lab 05/28/2022 Office Visit Cardiology Zulma Dolan MD [facility] [place] [address] Liz Poole PA [facility] [place] [address] 06/10/2022 Office Visit Dermatology Laura Scherer MD [facility] DR [address] [place], [place] [address] (Wo rk) documented as [...] Mccollum ? (Age): 1945(74y) Med Rec#: ? [id number] ?Sex: ?M ? Site Loc: ? [facility] ?Ht / Wt: ??172(cm)/81(kg) Pt. Loc: ?Echo Lab ?BSA: ?1.94 Study Date: ?? 07/28/2019 ?Pt. Type: Outpatient Tape: ? Referring: MARY ELLEN Reading: Ifeanyi Truong ([id number]) Rectangular Tank Cooper: Fadumo Flanagan RDCS, FASE Diagnosis: *Chronic systolic [...] E-wave Vmax ?1 ?m/sec ? MV deceleration uhdl754.5 ? msec ? MV A-wave Vmax ?1 [...] ? Mid-Inferior ?Hypokinetic ? Mid-Inferoseptal ?Normal ? [place]-Septal ? Normal ? [place]-Anterior ? Hypokinetic ? [place]-Lateral ?Normal ? [place]-Inferior ? Akinetic ? [place]-Tip ?Hypokinetic ? This report has been electronically sign ed by: _ Ifeanyi Truong M.D. ? 07/28/2019 0 8:38:01 Images reviewed and interpretation verif ied [facility] Procedure Note Ifeanyi Truong MD - 07/28/2019Formatt ing of this note might be different from the original. Procedure: Transthoracic Echocardiogram Patient: NATALYA MCBRIDE(Age): [birth year]74y) Med Rec#: [id number] Sex: M Site Loc: [facility] Ht / Wt: 172(cm)/81(kg) Pt. Loc: Echo Lab BSA: 1.94 Study Date: 07/28/2019 Pt. Type: Outpati ent Tape: Referring: MARY ELLEN Reading: Ifeanyi Truong ([id number]) Rectangular Tank Cooper: Fadumo Flanagan [facility] Diagnosis: *Chronic systolic (congestive) heart fa [...] MV E-wave Vmax 1 m/sec MV deceleration wpmd232.5 msec MV A-wave Vmax 1 m/sec MV [...] Normal Mid-Posterolateral Normal Mid-Inferior Hypokinetic Mid-Inferoseptal Normal [place]-Septal Normal [place]-Anterior Hypokinetic [place]-Lateral Normal [place]-Inferior Akinetic [place]-Tip Hypokinetic This report has been electronically sign ed by: _ Ifeanyi Truong M.D. 07/28/2019 08:38:0 1 Images reviewed and interpretation elvie hwang [facility] Danette A Hans QUINONES [...] Routine documented in this encounter Care Teams Rope Maker Relationship Specialty Start Date End Date Lovely Vicente MD PCP - General 04/16/[address] [place] [address] documented as of this encounter
--- OUTSIDE RECORDS SUMMARY | 2022-05-01 08:53 | XMS_ITS | Encounter Summary ---
:1945 Author Organization [facility] [place] [address] Care Team Providers Name Role Phone Lovely Vicente MD Primary Care Provider Encounter Details Date Type Department Care Team Description 07/28/2019 Laboratory Appointment Lab 3L [facility] [place] [address] Social History Tobacco Use Types Packs/Day Years [...] MD [facility] er [place], [place] [address] (Wo rk) 05/28/2022 Laboratory Appointment Lab 05/28/2022 Office Visit Cardiology Zulma Dolan MD [facility] [place] [address] Liz Poole PA [facility] [address] 06/10/2022 Office Visit Dermatology Laura Scherer MD [facility] DR [address] [place] [address] (Wo rk) documented as of this encounter [...] Address City/State/[place] [address] (ABNORMAL) Basic Metabolic Panel (non-fasting) (07/28/2019 8:36 AM EST) athologist Signature Glucose Lvl 153 65 - 199 [facility] mg/dL [facility] Comment: [...] of body mass or the acutely ill. http://Framed [email or web address].comnkf eGFR 81 >=60 mL/min/1.73 m?? [facility] Comment: The eGFR was calculated using the CKD-EP I equation. As with all creatinine based estimates of kidney function, eGFR values calculated with the CKD-EPI equation are not accurate in patients wi th acute kidney failure, extremes of body mass or the acutely ill. http://Framed Data/[facility] CITYnkf Specimen Anatomical Collection Method Collection Time Receive d Time (Source) Location / / Volume Laterality Blood specimen 07/28/2019 8:36 AM 020 8:46 (specimen) EST AM EST Resulting Agency Comment Spec In Lab Danette Maxwell APRN CHEMISTRY ORDERABLES Performing Organization Address City/State/[place] [address] documented in this encounter Visit Diagnoses Diagnosis Chronic systolic heart failure documented in this encounter Care Teams Preservationist Relationship Specialty Start Date End Date Lovely Vicente MD PCP - General 04/16/[address] [place] [address] documented as of this encounter
--- OUTSIDE RECORDS SUMMARY | 2022-05-01 08:53 | XMS_ITS | Encounter Summary ---
:1945 Author Organization [facility] [place] [address] Care Team Providers Name Role Phone Lovely Vicente MD Primary Care Provider Encounter Details Date Type Department Care Team Description 04/16/2021 Laboratory Appointment Lab 3L [facility] [place] [address] Social History Tobacco Use Types Packs/Day Years [...] [facility] [place], [place] [address] (Wo rk) 05/28/2022 Laboratory Appointment Lab 05/28/2022 Office Visit Cardiology Zulma Dolan [place] [facility] [address] Liz Poole PA [facility] [place] [address] 06/10/2022 Office Visit Dermatology Laura Scherer MD [facility] ER DR [address] [place], [place] [address] (Wo rk) documented as of this encounter [...] Organization Address City/State/[place] [address] (ABNORMAL) Basic Metabolic Panel (non-fasting) (04/16/2021 9:58 AM EDT) athologist Signature Glucose Lvl 77 65 - 199 [facility] mg/dL [facility] Comment: Diabetes: >=200 mg/dL plus symp toms BUN 23 (H) 10 - 20 mg/dL [facility] Creatinine 1.26 0.80 - 1.50 mg/dL [facility] Sodium 140 135 - 145 mmol/L [facility] Potassium 5.2 (H) 3.5 - 5.0 mmol/L [facility] [...] [facility] Estimated GFR 55 (L) >=60 [...] Organization Address City/State/[place] [address] documented in this encounter Visit Diagnoses Diagnosis Chronic systolic heart failure documented in this encounter Care Teams Electronics Lead Relationship Specialty Start Date End Date Lovely Vicente MD PCP - General 04/16/[address] [place] [address] documented as of this encounter
--- OUTSIDE RECORDS SUMMARY | 2022-05-01 08:53 | XMS_ITS | Encounter Summary ---
:1945 Author Organization [facility] [place] [address] Care Team Providers Name Role Phone Lovely Vicente MD Primary Care Provider Encounter Details Date Type Department Care Team Description 12/07/2021 Telephone Cardiology Eddi Briceño Jr., [facility] [place] [address] [facility] [phone] CARDIOLOGY DEPT [place], [place] [address] (Wo rk) Social History Tobacco [...] the OSH ED provider/staff member. Referring Location: [facility] Referring Provider: Marisela Dean, PROBATE CLERK [address] [place] [address] Don Veda Kushal 76 y.o. w / [...] MD [facility] [place] [address] Liz Poole PA [facility] [place] [address] 06/10/2022 Office Visit Dermatology Laura Scherer MD [facility] DR [address] [place], [place] [address] (Wo rk) documented as of this encounter Visit Diagnoses Not on filedocumented in this encounter Care Teams Credit Portfolio Manager Relationship Specialty Start Date End Date Lovely Vicente MD PCP - General 04/16/15 [facility] [address] [place] [address] documented as of this encounter
--- OUTSIDE RECORDS SUMMARY | 2022-05-01 08:53 | XMS_ITS | Encounter Summary ---
:1945 [place] [address] Care Team Providers Name Role Phone Lovely Vicente MD Primary Care Provider Encounter Details Date Type Department Care Team Description 04/16/2021 Office Visit Cardiology at [facility] Liz Poole, Chronic systolic heart [facility] [place] [address] Cardiology Dept [phone] [place], [place] [address] Social History Tobacco Use Types [...] was feeling good. 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 07/07/2019 - 07/21/2019 Zio Patch Packing Checker The patient had a minimum heart rate [...] K+ 5.2 today 6. Post-op atrial fibrillation [id number] (CHF, HTN, DM, vascular disease, thromboembolism) [...] Cardiology Zulma Dolan MD [facility] [place], [place] [address] (Wo rk) 05/28/2022 Laboratory Appointment Lab 05/28/2022 Office Visit Cardiology Zulma Dolan MD [facility] [place] [address] Liz Poole PA [facility] [place] [address] 06/10/2022 Office Visit Dermatology Laura Scherer MD [facility] DR [address] [place], [place] [address] (Wo rk) documented as of this encounter Results (ABNORMAL) Basic Metabolic Panel (non-fasting) (04/16/2021 9:58 AM EDT) athologist Signature Glucose Lvl 77 65 - 199 [facility] mg/dL [facility] Comment: Diabetes: [...] Organization Address City/State/[place] [address] (ABNORMAL) pro-Brain Natriuretic Peptide [...] Organization Address City/State/[place] [address] documented in this encounter Visit Diagnoses Diagnosis Chronic systolic heart failure documented in this encounter Care Teams Maintenance Worker Municipal Relationship Specialty Start Date End Date Lovely Vicente MD PCP - General 04/16/[address] [place] [address] documented as of this encounter
--- OUTSIDE RECORDS SUMMARY | 2022-05-01 08:53 | XMS_ITS | Encounter Summary ---
:1945 Author Organization [facility] [place] [address] Care Team Providers Name Role Phone Lovely Vicente MD Primary Care Provider Encounter Details Date Type Department Care Team Description 07/28/2019 Office Visit Cardiology at [facility] Danette Maxwell Chronic systolic heart failu re; [facility] A, STACIE ASHD (arteriosclerotic heart disease); Drive [facility] S/P CABG x 3; [place], [place] MARIA VICTORIA (obstructive sleep apnea) on CPAP; [phone] CARDIOLOGY Mixed hyperlipidemia [phone] [place], [place] [address] Social History Tobacco Use Types [...] in this encounter Progress Notes Danette Maxwell, HYDROPULPER OPERATOR - 07/28/2019 9:40 AM EST Images [...] regurgitation present. 07/07/2019 - 07/21/2019 Zio Patch Mechanical Estimator The patient had a minimum heart rate [...] K+ 4.5 today 6. Post-op atrial fibrillation [id number] (CHF, HTN, DM, vascular disease, thromboembolism) Amiodarone discontinued Continue coumadin INR managed by PCP 7. PAD 08/06/2017: Right 1st, 2nd, 3rd toe amputation 08/11/2017: Left??femoral arterial access, RLE??angiogram, Balloon angioplasty of R PT with Eleazar 2.5 x 80 10/25/2017: right popliteal-pedal bypass at [facility] 8. Hypothyrodism S/p thyroidectomy for goiter [...] advised: Refer to EP (Dr. Mcelroy in [place]) 5. Heart Failure Clinic follow up scheduled for: 3 months with proBNP and BMP Danette Maxwell APRN 07/28/2019 documented in this encounter Plan of Treatment Upcoming Encounters Date Type Specialty Care Team Description 05/28/2022 Appointment Cardiology Zulma Dolan MD [facility] [place], [place] [address] (Wo rk) 05/28/2022 Laboratory Appointment Lab 05/28/2022 Office Visit Cardiology Zulma Dolan MD [facility] [place] [address] Liz Poole PA [facility] [place] [address] 06/10/2022 Office Visit Dermatology Laura Scherer MD [facility] DR [address] [place], [place] [address] (Wo rk) documented as of this encounter Results (ABNORMAL) Basic Metabolic Panel (non-fasting) (07/28/2019 8:36 AM EST) P athologist Signature Glucose Lvl 153 65 - 199 [facility] mg/dL [facility] Comment: Diabetes: >=200 mg/dL plus symp toms BUN 22 (H) 10 - 20 mg/dL [facility] Creatinine 1.05 0.80 - 1.50 mg/dL [facility] [...] of body mass or the acutely ill. http://Lookout/[facility] Hospitalk eGFR 81 >=60 mL/min/1.73 m?? [facility] Comment: The eGFR was calculated using the CKD-EP I equation. As with all creatinine based estimates of kidney function, eGFR values calculated with the CKD-EPI equation are not accurate in patients wi th acute kidney failure, extremes of body mass or the acutely ill. http://Lookout/[facility] TULSAnkf Specimen Anatomical Collection Method Collection Time Receive d Time (Source) Location / / Volume Laterality Blood specimen 07/28/2019 8:36 AM 020 8:46 (specimen) EST AM EST Resulting Agency Comment Spec In Lab Danette Maxwell APRN CHEMISTRY ORDERABLES Performing Organization Address City/State/ZIP Code Phon e Number [address] (ABNORMAL) pro-Brain Natriuretic Peptide [...] [facility]/[place] [address] documented in this encounter Visit Diagnoses Diagnosis Chronic systolic heart failure ASHD (arteriosclerotic heart disease) Coronary atherosclerosis of unspecified type of vessel, [place] or graft S/P CABG x 3 Postsurgical aortocoronary bypass status MARIA VICTORIA (obstructive sleep apnea) on CPAP Obstructive sleep apnea (adult) (pediatr ic) Mixed hyperlipidemia documented in this encounter Care Teams Bulb Planter Relationship Specialty Start Date End Date Lovely Vicente MD PCP - General 04/16/[address] [place] [address] documented as of this encounter
--- OUTSIDE RECORDS SUMMARY | 2022-05-01 08:53 | XMS_ITS | Encounter Summary ---
:1945 [place] [address] Care Team Providers Name Role Phone Lovely Vicente MD Primary Care Provider Reason for Visit Reason Comments Skin Cancer Examination Encounter Details Date Type Department Care Team Description 03/20/2021 Office Visit Dermatology at [facility] Brennen Rene MD History of melanoma; [facility] History of dysplastic nevus; [address] Multiple benign nevi; [place] [address] [facility] [place] (seborrheic keratosis); [phone] [address]-DERMATOLOGY [place] (actinic keratosis) [place], [place] [address] Social History Tobacco Use Types [...] no SOCIAL HISTORY 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 Last visit at [facility] Derm: 01/02/2020 Medications: Reviewed in eD-H Allergies: [...] FSE; history of Melanoma []Note routed to sock knitter [x]Recall has been placed in scheduling system []Appointment scheduled at checkout Scribe attestation: Yoana Pang LPN has performed the documentation for this encounter in the presence of and acting as a scribe for LAURA RENE MD I performed the above scribed service and agree with the accuracy of the documentation in this encounter. Reviewed and signed by: LAURA RENE MD Dermatology [facility] documented in this encounter Plan of Treatment Upcoming Encounters Date Type Specialty Care Team Description 05/28/2022 Appointment Cardiology TrudiZulma Knowles MD [facility] [place], [place] [address] (Wo rk) 05/28/2022 Laboratory Appointment Lab 05/28/2022 Office Visit Cardiology Zulma Dolan MD [facility] [place] [address] Liz Poole PA [facility] [place] [address] 06/10/2022 Office Visit Dermatology Laura Rene MD [facility] DR [address] [place], [place] [address] (Wo [...] keratosis documented in this encounter Care Teams Yellow Pages Space Salesperson Relationship Specialty Start Date End Date Lovely Vicente MD PCP - General 04/16/[address] [place] [address] documented as of this encounter
--- OUTSIDE RECORDS SUMMARY | 2022-05-01 08:54 | XMS_ITS | Encounter Summary ---
:1945 Author Organization [facility] Address [address] [place] [address] Care Team Providers Name Role Phone Lovely Vicente MD Primary Care Provider Reason for Referral Diagnostic Test (Routine) - Specialty Diagnoses / Procedures Referred By Contact Refer red To Contact Cardiology Diagnoses Chronic systolic heart failure Danette Maxwell APRN [facility] Non-Inv Card Lab Procedures Echocardiogram Transthoracic(Leb) [facility] [place] [address] [place] [address] Referral ID Status Reason Start Date Expiration Visits Visits Date Requested Authorized [id number] Specialty 08/15/2018 08/15/2018 1 1 Service Requested Encounter Details Date Type Department Care Team Description 04/18/2018 Office Visit Cardiology [place] [facility] Danette Maxwell Chronic systolic heart failu re; [facility] STACIE Gomes On amiodarone therapy; [facility] Ischemic cardiomyopathy; [place], [place] DR ONOFRE (arteriosclerotic cardiovascular d isease) [phone] CARDIOLOGY [phone] [place], [place] [address] Social History Tobacco Use Types Packs/Day Years [...] in this encounter Progress Notes Danette Maxwell, NOTE TELLER - 04/18/2018 10:40 AM EDT ID [...] Dolan MD [facility] [address] [place], [place] [address] (Wo rk) 05/28/2022 Laboratory Appointment Lab 05/28/2022 Office Visit Cardiology Zulma Dolan MD [facility] [place] [address] Liz Poole PA [facility] [place] [address] 06/10/2022 Office Visit Dermatology Laura Scherer MD [facility] [address] [place], [place] [address] (Wo rk) documented as of this encounter Results ECHOCARDIOGRAM COMPLETE W CONTRAST (08/15/2018 7:55 AM EST) P athologist Signature EF 35 HEARTLAB SYSTEM Anatomical Region Laterality Modality Other Specimen (Source) Anatomical Location Collection Method / Collectio n Time Received Time / Laterality Volume 08/15/2018 Narrative 08/15/2018 8:18 AM EST Procedure: ?Transthoracic Echocardiogram Patient: ?NATALYA Mccollum ? (Age): 1945(73y) Med Rec#: ? [id number] ?Sex: ?M ? Site Loc: ? [facility] ?Ht / Wt: ??172(cm)/81(kg) Pt. Loc: ?Echo Lab ?BSA: ?1.94 Study Date: ?? 08/15/2018 ?Pt. Type: Outpatient Tape: ? Referring: MARY ELLEN Reading: Scott Ortega ([id number]) Mill Work: Laura Sargent Diagnosis: *Chronic systolic (congestive) heart [...] E-wave Vmax ?1.2 ?m/sec ? MV deceleration gwhv175.4 ? msec ? MV A-wave Vmax ?0.7 [...] ? Mid-Inferior ?Hypokinetic ? Mid-Inferoseptal ?Hypokinetic ? Jackson-Septal ? Akinetic ? Jackson-Anterior ? Hypokinetic ? Jackson-Lateral ?Akinetic ? Jackson-Inferior ? Hypokinetic ? Jackson-Tip ?Akinetic ? This report has been electronically sign ed by: _ Scott Ortega M.D. ? 08/15/2018 08:17:26 Images reviewed and interpretation verif ied [facility] Cardiac Ultrasound Laboratory Procedure Note Scott Ortega MD - 08/15/2018Format ting of this note might be different from the original. Procedure: Transthoracic Echocardiogram Patient: NATALYA MCBRIDE(Age): [birth year]73y) Med Rec#: [id number] Sex: M Site Loc: [facility] Ht / Wt: 172(cm)/81(kg) Pt. Loc: Echo Lab BSA: 1.94 Study Date: 08/15/2018 Pt. Type: Outpati ent Tape: Referring: MARY ELLEN Reading: Scott Ortega ([id number]) Mill Work: Laura Sargent Diagnosis: *Chronic systolic (congestive) heart [...] MV E-wave Vmax 1.2 m/sec MV deceleration rsrn589.4 msec MV A-wave Vmax 0.7 m/sec MV [...] Akinetic Mid-Posterolateral Akinetic Mid-Inferior Hypokinetic Mid-Inferoseptal Hypokinetic Jackson-Septal Akinetic Jackson-Anterior Hypokinetic Jackson-Lateral Akinetic Jackson-Inferior Hypokinetic Jackson-Tip Akinetic This report has been electronically sign ed by: _ Scott Ortega M.D. 08/15/2018 08:17: 26 Images reviewed and interpretation verif ied [facility] Cardiac Ultrasound Laboratory Danette Maxwell APRN ECHO ORDERABLES (ABNORMAL) Basic Metabolic Panel (non-fasting) (04/18/2018 9:19 AM EDT) P athologist Signature Glucose Lvl 167 65 - 199 [facility] mg/dL [facility] [...] of body mass or the acutely ill. http://ClearSky Technologies/[facility] eGFR 70 >=60 mL/min/1.73 m?? [facility] Comment: The eGFR was calculated using the CKD-EP I equation. As with all creatinine based estimates of kidney function, eGFR values calculated with the CKD-EPI equation are not accurate in patients wi th acute kidney failure, extremes of body mass or the acutely ill. http://Clear[employer] Technologies/[facility] Specimen Anatomical Collection Method Collection Time Receive d Time (Source) Location / / Volume Laterality Blood specimen 04/18/2018 9:19 AM 018 9:34 (specimen) EDT AM EDT Resulting Agency Comment Spec In Lab Danette Maxwell APRN CHEMISTRY ORDERABLES Performing Organization Address City/State/[place] [address] (ABNORMAL) pro-Brain Natriuretic Peptide (04/18/2018 9:19 AM EDT) P athologist Signature ProBNP 2,199 (H) <=125 [facility] pg[facility]mL [facility] LABORATORY Specimen Anatomical Collection Method Collection Time Receive d Time (Source) Location / / Volume Laterality Blood specimen 04/18/2018 9:19 AM 018 9:34 (specimen) EDT AM EDT Resulting Agency Comment Spec In Lab Danette Maxwell APRN CHEMISTRY ORDERABLES Performing Organization Address City/State/[place] [address] documented in this encounter Visit Diagnoses Diagnosis Chronic systolic heart failure On amiodarone therapy Ischemic cardiomyopathy Other specified forms of chronic ischemi c heart disease ASCVD (arteriosclerotic cardiovascular d isease) Unspecified cardiovascular disease Chronic systolic heart failure documented in this encounter Care Teams Blood Donor Recruiter Relationship Specialty Start Date End Date Lovely Vicente MD PCP - General 04/16/[address] [place] [address] documented as of this encounter
--- OUTSIDE RECORDS SUMMARY | 2022-05-01 08:54 | XMS_ITS | Encounter Summary ---
:1945 Author Organization [facility] [place] [address] Care Team Providers Name Role Phone Lovely Vicente MD Primary Care Provider Encounter Details Date Type Department Care Team Description 09/16/2017 Hospital [place] [address] Social History Tobacco Use Types Packs/Day [...] times daily. 10/08 Needle aspirin 81 mg EC Take 81 mg [...] 0 04/18/2018 acids 1,000 mg Capsule daily. documented as of this encounter Plan of Treatment Upcoming Encounters Date Type Specialty Care Team Description 05/28/2022 Appointment Cardiology Zulma Dolan MD [facility] [place], [place] [address] (Wo rk) 05/28/2022 Laboratory Appointment Lab 05/28/2022 Office Visit Cardiology Zulma Dolan MD [facility] [place] [address] Liz Poole PA [facility] [place] [address] 06/10/2022 Office Visit Dermatology Laura Scherer MD [facility] [address] [place] [place], [place] [address] (Wo rk) documented as of this encounter Procedures Procedure Name Priority Date/Time Associated Diagnosis Comme [facility] SURGICAL PATHOLOGY Routine 09/16/2017 7:28 AM Res ults for this REPORT EST procedure are i n the results section. documented in this encounter Results Surgical Pathology Report (09/16/2017 7:28 AM EST) Component Value Ref Test Analysis Performed At [facility] Method Time Signature Surgical [id number] ? Location: [facility] Pathology [place] Report The signing pathologist has (i) examined [...] Verified: ??09/24/2017 ?Pathologist Performed at: ??-[facility] [place]. [place], [place], [place] CLINICAL INFORMATION Specimen Submitted: A - [...] Organization Address City/State/[place] [address] documented in this encounter Visit Diagnoses Not on filedocumented in this encounter Care Teams Plastic Products Sales Representative Relationship Specialty Start Date End Date Lovely Vicente MD PCP - General 04/16/[address] [place] [address] documented as of this encounter
--- OUTSIDE RECORDS SUMMARY | 2022-05-01 08:54 | XMS_ITS | Encounter Summary ---
:1945 Author Organization [place] [address] Care Team Providers Name Role Phone Lovely Vicente MD Primary Care Provider Reason for Visit Reason Onset Date Comments Other 03/24/2019 cardiac clearance ne eded Encounter Details Date Type Department Care Team Description 03/24/2019 Telephone Cardiology at [facility] Danette Maxwell, Other (cardiac [facility] TOP FRAME FITTER clearance needed) [place] [address] CARDIOLOGY [place], [place] [address] (Wo rk) Social History Tobacco [...] AM EDT Leonela from [facility] [place] called requesting cardiac clearance for this patient who is to have a colonoscopy on 04/04/19. He is on anticoagulation and they will need to bridge him. Their phone # [phone], fax# [phone]. Thank you. documented in this encounter Plan of Treatment Upcoming Encounters Date Type Specialty Care Team Description 05/28/2022 Appointment Cardiology Zulma Dolan MD [facility] [place], [place] [address] (Wo rk) 05/28/2022 Laboratory Appointment Lab 05/28/2022 Office Visit Cardiology Zulma Dolan MD [facility] [place] [address] Liz Poole PA [facility] [place] [address] 06/10/2022 Office Visit Dermatology Laura Scherer MD [facility] [address] [place], [place] [address] (Wo rk) documented as of this encounter Visit Diagnoses Not on filedocumented in this encounter Care Teams Broadcaster Relationship Specialty Start Date End Date Lovely Vicente MD PCP - General 04/16/[address] [place] [address] documented as of this encounter
--- OUTSIDE RECORDS SUMMARY | 2022-05-01 08:54 | XMS_ITS | Encounter Summary ---
:1945 Author Organization [facility] Address [facility] [place] [address] Care Team Providers Name Role Phone Lovely Vicente MD Primary Care Provider Encounter Details Date Type Department Care Team Description 10/07/2017 Office Visit Cardiology at [facility] Danette Maxwell Chronic systolic heart failu re; [facility] A, QUOTER S/P CABG x 3; Drive [facility] On amiodarone therapy; [place], [place] Atrial fibrillation, unspecified type; [id number] CARDIOLOGY ASCVD (arteriosclerotic cardiovascular d isease) [phone] [place], [place] [address] Social History Tobacco Use Types [...] - documented in this encounter Progress Notes [place] Danette A, QUOTER - 10/07/2017 11:20 AM EDT ID and [...] and 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 Espino On IV antibiotics at [facility] Today: Mr. Fatima is [...] continue to see Dr. Bains well at [facility] and follow his wound on his right lower extremity. And she will continue to direct antibiotic treatment. Ihave asked that the echocardiogram results be faxed to Dr. Zurita at [facility]. 1. ASCVD Continue ASA, BB and [...] and bone removal by Dr. Aguero at [facility]. Currently receiving IV antibiotics at [facility] ? Plan: 1. A [...] Dolan MD [facility] [address] [place], [place] [address] (Wo rk) 05/28/2022 Laboratory Appointment Lab 05/28/2022 Office Visit Cardiology Zulma Dolan MD [facility] [place] [address] Liz Poole PA [facility] [place] [address] 06/10/2022 Office Visit Dermatology Laura Scherer MD [facility] DR [address] [place], [place] [address] (Wo rk) documented as of this encounter Results (ABNORMAL) Basic Metabolic Panel (non-fasting) (10/07/2017 8:48 AM EDT) athologist Signature Glucose Lvl 99 65 - [address] [facility] mg/dL [facility] LABORATORY [...] or in patients with acute kidney failure. http://[employer].Inkventors/DHnkdep http://[employer]/DHMCnkf Specimen Anatomical Collection Method Collection Time Receive d Time (Source) Location / / Volume Laterality Blood specimen 10/07/2017 8:48 AM 018 8:50 (specimen) EDT AM EDT Resulting Agency Comment Spec In Lab Danette Maxwell APRN CHEMISTRY ORDERABLES Performing Organization Address City/State/[place] [address] (ABNORMAL) pro-Brain Natriuretic Peptide (10/07/2017 8:48 AM EDT) P athologist Signature ProBNP 1,170 (H) <=125 [facility] pg/mL [facility] LABORATORY Specimen Anatomical Collection Method Collection Time Receive d Time (Source) Location / / Volume Laterality Blood specimen 10/07/2017 8:48 AM 018 8:50 (specimen) EDT AM EDT Resulting Agency Comment Spec In Lab Danette Maxwell APRN CHEMISTRY ORDERABLES Performing Organization Address City/State/[place] [address] documented in this encounter Visit Diagnoses Diagnosis Chronic systolic heart failure S/P CABG x 3 Postsurgical aortocoronary bypass status On amiodarone therapy Atrial fibrillation, unspecified type ASCVD (arteriosclerotic cardiovascular d isease) Unspecified cardiovascular disease documented in this encounter Care Teams Master Automotive Technician Relationship Specialty Start Date End Date Lovely Vicente MD PCP - General 04/16/[address] [place] [address] documented as of this encounter
--- OUTSIDE RECORDS SUMMARY | 2022-05-01 08:54 | XMS_ITS | Encounter Summary ---
:1945 Author Organization [facility] [place] [address] Care Team Providers Name Role Phone Lovely Vicente MD Primary Care Provider Encounter Details Date Type Department Care Team Description 10/05/2017 Telephone Cardiology at [facility] Tamiko Sin MD [facility] [place] [address] CARDIOLOGY DEPT [phone] [place], [place] [address] (Wo rk) Social History Tobacco [...] Zulma Dolan MD [facility] er [address] [place] [address] (Wo rk) 05/28/2022 Laboratory Appointment Lab 05/28/2022 Office Visit Cardiology Zulma Dolan MD [facility] [place] [address] [facility] [place] [address] 06/10/2022 Office Visit Dermatology Laura Scherer MD [facility] ER DR [address] [place], [place] [address] (Wo rk) documented as of this encounter Visit Diagnoses Not on filedocumented in this encounter Care Teams Diamond Sizer Relationship Specialty Start Date End Date Lovely Vicente MD PCP - General 04/16/[address] [place] [address] documented as of this encounter
--- OUTSIDE RECORDS SUMMARY | 2022-05-01 08:54 | XMS_ITS | Encounter Summary ---
:1945 Author Organization [facility] [place] [address] Care Team Providers Name Role Phone Lovely Vicente MD Primary Care Provider Encounter Details Date Type Department Care Team Description 08/15/2018 Office Visit Cardiology at [facility] Danette Maxwell Chronic systolic heart failu re; [facility] A, SUPPLY CHAIN DEVELOPMENT MANAGER Cardiomyopathy, ischemic; [facility] ASCVD (arteriosclerotic card iovascular disease); [place], [place] Essential hypertension; [address] CARDIOLOGY MARIA VICTORIA on CPAP [phone] [place], [place] [address] Social History Tobacco Use [...] in this encounter Progress Notes Danette Maxwell, SUPPLY CHAIN DEVELOPMENT MANAGER - 08/15/2018 9:00 AM EST Images [...] K+ 4.6 today 6. Post-op atrial fibrillation [id number] (CHF, HTN, DM, vascular disease, thromboembolism) [...] MD [facility] [address] [place] [address] (Wo rk) 05/28/2022 Laboratory Appointment Lab 05/28/2022 Office Visit Cardiology Zulma Dolan MD [facility] [place] [address] Liz Poole PA [facility] [place] [address] 06/10/2022 Office Visit Dermatology Laura Scherer MD [facility] ER [address] [place], [place] [address] (Wo rk) documented as of this encounter Results Lipid Panel (08/15/2018 8:04 AM EST) athologist Signature Chol, Total 75 mg/dL [facility] Comment: Lower Risk: <200 mg/dL Average Risk: 200-239 mg/dL Higher Risk: >fv=459 mg/dL Triglycerides 185 mg/dL [facility] Comment: Average Risk/Lower Risk: <150 mg/dL Borderline High Risk: 150-199 mg/dL High Risk: 200-499 mg/dL Very High Risk: >kz=501 mg/dL HDL 32 mg/dL [facility] Comment: Males: ?? Higher Risk: <40 mg/dL Females: ?? HIgher Risk: <50 mg/dL LDL Cholesterol 6 mg/dL [facility] Comment: Lowest Risk: <100 mg/dL Lower Risk: 100-129 mg/dL Borderline High Risk: 130-159 mg/dL High Risk: 160-189 mg/dL Very High Risk: >iz=062 mg/dL Chol/HDL Ratio 2.3 ratio [facility] Lipid Interpretation See Note [facility] Comment: Lipid management should be guided by a p atient? s ASCVD risk, goals and preferences. ACC/AHA Guidelines recommend high intens ity statin if clinical ASCVD or LDL greater than or equal to 190 mg/dL. http://AlignMedurl.com/JNP-UXX-Ezcsofury Adults aged 40-75 with LDL 70-189 mg/dL should have their 10 year ASCVD risk estimated with the ACC/AHA ASCVD risk es timator http://tools.acc.org/LXQUX-Rniv-Iaqxvcci r/ Statin should be discussed if risk [...] Organization Address City/State/[place] [address] (ABNORMAL) Basic Metabolic Panel (non-fasting) (08/15/2018 8:04 AM EST) P athologist Signature Glucose Lvl 116 65 - 199 [facility] mg/dL [facility] Comment: [...] of body mass or the acutely ill. http://itembase/[facility] eGFR 79 >=60 mL/min/1.73 m?? [facility] Comment: The eGFR was calculated using the CKD-EP I equation. As with all creatinine based estimates of kidney function, eGFR values calculated with the CKD-EPI equation are not accurate in patients wi th acute kidney failure, extremes of body mass or the acutely ill. http://itembase/[facility]kf Specimen Anatomical Collection Method Collection Time Receive d Time (Source) Location / / Volume Laterality Blood specimen 08/15/2018 8:04 AM 019 8:20 (specimen) EST AM EST Resulting Agency Comment Spec In Lab Danette Maxwell APRN CHEMISTRY ORDERABLES Performing Organization Address City/State/ZIP Code Phon e Number [address] (ABNORMAL) pro-Brain Natriuretic Peptide (08/15/2018 8:04 AM EST) P athologist Signature ProBNP 1,797 (H) <=125 [facility] pg/mL [facility] Specimen Anatomical Collection Method Collection Time Receive d Time (Source) Location / / Volume Laterality Blood specimen 08/15/2018 8:04 AM 019 8:20 (specimen) EST AM EST Resulting Agency Comment Spec In Lab Danette Maxwell APRN CHEMISTRY ORDERABLES Performing Organization Address City/State/[place] [address] documented in this encounter Visit Diagnoses Diagnosis Chronic systolic heart failure Cardiomyopathy, ischemic Other specified forms of chronic ischemi c heart disease ASCVD (arteriosclerotic cardiovascular d isease) Unspecified cardiovascular disease Essential hypertension Unspecified essential hypertension MARIA VICTORIA on CPAP Obstructive sleep apnea (adult) (pediatr ic) documented in this encounter Care Teams Relocation Services Specialist Relationship Specialty Start Date End Date Lovely Vicente MD PCP - General 04/16/15 [address] [place] [address] documented as of this encounter
--- OUTSIDE RECORDS SUMMARY | 2022-05-01 08:54 | XMS_ITS | Encounter Summary ---
:1945 Author Organization [facility] [place] [address] Care Team Providers Name Role Phone Lovely Vicente MD Primary Care Provider Encounter Details Date Type Department Care Team Description 11/29/2017 Laboratory Lab 3L [place] Chronic systoli c congestive heart failure; Appointment [facility] ASCVD (ar teriosclerotic cardiovascular disease); Hospital Cardiomyopathy, [place] [address] Social History Tobacco Use Types [...] Dolan MD [facility] er [place], [place] [address] (Wo rk) 05/28/2022 Laboratory Appointment Lab 05/28/2022 Office Visit Cardiology Zulma Dolan MD [facility] [place] [address] Liz Poole PA [facility] [place] [address] 06/10/2022 Office Visit Dermatology Laura Scherer MD [facility] ER [address] [place], [place] [address] (Wo rk) documented as [...] 12.5 [facility] LABORATORY INR 2.1 [facility] LABORATORY [...] Organization Address City/State/[place] [address] (ABNORMAL) Basic Metabolic Panel (non-fasting) (11/29/2017 8:22 AM EDT) P athologist Signature Glucose Lvl 217 (H) 65 - 199 [facility] mg/dL [facility] LABORATORY [...] [facility] Estimated GFR >60 >=60 [facility] Comment: The reported eGFR should be multiplied b y 1.2 for patients. The MDRD is not an appropriate measure o f renal function for patients with body mass extremes or in patients with acute kidney failure. http://AcademixDirect.ContestMachine/DHnkdep http://HiWired/DHMCnkf Specimen Anatomical Collection Method Collection Time Receive d Time (Source) Location / / Volume Laterality Blood specimen 11/29/2017 8:22 AM 018 8:29 (specimen) EDT AM EDT Resulting Agency Comment Spec In Lab Danette Maxwell APRN CHEMISTRY ORDERABLES Performing Organization Address City/State/[place] [address] (ABNORMAL) pro-Brain Natriuretic Peptide (11/29/2017 8:22 AM EDT) P athologist Signature ProBNP 1,769 (H) <=125 [facility] pg/mL [facility] LABORATORY Specimen Anatomical Collection Method Collection Time Receive d Time (Source) Location / / Volume Laterality Blood specimen 11/29/2017 8:22 AM 018 8:29 (specimen) EDT AM EDT Resulting Agency Comment Spec In Lab Danette Maxwell APRN CHEMISTRY ORDERABLES Performing Organization Address City/State/ZIP Code Phon e Number [address] Lavender Tube HOLD (11/29/2017 8:14 AM EDT) Patholo gist Method Time Signature Lavender Hold Sample in [facility] lab. [facility] LABOR[facility]ORY Specimen Anatomical Collection Method Collection Time Receive d Time (Source) Location / / Volume Laterality Blood specimen No Charge / 11/29/2017 8:14 AM 018 8:29 (specimen) Unknown EDT AM EDT Lovely Vicente MD HEMATOLOGY ORDERABLES Performing Organization Address City/State/[place] [address] documented in this encounter Visit Diagnoses Diagnosis Chronic systolic congestive heart failur e Chronic systolic heart failure ASCVD (arteriosclerotic cardiovascular d isease) Unspecified cardiovascular disease Cardiomyopathy, ischemic Other specified forms of chronic ischemi c heart disease documented in this encounter Care Teams Director Of Broadcast Relationship Specialty Start Date End Date Lovely Vicente MD PCP - General 04/16/[address] [place] [address] documented as of this encounter
--- OUTSIDE RECORDS SUMMARY | 2022-05-01 08:54 | XMS_ITS | Encounter Summary ---
:1945 Author Organization [facility] [place] [address] Care Team Providers Name Role Phone Lovely Vicente MD Primary Care Provider Reason for Visit Reason Onset Date Comments Follow-up 07/13/2018 amiodarone discontin ued Encounter Details Date Type Department Care Team Description 07/13/2018 Telephone Cardiology at [facility] Martha Comer, Follow-up (amiodarone [facility] RN discontin [place]ed) [place] [address] Social History Tobacco Use Types Packs/Day [...] RN - 07/13/2018 8:57 AM EST Per EMERGENCY MANAGEMENT PROGRAM SPECIALIST Hans call placed to the home [...] with any questions. Call placed to the [facility] pharmacy in [place] to discontinue it there as well. Med list updated. documented in this encounter Plan of Treatment Upcoming Encounters Date Type Specialty Care Team Description 05/28/2022 Appointment Cardiology Zulma Dolan MD [facility] [address] [place], [place] [address] (Wo rk) 05/28/2022 Laboratory Appointment Lab 05/28/2022 Office Visit Cardiology Zulma Dolan MD [facility] [place] [address] Liz Poole PA [facility] [place] [address] 06/10/2022 Office Visit Dermatology Laura Scherer MD [facility] [address] [place], [place] [address] (Wo rk) documented as of this encounter Visit Diagnoses Not on filedocumented in this encounter Care Teams Database Tester Relationship Specialty Start Date End Date Lovely Vicente MD PCP - General 04/16/[address] [place] [address] documented as of this encounter
--- OUTSIDE RECORDS SUMMARY | 2022-05-01 08:54 | XMS_ITS | Encounter Summary ---
:1945 [place] [address] Care Team Providers Name Role Phone Lovely Vicente MD Primary Care Provider Encounter Details Date Type Department Care Team Description 08/15/2018 Laboratory Appointment Lab 3L [facility] [place] [address] Social History Tobacco Use Types Packs/Day [...] MD [facility] er [address] [place], [place] [address] (Wo rk) 05/28/2022 Laboratory Appointment Lab 05/28/2022 Office Visit Cardiology Zulma Dolan [place] [address] Liz Poole PA [facility] [place] [address] 06/10/2022 Office Visit Dermatology Laura Scherer MD [facility] ER [address] [place], [place] [address] (Wo rk) documented as of this encounter Procedures Procedure Name Priority Date/Time Associated Diagnosis Comme nts PROTHROMBIN TIME Routine 08/15/2018 8:04 AM Resul ts for this EST procedure are i n the results section. documented in this encounter Results (ABNORMAL) Prothrombin Time (08/15/2018 8:04 AM EST) P athologist Signature PT 24.0 (H) 9.4 - 12.5 [facility] LABORATORY INR 2.1 [facility] LABORATORY [...] City/State/Z[place] [address] documented in this encounter Visit Diagnoses Not on filedocumented in this encounter Care Teams Corduroy Brusher Operator Relationship Specialty Start Date End Date Lovely Vicente MD PCP - General 04/16/[address] [place] [address] documented as of this encounter
--- OUTSIDE RECORDS SUMMARY | 2022-05-01 08:54 | XMS_ITS | Encounter Summary ---
:1945 Author Organization [facility] [place] [address] Care Team Providers Name Role Phone Lovely Vicente MD Primary Care Provider Reason for Referral Diagnostic Test (Routine) - Specialty Diagnoses / Procedures Referred By Contact Refer red To Contact Cardiology Diagnoses Chronic systolic heart failure Danette Maxwell APRN [facility] Non-Inv Card Lab Procedures Echocardiogram Transthoracic(Leb) [facility] [address] [place] [phone] [place] [address] Referral ID Status Reason Start Date Expiration Visits Visits Date Requested Authorized [id number] Specialty 08/15/2018 08/15/2018 1 1 Service Requested Reason for Visit Diagnostic Test (Routine) - Specialty Diagnoses / Procedures Referred By Contact Nawaf owen To Contact Cardiology Diagnoses Chronic systolic heart failure Danette Maxwell APRN [facility] Non-Inv Card Lab Procedures Echocardiogram Transthoracic(Leb) [facility] [place] [address] [place] [address] Referral ID Status Reason Start Date Expiration Visits Visits Date Requested Authorized [id number] Specialty 08/15/2018 08/15/2018 1 1 Service Requested Encounter Details Date Type Department Care Team Description 08/15/2018 Hospital Encounter Non-Invasive Danette Maxwell Chron ic systolic Cardiology Lab Barbara Gomes APRN heart failure [facility] [place] [address] [place], [place] [phone] (Work) [phone] Social History Tobacco Use Types Packs/Day Years [...] 500 mg daily. Winter months Tablet only documented as of this encounter Plan of Treatment Upcoming Encounters Date Type Specialty Care Team Description 05/28/2022 Appointment Cardiology Zulma Dolan MD [facility] [place], [place] [address] (Wo rk) 05/28/2022 Laboratory Appointment Lab 05/28/2022 Office Visit Cardiology Zulma Dolan MD [facility] [place] [address] Liz Poole PA [facility] [place] [address] 06/10/2022 Office Visit Dermatology aLura Scherer MD [facility] DR [address] [place], [place] [address] (Wo rk) documented as of [...] Mccollum ? (Age): 1945(73y) Med Rec#: ? [id number] ?Sex: ?M ? Site Loc: ? [facility] ?Ht / Wt: ??172(cm)/81(kg) Pt. Loc: ?Echo Lab ?BSA: ?1.94 Study Date: ?? 08/15/2018 ?Pt. Type: Outpatient Tape: ? Referring: MARY ELLEN Reading: Scott Ortega ([id number]) Sales Representative Aircraft: Laura Sargent Diagnosis: *Chronic systolic (congestive) heart [...] E-wave Vmax ?1.2 ?m/sec ? MV deceleration eblv706.4 ? msec ? MV A-wave Vmax ?0.7 [...] ? Mid-Inferior ?Hypokinetic ? Mid-Inferoseptal ?Hypokinetic ? [place]-Septal ? Akinetic ? [place]-Anterior ? Hypokinetic ? [place]-Lateral ?Akinetic ? [place]-Inferior ? Hypokinetic ? [place]-Tip ?Akinetic ? This report has been electronically sign ed by: _ Scott Ortega M.D. ? 08/15/2018 08:17:26 Images reviewed and interpretation ver ied [facility] Cardiac Ultrasound Laboratory Procedure Note Scott Ortega MD - 08/15/2018Format ting of this note might be different from the original. Procedure: Transthoracic Echocardiogram Patient: NATALYA MCBRIDE(Age): [birth year]73y) Med Rec#: [id number] Sex: M Site Loc: [facility] Ht / Wt: 172(cm)/81(kg) Pt. Loc: Echo Lab BSA: 1.94 Study Date: 08/15/2018 Pt. Type: Outpati ent Tape: Referring: MARY ELLEN Reading: Scott Ortega ([id number]) Sales Representative Aircraft: Laura Sargent Diagnosis: *Chronic systolic (congestive) heart [...] MV E-wave Vmax 1.2 m/sec MV deceleration rnmw105.4 msec MV A-wave Vmax 0.7 m/sec MV [...] Akinetic Mid-Posterolateral Akinetic Mid-Inferior Hypokinetic Mid-Inferoseptal Hypokinetic [place]-Septal Akinetic [place]-Anterior Hypokinetic [place]-Lateral Akinetic [place]-Inferior Hypokinetic [place]-Tip Akinetic This report has been electronically sign ed by: _ Scott Ortega M.D. 08/15/2018 08:17: 26 Images reviewed and interpretation verif ied [facility] Cardiac Ultrasound Laboratory Danette A Hans [employer] ECHO ORDERABLES documented in this encounter Visit [...] Routine documented in this encounter Care Teams Station Tender Relationship Specialty Start Date End Date Lovely Vicente MD PCP - General 04/16/[address] [place] [address] documented as of this encounter
--- OUTSIDE RECORDS SUMMARY | 2022-05-01 08:54 | XMS_ITS | Encounter Summary ---
:1945 Author Organization [facility] [place] [address] Care Team Providers Name Role Phone Lovely Vicente MD Primary Care Provider Reason for Referral Diagnostic Test (Routine) - Closed Specialty Diagnoses / Procedures Referred By Contact Refer red To Contact Cardiology Diagnoses Ischemic cardiomyopathy Acute on chronic systolic congestive heart failure Danette Maxwell APRN [facility] Non-Inv Card Lab Procedures Echocardiogram Transthoracic(Leb) [facility] [place] [address] [place] [address] Referral ID Status Reason Start Date Expiration Date Visits V isits Requested Authorized [id number] Closed Specialty 08/30/2017 08/30/2018 1 1 Service Requested Reason for Visit Diagnostic Test (Routine) - Closed Specialty Diagnoses / Procedures Referred By Contact Refer red To Contact Cardiology Diagnoses Ischemic cardiomyopathy Acute on chronic systolic congestive heart failure Danette Maxwell APRN [facility] Non-Inv Card Lab Procedures Echocardiogram Transthoracic(Leb) [facility] [place] [address] [place] [address] Referral ID Status Reason Start Date Expiration Date Visits V isits Requested Authorized [id number] Closed Specialty 08/30/2017 08/30/2018 1 1 Service Requested Encounter Details Date Type Department Care Team Description 10/07/2017 Hospital Encounter Non-Invasive Ischemic cardiomyopathy; Cardiology Lab Barbara Craig on chronic systolic [place] [address] Social History Tobacco Use Types Packs/Day [...] Appointment Cardiology Zulma Dolan MD [facility] [address] [place], [place] [address] (Wo rk) 05/28/2022 Laboratory Appointment Lab 05/28/2022 Office Visit Cardiology Zulma Dolan [place] [address] Liz Poole PA [facility] [place] [address] 06/10/2022 Office Visit Dermatology Laura Scherer MD [facility] [address] [place], [place] [address] (Wo rk) documented as [...] Mccollum ? (Age): 1945(72y) Med Rec#: ? [id number] ?Sex: ?M ? [place] Loc: ? [facility] ?Ht / Wt: ??173(cm)/82(kg) Pt. Loc: ?Echo Lab ?BSA: ?1.96 Study Date: ?? 10/07/2017 ?Pt. Type: Outpatient Tape: ? Referring: Danette Maxwell Reading: Iker Cuevas ([id number]) Information Systems Project Manager: Yonathan Bocanegra Diagnosis: *ICD-10-PCS Ischemic cardiomyopathy [...] E-wave Vmax ?1.2 ?m/sec ? MV deceleration [id number] ?msec ? MV A-wave Vmax ?1 ?m/sec [...] ? Mid-Inferior ?Hypokinetic ? Mid-Inferoseptal ?Hypokinetic ? [place]-Septal ? Akinetic ? [place]-Anterior ? Hypokinetic ? [place]-Lateral ?Hypokinetic ? [place]-Inferior ? Hypokinetic ? [place]-Tip ?Akinetic ? This report has been electronically sign ed by: _ Iker Cuevas M.D. ? 10/07/2017 11:12:34 Images reviewed and interpretation verif ied [facility] Cardiac Ultrasound Laboratory Procedure Note Iker Cuevas MD - 10/07/2017Formatti ng of this note might be different from the original. Procedure: Transthoracic Echocardiogram Patient: NATALYA MCBRIDE(Age): [birth year]72y) Med Rec#: [id number] Sex: M Site Loc: [facility] Ht / Wt: 173(cm)/82(kg) Pt. Loc: Echo Lab BSA: 1.96 Study Date: 10/07/2017 Pt. Type: Outpati ent Tape: Referring: Danette Maxwell Reading: Iker Cuevas ([id number]) Information Systems Project Manager: Yonathan Bocanegra Diagnosis: *ICD-10-PCS Ischemic cardiomyopathy [...] MV E-wave Vmax 1.2 m/sec MV deceleration [id number] msec MV A-wave Vmax 1 m/sec MV [...] Akinetic Mid-Posterolateral Hypokinetic Mid-Inferior Hypokinetic Mid-Inferoseptal Hypokinetic [place]-Septal Akinetic [place]-Anterior Hypokinetic [place]-Lateral Hypokinetic [place]-Inferior Hypokinetic [place]-Tip Akinetic This report has been electronically sign ed by: _ Iker Cuevas M.D. 10/07/2017 11:12 :34 Images reviewed and interpretation elvie hwang [facility] Cardiac Ultrasound Laboratory Danette Maxwell [...] documented in this encounter Care Teams Manager Drug Safety Relationship Specialty Start Date End Date Lovely Vicente MD PCP - General 04/16/[address] [place] [address] documented as of this encounter
--- OUTSIDE RECORDS SUMMARY | 2022-05-01 08:54 | XMS_ITS | Encounter Summary ---
:1945 Author Organization [facility] [place] [address] Care Team Providers Name Role Phone Lovely Vicente MD Primary Care Provider Encounter Details Date Type Department Care Team Description 08/15/2018 Laboratory Lab 3L [place] Chronic systoli c heart failure; Appointment [facility] ASCVD (ar teriosclerotic cardiovascular disease) [place] [address] Social History Tobacco Use Types [...] Dolan MD [facility] [place] [address] [place], [place] [address] (Wo rk) 05/28/2022 Laboratory Appointment Lab 05/28/2022 Office Visit Cardiology Zulma Dolan MD [facility] [place] [address] [facility] [place] [address] 06/10/2022 Office Visit Dermatology Laura Scherer MD [facility] ER [address] [place], [place] [address] (Wo rk) documented as of [...] Signature Glucose Lvl 116 65 - 199 [facility] mg/dL [facility]OR[facility] Comment: Diabetes: [...] of body mass or the acutely ill. http://Material Mix/[facility] eGFR 79 >=60 mL/min/1.73 m?? [facility] Comment: The eGFR was calculated using the CKD-EP I equation. As with all creatinine based estimates of kidney function, eGFR values calculated with the CKD-EPI equation are not accurate in patients wi th acute kidney failure, extremes of body mass or the acutely ill. http://Material Mix/[facility] Specimen Anatomical Collection Method Collection Time Receive d Time (Source) Location / / Volume Laterality Blood specimen 08/15/2018 8:04 AM 019 8:20 (specimen) EST AM EST Resulting Agency Comment Spec In Lab Danette Maxwell APRN CHEMISTRY ORDERABLES Performing Organization Address City/State/[place] [address] Lipid Panel (08/15/2018 8:04 AM EST) P athologist Signature Chol, Total 75 mg/dL [facility] Comment: Lower Risk: <200 mg/dL Average Risk: 200-239 mg/dL Higher Risk: >pl=776 mg/dL Triglycerides 185 mg/dL [facility] Comment: Average Risk/Lower Risk: <150 mg/dL Borderline High Risk: 150-199 mg/dL High Risk: 200-499 mg/dL Very High Risk: >ks=532 mg/dL HDL 32 mg/dL [facility] Comment: Males: ?? Higher Risk: <40 mg/dL Females: ?? HIgher Risk: <50 mg/dL LDL Cholesterol 6 mg/dL [facility] Comment: Lowest Risk: <100 mg/dL Lower Risk: 100-129 mg/dL Borderline High Risk: 130-159 mg/dL High Risk: 160-189 mg/dL Very High Risk: >lr=539 mg/dL Chol/HDL Ratio 2.3 ratio [facility] Lipid Interpretation See Note [facility] Comment: Lipid management should be guided by a p atient? s ASCVD risk, goals and preferences. ACC/AHA Guidelines recommend high intens ity statin if clinical ASCVD or LDL greater than or equal to 190 mg/dL. http://Trusera.com/BUA-WKN-Gibhgnpax Adults aged 40-75 with LDL 70-189 mg/dL should have their 10 year ASCVD risk estimated with the ACC/AHA ASCVD risk es timator http://tools.acc.org/WDLIB-Mixg-Vuquqjxn r/ Statin should be discussed if risk [...] Organization Address City/State/[place] [address] (ABNORMAL) pro-Brain Natriuretic Peptide (08/15/2018 8:04 AM EST) athologist Signature ProBNP 1,797 (H) <=125 [facility] pg/mL [facility] Specimen Anatomical Collection Method Collection Time Receive d Time (Source) Location / / Volume Laterality Blood specimen 08/15/2018 8:04 AM 019 8:20 (specimen) EST AM EST Resulting Agency Comment Spec In Lab Danette Maxwell APRN CHEMISTRY ORDERABLES Performing Organization Address City/State/[place] [address] documented in this encounter Visit Diagnoses Diagnosis Chronic systolic heart failure ASCVD (arteriosclerotic cardiovascular d isease) Unspecified cardiovascular disease documented in this encounter Care Teams Senior Staff Accountant Relationship Specialty Start Date End Date Lovely Vicente MD PCP - General 04/16/[address] [place] [address] documented as of this encounter
--- OUTSIDE RECORDS SUMMARY | 2022-05-01 08:54 | XMS_ITS | Encounter Summary ---
:1945 Author Organization [place] [address] Care Team Providers Name Role Phone Lovely Vicente MD Primary Care Provider Reason for Visit Reason Onset Date Comments VNA Calls 08/30/2017 Encounter Details Date Type Department Care Team Description 08/30/2017 Telephone Vascular Surgery at [facility] Cora Reid RN VNA Calls [facility] [place] [address] Social History Tobacco Use Types Packs/Day [...] EST Caller: Alfonso at [facility] [phone] Reason for call: Changing his wound vac [...] Alfonso who had been in contact with [facility]'s Wound Care Nurse who advised him [...] Zulma Dolan MD [facility] [address] [place], [place] [address] (Wo rk) 05/28/2022 Laboratory Appointment Lab 05/28/2022 Office Visit Cardiology Zulma Dolan MD [facility] [place] [address] Liz Poole PA [facility] [place] [address] 06/10/2022 Office Visit Dermatology Laura Scherer MD [facility] DR [address] [place], [place] [address] (Wo rk) documented as of this encounter Visit Diagnoses Not on filedocumented in this encounter Care Teams Meat Hanger Relationship Specialty Start Date End Date Lovely Vicente MD PCP - General 04/16/[address] [place] [address] documented as of this encounter
--- OUTSIDE RECORDS SUMMARY | 2022-05-01 08:54 | XMS_ITS | Encounter Summary ---
:1945 Author Organization [facility] [place] [place] [address] Care Team Providers Name Role Phone Lovely Vicente MD Primary Care Provider Encounter Details Date Type Department Care Team Description 09/03/2017 Telephone Vascular Surgery at [facility] Ninfa Clark, [place] [address] Social History Tobacco Use Types Packs/Day [...] help with the discomfort of the change. Hardwood Floor Sander told the VNA that I would ask [...] Zulma Dolan MD [facility] [place], [place] [address] (Wo rk) 05/28/2022 Laboratory Appointment Lab 05/28/2022 Office Visit Cardiology Zulma Dolan MD [facility] [place] [id number] [facility] [place] [address] 06/10/2022 Office Visit Dermatology Laura Scherer MD [facility] [address] [place], [place] [address] (Wo rk) documented as of this encounter Visit Diagnoses Not on filedocumented in this encounter Care Teams Modeling Instructor Relationship Specialty Start Date End Date Lovely Vicente MD PCP - General 04/16/[address] [place] [address] [address] [facility] [address] [place] [address] documented as of this encounter
--- OUTSIDE RECORDS SUMMARY | 2022-05-01 08:54 | XMS_ITS | Encounter Summary ---
:1945 Author Organization [facility] [place] [address] Care Team Providers Name Role Phone Lovely Vicente MD Primary Care Provider Encounter Details Date Type Department Care Team Description 09/06/2017 Telephone Vascular Surgery at [facility] Ninfa Clark, [place] [address] Social History Tobacco Use Types Packs/Day [...] Dolan MD [facility] [place], [place] [address] (Wo rk) 05/28/2022 Laboratory Appointment Lab 05/28/2022 Office Visit Cardiology Zulma Dolan MD [facility] [place] [address] Liz Poole PA [facility] [place] [address] 06/10/2022 Office Visit Dermatology Laura Scherer MD [facility] [address] [place], [place] [address] (Wo rk) documented as of this encounter Visit Diagnoses Not on filedocumented in this encounter Care Teams Chief Engineering Division Relationship Specialty Start Date End Date Lovely Vicente MD PCP - General 04/16/[address] [place] [address] documented as of this encounter
--- OUTSIDE RECORDS SUMMARY | 2022-05-01 08:54 | XMS_ITS | Encounter Summary ---
:1945 [place] [address] Care Team Providers Name Role Phone Lovely Vicente MD Primary Care Provider Encounter Details Date Type Department Care Team Description 11/29/2017 Hospital Encounter Radiology Library at [facility] RADIO TIME SALESPERSON [facility] [place] [address] CARDIOLOGY [phone] [place], [place] [address] (Wo rk) Social History [...] Zulma Dolan MD [facility] [place], [place] [address] (Wo rk) 05/28/2022 Laboratory Appointment Lab 05/28/2022 Office Visit Cardiology Zulma Dolan MD [facility] [place] [address] Liz Poole PA [facility] [place] [address] 06/10/2022 Office Visit Dermatology Laura Scherer MD [facility] DR [address] [place], [place] [address] (Wo rk) documented [...] City/State/ZIP Code Phon e Number [place], [place] documented in this encounter Visit Diagnoses Diagnosis Pain Generalized pain documented in this encounter Care Teams Processing Assistant Relationship Specialty Start Date End Date Lovely Vicente MD PCP - General 04/16/[address] [place] [address] documented as of this encounter
--- OUTSIDE RECORDS SUMMARY | 2022-05-01 08:54 | XMS_ITS | Encounter Summary ---
:1945 Author Organization [facility] [place] [address] Care Team Providers Name Role Phone Lovely Vicente MD Primary Care Provider Reason for Visit Reason Comments Follow-up Skin Check Encounter Details Date Type Department Care Team Description 01/06/2018 Office Visit Dermatology at [facility] nevi; Abdelrahman HOOPER MD History of melanoma; [address] [facility] Se[place] [address] [facility] [place], [place] [address] Social History Tobacco Use Types [...] Zulma Dolan MD [facility] Dr [place], [place] [address] (Wo rk) 05/28/2022 Laboratory Appointment Lab 05/28/2022 Office Visit Cardiology Zulma Dolan MD [facility] [place] [address] Liz Poole PA [facility] [place] [address] 06/10/2022 Office Visit Dermatology Laura Scherer MD [facility] [address] [place], [place] [address] (Wo rk) documented as of this encounter Visit Diagnoses Diagnosis Multiple nevi Benign neoplasm of skin, site unspecifie d History of melanoma Personal history of malignant melanoma o f skin Seborrheic keratosis Other seborrheic keratosis documented in this encounter Care Teams Technologies Division Chair Relationship Specialty Start Date End Date Lovely Vicente MD PCP - General 04/16/[address] [place] [address] documented as of this encounter
--- OUTSIDE RECORDS SUMMARY | 2022-05-01 08:54 | XMS_ITS | Encounter Summary ---
:1945 Author Organization [facility] [address] Care Team Providers Name Role Phone Lovely Vicente MD Primary Care Provider Encounter Details Date Type Department Care Team Description 10/07/2017 Laboratory Appointment Lab 3L [facility] [place] [phone] Social History Tobacco Use Types Packs/Day Years [...] Dolan MD [facility] er [place], [place] [address] (Wo rk) 05/28/2022 Laboratory Appointment Lab 05/28/2022 Office Visit Cardiology Zulma Dolan MD [facility] [place] [address] Liz Poole PA [facility] [place] [address] 06/10/2022 Office Visit Dermatology Laura Scherer MD [facility] ER DR TEJA GR-DERMAT ENIDReal [facility] [place] Amy (Wo rk) documented as of [...] Signature Glucose Lvl 99 65 - 199 [facility] mg/dL [facility] LABORATORY [...] or in patients with acute kidney failure. [email or web address] Specimen Anatomical Collection Method Collection Time Receive d Time (Source) Location / / Volume Laterality Blood specimen 10/07/2017 8:48 AM 018 8:50 (specimen) EDT AM EDT Resulting Agency Comment Spec In Lab Danette Maxwell EDGER TAILER CHEMISTRY ORDERABLES Performing Organization Address City/[facility]/ZIP Code Phon e Number [address] (ABNORMAL) pro-Brain Natriuretic Peptide (10/07/2017 8:48 AM EDT) athologist Signature ProBNP 1,170 (H) <=125 [facility] pg/mL [facility] LABORATORY Specimen Anatomical Collection Method Collection Time Receive d Time (Source) Location / / Volume Laterality Blood specimen 10/07/2017 8:48 AM 018 8:50 (specimen) EDT AM EDT Resulting Agency Comment Spec In Lab Danette A Hans QUINONES CHEMISTRY ORDERABLES Performing Organization Address City/State/[place] [address] documented in this encounter Visit Diagnoses Diagnosis Chronic systolic heart failure documented in this encounter Care Teams Sports Clerk Relationship Specialty Start Date End Date Lovely Vicente MD PCP - General 04/16/15 [address] [place] [address] documented as of this encounter
--- OUTSIDE RECORDS SUMMARY | 2022-05-01 08:54 | XMS_ITS | Encounter Summary ---
:1945 Author Organization [facility] [place] [address] Care Team Providers Name Role Phone Lovely Vicente MD Primary Care Provider Encounter Details Date Type Department Care Team Description 08/26/2017 Hospital Encounter Vascular Lab at [facility], Athero embolism of foot, right; [place], [place] Delayed surgi nusrat wound healing, [place] [phone] Social History Tobacco Use Types Packs/Day Years [...] UF MINI 31 gauge x times daily. 10/08 Needle aspirin 81 mg EC Take 81 mg by mouth 0 01/16/2019 tablet daily. meTOPROLOL succinate Take 25 mg by [...] Dolan MD [facility] Dr [place], [place] 0[address] (Wo rk) 05/28/2022 Laboratory Appointment Lab 05/28/2022 Office Visit Cardiology Zulma Dolan MD [facility] [place] [address] Liz Poole PA [facility] [place] [address] 06/10/2022 Office Visit Dermatology Laura Scherer MD [facility] DR TEJA GR-DERMAT [place], [place] 0[address] (Wo rk) documented as [...] Test Analysis Performed At [facility] Range Method Time Signature VB Text Department: Vascular Surgery Lab VASCUBASE Report Patient: [id number] (DON HOANG) CPT: 00455 ICD10: T81.89XA;I75.021 Referring Physician: ELVER BLOOM ?? [...] encounter documented in this encounter Care Teams Hotel Assistant Manager Relationship Specialty Start Date End Date Lovely Vicente MD PCP - General 04/16/[address] [place] [address] documented as of this encounter
--- OUTSIDE RECORDS SUMMARY | 2022-05-01 08:54 | XMS_ITS | Encounter Summary ---
:1945 Author Organization [facility] [place] [address] Care Team Providers Name Role Phone Lovely Vicente MD Primary Care Provider Encounter Details Date Type Department Care Team Description 01/16/2019 Laboratory Appointment Lab 3L [facility] [place] [phone] Social History Tobacco Use Types Packs/Day Years [...] Zulma Dolan MD [facility] er [place], [place] 0[address] (Wo rk) 05/28/2022 Laboratory Appointment Lab 05/28/2022 Office Visit Cardiology Zulma Dolan MD [facility] [place] [address] Liz Poole PA [facility] [place] [address] 06/10/2022 Office Visit Dermatology Laura Scherer MD [facility] ER DR TEJA GR-DERMAT [place], [place] 0[address] (Wo rk) documented as [...] Organization Address City/State/[place] [address] (ABNORMAL) Basic Metabolic Panel (non-fasting) (01/16/2019 7:49 AM EDT) athologist Signature Glucose Lvl 105 65 - 199 [facility] mg/dL [facility] Comment: Diabetes: [...] of body mass or the acutely ill. [email or web address] eGFR 79 >=60 mL/min/1.73 m?? [facility] LAB[facility] Comment: The eGFR was calculated using the CKD-EP I equation. As with all creatinine based estimates of kidney function, eGFR values calculated with the CKD-EPI equation are not accurate in patients wi th acute kidney failure, extremes of body mass or the acutely ill. [email or web address] Specimen Anatomical Collection Method Collection Time Receive d Time (Source) Location / / Volume Laterality Blood specimen 01/16/2019 7:49 AM 019 7:55 (specimen) EDT AM EDT Resulting Agency Comment Spec In Lab Danette Maxwell APRN CHEMISTRY ORDERABLES Performing Organization Address City/State/ZIP [place] [address] documented in this encounter Visit Diagnoses Diagnosis Chronic systolic heart failure documented in this encounter Care Teams Casting Machine Operator Automatic Relationship Specialty Start Date End Date Lovely Vicente MD PCP - General 04/16/[address] [place] [address] documented as of this encounter
--- OUTSIDE RECORDS SUMMARY | 2022-05-01 08:54 | XMS_ITS | Encounter Summary ---
:1945 Author Organization [facility] [place] [address] Care Team Providers Name Role Phone Lovely Vicente MD Primary Care Provider Encounter Details Date Type Department Care Team Description 09/06/2017 Orders Only Vascular Surgery at [facility] Ninfa Clark, [facility] [place] [address] Social History Tobacco Use Types Packs/Day [...] Dolan MD [facility] er [place], [place] [address] (Wo rk) 05/28/2022 Laboratory Appointment Lab 05/28/2022 Office Visit Cardiology Zulma Dolan MD [facility] [place] [address] Liz Poole PA [facility] [place] [address] 06/10/2022 Office Visit Dermatology Laura Scherer MD [facility] [address] TEJA GR-DERMAT [place], [place] [address] (Wo rk) documented as of this encounter Visit Diagnoses Not on filedocumented in this encounter Care Teams Statistical Machine Servicer Relationship Specialty Start Date End Date Lovely Vicente MD PCP - General 04/16/[address] [place] [address] documented as of this encounter
--- OUTSIDE RECORDS SUMMARY | 2022-05-01 08:54 | XMS_ITS | Encounter Summary ---
:1945 Author Organization [facility] [place] [address] Care Team Providers Name Role Phone Lovely Vicente MD Primary Care Provider Encounter Details Date Type Department Care Team Description 10/05/2017 Unscheduled Cardiology at [facility] RONNIE Sin PATIENT NOT SEEN Encounter [facility] Tamiko Martinez MD [facility] [address] CARDIOLOGY DEPT [phone] [place] [address] Social History Tobacco Use Types Packs/Day Years [...] [facility] Dr [place], [place] [address] (Wo rk) 05/28/2022 Laboratory Appointment Lab 05/28/2022 Office Visit Cardiology Zulma Dolan MD [facility] [place] [address] Liz Poole PA [facility] [place] [address] 06/10/2022 Office Visit Dermatology Laura Scherer MD [facility] DR TEJA GR-DERMAT [place], [place] 0[address] (Wo rk) documented as of this encounter Visit Diagnoses Diagnosis DH PATIENT NOT SEEN documented in this encounter Care Teams Mdm Developer Relationship Specialty Start Date End Date Lovely Vicente MD PCP - General 04/16/[address] [place] [address] documented as of this encounter
--- OUTSIDE RECORDS SUMMARY | 2022-05-01 08:54 | XMS_ITS | Encounter Summary ---
:1945 Author Organization [facility] [place] [address] Care Team Providers Name Role Phone Lovely Vicente MD Primary Care Provider Reason for Visit Reason Comments Skin Check Encounter Details Date Type Department Care Team Description 07/06/2018 Office Visit Dermatology at [facility], Rigoberto Yarbrough (actinic keratosis); MD SHAY Quick III (seborrheic keratosis); [address] [facility] History of melanoma; [place] [address] Skin exam for malignant neoplasm [phone] [facility] [place], [place] [address] Social History Tobacco Use [...] Garcia MD Section of Dermatology [facility] documented in this encounter Plan of Treatment Upcoming Encounters Date Type Specialty Care Team Description 05/28/2022 Appointment Cardiology Zulma Dolan MD [facility] Dr [place], [place] [address] (Wo rk) 05/28/2022 Laboratory Appointment Lab 05/28/2022 Office Visit Cardiology Zulma Dolan MD [facility] [place] [address] Liz Poole PA [facility] [place] [address] 06/10/2022 Office Visit Dermatology Laura Scherer MD [facility] DR [address]-DERMAT OLOGY [place], [place] [address] (Wo rk) documented as of this encounter Visit Diagnoses Diagnosis AK (actinic keratosis) Actinic keratosis SK (seborrheic keratosis) Other seborrheic keratosis History of melanoma Personal history of malignant melanoma o f skin Skin exam for malignant neoplasm Screening for malignant neoplasm of the skin documented in this encounter Care Teams [place] Actor Relationship Specialty Start Date End Date Lovely Vicente MD PCP - General 04/16/[address] [place] [address] documented as of this encounter
--- OUTSIDE RECORDS SUMMARY | 2022-05-01 08:54 | XMS_ITS | Encounter Summary ---
:1945 Author Organization [facility] [place] [address] Care Team Providers Name Role Phone Loveyl Vicente MD Primary Care Provider Reason for Visit Reason Onset Date Comments Other 11/11/2017 Please call [facility] Encounter Details Date Type Department Care Team Description 11/11/2017 Telephone Cardiology at [facility] Danette Maxwell, Other (Please call [facility] ) [place] [address] CARDIOLOGY [place], [place] 0[address] (Wo rk) Social History Tobacco [...] Dolan MD [facility] Dr [place], [place] [address] (Wo rk) 05/28/2022 Laboratory Appointment Lab 05/28/2022 Office Visit Cardiology Zulma Dolan [place] [address] Liz Poole PA [facility] [place] [address] 06/10/2022 Office Visit Dermatology Laura Scherer MD [facility] DR [address]-DERMAT [place], [place] [address] (Wo rk) documented as of this encounter Visit Diagnoses Not on filedocumented in this encounter Care Teams Pet Resort Concierge Relationship Specialty Start Date End Date Lovely Vicente MD PCP - General 04/16/15 [facility] [address] [place] [address] documented as of this encounter
--- OUTSIDE RECORDS SUMMARY | 2022-05-01 08:54 | XMS_ITS | Encounter Summary ---
:1945 Author Organization [facility] [place] [address] Care Team Providers Name Role Phone Lovely Vicente MD Primary Care Provider Encounter Details Date Type Department Care Team Description 11/29/2017 Office Visit Cardiology at [facility] Annette Maxwell Chronic systolic congestive heart failure; [facility] A, BAKER CHEF ASCVD (arteriosclerotic cardiovascular d isease); [facility] Cardiomyopathy, ischemic; [place], [place] PAD (peripheral artery disease) [phone] CARDIOLOGY [phone] [place], [place] [address] Social History Tobacco Use [...] in this encounter Progress Notes Annette Maxwell, BAKER CHEF - 11/29/2017 9:20 AM EDT ID and [...] 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 [...] left greater saphenous vein (done at [facility]), debridement of right foot with [...] 10/25/2017: right popliteal-pedal bypass at [facility] ? Plan: 1. A review of [...] Cardiology Zulma Dolan MD [facility] [place], [place] [address] (Wo rk) 05/28/2022 Laboratory Appointment Lab 05/28/2022 Office Visit Cardiology Zulma Dolan MD [facility] [place] [address] Liz Poole PA [facility] [place] [address] 06/10/2022 Office Visit Dermatology Laura Scherer MD [facility] DR TEJA GR-DERMAT [place], [place] 0[address] (Wo rk) documented as of this encounter Results Arterial Duplex Leg, Unil (11/29/2017 10:32 AM EDT) Component Value Ref Test Analysis Performed At [facility] Range Method Time Signature VB Text Department: Vascular Surgery Lab VASCUBASE Report Patient: [id number] (GREGORY HOANG) CPT: 41511 ICD10: I72.4;I73.9 Referring Physician: ANNETTE MAXWELL ?? [...] Glucose Lvl 217 (H) 65 - 199 [facility] mg/dL [facility] [...] or in patients with acute kidney failure. [email or web address] Specimen Anatomical Collection Method Collection Time Receive d Time (Source) Location / / Volume Laterality Blood specimen 11/29/2017 8:22 AM 05/07/2 018 8:29 (specimen) EDT AM EDT Resulting Agency Comment Spec In Lab Annette Maxwell BAKER CHEF CHEMISTRY ORDERABLES Performing Organization Address City/State/[place] [address] (ABNORMAL) pro-Brain Natriuretic Peptide (11/29/2017 8:22 AM EDT) P athologist Signature ProBNP 1,769 (H) <=125 [facility] pg/mL [facility] LABORATORY Specimen Anatomical Collection Method Collection Time Receive d Time (Source) Location / / Volume Laterality Blood specimen 11/29/2017 8:22 AM 018 8:29 (specimen) EDT AM EDT Resulting Agency Comment Spec In Lab Annette Maxwell BAKER CHEF CHEMISTRY ORDERABLES Performing Organization Address City/[facility]/[place] [address] documented in this encounter Visit Diagnoses Diagnosis Chronic systolic congestive heart failur e Chronic systolic heart failure ASCVD (arteriosclerotic cardiovascular d isease) Unspecified cardiovascular disease Cardiomyopathy, ischemic Other specified forms of chronic ischemi c heart disease PAD (peripheral artery disease) Peripheral vascular disease, unspecified documented in this encounter Care Teams Tipple Supervisor Relationship Specialty Start Date End Date Lovely Vicente MD PCP - General 04/16/[address] [place] [address] documented as of this encounter
--- OUTSIDE RECORDS SUMMARY | 2022-05-01 08:54 | XMS_ITS | Encounter Summary ---
:1945 Author Organization [facility] [address] Care Team Providers Name Role Phone Lovely Vicente MD Primary Care Provider Encounter Details Date Type Department Care Team Description 11/29/2017 Hospital Encounter Vascular Lab at Janett Walter PAD (peripheral [facility], RVT artery [facility] [place] [phone] Social History Tobacco Use Types Packs/Day Years [...] MD [facility] Dr [place], [place] [address] (Wo rk) 05/28/2022 Laboratory Appointment Lab 05/28/2022 Office Visit Cardiology Zulma Dolan MD [facility] [place] [address] Liz Poole PA [facility] [place] [address] 06/10/2022 Office Visit Dermatology Laura Scherer MD [facility] DR TEJA GR-DERMAT [place]LOG[place], [place] [address] (Wo rk) documented as of [...] Department: Vascular Surgery Lab VASCUBASE Report Patient: [id number] (DON HOANG) CPT: 69519 ICD10: I72.4;I73.9 Referring Physician: DANETTE MAXWELL ?? [...] documented in this encounter Care Teams Scallop Cutter Machine Relationship Specialty Start Date End Date Lovely Vicente MD PCP - General 04/16/[address] [place], [place] [address]Y [facility] [address] [place] [address] documented as of this encounter
--- OUTSIDE RECORDS SUMMARY | 2022-05-01 08:54 | XMS_ITS | Encounter Summary ---
:1945 Author Organization [facility] [place] [address] Care Team Providers Name Role Phone Lovely Vicente MD Primary Care Provider Encounter Details Date Type Department Care Team Description 04/18/2018 Laboratory Appointment Lab 3L [facility] [place] [phone] Social History Tobacco Use Types Packs/Day Years [...] [facility] er Dr [place], [place] [address] (Wo rk) 05/28/2022 Laboratory Appointment Lab 05/28/2022 Office Visit Cardiology Zulma Dolan MD [place] [address] Liz Poole PA [facility] [place] [address] 06/10/2022 Office Visit Dermatology Laura Scherer MD [facility] ER DR TEJA GR-DERMAT [place], [place] [address] (Wo rk) documented as [...] 8.0 [facility] RYAN gm/dL [facility] LABORATORY Albumin 4.0 3.2 - 5.2 [facility] RYAN gm/dL [facility] LABOR[facility]ORY AST 36 0 - 39 [facility] RYAN unit/L [facility] ALT 27 0 - 55 [place] RYAN unit/L [facility] LABOR[facility]ORY Alk Phos 96 40 - 120 [facility] RYAN unit/L [facility] LABORATORY Total 0.7 0.2 - 1.3 [place] iStoryTime Bilirubin mg/dL [facility] LABORATORY Bili, Direct 0.1 0.0 - 0.3 [facility] RYAN mg/dL [facility] LABORATORY Specimen Anatomical Collection Method Collection Time Receive d Time (Source) Location / / Volume Laterality Blood specimen Venous Draw / 04/18/2018 9:19 AM 2017 9:44 (specimen) Unknown EDT AM EDT Resulting Agency Comment Spec In Lab Danette Maxwell APRN CHEMISTRY ORDERABLES Performing Organization Address City/State/[place] [address] TSH (04/18/2018 9:19 AM EDT) athologist Signature TSH 1.77 0.27 - 4.20 [facility] mlU/ML [facility] LABORATORY Specimen Anatomical Collection Method Collection Time Receive d Time (Source) Location / / Volume Laterality Blood specimen Venous Draw / 04/18/2018 9:19 AM 2017 9:44 (specimen) Unknown EDT AM EDT Resulting Agency Comment Spec In Lab Danette Maxwell APRN CHEMISTRY ORDERABLES Performing Organization Address City/State/[place] [address] (ABNORMAL) Basic Metabolic Panel (non-fasting) (04/18/2018 9:19 AM EDT) athologist Signature Glucose Lvl 167 65 - 199 [facility] mg/dL [facility] LABOR[facility]ORY Comment: Diabetes: >=200 mg/dL plus symp toms BUN 18 10 - 20 mg/dL [facility]OR[facility] Creatinine 1.19 0.80 - 1.50 mg/dL [facility] LABORATORY Sodium 147 (H) 135 - 145 mmol/L [facility] [...] mg/dL [facility] Estimated GFR 61 >=60 mL/min/1.73 m?? [facility] Comment: The eGFR was calculated using the CKD-EP I equation. As with all creatinine based estimates of kidney function, eGFR values calculated with the CKD-EPI equation are not accurate in patients wi th acute kidney failure, extremes of body mass or the acutely ill. [email or web address] eGFR 70 >=60 mL/min/1.73 m?? [facility] Comment: The eGFR was calculated using the CKD-EP I equation. As with all creatinine based estimates of kidney function, eGFR values calculated with the CKD-EPI equation are not accurate in patients wi th acute kidney failure, extremes of body mass or the acutely ill. [email or web address] Specimen Anatomical Collection Method Collection Time Receive d Time (Source) Location / / Volume Laterality Blood specimen 04/18/2018 9:19 AM 018 9:34 (specimen) EDT AM EDT Resulting Agency Comment Spec In Lab Danette Maxwell APRN CHEMISTRY ORDERABLES Performing Organization Address City/[facility]/[place] [address] (ABNORMAL) pro-Brain Natriuretic Peptide (04/18/2018 9:19 AM EDT) P athologist Signature ProBNP 2,199 (H) <=125 [facility] pg/mL [facility] LABOR[facility]ORY Specimen Anatomical Collection Method Collection Time Receive d Time (Source) Location / / Volume Laterality Blood specimen 04/18/2018 9:19 AM 018 9:34 (specimen) EDT AM EDT Resulting Agency Comment Spec In Lab Danette Maxwell APRN CHEMISTRY ORDERABLES Performing Organization Address City/[facility]/[place] [address] documented in this encounter Visit Diagnoses Diagnosis Chronic systolic heart failure documented in this encounter Care Teams Pump Erector Relationship Specialty Start Date End Date Lovely Vicente MD PCP - General 04/16/[address] [place] [address] documented as of this encounter
--- OUTSIDE RECORDS SUMMARY | 2022-05-01 08:54 | XMS_ITS | Encounter Summary ---
:1945 Author Organization [facility] [address] Care Team Providers Name Role Phone Lovely Vicente MD Primary Care Provider Encounter Details Date Type Department Care Team Description 08/30/2017 [facility] ischemia [facility] [place] VASCULAR SURGERY [address] [place] [address] [phone] Social History Tobacco Use Types Packs/Day Years [...] Zulma Dolan MD [facility] Dr [place], [place] [address] (Wo rk) 05/28/2022 Laboratory Appointment Lab 05/28/2022 Office Visit Cardiology Zulma Dolan MD [facility] [place] [address] Liz Poole PA [facility] [place] [address] 06/10/2022 Office Visit Dermatology Laura Scherer MD [facility] DR TEJA GR-DERMAT [place]LOG[place], [place] [address] (Wo rk) documented as of this encounter Visit Diagnoses Diagnosis Critical lower limb ischemia Unspecified circulatory system disorder documented in this encounter Care Teams Logistics Support Relationship Specialty Start Date End Date Lovely Vicente MD PCP - General 04/16/[address] [place] [address] documented as of this encounter
--- OUTSIDE RECORDS SUMMARY | 2022-05-01 08:54 | XMS_ITS | Encounter Summary ---
:1945 Author Organization [facility] [place] [address] Care Team Providers Name Role Phone Lovely Vicente MD Primary Care Provider Encounter Details Date Type Department Care Team Description 09/07/2017 Office Visit Endocrinology at [facility] Maria Ines [facility] [place] [facility] [place] [address] CENTER [phone] ENDOCRINOLOGY DEPT [place], [place] [address] Social History Tobacco Use Types [...] [facility] er Dr [place], [place] [address] (Wo rk) 05/28/2022 Laboratory Appointment Lab 05/28/2022 Office Visit Cardiology Zulma Dolan MD [facility] [place] [address] Liz Poole PA [facility] [place] [address] 06/10/2022 Office Visit Dermatology Laura Scherer MD [facility] ER DR [address] [place], [place] [address] (Wo rk) documented as of this encounter Visit Diagnoses Diagnosis Hx of papillary thyroid carcinoma Personal history of malignant neoplasm o f thyroid documented in this encounter Care Teams Park Naturalist Relationship Specialty Start Date End Date Lovely Vicente MD PCP - General 04/16/15 [facility] [address] [place] [address] documented as of this encounter
--- OUTSIDE RECORDS SUMMARY | 2022-05-01 08:54 | XMS_ITS | Encounter Summary ---
:1945 Author Organization [facility] [place] [address] Care Team Providers Name Role Phone Lovely Vicente MD Primary Care Provider Encounter Details Date Type Department Care Team Description 09/07/2017 Laboratory Appointment Lab 3L [facility] [place] [id number] Social History Tobacco Use Types Packs/Day Years [...] MD [facility] er [place], [place] [address] (Wo rk) 05/28/2022 Laboratory Appointment Lab 05/28/2022 Office Visit Cardiology Zulma Dolan MD [facility] [place] [address] Liz Poole PA [facility] [place] [address] 06/10/2022 Office Visit Dermatology Laura Scherer MD [facility] ER DR [address] [place], [place] 8[address] (Wo rk) documented as of this encounter [...] PM EST) athologist Signature Thyroglobulin 1.4 <=54.9 [facility] ng/mL [facility] [...] Organization Address City/State/[place] [address] TSH (09/07/2017 2:41 PM EST) athologist Signature TSH 3.93 0.27 - 4.20 [facility] Specimen Anatomical Collection Method Collection Time Receive d Time (Source) Location / / Volume Laterality Blood specimen 09/07/2017 2:41 PM 018 2:46 (specimen) EST PM EST Resulting Agency Comment Spec In Lab Luz Prescott MD CHEMISTRY ORDERABLES Performing Organization Address City/State/[place] [address] documented in this encounter Visit Diagnoses Diagnosis Hx of papillary thyroid carcinoma Personal history of malignant neoplasm o f thyroid documented in this encounter Care Teams Deli Slicer Relationship Specialty Start Date End Date Lovely Vicente MD PCP - General 04/16/[address] [place] [address] documented as of this encounter"
--- OUTSIDE RECORDS SUMMARY | 2022-05-01 08:54 | XMS_ITS | Encounter Summary ---
:1945 Author Organization [facility] [address] Care Team Providers Name Role Phone Lovely Vicente MD Primary Care Provider Encounter Details Date Type Department Care Team Description 08/26/2018 Transcribe Orders Laboratory Lovely Vicente, Deferred diagnosis [facility] on axis I [address] [address] [place], [place] [phone] Social History Tobacco Use Types Packs/Day Years [...] Zulma Dolan MD [facility] [address] [place], [place] [address] (Wo rk) 05/28/2022 Laboratory Appointment Lab 05/28/2022 Office Visit Cardiology Zulma Dolan MD [facility] [place] [address] Liz Poole PA [facility] [place] [address] 06/10/2022 Office Visit Dermatology Laura Scherer MD [facility] DR [address] [place], [place] [address] (Wo rk) documented as of this encounter Visit Diagnoses Diagnosis Deferred diagnosis on axis I Other unknown and unspecified cause of m orbidity or mortality documented in this encounter Care Teams Solderer Assembler Relationship Specialty Start Date End Date Lovely Vicente MD PCP - General 04/16/15 [facility] [address] [place] [address] documented as of this encounter
--- OUTSIDE RECORDS SUMMARY | 2022-05-01 08:54 | XMS_ITS | Encounter Summary ---
:1945 Author Organization [facility] [place] [address] Care Team Providers Name Role Phone Lovely Vicente MD Primary Care Provider Reason for Referral Consultation (Routine) - Specialty Diagnoses / Procedures Referred By Contact Refer red To Contact [facility] Diagnoses Atheroembolism of foot, right Delayed surgical wound healing, subsequent encounter Aurelia Rivera PA [address] [facility] [address] Referral ID Status Reason Start Date Expiration Date Visits V isits Requested Authorized [id number] Consult, 09/08/2017 03/07/2018 1 1 Test & Treat Reason for Visit Reason Comments Wound Check My foot hurts Encounter Details Date Type Department Care Team Description 09/07/2017 Office Visit Vascular Surgery at MiguelAurelia PA Atheroembolism of foot, right; [facility] [address] [facility] Delayed surgical wound healing, subseque nt encounter [facility] [place] [address] [phone] Social History Tobacco Use Types Packs/Day Years [...] VAC dressing changes from [facility]. Since his last visit his right forefoot wound [facility] [...] [facility] MAIN OR ??? PRO AMPUTATION FOOT, TRANSMETATARSAL Right 08/09/2017 AMPUTATION, TRANSMETATARSAL (WRVU 12.71) performed by Yonathan Smith MD at [facility] MAIN OR [...] at [facility] ENDOSCOPY ??? PRO DRESSING CHANGE UNDER ANESTHESIA Right 08/11/2017 (MSURG) DRESSING CHANGE (FOR OTHER THAN IVAN) UNDER ANES. (WRVU 0.86) performed by Lamar Smith MD at [facility] MAIN OR ??? PRO ENDOSCOPY W/VIDEO-ASST VEIN HARVEST, CABG Right 07/07/2017 ENDOSCOPIC HARVEST VEIN(S) FOR CABG (WRVU 0.31) performed by Yuan Retana MD at [facility] MAIN OR ??? PRO THYROIDECTOMY 03/28/2013 THYROIDECTOMY, TOTAL OR COMPLETE performed by Manny Mcknight MD at [facility] OR Social Hx: Social History Substance Use [...] Cardiology Zulma Dolan MD [facility] [place], [place] [address] (Wo rk) 05/28/2022 Laboratory Appointment Lab 05/28/2022 Office Visit Cardiology Zulma Dolan MD [facility] [place] [address] Liz Poole PA [facility] [place] [address] 06/10/2022 Office Visit Dermatology Laura Scherer MD [facility] [address] [place], [place] [address] (Wo rk) Scheduled Referrals Name Type Priority Associated Diagnoses Order S chedule Referral to Wound Outpatient Referral Routine Atheroembolism o f foot, Ordered: Clinic right 09/08/2017 Delayed surgical wound healing, subsequent encounter documented as of this encounter Visit Diagnoses Diagnosis Atheroembolism of foot, right Delayed surgical wound healing, subseque nt encounter documented in this encounter Care Teams Water Resources Engineer Relationship Specialty Start Date End Date Lovely Vicente MD PCP - General 04/16/[address] [facility] 1 [place] [address] documented as of this encounter
--- OUTSIDE RECORDS SUMMARY | 2022-05-01 08:54 | XMS_ITS | Encounter Summary ---
:1945 Author Organization [facility] Address [facility] [place] [address] Care Team Providers Name Role Phone Lovely Vicente MD Primary Care Provider Reason for Referral Diagnostic Test (Routine) - Closed Specialty Diagnoses / Procedures Referred By Contact Refer red To Contact Cardiology Diagnoses Chronic systolic heart failure Danette Maxwell APRN [facility] Non-Inv Card Lab Procedures Echocardiogram Transthoracic(Leb) [facility] [place] [address] [place] [address] Referral ID Status Reason Start Date Expiration Date Visits V isits Requested Authorized [id number] Closed Specialty 07/17/2019 09/14/2019 1 1 Service Requested Encounter Details Date Type Department Care Team Description 01/16/2019 Office Visit Cardiology at [facility] Danette Maxwell, Chronic systolic heart failu re; [facility] STACIE Cardiomyopathy, ischemic; Drive [facility] Hx of thyroid cancer; [place], [place] DR ELMORE (arteriosclerotic heart disease); [address] CARDIOLOGY MARIA VICTORIA (obstructive sleep apnea) on CPAP [phone] [place], [place] [address] (Wo rk) Social History Tobacco Use Types [...] K+ 4.6 today 6. Post-op atrial fibrillation [id number] (CHF, HTN, DM, vascular disease, thromboembolism) Amiodarone discontinued Continue coumadin INR managed by PCP. 2.1 today 7. PAD 08/06/2017: Right 1st, 2nd, 3rd toe amputation 08/11/2017: Left??femoral arterial access, RLE??angiogram, Balloon angioplasty of R PT with Eleazar 2.5 x 80 10/25/2017: right popliteal-pedal bypass at [facility] [...] Zulma Dolan MD [facility] [place], [place] [address] (Wo rk) 05/28/2022 Laboratory Appointment Lab 05/28/2022 Office Visit Cardiology Zulma Dolan MD [facility] [place] [address] Liz Poole PA [facility] [place] [address] 06/10/2022 Office Visit Dermatology Laura Scherer MD [facility] DR [address] [place], [place] [address] (Wo rk) documented as of this encounter Results ECHOCARDIOGRAM COMPLETE W CONTRAST (07/28/2019 8:19 AM EST) athologist Signature EF 40 [facility] SYSTEM Anatomical Region Laterality Modality Other Specimen (Source) Anatomical Location Collection Method / Collectio n Time Received Time / Laterality Volume 07/28/2019 Narrative 07/28/2019 8:38 AM EST Procedure: ?Transthoracic Echocardiogram Patient: ?NATALYA Mccollum ? (Age): 1945(74y) Med Rec#: ? [id number] ?Sex: ?M ? Site Loc: ? [facility] ?Ht / Wt: ??172(cm)/81(kg) Pt. Loc: ?Echo Lab ?BSA: ?1.94 Study Date: ?? 07/28/2019 ?Pt. Type: Outpatient Tape: ? Referring: MARY ELLEN Reading: Ifeanyi Truong ([id number]) Line Up Examiner: Fadumo Flanagan RDCS, REGINA Diagnosis: *Chronic systolic [...] E-wave Vmax ?1 ?m/sec ? MV deceleration rpge570.5 ? msec ? MV A-wave Vmax ?1 [...] ? Mid-Inferior ?Hypokinetic ? Mid-Inferoseptal ?Normal ? [place]-Septal ? Normal ? [place]-Anterior ? Hypokinetic ? [place]-Lateral ?Normal ? [place]-Inferior ? Akinetic ? [place]-Tip ?Hypokinetic ? This report has been electronically sign ed by: _ Ifeanyi Truong M.D. ? 07/28/2019 0 8:38:01 Images reviewed and interpretation [facility] Procedure Note Ifeanyi Truong MD - 07/28/2019Formatt ing of this note might be different from the original. Procedure: Transthoracic Echocardiogram Patient: NATALYA MCBRIDE(Age): [birth year]74y) Med Rec#: [id number] Sex: M Site Loc: [facility] Ht / Wt: 172(cm)/81(kg) Pt. Loc: Echo Lab BSA: 1.94 Study Date: 07/28/2019 Pt. Type: Outpati ent Tape: Referring: MARY ELLEN Reading: Ifeanyi Truong ([id number]) Line Up Examiner: Fadumo Flanagan [facility], REGINA Diagnosis: [...] MV E-wave Vmax 1 m/sec MV deceleration xpui617.5 msec MV A-wave Vmax 1 m/sec MV [...] Normal Mid-Posterolateral Normal Mid-Inferior Hypokinetic Mid-Inferoseptal Normal [place]-Septal Normal [place]-Anterior Hypokinetic [place]-Lateral Normal [place]-Inferior Akinetic [place]-Tip Hypokinetic This report has been electronically sign ed by: _ Ifeanyi Truong M.D. 07/28/2019 08:38:0 1 Images reviewed and interpretation verif ied [facility] Cardiac Ultrasound Laboratory Danette Maxwell APRN ECHO ORDERABLES (ABNORMAL) Basic Metabolic Panel (non-fasting) (01/16/2019 7:49 AM EDT) P athologist Signature Glucose Lvl 105 65 - 199 [facility] mg/dL [facility] [...] of body mass or the acutely ill. [email or web address]/Admaticnkf eGFR 79 >=60 mL/min/1.73 m?? [facility] Comment: The eGFR was calculated using the CKD-EP I equation. As with all creatinine based estimates of kidney function, eGFR values calculated with the CKD-EPI equation are not accurate in patients wi th acute kidney failure, extremes of body mass or the acutely ill. http://Pitadela/[facility]ULSAnkf Specimen Anatomical Collection Method Collection Time Receive d Time (Source) Location / / Volume Laterality Blood specimen 01/16/2019 7:49 AM 019 7:55 (specimen) EDT AM EDT Resulting Agency Comment Spec In Lab Danette Maxwell APRN CHEMISTRY ORDERABLES Performing Organization Address City/State/[place] [address] (ABNORMAL) pro-Brain Natriuretic Peptide (01/16/2019 7:49 AM EDT) P athologist Signature ProBNP 780 (H) <=125 pg/mL [facility] Specimen Anatomical Collection Method Collection Time Receive d Time (Source) Location / / Volume Laterality Blood specimen 01/16/2019 7:49 AM 019 7:55 (specimen) EDT AM EDT Resulting Agency Comment Spec In Lab Danette Maxwell SUPERVISOR PIPE MANUFACTURE CHEMISTRY ORDERABLES Performing Organization Address City/State/[place] [address] documented in this encounter Visit Diagnoses Diagnosis Chronic systolic heart failure Cardiomyopathy, ischemic Other specified forms of chronic ischemi c heart disease Hx of thyroid cancer Personal history of malignant neoplasm o f thyroid ASHD (arteriosclerotic heart disease) Coronary atherosclerosis of unspecified type of vessel, [place] or graft MARIA VICTORIA (obstructive sleep apnea) on CPAP Obstructive sleep apnea (adult) (pediatr ic) Chronic systolic heart failure documented in this encounter Care Teams Service Tech/Welder Relationship Specialty Start Date End Date Lovely Vicente MD PCP - General 04/16/[address] [place] [address] documented as of this encounter
--- OUTSIDE RECORDS SUMMARY | 2022-05-01 08:55 | XMS_ITS | Encounter Summary ---
:1945 Author Organization [facility] [place] [address] Care Team Providers Name Role Phone Lovely Vicente MD Primary Care Provider Reason for Visit Reason Comments Follow-up I'm having trouble with the VAC Encounter Details Date Type Department Care Team Description 08/26/2017 Office Visit Vascular Surgery at [facility], STE[place]ANIE Mercado Atheroembolism of foot, right; [facility] [address] Delayed surgical wound healing, initial encounter; [facility] VASCULAR SURG YEHUDA Acute on chronic systolic congestive hea rt failure ; [place], [place] Ischemic [place] [address] [phone] Social History Tobacco Use Types Packs/Day Years [...] and into the care of the [facility]. However, since discharge from [facility] he [...] SETUP performed by Manny Mcknight MD at [facility] MAIN OR ??? PRO AMPUTATION FOOT, TRANSMETATARSAL Right 08/09/2017 AMPUTATION, TRANSMETATARSAL (WRVU 12.71) performed by Yonathan Smith MD at [facility] MAIN OR ??? PRO CABG, ARTERIAL, SINGLE N/A 07/07/2017 @CABG, USING ARTERIAL GRAFT;SINGLE ARTERIAL GRAFT (WRVU 33.75) performed by Yuan Retana MD at [facility] MAIN OR ??? PRO CABG, ARTERY-VEIN, TWO N/A 07/07/2017 @CABG, TWO VENOUS GRAFTS & ARTERIAL GRAFT (WRVU 7.93) performed by Yuan Retana MD at [facility] MAIN OR ??? PRO COLONOSCOPY, REMV LESN, SNARE 01/16/2014 COLONOSCOPY, POLYPECTOMY, REMOVAL LESION BY SNARE performed by Nohemi Jaimes MD at [facility] ENDOSCOPY ??? PRO DRESSING CHANGE UNDER ANESTHESIA Right 08/11/2017 (MSURG) DRESSING CHANGE (FOR OTHER THAN IVAN) UNDER ANES. (WRVU 0.86) performed by Lamar Smith MD at [facility] MAIN OR ??? PRO ENDOSCOPY W/VIDEO-ASST VEIN HARVEST, CABG Right 07/07/2017 ENDOSCOPIC HARVEST VEIN(S) FOR CABG (WRVU 0.31) performed by Yuan Retana MD at [facility] MAIN OR ??? PRO THYROIDECTOMY 03/28/2013 THYROIDECTOMY, TOTAL OR COMPLETE performed by Manny Mcknight MD at [facility] MAIN OR Social Hx: Social History [...] Cardiology Zulma Dolan MD [facility] [place], [place] [address] (Wo rk) 05/28/2022 Laboratory Appointment Lab 05/28/2022 Office Visit Cardiology Zulma Dolan MD [facility] [address] Liz Poole PA [facility] Cardiology [place] [address] 06/10/2022 Office Visit Dermatology Laura Scherer MD [facility] [address] [place], [place] [address] (Wo rk) documented as of [...] Department: Vascular Surgery Lab VASCUBASE Report Patient: [id number] (GREGORY FATIMA) CPT: 09078 ICD10: T81.89XA;I75.021 Referring Physician: ARIK CLEMENT ?? [...] Signature Glucose Lvl 98 65 - 199 [facility] mg/dL [facility] [...] LABORATORY Calcium 9.1 8.5 - 10.5 mg/dL [facility] Estimated GFR >60 >=60 [facility] Comment: The reported eGFR should be multiplied b y 1.2 for patients. The MDRD is not an appropriate measure o f renal function for patients with body mass extremes or in patients with acute kidney failure. http://Neiron/DHnkdep http://Neiron/DHMCnkf Specimen Anatomical Collection Method Collection Time Receive d Time (Source) Location / / Volume Laterality Blood specimen 08/26/2017 2:00 PM 018 2:15 (specimen) EST PM EST Resulting Agency Comment Spec In Lab Danette Maxwell [facility] CHEMISTRY ORDERABLES Performing Organization Address City/[facility]/ZIP Code Phon e Number [address] (ABNORMAL) pro-Brain Natriuretic Peptide (08/26/2017 2:00 PM EST) P athologist Signature ProBNP 2,373 (H) <=125 [facility] pg/mL [facility]ORY Specimen Anatomical Collection Method Collection Time Receive d Time (Source) Location / / Volume Laterality Blood specimen 08/26/2017 2:00 PM 018 2:15 (specimen) EST PM EST Resulting Agency Comment Spec In Lab Danette A [place] STACIE CHEMISTRY ORDERABLES Performing Organization Address City/[facility] [place] [address] documented in this encounter Visit Diagnoses Diagnosis Atheroembolism of foot, right Delayed surgical wound healing, initial encounter Acute on chronic systolic congestive hea rt failure Acute on chronic systolic heart failure Ischemic cardiomyopathy Other specified forms of chronic ischemi c heart disease documented in this encounter Care Teams Glass Technologist Relationship Specialty Start Date End Date Lovely Vicente MD PCP - General 04/16/[address] [place] [address] documented as of this encounter
--- OUTSIDE RECORDS SUMMARY | 2022-05-01 08:55 | XMS_ITS | Encounter Summary ---
:1945 Author Organization [facility] [place] [address] Care Team Providers Name Role Phone Lovely Vicente MD Primary Care Provider Reason for Visit Reason Comments Follow-up Encounter Details Date Type Department Care Team Description 08/19/2017 Office Visit Cardiac Surgery at [facility], Jock S/P C ABG (coronary [facility], artery bypass graft) [facility] [place] CARDIOTHORACIC [address] SURGERY [phone] [place], [place] [address] Social History Tobacco Use Types [...] office. Best personal regards, Yuan Retana MD [phone] documented in this encounter Plan of Treatment Upcoming Encounters Date Type Specialty Care Team Description 05/28/2022 Appointment Cardiology Zulma Dolan MD [facility] er [address] [place] [address] (Wo rk) 05/28/2022 Laboratory Appointment Lab 05/28/2022 Office Visit Cardiology Zulma Dolan MD [facility] [place] [address] Liz Poole PA [facility] [place] [address] 06/10/2022 Office Visit Dermatology Laura Scherer MD [facility] ER DR [address] [place] [address] (Wo rk) documented as of this encounter [...] ms MUSE SYSTEM (Bezet) Calculated P [place] 20 degrees MUSE SYSTEM Calculated R [place] -29 degrees MUSE SYSTEM Calculated T [place] 121 degrees MUSE SYSTEM INTERPRETATION Normal sinus rhythm MUSE SYSTEM Inferior infarct (cited on or before 25-JAN-2013) Anterior 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) T wave abnormality, consider lateral ischemia Abnormal ECG When compared with ECG of 06-AUG-2017 12:37, No signif icant change was found Confirmed by MD Luci, Taurus Braun ([id number]) on 08/19/2017 1 0:37:38 PM Specimen Anatomical [...] status documented in this encounter Care Teams Radiologic Technologist Relationship Specialty Start Date End Date Lovely Vicente MD PCP - General 04/16/[address] [place] [address] documented as of this encounter
--- OUTSIDE RECORDS SUMMARY | 2022-05-01 08:55 | XMS_ITS | Encounter Summary ---
:1945 Author Organization [facility] [place] [address] Care Team Providers Name Role Phone Lovely Vicente MD Primary Care Provider Encounter Details Date Type Department Care Team Description 08/25/2017 Telephone Pain Management at [facility] [place], [place] [address] Social History Tobacco Use Types Packs/Day [...] Management Center Preauthorization Request Patient: Don Fatima [id number] Fax received from [employer] denying prior authorization for Lidocaine Patches prescribed by Barbra Soares APRN. RX insurance plan: [employer] insurance telephone: [phone] Patient Diagnosis: right foot pain secondary to PVD and ischemia ? Previous medications attempted: Tylenol, Tramadol, Dilaudid Authorization/Reference number: [id number] _x_ denied, provider and patient informed _x_ appeal initiated by provider, patient informed Angeles Rodrigez, RN documented in this encounter Plan of Treatment Upcoming Encounters Date Type Specialty Care Team Description 05/28/2022 Appointment Cardiology Zulma Dolan MD [facility] [place], [place] [address] (Wo rk) 05/28/2022 Laboratory Appointment Lab 05/28/2022 Office Visit Cardiology Zulma Dolan MD [facility] [place] [address] Liz Poole PA [facility] [place] [address] 06/10/2022 Office Visit Dermatology Laura Scherer MD [facility] DR [address] [place], [place] [address] (Wo rk) documented as of this encounter Visit Diagnoses Not on filedocumented in this encounter Care Teams Platform Architect Relationship Specialty Start Date End Date Lovely Vicente MD PCP - General 04/16/[address] [place] [address] documented as of this encounter
--- OUTSIDE RECORDS SUMMARY | 2022-05-01 08:55 | XMS_ITS | Encounter Summary ---
:1945 Author Organization [facility] [place] [address] Care Team Providers Name Role Phone Lovely Vicente MD Primary Care Provider Encounter Details Date Type Department Care Team Description 08/19/2017 Office Visit Vascular Surgery at [place], PAD (peripheral artery [facility] STATISTICAL FINANCIAL ANALYST disease) [facility] [address] [place], [place] VASCULAR SURGERY [address] [place] [address] [phone] Social History Tobacco Use Types Packs/Day Years [...] Zulma Dolan MD [facility] [place], [place] [address] (Wo rk) 05/28/2022 Laboratory Appointment Lab 05/28/2022 Office Visit Cardiology Zulma Dolan MD [facility] [place] [address] Liz Poole PA [facility] [place] [address] 06/10/2022 Office Visit Dermatology aLura Scherer MD [facility] [address] [place], [place] [address] (Wo rk) documented as of this encounter Visit Diagnoses Diagnosis PAD (peripheral artery disease) Peripheral vascular disease, unspecified documented in this encounter Care Teams Airplane Mechanic Apprentice Relationship Specialty Start Date End Date Lovely Vicente MD PCP - General 04/16/[address] [place] [address] documented as of this encounter
--- OUTSIDE RECORDS SUMMARY | 2022-05-01 08:55 | XMS_ITS | Encounter Summary ---
:1945 Author Organization [facility] [place] [address] Care Team Providers Name Role Phone Lovely Vicente MD Primary Care Provider Reason for Referral Diagnostic Test (Routine) - Closed Specialty Diagnoses / Procedures Referred By Contact Refer red To Contact Cardiology Diagnoses Ischemic cardiomyopathy Acute on chronic systolic congestive heart failure Danette Maxwell APRN [facility] Non-Inv Card Lab Procedures Echocardiogram Transthoracic(Leb) [facility] [place] [address] [place] [address] Referral ID Status Reason Start Date Expiration Date Visits V isits Requested Authorized [id number] Closed Specialty 08/30/2017 08/30/2018 1 1 Service Requested Encounter Details Date Type Department Care Team Description 08/26/2017 Office Visit Cardiology at [facility] Danette Maxwell Ischemic cardiomyopathy; [facility] STACIE Gomes Acute on chronic systolic congestive hea rt failure ; Drive [facility] ASCVD (arteriosclerotic card iovascular disease); [place], [place] PAF (paroxysmal atrial fibrillation); [id number] CARDIOLOGY PAD (peripheral artery disease) [phone] [place], [place] [address] Social History Tobacco Use Types Packs/Day Years [...] painful and swollen 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 [place], [place] [address] (Wo rk) 05/28/2022 Laboratory Appointment Lab 05/28/2022 Office Visit Cardiology Zulma Dolan MD [facility] [place] [address] Liz Poole PA [facility] [place] [address] 06/10/2022 Office Visit Dermatology Laura Scehrer MD [facility] [address] [place], [place] [address] (Wo rk) documented as of this encounter Results ECHOCARDIOGRAM COMPLETE W CONTRAST (10/07/2017 10:23 AM EDT) athologist Signature EF 45 [facility] Anatomical Region Laterality Modality Other Specimen (Source) Anatomical Location Collection Method / Collectio n Time Received Time / Laterality Volume 10/07/2017 Narrative 10/07/2017 11:13 AM EDT Procedure: ?Transthoracic Echocardiogram Patient: ?NATALYA Mccollum ? (Age): 1945(72y) Med Rec#: ? [id number] ?Sex: ?M ? Site Loc: ? [facility] ?Ht / Wt: ??173(cm)/82(kg) Pt. Loc: ?Echo Lab ?BSA: ?1.96 Study Date: ?? 10/07/2017 ?Pt. Type: Outpatient Tape: ? Referring: Danette Maxwell Reading: Iker Cuevas ([id number]) Dixonac Operator: Yonathan Bocanegra Diagnosis: *ICD-10-PCS Ischemic cardiomyopathy [...] ion. ?There is no evidence of aortic clolette ve stenosis. ?There is no evidence of [...] E-wave Vmax ?1.2 ?m/sec ? MV deceleration [id number] ?msec ? MV A-wave Vmax ?1 ?m/sec [...] ? Mid-Inferior ?Hypokinetic ? Mid-Inferoseptal ?Hypokinetic ? Myton-Septal ? Akinetic ? Myton-Anterior ? Hypokinetic ? Myton-Lateral ?Hypokinetic ? Myton-Inferior ? Hypokinetic ? Myton-Tip ?Akinetic ? This report has been electronically sign ed by: _ Iker Cuevas M.D. ? 10/07/2017 11:12:34 Images reviewed and interpretation [facility] Cardiac Ultrasound Laboratory Procedure Note Iker Cuevas MD - 10/07/2017Formatti ng of this note might be different from the original. Procedure: Transthoracic Echocardiogram Patient: NATALYA Mccollum (Age): [birth year]72y) Med Rec#: [id number] Sex: M Site Loc: [facility] Ht / Wt: 173(cm)/82(kg) Pt. Loc: Echo Lab BSA: 1.96 Study Date: 10/07/2017 Pt. Type: Outpati ent Tape: Referring: Danette Maxwell Reading: Iker Cuevas ([id number]) [employer] Operator: Yonathan Bocanegra Diagnosis: *ICD-10-PCS Ischemic cardiomyopathy [...] MV E-wave Vmax 1.2 m/sec MV deceleration [id number] msec MV A-wave Vmax 1 m/sec MV [...] Akinetic Mid-Posterolateral Hypokinetic Mid-Inferior Hypokinetic Mid-Inferoseptal Hypokinetic Myton-Septal Akinetic Myton-Anterior Hypokinetic Myton-Lateral Hypokinetic Myton-Inferior Hypokinetic Myton-Tip Akinetic This report has been electronically sign ed by: _ Iker Cuevas M.D. 10/07/2017 11:12 :34 Images reviewed and interpretation [facility] Card[facility] Danette Maxwell APRN ECHO ORDERABLES Basic Metabolic Panel (non-fasting) (08/26/2017 2:00 PM EST) P athologist Signature Glucose Lvl 98 65 - 199 [facility] mg/dL [facility] Comment: Diabetes: >=200 [...] or in patients with acute kidney failure. [email or web address] [email or web address] Specimen Anatomical Collection Method Collection Time Receive d Time (Source) Location / / Volume Laterality Blood specimen 08/26/2017 2:00 PM 018 2:15 (specimen) EST PM EST Resulting Agency Comment Spec In Lab Danette Maxwell APRN CHEMISTRY ORDERABLES Performing Organization Address City/State/ZIP Code Phon e Number [address] (ABNORMAL) pro-Brain Natriuretic Peptide (08/26/2017 2:00 PM EST) P athologist Signature ProBNP 2,373 (H) <=125 [facility] RYAN pg/mL [facility] Specimen Anatomical Collection Method Collection Time Receive d Time (Source) Location / / Volume Laterality Blood specimen 08/26/2017 2:00 PM 018 2:15 (specimen) EST PM EST Resulting Agency Comment Spec In Lab Danette Maxwell APRN CHEMISTRY ORDERABLES Performing Organization Address City/State/[place] [address] documented in this encounter [...] failure documented in this encounter Care Teams Associate Professor Of Management Relationship Specialty Start Date End Date Lovely Vicente MD PCP - General 04/16/15 [address] [place] [address] documented as of this encounter
--- OUTSIDE RECORDS SUMMARY | 2022-05-01 08:55 | XMS_ITS | Encounter Summary ---
:1945 Author Organization [facility] [place] [address] Care Team Providers Name Role Phone Lovely Vicente MD Primary Care Provider Encounter Details Date Type Department Care Team Description 08/19/2017 Hospital Encounter XRay at [facility] Martha Teague, S/P CABG x 3 [address] [facility] [place] [address] [place] [address] RD [phone] [facility] [place], [place] [address] (Wo rk) Social History [...] Zulma Dolan MD [facility] [place], [place] [address] (Wo rk) 05/28/2022 Laboratory Appointment Lab 05/28/2022 Office Visit Cardiology Zulma Dolan MD [facility] [place] [address] Liz Poole PA [facility] [place] [address] 06/10/2022 Office Visit Dermatology Laura Scherer MD [facility] [address] [place], [place] [address] (Wo rk) documented as of [...] 2017 EXAMINATION: XR CHEST PA AND LATERAL (JoinityIC) CLINICAL HISTORY: CABG x 3 TECHNIQUE: PA [...] status documented in this encounter Care Teams Caisson Worker Relationship Specialty Start Date End Date Lovely Vicente MD PCP - General 04/16/[address] [place], [place] [address]Y [facility] [address] [place] [address] documented as of this encounter
--- OUTSIDE RECORDS SUMMARY | 2022-05-01 08:55 | XMS_ITS | Encounter Summary ---
:1945 [place] [address] Care Team Providers Name Role Phone Lovely Vicente MD Primary Care Provider Reason for Visit Auth/Cert Specialty Diagnoses / Procedures Referred By Contact Refer red To Contact Diagnoses Critical lower limb ischemia CELLULITIS RT FOOT Procedures EMERGENCY Referral ID Status Reason Start Date Expiration Date Visits Requ ested Visits Authorized [id number] 1 1 Encounter Details Date Type Department Care Team Description 08/06/2017 - Hospital Encounter 5 Yonathan Oneill lower limb ischemia; 08/16/2017 Su Flores MD Ischemic foot Hospital 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 Patient [...] Dorsalis Pedis (Ankle) Artery ?132 ? 0.94 ??[place]-Biphasic ? Posterior Tibial (Ankle) Artery ??154 ? 1.10 ??[place]-Biphasic ? Fourth Toe ? 67 ?0.48 ?? [...] foot. Discharge Conditions/Prognosis: Good Discharge to: [facility] Rehab Discharge Medications: Your Medications [...] For any problems or questions please call [phone] ZELDA Smith, company tanker truck driver Nurse Clinician For issues on weeknights after 5pm and weekends please call [phone] and ask for the Vascular Fellow human resources operations specialist. General Instructions None Future Appointments and Orders Future Appointments Provider Department Dept Phone 08/26/2017 4:00 PM Aurelia Rivera PA [facility] [place] [phone] 09/07/2017 3:00 PM LAB, THREE L Lab 3L [facility] [phone] 09/07/2017 4:00 PM Luz Prescott MD Endocrinology at [place] [phone] 09/09/2017 8:00 AM Barbra Soares APRN [facility] [place] [phone] Please bring a list of your current [...] For any problems or questions please call [phone] ZELDA Smith, company tanker truck driver Nurse Clinician For issues on weeknights after 5pm and weekends please call [phone] and ask for the Vascular Fellow human resources operations specialist. documented in this encounter Medications [...] Capsule daily. documented as of this encounter Progress Notes Shirin Wolf, RN - 08/16/2017 11:14 AM EST Office of Care Management Discharge Note Patient Destination: [facility] ([facility]) [address] [place] [address] Transportation: with (at bedside) Time of Discharge: by 12 noon Level of Care: swing Patient Aware: yes Family Notified: yes Md to call report to: Yissel Quintero BEAUTY SALES ADVISOR already called RN to call report to: [phone] Shirin Wolf Office of Care Management Pager [phone] Shirin Wolf RN - 08/16/2017 10:50 AM EST [facility] has offered pt swing bed. Pt and accept bed. will transport via car. BEAUTY SALES ADVISOR Yissel Quintero aware; d/c paperwork will be completed by 12 noon. [facility] requests pt arrival by 1400 today; BEAUTY SALES ADVISOR, RN, and family aware. BEAUTY SALES ADVISOR called [facility] and was told that they prefer pt to arrive with wound vac dressing applied but clamped. BEAUTY SALES ADVISOR applied new wound vac dressing. RN has [facility] number to call report. PASSR completed; BEAUTY SALES ADVISOR paged to request provider signature in highlighted space. Indigo from [facility] notified via email that home wound vac now cancelled; STORES has picked up from room and order cancelled. Packet started and provided to community mental health worker. Medicare important message explained to patient, patient signed. Copy provided to patient and signature page to OCM for inclusion in pt EMR. Radha Georges - 08/16/2017 10:34 AM EST Office of Care Management/Telecommunications Clerk Patient Name: Gregory Hoang : 1945 Patient has been offered a swing bed at [facility]. The patient will be transported by private transportation. No MD to MD report necessary Please call Nursing Report to [phone], ask for rail director. Info to accompany patient: Narcotic Prescriptions Copies of Medication Administration Records and IV sheets for past 10 days. Plan: Telecommunications Clerk will be available to the patient and Senior Electronics Technician-RN and/or Elevator Repairer for further assistance. Patient will be discharged to: [place] [id number] Radha Powers, Telecommunications Clerk Mira Black, VAMSI - 08/15/2017 10:05 PM EST [address] Flores to ask if he wanted to hold metoprolol dose. BP 95/58. OK to hold this dose Courtney Brito - 08/15/2017 3:26 PM EST Office of Care Management(OCM)/Telecommunications Clerk(RS)/ D/C Planning re : Patient is medically ready for d/c today. RS has been in contact with [facility] to see if they could offer a bed. [facility] is still reviewing the case and need their MD to review chart prior to accepting or declining. OCM team needs to check in with [facility] tomorrow to check on status. 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 Vac in place. [...] to: [facility] PHONE: [phone] FAX: [phone] CM spoke with RS who said that [...] rehab. Await recommendations from PT. Covering pager #[phone]. 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 Body Builder Apprentice Kaitlin Saha, RN Pager #[phone] Payam Rosales - 08/13/2017 2:37 PM EST Food Photographer Encounter Note Patient Name: Gregory Hoang : [id number] MR#: [id number] Admit Date: 08/06/2017 1:41 PM Hospital Day 7 days Narrative: Visited to introduce and assess acceptance of Food Photographer services. Pt was awake, alert, oriented and in chair and family was there. Assessment:Patient coping positively with stresses of illness/hospitalization at this time. Pt says that he is hoping to get better and his family was there. Pt says that he has family care and supportand taking one day at time. Intervention and Outcome: Provided emotional support and encouraging presence. 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 A letter describing our affiliations was reviewed with them and theywere educated about their right to choose where referrals are placed. Patient requests referral to [facility]. PHONE: [phone] FAX: [phone]. And Home NPWT (Negative Pressure Wound Therapy) aka wound vac device made available to pt. Serial # confirmed. Reviewed [facility] Proof of Delivery/Assignment of Benefits Statement(POD/AOB) Form w patient or authorized agent signing on behalf of patient. Copy of POD/AOB provided to pt and other copy faxed to [employer] @ fax# [phone] Expected date of discharge: 08/12/2017. 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 Heparin gtt continues to run. Pt [...] of : 1945 AGE 72 y.o. 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 Unsuccessful draw attempt, another auger supervisor will come 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 Vascular resident human resources operations specialist and will forward result to the team prior to rounds. 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 [...] 5. Completion RLE angiogram 6. L BUCKLE GLUER angiogram 7. 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 - L BUCKLE GLUER angriogram demonstrated: High femoral bifurcation over the proximal half of the femoral head. L BUCKLE GLUER access in the distal L BUCKLE GLUER. - Closure device: Mynx Technical Procedure: The [...] for a 45cm 5F Destination. V18 and [place] and QuickCross catheters were used to select [...] A stationed picture of the L BUCKLE GLUER was performed as the patient was noted to have a very high bifurcation. Access appeared in the distal R BUCKLE GLUER. Closure and sheath removal was performed with [...] PM EST 1440 report called to 5 philipp nurse Tessa AGUSTIN documented in this encounter [...] pt and pt's spouse. Discharge to [facility]. Goal: Individualization & Mutuality Outcome: [...] sit/sit to supine -- Bed Mobility Goal, [place] Level independent -- Bed Mobility Goal, Date [...] days -- Transfer Training Goal, Activity Type nad-ip-gwvan/xqxen-pb-nfe -- Transfer Train Goal, [place] Level conditional independence -- Transfer Train Goal, [...] call cabello within reach, Hourly rounding by RN/CHARGE ENTRY SPECIALIST. Bed alarm / Chair alarm. Patient-specific fall [...] - 08/15/2017 6:28 PM EST [facility] [place] Patient Name: Gregory Hoang : [id number] MR#: [id number] Case Date: 08/09/2017 Surgeon: Surgeon(s) and Role: [...] 5. Completion RLE angiogram 6. L BUCKLE GLUER angiogram 7. Mynx closure Precautions/Restrictions: fall, sternal [...] feet/ bed -> bathroom). Anticipated Discharge Disposition: shelter facility, other (see comments) (or swing bed) Pager: [phone] BASSAM ELIAS, PT 08/14/2017 Inpatient Physical Therapy [...] to Achieve by discharge Gait Training Goal, [place] Level conditional independence;set up required Gait Training [...] facilities over the weekend except for [facility]. CM spoke with [facility] CM Drea Sandhu, VAMSI who said that they do not anticipate any beds over the weekend. Reviewed with patient/ that they need to be aware that patient will need to take the first bed offered at the facilities that they make referrals to. Their choices are: 1- [facility] PHONE: [phone] FAX: [phone] 2- [facility] ([facility]) [address] [place] [address] 3- [facility]) [address] [place] [address] I have discussed Medicare/Private Insurance [...] RS/CM on Wednesday to follow-up. Covering pager #[phone] for today. Plan of Care - Henrique [...] additional findings of pseudoaneurysm on R BUCKLE GLUER and bilateral anterior tibial artery occlusions. Was [...] an outpatient once discharged. Have patient call [phone] to set up an appointment. Follow-up: Dermatology will sign-off for now. Please do not hesitate to contact us if you have any questions orconcerns. Impression and Recommendations discussed with primary team on 08/13/2017. Karo Henderson MD Resident in Dermatology Section of Dermatology, Department of Surgery [facility] Pager [phone] Patient seen and evaluated with staff Marketing Services Coordinator: Halima Cordero MD Section of Dermatology [facility] Level of Resident Supervision: Direct Supervision (The [...] 5. Completion RLE angiogram 6. L BUCKLE GLUER angiogram 7. Mynx closure Active Non-Hospital Problems [...] home with home health ([facility] PT[facility]OT) Pager: [phone] YASIR TELLO OT 08/12/2017 Occupational Therapy Rehabilitation [...] 5. Completion RLE angiogram 6. L BUCKLE GLUER angiogram 7. Mynx closure Past Medical History: [...] with 24/7 assistance and maximal services) Pager: [phone] NICHOLAS MORA, PT 08/12/2017 Physical Therapy Rehabilitation [...] sit/sit to supine -- Bed Mobility Goal, [place] Level independent -- Bed Mobility Goal, Outcome Achieved -- goal ongoing Goal: Gait Training Goal Stand Alone Therapy Goal Outcome: Ongoing (Interventions Implemented as Appropriate) 08/11/17 1310 08/12/17 1510 Gait Training Goal Gait Training Goal, Date Established 08/11/17 -- Gait Training Goal, Time to Achieve 5 - 7 days -- Gait Training Goal, [place] Level conditional independence -- Gait Training Goal, [...] days -- Transfer Training Goal, Activity Type dcz-zc-eeedc/fllvq-nu-zkj -- Transfer Train Goal, [place] Level conditional independence -- Transfer Training Goal, [...] - 08/11/2017 2:52 PM EST [facility] [place] Patient Name: Gregory Hoang : [id number] MR#: [id number] Case Date: 08/11/2017 Surgeon: Surgeon(s) and Role: [...] 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 Completion RLE angiogram 6. L BUCKLE GLUER angiogram 7. Mynx closure He is very [...] Anticipated Discharge Disposition: inpatient rehabilitation facility Pager: [phone] LAWRENCE GONZALEZ, PT 08/11/2017 Physical Therapy Rehabilitation [...] to sit/sit to supine Bed Mobility Goal, [place] Level independent Goal: Gait Training Goal Stand Alone Therapy Goal Outcome: Ongoing (Interventions Implemented as Appropriate) 08/11/17 1310 Gait Training Goal Gait Training Goal, Date Established 08/11/17 Gait Training Goal, Time to Achieve 5 - 7 days Gait Training Goal, [place] Level conditional independence Gait Training Goal, Assist [...] 7 days Transfer Training Goal, Activity Type aje-hu-yhysv/wncgz-by-ryo Transfer Train Goal, [place] Level conditional independence Plan of [facility] [...] call cabello within reach, Hourly rounding by RN/CHARGE ENTRY SPECIALIST. Bed alarm / Chair alarm. ? Patient-specific [...] Within the Past 30 Days: [facility] [place] Anticipated Length Of Stay (If known): Expected Length of Hospitalization: 5-7 days2-3 days Current Decision-Making Capacity: Alert and oriented x 4 Advance Care Planning: on file Kisha Hoang [facility] [phone] Current Coping/Education/Information Needs: pt and spouse state [...] Health/Prescription Coverage: Primary Insurance: MEDICARE Secondary Insurance: [employer] [facility] Prescription Coverage: See above Preferred Pharmacy: [facility] Other: N/A Primary Care Provider: Lovely Vicente MD [phone] Patient/Caregiver Goals of Treatment: Patient plans to return home when medically ready Potential Needs for Transition of Care: Rehab/SNF: N/A Home Health: [facility]. DME: pt has a cane [...] of care planning. Kaitlin Saha RN Pager: [phone] Plan of Care - Melba Jaramillo RN [...] call cabello within reach, Hourly rounding by RN/CHARGE ENTRY SPECIALIST. Bed alarm / Chair alarm. Patient-specific fall [...] at bedside and MD TEAM Carrying pager [phone] contacted (via Radio page) and notified of [...] Zulma Dolan MD [facility] [place], [place] [address] (Wo rk) 05/28/2022 Laboratory Appointment Lab 05/28/2022 Office Visit Cardiology Zulma Dolan MD [facility] [place] [address] Liz Poole PA [facility] [place] [address] 06/10/2022 Office Visit Dermatology Laura Scherer MD [facility] DR [address] [facility] [place], [place] [address] (Wo rk) documented as of [...] POC Glucose 160 65 - 199 [facility] mg/dL [facility] Comment: Supplemental ranges: <140 mg/dL before meals <180 mg/dL all other times of the day Specimen Anatomical Collection Method Collection Time Receive d Time (Source) Location / / Volume Laterality Blood specimen 08/16/2017 7:28 AM 018 7:28 (specimen) EST AM EST Yonathan Smith MD POINT OF CARE TEST ORDERABLE S Performing Organization Address City/State/[place] [address] (ABNORMAL) Differential, Automated (08/16/2017 5:08 AM EST) [facility] Method Time Signature Neutrophils % 73.9 % [facility] Neutr Abs (ANC) 5.37 1.70 - [facility] 6.10 [facility] x10(3)/[facility] LABORATORY Lymphocytes % 10.1 % [facility] Lymphocytes Abs 0.7 (L) 0.9 - 3.2 [facility] x10(3)/[facility] LABORATORY Monocytes % 10.1 % [facility] Monocyte Abs 0.7 0.3 - 0.9 [facility] x10(3)/[facility] LABORATORY Eosinophils % 5.1 % [facility] Eosinophils Abs 0.4 0.0 - 0.4 [facility] x10(3)/[facility] LABORATORY Basophils % 0.4 % [facility] Basophils Abs 0.0 0.0 - 0.1 [facility] x10(3)/[facility] LABORATORY Immature Gran % 0.40 % [facility] [...] Melisa Gran Abs 0.03 0.00 - 0.04 x10(3)/[facility] Y [facility] LABORATORY Specimen Anatomical Collection Method Collection Time Receive d Time (Source) Location / / Volume Laterality Blood specimen 08/16/2017 5:08 AM 018 5:20 (specimen) EST AM EST Resulting Agency Comment Spec In Lab Yonathan Smith MD HEMATOLOGY ORDERABLES Performing Organization Address City/State/[place] [address] (ABNORMAL) Hemogram (08/16/2017 5:08 AM EST) Analysis Performed At Patho logist Time Signature WBC 7.3 4.0 - 9.5 [facility] x10(3)/[facility] LABORATORY RBC 3.36 (L) 4.58 - [facility] SU 5.54 [facility] x10(6)/[facility] LABORATORY Hemoglobin 9.7 (L) 13.7 - [facility] 16.5 gm/dL [facility] Hematocrit 30.3 (L) 40.5 - [facility] 48.5 % [facility] MCV 90.2 82.9 - [facility] 93.1 [facility] LABORATORY MCH 28.9 27.5 - [facility] 32.1 pg [facility] MCHC 32.0 32.0 - [facility] 35.7 gm/dL [facility] Platelets 282 145 - 357 [facility] x10(3)/[facility] LABORATORY RDWSD 53.9 (H) 36.0 - [facility] 45.0 [facility] LABORATORY RDWCV 16.5 (H) 11.4 - [facility] SU 13.8 % [facility] MPV 9.0 7.6 - 12.9 [facility] LABORATORY nRBC % Auto 0.0 % [facility] nRBC Abs Auto 0.000 0.000 - [facility] SU 0.000 [facility] x10(3)/[facility] LABORATORY Specimen Anatomical Collection Method Collection Time Receive d Time (Source) Location / / Volume Laterality Blood specimen 08/16/2017 5:08 AM 018 5:20 (specimen) EST AM EST Resulting Agency Comment Spec In Lab Yonathan Smith MD HEMATOLOGY ORDERABLES Performing Organization Address City/State/[place] [address] (ABNORMAL) Basic Metabolic Panel (non-fasting) (08/16/2017 5:08 AM EST) P athologist Signature Glucose Lvl 141 65 - 199 [facility] mg/dL [facility] Comment: [...] or in patients with acute kidney failure. [email or web address]/DHnkdep [email or web address]/DHMCnkf Specimen Anatomical Collection Method Collection Time Receive d Time (Source) Location / / Volume Laterality Blood specimen 08/16/2017 5:08 AM 018 5:20 (specimen) EST AM EST Resulting Agency Comment Spec In Lab Yonathan Smith MD CHEMISTRY ORDERABLES Performing Organization Address City/State/[place] [address] (ABNORMAL) Prothrombin Time (08/16/2017 [...] Address City/State/ZIP Code Phon e Number [address] POCT Glucose (08/16/2017 4:09 AM EST) athologist Signature POC Glucose 147 65 - 199 [facility] mg/dL [facility] Comment: Supplemental ranges: <140 mg/dL before meals <180 mg/dL all other times of the day Specimen Anatomical Collection Method Collection Time Receive d Time (Source) Location / / Volume Laterality Blood specimen 08/16/2017 4:09 AM 018 4:09 (specimen) EST AM EST Yonathan Smith MD POINT OF CARE TEST ORDERABLE S Performing Organization Address City/State/[place] [address] POCT Glucose (08/15/2017 11:56 PM EST) athologist Signature POC Glucose 176 65 - 199 [facility] SU mg/dL [facility] Comment: Supplemental ranges: <140 mg/dL before meals <180 mg/dL all other times of the day Specimen Anatomical Collection Method Collection Time Receive d Time (Source) Location / / Volume Laterality Blood specimen 08/15/2017 11:56 8 (specimen) PM EST 11:56 PM EST Yonathan Smith MD POINT OF CARE TEST ORDERABLE S Performing Organization Address City/State/[place] [address] POCT Glucose (08/15/2017 8:05 PM EST) athologist Signature POC Glucose 136 65 - 199 [facility] mg/dL [facility] Comment: Supplemental ranges: <140 mg/dL before meals <180 mg/dL all other times of the day Specimen Anatomical Collection Method Collection Time Receive d Time (Source) Location / / Volume Laterality Blood specimen 08/15/2017 8:05 PM 018 8:05 (specimen) EST PM EST Yonathan Smith MD POINT OF CARE TEST ORDERABLE S Performing Organization Address City/State/[place] [address] (ABNORMAL) POCT Glucose (08/15/2017 4:50 PM EST) athologist Signature POC Glucose 232 (H) 65 - 199 [facility] SU mg/dL [facility] Comment: Supplemental ranges: <140 mg/dL before meals <180 mg/dL all other times of the day Specimen Anatomical Collection Method Collection Time Receive d Time (Source) Location / / Volume Laterality Blood specimen 08/15/2017 4:50 PM 018 4:50 (specimen) EST PM EST Yonathan Smith MD POINT OF CARE TEST ORDERABLE S Performing Organization Address City/State/[place] [address] POCT Glucose (08/15/2017 12:04 PM EST) athologist Signature POC Glucose 135 65 - 199 [facility] SU mg/dL [facility] Comment: Supplemental ranges: <140 mg/dL before meals <180 mg/dL all other times of the day Specimen Anatomical Collection Method Collection Time Receive d Time (Source) Location / / Volume Laterality Blood specimen 08/15/2017 12:04 8 (specimen) PM EST 12:04 PM EST Yonathan Smith MD POINT OF CARE TEST ORDERABLE S Performing Organization Address City/State/[place] [address] POCT Glucose (08/15/2017 7:36 AM EST) P athologist Signature POC Glucose 124 65 - 199 [facility] mg/dL [facility] Comment: Supplemental ranges: <140 mg/dL before meals <180 mg/dL all other times of the day Specimen Anatomical Collection Method Collection Time Receive d Time (Source) Location / / Volume Laterality Blood specimen 08/15/2017 7:36 AM 018 7:36 (specimen) EST AM EST Yonathan Smith MD POINT OF CARE TEST ORDERABLE S Performing Organization Address City/State/[place] [address] (ABNORMAL) Differential, Automated (08/15/2017 6:22 AM EST) Patholo gist Method Time Signature Neutrophils % 76.1 % [facility] Neutr Abs (ANC) 6.62 (H) 1.70 - [facility] 6.10 [facility] x10(3)/[facility] L LABORATORY Lymphocytes % 9.3 % [facility] Lymphocytes Abs 0.8 (L) 0.9 - 3.2 [facility] x10(3)/[facility] LABORATORY Monocytes % 9.4 % [facility] Monocyte Abs 0.8 0.3 - 0.9 [facility] x10(3)/[facility] LABORATORY Eosinophils % 4.0 % [facility] Eosinophils Abs 0.4 0.0 - 0.4 [facility] x10(3)/[facility] LABORATORY Basophils % 0.6 % [facility] Basophils Abs 0.0 0.0 - 0.1 [facility] x10(3)/[facility] LABORATORY Immature Gran [...] Organization Address City/State/[place] [address] (ABNORMAL) Hemogram (08/15/2017 6:22 AM EST) Analysis Performed At Patho logist Time Signature WBC 8.7 4.0 - 9.5 [facility] x10(3)/[facility] LABORATORY RBC 3.21 (L) 4.58 - [facility] 5.54 [facility] x10(6)/[facility] LABORATORY Hemoglobin 9.1 (L) 13.7 - [facility] 16.5 gm/dL [facility] Hematocrit 29.0 (L) 40.5 - [facility] 48.5 % [facility] MCV 90.3 82.9 - [facility] 93.1 [facility] LABORATORY MCH 28.3 27.5 - [facility] 32.1 pg [facility] MCHC 31.4 (L) 32.0 - [facility] gm/dL [facility] Platelets 254 145 - 357 [facility] x10(3)/[facility] LABORATORY RDWSD 53.9 (H) 36.0 - [facility] SU 45.0 [facility] LABORATORY RDWCV 16.3 (H) 11.4 - [facility] SU 13.8 % [facility] MPV 8.8 7.6 - 12.9 [facility] LABORATORY nRBC % Auto 0.0 % [facility] nRBC Abs Auto 0.000 0.000 - [facility] SU 0.000 [facility] x10(3)/[facility] LABORATORY Specimen Anatomical Collection Method Collection Time Receive d Time (Source) Location / / Volume Laterality Blood specimen 08/15/2017 6:22 AM 018 6:33 (specimen) EST AM EST Resulting Agency Comment Spec In Lab Yonathan Smith MD HEMATOLOGY ORDERABLES Performing Organization Address City/[facility]/[place]IP [place] [address] (ABNORMAL) Basic Metabolic Panel (non-fasting) (08/15/2017 6:22 AM EST) athologist Signature Glucose Lvl 118 65 - 199 [facility] mg/dL [facility] Comment: [...] or in patients with acute kidney failure. [email or web address] [email or web address] Specimen Anatomical Collection Method Collection Time Receive d Time (Source) Location / / Volume Laterality Blood specimen 08/15/2017 6:22 AM 018 6:33 (specimen) EST AM EST Resulting Agency Comment Spec In Lab Yonathan Smith MD CHEMISTRY ORDERABLES Performing Organization Address City/[facility]/[place] [address] (ABNORMAL) Prothrombin Time (08/15/2017 [...] Address City/State/[place] [address] POCT Glucose (08/15/2017 4:33 AM EST) athologist Signature POC Glucose 164 65 - 199 [facility] mg/dL [facility] Comment: Supplemental ranges: <140 mg/dL before meals <180 mg/dL all other times of the day Specimen Anatomical Collection Method Collection Time Receive d Time (Source) Location / / Volume Laterality Blood specimen 08/15/2017 4:33 AM 018 4:33 (specimen) EST AM EST Yonathan Smith MD POINT OF CARE TEST ORDERABLE S Performing Organization Address City/State/[place] [address] POCT Glucose (08/15/2017 12:12 AM EST) athologist Signature POC Glucose 89 65 - 199 [facility] mg/dL [facility] Comment: Supplemental ranges: <140 mg/dL before meals <180 mg/dL all other times of the day Specimen Anatomical Collection Method Collection Time Receive d Time (Source) Location / / Volume Laterality Blood specimen 08/15/2017 12:12 8 (specimen) AM EST 12:12 AM EST Yonathan Smith MD POINT OF CARE TEST ORDERABLE S Performing Organization Address City/State/[place] [address] (ABNORMAL) POCT Glucose (08/14/2017 8:07 PM EST) athologist Signature POC Glucose 204 (H) 65 - 199 [facility] mg/dL [facility] Comment: Supplemental ranges: <140 mg/dL before meals <180 mg/dL all other times of the day Specimen Anatomical Collection Method Collection Time Receive d Time (Source) Location / / Volume Laterality Blood specimen 08/14/2017 8:07 PM 018 8:07 (specimen) EST PM EST Yonathan Smith MD POINT OF CARE TEST ORDERABLE S Performing Organization Address City/State/[place] [address] POCT Glucose (08/14/2017 5:11 PM EST) athologist Signature POC Glucose 174 65 - 199 [facility] mg/dL [facility] Comment: Supplemental ranges: <140 mg/dL before meals <180 mg/dL all other times of the day Specimen Anatomical Collection Method Collection Time Receive d Time (Source) Location / / Volume Laterality Blood specimen 08/14/2017 5:11 PM 018 5:11 (specimen) EST PM EST Yonathan Smith MD POINT OF CARE TEST ORDERABLE S Performing Organization Address City/State/[place] [address] POCT Glucose (08/14/2017 12:10 PM EST) athologist Signature POC Glucose 141 65 - 199 [facility] mg/dL [facility] Comment: Supplemental ranges: <140 mg/dL before meals <180 mg/dL all other times of the day Specimen Anatomical Collection Method Collection Time Receive d Time (Source) Location / / Volume Laterality Blood specimen 08/14/2017 12:10 8 (specimen) PM EST 12:10 PM EST Yonathan Smith MD POINT OF CARE TEST ORDERABLE S Performing Organization Address City/State/ZIP Code Phon e Number [address] POCT Glucose (08/14/2017 8:07 AM EST) P athologist Signature POC Glucose 158 65 - 199 [facility] mg/dL [facility] Comment: Supplemental ranges: <140 mg/dL before meals <180 mg/dL all other times of the day Specimen Anatomical Collection Method Collection Time Receive d Time (Source) Location / / Volume Laterality Blood specimen 08/14/2017 8:07 AM 018 8:07 (specimen) EST AM EST Yonathan Smith MD POINT OF CARE TEST ORDERABLE S Performing Organization Address City/State/[place] [address] (ABNORMAL) Differential, Automated (08/14/2017 4:52 AM EST) Patholo gist Method Time Signature Neutrophils % 78.6 % [facility] Neutr Abs (ANC) 7.70 (H) 1.70 - [facility] 6.10 [facility] x10(3)/[facility] L LABORATORY Lymphocytes % 7.8 % [facility] Lymphocytes Abs 0.8 (L) 0.9 - 3.2 [facility] x10(3)/[facility] LABORATORY Monocytes % 8.8 % [facility] Monocyte Abs 0.9 0.3 - 0.9 [facility] x10(3)/[facility] LABORATORY Eosinophils % 4.0 % [facility] Eosinophils Abs 0.4 0.0 - 0.4 [facility] x10(3)/[facility] LABORATORY Basophils % 0.5 % [facility] Basophils Abs 0.0 0.0 - 0.1 [facility] x10(3)/[facility] LABORATORY Immature Gran % 0.30 [...] [facility] MAR Y [facility] LABORATORY Specimen Anatomical Collection Method Collection Time Receive d Time (Source) Location / / Volume Laterality Blood specimen 08/14/2017 4:52 AM 018 5:08 (specimen) EST AM EST Resulting Agency Comment Spec In Lab Yonathan Smith MD HEMATOLOGY ORDERABLES Performing Organization Address City/State/[place] [address] (ABNORMAL) Hemogram (08/14/2017 4:52 AM EST) Analysis Performed At Patho logist Time Signature WBC 9.8 (H) 4.0 - 9.5 [facility] x10(3)/[facility] LABORATORY RBC 3.32 (L) 4.58 - [facility] 5.54 [facility] x10(6)/[facility] LABORATORY Hemoglobin 9.5 (L) 13.7 - [facility] 16.5 gm/dL [facility] Hematocrit 30.3 (L) 40.5 - [facility] SU 48.5 % [facility] MCV 91.3 82.9 - [facility] SU 93.1 [facility] LABORATORY MCH 28.6 27.5 - [facility] 32.1 pg [facility] MCHC 31.4 (L) 32.0 - [facility] US 35.7 gm/dL [facility] Platelets 263 145 - 357 [facility] x10(3)/[facility] LABORATORY RDWSD 54.8 (H) 36.0 - [facility] SU 45.0 [facility] RDWCV 16.5 (H) 11.4 - [facility] SU 13.8 % [facility] MPV 9.1 7.6 - 12.9 [facility] LABORATORY nRBC % Auto 0.0 % [facility] nRBC Abs Auto 0.000 0.000 - [facility] 0.000 [facility] x10(3)/[facility] LABORATORY Specimen Anatomical Collection Method Collection Time Receive d Time (Source) Location / / Volume Laterality Blood specimen 08/14/2017 4:52 AM 018 5:08 (specimen) EST AM EST Resulting Agency Comment Spec In Lab Yonathan Smith MD HEMATOLOGY ORDERABLES Performing Organization Address City/[facility]/[place] [address] (ABNORMAL) Prothrombin Time (08/14/2017 [...] Organization Address City/State/[place] [address] (ABNORMAL) Basic Metabolic Panel (non-fasting) (08/14/2017 4:52 AM EST) athologist Signature Glucose Lvl 135 65 - 199 [facility] mg/dL [facility] Comment: [...] or in patients with acute kidney failure. [email or web address] [email or web address] Specimen Anatomical Collection Method Collection Time Receive d Time (Source) Location / / Volume Laterality Blood specimen 08/14/2017 4:52 AM 018 5:08 (specimen) EST AM EST Resulting Agency Comment Spec In Lab Yonathan Smith MD CHEMISTRY ORDERABLES Performing Organization Address City/State/Z[place] [address] POCT Glucose (08/14/2017 3:56 AM EST) P athologist Signature POC Glucose 135 65 - 199 [facility] mg/dL [facility] Comment: Supplemental ranges: <140 mg/dL before meals <180 mg/dL all other times of the day Specimen Anatomical Collection Method Collection Time Receive d Time (Source) Location / / Volume Laterality Blood specimen 08/14/2017 3:56 AM 018 3:56 (specimen) EST AM EST Yonathan Smith MD POINT OF CARE TEST ORDERABLE S Performing Organization Address City/State/ZIP Code [place] [address] POCT Glucose (08/13/2017 11:13 PM EST) athologist Signature POC Glucose 118 65 - 199 [facility] mg/dL [facility] Comment: Supplemental ranges: <140 mg/dL before meals <180 mg/dL all other times of the day Specimen Anatomical Collection Method Collection Time Receive d Time (Source) Location / / Volume Laterality Blood specimen 08/13/2017 11:13 8 (specimen) PM EST 11:13 PM EST Yonathan Simth MD POINT OF CARE TEST ORDERABLE S Performing Organization Address City/[facility]/ZIP Code [place] [address] (ABNORMAL) POCT Glucose (08/13/2017 8:08 PM EST) athologist Signature POC Glucose 204 (H) 65 - 199 [facility] mg/dL [facility] Comment: Supplemental ranges: [...] [facility]/ZIP Code Phon e [place] [address] POCT Glucose (08/13/2017 4:02 PM EST) athologist Signature POC Glucose 145 65 - 199 [facility] mg/dL [facility] Comment: Supplemental ranges: <140 mg/dL before meals <180 mg/dL all other times of the day Specimen Anatomical Collection Method Collection Time Receive d Time (Source) Location / / Volume Laterality Blood specimen 08/13/2017 4:02 PM 018 4:02 (specimen) EST PM EST Yonathan Smith MD POINT OF CARE TEST ORDERABLE S Performing Organization Address City/State/[place] [address] POCT Glucose (08/13/2017 11:31 AM EST) P athologist Signature POC Glucose 179 65 - 199 [facility] mg/dL [facility] Comment: Supplemental ranges: [...] [facility]/[place] [address] (ABNORMAL) POCT Glucose (08/13/2017 10:16 AM EST) athologist Signature POC Glucose 211 (H) 65 - 199 [facility] mg/dL [facility] Comment: Supplemental ranges: [...] [facility]/ZIP Code Phon e Number [address] JULIAN, legs, multiple levels (08/13/2017 7:42 AM EST) Component Value Ref Test Analysis Performed At Patholo gist Range Method Time Signature VB Text Department: Vascular Surgery Lab VASCUBASE Report Patient: [id number] (GREGORY HOANG) CPT: 89418 ICD10: I99.8 Referring Physician: YONATHAN SMITH ?? Indications: s/p R 1,2,3 toe amps with red left foot, need n ew baseline Diabetes mellitus: yes ICD10 Diagnosis Code: I99.8 Findings: Right ?Pressure (mm Hg) ?? JULIAN ??Waveform ?TBI ?? Brachial Artery ?138 ? Dorsalis Pedis (Ankle) Arter y ?132 ? 0.94 ??[place]- Biphasic ? Posterior Tibial (Ankle) Art anila ??154 ? 1.10 ??[place]-Biphasic ? Fourth Toe ? 67 ? 0.48 [...] 156 65 - 199 [place] mg/dL [facility] Comment: Supplemental ranges: <140 mg/dL before meals <180 mg/dL all other times of the day Specimen Anatomical Collection Method Collection Time Receive d Time (Source) Location / / Volume Laterality Blood specimen 08/13/2017 7:33 AM 018 7:33 (specimen) EST AM EST Yonathan Smith MD POINT OF CARE TEST ORDERABLE S Performing Organization Address City/State/[place] [address] (ABNORMAL) Differential, Automated (08/13/2017 5:33 AM EST) [facility] Method Time Signature Neutrophils % 77.8 % [facility] Neutr Abs (ANC) 7.83 (H) 1.70 - [facility] 6.10 [facility] x10(3)/[facility] L LABORATORY Lymphocytes % 8.4 % [facility] Lymphocytes Abs 0.8 (L) 0.9 - 3.2 [facility] x10(3)/[facility] LABORATORY Monocytes % 8.3 % [facility] Monocyte Abs 0.8 0.3 - 0.9 [facility] x10(3)/[facility] LABORATORY Eosinophils % 4.6 % [facility] Eosinophils Abs 0.5 (H) 0.0 - 0.4 [facility] x10(3)/[facility] LABORATORY Basophils % 0.5 % [facility] Basophils Abs 0.0 0.0 - 0.1 [facility] x10(3)/[facility] LABORATORY Immature Gran [...] 0.04 0.00 - 0.04 x10(3)/[facility] MAR Y [facility] LABORATORY Specimen Anatomical Collection Method Collection Time Receive d Time (Source) Location / / Volume Laterality Blood specimen 08/13/2017 5:33 AM 018 6:04 (specimen) EST AM EST Resulting Agency Comment Spec In Lab Yonathan Smith MD HEMATOLOGY ORDERABLES Performing Organization Address City/State/ZIP Code Phon e Number [address] (ABNORMAL) Hemogram (08/13/2017 5:33 AM EST) Analysis Performed At Patho logist Time Signature WBC 10.1 (H) 4.0 - 9.5 [facility] x10(3)/[facility] LABORATORY RBC 3.21 (L) 4.58 - [facility] 5.54 [facility] x10(6)/[facility] LABORATORY Hemoglobin 9.2 (L) 13.7 - [facility] 16.5 gm/dL [facility] Hematocrit 29.6 (L) 40.5 - [facility] 48.5 % [facility] MCV 92.2 82.9 - [facility] 93.1 [facility] LABORATORY MCH 28.7 27.5 - [facility] 32.1 pg [facility] MCHC 31.1 (L) 32.0 - [facility] gm/dL [facility] Platelets 263 145 - 357 [facility] x10(3)/[facility] LABORATORY RDWSD 54.8 (H) 36.0 - [facility] 45.0 [facility] LABORATORY RDWCV 16.4 (H) 11.4 - [facility] 13.8 % [facility] MPV 9.2 7.6 - 12.9 [facility] LABORATORY nRBC % Auto 0.0 % [facility]ORY nRBC Abs Auto 0.000 0.000 - [facility] 0.000 [facility] x10(3)/[facility] LABORATORY Specimen Anatomical Collection Method Collection Time Receive d Time (Source) Location / / Volume Laterality Blood specimen 08/13/2017 5:33 AM 018 6:04 (specimen) EST AM EST Resulting Agency Comment Spec In Lab Yonathan Smith MD HEMATOLOGY ORDERABLES Performing Organization Address City/State/[place] [address] (ABNORMAL) Prothrombin Time (08/13/2017 [...] City/State/ZIP Code Phon e Number [place] [id number] (ABNORMAL) Basic Metabolic Panel (non-fasting) (08/13/2017 5:33 AM EST) athologist Signature Glucose Lvl 126 65 - 199 [facility] mg/dL [facility] Comment: [...] or in patients with acute kidney failure. [email or web address] [email or web address] Specimen Anatomical Collection Method Collection Time Receive d Time (Source) Location / / Volume Laterality Blood specimen 08/13/2017 5:33 AM 018 6:04 (specimen) EST AM EST Resulting Agency Comment Spec In Lab Yonathan Smith MD CHEMISTRY ORDERABLES Performing Organization Address City/[facility]/ZIP [facility] Phon e Number [address] POCT Glucose (08/13/2017 4:29 AM EST) athologist Signature POC Glucose 111 65 - 199 [facility] mg/dL [facility] Comment: Supplemental ranges: [...] [facility]/ZIP Code Phon e Number [address] POCT Glucose (08/12/2017 11:28 PM EST) athologist Signature POC Glucose 164 65 - 199 [facility] mg/dL [facility] Comment: Supplemental ranges: [...] [facility]/[place] [address] (ABNORMAL) POCT Glucose (08/12/2017 7:40 PM EST) athologist Signature POC Glucose 209 (H) 65 - 199 [facility] mg/dL [facility] Comment: Supplemental ranges: <140 mg/dL before meals <180 mg/dL all other times of the day Specimen Anatomical Collection Method Collection Time Receive d Time (Source) Location / / Volume Laterality Blood specimen 08/12/2017 7:40 PM 018 7:40 (specimen) EST PM EST Yonathan Smith MD POINT OF CARE TEST ORDERABLE S Performing Organization Address City/State/ZIP Code Phon e Number [address] POCT Glucose (08/12/2017 4:24 PM EST) athologist Signature POC Glucose 161 65 - 199 [facility] mg/dL [facility] Comment: Supplemental ranges: <140 mg/dL before meals <180 mg/dL all other times of the day Specimen Anatomical Collection Method Collection Time Receive d Time (Source) Location / / Volume Laterality Blood specimen 08/12/2017 4:24 PM 018 4:24 (specimen) EST PM EST Yonathan Smith MD POINT OF CARE TEST ORDERABLE S Performing Organization Address City/State/[place] [address] POCT Glucose (08/12/2017 12:00 PM EST) athologist Signature POC Glucose 167 65 - 199 [place] [facility] mg/dL [facility] Comment: Supplemental ranges: <140 mg/dL before meals <180 mg/dL all other times of the day Specimen Anatomical Collection Method Collection Time Receive d Time (Source) Location / / Volume Laterality Blood specimen 08/12/2017 12:00 8 (specimen) PM EST 12:00 PM EST Yonathan Smith MD POINT OF CARE TEST ORDERABLE S Performing Organization Address City/State/[place] [address] POCT Glucose (08/12/2017 7:25 AM EST) P athologist Signature POC Glucose 152 65 - 199 [facility] mg/dL [facility] Comment: Supplemental ranges: <140 mg/dL before meals <180 mg/dL all other times of the day Specimen Anatomical Collection Method Collection Time Receive d Time (Source) Location / / Volume Laterality Blood specimen 08/12/2017 7:25 AM 018 7:25 (specimen) EST AM EST Yonathan Smith MD POINT OF CARE TEST ORDERABLE S Performing Organization Address City/State/Z[place] [address] (ABNORMAL) Differential, Automated (08/12/2017 6:29 AM EST) Patholo gist Method Time Signature Neutrophils % 78.7 % [facility] Neutr Abs (ANC) 7.94 (H) 1.70 - [facility] 6.10 [facility] x10(3)/[facility] LABORATORY Lymphocytes % 8.8 % [facility] Lymphocytes Abs 0.9 0.9 - 3.2 [facility] x10(3)/[facility] LABORATORY Monocytes % 7.8 % [facility] Monocyte Abs 0.8 0.3 - 0.9 [facility] x10(3)/[facility] LABORATORY Eosinophils % 3.9 % [facility] Eosinophils Abs 0.4 0.0 - 0.4 [facility] x10(3)/[facility] LABORATORY Basophils % 0.3 % [facility] Basophils Abs 0.0 0.0 - 0.1 [facility] x10(3)/[facility] LABORATORY Immature Gran % 0.50 [...] Organization Address City/State/[place] [address] (ABNORMAL) Hemogram (08/12/2017 6:29 AM EST) Analysis Performed At Patho logist Time Signature WBC 10.1 (H) 4.0 - 9.5 [facility] x10(3)/[facility] LABORATORY RBC 3.02 (L) 4.58 - [facility] 5.54 [facility] x10(6)/[facility] LABORATORY Hemoglobin 8.7 (L) 13.7 - [facility] 16.5 gm/dL [facility] Hematocrit 28.1 (L) 40.5 - [facility] 48.5 % [facility] MCV 93.0 82.9 - [facility] 93.1 [facility] LABORATORY MCH 28.8 27.5 - [facility] 32.1 pg [facility] MCHC 31.0 (L) 32.0 - [facility] 35.7 gm/dL [facility] Platelets 223 145 - 357 [facility] x10(3)/[facility] LABORATORY RDWSD 56.1 (H) 36.0 - [facility] 45.0 [facility] LABORATORY RDWCV 16.4 (H) 11.4 - [facility] SU 13.8 % [facility] MPV 9.0 7.6 - 12.9 [facility] LABORATORY nRBC % Auto 0.0 % [facility] nRBC Abs Auto 0.000 0.000 - [facility] SU 0.000 [facility] x10(3)/[facility] LABORATORY Specimen Anatomical Collection Method Collection Time Receive d Time (Source) Location / / Volume Laterality Blood specimen 08/12/2017 6:29 AM 018 6:38 (specimen) EST AM EST Resulting Agency Comment Spec In Lab Yonathan Smith MD HEMATOLOGY ORDERABLES Performing Organization Address City/[facility]/[place] [address] (ABNORMAL) Prothrombin Time (08/12/2017 [...] [facility]/[place] [address] (ABNORMAL) Basic Metabolic Panel (non-fasting) (08/12/2017 6:29 AM EST) athologist Signature Glucose Lvl 151 65 - 199 [facility] mg/dL [facility] Comment: [...] or in patients with acute kidney failure. [email or web address] Specimen Anatomical Collection Method Collection Time Receive d Time (Source) Location / / Volume Laterality Blood specimen 08/12/2017 6:29 AM 018 6:38 (specimen) EST AM EST Resulting Agency Comment Spec In Lab Yonathan Smith MD CHEMISTRY ORDERABLES Performing Organization Address City/[facility]/ZIP Code Phon e Number [address] POCT Glucose (08/12/2017 4:08 AM EST) athologist Signature POC Glucose 181 65 - 199 [facility] Comment: Supplemental ranges: [...] [facility]/[place] [address] (ABNORMAL) POCT Glucose (08/12/2017 12:17 AM EST) athologist Signature POC Glucose 221 (H) 65 - 199 [facility] mg/dL [facility] Comment: Supplemental ranges: <140 mg/dL before meals <180 mg/dL all other times of the day Specimen Anatomical Collection Method Collection Time Receive d Time (Source) Location / / Volume Laterality Blood specimen 08/12/2017 12:17 8 (specimen) AM EST 12:17 AM EST Yonathan Smith MD POINT OF CARE TEST ORDERABLE S Performing Organization Address City/State/[place] [address] (ABNORMAL) POCT Glucose (08/11/2017 8:52 PM EST) athologist Signature POC Glucose 221 (H) 65 - 199 [facility] mg/dL [facility] Comment: Supplemental ranges: [...] [facility]/[place] [address] POCT Glucose (08/11/2017 5:59 PM EST) athologist Signature POC Glucose 169 65 - 199 [facility] mg/dL [facility] Comment: Supplemental ranges: <140 mg/dL before meals <180 mg/dL all other times of the day Specimen Anatomical Collection Method Collection Time Receive d Time (Source) Location / / Volume Laterality Blood specimen 08/11/2017 5:59 PM 018 5:59 (specimen) EST PM EST Yonathan Smith MD POINT OF CARE TEST ORDERABLE S Performing Organization Address City/State/[place] [address] (ABNORMAL) POCT Glucose (08/11/2017 4:08 PM EST) athologist Signature POC Glucose 240 (H) 65 - 199 [facility] mg/dL [facility] Comment: Supplemental ranges: <140 mg/dL before meals <180 mg/dL all other times of the day Specimen Anatomical Collection Method Collection Time Receive d Time (Source) Location / / Volume Laterality Blood specimen 08/11/2017 4:08 PM 018 4:08 (specimen) EST PM EST Yonathan Smith MD POINT OF CARE TEST ORDERABLE S Performing Organization Address City/State/ZIP Code Phon e Number [address] POCT Glucose (08/11/2017 12:04 PM EST) athologist Signature POC Glucose 182 65 - 199 [facility] mg/dL [facility] Comment: Supplemental ranges: [...] [facility]/[place] [address] POCT Glucose (08/11/2017 7:31 AM EST) athologist Signature POC Glucose 156 65 - 199 [facility] mg/dL [facility] Comment: Supplemental ranges: <140 mg/dL before meals <180 mg/dL all other times of the day Specimen Anatomical Collection Method Collection Time Receive d Time (Source) Location / / Volume Laterality Blood specimen 08/11/2017 7:31 AM 018 7:31 (specimen) EST AM EST Yonathan Smith MD POINT OF CARE TEST ORDERABLE S Performing Organization Address City/State/ZIP Code Phon e Number [address] (ABNORMAL) Differential, Automated (08/11/2017 6:16 AM EST) [facility] gist Method Time Signature Neutrophils % 83.7 % [facility] Neutr Abs (ANC) 10.76 (H) 1.70 - [facility] 6.10 [facility] x10(3)/[facility] L LABORATORY Lymphocytes % 6.0 % [facility] Lymphocytes Abs 0.8 (L) 0.9 - 3.2 [facility] x10(3)/[facility] LABORATORY Monocytes % 7.5 % [facility] Monocyte Abs 1.0 (H) 0.3 - 0.9 [facility] x10(3)/[facility] LABORATORY Eosinophils % 2.0 % [facility] Eosinophils Abs 0.3 0.0 - 0.4 [facility] x10(3)/[facility] LABORATORY Basophils % 0.3 % [facility] Basophils Abs 0.0 0.0 - 0.1 [facility] x10(3)/[facility] LABORATORY Immature Gran % 0.50 [...] Organization Address City/State/[place] [address] (ABNORMAL) Hemogram (08/11/2017 6:16 AM EST) Analysis Performed At Patho logist Time Signature WBC 12.9 (H) 4.0 - 9.5 [facility] x10(3)/[facility] LABORATORY RBC 3.28 (L) 4.58 - [facility] 5.54 [facility] x10(6)/[facility] LABORATORY Hemoglobin 9.5 (L) 13.7 - [facility] 16.5 gm/dL [facility] Hematocrit 29.8 (L) 40.5 - [facility] 48.5 % [facility] MCV 90.9 82.9 - [facility] 93.1 [facility] LABORATORY MCH 29.0 27.5 - [facility] 32.1 [facility] LABORATORY MCHC 31.9 (L) 32.0 - [facility] 35.7 gm/dL [facility] Platelets 236 145 - 357 [facility] x10(3)/[facility] LABORATORY RDWSD 53.5 (H) 36.0 - [facility] 45.0 [facility] LABORATORY RDWCV 16.3 (H) 11.4 - [facility] 13.8 % [facility] MPV 8.8 7.6 - 12.9 [facility] nRBC % Auto 0.0 % [facility] nRBC Abs Auto 0.000 0.000 - [facility] 0.000 [facility] x10(3)/[facility] LABORATORY Specimen Anatomical Collection Method Collection Time Receive d Time (Source) Location / / Volume Laterality Blood specimen 08/11/2017 6:16 AM 018 6:24 (specimen) EST AM EST Resulting Agency Comment Spec In Lab Yonathan Smith MD HEMATOLOGY ORDERABLES Performing Organization Address City/State/ZIP Code Phon e Number [place] [id number] HOSPITAL LABORATORY Drive (ABNORMAL) Prothrombin Time (08/11/2017 [...] Organization Address City/State/[place] [address] Basic Metabolic Panel (non-fasting) (08/11/2017 6:16 AM EST) P athologist Signature Glucose Lvl 139 65 - 199 [facility] mg/dL [facility] Comment: [...] or in patients with acute kidney failure. [email or web address] Specimen Anatomical Collection Method Collection Time Receive d Time (Source) Location / / Volume Laterality Blood specimen 08/11/2017 6:16 AM 018 6:24 (specimen) EST AM EST Resulting Agency Comment Spec In Lab Yonathan Smith MD CHEMISTRY ORDERABLES Performing Organization Address City/State/ZIP Code Phon e Number [address] POCT Glucose (08/11/2017 4:07 AM EST) athologist Signature POC Glucose 162 65 - 199 [facility] mg/dL [facility] Comment: Supplemental ranges: [...] [facility]/ZIP Code Phon e Number [place] [address] POCT Glucose (08/10/2017 11:59 PM EST) athologist Signature POC Glucose 166 65 - 199 [facility] mg/dL [facility] Comment: Supplemental ranges: [...] [facility]/ZIP Code Phon e Number [place] [address] POCT Glucose (08/10/2017 8:12 PM EST) athologist Signature POC Glucose 156 65 - 199 [facility] mg/dL [facility] Comment: Supplemental ranges: <140 mg/dL before meals <180 mg/dL all other times of the day Specimen Anatomical Collection Method Collection Time Receive d Time (Source) Location / / Volume Laterality Blood specimen 08/10/2017 8:12 PM 018 8:12 (specimen) EST PM EST Yonathan Smith MD POINT OF CARE TEST ORDERABLE S Performing Organization Address City/State/[place] [address] (ABNORMAL) POCT Glucose (08/10/2017 4:42 PM EST) P athologist Signature POC Glucose 211 (H) 65 - 199 [facility] mg/dL [facility] Comment: Supplemental ranges: <140 mg/dL before meals <180 mg/dL all other times of the day Specimen Anatomical Collection Method Collection Time Receive d Time (Source) Location / / Volume Laterality Blood specimen 08/10/2017 4:42 PM 018 4:42 (specimen) EST PM EST Yonathan Smith MD POINT OF CARE TEST ORDERABLE S Performing Organization Address City/State/ZIP Code Phon e Number [address] (ABNORMAL) Differential, Automated (08/10/2017 2:30 PM EST) Patholo gist Method Time Signature Neutrophils % 87.6 % [facility] Neutr Abs (ANC) 9.90 (H) 1.70 - [facility] 6.10 [facility] x10(3)/[facility] LABORATORY Lymphocytes % 4.3 % [facility] Lymphocytes Abs 0.5 (L) 0.9 - 3.2 [facility] x10(3)/[facility] LABORATORY Monocytes % 6.0 % [facility] Monocyte Abs 0.7 0.3 - 0.9 [facility] x10(3)/[facility] LABORATORY Eosinophils % 1.1 % [facility] Eosinophils Abs 0.1 0.0 - 0.4 [facility] x10(3)/[facility] LABORATORY Basophils % 0.4 % [facility] Basophils Abs 0.0 0.0 - 0.1 [facility] x10(3)/[facility] LABORATORY Immature Gran [...] Organization Address City/State/[place] [address] (ABNORMAL) Hemogram (08/10/2017 2:30 PM EST) Analysis Performed At Patho logist Time Signature WBC 11.3 (H) 4.0 - 9.5 [facility] x10(3)/[facility] LABORATORY RBC 3.13 (L) 4.58 - [facility] 5.54 [facility] x10(6)/[facility] LABORATORY Hemoglobin 8.9 (L) 13.7 - [facility] 16[facility] gm/dL [facility] Hematocrit 28.4 (L) 40.5 - [facility] 48.5 % [facility] MCV 90.7 82.9 - [facility] 93.1 [facility] LABORATORY MCH 28.4 27.5 - [facility] 32.1 pg [facility] MCHC 31.3 (L) 32.0 - [facility] 35.7 gm/dL [facility] Platelets 213 145 - 357 [facility] x10(3)/[facility] LABORATORY RDWSD 53.7 (H) 36.0 - [facility] 45.0 [facility] LABORATORY RDWCV 16.4 (H) 11.4 - [facility] 13.8 % [facility] MPV 8.9 7.6 - 12.9 [facility] LABORATORY nRBC % Auto 0.0 % [facility] nRBC Abs Auto 0.000 0.000 - [facility] 0.000 [facility] x10(3)/[facility] LABORATORY Specimen Anatomical Collection Method Collection Time Receive d Time (Source) Location / / Volume Laterality Blood specimen 08/10/2017 2:30 PM 018 2:48 (specimen) EST PM EST Resulting Agency Comment Spec In Lab Yonathan Smith MD HEMATOLOGY ORDERABLES Performing Organization Address City/State/[place] [address] (ABNORMAL) POCT Glucose (08/10/2017 1:50 PM EST) athologist Signature POC Glucose 243 (H) 65 - 199 [facility] mg/dL [facility] Comment: Supplemental ranges: [...] [facility]/[place] [address] POCT Glucose (08/10/2017 11:21 AM EST) athologist Signature POC Glucose 156 65 - 199 [facility] mg/dL [facility] Comment: Supplemental ranges: <140 mg/dL before meals <180 mg/dL all other times of the day Specimen Anatomical Collection Method Collection Time Receive d Time (Source) Location / / Volume Laterality Blood specimen 08/10/2017 11:21 8 (specimen) AM EST 11:21 AM EST Yonathan Smith MD POINT OF CARE TEST ORDERABLE S Performing Organization Address City/State/[place] [address] (ABNORMAL) Differential, Automated (08/10/2017 10:28 AM EST) [facility] gist Method Time Signature Neutrophils % 85.3 % [facility] Neutr Abs (ANC) 9.43 (H) 1.70 - [facility] 6.10 [facility] x10(3)/[facility] LABORATORY Lymphocytes % 5.5 % [facility] Lymphocytes Abs 0.6 (L) 0.9 - 3.2 [facility] x10(3)/[facility] LABORATORY Monocytes % 5.9 % [facility] Monocyte Abs 0.6 0.3 - 0.9 [facility] x10(3)/[facility] LABORATORY Eosinophils % 2.1 % [facility] Eosinophils Abs 0.2 0.0 - 0.4 [facility] x10(3)/[facility] LABORATORY Basophils % 0.4 % [facility] Basophils Abs 0.0 0.0 - 0.1 [facility] x10(3)/[facility] LABORATORY Immature Gran % 0.80 [...] Organization Address City/State/Z[place] [address] (ABNORMAL) Hemogram (08/10/2017 10:28 AM EST) Analysis Performed At Patho logist Time Signature WBC 11.0 (H) 4.0 - 9.5 [facility] x10(3)/[facility] LABORATORY RBC 3.02 (L) 4.58 - [facility] 5.54 [facility] x10(6)/[facility] LABORATORY Hemoglobin 8.8 (L) 13.7 - [facility] 16.5 gm/dL [facility] Hematocrit 28.1 (L) 40.5 - [facility] 48.5 % [facility] MCV 93.0 82.9 - [facility] 93.1 [facility] LABORATORY MCH 29.1 27.5 - [facility] 32.1 pg [facility] MCHC 31.3 (L) 32.0 - [facility] 35.7 gm/dL [facility] Platelets 207 145 - 357 [facility] x10(3)/[facility] LABORATORY RDWSD 55.3 (H) 36.0 - [facility] 45.0 [facility] LABORATORY RDWCV 16.4 (H) 11.4 - [facility] 13.8 % [facility] MPV 9.0 7.6 - 12.9 [facility] LABORATORY nRBC % Auto 0.0 % [facility] nRBC Abs Auto 0.000 0.000 - [facility] 0.000 [facility] x10(3)/[facility] LABORATORY Specimen Anatomical Collection Method Collection Time Receive d Time (Source) Location / / Volume Laterality Blood specimen 08/10/2017 10:28 8 (specimen) AM EST 10:35 AM EST Resulting Agency Comment Spec In Lab Yonathan Smith MD HEMATOLOGY ORDERABLES Performing Organization Address City/State/ZIP Code Phon e Number [place] [id number] HOSPITAL LAB[address]ORY Drive VS Angiogram/intervention (vascular) (08/10/2017 [...] 5. Completion RLE angiogram 6. L BUCKLE GLUER angiogram 7. 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 L BUCKLE GLUER access in the distal L BUCKLE GLUER. - Closure device: Mynx Technical Procedure: ?The [...] for a 45cm 5F Destination. V18 and [place] a nd QuickCross catheters were used to [...] Access appeared in the distal R BUCKLE GLUER. Closure and sheath removal was performed with [...] 5. Completion RLE angiogram 6. L BUCKLE GLUER angiogram 7. 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 L BUCKLE GLUER access in the distal L BUCKLE GLUER. - Closure device: Mynx Technical Procedure: The [...] for a 45cm 5F Destination. V18 and [place] a nd QuickCross catheters were used to [...] Access appeared in the distal R BUCKLE GLUER. Closure and sheath removal was performed with [...] (08/10/2017 5:50 AM EST) [facility] Method Time Signature Neutrophils % 80.1 % [facility] LABORATORY Neutr Abs (ANC) 9.01 (H) 1.70 - [facility] 6.10 [facility] x10(3)/[facility] LABORATORY Lymphocytes % 8.8 % [facility]ORATORY Lymphocytes Abs 1.0 0.9 - 3.2 [facility] x[facility](3[facility] LABORATORY Monocytes % 8.3 % [facility] Monocyte Abs 0.9 0.3 - 0.9 [facility] x[facility](3[facility] LABORATORY Eosinophils % 2.0 % [facility] Eosinophils Abs 0.2 0.0 - 0.4 [facility] x10(3)/[facility] LABORATORY Basophils % 0.4 % [facility] Basophils Abs 0.0 0.0 - 0.1 [facility] x10(3)/[facility] LABORATORY Immature Gran [...] Organization Address City/State/[place] [address] (ABNORMAL) Hemogram (08/10/2017 5:50 AM EST) Analysis Performed At Patho logist Time Signature WBC 11.3 (H) 4.0 - 9.5 [facility] x10(3)/[facility] LABORATORY RBC 3.15 (L) 4.58 - [facility] 5.54 [facility] x10(6)/[facility] LABORATORY Hemoglobin 8.9 (L) 13.7 - [facility] 16.5 gm/dL [facility] Hematocrit 29.0 (L) 40.5 - [facility] 48.5 % [facility] MCV 92.1 82.9 - [facility] 93.1 [facility] LABORATORY MCH 28.3 27.5 - [facility] 32.1 pg [facility] MCHC 30.7 (L) 32.0 - [facility] 35.7 gm/dL [facility] Platelets 231 145 - 357 [facility] x10(3)/[facility] LABORATORY RDWSD 53.9 (H) 36.0 - [facility] 45.0 [facility] LABORATORY RDWCV 16.2 (H) 11.4 - [facility] SU 13.8 % [facility] MPV 8.7 7.6 - 12.9 [facility] LABORATORY nRBC % Auto 0.0 % [facility] nRBC Abs Auto 0.000 0.000 - [facility] 0.000 [facility] x10(3)/[facility] LABORATORY Specimen Anatomical Collection Method Collection Time Receive d Time (Source) Location / / Volume Laterality Blood specimen 08/10/2017 5:50 AM 018 5:59 (specimen) EST AM EST Resulting Agency Comment Spec In Lab Yonathan Smith MD HEMATOLOGY ORDERABLES Performing Organization Address City/State/[place] [address] (ABNORMAL) Basic Metabolic Panel (non-fasting) (08/10/2017 5:50 AM EST) P athologist Signature Glucose Lvl 135 65 - 199 [facility] mg/dL [facility] Comment: [...] or in patients with acute kidney failure. [email or web address] Specimen Anatomical Collection Method Collection Time Receive d Time (Source) Location / / Volume Laterality Blood specimen 08/10/2017 5:50 AM 018 5:59 (specimen) EST AM EST Resulting Agency Comment Spec In Lab Yonathan Smith MD CHEMISTRY ORDERABLES Performing Organization Address [facility] [place] [address] (ABNORMAL) Prothrombin Time (08/10/2017 [...] Organization Address City/[facility] [place] [address] (ABNORMAL) POCT Glucose (08/10/2017 4:01 AM EST) athologist Signature POC Glucose 206 (H) 65 - 199 [facility] mg/dL [facility] LABORATORY Comment: Supplemental ranges: <140 mg/dL before meals <180 mg/dL all other times of the day Specimen Anatomical Collection Method Collection Time Receive d Time (Source) Location / / Volume Laterality Blood specimen 08/10/2017 4:01 AM 018 4:01 (specimen) EST AM EST Yonathan Smith MD POINT OF CARE TEST ORDERABLE S Performing Organization Address City/State/[place] [address] POCT Glucose (08/10/2017 2:01 AM EST) athologist Signature POC Glucose 188 65 - 199 [facility] mg/dL [facility] Comment: Supplemental ranges: [...] [facility]/[place] [address] (ABNORMAL) POCT Glucose (08/09/2017 11:42 PM EST) athologist Signature POC Glucose 283 (H) 65 - 199 [facility] mg/dL [facility] Comment: Supplemental ranges: <140 mg/dL before meals <180 mg/dL all other times of the day Specimen Anatomical Collection Method Collection Time Receive d Time (Source) Location / / Volume Laterality Blood specimen 08/09/2017 11:42 8 (specimen) PM EST 11:42 PM EST Yonathan Smith MD POINT OF CARE TEST ORDERABLE S Performing Organization Address City/State/[place] [address] POCT Glucose (08/09/2017 8:55 PM EST) athologist Signature POC Glucose 182 65 - 199 [facility] mg/dL [facility] Comment: Supplemental ranges: [...] [facility]/[place] [address] (ABNORMAL) APTT (08/09/2017 6:42 [...] [facility]/[place] [address] POCT Glucose (08/09/2017 4:41 PM EST) athologist Signature POC Glucose 195 65 - 199 [facility] mg/dL [facility] Comment: Supplemental ranges: [...] [facility]/[place] [address] POCT Glucose (08/09/2017 12:29 PM EST) athologist Signature POC Glucose 140 65 - 199 [facility] mg/dL [facility] Comment: Supplemental ranges: <140 mg/dL before meals <180 mg/dL all other times of the day Specimen Anatomical Collection Method Collection Time Receive d Time (Source) Location / / Volume Laterality Blood specimen 08/09/2017 12:29 8 (specimen) PM EST 12:29 PM EST Yonathan Smith MD POINT OF CARE TEST ORDERABLE S Performing Organization Address [facility]/ZIP Code Phon e Number [address] POCT Glucose (08/09/2017 9:59 AM EST) P athologist Signature POC Glucose 135 65 - 199 [facility] mg/dL [facility] Comment: Supplemental ranges: <140 mg/dL before meals <180 mg/dL all other times of the day Specimen Anatomical Collection Method Collection Time Receive d Time (Source) Location / / Volume Laterality Blood specimen 08/09/2017 9:59 AM 018 9:59 (specimen) EST AM EST Yonathan Smith MD POINT OF CARE TEST ORDERABLE S Performing Organization Address [facility]/[place] [address] Specimen to Pathology (08/09/2017 [...] [facility]/[place] [address] Surgical Pathology Report (08/09/2017 8:40 AM EST) Component Value Ref Test Analysis Performed At Patholo gist Range Method Time Signature Surgical [id number] ? Location: [facility]; [facility]; A [facility] Report The signing pathologist has [...] Verified: ??08/13/2017 ?Pathologist Performed at: ??-[facility] [place], [place], [place] CLINICAL INFORMATION Specimen Submitted: A - [...] Organization Address City/State/[place] [address] Anaerobic Culture (08/09/2017 8:30 AM EST) [facility] Method Time Signature Anaerobic No anaerobic [facility] Culture organisms [facility] LABORATORY Specimen Anatomical Collection [...] [facility]/[place] [address] (ABNORMAL) Abscess/Wound Aspirate Culture (08/09/2017 8:30 AM EST) [facility] Genomas Method Time Signature Abscess/Wound Moderate mixed [facility] Aspirate bacterial [place] Culture morphotypes [facility] normal LABORATORY cutaneous leroy (A) Gram Stain Rare White Blood Cells [place] Few Gram Positive Cocci in pairs [place] () [facility] Organism Gram Positive [place] Cocci in pairs [place] () [facility] LABORATORY Specimen Anatomical Collection [...] [facility]/ZIP Code [place] [address] POCT Glucose (08/09/2017 4:28 AM EST) P athologist Signature POC Glucose 128 65 - 199 [facility] mg/dL [facility] Comment: Supplemental ranges: <140 mg/dL before meals <180 mg/dL all other times of the day Specimen Anatomical Collection Method Collection Time Receive d Time (Source) Location / / Volume Laterality Blood specimen 08/09/2017 4:28 AM 018 4:28 (specimen) EST AM EST Yonathan Smith MD POINT OF CARE TEST ORDERABLE S Performing Organization Address City/State/[place] [address] ABORH Recheck Status (08/09/2017 1:10 AM EST) [facility] Method Time Signature ABORH Type Completed [facility] LABORATORY Specimen Anatomical Collection Method Collection Time Receive d Time (Source) Location / / Volume Laterality Blood specimen 08/09/2017 1:10 AM 018 1:35 (specimen) EST AM EST Resulting Agency Comment Spec In Lab Yonathan Smith MD BLOOD BANK ORDERABLES Performing Organization Address City/State/[place] [address] Antibody screen (08/09/2017 1:10 AM EST) [facility] Method [place] Signature Ab Screen Negative [facility] LABORATORY Expires at 08/12/2017 [facility] [id number] on: [facility] LABORATORY Specimen Anatomical Collection Method Collection Time Receive d Time (Source) Location / / Volume Laterality Blood specimen 08/09/2017 1:10 AM 018 1:35 (specimen) EST AM EST Resulting Agency Comment Spec In Lab Yonathan Smith MD BLOOD BANK ORDERABLES Performing Organization Address City/State/[place] [address] ABO/Rh Typing (08/09/2017 1:10 [...] Address City/State/[place] [address] (ABNORMAL) APTT (08/09/2017 1:10 [...] Organization Address City/State/[place] [address] (ABNORMAL) Differential, Automated (08/09/2017 1:10 AM EST) [facility] Method Time Signature Neutrophils % 76.2 % [facility] LABORATORY Neutr Abs (ANC) 8.59 (H) 1.70 - [facility] 6.10 [facility] x10(3)/[facility] LABORATORY Lymphocytes % 11.0 % [facility] LABORATORY Lymphocytes Abs 1.2 0.9 - 3.2 [facility] x10(3)/[facility] LABORATORY Monocytes % 8.4 % [facility] LABORATORY Monocyte Abs 1.0 (H) 0.3 - 0.9 [facility] x10(3)/[facility] LABORATORY Eosinophils % 3.5 % [facility] LABORATORY Eosinophils Abs 0.4 0.0 - 0.4 [facility] x10(3)/[facility] LABORATORY Basophils % 0.5 % [facility] LABORATORY Basophils Abs 0.1 0.0 - 0.1 [facility] x10(3)/[facility] LABORATORY Immature Gran [...] Organization Address City/State/[place] [address] (ABNORMAL) Hemogram (08/09/2017 1:10 AM EST) Analysis Performed At Patho logist Time Signature WBC 11.3 (H) 4.0 - 9.5 [facility] x10(3)/[facility] LABORATORY RBC 3.47 (L) 4.58 - [facility] 5.54 [facility] x10(6)/[facility] LABORATORY Hemoglobin 10.0 (L) 13.7 - [facility] 16.5 gm/dL [facility] Hematocrit 31.9 (L) 40.5 - [facility] 48.5 % [facility] LAB[facility]AT[facility] MCV 91.9 82.9 - [facility] 93.1 [facility] LABORATORY MCH 28.8 27.5 - [facility] 32.1 pg [facility] LABORATORY MCHC 31.3 (L) 32.0 - [facility] 35.7 gm/dL [facility] LABORATORY Platelets 234 145 - 357 [facility] x10(3)/[facility] LABORATORY RDWSD 54.0 (H) 36.0 - [facility] SU 45.0 [facility] LABORATORY RDWCV 16.2 (H) 11.4 - [facility] SU 13.8 % [facility] LABORATORY MPV 8.7 7.6 - 12.9 [facility] LABORATORY nRBC % Auto 0.0 % [facility] LABORATORY nRBC Abs Auto 0.000 0.000 - [facility] SU 0.000 [facility] x10(3)/[facility] LABORATORY Specimen Anatomical Collection Method Collection Time Receive d Time (Source) Location / / Volume Laterality Blood specimen 08/09/2017 1:10 AM 018 1:19 (specimen) EST AM EST Resulting Agency Comment Spec In Lab Yonathan Smith MD HEMATOLOGY ORDERABLES Performing Organization Address City/[facility]/[place] [address] (ABNORMAL) Prothrombin Time (08/09/2017 [...] [facility]/[place] [address] (ABNORMAL) Basic Metabolic Panel (non-fasting) (08/09/2017 1:10 AM EST) P athologist Signature Glucose Lvl 108 65 - 199 [facility] mg/dL [facility]OR[facility] Comment: [...] or in patients with acute kidney failure. [email or web address] [email or web address] Specimen Anatomical Collection Method Collection Time Receive d Time (Source) Location / / Volume Laterality Blood specimen 08/09/2017 1:10 AM 018 1:19 (specimen) EST AM EST Resulting Agency Comment Spec In Lab Yonathan mSith MD CHEMISTRY ORDERABLES Performing Organization Address City/State/ZIP Code Phon e Number [address] POCT Glucose (08/09/2017 12:05 AM EST) athologist Signature POC Glucose 128 65 - 199 [facility] mg/dL [facility] Comment: Supplemental ranges: [...] [facility]/[place] [address] (ABNORMAL) POCT Glucose (08/08/2017 7:36 PM EST) athologist Signature POC Glucose 215 (H) 65 - 199 [facility] mg/dL [facility] Comment: Supplemental ranges: <140 mg/dL before meals <180 mg/dL all other times of the day Specimen Anatomical Collection Method Collection Time Receive d Time (Source) Location / / Volume Laterality Blood specimen 08/08/2017 7:36 PM 018 7:36 (specimen) EST PM EST Yonathan Smith MD POINT OF CARE TEST ORDERABLE S Performing Organization Address City/State/[place] [address] (ABNORMAL) POCT Glucose (08/08/2017 6:23 PM EST) P athologist Signature POC Glucose 216 (H) 65 - 199 [facility] mg/dL [facility] Comment: Supplemental ranges: [...] [facility]/[place] [address] (ABNORMAL) APTT (08/08/2017 6:00 [...] [facility]/[place] [address] POCT Glucose (08/08/2017 4:42 PM EST) athologist Signature POC Glucose 78 65 - 199 [facility] mg/dL [facility] Comment: Supplemental ranges: <140 mg/dL before meals <180 mg/dL all other times of the day Specimen Anatomical Collection Method Collection Time Receive d Time (Source) Location / / Volume Laterality Blood specimen 08/08/2017 4:42 PM 018 4:42 (specimen) EST PM EST Yonathan Smith MD POINT OF CARE TEST ORDERABLE S Performing Organization Address City/State/[place] [address] (ABNORMAL) POCT Glucose (08/08/2017 4:01 PM EST) athologist Signature POC Glucose 58 (L) 65 - 199 [facility] mg/dL [facility] Comment: Supplemental ranges: <140 mg/dL before meals <180 mg/dL all other times of the day Specimen Anatomical Collection Method Collection Time Receive d Time (Source) Location / / Volume Laterality Blood specimen 08/08/2017 4:01 PM 018 4:01 (specimen) EST PM EST Yonathan Smith MD POINT OF CARE TEST ORDERABLE S Performing Organization Address City/State/[place] [address] POCT Glucose (08/08/2017 11:51 AM EST) athologist Signature POC Glucose 90 65 - 199 [facility] mg/dL [facility] Comment: Supplemental ranges: <140 mg/dL before meals <180 mg/dL all other times of the day Specimen Anatomical Collection Method Collection Time Receive d Time (Source) Location / / Volume Laterality Blood specimen 08/08/2017 11:51 8 (specimen) AM EST 11:51 AM EST Yonathan Smith MD POINT OF CARE TEST ORDERABLE S Performing Organization Address City/State/[place] [address] (ABNORMAL) APTT (08/08/2017 10:27 [...] Address City/State/ZIP Code Phon e Number [address] POCT Glucose (08/08/2017 8:02 AM EST) athologist Signature POC Glucose 178 65 - 199 [facility] mg/dL [facility] Comment: Supplemental ranges: [...] [facility]/[place] [address] (ABNORMAL) APTT (08/08/2017 4:51 AM EST) athologist Signature PTT >160 25 - 35 [facility] (Critical) sec [facility] Comment: Called by: HOWARD, Read [...] Organization Address City/State/[place] [address] (ABNORMAL) Differential, Automated (08/08/2017 4:51 AM EST) [facility] gist Method Time Signature Neutrophils % 77.9 % [facility] LABORATORY Neutr Abs (ANC) 8.17 (H) 1.70 - [facility] 6.10 [facility] x10(3)/[facility] LABORATORY Lymphocytes % 10.3 % [facility] LABORATORY Lymphocytes Abs 1.1 0.9 - 3.2 [facility] x10(3)/[facility] LABORATORY Monocytes % 7.0 % [facility] LABORATORY Monocyte Abs 0.7 0.3 - 0.9 [facility] x10(3)/[facility] LABORATORY Eosinophils % 3.6 % [facility] LABORATORY Eosinophils Abs 0.4 0.0 - 0.4 [facility] x10(3)/[facility] LABORATORY Basophils % 0.5 % [facility] LABORATORY Basophils Abs 0.0 0.0 - 0.1 [facility] x10(3)/[facility] LABORATORY Immature Gran [...] Address City/State/[place] [address] (ABNORMAL) Hemogram (08/08/2017 4:51 AM EST) Analysis Performed At Patho logist Time Signature WBC 10.5 (H) 4.0 - 9.5 [facility] x[facility](3[facility] LABORATORY RBC 3.27 (L) 4.58 - [facility] 5.54 [facility] x10(6)/[facility] LABORATORY Hemoglobin 9.3 (L) 13.7 - [facility] 16.5 gm/dL [facility] LABOR[facility]ORY Hematocrit 30.3 (L) 40.5 - [facility] 48.5 % [facility] LABORATORY MCV 92.7 82.9 - [facility] 93.1 [facility] LABORATORY MCH 28.4 27.5 - [facility] 32.1 pg [facility]ORAT[facility] MCHC 30.7 (L) 32.0 - [facility] 35.7 gm/dL [facility]OR[facility] Platelets 252 145 - 357 [facility] x10(3)/[facility] LABORATORY RDWSD 54.6 (H) 36.0 - [facility] 45.0 [facility] LABORATORY RDWCV 16.2 (H) 11.4 - [facility] 13.8 % [facility] LABORATORY MPV 9.1 7.6 - 12.9 [facility] LABORATORY nRBC % Auto 0.0 % [facility] LABORATORY nRBC Abs Auto 0.000 0.000 - [place] 0.000 [facility] x10(3)/[facility] LABORATORY Specimen Anatomical Collection Method Collection Time Receive d Time (Source) Location / / Volume Laterality Blood specimen 08/08/2017 4:51 AM 018 5:14 (specimen) EST AM EST Resulting Agency Comment Spec In Lab Yonathan Smith MD HEMATOLOGY ORDERABLES Performing Organization Address City/State/[place] [address] (ABNORMAL) Prothrombin Time (08/08/2017 [...] Organization Address City/State/[place] [address] (ABNORMAL) Basic Metabolic Panel (non-fasting) (08/08/2017 4:51 AM EST) athologist Signature Glucose Lvl 229 (H) 65 - 199 [facility] mg/dL [facility]OR[facility] Comment: [...] or in patients with acute kidney failure. [email or web address] [email or web address]/DHMCnkf Specimen Anatomical Collection Method Collection Time Receive d Time (Source) Location / / Volume Laterality Blood specimen 08/08/2017 4:51 AM 018 5:14 (specimen) EST AM EST Resulting Agency Comment Spec In Lab Yonathan Smith MD CHEMISTRY ORDERABLES Performing Organization Address City/[facility]/ZIP Code Phon e Number [address] POCT Glucose (08/08/2017 4:20 AM EST) athologist Signature POC Glucose 193 65 - 199 [facility] mg/dL [facility] Comment: Supplemental ranges: <140 mg/dL before meals <180 mg/dL all other times of the day Specimen Anatomical Collection Method Collection Time Receive d Time (Source) Location / / Volume Laterality Blood specimen 08/08/2017 4:20 AM 018 4:20 (specimen) EST AM EST Yonathan Smith MD POINT OF CARE TEST ORDERABLE S Performing Organization Address City/State/ZIP Code Phon e Number [address] POCT Glucose (08/07/2017 11:11 PM EST) athologist Signature POC Glucose 124 65 - 199 [facility]dL [facility] Comment: Supplemental ranges: [...] [facility] [address] (ABNORMAL) APTT (08/07/2017 10:18 [...] [facility]/[place] [address] POCT Glucose (08/07/2017 8:10 PM EST) athologist Signature POC Glucose 140 65 - 199 [facility] mg/dL [facility]OR[facility] Comment: Supplemental ranges: [...] [facility]/[place] [address] POCT Glucose (08/07/2017 5:27 PM EST) athologist Signature POC Glucose 187 65 - 199 [facility] mg/dL [facility] Comment: Supplemental ranges: [...] [facility]/[place] [address] POCT Glucose (08/07/2017 3:29 PM EST) athologist Signature POC Glucose 86 65 - 199 [facility] mg/dL [facility]OR[facility] Comment: Supplemental ranges: <140 mg/dL before meals <180 mg/dL all other times of the day Specimen Anatomical Collection Method Collection Time Receive d Time (Source) Location / / Volume Laterality Blood specimen 08/07/2017 3:29 PM 018 3:29 (specimen) EST PM EST Yonathan Smith MD POINT OF CARE TEST ORDERABLE S Performing Organization Address [facility]/ZIP [facility] [place] [address] (ABNORMAL) APTT (08/07/2017 2:50 [...] Address City/[facility]/ZIP [facility] Phon e Number [address] (ABNORMAL) POCT Glucose (08/07/2017 2:23 PM EST) athologist Signature POC Glucose 55 (L) 65 - 199 [facility] mg/dL [facility] Comment: Supplemental ranges: <140 mg/dL before meals <180 mg/dL all other times of the day Specimen Anatomical Collection Method Collection Time Receive d Time (Source) Location / / Volume Laterality Blood specimen 08/07/2017 2:23 PM 018 2:23 (specimen) EST PM EST Yonathan Smith MD POINT OF CARE TEST ORDERABLE S Performing Organization Address City/State/ZIP Code Phon e Number [address] POCT Glucose (08/07/2017 12:08 PM EST) P athologist Signature POC Glucose 77 65 - 199 [facility] mg/dL [facility] Comment: Supplemental ranges: <140 mg/dL before meals <180 mg/dL all other times of the day Specimen Anatomical Collection Method Collection Time Receive d Time (Source) Location / / Volume Laterality Blood specimen 08/07/2017 12:08 8 (specimen) PM EST 12:08 PM EST Yonathan Smith MD POINT OF CARE TEST ORDERABLE S Performing Organization Address City/State/ZIP Code Phon e Number [address] (ABNORMAL) Differential, Automated (08/07/2017 7:30 AM EST) Patholo gist Method Time Signature Neutrophils % 73.8 % [facility] LABORATORY Neutr Abs (ANC) 7.17 (H) 1.70 - [facility] 6.10 [facility] x10(3)/[facility] LABORATORY Lymphocytes % 12.2 % [facility] LABORATORY Lymphocytes Abs 1.2 0.9 - 3.2 [facility] x10(3)/[facility] LABORATORY Monocytes % 9.0 % [facility] LABORATORY Monocyte Abs 0.9 0.3 - 0.9 [facility] x10(3)/[facility] LABORATORY Eosinophils % 3.9 % [facility] LABORATORY Eosinophils Abs 0.4 0.0 - 0.4 [facility] x10(3)/[facility] LABORATORY Basophils % 0.6 % [facility] LABORATORY Basophils Abs 0.1 0.0 - 0.1 [facility] x10(3)/[facility] LABORATORY Immature Gran % 0.50 [...] Organization Address City/State/Z[place] [address] (ABNORMAL) Hemogram (08/07/2017 7:30 AM EST) Analysis Performed At Patho logist Time Signature WBC 9.7 (H) 4.0 - 9.5 [facility] x10(3)/[facility] LABORATORY RBC 3.54 (L) 4.58 - [facility] 5.54 [facility] HOSPITAL x10(6)/[facility] LABORATORY Hemoglobin 9.9 (L) 13.7 - [facility] 16.5 gm/dL [facility]OR[facility] Hematocrit 32.3 (L) 40.5 - [facility] 48.5 % [facility] MCV 91.2 82.9 - [facility] 93.1 [facility] LABORATORY MCH 28.0 27.5 - [facility] 32[facility]1 pg [facility] MCHC 30.7 (L) 32.0 - [facility] 35.7 gm/dL [facility] Platelets 312 145 - 357 [facility] x10(3)/[facility] LABORATORY RDWSD 53.2 (H) 36.0 - [facility] 45.0 [facility] LABORATORY RDWCV 16.0 (H) 11.4 - [facility] 13.8 % [facility] LABORATORY MPV 8.9 7.6 - 12.9 [facility] LABORATORY nRBC % Auto 0.0 % [facility] LABORATORY nRBC Abs Auto 0.000 0.000 - [facility] 0.000 [facility] x10(3)/[facility] LABORATORY Specimen Anatomical Collection Method Collection Time Receive d Time (Source) Location / / Volume Laterality Blood specimen 08/07/2017 7:30 AM 018 7:45 (specimen) EST AM EST Resulting Agency Comment Spec In Lab Yonathan Smith MD HEMATOLOGY ORDERABLES Performing Organization Address City/State/[place] [address] (ABNORMAL) Basic Metabolic Panel (non-fasting) (08/07/2017 7:30 AM EST) P athologist Signature Glucose Lvl 80 65 - 199 [facility] mg/dL [facility]OR[facility] Comment: [...] or in patients with acute kidney failure. http://[employer]/DHnkdep http://[employer]/DHMCnkf Specimen Anatomical Collection Method Collection Time Receive d Time (Source) Location / / Volume Laterality Blood specimen 08/07/2017 7:30 AM 018 7:45 (specimen) EST AM EST Resulting Agency Comment Spec In Lab Yonathan Smith MD CHEMISTRY ORDERABLES Performing Organization Address City/[facility] Phon e Number [address] POCT Glucose (08/07/2017 7:27 AM EST) athologist Signature POC Glucose 81 65 - 199 [facility] mg/dL [facility] Comment: Supplemental ranges: <140 mg/dL before meals <180 mg/dL all other times of the day Specimen Anatomical Collection Method Collection Time Receive d Time (Source) Location / / Volume Laterality Blood specimen 08/07/2017 7:27 AM 018 7:27 (specimen) EST AM EST Yonathan Smith MD POINT OF CARE TEST ORDERABLE S Performing Organization Address [facility] Phon e Number [address] APTT (08/07/2017 7:04 AM [...] [facility]/[place] [address] (ABNORMAL) Prothrombin Time (08/07/2017 [...] Address City/State/[place] [address] POCT Glucose (08/07/2017 4:03 AM EST) athologist Signature POC Glucose 93 65 - 199 [facility] mg/dL [facility] Comment: Supplemental ranges: <140 mg/dL before meals <180 mg/dL all other times of the day Specimen Anatomical Collection Method Collection Time Receive d Time (Source) Location / / Volume Laterality Blood specimen 08/07/2017 4:03 AM 018 4:03 (specimen) EST AM EST Yonathan Smith MD POINT OF CARE TEST ORDERABLE S Performing Organization Address City/State/[place] [address] POCT Glucose (08/07/2017 12:04 AM EST) athologist Signature POC Glucose 107 65 - 199 [facility] mg/dL [facility] Comment: Supplemental ranges: <140 mg/dL before meals <180 mg/dL all other times of the day Specimen Anatomical Collection Method Collection Time Receive d Time (Source) Location / / Volume Laterality Blood specimen 08/07/2017 12:04 8 (specimen) AM EST 12:04 AM EST Yonathan Smith MD POINT OF CARE TEST ORDERABLE S Performing Organization Address City/State/ZIP Code Phon e Number [address] POCT Glucose (08/06/2017 7:56 PM EST) P athologist Signature POC Glucose 178 65 - 199 [facility] mg/dL [facility] Comment: Supplemental ranges: <140 mg/dL before meals <180 mg/dL all other times of the day Specimen Anatomical Collection Method Collection Time Receive d Time (Source) Location / / Volume Laterality Blood specimen 08/06/2017 7:56 PM 018 7:56 (specimen) EST PM EST Yonathan Smith MD POINT OF CARE TEST ORDERABLE S Performing Organization Address City/State/ZIP Code Phon e Number [address] TcPO2 (08/06/2017 2:32 PM EST) Component Value Ref Test Analysis Performed At Patholo gist Range Method Time Signature VB Text Department: Vascular Surgery Lab VASCUBASE Report Patient: [id number] (GREGORY HOAGN) CPT: 4378673 ICD10: I99.8 Referring Physician: YONATHAN SMITH ?? [...] mg 172 (Given - Prov ider: Chiquis Mgcrath RN) 171 (Given - Provider: Chiquis Mcgrath [...] Comment: BG 174)2008 (Given - Provider: Henrique Marsk, VAMSI) 1199 (Not Given - Provider: Chiquis [...] VAMSI) 0800 (G iven - Provider: Dory Trunog, RN) 2.5 mg, Oral, DAILY, First dose [...] 5 mL 0515 (Given - Provide r: Hnerique Marks RN)1733 (Given - Provider: Chiquis Mcgrath [...] 0454 (Given - P rovider: Henrique Marks RN)0884 (Given - Provider: Chiquis Mcgrath RN)1135 (Given [...] Vicente MD PCP - General 04/16/[address] [place] [address] [address] [place] [address] documented as of this encounter
--- OUTSIDE RECORDS SUMMARY | 2022-05-01 08:56 | XMS_ITS | Encounter Summary ---
:1945 Author Organization [facility] [place] [address] Care Team Providers Name Role Phone Lovely Vicente MD Primary Care Provider Encounter Details Date Type Department Care Team Description 08/09/2017 Clinical Support [place] [facility] [place]anc[place] (D-SCHED ERROR [facility] / CORRECT ION ) [place] [phone] Social History Tobacco Use Types Packs/Day [...] Dolan MD [facility] [place] [address] (Wo rk) 05/28/2022 Laboratory Appointment Lab 05/28/2022 Office Visit Cardiology Zulma Dolan MD [facility] [place] [address] Liz Poole PA [facility] [place] [address] 06/10/2022 Office Visit Dermatology Laura Scherer MD [facility] [address] [place], [place] [address] (Wo rk) documented as of this encounter Procedures Procedure Name Priority Date/Time Associated Diagnosis Comme nts TECHNICAL AGRONOMIST 08/09/2017 12:00 AM Resul ts for this SCAN EST procedure are i n the results section. documented in this encounter Results SCAN DOC: TECHNICAL AGRONOMIST (08/09/2017 12:00 AM EST) Narrative 08/09/2017 12:00 AM EST This result has an attachment that is no t available. Ordered by an unspecified provider. Scanning Provider MEDIA MGR SCAN EXT ORDR/RSLT documented in this encounter Visit Diagnoses Not on filedocumented in this encounter Care Teams Ham Clerk Relationship Specialty Start Date End Date Lovely Vicente MD PCP - General 04/16/[address] [place] [address] documented as of this encounter
--- OUTSIDE RECORDS SUMMARY | 2022-05-01 08:56 | XMS_ITS | Encounter Summary ---
:1945 Author Organization [facility] [place] [address] Care Team Providers Name Role Phone Lovely Vicente MD Primary Care Provider Reason for Visit Auth/Cert Specialty Diagnoses / Procedures Referred By Contact Refer red To Contact Diagnoses Critical lower limb ischemia CELLULITIS RT FOOT Procedures EMERGENCY Referral ID Status Reason Start Date Expiration Date Visits Requ ested Visits Authorized [id number] 1 1 Encounter Details Date Type Department Care Team Description 08/11/2017 Surgery Main Operating Room Yonathan Smith (M SURG) DRESSING CHANGE Barbara Ocampo MD (FOR OTHER THAN IVAN) [facility] UNDER ANES. 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 [...] Dorsalis Pedis (Ankle) Artery ?132 ? 0.94 ??Kern-Biphasic ? Posterior Tibial (Ankle) Artery ??154 ? 1.10 ??Kern-Biphasic ? Fourth Toe ? 67 ?0.48 ?? [...] Discharge Conditions/Prognosis: Good Discharge to: [facility] Rehab Discharge Medications: Your Medications New Medications [...] For any problems or questions please call [phone] ZELDA Smith, physical meteorologist Nurse Clinician For issues on weeknights after 5pm and weekends please call [phone] and ask for the Vascular Fellow contracts officer. General Instructions None Future Appointments and Orders Future Appointments Provider Department Dept Phone 08/26/2017 4:00 PM Aurelia Rivera PA V[facility] Surgery [facility] [place] [phone] 09/07/2017 3:00 PM LAB, THREE L Lab 3L [facility] [phone] 09/07/2017 4:00 PM Luz Prescott MD Endocrinology at [place] [phone] 09/09/2017 8:00 AM Barbra Soares APRN Pain Management [facility] [place] [phone] Please bring a list of your current [...] For any problems or questions please call [phone] ZELDA Smith, physical meteorologist Nurse Clinician For issues on weeknights after 5pm and weekends please call [phone] and ask for the Vascular Fellow contracts officer. documented in this encounter Medications at [...] Discharge Note Patient Destination: [facility] ([facility]) [address] [place] [address] Transportation: with (at bedside) Time of Discharge: by 12 noon Level of Care: swing Patient Aware: yes Family Notified: yes Md to call report to: Yissel Quintero NATURAL GAS INSPECTOR already called RN to call report to: [phone] Shirin Wolf Office of Care Management Pager [phone] Shirin Wagner RN - 08/16/2017 10:50 AM EST [facility] has offered pt swing bed. Pt and accept bed. will transport via car. NATURAL GAS INSPECTOR Yissel Quintero aware; d/c paperwork will be completed by 12 noon. [facility] requests pt arrival by 1400 today; NATURAL GAS INSPECTOR, RN, and family aware. NATURAL GAS INSPECTOR called [facility] and was told that they prefer pt to arrive with wound vac dressing applied but clamped. NATURAL GAS INSPECTOR applied new wound vac dressing. RN has [facility] number to call report. PASSR completed; NATURAL GAS INSPECTOR paged to request provider signature in highlighted space. Indigo from [facility] notified via email that home wound vac now cancelled; STORES has picked up from room and order cancelled. Packet started and provided to self contained behavior unit teacher. Medicare important message explained to patient, patient signed. Copy provided to patient and signature page to OCM for inclusion in pt EMR. Radha Georges - 08/16/2017 10:34 AM EST Office of Care Management/Carrot Tier Patient Name: Gregory Hoang : 1945 Patient has been offered a swing bed at [facility]. The patient will be transported by private transportation. No MD to MD report necessary Please call Nursing Report to [phone], ask for advertising assistant manager. Info to accompany patient: Narcotic Prescriptions Copies of Medication Administration Records and IV sheets for past 10 days. Plan: Carrot Tier will be available to the patient and Control Systems Eng-RN and/or Precision Honing Machine Operator for further assistance. Patient will be discharged to: [facility] [address] [place] [address] [id number] Radha Powers, Carrot Tier Mira Black, VAMSI - 08/15/2017 10:05 PM EST [address] Flores to ask if he wanted to hold metoprolol dose. BP 95/58. OK to hold this dose Courtney Brito - 08/15/2017 3:26 PM EST Office of Care Management(OCM)/Carrot Tier(RS)/ D/C Planning re : Patient is medically ready for d/c today. RS has been in contact with [facility] to see if they could offer a bed. [facility] is still reviewing the case and need their MD to review chart prior to accepting or declining. OCM team needs to check in with [place] tomorrow to check on status. 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 Vac in place. [...] patient's referral to: [facility] PHONE: [phone] FAX: [phone] CM spoke with RS who said that [...] rehab. Await recommendations from PT. Covering pager #[phone]. Viry Starkey MD - 08/14/2017 10:08 AM [...] 7.9* New Imaging ?? None new Assessment: Gregroy Hoang is a 72 y.o. 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 Electrical Systems Designer Kaitlin Saha, RN Pager #[phone] Payam Rosales - 08/13/2017 2:37 PM EST Production Tester Encounter Note Patient Name: Gregory Hoang : [id number] MR#: [id number] Admit Date: 08/06/2017 1:41 PM Hospital Day 7 days Narrative: Visited to introduce and assess acceptance of Production Tester services. Pt was awake, alert, oriented and in chair and family was there. Assessment:Patient coping positively with stresses of illness/hospitalization at this time. Pt says that he is hoping to get better and his family was there. Pt says that he has family care and supportand taking one day at time. Intervention and Outcome: Provided emotional support and encouraging presence. Production Tester services accepted.Conversation to build trusting relationship.Provided pastoral [...] blue toe syndrome (possibly from a right MATHEMATICS INSTRUCTOR PSA which has since thrombosed), now [...] RN - 08/12/2017 1:06 PM EST The patient/hr representative has been provided a list of Home Health Agencies/DME vendors which serve their preferred geographic area. A letter describing our affiliations was reviewed with them and theywere educated about their right to choose where referrals are placed. Patient requests referral to [facility]. PHONE: [phone] FAX: [phone]. And Home NPWT (Negative Pressure Wound Therapy) aka wound vac device made available to pt. Serial # confirmed. Reviewed [facility] Proof of Delivery/Assignment of Benefits Statement(POD/AOB) Form w patient or authorized agent signing on behalf of patient. Copy of POD/AOB provided to pt and other copy faxed to [employer] @ fax# [phone] Expected date of discharge: 08/12/2017. 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 Address: [address] [place] [address] [place] [address] (home) Mobile: Telephone Information: Referring Provider: No [...] [facility] Date/Procedure Med's given/comments 08/10/17 RLE angio with multiple STRIKE ON MACHINE OPERATOR to R posterior tibial artery [...] blue toe syndrome (possibly from a right MATHEMATICS INSTRUCTOR PSA which has since thrombosed), now [...] Pt taken for angiogram via transport on [facility]. Heparin gtt continues to run. [...] of : 1945 AGE 72 y.o. Address: [address] [place] [address] [place] [address] (home) Mobile: Telephone Information: Referring Provider: No [...] performed by Yuan Retana MD at [facility] OR ??? PRO COLONOSCOPY, REMV [...] [facility] Date/Procedure Meds given/comments No Prior [...] blue toe syndrome (possibly from a right MATHEMATICS INSTRUCTOR PSA which has since thrombosed), now [...] draw at 0045. 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 Vascular resident contracts officer and will forward result to the team prior to rounds. Melba Cruz RN - 08/08/2017 4:06 AM EST Fall Event Note Gregory Hoang [id number] 08/08/2017 Time of Fall: 0400 Was the [...] Starkey MD - 08/07/2017 4:32 PM EST 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 [...] [facility] Functional Status/Social Hx: Quit smoking [...] left blue toes with CTA showing R MATHEMATICS INSTRUCTOR pseudoaneurysm (now thrombosed) and occluded ATs [...] 2.5x80 5. Completion RLE angiogram 6. L MATHEMATICS INSTRUCTOR angiogram 7. Mynx closure Surgeons: Hank [...] blue toe syndrome (possibly from a right MATHEMATICS INSTRUCTOR PSA which has since thrombosed), now [...] - RLE angiogram demonstrated: Widely patent R MATHEMATICS INSTRUCTOR with small amount of flow seen [...] on the foot via collaterals. - L MATHEMATICS INSTRUCTOR angriogram demonstrated: High femoral bifurcation over the proximal half of the femoral head. L MATHEMATICS INSTRUCTOR access in the distal L MATHEMATICS INSTRUCTOR. - Closure device: Mynx Technical Procedure: [...] for a 45cm 5F Destination. V18 and Clifton and QuickCross catheters were used to select [...] 5F. A stationed picture of the L MATHEMATICS INSTRUCTOR was performed as the patient was noted to have a very high bifurcation. Access appeared in the distal R MATHEMATICS INSTRUCTOR. Closure and sheath removal was performed [...] PM EST 1440 report called to 5 marvell nurse Tessa AGUSTIN documented in this encounter Miscellaneous Notes Plan of Care - Dory Truong RN - 08/16/2017 10:51 AM EST Problem: Patient Care Overview Goal: Plan of Care Review Outcome: Outcome (s) achieved Date Met: 08/16/17 08/14/17 1939 08/16/17 9491 Coping/Psychosocial Plan Of Care Reviewed With -- patient Plan of Care Review Progress improving -- Discussed discharge instructions with pt and pt's spouse. Discharge to [facility]. Goal: Individualization & Mutuality Outcome: Outcome (s) [...] sit/sit to supine -- Bed Mobility Goal, Taos Level independent -- Bed Mobility Goal, Date [...] days -- Transfer Training Goal, Activity Type vdh-cw-kxzhv/qalmc-rv-kgr -- Transfer Train Goal, Taos Level conditional independence -- Transfer Train Goal, [...] call cabello within reach, Hourly rounding by RN/LEAD RECOVERER. Bed alarm / Chair alarm. Patient-specific fall [...] – KINGF[place]ER Operative Note Patient Name: Gregory Hoagn : [id number] MR#: [id number] Case Date: 08/09/2017 Surgeon: Surgeon(s) and Role: [...] 2.5x80 5. Completion RLE angiogram 6. L MATHEMATICS INSTRUCTOR angiogram 7. Mynx closure Precautions/Restrictions: fall, [...] other (see comments) (or swing bed) Pager: [phone] BASSAM ELIAS, PT 08/14/2017 Inpatient Physical Therapy [...] to Achieve by discharge Gait Training Goal, Taos Level conditional independence;set up required Gait Training [...] over the weekend except for [facility]. CM spoke with [facility] KANWAL Sanduh RN who said that they do not anticipate any beds over the weekend. Reviewed with patient/ that they need to be aware that patient will need to take the first bed offered at the facilities that they make referrals to. Their choices are: 1- [facility] PHONE: [phone] FAX: [phone] 2- [facility] ([facility]) [address] [place] [address] 3- [facility]) [address] [place] [address] I have discussed Medicare/Private Insurance [...] RS/CM on Wednesday to follow-up. Covering pager #[phone] for today. Plan of Care - Henrique [...] with additional findings of pseudoaneurysm on R MATHEMATICS INSTRUCTOR and bilateral anterior tibial artery occlusions. [...] an outpatient once discharged. Have patient call [phone] to set up an appointment. Follow-up: Dermatology will sign-off for now. Please do not hesitate to contact us if you have any questions orconcerns. Impression and Recommendations discussed with primary team on 08/13/2017. Karo Henderson MD Resident in Dermatology Section of Dermatology, Department of Surgery [facility] Pager [phone] Patient seen and evaluated with staff Buggy Driver: Halima Cordero MD Section of Dermatology [facility] Level of Resident Supervision: Direct Supervision (The [...] 2.5x80 5. Completion RLE angiogram 6. L MATHEMATICS INSTRUCTOR angiogram 7. Mynx closure Active Non-Hospital [...] home with home health ([facility] PT[facility]OT) Pager: [phone] YASIR TELLO OT 08/12/2017 Occupational Therapy Rehabilitation [...] 2.5x80 5. Completion RLE angiogram 6. L MATHEMATICS INSTRUCTOR angiogram 7. Mynx closure Past Medical [...] with 24/7 assistance and maximal services) Pager: [phone] NICHOLAS MORA, JESSIE 08/12/2017 Physical Therapy Rehabilitation [...] sit/sit to supine -- Bed Mobility Goal, Taos Level independent -- Bed Mobility Goal, Outcome Achieved -- goal ongoing Goal: Gait Training Goal Stand Alone Therapy Goal Outcome: Ongoing (Interventions Implemented as Appropriate) 08/11/17 1310 08/12/17 1510 Gait Training Goal Gait Training Goal, Date Established 08/11/17 -- Gait Training Goal, Time to Achieve 5 - 7 days -- Gait Training Goal, Taos Level conditional independence -- Gait Training Goal, [...] days -- Transfer Training Goal, Activity Type lou-ba-cyfdz/ietxd-uq-aog -- Transfer Train Goal, Taos Level conditional independence -- Transfer Training Goal, [...] Operative Note Patient Name: Gregory Hoang : [id number] MR#: [id number] Case Date: 08/11/2017 Surgeon: Surgeon(s) and Role: [...] blue toe syndrome (possibly from a right MATHEMATICS INSTRUCTOR 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 Completion RLE angiogram 6. L MATHEMATICS INSTRUCTOR angiogram 7. Mynx closure He is [...] Anticipated Discharge Disposition: inpatient rehabilitation facility Pager: [phone] LAWRENCE OGNZALEZ, PT 08/11/2017 Physical Therapy Rehabilitation Department 2017 [...] to sit/sit to supine Bed Mobility Goal, Taos Level independent Goal: Gait Training Goal Stand Alone Therapy Goal Outcome: Ongoing (Interventions Implemented as Appropriate) 08/11/17 1310 Gait Training Goal Gait Training Goal, Date Established 08/11/17 Gait Training Goal, Time to Achieve 5 - 7 days Gait Training Goal, Taos Level conditional independence Gait Training Goal, Assist [...] 7 days Transfer Training Goal, Activity Type amy-xj-uuliu/hswrn-qs-qdu Transfer Train Goal, Taos Level conditional independence Plan of Care - [...] call cabello within reach, Hourly rounding by RN/LEAD RECOVERER. Bed alarm / Chair alarm. ? Patient-specific [...] Care Planning: on file Kisha Hoang [facility] [phone] Current Coping/Education/Information Needs: pt and spouse state [...] Health/Prescription Coverage: Primary Insurance: MEDICARE Secondary Insurance: [employer] [place] Prescription Coverage: See above Preferred Pharmacy: [facility] [id number] Other: N/A Primary Care Provider: Lovely Vicente MD [phone] Patient/Caregiver Goals of Treatment: Patient plans to return home when medically ready Potential Needs for Transition of Care: Rehab/SNF: N/A Home Health: [facility]. DME: pt has a cane and walker [...] of care planning. Kaitlin Saha RN Pager: [phone] Plan of Care - Melba Jaramillo RN [...] Overview Goal: Plan of Care Review 08/08/17 7564 Coping/Psychosocial Plan Of Care Reviewed With patient [...] call cabello within reach, Hourly rounding by RN/LEAD RECOVERER. Bed alarm / Chair alarm. Patient-specific fall [...] at bedside and MD TEAM Carrying pager [phone] contacted (via Radio page) and notified of [...] Zulma Dolan MD [facility] [place], [place] [address] (Wo rk) 05/28/2022 Laboratory Appointment Lab 05/28/2022 Office Visit Cardiology Zulma Dolan MD [facility] [place] [address] iLz Poole PA [facility] [place] [address] 06/10/2022 Office Visit Dermatology Laura Scherer MD [facility] DR TEJA GR-[place]MAT [place], [place] [address] (Wo rk) documented as of [...] 160 65 - 199 [place] mg/dL [place] [...] City/State/[place] [address] (ABNORMAL) Differential, Automated (08/16/2017 5:08 AM EST) [facility] Method Time Signature Neutrophils % 73.9 % [facility] LABORATORY Neutr Abs (ANC) 5.37 1.70 - [facility] 6.10 [facility] x10(3)/[facility] LABORATORY Lymphocytes % 10.1 % [facility] LABORATORY Lymphocytes Abs 0.7 (L) 0.9 - 3.2 [facility] x10(3)/[facility] LABORATORY Monocytes % 10.1 % [facility] LABORATORY Monocyte Abs 0.7 0.3 - 0.9 [facility] x10(3)/[facility] LABORATORY Eosinophils % 5.1 % [facility] LABORATORY Eosinophils Abs 0.4 0.0 - 0.4 [facility] x10(3)/[facility] LABORATORY Basophils % 0.4 % [place] [...] Melisa Gran Abs 0.03 0.00 - 0.04 x10(3)/[facility] Y [facility] LABORATORY Specimen Anatomical Collection Method Collection Time Receive d Time (Source) Location / / Volume Laterality Blood specimen 08/16/2017 5:08 AM 018 5:20 (specimen) EST AM EST Resulting Agency Comment Spec In Lab Yonathan Smith MD HEMATOLOGY ORDERABLES Performing Organization Address City/State/[place] [address] (ABNORMAL) Hemogram (08/16/2017 5:08 AM EST) Analysis Performed At Patho logist Time Signature WBC 7.3 4.0 - 9.5 [facility] x10(3)/[facility] LABORATORY RBC 3.36 (L) 4.58 - [place] 5.54 [facility] x10(6)/[facility] LABORATORY Hemoglobin 9.7 (L) 13.7 [facility] 16.5 gm/dL [facility] LABORATORY Hematocrit 30.3 (L) 40.5 - [place] 48.5 % [facility] LABORATORY MCV 90.2 82.9 - [facility] RYAN 93.1 [facility] LABORATORY MCH 28.9 27.5 - [place] 32.1 pg [facility] LABORATORY MCHC 32.0 32.0 - [place] [place] 35.7 gm/dL [facility] LABORATORY Platelets 282 145 - 357 [place] x10(3)/[facility] LABORATORY RDWSD 53.9 (H) 36.0 - [place] 45.0 [facility] LABORATORY RDWCV 16.5 (H) 11.4 - [place] 13.8 % [facility] LABORATORY MPV 9.0 7.6 - 12.9 [place] [place] [facility] LABORATORY nRBC % Auto 0.0 % [facility] LABORATORY nRBC Abs Auto 0.000 0.000 - [place] 0.000 [facility] x10(3)/[facility] LABORATORY Specimen Anatomical Collection Method Collection Time Receive d Time (Source) Location / / Volume Laterality Blood specimen 08/16/2017 5:08 AM 018 5:20 (specimen) EST AM EST Resulting Agency Comment Spec In Lab Yonathan Smith MD HEMATOLOGY ORDERABLES Performing Organization Address City/State/ZIP Code Phon e Number [place] [id number] (ABNORMAL) Basic Metabolic Panel (non-fasting) (08/16/2017 5:08 AM EST) P athologist Signature Glucose Lvl 141 65 - 199 [facility] mg/dL [facility] LABORATORY [...] or in patients with acute kidney failure. [email or web address] Specimen Anatomical Collection Method Collection Time Receive d Time (Source) Location / / Volume Laterality Blood specimen 08/16/2017 5:08 AM 018 5:20 (specimen) EST AM EST Resulting Agency Comment Spec In Lab Yonathan Smith MD CHEMISTRY ORDERABLES Performing Organization Address City/State/[place] [address] (ABNORMAL) Prothrombin Time (08/16/2017 [...] Smith MD HEMATOLOGY ORDERABLES Performing Organization Address City/[facility]/ZIP Code Phon e Number [address] POCT Glucose (08/16/2017 4:09 AM EST) athologist Signature POC Glucose 147 65 - 199 [place] mg/dL [facility] LABORATORY Comment: [...] Address City/[facility]/ZIP Code Phon e Number [address] POCT Glucose (08/15/2017 11:56 PM EST) athologist Signature POC Glucose 176 65 - [address] [facility]/dL [facility] LABORATORY [...] Address City/[facility]/ZIP Code Phon e Number [address] POCT Glucose (08/15/2017 8:05 [...] Address City/State/[place] [address] (ABNORMAL) POCT Glucose (08/15/2017 4:50 PM EST) athologist Signature POC Glucose 232 (H) 65 - [address] [facility] mg/dL [facility] LABORATORY [...] Address City/State/[place] [address] POCT Glucose (08/15/2017 12:04 [...] Address City/State/[place] [address] POCT Glucose (08/15/2017 7:36 AM EST) P athologist Signature POC Glucose 124 65 - 199 [facility] mg/dL [facility] LABORATORY [...] City/State/[place] [address] (ABNORMAL) Differential, Automated (08/15/2017 6:22 AM EST) Patholo gist Method Time Signature Neutrophils % 76.1 % [facility] LABORATORY Neutr Abs (ANC) 6.62 (H) 1.70 - [facility] 6.10 [facility] x10(3)/[facility] L LABORATORY Lymphocytes % 9.3 % [facility] LABORATORY Lymphocytes Abs 0.8 (L) 0.9 - 3.2 [facility] x10(3)/[facility] LABORATORY Monocytes % 9.4 % [facility] LABORATORY Monocyte Abs 0.8 0.3 - 0.9 [facility] x10(3)/[facility] LABORATORY Eosinophils % 4.0 % [facility] LABORATORY Eosinophils Abs 0.4 0.0 - 0.4 [facility] x10(3)/[facility] LABORATORY Basophils % 0.6 % [facility] LABORATORY Basophils Abs 0.0 0.0 - 0.1 [facility] x10(3)/[facility] LABORATORY Immature [...] Gran Abs 0.05 (H) 0.00 - 0.04 x10(3)/[facility] LABORATORY Specimen Anatomical Collection Method Collection Time Receive d Time (Source) Location / / Volume Laterality Blood specimen 08/15/2017 6:22 AM 018 6:33 (specimen) EST AM EST Resulting Agency Comment Spec In Lab Yonathan Smith MD HEMATOLOGY ORDERABLES Performing Organization Address City/State/[place] [address] (ABNORMAL) Hemogram (08/15/2017 6:22 AM EST) Analysis Performed At Patho logist Time Signature WBC 8.7 4.0 - 9.5 [facility] x10(3)/[facility] LABORATORY RBC 3.21 (L) 4.58 - [place] 5.54 [facility] x10(6)/[facility] LABORATORY Hemoglobin 9.1 (L) 13.7 [facility] gm/dL [facility] LABORATORY Hematocrit 29.0 (L) 40.5 - [facility] 48.5 % [facility] LABORATORY MCV 90.3 82.9 [facility]1 [facility] LABORATORY MCH 28.3 27.5 - [facility] RYAN 32.1 pg [facility] LABORATORY MCHC 31.4 (L) 32.0 - [place] 35.7 gm/dL [facility] LABORATORY Platelets 254 145 - 357 [facility] x10(3)/[facility] LABORATORY RDWSD 53.9 (H) 36.0 - [facility] RYAN 45.0 [facility] LABORATORY RDWCV 16.3 (H) 11.4 - [facility] RYAN 13.8 % [facility] LABORATORY MPV 8.8 7.6 - 12.9 [facility] LABORATORY nRBC % Auto 0.0 % [facility] LABORATORY nRBC Abs Auto 0.000 0.000 - [place] [facility] 0.000 [facility] x10(3)/[facility] LABORATORY Specimen Anatomical Collection Method Collection Time Receive d Time (Source) Location / / Volume Laterality Blood specimen 08/15/2017 6:22 AM 018 6:33 (specimen) EST AM EST Resulting Agency Comment Spec In Lab Yonathan Smith MD HEMATOLOGY ORDERABLES Performing Organization Address City/State/[place] [address] (ABNORMAL) Basic Metabolic Panel (non-fasting) (08/15/2017 6:22 AM EST) P athologist Signature Glucose Lvl 118 65 - 199 [facility] mg/dL [facility] LABORATORY [...] or in patients with acute kidney failure. [email or web address] [email or web address] Specimen Anatomical Collection Method Collection Time Receive d Time (Source) Location / / Volume Laterality Blood specimen 08/15/2017 6:22 AM 018 6:33 (specimen) EST AM EST Resulting Agency Comment Spec In Lab Yonathan Smith MD CHEMISTRY ORDERABLES Performing Organization Address City/State/[place] [address] (ABNORMAL) Prothrombin Time (08/15/2017 [...] Smith MD HEMATOLOGY ORDERABLES Performing Organization Address City/[facility]/[place] [address] POCT Glucose (08/15/2017 4:33 AM EST) athologist Signature POC Glucose 164 65 - 199 [place] mg/dL [facility] LABORATORY Comment: [...] Address City/State/[place] [address] POCT Glucose (08/15/2017 12:12 AM EST) athologist Signature POC Glucose 89 65 - [address] [facility]dL [facility] LABORATORY [...] Address City/State/[place] [address] (ABNORMAL) POCT Glucose (08/14/2017 [...] Address City/State/[place] [address] POCT Glucose (08/14/2017 5:11 PM EST) athologist Signature POC Glucose 174 65 - 199 [place] [facility] mg/dL [place] [...] Address City/State/[place] [address] POCT Glucose (08/14/2017 12:10 [...] Address City/State/[place] [address] POCT Glucose (08/14/2017 8:07 AM EST) P athologist Signature POC Glucose 158 65 - 199 [place] mg/dL [facility] LABORATORY Comment: [...] Address City/State/[place] [address] (ABNORMAL) Differential, Automated (08/14/2017 4:52 AM EST) Patholo gist Method Time Signature Neutrophils % 78.6 % [facility] LABORATORY Neutr Abs (ANC) 7.70 (H) 1.70 - [facility] 6.10 [facility] x10(3)/[facility] L LABORATORY Lymphocytes % 7.8 % [facility] LABORATORY Lymphocytes Abs 0.8 (L) 0.9 - 3.2 [facility] x10(3)/[facility] LABORATORY Monocytes % 8.8 % [facility] LABORATORY Monocyte Abs 0.9 0.3 - 0.9 [facility] x10(3)/[facility] LABORATORY Eosinophils % 4.0 % [facility] LABORATORY Eosinophils Abs 0.4 0.0 - 0.4 [facility] x10(3)/[facility] LABORATORY Basophils % 0.5 % [facility] LABORATORY Basophils Abs 0.0 0.0 - 0.1 [facility] x10(3)/[facility] LABORATORY Immature [...] [facility] MAR Y [facility] LABORATORY Specimen Anatomical Collection Method Collection Time Receive d Time (Source) Location / / Volume Laterality Blood specimen 08/14/2017 4:52 AM 018 5:08 (specimen) EST AM EST Resulting Agency Comment Spec In Lab Yonathan Smith MD HEMATOLOGY ORDERABLES Performing Organization Address City/State/[place] [address] (ABNORMAL) Hemogram (08/14/2017 4:52 AM EST) Analysis Performed At Patho logist Time Signature WBC 9.8 (H) 4.0 - 9.5 [facility] x10(3)/[facility] LABORATORY RBC 3.32 (L) 4.58 - [facility] 5.[facility] x10(6)/[facility] LABORATORY Hemoglobin 9.5 (L) 13.7 [facility] 16.5 gm/dL [facility] LABORATORY Hematocrit 30.3 (L) 40.5 [facility] 48.5 % [facility] LABORATORY MCV 91.3 82.9 [facility].1 [facility] LABORATORY MCH 28.6 27.5 - [facility] RYAN 32.1 pg [facility] LABORATORY MCHC 31.4 (L) 32.0 - [place] 35.7 gm/dL [facility] LABORATORY Platelets 263 145 - 357 [facility] x10(3)/[facility] LABORATORY RDWSD 54.8 (H) 36.0 - [place] [facility] 45.0 [facility] LABORATORY RDWCV 16.5 (H) 11.4 - [place] 13.8 % [facility] LABORATORY MPV 9.1 7.6 - 12.9 [facility] LABORATORY nRBC % Auto 0.0 % [facility] LABORATORY nRBC Abs Auto 0.000 0.000 - [facility] 0.000 [facility] x10(3)/[facility] LABORATORY Specimen Anatomical Collection Method Collection Time Receive d Time (Source) Location / / Volume Laterality Blood specimen 08/14/2017 4:52 AM 018 5:08 (specimen) EST AM EST Resulting Agency Comment Spec In Lab Yonathan Smith MD HEMATOLOGY ORDERABLES Performing Organization Address City/State/[place] [address] (ABNORMAL) Prothrombin Time (08/14/2017 [...] City/State/[place] [address] (ABNORMAL) Basic Metabolic Panel (non-fasting) (08/14/2017 4:52 AM EST) P athologist Signature Glucose Lvl 135 65 - 199 [facility] mg/dL [facility] LABORATORY [...] or in patients with acute kidney failure. [email or web address] Specimen Anatomical Collection Method Collection Time Receive d Time (Source) Location / / Volume Laterality Blood specimen 08/14/2017 4:52 AM 018 5:08 (specimen) EST AM EST Resulting Agency Comment Spec In Lab Yonathan Smith MD CHEMISTRY ORDERABLES Performing Organization Address City/State/[place] [address] POCT Glucose (08/14/2017 3:56 AM EST) P athologist Signature POC Glucose 135 65 - 199 [facility] mg/dL [facility] LABORATORY [...] Address City/State/ZIP Code Phon e Number [address] POCT Glucose (08/13/2017 11:13 PM EST) athologist Signature POC Glucose 118 65 - 199 [place] [facility] mg/dL [place] [...] Address City/[facility]/[place] [address] (ABNORMAL) POCT Glucose (08/13/2017 [...] Address City/State/[place] [address] POCT Glucose (08/13/2017 4:02 [...] Address City/State/[place] [address] POCT Glucose (08/13/2017 11:31 AM EST) athologist Signature POC Glucose 179 65 - [address] [facility]/dL [facility] LABORATORY [...] Address City/[facility]/[place] [address] (ABNORMAL) POCT Glucose (08/13/2017 10:16 AM EST) athologist Signature POC Glucose 211 (H) 65 - [address] [facility]/dL [facility] LABORATORY [...] Address City/[facility]/[place] [address] JULIAN, legs, multiple levels (08/13/2017 7:42 AM EST) Component Value Ref Test Analysis Performed At Patholo gist Range Method Time Signature VB Text Department: Vascular Surgery Lab VASCUBASE Report Patient: [id number] (GREGORY HOANG) CPT: 72165 ICD10: I99.8 Referring Physician: YONATHAN SMITH ?? Indications: s/p R 1,2,3 toe amps with red left foot, need n ew baseline Diabetes mellitus: yes ICD10 Diagnosis Code: I99.8 Findings: Right ?Pressure (mm Hg) ?? JULIAN ??Waveform ?TBI ?? Brachial Artery ?138 ? Dorsalis Pedis (Ankle) Arter y ?132 ? 0.94 ??Kern- Biphasic ? Posterior Tibial (Ankle) Art anila ??154 ? 1.10 ??Kern-Biphasic ? Fourth Toe ? 67 ? 0.48 [...] - 199 [facility] mg/dL [facility] LABORATORY [...] City/State/ZIP Code Phon e Number [place] [id number] Drive (ABNORMAL) Differential, Automated (08/13/2017 5:33 AM EST) [facility] Method Time Signature Neutrophils % 77.8 % [facility] LABORATORY Neutr Abs (ANC) 7.83 (H) 1.70 - [facility] 6.10 [facility] x10(3)/[facility] L LABORATORY Lymphocytes % 8.4 % [facility] LABORATORY Lymphocytes Abs 0.8 (L) 0.9 - 3.2 [facility] x10(3)/[facility] LABORATORY Monocytes % 8.3 % [facility] LABORATORY Monocyte Abs 0.8 0.3 - 0.9 [facility] x10(3)/[facility] LABORATORY Eosinophils % 4.6 % [facility] LABORATORY Eosinophils Abs 0.5 (H) 0.0 - 0.4 [facility] x10(3)/[facility] LABORATORY Basophils % 0.5 % [facility] LABORATORY Basophils Abs 0.0 0.0 - 0.1 [facility] x10(3)/[facility] LABORATORY Immature [...] City/State/[place] [address] (ABNORMAL) Hemogram (08/13/2017 5:33 AM EST) Analysis Performed At Patho logist Time Signature WBC 10.1 (H) 4.0 - 9.5 [facility] x10(3)/[facility] LABORATORY RBC 3.21 (L) 4.58 - [facility] 5.54 [facility] x10(6)/[facility] LABORATORY Hemoglobin 9.2 (L) 13.7 - [place] 16.5 gm/dL [facility] LABORATORY Hematocrit 29.6 (L) 40.5 - [facility] 48.5 % [facility] LABORATORY MCV 92.2 82.9 - [facility] 93.1 [facility] LABORATORY MCH 28.7 27.5 - [facility] 32.1 pg [facility] LABORATORY MCHC 31.1 (L) 32.0 - [facility] 35.7 gm/dL [facility] LABORATORY Platelets 263 145 - 357 [facility] x10(3)/[facility] LABORATORY RDWSD 54.8 (H) 36.0 - [facility] 45.0 [facility] LABORATORY RDWCV 16.4 (H) 11.4 - [facility] 13.8 % [facility] LABORATORY MPV 9.2 7.6 - 12.9 [facility] LABORATORY nRBC % Auto 0.0 % [facility] LABORATORY nRBC Abs Auto 0.000 0.000 - [facility] 0.000 [facility] x10(3)/[facility] LABORATORY Specimen Anatomical Collection Method Collection Time Receive d Time (Source) Location / / Volume Laterality Blood specimen 08/13/2017 5:33 AM 018 6:04 (specimen) EST AM EST Resulting Agency Comment Spec In Lab Yonathan Smith MD HEMATOLOGY ORDERABLES Performing Organization Address City/State/[place] [address] (ABNORMAL) Prothrombin Time (08/13/2017 [...] City/State/[place] [address] (ABNORMAL) Basic Metabolic Panel (non-fasting) (08/13/2017 5:33 AM EST) athologist Signature Glucose Lvl 126 65 - 199 [facility] mg/dL [facility] LABORATORY [...] LABORATORY Estimated GFR >60 >=60 [facility] LABORATORY Comment: The reported eGFR should be multiplied b y 1.2 for patients. The MDRD is not an appropriate measure o f renal function for patients with body mass extremes or in patients with acute kidney failure. [email or web address] Specimen Anatomical Collection Method Collection Time Receive d Time (Source) Location / / Volume Laterality Blood specimen 08/13/2017 5:33 AM 018 6:04 (specimen) EST AM EST Resulting Agency Comment Spec In Lab Yonathan Smith MD CHEMISTRY ORDERABLES Performing Organization Address City/[facility]/ZIP Code Phon e Number [address] POCT Glucose (08/13/2017 4:29 AM EST) athologist Signature POC Glucose 111 65 - 199 [place] mg/dL [facility] LABORATORY Comment: [...] Address City/[facility]/ZIP Code Phon e Number [address] POCT Glucose (08/12/2017 11:28 PM EST) athologist Signature POC Glucose 164 65 - [address] [facility]/dL [facility] LABORATORY [...] Address City/[facility]/[place] [address] (ABNORMAL) POCT Glucose (08/12/2017 [...] Address City/State/ZIP Code Phon e Number [address] POCT Glucose (08/12/2017 4:24 PM EST) athologist Signature POC Glucose 161 65 - 199 [facility] RYAN mg/dL [facility] [...] Address City/State/[place] [address] POCT Glucose (08/12/2017 12:00 PM EST) athologist Signature POC Glucose 167 65 - 199 [facility] mg/dL [place] [...] Address City/State/[place] [address] POCT Glucose (08/12/2017 7:25 AM EST) P athologist Signature POC Glucose 152 65 - 199 [facility] mg/dL [facility] LABORATORY [...] City/State/ZIP Code Phon e Number [place] [id number]OS[address] Drive (ABNORMAL) Differential, Automated (08/12/2017 6:29 AM EST) Patholo gist Method Time Signature Neutrophils % 78.7 % [facility] LABORATORY Neutr Abs (ANC) 7.94 (H) 1.70 - [facility] 6.10 [facility] x10(3)/[facility] LABORATORY Lymphocytes % 8.8 % [facility] LABORATORY Lymphocytes Abs 0.9 0.9 - 3.2 [facility] x10(3)/[facility] LABORATORY Monocytes % 7.8 % [facility] LABORATORY Monocyte Abs 0.8 0.3 - 0.9 [facility] x10(3)/[facility] LABORATORY Eosinophils % 3.9 % [facility] LABORATORY Eosinophils Abs 0.4 0.0 - 0.4 [facility] x10(3)/[facility] LABORATORY Basophils % 0.3 % [facility] LABORATORY Basophils Abs 0.0 0.0 - 0.1 [facility] x10(3)/[facility] LABORATORY Immature [...] Gran Abs 0.05 (H) 0.00 - 0.04 x10(3)/[facility] LABORATORY Specimen Anatomical Collection Method Collection Time Receive d Time (Source) Location / / Volume Laterality Blood specimen 08/12/2017 6:29 AM 018 6:38 (specimen) EST AM EST Resulting Agency Comment Spec In Lab Yonathan Smith MD HEMATOLOGY ORDERABLES Performing Organization Address City/State/[place] [address] (ABNORMAL) Hemogram (08/12/2017 6:29 AM EST) Analysis Performed At Patho logist Time Signature WBC 10.1 (H) 4.0 - 9.5 [facility] x10(3)/[facility] LABORATORY RBC 3.02 (L) 4.58 - [place] 5.54 [facility] x10(6)/[facility] LABORATORY Hemoglobin 8.7 (L) 13.7 - [place] 16.5 gm/dL [facility] LABORATORY Hematocrit 28.1 (L) 40.5 - [place] 48.5 % [facility] LABORATORY MCV 93.0 82.9 - [place] 93.1 [facility] LABORATORY MCH 28.8 27.5 - [place] 32.1 pg [facility] LABORATORY MCHC 31.0 (L) 32.0 - [place] 35.7 gm/dL [facility] LABORATORY Platelets 223 145 - 357 [facility] x10(3)/[facility] LABORATORY RDWSD 56.1 (H) 36.0 - [facility] RYAN 45.0 [facility] LABORATORY RDWCV 16.4 (H) 11.4 - [facility] RYAN 13.8 % [facility] LABORATORY MPV 9.0 7.6 - 12.9 [facility] LABORATORY nRBC % Auto 0.0 % [facility] LABORATORY nRBC Abs Auto 0.000 0.000 - [place] [facility] 0.000 [facility] x10(3)/[facility] LABORATORY Specimen Anatomical Collection Method Collection Time Receive d Time (Source) Location / / Volume Laterality Blood specimen 08/12/2017 6:29 AM 018 6:38 (specimen) EST AM EST Resulting Agency Comment Spec In Lab Yonathan Smith MD HEMATOLOGY ORDERABLES Performing Organization Address City/[facility]/[place] [address] (ABNORMAL) Prothrombin Time (08/12/2017 [...] Address City/State/[place] [address] (ABNORMAL) Basic Metabolic Panel (non-fasting) (08/12/2017 6:29 AM EST) athologist Signature Glucose Lvl 151 65 - 199 [facility] mg/dL [facility] LABORATORY [...] or in patients with acute kidney failure. [email or web address] Specimen Anatomical Collection Method Collection Time Receive d Time (Source) Location / / Volume Laterality Blood specimen 08/12/2017 6:29 AM 018 6:38 (specimen) EST AM EST Resulting Agency Comment Spec In Lab Yonathan Smith MD CHEMISTRY ORDERABLES Performing Organization Address City/[facility]/[place] [address] POCT Glucose (08/12/2017 4:08 AM EST) athologist Signature POC Glucose 181 65 - 199 [place] mg/dL [facility] LABORATORY Comment: [...] Address City/[facility]/[place] [address] (ABNORMAL) POCT Glucose (08/12/2017 12:17 AM EST) athologist Signature POC Glucose 221 (H) 65 - 199 [place] mg/dL [facility] LABORATORY Comment: [...] Address City/[facility]/[place] [address] (ABNORMAL) POCT Glucose (08/11/2017 [...] Address City/[facility]/[place] [address] POCT Glucose (08/11/2017 5:59 PM EST) athologist Signature POC Glucose 169 65 - 199 [place] mg/dL [place] [...] Address City/State/[place] [address] (ABNORMAL) POCT Glucose (08/11/2017 [...] Address City/[facility]/ZIP Code Phon e Number [address] POCT Glucose (08/11/2017 12:04 PM EST) athologist Signature POC Glucose 182 65 - [address] [facility] LABORATORY [...] Address City/[facility]/ZIP Code Phon e Number [address] POCT Glucose (08/11/2017 7:31 AM EST) athologist Signature POC Glucose 156 65 - [address] [facility]dL [facility] LABORATORY [...] Address City/[facility]/ZIP Code Phon e Number [address] (ABNORMAL) Differential, Automated (08/11/2017 6:16 AM EST) [facility] Method Time Signature Neutrophils % 83.7 % [facility] LABORATORY Neutr Abs (ANC) 10.76 (H) 1.70 - [facility] 6.10 [facility] x10(3)/[facility] L LABORATORY Lymphocytes % 6.0 % [facility] LABORATORY Lymphocytes Abs 0.8 (L) 0.9 - 3.2 [facility] x10(3)/[facility] LABORATORY Monocytes % 7.5 % [facility] LABORATORY Monocyte Abs 1.0 (H) 0.3 - 0.9 [facility] x10(3)/[facility] LABORATORY Eosinophils % 2.0 % [facility] LABORATORY Eosinophils Abs 0.3 0.0 - 0.4 [facility] x10(3)/[facility] LABORATORY Basophils % 0.3 % [facility] LABORATORY Basophils Abs 0.0 0.0 - 0.1 [facility] x10(3)/[facility] LABORATORY Immature [...] Gran Abs 0.06 (H) 0.00 - 0.04 x10(3)/[facility] LABORATORY Specimen Anatomical Collection Method Collection Time Receive d Time (Source) Location / / Volume Laterality Blood specimen 08/11/2017 6:16 AM 018 6:24 (specimen) EST AM EST Resulting Agency Comment Spec In Lab Yonathan Smith MD HEMATOLOGY ORDERABLES Performing Organization Address City/State/[place] [address] (ABNORMAL) Hemogram (08/11/2017 6:16 AM EST) Analysis Performed At Patho logist Time Signature WBC 12.9 (H) 4.0 - 9.5 [facility] x10(3)/[facility] LABORATORY RBC 3.28 (L) 4.58 - [facility] 5.54 [facility] x10(6)/[facility] LABORATORY Hemoglobin 9.5 (L) 13.7 - [facility] 16.5 gm/dL [facility] LABORATORY Hematocrit 29.8 (L) 40.5 - [facility] 48.5 % [facility] LABORATORY MCV 90.9 82.9 - [facility] RYAN 93.1 [facility] LABORATORY MCH 29.0 27.5 - [facility] 32.1 pg [facility] LABORATORY MCHC 31.9 (L) 32.0 - [facility] 35.7 gm/dL [facility] LABORATORY Platelets 236 145 - 357 [facility] x10(3)/[facility] LABORATORY RDWSD 53.5 (H) 36.0 - [facility] 45.0 [facility] LABORATORY RDWCV 16.3 (H) 11.4 - [facility] RYAN 13.8 % [facility] LABORATORY MPV 8.8 7.6 - 12.9 [facility] LABORATORY nRBC % Auto 0.0 % [facility] LABORATORY nRBC Abs Auto 0.000 0.000 - [facility] RYAN 0.000 [facility] x10(3)/[facility] LABORATORY Specimen Anatomical Collection Method Collection Time Receive d Time (Source) Location / / Volume Laterality Blood specimen 08/11/2017 6:16 AM 018 6:24 (specimen) EST AM EST Resulting Agency Comment Spec In Lab Yonathan Smith MD HEMATOLOGY ORDERABLES Performing Organization Address City/State/[place] [address] (ABNORMAL) Prothrombin Time (08/11/2017 [...] City/State/[place] [address] Basic Metabolic Panel (non-fasting) (08/11/2017 6:16 AM EST) P athologist Signature Glucose Lvl 139 65 - 199 [facility] mg/dL [facility] LABORATORY [...] or in patients with acute kidney failure. [email or web address] [email or web address] Specimen Anatomical Collection Method Collection Time Receive d Time (Source) Location / / Volume Laterality Blood specimen 08/11/2017 6:16 AM 018 6:24 (specimen) EST AM EST Resulting Agency Comment Spec In Lab Yonathan Smith MD CHEMISTRY ORDERABLES Performing Organization Address City/State/ZIP Code Phon e Number [address] POCT Glucose (08/11/2017 4:07 [...] Address City/[facility]/ZIP Code Phon e Number [address] POCT Glucose (08/10/2017 11:59 [...] Address City/State/ZIP Code Phon e Number [address] POCT Glucose (08/10/2017 8:12 [...] City/State/ZIP Code Phon e Number [place] [phone]OSP[address] (ABNORMAL) POCT Glucose (08/10/2017 4:42 PM EST) P athologist Signature POC Glucose 211 (H) 65 - 199 [place] mg/dL [facility] LABORATORY Comment: [...] Address City/State/ZIP Code Phon e Number [address] (ABNORMAL) Differential, Automated (08/10/2017 2:30 PM EST) Patholo gist Method Time Signature Neutrophils % 87.6 % [facility] LABORATORY Neutr Abs (ANC) 9.90 (H) 1.70 - [facility] 6.10 [facility] x10(3)/[facility] L LABORATORY Lymphocytes % 4.3 % [facility] LABORATORY Lymphocytes Abs 0.5 (L) 0.9 - 3.2 [facility] x10(3)/[facility] LABORATORY Monocytes % 6.0 % [facility] LABORATORY Monocyte Abs 0.7 0.3 - 0.9 [facility] x10(3)/[facility] LABORATORY Eosinophils % 1.1 % [facility] LABORATORY Eosinophils Abs 0.1 0.0 - 0.4 [facility] x10(3)/[facility] LABORATORY Basophils % 0.4 % [facility] LABORATORY Basophils Abs 0.0 0.0 - 0.1 [facility] x10(3)/[facility] LABORATORY Immature [...] Gran Abs 0.07 (H) 0.00 - 0.04 x10(3)/[facility] LABORATORY Specimen Anatomical Collection Method Collection Time Receive d Time (Source) Location / / Volume Laterality Blood specimen 08/10/2017 2:30 PM 018 2:48 (specimen) EST PM EST Resulting Agency Comment Spec In Lab Yonathan Smith MD HEMATOLOGY ORDERABLES Performing Organization Address City/State/[place] [address] (ABNORMAL) Hemogram (08/10/2017 2:30 PM EST) Analysis Performed At Patho logist Time Signature WBC 11.3 (H) 4.0 - 9.5 [facility] x10(3)/[facility] LABORATORY RBC 3.13 (L) 4.58 - [place] 5.54 [facility] x10(6)/[facility] LABORATORY Hemoglobin 8.9 (L) 13.7 - [facility] 16.5 gm/dL [facility] LABORATORY Hematocrit 28.4 (L) 40.5 - [place] 48.5 % [facility] LABORATORY MCV 90.7 82.9 - [place] 93.1 [facility] LABORATORY MCH 28.4 27.5 - [place] 32.1 pg [facility] LABORATORY MCHC 31.3 (L) 32.0 - [place] 35.7 gm/dL [facility] LABORATORY Platelets 213 145 - 357 [facility] x10(3)/[facility] LABORATORY RDWSD 53.7 (H) 36.0 - [facility] RYAN 45.0 [facility] LABORATORY RDWCV 16.4 (H) 11.4 - [facility] RYAN 13.8 % [facility] LABORATORY MPV 8.9 7.6 - 12.9 [facility] LABORATORY nRBC % Auto 0.0 % [facility] LABORATORY nRBC Abs Auto 0.000 0.000 - [facility] [employer] 0.000 [facility] x10(3)/[facility] LABORATORY Specimen Anatomical Collection Method Collection Time Receive d Time (Source) Location / / Volume Laterality Blood specimen 08/10/2017 2:30 PM 018 2:48 (specimen) EST PM EST Resulting Agency Comment Spec In Lab Yonathan Smith MD HEMATOLOGY ORDERABLES Performing Organization Address City/[facility]/ZIP Code Phon e Number [address] (ABNORMAL) POCT Glucose (08/10/2017 1:50 PM EST) athologist Signature POC Glucose 243 (H) 65 - 199 [place] mg/dL [facility] LABORATORY Comment: [...] Address City/[facility]/ZIP Code Phon e Number [address] POCT Glucose (08/10/2017 11:21 AM EST) athologist Signature POC Glucose 156 65 - 199 [place] mg/dL [facility] LABORATORY Comment: [...] Address City/[facility]/ZIP Code Phon e Number [address] (ABNORMAL) Differential, Automated (08/10/2017 10:28 AM EST) [facility] Method Time Signature Neutrophils % 85.3 % [facility] LABORATORY Neutr Abs (ANC) 9.43 (H) 1.70 - [facility] 6.10 [facility] x10(3)/[facility] L LABORATORY Lymphocytes % 5.5 % [facility] LABORATORY Lymphocytes Abs 0.6 (L) 0.9 - 3.2 [facility] x10(3)/[facility] LABORATORY Monocytes % 5.9 % [facility] LABORATORY Monocyte Abs 0.6 0.3 - 0.9 [facility] x10(3)/[facility] LABORATORY Eosinophils % 2.1 % [facility] LABORATORY Eosinophils Abs 0.2 0.0 - 0.4 [facility] x10(3)/[facility] LABORATORY Basophils % 0.4 % [facility] LABORATORY Basophils Abs 0.0 0.0 - 0.1 [facility] x10(3)/[facility] LABORATORY Immature [...] Gran Abs 0.09 (H) 0.00 - 0.04 x10(3)/[facility] LABORATORY Specimen Anatomical Collection Method Collection Time Receive d Time (Source) Location / / Volume Laterality Blood specimen 08/10/2017 10:28 8 (specimen) AM EST 10:35 AM EST Resulting Agency Comment Spec In Lab Yonathan Smith MD HEMATOLOGY ORDERABLES Performing Organization Address City/State/[place] [address] (ABNORMAL) Hemogram (08/10/2017 10:28 AM EST) Analysis Performed At Patho logist Time Signature WBC 11.0 (H) 4.0 - 9.5 [facility] x10(3)/[facility] LABORATORY RBC 3.02 (L) 4.58 - [facility] 5.54 [facility] x10(6)/[facility] LABORATORY Hemoglobin 8.8 (L) 13.7 - [facility] 16.5 gm/dL [facility] LABORATORY Hematocrit 28.1 (L) 40.5 - [facility] 48.5 % [facility] LABORATORY MCV 93.0 82.9 - [place] 93.1 [facility] LABORATORY MCH 29.1 27.5 - [place] [place] 32.1 pg [facility] LABORATORY MCHC 31.3 (L) 32.0 - [place] DAVIS 35.7 gm/dL [facility] LABORATORY Platelets 207 145 - 357 [facility] ZHAORYAN x10(3)/[facility] LABORATORY RDWSD 55.3 (H) 36.0 - [place] DAVIS 45.0 [facility] LABORATORY RDWCV 16.4 (H) 11.4 - [place] RYAN 13.8 % [facility] LABORATORY MPV 9.0 7.6 - 12.9 [facility] LABORATORY nRBC % Auto 0.0 % [facility] nRBC Abs Auto 0.000 0.000 - [place] DAVIS 0.000 [facility] x10(3)/[facility] LABORATORY Specimen Anatomical Collection Method Collection Time Receive d Time (Source) Location / / Volume Laterality Blood specimen 08/10/2017 10:28 8 (specimen) AM EST 10:35 AM EST Resulting Agency Comment Spec In Lab Yonathan Smith MD HEMATOLOGY ORDERABLES Performing Organization Address City/State/[place] [address] VS Angiogram/intervention (vascular) (08/10/2017 [...] 2.5x80 5. Completion RLE angiogram 6. L MATHEMATICS INSTRUCTOR angiogram 7. 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 - L MATHEMATICS INSTRUCTOR angriogram demonstrated: High fe moral bifurcation over the proximal half of the femoral head. L MATHEMATICS INSTRUCTOR access in the distal L MATHEMATICS INSTRUCTOR. - Closure device: Mynx Technical Procedure: [...] for a 45cm 5F Destination. V18 and Clifton a nd QuickCross catheters were used to [...] bifurcation. Access appeared in the distal R MATHEMATICS INSTRUCTOR. Closure and sheath removal was performed [...] 2.5x80 5. Completion RLE angiogram 6. L MATHEMATICS INSTRUCTOR angiogram 7. 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 - L MATHEMATICS INSTRUCTOR angriogram demonstrated: High fe moral bifurcation over the proximal half of the femoral head. L MATHEMATICS INSTRUCTOR access in the distal L MATHEMATICS INSTRUCTOR. - Closure device: Mynx Technical Procedure: [...] for a 45cm 5F Destination. V18 and Clifton a nd QuickCross catheters were used to [...] bifurcation. Access appeared in the distal R MATHEMATICS INSTRUCTOR. Closure and sheath removal was performed [...] (ABNORMAL) Differential, Automated (08/10/2017 5:50 AM EST) [facility] Method Time Signature Neutrophils % 80.1 % [facility] LABORATORY Neutr Abs (ANC) 9.01 (H) 1.70 - [facility] 6.10 [facility] x10(3)/[facility] LABORATORY Lymphocytes % 8.8 % [facility] LABORATORY Lymphocytes Abs 1.0 0.9 - 3.2 [facility] x10(3)/[facility] LABORATORY Monocytes % 8.3 % [facility] LABORATORY Monocyte Abs 0.9 0.3 - 0.9 [facility] x10(3)/[facility] LABORATORY Eosinophils % 2.0 % [facility] LABORATORY Eosinophils Abs 0.2 0.0 - 0.4 [facility] x10(3)/[facility] LABORATORY Basophils % 0.4 % [facility] LABORATORY Basophils Abs 0.0 0.0 - 0.1 [facility] x10(3)/[facility] LABORATORY Immature [...] Gran Abs 0.05 (H) 0.00 - 0.04 x10(3)/[facility] LABORATORY Specimen Anatomical Collection Method Collection Time Receive d Time (Source) Location / / Volume Laterality Blood specimen 08/10/2017 5:50 AM 018 5:59 (specimen) EST AM EST Resulting Agency Comment Spec In Lab Yonathan Smith MD HEMATOLOGY ORDERABLES Performing Organization Address City/State/[place] [address] (ABNORMAL) Hemogram (08/10/2017 5:50 AM EST) Analysis Performed At Patho logist Time Signature WBC 11.3 (H) 4.0 - 9.5 [facility] x10(3)/[facility] LABORATORY RBC 3.15 (L) 4.58 - [place] RYAN 5.54 [facility] x10(6)/[facility] LABORATORY Hemoglobin 8.9 (L) 13.7 [facility] gm/dL [facility] LABORATORY Hematocrit 29.0 (L) 40.5 - [facility] RYAN 48.5 % [facility] LABORATORY MCV 92.1 82.9 - [facility] RYAN 93.1 [facility] LABORATORY MCH 28.3 27.5 - [facility] RYAN 32.1 pg [facility] LABORATORY MCHC 30.7 (L) 32.0 - [facility] RYAN 35.7 gm/dL [facility] LABORATORY Platelets 231 145 - 357 [place] x10(3)/[facility] RDWSD 53.9 (H) 36.0 - [facility] RYAN 45.0 [facility] LABORATORY RDWCV 16.2 (H) 11.4 - [facility] RYAN 13.8 % [facility] LABORATORY MPV 8.7 7.6 - 12.9 [facility] LABORATORY nRBC % Auto 0.0 % [facility] LABORATORY nRBC Abs Auto 0.000 0.000 - [facility] 0.000 [facility] x10(3)/[facility] LABORATORY Specimen Anatomical Collection Method Collection Time Receive d Time (Source) Location / / Volume Laterality Blood specimen 08/10/2017 5:50 AM 018 5:59 (specimen) EST AM EST Resulting Agency Comment Spec In Lab Yonathan Smith MD HEMATOLOGY ORDERABLES Performing Organization Address City/State/[place] [address] (ABNORMAL) Basic Metabolic Panel (non-fasting) (08/10/2017 5:50 AM EST) P athologist Signature Glucose Lvl 135 65 - 199 [facility] mg/dL [facility] LABORATORY [...] or in patients with acute kidney failure. http://[email or web address]/DHnkdep [email or web address] Specimen Anatomical Collection Method Collection Time Receive d Time (Source) Location / / Volume Laterality Blood specimen 08/10/2017 5:50 AM 018 5:59 (specimen) EST AM EST Resulting Agency Comment Spec In Lab Yonathan Smith MD CHEMISTRY ORDERABLES Performing Organization Address [facility] [place] [address] (ABNORMAL) Prothrombin Time (08/10/2017 [...] Smith MD HEMATOLOGY ORDERABLES Performing Organization Address City/[facility] [place] [address] (ABNORMAL) POCT Glucose (08/10/2017 4:01 AM EST) athologist Signature POC Glucose 206 (H) 65 - 199 [facility] mg/dL [facility] LABORATORY [...] Address City/State/ZIP Code Phon e Number [address] POCT Glucose (08/10/2017 2:01 [...] Address City/[facility]/[place] [address] (ABNORMAL) POCT Glucose (08/09/2017 [...] Address City/State/[place] [address] POCT Glucose (08/09/2017 8:55 [...] Address City/[facility]/[place] [address] (ABNORMAL) APTT (08/09/2017 6:42 [...] Smith MD HEMATOLOGY ORDERABLES Performing Organization Address City/[facility]/[place] [address] POCT Glucose (08/09/2017 4:41 PM EST) athologist Signature POC Glucose 195 65 - [address] [facility] LABORATORY [...] Address City/[facility]/[place] [address] POCT Glucose (08/09/2017 12:29 PM EST) athologist Signature POC Glucose 140 65 - [address] [facility]dL [facility] LABORATORY Comment: Supplemental ranges: <140 mg/dL before meals <180 mg/dL all other times of the day Specimen Anatomical Collection Method Collection Time Receive d Time (Source) Location / / Volume Laterality Blood specimen 08/09/2017 12:29 8 (specimen) PM EST 12:29 PM EST Yonathan Smith MD POINT OF CARE TEST ORDERABLE S Performing Organization Address [facility]/ZIP Code Phon e Number [address] POCT Glucose (08/09/2017 9:59 AM EST) P athologist Signature POC Glucose 135 65 - 199 [facility] mg/dL [facility] LABORATORY Comment: Supplemental ranges: <140 mg/dL before meals <180 mg/dL all other times of the day Specimen Anatomical Collection Method Collection Time Receive d Time (Source) Location / / Volume Laterality Blood specimen 08/09/2017 9:59 AM 018 9:59 (specimen) EST AM EST Yonathan Smith MD POINT OF CARE TEST ORDERABLE S Performing Organization Address [facility]/ZIP Code Phon e Number [address] Specimen to Pathology [...] Address City/[facility]/[place] [address] Surgical Pathology Report (08/09/2017 8:40 AM EST) Component Value Ref Test Analysis Performed At Patholo gist Range Method Time Signature Surgical [id number] ? Location: [facility]; [facility]; A [facility] Report The signing pathologist has (i) [...] [facility] [place] [place], [place], [place] CLINICAL INFORMATION Specimen Submitted: A - [...] City/State/[place] [address] Anaerobic Culture (08/09/2017 8:30 AM EST) [facility] [employer] Method Time Signature Anaerobic No anaerobic [facility] Culture organisms [facility] LABORATORY [...] - GENERAL ORDER ROBSON Performing Organization Address City/[facility]/[place] [address] (ABNORMAL) Abscess/Wound Aspirate Culture (08/09/2017 8:30 AM EST) [facility] Method Time Signature Abscess/Wound Moderate mixed [facility] Aspirate bacterial LEITER Culture morphotypes [facility] normal LABORATORY cutaneous leroy (A) Gram Stain Rare White Blood Cells [place] Few Gram Positive Cocci in pairs LEITER () [facility] LABORATORY Organism Gram Positive [place] Cocci in pairs LEITER () [facility] LABORATORY Specimen [...] - GENERAL ORDER ROBSON Performing Organization Address City/[facility]/ZIP Code Phon e Number [place] [id number]OSP[address] POCT Glucose (08/09/2017 4:28 AM EST) P athologist Signature POC Glucose 128 65 - 199 [place] mg/dL [facility] LABORATORY Comment: [...] Address City/State/[place] [address] ABORH Recheck Status (08/09/2017 1:10 AM EST) [facility] Method Time Signature ABORH Type Completed [facility] LABORATORY Specimen Anatomical Collection Method Collection Time Receive d Time (Source) Location / / Volume Laterality Blood specimen 08/09/2017 1:10 AM 018 1:35 (specimen) EST AM EST Resulting Agency Comment Spec In Lab Yonathan Smith MD BLOOD BANK ORDERABLES Performing Organization Address City/[facility]/[place] [address] Antibody screen (08/09/2017 1:10 AM EST) [facility] Method Time Signature Ab Screen Negative [facility] LABORATORY Expires at 08/12/2017 [facility] [id number] on: [facility] LABORATORY Specimen Anatomical Collection Method Collection Time Receive d Time (Source) Location / / Volume Laterality Blood specimen 08/09/2017 1:10 AM 018 1:35 (specimen) EST AM EST Resulting Agency Comment Spec In Lab Yonathan Smith MD BLOOD BANK ORDERABLES Performing Organization Address City/[facility]/[place] [address] ABO/Rh Typing (08/09/2017 1:10 AM EST) P athologist Signature ABORh Type O Pos [facility] LABORATORY Specimen Anatomical Collection Method Collection Time Receive d Time (Source) Location / / Volume Laterality Blood specimen 08/09/2017 1:10 AM 018 1:35 (specimen) EST AM EST Resulting Agency Comment Spec In Lab Yonathan Smith MD BLOOD BANK ORDERABLES Performing Organization Address City/[facility]/[place] [address] (ABNORMAL) APTT (08/09/2017 1:10 [...] City/State/[place] [address] (ABNORMAL) Differential, Automated (08/09/2017 1:10 AM EST) [facility] gist Method Time Signature Neutrophils % 76.2 % [facility] LABORATORY Neutr Abs (ANC) 8.59 (H) 1.70 - [facility] 6.10 [facility] x10(3)/[facility] LABORATORY Lymphocytes % 11.0 % [facility] LABORATORY Lymphocytes Abs 1.2 0.9 - 3.2 [facility] x10(3)/[facility] LABORATORY Monocytes % 8.4 % [facility] LABORATORY Monocyte Abs 1.0 (H) 0.3 - 0.9 [facility] x10(3)/[facility] LABORATORY Eosinophils % 3.5 % [facility] LABORATORY Eosinophils Abs 0.4 0.0 - 0.4 [facility] x10(3)/[facility] LABORATORY Basophils % 0.5 % [facility] LABORATORY Basophils Abs 0.1 0.0 - 0.1 [facility] x10(3)/[facility] LABORATORY Immature [...] Gran Abs 0.05 (H) 0.00 - 0.04 x10(3)/[facility] LABORATORY Specimen Anatomical Collection Method Collection Time Receive d Time (Source) Location / / Volume Laterality Blood specimen 08/09/2017 1:10 AM 018 1:19 (specimen) EST AM EST Resulting Agency Comment Spec In Lab Yonathan Smith MD HEMATOLOGY ORDERABLES Performing Organization Address City/State/[place] [address] (ABNORMAL) Hemogram (08/09/2017 1:10 AM EST) Analysis Performed At Patho logist Time Signature WBC 11.3 (H) 4.0 - 9.5 [facility] x10(3)/[facility] LABORATORY RBC 3.47 (L) 4.58 - [facility] 5.54 [facility] x10(6)/[facility] LABORATORY Hemoglobin 10.0 (L) 13.7 - [place] 16.5 gm/dL [facility] LABORATORY Hematocrit 31.9 (L) 40.5 - [place] 48.5 % [facility] LABORATORY MCV 91.9 82.9 - [place] 93.1 [facility] LABORATORY MCH 28.8 27.5 - [facility] RYAN 32.1 pg [facility] LABORATORY MCHC 31.3 (L) 32.0 - [place] 35.7 gm/dL [facility] LABORATORY Platelets 234 145 - 357 [facility] x10(3)/[facility] LABORATORY RDWSD 54.0 (H) 36.0 - [facility] RYAN 45.0 [facility] LABORATORY RDWCV 16.2 (H) 11.4 [facility] 13.8 % [facility] LABORATORY MPV 8.7 7.6 - 12.9 [facility] LABORATORY nRBC % Auto 0.0 % [facility] LABORATORY nRBC Abs Auto 0.000 0.000 - [place] RYAN 0.000 [facility] x10(3)/[facility] LABORATORY Specimen Anatomical Collection Method Collection Time Receive d Time (Source) Location / / Volume Laterality Blood specimen 08/09/2017 1:10 AM 018 1:19 (specimen) EST AM EST Resulting Agency Comment Spec In Lab Yonathan Smith MD HEMATOLOGY ORDERABLES Performing Organization Address [facility] [place] [address] (ABNORMAL) Prothrombin Time (08/09/2017 [...] Smith MD HEMATOLOGY ORDERABLES Performing Organization Address [facility] [place] [address] (ABNORMAL) Basic Metabolic Panel (non-fasting) (08/09/2017 1:10 AM EST) athologist Signature Glucose Lvl 108 65 - 199 [facility] mg/dL [facility] LABORATORY [...] CENTER LABORATORY Estimated GFR 45 (L) >=60 [facility] LABORATORY Comment: The reported eGFR should be multiplied b y 1.2 for patients. The MDRD is not an appropriate measure o f renal function for patients with body mass extremes or in patients with acute kidney failure. [email or web address] [email or web address]/DHMCnkf Specimen Anatomical Collection Method Collection Time Receive d Time (Source) Location / / Volume Laterality Blood specimen 08/09/2017 1:10 AM 018 1:19 (specimen) EST AM EST Resulting Agency Comment Spec In Lab Yonathan Smith MD CHEMISTRY ORDERABLES Performing Organization Address City/State/ZIP Code Phon e Number [address] POCT Glucose (08/09/2017 12:05 AM EST) athologist Signature POC Glucose 128 65 - 199 [facility] mg/dL [facility] LABORATORY [...] Address City/State/[place] [address] (ABNORMAL) POCT Glucose (08/08/2017 7:36 PM EST) athologist Signature POC Glucose 215 (H) 65 - 199 [facility] mg[facility]dL [facility] LABORATORY Comment: [...] Address City/[facility]/[place] [address] (ABNORMAL) POCT Glucose (08/08/2017 6:23 PM EST) athologist Signature POC Glucose 216 (H) 65 - 199 [facility] mg/dL [facility] LABORATORY [...] Address City/[facility]/[place] [address] (ABNORMAL) APTT (08/08/2017 6:00 [...] Smith MD HEMATOLOGY ORDERABLES Performing Organization Address City/[facility]/ZIP Code Phon [place] [address] POCT Glucose (08/08/2017 4:42 PM EST) athologist Signature POC Glucose 78 65 - [address] [facility]dL [facility] LABORATORY [...] Address City/State/[place] [address] (ABNORMAL) POCT Glucose (08/08/2017 4:01 PM EST) athologist Signature POC Glucose 58 (L) 65 - [address] [facility]dL [facility] LABORATORY [...] Address City/State/[place] [address] POCT Glucose (08/08/2017 11:51 AM EST) athologist Signature POC Glucose 90 65 - [address] [facility]/dL [facility] LABORATORY [...] Address City/State/[place] [address] (ABNORMAL) APTT (08/08/2017 10:27 [...] Smith MD HEMATOLOGY ORDERABLES Performing Organization Address City/[facility]/ZIP Code Phon e Number [address] POCT Glucose (08/08/2017 8:02 AM EST) athologist Signature POC Glucose 178 65 - 199 [facility] mg/dL [facility] LABORATORY [...] Address City/[facility]/[place] [address] (ABNORMAL) APTT (08/08/2017 4:51 AM EST) athologist Signature PTT >160 25 - 35 [facility] (Critical) sec [facility] [...] City/State/[place] [address] (ABNORMAL) Differential, Automated (08/08/2017 4:51 AM EST) [facility] gist Method Time Signature Neutrophils % 77.9 % [facility] LABORATORY Neutr Abs (ANC) 8.17 (H) 1.70 - [facility] 6.10 [facility] x10(3)/[facility] LABORATORY Lymphocytes % 10.3 % [facility] LABORATORY Lymphocytes Abs 1.1 0.9 - 3.2 [facility] x10(3)/[facility] LABORATORY Monocytes % 7.0 % [facility] LABORATORY Monocyte Abs 0.7 0.3 - 0.9 [facility] x10(3)/[facility] LABORATORY Eosinophils % 3.6 % [facility] LABORATORY Eosinophils Abs 0.4 0.0 - 0.4 [facility] x10(3)/[facility] LABORATORY Basophils % 0.5 % [facility] LABORATORY Basophils Abs 0.0 0.0 - 0.1 [facility] x10(3)/[facility] LABORATORY Immature [...] Gran Abs 0.07 (H) 0.00 - 0.04 x10(3)/[facility] LABORATORY Specimen Anatomical Collection Method Collection Time Receive d Time (Source) Location / / Volume Laterality Blood specimen 08/08/2017 4:51 AM 01/14/2 018 5:14 (specimen) EST AM EST Resulting Agency Comment Spec In Lab Yonathan Smith MD HEMATOLOGY ORDERABLES Performing Organization Address City/State/ZIP Code Phon e Number [address] (ABNORMAL) Hemogram (08/08/2017 4:51 AM EST) Analysis Performed At Patho logist Time Signature WBC 10.5 (H) 4.0 - 9.5 [facility] x[facility](3[facility] LABORATORY RBC 3.27 (L) 4.58 - [facility] 5.54 [facility] x10(6)/[facility] LABORATORY Hemoglobin 9.3 (L) 13.7 - [facility] 16.5 gm/dL [facility] LABORATORY Hematocrit 30.3 (L) 40.5 - [facility] 48.5 % [facility] LABORATORY MCV 92.7 82.9 - [facility] 93.1 [facility] LABORATORY MCH 28.4 27.5 - [facility] 32.1 pg [facility] LABORATORY MCHC 30.7 (L) 32.0 - [facility] 35.7 gm/dL [facility] LABORATORY Platelets 252 145 - 357 [facility] x10(3)/[facility] LABORATORY RDWSD 54.6 (H) 36.0 - [facility] 45.0 [facility] LABORATORY RDWCV 16.2 (H) 11.4 - [facility] RYAN 13.8 % [facility] LABORATORY MPV 9.1 7.6 - 12.9 [facility] LABORATORY nRBC % Auto 0.0 % [facility] LABORATORY nRBC Abs Auto 0.000 0.000 - [facility] 0.000 [facility] x10(3)/[facility] LABORATORY Specimen Anatomical Collection Method Collection Time Receive d Time (Source) Location / / Volume Laterality Blood specimen 08/08/2017 4:51 AM 018 5:14 (specimen) EST AM EST Resulting Agency Comment Spec In Lab Yonathan Smith MD HEMATOLOGY ORDERABLES Performing Organization Address City/State/[place] [address] (ABNORMAL) Prothrombin Time (08/08/2017 [...] Address City/State/[place] [address] (ABNORMAL) Basic Metabolic Panel (non-fasting) (08/08/2017 4:51 AM EST) athologist Signature Glucose Lvl 229 (H) 65 - 199 [facility] mg/dL [facility] LABORATORY [...] or in patients with acute kidney failure. [email or web address] [email or web address] Specimen Anatomical Collection Method Collection Time Receive d Time (Source) Location / / Volume Laterality Blood specimen 08/08/2017 4:51 AM 018 5:14 (specimen) EST AM EST Resulting Agency Comment Spec In Lab Yonathan Smith MD CHEMISTRY ORDERABLES Performing Organization Address City/[facility]/ZIP Code Phon e Number [address] POCT Glucose (08/08/2017 4:20 AM EST) athologist Signature POC Glucose 193 65 - 199 [place] mg/dL [facility] LABORATORY Comment: [...] Address City/[facility]/ZIP Code Phon e Number [address] POCT Glucose (08/07/2017 11:11 PM EST) athologist Signature POC Glucose 124 65 - [address] [facility]/dL [facility] LABORATORY [...] Address City/[facility]/[place] [address] (ABNORMAL) APTT (08/07/2017 10:18 [...] Address City/State/[place] [address] POCT Glucose (08/07/2017 8:10 PM EST) athologist Signature POC Glucose 140 65 - [address] [facility]/dL [facility] LABORATORY [...] Address City/State/[place] [address] POCT Glucose (08/07/2017 5:27 PM EST) athologist Signature POC Glucose 187 65 - 199 [place] mg/dL [facility] LABORATORY Comment: [...] Address City/[facility]/[place] [address] POCT Glucose (08/07/2017 3:29 PM EST) athologist Signature POC Glucose 86 65 - 199 [facility] mg/dL [facility] LABORATORY Comment: Supplemental ranges: <140 mg/dL before meals <180 mg/dL all other times of the day Specimen Anatomical Collection Method Collection Time Receive d Time (Source) Location / / Volume Laterality Blood specimen 08/07/2017 3:29 PM 018 3:29 (specimen) EST PM EST Yonathan Smith MD POINT OF CARE TEST ORDERABLE S Performing Organization Address [facility] [place] [address] (ABNORMAL) APTT (08/07/2017 2:50 [...] Smith MD HEMATOLOGY ORDERABLES Performing Organization Address City/[facility]/ZIP [facility] [place] [address] (ABNORMAL) POCT Glucose (08/07/2017 2:23 PM EST) athologist Signature POC Glucose 55 (L) 65 - 199 [place] mg/dL [facility] [...] Address City/State/ZIP Code Phon e Number [address] POCT Glucose (08/07/2017 12:08 PM EST) P athologist Signature POC Glucose 77 65 - [address] [facility]/dL [facility] LABORATORY [...] Address City/State/[place] [address] (ABNORMAL) Differential, Automated (08/07/2017 7:30 AM EST) Patholo gist Method Time Signature Neutrophils % 73.8 % [facility] LABORATORY Neutr Abs (ANC) 7.17 (H) 1.70 - [facility] 6.10 [facility] x10(3)/[facility] LABORATORY Lymphocytes % 12.2 % [facility] LABORATORY Lymphocytes Abs 1.2 0.9 - 3.2 [facility] x10(3)/[facility] LABORATORY Monocytes % 9.0 % [facility] LABORATORY Monocyte Abs 0.9 0.3 - 0.9 [facility] x10(3)/[facility] LABORATORY Eosinophils % 3.9 % [facility] LABORATORY Eosinophils Abs 0.4 0.0 - 0.4 [facility] x10(3)/[facility] LABORATORY Basophils % 0.6 % [facility] LABORATORY Basophils Abs 0.1 0.0 - 0.1 [facility] x10(3)/[facility] LABORATORY Immature [...] Gran Abs 0.05 (H) 0.00 - 0.04 x10(3)/[facility] LABORATORY Specimen Anatomical Collection Method Collection Time Receive d Time (Source) Location / / Volume Laterality Blood specimen 08/07/2017 7:30 AM 018 7:45 (specimen) EST AM EST Resulting Agency Comment Spec In Lab Yonathan Smith MD HEMATOLOGY ORDERABLES Performing Organization Address City/State/ZIP Code Phon e Number [place] [id number] (ABNORMAL) Hemogram (08/07/2017 7:30 AM EST) Analysis Performed At Patho logist Time Signature WBC 9.7 (H) 4.0 - 9.5 [facility] x10(3)/[facility] LABORATORY RBC 3.54 (L) 4.58 - [facility] 5.54 [facility] x10(6)/[facility] LABORATORY Hemoglobin 9.9 (L) 13.7 [facility] 16.5 gm/dL [facility] LABORATORY Hematocrit 32.3 (L) 40.5 [facility] 48.5 % [facility] LABORATORY MCV 91.2 82.9 [facility] 93.1 [facility] LABORATORY MCH 28.0 27.5 [facility] 32.1 pg [facility] LABORATORY MCHC 30.7 (L) 32.0 [facility] 35.7 gm/dL [facility] LABORATORY Platelets 312 145 - 357 [facility] x10(3)/[facility] LABORATORY RDWSD 53.2 (H) 36.0 [facility] RDWCV 16.0 (H) 11.4 - [facility] 13.8 % [facility] LABORATORY MPV 8.9 7.6 - 12.9 [facility] LABORATORY nRBC % Auto 0.0 % [facility] LABORATORY nRBC Abs Auto 0.000 0.000 - [facility] 0.000 [facility] x10(3)/[facility] LABORATORY Specimen Anatomical Collection Method Collection Time Receive d Time (Source) Location / / Volume Laterality Blood specimen 08/07/2017 7:30 AM 018 7:45 (specimen) EST AM EST Resulting Agency Comment Spec In Lab Yonathan Smith MD HEMATOLOGY ORDERABLES Performing Organization Address City/State/[place] [address] (ABNORMAL) Basic Metabolic Panel (non-fasting) (08/07/2017 7:30 AM EST) athologist Signature Glucose Lvl 80 65 - 199 [facility] mg/dL [facility] LABORATORY [...] or in patients with acute kidney failure. [email or web address] [email or web address] Specimen Anatomical Collection Method Collection Time Receive d Time (Source) Location / / Volume Laterality Blood specimen 08/07/2017 7:30 AM 018 7:45 (specimen) EST AM EST Resulting Agency Comment Spec In Lab Yonathan Smith MD CHEMISTRY ORDERABLES Performing Organization Address City/[facility]/ZIP [facility] Phon e Number [address] POCT Glucose (08/07/2017 7:27 AM EST) athologist Signature POC Glucose 81 65 - 199 [facility] mg/dL [facility] LABORATORY Comment: Supplemental ranges: <140 mg/dL before meals <180 mg/dL all other times of the day Specimen Anatomical Collection Method Collection Time Receive d Time (Source) Location / / Volume Laterality Blood specimen 08/07/2017 7:27 AM 018 7:27 (specimen) EST AM EST Yonathan Smith MD POINT OF CARE TEST ORDERABLE S Performing Organization Address City/[facility] Phon e Number [address] APTT (08/07/2017 7:04 AM [...] Address City/State/[place] [address] (ABNORMAL) Prothrombin Time (08/07/2017 [...] Address City/State/[place] [address] POCT Glucose (08/07/2017 4:03 AM EST) athologist Signature POC Glucose 93 65 - 199 [place] mg/dL [facility] LABORATORY Comment: [...] Address City/State/[place] [address] POCT Glucose (08/07/2017 12:04 AM EST) athologist Signature POC Glucose 107 65 - 199 [place] mg/dL [facility] LABORATORY Comment: [...] Address City/[facility]/ZIP Code Phon e Number [address] POCT Glucose (08/06/2017 7:56 PM EST) P athologist Signature POC Glucose 178 65 - 199 [facility] mg/dL [facility] LABORATORY [...] Address City/State/ZIP Code Phon e Number [address] [id number] (08/06/2017 2:32 PM EST) Component Value Ref Test Analysis Performed At Patholo gist Range Method Time Signature VB Text Department: Vascular Surgery Lab VASCUBASE Report Patient: [id number] (GREGORY HOANG) CPT: 1623438 ICD10: I99.8 Referring Physician: YONATHAN SMITH ?? [...] 172 (New Bag - Provider: Chiquis cho, VMASI)1756 (Stopped - Provider: Henrique Marks RN) 171 [...]
Routine documented in this encounter Care Teams Transport Driver Relationship Specialty Start Date End Date Lovely Vicente MD PCP - General 04/16/[address] [place] [address] [address] [place] [address] documented as of this encounter
--- OUTSIDE RECORDS SUMMARY | 2022-05-01 08:57 | XMS_ITS | Encounter Summary ---
:1945 [place] [address] Care Team Providers Name Role Phone Lovely Vicente MD Primary Care Provider Encounter Details Date Type Department Care Team Description 08/04/2017 Notes Only Pain Management at [facility] Bruno, ST[facility] [place] [address] [place] [address] [phone] (Wo rk) Social History Tobacco Use Types [...] bid) at this time. Barbra Soares, MSN, GRINDER OPERATOR TOOL-BC, [facility] documented in this encounter Plan of Treatment Upcoming Encounters Date Type Specialty Care Team Description 05/28/2022 Appointment Cardiology Zulma Dolan MD [facility] [address] [place], [place] [address] (Wo rk) 05/28/2022 Laboratory Appointment Lab 05/28/2022 Office Visit Cardiology Zulma Dolan MD [facility] [place] [address] Liz Poole PA [facility] [place] [address] 06/10/2022 Office Visit Dermatology Laura Scherer MD [facility] [address] [place], [place] [address] (Wo rk) documented as of this encounter Visit Diagnoses Not on filedocumented in this encounter Care Teams Rental Boats Caretaker Relationship Specialty Start Date End Date Lovely Vicente MD PCP - General 04/16/[address] [place] [address] documented as of this encounter
--- OUTSIDE RECORDS SUMMARY | 2022-05-01 08:57 | XMS_ITS | Encounter Summary ---
:1945 Author Organization [facility] [place] [address] Care Team Providers Name Role Phone Lovely Vicente MD Primary Care Provider Reason for Visit Reason Comments Foot Ulcer WOUND CHECK Auth/Cert Specialty Diagnoses / Procedures Referred By Contact Refer red To Contact Diagnoses Critical lower limb ischemia CELLULITIS RT FOOT Procedures EMERGENCY Referral ID Status Reason Start Date Expiration Date Visits Requ ested Visits Authorized [id number] 1 1 Encounter Details Date Type Department Care Team Description 08/06/2017 [facility] ischemia [facility] [address] [place], [place] VASCULAR SURGERY [id number] [place] [address] [phone] Social History Tobacco Use Types Packs/Day Years [...] Smith MD - 08/06/2017 1:00 PM EST [facility] staff: 1. RIGHT leg CLI Interval Hx: [...] Dolan MD [facility] [address], [place] [address] (Wo ) 05/28/2022 Laboratory Appointment Lab 05/28/2022 Office Visit Cardiology Zulma Dolan MD [facility] [place] [address] Liz Poole PA [facility] [place] [address] 06/10/2022 Office Visit Dermatology Laura Scherer MD [facility] [address] [place], [place] [address] (Wo rk) documented as of this encounter Visit Diagnoses Diagnosis Critical lower limb ischemia Unspecified circulatory system disorder documented in this encounter Care Teams Global Climate Change Researcher Relationship Specialty Start Date End Date Lovely Vicente MD PCP - General 04/16/[address] [place], [place] [id number] documented as of this encounter
--- OUTSIDE RECORDS SUMMARY | 2022-05-01 08:57 | XMS_ITS | Encounter Summary ---
:1945 Author Organization [facility] [address] Care Team Providers Name Role Phone Lovely Vicente MD Primary Care Provider Reason for Visit Auth/Cert Specialty Diagnoses / Procedures Referred By Contact Refer red To Contact Diagnoses Critical lower limb ischemia CELLULITIS RT FOOT Procedures EMERGENCY Referral ID Status Reason Start Date Expiration Date Visits Requ ested Visits Authorized [id number] 1 1 Encounter Details Date Type Department Care Team Description 08/09/2017 Surgery Main Operating Room Yonathan Smith AM PUTATION, Mary Hitchcock MD TRANSMETATARSAL ([facility] 12.71) [facility] [address] [place] [address] [place] [address] [phone] Social History Tobacco Use Types Packs/Day Years [...] 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 0.94 ??[place]-Biphasic ? Posterior Tibial (Ankle) Artery ??154 ? 1.10 ??[place]-Biphasic ? Fourth Toe ? 67 ?0.48 ?? [...] Conditions/Prognosis: Good Discharge to: [facility] Rehab Discharge Medications: Your Medications New Medications [...] For any problems or questions please call [phone] ZELDA Smith, boat deckhand Nurse Clinician For issues on weeknights after 5pm and weekends please call [phone] and ask for the Vascular Fellow associate professor of communication. General Instructions None Future Appointments and Orders Future Appointments Provider Department Dept Phone 08/26/2017 4:00 PM Aurelia Rivera PA Vascular Surgery at [place] [phone] 09/07/2017 3:00 PM LAB, THREE L Lab 3L [facility] [phone] 09/07/2017 4:00 PM Luz Prescott MD Endocrinology at [place] [phone] 09/09/2017 8:00 AM Barbra Soares APRN Pain Management at [place] [phone] Please bring a list of your current [...] For any problems or questions please call [phone] ZELDA Smith, boat deckhand Nurse Clinician For issues on weeknights after 5pm and weekends please call [phone] and ask for the Vascular Fellow associate professor of communication. documented in this encounter Medications at Time [...] Management Discharge Note Patient Destination: [facility] ([facility]) [address] [id number] Transportation: with (at bedside) Time of Discharge: by 12 noon Level of Care: swing Patient Aware: yes Family Notified: yes Md to call report to: Yissel Quintero ENVELOPE MACHINE OPERATOR already called RN to call report to: [phone] Shirin Wolf Office of Care Management Pager [phone] Shirin Wolf RN - 08/16/2017 10:50 AM EST [facility] has offered pt swing bed. Pt and accept bed. will transport via car. ENVELOPE MACHINE OPERATOR Yissel Quintero aware; d/c paperwork will be completed by 12 noon. [facility] requests pt arrival by 1400 today; ENVELOPE MACHINE OPERATOR, RN, and family aware. ENVELOPE MACHINE OPERATOR called [facility] and was told that they prefer pt to arrive with wound vac dressing applied but clamped. ENVELOPE MACHINE OPERATOR applied new wound vac dressing. RN has [facility] number to call report. PASSR completed; ENVELOPE MACHINE OPERATOR paged to request provider signature in highlighted space. Indigo from [facility] notified via email that home wound vac now cancelled; [facility] has picked up from room and order cancelled. Packet started and provided to gunstock spray unit adjuster. Medicare important message explained to patient, patient signed. Copy provided to patient and signature page to OCM for inclusion in pt EMR. L Radha Powers Yoselin - 08/16/2017 10:34 AM EST Office of Care Management/Parts Room Clerk Patient Name: Gregory Hoang : 1945 Patient has been offered a swing bed at [facility]. The patient will be transported by private transportation. No MD to MD report necessary Please call Nursing Report to [phone], ask for support architect. Info to accompany patient: Narcotic Prescriptions Copies of Medication Administration Records and IV sheets for past 10 days. Plan: Parts Room Clerk will be available to the patient and Physical Education Instructor-RN and/or Remote Sensing Program Manager for further assistance. Patient will be discharged to: [place] [address] [id number] Radha Powers, Parts Room Clerk Mira Truong, VAMSI - 08/15/2017 10:05 PM EST [address] Flores to ask if he wanted to hold metoprolol dose. BP 95/58. OK to hold this dose Courtney Brito - 08/15/2017 3:26 PM EST Office of Care Management(OCM)/Parts Room Clerk(RS)/ D/C Planning re : Patient is medically ready for d/c today. RS has been in contact with [facility] to see if they could offer a bed. [facility] is still reviewing the case and need their MD to review chart prior to accepting or declining. OCM team needs to check in with [facility] tomorrow to check on status. 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 Vac in [...] referral to: [facility] PHONE: [phone] FAX: [phone] CM spoke with RS who said that [...] rehab. Await recommendations from PT. Covering pager #[phone]. 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 Book Cleaner Kaitlin Saha, RN Pager #[phone] Payam Rosales - 08/13/2017 2:37 PM EST Molecular Physicist Encounter Note Patient Name: Gregory Hoang : [id number] MR#: [id number] Admit Date: 08/06/2017 1:41 PM Hospital Day 7 days Narrative: Visited to introduce and assess acceptance of Molecular Physicist services. Pt was awake, alert, oriented and in chair and family was there. Assessment:Patient coping positively with stresses of illness/hospitalization at this time. Pt says that he is hoping to get better and his family was there. Pt says that he has family care and supportand taking one day at time. Intervention and Outcome: Provided emotional support and encouraging presence. 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 A letter describing our affiliations was reviewed with them and theywere educated about their right to choose where referrals are placed. Patient requests referral to [facility] [employer]. PHONE: [phone] FAX: [phone]. And Home NPWT (Negative Pressure Wound Therapy) aka wound vac device made available to pt. Serial # confirmed. Reviewed [facility] Proof of Delivery/Assignment of Benefits Statement(POD/AOB) Form w patient or authorized agent signing on behalf of patient. Copy of POD/AOB provided to pt and other copy faxed to [employer] @ fax# [phone] Expected date of discharge: 08/12/2017. 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 Address: [address] [place] [address] [place] [address] (home) Mobile: Telephone Information: Referring Provider: No [...] 7.93) performed by Yuan Retana MD at [facility] OR ??? 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 Vascular resident associate professor of communication and will forward result to the team prior to rounds. 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 Completion RLE angiogram 6. L PRINTING PRESS MACHINE OPERATOR angiogram 7. 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 - L PRINTING PRESS MACHINE OPERATOR angriogram demonstrated: High femoral bifurcation over the proximal half of the femoral head. L PRINTING PRESS MACHINE OPERATOR access in the distal L PRINTING PRESS MACHINE OPERATOR. - Closure device: Mynx Technical [...] for a 45cm 5F Destination. V18 and [place] and QuickCross catheters were used to select [...] 5F. A stationed picture of the L PRINTING PRESS MACHINE OPERATOR was performed as the patient was noted to have a very high bifurcation. Access appeared in the distal R PRINTING PRESS MACHINE OPERATOR. Closure and sheath removal was [...] PM EST 1440 report called to 5 axtell nurse Tessa RN documented in this encounter [...] and pt's spouse. Discharge to [facility]. Goal: Individualization & Mutuality Outcome: Outcome (s) [...] -- 0 Score -- -- 85 OTHER Mrak Fall Risk -- -- High 08/16/17 1023 [...] sit/sit to supine -- Bed Mobility Goal, Caswell Level independent -- Bed Mobility Goal, Date [...] days -- Transfer Training Goal, Activity Type tuc-tl-psmfc/ibjtt-os-uwq -- Transfer Train Goal, Caswell Level conditional independence -- Transfer Train Goal, [...] call cabello within reach, Hourly rounding by RN/INK TECHNICIAN. Bed alarm / Chair alarm. Patient-specific [...] Smith MD - 08/15/2017 6:28 PM EST [facility] Operative Note Patient Name: Gregory Hoang : [id number] MR#: [id number] Case Date: 08/09/2017 Surgeon: Surgeon(s) and Role: [...] 2.5x80 5. Completion RLE angiogram 6. L PRINTING PRESS MACHINE OPERATOR angiogram 7. Mynx closure Precautions/Restrictions: [...] bed -> bathroom). Anticipated Discharge Disposition: senior care facility, other (see comments) (or swing bed) Pager: [phone] BASSAM ELIAS, PT 08/14/2017 Inpatient Physical Therapy [...] to Achieve by discharge Gait Training Goal, Caswell Level conditional independence;set up required Gait Training [...] over the weekend except for [facility]. CM spoke with [facility] CM Drea Sandhu, VAMSI who said that they do not anticipate any beds over the weekend. Reviewed with patient/ that they need to be aware that patient will need to take the first bed offered at the facilities that they make referrals to. Their choices are: 1- [facility] PHONE: [phone] FAX: [phone] 2- [facility] ([facility]) [address] [place] [address] 3- [facility]) [address] [place] [address] I have discussed Medicare/Private Insurance [...] RS/CM on Wednesday to follow-up. Covering pager #[phone] for today. Plan of Care - Henrique [...] with additional findings of pseudoaneurysm on R PRINTING PRESS MACHINE OPERATOR and bilateral anterior tibial artery [...] an outpatient once discharged. Have patient call [phone] to set up an appointment. Follow-up: Dermatology will sign-off for now. Please do not hesitate to contact us if you have any questions orconcerns. Impression and Recommendations discussed with primary team on 08/13/2017. Karo Henderson MD Resident in Dermatology Section of Dermatology, Department of Surgery [facility] Pager [phone] Patient seen and evaluated with staff Serging Machine Operator Automatic: Halima Cordero MD Section of Dermatology [facility] [...] Outcome: Ongoing (Interventions Implemented as Appropriate) 08/12/17 5916 Coping/Psychosocial Plan Of Care Reviewed With patient;spouse [...] 2.5x80 5. Completion RLE angiogram 6. L PRINTING PRESS MACHINE OPERATOR angiogram 7. Mynx closure Active [...] home with home health ([facility] PT[facility]) Pager: [phone] YASIR TELLO OT 08/12/2017 Occupational Therapy Rehabilitation [...] 2.5x80 5. Completion RLE angiogram 6. L PRINTING PRESS MACHINE OPERATOR angiogram 7. Mynx closure Past [...] with 24/7 assistance and maximal services) Pager: [phone] NICHOLAS MORA, PT 08/12/2017 Physical Therapy Rehabilitation [...] sit/sit to supine -- Bed Mobility Goal, Caswell Level independent -- Bed Mobility Goal, Outcome Achieved -- goal ongoing Goal: Gait Training Goal Stand Alone Therapy Goal Outcome: Ongoing (Interventions Implemented as Appropriate) 08/11/17 1310 08/12/17 1510 Gait Training Goal Gait Training Goal, Date Established 08/11/17 -- Gait Training Goal, Time to Achieve 5 - 7 days -- Gait Training Goal, Caswell Level conditional independence -- Gait Training Goal, [...] days -- Transfer Training Goal, Activity Type sqc-co-tadbs/lezrr-fz-htw -- Transfer Train Goal, Caswell Level conditional independence -- Transfer Training Goal, [...] Smith MD - 08/11/2017 2:52 PM EST [facility] Operative Note Patient Name: Gregory Hoang : [id number] MR#: [id number] Case Date: 08/11/2017 Surgeon: Surgeon(s) and Role: [...] 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 Completion RLE angiogram 6. L PRINTING PRESS MACHINE OPERATOR angiogram 7. Mynx closure He [...] Anticipated Discharge Disposition: inpatient rehabilitation facility Pager: [phone] LAWRENCE GONZALEZ, PT 08/11/2017 Physical Therapy Rehabilitation [...] to sit/sit to supine Bed Mobility Goal, Caswell Level independent Goal: Gait Training Goal Stand Alone Therapy Goal Outcome: Ongoing (Interventions Implemented as Appropriate) 08/11/17 1310 Gait Training Goal Gait Training Goal, Date Established 08/11/17 Gait Training Goal, Time to Achieve 5 - 7 days Gait Training Goal, Caswell Level conditional independence Gait Training Goal, Assist [...] 7 days Transfer Training Goal, Activity Type gpe-uv-ikgnf/lssdr-vi-bea Transfer Train Goal, Caswell Level conditional independence Plan of David DelloAnnetta [...] call cabello within reach, Hourly rounding by RN/INK TECHNICIAN. Bed alarm / Chair alarm. ? [...] 04/05/2013 Hospitalizations Within the Past 30 Days: [facility] 07/20/2017 Anticipated Length Of Stay (If known): Expected Length of Hospitalization: 5-7 days2-3 days Current Decision-Making Capacity: Alert and oriented x 4 Advance Care Planning: on file Kisha Hoang [facility] [phone] Current Coping/Education/Information Needs: pt and spouse state [...] Health/Prescription Coverage: Primary Insurance: MEDICARE Secondary Insurance: [employer] [place] Prescription Coverage: See above Preferred Pharmacy: [email or web address] Other: N/A Primary Care Provider: Lovely Vicente MD [phone] Patient/Caregiver Goals of Treatment: Patient plans to [...] of care planning. Kaitlin Saha RN Pager: [phone] Plan of Care - Melba Jaramillo RN [...] Overview Goal: Plan of Care Review 08/08/17 3724 Coping/Psychosocial Plan Of Care Reviewed With patient [...] call cabello within reach, Hourly rounding by RN/INK TECHNICIAN. Bed alarm / Chair alarm. Patient-specific fall prevention interventions for sensory deficits provided, if applicable: [X] Yes CPG GOAL OUTCOME EVALUATION: Goal: Fall Prevention-Safe Patient Handling Outcome: Ongoing (Interventions Implemented as Appropriate) 08/06/17 1700 08/06/17199908/07/17 7124 Positioning Body Position -- up in chair [...] at bedside and MD TEAM Carrying pager [phone] contacted (via Radio page) and notified of [...] Cardiology Zulma Dolan MD [facility] [place], [place] [address] (Wo rk) 05/28/2022 Laboratory Appointment Lab 05/28/2022 Office Visit Cardiology Zulma Dolan MD [facility] [place] [address] Liz Poole PA [facility] [place] [address] 06/10/2022 Office Visit Dermatology Laura Scherer MD [facility] [address] [place], [place] [address] (Wo rk) documented as of [...] section. TYPE AND SCREEN Routine 08/09/2017 1:10 ([facility] [...] 160 65 - 199 [place] mg/dL [facility] Comment: Supplemental ranges: [...] City/State/[place] [address] [facility] [address] (ABNORMAL) Differential, Automated (08/16/2017 5:08 AM EST) [facility] Method Time Signature Neutrophils % 73.9 % [facility] Neutr Abs (ANC) 5.37 1.70 - [facility] 6.10 [facility] x10(3)/[facility] LABORATORY Lymphocytes % 10.1 % [facility] Lymphocytes Abs 0.7 (L) 0.9 - 3.2 [facility] x10(3)/[facility] LABORATORY Monocytes % 10.1 % [facility]ORY Monocyte Abs 0.7 0.3 - 0.9 [facility] x10(3)/[facility] LABORATORY Eosinophils % 5.1 % [facility] Eosinophils Abs 0.4 0.0 - 0.4 [facility] x10(3)/[facility] LABORATORY Basophils % 0.4 % [facility] Basophils Abs 0.0 0.0 - 0.1 [facility] x10(3)/[facility] LABORATORY Immature Gran % 0.40 [...] Gran Abs 0.03 0.00 - 0.04 x10(3)/[facility] LAB[facility] Specimen Anatomical Collection Method Collection Time Receive d Time (Source) Location / / Volume Laterality Blood specimen 08/16/2017 5:08 AM 018 5:20 (specimen) EST AM EST Resulting Agency Comment Spec In Lab Yonathan Smith MD HEMATOLOGY ORDERABLES Performing Organization Address City/State/[place] [address] [facility] [address] (ABNORMAL) Hemogram (08/16/2017 5:08 AM EST) Analysis Performed At Patho logist Time Signature WBC 7.3 4.0 - 9.5 [facility] x10(3)/[facility] LABORATORY RBC 3.36 (L) 4.58 - [facility] x10(6)/[facility] LABORATORY Hemoglobin 9.7 (L) 13.7 - [facility] 16.5 gm/dL [facility] Hematocrit 30.3 (L) 40.5 - [facility] 48.5 % [facility] MCV 90.2 82.9 - [facility] 93.1 [facility] LABORATORY MCH 28.9 27.5 - [facility] 32.[address] [facility] MCHC 32.0 32.0 - [facility] 35.7 gm/dL [facility] Platelets 282 145 - 357 [facility] x10(3)/[facility] LABORATORY RDWSD 53.9 (H) 36.0 - [facility] 45.0 [facility] LABORATORY RDWCV 16.5 (H) 11.4 - [facility] 13.8 % [facility] LAB[facility]ORY MPV 9.0 7.6 - 12.9 [facility] LABORATORY nRBC % Auto 0.0 % [facility] LABOR[facility]ORY nRBC Abs Auto 0.000 0.000 - [facility] 0.000 [facility] x10(3)/[facility] LABORATORY Specimen Anatomical Collection Method Collection Time Receive d Time (Source) Location / / Volume Laterality Blood specimen 08/16/2017 5:08 AM 018 5:20 (specimen) EST AM EST Resulting Agency Comment Spec In Lab Yonathan Smith MD HEMATOLOGY ORDERABLES Performing Organization Address City/State/[place] [address] (ABNORMAL) Basic Metabolic Panel (non-fasting) (08/16/2017 5:08 AM EST) P athologist Signature Glucose Lvl 141 65 - 199 [facility] mg/dL [facility] [...] in patients with acute kidney failure. [email or web address] [email or web address] [email or web address] [email or web address] Specimen Anatomical Collection Method Collection Time Receive d Time (Source) Location / / Volume Laterality Blood specimen 08/16/2017 5:08 AM 018 5:20 (specimen) EST AM EST Resulting Agency Comment Spec In Lab Yonathan Smith MD CHEMISTRY ORDERABLES Performing Organization Address City/State/[place] [address] (ABNORMAL) Prothrombin Time (08/16/2017 [...] Smith MD HEMATOLOGY ORDERABLES Performing Organization Address City/[facility]/ZIP Code Phon e Number [address] POCT Glucose (08/16/2017 4:09 AM EST) athologist Signature POC Glucose 147 65 - 199 [facility] RYAN mg/dL [facility] Comment: Supplemental ranges: <140 mg/dL before meals <180 mg/dL all other times of the day Specimen Anatomical Collection Method Collection Time Receive d Time (Source) Location / / Volume Laterality Blood specimen 08/16/2017 4:09 AM 018 4:09 (specimen) EST AM EST Yonathan Smith MD POINT OF CARE TEST ORDERABLE S Performing Organization Address City/[facility]/ZIP Code Phon e Number [address] POCT Glucose (08/15/2017 11:56 PM EST) athologist Signature POC Glucose 176 65 - 199 [place] mg/dL [facility] Comment: Supplemental ranges: <140 mg/dL before meals <180 mg/dL all other times of the day Specimen Anatomical Collection Method Collection Time Receive d Time (Source) Location / / Volume Laterality Blood specimen 08/15/2017 11:56 8 (specimen) PM EST 11:56 PM EST Yonathan Smith MD POINT OF CARE TEST ORDERABLE S Performing Organization Address City/[facility]/ZIP Code Phon e Number [address] POCT Glucose (08/15/2017 8:05 PM EST) athologist Signature POC Glucose 136 65 - 199 [place] mg/dL [facility] Comment: Supplemental ranges: <140 mg/dL before meals <180 mg/dL all other times of the day Specimen Anatomical Collection Method Collection Time Receive d Time (Source) Location / / Volume Laterality Blood specimen 08/15/2017 8:05 PM 018 8:05 (specimen) EST PM EST Yonathan Smith MD POINT OF CARE TEST ORDERABLE S Performing Organization Address City/State/[place] [address] (ABNORMAL) POCT Glucose (08/15/2017 4:50 PM EST) athologist Signature POC Glucose 232 (H) 65 - 199 [place] [place] mg/dL [facility] Comment: Supplemental ranges: <140 mg/dL before meals <180 mg/dL all other times of the day Specimen Anatomical Collection Method Collection Time Receive d Time (Source) Location / / Volume Laterality Blood specimen 08/15/2017 4:50 PM 018 4:50 (specimen) EST PM EST Yonathan Smith MD POINT OF CARE TEST ORDERABLE S Performing Organization Address City/State/[place] [address] POCT Glucose (08/15/2017 12:04 PM EST) athologist Signature POC Glucose 135 65 - 199 [place] mg/dL [facility] Comment: Supplemental ranges: <140 mg/dL before meals <180 mg/dL all other times of the day Specimen Anatomical Collection Method Collection Time Receive d Time (Source) Location / / Volume Laterality Blood specimen 08/15/2017 12:04 8 (specimen) PM EST 12:04 PM EST Yonathan Smith MD POINT OF CARE TEST ORDERABLE S Performing Organization Address City/State/[place] [address] POCT Glucose (08/15/2017 7:36 AM EST) athologist Signature POC Glucose 124 65 - 199 [place] mg/dL [facility] Comment: Supplemental ranges: [...] City/State/[place] [address] (ABNORMAL) Differential, Automated (08/15/2017 6:22 AM EST) [facility] Method Time Signature Neutrophils % 76.1 % [facility] Neutr Abs (ANC) 6.62 (H) 1.70 - [facility] 6.10 [facility] x10(3)/[facility] LABORATORY Lymphocytes % 9.3 % [facility] Lymphocytes Abs 0.8 (L) 0.9 - 3.2 [facility] x10(3)/[facility] LABORATORY Monocytes % 9.4 % [facility] Monocyte Abs 0.8 0.3 - 0.9 [facility] x10(3)/[facility] LABORATORY Eosinophils % 4.0 % [facility] Eosinophils Abs 0.4 0.0 - 0.4 [facility] x10(3)/[facility] LABORATORY Basophils % 0.6 % [facility] Basophils Abs 0.0 0.0 - 0.1 [facility] x10(3)/[facility] [...] (H) 0.00 - 0.04 x10(3)/[facility] LABORATORY Specimen Anatomical Collection Method Collection Time Receive d Time (Source) Location / / Volume Laterality Blood specimen 08/15/2017 6:22 AM 018 6:33 (specimen) EST AM EST Resulting Agency Comment Spec In Lab Yonathan Smith MD HEMATOLOGY ORDERABLES Performing Organization Address City/[facility]/ZIP Code Phon e Number [address] (ABNORMAL) Hemogram (08/15/2017 6:22 AM EST) Analysis Performed At Patho logist Time Signature WBC 8.7 4.0 - 9.5 [facility](3[facility] LABORATORY RBC 3.21 (L) 4.58 - [place] 5.54 [facility] x10(6)/[facility] LABORATORY Hemoglobin 9.1 (L) 13.7 - [facility] 16.5 [facility]m/dL [facility] Hematocrit 29.0 (L) 40.5 - [facility] 48.5 % [facility] MCV 90.3 82.9 - [facility] 93.1 [facility] LABORATORY MCH 28.3 27.5 - [facility] RYAN 32.[address] [facility] MCHC 31.4 (L) 32.0 - [facility] 35.7 gm/dL [facility] Platelets 254 145 - 357 [facility] x10(3)/[facility] LABORATORY RDWSD 53.9 (H) 36.0 - [facility] RYAN 45.0 [facility] LABORATORY RDWCV 16.3 (H) 11.4 - [facility] RYAN 13.8 % [facility] MPV 8.8 7.6 - 12.9 [facility] LABORATORY nRBC % Auto 0.0 % [facility] nRBC Abs Auto 0.000 0.000 - [facility] RYAN 0.000 [facility] x10(3)/[facility] LABORATORY Specimen Anatomical Collection Method Collection Time Receive d Time (Source) Location / / Volume Laterality Blood specimen 08/15/2017 6:22 AM 018 6:33 (specimen) EST AM EST Resulting Agency Comment Spec In Lab Yonathan Smith MD HEMATOLOGY ORDERABLES Performing Organization Address City/State/ZIP Code Phon e Number [facility] [place] [address] (ABNORMAL) Basic Metabolic Panel (non-fasting) (08/15/2017 6:22 AM EST) P athologist Signature Glucose Lvl 118 65 - 199 [facility] mg/dL [facility] [...] or in patients with acute kidney failure. [email or web address] Specimen Anatomical Collection Method Collection Time Receive d Time (Source) Location / / Volume Laterality Blood specimen 08/15/2017 6:22 AM 018 6:33 (specimen) EST AM EST Resulting Agency Comment Spec In Lab Yonathan Smith MD CHEMISTRY ORDERABLES Performing Organization Address City/State/ZIP Code Phon e Number [address] (ABNORMAL) Prothrombin Time (08/15/2017 [...] Address City/State/ZIP Code Phon e Number [address] POCT Glucose (08/15/2017 4:33 AM EST) athologist Signature POC Glucose 164 65 - 199 [facility] Comment: Supplemental ranges: <140 mg/dL before meals <180 mg/dL all other times of the day Specimen Anatomical Collection Method Collection Time Receive d Time (Source) Location / / Volume Laterality Blood specimen 08/15/2017 4:33 AM 018 4:33 (specimen) EST AM EST Yonathan Smith MD POINT OF CARE TEST ORDERABLE S Performing Organization Address City/State/ZIP Code Phon e Number [address] POCT Glucose (08/15/2017 12:12 AM EST) athologist Signature POC Glucose 89 65 - 199 [facility] Comment: Supplemental ranges: <140 mg/dL before meals <180 mg/dL all other times of the day Specimen Anatomical Collection Method Collection Time Receive d Time (Source) Location / / Volume Laterality Blood specimen 08/15/2017 12:12 8 (specimen) AM EST 12:12 AM EST Yonathan Smith MD POINT OF CARE TEST ORDERABLE S Performing Organization Address City/State/ZIP Code Phon e Number [address] (ABNORMAL) POCT Glucose (08/14/2017 8:07 PM EST) athologist Signature POC Glucose 204 (H) 65 - 199 [place] mg/dL [facility] Comment: Supplemental ranges: <140 mg/dL before meals <180 mg/dL all other times of the day Specimen Anatomical Collection Method Collection Time Receive d Time (Source) Location / / Volume Laterality Blood specimen 08/14/2017 8:07 PM 018 8:07 (specimen) EST PM EST Yonathan Smith MD POINT OF CARE TEST ORDERABLE S Performing Organization Address City/[facility]/[place] [address] POCT Glucose (08/14/2017 5:11 PM EST) athologist Signature POC Glucose 174 65 - 199 [place] mg/dL [facility] Comment: Supplemental ranges: <140 mg/dL before meals <180 mg/dL all other times of the day Specimen Anatomical Collection Method Collection Time Receive d Time (Source) Location / / Volume Laterality Blood specimen 08/14/2017 5:11 PM 018 5:11 (specimen) EST PM EST Yonathan Smith MD POINT OF CARE TEST ORDERABLE S Performing Organization Address City/State/[place] [address] POCT Glucose (08/14/2017 12:10 PM EST) athologist Signature POC Glucose 141 65 - 199 [place] mg/dL [facility] Comment: Supplemental ranges: <140 mg/dL before meals <180 mg/dL all other times of the day Specimen Anatomical Collection Method Collection Time Receive d Time (Source) Location / / Volume Laterality Blood specimen 08/14/2017 12:10 8 (specimen) PM EST 12:10 PM EST Yonahtan Smith MD POINT OF CARE TEST ORDERABLE S Performing Organization Address City/State/ZIP Code Phon e Number [address] POCT Glucose (08/14/2017 8:07 AM EST) P athologist Signature POC Glucose 158 65 - 199 [facility] mg/dL [facility] Comment: Supplemental ranges: <140 mg/dL before meals <180 mg/dL all other times of the day Specimen Anatomical Collection Method Collection Time Receive d Time (Source) Location / / Volume Laterality Blood specimen 08/14/2017 8:07 AM 018 8:07 (specimen) EST AM EST Yonathan Smith MD POINT OF CARE TEST ORDERABLE S Performing Organization Address City/State/ZIP Code Phon e Number [address] (ABNORMAL) Differential, Automated (08/14/2017 4:52 AM EST) Patholo gist Method Time Signature Neutrophils % 78.6 % [facility] Neutr Abs (ANC) 7.70 (H) 1.70 - [facility] 6.10 [facility] x10(3)/[facility] LABORATORY Lymphocytes % 7.8 % [facility] Lymphocytes Abs 0.8 (L) 0.9 - 3.2 [facility] x10(3)/[facility] LABORATORY Monocytes % 8.8 % [facility] Monocyte Abs 0.9 0.3 - 0.9 [facility] x10(3)/[facility] LABORATORY Eosinophils % 4.0 % [facility] Eosinophils Abs 0.4 0.0 - 0.4 [facility] x10(3)/[facility] LABORATORY Basophils % 0.5 % [facility] Basophils Abs 0.0 0.0 - 0.1 [facility] x10(3)/[facility] [...] Gran Abs 0.03 0.00 - 0.04 x10(3)/[facility] LABORATORY Specimen Anatomical Collection Method Collection Time Receive d Time (Source) Location / / Volume Laterality Blood specimen 08/14/2017 4:52 AM 018 5:08 (specimen) EST AM EST Resulting Agency Comment Spec In Lab Yonathan Smith MD HEMATOLOGY ORDERABLES Performing Organization Address City/State/[place] [address] (ABNORMAL) Hemogram (08/14/2017 4:52 AM EST) Analysis Performed At Patho logist Time Signature WBC 9.8 (H) 4.0 - 9.5 [facility] x10(3)/[facility] LABORATORY RBC 3.32 (L) 4.58 - [facility] 5.54 [facility] x10(6)/[facility] LABORATORY Hemoglobin 9.5 (L) 13.7 - [facility] 16[facility]5 gm/dL [facility] Hematocrit 30.3 (L) 40.5 - [facility] 48.5 % [facility] MCV 91.3 82.9 - [facility] 93.1 [facility] LABORATORY MCH 28.6 27.5 - [facility] 32.[address] [facility] MCHC 31.4 (L) 32.0 - [facility] 35.7 gm/dL [facility] Platelets 263 145 - 357 [facility] x10(3)/[facility] LABORATORY RDWSD 54.8 (H) 36.0 - [facility] 45.0 [facility] LABORATORY RDWCV 16.5 (H) 11.4 - [facility] 13.8 % [facility] MPV 9.1 7.6 - 12.9 [facility] LABORATORY nRBC % Auto 0.0 % [facility] nRBC Abs Auto 0.000 0.000 - [facility] 0.000 [facility] x10(3)/[facility] LABORATORY Specimen Anatomical Collection Method Collection Time Receive d Time (Source) Location / / Volume Laterality Blood specimen 08/14/2017 4:52 AM 018 5:08 (specimen) EST AM EST Resulting Agency Comment Spec In Lab Yonathan Smith MD HEMATOLOGY ORDERABLES Performing Organization Address City/[facility]/[place] [address] (ABNORMAL) Prothrombin Time (08/14/2017 [...] Smith MD HEMATOLOGY ORDERABLES Performing Organization Address City/[facility]/[place] [address] (ABNORMAL) Basic Metabolic Panel (non-fasting) (08/14/2017 4:52 AM EST) athologist Signature Glucose Lvl 135 65 - 199 [facility] mg/dL [facility] [...] or in patients with acute kidney failure. [email or web address] [email or web address] Specimen Anatomical Collection Method Collection Time Receive d Time (Source) Location / / Volume Laterality Blood specimen 08/14/2017 4:52 AM 018 5:08 (specimen) EST AM EST Resulting Agency Comment Spec In Lab Yonathan Smith MD CHEMISTRY ORDERABLES Performing Organization Address City/[facility]/ZIP Code Phon e Number [address] POCT Glucose (08/14/2017 3:56 AM EST) P athologist Signature POC Glucose 135 65 - 199 [facility] mg/dL [facility] Comment: Supplemental ranges: <140 mg/dL before meals <180 mg/dL all other times of the day Specimen Anatomical Collection Method Collection Time Receive d Time (Source) Location / / Volume Laterality Blood specimen 08/14/2017 3:56 AM 018 3:56 (specimen) EST AM EST Yonathan Smith MD POINT OF CARE TEST ORDERABLE S Performing Organization Address City/[facility]/[place] [address] POCT Glucose (08/13/2017 11:13 PM EST) athologist Signature POC Glucose 118 65 - 199 [place] mg/dL [facility] Comment: Supplemental ranges: <140 mg/dL before meals <180 mg/dL all other times of the day Specimen Anatomical Collection Method Collection Time Receive d Time (Source) Location / / Volume Laterality Blood specimen 08/13/2017 11:13 8 (specimen) PM EST 11:13 PM EST Yonathan Smith MD POINT OF CARE TEST ORDERABLE S Performing Organization Address City/State/[place] [address] (ABNORMAL) POCT Glucose (08/13/2017 8:08 PM EST) athologist Signature POC Glucose 204 (H) 65 - 199 [facility] Comment: Supplemental ranges: <140 mg/dL before meals <180 mg/dL all other times of the day Specimen Anatomical Collection Method Collection Time Receive d Time (Source) Location / / Volume Laterality Blood specimen 08/13/2017 8:08 PM 018 8:08 (specimen) EST PM EST Yonathan Smith MD POINT OF CARE TEST ORDERABLE S Performing Organization Address City/State/[place] [address] POCT Glucose (08/13/2017 4:02 PM EST) athologist Signature POC Glucose 145 65 - 199 [facility] mg/dL [facility] Comment: Supplemental ranges: <140 mg/dL before meals <180 mg/dL all other times of the day Specimen Anatomical Collection Method Collection Time Receive d Time (Source) Location / / Volume Laterality Blood specimen 08/13/2017 4:02 PM 018 4:02 (specimen) EST PM EST Yonathan Smith MD POINT OF CARE TEST ORDERABLE S Performing Organization Address City/State/[place] [address] POCT Glucose (08/13/2017 11:31 AM EST) athologist Signature POC Glucose 179 65 - 199 [facility] Comment: Supplemental ranges: <140 mg/dL before meals <180 mg/dL all other times of the day Specimen Anatomical Collection Method Collection Time Receive d Time (Source) Location / / Volume Laterality Blood specimen 08/13/2017 11:31 8 (specimen) AM EST 11:31 AM EST Yonathan Smith MD POINT OF CARE TEST ORDERABLE S Performing Organization Address City/[facility]/[place] [address] (ABNORMAL) POCT Glucose (08/13/2017 10:16 AM EST) athologist Signature POC Glucose 211 (H) 65 - 199 [facility]/dL [facility] Comment: Supplemental ranges: <140 mg/dL before meals <180 mg/dL all other times of the day Specimen Anatomical Collection Method Collection Time Receive d Time (Source) Location / / Volume Laterality Blood specimen 08/13/2017 10:16 8 (specimen) AM EST 10:16 AM EST Yonathan Smith MD POINT OF CARE TEST ORDERABLE S Performing Organization Address City/[facility]/[place] [address] JULIAN, legs, multiple levels (08/13/2017 7:42 AM EST) Component Value Ref Test Analysis [facility] Method Time Signature VB Text Department: Vascular Surgery Lab VASCUBASE Report Patient: [id number] (GREGORY HOANG) CPT: 07789 ICD10: I99.8 Referring Physician: YONATHAN SMITH ?? Indications: s/p R 1,2,3 toe amps with red left foot, need n ew baseline Diabetes mellitus: yes ICD10 Diagnosis Code: I99.8 Findings: Right ?Pressure (mm Hg) ?? JULIAN ??Waveform ?TBI ?? Brachial Artery ?138 ? Dorsalis Pedis (Ankle) Arter y ?132 ? 0.94 ??[place]- Biphasic ? Posterior Tibial (Ankle) Art anila ??154 ? 1.10 ??[place]-Biphasic ? Fourth Toe ? 67 ? 0.48 [...] Signature POC Glucose 156 65 - 199 [facility] mg/dL [facility] Comment: Supplemental ranges: [...] City/State/[place] [address] (ABNORMAL) Differential, Automated (08/13/2017 5:33 AM EST) Patholo gist Method Time Signature Neutrophils % 77.8 % [facility] Neutr Abs (ANC) 7.83 (H) 1.70 - [facility] 6.10 [facility] x10(3)/[facility] LABORATORY Lymphocytes % 8.4 % [facility] Lymphocytes Abs 0.8 (L) 0.9 - 3.2 [facility] x10(3)/[facility] LABORATORY Monocytes % 8.3 % [facility] Monocyte Abs 0.8 0.3 - 0.9 [facility] x10(3)/[facility] LABORATORY Eosinophils % 4.6 % [facility] Eosinophils Abs 0.5 (H) 0.0 - 0.4 [facility] x10(3)/[facility] LABORATORY Basophils % 0.5 % [facility]ORY Basophils Abs 0.0 0.0 - 0.1 [facility] x10(3)/[facility] [...] Gran Abs 0.04 0.00 - 0.04 x10(3)/[facility] Specimen Anatomical Collection Method Collection Time Receive d Time (Source) Location / / Volume Laterality Blood specimen 08/13/2017 5:33 AM 018 6:04 (specimen) EST AM EST Resulting Agency Comment Spec In Lab Yonathan Smith MD HEMATOLOGY ORDERABLES Performing Organization Address City/State/ZIP Code Phon e Number [place] [id number] (ABNORMAL) Hemogram (08/13/2017 5:33 AM EST) Analysis Performed At Patho logist Time Signature WBC 10.1 (H) 4.0 - 9.5 [facility] x10(3)/[facility] LABORATORY RBC 3.21 (L) 4.58 - [facility] 5.54 [facility] x10(6)/[facility] LABORATORY Hemoglobin 9.2 (L) 13.7 - [facility] 16.5 gm/dL [facility] Hematocrit 29.6 (L) 40.5 - [facility] 48.5 % [facility] MCV 92.2 82.9 - [facility] 93.1 [facility] LABORATORY MCH 28.7 27.5 - [facility] 32.[address] [facility] MCHC 31.1 (L) 32.0 - [facility]7 gm/dL [facility] Platelets 263 145 - 357 [facility] x10(3)/[facility] LABORATORY RDWSD 54.8 (H) 36.0 - [facility] 45.0 [facility] LABORATORY RDWCV 16.4 (H) 11.4 - [facility] 13.8 % [facility] LABORATORY MPV 9.2 7.6 - 12.9 [facility] LABORATORY nRBC % Auto 0.0 % [facility] LABORATORY nRBC Abs Auto 0.000 0.000 - [facility] 0.000 [facility] x10(3)/[facility] LABORATORY Specimen Anatomical Collection Method Collection Time Receive d Time (Source) Location / / Volume Laterality Blood specimen 08/13/2017 5:33 AM 018 6:04 (specimen) EST AM EST Resulting Agency Comment Spec In Lab Yonathan Smith MD HEMATOLOGY ORDERABLES Performing Organization Address City/State/[place] [address] (ABNORMAL) Prothrombin Time (08/13/2017 [...] City/State/[place] [address] (ABNORMAL) Basic Metabolic Panel (non-fasting) (08/13/2017 5:33 AM EST) P athologist Signature Glucose Lvl 126 65 - 199 [facility] mg/dL [facility] [...] or in patients with acute kidney failure. [email or web address] Specimen Anatomical Collection Method Collection Time Receive d Time (Source) Location / / Volume Laterality Blood specimen 08/13/2017 5:33 AM 018 6:04 (specimen) EST AM EST Resulting Agency Comment Spec In Lab Yonathan Smith MD CHEMISTRY ORDERABLES Performing Organization Address City/State/ZIP Code Phon e Number [address] POCT Glucose (08/13/2017 4:29 AM EST) athologist Signature POC Glucose 111 65 - 199 [facility] mg/dL [facility] Comment: Supplemental ranges: <140 mg/dL before meals <180 mg/dL all other times of the day Specimen Anatomical Collection Method Collection Time Receive d Time (Source) Location / / Volume Laterality Blood specimen 08/13/2017 4:29 AM 018 4:29 (specimen) EST AM EST Yonathan Smith MD POINT OF CARE TEST ORDERABLE S Performing Organization Address City/[facility]/[place] [address] POCT Glucose (08/12/2017 11:28 PM EST) athologist Signature POC Glucose 164 65 - 199 [facility] mg/dL [facility] Comment: Supplemental ranges: <140 mg/dL before meals <180 mg/dL all other times of the day Specimen Anatomical Collection Method Collection Time Receive d Time (Source) Location / / Volume Laterality Blood specimen 08/12/2017 11:28 8 (specimen) PM EST 11:28 PM EST Yonathan Smith MD POINT OF CARE TEST ORDERABLE S Performing Organization Address City/[facility]/ZIP Code Phon e Number [address] (ABNORMAL) POCT Glucose (08/12/2017 7:40 PM EST) athologist Signature POC Glucose 209 (H) 65 - 199 [facility] mg/dL [facility] Comment: Supplemental ranges: <140 mg/dL before meals <180 mg/dL all other times of the day Specimen Anatomical Collection Method Collection Time Receive d Time (Source) Location / / Volume Laterality Blood specimen 08/12/2017 7:40 PM 018 7:40 (specimen) EST PM EST Yonathan Smith MD POINT OF CARE TEST ORDERABLE S Performing Organization Address City/State/ZIP Code Phon e Number [address] POCT Glucose (08/12/2017 4:24 PM EST) athologist Signature POC Glucose 161 65 - 199 [facility] mg/dL [facility] Comment: Supplemental ranges: <140 mg/dL before meals <180 mg/dL all other times of the day Specimen Anatomical Collection Method Collection Time Receive d Time (Source) Location / / Volume Laterality Blood specimen 08/12/2017 4:24 PM 018 4:24 (specimen) EST PM EST Yonathan Smith MD POINT OF CARE TEST ORDERABLE S Performing Organization Address City/State/ZIP Code Phon e Number [address] POCT Glucose (08/12/2017 12:00 PM EST) athologist Signature POC Glucose 167 65 - 199 [facility] mg/dL [facility] Comment: Supplemental ranges: <140 mg/dL before meals <180 mg/dL all other times of the day Specimen Anatomical Collection Method Collection Time Receive d Time (Source) Location / / Volume Laterality Blood specimen 08/12/2017 12:00 8 (specimen) PM EST 12:00 PM EST Yonathan Smith MD POINT OF CARE TEST ORDERABLE S Performing Organization Address City/State/ZIP Code Phon e Number [address] POCT Glucose (08/12/2017 7:25 AM EST) athologist Signature POC Glucose 152 65 - 199 [place] mg/dL [facility] LABORATORY Comment: Supplemental ranges: [...] City/State/[place] [address] (ABNORMAL) Differential, Automated (08/12/2017 6:29 AM EST) [facility] Method Time Signature Neutrophils % 78.7 % [facility] LABORATORY Neutr Abs (ANC) 7.94 (H) 1.70 - [facility] 6.10 [facility] x10(3)/[facility] LABORATORY Lymphocytes % 8.8 % [facility] LABORATORY Lymphocytes Abs 0.9 0.9 - 3.2 [facility] x10(3)/[facility] LABORATORY Monocytes % 7.8 % [facility] LABORATORY Monocyte Abs 0.8 0.3 - 0.9 [facility] x10(3)/[facility] LABORATORY Eosinophils % 3.9 % [facility] LABORATORY Eosinophils Abs 0.4 0.0 - 0.4 [facility] x10(3)/[facility] LABORATORY Basophils % 0.3 % [facility] LABORATORY Basophils Abs 0.0 0.0 - 0.1 [facility] x10(3)/[facility] [...] (H) 0.00 - 0.04 x10(3)/[facility] LABORATORY Specimen Anatomical Collection Method Collection Time Receive d Time (Source) Location / / Volume Laterality Blood specimen 08/12/2017 6:29 AM 018 6:38 (specimen) EST AM EST Resulting Agency Comment Spec In Lab Yonathan Smith MD HEMATOLOGY ORDERABLES Performing Organization Address City/State/ZIP Code Phon e Number [address] (ABNORMAL) Hemogram (08/12/2017 6:29 AM EST) Analysis Performed At Patho logist Time Signature WBC 10.1 (H) 4.0 - 9.5 [facility] x[facility](3[facility] LABORATORY RBC 3.02 (L) 4.58 - [place] R[place] 5.54 [facility] x10(6)/[facility] LABORATORY Hemoglobin 8.7 (L) 13.7 - [facility] 16.[facility] gm/dL [facility] LABORATORY Hematocrit 28.1 (L) 40.5 - [facility] 48.5 % [facility] LABORATORY MCV 93.0 82.9 - [facility] 93.1 [facility] LABORATORY MCH 28.8 27.5 - [place] [facility] 32.[address] [facility] LABORATORY MCHC 31.0 (L) 32.0 - [place] R[facility] 35.7 gm/dL [facility] LABORATORY Platelets 223 145 - 357 [facility] x10(3)/[facility] LABORATORY RDWSD 56.1 (H) 36.0 - [place] [facility] 45.0 [facility] LABORATORY RDWCV 16.4 (H) 11.4 - [facility] RYAN 13.8 % [facility] LABORATORY MPV 9.0 7.6 - 12.9 [facility] LABORATORY nRBC % Auto 0.0 % [facility] LABORATORY nRBC Abs Auto 0.000 0.000 - [place] R[place] 0.000 [facility] x10(3)/[facility] LABORATORY Specimen Anatomical Collection Method Collection Time Receive d Time (Source) Location / / Volume Laterality Blood specimen 08/12/2017 6:29 AM 018 6:38 (specimen) EST AM EST Resulting Agency Comment Spec In Lab Yonathan Smith MD HEMATOLOGY ORDERABLES Performing Organization Address City/State/[place] [address] (ABNORMAL) Prothrombin Time (08/12/2017 [...] Address City/State/[place] [address] (ABNORMAL) Basic Metabolic Panel (non-fasting) (08/12/2017 6:29 AM EST) athologist Signature Glucose Lvl 151 65 - 199 [facility] mg/dL [facility] [...] in patients with acute kidney failure. [email or web address] [email or web address] Specimen Anatomical Collection Method Collection Time Receive d Time (Source) Location / / Volume Laterality Blood specimen 08/12/2017 6:29 AM 018 6:38 (specimen) EST AM EST Resulting Agency Comment Spec In Lab Yonathan Smith MD CHEMISTRY ORDERABLES Performing Organization Address City/[facility]/ZIP Code Phon e Number [address] POCT Glucose (08/12/2017 4:08 AM EST) athologist Signature POC Glucose 181 65 - 199 [facility] mg/dL [facility] LABORATORY Comment: Supplemental ranges: <140 mg/dL before meals <180 mg/dL all other times of the day Specimen Anatomical Collection Method Collection Time Receive d Time (Source) Location / / Volume Laterality Blood specimen 08/12/2017 4:08 AM 018 4:08 (specimen) EST AM EST Yonathan Smith MD POINT OF CARE TEST ORDERABLE S Performing Organization Address City/State/[place] [address] (ABNORMAL) POCT Glucose (08/12/2017 12:17 AM EST) P athologist Signature POC Glucose 221 (H) 65 - 199 [facility] LABORATORY Comment: Supplemental ranges: <140 mg/dL before meals <180 mg/dL all other times of the day Specimen Anatomical Collection Method Collection Time Receive d Time (Source) Location / / Volume Laterality Blood specimen 08/12/2017 12:17 8 (specimen) AM EST 12:17 AM EST Yonathan Smith MD POINT OF CARE TEST ORDERABLE S Performing Organization Address City/[facility]/ZIP Code Phon e Number [address] (ABNORMAL) POCT Glucose (08/11/2017 8:52 PM EST) athologist Signature POC Glucose 221 (H) 65 - 199 [place] ZHAORY[place] mg/dL [facility] LABORATORY Comment: Supplemental ranges: <140 mg/dL before meals <180 mg/dL all other times of the day Specimen Anatomical Collection Method Collection Time Receive d Time (Source) Location / / Volume Laterality Blood specimen 08/11/2017 8:52 PM 018 8:52 (specimen) EST PM EST Yonathan Smith MD POINT OF CARE TEST ORDERABLE S Performing Organization Address City/[facility]/[place] [address] POCT Glucose (08/11/2017 5:59 PM EST) athologist Signature POC Glucose 169 65 - 199 [place] ZHAORYAN mg/dL [facility] LABORATORY Comment: Supplemental ranges: <140 mg/dL before meals <180 mg/dL all other times of the day Specimen Anatomical Collection Method Collection Time Receive d Time (Source) Location / / Volume Laterality Blood specimen 08/11/2017 5:59 PM 018 5:59 (specimen) EST PM EST Yonathan Smith MD POINT OF CARE TEST ORDERABLE S Performing Organization Address City/[facility]/[place] [address] (ABNORMAL) POCT Glucose (08/11/2017 4:08 PM EST) athologist Signature POC Glucose 240 (H) 65 - 199 [place] mg/dL [facility] LABORATORY Comment: Supplemental ranges: [...] Address City/State/ZIP Code Phon e Number [address] POCT Glucose (08/11/2017 12:04 PM EST) athologist Signature POC Glucose 182 65 - 199 [facility] mg/dL [facility] LABORATORY Comment: Supplemental ranges: <140 mg/dL before meals <180 mg/dL all other times of the day Specimen Anatomical Collection Method Collection Time Receive d Time (Source) Location / / Volume Laterality Blood specimen 08/11/2017 12:04 8 (specimen) PM EST 12:04 PM EST Yonathan Smith MD POINT OF CARE TEST ORDERABLE S Performing Organization Address City/State/ZIP Code Phon e Number [address] POCT Glucose (08/11/2017 7:31 AM EST) athologist Signature POC Glucose 156 65 - 199 [facility] mg/dL [facility] LABORATORY Comment: Supplemental ranges: <140 mg/dL before meals <180 mg/dL all other times of the day Specimen Anatomical Collection Method Collection Time Receive d Time (Source) Location / / Volume Laterality Blood specimen 08/11/2017 7:31 AM 018 7:31 (specimen) EST AM EST Yonathan Smith MD POINT OF CARE TEST ORDERABLE S Performing Organization Address City/State/ZIP Code Phon e Number [address] (ABNORMAL) Differential, Automated (08/11/2017 6:16 AM EST) [facility] gist Method Time Signature Neutrophils % 83.7 % [facility] LABORATORY Neutr Abs (ANC) 10.76 (H) 1.70 - [facility] 6.10 [facility] x10(3)/[facility] LABORATORY Lymphocytes % 6.0 % [facility] LABORATORY Lymphocytes Abs 0.8 (L) 0.9 - 3.2 [facility] x10(3)/[facility] LABORATORY Monocytes % 7.5 % [facility] LABORATORY Monocyte Abs 1.0 (H) 0.3 - 0.9 [facility] x10(3)/[facility] LABORATORY Eosinophils % 2.0 % [facility] LABORATORY Eosinophils Abs 0.3 0.0 - 0.4 [facility] x10(3)/[facility] LABORATORY Basophils % 0.3 % [facility] LABORATORY Basophils Abs 0.0 0.0 - 0.1 [facility] x10(3)/[facility] [...] (H) 0.00 - 0.04 x10(3)/[facility] LABORATORY Specimen Anatomical Collection Method Collection Time Receive d Time (Source) Location / / Volume Laterality Blood specimen 08/11/2017 6:16 AM 018 6:24 (specimen) EST AM EST Resulting Agency Comment Spec In Lab Yonathan Smith MD HEMATOLOGY ORDERABLES Performing Organization Address City/State/[place] [address] (ABNORMAL) Hemogram (08/11/2017 6:16 AM EST) Analysis Performed At Patho logist Time Signature WBC 12.9 (H) 4.0 - 9.5 [facility] x10(3)/[facility] LABORATORY RBC 3.28 (L) 4.58 - [facility] 5.54 [facility] x10(6)/[facility] LABORATORY Hemoglobin 9.5 (L) 13.7 - [facility] 16.5 gm/dL [facility] LABORATORY Hematocrit 29.8 (L) 40.5 - [facility] 48.5 % [facility] LABORATORY MCV 90.9 82.9 - [facility] 93.1 [facility] LABORATORY MCH 29.0 27.5 - [place] [facility] 32.[address] [facility] LABORATORY MCHC 31.9 (L) 32.0 - [facility] 35.7 gm/dL [facility] LABORATORY Platelets 236 145 - 357 [facility] x10(3)/[facility] LABORATORY RDWSD 53.5 (H) 36.0 - [facility] 45.0 [facility] LABORATORY RDWCV 16.3 (H) 11.4 - [facility] RYAN 13.8 % [facility] LABORATORY MPV 8.8 7.6 - 12.9 [facility] LABORATORY nRBC % Auto 0.0 % [facility] LABORATORY nRBC Abs Auto 0.000 0.000 - [facility] RYAN 0.000 [facility] x10(3)/[facility] LABORATORY Specimen Anatomical Collection Method Collection Time Receive d Time (Source) Location / / Volume Laterality Blood specimen 08/11/2017 6:16 AM 018 6:24 (specimen) EST AM EST Resulting Agency Comment Spec In Lab Yonathan Smith MD HEMATOLOGY ORDERABLES Performing Organization Address City/State/[place] [address] (ABNORMAL) Prothrombin Time (08/11/2017 [...] Smith MD HEMATOLOGY ORDERABLES Performing Organization Address City/[facility]/[place] [address] Basic Metabolic Panel (non-fasting) (08/11/2017 6:16 AM EST) athologist Signature Glucose Lvl 139 65 - 199 [facility] mg/dL [facility] [...] or in patients with acute kidney failure. [email or web address] [email or web address] Specimen Anatomical Collection Method Collection Time Receive d Time (Source) Location / / Volume Laterality Blood specimen 08/11/2017 6:16 AM 018 6:24 (specimen) EST AM EST Resulting Agency Comment Spec In Lab Yonathan Smith MD CHEMISTRY ORDERABLES Performing Organization Address City/[facility]/ZIP Code Phon e Number [address] POCT Glucose (08/11/2017 4:07 AM EST) athologist Signature POC Glucose 162 65 - 199 [facility] mg/dL [facility] LABORATORY Comment: Supplemental ranges: <140 mg/dL before meals <180 mg/dL all other times of the day Specimen Anatomical Collection Method Collection Time Receive d Time (Source) Location / / Volume Laterality Blood specimen 08/11/2017 4:07 AM 018 4:07 (specimen) EST AM EST Yonathan Smith MD POINT OF CARE TEST ORDERABLE S Performing Organization Address City/State/ZIP Code Phon e Number [address] POCT Glucose (08/10/2017 11:59 PM EST) athologist Signature POC Glucose 166 65 - 199 [place] [facility] mg/dL [facility] LABORATORY Comment: Supplemental ranges: <140 mg/dL before meals <180 mg/dL all other times of the day Specimen Anatomical Collection Method Collection Time Receive d Time (Source) Location / / Volume Laterality Blood specimen 08/10/2017 11:59 8 (specimen) PM EST 11:59 PM EST Yonathan Smith MD POINT OF CARE TEST ORDERABLE S Performing Organization Address City/State/[place] [address] POCT Glucose (08/10/2017 8:12 PM EST) athologist Signature POC Glucose 156 65 - 199 [facility] RYAN mg/dL [facility] LABORATORY Comment: Supplemental ranges: <140 mg/dL before meals <180 mg/dL all other times of the day Specimen Anatomical Collection Method Collection Time Receive d Time (Source) Location / / Volume Laterality Blood specimen 08/10/2017 8:12 PM 018 8:12 (specimen) EST PM EST Yonathan Smith MD POINT OF CARE TEST ORDERABLE S Performing Organization Address City/State/[place] [address] (ABNORMAL) POCT Glucose (08/10/2017 4:42 PM EST) P athologist Signature POC Glucose 211 (H) 65 - 199 [facility] mg/dL [facility] LABORATORY Comment: Supplemental ranges: <140 mg/dL before meals <180 mg/dL all other times of the day Specimen Anatomical Collection Method Collection Time Receive d Time (Source) Location / / Volume Laterality Blood specimen 08/10/2017 4:42 PM 018 4:42 (specimen) EST PM EST Yonathan Smith MD POINT OF CARE TEST ORDERABLE S Performing Organization Address City/State/ZIP Code Phon e Number [place] [id number] HOSPITAL LAB[address]ORY Drive (ABNORMAL) Differential, Automated (08/10/2017 2:30 PM EST) Patholo gist Method Time Signature Neutrophils % 87.6 % [facility] LABORATORY Neutr Abs (ANC) 9.90 (H) 1.70 - [facility] 6.10 [facility] x10(3)/[facility] L LABORATORY Lymphocytes % 4.3 % [facility] LABORATORY Lymphocytes Abs 0.5 (L) 0.9 - 3.2 [facility] x10(3)/[facility] LABORATORY Monocytes % 6.0 % [facility] LABORATORY Monocyte Abs 0.7 0.3 - 0.9 [facility] x10(3)/[facility] LABORATORY Eosinophils % 1.1 % [facility] LABORATORY Eosinophils Abs 0.1 0.0 - 0.4 [facility] x10(3)/[facility] LABORATORY Basophils % 0.4 % [facility] LABORATORY Basophils Abs 0.0 0.0 - 0.1 [facility] x10(3)/[facility] [...] Gran Abs 0.07 (H) 0.00 - 0.04 x10(3)/[facility] LABORATORY Specimen Anatomical Collection Method Collection Time Receive d Time (Source) Location / / Volume Laterality Blood specimen 08/10/2017 2:30 PM 018 2:48 (specimen) EST PM EST Resulting Agency Comment Spec In Lab Yonathan Smith MD HEMATOLOGY ORDERABLES Performing Organization Address City/State/[place] [address] (ABNORMAL) Hemogram (08/10/2017 2:30 PM EST) Analysis Performed At Patho logist Time Signature WBC 11.3 (H) 4.0 - 9.5 [facility] x10(3)/[facility] LABORATORY RBC 3.13 (L) 4.58 - [facility] 5.54 [facility] x10(6)/[facility] LABORATORY Hemoglobin 8.9 (L) 13.7 - [facility] 16.5 gm/dL [facility] LABORATORY Hematocrit 28.4 (L) 40.5 - [facility] 48.5 % [facility] LABORATORY MCV 90.7 82.9 - [facility] 93.1 [facility] LABORATORY MCH 28.4 27.5 - [facility] 32.[address] [facility] LABORATORY MCHC 31.3 (L) 32.0 - [facility] 35.7 gm/dL [facility] LABORATORY Platelets 213 145 - 357 [facility] x10(3)/[facility] LABORATORY RDWSD 53.7 (H) 36.0 - [facility] RYAN 45.0 [facility] LABORATORY RDWCV 16.4 (H) 11.4 - [facility] RYAN 13.8 % [facility] LABORATORY MPV 8.9 7.6 - 12.9 [facility] LABORATORY nRBC % Auto 0.0 % [facility] LABORATORY nRBC Abs Auto 0.000 0.000 - [facility] RYAN 0.000 [facility] x10(3)/[facility] LABORATORY Specimen Anatomical Collection Method Collection Time Receive d Time (Source) Location / / Volume Laterality Blood specimen 08/10/2017 2:30 PM 018 2:48 (specimen) EST PM EST Resulting Agency Comment Spec In Lab Yonathan Smith MD HEMATOLOGY ORDERABLES Performing Organization Address City/State/ZIP Code Phon e Number [address] (ABNORMAL) POCT Glucose (08/10/2017 1:50 PM EST) athologist Signature POC Glucose 243 (H) 65 - 199 [facility] mg/dL [facility] LABORATORY Comment: Supplemental ranges: <140 mg/dL before meals <180 mg/dL all other times of the day Specimen Anatomical Collection Method Collection Time Receive d Time (Source) Location / / Volume Laterality Blood specimen 08/10/2017 1:50 PM 018 1:50 (specimen) EST PM EST Yonathan Smith MD POINT OF CARE TEST ORDERABLE S Performing Organization Address City/[facility]/ZIP Code Phon e Number [address] POCT Glucose (08/10/2017 11:21 AM EST) athologist Signature POC Glucose 156 65 - 199 [facility] mg/dL [facility] LABORATORY Comment: Supplemental ranges: <140 mg/dL before meals <180 mg/dL all other times of the day Specimen Anatomical Collection Method Collection Time Receive d Time (Source) Location / / Volume Laterality Blood specimen 08/10/2017 11:21 8 (specimen) AM EST 11:21 AM EST Yonathan Smith MD POINT OF CARE TEST ORDERABLE S Performing Organization Address City/[facility]/[place] [address] (ABNORMAL) Differential, Automated (08/10/2017 10:28 AM EST) [facility] Time Signature Neutrophils % 85.3 % [facility] LABORATORY Neutr Abs (ANC) 9.43 (H) 1.70 - [facility] 6.10 [facility] x10(3)/[facility] L LABORATORY Lymphocytes % 5.5 % [facility] LABORATORY Lymphocytes Abs 0.6 (L) 0.9 - 3.2 [facility] x10(3)/[facility] LABORATORY Monocytes % 5.9 % [facility] LABORATORY Monocyte Abs 0.6 0.3 - 0.9 [facility] x10(3)/[facility] LABORATORY Eosinophils % 2.1 % [facility] LABORATORY Eosinophils Abs 0.2 0.0 - 0.4 [facility] x10(3)/[facility] LABORATORY Basophils % 0.4 % [facility] LABORATORY Basophils Abs 0.0 0.0 - 0.1 [facility] x10(3)/[facility] [...] (H) 0.00 - 0.04 x10(3)/[facility] LABORATORY Specimen Anatomical Collection Method Collection Time Receive d Time (Source) Location / / Volume Laterality Blood specimen 08/10/2017 10:28 8 (specimen) AM EST 10:35 AM EST Resulting Agency Comment Spec In Lab Yonathan Smith MD HEMATOLOGY ORDERABLES Performing Organization Address City/State/[place] [address] (ABNORMAL) Hemogram (08/10/2017 10:28 AM EST) Analysis Performed At Patho logist Time Signature WBC 11.0 (H) 4.0 - 9.5 [facility] x10(3)/[facility] LABORATORY RBC 3.02 (L) 4.58 - [facility] 5.54 [facility] x10(6)/[facility] LABORATORY Hemoglobin 8.8 (L) 13.7 - [facility]m/dL [facility] LABORATORY Hematocrit 28.1 (L) 40.5 - [facility] 48.5 % [facility] LABORATORY MCV 93.0 82.9 - [facility] 93.1 [facility] MCH 29.1 27.5 - [facility] 32.[address] [facility] MCHC 31.3 (L) 32.0 - [facility] 35.7 gm/dL [facility] Platelets 207 145 - 357 [facility] x10(3)/[facility] LABORATORY RDWSD 55.3 (H) 36.0 - [facility] RY[facility] 45.0 [facility] RDWCV 16.4 (H) 11.4 - [facility] RYAN 13.8 % [facility] MPV 9.0 7.6 - 12.9 [facility] LABORATORY nRBC % Auto 0.0 % [facility] nRBC Abs Auto 0.000 0.000 - [facility] RYAN 0.000 [facility] x10(3)/[facility] LABORATORY Specimen Anatomical Collection Method Collection Time Receive d Time (Source) Location / / Volume Laterality Blood specimen 08/10/2017 10:28 8 (specimen) AM EST 10:35 AM EST Resulting Agency Comment Spec In Lab Yonathan Smith MD HEMATOLOGY ORDERABLES Performing Organization Address City/State/[place] [address] VS Angiogram/intervention (vascular) (08/10/2017 [...] 2.5x80 5. Completion RLE angiogram 6. L PRINTING PRESS MACHINE OPERATOR angiogram 7. 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 L PRINTING PRESS MACHINE OPERATOR access in the distal L PRINTING PRESS MACHINE OPERATOR. - Closure device: Mynx Technical [...] for a 45cm 5F Destination. V18 and [place] a nd QuickCross catheters were used to [...] bifurcation. Access appeared in the distal R PRINTING PRESS MACHINE OPERATOR. Closure and sheath removal was [...] 2.5x80 5. Completion RLE angiogram 6. L PRINTING PRESS MACHINE OPERATOR angiogram 7. 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 L PRINTING PRESS MACHINE OPERATOR access in the distal L PRINTING PRESS MACHINE OPERATOR. - Closure device: Mynx Technical [...] for a 45cm 5F Destination. V18 and [place] a nd QuickCross catheters were used to [...] bifurcation. Access appeared in the distal R PRINTING PRESS MACHINE OPERATOR. Closure and sheath removal was [...] hours Hold heparin drip Bedrest Continue antibiotics Yonathna Smith MD IMG IR ORDERABLES (ABNORMAL) Differential, Automated (08/10/2017 5:50 AM EST) [facility] gist Method Time Signature Neutrophils % 80.1 % [facility] LABORATORY Neutr Abs (ANC) 9.01 (H) 1.70 - [facility] 6.10 [facility] x10(3)/[facility] LABORATORY Lymphocytes % 8.8 % [facility] LABORATORY Lymphocytes Abs 1.0 0.9 - 3.2 [facility] x10(3)/[facility] LABORATORY Monocytes % 8.3 % [facility] LABORATORY Monocyte Abs 0.9 0.3 - 0.9 [facility] x10(3)/[facility] LABORATORY Eosinophils % 2.0 % [facility] LABORATORY Eosinophils Abs 0.2 0.0 - 0.4 [facility] x10(3)/[facility] LABORATORY Basophils % 0.4 % [facility] LABORATORY Basophils Abs 0.0 0.0 - 0.1 [facility] x10(3)/[facility] [...] (H) 0.00 - 0.04 x10(3)/[facility] LABORATORY Specimen Anatomical Collection Method Collection Time Receive d Time (Source) Location / / Volume Laterality Blood specimen 08/10/2017 5:50 AM 018 5:59 (specimen) EST AM EST Resulting Agency Comment Spec In Lab Yonathan Smith MD HEMATOLOGY ORDERABLES Performing Organization Address City/State/[place] [address] (ABNORMAL) Hemogram (08/10/2017 5:50 AM EST) Analysis Performed At Patho logist Time Signature WBC 11.3 (H) 4.0 - 9.5 [facility] x[facility](3[facility] LABORATORY RBC 3.15 (L) 4.58 - [facility] 5.54 [facility] x10(6)/[facility] LABORATORY Hemoglobin 8.9 (L) 13.7 - [facility]5 [facility]/dL [facility] LABORATORY Hematocrit 29.0 (L) 40.5 - [facility] 48.5 % [facility] LABORATORY MCV 92.1 82.9 - [facility] 93.1 [facility] LABORATORY MCH 28.3 27.5 - [facility] 32.[address] [facility] LABORATORY MCHC 30.7 (L) 32.0 - [facility] 35.7 gm/dL [facility] LABORATORY Platelets 231 145 - 357 [facility] x10(3)/[facility] LABORATORY RDWSD 53.9 (H) 36.0 - [facility] 45.0 [facility] LABORATORY RDWCV 16.2 (H) 11.4 - [facility] 13.8 % [facility] LABORATORY MPV 8.7 7.6 - 12.9 [facility] LABORATORY nRBC % Auto 0.0 % [facility] LABORATORY nRBC Abs Auto 0.000 0.000 - [facility] 0.000 [facility] x10(3)/[facility] LABORATORY Specimen Anatomical Collection Method Collection Time Receive d Time (Source) Location / / Volume Laterality Blood specimen 08/10/2017 5:50 AM 018 5:59 (specimen) EST AM EST Resulting Agency Comment Spec In Lab Yonathan Smith MD HEMATOLOGY ORDERABLES Performing Organization Address City/State/[place] [address] (ABNORMAL) Basic Metabolic Panel (non-fasting) (08/10/2017 5:50 AM EST) athologist Signature Glucose Lvl 135 65 - 199 [facility] mg/dL [facility] [...] in patients with acute kidney failure. [email or web address] http://[email or web address] Specimen Anatomical Collection Method Collection Time Receive d Time (Source) Location / / Volume Laterality Blood specimen 08/10/2017 5:50 AM 018 5:59 (specimen) EST AM EST Resulting Agency Comment Spec In Lab Yonathan Smith MD CHEMISTRY ORDERABLES Performing Organization Address City/[facility]/[place] [address] (ABNORMAL) Prothrombin Time (08/10/2017 [...] Smith MD HEMATOLOGY ORDERABLES Performing Organization Address City/[facility]/[place] [address] (ABNORMAL) POCT Glucose (08/10/2017 4:01 AM EST) athologist Signature POC Glucose 206 (H) 65 - 199 [facility] mg/dL [facility] LABORATORY Comment: Supplemental ranges: <140 mg/dL before meals <180 mg/dL all other times of the day Specimen Anatomical Collection Method Collection Time Receive d Time (Source) Location / / Volume Laterality Blood specimen 08/10/2017 4:01 AM 018 4:01 (specimen) EST AM EST Yonathan Smith MD POINT OF CARE TEST ORDERABLE S Performing Organization Address City/[facility]/ZIP [place] [address] POCT Glucose (08/10/2017 2:01 AM EST) athologist Signature POC Glucose 188 65 - 199 [place] [facility] mg/dL [facility] LABORATORY Comment: Supplemental ranges: <140 mg/dL before meals <180 mg/dL all other times of the day Specimen Anatomical Collection Method Collection Time Receive d Time (Source) Location / / Volume Laterality Blood specimen 08/10/2017 2:01 AM 018 2:01 (specimen) EST AM EST Yonathan Smith MD POINT OF CARE TEST ORDERABLE S Performing Organization Address City/State/[place] [address] (ABNORMAL) POCT Glucose (08/09/2017 11:42 PM EST) athologist Signature POC Glucose 283 (H) 65 - 199 [facility] LABORATORY Comment: Supplemental ranges: <140 mg/dL before meals <180 mg/dL all other times of the day Specimen Anatomical Collection Method Collection Time Receive d Time (Source) Location / / Volume Laterality Blood specimen 08/09/2017 11:42 8 (specimen) PM EST 11:42 PM EST Yonathan Smith MD POINT OF CARE TEST ORDERABLE S Performing Organization Address City/State/[place] [address] POCT Glucose (08/09/2017 8:55 PM EST) athologist Signature POC Glucose 182 65 - 199 [facility] mg/dL [facility] LABORATORY Comment: Supplemental ranges: <140 mg/dL before meals <180 mg/dL all other times of the day Specimen Anatomical Collection Method Collection Time Receive d Time (Source) Location / / Volume Laterality Blood specimen 08/09/2017 8:55 PM 018 8:55 (specimen) EST PM EST Yonathan Smith MD POINT OF CARE TEST ORDERABLE S Performing Organization Address City/State/[place] [address] (ABNORMAL) APTT (08/09/2017 6:42 PM EST) athologist Signature PTT 90 (H) 25 - 35 sec [facility] LABORATORY Comment: The recommended therapeutic range for fu ll dose, unfractionated heparin at [facility] is 80 ? 114 seconds. [...] Smith MD HEMATOLOGY ORDERABLES Performing Organization Address City/[facility]/ZIP [facility] Phon e Number [address] POCT Glucose (08/09/2017 4:41 PM EST) athologist Signature POC Glucose 195 65 - 199 [facility] mg[facility] LABORATORY Comment: Supplemental ranges: <140 mg/dL before meals <180 mg/dL all other times of the day Specimen Anatomical Collection Method Collection Time Receive d Time (Source) Location / / Volume Laterality Blood specimen 08/09/2017 4:41 PM 018 4:41 (specimen) EST PM EST Yonathan Smith MD POINT OF CARE TEST ORDERABLE S Performing Organization Address City/[facility]/[place] [address] POCT Glucose (08/09/2017 12:29 PM EST) athologist Signature POC Glucose 140 65 - 199 [facility]/dL [facility] LABORATORY Comment: Supplemental ranges: <140 mg/dL before meals <180 mg/dL all other times of the day Specimen Anatomical Collection Method Collection Time Receive d Time (Source) Location / / Volume Laterality Blood specimen 08/09/2017 12:29 8 (specimen) PM EST 12:29 PM EST Yonathan Smith MD POINT OF CARE TEST ORDERABLE S Performing Organization Address City/State/[place] [address] POCT Glucose (08/09/2017 9:59 AM EST) P athologist Signature POC Glucose 135 65 - 199 [facility] mg/dL [facility] LABORATORY Comment: Supplemental ranges: <140 mg/dL before meals <180 mg/dL all other times of the day Specimen Anatomical Collection Method Collection Time Receive d Time (Source) Location / / Volume Laterality Blood specimen 08/09/2017 9:59 AM 018 9:59 (specimen) EST AM EST Yonathan Smith MD POINT OF CARE TEST ORDERABLE S Performing Organization Address City/[facility]/[place] [address] Specimen to Pathology (08/09/2017 [...] Address City/[facility]/[place] [address] Surgical Pathology Report (08/09/2017 8:40 AM EST) Component Value Ref Test Analysis Performed At Patholo gist Range Method Time Signature Surgical [id number] ? Location: [facility]; [facility]; A [facility] Report The signing [...] Henrique Flower Verified: ??08/13/2017 ?Pathologist Performed at: ??-[facility] Dept. of Pathology, [place], [place] CLINICAL INFORMATION Specimen Submitted: A - [...] City/State/Z[place] [address] Anaerobic Culture (08/09/2017 8:30 AM EST) [facility] gist Method Time Signature Anaerobic No anaerobic [facility] Culture organisms [facility] LABORATORY Specimen Anatomical Collection Method [...] Address City/State/[place] [address] (ABNORMAL) Abscess/Wound Aspirate Culture (08/09/2017 8:30 AM EST) Patholo gist Method Time Signature Abscess/Wound Moderate mixed [place] Aspirate bacterial [place] Culture morphotypes [facility] normal LABORATORY cutaneous leroy (A) Gram Stain Rare White Blood Cells [place] Few Gram Positive Cocci in pairs [place] () [facility] LABORATORY Organism Gram Positive [place] Cocci in pairs [place] () [facility] LABORATORY Specimen [...] - GENERAL ORDER ROBSON Performing Organization Address City/[facility]/ZIP Code Phon e Number [address] POCT Glucose (08/09/2017 4:28 AM EST) P athologist Signature POC Glucose 128 65 - 199 [facility] LABORATORY Comment: Supplemental ranges: <140 mg/dL before meals <180 mg/dL all other times of the day Specimen Anatomical Collection Method Collection Time Receive d Time (Source) Location / / Volume Laterality Blood specimen 08/09/2017 4:28 AM 018 4:28 (specimen) EST AM EST Yonathan Smith MD POINT OF CARE TEST ORDERABLE S Performing Organization Address City/[facility]/[place] [address] ABORH Recheck Status (08/09/2017 1:10 AM EST) [facility] gist Method Time Signature ABORH Type Completed [facility] LABORATORY Specimen Anatomical Collection Method Collection Time Receive d Time (Source) Location / / Volume Laterality Blood specimen 08/09/2017 1:10 AM 018 1:35 (specimen) EST AM EST Resulting Agency Comment Spec In Lab Yonathan Smith MD BLOOD BANK ORDERABLES Performing Organization Address City/[facility]/[place] [address] Antibody screen (08/09/2017 1:10 AM EST) [facility] Method Time Signature Ab Screen Negative [facility] LABORATORY Expires at 08/12/2017 [facility] [id number] on: [facility] LABORATORY Specimen Anatomical Collection Method Collection Time Receive d Time (Source) Location / / Volume Laterality Blood specimen 08/09/2017 1:10 AM 018 1:35 (specimen) EST AM EST Resulting Agency Comment Spec In Lab Yonathan Smith MD BLOOD BANK ORDERABLES Performing Organization Address City/[facility]/[place] [address] ABO/Rh Typing (08/09/2017 1:10 [...] Address City/[facility]/[place] [address] (ABNORMAL) APTT (08/09/2017 1:10 AM EST) P athologist Signature PTT 86 (H) 25 - 35 sec [facility] LABORATORY Comment: The recommended therapeutic range for fu ll dose, unfractionated heparin at [facility] is 80 ? 114 seconds. [...] City/State/[place] [address] (ABNORMAL) Differential, Automated (08/09/2017 1:10 AM EST) [facility] gist Method Time Signature Neutrophils % 76.2 % [facility] LABORATORY Neutr Abs (ANC) 8.59 (H) 1.70 - [facility] 6.10 [facility] x10(3)/[facility] LABORATORY Lymphocytes % 11.0 % [facility] LABORATORY Lymphocytes Abs 1.2 0.9 - 3.2 [facility] x10(3)/[facility] LABORATORY Monocytes % 8.4 % [facility] LABORATORY Monocyte Abs 1.0 (H) 0.3 - 0.9 [facility] x10(3)/[facility] LABORATORY Eosinophils % 3.5 % [facility] LABORATORY Eosinophils Abs 0.4 0.0 - 0.4 [facility] x10(3)/[facility] LABORATORY Basophils % 0.5 % [facility] LABORATORY Basophils Abs 0.1 0.0 - 0.1 [facility] x10(3)/[facility] [...] (H) 0.00 - 0.04 x10(3)/[facility] LABORATORY Specimen Anatomical Collection Method Collection Time Receive d Time (Source) Location / / Volume Laterality Blood specimen 08/09/2017 1:10 AM 018 1:19 (specimen) EST AM EST Resulting Agency Comment Spec In Lab Yonathan Smith MD HEMATOLOGY ORDERABLES Performing Organization Address City/State/[place] [address] (ABNORMAL) Hemogram (08/09/2017 1:10 AM EST) Analysis Performed At Patho logist Time Signature WBC 11.3 (H) 4.0 - 9.5 [facility] x[facility](3)/[facility] LABORATORY RBC 3.47 (L) 4.58 - [facility] 5.54 [facility] x10(6)/[facility] LABORATORY Hemoglobin 10.0 (L) 13.7 - [facility] 16.5 gm/dL [facility] LABORATORY Hematocrit 31.9 (L) 40.5 - [facility] 48.5 % [facility] LABORATORY MCV 91.9 82.9 - [facility] 93.1 [facility] LABORATORY MCH 28.8 27.5 - [facility] 32.[address] [facility] LABORATORY MCHC 31.3 (L) 32.0 - [facility] 35.7 gm/dL [facility] LABORATORY Platelets 234 145 - 357 [facility] x10(3)/[facility] LABORATORY RDWSD 54.0 (H) 36.0 - [facility] 45.0 [facility] LABORATORY RDWCV 16.2 (H) 11.4 - [facility] 13.8 % [facility] LABORATORY MPV 8.7 7.6 - 12.9 [facility] LABORATORY nRBC % Auto 0.0 % [facility] LABORATORY nRBC Abs Auto 0.000 0.000 - [facility] 0.000 [facility] x10(3)/[facility] LABORATORY Specimen Anatomical Collection Method Collection Time Receive d Time (Source) Location / / Volume Laterality Blood specimen 08/09/2017 1:10 AM 018 1:19 (specimen) EST AM EST Resulting Agency Comment Spec In Lab Yonathan Smith MD HEMATOLOGY ORDERABLES Performing Organization Address City/State/[place] [address] (ABNORMAL) Prothrombin Time (08/09/2017 [...] Address City/State/ZIP Code Phon e Number [place] [id number]OS[address] (ABNORMAL) Basic Metabolic Panel (non-fasting) (08/09/2017 1:10 AM EST) athologist Signature Glucose Lvl 108 65 - 199 [facility] mg/dL [facility] [...] in patients with acute kidney failure. [email or web address] http://[email or web address] Specimen Anatomical Collection Method Collection Time Receive d Time (Source) Location / / Volume Laterality Blood specimen 08/09/2017 1:10 AM 018 1:19 (specimen) EST AM EST Resulting Agency Comment Spec In Lab Yonathan Smith MD CHEMISTRY ORDERABLES Performing Organization Address City/[facility]/ZIP Code Phon e Number [address] POCT Glucose (08/09/2017 12:05 AM EST) athologist Signature POC Glucose 128 65 - 199 [facility] LABORATORY Comment: Supplemental ranges: <140 mg/dL before meals <180 mg/dL all other times of the day Specimen Anatomical Collection Method Collection Time Receive d Time (Source) Location / / Volume Laterality Blood specimen 08/09/2017 12:05 8 (specimen) AM EST 12:05 AM EST Yonathan Smith MD POINT OF CARE TEST ORDERABLE S Performing Organization Address City/[facility]/[place] [address] (ABNORMAL) POCT Glucose (08/08/2017 7:36 PM EST) athologist Signature POC Glucose 215 (H) 65 - 199 [facility] LABORATORY Comment: Supplemental ranges: <140 mg/dL before meals <180 mg/dL all other times of the day Specimen Anatomical Collection Method Collection Time Receive d Time (Source) Location / / Volume Laterality Blood specimen 08/08/2017 7:36 PM 018 7:36 (specimen) EST PM EST Yonathan Smith MD POINT OF CARE TEST ORDERABLE S Performing Organization Address City/[facility]/[place] [address] (ABNORMAL) POCT Glucose (08/08/2017 6:23 PM EST) athologist Signature POC Glucose 216 (H) 65 - 199 [facility] mg/dL [facility] LABORATORY Comment: Supplemental ranges: <140 mg/dL before meals <180 mg/dL all other times of the day Specimen Anatomical Collection Method Collection Time Receive d Time (Source) Location / / Volume Laterality Blood specimen 08/08/2017 6:23 PM 018 6:23 (specimen) EST PM EST Yonathan Smith MD POINT OF CARE TEST ORDERABLE S Performing Organization Address [facility]/[place] [address] (ABNORMAL) APTT (08/08/2017 6:00 PM EST) athologist Signature PTT 97 (H) 25 - 35 sec [facility] LABORATORY Comment: The recommended therapeutic range for fu ll dose, unfractionated heparin at [facility] is 80 ? 114 seconds. [...] Smith MD HEMATOLOGY ORDERABLES Performing Organization Address City/[facility]/[place] [address] POCT Glucose (08/08/2017 4:42 PM EST) athologist Signature POC Glucose 78 65 - 199 [facility] mg/dL [facility] LABORATORY Comment: Supplemental ranges: <140 mg/dL before meals <180 mg/dL all other times of the day Specimen Anatomical Collection Method Collection Time Receive d Time (Source) Location / / Volume Laterality Blood specimen 08/08/2017 4:42 PM 018 4:42 (specimen) EST PM EST Yonathan Smith MD POINT OF CARE TEST ORDERABLE S Performing Organization Address City/State/[place] [address] (ABNORMAL) POCT Glucose (08/08/2017 4:01 PM EST) P athologist Signature POC Glucose 58 (L) 65 - 199 [facility] LABORATORY Comment: Supplemental ranges: <140 mg/dL before meals <180 mg/dL all other times of the day Specimen Anatomical Collection Method Collection Time Receive d Time (Source) Location / / Volume Laterality Blood specimen 08/08/2017 4:01 PM 018 4:01 (specimen) EST PM EST Yonathan Smith MD POINT OF CARE TEST ORDERABLE S Performing Organization Address City/State/[place] [address] POCT Glucose (08/08/2017 11:51 AM EST) P athologist Signature POC Glucose 90 65 - 199 [facility] mg/dL [facility] LABORATORY Comment: Supplemental ranges: <140 mg/dL before meals <180 mg/dL all other times of the day Specimen Anatomical Collection Method Collection Time Receive d Time (Source) Location / / Volume Laterality Blood specimen 08/08/2017 11:51 8 (specimen) AM EST 11:51 AM EST Yonathan Smith MD POINT OF CARE TEST ORDERABLE S Performing Organization Address City/State/ZIP Code Phon e Number [address] (ABNORMAL) APTT (08/08/2017 10:27 AM EST) P athologist Signature PTT 64 (H) 25 - 35 sec [facility] LABORATORY Comment: The recommended therapeutic range for fu ll dose, unfractionated heparin at [facility] is 80 ? 114 seconds. [...] Smith MD HEMATOLOGY ORDERABLES Performing Organization Address City/[facility]/ZIP Code Phon e Number [address] POCT Glucose (08/08/2017 8:02 AM EST) athologist Signature POC Glucose 178 65 - 199 [facility] mg/dL [facility] LABORATORY Comment: Supplemental ranges: <140 mg/dL before meals <180 mg/dL all other times of the day Specimen Anatomical Collection Method Collection Time Receive d Time (Source) Location / / Volume Laterality Blood specimen 08/08/2017 8:02 AM 018 8:02 (specimen) EST AM EST Yonathan Smith MD POINT OF CARE TEST ORDERABLE S Performing Organization Address City/[facility]/[place] [address] (ABNORMAL) APTT (08/08/2017 4:51 AM EST) athologist Signature PTT >160 25 - 35 [facility] (Critical) sec [facility] LABORATORY Comment: Called by: HOWARD, Read back by: Melba Jaramillo, Date/Time:08/08/17 05:43. The recommended therapeutic range for fu ll dose, unfractionated heparin at [facility] is 80 ? 114 seconds. [...] Address City/State/ZIP [place] [address] (ABNORMAL) Differential, Automated (08/08/2017 4:51 AM EST) [facility] Method Time Signature Neutrophils % 77.9 % [facility] LABORATORY Neutr Abs (ANC) 8.17 (H) 1.70 - [facility] 6.10 [facility] x10(3)/[facility] LABORATORY Lymphocytes % 10.3 % [facility] LABORATORY Lymphocytes Abs 1.1 0.9 - 3.2 [facility] x10(3)/[facility] LABORATORY Monocytes % 7.0 % [facility] LABORATORY Monocyte Abs 0.7 0.3 - 0.9 [facility] x10(3)/[facility] LABORATORY Eosinophils % 3.6 % [facility] LABORATORY Eosinophils Abs 0.4 0.0 - 0.4 [facility] x10(3)/[facility] LABORATORY Basophils % 0.5 % [facility] LABORATORY Basophils Abs 0.0 0.0 - 0.1 [facility] x10(3)/[facility] [...] Gran Abs 0.07 (H) 0.00 - 0.04 x10(3)/[facility] LABORATORY Specimen Anatomical Collection Method Collection Time Receive d Time (Source) Location / / Volume Laterality Blood specimen 08/08/2017 4:51 AM 018 5:14 (specimen) EST AM EST Resulting Agency Comment Spec In Lab Yonathan Smith MD HEMATOLOGY ORDERABLES Performing Organization Address City/State/[place] [address] (ABNORMAL) Hemogram (08/08/2017 4:51 AM EST) Analysis Performed At Patho logist Time Signature WBC 10.5 (H) 4.0 - 9.5 [facility](3[facility] LABORATORY RBC 3.27 (L) 4.58 - [place] [facility] 5.54 [facility] x10(6)/[facility] LABORATORY Hemoglobin 9.3 (L) 13.7 - [facility] 16.5 gm/dL [facility] LABORATORY Hematocrit 30.3 (L) 40.5 - [facility] 48.5 % [facility] LABORATORY MCV 92.7 82.9 - [facility] 93.1 [facility] LABORATORY MCH 28.4 27.5 - [place] [facility] 32.[address] [facility] LABORATORY MCHC 30.7 (L) 32.0 - [facility] 35.7 gm/dL [facility] LABORATORY Platelets 252 145 - 357 [facility] x10(3)/[facility] LABORATORY RDWSD 54.6 (H) 36.0 - [facility] 45.0 [facility] [facility] LAB[facility]ATORY RDWCV 16.2 (H) 11.4 - [facility] RYAN 13.8 % [facility] LABORATORY MPV 9.1 7.6 - 12.9 [facility] LABORATORY nRBC % Auto 0.0 % [facility] LABORATORY nRBC Abs Auto 0.000 0.000 - [facility] RYAN 0.000 [facility] x10(3)/[facility] LABORATORY Specimen Anatomical Collection Method Collection Time Receive d Time (Source) Location / / Volume Laterality Blood specimen 08/08/2017 4:51 AM 018 5:14 (specimen) EST AM EST Resulting Agency Comment Spec In Lab Yonathan Smith MD HEMATOLOGY ORDERABLES Performing Organization Address City/State/ZIP Code Phon e Number [place] [phone]OSPITAL LAB[address]ATORY [address] (ABNORMAL) Prothrombin Time (08/08/2017 [...] City/State/[place] [address] (ABNORMAL) Basic Metabolic Panel (non-fasting) (08/08/2017 4:51 AM EST) athologist Signature Glucose Lvl 229 (H) 65 - 199 [facility] mg/dL [facility] [...] in patients with acute kidney failure. http://One Parts Bill/DHnkdep http://One [employer] Bill/DHMCnkf Specimen Anatomical Collection Method Collection Time Receive d Time (Source) Location / / Volume Laterality Blood specimen 08/08/2017 4:51 AM 018 5:14 (specimen) EST AM EST Resulting Agency Comment Spec In Lab Yonathan Smith MD CHEMISTRY ORDERABLES Performing Organization Address City/[facility] Phon e Number [address] POCT Glucose (08/08/2017 4:20 AM EST) athologist Signature POC Glucose 193 65 - 199 [facility] LABORATORY Comment: Supplemental ranges: <140 mg/dL before meals <180 mg/dL all other times of the day Specimen Anatomical Collection Method Collection Time Receive d Time (Source) Location / / Volume Laterality Blood specimen 08/08/2017 4:20 AM 018 4:20 (specimen) EST AM EST Yonathan Smith MD POINT OF CARE TEST ORDERABLE S Performing Organization Address City/[facility]/ZIP Code Phon e Number [address] POCT Glucose (08/07/2017 11:11 PM EST) P athologist Signature POC Glucose 124 65 - 199 [facility] mg/dL [facility] LABORATORY Comment: Supplemental ranges: <140 mg/dL before meals <180 mg/dL all other times of the day Specimen Anatomical Collection Method Collection Time Receive d Time (Source) Location / / Volume Laterality Blood specimen 08/07/2017 11:11 8 (specimen) PM EST 11:11 PM EST Yonathan Smith MD POINT OF CARE TEST ORDERABLE S Performing Organization Address City/[facility]/[place] [address] (ABNORMAL) APTT (08/07/2017 10:18 PM EST) athologist Signature PTT 114 (H) 25 - 35 sec [facility] LABORATORY Comment: The recommended therapeutic range for fu ll dose, unfractionated heparin at [facility] is 80 ? 114 seconds. [...] Smith MD HEMATOLOGY ORDERABLES Performing Organization Address [facility]/[place] [address] POCT Glucose (08/07/2017 8:10 PM EST) athologist Signature POC Glucose 140 65 - 199 [facility] LABORATORY Comment: Supplemental ranges: <140 mg/dL before meals <180 mg/dL all other times of the day Specimen Anatomical Collection Method Collection Time Receive d Time (Source) Location / / Volume Laterality Blood specimen 08/07/2017 8:10 PM 018 8:10 (specimen) EST PM EST Yonathan Smith MD POINT OF CARE TEST ORDERABLE S Performing Organization Address City/[facility]/ZIP Code Phon e Number [address] POCT Glucose (08/07/2017 5:27 PM EST) athologist Signature POC Glucose 187 65 - 199 [facility] mg/dL [facility] LABORATORY Comment: Supplemental ranges: <140 mg/dL before meals <180 mg/dL all other times of the day Specimen Anatomical Collection Method Collection Time Receive d Time (Source) Location / / Volume Laterality Blood specimen 08/07/2017 5:27 PM 018 5:27 (specimen) EST PM EST Yonathan Smith MD POINT OF CARE TEST ORDERABLE S Performing Organization Address City/[facility]/ZIP Code Phon e Number [address] POCT Glucose (08/07/2017 3:29 PM EST) athologist Signature POC Glucose 86 65 - 199 [facility] LABORATORY Comment: Supplemental ranges: <140 mg/dL before meals <180 mg/dL all other times of the day Specimen Anatomical Collection Method Collection Time Receive d Time (Source) Location / / Volume Laterality Blood specimen 08/07/2017 3:29 PM 018 3:29 (specimen) EST PM EST Yonathan Smith MD POINT OF CARE TEST ORDERABLE S Performing Organization Address [facility] [place] [address] (ABNORMAL) APTT (08/07/2017 2:50 PM EST) athologist Signature PTT 60 (H) 25 - 35 sec [facility] LABORATORY Comment: The recommended therapeutic range for fu ll dose, unfractionated heparin at [facility] is 80 ? 114 seconds. [...] Smith MD HEMATOLOGY ORDERABLES Performing Organization Address City/[facility]/ZIP [facility] [place] [address] (ABNORMAL) POCT Glucose (08/07/2017 2:23 PM EST) athologist Signature POC Glucose 55 (L) 65 - 199 [facility] LABORATORY Comment: Supplemental ranges: <140 mg/dL before meals <180 mg/dL all other times of the day Specimen Anatomical Collection Method Collection Time Receive d Time (Source) Location / / Volume Laterality Blood specimen 08/07/2017 2:23 PM 018 2:23 (specimen) EST PM EST Yonathan Smith MD POINT OF CARE TEST ORDERABLE S Performing Organization Address City/State/ZIP Code Phon e Number [address] POCT Glucose (08/07/2017 12:08 PM EST) P athologist Signature POC Glucose 77 65 - 199 [facility] mg/dL [facility] LABORATORY Comment: Supplemental ranges: <140 mg/dL before meals <180 mg/dL all other times of the day Specimen Anatomical Collection Method Collection Time Receive d Time (Source) Location / / Volume Laterality Blood specimen 08/07/2017 12:08 8 (specimen) PM EST 12:08 PM EST Yonathan Smith MD POINT OF CARE TEST ORDERABLE S Performing Organization Address City/State/[place] [address] (ABNORMAL) Differential, Automated (08/07/2017 7:30 AM EST) Patholo gist Method Time Signature Neutrophils % 73.8 % [facility] LABORATORY Neutr Abs (ANC) 7.17 (H) 1.70 - [facility] 6.10 [facility] x10(3)/[facility] LABORATORY Lymphocytes % 12.2 % [facility] LABORATORY Lymphocytes Abs 1.2 0.9 - 3.2 [facility] x10(3)/[facility] LABORATORY Monocytes % 9.0 % [facility] LABORATORY Monocyte Abs 0.9 0.3 - 0.9 [facility] x10(3)/[facility] LABORATORY Eosinophils % 3.9 % [facility] LABORATORY Eosinophils Abs 0.4 0.0 - 0.4 [facility] x10(3)/[facility] LABORATORY Basophils % 0.6 % [facility] LABORATORY Basophils Abs 0.1 0.0 - 0.1 [facility] x10(3)/[facility] [...] (H) 0.00 - 0.04 x10(3)/[facility] LABORATORY Specimen Anatomical Collection Method Collection Time Receive d Time (Source) Location / / Volume Laterality Blood specimen 08/07/2017 7:30 AM 018 7:45 (specimen) EST AM EST Resulting Agency Comment Spec In Lab Yonathan Smith MD HEMATOLOGY ORDERABLES Performing Organization Address City/State/[place] [address] (ABNORMAL) Hemogram (08/07/2017 7:30 AM EST) Analysis Performed At Patho logist Time Signature WBC 9.7 (H) 4.0 - 9.5 [facility] x10(3)/[facility] LABORATORY RBC 3.54 (L) 4.58 - [facility] 5.54 [facility] x10(6)/[facility] LABORATORY Hemoglobin 9.9 (L) 13.7 - [facility] 16.5 gm/dL [facility] LABORATORY Hematocrit 32.3 (L) 40.5 - [facility] 48.5 % [facility] LABORATORY MCV 91.2 82.9 - [facility] 93.1 [facility] LABORATORY MCH 28.0 27.5 - [facility] RYAN 32.[address] [facility] LABORATORY MCHC 30.7 (L) 32.0 - [facility] 35.7 gm/dL [facility] LABORATORY Platelets 312 145 - 357 [facility] x10(3)/[facility] LABORATORY RDWSD 53.2 (H) 36.0 - [facility] 45.0 [facility] RDWCV 16.0 (H) 11.4 - [facility] RYAN 13.8 % [facility] LABORATORY MPV 8.9 7.6 - 12.9 [facility] LABORATORY nRBC % Auto 0.0 % [facility] LABORATORY nRBC Abs Auto 0.000 0.000 - [facility] 0.000 [facility] x10(3)/[facility] LABORATORY Specimen Anatomical Collection Method Collection Time Receive d Time (Source) Location / / Volume Laterality Blood specimen 08/07/2017 7:30 AM 018 7:45 (specimen) EST AM EST Resulting Agency Comment Spec In Lab Yonathan Smith MD HEMATOLOGY ORDERABLES Performing Organization Address City/State/[place] [address] (ABNORMAL) Basic Metabolic Panel (non-fasting) (08/07/2017 7:30 AM EST) P athologist Signature Glucose Lvl 80 65 - 199 [facility] mg/dL [facility] [...] or in patients with acute kidney failure. [email or web address]/DHnkdep [email or web address]/DHMCnkf Specimen Anatomical Collection Method Collection Time Receive d Time (Source) Location / / Volume Laterality Blood specimen 08/07/2017 7:30 AM 018 7:45 (specimen) EST AM EST Resulting Agency Comment Spec In Lab Yonathan Smith MD CHEMISTRY ORDERABLES Performing Organization Address City/[facility]/ZIP Code Phon e Number [address] POCT Glucose (08/07/2017 7:27 AM EST) athologist Signature POC Glucose 81 65 - 199 [facility] mg/dL [facility] LABORATORY Comment: Supplemental ranges: <140 mg/dL before meals <180 mg/dL all other times of the day Specimen Anatomical Collection Method Collection Time Receive d Time (Source) Location / / Volume Laterality Blood specimen 08/07/2017 7:27 AM 018 7:27 (specimen) EST AM EST Yonathan Smith MD POINT OF CARE TEST ORDERABLE S Performing Organization Address City/[facility]/ZIP Code Phon e Number [address] APTT (08/07/2017 7:04 AM EST) athologist Signature PTT 34 25 - 35 sec [facility] LABORATORY Comment: The recommended therapeutic range for fu ll dose, unfractionated heparin at [facility] is 80 ? 114 seconds. [...] Smith MD HEMATOLOGY ORDERABLES Performing Organization Address City/[facility]/ZIP Code Phon e Number [address] (ABNORMAL) Prothrombin Time (08/07/2017 [...] Address City/State/ZIP Code Phon e Number [address] POCT Glucose (08/07/2017 4:03 AM EST) athologist Signature POC Glucose 93 65 - 199 [facility] LABORATORY Comment: Supplemental ranges: <140 mg/dL before meals <180 mg/dL all other times of the day Specimen Anatomical Collection Method Collection Time Receive d Time (Source) Location / / Volume Laterality Blood specimen 08/07/2017 4:03 AM 018 4:03 (specimen) EST AM EST Yonathan Smith MD POINT OF CARE TEST ORDERABLE S Performing Organization Address City/State/ZIP Code Phon e Number [address] POCT Glucose (08/07/2017 12:04 AM EST) athologist Signature POC Glucose 107 65 - 199 [facility] LABORATORY Comment: Supplemental ranges: <140 mg/dL before meals <180 mg/dL all other times of the day Specimen Anatomical Collection Method Collection Time Receive d Time (Source) Location / / Volume Laterality Blood specimen 08/07/2017 12:04 8 (specimen) AM EST 12:04 AM EST Yonathan Smith MD POINT OF CARE TEST ORDERABLE S Performing Organization Address City/State/ZIP Code Phon e Number [address] POCT Glucose (08/06/2017 7:56 PM EST) P athologist Signature POC Glucose 178 65 - 199 [facility] mg/dL [facility] LABORATORY Comment: Supplemental ranges: <140 mg/dL before meals <180 mg/dL all other times of the day Specimen Anatomical Collection Method Collection Time Receive d Time (Source) Location / / Volume Laterality Blood specimen 08/06/2017 7:56 PM 018 7:56 (specimen) EST PM EST Yonathan Smith MD POINT OF CARE TEST ORDERABLE S Performing Organization Address City/State/ZIP Code Phon e Number [address] TcPO2 (08/06/2017 2:32 PM EST) Component Value Ref Test Analysis Performed At Patholo gist Range Method Time Signature VB Text Department: Vascular Surgery Lab VASCUBASE Report Patient: [id number] (GREGORY HOANG) CPT: [id number] ICD10: I99.8 Referring Physician: YONATHAN SMITH ?? [...] Mcgrath RN)2024 (Not Given - Provider: Mira Trunog RN - Reason: Order parameters not met) [...] Provider: Kim Borges RN)2144 (Given - Provider: lAyson Middleton RN) 0427 (Given - Provider: Mira [...] documented in this encounter Care Teams Planning Official Relationship Specialty Start Date End Date Lovely Vicente MD PCP - General 04/16/[address] [place] [address] documented as of this encounter
--- OUTSIDE RECORDS SUMMARY | 2022-05-01 08:57 | XMS_ITS | Encounter Summary ---
:1945 [place] [address] Care Team Providers Name Role Phone Lovely Vicente MD Primary Care Provider Encounter Details Date Type Department Care Team Description 08/05/2017 Notes Only Vascular Surgery at [facility] [place], STACIE [facility], [place] [address] VASCULAR SURGERY [phone] [place], [place] [address] (Wo rk) Social History [...] Zulma Dolan MD [facility] [place], [place] [address] (Wo rk) 05/28/2022 Laboratory Appointment Lab 05/28/2022 Office Visit Cardiology Zulma Dolan MD [facility] [place] [address] Liz Poole PA [facility] [place] [address] 06/10/2022 Office Visit Dermatology Laura Scherer MD [facility] [address] [place], [place] [address] (Wo rk) documented as of this encounter Visit Diagnoses Not on filedocumented in this encounter Care Teams Chemical Supervisor Relationship Specialty Start Date End Date Lovely Vicente MD PCP - General 04/16/15 [facility] [address] [place] [address] documented as of this encounter
--- OUTSIDE RECORDS SUMMARY | 2022-05-01 08:57 | XMS_ITS | Encounter Summary ---
:1945 Author Organization [facility] [place] [address] Care Team Providers Name Role Phone Lovely Vicente MD Primary Care Provider Encounter Details Date Type Department Care Team Description 08/04/2017 Orders Only Cardiac Surgery Makayla Wilson APRN [facility] [place] [address] CARDIAC SURGERY [phone] [place], [place] [address] (Wo rk) Social History [...] MD [facility] [place], [place] [address] (Wo rk) 05/28/2022 Laboratory Appointment Lab 05/28/2022 Office Visit Cardiology Zulma Dolan MD [place] [address] Liz Poole PA [facility] [place] [address] 06/10/2022 Office Visit Dermatology Laura Scherer MD [facility] ER [address] [place], [place] [address] (Wo rk) documented as of this encounter Visit Diagnoses Not on filedocumented in this encounter Care Teams Physician Scribe Relationship Specialty Start Date End Date Lovely Vicente MD PCP - General 04/16/[address] [place] [address] documented as of this encounter
--- OUTSIDE RECORDS SUMMARY | 2022-05-01 08:57 | XMS_ITS | Encounter Summary ---
:1945 Author Organization [facility] [place] [address] Care Team Providers Name Role Phone Lovely Vicente MD Primary Care Provider Encounter Details Date Type Department Care Team Description 08/04/2017 Orders Only Cardiac Surgery Makayla Wilson APRN [facility] [place] [address] CARDIAC SURGERY [phone] [place], [place] [address] (Wo rk) Social History [...] MD [facility] [place] [address] (Wo rk) 05/28/2022 Laboratory Appointment Lab 05/28/2022 Office Visit Cardiology Zulma Dolan MD [facility] [place] [address] Liz Poole PA [facility] [place] [address] 06/10/2022 Office Visit Dermatology Laura Scherer MD [facility] ER [address] [place], [place] [address] (Wo rk) documented as of this encounter Visit Diagnoses Not on filedocumented in this encounter Care Teams Bead Forming Machine Operator Relationship Specialty Start Date End Date Lovely Vicente MD PCP - General 04/16/[address] [place] [address] documented as of this encounter
--- OUTSIDE RECORDS SUMMARY | 2022-05-01 08:57 | XMS_ITS | Encounter Summary ---
:1945 [place] [address] Care Team Providers Name Role Phone Lovely Vicente MD Primary Care Provider Reason for Visit Auth/Cert Specialty Diagnoses / Procedures Referred By Contact Refer red To Contact Diagnoses Critical lower limb ischemia CELLULITIS RT FOOT Procedures EMERGENCY Referral ID Status Reason Start Date Expiration Date Visits Requ ested Visits Authorized [id number] 1 1 Encounter Details Date Type Department Care Team Description 08/09/2017 Anesthesia Event Main Operating Room Daniele Lizama MD [facility] [place] [address] [facility] Rob Jones MD [facility] [place] [address] [place] [address] Anesthesia Record Procedure Summary Procedure Name [...] Knowles, Dory arm), right; VAMSI Rios, RN emlj-nsp-afmsox catheter system; 20 gauge; 08/16/17; 1047 PIV 07/29/17; 1413; median 07/29/17 1413 by 08/16/17 1047 by cubital vein (antecubital Magdalene Hickey Williams, Dory fossa), left; VAMSI Wyatt, RN nfkh-isv-ocfnra catheter system; 20 gauge; 08/16/17; 1047 PIV 08/06/17; 1742; cephalic 08/06/17 1742 by 0920 by vein (lateral side of Taylor Laureano Danah y, Caitlyn C, arm), right; VAMSI BONNER cije-gvn-gbhobk catheter system; 22 gauge, 1 in length; Eliseo LAUREANO RN VAS; distraction, intradermal injection, tolerated well, appears comfortable; 0; 08/16/17; 0920 Wound 08/07/17; 1335; knee; 08/07/17 1335 by 08/16/17 1047 by laceration; wound occured Barbara Albert iams, Dory RESEARCH LABORATORY MANAGER; 08/16/17; 1047 VAMSI Alonzo, RN PIV 08/07/17; 1734; cephalic 08/07/17 1734 by 1047 by vein (lateral side of Kendrick, Carlos W, Willia ms, Dory arm), left; MARCIE Wyatt RN fbzu-ecj-emykcg catheter system; 22 gauge; distraction, intradermal injection, [...] Santillan MD - 08/09/2017 9:01 AM EST [facility] Department of Anesthesiology Post-procedure Note Patient: Don Fatima Procedure Summary Date Anesthesia Start Anesthesia Stop Room / Location 08/09/17 0802 0901 [facility] OR 14 / [facility] MAIN OR Procedure Diagnosis Surgeon Responsible Provider AMPUTATION, 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 Nerve [...] [facility] MAIN OR ??? PRO CABG, ARTERIAL, SINGLE N/A 07/07/2017 @CABG, USING ARTERIAL GRAFT;SINGLE ARTERIAL GRAFT (WRVU 33.75) performed by Yuan Retana MD at [facility] MAIN OR ??? PRO CABG, ARTERY-VEIN, TWO N/A 07/07/2017 @CABG, TWO VENOUS GRAFTS & ARTERIAL GRAFT (WRVU 7.93) performed by Yuan Retana MD at [facility] MAIN OR ??? PRO COLONOSCOPY, REMV LESN, SNARE 01/16/2014 COLONOSCOPY, POLYPECTOMY, REMOVAL LESION BY SNARE performed by Nohemi Jaimes MD at [facility] ENDOSCOPY ??? PRO ENDOSCOPY W/VIDEO-ASST VEIN HARVEST, CABG Right 07/07/2017 ENDOSCOPIC HARVEST VEIN(S) FOR CABG (WRVU 0.31) performed by Yuan Retana MD at [facility] MAIN OR ??? PRO THYROIDECTOMY [...] adequate IV access. Brody Santillan MD PGY-2, Tower Foreman Pager #[phone] Anesthesiology Staff (Dewhirst): Pre-op summary note as [...] Dolan MD [facility] [address] [place], [place] [address] (Wo rk) 05/28/2022 Laboratory Appointment Lab 05/28/2022 Office Visit Cardiology Zulma Dolan MD [facility] [place] [address] Liz Poole PA [facility] [place] [address] 06/10/2022 Office Visit Dermatology Laura Scherer MD [facility] [address] [place], [place] [address] (Wo rk) documented as of [...] Length: 10 cm Gauge: 21 Needle Type: D-yaehc-txfst Medication injection made in crementally with aspirations. [...] Procedure) documented in this encounter Care Teams Loom Fixer Supervisor Relationship Specialty Start Date End Date Lovely Vicente MD PCP - General 04/16/[address] [place] [address] documented as of this encounter
--- OUTSIDE RECORDS SUMMARY | 2022-05-01 08:57 | XMS_ITS | Encounter Summary ---
:1945 Author Organization [facility] [place] [address] Care Team Providers Name Role Phone Lovely Vicente MD Primary Care Provider Encounter Details Date Type Department Care Team Description 08/06/2017 Orders Only Vascular Surgery at [facility] Eden Moss APRN Ischemia of foot [facility] [address] VASCULAR SURGERY [phone] [place], [place] [address] (Wo rk) Social History Tobacco [...] [facility] [place], [place] [address] (Wo rk) 05/28/2022 Laboratory Appointment Lab 05/28/2022 Office Visit Cardiology Zulma Dolan MD [facility] [place] [address] Liz Poole PA [facility] [place] [address] 06/10/2022 Office Visit Dermatology Laura Scherer MD [facility] ER [address] TEJA GR-DERMAT [place], [place] 0[address] (Wo [...] 444 ms MUSE SYSTEM (Bezet) Calculated P [place] 44 degrees MUSE SYSTEM Calculated R [place] -31 degrees MUSE SYSTEM Calculated T [place] 106 degrees MUSE SYSTEM INTERPRETATION Normal sinus [...] (L) 20 - 40 KATALINA RYAN mg/dL [facility] Comment: Prealbumin levels are generally [...] Organization Address City/State/[place] [address] (ABNORMAL) Basic Metabolic Panel (non-fasting) (08/06/2017 12:32 PM EST) athologist Signature Glucose Lvl 92 65 - 199 [facility] mg/dL [facility] [...] HOSPITAL LABORATORY Estimated GFR 53 (L) >=60 [facility] Comment: The reported eGFR should be multiplied b y 1.2 for patients. The MDRD is not an appropriate measure o f renal function for patients with body mass extremes or in patients with acute kidney failure. http://ebookpie/DHnkdep http://ebookpie/DHMCnkf Specimen Anatomical Collection Method Collection Time Receive d Time (Source) Location / / Volume Laterality Blood specimen 08/06/2017 12:32 8 1:15 (specimen) PM EST PM EST Resulting Agency Comment Spec In Lab Arik Clement MD CHEMISTRY ORDERABLES Performing Organization Address City/State/[place] [address] (ABNORMAL) Hemogram (08/06/2017 12:32 PM EST) Analysis Performed At Patho logist Time Signature WBC 11.8 (H) 4.0 - 9.5 [facility] x10(3)/[facility] LABORATORY RBC 3.49 (L) 4.[address] [facility] 5.54 [facility] x10(6)/[facility] LABORATORY Hemoglobin 9.9 (L) 13.7 - [facility] 16.[facility] gm/dL [facility] Hematocrit 32.0 (L) 40.[address] [facility] 48.5 % [facility] MCV 91.7 82.[address] [facility] 93.1 [facility] LABORATORY MCH 28.4 27.[address] [facility] 32.1 pg [facility] MCHC 30.9 (L) 32.0 - [facility] 35.7 gm/dL [facility] Platelets 326 145 - 357 [facility] x10(3)/[facility] LABORATORY RDWSD 53.4 (H) 36.0 - [facility] 45.0 [facility] LABORATORY RDWCV 16.0 (H) 11.4 - [facility] 13.8 % [facility] MPV 9.1 7.6 - 12.9 [facility] LABORATORY nRBC % Auto 0.0 % [facility] nRBC Abs Auto 0.000 0.000 - [facility] 0.000 [facility] x10(3)/[facility] LABORATORY Specimen Anatomical Collection Method Collection Time Receive d Time (Source) Location / / Volume Laterality Blood specimen 08/06/2017 12:32 8 1:15 (specimen) PM EST PM EST Resulting Agency Comment Spec In Lab Arik Clement MD HEMATOLOGY ORDERABLES Performing Organization Address City/State/[place] [address] documented in this encounter Visit Diagnoses Diagnosis Ischemia of foot Unspecified circulatory system disorder documented in this encounter Care Teams Seed Laboratory Assistant Relationship Specialty Start Date End Date Lovely Vicente MD PCP - General 04/16/[address] [place] [address] documented as of this encounter
--- OUTSIDE RECORDS SUMMARY | 2022-05-01 08:57 | XMS_ITS | Encounter Summary ---
:1945 Author Organization [facility] [place] [address] Care Team Providers Name Role Phone Lovely Vicente MD Primary Care Provider Reason for Visit Auth/Cert Specialty Diagnoses / Procedures Referred By Contact Refer red To Contact Diagnoses Critical lower limb ischemia CELLULITIS RT FOOT Procedures EMERGENCY Referral ID Status Reason Start Date Expiration Date Visits Requ ested Visits Authorized [id number] 1 1 Encounter Details Date Type Department Care Team Description 08/06/2017 Laboratory Appointment Lab at [facility]schemia of foot [facility] [place] [address] Social History Tobacco Use Types Packs/Day [...] MD [facility] er [address] [place] 0[address] (Wo rk) 05/28/2022 Laboratory Appointment Lab 05/28/2022 Office Visit Cardiology Zulma Dolan MD [facility] [place] [address] Liz Poole PA [facility] [place] [address] 06/10/2022 Office Visit Dermatology Laura Scherer MD [facility] ER DR [address]-DERMAT [facility] [place], [place] [address] (Wo rk) documented [...] Signature Prealbumin 19 (L) 20 - 40 [facility] mg/dL [facility] Comment: Prealbumin levels are generally lower [...] City/State/[place] [address] (ABNORMAL) Basic Metabolic Panel (non-fasting) (08/06/2017 12:32 PM EST) P athologist Signature Glucose Lvl 92 65 - 199 [facility] mg/dL [facility] [...] HOSPITAL LABORATORY Estimated GFR 53 (L) >=60 [facility] Comment: The reported eGFR should be multiplied b y 1.2 for patients. The MDRD is not an appropriate measure o f renal function for patients with body mass extremes or in patients with acute kidney failure. http://Medxnote/DHnkdep http://Medxnote/DHMCnkf Specimen Anatomical Collection Method Collection Time Receive d Time (Source) Location / / Volume Laterality Blood specimen 08/06/2017 12:32 8 1:15 (specimen) PM EST PM EST Resulting Agency Comment Spec In Lab Arik Clement MD CHEMISTRY ORDERABLES Performing Organization Address City/State/[place] [address] (ABNORMAL) Hemogram (08/06/2017 12:32 PM EST) Analysis Performed At Patho logist Time Signature WBC 11.8 (H) 4.0 - 9.5 [facility] x10(3)/[facility] LABORATORY RBC 3.49 (L) 4.58 - [facility] 5.54 [facility] x10(6)/[facility] LABORATORY Hemoglobin 9.9 (L) 13.7 - [facility] 16.5 gm/dL [facility] LABORATORY Hematocrit 32.0 (L) 40.5 - [facility] 48.5 % [facility] LABORATORY MCV 91.7 82.9 - [facility] 93.1 [facility] LABORATORY MCH 28.4 27.5 - KATALINA DAVIS 32.1 pg [facility] LABORATORY MCHC 30.9 (L) 32.0 - KATALINA DAVIS 35.7 gm/dL [facility] LABORATORY Platelets 326 145 - 357 [facility] x10(3)/[facility] LABORATORY RDWSD 53.4 (H) 36.0 - KATALINA DAVIS 45.0 [facility] LABORATORY RDWCV 16.0 (H) 11.4 - KATALINA RYAN 13.8 % [facility] LABORATORY MPV 9.1 7.6 - 12.9 [facility] LABORATORY nRBC % Auto 0.0 % [facility] LABORATORY nRBC Abs Auto 0.000 0.000 - KATALINA DAVIS 0.000 [facility] x10(3)/[facility] LABORATORY Specimen Anatomical Collection Method Collection Time Receive d Time (Source) Location / / Volume Laterality Blood specimen 08/06/2017 12:32 8 1:15 (specimen) PM EST PM EST Resulting Agency Comment Spec In Lab Arik Clement MD HEMATOLOGY ORDERABLES Performing Organization Address City/State/ZIP Code Phon e Number [place] [phone] documented in this encounter Visit Diagnoses Diagnosis Ischemia of foot Unspecified circulatory system disorder documented in this encounter Care Teams Vendor Management Associate Relationship Specialty Start Date End Date Lovely Vicente MD PCP - General 04/16/[address] [place] [address] documented as of this encounter
--- OUTSIDE RECORDS SUMMARY | 2022-05-01 08:57 | XMS_ITS | Encounter Summary ---
:1945 Author Organization [facility] [place] [address] Care Team Providers Name Role Phone Lovely Vicente MD Primary Care Provider Reason for Visit Auth/Cert Specialty Diagnoses / Procedures Referred By Contact Refer red To Contact Diagnoses Critical lower limb ischemia CELLULITIS RT FOOT Procedures EMERGENCY Referral ID Status Reason Start Date Expiration Date Visits Requ ested Visits Authorized [id number] 1 1 Encounter Details Date Type Department Care Team Description 08/06/2017 Clinical Support [facility] [place] [facility] [place]schemia of foot [facility] [place] [address] Social History Tobacco Use Types Packs/Day [...] noother symptoms except severe right foot pain. [facility] clinic called as pt on [...] MD [facility] Dr [place], [place] [address] (Wo rk) 05/28/2022 Laboratory Appointment Lab 05/28/2022 Office Visit Cardiology Zulma Dolan MD [facility] [place] [address] Liz Poole PA [facility] [place] [address] 06/10/2022 Office Visit Dermatology Laura Scherer MD [facility] [address] [place], [place] [address] (Wo rk) documented as of [...] 444 ms MUSE SYSTEM (Bezet) Calculated P [place] 44 degrees MUSE SYSTEM Calculated R [place] -31 degrees MUSE SYSTEM Calculated T [place] 106 degrees MUSE SYSTEM INTERPRETATION Normal sinus [...] disorder documented in this encounter Care Teams Inspecting Machine Adjuster Relationship Specialty Start Date End Date Lovely Vicente MD PCP - General 04/16/[address] [place] [address] documented as of this encounter
--- OUTSIDE RECORDS SUMMARY | 2022-05-01 08:57 | XMS_ITS | Encounter Summary ---
:1945 [place] [address] Care Team Providers Name Role Phone Lovely Vicente MD Primary Care Provider Encounter Details Date Type Department Care Team Description 08/04/2017 Notes Only Cardiac Surgery Makayla Wilson APRN [facility] [place] [address] CARDIAC SURGERY [phone] [place], [place] [address] (Wo rk) Social History Tobacco [...] Zulma Dolan MD [facility] [place], [place] [address] (Wo rk) 05/28/2022 Laboratory Appointment Lab 05/28/2022 Office Visit Cardiology Zulma Dolan MD [facility] [place] [address] Liz Poole PA [facility] [place] [address] 06/10/2022 Office Visit Dermatology Laura Scherer MD [facility] DR [address] [place], [place] [address] (Wo rk) documented as of this encounter Visit Diagnoses Not on filedocumented in this encounter Care Teams Instructor Nurse Relationship Specialty Start Date End Date Lovely Vicente MD PCP - General 04/16/[address] [place] [address] documented as of this encounter
--- OUTSIDE RECORDS SUMMARY | 2022-05-01 08:57 | XMS_ITS | Encounter Summary ---
:1945 Author Organization [facility] [place] [address] Care Team Providers Name Role Phone Lovely Vicente MD Primary Care Provider Reason for Visit Auth/Cert Specialty Diagnoses / Procedures Referred By Contact Refer red To Contact Diagnoses Critical lower limb ischemia CELLULITIS RT FOOT Procedures EMERGENCY Referral ID Status Reason Start Date Expiration Date Visits Requ ested Visits Authorized [id number] 1 1 Encounter Details Date Type Department Care Team Description 08/06/2017 Hospital Encounter [facility] [place] [address] Social History Tobacco Use Types Packs/Day [...] 0 04/18/2018 acids 1,000 mg Capsule daily. fluocinolone acetonide Twice daily to less 60 mL 2 09/2308/16/2017 (SYNALAR) 0.01 % severe areas of external psoriasis solutionIndications: Psoriasis documented as of this encounter Plan of Treatment Upcoming Encounters Date Type Specialty Care Team Description 05/28/2022 Appointment Cardiology Zulma Dolan MD [facility] [address] [place], [place] [address] (Wo rk) 05/28/2022 Laboratory Appointment Lab 05/28/2022 Office Visit Cardiology Zulma Dolan MD [facility] [place] [address] Liz Poole PA [facility] [place] [address] 06/10/2022 Office Visit Dermatology Laura Scherer MD [facility] DR [address]DERMAT [place], [place] [address] (Wo rk) documented as of this encounter Visit Diagnoses Not on filedocumented in this encounter Care Teams Returned Materials Inspector Relationship Specialty Start Date End Date Lovely Vicente MD PCP - General 04/16/[address] [place] [address] documented as of this encounter
--- OUTSIDE RECORDS SUMMARY | 2022-05-01 08:58 | XMS_ITS | Encounter Summary ---
:1945 [place] [address] Care Team Providers Name Role Phone Lovely Vicente MD Primary Care Provider Encounter Details Date Type Department Care Team Description 08/03/2017 Hospital Encounter Radiology Library at [place], Tommy Mijares [facility] [place] [address] VASCULAR SURGERY [phone] [place], [place] [address] (Wo rk) Social History Tobacco [...] 0 06/2612/12/2021 2.5 mg Tablet daily. [place] pen Inject 20 Units 15 mL [...] 04/18/2018 fatty acids 1,000 mg daily. Capsule fluocinolone Twice daily to less 60 mL 2 10/04/2012 acetonide (SYNALAR) severe areas of 0.01 % external psoriasis solutionIndications: Psoriasis documented as of this encounter Plan of Treatment Upcoming Encounters Date Type Specialty Care Team Description 05/28/2022 Appointment Cardiology Zulma Dolan MD [facility] Dr [place], [place] [address] (Wo rk) 05/28/2022 Laboratory Appointment Lab 05/28/2022 Office Visit Cardiology Zulma Dolan MD [facility] [place] [address] Liz Poole PA [facility] [place] [address] 06/10/2022 Office Visit Dermatology Laura Scherer MD [facility] [address]MAT [place], [place] [address] [...] Received Time / Laterality Volume Narrative [facility] - 08/03/2017 6:03 PM EST This exam is for storage only and is aut o-finalizing. Arik Clement MD G FILM LIBRARY ORDERABLES Performing Organization Address City/State/ZIP Code Phon e Number [place], [place] documented in this encounter Visit Diagnoses Diagnosis Pain Generalized pain documented in this encounter Care Teams Advertising Display Rotator Relationship Specialty Start Date End Date Lovely Vicente MD PCP - General 04/16/[address] [place] [address] documented as of this encounter
--- OUTSIDE RECORDS SUMMARY | 2022-05-01 08:58 | XMS_ITS | Encounter Summary ---
:1945 [place] [address] Care Team Providers Name Role Phone Lovely Vicente MD Primary Care Provider Encounter Details Date Type Department Care Team Description 08/04/2017 Notes Only Cardiac Surgery Makayla Wilson DEPUTY BRAND INSPECTOR [facility] [place] [address] CARDIAC SURGERY [phone] [place], [place] [address] (Wo rk) Social History Tobacco [...] Dolan MD [facility] Dr [place], [place] [address] (Wo rk) 05/28/2022 Laboratory Appointment Lab 05/28/2022 Office Visit Cardiology Zulma Dolan MD [facility] [place] [address] Liz Poole PA [facility] [place] [address] 06/10/2022 Office Visit Dermatology Laura Scherer MD [facility] DR [address] GR[address]DERMAT [facility] [place], [place] [address] (Wo rk) documented as of this encounter Visit Diagnoses Not on filedocumented in this encounter Care Teams Termite Inspector Relationship Specialty Start Date End Date Lovely Vicente MD PCP - General 04/16/[address] [place] [address] documented as of this encounter
--- OUTSIDE RECORDS SUMMARY | 2022-05-01 08:58 | XMS_ITS | Encounter Summary ---
:1945 Author Organization [facility] [place] [address] Care Team Providers Name Role Phone Lovely Vicente MD Primary Care Provider Reason for Visit Reason Comments Follow-up Encounter Details Date Type Department Care Team Description 07/29/2017 Office Visit Cardiac Surgery at [facility] Yuan Retana MD S/P CABG x 3 [facility] [place] [address] CARDIOTHORACIC SURGERY [phone] [place], [place] [address] (Wo rk) Social History Tobacco [...] evaluation by vascular surgery. Yuan Retana MD [phone] documented in this encounter Plan of Treatment Upcoming Encounters Date Type Specialty Care Team Description 05/28/2022 Appointment Cardiology Zulma Dolan MD [facility] er Dr [place] [address] (Wo rk) 05/28/2022 Laboratory Appointment Lab 05/28/2022 Office Visit Cardiology Zulma Dolan MD [facility] [place] [address] Liz Poole PA [facility] [place] [address] 06/10/2022 Office Visit Dermatology Laura Scherer MD [facility] ER DR [address]MAT [place], [place] [address]37 (Wo rk) documented as of this encounter Visit Diagnoses Diagnosis S/P CABG x 3 Postsurgical aortocoronary bypass status documented in this encounter Care Teams Radiation / Chemistry Technician Relationship Specialty Start Date End Date Lovely Vicente MD PCP - General 04/16/[address] [place] [address] documented as of this encounter
--- OUTSIDE RECORDS SUMMARY | 2022-05-01 08:58 | XMS_ITS | Encounter Summary ---
:1945 Author Organization [facility] [place] [address] Care Team Providers Name Role Phone Lovely Vicente MD Primary Care Provider Reason for Visit Reason Comments Pain Management Ankle Pain Toe Pain Encounter Details Date Type Department Care Team Description 07/30/2017 Office Visit Pain Management at Barbra Soares, Per ipheral neuropathy [place] MEDICAL DEVICE ENGINEER due to ischemia [facility] [address], [place], [place] [phone] Social History Tobacco Use Types Packs/Day Years [...] Soares APRN - 07/30/2017 1:45 PM EST [facility] [place] [address] Phone: PAIN MANAGEMENT NEW PATIENT / CONSULTATION NOTE DATE OF VISIT 07/30/2017 Patient Don Fatima 1945 REFERRING PROVIDER Lovely Vicente MD [address] [place] [address] PRIMARY CARE PROVIDER Lovely Vicente MD CHIEF [...] much relief PAST THERAPIES: Nothing MEDICATIONS The [place] Prescription Monitoring Program was checked and no [...] performed by Manny Mcknight MD at [facility] OR ??? PRO CABG, ARTERIAL, SINGLE N/A 07/07/2017 @CABG, USING ARTERIAL GRAFT;SINGLE ARTERIAL GRAFT (WRVU 33.75) performed by Yuan Retana MD at [facility] OR ??? PRO CABG, ARTERY-VEIN, TWO N/A 07/07/2017 @CABG, TWO VENOUS GRAFTS & ARTERIAL GRAFT (WRVU 7.93) performed by Yuan Retana MD at [facility] OR ??? PRO COLONOSCOPY, REMV LESN, SNARE 01/16/2014 COLONOSCOPY, POLYPECTOMY, REMOVAL LESION BY SNARE performed by Nohemi Jaimes MD at [facility] ENDOSCOPY ??? PRO ENDOSCOPY W/VIDEO-ASST VEIN HARVEST, CABG Right 07/07/2017 ENDOSCOPIC HARVEST VEIN(S) FOR CABG (WRVU 0.31) performed by Yuan Retana MD at [facility] OR ??? PRO THYROIDECTOMY 03/28/2013 [...] referral, Lovely Vicente MD [address] [place] [address]. Barbra Soares, MSN, SALESPERSON ART OBJECTS-BC, MEDICAL DEVICE ENGINEER Nurse Practitioner Pain Management Center documented in this encounter Plan of Treatment Upcoming Encounters Date Type Specialty Care Team Description 05/28/2022 Appointment Cardiology Zulma Dolan MD [facility] [place], [place] [address] (Wo rk) 05/28/2022 Laboratory Appointment Lab 05/28/2022 Office Visit Cardiology Zulma Dolan MD [facility] [place] [address] Liz Poole PA [facility] [place] [address] 06/10/2022 Office Visit Dermatology Laura Scherer MD [facility] DR [address] [place], [place] [address] (Wo rk) documented as of this encounter Visit Diagnoses Diagnosis 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
--- OUTSIDE RECORDS SUMMARY | 2022-05-01 08:58 | XMS_ITS | Encounter Summary ---
:1945 Author Organization [facility] [place] [address] Care Team Providers Name Role Phone Lovely Vicente MD Primary Care Provider Encounter Details Date Type Department Care Team Description 08/02/2017 Telephone Pain Management at [place], [place] [address] Social History Tobacco Use Types Packs/Day [...] Management Center Preauthorization Request Patient: Don Fatima [phone] Fax received from [facility] requesting we obtain prior authorization for Lidocaine patches prescribed by Barbra Soares APRN. RX insurance plan: [employer] insurance telephone: [phone] Patient Diagnosis: right foot pain secondary to PVD and ischemia Previous medications attempted: Tylenol, Tramadol, Dilaudid The following action was taken after discussion with the intermodal customer service: _x_ pharmacy informed Authorized dosage or amount: 5% on patch on for 12 hours, then remove for 12 hours. [place] Rodrigez, RN documented in this encounter Plan of Treatment Upcoming Encounters Date Type Specialty Care Team Description 05/28/2022 Appointment Cardiology Zulma Dolan MD [facility] [place], [place] [address] (Wo rk) 05/28/2022 Laboratory Appointment Lab 05/28/2022 Office Visit Cardiology Zulma Dolan MD [facility] [place] [address] Liz Poole PA [facility] [place] [address] 06/10/2022 Office Visit Dermatology Laura Scherer MD [facility] [address] [place], [place] [address] (Wo rk) documented as of this encounter Visit Diagnoses Not on filedocumented in this encounter Care Teams .Net Architect Relationship Specialty Start Date End Date Lovely Vicente MD PCP - General 04/16/[address] [place] [address] documented as of this encounter
--- OUTSIDE RECORDS SUMMARY | 2022-05-01 08:58 | XMS_ITS | Encounter Summary ---
:1945 Author Organization [facility] [place] [address] Care Team Providers Name Role Phone Lovely Vicente MD Primary Care Provider Reason for Visit Reason Comments Foot Pain Auth/Cert Specialty Diagnoses / Procedures Referred By Contact Refer red To Contact Diagnoses Ischemic foot Procedures NAYE OBSVO Referral ID Status Reason Start Date Expiration Date Visits Requ ested Visits Authorized [id number] 1 1 Encounter Details Date Type Department Care Team Description 07/27/2017 Emergency 1 [facility] Lokesh Swenson MD [facility] [place] [address] Femoral artery pseudo-aneurysm, right; [facility] Tam Bauman MD [facility] [place] [address] [place] [address] Social History Tobacco Use Types Packs/Day [...] Gregory Fatima Patient Age: 72 y.o. Language: Nicaraguan Race: White Ethnicity: Not [...] the [facility] Clinical Implementation Specialist . Issues after hours and on weekends [...] he was started on Coumadin given elevated [id number] score. He presented 2 weeks following that, on 07/20, with RLE pain/pallor andwas found to have critical limb ischemia in setting of subtherapeutic INR, pseudoaneurysm Rt UX LEAD and occlusion b/l ant tibial arteries. He [...] in the last 7068 hours. Invalid input(s): [id number] Recent Labs 07/08/17 0400 07/07/17 0515 07/06/17 [...] OSWALDO, THREE L Lab 3L [facility] [phone] 07/30/2017 9:40 AM Danette Maxwell APRN Cardiology at [place] [phone] 08/04/2017 1:00 PM Daniele Mooney [place] Vascular Lab at [place] [phone] 08/04/2017 2:15 PM Arik Clement MD Vascular Surgery at [place] [phone] 08/11/2017 10:00 AM [facility] ROOM 2 XRay at [place] [phone] Please go to Global Manager Area 3T ([place] Location). 08/11/2017 11:00 AM Yuan Retana MD Cardiac Surgery at [place] [phone] 09/07/2017 3:00 PM LAB, THREE L Lab 3L [facility] [phone] 09/07/2017 4:00 PM Luz Prescott MD Endocrinology at [place] [phone] Discharge References/Attachments None documented in this encounter [...] MINI 31 gauge x 4 times daily. 316 Needle aspirin 81 mg EC Take 81 [...] Gas) No results found for: PHART, PO2ART, UBU6MUU Assessment/Plan: 72 y.o. 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 [place] body weight: 68.4 kg (150 lb 12.7 [...] spent >30 minutes (Day of Discharge Code 96466) involved in the final examination of the [...] he was started on Coumadin given elevated SLGQ7QYPAG score. He presented 2 weeks following that, on 07/20, with RLE pain/pallor andwas found to have critical limb ischemia in setting of subtherapeutic INR, pseudoaneurysm Rt UX LEAD and occlusion b/l ant tibial arteries. He [...] [facility] MAIN OR ??? PRO CABG, ARTERIAL, SINGLE N/A 07/07/2017 @CABG, USING ARTERIAL GRAFT;SINGLE ARTERIAL GRAFT (WRVU 33.75) performed by Yuan Retana MD at [facility] MAIN OR ??? PRO CABG, ARTERY-VEIN, TWO N/A 07/07/2017 @CABG, TWO VENOUS GRAFTS & ARTERIAL GRAFT (WRVU 7.93) performed by Yuan Retana MD at [facility] MAIN OR ??? PRO COLONOSCOPY, REMV LESN, SNARE 01/16/2014 COLONOSCOPY, POLYPECTOMY, REMOVAL LESION BY SNARE performed by Nohemi Jaimes MD at [facility] ENDOSCOPY ??? PRO ENDOSCOPY W/VIDEO-ASST VEIN HARVEST, CABG Right 07/07/2017 ENDOSCOPIC HARVEST VEIN(S) FOR CABG (WRVU 0.31) performed by Yuan Retana MD at [facility] MAIN OR ??? PRO THYROIDECTOMY 03/28/2013 THYROIDECTOMY, TOTAL OR COMPLETE performed by Manny Mcknight MD at [facility] MAIN OR Prior To Admission Medications: [...] Procedure Component Value Units Date/Time Blood culture [[id number]] Collected: 07/09/1739 Lab Status: Final result Specimen: Blood from Arm, Right Updated: 07/14/17701 Blood Culture No growth at 5 days. Blood culture [[id number]] Collected: 07/09/170 Lab Status: Final result Specimen: [...] Full Code Family PCP Lovely Vicente MD [phone] Attestation Please see my note for details [...] encounter Miscellaneous Notes Plan of Care - [place]-Joyce Damian, PT - 07/27/2017 3:26 PM EST [...] Anticipated Discharge Disposition: home with assist Pager: [phone] JOYCE KING, PT Inpatient Physical Therapy 2017 [...] patient's evaluation including the following functional test(s) [facility]. Current ability measures, co-morbidities and clinical [...] [facility] MAIN OR ??? PRO CABG, ARTERIAL, SINGLE N/A 07/07/2017 @CABG, USING ARTERIAL GRAFT;SINGLE ARTERIAL GRAFT (WRVU 33.75) performed by Yuan Retana MD at [facility] MAIN OR ??? PRO CABG, ARTERY-VEIN, TWO N/A 07/07/2017 @CABG, TWO VENOUS GRAFTS & ARTERIAL GRAFT (WRVU 7.93) performed by Yuan Retana MD at [facility] MAIN OR ??? PRO COLONOSCOPY, REMV LESN, SNARE 01/16/2014 COLONOSCOPY, POLYPECTOMY, REMOVAL LESION BY SNARE performed by Nohemi Jaimes MD at [facility] ENDOSCOPY ??? PRO ENDOSCOPY W/VIDEO-ASST VEIN HARVEST, CABG Right 07/07/2017 ENDOSCOPIC HARVEST VEIN(S) FOR CABG (WRVU 0.31) performed by Yuan Retana MD at [facility] MAIN OR ??? PRO THYROIDECTOMY 03/28/2013 THYROIDECTOMY, TOTAL OR COMPLETE performed by Manny Mcknight MD at [facility] MAIN OR MEDICATIONS: No current facility-administered [...] up in clinic 1-2 weeks after discharge. [facility] Vascular Surgery Plan of Care [...] Zulma Dolan MD [facility] [place], [place] [address] (Wo rk) 05/28/2022 Laboratory Appointment Lab 05/28/2022 Office Visit Cardiology Zulma Dolan MD [facility] [place] [address] [facility] [place] [address] 06/10/2022 Office Visit Dermatology Laura Scherer MD [facility] [address] [place], [place] [address] (Wo rk) documented as [...] Signature POC Glucose 175 65 - 199 [facility] mg/dL [facility] LABORATORY Comment: Supplemental ranges: <140 mg/dL before meals <180 mg/dL all other times of the day Specimen Anatomical Collection Method Collection Time Receive d Time (Source) Location / / Volume Laterality Blood specimen 07/27/2017 11:53 8 (specimen) AM EST 11:53 AM EST Tam Bauman MD POINT OF CARE TEST ORDERABLE S Performing Organization Address City/State/[place] [address] Arterial Duplex Leg, Unil (07/27/2017 7:40 AM EST) Component Value Ref Test Analysis Performed At Patholo gist Range Method Time Signature VB Text Department: Vascular Surgery Lab VASCUBASE Report Patient: [id number] (GREGORY FATIMA) CPT: 26019 ICD10: I97.610;I72.4;Z09 Referring Physician: TAM BAUMAN ?? [...] Signature POC Glucose 96 65 - 199 [facility] mg/dL [facility] Comment: Supplemental ranges: <140 mg/dL before meals <180 mg/dL all other times of the day Specimen Anatomical Collection Method Collection Time Receive d Time (Source) Location / / Volume Laterality Blood specimen 07/27/2017 6:51 AM 018 6:51 (specimen) EST AM EST aTm Bauman MD POINT OF CARE TEST ORDERABLE S Performing Organization Address City/[facility]/ZIP [facility] Phon e Number [address] ABORH Recheck Status (07/27/2017 [...] [facility]/[place] [address] Gold Tube HOLD (07/27/2017 12:53 AM EST) P athologist Signature Gold Hold Sample in [facility]. [facility] Specimen Anatomical Collection Method Collection Time Receive d Time (Source) Location / / Volume Laterality Blood specimen Venous Draw / 07/27/2017 12:53 07/27/19 18 1:01 (specimen) Unknown AM EST AM EST Angela Swenson MD CHEMISTRY ORDERABLES Performing Organization Address City/State/[place] [address] (ABNORMAL) Differential, Automated (07/27/2017 12:53 AM EST) Patholo gist Method Time Signature Neutrophils % 75.0 % [facility] LABORATORY Neutr Abs (ANC) 11.30 (H) 1.70 - [facility] 6.10 [facility] x10(3)/[facility] LABORATORY Lymphocytes % 9.9 % [facility] LABOR[facility]ORY Lymphocytes Abs 1.5 0.9 - 3.2 [facility] x10(3)/[facility] LABORATORY Monocytes % 8.6 % [facility] LABORATORY Monocyte Abs 1.3 (H) 0.3 - 0.9 [facility] x10(3)/[facility] LABORATORY Eosinophils % 4.8 % [facility] LABORATORY Eosinophils Abs 0.7 (H) 0.0 - 0.4 [facility] x10(3)/[facility] LABORATORY Basophils % 0.8 % [facility] LABORATORY Basophils Abs 0.1 0.0 - 0.1 [facility] x10(3)/[facility] LABORATORY Immature Gran % 0.90 [...] City/State/[place] [address] (ABNORMAL) Hemogram (07/27/2017 12:53 AM EST) Analysis Performed At Patho logist Time Signature WBC 15.0 (H) 4.0 - 9.5 [facility] x[facility](3[facility] LABORATORY RBC 3.59 (L) 4.58 - [facility] 5.54 [facility] x10(6)/[facility] LABORATORY Hemoglobin 10.3 (L) 13.7 - [facility] 16.5 gm/dL [facility] LABORATORY Hematocrit 32.6 (L) 40.5 - [facility] 48.5 % [facility] LABORATORY MCV 90.8 82.9 - [facility] 93.1 [facility] LABORATORY MCH 28.7 27.5 - [facility] RYAN 32.1 pg [facility] LABORATORY MCHC 31.6 (L) 32.0 - [facility] 35.7 gm/dL [facility] LABORATORY Platelets 322 145 - 357 [facility] x10(3)/[facility] RDWSD 48.7 (H) 36.0 - [facility] RYAN 45.0 [facility] LABORATORY RDWCV 14.7 (H) 11.4 - [facility] RYAN 13.8 % [facility] LABORATORY MPV 8.9 7.6 - 12.9 [facility] LABORATORY nRBC % Auto 0.0 % [facility] LABORATORY nRBC Abs Auto 0.000 0.000 - [facility] RYAN 0.000 [facility] x10(3)/[facility] LABORATORY Specimen Anatomical Collection Method Collection Time Receive d Time (Source) Location / / Volume Laterality Blood specimen 07/27/2017 12:53 8 1:00 (specimen) AM EST AM EST Resulting Agency Comment Spec In Lab Angela Swenson MD HEMATOLOGY ORDERABLES Performing Organization Address City/State/[place] [address] Antibody screen (07/27/2017 12:53 AM EST) Patholo gist Method Time Signature Ab Screen Negative [facility] LABORATORY Expires at 07/30/2017 KATALINA ZHAORYAN [id number] on: [facility] LABORATORY Specimen Anatomical Collection Method Collection Time Receive d Time (Source) Location / / Volume Laterality Blood specimen 07/27/2017 12:53 8 (specimen) AM EST 12:58 AM EST Resulting Agency Comment Spec In Lab Angela Swenson MD BLOOD BANK ORDERABLES Performing Organization Address City/[facility]/[place] [address] ABO/Rh Typing (07/27/2017 12:53 [...] Performing Organization Address City/[facility] [place] [address] (ABNORMAL) Prothrombin Time (07/27/2017 [...] City/State/[place] [address] (ABNORMAL) Basic Metabolic Panel (non-fasting) (07/27/2017 12:53 AM EST) athologist Signature Glucose Lvl 95 65 - 199 [facility] mg/dL [facility] Comment: Diabetes: >=200 mg/dL plus symp toms BUN 37 (H) 10 - 20 mg/dL [facility] LABORATORY Creatinine 1.49 0.80 - 1.50 mg/dL [facility] LABORATORY Sodium 137 135 - 145 mmol/L [facility] LABORATORY Potassium 5.1 (H) 3.5 - 5.0 mmol/L [facility] [...] mg/dL [facility] LAB[facility] Estimated GFR 46 (L) >=60 [facility] LABORATORY Comment: The reported eGFR should be multiplied b y 1.2 for patients. The MDRD is not an appropriate measure o f renal function for patients with body mass extremes or in patients with acute kidney failure. 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
Routine documented in this encounter Care Teams Offal Trimmer Relationship Specialty Start Date End Date Lovely Vicente MD PCP - General 04/16/15 [facility] [address] [facility] [address] [place] [address] documented as of this encounter
--- OUTSIDE RECORDS SUMMARY | 2022-05-01 08:58 | XMS_ITS | Encounter Summary ---
:1945 Author Organization [place] [address] Care Team Providers Name Role Phone Lovely Vicente MD Primary Care Provider Encounter Details Date Type Department Care Team Description 07/24/2017 Telephone Vascular Surgery Melba Bob [facility] [place] [address] [facility] [phone] VASCULAR SURGERY [place], [place] [address] (Wo rk) Social History Tobacco [...] [facility] [address] [place] [address] (Wo rk) 05/28/2022 Laboratory Appointment Lab 05/28/2022 Office Visit Cardiology Zulma Dolan MD [facility] [place] [address] Liz Poole PA [facility] [place] [address] 06/10/2022 Office Visit Dermatology Laura Scherer MD [facility] [address] [place], [place] [address] (Wo rk) documented as of this encounter Visit Diagnoses Not on filedocumented in this encounter Care Teams Sulfide Head Operator Relationship Specialty Start Date End Date Lovely Vicente MD PCP - General 04/16/[address] [place] [address] documented as of this encounter
--- OUTSIDE RECORDS SUMMARY | 2022-05-01 08:58 | XMS_ITS | Encounter Summary ---
:1945 [place] [address] Care Team Providers Name Role Phone Lovely Vicente MD Primary Care Provider Encounter Details Date Type Department Care Team Description 08/03/2017 Hospital Encounter Radiology Library at [place], Tommy Mijares [facility] [place] [address] VASCULAR SURGERY [phone] [place], [place] [address] (Wo rk) Social History [...] Dolan MD [facility] [address] [place] [address] (Wo rk) 05/28/2022 Laboratory Appointment Lab 05/28/2022 Office Visit Cardiology Zulma Dolan MD [facility] [place] [address] Liz Poole PA [facility] [place] [address] 06/10/2022 Office Visit Dermatology Laura Scherer MD [facility] [address] [place], [place] [address] (Wo rk) documented as [...] Received Time / Laterality Volume Narrative [facility] - 08/03/2017 6:01 PM EST This exam is for storage only and is aut o-finalizing. Arik Clement MD G FILM LIBRARY ORDERABLES Performing Organization Address City/State/ZIP Code Phon e Number [place], [place] documented in this encounter Visit Diagnoses Diagnosis Pain Generalized pain documented in this encounter Care Teams Contamination Consultant Relationship Specialty Start Date End Date Lovely Vicente MD PCP - General 04/16/[address] [place] [address] documented as of this encounter
--- OUTSIDE RECORDS SUMMARY | 2022-05-01 08:58 | XMS_ITS | Encounter Summary ---
:1945 Author Organization [place] [address] Care Team Providers Name Role Phone Lovely Vicente MD Primary Care Provider Encounter Details Date Type Department Care Team Description 08/03/2017 Telephone Pain Management at [place], [place] [address] Social History Tobacco Use Types Packs/Day [...] Management Center Preauthorization Request Patient: Don Fatima [id number] Fax received from [facility] requesting we obtain prior authorization for Lidocaine Patches prescribed by Barbra Soares APRN. RX insurance plan: [facility] [employer] insurance telephone: [phone] Patient ?? Diagnosis: right foot pain secondary to PVD and ischemia ?? Previous medications attempted: Tylenol, Tramadol, Dilaudid Authorization/Reference number: [id number], PBP Code 801 _x_ denied, provider and patient informed _x_ appeal initiated by provider, patient informed [place] Rodrigez, RN documented in this encounter Plan of Treatment Upcoming Encounters Date Type Specialty Care Team Description 05/28/2022 Appointment Cardiology Zulma Dolan MD [facility] [place], [place] [address] (Wo rk) 05/28/2022 Laboratory Appointment Lab 05/28/2022 Office Visit Cardiology Zulma Dolan MD [facility] [place] [address] Liz Poole PA [facility] [place] [address] 06/10/2022 Office Visit Dermatology Laura Scherer MD [facility] [address] [place], [place] [address] (Wo rk) documented as of this encounter Visit Diagnoses Not on filedocumented in this encounter Care Teams Balloon Maker Relationship Specialty Start Date End Date Lovely Vicente MD PCP - General 04/16/[address] [place] [address] documented as of this encounter
--- OUTSIDE RECORDS SUMMARY | 2022-05-01 08:58 | XMS_ITS | Encounter Summary ---
:1945 Author Organization [facility] [place] [address] Care Team Providers Name Role Phone Lovely Vicente MD Primary Care Provider Reason for Visit Reason Onset Date Comments Other 07/22/2017 lovenox bridge Encounter Details Date Type Department Care Team Description 07/22/2017 Telephone Cardiology at [facility] Cadena RN Other (lovenox bridge) [place] [address] Social History Tobacco Use Types Packs/Day [...] 4:49 PM EST VAMSI Del Castillo, at [facility], called earlier today with a question re: lovenox bridge for this patient who was recently [place] [facility] r/t a blood clot. Discharge note faxed to [facility] (fax# [phone], Ph#: [phone]) which contains instructions r/t lovenox bridge as follows: Anticoagulation: on lovenox bridge to therapeutic coumadin for AFib. Goal INR 2-3. At discharge INR=1.5. The lovenox injections can stop when INR >2, coumadin will continue indefinitely. documented in this encounter Plan of Treatment Upcoming Encounters Date Type Specialty Care Team Description 05/28/2022 Appointment Cardiology Zulma Dolan MD [facility] [place], [place] [address] (Wo rk) 05/28/2022 Laboratory Appointment Lab 05/28/2022 Office Visit Cardiology Zulma Dolan MD [facility] [place] [address] Liz Poole PA [facility] [place] [address] 06/10/2022 Office Visit Dermatology Laura Scherer MD [facility] DR [address] [place], [place] [address] (Wo rk) documented as of this encounter Visit Diagnoses Not on filedocumented in this encounter Care Teams Chauffeur Relationship Specialty Start Date End Date Lovely Vicente MD PCP - General 04/16/15 [facility] [address] [place] [address] documented as of this encounter
--- OUTSIDE RECORDS SUMMARY | 2022-05-01 08:58 | XMS_ITS | Encounter Summary ---
:1945 Author Organization [facility] [address] Care Team Providers Name Role Phone Lovely Vicente MD Primary Care Provider Reason for Visit Auth/Cert Specialty Diagnoses / Procedures Referred By Contact Refer red To Contact Diagnoses Critical lower limb ischemia CELLULITIS RT FOOT Procedures EMERGENCY Referral ID Status Reason Start Date Expiration Date Visits Requ ested Visits Authorized [id number] 1 1 Encounter Details Date Type Department Care Team Description 08/04/2017 Laboratory Appointment Lab 3L [facility] [place] [address] Social History Tobacco Use Types Packs/Day [...] MD [facility] [address] [place] [address] (Wo rk) 05/28/2022 Laboratory Appointment Lab 05/28/2022 Office Visit Cardiology Zulma Dolan MD [facility] [place] [address] Liz Poole PA [facility] [place] [address] 06/10/2022 Office Visit Dermatology Laura Scherer MD [facility] [address] [place], [place] [address] (Wo rk) documented as of this encounter Visit Diagnoses Not on filedocumented in this encounter Care Teams Landscape Crew Member Relationship Specialty Start Date End Date Lovely Vicente MD PCP - General 04/16/15 [facility] [address] [place], [place] [address] documented as of this encounter
--- OUTSIDE RECORDS SUMMARY | 2022-05-01 08:58 | XMS_ITS | Encounter Summary ---
:1945 [place] [address] Care Team Providers Name Role Phone Lovely Vicente MD Primary Care Provider Reason for Visit Reason Comments Hospital Transfer cold foot post CABG Auth/Cert Specialty Diagnoses / Procedures Referred By Contact Refer red To Contact Diagnoses Critical lower limb ischemia Procedures NAYE IPI Referral ID Status Reason Start Date Expiration Date Visits Requ ested Visits Authorized [id number] 1 1 Encounter Details Date Type Department Care Team Description 07/20/2017 Hospital Encounter 4 Herminia Ibarra MD [facility] [place] [address] Critical lower limb [facility] Arik Clement MD [facility] [place] [address] [place] [address] Social History Tobacco Use Types Packs/Day Years [...] home. Important Studies and Lab Data: Labs: [facility] Results Component Value Date INR 1.5 [...] For any problems or questions please call [phone] ZELDA Smith, bed control specialist Nurse Clinician For issues on weeknights after 5pm and weekends please call [phone] and ask for the Vascular Fellow senior solutions workflow consultant. General Instructions None Future Appointments and Orders Future Appointments Provider Department Dept Phone 08/04/2017 1:00 PM Daniele Mooney [place] [facility] [place] [phone] 08/04/2017 2:15 PM Arik Clement MD [facility] Surgery [facility] [place] [phone] 09/07/2017 3:00 PM MAYRA CHACON Lab [facility] [phone] 09/07/2017 4:00 PM Luz Prescott MD Endocrinology at [place] [phone] Future Orders Complete By Expires Arterial Duplex Leg, Unil [VAS32 Custom] 07/27/2017 (Approximate) 01/26/2018 Process Instructions: There is no in-house vascular labor arbitrator available on weeknights (5pm-8am), weekends, or holidays. IF THIS IS A REQUEST FOR AN EMERGENT STUDY DURING THOSE HOURS, please have the senior provider responsible for the patient page the Vascular Surgery Fellow/Senior Resident senior solutions workflow consultant to discuss options. Scheduling Instructions: Questions: Indication for study/signs & symptoms: Right femoral PSA s/p cardiac cath Question to be answered: bloodflow to PSA Laterality: Right Is there a RIGHT LOWER EXTREMITY graft?: No Lower limb right segments: Common Femoral Is there a stent?: No At which location will this be performed?: [place] Referral to Home Health - at DISCHARGE [[id number] CPT(R)] As directed Process Instructions: Scheduling Instructions: Comments: DOCUMENTATION FOR VNA SERVICES (INCLUDING THOSE PATIENTS WITH MEDICARE COVERAGE REQUIRING HOME VNA SERVICES AND/OR HOSPICE SERVICES) PATIENT'S LOCATION: Gregory Fatima [address] [place] [address] [place] [phone] (home) Cell: Telephone Information: Press Washer's Name: self In discussion with the attending physician, it is certified that this patient is under their care and that they, or a Nurse Practitioner,Clinical Nurse specialist or Physician Preforming Machine Operator who is working directly with [...] [facility] ([facility] [place] [facility]-is in [place] PHONE: [phone] FAX: [phone] Start of care: 24- 48 hours FOR [...] patient'sPCP: Lovely Vicente MD [address] [facility] [place] / [place] [address] All VNA agencies which cover the area [...] For any problems or questions please call [phone] ZELDA Smith, bed control specialist Nurse Clinician For issues on weeknights after 5pm and weekends please call [phone] and ask for the Vascular Fellow senior solutions workflow consultant. documented in this encounter Medications at [...] RN - 07/20/2017 2:53 PM EST The patient/signs sales representative has been provided a list of Home Health Agencies/DME vendors which serve their preferred geographic area. A letter describing our affiliations was reviewed with them and theywere educated about their right to choose where referrals are placed. Patient requests referral to [facility] [email or web address]. PHONE: [phone] FAX: [phone]. Expected date of discharge: 07/20/2017 . Referral routed to the Planning Engineer for matching with agency/vendor and to provide any required information. Naty Pulliam RN - 07/20/2017 11:37 AM EST The patient/signs sales representative has been provided a list of Home Health Agencies/DME vendors which serve their preferred geographic area. A letter describing our affiliations was reviewed with them and theywere educated about their right to choose where referrals are placed. Patient requests referral to [facility] ([facility] [place] [facility]- is in [facility] [place] PHONE: [phone] FAX: [phone]. Expected date of discharge: 07/20/2017 . Referral routed to the Planning Engineer for matching with agency/vendor and to provide any required information. Katina Pulliam RNdirector of quality control Janneth Lee MD - 07/20/2017 7:29 AM [...] at [facility] MAIN OR Functional Status/Social Hx: Social [...] -ISS -pain control Discussed with Vascular Fellow senior solutions workflow consultant. Chris Valadez MD PGY2 Pager [phone] documented in this encounter ED Notes Annita Reaves MD - 07/20/2017 3:15 PM EST Emergency Department Gregory Fatima is a 72 y.o. male who [place] [facility] with arterial thrombosis. History of Present Illness [...] the Past 30 Days: [facility] 07/05/17 Anticipated Length Of Stay (If known): [...] Health/Prescription Coverage: Primary Insurance: MEDICARE Secondary Insurance: [employer] [facility] Prescription Coverage: See above Preferred Pharmacy: [facility] Other: N/A Primary Care Provider: Lovely Vicente MD [phone] Patient/Caregiver Goals of Treatment: Patient plans to return home when medically ready Potential Needs for Transition of Care: Rehab/SNF: N/A Home Health: Yasmani [facility] ([facility] [place] [facility]-is in [place]) PHONE: [phone] FAX: [phone] DME: N/A Dialysis: N/A Community Resources: N/A Transportation: Patient family will transport Other: N/A Anticipated Barriers to Discharge/Special Considerations: None Plan: Patient plans to return home with home health services when medically ready A member of the Care Management team will continue to monitor progress, follow for continuity of care and assist with transition of care planning. Naty Pulliam, RN Pager: [phone] ED Triage - Rayna Weir RN - 07/20/2017 12:28 AM EST Pt transferred from [place] for blue right foot and painful toes. [...] Dolan MD [facility] [address] [place], [place] [address] (Wo rk) 05/28/2022 Laboratory Appointment Lab 05/28/2022 Office Visit Cardiology Zulma Dolan MD [facility] [place] [address] Liz Poole PA [facility] [place] [address] 06/10/2022 Office Visit Dermatology Laura Scherer MD [facility] DR TEJA GR-DERMAT OGY [place], [place] [address] (Wo rk) documented as of this encounter Procedures Procedure Name Priority Date/Time Associated Comments Diagnosis COMMERCIAL LINES ACCOUNT ASSISTANT SCAN 09/02/2017 12:00 Res ults for this [...] TO LAB EST procedure are i n ([facility] the results section. APTT STAT 07/20/2017 2:25 AM Results f or this EST procedure are i n the results section. PROTHROMBIN TIME STAT 07/20/2017 2:25 AM Resul ts for this EST procedure are i n the results section. BASIC METABOLIC PANEL STAT 07/20/2017 2:25 AM Results for this (NON-FASTING) EST procedure are in the results section. documented in this encounter Results SCAN DOC: COMMERCIAL LINES ACCOUNT ASSISTANT (09/02/2017 12:00 AM EST) Narrative 09/02/2017 12:00 AM EST This result has an attachment that is no t available. Ordered by an unspecified provider. Scanning Provider MEDIA MGR SCAN EXT ORDR/RSLT POCT Glucose (07/20/2017 12:04 PM EST) P athologist Signature POC Glucose 189 65 - 199 [facility] mg/dL [facility] Comment: Supplemental ranges: <140 mg/dL before meals <180 mg/dL all other times of the day Specimen Anatomical Collection Method Collection Time Receive d Time (Source) Location / / Volume Laterality Blood specimen 07/20/2017 12:04 7 (specimen) PM EST 12:04 PM EST Arik Celment MD POINT OF CARE TEST ORDERABLE S Performing Organization Address City/State/[place] [address] (ABNORMAL) Differential, Automated (07/20/2017 10:34 AM EST) Patholo gist Method Time Signature Neutrophils % 84.3 % [facility] Neutr Abs (ANC) 14.27 (H) 1.70 - [facility] 6.10 [facility] x10(3)/[facility] LABORATORY Lymphocytes % 5.6 % [facility] Lymphocytes Abs 1.0 0.9 - 3.2 [facility] x10(3)/[facility] LABORATORY Monocytes % 6.1 % [facility] Monocyte Abs 1.0 (H) 0.3 - 0.9 [facility] x10(3)/[facility] LABORATORY Eosinophils % 2.4 % [facility] Eosinophils Abs 0.4 0.0 - 0.4 [facility] x10(3)/[facility] LABORATORY Basophils % 0.5 % [facility] Basophils Abs 0.1 0.0 - 0.1 [facility] x10(3)/[facility] LABORATORY Immature Gran % 1.10 % ST. [...] Gran Abs 0.19 (H) 0.00 - 0.04 x10(3)/[facility] LABORATORY Specimen Anatomical Collection Method Collection Time Receive d Time (Source) Location / / Volume Laterality Blood specimen 07/20/2017 10:34 7 (specimen) AM EST 10:39 AM EST Resulting Agency Comment Spec In Lab Arik Clement MD HEMATOLOGY ORDERABLES Performing Organization Address City/State/[place] [address] (ABNORMAL) Hemogram (07/20/2017 10:34 AM EST) Analysis Performed At Patho logist Time Signature WBC 17.0 (H) 4.0 - 9.5 [facility] x[facility](3[facility] LABORATORY RBC 3.70 (L) 4.58 - [facility] 5.54 [facility] x10(6)/[facility] LABORATORY Hemoglobin 10.8 (L) 13.7 - [facility] 16.5 gm/dL [facility] Hematocrit 33.4 (L) 40.5 - [facility] 48.5 % [facility] MCV 90.3 82.9 - [facility] 93.1 [facility] LABORATORY MCH 29.2 27.5 - [facility] R[facility]AN 32.1 pg [facility] MCHC 32.3 32.0 - [facility] R[facility]AN 35.7 gm/dL [facility] Platelets 211 145 - 357 [facility] x10(3)/[facility] LABORATORY RDWSD 49.1 (H) 36.0 - [facility] RYAN 45.0 [facility] LABORATORY RDWCV 14.7 (H) 11.4 - [facility] RYAN 13.8 % [facility] MPV 9.2 7.6 - 12.9 [facility] nRBC % Auto 0.0 % [facility] nRBC Abs Auto 0.000 0.000 - [place]AN 0.000 [facility] x10(3)/[facility] LABORATORY Specimen Anatomical Collection Method Collection Time Receive d Time (Source) Location / / Volume Laterality Blood specimen 07/20/2017 10:34 7 (specimen) AM EST 10:39 AM EST Resulting Agency Comment Spec In Lab Arik Clement MD HEMATOLOGY ORDERABLES Performing Organization Address City/State/[place] [address] (ABNORMAL) APTT (07/20/2017 10:34 [...] Clement MD HEMATOLOGY ORDERABLES Performing Organization Address City/[facility]/[place] [address] POCT Glucose (07/20/2017 7:41 AM EST) athologist Signature POC Glucose 174 65 - 199 [facility] mg/dL [facility] Comment: Supplemental ranges: <140 mg/dL before meals <180 mg/dL all other times of the day Specimen Anatomical Collection Method Collection Time Receive d Time (Source) Location / / Volume Laterality Blood specimen 07/20/2017 7:41 AM 017 7:41 (specimen) EST AM EST Arik Clement MD POINT OF CARE TEST ORDERABLE S Performing Organization Address City/[facility]/ZIP Code Phon e Number [address] JULIAN, legs, multiple levels (07/20/2017 7:33 AM EST) Component Value Ref Test Analysis Performed At Patholo gist Range Method Time Signature VB Text Department: Vascular Surgery Lab VASCUBASE Report Patient: [id number] (GREGORY FATIMA) CPT: 27636 ICD10: I75.021;I99.8 Referring Physician: ARIK CLEMENT ?? [...] Department: Vascular Surgery Lab VASCUBASE Report Patient: [id number] (GREGORY FATIMA) CPT: 78771 ICD10: I97.610;I99.8 Referring Physician: ARIK CLEMENT ?? [...] Glucose 199 65 - 199 [facility] mg/dL [facility] Comment: Supplemental ranges: <140 mg/dL before meals <180 mg/dL all other times of the day Specimen Anatomical Collection Method Collection Time Receive d Time (Source) Location / / Volume Laterality Blood specimen 07/20/2017 3:41 AM 017 3:41 (specimen) EST AM EST Arik Clement MD POINT OF CARE TEST ORDERABLE S Performing Organization Address City/[facility]/ZIP [facility] [place] [address] Lactate, whole blood, send to lab (Leb/CGP) (07/20/2017 2:25 AM EST) athologist Signature Lactate WB 2.0 0.5 - 2.2 [facility] mmol/L [facility] Specimen Anatomical Collection Method Collection Time Receive d Time (Source) Location / / Volume Laterality Blood specimen Venous Draw / 07/20/2017 2:25 AM 2016 2:37 (specimen) Unknown EST AM EST Resulting Agency Comment Spec In Lab Zulma Samuel MD CHEMISTRY ORDERABLES Performing Organization Address City/[facility] Code Phon e Number [address] (ABNORMAL) APTT (07/20/2017 2:25 [...] Reaves MD HEMATOLOGY ORDERABLES Performing Organization Address City/[facility]/[place] [address] (ABNORMAL) Prothrombin Time (07/20/2017 [...] Organization Address City/State/[place] [address] (ABNORMAL) Basic Metabolic Panel (non-fasting) (07/20/2017 2:25 AM EST) P athologist Signature Glucose Lvl 187 65 - 199 [facility] mg/dL [facility] Comment: Diabetes: >=200 mg/dL plus symp toms BUN 35 (H) 10 - 20 mg/dL [facility] Creatinine 1.51 (H) 0.80 - 1.50 mg/dL [facility] LAB[facility] Sodium 134 (L) 135 - 145 mmol/L [facility] LABOR[facility]ORY Potassium Not Perf 3.5 - 5.0 mmol/L [facility] Comment: Specimen hemolyzed. Called by: [facility], Read back by: Chitra Orantes, Date/Time:07/20/17 03:05. [...] HOSPITAL LABORATORY Estimated GFR 46 (L) >=60 [facility] Comment: The reported eGFR should be multiplied b y 1.2 for patients. The MDRD is not an appropriate measure o f renal function for patients with body mass extremes or in patients with acute kidney failure. http://Gizmo.com/DHnkdep http://Gizmo.com/DHMCnkf Specimen Anatomical Collection Method Collection Time Receive d Time (Source) Location / / Volume Laterality Blood specimen 07/20/2017 2:25 AM 017 2:33 (specimen) EST AM EST Resulting Agency Comment Spec In Lab Annita Reaves MD CHEMISTRY ORDERABLES Performing Organization Address City/State/ZIP Code Phon e Number [place] [id number] documented in this encounter [...] Group 2) 0-8,000 Units, Intravenous, BOLUS PER [facility] PROTOCOL, Starting Wed07/20/17 at 0424, [...]
Routine documented in this encounter Care Teams Stitcher Special Machine Relationship Specialty Start Date End Date Lovely Vicente MD PCP - General 04/16/[address] [place] [address] documented as of this encounter
--- OUTSIDE RECORDS SUMMARY | 2022-05-01 08:58 | XMS_ITS | Encounter Summary ---
:1945 Author Organization [facility] [place] [address] Care Team Providers Name Role Phone Lovely Vicente MD Primary Care Provider Reason for Visit Auth/Cert Specialty Diagnoses / Procedures Referred By Contact Refer red To Contact Diagnoses Critical lower limb ischemia CELLULITIS RT FOOT Procedures EMERGENCY Referral ID Status Reason Start Date Expiration Date Visits Requ ested Visits Authorized [id number] 1 1 Encounter Details Date Type Department Care Team Description 08/04/2017 Hospital Encounter XRay at [facility] Dnaette Maxwell Incisional pain [address] [place] [address] Dr Gomes, NURSING SCHEDULER [facility] [phone] CARDIOLOGY [place], [place] [address] Social History Tobacco Use [...] MD [facility] [place], [place] [address] (Wo rk) 05/28/2022 Laboratory Appointment Lab 05/28/2022 Office Visit Cardiology Zulma Dolan MD [facility] [place] [address] Liz Poole PA [facility] [address] 06/10/2022 Office Visit Dermatology Laura Scherer MD [facility] DR TEJA GR-DERMAT OLOGY [place], [place] [address] (Wo rk) documented [...] original. EXAMINATION: XR CHEST PA AND LATERAL (Airseed) CLINICAL HISTORY: Checking sternal stabi lity/assess wires [...] Daniele gutiérrez 08/04/2017 4:13 PM Danette Maxwell NURSING SCHEDULER IMG DX ORDERABLES documented in this encounter Visit Diagnoses Diagnosis Incisional pain Disturbance of skin sensation documented in this encounter Care Teams Break Up Worker Relationship Specialty Start Date End Date Lovely Vicente MD PCP - General 04/16/[address] [place] [address] documented as of this encounter
--- OUTSIDE RECORDS SUMMARY | 2022-05-01 08:58 | XMS_ITS | Encounter Summary ---
:1945 Author Organization [facility] [place] [address] Care Team Providers Name Role Phone Lovely Vicente MD Primary Care Provider Reason for Visit Auth/Cert Specialty Diagnoses / Procedures Referred By Contact Refer red To Contact Diagnoses Critical lower limb ischemia CELLULITIS RT FOOT Procedures EMERGENCY Referral ID Status Reason Start Date Expiration Date Visits Requ ested Visits Authorized [id number] 1 1 Encounter Details Date Type Department Care Team Description 08/04[facility]2017 [facility] [place] thrombosis of [facility] [place] [phone] Social History Tobacco Use Types Packs/Day Years [...] gauge x 4 times daily. 3/16 Needle aspirin 81 mg EC Take 81 [...] Cardiology Zulma Dolan MD [facility] [place], [place] [address] (Wo rk) 05/28/2022 Laboratory Appointment Lab 05/28/2022 Office Visit Cardiology Zulma Dolan MD [facility] [place] [address] Liz Poole PA [facility] [place] [address] 06/10/2022 Office Visit Dermatology Laura Scherer MD [facility] DR TEJA GR-DERMAT [place]LOGY [place], [place] [address] (Wo rk) documented as of [...] [facility] Range Method Time Signature VB Text Department: Vascular Surgery Lab VASCUBASE Report Patient: [id number] (GREGORY HOANG) CPT: 24550 ICD10: I82.541 Referring Physician: TAMIKO HUTSON ?? [...] extremity documented in this encounter Care Teams Process Safety Specialist Relationship Specialty Start Date End Date Lovely Vicente MD PCP - General 04/16/[address] [place] [address] documented as of this encounter
--- OUTSIDE RECORDS SUMMARY | 2022-05-01 08:58 | XMS_ITS | Encounter Summary ---
:1945 Author Organization [facility] Address [facility] [place] [address] Care Team Providers Name Role Phone Lovely Vicente MD Primary Care Provider Encounter Details Date Type Department Care Team Description 07/29/2017 Transcribe Orders Laboratory Lovely Vicente, Coronary artery rupture; [facility] Medical Ischemic cardiomyopathy; [facility] [address] Atherosclerosis of belkofski co ronary artery, angina presence unspecified, unspecified whether belkofski or transplanted heart; [place], [place] [address] Essential hypertension, malignant; [id number] [place], [place] 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, unspecified chcf insulin use status [phone] [id number] Social History Tobacco Use Types Packs/Day Years [...] MD [facility] [place] [address] (Wo rk) 05/28/2022 Laboratory Appointment Lab 05/28/2022 Office Visit Cardiology Zulma Dolan MD [facility] [place] [address] Liz Poole PA [facility] [place] [address] 06/10/2022 Office Visit Dermatology Laura Scherer MD [facility] ER [address] [place], [place] [address] (Wo rk) Scheduled Orders [...] Signature Uric Acid 7.1 3.5 - 8.5 [facility] mg/dL [facility] LABORATORY Specimen Anatomical Collection Method Collection Time Receive d Time (Source) Location / / Volume Laterality Blood specimen 08/04/2017 12:55 8 1:01 (specimen) PM EST PM EST Resulting Agency Comment Spec In Lab Lovely Vicente MD CHEMISTRY ORDERABLES Performing Organization Address City/State/[place] [address] (ABNORMAL) Hemogram (08/04/2017 12:55 PM EST) Analysis Performed At Patho logist Time Signature WBC 15.8 (H) 4.0 - 9.5 [facility] x10(3)/[facility] LABORATORY RBC 3.48 (L) 4.58 - [facility] 5.54 [facility] x10(6)/[facility] LABORATORY Hemoglobin 9.9 (L) 13.7 - [facility] 16.5 gm/dL [facility] Hematocrit 31.4 (L) 40.5 - KATALINA DAVIS 48.5 % [facility]ORATORY MCV 90.2 82.9 - [facility] 93.1 [facility] LABORATORY MCH 28.4 27.5 - [place] RYAN 32.1 pg [facility] LABORATORY MCHC 31.5 (L) 32.0 - [place]ALINA ZHAORYAN 35.7 gm/dL [facility] LABORATORY Platelets 310 145 - 357 [facility] x10(3)/[facility] LABORATORY RDWSD 51.8 (H) 36.0 - [place] RYAN 45.0 [facility] LABORATORY RDWCV 15.8 (H) 11.4 - [facility] 13.8 % [facility] LABORATORY MPV 8.9 7.6 - 12.9 [facility] LABORATORY nRBC % Auto 0.0 % [facility] LABORATORY nRBC Abs Auto 0.000 0.000 - [facility] 0.000 [facility] x10(3)/[facility] LABORATORY Specimen Anatomical Collection Method Collection Time Receive d Time (Source) Location / / Volume Laterality Blood specimen 08/04/2017 12:55 8 1:01 (specimen) PM EST PM EST Resulting Agency Comment Spec In Lab Lovely Vicente MD HEMATOLOGY ORDERABLES Performing Organization Address City/State/ZIP Code Phon e Number [place] [id number] (ABNORMAL) Comprehensive metabolic panel (non-fasting) (08/04/2017 12:55 PM EST) P athologist Signature Glucose Lvl 208 (H) 65 - 199 [facility] mg/dL [facility] Comment: Diabetes: >=200 [...] CENTER LABORATORY Estimated GFR 43 (L) >=60 [facility] LABORATORY Comment: The reported eGFR should be multiplied b y 1.2 for patients. The MDRD is not an appropriate measure o f renal function for patients with body mass extremes or in patients with acute kidney failure. http://[employer]/DHnkdep http://[employer]/DHMCnkf Specimen Anatomical Collection Method Collection Time Receive d Time (Source) Location / / Volume Laterality Blood specimen 08/04/2017 12:55 8 1:01 (specimen) PM EST PM EST Resulting Agency Comment Spec In Lab Lovely Vicente MD CHEMISTRY ORDERABLES Performing Organization Address City/State/[place] [address] (ABNORMAL) Hemoglobin A1c (08/04/2017 [...] Avg Gluc See note mg/dL K[facility]ALINA DAVIS [facility] LABORATORY Comment: Estimated Average Glucose not [...] into estimated average glucose values. ??Diabetes Care 2008:31(8):4418-0876. Specimen Anatomical Collection Method Collection Time Receive d Time (Source) Location / / Volume Laterality Blood specimen 08/04/2017 12:55 8 1:01 (specimen) PM EST PM EST Resulting Agency Comment Spec In Lab Lovely Vicente MD CHEMISTRY ORDERABLES Performing Organization Address City/State/[place] [address] (ABNORMAL) Prothrombin Time (08/04/2017 [...] Organization Address City/State/[place] [address] documented in this encounter Visit Diagnoses Diagnosis Coronary artery rupture Acute myocardial infarction, unspecified site, episode of care unspecified Ischemic cardiomyopathy Other specified forms of chronic ischemi c heart disease Atherosclerosis of belkofski coronary arter y, angina presence unspecified, unspecified whether belkofski or transplanted heart Essential hypertension, malignant Diabetes mellitus due to underlying cond ition with diabetic nephropathy, unspecified chcf insulin use status documented in this encounter Care Teams Solvent Process Extractor Operator Relationship Specialty Start Date End Date Lovely Vicente MD PCP - General 04/16/[address] [place] [address] documented as of this encounter
--- OUTSIDE RECORDS SUMMARY | 2022-05-01 08:58 | XMS_ITS | Encounter Summary ---
:1945 Author Organization [facility] [place] [address] Care Team Providers Name Role Phone Lovely Vicente MD Primary Care Provider Encounter Details Date Type Department Care Team Description 07/29/2017 Transcribe Orders Laboratory Lovely Vicente MD [address] [address] [place] [address] [phone] (Wo rk) Social History Tobacco Use Types [...] [facility] er Dr [place] [address] (Wo rk) 05/28/2022 Laboratory Appointment Lab 05/28/2022 Office Visit Cardiology Zulma Dolan [place] [address] Liz Poole PA [facility] [place] [address] 06/10/2022 Office Visit Dermatology Laura Scherer MD [facility] ER DR [address] [place], [place] [address] (Wo rk) documented as of this encounter Visit Diagnoses Not on filedocumented in this encounter Care Teams Senior Media Planner Relationship Specialty Start Date End Date Lovely Vicente MD PCP - General 04/16/[address] [place] [address] documented as of this encounter
--- OUTSIDE RECORDS SUMMARY | 2022-05-01 08:58 | XMS_ITS | Encounter Summary ---
:1945 Author Organization [facility] [place] [address] Care Team Providers Name Role Phone Lovely Vicente MD Primary Care Provider Reason for Visit Auth/Cert Specialty Diagnoses / Procedures Referred By Contact Refer red To Contact Diagnoses Critical lower limb ischemia CELLULITIS RT FOOT Procedures EMERGENCY Referral ID Status Reason Start Date Expiration Date Visits Requ ested Visits Authorized [id number] 1 1 Encounter Details Date Type Department Care Team Description 08/04/2017 Office Visit Cardiology at [facility] Danette Maxwell Incisional pain; [facility] A, STRUCTURER Ischemic cardiomyopathy; [facility] ASCVD (arteriosclerotic card iovascular disease); [place], [place] Systolic heart failure, unspecified hear t failure chronicity [id number] CARDIOLOGY [phone] [place], [place] [address] Social History Tobacco Use Types [...] in this encounter Progress Notes Danette Maxwell, STRUCTURER - 08/04/2017 3:00 PM EST ID and [...] painful and swollen right foot right d/t AUDITING CLERK pseudoaneurysm with embolization to the right [...] Zulma Dolan MD [facility] [place] [address] (Wo rk) 05/28/2022 Laboratory Appointment Lab 05/28/2022 Office Visit Cardiology Zulma Dolan MD [facility] [place] [address] Liz Poole PA [facility] [place] [address] 06/10/2022 Office Visit Dermatology Laura Scherer MD [facility] DR [address] [place], [place] [address] [...] sensation documented in this encounter Care Teams Academic Support Specialist Relationship Specialty Start Date End Date Lovely Vicente MD PCP - General 04/16/[address] [place] [address] documented as of this encounter
--- OUTSIDE RECORDS SUMMARY | 2022-05-01 08:58 | XMS_ITS | Encounter Summary ---
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 [...] SETUP performed by Manny Mcknight MD at [facility] MAIN OR ??? PRO CABG, ARTERIAL, SINGLE N/A 07/07/2017 @CABG, USING ARTERIAL GRAFT;SINGLE ARTERIAL GRAFT (WRVU 33.75) performed by Yuan Retana MD at [facility] MAIN OR ??? PRO CABG, ARTERY-VEIN, TWO N/A 07/07/2017 @CABG, TWO VENOUS GRAFTS & ARTERIAL GRAFT (WRVU 7.93) performed by Yuan Retana MD at [facility] MAIN OR ??? PRO COLONOSCOPY, REMFlash MOCK, SNARE 01/16/2014 COLONOSCOPY, POLYPECTOMY, REMOVAL LESION BY SNARE performed by Nohemi Jaimes MD at [facility] ENDOSCOPY ??? PRO ENDOSCOPY W/VIDEO-ASST VEIN HARVEST, CABG Right 07/07/2017 ENDOSCOPIC HARVEST VEIN(S) FOR CABG (WRVU 0.31) performed by Yuan Retana MD at [facility] MAIN OR ??? 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 Hank Zhang Vascular Surgery, PGY2 Pager #[phone] Associated attestation - Arik Clement MD - [...] Cardiology Zulma Dolan MD [facility] [place], [place] [address] (Wo rk) 05/28/2022 Laboratory Appointment Lab 05/28/2022 Office Visit Cardiology Zulma Dolan MD [facility] [place] [address] Liz Poole PA [facility] [place] [address] 06/10/2022 Office Visit Dermatology Laura Scherer MD [facility] DR [address] [place], [place] [address] (Wo rk) documented [...] Department: Vascular Surgery Lab VASCUBASE Report Patient: [id number] (GREGORY FATIMA) CPT: 34915 ICD10: I82.541 Referring Physician: TAMIKO JIMÉNEZ ?? [...] 128 65 - 199 [facility] mg/dL [facility] Comment: Supplemental ranges: <140 mg/dL before meals <180 mg/dL all other times of the day Specimen Anatomical Collection Method Collection Time Receive d Time (Source) Location / / Volume Laterality Blood specimen 07/29/2017 2:28 PM 018 2:28 (specimen) EST PM EST Tamiko Jiménez MD POINT OF CARE TEST ORDERABLE S Performing Organization Address City/State/ZIP Code Phon e Number [address] (ABNORMAL) D-Dimer, Quantitative (07/29/2017 2:15 PM EST) [facility] Thumbs Up Method Time Signature D-Dimer, Quant 1,699 (H) 0 - 500 [facility] FEU ng/ml [facility] Comment: The D-Dimer assay is [...] Organization Address City/State/[place] [address] (ABNORMAL) Differential, Automated (07/29/2017 2:15 PM EST) [facility] Thumbs Up Method Time Signature Neutrophils % 82.5 % [facility] LABORATORY Neutr Abs (ANC) 10.21 (H) 1.70 - [facility] 6.10 [facility] x10(3)/[facility] L LABORATORY Lymphocytes % 7.1 % [facility] LABORATORY Lymphocytes Abs 0.9 0.9 - 3.2 [facility] x10(3)/[facility] LABORATORY Monocytes % 6.5 % [facility] LABORATORY Monocyte Abs 0.8 0.3 - 0.9 [facility] x10(3)/[facility] LABORATORY Eosinophils % 2.7 % [facility] LABORATORY Eosinophils Abs 0.3 0.0 - 0.4 [facility] x10(3)/[facility] LABORATORY Basophils % 0.6 % [facility] LABORATORY Basophils Abs 0.1 0.0 - 0.1 [facility] x10(3)/[facility] [...] Address City/State/[place] [address] (ABNORMAL) Hemogram (07/29/2017 2:15 PM EST) Analysis Performed At Patho logist Time Signature WBC 12.4 (H) 4.0 - 9.5 [facility] x10(3)/[facility] LABORATORY RBC 4.17 (L) 4.58 - [facility] 5.54 [facility] x10(6)/[facility] LABORATORY Hemoglobin 12.1 (L) 13.7 - [facility] 16.5 gm/dL [facility] Hematocrit 38.1 (L) 40.5 - [facility] 48.5 % [facility] MCV 91.4 82.9 [facility] 93.1 [facility] LABORATORY MCH 29.0 27.5 - [facility] 32.1 pg [facility] MCHC 31.8 (L) 32.0 - [facility] RYAN 35.7 gm/dL [facility] Platelets 204 145 - 357 [facility] x10(3)/[facility] LABORATORY RDWSD 50.5 (H) 36.0 [facility] 45.0 [facility] LABORATORY RDWCV 15.3 (H) 11.4 - [facility] RYAN 13.8 % [facility] MPV 9.4 7.6 - 12.9 [facility] LABORATORY nRBC % Auto 0.0 % [facility]ORATORY nRBC Abs Auto 0.000 0.000 - [facility] 0.000 [facility] x10(3)/[facility] LABORATORY Specimen Anatomical Collection Method Collection Time Receive d Time (Source) Location / / Volume Laterality Blood specimen 07/29/2017 2:15 PM 018 2:36 (specimen) EST PM EST Resulting Agency Comment Spec In Lab Tamiko Jiménez MD HEMATOLOGY ORDERABLES Performing Organization Address City/State/[place] [address] (ABNORMAL) Prothrombin Time (07/29/2017 [...] City/State/ZIP Code Phon e Number [place] [id number] Arterial Duplex Leg, Unil (07/29/2017 11:50 AM EST) Component Value Ref Test Analysis Performed At [facility] Range Method Time Signature VB Text Department: Vascular Surgery Lab VASCUBASE Report Patient: [id number] (GREGORY FATIMA) CPT: 10407 ICD10: Z09;I97.610 Referring Physician: TAMIKO JIMÉNEZ ?? [...] Department: Vascular Surgery Lab VASCUBASE Report Patient: [id number] (GREGORY FATIMA) CPT: 44597 ICD10: I82.441 Referring Physician: TAMIKO JIMÉNEZ ?? [...] he calf. Notification: Marquis Pathak MD (pager #[phone]) was notif ied of the preliminary findings. [...] STAT documented in this encounter Care Teams Multi Purpose Machine Operator Relationship Specialty Start Date End Date Lovely Vicente MD PCP - General 04/16/[address] [place] [address] [address] [place] [address] documented as of this encounter
--- OUTSIDE RECORDS SUMMARY | 2022-05-01 08:58 | XMS_ITS | Encounter Summary ---
:1945 Author Organization [facility] Address [facility] [place] [address] Care Team Providers Name Role Phone Lovely Vicente MD Primary Care Provider Reason for Visit Auth/Cert Specialty Diagnoses / Procedures Referred By Contact Refer red To Contact Diagnoses Critical lower limb ischemia CELLULITIS RT FOOT Procedures EMERGENCY Referral ID Status Reason Start Date Expiration Date Visits Requ ested Visits Authorized [id number] 1 1 Encounter Details Date Type Department Care Team Description 08/04/2017 Laboratory Lab 3L Barbara Cardiomyopathy, unspecified type; Appointment [facility] Systolic congestive heart failure, unspecified congestive heart failure chronicity; Hospital Coronary artery rupture; [facility] Ischemic cardiomyopathy; Drive Atherosclerosis of galena co ronary artery, angina presence unspecified, unspecified whether galena or transplanted heart; [place], [place] Essential hyper tension, malignant; [id number] 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, unspecified exterminator helper insulin use status [phone] Social History Tobacco Use Types Packs/Day Years [...] Cardiology Zulma Dolan MD [facility] [address] [place] [address] (Wo rk) 05/28/2022 Laboratory Appointment Lab 05/28/2022 Office Visit Cardiology Zulma Dolan MD [facility] [place] [address] Liz Poole PA [facility] [place] [address] 06/10/2022 Office Visit Dermatology Laura Scherer MD [facility] ER [address] [place], [place] [address] (Wo rk) documented as of this encounter Procedures Procedure Name Priority Date/Time Associated Diagnosis Comme nts HEMOGRAM Routine 08/04/2017 12:55 Essential Results for this PM EST hypertension, procedure are in malignant the results section. PROTHROMBIN TIME Routine 08/04/2017 12:55 Coronary artery Resu lts for this PM EST rupture procedure are in Ischemic the results cardiomyopathy section. Atherosclerosis of galena coronary artery, angina presence unspecified, unspecified whether galena or transplanted heart URIC ACID Routine 08/04/2017 [...] the results diabetic section. nephropathy, unspecified intermediate insulin use status Essential hypertension, malignant COMPREHENSIVE Routine 08/04/2017 12:55 Essential Results fo r this METABOLIC PANEL PM EST hypertension, procedure a re in (NON-FASTING) malignant the results section. documented in this encounter Results Uric acid (08/04/2017 12:55 PM EST) P athologist Signature Uric Acid 7.1 3.5 - 8.5 [facility] mg/dL [facility] Specimen Anatomical Collection Method Collection Time Receive d Time (Source) Location / / Volume Laterality Blood specimen 08/04/2017 12:55 8 1:01 (specimen) PM EST PM EST Resulting Agency Comment Spec In Lab Lovely Vicente MD CHEMISTRY ORDERABLES Performing Organization Address City/[facility]/[place]IP [place] [address] (ABNORMAL) Hemogram (08/04/2017 12:55 PM EST) Analysis Performed At Patho logist Time Signature WBC 15.8 (H) 4.0 - 9.5 [facility] x[facility](3)/[facility] LABORATORY RBC 3.48 (L) 4.58 - [facility] RYAN 5.54 [facility] x10(6)/[facility] LABORATORY Hemoglobin 9.9 (L) 13.7 - [facility] 16.5 gm/dL [facility] Hematocrit 31.4 (L) 40.5 - [facility] 48.5 % [facility] MCV 90.2 82.9 - [facility] 93.1 [facility] LABORATORY MCH 28.4 27.5 - [facility] 32.1 pg [facility] MCHC 31.5 (L) 32.0 - [facility] 35.7 gm/dL [facility] Platelets 310 145 - 357 [facility] x10(3)/[facility] LABORATORY RDWSD 51.8 (H) 36.0 - [facility] 45.0 [facility] LABORATORY RDWCV 15.8 (H) 11.4 - [facility] RYAN 13.8 % [facility] MPV 8.9 7.6 - 12.9 [facility] LABORATORY nRBC % Auto 0.0 % [facility] nRBC Abs Auto 0.000 0.000 - [facility] 0.000 [facility] x10(3)/[facility] LABORATORY Specimen Anatomical Collection Method Collection Time Receive d Time (Source) Location / / Volume Laterality Blood specimen 08/04/2017 12:55 8 1:01 (specimen) PM EST PM EST Resulting Agency Comment Spec In Lab Lovely Vicente MD HEMATOLOGY ORDERABLES Performing Organization Address City/State/[place] [address] (ABNORMAL) Comprehensive metabolic panel (non-fasting) (08/04/2017 12:55 PM EST) athologist Signature Glucose Lvl 208 (H) 65 - 199 [facility] mg/dL [facility] Comment: Diabetes: >=200 mg/dL plus symp toms BUN 32 (H) 10 - 20 mg/dL [facility] Creatinine 1.58 (H) 0.80 - 1.50 mg/dL [facility] [...] Total Protein 6.9 6.1 - 8.0 gm/dL [facility] Albumin 3.4 3.2 - 5.2 gm/dL [facility] AST 20 0 - 39 unit/L [facility] ALT 21 0 - 55 unit/L [facility] Alk Phos 93 40 - 120 unit/L [facility] Total Bilirubin 0.4 0.2 - 1.3 mg/dL [facility] Estimated GFR 43 (L) >=60 [facility] Comment: The reported eGFR should be multiplied b y 1.2 for patients. The MDRD is not an appropriate measure o f renal function for patients with body mass extremes or in patients with acute kidney failure. http://[employer]/DHnkdep http://[employer]/DHMCnkf Specimen Anatomical Collection Method Collection Time Receive d Time (Source) Location / / Volume Laterality Blood specimen 08/04/2017 12:55 8 1:01 (specimen) PM EST PM EST Resulting Agency Comment Spec In Lab Lovely Vicente MD CHEMISTRY ORDERABLES Performing Organization Address City/State/ZIP Code Phon e Number [place] [phone]OS[address] LAB[address] Drive (ABNORMAL) Hemoglobin A1c (08/04/2017 [...] into estimated average glucose values. ??Diabetes Care 2008:31(8):8266-3846. Specimen Anatomical Collection Method Collection Time Receive d Time (Source) Location / / Volume Laterality Blood specimen 08/04/2017 12:55 8 1:01 (specimen) PM EST PM EST Resulting Agency Comment Spec In Lab Lovely Vicente MD CHEMISTRY ORDERABLES Performing Organization Address [facility] [place] [address] (ABNORMAL) Prothrombin Time (08/04/2017 12:55 PM EST) P athologist Signature PT 35.4 (H) 11.8 - 14.0 [facility] LABORATORY INR 3.5 (H) 0.9 - 1.1 [facility] [...] Vicente MD HEMATOLOGY ORDERABLES Performing Organization Address [facility] [place] [address] (ABNORMAL) pro-Brain Natriuretic Peptide (08/04/2017 12:55 PM EST) P athologist Signature ProBNP 3,133 (H) <=125 [facility] pg/mL [facility] Specimen Anatomical Collection Method Collection Time Receive d Time (Source) Location / / Volume Laterality Blood specimen 08/04/2017 12:55 8 1:01 (specimen) PM EST PM EST Resulting Agency Comment Spec In Lab Danette Maxwell APRN CHEMISTRY ORDERABLES Performing Organization Address City/State/[place] [address] documented in this encounter [...] cond ition with diabetic nephropathy, unspecified exterminator helper insulin use status documented in this encounter Care Teams Patent Counsel Relationship Specialty Start Date End Date Lovely Vicente MD PCP - General 04/16/[address] [place] [address] documented as of this encounter
--- OUTSIDE RECORDS SUMMARY | 2022-05-01 08:58 | XMS_ITS | Encounter Summary ---
:1945 [place] [address] Care Team Providers Name Role Phone Lovely Vicente MD Primary Care Provider Encounter Details Date Type Department Care Team Description 07/29/2017 Telephone Pain Aurelia Crawford MD [facility] [place] [address] PAIN CLINIC [phone] [place], [place] [address] (Wo rk) Social History Tobacco [...] Dolan MD [facility] [place], [place] [address] (Wo rk) 05/28/2022 Laboratory Appointment Lab 05/28/2022 Office Visit Cardiology Zulma Dolan [place] [address] Liz Poole PA [facility] [place] [address] 06/10/2022 Office Visit Dermatology Laura Scherer MD [facility] [address] [place], [place] [address] (Wo rk) documented as of this encounter Visit Diagnoses Not on filedocumented in this encounter Care Teams Shoder Filler Relationship Specialty Start Date End Date Lovely Vicente MD PCP - General 04/16/[address] [place] [address] [address] [place] [address] documented as of this encounter
--- OUTSIDE RECORDS SUMMARY | 2022-05-01 08:58 | XMS_ITS | Encounter Summary ---
:1945 [place] [address] Care Team Providers Name Role Phone Lovely Vicente MD Primary Care Provider Encounter Details Date Type Department Care Team Description 07/16/2017 Telephone Endocrinology at [facility] C Manuela Holliday, [facility] [place] [address] ENDOCRINOLOGY DEPT [phone] [place], [place] [address] (Wo rk) Social History Tobacco [...] Cardiology Zulma Dolan MD [facility] [place] [address] (Wo rk) 05/28/2022 Laboratory Appointment Lab 05/28/2022 Office Visit Cardiology Zulma Dolan MD [facility] [place] [address] Liz Poole PA [facility] [place] [address] 06/10/2022 Office Visit Dermatology Laura Scherer MD [facility] [address] [place], [place] [address] (Wo rk) documented as of this encounter Visit Diagnoses Not on filedocumented in this encounter Care Teams Logging Shovel Operator Relationship Specialty Start Date End Date Lovely Vicente MD PCP - General 04/16/[address] [place] [address] documented as of this encounter
--- OUTSIDE RECORDS SUMMARY | 2022-05-01 08:58 | XMS_ITS | Encounter Summary ---
:1945 Author Organization [facility] [place] [address] Care Team Providers Name Role Phone Lovely Vicente MD Primary Care Provider Encounter Details Date Type Department Care Team Description 07/29/2017 Transcribe Orders Laboratory Lovely Vicente MD [address] [address] [place] [address] [phone] (Wo rk) Social History Tobacco Use Types [...] [facility] er [address] [place] [address] (Wo rk) 05/28/2022 Laboratory Appointment Lab 05/28/2022 Office Visit Cardiology Zulma Dolan MD [facility] [place] [address] Liz Poole PA [facility] [place] [address] 06/10/2022 Office Visit Dermatology Laura Scherer MD [facility] ER DR [address] [place], [place] [address] (Wo rk) documented as of this encounter Visit Diagnoses Not on filedocumented in this encounter Care Teams Deodorizer Operator Relationship Specialty Start Date End Date Lovely Vicente MD PCP - General 04/16/[address] [place] [address] documented as of this encounter
--- OUTSIDE RECORDS SUMMARY | 2022-05-01 08:58 | XMS_ITS | Encounter Summary ---
:1945 Author Organization [facility] [place] [address] Care Team Providers Name Role Phone Lovely Vicente MD Primary Care Provider Reason for Visit Reason Comments Deep Vein Thrombosis Auth/Cert Specialty Diagnoses / Procedures Referred By Contact Refer red To Contact Diagnoses Critical lower limb ischemia CELLULITIS RT FOOT Procedures EMERGENCY Referral ID Status Reason Start Date Expiration Date Visits Requ ested Visits Authorized [id number] 1 1 Encounter Details Date Type Department Care Team Description 08/04/2017 Office Visit Vascular Surgery at [facility] itical lower limb [facility] [address] [place], [place] VASCULAR SURGERY [address] [place] [address] [phone] Social History Tobacco Use Types Packs/Day Years [...] MD [facility] [place] [address] Liz Poole PA [facility] [place] [address] 06/10/2022 Office Visit Dermatology Laura Scherer MD [facility] ER DR [address] [place], [place] [address] (Wo rk) documented as of this encounter Visit Diagnoses Diagnosis Critical lower limb ischemia Unspecified circulatory system disorder documented in this encounter Care Teams Weaving Supervisor Relationship Specialty Start Date End Date Lovely Vicente MD PCP - General 04/16/15 [facility] [address] [place], [place] [address] documented as of this encounter
--- OUTSIDE RECORDS SUMMARY | 2022-05-01 08:59 | XMS_ITS | Encounter Summary ---
:1945 [place] [address] Care Team Providers Name Role Phone Lovely Vicente MD Primary Care Provider Reason for Visit Reason Onset Date Comments Questions 07/16/2017 fluid retention Encounter Details Date Type Department Care Team Description 07/16/2017 Telephone Cardiology at [facility] Martha Comer, Questions ([facility] RN retention ) [place] [address] Social History Tobacco Use Types Packs/Day [...] the direct number to the HF team ([phone]). She is aware of his appt with [facility] on 07/21/17 and the need for labs prior to that visit. verbalized good understanding of the current POC. documented in this encounter Plan of Treatment Upcoming Encounters Date Type Specialty Care Team Description 05/28/2022 Appointment Cardiology Zulma Dolan MD [facility] [place], [place] [address] (Wo rk) 05/28/2022 Laboratory Appointment Lab 05/28/2022 Office Visit Cardiology Zulma Dolan MD [facility] [place] [address] Liz Poole PA [facility] [place] [address] 06/10/2022 Office Visit Dermatology Laura Scherer MD [facility] DR [address] [place], [place] [address] (Wo rk) documented as of this encounter Visit Diagnoses Not on filedocumented in this encounter Care Teams Wagon Driver Salesperson Relationship Specialty Start Date End Date Lovely Vicente MD PCP - General 04/16/[address] [place] [address] documented as of this encounter
--- OUTSIDE RECORDS SUMMARY | 2022-05-01 09:00 | XMS_ITS | Encounter Summary ---
:1945 Author Organization [facility] [place] [address] Care Team Providers Name Role Phone Lovely Vicente MD Primary Care Provider Encounter Details Date Type Department Care Team Description 07/08/2017 Orders Only Cardiology [facility] [place] [address] Social History Tobacco Use Types Packs/Day [...] Dolan MD [facility] er [place], [place] [address] (Wo rk) 05/28/2022 Laboratory Appointment Lab 05/28/2022 Office Visit Cardiology Zulma Dolan MD [facility] [place] [address] Liz Poole PA [facility] [place] [address] 06/10/2022 Office Visit Dermatology Laura Scherer MD [facility] ER DR [address] [place] [address] (Wo rk) documented as of this encounter [...] Mccollum ? (Age): 1945(72y) Med Rec#: ? [id number] ?Sex: ?M ? Site Loc: ? Ht / Wt: ??(cm)/ (kg) ? Pt. Loc: ? Study Date: ?? 07/07/2017 ?Pt. Type: Tape: ? Referring: Yuan Retana Reading: Yifan Perez MD ([id number]) Performing: Yifan Perez MD ([id number]) Diagnosis: SUMMARY: 1. Intraoperative AVELINO performed at the rust of Dr. Mike for the diagnosis and [...] ? Mid-Inferior ?Hypokinetic ? Mid-Inferoseptal ?Hypokinetic ? Schlater-Septal ? Hypokinetic ? Schlater-Anterior ? Hypokinetic ? Schlater-Lateral ?Hypokinetic ? Schlater-Inferior ? Hypokinetic ? Schlater-Tip ?Not Seen ? This report has been electronically sign ed by: _ Yifan Perez MD ? 07/08/2017 12 :25:18 Images reviewed and interpretation verif ied [facility] Cardiac Ultrasound Laboratory Procedure Note Yifan Perez MD - 07/08/2017Formatt ing of this note might be different from the original. Procedure: Transesophageal Echocardiogra m Patient: NATALYA MCBRIDE(Age): [birth year]72y) Med Rec#: [id number] Sex: M Site Loc: Ht / Wt: (cm)/ (kg) Pt. Loc: Study Date: 07/07/2017 Pt. Type: Tape: Referring: Yuan Retana Reading: Yifan Perez MD ([id number]) Performing: Yifan Perez MD ([id number]) Diagnosis: SUMMARY: 1. Intraoperative AVELINO performed at [...] Hypokinetic Mid-Posterolateral Hypokinetic Mid-Inferior Hypokinetic Mid-Inferoseptal Hypokinetic Schlater-Septal Hypokinetic Schlater-Anterior Hypokinetic Schlater-Lateral Hypokinetic Schlater-Inferior Hypokinetic Schlater-Tip Not Seen This report has been electronically sign ed by: _ Yifan Perez MD 07/08/2017 12:25:18 Images reviewed and interpretation elvie hwang [facility] Cardiac Ultrasound Laboratory Unknown ECHO ORDERABLES documented in this encounter Visit Diagnoses Not on filedocumented in this encounter Care Teams Flooring Installer Relationship Specialty Start Date End Date Lovely Vicente MD PCP - General 04/16/[address] [place] [address] documented as of this encounter
--- OUTSIDE RECORDS SUMMARY | 2022-05-01 09:00 | XMS_ITS | Encounter Summary ---
:1945 Author Organization [facility] [place] [address] Care Team Providers Name Role Phone Lovely Vicente MD Primary Care Provider Reason for Referral Consultation (Routine) - Closed Specialty Diagnoses / Referred By Contact Referred To Contact Procedures Cardiac Rehabilitation Diagnoses S/P CABG x 3 Yuan Webber, Cardiac Rehab, [address] [place] CARDIOTHORACIC [address] [place] [address] Referral ID Status Reason Start Date Expiration Date Visits V isits Requested Authorized [id number] Closed Consult, 07/14/2017 01/10/2018 36 36 Test & Treat Reason for Visit Auth/Cert Specialty Diagnoses / Procedures Referred By Contact Refer red To Contact Diagnoses STEMI (ST elevation myocardial infarction) NSTEMI STEMI Procedures CARDIAC CATHETERIZATION NAYE IPI Referral ID Status Reason Start Date Expiration Date Visits Requ ested Visits Authorized [id number] 1 1 Encounter Details Date Type Department Care Team Description 07/05/2017 - Hospital Encounter Cardiac Special Daphne Shahid MD [facility] [place] [address] Non-ST elevation myocardial infarction ( NSTEMI); 07/14/2017 Care Unit Yuan Preciado MD [facility] DR [place] [address] S/P CABG x 3 [place] [id number] Social History Tobacco Use Types Packs/Day Years [...] Patient Age: 72 y.o. Birthdate: 1945 Language: Swazi Race: White Ethnicity: Not nor Admit Date: [...] , @ 1:20p Patient to follow-up with Wafer Batter Mixer/heart failure team in one week. An appointment will be made for you. You may call [phone] Patient to follow-up with Cardiac Surgery, Dr. Yuan Webber, in ~ 4 weeks with CXR, EKG. Inpatient Provider Contact Information: [facility] Section of Cardiac Surgery [facility] [address] FAX [phone] Discharge Diagnoses (Hospital Problems) Primary Diagnoses: CAD [...] [facility] MA[facility] OR ??? PRO CABG, ARTERIAL, SINGLE N/A 07/07/2017 @CABG, USING ARTERIAL GRAFT;SINGLE ARTERIAL GRAFT (WRVU 33.75) performed by Yuan Webber MD at [facility] MAIN OR ??? PRO CABG, ARTERY-VEIN, TWO N/A 07/07/2017 @CABG, TWO VENOUS GRAFTS & ARTERIAL GRAFT (WRVU 7.93) performed by Yuan Webber MD at [facility] MAIN OR ??? PRO COLONOSCOPY, REMV LESN, SNARE 01/16/2014 COLONOSCOPY, POLYPECTOMY, REMOVAL LESION BY SNARE performed by Nohemi Jaimes MD at [facility] ENDOSCOPY ??? PRO ENDOSCOPY W/VIDEO-ASST VEIN HARVEST, CABG Right 07/07/2017 ENDOSCOPIC HARVEST VEIN(S) FOR CABG (WRVU 0.31) performed by Yuan Webber MD at [facility] MAIN OR ??? PRO THYROIDECTOMY 03/28/2013 THYROIDECTOMY, TOTAL OR COMPLETE performed by Manny Mcknight MD at [facility] MAIN OR Prior To Admission Medications Prescriptions Prior to Admission Medication Sig Dispense Refill Last Dose ??? levothyroxine (SYNTHROID) 175 mcg Tablet Take 1 tablet by mouth daily. 90 tablet 3 07/05/2017 [id number] ??? ascorbic acid, vitamin C, (VITAMIN C) [...] course, he was taken emergently to the phlebotomist medical lab assistant for an ongoing STEMI. An IABP [...] not take or discontinue any prescription or cudj-eoj-vcgimxu medications without asking your doctor or pharmacist [...] Yuan Webber and/or the Cardiac Surgery Physician Surveyor Mine Team may be reached at . Weight: [...] Dr. Yuan Webber. You may use a Polo Track or treadmill but avoid any pulling [...] with the surgeon. Do not ride motorcycles, bitFlyer's tractors or horses. Avoid the use of [...] should resume a low fat, low cholesterol, [place] Heart Association Diet/Diabetic diet. Driving: No driving [...] , @ 1:20p Patient to follow-up with Wafer Batter Mixer/heart failure team in one week. Appointment will be made for you. You may call [phone] Patient to follow-up with Cardiac Surgery, Dr. [...] LAB, THREE L Lab 3L [facility] [phone] 09/07/2017 4:00 PM Luz Prescott MD Endocrinology at [facility] [phone] Future Orders Complete By Expires EKG 12 Lead [EKG1 Custom] 08/14/2017 02/13/2018 Process Instructions: Scheduling Instructions: Questions: Which location will this be performed?: [facility] Is a rhythm strip needed?: No If EKG Reason is Pre-op Evaluation, indicate diagnosis for surgery.: XR Chest PA & Lateral (Generic) [35332 [id number] Custom] 08/14/2017 02/13/2018 Process Instructions: Scheduling Instructions: Questions: Where will study be performed?: [facility] Portable exam?: Reason for exam and clinical history: CABG x 3 Other pertinent information: Stat read required?: Date of injury if applicable: Requested Time: Referral to Cardiac Rehab [SLJ936 Custom] As directed Process Instructions: If no progress note charted, please enter Clinical details in comments. Scheduling Instructions: Questions: My question or request is: s/p CABG. Cardiac rehab at [facility] Referral to Home Health - at DISCHARGE [ZMH9132 CPT(R)] As directed Process Instructions: Scheduling Instructions: Comments: DOCUMENTATION FOR VNA SERVICES (INCLUDING THOSE PATIENTS WITH MEDICARE COVERAGE REQUIRING HOME VNA SERVICES AND/OR HOSPICE SERVICES) PATIENT'S LOCATION: Gregory Hoang [address] [place] [address] [place] [id number] (home) Telephone Information: Thread Trimmer's Name: self In discussion with the attending physician, it is certified that this patient is under their care and that they, or a Nurse Practitioner, or Physician Surveyor Mine who is working directly with them, had [...] [facility] ([facility] [place] [facility] in [place] PHONE: [phone] FAX: [phone] RN orders: Cardiopulmonary assessment, incisional assessment, assess vital signs, assessment of rehab progress, medication management and effectiveness, home safety evaluation. Please draw INR if indicated and send result to:Dr Vicente [phone] PT ORDERS: Continue rehab for endurance, gait stability and strength with mobility and transfers. Home safety evaluation. Home exercise program if appropriate. Start of Care Date:24-48 hours after discharge SPECIAL INSTRUCTIONS: For any follow up questions, needs, or issues please call the Cardiac Surgery Office at [phone] FOR MEDICARE ONLY: (please delete this section [...] AFTER 07/17/2017 Signed: Martha Teague APRN [facility] [address] FAX [phone] Date: 07/14/2017 CC: MD Ivania Cr Betsy, PA [address] [place] [phone] documented in this encounter Discharge Instructions Discharge [...] not take or discontinue any prescription or obep-etx-zkqhnsl medications without asking your doctor or pharmacist [...] juice or regular (not diet) soda 6 [employer] small box of raisins 4 glucose tablets [...] Yuan Webber and/or the Cardiac Surgery Physician Surveyor Mine Team may be reached at . ?? [...] Dr. Yuan Webber. You may use a Polo Track or treadmill but avoid any pulling [...] with the surgeon. Do not ride motorcycles, bit[employer]er[employer] tractors or horses. Avoid the use of [...] should resume a low fat, low cholesterol, [place] Heart Association Diet/Diabetic diet. ?? Driving: No [...] @ 1:20p ?? Patient to follow-up with Wafer Batter Mixer/heart failure team in one week. An appointment has been made for you, you can call [phone] ?? Patient to follow-up with Cardiac Surgery, [...] LAB, THREE L Lab 3L [facility] [phone] ?? 09/07/2017 4:00 PM Luz Prescott MD Endocrinology at [facility] [phone] Future Orders Complete By Expires ?? EKG 12 Lead [EKG1 Custom] 08/14/2017 02/13/2018 ?? Process Instructions: ? Scheduling Instructions: ? Questions: ? Which location will this be performed?: [facility] ?? Is a rhythm strip needed?: No ?? If EKG Reason is Pre-op Evaluation, indicate diagnosis for surgery.: ?? XR Chest PA & Lateral (Generic) [[id number] Custom] 08/14/2017 02/13/2018 ?? Process Instructions: ? Scheduling Instructions: ? Questions: ? Where will study be performed?: [facility] ?? Portable exam?: ?? Reason for exam and clinical history: CABG x 3 ?? Other pertinent information: ?? Stat read required?: ?? Date of injury if applicable: ?? Requested Time: ?? Referral to Cardiac Rehab [NGV325 Custom] As directed ? Process Instructions: ?? [...] are placed. Patient requests referral to [facility] PHONE: [phone] FAX: [phone] Expected date of discharge: 07/14 Referral routed to the National Opelint Analyst for matching with agency/vendor and to [...] [facility] [place] Endocrinology Diabetes Management Pager [phone] 20 minutes of this 35 minute visit was spent with the patient in counseling on diabetes and treatment plan, reviewing all glucose and insulin data as well as relevant laboratory results with the patient, and coordination of care on the inpatient unit including nursing and primary team. Zulma Adnres, RN - 07/14/2017 10:30 AM EST The patient/sales promotion representative has been provided a list of Home Health Agencies/DME vendors which serve their preferred geographic area. A letter describing our affiliations was reviewed with them and theywere educated about their right to choose where referrals are placed. Patient requests referral to : Yasmani Munguia ([facility] [place] [facility]-is in [place] PHONE: [phone] FAX: [phone]. Expected date of discharge: 07/14/17 Referral routed to the National Opelint Analyst for matching with agency/vendor and to [...] hours. If BG remains greater than 240, sczoje45 units (no more than three times) &??call [...] [facility] [place] Endocrinology Diabetes Management Pager [phone] 15 minutes of this 25 minute visit [...] of infiltration/extravasation Discussed plan of care with MICROWAVE REMOTE SENSING SCIENTIST and RN. Elevate exrtemity and apply intermittent Warm compresses. Name of MD contacted Dr. Shaw Brown 07/13/2017 @ 0608 Name of RN contacted Ale Rangel RN Name of Pharmacist if consulted NA Name of Plastics MD ( if consulted) NA (Mandatory photo for infiltrations/ extravasations scoring a stage 2 or greater, but recommended forstage 1)( include measuring tape and identifier in the photo) SENIOR PROPERTY ACCOUNTANT CARING FOR THIS PATIENT WILL CONTINUE TO [...] tape and identifier in the photo) SENIOR PROPERTY ACCOUNTANT CARING FOR THIS PATIENT WILL CONTINUE TO [...] regard to both infiltrates addressed by this creative services writer.All of Mr. Hoang's responses were entirely appropriate. Images of infiltrates attached here. Martha Sharp APRN - 07/13/2017 8:01 AM EST Cardiac Surgery Progress Note: ID: [id number] 72 year old male POD#6 s/p CABGx3 [...] Office of Care Management letter from the Textile Broker pertaining to rehab referrals. I have also provided a letter describing our affiliations within the [facility] and educated them about their right [...] date of discharge: 07/14 Note routed to National Opelint Analyst who will communicate referrals to facilities [...] hours. If BG remains greater than 240, mhjxee36 units (no more than three times) & [...] hours. If BG remains greater than 240, sizeef24 units (no more than three times) & call for new basal insulin orders. ??If less than 240 after two hours, give no insulin and resume prior schedule. Will continue to follow Katerin Patel. STACIE Azul [facility] Endocrinology Diabetes Management Pager [phone] 20 minutes of this 35 minute visit was spent with the patient in counseling on diabetes and treatment plan, reviewing all glucose and insulin data as well as relevant laboratory results with the patient, and coordination of care on the inpatient unit including nursing and primary team. Makayla Stevenson APRN - 07/12/2017 9:52 AM EST Cardiac Surgery Progress Note: ID: [id number] 72 year old male POD#5 s/p CABGx3 [...] 7:18 PM EST Patient arrived from [facility]. VSS. MSI dressing pulled off with [...] AM EST Cardiac Surgery Progress Note: ID: [id number] 72 year old male POD#4 s/p CABGx3 [...] hours. If BG remains greater than 240, wezfpx69 units (no more than three times) & [...] AM EST Cardiac Surgery Progress Note: ID: [id number] 72 year old male POD#3 s/p CABGx3 [...] Gas) No results found for: PHART, PO2ART, MAU9TBH Assessment/Plan: 72 year old male POD#3 s/p [...] Encounter Note Patient Name: Gregory Hoang : [id number] MR#: [id number] Admit Date: 07/05/2017 4:20 PM Hospital Day 4 days Narrative: Patient was sitting in chair, hugging heart pillow, opened his eyes, nodding to come into room Assessment: Patient was sleepy. Intervention and Outcome: Introduced legal compliance officer services and patient reached his hand out in appreciation. Follow-up: Quality Cloth Tester remains available for support. Time in [...] 10:45 AM EST Report given to staffing mgr to cover care Maddison Cee PA - 07/09/2017 9:00 AM EST Cardiac Surgery Progress Note: ID: [id number] 72 year old male POD#2 s/p CABGx3 [...] of Cardiac Surgery Date: 07/09/2017 Magnolia Santiago [facility] - 07/09/2017 1:[address] [...] when IABP d/c'ed. Gretchen Carolina, PT Pager [phone] Maddison Cee PA - 07/08/2017 11:27 AM EST Cardiac Surgery Progress Note: ID: [id number] 72 year old male POD#1 s/p CABGx3 [...] unit. NICK SEGAL MD 07/08/2017 Jay Munoz [facility] - 07/08/2017 4:[address] [...] in place in R femoral. No hematoma. COMBINATION SAW OPERATOR- Intact Psych- Anxious Skin- Dry, no [...] intact. IABP in place in R femoral. COMBINATION SAW OPERATOR- Intact Psych- Anxious Skin- Dry, no [...] note for details. DAPHNE SHAHID MD Pager [phone] Jet Mckenna MD - 07/05/2017 6:48 PM EST Preliminary Cardiac Catheterization Procedure Note: Procedure(s) performed: Left heart cath, IABP insertion Access: Right SPOUT POSITIONER-->8fr IABP A time-out was conducted prior to [...] effect. Heparin gtt maintained. Pt transferred to phlebotomist medical lab assistant. documented in this encounter H&P Notes Daphne Shahid MD - 07/05/2017 6:08 PM EST CARDIOLOGY HISTORY & PHYSICAL EXAM Date of Admission: 07/05/2017 ( Hospital Day 0 days ) Responsible Attending: Daphne Shahid MD PCP: Lovely Vicente MD PCP#: [phone] Patient Active Problem List Diagnosis Code ??? [...] No significant valvular disease. Taken to the phlebotomist medical lab assistant urgently for ongoing STEMI. [facility] [...] monitor I/O - s/p lasix in the phlebotomist medical lab assistant, redose to aim net neg 1L [...] - ISS - hold metformin - f/u [facility] #Home Meds - continue levothyroxine 175mcg - CPAP at night # Routine - DVT PPx: heparin drip - Diet: NPO - Code Status: FULL - Dispo: [facility] Cedric Bey MD Internal Medicine, PGY-2 Cardiology S1, Team Pager # [phone] CARDIOLOGY ATTENDING NOTE Patient: Gregory Hoang Date [...] amenable for PCI. DAPHNE SHAHID MD Pager [phone] documented in this encounter Miscellaneous Notes Consult Note - Daphne Shahid MD - 07/14/2017 11:46 AM EST Heart Failure Service Inpatient Consult Note Gregory Hoang Date of : 1945 Age: 72 y.o. Today's date: 07/14/17 PCP: Lovely Vicente MD MICROFILM EQUIPMENT INSPECTOR: None [facility] of Service[place] [facility] Reason for Consult: Dr. Webber has requested [...] [facility] ??? PRO CABG, ARTERIAL, SINGLE N/A 07/07/2017 @CABG, USING ARTERIAL GRAFT;SINGLE ARTERIAL GRAFT (WRVU 33.75) performed by Yuan Webber MD at [facility] MAIN OR ??? PRO CABG, ARTERY-VEIN, TWO N/A 07/07/2017 @CABG, TWO VENOUS GRAFTS & ARTERIAL GRAFT (WRVU 7.93) performed by Yuan Webber MD at [facility] MAIN OR ??? PRO COLONOSCOPY, REMV LESN, SNARE 01/16/2014 COLONOSCOPY, POLYPECTOMY, REMOVAL LESION BY SNARE performed by Nohemi Jaimes MD at [facility] ENDOSCOPY ??? PRO ENDOSCOPY W/VIDEO-ASST VEIN HARVEST, CABG Right 07/07/2017 ENDOSCOPIC HARVEST VEIN(S) FOR CABG (WRVU 0.31) performed by Yuan Webber MD at [facility] MAIN OR ??? PRO THYROIDECTOMY [...] studies: EKG 07/14/17: NSR 75 bpm, AUTO CLUB SAFETY PROGRAM COORDINATOR anterior infarct, LAD CXR 07/11/17: FINDINGS: Sternotomy wires. The patient has been extubated, left chest tube removed, and Kalona-Suzi catheter removed since the 07/07/2017 study. Atelectasis [...] was discussed with Zehra. Jaden Kelley MD Instructor [employer]ence [employer] Pager [phone] CARDIOLOGY ATTENDING NOTE Patient: Gregory Hoang Date [...] heart failure clinic. DAPHNE SHAHID MD Pager [phone] Plan of Care - Alden Chavarria, TECHNICAL INFORMATION SPECIALIST - 07/14/2017 11:35 AM EST Problem: Patient [...] Discharge Disposition: home with assist Alden Chavarria, TECHNICAL INFORMATION SPECIALIST Pager: [phone] Inpatient Physical Therapy Problem: Acute Rehab Services [...] sit/sit to supine -- Bed Mobility Goal, [place] Level supervision required -- Bed Mobility Goal, [...] - 3 days -- Gait Training Goal, [place] Level supervision required -- Gait Training Goal, [...] days -- Transfer Training Goal, Activity Type qqg-qm-njnnc/ubglf-bg-fcc;lsu-mu-oznjo/pvxtg-xu-fga;toilet -- Transfer Train Goal, [place] Level supervision required -- Transfer Training Goal, [...] keeping present for 2 days per family. Paint Booth Operator noted of frustrations, house keeping sent to room. Patient offered showered twice, refused. at bedside, frustrated that shower not complete, informed that patient had refused several times. requesting to see CERTIFIED PHARMACY TECHNICIAN, paged sent to Martha, will come to bedside (middle of consult). not willing to wait, Martha notified that family had gone home. Encouraged to come for morning rounds a t 8am. Diabetes team at bedside - insulin adjustments made. Call cabello in reach. Continue to monitor. PLAN MOVING FORWARD: Ambulate, dressing changes BID, Please change drsg at 4am per Martha CERTIFIED PHARMACY TECHNICIAN request. INDIVIDUALIZED FALL PREVENTION INTERVENTIONS: Patient-specific [...] levels on the lower side, 60ml of [place] juice given after a FS of 80. [...] Anticipated Discharge Disposition: home with assist Pager: [phone] CLARISSA SEGAL, PT 07/12/2017 Physical Therapy Rehabilitation [...] to sit/sit to supine Bed Mobility Goal, [place] Level supervision required Bed Mobility Goal, Additional Goal adheres to psternal precautions for transfer Goal: Gait Training Goal Stand Alone Therapy Goal Outcome: Ongoing (Interventions Implemented as Appropriate) 07/12/17 1225 Gait Training Goal Gait Training Goal, Date Established 07/12/17 Gait Training Goal, Time to Achieve 2 - 3 days Gait Training Goal, [place] Level supervision required Gait Training Goal, Assist [...] 3 days Transfer Training Goal, Activity Type vpk-zb-qlmiq/clhuu-sf-wxf;xpg-yc-tdxzy/mxafa-eo-lsr;toilet Transfer Train Goal, [place] Level supervision required Transfer Training Goal, Additional [...] IV site, amio to other piv and FISHING BOAT MATE at bedside to help assess, IV removed. [...] Outcome: Ongoing (Interventions Implemented as Appropriate) 07/11/17199907/11/17200907/12/17 [facility] Daily Care Interventions Self-Care [...] staff, he stood and marched in place. [place] weak, wanting to sit back down. Remained [...] Outcome: Ongoing (Interventions Implemented as Appropriate) 07/05/17 [id number] Mutuality/Individual Preferences What Anxieties, Fears or Concerns [...] Health/Prescription Coverage: Primary Insurance: MEDICARE Secondary Insurance: tri[place]iece [place] Prescription Coverage: yes Preferred Pharmacy: [facility] [place] Other: none Primary Care Provider: Lovely Vicente MD [phone] Patient/Caregiver Goals of Treatment:live and get my breath back Potential Needs for Transition of Care: Rehab/SNF: [facility] Home Health: NA DME: TBD Dialysis: na Community Resources: available Transportation: yes Other: none Anticipated Barriers to Discharge/Special Considerations: none Plan: Likely SNF Rehab before home A member of the Care Management team will continue to monitor progress, follow for continuity of care and assist with transition of care planning. ERLIN Weiss Pager: [phone] Consult Note - Katerin Azul RN - [...] potential to d/c gtt and start CF. 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 Monitoring - continue BG tid ac & hs Diet - low fat/low carb diet Exercise - weight-bearing exercise 30 min/day, as tolerated Thank you for allowing us to provide care for your patient W/E coverage, Dr. Jeane Tatum, pager [phone] Katerin Patel. STACIE Azul Endocrinology Diabetes Management Pager [phone] Plan of Care - Stephanie Godoy RN [...] Operative Note Patient Name: Gregory Hoang : [id number] MR#: [id number] Case Date: 07/07/2017 Surgeon: Surgeon(s) and Role: * Yuan Webber MD - Primary * Michael Drake PA - Physician Surveyor Mine * Linda Flores PA - Physician Surveyor Mine Preoperative diagnosis: 3VD Postoperative diagnosis: CAD, severe [...] Operative Note Patient Name: Gregory Hoang : [id number] MR#: [id number] Case Date: 07/07/2017 Surgeon: Surgeon(s) and Role: * Yuan Webber MD - Primary * Michael Drake PA - Physician Surveyor Mine * Linda Flores PA - Physician Surveyor Mine Preoperative diagnosis: 3VD Postoperative diagnosis: CAD, severe [...] code status: Full Code Katty Davidjose, MS3 [facility] Cardiology S1 (Pager [phone]) Plan of Care - Emelia Ibarra RN [...] with other involved physicians Yuan Webber MD [phone] Med Student Progress Note - Katty Hahn [...] or BiPAP - s/p lasix in the phlebotomist medical lab assistant, was net -1.5L - s/p plavix [...] - Dispo: [facility] Katty Hahn, M3 [facility] Cardiology S1 (Pager [phone]) Plan of Care - Stephanie Godoy RN [...] in urinal without difficulty. Lasix given in phlebotomist medical lab assistant, 1.4 L out at this time. [...] Dolan MD [facility] [address] [place] [address] (Wo lissa) 05/28/2022 Laboratory Appointment Lab 05/28/2022 Office Visit Cardiology Zulma Dolan MD [facility] [place] [address] Liz Poole PA [facility] [place] [address] 06/10/2022 Office Visit Dermatology Laura Scherer MD [facility] DR TEJA GR-DERMAT [place]LOGY [place], [place] [address] (Wo rk) Scheduled Orders Name [...] procedure are i n the results section. MEAT PROCESSOR SCAN 07/15/2017 12:00 Res ults for this [...] or this ([facility]) AM EST procedure are i n [...] 2017 EXAMINATION: XR CHEST PA AND LATERAL (Doctor.comIC) CLINICAL HISTORY: CABG x 3 TECHNIQUE: PA [...] Teague APRN IMG DX ORDERABLES SCAN DOC: MEAT PROCESSOR (07/15/2017 12:00 AM EST) Narrative 07/15/2017 12:00 [...] Glucose 186 65 - 199 [facility] mg/dL [facility] Comment: Supplemental ranges: <140 mg/dL before meals <180 mg/dL all other times of the day Specimen Anatomical Collection Method Collection Time Receive d Time (Source) Location / / Volume Laterality Blood specimen 07/14/2017 11:56 7 (specimen) AM EST 11:56 AM EST Yuan Webber MD POINT OF CARE TEST ORDERABLE S Performing Organization Address City/[facility]/[place] [address] POCT Glucose (07/14/2017 7:52 AM EST) athologist Signature POC Glucose 126 65 - 199 [facility] mg/dL [facility] Comment: Supplemental [...] City/State/[place] [address] (ABNORMAL) Prothrombin Time (07/14/2017 [...] APRN HEMATOLOGY ORDERABLES Performing Organization Address City/[facility]/[place] [address] Potassium (07/14/2017 4:46 AM EST) athologist Signature Potassium 4.3 3.5 - 5.0 [facility] mmol/L [facility] Comment: Please [...] Hospital/[place] [address] POCT Glucose (07/14/2017 4:34 AM EST) athologist Signature POC Glucose 115 65 - 199 [facility] mg/dL [facility] Comment: Supplemental [...] City/State/ZIP Code Phon e Number [place] [id number] POCT Glucose (07/13/2017 11:33 PM EST) athologist Signature POC Glucose 132 65 - 199 [place]HA[place] mg/dL [facility] Comment: Supplemental [...] Address City/State/ZIP Code Phon e Number [address] POCT Glucose (07/13/2017 9:25 PM EST) athologist Signature POC Glucose 121 65 - 199 [place] RYAN mg/dL [facility] Comment: Supplemental [...] Address City/State/ZIP Code Phon e Number [address] POCT Glucose (07/13/2017 4:55 PM EST) athologist Signature POC Glucose 79 65 - 199 [place] RY[place] mg/dL [facility] Comment: Supplemental [...] City/State/[place] [address] POCT Glucose (07/13/2017 11:16 AM EST) athologist Signature POC Glucose 163 65 - 199 [facility] mg/dL [facility] Comment: Supplemental [...] Address City/State/ZIP Code Phon e Number [address] POCT Glucose (07/13/2017 8:07 AM EST) athologist Signature POC Glucose 96 65 - 199 [facility] Comment: Supplemental [...] Address City/State/ZIP Code Phon e Number [address] (ABNORMAL) Prothrombin Time [...] Address City/State/[place] [address] (ABNORMAL) Basic Metabolic Panel (non-fasting) (07/13/2017 4:26 AM EST) athologist Signature Glucose Lvl 95 65 - 199 [facility] mg/dL [facility] Comment: [...] [facility] Estimated GFR 60 >=60 [facility] Comment: The reported eGFR should be multiplied b y 1.2 for patients. The MDRD is not an appropriate measure o f renal function for patients with body mass extremes or in patients with acute kidney failure. [email or web address] http://emploi.us/DHMCnkf Specimen Anatomical Collection Method Collection Time Receive d Time (Source) Location / / Volume Laterality Blood specimen 07/13/2017 4:26 AM 017 4:46 (specimen) EST AM EST Resulting Agency Comment Spec In Lab Makayla Wilson APRN CHEMISTRY ORDERABLES Performing Organization Address City/[facility]/ZIP Code Phon e Number [address] POCT Glucose (07/13/2017 3:52 AM EST) athologist Signature POC Glucose 93 65 - 199 [facility] RYAN mg/dL [facility] Comment: Supplemental ranges: <140 mg/dL before meals <180 mg/dL all other times of the day Specimen Anatomical Collection Method Collection Time Receive d Time (Source) Location / / Volume Laterality Blood specimen 07/13/2017 3:52 AM 017 3:52 (specimen) EST AM EST Yuan Webber MD POINT OF CARE TEST ORDERABLE S Performing Organization Address City/[facility]/ZIP Code Phon e Number [address] POCT Glucose (07/13/2017 12:21 AM EST) athologist Signature POC Glucose 80 65 - 199 [place] mg/dL [facility] Comment: Supplemental ranges: <140 mg/dL before meals <180 mg/dL all other times of the day Specimen Anatomical Collection Method Collection Time Receive d Time (Source) Location / / Volume Laterality Blood specimen 07/13/2017 12:21 7 (specimen) AM EST 12:21 AM EST Yuan Webber MD POINT OF CARE TEST ORDERABLE S Performing Organization Address City/[facility]/[place] [address] POCT Glucose (07/12/2017 8:22 PM EST) athologist Signature POC Glucose 119 65 - 199 [place] RY[place] mg/dL [facility] Comment: Supplemental [...] Address City/State/ZIP Code Phon e Number [address] POCT Glucose (07/12/2017 4:02 PM EST) athologist Signature POC Glucose 114 65 - 199 [place] mg/dL [facility] Comment: Supplemental [...] Address City/State/ZIP Code Phon e Number [address] POCT Glucose (07/12/2017 11:28 AM EST) athologist Signature POC Glucose 164 65 - 199 [facility] RYAN mg/dL [facility] Comment: Supplemental [...] Address City/State/ZIP Code Phon e Number [address] POCT Glucose (07/12/2017 7:34 AM EST) athologist Signature POC Glucose 109 65 - 199 [facility] RYAN mg/dL [facility] Comment: Supplemental [...] Address City/State/[place] [address] (ABNORMAL) Basic Metabolic Panel (non-fasting) (07/12/2017 4:11 AM EST) P athologist Signature Glucose Lvl 92 65 - 199 [facility] mg/dL [facility] Comment: [...] CENTER LABORATORY Estimated GFR 58 (L) >=60 [facility] Comment: The reported eGFR should be multiplied b y 1.2 for patients. The MDRD is not an appropriate measure o f renal function for patients with body mass extremes or in patients with acute kidney failure. [email or web address] [email or web address] Specimen Anatomical Collection Method Collection Time Receive d Time (Source) Location / / Volume Laterality Blood specimen 07/12/2017 4:11 AM 017 8:57 (specimen) EST AM EST Resulting Agency Comment Spec In Lab Makayla Wilson APRN CHEMISTRY ORDERABLES Performing Organization Address City/State/[place] [address] (ABNORMAL) Prothrombin Time (07/12/2017 [...] [place] STACIE HEMATOLOGY ORDERABLES Performing Organization Address City/[facility]/[place] [address] Potassium (07/12/2017 4:11 AM EST) athologist Signature Potassium 3.8 3.5 - 5.0 [facility] mmol/L [facility] Comment: Please [...] Agency Comment Spec In Lab Makayla [place]jesusfield COMBINATION OPERATOR CHEMISTRY ORDERABLES Performing Organization Address City/[facility]/[place] [address] POCT Glucose (07/12/2017 4:10 AM EST) athologist Signature POC Glucose 90 65 - 199 [facility] Comment: Supplemental [...] Address City/State/ZIP Code Phon e Number [address] POCT Glucose (07/11/2017 11:57 PM EST) athologist Signature POC Glucose 98 65 - 199 [facility]/dL [facility] Comment: Supplemental [...] Address City/State/ZIP Code Phon e Number [address] POCT Glucose (07/11/2017 8:32 PM EST) athologist Signature POC Glucose 146 65 - 199 [facility]/dL [facility] Comment: Supplemental [...] City/State/[place] [address] XR Chest PA & [...] e xtubated, left chest tube removed, and Kalona-Suzi catheter removed since the study. Atelectasis at [...] e xtubated, left chest tube removed, and Kalona-Suzi catheter removed since the study. Atelectasis at [...] (H) 65 - 199 [place] mg/dL [facility] Comment: Supplemental [...] Address City/State/ZIP Code Phon e Number [address] POCT Glucose (07/11/2017 11:55 AM EST) athologist Signature POC Glucose 176 65 - 199 [place] ZHAORY[place] mg/dL [facility] Comment: Supplemental ranges: <140 mg/dL before meals <180 mg/dL all other times of the day Specimen Anatomical Collection Method Collection Time Receive d Time (Source) Location / / Volume Laterality Blood specimen 07/11/2017 11:55 7 (specimen) AM EST 11:55 AM EST Yuan Webber MD POINT OF CARE TEST ORDERABLE S Performing Organization Address City/[facility]/ZIP Code Phon e Number [address] POCT Glucose (07/11/2017 7:53 AM EST) athologist Signature POC Glucose 189 65 - 199 [place] mg/dL [facility] Comment: Supplemental [...] City/State/[place] [address] POCT Glucose (07/11/2017 4:22 AM EST) athologist Signature POC Glucose 151 65 - 199 [place] mg/dL [facility] Comment: Supplemental ranges: <140 mg/dL before meals <180 mg/dL all other times of the day Specimen Anatomical Collection Method Collection Time Receive d Time (Source) Location / / Volume Laterality Blood specimen 07/11/2017 4:22 AM 017 4:22 (specimen) EST AM EST Yuan Webber MD POINT OF CARE TEST ORDERABLE S Performing Organization Address City/[facility]/[place] [address] Potassium (07/11/2017 2:20 AM EST) athologist Signature Potassium 4.5 3.5 - 5.0 [facility] mmol/L [facility] Comment: Please [...] MD CHEMISTRY ORDERABLES Performing Organization Address City/[facility]/[place] [address] POCT Glucose (07/11/2017 12:17 AM EST) athologist Signature POC Glucose 162 65 - 199 [place] mg/dL [facility] Comment: Supplemental ranges: <140 mg/dL before meals <180 mg/dL all other times of the day Specimen Anatomical Collection Method Collection Time Receive d Time (Source) Location / / Volume Laterality Blood specimen 07/11/2017 12:17 7 (specimen) AM EST 12:17 AM EST Yuan Webber MD POINT OF CARE TEST ORDERABLE S Performing Organization Address City/[facility]/[place] [address] POCT Glucose (07/10/2017 8:47 PM EST) athologist Signature POC Glucose 191 65 - 199 [place] mg/dL [facility] Comment: Supplemental [...] City/State/[place] [address] POCT Glucose (07/10/2017 4:06 PM EST) athologist Signature POC Glucose 131 65 - 199 [place] mg/dL [facility] Comment: Supplemental ranges: <140 mg/dL before meals <180 mg/dL all other times of the day Specimen Anatomical Collection Method Collection Time Receive d Time (Source) Location / / Volume Laterality Blood specimen 07/10/2017 4:06 PM 017 4:06 (specimen) EST PM EST Yuan Webber MD POINT OF CARE TEST ORDERABLE S Performing Organization Address City/[facility]/[place] [address] POCT Glucose (07/10/2017 3:08 PM EST) athologist Signature POC Glucose 151 65 - 199 [place] mg/dL [facility] Comment: Supplemental [...] City/State/[place] [address] POCT Glucose (07/10/2017 2:25 PM EST) athologist Signature POC Glucose 146 65 - 199 [facility] R[facility] mg/dL [facility] Comment: Supplemental [...] Address City/State/ZIP Code Phon e Number [address] POCT Glucose (07/10/2017 1:23 PM EST) P athologist Signature POC Glucose 166 65 - 199 [place]HAORY[place] mg/dL [facility] Comment: Supplemental ranges: <140 mg/dL before meals <180 mg/dL all other times of the day Specimen Anatomical Collection Method Collection Time Receive d Time (Source) Location / / Volume Laterality Blood specimen 07/10/2017 1:23 PM 017 1:23 (specimen) EST PM EST Yuan Webber MD POINT OF CARE TEST ORDERABLE S Performing Organization Address City/[facility]/ZIP Code Phon e Number [address] POCT Glucose (07/10/2017 11:52 AM EST) P athologist Signature POC Glucose 157 65 - 199 [place] mg/dL [facility] Comment: Supplemental ranges: <140 mg/dL before meals <180 mg/dL all other times of the day Specimen Anatomical Collection Method Collection Time Receive d Time (Source) Location / / Volume Laterality Blood specimen 07/10/2017 11:52 7 (specimen) AM EST 11:52 AM EST Yuan Webber MD POINT OF CARE TEST ORDERABLE S Performing Organization Address City/[facility]/[place] [address] POCT Glucose (07/10/2017 11:01 AM EST) P athologist Signature POC Glucose 158 65 - 199 [place] RY[place] mg/dL [facility] Comment: Supplemental [...] Address City/State/ZIP Code Phon e Number [address] POCT Glucose (07/10/2017 9:54 AM EST) athologist Signature POC Glucose 160 65 - 199 [place]HA[place] mg/dL [facility] Comment: Supplemental ranges: <140 mg/dL before meals <180 mg/dL all other times of the day Specimen Anatomical Collection Method Collection Time Receive d Time (Source) Location / / Volume Laterality Blood specimen 07/10/2017 9:54 AM 017 9:54 (specimen) EST AM EST Yuan Webber MD POINT OF CARE TEST ORDERABLE S Performing Organization Address City/[facility]/ZIP Code Phon e Number [address] POCT Glucose (07/10/2017 8:58 AM EST) athologist Signature POC Glucose 183 65 - 199 [place] RY[place] mg/dL [facility] Comment: Supplemental [...] Address City/State/ZIP Code Phon e Number [address] POCT Glucose (07/10/2017 8:01 AM EST) athologist Signature POC Glucose 173 65 - 199 [facility] RY[facility] mg/dL [facility] Comment: Supplemental [...] Address City/State/ZIP Code Phon e Number [address] POCT Glucose (07/10/2017 7:05 AM EST) athologist Signature POC Glucose 166 65 - 199 [place] mg/dL [facility] Comment: Supplemental [...] Address City/State/ZIP Code Phon e Number [address] POCT Glucose (07/10/2017 6:00 AM EST) athologist Signature POC Glucose 162 65 - 199 [facility] mg/dL [facility] Comment: Supplemental [...] City/State/[place] [address] (ABNORMAL) Differential, Automated (07/10/2017 4:28 AM EST) [facility] gist Method Time Signature Neutrophils % 87.9 % [facility] Neutr Abs (ANC) 10.70 (H) 1.70 - [facility] 6.10 [facility] x10(3)/[facility] L LABORATORY Lymphocytes % 3.9 % [facility] Lymphocytes Abs 0.5 (L) 0.9 - 3.2 [facility] x10(3)/[facility] LABORATORY Monocytes % 7.0 % [facility] Monocyte Abs 0.8 0.3 - 0.9 [facility] x10(3)/[facility] LABORATORY Eosinophils % 0.3 % [facility] Eosinophils Abs 0.0 0.0 - 0.4 [facility] x10(3)/[facility] LABORATORY Basophils % 0.2 % [facility] Basophils Abs 0.0 0.0 - 0.1 [facility] x10(3)/[facility] LABORATORY Immature Gran % 0.70 % [facility] [...] Address City/State/[place] [address] (ABNORMAL) Hemogram (07/10/2017 4:28 AM EST) Analysis Performed At Patho logist Time Signature WBC 12.2 (H) 4.0 - 9.5 [facility] x10(3)/[facility] LABORATORY RBC 3.31 (L) 4.58 - [facility] 5.54 [facility] x10(6)/[facility] LABORATORY Hemoglobin 9.8 (L) 13.7 - [facility] 16.5 gm/dL [facility] Hematocrit 30.0 (L) 40.5 - [facility] 48.5 % [facility] MCV 90.6 82.9 - [facility] 93.1 fL [facility] MCH 29.6 27.5 - [facility] 32.1 pg [facility] MCHC 32.7 32.0 - [facility] 35.7 gm/dL [facility] Platelets 135 (L) 145 - 357 [facility] x10(3)/[facility] LABORATORY RDWSD 50.8 (H) 36.0 - [facility] 45.0 [facility] LABORATORY RDWCV 15.4 (H) 11.4 - [facility] 13.8 % [facility] MPV 10.0 7.6 - 12.9 [facility] LABORATORY nRBC % Auto 0.0 % [facility] nRBC Abs Auto 0.000 0.000 - [facility] 0.000 [facility] x10(3)/[facility] LABORATORY Specimen Anatomical Collection Method Collection Time Receive d Time (Source) Location / / Volume Laterality Blood specimen 07/10/2017 4:28 AM 017 4:36 (specimen) EST AM EST Resulting Agency Comment Spec In Lab Yuan Webber MD HEMATOLOGY ORDERABLES Performing Organization Address City/State/[place] [address] (ABNORMAL) Basic Metabolic Panel (non-fasting) (07/10/2017 4:28 AM EST) athologist Signature Glucose Lvl 178 65 - 199 [facility] mg/dL [facility] Comment: [...] [facility] LAB[facility]ORY Estimated GFR 60 >=60 [facility] Comment: The reported eGFR should be multiplied b y 1.2 for patients. The MDRD is not an appropriate measure o f renal function for patients with body mass extremes or in patients with acute kidney failure. http://emploi.us/DHnkdep http://emploi.us/DHMCnkf Specimen Anatomical Collection Method Collection Time Receive d Time (Source) Location / / Volume Laterality Blood specimen 07/10/2017 4:28 AM 017 4:36 (specimen) EST AM EST Resulting Agency Comment Spec In Lab Yuan Webber MD CHEMISTRY ORDERABLES Performing Organization Address City/[facility]/ZIP Code Phon e Number [address] POCT Glucose (07/10/2017 4:26 AM EST) P athologist Signature POC Glucose 176 65 - 199 [facility] mg/dL [facility] Comment: Supplemental [...] City/State/[place] [address] (ABNORMAL) POCT Glucose (07/10/2017 3:06 AM EST) P athologist Signature POC Glucose 204 (H) 65 - 199 [facility] mg/dL [facility] Comment: Supplemental ranges: <140 mg/dL before meals <180 mg/dL all other times of the day Specimen Anatomical Collection Method Collection Time Receive d Time (Source) Location / / Volume Laterality Blood specimen 07/10/2017 3:06 AM 017 3:06 (specimen) EST AM EST Yuan Webber MD POINT OF CARE TEST ORDERABLE S Performing Organization Address City/[facility]/[place] [address] (ABNORMAL) POCT Glucose (07/10/2017 2:10 AM EST) P athologist Signature POC Glucose 203 (H) 65 - 199 [place] mg/dL [facility] Comment: Supplemental ranges: <140 mg/dL before meals <180 mg/dL all other times of the day Specimen Anatomical Collection Method Collection Time Receive d Time (Source) Location / / Volume Laterality Blood specimen 07/10/2017 2:10 AM 017 2:10 (specimen) EST AM EST Yuan Webber MD POINT OF CARE TEST ORDERABLE S Performing Organization Address City/[facility]/[place] [address] POCT Glucose (07/10/2017 1:09 AM EST) P athologist Signature POC Glucose 196 65 - 199 [place]HA[place] mg/dL [facility] Comment: Supplemental [...] City/State/[place] [address] POCT Glucose (07/10/2017 12:10 AM EST) P athologist Signature POC Glucose 173 65 - 199 [place] RY[place] mg/dL [facility] Comment: Supplemental [...] Address City/State/ZIP Code Phon e Number [address] POCT Glucose (07/09/2017 11:01 PM EST) athologist Signature POC Glucose 140 65 - 199 [place] mg/dL [facility] Comment: Supplemental ranges: <140 mg/dL before meals <180 mg/dL all other times of the day Specimen Anatomical Collection Method Collection Time Receive d Time (Source) Location / / Volume Laterality Blood specimen 07/09/2017 11:01 7 (specimen) PM EST 11:01 PM EST Yuan Webber MD POINT OF CARE TEST ORDERABLE S Performing Organization Address City/[facility]/ZIP Code Phon e Number [address] POCT Glucose (07/09/2017 10:05 PM EST) athologist Signature POC Glucose 144 65 - 199 [place]HA[place] mg/dL [facility] Comment: Supplemental [...] City/State/[place] [address] POCT Glucose (07/09/2017 9:31 PM EST) athologist Signature POC Glucose 121 65 - 199 [place] RY[place] mg/dL [facility] Comment: Supplemental [...] Address City/State/ZIP Code Phon e Number [address] POCT Glucose (07/09/2017 9:03 PM EST) athologist Signature POC Glucose 98 65 - 199 [place]HA[place] mg/dL [facility] Comment: Supplemental [...] Address City/State/ZIP Code Phon e Number [address] POCT Glucose (07/09/2017 8:09 PM EST) athologist Signature POC Glucose 117 65 - 199 [place] RY[place] mg/dL [facility] Comment: Supplemental [...] Address City/State/ZIP Code Phon e Number [address] POCT Glucose (07/09/2017 5:40 PM EST) athologist Signature POC Glucose 155 65 - 199 [facility] mg/dL [facility] Comment: Supplemental [...] Address City/State/ZIP Code Phon e Number [address] POCT Glucose (07/09/2017 4:24 PM EST) athologist Signature POC Glucose 164 65 - 199 [place] mg/dL [facility] Comment: Supplemental ranges: <140 mg/dL before meals <180 mg/dL all other times of the day Specimen Anatomical Collection Method Collection Time Receive d Time (Source) Location / / Volume Laterality Blood specimen 07/09/2017 4:24 PM 017 4:24 (specimen) EST PM EST Yuan Webber MD POINT OF CARE TEST ORDERABLE S Performing Organization Address City/[facility]/ZIP Code Phon e Number [address] POCT Glucose (07/09/2017 3:19 PM EST) athologist Signature POC Glucose 166 65 - 199 [place] mg/dL [facility] Comment: Supplemental ranges: <140 mg/dL before meals <180 mg/dL all other times of the day Specimen Anatomical Collection Method Collection Time Receive d Time (Source) Location / / Volume Laterality Blood specimen 07/09/2017 3:19 PM 017 3:19 (specimen) EST PM EST Yuan Webber MD POINT OF CARE TEST ORDERABLE S Performing Organization Address City/[facility]/[place] [address] POCT Glucose (07/09/2017 2:26 PM EST) athologist Signature POC Glucose 179 65 - 199 [place] mg/dL [facility] Comment: Supplemental [...] Address City/State/[place] [address] (ABNORMAL) POCT Glucose (07/09/2017 1:29 PM EST) P athologist Signature POC Glucose 210 (H) 65 - 199 [facility] mg/dL [facility] Comment: Supplemental [...] Address City/State/[place] [address] POCT Glucose (07/09/2017 12:20 PM EST) athologist Signature POC Glucose 172 65 - 199 [facility] mg/dL [facility] Comment: Supplemental [...] Address City/State/[place] [address] POCT Glucose (07/09/2017 11:24 AM EST) athologist Signature POC Glucose 156 65 - 199 [facility] mg/dL [facility] Comment: Supplemental [...] Address City/State/[place] [address] POCT Glucose (07/09/2017 11:11 AM EST) athologist Signature POC Glucose 172 65 - 199 [place] mg/dL [facility] Comment: Supplemental [...] Address City/State/ZIP Code Phon e Number [address] POCT Glucose (07/09/2017 10:08 AM EST) athologist Signature POC Glucose 176 65 - 199 [place]ORYAN mg/dL [facility] Comment: Supplemental [...] Address City/State/ZIP Code Phon e Number [address] POCT Glucose (07/09/2017 8:02 AM EST) athologist Signature POC Glucose 178 65 - 199 [place] mg/dL [facility] Comment: Supplemental [...] City/State/[place] [address] (ABNORMAL) BLOOD GAS 2 ARTERIAL (07/09/2017 5:37 AM EST) Analysis Performed At Patho logist Time Signature pH Art 7.36 7.35 - [facility] 7.45 [facility] pCO2 Art 38 35 - 45 [facility] mmHg [facility] pO2 Art 79 (L) 85 - 104 [facility] LABORATORY HCO3 Art 20.9 20.0 - [facility] 26.0 [facility] mmol/L [facility] BE Art -4.6 (L) -3.0 - 3.0 [facility] mmol/L [facility] Hgb Blood Gas 10.5 (L) 13.7 - [facility] 16.5 gm/dL [facility] O2HB Art 93.8 (L) 94.0 - [facility] 97.0 % [facility] COHB Art 0.3 % [facility] FIO2 Art 40 % [facility] PF Ratio Art 198 [facility] Specimen Anatomical Collection Method Collection Time Receive d Time (Source) Location / / Volume Laterality Blood specimen 07/09/2017 5:37 AM 017 5:37 (specimen) EST AM EST Yuan Webber MD CHEMISTRY ORDERABLES Performing Organization Address City/[facility]/ZIP Code Phon e Number [address] POCT Glucose (07/09/2017 3:27 AM EST) athologist Signature POC Glucose 192 65 - 199 [facility] mg/dL [facility] Comment: Supplemental [...] City/State/[place] [address] (ABNORMAL) Basic Metabolic Panel (non-fasting) (07/09/2017 2:30 AM EST) athologist Signature Glucose Lvl 179 65 - 199 [facility] mg/dL [facility] Comment: [...] or in patients with acute kidney failure. [email or web address] Specimen Anatomical Collection Method Collection Time Receive d Time (Source) Location / / Volume Laterality Blood specimen Venous Draw / 07/09/2017 2:30 AM 2016 2:42 (specimen) Unknown EST AM EST Resulting Agency Comment Spec In Lab Yuan Webber MD CHEMISTRY ORDERABLES Performing Organization Address City/[facility] [place] [address] (ABNORMAL) Potassium (07/09/2017 2:30 AM EST) P athologist Signature Potassium 5.1 (H) 3.5 - 5.0 [facility] mmol/L [facility] Comment: Please [...] MD CHEMISTRY ORDERABLES Performing Organization Address City/[facility]/ZIP [facility] [place] [address] (ABNORMAL) Hemogram (07/09/2017 2:30 AM EST) Analysis Performed At Patho logist Time Signature WBC 12.5 (H) 4.0 - 9.5 [facility] x10(3)/[facility] LABORATORY RBC 3.38 (L) 4.58 - [place] [facility] 5.54 [facility] x10(6)/[facility] LABORATORY Hemoglobin 10.1 (L) 13.7 - [place] [facility] 16.5 gm/dL [facility] Hematocrit 30.3 (L) 40.5 - [place] [facility] 48.5 % [facility] MCV 89.6 82.9 - [facility] 93.1 [facility] LABORATORY MCH 29.9 27.5 - [place] Z[facility] 32.1 pg [facility] MCHC 33.3 32.0 - [place] [facility] 35.7 gm/dL [facility] Platelets 127 (L) 145 - 357 [facility] x10(3)/[facility] LABORATORY RDWSD 49.3 (H) 36.0 - [facility] 45.0 [facility] LABORATORY RDWCV 15.2 (H) 11.4 - [facility] 13.8 % [facility] MPV 9.9 7.6 - 12.9 [facility] LABORATORY nRBC % Auto 0.0 % [facility] nRBC Abs Auto 0.000 0.000 - [place] [facility]ORY[facility] 0.000 [facility] x10(3)/[facility] LABORATORY Specimen Anatomical Collection Method Collection Time Receive d Time (Source) Location / / Volume Laterality Blood specimen 07/09/2017 2:30 AM 017 2:41 (specimen) EST AM EST Resulting Agency Comment Spec In Lab Yuan Webber MD HEMATOLOGY ORDERABLES Performing Organization Address City/State/[place] [address] POCT Glucose (07/09/2017 2:10 AM EST) P athologist Signature POC Glucose 169 65 - 199 [facility] mg/dL [facility] Comment: Supplemental [...] Address City/State/ZIP Code Phon e Number [address] POCT Glucose (07/09/2017 1:01 AM EST) P athologist Signature POC Glucose 173 65 - 199 [place] DAVIS mg/dL [facility] Comment: Supplemental ranges: <140 mg/dL before meals <180 mg/dL all other times of the day Specimen Anatomical Collection Method Collection Time Receive d Time (Source) Location / / Volume Laterality Blood specimen 07/09/2017 1:01 AM 017 1:01 (specimen) EST AM EST Yuan Webber MD POINT OF CARE TEST ORDERABLE S Performing Organization Address City/[facility]/[place] [address] Blood culture (07/09/2017 12:40 AM EST) [facility] gist Method Time Signature Blood Culture No growth K[place]ALINA DAVIS at 5 days. [facility] Specimen Anatomical Collection Method Collection Time Receive d Time (Source) Location / / Volume Laterality Blood specimen STRUCTURE OF RIGHT 07/09/2017 12:40 3:58 (specimen) UPPER LIMB / AM EST AM EST Unknown Resulting Agency Comment Spec In Lab Yuan Webber MD MICROBIOLOGY - BLOOD ORDERAB LES Performing Organization Address City/[facility]/ZIP Code [place] [address] Blood culture (07/09/2017 12:30 AM EST) Patholo gist Method Time Signature Blood Culture No growth K[place]ALINA DAVIS at 5 days. [facility] Specimen Anatomical Collection Method Collection Time Receive d Time (Source) Location / / Volume Laterality Blood specimen STRUCTURE OF LEFT 07/09/2017 12:30 06/25 3:59 (specimen) UPPER LIMB / AM EST AM EST Unknown Resulting Agency Comment Spec In Lab Yuan Webber MD MICROBIOLOGY - BLOOD ORDERAB LES Performing Organization Address City/[facility]/ZIP Code [place] [address] (ABNORMAL) Urinalysis Microscopic Exam (07/09/2017 12:05 AM EST) Analysis Performed At Patho logist Time Signature RBC UA 32 (H) 0 - 3 /HPF [facility] WBC UA 5 (H) 0 - 3 /HPF [facility] Squam Epith UA <1 <=4 /HPF [facility] Hyaline Cast 17 (H) 0 - 2 /LPF [facility] Gran Cast UA 1 (H) <=0 /LPF [facility] Uric Ac Bianca Rare (A) None /HPF [facility] Specimen (Source) Anatomical Collection Method Collection Time Re ceived Time Location / / Volume Laterality Urine specimen 07/09/2017 12:05 7 obtained via AM EST 12:39 AM EST indwelling urinary catheter (specimen) Resulting Agency Comment Spec In Lab Yuan Webber MD URINE ORDERABLES Performing Organization Address City/State/[place] [address] (ABNORMAL) Urinalysis with reflex Culture (07/09/2017 12:05 AM EST) Patholo gist Method Time Signature Glucose UA Negative Negative [facility] mg/dL [facility] Protein UA 30 (A) Negative [facility] mg/dL [facility] Bilirubin UA Negative Negative [facility] mg/dL [facility] Comment: Clinical correlation required [...] [facility] Leukocytes UA Negative Negative [facility] LABORATORY Appearance UA Hazy (A) Clear [facility] Spec [place] UA 1.025 1.002 - 1.030 [facility] Color UA Yellow Yellow [facility] Culture Reflexed No [facility] Specimen (Source) Anatomical Collection Method Collection Time Re ceived Time Location / / Volume Laterality Urine specimen 07/09/2017 12:05 7 obtained via AM EST 12:39 AM EST indwelling urinary catheter (specimen) Resulting Agency Comment Spec In Lab Yuan Webber MD URINE ORDERABLES Performing Organization Address City/[facility]/ZIP Code Phon e Number [address] POCT Glucose (07/08/2017 11:01 PM EST) athologist Signature POC Glucose 191 65 - 199 [facility] mg/dL [facility] Comment: Supplemental ranges: <140 mg/dL before meals <180 mg/dL all other times of the day Specimen Anatomical Collection Method Collection Time Receive d Time (Source) Location / / Volume Laterality Blood specimen 07/08/2017 11:01 7 (specimen) PM EST 11:01 PM EST Yuan Webber MD POINT OF CARE TEST ORDERABLE S Performing Organization Address City/[facility]/ZIP Code Phon e Number [address] POCT Glucose (07/08/2017 10:04 PM EST) athologist Signature POC Glucose 198 65 - 199 [facility] mg/dL [facility] Comment: Supplemental [...] City/State/[place] [address] Prepare Albumin 5% in [...] City/State/[place] [address] POCT Glucose (07/08/2017 8:28 PM EST) athologist Signature POC Glucose 195 65 - 199 [facility] mg/dL [facility] Comment: Supplemental [...] City/State/[place] [address] (ABNORMAL) POCT Glucose (07/08/2017 7:13 PM EST) athologist Signature POC Glucose 220 (H) 65 - 199 [facility] mg/dL [facility] Comment: Supplemental [...] City/State/[place] [address] POCT Glucose (07/08/2017 5:04 PM EST) athologist Signature POC Glucose 147 65 - 199 [facility] mg/dL [facility] Comment: Supplemental [...] Address City/State/Z[place] [address] (ABNORMAL) BLOOD GAS 2 ARTERIAL (07/08/2017 4:13 PM EST) Analysis Performed At Patho logist Time Signature pH Art 7.38 7.35 - [facility] 7.45 [facility] pCO2 Art 36 35 - 45 [facility] mmHg [facility] pO2 Art 91 85 - 104 [facility] LABORATORY HCO3 Art 20.9 20.0 - [facility] 26.0 [facility] mmol/L [facility] BE Art -4.2 (L) -3.0 - 3.0 [facility] mmol/L [facility] Hgb Blood Gas 11.7 (L) 13.7 - [facility] 16.5 gm/dL [facility] O2HB Art 95.1 94.0 - [facility] 97.0 % [facility] COHB Art 0.6 % [facility] FIO2 Art 40 % [facility] PF Ratio Art 228 [facility] Specimen Anatomical Collection Method Collection Time Receive d Time (Source) Location / / Volume Laterality Blood specimen 07/08/2017 4:13 PM 017 4:13 (specimen) EST PM EST Yuan Webber MD CHEMISTRY ORDERABLES Performing Organization Address City/[facility]/ZIP [facility] [place] [address] POCT Glucose (07/08/2017 4:01 PM EST) P athologist Signature POC Glucose 148 65 - 199 [facility] mg/dL [facility] Comment: Supplemental ranges: <140 mg/dL before meals <180 mg/dL all other times of the day Specimen Anatomical Collection Method Collection Time Receive d Time (Source) Location / / Volume Laterality Blood specimen 07/08/2017 4:01 PM 017 4:01 (specimen) EST PM EST Yuan Webber MD POINT OF CARE TEST ORDERABLE S Performing Organization Address City/[facility]/[place] [address] POCT Glucose (07/08/2017 3:21 PM EST) P athologist Signature POC Glucose 118 65 - 199 [facility] mg/dL [facility] Comment: Supplemental [...] Address City/State/ZIP Code Phon e Number [address] POCT Glucose (07/08/2017 2:01 PM EST) athologist Signature POC Glucose 129 65 - 199 [place] R[place] mg/dL [facility] Comment: Supplemental ranges: <140 mg/dL before meals <180 mg/dL all other times of the day Specimen Anatomical Collection Method Collection Time Receive d Time (Source) Location / / Volume Laterality Blood specimen 07/08/2017 2:01 PM 017 2:01 (specimen) EST PM EST Yuan Webber MD POINT OF CARE TEST ORDERABLE S Performing Organization Address City/[facility]/ZIP Code Phon e Number [address] POCT Glucose (07/08/2017 11:53 AM EST) athologist Signature POC Glucose 156 65 - 199 [place] RY[place] mg/dL [facility] Comment: Supplemental ranges: <140 mg/dL before meals <180 mg/dL all other times of the day Specimen Anatomical Collection Method Collection Time Receive d Time (Source) Location / / Volume Laterality Blood specimen 07/08/2017 11:53 7 (specimen) AM EST 11:53 AM EST Yuan Webber MD POINT OF CARE TEST ORDERABLE S Performing Organization Address City/[facility]/ZIP Code Phon e Number [address] POCT Glucose (07/08/2017 11:04 AM EST) athologist Signature POC Glucose 181 65 - 199 [place] RYAN mg/dL [facility] Comment: Supplemental [...] City/State/[place] [address] (ABNORMAL) POCT Glucose (07/08/2017 9:24 AM EST) athologist Signature POC Glucose 203 (H) 65 - 199 [facility] mg/dL [facility] Comment: Supplemental [...] City/State/[place] [address] APTT (07/08/2017 8:40 AM [...] MD HEMATOLOGY ORDERABLES Performing Organization Address City/[facility]/[place] [address] (ABNORMAL) Prothrombin Time (07/08/2017 [...] City/State/[place] [address] (ABNORMAL) POCT Glucose (07/08/2017 7:38 AM EST) athologist Signature POC Glucose 232 (H) 65 - 199 [facility] mg/dL [facility] Comment: Supplemental ranges: <140 mg/dL before meals <180 mg/dL all other times of the day Specimen Anatomical Collection Method Collection Time Receive d Time (Source) Location / / Volume Laterality Blood specimen 07/08/2017 7:38 AM 017 7:38 (specimen) EST AM EST Yuan Webber MD POINT OF CARE TEST ORDERABLE S Performing Organization Address City/[facility]/[place] [address] (ABNORMAL) POCT Glucose (07/08/2017 7:07 AM EST) athologist Signature POC Glucose 234 (H) 65 - 199 [facility] mg/dL [facility] Comment: Supplemental ranges: <140 mg/dL before meals <180 mg/dL all other times of the day Specimen Anatomical Collection Method Collection Time Receive d Time (Source) Location / / Volume Laterality Blood specimen 07/08/2017 7:07 AM 017 7:07 (specimen) EST AM EST Yuan Webber MD POINT OF CARE TEST ORDERABLE S Performing Organization Address City/[facility]/[place] [address] (ABNORMAL) POCT Glucose (07/08/2017 6:04 AM EST) athologist Signature POC Glucose 225 (H) 65 - 199 [facility] mg/dL [facility] Comment: Supplemental [...] City/State/[place] [address] (ABNORMAL) POCT Glucose (07/08/2017 5:31 AM EST) athologist Signature POC Glucose 216 (H) 65 - 199 [facility] mg/dL [facility] Comment: Supplemental [...] City/State/[place] [address] (ABNORMAL) POCT Glucose (07/08/2017 4:52 AM EST) athologist Signature POC Glucose 257 (H) 65 - 199 [facility] mg/dL [facility] Comment: Supplemental [...] City/State/[place] [address] (ABNORMAL) BLOOD GAS 2 ARTERIAL (07/08/2017 4:04 AM EST) Analysis Performed At Patho logist Time Signature pH Art 7.30 (L) 7.35 - [facility] 7.45 [facility] pCO2 Art 41 35 - 45 [facility] mmHg [facility] pO2 Art 83 (L) 85 - 104 [facility] LABORATORY HCO3 Art 19.6 (L) 20.0 - [facility] 26.0 [facility] mmol/L [facility] BE Art -6.8 (L) -3.0 - 3.0 [facility] mmol/L [facility] Hgb Blood Gas 12.2 (L) 13.7 - [facility] 16.5 gm/dL [facility] O2HB Art 93.5 (L) 94.0 - [facility] 97.0 % [facility] COHB Art 0.4 % [facility] [...] [facility] Comment: Noted by instrument installer. FIO2 Art 40 % [facility] PF Ratio Art 208 [facility] Specimen Anatomical Collection Method Collection Time Receive d Time (Source) Location / / Volume Laterality Blood specimen 07/08/2017 4:04 AM 017 4:04 (specimen) EST AM EST Daphne Shahid MD CHEMISTRY ORDERABLES Performing Organization Address City/State/ZIP Code Phon e Number [address] Scan, Peripheral Blood [...] MD HEMATOLOGY ORDERABLES Performing Organization Address City/[facility]/ZIP Code Phon e Number [address] (ABNORMAL) Differential, Automated (07/08/2017 4:00 AM EST) Patholo gist Method Time Signature Neutrophils % 85.4 % [facility] Neutr Abs (ANC) 16.07 (H) 1.70 - [facility] 6.10 [facility] x10(3)/[facility] L LABORATORY Lymphocytes % 3.5 % [facility] Lymphocytes Abs 0.6 (L) 0.9 - 3.2 [facility] x10(3)/[facility] LABORATORY Monocytes % 10.4 % [facility] Monocyte Abs 2.0 (H) 0.3 - 0.9 [facility] x10(3)/[facility] LABORATORY Eosinophils % 0.0 % [facility] Eosinophils Abs 0.0 0.0 - 0.4 [facility] x10(3)/[facility] LABORATORY Basophils % 0.1 % [facility] Basophils Abs 0.0 0.0 - 0.1 [facility] x10(3)/[facility] [...] Gran Abs 0.12 (H) 0.00 - 0.04 x10(3)/[facility] LABORATORY Specimen Anatomical Collection Method Collection Time Receive d Time (Source) Location / / Volume Laterality Blood specimen 07/08/2017 4:00 AM 017 4:09 (specimen) EST AM EST Resulting Agency Comment Spec In Lab Yuan Webber MD HEMATOLOGY ORDERABLES Performing Organization Address City/State/[place] [address] (ABNORMAL) Hemogram (07/08/2017 4:00 AM EST) Analysis Performed At Patho logist Time Signature WBC 18.8 (H) 4.0 - 9.5 [facility] x10(3)/[facility] LABORATORY RBC 4.00 (L) 4.58 - [facility] 5.54 [facility] x10(6)/[facility] LABORATORY Hemoglobin 11.9 (L) 13.7 - [facility] 16.5 gm/dL [facility] Hematocrit 35.9 (L) 40.5 - [facility] 48.5 % [facility] MCV 89.8 82.9 - [facility] 93.1 [facility] LABORATORY MCH 29.8 27.5 - [facility] 32.1 pg [facility] MCHC 33.1 32.0 - [facility] 35.7 gm/dL [facility] Platelets 232 145 - 357 [facility] x10(3)/[facility] LABORATORY RDWSD 47.6 (H) 36.0 - [facility] 45.0 [facility] RDWCV 14.5 (H) 11.4 - [facility] 13.8 % [facility] MPV 9.5 7.6 - 12.9 [facility] LABORATORY nRBC % Auto 0.0 % [facility] nRBC Abs Auto 0.000 0.000 - [facility] 0.000 [facility] x10(3)/[facility] LABORATORY Specimen Anatomical Collection Method Collection Time Receive d Time (Source) Location / / Volume Laterality Blood specimen 07/08/2017 4:00 AM 017 4:09 (specimen) EST AM EST Resulting Agency Comment Spec In Lab Yuan Webber MD HEMATOLOGY ORDERABLES Performing Organization Address City/[facility]/[place] [address] (ABNORMAL) Electrolytes panel (07/08/2017 4:00 AM EST) athologist Signature Sodium 139 135 - 145 [facility] mmol/L [facility] Potassium 4.7 3.5 - 5.0 [facility] mmol/L [facility] Comment: result rechecked-JLK Please [...] MD CHEMISTRY ORDERABLES Performing Organization Address City/[facility]/[place] [address] (ABNORMAL) Cardiac Enzymes (LEB/CGP) (07/08/2017 4:00 AM EST) P athologist Signature Troponin-T 1.88 (H) 0.00 - [facility] 0.00 ng/mL [facility] Comment: [...] additional sample may be indicated. Reference: Third Boomer Definition of Myocardial Infarction. Journal of the [place] [employer] 2012;60:1581-98 CK, Total 413 [...] Address City/State/[place] [address] (ABNORMAL) Glucose, fasting (07/08/2017 4:00 AM EST) athologist Signature Glucose 287 (H) 65 - 99 [facility] Fasting mg/dL [facility] Comment: [...] of Diabetes Mellitus, Position Statement from the [place] [employer]. ??Diabete s Care, Volume 33, Supplement 1, Jul 2009 Specimen Anatomical Collection Method Collection Time Receive d Time (Source) Location / / Volume Laterality Blood specimen 07/08/2017 4:00 AM 017 4:09 (specimen) EST AM EST Resulting Agency Comment Spec In Lab Yuan Webber MD CHEMISTRY ORDERABLES Performing Organization Address City/[facility] Code Phon e Number [address] (ABNORMAL) Creatinine (07/08/2017 4:00 AM EST) Analysis Performed At Patho logist Time Signature Creatinine 1.55 (H) 0.80 - [place] [facility] 1.50 mg/dL [facility] Estimated GFR 44 (L) >=60 [facility] Comment: The reported eGFR should be multiplied b y 1.2 for patients. The MDRD is not an appropriate measure o f renal function for patients with body mass extremes or in patients with acute kidney failure. [email or web address] [email or web address] Specimen Anatomical Collection Method Collection Time Receive d Time (Source) Location / / Volume Laterality Blood specimen 07/08/2017 4:00 AM 017 4:09 (specimen) EST AM EST Resulting Agency Comment Spec In Lab Yuan Webber MD CHEMISTRY ORDERABLES Performing Organization Address City/[facility]/ZIP Code Phon e Number [address] BUN (07/08/2017 4:00 AM EST) P athologist Signature BUN 16 10 - 20 [place] mg/dL [facility] Specimen Anatomical Collection Method Collection Time Receive d Time (Source) Location / / Volume Laterality Blood specimen 07/08/2017 4:00 AM 017 4:09 (specimen) EST AM EST Resulting Agency Comment Spec In Lab Yuan Webber MD CHEMISTRY ORDERABLES Performing Organization Address City/[facility]/ZIP Code Phon e Number [address] (ABNORMAL) POCT Glucose (07/08/2017 3:00 AM EST) P athologist Signature POC Glucose 273 (H) 65 - 199 [facility] Comment: Supplemental ranges: <140 mg/dL before meals <180 mg/dL all other times of the day Specimen Anatomical Collection Method Collection Time Receive d Time (Source) Location / / Volume Laterality Blood specimen 07/08/2017 3:00 AM 017 3:00 (specimen) EST AM EST Daphne Shahid MD POINT OF CARE TEST ORDERABLE S Performing Organization Address City/[facility]/[place] [address] (ABNORMAL) POCT Glucose (07/08/2017 1:57 AM EST) P athologist Signature POC Glucose 288 (H) 65 - 199 [facility] mg/dL [facility] Comment: Supplemental ranges: <140 mg/dL before meals <180 mg/dL all other times of the day Specimen Anatomical Collection Method Collection Time Receive d Time (Source) Location / / Volume Laterality Blood specimen 07/08/2017 1:57 AM 017 1:57 (specimen) EST AM EST Daphne Shahid MD POINT OF CARE TEST ORDERABLE S Performing Organization Address City/[facility]/[place] [address] (ABNORMAL) POCT Glucose (07/08/2017 1:01 AM EST) P athologist Signature POC Glucose 315 (H) 65 - 199 [facility] mg/dL [facility] Comment: Supplemental [...] Address City/State/[place] [address] (ABNORMAL) BLOOD GAS 2 ARTERIAL (07/08/2017 12:09 AM EST) athologist Signature pH Art 7.26 7.35 - [facility] (Critical) 7.45 [facility] Comment: Noted by instrument installer. pCO2 Art 41 35 - 45 mmHg [...] [facility] Comment: Noted by instrument installer. FIO2 Art 40 % [facility] PF Ratio Art 240 [facility] Specimen Anatomical Collection Method Collection Time Receive d Time (Source) Location / / Volume Laterality Blood specimen Arterial Draw / 07/08/2017 12:09 2016 5:31 (specimen) Unknown AM EST AM EST Resulting Agency Comment Spec In Lab Samy Maldonado MD CHEMISTRY ORDERABLES Performing Organization Address City/[facility]/[place] [address] (ABNORMAL) POCT Glucose (07/07/2017 10:56 PM EST) P athologist Signature POC Glucose 292 (H) 65 - 199 [facility] mg/dL [facility] Comment: Supplemental [...] City/State/[place] [address] (ABNORMAL) BLOOD GAS 2 ARTERIAL (07/07/2017 10:04 PM EST) P athologist Signature pH Art 7.22 7.35 - [facility] (Critical) 7.45 [facility] Comment: Noted by instrument installer. pCO2 Art 42 35 - 45 mmHg [...] [facility] Comment: Noted by instrument installer. FIO2 Art 40 % [facility] PF Ratio Art 235 [facility] Specimen Anatomical Collection Method Collection Time Receive d Time (Source) Location / / Volume Laterality Blood specimen 07/07/2017 10:04 7 (specimen) PM EST 10:04 PM EST Daphne Shahid MD CHEMISTRY ORDERABLES Performing Organization Address City/State/[place] [address] (ABNORMAL) Hemoglobin (07/07/2017 10:00 PM EST) athologist Signature Hemoglobin 12.8 (L) 13.7 - [place] 16.5 gm/dL [facility] Specimen Anatomical Collection Method Collection Time Receive d Time (Source) Location / / Volume Laterality Blood specimen 07/07/2017 10:00 7 (specimen) PM EST 10:13 PM EST Resulting Agency Comment Spec In Lab Yuan Webber MD HEMATOLOGY ORDERABLES Performing Organization Address City/[facility] Phon e Number [address] (ABNORMAL) Potassium (07/07/2017 10:00 PM EST) athologist [facility] Potassium 3.4 (L) 3.5 - 5.0 [facility] mmol[facility]L [facility] Comment: Please [...] Organization Address [facility] [place] [address] (ABNORMAL) POCT Glucose (07/07/2017 8:49 PM EST) athologist Signature POC Glucose 241 (H) 65 - 199 [facility] mg/dL [facility] Comment: Supplemental ranges: <140 mg/dL before meals <180 mg/dL all other times of the day Specimen Anatomical Collection Method Collection Time Receive d Time (Source) Location / / Volume Laterality Blood specimen 07/07/2017 8:49 PM 017 8:49 (specimen) EST PM EST Daphne Shahid MD POINT OF CARE TEST ORDERABLE S Performing Organization Address City/[facility]/ZIP Code Phon e Number [address] Prepare Albumin 5% [...] BROWN BLOOD BANK ORDERABLES Performing Organization Address City/[facility]/ZIP Code Phon e Number [address] EKG 12 Lead (07/07/2017 7:17 PM EST) Component Value Ref Range Test Analysis Performed Pathologis t Method Time At Signature Ventricular rate 75 BPM MUSE SYSTEM Atrial Rate 75 BPM MUSE SYSTEM P-R Interval 168 ms MUSE SYSTEM QRS Duration 104 ms MUSE SYSTEM Q-T Interval 462 ms MUSE SYSTEM QTC Calculated 515 ms MUSE SYSTEM (Bezet) Calculated P [place] 52 degrees MUSE SYSTEM Calculated R [place] -40 degrees MUSE SYSTEM Calculated T [place] 39 degrees MUSE SYSTEM INTERPRETATION Normal sinus [...] athologist Signature pH Art 7.21 7.35 - [facility] (Critical) 7.45 [facility] Comment: Noted by instrument installer. pCO2 Art 50 (H) 35 - 45 [...] [facility] Comment: Noted by instrument installer. Please note: Patients with WBC >100,000 may [...] [facility] Comment: Noted by instrument installer. FIO2 Art 100 % [facility] PF Ratio Art 238 [facility] Specimen Anatomical Collection Method Collection Time Receive d Time (Source) Location / / Volume Laterality Blood specimen 07/07/2017 6:57 PM 017 6:57 (specimen) EST PM EST Dpahne Shahid MD CHEMISTRY ORDERABLES Performing Organization Address City/State/[place] [address] (ABNORMAL) BLOOD GAS 2 ARTERIAL (07/07/2017 5:31 PM EST) athologist Signature pH Art 7.29 7.35 - [facility] (Critical) 7.45 [facility] Comment: Noted by instrument installer. pCO2 Art 48 (H) 35 - 45 [...] MD CHEMISTRY ORDERABLES Performing Organization Address City/[facility]/[place] [address] Fibrinogen (07/07/2017 5:30 PM EST) athologist Signature Fibrinogen 224 180 - 510 [facility] mg/dL [facility] Comment: Called by: EJET, Read back by: Monica Campos on/OR16, Date/Time:07/07/17 [...] MD HEMATOLOGY ORDERABLES Performing Organization Address City/[facility]/ZIP Code Phon e Number [address] APTT (07/07/2017 5:30 [...] MD HEMATOLOGY ORDERABLES Performing Organization Address City/[facility]/ZIP [facility] Phon e Number [address] (ABNORMAL) Prothrombin Time (07/07/2017 [...] City/State/ZIP Code Phon e Number [place] [id number] [address] (ABNORMAL) Hemogram (07/07/2017 5:30 PM EST) P athologist Signature WBC 19.6 (H) 4.0 - 9.5 [facility] x10(3)/[facility] LABORATORY RBC 3.08 (L) 4.58 - [facility] 5.54 [facility] x10(6)/[facility] LABORATORY Hemoglobin 9.2 (L) 13.7 - [facility] 16.5 gm/dL [facility] Hematocrit 28.0 (L) 40.5 - [facility] 48.5 % [facility] Comment: This result has [...] LABORATORY MPV 9.5 7.6 - 12.9 fL [facility] nRBC % Auto 0.0 % BARRE [...] Organization Address [facility] Phon e Number [address] Prepare Platelets, Apheresis (07/07/2017 5:00 PM EST) athologist Signature Dispensed? Yes [facility] Specimen Anatomical Collection Method Collection Time Receive d Time (Source) Location / / Volume Laterality Blood specimen 07/07/2017 5:00 PM 017 4:58 (specimen) EST PM EST Daphne Shahid MD BLOOD BANK ORDERABLES Performing Organization Address [facility] Phon e Number [address] Platelet count (07/07/2017 4:55 PM EST) athologist Signature Platelets 177 145 - 357 [facility] x10(3)/[facility] LABORATORY Plat Immature 1.5 0.0 - 7.4 [facility] Comment: Limitation of the Immature Platelet Frac tion (IPF)-May be less reliable when the platelet count is less than 63q881/u L due to statistical imprecision. The IPF [...] in a decreased state of production. References: [employer] The Clinical Value of the Immature Platelet Fraction (IPF) in Cell Recovery Document Number 10-1143 12/2010 [employer] The Role of the Imm ature Platelet Fraction (IPF) in the Differential Diagnosis of Thrombocytopen ia, Document [id number] V012/04/13 P012/06 Specimen Anatomical Collection Method Collection Time Receive d Time (Source) Location / / Volume Laterality Blood specimen 07/07/2017 4:55 PM 017 5:13 (specimen) EST PM EST Resulting Agency Comment Spec In Lab Daphne Shahid MD HEMATOLOGY ORDERABLES Performing Organization Address City/[facility]/[place] [address] (ABNORMAL) Hemoglobin and Hematocrit, blood (07/07/2017 4:55 PM EST) P athologist Signature Hemoglobin 9.1 (L) 13.7 - 16.5 [facility] gm/dL [facility] Comment: This result has [...] MD HEMATOLOGY ORDERABLES Performing Organization Address City/[facility]/[place] [address] (ABNORMAL) BLOOD GAS 2 ARTERIAL (07/07/2017 4:38 PM EST) Analysis Performed At Patho logist Time Signature pH Art 7.37 7.35 - [facility] 7.45 [facility] pCO2 Art 44 35 - 45 [facility] LABORATORY pO2 Art 322 (H) 85 - 104 [facility] [place] [place] HCO3 Art 24.9 20.0 - [facility] 26.0 [facility] mmol/L [facility] BE Art -0.4 -3.0 - 3.0 [facility] mmol/L [facility] Hgb Blood Gas 10.1 (L) 13.7 - [facility] 16.5 gm/dL [facility] O2HB Art 98.7 (H) 94.0 - [facility] 97.0 % [facility] COHB Art 0.1 % [facility] [...] [facility] Comment: Noted by instrument installer. Note: ??Total bilirubin higher than 20 m [...] Address City/State/[place] [address] (ABNORMAL) BLOOD GAS 2 VENOUS (07/07/2017 4:06 PM EST) Analysis Performed At Patho logist Time Signature pH Cody 7.31 (L) 7.32 - [facility] 7.42 [facility] pCO2 Cody 47 41 - 51 [facility] LABORATORY pO2 Cody 53 (H) 25 - 40 [facility] LABORATORY HCO3 Cody 22.7 mmol/L [facility] BE Cody -3.7 mmol/L [facility] Hgb Blood Gas 10.2 (L) 13.7 - [facility] 16.5 gm/dL [facility] O2HB Cody 81.0 % HOLD[facility] [...] [facility] Comment: Noted by instrument installer. Note: ??Total bilirubin higher than 20 m [...] Address City/State/[place] [address] (ABNORMAL) BLOOD GAS 2 ARTERIAL (07/07/2017 4:05 PM EST) Analysis Performed At Patho logist Time Signature pH Art 7.36 7.35 - [facility] 7.45 [facility] pCO2 Art 40 35 - 45 [facility] LABORATORY pO2 Art 282 (H) 85 - 104 [facility] LABORATORY HCO3 Art 22.1 20.0 - [facility] 26.0 [facility] mmol/L [facility] BE Art -3.4 (L) -3.0 - 3.0 [facility] mmol/L [facility] Hgb Blood Gas 10.2 (L) 13.7 - [facility] 16.5 gm/dL [facility] O2HB Art 98.4 (H) 94.0 - [facility] 97.0 % [facility] COHB Art 0.3 % HOLD[facility] [...] [facility] Comment: Noted by instrument installer. Note: ??Total bilirubin higher than 20 m [...] Address City/State/[place] [address] (ABNORMAL) BLOOD GAS 2 ARTERIAL (07/07/2017 2:29 PM EST) Analysis Performed At Patho logist Time Signature pH Art 7.43 7.35 - [facility] 7.45 [facility] pCO2 Art 36 35 - 45 [facility] LABORATORY pO2 Art 221 (H) 85 - 104 [facility] LABORATORY HCO3 Art 23.2 20.0 - [facility] 26.0 [facility] mmol/L [facility] BE Art -1.2 -3.0 - 3.0 [facility] mmol/L [facility] Hgb Blood Gas 13.9 13.7 - [facility] 16.5 gm/dL [facility] O2HB Art 97.8 (H) 94.0 - [facility] 97.0 % [facility] COHB Art 1.1 % HOLD[facility] [...] MD CHEMISTRY ORDERABLES Performing Organization Address City/[facility] [place] [address] Prepare Coag Factors (Non-Hemophilia) (07/07/2017 1:25 PM EST) P athologist Signature Dispensed? Yes [facility] Specimen Anatomical Collection Method Collection Time Receive d Time (Source) Location / / Volume Laterality Blood specimen 07/07/2017 1:25 PM 017 1:21 (specimen) EST PM EST Daphne Shahid MD BLOOD BANK ORDERABLES Performing Organization Address City/[facility]/[place] [address] Prepare RBC (07/07/2017 1:10 PM EST) P athologist Signature Dispensed? Yes [facility] Specimen Anatomical Collection Method Collection Time Receive d Time (Source) Location / / Volume Laterality Blood specimen 07/07/2017 1:10 PM 017 1:05 (specimen) EST PM EST Daphne Shahid MD BLOOD BANK ORDERABLES Performing Organization Address City/[facility]/[place] [address] POCT Glucose (07/07/2017 11:56 AM EST) athologist Signature POC Glucose 188 65 - 199 [facility] mg/dL [facility] Comment: Supplemental [...] Address City/State/ZIP Code Phon e Number [address] POCT Glucose (07/07/2017 11:05 AM EST) athologist Signature POC Glucose 168 65 - 199 [facility] RYAN mg/dL [facility] Comment: Supplemental [...] City/State/[place] [address] POCT Glucose (07/07/2017 10:02 AM EST) athologist Signature POC Glucose 191 65 - 199 [place] [facility] mg/dL [facility] Comment: Supplemental [...] City/State/[place] [address] POCT Glucose (07/07/2017 7:53 AM EST) athologist Signature POC Glucose 178 65 - 199 [facility] RYAN mg/dL [facility] Comment: Supplemental [...] City/State/[place] [address] POCT Glucose (07/07/2017 7:03 AM EST) athologist Signature POC Glucose 188 65 - 199 [facility] RYAN mg/dL [facility] Comment: Supplemental [...] City/State/[place] [address] (ABNORMAL) POCT Glucose (07/07/2017 6:17 AM EST) athologist Signature POC Glucose 207 (H) 65 - 199 [facility] RYAN mg/dL [facility] Comment: Supplemental [...] City/State/[place] [address] Differential, Automated (07/07/2017 5:15 AM EST) P athologist Signature Neutrophils % 69.7 % [facility] Neutr Abs (ANC) 5.32 1.70 - [facility] 6.10 [facility] x10(3)/[facility] LABORATORY Lymphocytes % 16.3 % [facility] Lymphocytes Abs 1.2 0.9 - 3.2 [facility] x10(3)/[facility] LABORATORY Monocytes % 10.5 % [facility] Monocyte Abs 0.8 0.3 - 0.9 [facility] x10(3)/[facility] LABORATORY Eosinophils % 2.5 % [facility] Eosinophils Abs 0.2 0.0 - 0.4 [facility] x10(3)/[facility] LABORATORY Basophils % 0.7 % [facility] Basophils Abs 0.0 0.0 - 0.1 [facility] x10(3)/[facility] LABORATORY Immature Gran % 0.30 % HOLD[facility] [...] Melisa Gran Abs 0.02 0.00 - 0.04 x10(3)/[facility]ORATORY Specimen Anatomical Collection Method Collection Time Receive d Time (Source) Location / / Volume Laterality Blood specimen 07/07/2017 5:15 AM 017 5:34 (specimen) EST AM EST Resulting Agency Comment Spec In Lab Daphne Shahid MD HEMATOLOGY ORDERABLES Performing Organization Address City/State/[place] [address] (ABNORMAL) Hemogram (07/07/2017 5:15 AM EST) Analysis Performed At Patho logist Time Signature WBC 7.6 4.0 - 9.5 [facility] x10(3)/[facility] LABORATORY RBC 4.82 4.58 - [facility] 5.54 [facility] x10(6)/[facility] LABORATORY Hemoglobin 14.4 13.7 - [facility] 16.5 gm/dL [facility] Hematocrit 42.1 40.5 - [facility] 48.5 % [facility] MCV 87.3 82.9 - [facility] 93.1 [facility] LABORATORY MCH 29.9 27.5 - [facility] 32.1 pg [facility] MCHC 34.2 32.0 - [facility] 35.7 gm/dL [facility] Platelets 188 145 - 357 [facility] x10(3)/[facility] LABORATORY RDWSD 45.1 (H) 36.0 - [facility] 45.0 [facility] LABORATORY RDWCV 14.3 (H) 11.4 - [facility] 13.8 % [facility] MPV 9.4 7.6 - 12.9 [facility] LABORATORY nRBC % Auto 0.0 % [facility] nRBC Abs Auto 0.000 0.000 - [facility] 0.000 [facility] x10(3)/[facility] LABORATORY Specimen Anatomical Collection Method Collection Time Receive d Time (Source) Location / / Volume Laterality Blood specimen 07/07/2017 5:15 AM 017 5:34 (specimen) EST AM EST Resulting Agency Comment Spec In Lab Daphne Shahid MD HEMATOLOGY ORDERABLES Performing Organization Address City/State/[place] [address] (ABNORMAL) APTT (07/07/2017 5:15 [...] Address City/State/ZIP Code Phon e Number [address] Magnesium (07/07/2017 5:15 AM EST) athologist Signature Magnesium 0.94 0.69 - 1.07 [facility] mmol/L [facility] Specimen Anatomical Collection Method Collection Time Receive d Time (Source) Location / / Volume Laterality Blood specimen 07/07/2017 5:15 AM 017 5:34 (specimen) EST AM EST Resulting Agency Comment Spec In Lab Daphne Shahid MD CHEMISTRY ORDERABLES Performing Organization Address City/[facility] Code Phon e Number [address] (ABNORMAL) Basic Metabolic Panel (non-fasting) (07/07/2017 5:15 AM EST) athologist Signature Glucose Lvl 203 (H) 65 - 199 [facility] mg/dL [facility] Comment: [...] or in patients with acute kidney failure. [email or web address] [email or web address] Specimen Anatomical Collection Method Collection Time Receive d Time (Source) Location / / Volume Laterality Blood specimen 07/07/2017 5:15 AM 017 5:34 (specimen) EST AM EST Resulting Agency Comment Spec In Lab Daphne Shahid MD CHEMISTRY ORDERABLES Performing Organization Address City/State/[place] [address] (ABNORMAL) Cardiac Enzymes (LEB/CGP) (07/07/2017 5:15 AM EST) P athologist Signature Troponin-T 2.07 (H) 0.00 [facility]/mL [facility] Comment: [...] additional sample may be indicated. Reference: Third Boomer Definition of Myocardial Infarction. Journal of the [place] [employer] 2012;60:1581-98 CK, Total 88 0 - 200 unit/L [facility] Specimen Anatomical Collection Method Collection Time Receive d Time (Source) Location / / Volume Laterality Blood specimen 07/07/2017 5:15 AM 017 5:34 (specimen) EST AM EST Resulting Agency Comment Spec In Lab Daphne Shahid MD CHEMISTRY ORDERABLES Performing Organization Address City/State/ZIP Code Phon e Number [address] POCT Glucose (07/07/2017 5:01 AM EST) athologist Signature POC Glucose 182 65 - 199 [facility] Comment: Supplemental [...] Address City/State/ZIP Code Phon e Number [address] POCT Glucose (07/07/2017 4:08 AM EST) athologist Signature POC Glucose 199 65 - 199 [facility]dL [facility] Comment: Supplemental [...] Address City/State/ZIP Code Phon e Number [address] POCT Glucose (07/07/2017 3:03 AM EST) athologist Signature POC Glucose 188 65 - 199 [facility] mg/dL [facility] Comment: Supplemental ranges: <140 mg/dL before meals <180 mg/dL all other times of the day Specimen Anatomical Collection Method Collection Time Receive d Time (Source) Location / / Volume Laterality Blood specimen 07/07/2017 3:03 AM 017 3:03 (specimen) EST AM EST Daphne Shahid MD POINT OF CARE TEST ORDERABLE S Performing Organization Address City/[facility]/[place] [address] (ABNORMAL) POCT Glucose (07/07/2017 2:08 AM EST) athologist Signature POC Glucose 200 (H) 65 - 199 [facility] mg/dL [facility] Comment: Supplemental ranges: <140 mg/dL before meals <180 mg/dL all other times of the day Specimen Anatomical Collection Method Collection Time Receive d Time (Source) Location / / Volume Laterality Blood specimen 07/07/2017 2:08 AM 017 2:08 (specimen) EST AM EST Daphne Shahid MD POINT OF CARE TEST ORDERABLE S Performing Organization Address City/[facility]/[place] [address] (ABNORMAL) POCT Glucose (07/07/2017 1:31 AM EST) athologist Signature POC Glucose 209 (H) 65 - 199 [facility] mg/dL [facility] Comment: Supplemental ranges: <140 mg/dL before meals <180 mg/dL all other times of the day Specimen Anatomical Collection Method Collection Time Receive d Time (Source) Location / / Volume Laterality Blood specimen 07/07/2017 1:31 AM 017 1:31 (specimen) EST AM EST Daphne Shahid MD POINT OF CARE TEST ORDERABLE S Performing Organization Address City/[facility]/[place] [address] XR Chest PA or [...] POC Glucose 161 65 - 199 [facility] mg/dL [facility] Comment: Supplemental [...] Address City/State/[place] [address] (ABNORMAL) APTT (07/07/2017 12:00 [...] Address City/State/ZIP Code Phon e Number [address] POCT Glucose (07/06/2017 9:55 PM EST) athologist Signature POC Glucose 109 65 - 199 [place] mg/dL [facility] Comment: Supplemental ranges: <140 mg/dL before meals <180 mg/dL all other times of the day Specimen Anatomical Collection Method Collection Time Receive d Time (Source) Location / / Volume Laterality Blood specimen 07/06/2017 9:55 PM 017 9:55 (specimen) EST PM EST Daphne Shahid MD POINT OF CARE TEST ORDERABLE S Performing Organization Address City/[facility]/ZIP Code Phon e Number [address] POCT Glucose (07/06/2017 9:04 PM EST) athologist Signature POC Glucose 120 65 - 199 [place] mg/dL [facility] Comment: Supplemental ranges: <140 mg/dL before meals <180 mg/dL all other times of the day Specimen Anatomical Collection Method Collection Time Receive d Time (Source) Location / / Volume Laterality Blood specimen 07/06/2017 9:04 PM 017 9:04 (specimen) EST PM EST Daphne Shahid MD POINT OF CARE TEST ORDERABLE S Performing Organization Address City/[facility]/ZIP Code Phon e Number [address] POCT Glucose (07/06/2017 7:45 PM EST) athologist Signature POC Glucose 158 65 - 199 [place] mg/dL [facility] Comment: Supplemental ranges: <140 mg/dL before meals <180 mg/dL all other times of the day Specimen Anatomical Collection Method Collection Time Receive d Time (Source) Location / / Volume Laterality Blood specimen 07/06/2017 7:45 PM 017 7:45 (specimen) EST PM EST Daphne Shahid MD POINT OF CARE TEST ORDERABLE S Performing Organization Address City/[facility]/[place] [address] Potassium (07/06/2017 7:40 PM EST) athologist Signature Potassium 3.9 3.5 - 5.0 [facility] mmol/L [facility] Comment: Please [...] MD CHEMISTRY ORDERABLES Performing Organization Address City/[facility]/[place] [address] (ABNORMAL) Cardiac Enzymes (LEB/CGP) (07/06/2017 7:40 PM EST) athologist Signature Troponin-T 2.27 (H) 0.00 - [place] 0.00 ng/mL [facility] Comment: [...] additional sample may be indicated. Reference: Third Boomer Definition of Myocardial Infarction. Journal of the [place] [employer] 2012;60:1581-98 CK, Total 93 0 - 200 unit/L [facility] Specimen Anatomical Collection Method Collection Time Receive d Time (Source) Location / / Volume Laterality Blood specimen 07/06/2017 7:40 PM 017 7:52 (specimen) EST PM EST Resulting Agency Comment Spec In Lab Daphne Shahid MD CHEMISTRY ORDERABLES Performing Organization Address City/[facility]/[place] [address] (ABNORMAL) POCT Glucose (07/06/2017 7:13 PM EST) P athologist Signature POC Glucose 200 (H) 65 - 199 [facility] mg/dL [facility] Comment: Supplemental ranges: <140 mg/dL before meals <180 mg/dL all other times of the day Specimen Anatomical Collection Method Collection Time Receive d Time (Source) Location / / Volume Laterality Blood specimen 07/06/2017 7:13 PM 017 7:13 (specimen) EST PM EST Daphne Shahid MD POINT OF CARE TEST ORDERABLE S Performing Organization Address City/[facility]/[place] [address] (ABNORMAL) APTT (07/06/2017 6:15 [...] MD HEMATOLOGY ORDERABLES Performing Organization Address City/[facility]/[place] [address] (ABNORMAL) POCT Glucose (07/06/2017 6:03 PM EST) athologist Signature POC Glucose 236 (H) 65 - 199 [place] mg/dL [facility] Comment: Supplemental ranges: <140 mg/dL before meals <180 mg/dL all other times of the day Specimen Anatomical Collection Method Collection Time Receive d Time (Source) Location / / Volume Laterality Blood specimen 07/06/2017 6:03 PM 017 6:03 (specimen) EST PM EST Daphne Shahid MD POINT OF CARE TEST ORDERABLE S Performing Organization Address City/[facility]/[place] [address] (ABNORMAL) POCT Glucose (07/06/2017 5:01 PM EST) athologist Signature POC Glucose 235 (H) 65 - 199 [place] mg/dL [facility] Comment: Supplemental ranges: <140 mg/dL before meals <180 mg/dL all other times of the day Specimen Anatomical Collection Method Collection Time Receive d Time (Source) Location / / Volume Laterality Blood specimen 07/06/2017 5:01 PM 017 5:01 (specimen) EST PM EST Daphne Shahid MD POINT OF CARE TEST ORDERABLE S Performing Organization Address City/[facility]/[place] [address] (ABNORMAL) POCT Glucose (07/06/2017 4:06 PM EST) athologist Signature POC Glucose 202 (H) 65 - 199 [place] mg/dL [facility] Comment: Supplemental [...] Address City/State/ZIP Code Phon e Number [address] POCT Glucose (07/06/2017 2:59 PM EST) athologist Signature POC Glucose 178 65 - 199 [facility] mg/dL [facility] Comment: Supplemental ranges: <140 mg/dL before meals <180 mg/dL all other times of the day Specimen Anatomical Collection Method Collection Time Receive d Time (Source) Location / / Volume Laterality Blood specimen 07/06/2017 2:59 PM 017 2:59 (specimen) EST PM EST Daphne Shahid MD POINT OF CARE TEST ORDERABLE S Performing Organization Address City/[facility]/[place] [address] (ABNORMAL) Cardiac Enzymes (LEB/CGP) (07/06/2017 2:10 PM EST) athologist Signature Troponin-T 2.34 (H) 0.00 - [facility] 0.00 ng/mL [facility] Comment: [...] additional sample may be indicated. Reference: Third Boomer Definition of Myocardial Infarction. Journal of the [place] [employer] 2012;60:1581-98 CK, Total 101 0 - 200 unit/L [facility] Specimen Anatomical Collection Method Collection Time Receive d Time (Source) Location / / Volume Laterality Blood specimen 07/06/2017 2:10 PM 017 2:26 (specimen) EST PM EST Resulting Agency Comment Spec In Lab Daphne Shahid MD CHEMISTRY ORDERABLES Performing Organization Address [facility] Phon e Number [address] POCT Glucose (07/06/2017 2:08 PM EST) P athologist Signature POC Glucose 192 65 - 199 [facility] mg/dL [facility] Comment: Supplemental ranges: <140 mg/dL before meals <180 mg/dL all other times of the day Specimen Anatomical Collection Method Collection Time Receive d Time (Source) Location / / Volume Laterality Blood specimen 07/06/2017 2:08 PM 017 2:08 (specimen) EST PM EST Daphne Shahid MD POINT OF CARE TEST ORDERABLE S Performing Organization Address City/[facility]/[place] [address] POCT Glucose (07/06/2017 1:04 PM EST) P athologist Signature POC Glucose 162 65 - 199 [facility] mg/dL [facility] Comment: Supplemental ranges: <140 mg/dL before meals <180 mg/dL all other times of the day Specimen Anatomical Collection Method Collection Time Receive d Time (Source) Location / / Volume Laterality Blood specimen 07/06/2017 1:04 PM 017 1:04 (specimen) EST PM EST Daphne Shahid MD POINT OF CARE TEST ORDERABLE S Performing Organization Address City/[facility]/ZIP [place] [address] [facility] [address] POCT Glucose (07/06/2017 12:05 PM EST) P athologist Signature POC Glucose 196 65 - 199 [facility] mg/dL [facility] Comment: Supplemental ranges: <140 mg/dL before meals <180 mg/dL all other times of the day Specimen Anatomical Collection Method Collection Time Receive d Time (Source) Location / / Volume Laterality Blood specimen 07/06/2017 12:05 7 (specimen) PM EST 12:05 PM EST Daphne Shahid MD POINT OF CARE TEST ORDERABLE S Performing Organization Address City/[facility]/ZIP Code Phon e Number [address] EKG 12 Lead (07/06/2017 12:00 PM EST) Component Value Ref Range Test Analysis Performed Pathologis t Method Time At Signature Ventricular rate 91 BPM MUSE SYSTEM Atrial Rate 91 BPM MUSE SYSTEM P-R Interval 140 ms MUSE SYSTEM QRS Duration 94 ms MUSE SYSTEM Q-T Interval 394 ms MUSE SYSTEM QTC Calculated 484 ms MUSE SYSTEM (Bezet) Calculated P [place] 36 degrees MUSE SYSTEM Calculated R [place] -19 degrees MUSE SYSTEM Calculated T [place] 104 degrees MUSE SYSTEM INTERPRETATION Normal sinus rhythm MUSE SYSTEM 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) ST & T wave abnormality, consider lateral ischemia Abnormal ECG When compared with ECG of 05-JUL-2017 20:39, No significant change was found Confirmed by MD Luci, Taurus Braun ([id number]) on 07/06/2017 5:07:33 PM Specimen Anatomical Collection [...] BLOOD BANK ORDERABLES Performing Organization Address City/[facility]/[place] [address] Antibody screen (07/06/2017 12:00 PM EST) Patholo gist Method Time Signature Ab Screen Negative [facility] LABORATORY Expires at 07/09/2017 [facility] [id number] on: [facility] Specimen Anatomical Collection Method Collection Time Receive d Time (Source) Location / / Volume Laterality Blood specimen 07/06/2017 12:00 7 (specimen) PM EST 12:24 PM EST Resulting Agency Comment Spec In Lab Daphne Shahid MD BLOOD BANK ORDERABLES Performing Organization Address City/[facility]/[place] [address] ABO/Rh Typing (07/06/2017 12:00 PM EST) P athologist Signature ABORh Type O Pos [facility] Specimen Anatomical Collection Method Collection Time Receive d Time (Source) Location / / Volume Laterality Blood specimen 07/06/2017 12:00 7 (specimen) PM EST 12:24 PM EST Resulting Agency Comment Spec In Lab Daphne Shahid MD BLOOD BANK ORDERABLES Performing Organization Address City/[facility]/[place] [address] Prothrombin Time (07/06/2017 11:24 [...] MD HEMATOLOGY ORDERABLES Performing Organization Address City/[facility]/ZIP Code Phon e Number [address] (ABNORMAL) APTT (07/06/2017 [...] MD HEMATOLOGY ORDERABLES Performing Organization Address City/[facility]/[place] [address] POCT Glucose (07/06/2017 11:02 AM EST) P athologist Signature POC Glucose 187 65 - 199 [facility] mg/dL [facility] Comment: Supplemental ranges: <140 mg/dL before meals <180 mg/dL all other times of the day Specimen Anatomical Collection Method Collection Time Receive d Time (Source) Location / / Volume Laterality Blood specimen 07/06/2017 11:02 7 (specimen) AM EST 11:02 AM EST Daphne Shahid MD POINT OF CARE TEST ORDERABLE S Performing Organization Address City/[facility]/[place] [address] POCT Glucose (07/06/2017 10:18 AM EST) P athologist Signature POC Glucose 193 65 - 199 [place] mg/dL [facility] Comment: Supplemental [...] City/State/[place] [address] POCT Glucose (07/06/2017 9:25 AM EST) athologist Signature POC Glucose 182 65 - 199 [facility] mg/dL [facility] Comment: Supplemental [...] City/State/[place] [address] (ABNORMAL) Cardiac Enzymes (LEB/CGP) (07/06/2017 8:10 AM EST) athologist [employer] Troponin-T 2.26 (H) 0.00 - [place] 0.00 ng/mL [facility] Comment: [...] additional sample may be indicated. Reference: Third Boomer Definition of Myocardial Infarction. Journal of the [place] [employer] 2012;60:1581-98 CK, Total 124 0 - 200 unit/L [facility] Specimen Anatomical Collection Method Collection Time Receive d Time (Source) Location / / Volume Laterality Blood specimen 07/06/2017 8:10 AM 017 8:23 (specimen) EST AM EST Resulting Agency Comment Spec In Lab Daphne Shahid MD CHEMISTRY ORDERABLES Performing Organization Address City/[facility]/ZIP Code Phon e Number [address] Magnesium (07/06/2017 8:10 AM EST) P athologist Signature Magnesium 0.84 0.69 - 1.07 [facility] mmol/L [facility] Specimen Anatomical Collection Method Collection Time Receive d Time (Source) Location / / Volume Laterality Blood specimen 07/06/2017 8:10 AM 017 8:21 (specimen) EST AM EST Resulting Agency Comment Spec In Lab Daphne Shahid MD CHEMISTRY ORDERABLES Performing Organization Address City/[facility] [place] [address] (ABNORMAL) Basic Metabolic Panel (non-fasting) (07/06/2017 8:10 AM EST) P athologist Signature Glucose Lvl 199 65 - 199 [facility] mg/dL [facility] Comment: [...] or in patients with acute kidney failure. http://emploi.us/DHnkdep http://emploi.us/DHnkf Specimen Anatomical Collection Method Collection Time Receive d Time (Source) Location / / Volume Laterality Blood specimen 07/06/2017 8:10 AM 017 8:21 (specimen) EST AM EST Resulting Agency Comment Spec In Lab Daphne Shahid MD CHEMISTRY ORDERABLES Performing Organization Address City/[facility]/[place] [address] POCT Glucose (07/06/2017 7:34 AM EST) P athologist Signature POC Glucose 198 65 - 199 [facility] mg/dL [facility] Comment: Supplemental ranges: <140 mg/dL before meals <180 mg/dL all other times of the day Specimen Anatomical Collection Method Collection Time Receive d Time (Source) Location / / Volume Laterality Blood specimen 07/06/2017 7:34 AM 017 7:34 (specimen) EST AM EST Daphne Shahid MD POINT OF CARE TEST ORDERABLE S Performing Organization Address City/[facility]/[place] [address] POCT Glucose (07/06/2017 7:03 AM EST) P athologist Signature POC Glucose 181 65 - 199 [place] mg/dL [facility] Comment: Supplemental [...] Address City/State/ZIP Code Phon e Number [address] XR Chest PA or [...] Glucose 172 65 - 199 [facility] mg/dL [facility] Comment: Supplemental [...] City/State/[place] [address] POCT Glucose (07/06/2017 5:08 AM EST) athologist Signature POC Glucose 154 65 - 199 [facility] mg/dL [facility] Comment: Supplemental [...] City/State/[place] [address] POCT Glucose (07/06/2017 4:05 AM EST) athologist Signature POC Glucose 142 65 - 199 [facility] mg/dL [facility] Comment: Supplemental ranges: <140 mg/dL before meals <180 mg/dL all other times of the day Specimen Anatomical Collection Method Collection Time Receive d Time (Source) Location / / Volume Laterality Blood specimen 07/06/2017 4:05 AM 017 4:05 (specimen) EST AM EST Daphne Shahid MD POINT OF CARE TEST ORDERABLE S Performing Organization Address City/[facility]/ZIP Code Phon e Number [address] POCT Glucose (07/06/2017 3:00 AM EST) athologist [facility] POC Glucose 116 65 - 199 [facility] mg/dL [facility] Comment: Supplemental ranges: <140 mg/dL before meals <180 mg/dL all other times of the day Specimen Anatomical Collection Method Collection Time Receive d Time (Source) Location / / Volume Laterality Blood specimen 07/06/2017 3:00 AM 017 3:00 (specimen) EST AM EST Daphne Shahid MD POINT OF CARE TEST ORDERABLE S Performing Organization Address City/[facility]/ZIP Code Phon e Number [address] Potassium (07/06/2017 2:20 AM EST) athologist [facility] Potassium 3.9 3.5 - 5.0 [facility] mmol/L [facility] Comment: Please [...] MD CHEMISTRY ORDERABLES Performing Organization Address City/[facility]/ZIP Code Phon e Number [address] Differential, Automated (07/06/2017 2:20 AM EST) athologist [facility] Neutrophils % 72.9 % [facility] Neutr Abs (ANC) 5.53 1.70 - [facility] 6.10 [facility] x10(3)/[facility] LABORATORY Lymphocytes % 16.4 % [facility] Lymphocytes Abs 1.2 0.9 - 3.2 [facility] x10(3)/[facility] LABORATORY Monocytes % 9.4 % [facility] Monocyte Abs 0.7 0.3 - 0.9 [facility] x10(3)/[facility] LABORATORY Eosinophils % 0.5 % [facility] Eosinophils Abs 0.0 0.0 - 0.4 [facility] x10(3)/[facility] LABORATORY Basophils % 0.4 % [facility] Basophils Abs 0.0 0.0 - 0.1 [facility] x10(3)/[facility] LABORATORY Immature Gran % 0.40 % [facility] [...] 0.00 - 0.04 x10(3)/[facility] LABORATORY Specimen Anatomical Collection Method Collection Time Receive d Time (Source) Location / / Volume Laterality Blood specimen 07/06/2017 2:20 AM 017 2:33 (specimen) EST AM EST Resulting Agency Comment Spec In Lab Daphne Shahid MD HEMATOLOGY ORDERABLES Performing Organization Address City/State/[place] [address] (ABNORMAL) Hemogram (07/06/2017 2:20 AM EST) Analysis Performed At Patho logist Time Signature WBC 7.6 4.0 - 9.5 [facility] x10(3)/[facility] LABORATORY RBC 4.52 (L) 4.58 - [facility] 5.54 [facility] x10(6)/[facility] LABORATORY Hemoglobin 13.4 (L) 13.7 - [place] [facility] 16.5 gm/dL [facility] Hematocrit 39.7 (L) 40.5 - [place] 48.5 % [facility] MCV 87.8 82.9 - [facility] 93.1 [facility] LABORATORY MCH 29.6 27.5 - [place] [facility] 32.1 pg [facility] MCHC 33.8 32.0 - [place] 35.7 gm/dL [facility] Platelets 189 145 - 357 [facility] x10(3)/[facility] LABORATORY RDWSD 45.6 (H) 36.0 - [facility] 45.0 [facility] LABORATORY RDWCV 14.3 (H) 11.4 - [facility] 13.8 % [facility] MPV 9.1 7.6 - 12.9 [facility] LABORATORY nRBC % Auto 0.0 % [facility] nRBC Abs Auto 0.000 0.000 - [facility] 0.000 [facility] x10(3)/[facility] LABORATORY Specimen Anatomical Collection Method Collection Time Receive d Time (Source) Location / / Volume Laterality Blood specimen 07/06/2017 2:20 AM 017 2:33 (specimen) EST AM EST Resulting Agency Comment Spec In Lab Daphne Shahid MD HEMATOLOGY ORDERABLES Performing Organization Address City/State/[place] [address] (ABNORMAL) APTT (07/06/2017 2:20 [...] Address City/State/ZIP Code Phon e Number [address] POCT Glucose (07/06/2017 2:20 AM EST) athologist Signature POC Glucose 115 65 - 199 [facility] mg/dL [facility] Comment: Supplemental [...] City/State/[place] [address] (ABNORMAL) Cardiac Enzymes (LEB/CGP) (07/06/2017 2:20 AM EST) athologist Signature Troponin-T 2.13 (H) 0.00 - [place] 0.00 ng/mL [facility] Comment: [...] additional sample may be indicated. Reference: Third Boomer Definition of Myocardial Infarction. Journal of the [place] College [employer] 2012;60:1581-98 CK, Total 129 0 - 200 unit/L [facility] Specimen Anatomical Collection Method Collection Time Receive d Time (Source) Location / / Volume Laterality Blood specimen 07/06/2017 2:20 AM 017 2:33 (specimen) EST AM EST Resulting Agency Comment Spec In Lab Daphne Shahid MD CHEMISTRY ORDERABLES Performing Organization Address City/State/[place] [address] (ABNORMAL) Hemoglobin A1c (07/06/2017 [...] with hemoglobinopathies. Additional resources are available on [facility] website. Macario HAMMOND, Ruthann J, Deysi R, et al. ??Tr anslating the A1C assay into estimated average glucose values. ??Diabetes Care 2008:31(8):2531-1980. Specimen Anatomical Collection Method Collection Time Receive d Time (Source) Location / / Volume Laterality Blood specimen 07/06/2017 2:20 AM 017 2:34 (specimen) EST AM EST Resulting Agency Comment Spec In Lab Daphne Shahid MD CHEMISTRY ORDERABLES Performing Organization Address City/State/[place] [address] (ABNORMAL) Lipid Panel (07/06/2017 2:20 AM EST) [facility] Method Time Signature Chol, Total 150 <=239 [place] mg/dL [facility]ORATORY Triglycerides 129 <=199 [facility] mg/dL [facility] LABORATORY HDL 32 (L) >=40 [facility] mg/dL [facility]OR[facility]ORY LDL Cholesterol 92 <=190 [place] mg/dL [facility]ORY Chol/HDL Ratio 4.7 ratio [facility] Lipid See Note [place] Interpretation [facility] Comment: Lipid management should be guided by a p atient? s ASCVD risk, goals and preferences. ACC/AHA Guidelines recommend high intens ity statin if clinical ASCVD or LDL greater than or equal to 190 mg/dL. http://tinyurl.com/WSU-BHR-Hutspybhy Adults aged 40-75 with LDL 70-189 mg/dL should have their 10 year ASCVD risk estimated with the ACC/AHA ASCVD risk es timator http://tools.acc.org/KRZVC-Wqff-Cgosvfjo r/ Statin should be discussed if risk [...] MD CHEMISTRY ORDERABLES Performing Organization Address City/[facility]/ZIP Code Phon e Number [address] POCT Glucose (07/06/2017 1:09 AM EST) athologist Signature POC Glucose 121 65 - 199 [facility] mg/dL [facility] Comment: Supplemental ranges: <140 mg/dL before meals <180 mg/dL all other times of the day Specimen Anatomical Collection Method Collection Time Receive d Time (Source) Location / / Volume Laterality Blood specimen 07/06/2017 1:09 AM 017 1:09 (specimen) EST AM EST Daphne Shahid MD POINT OF CARE TEST ORDERABLE S Performing Organization Address City/[facility]/[place] [address] POCT Glucose (07/06/2017 12:06 AM EST) athologist Signature POC Glucose 147 65 - 199 [facility] mg/dL [facility] Comment: Supplemental [...] City/State/[place] [address] (ABNORMAL) POCT Glucose (07/05/2017 10:56 PM EST) athologist Signature POC Glucose 200 (H) 65 - 199 [facility] mg/dL [facility] Comment: Supplemental [...] City/State/[place] [address] (ABNORMAL) POCT Glucose (07/05/2017 10:05 PM EST) athologist Signature POC Glucose 225 (H) 65 - 199 [facility] mg/dL [facility] Comment: Supplemental [...] City/State/[place] [address] (ABNORMAL) POCT Glucose (07/05/2017 9:02 PM EST) athologist Signature POC Glucose 301 (H) 65 - 199 [facility] mg/dL [facility] Comment: Supplemental [...] City/State/[place] [address] XR Chest PA or [...] 474 ms MUSE SYSTEM (Bezet) Calculated P Austin 50 degrees MUSE SYSTEM Calculated R Austin -28 degrees MUSE SYSTEM Calculated T Austin 90 degrees MUSE SYSTEM INTERPRETATION Sinus tachycardia [...] (ABNORMAL) Differential, Automated (07/05/2017 8:20 PM EST) [facility] gist Method Time Signature Neutrophils % 88.4 % [facility] Neutr Abs (ANC) 9.08 (H) 1.70 - [facility] 6.10 [facility] x10(3)/[facility] LABORATORY Lymphocytes % 7.0 % [facility] Lymphocytes Abs 0.7 (L) 0.9 - 3.2 [facility] x10(3)/[facility] LABORATORY Monocytes % 3.7 % [facility] Monocyte Abs 0.4 0.3 - 0.9 [facility] x10(3)/[facility] LABORATORY Eosinophils % 0.1 % [facility] Eosinophils Abs 0.0 0.0 - 0.4 [facility] x10(3)/[facility] LABORATORY Basophils % 0.2 % [facility] Basophils Abs 0.0 0.0 - 0.1 [facility] x10(3)/[facility] [...] Address City/State/Z[place] [address] (ABNORMAL) Hemogram (07/05/2017 8:20 PM EST) Analysis Performed At Patho logist Time Signature WBC 10.3 (H) 4.0 - 9.5 [facility] x10(3)/[facility] LABORATORY RBC 4.64 4.58 - [place] 5.54 [facility] x10(6)/[facility] LABORATORY Hemoglobin 14.1 13.7 - [place] 16.5 gm/dL [facility] Hematocrit 40.8 40.5 - [facility] 48.5 % [facility] MCV 87.9 82.9 - [facility] 93.1 [facility] LABORATORY MCH 30.4 27.5 - [place] 32.1 pg [facility] MCHC 34.6 32.0 - [facility] 35.7 gm/dL [facility] Platelets 204 145 - 357 [facility] x10(3)/[facility] LABORATORY RDWSD 46.1 (H) 36.0 - [facility] 45.0 [facility] LABORATORY RDWCV 14.5 (H) 11.4 - [facility] 13.8 % [facility] MPV 9.7 7.6 - 12.9 [facility] nRBC % Auto 0.0 % [facility] nRBC Abs Auto 0.000 0.000 - [facility] 0.000 [facility] x10(3)/[facility] LABORATORY Specimen Anatomical Collection Method Collection Time Receive d Time (Source) Location / / Volume Laterality Blood specimen 07/05/2017 8:20 PM 017 8:27 (specimen) EST PM EST Resulting Agency Comment Spec In Lab Daphne Shahid MD HEMATOLOGY ORDERABLES Performing Organization Address City/State/ZIP Code Phon e Number [place] [address] APTT (07/05/2017 8:20 PM [...] City/State/[place] [address] (ABNORMAL) Cardiac Enzymes (LEB/CGP) (07/05/2017 8:20 PM EST) athologist [facility] Troponin-T 2.11 (H) 0.00 - [facility] 0.00 ng/mL [facility] Comment: [...] additional sample may be indicated. Reference: Third Boomer Definition of Myocardial Infarction. Journal of the [place] College of [employer]iology 2012;60:1581-98 CK, Total 149 0 - 200 unit/L [facility] Specimen Anatomical Collection Method Collection Time Receive d Time (Source) Location / / Volume Laterality Blood specimen 07/05/2017 8:20 PM 017 8:27 (specimen) EST PM EST Resulting Agency Comment Spec In Lab Daphne Shahid MD CHEMISTRY ORDERABLES Performing Organization Address City/[facility]/ZIP [facility] [place] [address] (ABNORMAL) Magnesium (07/05/2017 8:20 PM EST) P athologist Signature Magnesium 0.68 (L) 0.69 - 1.07 [facility] mmol/L [facility] Specimen Anatomical Collection Method Collection Time Receive d Time (Source) Location / / Volume Laterality Blood specimen 07/05/2017 8:20 PM 017 8:27 (specimen) EST PM EST Resulting Agency Comment Spec In Lab Daphne Shahid MD CHEMISTRY ORDERABLES Performing Organization Address City/[facility]/[place] [address] (ABNORMAL) Basic Metabolic Panel (non-fasting) (07/05/2017 8:20 PM EST) P athologist Signature Glucose Lvl 321 (H) 65 - 199 [facility] mg/dL [facility] Comment: [...] or in patients with acute kidney failure. http://emploi.us/DHnkdep http://emploi.us/DHMCnkf Specimen Anatomical Collection Method Collection Time Receive d Time (Source) Location / / Volume Laterality Blood specimen 07/05/2017 8:20 PM 017 8:27 (specimen) EST PM EST Resulting Agency Comment Spec In Lab Daphne Shahid MD CHEMISTRY ORDERABLES Performing Organization Address City/State/[place] [address] (ABNORMAL) POCT Glucose (07/05/2017 7:32 PM EST) P athologist Signature POC Glucose 296 (H) 65 - 199 [facility] mg/dL [facility] Comment: Supplemental [...] City/State/[place] [address] CARDIAC CATHETERIZATION (07/05/2017 6:47 PM EST) Anatomical Region Laterality Modality Other Specimen (Source) Anatomical Location Collection Method / Collectio n Time Received Time / Laterality Volume Narrative 07/05/2017 7:27 PM EST ?[facility] ? Cardiac Cathete rization/Intervention Report ? Patient Name: Gregory Hoang ? Procedure Date: 07/05/2017 ? A #: [id number] ? Primary Physician: Clarisa, Jet T ? Case #: [id number] ? File Name: [id number] ? Catheterization Order Number: [id number] ? [facility] ? Final Report [place], [place] ? Patient Name: ? Gregory Natalya ?ID#: ?[id number] ? : ?1945 ? Procedure Date: ? [...] presented with: non -STEMI (w/i 7 days). [place] ?Cardiovascular Society angina c lass was IV. 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 ? Jet Mckenna M.D. ? Electronically Signed by: Jet bunch M.D. ? Report Finalized: 07/05/2017 ??19:23 ? Report Last Ammended: 10/26/2017 ??10:29 ? Procedure Note Jet Mckenna MD - 10/26/2017Formatt ing of this note might be different from the original. [facility] Cardiac Catheterization/Intervention Re port Patient Name: Gregory Hoang Procedure Date: 07/05/2017 A #: [id number] Primary Physician: Jet Mckenna Case #: [id number] File Name: [id number] Catheterization Order Number: [id number] [facility] Final Report [place], [place] Patient Name: Gregory Hoang ID#: [id number] : 1945 Procedure Date: July 05, [...] presented with: non-STEMI ( w/i 7 days). [place] Cardiovascular Society angina class was IV. No [...] site angiograph y and IABP insertion in phlebotomist medical lab assistant. Jet Mckenna M.D. Electronically Signed by: [...] Mccollum ? (Age): 1945(72y) Med Rec#: ? [id number] ?Sex: ?M ? Site Loc: ? [facility] ?Ht / Wt: ??173(cm)/86(kg) Pt. Loc: ?CCU ? BSA: ?2 Study Date: ?? 07/05/2017 ?Pt. Type: Inpatient Tape: ? Referring: Daphne Shahid ([id number]) Referring: MANDA ALCANTAR Reading: Blade Preston ([id number]) Research Advisor: Dayami Paula BA, [facility] [...] E-wave Vmax ?0.8 ?m/sec ? MV deceleration [id number] ?msec ? MV A-wave Vmax ?0.8 ?m/sec [...] ? Mid-Inferior ?Akinetic ? Mid-Inferoseptal ?Hypokinetic ? [place]-Septal ? Akinetic ? [place]-Anterior ? Hypokinetic ? [place]-Lateral ?Hypokinetic ? [place]-Inferior ? Akinetic ? [place]-Tip ?Akinetic ? This report has been electronically sign ed by: _ Blade Preston MD ? 07/06/2017 08 :53:15 Images reviewed and interpretation [facility] Procedure Note Blade Preston MD - 07/06/2017Formatt ing of this note might be different from the original. Procedure: Transthoracic Echocardiogram Patient: NATALYA MCBRIDE(Age): [birth year]72y) Med Rec#: [id number] Sex: M Site Loc: [facility] Ht / Wt: 173(cm)/86(kg) Pt. Loc: CCU BSA: 2 Study Date: 07/05/2017 Pt. Type: Inpatie nt Tape: Referring: Daphne Shahid ([id number]) Referring: MANDA ALCANTAR Reading: Blade Preston ([id number]) Research Advisor: Dayami Paula BA, [facility] [...] MV E-wave Vmax 0.8 m/sec MV deceleration pliu140 msec MV A-wave Vmax 0.8 m/sec MV [...] Hypokinetic Mid-Posterolateral Hypokinetic Mid-Inferior Akinetic Mid-Inferoseptal Hypokinetic [place]-Septal Akinetic [place]-Anterior Hypokinetic [place]-Lateral Hypokinetic [place]-Inferior Akinetic [place]-Tip Akinetic This report has been electronically sign ed by: _ Blade Preston MD 07/06/2017 08:53:15 Images reviewed and interpretation ver ied [facility] Daphne Shahid MD ECHO ORDERABLES Differential, Automated (07/05/2017 4:55 PM EST) athologist Signature Neutrophils % 77.0 % [facility] Neutr Abs (ANC) 5.26 1.70 - [facility] 6.10 [facility] x10(3)/[facility] LABORATORY Lymphocytes % 13.3 % [facility] Lymphocytes Abs 0.9 0.9 - 3.2 [facility] x10(3)/[facility] LABORATORY Monocytes % 8.2 % [facility] Monocyte Abs 0.6 0.3 - 0.9 [facility] x10(3)/[facility] LABORATORY Eosinophils % 0.7 % [facility] Eosinophils Abs 0.0 0.0 - 0.4 [facility] x10(3)/[facility] LABORATORY Basophils % 0.4 % [facility] Basophils Abs 0.0 0.0 - 0.1 [facility] x10(3)/[facility] LABORATORY Immature Gran % 0.40 % [facility] [...] 0.00 - 0.04 x10(3)/[facility] Y [facility] LABORATORY Specimen Anatomical Collection Method Collection Time Receive d Time (Source) Location / / Volume Laterality Blood specimen 07/05/2017 4:55 PM 017 5:24 (specimen) EST PM EST Resulting Agency Comment Spec In Lab Daphne Shahid MD HEMATOLOGY ORDERABLES Performing Organization Address City/State/[place] [address] (ABNORMAL) Hemogram (07/05/2017 4:55 PM EST) Analysis Performed At Patho logist Time Signature WBC 6.8 4.0 - 9.5 [facility] x10(3)/[facility] LABORATORY RBC 4.67 4.58 - [facility] 5.54 [facility] x10(6)/[facility] LABORATORY Hemoglobin 14.0 13.7 - [place] 16.5 gm/dL [facility] Hematocrit 41.0 40.5 - [place] 48.5 % [facility] MCV 87.8 82.9 - [facility] 93.1 [facility] LABORATORY MCH 30.0 27.5 - [place] 32.1 pg [facility] MCHC 34.1 32.0 - [place] 35.7 gm/dL [facility] Platelets 197 145 - 357 [facility] x10(3)/[facility] LABORATORY RDWSD 46.4 (H) 36.0 - [place] 45.0 [facility] LABORATORY RDWCV 14.5 (H) 11.4 - [place] 13.8 % [facility] MPV 9.7 7.6 - 12.9 [facility] LABORATORY nRBC % Auto 0.0 % [facility] nRBC Abs Auto 0.000 0.000 - [place] 0.000 [facility] x10(3)/[facility] LABORATORY Specimen Anatomical Collection Method Collection Time Receive d Time (Source) Location / / Volume Laterality Blood specimen 07/05/2017 4:55 PM 017 5:24 (specimen) EST PM EST Resulting Agency Comment Spec In Lab Daphne Shahid MD HEMATOLOGY ORDERABLES Performing Organization Address City/State/[place] [address] (ABNORMAL) Cardiac Enzymes (LEB/CGP) (07/05/2017 4:55 PM EST) P athologist Signature Troponin-T 1.69 (H) 0.00 - [place] 0.00 ng/mL [facility] Comment: [...] additional sample may be indicated. Reference: Third Boomer Definition of Myocardial Infarction. Journal of the [place] [employer] 2012;60:1581-98 CK, Total 191 0 - 200 unit/L [facility] Specimen Anatomical Collection Method Collection Time Receive d Time (Source) Location / / Volume Laterality Blood specimen 07/05/2017 4:55 PM 017 5:56 (specimen) EST PM EST Resulting Agency Comment Spec In Lab Daphne Shahid MD CHEMISTRY ORDERABLES Performing Organization Address City/[facility]/[place] [address] (ABNORMAL) pro-Brain Natriuretic Peptide (07/05/2017 4:55 PM EST) P athologist Signature ProBNP 1,598 (H) <=125 [facility] pg/mL [facility] Specimen Anatomical Collection Method Collection Time Receive d Time (Source) Location / / Volume Laterality Blood specimen 07/05/2017 4:55 PM 017 5:24 (specimen) EST PM EST Resulting Agency Comment Spec In Lab Daphne Shahid MD CHEMISTRY ORDERABLES Performing Organization Address City/State/[place] [address] Magnesium (07/05/2017 4:55 PM EST) P athologist Signature Magnesium 0.78 0.69 - 1.07 [facility] mmol/L [facility] Specimen Anatomical Collection Method Collection Time Receive d Time (Source) Location / / Volume Laterality Blood specimen 07/05/2017 4:55 PM 017 5:24 (specimen) EST PM EST Resulting Agency Comment Spec In Lab Daphne Shahid MD CHEMISTRY ORDERABLES Performing Organization Address City/State/Z[place] [address] (ABNORMAL) Basic Metabolic Panel (non-fasting) (07/05/2017 4:55 PM EST) P athologist Signature Glucose Lvl 230 (H) 65 - 199 [facility] mg/dL [facility] Comment: [...] or in patients with acute kidney failure. [email or web address] [email or web address] Specimen Anatomical Collection Method Collection Time Receive d Time (Source) Location / / Volume Laterality Blood specimen 07/05/2017 4:55 PM 017 5:24 (specimen) EST PM EST Resulting Agency Comment Spec In Lab Daphne Shahid MD CHEMISTRY ORDERABLES Performing Organization Address City/[facility]/[place] [address] (ABNORMAL) APTT (07/05/2017 4:55 [...] MD HEMATOLOGY ORDERABLES Performing Organization Address City/[facility]/[place] [address] (ABNORMAL) POCT Glucose (07/05/2017 4:53 PM EST) athologist Signature POC Glucose 208 (H) 65 - 199 [facility] mg/dL [facility] Comment: Supplemental ranges: <140 mg/dL before meals <180 mg/dL all other times of the day Specimen Anatomical Collection Method Collection Time Receive d Time (Source) Location / / Volume Laterality Blood specimen 07/05/2017 4:53 PM 017 4:53 (specimen) EST PM EST Daphne Shahid MD POINT OF CARE TEST ORDERABLE S Performing Organization Address City/[facility]/[place] [address] EKG 12 Lead (07/05/2017 4:32 PM EST) Component Value Ref Range Test Analysis Performed Pathologis t Method Time At Signature Ventricular rate 97 BPM MUSE SYSTEM Atrial Rate 97 BPM MUSE SYSTEM P-R Interval 148 ms MUSE SYSTEM QRS Duration 96 ms MUSE SYSTEM Q-T Interval 364 ms MUSE SYSTEM QTC Calculated 462 ms MUSE SYSTEM (Bezet) Calculated P [place] 48 degrees MUSE SYSTEM Calculated R [place] -33 degrees MUSE SYSTEM Calculated T [place] 98 degrees MUSE SYSTEM INTERPRETATION Normal sinus [...] Coronary atherosclerosis of unspecified type of vessel, pala or graft Cardiomyopathy, ischemic Other specified forms [...] dose on Wed07/07/17 at 2100, Until Discontinued, [place] teeth, Routine Given 07/08/2017 10:06 PM EST [...] or norepinephrine is ineffective. Call pager # [phone] if initiated. Rate/Dose Change 07/08/2017 7:01 PM [...] if phenyleprine and/or vasopressin ineffective.Call pager # [phone] if initiated., Routine Rate/Dose Change 07/09/2017 1:24 [...] L/min/M2. Maximum volume 2 L. Call greenhouse technician for additional fluid orders: pager #[phone]. Rate/Dose Verify 07/08/2017 4:00 AM EST 100 [...]
Routine documented in this encounter Care Teams Faculty Criminal Justice Relationship Specialty Start Date End Date Lovely Vicente MD PCP - General 04/16/[address] [place] [address] [address] [facility] [address] [place] [address] documented as of this encounter
--- OUTSIDE RECORDS SUMMARY | 2022-05-01 09:01 | XMS_ITS | Encounter Summary ---
:1945 [place] [address] Care Team Providers Name Role Phone Lovely Vicente MD Primary Care Provider Reason for Visit Auth/Cert Specialty Diagnoses / Procedures Referred By Contact Refer red To Contact Diagnoses STEMI (ST elevation myocardial infarction) NSTEMI STEMI Procedures CARDIAC CATHETERIZATION NAYE IPI Referral ID Status Reason Start Date Expiration Date Visits Requ ested Visits Authorized [id number] 1 1 Encounter Details Date Type Department Care Team Description 07/07/2017 Anesthesia Event Main Operating Room Yifan Jaime MD [facility] [place] [address] [facility] Ginny Murray MD [facility] [address] [place] [address] [facility] [email or web address] [address] Anesthesia Record Procedure Summary Procedure Name [...] 2342 LDA Cath/EP Sheath 07/05/17; 0606; 8 Icelandic 07/05/17 0606 by [id number] by (Fr); Right; Femoral [place]iana [place], Yane Cook, RN PIV 07/05/17; 1720; median 07/05/17 1720 by 07/11/17 2355 by vein (underside of arm), Prior, Yanet Maza, Angela Mccurdy, left; 18 gauge; removed LINER MACHINE OPERATOR HELPER per policy/procedure; 07/11/17; 2355 Intra-Aortic Balloon 07/05/17; [...] Miller, Carrie L, Type: Cuffed; ETT Size: DICTATING TRANSCRIBING MACHINE SERVICER 8 mm; Santiago Blade: 2; Notes: Asleep, [...] Murray MD - 07/08/2017 5:08 PM EST [facility] [place] of Anesthesiology Post-procedure Note Patient: Don Fatima Procedure Summary Date Anesthesia Start Anesthesia Stop Room / Location 07/07/17 1335 1836 [facility] Procedure Diagnosis Surgeon Responsible Provider @CABG, USING ARTERIAL GRAFT;SINGLE ARTERIAL GRAFT (WRVU 33.75) (N/A Chest); @CABG, TWO VENOUS GRAFTS & ARTERIAL GRAFT (WRVU 7.93) (N/A Chest); ENDOSCOPIC HARVEST VEIN(S) FOR CABG (WRVU 0.31) (Right Leg) (CAD) Yuan Freitas MD Hartman, Gregg S, MD All Anesthesia Providers: Anesthesiologist: Yifan Perez MD [facility] [employer]: Ginny Murray MD Most Recent Vitals: 07/08/17 [...] MD at [facility] ENDOSCOPY ??? PRO THYROIDECTOMY 03/28/2013 THYROIDECTOMY, TOTAL OR COMPLETE performed by Manny Mcknight MD at [facility] MAIN OR Social History Substance Use [...] Zulma Dolan MD [facility] [place], [place] [address] (Wo rk) 05/28/2022 Laboratory Appointment Lab 05/28/2022 Office Visit Cardiology Zulma Dolan [place] [address] Liz Poole PA [facility] [place] [address] 06/10/2022 Office Visit Dermatology Laura Scherer MD [facility] [address] [facility]LOG[facility] [place], [place] [address] (Wo rk) documented as of [...] mg documented in this encounter Care Teams Computer Systems Manager Relationship Specialty Start Date End Date Lovely Vicente MD PCP - General 04/16/[address] [place] [address] documented as of this encounter
--- OUTSIDE RECORDS SUMMARY | 2022-05-01 09:01 | XMS_ITS | Encounter Summary ---
:1945 Author Organization [facility] Address [facility] [place] [address] Care Team Providers Name Role Phone Lovely Vicente MD Primary Care Provider Reason for Visit Auth/Cert Specialty Diagnoses / Procedures Referred By Contact Refer red To Contact Diagnoses STEMI (ST elevation myocardial infarction) NSTEMI STEMI Procedures CARDIAC CATHETERIZATION NAYE IPI Referral ID Status Reason Start Date Expiration Date Visits Requ ested Visits Authorized [id number] 1 1 Encounter Details Date Type Department Care Team Description 07/07/2017 Surgery Main Operating Room Yuan Webebr, @ CABG, USING ARTERIAL Barbara Ocampo MD GRAFT;SINGLE ARTERIAL Hospital [facility] GRAFT (WRVU 33.75) [facility] [place] [address] SURGERY [phone] [place], [place] [address] (Wo rk) Social History Tobacco [...] in this encounter Discharge Summaries Martha Teague, ACCOUNTS RECEIVABLE ASSOCIATE - 07/14/2017 9:38 AM EST Inpatient - Discharge Summary Patient Name: Gregory Hoang Patient Age: 72 y.o. Birthdate: 1945 Language: Romanian Race: White Ethnicity: Not nor Admit Date: [...] , @ 1:20p Patient to follow-up with Labor Contract Analyst/heart failure team in one week. An appointment will be made for you. You may call [phone] Patient to follow-up with Cardiac Surgery, Dr. Yuan Webber, in ~ 4 weeks with CXR, EKG. Inpatient Provider Contact Information: [facility] [place] [address] FAX [phone] Discharge Diagnoses (Hospital Problems) Primary Diagnoses: CAD [...] 33.75) performed by Yuan Webber MD at [facility] OR ??? PRO CABG, ARTERY-VEIN, TWO N/A 07/07/2017 @CABG, TWO VENOUS GRAFTS & ARTERIAL GRAFT (WRVU 7.93) performed by Yuan Webber MD at [facility] OR ??? PRO COLONOSCOPY, REMV LESN, SNARE 01/16/2014 COLONOSCOPY, POLYPECTOMY, REMOVAL LESION BY SNARE performed by Nohemi Jaimes MD at [facility] ENDOSCOPY ??? PRO ENDOSCOPY W/VIDEO-ASST VEIN HARVEST, CABG Right 07/07/2017 ENDOSCOPIC HARVEST VEIN(S) FOR CABG (WRVU 0.31) performed by Yuan Webber MD at [facility] OR ??? PRO THYROIDECTOMY 03/28/2013 THYROIDECTOMY, TOTAL OR COMPLETE performed by Manny Mcknight MD at [facility] OR Prior To Admission Medications Prescriptions Prior to Admission Medication Sig Dispense Refill Last Dose ??? levothyroxine (SYNTHROID) 175 mcg Tablet Take 1 tablet by mouth daily. 90 tablet 3 07/05/2017 [id number] ??? ascorbic acid, vitamin C, (VITAMIN C) [...] course, he was taken emergently to the field laborer for an ongoing STEMI. An IABP [...] not take or discontinue any prescription or qzvt-zhz-oiwoaqb medications without asking your doctor or pharmacist [...] have your insulin doses adjusted. [facility] [place] [place] Discharge Instructions: Call your doctor if: You have a fever of greater than 101 degrees, shaking chills, if you develop redness or drainage from your incision sites, or if you have questions. Please call your surgeon's office if you have any discharge or drainage from your chest incision. Your surgeon, Dr. Yuan Webber and/or the Cardiac Surgery Physician Remote Encoding Center Manager Team may be reached at . [...] Dr. Yuan Webber. You may use a [place] Track or treadmill but avoid any pulling [...] friends, go to a movie, go to worship, etc. Heavy activities: No hunting, skiing, jogging, snow shoveling, snowmobiling, lawn mowing, swimming, golf or tennis until after your return appointment with the surgeon. Do not ride motorcycles, Kodable's tractors or horses. Avoid the use of [...] should resume a low fat, low cholesterol, [place] Heart [employer] Diet/Diabetic diet. Driving: No driving [...] , @ 1:20p Patient to follow-up with Labor Contract Analyst/heart failure team in one week. Appointment will be made for you. You may call [phone] Patient to follow-up with Cardiac Surgery, Dr. Yuan Webber, in ~ 4 weeks with CXR, EKG. Cardiac Rehabilitation: Gregory Hoang was seen today regarding participation in the outpatient Phase 2 Cardiac Rehabilitation at [facility]. The patient agrees to a referral to this program. The referral will be sent at discharge and the patient should be contacted by the Program within 1- 2 weeks from discharge. ?? Future Appointments and Orders Future Appointments Provider Department Dept Phone 09/07/2017 3:00 PM LAB, THREE L Lab 3L [facility] [phone] 09/07/2017 4:00 PM Luz Prescott MD Endocrinology at [place] [phone] Future Orders Complete By Expires EKG 12 Lead [EKG1 Custom] 08/14/2017 02/13/2018 Process Instructions: Scheduling Instructions: Questions: Which DH location will this be performed?: [place] Is a rhythm strip needed?: No If EKG Reason is Pre-op Evaluation, indicate diagnosis for surgery.: XR Chest PA & Lateral (Generic) [[id number] Custom] 08/14/2017 02/13/2018 Process Instructions: Scheduling Instructions: Questions: Where will study be performed?: [place] [facility] Portable exam?: Reason for exam and clinical history: CABG x 3 Other pertinent information: Stat read required?: Date of injury if applicable: Requested Time: Referral to Cardiac Rehab [UZX249 Custom] As directed Process Instructions: If no progress note charted, please enter Clinical details in comments. Scheduling Instructions: Questions: My question or request is: s/p CABG. Cardiac rehab at [facility] Referral to Home Health - at DISCHARGE [XLP8522 CPT(R)] As directed Process Instructions: Scheduling Instructions: Comments: DOCUMENTATION FOR VNA SERVICES (INCLUDING THOSE PATIENTS WITH MEDICARE COVERAGE REQUIRING HOME VNA SERVICES AND/OR HOSPICE SERVICES) PATIENT'S LOCATION: Gregory Hoang [address] [place] [address] [place] [id number] (home) Telephone Information: Whiting Machine Operator's Name: self In discussion with the attending physician, it is certified that this patient is under their care and that they, or a Nurse Practitioner, or Physician Remote Encoding Center Manager who is working directly with them, [...] M[facility] ([facility] [place] [facility]-is in [place] PHONE: [phone] FAX: [phone] RN orders: Cardiopulmonary assessment, incisional assessment, assess vital signs, assessment of rehab progress, medication management and effectiveness, home safety evaluation. Please draw INR if indicated and send result to:Dr Vicente [phone] PT ORDERS: Continue rehab for endurance, gait stability and strength with mobility and transfers. Home safety evaluation. Home exercise program if appropriate. Start of Care Date:24-48 hours after discharge SPECIAL INSTRUCTIONS: For any follow up questions, needs, or issues please call the Cardiac Surgery Office at [phone] FOR MEDICARE ONLY: (please delete this section [...] noted. Questions: Agency name and contact information: [facility] Patient location post discharge: home What services are requested: Registered Nurse Physical Therapy Start date: Responsible MD post discharge contact info: PCP Arrangements for VNA/home care: As above. VN RN OR PCP TO PLEASE REMOVE CHEST TUBE SUTURES ON OR AFTER 07/17/2017 Signed: Martha Teague APRN [facility] [place] [address] FAX [phone] Date: 07/14/2017 CC: MD Ivania Cr Betsy, PA [address] [place] [phone] documented in this encounter Discharge Instructions Discharge [...] have your insulin doses adjusted. [facility] office Patient InstructionsStMartha mcdonald APRN [...] not take or discontinue any prescription or foov-gjc-ykldfhq medications without asking your doctor or pharmacist [...] have your insulin doses adjusted. [facility] Endocrine clinic office ? Discharge Instructions: ?? Call your doctor if: You have a fever of greater than 101 degrees, shaking chills, if you develop redness or drainage from your incision sites, or if you have questions. Please call your surgeon's office if you have any discharge or drainage from your chest incision. Your surgeon, Dr. Yuan Webber and/or the Cardiac Surgery Physician Remote Encoding Center Manager Team may be reached at . [...] Dr. Yuan Webber. You may use a [place] Track or treadmill but avoid any pulling [...] friends, go to a movie, go to worship, etc. ?? Heavy activities: No hunting, skiing, jogging, snow shoveling, snowmobiling, lawn mowing, swimming, golf or tennis until after your return appointment with the surgeon. Do not ride motorcycles, Kodable's tractors or horses. Avoid the use of [...] should resume a low fat, low cholesterol, [place] Heart [employer] Diet/Diabetic diet. ?? Driving: No [...] @ 1:20p ?? Patient to follow-up with Labor Contract Analyst/heart failure team in one week. An appointment has been made for you, you can call [phone] ?? Patient to follow-up with Cardiac Surgery, Dr. Yuan Webber, in ~ 4 weeks with CXR, EKG. ? Cardiac Rehabilitation: Gregory Hoang??was seen today regarding participation in the outpatient Phase 2 Cardiac Rehabilitation at [facility]. ?? The patient agrees to a referral to this program.? The referral will be sent at discharge and the patient should be contacted by the Program within 1- 2 weeks from discharge. ? Future Appointments and Orders Future Appointments Provider Department Dept Phone ?? 09/07/2017 3:00 PM LAB, THREE L Lab 3L [facility] [phone] ?? 09/07/2017 4:00 PM Luz Prescott MD Endocrinology at [place] [phone] Future Orders Complete By Expires ?? EKG 12 Lead [EKG1 Custom] 08/14/2017 02/13/2018 ?? Process Instructions: ? Scheduling Instructions: ? Questions: ? Which location will this be performed?: [place] ?? Is a rhythm strip needed?: No ?? If EKG Reason is Pre-op Evaluation, indicate diagnosis for surgery.: ?? XR Chest PA & Lateral (Generic) [[id number] Custom] 08/14/2017 02/13/2018 ?? Process Instructions: ? Scheduling Instructions: ? Questions: ? Where will study be performed?: [place] [facility] ?? Portable exam?: ?? Reason for exam and clinical history: CABG x 3 ?? Other pertinent information: ?? Stat read required?: ?? Date of injury if applicable: ?? Requested Time: ?? Referral to Cardiac Rehab [ZJC042 Custom] As directed ? Process Instructions: ?? If no progress note charted, please enter Clinical details in comments. ?? Scheduling Instructions: ? Questions: ? My question or request is: s/p CABG. Cardiac rehab at [facility] ? Arrangements for VNA/home care: As [...] RN - 07/14/2017 2:34 PM EST The patient/lead customer service representative has been provided a list of Home Health Agencies/DME vendors which serve their preferred geographic area. A letter describing our affiliations was reviewed with them and theywere educated about their right to choose where referrals are placed. Patient requests referral to [facility]. PHONE: [phone] FAX: [phone] Expected date of discharge: 07/14 Referral routed to the Re Recording Mixer for matching with agency/vendor and to provide [...] have your insulin doses adjusted. [facility] office Kathie Carrera APRN [facility] Endocrinology Diabetes Management Pager [phone] minutes of this 35 minute visit was spent with the patient in counseling on diabetes and treatment plan, reviewing all glucose and insulin data as well as relevant laboratory results with the patient, and coordination of care on the inpatient unit including nursing and primary team. Zulma Power RN - 07/14/2017 10:30 AM EST The patient/lead customer service representative has been provided a list of Home Health Agencies/DME vendors which serve their preferred geographic area. A letter describing our affiliations was reviewed with them and theywere educated about their right to choose where referrals are placed. Patient requests referral to : Yasmani Munguia ([facility] [place] [facility]-is in [place] PHONE: [phone] FAX: [phone]. Expected date of discharge: 07/14/17 Referral routed to the Re Recording Mixer for matching with agency/vendor and to provide [...] hours. If BG remains greater than 240, dlmyzd95 units (no more than three times) &??call [...] #6 s/p CABG X3. FSBG 80 at [place], reports no symptoms but did drink some [...] to follow Katerin Azul APRN [facility] Endocrinology Diabetes Management Pager [phone] minutes of this 25 minute visit [...] of infiltration/extravasation Discussed plan of care with CORNICE MAKER and RN. Elevate exrtemity and apply intermittent Warm compresses. Name of MD contacted Dr. Shaw Brown 07/13/2017 @ 0664 Name of RN contacted Ale Rangel RN Name of Pharmacist if consulted NA Name of Plastics MD ( if consulted) NA (Mandatory photo for infiltrations/ extravasations scoring a stage 2 or greater, but recommended forstage 1)( include measuring tape and identifier in the photo) BALANCE ENGINEER CARING FOR THIS PATIENT WILL CONTINUE [...] measuring tape and identifier in the photo) BALANCE ENGINEER CARING FOR THIS PATIENT WILL CONTINUE [...] infiltrates addressed by this scenario writer.All of MrMadiha Hoang's responses were entirely appropriate. Images of infiltrates attached here. L Martha Teague, ACCOUNTS RECEIVABLE ASSOCIATE - 07/13/2017 8:01 AM EST Cardiac Surgery Progress Note: ID: [id number] 72 year old male POD#6 s/p CABGx3 [...] discharge. ?? I have met with the patient/lead customer service representative to discuss discharge planning needs. I have provided the [facility], Office of Care Management letter from the Death Claim Examiner pertaining to rehab referrals. I have also provided a letter describing our affiliations within the [facility] and educated them about their right to choose where referrals are placed. ?? I reviewed the different levels of rehab including SNF, swing, acute and LTAC with the patient/lead customer service representative. ?? The patient/lead customer service representative has been provided a list of facilities within their preferred geographic area. ?? I have requested that the patient/lead customer service representative provide at least three choices for referral. ?? The patient/lead customer service representative have requested referrals to: ?? [facility]. [facility] ?? 2. [facility] ?? 3. More to be entered ?? Expected date of discharge: 07/14 Note routed to Re Recording Mixer who will communicate referrals to facilities and [...] hours. If BG remains greater than 240, mqekmd38 units (no more than three times) & call for new basal insulin orders. ??If less than 240 after two hours, give no insulin and resume prior schedule. Will continue to follow Katerin Azul APRN [facility] Endocrinology Diabetes Management Pager [phone] minutes of this 35 minute visit was spent with the patient in counseling on diabetes and treatment plan, reviewing all glucose and insulin data as well as relevant laboratory results with the patient, and coordination of care on the inpatient unit including nursing and primary team. Makayla Stevenson APRN - 07/12/2017 9:52 AM EST Cardiac Surgery Progress Note: ID: [id number] 72 year old male POD#5 s/p CABGx3 [...] PM EST Patient arrived from [facility]. VSS. MSI dressing pulled off with [...] hours. If BG remains greater than 240, bytuur57 units (no more than three times) & [...] AM EST Cardiac Surgery Progress Note: ID: [id number] 72 year old male POD#4 s/p CABGx3 [...] hours. If BG remains greater than 240, vnnnex76 units (no more than three times) & [...] AM EST Cardiac Surgery Progress Note: ID: [id number] 72 year old male POD#3 s/p CABGx3 [...] Gas) No results found for: PHART, PO2ART, YYH1IRU Assessment/Plan: 72 year old male POD#3 s/p [...] Mami Thao - 07/09/2017 6:29 PM EST Senior Product Development Engineer Encounter Note Patient Name: Gregory Hoang : [id number] MR#: [id number] Admit Date: 07/05/2017 4:20 PM Hospital Day 4 days Narrative: Patient was sitting in chair, hugging heart pillow, opened his eyes, nodding to come into room Assessment: Patient was sleepy. Intervention and Outcome: Introduced vehicle operator technician services and patient reached his hand out in appreciation. Follow-up: Senior Product Development Engineer remains available for support. Time in [...] 10:45 AM EST Report given to staff services manager to cover care Maddison Cee PA - 07/09/2017 9:00 AM EST Cardiac Surgery Progress Note: ID: [id number] 72 year old male POD#2 s/p CABGx3 [...] completed shifts: In: 7977.4 [I.V.:7477.4; Other:500] Out: 5705 [Urine:3000; Other:615] I- 4 L O- 2.7 [...] when IABP d/c'ed. Gretchen Carolina, PT Pager [phone] Maddison Cee PA - 07/08/2017 11:27 AM EST Cardiac Surgery Progress Note: ID: [id number] 72 year old male POD#1 s/p CABGx3 [...] [place] Section of Cardiac Surgery Date: 07/08/2017 Philipp, [...] in place in R femoral. No hematoma. PHONOGRAPH NEEDLE TIP MAKER- Intact Psych- Anxious Skin- Dry, no peripheral [...] MD, PGY-1 Cardiology S1 (pgr. [id number]) Daphne Shaihd MD - 07/06/2017 10:18 PM EST Cardiovascular [...] intact. IABP in place in R femoral. PHONOGRAPH NEEDLE TIP MAKER- Intact Psych- Anxious Skin- Dry, no peripheral [...] note for details. DAPHNE SHAHID MD Pager [phone] Jet Mckenna MD - 07/05/2017 6:48 PM EST Preliminary Cardiac Catheterization Procedure Note: Procedure(s) performed: Left heart cath, IABP insertion Access: Right PRESS TENDER INCENDIARY GRENADE-->8fr IABP A time-out was conducted prior to [...] effect. Heparin gtt maintained. Pt transferred to field laborer. documented in this encounter H&P Notes Daphne Shahid MD - 07/05/2017 6:08 PM EST CARDIOLOGY HISTORY & PHYSICAL EXAM Date of Admission: 07/05/2017 ( Hospital Day 0 days ) Responsible Attending: Daphne Shahid MD PCP: Lovely Vicente MD PCP#: [phone] Patient Active Problem List Diagnosis Code ??? [...] heparin drip and transferred to [facility]. While there, continued sob, question of chest pain. Stat TTE showing WMA diffusely and EF around 20%. No significant valvular disease. Taken to the field laborer urgently for ongoing STEMI. [facility] Labs: INR 1.0 WBC 5.88 Hgb [...] monitor I/O - s/p lasix in the field laborer, redose to aim net neg 1L [...] Medicine, PGY-2 Cardiology S1, Team Pager # [phone] CARDIOLOGY ATTENDING NOTE Patient: Gregory Hoang Date [...] amenable for PCI. DAPHNE SHAHID MD Pager [phone] documented in this encounter Miscellaneous Notes Consult Note - Daphne Shahid MD - 07/14/2017 11:46 AM EST Heart Failure Service Inpatient Consult Note Gregory Hoang Date of : 1945 Age: 72 y.o. Today's date: 07/14/17 PCP: Lovely Vicente MD FAST FOOD TEAM MEMBER: None Place of Service: C451-A Reason for [...] 33.75) performed by Yuan Webber MD at [facility] OR ??? PRO CABG, ARTERY-VEIN, TWO N/A 07/07/2017 @CABG, TWO VENOUS GRAFTS & ARTERIAL GRAFT (WRVU 7.93) performed by Yuan Webber MD at [facility] OR ??? PRO COLONOSCOPY, REMV LESN, SNARE 01/16/2014 COLONOSCOPY, POLYPECTOMY, REMOVAL LESION BY SNARE performed by Nohemi Jaimes MD at [facility] ENDOSCOPY ??? PRO ENDOSCOPY W/VIDEO-ASST VEIN HARVEST, CABG Right 07/07/2017 ENDOSCOPIC HARVEST VEIN(S) FOR CABG (WRVU 0.31) performed by Yuan Webber MD at [facility] OR ??? PRO THYROIDECTOMY 03/28/2013 THYROIDECTOMY, TOTAL OR COMPLETE performed by Manny Mcknight MD at [facility] OR Outpt Meds: Current Outpatient [...] following studies: EKG 07/14/17: NSR 75 bpm, CHICKEN FANCIER anterior infarct, LAD CXR 07/11/17: FINDINGS: Sternotomy wires. The patient has been extubated, left chest tube removed, and [place]-Suzi catheter removed since the 07/07/2017 study. Atelectasis [...] 129 07/06/2017 LDLCHOL 92 07/06/2017 Impression Mr. Hoagn is a 72 year-old man [...] was discussed with Zehra. Jaden Kelley MD Assistant Quality Manager Pager [phone] CARDIOLOGY ATTENDING NOTE Patient: Gregory Hoang Date [...] heart failure clinic. DAPHNE SHAHID MD Pager [phone] Plan of Care - Alden Chavarria, TUBE BLOWER - 07/14/2017 11:35 AM EST Problem: Patient [...] Discharge Disposition: home with assist Alden Chavarria, TUBE BLOWER Pager: [phone] Inpatient Physical Therapy Problem: Acute Rehab Services [...] sit/sit to supine -- Bed Mobility Goal, [place] Level supervision required -- Bed Mobility Goal, [...] - 3 days -- Gait Training Goal, [place] Level supervision required -- Gait Training Goal, [...] days -- Transfer Training Goal, Activity Type kbv-et-jxhwf/depeh-bl-kzo;quz-xn-hiskr/pihda-dt-ijr;toilet -- Transfer Train Goal, [place] Level supervision required -- Transfer Training Goal, [...] keeping present for 2 days per family. Sanitation Worker noted of frustrations, house keeping sent to room. Patient offered showered twice, refused. at bedside, frustrated that shower not complete, informed that patient had refused several times. requesting to see PRESIDENTIAL SUPPORT SPECIALIST, paged sent to Martha, will come to bedside (middle of consult). not willing to wait, Martha notified that family had gone home. Encouraged to come for morning rounds a t 8am. Diabetes team at bedside - insulin adjustments made. Call cabello in reach. Continue to monitor. PLAN MOVING FORWARD: Ambulate, dressing changes BID, Please change drsg at 4am per Martha PRESIDENTIAL SUPPORT SPECIALIST request. INDIVIDUALIZED FALL PREVENTION INTERVENTIONS: Patient-specific [...] levels on the lower side, 60ml of [place] juice given after a FS of 80. [...] 0502 Interdisciplinary Rounds/Family Conf Participants case management specialist;dietitian/nutrition services;nursing;occupational therapy;patient;pharmacy;physical therapy;physician Plan of Care [...] monitoring required during toileting and ADLs]: RN CORNICE MAKER Surveillance [continuous indirect monitoring]: Barrett Monitor CPG [...] Anticipated Discharge Disposition: home with assist Pager: [phone] CLARISSA SEGAL, PT 07/12/2017 Physical Therapy Rehabilitation [...] to sit/sit to supine Bed Mobility Goal, [place] Level supervision required Bed Mobility Goal, Additional Goal adheres to psternal precautions for transfer Goal: Gait Training Goal Stand Alone Therapy Goal Outcome: Ongoing (Interventions Implemented as Appropriate) 07/12/17 1225 Gait Training Goal Gait Training Goal, Date Established 07/12/17 Gait Training Goal, Time to Achieve 2 - 3 days Gait Training Goal, [place] Level supervision required Gait Training Goal, Assist [...] 3 days Transfer Training Goal, Activity Type msk-vn-cbfij/nekio-sr-lcv;bkd-fb-tfgra/puyxy-rp-wbn;toilet Transfer Train Goal, [place] Level supervision required Transfer Training Goal, Additional Goal adheres to sternal precautions during transfer Consult Note - Octavia Vaughn RN - 07/12/2017 10:50 AM EST [facility] Gregory Hoang was seen today regarding participation in the outpatient Phase 2 Cardiac Rehabilitation at [facility]. The patient agrees to a referral [...] IV site, amio to other piv and DIESEL MECHANIC APPRENTICE at bedside to help assess, IV removed. [...] staff, he stood and marched in place. [place] weak, wanting to sit back down. Remained [...] Health/Prescription Coverage: Primary Insurance: MEDICARE Secondary Insurance: [employer] Prescription Coverage: yes Preferred Pharmacy: [facility] [place] Other: none Primary Care Provider: Lovely Vicente MD [phone] Patient/Caregiver Goals of Treatment:live and get my breath back Potential Needs for Transition of Care: Rehab/SNF: [facility] Home Health: DME: TBD Dialysis: na Community Resources: available Transportation: yes Other: none Anticipated Barriers to Discharge/Special Considerations: none Plan: Likely SNF Rehab before home A member of the Care Management team will continue to monitor progress, follow for continuity of care and assist with transition of care planning. ERLIN Weiss Pager: [phone] Consult Note - Katerin Azul RN - [...] potential to d/c gtt and start CF. exterminator helper diabetes care: Medications - Outpatient treatment regimen recommendations pending based on the hospital course. Monitoring - continue BG tid ac & hs Diet - low fat/low carb diet Exercise - weight-bearing exercise 30 min/day, as tolerated Thank you for allowing us to provide care for your patient W/E coverage, Dr. Jeane Tatum, pager [phone] Katerin Azul APRN Endocrinology Diabetes Management Pager [phone] Plan of Care - Stephanie Godoy RN [...] - 07/07/2017 6:27 PM EST [facility] [place] Patient Name: Gregory Hoang : [id number] MR#: [id number] Case Date: 07/07/2017 Surgeon: Surgeon(s) and Role: * Yuan Webber MD - Primary * Michael Drake PA - Physician Remote Encoding Center Manager * Linda Flores PA - Physician Remote Encoding Center Manager Preoperative diagnosis: 3VD Postoperative diagnosis: CAD, [...] Operative Note Patient Name: Gregory Hoang : [id number] MR#: [id number] Case Date: 07/07/2017 Surgeon: Surgeon(s) and Role: * Yuan Webber MD - Primary * Michael Drake PA - Physician Remote Encoding Center Manager * Linda Flores PA - Physician Remote Encoding Center Manager Preoperative diagnosis: 3VD Postoperative diagnosis: CAD, [...] Inpatient Cardiology Progress Note Patient Name: Gregory Hoagn Date of Admission: 07/05/2017 ( Hospital Day [...] code status: Full Code Katty Hahn, MS3 [facility] Cardiology S1 (Pager [phone]) Plan of Care - Emelia Ibarra RN [...] with other involved physicians Yuan Webber MD [phone] Med Student Progress Note - Katty Hahn [...] or BiPAP - 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 ?? #Home Meds - continue levothyroxine 175mcg - CPAP at night ?? # Routine - DVT PPx: heparin drip - Diet: Healthy heart diet, NPO at midnight for CABG tomorrow - Code Status: FULL - Dispo: CVCC Katty Hahn, M3 [facility] Cardiology S1 (Pager [phone]) Plan of Care - Stephanie Godoy RN - 07/06/2017 5:00 AM EST Problem: Patient Care Overview Goal: Plan of Care Review 07/06/17 0946 Coping/Psychosocial Plan Of Care Reviewed With patient;family [...] in urinal without difficulty. 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 [...] Outcome: Ongoing (Interventions Implemented as Appropriate) 07/06/17 9266 Cardiac: ACS (Acute Coronary Syndrome) Problems Assessed [...] [facility] [address] [place] [address] (Wo rk) 05/28/2022 Laboratory Appointment Lab 05/28/2022 Office Visit Cardiology Zulma Dolan MD [facility] [place] [address] Liz Poole PA [facility] [place] [address] 06/10/2022 Office Visit Dermatology Laura Scherer MD [facility] [address] [place], [place] [address] (Wo rk) Scheduled Orders Name [...] procedure are i n the results section. PRESIDENT AND CHIEF OPERATING OFFICER SCAN 07/15/2017 12:00 Res ults for this [...] 4:00 Results f or this ([facility]) AM EST procedure [...] 7:40 Results f or this ([facility]) PM EST procedure are i n the [...] 2:10 Results f or this ([facility]) PM EST procedure are i n the [...] AND SCREEN Routine 07/06/2017 12:00 ([facility]SHANDA) PM EST APTT STAT 07/06/2017 11:24 Results [...] 8:10 Results f or this ([facility]) AM EST procedure are i n the [...] 2:20 Results f or this ([facility]) AM EST procedure are i n the [...] 8:20 Results f or this ([facility]) PM EST [...] 4:55 Results f or this ([facility]) PM EST [...] 2017 EXAMINATION: XR CHEST PA AND LATERAL ([facility]) CLINICAL HISTORY: CABG x 3 TECHNIQUE: PA [...] Teague APRN IMG DX ORDERABLES SCAN DOC: PRESIDENT AND CHIEF OPERATING OFFICER (07/15/2017 12:00 AM EST) Narrative 07/15/2017 12:00 [...] 186 65 - 199 [place] DAVIS mg/dL [facility] Comment: [...] City/State/ZIP Code Phon e Number [place] [id number] [facility] [address] POCT Glucose (07/14/2017 7:52 AM EST) athologist Signature POC Glucose 126 65 - [address] [facility] mg/dL [facility] [...] Address City/State/ZIP Code Phon e Number [address] (ABNORMAL) Prothrombin Time (07/14/2017 [...] Address City/State/ZIP Code Phon e Number [address] Potassium (07/14/2017 4:46 AM EST) athologist Signature Potassium 4.3 3.5 - 5.[address] [facility] mmol/L [facility] [...] Address City/State/ZIP Code Phon e Number [address] POCT Glucose (07/14/2017 4:34 AM EST) athologist Signature POC Glucose 115 65 - 199 [facility] mg/dL [facility] LABOR[facility]ORY [...] [facility]/ZIP Code Phon e Number [address] POCT Glucose (07/13/2017 11:33 PM EST) athologist Signature POC Glucose 132 65 - 199 [place] mg/dL [place] [...] [facility]/ZIP Code Phon e Number [address] POCT Glucose (07/13/2017 9:25 PM EST) athologist Signature POC Glucose 121 65 - 199 [place] mg/dL [facility] Comment: Supplemental ranges: <140 mg/dL before meals <180 mg/dL all other times of the day Specimen Anatomical Collection Method Collection Time Receive d Time (Source) Location / / Volume Laterality Blood specimen 07/13/2017 9:25 PM 017 9:25 (specimen) EST PM EST Yuan Webbre MD POINT OF CARE TEST ORDERABLE S Performing Organization Address City/State/ZIP Code Phon e Number [address] POCT Glucose (07/13/2017 4:55 PM EST) P athologist Signature POC Glucose 79 65 - 199 [facility] mg/dL [facility] [...] Address City/State/ZIP Code Phon e Number [address] POCT Glucose (07/13/2017 11:16 AM EST) P athologist Signature POC Glucose 163 65 - 199 [place] mg/dL [place] [...] Address City/State/ZIP Code Phon e Number [address] POCT Glucose (07/13/2017 8:07 AM EST) P athologist Signature POC Glucose 96 65 - 199 [place] mg/dL [facility] Comment: [...] [facility]/[place] [address] (ABNORMAL) Prothrombin Time (07/13/2017 [...] [facility]/[place] [address] (ABNORMAL) Basic Metabolic Panel (non-fasting) (07/13/2017 4:26 AM EST) P athologist Signature Glucose Lvl 95 65 - [address] [facility] mg/dL [facility] [...] or in patients with acute kidney failure. [email or web address] [email or web address] Specimen Anatomical Collection Method Collection Time Receive d Time (Source) Location / / Volume Laterality Blood specimen 07/13/2017 4:26 AM 017 4:46 (specimen) EST AM EST Resulting Agency Comment Spec In Lab Makayla Wilson APRN CHEMISTRY ORDERABLES Performing Organization Address City/[facility]/ZIP Code Phon e Number [address] POCT Glucose (07/13/2017 3:52 AM EST) P athologist Signature POC Glucose 93 65 - [address] [facility] mg/dL [facility] LABORATORY [...] Address City/State/Z[place] [address] POCT Glucose (07/13/2017 12:21 AM EST) athologist Signature POC Glucose 80 65 - 199 [place] mg/dL [place] [...] Address City/State/ZIP Code Phon e Number [address] POCT Glucose (07/12/2017 8:22 PM EST) athologist Signature POC Glucose 119 65 - 199 [facility] mg/dL [facility] Comment: Supplemental ranges: <140 mg/dL before meals <180 mg/dL all other times of the day Specimen Anatomical Collection Method Collection Time Receive d Time (Source) Location / / Volume Laterality Blood specimen 07/12/2017 8:22 PM 017 8:22 (specimen) EST PM EST Yuna Webber MD POINT OF CARE TEST ORDERABLE S Performing Organization Address City/State/ZIP Code Phon e Number [address] POCT Glucose (07/12/2017 4:02 PM EST) athologist Signature POC Glucose 114 65 - 199 [facility] mg/dL [facility]ORY [...] Address City/State/ZIP [place] [address] POCT Glucose (07/12/2017 11:28 AM EST) athologist Signature POC Glucose 164 65 - 199 [facility] Comment: [...] Address City/State/ZIP Code Phon e Number [address] POCT Glucose (07/12/2017 7:34 AM EST) athologist Signature POC Glucose 109 65 - 199 [facility]/dL [facility] Comment: [...] Address City/State/Z[place] [address] (ABNORMAL) Basic Metabolic Panel (non-fasting) (07/12/2017 4:11 AM EST) athologist Signature Glucose Lvl 92 65 - 199 [facility] [...] or in patients with acute kidney failure. [email or web address] [email or web address] Specimen Anatomical Collection Method Collection Time Receive d Time (Source) Location / / Volume Laterality Blood specimen 07/12/2017 4:11 AM 017 8:57 (specimen) EST AM EST Resulting Agency Comment Spec In Lab Makayla Katie QUINONES CHEMISTRY ORDERABLES Performing Organization Address City/State/ZIP [place] [address] (ABNORMAL) Prothrombin Time (07/12/2017 [...] [facility]/ZIP [place] [address] Potassium (07/12/2017 4:11 AM EST) athologist Signature Potassium 3.8 3.5 - 5.[address] [facility] mmol/L [facility] [...] [facility]/ZIP [place] [address] POCT Glucose (07/12/2017 4:10 AM EST) athologist Signature POC Glucose 90 65 - 199 [facility] [...] [facility]/ZIP [place] [address] POCT Glucose (07/11/2017 11:57 PM EST) athologist Signature POC Glucose 98 65 - 199 [facility] [...] Address City/State/Z[place] [address] POCT Glucose (07/11/2017 8:32 PM EST) P athologist Signature POC Glucose 146 65 - [address] [facility] mg/dL [facility] [...] Address City/State/[place] [address] XR Chest PA & [...] e xtubated, left chest tube removed, and [place]-Suzi catheter removed since the study. Atelectasis at [...] e xtubated, left chest tube removed, and [place]-Suzi catheter removed since the study. Atelectasis at [...] POC Glucose 223 (H) 65 - 199 [facility] mg/dL [facility] Comment: [...] [facility]/ZIP [place] [address] POCT Glucose (07/11/2017 11:55 AM EST) athologist Signature POC Glucose 176 65 - 199 [place] mg/dL [place] [...] Address City/State/Z[place] [address] POCT Glucose (07/11/2017 7:53 AM EST) athologist Signature POC Glucose 189 65 - 199 [facility]/dL [facility] [...] Address City/[facility]/ZIP [facility] Phon e Number [address] POCT Glucose (07/11/2017 4:22 AM EST) athologist Signature POC Glucose 151 65 - 199 [facility] [...] Organization Address City/[facility] Phon e Number [address] Potassium (07/11/2017 2:20 AM EST) athologist Signature Potassium 4.5 3.5 - 5.[address] [facility] mmol/L [facility] [...] Address City/State/ZIP Code Phon e Number [address] POCT Glucose (07/11/2017 12:17 AM EST) athologist Signature POC Glucose 162 65 - 199 [place] mg/dL [place] [...] [facility]/ZIP Code Phon e Number [address] POCT Glucose (07/10/2017 8:47 PM EST) athologist Signature POC Glucose 191 65 - 199 [place] mg/dL [place] [...] [facility]/ZIP Code Phon e [place] [address] POCT Glucose (07/10/2017 4:06 PM EST) athologist Signature POC Glucose 131 65 - 199 [place] mg/dL [place] [...] Address City/State/ZIP [place] [address] POCT Glucose (07/10/2017 3:08 PM EST) athologist Signature POC Glucose 151 65 - 199 [place] mg/dL [place] [...] Address City/State/ZIP Code Phon e Number [address] POCT Glucose (07/10/2017 2:25 PM EST) athologist Signature POC Glucose 146 65 - 199 [facility] mg/dL [facility] LABORATORY [...] Address City/State/ZIP Code Phon e Number [address] POCT Glucose (07/10/2017 1:23 PM EST) athologist Signature POC Glucose 166 65 - 199 [place] mg/dL [place] [...] Address City/State/Z[place] [address] POCT Glucose (07/10/2017 11:52 AM EST) P athologist Signature POC Glucose 157 65 - 199 [place] mg/dL [place] [...] Address City/State/ZIP Code Phon e Number [address] POCT Glucose (07/10/2017 11:01 AM EST) athologist Signature POC Glucose 158 65 - 199 [facility] mg/dL [facility] LABORATORY [...] Address City/State/ZIP Code Phon e Number [address] POCT Glucose (07/10/2017 9:54 AM EST) athologist Signature POC Glucose 160 65 - 199 [place] mg/dL [place] [...] Address City/State/ZIP [place] [address] POCT Glucose (07/10/2017 8:58 AM EST) athologist Signature POC Glucose 183 65 - 199 [place] mg/dL [place] [...] Address City/State/ZIP [place] [address] POCT Glucose (07/10/2017 8:01 AM EST) athologist Signature POC Glucose 173 65 - 199 [place] mg/dL [place] [...] Address City/State/ZIP Code Phon e Number [address] POCT Glucose (07/10/2017 7:05 AM EST) athologist Signature POC Glucose 166 65 - 199 [place] mg/dL [place] [...] Address City/State/ZIP Code Phon e Number [address] POCT Glucose (07/10/2017 6:00 AM EST) P athologist Signature POC Glucose 162 65 - [address] [facility] mg/dL [facility] LABORATORY [...] [place] [address] (ABNORMAL) Differential, Automated (07/10/2017 4:28 AM EST) Patholo gist Method Time Signature Neutrophils % 87.9 % [facility] LABORATORY Neutr Abs (ANC) 10.70 (H) 1.70 - [facility] 6.10 [facility] x10(3)/[facility] L LABORATORY Lymphocytes % 3.9 % [facility] Lymphocytes Abs 0.5 (L) 0.9 - 3.[address] [facility] x10(3)/[facility] LABORATORY Monocytes % 7.0 % [facility] LAB[facility]ORY Monocyte Abs 0.8 0.3 - 0.[address] [facility] x10(3)/[facility] LABORATORY Eosinophils % 0.3 % [facility] LAB[facility]ORY Eosinophils Abs 0.0 0.0 - 0.[address] [facility] x10(3)/[facility] LABORATORY Basophils % 0.2 % [facility] LABORATORY Basophils Abs 0.0 0.0 - 0.[address] [facility] x10(3)/[facility] LABORATORY Immature Gran % 0.70 % [facility] [...] [place] [address] (ABNORMAL) Hemogram (07/10/2017 4:28 AM EST) Analysis Performed At Patho logist Time Signature WBC 12.2 (H) 4.0 - 9.[address] [facility] x10(3)/[facility] LABORATORY RBC 3.31 (L) 4.58 - [facility] 5.54 [facility] x10(6)/[facility] LABORATORY Hemoglobin 9.8 (L) 13.7 - [facility] 16.5 gm/dL [facility] Hematocrit 30.0 (L) 40.5 - [facility] 48.5 % [facility] MCV 90.6 82.9 - [facility] 93.1 [facility] LABORATORY MCH 29.6 27.5 - [facility] 32.1 pg [facility] LABORATORY MCHC 32.7 32.0 - [facility] 35.7 gm/dL [facility] Platelets 135 (L) 145 - [address] [facility] x10(3)/[facility] LABORATORY RDWSD 50.8 (H) 36.0 - [facility] 45.0 [facility] LABORATORY RDWCV 15.4 (H) 11.4 - [facility] 13.8 % [facility] LABORATORY MPV 10.0 7.6 - 12.9 [facility] LABORATORY nRBC % Auto 0.0 % [facility] LABORATORY nRBC Abs Auto 0.000 0.000 - [facility] 0.000 [facility] x10(3)/[facility] LABORATORY Specimen Anatomical Collection Method Collection Time Receive d Time (Source) Location / / Volume Laterality Blood specimen 07/10/2017 4:28 AM 017 4:36 (specimen) EST AM EST Resulting Agency Comment Spec In Lab Yuan Webber MD HEMATOLOGY ORDERABLES Performing Organization Address City/[facility]/ZIP [place] [address] (ABNORMAL) Basic Metabolic Panel (non-fasting) (07/10/2017 4:28 AM EST) P athologist Signature Glucose Lvl 178 65 - [address] [facility] mg/dL [facility] LABORATORY [...] or in patients with acute kidney failure. [email or web address] [email or web address] Specimen Anatomical Collection Method Collection Time Receive d Time (Source) Location / / Volume Laterality Blood specimen 07/10/2017 4:28 AM 017 4:36 (specimen) EST AM EST Resulting Agency Comment Spec In Lab Yuan Webber MD CHEMISTRY ORDERABLES Performing Organization Address City/[facility]/ZIP [place] [address] POCT Glucose (07/10/2017 4:26 AM EST) P athologist Signature POC Glucose 176 65 - 199 [facility] mg/dL [facility] Comment: [...] Address City/State/ZIP [place] [address] (ABNORMAL) POCT Glucose (07/10/2017 3:06 AM EST) athologist Signature POC Glucose 204 (H) 65 - 199 [facility] mg/dL [facility] Comment: [...] Address City/State/ZIP [place] [address] (ABNORMAL) POCT Glucose (07/10/2017 2:10 AM EST) athologist Signature POC Glucose 203 (H) 65 - 199 [facility] mg/dL [facility] Comment: [...] Address City/State/ZIP Code Phon e Number [address] POCT Glucose (07/10/2017 1:09 AM EST) P athologist Signature POC Glucose 196 65 - 199 [place] mg/dL [place] [...] Address City/State/ZIP Code Phon e Number [address] POCT Glucose (07/10/2017 12:10 AM EST) athologist Signature POC Glucose 173 65 - 199 [place] mg/dL [place] [...] Address City/State/ZIP Code Phon e Number [address] POCT Glucose (07/09/2017 11:01 PM EST) athologist Signature POC Glucose 140 65 - 199 [place] mg/dL [place] [...] Address City/State/ZIP [place] [address] POCT Glucose (07/09/2017 10:05 PM EST) athologist Signature POC Glucose 144 65 - 199 [place] mg/dL [facility]OR[facility] Comment: [...] Address City/State/ZIP Code Phon e Number [address] POCT Glucose (07/09/2017 9:31 PM EST) athologist Signature POC Glucose 121 65 - 199 [place] mg/dL [place] [...] Address City/State/ZIP Code Phon e Number [address] POCT Glucose (07/09/2017 9:03 PM EST) athologist Signature POC Glucose 98 65 - 199 [place] mg/dL [place] [...] Address City/State/ZIP Code Phon e Number [address] POCT Glucose (07/09/2017 8:09 PM EST) athologist Signature POC Glucose 117 65 - 199 [place] mg/dL [place] [...] Address City/State/ZIP [place] [address] POCT Glucose (07/09/2017 5:40 PM EST) athologist Signature POC Glucose 155 65 - 199 [place] mg/dL [facility] Comment: [...] Address City/State/ZIP [place] [address] POCT Glucose (07/09/2017 4:24 [...] Address City/State/ZIP Code Phon e Number [address] POCT Glucose (07/09/2017 3:19 PM EST) athologist Signature POC Glucose 166 65 - 199 [place] mg/dL [facility] Comment: [...] Address City/State/ZIP [place] [address] POCT Glucose (07/09/2017 2:26 PM EST) athologist Signature POC Glucose 179 65 - 199 [facility] mg/dL [facility] LABORATORY [...] Address City/State/ZIP [place] [address] (ABNORMAL) POCT Glucose (07/09/2017 1:29 PM EST) athologist Signature POC Glucose 210 (H) 65 - 199 [place] mg/dL [facility] Comment: [...] Address City/State/ZIP [place] [address] POCT Glucose (07/09/2017 12:20 PM EST) athologist Signature POC Glucose 172 65 - 199 [place] mg/dL [place] [...] Address City/State/ZIP Code Phon e Number [address] POCT Glucose (07/09/2017 11:24 AM EST) athologist Signature POC Glucose 156 65 - 199 [facility] mg/dL [facility] LABORATORY [...] Address City/State/ZIP Code Phon e Number [address] POCT Glucose (07/09/2017 11:11 AM EST) athologist Signature POC Glucose 172 65 - 199 [place] mg/dL [place] [...] Address City/State/ZIP Code Phon e Number [address] POCT Glucose (07/09/2017 10:08 AM EST) athologist Signature POC Glucose 176 65 - 199 [place] mg/dL [place] [...] Address City/State/ZIP [place] [address] POCT Glucose (07/09/2017 8:02 AM EST) P athologist Signature POC Glucose 178 65 - [address] [facility] mg/dL [facility] LABORATORY [...] Address City/State/Z[place] [address] (ABNORMAL) BLOOD GAS 2 ARTERIAL (07/09/2017 5:37 AM EST) Analysis Performed At Patho logist Time Signature pH Art 7.36 7.35 - [facility] 7.45 [facility] LABORATORY pCO2 Art 38 35 - [address] [facility] mmHg [facility] LABORATORY pO2 Art 79 (L) 85 - [address] [facility] mmHg [facility] LABORATORY HCO3 Art 20.9 20.0 - [facility] 26.0 [facility] mmol/L [facility] LABORATORY BE Art -4.6 (L) -3.0 - 3.[address] [facility] mmol/L [facility] LABORATORY Hgb Blood Gas 10.5 (L) 13.7 - [facility] 16.5 gm/dL [facility] LABORATORY O2HB Art 93.8 (L) 94.0 - [facility] 97.0 % [facility] LABORATORY COHB Art 0.3 [...] MEDICAL CENTER LABORATORY FIO2 Art 40 % [facility] LABORATORY PF Ratio Art 198 [facility] LABORATORY Specimen Anatomical Collection Method Collection Time Receive d Time (Source) Location / / Volume Laterality Blood specimen 07/09/2017 5:37 AM 017 5:37 (specimen) EST AM EST Yuan Webber MD CHEMISTRY ORDERABLES Performing Organization Address City/State/Z[place] [address] POCT Glucose (07/09/2017 3:27 AM EST) P athologist Signature POC Glucose 192 65 - [address] [facility] mg/dL [facility] LABORATORY [...] [place] [address] (ABNORMAL) Basic Metabolic Panel (non-fasting) (07/09/2017 2:30 AM EST) P athologist Signature Glucose Lvl 179 65 - [address] [facility] mg/dL [facility] LABORATORY [...] or in patients with acute kidney failure. [email or web address] Specimen Anatomical Collection Method Collection Time Receive d Time (Source) Location / / Volume Laterality Blood specimen Venous Draw / 07/09/2017 2:30 AM 2016 2:42 (specimen) Unknown EST AM EST Resulting Agency Comment Spec In Lab Yuan Webber MD CHEMISTRY ORDERABLES Performing Organization Address City/State/[place] [address] (ABNORMAL) Potassium (07/09/2017 2:30 AM EST) P athologist Signature Potassium 5.1 (H) 3.5 - 5.0 [place] mmol/L [facility] LABORATORY Comment: [...] [facility]/ZIP [place] [address] (ABNORMAL) Hemogram (07/09/2017 2:30 AM EST) Analysis Performed At Patho logist Time Signature WBC 12.5 (H) 4.0 - 9.5 [facility] x10(3)/[facility] LABORATORY RBC 3.38 (L) 4.58 - [place] [facility] 5.54 [facility] x10(6)/[facility] LABORATORY Hemoglobin 10.1 (L) 13.7 - [place] 16.5 gm/dL [facility] LABORATORY Hematocrit 30.3 (L) 40.5 - [place] 48.5 % [facility] LABORATORY MCV 89.6 82.9 - [place] [facility] 93.1 [facility] LABORATORY MCH 29.9 27.5 - [place] 32.1 pg [facility] LABORATORY MCHC 33.3 32.0 - [place] 35.7 gm/dL [facility] LABORATORY Platelets 127 (L) 145 - 357 [facility] x10(3)/[facility] LABORATORY RDWSD 49.3 (H) 36.0 - [place] [facility] 45.0 [facility] LABORATORY RDWCV 15.2 (H) 11.4 - [place] 13.8 % [facility] LABORATORY MPV 9.9 7.6 - 12.9 [facility] LABORATORY nRBC % Auto 0.0 % [facility] LABORATORY nRBC Abs Auto 0.000 0.000 - [place] DAVIS 0.000 [facility] x10(3)/[facility] LABORATORY Specimen Anatomical Collection Method Collection Time Receive d Time (Source) Location / / Volume Laterality Blood specimen 07/09/2017 2:30 AM 017 2:41 (specimen) EST AM EST Resulting Agency Comment Spec In Lab Yuan Webber MD HEMATOLOGY ORDERABLES Performing Organization Address City/State/ZIP Code Phon e Number [address] POCT Glucose (07/09/2017 2:10 AM EST) athologist Signature POC Glucose 169 65 - 199 [facility] LABORATORY [...] Address City/State/ZIP Code Phon e Number [address] POCT Glucose (07/09/2017 1:01 AM EST) athologist Signature POC Glucose 173 65 - 199 [facility] LABORATORY Comment: [...] Address City/State/ZIP Code Phon e Number [address] Blood culture (07/09/2017 12:40 AM EST) [facility] [employer] Method Time Signature Blood Culture No growth [place] DAV[place] at 5 days. [facility] LABORATORY Specimen Anatomical [...] [facility]/ZIP Code Phon e Number [address] Blood culture (07/09/2017 12:30 AM EST) [facility] [employer] Method Time Signature Blood Culture No growth [facility] DAVIS at 5 days. [facility] LABORATORY Specimen Anatomical [...] [facility]/Z[place] [address] (ABNORMAL) Urinalysis Microscopic Exam (07/09/2017 12:05 AM EST) Analysis Performed At Patho logist Time Signature RBC UA 32 (H) 0 - 3 /HPF [facility] LABORATORY WBC UA 5 (H) 0 - 3 /HPF [facility] LABORATORY Squam Epith UA <1 <=4 /HPF [facility] LABORATORY Hyaline Cast 17 (H) 0 - 2 /LPF [facility] LABORATORY Gran Cast UA 1 (H) <=0 /LPF [facility] LABORATORY Uric Ac Bianca Rare (A) None /HPF [facility] LABORATORY Specimen (Source) Anatomical Collection Method Collection Time Re ceived Time Location / / Volume Laterality Urine specimen 07/09/2017 12:05 7 obtained via AM EST 12:39 AM EST indwelling urinary catheter (specimen) Resulting Agency Comment Spec In Lab Yuan Webber MD URINE ORDERABLES Performing Organization Address City/State/ZIP Code Phon e Number [address] (ABNORMAL) Urinalysis with reflex Culture (07/09/2017 12:05 AM EST) Patholo gist Method Time Signature Glucose UA Negative Negative [facility] LABORATORY Protein UA 30 (A) Negative [facility] LABORATORY Bilirubin UA Negative Negative [facility] mg/dL [facility] LABORATORY Comment: Clinical correlation required [...] [facility] Nitrite UA Negative Negative [facility] LABORATORY Leukocytes UA Negative Negative [facility] LABORATORY Appearance UA Hazy (A) Clear [facility] LABORATORY Spec Friendship UA 1.025 1.002 - 1.030 [facility] LABORATORY Color UA Yellow Yellow [facility] LABORATORY Culture Reflexed No WHITE [...] City/State/ZIP Code Phon e Number [place] [id number] [facility] LAB[address]ORY Drive POCT Glucose (07/08/2017 11:01 PM EST) P athologist Signature POC Glucose 191 65 - [address] [facility] mg/dL [facility] LABORATORY [...] Address City/State/Z[place] [address] POCT Glucose (07/08/2017 10:04 PM EST) P athologist Signature POC Glucose 198 65 - 199 [facility]dL [facility] LABORATORY Comment: [...] Address City/State/Z[place] [address] Prepare Albumin 5% in [...] Address City/State/ZIP Code Phon e Number [address] POCT Glucose (07/08/2017 8:28 PM EST) P athologist Signature POC Glucose 195 65 - 199 [facility]dL [facility] LABORATORY Comment: [...] [facility]/ZIP [place] [address] (ABNORMAL) POCT Glucose (07/08/2017 7:13 PM EST) P athologist Signature POC Glucose 220 (H) 65 - 199 [facility] mg/dL [facility] LABORATORY Comment: [...] [facility]/ZIP [place] [address] POCT Glucose (07/08/2017 5:04 PM EST) P athologist Signature POC Glucose 147 65 - 199 [facility] LABORATORY [...] Address City/State/ZIP [place] [address] (ABNORMAL) BLOOD GAS 2 ARTERIAL (07/08/2017 4:13 PM EST) Analysis Performed At Patho logist Time Signature pH Art 7.38 7.35 - [facility] 7.45 [facility] LABORATORY pCO2 Art 36 35 - 45 [facility] LABORATORY pO2 Art 91 85 - 104 [facility] LABORATORY HCO3 Art 20.9 20.0 - [facility] 26.0 [facility] mmol/L [facility] LABORATORY BE Art -4.2 (L) -3.0 - 3.[address] [facility] mmol/L [facility] LABORATORY Hgb Blood Gas 11.7 (L) 13.7 - [facility] 16.5 gm/dL [facility] LABORATORY O2HB Art 95.1 94.0 - [facility] 97.0 % [facility] LABORATORY COHB Art 0.6 % [...] MEDICAL CENTER LABORATORY FIO2 Art 40 % [facility] LABORATORY PF Ratio Art 228 [facility] LABORATORY Specimen Anatomical Collection Method Collection Time Receive d Time (Source) Location / / Volume Laterality Blood specimen 07/08/2017 4:13 PM 017 4:13 (specimen) EST PM EST Yuan Webber MD CHEMISTRY ORDERABLES Performing Organization Address City/State/Z[place] [address] POCT Glucose (07/08/2017 4:01 PM EST) athologist Signature POC Glucose 148 65 - 199 [place] mg/dL [place] [...] Address City/State/ZIP Code Phon e Number [address] POCT Glucose (07/08/2017 3:21 PM EST) athologist Signature POC Glucose 118 65 - 199 [facility] mg/dL [facility] LABORATORY [...] Address City/State/ZIP Code Phon e Number [address] POCT Glucose (07/08/2017 2:01 PM EST) athologist Signature POC Glucose 129 65 - 199 [place] [facility] mg/dL [place] [...] Address City/State/ZIP Code Phon e Number [address] POCT Glucose (07/08/2017 11:53 AM EST) athologist Signature POC Glucose 156 65 - 199 [facility]dL [facility] LABORATORY Comment: [...] Address City/State/ZIP [place] [address] POCT Glucose (07/08/2017 11:04 AM EST) athologist Signature POC Glucose 181 65 - 199 [facility] mg/dL [facility] LABORATORY Comment: [...] [facility]/ZIP [place] [address] (ABNORMAL) POCT Glucose (07/08/2017 9:24 AM EST) athologist Signature POC Glucose 203 (H) 65 - 199 [facility] mg/dL [facility] LABORATORY Comment: [...] Address City/State/ZIP [place] [address] APTT (07/08/2017 8:40 AM [...] [facility]/Z[place] [address] (ABNORMAL) Prothrombin Time (07/08/2017 [...] Address City/State/Z[place] [address] (ABNORMAL) POCT Glucose (07/08/2017 7:38 AM EST) athologist Signature POC Glucose 232 (H) 65 - [address] [facility] mg/dL [facility] LABORATORY [...] Address City/State/Z[place] [address] (ABNORMAL) POCT Glucose (07/08/2017 [...] Address City/State/Z[place] [address] (ABNORMAL) POCT Glucose (07/08/2017 [...] Address City/State/Z[place] [address] (ABNORMAL) POCT Glucose (07/08/2017 [...] Address City/State/Z[place] [address] (ABNORMAL) POCT Glucose (07/08/2017 4:52 AM EST) P athologist Signature POC Glucose 257 (H) 65 - [address] [facility] mg/dL [facility] LABORATORY [...] [facility]/ZIP [place] [address] (ABNORMAL) BLOOD GAS 2 ARTERIAL (07/08/2017 4:04 AM EST) Analysis Performed At Patho logist Time Signature pH Art 7.30 (L) 7.35 - [facility] 7.45 [facility] LABORATORY pCO2 Art 41 35 - [address] [facility] mmHg [facility] LABORATORY pO2 Art 83 (L) 85 - [address] [facility] mmHg [facility] LABORATORY HCO3 Art 19.6 (L) 20.0 - [facility] 26.0 [facility] mmol/L [facility] LABORATORY BE Art -6.8 (L) -3.0 - 3.[address] [facility] mmol/L [facility] LABORATORY Hgb Blood Gas 12.2 (L) 13.7 - [facility] 16.5 gm/dL [facility] LABORATORY O2HB Art 93.5 (L) 94.0 - [facility] 97.0 % [facility] [...] [facility] Comment: Noted by chemical instrumentation officer. FIO2 Art 40 % [facility] LABORATORY PF Ratio Art 208 [facility] LABORATORY Specimen Anatomical Collection Method Collection Time Receive d Time (Source) Location / / Volume Laterality Blood specimen 07/08/2017 4:04 AM 017 4:04 (specimen) EST AM EST Daphne Shahid MD CHEMISTRY ORDERABLES Performing Organization Address City/[facility]/ZIP [place] [address] Scan, Peripheral Blood (07/08/2017 [...] [facility]/ZIP [place] [address] (ABNORMAL) Differential, Automated (07/08/2017 4:00 AM EST) [facility] Method Time Signature Neutrophils % 85.4 % [facility] LABORATORY Neutr Abs (ANC) 16.07 (H) 1.70 - [facility] 6.10 [facility] x10(3)/[facility] L LABORATORY Lymphocytes % 3.5 % [facility] LABORATORY Lymphocytes Abs 0.6 (L) 0.9 - 3.[address] [facility] x10(3)/[facility] LABORATORY Monocytes % 10.4 % [facility] LABORATORY Monocyte Abs 2.0 (H) 0.3 - 0.[address] [facility] x10(3)/[facility] LABORATORY Eosinophils % 0.0 % [facility] LABORATORY Eosinophils Abs 0.0 0.0 - 0.[address] [facility] x10(3)/[facility] LABORATORY Basophils % 0.1 % [facility] LABORATORY Basophils Abs 0.0 0.0 - 0.[address] [facility] x10(3)/[facility] LABORATORY Immature Gran % 0.60 % [facility] [...] [place] [address] (ABNORMAL) Hemogram (07/08/2017 4:00 AM EST) Analysis Performed At Patho logist Time Signature WBC 18.8 (H) 4.0 - 9.5 [facility] x[facility](3[facility] LABORATORY RBC 4.00 (L) 4.58 - [facility] Z[facility]AN 5.54 [facility] x10(6)/[facility] LABORATORY Hemoglobin 11.9 (L) 13.7 - [facility] 16.5 gm/dL [facility] LABORATORY Hematocrit 35.9 (L) 40.5 - [facility] 48.5 % [facility] LABORATORY MCV 89.8 82.9 - [facility] 93.1 [facility] LABORATORY MCH 29.8 27.5 - [facility] 32.1 pg [facility] LABORATORY MCHC 33.1 32.0 - [facility] 35.[facility] gm/dL [facility] LABORATORY Platelets 232 145 - [address] [facility] x10(3)/[facility] LABORATORY RDWSD 47.6 (H) 36.0 - [facility] 45.0 [facility] LABORATORY RDWCV 14.5 (H) 11.4 - [facility] 13.8 % [facility] LABORATORY MPV 9.5 7.6 - 12.9 [facility] LAB[facility] nRBC % Auto 0.0 % [facility] LABORATORY nRBC Abs Auto 0.000 0.000 - [place] RYAN 0.000 [facility] x10(3)/[facility] LABORATORY Specimen Anatomical Collection Method Collection Time Receive d Time (Source) Location / / Volume Laterality Blood specimen 07/08/2017 4:00 AM 017 4:09 (specimen) EST AM EST Resulting Agency Comment Spec In Lab Yuan Webber MD HEMATOLOGY ORDERABLES Performing Organization Address City/State/Z[place] [address] (ABNORMAL) Electrolytes panel (07/08/2017 4:00 AM EST) P athologist Signature Sodium 139 135 - [address] [facility] mmol/L [facility] LABORATORY Potassium 4.7 3.5 - 5.0 [facility]/L [facility] LABORATORY Comment: result rechecked-JLK Please [...] [place] [address] (ABNORMAL) Cardiac Enzymes (LEB/CGP) (07/08/2017 4:00 AM EST) P athologist Signature Troponin-T 1.88 (H) 0.00 - [facility] 0.00 ng/mL [facility] [...] sample may be indicated. Reference: Third [place] Definition of Myocardial Infarction. Journal of the [place] [employer] 2012;60:1581-98 CK, Total 413 [...] [facility]/ZIP Code Phon e Number [address] (ABNORMAL) Glucose, fasting (07/08/2017 4:00 AM EST) athologist Signature Glucose 287 (H) 65 - [address] [facility] Fasting mg/dL [facility] [...] of Diabetes Mellitus, Position Statement from the [place] [employer]. ??Diabete s Care, Volume 33, Supplement 1, Jul 2009 Specimen Anatomical Collection Method Collection Time Receive d Time (Source) Location / / Volume Laterality Blood specimen 07/08/2017 4:00 AM 017 4:09 (specimen) EST AM EST Resulting Agency Comment Spec In Lab Yuan Webber MD CHEMISTRY ORDERABLES Performing Organization Address City/[facility]/[place] [facility] [place] [address] (ABNORMAL) Creatinine (07/08/2017 4:00 AM EST) Analysis Performed At Patho logist Time Signature Creatinine 1.55 (H) 0.80 - [facility] 1.[facility] mg/dL [facility] LABORATORY Estimated GFR 44 (L) >=60 [facility] LABORATORY Comment: The reported eGFR should be multiplied b y 1.2 for patients. The MDRD is not an appropriate measure o f renal function for patients with body mass extremes or in patients with acute kidney failure. http://TranscribeMe/DHnkdep http://TranscribeMe/DHMCnkf Specimen Anatomical Collection Method Collection Time Receive d Time (Source) Location / / Volume Laterality Blood specimen 07/08/2017 4:00 AM 017 4:09 (specimen) EST AM EST Resulting Agency Comment Spec In Lab Yuan Webber MD CHEMISTRY ORDERABLES Performing Organization Address City/[facility]/ZIP [facility] [place] Ph[place] Number [address] BUN (07/08/2017 4:00 AM EST) P athologist Signature BUN 16 10 - 20 [facility] mg/dL [facility] LABORATORY Specimen Anatomical Collection Method Collection Time Receive d Time (Source) Location / / Volume Laterality Blood specimen 07/08/2017 4:00 AM 017 4:09 (specimen) EST AM EST Resulting Agency Comment Spec In Lab Yuan Webber MD CHEMISTRY ORDERABLES Performing Organization Address City/[facility]/ZIP [facility] [place] [address] (ABNORMAL) POCT Glucose (07/08/2017 3:00 AM EST) P athologist Signature POC Glucose 273 (H) 65 - 199 [facility] mg/dL [facility] LABORATORY Comment: [...] Address City/State/ZIP [place] [address] (ABNORMAL) POCT Glucose (07/08/2017 1:57 AM EST) athologist Signature POC Glucose 288 (H) 65 - 199 [facility] mg/dL [facility] LABORATORY Comment: [...] Address City/State/ZIP [place] [address] (ABNORMAL) POCT Glucose (07/08/2017 1:01 AM EST) athologist Signature POC Glucose 315 (H) 65 - 199 [facility]/dL [facility] LABORATORY [...] Address City/State/ZIP [place] [address] (ABNORMAL) BLOOD GAS 2 ARTERIAL (07/08/2017 12:09 AM EST) athologist Signature pH Art 7.26 7.35 - [facility] (Critical) 7.45 [facility] LABORATORY Comment: Noted by chemical [...] [facility] Comment: Noted by chemical instrumentation officer. FIO2 Art 40 % [facility] LABORATORY PF Ratio Art 240 [place] [...] [place] [address] (ABNORMAL) POCT Glucose (07/07/2017 10:56 PM EST) athologist Signature POC Glucose 292 (H) 65 - [address] [facility] mg/dL [facility] LABORATORY [...] [place] [address] (ABNORMAL) BLOOD GAS 2 ARTERIAL (07/07/2017 10:04 PM EST) athologist Signature pH Art 7.22 7.35 - [facility] (Critical) 7.45 [facility] LABORATORY Comment: Noted by chemical [...] [facility] Comment: Noted by chemical instrumentation officer. FIO2 Art 40 % [facility] LABORATORY PF Ratio Art 235 [facility] LABORATORY Specimen Anatomical Collection Method Collection Time Receive d Time (Source) Location / / Volume Laterality Blood specimen 07/07/2017 10:04 7 (specimen) PM EST 10:04 PM EST Daphne Shahid MD CHEMISTRY ORDERABLES Performing Organization Address City/State/ZIP Code Phon e Number [address] (ABNORMAL) Hemoglobin (07/07/2017 10:00 PM EST) P athologist Signature Hemoglobin 12.8 (L) 13.7 - [facility] 16.5 gm/dL [facility] LABORATORY Specimen Anatomical Collection Method Collection Time Receive d Time (Source) Location / / Volume Laterality Blood specimen 07/07/2017 10:00 7 (specimen) PM EST 10:13 PM EST Resulting Agency Comment Spec In Lab Yuan Webber MD HEMATOLOGY ORDERABLES Performing Organization Address City/State/ZIP Code Phon e Number [address] (ABNORMAL) Potassium (07/07/2017 10:00 PM EST) P athologist Signature Potassium 3.4 (L) 3.5 - 5.[address] [facility] mmol/L [facility] LABORATORY [...] [facility]/ZIP [place] [address] (ABNORMAL) POCT Glucose (07/07/2017 8:49 PM EST) athologist Signature POC Glucose 241 (H) 65 - [address] [facility] mg/dL [facility] LABORATORY [...] [facility]/ZIP [place] [address] [address] Prepare Albumin 5% in [...] [facility]/[place] [address] EKG 12 Lead (07/07/2017 7:17 PM EST) Component Value Ref Range Test Analysis Performed Pathologis t Method Time At Signature Ventricular rate 75 BPM MUSE SYSTEM Atrial Rate 75 BPM MUSE SYSTEM P-R Interval 168 ms MUSE SYSTEM QRS Duration 104 ms MUSE SYSTEM Q-T Interval 462 ms MUSE SYSTEM QTC Calculated 515 ms MUSE SYSTEM (Bezet) Calculated P [place] 52 degrees MUSE SYSTEM Calculated R [place] -40 degrees MUSE SYSTEM Calculated T [place] 39 degrees MUSE SYSTEM INTERPRETATION Normal sinus [...] Art 7.21 7.35 - [facility] (Critical) 7.45 [facility] LABORATORY Comment: Noted by chemical [...] mmol/L [facility] LABORATORY Comment: Noted by chemical instrumentation [...] [facility] LAB[facility] Comment: Noted by chemical instrumentation officer. FIO2 Art 100 % [facility] LABORATORY PF Ratio Art 238 [facility] LABORATORY Specimen Anatomical Collection Method Collection Time Receive d Time (Source) Location / / Volume Laterality Blood specimen 07/07/2017 6:57 PM 017 6:57 (specimen) EST PM EST Daphne Shahid MD CHEMISTRY ORDERABLES Performing Organization Address City/State/[place] [address] (ABNORMAL) BLOOD GAS 2 ARTERIAL (07/07/2017 5:31 PM EST) P athologist Signature pH Art 7.29 7.35 - [facility] (Critical) 7.45 [facility] LABORATORY Comment: Noted by chemical [...] [place] [address] Fibrinogen (07/07/2017 5:30 PM EST) P athologist Signature Fibrinogen 224 180 - [address] [facility] mg/dL [facility] LABORATORY Comment: Called by: JEET, [...] HEMATOLOGY ORDERABLES Performing Organization Address [facility] Phon e Number [address] APTT (07/07/2017 5:30 [...] HEMATOLOGY ORDERABLES Performing Organization Address [facility] [place] [address] (ABNORMAL) Prothrombin Time (07/07/2017 [...] HEMATOLOGY ORDERABLES Performing Organization Address [facility]/ZIP [place] [address] (ABNORMAL) Hemogram (07/07/2017 5:30 PM EST) athologist Signature WBC 19.6 (H) 4.0 - 9.[address] [facility] x10(3)/[facility] LABORATORY RBC 3.08 (L) 4.58 - [facility] 5.54 [facility] x10(6)/[facility] LABORATORY Hemoglobin 9.2 (L) 13.7 - [facility] 16.5 gm/dL [facility] Hematocrit 28.0 (L) 40.5 - [facility] 48.5 % [facility] LABORATORY Comment: This result has been called to MONICA WEINSTEIN LUISA by DONALD GROSSMAN on 07 07 2017 at 1759, and has been read back. MCV 90.9 82.9 - 93.1 [facility] LABORATORY MCH 29.9 27.5 - 32.1 pg [facility] LABORATORY MCHC 32.9 32.0 - 35.7 gm/dL [facility] LABORATORY Platelets 155 145 - 357 x10(3)/Tanner [...] Auto 0.000 0.000 - 0.000 x10(3)/[facility] LABORATORY Specimen Anatomical Collection Method Collection Time Receive d Time (Source) Location / / Volume Laterality Blood specimen 07/07/2017 5:30 PM 017 5:34 (specimen) EST PM EST Resulting Agency Comment Spec In Lab Yifan Perez MD HEMATOLOGY ORDERABLES Performing Organization Address City/State/[place] [address] Prepare Platelets, Apheresis (07/07/2017 5:00 PM EST) P athologist Signature Dispensed? Yes [facility] LABORATORY Specimen Anatomical Collection Method Collection Time Receive d Time (Source) Location / / Volume Laterality Blood specimen 07/07/2017 5:00 PM 017 4:58 (specimen) EST PM EST Daphne Shahid MD BLOOD BANK ORDERABLES Performing Organization Address City/State/Z[place] [address] Platelet count (07/07/2017 4:55 PM EST) athologist Signature Platelets 177 145 - [address] [facility] x10(3)/[facility] LABORATORY Plat Immature 1.5 0.0 - 7.[address] [facility] % % [facility] LABORATORY Comment: Limitation of the Immature Platelet Frac tion (IPF)-May be less reliable when the platelet count is less than 96l413/u L due to statistical imprecision. The IPF [...] in a decreased state of production. References: [employer] The Clinical Value of the Immature Platelet Fraction (IPF) in Cell Recovery Document Number 10-1143 12/2010 [employer] The Role of the Imm ature [...] [facility]/Z[place] [address] (ABNORMAL) Hemoglobin and Hematocrit, blood (07/07/2017 4:55 PM EST) P athologist Signature Hemoglobin 9.1 (L) 13.7 - 16.5 [facility] LABORATORY Comment: This result [...] [facility]/ZIP [place] [address] (ABNORMAL) BLOOD GAS 2 ARTERIAL (07/07/2017 4:38 PM EST) Analysis Performed At Patho logist Time Signature pH Art 7.37 7.35 - [facility] 7.45 [facility] LABORATORY pCO2 Art 44 35 - [address] [facility] mmHg [facility] LABORATORY pO2 Art 322 (H) 85 - [address] [facility] mmHg [facility] LABORATORY HCO3 Art 24.9 20.0 - [facility] 26.0 [facility] mmol/L [facility] LABORATORY BE Art -0.4 -3.0 - 3.[address] [facility] mmol/L [facility] LABORATORY Hgb Blood Gas 10.1 (L) 13.7 - [facility] 16.5 gm/dL [facility] LABORATORY O2HB Art 98.7 (H) 94.0 - [facility] 97.0 % [facility] LABORATORY COHB Art 0.1 % [...] [facility] Comment: Noted by chemical instrumentation [...] [place] [address] (ABNORMAL) BLOOD GAS 2 VENOUS (07/07/2017 4:06 PM EST) Analysis Performed At Patho logist Time Signature pH Cody 7.31 (L) 7.32 - [facility] 7.42 [facility] LABORATORY pCO2 Cody 47 41 - 51 [facility] LABORATORY pO2 [place] 53 (H) 25 - 40 [facility] LABORATORY HCO3 Cody 22.7 mmol/L [facility] LABORATORY BE Cody -3.7 mmol/L [facility] LABORATORY Hgb Blood Gas 10.2 (L) 13.7 - [facility] 16.5 gm/dL [facility] LABORATORY O2HB [place] 81.0 % [...] [facility] Comment: Noted by chemical instrumentation [...] [facility] BGas Source Venous [facility] LABORATORY Specimen Anatomical Collection Method Collection Time Receive d Time (Source) Location / / Volume Laterality Blood specimen 07/07/2017 4:06 PM 017 4:06 (specimen) EST PM EST Daphne Shahid MD CHEMISTRY ORDERABLES Performing Organization Address City/State/ZIP [place] [address] (ABNORMAL) BLOOD GAS 2 ARTERIAL (07/07/2017 4:05 PM EST) Analysis Performed At Patho logist Time Signature pH Art 7.36 7.35 - [facility] 7.45 [facility] LABORATORY pCO2 Art 40 35 - 45 [facility] LABORATORY pO2 Art 282 (H) 85 - 104 [facility] LABORATORY HCO3 Art 22.1 20.0 - [facility] 26.0 [facility] mmol/L [facility] LABORATORY BE Art -3.4 (L) -3.0 - 3.[address] [facility] mmol/L [facility] LABORATORY Hgb Blood Gas 10.2 (L) 13.7 - [facility] 16.5 gm/dL [facility] LABORATORY O2HB Art 98.4 (H) 94.0 - [facility] 97.0 % [facility] LABORATORY COHB Art 0.3 [...] [facility] Comment: Noted by chemical instrumentation [...] [place] [address] (ABNORMAL) BLOOD GAS 2 ARTERIAL (07/07/2017 2:29 PM EST) Analysis Performed At Patho logist Time Signature pH Art 7.43 7.35 - [facility] 7.45 [facility] LABORATORY pCO2 Art 36 35 - 45 [facility] LABORATORY pO2 Art 221 (H) 85 - 104 [facility] LABORATORY HCO3 Art 23.2 20.0 - [facility] 26.0 [facility] mmol/L [facility] LABORATORY BE Art -1.2 -3.0 - 3.[address] [facility] mmol/L [facility] LABORATORY Hgb Blood Gas 13.9 13.7 - [facility] 16.5 gm/dL [facility] O2HB Art 97.8 (H) 94.0 - [facility] 97.0 % [facility] LABORATORY COHB Art 1.1 % [...] Address City/State/Z[place] [address] Prepare Coag Factors (Non-Hemophilia) (07/07/2017 1:25 PM EST) P athologist Signature Dispensed? Yes [facility] LABORATORY Specimen Anatomical Collection Method Collection Time Receive d Time (Source) Location / / Volume Laterality Blood specimen 07/07/2017 1:25 PM 017 1:21 (specimen) EST PM EST Daphne Shahid MD BLOOD BANK ORDERABLES Performing Organization Address City/State/ZIP Code Phon e Number [address] Prepare RBC (07/07/2017 1:10 PM EST) athologist Signature Dispensed? Yes [facility] LABORATORY Specimen Anatomical Collection Method Collection Time Receive d Time (Source) Location / / Volume Laterality Blood specimen 07/07/2017 1:10 PM 017 1:05 (specimen) EST PM EST Daphne Shahid MD BLOOD BANK ORDERABLES Performing Organization Address City/State/Z[place] [address] POCT Glucose (07/07/2017 11:56 AM EST) athologist Signature POC Glucose 188 65 - 199 [facility] mg/dL [facility] LABORATORY [...] Address City/State/ZIP [place] [address] POCT Glucose (07/07/2017 11:05 AM EST) athologist Signature POC Glucose 168 65 - 199 [facility] LABORATORY Comment: [...] Address City/State/ZIP [place] [address] POCT Glucose (07/07/2017 10:02 AM EST) P athologist Signature POC Glucose 191 65 - 199 [place] mg/dL [place] [...] Address City/State/Z[place] [address] POCT Glucose (07/07/2017 7:53 AM EST) athologist Signature POC Glucose 178 65 - 199 [place] [facility] mg/dL [place] [...] Address City/State/ZIP Code Phon e Number [address] POCT Glucose (07/07/2017 7:03 AM EST) athologist Signature POC Glucose 188 65 - 199 [place] [facility] mg/dL [place] [...] Address City/State/Z[place] [address] (ABNORMAL) POCT Glucose (07/07/2017 6:17 AM EST) athologist Signature POC Glucose 207 (H) 65 - 199 [facility]/dL [facility] LABORATORY Comment: [...] [facility]/ZIP Code Phon e Number [address] Differential, Automated (07/07/2017 5:15 AM EST) athologist Signature Neutrophils % 69.7 % [facility] LABORATORY Neutr Abs (ANC) 5.32 1.70 - [facility] 6.10 [facility] x10(3)/[facility] LABORATORY Lymphocytes % 16.3 % [facility] LABORATORY Lymphocytes Abs 1.2 0.9 - 3.[address] [facility] x10(3)/[facility] LABORATORY Monocytes % 10.5 % [facility] LABORATORY Monocyte Abs 0.8 0.3 - 0.[address] [facility] x10(3)/[facility] LABORATORY Eosinophils % 2.5 % [facility] LABORATORY Eosinophils Abs 0.2 0.0 - 0.[address] [facility] x10(3)/[facility] LABORATORY Basophils % 0.7 % [facility] LABORATORY Basophils Abs 0.0 0.0 - 0.[address] [facility] x10(3)/[facility] LABORATORY Immature Gran % 0.30 % [...] 0.04 x10(3)/[facility] MAR Y [facility] LABORATORY Specimen Anatomical Collection Method Collection Time Receive d Time (Source) Location / / Volume Laterality Blood specimen 07/07/2017 5:15 AM 017 5:34 (specimen) EST AM EST Resulting Agency Comment Spec In Lab Daphne Shahid MD HEMATOLOGY ORDERABLES Performing Organization Address City/State/ZIP [place] [address] (ABNORMAL) Hemogram (07/07/2017 5:15 AM EST) Analysis Performed At Patho logist Time Signature WBC 7.6 4.0 - 9.[address] [facility] x10(3)/[facility] LABORATORY RBC 4.82 4.58 - [facility] 5.54 [facility] x10(6)/[facility] Hemoglobin 14.4 13.7 - [facility] 16.5 gm/dL [facility] LAB[facility]ATORY Hematocrit 42.1 40.5 - [facility] 48.5 % [facility] LABORATORY MCV 87.3 82.9 - [facility] 93.1 [facility] LABORATORY MCH 29.9 27.5 - [facility] 32.1 pg [facility] LABORATORY MCHC 34.2 32.0 - [facility] 35.7 gm/dL [facility] LABORATORY Platelets 188 145 - [address] [facility] x10(3)/[facility] LABORATORY RDWSD 45.1 (H) 36.0 - [facility] 45.0 [facility] LABORATORY RDWCV 14.3 (H) 11.4 - [facility] 13.8 % [facility] LABORATORY MPV 9.4 7.6 - 12.9 [facility] LABORATORY nRBC % Auto 0.0 % [facility] LABORATORY nRBC Abs Auto 0.000 0.000 - [facility] 0.000 [facility] x10(3)/[facility] LABORATORY Specimen Anatomical Collection Method Collection Time Receive d Time (Source) Location / / Volume Laterality Blood specimen 07/07/2017 5:15 AM 017 5:34 (specimen) EST AM EST Resulting Agency Comment Spec In Lab Daphne Shahid MD HEMATOLOGY ORDERABLES Performing Organization Address City/[facility]/[place] [address] (ABNORMAL) APTT (07/07/2017 5:15 [...] [facility]/Z[place] [address] Magnesium (07/07/2017 5:15 AM EST) athologist Signature Magnesium 0.94 0.69 - 1.[address] [facility] mmol/L [facility] LABORATORY Specimen Anatomical Collection Method Collection Time Receive d Time (Source) Location / / Volume Laterality Blood specimen 07/07/2017 5:15 AM 017 5:34 (specimen) EST AM EST Resulting Agency Comment Spec In Lab Daphne Shahid MD CHEMISTRY ORDERABLES Performing Organization Address City/[facility]/ZIP [place] [address] (ABNORMAL) Basic Metabolic Panel (non-fasting) (07/07/2017 5:15 AM EST) athologist Signature Glucose Lvl 203 (H) 65 - [address] [facility] mg/dL [facility] LABORATORY [...] or in patients with acute kidney failure. [email or web address] Specimen Anatomical Collection Method Collection Time Receive d Time (Source) Location / / Volume Laterality Blood specimen 07/07/2017 5:15 AM 017 5:34 (specimen) EST AM EST Resulting Agency Comment Spec In Lab Daphne Shahid MD CHEMISTRY ORDERABLES Performing Organization Address City/State/ZIP [place] [address] (ABNORMAL) Cardiac Enzymes (LEB/CGP) (07/07/2017 5:15 AM EST) athologist Signature Troponin-T 2.07 (H) 0.00 - [facility] 0.[facility] ng/mL [facility] LABORATORY [...] sample may be indicated. Reference: Third [place] Definition of Myocardial Infarction. Journal of the [place] [employer] 2012;60:1581-98 CK, Total 88 [...] [place] [address] POCT Glucose (07/07/2017 5:01 AM EST) P athologist Signature POC Glucose 182 65 - [address] [facility] mg/dL [facility] LABORATORY [...] Address City/State/ZIP Code Phon e Number [address] POCT Glucose (07/07/2017 4:08 AM EST) P athologist Signature POC Glucose 199 65 - 199 [facility] mg/dL [facility] LABORATORY [...] [facility]/ZIP Code Phon e Number [address] POCT Glucose (07/07/2017 3:03 AM EST) athologist Signature POC Glucose 188 65 - 199 [facility] mg/dL [place] [...] Address City/State/ZIP [place] [address] (ABNORMAL) POCT Glucose (07/07/2017 2:08 AM EST) athologist Signature POC Glucose 200 (H) 65 - 199 [facility] mg/dL [facility] LABORATORY [...] Address City/State/Z[place] [address] (ABNORMAL) POCT Glucose (07/07/2017 1:31 AM EST) P athologist Signature POC Glucose 209 (H) 65 - 199 [facility]/dL [facility] LABORATORY [...] Address City/State/ZIP [place] [address] XR Chest PA or [...] Signature POC Glucose 161 65 - 199 [facility]/dL [facility] LABORATORY Comment: [...] [facility]/ZIP Code Phon e Number [address] (ABNORMAL) APTT (07/07/2017 12:00 AM EST) athologist [facility] PTT 103 (H) 25 - 35 sec [...] Address City/State/ZIP [place] [address] POCT Glucose (07/06/2017 9:55 PM EST) athologist Signature POC Glucose 109 65 - 199 [facility]/dL [facility] LABORATORY [...] Address City/State/ZIP Code Phon e Number [address] POCT Glucose (07/06/2017 9:04 PM EST) athologist Signature POC Glucose 120 65 - 199 [facility] mg/dL [place] [...] Address City/State/ZIP [place] [address] POCT Glucose (07/06/2017 7:45 PM EST) athologist Signature POC Glucose 158 65 - 199 [facility] mg/dL [facility] LABORATORY Comment: [...] [facility]/ZIP [place] [address] Potassium (07/06/2017 7:40 PM EST) athologist Signature Potassium 3.9 3.5 - 5.0 [facility] mmol/L [facility] LABORATORY Comment: [...] [place] [address] (ABNORMAL) Cardiac Enzymes (LEB/CGP) (07/06/2017 7:40 PM EST) athologist Signature Troponin-T 2.27 (H) 0.00 - [facility] 0.00 ng/mL [facility] LABORATORY [...] sample may be indicated. Reference: Third [place] Definition of Myocardial Infarction. Journal of the [place] College [employer] Cardiology 2012;60:1581-98 CK, Total 93 0 - 200 unit/L [facility] LABORATORY Specimen Anatomical Collection Method Collection Time Receive d Time (Source) Location / / Volume Laterality Blood specimen 07/06/2017 7:40 PM 017 7:52 (specimen) EST PM EST Resulting Agency Comment Spec In Lab Daphne Shahid MD CHEMISTRY ORDERABLES Performing Organization Address City/State/ZIP [place] [address] (ABNORMAL) POCT Glucose (07/06/2017 7:13 PM EST) P athologist Signature POC Glucose 200 (H) 65 - [address] [facility] mg/dL [facility] LABORATORY [...] Address City/State/ZIP Code Phon e Number [address] (ABNORMAL) APTT (07/06/2017 6:15 [...] Address City/State/Z[place] [address] (ABNORMAL) POCT Glucose (07/06/2017 6:03 PM EST) athologist Signature POC Glucose 236 (H) 65 - [address] [facility] mg/dL [facility] LABORATORY [...] Address City/State/Z[place] [address] (ABNORMAL) POCT Glucose (07/06/2017 [...] [facility]/Z[place] [address] (ABNORMAL) POCT Glucose (07/06/2017 [...] Address City/State/Z[place] [address] POCT Glucose (07/06/2017 2:59 PM EST) P athologist Signature POC Glucose 178 65 - 199 [facility] mg/dL [place] [...] [facility]/ZIP [place] [address] (ABNORMAL) Cardiac Enzymes (LEB/CGP) (07/06/2017 2:10 PM EST) P athologist Signature Troponin-T 2.34 (H) 0.00 - [facility] ng/mL [facility] LABORATORY [...] sample may be indicated. Reference: Third [place] Definition of Myocardial Infarction. Journal of the [place] [employer] Cardiology 2012;60:1581-98 CK, Total 101 [...] [facility]/Z[place] [address] POCT Glucose (07/06/2017 2:08 PM EST) P athologist Signature POC Glucose 192 65 - 199 [facility] mg/dL [place] [...] Address City/State/ZIP Code Phon e Number [address] POCT Glucose (07/06/2017 1:04 PM EST) athologist Signature POC Glucose 162 65 - 199 [facility] mg/dL [facility] LABORATORY Comment: [...] Address City/State/ZIP Code Phon e Number [address] POCT Glucose (07/06/2017 12:05 PM EST) athologist Signature POC Glucose 196 65 - 199 [facility] mg/dL [facility] LABORATORY Comment: [...] Address City/State/ZIP Code Phon e Number [address] EKG 12 Lead (07/06/2017 12:00 PM EST) Component Value Ref Range Test Analysis Performed Pathologis t Method Time At Signature Ventricular rate 91 BPM MUSE SYSTEM Atrial Rate 91 BPM MUSE SYSTEM P-R Interval 140 ms MUSE SYSTEM QRS Duration 94 ms MUSE SYSTEM Q-T Interval 394 ms MUSE SYSTEM QTC Calculated 484 ms MUSE SYSTEM (Bezet) Calculated P [place] 36 degrees MUSE SYSTEM Calculated R [place] -19 degrees MUSE SYSTEM Calculated T [place] 104 degrees MUSE SYSTEM INTERPRETATION Normal sinus rhythm MUSE SYSTEM 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) ST & T wave abnormality, consider lateral ischemia Abnormal ECG When compared with ECG of 05-JUL-2017 20:39, No significant change was found Confirmed by MD Luci, Taurus Braun ([id number]) on 07/06/2017 5:07:33 PM Specimen Anatomical Collection Method Collection Time Receive d Time (Source) Location / / Volume Laterality 07/06/2017 12:00 07/06/2017 5:07 PM EST PM EST Daphne Shahid MD ECG ORDERABLES Performing Organization Address City/[facility]/ZIP Code Phon e Number MUSE SYSTEM ABORH Recheck Status (07/06/2017 12:00 PM EST) [facility] Method Time Signature ABORH Type Completed [facility] LABORATORY Specimen Anatomical Collection Method Collection Time Receive d Time (Source) Location / / Volume Laterality Blood specimen 07/06/2017 12:00 7 (specimen) PM EST 12:24 PM EST Resulting Agency Comment Spec In Lab Daphne Shahid MD BLOOD BANK ORDERABLES Performing Organization Address City/[facility]/[place]IP [place] [address] Antibody screen (07/06/2017 12:00 PM EST) [facility] [employer] Method Time Signature Ab Screen Negative [facility] LABORATORY Expires at 07/09/[address] [facility] [id number] on: [facility] LABORATORY Specimen Anatomical Collection Method Collection Time Receive d Time (Source) Location / / Volume Laterality Blood specimen 07/06/2017 12:00 7 (specimen) PM EST 12:24 PM EST Resulting Agency Comment Spec In Lab Daphne Shahid MD BLOOD BANK ORDERABLES Performing Organization Address City/[facility]/ZIP Code Phon e Number [address] ABO/Rh Typing (07/06/2017 12:00 [...] Address City/State/[place] [address] Prothrombin Time (07/06/2017 11:24 [...] [facility]/ZIP Code Phon e Number [place] [id number]OS[address] (ABNORMAL) APTT (07/06/2017 11:24 [...] Address City/State/ZIP Code Phon e Number [address] POCT Glucose (07/06/2017 11:02 AM EST) athologist Signature POC Glucose 187 65 - 199 [place]AN mg/dL [place] [...] Address City/State/[place] [address] POCT Glucose (07/06/2017 10:18 AM EST) athologist Signature POC Glucose 193 65 - 199 [place] RYAN mg/dL [place] [...] Address City/State/ZIP [place] [address] POCT Glucose (07/06/2017 9:25 AM EST) athologist Signature POC Glucose 182 65 - 199 [place] R[place]AN mg/dL [place] [...] [facility]/ZIP [place] [address] (ABNORMAL) Cardiac Enzymes (LEB/CGP) (07/06/2017 8:10 AM EST) athologist Signature Troponin-T 2.26 (H) 0.00 - [place] RYAN 0.00 ng/mL [facility] LABORATORY [...] sample may be indicated. Reference: Third [place] Definition of Myocardial Infarction. Journal of the [place] College of Cardiology 2012;60:1581-98 CK, Total 124 0 - 200 unit/L [facility] LABORATORY Specimen Anatomical Collection Method Collection Time Receive d Time (Source) Location / / Volume Laterality Blood specimen 07/06/2017 8:10 AM 017 8:23 (specimen) EST AM EST Resulting Agency Comment Spec In Lab Daphne Shahid MD CHEMISTRY ORDERABLES Performing Organization Address City/State/ZIP Code Phon e Number [place] Magnesium (07/06/2017 8:10 AM EST) athologist Signature Magnesium 0.84 0.69 - 1.[address] [facility] mmol/L [facility] LABORATORY Specimen Anatomical Collection Method Collection Time Receive d Time (Source) Location / / Volume Laterality Blood specimen 07/06/2017 8:10 AM 017 8:21 (specimen) EST AM EST Resulting Agency Comment Spec In Lab Daphne Shahid MD CHEMISTRY ORDERABLES Performing Organization Address City/State/ZIP Code Phon e Number [address] (ABNORMAL) Basic Metabolic Panel (non-fasting) (07/06/2017 8:10 AM EST) athologist Signature Glucose Lvl 199 65 - [address] [facility] mg/dL [facility] LABORATORY [...] or in patients with acute kidney failure. [email or web address] Specimen Anatomical Collection Method Collection Time Receive d Time (Source) Location / / Volume Laterality Blood specimen 07/06/2017 8:10 AM 017 8:21 (specimen) EST AM EST Resulting Agency Comment Spec In Lab Daphne Shahid MD CHEMISTRY ORDERABLES Performing Organization Address City/[facility]/ZIP Code Phon e Number [address] POCT Glucose (07/06/2017 7:34 AM EST) athologist Signature POC Glucose 198 65 - 199 [facility] LABORATORY [...] [facility]/ZIP Code Phon e Number [address] POCT Glucose (07/06/2017 7:03 AM EST) athologist Signature POC Glucose 181 65 - 199 [facility] LABORATORY Comment: [...] [facility]/ZIP Code Phon e Number [address] XR Chest PA [...] 172 65 - [address] [facility] mg/dL [facility] LABORATORY [...] Address City/State/ZIP Code Phon e Number [address] POCT Glucose (07/06/2017 5:08 AM EST) athologist Signature POC Glucose 154 65 - 199 [place] mg/dL [place] [...] Address City/State/ZIP Code Phon e Number [address] POCT Glucose (07/06/2017 4:05 AM EST) athologist Signature POC Glucose 142 65 - 199 [place] R[place] mg/dL [place] [...] Address City/State/Z[place] [address] POCT Glucose (07/06/2017 3:00 AM EST) athologist Signature POC Glucose 116 65 - 199 [facility] mg/dL [facility] LABORATORY [...] [facility]/ZIP [place] [address] [facility] [address] Drive Potassium (07/06/2017 2:20 AM EST) athologist Signature Potassium 3.9 3.5 - 5.0 [facility] mmol/L [facility] LABORATORY Comment: [...] [facility]/ZIP Code Phon e Number [address] Differential, Automated (07/06/2017 2:20 AM EST) athologist Signature Neutrophils % 72.9 % [facility] LABORATORY Neutr Abs (ANC) 5.53 1.70 - [facility] 6.10 [facility] x10(3)/[facility] LABORATORY Lymphocytes % 16.4 % [facility] LABORATORY Lymphocytes Abs 1.2 0.9 - 3.[address] [facility] x10(3)/[facility] LABORATORY Monocytes % 9.4 % [facility] LABORATORY Monocyte Abs 0.7 0.3 - 0.[address] [facility] x10(3)/[facility] LABORATORY Eosinophils % 0.5 % [facility] LABORATORY Eosinophils Abs 0.0 0.0 - 0.[address] [facility] x10(3)/[facility] LABORATORY Basophils % 0.4 % [facility] LABORATORY Basophils Abs 0.0 0.0 - 0.[address] [facility] x10(3)/[facility] LABORATORY Immature Gran % 0.40 % [...] 0.04 x10(3)/[facility] MAR Y [facility] LABORATORY Specimen Anatomical Collection Method Collection Time Receive d Time (Source) Location / / Volume Laterality Blood specimen 07/06/2017 2:20 AM 017 2:33 (specimen) EST AM EST Resulting Agency Comment Spec In Lab Daphne Shahid MD HEMATOLOGY ORDERABLES Performing Organization Address City/State/ZIP [place] [address] (ABNORMAL) Hemogram (07/06/2017 2:20 AM EST) Analysis Performed At Patho logist Time Signature WBC 7.6 4.0 - 9.[address] [facility] x10(3)/[facility] LABORATORY RBC 4.52 (L) 4.58 - [facility] 5.54 [facility] x10(6)/[facility] LABORATORY Hemoglobin 13.4 (L) 13.7 - [facility] 16.5 gm/dL [facility] LABORATORY Hematocrit 39.7 (L) 40.5 - [facility] 48.5 % [facility] LABORATORY MCV 87.8 82.9 - [facility] 93.1 [facility] LABORATORY MCH 29.6 27.5 - [facility] 32.1 pg [facility] LABORATORY MCHC 33.8 32.0 - [facility] 35.7 gm/dL [facility] LABORATORY Platelets 189 145 - [address] [facility] x10(3)/[facility] LABORATORY RDWSD 45.6 (H) 36.0 - [facility] 45.0 [facility] LABORATORY RDWCV 14.3 (H) 11.4 - [facility] 13.8 % [facility] LABORATORY MPV 9.1 7.6 - 12.9 [facility] LABORATORY nRBC % Auto 0.0 % [facility] LABORATORY nRBC Abs Auto 0.000 0.000 - [place] DAVIS 0.000 [facility] x10(3)/[facility] LABORATORY Specimen Anatomical Collection Method Collection Time Receive d Time (Source) Location / / Volume Laterality Blood specimen 07/06/2017 2:20 AM 017 2:33 (specimen) EST AM EST Resulting Agency Comment Spec In Lab Daphne Shahid MD HEMATOLOGY ORDERABLES Performing Organization Address City/State/ZIP Code Phon e Number [address] (ABNORMAL) APTT (07/06/2017 2:20 [...] [facility]/ZIP Code Phon e Number [address] POCT Glucose (07/06/2017 2:20 AM EST) P athologist Signature POC Glucose 115 65 - [address] [facility] mg/dL [facility] LABORATORY [...] Address City/State/Z[place] [address] (ABNORMAL) Cardiac Enzymes (LEB/CGP) (07/06/2017 2:20 AM EST) P athologist Signature Troponin-T 2.13 (H) 0.00 - [place] RYAN 0.00 ng/mL [facility] LABORATORY [...] sample may be indicated. Reference: Third [place] Definition of Myocardial Infarction. Journal of the [place] College of Cardiology 2012;60:1581-98 CK, Total 129 [...] [place] [address] (ABNORMAL) Hemoglobin A1c (07/06/2017 2:20 AM EST) Analysis Performed At Patho logist Time Signature Hemoglobin A1C 6.8 (H) 4.3 - 5.[address] [facility] % [facility] LABORATORY Comment: Reference Range: [...] Mellitus, Diabetes Care 2013; 36: Suppl. 1, S67-66 Est Avg Gluc See note mg/dL WHITE [...] into estimated average glucose values. ??Diabetes Care 2008:31(8):9738-0208. Specimen Anatomical Collection Method Collection Time Receive d Time (Source) Location / / Volume Laterality Blood specimen 07/06/2017 2:20 AM 017 2:34 (specimen) EST AM EST Resulting Agency Comment Spec In Lab Daphne Shahid MD CHEMISTRY ORDERABLES Performing Organization Address City/State/Z[place] [address] (ABNORMAL) Lipid Panel (07/06/2017 2:20 AM EST) Patholo gist Method Time Signature Chol, Total 150 <=239 [place] mg/dL [facility] LABORATORY Triglycerides 129 <=199 [facility] mg/dL [facility] LABORATORY HDL 32 (L) >=40 [place] mg/dL [facility] LABORATORY LDL Cholesterol 92 <=190 [facility] mg/dL [facility] LABORATORY Chol/HDL Ratio 4.7 ratio [facility] LABORATORY Lipid See Note BARBARA Interpretation [facility] LABORATORY Comment: Lipid management should be guided by a p atient? s ASCVD risk, goals and preferences. ACC/AHA Guidelines recommend high intens ity statin if clinical ASCVD or LDL greater than or equal to 190 mg/dL. [email or web address] Adults aged 40-75 with LDL 70-189 mg/dL should have their 10 year ASCVD risk estimated with the ACC/AHA ASCVD risk es timator http://tools.acc.org/GKTJS-Vski-Hfbujpqo r/ Statin should be discussed if risk [...] Address City/State/[place] [address] POCT Glucose (07/06/2017 1:09 AM EST) P athologist Signature POC Glucose 121 65 - [address] [facility] mg/dL [facility] LABORATORY [...] Address City/State/Z[place] [address] POCT Glucose (07/06/2017 12:06 AM EST) P athologist Signature POC Glucose 147 65 - 199 [place] RYAN mg/dL [place] [...] Address City/State/Z[place] [address] (ABNORMAL) POCT Glucose (07/05/2017 [...] Address City/State/[place] [address] (ABNORMAL) POCT Glucose (07/05/2017 [...] Address City/State/[place] [address] (ABNORMAL) POCT Glucose (07/05/2017 9:02 PM EST) P athologist Signature POC Glucose 301 (H) 65 - [address] [facility] mg/dL [facility] LABORATORY [...] Address City/State/Z[place] [address] XR Chest PA or [...] 474 ms MUSE SYSTEM (Bezet) Calculated P [place] 50 degrees MUSE SYSTEM Calculated R [place] -28 degrees MUSE SYSTEM Calculated T [place] 90 degrees MUSE SYSTEM INTERPRETATION Sinus tachycardia [...] 9.08 (H) 1.70 - [facility] 6.10 [facility] x10(3)/[facility] L LABORATORY Lymphocytes % 7.0 % [facility] LABORATORY Lymphocytes Abs 0.7 (L) 0.9 - 3.[address] [facility] x10(3)/[facility] LABORATORY Monocytes % 3.7 % [facility] LABORATORY Monocyte Abs 0.4 0.3 - 0.[address] [facility] x10(3)/[facility] LABORATORY Eosinophils % 0.1 % [facility] LABORATORY Eosinophils Abs 0.0 0.0 - 0.[address] [facility] x10(3)/[facility] LABORATORY Basophils % 0.2 % [facility] LABORATORY Basophils Abs 0.0 0.0 - 0.[address] [facility] x10(3)/[facility] LABORATORY Immature Gran % 0.60 % [place] [...] [place] [address] (ABNORMAL) Hemogram (07/05/2017 8:20 PM EST) Analysis Performed At Patho logist Time Signature WBC 10.3 (H) 4.0 - 9.[address] [facility] x10(3)/[facility] LABORATORY RBC 4.64 4.58 - [facility] 5.54 [facility] x10(6)/[facility] LABORATORY Hemoglobin 14.1 13.7 - [facility] 16.5 gm/dL [facility] LABORATORY Hematocrit 40.8 40.5 - [facility] 48.5 % [facility] LABORATORY MCV 87.9 82.9 - [facility] 93.1 [facility] LABORATORY MCH 30.4 27.5 - [place] OLIVASCK 32.1 pg [facility] LABORATORY MCHC 34.6 32.0 - [place] OLIVASCK 35.7 gm/dL [facility] LABORATORY Platelets 204 145 - [address] [facility] x10(3)/[facility] LABORATORY RDWSD 46.1 (H) 36.0 - [facility] 45.0 [facility] LABORATORY RDWCV 14.5 (H) 11.4 - [facility] 13.8 % [facility] LABORATORY MPV 9.7 7.6 - 12.9 [facility] LABORATORY nRBC % Auto 0.0 % [facility] LABORATORY nRBC Abs Auto 0.000 0.000 - [place] ZHAORYAN 0.000 [facility] x10(3)/[facility] LABORATORY Specimen Anatomical Collection Method Collection Time Receive d Time (Source) Location / / Volume Laterality Blood specimen 07/05/2017 8:20 PM 017 8:27 (specimen) EST PM EST Resulting Agency Comment Spec In Lab Daphne Shahid MD HEMATOLOGY ORDERABLES Performing Organization Address City/State/Z[place] [address] APTT (07/05/2017 8:20 PM [...] Address City/State/[place] [address] (ABNORMAL) Cardiac Enzymes (LEB/CGP) (07/05/2017 8:20 PM EST) athologist Signature Troponin-T 2.11 (H) 0.00 - [place] OLIVASCK 0.00 ng/mL [facility] LABORATORY [...] sample may be indicated. Reference: Third [place] Definition of Myocardial Infarction. Journal of the [place] College of Cardiology 2012;60:1581-98 CK, Total 149 [...] [place] [address] (ABNORMAL) Magnesium (07/05/2017 8:20 PM EST) P athologist Signature Magnesium 0.68 (L) 0.69 - 1.[address] [facility] mmol/L [facility] LABORATORY Specimen Anatomical Collection Method Collection Time Receive d Time (Source) Location / / Volume Laterality Blood specimen 07/05/2017 8:20 PM 017 8:27 (specimen) EST PM EST Resulting Agency Comment Spec In Lab Daphne Shahid MD CHEMISTRY ORDERABLES Performing Organization Address City/State/Z[place] [address] (ABNORMAL) Basic Metabolic Panel (non-fasting) (07/05/2017 8:20 PM EST) P athologist Signature Glucose Lvl 321 (H) 65 - [address] [facility] mg/dL [facility] LABORATORY [...] or in patients with acute kidney failure. [email or web address] Specimen Anatomical Collection Method Collection Time Receive d Time (Source) Location / / Volume Laterality Blood specimen 07/05/2017 8:20 PM 017 8:27 (specimen) EST PM EST Resulting Agency Comment Spec In Lab Daphne Shahid MD CHEMISTRY ORDERABLES Performing Organization Address City/State/ZIP Code Phon e [place] [address] (ABNORMAL) POCT Glucose (07/05/2017 7:32 PM EST) P athologist Signature POC Glucose 296 (H) 65 - [address] [facility] mg/dL [facility] LABORATORY [...] Organization Address City/State/ZIP [place] [address] CARDIAC CATHETERIZATION (07/05/2017 6:47 PM EST) Anatomical Region Laterality Modality Other Specimen (Source) Anatomical Location Collection Method / Collectio n Time Received Time / Laterality Volume Narrative 07/05/2017 7:27 PM EST ?[facility] ? Cardiac Cathete rization/Intervention Report ? Patient Name: Natalya, Gregory ? Procedure Date: 07/05/2017 ? A #: [id number] ? Primary Physician: Clarisa, Jet T ? Case #: [id number] ? File Name: [id number] ? Catheterization Order Number: [id number] ? [facility] ? Final Report [place], [place] ? Patient Name: ? Gregory Natalya ?ID#: ?[id number] ? : ?1945 ? Procedure Date: ? [...] site angio graphy and IABP insertion in field laborer. ? Jet Mckenna M.D. ? Electronically Signed by: Jet bunch M.D. ? Report Finalized: 07/05/2017 ??19:23 ? Report Last Ammended: 10/26/2017 ??10:29 ? Procedure Note Jet Mckenna MD - 10/26/2017Formatt ing of this note might be different from the original. [facility] Cardiac Catheterization/Intervention Re port Patient Name: Gregory Hoang Procedure Date: 07/05/2017 A #: [id number] Primary Physician: Jet Mckenna Case #: [id number] File Name: [id number] Catheterization Order Number: [id number] [facility] Human Services Assistant [facility] Final Report [place], [place] Patient Name: Gregory Hoang ID#: [id number] : 1945 Procedure Date: July 05, [...] site angiograph y and IABP insertion in field laborer. Jet Mckenna M.D. Electronically Signed by: [...] Mccollum ? (Age): 1945(72y) Med Rec#: ? [id number] ?Sex: ?M ? [place] ? [facility] [place]Ht / Wt: ??173(cm)/86(kg) Pt. Loc: ?CCU ? BSA: ?2 Study Date: ?? 07/05/2017 ?Pt. Type: Inpatient Tape: ? Referring: Daphne Shahid ([id number]) Referring: MANDA ALCANTAR Reading: Blade Preston ([id number]) Oceanography Professor: Dayami Paula BA, [facility] Diagnosis: *ICD-10-PCS Non-ST elevation (NSTEMI) m [...] E-wave Vmax ?0.8 ?m/sec ? MV deceleration [id number] ?msec ? MV A-wave Vmax ?0.8 ?m/sec [...] ? Mid-Inferior ?Akinetic ? Mid-Inferoseptal ?Hypokinetic ? Bradford-Septal ? Akinetic ? Bradford-Anterior ? Hypokinetic ? Bradford-Lateral ?Hypokinetic ? Bradford-Inferior ? Akinetic ? Bradford-Tip ?Akinetic ? This report has been electronically sign ed by: _ Blade Preston MD ? 07/06/2017 08 :53:15 Images reviewed and interpretation verif ied [facility] Cardiac Ultrasound Laboratory Procedure Note Blade Preston MD - 07/06/2017Formatt ing of this note might be different from the original. Procedure: Transthoracic Echocardiogram Patient: NATALYA MCBRIDE(Age): [birth year]72y) Med Rec#: [id number] Sex: M [place] Loc: [facility] Ht / Wt: 173(cm)/86(kg) Pt. Loc: CCU BSA: 2 Study Date: 07/05/2017 Pt. Type: Inpatie nt Tape: Referring: Daphne Shahid ([id number]) Referring: MANDA ALCANTAR Reading: Blade Preston ([id number]) Oceanography Professor: Dayami Paula BA, [facility] Diagnosis: *ICD-10-PCS Non-ST elevation (NSTEMI) m [...] MV E-wave Vmax 0.8 m/sec MV deceleration [id number] msec MV A-wave Vmax 0.8 m/sec MV [...] Hypokinetic Mid-Posterolateral Hypokinetic Mid-Inferior Akinetic Mid-Inferoseptal Hypokinetic Bradford-Septal Akinetic Bradford-Anterior Hypokinetic Bradford-Lateral Hypokinetic Bradford-Inferior Akinetic Bradford-Tip Akinetic This report has been electronically sign ed by: _ Blade Preston MD 07/06/2017 08:53:15 Images reviewed and interpretation verif ied [facility] Cardiac [facility]ound [facility] Daphne Shahid MD ECHO ORDERABLES Differential, Automated (07/05/2017 4:55 PM EST) athologist Signature Neutrophils % 77.0 % [facility] LABORATORY Neutr Abs (ANC) 5.26 1.70 - [facility] 6.10 [facility] x10(3)/[facility] LABORATORY Lymphocytes % 13.3 % [facility] LABORATORY Lymphocytes Abs 0.9 0.9 - 3.[address] [facility] x10(3)/[facility] LABORATORY Monocytes % 8.2 % [facility] LABORATORY Monocyte Abs 0.6 0.3 - 0.[address] [facility] x10(3)/[facility] LABORATORY Eosinophils % 0.7 % [facility] LABORATORY Eosinophils Abs 0.0 0.0 - 0.[address] [facility] x10(3)/[facility] LABORATORY Basophils % 0.4 % [facility] LABORATORY Basophils Abs 0.0 0.0 - 0.[address] [facility] x10(3)/[facility] LABORATORY Immature Gran % 0.40 % [...] 0.04 x10(3)/[facility] MAR Y [facility] LABORATORY Specimen Anatomical Collection Method Collection Time Receive d Time (Source) Location / / Volume Laterality Blood specimen 07/05/2017 4:55 PM 017 5:24 (specimen) EST PM EST Resulting Agency Comment Spec In Lab Daphne Shahid MD HEMATOLOGY ORDERABLES Performing Organization Address City/State/ZIP [place] [address] (ABNORMAL) Hemogram (07/05/2017 4:55 PM EST) Analysis Performed At Patho logist Time Signature WBC 6.8 4.0 - 9.[address] [facility] x10(3)/[facility] LABORATORY RBC 4.67 4.58 - [facility] 5.54 [facility] x10(6)/[facility] LABORATORY Hemoglobin 14.0 13.7 - [facility] gm/dL [facility] LABORATORY Hematocrit 41.0 40.5 - [facility] 48.5 % [facility] LABORATORY MCV 87.8 82.9 - [facility] 93.1 [facility] LABORATORY MCH 30.0 27.5 - [facility] 32.1 pg [facility] LABORATORY MCHC 34.1 32.0 - [facility] 35.[facility] gm/dL [facility] [facility] Platelets 197 145 - [address] [facility] x10(3)/[facility] LABORATORY RDWSD 46.4 (H) 36.0 - [facility]0 [facility] LABORATORY RDWCV 14.5 (H) 11.4 - [facility] RYAN 13.8 % [facility] LABORATORY MPV 9.7 7.6 - 12.9 [facility] LABORATORY nRBC % Auto 0.0 % [facility] LABORATORY nRBC Abs Auto 0.000 0.000 - [facility] DAVIS 0.000 [facility] x10(3)/[facility] LABORATORY Specimen Anatomical Collection Method Collection Time Receive d Time (Source) Location / / Volume Laterality Blood specimen 07/05/2017 4:55 PM 017 5:24 (specimen) EST PM EST Resulting Agency Comment Spec In Lab Daphne Shahid MD HEMATOLOGY ORDERABLES Performing Organization Address City/State/[place] [address] (ABNORMAL) Cardiac Enzymes (LEB/CGP) [...] sample may be indicated. Reference: Third [place] Definition of Myocardial Infarction. Journal of the [place] [employer] 2012;60:1581-98 CK, Total 191 [...] [facility]/[place] [address] (ABNORMAL) pro-Brain Natriuretic Peptide (07/05/2017 4:55 PM EST) athologist Signature ProBNP 1,598 (H) <=125 [facility] pg/mL [facility] LABORATORY Specimen Anatomical Collection Method Collection Time Receive d Time (Source) Location / / Volume Laterality Blood specimen 07/05/2017 4:55 PM 017 5:24 (specimen) EST PM EST Resulting Agency Comment Spec In Lab Daphne Shahid MD CHEMISTRY ORDERABLES Performing Organization Address City/[facility]/ZIP Code Phon e Number [address] Magnesium (07/05/2017 4:55 PM EST) athologist Signature Magnesium 0.78 0.69 - 1.[address] [facility] mmol/L [facility] LABORATORY Specimen Anatomical Collection Method Collection Time Receive d Time (Source) Location / / Volume Laterality Blood specimen 07/05/2017 4:55 PM 017 5:24 (specimen) EST PM EST Resulting Agency Comment Spec In Lab Daphne Shahid MD CHEMISTRY ORDERABLES Performing Organization Address City/[facility]/ZIP [place] [address] (ABNORMAL) Basic Metabolic Panel (non-fasting) (07/05/2017 4:55 PM EST) athologist Signature Glucose Lvl 230 (H) 65 - [address] [facility] mg/dL [facility] LABORATORY [...] or in patients with acute kidney failure. [email or web address] [email or web address] Specimen Anatomical Collection Method Collection Time Receive d Time (Source) Location / / Volume Laterality Blood specimen 07/05/2017 4:55 PM 017 5:24 (specimen) EST PM EST Resulting Agency Comment Spec In Lab Daphne Shahid MD CHEMISTRY ORDERABLES Performing Organization Address City/[facility]/[place]IP [place] [address] (ABNORMAL) APTT (07/05/2017 4:55 [...] Address City/State/[place] [address] (ABNORMAL) POCT Glucose (07/05/2017 4:53 PM EST) P athologist Signature POC Glucose 208 (H) 65 - 199 [facility] mg/dL [facility] LABORATORY Comment: [...] Address City/State/ZIP Code Phon e Number [address] EKG 12 Lead (07/05/2017 4:32 PM EST) Component Value Ref Range Test Analysis Performed Pathologis t Method Time At Signature Ventricular rate 97 BPM MUSE SYSTEM Atrial Rate 97 BPM MUSE SYSTEM P-R Interval 148 ms MUSE SYSTEM QRS Duration 96 ms MUSE SYSTEM Q-T Interval 364 ms MUSE SYSTEM QTC Calculated 462 ms MUSE SYSTEM (Bezet) Calculated P [place] 48 degrees MUSE SYSTEM Calculated R [place] -33 degrees MUSE SYSTEM Calculated T [place] 98 degrees MUSE SYSTEM INTERPRETATION Normal sinus [...] 17 g 0821 (Given - Provider: More Ltuher RN) 0900 (Not Given - Provider: Em [...]
Routine documented in this encounter Care Teams Dramatic Director Relationship Specialty Start Date End Date Lovely Vicente MD PCP - General 04/16/[address] [place] [address] [address] [place] [address] documented as of this encounter
--- OUTSIDE RECORDS SUMMARY | 2022-05-01 09:02 | XMS_ITS | Encounter Summary ---
:1945 Author Organization [facility] [place] [address] Care Team Providers Name Role Phone Lovely Vicente MD Primary Care Provider Encounter Details Date Type Department Care Team Description 07/05/2017 Telephone Cardiology Kim Galindo MD [facility] [place] [address] CARDIOLOGY DEPT [phone] [place], [place] [address] (Wo rk) Social History Tobacco [...] 1:54pm Referring Provider: Ivania CROWELL) Patient Location: [facility] Presenting Symptoms per OSH: [...] elevated troponin, transport patient to [facility] for cath this afternoon and arrhythmia monitoring. Kim Galindo MD Gang Saw Operator documented in this encounter Plan of Treatment Upcoming Encounters Date Type Specialty Care Team Description 05/28/2022 Appointment Cardiology Zulma Dolan MD [facility] [address] [place], [place] [address] (Wo rk) 05/28/2022 Laboratory Appointment Lab 05/28/2022 Office Visit Cardiology Zulma Dolan MD [facility] [place] [address] Liz Poole PA [facility] [place] [address] 06/10/2022 Office Visit Dermatology Laura Scherer MD [facility] [address] [place], [place] [address] (Wo rk) documented as of this encounter Visit Diagnoses Not on filedocumented in this encounter Care Teams Product Management Analyst Relationship Specialty Start Date End Date Lovely Vicente MD PCP - General 04/16/[address] [place] [address] documented as of this encounter
--- OUTSIDE RECORDS SUMMARY | 2022-05-01 09:02 | XMS_ITS | Encounter Summary ---
:1945 Author Organization [facility] [place] [address] Care Team Providers Name Role Phone Lovely Vicente MD Primary Care Provider Reason for Visit Reason Comments Follow-up Encounter Details Date Type Department Care Team Description 06/03/2017 Office Visit Dermatology at [facility] benign nevi; Abdelrahman HOOPER MD History of melanoma; [address] [facility] History of dysplastic nevus; [place] [address] Skin exam for malignant neoplasm [phone] [facility] [place], [place] [address] Social History Tobacco Use [...] Cardiology Zulma Dolan MD [facility] [place], [place] [address] (Wo rk) 05/28/2022 Laboratory Appointment Lab 05/28/2022 Office Visit Cardiology Zulma Dolan MD [facility] [place] [address] Liz Poole PA [facility] [place] [address] 06/10/2022 Office Visit Dermatology Laura Scherer MD [facility] [address] [place], [place] [address] (Wo rk) documented as of [...] skin documented in this encounter Care Teams Residential Service Technician Relationship Specialty Start Date End Date Lovely Vicente MD PCP - General 04/16/15 [facility] [address] [place] [address] documented as of this encounter
--- OUTSIDE RECORDS SUMMARY | 2022-05-01 09:02 | XMS_ITS | Encounter Summary ---
:1945 [place] [address] Care Team Providers Name Role Phone Lovely Vicente MD Primary Care Provider Reason for Visit Auth/Cert Specialty Diagnoses / Procedures Referred By Contact Refer red To Contact Diagnoses STEMI (ST elevation myocardial infarction) NSTEMI STEMI Procedures CARDIAC CATHETERIZATION NAYE IPI Referral ID Status Reason Start Date Expiration Date Visits Requ ested Visits Authorized [id number] 1 1 Encounter Details Date Type Department Care Team Description 07/05/2017 Surgery Forensic Science Examiner Jet Guan, CARDIAC CATHETERIZATION [facility] [place] [address] CARDIOLOGY DEPT. [phone] [place], [place] [address] (Wo rk) Social History Tobacco [...] this encounter Discharge Summaries Martha Teague S, NEUROLOGY TECHNICIAN - 07/14/2017 9:38 AM EST Inpatient - Discharge Summary Patient Name: Gregory Hoang Patient Age: 72 y.o. Birthdate: 1945 Language: Andorran Race: White Ethnicity: Not nor Admit Date: [...] , @ 1:20p Patient to follow-up with Night Auditor/heart failure team in one week. An appointment will be made for you. You may call [phone] Patient to follow-up with Cardiac Surgery, Dr. Yuan Webber, in ~ 4 weeks with CXR, EKG. Inpatient Provider Contact Information: [facility] Section of Cardiac Surgery [facility] [address] FAX [phone] Discharge Diagnoses (Hospital Problems) Primary Diagnoses: CAD [...] SETUP performed by Manny Mcknight MD at [facility] OR ??? PRO CABG, ARTERIAL, SINGLE N/A 07/07/2017 @CABG, USING ARTERIAL GRAFT;SINGLE ARTERIAL GRAFT (WRVU 33.75) performed by Yuan Webber MD at [facility] OR ??? PRO CABG, ARTERY-VEIN, TWO N/A 07/07/2017 @CABG, TWO VENOUS GRAFTS & ARTERIAL GRAFT (WRVU 7.93) performed by Yuan Webber MD at [facility] OR ??? PRO COLONOSCOPY, REMV LESN, SNARE 01/16/2014 COLONOSCOPY, POLYPECTOMY, REMOVAL LESION BY SNARE performed by Nohemi Jaimes MD at [facility] ENDOSCOPY ??? PRO ENDOSCOPY W/VIDEO-ASST VEIN HARVEST, CABG Right 07/07/2017 ENDOSCOPIC HARVEST VEIN(S) FOR CABG (WRVU 0.31) performed by Yuan Webber MD at [facility] OR ??? PRO THYROIDECTOMY 03/28/2013 THYROIDECTOMY, TOTAL OR COMPLETE performed by Manny Mcknight MD at [facility] OR Prior To Admission Medications Prescriptions Prior to Admission Medication Sig Dispense Refill Last Dose ??? levothyroxine (SYNTHROID) 175 mcg Tablet Take 1 tablet by mouth daily. 90 tablet 3 07/05/2017 [id number] ??? ascorbic acid, vitamin C, (VITAMIN C) [...] course, he was taken emergently to the oil laboratory analyst for an ongoing STEMI. An IABP [...] not take or discontinue any prescription or wtpq-jfb-nbfcaue medications without asking your doctor or pharmacist [...] Yuan Webber and/or the Cardiac Surgery Physician Assembler Carbon Brushes Team may be reached at . Weight: [...] Yuan Webber. You may use a [place] Track or treadmill but avoid any pulling [...] friends, go to a movie, go to denominational, etc. Heavy activities: No hunting, skiing, jogging, snow shoveling, snowmobiling, lawn mowing, swimming, golf or tennis until after your return appointment with the surgeon. Do not ride motorcycles, REMOTV tractors or horses. Avoid the use of [...] , @ 1:20p Patient to follow-up with Night Auditor/heart failure team in one week. Appointment will be made for you. You may call [phone] Patient to follow-up with Cardiac Surgery, Dr. Yuan Webber, in ~ 4 weeks with CXR, EKG. Cardiac Rehabilitation: Gregory Hoang was seen today regarding participation in the outpatient Phase 2 Cardiac Rehabilitation at [facility]. The patient agrees to a referral to this program. The referral will be sent at discharge and the patient should be contacted by the Program within 1- 2 weeks from discharge. ?? Future Appointments and Orders Future Appointments Provider Department Dept Phone 09/07/2017 3:00 PM LAB, THREE L Lab 3L [facility] [phone] 09/07/2017 4:00 PM Luz Prescott MD Endocrinology at [place] [phone] Future Orders Complete By Expires EKG 12 Lead [EKG1 Custom] 08/14/2017 02/13/2018 Process Instructions: Scheduling Instructions: Questions: Which DH location will this be performed?: [place] Is a rhythm strip needed?: No If EKG Reason is Pre-op Evaluation, indicate diagnosis for surgery.: XR Chest PA & Lateral (Generic) [[id number] Custom] 08/14/2017 02/13/2018 Process Instructions: Scheduling Instructions: Questions: Where will study be performed?: [place] [facility] Portable exam?: Reason for exam and clinical history: CABG x 3 Other pertinent information: Stat read required?: Date of injury if applicable: Requested Time: Referral to Cardiac Rehab [LBT359 Custom] As directed Process Instructions: If no progress note charted, please enter Clinical details in comments. Scheduling Instructions: Questions: My question or request is: s/p CABG. Cardiac rehab at [facility] Referral to Home Health - at DISCHARGE [[id number] CPT(R)] As directed Process Instructions: Scheduling Instructions: Comments: DOCUMENTATION FOR VNA SERVICES (INCLUDING THOSE PATIENTS WITH MEDICARE COVERAGE REQUIRING HOME VNA SERVICES AND/OR HOSPICE SERVICES) PATIENT'S LOCATION: Gregory Hoang [address] [place] [address] [place] [address] (home) Telephone Information: City Tax Auditor's Name: self In discussion with the attending physician, it is certified that this patient is under their care and that they, or a Nurse Practitioner, or Physician Assembler Carbon Brushes who is working directly with them, had [...] [facility] ([facility] [place] [facility] in [place] PHONE: [phone] FAX: [phone] RN orders: Cardiopulmonary assessment, incisional assessment, assess vital signs, assessment of rehab progress, medication management and effectiveness, home safety evaluation. Please draw INR if indicated and send result to:Dr Vicente [phone] PT ORDERS: Continue rehab for endurance, gait stability and strength with mobility and transfers. Home safety evaluation. Home exercise program if appropriate. Start of Care Date:24-48 hours after discharge SPECIAL INSTRUCTIONS: For any follow up questions, needs, or issues please call the Cardiac Surgery Office at [phone] FOR MEDICARE ONLY: (please delete this section [...] OR AFTER 07/17/2017 Signed: Martha Teague APRN [facility] Section of Cardiac Surgery [facility] [address] FAX [phone] Date: 07/14/2017 CC: MD Ivania Cr Betsy, PA [address] [place] [phone] documented in this encounter Discharge Instructions Discharge [...] not take or discontinue any prescription or wpes-ljh-qdphevw medications without asking your doctor or pharmacist [...] Yuan Webber and/or the Cardiac Surgery Physician Assembler Carbon Brushes Team may be reached at . ?? [...] Yuan Webber. You may use a [place] Track or treadmill but avoid any pulling [...] friends, go to a movie, go to denominational, etc. ?? Heavy activities: No hunting, skiing, jogging, snow shoveling, snowmobiling, lawn mowing, swimming, golf or tennis until after your return appointment with the surgeon. Do not ride motorcycles, Bugcrowd's tractors or horses. Avoid the use of [...] @ 1:20p ?? Patient to follow-up with Night Auditor/heart failure team in one week. An appointment has been made for you, you can call [phone] ?? Patient to follow-up with Cardiac Surgery, Dr. Yuan Webber, in ~ 4 weeks with CXR, EKG. ? Cardiac Rehabilitation: Gregory Hoang??was seen today regarding participation in the outpatient Phase 2 Cardiac Rehabilitation at [facility]. ?? The patient agrees to a referral to this program.? The referral will be sent at discharge and the patient should be contacted by the Program within 1- 2 weeks from discharge. ? Future Appointments and Orders Future Appointments Provider Department Dept Phone ?? 09/07/2017 3:00 PM LAB, THREE L Lab 3L [facility] [phone] ?? 09/07/2017 4:00 PM Luz Prescott MD Endocrinology at [place] [phone] Future Orders Complete By Expires ?? EKG 12 Lead [EKG1 Custom] 08/14/2017 02/13/2018 ?? Process Instructions: ? Scheduling Instructions: ? Questions: ? Which location will this be performed?: [place] ?? Is a rhythm strip needed?: No ?? If EKG Reason is Pre-op Evaluation, indicate diagnosis for surgery.: ?? XR Chest PA & Lateral (Generic) [[id number] Custom] 08/14/2017 02/13/2018 ?? Process Instructions: ? Scheduling Instructions: ? Questions: ? Where will study be performed?: [place] [facility] ?? Portable exam?: ?? Reason for exam and clinical history: CABG x 3 ?? Other pertinent information: ?? Stat read required?: ?? Date of injury if applicable: ?? Requested Time: ?? Referral to Cardiac Rehab [XOX128 Custom] As directed ? Process Instructions: ?? If no progress note charted, please enter Clinical details in comments. ?? Scheduling Instructions: ? Questions: ? My question or request is: s/p CABG. Cardiac rehab at [facility] ? Arrangements for VNA/home care: [...] RN - 07/14/2017 2:34 PM EST The patient/consumer sales representative has been provided a list of Home Health Agencies/DME vendors which serve their preferred geographic area. A letter describing our affiliations was reviewed with them and theywere educated about their right to choose where referrals are placed. Patient requests referral to [facility]. PHONE: [phone] FAX: [phone] Expected date of discharge: 07/14 Referral routed to the [employer] [facility] for matching with agency/vendor and to provide [...] [facility] Endocr[facility]ology Diabetes Management Pager [phone] minutes of this 35 minute visit was spent with the patient in counseling on diabetes and treatment plan, reviewing all glucose and insulin data as well as relevant laboratory results with the patient, and coordination of care on the inpatient unit including nursing and primary team. Zulma Andres RN - 07/14/2017 10:30 AM EST The patient/consumer sales representative has been provided a list of Home Health Agencies/DME vendors which serve their preferred geographic area. A letter describing our affiliations was reviewed with them and theywere educated about their right to choose where referrals are placed. Patient requests referral to : Yasmani Munguia ([facility] [place] [facility] in [place] PHONE: [phone] FAX: [phone]. Expected date of discharge: 07/14/17 Referral routed to the [employer] Steward for matching with agency/vendor and to provide [...] hours. If BG remains greater than 240, nddpja05 units (no more than three times) &??call [...] #6 s/p CABG X3. FSBG [place], reports no symptoms but did drink some [...] [facility] Endocrinology Diabetes Management Pager [phone] 15 minutes of this 25 minute visit [...] of infiltration/extravasation Discussed plan of care with FIXED WING AIRCRAFT CREW CHIEF and RN. Elevate exrtemity and apply intermittent Warm compresses. Name of MD contacted Dr. Shaw Brown 07/13/2017 @ 0655 Name of RN contacted Ale Rangel RN Name of Pharmacist if consulted NA Name of Plastics MD ( if consulted) NA (Mandatory photo for infiltrations/ extravasations scoring a stage 2 or greater, but recommended forstage 1)( include measuring tape and identifier in the photo) FOUNTAIN ATTENDANT CARING FOR THIS PATIENT WILL CONTINUE TO [...] measuring tape and identifier in the photo) FOUNTAIN ATTENDANT CARING FOR THIS PATIENT WILL CONTINUE TO [...] to both infiltrates addressed by this technical document writer.All of Mr. Hoang's responses were entirely appropriate. Images of infiltrates attached here. Martha Sharp APRN - 07/13/2017 8:01 AM EST Cardiac Surgery Progress Note: ID: [id number] 72 year old male POD#6 s/p CABGx3 [...] discharge. ?? I have met with the patient/consumer sales representative to discuss discharge planning needs. I have provided the [facility], Office of Care Management letter from the Insole Reinforcer pertaining to rehab referrals. I have also provided a letter describing our affiliations within the [facility] and educated them about their right to choose where referrals are placed. ?? I reviewed the different levels of rehab including SNF, swing, acute and LTAC with the patient/consumer sales representative. ?? The patient/consumer sales representative has been provided a list of facilities within their preferred geographic area. ?? I have requested that the patient/consumer sales representative provide at least three choices for referral. ?? The patient/consumer sales representative have requested referrals to: ?? 1. . ?? 2. [facility] ?? 3. More to be entered ?? Expected date of discharge: 07/14 Note routed to [facility] who will communicate referrals to facilities and [...] hours. If BG remains greater than 240, yorzhs33 units (no more than three times) & [...] [facility] Endocr[facility] Diabetes Management Pager [phone] 20 minutes of this 35 minute visit was spent with the patient in counseling on diabetes and treatment plan, reviewing all glucose and insulin data as well as relevant laboratory results with the patient, and coordination of care on the inpatient unit including nursing and primary team. Makayla Stevenson APRN - 07/12/2017 9:52 AM EST Cardiac Surgery Progress Note: ID: [id number] 72 year old male POD#5 s/p CABGx3 [...] hours. If BG remains greater than 240, ygakgx23 units (no more than three times) & [...] AM EST Cardiac Surgery Progress Note: ID: [id number] 72 year old male POD#4 s/p CABGx3 [...] hours. If BG remains greater than 240, vqgodq19 units (no more than three times) & [...] AM EST Cardiac Surgery Progress Note: ID: [id number] 72 year old male POD#3 s/p CABGx3 [...] Gas) No results found for: PHART, PO2ART, QNN1WII Assessment/Plan: 72 year old male POD#3 s/p [...] Mami Thao - 07/09/2017 6:29 PM EST Graphic Arts Instructor Encounter Note Patient Name: Gregory Hoang : [id number] MR#: [id number] Admit Date: 07/05/2017 4:20 PM Hospital Day 4 days Narrative: Patient was sitting in chair, hugging heart pillow, opened his eyes, nodding to come into room Assessment: Patient was sleepy. Intervention and Outcome: Introduced shoulder joiner services and patient reached his hand out in appreciation. Follow-up: Graphic Arts Instructor remains available for support. Time in [...] 10:45 AM EST Report given to staff radiographer to cover care Maddison Cee PA - 07/09/2017 9:00 AM EST Cardiac Surgery Progress Note: ID: [id number] 72 year old male POD#2 s/p CABGx3 [...] when IABP d/c'ed. Gretchen Carolina, PT Pager [phone] Maddison Cee PA - 07/08/2017 11:27 AM EST Cardiac Surgery Progress Note: ID: [id number] 72 year old male POD#1 s/p CABGx3 [...] in place in R femoral. No hematoma. STOCK FEEDER- Intact Psych- Anxious Skin- Dry, no [...] intact. IABP in place in R femoral. STOCK FEEDER- Intact Psych- Anxious Skin- Dry, no [...] note for details. DAPHNE SHAHID MD Pager [phone] ClarisaJet lynn MD - 07/05/2017 6:48 PM EST Preliminary Cardiac Catheterization Procedure Note: Procedure(s) performed: Left heart cath, IABP insertion Access: Right WHARF LABORER-->8fr IABP A time-out was conducted prior to [...] effect. Heparin gtt maintained. Pt transferred to oil laboratory analyst. documented in this encounter H&P Notes Daphne Shahid MD - 07/05/2017 6:08 PM EST CARDIOLOGY HISTORY & PHYSICAL EXAM Date of Admission: 07/05/2017 ( Hospital Day 0 days ) Responsible Attending: Daphne Shahid MD PCP: Lovely Vicente MD PCP#: [phone] Patient Active Problem List Diagnosis Code ??? [...] No significant valvular disease. Taken to the oil laboratory analyst urgently for ongoing STEMI. [facility] Labs: INR 1.0 WBC 5.88 [...] monitor I/O - s/p lasix in the oil laboratory analyst, redose to aim net neg 1L [...] Medicine, PGY-2 Cardiology S1, Team Pager # [phone] CARDIOLOGY ATTENDING NOTE Patient: Gregory Hoang Date [...] amenable for PCI. DAPHNE SHAHID MD Pager [phone] documented in this encounter Miscellaneous Notes Consult Note - Daphne Shahid MD - 07/14/2017 11:46 AM EST Heart Failure Service Inpatient Consult Note Gregory Hoang Date of : 1945 Age: 72 y.o. Today's date: 07/14/17 PCP: Lovely Vicente MD ED TECH: None Place of Service: [facility] Reason for Consult: Dr. Webber has requested [...] SETUP performed by Manny Mcknight MD at [facility] OR ??? PRO CABG, ARTERIAL, SINGLE N/A 07/07/2017 @CABG, USING ARTERIAL GRAFT;SINGLE ARTERIAL GRAFT (WRVU 33.75) performed by Yuan Webber MD at [facility] OR ??? PRO CABG, ARTERY-VEIN, TWO N/A 07/07/2017 @CABG, TWO VENOUS GRAFTS & ARTERIAL GRAFT (WRVU 7.93) performed by Yuan Webber MD at [facility] OR ??? PRO COLONOSCOPY, REMV LESN, SNARE 01/16/2014 COLONOSCOPY, POLYPECTOMY, REMOVAL LESION BY SNARE performed by Nohemi Jaimes MD at [facility] ENDOSCOPY ??? PRO ENDOSCOPY W/VIDEO-ASST VEIN HARVEST, CABG Right 07/07/2017 ENDOSCOPIC HARVEST VEIN(S) FOR CABG (WRVU 0.31) performed by Yuan Webber MD at [facility] OR ??? PRO THYROIDECTOMY 03/28/2013 THYROIDECTOMY, TOTAL OR COMPLETE performed by Manny Mcknight MD at [facility] OR Outpt Meds: Current [...] following studies: EKG 07/14/17: NSR 75 bpm, CONSUMER LOAN SPECIALIST anterior infarct, LAD CXR 07/11/17: FINDINGS: Sternotomy wires. The patient has been extubated, left chest tube removed, and [place]-Suzi catheter removed since the 07/07/2017 study. Atelectasis [...] was discussed with Kono. Jaden Kelley MD Validation Technician Pager [phone] CARDIOLOGY ATTENDING NOTE Patient: Gregory Hoang Date [...] heart failure clinic. DAPHNE SHAHID MD Pager [phone] Plan of Care - Alden Chavarria PTA [...] home with assist Alden Chavarria PTA Pager: [phone] Inpatient Physical Therapy Problem: Acute Rehab Services [...] sit/sit to supine -- Bed Mobility Goal, Gaston Level supervision required -- Bed Mobility Goal, [...] - 3 days -- Gait Training Goal, Gaston Level supervision required -- Gait Training Goal, [...] days -- Transfer Training Goal, Activity Type jyk-hn-qahvx/magwc-ct-uri;swe-cc-htqjy/bgskh-wp-rxn;toilet -- Transfer Train Goal, Gaston Level supervision required -- Transfer Training Goal, [...] keeping present for 2 days per family. Traffic Signal Repairer noted of frustrations, house keeping sent to room. Patient offered showered twice, refused. at bedside, frustrated that shower not complete, informed that patient had refused several times. requesting to see BICYCLE II ASSEMBLER, paged sent to Martha, will come to bedside (middle of consult). not willing to wait, Martha notified that family had gone home. Encouraged to come for morning rounds a t 8am. Diabetes team at bedside - insulin adjustments made. Call cabello in reach. Continue to monitor. PLAN MOVING FORWARD: Ambulate, dressing changes BID, Please change drsg at 4am per Martha BICYCLE II ASSEMBLER request. INDIVIDUALIZED FALL PREVENTION INTERVENTIONS: Patient-specific [...] levels on the lower side, 60ml of [place] juice given after a FS of 80. [...] Conf 07/13/17 0502 Interdisciplinary Rounds/Family Conf Participants nutrition manager;dietitian/nutrition services;nursing;occupational therapy;patient;pharmacy;physical therapy;physician Plan of Care [...] monitoring required during toileting and ADLs]: RN FIXED WING AIRCRAFT CREW CHIEF Surveillance [continuous indirect monitoring]: Barrett Monitor CPG [...] determine his needs for home. Expect he rmei prgres well andbe able to go home [...] Anticipated Discharge Disposition: home with assist Pager: [phone] CLARISSA SEGAL, PT 07/12/2017 Physical Therapy Rehabilitation [...] to sit/sit to supine Bed Mobility Goal, Gaston Level supervision required Bed Mobility Goal, Additional Goal adheres to psternal precautions for transfer Goal: Gait Training Goal Stand Alone Therapy Goal Outcome: Ongoing (Interventions Implemented as Appropriate) 07/12/17 1225 Gait Training Goal Gait Training Goal, Date Established 07/12/17 Gait Training Goal, Time to Achieve 2 - 3 days Gait Training Goal, Gaston Level supervision required Gait Training Goal, Assist [...] 3 days Transfer Training Goal, Activity Type vuj-zf-byakg/eqiel-fc-glp;res-ut-eojdn/xbqew-va-gay;toilet Transfer Train Goal, Gaston Level supervision required Transfer Training Goal, Additional Goal adheres to sternal precautions during transfer Consult Note - Octavia Vaughn RN - 07/12/2017 10:50 AM EST [facility] CARDIAC REHABILITATION Gregory Hoang was seen today regarding participation in the outpatient Phase 2 Cardiac Rehabilitation at [facility]. The patient agrees to a [...] IV site, amio to other piv and MEDICARE COORDINATOR at bedside to help assess, IV [...] Health/Prescription Coverage: Primary Insurance: MEDICARE Secondary Insurance: [employer] [place] Prescription Coverage: yes Preferred Pharmacy: [facility] [place] Other: none Primary Care Provider: Lovely Vicente MD [phone] Patient/Caregiver Goals of Treatment:live and get my breath back Potential Needs for Transition of Care: Rehab[facility]SNF: [facility] Home Health: NA DME: TBD Dialysis: na Community Resources: available Transportation: yes Other: none Anticipated Barriers to Discharge/Special Considerations: none Plan: Likely SNF Rehab before home A member of the Care Management team will continue to monitor progress, follow for continuity of care and assist with transition of care planning. ERLIN Weiss Pager: [phone] Consult Note - Katerin Azul RN - [...] management and to provide a review of [facility] diabetes care. Diabetes History: Gregory Hoang has [...] care for your patient W/E coverage, Dr. Jaene Tatum, pager [phone] Katerin Azul APRN Endocrinology Diabetes Management Pager [phone] Plan of Care - Stephanie Godoy RN [...] Operative Note Patient Name: Gregory Hoang : [id number] MR#: [id number] Case Date: 07/07/2017 Surgeon: Surgeon(s) and Role: * Yuan Webber MD - Primary * Michael Drake PA - Physician Assembler Carbon Brushes * Linda Flores PA - Physician Assembler Carbon Brushes Preoperative diagnosis: 3VD Postoperative diagnosis: CAD, severe [...] Operative Note Patient Name: Gregory Hoang : [id number] MR#: [id number] Case Date: 07/07/2017 Surgeon: Surgeon(s) and Role: * Yuan Webber MD - Primary * Michael Drake PA - Physician Assembler Carbon Brushes * Linda Flores PA - Physician Assembler Carbon Brushes Preoperative diagnosis: 3VD Postoperative diagnosis: CAD, severe LV dysfunction, severely dilated LV, post Bypass EF 30% Procedure(s) (LRB): @CABG, USING ARTERIAL GRAFT;SINGLE ARTERIAL GRAFT (WRVU 33.75) (N/A) @CABG, TWO VENOUS GRAFTS & ARTERIAL GRAFT (WRVU 7.93) (N/A) ENDOSCOPIC HARVEST VEIN(S) FOR CABG (WRVU 0.31) (Right) CABG x 3 THOMSPON->LAD, Seq SVG->OM1->D1 Anesthesia: General/Perez Findings: , diffusely [...] Hahn, MS3 [employer] [facility] Cardiology S1 (Pager [phone]) Plan of Care - Emelia Ibarra RN [...] a pacemaker,and the possibility of . Mr. Honag seems to understand and wishes to proceed. We will plan for surgery on 07/07/2017. Consent was signed. In aggregate 60 minutes were spent evaluating this patient, reviewing all images, counseling/examining the patient and communicating with other involved physicians Yuan Webber MD [phone] Med Student Progress Note - Katty Hahn [...] or BiPAP - s/p lasix in the oil laboratory analyst, was net -1.5L - s/p plavix [...] insulin drip - hold metformin - f/u [facility] ?? #Home Meds - continue levothyroxine 175mcg - CPAP at night ?? # Routine - DVT PPx: heparin drip - Diet: Healthy heart diet, NPO at midnight for CABG tomorrow - Code Status: FULL - Dispo: CVCC Katty Hahn, M3 [facility] Cardiology S1 (Pager [phone]) Plan of Care - Stephanie Godoy RN - 07/06/2017 5:00 AM EST Problem: Patient Care Overview Goal: Plan of Care Review 07/06/17 8004 Coping/Psychosocial Plan Of Care Reviewed With patient;family [...] in urinal without difficulty. Lasix given in oil laboratory analyst, 1.4 L out at this time. [...] Zulma Dolan MD [facility] [place] [address] (Wo rk) 05/28/2022 Laboratory Appointment Lab 05/28/2022 Office Visit Cardiology Zulma Dolan MD [facility] [place] [address] Liz Poole PA [facility] [place] [address] 06/10/2022 Office Visit Dermatology Laura Scherer MD [facility] DR TEJA [facility] [place], [place] [address] (Wo rk) Scheduled Orders [...] procedure are i n the results section. 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 (07/15/2017 12:00 AM EST) Narrative 07/15/2017 [...] Glucose 186 65 - 199 [facility] mg/dL [facility]OR[facility]ORY Comment: [...] City/State/[place] [address] POCT Glucose (07/14/2017 7:52 AM EST) athologist Signature POC Glucose 126 65 - 199 [facility] mg/dL [facility] Comment: [...] Address City/[facility]/[place] [address] (ABNORMAL) Prothrombin Time (07/14/2017 [...] APRN HEMATOLOGY ORDERABLES Performing Organization Address City/[facility] Code [facility] [place] [address] Potassium (07/14/2017 4:46 AM EST) athologist Signature Potassium 4.3 3.5 - 5.0 [facility] mmol/L [facility] Comment: Please note: ??Patients [...] Address City/State/ZIP Code Phon e Number [address] POCT Glucose (07/14/2017 4:34 AM EST) athologist Signature POC Glucose 115 65 - 199 [place] mg/dL [facility] Comment: [...] Address City/[facility]/ZIP Code Phon e Number [address] POCT Glucose (07/13/2017 11:33 PM EST) athologist Signature POC Glucose 132 65 - 199 [place] mg/dL [facility] Comment: [...] City/[facility]/ZIP Code [place] [address] POCT Glucose (07/13/2017 9:25 PM EST) athologist Signature POC Glucose 121 65 - 199 [place] mg/dL [facility] Comment: [...] Address City/State/ZIP Code Phon e Number [address] POCT Glucose (07/13/2017 4:55 PM EST) athologist Signature POC Glucose 79 65 - 199 [facility] mg/dL [facility] Comment: [...] Address City/State/ZIP Code Phon e Number [address] POCT Glucose (07/13/2017 11:16 AM EST) athologist Signature POC Glucose 163 65 - 199 [facility] mg/dL [facility] Comment: [...] Address City/State/ZIP Code Phon e Number [address] POCT Glucose (07/13/2017 8:07 AM EST) athologist Signature POC Glucose 96 65 - 199 [place] mg/dL [facility] Comment: [...] Address City/State/ZIP Code Phon e Number [address] (ABNORMAL) Prothrombin Time (07/13/2017 [...] Organization Address City/State/[place] [address] (ABNORMAL) Basic Metabolic Panel (non-fasting) (07/13/2017 4:26 AM EST) athologist Signature Glucose Lvl 95 65 - 199 [facility] mg/dL [facility] Comment: [...] [facility]ORY Estimated GFR 60 >=60 [facility] Comment: The reported eGFR should be multiplied b y 1.2 for patients. The MDRD is not an appropriate measure o f renal function for patients with body mass extremes or in patients with acute kidney failure. http://Architectural Daily/DHnkdep http://Architectural Daily/DHMCnkf Specimen Anatomical Collection Method Collection Time Receive d Time (Source) Location / / Volume Laterality Blood specimen 07/13/2017 4:26 AM 017 4:46 (specimen) EST AM EST Resulting Agency Comment Spec In Lab Makayla Wilson APRN CHEMISTRY ORDERABLES Performing Organization Address City/State/ZIP Code Phon e Number [address] POCT Glucose (07/13/2017 3:52 AM EST) athologist Signature POC Glucose 93 65 - 199 [facility] mg/dL [facility] Comment: [...] Address City/State/ZIP Code Phon e Number [address] POCT Glucose (07/13/2017 12:21 AM EST) athologist Signature POC Glucose 80 65 - 199 [facility] Comment: [...] Address City/State/ZIP Code Phon e Number [address] POCT Glucose (07/12/2017 8:22 PM EST) athologist Signature POC Glucose 119 65 - 199 [place] mg/dL [facility] Comment: [...] Address City/[facility]/ZIP Code Phon e Number [address] POCT Glucose (07/12/2017 4:02 PM EST) athologist Signature POC Glucose 114 65 - 199 [place] mg/dL [facility] Comment: [...] Address City/State/ZIP Code Phon e Number [address] POCT Glucose (07/12/2017 11:28 AM EST) P athologist Signature POC Glucose 164 65 - 199 [place] mg/dL [facility] Comment: [...] Address City/State/ZIP Code Phon e Number [address] POCT Glucose (07/12/2017 7:34 AM EST) athologist Signature POC Glucose 109 65 - 199 [facility] mg/dL [facility] Comment: [...] Organization Address City/State/[place] [address] (ABNORMAL) Basic Metabolic Panel (non-fasting) (07/12/2017 4:11 AM EST) athologist Signature Glucose Lvl 92 65 - 199 [facility] Comment: [...] or in patients with acute kidney failure. http://Architectural Daily/DHnkdep http://Architectural Daily/DHMCnkf Specimen Anatomical Collection Method Collection Time Receive d Time (Source) Location / / Volume Laterality Blood specimen 07/12/2017 4:11 AM 017 8:57 (specimen) EST AM EST Resulting Agency Comment Spec In Lab Makayla [place] STACIE CHEMISTRY ORDERABLES Performing Organization Address [facility] [place] [address] (ABNORMAL) Prothrombin Time (07/12/2017 [...] ORDERABLES Performing Organization Address [facility] Phon e Number [address] Potassium (07/12/2017 4:11 AM EST) P athologist Signature Potassium 3.8 3.5 - 5.0 [facility] mmol/L [facility] Comment: Please note: ??Patients [...] CHEMISTRY ORDERABLES Performing Organization Address City/[facility]/ZIP [facility] Phon e Number [address] POCT Glucose (07/12/2017 4:10 AM EST) athologist Signature POC Glucose 90 65 - 199 [facility]/dL [facility] Comment: [...] Address City/[facility]/ZIP Code Phon e Number [address] POCT Glucose (07/11/2017 11:57 PM EST) athologist Signature POC Glucose 98 65 - 199 [facility]/dL [facility] Comment: [...] Address City/[facility]/ZIP Code Phon e Number [address] POCT Glucose (07/11/2017 8:32 PM EST) P athologist Signature POC Glucose 146 65 - 199 [place] mg/dL [facility] Comment: [...] City/State/[place] [address] XR Chest PA & [...] e xtubated, left chest tube removed, and [place]-Suzi catheter removed since the study. Atelectasis at [...] e xtubated, left chest tube removed, and [place]-Suzi catheter removed since the study. Atelectasis at both lung bases, greater on the left with a small effusion on that side. Stable mild cardiomegaly. No pulmonary edema. No pne umothorax. IMPRESSION Bibasilar atelectasis, greater on the le ft with a small effusion on that side. Yuna Webber MD IMG DX ORDERABLES (ABNORMAL) POCT Glucose (07/11/2017 4:05 PM EST) athologist Signature POC Glucose 223 (H) 65 - 199 [place] mg/dL [facility] Comment: [...] Address City/[facility]/ZIP Code Phon e Number [address] POCT Glucose (07/11/2017 11:55 AM EST) athologist Signature POC Glucose 176 65 - 199 [place] mg/dL [facility] Comment: [...] Organization Address City/State/[place] [address] POCT Glucose (07/11/2017 7:53 AM EST) athologist Signature POC Glucose 189 65 - 199 [place] mg/dL [facility] Comment: [...] Address City/[facility]/ZIP Code Phon e Number [address] POCT Glucose (07/11/2017 4:22 AM EST) athologist Signature POC Glucose 151 65 - 199 [place] mg/dL [facility] Comment: Supplemental ranges: <140 mg/dL before meals <180 mg/dL all other times of the day Specimen Anatomical Collection Method Collection Time Receive d Time (Source) Location / / Volume Laterality Blood specimen 07/11/2017 4:22 AM 017 4:22 (specimen) EST AM EST Yuan Webber MD POINT OF CARE TEST ORDERABLE S Performing Organization Address [facility]/[place] [address] Potassium (07/11/2017 2:20 AM EST) athologist Signature Potassium 4.5 3.5 - 5.0 [facility] mmol/L [facility] Comment: Please note: ??Patients [...] Address City/[facility]/ZIP Code Phon e Number [address] POCT Glucose (07/11/2017 12:17 AM EST) athologist Signature POC Glucose 162 65 - 199 [place] mg/dL [facility] Comment: [...] Address City/State/ZIP Code Phon e Number [address] POCT Glucose (07/10/2017 8:47 PM EST) athologist Signature POC Glucose 191 65 - 199 [place] mg/dL [facility] Comment: [...] Organization Address City/State/[place] [address] POCT Glucose (07/10/2017 4:06 PM EST) athologist Signature POC Glucose 131 65 - 199 [place] mg/dL [facility] Comment: [...] Address City/State/ZIP Code Phon e Number [address] POCT Glucose (07/10/2017 3:08 PM EST) athologist Signature POC Glucose 151 65 - 199 [facility] mg/dL [facility] Comment: [...] Address City/State/ZIP Code Phon e Number [address] POCT Glucose (07/10/2017 2:25 PM EST) athologist Signature POC Glucose 146 65 - 199 [place] mg/dL [facility] Comment: [...] Organization Address City/State/[place] [address] POCT Glucose (07/10/2017 1:23 PM EST) athologist Signature POC Glucose 166 65 - 199 [place]HA[place] mg/dL [facility] Comment: [...] Organization Address City/State/[place] [address] POCT Glucose (07/10/2017 11:52 AM EST) athologist Signature POC Glucose 157 65 - 199 [facility] mg/dL [facility] Comment: [...] Address City/State/ZIP Code Phon e Number [address] POCT Glucose (07/10/2017 11:01 AM EST) P athologist Signature POC Glucose 158 65 - 199 [place] mg/dL [facility] Comment: [...] Address City/[facility]/ZIP Code Phon e Number [address] POCT Glucose (07/10/2017 9:54 AM EST) P athologist Signature POC Glucose 160 65 - 199 [place] mg/dL [facility] Comment: [...] Address City/State/ZIP Code Phon e Number [address] POCT Glucose (07/10/2017 8:58 AM EST) P athologist Signature POC Glucose 183 65 - 199 [place] mg/dL [facility] Comment: [...] Address City/State/ZIP Code Phon e Number [address] POCT Glucose (07/10/2017 8:01 AM EST) P athologist Signature POC Glucose 173 65 - 199 [place] mg/dL [facility] Comment: Supplemental ranges: <140 mg/dL before meals <180 mg/dL all other times of the day Specimen Anatomical Collection Method Collection Time Receive d Time (Source) Location / / Volume Laterality Blood specimen 07/10/2017 8:01 AM 017 8:01 (specimen) EST AM EST uYan Webber MD POINT OF CARE TEST ORDERABLE S Performing Organization Address City/State/ZIP Code Phon e Number [address] POCT Glucose (07/10/2017 7:05 AM EST) athologist Signature POC Glucose 166 65 - 199 [place] mg/dL [facility] Comment: [...] Organization Address City/State/[place] [address] POCT Glucose (07/10/2017 6:00 AM EST) athologist Signature POC Glucose 162 65 - 199 [place] mg/dL [facility] Comment: [...] City/State/ZIP Code Phon e Number [place] [id number] [facility] LABORATORY Drive (ABNORMAL) Differential, Automated (07/10/2017 4:28 AM EST) [facility] Method Time Signature Neutrophils % 87.9 % [facility] Neutr Abs (ANC) 10.70 (H) 1.70 - [facility] 6.10 [facility] x10(3)/[facility] L LABORATORY Lymphocytes % 3.9 % [facility] Lymphocytes Abs 0.5 (L) 0.9 - 3.2 [facility] x10(3)/[facility] LABORATORY Monocytes % 7.0 % [facility] Monocyte Abs 0.8 0.3 - 0.9 [facility] x10(3)/[facility] LABORATORY Eosinophils % 0.3 % [facility] Eosinophils Abs 0.0 0.0 - 0.4 [facility] x10(3)/[facility] LABORATORY Basophils % 0.2 % [facility] Basophils Abs 0.0 0.0 - 0.1 [facility] x10(3)/[facility] LABORATORY Immature Gran % 0.70 % [...] Address City/[facility]/[place] [address] (ABNORMAL) Hemogram (07/10/2017 4:28 AM EST) Analysis Performed At Patho logist Time Signature WBC 12.2 (H) 4.0 - 9.5 [facility] x10(3)/[facility] LABORATORY RBC 3.31 (L) 4.58 - [place] 5.54 [facility] x10(6)/[facility] LABORATORY Hemoglobin 9.8 (L) 13.7 - [facility] 16.5 gm/dL [facility]ORY Hematocrit 30.0 (L) 40.5 - [facility] 48.5 % [facility]ORATORY MCV 90.6 82.9 - [facility] 93.1 [facility] LABORATORY MCH 29.6 27.5 - [facility] 32.1 pg [facility]ORY MCHC 32.7 32.0 - [facility] 35.7 gm/dL [facility]ORY Platelets 135 (L) 145 - 357 [facility] x10(3)/[facility] LABORATORY RDWSD 50.8 (H) 36.0 - [facility] 45.0 [facility] LABORATORY RDWCV 15.4 (H) 11.4 - [facility] 13.8 % [facility] LABORATORY MPV 10.0 7.6 - 12.9 [facility] LABORATORY nRBC % Auto 0.0 % [facility] LABOR[facility] nRBC Abs Auto 0.000 0.000 - [facility] 0.000 [facility] x10(3)/[facility] LABORATORY Specimen Anatomical Collection Method Collection Time Receive d Time (Source) Location / / Volume Laterality Blood specimen 07/10/2017 4:28 AM 017 4:36 (specimen) EST AM EST Resulting Agency Comment Spec In Lab Yuan Webber MD HEMATOLOGY ORDERABLES Performing Organization Address City/State/ZIP Code Phon e Number [address] (ABNORMAL) Basic Metabolic Panel (non-fasting) (07/10/2017 4:28 AM EST) P athologist Signature Glucose Lvl 178 65 - 199 [facility] mg/dL [facility] Comment: [...] [facility] LAB[facility]ORY Estimated GFR 60 >=60 [facility] Comment: The reported eGFR should be multiplied b y 1.2 for patients. The MDRD is not an appropriate measure o f renal function for patients with body mass extremes or in patients with acute kidney failure. http://Spool.Zapnip/DHnkdep http://Architectural Daily/DHMCnkf Specimen Anatomical Collection Method Collection Time Receive d Time (Source) Location / / Volume Laterality Blood specimen 07/10/2017 4:28 AM 017 4:36 (specimen) EST AM EST Resulting Agency Comment Spec In Lab Yuan Webber MD CHEMISTRY ORDERABLES Performing Organization Address City/State/Z[place] [address] POCT Glucose (07/10/2017 4:26 AM EST) P athologist Signature POC Glucose 176 65 - 199 [facility] mg/dL [facility] Comment: [...] Address City/State/ZIP Code Phon e Number [address] (ABNORMAL) POCT Glucose (07/10/2017 3:06 AM EST) P athologist Signature POC Glucose 204 (H) 65 - 199 [facility] mg/dL [facility] Comment: [...] Address City/[facility]/[place] [address] (ABNORMAL) POCT Glucose (07/10/2017 2:10 AM EST) P athologist Signature POC Glucose 203 (H) 65 - 199 [facility] mg/dL [facility] Comment: [...] Address City/State/ZIP Code Phon e Number [address] POCT Glucose (07/10/2017 1:09 AM EST) P athologist Signature POC Glucose 196 65 - 199 [facility] mg/dL [facility] Comment: [...] Address City/State/ZIP Code Phon e Number [address] POCT Glucose (07/10/2017 12:10 AM EST) P athologist Signature POC Glucose 173 65 - 199 [place] mg/dL [facility] Comment: [...] Organization Address City/State/[place] [address] POCT Glucose (07/09/2017 11:01 PM EST) P athologist Signature POC Glucose 140 65 - 199 [place] mg/dL [facility] Comment: [...] Organization Address City/State/[place] [address] POCT Glucose (07/09/2017 10:05 PM EST) P athologist Signature POC Glucose 144 65 - 199 [facility] mg/dL [facility] Comment: [...] Address City/State/ZIP Code Phon e Number [address] POCT Glucose (07/09/2017 9:31 PM EST) athologist Signature POC Glucose 121 65 - 199 [place] mg/dL [facility]ORY Comment: [...] Address City/[facility]/ZIP Code Phon e Number [address] POCT Glucose (07/09/2017 9:03 PM EST) athologist Signature POC Glucose 98 65 - 199 [place] mg/dL [facility]ORY Comment: [...] Address City/[facility]/ZIP Code Phon e Number [address] POCT Glucose (07/09/2017 8:09 PM EST) athologist Signature POC Glucose 117 65 - 199 [place] mg/dL [facility]ORY Comment: [...] Address City/State/ZIP Code Phon e Number [address] POCT Glucose (07/09/2017 5:40 PM EST) athologist Signature POC Glucose 155 65 - 199 [place] mg/dL [facility]ORY Comment: [...] Address City/State/ZIP Code Phon e Number [address] POCT Glucose (07/09/2017 4:24 PM EST) athologist Signature POC Glucose 164 65 - 199 [place] mg/dL [facility] Comment: [...] Address City/State/ZIP Code Phon e Number [address] POCT Glucose (07/09/2017 3:19 PM EST) athologist Signature POC Glucose 166 65 - 199 [facility] mg/dL [facility] Comment: [...] Organization Address City/State/[place] [address] POCT Glucose (07/09/2017 2:26 PM EST) athologist Signature POC Glucose 179 65 - 199 [place] mg/dL [facility] Comment: [...] Address City/[facility]/[place] [address] (ABNORMAL) POCT Glucose (07/09/2017 1:29 PM EST) athologist Signature POC Glucose 210 (H) 65 - 199 [place] mg/dL [facility] Comment: [...] Address City/[facility]/[place] [address] POCT Glucose (07/09/2017 12:20 PM EST) athologist Signature POC Glucose 172 65 - 199 [place] mg/dL [facility]ORY Comment: [...] Address City/State/ZIP Code Phon e Number [address] POCT Glucose (07/09/2017 11:24 AM EST) P athologist Signature POC Glucose 156 65 - 199 [place] [facility] mg/dL [facility]OR[facility]ORY Comment: [...] Address City/State/ZIP Code Phon e Number [address] POCT Glucose (07/09/2017 11:11 AM EST) P athologist Signature POC Glucose 172 65 - 199 [place] [facility] mg/dL [facility] Comment: [...] City/State/Z[place] [address] [facility] LAB[address]ATORY Drive POCT Glucose (07/09/2017 10:08 AM EST) P athologist Signature POC Glucose 176 65 - 199 [place] mg/dL [facility]ORY Comment: [...] e [place] [address] POCT Glucose (07/09/2017 8:02 AM EST) P athologist Signature POC Glucose 178 65 - 199 [facility] mg/dL [facility] Comment: [...] Organization Address City/State/[place] [address] (ABNORMAL) BLOOD GAS 2 ARTERIAL (07/09/2017 5:37 AM EST) Analysis Performed At Patho logist Time Signature pH Art 7.36 7.35 - [facility] 7.45 [facility] LABORATORY pCO2 Art 38 35 - 45 [facility] LABORATORY pO2 Art 79 (L) 85 - 104 [facility] LABORATORY HCO3 Art 20.9 20.0 - [facility] GENERAL 26.0 [facility] mmol/L [facility] LABORATORY BE Art -4.6 (L) -3.0 - 3.0 [facility] mmol/L [facility] LABORATORY Hgb Blood Gas 10.5 (L) 13.7 - [facility] 16.5 gm/dL [facility] LABORATORY O2HB Art 93.8 (L) 94.0 - [facility] 97.0 % [facility] COHB Art 0.3 % [facility] PF Ratio Art 198 [facility] LABORATORY Specimen Anatomical Collection Method Collection Time Receive d Time (Source) Location / / Volume Laterality Blood specimen 07/09/2017 5:37 AM 017 5:37 (specimen) EST AM EST Yuan Webber MD CHEMISTRY ORDERABLES Performing Organization Address City/[facility]/[place] [address] POCT Glucose (07/09/2017 3:27 AM EST) P athologist Signature POC Glucose 192 65 - 199 [facility] mg/dL [facility]OR[facility]ORY Comment: [...] Address City/[facility]/[place] [address] (ABNORMAL) Basic Metabolic Panel (non-fasting) (07/09/2017 2:30 AM EST) P athologist Signature Glucose Lvl 179 65 - 199 [facility] mg/dL [facility]ORY Comment: [...] or in patients with acute kidney failure. [email or web address] Daily/DHnkdep http://Architectural Daily/DHMCnkf Specimen Anatomical Collection Method Collection Time Receive d Time (Source) Location / / Volume Laterality Blood specimen Venous Draw / 07/09/2017 2:30 AM 2016 2:42 (specimen) Unknown EST AM EST Resulting Agency Comment Spec In Lab Yuan Webber MD CHEMISTRY ORDERABLES Performing Organization Address City/State/[place] [address] (ABNORMAL) Potassium (07/09/2017 2:30 AM EST) P athologist Signature Potassium 5.1 (H) 3.5 - 5.0 [facility] mmol/L [facility] LAB[facility] Comment: Please note: ??Patients [...] City/State/[place] [address] (ABNORMAL) Hemogram (07/09/2017 2:30 AM EST) Analysis Performed At Patho logist Time Signature WBC 12.5 (H) 4.0 - 9.5 [facility] x10(3)/[facility] LABORATORY RBC 3.38 (L) 4.58 - [facility] 5.54 [facility] x10(6)/[facility] LABORATORY Hemoglobin 10.1 (L) 13.7 - [facility] 16.5 gm/dL [facility] LABOR[facility]ORY Hematocrit 30.3 (L) 40.5 - [facility] 48.5 % [facility] LABORATORY MCV 89.6 82.9 - [facility] 93.1 [facility] LABORATORY MCH 29.9 27.5 - [place] RYAN 32.1 pg [facility] LABORATORY MCHC 33.3 32.0 - [facility] 35.7 gm/dL [facility] LABORATORY Platelets 127 (L) 145 - 357 [facility] x10(3)/[facility] LABORATORY RDWSD 49.3 (H) 36.0 - [place]ALINA RYAN 45.0 [facility] LABORATORY RDWCV 15.2 (H) 11.4 - [facility] RYAN 13.8 % [facility] LABORATORY MPV 9.9 7.6 - 12.9 [facility] LABORATORY nRBC % Auto 0.0 % [facility] LABORATORY nRBC Abs Auto 0.000 0.000 - [place] RYAN 0.000 [facility] x10(3)/[facility] LABORATORY Specimen Anatomical Collection Method Collection Time Receive d Time (Source) Location / / Volume Laterality Blood specimen 07/09/2017 2:30 AM 017 2:41 (specimen) EST AM EST Resulting Agency Comment Spec In Lab Yuan Webber MD HEMATOLOGY ORDERABLES Performing Organization Address City/[facility]/ZIP Code Phon e Number [address] POCT Glucose (07/09/2017 2:10 AM EST) P athologist Signature POC Glucose 169 65 - 199 [place] ZHAORYAN mg/dL [facility] LABORATORY Comment: [...] Address City/[facility]/[place] [address] POCT Glucose (07/09/2017 1:01 AM EST) P athologist Signature POC Glucose 173 65 - 199 [place] ZHAORYAN mg/dL [facility] LABORATORY Comment: [...] Address City/[facility]/ZIP Code Phon e Number [address] Blood culture (07/09/2017 12:40 AM EST) [facility] Method Time Signature Blood Culture No growth [facility] at 5 days. [facility] LABORATORY Specimen Anatomical Collection Method Collection Time Receive d Time (Source) Location / / Volume Laterality Blood specimen STRUCTURE OF RIGHT 07/09/2017 12:40 3:58 (specimen) UPPER LIMB / AM EST AM EST Unknown Resulting Agency Comment Spec In Lab Yuan Webber MD MICROBIOLOGY - BLOOD ORDERAB LES Performing Organization Address City/State/[place] [address] Blood culture (07/09/2017 12:30 AM EST) [facility] Cloud[employer] Method Time Signature Blood Culture No growth KATALINA DAVIS at 5 days. [facility] LABORATORY Specimen Anatomical Collection Method Collection Time Receive d Time (Source) Location / / Volume Laterality Blood specimen STRUCTURE OF LEFT 07/09/2017 12:30 1211/2016 3:59 (specimen) UPPER LIMB / AM EST AM EST Unknown Resulting Agency Comment Spec In Lab Yuan Webber MD MICROBIOLOGY - BLOOD ORDERAB LES Performing Organization Address City/[facility]/[place] [address] (ABNORMAL) Urinalysis Microscopic Exam (07/09/2017 12:05 AM EST) Analysis Performed At Patho logist Time Signature RBC UA 32 (H) 0 - 3 /HPF [facility] LABORATORY WBC UA 5 (H) 0 - 3 /HPF [facility] Squam Epith UA <1 <=4 /HPF [facility] Hyaline Cast 17 (H) 0 - 2 /LPF [facility] LABORATORY Gran Cast UA 1 (H) <=0 /LPF [facility]OR[facility]ORY Uric Ac Bianca Rare (A) None /HPF [facility] LABOR[facility]ORY Specimen (Source) Anatomical Collection Method Collection Time Re ceived Time Location / / Volume Laterality Urine specimen 07/09/2017 12:05 07/09/ 7 obtained via AM EST 12:39 AM EST indwelling urinary catheter (specimen) Resulting Agency Comment Spec In Lab Yuan Webber MD URINE ORDERABLES Performing Organization Address City/State/[place] [address] (ABNORMAL) Urinalysis with reflex Culture (07/09/2017 12:05 AM EST) [facility] [employer] Method Time Signature Glucose UA Negative Negative [place]AL[place] DAVIS mg/dL [facility]OR[facility]ORY Protein UA 30 (A) Negative [facility] Bilirubin UA Negative Negative [facility] mg/dL [facility] LAB[facility]ATORY Comment: Clinical correlation required [...] [facility] Nitrite UA Negative Negative [facility]OR[facility] Leukocytes UA Negative Negative [facility] LABORATORY Appearance UA Hazy (A) Clear [facility] LABORATORY Spec Elizabeth UA 1.025 1.002 - 1.030 [facility] LABORATORY Color UA Yellow Yellow [facility] LABORATORY Culture Reflexed No [facility] LABORATORY Specimen (Source) Anatomical Collection Method Collection Time Re ceived Time Location / / Volume Laterality Urine specimen 07/09/2017 12:05 7 obtained via AM EST 12:39 AM EST indwelling urinary catheter (specimen) Resulting Agency Comment Spec In Lab Yuan Webber MD URINE ORDERABLES Performing Organization Address City/[facility]/Z[place] [address] POCT Glucose (07/08/2017 11:01 PM EST) P athologist Signature POC Glucose 191 65 - 199 [facility] mg/dL [facility] LABORATORY Comment: [...] e [place] [address] POCT Glucose (07/08/2017 10:04 PM EST) athologist Signature POC Glucose 198 65 - 199 [facility]/dL [facility] LABORATORY Comment: [...] Address City/State/ZIP Code Phon e Number [address] Prepare Albumin 5% in [...] Address City/State/ZIP Code Phon e Number [address] POCT Glucose (07/08/2017 8:28 PM EST) athologist Signature POC Glucose 195 65 - 199 [place]AL[place] RYAN mg/dL [facility] LABORATORY Comment: [...] Organization Address City/State/[place] [address] (ABNORMAL) POCT Glucose (07/08/2017 7:13 PM EST) P athologist Signature POC Glucose 220 (H) 65 - 199 [facility] mg/dL [facility] LABORATORY Comment: [...] Address City/State/ZIP Code Phon e Number [address] POCT Glucose (07/08/2017 5:04 PM EST) athologist Signature POC Glucose 147 65 - 199 [facility]ORY Comment: [...] Organization Address City/State/[place] [address] (ABNORMAL) BLOOD GAS 2 ARTERIAL (07/08/2017 4:13 PM EST) Analysis Performed At Patho logist Time Signature pH Art 7.38 7.35 - [facility] 7.45 [facility] LABORATORY pCO2 Art 36 35 - 45 [facility] LABORATORY pO2 Art 91 85 - 104 [facility] LABORATORY HCO3 Art 20.9 20.0 - [facility] 26.0 [facility] mmol/L [facility] LABORATORY BE Art -4.2 (L) -3.0 - 3.0 [facility] mmol/L [facility] LABORATORY Hgb Blood Gas 11.7 (L) 13.7 - [facility] 16.5 gm/dL [facility] LABORATORY O2HB Art 95.1 94.0 - [facility] 97.0 % [facility]ORATORY COHB Art 0.6 % [facility] PF Ratio Art 228 [facility] LABOR[facility]ORY Specimen Anatomical Collection Method Collection Time Receive d Time (Source) Location / / Volume Laterality Blood specimen 07/08/2017 4:13 PM 017 4:13 (specimen) EST PM EST Yuan Webber MD CHEMISTRY ORDERABLES Performing Organization Address City/State/[place] [address] POCT Glucose (07/08/2017 4:01 PM EST) P athologist Signature POC Glucose 148 65 - 199 [facility] mg/dL [facility] LABORATORY Comment: [...] Address City/State/ZIP Code Phon e Number [address] POCT Glucose (07/08/2017 3:21 PM EST) athologist Signature POC Glucose 118 65 - 199 KATAL[place] ZHAORYAN mg/dL [facility] LABORATORY Comment: [...] Address City/State/ZIP Code Phon e Number [address] POCT Glucose (07/08/2017 2:01 PM EST) athologist Signature POC Glucose 129 65 - 199 KATALINA ZHAORYAN mg/dL [facility] LABORATORY Comment: [...] Organization Address City/State/[place] [address] POCT Glucose (07/08/2017 11:53 AM EST) athologist Signature POC Glucose 156 65 - 199 [place]AL[place] ZHAORYAN mg/dL [facility] LABORATORY Comment: [...] Address City/State/ZIP Code Phon e Number [address] POCT Glucose (07/08/2017 11:04 AM EST) athologist Signature POC Glucose 181 65 - 199 [facility] mg/dL [facility] LABORATORY Comment: [...] Address City/[facility]/[place] [address] (ABNORMAL) POCT Glucose (07/08/2017 9:24 AM EST) athologist Signature POC Glucose 203 (H) 65 - 199 [facility] LAB[facility]ORY Comment: [...] Organization Address City/State/[place] [address] APTT (07/08/2017 8:40 AM [...] Address City/[facility]/[place] [address] (ABNORMAL) Prothrombin Time (07/08/2017 [...] Address City/[facility]/[place] [address] (ABNORMAL) POCT Glucose (07/08/2017 7:38 AM EST) P athologist Signature POC Glucose 232 (H) 65 - 199 [facility] mg/dL [facility] LAB[facility]ATORY Comment: [...] Address City/[facility]/[place] [address] (ABNORMAL) POCT Glucose (07/08/2017 7:07 AM EST) athologist Signature POC Glucose 234 (H) 65 - 199 [facility] mg/dL [facility] LAB[facility]ORY Comment: [...] Organization Address City/State/[place] [address] (ABNORMAL) POCT Glucose (07/08/2017 6:04 AM EST) athologist Signature POC Glucose 225 (H) 65 - 199 [facility] mg/dL [facility] LAB[facility]ORY Comment: [...] Organization Address City/State/[place] [address] (ABNORMAL) POCT Glucose (07/08/2017 5:31 AM EST) athologist Signature POC Glucose 216 (H) 65 - 199 [facility] mg/dL [facility] Comment: [...] Organization Address City/State/[place] [address] (ABNORMAL) POCT Glucose (07/08/2017 4:52 AM EST) P athologist Signature POC Glucose 257 (H) 65 - 199 [facility] mg/dL [facility] LABORATORY Comment: [...] City/State/[place] [address] (ABNORMAL) BLOOD GAS 2 ARTERIAL (07/08/2017 4:04 AM EST) Analysis Performed At Patho logist Time Signature pH Art 7.30 (L) 7.35 - [facility] 7.45 [facility] LABORATORY pCO2 Art 41 35 - 45 [facility] LABORATORY pO2 Art 83 (L) 85 - 104 [facility] LABORATORY HCO3 Art 19.6 (L) 20.0 - [facility] 26.0 [facility] mmol/[facility] LABORATORY BE Art -6.8 (L) -3.0 - 3.0 [facility] mmol/L [facility] LABORATORY Hgb Blood Gas 12.2 (L) 13.7 - [facility] 16.5 gm/dL [facility] LABORATORY O2HB Art 93.5 (L) 94.0 - [facility] 97.0 % [facility] LABORATORY COHB Art 0.4 % [facility] [...] HOSPITAL LABORATORY Comment: Noted by electrical and instrumentation mechanic. FIO2 Art 40 % [facility] LABORATORY PF Ratio Art 208 [facility] LABORATORY Specimen Anatomical Collection Method Collection Time Receive d Time (Source) Location / / Volume Laterality Blood specimen 07/08/2017 4:04 AM 017 4:04 (specimen) EST AM EST Daphne Shahid MD CHEMISTRY ORDERABLES Performing Organization Address City/[facility]/ZIP Code Phon e Number [address] Scan, Peripheral Blood (07/08/2017 [...] Address City/State/ZIP Code Phon e Number [address] (ABNORMAL) Differential, Automated (07/08/2017 4:00 AM EST) Patholo gist Method Time Signature Neutrophils % 85.4 % [facility] LABORATORY Neutr Abs (ANC) 16.07 (H) 1.70 - [facility] 6.10 [facility] x10(3)/[facility] L LABORATORY Lymphocytes % 3.5 % [facility] LABORATORY Lymphocytes Abs 0.6 (L) 0.9 - 3.2 [facility] x10(3)/[facility] LABORATORY Monocytes % 10.4 % [facility] LABORATORY Monocyte Abs 2.0 (H) 0.3 - 0.9 [facility] x10(3)/[facility] LABORATORY Eosinophils % 0.0 % [facility] LABORATORY Eosinophils Abs 0.0 0.0 - 0.4 [facility] x10(3)/[facility] LABORATORY Basophils % 0.1 % [facility] LABORATORY Basophils Abs 0.0 0.0 - 0.1 [facility] x10(3)/[facility] LABORATORY Immature Gran % 0.60 % [...] City/State/[place] [address] (ABNORMAL) Hemogram (07/08/2017 4:00 AM EST) Analysis Performed At Patho logist Time Signature WBC 18.8 (H) 4.0 - 9.5 [facility] x10(3)/[facility] LABORATORY RBC 4.00 (L) 4.58 - [facility] 5.54 [facility] x10(6)/[facility] LABORATORY Hemoglobin 11.9 (L) 13.7 - [facility] 16.5 gm/dL [facility] LABORATORY Hematocrit 35.9 (L) 40.5 - [place] DAVIS 48.5 % [facility] LABORATORY MCV 89.8 82.9 - [facility] 93.1 [facility] LABORATORY MCH 29.8 27.5 - [place] OLIVASCK 32.1 pg [facility] LABORATORY MCHC 33.1 32.0 - KATALINA DAVIS 35.7 gm/dL [facility] LABORATORY Platelets 232 145 - 357 [facility] x10(3)/[facility] LABORATORY RDWSD 47.6 (H) 36.0 - K[place]ALINA DAVIS 45.0 [facility] LABORATORY RDWCV 14.5 (H) 11.4 - [facility] 13.8 % [facility] LABORATORY MPV 9.5 7.6 - 12.9 [facility] LABORATORY nRBC % Auto 0.0 % [facility] nRBC Abs Auto 0.000 0.000 - [facility] x10(3)/[facility] LABORATORY Specimen Anatomical Collection Method Collection Time Receive d Time (Source) Location / / Volume Laterality Blood specimen 07/08/2017 4:00 AM 017 4:09 (specimen) EST AM EST Resulting Agency Comment Spec In Lab Yuan Webber MD HEMATOLOGY ORDERABLES Performing Organization Address City/State/ZIP Code Phon e Number [place] [id number]OS[address] LAB[address]ORY Drive (ABNORMAL) Electrolytes panel (07/08/2017 4:00 AM EST) P athologist Signature Sodium 139 135 - 145 [facility] mmol/L [facility] LABORATORY Potassium 4.7 3.5 - 5.0 [facility] mmol/L [facility] LABORATORY Comment: result rechecked-JLK Please note: ??Patients with WBC >100,00 0 may have falsely elevated Potassium levels. ??For accurate Potassium quantif ication in these patients send serum separator tube (gold top) for subsequent determinations. ??Contact the Clinical Chemistry Laboratory if there are any qu estions. Chloride 104 98 - 107 mmol/L [facility] LABOR[facility]ORY CO2 21 (L) 22 - 31 mmol/L [facility] Anion Gap 14 5 - 15 mmol/L KATALINA RYAN [facility] LABORATORY Specimen Anatomical Collection Method Collection Time Receive d Time (Source) Location / / Volume Laterality Blood specimen 07/08/2017 4:00 AM 017 4:10 (specimen) EST AM EST Resulting Agency Comment Spec In Lab Yuan Webber MD CHEMISTRY ORDERABLES Performing Organization Address City/State/[place] [address] (ABNORMAL) Cardiac Enzymes (LEB/CGP) (07/08/2017 4:00 AM EST) P athologist Signature Troponin-T 1.88 (H) 0.00 - [facility] 0.00 ng/mL [facility] LABORATORY Comment: The 99th percentile [...] additional sample may be indicated. Reference: Third [place] Definition of Myocardial Infarction. Journal of the [place] [employer] 2012;60:1581-98 CK, Total 413 (H) 0 - 200 unit/L [facility] Comment: result rechecked-JLK Specimen Anatomical Collection Method Collection Time Receive d Time (Source) Location / / Volume Laterality Blood specimen 07/08/2017 4:00 AM 017 4:09 (specimen) EST AM EST Resulting Agency Comment Spec In Lab Yuan Webber MD CHEMISTRY ORDERABLES Performing Organization Address City/State/ZIP Code Phon e Number [address] (ABNORMAL) Glucose, fasting (07/08/2017 4:00 AM EST) P athologist Signature Glucose 287 (H) 65 - 99 [facility] Fasting mg/dL [facility] LABORATORY Comment: ?Fasting* Glucose Interpretive [...] Address City/[facility]/[place] [address] (ABNORMAL) Creatinine (07/08/2017 4:00 AM EST) Analysis Performed At Patho logist Time Signature Creatinine 1.55 (H) 0.80 - [facility] 1.50 mg/dL [facility] LABORATORY Estimated GFR 44 (L) >=60 [facility] Comment: The reported eGFR should be multiplied b y 1.2 for patients. The MDRD is not an appropriate measure o f renal function for patients with body mass extremes or in patients with acute kidney failure. http://Spool.Zapnip/DHadelitakdep http://Spool.Zapnip/DHMCnkf Specimen Anatomical Collection Method Collection Time Receive d Time (Source) Location / / Volume Laterality Blood specimen 07/08/2017 4:00 AM 017 4:09 (specimen) EST AM EST Resulting Agency Comment Spec In Lab Yuan Webber MD CHEMISTRY ORDERABLES Performing Organization Address City/[facility]/ZIP Code Phon e Number [address] BUN (07/08/2017 4:00 AM EST) P athologist Signature BUN 16 10 - 20 KATALINA RYAN mg/dL [facility] LABORATORY Specimen Anatomical Collection Method Collection Time Receive d Time (Source) Location / / Volume Laterality Blood specimen 07/08/2017 4:00 AM 017 4:09 (specimen) EST AM EST Resulting Agency Comment Spec In Lab Yuan Webber MD CHEMISTRY ORDERABLES Performing Organization Address City/[facility]/[place] [address] (ABNORMAL) POCT Glucose (07/08/2017 3:00 AM EST) athologist Signature POC Glucose 273 (H) 65 - 199 [facility] mg/dL [facility] LABORATORY Comment: [...] Address City/[facility]/ZIP Code Phon e Number [address] (ABNORMAL) POCT Glucose (07/08/2017 1:57 AM EST) P athologist Signature POC Glucose 288 (H) 65 - 199 [facility] mg/dL [facility] LABORATORY Comment: [...] Address City/[facility]/[place] [address] (ABNORMAL) POCT Glucose (07/08/2017 1:01 AM EST) athologist Signature POC Glucose 315 (H) 65 - 199 [facility] mg/dL [facility] LABORATORY Comment: [...] Address City/[facility]/[place] [address] (ABNORMAL) BLOOD GAS 2 ARTERIAL (07/08/2017 12:09 AM EST) athologist Signature pH Art 7.26 7.35 - [facility] (Critical) 7.45 [facility] LABORATORY Comment: Noted by electrical and instrumentation mechanic. pCO2 Art 41 35 - 45 [...] HOSPITAL LABORATORY Comment: Noted by electrical and instrumentation mechanic. FIO2 Art 40 % [facility] LABORATORY PF Ratio Art 240 [facility] LABORATORY Specimen Anatomical Collection Method Collection Time Receive d Time (Source) Location / / Volume Laterality Blood specimen Arterial Draw / 07/08/2017 12:09 2016 5:31 (specimen) Unknown AM EST AM EST Resulting Agency Comment Spec In Lab Samy Maldonado MD CHEMISTRY ORDERABLES Performing Organization Address City/State/[place] [address] (ABNORMAL) POCT Glucose (07/07/2017 10:56 PM EST) P athologist Signature POC Glucose 292 (H) 65 - 199 [facility] mg/dL [facility] LABORATORY Comment: [...] City/State/[place] [address] (ABNORMAL) BLOOD GAS 2 ARTERIAL (07/07/2017 10:04 PM EST) athologist Signature pH Art 7.22 7.35 - [facility] (Critical) 7.45 [facility] Comment: Noted by electrical and instrumentation mechanic. pCO2 Art 42 35 - 45 [...] HOSPITAL LABORATORY Comment: Noted by electrical and instrumentation mechanic. FIO2 Art 40 % [facility] PF Ratio Art 235 [facility] Specimen Anatomical Collection Method Collection Time Receive d Time (Source) Location / / Volume Laterality Blood specimen 07/07/2017 10:04 7 (specimen) PM EST 10:04 PM EST Daphne Shahid MD CHEMISTRY ORDERABLES Performing Organization Address City/[facility]/ZIP Code Phon e Number [address] (ABNORMAL) Hemoglobin (07/07/2017 10:00 PM EST) P athologist Signature Hemoglobin 12.8 (L) 13.7 - [facility] 16.5 gm/dL [facility] Specimen Anatomical Collection Method Collection Time Receive d Time (Source) Location / / Volume Laterality Blood specimen 07/07/2017 10:00 7 (specimen) PM EST 10:13 PM EST Resulting Agency Comment Spec In Lab Yuan Webber MD HEMATOLOGY ORDERABLES Performing Organization Address City/[facility]/[place] [address] (ABNORMAL) Potassium (07/07/2017 10:00 PM EST) P athologist Signature Potassium 3.4 (L) 3.5 - 5.0 [facility] mmol/L [facility] Comment: Please note: ??Patients [...] Organization Address City/State/[place] [address] (ABNORMAL) POCT Glucose (07/07/2017 8:49 PM EST) P athologist Signature POC Glucose 241 (H) 65 - 199 [facility] mg/dL [facility] Comment: [...] Address City/[facility]/[place] [address] Prepare Albumin 5% in 250 mL (07/07/2017 8:03 PM EST) athologist Signature Dispensed? Yes [facility] Specimen Anatomical Collection Method Collection Time Receive d Time (Source) Location / / Volume Laterality Blood specimen No Charge / 07/07/2017 8:03 PM 017 8:04 (specimen) Unknown EST PM EST Resulting Agency Comment Spec In Lab Michael BROWN BLOOD BANK ORDERABLES Performing Organization Address City/[facility]/[place] [address] EKG 12 Lead (07/07/2017 7:17 PM EST) Component Value Ref Range Test Analysis Performed Pathologis t Method Time At Signature Ventricular rate 75 BPM MUSE SYSTEM Atrial Rate 75 BPM MUSE SYSTEM P-R Interval 168 ms MUSE SYSTEM QRS Duration 104 ms MUSE SYSTEM Q-T Interval 462 ms MUSE SYSTEM QTC Calculated 515 ms MUSE SYSTEM (Bezet) Calculated P [place] 52 degrees MUSE SYSTEM Calculated R [place] -40 degrees MUSE SYSTEM Calculated T [place] 39 degrees MUSE SYSTEM INTERPRETATION Normal sinus [...] - [facility] (Critical) 7.45 [facility] Comment: Noted by electrical and instrumentation mechanic. pCO2 Art 50 (H) 35 - [...] HOSPITAL LABORATORY Comment: Noted by electrical and instrumentation mechanic. Please note: Patients with WBC >100,000 [...] HOSPITAL LABORATORY Comment: Noted by electrical and instrumentation mechanic. FIO2 Art 100 % [facility] PF Ratio Art 238 [facility] Specimen Anatomical Collection Method Collection Time Receive d Time (Source) Location / / Volume Laterality Blood specimen 07/07/2017 6:57 PM 017 6:57 (specimen) EST PM EST Daphne Shahid MD CHEMISTRY ORDERABLES Performing Organization Address City/State/[place] [address] (ABNORMAL) BLOOD GAS 2 ARTERIAL (07/07/2017 5:31 PM EST) P athologist Signature pH Art 7.29 7.35 - [facility] (Critical) 7.45 [facility] Comment: Noted by electrical and instrumentation mechanic. pCO2 Art 48 (H) 35 - [...] Address City/[facility]/ZIP Code Phon e Number [address] Fibrinogen (07/07/2017 5:30 PM EST) P athologist Signature Fibrinogen 224 180 - 510 [facility] mg/dL [facility] Comment: Called by: JEET, [...] EST Resulting Agency Comment Spec In Lab Yifna Perez MD HEMATOLOGY ORDERABLES Performing Organization Address City/[facility]/ZIP [facility] Phon e Number [address] APTT (07/07/2017 5:30 PM [...] MD HEMATOLOGY ORDERABLES Performing Organization Address City/[facility] [place] [address] (ABNORMAL) Prothrombin Time (07/07/2017 [...] MD HEMATOLOGY ORDERABLES Performing Organization Address City/[facility] [place] [address] (ABNORMAL) Hemogram (07/07/2017 5:30 PM EST) P athologist Signature WBC 19.6 (H) 4.0 - 9.5 [facility] x10(3)/[facility] LABORATORY RBC 3.08 (L) 4.58 - [facility] 5.54 [facility] x10(6)/[facility] LABORATORY Hemoglobin 9.2 (L) 13.7 - [facility] 16.5 gm/dL [facility] Hematocrit 28.0 (L) 40.5 - [facility] 48.5 % [facility] Comment: This result has been called to MONICA MORAN by DONALD GROSSMAN on 07 07 2017 at 1759, and has been read back. MCV 90.9 82.9 - 93.1 [facility] LABORATORY MCH 29.9 27.5 - 32.1 pg [facility] MCHC 32.9 32.0 - 35.7 gm/dL [facility] Platelets 155 145 - 357 x10(3)/[facility] LABORATORY RDWSD 46.5 (H) 36.0 - 45.0 [facility] LABORATORY RDWCV 14.1 (H) 11.4 - 13.8 % [facility] LABORATORY MPV 9.5 7.6 - 12.9 [facility] LABORATORY nRBC % Auto 0.0 % [facility] nRBC Abs Auto 0.000 0.000 - 0.000 x10(3)/[facility] LABORATORY Specimen Anatomical Collection Method Collection Time Receive d Time (Source) Location / / Volume Laterality Blood specimen 07/07/2017 5:30 PM 017 5:34 (specimen) EST PM EST Resulting Agency Comment Spec In Lab Yifan Perez MD HEMATOLOGY ORDERABLES Performing Organization Address City/State/[place] [address] Prepare Platelets, Apheresis (07/07/2017 5:00 PM EST) P athologist Signature Dispensed? Yes [facility] Specimen Anatomical Collection Method Collection Time Receive d Time (Source) Location / / Volume Laterality Blood specimen 07/07/2017 5:00 PM 017 4:58 (specimen) EST PM EST Daphne Shahid MD BLOOD BANK ORDERABLES Performing Organization Address City/State/[place] [address] Platelet count (07/07/2017 4:55 PM EST) P athologist Signature Platelets 177 145 - 357 KATALINA DAVIS x10(3)/[facility] LABORATORY Plat Immature 1.5 0.0 - 7.4 [facility] DAVIS % % [facility] Comment: Limitation of the Immature Platelet Frac tion (IPF)-May be less reliable when the platelet count is less than [id number]/u L due to statistical imprecision. The IPF [...] in a decreased state of production. References: [employer] The Clinical Value of the Immature Platelet Fraction (IPF) in Cell Recovery Document Number 10-1143 12/2010 [employer] The Role of the Imm ature [...] City/State/[place] [address] (ABNORMAL) Hemoglobin and Hematocrit, blood (07/07/2017 4:55 PM EST) P athologist Signature Hemoglobin 9.1 (L) 13.7 - 16.5 [facility] DAVIS gm/dL [facility] Comment: This result has [...] City/State/[place] [address] (ABNORMAL) BLOOD GAS 2 ARTERIAL (07/07/2017 4:38 PM EST) Analysis Performed At Patho logist Time Signature pH Art 7.37 7.35 - [facility] 7.45 [facility] pCO2 Art 44 35 - 45 [facility] mmHg [facility] pO2 Art 322 (H) 85 - 104 [facility] LABORATORY HCO3 Art 24.9 20.0 - [facility] 26.0 [facility] mmol/L [facility] LABORATORY BE Art -0.4 -3.0 - 3.0 [facility] mmol/L [facility] Hgb Blood Gas 10.1 (L) 13.7 - [facility] 16.5 gm/dL [facility] O2HB Art 98.7 (H) 94.0 - [facility] 97.0 % [facility] COHB Art 0.1 % [facility] HOSPITAL LABORATORY Comment: Noted by electrical and instrumentation mechanic. Note: ??Total bilirubin higher than 20 [...] City/State/[place] [address] (ABNORMAL) BLOOD GAS 2 VENOUS (07/07/2017 4:06 PM EST) Analysis Performed At Patho logist Time Signature pH Cody 7.31 (L) 7.32 - [facility] 7.42 [facility] pCO2 Cody 47 41 - 51 [facility] LABORATORY pO2 Cody 53 (H) 25 - 40 [facility] LABORATORY HCO3 Cody 22.7 mmol/L [facility] BE Cody -3.7 mmol/L [facility] Hgb Blood Gas 10.2 (L) 13.7 - [facility] 16.5 gm/dL [facility] O2HB Cody 81.0 % [facility] H[facility]PITAL LABORATORY Comment: Noted by electrical and instrumentation mechanic. Note: ??Total bilirubin higher than 20 [...] City/State/[place] [address] (ABNORMAL) BLOOD GAS 2 ARTERIAL (07/07/2017 4:05 PM EST) Analysis Performed At Patho logist Time Signature pH Art 7.36 7.35 - [facility] 7.45 [facility] pCO2 Art 40 35 - 45 [facility] mmHg [facility] pO2 Art 282 (H) 85 - 104 [facility] LABORATORY HCO3 Art 22.1 20.0 - [facility] 26.0 [facility] mmol/L [facility] LABORATORY BE Art -3.4 (L) -3.0 - 3.0 [facility] mmol/L [facility] Hgb Blood Gas 10.2 (L) 13.7 - [facility] 16.5 gm/dL [facility] O2HB Art 98.4 (H) 94.0 - [facility] 97.0 % [facility] COHB Art 0.3 % [facility]PITAL LAB[facility]ATORY Comment: Noted by electrical and instrumentation mechanic. Note: ??Total bilirubin higher than 20 [...] City/State/[place] [address] (ABNORMAL) BLOOD GAS 2 ARTERIAL (07/07/2017 2:29 PM EST) Analysis Performed At Patho logist Time Signature pH Art 7.43 7.35 - [facility] 7.45 [facility] pCO2 Art 36 35 - 45 [facility] LABORATORY pO2 Art 221 (H) 85 - 104 [facility] LABORATORY HCO3 Art 23.2 20.0 - [facility] 26.0 [facility] mmol/[facility] LABORATORY BE Art -1.2 -3.0 - 3.0 [facility] mmol/L [facility] Hgb Blood Gas 13.9 13.7 - [facility] 16.5 gm/dL [facility] O2HB Art 97.8 (H) 94.0 - [facility] 97.0 % [facility] COHB Art 1.1 % [facility] [...] City/State/[place] [address] Prepare Coag Factors (Non-Hemophilia) (07/07/2017 1:25 PM EST) P athologist Signature Dispensed? Yes [facility] Specimen Anatomical Collection Method Collection Time Receive d Time (Source) Location / / Volume Laterality Blood specimen 07/07/2017 1:25 PM 017 1:21 (specimen) EST PM EST Daphne Shahid MD BLOOD BANK ORDERABLES Performing Organization Address City/State/ZIP Code Phon e Number [address] Prepare RBC (07/07/2017 1:10 PM EST) P athologist Signature Dispensed? Yes [facility] Specimen Anatomical Collection Method Collection Time Receive d Time (Source) Location / / Volume Laterality Blood specimen 07/07/2017 1:10 PM 017 1:05 (specimen) EST PM EST Daphne Shahid MD BLOOD BANK ORDERABLES Performing Organization Address City/State/[place] [address] POCT Glucose (07/07/2017 11:56 AM EST) P athologist Signature POC Glucose 188 65 - 199 [facility] Comment: [...] Address City/[facility]/[place] [address] POCT Glucose (07/07/2017 11:05 AM EST) P athologist Signature POC Glucose 168 65 - 199 [facility] mg/dL [facility] Comment: [...] Organization Address City/State/[place] [address] POCT Glucose (07/07/2017 10:02 AM EST) athologist Signature POC Glucose 191 65 - 199 KATALINA ZHAORYAN mg/dL [facility] Comment: [...] Address City/State/ZIP Code Phon e Number [address] POCT Glucose (07/07/2017 7:53 AM EST) athologist Signature POC Glucose 178 65 - 199 [facility] mg/dL [facility] Comment: [...] Organization Address City/State/[place] [address] POCT Glucose (07/07/2017 7:03 AM EST) athologist Signature POC Glucose 188 65 - 199 [facility] mg/dL [facility] Comment: [...] Organization Address City/State/[place] [address] (ABNORMAL) POCT Glucose (07/07/2017 6:17 AM EST) athologist Signature POC Glucose 207 (H) 65 - 199 [facility] mg/dL [facility] Comment: [...] City/State/ZIP Code Phon e Number [place] [id number]OS[address] Differential, Automated (07/07/2017 5:15 AM EST) [facility] Neutrophils % 69.7 % [facility] Neutr Abs (ANC) 5.32 1.70 - [facility] 6.10 [facility] x10(3)/[facility] LABORATORY Lymphocytes % 16.3 % [facility] Lymphocytes Abs 1.2 0.9 - 3.2 [facility] x10(3)/[facility] LABORATORY Monocytes % 10.5 % [facility] Monocyte Abs 0.8 0.3 - 0.9 [facility] x10(3)[facility] LABORATORY Eosinophils % 2.5 % [facility] Eosinophils Abs 0.2 0.0 - 0.4 [facility] x10(3)/[facility] LABORATORY Basophils % 0.7 % [facility] Basophils Abs 0.0 0.0 - 0.1 [facility] x10(3)/[facility] LABORATORY Immature Gran % 0.30 [...] 0.00 - 0.04 x10(3)/[facility] LABORATORY Specimen Anatomical Collection Method Collection Time Receive d Time (Source) Location / / Volume Laterality Blood specimen 07/07/2017 5:15 AM 017 5:34 (specimen) EST AM EST Resulting Agency Comment Spec In Lab Daphne Shahid MD HEMATOLOGY ORDERABLES Performing Organization Address City/[facility]/Z[place] [address] (ABNORMAL) Hemogram (07/07/2017 5:15 AM EST) Analysis Performed At Patho logist Time Signature WBC 7.6 4.0 - 9.5 [facility] x10(3)/[facility] LABORATORY RBC 4.82 4.58 - [facility] 5.54 [facility] x10(6)/[facility] LABORATORY Hemoglobin 14.4 13.7 - [facility] 16.5 gm/dL [facility] Hematocrit 42.1 40.5 - [facility] 48.5 % [facility] MCV 87.3 82.9 - [facility] 93.1 [facility] LABORATORY MCH 29.9 27.5 - [facility] 32.1 pg [facility] MCHC 34.2 32.0 - [facility] 35.7 gm/dL [facility] Platelets 188 145 - 357 [facility] x10(3)/[facility] LABORATORY RDWSD 45.1 (H) 36.0 - [facility] 45.0 [facility] LABORATORY RDWCV 14.3 (H) 11.4 - [facility] 13.8 % [facility]ORATORY MPV 9.4 7.6 - 12.9 [facility] LABORATORY nRBC % Auto 0.0 % [facility] nRBC Abs Auto 0.000 0.000 - [facility] 0.000 [facility] x10(3)/[facility] LABORATORY Specimen Anatomical Collection Method Collection Time Receive d Time (Source) Location / / Volume Laterality Blood specimen 07/07/2017 5:15 AM 017 5:34 (specimen) EST AM EST Resulting Agency Comment Spec In Lab Daphne Shahid MD HEMATOLOGY ORDERABLES Performing Organization Address City/State/[place] [address] (ABNORMAL) APTT (07/07/2017 5:15 [...] Address City/[facility]/[place] [address] Magnesium (07/07/2017 5:15 AM EST) athologist Signature Magnesium 0.94 0.69 - 1.07 [facility] mmol/L [facility] Specimen Anatomical Collection Method Collection Time Receive d Time (Source) Location / / Volume Laterality Blood specimen 07/07/2017 5:15 AM 017 5:34 (specimen) EST AM EST Resulting Agency Comment Spec In Lab Daphne Shahid MD CHEMISTRY ORDERABLES Performing Organization Address City/[facility]/[place] [address] (ABNORMAL) Basic Metabolic Panel (non-fasting) (07/07/2017 5:15 AM EST) P athologist Signature Glucose Lvl 203 (H) 65 - 199 [facility] mg/dL [facility] Comment: [...] [facility] Estimated GFR >60 >=60 [facility] Comment: The reported eGFR should be multiplied b y 1.2 for patients. The MDRD is not an appropriate measure o f renal function for patients with body mass extremes or in patients with acute kidney failure. http://[employer]/DHnkdep http://[employer]/DHMCnkf Specimen Anatomical Collection Method Collection Time Receive d Time (Source) Location / / Volume Laterality Blood specimen 07/07/2017 5:15 AM 017 5:34 (specimen) EST AM EST Resulting Agency Comment Spec In Lab Daphne Shahid MD CHEMISTRY ORDERABLES Performing Organization Address City/State/[place] [address] (ABNORMAL) Cardiac Enzymes (LEB/CGP) (07/07/2017 5:15 AM EST) P athologist Signature Troponin-T 2.07 (H) 0.00 - [facility] 0.00 ng/mL [facility] Comment: The 99th percentile [...] additional sample may be indicated. Reference: Third Marcus Hook Definition of Myocardial Infarction. Journal of the [...] Address City/[facility]/ZIP Code Phon e Number [address] POCT Glucose (07/07/2017 5:01 AM EST) athologist Signature POC Glucose 182 65 - 199 [facility] mg/dL [facility] Comment: Supplemental ranges: <140 mg/dL before meals <180 mg/dL all other times of the day Specimen Anatomical Collection Method Collection Time Receive d Time (Source) Location / / Volume Laterality Blood specimen 07/07/2017 5:01 AM 017 5:01 (specimen) EST AM EST Daphne Shahid MD POINT OF CARE TEST ORDERABLE S Performing Organization Address City/[facility]/ZIP [facility] Phon e Number [address] POCT Glucose (07/07/2017 4:08 AM EST) athologist Signature POC Glucose 199 65 - 199 [facility] mg/dL [facility] Comment: [...] Address City/State/ZIP Code Phon e Number [address] POCT Glucose (07/07/2017 3:03 AM EST) athologist Signature POC Glucose 188 65 - 199 [facility] RYAN mg/dL [facility] Comment: [...] Organization Address City/State/[place] [address] (ABNORMAL) POCT Glucose (07/07/2017 2:08 AM EST) athologist Signature POC Glucose 200 (H) 65 - 199 [facility] RY[facility] mg/dL [facility] Comment: [...] Address City/State/ZIP Code Phon e Number [address] (ABNORMAL) POCT Glucose (07/07/2017 1:31 AM EST) athologist Signature POC Glucose 209 (H) 65 - 199 [facility] RYAN mg/dL [facility] Comment: [...] City/State/[place] [address] XR Chest PA or [...] - 199 [facility] mg/dL [facility] Comment: [...] Organization Address City/State/[place] [address] (ABNORMAL) APTT (07/07/2017 12:00 [...] Address City/[facility]/[place] [address] POCT Glucose (07/06/2017 9:55 PM EST) athologist Signature POC Glucose 109 65 - 199 [facility] mg/dL [facility] Comment: [...] Address City/[facility]/[place] [address] POCT Glucose (07/06/2017 9:04 PM EST) athologist Signature POC Glucose 120 65 - 199 [facility] mg/dL [facility] Comment: [...] Address City/[facility]/[place] [address] POCT Glucose (07/06/2017 7:45 PM EST) athologist Signature POC Glucose 158 65 - 199 [facility] mg/dL [facility] Comment: [...] Address City/[facility]/[place] [address] Potassium (07/06/2017 7:40 PM EST) athologist Signature Potassium 3.9 3.5 - 5.0 [facility] mmol/L [facility] Comment: Please note: ??Patients [...] Address City/[facility]/[place] [address] (ABNORMAL) Cardiac Enzymes (LEB/CGP) (07/06/2017 7:40 PM EST) athologist Signature Troponin-T 2.27 (H) 0.00 - [facility] 0.00 ng/mL [facility] Comment: The 99th percentile [...] additional sample may be indicated. Reference: Third Marcus [place] Definition of Myocardial Infarction. Journal of the [...] City/State/[place] [address] (ABNORMAL) POCT Glucose (07/06/2017 7:13 PM EST) athologist Signature POC Glucose 200 (H) 65 - 199 [facility] mg/dL [facility] Comment: [...] Address City/[facility]/[place] [address] (ABNORMAL) APTT (07/06/2017 6:15 [...] Address City/[facility]/[place] [address] (ABNORMAL) POCT Glucose (07/06/2017 6:03 PM EST) athologist Signature POC Glucose 236 (H) 65 - 199 [facility] mg/dL [facility] Comment: [...] Address City/[facility]/[place] [address] (ABNORMAL) POCT Glucose (07/06/2017 5:01 PM EST) athologist Signature POC Glucose 235 (H) 65 - 199 [facility] mg/dL [facility] LABORATORY Comment: [...] Organization Address City/State/[place] [address] (ABNORMAL) POCT Glucose (07/06/2017 4:06 PM EST) athologist Signature POC Glucose 202 (H) 65 - 199 [place] mg/dL [facility] LABORATORY Comment: [...] Organization Address City/State/[place] [address] POCT Glucose (07/06/2017 2:59 PM EST) athologist Signature POC Glucose 178 65 - 199 [place] mg/dL [facility] LABORATORY Comment: [...] Organization Address City/State/[place] [address] (ABNORMAL) Cardiac Enzymes (LEB/CGP) (07/06/2017 2:10 PM EST) athologist Signature Troponin-T 2.34 (H) 0.00 - [facility] 0.00 ng/mL [facility] LABORATORY Comment: The 99th percentile [...] additional sample may be indicated. Reference: Third Marcus Hook Definition of Myocardial Infarction. Journal of the [...] City/State/[place] [address] POCT Glucose (07/06/2017 2:08 PM EST) P athologist Signature POC Glucose 192 65 - 199 [facility] mg/dL [facility] LABORATORY Comment: [...] Address City/State/ZIP Code Phon e Number [address] POCT Glucose (07/06/2017 1:04 PM EST) P athologist Signature POC Glucose 162 65 - 199 [facility] Comment: [...] Address [facility]/ZIP Code Phon e Number [address] POCT Glucose (07/06/2017 12:05 PM EST) athologist Signature POC Glucose 196 65 - 199 [facility] Comment: [...] Organization Address City/State/[place] [address] EKG 12 Lead (07/06/2017 12:00 PM EST) Component Value Ref Range Test Analysis Performed Pathologis t Method Time At Signature Ventricular rate 91 BPM MUSE SYSTEM Atrial Rate 91 BPM MUSE SYSTEM P-R Interval 140 ms MUSE SYSTEM QRS Duration 94 ms MUSE SYSTEM Q-T Interval 394 ms MUSE SYSTEM QTC Calculated 484 ms MUSE SYSTEM (Bezet) Calculated P [place] 36 degrees MUSE SYSTEM Calculated R [place] -19 degrees MUSE SYSTEM Calculated T [place] 104 degrees MUSE SYSTEM INTERPRETATION Normal sinus rhythm MUSE SYSTEM 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) ST & T wave abnormality, consider lateral ischemia Abnormal ECG When compared with ECG of 05-JUL-2017 20:39, No significant change was found Confirmed by MD Verma Gregory A. ([id number]) on 07/06/2017 5:07:33 PM Specimen Anatomical Collection [...] Address [facility]/[place] [address] Antibody screen (07/06/2017 12:00 PM EST) [facility] Method Time Signature Ab Screen Negative [facility] LABORATORY Expires at 07/09/2017 [facility] 235 on: [facility] LABORATORY Specimen Anatomical Collection Method Collection Time Receive d Time (Source) Location / / Volume Laterality Blood specimen 07/06/2017 12:00 7 (specimen) PM EST 12:24 PM EST Resulting Agency Comment Spec In Lab Daphne Shahid MD BLOOD BANK ORDERABLES Performing Organization Address [facility]/[place] [address] ABO/Rh Typing (07/06/2017 12:00 [...] Organization Address City/State/[place] [address] Prothrombin Time (07/06/2017 11:24 [...] Address [facility]/[place] [address] (ABNORMAL) APTT (07/06/2017 11:24 [...] Organization Address City/State/[place] [address] POCT Glucose (07/06/2017 11:02 AM EST) athologist Signature POC Glucose 187 65 - 199 [facility] mg/dL [facility] LABORATORY Comment: [...] Address City/State/ZIP Code Phon e Number [address] POCT Glucose (07/06/2017 10:18 AM EST) athologist Signature POC Glucose 193 65 - 199 [facility] mg/dL [facility] LABORATORY Comment: [...] Address City/State/ZIP Code Phon e Number [address] POCT Glucose (07/06/2017 9:25 AM EST) athologist Signature POC Glucose 182 65 - 199 [place] mg/dL [facility] LABOR[facility]ORY Comment: [...] Organization Address City/State/[place] [address] (ABNORMAL) Cardiac Enzymes (LEB/CGP) (07/06/2017 8:10 AM EST) athologist Signature Troponin-T 2.26 (H) 0.00 - [facility] 0.00 ng/mL [facility]ORY Comment: The 99th percentile [...] additional sample may be indicated. Reference: Third Marcus Hook Definition of Myocardial Infarction. Journal of the [...] City/State/[place] [address] Magnesium (07/06/2017 8:10 AM EST) athologist Signature Magnesium 0.84 0.69 - 1.07 [facility] mmol/L [facility] LABORATORY Specimen Anatomical Collection Method Collection Time Receive d Time (Source) Location / / Volume Laterality Blood specimen 07/06/2017 8:10 AM 017 8:21 (specimen) EST AM EST Resulting Agency Comment Spec In Lab Daphne Shahid MD CHEMISTRY ORDERABLES Performing Organization Address [facility]/[place] [address] (ABNORMAL) Basic Metabolic Panel (non-fasting) (07/06/2017 8:10 AM EST) P athologist Signature Glucose Lvl 199 65 - 199 [facility] mg/dL [facility] LABORATORY Comment: [...] [facility] LAB[facility]ORY Estimated GFR >60 >=60 [facility] LABORATORY Comment: The reported eGFR should be multiplied b y 1.2 for patients. The MDRD is not an appropriate measure o f renal function for patients with body mass extremes or in patients with acute kidney failure. http://Spool.Zapnip/DHnkdep http://Spool.Zapnip/DHMCnkf Specimen Anatomical Collection Method Collection Time Receive d Time (Source) Location / / Volume Laterality Blood specimen 07/06/2017 8:10 AM 017 8:21 (specimen) EST AM EST Resulting Agency Comment Spec In Lab Daphne Shahid MD CHEMISTRY ORDERABLES Performing Organization Address [facility]/[place] [address] POCT Glucose (07/06/2017 7:34 AM EST) P athologist Signature POC Glucose 198 65 - 199 [facility] Comment: [...] Address City/State/ZIP Code Phon e Number [address] POCT Glucose (07/06/2017 7:03 AM EST) athologist Signature POC Glucose 181 65 - 199 [facility] mg/dL [facility] Comment: [...] Organization Address City/State/[place] [address] XR Chest PA or [...] Glucose 172 65 - 199 [facility] mg/dL [facility]ORY Comment: [...] City/State/[place] [address] POCT Glucose (07/06/2017 5:08 AM EST) athologist Signature POC Glucose 154 65 - 199 [facility] mg/dL [facility] Comment: [...] Address City/State/ZIP Code Phon e Number [address] POCT Glucose (07/06/2017 4:05 AM EST) athologist Signature POC Glucose 142 65 - 199 [facility] mg/dL [facility] Comment: [...] Address [facility]/ZIP Code Phon e Number [address] POCT Glucose (07/06/2017 3:00 AM EST) athologist Signature POC Glucose 116 65 - 199 [facility] Comment: [...] Address City/State/ZIP Code Phon e Number [address] Potassium (07/06/2017 2:20 AM EST) athologist Signature Potassium 3.9 3.5 - 5.0 [facility] mmol/L [facility] LABORATORY Comment: Please note: ??Patients [...] City/State/[place] [address] Differential, Automated (07/06/2017 2:20 AM EST) athologist Signature Neutrophils % 72.9 % [facility] LABORATORY Neutr Abs (ANC) 5.53 1.70 - [facility] 6.10 [facility] x10(3)[facility] LABORATORY Lymphocytes % 16.4 % [facility] Lymphocytes Abs 1.2 0.9 - 3.2 [facility] x10(3)/[facility] LABORATORY Monocytes % 9.4 % [facility] Monocyte Abs 0.7 0.3 - 0.9 [facility] x10(3)/[facility] LABORATORY Eosinophils % 0.5 % [facility] Eosinophils Abs 0.0 0.0 - 0.4 [facility] x10(3)[facility] LABORATORY Basophils % 0.4 % [facility] Basophils Abs 0.0 0.0 - 0.1 [facility] x10(3)/[facility] LABORATORY Immature Gran % 0.40 % [facility] Comment: Immature granulocytes(IG's)percentage an d absolute count will include metamyelocytes, myelocytes, and promyelo cytes. Blood smears from CBCs yielding IG's will be scanned manually for concor dance. If this scan disagrees with the automated IG or if promyelocytes are not ed, a manual differential will be performed. Melisa Gran Abs 0.03 0.00 - 0.04 x10(3)/[facility] LABORATORY Specimen Anatomical Collection Method Collection Time Receive d Time (Source) Location / / Volume Laterality Blood specimen 07/06/2017 2:20 AM 017 2:33 (specimen) EST AM EST Resulting Agency Comment Spec In Lab Daphne Shahid MD HEMATOLOGY ORDERABLES Performing Organization Address City/State/[place] [address] (ABNORMAL) Hemogram (07/06/2017 2:20 AM EST) Analysis Performed At Patho logist Time Signature WBC 7.6 4.0 - 9.5 [facility] x10(3)/[facility] LABORATORY RBC 4.52 (L) 4.58 - [facility] 5.54 [facility] x10(6)/[facility] LABORATORY Hemoglobin 13.4 (L) 13.7 - [facility] 16.5 gm/dL [facility] LABORATORY Hematocrit 39.7 (L) 40.5 - [facility] 48.5 % [facility] LABORATORY MCV 87.8 82.9 - [facility] 93.1 [facility] LABORATORY MCH 29.6 27.5 - [place] 32.1 pg [facility] LABORATORY MCHC 33.8 32.0 - [facility] 35.7 gm/dL [facility] LABORATORY Platelets 189 145 - 357 [facility] x10(3)/[facility] LABORATORY RDWSD 45.6 (H) 36.0 - [facility] 45.0 [facility] LABORATORY RDWCV 14.3 (H) 11.4 - [facility] 13.8 % [facility] LABORATORY MPV 9.1 7.6 - 12.9 [facility] LAB[facility]ORY nRBC % Auto 0.0 % [facility] LABORATORY nRBC Abs Auto 0.000 0.000 - [place] [employer] 0.000 [facility] x10(3)/[facility] LABORATORY Specimen Anatomical Collection Method Collection Time Receive d Time (Source) Location / / Volume Laterality Blood specimen 07/06/2017 2:20 AM 017 2:33 (specimen) EST AM EST Resulting Agency Comment Spec In Lab Daphne Shahid MD HEMATOLOGY ORDERABLES Performing Organization Address City/State/ZIP Code Phon [place] [address] (ABNORMAL) APTT (07/06/2017 2:20 [...] Organization Address City/State/[place] [address] POCT Glucose (07/06/2017 2:20 AM EST) athologist Signature POC Glucose 115 65 - 199 [facility] mg/dL [facility] LABORATORY Comment: [...] Organization Address City/State/[place] [address] (ABNORMAL) Cardiac Enzymes (LEB/CGP) (07/06/2017 2:20 AM EST) athologist Signature Troponin-T 2.13 (H) 0.00 - [facility] 0.00 ng/mL [facility] LABORATORY Comment: The 99th percentile [...] additional sample may be indicated. Reference: Third Marcus Hook Definition of Myocardial Infarction. Journal of the [...] City/State/[place] [address] (ABNORMAL) Hemoglobin A1c (07/06/2017 [...] with hemoglobinopathies. Additional resources are available on [facility] ADA website. Macario HAMMOND, Ruthann J, Deysi R, et al. ??Tr anslating the A1C assay into estimated average glucose values. ??Diabetes Care 2008:31(8):1384-2805. Specimen Anatomical Collection Method Collection Time Receive d Time (Source) Location / / Volume Laterality Blood specimen 07/06/2017 2:20 AM 017 2:34 (specimen) EST AM EST Resulting Agency Comment Spec In Lab Daphne Shahid MD CHEMISTRY ORDERABLES Performing Organization Address City/State/[place] [address] (ABNORMAL) Lipid Panel (07/06/2017 2:20 AM EST) [facility] Method Time Signature Chol, Total 150 <=239 [place] mg/dL [facility] LABORATORY Triglycerides 129 <=199 [place] mg/dL [facility] LABORATORY HDL 32 (L) >=40 [place] mg/dL [facility] LABORATORY LDL Cholesterol 92 <=190 [place] mg/dL [facility] LABORATORY Chol/HDL Ratio 4.7 ratio [place] [facility] LABORATORY Lipid See Note [place] Hernandes [facility] LABORATORY Comment: Lipid management should be guided by a p atient? s ASCVD risk, goals and preferences. ACC/AHA Guidelines recommend high intens ity statin if clinical ASCVD or LDL greater than or equal to 190 mg/dL. http://ShareighturPlastio.com/IVW-FEH-Nxvookjyn Adults aged 40-75 with LDL 70-189 mg/dL should have their 10 year ASCVD risk estimated with the ACC/AHA ASCVD risk es timator http://tools.acc.org/TOUEA-Qvju-Tcllatbq r/ Statin should be discussed if risk [...] City/State/[place] [address] POCT Glucose (07/06/2017 1:09 AM EST) P athologist Signature POC Glucose 121 65 - 199 [facility] mg/dL [facility] LABORATORY Comment: [...] Address City/State/ZIP [place] [address] POCT Glucose (07/06/2017 12:06 AM EST) athologist Signature POC Glucose 147 65 - 199 [facility]/dL [facility] LABORATORY Comment: [...] Organization Address City/State/[place] [address] (ABNORMAL) POCT Glucose (07/05/2017 10:56 PM EST) athologist Signature POC Glucose 200 (H) 65 - 199 [facility] mg/dL [facility] LABORATORY Comment: [...] Organization Address City/State/[place] [address] (ABNORMAL) POCT Glucose (07/05/2017 10:05 PM EST) athologist Signature POC Glucose 225 (H) 65 - 199 [facility] mg/dL [facility] LABORATORY Comment: [...] Organization Address City/State/[place] [address] (ABNORMAL) POCT Glucose (07/05/2017 9:02 PM EST) P athologist Signature POC Glucose 301 (H) 65 - 199 [place] mg/dL [facility] LABORATORY Comment: [...] Organization Address City/State/ZIP Code [facility] [address] XR Chest PA or [...] 474 ms MUSE SYSTEM (Bezet) Calculated P [place] 50 degrees MUSE SYSTEM Calculated R [place] -28 degrees MUSE SYSTEM Calculated T [place] 90 degrees MUSE SYSTEM INTERPRETATION Sinus tachycardia [...] 1.70 - [facility] 6.10 [facility] x10(3)/[facility] L LABORATORY Lymphocytes % 7.0 % [facility] LABORATORY Lymphocytes Abs 0.7 (L) 0.9 - 3.2 [facility] x10(3)/[facility] LABORATORY Monocytes % 3.7 % [facility] LABORATORY Monocyte Abs 0.4 0.3 - 0.9 [facility] x10(3)/[facility] LABORATORY Eosinophils % 0.1 % [facility] LABORATORY Eosinophils Abs 0.0 0.0 - 0.4 [facility] x10(3)/[facility] LABORATORY Basophils % 0.2 % [facility] LABORATORY Basophils Abs 0.0 0.0 - 0.1 [facility] x10(3)/[facility] LABORATORY Immature Gran % 0.60 % [...] City/State/[place] [address] (ABNORMAL) Hemogram (07/05/2017 8:20 PM EST) Analysis Performed At Patho logist Time Signature WBC 10.3 (H) 4.0 - 9.5 [facility] x10(3)/[facility] LABORATORY RBC 4.64 4.58 - [facility] 5.54 [facility] x10(6)/[facility] LABORATORY Hemoglobin 14.1 13.7 - [facility] 16.5 gm/dL [facility] LABORATORY Hematocrit 40.8 40.5 - [place] 48.5 % [facility] LABORATORY MCV 87.9 82.9 - [facility] 93.1 [facility] LABORATORY MCH 30.4 27.5 - [place] 32.1 pg [facility] LABORATORY MCHC 34.6 32.0 - [facility] 35.7 gm/dL [facility] LABORATORY Platelets 204 145 - 357 [facility] x10(3)/[facility] LABORATORY RDWSD 46.1 (H) 36.0 - [place] 45.0 [facility] LABORATORY RDWCV 14.5 (H) 11.4 - [facility] 13.8 % [facility] LABORATORY MPV 9.7 7.6 - 12.9 [facility] LABORATORY nRBC % Auto 0.0 % [facility] LABORATORY nRBC Abs Auto 0.000 0.000 - [place] ZHA[facility]AN 0.000 [facility] x10(3)/[facility] LABORATORY Specimen Anatomical Collection Method Collection Time Receive d Time (Source) Location / / Volume Laterality Blood specimen 07/05/2017 8:20 PM 017 8:27 (specimen) EST PM EST Resulting Agency Comment Spec In Lab Daphne Shahid MD HEMATOLOGY ORDERABLES Performing Organization Address [facility]/ZIP Code Phon e Number [address] APTT (07/05/2017 8:20 PM [...] HEMATOLOGY ORDERABLES Performing Organization Address [facility]/ZIP [facility] [place] [address] (ABNORMAL) Cardiac Enzymes (LEB/CGP) (07/05/2017 8:20 PM EST) P athologist Signature Troponin-T 2.11 (H) 0.00 - [facility] 0.00 ng/mL [facility] LABORATORY Comment: The 99th percentile [...] Samples for cTnT testing should be obtai pedrol uis serially upon first assessment and again 3 to 6 hours later. If the clinica l suspicion is high and previous samples have been negative an additional sample may be indicated. Reference: Third Marcus Hook Definition of Myocardial Infarction. Journal of the [...] Address City/[facility]/[place] [address] (ABNORMAL) Magnesium (07/05/2017 8:20 PM EST) P athologist Signature Magnesium 0.68 (L) 0.69 - 1.07 [facility] mmol/L [facility] LABORATORY Specimen Anatomical Collection Method Collection Time Receive d Time (Source) Location / / Volume Laterality Blood specimen 07/05/2017 8:20 PM 017 8:27 (specimen) EST PM EST Resulting Agency Comment Spec In Lab Daphne Shahid MD CHEMISTRY ORDERABLES Performing Organization Address City/State/[place] [address] (ABNORMAL) Basic Metabolic Panel (non-fasting) (07/05/2017 8:20 PM EST) athologist Signature Glucose Lvl 321 (H) 65 - 199 [facility] mg/dL [facility] LABORATORY Comment: [...] [facility] LAB[facility]ORY Estimated GFR >60 >=60 [facility] LABORATORY Comment: The reported eGFR should be multiplied b y 1.2 for patients. The MDRD is not an appropriate measure o f renal function for patients with body mass extremes or in patients with acute kidney failure. http://Spool.Zapnip/DHnkdep http://Architectural Daily/DHMCnkf Specimen Anatomical Collection Method Collection Time Receive d Time (Source) Location / / Volume Laterality Blood specimen 07/05/2017 8:20 PM 017 8:27 (specimen) EST PM EST Resulting Agency Comment Spec In Lab Daphne Shahid MD CHEMISTRY ORDERABLES Performing Organization Address City/State/[place] [address] (ABNORMAL) POCT Glucose (07/05/2017 7:32 PM EST) athologist Signature POC Glucose 296 (H) 65 - 199 [facility] mg/dL [facility] LABORATORY Comment: [...] Address City/State/ZIP Code Phon [place] [address] CARDIAC CATHETERIZATION (07/05/2017 6:47 PM EST) Anatomical Region Laterality Modality Other Specimen (Source) Anatomical Location Collection Method / Collectio n Time Received Time / Laterality Volume Narrative 07/05/2017 7:27 PM EST ?[facility] ? Cardiac Cathete rization/Intervention Report ? Patient Name: Natalya, Gregory ? Procedure Date: 07/05/2017 ? A #: [id number] ? Primary Physician: Clarisa, Jet T ? Case #: [id number] ? File Name: [id number] ? Catheterization Order Number: [id number] ? [facility] ? Final Report [place], [place] ? Patient Name: ? Gregory Natalya ?ID#: ?[id number] ? : ?1945 ? Procedure Date: ? [...] site angio graphy and IABP insertion in oil laboratory analyst. ? Jet Mckenna, M.D. ? Electronically Signed by: Jet Sampson DeVrizack s, M.D. ? Report Finalized: 07/05/2017 ??19:23 ? Report Last Ammended: 10/26/2017 ??10:29 ? Procedure Note Jet Mckenna MD - 10/26/2017Formatt ing of this note might be different from the original. [facility] Cardiac Catheterization/Intervention Re port Patient Name: Gregory Hoang Procedure Date: 07/05/2017 A #: [id number] Primary Physician: Jet Mckenna Case #: [id number] File Name: [id number] Catheterization Order Number: [id number] [facility] Final Report [place], [place] Patient Name: Gregory Hoang ID#: [id number] : 1945 Procedure Date: July 05, [...] site angiograph y and IABP insertion in oil laboratory analyst. Jet Mckenna M.D. Electronically Signed by: [...] E ? (Age): 1945(72y) Med Rec#: ? [id number] ?Sex: ?M ? Site Loc: ? [facility] ?Ht / Wt: ??173(cm)/86(kg) Pt. Loc: ?CCU ? BSA: ?2 Study Date: ?? 07/05/2017 ?Pt. Type: Inpatient Tape: ? Referring: Daphne Shahid ([id number]) Referring: MANDA ALCANTAR Reading: Blade Preston ([id number]) [employer] Crew Chief: Dayami Paula BA, [facility] Diagnosis: *ICD-10-PCS Non-ST elevation (NSTEMI) m [...] E-wave Vmax ?0.8 ?m/sec ? MV deceleration [id number] ?msec ? MV A-wave Vmax ?0.8 ?m/sec [...] ? Mid-Inferior ?Akinetic ? Mid-Inferoseptal ?Hypokinetic ? [place]-Septal ? Akinetic ? [place]-Anterior ? Hypokinetic ? [place]-Lateral ?Hypokinetic ? [place]-Inferior ? Akinetic ? [place]-Tip ?Akinetic ? This report has been electronically sign ed by: _ Blade Preston MD ? 07/06/2017 08 :53:15 Images reviewed and interpretation verif ied [facility] Cardiac Ultrasound Laboratory Procedure Note Blade Preston MD - 07/06/2017Formatt ing of this note might be different from the original. Procedure: Transthoracic Echocardiogram Patient: NATALYA MCBRIDE(Age): [birth year]72y) Med Rec#: [id number] Sex: M Site Loc: [facility] Ht / Wt: 173(cm)/86(kg) Pt. Loc: U BSA: 2 Study Date: 07/05/2017 Pt. 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 Aircraft Crew Chief: Dayami Paula BA, [facility] Diagnosis: *ICD-10-PCS Non-ST elevation (NSTEMI) m [...] MV E-wave Vmax 0.8 m/sec MV deceleration [id number] msec MV A-wave Vmax 0.8 m/sec MV [...] Hypokinetic Mid-Posterolateral Hypokinetic Mid-Inferior Akinetic Mid-Inferoseptal Hypokinetic [place]-Septal Akinetic [place]-Anterior Hypokinetic [place]-Lateral Hypokinetic [place]-Inferior Akinetic [place]-Tip Akinetic This report has been electronically sign ed by: _ Blade Preston MD 07/06/2017 08:53:15 Images reviewed and interpretation verif ied [facility] Cardiac Ultrasound Laboratory Daphne Shahid MD ECHO ORDERABLES Differential, Automated (07/05/2017 4:55 PM EST) athologist Signature Neutrophils % 77.0 % [facility] Neutr Abs (ANC) 5.26 1.70 - [facility] 6.10 [facility] x10(3)[facility] Lymphocytes % 13.3 % [facility] Lymphocytes Abs 0.9 0.9 - 3.2 [facility] x10(3)/[facility] LABORATORY Monocytes % 8.2 % [facility] Monocyte Abs 0.6 0.3 - 0.9 [facility] x10(3)/[facility] LABORATORY Eosinophils % 0.7 % [facility] Eosinophils Abs 0.0 0.0 - 0.4 [facility] x10(3)[facility] LABORATORY Basophils % 0.4 % [facility] Basophils Abs 0.0 0.0 - 0.1 [facility] x10(3)/[facility] LABORATORY Immature Gran % 0.40 % [facility] Comment: Immature granulocytes(IG's)percentage an d absolute count will include metamyelocytes, myelocytes, and promyelo cytes. Blood smears from CBCs yielding IG's will be scanned manually for concor dance. If this scan disagrees with the automated IG or if promyelocytes are not ed, a manual differential will be performed. Melisa Gran Abs 0.03 0.00 - 0.04 x10(3)/[facility] LABORATORY Specimen Anatomical Collection Method Collection Time Receive d Time (Source) Location / / Volume Laterality Blood specimen 07/05/2017 4:55 PM 017 5:24 (specimen) EST PM EST Resulting Agency Comment Spec In Lab Daphne Shahid MD HEMATOLOGY ORDERABLES Performing Organization Address City/State/[place] [address] (ABNORMAL) Hemogram (07/05/2017 4:55 PM EST) Analysis Performed At Patho logist Time Signature WBC 6.8 4.0 - 9.5 [facility] x10(3)/[facility] LABORATORY RBC 4.67 4.58 - [place] 5.54 [facility] x10(6)/[facility] LABORATORY Hemoglobin 14.0 13.7 - [facility] 16.5 gm/dL [facility]OR[facility]ORY Hematocrit 41.0 40.5 - [facility] 48.5 % [facility]ORATORY MCV 87.8 82.9 - [facility] 93.1 [facility] LABORATORY MCH 30.0 27.5 - [place] 32.1 pg [facility] LABORATORY MCHC 34.1 32.0 - [place] 35.7 gm/dL [facility] Platelets 197 145 - 357 [facility] x10(3)/[facility] LABORATORY RDWSD 46.4 (H) 36.0 - [facility] 45.0 [facility] LABORATORY RDWCV 14.5 (H) 11.4 - [facility] 13.8 % [facility] LABORATORY MPV 9.7 7.6 - 12.9 [facility] LAB[facility]ORY nRBC % Auto 0.0 % [facility] nRBC Abs Auto 0.000 0.000 - [facility] 0.000 [facility] x10(3)/[facility] LABORATORY Specimen Anatomical Collection Method Collection Time Receive d Time (Source) Location / / Volume Laterality Blood specimen 07/05/2017 4:55 PM 017 5:24 (specimen) EST PM EST Resulting Agency Comment Spec In Lab Daphne Shahid MD HEMATOLOGY ORDERABLES Performing Organization Address City/State/[place] [address] (ABNORMAL) Cardiac Enzymes (LEB/CGP) (07/05/2017 4:55 PM EST) P athologist Signature Troponin-T 1.69 (H) 0.00 - [place] 0.00 ng/mL [facility] Comment: The 99th percentile [...] additional sample may be indicated. Reference: Third Marcus [place] Definition of Myocardial Infarction. Journal of the [...] City/State/ZIP Code Phon e Number [place] [phone]OSP[address] (ABNORMAL) pro-Brain Natriuretic Peptide (07/05/2017 4:55 PM EST) P athologist Signature ProBNP 1,598 (H) <=125 [facility] pg/mL [facility] LABOR[facility]ORY Specimen Anatomical Collection Method Collection Time Receive d Time (Source) Location / / Volume Laterality Blood specimen 07/05/2017 4:55 PM 017 5:24 (specimen) EST PM EST Resulting Agency Comment Spec In Lab Daphne Shahid MD CHEMISTRY ORDERABLES Performing Organization Address City/State/ZIP Code Phon e Number [address] Magnesium (07/05/2017 4:55 PM EST) P athologist Signature Magnesium 0.78 0.69 - 1.07 [facility] mmol/L [facility] LABORATORY Specimen Anatomical Collection Method Collection Time Receive d Time (Source) Location / / Volume Laterality Blood specimen 07/05/2017 4:55 PM 017 5:24 (specimen) EST PM EST Resulting Agency Comment Spec In Lab Daphne Shahid MD CHEMISTRY ORDERABLES Performing Organization Address City/[facility]/[place] [address] (ABNORMAL) Basic Metabolic Panel (non-fasting) (07/05/2017 4:55 PM EST) P athologist Signature Glucose Lvl 230 (H) 65 - 199 [facility] mg/dL [facility]ORY Comment: [...] [facility] Estimated GFR >60 >=60 [facility] Comment: The reported eGFR should be multiplied b y 1.2 for patients. The MDRD is not an appropriate measure o f renal function for patients with body mass extremes or in patients with acute kidney failure. http://Spool.Zapnip/DHnkdep http://Architectural Daily/MCnkf Specimen Anatomical Collection Method Collection Time Receive d Time (Source) Location / / Volume Laterality Blood specimen 07/05/2017 4:55 PM 017 5:24 (specimen) EST PM EST Resulting Agency Comment Spec In Lab Daphne Shahid MD CHEMISTRY ORDERABLES Performing Organization Address City/[facility] Code Phon e Number [address] (ABNORMAL) APTT (07/05/2017 4:55 [...] MD HEMATOLOGY ORDERABLES Performing Organization Address City/[facility] [place] [address] (ABNORMAL) POCT Glucose (07/05/2017 4:53 PM EST) P athologist Signature POC Glucose 208 (H) 65 - 199 [facility] mg/dL [facility] Comment: [...] City/State/ZIP Code Phon e Number [place] [phone] HOSPITAL LAB[address]ORY Drive EKG 12 Lead (07/05/2017 4:32 PM EST) Component Value Ref Range Test Analysis Performed Pathologis t Method Time At Signature Ventricular rate 97 BPM MUSE SYSTEM Atrial Rate 97 BPM MUSE SYSTEM P-R Interval 148 ms MUSE SYSTEM QRS Duration 96 ms MUSE SYSTEM Q-T Interval 364 ms MUSE SYSTEM QTC Calculated 462 ms MUSE SYSTEM (Bezet) Calculated P [place] 48 degrees MUSE SYSTEM Calculated R [place] -33 degrees MUSE SYSTEM Calculated T [place] 98 degrees MUSE SYSTEM INTERPRETATION Normal sinus [...] in dextrose 5% 250 mL EST infusion (JUKEBOX CHECKER) CONTINUOUS PRN, Starting on Wed07/05/17 at 1837, [...] 1,000 mg 0544 (Given - Provider: Carmen eBrry, VAMSI) 1,000 mg, Oral, EVERY 6 HOURS [...] in this encounter Care Teams Director Of Social Work Relationship Specialty Start Date End Date Lovely Vicente MD PCP - General 04/16/[address] [place] [address] [address] [place] [address] documented as of this encounter
--- OUTSIDE RECORDS SUMMARY | 2022-05-01 09:03 | XMS_ITS | Encounter Summary ---
:1945 Author Organization [facility] [place] [address] Care Team Providers Name Role Phone MiyaLokeshAngela STACIE Primary Care Provider Encounter Details Date Type Department Care Team Description 04/04/2013 Orders Only General Surgery at Manny Mcknight thyroid [facility] MD Eliseo carcinoma (Primary Dx) [facility] [place] [address] GENERAL SURGERY [phone] [place], [place] 0[address] Social History Tobacco Use Types [...] Dolan MD [facility] er [address] [place], [place] [address] (Wo rk) 05/28/2022 Laboratory Appointment Lab 05/28/2022 Office Visit Cardiology Zulma Dolan MD [facility] [place] [address] Liz Poole PA [facility] [place] [address] 06/10/2022 Office Visit Dermatology Laura Scherer MD [facility] [address] [place], [place] [address] (Wo rk) documented as of this encounter Visit Diagnoses Diagnosis Papillary thyroid carcinoma - Primary Malignant neoplasm of thyroid gland documented in this encounter Care Teams Flight Test Mechanic Relationship Specialty Start Date End Date Angela Holliday APRN PCP - General 01/25/13 04/15/[address] [place] [address] documented as of this encounter
--- OUTSIDE RECORDS SUMMARY | 2022-05-01 09:03 | XMS_ITS | Encounter Summary ---
:1945 Author Organization [place] [address] Care Team Providers Name Role Phone MiyaAngela STACIE Primary Care Provider Encounter Details Date Type Department Care Team Description 11/27/2013 Orders Only Urology at [facility] Blade Smith, Urinary retention [facility] (Primary Dx) [place] [address] UROLOGY DEPT [place], [place] 0[address] Social History Tobacco Use [...] Zulma Dolan MD [facility] er [address] [place], [place] [address] (Wo rk) 05/28/2022 Laboratory Appointment Lab 05/28/2022 Office Visit Cardiology Zulma Dolan MD [facility] [place] [address] Liz Poole PA [facility] [place] [address] 06/10/2022 Office Visit Dermatology Laura Scherer MD [facility] ER DR [address] [place], [place] 0[address] (Wo rk) documented as [...] Organization Address City/State/ZIP [place] [address] CERNER MILLENNIUM documented in this encounter Visit Diagnoses Diagnosis Urinary retention - Primary Retention of urine, unspecified documented in this encounter Care Teams Custom Clothier Relationship Specialty Start Date End Date Angela Holilday APRN PCP - General 01/25/13 04/15/[address] [place] [address] documented as of this encounter
--- OUTSIDE RECORDS SUMMARY | 2022-05-01 09:03 | XMS_ITS | Encounter Summary ---
:1945 Author Organization [facility] Address [facility] [place] [address] Care Team Providers Name Role Phone Lovely Vicente MD Primary Care Provider Reason for Visit Reason Comments Skin Check Encounter Details Date Type Department Care Team Description 11/05/2015 Office Visit Dermatology at Rigoberto Forman benign nevi; Abdelrahman HOOPER MD Lentigines; [address] [facility] History of melanoma; [place] [address] Skin exam for malignant neoplasm [phone] [facility] [place], [place] [address] Social History Tobacco Use Types [...] Drum (ACCU-CHEK COMPACT TEST) Strip by [facility]Non- Drug; [...] the presence of Dr. Garcia.: GINNY CHRISTIANSEN JITTERBUG OPERATOR and Judit Cruz, Clinical Scribe I performed the above scribed service and agree with the accuracy of the documentation in this encounter. Rigoberto Garcia MD Section of Dermatology [facility] documented in this encounter Plan of Treatment Upcoming Encounters Date Type Specialty Care Team Description 05/28/2022 Appointment Cardiology Zulma Dolan MD [facility] [address] [place], [place] [address] (Wo rk) 05/28/2022 Laboratory Appointment Lab 05/28/2022 Office Visit Cardiology Zulma Dolan MD [facility] [place] [address] Liz Poole PA [facility] [place] [address] 06/10/2022 Office Visit Dermatology Laura Scherer MD [facility] DR [address] [place], [place] [address] (Wo rk) documented as of this encounter Visit Diagnoses Diagnosis Multiple benign nevi Benign neoplasm of skin, site unspecifie d Lentigines Other dyschromia History of melanoma Personal history of malignant melanoma o f skin Skin exam for malignant neoplasm Screening for malignant neoplasm of the skin documented in this encounter Care Teams Stone Mason Relationship Specialty Start Date End Date Lovely Vicente MD PCP - General 04/16/15 [facility] [address] [place] [address] (work) documented as of this encounter
--- OUTSIDE RECORDS SUMMARY | 2022-05-01 09:03 | XMS_ITS | Encounter Summary ---
:1945 Author Organization [facility] [place] [address] Care Team Providers Name Role Phone Lovely Vicente MD Primary Care Provider Reason for Visit Reason Comments Medication Refill Encounter Details Date Type Department Care Team Description 05/10/2015 Refill Endocrinology at [facility] Rosalind Covarrubias, [facility] [place] [address] [facility] [phone] ENDOCRINOLOGY [place], [place] [address] (Wo rk) Social History Tobacco [...] MD [facility] er [address] [place], [place] [address] (Wo rk) 05/28/2022 Laboratory Appointment Lab 05/28/2022 Office Visit Cardiology Zulma Dolan MD [facility] [place] [address] Liz Poole PA [facility] [place] [address] 06/10/2022 Office Visit Dermatology Laura Scherer MD [facility] ER DR [address] [place], [place] [address] (Wo rk) documented as of this encounter Visit Diagnoses Not on filedocumented in this encounter Care Teams Cotton Ball Machine Tender Relationship Specialty Start Date End Date Lovely Vicente MD PCP - General 04/16/[address] [place] [address] documented as of this encounter
--- OUTSIDE RECORDS SUMMARY | 2022-05-01 09:03 | XMS_ITS | Encounter Summary ---
:1945 Author Organization [facility] [place] [address] Care Team Providers Name Role Phone MiyaLokeshAngela STACIE Primary Care Provider Encounter Details Date Type Department Care Team Description 01/16/2014 Hospital Encounter Gastroenterology at [facility] Nohemi Swann, [facility] [place] [address] [facility] [phone] [facility] [place], [place] [address] Social History Tobacco [...] you need to be checked. [facility] [phone] 8a-5p Same Day Endo [phone] 7a-8p Otherwise contact [phone] and ask to speak to the middle school art teacher health information clerk Follow up care is a shelton part [...] MD - 01/16/2014 9:49 AM EDT [facility] Operative Note Patient Name: Gregory Fatima : [id number] MR#: [id number] Case Date: 01/16/2014 Surgeon: Surgeon(s) and Role: * Nohemi Swann MD - Primary Preoperative diagnosis: 5 yr surv. Full procedure note is documented under the Procedure section of eDH. documented in this encounter Plan of Treatment Upcoming Encounters Date Type Specialty Care Team Description 05/28/2022 Appointment Cardiology Zulma Dolan MD [facility] [address] [place], [place] [address] (Wo rk) 05/28/2022 Laboratory Appointment Lab 05/28/2022 Office Visit Cardiology Zulma Dolan MD [facility] [place] [address] Liz Poole PA [facility] [place] [address] 06/10/2022 Office Visit Dermatology Laura Scherer MD [facility] [address] [place], [place] [address] (Wo rk) documented as of this encounter [...] Surgical Pathology Report (01/16/2014 9:53 AM EDT) [facility] Method Time Signature Surgical CERNER Pathology ? [facility] Report ? Provider: ?? NOHEMI SWANN ?Pt. Name: ?? MALICKEliseo RT, GREGORY E ? Acc #: ?[id number] ?Pt. MRN: ?[id number] ? Col Date: ?? 4 ? /Sex: [...] City/State/ZIP Code Phon e Number [place] [phone] LAB[address]ORY [address] RAKESH WALKER Specimen to [...] Organization Address City/State/[place] [address] [facility] Specimen to Pathology (surgical or [...] City/[facility]/[place] [address] CERNER MILLENNIUM COLONOSCOPY (01/16/2014 7:25 AM EDT) [facility] gist Method Time Signature COLONOSCOPY [facility] Endoscopy Patient Name: Gregory Fatima ? Procedure Date: 01/16/2014 7:25 AM ? N: [id number] ? Date of : 1945 ? Age: 68 ? Order #: [id number] ? Procedure: ? Colonoscopy Indications: ? High risk colon cancer surveillance : ? 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 dm on metformin with bs ~ 110 this ? am,s/p melanoma years ago, os a, ? goiter s/p surgery, [facility] Providers: ? Nohemi Swann MD, Blanca [...] Laterality 01/16/2014 7:25 AM EDT Angela Sotelo VACUUM BOTTLE ASSEMBLER GENERAL SURGICAL ORDERABLES Performing Organization Address City/State/ZIP [...] Routine documented in this encounter Care Teams Poly Area Supervisor Relationship Specialty Start Date End Date Angela Sotelo APRN PCP - General 01/25/13 04/15/[address] [place] [address] documented as of this encounter
--- OUTSIDE RECORDS SUMMARY | 2022-05-01 09:03 | XMS_ITS | Encounter Summary ---
:1945 Author Organization [facility] [place] [address] Care Team Providers Name Role Phone Miya Angela STACIE Primary Care Provider Encounter Details Date Type Department Care Team Description 04/24/2013 Telephone Urology at [facility] [place] [place] Zhen Bowman MD [facility] [address] UROLOGY DEPT [phone] [place], [place] [address] (Wo rk) Social History Tobacco [...] Zulma Dolan MD [facility] [place], [place] [address] (Wo rk) 05/28/2022 Laboratory Appointment Lab 05/28/2022 Office Visit Cardiology Zulma Dolan MD [facility] [place] [address] Liz Poole PA [facility] [place] [address] 06/10/2022 Office Visit Dermatology Laura Scherer MD [facility] [address] [place], [place] [address] (Wo rk) documented as of this encounter Visit Diagnoses Not on filedocumented in this encounter Care Teams Industry Consultant Relationship Specialty Start Date End Date Angela Holliday APRN PCP - General 01/25/13 04/15/[address] [place] [address] documented as of this encounter
--- OUTSIDE RECORDS SUMMARY | 2022-05-01 09:03 | XMS_ITS | Encounter Summary ---
:1945 Author Organization [facility] [place] [address] Care Team Providers Name Role Phone MiyaAngela STACIE Primary Care Provider Reason for Visit Reason Onset Date Comments Advice Only 03/31/2013 Encounter Details Date Type Department Care Team Description 03/31/2013 Telephone Urology at [facility] Daniele Trejo III, MD Advice Only [facility] [address] [place] [id number] [phone] (Wo rk) Social History Tobacco Use Types [...] Zulma Dolan MD [facility] [place], [place] [address] (Wo rk) 05/28/2022 Laboratory Appointment Lab 05/28/2022 Office Visit Cardiology Zulma Dolan MD [facility] [place] [address] Liz Poole PA [facility] [place] [address] 06/10/2022 Office Visit Dermatology Laura Scherer MD [facility] [address] [place], [place] [address] (Wo rk) documented as of this encounter Visit Diagnoses Not on filedocumented in this encounter Care Teams Court Security Officer Relationship Specialty Start Date End Date Angela Holliday APRN PCP - General 01/25/13 04/15/[address] [place] [address] documented as of this encounter
--- OUTSIDE RECORDS SUMMARY | 2022-05-01 09:03 | XMS_ITS | Encounter Summary ---
:1945 Author Organization [facility] [place] [address] Care Team Providers Name Role Phone Angela Holliday APRN Primary Care Provider Encounter Details Date Type Department Care Team Description 03/30/2013 Telephone General Surgery at [facility] Cliff Nevarez, [place] [address] Social History Tobacco Use Types Packs/Day [...] MD [facility] er [place], [place] [address] (Wo rk) 05/28/2022 Laboratory Appointment Lab 05/28/2022 Office Visit Cardiology Zulma Dolan MD [facility] [place] [address] Liz Poole PA [facility] [place] [address] 06/10/2022 Office Visit Dermatology Laura Scherer MD [facility] [address] [place], [place] [address] (Wo rk) documented as of this encounter Visit Diagnoses Not on filedocumented in this encounter Care Teams Paper Machine Backtender Relationship Specialty Start Date End Date Angela Holliday APRN PCP - General 01/25/13 04/15/[address] [place] [address] documented as of this encounter
--- OUTSIDE RECORDS SUMMARY | 2022-05-01 09:03 | XMS_ITS | Encounter Summary ---
:1945 Author Organization [facility] [place] [address] Care Team Providers Name Role Phone MiyaLokeshAngela STACIE Primary Care Provider Reason for Visit Reason Onset Date Comments Post-op Problem 04/05/2013 voiding trial Encounter Details Date Type Department Care Team Description 04/05/2013 Telephone Urology at [facility] Blade Smith, Post-op Problem [facility] (voiding trial) [place] [address] UROLOGY DEPT [place] [id number] (Wo rk) Social History Tobacco Use Types [...] Cardiology Zulma Dolan MD [facility] [address] [place], [place] [address] (Wo rk) 05/28/2022 Laboratory Appointment Lab 05/28/2022 Office Visit Cardiology Zulma Dolan MD [facility] [place] [address] Liz Poole PA [facility] [place] [address] 06/10/2022 Office Visit Dermatology Laura Scherer MD [facility] [address] [place], [place] [address] (Wo rk) documented as of this encounter Visit Diagnoses Not on filedocumented in this encounter Care Teams Grass Farm Laborer Relationship Specialty Start Date End Date Angela Holliday APRN PCP - General 01/25/13 04/15/[address] [place] [address] documented as of this encounter
--- OUTSIDE RECORDS SUMMARY | 2022-05-01 09:03 | XMS_ITS | Encounter Summary ---
:1945 Author Organization [facility] [place] [address] Care Team Providers Name Role Phone Angela Holliday APRN Primary Care Provider Reason for Visit Reason Onset Date Comments Other 03/30/2013 blood in catheter ba g Encounter Details Date Type Department Care Team Description 03/30/2013 Telephone General Surgery at [facility] Janneth Sharma, Other (blood in [facility] RN catheter bag) [place] [address] Social History Tobacco Use Types Packs/Day [...] Zulma Dolan MD [facility] [place], [place] 0[address] (Wo rk) 05/28/2022 Laboratory Appointment Lab 05/28/2022 Office Visit Cardiology Zulma Dolan MD [facility] [place] [address] Liz Poole PA [facility] [place] [address] 06/10/2022 Office Visit Dermatology Laura Scherer MD [facility] DR TEJA GR-DERMAT [place], [place] [address] (Wo rk) documented as of this encounter Visit Diagnoses Not on filedocumented in this encounter Care Teams Insert Molding Operator Relationship Specialty Start Date End Date Angela Holliday APRN PCP - General 01/25/13 04/15/[address] [place] [address] documented as of this encounter
--- OUTSIDE RECORDS SUMMARY | 2022-05-01 09:03 | XMS_ITS | Encounter Summary ---
:1945 [place] [address] Care Team Providers Name Role Phone Holley Hollidayica STACIE Primary Care Provider Encounter Details Date Type Department Care Team Description 03/28/2013 - [facility] (Primary 03/29/2013 Barbara Gomes MD Dx) [facility] DR Siddiqui [place] [address] [phone] Social History Tobacco Use Types Packs/Day Years [...] please call the General Surgery nurse at [phone], since this may mean that you need morecalcium. Follow-up Appointment: Will be scheduled with Dr. Mcknight in 6 weeks Date and time as well as any required labs will be mailed to you Please call [phone] to confirm date and time of your [...] by calcium supplementation. Phone number for questions: [phone] before 5 PM weekdays [phone] after 5 PM and on weekends/holidays Please follow up with Urology as per their recommendations for Bob removal AttachmentsThe following attachments cannot be sent through Care Everywhere. THYROIDECTOMY: WHAT TO EXPECT AT HOME (ANGUILLAN)URINARY CATHETER CARE: AFTER YOUR VISIT (ANGUILLAN)documented in this encounter Medications at Time of [...] Willams MD - 03/28/2013 3:43 PM EDT [facility] Operative Note Patient Name: Gregory Fatima : [id number] MR#: [id number] Case Date: 03/28/2013 Surgeon: Surgeon(s) and Role: [...] Operative Note Patient Name: Gregory Fatima : [id number] MR#: [id number] Case Date: 03/28/2013 Surgeon: Surgeon(s) and Role: [...] [facility] er Dr [place] [address] (Wo rk) 05/28/2022 Laboratory Appointment Lab 05/28/2022 Office Visit Cardiology Zulma Dolan MD [facility] [place] [address] Liz Poole PA [facility] [place] [address] 06/10/2022 Office Visit Dermatology Laura Scherer MD [facility] ER DR TEJA GR-DERMAT [place] [address] (Wo rk) documented as of this encounter [...] Organization Address City/State/[place] [address] CERNER MILLENNIUM (ABNORMAL) POCT [...] City/[facility]/[place] [address] CERNER MILLENNIUM (ABNORMAL) POCT [...] City/[facility]/ZIP Code Phon e Number [address] CERNER MILLENNIUM (ABNORMAL) POCT [...] City/[facility]/ZIP Code Phon e Number [address] CERNER MILLENNIUM (ABNORMAL) POCT [...] City/[facility]/ZIP Code Phon e Number [address] CERNER MILLENNIUM (ABNORMAL) POCT [...] City/[facility]/ZIP Code Phon e Number [address] CERNER MILLENNIUM (ABNORMAL) POCT [...] City/[facility]/ZIP Code Phon e Number [address] CERNER MILLENNIUM (ABNORMAL) POCT [...] City/[facility]/ZIP Code Phon e Number [address] [facility] Specimen to Pathology (surgical or derm) [...] City/[facility]/ZIP Code Phon e Number [address] [facility] Pathology Addendum Report (03/28/2013 12:03 PM EDT) Component Value Ref Test Analysis Performed At [facility] gist Range Method Time Signature Addendum CERNER Report ? [facility] ? Provider: ?? MESHA MCKNIGHT Pt. Name: ?? GREGORY FATIMA ? Acc #: ?[id number] ?Pt. MRN: ?[id number] ? Col Date: ?? 03/28/2013 ?/Sex: ?1945,(68 [...] City/State/[place] [address] [facility] Surgical Pathology Report (03/28/2013 12:03 PM EDT) Component Value Ref Test Analysis Performed At [facility] gist Range Method Time Signature Surgical [facility] Pathology ? [facility] Report ? Provider: ?? MESHA MCKNIGHT Pt. Name: ?? GREGORY FATIMA ? Acc #: ?[id number] ?Pt. MRN: ?[id number] ? Col Date: ?? 03/28/2013 ?/Sex: ?1945,(68 [...] Name: ?? GREGORY FATIMA ? Acc #: ?[id number] ?Pt. MRN: ?[id number] ? Col Date: ?? 03/28/2013 ?/Sex: ?1945,(68 years),Male ? Rec Date: ?? 03/28/2013 ?LOC: ?[facility] ? SURGICAL PATHOLOGY ? SECTIONS/PROCESSING: Stone Carriage Operator sections are subm itted. (R6) ? [...] City/State/[place] [address] CERNER MILLENNIUM Frozen Section Report (03/28/2013 12:03 PM EDT) Component Value Ref Test Analysis Performed At [facility] gist Range Method Time Signature Frozen CERNER Section ? [facility] Report ? Provider: ?? MESHA MCKNIGHT Pt. Name: ?? GREGORY FATIMA ? Acc #: ?[id number] ?Pt. MRN: ?[id number] ? Col Date: ?? 03/28/2013 ?/Sex: ?1945,(68 [...] City/[facility]/[place] [address] CERNER MILLENNIUM POCT Glucose [...] City/[facility]/ZIP Code Phon e Number [address] CERNER MILLENNIUM Specimen to [...] City/[facility]/[place] [address] CERNER MILLENNIUM Antibody screen (03/28/2013 9:37 AM EDT) Analysis Performed At Patho logist Time Signature Ab Screen Negative CERNER Interp MILLENNIUM Expires at [id number] CERNER 627 on: MILLENNIUM Specimen Anatomical Collection Method Collection Time Receive d Time (Source) Location / / Volume Laterality Blood specimen 03/28/2013 9:37 AM 013 9:37 (specimen) EDT AM EDT Resulting Agency Comment Spec In Lab Mesha Mcknight MD BLOOD BANK ORDERABLES Performing Organization Address City/[facility]/[place] [address] [facility] GRISELDAENNIUM ABO/Rh Typing (03/28/2013 9:37 AM EDT) athologist Signature ABORh Type O Pos [facility] Specimen Anatomical Collection Method Collection Time Receive d Time (Source) Location / / Volume Laterality Blood specimen 03/28/2013 9:37 AM 013 9:37 (specimen) EDT AM EDT Resulting Agency Comment Spec In Lab Mesha Mcknight MD BLOOD BANK ORDERABLES Performing Organization Address City/[facility]/ZIP Code Phon e Number [address] [facility] Differential, Automated (03/28/2013 9:34 AM [...] City/State/ZIP Code Phon e Number [place] [id number]OS[address]ITAL [address] CERNER MILLENNIUM (ABNORMAL) Basic [...] intervals supplied above were not validated at [facility]. Results from pediatri c patients should be [...] City/State/[place] [address] CERNER MILLENNIUM (ABNORMAL) CBC [...] MPV 9.3 9.0 - 12.0 CERNER fL [facility] Specimen Anatomical Collection Method Collection Time Receive d Time (Source) Location / / Volume Laterality Blood specimen 03/28/2013 9:34 AM 013 9:38 (specimen) EDT AM EDT Resulting Agency Comment Spec In Lab Mesha Mcknight MD HEMATOLOGY ORDERABLES Performing Organization Address City/[facility]/ZIP Code Phon e Number [address] [facility] POCT Glucose (03/28/2013 9:17 AM EDT) athologist Signature POC Glucose 108 60 - 199 CERNER mg/dL [facility] Comment: Supplemental ranges: <110 mg/dL before meals <200 mg/dL all other times of the day Specimen Anatomical Collection Method Collection Time Receive d Time (Source) Location / / Volume Laterality Blood specimen 03/28/2013 9:17 AM 013 9:17 (specimen) EDT AM EDT Mesha Mcknight MD POINT OF CARE TEST ORDERABLE S Performing Organization Address City/[facility]/ZIP Code Phon e Number [address] [facility] Specimen to Pathology (surgical or derm) (03/28/2013 8:55 AM EDT) Specimen Anatomical Collection Method Collection Time Receive d Time (Source) Location / / Volume Laterality AP Specimen 03/28/2013 8:55 AM 3 8:54 EDT AM EDT [facility]ative [facility] - 03/28/2013 8:55 AM E DT Specimen requisition ordered. ??Separate Pathology report to follow Mesha Mcknight MD PATHOLOGY/CYTOLOGY ORDERABLE S Performing Organization Address City/[facility]/ZIP Code Phon e Number [address] [facility] documented in this encounter Visit [...] 0900 (Given - Provider: Radha Yao [facility], RN) 2.5 mg, Oral, DAILY, First [...] override documented in this encounter Care Teams Bobbin Dumper Relationship Specialty Start Date End Date Angela Holliday APRN PCP - General 01/25/13 04/15/15 [address] [place] [address] documented as of this encounter
--- OUTSIDE RECORDS SUMMARY | 2022-05-01 09:03 | XMS_ITS | Encounter Summary ---
:1945 Author Organization [place] [address] Care Team Providers Name Role Phone Angela Holliday APRN Primary Care Provider Encounter Details Date Type Department Care Team Description 03/30/2013 Telephone General Surgery at [facility] Cliff Nevarez, [place] [address] Social History Tobacco Use Types Packs/Day [...] Dolan MD [facility] Dr [place], [place] [address] (Wo rk) 05/28/2022 Laboratory Appointment Lab 05/28/2022 Office Visit Cardiology Zulma Dolan MD [facility] [place] [address] Liz Poole PA [facility] [place] [address] 06/10/2022 Office Visit Dermatology Laura Scherer MD [facility] DR TEJA GR-DERMAT [place], [place] [address] (Wo rk) documented as of this encounter Visit Diagnoses Not on filedocumented in this encounter Care Teams Plant Controller Relationship Specialty Start Date End Date Angela Holliday APRN PCP - General 01/25/13 04/15/[address] [place] [address] documented as of this encounter
--- OUTSIDE RECORDS SUMMARY | 2022-05-01 09:03 | XMS_ITS | Encounter Summary ---
:1945 Author Organization [facility] [place] [address] Care Team Providers Name Role Phone Lovely Vicente MD Primary Care Provider Reason for Visit Reason Onset Date Comments Medication Refill 12/24/2016 Encounter Details Date Type Department Care Team Description 12/24/2016 Refill Endocrinology at [facility] Luz Stallings MD [facility] [place] [address] ENDOCRINOLOGY DEPT [phone] [place], [place] [address] (Wo rk) Social [...] [facility] er Dr [place] 0[address] (Wo rk) 05/28/2022 Laboratory Appointment Lab 05/28/2022 Office Visit Cardiology Zulma Dolan MD [facility] [place] [address] Liz Poole PA [facility] [place] [address] 06/10/2022 Office Visit Dermatology Laura Scherer MD [facility] DR TEJA GR-DERMAT [place], [place] [address] (Wo rk) documented as of this encounter Visit Diagnoses Not on filedocumented in this encounter Care Teams Joinery Setter Out Relationship Specialty Start Date End Date Lovely Vicente MD PCP - General 04/16/[address] [place], [place] [address] documented as of this encounter
--- OUTSIDE RECORDS SUMMARY | 2022-05-01 09:03 | XMS_ITS | Encounter Summary ---
:1945 Author Organization [facility] [place] [address] Care Team Providers Name Role Phone Lovely Vicente MD Primary Care Provider Encounter Details Date Type Department Care Team Description 09/03/2016 Laboratory Appointment Lab at [facility] Hx of [facility] [place] [phone] Social History Tobacco Use Types Packs/Day Years [...] [facility] er [address] [place] [address] (Wo rk) 05/28/2022 Laboratory Appointment Lab 05/28/2022 Office Visit Cardiology Zulma Dolan MD [facility] [place] [address] Poole PA [facility] [place] [address] 06/10/2022 Office Visit Dermatology Laura Scherer MD [facility] ER DR TEJA GR-DERMAT [place], [place] [address] (Wo rk) documented as of [...] <0.4 <=54.9 [facility] ng/mL [facility] LABORATORY Comment: Interpret with caution. [...] than those obtained with T4 withdrawal protocol ([place] BR et al. J Clin Endo Metab 1999;84:6356-2674). Assay performed using the DPC Immulite T [...] Address City/State/ZIP Code Phon e Number [address] TSH (09/03/2016 11:07 AM EST) P athologist Signature TSH 3.01 0.27 - 4.20 [facility] mcIU/mL [facility] LABORATORY Specimen Anatomical Collection Method Collection Time Receive d Time (Source) Location / / Volume Laterality Blood specimen 09/03/2016 11:07 7 (specimen) AM EST 11:22 AM EST Resulting Agency Comment Spec In Lab Luz Prescott MD CHEMISTRY ORDERABLES Performing Organization Address City/[facility]/ZIP [facility] [place] [address] documented in this encounter Visit Diagnoses Diagnosis Hx of papillary thyroid carcinoma Personal history of malignant neoplasm o f thyroid documented in this encounter Care Teams Porcelain Technician Relationship Specialty Start Date End Date Lovely Vicente MD PCP - General 04/16/15 [address] [place] [address] documented as of this encounter
--- OUTSIDE RECORDS SUMMARY | 2022-05-01 09:03 | XMS_ITS | Encounter Summary ---
:1945 Author Organization [facility] [place] [address] Care Team Providers Name Role Phone Angela Holliday APRN Primary Care Provider Encounter Details Date Type Department Care Team Description 04/05/2013 Office Visit Urology at [facility] [place] [address] Social History Tobacco Use Types Packs/Day Years Used Date Former Smoker Alcohol Use Standard Drinks/Week Comments No 0 (1 standard drink = 0.6 oz pure alcoho l) Sex Assigned at Date Recorded Not on file documented as of this encounter Plan of Treatment Upcoming Encounters Date Type Specialty Care Team Description 05/28/2022 Appointment Cardiology Zulma Dolan MD [facility] [place], [place] [address] (Wo rk) 05/28/2022 Laboratory Appointment Lab 05/28/2022 Office Visit Cardiology Zulma Dolan MD [facility] [place] [address] Liz Poole PA [facility] [place] [address] 06/10/2022 Office Visit Dermatology Laura Scherer MD [facility] DR [address]-DERMAT [place], [place] [address] (Wo rk) documented as of this encounter Visit Diagnoses Not on filedocumented in this encounter Care Teams Technician Support Engineer Relationship Specialty Start Date End Date Angela Holliday APRN PCP - General 01/25/13 04/15/[address] [place] [address] documented as of this encounter
--- OUTSIDE RECORDS SUMMARY | 2022-05-01 09:03 | XMS_ITS | Encounter Summary ---
:1945 Author Organization [facility] [place] [address] Care Team Providers Name Role Phone Lovely Vicente MD Primary Care Provider Encounter Details Date Type Department Care Team Description 11/28/2016 Telephone Dermatology at [facility] Rigoberto Garcia III, [address] [place] [address] [facility] [phone] [facility] SIMÓN-DERMAT [place], [place] [address] (Wo rk) Social History Tobacco [...] for scheduling with first available provider. Rigoberto Garica MD Section of Dermatology [facility] documented in this encounter Plan of Treatment Upcoming Encounters Date Type Specialty Care Team Description 05/28/2022 Appointment Cardiology Zulma Dolan MD [facility] [address] [place], [place] [address] (Wo rk) 05/28/2022 Laboratory Appointment Lab 05/28/2022 Office Visit Cardiology Zulma Dolan MD [facility] [place] [address] Liz Poole PA [facility] [place] [address] 06/10/2022 Office Visit Dermatology Laura Shcerer MD [facility] DR TEJA MRAIE-DERMAT [place], [place] [address] (Wo rk) documented as of this encounter Visit Diagnoses Not on filedocumented in this encounter Care Teams Roper Operator Relationship Specialty Start Date End Date Lovely Vicente MD PCP - General 04/16/[address] [place] [address] documented as of this encounter
--- OUTSIDE RECORDS SUMMARY | 2022-05-01 09:03 | XMS_ITS | Encounter Summary ---
:1945 Author Organization [facility] [place] [address] Care Team Providers Name Role Phone Angela Holliday APRN Primary Care Provider Reason for Visit Reason Comments Skin Check Encounter Details Date Type Department Care Team Description 07/31/2013 Follow-Up Dermatology at Rigoberto Forman eoplasm of unspecified nature of bone, soft tissue, and skin (Primary Dx); Abdelrahman HOOPER MD Seborrheic psoriasis- scalp and ingtergl uteal area; [address] [facility] Atypical nevus [place] [address] [address] [facility] [place], [place] [address] (Wo rk) Social History Tobacco [...] Cardiology Zulma Dolan MD [facility] [address] [place] [address] (Wo lissa) 05/28/2022 Laboratory Appointment Lab 05/28/2022 Office Visit Cardiology Zulma Dolan MD [facility] [place] [address] Liz Poole PA [facility] [place] [address] 06/10/2022 Office Visit Dermatology Laura Scherer MD [facility] DR TEJA GR-DERMAT [place], [place] [address] (Wo rk) Scheduled Orders Name [...] [facility] [place] [place] Report ? Provider: ?? RIGOBERTO ALBARRAN III Pt. Name: ?? GREGORY HOANG ?A ? Acc #: ?[id number] ? Pt. ? Col Date: ?? 07/31/2013 [...] negative controls. ??These ? IHC studies provide [facility] pathologist with adjunctive diagnostic [...] ?? GREGORY HOANG ?A ? Acc #: ?[id number] ? Pt. ? Col Date: ?? 07/31/2013 [...] PATHOLOGY/CYTOLOGY ORDERABLE S Performing Organization Address City/[facility]/ZIP Code Phon e Number [address] CERNER MILLENNIUM Specimen to [...] PATHOLOGY/CYTOLOGY ORDERABLE S Performing Organization Address City/[facility]/ZIP [place] [address] CERNER MILLENNIUM documented in this encounter Visit Diagnoses Diagnosis Neoplasm of unspecified nature of bone, soft tissue, and skin - Primary Seborrheic psoriasis- scalp and ingtergl uteal area Other psoriasis Atypical nevus of abdominal wall Benign neoplasm of skin of trunk, except scrotum documented in this encounter Care Teams Cuff Setter Overlock Relationship Specialty Start Date End Date Angela Holliday APRN PCP - General 01/25/13 04/15/[address] [place] [address] documented as of this encounter
--- OUTSIDE RECORDS SUMMARY | 2022-05-01 09:03 | XMS_ITS | Encounter Summary ---
:1945 Author Organization [facility] [place] [address] Care Team Providers Name Role Phone Angela Holliday APRN Primary Care Provider Reason for Visit Reason Comments Benign Prostatic Hypertrophy Encounter Details Date Type Department Care Team Description 11/28/2013 Follow-Up Urology at [facility] Blade Smith, Urinary retention (Primary D x); [facility] BPH (benign prostatic hyperplasia) [place] [address] UROLOGY DEPT [place], [place] [address] (Wo rk) Social History Tobacco [...] Dolan MD [facility] [place], [place] [address] (Wo rk) 05/28/2022 Laboratory Appointment Lab 05/28/2022 Office Visit Cardiology Zulma Dolan [place] [address] Liz Poole PA [facility] [place] [address] 06/10/2022 Office Visit Dermatology Laura Scherer MD [facility] DR TEJA GR-DERMAT [place], [place] [address] (Wo rk) documented as of [...] Address City/State/ZIP [place] [address] CERNER MILLENNIUM documented in this encounter Visit Diagnoses Diagnosis Urinary retention - Primary Retention of urine, unspecified BPH (benign prostatic hyperplasia) Unspecified hyperplasia of prostate with out urinary obstruction and other lower urinary tract symptoms (LUTS) documented in this encounter Care Teams Aircraft Time Clerk Relationship Specialty Start Date End Date Angeal Holliday APRN PCP - General 01/25/13 04/15/[address] [place] [address] documented as of this encounter
--- OUTSIDE RECORDS SUMMARY | 2022-05-01 09:03 | XMS_ITS | Encounter Summary ---
:1945 Author Organization [facility] [place] [address] Care Team Providers Name Role Phone Lovely Vicente MD Primary Care Provider Reason for Visit Reason Onset Date Comments Referral 10/30/2015 Urgent referral for mac on SIM[address]N [address] Encounter Details Date Type Department Care Team Description 10/30/2015 Telephone Ophthalmology at [facility] C Jayson Ruiz Referral (Urgent [facility] MD Grabiel referral for mac on [facility] DR [place]) [place] [address] OPHTHALMOLOGY DEPT. [phone] [place], [place] [address] (Wo rk) Social History Tobacco [...] Dolan MD [facility] [address] [place], [place] [address] (Wo rk) 05/28/2022 Laboratory Appointment Lab 05/28/2022 Office Visit Cardiology Zulma Dolan [place] [address] Liz Poole PA [facility] [place] [address] 06/10/2022 Office Visit Dermatology Laura Scherer MD [facility] DR TEJA GR-DERMAT [place], [place] [address] (Wo rk) documented as of this encounter Visit Diagnoses Not on filedocumented in this encounter Care Teams Awnings Mechanic Relationship Specialty Start Date End Date Lovely Vicente MD PCP - General 04/16/[address] [place], [place] [address] documented as of this encounter
--- OUTSIDE RECORDS SUMMARY | 2022-05-01 09:03 | XMS_ITS | Encounter Summary ---
:1945 Author Organization [facility] [place] [address] Care Team Providers Name Role Phone Lovely Vicente MD Primary Care Provider Encounter Details Date Type Department Care Team Description 09/03/2016 Office Visit Endocrinology at [facility] Maria Ines Stallings of [facility] MD [place] [address] [place] [address] ENDOCRINOLOGY DEPT [place], [place] [address] Social History Tobacco Use Types [...] to his magnesium pill. LUZ PRESCOTT MD Equipment Coordinatorpediatric physician assistant Section of Endocrinology [facility] [...] sonographic evidence of recurrence. LUZ PRESCOTT MD Equipment Coordinatorpediatric physician assistant Section of Endocrinology [facility] documented in this encounter Plan of Treatment Upcoming Encounters Date Type Specialty Care Team Description 05/28/2022 Appointment Cardiology Zulma Dolan MD [facility] [address] [place], [place] [address] (Wo rk) 05/28/2022 Laboratory Appointment Lab 05/28/2022 Office Visit Cardiology Zulma Dolan MD [facility] [place] [address] Liz Poole PA [facility] [place] [address] 06/10/2022 Office Visit Dermatology Laura Scherer MD [facility] DR TEJA GR-DERMAT [place], [place] [address] (Wo rk) documented as of this encounter Results Thyroglobulin (09/07/2017 2:41 PM EST) P athologist Signature Thyroglobulin 1.4 <=54.9 KATALINA RYAN ng/mL [facility] Comment: Thyroglobulin levels may be unreliable a nd falsely low in TgAb positive samples (TgAb <20 is consistent with TgAb negati vity). If Tg Antibodies are present an alternative Tg assay performed via mass spectrometry may be indicated. ??A clinical cutoff of <2.0 ng/ml should be used for athyrotic individuals. Pediatric reference ranges have not been established. Assay performed using the Neomobile Immulite T g immunometric assay (lowest detection [...] Prescott MD CHEMISTRY ORDERABLES Performing Organization Address City/[facility]/ZIP Code Phon e Number [address] TSH (09/07/2017 2:41 PM EST) athologist Signature TSH 3.93 0.27 - 4.20 [facility] mlU/ML [facility] Specimen Anatomical Collection Method Collection Time Receive d Time (Source) Location / / Volume Laterality Blood specimen 09/07/2017 2:41 PM 018 2:46 (specimen) EST PM EST Resulting Agency Comment Spec In Lab Luz Prescott MD CHEMISTRY ORDERABLES Performing Organization Address City/[facility] Phon e Number [address] Thyroglobulin (09/03/2016 11:07 AM EST) athologist Signature Thyroglobulin <0.4 <=54.9 [facility] ng/mL [facility] Comment: Interpret with caution. Tg [...] than those obtained with T4 withdrawal protocol ([place] BR et al. J Clin Endo Metab 1999;84:5569-4442). Assay performed using the DPC Immulite T [...] Prescott MD CHEMISTRY ORDERABLES Performing Organization Address City/[facility]/ZIP Code Phon e Number [address] TSH (09/03/2016 11:07 AM EST) P athologist Signature TSH 3.01 0.27 - 4.20 [facility] mcIU/mL [facility] Specimen Anatomical Collection Method Collection Time Receive d Time (Source) Location / / Volume Laterality Blood specimen 09/03/2016 11:07 7 (specimen) AM EST 11:22 AM EST Resulting Agency Comment Spec In Lab Luz Prescott MD CHEMISTRY ORDERABLES Performing Organization Address City/[facility]/[place] [address] documented in this encounter Visit Diagnoses Diagnosis Hx of papillary thyroid carcinoma Personal history of malignant neoplasm o f thyroid documented in this encounter Care Teams Rn Family Practice Relationship Specialty Start Date End Date Lovely Vicente MD PCP - General 04/16/[address] [place] [address] documented as of this encounter
--- OUTSIDE RECORDS SUMMARY | 2022-05-01 09:03 | XMS_ITS | Encounter Summary ---
:1945 [place] [address] Care Team Providers Name Role Phone Lovely Vicente MD Primary Care Provider Reason for Visit Reason Onset Date Comments Other 12/09/2016 RESULTS Encounter Details Date Type Department Care Team Description 12/09/2016 Telephone Dermatology at [facility] Halima Cadet MD Other (RESULTS) [address] [facility] [place] [address] [facility] [phone] [place], [place] [address] (Wo rk) Social History Tobacco [...] EDT Spoke with patient's , Kisha (personal commercial pest control representative). I advised her Don's pathology results [...] back. She can be reached back at [phone] documented in this encounter Plan of Treatment Upcoming Encounters Date Type Specialty Care Team Description 05/28/2022 Appointment Cardiology Zulma Dolan MD [facility] [place], [place] [address] (Wo rk) 05/28/2022 Laboratory Appointment Lab 05/28/2022 Office Visit Cardiology Zulma Dolan MD [facility] [place] [place] [address] Liz Poole PA [facility] [place] [address] 06/10/2022 Office Visit Dermatology Laura Scherer MD [facility] [address] [place], [place] [address] (Wo rk) documented as of this encounter Visit Diagnoses Not on filedocumented in this encounter Care Teams Tissue Rewinder Relationship Specialty Start Date End Date Lovely Vicente MD PCP - General 04/16/[address] [place] [address] documented as of this encounter
--- OUTSIDE RECORDS SUMMARY | 2022-05-01 09:03 | XMS_ITS | Encounter Summary ---
:1945 Author Organization [facility] [place] [address] Care Team Providers Name Role Phone MiyaAngela STACIE Primary Care Provider Reason for Visit Reason Comments Urinary Retention Encounter Details Date Type Department Care Team Description 05/16/2013 Follow-Up Urology at [facility] Blade Smith, Retention of urine [facility] (Primary Dx) [place] [address] UROLOGY DEPT [place] [address] (Wo rk) Social History Tobacco Use Types [...] Dolan MD [facility] Dr [place], [place] [address] (Wo rk) 05/28/2022 Laboratory Appointment Lab 05/28/2022 Office Visit Cardiology Zulma Dolan MD [facility] [place] [address] Liz Poole PA [facility] [place] [address] 06/10/2022 Office Visit Dermatology Laura Scherer MD [facility] DR TE[address] GR[address], [place] [address] (Wo rk) documented as of this encounter Visit Diagnoses Diagnosis 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
--- OUTSIDE RECORDS SUMMARY | 2022-05-01 09:03 | XMS_ITS | Encounter Summary ---
:1945 Author Organization [facility] [place] [address] Care Team Providers Name Role Phone Lovely Vicente MD Primary Care Provider Reason for Visit Reason Comments Nevus excision dysplastic nevus mi d upper abdomen Encounter Details Date Type Department Care Team Description 12/03/2016 Procedure visit Dermatology at Halima [facility] Dysplastic nevus of Road MD Adrián trunk [address] [facility] [address] [facility] [phone] RD-DERMATOLGY [place] [address] Social History Tobacco Use Types Packs/Day Years [...] Halima Cordero MD during the day at [phone] Nurse: Mira [phone] Amy After 5 PM and on weekends, please call the hospital number , and ask for the Regulatory Services Consultant transportation escort. documented in this encounter Progress Notes Halima Cordero MD - 12/10/2016 5:41 PM EDT Gwendolyn, Excision shows scar, there is no residual of the severely dysplastic nevus. Please notify patient and check on wound healing. Thank you, DTB Halima Cordero MD - 12/03/2016 3:00 PM EDT Images from the original note were not included. Dermatology Procedure note: Attending: Halima Cordero MD [place]: Mira James LPN Referring MD: Rigoberto Garcia [...] to call the clinic or the on-call brake repairer hydraulic over the weekend. ??? Name of Procedure? [...] Zulma Dolan MD [facility] [place], [place] [address] (Wo rk) 05/28/2022 Laboratory Appointment Lab 05/28/2022 Office Visit Cardiology Zulma Dolan MD [facility] [place] [address] Liz Poole PA [facility] [place] [address] 06/10/2022 Office Visit Dermatology Laura Scherer MD [facility] [address], [place] [address] (Wo rk) documented [...] Ref Test Analysis Performed At [facility] Method Time Signature Surgical [id number] ?Location: [facility] The signing pathologist has (i) examined the relevant preparation(s) for the MEMORIAL specimen(s) and (ii) rendered or confirmed the diagnosis(es) . HOSPITAL LABORATORY . 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 - Reparative changes consistent with previous operative site Electronically signed by: ??Alexanrdu Zambrano MD Verified: ??12/07/2016 ?Dermatopathologist, Bone & Soft Tissue Pathologist CLINICAL INFORMATION Specimen Submitted: A - Skin, Mid upper adomen, Excision, (1) Clinical History: 0.6 x 0.4 healing biopsy site Clinical Diagnosis: Dysplastic nevus, see previous pathology [id number] SPECIMEN PROCESSING A - Labeled/Fixative: Mid-upper abdomen, [...] Address City/State/[place] [address] Specimen to Pathology (NON-OR) [...] Address City/State/[place] [address] documented in this encounter Visit Diagnoses Diagnosis Dysplastic nevus of trunk Benign neoplasm of skin of trunk, except scrotum documented in this encounter Care Teams Sandwich Artist Relationship Specialty Start Date End Date Lovely Vicente MD PCP - General 04/16/[address] [place] [address] documented as of this encounter
--- OUTSIDE RECORDS SUMMARY | 2022-05-01 09:03 | XMS_ITS | Encounter Summary ---
:1945 Author Organization [facility] [place] [address] Care Team Providers Name Role Phone Lovely Vicente MD Primary Care Provider Encounter Details Date Type Department Care Team Description 07/10/2016 Telephone Dermatology at [facility] Rigoberto White III, [address] [place] [address] [facility] [phone] [facility], [place] [address] (Wo rk) Social History Tobacco [...] Dolan MD [facility] [address] [place], [place] [address] (Wo rk) 05/28/2022 Laboratory Appointment Lab 05/28/2022 Office Visit Cardiology Zulma Dolan MD [facility] [place] [address] Liz Poole PA [facility] [place] [address] 06/10/2022 Office Visit Dermatology Laura Scherer MD [facility] DR TEJA MARIE[place], [place] [address] (Wo rk) documented as of this encounter Visit Diagnoses Not on filedocumented in this encounter Care Teams Supervisor Scrap Preparation Relationship Specialty Start Date End Date Lovely Vicente MD PCP - General 04/16/15 [facility] [address] [place] [address] documented as of this encounter
--- OUTSIDE RECORDS SUMMARY | 2022-05-01 09:03 | XMS_ITS | Encounter Summary ---
:1945 Author Organization [facility] [place] [address] Care Team Providers Name Role Phone Lovely Vicente MD Primary Care Provider Reason for Visit Reason Comments Skin Check Encounter Details Date Type Department Care Team Description 04/16/2015 Follow-Up Dermatology at Rigoberto Forman x of melanoma of skin; Abdelrahman HOOPER MD Multiple benign nevi [address] [place] [address] [facility] [place], [place] [address] (Wo rk) Social History Tobacco [...] Diagnostic, Drum (ACCU-CHEK COMPACT TEST) Strip by [facility].(Non- Drug; Combo Route) [...] Cardiology Zulma Dolan MD [facility] [place], [place] [address] (Wo rk) 05/28/2022 Laboratory Appointment Lab 05/28/2022 Office Visit Cardiology Zulma Dolan MD [facility] [place] [address] Liz Poole PA [facility] [place] [address] 06/10/2022 Office Visit Dermatology Laura Scherer MD [facility] [address]MAT [place], [place] [address] (Wo rk) documented as of this encounter Visit Diagnoses Diagnosis Hx of melanoma of skin Personal history of malignant melanoma o f skin Multiple benign nevi Benign neoplasm of skin, site unspecifie d documented in this encounter Care Teams Radio Presenter Relationship Specialty Start Date End Date Lovely Vicente MD PCP - General 04/16/[address] [place] [address] [address] [place] [address] documented as of this encounter
--- OUTSIDE RECORDS SUMMARY | 2022-05-01 09:03 | XMS_ITS | Encounter Summary ---
:1945 Author Organization [facility] [place] [address] Care Team Providers Name Role Phone Angela Holliday APRN Primary Care Provider Encounter Details Date Type Department Care Team Description 04/30/2014 Orders Only Endocrinology at [facility] Albertina Palmer, Thyroid cancer [facility] Jorge Boyer MD (Primary Dx) [place] [address] [facility] [phone] CENTER ENDOCRINOLOGY DEPT [place], [place] [address] Social History Tobacco Use [...] MD [facility] er Dr [place], [place] [address] (Wo rk) 05/28/2022 Laboratory Appointment Lab 05/28/2022 Office Visit Cardiology Zulma Dolan MD [facility] [place] [address] Liz Poole PA [facility] [place] [address] 06/10/2022 Office Visit Dermatology Laura Scherer MD [facility] ER DR TEJA GR[address]DERMAT [place], [place] [address] (Wo rk) documented as of this encounter Visit Diagnoses Diagnosis Thyroid cancer - Primary Malignant neoplasm of thyroid gland documented in this encounter Care Teams Railroad Signal Technician Relationship Specialty Start Date End Date Angela Holliday APRN PCP - General 01/25/13 04/15/[address] [place] [address] documented as of this encounter
--- OUTSIDE RECORDS SUMMARY | 2022-05-01 09:03 | XMS_ITS | Encounter Summary ---
:1945 Author Organization [facility] [place] [address] Care Team Providers Name Role Phone Angela Sotelo APRN Primary Care Provider Encounter Details Date Type Department Care Team Description 01/16/2014 Surgery Gastroenterology at [facility] Nohemi Jaimes, COLONOSCOPY, [facility] Jorge mcnamara MD POLYPECTOMY, [place] [address] [facility] LESION BY SNARE ([facility] [phone] DR [place]int[place]) GASTROENTEROLOGY DEPT. [place], [place] [address] Social History Tobacco Use Types [...] you need to be checked. Wednesday-[facility] [phone] 8a-5p Same Day Endo [phone]-8p Otherwise contact [phone] and ask to speak to the director mission software configuration analyst Follow up care is a shelton [...] Operative Note Patient Name: Gregory Fatima : [id number] MR#: [id number] Case Date: 01/16/2014 Surgeon: Surgeon(s) and Role: * Nohemi Jaimes MD - Primary Preoperative diagnosis: 5 yr surv. Full procedure note is documented under the Procedure section of eDH. documented in this encounter Plan of Treatment Upcoming Encounters Date Type Specialty Care Team Description 05/28/2022 Appointment Cardiology Zulma Dolan MD [facility] [address] [place] [address] (Wo rk) 05/28/2022 Laboratory Appointment Lab 05/28/2022 Office Visit Cardiology Zulma Dolan MD [facility] [place] [address] Liz Poole PA [facility] [place] [address] 06/10/2022 Office Visit Dermatology Laura Scherer MD [facility] DR [address] [place] [address] (Wo rk) documented as of this encounter [...] Surgical Pathology Report (01/16/2014 9:53 AM EDT) [facility] Method Time Signature Surgical CERNER Pathology ? [facility] Report ? Provider: ?? SHREE, NOHEMI Gonzalez ?Pt. Name: ?? MALICKA RT, GREGORY E ? Acc #: ?[id number] ?Pt. MRN: ?[id number] ? Col Date: ?? 4 ? /Sex: [...] Organization Address City/State/ZIP Code Phon e Number [place] [phone] HOSPITAL LAB[address]ORY [address] RAKESH WALKER Specimen to [...] Address City/[facility]/ZIP Code [place] [address] CERNER MILLENNIUM Specimen to [...] PATHOLOGY/CYTOLOGY ORDERABLE S Performing Organization Address [facility] [place] [address] CERNER MILLENNIUM COLONOSCOPY (01/16/2014 7:25 AM EDT) [facility] gist Method Time Signature COLONOSCOPY [facility] PROVATION Endoscopy Patient Name: Gregory Fatima ? Procedure Date: 01/16/2014 7:25 AM ? N: [id number] ? Date of : 1945 ? Age: 68 ? Order #: [id number] ? Procedure: ? Colonoscopy Indications: ? High [...] Laterality 01/16/2014 7:25 AM EDT Angela Sotelo [facility] ORDERABLES Performing Organization Address City/State/ZIP [...] Routine documented in this encounter Care Teams Sap Functional Analyst Relationship Specialty Start Date End Date Angela Sotelo APRN PCP - General 01/25/13 04/15/15 [address] [place] [address] documented as of this encounter
--- OUTSIDE RECORDS SUMMARY | 2022-05-01 09:03 | XMS_ITS | Encounter Summary ---
:1945 Author Organization [facility] [place] [address] Care Team Providers Name Role Phone Lovely Vicente MD Primary Care Provider Reason for Visit Reason Onset Date Comments Pre Procedure Call 12/02/2016 Encounter Details Date Type Department Care Team Description 12/02/2016 Telephone Dermatology at [facility] Mira James LPN Pre Procedure Call [address] [place] [address] Social History Tobacco Use Types Packs/Day [...] Dolan MD [facility] [place], [place] [address] (Wo lissa) 05/28/2022 Laboratory Appointment Lab 05/28/2022 Office Visit Cardiology Zulma Dolan MD [facility] [place] [address] Liz Poole PA [facility] [place] [address] 06/10/2022 Office Visit Dermatology Laura Scherer MD [facility] DR [address] GR-[place], [place] [address] (Wo rk) documented as of this encounter Visit Diagnoses Not on filedocumented in this encounter Care Teams Tension Machine Operator Relationship Specialty Start Date End Date Lovely Vicente MD PCP - General 04/16/[address] [place] [address] documented as of this encounter
--- OUTSIDE RECORDS SUMMARY | 2022-05-01 09:03 | XMS_ITS | Encounter Summary ---
:1945 Author Organization [facility] [place] [address] Care Team Providers Name Role Phone Lovely Vicente MD Primary Care Provider Reason for Visit Reason Comments Skin Lesion Encounter Details Date Type Department Care Team Description 11/24/2016 [facility] uncertain behavior of skin; Road IIIMD Pigmented skin lesion of uncertain natur e; [address] [facility] [place] of [place] [address] [facility] SIMÓN-DERMATOLGY [place], [place] [address] Social History Tobacco Use Types [...] or concerns, please call the office at [phone]. If it is after 5PM, or a holiday or weekend, please call [phone] and ask for the Huc on-call. documented in this encounter Progress Notes [...] 71 y.o. year old male.Established patient of [employer]. Last seen 06/05/16. Here today for new [...] MD [facility] er [place] [address] (Wo rk) 05/28/2022 Laboratory Appointment Lab 05/28/2022 Office Visit Cardiology Zulma Dolan MD [facility] [place] [address] Liz Poole PA [facility] [place] [address] 06/10/2022 Office Visit Dermatology Laura Scherer MD [facility] ER DR [address]-DERMAT [place], [place] [address] (Wo rk) documented as of [...] Component Value Ref Test Analysis Performed At [facility] gist Range Method Time Signature Surgical [id number] ?Location: [facility] Report The signing [...] Organization Address City/State/[place] [address] Specimen to Pathology (NON-OR) [...] Organization Address City/State/[place] [address] documented in this encounter Visit Diagnoses Diagnosis Neoplasm of uncertain behavior of skin Pigmented skin lesion of uncertain natur e History of melanoma Personal history of malignant melanoma o f skin documented in this encounter Care Teams Credit Rating Checker Relationship Specialty Start Date End Date Lovely Vicente MD PCP - General 04/16/[address] [place] [address] documented as of this encounter
--- OUTSIDE RECORDS SUMMARY | 2022-05-01 09:03 | XMS_ITS | Encounter Summary ---
:1945 Author Organization [facility] [place] [address] Care Team Providers Name Role Phone Angela Holliday APRN Primary Care Provider Reason for Visit Reason Comments Other Encounter Details Date Type Department Care Team Description 08/01/2013 Telephone Dermatology at [facility] Rigoberto Garcia III, [address] [place] [address] [facility] [phone] TEJA MARIE-DERMAT [place], [place] [address] (Wo rk) Social History Tobacco [...] them. Component Value Surgical Pathology Final Report [facility] Provider: RIGOBERTO GARCIA III Pt. Name: DON HOANG Acc #: [id number] Pt. Col Date: 07/31/2013 /Sex: 1945,(68 years),Male Rec Date: 07/31/2013 LOC: [facility] SURGICAL PATHOLOGY ---Pathologic Diagnosis--- Skin, right abdomen, shave biopsy: Lentiginous compound nevus with moderate atypia of the intraepidermal component, extending to the peripheral specimen edge, ulcerated, associated with spongiosis and superficial perivascular lymphoeosinophilic infiltrate (see Comment). CR-0 08/01/13 BJM 08/01/13 Verified by: Ian STRANGE, PhD, [facility] Dermatopathologist (Electronic Signature) The attending pathologist [...] Cardiology Zulma Dolan MD [facility] [place], [place] [address] (Wo lissa) 05/28/2022 Laboratory Appointment Lab 05/28/2022 Office Visit Cardiology Zulma Dolan MD [facility] [place] [address] Liz Poole PA [facility] [address] 06/10/2022 Office Visit Dermatology Laura Scherer MD [facility] DR TEJA MARIE-DERMAT [place], [place] [address] (Wo rk) documented as of this encounter Visit Diagnoses Not on filedocumented in this encounter Care Teams Entry Level Project Engineer Relationship Specialty Start Date End Date Angela Holliday APRN PCP - General 01/25/13 04/15/[address] [place] [address] documented as of this encounter
--- OUTSIDE RECORDS SUMMARY | 2022-05-01 09:03 | XMS_ITS | Encounter Summary ---
:1945 Author Organization [facility] [place] [address] Care Team Providers Name Role Phone Angela Holliday STACIE Primary Care Provider Encounter Details Date Type Department Care Team Description 04/04/2013 Telephone Urology at [facility] Parker [place] [address] UROLOGY DEPT [phone] [place], [place] [address] (Wo rk) Social History Tobacco [...] Dolan MD [facility] Dr [place], [place] [address] (Wo rk) 05/28/2022 Laboratory Appointment Lab 05/28/2022 Office Visit Cardiology Zulma Dolan MD [facility] [place] [address] Liz Poole PA [facility] [place] [address] 06/10/2022 Office Visit Dermatology Laura Scherer MD [facility] DR TEJA GR-DERMAT [place], [place] [address] (Wo rk) documented as of this encounter Visit Diagnoses Not on filedocumented in this encounter Care Teams Alloy Weigher Relationship Specialty Start Date End Date Angela Holliday APRN PCP - General 01/25/13 04/15/[address] [place] [address] documented as of this encounter
--- OUTSIDE RECORDS SUMMARY | 2022-05-01 09:03 | XMS_ITS | Encounter Summary ---
:1945 Author Organization [facility] [place] [address] Care Team Providers Name Role Phone Lovely Vicente MD Primary Care Provider Reason for Visit Reason Onset Date Comments Medication Refill 06/19/2016 Encounter Details Date Type Department Care Team Description 06/19/2016 Refill Endocrinology at [facility] Luz Stallings MD [facility] [place] [address] ENDOCRINOLOGY DEPT [phone] [place], [place] [address] (Wo rk) Social History Tobacco [...] MD [facility] er [address] [place] [address] (Wo rk) 05/28/2022 Laboratory Appointment Lab 05/28/2022 Office Visit Cardiology Zulma Dolan MD [facility] [place] [address] Liz Poole PA [facility] [place] [address] 06/10/2022 Office Visit Dermatology Laura Scherer MD [facility] DR TEJA GR-DERMAT [place], [place] [address] (Wo rk) documented as of this encounter Visit Diagnoses Not on filedocumented in this encounter Care Teams Airdox Fitter Relationship Specialty Start Date End Date Lovely Vicente MD PCP - General 04/16/[address] [place], [place] [address] documented as of this encounter
--- OUTSIDE RECORDS SUMMARY | 2022-05-01 09:03 | XMS_ITS | Encounter Summary ---
:1945 Author Organization [facility] [place] [address] Care Team Providers Name Role Phone Som Holliday APRN Primary Care Provider Encounter Details Date Type Department Care Team Description 04/11/2014 Procedure visit Gastroenterology at [facility] Esophageal reflux [facility] Luz Winchester RN (Primary Dx) [place] [address] Social History Tobacco Use Types Packs/Day Years Used Date Former Smoker Alcohol Use Standard Drinks/Week Comments No 0 (1 standard drink = 0.6 oz pure alcoho l) Sex Assigned at Date Recorded Not on file documented as of this encounter Progress Notes Adalid Can MD - 04/13/2014 3:43 PM EDT ESOPHAGEAL MANOMETRY Don Fatima Male, 69 yrs, 1945 PCP: SOM HOLLIDAY GLOBAL ACCOUNT MANAGER: NONE STUDY DATE: 04/11/14 PROVIDER: [place] ([id number]) INDICATION Reflux; preoperative evaluation. METHODS Stationary esophageal manometry was performed with the Urban Matrix esophageal motility system utilizing the Polygram software [...] of the esophagus. Adalid Can, PhD, MD pedigree researcher, [facility] Section of Gastroenterology and Hepatology [facility] [place] [address] V: [phone] F: [phone] [facility]gabriela CC/EC: PCP - staff msg copy 04/13/14 Henrique Taylor MD - fax copy 04/13/14 Luz Keller RN - 04/11/2014 8:14 AM EDT Esophageal manometry performed without difficulty and Was well tolerated. documented in this encounter Plan of Treatment Upcoming Encounters Date Type Specialty Care Team Description 05/28/2022 Appointment Cardiology Zulma Dolan MD [facility] [place], [place] [address] (Wo rk) 05/28/2022 Laboratory Appointment Lab 05/28/2022 Office Visit Cardiology Zulma Dolan MD [facility] [place] [address] Liz Poole PA [facility] [place] [address] 06/10/2022 Office Visit Dermatology Laura Scherer MD [facility] DR TEJA GR-DERMAT [place], [place] [address] (Wo rk) documented as of this encounter Visit Diagnoses Diagnosis Esophageal reflux - Primary documented in this encounter Care Teams Interlacer Relationship Specialty Start Date End Date Som Holliday APRN PCP - General 01/25/13 04/15/[address] [place] [place] [address] documented as of this encounter
--- OUTSIDE RECORDS SUMMARY | 2022-05-01 09:04 | XMS_ITS | Encounter Summary ---
:1945 Author Organization [facility] [place] [address] Care Team Providers Name Role Phone Adi Costello MD Primary Care Provider Reason for Visit Reason Comments Annual Exam ckeck his groin and melanoma follow-up Encounter Details Date Type Department Care Team Description 11/21/2010 Follow-Up Dermatology Arik Tipton Melanoma (Primary Dx) [facility] MD Jorge [place] [id number] DERMATOLOGY DEPT . 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 His only complaints are leg cramps, skin [...] changes: Arik Tipton MD Section of Dermatology [facility] documented in this encounter Plan of Treatment Upcoming Encounters Date Type Specialty Care Team Description 05/28/2022 Appointment Cardiology Zulma Dolan MD [facility] [address] [place], [place] [address] (Wo rk) 05/28/2022 Laboratory Appointment Lab 05/28/2022 Office Visit Cardiology Zulma Dolan MD [facility] [place] [address] Liz Poole PA [facility] [place] [address] 06/10/2022 Office Visit Dermatology Laura Scherer MD [facility] DR TEJA GR-DERMAT OLOGY [place], [place] [address] (Wo rk) documented as of this encounter Visit Diagnoses Diagnosis Melanoma - Primary Melanoma of skin, site unspecified documented in this encounter Care Teams Estate And Trust Tax Principal Relationship Specialty Start Date End Date Adi Costello MD PCP - General 06/17/10 09/21/11 [address] [place] [address] documented as of this encounter
--- OUTSIDE RECORDS SUMMARY | 2022-05-01 09:04 | XMS_ITS | Encounter Summary ---
:1945 Author Organization [facility] [place] [address] Care Team Providers Name Role Phone Angela Holliday APRN Primary Care Provider Encounter Details Date Type Department Care Team Description 03/28/2013 Surgery Main Operating Room Mesha Mcknight, THYROIDECTOMY, T[facility] 15.04[facility] [place]idd[place] [address] [place] [address] [phone] (Wo rk) Social History Tobacco Use Types [...] please call the General Surgery nurse at [phone], since this may mean that you need morecalcium. Follow-up Appointment: Will be scheduled with Dr. Mcknight in 6 weeks Date and time as well as any required labs will be mailed to you Please call [phone] to confirm date and time of your [...] by calcium supplementation. Phone number for questions: [phone] before 5 PM weekdays [phone] after 5 PM and on weekends/holidays Please follow up with Urology as per their recommendations for Bob removal AttachmentsThe following attachments cannot be sent through Care Everywhere. THYROIDECTOMY: WHAT TO EXPECT AT HOME (GEORGIAN)URINARY CATHETER CARE: AFTER YOUR VISIT (GEORGIAN)documented in this encounter Medications at Time of [...] is a 68 y.o. male presents to [facility] today for total thyroidectomy. See full [...] Operative Note Patient Name: Gregory Fatima : [id number] MR#: [id number] Case Date: 03/28/2013 Surgeon: Surgeon(s) and Role: [...] patient was extubated and taken to the [facility] in stable condition. At the end [...] Operative Note Patient Name: Gregory Fatima : [id number] MR#: [id number] Case Date: 03/28/2013 Surgeon: Surgeon(s) and Role: [...] MD [facility] er Dr [place] [address] (Wo rk) 05/28/2022 Laboratory Appointment Lab 05/28/2022 Office Visit Cardiology Zulma Dolan MD [facility] [place] [address] Liz Poole PA [facility] [place] [address] 06/10/2022 Office Visit Dermatology Laura Scherer MD [facility] ER DR TEJA GR-DERMAT [place] [address] (Wo rk) documented as of this encounter [...] Organization Address City/State/[place] [address] CERNER MILLENNIUM (ABNORMAL) POCT [...] City/[facility]/[place] [address] CERNER MILLENNIUM (ABNORMAL) POCT [...] City/[facility]/ZIP Code Phon e Number [address] CERNER MILLENNIUM (ABNORMAL) POCT [...] City/[facility]/ZIP Code Phon e Number [address] CERNER MILLENNIUM (ABNORMAL) POCT [...] City/[facility]/ZIP Code Phon e Number [address] CERNER MILLENNIUM (ABNORMAL) POCT [...] City/[facility]/ZIP Code Phon e Number [address] CERNER MILLENNIUM (ABNORMAL) POCT [...] City/[facility]/ZIP Code Phon e Number [address] CERNER MILLENNIUM (ABNORMAL) POCT [...] City/[facility]/ZIP Code Phon e Number [address] [facility] Specimen to Pathology (surgical or derm) (03/28/2013 [...] City/[facility]/ZIP Code Phon e Number [address] [facility] Pathology Addendum Report (03/28/2013 12:03 PM EDT) Component Value Ref Test Analysis Performed At [facility] gist Range Method Time Signature Addendum CERNER Report ? [facility] ? Provider: ?? MESHA MCKNIGHT Pt. Name: ?? GREGORY FATIMA ? Acc #: ?[id number] ?Pt. MRN: ?[id number] ? Col Date: ?? 03/28/2013 ?/Sex: ?1945,(68 [...] Address City/State/[place] [address] [facility] Surgical Pathology Report (03/28/2013 12:03 PM EDT) Component Value Ref Test Analysis Performed At [facility] gist Range Method Time Signature Surgical [facility] Pathology ? [facility] Report ? Provider: ?? MESHA MCKNIGHT Pt. Name: ?? GREGORY FATIMA ? Acc #: ?[id number] ?Pt. MRN: ?[id number] ? Col Date: ?? 03/28/2013 ?/Sex: ?1945,(68 [...] areas of hemorrhage and ? calcifications. ? [facility] ? Provider: ?? MESHA MCKNIGHT Pt. Name: ?? GREGORY FATIMA ? Acc #: ?[id number] ?Pt. MRN: ?[id number] ? Col Date: ?? 03/28/2013 ?/Sex: ?1945,(68 years),Male ? Rec Date: ?? 03/28/2013 ?LOC: ?[facility] ? SURGICAL PATHOLOGY ? SECTIONS/PROCESSING: Rn Immunology sections are subm itted. (R6) ? B [...] Address City/State/[place] [address] CERNER MILLENNIUM Frozen Section Report (03/28/2013 12:03 PM EDT) Component Value Ref Test Analysis Performed At [facility] gist Range Method Time Signature Frozen CERNER Section ? [facility] Report ? Provider: ?? MESHA MCKNIGHT Pt. Name: ?? GREGORY FATIMA ? Acc #: ?[id number] ?Pt. MRN: ?[id number] ? Col Date: ?? 03/28/2013 ?/Sex: ?1945,(68 [...] City/[facility]/[place] [address] CERNER MILLENNIUM POCT Glucose [...] City/[facility]/ZIP Code Phon e Number [address] CERNER MILLENNIUM Specimen to [...] City/[facility]/[place] [address] CERNER MILLENNIUM Antibody screen (03/28/2013 9:37 AM EDT) Analysis Performed At Patho logist Time Signature Ab Screen Negative CERNER Interp MILLENNIUM Expires at [id number] CERNER 664 on: MILLENNIUM Specimen Anatomical Collection Method Collection Time Receive d Time (Source) Location / / Volume Laterality Blood specimen 03/28/2013 9:37 AM 013 9:37 (specimen) EDT AM EDT Resulting Agency Comment Spec In Lab Mesha Mcknight MD BLOOD BANK ORDERABLES Performing Organization Address City/[facility]/[place] [address] [facility] GRISELDAENNIUM ABO/Rh Typing (03/28/2013 9:37 AM EDT) athologist Signature ABORh Type O Pos [facility] Specimen Anatomical Collection Method Collection Time Receive d Time (Source) Location / / Volume Laterality Blood specimen 03/28/2013 9:37 AM 013 9:37 (specimen) EDT AM EDT Resulting Agency Comment Spec In Lab Mesha Mcknight MD BLOOD BANK ORDERABLES Performing Organization Address City/[facility]/ZIP Code Phon e Number [address] [facility] Differential, Automated (03/28/2013 9:34 AM [...] City/State/ZIP Code Phon e Number [place] [id number]OSPITAL [address] CERNER MILLENNIUM (ABNORMAL) Basic [...] Address City/State/[place] [address] CERNER MILLENNIUM (ABNORMAL) CBC [...] MPV 9.3 9.0 - 12.0 CERNER fL [facility] Specimen Anatomical Collection Method Collection Time Receive d Time (Source) Location / / Volume Laterality Blood specimen 03/28/2013 9:34 AM 013 9:38 (specimen) EDT AM EDT Resulting Agency Comment Spec In Lab Mesha Mcknight MD HEMATOLOGY ORDERABLES Performing Organization Address City/[facility]/ZIP Code Phon e Number [address] [facility] POCT Glucose (03/28/2013 9:17 AM [...] City/[facility]/ZIP Code Phon e Number [address] [facility] Specimen to Pathology (surgical or derm) (03/28/2013 8:55 AM EDT) Specimen Anatomical Collection Method Collection Time Receive d Time (Source) Location / / Volume Laterality AP Specimen 03/28/2013 8:55 AM 3 8:54 EDT AM EDT Narrative [facility] GR[facility] - 03/28/2013 8:55 AM E DT Specimen requisition ordered. ??Separate Pathology report to follow Mesha Mcknight MD PATHOLOGY/CYTOLOGY ORDERABLE S Performing Organization Address City/[facility]/ZIP Code Phon e Number [address] RAKESH WALKER documented in [...] 0900 (Given - Provider: Radha Yao [facility], [facility]) 2.5 mg, Oral, [...] override documented in this encounter Care Teams Percussion Teacher Relationship Specialty Start Date End Date Angela Holliday APRN PCP - General 01/25/13 04/15/15 [address] [place] [address] documented as of this encounter
--- OUTSIDE RECORDS SUMMARY | 2022-05-01 09:04 | XMS_ITS | Encounter Summary ---
:1945 Author Organization [facility] [address] Care Team Providers Name Role Phone Angela Holliday APRN Primary Care Provider Encounter Details Date Type Department Care Team Description 01/25/2013 Clinical [place] [address] Social History Tobacco Use Types Packs/Day [...] Zulma Dolan MD [facility] [address] [place], [place] [address] (Wo rk) 05/28/2022 Laboratory Appointment Lab 05/28/2022 Office Visit Cardiology Zulma Dolan MD [facility] [place] [address] Liz Poole PA [facility] [place] [address] 06/10/2022 Office Visit Dermatology Laura Scherer MD [facility] DR TEJA GR-DERMAT [place], [place] [address] (Wo rk) documented as of this encounter Visit Diagnoses Not on filedocumented in this encounter Care Teams Package Handler Relationship Specialty Start Date End Date Angela Holliday APRN PCP - General 01/25/13 04/15/[address] [place] [address] documented as of this encounter
--- OUTSIDE RECORDS SUMMARY | 2022-05-01 09:04 | XMS_ITS | Encounter Summary ---
:1945 Author Organization [facility] [place] [address] Care Team Providers Name Role Phone Brody Berrios MD Primary Care Provider Reason for Visit Reason Comments Annual Exam Encounter Details Date Type Department Care Team Description 09/22/2011 Follow-Up Dermatology Arik Tipton Psoriasis (Primary Dx); [facility] MD Jorge Personal history of other malignant neop lasm of skin Drive [place] [id number] DERMATOLOGY DEPT . 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 His only complaints tail bone and scalp [...] Tipton MD Section of Dermatology [facility] documented in this encounter Plan of Treatment Upcoming Encounters Date Type Specialty Care Team Description 05/28/2022 Appointment Cardiology Zulma Dolan MD [facility] Dr [place], [place] [address] (Wo rk) 05/28/2022 Laboratory Appointment Lab 05/28/2022 Office Visit Cardiology Zulma Dolan MD [facility] [place] [address] Liz Poole PA [facility] [place] [address] 06/10/2022 Office Visit Dermatology Laura Scherer MD [facility] DR [address]-DERMAT OLOG[place], [place] [address] (Wo rk) documented as of this encounter Visit Diagnoses Diagnosis Psoriasis - Primary Other psoriasis Personal history of other malignant neop lasm of skin documented in this encounter Care Teams Steel Erector Relationship Specialty Start Date End Date Brody Berrios MD PCP - General 09/22/11 10/03/[address] [place] [address] documented as of this encounter
--- OUTSIDE RECORDS SUMMARY | 2022-05-01 09:04 | XMS_ITS | Encounter Summary ---
:1945 Author Organization [place] [address] Care Team Providers Name Role Phone Angela Holliday APRN Primary Care Provider Encounter Details Date Type Department Care Team Description 03/15/2013 Telephone General Surgery at [facility] [place] [address], [place] [address] Social History Tobacco Use Types Packs/Day [...] Zulma Dolan MD [facility] [place], [place] [address] (Wo rk) 05/28/2022 Laboratory Appointment Lab 05/28/2022 Office Visit Cardiology Zulma Dolan MD [facility] [place] [address] Liz Poole PA [facility] [place] [address] 06/10/2022 Office Visit Dermatology Laura Scherer MD [facility] DR TEJA GR-DERMAT [place], [place] [address] (Wo rk) documented as of this encounter Visit Diagnoses Not on filedocumented in this encounter Care Teams Steam Locomotive Firer/Fireman Relationship Specialty Start Date End Date Angela Holliday APRN PCP - General 01/25/13 04/15/[address] [place] [address] documented as of this encounter
--- OUTSIDE RECORDS SUMMARY | 2022-05-01 09:04 | XMS_ITS | Encounter Summary ---
:1945 Author Organization [facility] [place] [address] Care Team Providers Name Role Phone NeilSom conner STACIE Primary Care Provider Reason for Visit Reason Comments Establish Care OBST GOITER Encounter Details Date Type Department Care Team Description 01/25/2013 Office Visit General Surgery at Manny Mcknight er colloid, toxic, [facility] MD Eliseo nodular (Primary Dx) [facility] [place] GENERAL SURGERY [address] [place], [place] [address] [phone] Social History Tobacco Use Types Packs/Day Years [...] the thyroid gland were obtained using a SonoSiDeepFlex MicroMaxx and an HFL38/13-6 broadband linear array [...] agrees to proceed. Will sign in through [facility]. Consent is signed. Send copy to Dr. SOM HOLLIDAY APRN and Elijah Elias MD. documented in this encounter Plan of Treatment Upcoming Encounters Date Type Specialty Care Team Description 05/28/2022 Appointment Cardiology Zulma Dolan MD [facility] Dr [place] [address] (Wo rk) 05/28/2022 Laboratory Appointment Lab 05/28/2022 Office Visit Cardiology Zulma Dolan MD [facility] [place] [address] Liz Poole PA [facility] [place] [address] 06/10/2022 Office Visit Dermatology Laura Scherer MD [facility] DR TEJA GR-DERMAT [place], [place] [address] (Wo rk) documented as of [...] 406 ms MUSE SYSTEM (Bezet) Calculated P [place] 52 degrees MUSE SYSTEM Calculated R [place] 0 degrees MUSE SYSTEM Calculated T [place] 40 degrees MUSE SYSTEM INTERPRETATION Normal [...] storm documented in this encounter Care Teams Director Of Sales Relationship Specialty Start Date End Date Som Holliday APRN PCP - General 01/25/13 04/15/[address] [place] [address] documented as of this encounter
--- OUTSIDE RECORDS SUMMARY | 2022-05-01 09:04 | XMS_ITS | Encounter Summary ---
:1945 Author Organization [facility] [place] [address] Care Team Providers Name Role Phone Angela Holliday APRN Primary Care Provider Reason for Referral Surgical (Routine) - Closed Specialty Diagnoses / Procedures Referred By Contact Refer red To Contact General Surgery Diagnoses Elijah Villagomez MD Colacchio, Thomas A, MD [address] [place] [address] [place] [address] [place] [address] Phone: Fax: Referral ID Status Reason Start Date Expiration Date Visits V isits Requested Authorized [id number] Closed Specialty 01/25/2013 07/24/2013 1 1 Service Requested Reason for Visit Reason Comments Thyroid Problem Encounter Details Date Type Department Care Team Description 01/25/2013 Office Visit Endocrinology at [facility] Elijah Fuentes Goiter (Primary Dx) [facility] [address] [place] [phone] [place] [address] [phone] Social History Tobacco Use Types Packs/Day Years [...] 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 All [...] the thyroid gland were obtained using a SonMoglueaxx and an HFL38/13-6 broadband linear array transducer. [...] Cardiology Zulma Dolan MD [facility] [place], [place] [address] (Wo rk) 05/28/2022 Laboratory Appointment Lab 05/28/2022 Office Visit Cardiology Zulma Dolan MD [facility] [place] [address] Liz Poole PA [facility] [place] [address] 06/10/2022 Office Visit Dermatology Laura Scherer MD [facility] DR TEJA GR-DERMAT [place], [place] [address] (Wo rk) Scheduled [...] Organization Address City/State/[place] [address] CERNER MILLENNIUM documented in this encounter Visit Diagnoses Diagnosis Goiter - Primary Goiter, unspecified documented in this encounter Care Teams Plant Sciences Professor Relationship Specialty Start Date End Date Angela Holliday APRN PCP - General 01/25/13 04/15/[address] [place] [address] documented as of this encounter
--- OUTSIDE RECORDS SUMMARY | 2022-05-01 09:04 | XMS_ITS | Encounter Summary ---
:1945 Author Organization [facility] [place] [address] Care Team Providers Name Role Phone Unknown Primary Care Provider Unavailable Reason for Visit Reason Comments Other Encounter Details Date Type Department Care Team Description 10/05/[address] [facility] Rigoberto Garcia III, [address] [place] [address] [facility] [phone] TEJA MARIE-DERMAT [place] [address] (Wo rk) Social History Tobacco Use Types [...] MD [facility] [place], [place] [address] (Wo rk) 05/28/2022 Laboratory Appointment Lab 05/28/2022 Office Visit Cardiology Zulma Dolan MD [facility] [place] [address] Liz Poole PA [facility] [place] [address] 06/10/2022 Office Visit Dermatology Laura Scherer MD [facility] DR TEJA MARIE-DERMAT [place], [place] [address] (Wo rk) documented as of this encounter Visit Diagnoses Not on filedocumented in this encounter Care Teams Lobster Man Relationship Specialty Start Date End Date Unknown PCP - General 10/04/12 01/24/13 None documented as of this encounter
--- OUTSIDE RECORDS SUMMARY | 2022-05-01 09:05 | XMS_ITS | Encounter Summary ---
:1945 Author Organization [facility] Address [address] [place] [address] Care Team Providers Name Role Phone Lovely Vicente MD Primary Care Provider Encounter Details Date Type Department Care Team Description 04/04/2021 Lab Requisition [facility] Outr Resulting Lab, Pathology & Laboratory Provider [facility] [address] [place] [address] Social History Tobacco Use Types Packs/Day Years [...] Negative [facility] SERVICES Shigella/Enteroinvasive Negative Negative [facility] SERVICES HN LAB CAMPYLOBACTER PCR Negative Negative [facility] ER LABORATORY SERVICES Shiga Toxin PCR Negative Negative [facility] Specimen Feces - Specimen from rectum (specimen) Performing Organization Address City/State/ZIP Code Phon e Number [facility] [address] [place] [address] SERVICES documented in this encounter Visit Diagnoses Not on filedocumented in this encounter Care Teams Paving Stone Installer Relationship Specialty Start Date End Date Lovely Vicente MD PCP - General 07/13/14 documented as of this encounter
--- OUTSIDE RECORDS SUMMARY | 2022-05-01 09:05 | XMS_ITS | Encounter Summary ---
:1945 Author Organization [facility] Address [address] [place] [address] Care Team Providers Name Role Phone Unknown, Provider Primary Care Provider Encounter Details Date Type Department Care Team Description 07/11/2014 Results Only [facility] Shruthi Horowitz MD Laboratory Services - [address] [place] [address] [place] [address] 0 [place] [address] [phone] Social History Tobacco Use Types Packs/Day Years Used Date Never Assessed Sex Assigned at Date Recorded Not on file documented as of this encounter Plan of Treatment Not on filedocumented as of this encounter Procedures Procedure Name Priority Date/Time Associated Diagnosis Comme [facility] SURGICAL PATHOLOGY Routine 07/11/2014 8:55 EST Re sults for this procedure are i n the results section. documented in this encounter Results SURGICAL PATHOLOGY (07/11/2014 8:55 EST) Pathology Report: SURGICAL PATHOLOGY REPORT [facility] Reports generated via electronic interface contain sorin ginal data; LABORATORY however they are lacking the format of the original re port. SERVICES Caution should be taken when reading/interpreting unfo rmatted reports. Name: ? DON HOANG ? Accession #: ? [id number] ? : ? 1945 (Age: 69) ??M [...] 6.5 x 3.0 cm in aggreg ate). Radiosonde Operator sections are submitted in 1- 10 (approximately 40% of the specimen is submitted). Viry Nunez 07/12/2014 11:21 AM End of Report Specimen Performing Organization Address City/State/ZIP Code Phon e Number [facility] LABORATORY [address] [place] [address] SERVICES documented in this encounter Visit Diagnoses Not on filedocumented in this encounter Care Teams Parts Administrator Relationship Specialty Start Date End Date Unknown, Provider, PCP - General 03/07/14 07/12/14 documented as of this encounter
--- OUTSIDE RECORDS SUMMARY | 2022-05-01 09:05 | XMS_ITS ---
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 Problem Critical ischemia I99.8 Active of lower extremity Problem Atherosclerosis I70.90 Active 3871 6007 Problem Type 2 diabetes E11.628 Active mellitus with other skin complications Problem 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 40 ; Acquired deformi ty of right foot M21.961 ; L luis term current use of i nsulin Z79.4 ; History of art erial bypass of lower extremi ty Z95.828 ; Atherosclerosis I70.90 and History of Lisfr anc amputation of fo ot Z89.439 [address] Feb, Type 2 diabet es mellitus [address] [place] with diabe tic neuropathy, [address] unspecified E11. 40 ; Acquired deformi ty of right foot M21.961 ; L luis term current use of i nsulin Z79.4 ; History of art erial bypass of lower extremi ty Z95.828 ; Atherosclerosis I70.90 and History of Lisfr anc amputation of fo ot Z89.439 [facility] November, [place] [address] [facility] [facility] November, Type 2 [place] [address] with diabeti c neuropathy, unspecified E11. 40 ; Acquired deformi ty of right foot M21.961 ; L luis term current use of i nsulin Z79.4 ; History of art erial bypass of lower extremi ty Z95.828 ; Atherosclerosis I70.90 and History of Lisfr anc amputation of fo ot Z89.439 [facility] 10 Aug, 2019 Type 2 [place] [address] with other skin complications E1 1.628 ; Tinea pedis of l eft foot B35.3 ; Type 2 d iabetes mellitus with di abetic neuropathy, unsp ecified E11.40 ; Acquire d deformity of right foot M2 1.961 ; penitentiary current use of insulin Z79.4 ; History of arterial bypass of lower extremity Z95.828 and Athe rosclerosis I70.90 [facility] Jun, [place] [address] [address] Jun, [place] [address] [address] Jun, Type 2 diabet es mellitus [place] with other skin [address] complications E1 1.628 ; Acquired deformi ty of right foot M21.961 ; T ype 2 diabetes mellitu s with diabetic neuropa thy, unspecified E11. 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 40 ; penitentiary current use of insulin Z79.4 and Histor y of arterial bypass of lower extremity Z95.82 8 [facility] November, Tinea pedis o f left foot [place], [place] B35.3 ; Ty pe 2 diabetes [address] mellitus with ot her skin complications E1 1.628 ; Acquired deformi ty of right foot M21.961 ; T ype 2 diabetes mellitu s with diabetic neuropa thy, unspecified E11. 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 40 ; Acquired deformi ty of right foot M21.961 ; P eripheral arterial disease I73.9 ; History of arter ial bypass of lower extremi ty Z95.828 ; penitentiary curren t use of insulin Z79.4 an d History of Lisfranc amputat ion of foot Z89.439 UNKNOWN Jul, [facility] 11 Jun, 2018 Type 2 [place] [address] with diabeti c neuropathy, unspecified E11. 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 40 [facility] Feb, Edema of both legs R60.0 ; [place] [address] Ulcer of lef t calf, limited to breakdown of skin L97.221 ; Acquired defor mity of right foot M21.9 61 ; Peripheral arter ial disease I73.9 ; History of arterial bypass of lower extremity Z95.828 ; Long t erm current use of insulin Z 79.4 and Type 2 diabetes mellitus with diabetic ne uropathy, unspecified E11. 40 [facility] 1 Feb, [place] [address] [facility] Feb, Edema of both legs R60.0 ; [place] [address] Ulcer of rig ht calf, limited to [...] uropathy, unspecified E11. 40 [facility] Feb, [place] [address] [facility] [address] [facility] [address] Feb, [place] [address] [facility] [address] [facility] [address] Jan, [place] [address] [facility] [address] [facility] [address] Jan, [place] [address] [facility] [address] [facility] [address] Jan, [place] [address] [facility] [address] [facility] [address] Jan, [place] [address] [facility] [address] [facility] [address] Jan, [place] [address] [facility] [address] [facility] [address] Dec, [place] [address] [facility] [address] [facility] [address] Dec, [place] [address] [facility] [address] [facility] [address] Dec, [place] [address] [facility] [address] [facility] [address] Dec, [place] [address] [facility] Dec, [place] [address] [facility] [address] [facility] [address] Dec, [place] [address] [facility] November, [place] [address] [facility] November, [place] [address] [facility] November, [place] [address] [facility] November, [place] [address] [facility] November, [place] [address] [facility] November, [place] [address] UNKNOWN November, [facility] [address] November, OFFICE [place] [address] [facility] November, [place] [address] [facility] Oct, [place] [address] [facility] Oct[place] [address] [facility] Oct, [place] [address] [facility] [address] 18 Oct, 2017 [place] [address] [facility] 16 Oct, 2017 [place] [address] [facility] [facility] [place] 16 Oct, [facility] [address] [facility] Oct, [place] [address] [facility] Oct, [place] [address] [facility] Oct, [place] [address] [facility] [facility] [address] Sep, [facility] [address] [facility] Sep, [place] [address] [facility] [address] Sep, [place] [address] [facility] [address] [place] Sep, [place] [address] [facility] [address] Sep, [place] [address] [facility] [address] Sep, Critical ischemi a of lower [place] [address] extremity I 99.8 ; Local infection of the skin and subcutaneous tis lindsey, unspecified L08. 9 and Type 2 diabetes mellitu s with other skin complicatio ns E11.628 [facility] Sep, [place] [address] [facility] [address] [facility] [address] Sep, [place] [address] [facility] [address] [facility] [address] Sep, [place] [address] [facility] [address] [facility] [address] 14 Sep, [address] [place] [address] [facility] Sep, [place] [address] [facility] Sep, [place] [address] [facility] Sep, [place] [address] [facility] Sep, [place] [address] [facility] [address] [facility] [address] Aug, [place] [address] [facility] [address] [place] Aug, [facility] [address] [facility] [address] [place] Aug, [place] [address] [facility] Aug, [place] [address] [facility] Aug, [place] [address] [facility] Aug, [place] [address] OR[facility]EDIC OFFICE [facility] Aug, Pre-op exam Z01.818 [place] [address] [facility] Aug, [place] [address] [facility] Aug, [place] [address] [facility] Aug, [place] [address] IMMUNIZATIONS No Known Immunizations SOCIAL HISTORY Qualifiers [...] 21 days No t-Taki Hyclate hyclate day 2018 ng 100 mg Lantus 100 subcutaneously 22 24h Active units/mL daily Pen Tenaha Active Ciclopirox Externally Twice 1 application 12h [...] reported u FERRITIN 2018-07-01 Ferritin 33 FERRITIN X Foot R 3V 2018-01-11 See Below For Report SED RATE 2018-01-11 ESR 19 0-20 CRP-INFLAM [...] 12.4 MO% 9.5 EO% 1.3 BA% 0.3 US LOWER EXTREMITY ARTERIAL BILATERAL 2017-12-28 See [...] For Report MR Lower Ext R w/o ([id number]) 2017-09-16 See Below For Report CR C-ARM [...] - 6.7, [facility],[place] annually, f/u - bilateral leg edema, Pt [...] at wound center,lab work done 03/07/2018 @ [facility], Patient came in with tubigrip bilateral , wound clin est, wound clinest, Wound CTR-follow up, Wound CTR-follow up, Wound CTR-follow up, Peer to Peer w/ Dr. Espino, Wound CTR-follow up, Wound CTR-follow up, Occupational Medicine Specialist Documentation, LAB, Wound CTR-follow up, Wound CTR-follow up, Wound CTR-follow up, Wound CTR-follow up, LAB, LAB, Wound CTR- follow up, Wound CTR-follow up, Wound CTR-follow up, Occupational Medicine Specialist Documentation, [facility], Wound CTR-follow up, Wound CTR-follow up, Pull PICC Line, Wound CTR-follow up, Wound CTR-follow up, LAB, Still taking doxycycline 100mg? , Wound CTR-follow up, Wound CTR-follow up, Wound CTR-follow up, Occupational Medicine Specialist Documentation, Wound CTR-follow up, Wound CTR-follow up, Call back, Occupational Medicine Specialist Documentation, Occupational Medicine Specialist Documentation, Occupational Medicine Specialist Documentation, Wound CTR-follow up, WCC, Wound CTR-follow up, Wound CTR-follow up, labs, D/C planning, bailey smetatarsal amputation of right foot, LAB, LAB, Wound CTR-NEW Insurance Providers [facility] Member Patient Patient Patient Patient Patient Subscriber Subscriber Subscriber Group Insurance Plan Plan Plan Plan ID Relationship Address Phone Name Date of ID Name Date of No Type Insurance Insurance Insurance Coverage to Subscriber Address Phone Name Dates S-BLUE [phone] S-BLUE [place] [id number] [place] [address] [place] [address]F [address]Y [address] SELF PAY self [place] [id number] AFTER BLUE [place] AFTER BLUE [facility] [id number] [place] OTHER [address] [place] [address] [phone] OTHER [place]REG[place] [id number] GRANT 1^MAIN CONSTITUTION PARTY [place] [id number] MEDICARE [address] MEDICARE self [place] [id number] [facility] [id number]
--- OUTSIDE RECORDS SUMMARY | 2022-05-01 09:05 | XMS_ITS | Encounter Summary ---
:1945 Author Organization [facility] Address [address] [place] [address] Care Team Providers Name Role Phone Lovely Vicente MD Primary Care Provider Encounter Details Date Type Department Care Team Description 02/20/2022 Lab Requisition [facility] Outr Resulting Lab, Pathology & Laboratory Provider [facility] [address] [place] [address] Social History Tobacco Use Types Packs/Day Years [...] nature PSA 2.7 <=6.5 ng/mL [facility] LABOR[facility] Y SERVICES Specimen Blood - Venous blood (substance) Narrative [facility]OR[facility] SERVICES - 02/20/2022 18:17 EDT NOTE: Serum PSA concentration should not be in terpreted as absolute evidence for the presence or absence of malignant disease. Assayed on Siemens ADVIA Centaur XPT usi ng chemiluminescent technology.??Values obtained by using different assay methods cannot be used interchangeably. Performing Organization Address City/State/ZIP Code Phon e Number [facility] [address] [place] [address] SERVICES documented in this encounter Visit Diagnoses Not on filedocumented in this encounter Care Teams Ground Service Equipment Mechanic Relationship Specialty Start Date End Date Lovely Vicente MD PCP - General 07/13/14 documented as of this encounter
--- OUTSIDE RECORDS SUMMARY | 2022-05-01 09:05 | XMS_ITS | Encounter Summary ---
:1945 Author Organization [facility] Address [address] [place] [address] Care Team Providers Name Role Phone Unknown, Provider Primary Care Provider Encounter Details Date Type Department Care Team Description 07/11/2014 Hospital Encounter [facility] [place] Unknown, Provider, [facility] [address] [place] [address] [place] [address] (Work) [phone] Social History Tobacco Use Types Packs/Day Years Used Date Never Assessed Sex Assigned at Date Recorded Not on file documented as of this encounter Discharge Disposition Disposition Code Departure Means Destination Home or Self Senior Living documented in this encounter Plan of Treatment Not on filedocumented as of this encounter Visit Diagnoses Not on filedocumented in this encounter Care Teams Section Housekeeper Relationship Specialty Start Date End Date Unknown, Provider, PCP - General 03/07/14 07/12/14 documented as of this encounter
--- OUTSIDE RECORDS SUMMARY | 2022-05-01 09:05 | XMS_ITS | Encounter Summary ---
:1945 Author Organization [facility] Address [address] [place] [address] Care Team Providers Name Role Phone Lovely Vicente MD Primary Care Provider Encounter Details Date Type Department Care Team Description 08/11/2019 Lab Requisition [facility] Unknown, Provider, Pathology & Laboratory [facility] [address] [facility] [place] [address] Social History Tobacco Use Types Packs/Day Years [...] (08/11/2019 14:35 EST) Giardia and Cryptosporidium Cryptosporidium [facility] Cryptosporidium [facility] Giardia Antigen Neg Giardia Antigen Neg LABORATORY SERVICES Specimen Feces - Specimen from rectum (specimen) Performing Organization Address City/State/ZIP Code Phon e Number [facility] [address] [place] [address] SERVICES documented in this encounter Visit Diagnoses Not on filedocumented in this encounter Care Teams Photoradio Operator Relationship Specialty Start Date End Date Lovely Vicente MD PCP - General 07/13/14 documented as of this encounter
--- OUTSIDE RECORDS SUMMARY | 2022-05-01 09:05 | XMS_ITS | Encounter Summary ---
:1945 Author Organization [facility] Address [address] [place] [address] Care Team Providers Name Role Phone Lovely Vicente MD Primary Care Provider Encounter Details Date Type Department Care Team Description 01/28/2022 Lab Requisition [facility] Outr Resulting Lab, Pathology & Laboratory Provider [facility] [address] [place] [address] Social History Tobacco Use Types Packs/Day Years Used Date Never Assessed Sex Assigned at Date Recorded Not on file documented as of this encounter Plan of Treatment Not on filedocumented as of this encounter Procedures Procedure Name Priority Date/Time Associated Diagnosis Comme nts COVID-19 TEST [facility] Today 01/27/2022 14:30 LAB PCR EDT COVID-19 TESTING Routine 01/27/2022 14:30 Results for this EDT procedure are i n the results section. documented in this encounter Results COVID-19 TEST [facility] LAB PCR (01/27/2022 14:30 EDT) Specimen Swab Performing Organization Address City/State/ZIP Code Phon e Number [facility] [address] [place] [address] SERVICES COVID-19 TESTING (01/27/2022 14:30 EDT) COVID-19 [...] was performed using the meliton SARS-CoV-2 assay ([employer] on the Meliton 6800 System Performing Lab Meliton 6800 [facility] Lab [facility] SERVICES Specimen Swab Performing Organization Address City/State/ZIP Code Phon e Number [facility] [address] [place] [id number] SERVICES documented in this encounter Visit Diagnoses Not on filedocumented in this encounter Care Teams Dipping Machine Operator Relationship Specialty Start Date End Date Lovely Vicente MD PCP - General 07/13/14 documented as of this encounter
--- OUTSIDE RECORDS SUMMARY | 2022-05-01 09:05 | XMS_ITS | Encounter Summary ---
:1945 Author Organization [facility] Address [address] [place] [address] Care Team Providers Name Role Phone Lovely Vicente MD Primary Care Provider Encounter Details Date Type Department Care Team Description 01/17/2021 Lab Requisition [facility] Outr Resulting Lab, Pathology & Laboratory Provider [facility] [address] [place] [address] Social History Tobacco Use Types Packs/Day Years [...] Phon e Number [facility] [address] [place] [address] SERVICES documented in this encounter Visit Diagnoses Not on filedocumented in this encounter Care Teams Insurance Solicitor Relationship Specialty Start Date End Date Lovely Vicente MD PCP - General 07/13/14 documented as of this encounter
--- OUTSIDE RECORDS SUMMARY | 2022-05-01 09:05 | XMS_ITS | Encounter Summary ---
:1945 Author Organization [facility] Address [address] [place] [address] Care Team Providers Name Role Phone Unavailable Primary Care Provider Unavailable Encounter Details Date Type Department Care Team Description 03/05/2014 Hospital Encounter [facility] Unknown, Provider, [facility] 0 [facility] [phone] [place] [address] (Work) [phone] Social History Tobacco Use Types Packs/Day Years [...]
--- OUTSIDE RECORDS SUMMARY | 2022-05-01 09:05 | XMS_ITS | Encounter Summary ---
:1945 Author Organization [facility] Address [address] [place] [address] Care Team Providers Name Role Phone Unknown, Provider Primary Care Provider Encounter Details Date Type Department Care Team Description 03/05/2014 Results Only [facility] Eris Taylor MD Laboratory Services - [address] [place] [address] [place] [address] [phone] Social History Tobacco Use Types Packs/Day Years Used Date Never Assessed Sex Assigned at Date Recorded Not on file documented as of this encounter Plan of Treatment Not on filedocumented as of this encounter Procedures Procedure Name Priority Date/Time Associated Diagnosis Comme [facility] SURGICAL PATHOLOGY Routine 03/05/2014 10:34 Resul [...] ? DON HOANG ? Accession #: ? [id number] ? : ? 1945 (Age: 68) ??M [...] [facility] [address] [place] [address] SERVICES [facility] [address] [place] [address] documented in this encounter Visit Diagnoses Not on filedocumented in this encounter Care Teams Cut Off Saw Operator Metal Relationship Specialty Start Date End Date Unknown, Provider, PCP - General 03/07/14 07/12/14 documented as of this encounter
--- OUTSIDE RECORDS SUMMARY | 2022-05-01 09:05 | XMS_ITS | Encounter Summary ---
:1945 Author Organization [facility] Address [address] [place] [address] Care Team Providers Name Role Phone Lovely Vicente MD Primary Care Provider Encounter Details Date Type Department Care Team Description 04/04/2021 Lab Requisition [facility] Outr Resulting Lab, Pathology & Laboratory Provider [facility] [address] [place] [address] Social History Tobacco Use Types Packs/Day Years [...] e Number [facility] [address] [place] [address] SERVICES documented in this encounter Visit Diagnoses Not on filedocumented in this encounter Care Teams Tractor Distributor Relationship Specialty Start Date End Date Lovely Vicente MD PCP - General 07/13/14 documented as of this encounter
--- OUTSIDE RECORDS SUMMARY | 2022-05-01 09:05 | XMS_ITS | Encounter Summary ---
:1945 Author Organization [facility] Address [address] [place] [address] Care Team Providers Name Role Phone Lovely Vicente MD Primary Care Provider Encounter Details Date Type Department Care Team Description 01/01/2020 Lab Requisition [facility] Outr Resulting Lab, Pathology & Laboratory Provider [facility] [address] [place] [address] Social History Tobacco Use Types Packs/Day Years [...] nature PSA 2.1 0.0 - 6.5 ng/mL [facility] Specimen Blood - Venous blood (substance) Narrative [facility] - 01/02/2020 10:40 EDT NOTE: Serum PSA concentration should not be in terpreted as absolute evidence for the presence or absence of malignant disease. Assayed on Siemens ADVIA Centaur XPT usi ng chemiluminescent technology.??Values obtained by using different assay methods cannot be used interchangeably. Performing Organization Address City/State/ZIP Code Phon e Number [facility] [address] [place] [address] SERVICES documented in this encounter Visit Diagnoses Not on filedocumented in this encounter Care Teams Naphthol Soaping Machine Operator Relationship Specialty Start Date End Date Lovely Vicente MD PCP - General 07/13/14 documented as of this encounter
--- OUTSIDE RECORDS SUMMARY | 2022-05-11 08:40 | XMS_ITS | Encounter Summary ---
:1945 Author Organization [facility] Address [facility] [place] [address] Care Team Providers Name Role Phone Lovely Vicente MD Primary Care Provider Reason for Visit Auth/Cert Specialty Diagnoses / Procedures Referred By Contact Refer red To Contact Diagnoses ASCVD (arteriosclerotic cardiovascular disease) [I25.10] Vitaliy Nobles MD [facility] Procedures PRO PERC TRLUML CORONARY STENT W/ANGIO ONE ART/BRANCH CARDIAC CATHETERIZATION STENT PLACEMENT-SINGLE MAJOR CORONARY ARTERY OR [facility] [place] [address] Referral ID Status Reason Start Date Expiration Date Visits Requ ested Visits Authorized [id number] 1 1 Encounter Details Date Type Department Care Team Description 01/30/2022 Surgery Implementation Specialist Asa Coulter MD CARDIAC CATHETERIZATION [facility] [place] [address] [place] [address] [phone] (Wo rk) Social History Tobacco Use Types [...] and Clopidogrel. Please follow up with your black ash burner operator in the next 4-6 weeks. We have made a referral to cardiac rehab. Please see the attached instructions regarding care to your right wrist access site. AttachmentsThe following attachments cannot be sent through Care Everywhere. Coronary Angiogram: Post-op (Angolan)documented in this encounter Medications at Time of [...] J, RN - 01/30/2022 4:54 PM EDT [facility] Short Stay Unit Discharge Note [...] recent PCI presenting for staged PCI to [facility]. The pt states he has been ok. [...] recent PCI presenting for staged PCI to [facility]. The indications, expected benefits, and potential risks [...] had referred him to cardiac rehab at [facility] last month per HF team. He was waiting until this intervention before starting the program. Reviewed managing angina /use of sl nitroglycerin. Given parameters for home exercise. 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 We discussed short walks several times per day. Will send [facility] his discharge summary from this admission. The patient should be contacted by the Program within 1- 2 weeks from discharge. Brief Op Note - Vitaliy Nobles MD - 01/30/2022 10:19 AM EDT Images from the original note were not included. [facility] [place] [address] [address] CORONARY ANGIOGRAM AND PERCUTANEOUS CORONARY INTERVENTION REPORT Patient: Don Fatima : 1945 MR number: [id number] Date of Service: 01/30/2022 Routing Machine Operator: Vitaliy Nobles MD Fellow: KEYON Elizabeth [...] a long 2.0 x 26 mm HARDEEP [place] TUCKER stent and positioned it at the [...] using a 2.0 x 26 mm HARDEEP [place] TUCKER stent. This completes the revascularization ofall [...] [facility] [place] [address] [place] [address] (Wo rk) 05/28/2022 Laboratory Appointment Lab 05/28/2022 Office Visit Zulma Garrison MD [facility] [place] [address] Liz Poole PA [facility] [place] [address] 06/10/2022 Office Visit Dermatology Laura Scherer MD [facility] ER [address] [facility] [place] [address] (Wo rk) Scheduled Orders Name [...] P athologist Signature Neutrophils % 71.8 % [facility] LABORATORY Neutr Abs (ANC) 3.96 1.70 - [facility] 6.10 [facility] x10(3)/[facility] LABORATORY Lymphocytes % 16.3 % [facility] LABORATORY Lymphocytes Abs 0.9 0.9 - 3.2 [facility] x10(3)/[facility] LABORATORY Monocytes % 10.0 % [facility] LABORATORY Monocyte Abs 0.6 0.3 - 0.9 [facility] x10(3)/[facility] LABORATORY Eosinophils % 0.5 % [facility] LABORATORY Eosinophils Abs 0.0 0.0 - 0.4 [facility] x10(3)/[facility] LABORATORY Basophils % 0.5 % [facility] LABORATORY Basophils Abs 0.0 0.0 - 0.1 [facility] x10(3)/[facility] LABORATORY Immature Gran % 0.90 % [facility] [...] Organization Address City/State/[place] [address] (ABNORMAL) Hemogram (01/30/2022 2:12 PM EDT) Analysis Performed At Patho logist Time Signature WBC 5.5 4.0 - 9.5 [facility] x10(3)/[facility] LABORATORY RBC 4.30 (L) 4.58 - [facility] 5.54 [facility] x10(6)/[facility] LABORATORY Hemoglobin 12.7 (L) 13.7 - [place] 16.5 g/dL [facility] LABORATORY Hematocrit 39.4 (L) 40.5 - [place] 48.5 % [facility] LABORATORY MCV 91.6 82.9 - [place] [address] [facility] LABORATORY MCH 29.5 27.5 - [place] 32.1 pg [facility] LABORATORY MCHC 32.2 32.0 - [place] 35.7 g/dL [facility] LABORATORY Platelets 172 145 - 357 [facility] x10(3)/[facility] LABORATORY RDWSD 54.5 (H) 36.0 - [place] [address] [facility] LABORATORY RDWCV 16.4 (H) 11.4 - [place] 13.8 % [facility] LABORATORY MPV 9.2 7.6 - 12.[address] [facility] LABORATORY nRBC % Auto 0.0 % [facility] LABORATORY nRBC Abs Auto 0.000 0.000 - [place] 0.000 [facility] x10(3)/[facility] LABORATORY Specimen Anatomical Collection Method Collection Time Receive d Time (Source) Location / / Volume Laterality Blood 01/30/2022 2:12 PM 2 2:37 EDT PM EDT Resulting Agency Comment Spec In Lab Eddi Elizabeth Jr., MD HEMATOLOGY ORDERABLES Performing Organization Address City/State/[place] [address] (ABNORMAL) Basic Metabolic Panel (non-fasting) (01/30/2022 2:12 PM EDT) athologist Signature Glucose Lvl 163 65 - 199 [facility] LABORATORY [...] Organization Address City/State/[place] [address] POCT Glucose (01/30/2022 1:41 PM EDT) athologist Signature POC Glucose 148 65 - 199 [facility] mg/dL [facility] [...] City/[facility]/ZIP Code Phon e Number [address] POCT Glucose (01/30/2022 10:48 AM EDT) P athologist Signature POC Glucose 193 65 - 199 [facility] LABORATORY Comment: Supplemental ranges: <140 mg/dL before meals <180 mg/dL all other times of the day Specimen Anatomical Collection Method Collection Time Receive d Time (Source) Location / / Volume Laterality Blood 01/30/2022 10:48 01/30/2022 AM EDT 10:48 AM EDT Vitaliy Nobles MD POINT OF CARE TEST ORDERABLE S Performing Organization Address [facility] [place] [address] EKG 12 Lead (01/30/2022 10:33 AM EDT) Component Value Ref Range Test Analysis Performed Pathologis t Method Time At Signature Ventricular rate 64 BPM MUSE SYSTEM Atrial Rate 64 BPM MUSE SYSTEM P-R Interval 162 ms MUSE SYSTEM QRS Duration 94 ms MUSE SYSTEM Q-T Interval 422 ms MUSE SYSTEM QTC Calculated 435 ms MUSE SYSTEM (Bezet) Calculated P [place] 41 degrees MUSE SYSTEM Calculated R [place] -27 degrees MUSE SYSTEM Calculated T [place] 104 degrees MUSE SYSTEM INTERPRETATION Normal sinus rhythm MUSE SYSTEM Anterolateral infarct (cited on or before 09-DEC-2021) Abnormal ECG When compared with ECG of 10-DEC-2021 11:17, No significant change was found Confirmed by Gary Perez ([id number]) on 01/30/2022 5:57:5 2 PM Specimen Anatomical Collection Method Collection Time Receive d Time (Source) Location / / Volume Laterality 01/30/2022 10:33 01/30/2022 5:57 AM EDT PM EDT Vitaliy Nobles MD ECG ORDERABLES Performing Organization Address City/[facility]/ZIP Code Phon e Number MUSE SYSTEM CARDIAC CATHETERIZATION (01/30/2022 10:16 AM EDT) Anatomical Region Laterality Modality Other Specimen (Source) Anatomical Location Collection Method / Collectio n Time Received Time / Laterality Volume Narrative 01/30/2022 2:09 PM EDT ?[facility] ? Cardiac Cathete rization/Intervention Report ? Patient Name: Don Fatima. ? Procedure Date: 01/30/2022 ? A #: [id number] ? Primary Physician: Nobles, Vitaliy P ? Case #: [id number] ? File Name: [id number] ? Catheterization Order Number: [id number] ? [facility] ? Final Report [place], [place] ? Patient Name: ? Don E. Stewa rt ? ID#: ?[id number] ? : ?1945 ? Procedure Date: ? [...] Urgent. The indication for ?the crime lab analyst visit is stable kn own CAD. Chest [...] guiding catheter an d a 3.[address] [facility] [address] ??20 Mhz ?using Manual pullback. ??Imagin [...] A premounted 2.00 x 26 mm Hardeep [place] (TUCKER) ? was deployed wi a maximum [...] Wedelivered along 2.0 x 26 mm HARDEEP [place] ? TUCKER stent and p ositioned it [...] prior to arrival in the crime lab analyst. ?Recommended anti-platelet/anti- thrombotic regimen: ?Continue aspirin 81 [...] may require ?modification of this regimen. [facility] ?questions. ?The [...] using a 2.0 x 26 mm HARDEEP [place] TUCKER stent. ?This completes the revasculariz ation [...] Vitaliy Nobles MD - 03/06/2022 [facility] Cardiac Catheterization/Intervention Re port Patient Name: Don Fatima Procedure Date: 01/30/2022 A #: [id number] Primary Physician: Vitaliy Nobles Case #: [id number] File Name: [id number] Catheterization Order Number: [id number] [facility] [place], [place] Patient Name: Don Fatima ID#: [...] Urgent. The indication for the crime lab analyst visit is stable known CAD. Chest pain [...] 1.5 guiding catheter and a 3.[address] [facility] [address] 20 Mhz using Manual pullback. Imaging [...] A premounted 2.00 x 26 mm Hardeep [place] (TUCKER) was deployed with a maximum inflation [...] along 2. 0 x 26 mm HARDEEP [place] TUCKER stent and positioned it at the [...] t o arrival in the crime lab analyst. Recommended anti-platelet/anti-thrombot ic regimen: Continue aspirin 81 [...] require modification of this regimen. Consult [facility] Interventional Cardiology for questions. The 1 year [...] using a 2.0 x 26 mm HARDEEP [place] TUCKER stent. This completes the revascularization of [...] POC Glucose 212 (H) 65 - 199 [facility] mg/dL [facility] [...] Organization Address City/State/[place] [address] (ABNORMAL) POCT Glucose (01/30/2022 8:10 AM EDT) athologist Signature POC Glucose 224 (H) 65 - 199 [facility] mg/dL [facility] [...] Organization Address City/State/[place] [address] documented in this encounter Visit Diagnoses Diagnosis ASCVD (arteriosclerotic cardiovascular d isease) Unspecified cardiovascular disease 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 ASHD (arteriosclerotic heart disease) Coronary atherosclerosis of unspecified type of vessel, barrow or graft ASCVD (arteriosclerotic cardiovascular d isease) Unspecified cardiovascular disease documented in this encounter Admitting Diagnoses Diagnosis CAD (coronary artery disease) Coronary atherosclerosis of unspecified type of vessel, barrow or graft documented in this encounter Administered [...] Given 02/2022 10:11 AM EDT 100 mcg (SURGICAL SERVICES MANAGER) ONCE PRN, Starting on Wed01/30/22 at [...] Procedure), Routine niCARdipine (Cardene) (100 mcg/mL) dilution (SURGICAL SERVICES MANAGER) (CANCELED ) 0927 (Given - Provider: [...] (Intra-Procedure) documented in this encounter Care Teams Line Driver Relationship Specialty Start Date End Date Lovely Vicente MD PCP - General 04/16/[address] [place] [address] documented as of this encounter
--- OUTSIDE RECORDS SUMMARY | 2022-05-11 08:40 | XMS_ITS | Clinical Summary ---
:1945 Author Organization [facility] [place] [address] Care Team Providers Name Role Phone Lovely [...] Zulma Dolan MD [facility] [place], [place] [address] (Wo rk) 05/28/2022 Laboratory Appointment Lab 05/28/2022 Office Visit Cardiology Zulma Dolan [place] [facility] [place] [address] Liz Poole PA [facility] [place] [address] 06/10/2022 Office Visit Dermatology Laura Scherer MD [facility] [address] [place], [place] [address] (Wo rk) Health Maintenance Due Date Last Done Comments Covid-19 Vaccine (#1) 1945 Pneumoccocal Vaccine: 65+ (1 - PCV) 1952 Hepatitis C Screening 1964 Tdap adult 1965 Tetanus vaccine 1965 Zoster vaccine (1 of 2) 1996 Colonoscopy 01/16/2019 01/16/2014, 01/16/2014 Influenza (Flu) vaccine (1 of 1 - 03/26/2022 03/29/2013, Influenza standard series) Medical Devices Implanted Type Area Oil Well Service Operator Device Shelf Model / Identifier Expiration Serial / Date Lot Cable,Cut,Edg,Blnt,Ss,3tpr ([id number]) - [id number] IMPLANTS Midline: [employer] 04/01/2022 [id number] / Implanted: Qty: 4 on 07/07/2017 by Yuan Retana MD at [facility] [employer] - / [id number] Procedures Procedure Name Priority Date/Time Associated Comments [...] Time Signature WBC 7.2 4.0 - 9.5 [facility] LABORATORY RBC 4.41 (L) 4.58 - [facility] RYAN 5.54 [facility] x10(6)/[facility] LABORATORY Hemoglobin 13.2 (L) 13.7 - [facility] RYAN 16.5 g/dL [facility] LABORATORY Hematocrit 40.9 40.5 - [facility] RYAN 48.5 % [facility] LABORATORY MCV 92.7 82.9 - [facility] RYAN 93.1 [facility] LABORATORY MCH 29.9 27.5 - [place] 32.1 pg [facility] LABORATORY MCHC 32.3 32.0 - [facility] RYAN 35.7 g/dL [facility] LABORATORY Platelets 191 145 - 357 [facility] x10(3)/[facility] LABORATORY RDWSD 53.6 (H) 36.0 - [facility] RYAN 45.0 [facility] LABORATORY RDWCV 15.6 (H) 11.4 - [facility] [place] 13.8 % [facility] LABORATORY MPV 8.7 7.6 - 12.9 [facility] [employer] [facility] LABORATORY nRBC % Auto 0.0 % [facility] LABORATORY nRBC Abs Auto 0.000 0.000 - [facility] RYAN 0.000 [facility] x10(3)/[facility] LABORATORY Specimen Anatomical Collection Method Collection Time Receive d Time (Source) Location / / Volume Laterality Blood 02/19/2022 8:06 AM 8:09 EDT AM EDT Resulting Agency Comment Spec In Lab Liz BROWN HEMATOLOGY ORDERABLES Performing Organization Address City/State/ZIP Code Phon e Number [place] [id number] LAB[address] (ABNORMAL) Differential, Automated (02/19/2022 8:06 AM EDT) [facility] gist Method Time Signature Neutrophils % 76.0 % [facility] LABORATORY Neutr Abs (ANC) 5.49 1.70 - [facility] 6.10 [facility] x10(3)/[facility] LABORATORY Lymphocytes % 10.8 % [facility] LABORATORY Lymphocytes Abs 0.8 (L) 0.9 - 3.2 [facility] x10(3)/[facility] LABORATORY Monocytes % 10.2 % [facility] LABORATORY Monocyte Abs 0.7 0.3 - 0.9 [facility] x10(3)/[facility] LABORATORY Eosinophils % 1.2 % [facility] LABORATORY Eosinophils Abs 0.1 0.0 - 0.4 [facility] x10(3)/[facility] LABORATORY Basophils % 0.8 % [facility] LABORATORY Basophils Abs 0.1 0.0 - 0.1 [facility] x10(3)/[facility] LABORATORY Immature Gran % 1.00 % [...] Organization Address City/State/[place] [address] (ABNORMAL) pro-Brain Natriuretic Peptide [...] Organization Address City/State/[place] [address] from Last 3 Months Insurance Payer Benefit Plan / Subscriber ID Effective Phone Address T ype Group Dates MEDICARE MEDICARE PART [id number] 2011-Prese [phone] [place] [id number] [employer] [place] [place] [id number] 2018-Prese [phone] [address] [place] [address] [place] [address] Advance Directives Documents on File Type Date Recorded Patient Barrel Raiser Explanati on Advance Directives and Living 03/28/2013 [...] capacity to make decision: Yes Care Teams Shot Hole Driller Relationship Specialty Start Date End Date Lovely Vicente MD PCP - General 04/16/15 [address] [place] [address]
--- OUTSIDE RECORDS SUMMARY | 2022-05-11 08:40 | XMS_ITS | Encounter Summary ---
:1945 [place] [address] Care Team Providers Name Role Phone Lovely Vicente MD Primary Care Provider Reason for Visit Reason Onset Date Comments Follow-up 02/26/2022 Entresto start Encounter Details Date Type Department Care Team Description 02/26/2022 Telephone Cardiology at [facility] Martha Comer, Follow-up ([facility] RN start) [place] [phone] Social History Tobacco Use Types Packs/Day [...] on 03/05/22 Getting labs done at : [facility] Order e-faxed by STEPHANIE Poole on 02/24/22. /pt to call on 03/05/22 letting us know to get the BMP results from [facility]. Nursing to get results and contact pt to see how he is tolerating the Entresto. They are to call sooner with any questions/concerns. documented in this encounter Plan of Treatment Upcoming Encounters Date Type Specialty Care Team Description 05/28/2022 Appointment Cardiology Zulma Dolan MD [facility] [place], [place] [address] (Wo rk) 05/28/2022 Laboratory Appointment Lab 05/28/2022 Office Visit Cardiology Zulma Dolan MD [facility] [place] [address] Liz Poole PA [facility] [place] [address] 06/10/2022 Office Visit Dermatology Laura Scherer MD [facility] [address] [place], [place] 0[address] (Wo rk) documented as of this encounter Visit Diagnoses Not on filedocumented in this encounter Care Teams Part Time Relationship Specialty Start Date End Date Lovely Vicente MD PCP - General 04/16/[address] [place] [address] documented as of this encounter
--- OUTSIDE RECORDS SUMMARY | 2022-05-11 08:40 | XMS_ITS | Encounter Summary ---
:1945 Author Organization [facility] [place] [address] Care Team Providers Name Role Phone Lovely Vicente MD Primary Care Provider Reason for Referral Diagnostic Test (Routine) - Authorized Specialty Diagnoses / Procedures Referred By Contact Refer red To Contact Cardiology Diagnoses Chronic systolic heart failure Liz Carrera PA [facility] Non-Inv Card Lab Procedures Echocardiogram Transthoracic [facility] [place] [address] [place] [address] Fax: Referral ID Status Reason Start Expiration Visits Visits Date Date Requested Authorized [id number] Authorized Specialty 02/19/2022 02/19/2023 1 1 Service Requested Encounter Details Date Type Department Care Team Description 02/19/2022 Office Visit Cardiology at [facility] Liz Carrera, Chronic systolic heart [facility] [place] [address] Cardiology Dept [phone] [place], [place] [address] Social History Tobacco Use Types [...] 72 year old male w/ a h/o AMRIA VICTORIA (using CPAP), DM2, COPD, HTN, HLD, [...] As per DC Summary - Admitted to [facility] 12/08/21, transferred from [facility], respiratory distress with hypoxia [...] mg PO daily in place of Lasix. Pender is new for him and he will [...] Antiplatelet (DAPT) Recommendations above ? TTE from [facility] 12/08/21 ?? 07/28/2019 Echocardiogram: [...] regurgitation present. 07/07/2019 - 07/21/2019 Zio Patch Culinary Artist The patient had a minimum heart rate [...] 12.5 mg daily 6. Post-op atrial fibrillation [id number] (CHF, HTN, DM, vascular disease, thromboembolism) [...] Zulma Dolan MD [facility] [place], [place] [address] (Wo rk) 05/28/2022 Laboratory Appointment Lab 05/28/2022 Office Visit Cardiology Zulma Dolan MD [facility] [place] [address] Liz Carrera PA [facility] [place] [address] 06/10/2022 Office Visit Dermatology Laura Scherer MD [facility] [address] [place], [place] [address] (Wo rk) Scheduled Orders Name Type Priority Associated Order Schedule Diagnoses Echocardiogram Echocardiography Routine Chronic systolic Expec vlad: Transthoracic heart failure 05/22/2022 (Approximate), Expires: 11/21/2022 documented as of this encounter Results (ABNORMAL) Basic Metabolic Panel (non-fasting) (02/19/2022 8:06 AM EDT) P athologist Signature Glucose Lvl 139 65 - 199 [facility] mg/dL [facility] LABORATORY [...] City/State/ZIP Code Phon e Number [place] [id number]OSPITAL LAB[address] (ABNORMAL) pro-Brain Natriuretic Peptide [...] City/State/[place] [address] documented in this encounter Visit Diagnoses Diagnosis Chronic systolic heart failure documented in this encounter Care Teams Behavior Analyst Relationship Specialty Start Date End Date Lovely Vicente MD PCP - General 04/16/[address] [place] [address] documented as of this encounter
--- OUTSIDE RECORDS SUMMARY | 2022-05-11 08:40 | XMS_ITS | Encounter Summary ---
:1945 Author Organization [facility] [place] [address] Care Team Providers Name Role Phone Lovely Vicente MD Primary Care Provider Encounter Details Date Type Department Care Team Description 02/19/2022 Laboratory Appointment Lab 3L [facility] [place] [phone] Social History Tobacco Use Types Packs/Day Years [...] MD [facility] er [place], [place] [address] (Wo rk) 05/28/2022 Laboratory Appointment Lab 05/28/2022 Office Visit Cardiology Zulma Dolan MD [facility] [place] [address] Liz Poole PA [facility] [place] [address] 06/10/2022 Office Visit Dermatology Laura Scherer MD [facility] [address] [place] [address] (Wo rk) documented as of this encounter [...] Differential, Automated (02/19/2022 8:06 AM EDT) [facility] gist Method Time Signature Neutrophils % 76.0 % [facility] Neutr Abs (ANC) 5.49 1.70 - [facility] 6.10 [facility] x10(3)/[facility] LABORATORY Lymphocytes % 10.8 % [facility] Lymphocytes Abs 0.8 (L) 0.9 - 3.2 [facility] x10(3)/[facility] LABORATORY Monocytes % 10.2 % [facility] Monocyte Abs 0.7 0.3 - 0.9 [facility] x10(3)/[facility] LABORATORY Eosinophils % 1.2 % [facility] Eosinophils Abs 0.1 0.0 - 0.4 [facility] x10(3)/[facility] LABORATORY Basophils % 0.8 % [facility] Basophils Abs 0.1 0.0 - 0.1 [facility] x10(3)/[facility] LABORATORY Immature Gran % 1.00 % [...] Abs 0.07 (H) 0.00 - 0.04 x10(3)/[facility] LABORATORY Specimen Anatomical Collection Method Collection Time Receive d Time (Source) Location / / Volume Laterality Blood 02/19/2022 8:06 AM 8:09 EDT AM EDT Resulting Agency Comment Spec In Lab Liz BROWN HEMATOLOGY ORDERABLES Performing Organization Address City/State/[place] [address] (ABNORMAL) Hemogram (02/19/2022 8:06 AM EDT) Analysis Performed At Patho logist Time Signature WBC 7.2 4.0 - 9.5 [facility] x10(3)/[facility] LABORATORY RBC 4.41 (L) 4.58 - [facility] 5.54 [facility] x10(6)/[facility] LABORATORY Hemoglobin 13.2 (L) 13.7 - [facility] 16.[facility] g/dL [facility] Hematocrit 40.9 40.5 - [facility] 48.5 % [facility] MCV 92.7 82.9 - [facility] 93.1 [facility] LABORATORY MCH 29.9 27.5 - [facility] 32.1 pg [facility] MCHC 32.3 32.0 - [facility] 35.7 g/dL [facility] Platelets 191 145 - 357 [facility] x10(3)/[facility] LABORATORY RDWSD 53.6 (H) 36.0 - [facility] 45.0 [facility] LABORATORY RDWCV 15.6 (H) 11.4 - [facility] 13.8 % [facility] MPV 8.7 7.6 - 12.9 [facility] LABORATORY nRBC % Auto 0.0 % [facility] nRBC Abs Auto 0.000 0.000 - [facility] 0.000 [facility] x10(3)/[facility] LABORATORY Specimen Anatomical Collection Method Collection Time Receive d Time (Source) Location / / Volume Laterality Blood 02/19/2022 8:06 AM 2 8:09 EDT AM EDT Resulting Agency Comment Spec In Lab Liz BROWN HEMATOLOGY ORDERABLES Performing Organization Address City/[facility]/[place] [address] (ABNORMAL) pro-Brain Natriuretic Peptide [...] Organization Address City/State/[place] [address] (ABNORMAL) Basic Metabolic Panel (non-fasting) (02/19/2022 8:06 AM EDT) P athologist Signature Glucose Lvl 139 65 - 199 [facility] mg/dL [facility] Comment: Diabetes: >=200 [...] City/State/[place] [address] documented in this encounter Visit Diagnoses Diagnosis Chronic systolic heart failure documented in this encounter Care Teams Pulper Tender Relationship Specialty Start Date End Date Lovely Vicente MD PCP - General 04/16/[address] [place] [address] documented as of this encounter
--- OUTSIDE RECORDS SUMMARY | 2022-05-11 08:40 | XMS_ITS | Encounter Summary ---
:1945 Author Organization [facility] Address [facility] [place] [address] Care Team Providers Name Role Phone Lovely Vicente MD Primary Care Provider Reason for Visit Reason Comments Prior Authorization Entresto 24-26mg tablets Encounter Details Date Type Department Care Team Description 02/20/2022 Specialty Pharmacy Pharmacy [place] [facility] Lamberto Smith Prior Authorization [facility] J (Entresto 24-26mg Drive tablets) [place] [phone] Social History Tobacco Use Types Packs/Day Years [...] Fatima Patient : 1945 Patient Address: [address] [place] [address] [place] [address] (home) Medication Name: ENTRESTO 24 MG-26 MG TABLET Medication ID: [id number] Patient Location: [facility]A Patient Location Comment: Medication Strength Frequency Requested: Entresto 24-26mg tablets / One tablet twice daily Qty/Day Supply: New Start: New to Therapy Diagnosis & ICD-10 Code: Chronic systolic heart failure, I50.22 Subscriber Insurance: [employer] [facility] Subscriber Insurance Comment: Fax: Physician: LIZ CARRERA Physician Comment : PA Status: NO PA REQUIRED Insurance mandated Pharmacy: Unknown Fillable at [facility]: Yes Insurance requirements/notes: None Copay: $119.01 (goes to coverage gap/odalys monteiro) Copay assistance: [employer] Copay assistance comment: If cost isn't affordable, then we'll suggest enrollment in the currently open [facility] Heart Failure zoila, which provides up to $1000 in copay assistance. If zoila closes, or doesn't work out, then the patient can attempt enrollment in the coffee host assistance program, the [employer] Patient Assistance [employer] (NPAF). At which point we'd refer to [facility] for assistance with enrollment. Pharmacy [...] Zulma Dolan MD [facility] Dr [place], [place] [address] (Wo rk) 05/28/2022 Laboratory Appointment Lab 05/28/2022 Office Visit Cardiology Zulma Dolan MD [facility] [place] [address] Liz Carrera PA [facility] [place] [address] 06/10/2022 Office Visit Dermatology Laura Scherer MD [facility] ER DR [address] [place], [place] [address] (Wo rk) documented as of this encounter Visit Diagnoses Not on filedocumented in this encounter Care Teams Stamps Or Coins Salesperson Relationship Specialty Start Date End Date Lovely Vciente MD PCP - General 04/16/[address] [place] [address] documented as of this encounter
--- OUTSIDE RECORDS SUMMARY | 2022-05-11 08:40 | XMS_ITS | Encounter Summary ---
:1945 Author Organization [facility] [place] [address] Care Team Providers Name Role Phone Lovely Vicente MD Primary Care Provider Encounter Details Date Type Department Care Team Description 02/24/2022 Notes Only [place] [address] Social History Tobacco Use Types Packs/Day [...] return to the Medication Assistance Program. The [facility] office will follow up with the patient in 5 business days to see if the patient has received the application and if they have any questions. documented in this encounter Plan of Treatment Upcoming Encounters Date Type Specialty Care Team Description 05/28/2022 Appointment Cardiology Zulma Dolan MD [facility] Dr [place], [place] [address] (Wo rk) 05/28/2022 Laboratory Appointment Lab 05/28/2022 Office Visit Cardiology Zulma Dolan MD [facility] [place] [address] Liz Poole PA [facility] [place] [address] 06/10/2022 Office Visit Dermatology Laura Scherer MD [facility] ER DR [address] [place], [place] [address] (Wo rk) documented as of this encounter Visit Diagnoses Not on filedocumented in this encounter Care Teams Basket Hand Braider Relationship Specialty Start Date End Date Lovely Vicente MD PCP - General 04/16/[address] [place] [address] documented as of this encounter
--- OUTSIDE RECORDS SUMMARY | 2022-05-11 08:40 | XMS_ITS | Encounter Summary ---
:1945 Author Organization [facility] [place] [address] Care Team Providers Name Role Phone Lovely Vicente MD Primary Care Provider Encounter Details Date Type Department Care Team Description 02/23/2022 Refill Card[place] [facility] Liz Poole PA [facility] [place] [address] Cardiology Dept [phone] [place], [place] [address] (Wo rk) Social History Tobacco [...] Oneill RPH Transfer of Services Don Fatima [address] [place] [address] [place] [address] Telephone Information: Work Phone Not on file. [facility] has received a prescription for Entresto for patient Mr. Don Fatima 76 y.o. (1945). The patient requests the prescription to be filled with [facility]. We spoke to patient to notify of this change and to provide number to reach the new filling pharmacy. A copyof patient's medication profile was offered to the accepting pharmacy. Additional instructions provided to patient about transfer: no The patient has been advised to call the [facility] at [phone] with any questionsor concerns on this referral. Thank you, Oxana Oneill RPH 02/23/22 4:26 PM Patient understands no changes to current drug regimen were made at this time. documented in this encounter Plan of Treatment Upcoming Encounters Date Type Specialty Care Team Description 05/28/2022 Appointment Cardiology Zulma Dolan MD [facility] [place], [place] [address] (Wo rk) 05/28/2022 Laboratory Appointment Lab 05/28/2022 Office Visit Cardiology Zulma Dolan MD [place] [address] Liz Poole PA [facility] [place] [address] 06/10/2022 Office Visit Dermatology Laura Scherer MD [facility] [address] [place], [place] [address] (Wo rk) documented as of this encounter Visit Diagnoses Not on filedocumented in this encounter Care Teams Microbiology Lab Manager Relationship Specialty Start Date End Date Lovely Vicente MD PCP - General 04/16/[address] [place] [address] documented as of this encounter
--- OUTSIDE RECORDS SUMMARY | 2022-05-11 08:40 | XMS_ITS | Encounter Summary ---
:1945 Author Organization [facility] [place] [address] Care Team Providers Name Role Phone Lovely Vicente MD Primary Care Provider Encounter Details Date Type Department Care Team Description 03/26/2022 Office Visit Cardiology at [facility] Vitaliy Nobles MD Chronic systolic heart failure; [facility] ASCVD (ar teriosclerotic cardiovascular disease); [facility] Cardiomyopathy, ischemic [place], [place] CARDIOLOGY [address] [place] [address] [phone] Social History Tobacco Use Types Packs/Day Years [...] [facility] [place] [address] CARDIOLOGY OUTPATIENT CLINIC VISIT [facility] Don Mccollum Kushal 03/26/2022 Referring Providers: MD Jules Cr Joyce, MD [address] [place] [address] CHIEF COMPLAINT: I am doing well CARDIAC-RELEVANT [...] using a 2.0 x 26 mm ORION [place] TUCKER stent. This completes therevascularization of all [...] in [address] Lovely Vicente MD [address] [place] [address] HISTORY OF PRESENT ILLNESS: Don Fatima is [...] using a 2.0 x 26 mm ORION [place] TUCKER stent. This completes the revascularization of [...] [facility] MAIN OR ??? PRO PERC TRLUML CORONARY STENT W/ANGIO ONE ART/BRANCH N/A 01/30/2022 STENT PLACEMENT-SINGLE MAJOR CORONARY ARTERY OR BRANCH performed by Vitaliy Nobles MD at [facility] CATH LABS ??? PRO THYROIDECTOMY 03/28/2013 THYROIDECTOMY, TOTAL OR COMPLETE performed by Manny Mcknight MD at [facility] MAIN OR SOCIAL HISTORY: reports that [...] using a 2.0 x 26 mm ORION [place] TUCKER stent. This completes the revascularization of [...] Sincerely, Dr. Vitaliy Nobles MD [place] Defect Repairer Glassware Interventional Cardiology 03/26/2022 CC: Lovely Vicente MD [...] As per DC Summary - Admitted to [facility] on 12/08/21, transferred from [facility], respiratory distress with hypoxia 86% [...] his PCP. He started [facility] in [facility]. Monitored vitals/trends at home: Weight 191-194 [...] (DAPT) Recommendations above ? TTE from [facility] 12/08/21 ?? 07/28/2019 Echocardiogram: SUMMARY: [...] present. 07/07/2019 - 07/21/2019 Zio Patch Vegetable Grader The patient had a minimum heart [...] 12.5 mg daily 6. Post-op atrial fibrillation [id number] (CHF, HTN, DM, vascular disease, thromboembolism) Eliquis 7. PAD 08/06/2017: Right 1st, 2nd, 3rd toe amputation 08/11/2017: Left??femoral arterial access, RLE??angiogram, Balloon angioplasty of R PT 10/25/2017: right popliteal-pedal bypass at [facility] [...] Cardiology Zulma Dolan MD [facility] [place] [address] Liz Poole PA [facility] [place] [address] 06/10/2022 Office Visit Dermatology Laura Scherer MD [facility] DR [address] [place], [place] [address] (Wo rk) documented as of this encounter Visit Diagnoses Diagnosis Chronic systolic heart failure ASCVD (arteriosclerotic cardiovascular d isease) Unspecified cardiovascular disease Cardiomyopathy, ischemic Other specified forms of chronic ischemi c heart disease documented in this encounter Care Teams Retail Presentation Specialist Relationship Specialty Start Date End Date Lovely Vicente MD PCP - General 04/16/[address] [place] [address] documented as of this encounter
--- OUTSIDE RECORDS SUMMARY | 2022-05-11 08:40 | XMS_ITS | Encounter Summary ---
:1945 Author Organization [facility] Address [facility] [place] [address] Care Team Providers Name Role Phone Lovely Vicente MD Primary Care Provider Reason for Visit Reason Onset Date Comments Medication Refill 04/09/2022 Jardiance Encounter Details Date Type Department Care Team Description 04/09/2022 Refill Cardiology at [facility] Liz Poole PA Medication Refill [facility] (Ja rdiance) [place] [address] Cardiology Dept [phone] [place], [place] [address] (Wo rk) Social History [...] [facility] er Dr [place] [address] (Wo rk) 05/28/2022 Laboratory Appointment Lab 05/28/2022 Office Visit Cardiology Zulma Dolan MD [facility] [place] [address] Liz Poole PA [facility] [place] [address] 06/10/2022 Office Visit Dermatology Laura Scherer MD [facility] ER DR [address] [place], [place] [address] (Wo rk) documented as of this encounter Visit Diagnoses Diagnosis Chronic systolic heart failure documented in this encounter Care Teams Hammer Runner Relationship Specialty Start Date End Date Lovely Vicente MD PCP - General 04/16/[address] [place] [address] documented as of this encounter
--- OUTSIDE RECORDS SUMMARY | 2022-05-11 08:40 | XMS_ITS | Encounter Summary ---
:1945 Author Organization [facility] [address] Care Team Providers Name Role Phone Lovely Vicente MD Primary Care Provider Reason for Visit Reason Onset Date Comments Follow-up 02/23/2022 Medication adjustmen t and new med Encounter Details Date Type Department Care Team Description 02/23/2022 Telephone Cardiology at [facility] Martha Comer, Follow-up ([facility] RN adjustbrandon t and new med) [place] [address] Social History Tobacco Use Types Packs/Day [...] tablet) daily. She will correct his pill event planner to the new dose. Will [...] if he qualifies for assistance from the [employer]. She is thankful for the assistance, as he is taking insulin that is very expensive too. Instructed to call this technical writer and editor, if he does qualify for assistance from [employer] and that he has gotten the medication [...] Cardiology Zulma Dolan MD [facility] [place], [place] [address] (Wo rk) 05/28/2022 Laboratory Appointment Lab 05/28/2022 Office Visit Cardiology Zulma Dolan MD [facility] [place] [address] Liz Poole PA [facility] [place] [address] 06/10/2022 Office Visit Dermatology Laura Scherer MD [facility] [address] [place], [place] [address] (Wo rk) documented as of this encounter Visit Diagnoses Not on filedocumented in this encounter Care Teams Metal Organ Pipe Maker Relationship Specialty Start Date End Date Lovely Vicente MD PCP - General 04/16/[address] [place] [address] documented as of this encounter
--- OUTSIDE RECORDS SUMMARY | 2022-05-11 08:40 | XMS_ITS | Encounter Summary ---
:1945 Author Organization [facility] [place] [address] Care Team Providers Name Role Phone Lovely Vicente MD Primary Care Provider Reason for Visit Reason Comments Medication Refill Encounter Details Date Type Department Care Team Description 04/07/2022 Refill Cardiology at [facility] Janneth Padilla PA Medication Refill [facility] [place] [address] CARDIOLOGY DEPT. [phone] [place], [place] [address] (Wo rk) Social History Tobacco [...] Dolan MD [facility] er [place], [place] [address] (Wo rk) 05/28/2022 Laboratory Appointment Lab 05/28/2022 Office Visit Cardiology Zulma Dolan MD [facility] [place] [address] Liz Poole PA [facility] [place] [address] 06/10/2022 Office Visit Dermatology Laura Scherer MD [facility] [address] [place], [place] [address] (Wo rk) documented as of this encounter Visit Diagnoses Not on filedocumented in this encounter Care Teams Truck Mechanic Relationship Specialty Start Date End Date Lovely Vicente MD PCP - General 04/16/[address] [place] [address] [address] [place] [address] documented as of this encounter
--- OUTSIDE RECORDS SUMMARY | 2022-05-11 08:40 | XMS_ITS | Encounter Summary ---
:1945 Author Organization [facility] [place] [address] Care Team Providers Name Role Phone Lovely Vicente MD Primary Care Provider Encounter Details Date Type Department Care Team Description 02/24/2022 Orders Only Cardiology at [facility] Liz Poole, Chronic systolic heart [facility] [place] [address] Cardiology Dept [place], [place] [address] Social History Tobacco Use Types [...] MD [facility] [place], [place] [address] (Wo rk) 05/28/2022 Laboratory Appointment Lab 05/28/2022 Office Visit Cardiology Zulma Dolan MD [facility] [place] [address] Liz Poole PA [facility] [place] [address] 06/10/2022 Office Visit Dermatology Laura Scherer MD [facility] ER [address] [place], [place] [address] (Wo rk) documented as of this encounter Visit Diagnoses Diagnosis Chronic systolic heart failure documented in this encounter Care Teams Heavy Machinery Operator Relationship Specialty Start Date End Date Lovely Vicente MD PCP - General 04/16/[address] [place] [address] documented as of this encounter
--- OUTSIDE RECORDS SUMMARY | 2022-05-11 08:40 | XMS_ITS | Encounter Summary ---
:1945 [place] [address] Care Team Providers Name Role Phone Lovely Vicente MD Primary Care Provider Reason for Visit Reason Onset Date Comments Follow-up 03/06/2022 Dave Bueno Encounter Details Date Type Department Care Team Description 03/06/2022 Telephone Cardiology at [facility] Martha Comer, Follow-up ([facility] Start) [place] [address] Social History Tobacco Use Types Packs/Day [...] pt had gotten his labs done at [facility] yesterday. Results received, scanned and entered [...] Cardiology Zulma Dolan MD [facility] [address] [place], [place] [address] (Wo rk) 05/28/2022 Laboratory Appointment Lab 05/28/2022 Office Visit Cardiology Zulma Dolan MD [facility] [place] [address] Liz Poole PA [facility] [place] [address] 06/10/2022 Office Visit Dermatology Laura Scherer MD [facility] [address] [place], [place] [address] (Wo rk) documented as [...] filedocumented in this encounter Care Teams Chief Unit Forester Relationship Specialty Start Date End Date Lovely Vicente MD PCP - General 04/16/[address] [place] [address] documented as of this encounter
--- OUTSIDE RECORDS SUMMARY | 2022-05-11 08:40 | XMS_ITS | Encounter Summary ---
:1945 Author Organization [facility] [address] Care Team Providers Name Role Phone Lovely Vicente MD Primary Care Provider Reason for Visit Auth/Cert Specialty Diagnoses / Procedures Referred By Contact Refer red To Contact Diagnoses ASCVD (arteriosclerotic cardiovascular disease) [I25.10] Vitaliy Nobles MD [facility] Procedures PRO PERC TRLUML CORONARY STENT W/ANGIO ONE ART/BRANCH CARDIAC CATHETERIZATION STENT PLACEMENT-SINGLE MAJOR CORONARY ARTERY OR BRANCH [facility] [place] [address] Referral ID Status Reason Start Date Expiration Date Visits Requ ested Visits Authorized [id number] 1 1 Encounter Details Date Type Department Care Team Description 01/30/2022 Laboratory Lab 3L Katalina ASCVD (arterios clerotic Appointment [facility] cardiovas cular disease) [place] [address] Social History Tobacco Use Types Packs/Day Years [...] Zulma Dolan MD [facility] [place], [place] [address] (Wo rk) 05/28/2022 Laboratory Appointment Lab 05/28/2022 Office Visit Cardiology Zulma Dolan MD [facility] [place] [address] Liz Poole PA [facility] [place] [address] 06/10/2022 Office Visit Dermatology Laura Scherer MD [facility] [address] [place], [place] [address] (Wo rk) documented as of [...] (ABNORMAL) Differential, Automated (01/30/2022 7:19 AM EDT) [facility] gist Method Time Signature Neutrophils % 77.9 % [facility] LABORATORY Neutr Abs (ANC) 5.31 1.70 - [facility] 6.10 [facility] x10(3)/[facility] LABORATORY Lymphocytes % 12.0 % [facility] Lymphocytes Abs 0.8 (L) 0.9 - 3.2 [facility] x10(3)/[facility] LABORATORY Monocytes % 8.1 % [facility] Monocyte Abs 0.6 0.3 - 0.9 [facility] x10(3)/[facility] LABORATORY Eosinophils % 0.4 % [facility] Eosinophils Abs 0.0 0.0 - 0.4 [facility] x10(3)/[facility] LABORATORY Basophils % 0.6 % [facility] Basophils Abs 0.0 0.0 - 0.1 [facility] x10(3)/[facility] LABORATORY [...] [place] [address] (ABNORMAL) Hemogram (01/30/2022 7:19 AM EDT) Analysis Performed At Patho logist Time Signature WBC 6.8 4.0 - 9.5 [facility] x10(3)/[facility] LABORATORY RBC 4.32 (L) 4.58 - [facility] 5.54 [facility] x10(6)/[facility] LABORATORY Hemoglobin 13.0 (L) 13.7 - [facility] 16.5 g/dL [facility] LABORATORY Hematocrit 39.8 (L) 40.5 - [facility] 48.5 % [facility] LABORATORY MCV 92.1 82.9 - [facility] 93.1 fL [facility] LABORATORY MCH 30.1 27.5 - [facility] 32.1 pg [facility] LABORATORY MCHC 32.7 32.0 - [facility] RYAN 35.7 g/dL [facility] LABORATORY Platelets 172 145 - 357 [facility] x10(3)/[facility] LABORATORY RDWSD 54.5 (H) 36.0 - [facility] RYAN 45.0 [facility] LABORATORY RDWCV 16.2 (H) 11.4 - [facility] 13.8 % [facility] LABORATORY MPV 9.0 7.6 - 12.9 [facility] LABORATORY nRBC % Auto 0.0 % [facility] nRBC Abs Auto 0.000 0.000 - [facility] 0.000 [facility] x10(3)/[facility] LABORATORY Specimen Anatomical Collection Method Collection Time Receive d Time (Source) Location / / Volume Laterality Blood 01/30/2022 7:19 AM 7:21 EDT AM EDT Resulting Agency Comment Spec In Lab Zulma BROWN HEMATOLOGY ORDERABLES Performing Organization Address City/State/ZIP [place] [address] (ABNORMAL) Basic Metabolic Panel (non-fasting) (01/30/2022 7:19 AM EDT) P athologist Signature Glucose Lvl 237 (H) 65 - 199 [facility] mg/dL [facility] [...] 107 mmol/L [facility] CO2 30 22 - 31 mmol/L [facility] Anion Gap 11 5 - 15 mmol/L [facility] LABORATORY Calcium 9.5 8.5 - 10.5 mg/dL [facility] LABORATORY Estimated GFR 50 (L) >=60 mL/min/1.73 m?? [facility] [...] City/State/ZIP Code Phon e Number [place] [phone] documented in this encounter Visit Diagnoses Diagnosis ASCVD (arteriosclerotic cardiovascular d isease) Unspecified cardiovascular disease documented in this encounter Care Teams Audio Specialist Relationship Specialty Start Date End Date Lovely Vicente MD PCP - General 04/16/[address] [place] [address] documented as of this encounter
--- OUTSIDE RECORDS SUMMARY | 2022-05-11 08:40 | XMS_ITS | Encounter Summary ---
:1945 Author Organization [facility] Address [facility] [place] [address] Care Team Providers Name Role Phone Lovely Vicente MD Primary Care Provider Reason for Visit Reason Onset Date Comments Medication Refill 03/06/2022 Metoprolol Succinate Encounter Details Date Type Department Care Team Description 03/06/2022 Refill Cardiology at [facility] Liz Poole PA Medication Refill [facility] (Ms toprolol Succinate) [place] [address] Cardiology Dept [phone] [place], [place] [address] (Wo rk) Social History [...] Dolan MD [facility] er [address] [place], [place] [address] (Wo rk) 05/28/2022 Laboratory Appointment Lab 05/28/2022 Office Visit Cardiology Zulma Dolan MD [facility] [place] [address] [facility] [place] [address] 06/10/2022 Office Visit Dermatology Laura Scherer MD [facility] ER [address] [place], [place] [address] (Wo rk) documented as of this encounter Visit Diagnoses Diagnosis Chronic systolic heart failure Cardiomyopathy, ischemic Other specified forms of chronic ischemi c heart disease documented in this encounter Care Teams Information Assistant Relationship Specialty Start Date End Date Lovely Vicente MD PCP - General 04/16/[address] [place] [address] documented as of this encounter
--- OUTSIDE RECORDS SUMMARY | 2022-05-11 08:40 | XMS_ITS | Encounter Summary ---
:1945 Author Organization [facility] [place] [address] Care Team Providers Name Role Phone Lovely Vicente MD Primary Care Provider Reason for Visit Reason Onset Date Comments Medication Refill 03/11/2022 Encounter Details Date Type Department Care Team Description 03/06/2022 Refill Cardiology at [facility] Liz Poole PA Medication Refill [facility] Jorge mcnamara [facility] [place] [address] Cardiology Dept [phone] [place], [place] [address] (Wo rk) Social History Tobacco [...] Dolan MD [facility] er [place], [place] [address] (Wo rk) 05/28/2022 Laboratory Appointment Lab 05/28/2022 Office Visit Cardiology Zulma Dolan MD [facility] [place] [address] Liz Poole PA [facility] [place] [address] 06/10/2022 Office Visit Dermatology Laura Scherer MD [facility] ER DR [address] [place], [place] [address] (Wo rk) documented as of this encounter Visit Diagnoses Not on filedocumented in this encounter Care Teams Software Engineer Intern Relationship Specialty Start Date End Date Lovely Vicente MD PCP - General 04/16/[address] [place] [address] documented as of this encounter
--- OUTSIDE RECORDS SUMMARY | 2022-05-11 08:41 | XMS_ITS | Encounter Summary ---
:1945 [place] [address] Care Team Providers Name Role Phone Lovely Vicente MD Primary Care Provider Encounter Details Date Type Department Care Team Description 12/30/[address] Notes [address] [facility] [place] [address] Social History Tobacco Use Types Packs/Day [...] Failure team. DX: HFrEF. Referral placed to [facility] documented in this encounter Plan of Treatment Upcoming Encounters Date Type Specialty Care Team Description 05/28/2022 Appointment Cardiology Zulma Dolan MD [facility] [address] [place], [place] [address] (Wo rk) 05/28/2022 Laboratory Appointment Lab 05/28/2022 Office Visit Cardiology Zulma Dolan MD [facility] [place] [address] Liz Poole PA [facility] [place] [address] 06/10/2022 Office Visit Dermatology Laura Scherer MD [facility] ER DR [address] [place], [place] [address] (Wo rk) documented as of this encounter Visit Diagnoses Not on filedocumented in this encounter Care Teams Laboratory Mechanical Technician Relationship Specialty Start Date End Date Lovely Vicente MD PCP - General 04/16/[address] [place] [address] documented as of this encounter
--- OUTSIDE RECORDS SUMMARY | 2022-05-11 08:41 | XMS_ITS | Encounter Summary ---
:1945 Author Organization [facility] Address [facility] [place] [address] Care Team Providers Name Role Phone Lovely Vicente MD Primary Care Provider Reason for Visit Auth/Cert Specialty Diagnoses / Procedures Referred By Contact Refer red To Contact Diagnoses ASCVD (arteriosclerotic cardiovascular disease) [I25.10] Vitaliy Nobles MD [facility] Procedures PRO PERC TRLUML CORONARY STENT W/ANGIO ONE ART/BRANCH CARDIAC CATHETERIZATION STENT PLACEMENT-SINGLE MAJOR CORONARY ARTERY OR BRANCH [facility] [place] [address] Referral ID Status Reason Start Date Expiration Date Visits Requ ested Visits Authorized [id number] 1 1 Encounter Details Date Type Department Care Team Description 01/30/2022 Hospital Encounter Short Stay Unit at Vitaliy Nobles, CVD (arteriosclerotic cardiovascular disease); Barbara Blue MD 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 Please follow up with your philosophy faculty in the next 4-6 weeks. 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 I had referred him to [...] [facility] [place] [address] CORONARY ANGIOGRAM AND PERCUTANEOUS CORONARY INTERVENTION REPORT Patient: Don Fatima : 1945 MR number: [id number] Date of Service: 01/30/2022 Char Filter Operator: Vitaliy Nobles MD Fellow: KEYON Elizabeth [...] a long 2.0 x 26 mm HARDEEP Prewitt TUCKER stent and positioned it at the [...] using a 2.0 x 26 mm HARDEEP Prewitt TUCKER stent. This completes the revascularization ofall [...] MD [facility] [place] [address] Liz Poole PA [facility] [place] [address] 06/10/2022 Office Visit Dermatology Laura Scherer MD [facility] ER [address] [place], [place] [address] (Wo rk) Scheduled Orders Name [...] LABORATORY Neutr Abs (ANC) 3.96 1.70 - [facility] 6.10 [facility] x10(3)/[facility] LABORATORY Lymphocytes % 16.3 % [facility] LABORATORY Lymphocytes Abs 0.9 0.9 - 3.2 [facility] x10(3)/[facility] LABORATORY Monocytes % 10.0 % [facility] LABORATORY Monocyte Abs 0.6 0.3 - 0.9 [facility] x10(3)/[facility] LABORATORY Eosinophils % 0.5 % [facility] LABORATORY Eosinophils Abs 0.0 0.0 - 0.4 [facility] x10(3)/[facility] LABORATORY Basophils % 0.5 % [facility] LABORATORY Basophils Abs 0.0 0.0 - 0.1 [facility] x10(3)/[facility] LABORATORY Immature Gran % 0.90 % [...] Organization Address City/State/[place] [address] (ABNORMAL) Hemogram (01/30/2022 2:12 PM EDT) Analysis Performed At Patho logist Time Signature WBC 5.5 4.0 - 9.5 [facility] x10(3)/[facility] LABORATORY RBC 4.30 (L) 4.58 - [facility] 5.54 [facility] x10(6)/[facility] LABORATORY Hemoglobin 12.7 (L) 13.7 - [facility] 16.5 g/dL [facility] LABOR[facility]ORY Hematocrit 39.4 (L) 40.5 - [facility] 48.5 % [facility]OR[facility] MCV 91.6 82.9 - [facility] 93.1 [facility] LABORATORY MCH 29.5 27.5 - [facility] 32.1 pg [facility] LABORATORY MCHC 32.2 32.0 - [facility] 35.7 g/dL [facility] LABOR[facility] Platelets 172 145 - 357 [facility] x10(3)/[facility] LABORATORY RDWSD 54.5 (H) 36.0 - [facility] 45.0 [facility] LABORATORY RDWCV 16.4 (H) 11.4 - [facility] 13.8 % [facility] LABORATORY MPV 9.2 7.6 - 12.9 [facility] LABORATORY nRBC % Auto 0.0 % [facility] LABORATORY nRBC Abs Auto 0.000 0.000 - [facility] 0.000 [facility] x10(3)/[facility] LABORATORY Specimen Anatomical Collection Method Collection Time Receive d Time (Source) Location / / Volume Laterality Blood 01/30/2022 2:12 PM 2 2:37 EDT PM EDT Resulting Agency Comment Spec In Lab Eddi Elizabeth Jr., MD HEMATOLOGY ORDERABLES Performing Organization Address City/State/[place] [address] (ABNORMAL) Basic Metabolic Panel (non-fasting) (01/30/2022 2:12 PM EDT) P athologist Signature Glucose Lvl 163 65 - 199 [facility] mg/dL [facility] Comment: Diabetes: >=200 mg/dL plus symp toms BUN 30 (H) 10 - 20 mg/dL [facility] LABOR[facility]ORY Creatinine 1.47 0.80 - 1.50 mg/dL [facility] LABORATORY Sodium 140 [...] Organization Address City/State/[place] [address] POCT Glucose (01/30/2022 1:41 PM EDT) athologist Signature POC Glucose 148 65 - 199 [facility] mg/dL [facility] LABOR[facility]ORY Comment: Supplemental ranges: <140 mg/dL before meals <180 mg/dL all other times of the day Specimen Anatomical Collection Method Collection Time Receive d Time (Source) Location / / Volume Laterality Blood 01/30/2022 1:41 PM 1:41 EDT PM EDT Vitaliy Sandra Nobles MD POINT OF CARE TEST ORDERABLE S Performing Organization Address City/[facility]/ZIP Code Phon e Number [address] POCT Glucose (01/30/2022 10:48 AM EDT) P athologist Signature POC Glucose 193 65 - 199 [facility] mg/dL [facility] LABORATORY Comment: Supplemental ranges: <140 mg/dL before meals <180 mg/dL all other times of the day Specimen Anatomical Collection Method Collection Time Receive d Time (Source) Location / / Volume Laterality Blood 01/30/2022 10:48 01/30/2022 AM EDT 10:48 AM EDT Vitaliy Sandra Nobles MD POINT OF CARE TEST ORDERABLE S Performing Organization Address [facility] [place] [address] EKG 12 Lead (01/30/2022 10:33 AM EDT) Component Value Ref Range Test Analysis Performed Pathologis t Method Time At Signature Ventricular rate 64 BPM MUSE SYSTEM Atrial Rate 64 BPM MUSE SYSTEM P-R Interval 162 ms MUSE SYSTEM QRS Duration 94 ms MUSE SYSTEM Q-T Interval 422 ms MUSE SYSTEM QTC Calculated 435 ms MUSE SYSTEM (Bezet) Calculated P [place] 41 degrees MUSE SYSTEM Calculated R [place] -27 degrees MUSE SYSTEM Calculated T [place] 104 degrees MUSE SYSTEM INTERPRETATION Normal sinus rhythm MUSE SYSTEM Anterolateral infarct (cited on or before 09-DEC-2021) Abnormal ECG When compared with ECG of 10-DEC-2021 11:17, No significant change was found Confirmed by Gary Perez ([id number]) on 01/30/2022 5:57:5 2 PM Specimen Anatomical [...] Laterality Volume Narrative 01/30/2022 2:09 PM EDT ?[facility] ? Cardiac Cathete rization/Intervention Report ? Patient Name: Don Fatima. ? Procedure Date: 01/30/2022 ? A #: [id number] ? Primary Physician: Nobles, Vitaliy P ? Case #: [id number] ? File Name: [id number] ? Catheterization Order Number: [id number] ? [facility] ? Final Report [place], [place] ? Patient Name: ? Don Mccollum. Stewa rt ? ID#: ?[id number] ? : ?1945 ? Procedure Date: ? [...] ?designated as ASA Class III. Th e [facility] clinical frailty scale is 5: Mildly ?Frail. [...] for ?the labeling machine operator visit is stable kn own CAD. Chest pain symptom assessment ?was: Typical Angina. ? Technique: ?A 6 SLFr sheath was inserted in the right radial artery utilizing the ?Seldinger technique. The right coronary artery was injected utilizing a ?IR 2.0 catheter. Coronary stent insertion was performed and the equipment ?utilized will be described in [facility] intervention summary section. 9,000 ?units of heparin [...] an d a 3.5 Fr [place] [facility] [address] ??20 Mhz ?using [...] A premounted 2.00 x 26 mm Hardeep Prewitt (TUCKER) ? was deployed wi a maximum [...] Wedelivered along 2.0 x 26 mm HARDEEP Prewitt ? TUCKER stent and p ositioned it [...] dose administered prior to arrival in the labeling machine operator. ?Recommended anti-platelet/anti- thrombotic regimen: ?Continue [...] using a 2.0 x 26 mm HARDEEP Prewitt TUCKER stent. ?This completes the revasculariz ation [...] Procedure Note Vitaliy Nobles MD - 03/06/2022 [facility] Cardiac Catheterization/Intervention Re port Patient Name: Don Fatima Procedure Date: 01/30/2022 A #: [id number] Primary Physician: Vitaliy Nobles Case #: [id number] File Name: [id number] Catheterization Order Number: [id number] [facility] Final Report [place], [place] Patient Name: Don Fatima ID#: [...] for the labeling machine operator visit is stable known CAD. [...] catheter and a 3.5 Fr [place] [facility] [employer] 20 Mhz using [...] atmospheres. A premounted 2.00 x 26 mm [place] Prewitt (TUCKER) was deployed with a maximum inflation [...] along 2. 0 x 26 mm HARDEEP Prewitt TUCKER stent and positioned it at the [...] administered prior t o arrival in the labeling machine operator. Recommended anti-platelet/anti-thrombot ic regimen: Continue [...] this regimen. Consult D [facility] Interventional Cardiology for questions. The [...] using a 2.0 x 26 mm HARDEEP Prewitt TUCKER stent. This completes the revascularization of [...] POC Glucose 212 (H) 65 - 199 [facility] mg/dL [facility] LAB[facility]ORY Comment: Supplemental ranges: <140 mg/dL before meals <180 mg/dL all other times of the day Specimen Anatomical Collection Method Collection Time Receive d Time (Source) Location / / Volume Laterality Blood 01/30/2022 9:04 AM 2 9:04 EDT AM EDT Vitaliy Nobles MD POINT OF CARE TEST ORDERABLE S Performing Organization Address City/State/ZIP [place] [address] (ABNORMAL) POCT Glucose (01/30/2022 8:10 AM EDT) athologist Signature POC Glucose 224 (H) 65 - 199 [facility] mg/dL [facility] Comment: Supplemental ranges: <140 mg/dL before meals <180 mg/dL all other times of the day Specimen Anatomical Collection Method Collection Time Receive d Time (Source) Location / / Volume Laterality Blood 01/30/2022 8:10 AM 2 8:10 EDT AM EDT Vitaliy Nobles MD POINT OF CARE TEST ORDERABLE S Performing Organization Address City/State/ZIP [place] [address] documented in this encounter Visit Diagnoses Diagnosis ASCVD (arteriosclerotic cardiovascular d isease) Unspecified cardiovascular disease 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 ASHD (arteriosclerotic heart disease) Coronary atherosclerosis of unspecified type of vessel, campo or graft ASCVD (arteriosclerotic cardiovascular d isease) Unspecified cardiovascular disease documented in this encounter Admitting Diagnoses Diagnosis CAD (coronary artery disease) Coronary atherosclerosis of unspecified type of vessel, campo or graft documented in this encounter Administered [...] Procedure), Routine niCARdipine (Cardene) (100 mcg/mL) dilution (AIRCRAFT HYDRAULIC EQUIPMENT MECHANIC) (CANCELED ) 0927 (Given - Provider: [...] (Intra-Procedure) documented in this encounter Care Teams Paintings Restorer Relationship Specialty Start Date End Date Lovely Vicente MD PCP - General 04/16/[address] [place] [address] documented as of this encounter
--- OUTSIDE RECORDS SUMMARY | 2022-05-11 08:41 | XMS_ITS | Encounter Summary ---
:1945 Author Organization [facility] [place] [address] Care Team Providers Name Role Phone Lovely Vicente MD Primary Care Provider Encounter Details Date Type Department Care Team Description 12/24/2021 Orders Only Appraiser Real Estate Zulma Finch ASCVD (art eriosclerotic [facility] cardiovascular disease) [facility] [place] [address] [place], [place] [phone] (Work) [phone] Social History Tobacco Use Types Packs/Day Years [...] MD [facility] [address] [place] [address] (Wo rk) 05/28/2022 Laboratory Appointment Lab 05/28/2022 Office Visit Cardiology Zulma Dolan [place] [facility] [place] [address] Liz Poole PA [facility] [place] [address] 06/10/2022 Office Visit Dermatology Laura Scherer MD [facility] [address] [place], [place] [address] (Wo rk) documented as of this encounter Visit Diagnoses Diagnosis ASCVD (arteriosclerotic cardiovascular d isease) Unspecified cardiovascular disease documented in this encounter Care Teams Power Shovel Operator Relationship Specialty Start Date End Date Lovely Vicente MD PCP - General 04/16/[address] [place] [address] documented as of this encounter
--- OUTSIDE RECORDS SUMMARY | 2022-05-11 08:41 | XMS_ITS | Encounter Summary ---
:1945 Author Organization [facility] [place] [address] Care Team Providers Name Role Phone Lovely Vicente MD Primary Care Provider Reason for Visit Reason Onset Date Comments Medication Refill 12/12/2021 Torsemide Encounter Details Date Type Department Care Team Description 12/12/2021 Refill Cardiology at [facility] Janneth Padilla, Medication Refill [facility] STEPHANIE (Torsemide) [place] [address] CARDIOLOGY DEPT. [place], [place] [address] (Wo rk) Social History [...] MD [facility] [place] [address] [place], [place] [address] (Wo rk) 05/28/2022 Laboratory Appointment Lab 05/28/2022 Office Visit Cardiology Zulma Dolan MD [facility] [place] [address] Liz Poole PA [facility] [place] [address] 06/10/2022 Office Visit Dermatology Laura Scherer MD [facility] ER [address] [place], [place] [address] (Wo rk) documented as of this encounter Visit Diagnoses Diagnosis Chronic systolic heart failure documented in this encounter Care Teams Cable Coverer Relationship Specialty Start Date End Date Lovely Vicente MD PCP - General 04/16/[address] [place] [address] documented as of this encounter
--- OUTSIDE RECORDS SUMMARY | 2022-05-11 08:41 | XMS_ITS | Encounter Summary ---
:1945 Author Organization [facility] [place] [address] Care Team Providers Name Role Phone Lovely Vicente MD Primary Care Provider Encounter Details Date Type Department Care Team Description 12/15/2021 Telephone Cardiology at [facility] Barbara Mera, [place] [address] Social History Tobacco Use Types Packs/Day [...] Cardiology Zulma Dolan MD [facility] [place], [place] [address] (Wo rk) 05/28/2022 Laboratory Appointment Lab 05/28/2022 Office Visit Cardiology Zulma Dolan MD [facility] [place] [address] Liz Poole PA [facility] [place] [address] 06/10/2022 Office Visit Dermatology Laura Scherer MD [facility] [address] [place], [place] [address] (Wo rk) documented as of this encounter Visit Diagnoses Not on filedocumented in this encounter Care Teams Cork Wirer Relationship Specialty Start Date End Date Lovely Vicente MD PCP - General 04/16/15 [facility] [address] [place] [address] documented as of this encounter
--- OUTSIDE RECORDS SUMMARY | 2022-05-11 08:41 | XMS_ITS | Encounter Summary ---
:1945 Author Organization [facility] [place] [address] Care Team Providers Name Role Phone Lovely Vicente MD Primary Care Provider Encounter Details Date Type Department Care Team Description 12/12/2021 Telephone Cardiology at [facility] [place] [address] Social History Tobacco Use Types Packs/Day [...] - 12/12/2021 11:36 AM EDT RTC to [place] regarding pharmacists questions as to whether the [...] MD [facility] [address] [place] [address] (Wo rk) 05/28/2022 Laboratory Appointment Lab 05/28/2022 Office Visit Cardiology Zulma Dolan MD [facility] [place] [address] Liz Poole PA [facility] [place] [address] 06/10/2022 Office Visit Dermatology Laura Scherer MD [facility] [address], [place] [address] (Wo rk) documented as of this encounter Visit Diagnoses Not on filedocumented in this encounter Care Teams Engineering Technician Relationship Specialty Start Date End Date Lovely Vicente MD PCP - General 04/16/[address] [place] [address] documented as of this encounter
--- OUTSIDE RECORDS SUMMARY | 2022-05-11 08:41 | XMS_ITS | Encounter Summary ---
:1945 Author Organization [facility] [place] [address] Care Team Providers Name Role Phone Lovely Vicente MD Primary Care Provider Encounter Details Date Type Department Care Team Description 01/28/2022 Orders Only Proteomics Scientist Zulma Finch ASCVD (art eriosclerotic [facility] cardiovascular disease) [facility] [place] [address] [place], [place] [phone] (Work) [phone] Social History Tobacco Use Types Packs/Day Years [...] Dolan MD [facility] [address] [place] [address] (Wo rk) 05/28/2022 Laboratory Appointment Lab 05/28/2022 Office Visit Cardiology Zulma Dolan MD [facility] [place] [address] Liz Poole PA [facility] [place] [address] 06/10/2022 Office Visit Dermatology Laura Scherer MD [facility] [address] [place], [place] [address] (Wo rk) documented as of this encounter Results (ABNORMAL) Basic Metabolic Panel (non-fasting) (01/30/2022 7:19 AM EDT) athologist Signature Glucose Lvl 237 (H) 65 - 199 [facility] mg/dL [facility] [...] - 107 mmol/L [facility] CO2 30 22 - 31 mmol/L [facility] Anion Gap 11 5 - 15 mmol/L [facility] Calcium 9.5 8.5 - 10.5 mg/dL [facility] Estimated GFR 50 (L) >=60 mL/min/1.73 m?? [facility] [...] Organization Address City/State/[place] [address] documented in this encounter Visit Diagnoses Diagnosis ASCVD (arteriosclerotic cardiovascular d isease) Unspecified cardiovascular disease documented in this encounter Care Teams Mail List Librarian Relationship Specialty Start Date End Date Lovely Vicente MD PCP - General 04/16/[address] [place] [address] documented as of this encounter
--- OUTSIDE RECORDS SUMMARY | 2022-05-11 08:41 | XMS_ITS | Encounter Summary ---
:1945 Author Organization [facility] [place] [address] Care Team Providers Name Role Phone Lovely Vicente MD Primary Care Provider Encounter Details Date Type Department Care Team Description 12/24/2021 Telephone Public Health at [facility] [address] Social History Tobacco Use Types Packs/Day [...] Zulma Dolan MD [facility] [address] [place], [place] [address] (Wo rk) 05/28/2022 Laboratory Appointment Lab 05/28/2022 Office Visit Cardiology Zulma Dolan MD [facility] [place] [address] Liz Poole PA [facility] [place] [address] 06/10/2022 Office Visit Dermatology Laura Scherer MD [facility] ER [address] [place], [place] [address] (Wo rk) documented as of this encounter Visit Diagnoses Not on filedocumented in this encounter Care Teams District Plant Engineer Relationship Specialty Start Date End Date Lovely Vicente MD PCP - General 04/16/[address] [place] [address] documented as of this encounter
--- OUTSIDE RECORDS SUMMARY | 2022-05-11 08:41 | XMS_ITS | Encounter Summary ---
:1945 [place] [address] Care Team Providers Name Role Phone Lovely Vicente MD Primary Care Provider Encounter Details Date Type Department Care Team Description 12/25/2021 Office Visit Cardiology at [facility] Liz Poole, Chronic systolic heart [facility] [place] [address] Cardiology Dept [phone] [place], [place] [address] Social History Tobacco Use Types [facility], transferred from [facility], [...] mg PO daily in place of Lasix. [place] is new for him and he will [...] changed: how much to take Changed by: STEPAHNIE Pratt 20 mg Quantity: 30 tablet Refills: [...] present. 07/07/2019 - 07/21/2019 Zio Patch Power Reactor Supervisor The patient had a minimum heart [...] hyperkalemia 4.9 today 6. Post-op atrial fibrillation [id number] (CHF, HTN, DM, vascular disease, thromboembolism) Eliquis 7. PAD 08/06/2017: Right 1st, 2nd, 3rd toe amputation 08/11/2017: Left??femoral arterial access, RLE??angiogram, Balloon angioplasty of R PT 10/25/2017: right popliteal-pedal bypass at [facility] 8. Hypothyrodism S/p thyroidectomy for goiter Levothyroxine ?? Plan: 1 month follow up with labs Liz Poole PA-C 12/25/2021 documented in this encounter Plan of Treatment Upcoming Encounters Date Type Specialty Care Team Description 05/28/2022 Appointment Cardiology Zulma Dolan MD [facility] [address] [place], [place] [address] (Wo rk) 05/28/2022 Laboratory Appointment Lab 05/28/2022 Office Visit Cardiology Zulma Dolan MD [facility] [place] [address] Liz Poole PA [facility] [place] [address] 06/10/2022 Office Visit Dermatology Laura Scherer MD [facility] ER [address] [place], [place] [address] (Mikayla alcaraz) documented as of this encounter Results (ABNORMAL) pro-Brain Natriuretic Peptide (12/25/2021 7:46 AM EDT) athologist Signature ProBNP 1,380 (H) <=124 [facility] Specimen Anatomical Collection Method Collection Time Receive d Time (Source) Location / / Volume Laterality Blood 12/25/2021 7:46 AM 8:01 EDT AM EDT Resulting Agency Comment Spec In Lab Zulma Plunkett MD CHEMISTRY ORDERABLES Performing Organization Address City/State/ZIP [place] [address] (ABNORMAL) Basic Metabolic Panel (non-fasting) (12/25/2021 7:46 AM EDT) athologist Signature Glucose Lvl 272 (H) 65 - 199 [facility] mg/dL [facility] Comment: Diabetes: >=200 mg/dL plus symp toms BUN 62 (H) 10 - 20 mg/dL [facility] Creatinine 1.81 (H) 0.80 - [...] mmol/L [facility] Calcium 9.4 8.5 - 10.5 [...] Organization Address City/State/ZIP [place] [address] documented in this encounter Visit Diagnoses Diagnosis Chronic systolic heart failure documented in this encounter Care Teams Continuing Education Director Relationship Specialty Start Date End Date Lovely Vicente MD PCP - General 04/16/[address] [place] [address] documented as of this encounter
--- OUTSIDE RECORDS SUMMARY | 2022-05-11 08:41 | XMS_ITS | Encounter Summary ---
:1945 Author Organization [facility] [place] [address] Care Team Providers Name Role Phone Lovely Vicente MD Primary Care Provider Reason for Referral Consultation (Routine) - Closed Specialty Diagnoses / Referred By Contact Referred To Contact Procedures Cardiac Rehabilitation Diagnoses Acute HFrEF (heart failure with reduced ejection fraction) Janneth Padilla, Cardiac Rehab, [address] [place], [place] CARDIOLOGY [place]PT. [address] [place] [address] Referral ID Status Reason Start Date Expiration Date Visits V isits Requested Authorized [id number] Closed Consult, 12/12/2021 12/12/2022 36 36 Test & Treat Reason for Visit Auth/Cert Specialty Diagnoses / Procedures Referred By Contact Refer red To Contact Diagnoses NSTEMI Procedures emerg ipi Referral ID Status Reason Start Date Expiration Date Visits Requ ested Visits Authorized [id number] 1 1 Encounter Details Date Type Department Care Team Description 12/08/2021 - Hospital Encounter Intermediate Cardiac Iker Cuevas MD [facility] [place] [address] Non-ST elevation myocardial infarction ( NSTEMI); 12/12/2021 Care Unit Ifeanyi Rene MD [facility] [place] [address] ST elevation myocardial infarction (STEM I), unspecified artery; [facility] Acute HFr EF (heart failure with reduced ejection fraction) [place] [address] Social History Tobacco Use Types Packs/Day Years [...] out patient Inpatient Provider Contact Information: MD iMgdalia Peter PA-C Kelly LaFlamme PA-C Cardiovascular Medicine [phone] Discharge Diagnoses (Hospital Problems) and Secondary Diagnoses [...] 3.75 guiding catheter and a 3.5 Fr [facility] [place] 20 Mhz using Manual pullback. Imaging was successful. Image quality was good. The ostial LCX showed moderate diffuse atherosclerotic plaque with scattered three quadrant calcification. Measurements were performed after pre-dilation. Post Intervention: The stent was well expanded and apposed. Intravascular Ultrasound was performed in the distal LM using a 7 Fr EBU 3.75 guiding catheter and a 3.5 Fr [facility] [place] 20 Mhz using Manual pullback. Imaging was [...] mg PO daily in place of lasix. Bly is new for him and he will have a BMP checked on 12/[address] Cuevas spoke with the patient's and told her that him drinking too much water and diet drinks did not cause his OK. This is what his thought was the [...] to be ~$24/mo; affordable per patient. Post [facility] he was started on Eliquis. [...] appointments: During 8am-5pm Wednesday through Wednesday call [phone] to speak with a nurse in the cardiology clinic All other times call [phone] and ask to speak to the ambulance attendant donor specialist. Return to work: One week Driving: No driving for 48 hours after catheterization. Follow up Appointments: PCP Lovely Vicente MD [phone] to see patient at the end of December for annual check up. Patient to see Dr. Lorenzana at 1120 am at December 19 for a post hospital check up. Claims Customer Service Representative Dr. De Oliveira to see you in [facility]. Left a message for office to set a date and time. Please call [phone] Nobles to see the patient for a same day cath in 2-3 weeks from now. Office to call with a date and time. For questions please call [phone] Home oxygen therapy: N/A Arrangements for VNA/home care: none Future Appointments and Orders Future Orders Complete By Expires Basic Metabolic Panel (non-fasting) [LAB15 Custom] 12/19/2021 (Approximate) 12/12/2022 Process Instructions: INCLUDES: Calcium, BUN, Creat, GFR, Glucose, Lytes Scheduling Instructions: Comments: Questions: Referral to Cardiac Rehab [MKW500 Custom] As directed Process Instructions: If no [...] appointments: During 8am-5pm Wednesday through Wednesday call [phone] to speak with a nurse in the cardiology clinic All other times call [phone] and ask to speak to the ambulance attendant donor specialist. Return to work: One week Driving: No driving for 48 hours after catheterization. Follow up Appointments: PCP Lovely Vicente MD [phone] to see patient at the end of December for annual check up. Patient to see Dr. Lorenzana at 1120 am at December 19 for a post hospital check up. Claims Customer Service Representative Dr. De Oliveira to see you in [facility]. Left a message for office to set a date and time. Please call [phone] Nobles to see the patient for a same day cath in 2-3 weeks from now. Office to call with a date and time. For questions please call [phone] Home oxygen therapy: N/A Arrangements for VNA/home [...] Progress Note Patient Name: Don Fatima Service: ENGLISH AND READING INSTRUCTOR / PA Responsible Attending: Ifeanyi Truong [...] patent THOMPSON-LAD and RPDA 95% lesion. Underwent TUCKRE to prox LCX with plans for staged procedure to RPDA as outpatient. 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 Tolerated procedure well. Home today at [...] TROPONINT 1.13* 0.92* 0.89* Pertinent Radiographic/Diagnostic Results: R/[facility] 12/10/21 Hemodynamics: Right Heart Pressures [...] with MD Janneth Neville PA 12/12/2021 Pager [phone] Associated attestation - Ifeanyi Truong MD - [facility] Diabetes Management Pager [phone] 20 minutes of this 35 minute visit [...] Progress Note Patient Name: Don Fatima Service: ENGLISH AND READING INSTRUCTOR / PA Responsible Attending: Iker Cuevas [...] + trop. Known CAD with hx of OK and CABG. DM. MARIA VICTORIA.ICM. ??? 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 Tolerated procedure well. Review of Systems: [...] TROPONINT 1.13* 0.92* 0.89* Pertinent Radiographic/Diagnostic Results: R/[facility] 12/10/21 Hemodynamics: Right Heart Pressures [...] and answered his questions. Iker Cuevas MD [facility] Total time spent on review of records prior to visit, face to face time with patient during visit, documentation, and coordination of care with other clinicians: 25 minutes. . Iker Cuevas MD - 12/10/2021 12:30 PM EDT Images from the original note were not included. Inpatient Cardiology Progress Note Patient Name: Don Fatima Service: ENGLISH AND READING INSTRUCTOR / PA Responsible Attending: Iker Cuevas MD Reason for continued hospitalization: NSTEMI- s/p R/LHC- PCW 27, occluded SVGs s/p PCI to ostial LCX ADHF and hypoxia- IV diuresis Active Problems: Active Hospital Problems Diagnosis ??? Admitted with 2 days of sob, hypoxemia, and + trop. Known CAD with hx of OK and CABG. DM. MARIA VICTORIA.ICM. ??? 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 Tolerated procedure well. Review of Systems: [...] ??? heparin (porcine) infusion 1,600 Units/hr (12/09/21 5091) PRN Meds:ipratropium-albuteroL, senna-docusate, bisacodyL, sodium chloride 0.9 [...] TROPONINT 1.13* 0.92* 0.89* Pertinent Radiographic/Diagnostic Results: R/[facility] 12/10/21 Hemodynamics: Right Heart Pressures [...] Discussed with MD Migdalia Peter PA-C Pager #[phone] 12/10/2021 Cardiology Attending Note I have seen [...] updated and given pictures. Iker Cuevas MD [facility] Total time spent on review of records prior to visit, face to face time with patient during visit, documentation, and coordination of care with other clinicians: 35 minutes. Iker Cuevas MD - 12/09/2021 7:28 AM EDT Images from the original note were not included. Inpatient Cardiology Progress Note Patient Name: Don Fatima Service: ENGLISH AND READING INSTRUCTOR / PA Responsible Attending: Iker Cuevas MD Reason for continued hospitalization: NSTEMI- awaiting R/LHC ADHF and hypoxia- IV diuresis, R/LHC Active Problems: Active Hospital Problems Diagnosis ??? Admitted with 2 days of sob, hypoxemia, and + trop. Known CAD with hx of OK and CABG. DM. MARIA VICTORIA.ICM. ??? ASHD [...] ??? heparin (porcine) infusion 1,600 Units/hr (12/09/21 2202) PRN Meds:ipratropium-albuteroL, sodium chloride 0.9 % (flush), [...] Discussed with MD Migdalia Peter PA-C Pager #[phone] 12/09/2021 Cardiology Attending Note I have seen [...] < 70 -CPAP tonight Iker Cuevas MD [facility] Total time spent on review [...] + trop. Known CAD with hx of OK and CABG. DM. MRAIA VICTORIA.ICM. ??? ASHD (arteriosclerotic heart disease) ??? [...] SETUP performed by Manny Mcknight MD at [facility] OR ??? PRO AMPUTATION FOOT, TRANSMETATARSAL Right 08/09/2017 AMPUTATION, TRANSMETATARSAL (WRVU 12.71) performed by Yonathan Smith MD at [facility] OR ??? PRO CABG, ARTERIAL, SINGLE N/A 07/07/2017 @CABG, USING ARTERIAL GRAFT;SINGLE ARTERIAL GRAFT (WRVU 33.75) performed by Yuan Retana MD at [facility] OR ??? PRO CABG, ARTERY-VEIN, TWO N/A 07/07/2017 @CABG, TWO VENOUS GRAFTS & ARTERIAL GRAFT (WRVU 7.93) performed by Yuan Retana MD at [facility] OR ??? PRO COLONOSCOPY, REMV LESN, SNARE 01/16/2014 COLONOSCOPY, POLYPECTOMY, REMOVAL LESION BY SNARE performed by Nohemi Jaimes MD at [facility] ENDOSCOPY ??? PRO DRESSING CHANGE UNDER ANESTHESIA Right 08/11/2017 (MSURG) DRESSING CHANGE (FOR OTHER THAN IVAN) UNDER ANES. (WRVU 0.86) performed by Lamar Smith MD at [facility] OR ??? PRO ENDOSCOPY W/VIDEO-ASST VEIN HARVEST, CABG Right 07/07/2017 ENDOSCOPIC HARVEST VEIN(S) FOR CABG (WRVU 0.31) performed by Yuan Retana MD at [facility] OR ??? PRO THYROIDECTOMY 03/28/2013 THYROIDECTOMY, TOTAL OR COMPLETE performed by Manny Mcknight MD at [facility] MAIN OR Significant Family History: Family History [...] Monitor for ADRs. Trend troponins. Admission EKG. [facility] 12/09; consented. TTE. Telemetry monitoring, [...] code #Diet-carb control; n.p.o. after midnight for [facility] #DVT prophy- heparin infusion #GI prophy- PPI Discussed with MD Morgan Peter PA-C APP2 pager [phone] 12/08/2021 Cardiology Attending Note I have seen [...] is type 1 due to graft or [place] coronary stenosis vs acute injury from CHF. 3. PAF: currrently in NSR. Have replaced warfarin with heparin 4. PAD: stable 5. DM: stable 6. CKD: will monitor and minimize contrast. Pt very appreciative of Dr. Yuan Retana's care in 2018. Will let him know patient is here. Iker Cuevas MD [facility] documented in this encounter Miscellaneous [...] Concerns:non concerns, 2 story home with 4 MAKRIE. Current Functional Ability: Independent DME used at home: walker - standard, cane - straight DME Needed at Discharge: None Patient is insured through: Primary Insurance: MEDICARE Payor: MEDICARE / Plan: MEDICARE PART A & B / Product Type: *No Product type* / Secondary Insurance: [employer] [place] Prescription Coverage: Yes This plan was [...] cath without complications. Migdalia Parker PA-C Pager #[phone] 12/10/2021 Initial Assessments - Nick Georges RN [...] COVID test: Lab Results Component Value Date [id number] Not Detected 12/08/2021 Past medical History: Past [...] [facility] must abide by [place] law. The hierarchy [...] - standard, cane - straight Home Address: [address] [place] [address] [place] [id number] Social & Family Supports: All names listed below confirmed with patient as current and correct Extended Emergency Contact Information Primary Emergency Contact: Kisha Fatima Address: [address] [place] [address] [place] [address] [facility] Mobile Relation: Spouse Secondary Emergency Contact: Elba Swenson Address: [address] [place] Relation: Child Current Care Provided [...] Type: *No Product type* / Secondary Insurance: [employer] [facility] Prescription Coverage: Yes Preferred Pharmacy: [facility] [id number] [address] [address] - [address] [address] [place] Status: Patient is a : unable to assess Primary Care Provider: Lovely Vicente MD [phone] Patient/Caregiver Goals of Treatment: Get out of here Potential Needs for Transition of Care: none Agency Referrals: none patient has used [employer] [facility] in the past Transportation: no concerns Transportation Anticipated: family or friend will provide Concerns to be Addressed: patient refuses services, discharge planning Assessment: Patient is admitted to [facility] Service pager [phone] for 76 y.o.??male??with h/o??CAD s/p 3vCABG (THOMPSON-LAD, [...] status on current unit. Nick Georges RN pharmacy benefit manager, Office of Care Management Pager: [phone] Brief Op Note - Vitaliy Nobles MD - 12/10/2021 8:31 AM EDT Images from the original note were not included. [facility] [place] [address] CORONARY ANGIOGRAM AND PERCUTANEOUS CORONARY INTERVENTION REPORT Patient: Don Fatima : 1945 MR number: [id number] Date of Service: 12/10/2021 Grain Cleaner: Vitaliy Nobles MD Fellow: Rancho Woods MD [...] review of oysterman diabetes care. Diabetes History: Don Fatima has had diabetes for 10 years. He has been on insulin for the last several years andis managed by his PCP. Lives in [place], [place] with his . States that he [...] Hold] heparin (porcine) infusion 1,600 Units/hr (12/09/21 5920) PRN: [SEP Hold] ipratropium-albuteroL, [SEP Hold] senna-docusate, [...] provide care for your patient Desirae Shaper [facility] Endocrinology Pager [phone] 70 minutes of this [...] + trop. Known CAD with hx of OK and CABG. DM. MARIA VICTORIA.ICM. ??? ASHD [...] for further details. STEPHANIE Rebolledo 12/08/2021 Pager [phone] documented in this encounter Plan of Treatment Upcoming Encounters Date Type Specialty Care Team Description 05/28/2022 Appointment Cardiology Zulma Dolan MD [facility] [place], [place] [address] (Wo rk) 05/28/2022 Laboratory Appointment Lab 05/28/2022 Office Visit Cardiology Zulma Dolan MD [facility] [place] [address] Liz Poole PA [facility] [place] [address] 06/10/2022 Office Visit Dermatology Laura Scherer MD [facility] [address] [place], [place] [address] (Wo rk) Scheduled Referrals Name [...] 215 (H) 65 - 199 [facility] mg/dL [facility] LABORATORY Comment: Supplemental ranges: <140 mg/dL before meals <180 mg/dL all other times of the day Specimen Anatomical Collection Method Collection Time Receive d Time (Source) Location / / Volume Laterality Blood 12/12/2021 7:42 AM 7:42 EDT AM EDT Ifeanyi Truong MD POINT OF CARE TEST ORDERABLE S Performing Organization Address City/State/Z[place] [address] (ABNORMAL) Differential, Automated (12/12/2021 4:51 AM EDT) athologist Signature Neutrophils % 75.4 % [facility] LABORATORY Neutr Abs (ANC) 5.95 1.70 - [facility] 6.10 [facility] x10(3)/[facility] LABORATORY Lymphocytes % 12.2 % [facility] LABORATORY Lymphocytes Abs 1.0 0.9 - 3.2 [facility] x10(3)/[facility] LABORATORY Monocytes % 9.5 % [facility] LABORATORY Monocyte Abs 0.8 0.3 - 0.9 [facility] x10(3)/[facility] LABORATORY Eosinophils % 1.8 % [facility] LABORATORY Eosinophils Abs 0.1 0.0 - 0.4 [facility] x10(3)/[facility] LABORATORY Basophils % 0.5 % [facility] LABORATORY Basophils Abs 0.0 0.0 - 0.1 [facility] x10(3)/[facility] LABORATORY Immature Gran % 0.60 [...] Organization Address City/State/[place] [address] (ABNORMAL) Hemogram (12/12/2021 4:51 AM EDT) Analysis Performed At Patho logist Time Signature WBC 7.9 4.0 - 9.5 [facility] x10(3)/[facility] LABORATORY RBC 4.19 (L) 4.58 - [facility] 5.54 [facility] x10(6)/[facility] LABORATORY Hemoglobin 12.1 (L) 13.7 - [facility] g/dL [facility] LABORATORY Hematocrit 36.7 (L) 40.5 - [facility] 48.5 % [facility] LABORATORY MCV 87.6 82.9 - [facility] 93.[address] [facility] LABORATORY MCH 28.9 27.5 - [facility] 32.[address] [facility] LABORATORY MCHC 33.0 32.0 - [facility] 35.7 g/dL [facility] LABORATORY Platelets 231 145 - 357 [facility] x10(3)/[facility] LABORATORY RDWSD 47.2 (H) 36.0 - [facility] 45.0 [facility] LABORATORY RDWCV 14.6 (H) 11.4 - [facility] 13.8 % [facility] LABORATORY MPV 9.5 7.6 - 12.9 [facility] LABORATORY nRBC % Auto 0.0 % [facility] LABORATORY nRBC Abs Auto 0.000 0.000 - [facility]AN 0.000 [facility] x10(3)/[facility] LABORATORY Specimen Anatomical Collection Method Collection Time Receive d Time (Source) Location / / Volume Laterality Blood 12/12/2021 4:51 AM 2 5:06 EDT AM EDT Resulting Agency Comment Spec In Lab Bijan Sun MD HEMATOLOGY ORDERABLES Performing Organization Address City/[facility]/[place] [address] (ABNORMAL) Prothrombin Time (12/12/2021 4:51 AM EDT) P athologist Signature PT 14.9 (H) 9.4 - 12.5 [facility] LABORATORY INR 1.3 [facility] [...] Cuevas MD HEMATOLOGY ORDERABLES Performing Organization Address City/[facility]/[place] [address] (ABNORMAL) BMP w/fasting Glucose (12/12/2021 4:51 AM EDT) athologist Signature Glucose 152 (H) 65 - 99 [facility] Fasting mg/dL [facility] [...] of Diabetes Mellitus, Position Statement from the [place] [employer]. ??Diabete s Care, Volume 33, [...] Organization Address City/State/[place] [address] Magnesium (12/12/2021 4:51 AM EDT) P athologist Signature Magnesium 1.02 0.69 - 1.07 [facility] mmol/L [facility] LABORATORY Specimen Anatomical Collection Method Collection Time Receive d Time (Source) Location / / Volume Laterality Blood 12/12/2021 4:51 AM 2 5:06 EDT AM EDT Resulting Agency Comment Spec In Lab Iker Cuevas MD CHEMISTRY ORDERABLES Performing Organization Address City/[facility]/[place] [address] POCT Glucose (12/12/2021 3:43 AM EDT) P athologist Signature POC Glucose 138 65 - 199 [facility] mg/dL [facility] [...] Organization Address City/State/[place] [address] POCT Glucose (12/11/2021 11:44 [...] [facility]/[place] [address] (ABNORMAL) POCT Glucose (12/11/2021 8:12 PM EDT) athologist Signature POC Glucose 200 (H) 65 - 199 [facility] mg/dL [facility] [...] [facility]/[place] [address] (ABNORMAL) POCT Glucose (12/11/2021 [...] Organization Address City/State/[place] [address] (ABNORMAL) POCT Glucose (12/11/2021 4:00 PM EDT) P athologist Signature POC Glucose 383 (H) 65 - 199 [facility] [...] [facility]/[place] [address] (ABNORMAL) POCT Glucose (12/11/2021 12:01 PM EDT) athologist Signature POC Glucose 342 (H) 65 - 199 [facility] mg/dL [facility] [...] [facility]/[place] [address] COVID-19 PCR (12/11/2021 10:13 AM EDT) [facility] gist Method Time Signature SARS-CoV-2 Not [...] diagnosis of COVID-19 is performed using the [employer] Dianna FRIEND S-CoV-2 Assay as authorized by the FDA Emergency Use Authorization (EUA). This EUA assay is intended for In-vitro Diagnostic (IVD) use with respiratory sp ecimens such as nasopharyngeal swabs collected from individuals during the ac [place] phase of infection. This assay is performed based on the instructions for use provided by [facility] and additional guidance provided by CDC and FDA. Testing is performed in the Clinical Genomics and Advanced Technolog y Laboratory within the Department of Pathology and Laboratory Medicine at [facility], certified under the Clinical Laboratory Improvement [...] fact sheets at the following FDA website: https://www.fda.gov/medical-devices/cwzqodalmny-ogcrzcs-0611-vqrso-86-ntffdklxa- voh-ikiwbihvecegwy-papiwcp-devices/viyqq-looycrjyths-jhtg SARS-Cov-2 RNA Source ENGLISH AND READING INSTRUCTOR Swab [facility] LABORATORY Specimen (Source) Anatomical Collection Method Collection Time Re ceived Time Location / / Volume Laterality Nasopharyngeal Swab 12/11/2021 10:13 05/03/2022 AM EDT 11:16 AM EDT Comment: Symptoms->Surveillance Resulting Agency Comment Spec In Lab Iker Cuevas MD MICROBIOLOGY - GENERAL ORDER [place] Performing Organization Address City/[facility] [place] [address] POCT Glucose (12/11/2021 7:34 AM EDT) athologist Signature POC Glucose 198 65 - 199 [facility] [...] [facility]/[place] [address] (ABNORMAL) POCT Glucose (12/11/2021 5:07 AM EDT) P athologist Signature POC Glucose 208 (H) 65 - 199 [facility] mg/dL [facility] [...] [facility]/[place] [address] (ABNORMAL) Differential, Automated (12/11/2021 4:28 AM EDT) [facility] Method Time Signature Neutrophils % 79.6 % [facility] LABORATORY Neutr Abs (ANC) 7.01 (H) 1.70 - [facility] 6.10 [facility] x10(3)/[facility] L LABORATORY Lymphocytes % 9.1 % [facility] LABORATORY Lymphocytes Abs 0.8 (L) 0.9 - 3.2 [facility] x10(3)/[facility] LABORATORY Monocytes % 9.2 % [facility] LABORATORY Monocyte Abs 0.8 0.3 - 0.9 [facility] x10(3)/[facility] LABORATORY Eosinophils % 1.3 % [facility] LABORATORY Eosinophils Abs 0.1 0.0 - 0.4 [facility] x10(3)/[facility] LABORATORY Basophils % 0.5 % [facility] LABORATORY Basophils Abs 0.0 0.0 - 0.1 [facility] x10(3)/[facility] LABORATORY Immature Gran % 0.30 % [...] 0.04 x10(3)/[facility] LABORATORY Specimen Anatomical Collection Method Collection Time Receive d Time (Source) Location / / Volume Laterality Blood 12/11/2021 4:28 AM 4:37 EDT AM EDT Resulting Agency Comment Spec In Lab Bijan Sun MD HEMATOLOGY ORDERABLES Performing Organization Address City/[facility]/Z[place] [address] (ABNORMAL) Hemogram (12/11/2021 4:28 AM EDT) Analysis Performed At Patho logist Time Signature WBC 8.8 4.0 - 9.5 [facility] x10(3)/[facility] LABORATORY RBC 4.15 (L) 4.58 - [facility] 5.54 [facility] x10(6)/[facility] LABORATORY Hemoglobin 11.9 (L) 13.7 - [facility] 16.5 g/dL [facility] LABORATORY Hematocrit 36.9 (L) 40.5 - [facility] 48.5 % [facility] LABORATORY MCV 88.9 82.9 - [facility] 93.1 [facility] LABORATORY MCH 28.7 27.5 - [facility] 32.[address] [facility] LABORATORY MCHC 32.2 32.0 - [facility] 35.7 g/dL [facility] LABORATORY Platelets 211 145 - 357 [facility] x10(3)/[facility] LABORATORY RDWSD 48.3 (H) 36.0 - [facility] 45.0 [facility] LABORATORY RDWCV 14.8 (H) 11.4 - [facility] 13.8 % [facility] LABORATORY MPV 9.6 7.6 - 12.9 [facility] LABORATORY nRBC % Auto 0.0 % [facility] LABORATORY nRBC Abs Auto 0.000 0.000 - [facility] 0.000 [facility] x10(3)/[facility] LABORATORY Specimen Anatomical Collection Method Collection Time Receive d Time (Source) Location / / Volume Laterality Blood 12/11/2021 4:28 AM 2 4:37 EDT AM EDT Resulting Agency Comment Spec In Lab Bijan Sun MD HEMATOLOGY ORDERABLES Performing Organization Address City/State/[place] [address] (ABNORMAL) Prothrombin Time (12/11/2021 4:28 AM EDT) P athologist Signature PT 17.7 (H) 9.4 - 12.5 [facility] LABORATORY INR 1.6 [facility] LABORATORY [...] Organization Address City/State/[place] [address] (ABNORMAL) BMP w/fasting Glucose (12/11/2021 4:28 AM EDT) athologist Signature Glucose 207 (H) 65 - 99 [facility] Fasting mg/dL [facility] [...] of Diabetes Mellitus, Position Statement from the [place] [employer]. ??Diabete s Care, Volume 33, [...] mg/dL [facility] LABORATORY Estimated GFR 48 (L) [...] Cuevas MD CHEMISTRY ORDERABLES Performing Organization Address City/[facility] [place] [address] Magnesium (12/11/2021 4:28 AM EDT) P athologist Signature Magnesium 1.04 0.69 - 1.07 [facility]/L [facility] LABORATORY Specimen Anatomical Collection Method Collection Time Receive d Time (Source) Location / / Volume Laterality Blood 12/11/2021 4:28 AM 2 4:37 EDT AM EDT Resulting Agency Comment Spec In Lab Iker Cuevas MD CHEMISTRY ORDERABLES Performing Organization Address City/State/ZIP Code Phon e Number [place] [id number]OSPITAL LAB[address]ORY [address] POCT Glucose (12/11/2021 3:58 [...] [facility]/[place] [address] (ABNORMAL) POCT Glucose (12/10/2021 [...] [facility]/[place] [address] (ABNORMAL) POCT Glucose (12/10/2021 [...] Organization Address City/State/Z[place] [address] Potassium (12/10/2021 7:46 PM EDT) athologist Signature Potassium 4.2 3.5 - 5.0 [facility] mmol/L [facility] [...] Cuevas MD CHEMISTRY ORDERABLES Performing Organization Address City/[facility]/[place] [address] (ABNORMAL) Basic Metabolic Panel (non-fasting) (12/10/2021 6:12 PM EDT) athologist Signature Glucose Lvl 246 (H) 65 - 199 [facility] mg/dL [facility] [...] Cuevas MD CHEMISTRY ORDERABLES Performing Organization Address City/[facility]/Z[place] [address] POCT Glucose (12/10/2021 4:59 PM EDT) P athologist Signature POC Glucose 158 65 - 199 [facility] mg/dL [facility] [...] Organization Address City/State/Z[place] [address] (ABNORMAL) POCT Glucose (12/10/2021 12:43 PM EDT) P athologist Signature POC Glucose 241 (H) 65 - 199 [facility] mg/dL [facility] [...] City/State/ZIP Code Phon e Number [facility] [address] EKG 12 Lead (12/10/2021 11:17 AM EDT) Component Value Ref Range Test Analysis Performed Pathologis t Method Time At Signature Ventricular rate 62 BPM MUSE SYSTEM Atrial Rate 62 BPM MUSE SYSTEM P-R Interval 142 ms MUSE SYSTEM QRS Duration 100 ms MUSE SYSTEM Q-T Interval 434 ms MUSE SYSTEM QTC Calculated 440 ms MUSE SYSTEM (Bezet) Calculated P Caroline 34 degrees MUSE SYSTEM Calculated R Caroline -39 degrees MUSE SYSTEM Calculated T Caroline 92 degrees MUSE SYSTEM INTERPRETATION Normal sinus [...] Laterality Volume Narrative 12/10/2021 12:04 PM EDT ?[facility] ? Cardiac Cathete rization/Intervention Report ? Patient Name: Don Fatima. ? Procedure Date: 12/10/2021 ? A #: [id number] ? Primary Physician: Nobles, Vitaliy P ? Case #: [id number] ? File Name: [id number] ? Catheterization Order Number: [id number] ? [facility] ? Final Report [place], [place] ? Patient Name: ? Don E. Stewa rt ? ID#: ?[id number] ? : ?1945 ? Procedure Date: ? December 10, 2021 ? Case #: ? [id number] ? Room: ? 1 ? Case Physician: [...] was ?designated as ASA Class III. e [facility] clinical frailty scale is 5: [...] procedure was Urgent. 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 ??Imaging was [...] ?3.75 guiding catheter and a 3.5 Fr [facility] [place] 20 Mhz using Manual ?pullback. ??Imaging was [...] Procedure Note Vitaliy Nobles MD - 01/14/2022 [facility] Cardiac Catheterization/Intervention Re port Patient Name: Kushal Don VedaMadiha Procedure Date: 12/10/2021 A #: [id number] Primary Physician: Vitaliy Nobles Case #: [id number] File Name: [id number] Catheterization Order Number: [id number] [facility] Final Report [place], [place] Patient Name: Don Fatima ID#: [...] e was Urgent. 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 Imaging was [...] and a 3.5 Fr [facility] [place] 20 Mhz using Manual pullback. Imaging was successful. Image quality was good. The distal LM showed moderate diffuse atherosclero tic plaque. Post Intervention: The stent was well e xpanded and apposed. Indication for Intervention: Coronary intervention was indicated for primary therapy for an acute myocardial infarction. The priority for the procedure was Urgent. The [facility] indication for the procedure was N [...] lesion. Vessel f low pre intervention was YULISAS 2. Lesion length was 24mm. Thi s [...] require modification of this regimen. Consult D [facility] [...] POC Glucose 262 (H) 65 - 199 [facility] mg/dL [facility] [...] Organization Address City/State/Z[place] [address] (ABNORMAL) POCT Glucose (12/10/2021 9:48 AM EDT) athologist Signature POC Glucose 279 (H) 65 - 199 [facility] mg/dL [facility] LABORATORY Comment: Supplemental ranges: <140 mg/dL before meals <180 mg/dL all other times of the day Specimen Anatomical Collection Method Collection Time Receive d Time (Source) Location / / Volume Laterality Blood 12/10/2021 9:48 AM 9:48 EDT AM EDT Iker Cuevas MD POINT OF CARE TEST ORDERABLE S Performing Organization Address City/State/[place] [address] (ABNORMAL) POCT Glucose (12/10/2021 9:07 AM EDT) P athologist Signature POC Glucose 268 (H) 65 - 199 [facility] mg/dL [facility] LABORATORY Comment: Supplemental ranges: <140 mg/dL before meals <180 mg/dL all other times of the day Specimen Anatomical Collection Method Collection Time Receive d Time (Source) Location / / Volume Laterality Blood 12/10/2021 9:07 AM 9:07 EDT AM EDT Iker Cuevas MD POINT OF CARE TEST ORDERABLE S Performing Organization Address City/State/[place] [address] (ABNORMAL) Point of Care Blood Gas Historical (12/10/2021 9:04 AM EDT) Patholo gist Method Time Signature POC pH 7.40 7.35 - [facility] 7.[address] [facility] LABORATORY POC PCO2 40 35 - 45 [facility] mmHg [facility] LABORATORY POC PO2 63 (L) 85 - 104 [facility] LABORATORY POC Base Excess 0.0 -3.0 - 3.0 [facility] mmol/L [facility] LABORATORY POC HCO3 24.8 20.0 - [facility] 26.0 [facility] mmol/[facility] LABORATORY POC Sodium 143 135 - 145 [facility] mmol/L [facility] LABORATORY POC Potassium 3.7 3.5 - 5.0 [facility] mmol/L [facility] LABORATORY POC Ionized Ca 1.07 (L) 1.15 - [facility] 1.33 [facility] mmol/L HOSPITAL LABORATORY POC Hematocrit 30.0 (L) 40.0 - [facility] 51.0 % [facility] LABORATORY POC Calc Hgb 10.2 (L) 13.7 - [facility] 17.5 g/dL [facility] [...] Truong MD CHEMISTRY ORDERABLES Performing Organization Address City/[facility]/[place] [address] (ABNORMAL) POCT Glucose (12/10/2021 7:19 AM EDT) athologist Signature POC Glucose 274 (H) 65 - 199 [facility] mg/dL [facility] [...] [facility]/[place] [address] Heparin (unfractionated) Level (12/10/2021 4:25 AM EDT) athologist Signature Heparin UFH 0.69 IU/mL [facility] LABORATORY Comment: Heparin (anti-Xa) levels should be [...] Address City/State/ZIP Code Phon e Number [address] (ABNORMAL) Differential, Automated (12/10/2021 4:25 AM EDT) [facility] Method Time Signature Neutrophils % 79.8 % [facility] LABORATORY Neutr Abs (ANC) 7.47 (H) 1.70 - [facility] 6.10 [facility] x10(3)/[facility] LABORATORY Lymphocytes % 10.6 % [facility] LABORATORY Lymphocytes Abs 1.0 0.9 - 3.2 [facility] x10(3)/[facility] LABORATORY Monocytes % 8.4 % [facility] LABORATORY Monocyte Abs 0.8 0.3 - 0.9 [facility] x10(3)/[facility] LABORATORY Eosinophils % 0.6 % [facility] LABORATORY Eosinophils Abs 0.1 0.0 - 0.4 [facility] x10(3)/[facility] LABORATORY Basophils % 0.2 % [facility] LABORATORY Basophils Abs 0.0 0.0 - 0.1 [facility] x10(3)/[facility] LABORATORY Immature Gran [...] Morgan BROWN HEMATOLOGY ORDERABLES Performing Organization Address City/[facility]/ZIP Code Phon e Number [address] (ABNORMAL) Hemogram (12/10/2021 4:25 AM EDT) Analysis Performed At Patho logist Time Signature WBC 9.4 4.0 - 9.5 [facility] x10(3)/[facility] LABORATORY RBC 3.81 (L) 4.58 - [facility] 5.54 [facility] x10(6)/[facility] LABORATORY Hemoglobin 11.1 (L) 13.7 - [facility] 16.5 g/dL [facility] LABORATORY Hematocrit 34.0 (L) 40.5 - [facility] 48.5 % [facility] LABORATORY MCV 89.2 82.9 - [facility] 93.1 [facility] LABORATORY MCH 29.1 27.5 - [facility] 32.[address] [facility] LABORATORY MCHC 32.6 32.0 - [facility] 35.7 g/dL [facility] LABORATORY Platelets 183 145 - 357 [facility] x10(3)/[facility] LABORATORY RDWSD 49.9 (H) 36.0 - [facility] 45.0 [facility] LABORATORY RDWCV 15.2 (H) 11.4 - [facility] 13.8 % [facility] LABORATORY MPV 9.8 7.6 - 12.9 [facility] LABORATORY nRBC % Auto 0.0 % [facility] LABORATORY nRBC Abs Auto 0.000 0.000 - [facility] 0.000 [facility] x10(3)/[facility] LABORATORY Specimen Anatomical Collection Method Collection Time Receive d Time (Source) Location / / Volume Laterality Blood 12/10/2021 4:25 AM 2 4:34 EDT AM EDT Resulting Agency Comment Spec In Lab Morgan BROWN HEMATOLOGY ORDERABLES Performing Organization Address City/State/Z[place] [address] (ABNORMAL) Prothrombin Time (12/10/2021 4:25 AM EDT) P athologist Signature PT 20.0 (H) 9.4 - 12.5 [facility] LABORATORY INR 1.7 [facility] LABORATORY [...] City/State/ZIP Code Phon e Number [place] [id number] HOSPITAL LABOR[address]ORY Drive (ABNORMAL) BMP w/fasting Glucose (12/10/2021 4:25 AM EDT) athologist Signature Glucose 210 (H) 65 - 99 [facility] Fasting mg/dL [facility] [...] of Diabetes Mellitus, Position Statement from the [place] [employer]. ??Diabete s Care, Volume 33, [...] Calcium 8.0 (L) 8.5 - 10.5 mg/dL [facility] [...] Organization Address City/State/[place] [address] Magnesium (12/10/2021 4:25 AM EDT) P athologist Signature Magnesium 0.95 0.69 - 1.07 [facility]/L [facility] LABORATORY Specimen Anatomical Collection Method Collection Time Receive d Time (Source) Location / / Volume Laterality Blood 12/10/2021 4:25 AM 2 4:34 EDT AM EDT Resulting Agency Comment Spec In Lab Iker Cuevas MD CHEMISTRY ORDERABLES Performing Organization Address City/[facility]/[place] [address] POCT Glucose (12/10/2021 1:58 AM EDT) athologist Signature POC Glucose 164 65 - 199 [facility] mg/dL [facility] [...] [facility]/[place] [address] (ABNORMAL) POCT Glucose (12/09/2021 9:02 PM EDT) athologist Signature POC Glucose 313 (H) 65 - 199 [facility] mg/dL [facility] [...] [facility]/[place] [address] Heparin (unfractionated) Level (12/09/2021 7:30 PM EDT) athologist Signature Heparin UFH 0.48 IU/mL [facility] LABORATORY Comment: Heparin (anti-Xa) levels should be [...] Organization Address City/State/[place] [address] (ABNORMAL) Basic Metabolic Panel (non-fasting) (12/09/2021 7:30 PM EDT) athologist Signature Glucose Lvl 372 (H) 65 - 199 [facility] mg/dL [facility] [...] mg/dL [facility] LABORATORY Estimated GFR 37 (L) [...] Organization Address City/State/[place] [address] (ABNORMAL) POCT Glucose (12/09/2021 6:34 PM EDT) P athologist Signature POC Glucose 408 (H) 65 - 199 [facility]/dL [facility] [...] [facility]/[place] [address] (ABNORMAL) POCT Glucose (12/09/2021 6:32 PM EDT) P athologist Signature POC Glucose 356 (H) 65 - 199 [facility] mg/dL [facility] [...] Organization Address City/State/[place] [address] (ABNORMAL) POCT Glucose (12/09/2021 4:19 PM EDT) athologist Signature POC Glucose 347 (H) 65 - 199 [facility] mg/dL [facility] [...] [facility]/[place] [address] Heparin (unfractionated) Level (12/09/2021 1:29 PM EDT) athologist Signature Heparin UFH 0.42 IU/mL [facility] LABORATORY Comment: Heparin (anti-Xa) levels should be [...] Organization Address City/State/[place] [address] (ABNORMAL) POCT Glucose (12/09/2021 12:02 PM EDT) P athologist Signature POC Glucose 235 (H) 65 - 199 [facility] mg/dL [facility] [...] [facility]/[place] [address] (ABNORMAL) POCT Glucose (12/09/2021 9:44 AM EDT) P athologist Signature POC Glucose 214 (H) 65 - 199 [facility] mg/dL [facility] [...] [facility]/[place] [address] EKG 12 Lead (12/09/2021 7:57 AM EDT) Component Value Ref Range Test Analysis Performed Pathologis t Method Time At Signature Ventricular rate 101 BPM MUSE SYSTEM Atrial Rate 101 BPM MUSE SYSTEM P-R Interval 150 ms MUSE SYSTEM QRS Duration 112 ms MUSE SYSTEM Q-T Interval 364 ms MUSE SYSTEM QTC Calculated 471 ms MUSE SYSTEM (Bezet) Calculated P Caroline 59 degrees MUSE SYSTEM Calculated R Caroline -42 degrees MUSE SYSTEM Calculated T Caroline 102 degrees MUSE SYSTEM INTERPRETATION Sinus tachycardia Occasional Premature ventricular com plexes MUSE SYSTEM Left axis deviation 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) Abnormal ECG When compared with ECG of 08-DEC-2021 16:40, Premature ventricular complexes are now Present Confirmed by MD Fernandez Danette ([id number]) on 12/10/2021 4:55:06 PM Specimen Anatomical Collection Method Collection Time Receive d Time (Source) Location / / Volume Laterality 12/09/2021 7:57 AM 2 4:55 EDT PM EDT Iker Cuevas MD ECG ORDERABLES Performing Organization Address City/State/ZIP Code Phon e Number MUSE SYSTEM (ABNORMAL) POCT Glucose (12/09/2021 7:28 AM EDT) P athologist Signature POC Glucose 263 (H) 65 - 199 [facility] mg/dL [facility] [...] Organization Address City/State/[place] [address] (ABNORMAL) Hemoglobin A1c (12/09/2021 6:18 AM EDT) Analysis Performed At Patho logist Time Signature Hemoglobin A1C 7.4 (H) 4.3 - 5.6 [facility] [...] Mellitus, Diabetes Care 2013; 36: Suppl. 1, W22-70 Est Avg Gluc See note mg/dL [facility] [...] with hemoglobinopathies. Additional resources are available on [facility] ADA website. Macario HAMMOND, Ruthann J, Deysi R, et al. ??Tr anslating the A1C assay into estimated average glucose values. ??Diabetes Care 2008:31(8):3809-7782. Specimen Anatomical Collection Method Collection Time Receive d Time (Source) Location / / Volume Laterality Blood Venous Draw / 12/09/2021 6:18 AM 12/10/19 22 Unknown EDT 12:24 PM EDT Resulting Agency Comment Spec In Lab Migdalia BROWN CHEMISTRY ORDERABLES Performing Organization Address City/State/Z[place] [address] (ABNORMAL) Prothrombin Time (12/09/2021 6:18 AM EDT) athologist Signature PT 26.6 (H) 9.4 - 12.5 [facility] LABORATORY INR 2.3 [facility] LABORATORY [...] Migdalia BROWN HEMATOLOGY ORDERABLES Performing Organization Address City/[facility]/ZIP Code Phon e Number [address] Heparin (unfractionated) Level (12/09/2021 6:18 AM EDT) P athologist Signature Heparin UFH 0.24 IU/mL [facility] LABORATORY Comment: Heparin (anti-Xa) levels should be [...] Cuevas MD HEMATOLOGY ORDERABLES Performing Organization Address City/[facility]/[place] [address] (ABNORMAL) Differential, Automated (12/09/2021 6:18 AM EDT) Patholo gist Method Time Signature Neutrophils % 91.5 % [facility] LABORATORY Neutr Abs (ANC) 15.78 (H) 1.70 - [facility] 6.10 [facility] x10(3)/[facility] L LABORATORY Lymphocytes % 2.9 % [facility] LABORATORY Lymphocytes Abs 0.5 (L) 0.9 - 3.2 [facility] x10(3)/[facility] LABORATORY Monocytes % 4.9 % [facility] LABORATORY Monocyte Abs 0.8 0.3 - 0.9 [facility] x10(3)/[facility] LABORATORY Eosinophils % 0.0 % [facility] LABORATORY Eosinophils Abs 0.0 0.0 - 0.4 [facility] x10(3)/[facility] LABORATORY Basophils % 0.2 % [facility] LABORATORY Basophils Abs 0.0 0.0 - 0.1 [facility] x10(3)/[facility] LABORATORY Immature Gran % 0.50 % [...] Organization Address City/State/Z[place] [address] (ABNORMAL) Hemogram (12/09/2021 6:18 AM EDT) Analysis Performed At Patho logist Time Signature WBC 17.2 (H) 4.0 - 9.5 [facility] x10(3)/[facility] LABORATORY RBC 4.32 (L) 4.58 - [facility] 5.54 [facility] x10(6)/[facility] LABORATORY Hemoglobin 12.6 (L) 13.7 - [facility] 16.5 g/dL [facility] LABORATORY Hematocrit 38.9 (L) 40.5 - [facility] 48.5 % [facility] LABORATORY MCV 90.0 82.9 - [facility] 93.1 [facility] LABORATORY MCH 29.2 27.5 - [facility] 32.[address] [facility] LABORATORY MCHC 32.4 32.0 - [facility] 35.7 g/dL [facility] LABORATORY Platelets 193 145 - 357 [facility] x10(3)/[facility] LABORATORY RDWSD 50.4 (H) 36.0 - [facility] 45.0 [facility] LABORATORY RDWCV 15.2 (H) 11.4 - [facility] 13.8 % [facility] LABORATORY MPV 9.5 7.6 - 12.9 [facility] LABORATORY nRBC % Auto 0.0 % [facility] LABORATORY nRBC Abs Auto 0.000 0.000 - [facility] 0.000 [facility] x10(3)/[facility] LABORATORY Specimen Anatomical Collection Method Collection Time Receive d Time (Source) Location / / Volume Laterality Blood 12/09/2021 6:18 AM 6:33 EDT AM EDT Resulting Agency Comment Spec In Lab Morgan BROWN HEMATOLOGY ORDERABLES Performing Organization Address City/State/Z[place] [address] Lipid Panel (Reflex Direct LDL) (12/09/2021 6:18 AM EDT) P athologist Signature Chol, Total 105 mg/dL [facility] LABORATORY Comment: Lower Risk: <200 mg/dL Average Risk: 200-239 mg/dL Higher Risk: >hl=904 mg/dL Triglycerides 133 mg/dL [facility] LABORATORY Comment: Average Risk/Lower Risk: <150 mg/dL Borderline High Risk: 150-199 mg/dL High Risk: 200-499 mg/dL Very High Risk: >ir=514 mg/dL HDL 42 mg/dL [facility] LABORATORY Comment: Males: ?? Higher Risk: <40 mg/dL Females: ?? Higher Risk: <50 mg/dL LDL Cholesterol 36 mg/dL [facility] Comment: Lowest Risk: <100 mg/dL Lower Risk: 100-129 mg/dL Borderline High Risk: 130-159 mg/dL High Risk: 160-189 mg/dL Very High Risk: >rm=048 mg/dL Chol/HDL Ratio 2.5 ratio [facility] Lipid Interpretation See Note [facility] Comment: Lipid management should be guided by a p atient? s ASCVD risk, goals and preferences. ACC/AHA Guidelines recommend high intens ity statin if clinical ASCVD or LDL greater than or equal to 190 mg/dL. [email or web address] Adults aged 40-75 with LDL 70-189 mg/dL should have their 10 year ASCVD risk estimated with the ACC/AHA ASCVD risk es timator http://tools.acc.org/OVGQQ-Dphr-Hwhumgww r/ Statin should be discussed if risk [...] Organization Address City/State/[place] [address] TSH (12/09/2021 6:18 AM EDT) athologist Signature TSH 1.60 0.27 - 4.20 [facility] mcIU/mL [facility] Comment: Reference Interval (mcIU/mL): Females: ??First Trimester: 0.23-3.88 ??Second Trimester: 0.22-3.90 ??Third Trimester: 0.44-4.66 Specimen Anatomical Collection Method Collection Time Receive d Time (Source) Location / / Volume Laterality Blood 12/09/2021 6:18 AM 2 6:33 EDT AM EDT Resulting Agency Comment Spec In Lab Iker Cuevas MD CHEMISTRY ORDERABLES Performing Organization Address City/[facility]/[place] [address] Hepatic Function Panel (12/09/2021 6:18 AM EDT) athologist Signature Total Protein 7.3 6.1 - 8.0 [facility] g/dL [facility] Albumin 4.2 3.2 - 5.2 [facility] g/dL [facility] AST 25 0 - 39 [facility] unit/L [facility] ALT 15 0 - 55 [facility] unit/L [facility] Alk Phos 75 40 - 130 [facility] unit/L [facility] Total 1.1 0.2 - 1.3 [employer] Bilirubin mg/dL [facility] Bili, Direct 0.2 0.0 - 0.3 [place] [facility] mg/dL [facility] Specimen Anatomical Collection Method Collection Time Receive d Time (Source) Location / / Volume Laterality Blood 12/09/2021 6:18 AM 2 6:33 EDT AM EDT Resulting Agency Comment Spec In Lab Iker Cuevas MD CHEMISTRY ORDERABLES Performing Organization Address City/[facility] [place] [address] (ABNORMAL) BMP w/fasting Glucose (12/09/2021 6:18 AM EDT) P athologist Signature Glucose 235 (H) 65 - 99 [facility] Fasting mg/dL [facility] [...] of Diabetes Mellitus, Position Statement from the [place] [employer]. ??Diabete s Care, Volume 33, [...] Address City/State/ZIP Code Phon e Number [address] Magnesium (12/09/2021 6:18 AM EDT) P athologist Signature Magnesium 0.81 0.69 - 1.07 [facility] mmol/L [facility] Specimen Anatomical Collection Method Collection Time Receive d Time (Source) Location / / Volume Laterality Blood 12/09/2021 6:18 AM 2 6:33 EDT AM EDT Resulting Agency Comment Spec In Lab Iker Cuevas MD CHEMISTRY ORDERABLES Performing Organization Address City/State/[place] [address] (ABNORMAL) Troponin (12/09/2021 6:18 [...] additional sample may be indicated. Reference: Third [place] Definition of Myocardial Infarction. Journal of the [place] [employer] 2012;60:1581-98 Specimen Anatomical Collection Method Collection Time Receive d Time (Source) Location / / Volume Laterality Blood 12/09/2021 6:18 AM 6:33 EDT AM EDT Resulting Agency Comment Spec In Lab Iker Cuevas MD CHEMISTRY ORDERABLES Performing Organization Address City/State/ZIP Code Phon e Number [place] [id number]OS[address] LAB[address] XR Chest One View [...] who have questions please contact the health out of school hours care worker that requested your imaging first. [...] ho have questions please contact the health out of school hours care worker that requested your imaging first. Amber Sanches MD IMG DX ORDERABLES (ABNORMAL) BLOOD GAS 2 ARTERIAL (12/09/2021 5:14 AM EDT) Analysis Performed At Path logis Time Signature pH Art 7.43 7.35 - [facility] 7.[address] [facility] pCO2 Art 36 35 - 45 [facility] LABORATORY pO2 Art 67 (L) 85 - 104 [facility]ORY HCO3 Art 23.4 20.0 - [facility] 26.0 [facility] mmol/L [facility] BE Art -0.9 -3.0 - 3.0 [facility] mmol/L [facility] Hgb Blood Gas 13.2 (L) 13.7 - [facility] 16.5 g/dL [facility] O2HB Art 91.3 (L) 94.0 - [facility] 97.0 % [facility] [...] [facility] FIO2 Art 35 % [facility] Flow Art 8.0 LPM [facility] PF Ratio Art 191 [facility] Specimen Anatomical Collection Method Collection Time Receive d Time (Source) Location / / Volume Laterality Blood 12/09/2021 5:14 AM 5:14 EDT AM EDT Iker Cuevas MD CHEMISTRY ORDERABLES Performing Organization Address City/State/ZIP [place] [address] POCT Glucose (12/09/2021 4:46 AM EDT) athologist Signature POC Glucose 198 65 - 199 [facility] mg/dL [facility] [...] Organization Address City/State/[place] [address] (ABNORMAL) POCT Glucose (12/09/2021 3:01 AM EDT) athologist Signature POC Glucose 225 (H) 65 - 199 [facility] mg/dL [facility] [...] Organization Address City/State/[place] [address] (ABNORMAL) POCT Glucose (12/08/2021 10:55 PM EDT) athologist Signature POC Glucose 327 (H) 65 - 199 [facility] mg/dL [facility] [...] Organization Address City/State/[place] [address] Heparin (unfractionated) Level (12/08/2021 10:03 PM EDT) P athologist Signature Heparin UFH 0.18 IU/mL [facility] Comment: Heparin (anti-Xa) levels should be [...] Organization Address City/State/Z[place] [address] (ABNORMAL) Troponin (12/08/2021 10:03 PM EDT) athologist Signature Troponin-T 0.92 (H) 0.00 - [facility] 0.00 ng/mL [facility] [...] additional sample may be indicated. Reference: Third [place] Definition of Myocardial Infarction. Journal of the [place] [employer] 2012;60:1581-98 Specimen Anatomical Collection Method Collection Time Receive d Time (Source) Location / / Volume Laterality Blood 12/08/2021 10:03 12/08/2021 PM EDT 10:31 PM EDT Resulting Agency Comment Spec In Lab Iker Cuevas MD CHEMISTRY ORDERABLES Performing Organization Address City/[facility]/[place] [address] (ABNORMAL) POCT Glucose (12/08/2021 8:22 PM EDT) athologist Signature POC Glucose 429 (H) 65 - 199 [facility] mg/dL [facility] [...] [facility]/[place] [address] (ABNORMAL) POCT Glucose (12/08/2021 [...] [facility]/[place] [address] Magnesium (12/08/2021 6:02 PM EDT) athologist Signature Magnesium 0.86 0.69 - 1.07 [facility] mmol/L [facility] Specimen Anatomical Collection Method Collection Time Receive d Time (Source) Location / / Volume Laterality Blood 12/08/2021 6:02 PM 6:36 EDT PM EDT Resulting Agency Comment Spec In Lab Iker Cuevas MD CHEMISTRY ORDERABLES Performing Organization Address City/State/ZIP Code Phon e Number [address] (ABNORMAL) Basic Metabolic Panel (non-fasting) (12/08/2021 6:02 PM EDT) athologist Signature Glucose Lvl 392 (H) 65 - 199 [facility] mg/dL [facility] [...] Organization Address City/State/[place] [address] (ABNORMAL) Differential, Automated (12/08/2021 6:02 PM EDT) [facility] gist Method Time Signature Neutrophils % 89.5 % [facility] Neutr Abs (ANC) 13.97 (H) 1.70 - [facility] 6.10 [facility] x10(3)/[facility] LABORATORY Lymphocytes % 3.7 % [facility] Lymphocytes Abs 0.6 (L) 0.9 - 3.2 [facility] x10(3)/[facility] LABORATORY Monocytes % 6.1 % [facility] Monocyte Abs 1.0 (H) 0.3 - 0.9 [facility] x10(3)/[facility] LABORATORY Eosinophils % 0.0 % [facility] Eosinophils Abs 0.0 0.0 - 0.4 [facility] x10(3)/[facility] LABORATORY Basophils % 0.2 % [facility] Basophils Abs 0.0 0.0 - 0.1 [facility] x10(3)/[facility] LABORATORY Immature Gran % 0.50 % [...] Organization Address City/State/Z[place] [address] (ABNORMAL) Hemogram (12/08/2021 6:02 PM EDT) Analysis Performed At Patho logist Time Signature WBC 15.6 (H) 4.0 - 9.5 [facility](3[facility] LABORATORY RBC 4.05 (L) 4.58 - [facility] 5.54 [facility] x10(6)/[facility] LABORATORY Hemoglobin 11.8 (L) 13.7 - [facility] 16.5 g/dL [facility] Hematocrit 35.8 (L) 40.5 - [facility] 48.5 % [facility] MCV 88.4 82.9 - [facility] 93.1 [facility] LABORATORY MCH 29.1 27.5 - [facility] 32.[address] [facility] LAB[facility]ATORY MCHC 33.0 32.0 - [facility] 35.7 g/dL [facility] Platelets 178 145 - 357 [facility] x[facility](3)/[facility] LABORATORY RDWSD 49.3 (H) 36.0 - [facility] 45.0 [facility] LABORATORY RDWCV 15.1 (H) 11.4 - [facility] 13.8 % [facility] LABORATORY MPV 10.4 7.6 - 12.9 [facility] LABORATORY nRBC % Auto 0.0 % [facility] nRBC Abs Auto 0.000 0.000 - [place] 0.000 [facility] x10(3)/[facility] LABORATORY Specimen Anatomical Collection Method Collection Time Receive d Time (Source) Location / / Volume Laterality Blood 12/08/2021 6:02 PM 2 6:36 EDT PM EDT Resulting Agency Comment Spec In Lab Morgan BROWN HEMATOLOGY ORDERABLES Performing Organization Address City/State/ZIP Code [place] [address] (ABNORMAL) Troponin (12/08/2021 6:02 [...] additional sample may be indicated. Reference: Third [place] Definition of Myocardial Infarction. Journal of the [place] College of [employer]iology 2012;60:1581-98 Specimen Anatomical Collection Method Collection Time Receive d Time (Source) Location / / Volume Laterality Blood 12/08/2021 6:02 PM 2 6:36 EDT PM EDT Resulting Agency Comment Spec In Lab Iker Cuevas MD CHEMISTRY ORDERABLES Performing Organization Address City/State/ZIP [place] [address] COVID-19 PCR (12/08/2021 5:00 [...] using the Simplexa COVID-19 Direct Assay by frentingjoi marcum as authorized by the FDA issued [...] clinical management guidance information are available at [facility] Coronavirus Disease 2019 (COVID-19) webpage under Information fo r Healthcare Professionals (https://www.cdc.gov/coronavirus/2019-nc ov/hcp/index.html). Additional information about this and ot her EUA tests can be found in provider and patient fact sheets at the following FDA website: https://www.fda.gov/medical-devices/tramuqdhhty-kwaimel-3382-umpzt-35-quwrtcnyd- bby-meocvntvlvbkbh-lytftkb-devices/qtcor-tncrkkbsvvw-bpuc SARS-CoV-2 Source ENGLISH AND READING INSTRUCTOR Swab [facility] Specimen (Source) Anatomical Collection Method Collection Time Re ceived Time Location / / Volume Laterality Nasopharyngeal Swab 12/08/2021 5:00 12/08 PM EDT 6:03 PM EDT Comment: Symptoms->Surveillance Resulting Agency Comment Spec In Lab Iker Cuevas MD MICROBIOLOGY - GENERAL ORDER [place] Performing Organization Address City/[facility] Phon e Number [place] [id number]OSP[address] LAB[address]ORY Drive EKG 12 Lead (12/08/2021 4:40 PM EDT) Component Value Ref Range Test Analysis Performed Pathologis t Method Time At Signature Ventricular rate 78 BPM MUSE SYSTEM Atrial Rate 78 BPM MUSE SYSTEM P-R Interval 152 ms MUSE SYSTEM QRS Duration 96 ms MUSE SYSTEM Q-T Interval 396 ms MUSE SYSTEM QTC Calculated 451 ms MUSE SYSTEM (Bezet) Calculated P Caroline 44 degrees MUSE SYSTEM Calculated R Caroline -31 degrees MUSE SYSTEM Calculated T Caroline 124 degrees MUSE SYSTEM INTERPRETATION Normal sinus [...] Cuevas MD ECG ORDERABLES Performing Organization Address City/[facility] Phon e Number MUSE SYSTEM (ABNORMAL) POCT Glucose (12/08/2021 4:34 PM EDT) P athologist Signature POC Glucose 400 (H) 65 - 199 [facility] mg/dL [facility] [...] City/State/ZIP Code Ph[place] [address] documented in this encounter [...] Coronary atherosclerosis of unspecified type of vessel, [place] or graft Cardiomyopathy, ischemic Other specified forms [...] Routine 1744 (Given - Provider: Emma Garcia, VMASI )2345 (Given - Provider: Barbara Boogie RN) [...] solution 1 mg( Linked Group 2) 08 ([facility] Hold - Provider: Admin Adt - Reason: Transfer to a Procedural area)1230 ([facility] Unhold - Provider: Admin Adt) 1 [...] (Glutose) 40% oral geL(Linked Group 2) 08 ([facility] Hold - Provider: Admin Adt - Reason: Transfer to a Procedural area)1230 ([facility] Unhold - Provider: Admin Adt) 15-30 [...] (Intra-Procedure), Routine niCARdipine (Cardene) (100 mcg/mL) dilution (EXCHANGE CLERK) (CANCELED) 1030 (Given - Provider: Vitaliy [...] Reason: Transfer to a Procedural area)1230 ([facility] Unhold - Provider: Admin Adt) 1 tablet, Oral, 2 TIMES DAILY PRN, Start ing on Wed12/09/21 at 1628, Until Wed12/12/21 at 1312, Constipation, Routine sodium chloride 0.9 % (flush) (BD PosiFlush Normal Sean ine 0.9) flush 5-20 mL 08 ([facility] Hold - Provider: Admin Adt - Reason: Transfer to a Procedural area)1230 ([facility] Unhold - Provider: Admin Adt) 5-20 [...] episode. & nbsp; For persistent hypoglycemia, con tire inspector longer-acting treatment for the duration of [...]
Routine documented in this encounter Care Teams Die Keeper Relationship Specialty Start Date End Date Lovely Vicente MD PCP - General 04/16/[address] [place] [address] [address] [place] [address] documented as of this encounter
--- OUTSIDE RECORDS SUMMARY | 2022-05-11 08:41 | XMS_ITS | Encounter Summary ---
:1945 Author Organization [facility] [place] [address] Care Team Providers Name Role Phone Lovely Vicente MD Primary Care Provider Encounter Details Date Type Department Care Team Description 12/25/2021 Laboratory Appointment Lab 3L [facility] [place] [id number] Social History Tobacco Use Types Packs/Day Years [...] [facility] [place] [address] [place], [place] [address] (Wo rk) 05/28/2022 Laboratory Appointment Lab 05/28/2022 Office Visit Cardiology Zulma Dolan MD [facility] [place] [address] Liz Poole PA [facility] [place] [address] 06/10/2022 Office Visit Dermatology Laura Scherer MD [facility] [address] [address] (Wo rk) documented as of this encounter [...] (ABNORMAL) Differential, Automated (12/25/2021 7:46 AM EDT) [facility] gist Method Time Signature Neutrophils % 82.6 % [facility] Neutr Abs (ANC) 9.37 (H) 1.70 - [facility] 6.10 [facility] x10(3)/[facility] LABORATORY Lymphocytes % 7.1 % [facility] Lymphocytes Abs 0.8 (L) 0.9 - 3.2 [facility] x10(3)/[facility] LABORATORY Monocytes % 8.8 % [facility] Monocyte Abs 1.0 (H) 0.3 - 0.9 [facility] x10(3)/[facility] LABORATORY Eosinophils % 0.4 % [facility] Eosinophils Abs 0.0 0.0 - 0.4 [facility] x10(3)/[facility] LABORATORY Basophils % 0.4 % [facility] Basophils Abs 0.0 0.0 - 0.1 [facility] x10(3)/[facility] LABORATORY Immature Gran % 0.70 % [...] City/State/ZIP Code Phon e Number [place] [id number]OS[address] LAB[address]ORY Drive (ABNORMAL) Hemogram (12/25/2021 7:46 AM EDT) Analysis Performed At Patho logist Time Signature WBC 11.4 (H) 4.0 - 9.5 [facility] x10(3)/[facility] LABORATORY RBC 4.23 (L) 4.58 - [facility] 5.54 [facility] x10(6)/[facility] LABORATORY Hemoglobin 12.3 (L) 13.7 - [facility] 16.5 g/dL [facility] Hematocrit 37.7 (L) 40.5 - [facility] RYAN 48.5 % [facility] LABORATORY MCV 89.1 82.9 - [facility] 93.1 [facility] LABORATORY MCH 29.1 27.5 - [place] [facility] 32.1 pg [facility]ATORY MCHC 32.6 32.0 - [facility] 35.7 g/dL [facility]ORY Platelets 215 145 - 357 [facility] x10(3)/[facility] LABORATORY RDWSD 49.8 (H) 36.0 - [place] [facility] 45.0 [facility] RDWCV 15.2 (H) 11.4 - [facility] R[facility]AN 13.8 % [facility] LABORATORY MPV 9.2 7.6 - 12.9 [facility] LABORATORY nRBC % Auto 0.0 % [facility] nRBC Abs Auto 0.000 0.000 - [facility] 0.000 [facility] x10(3)/[facility] LABORATORY Specimen Anatomical Collection Method Collection Time Receive d Time (Source) Location / / Volume Laterality Blood 12/25/2021 7:46 AM 8:01 EDT AM EDT Resulting Agency Comment Spec In Lab Liz BROWN HEMATOLOGY ORDERABLES Performing Organization Address City/State/[place] [address] (ABNORMAL) Basic Metabolic Panel (non-fasting) (12/25/2021 7:46 AM EDT) P athologist Signature Glucose Lvl 272 (H) 65 - 199 [facility] mg/dL [facility] [...] Plunkett MD CHEMISTRY ORDERABLES Performing Organization Address City/[facility]/[place] [address] (ABNORMAL) pro-Brain Natriuretic Peptide (12/25/2021 7:46 AM EDT) P athologist Signature ProBNP 1,380 (H) <=124 [facility] pg/mL [facility] LABOR[facility]ORY Specimen Anatomical Collection Method Collection Time Receive d Time (Source) Location / / Volume Laterality Blood 12/25/2021 7:46 AM 2 8:01 EDT AM EDT Resulting Agency Comment Spec In Lab Zulma Plnukett MD CHEMISTRY ORDERABLES Performing Organization Address City/[facility]/ZIP [facility] [place] [address] documented in this encounter Visit Diagnoses Diagnosis Chronic systolic heart failure documented in this encounter Care Teams Fruit Press Operator Relationship Specialty Start Date End Date Lovely Vicente MD PCP - General 04/16/[address] [place] [address] documented as of this encounter
--- OUTSIDE RECORDS SUMMARY | 2022-05-11 08:42 | XMS_ITS | Encounter Summary ---
:1945 [place] [address] Care Team Providers Name Role Phone Lovely Vicente MD Primary Care Provider Encounter Details Date Type Department Care Team Description 03/20/2021 Telephone Neurology at [facility] Hugo Gaston MD [facility] [place] [address] [place] [address] [phone] (Wo rk) Social History Tobacco Use Types [...] - 03/20/2021 6:03 PM EDT Call from [facility]. 76 M with h/o DM. CABG, [...] Gaston MD Department of Neurology Pager # [phone] documented in this encounter Plan of Treatment Upcoming Encounters Date Type Specialty Care Team Description 05/28/2022 Appointment Cardiology Zulma Dolan MD [facility] [place], [place] [address] (Wo rk) 05/28/2022 Laboratory Appointment Lab 05/28/2022 Office Visit Cardiology Zulma Dolan MD [facility] [place] [address] Liz Poole PA [facility] [place] [address] 06/10/2022 Office Visit Dermatology Laura Scherer MD [facility] [address] [place], [place] [address] (Wo rk) documented as of this encounter Visit Diagnoses Not on filedocumented in this encounter Care Teams Sanding Machine Tender Automatic Relationship Specialty Start Date End Date Lovely Vicente MD PCP - General 04/16/[address] [place] [address] documented as of this encounter
--- OUTSIDE RECORDS SUMMARY | 2022-05-11 08:42 | XMS_ITS | Encounter Summary ---
:1945 [place] [address] Care Team Providers Name Role Phone Lovely Vicente MD Primary Care Provider Reason for Visit Reason Comments Skin Cancer Examination Encounter Details Date Type Department Care Team Description 03/20/2021 Office Visit Dermatology at [facility] Brennen Rene MD History of melanoma; [facility] History of dysplastic nevus; [address] Multiple benign nevi; [place] [address] [facility] [place] [address] (seborrheic keratosis); [phone] [address]MATOLOGY [place] (actinic keratosis) [place], [place] [address] Social History Tobacco Use Types [...] no SOCIAL HISTORY 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 Last visit at [facility] Derm: 01/02/2020 Medications: Reviewed in eD-H Allergies: [...] FSE; history of Melanoma []Note routed to paralegal legal secretary [x]Recall has been placed in scheduling system []Appointment scheduled at checkout Scribe attestation: Yoana Pang LPN has performed the documentation for this encounter in the presence of and acting as a scribe for LAURA RENE MD I performed the above scribed service and agree with the accuracy of the documentation in this encounter. Reviewed and signed by: LAURA RENE MD Dermatology [facility] documented in this encounter Plan of Treatment Upcoming Encounters Date Type Specialty Care Team Description 05/28/2022 Appointment Cardiology TrudiZulma Knowles MD [facility] [place], [place] [address] (Wo rk) 05/28/2022 Laboratory Appointment Lab 05/28/2022 Office Visit Cardiology Zulma Dolan MD [facility] [place] [address] Liz Poole PA [facility] [place] [address] 06/10/2022 Office Visit Dermatology Laura Rene MD [facility] DR TE[address]DERMAT [place], [place] [address] (Wo [...] keratosis documented in this encounter Care Teams Truck Rental Manager Relationship Specialty Start Date End Date Lovely Vicente MD PCP - General 04/16/[address] [place] [address] documented as of this encounter
--- OUTSIDE RECORDS SUMMARY | 2022-05-11 08:42 | XMS_ITS | Encounter Summary ---
:1945 Author Organization [facility] [place] [address] Care Team Providers Name Role Phone Lovely Vicente MD Primary Care Provider Encounter Details Date Type Department Care Team Description 02/19/2020 Telephone Dermatology at [facility] Ariana Wilder LPN [address] [place] [address] Social History Tobacco Use Types Packs/Day [...] MD [facility] [place], [place] [address] (Wo rk) 05/28/2022 Laboratory Appointment Lab 05/28/2022 Office Visit Cardiology Zulma Dolan MD [facility] [place] [address] Liz Poole PA [facility] [place] [address] 06/10/2022 Office Visit Dermatology Laura Scherer MD [facility] [address]MAT [place], [place] [address] (Wo rk) documented as of this encounter Visit Diagnoses Not on filedocumented in this encounter Care Teams Motion And Time Study Teacher Relationship Specialty Start Date End Date Lovely Vicente MD PCP - General 04/16/[address] [place] [address] documented as of this encounter
--- OUTSIDE RECORDS SUMMARY | 2022-05-11 08:42 | XMS_ITS | Encounter Summary ---
:1945 Author Organization [facility] Address [facility] [place] [address] Care Team Providers Name Role Phone Lovely Vicente MD Primary Care Provider Encounter Details Date Type Department Care Team Description 01/02/2020 Office Visit Dermatology at [facility] ker[facility]oses; Abdelrahman HOOPER MD History of melanoma; [address] [facility] History of dysplastic nevus; [place] [address] Multiple benign nevi; [phone] [facility] Seborrheic yossi [place]; RD-DERMATOLGY Skin exam for malignant neoplasm [place], [place] [address] Social History Tobacco Use Types [...] for and in the presence of Dr. Gacria.: JOHNSON Ryder and Sita Perez I performed the above scribed service and agree with the accuracy of the documentation in this encounter. Rigoberto Garcia MD Section of Dermatology [facility] documented in this encounter Plan of Treatment Upcoming Encounters Date Type Specialty Care Team Description 05/28/2022 Appointment Cardiology Zulma Dolan MD [facility] [address] [place], [place] [address] (Wo lissa) 05/28/2022 Laboratory Appointment Lab 05/28/2022 Office Visit Cardiology Zulma Dolan MD [facility] [place] [address] Liz Poole PA [facility] [place] [address] 06/10/2022 Office Visit Dermatology Laura Scherer MD [facility] [address]MAT [place], [place] [address] (Wo lissa) documented as of [...] documented in this encounter Care Teams Hand Thermal Cutter Relationship Specialty Start Date End Date Lovely Vicente MD PCP - General 04/16/15 [facility] [address] [place] [address] documented as of this encounter
--- OUTSIDE RECORDS SUMMARY | 2022-05-11 08:42 | XMS_ITS | Encounter Summary ---
:1945 Author Organization [facility] [place] [address] Care Team Providers Name Role Phone Lovely Vicente MD Primary Care Provider Encounter Details Date Type Department Care Team Description 01/16/2019 Laboratory Appointment Lab 3L [facility] [place] [address] Social History Tobacco Use Types Packs/Day Years [...] [facility] [place], [place] [address] (Wo rk) 05/28/2022 Laboratory Appointment Lab 05/28/2022 Office Visit Cardiology Zulma Dolan MD [facility] [place] [address] Liz Poole PA [facility] [place] [address] 06/10/2022 Office Visit Dermatology Laura Scherer MD [facility] ER DR TE[address]DERMAT [place], [place] [address] (Wo rk) documented as of [...] [place] [address] (ABNORMAL) Basic Metabolic Panel (non-fasting) (01/16/2019 7:49 AM EDT) athologist Signature Glucose Lvl 105 65 - 199 [facility] mg/dL [...] of body mass or the acutely ill. [email or web address]://[email or web address] eGFR 79 >=60 mL/min/1.73 m?? [facility] LABORATORY Comment: The eGFR was calculated using the CKD-EP I equation. As with all creatinine based estimates of kidney function, eGFR values calculated with the CKD-EPI equation are not accurate in patients wi th acute kidney failure, extremes of body mass or the acutely ill. http://[email or web address]/Clinkednkf Specimen Anatomical Collection Method Collection Time Receive d Time (Source) Location / / Volume Laterality Blood specimen 01/16/2019 7:49 AM 019 7:55 (specimen) EDT AM EDT Resulting Agency Comment Spec In Lab Danette Maxwell APRN CHEMISTRY ORDERABLES Performing Organization Address City/State/[place] [address] documented in this encounter Visit Diagnoses Diagnosis Chronic systolic heart failure documented in this encounter Care Teams Functional Skills Tutor Relationship Specialty Start Date End Date Lovely Vicente MD PCP - General 04/16/[address] [place] [address] documented as of this encounter
--- OUTSIDE RECORDS SUMMARY | 2022-05-11 08:42 | XMS_ITS | Encounter Summary ---
:1945 Author Organization [facility] [place] [address] Care Team Providers Name Role Phone Lovely Vicente MD Primary Care Provider Encounter Details Date Type Department Care Team Description 03/20/2021 Ancillary Procedure Radiology Library at [place] [address] [place] [address] [phone] Social History Tobacco Use Types Packs/Day Years [...] MD [facility] er [place], [place] [address] (Wo rk) 05/28/2022 Laboratory Appointment Lab 05/28/2022 Office Visit Cardiology Zulma Dolan MD [facility] [place] [address] Liz Poole PA [facility] [place] [address] 06/10/2022 Office Visit Dermatology Laura Scherer MD [facility] ER DR [address]-DERMAT [place], [place] [address] [...] Address City/State/ZIP Code Phon e Number [place], [place] documented in this encounter Visit Diagnoses Not on filedocumented in this encounter Care Teams Cryptographic Technician Relationship Specialty Start Date End Date Lovely Vicente MD PCP - General 04/16/[address] [place] [address] documented as of this encounter
--- OUTSIDE RECORDS SUMMARY | 2022-05-11 08:42 | XMS_ITS | Encounter Summary ---
:1945 Author Organization [facility] [place] [address] Care Team Providers Name Role Phone Lovely Vicente MD Primary Care Provider Reason for Visit Reason Onset Date Comments Other 03/24/2019 cardiac clearance ne eded Encounter Details Date Type Department Care Team Description 03/24/2019 Telephone Cardiology at [facility] Danette Maxwell, Other (cardiac [facility] TANNER ROTARY DRUM CONTINUOUS PROCESS clearance needed) [place] [address] CARDIOLOGY [place], [place] [address] (Wo rk) Social History [...] AM EDT Leonela from [facility] [place] called requesting cardiac clearance for this patient who is to have a colonoscopy on 04/04/19. He is on anticoagulation and they will need to bridge him. Their phone # [phone], fax# [phone]. Thank you. documented in this encounter Plan of Treatment Upcoming Encounters Date Type Specialty Care Team Description 05/28/2022 Appointment Cardiology Zulma Dolan MD [facility] [place], [place] [address] (Wo rk) 05/28/2022 Laboratory Appointment Lab 05/28/2022 Office Visit Cardiology Zulma Dolan MD [facility] [place] [address] Liz Poole PA [facility] [place] [address] 06/10/2022 Office Visit Dermatology Laura Scherer MD [facility] DR [address] [place], [place] [address] (Wo rk) documented as of this encounter Visit Diagnoses Not on filedocumented in this encounter Care Teams Undercover Cop Relationship Specialty Start Date End Date Lovely Vicente MD PCP - General 04/16/[address] [place] [address] documented as of this encounter
--- OUTSIDE RECORDS SUMMARY | 2022-05-11 08:42 | XMS_ITS | Encounter Summary ---
:1945 Author Organization [facility] [place] [address] Care Team Providers Name Role Phone Lovely Vicente MD Primary Care Provider Reason for Visit Reason Comments Establish Care Atrial Fibrillation Congestive Heart Failure Cardiomyopathy Encounter Details Date Type Department Care Team Description 09/06/2019 [facility] Ischemic cardiomyopathy Osvaldo STRANGE [address] [place], [place] CARDIOLOGY DEPT. [address] [place] [address] [phone] Social History Tobacco Use Types Packs/Day Years [...] today For any questions, call my office: [phone] To access your health care information, go to the web at: [email or web address] (you will need to register) For educational materials: [email or web address] Karel TRAMMELL.[facility], Clinical Cardiac Electrophysiology, [facility], [facility] A Healthy Heart: After Your Visit [...] least 2 servings of fish a week. [place], mackerel, mcfadden, sardines, and chunk light tuna [...] irregular heartbeat. After you call 911, the floor press operator may tell you to chew 1 [...] more? Visit our health information library at [email or web address] [email or web address]. You can also view health information on [employer], your personal patient account. Log in or sign up today. Enter F075 in the search box to learn more about A Healthy Heart: After Your Visit. ?? [id number] [employer] documented in this encounter Progress Notes Karel Mcelryo MD - 09/06/2019 2:20 PM EST Images from the original note were not included. Section of Cardiology/Cardiac Electrophysiology [facility] Clinical Cardiac Electrophysiology Consult Patient ID Don Fatima 1945 [id number] Don Fatima is referred to the EP clinic by Danette Maxwell APRN PhD Chief Complaint Dyspnea on exertion Ischemic cardiomyopathy History This is a 74 y.o. male following up/being seen in clinic for evaluation for ongoing anticoagulation. He has a Rksrs3Pvve score of ~ 6-7. 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 T: [phone] F: [phone] 35 minutes of this 40 minute encounter were spent in counselling, as described above Cc: MD Danette Cr APRN PhD Janett Espino DPM documented in this encounter Plan of Treatment Upcoming Encounters Date Type Specialty Care Team Description 05/28/2022 Appointment Cardiology Zulma Dolan MD [facility] [place], [place] [address] (Wo rk) 05/28/2022 Laboratory Appointment Lab 05/28/2022 Office Visit Cardiology Zulma Dolan MD [facility] [place] [address] Liz Poole PA [facility] [place] [address] 06/10/2022 Office Visit Dermatology Laura Scherer MD [facility] DR [address]-DERMAT [place], [place] [address] (Wo rk) documented [...] 446 ms MUSE SYSTEM (Bezet) Calculated P [place] 37 degrees MUSE SYSTEM Calculated R [place] -23 degrees MUSE SYSTEM Calculated T [place] 116 degrees MUSE SYSTEM INTERPRETATION Normal sinus rhythm MUSE SYSTEM Inferior infarct (cited on or before 25-JAN-2013) ST & T wave abnormality, consider anterolateral ischemia Abnormal ECG When compared with ECG of 19-AUG-2017 10:23, No significant change was found Confirmed by MD Cande, Michael ([id number]) on 09/08/2019 10:22:4 7 AM Specimen Anatomical [...] disease documented in this encounter Care Teams Cutting Room Supervisor Relationship Specialty Start Date End Date Lovely Vicente MD PCP - General 04/16/[address] [place] [address] documented as of this encounter
--- OUTSIDE RECORDS SUMMARY | 2022-05-11 08:42 | XMS_ITS | Encounter Summary ---
:1945 Author Organization [facility] [place] [address] Care Team Providers Name Role Phone Lovely Vicente MD Primary Care Provider Encounter Details Date Type Department Care Team Description 04/16/2021 Laboratory Appointment Lab 3L [facility] [place] [address] Social History Tobacco Use Types Packs/Day Years [...] Dolan MD [facility] [place] [address] (Wo rk) 05/28/2022 Laboratory Appointment Lab 05/28/2022 Office Visit Cardiology Zulma Dolan MD [facility] [place] [address] Liz Poole PA [facility] [place] [address] 06/10/2022 Office Visit Dermatology Laura Scherer MD [facility] ER DR TEJA GR[address]DERMAT [place], [place] [address] (Wo rk) documented as of this encounter [...] Organization Address City/State/[place] [address] (ABNORMAL) Basic Metabolic Panel (non-fasting) (04/16/2021 9:58 AM EDT) athologist Signature Glucose Lvl 77 65 - 199 [facility] mg/dL [facility] LABORATORY [...] Organization Address City/State/[place] [address] documented in this encounter Visit Diagnoses Diagnosis Chronic systolic heart failure documented in this encounter Care Teams Industrial Boilermaker Relationship Specialty Start Date End Date Lovely Vicente MD PCP - General 04/16/[address] [place] [address] documented as of this encounter
--- OUTSIDE RECORDS SUMMARY | 2022-05-11 08:42 | XMS_ITS | Encounter Summary ---
:1945 Author Organization [facility] [place] [address] Care Team Providers Name Role Phone Lovely Vicente MD Primary Care Provider Encounter Details Date Type Department Care Team Description 12/07/2021 External Results Administration [facility] [place] [address] Social History Tobacco Use Types Packs/Day [...] [facility] er [address] [place] [place] [address] (Wo rk) 05/28/2022 Laboratory Appointment Lab 05/28/2022 Office Visit Cardiology Zulma Dolan MD [place] [address] Liz Poole PA [facility] [place] [address] 06/10/2022 Office Visit Dermatology Laura Scherer MD [facility] ER DR [address]MAT [place], [place] [address] (Wo rk) documented as of [...] on filedocumented in this encounter Care Teams Interior Paneler Relationship Specialty Start Date End Date Lovely Vicente MD PCP - General 04/16/[address] [place] [address] documented as of this encounter
--- OUTSIDE RECORDS SUMMARY | 2022-05-11 08:42 | XMS_ITS | Encounter Summary ---
:1945 Author Organization [facility] [place] [address] Care Team Providers Name Role Phone Lovely Vicente MD Primary Care Provider Reason for Referral Diagnostic Test (Routine) - Closed Specialty Diagnoses / Procedures Referred By Contact Refer red To Contact Cardiology Diagnoses Chronic systolic heart failure Danette Maxwell APRN [facility] Non-Inv Card Lab Procedures Echocardiogram Transthoracic(Leb) [facility] [place] [address] [place] [address] Referral ID Status Reason Start Date Expiration Date Visits V isits Requested Authorized [id number] Closed Specialty 07/17/2019 09/14/2019 1 1 Service Requested Reason for Visit Diagnostic Test (Routine) - Closed Specialty Diagnoses / Procedures Referred By Contact Refer red To Contact Cardiology Diagnoses Chronic systolic heart failure Danette Maxwell APRN [facility] Non-Inv Card Lab Procedures Echocardiogram Transthoracic(Leb) [facility] [place] [address] [place] [address] Referral ID Status Reason Start Date Expiration Date Visits V isits Requested Authorized [id number] Closed Specialty 07/17/2019 09/14/2019 1 1 Service Requested Encounter Details Date Type Department Care Team Description 07/28/2019 Hospital Encounter Non-Invasive Chronic s ystolic heart [place]iology [place] [address] Social History Tobacco Use Types Packs/Day [...] Dolan MD [facility] [place], [place] [address] (Wo rk) 05/28/2022 Laboratory Appointment Lab 05/28/2022 Office Visit Cardiology Zulma Dolan MD [facility] [place] [address] Liz Poole PA [facility] [place] [address] 06/10/2022 Office Visit Dermatology Laura Scherer MD [facility] DR [address]DERMAT [place], [place] [address] (Wo rk) documented as of [...] Mccollum ? (Age): 1945(74y) Med Rec#: ? [id number] ?Sex: ?M ? Site Loc: ? [facility] ?Ht / Wt: ??172(cm)/81(kg) Pt. Loc: ?Echo Lab ?BSA: ?1.94 Study Date: ?? 07/28/2019 ?Pt. Type: Outpatient Tape: ? Referring: MARY ELLEN Reading: Ifeanyi Truong ([id number]) Continuous Pickling Line Pickler: Fadumo Flanagan RDCS, FASE Diagnosis: *Chronic systolic [...] E-wave Vmax ?1 ?m/sec ? MV deceleration cixt401.5 ? msec ? MV A-wave Vmax ?1 [...] ? Mid-Inferior ?Hypokinetic ? Mid-Inferoseptal ?Normal ? [place]-Septal ? Normal ? [place]-Anterior ? Hypokinetic ? [place]-Lateral ?Normal ? [place]-Inferior ? Akinetic ? [place]-Tip ?Hypokinetic ? This report has been electronically sign ed by: _ Ifeanyi Truong M.D. ? 07/28/2019 0 8:38:01 Images reviewed and interpretation verif ied [facility] Cardiac Ultrasound Laboratory Procedure Note Ifeanyi Truong MD - 07/28/2019Formatt ing of this note might be different from the original. Procedure: Transthoracic Echocardiogram Patient: NATALYA MCBRIDE(Age): [birth year]74y) Med Rec#: [id number] Sex: M Site Loc: [facility] Ht / Wt: 172(cm)/81(kg) Pt. Loc: Echo Lab BSA: 1.94 Study Date: 07/28/2019 Pt. Type: Outpati ent Tape: Referring: MARY ELLEN Reading: Ifeanyi Truong ([id number]) Continuous Pickling Line Pickler: Fadumo Flanagan [place], [facility] Diagnosis: *Chronic systolic (congestive) heart fa [...] MV E-wave Vmax 1 m/sec MV deceleration jrkr576.5 msec MV A-wave Vmax 1 m/sec MV [...] Normal Mid-Posterolateral Normal Mid-Inferior Hypokinetic Mid-Inferoseptal Normal [place]-Septal Normal [place]-Anterior Hypokinetic [place]-Lateral Normal [place]-Inferior Akinetic [place]-Tip Hypokinetic This report has been electronically sign ed by: _ Ifeanyi Truong M.D. 07/28/2019 08:38:0 1 Images reviewed and interpretation elvie hwang [facility] [...] Routine documented in this encounter Care Teams Visual And Stock Associate Relationship Specialty Start Date End Date Lovely Vicente MD PCP - General 04/16/[address] [place] [address] documented as of this encounter
--- OUTSIDE RECORDS SUMMARY | 2022-05-11 08:42 | XMS_ITS | Encounter Summary ---
:1945 [address] [facility] [place] [address] Care Team Providers Name Role Phone Lovely Vicente MD Primary Care Provider Encounter Details Date Type Department Care Team Description 07/28/2019 Laboratory Appointment Lab 3L [facility] [place] [address] Social History Tobacco Use Types Packs/Day Years [...] MD [facility] er [place], [place] [address] (Wo rk) 05/28/2022 Laboratory Appointment Lab 05/28/2022 Office Visit Cardiology Zulma Dolan MD [facility] [place] [address] Liz Poole PA [facility] [place] [address] 06/10/2022 Office Visit Dermatology Laura Scherer MD [facility] DR [address]DERMAT [place] [address] (Wo rk) documented as of this encounter [...] Organization Address City/State/Z[place] [address] (ABNORMAL) Basic Metabolic Panel (non-fasting) (07/28/2019 8:36 AM EST) athologist Signature Glucose Lvl 153 65 - 199 [facility] mg/dL [facility] LABOR[facility]ORY Comment: [...] of body mass or the acutely ill. http://Dialogic/Ohana Companiesnkf eGFR 81 >=60 mL/min/1.73 m?? [facility] LABORATORY Comment: The eGFR was calculated using the CKD-EP I equation. As with all creatinine based estimates of kidney function, eGFR values calculated with the CKD-EPI equation are not accurate in patients wi th acute kidney failure, extremes of body mass or the acutely ill. http://Dialogic/[facility] PUR[facility]LL[facility]f Specimen Anatomical Collection Method Collection Time Receive d Time (Source) Location / / Volume Laterality Blood specimen 07/28/2019 8:36 AM 020 8:46 (specimen) EST AM EST Resulting Agency Comment Spec In Lab Danette Maxwell APRN CHEMISTRY ORDERABLES Performing Organization Address City/State/ZIP [place] [address] documented in this encounter Visit Diagnoses Diagnosis Chronic systolic heart failure documented in this encounter Care Teams Craft Demonstrator Relationship Specialty Start Date End Date Lovely Vicente MD PCP - General 04/16/[address] [place] [address] documented as of this encounter
--- OUTSIDE RECORDS SUMMARY | 2022-05-11 08:42 | XMS_ITS | Encounter Summary ---
:1945 [place] [address] Care Team Providers Name Role Phone Lovely Vicente MD Primary Care Provider Encounter Details Date Type Department Care Team Description 04/16/2021 Office Visit Cardiology at [facility] Liz Poole, Chronic systolic heart [facility] [place] [address] Cardiology Dept [phone] [place], [place] [address] Social History Tobacco Use Types [...] was feeling good. 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 07/07/2019 - 07/21/2019 Zio Patch Garnett Machine Operator Helper The patient had a minimum heart [...] K+ 5.2 today 6. Post-op atrial fibrillation [id number] (CHF, HTN, DM, vascular disease, thromboembolism) [...] Cardiology Zulma Dolan MD [facility] [place], [place] [address] (Wo rk) 05/28/2022 Laboratory Appointment Lab 05/28/2022 Office Visit Cardiology Zulma Dolan MD [facility] [place] [address] Liz Poole PA [facility] [place] [address] 06/10/2022 Office Visit Dermatology Laura Scherer MD [facility] [address] [place], [place] [address] (Wo rk) documented as of this encounter Results (ABNORMAL) Basic Metabolic Panel (non-fasting) (04/16/2021 9:58 AM EDT) athologist Signature Glucose Lvl 77 65 - 199 [facility] mg/dL [facility] Comment: Diabetes: >=200 mg/dL plus symp toms BUN 23 (H) 10 - 20 mg/dL [facility] Creatinine 1.26 0.80 - 1.50 [...] estions. Chloride 103 98 - 107 mmol/L [facility] CO2 28 22 - 31 mmol/L [facility] Anion Gap 9 5 - 15 mmol/L [facility] Calcium 9.3 8.5 - 10.5 mg/dL [facility] Estimated GFR 55 (L) >=60 mL/min/1.73 m?? [facility] [...] Address City/State/[place] [address] (ABNORMAL) pro-Brain Natriuretic Peptide (04/16/2021 9:58 AM EDT) P athologist Signature ProBNP 523 (H) <=124 pg/mL [facility] Specimen Anatomical Collection Method Collection Time Receive d Time (Source) Location / / Volume Laterality Blood 04/16/2021 9:58 AM EDT 10:02 AM EDT Resulting Agency Comment Spec In Lab Zulma Plunkett MD CHEMISTRY ORDERABLES Performing Organization Address City/State/[place] [address] documented in this encounter Visit Diagnoses Diagnosis Chronic systolic heart failure documented in this encounter Care Teams Animal Trainer Supervisor Relationship Specialty Start Date End Date Lovely Vicente MD PCP - General 04/16/[address] [place] [address] documented as of this encounter
--- OUTSIDE RECORDS SUMMARY | 2022-05-11 08:42 | XMS_ITS | Encounter Summary ---
:1945 [place] [address] Care Team Providers Name Role Phone Lovely Vicente MD Primary Care Provider Encounter Details Date Type Department Care Team Description 12/07/2021 Ancillary Procedure [facility] Lovely murillo MD [facility] [address] [address] [place], [place] [phone] (Wo lissa) [phone] Social History Tobacco Use Types Packs/Day Years [...] Dolan MD [place] [address] Liz Poole PA [facility] [place] [address] 06/10/2022 Office Visit Dermatology Laura Scherer MD [facility] [address] [place], [place] [address] (Wo rk) documented [...] Organization Address City/State/ZIP Code Phon e Number [place], [place] documented in this encounter Visit Diagnoses Not on filedocumented in this encounter Care Teams Crop Scout Relationship Specialty Start Date End Date Lovely Vicente MD PCP - General 04/16/[address] [place] [address] documented as of this encounter
--- OUTSIDE RECORDS SUMMARY | 2022-05-11 08:42 | XMS_ITS | Encounter Summary ---
:1945 Author Organization [facility] [place] [address] Care Team Providers Name Role Phone Lovely Vicente MD Primary Care Provider Encounter Details Date Type Department Care Team Description 12/07/2021 Telephone Cardiology Eddi Briceño Jr., [facility] [place] [address] [facility] [phone] CARDIOLOGY DEPT [place], [place] [address] (Wo rk) Social History Tobacco [...] the OSH ED provider/staff member. Referring Location: [facility] Referring Provider: Marisela Dean, LOSS PREVENTION COORDINATOR [address] [place] [address] Don Veda Kushal 76 y.o. w / [...] bpm, LAFB, poor R wave progression, septal FL, and lateral STD, overall no significantchange from [...] Appointment Cardiology Zulma Dolan MD [facility] [place] [address] (Wo rk) 05/28/2022 Laboratory Appointment Lab 05/28/2022 Office Visit Cardiology Zulma Dolan MD [facility] [place] [address] Liz Poole PA [facility] [place] [address] 06/10/2022 Office Visit Dermatology Laura Scherer MD [facility] [address] [place], [place] [address] (Wo rk) documented as of this encounter Visit Diagnoses Not on filedocumented in this encounter Care Teams Gas Distribution Supervisor Relationship Specialty Start Date End Date Lovely Vicente MD PCP - General 04/16/15 [facility] [address] [place] [address] documented as of this encounter
--- OUTSIDE RECORDS SUMMARY | 2022-05-11 08:42 | XMS_ITS | Encounter Summary ---
:1945 Author Organization [facility] [place] [address] Care Team Providers Name Role Phone Lovely Vicente MD Primary Care Provider Reason for Visit Auth/Cert Specialty Diagnoses / Procedures Referred By Contact Refer red To Contact Diagnoses NSTEMI Procedures emerg ipi Referral ID Status Reason Start Date Expiration Date Visits Requ ested Visits Authorized [id number] 1 1 Encounter Details Date Type Department Care Team Description 12/10/2021 Surgery Restaurant Culinary Manager Asa Coulter MD CARDIAC CATHETERIZATION [facility] [address] [place] [address] [place] [address] [phone] (Wo rk) Social History Tobacco Use Types [...] Peter PA-C Kelly LaFlamme PA-C Cardiovascular Medicine [phone] Discharge Diagnoses (Hospital Problems) and Secondary Diagnoses [...] 3.75 guiding catheter and a 3.5 Fr [place] [facility] [place] 20 Mhz using Manual pullback. Imaging was successful. Image quality was good. The ostial LCX showed moderate diffuse atherosclerotic plaque with scattered three quadrant calcification. Measurements were performed after pre-dilation. Post Intervention: The stent was well expanded and apposed. Intravascular Ultrasound was performed in the distal LM using a 7 Fr EBU 3.75 guiding catheter and a 3.5 Fr [place] [facility] [place] 20 Mhz using Manual pullback. [...] require modification of this regimen. Consult [facility] Interventional Cardiology [...] appointments: During 8am-5pm Wednesday through Wednesday call [phone] to speak with a nurse in the cardiology clinic All other times call [phone] and ask to speak to the spa receptionist preparation plant supervisor. Return to work: One week Driving: No driving for 48 hours after catheterization. Follow up Appointments: PCP Lovely Vicente MD [phone] to see patient at the end of December for annual check up. Patient to see Dr. Lorenzana at 1120 am at December 19 for a post hospital check up. Aircraft Instrument Tester Dr. De Oliveira to see you in [facility]. Left a message for office to set a date and time. Please call [phone] Nobles to see the patient for a same day cath in 2-3 weeks from now. Office to call with a date and time. For questions please call [phone] Home oxygen therapy: N/A Arrangements for VNA/home care: none Future Appointments and Orders Future Orders Complete By Expires Basic Metabolic Panel (non-fasting) [LAB15 Custom] 12/19/2021 (Approximate) 12/12/2022 Process Instructions: INCLUDES: Calcium, BUN, Creat, GFR, Glucose, Lytes Scheduling Instructions: Comments: Questions: Referral to Cardiac Rehab [[id number] Custom] As directed Process Instructions: If no [...] appointments: During 8am-5pm Wednesday through Wednesday call [phone] to speak with a nurse in the cardiology clinic All other times call [phone] and ask to speak to the spa receptionist preparation plant supervisor. Return to work: One week Driving: No driving for 48 hours after catheterization. Follow up Appointments: PCP Lovely Vicente MD [phone] to see patient at the end of December for annual check up. Patient to see Dr. Lorenzana at 1120 am at December 19 for a post hospital check up. Aircraft Instrument Tester Dr. De Oliveira to see you in [facility]. Left a message for office to set a date and time. Please call [phone] Nobles to see the patient for a same day cath in 2-3 weeks from now. Office to call with a date and time. For questions please call [phone] Home oxygen therapy: N/A Arrangements for VNA/home [...] Progress Note Patient Name: Don Fatima Service: COFFEE BLENDER / PA Responsible Attending: Ifeanyi Truong MD [...] was given Lasix 80mg IV x1 in skilled laborer. Tolerated procedure well. Home today at [...] with MD Janneth Neville PA 12/12/2021 Pager [phone] Associated attestation - Ifeanyi Truong MD - [...] for each meal) Desirae Jett APRN [facility] Endocrinology Diabetes Management Pager [phone] 20 minutes of this 35 minute visit [...] Progress Note Patient Name: Don Fatima Service: COFFEE BLENDER / PA Responsible Attending: Iker Cuevas MD [...] was given Lasix 80mg IV x1 in skilled laborer. Tolerated procedure well. Review of Systems: [...] Intake/Output Summary (Last 24 hours) at 12/11/2021 0986 Last data filed at 12/11/2021 0508 Gross [...] Cuevas MD [facility] Total time spent on review of records prior to visit, face to face time with patient during visit, documentation, and coordination of care with other clinicians: 25 minutes. . Iker Cuevas MD - 12/10/2021 12:30 PM EDT Images from the original note were not included. Inpatient Cardiology Progress Note Patient Name: Don Fatima Service: COFFEE BLENDER / PA Responsible Attending: Iker Cuevas MD [...] was given Lasix 80mg IV x1 in skilled laborer. Tolerated procedure well. Review of Systems: [...] TROPONINT 1.13* 0.92* 0.89* Pertinent Radiographic/Diagnostic Results: R/[facility] 12/10/21 Hemodynamics: Right Heart Pressures Resting: Syst [...] Discussed with MD Migdalia Peter PA-C Pager #[phone] 12/10/2021 Cardiology Attending Note I have seen [...] Cuevas MD [facility] Total time spent on review of records prior to visit, face to face time with patient during visit, documentation, and coordination of care with other clinicians: 35 minutes. Iker Cuevas MD - 12/09/2021 7:28 AM EDT Images from the original note were not included. Inpatient Cardiology Progress Note Patient Name: Don Fatima Service: COFFEE BLENDER / PA Responsible Attending: Iker Cuevas MD [...] Discussed with MD Migdalia Peter PA-C Pager #[phone] 12/09/2021 Cardiology Attending Note I have seen [...] < 70 -CPAP tonight Iker Taverass MD [facility] Total time spent on review of [...] POLYPECTOMY, REMOVAL LESION BY SNARE performed by Nhoemi Jaimes MD at [facility] ENDOSCOPY [...] Monitor for ADRs. Trend troponins. Admission EKG. [facility] 12/09; consented. TTE. Telemetry monitoring, daily weights, [...] code #Diet-carb control; n.p.o. after midnight for [facility] #DVT prophy- heparin infusion #GI prophy- PPI Discussed with MD Morgan Peter PA-C APP2 pager [phone] 12/08/2021 Cardiology Attending Note I have seen [...] is type 1 due to graft or flandreau coronary stenosis vs acute injury from CHF. 3. PAF: currrently in NSR. Have replaced warfarin with heparin 4. PAD: stable 5. DM: stable 6. CKD: will monitor and minimize contrast. Pt very appreciative of Dr. Yuan Retana's care in 2018. Will let him know patient is here. Iker Cuevas MD [facility] documented in this encounter Miscellaneous Notes [...] Type: *No Product type* / Secondary Insurance: [employer] [place] Prescription Coverage: Yes This plan was [...] cath without complications. Migdalia Parker PA-C Pager #[phone] 12/10/2021 Initial Assessments - Nick Georges RN [...] COVID test: Lab Results Component Value Date [id number] Not Detected 12/08/2021 Past medical History: Past [...] days) Any patient receiving care at [facility] must abide by [place] law. The hierarchy [...] The agent with financial power of civil litigation attorney or a conservator appointed in accordance [...] standard, cane - straight Home Address: [address] [place] [address] [place] [address] Social & Family Supports: All names listed below confirmed with patient as current and correct Extended Emergency Contact Information Primary Emergency Contact: Kisha Fatima Address: [address] [place] [address] [place] [address] [facility] Mobile Relation: Spouse Secondary Emergency Contact: Elba Swenson Address: [place], [place] [id number] [place] [address] Mobile Relation: Child Current Care Provided by: [...] [facility] Prescription Coverage: Yes Preferred Pharmacy: [facility] [id number] - [place], [place] - [address] [address] [place] Status: Patient is a : unable to assess Primary Care Provider: Lovely Vicente MD [phone] Patient/Caregiver Goals of Treatment: Get out of here Potential Needs for Transition of Care: none Agency Referrals: none patient has used [facility] in the past Transportation: no concerns Transportation Anticipated: family or friend will provide Concerns to be Addressed: patient refuses services, discharge planning Assessment: Patient is admitted to [facility] Service pager [phone] for 76 y.o.??male??with h/o??CAD s/p 3vCABG (THOMPSON-LAD, [...] status on current unit. Nick Georges RN service operator, Office of Care Management Pager: [phone] Brief Op Note - Vitaliy Nobles MD - 12/10/2021 8:31 AM EDT Images from the original note were not included. [facility] [place] [address] CORONARY ANGIOGRAM AND PERCUTANEOUS CORONARY INTERVENTION REPORT Patient: Don Fatima : 1945 MR number: [id number] Date of Service: 12/10/2021 Motor Vehicle Compliance Analyst: Vitaliy Nobles MD Fellow: [place] MD [...] andis managed by his PCP. Lives in [place], [place] with his . States that he [...] your patient Desirae Jett APRN Endocrinology Pager [phone] 70 minutes of this 80 minute visit [...] PMH of CAD s/p post 3V CABG (THOMPOSN-LAD, sequential SVG-OM1-D1) 07/07/2017, ischemic cardiomyopathy with LVEF [...] for further details. STEPHANIE Rebolledo 12/08/2021 Pager [phone] documented in this encounter Plan of Treatment Upcoming Encounters Date Type Specialty Care Team Description 05/28/2022 Appointment Cardiology Zulma Dolan MD [facility] [place], [place] [address] (Wo lissa) 05/28/2022 Laboratory Appointment Lab 05/28/2022 Office Visit Cardiology Zulma Dolan MD [facility] [place] [address] Liz Poole PA [facility] [place] [address] 06/10/2022 Office Visit Dermatology Laura Scherer MD [facility] DR TEJA GR[facility] [place], [place] [address] (Wo rk) Scheduled Referrals Name [...] POC Glucose 215 (H) 65 - 199 [facility] mg/dL [facility] LAB[facility]ORY Comment: Supplemental ranges: <140 mg/dL before meals <180 mg/dL all other times of the day Specimen Anatomical Collection Method Collection Time Receive d Time (Source) Location / / Volume Laterality Blood 12/12/2021 7:42 AM 7:42 EDT AM EDT Ifeanyi Truong MD POINT OF CARE TEST ORDERABLE S Performing Organization Address City/State/[place] [address] (ABNORMAL) Differential, Automated (12/12/2021 4:51 AM EDT) athologist Signature Neutrophils % 75.4 % [facility] LAB[facility] Neutr Abs (ANC) 5.95 1.70 - [facility] 6.10 [facility] x10(3)/[facility] LABORATORY Lymphocytes % 12.2 % [facility] Lymphocytes Abs 1.0 0.9 - 3.2 [facility] x10(3)/[facility] LABORATORY Monocytes % 9.5 % [facility] Monocyte Abs 0.8 0.3 - 0.9 [facility] x10(3)/[facility] LABORATORY Eosinophils % 1.8 % [facility]ORY Eosinophils Abs 0.1 0.0 - 0.4 [facility] x10(3)/[facility] LABORATORY Basophils % 0.5 % [facility] Basophils Abs 0.0 0.0 - 0.1 [facility] x10(3)/[facility] [...] Address City/State/ZIP Code Phon e Number [address] (ABNORMAL) Hemogram (12/12/2021 4:51 AM EDT) Analysis Performed At Patho logist Time Signature WBC 7.9 4.0 - 9.5 [facility] x[facility](3[facility] LABORATORY RBC 4.19 (L) 4.58 - [place] 5.54 [facility] x10(6)/[facility] LABORATORY Hemoglobin 12.1 (L) 13.7 - [place] 16.5 g/dL [facility] LAB[facility]ORY Hematocrit 36.7 (L) 40.5 - [facility] 48.5 % [facility] MCV 87.6 82.9 - [facility] 93.1 [facility] LABORATORY MCH 28.9 27.5 - [place] 32.[address] [facility] LABORATORY MCHC 33.0 32.0 - [place] 35.7 g/dL [facility] Platelets 231 145 - 357 [facility] x10(3)/[facility] LABORATORY RDWSD 47.2 (H) 36.0 - [facility] R[facility] 45.0 [facility] LABORATORY RDWCV 14.6 (H) 11.4 - [facility] 13.8 % [facility] LABORATORY MPV 9.5 7.6 - 12.9 [facility] LABORATORY nRBC % Auto 0.0 % [facility] nRBC Abs Auto 0.000 0.000 - [place] 0.000 [facility] x10(3)/[facility] LABORATORY Specimen Anatomical Collection Method Collection Time Receive d Time (Source) Location / / Volume Laterality Blood 12/12/2021 4:51 AM 2 5:06 EDT AM EDT Resulting Agency Comment Spec In Lab Bijan Sun MD HEMATOLOGY ORDERABLES Performing Organization Address City/[facility]/[place] [address] (ABNORMAL) Prothrombin Time (12/12/2021 4:51 AM EDT) athologist Signature PT 14.9 (H) 9.4 - 12.5 [facility] LABORATORY INR 1.3 [facility] LABORATORY [...] Comment Spec In Lab Iekr Cuevas MD HEMATOLOGY ORDERABLES Performing Organization Address City/State/[place] [address] (ABNORMAL) BMP w/fasting Glucose (12/12/2021 4:51 AM EDT) athologist Signature Glucose 152 (H) 65 - 99 [facility] Fasting mg/dL [facility] Comment: ?Fasting* Glucose Interpretive C [...] of Diabetes Mellitus, Position Statement from the [place] [employer]. ??Diabete s Care, Volume 33, [...] Organization Address City/State/[place] [address] Magnesium (12/12/2021 4:51 AM EDT) athologist Signature Magnesium 1.02 0.69 - 1.07 [place] mmol/L [facility] LABORATORY Specimen Anatomical Collection Method Collection Time Receive d Time (Source) Location / / Volume Laterality Blood 12/12/2021 4:51 AM 2 5:06 EDT AM EDT Resulting Agency Comment Spec In Lab Iker Cuevas MD CHEMISTRY ORDERABLES Performing Organization Address City/[facility]/ZIP Code Phon e Number [address] POCT Glucose (12/12/2021 3:43 [...] Address City/State/ZIP Code Phon e Number [address] POCT Glucose (12/11/2021 11:44 [...] Address City/State/ZIP Code Phon e Number [address] (ABNORMAL) POCT Glucose (12/11/2021 [...] Organization Address City/State/[place] [address] (ABNORMAL) POCT Glucose (12/11/2021 [...] Organization Address City/State/[place] [address] (ABNORMAL) POCT Glucose (12/11/2021 4:00 PM EDT) P athologist Signature POC Glucose 383 (H) 65 - [address] [facility] mg/dL [facility] [...] Organization Address City/State/[place] [address] (ABNORMAL) POCT Glucose (12/11/2021 [...] Address City/State/ZIP Code [place] [address] COVID-19 PCR (12/11/2021 10:13 AM EDT) [facility] Method Time Signature SARS-CoV-2 Not [...] diagnosis of COVID-19 is performed using the [employer] RONNA S-CoV-2 Assay as authorized by the FDA Emergency Use Authorization (EUA). This EUA assay is intended for In-vitro Diagnostic (IVD) use with respiratory sp ecimens such as nasopharyngeal swabs collected from individuals during the ac [place] phase of infection. This assay is performed based on the instructions for use provided by [employer] and additional guidance provided by CDC and FDA. Testing is performed in the Clinical Genomics and Advanced Technolog y Laboratory within the Department of Pathology and Laboratory Medicine at [facility], certified under the Clinical [...] is infected. As required or requested by [facility] health [facility], positive specimens may be sent for [...] clinical management guidance information are available at [facility] CDC Coronavirus Disease 2019 (COVID-19) webpage under Information fo r Healthcare Professionals (https://www.cdc.gov/coronavirus/2019-nc ov/hcp/index.html) Additional information about this and ot her EUA tests can be found in provider and patient fact sheets at the following FDA website: https://www.fda.gov/medical-devices/sbysjqbnfig-efvyknm-1226-fbxqf-22-jjmgwkeho- qcw-vbjpdjafglcucs-aqmgxxh-devices/jqved-bjkfqcmqhes-kszm SARS-Cov-2 RNA Source COFFEE BLENDER Swab [facility] LABORATORY Specimen (Source) Anatomical Collection Method Collection Time Re ceived Time Location / / Volume Laterality Nasopharyngeal Swab 12/11/2021 10:13 11/23 AM EDT 11:16 AM EDT Comment: Symptoms->Surveillance Resulting Agency Comment Spec In Lab Iker Cuevas MD MICROBIOLOGY - GENERAL ORDER [place] Performing Organization Address City/State/[place] [address] POCT Glucose (12/11/2021 7:34 AM EDT) P athologist Signature POC Glucose 198 65 - 199 [facility] mg/dL [facility] [...] Organization Address City/State/[place] [address] (ABNORMAL) POCT Glucose (12/11/2021 5:07 AM EDT) P athologist Signature POC Glucose 208 (H) 65 - 199 [facility] mg/dL [facility] Comment: Supplemental ranges: <140 mg/dL before meals <180 mg/dL all other times of the day Specimen Anatomical Collection Method Collection Time Receive d Time (Source) Location / / Volume Laterality Blood 12/11/2021 5:07 AM 2 5:07 EDT AM EDT Iker Cuevas MD POINT OF CARE TEST ORDERABLE S Performing Organization Address City/State/[place] [address] (ABNORMAL) Differential, Automated (12/11/2021 4:28 AM EDT) Patholo gist Method Time Signature Neutrophils % 79.6 % [facility] Neutr Abs (ANC) 7.01 (H) 1.70 - [facility] 6.10 [facility] x10(3)/[facility] LABORATORY Lymphocytes % 9.1 % [facility]ORATORY Lymphocytes Abs 0.8 (L) 0.9 - 3.2 [facility] x10(3)/[facility] LABORATORY Monocytes % 9.2 % [facility]OR[facility]ORY Monocyte Abs 0.8 0.3 - 0.9 [facility] x10(3)/[facility] LABORATORY Eosinophils % 1.3 % [facility]OR[facility]ORY Eosinophils Abs 0.1 0.0 - 0.4 [facility] x10(3)/[facility] LABORATORY Basophils % 0.5 % [facility] LABORATORY Basophils Abs 0.0 0.0 - 0.1 [facility] x10(3)/[facility] LABORATORY Immature Gran % [...] - 0.04 x10(3)/[facility] MAR Y [facility] LABORATORY Specimen Anatomical Collection Method Collection Time Receive d Time (Source) Location / / Volume Laterality Blood 12/11/2021 4:28 AM 4:37 EDT AM EDT Resulting Agency Comment Spec In Lab Bijan Sun MD HEMATOLOGY ORDERABLES Performing Organization Address City/State/ZIP Code Phon e Number [place] [id number] (ABNORMAL) Hemogram (12/11/2021 4:28 AM EDT) Analysis Performed At Patho logist Time Signature WBC 8.8 4.0 - 9.5 [facility] x10(3)/[facility] LABORATORY RBC 4.15 (L) 4.58 - [place] 5.54 [facility] x10(6)/[facility] LABORATORY Hemoglobin 11.9 (L) 13.7 - [facility] 16.5 g/dL [facility] LABORATORY Hematocrit 36.9 (L) 40.5 - [facility] 48.5 % [facility] LABORATORY MCV 88.9 82.9 - [facility] 93.1 [facility] LABORATORY MCH 28.7 27.5 - [place] 32.[address] [facility] LABORATORY MCHC 32.2 32.0 - [facility] 35.7 g/dL [facility] LABORATORY Platelets 211 145 - 357 [facility] x10(3)/[facility] LABORATORY RDWSD 48.3 (H) 36.0 - [facility] 45.0 [facility] LABORATORY RDWCV 14.8 (H) 11.4 - [facility] 13.8 % [facility] LABORATORY MPV 9.6 7.6 - 12.9 [facility] LABORATORY nRBC % Auto 0.0 % [facility] LABORATORY nRBC Abs Auto 0.000 0.000 - [facility] 0.000 [facility] x10(3)/[facility] LABORATORY Specimen Anatomical Collection Method Collection Time Receive d Time (Source) Location / / Volume Laterality Blood 12/11/2021 4:28 AM 2 4:37 EDT AM EDT Resulting Agency Comment Spec In Lab Bijan Sun MD HEMATOLOGY ORDERABLES Performing Organization Address City/[facility]/ZIP [facility] [place] [place] [address] (ABNORMAL) Prothrombin Time (12/11/2021 4:28 AM EDT) P athologist Signature PT 17.7 (H) 9.4 - 12.5 [facility] LABORATORY INR 1.6 [facility] LABORATORY [...] Cuevas MD HEMATOLOGY ORDERABLES Performing Organization Address City/[facility]/[place] [address] (ABNORMAL) BMP w/fasting Glucose (12/11/2021 4:28 AM EDT) P athologist Signature Glucose 207 (H) 65 - 99 [facility] Fasting mg/dL [facility] Comment: ?Fasting* Glucose Interpretive C [...] of Diabetes Mellitus, Position Statement from the [place] [employer]. ??Diabete s Care, Volume 33, [...] Cuevas MD CHEMISTRY ORDERABLES Performing Organization Address City/[facility]/[place] [address] Magnesium (12/11/2021 4:28 AM EDT) athologist Signature Magnesium 1.04 0.69 - 1.07 [facility] mmol/L [facility] LABOR[facility]ORY Specimen Anatomical Collection Method Collection Time Receive d Time (Source) Location / / Volume Laterality Blood 12/11/2021 4:28 AM 2 4:37 EDT AM EDT Resulting Agency Comment Spec In Lab Iker Cuevas MD CHEMISTRY ORDERABLES Performing Organization Address City/[facility]/ZIP Code Phon e Number [address] POCT Glucose (12/11/2021 3:58 [...] [facility] [address] (ABNORMAL) POCT Glucose (12/10/2021 [...] [facility] [address] (ABNORMAL) POCT Glucose (12/10/2021 7:54 PM EDT) athologist Signature POC Glucose 225 (H) 65 - 199 [facility] mg/dL [facility] LABOR[facility]ORY [...] [facility]/[place] [address] Potassium (12/10/2021 7:46 PM EDT) athologist [facility] Potassium 4.2 3.5 - 5.0 [facility] mmol/L [facility] LABOR[facility]ORY Comment: Please note: ??Patients with [...] Cuevas MD CHEMISTRY ORDERABLES Performing Organization Address City/[facility]/ZIP [facility] [place] [address] HOSPITAL [address] (ABNORMAL) Basic Metabolic Panel (non-fasting) (12/10/2021 6:12 PM EDT) athologist Signature Glucose Lvl 246 (H) 65 - 199 [facility] mg/dL [facility] [...] Address City/State/ZIP Code Phon e Number [address] POCT Glucose (12/10/2021 4:59 PM EDT) P athologist Signature POC Glucose 158 65 - 199 [facility]dL [facility] LABORATORY Comment: Supplemental ranges: <140 mg/dL before meals <180 mg/dL all other times of the day Specimen Anatomical Collection Method Collection Time Receive d Time (Source) Location / / Volume Laterality Blood 12/10/2021 4:59 PM 2 4:59 EDT PM EDT Iker Cuevas MD POINT OF CARE TEST ORDERABLE S Performing Organization Address City/State/[place] [address] (ABNORMAL) POCT Glucose (12/10/2021 12:43 PM EDT) P athologist Signature POC Glucose 241 (H) 65 - 199 [facility] mg/dL [facility] LABORATORY Comment: Supplemental ranges: <140 mg/dL before meals <180 mg/dL all other times of the day Specimen Anatomical Collection Method Collection Time Receive d Time (Source) Location / / Volume Laterality Blood 12/10/2021 12:43 12/10/2021 PM EDT 12:43 PM EDT Iker Cuevas MD POINT OF CARE TEST ORDERABLE S Performing Organization Address City/State/[place] [address] EKG 12 Lead (12/10/2021 11:17 AM EDT) Component Value Ref Range Test Analysis Performed Pathologis t Method Time At Signature Ventricular rate 62 BPM MUSE SYSTEM Atrial Rate 62 BPM MUSE SYSTEM P-R Interval 142 ms MUSE SYSTEM QRS Duration 100 ms MUSE SYSTEM Q-T Interval 434 ms MUSE SYSTEM QTC Calculated 440 ms MUSE SYSTEM (Bezet) Calculated P [place] 34 degrees MUSE SYSTEM Calculated R [place] -39 degrees MUSE SYSTEM Calculated T [place] 92 degrees MUSE SYSTEM INTERPRETATION Normal sinus rhythm MUSE SYSTEM Left axis deviation Minimal voltage criteria for LVH, may be normal variant ( Aston product ) Cannot rule out Inferior infarct [...] ? Procedure Date: 12/10/2021 ? A #: [id number] ? Primary Physician: Nobles, Vitaliy P ? Case #: [id number] ? File Name: [id number] ? Catheterization Order Number: [id number] ? [facility] ? Final Report [place], [place] ? Patient Name: ? Don E. Stewa rt ? ID#: ?[id number] ? : ?1945 ? Procedure Date: ? [...] ?* Arterial Blood Gases ? History ?Don Fatiam is a 76 year o ld man. [...] procedure was Urgent. The indication for ?the skilled laborer visit is ACS great er than [...] ?3.75 guiding catheter and a 3.5 Fr [facility] 20 Mhz using Manual ?pullback. [...] ?3.75 guiding catheter and a 3.5 Fr [facility] 20 Mhz using Manual ?pullback. [...] ?modification of this regimen. C [facility] Interventional [facility]iology for ?questions. ?The 1 year [...] Don Fatima Procedure Date: 12/10/2021 A #: [id number] Primary Physician: Vitaliy Nobles Case #: [id number] File Name: [id number] Catheterization Order Number: [id number] [facility] [employer] [facility] Final Report [place], [place] Patient Name: Don Fatima [...] e was Urgent. The indication for the skilled laborer visit is ACS greater than 24 [...] x 15 mm NC balloon to 24 adrshan to post-dilate the LM part of th [...] require modification of this regimen. Consult [facility] [...] POC Glucose 262 (H) 65 - 199 [facility] mg/dL [facility] [...] Organization Address City/State/[place] [address] (ABNORMAL) POCT Glucose (12/10/2021 [...] [facility]/[place] [address] (ABNORMAL) POCT Glucose (12/10/2021 [...] Organization Address City/State/[place] [address] (ABNORMAL) Point of Care Blood Gas Historical (12/10/2021 9:04 AM EDT) [facility] Method Time Signature POC pH 7.40 7.35 - [facility] 7.[address] [facility] LABORATORY POC PCO2 40 35 - 45 [facility] LABORATORY POC PO2 63 (L) 85 - 104 [facility] LABORATORY POC Base Excess 0.0 -3.0 - 3.0 [facility] K mmol/L [facility] LABORATORY POC HCO3 24.8 20.0 - [facility] 26.0 [facility] POC Sodium 143 135 - 145 [facility] mmol/L [facility] LABORATORY POC Potassium 3.7 3.5 - 5.0 [facility] mmol/L [facility] LABORATORY POC Ionized Ca 1.07 (L) 1.15 - [facility] 1.33 [facility] LAB[facility] POC Hematocrit 30.0 (L) 40.0 - [facility] 51.0 % [facility] POC Calc Hgb 10.2 (L) 13.7 - [facility] 17.5 g/dL [facility] LABORATORY Comment: The calculation of hemoglobin f rom hematocrit assumes a normal MCHC. POC Bgas Loc CC LAB [facility] LABORATORY Specimen Anatomical Collection Method Collection Time Receive d Time (Source) Location / / Volume Laterality Blood 12/10/2021 9:04 AM 2 EDT 12:00 PM EDT Ifeanyi Truong MD CHEMISTRY ORDERABLES Performing Organization Address City/State/[place] [address] (ABNORMAL) POCT Glucose (12/10/2021 7:19 AM EDT) P athologist Signature POC Glucose 274 (H) 65 - 199 [facility] mg/dL [facility] [...] Organization Address City/State/[place] [address] Heparin (unfractionated) Level (12/10/2021 4:25 AM EDT) P athologist Signature Heparin UFH 0.69 IU/mL [facility] [...] City/State/ZIP Code Phon e Number [place] [id number]OS[address] (ABNORMAL) Differential, Automated (12/10/2021 4:25 AM EDT) Patholo gist Method Time Signature Neutrophils % 79.8 % [facility] LABORATORY Neutr Abs (ANC) 7.47 (H) 1.70 - [facility] 6.10 [facility] x10(3)/[facility] LABORATORY Lymphocytes % 10.6 % [facility] LABORATORY Lymphocytes Abs 1.0 0.9 - 3.2 [facility] x10(3)/[facility] LABORATORY Monocytes % 8.4 % [facility] LABORATORY Monocyte Abs 0.8 0.3 - 0.9 [facility] x10(3)/[facility] LABORATORY Eosinophils % 0.6 % [facility] LABORATORY Eosinophils Abs 0.1 0.0 - 0.4 [facility] x10(3)/[facility] LABORATORY Basophils % 0.2 % [facility] LABORATORY Basophils Abs 0.0 0.0 - 0.1 [facility] x10(3)/[facility] LABORATORY Immature Gran % [...] Melisa Gran Abs 0.04 0.00 - 0.04 x10(3)/[facility] MAR Y [facility] LABORATORY Specimen Anatomical Collection Method Collection Time Receive d Time (Source) Location / / Volume Laterality Blood 12/10/2021 4:25 AM 4:34 EDT AM EDT Resulting Agency Comment Spec In Lab Morgan BROWN HEMATOLOGY ORDERABLES Performing Organization Address City/State/[place] [address] (ABNORMAL) Hemogram (12/10/2021 4:25 AM EDT) Analysis Performed At Patho logist Time Signature WBC 9.4 4.0 - 9.5 [facility] x10(3)/[facility] LABORATORY RBC 3.81 (L) 4.58 - [facility] 5.54 [facility] x10(6)/[facility] LABORATORY Hemoglobin 11.1 (L) 13.7 - [facility] 16.5 g/dL [facility] LABORATORY Hematocrit 34.0 (L) 40.5 - [facility] 48.5 % [facility] LABORATORY MCV 89.2 82.9 - [facility] 93.1 [facility] LABORATORY MCH 29.1 27.5 - [facility] 32.[address] [facility] LABORATORY MCHC 32.6 32.0 - [facility] 35.7 g/dL [facility] LABORATORY Platelets 183 145 - 357 [facility] x10(3)/[facility] LABORATORY RDWSD 49.9 (H) 36.0 - [facility] R[facility] 45.0 [facility] LABORATORY RDWCV 15.2 (H) 11.4 - [facility] 13.8 % [facility] LABORATORY MPV 9.8 7.6 - 12.9 [facility] LABORATORY nRBC % Auto 0.0 % [facility] LABORATORY nRBC Abs Auto 0.000 0.000 - [place] 0.000 [facility] x10(3)/[facility] LABORATORY Specimen Anatomical Collection Method Collection Time Receive d Time (Source) Location / / Volume Laterality Blood 12/10/2021 4:25 AM 2 4:34 EDT AM EDT Resulting Agency Comment Spec In Lab Morgan BROWN HEMATOLOGY ORDERABLES Performing Organization Address City/[facility]/ZIP Code Phon e Number [address] (ABNORMAL) Prothrombin Time (12/10/2021 4:25 AM EDT) P athologist Signature PT 20.0 (H) 9.4 - 12.5 [facility] LABORATORY INR 1.7 [facility] LABORATORY [...] Cuevas MD HEMATOLOGY ORDERABLES Performing Organization Address City/[facility]/[place] [address] (ABNORMAL) BMP w/fasting Glucose (12/10/2021 4:25 AM EDT) P athologist Signature Glucose 210 (H) 65 - 99 [facility] Fasting mg/dL [facility] LABORATORY Comment: ?Fasting* Glucose Interpretive C [...] of Diabetes Mellitus, Position Statement from the [place] [employer]. ??Diabete s Care, Volume 33, [...] Organization Address City/State/[place] [address] Magnesium (12/10/2021 4:25 AM EDT) athologist Signature Magnesium 0.95 0.69 - 1.07 [facility] mmol/L [facility] LABORATORY Specimen Anatomical Collection Method Collection Time Receive d Time (Source) Location / / Volume Laterality Blood 12/10/2021 4:25 AM 2 4:34 EDT AM EDT Resulting Agency Comment Spec In Lab Iker Cuevas MD CHEMISTRY ORDERABLES Performing Organization Address City/[facility]/[place] [address] POCT Glucose (12/10/2021 1:58 [...] [facility]/ZIP Code Phon e Number [address] (ABNORMAL) POCT Glucose (12/09/2021 [...] [facility]/[place] [address] Heparin (unfractionated) Level (12/09/2021 [...] Organization Address City/State/[place] [address] (ABNORMAL) Basic Metabolic Panel (non-fasting) (12/09/2021 7:30 PM EDT) athologist Signature Glucose Lvl 372 (H) 65 - 199 [facility] mg/dL [facility] LABORATORY [...] Organization Address City/State/[place] [address] (ABNORMAL) POCT Glucose (12/09/2021 [...] Organization Address City/State/[place] [address] (ABNORMAL) POCT Glucose (12/09/2021 6:32 PM EDT) athologist Signature POC Glucose 356 (H) 65 - 199 [facility] mg/dL [facility] LABORATORY [...] [facility]/[place] [address] (ABNORMAL) POCT Glucose (12/09/2021 4:19 PM EDT) athologist Signature POC Glucose 347 (H) 65 - 199 [facility] mg/dL [facility] LABORATORY Comment: Supplemental ranges: <140 mg/dL before meals <180 mg/dL all other times of the day Specimen Anatomical Collection Method Collection Time Receive d Time (Source) Location / / Volume Laterality Blood 12/09/2021 4:19 PM 2 4:19 EDT PM EDT Iker Cuevas MD POINT OF CARE TEST ORDERABLE S Performing Organization Address City/State/[place] [address] Heparin (unfractionated) Level (12/09/2021 [...] Organization Address City/State/[place] [address] (ABNORMAL) POCT Glucose (12/09/2021 12:02 PM EDT) athologist Signature POC Glucose 235 (H) 65 - 199 [facility] mg/dL [facility] LABORATORY Comment: Supplemental ranges: <140 mg/dL before meals <180 mg/dL all other times of the day Specimen Anatomical Collection Method Collection Time Receive d Time (Source) Location / / Volume Laterality Blood 12/09/2021 12:02 12/09/2021 PM EDT 12:02 PM EDT Iker Cuevas MD POINT OF CARE TEST ORDERABLE S Performing Organization Address City/State/[place] [address] (ABNORMAL) POCT Glucose (12/09/2021 [...] [facility]/[place] [address] EKG 12 Lead (12/09/2021 7:57 AM EDT) Component Value Ref Range Test Analysis Performed Pathologis t Method Time At Signature Ventricular rate 101 BPM MUSE SYSTEM Atrial Rate 101 BPM MUSE SYSTEM P-R Interval 150 ms MUSE SYSTEM QRS Duration 112 ms MUSE SYSTEM Q-T Interval 364 ms MUSE SYSTEM QTC Calculated 471 ms MUSE SYSTEM (Bezet) Calculated P [place] 59 degrees MUSE SYSTEM Calculated R [place] -42 degrees MUSE SYSTEM Calculated T [place] 102 degrees MUSE SYSTEM INTERPRETATION Sinus tachycardia Occasional Premature ventricular com plexes MUSE SYSTEM Left axis deviation 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 LABORATORY [...] City/State/ZIP Code Phon e Number [place] [phone]OS[address] Drive (ABNORMAL) Hemoglobin A1c (12/09/2021 [...] Mellitus, Diabetes Care 2013; 36: Suppl. 1, J17-12 Est Avg Gluc See note mg/dL ST. [...] into estimated average glucose values. ??Diabetes Care 2008:31(8):2917-6427. Specimen Anatomical Collection Method Collection Time Receive d Time (Source) Location / / Volume Laterality Blood Venous Draw / 12/09/2021 6:18 AM 12/10/19 22 Unknown EDT 12:24 PM EDT Resulting Agency Comment Spec In Lab Migdalia BRONW CHEMISTRY ORDERABLES Performing Organization Address [facility] [place] [address] (ABNORMAL) Prothrombin Time (12/09/2021 6:18 AM EDT) athologist Signature PT 26.6 (H) 9.4 - 12.5 [facility] LABORATORY INR 2.3 [facility] LABORATORY [...] ORDERABLES Performing Organization Address [facility] [place] [address] Heparin (unfractionated) Level (12/09/2021 [...] Organization Address City/State/[place] [address] (ABNORMAL) Differential, Automated (12/09/2021 6:18 AM EDT) [facility] Method Time Signature Neutrophils % 91.5 % [facility] LABORATORY Neutr Abs (ANC) 15.78 (H) 1.70 - [facility] 6.10 [facility] x10(3)/[facility] LABORATORY Lymphocytes % 2.9 % [facility] LABORATORY Lymphocytes Abs 0.5 (L) 0.9 - 3.2 [facility] x10(3)/[facility] LABORATORY Monocytes % 4.9 % [facility] LABORATORY Monocyte Abs 0.8 0.3 - 0.9 [facility] x10(3)/[facility] LABORATORY Eosinophils % 0.0 % [facility] LABORATORY Eosinophils Abs 0.0 0.0 - 0.4 [facility] x10(3)/[facility] LABORATORY Basophils % 0.2 % [facility] LABORATORY Basophils Abs 0.0 0.0 - 0.1 [facility] x10(3)/[facility] LABORATORY Immature Gran % [...] Gran Abs 0.09 (H) 0.00 - 0.04 x10(3)/[facility] LABORATORY Specimen Anatomical Collection Method Collection Time Receive d Time (Source) Location / / Volume Laterality Blood 12/09/2021 6:18 AM 6:33 EDT AM EDT Resulting Agency Comment Spec In Lab Morgan BROWN HEMATOLOGY ORDERABLES Performing Organization Address City/State/[place] [address] (ABNORMAL) Hemogram (12/09/2021 6:18 AM EDT) Analysis Performed At Patho logist Time Signature WBC 17.2 (H) 4.0 - 9.5 [facility] x10(3)/[facility] LABORATORY RBC 4.32 (L) 4.58 - [facility] 5.54 [facility] x10(6)/[facility] LABORATORY Hemoglobin 12.6 (L) 13.7 - [facility] 16.5 g/dL [facility] LABORATORY Hematocrit 38.9 (L) 40.5 - [facility] 48.5 % [facility] LABORATORY MCV 90.0 82.9 - [facility] 93.1 [facility] LABORATORY MCH 29.2 27.5 - [facility] 32.[address] [facility] LABORATORY MCHC 32.4 32.0 - [facility] 35.7 g/dL [facility] LABORATORY Platelets 193 145 - 357 [facility] x10(3)/[facility] LABORATORY RDWSD 50.4 (H) 36.0 - [facility] RY[facility] 45.0 [facility] LABORATORY RDWCV 15.2 (H) 11.4 - [facility] 13.8 % [facility] LABORATORY MPV 9.5 7.6 - 12.9 [facility] LABORATORY nRBC % Auto 0.0 % [facility] LABORATORY nRBC Abs Auto 0.000 0.000 - [facility] 0.000 [facility] x10(3)/[facility] LABORATORY Specimen Anatomical Collection Method Collection Time Receive d Time (Source) Location / / Volume Laterality Blood 12/09/2021 6:18 AM 6:33 EDT AM EDT Resulting Agency Comment Spec In Lab Morgan BROWN HEMATOLOGY ORDERABLES Performing Organization Address City/State/[place] [address] Lipid Panel (Reflex Direct LDL) (12/09/2021 6:18 AM EDT) athologist Signature Chol, Total 105 mg/dL [facility] LABORATORY Comment: Lower Risk: <200 mg/dL Average Risk: 200-239 mg/dL Higher Risk: >an=644 mg/dL Triglycerides 133 mg/dL [facility] LABORATORY Comment: Average Risk/Lower Risk: <150 mg/dL Borderline High Risk: 150-199 mg/dL High Risk: 200-499 mg/dL Very High Risk: >gw=520 mg/dL HDL 42 mg/dL [facility] LABORATORY Comment: Males: ?? Higher Risk: <40 mg/dL Females: ?? Higher Risk: <50 mg/dL LDL Cholesterol 36 mg/dL [facility] LABORATORY Comment: Lowest Risk: <100 mg/dL Lower Risk: 100-129 mg/dL Borderline High Risk: 130-159 mg/dL High Risk: 160-189 mg/dL Very High Risk: >dj=630 mg/dL Chol/HDL Ratio 2.5 ratio [facility] LABORATORY Lipid Interpretation See Note [facility] LABORATORY Comment: Lipid management should be guided by a p atient? s ASCVD risk, goals and preferences. ACC/AHA Guidelines recommend high intens ity statin if clinical ASCVD or LDL greater than or equal to 190 mg/dL. http://tinyurl.com/HUY-YAO-Ojuveszwu Adults aged 40-75 with LDL 70-189 mg/dL should have their 10 year ASCVD risk estimated with the ACC/AHA ASCVD risk es timator http://tools.acc.org/QCMRN-Jntx-Pbkrstyw r/ Statin should be discussed if risk [...] Cuevas MD CHEMISTRY ORDERABLES Performing Organization Address City/[facility]/ZIP Code Phon e Number [address] TSH (12/09/2021 6:18 AM EDT) P athologist Signature TSH 1.60 0.27 - 4.20 [facility] [employer] ([employer])CK mcIU/mL [facility] LABORATORY Comment: Reference Interval (mcIU/mL): Females: ??First Trimester: 0.23-3.88 ??Second Trimester: 0.22-3.90 ??Third Trimester: 0.44-4.66 Specimen Anatomical Collection Method Collection Time Receive d Time (Source) Location / / Volume Laterality Blood 12/09/2021 6:18 AM 2 6:33 EDT AM EDT Resulting Agency Comment Spec In Lab Iker Cuevas MD CHEMISTRY ORDERABLES Performing Organization Address City/[facility]/[place] [address] Hepatic Function Panel (12/09/2021 6:18 AM EDT) P athologist Signature Total Protein 7.3 6.1 - 8.0 [facility] g/dL [facility] LABORATORY Albumin 4.2 3.2 - 5.2 [facility] g/dL [facility] LABORATORY AST 25 0 - 39 [facility] unit/L [facility] LABORATORY ALT 15 0 - 55 [facility] unit/L [facility] LABORATORY Alk Phos 75 40 - 130 [facility] unit/L [facility] LABORATORY Total 1.1 0.2 - 1.3 [facility] Bilirubin mg/dL [facility] LABORATORY Bili, Direct 0.2 0.0 - 0.3 [facility] mg/dL [facility] LABORATORY Specimen Anatomical Collection Method Collection Time Receive d Time (Source) Location / / Volume Laterality Blood 12/09/2021 6:18 AM 6:33 EDT AM EDT Resulting Agency Comment Spec In Lab Iker Cuevas MD CHEMISTRY ORDERABLES Performing Organization Address City/State/[place] [address] (ABNORMAL) BMP w/fasting Glucose (12/09/2021 6:18 AM EDT) athologist Signature Glucose 235 (H) 65 - 99 [facility] Fasting mg/dL [facility] LABORATORY Comment: ?Fasting* Glucose Interpretive C [...] of Diabetes Mellitus, Position Statement from the [place] [employer]. ??Diabete s Care, Volume 33, [...] Cuevas MD CHEMISTRY ORDERABLES Performing Organization Address City/[facility]/ZIP Code Phon e Number [address] Magnesium (12/09/2021 6:18 AM EDT) P athologist Signature Magnesium 0.81 0.69 - 1.07 [facility] mmol/L [facility] LABORATORY Specimen Anatomical Collection Method Collection Time Receive d Time (Source) Location / / Volume Laterality Blood 12/09/2021 6:18 AM 2 6:33 EDT AM EDT Resulting Agency Comment Spec In Lab Iker Cuevas MD CHEMISTRY ORDERABLES Performing Organization Address City/[facility]/ZIP Code Phon e Number [address] (ABNORMAL) Troponin (12/09/2021 6:18 AM EDT) P athologist Signature Troponin-T 1.13 (H) 0.00 - [facility] 0.00 ng/mL [facility] LABORATORY Comment: The 99th percentile for [...] additional sample may be indicated. Reference: Third [place] Definition of Myocardial Infarction. Journal of the [place] [employer] 2012;60:1581-98 Specimen Anatomical Collection Method Collection Time Receive d Time (Source) Location / / Volume Laterality Blood 12/09/2021 6:18 AM 6:33 EDT AM EDT Resulting Agency Comment Spec In Lab Iker Cuevas MD CHEMISTRY ORDERABLES Performing Organization Address City/State/ZIP Code [place] [address] XR Chest One View [...] have questions please contact the health healthcare customer service that requested your imaging first. ? Narrative [...] have questions please contact the health healthcare customer service that requested your imaging first. Amber Sanches MD IMG DX ORDERABLES (ABNORMAL) BLOOD GAS 2 ARTERIAL (12/09/2021 5:14 AM EDT) Analysis Performed At Patho logist Time Signature pH Art 7.43 7.35 - [facility] 7.[address] [facility] LABORATORY pCO2 Art 36 35 - 45 [facility] mmHg [facility] LABORATORY pO2 Art 67 (L) 85 - 104 [facility] LABORATORY HCO3 Art 23.4 20.0 - [facility] 26.0 [facility] mmol/[facility] BE Art -0.9 -3.0 - 3.0 [facility] mmol/L [facility] Hgb Blood Gas 13.2 (L) 13.7 - [facility] 16.5 g/dL [facility] O2HB Art 91.3 (L) 94.0 - [facility] 97.0 % [facility] COHB Art 0.4 % [facility] [...] Bld 223 (H) 65 - 199 mg/dL [facility] [...] Cuevas MD CHEMISTRY ORDERABLES Performing Organization Address City/[facility] [place] [address] POCT Glucose (12/09/2021 4:46 AM EDT) P athologist Signature POC Glucose 198 65 - 199 [facility] mg/dL [facility] [...] [facility]/[place] [address] (ABNORMAL) POCT Glucose (12/09/2021 3:01 AM EDT) P athologist Signature POC Glucose 225 (H) 65 - 199 [facility] mg/dL [facility] Comment: Supplemental ranges: <140 mg/dL before meals <180 mg/dL all other times of the day Specimen Anatomical Collection Method Collection Time Receive d Time (Source) Location / / Volume Laterality Blood 12/09/2021 3:01 AM 2 3:01 EDT AM EDT Iker Cuevas MD POINT OF CARE TEST ORDERABLE S Performing Organization Address City/State/[place] [address] (ABNORMAL) POCT Glucose (12/08/2021 10:55 PM EDT) athologist Signature POC Glucose 327 (H) 65 - 199 [facility] mg/dL [facility] [...] [facility]/[place] [address] Heparin (unfractionated) Level (12/08/2021 [...] Organization Address City/State/[place] [address] (ABNORMAL) Troponin (12/08/2021 10:03 PM EDT) athologist Signature Troponin-T 0.92 (H) 0.00 - BARBARA DAVIS 0.00 ng/mL [facility] Comment: The 99th percentile for [...] additional sample may be indicated. Reference: Third [place] Definition of Myocardial Infarction. Journal of the [place] [employer] 2012;60:1581-98 Specimen Anatomical Collection Method Collection Time Receive d Time (Source) Location / / Volume Laterality Blood 12/08/2021 10:03 12/08/2021 PM EDT 10:31 PM EDT Resulting Agency Comment Spec In Lab Iker Cuevas MD CHEMISTRY ORDERABLES Performing Organization Address City/State/ZIP Code Phon e Number [facility] [place] [address] (ABNORMAL) POCT Glucose (12/08/2021 8:22 PM EDT) athologist Signature POC Glucose 429 (H) 65 - 199 [facility] DAV[facility] mg/dL [facility] [...] [facility]/ZIP Code Phon e Number [address] (ABNORMAL) POCT Glucose (12/08/2021 7:06 PM EDT) athologist Signature POC Glucose 442 (H) 65 - 199 [facility] mg/dL [facility] [...] [facility]/[place] [address] Magnesium (12/08/2021 6:02 PM EDT) athologist Signature Magnesium 0.86 0.69 - 1.07 [facility] mmol/L [facility] Specimen Anatomical Collection Method Collection Time Receive d Time (Source) Location / / Volume Laterality Blood 12/08/2021 6:02 PM 2 6:36 EDT PM EDT Resulting Agency Comment Spec In Lab Iker Cuevas MD CHEMISTRY ORDERABLES Performing Organization Address City/[facility]/[place] [address] (ABNORMAL) Basic Metabolic Panel (non-fasting) (12/08/2021 6:02 PM EDT) athologist Signature Glucose Lvl 392 (H) 65 - 199 [facility] mg/dL [facility] [...] Organization Address City/State/[place] [address] (ABNORMAL) Differential, Automated (12/08/2021 6:02 PM EDT) [facility] gist Method Time Signature Neutrophils % 89.5 % [facility]ORATORY Neutr Abs (ANC) 13.97 (H) 1.70 - [facility] 6.10 [facility] x10(3)/[facility] LABORATORY Lymphocytes % 3.7 % [facility]OR[facility]ORY Lymphocytes Abs 0.6 (L) 0.9 - 3.2 [facility] x10(3)/[facility] LABORATORY Monocytes % 6.1 % [facility] LABOR[facility]ORY Monocyte Abs 1.0 (H) 0.3 - 0.9 [facility] x10(3)/[facility] LABORATORY Eosinophils % 0.0 % [facility]OR[facility]ORY Eosinophils Abs 0.0 0.0 - 0.4 [facility] x10(3)/[facility] LABORATORY Basophils % 0.2 % [facility] LABOR[facility]ORY Basophils Abs 0.0 0.0 - 0.1 [facility] x10(3)/[facility] LABORATORY Immature Gran % [...] Gran Abs 0.08 (H) 0.00 - 0.04 x10(3)/[facility] LABORATORY Specimen Anatomical Collection Method Collection Time Receive d Time (Source) Location / / Volume Laterality Blood 12/08/2021 6:02 PM 6:36 EDT PM EDT Resulting Agency Comment Spec In Lab Morgan BROWN HEMATOLOGY ORDERABLES Performing Organization Address City/State/[place] [address] (ABNORMAL) Hemogram (12/08/2021 6:02 PM EDT) Analysis Performed At Patho logist Time Signature WBC 15.6 (H) 4.0 - 9.5 [facility] x10(3)/[facility] LABORATORY RBC 4.05 (L) 4.58 - [facility] 5.54 [facility] x10(6)/[facility] LABORATORY Hemoglobin 11.8 (L) 13.7 - BARBARA ZHAORYAN 16.5 g/dL [facility] Hematocrit 35.8 (L) 40.5 - [place] [place] 48.5 % [facility] MCV 88.4 82.9 - [place] [place] 93.1 [facility] LABORATORY MCH 29.1 27.5 - BARBARA ZHAORYAN 32.[address] [facility]ORY MCHC 33.0 32.0 - BARBARA ZHAORYAN 35.7 g/dL [facility] Platelets 178 145 - 357 [facility] x10(3)/[facility] LABORATORY RDWSD 49.3 (H) 36.0 - BARBARA ZHAORYAN 45.0 [facility] LABORATORY RDWCV 15.1 (H) 11.4 - BARBARA RYAN 13.8 % [facility]OR[facility]ORY MPV 10.4 7.6 - 12.9 [facility] fL [facility] LABORATORY nRBC % Auto 0.0 % [facility] LABORATORY nRBC Abs Auto 0.000 0.000 - BARBARA ZHAORYAN 0.000 [facility] x10(3)/[facility] LABORATORY Specimen Anatomical Collection Method Collection Time Receive d Time (Source) Location / / Volume Laterality Blood 12/08/2021 6:02 PM 6:36 EDT PM EDT Resulting Agency Comment Spec In Lab Morgan BROWN HEMATOLOGY ORDERABLES Performing Organization Address City/State/[place] [address] (ABNORMAL) Troponin (12/08/2021 6:02 PM EDT) P athologist Signature Troponin-T 0.89 (H) 0.00 - [place] VILLAREAL[place] 0.00 ng/mL [facility] Comment: The 99th percentile for [...] additional sample may be indicated. Reference: Third [place] Definition of Myocardial Infarction. Journal of the [place] College of Cardiology 2012;60:1581-98 Specimen Anatomical Collection Method Collection Time Receive d Time (Source) Location / / Volume Laterality Blood 12/08/2021 6:02 PM 6:36 EDT PM EDT Resulting Agency Comment Spec In Lab Iker Cuevas MD CHEMISTRY ORDERABLES Performing Organization Address City/State/ZIP Code Phon e Number [place] [id number]OS[address] LAB[address] COVID-19 PCR (12/08/2021 5:00 PM EDT) [facility] Method Time Signature SARS-CoV-2 Not Detected Not Detected BARBARA RNA PCR [facility] LABORATORY [...] using the Simplexa COVID-19 Direct Assay by [employer] as authorized by the FDA issued Emergency [...] Department of Pathology and Laboratory Medicine at [facility], certified under the Clinical Laboratory Improvement Amendmen [...] fact sheets at the following FDA website: https://www.fda.gov/medical-devices/wbgkjhnuzvq-dfsuhqw-5302-rkayw-93-pgehuyhrz- xof-igvklmwoxmevir-hqhddlv-devices/zdnkv-untrbjcnwii-cowq SARS-CoV-2 Source COFFEE [employer]ENDER Swab [facility] LABORATORY Specimen (Source) Anatomical Collection Method Collection Time Re ceived Time Location / / Volume Laterality Nasopharyngeal Swab 12/08/2021 5:00 12/08 PM EDT 6:03 PM EDT Comment: Symptoms->Surveillance Resulting Agency Comment Spec In Lab Iker Cuevas MD MICROBIOLOGY - GENERAL ORDER ROBSON Performing Organization Address City/State/[place] [address] EKG 12 Lead (12/08/2021 4:40 PM EDT) Component Value Ref Range Test Analysis Performed Pathologis t Method Time At Signature Ventricular rate 78 BPM MUSE SYSTEM Atrial Rate 78 BPM MUSE SYSTEM P-R Interval 152 ms MUSE SYSTEM QRS Duration 96 ms MUSE SYSTEM Q-T Interval 396 ms MUSE SYSTEM QTC Calculated 451 ms MUSE SYSTEM (Bezet) Calculated P [place] 44 degrees MUSE SYSTEM Calculated R [place] -31 degrees MUSE SYSTEM Calculated T [place] 124 degrees MUSE SYSTEM INTERPRETATION Normal sinus [...] POC Glucose 400 (H) 65 - 199 [facility] mg/dL [facility] [...] Organization Address City/State/[place] [address] documented in this encounter [...] Given 11/23 10:30 AM EDT 300 mcg (DIRECTOR OF INDUSTRIAL RELATIONS) ONCE PRN, Starting on Wed12/10/21 at 1030, [...] ine 0.9) flush 5 mL 0805 ([facility] Hold - Provider: Admin Adt - Reason: Transfer to a Procedural area)0900 (Not Given - Provider: Emma Garcia RN - Reason: Transfer to a Procedural area)1230 ([facility] Unhold - Provider: Admin Adt)1746 (Given - [...] acetaminophen (Tylenol) tablet 650 mg 0805 ([facility] Hold - Provider: Admin Adt - Reason: Transfer to a Procedural area)1230 ([facility] Unhold - Provider: Admin Adt) 650 mg, [...] bisacodyL (Dulcolax) suppository 10 mg 0805 ([facility] Hold - Provider: Admin Adt - Reason: Transfer to a Procedural area)1230 ([facility] Unhold - Provider: Admin Adt) 10 mg, [...] (Intra-Procedure), Routine niCARdipine (Cardene) (100 mcg/mL) dilution (DIRECTOR OF INDUSTRIAL RELATIONS) (CANCELED) 1030 (Given - Provider: Vitaliy Nobles [...] episode. & nbsp; For persistent hypoglycemia, con systems integration engineer longer-acting treatment for the duration of [...]
Routine documented in this encounter Care Teams Sliver Lapper Relationship Specialty Start Date End Date Lovely Vicente MD PCP - General 04/16/[address] [place] [address] documented as of this encounter
--- OUTSIDE RECORDS SUMMARY | 2022-05-11 08:42 | XMS_ITS | Encounter Summary ---
:1945 Author Organization [facility] [place] [address] Care Team Providers Name Role Phone Lovely Vicente MD Primary Care Provider Encounter Details Date Type Department Care Team Description 03/20/2021 Ancillary Procedure Radiology Library [place] [address] [place] [address] [phone] Social History Tobacco Use Types Packs/Day Years [...] [facility] [place], [place] [address] (Wo rk) 05/28/2022 Laboratory Appointment Lab 05/28/2022 Office Visit Cardiology Zulma Dolan MD [facility] [place] [address] Liz Poole PA [facility] [place] [address] 06/10/2022 Office Visit Dermatology Laura Scherer MD [facility] ER [address] [place], [place] [address] (Wo rk) documented as [...] Address City/State/ZIP Code Phon e Number [place], [place] documented in this encounter Visit Diagnoses Not on filedocumented in this encounter Care Teams Special Agent Secret Service Relationship Specialty Start Date End Date Lovely Vicente MD PCP - General 04/16/[address] [place] [address] documented as of this encounter
--- OUTSIDE RECORDS SUMMARY | 2022-05-11 08:42 | XMS_ITS | Encounter Summary ---
:1945 [place] [address] Care Team Providers Name Role Phone Lovely Vicente MD Primary Care Provider Encounter Details Date Type Department Care Team Description 07/12/2019 Office Visit Dermatology at Selina Garcia, Rigoberto Yarbrough (actinic keratosis); MD SHAY Quick III (seborrheic keratosis); [address] [facility] Multiple benign nevi; [place] [address] History of melanoma [phone] [facility] [place], [place] [address] Social History Tobacco Use Types [...] Zulma Dolan MD [facility] [address] [place], [place] [address] (Wo rk) 05/28/2022 Laboratory Appointment Lab 05/28/2022 Office Visit Cardiology Zulma Dolan MD [facility] [place] [address] Liz Poole PA [facility] [place] [address] 06/10/2022 Office Visit Dermatology Laura Scherer MD [facility] [address] [place], [place] 0[address] (Wo rk) documented as of this encounter Visit Diagnoses Diagnosis AK (actinic keratosis) Actinic keratosis SK (seborrheic keratosis) Other seborrheic keratosis Multiple benign nevi Benign neoplasm of skin, site unspecifie d History of melanoma Personal history of malignant melanoma o f skin documented in this encounter Care Teams Log Haul Chain Feeder Relationship Specialty Start Date End Date Lovely Vicente MD PCP - General 04/16/15 [facility] [address] [place] [address] documented as of this encounter
--- OUTSIDE RECORDS SUMMARY | 2022-05-11 08:42 | XMS_ITS | Encounter Summary ---
:1945 Author Organization [facility] [place] [address] Care Team Providers Name Role Phone Lovely Vicente MD Primary Care Provider Encounter Details Date Type Department Care Team Description 07/28/2019 Office Visit Cardiology at [facility] Danette Maxwell Chronic systolic heart failu re; [facility] A, STACIE ASHD (arteriosclerotic heart disease); Drive [facility] S/P CABG x 3; [place], [place] MARIA VICTORIA (obstructive sleep apnea) on CPAP; [phone] CARDIOLOGY Mixed hyperlipidemia [phone] [place], [place] [address] Social History Tobacco Use Types [...] in this encounter Progress Notes Danette Maxwell, DOOR CLAMP OPERATOR - 07/28/2019 9:40 AM EST Images [...] regurgitation present. 07/07/2019 - 07/21/2019 Zio Patch Torpedo Worker The patient had a minimum heart [...] K+ 4.5 today 6. Post-op atrial fibrillation [id number] (CHF, HTN, DM, vascular disease, thromboembolism) [...] advised: Refer to EP (Dr. Mcelroy in [place]) 5. Heart Failure Clinic follow up scheduled for: 3 months with proBNP and BMP Danette Maxwell APRN 07/28/2019 documented in this encounter Plan of Treatment Upcoming Encounters Date Type Specialty Care Team Description 05/28/2022 Appointment Cardiology Zulma Dolan MD [facility] [place], [place] [address] (Wo rk) 05/28/2022 Laboratory Appointment Lab 05/28/2022 Office Visit Cardiology Zulma Dolan MD [facility] [place] [address] Liz Poole PA [facility] [place] [address] 06/10/2022 Office Visit Dermatology Laura Scherer MD [facility] [address] [place], [place] [address] (Wo rk) documented as of this encounter Results (ABNORMAL) Basic Metabolic Panel (non-fasting) (07/28/2019 8:36 AM EST) P athologist Signature Glucose Lvl 153 65 - 199 [facility] mg/dL [facility] LABORATORY [...] of body mass or the acutely ill. http://[employer]/[facility] eGFR 81 >=60 mL/min/1.73 m?? [facility] LABOR[facility]ORY Comment: The eGFR was calculated using the CKD-EP I equation. As with all creatinine based estimates of kidney function, eGFR values calculated with the CKD-EPI equation are not accurate in patients wi th acute kidney failure, extremes of body mass or the acutely ill. http://[employer]/[facility] CITYnkf Specimen Anatomical Collection Method Collection Time Receive d Time (Source) Location / / Volume Laterality Blood specimen 07/28/2019 8:36 AM 020 8:46 (specimen) EST AM EST Resulting Agency Comment Spec In Lab Danette Maxwell APRN CHEMISTRY ORDERABLES Performing Organization Address City/State/ZIP Code Phon e Number [address] (ABNORMAL) pro-Brain Natriuretic Peptide [...] [facility]/[place] [address] documented in this encounter Visit Diagnoses Diagnosis Chronic systolic heart failure ASHD (arteriosclerotic heart disease) Coronary atherosclerosis of unspecified type of vessel, [place] or graft S/P CABG x 3 Postsurgical aortocoronary bypass status MARIA VICTORIA (obstructive sleep apnea) on CPAP Obstructive sleep apnea (adult) (pediatr ic) Mixed hyperlipidemia documented in this encounter Care Teams Air Valve Mechanic Relationship Specialty Start Date End Date Lovely Vicente MD PCP - General 04/16/[address] [place] [address] documented as of this encounter
--- OUTSIDE RECORDS SUMMARY | 2022-05-11 08:42 | XMS_ITS | Encounter Summary ---
:1945 Author Organization [facility] [place] [address] Care Team Providers Name Role Phone Lovely Vicente MD Primary Care Provider Encounter Details Date Type Department Care Team Description 11/07/2019 [place] Visit Cardiology [place] [facility] Danette Maxwell (arteriosclerotic heart disease); (TeleHealth) [facility] STACIE Gomes Cardiomyopathy, ischemic; Drive [facility] S/P CABG x 3; [place], [place] MARIA VICTORIA (obstructive sleep apnea) on CPAP [phone] CARDIOLOGY [phone] [place], [place] [address] Social History Tobacco Use [...] regurgitation present. 07/07/2019 - 07/21/2019 Zio Patch Drug Worker The patient had a minimum heart [...] at last check 6. Post-op atrial fibrillation [id number] (CHF, HTN, DM, vascular disease, thromboembolism) [...] Zulma Dolan MD [facility] [place], [place] [address] (Wo rk) 05/28/2022 Laboratory Appointment Lab 05/28/2022 Office Visit Cardiology Zulma Dolan MD [facility] [place] [address] Liz Poole PA [facility] [place] [address] 06/10/2022 Office Visit Dermatology Laura Scherer MD [facility] [address] [place], [place] [address] (Wo rk) documented as of this encounter Visit Diagnoses Diagnosis ASHD (arteriosclerotic heart disease) Coronary atherosclerosis of unspecified type of vessel, [place] or graft Cardiomyopathy, ischemic Other specified forms of chronic ischemi c heart disease S/P CABG x 3 Postsurgical aortocoronary bypass status MARIA VICTORIA (obstructive sleep apnea) on CPAP Obstructive sleep apnea (adult) (pediatr ic) documented in this encounter Care Teams Shipping Room Supervisor Relationship Specialty Start Date End Date Lovely Vicente MD PCP - General 04/16/[address] [place], [place] [address] documented as of this encounter
--- OUTSIDE RECORDS SUMMARY | 2022-05-11 08:42 | XMS_ITS | Encounter Summary ---
:1945 Author Organization [facility] [address] Care Team Providers Name Role Phone Lovely Vicente MD Primary Care Provider Encounter Details Date Type Department Care Team Description 03/20/2021 Ancillary Procedure Radiology Library [place] [address] [place] [address] [phone] Social History Tobacco Use Types Packs/Day Years [...] Dolan MD [facility] [place], [place] [address] (Wo rk) 05/28/2022 Laboratory Appointment Lab 05/28/2022 Office Visit Cardiology Zulma Dolan MD [facility] [place] [address] Liz Poole PA [facility] [place] [address] 06/10/2022 Office Visit Dermatology Laura Scherer MD [facility] [address] [place], [place] [address] (Wo rk) documented as [...] Code Phon e Number [place], [place] documented in this encounter Visit Diagnoses Not on filedocumented in this encounter Care Teams Community Health Advocate Relationship Specialty Start Date End Date Lovely Vicente MD PCP - General 04/16/[address] [place] [address] documented as of this encounter
--- OUTSIDE RECORDS SUMMARY | 2022-05-11 08:42 | XMS_ITS | Encounter Summary ---
:1945 Author Organization [facility] [place] [address] Care Team Providers Name Role Phone Lovely Vicente MD Primary Care Provider Encounter Details Date Type Department Care Team Description 12/08/2021 External Results Non-Invasive Cardiology Lab Mar y None [facility] [place] [address] Social History Tobacco Use Types Packs/Day [...] MD [facility] [place], [place] [address] (Wo rk) 05/28/2022 Laboratory Appointment Lab 05/28/2022 Office Visit Cardiology Zulma Dolan MD [facility] [place] [address] Liz Poole PA [facility] [place] [address] 06/10/2022 Office Visit Dermatology Laura Scherer MD [facility] [address] [place], [place] [address] (Wo rk) documented as [...] filedocumented in this encounter Care Teams Outside Salesman Relationship Specialty Start Date End Date Lovely Vicente MD PCP - General 04/16/[address] [place] [address] documented as of this encounter
--- OUTSIDE RECORDS SUMMARY | 2022-05-11 08:43 | XMS_ITS | Encounter Summary ---
:1945 Author Organization [facility] [place] [address] Care Team Providers Name Role Phone Lovely Vicente MD Primary Care Provider Encounter Details Date Type Department Care Team Description 08/15/2018 Laboratory Lab 3L K[place]ina Chronic systoli c heart failure; Appointment [facility] ASCVD (ar teriosclerotic cardiovascular disease) [place] [address] Social History Tobacco Use Types [...] Dolan MD [facility] er [address] [place], [place] [address] (Wo rk) 05/28/2022 Laboratory Appointment Lab 05/28/2022 Office Visit Cardiology Zulma Dolan MD [facility] [place] [address] Liz Poole PA [facility] [place] [address] 06/10/2022 Office Visit Dermatology Laura Scherer MD [facility] [address] [place], [place] [address] (Wo rk) documented as [...] Signature Glucose Lvl 116 65 - 199 [facility] mg/dL [facility] Comment: Diabetes: [...] of body mass or the acutely ill. http://PharmaGen/[facility]ANTnkf eGFR 79 >=60 mL/min/1.73 m?? [facility] Comment: The eGFR was calculated using the CKD-EP I equation. As with all creatinine based estimates of kidney function, eGFR values calculated with the CKD-EPI equation are not accurate in patients wi th acute kidney failure, extremes of body mass or the acutely ill. http://PharmaGen/[facility]ANTnkf Specimen Anatomical Collection Method Collection Time Receive d Time (Source) Location / / Volume Laterality Blood specimen 08/15/2018 8:04 AM 019 8:20 (specimen) EST AM EST Resulting Agency Comment Spec In Lab Danette Maxwell APRN CHEMISTRY ORDERABLES Performing Organization Address City/State/[place] [address] Lipid Panel (08/15/2018 8:04 AM EST) P athologist Signature Chol, Total 75 mg/dL [facility] Comment: Lower Risk: <200 mg/dL Average Risk: 200-239 mg/dL Higher Risk: >rr=842 mg/dL Triglycerides 185 mg/dL [facility] Comment: Average Risk/Lower Risk: <150 mg/dL Borderline High Risk: 150-199 mg/dL High Risk: 200-499 mg/dL Very High Risk: >gs=498 mg/dL HDL 32 mg/dL [facility] Comment: Males: ?? Higher Risk: <40 mg/dL Females: ?? HIgher Risk: <50 mg/dL LDL Cholesterol 6 mg/dL [facility] Comment: Lowest Risk: <100 mg/dL Lower Risk: 100-129 mg/dL Borderline High Risk: 130-159 mg/dL High Risk: 160-189 mg/dL Very High Risk: >qf=444 mg/dL Chol/HDL Ratio 2.3 ratio [facility] Lipid Interpretation See Note [facility] Comment: Lipid management should be guided by a p atient? s ASCVD risk, goals and preferences. ACC/AHA Guidelines recommend high intens ity statin if clinical ASCVD or LDL greater than or equal to 190 mg/dL. http://[employer].com/UAZ-YPG-Ccyebwdbp Adults aged 40-75 with LDL 70-189 mg/dL should have their 10 year ASCVD risk estimated with the ACC/AHA ASCVD risk es timator http://tools.acc.org/XDIPN-Svmb-Fpvbeoiz r/ Statin should be discussed if risk [...] City/State/[place] [address] (ABNORMAL) pro-Brain Natriuretic Peptide (08/15/2018 8:04 AM EST) athologist Signature ProBNP 1,797 (H) <=125 [facility] pg/mL [facility] Specimen Anatomical Collection Method Collection Time Receive d Time (Source) Location / / Volume Laterality Blood specimen 08/15/2018 8:04 AM 019 8:20 (specimen) EST AM EST Resulting Agency Comment Spec In Lab Danette Maxwell APRN CHEMISTRY ORDERABLES Performing Organization Address City/State/[place] [address] documented in this encounter Visit Diagnoses Diagnosis Chronic systolic heart failure ASCVD (arteriosclerotic cardiovascular d isease) Unspecified cardiovascular disease documented in this encounter Care Teams Harvest Worker Relationship Specialty Start Date End Date Lovely Vicente MD PCP - General 04/16/[address] [place] [address] documented as of this encounter
--- OUTSIDE RECORDS SUMMARY | 2022-05-11 08:43 | XMS_ITS | Encounter Summary ---
:1945 Author Organization [facility] [place] [address] Care Team Providers Name Role Phone Lovely Vicente MD Primary Care Provider Encounter Details Date Type Department Care Team Description 11/29/2017 Hospital Encounter Vascular Lab at [facility] (peripheral [facility], RVT artery [facility]) [place] [phone] Social History Tobacco Use Types Packs/Day Years [...] Dolan MD [facility] [address] [place], [place] [address] (Wo rk) 05/28/2022 Laboratory Appointment Lab 05/28/2022 Office Visit Cardiology Zulma Dolan MD [facility] [place] [address] Liz Poole PA [facility] [place] [address] 06/10/2022 Office Visit Dermatology Laura Scherer MD [facility] [address] [place], [place] [address] (Wo rk) documented [...] Component Value Ref Test Analysis Performed At [facility] Range Method Time Signature VB Text Department: Vascular Surgery Lab VASCUBASE Report Patient: [id number] (DON HOANG) CPT: 18902 ICD10: I72.4;I73.9 Referring Physician: DANETTE MAXWELL ?? [...] unspecified documented in this encounter Care Teams Brass Finisher Relationship Specialty Start Date End Date Lovely Vicente MD PCP - General 04/16/[address] [place], [place] [address]Y [facility] [address] [place] [address] documented as of this encounter
--- OUTSIDE RECORDS SUMMARY | 2022-05-11 08:43 | XMS_ITS | Encounter Summary ---
:1945 Author Organization [facility] [place] [address] Care Team Providers Name Role Phone Lovely Vicente MD Primary Care Provider Reason for Referral Diagnostic Test (Routine) - Closed Specialty Diagnoses / Procedures Referred By Contact Refer red To Contact Cardiology Diagnoses Ischemic cardiomyopathy Acute on chronic systolic congestive heart failure Danette Maxwell APRN [facility] Non-Inv Card Lab Procedures Echocardiogram Transthoracic(Leb) [place] [address] [place] [address] Referral ID Status Reason Start Date Expiration Date Visits V isits Requested Authorized [id number] Closed Specialty 08/30/2017 08/30/2018 1 1 Service Requested Reason for Visit Diagnostic Test (Routine) - Closed Specialty Diagnoses / Procedures Referred By Contact Refer red To Contact Cardiology Diagnoses Ischemic cardiomyopathy Acute on chronic systolic congestive heart failure Danette Maxwell APRN [facility] Non-Inv Card Lab Procedures Echocardiogram Transthoracic(Leb) [place] [address] [place] [address] Referral ID Status Reason Start Date Expiration Date Visits V isits Requested Authorized [id number] Closed Specialty 08/30/2017 08/30/2018 1 1 Service Requested Encounter Details Date Type Department Care Team Description 10/07/2017 Hospital Encounter Non-Invasive Ischemic cardiomyopathy; Cardiology Lab Barbara Craig on chronic systolic [place] [address] Social History Tobacco Use Types Packs/Day [...] 05/28/2022 Appointment Cardiology Zulma Dolan MD [facility] [address] [place], [place] [address] (Wo rk) 05/28/2022 Laboratory Appointment Lab 05/28/2022 Office Visit Cardiology Zulma Dolan MD [facility] [place] [address] Liz Poole PA [facility] [place] [address] 06/10/2022 Office Visit Dermatology Laura Scherer MD [facility] [address] [place], [place] [address] (Wo rk) documented as [...] Mccollum ? (Age): 1945(72y) Med Rec#: ? [id number] ?Sex: ?M ? Site Loc: ? [facility] ?Ht / Wt: ??173(cm)/82(kg) Pt. Loc: ?Echo Lab ?BSA: ?1.96 Study Date: ?? 10/07/2017 ?Pt. Type: Outpatient Tape: ? Referring: Danette Maxwell Reading: Iker Cuevas ([id number]) Engineering Inspection Assistant: Yonathan Bocanegra Diagnosis: *ICD-10-PCS Ischemic cardiomyopathy (I2 [...] E-wave Vmax ?1.2 ?m/sec ? MV deceleration [id number] ?msec ? MV A-wave Vmax ?1 ?m/sec [...] ? Mid-Inferior ?Hypokinetic ? Mid-Inferoseptal ?Hypokinetic ? [place]-Septal ? Akinetic ? [place]-Anterior ? Hypokinetic ? [place]-Lateral ?Hypokinetic ? [place]-Inferior ? Hypokinetic ? [place]-Tip ?Akinetic ? This report has been electronically sign ed by: _ Iker Cuevas M.D. ? 10/07/2017 11:12:34 Images reviewed and interpretation verif ied [facility] Cardiac Ultrasound Laboratory Procedure Note Iker Cuevas MD - 10/07/2017Formatti ng of this note might be different from the original. Procedure: Transthoracic Echocardiogram Patient: NATALYA MCBRIDE(Age): [birth year]72y) Med Rec#: [id number] Sex: M Site Loc: [facility] Ht / Wt: 173(cm)/82(kg) Pt. Loc: Echo Lab BSA: 1.96 Study Date: 10/07/2017 Pt. Type: Outpati ent Tape: Referring: Danette Maxwell Reading: Iker Cuevas ([id number]) Engineering Inspection Assistant: Yonathan Bocanegra Diagnosis: *ICD-10-PCS Ischemic cardiomyopathy (I2 [...] MV E-wave Vmax 1.2 m/sec MV deceleration sehb825 msec MV A-wave Vmax 1 m/sec MV [...] Akinetic Mid-Posterolateral Hypokinetic Mid-Inferior Hypokinetic Mid-Inferoseptal Hypokinetic [place]-Septal Akinetic [place]-Anterior Hypokinetic [place]-Lateral Hypokinetic [place]-Inferior Hypokinetic [place]-Tip Akinetic This report has been electronically sign ed by: _ Iker Cuevas M.D. 10/07/2017 11:12 :34 Images reviewed and interpretation elvie hwang [facility] Cardiac Ultrasound Laboratory Danette Maxwell [...] Routine documented in this encounter Care Teams Flavorer Relationship Specialty Start Date End Date Lovely Vicente MD PCP - General 04/16/[address] [place] [address] documented as of this encounter
--- OUTSIDE RECORDS SUMMARY | 2022-05-11 08:43 | XMS_ITS | Encounter Summary ---
:1945 Author Organization [facility] Address [address] [address] Care Team Providers Name Role Phone Lovely iVcente MD Primary Care Provider Encounter Details Date Type Department Care Team Description 10/07/2017 Office Visit Cardiology at [facility] Danette Maxwell Chronic systolic heart failu re; [facility] A, COKE INSPECTOR S/P CABG x 3; Drive [facility] On amiodarone therapy; [place], [place] Atrial fibrillation, unspecified type; [phone] CARDIOLOGY ASCVD (arteriosclerotic cardiovascular d isease) [phone] [place], [place] [address] Social History Tobacco Use Types [...] - documented in this encounter Progress Notes [place] Danette A, COKE INSPECTOR - 10/07/2017 11:20 AM EDT ID and [...] 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 [...] by Dr. Espino On IV antibiotics at [facility] Today: Mr. Fatima is accompanied [...] continue to see Dr. Bains well at [facility] and follow his wound on his right lower extremity. And she will continue to direct antibiotic treatment. Ihave asked that the echocardiogram results be faxed to Dr. Zurita at [facility]. 1. ASCVD Continue ASA, BB and [...] and bone removal by Dr. Aguero at [facility]. Currently receiving IV antibiotics at [facility] ? Plan: 1. A review [...] Dolan MD [facility] [address] [place], [place] [address] (Wo rk) 05/28/2022 Laboratory Appointment Lab 05/28/2022 Office Visit Cardiology Zulma Dolan [place] [id number] Liz Poole PA [facility] [place] [address] 06/10/2022 Office Visit Dermatology Laura Scherer MD [facility] [address] [place], [place] [address] (Wo rk) documented as of this encounter Results (ABNORMAL) Basic Metabolic Panel (non-fasting) (10/07/2017 8:48 AM EDT) athologist Signature Glucose Lvl 99 65 - 199 [facility] mg/dL [facility] Comment: Diabetes: >=200 mg/dL plus symp toms BUN 27 (H) 10 - 20 mg/dL [facility] Creatinine 1.07 0.80 - 1.50 mg/dL [facility] [...] [facility] Estimated GFR >60 >=60 [facility] Comment: The reported eGFR should be multiplied b y 1.2 for patients. The MDRD is not an appropriate measure o f renal function for patients with body mass extremes or in patients with acute kidney failure. http://[employer]/DHnkdep http://Tablo/DHMCnkf Specimen Anatomical Collection Method Collection Time Receive d Time (Source) Location / / Volume Laterality Blood specimen 10/07/2017 8:48 AM 018 8:50 (specimen) EDT AM EDT Resulting Agency Comment Spec In Lab Danette Maxwell APRN CHEMISTRY ORDERABLES Performing Organization Address City/State/[place] [address] (ABNORMAL) pro-Brain Natriuretic Peptide (10/07/2017 8:48 AM EDT) P athologist Signature ProBNP 1,170 (H) <=125 [facility] pg/mL [facility] Specimen Anatomical Collection Method Collection Time Receive d Time (Source) Location / / Volume Laterality Blood specimen 10/07/2017 8:48 AM 018 8:50 (specimen) EDT AM EDT Resulting Agency Comment Spec In Lab Danette Maxwell APRN CHEMISTRY ORDERABLES Performing Organization Address City/State/[place] [address] documented in this encounter Visit Diagnoses Diagnosis Chronic systolic heart failure S/P CABG x 3 Postsurgical aortocoronary bypass status On amiodarone therapy Atrial fibrillation, unspecified type ASCVD (arteriosclerotic cardiovascular d isease) Unspecified cardiovascular disease documented in this encounter Care Teams Box Toe Stitcher Relationship Specialty Start Date End Date Lovely Vicente MD PCP - General 04/16/[address] [place] [address] documented as of this encounter
--- OUTSIDE RECORDS SUMMARY | 2022-05-11 08:43 | XMS_ITS | Encounter Summary ---
:1945 Author Organization [place] [address] Care Team Providers Name Role Phone Lovely Vicente MD Primary Care Provider Reason for Referral Consultation (Routine) - Specialty Diagnoses / Procedures Referred By Contact Refer red To Contact [facility] Diagnoses Atheroembolism of foot, right Delayed surgical wound healing, subsequent encounter Aurelia Rivera PA [address] [facility] [place] [address] Referral ID Status Reason Start Date Expiration Date Visits V isits Requested Authorized [id number] Consult, 09/08/2017 03/07/2018 1 1 Test & Treat Reason for Visit Reason Comments Wound Check My foot hurts Encounter Details Date Type Department Care Team Description 09/07/2017 Office Visit Vascular Surgery at MiguelAurelia PA Atheroembolism of foot, right; [facility] [address] [facility] Delayed surgical wound healing, subseque nt encounter [facility] [place] [address] [phone] Social History Tobacco Use Types Packs/Day Years [...] at home for VAC dressing changes from [facility]. Since his last visit his right forefoot wound VAC care has improved and [facility] have maintained a better seal with [...] [facility] MAIN OR ??? PRO AMPUTATION FOOT, TRANSMETATARSAL Right 08/09/2017 AMPUTATION, TRANSMETATARSAL (WRVU 12.71) performed by Yonathan Smith MD at [facility] MAIN OR [...] at [facility] ENDOSCOPY ??? PRO DRESSING CHANGE UNDER ANESTHESIA Right 08/11/2017 (MSURG) DRESSING CHANGE (FOR OTHER THAN IVAN) UNDER ANES. (WRVU 0.86) performed by Lamar Smith MD at [facility] MAIN OR ??? PRO ENDOSCOPY W/VIDEO-ASST VEIN HARVEST, CABG Right 07/07/2017 ENDOSCOPIC HARVEST VEIN(S) FOR CABG (WRVU 0.31) performed by Yuna Retana MD at [facility] MAIN [...] Cardiology Zulma Dolan MD [facility] [place], [place] [address] (Wo rk) 05/28/2022 Laboratory Appointment Lab 05/28/2022 Office Visit Cardiology Zulma Dolan MD [facility] [place] [address] Liz Poole PA [facility] [place] [address] 06/10/2022 Office Visit Dermatology Laura Scherer MD [facility] [address] [place], [place] [address] (Wo rk) Scheduled Referrals Name Type Priority Associated Diagnoses Order S chedule Referral to Wound Outpatient Referral Routine Atheroembolism o f foot, Ordered: Clinic right 09/08/2017 Delayed surgical wound healing, subsequent encounter documented as of this encounter Visit Diagnoses Diagnosis Atheroembolism of foot, right Delayed surgical wound healing, subseque nt encounter documented in this encounter Care Teams Chaser Tar Relationship Specialty Start Date End Date Lovely Vicente MD PCP - General 04/16/[address] [facility] [place] [address] documented as of this encounter
--- OUTSIDE RECORDS SUMMARY | 2022-05-11 08:43 | XMS_ITS | Encounter Summary ---
:1945 Author Organization [facility] [place] [address] Care Team Providers Name Role Phone Lovely Vicente MD Primary Care Provider Reason for Visit Reason Comments Skin Check Encounter Details Date Type Department Care Team Description 07/06/2018 Office Visit Dermatology at [facility], Rigoberto Yarbrough (actinic keratosis); MD SHAY Quick III (seborrheic keratosis); [address] [facility] History of melanoma; [place] [address] Skin exam for malignant neoplasm [phone] [facility] [place], [place] [address] Social History Tobacco Use Types [...] leg - he had vascular surgery in [facility] while he lost several toes, they [...] [facility] Dr [place], [place] [address] (Wo rk) 05/28/2022 Laboratory Appointment Lab 05/28/2022 Office Visit Cardiology Zulma Dolan MD [facility] [place] [address] Liz Poole PA [facility] [place] [address] 06/10/2022 Office Visit Dermatology Laura Scherer MD [facility] [address] [place], [place] [address] (Wo rk) documented as of this encounter Visit Diagnoses Diagnosis AK (actinic keratosis) Actinic keratosis SK (seborrheic keratosis) Other seborrheic keratosis History of melanoma Personal history of malignant melanoma o f skin Skin exam for malignant neoplasm Screening for malignant neoplasm of the skin documented in this encounter Care Teams Strap Machine Operator Relationship Specialty Start Date End Date Lovely Vicente MD PCP - General 04/16/[address] [place] [address] documented as of this encounter
--- OUTSIDE RECORDS SUMMARY | 2022-05-11 08:43 | XMS_ITS | Encounter Summary ---
:1945 Author Organization [facility] [place] [address] Care Team Providers Name Role Phone Lovely Vicente MD Primary Care Provider Encounter Details Date Type Department Care Team Description 09/06/2017 Telephone Vascular Surgery at [facility] Ninfa Clark, [place] [address] Social History Tobacco Use Types Packs/Day [...] Zulma Dolan MD [facility] [place], [place] [address] (Wo rk) 05/28/2022 Laboratory Appointment Lab 05/28/2022 Office Visit Cardiology Zulma Dolan MD [facility] [place] [address] Liz Poole PA [facility] [place] [address] 06/10/2022 Office Visit Dermatology Laura Scherer MD [facility] DR [address] [place], [place] [address] (Wo rk) documented as of this encounter Visit Diagnoses Not on filedocumented in this encounter Care Teams Paint Dipper Relationship Specialty Start Date End Date Lovely Vicente MD PCP - General 04/16/[address] [place] [address] documented as of this encounter
--- OUTSIDE RECORDS SUMMARY | 2022-05-11 08:43 | XMS_ITS | Encounter Summary ---
:1945 Author Organization [facility] [place] [address] Care Team Providers Name Role Phone Lovely Vicente MD Primary Care Provider Encounter Details Date Type Department Care Team Description 08/26/2017 Hospital Encounter Vascular Lab at [facility], Athero embolism of foot, right; [place], [place] Delayed surgi nusrat wound healing, [place] [address] Social History Tobacco Use Types Packs/Day Years [...] Zulma Dolan MD [facility] [address] [place], [place] [address] (Wo rk) 05/28/2022 Laboratory Appointment Lab 05/28/2022 Office Visit Cardiology Zulma Dolan MD [facility] [place] [address] Liz Poole PA [facility] [place] [address] 06/10/2022 Office Visit Dermatology Laura Scherer MD [facility] [address]LOG[address] [place], [place] [address] (Wo rk) documented as [...] [facility] Range Method Time Signature VB Text Department: Vascular Surgery Lab VASCUBASE Report Patient: [id number] (DON HOANG) CPT: 93323 ICD10: T81.89XA;I75.021 Referring Physician: ELVER BLOOM ?? [...] encounter documented in this encounter Care Teams Fashion Illustrator Relationship Specialty Start Date End Date Lovely Vicente MD PCP - General 04/16/[address] [place] [address] documented as of this encounter
--- OUTSIDE RECORDS SUMMARY | 2022-05-11 08:43 | XMS_ITS | Encounter Summary ---
:1945 Author Organization [facility] [place] [address] Care Team Providers Name Role Phone Lovely Vicente MD Primary Care Provider Encounter Details Date Type Department Care Team Description 08/30/2017 [facility] ischemia [facility] [address] [place], [place] VASCULAR SURGERY [address] [place] [address] [phone] Social History Tobacco Use Types Packs/Day Years [...] MD - 08/30/2017 2:00 PM EST [facility] staff: Patient returns. He is doing [...] Dolan MD [facility] [address] [place], [place] [address] (Wo rk) 05/28/2022 Laboratory Appointment Lab 05/28/2022 Office Visit Cardiology Zulma Dolan MD [facility] [place] [id number] Liz Poole PA [facility] [place] [address] 06/10/2022 Office Visit Dermatology Laura Scherer MD [facility] [address] [place], [place] [address] (Wo rk) documented as of this encounter Visit Diagnoses Diagnosis Critical lower limb ischemia Unspecified circulatory system disorder documented in this encounter Care Teams Relief Map Modeler Relationship Specialty Start Date End Date Lovely Vicente MD PCP - General 04/16/[address] [place] [address] documented as of this encounter
--- OUTSIDE RECORDS SUMMARY | 2022-05-11 08:43 | XMS_ITS | Encounter Summary ---
:1945 Author Organization [facility] [place] [address] Care Team Providers Name Role Phone Lovely Vicente MD Primary Care Provider Encounter Details Date Type Department Care Team Description 11/29/2017 Laboratory Lab 3L Barbara Chronic systoli c congestive heart failure; Appointment [facility] ASCVD (ar teriosclerotic cardiovascular disease); Hospital [place]omy[place], [place] [address] Social History Tobacco Use [...] MD [facility] [place] [address] (Wo rk) 05/28/2022 Laboratory Appointment Lab 05/28/2022 Office Visit Cardiology Zulma Dolan MD [facility] [place] [address] Liz Poole PA [facility] [place] [address] 06/10/2022 Office Visit Dermatology Laura Scherer MD [facility] ER [address] [place], [place] [address] (Wo rk) documented as of [...] - 12.5 [facility] LABORATORY INR 2.1 [facility] [...] Organization Address City/State/[place] [address] (ABNORMAL) Basic Metabolic Panel (non-fasting) (11/29/2017 8:22 AM EDT) P athologist Signature Glucose Lvl 217 (H) 65 - 199 [facility] mg/dL [facility] LABORATORY Comment: [...] [facility] Estimated GFR >60 >=60 [facility] LABORATORY Comment: The reported eGFR should be multiplied b y 1.2 for patients. The MDRD is not an appropriate measure o f renal function for patients with body mass extremes or in patients with acute kidney failure. http://StratusLIVE.[employer]/DHnkdep http://myJambi/DHMCnkf Specimen Anatomical Collection Method Collection Time Receive d Time (Source) Location / / Volume Laterality Blood specimen 11/29/2017 8:22 AM 018 8:29 (specimen) EDT AM EDT Resulting Agency Comment Spec In Lab Danette Maxwell APRN CHEMISTRY ORDERABLES Performing Organization Address City/State/[place] [address] (ABNORMAL) pro-Brain Natriuretic Peptide (11/29/2017 8:22 AM EDT) P athologist Signature ProBNP 1,769 (H) <=125 [facility] pg/mL [facility] LABORATORY Specimen Anatomical Collection Method Collection Time Receive d Time (Source) Location / / Volume Laterality Blood specimen 11/29/2017 8:22 AM 018 8:29 (specimen) EDT AM EDT Resulting Agency Comment Spec In Lab Danette Maxwell APRN CHEMISTRY ORDERABLES Performing Organization Address City/State/ZIP Code Phon e Number [address] Lavender Tube HOLD (11/29/2017 8:14 AM EDT) Patholo gist Method Time Signature Lavender Hold Sample in [facility] lab. [facility] LABORATORY Specimen Anatomical Collection Method Collection Time Receive d Time (Source) Location / / Volume Laterality Blood specimen No Charge / 11/29/2017 8:14 AM 018 8:29 (specimen) Unknown EDT AM EDT Lovely Vicente MD HEMATOLOGY ORDERABLES Performing Organization Address City/State/[place] [address] documented in this encounter Visit Diagnoses Diagnosis Chronic systolic congestive heart failur e Chronic systolic heart failure ASCVD (arteriosclerotic cardiovascular d isease) Unspecified cardiovascular disease Cardiomyopathy, ischemic Other specified forms of chronic ischemi c heart disease documented in this encounter Care Teams Licensed And Certified Midwife Relationship Specialty Start Date End Date Lovely Vicente MD PCP - General 04/16/[address] [place] [address] documented as of this encounter
--- OUTSIDE RECORDS SUMMARY | 2022-05-11 08:43 | XMS_ITS | Encounter Summary ---
:1945 Author Organization [facility] [place] [address] Care Team Providers Name Role Phone Lovely Vicente MD Primary Care Provider Encounter Details Date Type Department Care Team Description 11/29/2017 Office Visit Cardiology at [facility] Annette Maxwell Chronic systolic congestive heart failure; [facility] A, [employer]RO[employer] BRAKEM[employer] ASCVD (arteriosclerotic cardiovascular d isease); [facility] Cardiomyopathy, ischemic; [place], [place] PAD (peripheral artery disease) [phone] CARDIOLOGY [phone] [place], [place] [address] Social History Tobacco Use Types [...] in this encounter Progress Notes Annette Maxwell, RAILROAD BRAKEMAN - 11/29/2017 9:20 AM EDT ID and [...] 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 [...] using left greater saphenous vein (done at [facility]), debridement of right foot with wound vac [...] Zulma Dolan MD [facility] [place], [place] [address] (Wo rk) 05/28/2022 Laboratory Appointment Lab 05/28/2022 Office Visit Cardiology Zulma Dolan MD [facility] [place] [address] Liz Poole PA [facility] [place] [address] 06/10/2022 Office Visit Dermatology Laura Scherer MD [facility] DR [address] [place], [place] [address] (Wo rk) documented as of this encounter Results Arterial Duplex Leg, Unil (11/29/2017 10:32 AM EDT) Component Value Ref Test Analysis Performed At [facility] Range Method Time Signature VB Text Department: Vascular Surgery Lab VASCUBASE Report Patient: [id number] (GREGORY HOANG) CPT: 79296 ICD10: I72.4;I73.9 Referring Physician: ANNETTE MAXWELL ?? [...] Glucose Lvl 217 (H) 65 - 199 [facility] mg/dL [facility] [...] [facility] LABORATORY Estimated GFR >60 >=60 [facility] LABORATORY Comment: The reported eGFR should be multiplied b y 1.2 for patients. The MDRD is not an appropriate measure o f renal function for patients with body mass extremes or in patients with acute kidney failure. http://tzonebd.com.[employer]/DHnkdep http://[employer]/DHMCnkf Specimen Anatomical Collection Method Collection Time Receive d Time (Source) Location / / Volume Laterality Blood specimen 11/29/2017 8:22 AM 05/07/2 018 8:29 (specimen) EDT AM EDT Resulting Agency Comment Spec In Lab Annette Maxwell [employer] CHEMISTRY ORDERABLES Performing Organization Address City/State/[place] [address] (ABNORMAL) pro-Brain Natriuretic Peptide (11/29/2017 8:22 AM EDT) P athologist Signature ProBNP 1,769 (H) <=125 [facility] pg/mL [facility] Specimen Anatomical Collection Method Collection Time Receive d Time (Source) Location / / Volume Laterality Blood specimen 11/29/2017 8:22 AM 018 8:29 (specimen) EDT AM EDT Resulting Agency Comment Spec In Lab Annette Maxwell [employer] CHEMISTRY ORDERABLES Performing Organization Address City/[facility]/[place] [address] documented in this encounter Visit Diagnoses Diagnosis Chronic systolic congestive heart failur e Chronic systolic heart failure ASCVD (arteriosclerotic cardiovascular d isease) Unspecified cardiovascular disease Cardiomyopathy, ischemic Other specified forms of chronic ischemi c heart disease PAD (peripheral artery disease) Peripheral vascular disease, unspecified documented in this encounter Care Teams Emergency Medicine Medical Director Relationship Specialty Start Date End Date Lovely Vicente MD PCP - General 04/16/[address] [place] [address] documented as of this encounter
--- OUTSIDE RECORDS SUMMARY | 2022-05-11 08:43 | XMS_ITS | Encounter Summary ---
:1945 Author Organization [facility] [place] [address] Care Team Providers Name Role Phone Lovely Vicente MD Primary Care Provider Reason for Visit Reason Comments Follow-up Skin Check Encounter Details Date Type Department Care Team Description 01/06/2018 Office Visit Dermatology at [facility]; Abdelrahman HOOPER MD History of melanoma; [address] [facility] [place] [address] [facility] [place], [place] [address] Social History Tobacco Use Types [...] encounter. Rigoberto Garcia MD Section of Dermatology [facility] documented in this encounter Plan of Treatment Upcoming Encounters Date Type Specialty Care Team Description 05/28/2022 Appointment Cardiology Zulma Dolan MD [facility] [address] [place], [place] [address] (Wo rk) 05/28/2022 Laboratory Appointment Lab 05/28/2022 Office Visit Cardiology Zulma Dolan MD [facility] [place] [address] Liz Poole PA [facility] [place] [address] 06/10/2022 Office Visit Dermatology Laura Scherer MD [facility] [address] [place], [place] [address] (Wo rk) documented as of this encounter Visit Diagnoses Diagnosis Multiple nevi Benign neoplasm of skin, site unspecifie d History of melanoma Personal history of malignant melanoma o f skin Seborrheic keratosis Other seborrheic keratosis documented in this encounter Care Teams Mrp Controller Relationship Specialty Start Date End Date Lovely Vicente MD PCP - General 04/16/[address] [place] [address] documented as of this encounter
--- OUTSIDE RECORDS SUMMARY | 2022-05-11 08:43 | XMS_ITS | Encounter Summary ---
:1945 [place] [address] Care Team Providers Name Role Phone Lovely Vicente MD Primary Care Provider Encounter Details Date Type Department Care Team Description 11/29/2017 Hospital Encounter Radiology Library at Estefany Maxwell Pain [facility] SAL[employer] ARCH[employer]ECT [facility] [place] [address] CARDIOLOGY [phone] [place], [place] [address] (Wo rk) Social History Tobacco [...] Zulma Dolan MD [facility] [place], [place] [address] (Wo rk) 05/28/2022 Laboratory Appointment Lab 05/28/2022 Office Visit Cardiology Zulma Dolan MD [facility] [address] Liz Poole PA [facility] [place] [address] 06/10/2022 Office Visit Dermatology Laura Scherer MD [facility] DR [address] [place], [place] [address] (Wo rk) documented as [...] City/State/ZIP Code Phon e Number [place], [place] documented in this encounter Visit Diagnoses Diagnosis Pain Generalized pain documented in this encounter Care Teams Food Production Worker Relationship Specialty Start Date End Date Lovely Vicente MD PCP - General 04/16/[address] [place] [address] documented as of this encounter
--- OUTSIDE RECORDS SUMMARY | 2022-05-11 08:43 | XMS_ITS | Encounter Summary ---
:1945 Author Organization [facility] Address [facility] [place] [address] Care Team Providers Name Role Phone Lovely Vicente MD Primary Care Provider Reason for Referral Diagnostic Test (Routine) - Specialty Diagnoses / Procedures Referred By Contact Refer red To Contact Cardiology Diagnoses Chronic systolic heart failure Danette Maxwell APRN [facility] Non-Inv Card Lab Procedures Echocardiogram Transthoracic(Leb) [facility] [place] [address] [place] [address] Referral ID Status Reason Start Date Expiration Visits Visits Date Requested Authorized [id number] Specialty 08/15/2018 08/15/2018 1 1 Service Requested Encounter Details Date Type Department Care Team Description 04/18/2018 Office Visit Cardiology at [facility] Danette Maxwell Chronic systolic heart failu re; [facility] STACIE Gomes On amiodarone therapy; [facility] Ischemic cardiomyopathy; [place], [place] DR ONOFRE (arteriosclerotic cardiovascular d isease) [phone] CARDIOLOGY [phone] [place], [place] [address] Social History Tobacco Use Types Packs/Day Years [...] in this encounter Progress Notes Danette Maxwell, NIB ADJUSTER - 04/18/2018 10:40 AM EDT ID and [...] Dolan MD [facility] [address], [place] [address] (Wo rk) 05/28/2022 Laboratory Appointment Lab 05/28/2022 Office Visit Cardiology Zulma Dolan MD [place] [address] Liz Poole PA [facility] [place] [address] 06/10/2022 Office Visit Dermatology Laura Scherer MD [facility] [address] [place], [place] [address] (Wo rk) documented as of this encounter Results ECHOCARDIOGRAM COMPLETE W CONTRAST (08/15/2018 7:55 AM EST) P athologist Signature EF 35 [facility] Anatomical Region Laterality Modality Other Specimen (Source) Anatomical Location Collection Method / Collectio n Time Received Time / Laterality Volume 08/15/2018 Narrative 08/15/2018 8:18 AM EST Procedure: ?Transthoracic Echocardiogram Patient: ?NATALYA Mccollum ? (Age): 1945(73y) Med Rec#: ? [id number] ?Sex: ?M ? Site Loc: ? [facility] ?Ht / Wt: ??172(cm)/81(kg) Pt. Loc: ?Echo Lab ?BSA: ?1.94 Study Date: ?? 08/15/2018 ?Pt. Type: Outpatient Tape: ? Referring: MARY ELLEN Reading: Scott Ortega ([id number]) Nurses Medical Assistants Phlebotomists: Laura Sargent Diagnosis: *Chronic systolic (congestive) heart [...] E-wave Vmax ?1.2 ?m/sec ? MV deceleration nnzp614.4 ? msec ? MV A-wave Vmax ?0.7 [...] ? Mid-Inferior ?Hypokinetic ? Mid-Inferoseptal ?Hypokinetic ? [place]innell-Septal ? Akinetic ? [place]-Anterior ? Hypokinetic ? [place]-Lateral ?Akinetic ? [place]-Inferior ? Hypokinetic ? [place]-Tip ?Akinetic ? This report has been electronically sign ed by: _ Scott Ortega M.D. ? 08/15/2018 08:17:26 Images reviewed and interpretation verif ied [facility] Cardiac Ultrasound Laboratory Procedure Note Scott Ortega MD - 08/15/2018Format ting of this note might be different from the original. Procedure: Transthoracic Echocardiogram Patient: NATALYA MCBRIDE(Age): [birth year]73y) Med Rec#: [id number] Sex: M Site Loc: [facility] Ht / Wt: 172(cm)/81(kg) Pt. Loc: Echo Lab BSA: 1.94 Study Date: 08/15/2018 Pt. Type: Outpati ent Tape: Referring: MARY ELLEN Reading: Scott Ortega ([id number]) Nurses Medical Assistants Phlebotomists: Laura Sargent Diagnosis: *Chronic systolic (congestive) heart [...] MV E-wave Vmax 1.2 m/sec MV deceleration covh652.4 msec MV A-wave Vmax 0.7 m/sec MV [...] Akinetic Mid-Posterolateral Akinetic Mid-Inferior Hypokinetic Mid-Inferoseptal Hypokinetic [place]innell-Septal Akinetic [place]-Anterior Hypokinetic [place]-Lateral Akinetic [place]-Inferior Hypokinetic [place]-Tip Akinetic This report has been electronically sign ed by: _ Scott Ortega M.D. 08/15/2018 08:17: 26 Images reviewed and interpretation verif ied [facility] Cardiac Ultrasound Laboratory Danette Maxwell APRN ECHO ORDERABLES (ABNORMAL) Basic Metabolic Panel (non-fasting) (04/18/2018 9:19 AM EDT) P athologist Signature Glucose Lvl 167 65 - 199 [facility] mg/dL [facility]ORATORY Comment: Diabetes: [...] of body mass or the acutely ill. http://PayByGroup/[facility] CITYnkf eGFR 70 >=60 mL/min/1.73 m?? [facility] LABORATORY Comment: The eGFR was calculated using the CKD-EP I equation. As with all creatinine based estimates of kidney function, eGFR values calculated with the CKD-EPI equation are not accurate in patients wi th acute kidney failure, extremes of body mass or the acutely ill. http://PayByGroup/[facility] CITYnkf Specimen Anatomical Collection Method Collection Time Receive d Time (Source) Location / / Volume Laterality Blood specimen 04/18/2018 9:19 AM 018 9:34 (specimen) EDT AM EDT Resulting Agency Comment Spec In Lab Danette Maxwell APRN CHEMISTRY ORDERABLES Performing Organization Address City/State/[place] [address] (ABNORMAL) pro-Brain Natriuretic Peptide (04/18/2018 9:19 AM EDT) P athologist Signature ProBNP 2,199 (H) <=125 [facility] pg/mL [facility] Specimen Anatomical Collection Method Collection Time Receive d Time (Source) Location / / Volume Laterality Blood specimen 04/18/2018 9:19 AM 018 9:34 (specimen) EDT AM EDT Resulting Agency Comment Spec In Lab Danette Maxwell APRN CHEMISTRY ORDERABLES Performing Organization Address City/State/[place] [address] documented in this encounter Visit Diagnoses Diagnosis Chronic systolic heart failure On amiodarone therapy Ischemic cardiomyopathy Other specified forms of chronic ischemi c heart disease ASCVD (arteriosclerotic cardiovascular d isease) Unspecified cardiovascular disease Chronic systolic heart failure documented in this encounter Care Teams Director Internal Audit Relationship Specialty Start Date End Date Lovely Vicente MD PCP - General 04/16/[address] [place] [address] documented as of this encounter
--- OUTSIDE RECORDS SUMMARY | 2022-05-11 08:43 | XMS_ITS | Encounter Summary ---
:1945 Author Organization [facility] [place] [address] Care Team Providers Name Role Phone Lovely Vicente MD Primary Care Provider Encounter Details Date Type Department Care Team Description 09/07/2017 Laboratory Appointment Lab 3L [facility] [place] [id number] Social History Tobacco Use Types Packs/Day Years [...] MD [facility] er [place], [place] [address] (Wo rk) 05/28/2022 Laboratory Appointment Lab 05/28/2022 Office Visit Cardiology Zulma Dolan MD [facility] [place] [address] Liz Poole PA [facility] [place] [address] 06/10/2022 Office Visit Dermatology Laura Scherer MD [facility] ER [address] [place], [place] [address] (Wo rk) documented as of this encounter [...] PM EST) athologist Signature Thyroglobulin 1.4 <=54.9 [facility] ng/mL [facility] Comment: Thyroglobulin [...] Organization Address City/State/[place] [address] TSH (09/07/2017 2:41 PM EST) athologist Signature TSH 3.93 0.27 - 4.20 [facility]ML [facility] LABORAT[facility] Specimen Anatomical Collection Method Collection Time Receive d Time (Source) Location / / Volume Laterality Blood specimen 09/07/2017 2:41 PM 018 2:46 (specimen) EST PM EST Resulting Agency Comment Spec In Lab Luz Prescott MD CHEMISTRY ORDERABLES Performing Organization Address City/State/[place] [address] documented in this encounter Visit Diagnoses Diagnosis Hx of papillary thyroid carcinoma Personal history of malignant neoplasm o f thyroid documented in this encounter Care Teams Optometry Doctor Relationship Specialty Start Date End Date Lovely Vicente MD PCP - General 04/16/[address] [place] [address] documented as of this encounter
--- OUTSIDE RECORDS SUMMARY | 2022-05-11 08:43 | XMS_ITS | Encounter Summary ---
:1945 [place] [address] Care Team Providers Name Role Phone Lovely Vicente MD Primary Care Provider Encounter Details Date Type Department Care Team Description 08/15/2018 Laboratory Appointment Lab 3L [facility] [place] [address] Social History Tobacco Use Types Packs/Day [...] MD [facility] er [place], [place] [address] (Wo rk) 05/28/2022 Laboratory Appointment Lab 05/28/2022 Office Visit Cardiology Zulma Dolan MD [facility] [place] [address] Liz Poole PA [facility] [place] [address] 06/10/2022 Office Visit Dermatology Laura Scherer MD [facility] ER DR [address] [place], [place] [address] (Wo rk) documented as of this encounter Procedures Procedure Name Priority Date/Time Associated Diagnosis Comme nts PROTHROMBIN TIME Routine 08/15/2018 8:04 AM Resul ts for this EST procedure are i n the results section. documented in this encounter Results (ABNORMAL) Prothrombin Time (08/15/2018 8:04 AM EST) P athologist Signature PT 24.0 (H) 9.4 - 12.5 [facility] LABORATORY INR 2.1 [facility] [...] Address City/State/[place] [address] documented in this encounter Visit Diagnoses Not on filedocumented in this encounter Care Teams Research And Development Technician Relationship Specialty Start Date End Date Lovely Vicente MD PCP - General 04/16/[address] [place] [address] documented as of this encounter
--- OUTSIDE RECORDS SUMMARY | 2022-05-11 08:43 | XMS_ITS | Encounter Summary ---
:1945 Author Organization [facility] [address] Care Team Providers Name Role Phone Lovely Vicente MD Primary Care Provider Reason for Visit Reason Comments Follow-up I'm having trouble with the VAC Encounter Details Date Type Department Care Team Description 08/26/2017 Office Visit Vascular Surgery at [facility], STEPHANIE Mercado Atheroembolism of foot, right; [facility] [address] Delayed surgical wound healing, initial encounter; [facility] VASCULAR SURG YEHUDA Acute on chronic systolic congestive hea rt failure ; [place], [place] [id number] [phone] Social History Tobacco Use Types Packs/Day Years [...] and into the care of the [facility]. However, since discharge from [facility] he has had some difficulty with continuation [...] [facility] MAIN OR ??? PRO AMPUTATION FOOT, TRANSMETATARSAL Right 08/09/2017 AMPUTATION, TRANSMETATARSAL (WRVU 12.71) performed by Yonathan Smith MD at [facility] MAIN OR ??? PRO CABG, ARTERIAL, SINGLE N/A 07/07/2017 @CABG, USING ARTERIAL GRAFT;SINGLE ARTERIAL GRAFT (WRVU 33.75) performed by Yuan Retana MD at [facility] MAIN OR ??? PRO CABG, ARTERY-VEIN, TWO N/A 07/07/2017 @CABG, TWO VENOUS GRAFTS & ARTERIAL GRAFT (WRVU 7.93) performed by Yuan Retana MD at [facility] MAIN OR ??? PRO COLONOSCOPY, REMV LESN, SNARE 01/16/2014 COLONOSCOPY, POLYPECTOMY, REMOVAL LESION BY SNARE performed by Nohemi Jaimes MD at [facility] ENDOSCOPY ??? PRO DRESSING CHANGE UNDER ANESTHESIA Right 08/11/2017 (MSURG) DRESSING CHANGE (FOR OTHER THAN IVAN) UNDER ANES. (WRVU 0.86) performed by Lamar Smith MD at [facility] MAIN OR ??? PRO ENDOSCOPY W/VIDEO-ASST VEIN HARVEST, CABG Right 07/07/2017 ENDOSCOPIC HARVEST VEIN(S) FOR CABG (WRVU 0.31) performed by Yuan Retana MD at [facility] MAIN OR ??? PRO THYROIDECTOMY 03/28/2013 THYROIDECTOMY, TOTAL OR COMPLETE performed by Manny Mcknight MD at [facility] MAIN OR Social Hx: Social History [...] Cardiology Zulma Dolan MD [facility] [place], [place] [address] (Wo rk) 05/28/2022 Laboratory Appointment Lab 05/28/2022 Office Visit Cardiology Zulma Dolan MD [facility] [place] [address] Liz Poole PA [facility] [place] [address] 06/10/2022 Office Visit Dermatology Laura Scherer MD [facility] [address] [place], [place] [address] (Wo rk) documented as of [...] [facility] Range Method Time Signature VB Text Department: Vascular Surgery Lab VASCUBASE Report Patient: [id number] (GREGORY FATIMA) CPT: 18863 ICD10: T81.89XA;I75.021 Referring Physician: ARIK CLEMENT ?? [...] 98 65 - 199 [facility] mg/dL [facility], [...] or in patients with acute kidney failure. [email or web address] [email or web address] Specimen Anatomical Collection Method Collection Time Receive d Time (Source) Location / / Volume Laterality Blood specimen 08/26/2017 2:00 PM 018 2:15 (specimen) EST PM EST Resulting Agency Comment Spec In Lab Danette Maxwell HAND ENDBAND CUTTER CHEMISTRY ORDERABLES Performing Organization Address City/[facility]/ZIP Code Phon e Number [address] (ABNORMAL) pro-Brain Natriuretic Peptide (08/26/2017 2:00 PM EST) P athologist Signature ProBNP 2,373 (H) <=125 [facility] pg/mL [facility] LABORATORY Specimen Anatomical Collection Method Collection Time Receive d Time (Source) Location / / Volume Laterality Blood specimen 08/26/2017 2:00 PM 018 2:15 (specimen) EST PM EST Resulting Agency Comment Spec In Lab Danette A [place] STACIE CHEMISTRY ORDERABLES Performing Organization Address City/[facility] [place] [address] documented in this encounter Visit Diagnoses Diagnosis Atheroembolism of foot, right Delayed surgical wound healing, initial encounter Acute on chronic systolic congestive hea rt failure Acute on chronic systolic heart failure Ischemic cardiomyopathy Other specified forms of chronic ischemi c heart disease documented in this encounter Care Teams Oracle Security Consultant Relationship Specialty Start Date End Date Lovely Vicente MD PCP - General 04/16/[address] [place] [address] documented as of this encounter
--- OUTSIDE RECORDS SUMMARY | 2022-05-11 08:43 | XMS_ITS | Encounter Summary ---
:1945 Author Organization [place] [address] Care Team Providers Name Role Phone Lovely Vicenet MD Primary Care Provider Encounter Details Date Type Department Care Team Description 08/26/2018 Transcribe Orders Laboratory Lovely Vicente, Deferred diagnosis [facility] on axis I [address] [address] [place], [place] [phone] Social History Tobacco Use Types Packs/Day Years [...] Dolan MD [facility] [address] [place], [place] [address] (Wo rk) 05/28/2022 Laboratory Appointment Lab 05/28/2022 Office Visit Cardiology Zulma Dolan MD [facility] [place] [address] Liz Poole PA [facility] [place] [address] 06/10/2022 Office Visit Dermatology Laura Scherer MD [facility] [address] [place], [place] [address] (Wo rk) documented as of this encounter Visit Diagnoses Diagnosis Deferred diagnosis on axis I Other unknown and unspecified cause of m orbidity or mortality documented in this encounter Care Teams Slide Fastener Chain Assembler Relationship Specialty Start Date End Date Lovely Vicente MD PCP - General 04/16/15 [facility] [address] [place] [address] documented as of this encounter
--- OUTSIDE RECORDS SUMMARY | 2022-05-11 08:43 | XMS_ITS | Encounter Summary ---
:1945 Author Organization [facility] [place] [address] Care Team Providers Name Role Phone Lovely Vicente MD Primary Care Provider Reason for Visit Reason Onset Date Comments Other 11/11/2017 Please call [facility] Encounter Details Date Type Department Care Team Description 11/11/2017 Telephone Cardiology at [facility] Danette Maxwell, Other (Please call [facility] BUSINESS BANKING MANAGER [facility] ) [place] [address] CARDIOLOGY [place], [place] [address] (Wo rk) Social History Tobacco [...] Zulma Dolan MD [facility] [address] [place], [place] [address] (Wo rk) 05/28/2022 Laboratory Appointment Lab 05/28/2022 Office Visit Cardiology Zulma Dolan MD [facility] [place] [address] Liz Poole PA [facility] [place] [address] 06/10/2022 Office Visit Dermatology Laura Scherer MD [facility] [address] [place], [place] [address] (Wo rk) documented as of this encounter Visit Diagnoses Not on filedocumented in this encounter Care Teams Goat Herder Relationship Specialty Start Date End Date Lovely Vicente MD PCP - General 04/16/15 [facility] [address] [place] [address] documented as of this encounter
--- OUTSIDE RECORDS SUMMARY | 2022-05-11 08:43 | XMS_ITS | Encounter Summary ---
:1945 Author Organization [facility] [place] [address] Care Team Providers Name Role Phone Lovely Vicente MD Primary Care Provider Reason for Visit Reason Onset Date Comments Follow-up 07/13/2018 amiodarone discontin ued Encounter Details Date Type Department Care Team Description 07/13/2018 Telephone Cardiology at [facility] [place] Martha Comer, Follow-up (amiodarone [facility] RN discontin ued) [place] [address] Social History Tobacco Use Types Packs/Day [...] RN - 07/13/2018 8:57 AM EST Per ASSISTANT COOK Hans call placed to the home number for the pt. confirmed that the pt is still taking the amiodarone. Pt is to stop the amiodarone. Pt taking it for post op a-fib, therapy was supposed to be for 30 days. Message given to his . She will give him the message and will have him call with any questions. Call placed to the [facility] in [place] to discontinue it there as well. Med list updated. documented in this encounter Plan of Treatment Upcoming Encounters Date Type Specialty Care Team Description 05/28/2022 Appointment Cardiology Zulma Dolan MD [facility] [address] [place], [place] [address] (Wo rk) 05/28/2022 Laboratory Appointment Lab 05/28/2022 Office Visit Cardiology Zulma Dolan MD [facility] [place] [address] Liz Poole PA [facility] [place] [address] 06/10/2022 Office Visit Dermatology Laura Scherer MD [facility] [address] [place], [place] [address] (Wo rk) documented as of this encounter Visit Diagnoses Not on filedocumented in this encounter Care Teams Nitroglycerin Supervisor Relationship Specialty Start Date End Date Lovely Vicente MD PCP - General 04/16/[address] [place] [address] documented as of this encounter
--- OUTSIDE RECORDS SUMMARY | 2022-05-11 08:43 | XMS_ITS | Encounter Summary ---
:1945 Author Organization [facility] [place] [address] Care Team Providers Name Role Phone Lovely Vicente MD Primary Care Provider Reason for Referral Diagnostic Test (Routine) - Specialty Diagnoses / Procedures Referred By Contact Refer red To Contact Cardiology Diagnoses Chronic systolic heart failure Danette Maxwell APRN [facility] Non-Inv Card Lab Procedures Echocardiogram Transthoracic(Leb) [facility] [phone] [place] [address] Referral ID Status Reason Start Date Expiration Visits Visits Date Requested Authorized [id number] Specialty 08/15/2018 08/15/2018 1 1 Service Requested Reason for Visit Diagnostic Test (Routine) - Specialty Diagnoses / Procedures Referred By Contact Nawaf owen To Contact Cardiology Diagnoses Chronic systolic heart failure Danette Maxwell APRN [facility] Non-Inv Card Lab Procedures Echocardiogram Transthoracic(Leb) [facility] [place] [address] [place] [address] Referral ID Status Reason Start Date Expiration Visits Visits Date Requested Authorized [id number] Specialty 08/15/2018 08/15/2018 1 1 Service Requested Encounter Details Date Type Department Care Team Description 08/15/2018 Hospital Encounter Non-Invasive Danette Maxwell Chron ic systolic Cardiology Lab Barbara Gomes APRN heart failure [facility] [place] [address] [place], [place] [phone] (Work) [phone] Social History Tobacco Use Types Packs/Day Years [...] Zulma Dolan MD [facility] [place], [place] [address] (Wo rk) 05/28/2022 Laboratory Appointment Lab 05/28/2022 Office Visit Cardiology Zulma Dolan MD [facility] [address] Liz Poole PA [facility] [place] [address] 06/10/2022 Office Visit Dermatology Laura Scherer MD [facility] [address] [place], [place] [address] (Wo rk) documented as of [...] Mccollum ? (Age): 1945(73y) Med Rec#: ? [id number] ?Sex: ?M ? [facility] ? [facility] ?Ht / Wt: ??172(cm)/81(kg) Pt. Loc: ?Echo Lab ?BSA: ?1.94 Study Date: ?? 08/15/2018 ?Pt. Type: Outpatient Tape: ? Referring: MARY ELLEN Reading: Scott Ortega ([id number]) Mill Operator Helper: Laura Sargent Diagnosis: *Chronic systolic (congestive) heart [...] E-wave Vmax ?1.2 ?m/sec ? MV deceleration [id number] ? msec ? MV A-wave Vmax ?0.7 [...] ? Mid-Inferior ?Hypokinetic ? Mid-Inferoseptal ?Hypokinetic ? Se[place]our-Septal ? Akinetic ? [place]-Anterior ? Hypokinetic ? [place]-Lateral ?Akinetic ? [place]-Inferior ? Hypokinetic ? [place]-Tip ?Akinetic ? This report has been electronically sign ed by: _ Scott Ortega M.D. ? 08/15/2018 08:17:26 Images reviewed and interpretation ver ied [facility] Cardiac Ultrasound Laboratory Procedure Note Scott Ortega MD - 08/15/2018Format ting of this note might be different from the original. Procedure: Transthoracic Echocardiogram Patient: NATALYA MCBRIDE(Age): [birth year]73y) Med Rec#: [id number] Sex: M Site Loc: [facility] Ht / Wt: 172(cm)/81(kg) Pt. Loc: Echo Lab BSA: 1.94 Study Date: 08/15/2018 Pt. Type: Outpati ent Tape: Referring: MARY ELLEN Reading: Scott Ortega ([id number]) Mill Operator Helper: Laura Sargent Diagnosis: *Chronic systolic (congestive) heart [...] MV E-wave Vmax 1.2 m/sec MV deceleration evkw039.4 msec MV A-wave Vmax 0.7 m/sec MV [...] Akinetic Mid-Posterolateral Akinetic Mid-Inferior Hypokinetic Mid-Inferoseptal Hypokinetic Se[place]-Septal Akinetic [place]-Anterior Hypokinetic [place]-Lateral Akinetic [place]-Inferior Hypokinetic [place]-Tip Akinetic This report has been electronically sign ed by: _ Scott Ortega M.D. 08/15/2018 08:17: 26 Images reviewed and interpretation verif ied [facility] Cardiac Ultrasound Laboratory Danette A Hans LOLLYPOP MACHINE OPERATOR ECHO ORDERABLES documented in this encounter [...] Routine documented in this encounter Care Teams Levelman Relationship Specialty Start Date End Date Lovely Vicente MD PCP - General 04/16/[address] [place] [address] documented as of this encounter
--- OUTSIDE RECORDS SUMMARY | 2022-05-11 08:43 | XMS_ITS | Encounter Summary ---
:1945 Author Organization [facility] [place] [address] Care Team Providers Name Role Phone Lovely Vicente MD Primary Care Provider Encounter Details Date Type Department Care Team Description 04/18/2018 Laboratory Appointment Lab 3L [facility] [place] [phone] Social History Tobacco Use Types Packs/Day Years [...] Dolan MD [facility] [place] [address] [place], [place] [address] (Wo rk) 05/28/2022 Laboratory Appointment Lab 05/28/2022 Office Visit Cardiology Zulma Dolan [place] [facility] [place] [address] Lzi Poole PA [facility] [place] [address] 06/10/2022 Office Visit Dermatology Laura Scherer MD [facility] ER [address] [place], [place] [address] (Wo rk) documented as [...] 8.0 [facility] gm/dL [facility] Albumin 4.0 3.2 - 5.2 [facility] gm/dL [facility] AST 36 0 - 39 [facility] unit/L [facility] ALT 27 0 - 55 [facility] unit/L [facility] Alk Phos 96 40 - 120 [facility] unit/L [facility] Total 0.7 0.2 - 1.3 [place] 99times.cn Bilirubin mg/dL [facility] Bili, Direct 0.1 0.0 - 0.3 [facility] mg/dL [facility] Specimen Anatomical Collection Method Collection Time Receive d Time (Source) Location / / Volume Laterality Blood specimen Venous Draw / 04/18/2018 9:19 AM 2017 9:44 (specimen) Unknown EDT AM EDT Resulting Agency Comment Spec In Lab Danette Maxwell APRN CHEMISTRY ORDERABLES Performing Organization Address City/State/[place] [address] TSH (04/18/2018 9:19 AM EDT) athologist Signature TSH 1.77 0.27 - 4.20 [facility] mlU/ML [facility] Specimen Anatomical Collection Method Collection Time Receive d Time (Source) Location / / Volume Laterality Blood specimen Venous Draw / 04/18/2018 9:19 AM 2017 9:44 (specimen) Unknown EDT AM EDT Resulting Agency Comment Spec In Lab Danette Maxwell APRN CHEMISTRY ORDERABLES Performing Organization Address City/State/[place] [address] (ABNORMAL) Basic Metabolic Panel (non-fasting) (04/18/2018 9:19 AM EDT) athologist Signature Glucose Lvl 167 65 - 199 [facility] mg/dL [facility] Comment: [...] of body mass or the acutely ill. http://[employer]/DHMCnkf eGFR 70 >=60 mL/min/1.73 m?? [facility] Comment: The eGFR was calculated using the CKD-EP I equation. As with all creatinine based estimates of kidney function, eGFR values calculated with the CKD-EPI equation are not accurate in patients wi th acute kidney failure, extremes of body mass or the acutely ill. http://[employer]/DHnkf Specimen Anatomical Collection Method Collection Time Receive d Time (Source) Location / / Volume Laterality Blood specimen 04/18/2018 9:19 AM 018 9:34 (specimen) EDT AM EDT Resulting Agency Comment Spec In Lab Danette Maxwell APRN CHEMISTRY ORDERABLES Performing Organization Address City/[facility]/[place]IP [place] [address] (ABNORMAL) pro-Brain Natriuretic Peptide (04/18/2018 9:19 AM EDT) P athologist Signature ProBNP 2,199 (H) <=125 [facility] pg/mL [facility] Specimen Anatomical Collection Method Collection Time Receive d Time (Source) Location / / Volume Laterality Blood specimen 04/18/2018 9:19 AM 018 9:34 (specimen) EDT AM EDT Resulting Agency Comment Spec In Lab Danette Maxwell APRN CHEMISTRY ORDERABLES Performing Organization Address City/[facility]/ZIP [place] [address] documented in this encounter Visit Diagnoses Diagnosis Chronic systolic heart failure documented in this encounter Care Teams Policy Advisor Relationship Specialty Start Date End Date Lovely Vicente MD PCP - General 04/16/[address] [place] [address] documented as of this encounter
--- OUTSIDE RECORDS SUMMARY | 2022-05-11 08:43 | XMS_ITS | Encounter Summary ---
:1945 Author Organization [facility] [place] [address] Care Team Providers Name Role Phone Lovely Vicente MD Primary Care Provider Encounter Details Date Type Department Care Team Description 08/15/2018 Office Visit Cardiology at [facility] Danette Maxwell Chronic systolic heart failu re; [facility] A, DRY PAN OPERATOR Cardiomyopathy, ischemic; [facility] ASCVD (arteriosclerotic card iovascular disease); [place], [place] Essential hypertension; [phone] CARDIOLOGY MARIA VICTORIA on CPAP [phone] [place], [place] [address] Social History Tobacco Use Types [...] in this encounter Progress Notes Danette Maxwell, DRY PAN OPERATOR - 08/15/2018 9:00 AM EST Images [...] his medications today. 1. ASCVD S/p CABG, THOMPOSN->LAD, Seq SVG->OM1->D1 (07/07/2017) Continue ASA, BB and [...] K+ 4.6 today 6. Post-op atrial fibrillation [id number] 7 (CHF, HTN, DM, vascular disease, thromboembolism) Amiodarone discontinued Continue coumadin INR managed by PCP. 2.1 today 7. PAD 08/06/2017: Right 1st, 2nd, 3rd toe amputation 08/11/2017: Left??femoral arterial access, RLE??angiogram, Balloon angioplasty of R PT with Eleazar 2.5 x 80 10/25/2017: right popliteal-pedal bypass at [facility] 8. Hypothyrodism S/p thyroidectomy for goiter Continue [...] Dolan MD [facility] [address] [place] [address] (Wo rk) 05/28/2022 Laboratory Appointment Lab 05/28/2022 Office Visit Cardiology Zulma Dolan MD [facility] [place] [address] Liz Poole PA [facility] [place] [address] 06/10/2022 Office Visit Dermatology Laura Scherer MD [facility] ER DR [address]-DERMAT OLOGY [place], [place] [address] (Wo rk) documented as of this encounter Results Lipid Panel (08/15/2018 8:04 AM EST) athologist Signature Chol, Total 75 mg/dL [facility] Comment: Lower Risk: <200 mg/dL Average Risk: 200-239 mg/dL Higher Risk: >iu=772 mg/dL Triglycerides 185 mg/dL [facility] Comment: Average Risk/Lower Risk: <150 mg/dL Borderline High Risk: 150-199 mg/dL High Risk: 200-499 mg/dL Very High Risk: >fg=148 mg/dL HDL 32 mg/dL [facility] Comment: Males: ?? Higher Risk: <40 mg/dL Females: ?? HIgher Risk: <50 mg/dL LDL Cholesterol 6 mg/dL [facility] Comment: Lowest Risk: <100 mg/dL Lower Risk: 100-129 mg/dL Borderline High Risk: 130-159 mg/dL High Risk: 160-189 mg/dL Very High Risk: >op=518 mg/dL Chol/HDL Ratio 2.3 ratio [facility] Lipid Interpretation See Note [facility] Comment: Lipid management should be guided by a p atient? s ASCVD risk, goals and preferences. ACC/AHA Guidelines recommend high intens ity statin if clinical ASCVD or LDL greater than or equal to 190 mg/dL. http://422 Groupurl.com/YGM-BXK-Pqgigcyib Adults aged 40-75 with LDL 70-189 mg/dL should have their 10 year ASCVD risk estimated with the ACC/AHA ASCVD risk es timator http://tools.acc.org/AZUCM-Oeib-Sxglsqyw r/ Statin should be discussed if risk [...] Organization Address City/State/ZIP [place] [address] (ABNORMAL) Basic Metabolic Panel (non-fasting) (08/15/2018 8:04 AM EST) P athologist Signature Glucose Lvl 116 65 - 199 [facility] mg/dL [facility] [...] LABORATORY Calcium 9.0 8.5 - 10.5 mg/dL [facility] Estimated GFR 68 >=60 mL/min/1.73 m?? [facility] Comment: The eGFR was calculated using the CKD-EP I equation. As with all creatinine based estimates of kidney function, eGFR values calculated with the CKD-EPI equation are not accurate in patients wi th acute kidney failure, extremes of body mass or the acutely ill. [email or web address]/[facility] eGFR 79 >=60 mL/min/1.73 m?? [facility] Comment: The eGFR was calculated using the CKD-EP I equation. As with all creatinine based estimates of kidney function, eGFR values calculated with the CKD-EPI equation are not accurate in patients wi th acute kidney failure, extremes of body mass or the acutely ill. [email or web address]/[facility] Specimen Anatomical Collection Method Collection Time Receive d Time (Source) Location / / Volume Laterality Blood specimen 08/15/2018 8:04 AM 019 8:20 (specimen) EST AM EST Resulting Agency Comment Spec In Lab Danette Maxwell APRN CHEMISTRY ORDERABLES Performing Organization Address City/State/ZIP Code Phon e Number [address] (ABNORMAL) pro-Brain Natriuretic Peptide (08/15/2018 8:04 AM EST) P athologist Signature ProBNP 1,797 (H) <=125 [facility] pg/mL [facility] Specimen Anatomical Collection Method Collection Time Receive d Time (Source) Location / / Volume Laterality Blood specimen 08/15/2018 8:04 AM 019 8:20 (specimen) EST AM EST Resulting Agency Comment Spec In Lab Danette Maxwell APRN CHEMISTRY ORDERABLES Performing Organization Address City/State/[place] [address] documented in this encounter Visit Diagnoses Diagnosis Chronic systolic heart failure Cardiomyopathy, ischemic Other specified forms of chronic ischemi c heart disease ASCVD (arteriosclerotic cardiovascular d isease) Unspecified cardiovascular disease Essential hypertension Unspecified essential hypertension MARIA VICTORIA on CPAP Obstructive sleep apnea (adult) (pediatr ic) documented in this encounter Care Teams Extrusion Press Operator Relationship Specialty Start Date End Date Lovely Vicente MD PCP - General 04/16/15 [address] [place] [address] documented as of this encounter
--- OUTSIDE RECORDS SUMMARY | 2022-05-11 08:43 | XMS_ITS | Encounter Summary ---
:1945 Author Organization [facility] [place] [address] Care Team Providers Name Role Phone Lovely Vicente MD Primary Care Provider Encounter Details Date Type Department Care Team Description 10/05/2017 Unscheduled Cardiology at [facility] RONNIE Sin PATIENT NOT SEEN Encounter [facility] Tamiko Martinez MD [facility] [phone] CARDIOLOGY DEPT [phone] [place] [address] Social History Tobacco Use Types Packs/Day Years [...] Dolan MD [facility] [address] [place], [place] [address] (Wo rk) 05/28/2022 Laboratory Appointment Lab 05/28/2022 Office Visit Cardiology Zulma Dolan MD [facility] [place] [address] Liz Poole PA [facility] [place] [address] 06/10/2022 Office Visit Dermatology Laura Scherer MD [facility] DR [address]DERMAT [place], [place] [address] (Wo rk) documented as of this encounter Visit Diagnoses Diagnosis DH PATIENT NOT SEEN documented in this encounter Care Teams Proposal Editor Relationship Specialty Start Date End Date Lovely Vicente MD PCP - General 04/16/[address] [place] [address] documented as of this encounter
--- OUTSIDE RECORDS SUMMARY | 2022-05-11 08:43 | XMS_ITS | Encounter Summary ---
:1945 Author Organization [facility] [place] [address] Care Team Providers Name Role Phone Lovely Vicente MD Primary Care Provider Encounter Details Date Type Department Care Team Description 09/06/2017 Orders Only Vascular Surgery at [facility] Ninfa Clark, [facility] [place] [address] Social History Tobacco Use Types Packs/Day [...] MD [facility] er Dr [place], [place] [address] (Wo rk) 05/28/2022 Laboratory Appointment Lab 05/28/2022 Office Visit Cardiology Zulma Dolan MD [facility] [place] [address] Liz Poole PA [facility] [place] [address] 06/10/2022 Office Visit Dermatology Laura Scherer MD [facility] [address]MAT [place], [place] [address] (Wo rk) documented as of this encounter Visit Diagnoses Not on filedocumented in this encounter Care Teams Dry Plasterer Helper Relationship Specialty Start Date End Date Lovely Vicente MD PCP - General 04/16/[address] [place] [address] documented as of this encounter
--- OUTSIDE RECORDS SUMMARY | 2022-05-11 08:43 | XMS_ITS | Encounter Summary ---
:1945 Author Organization [facility] [place] [address] Care Team Providers Name Role Phone Lovely Vicente MD Primary Care Provider Encounter Details Date Type Department Care Team Description 10/05/2017 Telephone Cardiology at [facility] Tamiko Sin MD [facility] [place] [address] CARDIOLOGY DEPT [phone] [place], [place] [address] (Wo rk) Social [...] MD [facility] er [address] [place] [address] (Wo rk) 05/28/2022 Laboratory Appointment Lab 05/28/2022 Office Visit Cardiology Zulma Dolan MD [facility] [place] [address] Liz Poole PA [facility] [place] [address] 06/10/2022 Office Visit Dermatology Laura Scherer MD [facility] ER DR TE[address]DERMAT [place], [place] [address] (Wo rk) documented as of this encounter Visit Diagnoses Not on filedocumented in this encounter Care Teams Assignment Officer Relationship Specialty Start Date End Date Lovely Vicente MD PCP - General 04/16/[address] [place] [address] documented as of this encounter
--- OUTSIDE RECORDS SUMMARY | 2022-05-11 08:43 | XMS_ITS | Encounter Summary ---
:1945 Author Organization [place] [address] Care Team Providers Name Role Phone Lovely Vicente MD Primary Care Provider Reason for Visit Reason Onset Date Comments [facility]NA Calls 08/30/2017 Encounter Details Date Type Department Care Team Description 08/30/2017 Telephone Vascular Surgery at [facility] Cora Reid RN [facility] Calls [facility] [place] [address] Social History Tobacco Use Types Packs/Day [...] Caller: Alfonso at [facility] [phone] Reason for call: Changing his wound vac [...] had been in contact with [facility]'s Wound Care Nurse who advised him [...] MD [facility] [address] [place], [place] [address] (Wo rk) 05/28/2022 Laboratory Appointment Lab 05/28/2022 Office Visit Cardiology Zulma Dolan MD [facility] [place] [address] Liz Poole PA [facility] [place] [address] 06/10/2022 Office Visit Dermatology Laura Scherer MD [facility] DR TE[address]DERMAT [place], [place] [address] (Wo rk) documented as of this encounter Visit Diagnoses Not on filedocumented in this encounter Care Teams Ultrasonic Tester Relationship Specialty Start Date End Date Lovely Vicente MD PCP - General 04/16/[address] [place] [address] documented as of this encounter
--- OUTSIDE RECORDS SUMMARY | 2022-05-11 08:43 | XMS_ITS | Encounter Summary ---
:1945 Author Organization [facility] [place] [address] Care Team Providers Name Role Phone Lovely Vicente MD Primary Care Provider Encounter Details Date Type Department Care Team Description 09/16/2017 Hospital [place] [address] Social History Tobacco Use Types Packs/Day [...] Zulma Dolan MD [facility] [place], [place] [address] (Wo rk) 05/28/2022 Laboratory Appointment Lab 05/28/2022 Office Visit Cardiology Zulma Dolan MD [facility] [place] [address] Liz Poole PA [facility] [place] [address] 06/10/2022 Office Visit Dermatology Laura Scherer MD [facility] DR TE[address] GR[address]DERMAT [place], [place] [address] (Wo rk) documented as of this encounter Procedures Procedure Name Priority Date/Time Associated Diagnosis Comme [facility] SURGICAL PATHOLOGY Routine 09/16/2017 7:28 AM Res ults for this REPORT EST procedure are i n the results section. documented in this encounter Results Surgical Pathology Report (09/16/2017 7:28 AM EST) Component Value Ref Test Analysis Performed At [facility] Method Time Signature Surgical [id number] ? Location: [facility] Pathology [place] Report The signing pathologist has (i) examined [...] Henrique Flower Verified: ??09/24/2017 ?Pathologist Performed at: ??-[facility] Dept. of Pathology, [place], [place] CLINICAL INFORMATION Specimen Submitted: A - [...] City/State/Z[place] [address] documented in this encounter Visit Diagnoses Not on filedocumented in this encounter Care Teams Test Lab Technician Relationship Specialty Start Date End Date Lovely Vicente MD PCP - General 04/16/[address] [place] [address] documented as of this encounter
--- OUTSIDE RECORDS SUMMARY | 2022-05-11 08:43 | XMS_ITS | Encounter Summary ---
:1945 Author Organization [facility] [place] [address] Care Team Providers Name Role Phone Lovely Vicente MD Primary Care Provider Encounter Details Date Type Department Care Team Description 10/07/2017 Laboratory Appointment Lab 3L [facility] [place] [phone] Social History Tobacco Use Types Packs/Day Years [...] [facility] er [place], [place] [address] (Wo rk) 05/28/2022 Laboratory Appointment Lab 05/28/2022 Office Visit Cardiology Zulma Dolan MD [facility] [place] [address] Liz Poole PA [facility] [place] [address] 06/10/2022 Office Visit Dermatology Laura Scherer MD [facility] ER DR TEJA GR-DERMAT [place] [facility] [place] Amy (Wo rk) documented as of [...] Signature Glucose Lvl 99 65 - 199 [facility] mg/dL [facility] Comment: Diabetes: [...] or in patients with acute kidney failure. [email or web address]/DHnkdep [email or web address]/DHMCnkf Specimen Anatomical Collection Method Collection Time Receive d Time (Source) Location / / Volume Laterality Blood specimen 10/07/2017 8:48 AM 018 8:50 (specimen) EDT AM EDT Resulting Agency Comment Spec In Lab Danette Maxwell CULLET CRUSHER AND WASHER CHEMISTRY ORDERABLES Performing Organization Address City/[facility]/ZIP Code Phon e Number [address] (ABNORMAL) pro-Brain Natriuretic Peptide (10/07/2017 8:48 AM EDT) athologist Signature ProBNP 1,170 (H) <=125 [facility] pg/mL [facility] Specimen Anatomical Collection Method Collection Time Receive d Time (Source) Location / / Volume Laterality Blood specimen 10/07/2017 8:48 AM 018 8:50 (specimen) EDT AM EDT Resulting Agency Comment Spec In Lab Danette A Hans QUINNOES CHEMISTRY ORDERABLES Performing Organization Address City/State/[place] [address] documented in this encounter Visit Diagnoses Diagnosis Chronic systolic heart failure documented in this encounter Care Teams Paper Cup Machine Operator Relationship Specialty Start Date End Date Lovely Vicente MD PCP - General 04/16/15 [address] [place] [address] documented as of this encounter
--- OUTSIDE RECORDS SUMMARY | 2022-05-11 08:43 | XMS_ITS | Encounter Summary ---
:1945 Author Organization [place] [address] Care Team Providers Name Role Phone Lovely Vicente MD Primary Care Provider Encounter Details Date Type Department Care Team Description 09/07/2017 Office Visit Endocrinology at [facility] Maria Ines [facility] [place] [address] CENTER [phone] ENDOCRINOLOGY DEPT [place], [place] [address] Social History Tobacco Use Types [...] Dolan MD [facility] er Dr [place], [place] [address] (Wo rk) 05/28/2022 Laboratory Appointment Lab 05/28/2022 Office Visit Cardiology Zulma Dolan MD [facility] [place] [address] Liz Poole PA [facility] [place] [address] 06/10/2022 Office Visit Dermatology Laura Scherer MD [facility] ER DR TEJA GR[address]DERMAT [place], [place] [address] (Wo rk) documented as of this encounter Visit Diagnoses Diagnosis Hx of papillary thyroid carcinoma Personal history of malignant neoplasm o f thyroid documented in this encounter Care Teams Occasional Caregiver Relationship Specialty Start Date End Date Lovely Vicente MD PCP - General 04/16/[address] [facility] [address] [place] [address] documented as of this encounter
--- OUTSIDE RECORDS SUMMARY | 2022-05-11 08:43 | XMS_ITS | Encounter Summary ---
:1945 Author Organization [facility] Address [facility] [place] [address] Care Team Providers Name Role Phone Lovely Vicente MD Primary Care Provider Reason for Referral Diagnostic Test (Routine) - Closed Specialty Diagnoses / Procedures Referred By Contact Refer red To Contact Cardiology Diagnoses Chronic systolic heart failure Danette Maxwell APRN [facility] Non-Inv Card Lab Procedures Echocardiogram Transthoracic(Leb) [facility] [place] [address] [place] [address] Referral ID Status Reason Start Date Expiration Date Visits V isits Requested Authorized [id number] Closed Specialty 07/17/2019 09/14/2019 1 1 Service Requested Encounter Details Date Type Department Care Team Description 01/16/2019 [place] [facility] [place] Maxwell, Chronic systolic heart failu re; [facility] STACIE Cardiomyopathy, ischemic; Drive [facility] Hx of thyroid cancer; [place], [place] [address] (arteriosclerotic heart disease); [phone] CARDIOLOGY MARIA VICTORIA (obstructive sleep apnea) on CPAP [phone] [place], [place] [address] (Wo rk) Social History Tobacco Use Types [...] K+ 4.6 today 6. Post-op atrial fibrillation [id number] (CHF, HTN, DM, vascular disease, thromboembolism) [...] Cardiology Zulma Dolan MD [facility] [place], [place] [address] (Wo rk) 05/28/2022 Laboratory Appointment Lab 05/28/2022 Office Visit Cardiology Zulma Dolan MD [facility] [place] [address] Liz Poole PA [facility] [place] [address] 06/10/2022 Office Visit Dermatology Laura Scherer MD [facility] [address] [place], [place] [address] (Wo rk) documented as of this encounter Results ECHOCARDIOGRAM COMPLETE W CONTRAST (07/28/2019 8:19 AM EST) athologist Signature EF 40 [facility]ART[facility] SYSTEM Anatomical Region Laterality Modality Other Specimen (Source) Anatomical Location Collection Method / Collectio n Time Received Time / Laterality Volume 07/28/2019 Narrative 07/28/2019 8:38 AM EST Procedure: ?Transthoracic Echocardiogram Patient: ?NATALYA Mccollum ? (Age): 1945(74y) Med Rec#: ? [id number] ?Sex: ?M ? [place] ? [facility] [place]Ht / Wt: ??172(cm)/81(kg) Pt. Loc: ?Echo Lab ?BSA: ?1.94 Study Date: ?? 07/28/2019 ?Pt. Type: Outpatient Tape: ? Referring: MARY ELLEN Reading: Ifeanyi Truong ([id number]) Candy Department Manager: Fadumo Flanagan RDCS, [place] Diagnosis: *Chronic [...] E-wave Vmax ?1 ?m/sec ? MV deceleration akio667.5 ? msec ? MV A-wave Vmax ?1 [...] ? Pulmonic Valve/Qp:Qs ?Value ?Units (Range) ? ID end-diastolic Vma1.1 ?m/sec ? Wall Motion: Segment Name ?Rest ? Base-Anteroseptal ?? Normal ? Base-Anterior ? Normal ? Base-Anterolateral ??Normal ? Base-Posterolateral Normal ? Base-Inferior ? Akinetic ? Base-Inferoseptal ?? Normal ? Mid-Anteroseptal ?Normal ? Mid-Anterior ?Hypokinetic ? Mid-Anterolateral ?? Normal ? Mid-Posterolateral ??Normal ? Mid-Inferior ?Hypokinetic ? Mid-Inferoseptal ?Normal ? [place]-Septal ? Normal ? [place]-Anterior ? Hypokinetic ? [place]-Lateral ?Normal ? [place]-Inferior ? Akinetic ? [place]-Tip ?Hypokinetic ? This report has been electronically sign ed by: _ Ifeanyi Truong M.D. ? 07/28/2019 0 8:38:01 Images [facility] Procedure Note Ifeanyi Truong MD - 07/28/2019Formatt ing of this note might be different from the original. Procedure: Transthoracic Echocardiogram Patient: NATALYA MCBRIDE(Age): [birth year]74y) Med Rec#: [id number] Sex: M [place] [facility] Ht / Wt: 172(cm)/81(kg) Pt. Loc: Echo Lab BSA: 1.94 Study Date: 07/28/2019 Pt. Type: Outpati ent Tape: Referring: MARY ELLEN Reading: Ifeanyi Truong ([id number]) Candy Department Manager: Fadumo Flanagan [facility], [place] Diagnosis: *Chronic systolic (congestive) heart [...] MV E-wave Vmax 1 m/sec MV deceleration lknm573.5 msec MV A-wave Vmax 1 m/sec MV [...] 0.7 ratio Pulmonic Valve/Qp:Qs Value Units (Range) ID end-diastolic Vma1.1 m/sec Wall Motion: Segment Name Rest Base-Anteroseptal Normal Base-Anterior Normal Base-Anterolateral Normal Base-Posterolateral Normal Base-Inferior Akinetic Base-Inferoseptal Normal Mid-Anteroseptal Normal Mid-Anterior Hypokinetic Mid-Anterolateral Normal Mid-Posterolateral Normal Mid-Inferior Hypokinetic Mid-Inferoseptal Normal [place]-Septal Normal [place]-Anterior Hypokinetic [place]-Lateral Normal [place]-Inferior Akinetic [place]-Tip Hypokinetic This report has been electronically sign ed by: _ Ifeanyi Truong M.D. 07/28/2019 08:38:0 1 Images reviewed and interpretation verif ied [facility] Cardiac Ultrasound Laboratory Danette Maxwell APRN ECHO ORDERABLES (ABNORMAL) Basic Metabolic Panel (non-fasting) (01/16/2019 7:49 AM EDT) P athologist Signature Glucose Lvl 105 65 - 199 [facility] mg/dL [facility] Comment: Diabetes: >=200 [...] of body mass or the acutely ill. [email or web address] eGFR 79 >=60 mL/min/1.73 m?? [facility] Comment: The eGFR was calculated using the CKD-EP I equation. As with all creatinine based estimates of kidney function, eGFR values calculated with the CKD-EPI equation are not accurate in patients wi th acute kidney failure, extremes of body mass or the acutely ill. [email or web address] Specimen Anatomical Collection Method Collection Time Receive d Time (Source) Location / / Volume Laterality Blood specimen 01/16/2019 7:49 AM 019 7:55 (specimen) EDT AM EDT Resulting Agency Comment Spec In Lab Danette Maxwell APRN CHEMISTRY ORDERABLES Performing Organization Address City/State/ZIP [place] [address] (ABNORMAL) pro-Brain Natriuretic Peptide (01/16/2019 7:49 AM EDT) P athologist Signature ProBNP 780 (H) <=125 pg/mL [facility] Specimen Anatomical Collection Method Collection Time Receive d Time (Source) Location / / Volume Laterality Blood specimen 01/16/2019 7:49 AM 019 7:55 (specimen) EDT AM EDT Resulting Agency Comment Spec In Lab Danette Maxwell GRANTS DIRECTOR CHEMISTRY ORDERABLES Performing Organization Address City/State/ZIP [place] [address] documented in this encounter Visit Diagnoses Diagnosis Chronic systolic heart failure Cardiomyopathy, ischemic Other specified forms of chronic ischemi c heart disease Hx of thyroid cancer Personal history of malignant neoplasm o f thyroid ASHD (arteriosclerotic heart disease) Coronary atherosclerosis of unspecified type of vessel, [place] or graft MARIA VICTORIA (obstructive sleep apnea) on CPAP Obstructive sleep apnea (adult) (pediatr ic) Chronic systolic heart failure documented in this encounter Care Teams Log Washer Relationship Specialty Start Date End Date Lovely Vicente MD PCP - General 04/16/[address] [place] [address] documented as of this encounter
--- OUTSIDE RECORDS SUMMARY | 2022-05-11 08:43 | XMS_ITS | Encounter Summary ---
:1945 Author Organization [facility] [place] [address] Care Team Providers Name Role Phone Lovely Vicente MD Primary Care Provider Encounter Details Date Type Department Care Team Description 09/03/2017 Telephone [place]ascular [place] [facility] [place] Ninfa Clark, [place] [address] Social History Tobacco Use Types Packs/Day [...] help with the discomfort of the change. [employer] Producer told the [facility] that I would ask [...] Cardiology Zulma Dolan MD [facility] [place], [place] [address] (Wo rk) 05/28/2022 Laboratory Appointment Lab 05/28/2022 Office Visit Cardiology Zulma Dolan MD [facility] [place] [address] Liz Poole PA [facility] [place] [address] 06/10/2022 Office Visit Dermatology Laura Scherer MD [facility] [address] [place], [place] [address] (Wo rk) documented as of this encounter Visit Diagnoses Not on filedocumented in this encounter Care Teams Marketing Assistant Retail Division Relationship Specialty Start Date End Date Lovely Vicente MD PCP - General 04/16/[address] [place] [address] [address] [facility] [address] [place] [address] documented as of this encounter
--- OUTSIDE RECORDS SUMMARY | 2022-05-11 08:44 | XMS_ITS | Encounter Summary ---
:1945 [place] [address] Care Team Providers Name Role Phone Lovely Vicente MD Primary Care Provider Reason for Visit Auth/Cert Specialty Diagnoses / Procedures Referred By Contact Refer red To Contact Diagnoses Critical lower limb ischemia CELLULITIS RT FOOT Procedures EMERGENCY Referral ID Status Reason Start Date Expiration Date Visits Requ ested Visits Authorized [id number] 1 1 Encounter Details Date Type Department Care Team Description 08/06/2017 - Hospital Encounter 5 Yonathan Oneill lower limb ischemia; 08/16/2017 Su Flores MD Ischemic foot Hospital [facility] [address]iqu[place] [phone] Social History Tobacco Use Types Packs/Day Years [...] 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 Patient [...] Dorsalis Pedis (Ankle) Artery ?132 ? 0.94 ??Providence-Biphasic ? Posterior Tibial (Ankle) Artery ??154 ? 1.10 ??Providence-Biphasic ? Fourth Toe ? 67 ?0.48 ?? [...] For any problems or questions please call [phone] ZELDA Smith, architecture internship Nurse Clinician For issues on weeknights after 5pm and weekends please call [phone] and ask for the Vascular Fellow crap game box person. General Instructions None Future Appointments and Orders Future Appointments Provider Department Dept Phone 08/26/2017 4:00 PM Aurelia Rivera PA Vascular Surgery at [place] [phone] 09/07/2017 3:00 PM LAB, THREE L Lab 3L [facility] [phone] 09/07/2017 4:00 PM Luz Prescott MD Endocrinology at [place] [phone] 09/09/2017 8:00 AM Barbra Soares APRN Pain Management at [place] [phone] Please bring a list of your current [...] For any problems or questions please call [phone] ZELDA Smith, architecture internship Nurse Clinician For issues on weeknights after 5pm and weekends please call [phone] and ask for the Vascular Fellow crap game box person. documented in this encounter Medications at Time [...] Discharge Note Patient Destination: [facility] ([facility]) [address] [place] [address] Transportation: with (at bedside) Time of Discharge: by 12 noon Level of Care: swing Patient Aware: yes Family Notified: yes Md to call report to: Yissel Quintero WAREHOUSE SHIPPING ASSOCIATE already called RN to call report to: [phone] Shirin Wolf Office of Care Management Pager [phone] Shirin Wolf RN - 08/16/2017 10:50 AM EST [facility] has offered pt swing bed. Pt and accept bed. will transport via car. WAREHOUSE SHIPPING ASSOCIATE Yissel Quintero aware; d/c paperwork will be completed by 12 noon. [facility] requests pt arrival by 1400 today; WAREHOUSE SHIPPING ASSOCIATE, RN, and family aware. WAREHOUSE SHIPPING ASSOCIATE called [facility] and was told that they prefer pt to arrive with wound vac dressing applied but clamped. WAREHOUSE SHIPPING ASSOCIATE applied new wound vac dressing. RN has [facility] number to call report. PASSR completed; WAREHOUSE SHIPPING ASSOCIATE paged to request provider signature in highlighted space. Indigo from [facility] notified via email that home wound vac now cancelled; [facility] has picked up from room and order cancelled. Packet started and provided to rn community health. Medicare important message explained to patient, patient signed. Copy provided to patient and signature page to OCM for inclusion in pt EMR. Radha Georges - 08/16/2017 10:34 AM EST Office of Care Management/Contractor General Engineering Patient Name: Gregory Hoang : 1945 Patient has been offered a swing bed at [facility]. The patient will be transported by private transportation. No MD to MD report necessary Please call Nursing Report to [phone], ask for front desk associate. Info to accompany patient: Narcotic Prescriptions Copies of Medication Administration Records and IV sheets for past 10 days. Plan: Contractor General Engineering will be available to the patient and Imaging Account Manager-RN and/or Supervisor Hard Candy for further assistance. Patient will be discharged to: [place] [id number] Radha Powers, Contractor General Engineering Mira Black, VAMSI - 08/15/2017 10:05 PM EST [address] Flores to ask if he wanted to hold metoprolol dose. BP 95/58. OK to hold this dose Courtney Brito - 08/15/2017 3:26 PM EST Office of Care Management(OCM)/Contractor General Engineering(RS)/ D/C Planning re : Patient is medically [...] status. 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 Vac in place. [...] patient's referral to: [facility] PHONE: [phone] FAX: [phone] CM spoke with RS who said that [...] rehab. Await recommendations from PT. Covering pager #[phone]. 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 Factory Laborer Kaitlin Saha, RN Pager #[phone] Payam Rosales - 08/13/2017 2:37 PM EST Warehouse Picker Encounter Note Patient Name: Gregory Hoang : [id number] MR#: [id number] Admit Date: 08/06/2017 1:41 PM Hospital Day 7 days Narrative: Visited to introduce and assess acceptance of Warehouse Picker services. Pt was awake, alert, oriented and in chair and family was there. Assessment:Patient coping positively with stresses of illness/hospitalization at this time. Pt says that he is hoping to get better and his family was there. Pt says that he has family care and supportand taking one day at time. Intervention and Outcome: Provided emotional support and encouraging presence. 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 A letter describing our affiliations was reviewed with them and theywere educated about their right to choose where referrals are placed. Patient requests referral to [facility] [employer]. PHONE: [phone] FAX: [phone]. And Home NPWT (Negative Pressure Wound Therapy) aka wound vac device made available to pt. Serial # confirmed. Reviewed [facility] Proof of Delivery/Assignment of Benefits Statement(POD/AOB) Form w patient or authorized agent signing on behalf of patient. Copy of POD/AOB provided to pt and other copy faxed to [employer] @ fax# [phone] Expected date of discharge: 08/12/2017. 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 Address: [address] [place] [address] [place] [address] (home) Mobile: Telephone Information: Referring Provider: No [...] [facility] ??? PRO CABG, ARTERIAL, SINGLE N/A 07/07/2017 @CABG, USING ARTERIAL GRAFT;SINGLE ARTERIAL GRAFT (WRVU 33.75) performed by Yuan Retana MD at [facility] MAIN OR ??? PRO CABG, ARTERY-VEIN, TWO N/A 07/07/2017 @CABG, TWO VENOUS GRAFTS & ARTERIAL GRAFT (WRVU 7.93) performed by Yuan Retana MD at [facility] MA[facility] OR ??? PRO COLONOSCOPY, REMV LESN, SNARE 01/16/2014 COLONOSCOPY, POLYPECTOMY, REMOVAL LESION BY SNARE performed by Nohemi Jaimes MD at [facility] ENDOSCOPY ??? PRO ENDOSCOPY W/VIDEO-ASST VEIN HARVEST, CABG Right 07/07/2017 ENDOSCOPIC HARVEST VEIN(S) FOR CABG (WRVU 0.31) performed by Yuan Retana MD at [facility] ??? PRO THYROIDECTOMY 03/28/2013 THYROIDECTOMY, TOTAL OR COMPLETE performed by Manny Mcknight MD at 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 Address: [address] [place] [address] [place] [address] (home) Mobile: Telephone Information: Referring Provider: No [...] [facility] ??? PRO CABG, ARTERIAL, SINGLE N/A 07/07/2017 @CABG, USING ARTERIAL GRAFT;SINGLE ARTERIAL GRAFT (WRVU 33.75) performed by Yuan Retana MD at [facility] ??? PRO CABG, ARTERY-VEIN, TWO N/A 07/07/2017 @CABG, TWO VENOUS GRAFTS & ARTERIAL GRAFT (WRVU 7.93) performed by Yuan Retana MD at [facility] OR ??? PRO COLONOSCOPY, REMV LESN, SNARE 01/16/2014 COLONOSCOPY, POLYPECTOMY, REMOVAL LESION BY SNARE performed by Nohemi Jaimes MD at [facility] ENDOSCOPY ??? PRO ENDOSCOPY W/VIDEO-ASST VEIN HARVEST, CABG Right 07/07/2017 ENDOSCOPIC HARVEST VEIN(S) FOR CABG (WRVU 0.31) performed by Yuan Retana MD at [facility] ??? PRO THYROIDECTOMY 03/28/2013 THYROIDECTOMY, TOTAL OR COMPLETE performed by Manny Mcknight MD at 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 Vascular resident crap game box person and will forward result to the team prior to rounds. 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 Patient [...] [facility] ??? PRO CABG, ARTERIAL, SINGLE N/A 07/07/2017 @CABG, USING ARTERIAL GRAFT;SINGLE ARTERIAL GRAFT (WRVU 33.75) performed by Yuan Retana MD at [facility] MA[facility] OR ??? PRO CABG, ARTERY-VEIN, TWO N/A 07/07/2017 @CABG, TWO VENOUS GRAFTS & ARTERIAL GRAFT (WRVU 7.93) performed by Yuan Retana MD at [facility] MAIN OR ??? PRO COLONOSCOPY, REMV LESN, SNARE 01/16/2014 COLONOSCOPY, POLYPECTOMY, REMOVAL LESION BY SNARE performed by Nohemi Jaimes MD at [facility] ENDOSCOPY ??? PRO ENDOSCOPY W/VIDEO-ASST VEIN HARVEST, CABG Right 07/07/2017 ENDOSCOPIC HARVEST VEIN(S) FOR CABG (WRVU 0.31) performed by Yuan Retana MD at [facility] MA[facility] OR ??? PRO THYROIDECTOMY 03/28/2013 THYROIDECTOMY, TOTAL OR COMPLETE performed by Manny Mcknight MD at [facility] MA[facility] OR Functional Status/Social Hx: Quit [...] left blue toes with CTA showing R BIOPHYSICS PROFESSOR pseudoaneurysm (now thrombosed) and occluded ATs bilaterally. [...] 2.5x80 5. Completion RLE angiogram 6. L BIOPHYSICS PROFESSOR angiogram 7. 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 - L BIOPHYSICS PROFESSOR angriogram demonstrated: High femoral bifurcation over the proximal half of the femoral head. L BIOPHYSICS PROFESSOR access in the distal L BIOPHYSICS PROFESSOR. - Closure device: Mynx Technical Procedure: The [...] for a 45cm 5F Destination. V18 and Pickford and QuickCross catheters were used to select [...] 5F. A stationed picture of the L BIOPHYSICS PROFESSOR was performed as the patient was noted to have a very high bifurcation. Access appeared in the distal R BIOPHYSICS PROFESSOR. Closure and sheath removal was performed with [...] PM EST 1440 report called to 5 [place] nurse Tessa AGUSTIN documented in this encounter [...] sit/sit to supine -- Bed Mobility Goal, [place] Level independent -- Bed Mobility Goal, Date [...] days -- Transfer Training Goal, Activity Type rvj-kp-wxivt/zmkym-xa-lrp -- Transfer Train Goal, [place] Level conditional independence -- Transfer Train Goal, [...] call [place] within reach, Hourly rounding by RN/PLUG SAW OPERATOR. Bed alarm / Chair alarm. Patient-specific [...] Operative Note Patient Name: Gregory Hoang : [id number] MR#: [id number] Case Date: 08/09/2017 Surgeon: Surgeon(s) and Role: [...] 2.5x80 5. Completion RLE angiogram 6. L BIOPHYSICS PROFESSOR angiogram 7. Mynx closure Precautions/Restrictions: fall, sternal [...] other (see comments) (or swing bed) Pager: [phone] BASSAM ELIAS, PT 08/14/2017 Inpatient Physical Therapy [...] to Achieve by discharge Gait Training Goal, [place] Level conditional independence;set up required Gait Training [...] 08/14/2017 11:51 AM EST Spoke with Bassam lEias PT who has seen patient and family [...] choices are: 1- [facility] PHONE: [phone] FAX: [phone] 2- [facility] ([facility]) [address] [place] [address] 3- [facility]) [address] [place] [address] I have discussed Medicare/Private Insurance [...] RS/CM on Wednesday to follow-up. Covering pager #[phone] for today. Plan of Care - Henrique [...] with additional findings of pseudoaneurysm on R BIOPHYSICS PROFESSOR and bilateral anterior tibial artery occlusions. Was [...] an outpatient once discharged. Have patient call [phone] to set up an appointment. Follow-up: Dermatology will sign-off for now. Please do not hesitate to contact us if you have any questions orconcerns. Impression and Recommendations discussed with primary team on 08/13/2017. Karo Henderson MD Resident in Dermatology Section of Dermatology, Department of Surgery [facility] Pager [phone] Patient seen and evaluated with staff Manager Knowledge: Halima Cordero MD Section of Dermatology [facility] Level of Resident Supervision: Direct [...] 2.5x80 5. Completion RLE angiogram 6. L BIOPHYSICS PROFESSOR angiogram 7. Mynx closure Active Non-Hospital Problems [...] home with home health ([facility] PT&OT) Pager: [phone] YASIR TELLO OT 08/12/2017 Occupational Therapy Rehabilitation [...] 2.5x80 5. Completion RLE angiogram 6. L BIOPHYSICS PROFESSOR angiogram 7. Mynx closure Past Medical History: [...] with 24/7 assistance and maximal services) Pager: [phone] NICHOLAS MORA, PT 08/12/2017 Physical Therapy Rehabilitation [...] sit/sit to supine -- Bed Mobility Goal, [place] Level independent -- Bed Mobility Goal, Outcome Achieved -- goal ongoing Goal: Gait Training Goal Stand Alone Therapy Goal Outcome: Ongoing (Interventions Implemented as Appropriate) 08/11/17 1310 08/12/17 1510 Gait Training Goal Gait Training Goal, Date Established 08/11/17 -- Gait Training Goal, Time to Achieve 5 - 7 days -- Gait Training Goal, [place] Level conditional independence -- Gait Training Goal, [...] days -- Transfer Training Goal, Activity Type jen-yt-gthmn/looqg-lz-oai -- Transfer Train Goal, [place] Level conditional independence -- Transfer Training Goal, [...] Operative Note Patient Name: Gregory Hoang : [id number] MR#: [id number] Case Date: 08/11/2017 Surgeon: Surgeon(s) and Role: [...] 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 Completion RLE angiogram 6. L BIOPHYSICS PROFESSOR angiogram 7. Mynx closure He is very [...] Anticipated Discharge Disposition: inpatient rehabilitation facility Pager: [phone] LAWRENCE GONZALEZ, PT 08/11/2017 Physical Therapy Rehabilitation [...] to sit/sit to supine Bed Mobility Goal, [place] Level independent Goal: Gait Training Goal Stand Alone Therapy Goal Outcome: Ongoing (Interventions Implemented as Appropriate) 08/11/17 1310 Gait Training Goal Gait Training Goal, Date Established 08/11/17 Gait Training Goal, Time to Achieve 5 - 7 days Gait Training Goal, [place] Level conditional independence Gait Training Goal, Assist [...] 7 days Transfer Training Goal, Activity Type jco-az-mbxtz/tfstn-al-ehx Transfer Train Goal, [place] Level conditional independence Plan of [place] [...] call [place] within reach, Hourly rounding by RN/PLUG SAW OPERATOR. Bed alarm / Chair alarm. ? [...] Care Planning: on file Kisha Hoang [facility] [phone] Current Coping/Education/Information Needs: pt and spouse state [...] Health/Prescription Coverage: Primary Insurance: MEDICARE Secondary Insurance: [employer] [facility] Prescription Coverage: See above Preferred Pharmacy: [facility] Other: N/A Primary Care Provider: Lovely Vicente MD [phone] Patient/Caregiver Goals of Treatment: Patient plans to [...] of care planning. Kaitlin Saha RN Pager: [phone] Plan of Care - Melba Jaramillo RN [...] call [place] within reach, Hourly rounding by RN/PLUG SAW OPERATOR. Bed alarm / Chair alarm. Patient-specific [...] at bedside and MD TEAM Carrying pager [phone] contacted (via Radio page) and notified of [...] Cardiology Zulma Dolan MD [facility] [place], [place] [address] (Wo rk) 05/28/2022 Laboratory Appointment Lab 05/28/2022 Office Visit Cardiology Zulma Dolan MD [facility] [place] [address] Liz Poole PA [facility] [place] [address] 06/10/2022 Office Visit Dermatology Laura Scherer MD [facility] [address] [facility] [place], [place] [address] (Wo rk) documented as of [...] Glucose 160 65 - 199 [facility] mg/dL [facility] Comment: Supplemental ranges: <140 mg/dL before meals <180 mg/dL all other times of the day Specimen Anatomical Collection Method Collection Time Receive d Time (Source) Location / / Volume Laterality Blood specimen 08/16/2017 7:28 AM 018 7:28 (specimen) EST AM EST Yonathan Smith MD POINT OF CARE TEST ORDERABLE S Performing Organization Address City/State/[place] [address] (ABNORMAL) Differential, Automated (08/16/2017 5:08 AM EST) [facility] Method Time Signature Neutrophils % 73.9 % [facility] Neutr Abs (ANC) 5.37 1.70 - [facility] 6.10 [facility] x10(3)/[facility] LABORATORY Lymphocytes % 10.1 % [facility] Lymphocytes Abs 0.7 (L) 0.9 - 3.2 [facility] x10(3)/[facility] LABORATORY Monocytes % 10.1 % [facility] Monocyte Abs 0.7 0.3 - 0.9 [facility] x10(3)/[facility] LABORATORY Eosinophils % 5.1 % [facility] Eosinophils Abs 0.4 0.0 - 0.4 [facility] x10(3)/[facility] LABORATORY Basophils % 0.4 % [facility] Basophils Abs 0.0 0.0 - 0.1 [facility] x10(3)/[facility] LABORATORY Immature Gran % 0.40 % [facility] [...] Gran Abs 0.03 0.00 - 0.04 x10(3)/[facility] Y [facility] LABORATORY Specimen Anatomical Collection Method Collection Time Receive d Time (Source) Location / / Volume Laterality Blood specimen 08/16/2017 5:08 AM 018 5:20 (specimen) EST AM EST Resulting Agency Comment Spec In Lab Yonathan Smith MD HEMATOLOGY ORDERABLES Performing Organization Address City/State/[place] [address] (ABNORMAL) Hemogram (08/16/2017 5:08 AM EST) Analysis Performed At Patho logist Time Signature WBC 7.3 4.0 - 9.5 [facility] x10(3)/[facility] LABORATORY RBC 3.36 (L) 4.58 - [place] SU 5.54 [facility] x10(6)/[facility] LABORATORY Hemoglobin 9.7 (L) 13.7 - [facility] 16.5 gm/dL [facility] Hematocrit 30.3 (L) 40.5 - [facility] 48.5 % [facility] MCV 90.2 82.9 - [facility] 93.[address] [facility] LABORATORY MCH 28.9 27.5 - [facility] 32.1 pg [facility] MCHC 32.0 32.0 - [facility] 35.7 gm/dL [facility] Platelets 282 145 - 357 [facility] x10(3)/[facility] LABORATORY RDWSD 53.9 (H) 36.0 - [place] [facility] 45.[address] [facility] LABORATORY RDWCV 16.5 (H) 11.4 - [facility] SU 13.8 % [facility] MPV 9.0 7.6 - 12.9 [facility] LABORATORY nRBC % Auto 0.0 % [facility] nRBC Abs Auto 0.000 0.000 - [facility] SU 0.000 [facility] x10(3)/[facility] LABORATORY Specimen Anatomical Collection Method Collection Time Receive d Time (Source) Location / / Volume Laterality Blood specimen 08/16/2017 5:08 AM 018 5:20 (specimen) EST AM EST Resulting Agency Comment Spec In Lab Yonathan Smith MD HEMATOLOGY ORDERABLES Performing Organization Address City/State/[place] [address] (ABNORMAL) Basic Metabolic Panel (non-fasting) (08/16/2017 5:08 AM EST) P athologist Signature Glucose Lvl 141 65 - 199 [facility] mg/dL [facility] Comment: Diabetes: >=200 mg/dL plus symp toms BUN 29 (H) 10 - 20 mg/dL [facility] Creatinine 1.25 0.80 - 1.50 mg/dL [facility] [...] Calcium 8.7 8.5 - 10.5 mg/dL [facility] Estimated GFR 57 (L) >=60 [facility] Comment: The reported eGFR should be multiplied b y 1.2 for patients. The MDRD is not an appropriate measure o f renal function for patients with body mass extremes or in patients with acute kidney failure. http://Eventfinda/DHnkdep http://Eventfinda/DHMCnkf Specimen Anatomical Collection Method Collection Time Receive d Time (Source) Location / / Volume Laterality Blood specimen 08/16/2017 5:08 AM 018 5:20 (specimen) EST AM EST Resulting Agency Comment Spec In Lab Yonathan Smith MD CHEMISTRY ORDERABLES Performing Organization Address City/State/[place] [address] (ABNORMAL) Prothrombin Time (08/16/2017 [...] Address City/State/ZIP Code Phon e Number [address] POCT Glucose (08/16/2017 4:09 AM EST) athologist Signature POC Glucose 147 65 - 199 [facility] mg/dL [facility] Comment: Supplemental ranges: <140 mg/dL before meals <180 mg/dL all other times of the day Specimen Anatomical Collection Method Collection Time Receive d Time (Source) Location / / Volume Laterality Blood specimen 08/16/2017 4:09 AM 018 4:09 (specimen) EST AM EST Yonathan Smith MD POINT OF CARE TEST ORDERABLE S Performing Organization Address City/State/[place] [address] POCT Glucose (08/15/2017 11:56 PM EST) athologist Signature POC Glucose 176 65 - 199 [facility] SU mg/dL [facility] Comment: Supplemental ranges: <140 mg/dL before meals <180 mg/dL all other times of the day Specimen Anatomical Collection Method Collection Time Receive d Time (Source) Location / / Volume Laterality Blood specimen 08/15/2017 11:56 8 (specimen) PM EST 11:56 PM EST Yonathan Smith MD POINT OF CARE TEST ORDERABLE S Performing Organization Address City/State/[place] [address] POCT Glucose (08/15/2017 8:05 PM EST) athologist Signature POC Glucose 136 65 - 199 [place] mg/dL [facility] Comment: Supplemental ranges: <140 mg/dL before meals <180 mg/dL all other times of the day Specimen Anatomical Collection Method Collection Time Receive d Time (Source) Location / / Volume Laterality Blood specimen 08/15/2017 8:05 PM 018 8:05 (specimen) EST PM EST Yonathan Smith MD POINT OF CARE TEST ORDERABLE S Performing Organization Address City/State/[place] [address] (ABNORMAL) POCT Glucose (08/15/2017 4:50 PM EST) athologist Signature POC Glucose 232 (H) 65 - 199 [facility] SU mg/dL [facility] Comment: Supplemental ranges: <140 mg/dL before meals <180 mg/dL all other times of the day Specimen Anatomical Collection Method Collection Time Receive d Time (Source) Location / / Volume Laterality Blood specimen 08/15/2017 4:50 PM 018 4:50 (specimen) EST PM EST Yonathan Smith MD POINT OF CARE TEST ORDERABLE S Performing Organization Address City/State/[place] [address] POCT Glucose (08/15/2017 12:04 PM EST) athologist Signature POC Glucose 135 65 - 199 [facility] SU mg/dL [facility] Comment: Supplemental ranges: <140 mg/dL before meals <180 mg/dL all other times of the day Specimen Anatomical Collection Method Collection Time Receive d Time (Source) Location / / Volume Laterality Blood specimen 08/15/2017 12:04 8 (specimen) PM EST 12:04 PM EST Yonathan Smith MD POINT OF CARE TEST ORDERABLE S Performing Organization Address City/State/[place] [address] POCT Glucose (08/15/2017 7:36 AM EST) P athologist Signature POC Glucose 124 65 - 199 [facility] mg/dL [facility] Comment: Supplemental ranges: <140 mg/dL before meals <180 mg/dL all other times of the day Specimen Anatomical Collection Method Collection Time Receive d Time (Source) Location / / Volume Laterality Blood specimen 08/15/2017 7:36 AM 018 7:36 (specimen) EST AM EST Yonathan Smith MD POINT OF CARE TEST ORDERABLE S Performing Organization Address City/State/[place] [address] (ABNORMAL) Differential, Automated (08/15/2017 6:22 AM EST) Patholo gist Method Time Signature Neutrophils % 76.1 % [facility] LABORATORY Neutr Abs (ANC) 6.62 (H) 1.70 - [facility] 6.10 [facility] x10(3)/[facility] L LABORATORY Lymphocytes % 9.3 % [facility] LABORATORY Lymphocytes Abs 0.8 (L) 0.9 - 3.2 [facility] x10(3)/[facility] LABORATORY Monocytes % 9.4 % [facility]ORATORY Monocyte Abs 0.8 0.3 - 0.9 [facility] x10(3)/[facility] LABORATORY Eosinophils % 4.0 % [facility] LABORATORY Eosinophils Abs 0.4 0.0 - 0.4 [facility] x10(3)/[facility] LABORATORY Basophils % 0.6 % [facility] LABORATORY Basophils Abs 0.0 0.0 - 0.1 [facility] x10(3)/[facility] LABORATORY Immature Gran % 0.60 [...] Gran Abs 0.05 (H) 0.00 - 0.04 x10(3)/[facility] LABORATORY Specimen Anatomical Collection Method Collection Time Receive d Time (Source) Location / / Volume Laterality Blood specimen 08/15/2017 6:22 AM 018 6:33 (specimen) EST AM EST Resulting Agency Comment Spec In Lab Yonathan Smith MD HEMATOLOGY ORDERABLES Performing Organization Address City/State/[place] [address] (ABNORMAL) Hemogram (08/15/2017 6:22 AM EST) Analysis Performed At Patho logist Time Signature WBC 8.7 4.0 - 9.5 [facility] x10(3)/[facility] LABORATORY RBC 3.21 (L) 4.58 - [facility] x10(6)/[facility] LABORATORY Hemoglobin 9.1 (L) 13.7 - [facility] 16.5 gm/dL [facility] Hematocrit 29.0 (L) 40.5 - [facility] 48.5 % [facility]ORY MCV 90.3 82.9 - [facility] 93.[address] [facility] LABORATORY MCH 28.3 27.5 - [facility] 32.1 pg [facility]ORY MCHC 31.4 (L) 32.0 - [facility] g[facility]/dL [facility] Platelets 254 145 - 357 [facility] x10(3)/[facility] LABORATORY RDWSD 53.9 (H) 36.0 - [facility] SU 45.[address] [facility] LABORATORY RDWCV 16.3 (H) 11.4 - [facility] SU 13.8 % [facility] LABORATORY MPV 8.8 7.6 - 12.9 [facility] LABORATORY nRBC % Auto 0.0 % [facility] LABORATORY nRBC Abs Auto 0.000 0.000 - [facility] SU 0.000 [facility] x10(3)/[facility] LABORATORY Specimen Anatomical Collection Method Collection Time Receive d Time (Source) Location / / Volume Laterality Blood specimen 08/15/2017 6:22 AM 018 6:33 (specimen) EST AM EST Resulting Agency Comment Spec In Lab Yonathan Smith MD HEMATOLOGY ORDERABLES Performing Organization Address City/[facility]/[place] [address] (ABNORMAL) Basic Metabolic Panel (non-fasting) (08/15/2017 6:22 AM EST) athologist Signature Glucose Lvl 118 65 - 199 [facility] mg/dL [facility] Comment: Diabetes: >=200 mg/dL plus symp toms BUN 27 (H) 10 - 20 mg/dL [facility] LABORATORY Creatinine 1.12 0.80 - 1.50 mg/dL [facility] LABORATORY Sodium 138 135 - 145 mmol/L [facility] Calcium 8.8 8.5 - 10.5 mg/dL [facility] LABORATORY Estimated GFR >60 >=60 [facility] LABORATORY Comment: The reported eGFR should be multiplied b y 1.2 for patients. The MDRD is not an appropriate measure o f renal function for patients with body mass extremes or in patients with acute kidney failure. [email or web address]/DHnkdep [email or web address] Specimen Anatomical Collection Method Collection Time Receive d Time (Source) Location / / Volume Laterality Blood specimen 08/15/2017 6:22 AM 018 6:33 (specimen) EST AM EST Resulting Agency Comment Spec In Lab Yonathan Smith MD CHEMISTRY ORDERABLES Performing Organization Address City/[facility]/[place] [address] (ABNORMAL) Prothrombin Time (08/15/2017 [...] Address City/State/[place] [address] POCT Glucose (08/15/2017 4:33 AM EST) athologist Signature POC Glucose 164 65 - 199 [facility] Comment: Supplemental ranges: <140 mg/dL before meals <180 mg/dL all other times of the day Specimen Anatomical Collection Method Collection Time Receive d Time (Source) Location / / Volume Laterality Blood specimen 08/15/2017 4:33 AM 018 4:33 (specimen) EST AM EST Yonathan Smith MD POINT OF CARE TEST ORDERABLE S Performing Organization Address City/State/[place] [address] POCT Glucose (08/15/2017 12:12 AM EST) athologist Signature POC Glucose 89 65 - 199 [facility]dL [facility] Comment: Supplemental ranges: <140 mg/dL before meals <180 mg/dL all other times of the day Specimen Anatomical Collection Method Collection Time Receive d Time (Source) Location / / Volume Laterality Blood specimen 08/15/2017 12:12 8 (specimen) AM EST 12:12 AM EST Yonathan Smith MD POINT OF CARE TEST ORDERABLE S Performing Organization Address City/State/[place] [address] (ABNORMAL) POCT Glucose (08/14/2017 8:07 PM EST) athologist Signature POC Glucose 204 (H) 65 - 199 [place] mg/dL [facility] Comment: Supplemental ranges: <140 mg/dL before meals <180 mg/dL all other times of the day Specimen Anatomical Collection Method Collection Time Receive d Time (Source) Location / / Volume Laterality Blood specimen 08/14/2017 8:07 PM 018 8:07 (specimen) EST PM EST Yonathan Smith MD POINT OF CARE TEST ORDERABLE S Performing Organization Address City/State/[place] [address] POCT Glucose (08/14/2017 5:11 PM EST) athologist Signature POC Glucose 174 65 - 199 [place] mg/dL [facility] Comment: Supplemental ranges: <140 mg/dL before meals <180 mg/dL all other times of the day Specimen Anatomical Collection Method Collection Time Receive d Time (Source) Location / / Volume Laterality Blood specimen 08/14/2017 5:11 PM 018 5:11 (specimen) EST PM EST Yonathan Smith MD POINT OF CARE TEST ORDERABLE S Performing Organization Address City/State/[place] [address] POCT Glucose (08/14/2017 12:10 PM EST) athologist Signature POC Glucose 141 65 - 199 [place] mg/dL [facility] Comment: Supplemental ranges: <140 mg/dL before meals <180 mg/dL all other times of the day Specimen Anatomical Collection Method Collection Time Receive d Time (Source) Location / / Volume Laterality Blood specimen 08/14/2017 12:10 8 (specimen) PM EST 12:10 PM EST Yonathan Smith MD POINT OF CARE TEST ORDERABLE S Performing Organization Address City/State/ZIP Code Phon e Number [address] POCT Glucose (08/14/2017 8:07 AM EST) P athologist Signature POC Glucose 158 65 - 199 [facility] mg/dL [facility] Comment: Supplemental ranges: <140 mg/dL before meals <180 mg/dL all other times of the day Specimen Anatomical Collection Method Collection Time Receive d Time (Source) Location / / Volume Laterality Blood specimen 08/14/2017 8:07 AM 018 8:07 (specimen) EST AM EST Yonathan Smith MD POINT OF CARE TEST ORDERABLE S Performing Organization Address City/State/[place] [address] (ABNORMAL) Differential, Automated (08/14/2017 4:52 AM EST) Patholo gist Method Time Signature Neutrophils % 78.6 % [facility] LABORATORY Neutr Abs (ANC) 7.70 (H) 1.70 - [facility] 6.10 [facility] x10(3)/[facility] L LABORATORY Lymphocytes % 7.8 % [facility] LABORATORY Lymphocytes Abs 0.8 (L) 0.9 - 3.2 [facility] x10(3)/[facility] LABORATORY Monocytes % 8.8 % [facility] LABORATORY Monocyte Abs 0.9 0.3 - 0.9 [facility] x10(3)/[facility] LABORATORY Eosinophils % 4.0 % [facility] LABORATORY Eosinophils Abs 0.4 0.0 - 0.4 [facility] x10(3)/[facility] LABORATORY Basophils % 0.5 % [facility] LABORATORY Basophils Abs 0.0 0.0 - 0.1 [facility] x10(3)/[facility] LABORATORY Immature Gran % 0.30 [...] Gran Abs 0.03 0.00 - 0.04 x10(3)/[facility] LABORATORY Specimen Anatomical Collection Method Collection Time Receive d Time (Source) Location / / Volume Laterality Blood specimen 08/14/2017 4:52 AM 018 5:08 (specimen) EST AM EST Resulting Agency Comment Spec In Lab Yonahtan Smith MD HEMATOLOGY ORDERABLES Performing Organization Address City/State/[place] [address] (ABNORMAL) Hemogram (08/14/2017 4:52 AM EST) Analysis Performed At Patho logist Time Signature WBC 9.8 (H) 4.0 - 9.5 [facility] x10(3)/[facility] LABORATORY RBC 3.32 (L) 4.58 - [facility] x10(6)/[facility] LABORATORY Hemoglobin 9.5 (L) 13.7 - [facility] 16.5 gm/dL [facility] LABORATORY Hematocrit 30.3 (L) 40.5 - [facility] SU 48.5 % [facility] LABORATORY MCV 91.3 82.9 - [facility] SU 93.[address] [facility] LABORATORY MCH 28.6 27.5 - [place] 32.1 pg [facility] LABORATORY MCHC 31.4 (L) 32.0 - [facility] SU 35.7 gm/dL [facility]ATORY Platelets 263 145 - 357 [facility] LABORATORY RDWSD 54.8 (H) 36.0 - [facility] SU 45.0 [facility] RDWCV 16.5 (H) 11.4 - [facility] SU 13.8 % [facility] LABORATORY MPV 9.1 7.6 - 12.9 [facility] LABORATORY nRBC % Auto 0.0 % [facility] LABORATORY nRBC Abs Auto 0.000 0.000 - [facility] 0.000 [facility] x10(3)/[facility] LABORATORY Specimen Anatomical Collection Method Collection Time Receive d Time (Source) Location / / Volume Laterality Blood specimen 08/14/2017 4:52 AM 018 5:08 (specimen) EST AM EST Resulting Agency Comment Spec In Lab Yonathan Smith MD HEMATOLOGY ORDERABLES Performing Organization Address City/[facility]/[place] [address] (ABNORMAL) Prothrombin Time (08/14/2017 [...] Organization Address City/State/[place] [address] (ABNORMAL) Basic Metabolic Panel (non-fasting) (08/14/2017 4:52 AM EST) athologist Signature Glucose Lvl 135 65 - 199 [facility] mg/dL [facility] Comment: Diabetes: >=200 mg/dL plus symp toms BUN 25 (H) 10 - 20 mg/dL [facility] LABORATORY Creatinine 1.36 0.80 - 1.50 mg/dL [facility] [...] [facility] LAB[facility]ORY Estimated GFR 52 (L) >=60 [facility] LABORATORY Comment: The reported eGFR should be multiplied b y 1.2 for patients. The MDRD is not an appropriate measure o f renal function for patients with body mass extremes or in patients with acute kidney failure. [email or web address]/DHnkdep [email or web address]://Eventfinda/DHMCnkf Specimen Anatomical Collection Method Collection Time Receive d Time (Source) Location / / Volume Laterality Blood specimen 08/14/2017 4:52 AM 018 5:08 (specimen) EST AM EST Resulting Agency Comment Spec In Lab Yonathan Smith MD CHEMISTRY ORDERABLES Performing Organization Address City/State/[place] [address] POCT Glucose (08/14/2017 3:56 AM EST) P athologist Signature POC Glucose 135 65 - 199 [facility] mg/dL [facility] Comment: Supplemental ranges: <140 mg/dL before meals <180 mg/dL all other times of the day Specimen Anatomical Collection Method Collection Time Receive d Time (Source) Location / / Volume Laterality Blood specimen 08/14/2017 3:56 AM 018 3:56 (specimen) EST AM EST Yonathan Smith MD POINT OF CARE TEST ORDERABLE S Performing Organization Address City/State/ZIP [place] [address] POCT Glucose (08/13/2017 11:13 PM EST) athologist Signature POC Glucose 118 65 - 199 [place] mg/dL [facility] Comment: Supplemental ranges: <140 mg/dL before meals <180 mg/dL all other times of the day Specimen Anatomical Collection Method Collection Time Receive d Time (Source) Location / / Volume Laterality Blood specimen 08/13/2017 11:13 8 (specimen) PM EST 11:13 PM EST Yonathan Smith MD POINT OF CARE TEST ORDERABLE S Performing Organization Address City/[facility]/ZIP [place] [address] (ABNORMAL) POCT Glucose (08/13/2017 8:08 PM EST) athologist Signature POC Glucose 204 (H) 65 - 199 [place] mg/dL [facility] Comment: Supplemental ranges: <140 mg/dL before meals <180 mg/dL all other times of the day Specimen Anatomical Collection Method Collection Time Receive d Time (Source) Location / / Volume Laterality Blood specimen 08/13/2017 8:08 PM 018 8:08 (specimen) EST PM EST Yonathan Smith MD POINT OF CARE TEST ORDERABLE S Performing Organization Address City/[facility]/ZIP Code [place] [address] POCT Glucose (08/13/2017 4:02 PM EST) athologist Signature POC Glucose 145 65 - 199 [place] mg/dL [facility] Comment: Supplemental ranges: <140 mg/dL before meals <180 mg/dL all other times of the day Specimen Anatomical Collection Method Collection Time Receive d Time (Source) Location / / Volume Laterality Blood specimen 08/13/2017 4:02 PM 018 4:02 (specimen) EST PM EST Yonathan Smith MD POINT OF CARE TEST ORDERABLE S Performing Organization Address City/State/[place] [address] POCT Glucose (08/13/2017 11:31 AM EST) P athologist Signature POC Glucose 179 65 - 199 [facility] Comment: Supplemental ranges: <140 mg/dL before meals <180 mg/dL all other times of the day Specimen Anatomical Collection Method Collection Time Receive d Time (Source) Location / / Volume Laterality Blood specimen 08/13/2017 11:31 8 (specimen) AM EST 11:31 AM EST Yonathan Smith MD POINT OF CARE TEST ORDERABLE S Performing Organization Address City/[facility]/[place] [address] (ABNORMAL) POCT Glucose (08/13/2017 10:16 AM EST) athologist Signature POC Glucose 211 (H) 65 - 199 [facility]dL [facility] Comment: Supplemental ranges: <140 mg/dL before meals <180 mg/dL all other times of the day Specimen Anatomical Collection Method Collection Time Receive d Time (Source) Location / / Volume Laterality Blood specimen 08/13/2017 10:16 8 (specimen) AM EST 10:16 AM EST Yonathan Smith MD POINT OF CARE TEST ORDERABLE S Performing Organization Address City/[facility]/ZIP Code Phon e Number [address] JULIAN, legs, multiple levels (08/13/2017 7:42 AM EST) Component Value Ref Test Analysis Performed At Patholo gist Range Method Time Signature VB Text Department: Vascular Surgery Lab VASCUBASE Report Patient: [id number] (GREGORY HOANG) CPT: 66322 ICD10: I99.8 Referring Physician: YONATHAN SMITH ?? Indications: s/p R 1,2,3 toe amps with red left foot, need n ew baseline Diabetes mellitus: yes ICD10 Diagnosis Code: I99.8 Findings: Right ?Pressure (mm Hg) ?? JULIAN ??Waveform ?TBI ?? Brachial Artery ?138 ? Dorsalis Pedis (Ankle) Arter y ?132 ? 0.94 ??[place]- Biphasic ? Posterior Tibial (Ankle) Art anila ??154 ? 1.10 ??[place]-Biphasic ? Fourth Toe ? 67 ? 0.48 [...] 156 65 - 199 [place] mg/dL [facility] Comment: Supplemental ranges: <140 mg/dL before meals <180 mg/dL all other times of the day Specimen Anatomical Collection Method Collection Time Receive d Time (Source) Location / / Volume Laterality Blood specimen 08/13/2017 7:33 AM 018 7:33 (specimen) EST AM EST Yonathan Smith MD POINT OF CARE TEST ORDERABLE S Performing Organization Address City/State/[place] [address] (ABNORMAL) Differential, Automated (08/13/2017 5:33 AM EST) [facility] Method Time Signature Neutrophils % 77.8 % [facility] LABORATORY Neutr Abs (ANC) 7.83 (H) 1.70 - [facility] 6.10 [facility] x10(3)/[facility] L LABORATORY Lymphocytes % 8.4 % [facility] LABORATORY Lymphocytes Abs 0.8 (L) 0.9 - 3.2 [facility] x10(3)/[facility] LABORATORY Monocytes % 8.3 % [facility] LABORATORY Monocyte Abs 0.8 0.3 - 0.9 [facility] x10(3)/[facility] LABORATORY Eosinophils % 4.6 % [facility] LABORATORY Eosinophils Abs 0.5 (H) 0.0 - 0.4 [facility] x10(3)/[facility] LABORATORY Basophils % 0.5 % [facility] LABORATORY Basophils Abs 0.0 0.0 - 0.1 [facility] x10(3)/[facility] LABORATORY Immature Gran % 0.40 [...] Address City/State/ZIP Code Phon e Number [address] (ABNORMAL) Hemogram (08/13/2017 5:33 AM EST) Analysis Performed At Patho logist Time Signature WBC 10.1 (H) 4.0 - 9.5 [facility] x10(3)/[facility] LABORATORY RBC 3.21 (L) 4.58 - [facility] x10(6)/[facility] LABORATORY Hemoglobin 9.2 (L) 13.7 - [facility] 16.5 gm/dL [facility]ATORY Hematocrit 29.6 (L) 40.5 - [facility] 48.5 % [facility]ATORY MCV 92.2 82.9 - [facility] 93.[address] [facility] LABORATORY MCH 28.7 27.5 - [facility] 32.1 pg [facility]ATORY MCHC 31.1 (L) 32.0 - [facility] gm/dL [facility]ATORY Platelets 263 145 - 357 [facility] x10(3)/[facility] LABORATORY RDWSD 54.8 (H) 36.0 - [facility] [facility] LABORATORY RDWCV 16.4 (H) 11.4 - [facility] 13.8 % [facility] LABORATORY MPV 9.2 7.6 - 12.9 [facility] LABORATORY nRBC % Auto 0.0 % [facility] LABORATORY nRBC Abs Auto 0.000 0.000 - [facility] 0.000 [facility] x10(3)/[facility] LABORATORY Specimen Anatomical Collection Method Collection Time Receive d Time (Source) Location / / Volume Laterality Blood specimen 08/13/2017 5:33 AM 018 6:04 (specimen) EST AM EST Resulting Agency Comment Spec In Lab Yonathan Smith MD HEMATOLOGY ORDERABLES Performing Organization Address City/State/[place] [address] (ABNORMAL) Prothrombin Time (08/13/2017 [...] City/State/ZIP Code Phon e Number [place] [id number] (ABNORMAL) Basic Metabolic Panel (non-fasting) (08/13/2017 5:33 AM EST) athologist Signature Glucose Lvl 126 65 - 199 [facility] mg/dL [facility] LABORATORY Comment: Diabetes: >=200 mg/dL plus symp toms BUN 18 10 - 20 mg/dL [facility] LABORATORY Creatinine 1.16 0.80 - 1.50 mg/dL [facility] [...] 7.9 (L) 8.5 - 10.5 mg/dL [facility] LABORATORY Estimated GFR >60 >=60 [facility] LABORATORY Comment: The reported eGFR should be multiplied b y 1.2 for patients. The MDRD is not an appropriate measure o f renal function for patients with body mass extremes or in patients with acute kidney failure. http://Eventfinda/DHnkdep http://Eventfinda/DHMCnkf Specimen Anatomical Collection Method Collection Time Receive d Time (Source) Location / / Volume Laterality Blood specimen 08/13/2017 5:33 AM 018 6:04 (specimen) EST AM EST Resulting Agency Comment Spec In Lab Yonathan Smith MD CHEMISTRY ORDERABLES Performing Organization Address City/[facility]/ZIP [facility] Phon e Number [address] POCT Glucose (08/13/2017 4:29 AM EST) athologist Signature POC Glucose 111 65 - 199 [facility] Comment: Supplemental ranges: <140 mg/dL before meals <180 mg/dL all other times of the day Specimen Anatomical Collection Method Collection Time Receive d Time (Source) Location / / Volume Laterality Blood specimen 08/13/2017 4:29 AM 018 4:29 (specimen) EST AM EST Yonathan Smith MD POINT OF CARE TEST ORDERABLE S Performing Organization Address City/[facility]/ZIP Code Phon e Number [address] POCT Glucose (08/12/2017 11:28 PM EST) athologist Signature POC Glucose 164 65 - 199 [facility] mg/dL [facility] Comment: Supplemental ranges: <140 mg/dL before meals <180 mg/dL all other times of the day Specimen Anatomical Collection Method Collection Time Receive d Time (Source) Location / / Volume Laterality Blood specimen 08/12/2017 11:28 8 (specimen) PM EST 11:28 PM EST Yonathan Smith MD POINT OF CARE TEST ORDERABLE S Performing Organization Address City/[facility]/[place] [address] (ABNORMAL) POCT Glucose (08/12/2017 7:40 PM EST) athologist Signature POC Glucose 209 (H) 65 - 199 [facility] SU mg/dL [facility] Comment: Supplemental ranges: <140 mg/dL before meals <180 mg/dL all other times of the day Specimen Anatomical Collection Method Collection Time Receive d Time (Source) Location / / Volume Laterality Blood specimen 08/12/2017 7:40 PM 018 7:40 (specimen) EST PM EST Yonathan Smith MD POINT OF CARE TEST ORDERABLE S Performing Organization Address City/State/ZIP Code Phon e Number [address] POCT Glucose (08/12/2017 4:24 PM EST) athologist Signature POC Glucose 161 65 - 199 [facility] mg/dL [facility] Comment: Supplemental ranges: <140 mg/dL before meals <180 mg/dL all other times of the day Specimen Anatomical Collection Method Collection Time Receive d Time (Source) Location / / Volume Laterality Blood specimen 08/12/2017 4:24 PM 018 4:24 (specimen) EST PM EST Yonathan Smith MD POINT OF CARE TEST ORDERABLE S Performing Organization Address City/State/[place] [address] POCT Glucose (08/12/2017 12:00 PM EST) athologist Signature POC Glucose 167 65 - 199 [place] mg/dL [facility] Comment: Supplemental ranges: <140 mg/dL before meals <180 mg/dL all other times of the day Specimen Anatomical Collection Method Collection Time Receive d Time (Source) Location / / Volume Laterality Blood specimen 08/12/2017 12:00 8 (specimen) PM EST 12:00 PM EST Yonathan Smith MD POINT OF CARE TEST ORDERABLE S Performing Organization Address City/State/[place] [address] POCT Glucose (08/12/2017 7:25 AM EST) P athologist Signature POC Glucose 152 65 - 199 [facility] mg/dL [facility] Comment: Supplemental ranges: <140 mg/dL before meals <180 mg/dL all other times of the day Specimen Anatomical Collection Method Collection Time Receive d Time (Source) Location / / Volume Laterality Blood specimen 08/12/2017 7:25 AM 018 7:25 (specimen) EST AM EST Yonathan Smith MD POINT OF CARE TEST ORDERABLE S Performing Organization Address City/State/[place] [address] (ABNORMAL) Differential, Automated (08/12/2017 6:29 AM EST) Patholo gist Method Time Signature Neutrophils % 78.7 % [facility] Neutr Abs (ANC) 7.94 (H) 1.70 - [facility] 6.10 [facility] x10(3)/[facility] LABORATORY Lymphocytes % 8.8 % [facility] Lymphocytes Abs 0.9 0.9 - 3.2 [facility] x10(3)/[facility] LABORATORY Monocytes % 7.8 % [facility] Monocyte Abs 0.8 0.3 - 0.9 [facility] x10(3)/[facility] LABORATORY Eosinophils % 3.9 % [facility] Eosinophils Abs 0.4 0.0 - 0.4 [facility] x10(3)/[facility] LABORATORY Basophils % 0.3 % [facility] Basophils Abs 0.0 0.0 - 0.1 [facility] x10(3)/[facility] LABORATORY Immature Gran % 0.50 [...] Gran Abs 0.05 (H) 0.00 - 0.04 x10(3)/[facility] LABORATORY Specimen Anatomical Collection Method Collection Time Receive d Time (Source) Location / / Volume Laterality Blood specimen 08/12/2017 6:29 AM 018 6:38 (specimen) EST AM EST Resulting Agency Comment Spec In Lab Yonathan Smith MD HEMATOLOGY ORDERABLES Performing Organization Address City/State/[place] [address] (ABNORMAL) Hemogram (08/12/2017 6:29 AM EST) Analysis Performed At Patho logist Time Signature WBC 10.1 (H) 4.0 - 9.5 [facility] x10(3)/[facility] LABORATORY RBC 3.02 (L) 4.58 - [facility] x10(6)/[facility] LABORATORY Hemoglobin 8.7 (L) 13.7 - [facility] 16.5 gm/dL [facility] Hematocrit 28.1 (L) 40.5 - [facility] 48.5 % [facility] MCV 93.0 82.9 - [facility] 93.[address] [facility] LABORATORY MCH 28.8 27.5 - [facility] 32.1 pg [facility] MCHC 31.0 (L) 32.0 - [facility] 35.7 gm/dL [facility] Platelets 223 145 - 357 [facility] x10(3)/[facility] LABORATORY RDWSD 56.1 (H) 36.0 - [facility] [facility] LABORATORY RDWCV 16.4 (H) 11.4 - [facility] SU 13.8 % [facility] MPV 9.0 7.6 - 12.9 [facility] LABORATORY nRBC % Auto 0.0 % [facility] nRBC Abs Auto 0.000 0.000 - [facility] SU 0.000 [facility] x10(3)/[facility] LABORATORY Specimen Anatomical Collection Method Collection Time Receive d Time (Source) Location / / Volume Laterality Blood specimen 08/12/2017 6:29 AM 018 6:38 (specimen) EST AM EST Resulting Agency Comment Spec In Lab Yonathan Smith MD HEMATOLOGY ORDERABLES Performing Organization Address City/[facility]/[place] [address] (ABNORMAL) Prothrombin Time (08/12/2017 [...] City/[facility]/[place] [address] (ABNORMAL) Basic Metabolic Panel (non-fasting) (08/12/2017 6:29 AM EST) athologist Signature Glucose Lvl 151 65 - 199 [facility] mg/dL [facility] Comment: Diabetes: >=200 mg/dL plus symp toms BUN 18 10 - 20 mg/dL [facility] Creatinine 1.11 0.80 - 1.50 mg/dL [facility] Sodium 138 135 - 145 mmol/L [facility] 7.9 (L) 8.5 - 10.5 mg/dL [facility] Estimated GFR >60 >=60 [facility] Comment: The reported eGFR should be multiplied b y 1.2 for patients. The MDRD is not an appropriate measure o f renal function for patients with body mass extremes or in patients with acute kidney failure. http://Eventfinda/DHnkdep http://Eventfinda/DHMCnkf Specimen Anatomical Collection Method Collection Time Receive d Time (Source) Location / / Volume Laterality Blood specimen 08/12/2017 6:29 AM 018 6:38 (specimen) EST AM EST Resulting Agency Comment Spec In Lab Yonathan Smith MD CHEMISTRY ORDERABLES Performing Organization Address City/[facility]/ZIP Code Phon e Number [address] POCT Glucose (08/12/2017 4:08 AM EST) athologist Signature POC Glucose 181 65 - 199 [facility] Comment: Supplemental ranges: <140 mg/dL before meals <180 mg/dL all other times of the day Specimen Anatomical Collection Method Collection Time Receive d Time (Source) Location / / Volume Laterality Blood specimen 08/12/2017 4:08 AM 018 4:08 (specimen) EST AM EST Yonathan Smith MD POINT OF CARE TEST ORDERABLE S Performing Organization Address City/[facility]/[place] [address] (ABNORMAL) POCT Glucose (08/12/2017 12:17 AM EST) athologist Signature POC Glucose 221 (H) 65 - 199 [facility] Comment: Supplemental ranges: <140 mg/dL before meals <180 mg/dL all other times of the day Specimen Anatomical Collection Method Collection Time Receive d Time (Source) Location / / Volume Laterality Blood specimen 08/12/2017 12:17 8 (specimen) AM EST 12:17 AM EST Yonathan Smith MD POINT OF CARE TEST ORDERABLE S Performing Organization Address City/State/[place] [address] (ABNORMAL) POCT Glucose (08/11/2017 8:52 PM EST) athologist Signature POC Glucose 221 (H) 65 - 199 [place] [facility] mg/dL [facility] Comment: Supplemental ranges: <140 mg/dL before meals <180 mg/dL all other times of the day Specimen Anatomical Collection Method Collection Time Receive d Time (Source) Location / / Volume Laterality Blood specimen 08/11/2017 8:52 PM 018 8:52 (specimen) EST PM EST Yonathan Smith MD POINT OF CARE TEST ORDERABLE S Performing Organization Address City/[facility]/[place] [address] POCT Glucose (08/11/2017 5:59 PM EST) athologist Signature POC Glucose 169 65 - 199 [place] [facility] mg/dL [facility] Comment: Supplemental ranges: <140 mg/dL before meals <180 mg/dL all other times of the day Specimen Anatomical Collection Method Collection Time Receive d Time (Source) Location / / Volume Laterality Blood specimen 08/11/2017 5:59 PM 018 5:59 (specimen) EST PM EST Yonathan Smith MD POINT OF CARE TEST ORDERABLE S Performing Organization Address City/State/[place] [address] (ABNORMAL) POCT Glucose (08/11/2017 4:08 PM EST) athologist Signature POC Glucose 240 (H) 65 - 199 [place] [facility] mg/dL [facility] Comment: Supplemental ranges: <140 mg/dL before meals <180 mg/dL all other times of the day Specimen Anatomical Collection Method Collection Time Receive d Time (Source) Location / / Volume Laterality Blood specimen 08/11/2017 4:08 PM 018 4:08 (specimen) EST PM EST Yonathan Smith MD POINT OF CARE TEST ORDERABLE S Performing Organization Address City/State/ZIP Code Phon e Number [address] POCT Glucose (08/11/2017 12:04 PM EST) athologist Signature POC Glucose 182 65 - 199 [facility] mg/dL [facility] Comment: Supplemental ranges: <140 mg/dL before meals <180 mg/dL all other times of the day Specimen Anatomical Collection Method Collection Time Receive d Time (Source) Location / / Volume Laterality Blood specimen 08/11/2017 12:04 8 (specimen) PM EST 12:04 PM EST Yonathan Smith MD POINT OF CARE TEST ORDERABLE S Performing Organization Address City/[facility]/[place] [address] POCT Glucose (08/11/2017 7:31 AM EST) athologist Signature POC Glucose 156 65 - 199 [facility] mg/dL [facility] Comment: Supplemental ranges: <140 mg/dL before meals <180 mg/dL all other times of the day Specimen Anatomical Collection Method Collection Time Receive d Time (Source) Location / / Volume Laterality Blood specimen 08/11/2017 7:31 AM 018 7:31 (specimen) EST AM EST Yonathan Smith MD POINT OF CARE TEST ORDERABLE S Performing Organization Address City/State/ZIP Code Phon e Number [address] (ABNORMAL) Differential, Automated (08/11/2017 6:16 AM EST) [facility] gist Method Time Signature Neutrophils % 83.7 % [facility] Neutr Abs (ANC) 10.76 (H) 1.70 - [facility] 6.10 [facility] x10(3)/[facility] L LABORATORY Lymphocytes % 6.0 % [facility] Lymphocytes Abs 0.8 (L) 0.9 - 3.2 [facility] x10(3)/[facility] LABORATORY Monocytes % 7.5 % [facility] Monocyte Abs 1.0 (H) 0.3 - 0.9 [facility] x10(3)/[facility] LABORATORY Eosinophils % 2.0 % [facility] Eosinophils Abs 0.3 0.0 - 0.4 [facility] x10(3)/[facility] LABORATORY Basophils % 0.3 % [facility] Basophils Abs 0.0 0.0 - 0.1 [facility] x10(3)/[facility] LABORATORY Immature Gran % 0.50 [...] Organization Address City/State/[place] [address] (ABNORMAL) Hemogram (08/11/2017 6:16 AM EST) Analysis Performed At Patho logist Time Signature WBC 12.9 (H) 4.0 - 9.5 [facility] x10(3)/[facility] LABORATORY RBC 3.28 (L) 4.58 - [facility] 5.54 [facility] x10(6)/[facility] LABORATORY Hemoglobin 9.5 (L) 13.7 - [facility] 16.5 gm/dL [facility] Hematocrit 29.8 (L) 40.5 - [place] [facility] 48.5 % [facility] MCV 90.9 82.9 - [facility] 93[facility] [facility] LABORATORY MCH 29.0 27.5 - [place] [facility] 32.1 [facility] LABORATORY MCHC 31.9 (L) 32.0 - [place] 35.7 gm/dL [facility] Platelets 236 145 - 357 [facility] x10(3)/[facility] LABORATORY RDWSD 53.5 (H) 36.0 - [place] [facility] 45.[address] [facility] LABORATORY RDWCV 16.3 (H) 11.4 - [facility] 13.8 % [facility] MPV 8.8 7.6 - 12.9 [facility] nRBC % Auto 0.0 % [facility] nRBC Abs Auto 0.000 0.000 - [facility] 0.000 [facility] x10(3)/[facility] LABORATORY Specimen Anatomical Collection Method Collection Time Receive d Time (Source) Location / / Volume Laterality Blood specimen 08/11/2017 6:16 AM 018 6:24 (specimen) EST AM EST Resulting Agency Comment Spec In Lab Yonathan Smith MD HEMATOLOGY ORDERABLES Performing Organization Address City/State/ZIP Code Phon e Number [place] [id number]OS[address] LAB[address]ORY Drive (ABNORMAL) Prothrombin Time (08/11/2017 [...] Organization Address City/State/[place] [address] Basic Metabolic Panel (non-fasting) (08/11/2017 6:16 AM EST) P athologist Signature Glucose Lvl 139 65 - 199 [facility] mg/dL [facility] Comment: Diabetes: >=200 mg/dL plus symp toms BUN 12 10 - 20 mg/dL [facility] Creatinine 0.91 0.80 - 1.50 mg/dL [facility] Sodium 138 135 - 145 mmol/L [facility] LAB[facility]ORY Estimated GFR >60 >=60 [facility] Comment: The reported eGFR should be multiplied b y 1.2 for patients. The MDRD is not an appropriate measure o f renal function for patients with body mass extremes or in patients with acute kidney failure. http://Stereobot.Turbine/DHnkdep http://Stereobot.Turbine/DHMCnkf Specimen Anatomical Collection Method Collection Time Receive d Time (Source) Location / / Volume Laterality Blood specimen 08/11/2017 6:16 AM 018 6:24 (specimen) EST AM EST Resulting Agency Comment Spec In Lab Yonathan Smith MD CHEMISTRY ORDERABLES Performing Organization Address City/State/ZIP Code Phon e Number [address] POCT Glucose (08/11/2017 4:07 AM EST) athologist Signature POC Glucose 162 65 - 199 [place] [facility] mg/dL [facility] Comment: Supplemental ranges: <140 mg/dL before meals <180 mg/dL all other times of the day Specimen Anatomical Collection Method Collection Time Receive d Time (Source) Location / / Volume Laterality Blood specimen 08/11/2017 4:07 AM 018 4:07 (specimen) EST AM EST Yonathan Smith MD POINT OF CARE TEST ORDERABLE S Performing Organization Address City/[facility]/ZIP Code Phon e Number [place] [address] POCT Glucose (08/10/2017 11:59 PM EST) athologist Signature POC Glucose 166 65 - 199 [place] mg/dL [facility] Comment: Supplemental ranges: <140 mg/dL before meals <180 mg/dL all other times of the day Specimen Anatomical Collection Method Collection Time Receive d Time (Source) Location / / Volume Laterality Blood specimen 08/10/2017 11:59 8 (specimen) PM EST 11:59 PM EST Yonathan Smith MD POINT OF CARE TEST ORDERABLE S Performing Organization Address City/[facility]/ZIP Code Phon e Number [place] [address] POCT Glucose (08/10/2017 8:12 PM EST) athologist Signature POC Glucose 156 65 - 199 [place] [facility] mg/dL [facility] Comment: Supplemental ranges: <140 mg/dL before meals <180 mg/dL all other times of the day Specimen Anatomical Collection Method Collection Time Receive d Time (Source) Location / / Volume Laterality Blood specimen 08/10/2017 8:12 PM 018 8:12 (specimen) EST PM EST Yonathan Smith MD POINT OF CARE TEST ORDERABLE S Performing Organization Address City/State/[place] [address] (ABNORMAL) POCT Glucose (08/10/2017 4:42 PM EST) P athologist Signature POC Glucose 211 (H) 65 - 199 [facility] Comment: Supplemental ranges: <140 mg/dL before meals <180 mg/dL all other times of the day Specimen Anatomical Collection Method Collection Time Receive d Time (Source) Location / / Volume Laterality Blood specimen 08/10/2017 4:42 PM 018 4:42 (specimen) EST PM EST Yonathan Smith MD POINT OF CARE TEST ORDERABLE S Performing Organization Address City/State/ZIP Code Phon e Number [address] (ABNORMAL) Differential, Automated (08/10/2017 2:30 PM EST) Patholo gist Method Time Signature Neutrophils % 87.6 % [facility] Neutr Abs (ANC) 9.90 (H) 1.70 - [facility] 6.10 [facility] x10(3)/[facility] L LABORATORY Lymphocytes % 4.3 % [facility] Lymphocytes Abs 0.5 (L) 0.9 - 3.2 [facility] x10(3)/[facility] LABORATORY Monocytes % 6.0 % [facility] Monocyte Abs 0.7 0.3 - 0.9 [facility] x10(3)/[facility] LABORATORY Eosinophils % 1.1 % [facility] Eosinophils Abs 0.1 0.0 - 0.4 [facility] x10(3)/[facility] LABORATORY Basophils % 0.4 % [facility] Basophils Abs 0.0 0.0 - 0.1 [facility] x10(3)/[facility] LABORATORY Immature Gran % 0.60 [...] Organization Address City/State/[place] [address] (ABNORMAL) Hemogram (08/10/2017 2:30 PM EST) Analysis Performed At Patho logist Time Signature WBC 11.3 (H) 4.0 - 9.5 [facility] x10(3)/[facility] LABORATORY RBC 3.13 (L) 4.58 - [facility] SU 5.54 [facility] x10(6)/[facility] LABORATORY Hemoglobin 8.9 (L) 13.7 - [facility] gm/dL [facility] Hematocrit 28.4 (L) 40.5 - [facility] 48.5 % [facility] MCV 90.7 82.9 - [facility] 93.[address] [facility] LABORATORY MCH 28.4 27.5 - [facility] SU 32.1 pg [facility] MCHC 31.3 (L) 32.0 - [facility] 35.7 gm/dL [facility] Platelets 213 145 - 357 [facility] x10(3)/[facility] LABORATORY RDWSD 53.7 (H) 36.0 - [facility] SU 45.[address] [facility] LABORATORY RDWCV 16.4 (H) 11.4 - [facility] SU 13.8 % [facility] MPV 8.9 7.6 - 12.9 [facility] LABORATORY nRBC % Auto 0.0 % [facility] nRBC Abs Auto 0.000 0.000 - [facility] SU 0.000 [facility] x10(3)/[facility] LABORATORY Specimen Anatomical Collection Method Collection Time Receive d Time (Source) Location / / Volume Laterality Blood specimen 08/10/2017 2:30 PM 018 2:48 (specimen) EST PM EST Resulting Agency Comment Spec In Lab Yonathan Smith MD HEMATOLOGY ORDERABLES Performing Organization Address City/State/[place] [address] (ABNORMAL) POCT Glucose (08/10/2017 1:50 PM EST) athologist Signature POC Glucose 243 (H) 65 - 199 [facility] mg/dL [facility] Comment: Supplemental ranges: <140 mg/dL before meals <180 mg/dL all other times of the day Specimen Anatomical Collection Method Collection Time Receive d Time (Source) Location / / Volume Laterality Blood specimen 08/10/2017 1:50 PM 018 1:50 (specimen) EST PM EST Yonathan Smith MD POINT OF CARE TEST ORDERABLE S Performing Organization Address City/[facility]/[place] [address] POCT Glucose (08/10/2017 11:21 AM EST) athologist Signature POC Glucose 156 65 - 199 [facility] mg/dL [facility] Comment: Supplemental ranges: <140 mg/dL before meals <180 mg/dL all other times of the day Specimen Anatomical Collection Method Collection Time Receive d Time (Source) Location / / Volume Laterality Blood specimen 08/10/2017 11:21 8 (specimen) AM EST 11:21 AM EST Yonathan Smith MD POINT OF CARE TEST ORDERABLE S Performing Organization Address City/State/[place] [address] (ABNORMAL) Differential, Automated (08/10/2017 10:28 AM EST) [facility] gist Method Time Signature Neutrophils % 85.3 % [facility] Neutr Abs (ANC) 9.43 (H) 1.70 - [facility] SU 6.10 [facility] x10(3)/[facility] L LABORATORY Lymphocytes % 5.5 % [facility] Lymphocytes Abs 0.6 (L) 0.9 - 3.2 [facility] x10(3)/[facility] LABORATORY Monocytes % 5.9 % [facility] Monocyte Abs 0.6 0.3 - 0.9 [facility] x10(3)/[facility] LABORATORY Eosinophils % 2.1 % [facility] Eosinophils Abs 0.2 0.0 - 0.4 [facility] x10(3)/[facility] LABORATORY Basophils % 0.4 % [facility] Basophils Abs 0.0 0.0 - 0.1 [facility] x10(3)/[facility] LABORATORY Immature Gran % 0.80 [...] Gran Abs 0.09 (H) 0.00 - 0.04 x10(3)/[facility] LABORATORY Specimen Anatomical Collection Method Collection Time Receive d Time (Source) Location / / Volume Laterality Blood specimen 08/10/2017 10:28 8 (specimen) AM EST 10:35 AM EST Resulting Agency Comment Spec In Lab Yonathan Smith MD HEMATOLOGY ORDERABLES Performing Organization Address City/State/[place] [address] (ABNORMAL) Hemogram (08/10/2017 10:28 AM EST) Analysis Performed At Patho logist Time Signature WBC 11.0 (H) 4.0 - 9.5 [facility] x10(3)/[facility] LABORATORY RBC 3.02 (L) 4.58 - [facility] 5.54 [facility] x10(6)/[facility] LABORATORY Hemoglobin 8.8 (L) 13.7 - [facility] 16.5 gm/dL [facility] Hematocrit 28.1 (L) 40.5 - [place] [facility] 48.5 % [facility] MCV 93.0 82.9 - [facility] 93[facility] [facility] LABORATORY MCH 29.1 27.5 - [place] [facility] 32.1 pg [facility] MCHC 31.3 (L) 32.0 - [place] [facility] 35.7 gm/dL [facility] Platelets 207 145 - 357 [place] x10(3)/[facility] LABORATORY RDWSD 55.3 (H) 36.0 - [place] [facility] 45.[address] [facility] LABORATORY RDWCV 16.4 (H) 11.4 - [place] [facility] 13.8 % [facility] MPV 9.0 7.6 - 12.9 [facility] LABORATORY nRBC % Auto 0.0 % [facility] nRBC Abs Auto 0.000 0.000 - [place] [facility] 0.000 [facility] x10(3)/[facility] LABORATORY Specimen Anatomical Collection Method Collection Time Receive d Time (Source) Location / / Volume Laterality Blood specimen 08/10/2017 10:28 8 (specimen) AM EST 10:35 AM EST Resulting Agency Comment Spec In Lab Yonathan Smith MD HEMATOLOGY ORDERABLES Performing Organization Address City/State/ZIP Code Phon e Number [place] [id number] VS Angiogram/intervention (vascular) (08/10/2017 [...] 2.5x80 5. Completion RLE angiogram 6. L BIOPHYSICS PROFESSOR angiogram 7. 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 L BIOPHYSICS PROFESSOR access in the distal L BIOPHYSICS PROFESSOR. - Closure device: Mynx Technical Procedure: ?The [...] for a 45cm 5F Destination. V18 and Pickford a nd QuickCross catheters were used to [...] bifurcation. Access appeared in the distal R BIOPHYSICS PROFESSOR. Closure and sheath removal was performed with [...] 2.5x80 5. Completion RLE angiogram 6. L BIOPHYSICS PROFESSOR angiogram 7. 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 L BIOPHYSICS PROFESSOR access in the distal L BIOPHYSICS PROFESSOR. - Closure device: Mynx Technical Procedure: The [...] for a 45cm 5F Destination. V18 and Pickford a nd QuickCross catheters were used to [...] bifurcation. Access appeared in the distal R BIOPHYSICS PROFESSOR. Closure and sheath removal was performed with [...] (ABNORMAL) Differential, Automated (08/10/2017 5:50 AM EST) [facility] Method Time Signature Neutrophils % 80.1 % [facility] LABORATORY Neutr Abs (ANC) 9.01 (H) 1.70 - [facility] 6.10 [facility] x10(3)/[facility] LABORATORY Lymphocytes % 8.8 % [facility] Lymphocytes Abs 1.0 0.9 - 3.2 [facility] x10(3)/[facility] LABORATORY Monocytes % 8.3 % [facility] Monocyte Abs 0.9 0.3 - 0.9 [facility] x10(3)/[facility] LABORATORY Eosinophils % 2.0 % [facility] Eosinophils Abs 0.2 0.0 - 0.4 [facility] x10(3)/[facility] LABORATORY Basophils % 0.4 % [facility] Basophils Abs 0.0 0.0 - 0.1 [facility] x10(3)/[facility] LABORATORY Immature Gran % 0.40 [...] Gran Abs 0.05 (H) 0.00 - 0.04 x10(3)/[facility] LABORATORY Specimen Anatomical Collection Method Collection Time Receive d Time (Source) Location / / Volume Laterality Blood specimen 08/10/2017 5:50 AM 018 5:59 (specimen) EST AM EST Resulting Agency Comment Spec In Lab Yonathan Smith MD HEMATOLOGY ORDERABLES Performing Organization Address City/State/[place] [address] (ABNORMAL) Hemogram (08/10/2017 5:50 AM EST) Analysis Performed At Patho logist Time Signature WBC 11.3 (H) 4.0 - 9.5 [facility] x10(3)/[facility] LABORATORY RBC 3.15 (L) 4.58 - [facility] x10(6)/[facility] LABORATORY Hemoglobin 8.9 (L) 13.7 - [facility] 16.5 gm/dL [facility] LABORATORY Hematocrit 29.0 (L) 40.5 - [facility] 48.5 % [facility] LAB[facility]ATORY MCV 92.1 82.9 - [facility] 93.[address] [facility] LABORATORY MCH 28.3 27.5 - [facility] 32.1 pg [facility]ATORY MCHC 30.7 (L) 32.0 - [facility] 35.7 gm/dL [facility] LAB[facility]ORY Platelets 231 145 - 357 [facility] x10(3)/[facility] LABORATORY RDWSD 53.9 (H) 36.0 - [place] 45.[address] [facility] LABORATORY RDWCV 16.2 (H) 11.4 - [facility] SU 13.8 % [facility] LABORATORY MPV 8.7 7.6 - 12.9 [facility] LABORATORY nRBC % Auto 0.0 % [facility] LABORATORY nRBC Abs Auto 0.000 0.000 - [facility] 0.000 [facility] x10(3)/[facility] LABORATORY Specimen Anatomical Collection Method Collection Time Receive d Time (Source) Location / / Volume Laterality Blood specimen 08/10/2017 5:50 AM 018 5:59 (specimen) EST AM EST Resulting Agency Comment Spec In Lab Yonathan Smith MD HEMATOLOGY ORDERABLES Performing Organization Address City/State/[place] [address] (ABNORMAL) Basic Metabolic Panel (non-fasting) (08/10/2017 5:50 AM EST) P athologist Signature Glucose Lvl 135 65 - 199 [facility] mg/dL [facility] LABORATORY Comment: Diabetes: [...] [facility]ARE [facility] LABORATORY Estimated GFR >60 >=60 [facility] LABORATORY Comment: The reported eGFR should be multiplied b y 1.2 for patients. The MDRD is not an appropriate measure o f renal function for patients with body mass extremes or in patients with acute kidney failure. http://Stereobot.Turbine/DHnkdep http://Stereobot.Turbine/DHMCnkf Specimen Anatomical Collection Method Collection Time Receive d Time (Source) Location / / Volume Laterality Blood specimen 08/10/2017 5:50 AM 018 5:59 (specimen) EST AM EST Resulting Agency Comment Spec In Lab Yonathan Smith MD CHEMISTRY ORDERABLES Performing Organization Address [facility] [place] [address] (ABNORMAL) Prothrombin Time (08/10/2017 [...] ORDERABLES Performing Organization Address City/[facility] [address] (ABNORMAL) POCT Glucose (08/10/2017 4:01 AM EST) athologist Signature POC Glucose 206 (H) 65 - 199 [facility] mg/dL [facility] LABORATORY Comment: Supplemental ranges: <140 mg/dL before meals <180 mg/dL all other times of the day Specimen Anatomical Collection Method Collection Time Receive d Time (Source) Location / / Volume Laterality Blood specimen 08/10/2017 4:01 AM 018 4:01 (specimen) EST AM EST Yonathan Smith MD POINT OF CARE TEST ORDERABLE S Performing Organization Address City/State/[place] [address] POCT Glucose (08/10/2017 2:01 AM EST) athologist Signature POC Glucose 188 65 - 199 [facility] mg/dL [facility] LABORATORY Comment: Supplemental ranges: <140 mg/dL before meals <180 mg/dL all other times of the day Specimen Anatomical Collection Method Collection Time Receive d Time (Source) Location / / Volume Laterality Blood specimen 08/10/2017 2:01 AM 018 2:01 (specimen) EST AM EST Yonathan Smith MD POINT OF CARE TEST ORDERABLE S Performing Organization Address City/[facility]/[place] [address] (ABNORMAL) POCT Glucose (08/09/2017 11:42 PM EST) athologist Signature POC Glucose 283 (H) 65 - 199 [facility] SU mg/dL [facility] LABOR[facility]ORY Comment: Supplemental ranges: <140 mg/dL before meals <180 mg/dL all other times of the day Specimen Anatomical Collection Method Collection Time Receive d Time (Source) Location / / Volume Laterality Blood specimen 08/09/2017 11:42 8 (specimen) PM EST 11:42 PM EST Yonathan Smith MD POINT OF CARE TEST ORDERABLE S Performing Organization Address City/State/[place] [address] POCT Glucose (08/09/2017 8:55 PM EST) athologist Signature POC Glucose 182 65 - 199 [facility] mg/dL [facility]OR[facility] Comment: Supplemental ranges: <140 mg/dL before meals <180 mg/dL all other times of the day Specimen Anatomical Collection Method Collection Time Receive d Time (Source) Location / / Volume Laterality Blood specimen 08/09/2017 8:55 PM 018 8:55 (specimen) EST PM EST Yonathan Smith MD POINT OF CARE TEST ORDERABLE S Performing Organization Address City/[facility]/[place] [address] (ABNORMAL) APTT (08/09/2017 6:42 [...] City/[facility]/[place] [address] POCT Glucose (08/09/2017 4:41 PM EST) athologist Signature POC Glucose 195 65 - 199 [facility] mg/dL [facility] LABOR[facility]ORY Comment: Supplemental ranges: <140 mg/dL before meals <180 mg/dL all other times of the day Specimen Anatomical Collection Method Collection Time Receive d Time (Source) Location / / Volume Laterality Blood specimen 08/09/2017 4:41 PM 018 4:41 (specimen) EST PM EST Yonathan Smith MD POINT OF CARE TEST ORDERABLE S Performing Organization Address City/[facility]/[place] [address] POCT Glucose (08/09/2017 12:29 PM EST) athologist Signature POC Glucose 140 65 - 199 [facility] mg/dL [facility] LAB[facility]ORY Comment: Supplemental ranges: <140 mg/dL before meals <180 mg/dL all other times of the day Specimen Anatomical Collection Method Collection Time Receive d Time (Source) Location / / Volume Laterality Blood specimen 08/09/2017 12:29 8 (specimen) PM EST 12:29 PM EST Yonathan Smith MD POINT OF CARE TEST ORDERABLE S Performing Organization Address [facility]/ZIP Code Phon e Number [address] POCT Glucose (08/09/2017 9:59 AM EST) P athologist Signature POC Glucose 135 65 - 199 [facility] mg/dL [facility] LABOR[facility]ORY Comment: Supplemental ranges: <140 mg/dL before meals <180 mg/dL all other times of the day Specimen Anatomical Collection Method Collection Time Receive d Time (Source) Location / / Volume Laterality Blood specimen 08/09/2017 9:59 AM 018 9:59 (specimen) EST AM EST Yonathan Smith MD POINT OF CARE TEST ORDERABLE S Performing Organization Address [facility]/[place] [address] Specimen to Pathology (08/09/2017 [...] City/[facility]/[place] [address] Surgical Pathology Report (08/09/2017 8:40 AM EST) Component Value Ref Test Analysis Performed At Patholo gist Range Method Time Signature Surgical [id number] ? Location[facility]; [facility] [place] [facility] [place]; A [facility] Report The signing pathologist has (i) [...] [facility] Dept. of Pathology, [place], [place] CLINICAL INFORMATION Specimen Submitted: A - [...] Organization Address City/State/[place] [address] Anaerobic Culture (08/09/2017 8:30 AM EST) [facility] Method Time Signature Anaerobic No anaerobic [facility] Culture organisms [facility] LABORATORY Specimen Anatomical Collection Method [...] City/[facility]/[place] [address] (ABNORMAL) Abscess/Wound Aspirate Culture (08/09/2017 8:30 AM EST) [facility] Method Time Signature Abscess/Wound Moderate mixed [facility] Aspirate bacterial FORGAN Culture morphotypes [facility] normal LABORATORY cutaneous leroy (A) Gram Stain Rare White Blood Cells [facility] Few Gram Positive Cocci in pairs FORGAN () [facility] LABORATORY Organism Gram Positive [place] Cocci in pairs FORGAN () [facility] LABORATORY Specimen Anatomical Collection [...] City/[facility]/ZIP Code [place] [address] POCT Glucose (08/09/2017 4:28 AM EST) P athologist Signature POC Glucose 128 65 - 199 [facility] mg/dL [facility] LABORATORY Comment: Supplemental ranges: <140 mg/dL before meals <180 mg/dL all other times of the day Specimen Anatomical Collection Method Collection Time Receive d Time (Source) Location / / Volume Laterality Blood specimen 08/09/2017 4:28 AM 018 4:28 (specimen) EST AM EST Yonathan Smith MD POINT OF CARE TEST ORDERABLE S Performing Organization Address City/State/[place] [address] ABORH Recheck Status (08/09/2017 1:10 AM EST) [facility] Method Time Signature ABORH Type Completed [facility] LABORATORY Specimen Anatomical Collection Method Collection Time Receive d Time (Source) Location / / Volume Laterality Blood specimen 08/09/2017 1:10 AM 018 1:35 (specimen) EST AM EST Resulting Agency Comment Spec In Lab Yonathan Smith MD BLOOD BANK ORDERABLES Performing Organization Address City/State/[place] [address] Antibody screen (08/09/2017 1:10 AM EST) [facility] Method Rollins Signature Ab Screen Negative [facility] LABORATORY Expires at 08/12/2017 [facility] [id number] on: [facility] LABORATORY Specimen Anatomical Collection Method Collection Time Receive d Time (Source) Location / / Volume Laterality Blood specimen 08/09/2017 1:10 AM 018 1:35 (specimen) EST AM EST Resulting Agency Comment Spec In Lab Yonathan Smith MD BLOOD BANK ORDERABLES Performing Organization Address City/State/[place] [address] ABO/Rh Typing (08/09/2017 1:10 [...] Address City/State/[place] [address] (ABNORMAL) APTT (08/09/2017 1:10 [...] Organization Address City/State/[place] [address] (ABNORMAL) Differential, Automated (08/09/2017 1:10 AM EST) [facility] Method Time Signature Neutrophils % 76.2 % [facility]ORY Neutr Abs (ANC) 8.59 (H) 1.70 - [facility] 6.10 [facility] x10(3)/[facility] LABORATORY Lymphocytes % 11.0 % [facility] LABORATORY Lymphocytes Abs 1.2 0.9 - 3.2 [facility] x10(3)/[facility] LABORATORY Monocytes % 8.4 % [facility] LABORATORY Monocyte Abs 1.0 (H) 0.3 - 0.9 [facility] x10(3)/[facility] LABORATORY Eosinophils % 3.5 % [facility]ATORY Eosinophils Abs 0.4 0.0 - 0.4 [facility] x10(3)/[facility] LABORATORY Basophils % 0.5 % [facility] LABORATORY Basophils Abs 0.1 0.0 - 0.1 [facility] x10(3)/[facility] LABORATORY Immature Gran % 0.40 [...] Gran Abs 0.05 (H) 0.00 - 0.04 x10(3)/[facility] LABORATORY Specimen Anatomical Collection Method Collection Time Receive d Time (Source) Location / / Volume Laterality Blood specimen 08/09/2017 1:10 AM 018 1:19 (specimen) EST AM EST Resulting Agency Comment Spec In Lab Yonathan Smith MD HEMATOLOGY ORDERABLES Performing Organization Address City/State/[place] [address] (ABNORMAL) Hemogram (08/09/2017 1:10 AM EST) Analysis Performed At Patho logist Time Signature WBC 11.3 (H) 4.0 - 9.5 [facility] x10(3)/[facility] LABORATORY RBC 3.47 (L) 4.58 - [facility] 5.54 [facility] x10(6)/[facility] LABORATORY Hemoglobin 10.0 (L) 13.7 - [facility] 16.5 gm/dL [facility] LABORATORY Hematocrit 31.9 (L) 40.5 - [facility] 48.5 % [facility] LABORATORY MCV 91.9 82.9 - [facility] 93.[address] [facility] LABORATORY MCH 28.8 27.5 - [facility] 32.1 pg [facility] LABORATORY MCHC 31.3 (L) 32.0 - [facility] 35.7 gm/dL [facility] LABORATORY Platelets 234 145 - 357 [facility] x10(3)/[facility] LABORATORY RDWSD 54.0 (H) 36.0 - [facility] SU 45.[address] [facility] LABORATORY RDWCV 16.2 (H) 11.4 - [facility] SU 13.8 % [facility] LABORATORY MPV 8.7 7.6 - 12.9 [facility] LABORATORY nRBC % Auto 0.0 % [facility] LABORATORY nRBC Abs Auto 0.000 0.000 - [facility] SU 0.000 [facility] x10(3)/[facility] LABORATORY Specimen Anatomical Collection Method Collection Time Receive d Time (Source) Location / / Volume Laterality Blood specimen 08/09/2017 1:10 AM 018 1:19 (specimen) EST AM EST Resulting Agency Comment Spec In Lab Yonathan Smith MD HEMATOLOGY ORDERABLES Performing Organization Address City/[facility]/[place] [address] (ABNORMAL) Prothrombin Time (08/09/2017 [...] City/[facility]/[place] [address] (ABNORMAL) Basic Metabolic Panel (non-fasting) (08/09/2017 1:10 AM EST) P athologist Signature Glucose Lvl 108 65 - 199 [facility] mg/dL [facility] LABORATORY Comment: Diabetes: >=200 mg/dL plus symp toms BUN 34 (H) 10 - 20 mg/dL [facility] LABORATORY Creatinine 1.54 (H) 0.80 - 1.50 mg/dL [facility] LABORATORY Sodium 138 135 - 145 mmol/L [facility] 8.3 (L) 8.5 - 10.5 mg/dL [facility] LABORATORY Estimated GFR 45 (L) >=60 [facility] LABORATORY Comment: The reported eGFR should be multiplied b y 1.2 for patients. The MDRD is not an appropriate measure o f renal function for patients with body mass extremes or in patients with acute kidney failure. http://Eventfinda/DHnkdep http://Eventfinda/DHMCnkf Specimen Anatomical Collection Method Collection Time Receive d Time (Source) Location / / Volume Laterality Blood specimen 08/09/2017 1:10 AM 018 1:19 (specimen) EST AM EST Resulting Agency Comment Spec In Lab Yonathan Smith MD CHEMISTRY ORDERABLES Performing Organization Address City/State/ZIP Code Phon e Number [address] POCT Glucose (08/09/2017 12:05 AM EST) athologist Signature POC Glucose 128 65 - 199 [facility] mg/dL [facility] LABORATORY Comment: Supplemental ranges: <140 mg/dL before meals <180 mg/dL all other times of the day Specimen Anatomical Collection Method Collection Time Receive d Time (Source) Location / / Volume Laterality Blood specimen 08/09/2017 12:05 8 (specimen) AM EST 12:05 AM EST Yonathan Smith MD POINT OF CARE TEST ORDERABLE S Performing Organization Address City/[facility]/[place] [address] (ABNORMAL) POCT Glucose (08/08/2017 7:36 PM EST) athologist Signature POC Glucose 215 (H) 65 - 199 [facility]/dL [facility] LABOR[facility]ORY Comment: Supplemental ranges: <140 mg/dL before meals <180 mg/dL all other times of the day Specimen Anatomical Collection Method Collection Time Receive d Time (Source) Location / / Volume Laterality Blood specimen 08/08/2017 7:36 PM 018 7:36 (specimen) EST PM EST Yonathan Smith MD POINT OF CARE TEST ORDERABLE S Performing Organization Address City/State/[place] [address] (ABNORMAL) POCT Glucose (08/08/2017 6:23 PM EST) P athologist Signature POC Glucose 216 (H) 65 - 199 [facility] mg/dL [facility] LABOR[facility]ORY Comment: Supplemental ranges: <140 mg/dL before meals <180 mg/dL all other times of the day Specimen Anatomical Collection Method Collection Time Receive d Time (Source) Location / / Volume Laterality Blood specimen 08/08/2017 6:23 PM 018 6:23 (specimen) EST PM EST Yonathan Smith MD POINT OF CARE TEST ORDERABLE S Performing Organization Address City/[facility]/[place] [address] (ABNORMAL) APTT (08/08/2017 6:00 [...] City/[facility]/[place] [address] POCT Glucose (08/08/2017 4:42 PM EST) athologist Signature POC Glucose 78 65 - 199 [facility] mg/dL [facility] LABORATORY Comment: Supplemental ranges: <140 mg/dL before meals <180 mg/dL all other times of the day Specimen Anatomical Collection Method Collection Time Receive d Time (Source) Location / / Volume Laterality Blood specimen 08/08/2017 4:42 PM 018 4:42 (specimen) EST PM EST Yonathan Smith MD POINT OF CARE TEST ORDERABLE S Performing Organization Address City/State/[place] [address] (ABNORMAL) POCT Glucose (08/08/2017 4:01 PM EST) athologist Signature POC Glucose 58 (L) 65 - 199 [facility] mg/dL [facility] LABORATORY Comment: Supplemental ranges: <140 mg/dL before meals <180 mg/dL all other times of the day Specimen Anatomical Collection Method Collection Time Receive d Time (Source) Location / / Volume Laterality Blood specimen 08/08/2017 4:01 PM 018 4:01 (specimen) EST PM EST Yonathan Smith MD POINT OF CARE TEST ORDERABLE S Performing Organization Address City/State/[place] [address] POCT Glucose (08/08/2017 11:51 AM EST) athologist Signature POC Glucose 90 65 - 199 [facility] mg/dL [facility] LABORATORY Comment: Supplemental ranges: <140 mg/dL before meals <180 mg/dL all other times of the day Specimen Anatomical Collection Method Collection Time Receive d Time (Source) Location / / Volume Laterality Blood specimen 08/08/2017 11:51 8 (specimen) AM EST 11:51 AM EST Yonathan Smith MD POINT OF CARE TEST ORDERABLE S Performing Organization Address City/State/[place] [address] (ABNORMAL) APTT (08/08/2017 10:27 [...] Address City/State/ZIP Code Phon e Number [address] POCT Glucose (08/08/2017 8:02 AM EST) athologist Signature POC Glucose 178 65 - 199 [facility] mg/dL [facility] LABORATORY Comment: Supplemental ranges: <140 mg/dL before meals <180 mg/dL all other times of the day Specimen Anatomical Collection Method Collection Time Receive d Time (Source) Location / / Volume Laterality Blood specimen 08/08/2017 8:02 AM 018 8:02 (specimen) EST AM EST Yonathan Smith MD POINT OF CARE TEST ORDERABLE S Performing Organization Address City/[facility]/[place] [address] (ABNORMAL) APTT (08/08/2017 4:51 AM EST) athologist Signature PTT >160 25 - 35 [facility] (Critical) sec [facility] LABORATORY Comment: Called by: HOWARD, [...] Organization Address City/State/[place] [address] (ABNORMAL) Differential, Automated (08/08/2017 4:51 AM EST) [facility] gist Method Time Signature Neutrophils % 77.9 % [facility] LABORATORY Neutr Abs (ANC) 8.17 (H) 1.70 - [facility] 6.10 [facility] x10(3)/[facility] LABORATORY Lymphocytes % 10.3 % [facility] LABORATORY Lymphocytes Abs 1.1 0.9 - 3.2 [facility] x10(3)/[facility] LABORATORY Monocytes % 7.0 % [facility] LABORATORY Monocyte Abs 0.7 0.3 - 0.9 [facility] x10(3)/[facility] LABORATORY Eosinophils % 3.6 % [facility] LABORATORY Eosinophils Abs 0.4 0.0 - 0.4 [facility] x10(3)/[facility] LABORATORY Basophils % 0.5 % [facility] LABORATORY Basophils Abs 0.0 0.0 - 0.1 [facility] x10(3)/[facility] LABORATORY Immature Gran % [...] Address City/State/[place] [address] (ABNORMAL) Hemogram (08/08/2017 4:51 AM EST) Analysis Performed At Patho logist Time Signature WBC 10.5 (H) 4.0 - 9.5 [facility] x10(3)/[facility] LABORATORY RBC 3.27 (L) 4.58 - [place] 5.54 [facility] x10(6)/[facility] LABORATORY Hemoglobin 9.3 (L) 13.7 - [place] 16.5 gm/dL [facility] LABORATORY Hematocrit 30.3 (L) 40.5 - [facility] 48.5 % [facility] LABORATORY MCV 92.7 82.9 - [facility] 93.[address] [facility] LABORATORY MCH 28.4 27.5 - [place] 32.1 pg [facility] LABORATORY MCHC 30.7 (L) 32.0 - [place] 35.7 gm/dL [facility] LABORATORY Platelets 252 145 - 357 [facility] x10(3)/[facility] LABORATORY RDWSD 54.6 (H) 36.0 - [place] 45.[address] [facility] LABORATORY RDWCV 16.2 (H) 11.4 - [place] 13.8 % [facility] LABORATORY MPV 9.1 7.6 - 12.9 [place] [facility] LABORATORY nRBC % Auto 0.0 % [facility] LABORATORY nRBC Abs Auto 0.000 0.000 - [place] 0.000 [facility] x10(3)/[facility] LABORATORY Specimen Anatomical Collection Method Collection Time Receive d Time (Source) Location / / Volume Laterality Blood specimen 08/08/2017 4:51 AM 018 5:14 (specimen) EST AM EST Resulting Agency Comment Spec In Lab Yonathan Smith MD HEMATOLOGY ORDERABLES Performing Organization Address City/State/[place] [address] (ABNORMAL) Prothrombin Time (08/08/2017 [...] Organization Address City/State/[place] [address] (ABNORMAL) Basic Metabolic Panel (non-fasting) (08/08/2017 4:51 AM EST) athologist Signature Glucose Lvl 229 (H) 65 - 199 [facility] mg/dL [facility] LABORATORY Comment: Diabetes: >=200 mg/dL plus symp toms BUN 35 (H) 10 - 20 mg/dL [facility] LABORATORY Creatinine 1.57 (H) 0.80 - 1.50 mg/dL [facility] [...] 7.9 (L) 8.5 - 10.5 mg/dL [facility] LABORATORY Estimated GFR 44 (L) >=60 [facility] LABORATORY Comment: The reported eGFR should be multiplied b y 1.2 for patients. The MDRD is not an appropriate measure o f renal function for patients with body mass extremes or in patients with acute kidney failure. http://Eventfinda/DHnkdep http://Eventfinda/DHMCnkf Specimen Anatomical Collection Method Collection Time Receive d Time (Source) Location / / Volume Laterality Blood specimen 08/08/2017 4:51 AM 018 5:14 (specimen) EST AM EST Resulting Agency Comment Spec In Lab Yonathan Smith MD CHEMISTRY ORDERABLES Performing Organization Address City/[facility]/ZIP Code Phon e Number [address] POCT Glucose (08/08/2017 4:20 AM EST) athologist Signature POC Glucose 193 65 - 199 [facility] mg/dL [facility] LABORATORY Comment: Supplemental ranges: <140 mg/dL before meals <180 mg/dL all other times of the day Specimen Anatomical Collection Method Collection Time Receive d Time (Source) Location / / Volume Laterality Blood specimen 08/08/2017 4:20 AM 018 4:20 (specimen) EST AM EST Yonathan Smith MD POINT OF CARE TEST ORDERABLE S Performing Organization Address City/State/ZIP Code Phon e Number [address] POCT Glucose (08/07/2017 11:11 PM EST) athologist Signature POC Glucose 124 65 - 199 [facility] LABORATORY Comment: Supplemental ranges: <140 mg/dL before meals <180 mg/dL all other times of the day Specimen Anatomical Collection Method Collection Time Receive d Time (Source) Location / / Volume Laterality Blood specimen 08/07/2017 11:11 8 (specimen) PM EST 11:11 PM EST Yonathan Smith MD POINT OF CARE TEST ORDERABLE S Performing Organization Address City/[facility]/[place] [address] (ABNORMAL) APTT (08/07/2017 10:18 [...] City/[facility]/[place] [address] POCT Glucose (08/07/2017 8:10 PM EST) athologist Signature POC Glucose 140 65 - 199 [facility] mg/dL [facility] LABORATORY Comment: Supplemental ranges: <140 mg/dL before meals <180 mg/dL all other times of the day Specimen Anatomical Collection Method Collection Time Receive d Time (Source) Location / / Volume Laterality Blood specimen 08/07/2017 8:10 PM 018 8:10 (specimen) EST PM EST Yonathan Smith MD POINT OF CARE TEST ORDERABLE S Performing Organization Address City/[facility]/[place] [address] POCT Glucose (08/07/2017 5:27 PM EST) athologist Signature POC Glucose 187 65 - 199 [facility] mg/dL [facility] LABORATORY Comment: Supplemental ranges: <140 mg/dL before meals <180 mg/dL all other times of the day Specimen Anatomical Collection Method Collection Time Receive d Time (Source) Location / / Volume Laterality Blood specimen 08/07/2017 5:27 PM 018 5:27 (specimen) EST PM EST Yonathan Smith MD POINT OF CARE TEST ORDERABLE S Performing Organization Address City/[facility]/[place] [address] POCT Glucose (08/07/2017 3:29 PM EST) athologist Signature POC Glucose 86 65 - 199 [facility]/dL [facility] LABORATORY Comment: Supplemental ranges: <140 mg/dL before meals <180 mg/dL all other times of the day Specimen Anatomical Collection Method Collection Time Receive d Time (Source) Location / / Volume Laterality Blood specimen 08/07/2017 3:29 PM 018 3:29 (specimen) EST PM EST Yonathan Smith MD POINT OF CARE TEST ORDERABLE S Performing Organization Address [facility]/ZIP [facility] [place] [address] (ABNORMAL) APTT (08/07/2017 2:50 [...] ORDERABLES Performing Organization Address City/[facility]/ZIP [facility] Phon e Number [address] (ABNORMAL) POCT Glucose (08/07/2017 2:23 PM EST) athologist Signature POC Glucose 55 (L) 65 - 199 [place] mg/dL [facility] LABORATORY Comment: Supplemental ranges: <140 mg/dL before meals <180 mg/dL all other times of the day Specimen Anatomical Collection Method Collection Time Receive d Time (Source) Location / / Volume Laterality Blood specimen 08/07/2017 2:23 PM 018 2:23 (specimen) EST PM EST Yonathan Smith MD POINT OF CARE TEST ORDERABLE S Performing Organization Address City/State/ZIP Code Phon e Number [address] POCT Glucose (08/07/2017 12:08 PM EST) P athologist Signature POC Glucose 77 65 - 199 [facility] mg/dL [facility] LABORATORY Comment: Supplemental ranges: <140 mg/dL before meals <180 mg/dL all other times of the day Specimen Anatomical Collection Method Collection Time Receive d Time (Source) Location / / Volume Laterality Blood specimen 08/07/2017 12:08 8 (specimen) PM EST 12:08 PM EST Yonathan Smith MD POINT OF CARE TEST ORDERABLE S Performing Organization Address City/State/ZIP Code Phon e Number [address] (ABNORMAL) Differential, Automated (08/07/2017 7:30 AM EST) Patholo gist Method Time Signature Neutrophils % 73.8 % [facility] LABORATORY Neutr Abs (ANC) 7.17 (H) 1.70 - [facility] 6.10 [facility] x10(3)/[facility] LABORATORY Lymphocytes % 12.2 % [facility] LABORATORY Lymphocytes Abs 1.2 0.9 - 3.2 [facility] x10(3)/[facility] LABORATORY Monocytes % 9.0 % [facility] LABORATORY Monocyte Abs 0.9 0.3 - 0.9 [facility] x10(3)/[facility] LABORATORY Eosinophils % 3.9 % [facility] LABORATORY Eosinophils Abs 0.4 0.0 - 0.4 [facility] x10(3)/[facility] LABORATORY Basophils % 0.6 % [facility] LABORATORY Basophils Abs 0.1 0.0 - 0.1 [facility] x10(3)/[facility] LABORATORY Immature Gran % 0.50 [...] Gran Abs 0.05 (H) 0.00 - 0.04 x10(3)/[facility] LABORATORY Specimen Anatomical Collection Method Collection Time Receive d Time (Source) Location / / Volume Laterality Blood specimen 08/07/2017 7:30 AM 018 7:45 (specimen) EST AM EST Resulting Agency Comment Spec In Lab Yonathan Smith MD HEMATOLOGY ORDERABLES Performing Organization Address City/State/[place] [address] (ABNORMAL) Hemogram (08/07/2017 7:30 AM EST) Analysis Performed At Patho logist Time Signature WBC 9.7 (H) 4.0 - 9.5 [facility] x10(3)/[facility] LABORATORY RBC 3.54 (L) 4.58 - [facility] 5.54 [facility] x10(6)/[facility] LABORATORY Hemoglobin 9.9 (L) 13.7 - [facility] 16.5 gm/dL [facility] LABORATORY Hematocrit 32.3 (L) 40.5 - [facility] 48.5 % [facility] LABORATORY MCV 91.2 82.9 - [facility] 93.[address] [facility] LABORATORY MCH 28.0 27.5 - [facility] 32.1 pg [facility] LABORATORY MCHC 30.7 (L) 32.0 - [facility] 35.7 gm/dL [facility] LABORATORY Platelets 312 145 - 357 [facility] x10(3)/[facility] LABORATORY RDWSD 53.2 (H) 36.0 - [facility] 45.[address] [facility] LABORATORY RDWCV 16.0 (H) 11.4 - [facility] 13.8 % [facility] LABORATORY MPV 8.9 7.6 - 12.9 [facility] LABORATORY nRBC % Auto 0.0 % [facility] LABORATORY nRBC Abs Auto 0.000 0.000 - [facility] 0.000 [facility] x10(3)/[facility] LABORATORY Specimen Anatomical Collection Method Collection Time Receive d Time (Source) Location / / Volume Laterality Blood specimen 08/07/2017 7:30 AM 018 7:45 (specimen) EST AM EST Resulting Agency Comment Spec In Lab Yonathan Smith MD HEMATOLOGY ORDERABLES Performing Organization Address City/State/[place] [address] (ABNORMAL) Basic Metabolic Panel (non-fasting) (08/07/2017 7:30 AM EST) P athologist Signature Glucose Lvl 80 65 - 199 [facility] mg/dL [facility] LABORATORY Comment: Diabetes: >=200 mg/dL plus symp toms BUN 31 (H) 10 - 20 mg/dL [facility] LABORATORY Creatinine 1.22 0.80 - 1.50 mg/dL [facility] [...] [facility] LABORATORY Estimated GFR 59 (L) >=60 [facility] LABORATORY Comment: The reported eGFR should be multiplied b y 1.2 for patients. The MDRD is not an appropriate measure o f renal function for patients with body mass extremes or in patients with acute kidney failure. http://Eventfinda/DHnkdep http://Eventfinda/DHMCnkf Specimen Anatomical Collection Method Collection Time Receive d Time (Source) Location / / Volume Laterality Blood specimen 08/07/2017 7:30 AM 018 7:45 (specimen) EST AM EST Resulting Agency Comment Spec In Lab Yonathan Smith MD CHEMISTRY ORDERABLES Performing Organization Address City/[facility] Phon e Number [address] POCT Glucose (08/07/2017 7:27 AM EST) athologist Signature POC Glucose 81 65 - 199 [facility] mg/dL [facility] LABORATORY Comment: Supplemental ranges: <140 mg/dL before meals <180 mg/dL all other times of the day Specimen Anatomical Collection Method Collection Time Receive d Time (Source) Location / / Volume Laterality Blood specimen 08/07/2017 7:27 AM 018 7:27 (specimen) EST AM EST Yonathan Smith MD POINT OF CARE TEST ORDERABLE S Performing Organization Address [facility] Phon e Number [address] APTT (08/07/2017 7:04 AM [...] City/[facility]/[place] [address] (ABNORMAL) Prothrombin Time (08/07/2017 [...] Address City/State/[place] [address] POCT Glucose (08/07/2017 4:03 AM EST) athologist Signature POC Glucose 93 65 - 199 [facility]/dL [facility] LABORATORY Comment: Supplemental ranges: <140 mg/dL before meals <180 mg/dL all other times of the day Specimen Anatomical Collection Method Collection Time Receive d Time (Source) Location / / Volume Laterality Blood specimen 08/07/2017 4:03 AM 018 4:03 (specimen) EST AM EST Yonathan Smith MD POINT OF CARE TEST ORDERABLE S Performing Organization Address City/State/[place] [address] POCT Glucose (08/07/2017 12:04 AM EST) athologist Signature POC Glucose 107 65 - 199 [facility] mg/dL [facility] LABORATORY Comment: Supplemental ranges: <140 mg/dL before meals <180 mg/dL all other times of the day Specimen Anatomical Collection Method Collection Time Receive d Time (Source) Location / / Volume Laterality Blood specimen 08/07/2017 12:04 8 (specimen) AM EST 12:04 AM EST Yonathan Smith MD POINT OF CARE TEST ORDERABLE S Performing Organization Address City/State/ZIP Code Phon e Number [address] POCT Glucose (08/06/2017 7:56 PM EST) P athologist Signature POC Glucose 178 65 - 199 [facility] mg/dL [facility] LABORATORY Comment: Supplemental ranges: <140 mg/dL before meals <180 mg/dL all other times of the day Specimen Anatomical Collection Method Collection Time Receive d Time (Source) Location / / Volume Laterality Blood specimen 08/06/2017 7:56 PM 018 7:56 (specimen) EST PM EST Yonathan Smith MD POINT OF CARE TEST ORDERABLE S Performing Organization Address City/State/ZIP Code Phon e Number [address] TcPO2 (08/06/2017 2:32 PM EST) Component Value Ref Test Analysis Performed At Patholo gist Range Method Time Signature VB Text Department: Vascular Surgery Lab VASCUBASE Report Patient: [id number] (GREGORY HOANG) CPT: 5696563 ICD10: I99.8 Referring Physician: YONATHAN SMITH ?? [...] Henrique Marks RN)1733 (Given - Provider: Chiquis Mgcrath RN) 0506 (Given - Provider: Henrique Marks, [...] mg (COMPLETED) 1723 (Gi keke - Provider: Chqiuis Mcgrath RN) 2.5 mg, Oral, ONCE, 1 [...] 0454 (Given - P rovider: Henrique Marks RN)0819 (Given - Provider: Chiquis Mcgrath RN)1135 (Given [...]
Routine documented in this encounter Care Teams Chemical Research Technician Relationship Specialty Start Date End Date Lovely Vicente MD PCP - General 04/16/[address] [place] [address] [address] [place] [address] documented as of this encounter
--- OUTSIDE RECORDS SUMMARY | 2022-05-11 08:44 | XMS_ITS | Encounter Summary ---
:1945 Author Organization [facility] [place] [address] Care Team Providers Name Role Phone Lovely Vicente MD Primary Care Provider Reason for Visit Reason Comments Follow-up Encounter Details Date Type Department Care Team Description 08/19/2017 Office Visit Cardiac Surgery at [place], Jock S/P C ABG (coronary [facility] N, artery bypass graft) [facility], [facility] [place] CARDIOTHORACIC [address] SURGERY [phone] [place], [place] [address] Social History Tobacco Use Types [...] office. Best personal regards, Yuan [facility] MD [phone] documented in this encounter Plan of Treatment Upcoming Encounters Date Type Specialty Care Team Description 05/28/2022 Appointment Cardiology Zulma Dolan MD [facility] er [address] [place] [address] (Wo rk) 05/28/2022 Laboratory Appointment Lab 05/28/2022 Office Visit Cardiology Zulma Dolan MD [facility] [place] [address] Liz Poole PA [facility] [place] [address] 06/10/2022 Office Visit Dermatology Laura Scherer MD [facility] ER DR [address] [place] [address] (Wo rk) documented as of this encounter [...] 454 ms MUSE SYSTEM (Bezet) Calculated P [place] 20 degrees MUSE SYSTEM Calculated R [place] -29 degrees MUSE SYSTEM Calculated T [place] 121 degrees MUSE SYSTEM INTERPRETATION Normal sinus rhythm MUSE SYSTEM 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
--- OUTSIDE RECORDS SUMMARY | 2022-05-11 08:44 | XMS_ITS | Encounter Summary ---
:1945 Author Organization [place] [address] Care Team Providers Name Role Phone Lovely Vicente MD Primary Care Provider Reason for Referral Diagnostic Test (Routine) - Closed Specialty Diagnoses / Procedures Referred By Contact Refer red To Contact Cardiology Diagnoses Ischemic cardiomyopathy Acute on chronic systolic congestive heart failure Danette Maxwell APRN [facility] Non-Inv Card Lab Procedures Echocardiogram Transthoracic(Leb) [facility] [address] [place] [address] Referral ID Status Reason Start Date Expiration Date Visits V isits Requested Authorized [id number] Closed Specialty 08/30/2017 08/30/2018 1 1 Service Requested Encounter Details Date Type Department Care Team Description 08/26/2017 Office Visit Cardiology at [facility] Danette Maxwell Ischemic cardiomyopathy; [facility] STACIE Gomes Acute on chronic systolic congestive hea rt failure ; Drive [facility] ASCVD (arteriosclerotic card iovascular disease); [place], [place] PAF (paroxysmal atrial fibrillation); [address] CARDIOLOGY PAD (peripheral artery disease) [phone] [place], [place] [address] Social History Tobacco Use Types Packs/Day Years [...] painful 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 (Age): 1945(72y) Med Rec#: ? [id number] ?Sex: ?M ? Site Loc: ? [facility] ?Ht / Wt: ??173(cm)/82(kg) Pt. Loc: ?Echo Lab ?BSA: ?1.96 Study Date: ?? 10/07/2017 ?Pt. Type: Outpatient Tape: ? Referring: Danette Maxwell Reading: Iker Cuevas ([id number]) Medical Esthetician: Yonathan Bocanegra Diagnosis: *ICD-10-PCS Ischemic cardiomyopathy (I2 [...] E-wave Vmax ?1.2 ?m/sec ? MV deceleration [id number] ?msec ? MV A-wave Vmax ?1 ?m/sec [...] ? Mid-Inferior ?Hypokinetic ? Mid-Inferoseptal ?Hypokinetic ? [place]-Septal ? Akinetic ? [place]-Anterior ? Hypokinetic ? [place]-Lateral ?Hypokinetic ? [place]-Inferior ? Hypokinetic ? [place]-Tip ?Akinetic ? This report has been electronically sign ed by: _ Iker Cuevas M.D. ? 10/07/2017 11:12:34 Images reviewed and interpretation [facility] Cardiac Ultrasound Laboratory Procedure Note Iker Cuevas MD - 10/07/2017Formatti ng of this note might be different from the original. Procedure: Transthoracic Echocardiogram Patient: NATALYA Mccollum (Age): [birth year]72y) Med Rec#: [id number] Sex: M Site Loc: [facility] Ht / Wt: 173(cm)/82(kg) Pt. Loc: Echo Lab BSA: 1.96 Study Date: 10/07/2017 Pt. Type: Outpati ent Tape: Referring: Danette Maxwell Reading: Iker Cuevas ([id number]) Medical Esthetician: Yonathan Bocanegra Diagnosis: *ICD-10-PCS Ischemic cardiomyopathy (I2 [...] MV E-wave Vmax 1.2 m/sec MV deceleration [id number] msec MV A-wave Vmax 1 m/sec MV [...] Akinetic Mid-Posterolateral Hypokinetic Mid-Inferior Hypokinetic Mid-Inferoseptal Hypokinetic [place]-Septal Akinetic [place]-Anterior Hypokinetic [place]-Lateral Hypokinetic [place]-Inferior Hypokinetic [place]-Tip Akinetic This report has been electronically sign ed by: _ Iker Cuevas M.D. 10/07/2017 11:12 :34 Images reviewed and interpretation [facility] Cardiac Ultrasound Laboratory Danette Maxwell APRN ECHO ORDERABLES Basic Metabolic Panel (non-fasting) (08/26/2017 2:00 PM EST) P athologist Signature Glucose Lvl 98 65 - 199 [facility] mg/dL [facility] LABORATORY Comment: Diabetes: [...] or in patients with acute kidney failure. http://Referly/DHnkdep http://Referly/DHMCnkf Specimen Anatomical Collection Method Collection Time Receive d Time (Source) Location / / Volume Laterality Blood specimen 08/26/2017 2:00 PM 018 2:15 (specimen) EST PM EST Resulting Agency Comment Spec In Lab Danette Maxwell APRN CHEMISTRY ORDERABLES Performing Organization Address City/State/ZIP Code Phon e Number [address] (ABNORMAL) pro-Brain Natriuretic Peptide (08/26/2017 2:00 PM EST) P athologist Signature ProBNP 2,373 (H) <=125 [facility] RYAN pg/mL [facility] LABORATORY Specimen Anatomical [...] failure documented in this encounter Care Teams Gold Leaf Printer Relationship Specialty Start Date End Date Lovely Vicente MD PCP - General 04/16/15 [address] [place] [address] documented as of this encounter
--- OUTSIDE RECORDS SUMMARY | 2022-05-11 08:44 | XMS_ITS | Encounter Summary ---
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) [facility] [address] [place] VASCULAR SURGERY [address] [place] [address] [phone] Social History Tobacco Use Types Packs/Day Years [...] Zulma Dolan MD [facility] [place], [place] [address] (Wo rk) 05/28/2022 Laboratory Appointment Lab 05/28/2022 Office Visit Cardiology Zulma Dolan MD [facility] [place] [address] Liz Poole PA [facility] [place] [address] 06/10/2022 Office Visit Dermatology Laura Scherer MD [facility] [address] [place], [place] [address] (Wo rk) documented as of this encounter Visit Diagnoses Diagnosis PAD (peripheral artery disease) Peripheral vascular disease, unspecified documented in this encounter Care Teams Motor Vehicle Or Caravan Salesperson Relationship Specialty Start Date End Date Lovely Vicente MD PCP - General 04/16/[address] [place] [address] documented as of this encounter
--- OUTSIDE RECORDS SUMMARY | 2022-05-11 08:44 | XMS_ITS | Encounter Summary ---
:1945 Author Organization [facility] [place] [address] Care Team Providers Name Role Phone Lovely Vicente MD Primary Care Provider Encounter Details Date Type Department Care Team Description 08/25/2017 Telephone Pain Management at [facility] Bueno, [place] [address] Social History Tobacco Use Types Packs/Day [...] Management Center Preauthorization Request Patient: Don Fatima [id number] Fax received from [employer] denying prior authorization for Lidocaine Patches prescribed by Barbra Soares APRN. RX insurance plan: [employer] insurance telephone: [phone] Patient Diagnosis: right foot pain secondary to PVD and ischemia ? Previous medications attempted: Tylenol, Tramadol, Dilaudid Authorization/Reference number: [id number] _x_ denied, provider and patient informed _x_ appeal initiated by provider, patient informed Angeles Rodrigez, RN documented in this encounter Plan of Treatment Upcoming Encounters Date Type Specialty Care Team Description 05/28/2022 Appointment Cardiology Zulma Dolan MD [facility] [place], [place] [address] (Wo rk) 05/28/2022 Laboratory Appointment Lab 05/28/2022 Office Visit Cardiology Zulma Dolan MD [facility] [address] Liz Poole PA [facility] [place] [address] 06/10/2022 Office Visit Dermatology Laura Scherer MD [facility] [address] [place], [place] [address] (Wo rk) documented as of this encounter Visit Diagnoses Not on filedocumented in this encounter Care Teams Helix Coil Winder Relationship Specialty Start Date End Date Lovely Vicente MD PCP - General 04/16/[address] [place] [address] documented as of this encounter
--- OUTSIDE RECORDS SUMMARY | 2022-05-11 08:44 | XMS_ITS | Encounter Summary ---
:1945 Author Organization [facility] [place] [address] Care Team Providers Name Role Phone Lovely Vicente MD Primary Care Provider Encounter Details Date Type Department Care Team Description 08/19/2017 [place] En[place] [facility] [place], S/P CABG x 3 [address] [place] [facility] [place] [address] [place] [address] RD [phone] [facility] [place], [place] [address] (Wo rk) Social History [...] Zulma Dolan MD [facility] [place], [place] [address] (Wo rk) 05/28/2022 Laboratory Appointment Lab 05/28/2022 Office Visit Cardiology Zulma Dolan MD [facility] [place] [address] Liz Poole PA [facility] [place] [address] 06/10/2022 Office Visit Dermatology Laura Scherer MD [facility] [address] [place], [place] [address] (Wo rk) documented as of [...] 2017 EXAMINATION: XR CHEST PA AND LATERAL ([facility]) CLINICAL HISTORY: CABG x 3 TECHNIQUE: [...] status documented in this encounter Care Teams Delivery Person Relationship Specialty Start Date End Date Lovely Vicente MD PCP - General 04/16/[address] [place], [place] [address]Y [facility] [address] [place] [address] documented as of this encounter
--- OUTSIDE RECORDS SUMMARY | 2022-05-11 08:45 | XMS_ITS | Encounter Summary ---
:1945 Author Organization [facility] [place] [address] Care Team Providers Name Role Phone Lovely Vicente MD Primary Care Provider Reason for Visit Auth/Cert Specialty Diagnoses / Procedures Referred By Contact Refer red To Contact Diagnoses Critical lower limb ischemia CELLULITIS RT FOOT Procedures EMERGENCY Referral ID Status Reason Start Date Expiration Date Visits Requ ested Visits Authorized [id number] 1 1 Encounter Details Date Type Department Care Team Description 08/11/2017 Surgery Main Operating Room Yonathan Smith (M SURG) DRESSING CHANGE Barbara Ocampo MD (FOR OTHER THAN IVAN) [facility] UNDER ANES. 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 Patient [...] Dorsalis Pedis (Ankle) Artery ?132 ? 0.94 ??Baker-Biphasic ? Posterior Tibial (Ankle) Artery ??154 ? 1.10 ??Baker-Biphasic ? Fourth Toe ? 67 ?0.48 ?? [...] For any problems or questions please call [phone] ZELDA Smith, field placement director Nurse Clinician For issues on weeknights after 5pm and weekends please call [phone] and ask for the Vascular Fellow adult basic education manager. General Instructions None Future Appointments and Orders Future Appointments Provider Department Dept Phone 08/26/2017 4:00 PM Aurelia Rivera PA [facility] Surgery [facility] [place] [phone] 09/07/2017 3:00 PM LAB, THREE L Lab 3L [facility] [phone] 09/07/2017 4:00 PM Luz Prescott MD Endocrinology at [place] [phone] 09/09/2017 8:00 AM Barbra Soares APRN Pain Management [facility] [place] [phone] Please bring a list of your current [...] For any problems or questions please call [phone] ZELDA Smith, field placement director Nurse Clinician For issues on weeknights after 5pm and weekends please call [phone] and ask for the Vascular Fellow adult basic education manager. documented in this encounter Medications at [...] Note Patient Destination: [facility] ([facility]) [address] [place] [address] Transportation: with (at bedside) Time of Discharge: by 12 noon Level of Care: swing Patient Aware: yes Family Notified: yes Md to call report to: Yissel Quintero ARTIFICIAL FLOWER MAKER already called RN to call report to: [phone] Shirin Wolf Office of Care Management Pager [phone] Shirin Wagner RN - 08/16/2017 10:50 AM EST [facility] has offered pt swing bed. Pt and accept bed. will transport via car. ARTIFICIAL FLOWER MAKER Yissel Quintero aware; d/c paperwork will be completed by 12 noon. [facility] requests pt arrival by 1400 today; ARTIFICIAL FLOWER MAKER, RN, and family aware. ARTIFICIAL FLOWER MAKER called [facility] and was told that they prefer pt to arrive with wound vac dressing applied but clamped. ARTIFICIAL FLOWER MAKER applied new wound vac dressing. RN has [facility] number to call report. PASSR completed; ARTIFICIAL FLOWER MAKER paged to request provider signature in highlighted space. Indigo from [facility] notified via email that home wound vac now cancelled; [facility] has picked up from room and order cancelled. Packet started and provided to community service representative. Medicare important message explained to patient, patient signed. Copy provided to patient and signature page to OCM for inclusion in pt EMR. Radha Georges - 08/16/2017 10:34 AM EST Office of Care Management/Clinical Athletic Instructor Patient Name: Gregory Hoang : 1945 Patient has been offered a swing bed at [facility]. The patient will be transported by private transportation. No MD to MD report necessary Please call Nursing Report to [phone], ask for cycle touring guide. Info to accompany patient: Narcotic Prescriptions Copies of Medication Administration Records and IV sheets for past 10 days. Plan: Clinical Athletic Instructor will be available to the patient and Street Supervisor-RN and/or Medical Claims Examiner for further assistance. Patient will be discharged to: [facility] [address] [place] [address] [id number] Radha Powers, Clinical Athletic Instructor Mira Black, VAMSI - 08/15/2017 10:05 PM EST [address] Flores to ask if he wanted to hold metoprolol dose. BP 95/58. OK to hold this dose Courtney Brito - 08/15/2017 3:26 PM EST Office of Care Management(OCM)/Clinical Athletic Instructor(RS)/ D/C Planning re : Patient is medically [...] status. 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 Vac in place. Rehab [...] about patient's referral to: [facility] PHONE: [phone] FAX: [phone] CM spoke with RS who said that [...] rehab. Await recommendations from PT. Covering pager #[phone]. 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 Threshing Machine Operator Kaitlin Saha, RN Pager #[phone] Payam Rosales - 08/13/2017 2:37 PM EST Relocation Specialist Encounter Note Patient Name: Gregory Hoang : [id number] MR#: [id number] Admit Date: 08/06/2017 1:41 PM Hospital Day 7 days Narrative: Visited to introduce and assess acceptance of Relocation Specialist services. Pt was awake, alert, oriented and in chair and family was there. Assessment:Patient coping positively with stresses of illness/hospitalization at this time. Pt says that he is hoping to get better and his family was there. Pt says that he has family care and supportand taking one day at time. Intervention and Outcome: Provided emotional support and encouraging presence. 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 A letter describing our affiliations was reviewed with them and theywere educated about their right to choose where referrals are placed. Patient requests referral to [facility] [employer]. PHONE: [phone] FAX: [phone]. And Home NPWT (Negative Pressure Wound Therapy) aka wound vac device made available to pt. Serial # confirmed. Reviewed [facility] Proof of Delivery/Assignment of Benefits Statement(POD/AOB) Form w patient or authorized agent signing on behalf of patient. Copy of POD/AOB provided to pt and other copy faxed to [employer] @ fax# [phone] Expected date of discharge: 08/12/2017. 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 Address: [address] [place] [address] [place] [address] (home) Mobile: Telephone Information: Referring Provider: No [...] 7.93) performed by Yuan Retana MD at [facility] OR ??? 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 Unsuccessful draw attempt, another cutter brake lining will come [facility] to collect blood for PTT test. 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 Vascular resident adult basic education manager and will forward result to the team prior to rounds. 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 Patient [...] [facility] Functional Status/Social Hx: Quit [...] left blue toes with CTA showing R CNMT pseudoaneurysm (now thrombosed) and occluded ATs bilaterally. [...] 2.5x80 5. Completion RLE angiogram 6. L CNMT angiogram 7. 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 - L CNMT angriogram demonstrated: High femoral bifurcation over the proximal half of the femoral head. L CNMT access in the distal L CNMT. - Closure device: Mynx Technical Procedure: The [...] for a 45cm 5F Destination. V18 and [place] and QuickCross catheters were used to select [...] 5F. A stationed picture of the L CNMT was performed as the patient was noted to have a very high bifurcation. Access appeared in the distal R CNMT. Closure and sheath removal was performed with [...] PM EST 1440 report called to [place] nurse Tessa AGUSTIN documented in this encounter Miscellaneous Notes Plan of Care - Dory Truong RN - 08/16/2017 10:51 AM EST Problem: Patient Care Overview Goal: Plan of Care Review Outcome: Outcome (s) achieved Date Met: 08/16/17 08/14/17 1939 08/16/17 1601 Coping/Psychosocial Plan Of Care Reviewed With -- [...] sit/sit to supine -- Bed Mobility Goal, Hettinger Level independent -- Bed Mobility Goal, Date [...] days -- Transfer Training Goal, Activity Type jzf-am-agpmc/rsatk-eq-veb -- Transfer Train Goal, Hettinger Level conditional independence -- Transfer Train Goal, [...] call cabello within reach, Hourly rounding by RN/NO BAKE MOLDER. Bed alarm / Chair alarm. Patient-specific fall [...] Smith MD - 08/15/2017 6:28 PM EST [facility] Operative Note Patient Name: Gregory Hoang : [id number] MR#: [id number] Case Date: 08/09/2017 Surgeon: Surgeon(s) and Role: [...] 2.5x80 5. Completion RLE angiogram 6. L CNMT angiogram 7. Mynx closure Precautions/Restrictions: fall, sternal [...] other (see comments) (or swing bed) Pager: [phone] BASSAM ELIAS, PT 08/14/2017 Inpatient Physical Therapy [...] to Achieve by discharge Gait Training Goal, Hettinger Level conditional independence;set up required Gait Training [...] HOSPITAL. CM spoke with [facility] KANWAL Sandhu RN who said that they do not anticipate any beds over the weekend. Reviewed with patient/ that they need to be aware that patient will need to take the first bed offered at the facilities that they make referrals to. Their choices are: 1- [facility] PHONE: [phone] FAX: [phone] 2- [facility] ([facility]) [address] [place] [address] 3- [facility]) [address] [place] [address] I have discussed Medicare/Private Insurance [...] RS/CM on Wednesday to follow-up. Covering pager #[phone] for today. Plan of Care - Henrique [...] with additional findings of pseudoaneurysm on R CNMT and bilateral anterior tibial artery occlusions. Was [...] an outpatient once discharged. Have patient call [phone] to set up an appointment. Follow-up: Dermatology will sign-off for now. Please do not hesitate to contact us if you have any questions orconcerns. Impression and Recommendations discussed with primary team on 08/13/2017. Karo Henderson MD Resident in Dermatology Section of Dermatology, Department of Surgery [facility] Pager [phone] Patient seen and evaluated with staff Cnc Router Operator: Halima Cordero MD Section of Dermatology [place] [...] 2.5x80 5. Completion RLE angiogram 6. L CNMT angiogram 7. Mynx closure Active Non-Hospital Problems [...] home with home health ([facility] PT&OT) Pager: [phone] YASIR TELLO OT 08/12/2017 Occupational Therapy Rehabilitation [...] 2.5x80 5. Completion RLE angiogram 6. L CNMT angiogram 7. Mynx closure Past Medical History: [...] with 24/7 assistance and maximal services) Pager: [phone] NICHOLAS MORA, JESSIE 08/12/2017 Physical Therapy Rehabilitation [...] sit/sit to supine -- Bed Mobility Goal, Hettinger Level independent -- Bed Mobility Goal, Outcome Achieved -- goal ongoing Goal: Gait Training Goal Stand Alone Therapy Goal Outcome: Ongoing (Interventions Implemented as Appropriate) 08/11/17 1310 08/12/17 1510 Gait Training Goal Gait Training Goal, Date Established 08/11/17 -- Gait Training Goal, Time to Achieve 5 - 7 days -- Gait Training Goal, Hettinger Level conditional independence -- Gait Training Goal, [...] days -- Transfer Training Goal, Activity Type zzs-qo-audql/zdyup-we-dah -- Transfer Train Goal, Hettinger Level conditional independence -- Transfer Training Goal, [...] Smith MD - 08/11/2017 2:52 PM EST [facility] Operative Note Patient Name: Gregory Hoang : [id number] MR#: [id number] Case Date: 08/11/2017 Surgeon: Surgeon(s) and Role: [...] 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 Completion RLE angiogram 6. L CNMT angiogram 7. Mynx closure He is very [...] Anticipated Discharge Disposition: inpatient rehabilitation facility Pager: [phone] LAWRENCE GONZALEZ, PT 08/11/2017 Physical Therapy Rehabilitation [...] to sit/sit to supine Bed Mobility Goal, Hettinger Level independent Goal: Gait Training Goal Stand Alone Therapy Goal Outcome: Ongoing (Interventions Implemented as Appropriate) 08/11/17 1310 Gait Training Goal Gait Training Goal, Date Established 08/11/17 Gait Training Goal, Time to Achieve 5 - 7 days Gait Training Goal, Hettinger Level conditional independence Gait Training Goal, Assist [...] 7 days Transfer Training Goal, Activity Type btl-tb-kchld/qguyi-ah-aib Transfer Train Goal, Hettinger Level conditional independence Plan of Care - [...] call cabello within reach, Hourly rounding by RN/NO BAKE MOLDER. Bed alarm / Chair alarm. ? Patient-specific [...] 04/05/2013 Hospitalizations Within the Past 30 Days: [facility] 07/20/2017 Anticipated Length Of Stay (If known): Expected Length of Hospitalization: 5-7 days2-3 days Current Decision-Making Capacity: Alert and oriented x 4 Advance Care Planning: on file Kisha Hoang [facility] [phone] Current Coping/Education/Information Needs: pt and spouse state [...] Health/Prescription Coverage: Primary Insurance: MEDICARE Secondary Insurance: [employer] [place] Prescription Coverage: See above Preferred Pharmacy: [facility] Other: N/A Primary Care Provider: Lovely Vicente MD [phone] Patient/Caregiver Goals of Treatment: Patient plans to [...] of care planning. Kaitlin Saha RN Pager: [phone] Plan of Care - Melba Jaramillo RN [...] Overview Goal: Plan of Care Review 08/08/17 4744 Coping/Psychosocial Plan Of Care Reviewed With patient [...] call cabello within reach, Hourly rounding by RN/NO BAKE MOLDER. Bed alarm / Chair alarm. Patient-specific fall [...] at bedside and MD TEAM Carrying pager [phone] contacted (via Radio page) and notified of [...] Zulma Dolan MD [facility] [place], [place] [address] (Wo rk) 05/28/2022 Laboratory Appointment Lab 05/28/2022 Office Visit Cardiology Zulma Dolan MD [facility] [place] [address] Liz Poole PA [facility] [place] [address] 06/10/2022 Office Visit Dermatology Laura Scherer MD [facility] DR TEJA [address], [place] [address] (Wo rk) documented as of [...] 160 65 - 199 [place] mg/dL [facility] Comment: [...] Organization Address City/State/[place] [address] (ABNORMAL) Differential, Automated (08/16/2017 5:08 AM EST) [facility] Method Time Signature Neutrophils % 73.9 % [facility]OR[facility]ORY Neutr Abs (ANC) 5.37 1.70 - [facility] 6.10 [facility] x10(3)/[facility] LABORATORY Lymphocytes % 10.1 % [facility] Lymphocytes Abs 0.7 (L) 0.9 - 3.2 [facility] x10(3)/[facility] LABORATORY Monocytes % 10.1 % [facility] Monocyte Abs 0.7 0.3 - 0.9 [facility] x10(3)/[facility] LABORATORY Eosinophils % 5.1 % [facility] Eosinophils Abs 0.4 0.0 - 0.4 [facility] x10(3)/[facility] LABORATORY Basophils % 0.4 % [facility] Basophils Abs 0.0 0.0 - 0.1 [facility] x10(3)/[facility] LABORATORY Immature Gran % 0.40 % [...] 0.03 0.00 - 0.04 x10(3)/[facility] Y [facility] LABORATORY Specimen Anatomical Collection Method Collection Time Receive d Time (Source) Location / / Volume Laterality Blood specimen 08/16/2017 5:08 AM 018 5:20 (specimen) EST AM EST Resulting Agency Comment Spec In Lab Yonathan Smith MD HEMATOLOGY ORDERABLES Performing Organization Address City/State/[place] [address] (ABNORMAL) Hemogram (08/16/2017 5:08 AM EST) Analysis Performed At Patho logist Time Signature WBC 7.3 4.0 - 9.5 [place] x10(3)/[facility] LABORATORY RBC 3.36 (L) 4.58 - [place] 5.54 [facility] x10(6)/[facility] LABORATORY Hemoglobin 9.7 (L) 13.7 - [facility] 16.5 gm/dL [facility] Hematocrit 30.3 (L) 40.5 - [place] 48.5 % [facility]OR[facility]ORY MCV 90.2 82.9 - [facility] RYAN 93.1 [facility] LABORATORY MCH 28.9 27.5 - [place] 32.1 pg [facility] LABORATORY MCHC 32.0 32.0 - [place] 35.7 gm/dL [facility]ORY Platelets 282 145 - 357 [facility] x10(3)/[facility] LABORATORY RDWSD 53.9 (H) 36.0 - [place] 45.0 [facility] LABORATORY RDWCV 16.5 (H) 11.4 - [place] 13.8 % [facility] LABORATORY MPV 9.0 7.6 - 12.9 [place] [facility] LABORATORY nRBC % Auto 0.0 % [facility] nRBC Abs Auto 0.000 0.000 - [place] 0.000 [facility] x10(3)/[facility] LABORATORY Specimen Anatomical Collection Method Collection Time Receive d Time (Source) Location / / Volume Laterality Blood specimen 08/16/2017 5:08 AM 018 5:20 (specimen) EST AM EST Resulting Agency Comment Spec In Lab Yonathan Smith MD HEMATOLOGY ORDERABLES Performing Organization Address City/State/ZIP Code Phon e Number [place] [id number] (ABNORMAL) Basic Metabolic Panel (non-fasting) (08/16/2017 5:08 AM EST) P athologist Signature Glucose Lvl 141 65 - 199 [facility] mg/dL [facility] [...] CENTER LABORATORY Estimated GFR 57 (L) >=60 [facility] LAB[facility] Comment: The reported eGFR should be multiplied b y 1.2 for patients. The MDRD is not an appropriate measure o f renal function for patients with body mass extremes or in patients with acute kidney failure. http://BlueRoads/DHnkdep http://BlueRoads/DHMCnkf Specimen Anatomical Collection Method Collection Time Receive d Time (Source) Location / / Volume Laterality Blood specimen 08/16/2017 5:08 AM 018 5:20 (specimen) EST AM EST Resulting Agency Comment Spec In Lab Yonathan Smith MD CHEMISTRY ORDERABLES Performing Organization Address City/State/[place] [address] (ABNORMAL) Prothrombin Time (08/16/2017 [...] City/[facility]/ZIP Code Phon e Number [address] POCT Glucose (08/16/2017 4:09 AM EST) athologist Signature POC Glucose 147 65 - 199 [facility] mg/dL [facility] Comment: [...] City/[facility]/ZIP Code Phon e Number [address] POCT Glucose (08/15/2017 11:56 PM EST) athologist Signature POC Glucose 176 65 - 199 [facility] mg/dL [facility] Comment: [...] City/[facility]/ZIP Code Phon e Number [address] POCT Glucose (08/15/2017 8:05 PM EST) athologist Signature POC Glucose 136 65 - 199 [place] mg/dL [facility]ORY Comment: [...] Organization Address City/State/[place] [address] (ABNORMAL) POCT Glucose (08/15/2017 4:50 PM EST) athologist Signature POC Glucose 232 (H) 65 - 199 [facility] mg/dL [facility] Comment: [...] Organization Address City/State/[place] [address] POCT Glucose (08/15/2017 12:04 PM EST) athologist Signature POC Glucose 135 65 - 199 [place] mg/dL [facility] Comment: [...] Organization Address City/State/[place] [address] POCT Glucose (08/15/2017 7:36 AM EST) P athologist Signature POC Glucose 124 65 - 199 [facility] mg/dL [facility] [...] Organization Address City/State/[place] [address] (ABNORMAL) Differential, Automated (08/15/2017 6:22 AM EST) Patholo gist Method Time Signature Neutrophils % 76.1 % [facility]ORY Neutr Abs (ANC) 6.62 (H) 1.70 - [facility] 6.10 [facility] x10(3)/[facility] L LABORATORY Lymphocytes % 9.3 % [facility] LABORATORY Lymphocytes Abs 0.8 (L) 0.9 - 3.2 [facility] x10(3)/[facility] LABORATORY Monocytes % 9.4 % [facility] Monocyte Abs 0.8 0.3 - 0.9 [facility] x10(3)/[facility] LABORATORY Eosinophils % 4.0 % [facility] Eosinophils Abs 0.4 0.0 - 0.4 [facility] x10(3)/[facility] LABORATORY Basophils % 0.6 % [facility]OR[facility] Basophils Abs 0.0 0.0 - 0.1 [facility] x10(3)/[facility] LABORATORY Immature Gran % 0.60 % [facility] [...] Organization Address City/State/[place] [address] (ABNORMAL) Hemogram (08/15/2017 6:22 AM EST) Analysis Performed At Patho logist Time Signature WBC 8.7 4.0 - 9.5 [facility] x10(3)/[facility] LABORATORY RBC 3.21 (L) 4.58 - [facility] 5.54 [facility] x10(6)/[facility] LABORATORY Hemoglobin 9.1 (L) 13.7 - [facility] gm/dL [facility] LABORATORY Hematocrit 29.0 (L) 40.5 - [facility] 48.5 % [facility] MCV 90.3 82.9 - [facility] 93.1 [facility] LABORATORY MCH 28.3 27.5 - [facility] RYAN 32.1 pg [facility]ORY MCHC 31.4 (L) 32.0 - [facility] 35.7 gm/dL [facility]OR[facility]ORY Platelets 254 145 - 357 [facility] x10(3)/[facility] LABORATORY RDWSD 53.9 (H) 36.0 - [facility] RYAN 45.0 [facility] LABORATORY RDWCV 16.3 (H) 11.4 - [facility] RYAN 13.8 % [facility] LABORATORY MPV 8.8 7.6 - 12.9 [facility] LABORATORY nRBC % Auto 0.0 % [facility] LABORATORY nRBC Abs Auto 0.000 0.000 - [place] R[place] 0.000 [facility] x10(3)/[facility] LABORATORY Specimen Anatomical Collection Method Collection Time Receive d Time (Source) Location / / Volume Laterality Blood specimen 08/15/2017 6:22 AM 018 6:33 (specimen) EST AM EST Resulting Agency Comment Spec In Lab Yonathan Smith MD HEMATOLOGY ORDERABLES Performing Organization Address City/State/[place] [address] (ABNORMAL) Basic Metabolic Panel (non-fasting) (08/15/2017 6:22 AM EST) P athologist Signature Glucose Lvl 118 65 - 199 [facility] mg/dL [facility] [...] or in patients with acute kidney failure. [email or web address] Specimen Anatomical Collection Method Collection Time Receive d Time (Source) Location / / Volume Laterality Blood specimen 08/15/2017 6:22 AM 018 6:33 (specimen) EST AM EST Resulting Agency Comment Spec In Lab Yonathan Smith MD CHEMISTRY ORDERABLES Performing Organization Address City/State/[place] [address] (ABNORMAL) Prothrombin Time (08/15/2017 [...] City/[facility]/[place] [address] POCT Glucose (08/15/2017 4:33 AM EST) athologist Signature POC Glucose 164 65 - 199 [facility] mg/dL [facility]ORY Comment: [...] Organization Address City/State/[place] [address] POCT Glucose (08/15/2017 12:12 AM EST) athologist Signature POC Glucose 89 65 - 199 [facility] mg/dL [facility] Comment: [...] Organization Address City/State/[place] [address] (ABNORMAL) POCT Glucose (08/14/2017 8:07 PM EST) athologist Signature POC Glucose 204 (H) 65 - 199 [place] [facility] mg/dL [facility] LABORATORY Comment: [...] Organization Address City/State/[place] [address] POCT Glucose (08/14/2017 5:11 PM EST) athologist Signature POC Glucose 174 65 - 199 [place] [facility] mg/dL [facility] LAB[facility]ORY Comment: [...] Organization Address City/State/[place] [address] POCT Glucose (08/14/2017 12:10 PM EST) athologist Signature POC Glucose 141 65 - 199 [place] [facility] mg/dL [facility]ORY Comment: [...] Organization Address City/State/[place] [address] POCT Glucose (08/14/2017 8:07 AM EST) P athologist Signature POC Glucose 158 65 - 199 [facility] mg/dL [facility] Comment: [...] Organization Address City/State/[place] [address] (ABNORMAL) Differential, Automated (08/14/2017 4:52 AM EST) Patholo gist Method Time Signature Neutrophils % 78.6 % [facility] LABORATORY Neutr Abs (ANC) 7.70 (H) 1.70 - [facility] 6.10 [facility] x10(3)/[facility] L LABORATORY Lymphocytes % 7.8 % [facility] LABORATORY Lymphocytes Abs 0.8 (L) 0.9 - 3.2 [facility] x10(3)/[facility] LABORATORY Monocytes % 8.8 % [facility] LABORATORY Monocyte Abs 0.9 0.3 - 0.9 [facility] x10(3)/[facility] LABORATORY Eosinophils % 4.0 % [facility] LABORATORY Eosinophils Abs 0.4 0.0 - 0.4 [facility] x10(3)/[facility] LABORATORY Basophils % 0.5 % [facility] LABORATORY Basophils Abs 0.0 0.0 - 0.1 [facility] x10(3)/[facility] LABORATORY Immature Gran % 0.30 % [facility] [...] Mleisa Gran Abs 0.03 0.00 - 0.04 x10(3)/[facility] LABORATORY Specimen Anatomical Collection Method Collection Time Receive d Time (Source) Location / / Volume Laterality Blood specimen 08/14/2017 4:52 AM 018 5:08 (specimen) EST AM EST Resulting Agency Comment Spec In Lab Yonathan Smith MD HEMATOLOGY ORDERABLES Performing Organization Address City/State/[place] [address] (ABNORMAL) Hemogram (08/14/2017 4:52 AM EST) Analysis Performed At Patho logist Time Signature WBC 9.8 (H) 4.0 - 9.5 [facility] x10(3)/[facility] LABORATORY RBC 3.32 (L) 4.58 - [facility]54 [facility] x10(6)/[facility] LABORATORY Hemoglobin 9.5 (L) 13.7 - [facility] 16.5 gm/dL [facility] LABORATORY Hematocrit 30.3 (L) 40.5 - [facility] 48.5 % [facility] LABORATORY MCV 91.3 82.9 - [facility] 93.1 [facility] LABORATORY MCH 28.6 27.5 - [facility] RYAN 32.1 pg [facility] LABORATORY MCHC 31.4 (L) 32.0 - [facility] 35.7 gm/dL [facility] LABORATORY Platelets 263 145 - 357 [facility] x10(3)/[facility] LABORATORY RDWSD 54.8 (H) 36.0 - [place] 45.0 [facility] LABORATORY RDWCV 16.5 (H) 11.4 - [facility] 13.8 % [facility] LABORATORY MPV 9.1 7.6 - 12.9 [facility] LABORATORY nRBC % Auto 0.0 % [facility] LABORATORY nRBC Abs Auto 0.000 0.000 - [facility] 0.000 [facility] x10(3)/[facility] LABORATORY Specimen Anatomical Collection Method Collection Time Receive d Time (Source) Location / / Volume Laterality Blood specimen 08/14/2017 4:52 AM 018 5:08 (specimen) EST AM EST Resulting Agency Comment Spec In Lab Yonathan Smith MD HEMATOLOGY ORDERABLES Performing Organization Address City/State/[place] [address] (ABNORMAL) Prothrombin Time (08/14/2017 [...] Organization Address City/State/[place] [address] (ABNORMAL) Basic Metabolic Panel (non-fasting) (08/14/2017 4:52 AM EST) P athologist Signature Glucose Lvl 135 65 - 199 [facility] mg/dL [facility] [...] CENTER LABORATORY Estimated GFR 52 (L) >=60 [facility] LAB[facility] Comment: The reported eGFR should be multiplied b y 1.2 for patients. The MDRD is not an appropriate measure o f renal function for patients with body mass extremes or in patients with acute kidney failure. [email or web address] Specimen Anatomical Collection Method Collection Time Receive d Time (Source) Location / / Volume Laterality Blood specimen 08/14/2017 4:52 AM 018 5:08 (specimen) EST AM EST Resulting Agency Comment Spec In Lab Yonathan Smith MD CHEMISTRY ORDERABLES Performing Organization Address City/State/[place] [address] POCT Glucose (08/14/2017 3:56 AM EST) P athologist Signature POC Glucose 135 65 - 199 [facility] mg/dL [facility] [...] Address City/State/ZIP Code Phon e Number [address] POCT Glucose (08/13/2017 11:13 PM EST) athologist Signature POC Glucose 118 65 - 199 [place] [facility] mg/dL [facility] LABORATORY Comment: [...] City/[facility]/[place] [address] (ABNORMAL) POCT Glucose (08/13/2017 8:08 PM EST) athologist Signature POC Glucose 204 (H) 65 - 199 [place] mg/dL [facility] LABORATORY Comment: [...] Organization Address City/State/[place] [address] POCT Glucose (08/13/2017 4:02 PM EST) athologist Signature POC Glucose 145 65 - 199 [place] [facility] mg/dL [facility] LABORATORY Comment: [...] Organization Address City/State/[place] [address] POCT Glucose (08/13/2017 11:31 AM EST) athologist Signature POC Glucose 179 65 - 199 [facility] mg/dL [facility] LABORATORY Comment: [...] City/[facility]/[place] [address] (ABNORMAL) POCT Glucose (08/13/2017 10:16 AM EST) athologist Signature POC Glucose 211 (H) 65 - 199 [facility] mg/dL [facility] LABORATORY Comment: [...] City/[facility]/[place] [address] JULIAN, legs, multiple levels (08/13/2017 7:42 AM EST) Component Value Ref Test Analysis Performed At Patholo gist Range Method Time Signature VB Text Department: Vascular Surgery Lab VASCUBASE Report Patient: [id number] (GREGORY HOANG) CPT: 24326 ICD10: I99.8 Referring Physician: YONATHAN SMITH ?? Indications: s/p R 1,2,3 toe amps with red left foot, need n ew baseline Diabetes mellitus: yes ICD10 Diagnosis Code: I99.8 Findings: Right ?Pressure (mm Hg) ?? JULIAN ??Waveform ?TBI ?? Brachial Artery ?138 ? Dorsalis Pedis (Ankle) Arter y ?132 ? 0.94 ??Baker- Biphasic ? Posterior Tibial (Ankle) Art anila ??154 ? 1.10 ??Baker-Biphasic ? Fourth Toe ? 67 ? 0.48 [...] Glucose 156 65 - 199 [facility] mg/dL [facility] [...] City/State/ZIP Code Phon e Number [place] [id number]OS[address] LAB[address]ORY Drive (ABNORMAL) Differential, Automated (08/13/2017 5:33 AM EST) [facility] Method Time Signature Neutrophils % 77.8 % [facility] LABORATORY Neutr Abs (ANC) 7.83 (H) 1.70 - [facility] 6.10 [facility] x10(3)/[facility] L LABORATORY Lymphocytes % 8.4 % [facility] LABORATORY Lymphocytes Abs 0.8 (L) 0.9 - 3.2 [facility] x10(3)/[facility] LABORATORY Monocytes % 8.3 % [facility] LABORATORY Monocyte Abs 0.8 0.3 - 0.9 [facility] x10(3)/[facility] LABORATORY Eosinophils % 4.6 % [facility] LABORATORY Eosinophils Abs 0.5 (H) 0.0 - 0.4 [facility] x10(3)/[facility] LABORATORY Basophils % 0.5 % [facility] LABORATORY Basophils Abs 0.0 0.0 - 0.1 [facility] x10(3)/[facility] LABORATORY Immature Gran % 0.40 % [facility] [...] 0.04 0.00 - 0.04 x10(3)/[facility] LABORATORY Specimen Anatomical Collection Method Collection Time Receive d Time (Source) Location / / Volume Laterality Blood specimen 08/13/2017 5:33 AM 018 6:04 (specimen) EST AM EST Resulting Agency Comment Spec In Lab Yonathan Smith MD HEMATOLOGY ORDERABLES Performing Organization Address City/State/[place] [address] (ABNORMAL) Hemogram (08/13/2017 5:33 AM EST) Analysis Performed At Patho logist Time Signature WBC 10.1 (H) 4.0 - 9.5 [facility] x10(3)/[facility] LABORATORY RBC 3.21 (L) 4.58 - [facility] 5.54 [facility] x10(6)/[facility] LABORATORY Hemoglobin 9.2 (L) 13.7 - [facility] 16.5 gm/dL [facility] LABORATORY Hematocrit 29.6 (L) 40.5 - [facility] 48.5 % [facility] LABORATORY MCV 92.2 82.9 - [facility] 93.1 [facility] LABORATORY MCH 28.7 27.5 - [facility] pg [facility] LABORATORY MCHC 31.1 (L) 32.0 - [facility] 35.7 gm/dL [facility] LABORATORY Platelets 263 145 - 357 [facility] x10(3)/[facility] LABORATORY RDWSD 54.8 (H) 36.0 - [facility] 45.0 [facility] LABORATORY RDWCV 16.4 (H) 11.4 - [facility] 13.8 % [facility] LABORATORY MPV 9.2 7.6 - 12.9 [facility] LABORATORY nRBC % Auto 0.0 % [facility] LABORATORY nRBC Abs Auto 0.000 0.000 - [facility] 0.000 [facility] x10(3)/[facility] LABORATORY Specimen Anatomical Collection Method Collection Time Receive d Time (Source) Location / / Volume Laterality Blood specimen 08/13/2017 5:33 AM 018 6:04 (specimen) EST AM EST Resulting Agency Comment Spec In Lab Yonathan Smith MD HEMATOLOGY ORDERABLES Performing Organization Address City/State/[place] [address] (ABNORMAL) Prothrombin Time (08/13/2017 [...] Organization Address City/State/[place] [address] (ABNORMAL) Basic Metabolic Panel (non-fasting) (08/13/2017 5:33 AM EST) athologist Signature Glucose Lvl 126 65 - 199 [facility] mg/dL [facility] [...] [place] [facility] LABORATORY Comment: The reported eGFR should be multiplied b y 1.2 for patients. The MDRD is not an appropriate measure o f renal function for patients with body mass extremes or in patients with acute kidney failure. [email or web address] Specimen Anatomical Collection Method Collection Time Receive d Time (Source) Location / / Volume Laterality Blood specimen 08/13/2017 5:33 AM 018 6:04 (specimen) EST AM EST Resulting Agency Comment Spec In Lab Yonathan Smith MD CHEMISTRY ORDERABLES Performing Organization Address City/[facility]/ZIP Code Phon e Number [address] POCT Glucose (08/13/2017 4:29 AM EST) athologist Signature POC Glucose 111 65 - 199 [facility] mg/dL [facility] LABORATORY Comment: [...] City/[facility]/ZIP Code Phon e Number [address] POCT Glucose (08/12/2017 11:28 PM EST) athologist Signature POC Glucose 164 65 - 199 [facility] mg/dL [facility] LABORATORY Comment: [...] City/[facility]/[place] [address] (ABNORMAL) POCT Glucose (08/12/2017 7:40 PM EST) athologist Signature POC Glucose 209 (H) 65 - 199 [place] mg/dL [facility] LABORATORY Comment: [...] Address City/State/ZIP Code Phon e Number [address] POCT Glucose (08/12/2017 4:24 PM EST) athologist Signature POC Glucose 161 65 - 199 [facility] mg/dL [facility] LABORATORY Comment: [...] Organization Address City/State/[place] [address] POCT Glucose (08/12/2017 12:00 PM EST) athologist Signature POC Glucose 167 65 - 199 [place] mg/dL [facility] LABORATORY Comment: [...] Organization Address City/State/[place] [address] POCT Glucose (08/12/2017 7:25 AM EST) P athologist Signature POC Glucose 152 65 - 199 [facility] mg/dL [facility] [...] City/State/ZIP Code Phon e Number [place] [id number]OSPITAL LAB[address] Drive (ABNORMAL) Differential, Automated (08/12/2017 6:29 AM EST) Patholo gist Method Time Signature Neutrophils % 78.7 % [facility] LABORATORY Neutr Abs (ANC) 7.94 (H) 1.70 - [facility] 6.10 [facility] x10(3)/[facility] LABORATORY Lymphocytes % 8.8 % [facility] LABORATORY Lymphocytes Abs 0.9 0.9 - 3.2 [facility] x10(3)/[facility] LABORATORY Monocytes % 7.8 % [facility] LABORATORY Monocyte Abs 0.8 0.3 - 0.9 [facility] x10(3)/[facility] LABORATORY Eosinophils % 3.9 % [facility] LABORATORY Eosinophils Abs 0.4 0.0 - 0.4 [facility] x10(3)/[facility] LABORATORY Basophils % 0.3 % [facility] LABORATORY Basophils Abs 0.0 0.0 - 0.1 [facility] x10(3)/[facility] LABORATORY Immature Gran % 0.50 % [facility] [...] Organization Address City/State/[place] [address] (ABNORMAL) Hemogram (08/12/2017 6:29 AM EST) Analysis Performed At Patho logist Time Signature WBC 10.1 (H) 4.0 - 9.5 [facility] x10(3)/[facility] LABORATORY RBC 3.02 (L) 4.58 - [facility] 5.54 [facility] x10(6)/[facility] LABORATORY Hemoglobin 8.7 (L) 13.7 - [facility] 16.5 gm/dL [facility] LABORATORY Hematocrit 28.1 (L) 40.5 - [facility] 48.5 % [facility] LABORATORY MCV 93.0 82.9 - [facility] 93.1 [facility] LABORATORY MCH 28.8 27.5 - [facility] 32.1 pg [facility] LABORATORY MCHC 31.0 (L) 32.0 - [facility] 35.7 gm/dL [facility] LABORATORY Platelets 223 145 - 357 [facility] x10(3)/[facility] LABORATORY RDWSD 56.1 (H) 36.0 - [facility] RYAN 45.0 [facility] LABORATORY RDWCV 16.4 (H) 11.4 - [facility] RYAN 13.8 % [facility] LABORATORY MPV 9.0 7.6 - 12.9 [facility] LABORATORY nRBC % Auto 0.0 % [facility] LABORATORY nRBC Abs Auto 0.000 0.000 - [place] [facility] 0.000 [facility] x10(3)/[facility] LABORATORY Specimen Anatomical Collection Method Collection Time Receive d Time (Source) Location / / Volume Laterality Blood specimen 08/12/2017 6:29 AM 018 6:38 (specimen) EST AM EST Resulting Agency Comment Spec In Lab Yonathan Smith MD HEMATOLOGY ORDERABLES Performing Organization Address City/[facility]/[place] [address] (ABNORMAL) Prothrombin Time (08/12/2017 [...] Organization Address City/State/[place] [address] (ABNORMAL) Basic Metabolic Panel (non-fasting) (08/12/2017 6:29 AM EST) athologist Signature Glucose Lvl 151 65 - 199 [facility] mg/dL [facility] [...] or in patients with acute kidney failure. [email or web address] Specimen Anatomical Collection Method Collection Time Receive d Time (Source) Location / / Volume Laterality Blood specimen 08/12/2017 6:29 AM 018 6:38 (specimen) EST AM EST Resulting Agency Comment Spec In Lab Yonathan Smith MD CHEMISTRY ORDERABLES Performing Organization Address City/[facility]/[place] [address] POCT Glucose (08/12/2017 4:08 AM EST) athologist Signature POC Glucose 181 65 - 199 [facility] mg/dL [facility] LABORATORY Comment: [...] City/[facility]/[place] [address] (ABNORMAL) POCT Glucose (08/12/2017 12:17 AM EST) athologist Signature POC Glucose 221 (H) 65 - 199 [facility] mg/dL [facility] LABORATORY Comment: [...] City/[facility]/[place] [address] (ABNORMAL) POCT Glucose (08/11/2017 8:52 PM EST) athologist Signature POC Glucose 221 (H) 65 - 199 [facility] mg/dL [facility] LABORATORY Comment: [...] City/[facility]/[place] [address] POCT Glucose (08/11/2017 5:59 PM EST) athologist Signature POC Glucose 169 65 - 199 [facility] mg/dL [facility] LABORATORY Comment: [...] Organization Address City/State/[place] [address] (ABNORMAL) POCT Glucose (08/11/2017 4:08 PM EST) athologist Signature POC Glucose 240 (H) 65 - 199 [facility] mg/dL [facility] LABORATORY Comment: [...] City/[facility]/ZIP Code Phon e Number [address] POCT Glucose (08/11/2017 12:04 PM EST) athologist Signature POC Glucose 182 65 - 199 [facility] mg/dL [facility] LABORATORY Comment: [...] City/[facility]/ZIP Code Phon e Number [address] POCT Glucose (08/11/2017 7:31 AM EST) athologist Signature POC Glucose 156 65 - 199 [facility] mg/dL [facility] LABORATORY Comment: [...] City/[facility]/ZIP Code Phon e Number [address] (ABNORMAL) Differential, Automated (08/11/2017 6:16 AM EST) [facility] Method Time Signature Neutrophils % 83.7 % [facility] LABORATORY Neutr Abs (ANC) 10.76 (H) 1.70 - [facility] 6.10 [facility] x10(3)/mc [facility]PITAL L LABORATORY Lymphocytes % 6.0 % [facility] LABORATORY Lymphocytes Abs 0.8 (L) 0.9 - 3.2 [facility] x10(3)/[facility] LABORATORY Monocytes % 7.5 % [facility] LABORATORY Monocyte Abs 1.0 (H) 0.3 - 0.9 [facility] x10(3)/[facility] LABORATORY Eosinophils % 2.0 % [facility] LABORATORY Eosinophils Abs 0.3 0.0 - 0.4 [facility] x10(3)/[facility] LABORATORY Basophils % 0.3 % [facility] LABORATORY Basophils Abs 0.0 0.0 - 0.1 [facility] x10(3)/[facility] LABORATORY Immature Gran % 0.50 % [facility] [...] Organization Address City/State/[place] [address] (ABNORMAL) Hemogram (08/11/2017 6:16 AM EST) Analysis Performed At Patho logist Time Signature WBC 12.9 (H) 4.0 - 9.5 [facility] x10(3)/[facility] LABORATORY RBC 3.28 (L) 4.58 - [facility] 5.54 [facility] x10(6)/[facility] LABORATORY Hemoglobin 9.5 (L) 13.7 - [facility] 16.5 gm/dL [facility] LABORATORY Hematocrit 29.8 (L) 40.5 - [facility] 48.5 % [facility] LABORATORY MCV 90.9 82.9 - [facility] RYAN 93.1 [facility] LABORATORY MCH 29.0 27.5 - BARBAR[place] OLIVASCK 32.1 pg [facility] LABORATORY MCHC 31.9 (L) 32.0 - BARBARA DAVIS 35.7 gm/dL [facility] LABORATORY Platelets 236 145 - 357 [facility] x10(3)/[facility] LABORATORY RDWSD 53.5 (H) 36.0 - BARBARA DAVIS 45.0 [facility] LABORATORY RDWCV 16.3 (H) 11.4 - [facility] RYAN 13.8 % [facility] LABORATORY MPV 8.8 7.6 - 12.9 [facility] LABORATORY nRBC % Auto 0.0 % [facility] LABORATORY nRBC Abs Auto 0.000 0.000 - [facility] RYAN 0.000 [facility] x10(3)/[facility] LABORATORY Specimen Anatomical Collection Method Collection Time Receive d Time (Source) Location / / Volume Laterality Blood specimen 08/11/2017 6:16 AM 018 6:24 (specimen) EST AM EST Resulting Agency Comment Spec In Lab Yonathan Smith MD HEMATOLOGY ORDERABLES Performing Organization Address City/State/[place] [address] (ABNORMAL) Prothrombin Time (08/11/2017 [...] Organization Address City/State/[place] [address] Basic Metabolic Panel (non-fasting) (08/11/2017 6:16 AM EST) P athologist Signature Glucose Lvl 139 65 - 199 [facility] mg/dL [facility] [...] or in patients with acute kidney failure. [email or web address] Specimen Anatomical Collection Method Collection Time Receive d Time (Source) Location / / Volume Laterality Blood specimen 08/11/2017 6:16 AM 018 6:24 (specimen) EST AM EST Resulting Agency Comment Spec In Lab Yonahtan Smith MD CHEMISTRY ORDERABLES Performing Organization Address City/State/ZIP Code Phon e Number [address] POCT Glucose (08/11/2017 4:07 AM EST) athologist Signature POC Glucose 162 65 - 199 [place] RYAN mg/dL [facility] LABORATORY Comment: [...] City/[facility]/ZIP Code Phon e Number [address] POCT Glucose (08/10/2017 11:59 PM EST) athologist Signature POC Glucose 166 65 - 199 [place] RYAN mg/dL [facility] LABORATORY Comment: [...] Address City/State/ZIP Code Phon e Number [address] POCT Glucose (08/10/2017 8:12 PM EST) athologist Signature POC Glucose 156 65 - 199 [place] RYAN mg/dL [facility] LABORATORY Comment: [...] City/State/ZIP Code Phon e Number [place] [id number] HOSPITAL LABORATORY Drive (ABNORMAL) POCT Glucose (08/10/2017 4:42 PM EST) P athologist Signature POC Glucose 211 (H) 65 - 199 [facility] mg/dL [facility] LABORATORY Comment: [...] Address City/State/ZIP Code Phon e Number [address] (ABNORMAL) Differential, Automated (08/10/2017 2:30 PM EST) Patholo gist Method Time Signature Neutrophils % 87.6 % [facility] LABORATORY Neutr Abs (ANC) 9.90 (H) 1.70 - [facility] 6.10 [facility] x10(3)/[facility] L LABORATORY Lymphocytes % 4.3 % [facility] LABORATORY Lymphocytes Abs 0.5 (L) 0.9 - 3.2 [facility] x10(3)/[facility] LABORATORY Monocytes % 6.0 % [facility] LABORATORY Monocyte Abs 0.7 0.3 - 0.9 [facility] x10(3)/[facility] LABORATORY Eosinophils % 1.1 % [facility] LABORATORY Eosinophils Abs 0.1 0.0 - 0.4 [facility] x10(3)/[facility] LABORATORY Basophils % 0.4 % [facility] LABORATORY Basophils Abs 0.0 0.0 - 0.1 [facility] x10(3)/[facility] LABORATORY Immature Gran % 0.60 % [facility] [...] Organization Address City/State/[place] [address] (ABNORMAL) Hemogram (08/10/2017 2:30 PM EST) Analysis Performed At Patho logist Time Signature WBC 11.3 (H) 4.0 - 9.5 [facility] x10(3)/[facility] LABORATORY RBC 3.13 (L) 4.58 - [facility] 5.54 [facility] x10(6)/[facility] LABORATORY Hemoglobin 8.9 (L) 13.7 - [facility]/dL [facility] LABORATORY Hematocrit 28.4 (L) 40.5 - [facility] 48.5 % [facility] LABORATORY MCV 90.7 82.9 - [facility] 93.1 [facility] LABORATORY MCH 28.4 27.5 - [facility] 32.1 pg [facility] LABORATORY MCHC 31.3 (L) 32.0 - [facility] 35.7 gm/dL [facility] LABORATORY Platelets 213 145 - 357 [facility] x10(3)/[facility] LABORATORY RDWSD 53.7 (H) 36.0 - [facility] RYAN 45.0 [facility] LABORATORY RDWCV 16.4 (H) 11.4 - [facility] RYAN 13.8 % [facility] LABORATORY MPV 8.9 7.6 - 12.9 [facility] LABORATORY nRBC % Auto 0.0 % [facility] LABORATORY nRBC Abs Auto 0.000 0.000 - [facility] [employer] 0.000 [facility] x10(3)/[facility] LABORATORY Specimen Anatomical Collection Method Collection Time Receive d Time (Source) Location / / Volume Laterality Blood specimen 08/10/2017 2:30 PM 018 2:48 (specimen) EST PM EST Resulting Agency Comment Spec In Lab Yonathan Smith MD HEMATOLOGY ORDERABLES Performing Organization Address City/[facility]/ZIP Code Phon e Number [address] (ABNORMAL) POCT Glucose (08/10/2017 1:50 PM EST) athologist Signature POC Glucose 243 (H) 65 - 199 [facility] mg/dL [facility] LABORATORY Comment: [...] City/[facility]/ZIP Code Phon e Number [address] POCT Glucose (08/10/2017 11:21 AM EST) athologist Signature POC Glucose 156 65 - 199 [facility] mg/dL [facility] LABORATORY Comment: [...] City/[facility]/ZIP Code Phon e Number [address] (ABNORMAL) Differential, Automated (08/10/2017 10:28 AM EST) [facility] Method Time Signature Neutrophils % 85.3 % [facility] LABORATORY Neutr Abs (ANC) 9.43 (H) 1.70 - [facility] 6.10 [facility] x10(3)/[facility] L LABORATORY Lymphocytes % 5.5 % [facility] LABORATORY Lymphocytes Abs 0.6 (L) 0.9 - 3.2 [facility] x10(3)/[facility] LABORATORY Monocytes % 5.9 % [facility] LABORATORY Monocyte Abs 0.6 0.3 - 0.9 [facility] x10(3)/[facility] LABORATORY Eosinophils % 2.1 % [facility] LABORATORY Eosinophils Abs 0.2 0.0 - 0.4 [facility] x10(3)/[facility] LABORATORY Basophils % 0.4 % [facility] LABORATORY Basophils Abs 0.0 0.0 - 0.1 [facility] x10(3)/[facility] LABORATORY Immature Gran % 0.80 % [facility] [...] Organization Address City/State/[place] [address] (ABNORMAL) Hemogram (08/10/2017 10:28 AM EST) Analysis Performed At Patho logist Time Signature WBC 11.0 (H) 4.0 - 9.5 [facility] x10(3)/[facility] LABORATORY RBC 3.02 (L) 4.58 - [facility] 5.54 [facility] x10(6)/[facility] LABORATORY Hemoglobin 8.8 (L) 13.7 - [facility] 16.5 gm/dL [facility] LABORATORY Hematocrit 28.1 (L) 40.5 - BARBAR[place] DAVIS 48.5 % [facility] LABORATORY MCV 93.0 82.9 - BARBAR[place] DAVIS 93.1 [facility] LABORATORY MCH 29.1 27.5 - BARBARA OLIVASCK 32.1 pg [facility] LABORATORY MCHC 31.3 (L) 32.0 - BARBARA DAVIS 35.7 gm/dL [facility] LABORATORY Platelets 207 145 - 357 BARBARA ZHAORYAN x10(3)/[facility] LABORATORY RDWSD 55.3 (H) 36.0 - BARBARA DAVIS 45.0 [facility] LABORATORY RDWCV 16.4 (H) 11.4 - [place] RYAN 13.8 % [facility] LABORATORY MPV 9.0 7.6 - 12.9 [facility] LABORATORY nRBC % Auto 0.0 % [facility] nRBC Abs Auto 0.000 0.000 - BARBARA DAVIS 0.000 [facility] x10(3)/[facility] LABORATORY Specimen Anatomical Collection Method Collection Time Receive d Time (Source) Location / / Volume Laterality Blood specimen 08/10/2017 10:28 8 (specimen) AM EST 10:35 AM EST Resulting Agency Comment Spec In Lab Yonathan Smith MD HEMATOLOGY ORDERABLES Performing Organization Address City/State/[place] [address] VS Angiogram/intervention (vascular) (08/10/2017 [...] 2.5x80 5. Completion RLE angiogram 6. L CNMT angiogram 7. 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 - L CNMT angriogram demonstrated: High fe moral bifurcation over the proximal half of the femoral head. L CNMT access in the distal L CNMT. - Closure device: Mynx Technical Procedure: ?The [...] for a 45cm 5F Destination. V18 and [place] a nd QuickCross catheters were used to [...] bifurcation. Access appeared in the distal R CNMT. Closure and sheath removal was performed with [...] 2.5x80 5. Completion RLE angiogram 6. L CNMT angiogram 7. 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 - L CNMT angriogram demonstrated: High fe moral bifurcation over the proximal half of the femoral head. L CNMT access in the distal L CNMT. - Closure device: Mynx Technical Procedure: The [...] for a 45cm 5F Destination. V18 and [place] a nd QuickCross catheters were used to [...] bifurcation. Access appeared in the distal R CNMT. Closure and sheath removal was performed with [...] Automated (08/10/2017 5:50 AM EST) [facility] Method Time Signature Neutrophils % 80.1 % [facility] LABORATORY Neutr Abs (ANC) 9.01 (H) 1.70 - [facility] 6.10 [facility] x10(3)/[facility] LABORATORY Lymphocytes % 8.8 % [facility] LABORATORY Lymphocytes Abs 1.0 0.9 - 3.2 [facility] x10(3)/[facility] LABORATORY Monocytes % 8.3 % [facility] LABORATORY Monocyte Abs 0.9 0.3 - 0.9 [facility] x10(3)/[facility] LABORATORY Eosinophils % 2.0 % [facility] LABORATORY Eosinophils Abs 0.2 0.0 - 0.4 [facility] x10(3)/[facility] LABORATORY Basophils % 0.4 % [facility] LABORATORY Basophils Abs 0.0 0.0 - 0.1 [facility] x10(3)/[facility] LABORATORY Immature Gran % 0.40 % [facility] [...] Organization Address City/State/[place] [address] (ABNORMAL) Hemogram (08/10/2017 5:50 AM EST) Analysis Performed At Patho logist Time Signature WBC 11.3 (H) 4.0 - 9.5 [facility] x10(3)/[facility] LABORATORY RBC 3.15 (L) 4.58 - [place] RYAN 5.54 [facility] x10(6)/[facility] LABORATORY Hemoglobin 8.9 (L) 13.7 - [facility] 16.[facility] gm/dL [facility] LABORATORY Hematocrit 29.0 (L) 40.5 - [facility] RYAN 48.5 % [facility] LABORATORY MCV 92.1 82.9 - [facility] RYAN 93.1 [facility] LABORATORY MCH 28.3 27.5 - [facility] RYAN 32.1 pg [facility] LABORATORY MCHC 30.7 (L) 32.0 - [facility] RYAN 35.7 gm/dL [facility] LABORATORY Platelets 231 145 - 357 [facility] x10(3)/[facility] RDWSD 53.9 (H) 36.0 - [facility] RYAN 45.0 [facility] LABORATORY RDWCV 16.2 (H) 11.4 - [facility] RYAN 13.8 % [facility] LABORATORY MPV 8.7 7.6 - 12.9 [facility] LABORATORY nRBC % Auto 0.0 % [facility] LABORATORY nRBC Abs Auto 0.000 0.000 - [facility] 0.000 [facility] x10(3)/[facility] LABORATORY Specimen Anatomical Collection Method Collection Time Receive d Time (Source) Location / / Volume Laterality Blood specimen 08/10/2017 5:50 AM 018 5:59 (specimen) EST AM EST Resulting Agency Comment Spec In Lab Yonathan Smith MD HEMATOLOGY ORDERABLES Performing Organization Address City/State/[place] [address] (ABNORMAL) Basic Metabolic Panel (non-fasting) (08/10/2017 5:50 AM EST) P athologist Signature Glucose Lvl 135 65 - 199 [facility] mg/dL [facility] [...] or in patients with acute kidney failure. [email or web address] Specimen Anatomical Collection Method Collection Time Receive d Time (Source) Location / / Volume Laterality Blood specimen 08/10/2017 5:50 AM 018 5:59 (specimen) EST AM EST Resulting Agency Comment Spec In Lab Yonathan Smith MD CHEMISTRY ORDERABLES Performing Organization Address [facility] [place] [address] (ABNORMAL) Prothrombin Time (08/10/2017 [...] HEMATOLOGY ORDERABLES Performing Organization Address City/[facility] [place] [address] (ABNORMAL) POCT Glucose (08/10/2017 4:01 AM EST) athologist Signature POC Glucose 206 (H) 65 - 199 [facility] mg/dL [facility] [...] Address City/State/ZIP Code Phon e Number [address] POCT Glucose (08/10/2017 2:01 AM EST) athologist Signature POC Glucose 188 65 - 199 BAR[place] ZHAORYAN mg/dL [facility] LABORATORY Comment: [...] City/[facility]/[place] [address] (ABNORMAL) POCT Glucose (08/09/2017 11:42 PM EST) athologist Signature POC Glucose 283 (H) 65 - 199 [place] ZHAORYAN mg/dL [facility] LABORATORY Comment: [...] Organization Address City/State/[place] [address] POCT Glucose (08/09/2017 8:55 PM EST) athologist Signature POC Glucose 182 65 - 199 BARBAR[place] ZHAORYAN mg/dL [facility] LABORATORY Comment: [...] City/[facility]/[place] [address] (ABNORMAL) APTT (08/09/2017 6:42 [...] City/[facility]/[place] [address] POCT Glucose (08/09/2017 4:41 PM EST) athologist Signature POC Glucose 195 65 - 199 [facility] mg/dL [facility] LABORATORY Comment: [...] City/[facility]/[place] [address] POCT Glucose (08/09/2017 12:29 PM EST) athologist Signature POC Glucose 140 65 - 199 [facility] mg/dL [facility] LABORATORY Comment: Supplemental ranges: <140 mg/dL before meals <180 mg/dL all other times of the day Specimen Anatomical Collection Method Collection Time Receive d Time (Source) Location / / Volume Laterality Blood specimen 08/09/2017 12:29 8 (specimen) PM EST 12:29 PM EST Yonathan Smith MD POINT OF CARE TEST ORDERABLE S Performing Organization Address [facility]/ZIP Code Phon e Number [address] POCT Glucose (08/09/2017 9:59 AM EST) P athologist Signature POC Glucose 135 65 - 199 [facility] mg/dL [facility] LABORATORY Comment: Supplemental ranges: <140 mg/dL before meals <180 mg/dL all other times of the day Specimen Anatomical Collection Method Collection Time Receive d Time (Source) Location / / Volume Laterality Blood specimen 08/09/2017 9:59 AM 018 9:59 (specimen) EST AM EST Yonathan Smith MD POINT OF CARE TEST ORDERABLE S Performing Organization Address [facility]/ZIP Code Phon e Number [address] Specimen to Pathology (08/09/2017 [...] City/[facility]/[place] [address] Surgical Pathology Report (08/09/2017 8:40 AM EST) Component Value Ref Test Analysis Performed At Patholo gist Range Method Time Signature Surgical [id number] ? Location: [facility]; [facility]; [facility] Report The signing pathologist has (i) [...] Henrique Flower Verified: ??08/13/2017 ?Pathologist Performed at: ??-[facility] Dept. of Pathology, [place], [place] CLINICAL INFORMATION Specimen Submitted: A - [...] Organization Address City/State/[place] [address] Anaerobic Culture (08/09/2017 8:30 AM EST) [facility] [employer] Method Time Signature Anaerobic No anaerobic [facility] Culture organisms [facility] LABORATORY Specimen Anatomical Collection Method Collection Time [...] City/[facility]/[place] [address] (ABNORMAL) Abscess/Wound Aspirate Culture (08/09/2017 8:30 AM EST) [facility] Method Time Signature Abscess/Wound Moderate mixed [facility] Aspirate bacterial CHURUBUSCO Culture morphotypes [facility] normal LABORATORY cutaneous leroy (A) Gram Stain Rare White Blood Cells BARBAR[place] Few Gram Positive Cocci in pairs [facility] () [facility] LABORATORY Organism Gram Positive [place] Cocci in pairs [facility] () [facility] LABORATORY Specimen Anatomical [...] City/[facility]/ZIP Code Phon e Number [place] [id number] HOSPITAL LAB[address] POCT Glucose (08/09/2017 4:28 AM EST) P athologist Signature POC Glucose 128 65 - 199 [facility] mg/dL [facility] LABORATORY Comment: [...] Organization Address City/State/[place] [address] ABORH Recheck Status (08/09/2017 1:10 AM EST) [facility] Method Time [...] City/[facility]/[place] [address] Antibody screen (08/09/2017 1:10 AM EST) [facility] Method Time Signature Ab Screen Negative [facility] LABORATORY Expires at 08/12/2017 [facility] [id number] on: [facility] LABORATORY Specimen Anatomical Collection Method Collection Time Receive d Time (Source) Location / / Volume Laterality Blood specimen 08/09/2017 1:10 AM 018 1:35 (specimen) EST AM EST Resulting Agency Comment Spec In Lab Yonathan Smith MD BLOOD BANK ORDERABLES Performing Organization Address City/[facility]/[place] [address] ABO/Rh Typing (08/09/2017 1:10 [...] City/[facility]/[place] [address] (ABNORMAL) APTT (08/09/2017 1:10 [...] Organization Address City/State/[place] [address] (ABNORMAL) Differential, Automated (08/09/2017 1:10 AM EST) [facility] gist Method Time Signature Neutrophils % 76.2 % [facility] LABORATORY Neutr Abs (ANC) 8.59 (H) 1.70 - [facility] 6.10 [facility] x10(3)/[facility] LABORATORY Lymphocytes % 11.0 % [facility] LABORATORY Lymphocytes Abs 1.2 0.9 - 3.2 [facility] x10(3)/[facility] LABORATORY Monocytes % 8.4 % [facility] LABORATORY Monocyte Abs 1.0 (H) 0.3 - 0.9 [facility] x10(3)/[facility] LABORATORY Eosinophils % 3.5 % [facility] LABORATORY Eosinophils Abs 0.4 0.0 - 0.4 [facility] x10(3)/[facility] LABORATORY Basophils % 0.5 % [facility] LABORATORY Basophils Abs 0.1 0.0 - 0.1 [facility] x10(3)/[facility] LABORATORY Immature Gran % 0.40 % [facility] [...] Organization Address City/State/[place] [address] (ABNORMAL) Hemogram (08/09/2017 1:10 AM EST) Analysis Performed At Patho logist Time Signature WBC 11.3 (H) 4.0 - 9.5 [facility] x10(3)/[facility] LABORATORY RBC 3.47 (L) 4.58 - [facility] 5.54 [facility] x10(6)/[facility] LABORATORY Hemoglobin 10.0 (L) 13.7 - [facility] 16.5 gm/dL [facility] LABORATORY Hematocrit 31.9 (L) 40.5 - [facility] 48.5 % [facility] LABORATORY MCV 91.9 82.9 - [facility] 93.1 [facility] LABORATORY MCH 28.8 27.5 - [facility] RYAN 32.1 pg [facility] LABORATORY MCHC 31.3 (L) 32.0 - [facility] 35.7 gm/dL [facility] LABORATORY Platelets 234 145 - 357 [facility] x10(3)/[facility] LABORATORY RDWSD 54.0 (H) 36.0 - [facility] RYAN 45.0 [facility] LABORATORY RDWCV 16.2 (H) 11.4 - [facility] 13.8 % [facility] LABORATORY MPV 8.7 7.6 - 12.9 [facility] LABORATORY nRBC % Auto 0.0 % [facility] LABORATORY nRBC Abs Auto 0.000 0.000 - [place] RYAN 0.000 [facility] x10(3)/[facility] LABORATORY Specimen Anatomical Collection Method Collection Time Receive d Time (Source) Location / / Volume Laterality Blood specimen 08/09/2017 1:10 AM 018 1:19 (specimen) EST AM EST Resulting Agency Comment Spec In Lab Yonathan Smith MD HEMATOLOGY ORDERABLES Performing Organization Address [facility] [place] [address] (ABNORMAL) Prothrombin Time (08/09/2017 [...] HEMATOLOGY ORDERABLES Performing Organization Address [facility] [place] [address] (ABNORMAL) Basic Metabolic Panel (non-fasting) (08/09/2017 1:10 AM EST) athologist Signature Glucose Lvl 108 65 - 199 [facility] [facility]ITAL mg/dL [facility] [...] CENTER LABORATORY Estimated GFR 45 (L) >=60 [facility] Comment: The reported eGFR should be multiplied b y 1.2 for patients. The MDRD is not an appropriate measure o f renal function for patients with body mass extremes or in patients with acute kidney failure. [email or web address]/DHnkdep http://BlueRoads/DHMCnkf Specimen Anatomical Collection Method Collection Time Receive d Time (Source) Location / / Volume Laterality Blood specimen 08/09/2017 1:10 AM 018 1:19 (specimen) EST AM EST Resulting Agency Comment Spec In Lab Yonathan Smith MD CHEMISTRY ORDERABLES Performing Organization Address City/State/ZIP Code Phon e Number [address] POCT Glucose (08/09/2017 12:05 AM EST) athologist Signature POC Glucose 128 65 - 199 [facility] mg/dL [facility] [...] Organization Address City/State/[place] [address] (ABNORMAL) POCT Glucose (08/08/2017 7:36 PM EST) athologist Signature POC Glucose 215 (H) 65 - 199 [facility] LABORATORY Comment: [...] City/[facility]/[place] [address] (ABNORMAL) POCT Glucose (08/08/2017 6:23 PM EST) athologist Signature POC Glucose 216 (H) 65 - 199 [facility] mg/dL [facility] [...] City/[facility]/[place] [address] (ABNORMAL) APTT (08/08/2017 6:00 [...] City/[facility]/ZIP Code Phon [place] [facility] [address] POCT Glucose (08/08/2017 4:42 PM EST) athologist Signature POC Glucose 78 65 - 199 [facility]/dL [facility] LABORATORY Comment: [...] Organization Address City/State/[place] [address] (ABNORMAL) POCT Glucose (08/08/2017 4:01 PM EST) athologist Signature POC Glucose 58 (L) 65 - 199 [facility] mg/dL [facility] LABORATORY Comment: [...] Organization Address City/State/[place] [address] POCT Glucose (08/08/2017 11:51 AM EST) athologist Signature POC Glucose 90 65 - 199 [facility] mg/dL [facility] LABORATORY Comment: [...] Organization Address City/State/[place] [address] (ABNORMAL) APTT (08/08/2017 10:27 [...] City/[facility]/ZIP Code Phon e Number [address] POCT Glucose (08/08/2017 8:02 AM EST) athologist Signature POC Glucose 178 65 - 199 [facility] mg/dL [facility] [...] City/[facility]/[place] [address] (ABNORMAL) APTT (08/08/2017 4:51 AM EST) athologist Signature PTT >160 25 - 35 [facility] (Critical) sec [facility] LABORATORY Comment: Called by: HOWARD, Read [...] Organization Address City/State/[place] [address] (ABNORMAL) Differential, Automated (08/08/2017 4:51 AM EST) [facility] gist Method Time Signature Neutrophils % 77.9 % [facility] LABORATORY Neutr Abs (ANC) 8.17 (H) 1.70 - [facility] 6.10 [facility] x10(3)/[facility] LABORATORY Lymphocytes % 10.3 % [facility] LABORATORY Lymphocytes Abs 1.1 0.9 - 3.2 [facility] x10(3)/[facility] LABORATORY Monocytes % 7.0 % [facility] LABORATORY Monocyte Abs 0.7 0.3 - 0.9 [facility] x10(3)/[facility] LABORATORY Eosinophils % 3.6 % [facility] LABORATORY Eosinophils Abs 0.4 0.0 - 0.4 [facility] x10(3)/[facility] LABORATORY Basophils % 0.5 % [facility] LABORATORY Basophils Abs 0.0 0.0 - 0.1 [facility] x10(3)/[facility] LABORATORY Immature Gran % 0.70 % [facility] [...] Address City/State/ZIP Code Phon e Number [address] (ABNORMAL) Hemogram (08/08/2017 4:51 AM EST) Analysis Performed At Patho logist Time Signature WBC 10.5 (H) 4.0 - 9.5 [facility] x10(3)/[facility] LABORATORY RBC 3.27 (L) 4.58 - [place] 5.54 [facility] x10(6)/[facility] LABORATORY Hemoglobin 9.3 (L) 13.7 - [facility] 16.5 gm/dL [facility] LABORATORY Hematocrit 30.3 (L) 40.5 - [facility] 48.5 % [facility] LABORATORY MCV 92.7 82.9 - [facility] 93.1 [facility] LABORATORY MCH 28.4 27.5 - [place] 32.1 pg [facility] LABORATORY MCHC 30.7 (L) 32.0 - [place] 35.7 gm/dL [facility] LABORATORY Platelets 252 145 - 357 [facility] x10(3)/[facility] LABORATORY RDWSD 54.6 (H) 36.0 - [place] 45.0 [facility] LABORATORY RDWCV 16.2 (H) 11.4 - [facility] RYAN 13.8 % [facility] LABORATORY MPV 9.1 7.6 - 12.9 [facility] LABORATORY nRBC % Auto 0.0 % [facility] LABORATORY nRBC Abs Auto 0.000 0.000 - [place] 0.000 [facility] x10(3)/[facility] LABORATORY Specimen Anatomical Collection Method Collection Time Receive d Time (Source) Location / / Volume Laterality Blood specimen 08/08/2017 4:51 AM 018 5:14 (specimen) EST AM EST Resulting Agency Comment Spec In Lab Yonathan Smith MD HEMATOLOGY ORDERABLES Performing Organization Address City/State/[place] [address] (ABNORMAL) Prothrombin Time (08/08/2017 [...] Organization Address City/State/[place] [address] (ABNORMAL) Basic Metabolic Panel (non-fasting) (08/08/2017 4:51 AM EST) athologist Signature Glucose Lvl 229 (H) 65 - 199 [facility] mg/dL [facility] [...] or in patients with acute kidney failure. [email or web address] [email or web address]/DHMCnkf Specimen Anatomical Collection Method Collection Time Receive d Time (Source) Location / / Volume Laterality Blood specimen 08/08/2017 4:51 AM 018 5:14 (specimen) EST AM EST Resulting Agency Comment Spec In Lab Yonathan Smith MD CHEMISTRY ORDERABLES Performing Organization Address City/[facility]/ZIP Code Phon e Number [address] POCT Glucose (08/08/2017 4:20 AM EST) athologist Signature POC Glucose 193 65 - 199 [facility]/dL [facility] LABORATORY Comment: [...] City/[facility]/ZIP Code Phon e Number [address] POCT Glucose (08/07/2017 11:11 PM EST) athologist Signature POC Glucose 124 65 - 199 [facility] mg/dL [facility] LABORATORY Comment: [...] City/[facility]/[place] [address] (ABNORMAL) APTT (08/07/2017 10:18 [...] Organization Address City/State/[place] [address] POCT Glucose (08/07/2017 8:10 PM EST) athologist Signature POC Glucose 140 65 - 199 [facility] mg/dL [facility] LABORATORY Comment: [...] Organization Address City/State/[place] [address] POCT Glucose (08/07/2017 5:27 PM EST) athologist Signature POC Glucose 187 65 - 199 [facility] mg/dL [facility] LABORATORY Comment: [...] City/[facility]/[place] [address] POCT Glucose (08/07/2017 3:29 PM EST) athologist Signature POC Glucose 86 65 - 199 [facility] mg/dL [facility] LABORATORY Comment: Supplemental ranges: <140 mg/dL before meals <180 mg/dL all other times of the day Specimen Anatomical Collection Method Collection Time Receive d Time (Source) Location / / Volume Laterality Blood specimen 08/07/2017 3:29 PM 018 3:29 (specimen) EST PM EST Yonathan Smith MD POINT OF CARE TEST ORDERABLE S Performing Organization Address [facility] [place] [address] (ABNORMAL) APTT (08/07/2017 2:50 [...] ORDERABLES Performing Organization Address City/[facility]/ZIP [facility] [place] [address] (ABNORMAL) POCT Glucose (08/07/2017 2:23 PM EST) athologist Signature POC Glucose 55 (L) 65 - 199 [place] mg/dL [facility] LABORATORY Comment: [...] Address City/State/ZIP Code Phon e Number [address] POCT Glucose (08/07/2017 12:08 PM EST) P athologist Signature POC Glucose 77 65 - 199 [facility] mg/dL [facility] LABORATORY Comment: [...] Organization Address City/State/[place] [address] (ABNORMAL) Differential, Automated (08/07/2017 7:30 AM EST) Patholo gist Method Time Signature Neutrophils % 73.8 % [facility] LABORATORY Neutr Abs (ANC) 7.17 (H) 1.70 - [facility] 6.10 [facility] x10(3)/[facility] LABORATORY Lymphocytes % 12.2 % [facility] LABORATORY Lymphocytes Abs 1.2 0.9 - 3.2 [facility] x10(3)/[facility] LABORATORY Monocytes % 9.0 % [facility] LABORATORY Monocyte Abs 0.9 0.3 - 0.9 [facility] x10(3)/[facility] LABORATORY Eosinophils % 3.9 % [facility] LABORATORY Eosinophils Abs 0.4 0.0 - 0.4 [facility] x10(3)/[facility] LABORATORY Basophils % 0.6 % [facility] LABORATORY Basophils Abs 0.1 0.0 - 0.1 [facility] x10(3)/[facility] LABORATORY Immature Gran % 0.50 % [facility] [...] City/State/ZIP Code Phon e Number [place] [id number] HOSPITAL LABORATORY Drive (ABNORMAL) Hemogram (08/07/2017 7:30 AM EST) Analysis Performed At Patho logist Time Signature WBC 9.7 (H) 4.0 - 9.5 [facility] x10(3)/[facility] LABORATORY RBC 3.54 (L) 4.58 - [facility] 5.54 [facility] x10(6)/[facility] LABORATORY Hemoglobin 9.9 (L) 13.7 - [facility] 16.5 gm/dL [facility] LABORATORY Hematocrit 32.3 (L) 40.5 - [facility] 48.5 % [facility] LABORATORY MCV 91.2 82.9 - [facility] 93.1 [facility] LABORATORY MCH 28.0 27.5 - [facility] 32.1 pg [facility] LABORATORY MCHC 30.7 (L) 32.0 - [facility] 35.7 gm/dL [facility] LABORATORY Platelets 312 145 - 357 [facility] x10(3)/[facility] LABORATORY RDWSD 53.2 (H) 36.0 - [facility] 45.0 [facility] RDWCV 16.0 (H) 11.4 - [facility] 13.8 % [facility] LABORATORY MPV 8.9 7.6 - 12.9 [facility] LABORATORY nRBC % Auto 0.0 % [facility] LABORATORY nRBC Abs Auto 0.000 0.000 - [facility] 0.000 [facility] x10(3)/[facility] LABORATORY Specimen Anatomical Collection Method Collection Time Receive d Time (Source) Location / / Volume Laterality Blood specimen 08/07/2017 7:30 AM 018 7:45 (specimen) EST AM EST Resulting Agency Comment Spec In Lab Yonathan Smith MD HEMATOLOGY ORDERABLES Performing Organization Address City/State/[place] [address] (ABNORMAL) Basic Metabolic Panel (non-fasting) (08/07/2017 7:30 AM EST) athologist Signature Glucose Lvl 80 65 - 199 [facility] mg/dL [facility] [...] CENTER LABORATORY Estimated GFR 59 (L) >=60 [facility] Comment: The reported eGFR should be multiplied b y 1.2 for patients. The MDRD is not an appropriate measure o f renal function for patients with body mass extremes or in patients with acute kidney failure. http://BlueRoads/DHnkdep http://BlueRoads/[facility] Specimen Anatomical Collection Method Collection Time Receive d Time (Source) Location / / Volume Laterality Blood specimen 08/07/2017 7:30 AM 018 7:45 (specimen) EST AM EST Resulting Agency Comment Spec In Lab Yonathan Smith MD CHEMISTRY ORDERABLES Performing Organization Address City/[facility]/ZIP [facility] Phon e Number [address] POCT Glucose (08/07/2017 7:27 AM EST) athologist Signature POC Glucose 81 65 - 199 [facility] mg/dL [facility] LABORATORY Comment: Supplemental ranges: <140 mg/dL before meals <180 mg/dL all other times of the day Specimen Anatomical Collection Method Collection Time Receive d Time (Source) Location / / Volume Laterality Blood specimen 08/07/2017 7:27 AM 018 7:27 (specimen) EST AM EST Yonathan Smith MD POINT OF CARE TEST ORDERABLE S Performing Organization Address City/[facility] Phon e Number [address] APTT (08/07/2017 7:04 AM [...] Organization Address City/State/[place] [address] (ABNORMAL) Prothrombin Time (08/07/2017 [...] Organization Address City/State/[place] [address] POCT Glucose (08/07/2017 4:03 AM EST) athologist Signature POC Glucose 93 65 - 199 [facility] mg/dL [facility] LABORATORY Comment: [...] Organization Address City/State/[place] [address] POCT Glucose (08/07/2017 12:04 AM EST) athologist Signature POC Glucose 107 65 - 199 [facility] mg/dL [facility] LABORATORY Comment: [...] City/[facility]/ZIP Code Phon e Number [address] POCT Glucose (08/06/2017 7:56 PM EST) P athologist Signature POC Glucose 178 65 - 199 [facility] mg/dL [facility] [...] Address City/State/ZIP Code Phon e Number [address] TcPO2 (08/06/2017 2:32 PM EST) Component Value Ref Test Analysis Performed At Patholo gist Range Method Time Signature VB Text Department: Vascular Surgery Lab VASCUBASE Report Patient: [id number] (GREGORY HOANG) CPT: 8323494 ICD10: I99.8 Referring Physician: YONATHAN SMITH ?? [...] Marks, RN) 0502 (Given - Provider: Henrique aMrks, RN) 0631 (G iven - Provider: Mira [...] documented in this encounter Care Teams Plastic Surgery Specialist Relationship Specialty Start Date End Date Lovely Vicente MD PCP - General 04/16/[address] [place] [address] [address] [place] [address] documented as of this encounter
--- OUTSIDE RECORDS SUMMARY | 2022-05-11 08:45 | XMS_ITS | Encounter Summary ---
:1945 Author Organization [facility] [place] [address] Care Team Providers Name Role Phone Lovely Vicente MD Primary Care Provider Encounter Details Date Type Department Care Team Description 08/09/2017 Clinical Support [place] [facility] [place]anceled (D-SCHED ERROR [facility] / CORRECT [place]ON ) [place] [address] Social History Tobacco Use Types Packs/Day [...] MD [facility] [place], [place] [address] (Wo rk) 05/28/2022 Laboratory Appointment Lab 05/28/2022 Office Visit Cardiology Zulma Dolan MD [facility] [place] [address] Liz Poole PA [facility] [place] [address] 06/10/2022 Office Visit Dermatology Laura Scherer MD [facility] [address] [place], [place] [address] (Wo rk) documented as of this encounter Procedures Procedure Name Priority Date/Time Associated Diagnosis Comme nts FOOD SERVICE COORDINATOR 08/09/2017 12:00 AM Resul ts for this SCAN EST procedure are i n the results section. documented in this encounter Results SCAN DOC: FOOD SERVICE COORDINATOR (08/09/2017 12:00 AM EST) Narrative 08/09/2017 12:00 AM EST This result has an attachment that is no t available. Ordered by an unspecified provider. Scanning Provider MEDIA MGR SCAN EXT ORDR/RSLT documented in this encounter Visit Diagnoses Not on filedocumented in this encounter Care Teams Active Directory Architect Relationship Specialty Start Date End Date Lovely Vicente MD PCP - General 04/16/[address] [place] [address] documented as of this encounter
--- OUTSIDE RECORDS SUMMARY | 2022-05-11 08:46 | XMS_ITS | Encounter Summary ---
:1945 Author Organization [facility] [place] [address] Care Team Providers Name Role Phone Lovely Vicente MD Primary Care Provider Reason for Visit Reason Comments Foot Ulcer WOUND CHECK Auth/Cert Specialty Diagnoses / Procedures Referred By Contact Refer red To Contact Diagnoses Critical lower limb ischemia CELLULITIS RT FOOT Procedures EMERGENCY Referral ID Status Reason Start Date Expiration Date Visits Requ ested Visits Authorized [id number] 1 1 Encounter Details Date Type Department Care Team Description 08/06/2017 [facility] ischemia [facility] [address] [place], [place] VASCULAR SURGERY [id number] [place] [address] [phone] Social History Tobacco Use Types Packs/Day Years [...] Smith MD - 08/06/2017 1:00 PM EST [facility] staff: 1. RIGHT leg CLI Interval [...] Dolan MD [facility] [address] [place], [place] [address] (Wo ) 05/28/2022 Laboratory Appointment Lab 05/28/2022 Office Visit Cardiology Zulma Dolan MD [facility] [place] [address] Liz Poole PA [facility] [place] [address] 06/10/2022 Office Visit Dermatology Laura Scherer MD [facility] ER [address] [place], [place] [address] (Wo rk) documented as of this encounter Visit Diagnoses Diagnosis Critical lower limb ischemia Unspecified circulatory system disorder documented in this encounter Care Teams Rn Lvn Relationship Specialty Start Date End Date Lovely Vicente MD PCP - General 04/16/[address] [place], [place] [id number] documented as of this encounter
--- OUTSIDE RECORDS SUMMARY | 2022-05-11 08:46 | XMS_ITS | Encounter Summary ---
:1945 Author Organization [facility] [place] [address] Care Team Providers Name Role Phone Lovely Vicente MD Primary Care Provider Encounter Details Date Type Department Care Team Description 08/06/2017 Orders Only Vascular Surgery at [facility] [place] APRN Ischemia of foot [facility] [place] [address] VASCULAR SURGERY [phone] [place], [place] [address] (Wo rk) Social History Tobacco [...] [facility] [place], [place] [address] (Wo rk) 05/28/2022 Laboratory Appointment Lab 05/28/2022 Office Visit Cardiology Zulma [place]olan [place] [address] Liz Poole PA [facility] [place] [address] 06/10/2022 Office Visit Dermatology Laura Scherer MD [facility] ER DR [address] [place], [place] [...] 444 ms MUSE SYSTEM (Bezet) Calculated P Ellery 44 degrees MUSE SYSTEM Calculated R Ellery -31 degrees MUSE SYSTEM Calculated T Ellery 106 degrees MUSE SYSTEM INTERPRETATION Normal sinus [...] - 40 [place] mg/dL [facility] [...] Organization Address City/State/[place] [address] (ABNORMAL) Basic Metabolic Panel (non-fasting) (08/06/2017 12:32 PM EST) athologist Signature Glucose Lvl 92 65 - 199 [facility] mg/dL [facility] LABORATORY [...] in patients with acute kidney failure. http://[employer]/DHnkdep http://[employer]/DHMCnkf Specimen Anatomical Collection Method Collection Time Receive d Time (Source) Location / / Volume Laterality Blood specimen 08/06/2017 12:32 8 1:15 (specimen) PM EST PM EST Resulting Agency Comment Spec In Lab Arik Clement MD CHEMISTRY ORDERABLES Performing Organization Address City/State/[place] [address] (ABNORMAL) Hemogram (08/06/2017 12:32 PM EST) Analysis Performed At Patho logist Time Signature WBC 11.8 (H) 4.0 - 9.5 [facility] x10(3)/[facility] LABORATORY RBC 3.49 (L) 4.58 - [facility] 5.54 [facility] x10(6)/[facility] LABORATORY Hemoglobin 9.9 (L) 13.7 - [facility] 16.5 gm/dL [facility] LABORATORY Hematocrit 32.0 (L) 40.5 - [facility] 48.5 % [facility] LABORATORY MCV 91.7 82.9 - [facility] 93.1 [facility] LABORATORY MCH 28.4 27.5 - [facility] 32.1 pg [facility] LABORATORY MCHC 30.9 (L) 32.0 - [facility] 35.7 gm/dL [facility] LABORATORY Platelets 326 145 - 357 [facility] x10(3)/[facility] LABORATORY RDWSD 53.4 (H) 36.0 - [facility] 45.0 [facility] LABORATORY RDWCV 16.0 (H) 11.4 - [facility] 13.8 % [facility] LABORATORY MPV 9.1 7.6 - 12.9 [facility] LABORATORY nRBC % Auto 0.0 % [facility] LABORATORY nRBC Abs Auto 0.000 0.000 - [facility] 0.000 [facility] x10(3)/[facility] LABORATORY Specimen Anatomical Collection Method Collection Time Receive d Time (Source) Location / / Volume Laterality Blood specimen 08/06/2017 12:32 8 1:15 (specimen) PM EST PM EST Resulting Agency Comment Spec In Lab Arik Clement MD HEMATOLOGY ORDERABLES Performing Organization Address City/State/[place] [address] documented in this encounter Visit Diagnoses Diagnosis Ischemia of foot Unspecified circulatory system disorder documented in this encounter Care Teams Concrete Engineer Relationship Specialty Start Date End Date Lovely Vicente MD PCP - General 04/16/[address] [place] [address] documented as of this encounter
--- OUTSIDE RECORDS SUMMARY | 2022-05-11 08:46 | XMS_ITS | Encounter Summary ---
:1945 Author Organization [facility] [place] [address] Care Team Providers Name Role Phone Lovely Vicente MD Primary Care Provider Reason for Visit Auth/Cert Specialty Diagnoses / Procedures Referred By Contact Refer red To Contact Diagnoses Critical lower limb ischemia CELLULITIS RT FOOT Procedures EMERGENCY Referral ID Status Reason Start Date Expiration Date Visits Requ ested Visits Authorized [id number] 1 1 Encounter Details Date Type Department Care Team Description 08/06/2017 [facility] [address] Social History Tobacco Use Types Packs/Day [...] Dolan MD [facility] [address] [place], [place] [address] (Wo rk) 05/28/2022 Laboratory Appointment Lab 05/28/2022 Office Visit Cardiology Zulma Dolan MD [facility] [place] [address] Liz Poole PA [facility] [place] [address] 06/10/2022 Office Visit Dermatology Laura Scherer MD [facility] [address] [place], [place] [address] (Wo rk) documented as of this encounter Visit Diagnoses Not on filedocumented in this encounter Care Teams Culturist Relationship Specialty Start Date End Date Lovely Vicente MD PCP - General 04/16/[address] [place] [address] documented as of this encounter
--- OUTSIDE RECORDS SUMMARY | 2022-05-11 08:46 | XMS_ITS | Encounter Summary ---
:1945 [place] [address] Care Team Providers Name Role Phone Lovely Vicente MD Primary Care Provider Encounter Details Date Type Department Care Team Description 08/04/2017 Notes Only Cardiac Surgery Makayla Wilson APRN [facility] [place] [address] CARDIAC SURGERY [phone] [place], [place] [address] (Wo rk) Social History Tobacco [...] Zulma Dolan MD [facility] [place], [place] [address] (Wo rk) 05/28/2022 Laboratory Appointment Lab 05/28/2022 Office Visit Cardiology Zulma Dolan MD [facility] [place] [address] Liz Poole PA [facility] [place] [address] 06/10/2022 Office Visit Dermatology Laura Scherer MD [facility] [address] [place], [place] [address] (Wo rk) documented as of this encounter Visit Diagnoses Not on filedocumented in this encounter Care Teams Sheet Metal Erector Relationship Specialty Start Date End Date Lovely Vicente MD PCP - General 04/16/[address] [place] [address] documented as of this encounter
--- OUTSIDE RECORDS SUMMARY | 2022-05-11 08:46 | XMS_ITS | Encounter Summary ---
:1945 Author Organization [facility] [place] [address] Care Team Providers Name Role Phone Lovely Vicente MD Primary Care Provider Reason for Visit Auth/Cert Specialty Diagnoses / Procedures Referred By Contact Refer red To Contact Diagnoses Critical lower limb ischemia CELLULITIS RT FOOT Procedures EMERGENCY Referral ID Status Reason Start Date Expiration Date Visits Requ ested Visits Authorized [id number] 1 1 Encounter Details Date Type Department Care Team Description 08/06/2017 [place] [facility] [place] [facility] [place] [address] Social History Tobacco Use Types Packs/Day [...] Dolan MD [facility] [place] [address] [place] [address] (Wo rk) 05/28/2022 Laboratory Appointment Lab 05/28/2022 Office Visit Cardiology Zulma Dolan [place] [facility] [place] [address] Liz Poole PA [facility] [place] [address] 06/10/2022 Office Visit Dermatology Laura Scherer MD [facility] ER [address] [facility] [place], [place] [address] (Wo rk) documented as of [...] Signature Prealbumin 19 (L) 20 - 40 [facility] mg/dL [facility] Comment: Prealbumin levels are generally [...] Organization Address City/State/[place] [address] (ABNORMAL) Basic Metabolic Panel (non-fasting) (08/06/2017 12:32 PM EST) P athologist Signature Glucose Lvl 92 65 - 199 [facility] mg/dL [facility] Comment: Diabetes: [...] or in patients with acute kidney failure. [email or web address] [email or web address] Specimen Anatomical Collection Method Collection Time Receive d Time (Source) Location / / Volume Laterality Blood specimen 08/06/2017 12:32 8 1:15 (specimen) PM EST PM EST Resulting Agency Comment Spec In Lab Arik Clement MD CHEMISTRY ORDERABLES Performing Organization Address City/State/[place] [address] (ABNORMAL) Hemogram (08/06/2017 12:32 PM EST) Analysis Performed At Patho logist Time Signature WBC 11.8 (H) 4.0 - 9.5 [facility] x10(3)/[facility] LABORATORY RBC 3.49 (L) 4.58 - [facility] 5.54 [facility] x10(6)/[facility] LABORATORY Hemoglobin 9.9 (L) 13.7 - [facility] 16.5 gm/dL [facility] Hematocrit 32.0 (L) 40.5 - [facility] 48.5 % [facility] MCV 91.7 82.9 - [facility] 93.1 [facility] LABORATORY MCH 28.4 27.5 - [facility] 32.1 pg [facility] MCHC 30.9 (L) 32.0 - [facility] 35.7 gm/dL [facility] Platelets 326 145 - 357 [facility] x10(3)/[facility] LABORATORY RDWSD 53.4 (H) 36.0 - [place] 45.0 [facility] LABORATORY RDWCV 16.0 (H) 11.4 - [facility] 13.8 % [facility] MPV 9.1 7.6 - 12.9 [facility] LABORATORY nRBC % Auto 0.0 % [facility]ORY nRBC Abs Auto 0.000 0.000 - [place] 0.000 [facility] x10(3)/[facility] LABORATORY Specimen Anatomical Collection Method Collection Time Receive d Time (Source) Location / / Volume Laterality Blood specimen 08/06/2017 12:32 8 1:15 (specimen) PM EST PM EST Resulting Agency Comment Spec In Lab Arik Clement MD HEMATOLOGY ORDERABLES Performing Organization Address City/State/ZIP Code Phon e Number [place] [phone] documented in this encounter Visit Diagnoses Diagnosis Ischemia of foot Unspecified circulatory system disorder documented in this encounter Care Teams Stumper Feller Relationship Specialty Start Date End Date Lovely Vicente MD PCP - General 04/16/[address] [place] [address] documented as of this encounter
--- OUTSIDE RECORDS SUMMARY | 2022-05-11 08:46 | XMS_ITS | Encounter Summary ---
:1945 [place] [address] Care Team Providers Name Role Phone Lovely Vicente MD Primary Care Provider Encounter Details Date Type Department Care Team Description 08/05/2017 Notes Only [place] [facility] [place], [place]IE [facility] [place] [address] VASCULAR SURGERY [phone] [place], [place] [address] (Wo rk) Social History Tobacco [...] Zulma Dolan MD [facility] [place], [place] [address] (Wo rk) 05/28/2022 Laboratory Appointment Lab 05/28/2022 Office Visit Cardiology Zulma Dolan MD [facility] [place] [address] Liz Poole PA [facility] [place] [address] 06/10/2022 Office Visit Dermatology Laura Scherer MD [facility] [address] [place], [place] [address] (Wo rk) documented as of this encounter Visit Diagnoses Not on filedocumented in this encounter Care Teams Blasting Cap Assembler Relationship Specialty Start Date End Date Lovely Vicente MD PCP - General 04/16/15 [facility] [address] [place] [address] documented as of this encounter
--- OUTSIDE RECORDS SUMMARY | 2022-05-11 08:46 | XMS_ITS | Encounter Summary ---
:1945 Author Organization [facility] [place] [address] Care Team Providers Name Role Phone Lovely Vicente MD Primary Care Provider Reason for Visit Auth/Cert Specialty Diagnoses / Procedures Referred By Contact Refer red To Contact Diagnoses Critical lower limb ischemia CELLULITIS RT FOOT Procedures EMERGENCY Referral ID Status Reason Start Date Expiration Date Visits Requ ested Visits Authorized [id number] 1 1 Encounter Details Date Type Department Care Team Description 08/09/2017 Surgery Main Operating Room Yonathan Smith AM PUTATION, Mary Hitchcock MD TRANSMETATARSAL ([facility] 12.71) [facility] [address] [place] [address] [place] [address] [phone] Social History Tobacco Use Types Packs/Day Years [...] 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 [...] Pedis (Ankle) Artery ?132 ? 0.94 ??[place]-Biphasic ? Posterior Tibial (Ankle) Artery ??154 ? 1.10 ??[place]-Biphasic ? Fourth Toe ? 67 ?0.48 ?? [...] For any problems or questions please call [phone] ZELDA Smith, package dyeing machine operator Nurse Clinician For issues on weeknights after 5pm and weekends please call [phone] and ask for the Vascular Fellow technologies division chair. General Instructions None Future Appointments and Orders Future Appointments Provider Department Dept Phone 08/26/2017 4:00 PM Aurelia Rivera PA Vascular Surgery at [place] [phone] 09/07/2017 3:00 PM LAB, THREE L Lab 3L [facility] [phone] 09/07/2017 4:00 PM Luz Prescott MD Endocrinology at [place] [phone] 09/09/2017 8:00 AM Barbra Soares APRN Pain Management at [place] [phone] Please bring a list of your current [...] For any problems or questions please call [phone] ZELDA Smith, package dyeing machine operator Nurse Clinician For issues on weeknights after 5pm and weekends please call [phone] and ask for the Vascular Fellow technologies division chair. documented in this encounter Medications at [...] Management Discharge Note Patient Destination: [facility] ([facility]) [address] [address] Transportation: with (at bedside) Time of Discharge: by 12 noon Level of Care: swing Patient Aware: yes Family Notified: yes Md to call report to: Yissel Quintero RESTAURANT CREW PERSON already called RN to call report to: [phone] Shirin Wolf Office of Care Management Pager [phone] Shirin Wolf RN - 08/16/2017 10:50 AM EST [facility] has offered pt swing bed. Pt and accept bed. will transport via car. RESTAURANT CREW PERSON Yissel Quintero aware; d/c paperwork will be completed by 12 noon. [facility] requests pt arrival by 1400 today; RESTAURANT CREW PERSON, RN, and family aware. RESTAURANT CREW PERSON called [facility] and was told that they prefer pt to arrive with wound vac dressing applied but clamped. RESTAURANT CREW PERSON applied new wound vac dressing. RN has [facility] number to call report. PASSR completed; RESTAURANT CREW PERSON paged to request provider signature in highlighted space. Indigo from [facility] notified via email that home wound vac now cancelled; [facility] has picked up from room and order cancelled. Packet started and provided to community service specialist. Medicare important message explained to patient, patient signed. Copy provided to patient and signature page to OCM for inclusion in pt EMR. L Radha Powers Yoselin - 08/16/2017 10:34 AM EST Office of Care Management/Heavy Duty Truck Mechanic Patient Name: Gregory Hoang : 1945 Patient has been offered a swing bed at [facility]. The patient will be transported by private transportation. No MD to MD report necessary Please call Nursing Report to [phone], ask for medical director of hospice. Info to accompany patient: Narcotic Prescriptions Copies of Medication Administration Records and IV sheets for past 10 days. Plan: Heavy Duty Truck Mechanic will be available to the patient and Brand Lead-RN and/or Damage Cutter for further assistance. Patient will be discharged to: [place] [id number] Radha Powers, Heavy Duty Truck Mechanic Mira Truong, VAMSI - 08/15/2017 10:05 PM EST [address] Flores to ask if he wanted to hold metoprolol dose. BP 95/58. OK to hold this dose Courtney Brito - 08/15/2017 3:26 PM EST Office of Care Management(OCM)/Heavy Duty Truck Mechanic(RS)/ D/C Planning re : Patient is [...] status. 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 Vac in [...] patient's referral to: [facility] PHONE: [phone] FAX: [phone] CM spoke with RS who said that [...] rehab. Await recommendations from PT. Covering pager #[phone]. 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 First Press Operator Kaitlin Saha, RN Pager #[phone] Payam Rosales - 08/13/2017 2:37 PM EST [facility] Encounter Note Patient Name: Gregory Hoang : [id number] MR#: [id number] Admit Date: 08/06/2017 1:41 PM Hospital Day 7 days Narrative: Visited to introduce and assess acceptance of [facility] services. Pt was awake, alert, oriented and in chair and family was there. Assessment:Patient coping positively with stresses of illness/hospitalization at this time. Pt says that he is hoping to get better and his family was there. Pt says that he has family care and supportand taking one day at time. Intervention and Outcome: Provided emotional support and encouraging presence. 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 A letter describing our affiliations was reviewed with them and theywere educated about their right to choose where referrals are placed. Patient requests referral to [facility]. PHONE: [phone] FAX: [phone]. And Home NPWT (Negative Pressure Wound Therapy) aka wound vac device made available to pt. Serial # confirmed. Reviewed [facility] Proof of Delivery/Assignment of Benefits Statement(POD/AOB) Form w patient or authorized agent signing on behalf of patient. Copy of POD/AOB provided to pt and other copy faxed to [employer] @ fax# [phone] Expected date of discharge: 08/12/2017. 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 Heparin gtt continues to run. Pt a/ox4. [...] of : 1945 AGE 72 y.o. 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 Vascular resident technologies division chair and will forward result to the team prior to rounds. 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 Pt is ready for the OR. 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 [...] left blue toes with CTA showing R FENCE INSTALLER HELPER pseudoaneurysm (now thrombosed) and occluded ATs [...] 2.5x80 5. Completion RLE angiogram 6. L FENCE INSTALLER HELPER angiogram 7. 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 - L FENCE INSTALLER HELPER angriogram demonstrated: High femoral bifurcation over the proximal half of the femoral head. L FENCE INSTALLER HELPER access in the distal L FENCE INSTALLER HELPER. - Closure device: Mynx Technical Procedure: [...] for a 45cm 5F Destination. V18 and [place] and QuickCross catheters were used to select [...] 5F. A stationed picture of the L FENCE INSTALLER HELPER was performed as the patient was noted to have a very high bifurcation. Access appeared in the distal R FENCE INSTALLER HELPER. Closure and sheath removal was performed [...] PM EST 1440 report called to 5 sage nurse Tessa RN documented in this encounter [...] days -- Transfer Training Goal, Activity Type phm-xy-kmgvh/wjccy-uh-frp -- Transfer Train Goal, Whitfield Level conditional [...] call cabello within reach, Hourly rounding by RN/WOODWORKING MACHINE SETTER. Bed alarm / Chair alarm. Patient-specific fall [...] Participants nursing;family;physician Plan of Care - Chiquis Mcrgath RN - 08/15/2017 6:59 PM EST Problem: [...] Operative Note Patient Name: Gregory Hoang : [id number] MR#: [id number] Case Date: 08/09/2017 Surgeon: Surgeon(s) and Role: [...] 2.5x80 5. Completion RLE angiogram 6. L FENCE INSTALLER HELPER angiogram 7. Mynx closure Precautions/Restrictions: fall, [...] other (see comments) (or swing bed) Pager: [phone] BASSAM ELIAS, PT 08/14/2017 Inpatient Physical Therapy [...] choices are: 1- [facility] PHONE: [phone] FAX: [phone] 2- [facility] ([facility]) [address] [place] [address] 3- [facility])([facility]) [address] [place] [address] I have discussed Medicare/Private Insurance [...] RS/CM on Wednesday to follow-up. Covering pager #[phone] for today. Plan of Care - Henrique [...] with additional findings of pseudoaneurysm on R FENCE INSTALLER HELPER and bilateral anterior tibial artery occlusions. [...] an outpatient once discharged. Have patient call [phone] to set up an appointment. Follow-up: Dermatology will sign-off for now. Please do not hesitate to contact us if you have any questions orconcerns. Impression and Recommendations discussed with primary team on 08/13/2017. Karo Henderson MD Resident in Dermatology Section of Dermatology, Department of Surgery [facility] Pager [phone] Patient seen and evaluated with staff Shoe Dyer: Halima Cordero MD Section of Dermatology [facility] Level of Resident Supervision: [...] Outcome: Ongoing (Interventions Implemented as Appropriate) 08/12/17 1376 Coping/Psychosocial Plan Of Care Reviewed With patient;spouse [...] 2.5x80 5. Completion RLE angiogram 6. L FENCE INSTALLER HELPER angiogram 7. Mynx closure Active Non-Hospital [...] home with home health ([facility] PT&OT) Pager: [phone] YASIR TELLO OT 08/12/2017 Occupational Therapy Rehabilitation [...] 2.5x80 5. Completion RLE angiogram 6. L FENCE INSTALLER HELPER angiogram 7. 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 Completion RLE angiogram 6. L FENCE INSTALLER HELPER angiogram 7. Mynx closure He is [...] Anticipated Discharge Disposition: inpatient rehabilitation facility Pager: [phone] LAWRENCE GONZALEZ, PT 08/11/2017 Physical Therapy Rehabilitation [...] 7 days Transfer Training Goal, Activity Type ksi-ks-nypmc/nfdou-mn-obj Transfer Train Goal, [place] Level conditional independence Plan of David DelloAnnetta [...] call cabello within reach, Hourly rounding by RN/WOODWORKING MACHINE SETTER. Bed alarm / Chair alarm. ? Patient-specific [...] Advance Care Planning: on file Kisha Hoang [facility] [phone] Current Coping/Education/Information Needs: pt and spouse state [...] Health/Prescription Coverage: Primary Insurance: MEDICARE Secondary Insurance: [employer] [place] Prescription Coverage: See above Preferred Pharmacy: [id number] Other: N/A Primary Care Provider: Lovely Vicente MD [phone] Patient/Caregiver Goals of Treatment: Patient plans to [...] of care planning. Kaitlin Saha RN Pager: [phone] Plan of Care - Melba Jaramillo RN [...] Overview Goal: Plan of Care Review 08/08/17 2084 Coping/Psychosocial Plan Of Care Reviewed With patient [...] call cabello within reach, Hourly rounding by RN/WOODWORKING MACHINE SETTER. Bed alarm / Chair alarm. Patient-specific fall prevention interventions for sensory deficits provided, if applicable: [X] Yes CPG GOAL OUTCOME EVALUATION: Goal: Fall Prevention-Safe Patient Handling Outcome: Ongoing (Interventions Implemented as Appropriate) 08/06/17 1700 08/06/17199908/07/17 2864 Positioning Body Position -- up in chair [...] at bedside and MD TEAM Carrying pager [phone] contacted (via Radio page) and notified of [...] Zulma Dolan MD [facility] [place], [place] [address] (Wo rk) 05/28/2022 Laboratory Appointment Lab 05/28/2022 Office Visit Cardiology Zulma Dolan MD [facility] [place] [address] Liz Poole PA [facility] [place] [address] 06/10/2022 Office Visit Dermatology Laura Scherer MD [facility] [address] [place], [place] [address] (Wo rk) documented as of [...] AND SCREEN Routine 08/09/2017 1:10 ([facility]) AM EST BASIC METABOLIC PANEL Routine 08/09/2017 [...] 160 65 - 199 [place] mg/dL [facility] Comment: Supplemental ranges: <140 mg/dL before meals <180 mg/dL all other times of the day Specimen Anatomical Collection Method Collection Time Receive d Time (Source) Location / / Volume Laterality Blood specimen 08/16/2017 7:28 AM 018 7:28 (specimen) EST AM EST Yonathan Smith MD POINT OF CARE TEST ORDERABLE S Performing Organization Address City/State/[place] [address] [facility] [address] (ABNORMAL) Differential, Automated (08/16/2017 5:08 AM EST) [facility] Method Time Signature Neutrophils % 73.9 % [facility] LABORATORY Neutr Abs (ANC) 5.37 1.70 - [facility] 6.10 [facility] x10(3)/[facility] [employer] [facility] LABORATORY Lymphocytes % 10.1 % [facility] LABOR[facility]ORY Lymphocytes Abs 0.7 (L) 0.9 - 3.2 [facility] x10(3)/[facility] LABORATORY Monocytes % 10.1 % [facility] LABOR[facility]ORY Monocyte Abs 0.7 0.3 - 0.9 [facility] x10(3)/[facility] LABORATORY Eosinophils % 5.1 % [facility]OR[facility]ORY Eosinophils Abs 0.4 0.0 - 0.4 [facility] x10(3)/[facility] LABORATORY Basophils % 0.4 % [facility] LABORATORY Basophils Abs 0.0 0.0 - 0.1 [facility] x10(3)/[facility] LABORATORY Immature Gran % 0.40 [...] [facility] MAR Y [facility] LABORATORY Specimen Anatomical Collection Method Collection Time Receive d Time (Source) Location / / Volume Laterality Blood specimen 08/16/2017 5:08 AM 018 5:20 (specimen) EST AM EST Resulting Agency Comment Spec In Lab Yonathan Smith MD HEMATOLOGY ORDERABLES Performing Organization Address City/State/[place] [address] [facility] (ABNORMAL) Hemogram (08/16/2017 5:08 AM EST) Analysis Performed At Patho logist Time Signature WBC 7.3 4.0 - 9.5 [facility] x10(3)/[facility] LABORATORY RBC 3.36 (L) 4.58 - [facility] 5.54 [facility] x10(6)/[facility] [employer] [facility] LABORATORY Hemoglobin 9.7 (L) 13.7 - [facility] 16.5 gm/dL [facility] LAB[facility]ORY Hematocrit 30.3 (L) 40.5 - [facility] 48.5 % [facility] MCV 90.2 82.9 - [facility] 93.1 [facility] LABORATORY MCH 28.9 27.5 - [facility] 32.1 pg [facility] LAB[facility] MCHC 32.0 32.0 - [facility] 35.7 gm/dL [facility] Platelets 282 145 - 357 [facility] x10(3)/[facility] LABORATORY RDWSD 53.9 (H) 36.0 - [facility] 45.0 [facility] LABORATORY RDWCV 16.5 (H) 11.4 - [facility] 13.8 % [facility] LABORATORY MPV 9.0 7.6 - 12.9 [facility] LABORATORY nRBC % Auto 0.0 % [facility] LAB[facility] nRBC Abs Auto 0.000 0.000 - [facility] 0.000 [facility] x10(3)/[facility] [employer] LABORATORY Specimen Anatomical Collection Method Collection Time Receive d Time (Source) Location / / Volume Laterality Blood specimen 08/16/2017 5:08 AM 018 5:20 (specimen) EST AM EST Resulting Agency Comment Spec In Lab Yonathan Smith MD HEMATOLOGY ORDERABLES Performing Organization Address City/State/[place] [address] (ABNORMAL) Basic Metabolic Panel (non-fasting) (08/16/2017 5:08 AM EST) P athologist Signature Glucose Lvl 141 65 - 199 [facility] mg/dL [facility] [...] CENTER LABORATORY Estimated GFR 57 (L) >=60 [facility] LABORATORY Comment: The reported eGFR should be multiplied b y 1.2 for patients. The MDRD is not an appropriate measure o f renal function for patients with body mass extremes or in patients with acute kidney failure. http://[employer]/DHnkdep http://[employer]/DHMCnkf Specimen Anatomical Collection Method Collection Time Receive d Time (Source) Location / / Volume Laterality Blood specimen 08/16/2017 5:08 AM 018 5:20 (specimen) EST AM EST Resulting Agency Comment Spec In Lab Yonathan Smith MD CHEMISTRY ORDERABLES Performing Organization Address City/State/[place] [address] (ABNORMAL) Prothrombin Time (08/16/2017 [...] [facility]/ZIP Code Phon e Number [address] POCT Glucose (08/16/2017 4:09 AM EST) athologist Signature POC Glucose 147 65 - 199 [facility] R[facility]AN mg/dL [facility] Comment: Supplemental ranges: <140 [...] [facility]/ZIP Code Phon e Number [address] POCT Glucose (08/15/2017 11:56 PM EST) athologist Signature POC Glucose 176 65 - 199 [place] mg/dL [facility] Comment: Supplemental ranges: <140 [...] [facility]/ZIP Code Phon e Number [address] POCT Glucose (08/15/2017 8:05 PM EST) athologist Signature POC Glucose 136 65 - 199 [place] mg/dL [facility] Comment: Supplemental ranges: <140 mg/dL before meals <180 mg/dL all other times of the day Specimen Anatomical Collection Method Collection Time Receive d Time (Source) Location / / Volume Laterality Blood specimen 08/15/2017 8:05 PM 018 8:05 (specimen) EST PM EST Yonathan Smith MD POINT OF CARE TEST ORDERABLE S Performing Organization Address City/State/[place] [address] (ABNORMAL) POCT Glucose (08/15/2017 4:50 PM EST) athologist Signature POC Glucose 232 (H) 65 - 199 [place] mg/dL [facility] Comment: Supplemental ranges: <140 mg/dL before meals <180 mg/dL all other times of the day Specimen Anatomical Collection Method Collection Time Receive d Time (Source) Location / / Volume Laterality Blood specimen 08/15/2017 4:50 PM 018 4:50 (specimen) EST PM EST Yonathan Smith MD POINT OF CARE TEST ORDERABLE S Performing Organization Address City/State/[place] [address] POCT Glucose (08/15/2017 12:04 PM EST) athologist Signature POC Glucose 135 65 - 199 [place] mg/dL [facility] Comment: Supplemental ranges: <140 mg/dL before meals <180 mg/dL all other times of the day Specimen Anatomical Collection Method Collection Time Receive d Time (Source) Location / / Volume Laterality Blood specimen 08/15/2017 12:04 8 (specimen) PM EST 12:04 PM EST Yonathan Smith MD POINT OF CARE TEST ORDERABLE S Performing Organization Address City/State/[place] [address] POCT Glucose (08/15/2017 7:36 AM EST) athologist Signature POC Glucose 124 65 - 199 [place] mg/dL [facility] Comment: Supplemental ranges: <140 mg/dL before meals <180 mg/dL all other times of the day Specimen Anatomical Collection Method Collection Time Receive d Time (Source) Location / / Volume Laterality Blood specimen 08/15/2017 7:36 AM 018 7:36 (specimen) EST AM EST Yonathan Smith MD POINT OF CARE TEST ORDERABLE S Performing Organization Address City/State/[place] [address] (ABNORMAL) Differential, Automated (08/15/2017 6:22 AM EST) [facility] Method Time Signature Neutrophils % 76.1 % [facility]ORY Neutr Abs (ANC) 6.62 (H) 1.70 - [facility] 6.10 [facility] x10(3)/[facility] LABORATORY Lymphocytes % 9.3 % [facility] LABORATORY Lymphocytes Abs 0.8 (L) 0.9 - 3.2 [facility] x10(3)/[facility] LABORATORY Monocytes % 9.4 % [facility] LABORATORY Monocyte Abs 0.8 0.3 - 0.9 [facility] x10(3)/[facility] LABORATORY Eosinophils % 4.0 % [facility] LABORATORY Eosinophils Abs 0.4 0.0 - 0.4 [facility] x10(3)/[facility] LABORATORY Basophils % 0.6 % [facility] LABORATORY Basophils Abs 0.0 0.0 - 0.1 [facility] x10(3)/[facility] LABORATORY Immature Gran % 0.60 % [...] [facility]/ZIP Code Phon e Number [address] (ABNORMAL) Hemogram (08/15/2017 6:22 AM EST) Analysis Performed At Patho logist Time Signature WBC 8.7 4.0 - 9.5 [facility] LABORATORY RBC 3.21 (L) 4.58 - [place] [facility] 5.54 [facility] x10(6)/[employer] LABORATORY Hemoglobin 9.1 (L) 13.7 - [facility] 16.5 gm/dL [facility] LABORATORY Hematocrit 29.0 (L) 40.5 - [facility] 48.5 % [facility] LABORATORY MCV 90.3 82.9 - [facility] 93.1 [facility] LABORATORY MCH 28.3 27.5 - [facility] R[facility]AN 32.1 pg [facility] LABORATORY MCHC 31.4 (L) 32.0 - [facility] 35.7 gm/dL [facility] LABORATORY Platelets 254 145 - 357 [facility] x10(3)/[facility] LABORATORY RDWSD 53.9 (H) 36.0 - [facility] RYAN 45.0 [facility] LABORATORY RDWCV 16.3 (H) 11.4 - [facility] 13.8 % [facility] LABORATORY MPV 8.8 7.6 - 12.9 [facility] LABORATORY nRBC % Auto 0.0 % [facility] LABORATORY nRBC Abs Auto 0.000 0.000 - [facility] RYAN 0.000 [facility] x10(3)/[employer] LABORATORY Specimen Anatomical Collection Method Collection Time Receive d Time (Source) Location / / Volume Laterality Blood specimen 08/15/2017 6:22 AM 018 6:33 (specimen) EST AM EST Resulting Agency Comment Spec In Lab Yonathan Smith MD HEMATOLOGY ORDERABLES Performing Organization Address City/State/ZIP Code Phon e Number [facility] [place] [address] (ABNORMAL) Basic Metabolic Panel (non-fasting) (08/15/2017 6:22 AM EST) P athologist Signature Glucose Lvl 118 65 - 199 [facility] mg/dL [facility] [...] or in patients with acute kidney failure. [email or web address] [email or web address] Specimen Anatomical Collection Method Collection Time Receive d Time (Source) Location / / Volume Laterality Blood specimen 08/15/2017 6:22 AM 018 6:33 (specimen) EST AM EST Resulting Agency Comment Spec In Lab Yonathan Smith MD CHEMISTRY ORDERABLES Performing Organization Address City/State/ZIP Code Phon e Number [address] (ABNORMAL) Prothrombin Time (08/15/2017 [...] Address City/State/ZIP Code Phon e Number [address] POCT Glucose (08/15/2017 4:33 AM EST) athologist Signature POC Glucose 164 65 - 199 [facility]dL [facility] LABORATORY Comment: Supplemental ranges: <140 mg/dL before meals <180 mg/dL all other times of the day Specimen Anatomical Collection Method Collection Time Receive d Time (Source) Location / / Volume Laterality Blood specimen 08/15/2017 4:33 AM 018 4:33 (specimen) EST AM EST Yonathan Smith MD POINT OF CARE TEST ORDERABLE S Performing Organization Address City/State/ZIP Code Phon e Number [address] POCT Glucose (08/15/2017 12:12 AM EST) athologist Signature POC Glucose 89 65 - 199 [facility] mg/dL [facility] LABORATORY Comment: Supplemental ranges: <140 mg/dL before meals <180 mg/dL all other times of the day Specimen Anatomical Collection Method Collection Time Receive d Time (Source) Location / / Volume Laterality Blood specimen 08/15/2017 12:12 8 (specimen) AM EST 12:12 AM EST Yonathan Smith MD POINT OF CARE TEST ORDERABLE S Performing Organization Address City/State/ZIP Code Phon e Number [address] (ABNORMAL) POCT Glucose (08/14/2017 8:07 PM EST) athologist Signature POC Glucose 204 (H) 65 - 199 [facility] mg/dL [facility] LABORATORY Comment: Supplemental ranges: <140 [...] [facility]/[place] [address] POCT Glucose (08/14/2017 5:11 PM EST) athologist Signature POC Glucose 174 65 - 199 [facility] mg/dL [facility] LABORATORY Comment: Supplemental ranges: <140 mg/dL before meals <180 mg/dL all other times of the day Specimen Anatomical Collection Method Collection Time Receive d Time (Source) Location / / Volume Laterality Blood specimen 08/14/2017 5:11 PM 018 5:11 (specimen) EST PM EST Yonathan Smith MD POINT OF CARE TEST ORDERABLE S Performing Organization Address City/State/[place] [address] POCT Glucose (08/14/2017 12:10 PM EST) athologist Signature POC Glucose 141 65 - 199 [place] [facility] mg/dL [facility] LABORATORY Comment: Supplemental ranges: <140 mg/dL before meals <180 mg/dL all other times of the day Specimen Anatomical Collection Method Collection Time Receive d Time (Source) Location / / Volume Laterality Blood specimen 08/14/2017 12:10 8 (specimen) PM EST 12:10 PM EST Yonathan Smith MD POINT OF CARE TEST ORDERABLE S Performing Organization Address City/State/ZIP Code Phon e Number [address] POCT Glucose (08/14/2017 8:07 AM EST) P athologist Signature POC Glucose 158 65 - 199 [facility] mg/dL [facility] LABORATORY Comment: Supplemental ranges: <140 mg/dL before meals <180 mg/dL all other times of the day Specimen Anatomical Collection Method Collection Time Receive d Time (Source) Location / / Volume Laterality Blood specimen 08/14/2017 8:07 AM 018 8:07 (specimen) EST AM EST Yonathan Smith MD POINT OF CARE TEST ORDERABLE S Performing Organization Address City/State/ZIP Code Phon e Number [address] (ABNORMAL) Differential, Automated (08/14/2017 4:52 AM EST) Patholo gist Method Time Signature Neutrophils % 78.6 % [facility] LABORATORY Neutr Abs (ANC) 7.70 (H) 1.70 - [facility] 6.10 [facility] x10(3)/[facility] LABORATORY Lymphocytes % 7.8 % [facility] LABORATORY Lymphocytes Abs 0.8 (L) 0.9 - 3.2 [facility] x10(3)/[facility] LABORATORY Monocytes % 8.8 % [facility] LABORATORY Monocyte Abs 0.9 0.3 - 0.9 [facility] x10(3)/[facility] LABORATORY Eosinophils % 4.0 % [facility] LABORATORY Eosinophils Abs 0.4 0.0 - 0.4 [facility] x10(3)/[facility] LABORATORY Basophils % 0.5 % [facility] LABORATORY Basophils Abs 0.0 0.0 - 0.1 [facility] x10(3)/[facility] LABORATORY Immature Gran [...] [facility] LABORATORY Specimen Anatomical Collection Method Collection Time Receive d Time (Source) Location / / Volume Laterality Blood specimen 08/14/2017 4:52 AM 018 5:08 (specimen) EST AM EST Resulting Agency Comment Spec In Lab Yonathan Smith MD HEMATOLOGY ORDERABLES Performing Organization Address City/State/[place] [address] (ABNORMAL) Hemogram (08/14/2017 4:52 AM EST) Analysis Performed At Patho logist Time Signature WBC 9.8 (H) 4.0 - 9.5 [facility] x10(3)/[facility] LABORATORY RBC 3.32 (L) 4.58 - [facility] 5.54 [facility] x10(6)/[employer] LABORATORY Hemoglobin 9.5 (L) 13.7 - [facility] 16.5 gm/dL [facility] LABORATORY Hematocrit 30.3 (L) 40.5 - [facility] 48.5 % [facility] LABORATORY MCV 91.3 82.9 - [facility] 93.1 [facility] LABORATORY MCH 28.6 27.5 - [facility] 32.1 pg [facility] LABORATORY MCHC 31.4 (L) 32.0 - [facility] 35.7 gm/dL [facility] LABORATORY Platelets 263 145 - 357 [facility] x10(3)/[facility] LABORATORY RDWSD 54.8 (H) 36.0 - [facility] 45.0 [facility] LABORATORY RDWCV 16.5 (H) 11.4 - [facility] 13.8 % [facility] LABORATORY MPV 9.1 7.6 - 12.9 [facility] LABORATORY nRBC % Auto 0.0 % [facility] LABORATORY nRBC Abs Auto 0.000 0.000 - [facility] 0.000 [facility] x10(3)/[employer] LABORATORY Specimen Anatomical Collection Method Collection Time Receive d Time (Source) Location / / Volume Laterality Blood specimen 08/14/2017 4:52 AM 018 5:08 (specimen) EST AM EST Resulting Agency Comment Spec In Lab Yonathan Smith MD HEMATOLOGY ORDERABLES Performing Organization Address City/[facility]/[place] [address] (ABNORMAL) Prothrombin Time (08/14/2017 [...] [facility] [address] (ABNORMAL) Basic Metabolic Panel (non-fasting) (08/14/2017 4:52 AM EST) athologist Signature Glucose Lvl 135 65 - 199 [facility] mg/dL [facility] [...] CENTER LABORATORY Estimated GFR 52 (L) >=60 [facility] LABORATORY Comment: The reported eGFR should be multiplied b y 1.2 for patients. The MDRD is not an appropriate measure o f renal function for patients with body mass extremes or in patients with acute kidney failure. [email or web address] [email or web address] Specimen Anatomical Collection Method Collection Time Receive d Time (Source) Location / / Volume Laterality Blood specimen 08/14/2017 4:52 AM 018 5:08 (specimen) EST AM EST Resulting Agency Comment Spec In Lab Yonathan Smith MD CHEMISTRY ORDERABLES Performing Organization Address City/[facility]/ZIP Code Phon e Number [address] POCT Glucose (08/14/2017 3:56 AM EST) P athologist Signature POC Glucose 135 65 - 199 [facility] mg/dL [facility] LABORATORY Comment: Supplemental ranges: <140 [...] [facility]/[place] [address] POCT Glucose (08/13/2017 11:13 PM EST) athologist Signature POC Glucose 118 65 - 199 [place] mg/dL [facility] LABORATORY Comment: Supplemental ranges: <140 mg/dL before meals <180 mg/dL all other times of the day Specimen Anatomical Collection Method Collection Time Receive d Time (Source) Location / / Volume Laterality Blood specimen 08/13/2017 11:13 8 (specimen) PM EST 11:13 PM EST Yonathan Smith MD POINT OF CARE TEST ORDERABLE S Performing Organization Address City/State/[place] [address] (ABNORMAL) POCT Glucose (08/13/2017 8:08 PM EST) athologist Signature POC Glucose 204 (H) 65 - 199 [facility] mg/dL [facility] LABORATORY Comment: Supplemental ranges: <140 mg/dL before meals <180 mg/dL all other times of the day Specimen Anatomical Collection Method Collection Time Receive d Time (Source) Location / / Volume Laterality Blood specimen 08/13/2017 8:08 PM 018 8:08 (specimen) EST PM EST Yonathan Smith MD POINT OF CARE TEST ORDERABLE S Performing Organization Address City/State/[place] [address] POCT Glucose (08/13/2017 4:02 PM EST) athologist Signature POC Glucose 145 65 - 199 [facility] mg/dL [facility] LABORATORY Comment: Supplemental ranges: <140 mg/dL before meals <180 mg/dL all other times of the day Specimen Anatomical Collection Method Collection Time Receive d Time (Source) Location / / Volume Laterality Blood specimen 08/13/2017 4:02 PM 018 4:02 (specimen) EST PM EST Yonathan Smith MD POINT OF CARE TEST ORDERABLE S Performing Organization Address City/State/[place] [address] POCT Glucose (08/13/2017 11:31 AM EST) athologist Signature POC Glucose 179 65 - 199 [facility] mg/dL [facility] LABORATORY Comment: Supplemental ranges: <140 [...] [facility]/[place] [address] (ABNORMAL) POCT Glucose (08/13/2017 10:16 AM EST) athologist Signature POC Glucose 211 (H) 65 - 199 [facility] mg/dL [facility] LABORATORY Comment: Supplemental ranges: <140 [...] [facility]/[place] [address] JULIAN, legs, multiple levels (08/13/2017 7:42 AM EST) Component Value Ref Test [facility] Method Time Signature VB Text Department: Vascular Surgery Lab VASCUBASE Report Patient: [id number] (GREGORY HOANG) CPT: 98632 ICD10: I99.8 Referring Physician: YONATHAN SMITH ?? Indications: s/p R 1,2,3 toe amps with red left foot, need n ew baseline Diabetes mellitus: yes ICD10 Diagnosis Code: I99.8 Findings: Right ?Pressure (mm Hg) ?? JULIAN ??Waveform ?TBI ?? Brachial Artery ?138 ? Dorsalis Pedis (Ankle) Arter y ?132 ? 0.94 ??[place]- Biphasic ? Posterior Tibial (Ankle) Art anila ??154 ? 1.10 ??[place]-Biphasic ? Fourth Toe ? 67 ? 0.48 [...] Glucose 156 65 - 199 [facility] mg/dL [facility] LABORATORY Comment: Supplemental ranges: <140 mg/dL before meals <180 mg/dL all other times of the day Specimen Anatomical Collection Method Collection Time Receive d Time (Source) Location / / Volume Laterality Blood specimen 08/13/2017 7:33 AM 018 7:33 (specimen) EST AM EST Yonathan Smith MD POINT OF CARE TEST ORDERABLE S Performing Organization Address City/State/[place] [address] (ABNORMAL) Differential, Automated (08/13/2017 5:33 AM EST) Patholo gist Method Time Signature Neutrophils % 77.8 % [facility] LABORATORY Neutr Abs (ANC) 7.83 (H) 1.70 - [facility] 6.10 [facility] x10(3)/[facility] LABORATORY Lymphocytes % 8.4 % [facility] LABORATORY Lymphocytes Abs 0.8 (L) 0.9 - 3.2 [facility] x10(3)/[facility] LABORATORY Monocytes % 8.3 % [facility] LABORATORY Monocyte Abs 0.8 0.3 - 0.9 [facility] x10(3)/[facility] LABORATORY Eosinophils % 4.6 % [facility] LABORATORY Eosinophils Abs 0.5 (H) 0.0 - 0.4 [facility] x10(3)/[facility] LABORATORY Basophils % 0.5 % [facility] LABORATORY Basophils Abs 0.0 0.0 - 0.1 [facility] x10(3)/[facility] LABORATORY Immature Gran [...] [facility] LABORATORY Specimen Anatomical Collection Method Collection Time Receive d Time (Source) Location / / Volume Laterality Blood specimen 08/13/2017 5:33 AM 018 6:04 (specimen) EST AM EST Resulting Agency Comment Spec In Lab Yonathan Smith MD HEMATOLOGY ORDERABLES Performing Organization Address City/State/ZIP Code Phon e Number [place] [id number] LAB[address]ORY [address] (ABNORMAL) Hemogram (08/13/2017 5:33 AM EST) Analysis Performed At Patho logist Time Signature WBC 10.1 (H) 4.0 - 9.5 [facility] x10(3)/[facility] LABORATORY RBC 3.21 (L) 4.58 - [facility] 5.54 [facility] x10(6)/[employer] LABORATORY Hemoglobin 9.2 (L) 13.7 - [facility] 16.5 gm/dL [facility] LABORATORY Hematocrit 29.6 (L) 40.5 - [facility] 48.5 % [facility] LABORATORY MCV 92.2 82.9 - [facility] 93.1 [facility] LABORATORY MCH 28.7 27.5 - [facility] 32.1 pg [facility] LABORATORY MCHC 31.1 (L) 32.0 - [facility] 35.7 gm/dL [facility] LABORATORY Platelets 263 145 - 357 [facility] x10(3)/[facility] LABORATORY RDWSD 54.8 (H) 36.0 - [facility] 45.0 [facility] LABORATORY RDWCV 16.4 (H) 11.4 - [facility] 13.8 % [facility] LABORATORY MPV 9.2 7.6 - 12.9 [facility] LABORATORY nRBC % Auto 0.0 % [facility] LABORATORY nRBC Abs Auto 0.000 0.000 - [facility] 0.000 [facility] x10(3)/[employer] LABORATORY Specimen Anatomical Collection Method Collection Time Receive d Time (Source) Location / / Volume Laterality Blood specimen 08/13/2017 5:33 AM 018 6:04 (specimen) EST AM EST Resulting Agency Comment Spec In Lab Yonathan Smith MD HEMATOLOGY ORDERABLES Performing Organization Address City/State/[place] [address] (ABNORMAL) Prothrombin Time (08/13/2017 [...] Organization Address City/State/[place] [address] (ABNORMAL) Basic Metabolic Panel (non-fasting) (08/13/2017 5:33 AM EST) P athologist Signature Glucose Lvl 126 65 - 199 [facility] mg/dL [facility] [...] or in patients with acute kidney failure. [email or web address] [email or web address] Specimen Anatomical Collection Method Collection Time Receive d Time (Source) Location / / Volume Laterality Blood specimen 08/13/2017 5:33 AM 018 6:04 (specimen) EST AM EST Resulting Agency Comment Spec In Lab Yonathan Smith MD CHEMISTRY ORDERABLES Performing Organization Address City/State/ZIP Code Phon e Number [address] POCT Glucose (08/13/2017 4:29 AM EST) athologist Signature POC Glucose 111 65 - 199 [place] mg/dL [facility] LABORATORY Comment: Supplemental ranges: <140 [...] [facility]/[place] [address] POCT Glucose (08/12/2017 11:28 PM EST) athologist Signature POC Glucose 164 65 - 199 [facility] mg/dL [facility] LABORATORY Comment: Supplemental ranges: <140 [...] [facility]/ZIP Code Phon e Number [address] (ABNORMAL) POCT Glucose (08/12/2017 7:40 PM EST) athologist Signature POC Glucose 209 (H) 65 - 199 [facility] mg/dL [facility] LABORATORY Comment: Supplemental ranges: <140 mg/dL before meals <180 mg/dL all other times of the day Specimen Anatomical Collection Method Collection Time Receive d Time (Source) Location / / Volume Laterality Blood specimen 08/12/2017 7:40 PM 018 7:40 (specimen) EST PM EST Yonathan Smith MD POINT OF CARE TEST ORDERABLE S Performing Organization Address City/State/ZIP Code Phon e Number [address] POCT Glucose (08/12/2017 4:24 PM EST) athologist Signature POC Glucose 161 65 - 199 [facility] mg/dL [facility] LABORATORY Comment: Supplemental ranges: <140 mg/dL before meals <180 mg/dL all other times of the day Specimen Anatomical Collection Method Collection Time Receive d Time (Source) Location / / Volume Laterality Blood specimen 08/12/2017 4:24 PM 018 4:24 (specimen) EST PM EST Yonathan Smith MD POINT OF CARE TEST ORDERABLE S Performing Organization Address City/State/ZIP Code Phon e Number [address] POCT Glucose (08/12/2017 12:00 PM EST) athologist Signature POC Glucose 167 65 - 199 [place] mg/dL [facility] LABORATORY Comment: Supplemental ranges: <140 mg/dL before meals <180 mg/dL all other times of the day Specimen Anatomical Collection Method Collection Time Receive d Time (Source) Location / / Volume Laterality Blood specimen 08/12/2017 12:00 8 (specimen) PM EST 12:00 PM EST Yonathan Smith MD POINT OF CARE TEST ORDERABLE S Performing Organization Address City/State/ZIP Code Phon e Number [address] POCT Glucose (08/12/2017 7:25 AM EST) athologist Signature POC Glucose 152 65 - 199 [facility] mg/dL [facility] LABORATORY Comment: Supplemental ranges: <140 mg/dL before meals <180 mg/dL all other times of the day Specimen Anatomical Collection Method Collection Time Receive d Time (Source) Location / / Volume Laterality Blood specimen 08/12/2017 7:25 AM 018 7:25 (specimen) EST AM EST Yonathan Smith MD POINT OF CARE TEST ORDERABLE S Performing Organization Address City/State/[place] [address] (ABNORMAL) Differential, Automated (08/12/2017 6:29 AM EST) [facility] Method Time Signature Neutrophils % 78.7 % [facility] LABORATORY Neutr Abs (ANC) 7.94 (H) 1.70 - [facility] 6.10 [facility] x10(3)/[facility] LABORATORY Lymphocytes % 8.8 % [facility] LABORATORY Lymphocytes Abs 0.9 0.9 - 3.2 [facility] x10(3)/[facility] LABORATORY Monocytes % 7.8 % [facility] LABORATORY Monocyte Abs 0.8 0.3 - 0.9 [facility] x10(3)/[facility] LABORATORY Eosinophils % 3.9 % [facility] LABORATORY Eosinophils Abs 0.4 0.0 - 0.4 [facility] x10(3)/[facility] LABORATORY Basophils % 0.3 % [facility] LABORATORY Basophils Abs 0.0 0.0 - 0.1 [facility] x10(3)/[facility] LABORATORY Immature Gran % 0.50 % [...] Address City/State/ZIP Code Phon e Number [address] (ABNORMAL) Hemogram (08/12/2017 6:29 AM EST) Analysis Performed At Patho logist Time Signature WBC 10.1 (H) 4.0 - 9.5 [facility] x[facility](3[facility] LABORATORY RBC 3.02 (L) 4.58 - [place] 5.54 [facility] x10(6)/[employer] LABORATORY Hemoglobin 8.7 (L) 13.7 - [facility] 16.5 gm/dL [facility] LABORATORY Hematocrit 28.1 (L) 40.5 - [facility] 48.5 % [facility] LABORATORY MCV 93.0 82.9 - [facility]1 [facility] LABORATORY MCH 28.8 27.5 - [place] 32.1 pg [facility] LABORATORY MCHC 31.0 (L) 32.0 - [facility] 35.7 gm/dL [facility] LABORATORY Platelets 223 145 - 357 [facility] x10(3)/[facility] LABORATORY RDWSD 56.1 (H) 36.0 - [place] 45.0 [facility] LABORATORY RDWCV 16.4 (H) 11.4 - [facility] RYAN 13.8 % [facility] LABORATORY MPV 9.0 7.6 - 12.9 [facility] LABORATORY nRBC % Auto 0.0 % [facility] LABORATORY nRBC Abs Auto 0.000 0.000 - [place] 0.000 [facility] x10(3)/[employer] LABORATORY Specimen Anatomical Collection Method Collection Time Receive d Time (Source) Location / / Volume Laterality Blood specimen 08/12/2017 6:29 AM 018 6:38 (specimen) EST AM EST Resulting Agency Comment Spec In Lab Yonathan Smith MD HEMATOLOGY ORDERABLES Performing Organization Address City/State/[place] [address] (ABNORMAL) Prothrombin Time (08/12/2017 [...] Organization Address City/State/[place] [address] (ABNORMAL) Basic Metabolic Panel (non-fasting) (08/12/2017 6:29 AM EST) athologist Signature Glucose Lvl 151 65 - 199 [facility] mg/dL [facility] [...] or in patients with acute kidney failure. [email or web address] Specimen Anatomical Collection Method Collection Time Receive d Time (Source) Location / / Volume Laterality Blood specimen 08/12/2017 6:29 AM 018 6:38 (specimen) EST AM EST Resulting Agency Comment Spec In Lab Yonathan Smith MD CHEMISTRY ORDERABLES Performing Organization Address City/[facility]/ZIP Code Phon e Number [address] POCT Glucose (08/12/2017 4:08 AM EST) athologist Signature POC Glucose 181 65 - 199 [facility] LABORATORY Comment: Supplemental ranges: <140 mg/dL before meals <180 mg/dL all other times of the day Specimen Anatomical Collection Method Collection Time Receive d Time (Source) Location / / Volume Laterality Blood specimen 08/12/2017 4:08 AM 018 4:08 (specimen) EST AM EST Yonathan Smith MD POINT OF CARE TEST ORDERABLE S Performing Organization Address City/State/[place] [address] (ABNORMAL) POCT Glucose (08/12/2017 12:17 AM EST) P athologist Signature POC Glucose 221 (H) 65 - 199 [facility] LABORATORY Comment: Supplemental ranges: <140 [...] [facility]/ZIP Code Phon e Number [address] (ABNORMAL) POCT Glucose (08/11/2017 8:52 PM EST) athologist Signature POC Glucose 221 (H) 65 - 199 [facility] mg/dL [facility] LABORATORY Comment: Supplemental ranges: <140 [...] [facility]/[place] [address] POCT Glucose (08/11/2017 5:59 PM EST) athologist Signature POC Glucose 169 65 - 199 [place] ZHAORYAN mg/dL [facility] LABORATORY Comment: Supplemental ranges: <140 [...] [facility]/[place] [address] (ABNORMAL) POCT Glucose (08/11/2017 4:08 PM EST) athologist Signature POC Glucose 240 (H) 65 - 199 [place]BAR[facility] RYAN mg/dL [facility] LABORATORY Comment: Supplemental ranges: <140 mg/dL before meals <180 mg/dL all other times of the day Specimen Anatomical Collection Method Collection Time Receive d Time (Source) Location / / Volume Laterality Blood specimen 08/11/2017 4:08 PM 01/17/2 018 4:08 (specimen) EST PM EST Yonathan Smith MD POINT OF CARE TEST ORDERABLE S Performing Organization Address City/State/ZIP Code Phon e Number [address] POCT Glucose (08/11/2017 12:04 PM EST) athologist Signature POC Glucose 182 65 - 199 [facility] LABORATORY Comment: Supplemental ranges: <140 mg/dL before meals <180 mg/dL all other times of the day Specimen Anatomical Collection Method Collection Time Receive d Time (Source) Location / / Volume Laterality Blood specimen 08/11/2017 12:04 8 (specimen) PM EST 12:04 PM EST Yonathan Smith MD POINT OF CARE TEST ORDERABLE S Performing Organization Address City/State/ZIP Code Phon e Number [address] POCT Glucose (08/11/2017 7:31 AM EST) athologist Signature POC Glucose 156 65 - 199 [facility]/dL [facility] LABORATORY Comment: Supplemental ranges: <140 mg/dL before meals <180 mg/dL all other times of the day Specimen Anatomical Collection Method Collection Time Receive d Time (Source) Location / / Volume Laterality Blood specimen 08/11/2017 7:31 AM 018 7:31 (specimen) EST AM EST Yonathan Smith MD POINT OF CARE TEST ORDERABLE S Performing Organization Address City/State/ZIP Code Phon e Number [address] (ABNORMAL) Differential, Automated (08/11/2017 6:16 AM EST) [facility] gist Method Time Signature Neutrophils % 83.7 % [facility] LABORATORY Neutr Abs (ANC) 10.76 (H) 1.70 - [facility] 6.10 [facility] x10(3)/[facility] LABORATORY Lymphocytes % 6.0 % [facility] LABORATORY Lymphocytes Abs 0.8 (L) 0.9 - 3.2 [facility] x10(3)/[facility] LABORATORY Monocytes % 7.5 % [facility] LABORATORY Monocyte Abs 1.0 (H) 0.3 - 0.9 [facility] x10(3)/[facility] LABORATORY Eosinophils % 2.0 % [facility] LABORATORY Eosinophils Abs 0.3 0.0 - 0.4 [facility] x10(3)/[facility] LABORATORY Basophils % 0.3 % [facility] LABORATORY Basophils Abs 0.0 0.0 - 0.1 [facility] x10(3)/[facility] LABORATORY Immature Gran % 0.50 % [...] Organization Address City/State/[place] [address] (ABNORMAL) Hemogram (08/11/2017 6:16 AM EST) Analysis Performed At Patho logist Time Signature WBC 12.9 (H) 4.0 - 9.5 [facility] x10(3)/[facility] LABORATORY RBC 3.28 (L) 4.58 - [facility] 5.54 [facility] x10(6)/[employer] LABORATORY Hemoglobin 9.5 (L) 13.7 - [facility] 16.5 gm/dL [facility] LABORATORY Hematocrit 29.8 (L) 40.5 - [facility] 48.5 % [facility] LABORATORY MCV 90.9 82.9 - [facility] 93.1 [facility] LABORATORY MCH 29.0 27.5 - [place] RYAN 32.1 pg [facility] LABORATORY MCHC 31.9 (L) 32.0 - [place] DAVIS 35.7 gm/dL [facility] LABORATORY Platelets 236 145 - 357 [facility] x10(3)/[facility] LABORATORY RDWSD 53.5 (H) 36.0 - [facility] 45.0 [facility] LABORATORY RDWCV 16.3 (H) 11.4 - [facility] RYAN 13.8 % [facility] LABORATORY MPV 8.8 7.6 - 12.9 [facility] LABORATORY nRBC % Auto 0.0 % [facility] LABORATORY nRBC Abs Auto 0.000 0.000 - [facility] RYAN 0.000 [facility] x10(3)/[employer] LABORATORY Specimen Anatomical Collection Method Collection Time Receive d Time (Source) Location / / Volume Laterality Blood specimen 08/11/2017 6:16 AM 018 6:24 (specimen) EST AM EST Resulting Agency Comment Spec In Lab Yonathan Smith MD HEMATOLOGY ORDERABLES Performing Organization Address City/State/[place] [address] (ABNORMAL) Prothrombin Time (08/11/2017 [...] [facility]/[place] [address] Basic Metabolic Panel (non-fasting) (08/11/2017 6:16 AM EST) athologist Signature Glucose Lvl 139 65 - 199 [facility] mg/dL [facility] [...] or in patients with acute kidney failure. [email or web address] Specimen Anatomical Collection Method Collection Time Receive d Time (Source) Location / / Volume Laterality Blood specimen 08/11/2017 6:16 AM 018 6:24 (specimen) EST AM EST Resulting Agency Comment Spec In Lab Yonathan Smith MD CHEMISTRY ORDERABLES Performing Organization Address City/[facility]/ZIP Code Phon e Number [address] POCT Glucose (08/11/2017 4:07 AM EST) athologist Signature POC Glucose 162 65 - 199 [facility] mg/dL [facility] LABORATORY Comment: Supplemental ranges: <140 mg/dL before meals <180 mg/dL all other times of the day Specimen Anatomical Collection Method Collection Time Receive d Time (Source) Location / / Volume Laterality Blood specimen 08/11/2017 4:07 AM 018 4:07 (specimen) EST AM EST Yonathan Smith MD POINT OF CARE TEST ORDERABLE S Performing Organization Address City/State/ZIP Code Phon e Number [address] POCT Glucose (08/10/2017 11:59 PM EST) athologist Signature POC Glucose 166 65 - 199 [place] RYAN mg/dL [facility] LABORATORY Comment: Supplemental ranges: <140 mg/dL before meals <180 mg/dL all other times of the day Specimen Anatomical Collection Method Collection Time Receive d Time (Source) Location / / Volume Laterality Blood specimen 08/10/2017 11:59 8 (specimen) PM EST 11:59 PM EST Yonathan Smith MD POINT OF CARE TEST ORDERABLE S Performing Organization Address City/State/[place] [address] POCT Glucose (08/10/2017 8:12 PM EST) athologist Signature POC Glucose 156 65 - 199 [facility] RYAN mg/dL [facility] LABORATORY Comment: Supplemental ranges: <140 mg/dL before meals <180 mg/dL all other times of the day Specimen Anatomical Collection Method Collection Time Receive d Time (Source) Location / / Volume Laterality Blood specimen 08/10/2017 8:12 PM 018 8:12 (specimen) EST PM EST Yonathan Smith MD POINT OF CARE TEST ORDERABLE S Performing Organization Address City/State/[place] [address] (ABNORMAL) POCT Glucose (08/10/2017 4:42 PM EST) P athologist Signature POC Glucose 211 (H) 65 - 199 [facility] mg/dL [facility] LABORATORY Comment: Supplemental ranges: <140 mg/dL before meals <180 mg/dL all other times of the day Specimen Anatomical Collection Method Collection Time Receive d Time (Source) Location / / Volume Laterality Blood specimen 08/10/2017 4:42 PM 018 4:42 (specimen) EST PM EST Yonathan Smith MD POINT OF CARE TEST ORDERABLE S Performing Organization Address City/State/ZIP Code Phon e Number [place] [id number] (ABNORMAL) Differential, Automated (08/10/2017 2:30 PM EST) Patholo gist Method Time Signature Neutrophils % 87.6 % [facility] LABORATORY Neutr Abs (ANC) 9.90 (H) 1.70 - [facility] 6.10 [facility] x10(3)/[facility] LABORATORY Lymphocytes % 4.3 % [facility] LABORATORY Lymphocytes Abs 0.5 (L) 0.9 - 3.2 [facility] x10(3)/[facility] LABORATORY Monocytes % 6.0 % [facility] LABORATORY Monocyte Abs 0.7 0.3 - 0.9 [facility] x10(3)/[facility] LABORATORY Eosinophils % 1.1 % [facility] LABORATORY Eosinophils Abs 0.1 0.0 - 0.4 [facility] x10(3)/[facility] LABORATORY Basophils % 0.4 % [facility] LABORATORY Basophils Abs 0.0 0.0 - 0.1 [facility] x10(3)/[facility] LABORATORY Immature Gran % 0.60 % [...] Organization Address City/State/[place] [address] (ABNORMAL) Hemogram (08/10/2017 2:30 PM EST) Analysis Performed At Patho logist Time Signature WBC 11.3 (H) 4.0 - 9.5 [facility] x10(3)/[facility] LABORATORY RBC 3.13 (L) 4.58 - [facility] 5.54 [facility] x10(6)/[employer] LABORATORY Hemoglobin 8.9 (L) 13.7 - [facility] 16.5 gm/dL [facility] LABORATORY Hematocrit 28.4 (L) 40.5 - [facility] 48.5 % [facility] LABORATORY MCV 90.7 82.9 - [facility] 93.1 [facility] LABORATORY MCH 28.4 27.5 - [facility] 32.1 pg [facility] LABORATORY MCHC 31.3 (L) 32.0 - [facility] 35.7 gm/dL [facility] LABORATORY Platelets 213 145 - 357 [facility] x10(3)/[facility] LABORATORY RDWSD 53.7 (H) 36.0 - [facility] RYAN 45.0 [facility] LABORATORY RDWCV 16.4 (H) 11.4 - [facility] RYAN 13.8 % [facility] LABORATORY MPV 8.9 7.6 - 12.9 [facility] LABORATORY nRBC % Auto 0.0 % [facility] LABORATORY nRBC Abs Auto 0.000 0.000 - [facility] RYAN 0.000 [facility] x10(3)/[employer] LABORATORY Specimen Anatomical Collection Method Collection Time Receive d Time (Source) Location / / Volume Laterality Blood specimen 08/10/2017 2:30 PM 018 2:48 (specimen) EST PM EST Resulting Agency Comment Spec In Lab Yonathan Smith MD HEMATOLOGY ORDERABLES Performing Organization Address City/State/ZIP Code Phon e Number [address] (ABNORMAL) POCT Glucose (08/10/2017 1:50 PM EST) athologist Signature POC Glucose 243 (H) 65 - 199 [facility] mg/dL [facility] LABORATORY Comment: Supplemental ranges: <140 [...] [facility]/ZIP Code Phon e Number [address] POCT Glucose (08/10/2017 11:21 AM EST) athologist Signature POC Glucose 156 65 - 199 [facility] mg/dL [facility] LABORATORY Comment: Supplemental ranges: <140 mg/dL before meals <180 mg/dL all other times of the day Specimen Anatomical Collection Method Collection Time Receive d Time (Source) Location / / Volume Laterality Blood specimen 08/10/2017 11:21 8 (specimen) AM EST 11:21 AM EST Yonathan mSith MD POINT OF CARE TEST ORDERABLE S Performing Organization Address City/[facility]/[place] [address] (ABNORMAL) Differential, Automated (08/10/2017 10:28 AM EST) [facility] Method Time Signature Neutrophils % 85.3 % [facility] LABORATORY Neutr Abs (ANC) 9.43 (H) 1.70 - [facility] 6.10 [facility] x10(3)/[facility] LABORATORY Lymphocytes % 5.5 % [facility] LABORATORY Lymphocytes Abs 0.6 (L) 0.9 - 3.2 [facility] x10(3)/[facility] LABORATORY Monocytes % 5.9 % [facility] LABORATORY Monocyte Abs 0.6 0.3 - 0.9 [facility] x10(3)/[facility] LABORATORY Eosinophils % 2.1 % [facility] LABORATORY Eosinophils Abs 0.2 0.0 - 0.4 [facility] x10(3)/[facility] LABORATORY Basophils % 0.4 % [facility] LABORATORY Basophils Abs 0.0 0.0 - 0.1 [facility] x10(3)/[facility] LABORATORY Immature Gran % 0.80 % [...] Organization Address City/State/[place] [address] (ABNORMAL) Hemogram (08/10/2017 10:28 AM EST) Analysis Performed At Patho logist Time Signature WBC 11.0 (H) 4.0 - 9.5 [facility] x10(3)/[facility] LABORATORY RBC 3.02 (L) 4.58 - [facility] 5.54 [facility] x10(6)/[facility] [employer] LABORATORY Hemoglobin 8.8 (L) 13.7 - [facility] 16.5 gm/dL [facility] LABORATORY Hematocrit 28.1 (L) 40.5 - [facility] 48.5 % [facility] LABORATORY MCV 93.0 82.9 - [facility] 93.1 [facility] MCH 29.1 27.5 - [place] DAVIS 32.1 pg [facility] MCHC 31.3 (L) 32.0 - [place] DAVIS 35.7 gm/dL [facility] Platelets 207 145 - 357 [facility] x10(3)/[facility] LABORATORY RDWSD 55.3 (H) 36.0 - [place] YRAN 45.0 [facility] RDWCV 16.4 (H) 11.4 - [facility] RYAN 13.8 % [facility] MPV 9.0 7.6 - 12.9 [facility] LABORATORY nRBC % Auto 0.0 % [facility] nRBC Abs Auto 0.000 0.000 - [facility] RYAN 0.000 [facility] x10(3)/[employer] LABORATORY Specimen Anatomical Collection Method Collection Time Receive d Time (Source) Location / / Volume Laterality Blood specimen 08/10/2017 10:28 8 (specimen) AM EST 10:35 AM EST Resulting Agency Comment Spec In Lab Yonathan Smith MD HEMATOLOGY ORDERABLES Performing Organization Address City/State/[place] [address] VS Angiogram/intervention (vascular) (08/10/2017 [...] 2.5x80 5. Completion RLE angiogram 6. L FENCE INSTALLER HELPER angiogram 7. 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 - L [employer]ENCE INSTALLER HELPER angriogram demonstrated: High fe moral bifurcation over the proximal half of the femoral head. L FENCE INSTALLER HELPER access in the distal L FENCE INSTALLER HELPER. - Closure device: Mynx Technical Procedure: [...] for a 45cm 5F Destination. V18 and [place] a nd QuickCross catheters were used to [...] bifurcation. Access appeared in the distal R FENCE INSTALLER HELPER. Closure and sheath removal was performed [...] 2.5x80 5. Completion RLE angiogram 6. L FENCE INSTALLER HELPER angiogram 7. 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 - L [employer]ENCE INSTALLER HELPER angriogram demonstrated: High fe moral bifurcation over the proximal half of the femoral head. L FENCE INSTALLER HELPER access in the distal L FENCE INSTALLER HELPER. - Closure device: Mynx Technical Procedure: [...] for a 45cm 5F Destination. V18 and [place] a nd QuickCross catheters were used to [...] bifurcation. Access appeared in the distal R FENCE INSTALLER HELPER. Closure and sheath removal was performed [...] (ABNORMAL) Differential, Automated (08/10/2017 5:50 AM EST) [facility] gist Method Time Signature Neutrophils % 80.1 % [facility] LABORATORY Neutr Abs (ANC) 9.01 (H) 1.70 - [facility] 6.10 [facility] x10(3)/[facility] LABORATORY Lymphocytes % 8.8 % [facility] LABORATORY Lymphocytes Abs 1.0 0.9 - 3.2 [facility] x10(3)/[facility] LABORATORY Monocytes % 8.3 % [facility] LABORATORY Monocyte Abs 0.9 0.3 - 0.9 [facility] x10(3)/[facility] LABORATORY Eosinophils % 2.0 % [facility] LABORATORY Eosinophils Abs 0.2 0.0 - 0.4 [facility] x10(3)/[facility] LABORATORY Basophils % 0.4 % [facility] LABORATORY Basophils Abs 0.0 0.0 - 0.1 [facility] x10(3)/[facility] LABORATORY Immature Gran [...] Organization Address City/State/[place] [address] (ABNORMAL) Hemogram (08/10/2017 5:50 AM EST) Analysis Performed At Patho logist Time Signature WBC 11.3 (H) 4.0 - 9.5 [facility] x[facility](3[facility] LABORATORY RBC 3.15 (L) 4.58 - [facility] 5.54 [facility] x10(6)/[employer] LABORATORY Hemoglobin 8.9 (L) 13.7 - [facility] 16.5 gm/dL [facility] LABORATORY Hematocrit 29.0 (L) 40.5 - [facility] 48.5 % [facility] LABORATORY MCV 92.1 82.9 - [facility] 93.1 [facility] LABORATORY MCH 28.3 27.5 - [facility] RYAN 32.1 pg [facility] LABORATORY MCHC 30.7 (L) 32.0 - [facility] 35.7 gm/dL [facility] LABORATORY Platelets 231 145 - 357 [facility] x10(3)/[facility] LABORATORY RDWSD 53.9 (H) 36.0 - [facility] 45.0 [facility] LABORATORY RDWCV 16.2 (H) 11.4 - [facility] 13.8 % [facility] LABORATORY MPV 8.7 7.6 - 12.9 [facility] LABORATORY nRBC % Auto 0.0 % [facility] LABORATORY nRBC Abs Auto 0.000 0.000 - [facility] 0.000 [facility] x10(3)/[employer] LABORATORY Specimen Anatomical Collection Method Collection Time Receive d Time (Source) Location / / Volume Laterality Blood specimen 08/10/2017 5:50 AM 018 5:59 (specimen) EST AM EST Resulting Agency Comment Spec In Lab Yonathan Smith MD HEMATOLOGY ORDERABLES Performing Organization Address City/State/[place] [address] (ABNORMAL) Basic Metabolic Panel (non-fasting) (08/10/2017 5:50 AM EST) athologist Signature Glucose Lvl 135 65 - 199 [facility] mg/dL [facility] [...] or in patients with acute kidney failure. [email or web address] Specimen Anatomical Collection Method Collection Time Receive d Time (Source) Location / / Volume Laterality Blood specimen 08/10/2017 5:50 AM 018 5:59 (specimen) EST AM EST Resulting Agency Comment Spec In Lab Yonathan Smith MD CHEMISTRY ORDERABLES Performing Organization Address City/[facility]/[place] [address] (ABNORMAL) Prothrombin Time (08/10/2017 [...] [facility]/[place] [address] (ABNORMAL) POCT Glucose (08/10/2017 4:01 AM EST) athologist Signature POC Glucose 206 (H) 65 - 199 [facility] mg/dL [facility] LABORATORY Comment: Supplemental ranges: <140 [...] [facility]/ZIP Code Phon [place] [address] POCT Glucose (08/10/2017 2:01 AM EST) athologist Signature POC Glucose 188 65 - 199 [place] RYAN mg/dL [facility] LABORATORY Comment: Supplemental ranges: <140 mg/dL before meals <180 mg/dL all other times of the day Specimen Anatomical Collection Method Collection Time Receive d Time (Source) Location / / Volume Laterality Blood specimen 08/10/2017 2:01 AM 018 2:01 (specimen) EST AM EST Yonathan Smith MD POINT OF CARE TEST ORDERABLE S Performing Organization Address City/State/[place] [address] (ABNORMAL) POCT Glucose (08/09/2017 11:42 PM EST) athologist Signature POC Glucose 283 (H) 65 - 199 [facility] mg/dL [facility] LABORATORY Comment: Supplemental ranges: <140 mg/dL before meals <180 mg/dL all other times of the day Specimen Anatomical Collection Method Collection Time Receive d Time (Source) Location / / Volume Laterality Blood specimen 08/09/2017 11:42 8 (specimen) PM EST 11:42 PM EST Yonathan Smith MD POINT OF CARE TEST ORDERABLE S Performing Organization Address City/State/[place] [address] POCT Glucose (08/09/2017 8:55 PM EST) athologist Signature POC Glucose 182 65 - 199 [facility] mg/dL [facility] LABORATORY Comment: Supplemental ranges: <140 mg/dL before meals <180 mg/dL all other times of the day Specimen Anatomical Collection Method Collection Time Receive d Time (Source) Location / / Volume Laterality Blood specimen 08/09/2017 8:55 PM 018 8:55 (specimen) EST PM EST Yonathan Smith MD POINT OF CARE TEST ORDERABLE S Performing Organization Address City/State/[place] [address] (ABNORMAL) APTT (08/09/2017 6:42 [...] Simth MD HEMATOLOGY ORDERABLES Performing Organization Address City/[facility]/ZIP [facility] Phon e Number [address] POCT Glucose (08/09/2017 4:41 PM EST) athologist Signature POC Glucose 195 65 - 199 [facility] LABORATORY Comment: Supplemental ranges: <140 [...] [facility]/[place] [address] POCT Glucose (08/09/2017 12:29 PM EST) athologist Signature POC Glucose 140 65 - 199 [facility]/dL [facility] LABORATORY Comment: Supplemental ranges: <140 mg/dL before meals <180 mg/dL all other times of the day Specimen Anatomical Collection Method Collection Time Receive d Time (Source) Location / / Volume Laterality Blood specimen 08/09/2017 12:29 8 (specimen) PM EST 12:29 PM EST Yonathan Smith MD POINT OF CARE TEST ORDERABLE S Performing Organization Address City/State/[place] [address] POCT Glucose (08/09/2017 9:59 AM EST) P athologist Signature POC Glucose 135 65 - 199 [facility] mg/dL [facility] LABORATORY Comment: Supplemental ranges: <140 [...] [facility]/[place] [address] Specimen to Pathology (08/09/2017 [...] [facility]/[place] [address] Surgical Pathology Report (08/09/2017 8:40 AM EST) Component Value Ref Test Analysis Performed At Patholo gist Range Method Time Signature Surgical [id number] ? Location: [facility]; [facility]; A [facility] Report The signing pathologist has [...] [facility] [place]. [facility] [place], [place], [place] CLINICAL INFORMATION Specimen Submitted: A [...] Organization Address City/State/[place] [address] Anaerobic Culture (08/09/2017 8:30 AM EST) [facility] gist Method Time Signature Anaerobic No anaerobic [facility] Culture organisms [facility] LABORATORY Specimen Anatomical Collection Method Collection [...] Organization Address City/State/[place] [address] (ABNORMAL) Abscess/Wound Aspirate Culture (08/09/2017 8:30 AM EST) Patholo gist Method Time Signature Abscess/Wound Moderate mixed [place] Aspirate bacterial [place] Culture morphotypes [facility] normal LABORATORY cutaneous leroy (A) Gram Stain Rare White Blood Cells [place] Few Gram Positive Cocci in pairs [place] () [facility] LABORATORY Organism Gram Positive [place] Cocci in pairs [place] () [facility] LABORATORY [...] [facility]/ZIP Code Phon e Number [address] POCT Glucose (08/09/2017 4:28 AM EST) P athologist Signature POC Glucose 128 65 - 199 [facility]/dL [facility] LABORATORY Comment: Supplemental ranges: <140 [...] [facility]/[place] [address] ABORH Recheck Status (08/09/2017 1:10 AM EST) [facility] gist Method Time Signature ABORH Type Completed [facility] LABORATORY Specimen Anatomical Collection Method Collection Time Receive d Time (Source) Location / / Volume Laterality Blood specimen 08/09/2017 1:10 AM 018 1:35 (specimen) EST AM EST Resulting Agency Comment Spec In Lab Yonathan Smith MD BLOOD BANK ORDERABLES Performing Organization Address City/[facility]/[place] [address] Antibody screen (08/09/2017 1:10 AM EST) [facility] Method Time Signature Ab Screen Negative [facility] LABORATORY Expires at 08/12/2017 [facility] [id number] on: [facility] LABORATORY Specimen Anatomical Collection Method Collection Time Receive d Time (Source) Location / / Volume Laterality Blood specimen 08/09/2017 1:10 AM 018 1:35 (specimen) EST AM EST Resulting Agency Comment Spec In Lab Yonathan Smith MD BLOOD BANK ORDERABLES Performing Organization Address City/[facility]/[place] [address] ABO/Rh Typing (08/09/2017 1:10 [...] [facility]/[place] [address] (ABNORMAL) APTT (08/09/2017 1:10 [...] Organization Address City/State/[place] [address] (ABNORMAL) Differential, Automated (08/09/2017 1:10 AM EST) [facility] gist Method Time Signature Neutrophils % 76.2 % [facility] LABORATORY Neutr Abs (ANC) 8.59 (H) 1.70 - [facility] 6.10 [facility] x10(3)/[facility] LABORATORY Lymphocytes % 11.0 % [facility] LABORATORY Lymphocytes Abs 1.2 0.9 - 3.2 [facility] x10(3)/[facility] LABORATORY Monocytes % 8.4 % [facility] LABORATORY Monocyte Abs 1.0 (H) 0.3 - 0.9 [facility] x10(3)/[facility] LABORATORY Eosinophils % 3.5 % [facility] LABORATORY Eosinophils Abs 0.4 0.0 - 0.4 [facility] x10(3)/[facility] LABORATORY Basophils % 0.5 % [facility] LABORATORY Basophils Abs 0.1 0.0 - 0.1 [facility] x10(3)/[facility] LABORATORY Immature Gran [...] Organization Address City/State/[place] [address] (ABNORMAL) Hemogram (08/09/2017 1:10 AM EST) Analysis Performed At Patho logist Time Signature WBC 11.3 (H) 4.0 - 9.5 [facility] x[facility](3)/[facility] LABORATORY RBC 3.47 (L) 4.58 - [facility] 5.54 [facility] x10(6)/[employer] LABORATORY Hemoglobin 10.0 (L) 13.7 - [facility] 16.5 gm/dL [facility] LABORATORY Hematocrit 31.9 (L) 40.5 - [facility] 48.5 % [facility] LABORATORY MCV 91.9 82.9 - [facility] 93.1 [facility] LABORATORY MCH 28.8 27.5 - [facility] 32.1 pg [facility] LABORATORY MCHC 31.3 (L) 32.0 - [facility] 35.7 gm/dL [facility] LABORATORY Platelets 234 145 - 357 [facility] x10(3)/[facility] LABORATORY RDWSD 54.0 (H) 36.0 - [facility] 45.0 [facility] LABORATORY RDWCV 16.2 (H) 11.4 - [facility] RYAN 13.8 % [facility] LABORATORY MPV 8.7 7.6 - 12.9 [facility] LABORATORY nRBC % Auto 0.0 % [facility] LABORATORY nRBC Abs Auto 0.000 0.000 - [facility] RYAN 0.000 [facility] x10(3)/[employer] LABORATORY Specimen Anatomical Collection Method Collection Time Receive d Time (Source) Location / / Volume Laterality Blood specimen 08/09/2017 1:10 AM 018 1:19 (specimen) EST AM EST Resulting Agency Comment Spec In Lab Yonathan Smith MD HEMATOLOGY ORDERABLES Performing Organization Address City/State/[place] [address] (ABNORMAL) Prothrombin Time (08/09/2017 [...] City/State/ZIP Code Phon e Number [place] [id number] (ABNORMAL) Basic Metabolic Panel (non-fasting) (08/09/2017 1:10 AM EST) athologist Signature Glucose Lvl 108 65 - 199 [facility] mg/dL [facility] [...] CENTER LABORATORY Estimated GFR 45 (L) >=60 [facility] LABORATORY Comment: The reported eGFR should be multiplied b y 1.2 for patients. The MDRD is not an appropriate measure o f renal function for patients with body mass extremes or in patients with acute kidney failure. [email or web address] [email or web address]/DHnkf Specimen Anatomical Collection Method Collection Time Receive d Time (Source) Location / / Volume Laterality Blood specimen 08/09/2017 1:10 AM 018 1:19 (specimen) EST AM EST Resulting Agency Comment Spec In Lab Yonathan Smith MD CHEMISTRY ORDERABLES Performing Organization Address City/[facility]/ZIP Code Phon e Number [address] POCT Glucose (08/09/2017 12:05 AM EST) athologist Signature POC Glucose 128 65 - 199 [facility]/dL [facility] LABORATORY Comment: Supplemental ranges: <140 [...] [facility]/[place] [address] (ABNORMAL) POCT Glucose (08/08/2017 7:36 PM EST) athologist Signature POC Glucose 215 (H) 65 - 199 [facility]/dL [facility] LABORATORY Comment: Supplemental ranges: <140 [...] [facility]/[place] [address] (ABNORMAL) POCT Glucose (08/08/2017 6:23 PM EST) athologist Signature POC Glucose 216 (H) 65 - 199 [facility] mg/dL [facility] LABORATORY Comment: Supplemental ranges: <140 mg/dL before meals <180 mg/dL all other times of the day Specimen Anatomical Collection Method Collection Time Receive d Time (Source) Location / / Volume Laterality Blood specimen 08/08/2017 6:23 PM 018 6:23 (specimen) EST PM EST Yonathan Smith MD POINT OF CARE TEST ORDERABLE S Performing Organization Address [facility]/[place] [address] (ABNORMAL) APTT (08/08/2017 6:00 [...] [facility]/[place] [address] POCT Glucose (08/08/2017 4:42 PM EST) athologist Signature POC Glucose 78 65 - 199 [facility] mg/dL [facility] LABORATORY Comment: Supplemental ranges: <140 mg/dL before meals <180 mg/dL all other times of the day Specimen Anatomical Collection Method Collection Time Receive d Time (Source) Location / / Volume Laterality Blood specimen 08/08/2017 4:42 PM 018 4:42 (specimen) EST PM EST Yonathan Smith MD POINT OF CARE TEST ORDERABLE S Performing Organization Address City/State/[place] [address] (ABNORMAL) POCT Glucose (08/08/2017 4:01 PM EST) P athologist Signature POC Glucose 58 (L) 65 - 199 [facility] mg/dL [facility] LABORATORY Comment: Supplemental ranges: <140 mg/dL before meals <180 mg/dL all other times of the day Specimen Anatomical Collection Method Collection Time Receive d Time (Source) Location / / Volume Laterality Blood specimen 08/08/2017 4:01 PM 018 4:01 (specimen) EST PM EST Yonathan Smith MD POINT OF CARE TEST ORDERABLE S Performing Organization Address City/State/[place] [address] POCT Glucose (08/08/2017 11:51 AM EST) P athologist Signature POC Glucose 90 65 - 199 [facility] mg/dL [facility] LABORATORY Comment: Supplemental ranges: <140 mg/dL before meals <180 mg/dL all other times of the day Specimen Anatomical Collection Method Collection Time Receive d Time (Source) Location / / Volume Laterality Blood specimen 08/08/2017 11:51 8 (specimen) AM EST 11:51 AM EST Yonathan Smith MD POINT OF CARE TEST ORDERABLE S Performing Organization Address City/State/ZIP Code Phon e Number [address] (ABNORMAL) APTT (08/08/2017 10:27 [...] [facility]/ZIP Code Phon e Number [address] POCT Glucose (08/08/2017 8:02 AM EST) athologist Signature POC Glucose 178 65 - 199 [facility] mg/dL [facility] LABORATORY Comment: Supplemental ranges: <140 [...] [facility]/[place] [address] (ABNORMAL) APTT (08/08/2017 4:51 AM EST) athologist Signature PTT >160 25 - 35 [facility] (Critical) sec [facility] LABORATORY Comment: Called by: HOWARD, Read [...] Address City/State/ZIP [place] [address] (ABNORMAL) Differential, Automated (08/08/2017 4:51 AM EST) [facility] Method Time Signature Neutrophils % 77.9 % [facility] LABORATORY Neutr Abs (ANC) 8.17 (H) 1.70 - [facility] 6.10 [facility] x10(3)/[facility] LABORATORY Lymphocytes % 10.3 % [facility] LABORATORY Lymphocytes Abs 1.1 0.9 - 3.2 [facility] x10(3)/[facility] LABORATORY Monocytes % 7.0 % [facility] LABORATORY Monocyte Abs 0.7 0.3 - 0.9 [facility] x10(3)/[facility] LABORATORY Eosinophils % 3.6 % [facility] LABORATORY Eosinophils Abs 0.4 0.0 - 0.4 [facility] x10(3)/[facility] LABORATORY Basophils % 0.5 % [facility] LABORATORY Basophils Abs 0.0 0.0 - 0.1 [facility] x10(3)/[facility] LABORATORY Immature Gran % 0.70 % [...] Organization Address City/State/[place] [address] (ABNORMAL) Hemogram (08/08/2017 4:51 AM EST) Analysis Performed At Patho logist Time Signature WBC 10.5 (H) 4.0 - 9.5 [facility] x[facility](3)/[facility] LABORATORY RBC 3.27 (L) 4.58 - [place] RYAN 5.54 [facility] x10(6)/[employer] LABORATORY Hemoglobin 9.3 (L) 13.7 - [facility] 16.5 gm/dL [facility] LABORATORY Hematocrit 30.3 (L) 40.5 - [facility] 48.5 % [facility] LABORATORY MCV 92.7 82.9 - [facility] 93.1 [facility] LABORATORY MCH 28.4 27.5 - [place] [facility] 32.1 pg [facility] LABORATORY MCHC 30.7 (L) 32.0 - [facility] 35.7 gm/dL [facility] LABORATORY Platelets 252 145 - 357 [facility] x10(3)/[facility] LABORATORY RDWSD 54.6 (H) 36.0 - [facility] 45.0 [facility] LABORATORY RDWCV 16.2 (H) 11.4 - [facility] 13.8 % [facility] LABORATORY MPV 9.1 7.6 - 12.9 [facility] LABORATORY nRBC % Auto 0.0 % [facility] LABORATORY nRBC Abs Auto 0.000 0.000 - [facility] 0.000 [facility] x10(3)/[employer] LABORATORY Specimen Anatomical Collection Method Collection Time Receive d Time (Source) Location / / Volume Laterality Blood specimen 08/08/2017 4:51 AM 018 5:14 (specimen) EST AM EST Resulting Agency Comment Spec In Lab Yonathan Smith MD HEMATOLOGY ORDERABLES Performing Organization Address City/State/ZIP Code Phon e Number [place] [id number]OSP[address] LAB[address]ORY Drive (ABNORMAL) Prothrombin Time (08/08/2017 [...] Organization Address City/State/[place] [address] (ABNORMAL) Basic Metabolic Panel (non-fasting) (08/08/2017 4:51 AM EST) athologist Signature Glucose Lvl 229 (H) 65 - 199 [facility] mg/dL [facility] [...] or in patients with acute kidney failure. [email or web address] [email or web address] Specimen Anatomical Collection Method Collection Time Receive d Time (Source) Location / / Volume Laterality Blood specimen 08/08/2017 4:51 AM 018 5:14 (specimen) EST AM EST Resulting Agency Comment Spec In Lab Yonathan Smith MD CHEMISTRY ORDERABLES Performing Organization Address City/[facility] Phon e Number [address] POCT Glucose (08/08/2017 4:20 AM EST) athologist Signature POC Glucose 193 65 - 199 [facility]/dL [facility] LABORATORY Comment: Supplemental ranges: <140 [...] [facility]/ZIP Code Phon e Number [address] POCT Glucose (08/07/2017 11:11 PM EST) P athologist Signature POC Glucose 124 65 - 199 [facility] mg/dL [facility] LABORATORY Comment: Supplemental ranges: <140 [...] [facility]/[place] [address] (ABNORMAL) APTT (08/07/2017 10:18 [...] Smith MD HEMATOLOGY ORDERABLES Performing Organization Address [facility]/[place] [address] POCT Glucose (08/07/2017 8:10 PM EST) athologist Signature POC Glucose 140 65 - 199 [facility]/dL [facility] LABORATORY Comment: Supplemental ranges: <140 [...] [facility]/ZIP Code Phon e Number [address] POCT Glucose (08/07/2017 5:27 PM EST) athologist Signature POC Glucose 187 65 - 199 [facility] mg/dL [facility] LABORATORY Comment: Supplemental ranges: <140 [...] [facility]/ZIP Code Phon e Number [address] POCT Glucose (08/07/2017 3:29 PM EST) athologist Signature POC Glucose 86 65 - 199 [facility]/dL [facility] LABORATORY Comment: Supplemental ranges: <140 mg/dL before meals <180 mg/dL all other times of the day Specimen Anatomical Collection Method Collection Time Receive d Time (Source) Location / / Volume Laterality Blood specimen 08/07/2017 3:29 PM 018 3:29 (specimen) EST PM EST Yonathan Smith MD POINT OF CARE TEST ORDERABLE S Performing Organization Address [facility] [place] [address] (ABNORMAL) APTT (08/07/2017 2:50 [...] Organization Address City/[facility]/ZIP [facility] [place] [address] (ABNORMAL) POCT Glucose (08/07/2017 2:23 PM EST) athologist Signature POC Glucose 55 (L) 65 - 199 [facility] mg/dL [facility] LABORATORY Comment: Supplemental ranges: <140 mg/dL before meals <180 mg/dL all other times of the day Specimen Anatomical Collection Method Collection Time Receive d Time (Source) Location / / Volume Laterality Blood specimen 08/07/2017 2:23 PM 018 2:23 (specimen) EST PM EST Yonathan Smith MD POINT OF CARE TEST ORDERABLE S Performing Organization Address City/State/ZIP Code Phon e Number [address] POCT Glucose (08/07/2017 12:08 PM EST) P athologist Signature POC Glucose 77 65 - 199 [facility] mg/dL [facility] LABORATORY Comment: Supplemental ranges: <140 mg/dL before meals <180 mg/dL all other times of the day Specimen Anatomical Collection Method Collection Time Receive d Time (Source) Location / / Volume Laterality Blood specimen 08/07/2017 12:08 8 (specimen) PM EST 12:08 PM EST Yonathan Smith MD POINT OF CARE TEST ORDERABLE S Performing Organization Address City/State/[place] [address] (ABNORMAL) Differential, Automated (08/07/2017 7:30 AM EST) Patholo gist Method Time Signature Neutrophils % 73.8 % [facility] LABORATORY Neutr Abs (ANC) 7.17 (H) 1.70 - [facility] 6.10 [facility] x10(3)/[facility] LABORATORY Lymphocytes % 12.2 % [facility] LABORATORY Lymphocytes Abs 1.2 0.9 - 3.2 [facility] x10(3)/[facility] LABORATORY Monocytes % 9.0 % [facility] LABORATORY Monocyte Abs 0.9 0.3 - 0.9 [facility] x10(3)/[facility] LABORATORY Eosinophils % 3.9 % [facility] LABORATORY Eosinophils Abs 0.4 0.0 - 0.4 [facility] x10(3)/[facility] LABORATORY Basophils % 0.6 % [facility] LABORATORY Basophils Abs 0.1 0.0 - 0.1 [facility] x10(3)/[facility] LABORATORY Immature Gran % 0.50 % [...] Organization Address City/State/[place] [address] (ABNORMAL) Hemogram (08/07/2017 7:30 AM EST) Analysis Performed At Patho logist Time Signature WBC 9.7 (H) 4.0 - 9.5 [facility] x10(3)/[facility] LABORATORY RBC 3.54 (L) 4.58 - [facility] 5.54 [facility] x10(6)/[employer] LABORATORY Hemoglobin 9.9 (L) 13.7 - [facility] 16.5 gm/dL [facility] LABORATORY Hematocrit 32.3 (L) 40.5 - [facility] 48.5 % [facility] LABORATORY MCV 91.2 82.9 - [facility] 93.1 [facility] LABORATORY MCH 28.0 27.5 - [facility] 32.1 pg [facility] LABORATORY MCHC 30.7 (L) 32.0 - [facility] 35.7 gm/dL [facility] LABORATORY Platelets 312 145 - 357 [facility] x10(3)/[facility] LABORATORY RDWSD 53.2 (H) 36.0 - [facility] 45.0 [facility] RDWCV 16.0 (H) 11.4 - [facility] 13.8 % [facility] LABORATORY MPV 8.9 7.6 - 12.9 [facility] LABORATORY nRBC % Auto 0.0 % [facility] LABORATORY nRBC Abs Auto 0.000 0.000 - [facility] 0.000 [facility] x10(3)/[employer] LABORATORY Specimen Anatomical Collection Method Collection Time Receive d Time (Source) Location / / Volume Laterality Blood specimen 08/07/2017 7:30 AM 018 7:45 (specimen) EST AM EST Resulting Agency Comment Spec In Lab Yonathan Smith MD HEMATOLOGY ORDERABLES Performing Organization Address City/State/[place] [address] (ABNORMAL) Basic Metabolic Panel (non-fasting) (08/07/2017 7:30 AM EST) P athologist Signature Glucose Lvl 80 65 - 199 [facility] mg/dL [facility] [...] CENTER LABORATORY Estimated GFR 59 (L) >=60 [facility] LABORATORY Comment: The reported eGFR should be multiplied b y 1.2 for patients. The MDRD is not an appropriate measure o f renal function for patients with body mass extremes or in patients with acute kidney failure. [email or web address] [email or web address] Specimen Anatomical Collection Method Collection Time Receive d Time (Source) Location / / Volume Laterality Blood specimen 08/07/2017 7:30 AM 018 7:45 (specimen) EST AM EST Resulting Agency Comment Spec In Lab Yonathan Smith MD CHEMISTRY ORDERABLES Performing Organization Address City/[facility]/ZIP Code Phon e Number [address] POCT Glucose (08/07/2017 7:27 AM EST) athologist Signature POC Glucose 81 65 - 199 [facility] mg/dL [facility] Comment: Supplemental ranges: <140 [...] [facility]/ZIP Code Phon e Number [address] APTT (08/07/2017 7:04 [...] [facility]/ZIP Code Phon e Number [address] (ABNORMAL) Prothrombin Time (08/07/2017 [...] Address City/State/ZIP Code Phon e Number [address] POCT Glucose (08/07/2017 4:03 AM EST) athologist Signature POC Glucose 93 65 - 199 [facility] Comment: Supplemental ranges: <140 mg/dL before meals <180 mg/dL all other times of the day Specimen Anatomical Collection Method Collection Time Receive d Time (Source) Location / / Volume Laterality Blood specimen 08/07/2017 4:03 AM 018 4:03 (specimen) EST AM EST Yonathan Smith MD POINT OF CARE TEST ORDERABLE S Performing Organization Address City/State/ZIP Code Phon e Number [address] POCT Glucose (08/07/2017 12:04 AM EST) athologist Signature POC Glucose 107 65 - 199 [facility] Comment: Supplemental ranges: <140 mg/dL before meals <180 mg/dL all other times of the day Specimen Anatomical Collection Method Collection Time Receive d Time (Source) Location / / Volume Laterality Blood specimen 08/07/2017 12:04 8 (specimen) AM EST 12:04 AM EST Yonathan Smith MD POINT OF CARE TEST ORDERABLE S Performing Organization Address City/State/ZIP Code Phon e Number [address] POCT Glucose (08/06/2017 7:56 PM EST) P athologist Signature POC Glucose 178 65 - 199 [facility]dL [facility] Comment: Supplemental ranges: <140 mg/dL before meals <180 mg/dL all other times of the day Specimen Anatomical Collection Method Collection Time Receive d Time (Source) Location / / Volume Laterality Blood specimen 08/06/2017 7:56 PM 018 7:56 (specimen) EST PM EST Yonathan Smith MD POINT OF CARE TEST ORDERABLE S Performing Organization Address City/State/ZIP Code Phon e Number [address] TcPO2 (08/06/2017 2:32 PM EST) Component Value Ref Test Analysis Performed At Patholo gist Range Method Time Signature VB Text Department: Vascular Surgery Lab VASCUBASE Report Patient: [id number] (GREGORY HOANG) CPT: 2706040 ICD10: I99.8 Referring Physician: YONATHAN SMITH ?? [...]
Routine documented in this encounter Care Teams Helicopter Mechanic Relationship Specialty Start Date End Date Lovely Vicente MD PCP - General 04/16/[address] [place] [address] documented as of this encounter
--- OUTSIDE RECORDS SUMMARY | 2022-05-11 08:46 | XMS_ITS | Encounter Summary ---
:1945 [place] [address] Care Team Providers Name Role Phone Lovely Vicente MD Primary Care Provider Reason for Visit Auth/Cert Specialty Diagnoses / Procedures Referred By Contact Refer red To Contact Diagnoses Critical lower limb ischemia CELLULITIS RT FOOT Procedures EMERGENCY Referral ID Status Reason Start Date Expiration Date Visits Requ ested Visits Authorized [id number] 1 1 Encounter Details Date Type Department Care Team Description 08/09/2017 Anesthesia Event Main Operating Room Daniele Lizama MD [facility] [place] [address] [facility] Rob Jones MD [facility] [place] [address] [place] [address] Anesthesia Record Procedure Summary Procedure Name [...] Knowles, Dory arm), right; VAMSI Rios, RN ypzc-zae-mpythe catheter system; 20 gauge; 08/16/17; 1047 PIV 07/29/17; 1413; median 07/29/17 1413 by 08/16/17 1047 by cubital vein (antecubital Magdalene Hickey Williams, Dory fossa), left; VAMSI Wyatt, RN aqya-ntg-rvgluw catheter system; 20 gauge; 08/16/17; 1047 PIV 08/06/17; 1742; cephalic 08/06/17 1742 by 0920 by vein (lateral side of Taylor Laureano Danah y, Caitlyn C, arm), right; VAMSI BONNER wmnn-bmr-cbkyle catheter system; 22 gauge, 1 in length; Eliseo LAUREANO RN VAS; distraction, intradermal injection, tolerated well, appears comfortable; 0; 08/16/17; 0920 Wound 08/07/17; 1335; knee; 08/07/17 1335 by 08/16/17 1047 by laceration; wound occured Barbara Albert iams, Dory HIDE MILL MAN; 08/16/17; 1047 VAMSI Alonzo, RN PIV 08/07/17; 1734; cephalic 08/07/17 1734 by 1047 by vein (lateral side of Kendrick, Carlos W, Willia ms, Dory arm), left; MARCIE Wyatt RN qbkn-xrz-nvxjiu catheter system; 22 gauge; distraction, intradermal injection, [...] Santillan MD - 08/09/2017 9:01 AM EST [facility] Department of Anesthesiology Post-procedure Note Patient: Don Fatima Procedure Summary Date Anesthesia Start Anesthesia Stop Room / Location 08/09/17 0802 0901 [facility] OR 14 / [facility] MAIN OR Procedure Diagnosis Surgeon Responsible Provider AMPUTATION, 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 Nerve [...] MD at [facility] MAIN OR Social History Substance Use [...] adequate IV access. Brody Santillan MD PGY-2, Fish Processing Supervisor Pager #[phone] Anesthesiology Staff (Dewhirst): Pre-op summary note as [...] Zulma Dolan MD [facility] [address] [place], [place] [address] (Wo rk) 05/28/2022 Laboratory Appointment Lab 05/28/2022 Office Visit Cardiology Zulma Dolan MD [facility] [place] [address] Liz Poole PA [facility] [place] [address] 06/10/2022 Office Visit Dermatology Laura Scherer MD [facility] [address] [place], [place] [address] (Wo rk) documented as of [...] Length: 10 cm Gauge: 21 Needle Type: X-tpzlh-tuvcu Medication injection made in crementally with aspirations. [...] documented in this encounter Care Teams Senior Microsoft Consultant Relationship Specialty Start Date End Date Lovely Vicente MD PCP - General 04/16/[address] [place] [address] documented as of this encounter
--- OUTSIDE RECORDS SUMMARY | 2022-05-11 08:46 | XMS_ITS | Encounter Summary ---
:1945 Author Organization [facility] [address] Care Team Providers Name Role Phone Lovely Vicente MD Primary Care Provider Encounter Details Date Type Department Care Team Description 08/04/2017 Orders Only Cardiac Surgery Makayla Wilson APRN [facility] [place] [address] CARDIAC SURGERY [phone] [place], [place] [address] (Wo rk) Social History Tobacco [...] MD [facility] [place], [place] [address] (Wo rk) 05/28/2022 Laboratory Appointment Lab 05/28/2022 Office Visit Cardiology Zulma Dolan MD [facility] [place] [address] Liz Poole PA [facility] [place] [address] 06/10/2022 Office Visit Dermatology Laura Scherer MD [facility] ER DR [address] [place], [place] [address] (Wo rk) documented as of this encounter Visit Diagnoses Not on filedocumented in this encounter Care Teams Cell Maker Relationship Specialty Start Date End Date Lovely Vicente MD PCP - General 04/16/[address] [place] [address] documented as of this encounter
--- OUTSIDE RECORDS SUMMARY | 2022-05-11 08:46 | XMS_ITS | Encounter Summary ---
:1945 Author Organization [facility] [place] [address] Care Team Providers Name Role Phone Lovely Vicente MD Primary Care Provider Reason for Visit Auth/Cert Specialty Diagnoses / Procedures Referred By Contact Refer red To Contact Diagnoses Critical lower limb ischemia CELLULITIS RT FOOT Procedures EMERGENCY Referral ID Status Reason Start Date Expiration Date Visits Requ ested Visits Authorized [id number] 1 1 Encounter Details Date Type Department Care Team Description 08/06/2017 Clinical Support Same Day at [facility] Ischemia of foot [facility] [place] [address] Social History Tobacco Use Types Packs/Day [...] noother symptoms except severe right foot pain. [facility] clinic called as pt on route there [...] Dolan MD [facility] [address] [place], [place] [address] (Wo rk) 05/28/2022 Laboratory Appointment Lab 05/28/2022 Office Visit Cardiology Zulma Dolan MD [facility] [place] [address] Liz Poole PA [facility] [place] [address] 06/10/2022 Office Visit Dermatology Laura Scherer MD [facility] [address] [place], [place] [address] (Wo rk) documented as [...] 444 ms MUSE SYSTEM (Bezet) Calculated P [place] 44 degrees MUSE SYSTEM Calculated R [place] -31 degrees MUSE SYSTEM Calculated T [place] 106 degrees MUSE SYSTEM INTERPRETATION Normal sinus [...] disorder documented in this encounter Care Teams Block Machine Operator Relationship Specialty Start Date End Date Lovely Vicente MD PCP - General 04/16/[address] [place] [address] documented as of this encounter
--- OUTSIDE RECORDS SUMMARY | 2022-05-11 08:46 | XMS_ITS | Encounter Summary ---
:1945 Author Organization [facility] [place] [address] Care Team Providers Name Role Phone Lovley Vicente MD Primary Care Provider Encounter Details Date Type Department Care Team Description 08/04/2017 Orders Only Cardiac Surgery Makayla Wilson APRN [facility] [place] [address] CARDIAC SURGERY [phone] [place], [place] [address] (Wo rk) Social History [...] MD [facility] er [place] [address] (Wo rk) 05/28/2022 Laboratory Appointment Lab 05/28/2022 Office Visit Cardiology Zulma Dolan MD [facility] [place] [address] Liz Poole PA [facility] [place] [address] 06/10/2022 Office Visit Dermatology Laura Scherer MD [facility] ER DR [address] [place], [place] [address] (Wo rk) documented as of this encounter Visit Diagnoses Not on filedocumented in this encounter Care Teams Music Journalist Relationship Specialty Start Date End Date Lovely Vicente MD PCP - General 04/16/[address] [place] [address] documented as of this encounter
--- OUTSIDE RECORDS SUMMARY | 2022-05-11 08:46 | XMS_ITS | Encounter Summary ---
:1945 Author [place] [address] Care Team Providers Name Role Phone Lovely Vicente MD Primary Care Provider Encounter Details Date Type Department Care Team Description 08/04/2017 Notes Only Pain Management at Barbra Bruno, STACIE [facility] [place] [address] [place] [address] [phone] (Wo rk) Social History Tobacco Use Types [...] bid) at this time. Barbra Soares, MSN, SONAR WATCHSTANDER-BC, [facility] documented in this encounter Plan of Treatment Upcoming Encounters Date Type Specialty Care Team Description 05/28/2022 Appointment Cardiology Zulma Dolan MD [facility] [address] [place], [place] [address] (Wo rk) 05/28/2022 Laboratory Appointment Lab 05/28/2022 Office Visit Cardiology Zulma Dolan MD [facility] [place] [address] Liz Poole PA [facility] [place] [address] 06/10/2022 Office Visit Dermatology Laura Scherer MD [facility] DR [address] [place], [place] [address] (Wo rk) documented as of this encounter Visit Diagnoses Not on filedocumented in this encounter Care Teams Health Physicist Relationship Specialty Start Date End Date Lovely Vicente MD PCP - General 04/16/[address] [place] [address] documented as of this encounter
--- OUTSIDE RECORDS SUMMARY | 2022-05-11 08:47 | XMS_ITS | Encounter Summary ---
:1945 Author Organization [facility] [place] [address] Care Team Providers Name Role Phone Lovely Vicente MD Primary Care Provider Reason for Visit Auth/Cert Specialty Diagnoses / Procedures Referred By Contact Refer red To Contact Diagnoses Critical lower limb ischemia CELLULITIS RT FOOT Procedures EMERGENCY Referral ID Status Reason Start Date Expiration Date Visits Requ ested Visits Authorized [id number] 1 1 Encounter Details Date Type Department Care Team Description 08/04/2017 Hospital Encounter XRay at [facility] Danette Maxwell Incisional pain [address] [place] [address] Dr Gomes, OIL DIPPER [facility] [address] CARDIOLOGY [place], [place] [address] Social History Tobacco Use [...] Zulma Dolan MD [facility] [place], [place] [address] (Wo rk) 05/28/2022 Laboratory Appointment Lab 05/28/2022 Office Visit Cardiology Zulma Dolan MD [facility] [place] [address] Liz Poole PA [facility] [place] [address] 06/10/2022 Office Visit Dermatology Laura Scherer MD [facility] DR [address] [place], [...] original. EXAMINATION: XR CHEST PA AND LATERAL ([facility]) CLINICAL HISTORY: Checking sternal stabi lity/assess wires [...] Daniele gutiérrez 08/04/2017 4:13 PM Danette Maxwell OIL DIPPER IMG DX ORDERABLES documented in this encounter Visit Diagnoses Diagnosis Incisional pain Disturbance of skin sensation documented in this encounter Care Teams Architectural Modeler Relationship Specialty Start Date End Date Lovely Vicente MD PCP - General 04/16/[address] [place] [address] documented as of this encounter
--- OUTSIDE RECORDS SUMMARY | 2022-05-11 08:47 | XMS_ITS | Encounter Summary ---
:1945 Author Organization [facility] [place] [address] Care Team Providers Name Role Phone Lovely Vicente MD Primary Care Provider Encounter Details Date Type Department Care Team Description 08/03/2017 Telephone Pain Management at [place], [place] [address] Social History Tobacco Use Types Packs/Day [...] Management Center Preauthorization Request Patient: Don Fatima [id number] Fax received from [email or web address] requesting we obtain prior authorization for Lidocaine Patches prescribed by Barbra Soares APRN. RX insurance plan: [email or web address] insurance telephone: [phone] Patient ?? Diagnosis: right foot pain secondary to PVD and ischemia ?? Previous medications attempted: Tylenol, Tramadol, Dilaudid Authorization/Reference number: [id number], PBP Code 801 _x_ denied, provider and patient informed _x_ appeal initiated by provider, patient informed Angeles Rodrigez, RN documented in this encounter Plan of Treatment Upcoming Encounters Date Type Specialty Care Team Description 05/28/2022 Appointment Cardiology Zulma Dolan MD [facility] [place], [place] [address] (Wo rk) 05/28/2022 Laboratory Appointment Lab 05/28/2022 Office Visit Cardiology Zulma Dolan MD [facility] [place] [address] Liz Poole PA [facility] [place] [address] 06/10/2022 Office Visit Dermatology Laura Scherer MD [facility] DR [address] [place], [place] [address] (Wo rk) documented as of this encounter Visit Diagnoses Not on filedocumented in this encounter Care Teams Kennel Operator Relationship Specialty Start Date End Date Lovely Vicente MD PCP - General 04/16/[address] [place] [address] documented as of this encounter
--- OUTSIDE RECORDS SUMMARY | 2022-05-11 08:47 | XMS_ITS | Encounter Summary ---
:1945 Author Organization [place] [address] Care Team Providers Name Role Phone Lovely Vicente MD Primary Care Provider Reason for Visit Auth/Cert Specialty Diagnoses / Procedures Referred By Contact Refer red To Contact Diagnoses Critical lower limb ischemia CELLULITIS RT FOOT Procedures EMERGENCY Referral ID Status Reason Start Date Expiration Date Visits Requ ested Visits Authorized [id number] 1 1 Encounter Details Date Type Department Care Team Description 08/04/2017 Laboratory Appointment Lab [facility] [place] [address] Social History Tobacco Use Types Packs/Day [...] [facility] [place] [address] [place] [address] (Wo rk) 05/28/2022 Laboratory Appointment Lab 05/28/2022 Office Visit Cardiology Zulma Dolan MD [facility] [place] [address] Liz Poole PA [facility] [place] [address] 06/10/2022 Office Visit Dermatology Laura Scherer MD [facility] DR [address] [place], [place] [address] (Wo rk) documented as of this encounter Visit Diagnoses Not on filedocumented in this encounter Care Teams Contractor Buyer Relationship Specialty Start Date End Date Lovely Vicente MD PCP - General 04/16/15 [facility] [address] [place], [place] [address] documented as of this encounter
--- OUTSIDE RECORDS SUMMARY | 2022-05-11 08:47 | XMS_ITS | Encounter Summary ---
:1945 Author Organization [facility] [place] [address] Care Team Providers Name Role Phone Lovely Vicente MD Primary Care Provider Encounter Details Date Type Department Care Team Description 07/29/2017 Transcribe Orders Laboratory Lovely Vicente MD [address] [address] [place] [address] [phone] (Wo rk) Social History Tobacco Use Types [...] [facility] er [address] [place] [address] (Wo rk) 05/28/2022 Laboratory Appointment Lab 05/28/2022 Office Visit Cardiology Zulma Dolan MD [place] [address] Liz Poole PA [facility] [place] [address] 06/10/2022 Office Visit Dermatology Laura Scherer MD [facility] ER DR [address] [place], [place] [address] (Wo rk) documented as of this encounter Visit Diagnoses Not on filedocumented in this encounter Care Teams Director Of Public Relations Relationship Specialty Start Date End Date Lovely Vicente MD PCP - General 04/16/[address] [place] [address] documented as of this encounter
--- OUTSIDE RECORDS SUMMARY | 2022-05-11 08:47 | XMS_ITS | Encounter Summary ---
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 [...] [facility] ??? 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 Hank Zhang Vascular Surgery, PGY2 Pager #[phone] Associated attestation - Arik Clement MD - [...] Zulma Dolan MD [facility] [place], [place] [address] (Wo rk) 05/28/2022 Laboratory Appointment Lab 05/28/2022 Office Visit Cardiology Zulma Dolan MD [facility] [place] [address] Liz Poole PA [facility] [place] [address] 06/10/2022 Office Visit Dermatology Laura Scherer MD [facility] [address]-DERMAT [place]LOGY [place], [place] [address] (Wo rk) documented as of [...] Ref Test Analysis Performed At [facility] Range Method Time Signature VB Text Department: Vascular Surgery Lab VASCUBASE Report Patient: [id number] (GREGORY FATIMA) CPT: 11646 ICD10: I82.541 Referring Physician: TAMIKO JIMÉNEZ ?? [...] [facility] mg/dL [facility] Comment: Supplemental [...] Address City/State/ZIP Code Phon e Number [address] (ABNORMAL) D-Dimer, Quantitative (07/29/2017 2:15 PM EST) [facility] [employer] Software Method Time Signature D-Dimer, Quant 1,699 (H) 0 - 500 [facility] FEU ng/ml [facility] Comment: The D-Dimer assay [...] Address City/State/[place] [address] (ABNORMAL) Differential, Automated (07/29/2017 2:15 PM EST) [facility] [employer] Method Time Signature Neutrophils % 82.5 % [facility] Neutr Abs (ANC) 10.21 (H) 1.70 - [facility] 6.10 [facility] x10(3)/[facility] L LABORATORY Lymphocytes % 7.1 % [facility] Lymphocytes Abs 0.9 0.9 - 3.2 [facility] x10(3)/[facility] LABORATORY Monocytes % 6.5 % [facility] Monocyte Abs 0.8 0.3 - 0.9 [facility] x10(3)/[facility] LABORATORY Eosinophils % 2.7 % [facility] Eosinophils Abs 0.3 0.0 - 0.4 [facility] x10(3)/[facility] LABORATORY Basophils % 0.6 % [facility] Basophils Abs 0.1 0.0 - 0.1 [facility] x10(3)/[facility] LABORATORY Immature Gran [...] Abs 0.08 (H) 0.00 - 0.04 x10(3)/[facility] LABORATORY Specimen Anatomical Collection Method Collection Time Receive d Time (Source) Location / / Volume Laterality Blood specimen 07/29/2017 2:15 PM 018 2:36 (specimen) EST PM EST Resulting Agency Comment Spec In Lab Tamiko Jiménez MD HEMATOLOGY ORDERABLES Performing Organization Address City/State/[place] [address] (ABNORMAL) Hemogram (07/29/2017 2:15 PM EST) Analysis Performed At Patho logist Time Signature WBC 12.4 (H) 4.0 - 9.5 [facility] x10(3)/[facility] LABORATORY RBC 4.17 (L) 4.58 - [facility] 5.54 [facility] x10(6)/[facility] LABORATORY Hemoglobin 12.1 (L) 13.7 - [facility] 16.5 gm/dL [facility] Hematocrit 38.1 (L) 40.5 - [facility] 48.5 % [facility] MCV 91.4 82.9 - [facility] 93.1 [facility] LABORATORY MCH 29.0 27.5 - [facility] 32.1 pg [facility] MCHC 31.8 (L) 32.0 - [facility] RYAN 35.7 gm/dL [facility] Platelets 204 145 - 357 [facility] x10(3)/[facility] LABORATORY RDWSD 50.5 (H) 36.0 - [facility] 45.0 [facility] LABORATORY RDWCV 15.3 (H) 11.4 - [facility] R[facility] 13.8 % [facility]OR[facility] MPV 9.4 7.6 - 12.9 [facility] LABORATORY nRBC % Auto 0.0 % [facility] nRBC Abs Auto 0.000 0.000 - [facility] 0.000 [facility] x10(3)/[facility] LABORATORY Specimen Anatomical Collection Method Collection Time Receive d Time (Source) Location / / Volume Laterality Blood specimen 07/29/2017 2:15 PM 018 2:36 (specimen) EST PM EST Resulting Agency Comment Spec In Lab Tamiko Jiménez MD HEMATOLOGY ORDERABLES Performing Organization Address City/State/[place] [address] (ABNORMAL) Prothrombin Time (07/29/2017 [...] City/State/ZIP Code Phon e Number [place] [id number] LAB[address] Arterial Duplex Leg, Unil (07/29/2017 11:50 AM EST) Component Value Ref Test Analysis Performed At [facility] Range Method Time Signature VB Text Department: Vascular Surgery Lab VASCUBASE Report Patient: [id number] (GREGORY FATIMA) CPT: 84754 ICD10: Z09;I97.610 Referring Physician: TAMIKO JIMÉNEZ ?? [...] Ref Test Analysis Performed At [facility] Range Method Time Signature VB Text Department: Vascular Surgery Lab VASCUBASE Report Patient: [id number] (GREGORY FATIMA) CPT: 90728 ICD10: I82.441 Referring Physician: TAMIKO JIMÉNEZ ?? [...] he calf. Notification: Marquis Pathak MD (pager #[phone]) was notif ied of the preliminary findings. [...] STAT documented in this encounter Care Teams Biofuels Operations Manager Relationship Specialty Start Date End Date Lovely Vicente MD PCP - General 04/16/[address] [place] [address] [address] [place] [address] documented as of this encounter
--- OUTSIDE RECORDS SUMMARY | 2022-05-11 08:47 | XMS_ITS | Encounter Summary ---
:1945 Author Organization [facility] Address [facility] [place] [address] Care Team Providers Name Role Phone Lovely Vicente MD Primary Care Provider Reason for Visit Auth/Cert Specialty Diagnoses / Procedures Referred By Contact Refer red To Contact Diagnoses Critical lower limb ischemia CELLULITIS RT FOOT Procedures EMERGENCY Referral ID Status Reason Start Date Expiration Date Visits Requ ested Visits Authorized [id number] 1 1 Encounter Details Date Type Department Care Team Description 08/04/2017 Laboratory Lab 3L [place] Cardiomyopathy, unspecified type; Appointment [facility] Systolic congestive heart failure, unspecified congestive heart failure chronicity; Hospital Coronary artery rupture; [facility] Ischemic cardiomyopathy; Drive Atherosclerosis of atka co ronary artery, angina presence unspecified, unspecified whether atka or transplanted heart; [place], [place] Essential hyper tension, malignant; [address] 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, unspecified 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 [phone] Social History Tobacco Use Types Packs/Day Years [...] MD [facility] [address] [place] [address] (Wo rk) 05/28/2022 Laboratory Appointment Lab 05/28/2022 Office Visit Cardiology Zulma Dolan MD [facility] [place] [address] Liz Poole PA [facility] [place] [address] 06/10/2022 Office Visit Dermatology Laura Scherer MD [facility] ER [address] [place], [place] [address] (Wo rk) documented as of this encounter Procedures Procedure Name Priority Date/Time Associated Diagnosis Comme nts HEMOGRAM Routine 08/04/2017 12:55 Essential Results for this PM EST hypertension, procedure are in malignant the results section. PROTHROMBIN TIME Routine 08/04/2017 12:55 Coronary artery Resu lts for this PM EST rupture procedure are in Ischemic the results cardiomyopathy section. Atherosclerosis of atka coronary artery, angina presence unspecified, unspecified whether atka or transplanted heart URIC ACID Routine 08/04/2017 [...] with the results diabetic section. nephropathy, unspecified prison insulin use status Essential hypertension, malignant COMPREHENSIVE Routine 08/04/2017 12:55 Essential Results fo r this METABOLIC PANEL PM EST hypertension, procedure a re in (NON-FASTING) malignant the results section. documented in this encounter Results Uric acid (08/04/2017 12:55 PM EST) P athologist Signature Uric Acid 7.1 3.5 - 8.5 [facility] Specimen Anatomical Collection Method Collection Time Receive d Time (Source) Location / / Volume Laterality Blood specimen 08/04/2017 12:55 8 1:01 (specimen) PM EST PM EST Resulting Agency Comment Spec In Lab Lovely Vicente MD CHEMISTRY ORDERABLES Performing Organization Address City/[facility]/[place] [address] (ABNORMAL) Hemogram (08/04/2017 12:55 PM EST) Analysis Performed At Patho logist Time Signature WBC 15.8 (H) 4.0 - 9.5 [facility] x[facility](3[facility] LABORATORY RBC 3.48 (L) 4.58 - [facility] RYAN 5.54 [facility] x10(6)/[facility] LABORATORY Hemoglobin 9.9 (L) 13.7 - [facility] 16.[facility] gm/dL [facility] Hematocrit 31.4 (L) 40.5 - [facility] 48.5 % [facility] MCV 90.2 82.9 - [facility] 93.1 [facility] LABORATORY MCH 28.4 27.5 - [facility] 32.1 pg [facility] MCHC 31.5 (L) 32.0 - [facility] 35.7 gm/dL [facility] Platelets 310 145 - 357 [facility] x10(3)/[facility] LABORATORY RDWSD 51.8 (H) 36.0 - [facility] 45.0 [facility] LABORATORY RDWCV 15.8 (H) 11.4 - [facility] 13.8 % [facility] LABOR[facility] MPV 8.9 7.6 - 12.9 [facility] LABORATORY nRBC % Auto 0.0 % [facility] LABORATORY nRBC Abs Auto 0.000 0.000 - [facility] 0.000 [facility] x10(3)/[facility] LABORATORY Specimen Anatomical Collection Method Collection Time Receive d Time (Source) Location / / Volume Laterality Blood specimen 08/04/2017 12:55 8 1:01 (specimen) PM EST PM EST Resulting Agency Comment Spec In Lab Lovely Vicente MD HEMATOLOGY ORDERABLES Performing Organization Address City/State/[place] [address] (ABNORMAL) Comprehensive metabolic panel (non-fasting) (08/04/2017 12:55 PM EST) athologist Signature Glucose Lvl 208 (H) 65 - 199 [facility] mg/dL [facility] Comment: Diabetes: >=200 mg/dL plus symp toms BUN 32 (H) 10 - 20 mg/dL [facility] LABORATORY Creatinine 1.58 (H) 0.80 - 1.50 mg/dL [facility] LABORATORY Sodium 136 135 - 145 mmol/L [facility] Potassium 5.5 (H) 3.5 - 5.0 mmol/L [facility] [...] - 10.5 mg/dL [facility] Total Protein 6.9 6.1 - [...] or in patients with acute kidney failure. [email or web address] Specimen Anatomical Collection Method Collection Time Receive d Time (Source) Location / / Volume Laterality Blood specimen 08/04/2017 12:55 8 1:01 (specimen) PM EST PM EST Resulting Agency Comment Spec In Lab Lovely Vicente MD CHEMISTRY ORDERABLES Performing Organization Address City/State/ZIP Code Phon e Number [place] [id number] (ABNORMAL) Hemoglobin A1c (08/04/2017 [...] into estimated average glucose values. ??Diabetes Care 2008:31(8):7996-3477. Specimen Anatomical Collection Method Collection Time Receive d Time (Source) Location / / Volume Laterality Blood specimen 08/04/2017 12:55 8 1:01 (specimen) PM EST PM EST Resulting Agency Comment Spec In Lab Lovely Vicente MD CHEMISTRY ORDERABLES Performing Organization Address [facility] [place] [address] (ABNORMAL) Prothrombin Time (08/04/2017 [...] MD HEMATOLOGY ORDERABLES Performing Organization Address [facility] [place] [address] (ABNORMAL) pro-Brain Natriuretic Peptide (08/04/2017 12:55 PM EST) P athologist Signature ProBNP 3,133 (H) <=125 [facility] pg/mL [facility] Specimen Anatomical Collection Method Collection Time Receive d Time (Source) Location / / Volume Laterality Blood specimen 08/04/2017 12:55 8 1:01 (specimen) PM EST PM EST Resulting Agency Comment Spec In Lab Danette Maxwell APRN CHEMISTRY ORDERABLES Performing Organization Address City/State/[place] [address] documented in this encounter Visit Diagnoses Diagnosis Cardiomyopathy, unspecified type Systolic congestive heart failure, unspe cified congestive heart failure chronicity Coronary artery rupture Acute myocardial infarction, unspecified site, episode of care unspecified Ischemic cardiomyopathy Other specified forms of chronic ischemi c heart disease Atherosclerosis of atka coronary arter y, angina presence unspecified, unspecified whether atka or transplanted heart Essential hypertension, malignant Diabetes mellitus due to underlying cond ition with diabetic nephropathy, unspecified 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
--- OUTSIDE RECORDS SUMMARY | 2022-05-11 08:47 | XMS_ITS | Encounter Summary ---
:1945 [place] [address] Care Team Providers Name Role Phone Lovely Vicente MD Primary Care Provider Reason for Visit Reason Comments Hospital Transfer cold foot post CABG Auth/Cert Specialty Diagnoses / Procedures Referred By Contact Refer red To Contact Diagnoses Critical lower limb ischemia Procedures NAYE IPI Referral ID Status Reason Start Date Expiration Date Visits Requ ested Visits Authorized [id number] 1 1 Encounter Details Date Type Department Care Team Description 07/20/2017 Hospital Encounter 4 Herminia Ibarra MD [facility] [place] [address] Critical lower limb [facility] Arik Clement MD [facility] [place] [address] [place] [address] Social History Tobacco Use Types Packs/Day Years [...] home. Important Studies and Lab Data: Labs: [email or web address] Lab Results Component Value Date INR 1.5 [...] For any problems or questions please call [phone] ZELDA Smith, grid molder Nurse Clinician For issues on weeknights after 5pm and weekends please call [phone] and ask for the Vascular Fellow information technology instructor. General Instructions None Future Appointments and Orders Future Appointments Provider Department Dept Phone 08/04/2017 1:00 PM Daniele Mooney [place] [facility] [place] [phone] 08/04/2017 2:15 PM Arik Clement MD V[facility] Surgery at [place] [phone] 09/07/2017 3:00 PM MAYRA CHACON Lab [facility] [phone] 09/07/2017 4:00 PM Luz Prescott MD Endocrinology at [place] [phone] Future Orders Complete By Expires Arterial Duplex Leg, Unil [VAS32 Custom] 07/27/2017 (Approximate) 01/26/2018 Process Instructions: There is no in-house vascular skilled labor available on weeknights (5pm-8am), weekends, or holidays. IF THIS IS A REQUEST FOR AN EMERGENT STUDY DURING THOSE HOURS, please have the senior provider responsible for the patient page the Vascular Surgery Fellow/Senior Resident information technology instructor to discuss options. Scheduling Instructions: Questions: Indication for study/signs & symptoms: Right femoral PSA s/p cardiac cath Question to be answered: bloodflow to PSA Laterality: Right Is there a RIGHT LOWER EXTREMITY graft?: No Lower limb right segments: Common Femoral Is there a stent?: No At which location will this be performed?: [place] Referral to Home Health - at DISCHARGE [[id number] CPT(R)] As directed Process Instructions: Scheduling Instructions: Comments: DOCUMENTATION FOR VNA SERVICES (INCLUDING THOSE PATIENTS WITH MEDICARE COVERAGE REQUIRING HOME VNA SERVICES AND/OR HOSPICE SERVICES) PATIENT'S LOCATION: Gregory Fatima [address] [place] [address] [place] [id number] (home) Cell: Telephone Information: Supply Chain Engineer's Name: self In discussion with the attending physician, it is certified that this patient is under their care and that they, or a Nurse Practitioner,Clinical Nurse specialist or Physician Purchasing And Claims Supervisor who is working directly with them, [...] CARE AGENCY: Yasmani Munguia ([facility] [place] [facility] PHONE: [phone] FAX: [phone] Start of care: 24- 48 hours FOR [...] patient'sPCP: Lovely Vicente MD [address] [facility] [place] / [place] [id number] All VNA agencies which cover the area [...] For any problems or questions please call [phone] ZELDA Smith, grid molder Nurse Clinician For issues on weeknights after 5pm and weekends please call [phone] and ask for the Vascular Fellow information technology instructor. 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 A letter describing our affiliations was reviewed with them and theywere educated about their right to choose where referrals are placed. Patient requests referral to [facility]. PHONE: [phone] FAX: [phone]. Expected date of discharge: 07/20/2017 . Referral routed to the Nursing Tech for matching with agency/vendor and to provide any required information. 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 A letter describing our affiliations was reviewed with them and theywere educated about their right to choose where referrals are placed. Patient requests referral to [facility] ([facility] [place] [facility]- is in [facility] PHONE: [phone] FAX: [phone]. Expected date of discharge: 07/20/2017 . Referral routed to the Nursing Tech for matching with agency/vendor and to provide any required information. Katina Pulliam RNexhibit designer Janneth Lee MD - 07/20/2017 7:29 [...] [facility] Functional Status/Social Hx: Social [...] -ISS -pain control Discussed with Vascular Fellow information technology instructor. Chris Valadez MD PGY2 Pager [phone] documented in this encounter ED Notes Annita Reaves MD - 07/20/2017 3:15 PM EST Emergency Department Gregory Fatima is a 72 y.o. 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 History of Present Illness [...] 30 Days: [facility] 07/05/17 Anticipated Length Of Stay (If known): [...] Insurance: MEDICARE Secondary Insurance: [employer] [facility] Prescription Coverage: See above Preferred Pharmacy: [facility] Other: N/A Primary Care Provider: Lovely Vicente MD [phone] Patient/Caregiver Goals of Treatment: Patient plans to return home when medically ready Potential Needs for Transition of Care: Rehab/SNF: N/A Home Health: [facility]mani Mungu[facility] ([facility] [place] [facility] PHONE: [phone] FAX: [phone] DME: N/A Dialysis: N/A Community Resources: N/A Transportation: Patient family will transport Other: N/A Anticipated Barriers to Discharge/Special Considerations: None Plan: Patient plans to return home with home health services when medically ready A member of the Care Management team will continue to monitor progress, follow for continuity of care and assist with transition of care planning. Naty Pulliam, RN Pager: [phone] ED Triage - Rayna Weir RN - 07/20/2017 12:28 AM EST Pt transferred from [place] for blue right foot and painful toes. [...] Zulma Dolan MD [facility] [address] [place], [place] [address] (Wo rk) 05/28/2022 Laboratory Appointment Lab 05/28/2022 Office Visit Cardiology Zulma Dolan [place] [facility] [place] [address] Liz Poole PA [facility] [place] [address] 06/10/2022 Office Visit Dermatology Laura Scherer MD [facility] [address] [place], [place] [address] (Wo rk) documented as of this encounter Procedures Procedure Name Priority Date/Time Associated Comments Diagnosis BLUEBERRY GROWER SCAN 09/02/2017 12:00 Res ults for this [...] TO LAB EST procedure are i n ([facility]) the results section. APTT STAT 07/20/2017 2:25 AM Results f or this EST procedure are i n the results section. PROTHROMBIN TIME STAT 07/20/2017 2:25 AM Resul ts for this EST procedure are i n the results section. BASIC METABOLIC PANEL STAT 07/20/2017 2:25 AM Results for this (NON-FASTING) EST procedure are in the results section. documented in this encounter Results SCAN DOC: BLUEBERRY GROWER (09/02/2017 12:00 AM EST) Narrative 09/02/2017 12:00 AM EST This result has an attachment that is no t available. Ordered by an unspecified provider. Scanning Provider MEDIA MGR SCAN EXT ORDR/RSLT POCT Glucose (07/20/2017 12:04 PM EST) P athologist Signature POC Glucose 189 65 - 199 [facility] mg/dL [facility] Comment: [...] City/State/[place] [address] (ABNORMAL) Differential, Automated (07/20/2017 10:34 AM EST) Patholo gist Method Time Signature Neutrophils % 84.3 % [facility] Neutr Abs (ANC) 14.27 (H) 1.70 - [facility] 6.[address] [facility] x10(3)/[facility] LABORATORY Lymphocytes % 5.6 % [facility] Lymphocytes Abs 1.0 0.9 - 3.2 [facility] x10(3)/[facility] LABORATORY Monocytes % 6.1 % [facility] Monocyte Abs 1.0 (H) 0.3 - 0.9 [facility] x10(3)/[facility] LABORATORY Eosinophils % 2.4 % [facility] Eosinophils Abs 0.4 0.0 - 0.4 [facility] x10(3)/[facility] LABORATORY Basophils % 0.5 % [facility] Basophils Abs 0.1 0.0 - 0.1 [facility] x10(3)/[facility] LABORATORY Immature Gran % 1.10 % [...] Gran Abs 0.19 (H) 0.00 - 0.04 x10(3)/[facility] LABORATORY Specimen Anatomical Collection Method Collection Time Receive d Time (Source) Location / / Volume Laterality Blood specimen 07/20/2017 10:34 7 (specimen) AM EST 10:39 AM EST Resulting Agency Comment Spec In Lab Arik Clement MD HEMATOLOGY ORDERABLES Performing Organization Address City/State/[place] [address] (ABNORMAL) Hemogram (07/20/2017 10:34 AM EST) Analysis Performed At Patho logist Time Signature WBC 17.0 (H) 4.0 - 9.5 [facility] x[facility](3)/[facility] LABORATORY RBC 3.70 (L) 4.58 - [facility] [facility] x10(6)/[facility] LABORATORY Hemoglobin 10.8 (L) 13.7 - [facility] 16.5 gm/dL [facility] Hematocrit 33.4 (L) 40.5 - [facility] 48.5 % [facility] MCV 90.3 82.9 - [facility] 93.1 [facility] LABORATORY MCH 29.2 27.5 - [facility] 32.1 pg [facility] MCHC 32.3 32.0 - [facility] 35.7 gm/dL [facility] Platelets 211 145 - 357 [facility] x10(3)/[facility] LABORATORY RDWSD 49.1 (H) 36.0 - [facility] 45.0 [facility] LABORATORY RDWCV 14.7 (H) 11.4 - [facility] 13.8 % [facility] MPV 9.2 7.6 - 12.9 [facility] nRBC % Auto 0.0 % [facility] nRBC Abs Auto 0.000 0.000 - [place] [facility] 0.[address] [facility] x10(3)/[facility] LABORATORY Specimen Anatomical Collection Method Collection Time Receive d Time (Source) Location / / Volume Laterality Blood specimen 07/20/2017 10:34 7 (specimen) AM EST 10:39 AM EST Resulting Agency Comment Spec In Lab Arik Clement MD HEMATOLOGY ORDERABLES Performing Organization Address City/State/[place] [address] (ABNORMAL) APTT (07/20/2017 10:34 [...] Clement MD HEMATOLOGY ORDERABLES Performing Organization Address City/[facility]/[place] [address] POCT Glucose (07/20/2017 7:41 AM EST) athologist Signature POC Glucose 174 65 - 199 [facility] mg/dL [facility] Comment: [...] City/[facility]/ZIP Code Phon e Number [address] JULIAN, legs, multiple levels (07/20/2017 7:33 AM EST) Component Value Ref Test Analysis Performed At Patholo gist Range Method Time Signature VB Text Department: Vascular Surgery Lab VASCUBASE Report Patient: [id number] (GREGORY FATIMA) CPT: 86037 ICD10: I75.021;I99.8 Referring Physician: ARIK CLEMENT ?? [...] [facility] Range Method Time Signature VB Text Department: Vascular Surgery Lab VASCUBASE Report Patient: [id number] (GREGORY FATIMA) CPT: 12038 ICD10: I97.610;I99.8 Referring Physician: ARIK CLEMENT ?? [...] POC Glucose 199 65 - 199 [facility] mg/dL [facility] Comment: Supplemental ranges: <140 mg/dL before meals <180 mg/dL all other times of the day Specimen Anatomical Collection Method Collection Time Receive d Time (Source) Location / / Volume Laterality Blood specimen 07/20/2017 3:41 AM 017 3:41 (specimen) EST AM EST Arik Clement MD POINT OF CARE TEST ORDERABLE S Performing Organization Address City/[facility]/ZIP [facility] [place] [address] Lactate, whole blood, send to lab (Leb/CGP) (07/20/2017 2:25 AM EST) athologist Signature Lactate WB 2.0 0.5 - 2.2 [facility] mmol/L [facility] Specimen Anatomical Collection Method Collection Time Receive d Time (Source) Location / / Volume Laterality Blood specimen Venous Draw / 07/20/2017 2:25 AM 2016 2:37 (specimen) Unknown EST AM EST Resulting Agency Comment Spec In Lab Zulma Samuel MD CHEMISTRY ORDERABLES Performing Organization Address City/[facility] Code Phon e Number [address] (ABNORMAL) APTT (07/20/2017 2:25 [...] Reaves MD HEMATOLOGY ORDERABLES Performing Organization Address City/[facility]/[place] [address] (ABNORMAL) Prothrombin Time (07/20/2017 [...] City/State/[place] [address] (ABNORMAL) Basic Metabolic Panel (non-fasting) (07/20/2017 2:25 AM EST) P athologist Signature Glucose Lvl 187 65 - 199 [facility] mg/dL [facility] Comment: Diabetes: >=200 mg/dL plus symp toms BUN 35 (H) 10 - 20 mg/dL [facility] Creatinine 1.51 (H) 0.80 - 1.50 mg/dL [facility] Sodium 134 (L) 135 - 145 mmol/L [facility] Potassium Not Perf 3.5 - 5.0 mmol/L [facility] Comment: Specimen hemolyzed. Called by: [facility], Read back by: Chitra Orantes, Date/Time:07/20/17 [...] or in patients with acute kidney failure. [email or web address] [email or web address] Specimen Anatomical Collection Method Collection Time Receive d Time (Source) Location / / Volume Laterality Blood specimen 07/20/2017 2:25 AM 017 2:33 (specimen) EST AM EST Resulting Agency Comment Spec In Lab Annita Reaves MD CHEMISTRY ORDERABLES Performing Organization Address City/State/ZIP Code Phon e Number [place] [id number] documented in this encounter [...] 2) 0-8,000 Units, Intravenous, BOLUS PER [facility] PROTOCOL, Starting Wed07/20/17 at 0424, Until [...] 0-200 mL (COMPLETED) 0637 (Given - Provider: Lissetet Cruz - Comment: TLC/WNL) 0-200 mL, Intravenous, [...] documented in this encounter Care Teams Die Maintenance Relationship Specialty Start Date End Date Lovely Vicente MD PCP - General 04/16/[address] [place] [address] documented as of this encounter
--- OUTSIDE RECORDS SUMMARY | 2022-05-11 08:47 | XMS_ITS | Encounter Summary ---
:1945 Author Organization [facility] [place] [address] Care Team Providers Name Role Phone Lovely Vicente MD Primary Care Provider Reason for Visit Reason Comments Pain Management Ankle Pain Toe Pain Encounter Details Date Type Department Care Team Description 07/30/2017 Office Visit Pain Management at [facility], Per ipheral neuropathy [place] LITERARY AGENT due to ischemia [facility] [address], [place], [place] [phone] Social History Tobacco Use Types Packs/Day Years [...] Soares APRN - 07/30/2017 1:45 PM EST [facility] [place] [address] Phone: PAIN MANAGEMENT NEW PATIENT / CONSULTATION NOTE DATE OF VISIT 07/30/2017 Patient Don Fatima 1945 REFERRING PROVIDER Loevly Vicente MD [address] [place] [address] PRIMARY CARE PROVIDER Lovely Vicente MD CHIEF [...] much relief PAST THERAPIES: Nothing MEDICATIONS The [place] Prescription Monitoring Program was checked and no [...] [facility] OR ??? PRO CABG, ARTERIAL, SINGLE N/A 07/07/2017 @CABG, USING ARTERIAL GRAFT;SINGLE ARTERIAL GRAFT (WRVU 33.75) performed by Yuan Retana MD at [facility] OR ??? PRO CABG, ARTERY-VEIN, TWO [...] 0.31) performed by Yuan Retana MD at [facility] OR ??? PRO THYROIDECTOMY 03/28/2013 THYROIDECTOMY, [...] referral, Lovely Vicente MD [address] [place] [address]. [facility] So[facility], MSN, GEOPHYSICAL PROSPECTING PERMIT AGENT-BC, LITERARY AGENT Nurse Practitioner [facility] documented in this encounter Plan of Treatment Upcoming Encounters Date Type Specialty Care Team Description 05/28/2022 Appointment Cardiology Zulma Dolan MD [facility] [place], [place] [address] (Wo rk) 05/28/2022 Laboratory Appointment Lab 05/28/2022 Office Visit Cardiology Zulma Dolan MD [facility] [place] [address] Liz Poole PA [facility] [place] [address] 06/10/2022 Office Visit Dermatology Laura Scherer MD [facility] DR [address] [place], [place] [address] (Wo rk) documented as of this encounter Visit Diagnoses Diagnosis 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
--- OUTSIDE RECORDS SUMMARY | 2022-05-11 08:47 | XMS_ITS | Encounter Summary ---
:1945 Author Organization [facility] [place] [address] Care Team Providers Name Role Phone Lovely Vicente MD Primary Care Provider Reason for Visit Reason Comments Foot Pain Auth/Cert Specialty Diagnoses / Procedures Referred By Contact Refer red To Contact Diagnoses Ischemic foot Procedures NAYE OBSVO Referral ID Status Reason Start Date Expiration Date Visits Requ ested Visits Authorized [id number] 1 1 Encounter Details Date Type Department Care Team Description 07/27/2017 Emergency 1 [facility] Lokesh Swenson MD [facility] [place] [address] Femoral artery pseudo-aneurysm, right; [facility] Tam Bauman MD [facility] [place] [address] [place] [address] Social History Tobacco Use Types Packs/Day [...] Gregory Fatima Patient Age: 72 y.o. Language: Faroese Race: White Ethnicity: Not nor Admit date: [...] please contact your inpatient physician through the [facility] [place] . Issues after hours and on weekends [...] RLE critical limb ischemia, who presented to [facility] with worsening RLE pain. Pt post-op course after CABG was significant for paroxysmal Afib, and he was started on Coumadin given elevated [id number] score. He presented 2 weeks following that, on 07/20, with RLE pain/pallor andwas found to have critical limb ischemia in setting of subtherapeutic INR, pseudoaneurysm Rt PYROGLAZER and occlusion b/l ant tibial arteries. He [...] in the last 7068 hours. Invalid input(s): [id number] Recent Labs 07/08/17 0400 07/07/17 0515 07/06/17 [...] (it was low at 1.6 here at [facility]) 7. Use the tramadol if dilaudid or tylenol is not working 8. Stop taking the potassium supplement - your blood potassium level was elevated. Ask your doctors at future visits if this should be restarted. 9. Antibiotic for 5 days recommended by cardiothoracic surgery for chest wound drainage Follow-Up Appointments Vascular surgery as previously schedule Your Inpatient Doctor(s) at [facility]: CARLOS ALBERTO ROSALES MD General Instructions None Future Appointments and Orders Future Appointments Provider Department Dept Phone 07/30/2017 8:30 AM OSWALDO, THREE L Lab 3L [facility] [phone] 07/30/2017 9:40 AM Danette Maxwell APRN Cardiology at [place] [phone] 08/04/2017 1:00 PM Daniele Mooney [place] Vascular Lab at [place] [phone] 08/04/2017 2:15 PM Arik Clement MD Vascular Surgery at [place] [phone] 08/11/2017 10:00 AM [facility] ROOM 2 XRay at [place] [phone] Please go to Round Cutter Operator Area 3T ([place] Location). 08/11/2017 11:00 AM Yuan Retana MD Cardiac Surgery at [place] [phone] 09/07/2017 3:00 PM LAB, THREE L Lab 3L [facility] [phone] 09/07/2017 4:00 PM Luz Prescott MD Endocrinology at [place] [phone] Discharge References/Attachments None documented in this encounter [...] (it was low at 1.6 here at [facility]) 3. Use the tramadol if dilaudid or tylenol is not working 4. Stop taking the potassium supplement - your blood potassium level was elevated. Ask your doctors at future visits if this should be restarted. 5. Antibiotic for 5 days recommended by cardiothoracic surgery for chest wound drainage Follow-Up Appointments Vascular surgery as previously schedule Your Inpatient Doctor(s) at [facility]: CARLOS ALBERTO ROSALES MD documented in this [...] Gas) No results found for: PHART, PO2ART, BUN3ZMI Assessment/Plan: 72 y.o. male s/p CABG in [...] intervention: Education Nutrition Recommendations: Recommend continuation of [facility], CHO2 diet order Patient and denied need [...] Orders Diet Daily Healthy Menu Choices/Cardiac diet ([facility]-Diet) 60/ CHO counting level 2 Frequency: Effective Now Number of Occurrences: Until Specified Admit Weight: 83.92 kg Estimated body mass index is 28.13 kg/(m^2) as calculated from the following: Height as of this encounter: 172.7 cm (5' 8). Weight as of this encounter: 83.9 kg (185 lb). Brady body weight: 68.4 kg (150 lb 12.7 [...] RLE critical limb ischemia, who presented to [facility] with worsening RLE pain. Visited with patient [...] spent >30 minutes (Day of Discharge Code 52288) involved in the final examination of the [...] Melanoma ID: 72 y.o. Male presents to [facility] with persistent pain b/l lower extremities History of Present Illness: HPI 72 y.o. male with PMH ASCVD s/p CABG (07/07/17), MARIA VICTORIA on CPAP QHS, HTN, HLD, DM2, with recent hospitalization for RLE critical limb ischemia, who presented to [facility] with worsening RLE pain. Pt post-op course after CABG was significant for paroxysmal Afib, and he was started on Coumadin given elevated [id number] score. He presented 2 weeks following that, on 07/20, with RLE pain/pallor andwas found to have critical limb ischemia in setting of subtherapeutic INR, pseudoaneurysm Rt PYROGLAZER and occlusion b/l ant tibial arteries. He [...] [facility] MA[facility] OR ??? PRO CABG, ARTERIAL, SINGLE N/A 07/07/2017 @CABG, USING ARTERIAL GRAFT;SINGLE ARTERIAL GRAFT (WRVU 33.75) performed by Yuan Retana MD at [facility] MAIN OR ??? PRO CABG, ARTERY-VEIN, TWO N/A 07/07/2017 @CABG, TWO VENOUS GRAFTS & ARTERIAL GRAFT (WRVU 7.93) performed by Yuan Retana MD at [facility] MAIN OR ??? PRO COLONOSCOPY, REMV LESN, SNARE 01/16/2014 COLONOSCOPY, POLYPECTOMY, REMOVAL LESION BY SNARE performed by Nohemi Jaimes MD at [facility] ENDOSCOPY ??? PRO ENDOSCOPY W/VIDEO-ASST VEIN HARVEST, CABG Right 07/07/2017 ENDOSCOPIC HARVEST VEIN(S) FOR CABG (WRVU 0.31) performed by Yuan Retana MD at [facility] MAIN OR ??? PRO THYROIDECTOMY 03/28/2013 THYROIDECTOMY, TOTAL OR COMPLETE performed by Manny Mcknight MD at [facility] MAIN OR Prior To Admission Medications: [...] Procedure Component Value Units Date/Time Blood culture [[id number]] Collected: 07/09/1739 Lab Status: Final result Specimen: Blood from Arm, Right Updated: 07/14/17701 Blood Culture No growth at 5 days. Blood culture [[id number]] Collected: 07/09/170 Lab Status: Final result Specimen: [...] limb ischemia following CABG, who presented to [facility] ED from home with persistent B/L LE [...] continued Diet Daily Healthy Menu Choices/Cardiac diet ([facility]-Diet) 60/60/75 CHO counting level 2Cardiac, low salt, CHO 2 Discharge planning Pending improvement in pain control PT/OT/Speech PT ordered Lines/Access PIV Ocasio catheter No DVT/GI Prophylaxis Lovenox bridge to Coumadin, SCD. Code status Full Code Family PCP Lovely Vicente MD [phone] Attestation Please see my note for details [...] MD Resident 07/28/17 1115 Associated attestation - Anegla Swenson MD - 07/31/2017 8:06 AM EST [...] encounter Miscellaneous Notes Plan of Care - Parrish-Joyce Damian, PT - 07/27/2017 3:26 PM EST [...] Anticipated Discharge Disposition: home with assist Pager: [phone] JOYCE KING, PT Inpatient Physical Therapy 2017 [...] a lovenox bridge. Mr. Fatima returns to [facility] ED tonight because of ongoing pain in [...] 03/28/2013 FACIAL NERVE MONITORING, SETUP performed by Manyn Mcknight MD at [facility] MAIN OR ??? PRO CABG, ARTERIAL, SINGLE N/A 07/07/2017 @CABG, USING ARTERIAL GRAFT;SINGLE ARTERIAL GRAFT (WRVU 33.75) performed by Yuan Retana MD at [facility] MAIN OR ??? PRO CABG, ARTERY-VEIN, TWO N/A 07/07/2017 @CABG, TWO VENOUS GRAFTS & ARTERIAL GRAFT (WRVU 7.93) performed by Yuan Retana MD at [facility] MAIN OR ??? PRO COLONOSCOPY, REMV LESN, SNARE 01/16/2014 COLONOSCOPY, POLYPECTOMY, REMOVAL LESION BY SNARE performed by Nohemi Jaimes MD at [facility] ENDOSCOPY ??? PRO ENDOSCOPY W/VIDEO-ASST VEIN HARVEST, CABG Right 07/07/2017 ENDOSCOPIC HARVEST VEIN(S) FOR CABG (WRVU 0.31) performed by Yuan Retana MD at [facility] MAIN OR ??? PRO THYROIDECTOMY 03/28/2013 THYROIDECTOMY, TOTAL OR COMPLETE performed by Manny Mcknight MD at [facility] MAIN OR MEDICATIONS: No current facility-administered [...] Zulma Dolan MD [facility] [place], [place] [address] (Wo rk) 05/28/2022 Laboratory Appointment Lab 05/28/2022 Office Visit Cardiology Zulma Dolan MD [facility] [place] [address] Liz Poole PA [facility] [place] [address] 06/10/2022 Office Visit Dermatology Laura Scherer MD [facility] DR [address]MAT [place], [place] [address] (Wo rk) documented as [...] section. TYPE AND SCREEN STAT 07/27/2017 12:53 ([facility]/CGP/SHANDA) AM EST BASIC METABOLIC PANEL STAT 07/27/2017 12:53 Re sults for this (NON-FASTING) AM EST procedure are in the results section. documented in this encounter Results POCT Glucose (07/27/2017 11:53 AM EST) P athologist Signature POC Glucose 175 65 - 199 [facility] mg/dL [facility] Comment: Supplemental ranges: <140 mg/dL before meals <180 mg/dL all other times of the day Specimen Anatomical Collection Method Collection Time Receive d Time (Source) Location / / Volume Laterality Blood specimen 07/27/2017 11:53 8 (specimen) AM EST 11:53 AM EST Tam Bauman MD POINT OF CARE TEST ORDERABLE S Performing Organization Address City/State/[place] [address] Arterial Duplex Leg, Unil (07/27/2017 7:40 AM EST) Component Value Ref Test Analysis Performed At Patholo gist Range Method Time Signature VB Text Department: Vascular Surgery Lab VASCUBASE Report Patient: [id number] (GREGORY FATIMA) CPT: 01274 ICD10: I97.610;I72.4;Z09 Referring Physician: TAM BAUMAN ?? [...] VASCULAR ORDERABLES Performing Organization Address City/[facility]/ZIP Code Phon e Number VASCUBASE POCT Glucose (07/27/2017 6:51 AM EST) P athologist Signature POC Glucose 96 65 - 199 [facility] mg/dL [facility] Comment: Supplemental ranges: <140 mg/dL before meals <180 mg/dL all other times of the day Specimen Anatomical Collection Method Collection Time Receive d Time (Source) Location / / Volume Laterality Blood specimen 07/27/2017 6:51 AM 018 6:51 (specimen) EST AM EST Tam Bauman MD POINT OF CARE TEST ORDERABLE S Performing Organization Address City/[facility]/ZIP [facility] Phon e Number [address] ABORH Recheck Status (07/27/2017 [...] City/[facility]/[place] [address] Gold Tube HOLD (07/27/2017 12:53 AM EST) P athologist Signature Gold Hold Sample in [facility]. [facility] Specimen Anatomical Collection Method Collection Time Receive d Time (Source) Location / / Volume Laterality Blood specimen Venous Draw / 07/27/2017 12:53 07/27/19 18 1:01 (specimen) Unknown AM EST AM EST Angela Swenson MD CHEMISTRY ORDERABLES Performing Organization Address City/State/[place] [address] (ABNORMAL) Differential, Automated (07/27/2017 12:53 AM EST) Patholo gist Method Time Signature Neutrophils % 75.0 % [facility] Neutr Abs (ANC) 11.30 (H) 1.70 - [facility] 6.10 [facility] x10(3)/[facility] LABORATORY Lymphocytes % 9.9 % [facility] Lymphocytes Abs 1.5 0.9 - 3.2 [facility] x10(3)/[facility] LABORATORY Monocytes % 8.6 % [facility] Monocyte Abs 1.3 (H) 0.3 - 0.9 [facility] x10(3)/[facility] LABORATORY Eosinophils % 4.8 % [facility] Eosinophils Abs 0.7 (H) 0.0 - 0.4 [facility] x10(3)/[facility] LABORATORY Basophils % 0.8 % [facility] Basophils Abs 0.1 0.0 - 0.1 [facility] x10(3)/[facility] LABORATORY Immature Gran % 0.90 % [...] Abs 0.13 (H) 0.00 - 0.04 x10(3)/[facility] LABORATORY Specimen Anatomical Collection Method Collection Time Receive d Time (Source) Location / / Volume Laterality Blood specimen 07/27/2017 12:53 8 1:00 (specimen) AM EST AM EST Resulting Agency Comment Spec In Lab Angela Swenson MD HEMATOLOGY ORDERABLES Performing Organization Address City/State/[place] [address] (ABNORMAL) Hemogram (07/27/2017 12:53 AM EST) Analysis Performed At Patho logist Time Signature WBC 15.0 (H) 4.0 - 9.5 [facility] x[facility](3[facility] LABORATORY RBC 3.59 (L) 4.58 - [facility] 5.54 [facility] x10(6)/[facility] LABORATORY Hemoglobin 10.3 (L) 13.7 - [facility] 16.5 gm/dL [facility] Hematocrit 32.6 (L) 40.5 - [facility] 48.5 % [facility] MCV 90.8 82.9 - [facility] 93.1 [facility] LABORATORY MCH 28.7 27.5 - [facility] RYAN 32.1 pg [facility] MCHC 31.6 (L) 32.0 - [facility] 35.7 gm/dL [facility] Platelets 322 145 - 357 [facility] x10(3)/[facility] RDWSD 48.7 (H) 36.0 - [facility] RYAN 45.0 [facility] LABORATORY RDWCV 14.7 (H) 11.4 - [facility] RYAN 13.8 % [facility] MPV 8.9 7.6 - 12.9 [facility] LABORATORY nRBC % Auto 0.0 % [facility] nRBC Abs Auto 0.000 0.000 - [facility] RYAN 0.000 [facility] x10(3)/[facility] LABORATORY Specimen Anatomical Collection Method Collection Time Receive d Time (Source) Location / / Volume Laterality Blood specimen 07/27/2017 12:53 8 1:00 (specimen) AM EST AM EST Resulting Agency Comment Spec In Lab Angela Swenson MD HEMATOLOGY ORDERABLES Performing Organization Address City/State/[place] [address] Antibody screen (07/27/2017 12:53 AM EST) Patholo gist Method Time Signature Ab Screen Negative [facility] LABORATORY Expires at 07/30/2017 KATALINA ZHAORYAN [id number] on: [facility] Specimen Anatomical Collection Method Collection Time Receive d Time (Source) Location / / Volume Laterality Blood specimen 07/27/2017 12:53 8 (specimen) AM EST 12:58 AM EST Resulting Agency Comment Spec In Lab Angela Swenson MD BLOOD BANK ORDERABLES Performing Organization Address City/[facility]/[place] [address] ABO/Rh Typing (07/27/2017 12:53 AM EST) P athologist Signature ABORh Type O Pos [facility] Specimen Anatomical Collection Method Collection Time Receive d Time (Source) Location / / Volume Laterality Blood specimen 07/27/2017 12:53 8 (specimen) AM EST 12:58 AM EST Resulting Agency Comment Spec In Lab Angela Swenson MD BLOOD BANK ORDERABLES Performing Organization Address City/[facility] [place] [address] (ABNORMAL) Prothrombin Time (07/27/2017 [...] Organization Address City/State/[place] [address] (ABNORMAL) Basic Metabolic Panel (non-fasting) (07/27/2017 12:53 AM EST) athologist Signature Glucose Lvl 95 65 - 199 [facility] mg/dL [facility] Comment: Diabetes: >=200 mg/dL plus symp toms BUN 37 (H) 10 - 20 mg/dL [facility] LABORATORY Creatinine 1.49 0.80 - 1.50 mg/dL [facility] LAB[facility]ORY Sodium 137 135 - 145 mmol/L [facility]ORATORY Potassium 5.1 (H) 3.5 - 5.0 mmol/L [facility] Estimated GFR 46 (L) >=60 [facility] Comment: The reported eGFR should be multiplied b y 1.2 for patients. The MDRD is not an appropriate measure o f renal function for patients with body mass extremes or in patients with acute kidney failure. 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
Routine documented in this encounter Care Teams Rougher Machine Operator Relationship Specialty Start Date End Date Lovely Vicente MD PCP - General 04/16/15 [facility] [address] [facility] [address] [place] [address] documented as of this encounter
--- OUTSIDE RECORDS SUMMARY | 2022-05-11 08:47 | XMS_ITS | Encounter Summary ---
:1945 [place] [address] Care Team Providers Name Role Phone Lovely Vicente MD Primary Care Provider Encounter Details Date Type Department Care Team Description 07/29/2017 Hospital Encounter Vascular Lab at Critic monica Huber lower limb [facility] [place] [id number] Social History Tobacco Use Types Packs/Day Years [...] Cardiology Zulma Dolan MD [facility] [place], [place] [address] (Wo rk) 05/28/2022 Laboratory Appointment Lab 05/28/2022 Office Visit Cardiology Zulma Dolan MD [facility] [place] [address] [facility] [place] [address] 06/10/2022 Office Visit Dermatology Laura Scherer MD [facility] [address] [place], [place] [address] (Wo rk) documented as of this encounter Visit Diagnoses Diagnosis Critical lower limb ischemia Unspecified circulatory system disorder documented in this encounter Care Teams Show Design Supervisor Relationship Specialty Start Date End Date Lovely Vicente MD PCP - General 04/16/[address] [place] [address] documented as of this encounter
--- OUTSIDE RECORDS SUMMARY | 2022-05-11 08:47 | XMS_ITS | Encounter Summary ---
:1945 Author Organization [facility] [place] [address] Care Team Providers Name Role Phone Lovely Vicente MD Primary Care Provider Reason for Visit Auth/Cert Specialty Diagnoses / Procedures Referred By Contact Refer red To Contact Diagnoses Critical lower limb ischemia CELLULITIS RT FOOT Procedures EMERGENCY Referral ID Status Reason Start Date Expiration Date Visits Requ ested Visits Authorized [id number] 1 1 Encounter Details Date Type Department Care Team Description 08/04/2017 [facility] [place] [phone] Social History Tobacco Use Types Packs/Day Years [...] Dolan MD [facility] [place], [place] [address] (Wo rk) 05/28/2022 Laboratory Appointment Lab 05/28/2022 Office Visit Cardiology Zulma Dolan MD [facility] [place] [address] Liz Poole PA [facility] [place] [address] 06/10/2022 Office Visit Dermatology Laura Scherer MD [facility] [address] [place]LOG[place], [place] [address] (Wo rk) documented as of [...] Ref Test Analysis Performed At [facility] Range Method Time Signature VB Text Department: Vascular Surgery Lab VASCUBASE Report Patient: [id number] (DON HOANG) CPT: 95159 ICD10: I82.541 Referring Physician: MEÑO HUTSON ?? [...] extremity documented in this encounter Care Teams Theater Projectionist Relationship Specialty Start Date End Date Lovely Vicente MD PCP - General 04/16/[address] [place] [address] documented as of this encounter
--- OUTSIDE RECORDS SUMMARY | 2022-05-11 08:47 | XMS_ITS | Encounter Summary ---
:1945 [place] [address] Care Team Providers Name Role Phone Lovely Vicente MD Primary Care Provider Encounter Details Date Type Department Care Team Description 07/16/2017 Telephone Endocrinology at [facility] Manuela Holliday, [facility] [place] [address] ENDOCRINOLOGY DEPT [phone] [place], [place] [address] (Wo rk) Social History Tobacco [...] Dolan MD [facility] [address] [place], [place] [address] (Wo rk) 05/28/2022 Laboratory Appointment Lab 05/28/2022 Office Visit Cardiology Zulma Dolan MD [facility] [place] [address] Liz Poole PA [facility] [place] [address] 06/10/2022 Office Visit Dermatology Laura Scherer MD [facility] [address]MAT [place], [place] [address] (Wo rk) documented as of this encounter Visit Diagnoses Not on filedocumented in this encounter Care Teams Horticultural Manager Relationship Specialty Start Date End Date Lovely Vicente MD PCP - General 04/16/[address] [place] [address] documented as of this encounter
--- OUTSIDE RECORDS SUMMARY | 2022-05-11 08:47 | XMS_ITS | Encounter Summary ---
:1945 Author Organization [facility] [place] [address] Care Team Providers Name Role Phone Lovely Vicente MD Primary Care Provider Reason for Visit Reason Comments Follow-up Encounter Details Date Type Department Care Team Description 07/29/2017 Office Visit Cardiac Surgery at [facility] Yuan Retana MD S/P CABG x 3 [facility] [place] [place] [address] CARDIOTHORACIC SURGERY [phone] [place], [place] [address] (Wo rk) Social History Tobacco [...] evaluation by vascular surgery. Yuan Retana MD [phone] documented in this encounter Plan of Treatment Upcoming Encounters Date Type Specialty Care Team Description 05/28/2022 Appointment Cardiology Zulma Dolan MD [facility] [place] [address] [place] [address] (Wo rk) 05/28/2022 Laboratory Appointment Lab 05/28/2022 Office Visit Cardiology Zulma Dolan MD [facility] [place] [address] Liz Poole PA [facility] [place] [address] 06/10/2022 Office Visit Dermatology Laura Scherer MD [facility] ER [address] [place], [place] [address] (Wo rk) documented as of this encounter Visit Diagnoses Diagnosis S/P CABG x 3 Postsurgical aortocoronary bypass status documented in this encounter Care Teams Welding Machine Setter Relationship Specialty Start Date End Date Lovely Vicente MD PCP - General 04/16/[address] [place] [address] documented as of this encounter
--- OUTSIDE RECORDS SUMMARY | 2022-05-11 08:47 | XMS_ITS | Encounter Summary ---
:1945 Author Organization [facility] Address [facility] [place] [address] Care Team Providers Name Role Phone Lovely Vicente MD Primary Care Provider Encounter Details Date Type Department Care Team Description 07/29/2017 Transcribe Orders Laboratory Lovely Vicente, Coronary artery rupture; 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, unspecified [facility] insulin use status [phone] [id number] Social History Tobacco Use Types Packs/Day Years [...] MD [facility] er [address] [place], [place] [address] (Wo rk) 05/28/2022 Laboratory Appointment Lab 05/28/2022 Office Visit Cardiology Zulma Dolan MD [facility] [place] [address] Liz Poole PA [facility] [place] [address] 06/10/2022 Office Visit Dermatology Laura Scherer MD [facility] ER [address] [place], [place] [address] (Wo rk) Scheduled Orders Name Type Priority Associated Diagnoses Order S chedule Lab Use Only, Fax Lab Routine Coronary arter y rupture Expected: 07/29/2017 Request Ischemic cardiom yopathy (Approximate), Atherosclerosis of [place] Ex jose: 07/29/2018 coronary artery, angina presence unspecified, unspecified whether [place] or transplanted heart Essential hypertension, malignant documented as of this encounter Results Uric acid (08/04/2017 12:55 PM EST) P athologist Signature Uric Acid 7.1 3.5 - 8.5 [facility] mg/dL [facility] Specimen Anatomical Collection Method Collection Time Receive d Time (Source) Location / / Volume Laterality Blood specimen 08/04/2017 12:55 8 1:01 (specimen) PM EST PM EST Resulting Agency Comment Spec In Lab Lovely Vicente MD CHEMISTRY ORDERABLES Performing Organization Address City/State/[place] [address] (ABNORMAL) Hemogram (08/04/2017 12:55 PM EST) Analysis Performed At Patho logist Time Signature WBC 15.8 (H) 4.0 - 9.5 [facility] x10(3)/[facility] LABORATORY RBC 3.48 (L) 4.58 - [facility] 5.54 [facility] x10(6)/[facility] LABORATORY Hemoglobin 9.9 (L) 13.7 - [facility] 16.5 gm/dL [facility] Hematocrit 31.4 (L) 40.5 - KATALINA DAVIS 48.5 % [facility] MCV 90.2 82.9 - [facility] 93.1 [facility] LABORATORY MCH 28.4 27.5 - [place]ALINA RYAN 32.1 pg [facility] MCHC 31.5 (L) 32.0 - [facility] ZHAORYAN 35.7 gm/dL [facility] Platelets 310 145 - 357 [facility] x10(3)/[facility] LABORATORY RDWSD 51.8 (H) 36.0 - [place] RYAN 45.0 [facility] LABORATORY RDWCV 15.8 (H) 11.4 - [facility] 13.8 % [facility] MPV 8.9 7.6 - 12.9 [facility] LABORATORY nRBC % Auto 0.0 % [facility] nRBC Abs Auto 0.000 0.000 - [facility] 0.000 [facility] x10(3)/[facility] LABORATORY Specimen Anatomical Collection Method Collection Time Receive d Time (Source) Location / / Volume Laterality Blood specimen 08/04/2017 12:55 8 1:01 (specimen) PM EST PM EST Resulting Agency Comment Spec In Lab Lovely Vicente MD HEMATOLOGY ORDERABLES Performing Organization Address City/State/ZIP Code Phon e Number [place] [phone] (ABNORMAL) Comprehensive metabolic panel (non-fasting) (08/04/2017 12:55 PM EST) P athologist Signature Glucose Lvl 208 (H) 65 - 199 [facility] mg/dL [facility] Comment: [...] Address City/State/[place] [address] (ABNORMAL) Hemoglobin A1c (08/04/2017 [...] Avg Gluc See note mg/dL KATALINA DAVIS [facility] Comment: Estimated Average Glucose not [...] with hemoglobinopathies. Additional resources are available on [facility] ADA website. Macario HAMMOND, Ruthann J, Deysi R, et al. ??Tr anslating the A1C assay into estimated average glucose values. ??Diabetes Care 2008:31(8):4125-9726. Specimen Anatomical Collection Method Collection Time Receive d Time (Source) Location / / Volume Laterality Blood specimen 08/04/2017 12:55 8 1:01 (specimen) PM EST PM EST Resulting Agency Comment Spec In Lab Lovely Vicente MD CHEMISTRY ORDERABLES Performing Organization Address City/State/[place] [address] (ABNORMAL) Prothrombin Time (08/04/2017 [...] Address City/State/[place] [address] documented in this encounter Visit Diagnoses Diagnosis Coronary artery rupture Acute myocardial infarction, unspecified site, episode of care unspecified Ischemic cardiomyopathy Other specified forms of chronic ischemi c heart disease Atherosclerosis of [place] coronary arter y, angina presence unspecified, unspecified whether [place] or transplanted heart Essential hypertension, malignant Diabetes mellitus due to underlying cond ition with diabetic nephropathy, unspecified [place] [facility] insulin use status documented in this encounter Care Teams Web Portal Developer Relationship Specialty Start Date End Date Lovely Vicente MD PCP - General 04/16/[address] [place] [address] documented as of this encounter
--- OUTSIDE RECORDS SUMMARY | 2022-05-11 08:47 | XMS_ITS | Encounter Summary ---
:1945 Author Organization [facility] [place] [address] Care Team Providers Name Role Phone Lovely Vicente MD Primary Care Provider Encounter Details Date Type Department Care Team Description 08/02/2017 Telephone Pain Management at [facility] [place], [place] [address] Social History Tobacco Use Types Packs/Day [...] Management Center Preauthorization Request Patient: Don Fatima [id number] Fax received from [facility] requesting we obtain prior authorization for Lidocaine patches prescribed by Barbra Soares APRN. RX insurance plan: [employer] RX insurance telephone: [phone] Patient Diagnosis: right foot pain secondary to PVD and ischemia Previous medications attempted: Tylenol, Tramadol, Dilaudid The following action was taken after discussion with the transaction advisory services manager: _x_ pharmacy informed Authorized dosage or amount: 5% on patch on for 12 hours, then remove for 12 hours. Angeles Rodrigez, RN documented in this encounter Plan of Treatment Upcoming Encounters Date Type Specialty Care Team Description 05/28/2022 Appointment Cardiology Zulma Dolan MD [facility] [place], [place] [address] (Wo rk) 05/28/2022 Laboratory Appointment Lab 05/28/2022 Office Visit Cardiology Zulma Dolan MD [facility] [place] [address] Liz Poole PA [facility] [place] [address] 06/10/2022 Office Visit Dermatology Laura Scherer MD [facility] [address] [place], [place] [address] (Wo rk) documented as of this encounter Visit Diagnoses Not on filedocumented in this encounter Care Teams Television Engineer Relationship Specialty Start Date End Date Lovely Vicente MD PCP - General 04/16/[address] [place] [address] documented as of this encounter
--- OUTSIDE RECORDS SUMMARY | 2022-05-11 08:47 | XMS_ITS | Encounter Summary ---
:1945 [place] [address] Care Team Providers Name Role Phone Lovely Vicente MD Primary Care Provider Encounter Details Date Type Department Care Team Description 07/29/2017 Telephone Pain Aurelia Crawford MD [facility] [place] [address] PAIN CLINIC [phone] [place], [place] [address] (Wo rk) Social History Tobacco [...] MD [facility] Dr [place], [place] [address] (Wo rk) 05/28/2022 Laboratory Appointment Lab 05/28/2022 Office Visit Cardiology Zulma Dolan MD [facility] [place] [address] Liz Poole PA [facility] [place] [address] 06/10/2022 Office Visit Dermatology Laura Scherer MD [facility] DR [address] [place], [place] [address] (Wo rk) documented as of this encounter Visit Diagnoses Not on filedocumented in this encounter Care Teams Incinerator Attendant Relationship Specialty Start Date End Date Lovely Vicente MD PCP - General 04/16/[address] [place] [address] [address] [place] [address] documented as of this encounter
--- OUTSIDE RECORDS SUMMARY | 2022-05-11 08:47 | XMS_ITS | Encounter Summary ---
:1945 [place] [address] Care Team Providers Name Role Phone Lovely Vicente MD Primary Care Provider Encounter Details Date Type Department Care Team Description 08/03/2017 Hospital Encounter Radiology Library at [place], Tommy Mijares [facility] [place] [address] VASCULAR SURGERY [phone] [place], [place] [address] (Wo rk) Social History [...] MD [facility] Dr [place], [place] [address] (Wo rk) 05/28/2022 Laboratory Appointment Lab 05/28/2022 Office Visit Cardiology Zulma Dolan MD [facility] [place] [address] Liz Poole PA [facility] [place] [address] 06/10/2022 Office Visit Dermatology Laura Scherer MD [facility] [address] [place], [place] [address] (Wo rk) documented as [...] Time Received Time / Laterality Volume Narrative [facility] - 08/03/2017 6:01 PM EST This exam is for storage only and is aut o-finalizing. Arik Clement MD G FILM LIBRARY ORDERABLES Performing Organization Address City/State/ZIP Code Phon e Number [place], [place] documented in this encounter Visit Diagnoses Diagnosis Pain Generalized pain documented in this encounter Care Teams Social Science Research Assistant Relationship Specialty Start Date End Date Lovely Vicente MD PCP - General 04/16/[address] [place] [address] documented as of this encounter
--- OUTSIDE RECORDS SUMMARY | 2022-05-11 08:47 | XMS_ITS | Encounter Summary ---
:1945 [place] [address] Care Team Providers Name Role Phone Lovely Vicente MD Primary Care Provider Encounter Details Date Type Department Care Team Description 08/03/2017 Hospital Encounter Radiology Library at [place], Tommy Mijares [facility] [place] [address] VASCULAR SURGERY [phone] [place], [place] [address] (Wo rk) Social History Tobacco [...] Dolan MD [facility] Dr [place], [place] [address] (Wo rk) 05/28/2022 Laboratory Appointment Lab 05/28/2022 Office Visit Cardiology Zulma Dolan MD [facility] [place] [address] Liz Poole PA [facility] [place] [address] 06/10/2022 Office Visit Dermatology Laura Scherer MD [facility] [address] [place], [place] [address] (Wo rk) documented as of [...] Laterality Volume Narrative [facility] - 08/03/2017 6:03 PM EST This exam is for storage only and is aut o-finalizing. Arik Clement MD G FILM LIBRARY ORDERABLES Performing Organization Address City/State/ZIP Code Phon e Number [place], [place] documented in this encounter Visit Diagnoses Diagnosis Pain Generalized pain documented in this encounter Care Teams Coat Tailor Relationship Specialty Start Date End Date Lovely Vicente MD PCP - General 04/16/[address] [place] [address] documented as of this encounter
--- OUTSIDE RECORDS SUMMARY | 2022-05-11 08:47 | XMS_ITS | Encounter Summary ---
:1945 Author Organization [employer] [place] [address] Care Team Providers Name Role Phone Lovely Vicente MD Primary Care Provider Reason for Visit Reason Onset Date Comments Other 07/22/2017 lovenox bridge Encounter Details Date Type Department Care Team Description 07/22/2017 Telephone Cardiology at [facility] Court Cadena RN Other (lovenox bridge) [place] [address] Social History Tobacco Use Types Packs/Day [...] 4:49 PM EST VAMSI Del Castillo, at [facility], called earlier today with a question re: lovenox bridge for this patient who was recently discharged from [facility] r/t a blood clot. Discharge note faxed to [facility] (fax# [phone], Ph#: [phone]) which contains instructions r/t lovenox bridge as follows: Anticoagulation: on lovenox bridge to therapeutic coumadin for AFib. Goal INR 2-3. At discharge INR=1.5. The lovenox injections can stop when INR >2, coumadin will continue indefinitely. documented in this encounter Plan of Treatment Upcoming Encounters Date Type Specialty Care Team Description 05/28/2022 Appointment Cardiology Zulma Dolan MD [facility] [place], [place] [address] (Wo rk) 05/28/2022 Laboratory Appointment Lab 05/28/2022 Office Visit Cardiology Zulma Dolan MD [facility] [place] [address] Liz Poole PA [facility] [place] [address] 06/10/2022 Office Visit Dermatology Laura Scherer MD [facility] DR [address] [place], [place] [address] (Wo rk) documented as of this encounter Visit Diagnoses Not on filedocumented in this encounter Care Teams Steam Drier Tender Relationship Specialty Start Date End Date Lovely Vicente MD PCP - General 04/16/15 [facility] [address] [place] [address] documented as of this encounter
--- OUTSIDE RECORDS SUMMARY | 2022-05-11 08:47 | XMS_ITS | Encounter Summary ---
:1945 Author Organization [facility] [place] [address] Care Team Providers Name Role Phone Lovely Vicente MD Primary Care Provider Reason for Visit Reason Comments Deep Vein Thrombosis Auth/Cert Specialty Diagnoses / Procedures Referred By Contact Refer red To Contact Diagnoses Critical lower limb ischemia CELLULITIS RT FOOT Procedures EMERGENCY Referral ID Status Reason Start Date Expiration Date Visits Requ ested Visits Authorized [id number] 1 1 Encounter Details Date Type Department Care Team Description 08/04/2017 Office Visit Vascular Surgery at [facility] itical lower limb [facility] ischemia [facility] [address] [place], [place] VASCULAR SURGERY [id number] [place] [address] [phone] Social History Tobacco Use Types Packs/Day Years [...] PMH of hypertension, hyperlipidemia, DM 2, MARIA VICTOIRA on CPAP who was admitted 06/25/17with anterior [...] MD [facility] [place] [address] Liz Poole PA [facility] [place] [address] 06/10/2022 Office Visit Dermatology Laura Scherer MD [facility] ER DR [address] [place], [place] [address] (Wo rk) documented as of this encounter Visit Diagnoses Diagnosis Critical lower limb ischemia Unspecified circulatory system disorder documented in this encounter Care Teams Assistant Womens Volleyball Coach Relationship Specialty Start Date End Date Lovely Vicente MD PCP - General 04/16/15 [facility] [address] [place], [place] [address] documented as of this encounter
--- OUTSIDE RECORDS SUMMARY | 2022-05-11 08:47 | XMS_ITS | Encounter Summary ---
:1945 Author Organization [facility] [address] Care Team Providers Name Role Phone Lovely Vicente MD Primary Care Provider Encounter Details Date Type Department Care Team Description 07/24/2017 Telephone Vascular Surgery Melba Bob [facility] [place] [address] [facility] [phone] VASCULAR SURGERY [place], [place] [address] (Wo rk) Social History Tobacco [...] Dolan MD [facility] [address] [place] [address] (Wo rk) 05/28/2022 Laboratory Appointment Lab 05/28/2022 Office Visit Cardiology Zulma Dolan MD [facility] [place] [address] Liz Poole PA [facility] [place] [address] 06/10/2022 Office Visit Dermatology Laura Scherer MD [facility] [address] [place], [place] [address] (Wo rk) documented as of this encounter Visit Diagnoses Not on filedocumented in this encounter Care Teams Police Investigator Relationship Specialty Start Date End Date Lovely Vicente MD PCP - General 04/16/[address] [place] [address] documented as of this encounter
--- OUTSIDE RECORDS SUMMARY | 2022-05-11 08:47 | XMS_ITS | Encounter Summary ---
:1945 Author Organization [facility] [place] [address] Care Team Providers Name Role Phone Lovely Vicente MD Primary Care Provider Reason for Visit Auth/Cert Specialty Diagnoses / Procedures Referred By Contact Refer red To Contact Diagnoses Critical lower limb ischemia CELLULITIS RT FOOT Procedures EMERGENCY Referral ID Status Reason Start Date Expiration Date Visits Requ ested Visits Authorized [id number] 1 1 Encounter Details Date Type Department Care Team Description 08/04/2017 Office Visit Cardiology at [facility] Danette Maxwell Incisional pain; [facility] A, VICE PRESIDENT PHARMACY Ischemic cardiomyopathy; [facility] ASCVD (arteriosclerotic card iovascular disease); [place], [place] Systolic heart failure, unspecified hear t failure chronicity [phone] CARDIOLOGY [phone] [place], [place] [address] Social History Tobacco Use Types [...] in this encounter Progress Notes Danette Maxwell, [employer] PRES[employer] - 08/04/2017 3:00 PM EST ID and [...] painful and 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 [...] Dolan MD [facility] [place], [place] [address] (Wo rk) 05/28/2022 Laboratory Appointment Lab 05/28/2022 Office Visit Cardiology Zulma Dolan [place] [address] Liz Poole PA [facility] [place] [address] 06/10/2022 Office Visit Dermatology Laura Scherer MD [facility] [address] [place], [place] [address] (Wo rk) documented as of [...] sensation documented in this encounter Care Teams Spring Bender Relationship Specialty Start Date End Date Lovely Vicente MD PCP - General 04/16/[address] [place] [address] documented as of this encounter
--- OUTSIDE RECORDS SUMMARY | 2022-05-11 08:47 | XMS_ITS | Encounter Summary ---
:1945 [place] [address] Care Team Providers Name Role Phone Lovely Vicente MD Primary Care Provider Encounter Details Date Type Department Care Team Description 08/04/2017 Notes Only Cardiac Surgery Makayla Wilson COOK VEGETABLE [facility] [place] [address] CARDIAC SURGERY [phone] [place], [place] [address] (Wo rk) Social History Tobacco [...] Dolan MD [facility] [address] [place], [place] [address] (Wo rk) 05/28/2022 Laboratory Appointment Lab 05/28/2022 Office Visit Cardiology Zulma Dolan MD [facility] [place] [address] Liz Poole PA [facility] [place] [address] 06/10/2022 Office Visit Dermatology Laura Scherer MD [facility] DR [address] [facility] [place], [place] [address] (Wo rk) documented as of this encounter Visit Diagnoses Not on filedocumented in this encounter Care Teams Managed Care Nurse Relationship Specialty Start Date End Date Lovely Vicente MD PCP - General 04/16/[address] [place] [address] documented as of this encounter
--- OUTSIDE RECORDS SUMMARY | 2022-05-11 08:47 | XMS_ITS | Encounter Summary ---
:1945 Author Organization [facility] [place] [address] Care Team Providers Name Role Phone Lovely Vicente MD Primary Care Provider Encounter Details Date Type Department Care Team Description 07/29/2017 Transcribe Orders Laboratory Lovely Vicente MD [address] [address] [place] [address] [phone] (Wo rk) Social History Tobacco Use Types [...] MD [facility] [place] [address] Liz Poole PA [facility] [place] [address] 06/10/2022 Office Visit Dermatology Laura Scherer MD [facility] ER DR [address] [place], [place] [address] (Wo rk) documented as of this encounter Visit Diagnoses Not on filedocumented in this encounter Care Teams Hearing Aid Technician Relationship Specialty Start Date End Date Lovely Vicente MD PCP - General 04/16/[address] [place] [address] documented as of this encounter
--- OUTSIDE RECORDS SUMMARY | 2022-05-11 08:47 | XMS_ITS | Encounter Summary ---
:1945 [place] [address] Care Team Providers Name Role Phone Lovely Vicente MD Primary Care Provider Reason for Visit Reason Onset Date Comments Questions 07/16/2017 fluid retention Encounter Details Date Type Department Care Team Description 07/16/2017 Telephone Cardiology at [facility] Martha Comer, Questions ([facility] RN retention ) [place] [address] Social History Tobacco Use Types Packs/Day Years Used Date Former Smoker Cigarettes 3 5 Quit: 07/26/18 69 Smokeless Tobacco: Never Used Alcohol Use Standard Drinks/Week Comments No 0 (1 standard drink = 0.6 oz pure alcoho l) Sex Assigned at Date Recorded Not on file documented as of this encounter Miscellaneous Notes Telephone Encounter - Martah Comer RN - 07/16/2017 9:52 AM EST [...] the direct number to the HF team ([phone]). She is aware of his appt with MARRIAGE THERAPIST Hans on 07/21/17 and the need for labs prior to that visit. verbalized good understanding of the current POC. documented in this encounter Plan of Treatment Upcoming Encounters Date Type Specialty Care Team Description 05/28/2022 Appointment Cardiology Zulma Dolan MD [facility] [address] [place], [place] [address] (Wo rk) 05/28/2022 Laboratory Appointment Lab 05/28/2022 Office Visit Cardiology Zulma Dolan MD [facility] [place] [address] Liz Poole PA [facility] [place] [address] 06/10/2022 Office Visit Dermatology Laura Scherer MD [facility] [address] [place], [place] [address] (Wo rk) documented as of this encounter Visit Diagnoses Not on filedocumented in this encounter Care Teams Diamond Wheel Molder Relationship Specialty Start Date End Date Lovely Vicente MD PCP - General 04/16/[address] [place] [address] documented as of this encounter
--- OUTSIDE RECORDS SUMMARY | 2022-05-11 08:49 | XMS_ITS | Encounter Summary ---
:1945 Author Organization [place] [address] Care Team Providers Name Role Phone Lovely Vicente MD Primary Care Provider Reason for Referral Consultation (Routine) - Closed Specialty Diagnoses / Referred By Contact Referred To Contact Procedures Cardiac Rehabilitation Diagnoses S/P CABG x 3 Yuan Webber, Cardiac Rehab, [address] [place], [place] CARDIOTHORACIC [address] [place] [address] Referral ID Status Reason Start Date Expiration Date Visits V isits Requested Authorized [id number] Closed Consult, 07/14/2017 01/10/2018 36 36 Test & Treat Reason for Visit Auth/Cert Specialty Diagnoses / Procedures Referred By Contact Refer red To Contact Diagnoses STEMI (ST elevation myocardial infarction) NSTEMI STEMI Procedures CARDIAC CATHETERIZATION NAYE IPI Referral ID Status Reason Start Date Expiration Date Visits Requ ested Visits Authorized [id number] 1 1 Encounter Details Date Type Department Care Team Description 07/05/2017 - Hospital Encounter Cardiac Special Daphne Shahid MD [facility] [place] [address] Non-ST elevation myocardial infarction ( NSTEMI); 07/14/2017 Care Unit Yuan Preciado MD [facility] DR [place] [address] S/P CABG x 3 [place] [id number] Social History Tobacco Use Types Packs/Day Years [...] Patient Age: 72 y.o. Birthdate: 1945 Language: Angolan Race: White Ethnicity: Not nor Admit Date: [...] , @ 1:20p Patient to follow-up with Interventional Radiologist/heart failure team in one week. An appointment will be made for you. You may call [phone] Patient to follow-up with Cardiac Surgery, Dr. Yuan Webber, in ~ 4 weeks with CXR, EKG. Inpatient Provider Contact Information: [facility] Section of Cardiac Surgery [facility] [address] FAX [phone] Discharge Diagnoses (Hospital Problems) Primary Diagnoses: CAD [...] SETUP performed by Manny Mcknight MD at [facility] MAIN OR ??? PRO CABG, ARTERIAL, SINGLE N/A 07/07/2017 @CABG, USING ARTERIAL GRAFT;SINGLE ARTERIAL GRAFT (WRVU 33.75) performed by Yuan Webber MD at [facility] MAIN OR ??? PRO CABG, ARTERY-VEIN, TWO N/A 07/07/2017 @CABG, TWO VENOUS GRAFTS & ARTERIAL GRAFT (WRVU 7.93) performed by Yuan Webber MD at [facility] MAIN OR ??? PRO COLONOSCOPY, REMV LESN, SNARE 01/16/2014 COLONOSCOPY, POLYPECTOMY, REMOVAL LESION BY SNARE performed by Nohemi Jaimes MD at [facility] ENDOSCOPY ??? PRO ENDOSCOPY W/VIDEO-ASST VEIN HARVEST, CABG Right 07/07/2017 ENDOSCOPIC HARVEST VEIN(S) FOR CABG (WRVU 0.31) performed by Yuan Webber MD at [facility] MAIN OR ??? PRO THYROIDECTOMY 03/28/2013 THYROIDECTOMY, TOTAL OR COMPLETE performed by Manny Mcknight MD at [facility] MAIN OR Prior To Admission Medications Prescriptions Prior to Admission Medication Sig Dispense Refill Last Dose ??? levothyroxine (SYNTHROID) 175 mcg Tablet Take 1 tablet by mouth daily. 90 tablet 3 07/05/2017 [id number] ??? ascorbic acid, vitamin C, (VITAMIN C) [...] he was taken emergently to the laborer pole crew for an ongoing STEMI. An IABP was [...] not take or discontinue any prescription or qgul-dqh-lmvfhit medications without asking your doctor or pharmacist [...] Yuan Webber and/or the Cardiac Surgery Physician House Principal Team may be reached at . Weight: [...] Dr. Yuan Webber. You may use a [place] Track or treadmill but avoid any pulling [...] with the surgeon. Do not ride motorcycles, [employer]'s tractors or horses. Avoid the use of [...] should resume a low fat, low cholesterol, [place] Heart [employer] Diet/Diabetic diet. Driving: No driving [...] , @ 1:20p Patient to follow-up with Interventional Radiologist/heart failure team in one week. Appointment will be made for you. You may call [phone] Patient to follow-up with Cardiac Surgery, Dr. [...] THREE L Lab 3L [facility] [phone] 09/07/2017 4:00 PM Luz Prescott MD Endocrinology at [place] [phone] Future Orders Complete By Expires EKG 12 Lead [EKG1 Custom] 08/14/2017 02/13/2018 Process Instructions: Scheduling Instructions: Questions: Which location will this be performed?: [facility] Is a rhythm strip needed?: No If EKG Reason is Pre-op Evaluation, indicate diagnosis for surgery.: XR Chest PA & Lateral (Generic) [[id number] Custom] 08/14/2017 02/13/2018 Process Instructions: Scheduling Instructions: Questions: Where will study be performed?: [facility] Portable exam?: Reason for exam and clinical history: CABG x 3 Other pertinent information: Stat read required?: Date of injury if applicable: Requested Time: Referral to Cardiac Rehab [JNZ095 Custom] As directed Process Instructions: If no progress note charted, please enter Clinical details in comments. Scheduling Instructions: Questions: My question or request is: s/p CABG. Cardiac rehab at [facility] Referral to Home Health - at DISCHARGE [INO5145 CPT(R)] As directed Process Instructions: Scheduling Instructions: Comments: DOCUMENTATION FOR VNA SERVICES (INCLUDING THOSE PATIENTS WITH MEDICARE COVERAGE REQUIRING HOME VNA SERVICES AND/OR HOSPICE SERVICES) PATIENT'S LOCATION: Gregory Hoang [address] [place] [address] [place] [id number] (home) Telephone Information: Clay Hoister's Name: self In discussion with the attending physician, it is certified that this patient is under their care and that they, or a Nurse Practitioner, or Physician House Principal who is working directly with them, had [...] M[facility] ([facility] [place] [employer]-is in [place]) PHONE: [phone] FAX: [phone] RN orders: Cardiopulmonary assessment, incisional assessment, assess vital signs, assessment of rehab progress, medication management and effectiveness, home safety evaluation. Please draw INR if indicated and send result to:Dr Vicente [phone] PT ORDERS: Continue rehab for endurance, gait stability and strength with mobility and transfers. Home safety evaluation. Home exercise program if appropriate. Start of Care Date:24-48 hours after discharge SPECIAL INSTRUCTIONS: For any follow up questions, needs, or issues please call the Cardiac Surgery Office at [phone] FOR MEDICARE ONLY: (please delete this section [...] [facility] [address] FAX [phone] Date: 07/14/2017 CC: MD Ivania Cr Betsy, [place] [address] [place] [phone] documented in this encounter Discharge Instructions Discharge [...] not take or discontinue any prescription or kypz-lqa-vioocsz medications without asking your doctor or pharmacist [...] juice or regular (not diet) soda 6 [employer] small box of raisins 4 glucose tablets [...] Yuan Webber and/or the Cardiac Surgery Physician House Principal Team may be reached at . ?? [...] Dr. Yuan Webber. You may use a Poneto Track or treadmill but avoid any pulling [...] with the surgeon. Do not ride motorcycles, [employer] tractors or horses. Avoid the use of [...] should resume a low fat, low cholesterol, [place] Heart Association Diet/Diabetic diet. ?? Driving: No [...] @ 1:20p ?? Patient to follow-up with Interventional Radiologist/heart failure team in one week. An appointment has been made for you, you can call [phone] ?? Patient to follow-up with Cardiac Surgery, [...] THREE L Lab 3L [facility] [phone] ?? 09/07/2017 4:00 PM Luz Prescott MD Endocrinology at [place] [phone] Future Orders Complete By Expires ?? EKG 12 Lead [EKG1 Custom] 08/14/2017 02/13/2018 ?? Process Instructions: ? Scheduling Instructions: ? Questions: ? Which location will this be performed?: [facility] ?? Is a rhythm strip needed?: No ?? If EKG Reason is Pre-op Evaluation, indicate diagnosis for surgery.: ?? XR Chest PA & Lateral (Generic) [[id number] Custom] 08/14/2017 02/13/2018 ?? Process Instructions: ? Scheduling Instructions: ? Questions: ? Where will study be performed?: [facility] ?? Portable exam?: ?? Reason for exam and clinical history: CABG x 3 ?? Other pertinent information: ?? Stat read required?: ?? Date of injury if applicable: ?? Requested Time: ?? Referral to Cardiac Rehab [[id number] Custom] As directed ? Process Instructions: ?? [...] RN - 07/14/2017 2:34 PM EST The patient/route service representative has been provided a list of Home Health Agencies/DME vendors which serve their preferred geographic area. A letter describing our affiliations was reviewed with them and theywere educated about their right to choose where referrals are placed. Patient requests referral to [facility] PHONE: [phone] FAX: [phone] Expected date of discharge: 07/14 Referral routed to the Drying Machine Tender for matching with agency/vendor and [...] [facility] Diabetes Management Pager [phone] minutes of this 35 minute visit was spent with the patient in counseling on diabetes and treatment plan, reviewing all glucose and insulin data as well as relevant laboratory results with the patient, and coordination of care on the inpatient unit including nursing and primary team. Zulma Andres, RN - 07/14/2017 10:30 AM EST The patient/route service representative has been provided a list of Home Health Agencies/DME vendors which serve their preferred geographic area. A letter describing our affiliations was reviewed with them and theywere educated about their right to choose where referrals are placed. Patient requests referral to : Yasmani Munguia ([facility] [place] [facility]-is in [place]) PHONE: [phone] FAX: [phone]. Expected date of discharge: 07/14/17 Referral routed to the Drying Machine Tender for matching with agency/vendor and [...] hours. If BG remains greater than 240, ppulsm32 units (no more than three times) &??call [...] #6 s/p CABG X3. FSBG 80 at [place], reports no symptoms but did drink some [...] [facility] Diabetes Management Pager [phone] minutes of this 25 minute visit [...] infiltration/extravasation Discussed plan of care with CERTIFIED PROCEDURAL CODER and RN. Elevate exrtemity and apply intermittent Warm compresses. Name of MD contacted Dr. Shaw Brown 07/13/2017 @ 0696 Name of RN contacted Ale Rangel RN Name of Pharmacist if consulted NA Name of Plastics MD ( if consulted) NA (Mandatory photo for infiltrations/ extravasations scoring a stage 2 or greater, but recommended forstage 1)( include measuring tape and identifier in the photo) MOTHER BABY RN CARING FOR THIS PATIENT WILL CONTINUE TO [...] measuring tape and identifier in the photo) MOTHER BABY RN CARING FOR THIS PATIENT WILL CONTINUE TO [...] AM EST Cardiac Surgery Progress Note: ID: [id number] 72 year old male POD#6 s/p CABGx3 [...] discharge. ?? I have met with the patient/route service representative to discuss discharge planning needs. I have provided the [facility], Office of Care Management letter from the Dock Pumper pertaining to rehab referrals. I have also provided a letter describing our affiliations within the [facility] and educated them about their right to choose where referrals are placed. ?? I reviewed the different levels of rehab including SNF, swing, acute and LTAC with the patient/route service representative. ?? The patient/route service representative has been provided a list of facilities within their preferred geographic area. ?? I have requested that the patient/route service representative provide at least three choices for referral. ?? The patient/route service representative have requested referrals to: ?? 1. . ?? 2. [facility] ?? 3. More to be entered ?? Expected date of discharge: 07/14 Note routed to Drying Machine Tender who will communicate referrals to [...] hours. If BG remains greater than 240, slyqjo72 units (no more than three times) & [...] hours. If BG remains greater than 240, lyxxvo93 units (no more than three times) & call for new basal insulin orders. ??If less than 240 after two hours, give no insulin and resume prior schedule. Will continue to follow Katerin Patel. STACIE Azul [facility] Endocrinology Diabetes Management Pager [phone] minutes of this 35 minute visit was spent with the patient in counseling on diabetes and treatment plan, reviewing all glucose and insulin data as well as relevant laboratory results with the patient, and coordination of care on the inpatient unit including nursing and primary team. Makayla Stevenson APRN - 07/12/2017 9:52 AM EST Cardiac Surgery Progress Note: ID: [id number] 72 year old male POD#5 s/p CABGx3 [...] 07/11/2017 7:18 PM EST Patient arrived from [facility]. VSS. MSI dressing pulled off [...] them as documented. MARCK DIAMOND MD Makayla Wilsno APRN - 07/11/2017 11:21 AM EST Cardiac Surgery Progress Note: ID: [id number] 72 year old male POD#4 s/p CABGx3 [...] hours. If BG remains greater than 240, icmamn15 units (no more than three times) & [...] AM EST Cardiac Surgery Progress Note: ID: [id number] 72 year old male POD#3 s/p CABGx3 [...] Gas) No results found for: PHART, PO2ART, AIT5LQR Assessment/Plan: 72 year old male POD#3 s/p [...] Encounter Note Patient Name: Gregory Hoang : [id number] MR#: [id number] Admit Date: 07/05/2017 4:20 PM Hospital Day 4 days Narrative: Patient was sitting in chair, hugging heart pillow, opened his eyes, nodding to come into room Assessment: Patient was sleepy. Intervention and Outcome: Introduced forklift driver services and patient reached his hand out in appreciation. Follow-up: Networking Technician remains available for support. Time in Direct [...] AM EST Cardiac Surgery Progress Note: ID: [id number] 72 year old male POD#2 s/p CABGx3 [...] of Cardiac Surgery Date: 07/09/2017 [facility] - 07/09/2017 1:33 AM EST [...] when IABP d/c'ed. Gretchen Carolina, PT Pager [phone] Maddison Cee PA - 07/08/2017 11:27 AM EST Cardiac Surgery Progress Note: ID: [id number] 72 year old male POD#1 s/p CABGx3 [...] unit. NICK SEGAL MD 07/08/2017 [facility] - 07/08/2017 4:33 AM EST [...] in place in R femoral. No hematoma. WASHING MACHINE ASSEMBLER- Intact Psych- Anxious Skin- Dry, no [...] intact. IABP in place in R femoral. WASHING MACHINE ASSEMBLER- Intact Psych- Anxious Skin- Dry, no [...] note for details. DAPHNE SHAHID MD Pager [phone] Jet Mckenna MD - 07/05/2017 6:48 PM EST Preliminary Cardiac Catheterization Procedure Note: Procedure(s) performed: Left heart cath, IABP insertion Access: Right MUSIC COORDINATOR-->8fr IABP A time-out was conducted prior [...] Heparin gtt maintained. Pt transferred to laborer pole crew. documented in this encounter H&P Notes Daphne Shahid MD - 07/05/2017 6:08 PM EST CARDIOLOGY HISTORY & PHYSICAL EXAM Date of Admission: 07/05/2017 ( Hospital Day 0 days ) Responsible Attending: Daphne Shahid MD PCP: Lovely Vicente MD PCP#: [phone] Patient Active Problem List Diagnosis Code ??? [...] significant valvular disease. Taken to the laborer pole crew urgently for ongoing STEMI. [facility] [...] I/O - s/p lasix in the laborer pole crew, redose to aim net neg 1L by [...] - hold metformin - f/u [facility] #Home Meds - continue levothyroxine 175mcg - CPAP at night # Routine - DVT PPx: heparin drip - Diet: NPO - Code Status: FULL - Dispo: [facility] Cedric Bey MD Internal Medicine, PGY-2 Cardiology S1, Team Pager # [phone] CARDIOLOGY ATTENDING NOTE Patient: Gregory Hoang Date [...] amenable for PCI. DAPHNE SHAHID MD Pager [phone] documented in this encounter Miscellaneous Notes Consult Note - Daphne Shahid MD - 07/14/2017 11:46 AM EST Heart Failure Service Inpatient Consult Note Gregory Hoang Date of : 1945 Age: 72 y.o. Today's date: 07/14/17 PCP: Lovely Vicente MD STONE SPLITTER: None Place of Service: [facility] Reason for Consult: Dr. Webber has [...] SETUP performed by Manny Mcknight MD at [facility] MAIN OR ??? PRO CABG, ARTERIAL, SINGLE N/A 07/07/2017 @CABG, USING ARTERIAL GRAFT;SINGLE ARTERIAL GRAFT (WRVU 33.75) performed by Yuan Webber MD at [facility] MAIN OR ??? PRO CABG, ARTERY-VEIN, TWO N/A 07/07/2017 @CABG, TWO VENOUS GRAFTS & ARTERIAL GRAFT (WRVU 7.93) performed by Yuan Webber MD at [facility] MAIN OR ??? PRO COLONOSCOPY, REMV LESN, SNARE 01/16/2014 COLONOSCOPY, POLYPECTOMY, REMOVAL LESION BY SNARE performed by Nohemi Jaimes MD at [facility] ENDOSCOPY ??? PRO ENDOSCOPY W/VIDEO-ASST VEIN HARVEST, CABG Right 07/07/2017 ENDOSCOPIC HARVEST VEIN(S) FOR CABG (WRVU 0.31) performed by Yuan Webber MD at [facility] MAIN OR ??? PRO THYROIDECTOMY 03/28/2013 THYROIDECTOMY, TOTAL OR COMPLETE performed by Manny Mcknight MD at [facility] MAIN OR Outpt Meds: Current Outpatient Prescriptions [...] (with meals). 10 mL 1 ??? ACCU-CHEK EILF PLUS TEST STRP Strip 2-3 times daily [...] following studies: EKG 07/14/17: NSR 75 bpm, AIRCRAFT CAPTAIN anterior infarct, LAD CXR 07/11/17: FINDINGS: Sternotomy wires. The patient has been extubated, left chest tube removed, and Flora-Suzi catheter removed since the 07/07/2017 study. Atelectasis [...] discussed with Zehra. Jaden Kelley MD Senior Vice President And Chief Information Officer Pager [phone] CARDIOLOGY ATTENDING NOTE Patient: Gregory Hoang Date [...] I did discuss the case with Dr. Kelely and the CT surgery service and we have made arrangements for follow-up in the heart failure clinic. DAPHNE SHAHID MD Pager [phone] Plan of Care - Alden Chavarria, CHARGEBACK SPECIALIST - 07/14/2017 11:35 AM EST Problem: [...] Discharge Disposition: home with assist Alden Chavarria, CHARGEBACK SPECIALIST Pager: [phone] Inpatient Physical Therapy Problem: Acute Rehab Services [...] sit/sit to supine -- Bed Mobility Goal, Pic[place] Level supervision required -- Bed Mobility Goal, [...] - 3 days -- Gait Training Goal, Pic[place] Level supervision required -- Gait Training Goal, [...] days -- Transfer Training Goal, Activity Type cxg-el-mgnev/qmizj-hf-fdy;vjw-zn-vraes/grcri-qy-uog;toilet -- Transfer Train Goal, [place] Level supervision required -- Transfer Training Goal, [...] keeping present for 2 days per family. Nail Welter noted of frustrations, house keeping sent to room. Patient offered showered twice, refused. at bedside, frustrated that shower not complete, informed that patient had refused several times. requesting to see JUNIOR QA ANALYST, paged sent to Martha, will come to bedside (middle of consult). not willing to wait, Martha notified that family had gone home. Encouraged to come for morning rounds a t 8am. Diabetes team at bedside - insulin adjustments made. Call cabello in reach. Continue to monitor. PLAN MOVING FORWARD: Ambulate, dressing changes BID, Please change drsg at 4am per Martha JUNIOR QA ANALYST request. INDIVIDUALIZED FALL PREVENTION INTERVENTIONS: Patient-specific [...] levels on the lower side, 60ml of [place] juice given after a FS of 80. [...] 07/13/17 0502 Interdisciplinary Rounds/Family Conf Participants case technician;dietitian/nutrition services;nursing;occupational therapy;patient;pharmacy;physical therapy;physician Plan of Care - [...] Anticipated Discharge Disposition: home with assist Pager: [phone] CLARISSA SEGAL, PT 07/12/2017 Physical Therapy Rehabilitation [...] to sit/sit to supine Bed Mobility Goal, Pic[place] Level supervision required Bed Mobility Goal, Additional Goal adheres to psternal precautions for transfer Goal: Gait Training Goal Stand Alone Therapy Goal Outcome: Ongoing (Interventions Implemented as Appropriate) 07/12/17 1225 Gait Training Goal Gait Training Goal, Date Established 07/12/17 Gait Training Goal, Time to Achieve 2 - 3 days Gait Training Goal, Pic[place] Level supervision required Gait Training Goal, Assist [...] 3 days Transfer Training Goal, Activity Type jtu-ve-foknc/ihgfl-dk-rnw;lik-nu-giuvp/bubli-gn-xrw;toilet Transfer Train Goal, [place] Level supervision required Transfer Training Goal, Additional [...] IV site, amio to other piv and TESTER WAFER SUBSTRATE at bedside to help assess, IV removed. [...] Ongoing (Interventions Implemented as Appropriate) 07/11/17199907/11/17200907/12/17 [facility] Daily Care Interventions Self-Care Promotion -- -- [...] staff, he stood and marched in place. Curtis weak, wanting to sit back down. Remained [...] Outcome: Ongoing (Interventions Implemented as Appropriate) 07/05/17 4631 Mutuality/Individual Preferences What Anxieties, Fears or Concerns [...] Health/Prescription Coverage: Primary Insurance: MEDICARE Secondary Insurance: [employer] [place] Prescription Coverage: yes Preferred Pharmacy: [facility] [place] Other: none Primary Care Provider: Lovely Vicente MD [phone] Patient/Caregiver Goals of Treatment:live and get my breath back Potential Needs for Transition of Care: Rehab[facility]SNF: [facility]; [facility] Home Health: NA DME: TBD Dialysis: na Community Resources: available Transportation: yes Other: none Anticipated Barriers to Discharge/Special Considerations: none Plan: Likely SNF Rehab before home A member of the Care Management team will continue to monitor progress, follow for continuity of care and assist with transition of care planning. ERLIN Weiss Pager: [phone] Consult Note - Katerin Azul RN - [...] potential to d/c gtt and start CF. can line operator diabetes care: Medications - Outpatient treatment regimen recommendations pending based on the hospital course. Monitoring - continue BG tid ac & hs Diet - low fat/low carb diet Exercise - weight-bearing exercise 30 min/day, as tolerated Thank you for allowing us to provide care for your patient W/E coverage, Dr. Jeane Tatum, pager [phone] Katerin Patel. STACIE Azul Endocrinology Diabetes Management Pager [phone] Plan of Care - Stephanie Godoy RN [...] Operative Note Patient Name: Gregory Hoang : [id number] MR#: [id number] Case Date: 07/07/2017 Surgeon: Surgeon(s) and Role: * Yuan Webber MD - Primary * Michael Drake PA - Physician House Principal * Linda Flores PA - Physician House Principal Preoperative diagnosis: 3VD Postoperative diagnosis: CAD, severe [...] Operative Note Patient Name: Gregory Hoang : [id number] MR#: [id number] Case Date: 07/07/2017 Surgeon: Surgeon(s) and Role: * Yuan Webber MD - Primary * Michael Drake PA - Physician House Principal * Linda Flores PA - Physician House Principal Preoperative diagnosis: 3VD Postoperative diagnosis: CAD, severe [...] code status: Full Code Katty Davidjose, MS3 [facility] Cardiology S1 (Pager [phone]) Plan of Care - Emelia Ibarra RN [...] SETUP performed by Manny Mcknight MD at [facility] MAIN OR ??? PRO COLONOSCOPY, REMV LESN, SNARE 01/16/2014 COLONOSCOPY, POLYPECTOMY, REMOVAL LESION BY SNARE performed by Nohemi Jaimes MD at [facility] ENDOSCOPY ??? PRO THYROIDECTOMY 03/28/2013 THYROIDECTOMY, TOTAL OR COMPLETE performed by Manny Mcknight MD at [facility] MAIN OR Social History: Social History Social [...] with other involved physicians Yuan Webber MD [phone] Med Student Progress Note - Katty Hahn [...] BiPAP - s/p lasix in the laborer pole crew, was net -1.5L - s/p plavix load, [...] Katty Hahn, M3 [facility] Cardiology S1 (Pager [phone]) Plan of Care - Stephanie Godoy RN [...] urinal without difficulty. Lasix given in laborer pole crew, 1.4 L out at this time. Pt [...] Dolan MD [facility] [address] [place] [address] (Wo lissa) 05/28/2022 Laboratory Appointment Lab 05/28/2022 Office Visit Cardiology Zulma Dolan MD [facility] [place] [address] Liz Poole PA [facility] [place] [address] 06/10/2022 Office Visit Dermatology Laura Scherer MD [facility] DR TEJA GR-DERMAT OLOGY [place], [place] [address] (Wo rk) Scheduled Orders Name [...] procedure are i n the results section. DOCUMENTATION LEAD SCAN 07/15/2017 12:00 Res ults for this [...] Routine 07/08/2017 4:00 Results f or this ([facility]/CG) AM EST procedure are i n the [...] Routine 07/05/2017 8:20 Results f or this ([facility] [...] 2017 EXAMINATION: XR CHEST PA AND LATERAL ([facility]) CLINICAL HISTORY: CABG x 3 TECHNIQUE: PA [...] Teague APRN IMG DX ORDERABLES SCAN DOC: DOCUMENTATION LEAD (07/15/2017 12:00 AM EST) Narrative 07/15/2017 12:00 [...] Signature POC Glucose 186 65 - 199 [facility]/dL [facility]ORY Comment: Supplemental ranges: <140 mg/dL before meals <180 mg/dL all other times of the day Specimen Anatomical Collection Method Collection Time Receive d Time (Source) Location / / Volume Laterality Blood specimen 07/14/2017 11:56 7 (specimen) AM EST 11:56 AM EST Yuan Webber MD POINT OF CARE TEST ORDERABLE S Performing Organization Address City/[facility]/[place] [address] POCT Glucose (07/14/2017 7:52 AM EST) athologist Signature POC Glucose 126 65 - 199 [facility] mg/dL [facility] LABORATORY [...] Address City/State/[place] [address] (ABNORMAL) Prothrombin Time (07/14/2017 [...] Wilson APRN HEMATOLOGY ORDERABLES Performing Organization Address City/[facility]/[place] [address] Potassium (07/14/2017 4:46 AM EST) athologist Signature Potassium 4.3 3.5 - 5.0 [facility] mmol/L [facility]ORY Comment: Please note: ??Patients [...] Wilson APRN CHEMISTRY ORDERABLES Performing Organization Address City/[facility]/[place] [address] POCT Glucose (07/14/2017 4:34 AM EST) athologist Signature POC Glucose 115 65 - 199 [facility] mg/dL [facility] LABORATORY [...] Organization Address City/State/ZIP Code Phon e Number [place] [id number] POCT Glucose (07/13/2017 11:33 PM EST) athologist Signature POC Glucose 132 65 - 199 [place] [facility] mg/dL [facility] LABORATORY [...] Address City/State/ZIP Code Phon e Number [address] POCT Glucose (07/13/2017 9:25 PM EST) athologist Signature POC Glucose 121 65 - 199 [place] mg/dL [facility] [...] Address City/State/ZIP Code Phon e Number [address] POCT Glucose (07/13/2017 4:55 PM EST) athologist Signature POC Glucose 79 65 - 199 [place] mg/dL [facility] [...] Address City/State/[place] [address] POCT Glucose (07/13/2017 11:16 AM EST) athologist Signature POC Glucose 163 65 - 199 [facility] mg/dL [facility] LABORATORY [...] Address City/State/ZIP Code Phon e Number [address] POCT Glucose (07/13/2017 8:07 AM EST) athologist Signature POC Glucose 96 65 - 199 [facility]/dL [facility] LABORATORY [...] Address City/State/ZIP Code Phon e Number [address] (ABNORMAL) Prothrombin Time (07/13/2017 [...] City/State/[place] [address] (ABNORMAL) Basic Metabolic Panel (non-fasting) (07/13/2017 4:26 AM EST) athologist Signature Glucose Lvl 95 65 - 199 [facility] mg/dL [facility] LABORATORY [...] [facility] Estimated GFR 60 >=60 [facility] Comment: The reported eGFR should be multiplied b y 1.2 for patients. The MDRD is not an appropriate measure o f renal function for patients with body mass extremes or in patients with acute kidney failure. http://Omnisens.Critique^It/DHnkdep http://Sococo/DHMCnkf Specimen Anatomical Collection Method Collection Time Receive d Time (Source) Location / / Volume Laterality Blood specimen 07/13/2017 4:26 AM 017 4:46 (specimen) EST AM EST Resulting Agency Comment Spec In Lab Makayla Wilson APRN CHEMISTRY ORDERABLES Performing Organization Address City/[facility]/ZIP Code Phon e Number [address] POCT Glucose (07/13/2017 3:52 AM EST) athologist Signature POC Glucose 93 65 - 199 [facility] mg/dL [facility] Comment: Supplemental ranges: <140 mg/dL before meals <180 mg/dL all other times of the day Specimen Anatomical Collection Method Collection Time Receive d Time (Source) Location / / Volume Laterality Blood specimen 07/13/2017 3:52 AM 017 3:52 (specimen) EST AM EST Yuan Webber MD POINT OF CARE TEST ORDERABLE S Performing Organization Address City/[facility]/ZIP Code Phon e Number [address] POCT Glucose (07/13/2017 12:21 AM EST) athologist Signature POC Glucose 80 65 - 199 [place] mg/dL [facility] Comment: Supplemental ranges: <140 mg/dL before meals <180 mg/dL all other times of the day Specimen Anatomical Collection Method Collection Time Receive d Time (Source) Location / / Volume Laterality Blood specimen 07/13/2017 12:21 7 (specimen) AM EST 12:21 AM EST Yuan Webber MD POINT OF CARE TEST ORDERABLE S Performing Organization Address City/[facility]/[place] [address] POCT Glucose (07/12/2017 8:22 PM EST) athologist Signature POC Glucose 119 65 - 199 [place] mg/dL [facility] [...] Address City/State/ZIP Code Phon e Number [address] POCT Glucose (07/12/2017 4:02 PM EST) athologist Signature POC Glucose 114 65 - 199 [place] mg/dL [facility] [...] Address City/State/ZIP Code Phon e Number [address] POCT Glucose (07/12/2017 11:28 AM EST) athologist Signature POC Glucose 164 65 - 199 [facility] mg/dL [facility] [...] Address City/State/ZIP Code Phon e Number [address] POCT Glucose (07/12/2017 7:34 AM EST) athologist Signature POC Glucose 109 65 - 199 [facility] mg/dL [facility] [...] City/State/[place] [address] (ABNORMAL) Basic Metabolic Panel (non-fasting) (07/12/2017 4:11 AM EST) P athologist Signature Glucose Lvl 92 65 - 199 [facility] mg/dL [facility] LABORATORY [...] or in patients with acute kidney failure. http://Omnisens.Critique^It/DHnkdep http://Omnisens.Critique^It/DHMCnkf Specimen Anatomical Collection Method Collection Time Receive d Time (Source) Location / / Volume Laterality Blood specimen 07/12/2017 4:11 AM 017 8:57 (specimen) EST AM EST Resulting Agency Comment Spec In Lab Makayla Wilson APRN CHEMISTRY ORDERABLES Performing Organization Address City/State/[place] [address] (ABNORMAL) Prothrombin Time (07/12/2017 [...] [place] STACIE HEMATOLOGY ORDERABLES Performing Organization Address City/[facility]/[place] [address] Potassium (07/12/2017 4:11 AM EST) athologist Signature Potassium 3.8 3.5 - 5.0 [facility] mmol/L [facility] Comment: Please note: ??Patients [...] Agency Comment Spec In Lab Makayla [place] POLYSOMNOGRAPHY TECHNOLOGIST CHEMISTRY ORDERABLES Performing Organization Address City/[facility]/[place] [address] POCT Glucose (07/12/2017 4:10 AM EST) athologist Signature POC Glucose 90 65 - 199 [facility] LABORATORY [...] Address City/State/ZIP Code Phon e Number [address] POCT Glucose (07/11/2017 11:57 PM EST) athologist Signature POC Glucose 98 65 - 199 [facility]/dL [facility] LABORATORY [...] Address City/State/ZIP Code Phon e Number [address] POCT Glucose (07/11/2017 8:32 PM EST) athologist Signature POC Glucose 146 65 - 199 [facility]/dL [facility] Comment: Supplemental ranges: <140 mg/dL before meals <180 mg/dL all other times of the day Specimen Anatomical Collection Method Collection Time Receive d Time (Source) Location / / Volume Laterality Blood specimen 07/11/2017 8:32 PM 017 8:32 (specimen) EST PM EST Yuan Wbeber MD POINT OF CARE TEST ORDERABLE S Performing Organization Address City/State/[place] [address] XR Chest PA & [...] e xtubated, left chest tube removed, and Flora-Suzi catheter removed since the study. Atelectasis at [...] e xtubated, left chest tube removed, and Flora-Suzi catheter removed since the study. Atelectasis at [...] - 199 [place] mg/dL [facility] [...] Address City/State/ZIP Code Phon e Number [address] POCT Glucose (07/11/2017 11:55 AM EST) athologist Signature POC Glucose 176 65 - 199 [place] mg/dL [facility] Comment: Supplemental ranges: <140 mg/dL before meals <180 mg/dL all other times of the day Specimen Anatomical Collection Method Collection Time Receive d Time (Source) Location / / Volume Laterality Blood specimen 07/11/2017 11:55 7 (specimen) AM EST 11:55 AM EST Yuan Webber MD POINT OF CARE TEST ORDERABLE S Performing Organization Address City/[facility]/ZIP Code Phon e Number [address] POCT Glucose (07/11/2017 7:53 AM EST) athologist Signature POC Glucose 189 65 - 199 [place] mg/dL [facility] [...] Address City/State/[place] [address] POCT Glucose (07/11/2017 4:22 AM EST) athologist Signature POC Glucose 151 65 - 199 [place] mg/dL [facility] Comment: Supplemental ranges: <140 mg/dL before meals <180 mg/dL all other times of the day Specimen Anatomical Collection Method Collection Time Receive d Time (Source) Location / / Volume Laterality Blood specimen 07/11/2017 4:22 AM 017 4:22 (specimen) EST AM EST Yuan Webber MD POINT OF CARE TEST ORDERABLE S Performing Organization Address City/[facility]/[place] [address] Potassium (07/11/2017 2:20 AM EST) athologist Signature Potassium 4.5 3.5 - 5.0 [facility] mmol/L [facility] Comment: Please note: ??Patients [...] Webber MD CHEMISTRY ORDERABLES Performing Organization Address City/[facility]/[place] [address] POCT Glucose (07/11/2017 12:17 AM EST) athologist Signature POC Glucose 162 65 - 199 [place] mg/dL [facility] Comment: Supplemental ranges: <140 mg/dL before meals <180 mg/dL all other times of the day Specimen Anatomical Collection Method Collection Time Receive d Time (Source) Location / / Volume Laterality Blood specimen 07/11/2017 12:17 7 (specimen) AM EST 12:17 AM EST Yuan Webber MD POINT OF CARE TEST ORDERABLE S Performing Organization Address City/[facility]/[place] [address] POCT Glucose (07/10/2017 8:47 PM EST) athologist Signature POC Glucose 191 65 - 199 [place] mg/dL [facility] [...] Address City/State/[place] [address] POCT Glucose (07/10/2017 4:06 PM EST) athologist Signature POC Glucose 131 65 - 199 [place] mg/dL [facility] Comment: Supplemental ranges: <140 mg/dL before meals <180 mg/dL all other times of the day Specimen Anatomical Collection Method Collection Time Receive d Time (Source) Location / / Volume Laterality Blood specimen 07/10/2017 4:06 PM 017 4:06 (specimen) EST PM EST Yuan Webber MD POINT OF CARE TEST ORDERABLE S Performing Organization Address City/[facility]/[place] [address] POCT Glucose (07/10/2017 3:08 PM EST) athologist Signature POC Glucose 151 65 - 199 [place] mg/dL [facility] [...] Address City/State/[place] [address] POCT Glucose (07/10/2017 2:25 PM EST) athologist Signature POC Glucose 146 65 - 199 [facility] mg/dL [facility] [...] Address City/State/ZIP Code Phon e Number [address] POCT Glucose (07/10/2017 1:23 PM EST) P athologist Signature POC Glucose 166 65 - 199 [place] mg/dL [facility] Comment: Supplemental ranges: <140 mg/dL before meals <180 mg/dL all other times of the day Specimen Anatomical Collection Method Collection Time Receive d Time (Source) Location / / Volume Laterality Blood specimen 07/10/2017 1:23 PM 017 1:23 (specimen) EST PM EST Yuan Webber MD POINT OF CARE TEST ORDERABLE S Performing Organization Address City/[facility]/ZIP Code Phon e Number [address] POCT Glucose (07/10/2017 11:52 AM EST) P athologist Signature POC Glucose 157 65 - 199 [place] mg/dL [facility] Comment: Supplemental ranges: <140 mg/dL before meals <180 mg/dL all other times of the day Specimen Anatomical Collection Method Collection Time Receive d Time (Source) Location / / Volume Laterality Blood specimen 07/10/2017 11:52 7 (specimen) AM EST 11:52 AM EST Yuan Webber MD POINT OF CARE TEST ORDERABLE S Performing Organization Address City/[facility]/[place] [address] POCT Glucose (07/10/2017 11:01 AM EST) P athologist Signature POC Glucose 158 65 - 199 [place] mg/dL [facility] [...] Address City/State/ZIP Code Phon e Number [address] POCT Glucose (07/10/2017 9:54 AM EST) athologist Signature POC Glucose 160 65 - 199 [place] mg/dL [facility] Comment: Supplemental ranges: <140 mg/dL before meals <180 mg/dL all other times of the day Specimen Anatomical Collection Method Collection Time Receive d Time (Source) Location / / Volume Laterality Blood specimen 07/10/2017 9:54 AM 017 9:54 (specimen) EST AM EST Yuan Webber MD POINT OF CARE TEST ORDERABLE S Performing Organization Address City/[facility]/ZIP Code Phon e Number [address] POCT Glucose (07/10/2017 8:58 AM EST) athologist Signature POC Glucose 183 65 - 199 [place] mg/dL [facility] [...] Address City/State/ZIP Code Phon e Number [address] POCT Glucose (07/10/2017 8:01 AM EST) athologist Signature POC Glucose 173 65 - 199 [facility] mg/dL [facility] [...] Address City/State/ZIP Code Phon e Number [address] POCT Glucose (07/10/2017 7:05 AM EST) athologist Signature POC Glucose 166 65 - 199 [place] mg/dL [facility] [...] Address City/State/ZIP Code Phon e Number [address] POCT Glucose (07/10/2017 6:00 AM EST) athologist Signature POC Glucose 162 65 - 199 [facility] mg/dL [facility] LABORATORY [...] Address City/State/[place] [address] (ABNORMAL) Differential, Automated (07/10/2017 4:28 AM EST) [facility] gist Method Time Signature Neutrophils % 87.9 % [facility] LABORATORY Neutr Abs (ANC) 10.70 (H) 1.70 - [facility] 6.10 [facility] x10(3)/[facility] LABORATORY Lymphocytes % 3.9 % [facility] LABOR[facility]ORY Lymphocytes Abs 0.5 (L) 0.9 - 3.2 [facility] x10(3)/[facility] LABORATORY Monocytes % 7.0 % [facility]OR[facility]ORY Monocyte Abs 0.8 0.3 - 0.9 [facility] x10(3)/[facility] LABORATORY Eosinophils % 0.3 % [facility]ORY Eosinophils Abs 0.0 0.0 - 0.4 [facility] x10(3)/[facility] LABORATORY Basophils % 0.2 % [facility]ORATORY Basophils Abs 0.0 0.0 - 0.1 [facility] x10(3)/[facility] LABORATORY Immature Gran % 0.70 % ST. [...] City/State/[place] [address] (ABNORMAL) Hemogram (07/10/2017 4:28 AM EST) Analysis Performed At Patho logist Time Signature WBC 12.2 (H) 4.0 - 9.5 [facility] x10(3)/[facility] LABORATORY RBC 3.31 (L) 4.58 - [facility] 5.54 [facility] x10(6)/[facility] LABORATORY Hemoglobin 9.8 (L) 13.7 - [facility] 16.5 gm/dL [facility] LABORATORY Hematocrit 30.0 (L) 40.5 - [facility] 48.5 % [facility] LABORATORY MCV 90.6 82.9 - [facility] 93.1 fL [facility] LABORATORY MCH 29.6 27.5 - [facility] 32.1 pg [facility] MCHC 32.7 32.0 - [facility] 35.7 gm/dL [facility] LABORATORY Platelets 135 (L) 145 - 357 [facility] x10(3)/[facility] LABORATORY RDWSD 50.8 (H) 36.0 - [facility] 45.0 [facility] LABORATORY RDWCV 15.4 (H) 11.4 - [facility] 13.8 % [facility] LABORATORY MPV 10.0 7.6 - 12.9 [facility] LABORATORY nRBC % Auto 0.0 % [facility] LABORATORY nRBC Abs Auto 0.000 0.000 - [facility] 0.000 [facility] x10(3)/[facility] LABORATORY Specimen Anatomical Collection Method Collection Time Receive d Time (Source) Location / / Volume Laterality Blood specimen 07/10/2017 4:28 AM 017 4:36 (specimen) EST AM EST Resulting Agency Comment Spec In Lab Yuan Webber MD HEMATOLOGY ORDERABLES Performing Organization Address City/State/[place] [address] (ABNORMAL) Basic Metabolic Panel (non-fasting) (07/10/2017 4:28 AM EST) athologist Signature Glucose Lvl 178 65 - 199 [facility] mg/dL [facility] LABORATORY [...] [facility] Estimated GFR 60 >=60 [facility] Comment: The reported eGFR should be multiplied b y 1.2 for patients. The MDRD is not an appropriate measure o f renal function for patients with body mass extremes or in patients with acute kidney failure. http://Sococo/DHnkdep http://Sococo/DHMCnkf Specimen Anatomical Collection Method Collection Time Receive d Time (Source) Location / / Volume Laterality Blood specimen 07/10/2017 4:28 AM 017 4:36 (specimen) EST AM EST Resulting Agency Comment Spec In Lab Yuan Webber MD CHEMISTRY ORDERABLES Performing Organization Address City/[facility]/ZIP Code Phon e Number [address] POCT Glucose (07/10/2017 4:26 AM EST) P athologist Signature POC Glucose 176 65 - 199 [facility] mg/dL [facility] LABORATORY [...] Address City/State/[place] [address] (ABNORMAL) POCT Glucose (07/10/2017 3:06 AM EST) P athologist Signature POC Glucose 204 (H) 65 - 199 [facility] mg/dL [facility] LABORATORY Comment: Supplemental ranges: <140 mg/dL before meals <180 mg/dL all other times of the day Specimen Anatomical Collection Method Collection Time Receive d Time (Source) Location / / Volume Laterality Blood specimen 07/10/2017 3:06 AM 017 3:06 (specimen) EST AM EST Yuan Webber MD POINT OF CARE TEST ORDERABLE S Performing Organization Address City/[facility]/[place] [address] (ABNORMAL) POCT Glucose (07/10/2017 2:10 AM EST) P athologist Signature POC Glucose 203 (H) 65 - 199 [place] mg/dL [facility] LABORATORY Comment: Supplemental ranges: <140 mg/dL before meals <180 mg/dL all other times of the day Specimen Anatomical Collection Method Collection Time Receive d Time (Source) Location / / Volume Laterality Blood specimen 07/10/2017 2:10 AM 017 2:10 (specimen) EST AM EST Yuan Webber MD POINT OF CARE TEST ORDERABLE S Performing Organization Address City/[facility]/[place] [address] POCT Glucose (07/10/2017 1:09 AM EST) P athologist Signature POC Glucose 196 65 - 199 [place] mg/dL [facility] LABORATORY [...] Address City/State/[place] [address] POCT Glucose (07/10/2017 12:10 AM EST) P athologist Signature POC Glucose 173 65 - 199 [place] mg/dL [facility] [...] Address City/State/ZIP Code Phon e Number [address] POCT Glucose (07/09/2017 11:01 PM EST) athologist Signature POC Glucose 140 65 - 199 [place] mg/dL [facility] LABORATORY Comment: Supplemental ranges: <140 mg/dL before meals <180 mg/dL all other times of the day Specimen Anatomical Collection Method Collection Time Receive d Time (Source) Location / / Volume Laterality Blood specimen 07/09/2017 11:01 7 (specimen) PM EST 11:01 PM EST Yuan Webber MD POINT OF CARE TEST ORDERABLE S Performing Organization Address City/[facility]/ZIP Code Phon e Number [address] POCT Glucose (07/09/2017 10:05 PM EST) athologist Signature POC Glucose 144 65 - 199 [place] mg/dL [facility] LABORATORY [...] Address City/State/[place] [address] POCT Glucose (07/09/2017 9:31 PM EST) athologist Signature POC Glucose 121 65 - 199 [place] mg/dL [facility] [...] Address City/State/ZIP Code Phon e Number [address] POCT Glucose (07/09/2017 9:03 PM EST) athologist Signature POC Glucose 98 65 - 199 [place] mg/dL [facility] LABORATORY [...] Address City/State/ZIP Code Phon e Number [address] [address] POCT Glucose (07/09/2017 8:09 PM EST) athologist Signature POC Glucose 117 65 - 199 [place] mg/dL [facility] [...] Address City/State/ZIP Code Phon e Number [address] POCT Glucose (07/09/2017 5:40 PM EST) athologist Signature POC Glucose 155 65 - 199 [facility] mg/dL [facility] [...] Address City/State/ZIP Code Phon e Number [address] POCT Glucose (07/09/2017 4:24 PM EST) athologist Signature POC Glucose 164 65 - 199 [place] mg/dL [facility] LABORATORY Comment: Supplemental ranges: <140 mg/dL before meals <180 mg/dL all other times of the day Specimen Anatomical Collection Method Collection Time Receive d Time (Source) Location / / Volume Laterality Blood specimen 07/09/2017 4:24 PM 017 4:24 (specimen) EST PM EST Yuan Webber MD POINT OF CARE TEST ORDERABLE S Performing Organization Address City/[facility]/ZIP Code Phon e Number [address] POCT Glucose (07/09/2017 3:19 PM EST) athologist Signature POC Glucose 166 65 - 199 [place]HAORY[place] mg/dL [facility] LABORATORY Comment: Supplemental ranges: <140 mg/dL before meals <180 mg/dL all other times of the day Specimen Anatomical Collection Method Collection Time Receive d Time (Source) Location / / Volume Laterality Blood specimen 07/09/2017 3:19 PM 017 3:19 (specimen) EST PM EST Yuan Webber MD POINT OF CARE TEST ORDERABLE S Performing Organization Address City/[facility]/[place] [address] POCT Glucose (07/09/2017 2:26 PM EST) athologist Signature POC Glucose 179 65 - 199 [place] mg/dL [facility] [...] City/State/[place] [address] (ABNORMAL) POCT Glucose (07/09/2017 1:29 PM EST) P athologist Signature POC Glucose 210 (H) 65 - 199 [facility] mg/dL [facility] [...] City/State/[place] [address] POCT Glucose (07/09/2017 12:20 PM EST) athologist Signature POC Glucose 172 65 - 199 [facility] mg/dL [facility] [...] City/State/[place] [address] POCT Glucose (07/09/2017 11:24 AM EST) athologist Signature POC Glucose 156 65 - 199 [facility] mg/dL [facility] [...] City/State/[place] [address] POCT Glucose (07/09/2017 11:11 AM EST) athologist Signature POC Glucose 172 65 - 199 [place] ZHAORYAN mg/dL [facility] LABORATORY [...] Address City/State/ZIP Code Phon e Number [address] POCT Glucose (07/09/2017 10:08 AM EST) athologist Signature POC Glucose 176 65 - 199 [place] ZHAORY[place] mg/dL [facility] LABORATORY [...] Address City/State/ZIP Code Phon e Number [address] POCT Glucose (07/09/2017 8:02 AM EST) athologist Signature POC Glucose 178 65 - 199 [place] ZHAORY[place] mg/dL [facility] LABORATORY [...] Address City/State/[place] [address] (ABNORMAL) BLOOD GAS 2 ARTERIAL (07/09/2017 5:37 AM EST) Analysis Performed At Patho logist Time Signature pH Art 7.36 7.35 - [facility] 7.45 [facility] LABORATORY pCO2 Art 38 35 - 45 [facility] mmHg [facility] LABORATORY pO2 Art 79 (L) 85 - 104 [facility] LABORATORY HCO3 Art 20.9 20.0 - [facility] 26.0 [facility] mmol/L [facility] BE Art -4.6 (L) -3.0 - 3.0 [facility] mmol/L [facility] LABORATORY Hgb Blood Gas 10.5 (L) 13.7 - [facility] 16.5 gm/dL [facility] O2HB Art 93.8 (L) 94.0 - [facility] 97.0 % [facility] LABORATORY COHB Art 0.3 % [...] Webber MD CHEMISTRY ORDERABLES Performing Organization Address City/[facility]/ZIP Code Phon e Number [address] POCT Glucose (07/09/2017 3:27 AM EST) athologist Signature POC Glucose 192 65 - 199 [facility] LABORATORY [...] Address City/State/[place] [address] (ABNORMAL) Basic Metabolic Panel (non-fasting) (07/09/2017 2:30 AM EST) athologist Signature Glucose Lvl 179 65 - 199 [facility] mg/dL [facility] LABORATORY [...] or in patients with acute kidney failure. [email or web address] Specimen Anatomical Collection Method Collection Time Receive d Time (Source) Location / / Volume Laterality Blood specimen Venous Draw / 07/09/2017 2:30 AM 2016 2:42 (specimen) Unknown EST AM EST Resulting Agency Comment Spec In Lab Yuan Webber MD CHEMISTRY ORDERABLES Performing Organization Address City/[facility] [place] [address] (ABNORMAL) Potassium (07/09/2017 2:30 AM EST) P athologist Signature Potassium 5.1 (H) 3.5 - 5.0 [facility] mmol/L [facility] LABORATORY Comment: Please note: ??Patients [...] Webber MD CHEMISTRY ORDERABLES Performing Organization Address City/[facility]/ZIP [facility] [place] [address] (ABNORMAL) Hemogram (07/09/2017 2:30 AM EST) Analysis Performed At Patho logist Time Signature WBC 12.5 (H) 4.0 - 9.5 [facility] x10(3)/[facility] LABORATORY RBC 3.38 (L) 4.58 - [facility] 5.54 [facility] x10(6)/[facility] LABORATORY Hemoglobin 10.1 (L) 13.7 - [place] ZHAORYAN 16.5 gm/dL [facility] LABORATORY Hematocrit 30.3 (L) 40.5 - [facility] 48.5 % [facility] LABORATORY MCV 89.6 82.9 - [facility] 93.1 [facility] LABORATORY MCH 29.9 27.5 - [place] ZHAORYAN 32.1 pg [facility] LABORATORY MCHC 33.3 32.0 - [place] ZHAORYAN 35.7 gm/dL [facility] LABORATORY Platelets 127 (L) 145 - 357 [facility] x10(3)/[facility] LABORATORY RDWSD 49.3 (H) 36.0 - [facility] 45.0 [facility] LABORATORY RDWCV 15.2 (H) 11.4 - [facility] 13.8 % [facility] LABORATORY MPV 9.9 7.6 - 12.9 [facility] LABORATORY nRBC % Auto 0.0 % [facility] LABORATORY nRBC Abs Auto 0.000 0.000 - [place] ZHAORYAN 0.000 [facility] x10(3)/[facility] LABORATORY Specimen Anatomical Collection Method Collection Time Receive d Time (Source) Location / / Volume Laterality Blood specimen 07/09/2017 2:30 AM 017 2:41 (specimen) EST AM EST Resulting Agency Comment Spec In Lab Yuan Webber MD HEMATOLOGY ORDERABLES Performing Organization Address City/State/[place] [address] POCT Glucose (07/09/2017 2:10 AM EST) P athologist Signature POC Glucose 169 65 - 199 [facility] mg/dL [facility] LABORATORY [...] Address City/State/ZIP Code Phon e Number [address] POCT Glucose (07/09/2017 1:01 AM EST) P athologist Signature POC Glucose 173 65 - 199 [place] DAVIS mg/dL [facility] LABORATORY Comment: Supplemental ranges: <140 mg/dL before meals <180 mg/dL all other times of the day Specimen Anatomical Collection Method Collection Time Receive d Time (Source) Location / / Volume Laterality Blood specimen 07/09/2017 1:01 AM 017 1:01 (specimen) EST AM EST Yuan Webber MD POINT OF CARE TEST ORDERABLE S Performing Organization Address City/[facility]/[place] [address] Blood culture (07/09/2017 12:40 AM EST) [facility] gist Method Time Signature Blood Culture No growth KATALINA DAIVS at 5 days. [facility] LABORATORY Specimen Anatomical Collection Method Collection Time Receive d Time (Source) Location / / Volume Laterality Blood specimen STRUCTURE OF RIGHT 07/09/2017 12:40 3:58 (specimen) UPPER LIMB / AM EST AM EST Unknown Resulting Agency Comment Spec In Lab Yuan Webber MD MICROBIOLOGY - BLOOD ORDERAB LES Performing Organization Address City/[facility]/ZIP Code [place] [address] Blood culture (07/09/2017 12:30 AM EST) Patholo gist Method Time Signature Blood Culture No growth KATALINA DAVIS at 5 days. [facility] LABORATORY Specimen Anatomical Collection Method Collection Time Receive d Time (Source) Location / / Volume Laterality Blood specimen STRUCTURE OF LEFT 07/09/2017 12:30 06/25 3:59 (specimen) UPPER LIMB / AM EST AM EST Unknown Resulting Agency Comment Spec In Lab Yuan Webber MD MICROBIOLOGY - BLOOD ORDERAB LES Performing Organization Address City/[facility]/ZIP Code [place] [address] (ABNORMAL) Urinalysis Microscopic Exam (07/09/2017 12:05 AM EST) Analysis Performed At Patho logist Time Signature RBC UA 32 (H) 0 - 3 /HPF [facility] LABORATORY WBC UA 5 (H) 0 - 3 /HPF [facility] LABORATORY Squam Epith UA <1 <=4 /HPF [facility] LABORATORY Hyaline Cast 17 (H) 0 - 2 /LPF [facility] LABORATORY Gran Cast UA 1 (H) <=0 /LPF [facility] LABORATORY Uric Ac Bianca Rare (A) None /HPF [facility] LABORATORY Specimen (Source) Anatomical Collection Method Collection Time Re ceived Time Location / / Volume Laterality Urine specimen 07/09/2017 12:05 7 obtained via AM EST 12:39 AM EST indwelling urinary catheter (specimen) Resulting Agency Comment Spec In Lab Yuan Webber MD URINE ORDERABLES Performing Organization Address City/State/[place] [address] (ABNORMAL) Urinalysis with reflex Culture (07/09/2017 12:05 AM EST) Patholo gist Method Time Signature Glucose UA Negative Negative [facility] mg/dL [facility] LABORATORY Protein UA 30 (A) Negative [facility] mg/dL [facility] LABORATORY Bilirubin UA Negative Negative [facility] mg/dL [facility] LABORATORY Comment: Clinical correlation required [...] [facility] Nitrite UA Negative Negative [facility] LABORATORY Leukocytes UA Negative Negative [facility] LABORATORY Appearance UA Hazy (A) Clear [facility] LABORATORY Spec [place] UA 1.025 1.002 - 1.030 [facility] LABORATORY Color UA Yellow Yellow [facility] LABORATORY Culture Reflexed No [facility] LABORATORY Specimen (Source) Anatomical Collection Method Collection Time Re ceived Time Location / / Volume Laterality Urine specimen 07/09/2017 12:05 7 obtained via AM EST 12:39 AM EST indwelling urinary catheter (specimen) Resulting Agency Comment Spec In Lab Yuan Webber MD URINE ORDERABLES Performing Organization Address City/[facility]/ZIP Code Phon e Number [address] POCT Glucose (07/08/2017 11:01 PM EST) athologist Signature POC Glucose 191 65 - 199 [facility] mg/dL [facility] LABORATORY Comment: Supplemental ranges: <140 mg/dL before meals <180 mg/dL all other times of the day Specimen Anatomical Collection Method Collection Time Receive d Time (Source) Location / / Volume Laterality Blood specimen 07/08/2017 11:01 7 (specimen) PM EST 11:01 PM EST Yuan Webber MD POINT OF CARE TEST ORDERABLE S Performing Organization Address City/[facility]/ZIP Code Phon e Number [address] POCT Glucose (07/08/2017 10:04 PM EST) athologist Signature POC Glucose 198 65 - 199 [facility] mg/dL [facility] LABORATORY [...] Address City/State/[place] [address] Prepare Albumin 5% in [...] Address City/State/[place] [address] POCT Glucose (07/08/2017 8:28 PM EST) athologist Signature POC Glucose 195 65 - 199 [facility] mg/dL [facility] LABORATORY Comment: Supplemental ranges: <140 mg/dL before meals <180 mg/dL all other times of the day Specimen Anatomical Collection Method Collection Time Receive d Time (Source) Location / / Volume Laterality Blood specimen 07/08/2017 8:28 PM 017 8:28 (specimen) EST PM EST Yuan Wbeber MD POINT OF CARE TEST ORDERABLE S Performing Organization Address City/State/[place] [address] (ABNORMAL) POCT Glucose (07/08/2017 7:13 PM EST) athologist Signature POC Glucose 220 (H) 65 - 199 [facility] mg/dL [facility] LABORATORY [...] Address City/State/[place] [address] POCT Glucose (07/08/2017 5:04 PM EST) athologist Signature POC Glucose 147 65 - 199 [facility] mg/dL [facility] LABORATORY [...] City/State/[place] [address] (ABNORMAL) BLOOD GAS 2 ARTERIAL (07/08/2017 4:13 PM EST) Analysis Performed At Patho logist Time Signature pH Art 7.38 7.35 - [facility] 7.45 [facility] LABORATORY pCO2 Art 36 35 - 45 [facility] mmHg [facility] LABORATORY pO2 Art 91 85 - 104 [facility] LABORATORY HCO3 Art 20.9 20.0 - [facility] 26.0 [facility] mmol/L [facility] BE Art -4.2 (L) -3.0 - 3.0 [facility] mmol/L [facility] LABORATORY Hgb Blood Gas 11.7 (L) 13.7 - [facility] 16.5 gm/dL [facility] LABORATORY O2HB Art 95.1 94.0 - [facility] 97.0 % [facility] LABORATORY COHB Art 0.6 % [...] Webber MD CHEMISTRY ORDERABLES Performing Organization Address City/[facility]/ZIP [facility] [address] POCT Glucose (07/08/2017 4:01 PM EST) P athologist Signature POC Glucose 148 65 - 199 [facility] mg/dL [facility] LABORATORY Comment: Supplemental ranges: <140 mg/dL before meals <180 mg/dL all other times of the day Specimen Anatomical Collection Method Collection Time Receive d Time (Source) Location / / Volume Laterality Blood specimen 07/08/2017 4:01 PM 017 4:01 (specimen) EST PM EST Yuan Webber MD POINT OF CARE TEST ORDERABLE S Performing Organization Address City/[facility]/[place] [address] POCT Glucose (07/08/2017 3:21 PM EST) P athologist Signature POC Glucose 118 65 - 199 [facility] mg/dL [facility] LABORATORY [...] Address City/State/ZIP Code Phon e Number [address] POCT Glucose (07/08/2017 2:01 PM EST) athologist Signature POC Glucose 129 65 - 199 [place] RYAN mg/dL [facility] LABORATORY Comment: Supplemental ranges: <140 mg/dL before meals <180 mg/dL all other times of the day Specimen Anatomical Collection Method Collection Time Receive d Time (Source) Location / / Volume Laterality Blood specimen 07/08/2017 2:01 PM 017 2:01 (specimen) EST PM EST Yuan Webber MD POINT OF CARE TEST ORDERABLE S Performing Organization Address City/[facility]/ZIP Code Phon e Number [address] POCT Glucose (07/08/2017 11:53 AM EST) athologist Signature POC Glucose 156 65 - 199 [place] RYAN mg/dL [facility] LABORATORY Comment: Supplemental ranges: <140 mg/dL before meals <180 mg/dL all other times of the day Specimen Anatomical Collection Method Collection Time Receive d Time (Source) Location / / Volume Laterality Blood specimen 07/08/2017 11:53 7 (specimen) AM EST 11:53 AM EST Yuan Webber MD POINT OF CARE TEST ORDERABLE S Performing Organization Address City/[facility]/ZIP Code Phon e Number [address] POCT Glucose (07/08/2017 11:04 AM EST) athologist Signature POC Glucose 181 65 - 199 [place] RYAN mg/dL [facility] [...] Address City/State/[place] [address] (ABNORMAL) POCT Glucose (07/08/2017 9:24 AM EST) athologist Signature POC Glucose 203 (H) 65 - 199 [facility] mg/dL [facility] LABORATORY [...] Address City/State/[place] [address] APTT (07/08/2017 8:40 AM [...] Webber MD HEMATOLOGY ORDERABLES Performing Organization Address City/[facility]/[place] [address] (ABNORMAL) Prothrombin Time (07/08/2017 [...] Address City/State/[place] [address] (ABNORMAL) POCT Glucose (07/08/2017 7:38 AM EST) athologist Signature POC Glucose 232 (H) 65 - 199 [facility] mg/dL [facility] LABORATORY Comment: Supplemental ranges: <140 mg/dL before meals <180 mg/dL all other times of the day Specimen Anatomical Collection Method Collection Time Receive d Time (Source) Location / / Volume Laterality Blood specimen 07/08/2017 7:38 AM 017 7:38 (specimen) EST AM EST Yuan Webber MD POINT OF CARE TEST ORDERABLE S Performing Organization Address City/[facility]/[place] [address] (ABNORMAL) POCT Glucose (07/08/2017 7:07 AM EST) athologist Signature POC Glucose 234 (H) 65 - 199 [facility] mg/dL [facility] LABORATORY Comment: Supplemental ranges: <140 mg/dL before meals <180 mg/dL all other times of the day Specimen Anatomical Collection Method Collection Time Receive d Time (Source) Location / / Volume Laterality Blood specimen 07/08/2017 7:07 AM 017 7:07 (specimen) EST AM EST Yuan Webber MD POINT OF CARE TEST ORDERABLE S Performing Organization Address City/[facility]/[place] [address] (ABNORMAL) POCT Glucose (07/08/2017 6:04 AM EST) athologist Signature POC Glucose 225 (H) 65 - 199 [facility] mg/dL [facility] LABORATORY [...] Address City/State/[place] [address] (ABNORMAL) POCT Glucose (07/08/2017 5:31 AM EST) athologist Signature POC Glucose 216 (H) 65 - 199 [facility] mg/dL [facility] LABORATORY [...] Address City/State/[place] [address] (ABNORMAL) POCT Glucose (07/08/2017 4:52 AM EST) athologist Signature POC Glucose 257 (H) 65 - 199 [facility] mg/dL [facility] LABORATORY [...] Address City/State/[place] [address] (ABNORMAL) BLOOD GAS 2 ARTERIAL (07/08/2017 4:04 AM EST) Analysis Performed At Patho logist Time Signature pH Art 7.30 (L) 7.35 - [facility] 7.45 [facility] LABORATORY pCO2 Art 41 35 - 45 [facility] mmHg [facility] LABORATORY pO2 Art 83 (L) 85 - 104 [facility] LABORATORY HCO3 Art 19.6 (L) 20.0 - [facility] 26.0 [facility] mmol/L [facility] BE Art -6.8 (L) -3.0 - 3.0 [facility] mmol/L [facility] LABORATORY Hgb Blood Gas 12.2 (L) 13.7 - [facility] 16.5 gm/dL [facility] O2HB Art 93.5 (L) 94.0 - [facility] 97.0 % [facility] COHB Art 0.4 % [facility] [...] by electrical/instrument technician. FIO2 Art 40 % [facility] LABORATORY PF Ratio Art 208 [facility] LABORATORY Specimen Anatomical Collection Method Collection Time Receive d Time (Source) Location / / Volume Laterality Blood specimen 07/08/2017 4:04 AM 017 4:04 (specimen) EST AM EST aDphne Shahid MD CHEMISTRY ORDERABLES Performing Organization Address City/State/ZIP Code Phon e Number [address] Scan, Peripheral Blood (07/08/2017 [...] Webber MD HEMATOLOGY ORDERABLES Performing Organization Address City/[facility]/ZIP Code Phon e Number [address] (ABNORMAL) Differential, Automated (07/08/2017 4:00 AM EST) Patholo gist Method Time Signature Neutrophils % 85.4 % [facility] LABORATORY Neutr Abs (ANC) 16.07 (H) 1.70 - [facility] 6.10 [facility] x10(3)/[facility] LABORATORY Lymphocytes % 3.5 % [facility] LABORATORY Lymphocytes Abs 0.6 (L) 0.9 - 3.2 [facility] x10(3)/[facility] LABORATORY Monocytes % 10.4 % [facility] LABORATORY Monocyte Abs 2.0 (H) 0.3 - 0.9 [facility] x10(3)/[facility] LABORATORY Eosinophils % 0.0 % [facility] LABORATORY Eosinophils Abs 0.0 0.0 - 0.4 [facility] x10(3)/[facility] LABORATORY Basophils % 0.1 % [facility] LABORATORY Basophils Abs 0.0 0.0 - 0.1 [facility] x10(3)/[facility] LABORATORY Immature Gran % 0.60 % ST. [...] Gran Abs 0.12 (H) 0.00 - 0.04 x10(3)/[facility] LABORATORY Specimen Anatomical Collection Method Collection Time Receive d Time (Source) Location / / Volume Laterality Blood specimen 07/08/2017 4:00 AM 017 4:09 (specimen) EST AM EST Resulting Agency Comment Spec In Lab Yuan Webber MD HEMATOLOGY ORDERABLES Performing Organization Address City/State/[place] [address] (ABNORMAL) Hemogram (07/08/2017 4:00 AM EST) Analysis Performed At Patho logist Time Signature WBC 18.8 (H) 4.0 - 9.5 [facility] x10(3)/[facility] LABORATORY RBC 4.00 (L) 4.58 - [facility] x10(6[facility] LABORATORY Hemoglobin 11.9 (L) 13.7 - [facility] 16.5 gm/dL [facility] LABORATORY Hematocrit 35.9 (L) 40.5 - [facility] 48.5 % [facility] LABORATORY MCV 89.8 82.9 - [facility]1 [facility] LABORATORY MCH 29.8 27.5 - [facility] 32.1 pg [facility] LABORATORY MCHC 33.1 32.0 - [facility] gm/dL [facility] LABORATORY Platelets 232 145 - 357 [facility] x10(3)/[facility] LABORATORY RDWSD 47.6 (H) 36.0 - [facility] 45.0 [facility] RDWCV 14.5 (H) 11.4 - [facility] 13.8 % [facility] LABORATORY MPV 9.5 7.6 - 12.9 [facility] LABORATORY nRBC % Auto 0.0 % [facility] LABORATORY nRBC Abs Auto 0.000 0.000 - [facility] 0.000 [facility] x10(3)/[facility] LABORATORY Specimen Anatomical Collection Method Collection Time Receive d Time (Source) Location / / Volume Laterality Blood specimen 07/08/2017 4:00 AM 017 4:09 (specimen) EST AM EST Resulting Agency Comment Spec In Lab Yuan Webber MD HEMATOLOGY ORDERABLES Performing Organization Address City/[facility]/[place] [address] (ABNORMAL) Electrolytes panel (07/08/2017 4:00 AM EST) athologist Signature Sodium 139 135 - 145 [facility] mmol/L [facility] LABORATORY Potassium 4.7 3.5 - 5.0 [facility] mmol/L [facility] LABORATORY Comment: result rechecked-JLK Please [...] Webber MD CHEMISTRY ORDERABLES Performing Organization Address City/[facility]/[place] [address] (ABNORMAL) Cardiac Enzymes (LEB/CGP) (07/08/2017 4:00 AM EST) P athologist Signature Troponin-T 1.88 (H) 0.00 - [facility] 0.00 ng/mL [facility] LABORATORY Comment: The 99th percentile [...] additional sample may be indicated. Reference: Third [place] Definition of Myocardial Infarction. Journal of the [place] [employer] 2012;60:1581-98 CK, Total 413 [...] City/State/[place] [address] (ABNORMAL) Glucose, fasting (07/08/2017 4:00 AM EST) athologist Signature Glucose 287 (H) 65 - 99 [facility] Fasting mg/dL [facility] LABORATORY Comment: ?Fasting* Glucose Interpretive [...] Webber MD CHEMISTRY ORDERABLES Performing Organization Address City/[facility] Code Phon e Number [address] (ABNORMAL) Creatinine (07/08/2017 4:00 AM EST) Analysis Performed At Patho logist Time Signature Creatinine 1.55 (H) 0.80 - [facility] 1.50 mg/dL [facility] LABORATORY Estimated GFR 44 (L) >=60 [facility] LABORATORY Comment: The reported eGFR should be multiplied b y 1.2 for patients. The MDRD is not an appropriate measure o f renal function for patients with body mass extremes or in patients with acute kidney failure. http://Omnisens.Critique^It/DHnkdep http://Sococo/DHMCnkf Specimen Anatomical Collection Method Collection Time Receive d Time (Source) Location / / Volume Laterality Blood specimen 07/08/2017 4:00 AM 017 4:09 (specimen) EST AM EST Resulting Agency Comment Spec In Lab Yuan Webber MD CHEMISTRY ORDERABLES Performing Organization Address City/[facility]/ZIP Code Phon e Number [address] BUN (07/08/2017 4:00 AM EST) P athologist Signature BUN 16 10 - 20 [facility] mg/dL [facility] LABORATORY Specimen Anatomical Collection Method Collection Time Receive d Time (Source) Location / / Volume Laterality Blood specimen 07/08/2017 4:00 AM 017 4:09 (specimen) EST AM EST Resulting Agency Comment Spec In Lab Yuan Webber MD CHEMISTRY ORDERABLES Performing Organization Address City/[facility]/ZIP Code Phon e Number [address] (ABNORMAL) POCT Glucose (07/08/2017 3:00 AM EST) P athologist Signature POC Glucose 273 (H) 65 - 199 [facility] mg/dL [facility] LABORATORY Comment: Supplemental ranges: <140 mg/dL before meals <180 mg/dL all other times of the day Specimen Anatomical Collection Method Collection Time Receive d Time (Source) Location / / Volume Laterality Blood specimen 07/08/2017 3:00 AM 017 3:00 (specimen) EST AM EST Daphne Shahid MD POINT OF CARE TEST ORDERABLE S Performing Organization Address City/[facility]/[place] [address] (ABNORMAL) POCT Glucose (07/08/2017 1:57 AM EST) P athologist Signature POC Glucose 288 (H) 65 - 199 [facility] mg/dL [facility] LABORATORY Comment: Supplemental ranges: <140 mg/dL before meals <180 mg/dL all other times of the day Specimen Anatomical Collection Method Collection Time Receive d Time (Source) Location / / Volume Laterality Blood specimen 07/08/2017 1:57 AM 017 1:57 (specimen) EST AM EST Daphne Shahid MD POINT OF CARE TEST ORDERABLE S Performing Organization Address City/[facility]/[place] [address] (ABNORMAL) POCT Glucose (07/08/2017 1:01 AM EST) P athologist Signature POC Glucose 315 (H) 65 - 199 [facility] mg/dL [facility] LABORATORY [...] City/State/[place] [address] (ABNORMAL) BLOOD GAS 2 ARTERIAL (07/08/2017 12:09 AM EST) athologist Signature pH Art 7.26 7.35 - [facility] (Critical) 7.45 [facility] LABORATORY Comment: Noted by electrical/instrument technician. pCO2 [...] [facility] LABORATORY COHB Art 0.2 % [facility] [...] by electrical/instrument technician. FIO2 Art 40 % [facility] LABORATORY PF Ratio Art 240 [facility] LABORATORY Specimen Anatomical Collection Method Collection Time Receive d Time (Source) Location / / Volume Laterality Blood specimen Arterial Draw / 07/08/2017 12:09 2016 5:31 (specimen) Unknown AM EST AM EST Resulting Agency Comment Spec In Lab Samy Maldonado MD CHEMISTRY ORDERABLES Performing Organization Address City/[facility]/[place] [address] (ABNORMAL) POCT Glucose (07/07/2017 10:56 PM EST) P athologist Signature POC Glucose 292 (H) 65 - 199 [facility] mg/dL [facility] LABORATORY [...] Address City/State/[place] [address] (ABNORMAL) BLOOD GAS 2 ARTERIAL (07/07/2017 10:04 PM EST) P athologist Signature pH Art 7.22 7.35 - [facility] (Critical) 7.45 [facility] LABORATORY Comment: Noted by electrical/instrument technician. pCO2 [...] [facility] LABORAT[facility] COHB Art 0.7 % [facility] [...] by electrical/instrument technician. FIO2 Art 40 % [facility] LABORATORY PF Ratio Art 235 [facility] LABORATORY Specimen Anatomical Collection Method Collection Time Receive d Time (Source) Location / / Volume Laterality Blood specimen 07/07/2017 10:04 7 (specimen) PM EST 10:04 PM EST Daphne Shahid MD CHEMISTRY ORDERABLES Performing Organization Address City/State/[place] [address] (ABNORMAL) Hemoglobin (07/07/2017 10:00 PM EST) athologist Signature Hemoglobin 12.8 (L) 13.7 - [facility] 16.5 gm/dL [facility] LABORATORY Specimen Anatomical Collection Method Collection Time Receive d Time (Source) Location / / Volume Laterality Blood specimen 07/07/2017 10:00 7 (specimen) PM EST 10:13 PM EST Resulting Agency Comment Spec In Lab Yuan Webber MD HEMATOLOGY ORDERABLES Performing Organization Address City/[facility] Phon e Number [address] (ABNORMAL) Potassium (07/07/2017 10:00 PM EST) athologist [facility] Potassium 3.4 (L) 3.5 - 5.0 [facility] mmol/L [facility] LABORATORY Comment: Please note: ??Patients [...] Webber MD CHEMISTRY ORDERABLES Performing Organization Address [facility] [place] [address] (ABNORMAL) POCT Glucose (07/07/2017 8:49 PM EST) athologist Signature POC Glucose 241 (H) 65 - 199 [facility] mg/dL [facility] LABORATORY Comment: Supplemental ranges: <140 mg/dL before meals <180 mg/dL all other times of the day Specimen Anatomical Collection Method Collection Time Receive d Time (Source) Location / / Volume Laterality Blood specimen 07/07/2017 8:49 PM 017 8:49 (specimen) EST PM EST Daphne Shahid MD POINT OF CARE TEST ORDERABLE S Performing Organization Address City/[facility]/ZIP Code Phon e Number [address] Prepare Albumin 5% in [...] [facility]OWN BLOOD BANK ORDERABLES Performing Organization Address City/[facility]/ZIP Code Phon e Number [address] EKG 12 Lead (07/07/2017 7:17 PM EST) Component Value Ref Range Test Analysis Performed Pathologis t Method Time At Signature Ventricular rate 75 BPM MUSE SYSTEM Atrial Rate 75 BPM MUSE SYSTEM P-R Interval 168 ms MUSE SYSTEM QRS Duration 104 ms MUSE SYSTEM Q-T Interval 462 ms MUSE SYSTEM QTC Calculated 515 ms MUSE SYSTEM (Bezet) Calculated P [place] 52 degrees MUSE SYSTEM Calculated R [place] -40 degrees MUSE SYSTEM Calculated T [place] 39 degrees MUSE SYSTEM INTERPRETATION Normal sinus [...] pH Art 7.21 7.35 - [facility] (Critical) 7.45 [facility] LABORATORY Comment: Noted by electrical/instrument technician. pCO2 [...] [facility] LABORATORY COHB Art 0.5 % [facility] Comment: Noted by electrical/instrument technician. Please [...] by electrical/instrument technician. FIO2 Art 100 % [facility] LABORATORY PF Ratio Art 238 [facility] LABORATORY Specimen Anatomical Collection Method Collection Time Receive d Time (Source) Location / / Volume Laterality Blood specimen 07/07/2017 6:57 PM 017 6:57 (specimen) EST PM EST Daphne Shahid MD CHEMISTRY ORDERABLES Performing Organization Address City/State/[place] [address] (ABNORMAL) BLOOD GAS 2 ARTERIAL (07/07/2017 5:31 PM EST) athologist Signature pH Art 7.29 7.35 - [facility] (Critical) 7.45 [facility] LABORATORY Comment: Noted by electrical/instrument technician. pCO2 [...] [facility] LABORATORY COHB Art 0.3 % [facility] [...] Shahid MD CHEMISTRY ORDERABLES Performing Organization Address City/[facility]/[place] [address] Fibrinogen (07/07/2017 5:30 PM EST) athologist Signature Fibrinogen 224 180 - 510 [facility] mg/dL [facility] LABORATORY Comment: Called by: JEET, [...] Perez MD HEMATOLOGY ORDERABLES Performing Organization Address City/[facility]/ZIP Code Phon e Number [address] APTT (07/07/2017 5:30 PM [...] Perez MD HEMATOLOGY ORDERABLES Performing Organization Address City/[facility]/ZIP [facility] Phon e Number [address] (ABNORMAL) Prothrombin Time (07/07/2017 [...] Organization Address City/State/ZIP Code Phon e Number [place] [id number] HOSP[address] LAB[address]ORY Drive (ABNORMAL) Hemogram (07/07/2017 5:30 PM EST) P athologist Signature WBC 19.6 (H) 4.0 - 9.5 [facility] x10(3)/[facility] LABORATORY RBC 3.08 (L) 4.58 - [facility] 5.54 [facility] x10(6)/[facility] LABORATORY Hemoglobin 9.2 (L) 13.7 - [facility] 16.5 gm/dL [facility] LABORATORY Hematocrit 28.0 (L) 40.5 - [facility] 48.5 % [facility] LABORATORY Comment: This result has been called to MONICA MORAN by DONALD GROSSMAN on 07 07 2017 at 1759, and has been read back. MCV 90.9 82.9 - 93.[address] [facility] LABORATORY MCH 29.9 27.5 - 32.[address] [facility] LABORATORY MCHC 32.9 32.0 - 35.7 gm/dL [facility] LABORATORY Platelets 155 145 - 357 x10(3)/[facility] LABORATORY RDWSD 46.5 (H) 36.0 - 45.[address] [facility] LABORATORY RDWCV 14.1 (H) 11.4 - 13.8 % [facility] LABORATORY MPV 9.5 7.6 - 12.9 fL [facility] LABORATORY nRBC % Auto 0.0 % [facility] LABORATORY nRBC Abs Auto 0.000 0.000 - 0.000 x10(3)/[facility] LABORATORY Specimen Anatomical Collection Method Collection Time Receive d Time (Source) Location / / Volume Laterality Blood specimen 07/07/2017 5:30 PM 017 5:34 (specimen) EST PM EST Resulting Agency Comment Spec In Lab Yifan Perez MD HEMATOLOGY ORDERABLES Performing Organization Address [facility] Phon e Number [address] Prepare Platelets, Apheresis (07/07/2017 5:00 PM EST) athologist Signature Dispensed? Yes [facility] LABORATORY Specimen Anatomical Collection Method Collection Time Receive d Time (Source) Location / / Volume Laterality Blood specimen 07/07/2017 5:00 PM 017 4:58 (specimen) EST PM EST Daphne Shahid MD BLOOD BANK ORDERABLES Performing Organization Address [facility] Phon e Number [address] Platelet count (07/07/2017 4:55 PM EST) athologist Signature Platelets 177 145 - 357 [facility] x10(3)/[facility] LABORATORY Plat Immature 1.5 0.0 - 7.4 [facility] LABORATORY Comment: Limitation of the Immature Platelet Frac tion (IPF)-May be less reliable when the platelet count is less than 16p073/u L due to statistical imprecision. The IPF [...] in a decreased state of production. References: [employer] The Clinical Value of the Immature Platelet Fraction (IPF) in Cell Recovery Document Number [id number] 12/2010 [employer] The Role of the Imm ature Platelet Fraction (IPF) in the Differential Diagnosis of Thrombocytopen ia, Document [id number] V012/04/13 P012/06 Specimen Anatomical Collection Method Collection Time Receive d Time (Source) Location / / Volume Laterality Blood specimen 07/07/2017 4:55 PM 017 5:13 (specimen) EST PM EST Resulting Agency Comment Spec In Lab Daphne Shahid MD HEMATOLOGY ORDERABLES Performing Organization Address City/[facility]/[place] [address] (ABNORMAL) Hemoglobin and Hematocrit, blood (07/07/2017 4:55 PM EST) P athologist Signature Hemoglobin 9.1 (L) 13.7 - 16.5 [facility] gm/dL [facility] LABORATORY Comment: This result has [...] Shahid MD HEMATOLOGY ORDERABLES Performing Organization Address City/[facility]/[place] [address] (ABNORMAL) BLOOD GAS 2 ARTERIAL (07/07/2017 4:38 PM EST) Analysis Performed At Patho logist Time Signature pH Art 7.37 7.35 - [facility] 7.45 [facility] LABORATORY pCO2 Art 44 35 - 45 [facility] LABORATORY pO2 Art 322 (H) 85 - 104 [facility] HCO3 Art 24.9 20.0 - [facility] 26.0 [facility] mmol/L [facility] BE Art -0.4 -3.0 - 3.0 [facility] mmol/L [facility] Hgb Blood Gas 10.1 (L) 13.7 - [facility] 16.5 gm/dL [facility] O2HB Art 98.7 (H) 94.0 - [facility] 97.0 % [facility] COHB Art 0.1 % [facility] [...] [facility] Comment: Noted by electrical/instrument technician. [...] City/State/[place] [address] (ABNORMAL) BLOOD GAS 2 VENOUS (07/07/2017 4:06 PM EST) Analysis Performed At Patho logist Time Signature pH Cody 7.31 (L) 7.32 - [facility] 7.42 [facility] LABORATORY pCO2 [place] 47 41 - 51 [facility] LABORATORY pO2 [place] 53 (H) 25 - 40 [facility] LABORATORY HCO3 Cody 22.7 mmol/L [facility] LABORATORY BE Cody -3.7 mmol/L [facility] LABORATORY Hgb Blood Gas 10.2 (L) 13.7 - [facility] 16.5 gm/dL [facility] LABORATORY O2HB [place] 81.0 % [...] [facility] Comment: Noted by electrical/instrument technician. [...] [facility] LABORATORY BGas Source Venous [facility] LABORATORY Specimen Anatomical Collection Method Collection Time Receive d Time (Source) Location / / Volume Laterality Blood specimen 07/07/2017 4:06 PM 017 4:06 (specimen) EST PM EST Daphne Shahid MD CHEMISTRY ORDERABLES Performing Organization Address City/State/[place] [address] (ABNORMAL) BLOOD GAS 2 ARTERIAL (07/07/2017 4:05 PM EST) Analysis Performed At Patho logist Time Signature pH Art 7.36 7.35 - [facility] 7.45 [facility] LABORATORY pCO2 Art 40 35 - 45 [facility] LABORATORY pO2 Art 282 (H) 85 - 104 [facility] LABORATORY HCO3 Art 22.1 20.0 - [facility] 26.0 [facility] mmol/L [facility] BE Art -3.4 (L) -3.0 - 3.0 [facility] mmol/L [facility] LABORATORY Hgb Blood Gas 10.2 (L) 13.7 - [facility] 16.5 gm/dL [facility] LABORATORY O2HB Art 98.4 (H) 94.0 - [facility] 97.0 % [facility] LABORATORY COHB Art 0.3 % [...] [facility] Comment: Noted by electrical/instrument technician. [...] City/State/[place] [address] (ABNORMAL) BLOOD GAS 2 ARTERIAL (07/07/2017 2:29 PM EST) Analysis Performed At Patho logist Time Signature pH Art 7.43 7.35 - [facility] 7.45 [facility] LABORATORY pCO2 Art 36 35 - 45 [facility] LABORATORY pO2 Art 221 (H) 85 - 104 [facility] LABORATORY HCO3 Art 23.2 20.0 - [facility] 26.0 [facility] mmol/L [facility] BE Art -1.2 -3.0 - 3.0 [facility] mmol/L [facility] LABORATORY Hgb Blood Gas 13.9 13.7 - [facility] 16.5 gm/dL [facility] LABORATORY O2HB Art 97.8 (H) 94.0 - [facility] 97.0 % [facility] LABORATORY COHB Art 1.1 % [...] Shahid MD CHEMISTRY ORDERABLES Performing Organization Address City/[facility] [place] [address] Prepare Coag Factors (Non-Hemophilia) (07/07/2017 1:25 PM EST) P athologist Signature Dispensed? Yes [facility] LABORATORY Specimen Anatomical Collection Method Collection Time Receive d Time (Source) Location / / Volume Laterality Blood specimen 07/07/2017 1:25 PM 017 1:21 (specimen) EST PM EST Daphne Shahid MD BLOOD BANK ORDERABLES Performing Organization Address City/[facility]/[place] [address] Prepare RBC (07/07/2017 1:10 PM EST) P athologist Signature Dispensed? Yes [facility] LABORATORY Specimen Anatomical Collection Method Collection Time Receive d Time (Source) Location / / Volume Laterality Blood specimen 07/07/2017 1:10 PM 017 1:05 (specimen) EST PM EST Daphne Shahid MD BLOOD BANK ORDERABLES Performing Organization Address City/[facility]/[place] [address] POCT Glucose (07/07/2017 11:56 AM EST) athologist Signature POC Glucose 188 65 - 199 [facility] mg/dL [facility] LABORATORY [...] Address City/State/ZIP Code Phon e Number [address] POCT Glucose (07/07/2017 11:05 AM EST) athologist Signature POC Glucose 168 65 - 199 [facility] mg/dL [facility] [...] Address City/State/[place] [address] POCT Glucose (07/07/2017 10:02 AM EST) athologist Signature POC Glucose 191 65 - 199 [facility] mg/dL [facility] [...] Address City/State/[place] [address] POCT Glucose (07/07/2017 7:53 AM EST) athologist Signature POC Glucose 178 65 - 199 [facility] mg/dL [facility] [...] Address City/State/[place] [address] POCT Glucose (07/07/2017 7:03 AM EST) athologist Signature POC Glucose 188 65 - 199 [facility] mg/dL [facility] [...] Address City/State/[place] [address] (ABNORMAL) POCT Glucose (07/07/2017 6:17 AM EST) athologist Signature POC Glucose 207 (H) 65 - 199 [facility] mg/dL [facility] [...] Address City/State/[place] [address] Differential, Automated (07/07/2017 5:15 AM EST) P athologist Signature Neutrophils % 69.7 % [facility] LABORATORY Neutr Abs (ANC) 5.32 1.70 - [facility] 6.10 [facility] x10(3)/[facility] LABORATORY Lymphocytes % 16.3 % [facility] LABORATORY Lymphocytes Abs 1.2 0.9 - 3.2 [facility] x10(3)/[facility] LABORATORY Monocytes % 10.5 % [facility] LABORATORY Monocyte Abs 0.8 0.3 - 0.9 [facility] x10(3)/[facility] LABORATORY Eosinophils % 2.5 % [facility] LABORATORY Eosinophils Abs 0.2 0.0 - 0.4 [facility] CENTER x10(3)/[facility] LABORATORY Basophils % 0.7 % [facility] LABORATORY Basophils Abs 0.0 0.0 - 0.1 [facility] x10(3)/[facility] LABORATORY Immature Gran % 0.30 [...] Abs 0.02 0.00 - 0.04 x10(3)/[facility] LABORATORY Specimen Anatomical Collection Method Collection Time Receive d Time (Source) Location / / Volume Laterality Blood specimen 07/07/2017 5:15 AM 017 5:34 (specimen) EST AM EST Resulting Agency Comment Spec In Lab Daphne Shahid MD HEMATOLOGY ORDERABLES Performing Organization Address City/State/[place] [address] (ABNORMAL) Hemogram (07/07/2017 5:15 AM EST) Analysis Performed At Patho logist Time Signature WBC 7.6 4.0 - 9.5 [facility] x10(3)/[facility] LABORATORY RBC 4.82 4.58 - [facility] 5.54 [facility] x10(6[facility] LABORATORY Hemoglobin 14.4 13.7 - [facility] 16.[facility] gm/dL [facility] LABORATORY Hematocrit 42.1 40.5 - [facility] 48.5 % [facility] LABORATORY MCV 87.3 82.9 - [facility] 93.1 [facility] LABORATORY MCH 29.9 27.5 - [facility] 32.1 pg [facility] LABORATORY MCHC 34.2 32.0 - [facility] 35.7 gm/dL [facility] LABORATORY Platelets 188 145 - 357 [facility] x10(3)/[facility] LABORATORY RDWSD 45.1 (H) 36.0 - [facility] 45.0 [facility] LABORATORY RDWCV 14.3 (H) 11.4 - [facility] 13.8 % [facility] LABORATORY MPV 9.4 7.6 - 12.9 [facility] LABORATORY nRBC % Auto 0.0 % [facility] LABORATORY nRBC Abs Auto 0.000 0.000 - [facility] 0.000 [facility] x10(3)/[facility] LABORATORY Specimen Anatomical Collection Method Collection Time Receive d Time (Source) Location / / Volume Laterality Blood specimen 07/07/2017 5:15 AM 017 5:34 (specimen) EST AM EST Resulting Agency Comment Spec In Lab Daphne Shahid MD HEMATOLOGY ORDERABLES Performing Organization Address City/State/[place] [address] (ABNORMAL) APTT (07/07/2017 5:15 [...] Address City/State/ZIP Code Phon e Number [address] Magnesium (07/07/2017 5:15 AM EST) athologist Signature Magnesium 0.94 0.69 - 1.07 [facility] mmol/L [facility] LABORATORY Specimen Anatomical Collection Method Collection Time Receive d Time (Source) Location / / Volume Laterality Blood specimen 07/07/2017 5:15 AM 017 5:34 (specimen) EST AM EST Resulting Agency Comment Spec In Lab Daphne Shahid MD CHEMISTRY ORDERABLES Performing Organization Address City/[facility] Code Phon e Number [address] (ABNORMAL) Basic Metabolic Panel (non-fasting) (07/07/2017 5:15 AM EST) athologist Signature Glucose Lvl 203 (H) 65 - 199 [facility] mg/dL [facility] LABORATORY [...] or in patients with acute kidney failure. [email or web address] [email or web address] Specimen Anatomical Collection Method Collection Time Receive d Time (Source) Location / / Volume Laterality Blood specimen 07/07/2017 5:15 AM 017 5:34 (specimen) EST AM EST Resulting Agency Comment Spec In Lab Daphne Shahid MD CHEMISTRY ORDERABLES Performing Organization Address City/State/[place] [address] (ABNORMAL) Cardiac Enzymes (LEB/CGP) (07/07/2017 5:15 AM EST) P athologist Signature Troponin-T 2.07 (H) 0.00 [facility] ng/mL [facility] LABORATORY Comment: The 99th percentile [...] additional sample may be indicated. Reference: Third [place] Definition of Myocardial Infarction. Journal of the [place] [employer] 2012;60:1581-98 CK, Total 88 0 - 200 unit/L [facility] LABORATORY Specimen Anatomical Collection Method Collection Time Receive d Time (Source) Location / / Volume Laterality Blood specimen 07/07/2017 5:15 AM 017 5:34 (specimen) EST AM EST Resulting Agency Comment Spec In Lab Daphne Shahid MD CHEMISTRY ORDERABLES Performing Organization Address City/State/ZIP Code Phon e Number [address] POCT Glucose (07/07/2017 5:01 AM EST) athologist Signature POC Glucose 182 65 - 199 [facility] mg/dL [facility] LABORATORY [...] Address City/State/ZIP Code Phon e Number [address] POCT Glucose (07/07/2017 4:08 AM EST) athologist Signature POC Glucose 199 65 - 199 [facility] mg/dL [facility] LABORATORY [...] Address City/State/ZIP Code Phon e Number [address] POCT Glucose (07/07/2017 3:03 AM EST) athologist Signature POC Glucose 188 65 - 199 [facility] mg/dL [facility] LABORATORY Comment: Supplemental ranges: <140 mg/dL before meals <180 mg/dL all other times of the day Specimen Anatomical Collection Method Collection Time Receive d Time (Source) Location / / Volume Laterality Blood specimen 07/07/2017 3:03 AM 017 3:03 (specimen) EST AM EST Daphne Shahid MD POINT OF CARE TEST ORDERABLE S Performing Organization Address City/[facility]/[place] [address] (ABNORMAL) POCT Glucose (07/07/2017 2:08 AM EST) athologist Signature POC Glucose 200 (H) 65 - 199 [facility] mg/dL [facility] LABORATORY Comment: Supplemental ranges: <140 mg/dL before meals <180 mg/dL all other times of the day Specimen Anatomical Collection Method Collection Time Receive d Time (Source) Location / / Volume Laterality Blood specimen 07/07/2017 2:08 AM 017 2:08 (specimen) EST AM EST Daphne Shahid MD POINT OF CARE TEST ORDERABLE S Performing Organization Address City/[facility]/[place] [address] (ABNORMAL) POCT Glucose (07/07/2017 1:31 AM EST) athologist Signature POC Glucose 209 (H) 65 - 199 [facility] mg/dL [facility] LABORATORY Comment: Supplemental ranges: <140 mg/dL before meals <180 mg/dL all other times of the day Specimen Anatomical Collection Method Collection Time Receive d Time (Source) Location / / Volume Laterality Blood specimen 07/07/2017 1:31 AM 017 1:31 (specimen) EST AM EST Daphne Shahid MD POINT OF CARE TEST ORDERABLE S Performing Organization Address City/[facility]/[place] [address] XR Chest [place] or [...] Glucose 161 65 - 199 [facility] mg/dL [facility] LABORATORY [...] City/State/[place] [address] (ABNORMAL) APTT (07/07/2017 12:00 [...] Address City/State/ZIP Code Phon e Number [address] POCT Glucose (07/06/2017 9:55 PM EST) athologist Signature POC Glucose 109 65 - 199 [facility] mg/dL [facility] LABORATORY Comment: Supplemental ranges: <140 mg/dL before meals <180 mg/dL all other times of the day Specimen Anatomical Collection Method Collection Time Receive d Time (Source) Location / / Volume Laterality Blood specimen 07/06/2017 9:55 PM 017 9:55 (specimen) EST PM EST Daphne Shahid MD POINT OF CARE TEST ORDERABLE S Performing Organization Address City/[facility]/ZIP Code Phon e Number [address] POCT Glucose (07/06/2017 9:04 PM EST) athologist Signature POC Glucose 120 65 - 199 [facility] mg/dL [facility] LABORATORY Comment: Supplemental ranges: <140 mg/dL before meals <180 mg/dL all other times of the day Specimen Anatomical Collection Method Collection Time Receive d Time (Source) Location / / Volume Laterality Blood specimen 07/06/2017 9:04 PM 017 9:04 (specimen) EST PM EST Daphne hSahid MD POINT OF CARE TEST ORDERABLE S Performing Organization Address City/[facility]/ZIP Code Phon e Number [address] POCT Glucose (07/06/2017 7:45 PM EST) athologist Signature POC Glucose 158 65 - 199 [place] [facility] mg/dL [facility] LABORATORY Comment: Supplemental ranges: <140 mg/dL before meals <180 mg/dL all other times of the day Specimen Anatomical Collection Method Collection Time Receive d Time (Source) Location / / Volume Laterality Blood specimen 07/06/2017 7:45 PM 017 7:45 (specimen) EST PM EST Daphne Shahid MD POINT OF CARE TEST ORDERABLE S Performing Organization Address City/[facility]/[place] [address] Potassium (07/06/2017 7:40 PM EST) athologist Signature Potassium 3.9 3.5 - 5.0 [facility] mmol/L [facility] LABORATORY Comment: Please note: ??Patients [...] Shahid MD CHEMISTRY ORDERABLES Performing Organization Address City/[facility]/[place] [address] (ABNORMAL) Cardiac Enzymes (LEB/CGP) (07/06/2017 7:40 PM EST) athologist Signature Troponin-T 2.27 (H) 0.00 - [facility] 0.00 ng/mL [facility] LABORATORY Comment: The 99th percentile [...] additional sample may be indicated. Reference: Third [place] Definition of Myocardial Infarction. Journal of the [place] [employer] 2012;60:1581-98 CK, Total 93 0 - 200 unit/L [facility] LABORATORY Specimen Anatomical Collection Method Collection Time Receive d Time (Source) Location / / Volume Laterality Blood specimen 07/06/2017 7:40 PM 017 7:52 (specimen) EST PM EST Resulting Agency Comment Spec In Lab Daphne Shahid MD CHEMISTRY ORDERABLES Performing Organization Address City/[facility]/[place] [address] (ABNORMAL) POCT Glucose (07/06/2017 7:13 PM EST) P athologist Signature POC Glucose 200 (H) 65 - 199 [facility] mg/dL [facility] LABORATORY Comment: Supplemental ranges: <140 mg/dL before meals <180 mg/dL all other times of the day Specimen Anatomical Collection Method Collection Time Receive d Time (Source) Location / / Volume Laterality Blood specimen 07/06/2017 7:13 PM 017 7:13 (specimen) EST PM EST Daphne Shahid MD POINT OF CARE TEST ORDERABLE S Performing Organization Address City/[facility]/[place] [address] (ABNORMAL) APTT (07/06/2017 6:15 [...] Shahid MD HEMATOLOGY ORDERABLES Performing Organization Address City/[facility]/[place] [address] (ABNORMAL) POCT Glucose (07/06/2017 6:03 PM EST) athologist Signature POC Glucose 236 (H) 65 - 199 [facility] mg/dL [facility] LABORATORY Comment: Supplemental ranges: <140 mg/dL before meals <180 mg/dL all other times of the day Specimen Anatomical Collection Method Collection Time Receive d Time (Source) Location / / Volume Laterality Blood specimen 07/06/2017 6:03 PM 017 6:03 (specimen) EST PM EST Daphne Shahid MD POINT OF CARE TEST ORDERABLE S Performing Organization Address City/[facility]/[place] [address] (ABNORMAL) POCT Glucose (07/06/2017 5:01 PM EST) athologist Signature POC Glucose 235 (H) 65 - 199 [place] [facility] mg/dL [facility] LABORATORY Comment: Supplemental ranges: <140 mg/dL before meals <180 mg/dL all other times of the day Specimen Anatomical Collection Method Collection Time Receive d Time (Source) Location / / Volume Laterality Blood specimen 07/06/2017 5:01 PM 017 5:01 (specimen) EST PM EST Daphne Shahid MD POINT OF CARE TEST ORDERABLE S Performing Organization Address City/[facility]/[place] [address] (ABNORMAL) POCT Glucose (07/06/2017 4:06 PM EST) athologist Signature POC Glucose 202 (H) 65 - 199 [facility] mg/dL [facility] [...] Address City/State/ZIP Code Phon e Number [address] POCT Glucose (07/06/2017 2:59 PM EST) athologist Signature POC Glucose 178 65 - 199 [facility] mg/dL [facility] LABORATORY Comment: Supplemental ranges: <140 mg/dL before meals <180 mg/dL all other times of the day Specimen Anatomical Collection Method Collection Time Receive d Time (Source) Location / / Volume Laterality Blood specimen 07/06/2017 2:59 PM 017 2:59 (specimen) EST PM EST Daphne Shahid MD POINT OF CARE TEST ORDERABLE S Performing Organization Address City/[facility]/[place] [address] (ABNORMAL) Cardiac Enzymes (LEB/CGP) (07/06/2017 2:10 PM EST) athologist Signature Troponin-T 2.34 (H) 0.00 - [facility] 0.[facility] ng/mL [facility] LABORATORY Comment: The 99th percentile [...] additional sample may be indicated. Reference: Third [place] Definition of Myocardial Infarction. Journal of the [place] [employer] 2012;60:1581-98 CK, Total 101 0 - 200 unit/L [facility] LABORATORY Specimen Anatomical Collection Method Collection Time Receive d Time (Source) Location / / Volume Laterality Blood specimen 07/06/2017 2:10 PM 017 2:26 (specimen) EST PM EST Resulting Agency Comment Spec In Lab Daphne Shahid MD CHEMISTRY ORDERABLES Performing Organization Address [facility] Phon e Number [address] POCT Glucose (07/06/2017 2:08 PM EST) P athologist Signature POC Glucose 192 65 - 199 [facility] mg/dL [facility] LABORATORY Comment: Supplemental ranges: <140 mg/dL before meals <180 mg/dL all other times of the day Specimen Anatomical Collection Method Collection Time Receive d Time (Source) Location / / Volume Laterality Blood specimen 07/06/2017 2:08 PM 017 2:08 (specimen) EST PM EST Daphne Shahid MD POINT OF CARE TEST ORDERABLE S Performing Organization Address City/[facility]/[place] [address] POCT Glucose (07/06/2017 1:04 PM EST) P athologist Signature POC Glucose 162 65 - 199 [facility] mg/dL [facility] LABORATORY Comment: Supplemental ranges: <140 mg/dL before meals <180 mg/dL all other times of the day Specimen Anatomical Collection Method Collection Time Receive d Time (Source) Location / / Volume Laterality Blood specimen 07/06/2017 1:04 PM 017 1:04 (specimen) EST PM EST Daphne Shahid MD POINT OF CARE TEST ORDERABLE S Performing Organization Address City/[facility]/[place] [address] POCT Glucose (07/06/2017 12:05 PM EST) P athologist Signature POC Glucose 196 65 - 199 [facility] mg/dL [facility] LABORATORY Comment: Supplemental ranges: <140 mg/dL before meals <180 mg/dL all other times of the day Specimen Anatomical Collection Method Collection Time Receive d Time (Source) Location / / Volume Laterality Blood specimen 07/06/2017 12:05 7 (specimen) PM EST 12:05 PM EST Daphne Shahid MD POINT OF CARE TEST ORDERABLE S Performing Organization Address City/[facility]/ZIP Code Phon e Number [address] EKG 12 Lead (07/06/2017 12:00 PM EST) Component Value Ref Range Test Analysis Performed Pathologis t Method Time At Signature Ventricular rate 91 BPM MUSE SYSTEM Atrial Rate 91 BPM MUSE SYSTEM P-R Interval 140 ms MUSE SYSTEM QRS Duration 94 ms MUSE SYSTEM Q-T Interval 394 ms MUSE SYSTEM QTC Calculated 484 ms MUSE SYSTEM (Bezet) Calculated P [place] 36 degrees MUSE SYSTEM Calculated R [place] -19 degrees MUSE SYSTEM Calculated T [place] 104 degrees MUSE SYSTEM INTERPRETATION Normal sinus rhythm MUSE SYSTEM 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) ST & T wave abnormality, consider lateral ischemia Abnormal ECG When compared with ECG of 05-JUL-2017 20:39, No significant change was found Confirmed by MD Luci, Taurus Braun ([id number]) on 07/06/2017 5:07:33 PM Specimen Anatomical Collection [...] MD BLOOD BANK ORDERABLES Performing Organization Address City/[facility]/[place] [address] Antibody screen (07/06/2017 12:00 PM EST) Patholo gist Method Time Signature Ab Screen Negative [facility] LABORATORY Expires at 07/09/2017 [facility] [id number] on: [facility] LABORATORY Specimen Anatomical Collection Method Collection Time Receive d Time (Source) Location / / Volume Laterality Blood specimen 07/06/2017 12:00 7 (specimen) PM EST 12:24 PM EST Resulting Agency Comment Spec In Lab Daphne Shahid MD BLOOD BANK ORDERABLES Performing Organization Address City/[facility]/[place] [address] ABO/Rh Typing (07/06/2017 12:00 PM EST) P athologist Signature ABORh Type O Pos [facility] LABORATORY Specimen Anatomical Collection Method Collection Time Receive d Time (Source) Location / / Volume Laterality Blood specimen 07/06/2017 12:00 7 (specimen) PM EST 12:24 PM EST Resulting Agency Comment Spec In Lab Daphne Shahid MD BLOOD BANK ORDERABLES Performing Organization Address City/[facility]/[place] [address] Prothrombin Time (07/06/2017 11:24 [...] Shahid MD HEMATOLOGY ORDERABLES Performing Organization Address City/[facility]/ZIP Code Phon e Number [address] (ABNORMAL) APTT (07/06/2017 11:24 [...] Shahid MD HEMATOLOGY ORDERABLES Performing Organization Address City/[facility]/[place] [address] POCT Glucose (07/06/2017 11:02 AM EST) P athologist Signature POC Glucose 187 65 - 199 [facility] mg/dL [facility] LABORATORY Comment: Supplemental ranges: <140 mg/dL before meals <180 mg/dL all other times of the day Specimen Anatomical Collection Method Collection Time Receive d Time (Source) Location / / Volume Laterality Blood specimen 07/06/2017 11:02 7 (specimen) AM EST 11:02 AM EST Daphne Shahid MD POINT OF CARE TEST ORDERABLE S Performing Organization Address City/[facility]/[place] [address] POCT Glucose (07/06/2017 10:18 AM EST) P athologist Signature POC Glucose 193 65 - 199 [facility] mg/dL [facility] LABORATORY [...] Address City/State/[place] [address] POCT Glucose (07/06/2017 9:25 AM EST) athologist Signature POC Glucose 182 65 - 199 [facility] mg/dL [facility] LABORATORY [...] Address City/State/[place] [address] (ABNORMAL) Cardiac Enzymes (LEB/CGP) (07/06/2017 8:10 AM EST) athologist [employer] Troponin-T 2.26 (H) 0.00 - [place] [facility] 0.00 ng/mL [facility] LABORATORY Comment: The 99th percentile [...] additional sample may be indicated. Reference: Third [place] Definition of Myocardial Infarction. Journal of the [place] [employer] 2012;60:1581-98 CK, Total 124 0 - 200 unit/L [facility] LABORATORY Specimen Anatomical Collection Method Collection Time Receive d Time (Source) Location / / Volume Laterality Blood specimen 07/06/2017 8:10 AM 017 8:23 (specimen) EST AM EST Resulting Agency Comment Spec In Lab Daphne Shahid MD CHEMISTRY ORDERABLES Performing Organization Address City/[facility]/ZIP Code Phon e Number [address] Magnesium (07/06/2017 8:10 AM EST) P athologist Signature Magnesium 0.84 0.69 - 1.07 [facility] mmol/L [facility] LABORATORY Specimen Anatomical Collection Method Collection Time Receive d Time (Source) Location / / Volume Laterality Blood specimen 07/06/2017 8:10 AM 017 8:21 (specimen) EST AM EST Resulting Agency Comment Spec In Lab Daphne Shahid MD CHEMISTRY ORDERABLES Performing Organization Address City/[facility] [place] [place] [address] (ABNORMAL) Basic Metabolic Panel (non-fasting) (07/06/2017 8:10 AM EST) P athologist Signature Glucose Lvl 199 65 - 199 [facility] mg/dL [facility] LABORATORY [...] or in patients with acute kidney failure. [email or web address] [email or web address] Specimen Anatomical Collection Method Collection Time Receive d Time (Source) Location / / Volume Laterality Blood specimen 07/06/2017 8:10 AM 017 8:21 (specimen) EST AM EST Resulting Agency Comment Spec In Lab Daphne Shahid MD CHEMISTRY ORDERABLES Performing Organization Address City/[facility]/[place] [address] POCT Glucose (07/06/2017 7:34 AM EST) P athologist Signature POC Glucose 198 65 - 199 [facility] mg/dL [facility] LABORATORY Comment: Supplemental ranges: <140 mg/dL before meals <180 mg/dL all other times of the day Specimen Anatomical Collection Method Collection Time Receive d Time (Source) Location / / Volume Laterality Blood specimen 07/06/2017 7:34 AM 017 7:34 (specimen) EST AM EST Daphne Shahid MD POINT OF CARE TEST ORDERABLE S Performing Organization Address City/[facility]/[place] [address] POCT Glucose (07/06/2017 7:03 AM EST) P athologist Signature POC Glucose 181 65 - 199 [place] mg/dL [facility] [...] Address City/State/ZIP Code Phon e Number [address] XR Chest [place] or [...] Signature POC Glucose 172 65 - 199 [facility] mg/dL [facility] LABORATORY [...] Address City/State/[place] [address] POCT Glucose (07/06/2017 5:08 AM EST) athologist Signature POC Glucose 154 65 - 199 [facility] mg/dL [facility] LABORATORY [...] Address City/State/[place] [address] POCT Glucose (07/06/2017 4:05 AM EST) athologist Signature POC Glucose 142 65 - 199 [facility] [facility] mg/dL [facility] LABORATORY Comment: Supplemental ranges: <140 mg/dL before meals <180 mg/dL all other times of the day Specimen Anatomical Collection Method Collection Time Receive d Time (Source) Location / / Volume Laterality Blood specimen 07/06/2017 4:05 AM 017 4:05 (specimen) EST AM EST Daphne Shahid MD POINT OF CARE TEST ORDERABLE S Performing Organization Address City/[facility]/ZIP Code Phon e Number [address] POCT Glucose (07/06/2017 3:00 AM EST) athologist [facility] POC Glucose 116 65 - 199 [facility] mg/dL [facility] LABORATORY Comment: Supplemental ranges: <140 mg/dL before meals <180 mg/dL all other times of the day Specimen Anatomical Collection Method Collection Time Receive d Time (Source) Location / / Volume Laterality Blood specimen 07/06/2017 3:00 AM 017 3:00 (specimen) EST AM EST Daphne Shahid MD POINT OF CARE TEST ORDERABLE S Performing Organization Address City/[facility]/ZIP Code Phon e Number [address] Potassium (07/06/2017 2:20 AM EST) athologist [facility] Potassium 3.9 3.5 - 5.0 [facility] mmol/L [facility] LABORATORY Comment: Please note: ??Patients [...] Shahid MD CHEMISTRY ORDERABLES Performing Organization Address City/[facility]/ZIP Code Phon e Number [address] Differential, Automated (07/06/2017 2:20 AM EST) athologist [facility] Neutrophils % 72.9 % [facility] LABORATORY Neutr Abs (ANC) 5.53 1.70 - [facility] 6.10 [facility] x10(3)/[facility] LABORATORY Lymphocytes % 16.4 % [facility] LABORAT[facility] Lymphocytes Abs 1.2 0.9 - 3.2 [facility] x10(3)/[facility] LABORATORY Monocytes % 9.4 % [facility] Monocyte Abs 0.7 0.3 - 0.9 [facility] x10(3)/[facility] LABORATORY Eosinophils % 0.5 % [facility] Eosinophils Abs 0.0 0.0 - 0.4 [facility] x10(3)/[facility] LABORATORY Basophils % 0.4 % [facility] Basophils Abs 0.0 0.0 - 0.1 [facility] x10(3)/[facility] LABORATORY Immature Gran % 0.40 [...] x10(3)/[facility] MAR Y [facility] LABORATORY Specimen Anatomical Collection Method Collection Time Receive d Time (Source) Location / / Volume Laterality Blood specimen 07/06/2017 2:20 AM 017 2:33 (specimen) EST AM EST Resulting Agency Comment Spec In Lab Daphne Shahid MD HEMATOLOGY ORDERABLES Performing Organization Address City/State/[place] [address] (ABNORMAL) Hemogram (07/06/2017 2:20 AM EST) Analysis Performed At Patho logist Time Signature WBC 7.6 4.0 - 9.5 [facility] x10(3)/[facility] LABORATORY RBC 4.52 (L) 4.58 - [facility] 5.54 [facility] x10(6)/[facility] LABORATORY Hemoglobin 13.4 (L) 13.7 - [facility] 16.5 gm/dL [facility] LABORATORY Hematocrit 39.7 (L) 40.5 - [place] [facility] 48.5 % [facility] LABORATORY MCV 87.8 82.9 - [facility] 93.1 [facility] LABORATORY MCH 29.6 27.5 - [place] [facility] 32.1 pg [facility] LABORATORY MCHC 33.8 32.0 - [place] 35.7 gm/dL [facility] LABORATORY Platelets 189 145 - 357 [facility] x10(3)/[facility] LABORATORY RDWSD 45.6 (H) 36.0 - [facility] 45.0 [facility] LABORATORY RDWCV 14.3 (H) 11.4 - [facility] 13.8 % [facility] LABORATORY MPV 9.1 7.6 - 12.9 [facility] LABORATORY nRBC % Auto 0.0 % [facility]AT[facility] nRBC Abs Auto 0.000 0.000 - [facility] 0.000 [facility] x10(3)/[facility] LABORATORY Specimen Anatomical Collection Method Collection Time Receive d Time (Source) Location / / Volume Laterality Blood specimen 07/06/2017 2:20 AM 017 2:33 (specimen) EST AM EST Resulting Agency Comment Spec In Lab Daphne Shahid MD HEMATOLOGY ORDERABLES Performing Organization Address City/State/[place] [address] (ABNORMAL) APTT (07/06/2017 2:20 [...] Address City/State/ZIP Code Phon e Number [address] POCT Glucose (07/06/2017 2:20 AM EST) athologist Signature POC Glucose 115 65 - 199 [facility]dL [facility] LABORATORY [...] Address City/State/[place] [address] (ABNORMAL) Cardiac Enzymes (LEB/CGP) (07/06/2017 2:20 AM EST) athologist Signature Troponin-T 2.13 (H) 0.00 - [place] 0.00 ng/mL [facility] LABORATORY Comment: The 99th percentile [...] additional sample may be indicated. Reference: Third [place] Definition of Myocardial Infarction. Journal of the [place] [employer] 2012;60:1581-98 CK, Total 129 0 - 200 unit/L [facility] LABORATORY Specimen Anatomical Collection Method Collection Time Receive d Time (Source) Location / / Volume Laterality Blood specimen 07/06/2017 2:20 AM 017 2:33 (specimen) EST AM EST Resulting Agency Comment Spec In Lab Daphne Shahid MD CHEMISTRY ORDERABLES Performing Organization Address City/State/[place] [address] (ABNORMAL) Hemoglobin A1c (07/06/2017 [...] into estimated average glucose values. ??Diabetes Care 2008:31(8):7789-1923. Specimen Anatomical Collection Method Collection Time Receive d Time (Source) Location / / Volume Laterality Blood specimen 07/06/2017 2:20 AM 017 2:34 (specimen) EST AM EST Resulting Agency Comment Spec In Lab Daphne Shahid MD CHEMISTRY ORDERABLES Performing Organization Address City/State/[place] [address] (ABNORMAL) Lipid Panel (07/06/2017 2:20 AM EST) [facility] Method Time Signature Chol, Total 150 <=239 [place] mg/dL [facility] LABORATORY Triglycerides 129 <=199 [facility] mg/dL [facility] LAB[facility] HDL 32 (L) >=40 [facility] mg/dL [facility] LABOR[facility]ORY LDL Cholesterol 92 <=190 [place] mg/dL [facility] LAB[facility]ORY Chol/HDL Ratio 4.[address] [facility] Lipid See Note [place] Interpretation [facility] LABORATORY Comment: Lipid management should be guided by a p atient? s ASCVD risk, goals and preferences. ACC/AHA Guidelines recommend high intens ity statin if clinical ASCVD or LDL greater than or equal to 190 mg/dL. http://tinyurl.com/JMO-ZRY-Rujqsivon Adults aged 40-75 with LDL 70-189 mg/dL should have their 10 year ASCVD risk estimated with the ACC/AHA ASCVD risk es timator http://tools.acc.org/BPXHB-Ngwj-Emcwifmq r/ Statin should be discussed if risk [...] Shahid MD CHEMISTRY ORDERABLES Performing Organization Address City/[facility]/ZIP Code Phon e Number [address] POCT Glucose (07/06/2017 1:09 AM EST) athologist Signature POC Glucose 121 65 - 199 [facility]/dL [facility] LABORATORY Comment: Supplemental ranges: <140 mg/dL before meals <180 mg/dL all other times of the day Specimen Anatomical Collection Method Collection Time Receive d Time (Source) Location / / Volume Laterality Blood specimen 07/06/2017 1:09 AM 017 1:09 (specimen) EST AM EST Daphne Shahid MD POINT OF CARE TEST ORDERABLE S Performing Organization Address City/[facility]/[place] [address] POCT Glucose (07/06/2017 12:06 AM EST) athologist Signature POC Glucose 147 65 - 199 [facility] mg/dL [facility] [...] Address City/State/[place] [address] (ABNORMAL) POCT Glucose (07/05/2017 10:56 PM EST) athologist Signature POC Glucose 200 (H) 65 - 199 [facility] mg/dL [facility] LABORATORY [...] Address City/State/[place] [address] (ABNORMAL) POCT Glucose (07/05/2017 10:05 PM EST) athologist Signature POC Glucose 225 (H) 65 - 199 [facility] mg/dL [facility] LABORATORY [...] Address City/State/[place] [address] (ABNORMAL) POCT Glucose (07/05/2017 9:02 PM EST) athologist Signature POC Glucose 301 (H) 65 - 199 [facility] mg/dL [facility] LABORATORY [...] Address City/State/[place] [address] XR Chest PA or [...] 474 ms MUSE SYSTEM (Bezet) Calculated P [place] 50 degrees MUSE SYSTEM Calculated R [place] -28 degrees MUSE SYSTEM Calculated T [place] 90 degrees MUSE SYSTEM INTERPRETATION Sinus tachycardia [...] (ANC) 9.08 (H) 1.70 - [facility] 6.10 [facility] x10(3)/[facility] LABORATORY Lymphocytes % 7.0 % [facility] Lymphocytes Abs 0.7 (L) 0.9 - 3.2 [facility] x10(3)/[facility] LABORATORY Monocytes % 3.7 % [facility]OR[facility]ORY Monocyte Abs 0.4 0.3 - 0.9 [facility] x10(3)/[facility] LABORATORY Eosinophils % 0.1 % [facility] Eosinophils Abs 0.0 0.0 - 0.4 [facility] x10(3)/[facility] LABORATORY Basophils % 0.2 % [facility] Basophils Abs 0.0 0.0 - 0.1 [facility] x10(3)/[facility] LABORATORY Immature Gran % 0.60 % ST. [...] City/State/[place] [address] (ABNORMAL) Hemogram (07/05/2017 8:20 PM EST) Analysis Performed At Patho logist Time Signature WBC 10.3 (H) 4.0 - 9.5 [facility] x10(3)/[facility] LABORATORY RBC 4.64 4.58 - [place] 5.54 [facility] x10(6)/[facility] LABORATORY Hemoglobin 14.1 13.7 - [place] 16.5 gm/dL [facility] LABORATORY Hematocrit 40.8 40.5 - [facility] 48.5 % [facility] LABORATORY MCV 87.9 82.9 - [facility] 93.1 [facility] LABORATORY MCH 30.4 27.5 - [place] 32.1 pg [facility] LABORATORY MCHC 34.6 32.0 - [facility] 35.7 gm/dL [facility] LABORATORY Platelets 204 145 - 357 [facility] x10(3)/[facility] LABORATORY RDWSD 46.1 (H) 36.0 - [facility] 45.0 [facility] LABORATORY RDWCV 14.5 (H) 11.4 - [facility] 13.8 % [facility] LABORATORY MPV 9.7 7.6 - 12.9 [facility] nRBC % Auto 0.0 % [facility] nRBC Abs Auto 0.000 0.000 - [facility] 0.000 [facility] x10(3)/[facility] LABORATORY Specimen Anatomical Collection Method Collection Time Receive d Time (Source) Location / / Volume Laterality Blood specimen 07/05/2017 8:20 PM 017 8:27 (specimen) EST PM EST Resulting Agency Comment Spec In Lab Daphne Shahid MD HEMATOLOGY ORDERABLES Performing Organization Address City/State/ZIP Code Phon e Number [place] [address] APTT (07/05/2017 8:20 PM [...] Address City/State/[place] [address] (ABNORMAL) Cardiac Enzymes (LEB/CGP) (07/05/2017 8:20 PM EST) athologist [facility] Troponin-T 2.11 (H) 0.00 - [facility] 0.00 ng/mL [facility] LABORATORY Comment: The 99th percentile [...] additional sample may be indicated. Reference: Third [place] Definition of Myocardial Infarction. Journal of the [place] [employer] 2012;60:1581-98 CK, Total 149 0 - 200 unit/L [facility] LABORATORY Specimen Anatomical Collection Method Collection Time Receive d Time (Source) Location / / Volume Laterality Blood specimen 07/05/2017 8:20 PM 017 8:27 (specimen) EST PM EST Resulting Agency Comment Spec In Lab Daphne Shahid MD CHEMISTRY ORDERABLES Performing Organization Address City/[facility]/ZIP [facility] [place] [address] (ABNORMAL) Magnesium (07/05/2017 8:20 PM EST) P athologist Signature Magnesium 0.68 (L) 0.69 - 1.07 [facility] mmol/L [facility] LABORATORY Specimen Anatomical Collection Method Collection Time Receive d Time (Source) Location / / Volume Laterality Blood specimen 07/05/2017 8:20 PM 017 8:27 (specimen) EST PM EST Resulting Agency Comment Spec In Lab Daphne Shahid MD CHEMISTRY ORDERABLES Performing Organization Address City/[facility]/[place] [address] (ABNORMAL) Basic Metabolic Panel (non-fasting) (07/05/2017 8:20 PM EST) P athologist Signature Glucose Lvl 321 (H) 65 - 199 [facility] mg/dL [facility] LABORATORY [...] or in patients with acute kidney failure. http://Sococo/DHnkdep http://Sococo/DHMCnkf Specimen Anatomical Collection Method Collection Time Receive d Time (Source) Location / / Volume Laterality Blood specimen 07/05/2017 8:20 PM 017 8:27 (specimen) EST PM EST Resulting Agency Comment Spec In Lab Daphne Shahid MD CHEMISTRY ORDERABLES Performing Organization Address City/State/[place] [address] (ABNORMAL) POCT Glucose (07/05/2017 7:32 PM EST) P athologist Signature POC Glucose 296 (H) 65 - 199 [facility] mg/dL [facility] LABORATORY [...] Address City/State/[place] [address] CARDIAC CATHETERIZATION (07/05/2017 6:47 PM EST) Anatomical Region Laterality Modality Other Specimen (Source) Anatomical Location Collection Method / Collectio n Time Received Time / Laterality Volume Narrative 07/05/2017 7:27 PM EST ?[facility] ? Cardiac Cathete rization/Intervention Report ? Patient Name: Gregory Hoang ? Procedure Date: 07/05/2017 ? A #: [id number] ? Primary Physician: Clarisa, Jet T ? Case #: [id number] ? File Name: [id number] ? Catheterization Order Number: [id number] ? [facility] ? Final Report [place], [place] ? Patient Name: ? Gregory Natalya ?ID#: ?[id number] ? : ?1945 ? Procedure Date: ? [...] presented with: non -STEMI (w/i 7 days). [place] ?Cardiovascular Society angina c lass was IV. 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 ? Jet Mckenna M.D. ? Electronically Signed by: Jet bunch M.D. ? Report Finalized: 07/05/2017 ??19:23 ? Report Last Ammended: 10/26/2017 ??10:29 ? Procedure Note Jet Mckenna MD - 10/26/2017Formatt ing of this note might be different from the original. [facility] Cardiac Catheterization/Intervention Re port Patient Name: Gregory Hoang Procedure Date: 07/05/2017 A #: [id number] Primary Physician: Jet Mckenna Case #: [id number] File Name: [id number] Catheterization Order Number: [id number] [facility] Final Report [place], [place] Patient Name: Gregory Hoang ID#: [id number] : 1945 Procedure Date: July 05, [...] presented with: non-STEMI ( w/i 7 days). [place] [employer]ovascular [employer] angina class was IV. 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 Jet Mckenna M.D. Electronically Signed by: Jet [...] Mccollum ? (Age): 1945(72y) Med Rec#: ? [id number] ?Sex: ?M ? Site Loc: ? [facility] ?Ht / Wt: ??173(cm)/86(kg) Pt. Loc: ?CCU ? BSA: ?2 Study Date: ?? 07/05/2017 ?Pt. Type: Inpatient Tape: ? Referring: Daphne Shahid ([id number]) Referring: MANDA ALCANTAR Reading: Blade Preston ([id number]) Business Transformation Consultant: Dayami Paula BA, [facility] [...] E-wave Vmax ?0.8 ?m/sec ? MV deceleration [id number] ?msec ? MV A-wave Vmax ?0.8 ?m/sec [...] ? Mid-Inferior ?Akinetic ? Mid-Inferoseptal ?Hypokinetic ? [place]-Septal ? Akinetic ? [place]-Anterior ? Hypokinetic ? [place]-Lateral ?Hypokinetic ? [place]-Inferior ? Akinetic ? [place]-Tip ?Akinetic ? This report has been electronically sign ed by: _ Blade Preston MD ? 07/06/2017 08 :53:15 Images reviewed and interpretation [facility] Cardiac Ultrasound Laboratory Procedure Note Blade Preston MD - 07/06/2017Formatt ing of this note might be different from the original. Procedure: Transthoracic Echocardiogram Patient: NATALYA MCBRIDE(Age): [birth year]72y) Med Rec#: [id number] Sex: M Site Loc: [facility] Ht / Wt: 173(cm)/86(kg) Pt. Loc: CCU BSA: 2 Study Date: 07/05/2017 Pt. Type: Inpatie nt Tape: Referring: Daphne Shahid ([id number]) Referring: MANDA ALCANTAR Reading: Blade Preston ([id number]) Business Transformation Consultant: Dayami Paula BA, [facility] [...] MV E-wave Vmax 0.8 m/sec MV deceleration [id number] msec MV A-wave Vmax 0.8 m/sec MV [...] Hypokinetic Mid-Posterolateral Hypokinetic Mid-Inferior Akinetic Mid-Inferoseptal Hypokinetic [place]-Septal Akinetic [place]-Anterior Hypokinetic [place]-Lateral Hypokinetic [place]-Inferior Akinetic [place]-Tip Akinetic This report has been electronically sign ed by: _ Blade Preston MD 07/06/2017 08:53:15 Images reviewed and interpretation ver ied [facility] Cardiac Ultrasound Laboratory Daphne Shahid MD ECHO ORDERABLES Differential, Automated (07/05/2017 4:55 PM EST) athologist Signature Neutrophils % 77.0 % [facility] Neutr Abs (ANC) 5.26 1.70 - [facility] 6.10 [facility] x10(3)/[facility] LABORATORY Lymphocytes % 13.3 % [facility] Lymphocytes Abs 0.9 0.9 - 3.2 [facility] x10(3)/[facility] LABORATORY Monocytes % 8.2 % [facility] Monocyte Abs 0.6 0.3 - 0.9 [facility] x10(3)/[facility] LABORATORY Eosinophils % 0.7 % [facility] Eosinophils Abs 0.0 0.0 - 0.4 [facility] x10(3)/[facility] LABORATORY Basophils % 0.4 % [facility] Basophils Abs 0.0 0.0 - 0.1 [facility] x10(3)/[facility] LABORATORY Immature Gran % 0.40 [...] x10(3)/[facility] MAR Y [facility] LABORATORY Specimen Anatomical Collection Method Collection Time Receive d Time (Source) Location / / Volume Laterality Blood specimen 07/05/2017 4:55 PM 017 5:24 (specimen) EST PM EST Resulting Agency Comment Spec In Lab Daphne Shahid MD HEMATOLOGY ORDERABLES Performing Organization Address City/State/[place] [address] (ABNORMAL) Hemogram (07/05/2017 4:55 PM EST) Analysis Performed At Patho logist Time Signature WBC 6.8 4.0 - 9.5 [facility] x10(3)/[facility] LABORATORY RBC 4.67 4.58 - [facility] 5.54 [facility] x10(6)/[facility] LABORATORY Hemoglobin 14.0 13.7 - [facility] 16.5 gm/dL [facility] LABORATORY Hematocrit 41.0 40.5 - [place] [facility] 48.5 % [facility] LABORATORY MCV 87.8 82.9 - [facility] 93.1 [facility] LABORATORY MCH 30.0 27.5 - [place] [facility] 32.1 pg [facility] LABORATORY MCHC 34.1 32.0 - [place] [facility] 35.7 gm/dL [facility] LABORATORY Platelets 197 145 - 357 [facility] x10(3)/[facility] LABORATORY RDWSD 46.4 (H) 36.0 - [place] [facility] 45.0 [facility] LABORATORY RDWCV 14.5 (H) 11.4 - [place] 13.8 % [facility] LABORATORY MPV 9.7 7.6 - 12.9 [facility] LABORATORY nRBC % Auto 0.0 % [facility]AT[facility] nRBC Abs Auto 0.000 0.000 - [place] 0.000 [facility] x10(3)/[facility] LABORATORY Specimen Anatomical Collection Method Collection Time Receive d Time (Source) Location / / Volume Laterality Blood specimen 07/05/2017 4:55 PM 017 5:24 (specimen) EST PM EST Resulting Agency Comment Spec In Lab Daphne Shahid MD HEMATOLOGY ORDERABLES Performing Organization Address City/State/[place] [address] (ABNORMAL) Cardiac Enzymes (LEB/CGP) (07/05/2017 4:55 PM EST) P athologist Signature Troponin-T 1.69 (H) 0.00 - [place] 0.00 ng/mL [facility] LABORATORY Comment: The 99th percentile [...] additional sample may be indicated. Reference: Third [place] Definition of Myocardial Infarction. Journal of the [place] [employer] 2012;60:1581-98 CK, Total 191 0 - 200 unit/L [facility] LAB[facility]ATORY Specimen Anatomical Collection Method Collection Time Receive d Time (Source) Location / / Volume Laterality Blood specimen 07/05/2017 4:55 PM 017 5:56 (specimen) EST PM EST Resulting Agency Comment Spec In Lab Daphne Shahid MD CHEMISTRY ORDERABLES Performing Organization Address City/[facility]/[place] [address] (ABNORMAL) pro-Brain Natriuretic Peptide (07/05/2017 4:55 PM EST) P athologist Signature ProBNP 1,598 (H) <=125 [facility] pg/mL [facility] LABORATORY Specimen Anatomical Collection Method Collection Time Receive d Time (Source) Location / / Volume Laterality Blood specimen 07/05/2017 4:55 PM 017 5:24 (specimen) EST PM EST Resulting Agency Comment Spec In Lab Daphne Shahid MD CHEMISTRY ORDERABLES Performing Organization Address City/State/[place] [address] Magnesium (07/05/2017 4:55 PM EST) P athologist Signature Magnesium 0.78 0.69 - 1.07 [facility] mmol/L [facility] LABORATORY Specimen Anatomical Collection Method Collection Time Receive d Time (Source) Location / / Volume Laterality Blood specimen 07/05/2017 4:55 PM 017 5:24 (specimen) EST PM EST Resulting Agency Comment Spec In Lab Daphne Shahid MD CHEMISTRY ORDERABLES Performing Organization Address City/State/[place] [address] (ABNORMAL) Basic Metabolic Panel (non-fasting) (07/05/2017 4:55 PM EST) P athologist Signature Glucose Lvl 230 (H) 65 - 199 [facility] mg/dL [facility] LABORATORY [...] or in patients with acute kidney failure. http://Omnisens.Critique^It/DHnkdep http://Omnisens.Critique^It/DHMCnkf Specimen Anatomical Collection Method Collection Time Receive d Time (Source) Location / / Volume Laterality Blood specimen 07/05/2017 4:55 PM 017 5:24 (specimen) EST PM EST Resulting Agency Comment Spec In Lab Daphne Shahid MD CHEMISTRY ORDERABLES Performing Organization Address City/[facility]/[place] [address] (ABNORMAL) APTT (07/05/2017 4:55 [...] Shahid MD HEMATOLOGY ORDERABLES Performing Organization Address City/[facility]/[place] [address] (ABNORMAL) POCT Glucose (07/05/2017 4:53 PM EST) athologist Signature POC Glucose 208 (H) 65 - 199 [facility] mg/dL [facility] LABORATORY Comment: Supplemental ranges: <140 mg/dL before meals <180 mg/dL all other times of the day Specimen Anatomical Collection Method Collection Time Receive d Time (Source) Location / / Volume Laterality Blood specimen 07/05/2017 4:53 PM 017 4:53 (specimen) EST PM EST Daphne Shahid MD POINT OF CARE TEST ORDERABLE S Performing Organization Address City/[facility]/[place] [address] EKG 12 Lead (07/05/2017 4:32 PM EST) Component Value Ref Range Test Analysis Performed Pathologis t Method Time At Signature Ventricular rate 97 BPM MUSE SYSTEM Atrial Rate 97 BPM MUSE SYSTEM P-R Interval 148 ms MUSE SYSTEM QRS Duration 96 ms MUSE SYSTEM Q-T Interval 364 ms MUSE SYSTEM QTC Calculated 462 ms MUSE SYSTEM (Bezet) Calculated P [place] 48 degrees MUSE SYSTEM Calculated R [place] -33 degrees MUSE SYSTEM Calculated T [place] 98 degrees MUSE SYSTEM INTERPRETATION Normal sinus [...] atherosclerosis of unspecified type of vessel, red devil or graft Cardiomyopathy, ischemic Other specified forms [...] post-op day 1 in the AM Give [place] if unable to take PO, Routine Given [...] dose on Wed07/07/17 at 2100, Until Discontinued, [place] teeth, Routine Given 07/08/2017 10:06 PM EST [...] or norepinephrine is ineffective. Call pager # [phone] if initiated. Rate/Dose Change 07/08/2017 7:01 PM [...] if phenyleprine and/or vasopressin ineffective.Call pager # [phone] if initiated., Routine Rate/Dose Change 07/09/2017 1:24 [...] L/min/M2. Maximum volume 2 L. Call house mover for additional fluid orders: pager #[phone]. Rate/Dose Verify 07/08/2017 4:00 AM EST 100 [...] 1) 0821 (Gi cody - Provider: More Luthre RN) 0841 (Given - Provider: Em Jones [...] post-op day 1 in the AM Give [place] if unable to take PO, Routine atorvastatin [...] mg (COMPLETED) 1003 (Give n - Provider: Mroe Luther RN) 20 mg, Oral, ONCE, 1 [...] triplett RN)1200 (Not Given - Provider: Myrna Yonug RN - Reason: Patient/family refused) 0-10 Units, [...] post-op day 1 in the AM Give [place] if unable to take PO
Routine Group [...]
Routine documented in this encounter Care Teams Coffee Break Attendant Relationship Specialty Start Date End Date Lovely Vicente MD PCP - General 04/16/[address] [place] [address] [address] [facility] [address] [place] [address] documented as of this encounter
--- OUTSIDE RECORDS SUMMARY | 2022-05-11 08:49 | XMS_ITS | Encounter Summary ---
:1945 Author Organization [facility] [place] [address] Care Team Providers Name Role Phone Lovely Vicente MD Primary Care Provider Encounter Details Date Type Department Care Team Description 07/08/2017 Orders Only [facility] [place] [address] Social History Tobacco Use Types Packs/Day [...] Description 05/28/2022 Appointment Cardiology Zulma Dolna MD [facility] [place] [address] (Wo rk) 05/28/2022 Laboratory Appointment Lab 05/28/2022 Office Visit Cardiology Zulma Dolan MD [facility] [place] [address] Liz Poole PA [facility] [place] [address] 06/10/2022 Office Visit Dermatology Laura Scherer MD [facility] ER [address] [address] (Wo rk) documented as of this encounter [...] Mccollum ? (Age): 1945(72y) Med Rec#: ? [id number] ?Sex: ?M ? Site Loc: ? Ht / Wt: ??(cm)/ (kg) ? Pt. Loc: ? Study Date: ?? 07/07/2017 ?Pt. Type: Tape: ? Referring: Yuan Retana Reading: Yifan Perez MD ([id number]) Performing: Yifan Perez MD ([id number]) Diagnosis: SUMMARY: 1. Intraoperative AVELINO performed at the [facility] of Dr. Mike for the [...] ? Mid-Inferior ?Hypokinetic ? Mid-Inferoseptal ?Hypokinetic ? [place]-Septal ? Hypokinetic ? [place]-Anterior ? Hypokinetic ? [place]-Lateral ?Hypokinetic ? [place]-Inferior ? Hypokinetic ? [place]-Tip ?Not Seen ? This report has been electronically sign ed by: _ Yifan Perez MD ? 07/08/2017 12 :25:18 Images reviewed and interpretation verif ied [facility] Cardiac Ultrasound Laboratory Procedure Note Yifan Perez MD - 07/08/2017Formatt ing of this note might be different from the original. Procedure: Transesophageal Echocardiogra m Patient: NATALYA MCBRIDE(Age): [birth year]72y) Med Rec#: [id number] Sex: M Site Loc: Ht / Wt: (cm)/ (kg) Pt. Loc: Study Date: 07/07/2017 Pt. Type: Tape: Referring: Yuan Retana Reading: Yifan Perez MD ([id number]) Performing: Yifan Perez MD ([id number]) Diagnosis: SUMMARY: 1. [facility] diagnosis [...] Hypokinetic Mid-Posterolateral Hypokinetic Mid-Inferior Hypokinetic Mid-Inferoseptal Hypokinetic [place]-Septal Hypokinetic [place]-Anterior Hypokinetic [place]-Lateral Hypokinetic [place]-Inferior Hypokinetic [place]-Tip Not Seen This report has been electronically sign ed by: _ Yifan Perez MD 07/08/2017 12:25:18 Images reviewed and interpretation elvie hwang [facility] Cardiac Ultrasound Laboratory Unknown ECHO ORDERABLES documented in this encounter Visit Diagnoses Not on filedocumented in this encounter Care Teams Junior Sales Representative Relationship Specialty Start Date End Date Lovely Vicente MD PCP - General 04/16/[address] [place] [address] documented as of this encounter
--- OUTSIDE RECORDS SUMMARY | 2022-05-11 08:50 | XMS_ITS | Encounter Summary ---
:1945 Author Organization [facility] Address [facility] [place] [address] Care Team Providers Name Role Phone Lovely Vicente MD Primary Care Provider Reason for Visit Auth/Cert Specialty Diagnoses / Procedures Referred By Contact Refer red To Contact Diagnoses STEMI (ST elevation myocardial infarction) NSTEMI STEMI Procedures CARDIAC CATHETERIZATION NAYE IPI Referral ID Status Reason Start Date Expiration Date Visits Requ ested Visits Authorized [id number] 1 1 Encounter Details Date Type Department Care Team Description 07/07/2017 Surgery Main Operating Room Yuan Webber, @ CABG, USING ARTERIAL Barbara Ocampo MD GRAFT;SINGLE ARTERIAL Hospital [facility] GRAFT (WRVU 33.75) [facility] DR Siddiqu[place] [address] SURGERY [phone] [place], [place] [address] (Wo rk) Social History Tobacco [...] in this encounter Discharge Summaries Martha Teague, TESTER REGULATOR - 07/14/2017 9:38 AM EST Inpatient - Discharge Summary Patient Name: Gregory Hoang Patient Age: 72 y.o. Birthdate: 1945 Language: Montserratian Race: White Ethnicity: Not nor Admit Date: [...] , @ 1:20p Patient to follow-up with Final Expense Agent/heart failure team in one week. An appointment will be made for you. You may call [phone] Patient to follow-up with Cardiac Surgery, Dr. Yuan Webber, in ~ 4 weeks with CXR, EKG. Inpatient Provider Contact Information: [facility] of Cardiac Surgery [facility] [phone] FAX [phone] Discharge Diagnoses (Hospital Problems) Primary Diagnoses: CAD [...] 33.75) performed by Yuan Webber MD at [facility] OR ??? PRO CABG, ARTERY-VEIN, TWO N/A 07/07/2017 @CABG, TWO VENOUS GRAFTS & ARTERIAL GRAFT (WRVU 7.93) performed by Yuan Webber MD at [facility] OR ??? PRO COLONOSCOPY, REMV LESN, SNARE 01/16/2014 COLONOSCOPY, POLYPECTOMY, REMOVAL LESION BY SNARE performed by Nohemi Jaimes MD at [facility] ENDOSCOPY ??? PRO ENDOSCOPY W/VIDEO-ASST VEIN HARVEST, CABG Right 07/07/2017 ENDOSCOPIC HARVEST VEIN(S) FOR CABG (WRVU 0.31) performed by Yuan Webber MD at [facility] OR ??? PRO THYROIDECTOMY 03/28/2013 THYROIDECTOMY, TOTAL OR COMPLETE performed by Manny Mcknight MD at [facility] OR Prior To Admission Medications Prescriptions Prior to Admission Medication Sig Dispense Refill Last Dose ??? levothyroxine (SYNTHROID) 175 mcg Tablet Take 1 tablet by mouth daily. 90 tablet 3 07/05/2017 [id number] ??? ascorbic acid, vitamin C, (VITAMIN C) [...] Gregory Hoang was admitted to [facility] on 07/05/2017 via the Cardiology Service. [...] not take or discontinue any prescription or gpct-gfj-cdivmfe medications without asking your doctor or pharmacist [...] Webber and/or the Cardiac Surgery Physician Hospital Personnel Director Team may be reached at . Weight: [...] Dr. Yuan Webber. You may use a [place] Track or treadmill but avoid any pulling [...] with the surgeon. Do not ride motorcycles, AGILE customer insight's tractors or horses. Avoid the use of [...] should resume a low fat, low cholesterol, [place] Heart Association Diet/Diabetic diet. Driving: No driving [...] , @ 1:20p Patient to follow-up with Final Expense Agent/heart failure team in one week. Appointment will be made for you. You may call [phone] Patient to follow-up with Cardiac Surgery, Dr. Yuan Webber, in ~ 4 weeks with CXR, EKG. Cardiac Rehabilitation: Gregory Hoang was seen today regarding participation in the outpatient Phase 2 Cardiac Rehabilitation at [facility]. The patient agrees to a referral to this program. The referral will be sent at discharge and the patient should be contacted by the Program within 1- 2 weeks from discharge. ?? Future Appointments and Orders Future Appointments Provider Department Dept Phone 09/07/2017 3:00 PM LAB, THREE L Lab 3L [facility] [phone] 09/07/2017 4:00 PM Luz Prescott MD Endocrinology at [place] [phone] Future Orders Complete By Expires EKG 12 Lead [EKG1 Custom] 08/14/2017 02/13/2018 Process Instructions: Scheduling Instructions: Questions: Which DH location will this be performed?: [place] Is a rhythm strip needed?: No If EKG Reason is Pre-op Evaluation, indicate diagnosis for surgery.: XR Chest PA & Lateral (Generic) [60180 [id number] Custom] 08/14/2017 02/13/2018 Process Instructions: Scheduling Instructions: Questions: Where will study be performed?: [place] [facility] Portable exam?: Reason for exam and clinical history: CABG x 3 Other pertinent information: Stat read required?: Date of injury if applicable: Requested Time: Referral to Cardiac Rehab [[id number] Custom] As directed Process Instructions: If no progress note charted, please enter Clinical details in comments. Scheduling Instructions: Questions: My question or request is: s/p CABG. Cardiac rehab at [facility] Referral to Home Health - at DISCHARGE [WVC7456 CPT(R)] As directed Process Instructions: Scheduling Instructions: Comments: DOCUMENTATION FOR VNA SERVICES (INCLUDING THOSE PATIENTS WITH MEDICARE COVERAGE REQUIRING HOME VNA SERVICES AND/OR HOSPICE SERVICES) PATIENT'S LOCATION: Gregory Hoang [address] [place] [address] [place] [phone] (home) Telephone Information: Insole And Outsole Splitter's Name: self In discussion with the attending physician, it is certified that this patient is under their care and that they, or a Nurse Practitioner, or Physician Hospital Personnel Director who is working directly with them, [...] [employer] ([employer] [place] [employer]-is in [place]) PHONE: [phone] FAX: [phone] RN orders: Cardiopulmonary assessment, incisional assessment, assess vital signs, assessment of rehab progress, medication management and effectiveness, home safety evaluation. Please draw INR if indicated and send result to:Dr Vicente [phone] PT ORDERS: Continue rehab for endurance, gait stability and strength with mobility and transfers. Home safety evaluation. Home exercise program if appropriate. Start of Care Date:24-48 hours after discharge SPECIAL INSTRUCTIONS: For any follow up questions, needs, or issues please call the Cardiac Surgery Office at [phone] FOR MEDICARE ONLY: (please delete this section [...] Questions: Agency name and contact information: [facility] Patient location post discharge: home What services are requested: Registered Nurse Physical Therapy Start date: Responsible MD post discharge contact info: PCP Arrangements for VNA/home care: As above. VN RN OR PCP TO PLEASE REMOVE CHEST TUBE SUTURES ON OR AFTER 07/17/2017 Signed: Martha Teague APRN [facility] of Cardiac Surgery [facility] [address] FAX [phone] Date: 07/14/2017 CC: MD Ivania Cr Betsy, PA [address] [place] [phone] documented in this encounter Discharge Instructions Discharge [...] not take or discontinue any prescription or xzee-rgs-jdtgdlh medications without asking your doctor or pharmacist [...] Webber and/or the Cardiac Surgery Physician Hospital Personnel Director Team may be reached at . ?? [...] Dr. Yuan Webber. You may use a [place] Track or treadmill but avoid any pulling [...] with the surgeon. Do not ride motorcycles, AGILE customer insight's tractors or horses. Avoid the use of [...] should resume a low fat, low cholesterol, [place] Heart Association Diet/Diabetic diet. ?? Driving: No [...] @ 1:20p ?? Patient to follow-up with Final Expense Agent/heart failure team in one week. An appointment has been made for you, you can call [phone] ?? Patient to follow-up with Cardiac Surgery, Dr. Yuan Webber, in ~ 4 weeks with CXR, EKG. ? Cardiac Rehabilitation: Gregory Hoang??was seen today regarding participation in the outpatient Phase 2 Cardiac Rehabilitation at [facility]. ?? The patient agrees to a referral to this program.? The referral will be sent at discharge and the patient should be contacted by the Program within 1- 2 weeks from discharge. ? Future Appointments and Orders Future Appointments Provider Department Dept Phone ?? 09/07/2017 3:00 PM LAB, THREE L Lab 3L [facility] [phone] ?? 09/07/2017 4:00 PM Luz Prescott MD Endocrinology at [place] [phone] Future Orders Complete By Expires ?? EKG 12 Lead [EKG1 Custom] 08/14/2017 02/13/2018 ?? Process Instructions: ? Scheduling Instructions: ? Questions: ? Which location will this be performed?: [place] ?? Is a rhythm strip needed?: No ?? If EKG Reason is Pre-op Evaluation, indicate diagnosis for surgery.: ?? XR Chest PA & Lateral (Generic) [[id number] Custom] 08/14/2017 02/13/2018 ?? Process Instructions: ? Scheduling Instructions: ? Questions: ? Where will study be performed?: [place] [facility] ?? Portable exam?: ?? Reason for exam and clinical history: CABG x 3 ?? Other pertinent information: ?? Stat read required?: ?? Date of injury if applicable: ?? Requested Time: ?? Referral to Cardiac Rehab [[id number] Custom] As directed ? Process Instructions: ?? If no progress note charted, please enter Clinical details in comments. ?? Scheduling Instructions: ? Questions: ? My question or request is: s/p CABG. Cardiac rehab at [facility] ? Arrangements for VNA/home care: [...] referrals are placed. Patient requests referral to [facility]. PHONE: [phone] FAX: [phone] Expected date of discharge: 07/14 Referral routed to the Skein Inspector for matching with agency/vendor and to [facility] Management Pager [phone] 20 minutes of this 35 minute visit [...] [employer] ([employer]-is in [place]) PHONE: [phone] FAX: [phone]. Expected date of discharge: 07/14/17 Referral routed to the Skein Inspector for matching with agency/vendor and to [...] hours. If BG remains greater than 240, [id number] units (no more than three times) &??call [...] [facility] Diabetes Management Pager [phone] 15 minutes of this 25 minute visit [...] of infiltration/extravasation Discussed plan of care with LINING STITCHER and RN. Elevate exrtemity and apply intermittent Warm compresses. Name of MD contacted Dr. Shaw Brown 07/13/2017 @ 0673 Name of RN contacted Ale Rangel RN Name of Pharmacist if consulted NA Name of Plastics MD ( if consulted) NA (Mandatory photo for infiltrations/ extravasations scoring a stage 2 or greater, but recommended forstage 1)( include measuring tape and identifier in the photo) HALFWAY HOUSE COUNSELOR CARING FOR THIS PATIENT WILL CONTINUE TO [...] measuring tape and identifier in the photo) HALFWAY HOUSE COUNSELOR CARING FOR THIS PATIENT WILL CONTINUE TO [...] regard to both infiltrates addressed by this show card writer.All of MrMadiha Hoang's responses were entirely appropriate. Images of infiltrates attached here. L Martha Teague, TESTER REGULATOR - 07/13/2017 8:01 AM EST Cardiac Surgery Progress Note: ID: [id number] 72 year old male POD#6 s/p CABGx3 [...] Office of Care Management letter from the Quality Assurance Advisor pertaining to rehab referrals. I have also provided a letter describing our affiliations within the [facility] and educated them about their [...] date of discharge: 07/14 Note routed to Skein Inspector who will communicate referrals to facilities [...] hours. If BG remains greater than 240, [id number] units (no more than three times) & call for new basal insulin orders. ??If less than 240 after two hours, give no insulin and resume prior schedule. Will continue to follow Katerin Azul APRN [facility] Endocrinology Diabetes Management Pager [phone] 20 minutes [...] AM EST Cardiac Surgery Progress Note: ID: [id number] 72 year old male POD#5 s/p CABGx3 [...] 7:18 PM EST Patient arrived from [facility]. VSS. MSI dressing pulled off [...] AM EST Cardiac Surgery Progress Note: ID: [id number] 72 year old male POD#4 s/p CABGx3 [...] AM EST Cardiac Surgery Progress Note: ID: [id number] 72 year old male POD#3 s/p CABGx3 [...] Gas) No results found for: PHART, PO2ART, BVB5WTN Assessment/Plan: 72 year old male POD#3 s/p [...] Mami Thao - 07/09/2017 6:29 PM EST Optics Engineer Encounter Note Patient Name: Gregory Hoang : [id number] MR#: [id number] Admit Date: 07/05/2017 4:20 PM Hospital Day 4 days Narrative: Patient was sitting in chair, hugging heart pillow, opened his eyes, nodding to come into room Assessment: Patient was sleepy. Intervention and Outcome: Introduced shredded filler cutter operator services and patient reached his hand out in appreciation. Follow-up: Optics Engineer remains available for support. Time in [...] 10:45 AM EST Report given to staff radiation therapist to cover care Maddison Cee PA - 07/09/2017 9:00 AM EST Cardiac Surgery Progress Note: ID: [id number] 72 year old male POD#2 s/p CABGx3 [...] completed shifts: In: 7977.4 [I.V.:7477.4; Other:500] Out: 2235 [Urine:3000; Other:615] I- 4 L O- 2.7 [...] on rounds. Signed: STEPHANIE Iqbal [facility] Section of Cardiac Surgery Date: 07/09/2017 [...] when IABP d/c'ed. Gretchen Carolina, PT Pager [phone] Maddison Cee PA - 07/08/2017 11:27 AM EST Cardiac Surgery Progress Note: ID: [id number] 72 year old male POD#1 s/p CABGx3 [...] on rounds. Signed: STEPHANIE Iqbal [facility] Section of Cardiac Surgery Date: 07/08/2017 [...] place in R femoral. No hematoma. SENIOR NET ARCHITECT- Intact Psych- Anxious Skin- Dry, no [...] IABP in place in R femoral. SENIOR NET ARCHITECT- Intact Psych- Anxious Skin- Dry, no [...] note for details. DAPHNE SHAHID MD Pager [phone] Jet Mckenna MD - 07/05/2017 6:48 PM EST Preliminary Cardiac Catheterization Procedure Note: Procedure(s) performed: Left heart cath, IABP insertion Access: Right RAW MATERIAL PLANNER-->8fr IABP A time-out was conducted prior to [...] Shahid MD PCP: Lovely Vicente MD PCP#: [phone] Patient Active Problem List Diagnosis Code ??? [...] with heparin drip and transferred to [facility]. While there, continued sob, question of chest pain. Stat TTE showing WMA diffusely and EF around 20%. No significant valvular disease. Taken to the irrigation laborer urgently for ongoing STEMI. [facility] Labs: INR 1.0 WBC 5.88 [...] Medicine, PGY-2 Cardiology S1, Team Pager # [phone] CARDIOLOGY ATTENDING NOTE Patient: Gregory Hoang Date [...] amenable for PCI. DAPHNE SHAHID MD Pager [phone] documented in this encounter Miscellaneous Notes Consult Note - Daphne Shahid MD - 07/14/2017 11:46 AM EST Heart Failure Service Inpatient Consult Note Gregory Hoang Date of : 1945 Age: 72 y.o. Today's date: 07/14/17 PCP: Lovely Vicente MD ENDO TECH: None Place of Service: C451-A Reason for [...] 33.75) performed by Yuan Webber MD at [facility] OR ??? PRO CABG, ARTERY-VEIN, TWO N/A 07/07/2017 @CABG, TWO VENOUS GRAFTS & ARTERIAL GRAFT (WRVU 7.93) performed by Yuan Webber MD at [facility] OR ??? PRO COLONOSCOPY, REMV LESN, SNARE 01/16/2014 COLONOSCOPY, POLYPECTOMY, REMOVAL LESION BY SNARE performed by Nohemi Jaimes MD at [facility] ENDOSCOPY ??? PRO ENDOSCOPY W/VIDEO-ASST VEIN HARVEST, CABG Right 07/07/2017 ENDOSCOPIC HARVEST VEIN(S) FOR CABG (WRVU 0.31) performed by Yuan Webber MD at [facility] OR ??? PRO THYROIDECTOMY 03/28/2013 THYROIDECTOMY, TOTAL OR COMPLETE performed by Manny Mcknight MD at [facility] OR Outpt Meds: Current Outpatient Prescriptions [...] following studies: EKG 07/14/17: NSR 75 bpm, MEDIA CENTER SPECIALIST anterior infarct, LAD CXR 07/11/17: FINDINGS: Sternotomy wires. The patient has been extubated, left chest tube removed, and [place]-Suzi catheter removed since the 07/07/2017 study. Atelectasis [...] discussed with Zehra. Jaden Kelley MD Senior Storage Engineer Pager [phone] CARDIOLOGY ATTENDING NOTE Patient: Gregory Hoang Date [...] heart failure clinic. DAPHNE SHAHID MD Pager [phone] Plan of Care - Alden Chavarria, HAND TUBE BENDER - 07/14/2017 11:35 AM EST Problem: Patient [...] Discharge Disposition: home with assist Alden Chavarria, HAND TUBE BENDER Pager: [phone] Inpatient Physical Therapy Problem: Acute Rehab Services [...] sit/sit to supine -- Bed Mobility Goal, [place] Level supervision required -- Bed Mobility Goal, [...] - 3 days -- Gait Training Goal, [place] Level supervision required -- Gait Training Goal, [...] days -- Transfer Training Goal, Activity Type xft-wx-nachw/srayh-kg-hpx;ftj-dj-hiujd/zlcfz-qr-xlw;toilet -- Transfer Train Goal, [place] Level supervision required -- Transfer Training Goal, [...] keeping present for 2 days per family. Utility Arborist noted of frustrations, house keeping sent to room. Patient offered showered twice, refused. at bedside, frustrated that shower not complete, informed that patient had refused several times. requesting to see TOWER FOREMAN, paged sent to Martha, will come to bedside (middle of consult). not willing to wait, Martha notified that family had gone home. Encouraged to come for morning rounds a t 8am. Diabetes team at bedside - insulin adjustments made. Call cabello in reach. Continue to monitor. PLAN MOVING FORWARD: Ambulate, dressing changes BID, Please change drsg at 4am per Martha TOWER FOREMAN request. INDIVIDUALIZED FALL PREVENTION INTERVENTIONS: Patient-specific fall [...] levels on the lower side, 60ml of [place] juice given after a FS of 80. [...] monitoring required during toileting and ADLs]: RN LINING STITCHER Surveillance [continuous indirect monitoring]: Barrett Monitor CPG [...] Anticipated Discharge Disposition: home with assist Pager: [phone] CLARISSA SEGAL, PT 07/12/2017 Physical Therapy Rehabilitation [...] to sit/sit to supine Bed Mobility Goal, [place] Level supervision required Bed Mobility Goal, Additional Goal adheres to psternal precautions for transfer Goal: Gait Training Goal Stand Alone Therapy Goal Outcome: Ongoing (Interventions Implemented as Appropriate) 07/12/17 1225 Gait Training Goal Gait Training Goal, Date Established 07/12/17 Gait Training Goal, Time to Achieve 2 - 3 days Gait Training Goal, [place] Level supervision required Gait Training Goal, Assist [...] 3 days Transfer Training Goal, Activity Type cin-pn-gayos/wqimb-gz-pfm;pvo-om-dtpde/ykcfq-xu-qso;toilet Transfer Train Goal, [place] Level supervision required Transfer Training Goal, Additional Goal adheres to sternal precautions during transfer Consult Note - Octavia Vaughn RN - 07/12/2017 10:50 AM EST [facility] CARDIAC REHABILITATION Gregory Hoang was seen today regarding participation in the outpatient Phase 2 Cardiac Rehabilitation at [facility]. The patient agrees to a [...] IV site, amio to other piv and PRIMARY SCHOOL TEACHER at bedside to help assess, IV [...] staff, he stood and marched in place. [place] weak, wanting to sit back down. Remained [...] Health/Prescription Coverage: Primary Insurance: MEDICARE Secondary Insurance: [employer] Prescription Coverage: yes Preferred Pharmacy: [facility] [place] Other: none Primary Care Provider: Lovely Vicente MD [phone] Patient/Caregiver Goals of Treatment:live and get my breath back Potential Needs for Transition of Care: Rehab/SNF: [facility] Home Health: DME: TBD Dialysis: na Community Resources: available Transportation: yes Other: none Anticipated Barriers to Discharge/Special Considerations: none Plan: Likely SNF Rehab before home A member of the Care Management team will continue to monitor progress, follow for continuity of care and assist with transition of care planning. ERLIN Weiss Pager: [phone] Consult Note - Katerin Azul RN - [...] to d/c gtt and start CF. intermediate accountant diabetes care: Medications - Outpatient treatment regimen recommendations pending based on the hospital course. Monitoring - continue BG tid ac & hs Diet - low fat/low carb diet Exercise - weight-bearing exercise 30 min/day, as tolerated Thank you for allowing us to provide care for your patient W/E coverage, Dr. Jeane Tatum, pager [phone] Katerin Azul APRN Endocrinology Diabetes Management Pager [phone] Plan of Care - Stephanie Godoy RN [...] Operative Note Patient Name: Gregory Hoang : [id number] MR#: [id number] Case Date: 07/07/2017 Surgeon: Surgeon(s) and Role: * Yuan Webber MD - Primary * Michael Drake PA - Physician Hospital Personnel Director * Linda Flores PA - Physician Hospital Personnel Director Preoperative diagnosis: 3VD Postoperative diagnosis: CAD, severe [...] Operative Note Patient Name: Gregory Hoang : [id number] MR#: [id number] Case Date: 07/07/2017 Surgeon: Surgeon(s) and Role: * Yuan Webber MD - Primary * Michael Drake PA - Physician Hospital Personnel Director * Linda Flores PA - Physician Hospital Personnel Director Preoperative diagnosis: 3VD Postoperative diagnosis: CAD, severe [...] code status: Full Code Katty Hahn, MS3 [facility] Cardiology S1 (Pager [phone]) Plan of Care - Emelia Ibarra RN [...] with other involved physicians Yuan Webber MD [phone] Med Student Progress Note - Katty Hahn [...] insulin drip - hold metformin - f/u [facility] ?? #Home Meds - continue levothyroxine 175mcg - CPAP at night ?? # Routine - DVT PPx: heparin drip - Diet: Healthy heart diet, NPO at midnight for CABG tomorrow - Code Status: FULL - Dispo: CVCC Katty Hahn, M3 [facility] Cardiology S1 (Pager [phone]) Plan of Care - Stephanie Godoy RN - 07/06/2017 5:00 AM EST Problem: Patient Care Overview Goal: Plan of Care Review 07/06/17 7146 Coping/Psychosocial Plan Of Care Reviewed With patient;family [...] Outcome: Ongoing (Interventions Implemented as Appropriate) 07/06/17 4176 Cardiac: ACS (Acute Coronary Syndrome) Problems Assessed [...] Zulma Dolan MD [facility] [place] [address] (Wo rk) 05/28/2022 Laboratory Appointment Lab 05/28/2022 Office Visit Cardiology Zulma Dolan MD [facility] [place] [address] Liz Poole PA [facility] [place] [address] 06/10/2022 Office Visit Dermatology Laura Scherer MD [facility] [address] [place], [place] [address] (Wo rk) Scheduled Orders Name [...] procedure are i n the results section. LICENSED PSYCHOLOGIST DIRECTOR SCAN 07/15/2017 12:00 Res ults for [...] or this ([facility]) AM EST procedure are i n the [...] Routine 07/06/2017 7:40 Results f or this ([facility] [...] Timed 07/06/2017 2:10 Results f or this ([facility] [...] Routine 07/06/2017 2:20 Results f or this ([facility] [...] or this ([facility]) PM EST procedure are i n the [...] or this ([facility]) PM EST procedure are i n the [...] 2017 EXAMINATION: XR CHEST PA AND LATERAL (TP [employer]) CLINICAL HISTORY: CABG x 3 TECHNIQUE: [...] Teague APRN IMG DX ORDERABLES SCAN DOC: LICENSED PSYCHOLOGIST DIRECTOR (07/15/2017 12:00 AM EST) Narrative 07/15/2017 [...] 186 65 - 199 BARBARA DAVIS mg/dL [facility] LABORATORY [...] City/State/ZIP Code Phon e Number [place] [id number] [facility] [address] POCT Glucose (07/14/2017 7:52 AM EST) athologist Signature POC Glucose 126 65 - 199 [facility] mg/dL [facility] LABORATORY [...] Address City/State/ZIP Code Phon e Number [address] (ABNORMAL) Prothrombin Time (07/14/2017 [...] Address City/State/ZIP Code Phon e Number 25 [address] Potassium (07/14/2017 4:46 AM EST) athologist Signature Potassium 4.3 3.5 - 5.0 [facility] mmol/L [facility] LABORATORY [...] Address City/State/ZIP Code Phon e Number [address] POCT Glucose (07/14/2017 4:34 AM EST) athologist Signature POC Glucose 115 65 - 199 [facility] [place] mg/dL [facility] LABORATORY Comment: Supplemental ranges: <140 mg/dL before meals <180 mg/dL all other times of the day Specimen Anatomical Collection Method Collection Time Receive d Time (Source) Location / / Volume Laterality Blood specimen 07/14/2017 4:34 AM 017 4:34 (specimen) EST AM EST Yuan Webbre MD POINT OF CARE TEST ORDERABLE S Performing Organization Address City/[facility]/ZIP Code Phon e Number [address] POCT Glucose (07/13/2017 11:33 PM EST) athologist Signature POC Glucose 132 65 - 199 [place] mg/dL [facility] LABORATORY [...] City/[facility]/ZIP Code Phon e Number [address] POCT Glucose (07/13/2017 9:25 PM EST) athologist Signature POC Glucose 121 65 - 199 [place] mg/dL [facility] LABORATORY [...] Address City/State/ZIP Code Phon e Number [address] POCT Glucose (07/13/2017 4:55 PM EST) P athologist Signature POC Glucose 79 65 - 199 [facility] [place] mg/dL [facility] LABORATORY [...] Address City/State/ZIP Code Phon e Number [address] POCT Glucose (07/13/2017 11:16 AM EST) P athologist Signature POC Glucose 163 65 - 199 [place] mg/dL [facility] LABORATORY [...] Address City/State/ZIP Code Phon e Number [address] POCT Glucose (07/13/2017 8:07 AM EST) P athologist Signature POC Glucose 96 65 - 199 [place] mg/dL [facility] [...] City/[facility]/ZIP [place] [address] (ABNORMAL) Prothrombin Time (07/13/2017 [...] Wilson APRN HEMATOLOGY ORDERABLES Performing Organization Address City/[facility]/ZIP [place] [address] (ABNORMAL) Basic Metabolic Panel (non-fasting) (07/13/2017 4:26 AM EST) P athologist Signature Glucose Lvl 95 65 - 199 [facility] mg/dL [facility] LABORATORY [...] or in patients with acute kidney failure. [email or web address]://[employer]/DHnkdep [email or web address]/DHMCnkf Specimen Anatomical Collection Method Collection Time Receive d Time (Source) Location / / Volume Laterality Blood specimen 07/13/2017 4:26 AM 017 4:46 (specimen) EST AM EST Resulting Agency Comment Spec In Lab Makayla Wilson APRN CHEMISTRY ORDERABLES Performing Organization Address City/[facility]/ZIP Code Phon e Number [address] POCT Glucose (07/13/2017 3:52 AM EST) P athologist Signature POC Glucose 93 65 - 199 [facility] mg/dL [facility] LABORATORY [...] Organization Address City/State/ZIP [place] [address] POCT Glucose (07/13/2017 12:21 AM EST) athologist Signature POC Glucose 80 65 - 199 [place] mg/dL [facility] LABORATORY [...] Address City/State/ZIP Code Phon e Number [address] POCT Glucose (07/12/2017 8:22 PM EST) athologist Signature POC Glucose 119 65 - 199 [facility] [place] mg/dL [facility] LABORATORY [...] Address City/State/ZIP Code Phon e Number [address] POCT Glucose (07/12/2017 4:02 PM EST) athologist Signature POC Glucose 114 65 - 199 [facility] [place] mg/dL [facility] LABORATORY [...] Organization Address City/State/ZIP [place] [address] POCT Glucose (07/12/2017 11:28 AM EST) athologist Signature POC Glucose 164 65 - 199 [facility] LABORATORY [...] Address City/State/ZIP Code Phon e Number [address] POCT Glucose (07/12/2017 7:34 AM EST) athologist Signature POC Glucose 109 65 - 199 [facility] LABORATORY [...] Organization Address City/State/ZIP [place] [address] (ABNORMAL) Basic Metabolic Panel (non-fasting) (07/12/2017 4:11 AM EST) athologist Signature Glucose Lvl 92 65 - 199 [facility] [place] mg/dL [facility] LABORATORY [...] or in patients with acute kidney failure. [email or web address]://[employer]/DHnkdep [email or web address]://[employer]/DHnkf Specimen Anatomical Collection Method Collection Time Receive d Time (Source) Location / / Volume Laterality Blood specimen 07/12/2017 4:11 AM 017 8:57 (specimen) EST AM EST Resulting Agency Comment Spec In Lab Makayla Katie QUINONES CHEMISTRY ORDERABLES Performing Organization Address City/State/[place] [address] (ABNORMAL) Prothrombin Time (07/12/2017 [...] Wilson APRN HEMATOLOGY ORDERABLES Performing Organization Address City/[facility]/ZIP [place] [address] Potassium (07/12/2017 4:11 AM EST) athologist Signature Potassium 3.8 3.5 - 5.0 [facility] mmol/L [facility] LABORATORY [...] City/[facility]/ZIP [place] [address] POCT Glucose (07/12/2017 4:10 AM EST) athologist Signature POC Glucose 90 65 - 199 [facility] [place] mg/dL [facility] LABORATORY [...] City/[facility]/ZIP [place] [address] POCT Glucose (07/11/2017 11:57 PM EST) athologist Signature POC Glucose 98 65 - 199 [facility] [place] mg/dL [facility] LABORATORY [...] Organization Address City/State/ZIP [place] [address] POCT Glucose (07/11/2017 8:32 PM EST) P athologist Signature POC Glucose 146 65 - 199 [facility] mg/dL [facility] LABORATORY [...] Organization Address City/State/ZIP [place] [address] XR Chest PA & [...] e xtubated, left chest tube removed, and [place]-Suzi catheter removed since the study. Atelectasis at [...] e xtubated, left chest tube removed, and [place]-Suzi catheter removed since the study. Atelectasis at [...] POC Glucose 223 (H) 65 - 199 [facility] LABORATORY [...] City/[facility]/ZIP [place] [address] POCT Glucose (07/11/2017 11:55 AM EST) athologist Signature POC Glucose 176 65 - 199 [place] mg/dL [facility] LABORATORY [...] Organization Address City/State/ZIP [place] [address] POCT Glucose (07/11/2017 7:53 AM EST) athologist Signature POC Glucose 189 65 - 199 [facility] [place] mg/dL [facility] LABORATORY Comment: Supplemental ranges: <140 mg/dL before meals <180 mg/dL all other times of the day Specimen Anatomical Collection Method Collection Time Receive d Time (Source) Location / / Volume Laterality Blood specimen 07/11/2017 7:53 AM 017 7:53 (specimen) EST AM EST Yuan Webber MD POINT OF CARE TEST ORDERABLE S Performing Organization Address City/[facility]/ZIP [facility] Phon e Number [address] POCT Glucose (07/11/2017 4:22 AM EST) athologist Signature POC Glucose 151 65 - 199 [facility] [place] mg/dL [facility] LABORATORY Comment: Supplemental ranges: <140 mg/dL before meals <180 mg/dL all other times of the day Specimen Anatomical Collection Method Collection Time Receive d Time (Source) Location / / Volume Laterality Blood specimen 07/11/2017 4:22 AM 017 4:22 (specimen) EST AM EST Yuan Webber MD POINT OF CARE TEST ORDERABLE S Performing Organization Address City/[facility] Phon e Number [address] Potassium (07/11/2017 2:20 AM EST) athologist Signature Potassium 4.5 3.5 - 5.0 [facility] mmol/L [facility] LABORATORY [...] Address City/State/ZIP Code Phon e Number [address] POCT Glucose (07/11/2017 12:17 AM EST) athologist Signature POC Glucose 162 65 - 199 [place] mg/dL [facility] LABORATORY [...] City/[facility]/ZIP Code Phon e Number [address] POCT Glucose (07/10/2017 8:47 PM EST) athologist Signature POC Glucose 191 65 - 199 [place] mg/dL [facility] LABORATORY [...] [facility]al [facility]/ZIP Code Ph[place] [address] POCT Glucose (07/10/2017 4:06 PM EST) athologist Signature POC Glucose 131 65 - 199 [place] mg/dL [facility] LABORATORY [...] Organization Address City/State/ZIP Code [place] [address] POCT Glucose (07/10/2017 3:08 PM EST) athologist Signature POC Glucose 151 65 - 199 [place] mg/dL [facility] LABORATORY [...] Address City/State/ZIP Code Phon e Number [address] POCT Glucose (07/10/2017 2:25 PM EST) athologist Signature POC Glucose 146 65 - 199 [facility] [place] mg/dL [facility] LABORATORY [...] Address City/State/ZIP Code Phon e Number [address] POCT Glucose (07/10/2017 1:23 PM EST) athologist Signature POC Glucose 166 65 - 199 [place] mg/dL [facility] LABORATORY [...] Organization Address City/State/ZIP [place] [address] POCT Glucose (07/10/2017 11:52 AM EST) P athologist Signature POC Glucose 157 65 - 199 [place] mg/dL [facility] LABORATORY [...] Address City/State/ZIP Code Phon e Number [address] POCT Glucose (07/10/2017 11:01 AM EST) athologist Signature POC Glucose 158 65 - 199 [facility] [place] mg/dL [facility] LABORATORY [...] Address City/State/ZIP Code Phon e Number [address] POCT Glucose (07/10/2017 9:54 AM EST) athologist Signature POC Glucose 160 65 - 199 [place] mg/dL [facility] LABORATORY [...] Organization Address City/State/ZIP [place] [address] POCT Glucose (07/10/2017 8:58 AM EST) athologist Signature POC Glucose 183 65 - 199 [place] mg/dL [facility] LABORATORY [...] Organization Address City/State/ZIP [place] [address] POCT Glucose (07/10/2017 8:01 AM EST) athologist Signature POC Glucose 173 65 - 199 [place] mg/dL [facility] LABORATORY [...] Address City/State/ZIP Code Phon e Number [address] POCT Glucose (07/10/2017 7:05 AM EST) athologist Signature POC Glucose 166 65 - 199 [place] mg/dL [facility] LABORATORY [...] Address City/State/ZIP Code Phon e Number [address] POCT Glucose (07/10/2017 6:00 AM EST) P athologist Signature POC Glucose 162 65 - 199 [facility] mg/dL [facility] LABORATORY [...] Organization Address City/State/[place] [address] (ABNORMAL) Differential, Automated (07/10/2017 4:28 AM EST) Patholo gist Method Time Signature Neutrophils % 87.9 % [facility] LABORATORY Neutr Abs (ANC) 10.70 (H) 1.70 - [facility] 6.10 [facility] x10(3)/[facility] L LABORATORY Lymphocytes % 3.9 % [facility] LABORATORY Lymphocytes Abs 0.5 (L) 0.9 - 3.2 [facility] x10(3)/[facility] LABORATORY Monocytes % 7.0 % [facility] LABORATORY Monocyte Abs 0.8 0.3 - 0.9 [facility] x10(3)/[facility] LABORATORY Eosinophils % 0.3 % [facility] LABORATORY Eosinophils Abs 0.0 0.0 - 0.4 [facility] x10(3)/[facility] LABORATORY Basophils % 0.2 % [facility] LABORATORY Basophils Abs 0.0 0.0 - 0.1 [facility] x10(3)/[facility] LABORATORY Immature Gran % 0.70 % [facility] [...] Organization Address City/State/[place] [address] (ABNORMAL) Hemogram (07/10/2017 4:28 AM EST) Analysis Performed At Patho logist Time Signature WBC 12.2 (H) 4.0 - 9.5 [facility] x10(3)/[facility] LABORATORY RBC 3.31 (L) 4.58 [facility] 5.54 [facility] x10(6)/[facility] LABORATORY Hemoglobin 9.8 (L) 13.7 - [facility] [place] 16.5 gm/dL [facility] LABORATORY Hematocrit 30.0 (L) 40.5 - [facility] [place] 48.5 % [facility] LABORATORY MCV 90.6 82.9 - [facility] 93.1 [facility] LABORATORY MCH 29.6 27.5 - [facility] [place] 32.1 pg [facility] LABORATORY MCHC 32.7 32.0 - [facility] [place] 35.7 gm/dL [facility] LABORATORY Platelets 135 (L) 145 - 357 [facility] x10(3)/[facility] LABORATORY RDWSD 50.8 (H) 36.0 - [facility] [place] 45.0 [facility] LABORATORY RDWCV 15.4 (H) 11.4 - [facility] 13.8 % [facility] LABORATORY MPV 10.0 7.6 - 12.9 [facility] LABORATORY nRBC % Auto 0.0 % [facility] LABORATORY nRBC Abs Auto 0.000 0.000 - [facility] 0.000 [facility] x10(3)/[facility] LABORATORY Specimen Anatomical Collection Method Collection Time Receive d Time (Source) Location / / Volume Laterality Blood specimen 07/10/2017 4:28 AM 017 4:36 (specimen) EST AM EST Resulting Agency Comment Spec In Lab Yuan Webber MD HEMATOLOGY ORDERABLES Performing Organization Address City/[facility]/[place] [address] (ABNORMAL) Basic Metabolic Panel (non-fasting) (07/10/2017 4:28 AM EST) P athologist Signature Glucose Lvl 178 65 - 199 [facility] mg/dL [facility] LABORATORY [...] or in patients with acute kidney failure. [email or web address] [email or web address] Specimen Anatomical Collection Method Collection Time Receive d Time (Source) Location / / Volume Laterality Blood specimen 07/10/2017 4:28 AM 017 4:36 (specimen) EST AM EST Resulting Agency Comment Spec In Lab Yuan Webber MD CHEMISTRY ORDERABLES Performing Organization Address City/[facility]/ZIP Code [place] [address] POCT Glucose (07/10/2017 4:26 AM EST) P athologist Signature POC Glucose 176 65 - 199 [facility] mg/dL [facility] LABORATORY [...] Organization Address City/State/ZIP [place] [address] (ABNORMAL) POCT Glucose (07/10/2017 3:06 AM EST) athologist Signature POC Glucose 204 (H) 65 - 199 [facility] mg/dL [facility] LABORATORY [...] Organization Address City/State/ZIP [place] [address] (ABNORMAL) POCT Glucose (07/10/2017 2:10 AM EST) athologist Signature POC Glucose 203 (H) 65 - 199 [facility] mg/dL [facility] LABORATORY [...] Address City/State/ZIP Code Phon e Number [address] POCT Glucose (07/10/2017 1:09 AM EST) P athologist Signature POC Glucose 196 65 - 199 [place] mg/dL [facility] LABORATORY [...] Address City/State/ZIP Code Phon e Number [address] POCT Glucose (07/10/2017 12:10 AM EST) athologist Signature POC Glucose 173 65 - 199 [place] mg/dL [facility] LABORATORY [...] Address City/State/ZIP Code Phon e Number [address] POCT Glucose (07/09/2017 11:01 PM EST) athologist Signature POC Glucose 140 65 - 199 [place] mg/dL [facility] LABORATORY [...] Organization Address City/State/ZIP [place] [address] POCT Glucose (07/09/2017 10:05 PM EST) athologist Signature POC Glucose 144 65 - 199 [place] mg/dL [facility] [...] Address City/State/ZIP Code Phon e Number [address] POCT Glucose (07/09/2017 9:31 PM EST) athologist Signature POC Glucose 121 65 - 199 [place] mg/dL [facility] LABORATORY [...] Address City/State/ZIP Code Phon e Number [address] POCT Glucose (07/09/2017 9:03 PM EST) athologist Signature POC Glucose 98 65 - 199 [place] mg/dL [facility] LABORATORY [...] Address City/State/ZIP Code Phon e Number [address] POCT Glucose (07/09/2017 8:09 PM EST) athologist Signature POC Glucose 117 65 - 199 [place] mg/dL [facility] LABORATORY [...] Organization Address City/State/ZIP [place] [address] POCT Glucose (07/09/2017 5:40 PM EST) athologist Signature POC Glucose 155 65 - 199 [place] mg/dL [facility] [...] Organization Address City/State/ZIP Code [place] [address] POCT Glucose (07/09/2017 4:24 PM EST) athologist Signature POC Glucose 164 65 - 199 [place] mg/dL [facility] LABORATORY [...] Address City/State/ZIP Code Phon e Number [address] POCT Glucose (07/09/2017 3:19 PM EST) athologist Signature POC Glucose 166 65 - 199 [place] mg/dL [facility] [...] Organization Address City/State/ZIP [place] [address] POCT Glucose (07/09/2017 2:26 PM EST) athologist Signature POC Glucose 179 65 - 199 [facility] [place] mg/dL [facility] LABORATORY [...] Organization Address City/State/ZIP [place] [address] (ABNORMAL) POCT Glucose (07/09/2017 1:29 PM EST) athologist Signature POC Glucose 210 (H) 65 - 199 [place] mg/dL [facility] [...] Organization Address City/State/ZIP [place] [address] POCT Glucose (07/09/2017 12:20 PM EST) athologist Signature POC Glucose 172 65 - 199 [place] mg/dL [facility] LABORATORY [...] Address City/State/ZIP Code Phon e Number [address] POCT Glucose (07/09/2017 11:24 AM EST) athologist Signature POC Glucose 156 65 - 199 [facility] [place] mg/dL [facility] LABORATORY [...] Address City/State/ZIP Code Phon e Number [address] POCT Glucose (07/09/2017 11:11 AM EST) athologist Signature POC Glucose 172 65 - 199 [place] mg/dL [facility] LABORATORY [...] Address City/State/ZIP Code Phon e Number [address] POCT Glucose (07/09/2017 10:08 AM EST) athologist Signature POC Glucose 176 65 - 199 [place] mg/dL [facility] LABORATORY [...] Organization Address City/State/ZIP [place] [address] POCT Glucose (07/09/2017 8:02 AM EST) P athologist Signature POC Glucose 178 65 - 199 [facility] mg/dL [facility] LABORATORY [...] Organization Address City/State/ZIP [place] [address] (ABNORMAL) BLOOD GAS 2 ARTERIAL (07/09/2017 5:37 AM EST) Analysis Performed At Patho logist Time Signature pH Art 7.36 7.35 - [facility] 7.45 [facility] LABORATORY pCO2 Art 38 35 - 45 [facility] mmHg [facility] LABORATORY pO2 Art 79 (L) 85 - 104 [facility] mmHg [facility] LABORATORY HCO3 Art 20.9 20.0 - [facility] 26.0 [facility] mmol/L [facility] LABORATORY BE Art -4.6 (L) -3.0 - 3.0 [facility] mmol/L [facility] LABORATORY Hgb Blood Gas 10.5 (L) 13.7 - [facility] 16.5 gm/dL [facility] LABORATORY O2HB Art 93.8 (L) 94.0 - [facility] 97.0 % [facility] [...] [facility]ICAL CENTER LABORATORY PF Ratio Art 198 [facility] LABORATORY Specimen Anatomical Collection Method Collection Time Receive d Time (Source) Location / / Volume Laterality Blood specimen 07/09/2017 5:37 AM 017 5:37 (specimen) EST AM EST Yuan Webber MD CHEMISTRY ORDERABLES Performing Organization Address City/State/[place] [address] POCT Glucose (07/09/2017 3:27 AM EST) P athologist Signature POC Glucose 192 65 - 199 [facility] mg/dL [facility] LABORATORY [...] Organization Address City/State/[place] [address] (ABNORMAL) Basic Metabolic Panel (non-fasting) (07/09/2017 2:30 AM EST) P athologist Signature Glucose Lvl 179 65 - 199 [facility] mg/dL [facility] LABORATORY [...] or in patients with acute kidney failure. [email or web address] [email or web address] Specimen Anatomical Collection Method Collection Time Receive d Time (Source) Location / / Volume Laterality Blood specimen Venous Draw / 07/09/2017 2:30 AM 2016 2:42 (specimen) Unknown EST AM EST Resulting Agency Comment Spec In Lab Yuan Webber MD CHEMISTRY ORDERABLES Performing Organization Address City/State/[place] [address] (ABNORMAL) Potassium (07/09/2017 2:30 AM EST) P athologist Signature Potassium 5.1 (H) 3.5 - 5.0 BARBAR[place] RYAN mmol/L [facility] LABORATORY [...] City/[facility]/[place] [address] (ABNORMAL) Hemogram (07/09/2017 2:30 AM EST) Analysis Performed At Patho logist Time Signature WBC 12.5 (H) 4.0 - 9.5 BARBAR[place] RYAN x10(3)/[facility] LABORATORY RBC 3.38 (L) 4.58 - BARBARA RYAN 5.54 [facility] x10(6)/[facility] LABORATORY Hemoglobin 10.1 (L) 13.7 - BARBARA RYAN 16.5 gm/dL [facility] LABORATORY Hematocrit 30.3 (L) 40.5 - BARBARA RYAN 48.5 % [facility] LABORATORY MCV 89.6 82.9 - BARBAR[place] RYAN 93.1 [facility] LABORATORY MCH 29.9 27.5 - BARBARA RYAN 32.1 pg [facility] LABORATORY MCHC 33.3 32.0 - BARBAR[place] RYAN 35.7 gm/dL [facility] LABORATORY Platelets 127 (L) 145 - 357 [place] RYAN x10(3)/[facility] LABORATORY RDWSD 49.3 (H) 36.0 - BARBAR[place] RYAN 45.0 [facility] LABORATORY RDWCV 15.2 (H) 11.4 - BARBAR[place] RYAN 13.8 % [facility] LABORATORY MPV 9.9 7.6 - 12.9 [facility] LABORATORY nRBC % Auto 0.0 % [facility] LABORATORY nRBC Abs Auto 0.000 0.000 - BARBARA DAVIS 0.000 [facility] x10(3)/[facility] LABORATORY Specimen Anatomical Collection Method Collection Time Receive d Time (Source) Location / / Volume Laterality Blood specimen 07/09/2017 2:30 AM 017 2:41 (specimen) EST AM EST Resulting Agency Comment Spec In Lab Yuan Webber MD HEMATOLOGY ORDERABLES Performing Organization Address City/State/ZIP Code Phon e Number [address] POCT Glucose (07/09/2017 2:10 AM EST) athologist Signature POC Glucose 169 65 - 199 [facility] mg/dL [facility] LABORATORY [...] Address City/State/ZIP Code Phon e Number [address] POCT Glucose (07/09/2017 1:01 AM EST) athologist Signature POC Glucose 173 65 - 199 [facility] LABORATORY [...] Address City/State/ZIP Code Phon e Number [address] Blood culture (07/09/2017 12:40 AM EST) [facility] [employer] Method Time Signature Blood Culture No growth BARBARA DAVIS at 5 days. [facility] LABORATORY Specimen Anatomical Collection Method Collection Time Receive d Time (Source) Location / / Volume Laterality Blood specimen STRUCTURE OF RIGHT 07/09/2017 12:40 3:58 (specimen) UPPER LIMB / AM EST AM EST Unknown Resulting Agency Comment Spec In Lab Yuan Webber MD MICROBIOLOGY - BLOOD ORDERAB LES Performing Organization Address City/[facility]/ZIP Code Phon e Number [address] Blood culture (07/09/2017 12:30 AM EST) [facility] [employer] Method Time Signature Blood Culture No growth BARBARA DAVIS at 5 days. [facility] LABORATORY Specimen Anatomical Collection Method Collection Time Receive d Time (Source) Location / / Volume Laterality Blood specimen STRUCTURE OF LEFT 07/09/2017 12:30 06/25 3:59 (specimen) UPPER LIMB / AM EST AM EST Unknown Resulting Agency Comment Spec In Lab Yuan Webber MD MICROBIOLOGY - BLOOD ORDERAB LES Performing Organization Address City/[facility]/ZIP [place] [address] (ABNORMAL) Urinalysis Microscopic Exam (07/09/2017 12:05 AM EST) Analysis Performed At Patho logist Time Signature RBC UA 32 (H) 0 - 3 /HPF [facility] LABORATORY WBC UA 5 (H) 0 - 3 /HPF [facility] LABORATORY Squam Epith UA <1 <=4 /HPF [facility] LABORATORY Hyaline Cast 17 (H) 0 - 2 /LPF [facility] LABORATORY Gran Cast UA 1 (H) <=0 /LPF [facility] LABORATORY Uric Ac Bianca Rare (A) None /HPF [facility] LABORATORY Specimen (Source) Anatomical Collection Method Collection Time Re ceived Time Location / / Volume Laterality Urine specimen 07/09/2017 12:05 7 obtained via AM EST 12:39 AM EST indwelling urinary catheter (specimen) Resulting Agency Comment Spec In Lab Yuan Webber MD URINE ORDERABLES Performing Organization Address City/State/ZIP Code Phon e Number [address] (ABNORMAL) Urinalysis with reflex Culture (07/09/2017 12:05 AM EST) Patholo gist Method Time Signature Glucose UA Negative Negative [facility] [place] mg/dL [facility] LABORATORY Protein UA 30 (A) Negative [facility] [place] mg/dL [facility] LABORATORY Bilirubin UA Negative Negative [facility] mg/dL [facility] LABORATORY [...] [facility] Nitrite UA Negative Negative [facility] LABORATORY Leukocytes UA Negative Negative [facility] LABORATORY Appearance UA Hazy (A) Clear [facility] LABORATORY Spec [place] UA 1.025 1.002 - 1.030 [facility] LABORATORY Color UA Yellow Yellow [facility] LABORATORY Culture Reflexed No WHITE [...] City/State/ZIP Code Phon e Number [place] [id number] [facility] LAB[address]ORY Drive POCT Glucose (07/08/2017 11:01 PM EST) P athologist Signature POC Glucose 191 65 - 199 [facility] mg/dL [facility] LABORATORY [...] Organization Address City/State/ZIP [place] [address] POCT Glucose (07/08/2017 10:04 PM EST) P athologist Signature POC Glucose 198 65 - 199 [facility] LABORATORY [...] Organization Address City/State/ZIP [place] [address] Prepare Albumin 5% in [...] Address City/State/ZIP Code Phon e Number [address] POCT Glucose (07/08/2017 8:28 PM EST) P athologist Signature POC Glucose 195 65 - 199 [facility] mg/dL [facility] LABORATORY [...] City/[facility]/ZIP [place] [address] (ABNORMAL) POCT Glucose (07/08/2017 7:13 PM EST) P athologist Signature POC Glucose 220 (H) 65 - 199 [facility] mg/dL [facility] LABORATORY [...] City/[facility]/ZIP [place] [address] POCT Glucose (07/08/2017 5:04 PM EST) P athologist Signature POC Glucose 147 65 - 199 [facility] [place] mg/dL [facility] LABORATORY [...] Organization Address City/State/ZIP [place] [address] (ABNORMAL) BLOOD GAS 2 ARTERIAL (07/08/2017 4:13 PM EST) Analysis Performed At Patho logist Time Signature pH Art 7.38 7.35 - [facility] 7.45 [facility] LABORATORY pCO2 Art 36 35 - 45 [facility] LABORATORY pO2 Art 91 85 - 104 [facility] LABORATORY HCO3 Art 20.9 20.0 - [facility] 26.0 [facility] mmol/L [facility] LABORATORY BE Art -4.2 (L) -3.0 - 3.0 [facility] mmol/L [facility] LABORATORY Hgb Blood Gas 11.7 (L) 13.7 - [facility] 16.5 gm/dL [facility] LABORATORY O2HB Art 95.1 94.0 - [facility] 97.0 % [facility] LABORATORY COHB Art 0.6 % [facility] LAB[facility] PF Ratio Art 228 [facility] LABORATORY Specimen Anatomical Collection Method Collection Time Receive d Time (Source) Location / / Volume Laterality Blood specimen 07/08/2017 4:13 PM 017 4:13 (specimen) EST PM EST Yuan Webber MD CHEMISTRY ORDERABLES Performing Organization Address City/State/[place] [address] POCT Glucose (07/08/2017 4:01 PM EST) athologist Signature POC Glucose 148 65 - 199 [place] RYAN mg/dL [facility] LABORATORY [...] Address City/State/ZIP Code Phon e Number [address] POCT Glucose (07/08/2017 3:21 PM EST) athologist Signature POC Glucose 118 65 - 199 [facility] RYAN mg/dL [facility] LABORATORY [...] Address City/State/ZIP Code Phon e Number [address] POCT Glucose (07/08/2017 2:01 PM EST) athologist Signature POC Glucose 129 65 - 199 [place]BAR[place] RYAN mg/dL [facility] LABORATORY [...] Address City/State/ZIP Code Phon e Number [address] POCT Glucose (07/08/2017 11:53 AM EST) athologist Signature POC Glucose 156 65 - 199 [facility] mg/dL [facility] LABORATORY [...] Organization Address City/State/ZIP [place] [address] POCT Glucose (07/08/2017 11:04 AM EST) athologist Signature POC Glucose 181 65 - 199 [facility] mg/dL [facility] LABORATORY [...] City/[facility]/ZIP [place] [address] (ABNORMAL) POCT Glucose (07/08/2017 9:24 AM EST) athologist Signature POC Glucose 203 (H) 65 - 199 [facility] mg/dL [facility] LABORATORY [...] Organization Address City/State/ZIP [place] [address] APTT (07/08/2017 8:40 AM [...] City/[facility]/ZIP [place] [address] (ABNORMAL) Prothrombin Time (07/08/2017 [...] Organization Address City/State/ZIP [place] [address] (ABNORMAL) POCT Glucose (07/08/2017 7:38 AM EST) athologist Signature POC Glucose 232 (H) 65 - 199 [facility] mg/dL [facility] LABORATORY [...] Organization Address City/State/ZIP [place] [address] (ABNORMAL) POCT Glucose (07/08/2017 7:07 AM EST) athologist Signature POC Glucose 234 (H) 65 - 199 [place] RYAN mg/dL [facility] LABORATORY [...] Organization Address City/State/ZIP [place] [address] (ABNORMAL) POCT Glucose (07/08/2017 6:04 AM EST) athologist Signature POC Glucose 225 (H) 65 - 199 [place]BAR[place] RYAN mg/dL [facility] LABORATORY [...] Organization Address City/State/ZIP [place] [address] (ABNORMAL) POCT Glucose (07/08/2017 5:31 AM EST) athologist Signature POC Glucose 216 (H) 65 - 199 [place] RYAN mg/dL [facility] LABORATORY [...] Organization Address City/State/ZIP [place] [address] (ABNORMAL) POCT Glucose (07/08/2017 4:52 AM EST) P athologist Signature POC Glucose 257 (H) 65 - 199 [facility] mg/dL [facility] LABORATORY [...] City/[facility]/ZIP [place] [address] (ABNORMAL) BLOOD GAS 2 ARTERIAL (07/08/2017 4:04 AM EST) Analysis Performed At Patho logist Time Signature pH Art 7.30 (L) 7.35 - [facility] 7.45 [facility] LABORATORY pCO2 Art 41 35 - 45 [facility] mmHg [facility] LABORATORY pO2 Art 83 (L) 85 - 104 [facility] mmHg [facility] LABORATORY HCO3 Art 19.6 (L) 20.0 - [facility] 26.0 [facility] mmol/L [facility] LABORATORY BE Art -6.8 (L) -3.0 - 3.0 [facility] mmol/L [facility] LABORATORY Hgb Blood Gas 12.2 (L) 13.7 - [facility] 16.5 gm/dL [facility] LABORATORY O2HB Art 93.5 (L) 94.0 - [facility] 97.0 % [facility] LABORATORY COHB Art 0.4 % [facility] LABORATORY Comment: Noted by musical instruments assembler. FIO2 Art 40 % [facility] LABORATORY PF Ratio Art 208 [facility] LABORATORY Specimen Anatomical Collection Method Collection Time Receive d Time (Source) Location / / Volume Laterality Blood specimen 07/08/2017 4:04 AM 017 4:04 (specimen) EST AM EST Daphne Shahid MD CHEMISTRY ORDERABLES Performing Organization Address City/[facility]/[place] [address] Scan, Peripheral Blood (07/08/2017 [...] City/[facility]/[place] [address] (ABNORMAL) Differential, Automated (07/08/2017 4:00 AM EST) [facility] Method Time Signature Neutrophils % 85.4 % [facility] LABORATORY Neutr Abs (ANC) 16.07 (H) 1.70 - [facility] 6.10 [facility] x10(3)/[facility] L LABORATORY Lymphocytes % 3.5 % [facility] LABORATORY Lymphocytes Abs 0.6 (L) 0.9 - 3.2 [facility] x10(3)/[facility] LABORATORY Monocytes % 10.4 % [facility] LABORATORY Monocyte Abs 2.0 (H) 0.3 - 0.9 [facility] x10(3)/[facility] LABORATORY Eosinophils % 0.0 % [facility] LABORATORY Eosinophils Abs 0.0 0.0 - 0.4 [facility] x10(3)/[facility] LABORATORY Basophils % 0.1 % [facility] LABORATORY Basophils Abs 0.0 0.0 - 0.1 [facility] x10(3)/[facility] LABORATORY Immature Gran % 0.60 % [facility] [...] Organization Address City/State/[place] [address] (ABNORMAL) Hemogram (07/08/2017 4:00 AM EST) Analysis Performed At Patho logist Time Signature WBC 18.8 (H) 4.0 - 9.5 [facility] x10(3)/[facility] LABORATORY RBC 4.00 (L) 4.58 - BARBARA ZHAORYAN 5.54 [facility] x10(6)/[facility] LABORATORY Hemoglobin 11.9 (L) 13.7 - [facility] 16.5 gm/dL [facility] LABORATORY Hematocrit 35.9 (L) 40.5 - [facility] 48.5 % [facility] LABORATORY MCV 89.8 82.9 - [facility] 93.1 [facility] LABORATORY MCH 29.8 27.5 - [facility] 32.1 pg [facility] LABORATORY MCHC 33.1 32.0 - [facility] 35.7 gm/dL [facility] LABORATORY Platelets 232 145 - 357 [facility] x10(3)/[facility] LABORATORY RDWSD 47.6 (H) 36.0 - BARBAR[place] RYAN 45.0 [facility] LABORATORY RDWCV 14.5 (H) 11.4 - [facility] RYAN 13.8 % [facility] LABORATORY MPV 9.5 7.6 - 12.9 [facility] nRBC % Auto 0.0 % [facility] LABORATORY nRBC Abs Auto 0.000 0.000 - BARBARA RYAN 0.000 [facility] x10(3)/[facility] LABORATORY Specimen Anatomical Collection Method Collection Time Receive d Time (Source) Location / / Volume Laterality Blood specimen 07/08/2017 4:00 AM 017 4:09 (specimen) EST AM EST Resulting Agency Comment Spec In Lab Yuan Webber MD HEMATOLOGY ORDERABLES Performing Organization Address City/State/[place] [address] (ABNORMAL) Electrolytes panel (07/08/2017 4:00 AM EST) P athologist Signature Sodium 139 135 - 145 [facility] mmol/L [facility] LABORATORY Potassium 4.7 3.5 - 5.0 [facility] mmol/L [facility] LABORATORY [...] Organization Address City/State/[place] [address] (ABNORMAL) Cardiac Enzymes (LEB/CGP) (07/08/2017 4:00 AM EST) P athologist Signature Troponin-T 1.88 (H) 0.00 - [facility] 0.00 ng/mL [facility] [...] additional sample may be indicated. Reference: Third [place] Definition of Myocardial Infarction. Journal of the [place] [employer] 2012;60:1581-98 CK, Total 413 [...] City/[facility]/ZIP Code Phon e Number [address] (ABNORMAL) Glucose, fasting (07/08/2017 4:00 AM EST) athologist Signature Glucose 287 (H) 65 - 99 [facility] Fasting mg/dL [facility] [...] of Diabetes Mellitus, Position Statement from the [place] [employer]. ??Diabete s Care, Volume 33, Supplement 1, Jul 2009 Specimen Anatomical Collection Method Collection Time Receive d Time (Source) Location / / Volume Laterality Blood specimen 07/08/2017 4:00 AM 017 4:09 (specimen) EST AM EST Resulting Agency Comment Spec In Lab Yuan Webber MD CHEMISTRY ORDERABLES Performing Organization Address City/[facility]/ZIP [facility] [place] [address] (ABNORMAL) Creatinine (07/08/2017 4:00 AM EST) Analysis Performed At Patho logist Time Signature Creatinine 1.55 (H) 0.80 - [facility] 1.50 mg/dL [facility] LABORATORY Estimated GFR 44 (L) >=60 [facility] LABORATORY Comment: The reported eGFR should be multiplied b y 1.2 for patients. The MDRD is not an appropriate measure o f renal function for patients with body mass extremes or in patients with acute kidney failure. http://[employer]/DHnkdep http://[employer]/DHMCnkf Specimen Anatomical Collection Method Collection Time Receive d Time (Source) Location / / Volume Laterality Blood specimen 07/08/2017 4:00 AM 017 4:09 (specimen) EST AM EST Resulting Agency Comment Spec In Lab Yuan Webber MD CHEMISTRY ORDERABLES Performing Organization Address City/[facility]/ZIP [facility] Phon e Number [address] BUN (07/08/2017 4:00 AM EST) P athologist Signature BUN 16 10 - 20 [facility] mg/dL [facility] LABORATORY Specimen Anatomical Collection Method Collection Time Receive d Time (Source) Location / / Volume Laterality Blood specimen 07/08/2017 4:00 AM 017 4:09 (specimen) EST AM EST Resulting Agency Comment Spec In Lab Yuan Webber MD CHEMISTRY ORDERABLES Performing Organization Address City/[facility]/ZIP [facility] [place] [address] (ABNORMAL) POCT Glucose (07/08/2017 3:00 AM EST) P athologist Signature POC Glucose 273 (H) 65 - 199 [facility] mg/dL [facility] LABORATORY [...] Organization Address City/State/ZIP [place] [address] (ABNORMAL) POCT Glucose (07/08/2017 1:57 AM EST) athologist Signature POC Glucose 288 (H) 65 - 199 [facility] mg/dL [facility] LABORATORY [...] Organization Address City/State/ZIP [place] [address] (ABNORMAL) POCT Glucose (07/08/2017 1:01 AM EST) athologist Signature POC Glucose 315 (H) 65 - 199 [facility] mg/dL [facility] LABORATORY [...] Organization Address City/State/ZIP [place] [address] (ABNORMAL) BLOOD GAS 2 ARTERIAL (07/08/2017 12:09 AM EST) athologist Signature pH Art 7.26 7.35 - [facility] (Critical) 7.45 [facility] LABORATORY Comment: Noted by musical [...] CARE [facility]PITAL LABORATORY COHB Art 0.2 % [facility] Comment: Noted by musical instruments assembler. FIO2 Art 40 % [facility] LABORATORY PF Ratio Art 240 [facility] LABORATORY Specimen Anatomical Collection Method Collection Time Receive d Time (Source) Location / / Volume Laterality Blood specimen Arterial Draw / 07/08/2017 12:09 2016 5:31 (specimen) Unknown AM EST AM EST Resulting Agency Comment Spec In Lab Samy Maldonado MD CHEMISTRY ORDERABLES Performing Organization Address City/State/[place] [address] (ABNORMAL) POCT Glucose (07/07/2017 10:56 PM EST) athologist Signature POC Glucose 292 (H) 65 - 199 [facility] mg/dL [facility] LABORATORY [...] Organization Address City/State/[place] [address] (ABNORMAL) BLOOD GAS 2 ARTERIAL (07/07/2017 10:04 PM EST) athologist Signature pH Art 7.22 7.35 - [facility] (Critical) 7.45 [facility] LABORATORY Comment: Noted by musical [...] CARE HOSPITAL LABORATORY COHB Art 0.7 % [facility] [...] [facility] Comment: Noted by musical instruments assembler. FIO2 Art 40 % [facility] LABORATORY PF Ratio Art 235 [facility] LABORATORY Specimen Anatomical Collection Method Collection Time Receive d Time (Source) Location / / Volume Laterality Blood specimen 07/07/2017 10:04 7 (specimen) PM EST 10:04 PM EST Daphne Shahid MD CHEMISTRY ORDERABLES Performing Organization Address City/State/ZIP Code Phon e Number [address] (ABNORMAL) Hemoglobin (07/07/2017 10:00 PM EST) P athologist Signature Hemoglobin 12.8 (L) 13.7 - [facility] 16.5 gm/dL [facility] LABORATORY Specimen Anatomical Collection Method Collection Time Receive d Time (Source) Location / / Volume Laterality Blood specimen 07/07/2017 10:00 7 (specimen) PM EST 10:13 PM EST Resulting Agency Comment Spec In Lab Yuan Webber MD HEMATOLOGY ORDERABLES Performing Organization Address City/State/ZIP Code Phon e Number [address] (ABNORMAL) Potassium (07/07/2017 10:00 PM EST) P athologist Signature Potassium 3.4 (L) 3.5 - 5.0 [facility] mmol/L [facility] LABORATORY [...] City/[facility]/ZIP [place] [address] (ABNORMAL) POCT Glucose (07/07/2017 8:49 PM EST) athologist Signature POC Glucose 241 (H) 65 - 199 [facility] mg/dL [facility] LABORATORY [...] City/[facility]/ZIP [place] [address] Prepare Albumin 5% in [...] [facility] BLOOD BANK ORDERABLES Performing Organization Address City/[facility]/ZIP [place] [address] EKG 12 Lead (07/07/2017 7:17 PM EST) Component Value Ref Range Test Analysis Performed Pathologis t Method Time At Signature Ventricular rate 75 BPM MUSE SYSTEM Atrial Rate 75 BPM MUSE SYSTEM P-R Interval 168 ms MUSE SYSTEM QRS Duration 104 ms MUSE SYSTEM Q-T Interval 462 ms MUSE SYSTEM QTC Calculated 515 ms MUSE SYSTEM (Bezet) Calculated P [place] 52 degrees MUSE SYSTEM Calculated R [place] -40 degrees MUSE SYSTEM Calculated T [place] 39 degrees MUSE SYSTEM INTERPRETATION Normal sinus [...] athologist Signature pH Art 7.21 7.35 - [facility] (Critical) 7.45 [facility]ATORY Comment: Noted by musical [...] [facility] COHB Art 0.5 % [facility] [...] [facility] Comment: Noted by musical instruments [...] [facility] Comment: Noted by musical instruments assembler. FIO2 Art 100 % [facility] PF Ratio Art 238 [facility] Specimen Anatomical Collection Method Collection Time Receive d Time (Source) Location / / Volume Laterality Blood specimen 07/07/2017 6:57 PM 017 6:57 (specimen) EST PM EST Daphne Shahid MD CHEMISTRY ORDERABLES Performing Organization Address City/State/[place] [address] (ABNORMAL) BLOOD GAS 2 ARTERIAL (07/07/2017 5:31 PM EST) P athologist Signature pH Art 7.29 7.35 - [facility] (Critical) 7.45 [facility] Comment: Noted by musical [...] [facility] COHB Art 0.3 % [facility] [...] Organization Address City/State/[place] [address] Fibrinogen (07/07/2017 5:30 PM EST) P athologist Signature Fibrinogen 224 180 - 510 [facility] mg/dL [facility] LABORATORY [...] HEMATOLOGY ORDERABLES Performing Organization Address [facility] Phon e Number [address] APTT (07/07/2017 5:30 PM [...] Perez MD HEMATOLOGY ORDERABLES Performing Organization Address [facility] [place] [address] (ABNORMAL) Prothrombin Time (07/07/2017 [...] HEMATOLOGY ORDERABLES Performing Organization Address [facility]/[place] [address] (ABNORMAL) Hemogram (07/07/2017 5:30 PM EST) athologist Signature WBC 19.6 (H) 4.0 - 9.5 [facility] x10(3)/[facility] LABORATORY RBC 3.08 (L) 4.58 - [facility] 5.54 [facility] x10(6)/[facility] LABORATORY Hemoglobin 9.2 (L) 13.7 - [facility] 16.5 gm/dL [facility] Hematocrit 28.0 (L) 40.5 - [facility] 48.5 % [facility] [...] HOSPITAL LABORATORY Platelets 155 145 - 357 x10(3)/[facility] LABORATORY RDWSD 46.5 (H) 36.0 - [...] Organization Address City/State/[place] [address] Prepare Platelets, Apheresis (07/07/2017 5:00 PM EST) P athologist Signature Dispensed? Yes [facility] Specimen Anatomical Collection Method Collection Time Receive d Time (Source) Location / / Volume Laterality Blood specimen 07/07/2017 5:00 PM 017 4:58 (specimen) EST PM EST Daphne Shahid MD BLOOD BANK ORDERABLES Performing Organization Address City/State/[place] [address] Platelet count (07/07/2017 4:55 PM EST) athologist Signature Platelets 177 145 - 357 [facility] x10(3)/[facility] LABORATORY Plat Immature 1.5 0.0 - 7.4 [facility] % % [facility] Comment: Limitation of the Immature Platelet Frac tion (IPF)-May be less reliable when the platelet count is less than 34u571/u L due to statistical imprecision. The IPF [...] in a decreased state of production. References: [employer] The Clinical Value of the Immature Platelet Fraction (IPF) in Cell Recovery Document Number [id number] 12/2010 [employer] The Role of the Imm ature [...] City/[facility]/[place] [address] (ABNORMAL) Hemoglobin and Hematocrit, blood (07/07/2017 4:55 PM EST) P athologist Signature Hemoglobin 9.1 (L) 13.7 - 16.5 [facility] gm/dL [facility] LABORATORY [...] City/[facility]/ZIP [place] [address] (ABNORMAL) BLOOD GAS 2 ARTERIAL (07/07/2017 4:38 PM EST) Analysis Performed At Patho logist Time Signature pH Art 7.37 7.35 - [facility] 7.45 [facility] pCO2 Art 44 35 - 45 [facility] mmHg [facility] pO2 Art 322 (H) 85 - 104 [facility] mmHg [facility] HCO3 Art 24.9 20.0 - [facility] 26.0 [facility] mmol/L [facility] LABORATORY BE Art -0.4 -3.0 - 3.0 [facility] mmol/L [facility] Hgb Blood Gas 10.1 (L) 13.7 - [facility] 16.5 gm/dL [facility]OR[facility]ORY O2HB Art 98.7 (H) 94.0 - [facility] 97.0 % [facility] COHB Art 0.1 % [facility] Comment: Noted by musical instruments [...] Organization Address City/State/[place] [address] (ABNORMAL) BLOOD GAS 2 VENOUS (07/07/2017 4:06 PM EST) Analysis Performed At Patho logist Time Signature pH Cody 7.31 (L) 7.32 - [facility] 7.42 [facility] LABORATORY pCO2 Cody 47 41 - 51 [facility] LABORATORY pO2 Cody 53 (H) 25 - 40 [facility] LABORATORY HCO3 Cody 22.7 mmol/L [facility]OR[facility] BE Cody -3.7 mmol/L [facility] Hgb Blood Gas 10.2 (L) 13.7 - [facility] 16.5 gm/dL [facility] O2HB [place] 81.0 % [facility] Comment: Noted by musical instruments [...] [facility] BGas Source Venous [facility] Specimen Anatomical Collection Method Collection Time Receive d Time (Source) Location / / Volume Laterality Blood specimen 07/07/2017 4:06 PM 017 4:06 (specimen) EST PM EST Daphne Shahid MD CHEMISTRY ORDERABLES Performing Organization Address City/State/[place] [address] (ABNORMAL) BLOOD GAS 2 ARTERIAL (07/07/2017 4:05 PM EST) Analysis Performed At Patho logist Time Signature pH Art 7.36 7.35 - [facility] 7.45 [facility] LABORATORY pCO2 Art 40 35 - 45 [facility] LABORATORY pO2 Art 282 (H) 85 - 104 [facility] LABORATORY HCO3 Art 22.1 20.0 - [facility] 26.0 [facility] mmol/L [facility] LABORATORY BE Art -3.4 (L) -3.0 - 3.0 [facility] mmol/L [facility]OR[facility]ORY Hgb Blood Gas 10.2 (L) 13.7 - [facility] 16.5 gm/dL [facility]ORATORY O2HB Art 98.4 (H) 94.0 - [facility] 97.0 % [facility] [...] [facility] Comment: Noted by musical instruments [...] Organization Address City/State/[place] [address] (ABNORMAL) BLOOD GAS 2 ARTERIAL (07/07/2017 2:29 PM EST) Analysis Performed At Patho logist Time Signature pH Art 7.43 7.35 - [facility] 7.45 [facility] LABORATORY pCO2 Art 36 35 - 45 [facility] LABORATORY pO2 Art 221 (H) 85 - 104 [facility] LABORATORY HCO3 Art 23.2 20.0 - [facility] 26.0 [facility] mmol/L [facility] LABORATORY BE Art -1.2 -3.0 - 3.0 [facility] mmol/L [facility]OR[facility]ORY Hgb Blood Gas 13.9 13.7 - [facility] 16.5 gm/dL [facility] O2HB Art 97.8 (H) 94.0 - [facility] 97.0 % [facility]ORATORY COHB Art 1.1 % [facility] [...] Organization Address City/State/ZIP [place] [address] Prepare Coag Factors (Non-Hemophilia) (07/07/2017 1:25 PM EST) P athologist Signature Dispensed? Yes [facility] Specimen Anatomical Collection Method Collection Time Receive d Time (Source) Location / / Volume Laterality Blood specimen 07/07/2017 1:25 PM 017 1:21 (specimen) EST PM EST Daphne Shahid MD BLOOD BANK ORDERABLES Performing Organization Address City/State/ZIP Code Phon e Number [address] Prepare RBC (07/07/2017 1:10 PM EST) athologist Signature Dispensed? Yes [facility] Specimen Anatomical Collection Method Collection Time Receive d Time (Source) Location / / Volume Laterality Blood specimen 07/07/2017 1:10 PM 017 1:05 (specimen) EST PM EST Daphne Shahid MD BLOOD BANK ORDERABLES Performing Organization Address City/State/ZIP [place] [address] POCT Glucose (07/07/2017 11:56 AM EST) athologist Signature POC Glucose 188 65 - 199 [facility] mg/dL [facility] LABORATORY [...] Organization Address City/State/ZIP [place] [address] POCT Glucose (07/07/2017 11:05 AM EST) athologist Signature POC Glucose 168 65 - 199 [facility] LABORATORY [...] Organization Address City/State/ZIP [place] [address] POCT Glucose (07/07/2017 10:02 AM EST) P athologist Signature POC Glucose 191 65 - 199 [facility] mg/dL [facility] LABORATORY [...] Organization Address City/State/ZIP [place] [address] POCT Glucose (07/07/2017 7:53 AM EST) athologist Signature POC Glucose 178 65 - 199 [facility] mg/dL [facility] LABORATORY [...] Address City/State/ZIP Code Phon e Number [address] POCT Glucose (07/07/2017 7:03 AM EST) athologist Signature POC Glucose 188 65 - 199 [facility] mg/dL [facility] LABORATORY [...] Organization Address City/State/ZIP [place] [address] (ABNORMAL) POCT Glucose (07/07/2017 6:17 AM EST) athologist Signature POC Glucose 207 (H) 65 - 199 [facility] LABORATORY [...] City/[facility]/ZIP Code Phon e Number [address] Differential, Automated (07/07/2017 5:15 AM EST) athologist Signature Neutrophils % 69.7 % [facility]OR[facility]ORY Neutr Abs (ANC) 5.32 1.70 - [facility] 6.10 [facility] x10(3)/[facility] LABORATORY Lymphocytes % 16.3 % [facility]OR[facility]ORY Lymphocytes Abs 1.2 0.9 - 3.2 [facility] x10(3)/[facility] LABORATORY Monocytes % 10.5 % [facility]ORY Monocyte Abs 0.8 0.3 - 0.9 [facility] x10(3)/[facility] LABORATORY Eosinophils % 2.5 % [facility]ORY Eosinophils Abs 0.2 0.0 - 0.4 [facility] x10(3)/[facility] LABORATORY Basophils % 0.7 % [facility] Basophils Abs 0.0 0.0 - 0.1 [facility] x10(3)/[facility] LABORATORY Immature [...] Melisa Gran Abs 0.02 0.00 - 0.04 x10(3)/[facility] LABORATORY Specimen Anatomical Collection Method Collection Time Receive d Time (Source) Location / / Volume Laterality Blood specimen 07/07/2017 5:15 AM 017 5:34 (specimen) EST AM EST Resulting Agency Comment Spec In Lab Daphne Shahid MD HEMATOLOGY ORDERABLES Performing Organization Address City/State/ZIP [place] [address] (ABNORMAL) Hemogram (07/07/2017 5:15 AM EST) Analysis Performed At Patho logist Time Signature WBC 7.6 4.0 - 9.5 [facility] x10(3)/[facility] LABORATORY RBC 4.82 4.58 [facility] x10(6)/[facility] Hemoglobin 14.4 13.7 - [facility] 16.5 gm/dL [facility]ORY Hematocrit 42.1 40.5 - [facility] 48.5 % [facility] LABORATORY MCV 87.3 82.9 - [facility] 93.1 [facility] LABORATORY MCH 29.9 27.5 - [facility] 32.1 pg [facility] LABORATORY MCHC 34.2 32.0 - [facility] 35.7 gm/dL [facility]ORATORY Platelets 188 145 - 357 [facility] x10(3)/[facility] LABORATORY RDWSD 45.1 (H) 36.0 - [facility]0 [facility] LABORATORY RDWCV 14.3 (H) 11.4 - [facility] 13.8 % [facility] LABORATORY MPV 9.4 7.6 - 12.9 [facility] LABORATORY nRBC % Auto 0.0 % [facility] LABORATORY nRBC Abs Auto 0.000 0.000 - [facility] 0.000 [facility] x10(3)/[facility] LABORATORY Specimen Anatomical Collection Method Collection Time Receive d Time (Source) Location / / Volume Laterality Blood specimen 07/07/2017 5:15 AM 017 5:34 (specimen) EST AM EST Resulting Agency Comment Spec In Lab Daphne Shahid MD HEMATOLOGY ORDERABLES Performing Organization Address City/[facility]/ZIP [place] [address] (ABNORMAL) APTT (07/07/2017 5:15 [...] City/[facility]/ZIP [place] [address] Magnesium (07/07/2017 5:15 AM EST) athologist Signature Magnesium 0.94 0.69 - 1.07 [facility] mmol/L [facility] LABORATORY Specimen Anatomical Collection Method Collection Time Receive d Time (Source) Location / / Volume Laterality Blood specimen 07/07/2017 5:15 AM 017 5:34 (specimen) EST AM EST Resulting Agency Comment Spec In Lab Daphne Shahid MD CHEMISTRY ORDERABLES Performing Organization Address City/[facility]/ZIP [place] [address] (ABNORMAL) Basic Metabolic Panel (non-fasting) (07/07/2017 5:15 AM EST) athologist Signature Glucose Lvl 203 (H) 65 - 199 [facility] mg/dL [facility] LABORATORY [...] or in patients with acute kidney failure. [email or web address] Specimen Anatomical Collection Method Collection Time Receive d Time (Source) Location / / Volume Laterality Blood specimen 07/07/2017 5:15 AM 017 5:34 (specimen) EST AM EST Resulting Agency Comment Spec In Lab Daphne Shahid MD CHEMISTRY ORDERABLES Performing Organization Address City/State/[place] [address] (ABNORMAL) Cardiac Enzymes (LEB/CGP) (07/07/2017 5:15 AM EST) athologist Signature Troponin-T 2.07 (H) 0.00 - [facility] 0.00 ng/mL [facility] [...] additional sample may be indicated. Reference: Third [place] Definition of Myocardial Infarction. Journal of the [place] [employer] 2012;60:1581-98 CK, Total 88 0 - 200 unit/L [facility] LABORATORY Specimen Anatomical Collection Method Collection Time Receive d Time (Source) Location / / Volume Laterality Blood specimen 07/07/2017 5:15 AM 017 5:34 (specimen) EST AM EST Resulting Agency Comment Spec In Lab Daphne Shahid MD CHEMISTRY ORDERABLES Performing Organization Address City/State/[place] [address] POCT Glucose (07/07/2017 5:01 AM EST) P athologist Signature POC Glucose 182 65 - 199 [facility] mg/dL [facility] LABORATORY [...] Address City/State/ZIP Code Phon e Number [address] POCT Glucose (07/07/2017 4:08 AM EST) P athologist Signature POC Glucose 199 65 - 199 [facility] mg/dL [facility] LABORATORY [...] City/[facility]/ZIP Code Phon e Number [address] POCT Glucose (07/07/2017 3:03 AM EST) athologist Signature POC Glucose 188 65 - 199 [facility] mg/dL [facility] LABORATORY [...] Organization Address City/State/ZIP [place] [address] (ABNORMAL) POCT Glucose (07/07/2017 2:08 AM EST) athologist Signature POC Glucose 200 (H) 65 - 199 [facility] mg/dL [facility] LABORATORY [...] Organization Address City/State/ZIP [place] [address] (ABNORMAL) POCT Glucose (07/07/2017 1:31 AM EST) P athologist Signature POC Glucose 209 (H) 65 - 199 [facility] mg/dL [facility] LABORATORY [...] Organization Address City/State/ZIP [place] [address] XR Chest PA or [...] Signature POC Glucose 161 65 - 199 [facility] LABORATORY [...] City/[facility]/ZIP Code Phon e Number [address] (ABNORMAL) APTT (07/07/2017 12:00 AM EST) athologist [facility] PTT 103 (H) 25 - 35 sec [...] Organization Address City/State/ZIP [place] [address] POCT Glucose (07/06/2017 9:55 PM EST) athologist Signature POC Glucose 109 65 - 199 [facility] mg/dL [facility] LABORATORY [...] Address City/State/ZIP Code Phon e Number [address] POCT Glucose (07/06/2017 9:04 PM EST) athologist Signature POC Glucose 120 65 - 199 [facility] mg/dL [facility] LABORATORY [...] Organization Address City/State/ZIP [place] [address] POCT Glucose (07/06/2017 7:45 PM EST) athologist Signature POC Glucose 158 65 - 199 [facility] mg/dL [facility] LABORATORY [...] City/[facility]/ZIP [place] [address] Potassium (07/06/2017 7:40 PM EST) athologist Signature Potassium 3.9 3.5 - 5.0 [facility] mmol/L [facility] LABORATORY [...] Organization Address City/State/[place] [address] (ABNORMAL) Cardiac Enzymes (LEB/CGP) (07/06/2017 7:40 PM EST) athologist Signature Troponin-T 2.27 (H) 0.00 - [facility] 0.00 ng/mL [facility] [...] additional sample may be indicated. Reference: Third [place] Definition of Myocardial Infarction. Journal of the [place] [employer] 2012;60:1581-98 CK, Total 93 0 - 200 unit/L [facility] LABORATORY Specimen Anatomical Collection Method Collection Time Receive d Time (Source) Location / / Volume Laterality Blood specimen 07/06/2017 7:40 PM 017 7:52 (specimen) EST PM EST Resulting Agency Comment Spec In Lab Daphne Shahid MD CHEMISTRY ORDERABLES Performing Organization Address City/State/ZIP [place] [address] (ABNORMAL) POCT Glucose (07/06/2017 7:13 PM EST) P athologist Signature POC Glucose 200 (H) 65 - 199 [facility] mg/dL [facility] LABORATORY [...] Address City/State/ZIP Code Phon e Number [address] (ABNORMAL) APTT (07/06/2017 6:15 [...] Organization Address City/State/ZIP [place] [address] (ABNORMAL) POCT Glucose (07/06/2017 6:03 PM EST) athologist Signature POC Glucose 236 (H) 65 - 199 [facility] mg/dL [facility] LABORATORY [...] Organization Address City/State/ZIP [place] [address] (ABNORMAL) POCT Glucose (07/06/2017 5:01 PM EST) P athologist Signature POC Glucose 235 (H) 65 - 199 [facility] mg/dL [facility] LABORATORY [...] City/[facility]/ZIP [place] [address] (ABNORMAL) POCT Glucose (07/06/2017 4:06 PM EST) athologist Signature POC Glucose 202 (H) 65 - 199 [facility] mg/dL [facility] LABORATORY [...] Organization Address City/State/ZIP [place] [address] POCT Glucose (07/06/2017 2:59 PM EST) P athologist Signature POC Glucose 178 65 - 199 [facility] mg/dL [facility] LABORATORY [...] City/[facility]/ZIP [place] [address] (ABNORMAL) Cardiac Enzymes (LEB/CGP) (07/06/2017 2:10 PM EST) P athologist Signature Troponin-T 2.34 (H) 0.00 - [facility] 0.00 ng/mL [facility] [...] additional sample may be indicated. Reference: Third [place] Definition of Myocardial Infarction. Journal of the [place] [employer] 2012;60:1581-98 CK, Total 101 0 - 200 unit/L [facility] LABORATORY Specimen Anatomical Collection Method Collection Time Receive d Time (Source) Location / / Volume Laterality Blood specimen 07/06/2017 2:10 PM 017 2:26 (specimen) EST PM EST Resulting Agency Comment Spec In Lab Daphne Shahid MD CHEMISTRY ORDERABLES Performing Organization Address City/[facility]/ZIP [place] [address] POCT Glucose (07/06/2017 2:08 PM EST) P athologist Signature POC Glucose 192 65 - 199 [facility] mg/dL [facility] LABORATORY [...] Address City/State/ZIP Code Phon e Number [address] POCT Glucose (07/06/2017 1:04 PM EST) athologist Signature POC Glucose 162 65 - 199 [facility] LABORATORY [...] Address City/State/ZIP Code Phon e Number [address] POCT Glucose (07/06/2017 12:05 PM EST) athologist Signature POC Glucose 196 65 - 199 [facility] mg/dL [facility] LABORATORY [...] Address City/State/ZIP Code Phon e Number [address] EKG 12 Lead (07/06/2017 12:00 PM EST) Component Value Ref Range Test Analysis Performed Pathologis t Method Time At Signature Ventricular rate 91 BPM MUSE SYSTEM Atrial Rate 91 BPM MUSE SYSTEM P-R Interval 140 ms MUSE SYSTEM QRS Duration 94 ms MUSE SYSTEM Q-T Interval 394 ms MUSE SYSTEM QTC Calculated 484 ms MUSE SYSTEM (Bezet) Calculated P [place] 36 degrees MUSE SYSTEM Calculated R [place] -19 degrees MUSE SYSTEM Calculated T [place] 104 degrees MUSE SYSTEM INTERPRETATION Normal sinus rhythm MUSE SYSTEM 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) ST & T wave abnormality, consider lateral ischemia Abnormal ECG When compared with ECG of 05-JUL-2017 20:39, No significant change was found Confirmed by MD Luci, Taurus Braun ([id number]) on 07/06/2017 5:07:33 PM Specimen Anatomical Collection Method Collection Time Receive d Time (Source) Location / / Volume Laterality 07/06/2017 12:00 07/06/2017 5:07 PM EST PM EST Daphne Shahid MD ECG ORDERABLES Performing Organization Address City/[facility]/ZIP Code Phon e Number MUSE SYSTEM ABORH Recheck Status (07/06/2017 12:00 PM EST) [facility] Method Time Signature ABORH Type Completed [facility] LABORATORY Specimen Anatomical Collection Method Collection Time Receive d Time (Source) Location / / Volume Laterality Blood specimen 07/06/2017 12:00 7 (specimen) PM EST 12:24 PM EST Resulting Agency Comment Spec In Lab Daphne Shahid MD BLOOD BANK ORDERABLES Performing Organization Address City/[facility]/ZIP [place] [address] Antibody screen (07/06/2017 12:00 PM EST) [facility] [employer] Method Time Signature Ab Screen Negative [facility] LABORATORY Expires at 07/09/2017 [facility] [id number] on: [facility] LABORATORY Specimen Anatomical Collection Method Collection Time Receive d Time (Source) Location / / Volume Laterality Blood specimen 07/06/2017 12:00 7 (specimen) PM EST 12:24 PM EST Resulting Agency Comment Spec In Lab Daphne Shahid MD BLOOD BANK ORDERABLES Performing Organization Address City/[facility]/ZIP Code Phon e Number [address] ABO/Rh Typing (07/06/2017 12:00 [...] Organization Address City/State/ZIP [place] [address] Prothrombin Time (07/06/2017 11:24 [...] City/[facility]/ZIP Code Phon e Number [place] [id number] (ABNORMAL) APTT (07/06/2017 11:24 [...] Address City/State/ZIP Code Phon e Number [address] POCT Glucose (07/06/2017 11:02 AM EST) athologist Signature POC Glucose 187 65 - 199 [place] mg/dL [facility] LABORATORY [...] Organization Address City/State/ZIP [place] [address] POCT Glucose (07/06/2017 10:18 AM EST) athologist Signature POC Glucose 193 65 - 199 [place] mg/dL [facility] LABORATORY [...] Organization Address City/State/ZIP Code [place] [address] POCT Glucose (07/06/2017 9:25 AM EST) athologist Signature POC Glucose 182 65 - 199 [place] mg/dL [facility] LABORATORY [...] City/[facility]/[place] [address] (ABNORMAL) Cardiac Enzymes (LEB/CGP) (07/06/2017 8:10 AM EST) athologist Signature Troponin-T 2.26 (H) 0.00 - [place] R[place] 0.00 ng/mL [facility] [...] additional sample may be indicated. Reference: Third [place] Definition of Myocardial Infarction. Journal of the [place] College of Cardiology 2012;60:1581-98 CK, Total 124 0 - 200 unit/L [facility] LABORATORY Specimen Anatomical Collection Method Collection Time Receive d Time (Source) Location / / Volume Laterality Blood specimen 07/06/2017 8:10 AM 017 8:23 (specimen) EST AM EST Resulting Agency Comment Spec In Lab Daphne Shahid MD CHEMISTRY ORDERABLES Performing Organization Address City/State/ZIP Code Phon e Number [place] Magnesium (07/06/2017 8:10 AM EST) athologist Signature Magnesium 0.84 0.69 - 1.07 [facility] mmol/L [facility] LABORATORY Specimen Anatomical Collection Method Collection Time Receive d Time (Source) Location / / Volume Laterality Blood specimen 07/06/2017 8:10 AM 017 8:21 (specimen) EST AM EST Resulting Agency Comment Spec In Lab Daphne Shahid MD CHEMISTRY ORDERABLES Performing Organization Address City/State/ZIP Code Phon e Number [address] (ABNORMAL) Basic Metabolic Panel (non-fasting) (07/06/2017 8:10 AM EST) athologist Signature Glucose Lvl 199 65 - 199 [facility] mg/dL [facility] LABORATORY [...] or in patients with acute kidney failure. [email or web address]/DHnkdep [email or web address]://[employer]/DHMCnkf Specimen Anatomical Collection Method Collection Time Receive d Time (Source) Location / / Volume Laterality Blood specimen 07/06/2017 8:10 AM 017 8:21 (specimen) EST AM EST Resulting Agency Comment Spec In Lab Daphne Shahid MD CHEMISTRY ORDERABLES Performing Organization Address City/[facility]/ZIP Code Phon e Number [address] POCT Glucose (07/06/2017 7:34 AM EST) athologist Signature POC Glucose 198 65 - 199 [facility] mg/dL [facility] LABORATORY [...] City/[facility]/ZIP Code Phon e Number [address] POCT Glucose (07/06/2017 7:03 AM EST) athologist Signature POC Glucose 181 65 - 199 [facility] LABORATORY [...] City/[facility]/ZIP Code Phon e Number [address] XR Chest PA or [...] Signature POC Glucose 172 65 - 199 [facility] mg/dL [facility] LABORATORY [...] Address City/State/ZIP Code Phon e Number [address] POCT Glucose (07/06/2017 5:08 AM EST) athologist Signature POC Glucose 154 65 - 199 [place] mg/dL [facility] LABORATORY [...] Address City/State/ZIP Code Phon e Number [address] POCT Glucose (07/06/2017 4:05 AM EST) athologist Signature POC Glucose 142 65 - 199 [place] mg/dL [facility] LABORATORY [...] Organization Address City/State/ZIP [place] [address] POCT Glucose (07/06/2017 3:00 AM EST) athologist Signature POC Glucose 116 65 - 199 [facility] RYAN mg/dL [facility] LABORATORY [...] City/[facility]/[place] [address] [facility] [address] Potassium (07/06/2017 2:20 AM EST) athologist Signature Potassium 3.9 3.5 - 5.0 [facility] mmol/L [facility] LABORATORY [...] City/[facility]/ZIP Code Phon e Number [address] Differential, Automated (07/06/2017 2:20 AM EST) athologist Signature Neutrophils % 72.9 % [facility] LABORATORY Neutr Abs (ANC) 5.53 1.70 - [facility] 6.10 [facility] x10(3)/[facility] LABORATORY Lymphocytes % 16.4 % [facility] LABORATORY Lymphocytes Abs 1.2 0.9 - 3.2 [facility] x10(3)/[facility] LABORATORY Monocytes % 9.4 % [facility] LABORATORY Monocyte Abs 0.7 0.3 - 0.9 [facility] x10(3)/[facility] LABORATORY Eosinophils % 0.5 % [facility] LABORATORY Eosinophils Abs 0.0 0.0 - 0.4 [facility] x10(3)/[facility] LABORATORY Basophils % 0.4 % [facility] LABORATORY Basophils Abs 0.0 0.0 - 0.1 [facility] x10(3)/[facility] LABORATORY Immature [...] - 0.04 x10(3)/[facility] LABORATORY Specimen Anatomical Collection Method Collection Time Receive d Time (Source) Location / / Volume Laterality Blood specimen 07/06/2017 2:20 AM 017 2:33 (specimen) EST AM EST Resulting Agency Comment Spec In Lab Daphne Shahid MD HEMATOLOGY ORDERABLES Performing Organization Address City/State/[place] [address] (ABNORMAL) Hemogram (07/06/2017 2:20 AM EST) Analysis Performed At Patho logist Time Signature WBC 7.6 4.0 - 9.5 [facility] x10(3)/[facility] LABORATORY RBC 4.52 (L) 4.58 - [facility] 5.54 [facility] x10(6)/[facility] LABORATORY Hemoglobin 13.4 (L) 13.7 - [facility]/dL [facility] LABORATORY Hematocrit 39.7 (L) 40.5 - [facility] 48.5 % [facility] LABORATORY MCV 87.8 82.9 - [facility] 93.1 [facility] LABORATORY MCH 29.6 27.5 - [facility] RYAN 32.1 pg [facility] LABORATORY MCHC 33.8 32.0 - [facility] 35.7 gm/dL [facility] LABORATORY Platelets 189 145 - 357 [facility] x10(3)/[facility] LABORATORY RDWSD 45.6 (H) 36.0 - [facility] 45[facility]0 [facility] LABORATORY RDWCV 14.3 (H) 11.4 - [facility] RYAN 13.8 % [facility] LABORATORY MPV 9.1 7.6 - 12.9 [facility] LABORATORY nRBC % Auto 0.0 % [facility] LABORATORY nRBC Abs Auto 0.000 0.000 - [place] DAV[place] 0.000 [facility] x10(3)/[facility] LABORATORY Specimen Anatomical Collection Method Collection Time Receive d Time (Source) Location / / Volume Laterality Blood specimen 07/06/2017 2:20 AM 017 2:33 (specimen) EST AM EST Resulting Agency Comment Spec In Lab Daphne Shahid MD HEMATOLOGY ORDERABLES Performing Organization Address City/State/ZIP Code Phon e Number [address] (ABNORMAL) APTT (07/06/2017 2:20 [...] City/[facility]/ZIP Code Phon e Number [address] POCT Glucose (07/06/2017 2:20 AM EST) P athologist Signature POC Glucose 115 65 - 199 [facility] mg/dL [facility] LABORATORY [...] Organization Address City/State/ZIP [place] [address] (ABNORMAL) Cardiac Enzymes (LEB/CGP) (07/06/2017 2:20 AM EST) P athologist Signature Troponin-T 2.13 (H) 0.00 - [place] 0.00 ng/mL [facility] [...] additional sample may be indicated. Reference: Third [place] Definition of Myocardial Infarction. Journal of the [place] College of Cardiology 2012;60:1581-98 CK, Total 129 0 - 200 unit/L [facility] LABORATORY Specimen Anatomical Collection Method Collection Time Receive d Time (Source) Location / / Volume Laterality Blood specimen 07/06/2017 2:20 AM 017 2:33 (specimen) EST AM EST Resulting Agency Comment Spec In Lab Daphne Shahid MD CHEMISTRY ORDERABLES Performing Organization Address City/State/[place] [address] (ABNORMAL) Hemoglobin A1c (07/06/2017 2:20 AM EST) Analysis Performed At Patho logist Time Signature Hemoglobin A1C 6.8 (H) 4.3 - 5.6 [facility] % [facility] LABORATORY Comment: Reference Range: 4.3 [...] S67-61 Est Avg Gluc See note mg/dL [place] [...] into estimated average glucose values. ??Diabetes Care 2008:31(8):5215-7927. Specimen Anatomical Collection Method Collection Time Receive d Time (Source) Location / / Volume Laterality Blood specimen 07/06/2017 2:20 AM 017 2:34 (specimen) EST AM EST Resulting Agency Comment Spec In Lab Daphne Shahid MD CHEMISTRY ORDERABLES Performing Organization Address City/State/[place] [address] (ABNORMAL) Lipid Panel (07/06/2017 2:20 AM EST) Patholo gist Method Time Signature Chol, Total 150 <=239 [place] mg/dL [facility] LABORATORY Triglycerides 129 <=199 [facility] mg/dL [facility] LABORATORY HDL 32 (L) >=40 [place] mg/dL [facility] LABORATORY LDL Cholesterol 92 <=190 [facility] mg/dL [facility] LABORATORY Chol/HDL Ratio 4.7 ratio [facility] LABORATORY Lipid See Note [place] Interpretation [facility] LABORATORY Comment: Lipid management should be guided by a p atient? s ASCVD risk, goals and preferences. ACC/AHA Guidelines recommend high intens ity statin if clinical ASCVD or LDL greater than or equal to 190 mg/dL. http://[employer]/NBL-AUY-Ujbktqdqd Adults aged 40-75 with LDL 70-189 mg/dL should have their 10 year ASCVD risk estimated with the ACC/AHA ASCVD risk es timator http://tools.acc.org/DALVY-Zdte-Kyqvneic r/ Statin should be discussed if risk [...] Organization Address City/State/ZIP [place] [address] POCT Glucose (07/06/2017 1:09 AM EST) P athologist Signature POC Glucose 121 65 - 199 [facility] mg/dL [facility] LABORATORY [...] Organization Address City/State/ZIP [place] [address] POCT Glucose (07/06/2017 12:06 AM EST) P athologist Signature POC Glucose 147 65 - 199 [place] mg/dL [facility] LABORATORY [...] Organization Address City/State/ZIP [place] [address] (ABNORMAL) POCT Glucose (07/05/2017 10:56 PM EST) P athologist Signature POC Glucose 200 (H) 65 - 199 [place] mg/dL [facility] LABORATORY [...] Organization Address City/State/ZIP [place] [address] (ABNORMAL) POCT Glucose (07/05/2017 10:05 PM EST) P athologist Signature POC Glucose 225 (H) 65 - 199 [place] mg/dL [facility] LABORATORY [...] Organization Address City/State/ZIP [place] [address] (ABNORMAL) POCT Glucose (07/05/2017 9:02 PM EST) P athologist Signature POC Glucose 301 (H) 65 - 199 [facility] mg/dL [facility] LABORATORY [...] Organization Address City/State/ZIP [place] [address] XR Chest PA or [...] 474 ms MUSE SYSTEM (Bezet) Calculated P [place] 50 degrees MUSE SYSTEM Calculated R [place] -28 degrees MUSE SYSTEM Calculated T [place] 90 degrees MUSE SYSTEM INTERPRETATION Sinus tachycardia [...] Neutr Abs (ANC) 9.08 (H) 1.70 - [facility] 6.10 [facility] x10(3)/[facility] L LABORATORY Lymphocytes % 7.0 % [facility] LABORATORY Lymphocytes Abs 0.7 (L) 0.9 - 3.2 [facility] x10(3)/[facility] LABORATORY Monocytes % 3.7 % [facility] LABORATORY Monocyte Abs 0.4 0.3 - 0.9 [facility] x10(3)/[facility] LABORATORY Eosinophils % 0.1 % [facility] LABORATORY Eosinophils Abs 0.0 0.0 - 0.4 [facility] x10(3)/[facility] LABORATORY Basophils % 0.2 % [facility] LABORATORY Basophils Abs 0.0 0.0 - 0.1 [facility] x10(3)/[facility] LABORATORY Immature Gran % 0.60 % [place] [...] Organization Address City/State/[place] [address] (ABNORMAL) Hemogram (07/05/2017 8:20 PM EST) Analysis Performed At Patho logist Time Signature WBC 10.3 (H) 4.0 - 9.5 [facility] x10(3)/[facility] LABORATORY RBC 4.64 4.58 - [facility] 5.54 [facility] x10(6)/[facility] LABORATORY Hemoglobin 14.1 13.7 - [facility] 16.5 gm/dL [facility] LABORATORY Hematocrit 40.8 40.5 - [facility] 48.5 % [facility] LABORATORY MCV 87.9 82.9 - [place] [facility] 93.1 [facility] LABORATORY MCH 30.4 27.5 - [place] 32.1 pg [facility] LABORATORY MCHC 34.6 32.0 - [place] 35.7 gm/dL [facility] LABORATORY Platelets 204 145 - 357 [facility] x10(3)/[facility] LABORATORY RDWSD 46.1 (H) 36.0 - [facility] 45.0 [facility] LABORATORY RDWCV 14.5 (H) 11.4 - [facility] RYAN 13.8 % [facility] LABORATORY MPV 9.7 7.6 - 12.9 [facility] LABORATORY nRBC % Auto 0.0 % [facility] LABORATORY nRBC Abs Auto 0.000 0.000 - [place] ZHAORYAN 0.000 [facility] x10(3)/[facility] LABORATORY Specimen Anatomical Collection Method Collection Time Receive d Time (Source) Location / / Volume Laterality Blood specimen 07/05/2017 8:20 PM 017 8:27 (specimen) EST PM EST Resulting Agency Comment Spec In Lab Daphne Shahid MD HEMATOLOGY ORDERABLES Performing Organization Address City/State/ZIP [place] [address] APTT (07/05/2017 8:20 PM [...] Organization Address City/State/ZIP [place] [address] (ABNORMAL) Cardiac Enzymes (LEB/CGP) (07/05/2017 8:20 PM EST) athologist Signature Troponin-T 2.11 (H) 0.00 - [place] 0.00 ng/mL [facility] [...] additional sample may be indicated. Reference: Third [place] Definition of Myocardial Infarction. Journal of the [place] [employer] 2012;60:1581-98 CK, Total 149 0 - 200 unit/L [facility] LABORATORY Specimen Anatomical Collection Method Collection Time Receive d Time (Source) Location / / Volume Laterality Blood specimen 07/05/2017 8:20 PM 017 8:27 (specimen) EST PM EST Resulting Agency Comment Spec In Lab Daphne Shahid MD CHEMISTRY ORDERABLES Performing Organization Address City/State/[place] [address] (ABNORMAL) Magnesium (07/05/2017 8:20 PM EST) P athologist Signature Magnesium 0.68 (L) 0.69 - 1.07 [facility] mmol/L [facility] LABORATORY Specimen Anatomical Collection Method Collection Time Receive d Time (Source) Location / / Volume Laterality Blood specimen 07/05/2017 8:20 PM 017 8:27 (specimen) EST PM EST Resulting Agency Comment Spec In Lab Daphne Shahid MD CHEMISTRY ORDERABLES Performing Organization Address City/State/[place] [address] (ABNORMAL) Basic Metabolic Panel (non-fasting) (07/05/2017 8:20 PM EST) P athologist Signature Glucose Lvl 321 (H) 65 - 199 [facility] mg/dL [facility] LABORATORY [...] or in patients with acute kidney failure. http://[employer]/DHnkdep [email or web address]://[employer]/DHMCnkf Specimen Anatomical Collection Method Collection Time Receive d Time (Source) Location / / Volume Laterality Blood specimen 07/05/2017 8:20 PM 017 8:27 (specimen) EST PM EST Resulting Agency Comment Spec In Lab Daphne Shahid MD CHEMISTRY ORDERABLES Performing Organization Address City/State/ZIP Code Phon e [place] [address] (ABNORMAL) POCT Glucose (07/05/2017 7:32 PM EST) P athologist Signature POC Glucose 296 (H) 65 - 199 [facility] mg/dL [facility] LABORATORY [...] Organization Address City/State/ZIP Code [place] [address] CARDIAC CATHETERIZATION (07/05/2017 6:47 PM EST) Anatomical Region Laterality Modality Other Specimen (Source) Anatomical Location Collection Method / Collectio n Time Received Time / Laterality Volume Narrative 07/05/2017 7:27 PM EST ?[facility] ? Cardiac Cathete rization/Intervention Report ? Patient Name: Natalya, Gregory ? Procedure Date: 07/05/2017 ? A #: [id number] ? Primary Physician: Clarisa, Jet T ? Case #: [id number] ? File Name: [id number] ? Catheterization Order Number: [id number] ? [facility] ? Final Report [place], [place] ? Patient Name: ? Gregory Natalya ?ID#: ?[id number] ? : ?1945 ? Procedure Date: ? 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 ? Jet Mckenna M.D. ? Electronically Signed by: Jet bunch M.D. ? Report Finalized: 07/05/2017 ??19:23 ? Report Last Ammended: 10/26/2017 ??10:29 ? Procedure Note Jet Mckenna MD - 10/26/2017Formatt ing of this note might be different from the original. 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 (Age): 1945(72y) Med Rec#: ? [id number] ?Sex: ?M ? Site Loc: ? [facility] ?Ht / Wt: ??173(cm)/86(kg) Pt. Loc: ?CCU ? BSA: ?2 Study Date: ?? 07/05/2017 ?Pt. Type: Inpatient Tape: ? Referring: Daphne Shahid ([id number]) Referring: MANDA ALCANTAR Reading: Blade Preston ([id number]) Chopper Feeder: Dayami Paula BA, [facility] [...] ion. ?There is no evidence of aortic colltete ve stenosis. ?There is no evidence of [...] E-wave Vmax ?0.8 ?m/sec ? MV deceleration tycl682 ?msec ? MV A-wave Vmax ?0.8 ?m/sec [...] ? Mid-Inferior ?Akinetic ? Mid-Inferoseptal ?Hypokinetic ? Patterson-Septal ? Akinetic ? Patterson-Anterior ? Hypokinetic ? Patterson-Lateral ?Hypokinetic ? Patterson-Inferior ? Akinetic ? Patterson-Tip ?Akinetic ? This report has been electronically sign ed by: _ Blade Preston MD ? 07/06/2017 08 :53:15 Images reviewed and interpretation verif ied [facility] Procedure Note Blade Preston MD - 07/06/2017Formatt ing of this note might be different from the original. Procedure: Transthoracic Echocardiogram Patient: NATALYA MCBRIDE(Age): [birth year]72y) Med Rec#: [id number] Sex: M Site Loc: [facility] Ht / Wt: 173(cm)/86(kg) Pt. Loc: CCU BSA: 2 Study Date: 07/05/2017 Pt. Type: Inpatie nt Tape: Referring: Daphne Shahid ([id number]) Referring: MANDA ALCANTAR Reading: Blade Preston ([id number]) Chopper Feeder: Dayami Paula BA, [facility] [...] MV E-wave Vmax 0.8 m/sec MV deceleration dbvt644 msec MV A-wave Vmax 0.8 m/sec MV [...] Hypokinetic Mid-Posterolateral Hypokinetic Mid-Inferior Akinetic Mid-Inferoseptal Hypokinetic Patterson-Septal Akinetic Patterson-Anterior Hypokinetic Patterson-Lateral Hypokinetic Patterson-Inferior Akinetic Patterson-Tip Akinetic This report has been electronically sign ed by: _ Blade Preston MD 07/06/2017 08:53:15 Images reviewed and interpretation verif ied [facility] Daphne Shahid MD ECHO ORDERABLES Differential, Automated (07/05/2017 4:55 PM EST) athologist Signature Neutrophils % 77.0 % [facility] LABORATORY Neutr Abs (ANC) 5.26 1.70 - [facility] 6.10 [facility] x10(3)/[facility] LABORATORY Lymphocytes % 13.3 % [facility] Lymphocytes Abs 0.9 0.9 - 3.2 [facility] x10(3)/[facility] LABORATORY Monocytes % 8.2 % [facility] Monocyte Abs 0.6 0.3 - 0.9 [facility] x10(3)/[facility] LABORATORY Eosinophils % 0.7 % [facility] Eosinophils Abs 0.0 0.0 - 0.4 [facility] x10(3)/[facility] LABORATORY Basophils % 0.4 % [facility] Basophils Abs 0.0 0.0 - 0.1 [facility] x10(3)/[facility] LABORATORY Immature [...] - 0.04 x10(3)/[facility] LABORATORY Specimen Anatomical Collection Method Collection Time Receive d Time (Source) Location / / Volume Laterality Blood specimen 07/05/2017 4:55 PM 017 5:24 (specimen) EST PM EST Resulting Agency Comment Spec In Lab Daphne Shahid MD HEMATOLOGY ORDERABLES Performing Organization Address City/State/[place] [address] (ABNORMAL) Hemogram (07/05/2017 4:55 PM EST) Analysis Performed At Patho logist Time Signature WBC 6.8 4.0 - 9.5 [facility] x10(3)/[facility] LABORATORY RBC 4.67 4.58 - [facility] 5.54 [facility] x10(6)/[facility] LABORATORY Hemoglobin 14.0 13.7 - [facility]/dL [facility] Hematocrit 41.0 40.5 - [facility] 48[facility] % [facility]ORATORY MCV 87.8 82.9 - [facility] 93[facility]1 [facility] LABORATORY MCH 30.0 27.5 - [facility] R[place]AN 32.1 pg [facility] LABORATORY MCHC 34.1 32.0 - [facility] [place] 35.7 gm/dL [facility] LABORATORY Platelets 197 145 - 357 [facility] x10(3)/[facility] LABORATORY RDWSD 46.4 (H) 36.0 - [facility] [place] 45.0 [facility] LABORATORY RDWCV 14.5 (H) 11.4 - [facility] [place] 13.8 % [facility] LABORATORY MPV 9.7 7.6 - 12.9 [facility] LABORATORY nRBC % Auto 0.0 % [facility] nRBC Abs Auto 0.000 0.000 - [facility] 0.000 [facility] x10(3)/[facility] LABORATORY Specimen Anatomical Collection Method Collection Time Receive d Time (Source) Location / / Volume Laterality Blood specimen 07/05/2017 4:55 PM 017 5:24 (specimen) EST PM EST Resulting Agency Comment Spec In Lab Daphne Shahid MD HEMATOLOGY ORDERABLES Performing Organization Address City/State/[place] [address] (ABNORMAL) Cardiac Enzymes (LEB/CGP) (07/05/2017 4:55 PM EST) athologist Signature Troponin-T 1.69 (H) 0.00 - [facility] 0.00 ng/mL [facility] [...] additional sample may be indicated. Reference: Third [place] Definition of Myocardial Infarction. Journal of the [place] [employer] 2012;60:1581-98 CK, Total 191 0 - 200 unit/L [facility] Specimen Anatomical Collection Method Collection Time Receive d Time (Source) Location / / Volume Laterality Blood specimen 07/05/2017 4:55 PM 017 5:56 (specimen) EST PM EST Resulting Agency Comment Spec In Lab Daphne Shahid MD CHEMISTRY ORDERABLES Performing Organization Address City/[facility]/ZIP [place] [address] (ABNORMAL) pro-Brain Natriuretic Peptide (07/05/2017 4:55 PM EST) athologist Signature ProBNP 1,598 (H) <=125 [facility] [place] pg/mL [facility] LABORATORY Specimen Anatomical Collection Method Collection Time Receive d Time (Source) Location / / Volume Laterality Blood specimen 07/05/2017 4:55 PM 017 5:24 (specimen) EST PM EST Resulting Agency Comment Spec In Lab Daphne Shahid MD CHEMISTRY ORDERABLES Performing Organization Address City/[facility]/ZIP Code Phon e Number [address] Magnesium (07/05/2017 4:55 PM EST) athologist Signature Magnesium 0.78 0.69 - 1.07 [facility] mmol/L [facility] LABORATORY Specimen Anatomical Collection Method Collection Time Receive d Time (Source) Location / / Volume Laterality Blood specimen 07/05/2017 4:55 PM 017 5:24 (specimen) EST PM EST Resulting Agency Comment Spec In Lab Daphne Shahid MD CHEMISTRY ORDERABLES Performing Organization Address City/[facility]/ZIP [place] [address] (ABNORMAL) Basic Metabolic Panel (non-fasting) (07/05/2017 4:55 PM EST) athologist Signature Glucose Lvl 230 (H) 65 - 199 [facility] mg/dL [facility] LABORATORY [...] or in patients with acute kidney failure. http://[employer]/DHnkdep http://[employer]/[facility] TULSAnkf Specimen Anatomical Collection Method Collection Time Receive d Time (Source) Location / / Volume Laterality Blood specimen 07/05/2017 4:55 PM 017 5:24 (specimen) EST PM EST Resulting Agency Comment Spec In Lab Daphne Shahid MD CHEMISTRY ORDERABLES Performing Organization Address City/[facility]/ZIP [place] [address] (ABNORMAL) APTT (07/05/2017 4:55 [...] Organization Address City/State/ZIP [place] [address] (ABNORMAL) POCT Glucose (07/05/2017 4:53 PM EST) P athologist Signature POC Glucose 208 (H) 65 - 199 [facility] mg/dL [facility] LABORATORY [...] Address City/State/ZIP Code Phon e Number [address] EKG 12 Lead (07/05/2017 4:32 PM EST) Component Value Ref Range Test Analysis Performed Pathologis t Method Time At Signature Ventricular rate 97 BPM MUSE SYSTEM Atrial Rate 97 BPM MUSE SYSTEM P-R Interval 148 ms MUSE SYSTEM QRS Duration 96 ms MUSE SYSTEM Q-T Interval 364 ms MUSE SYSTEM QTC Calculated 462 ms MUSE SYSTEM (Bezet) Calculated P [place] 48 degrees MUSE SYSTEM Calculated R [place] -33 degrees MUSE SYSTEM Calculated T [place] 98 degrees MUSE SYSTEM INTERPRETATION Normal sinus [...]
Routine documented in this encounter Care Teams Echocardiograph Technician Relationship Specialty Start Date End Date Lovely Vicente MD PCP - General 04/16/[address] [place] [address] [address] [place] [address] documented as of this encounter
--- OUTSIDE RECORDS SUMMARY | 2022-05-11 08:50 | XMS_ITS | Encounter Summary ---
:1945 [place] [address] Care Team Providers Name Role Phone Lovely Vicente MD Primary Care Provider Reason for Visit Auth/Cert Specialty Diagnoses / Procedures Referred By Contact Refer red To Contact Diagnoses STEMI (ST elevation myocardial infarction) NSTEMI STEMI Procedures CARDIAC CATHETERIZATION NAYE IPI Referral ID Status Reason Start Date Expiration Date Visits Requ ested Visits Authorized [id number] 1 1 Encounter Details Date Type Department Care Team Description 07/07/2017 Anesthesia Event Main Operating Room Yifan Jaime MD [facility] [place] [address] [facility] Ginny Murray MD [facility] [place] [address] [facility] [place] [address] Anesthesia Record Procedure Summary Procedure Name [...] 2342 LDA Cath/EP Sheath 07/05/17; 0606; 8 Nicaraguan 07/05/17 0606 by [id number] by (Fr); Right; Femoral [place], Yane Cook, RN PIV 07/05/17; 1720; median 07/05/17 1720 by 07/11/17 2355 by vein (underside of arm), Prior, Yanet Maza, Angela Mccurdy, left; 18 gauge; removed SUPERVISOR INSTANT POTATO PROCESSING per policy/procedure; 07/11/17; 2355 Intra-Aortic Balloon 07/05/17; [...] Miller, Carrie L, Type: Cuffed; ETT Size: MARKETING GRAPHICS SPECIALIST 8 mm; Santiago Blade: 2; Notes: Asleep, [...] Murray MD - 07/08/2017 5:08 PM EST [facility] Department of Anesthesiology Post-procedure Note Patient: Don Fatima Procedure Summary Date Anesthesia Start Anesthesia Stop Room / Location 07/07/17 1335 1836 [facility] OR [facility] MAIN OR Procedure Diagnosis Surgeon Responsible Provider @CABG, USING ARTERIAL GRAFT;SINGLE ARTERIAL GRAFT (WRVU 33.75) (N/A Chest); @CABG, TWO VENOUS GRAFTS & ARTERIAL GRAFT (WRVU 7.93) (N/A Chest); ENDOSCOPIC HARVEST VEIN(S) FOR CABG (WRVU 0.31) (Right Leg) (CAD) Yuan Freitas MD Hartman, Gregg S, MD All Anesthesia Providers: Anesthesiologist: Yifan Perez MD Triage Clinician: Ginny Murray MD Most Recent Vitals: 07/08/17 [...] performed by Manny Mcknight MD at [facility] MAIN OR ??? PRO COLONOSCOPY, REMV LESN, SNARE 01/16/2014 COLONOSCOPY, POLYPECTOMY, REMOVAL LESION BY SNARE performed by Nohemi Jaimes MD at [facility] ENDOSCOPY ??? PRO THYROIDECTOMY 03/28/2013 THYROIDECTOMY, TOTAL OR COMPLETE performed by Manny Mcknight MD at [facility] MAIN OR Social History Substance Use [...] MD [facility] [place], [place] [address] (Wo rk) 05/28/2022 Laboratory Appointment Lab 05/28/2022 Office Visit Cardiology Zulma Dolan [place] [facility] [place] [address] Liz Poole PA [facility] [place] [address] 06/10/2022 Office Visit Dermatology Laura Scherer MD [facility] [address], [place] [address] (Wo rk) documented as of [...] mg documented in this encounter Care Teams Stamp Collector Relationship Specialty Start Date End Date Lovely Vicente MD PCP - General 04/16/[address] [place] [address] documented as of this encounter
--- OUTSIDE RECORDS SUMMARY | 2022-05-11 08:51 | XMS_ITS | Encounter Summary ---
:1945 Author Organization [facility] [place] [address] Care Team Providers Name Role Phone Lovely Vicente MD Primary Care Provider Reason for Visit Reason Comments Follow-up Encounter Details Date Type Department Care Team Description 06/03/2017 Office Visit Dermatology at [facility] benign nevi; Abdelrahman HOOPER MD History of melanoma; [address] [facility] History of dysplastic nevus; [place] [address] Skin exam for malignant neoplasm [phone] [facility] [place], [place] [address] Social History Tobacco Use [...] MD [facility] [place], [place] [address] (Wo rk) 05/28/2022 Laboratory Appointment Lab 05/28/2022 Office Visit Cardiology Zulma Dolan MD [facility] [place] [address] [facility] [place] [address] 06/10/2022 Office Visit Dermatology Laura Scherer MD [facility] [address] [place], [place] [address] (Wo rk) documented as [...] skin documented in this encounter Care Teams Yard Jockey Relationship Specialty Start Date End Date Lovely Vicente MD PCP - General 04/16/15 [facility] [address] [place] [address] documented as of this encounter
--- OUTSIDE RECORDS SUMMARY | 2022-05-11 08:51 | XMS_ITS | Encounter Summary ---
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 I advised her Don's pathology [...] back. She can be reached back at [phone] documented in this encounter Plan of Treatment Upcoming Encounters Date Type Specialty Care Team Description 05/28/2022 Appointment Cardiology Zulma Dolan MD [facility] [address] [place], [place] [address] (Wo rk) 05/28/2022 Laboratory Appointment Lab 05/28/2022 Office Visit Cardiology Zulma Dolan MD [facility] [place] [address] Liz Poole PA [facility] [place] [address] 06/10/2022 Office Visit Dermatology Laura Scherer MD [facility] [address] [place], [place] [address] (Wo rk) documented as of this encounter Visit Diagnoses Not on filedocumented in this encounter Care Teams Wardrobe Custodian Relationship Specialty Start Date End Date Lovely Vicente MD PCP - General 04/16/[address] [place] [address] documented as of this encounter
--- OUTSIDE RECORDS SUMMARY | 2022-05-11 08:51 | XMS_ITS | Encounter Summary ---
:1945 Author Organization [facility] [place] [address] Care Team Providers Name Role Phone Lovely Vicente MD Primary Care Provider Reason for Visit Reason Onset Date Comments Medication Refill 12/24/2016 Encounter Details Date Type Department Care Team Description 12/24/2016 Refill Endocrinology at [facility] Luz Stallings MD [facility] [place] [address] ENDOCRINOLOGY DEPT [phone] [place], [place] [address] (Wo rk) Social History Tobacco [...] MD [facility] [place] [address] [place] [address] (Wo rk) 05/28/2022 Laboratory Appointment Lab 05/28/2022 Office Visit Cardiology Zulma Dolan MD [facility] [place] [address] Liz Poole PA [facility] [place] [address] 06/10/2022 Office Visit Dermatology Laura Scherer MD [facility] [address] [place], [place] [address] (Wo rk) documented as of this encounter Visit Diagnoses Not on filedocumented in this encounter Care Teams Director Of Product Design Relationship Specialty Start Date End Date Lovely Vicente MD PCP - General 04/16/[address] [place], [place] [address] documented as of this encounter
--- OUTSIDE RECORDS SUMMARY | 2022-05-11 08:51 | XMS_ITS | Encounter Summary ---
:1945 [place] [address] Care Team Providers Name Role Phone Lovely Vicente MD Primary Care Provider Reason for Visit Auth/Cert Specialty Diagnoses / Procedures Referred By Contact Refer red To Contact Diagnoses STEMI (ST elevation myocardial infarction) NSTEMI STEMI Procedures CARDIAC CATHETERIZATION NAYE IPI Referral ID Status Reason Start Date Expiration Date Visits Requ ested Visits Authorized [id number] 1 1 Encounter Details Date Type Department Care Team Description 07/05/2017 Surgery Wind Farm Electrical Systems Designer Jet Guan, CARDIAC CATHETERIZATION [facility] [place] [address] CARDIOLOGY DEPT. [phone] [place], [place] [address] (Wo rk) Social History Tobacco [...] this encounter Discharge Summaries Martha Teague S, ELECTRICAL ASSEMBLY SUPERVISOR - 07/14/2017 9:38 AM EST Inpatient - Discharge Summary Patient Name: Gregory Hoang Patient Age: 72 y.o. Birthdate: 1945 Language: Belgian Race: White Ethnicity: Not nor Admit Date: [...] , @ 1:20p Patient to follow-up with Dumb Waiter Operator/heart failure team in one week. An appointment will be made for you. You may call [phone] Patient to follow-up with Cardiac Surgery, Dr. Yuan Webber, in ~ 4 weeks with CXR, EKG. Inpatient Provider Contact Information: [facility] Section of Cardiac Surgery [facility] [address] FAX [phone] Discharge Diagnoses (Hospital Problems) Primary Diagnoses: CAD [...] SETUP performed by Manny Mcknight MD at [facility] OR ??? PRO CABG, ARTERIAL, SINGLE N/A 07/07/2017 @CABG, USING ARTERIAL GRAFT;SINGLE ARTERIAL GRAFT (WRVU 33.75) performed by Yuan Webber MD at [facility] OR ??? PRO CABG, ARTERY-VEIN, TWO N/A 07/07/2017 @CABG, TWO VENOUS GRAFTS & ARTERIAL GRAFT (WRVU 7.93) performed by Yuan Webber MD at [facility] OR ??? PRO COLONOSCOPY, REMV LESN, SNARE 01/16/2014 COLONOSCOPY, POLYPECTOMY, REMOVAL LESION BY SNARE performed by Nohemi Jaimes MD at [facility] ENDOSCOPY ??? PRO ENDOSCOPY W/VIDEO-ASST VEIN HARVEST, CABG Right 07/07/2017 ENDOSCOPIC HARVEST VEIN(S) FOR CABG (WRVU 0.31) performed by Yuan Webber MD at [facility] OR ??? PRO THYROIDECTOMY 03/28/2013 THYROIDECTOMY, TOTAL OR COMPLETE performed by Manny Mcknight MD at [facility] OR Prior To Admission Medications Prescriptions Prior to Admission Medication Sig Dispense Refill Last Dose ??? levothyroxine (SYNTHROID) 175 mcg Tablet Take 1 tablet by mouth daily. 90 tablet 3 07/05/2017 [id number] ??? ascorbic acid, vitamin C, (VITAMIN C) [...] Hospital Course: Gregory Hoang was admitted to [facility] on 07/05/2017 via the Cardiology Service. During his hospital course, he was taken emergently to the wetlands conservation laborer for an ongoing STEMI. An [...] not take or discontinue any prescription or rqwb-vhm-ycpbaij medications without asking your doctor or pharmacist [...] day to have your insulin doses adjusted. [facility] Endocrine clinic office Discharge Instructions: Call your doctor if: You have a fever of greater than 101 degrees, shaking chills, if you develop redness or drainage from your incision sites, or if you have questions. Please call your surgeon's office if you have any discharge or drainage from your chest incision. Your surgeon, Dr. Yuan Webber and/or the Cardiac Surgery Physician Cnc Manager Team may be reached at . [...] Dr. Yuan Webber. You may use a [place] Track or treadmill but avoid any pulling [...] with the surgeon. Do not ride motorcycles, [employer] tractors or horses. Avoid the use of [...] should resume a low fat, low cholesterol, Syrian Heart Association Diet/Diabetic diet. Driving: No driving [...] , @ 1:20p Patient to follow-up with Dumb Waiter Operator/heart failure team in one week. Appointment will be made for you. You may call [phone] Patient to follow-up with Cardiac Surgery, Dr. Yuan Webber, in ~ 4 weeks with CXR, EKG. Cardiac Rehabilitation: Gregory Hoang was seen today regarding participation in the outpatient Phase 2 Cardiac Rehabilitation at [facility]. The patient agrees to a referral to this program. The referral will be sent at discharge and the patient should be contacted by the Program within 1- 2 weeks from discharge. ?? Future Appointments and Orders Future Appointments Provider Department Dept Phone 09/07/2017 3:00 PM LAB, THREE L Lab 3L [facility] [phone] 09/07/2017 4:00 PM Luz Prescott MD Endocrinology at [place] [phone] Future Orders Complete By Expires EKG 12 Lead [EKG1 Custom] 08/14/2017 02/13/2018 Process Instructions: Scheduling Instructions: Questions: Which DH location will this be performed?: [place] Is a rhythm strip needed?: No If EKG Reason is Pre-op Evaluation, indicate diagnosis for surgery.: XR Chest PA & Lateral (Generic) [[id number] Custom] 08/14/2017 02/13/2018 Process Instructions: Scheduling Instructions: Questions: Where will study be performed?: [place] Portable exam?: Reason for exam and clinical history: CABG x 3 Other pertinent information: Stat read required?: Date of injury if applicable: Requested Time: Referral to Cardiac Rehab [QOP885 Custom] As directed Process Instructions: If no progress note charted, please enter Clinical details in comments. Scheduling Instructions: Questions: My question or request is: s/p CABG. Cardiac rehab at [facility] Referral to Home Health - at DISCHARGE [[id number] CPT(R)] As directed Process Instructions: Scheduling Instructions: Comments: DOCUMENTATION FOR VNA SERVICES (INCLUDING THOSE PATIENTS WITH MEDICARE COVERAGE REQUIRING HOME VNA SERVICES AND/OR HOSPICE SERVICES) PATIENT'S LOCATION: Gregory Hoang [address] [place] [address] [place] [address] (home) Telephone Information: Exceptional Student Education Teacher's Name: self In discussion with the attending physician, it is certified that this patient is under their care and that they, or a Nurse Practitioner, or Physician Cnc Manager who is working directly with them, [...] (Central Intake [facility] [place] [employer]-is in [place]) PHONE: [phone] FAX: [phone] RN orders: Cardiopulmonary assessment, incisional assessment, assess vital signs, assessment of rehab progress, medication management and effectiveness, home safety evaluation. Please draw INR if indicated and send result to:Dr Vicente [phone] PT ORDERS: Continue rehab for endurance, gait stability and strength with mobility and transfers. Home safety evaluation. Home exercise program if appropriate. Start of Care Date:24-48 hours after discharge SPECIAL INSTRUCTIONS: For any follow up questions, needs, or issues please call the Cardiac Surgery Office at [phone] FOR MEDICARE ONLY: (please delete this section [...] OR AFTER 07/17/2017 Signed: Martha Teague APRN [facility] Section of Cardiac Surgery [facility] [address] FAX [phone] Date: 07/14/2017 CC: MD Ivania Cr Betsy, PA [address] [place] [phone] documented in this encounter Discharge Instructions Discharge [...] day to have your insulin doses adjusted. [facility] Endocrine clinic office Patient InstructionsStMartha mcdonald [...] not take or discontinue any prescription or ywxw-ghj-xvmurgx medications without asking your doctor or pharmacist [...] day to have your insulin doses adjusted. [facility] Endocrine clinic office ? Discharge Instructions: [...] Yuan Webber and/or the Cardiac Surgery Physician Cnc Manager Team may be reached at . [...] Dr. Yuan Webber. You may use a [place] Track or treadmill but avoid any pulling [...] with the surgeon. Do not ride motorcycles, [employer]'s tractors or horses. Avoid the use of [...] should resume a low fat, low cholesterol, Syrian Heart Association Diet/Diabetic diet. ?? Driving: No [...] @ 1:20p ?? Patient to follow-up with Dumb Waiter Operator/heart failure team in one week. An appointment has been made for you, you can call [phone] ?? Patient to follow-up with Cardiac Surgery, Dr. Yuan Webber, in ~ 4 weeks with CXR, EKG. ? Cardiac Rehabilitation: Gregory Hoang??was seen today regarding participation in the outpatient Phase 2 Cardiac Rehabilitation at [facility]. ?? The patient agrees to a referral to this program.? The referral will be sent at discharge and the patient should be contacted by the Program within 1- 2 weeks from discharge. ? Future Appointments and Orders Future Appointments Provider Department Dept Phone ?? 09/07/2017 3:00 PM LAB, THREE L Lab 3L [facility] [phone] ?? 09/07/2017 4:00 PM Luz Prescott MD Endocrinology at [place] [phone] Future Orders Complete By Expires ?? EKG 12 Lead [EKG1 Custom] 08/14/2017 02/13/2018 ?? Process Instructions: ? Scheduling Instructions: ? Questions: ? Which location will this be performed?: [place] ?? Is a rhythm strip needed?: No ?? If EKG Reason is Pre-op Evaluation, indicate diagnosis for surgery.: ?? XR Chest PA & Lateral (Generic) [[id number] Custom] 08/14/2017 02/13/2018 ?? Process Instructions: ? Scheduling Instructions: ? Questions: ? Where will study be performed?: [facility] ?? Portable exam?: ?? Reason for exam and clinical history: CABG x 3 ?? Other pertinent information: ?? Stat read required?: ?? Date of injury if applicable: ?? Requested Time: ?? Referral to Cardiac Rehab [[id number] Custom] As directed ? Process Instructions: ?? If no progress note charted, please enter Clinical details in comments. ?? Scheduling Instructions: ? Questions: ? My question or request is: s/p CABG. Cardiac rehab at [facility] ? Arrangements for VNA/home care: As [...] RN - 07/14/2017 2:34 PM EST The patient/signs sales representative has been provided a list of Home Health Agencies/DME vendors which serve their preferred geographic area. A letter describing our affiliations was reviewed with them and theywere educated about their right to choose where referrals are placed. Patient requests referral to [facility]. PHONE: [phone] FAX: [phone] Expected date of discharge: 07/14 Referral routed to the Clinical Information Systems Director for matching with agency/vendor and to [...] day to have your insulin doses adjusted. [facility] Endocrine clinic office Kathie Carrera APRN [facility] Endocrinology Diabetes Management Pager [phone] 20 minutes of this 35 minute visit was spent with the patient in counseling on diabetes and treatment plan, reviewing all glucose and insulin data as well as relevant laboratory results with the patient, and coordination of care on the inpatient unit including nursing and primary team. Zulma Andres RN - 07/14/2017 10:30 AM EST The patient/signs sales representative has been provided a list of Home Health Agencies/DME vendors which serve their preferred geographic area. A letter describing our affiliations was reviewed with them and theywere educated about their right to choose where referrals are placed. Patient requests referral to : Yasmani Munguia ([facility] [place] [facility]-is in [place]) PHONE: [phone] FAX: [phone]. Expected date of discharge: 07/14/17 Referral routed to the Clinical Information Systems Director for matching with agency/vendor and to [...] hours. If BG remains greater than 240, eoakcz19 units (no more than three times) &??call [...] Will continue to follow Katerin Azul APRN [facility] Endocrinology Diabetes Management Pager [phone] 15 minutes of this 25 minute visit [...] of infiltration/extravasation Discussed plan of care with GRADER MARKER and RN. Elevate exrtemity and apply intermittent Warm compresses. Name of MD contacted Dr. Shaw Brown 07/13/2017 @ 0655 Name of RN contacted Ael Rangel RN Name of Pharmacist if consulted NA Name of Plastics MD ( if consulted) NA (Mandatory photo for infiltrations/ extravasations scoring a stage 2 or greater, but recommended forstage 1)( include measuring tape and identifier in the photo) SHEEP SHEARER CARING FOR THIS PATIENT WILL CONTINUE TO [...] measuring tape and identifier in the photo) SHEEP SHEARER CARING FOR THIS PATIENT WILL CONTINUE TO [...] to both infiltrates addressed by this teletypewriter installer.All of Mr. Hoang's responses were entirely appropriate. Images of infiltrates attached here. Martha Sharp APRN - 07/13/2017 8:01 AM EST Cardiac Surgery Progress Note: ID: [id number] 72 year old male POD#6 s/p CABGx3 [...] discharge. ?? I have met with the patient/signs sales representative to discuss discharge planning needs. I have provided the [facility], Office of Care Management letter from the [employer] pertaining to rehab referrals. I have also provided a letter describing our affiliations within the [facility] and educated them about their right to choose where referrals are placed. ?? I reviewed the different levels of rehab including SNF, swing, acute and LTAC with the patient/signs sales representative. ?? The patient/signs sales representative has been provided a list of facilities within their preferred geographic area. ?? I have requested that the patient/signs sales representative provide at least three choices for referral. ?? The patient/signs sales representative have requested referrals to: ?? 1. . ?? 2. [facility] ?? 3. More to be entered ?? Expected date of discharge: 07/14 Note routed to Clinical Information Systems Director who will communicate referrals to facilities [...] hours. If BG remains greater than 240, xsvcup93 units (no more than three times) & [...] Will continue to follow Katerin Azul APRN [facility] Endocrinology Diabetes Management Pager [phone] 20 minutes of this 35 minute visit was spent with the patient in counseling on diabetes and treatment plan, reviewing all glucose and insulin data as well as relevant laboratory results with the patient, and coordination of care on the inpatient unit including nursing and primary team. Makayla Stevenson APRN - 07/12/2017 9:52 AM EST Cardiac Surgery Progress Note: ID: [id number] 72 year old male POD#5 s/p CABGx3 [...] arrived from [facility]. VSS. MSI dressing pulled off with fresh [...] hours. If BG remains greater than 240, dowhyd19 units (no more than three times) & [...] AM EST Cardiac Surgery Progress Note: ID: [id number] 72 year old male POD#4 s/p CABGx3 [...] hours. If BG remains greater than 240, lalrpt20 units (no more than three times) & [...] AM EST Cardiac Surgery Progress Note: ID: [id number] 72 year old male POD#3 s/p CABGx3 [...] Gas) No results found for: PHART, PO2ART, CND9MWL Assessment/Plan: 72 year old male POD#3 s/p [...] Mami Thao - 07/09/2017 6:29 PM EST Dairy Grazer Encounter Note Patient Name: Gregory Hoang : [id number] MR#: [id number] Admit Date: 07/05/2017 4:20 PM Hospital Day 4 days Narrative: Patient was sitting in chair, hugging heart pillow, opened his eyes, nodding to come into room Assessment: Patient was sleepy. Intervention and Outcome: Introduced teaching artist services and patient reached his hand out in appreciation. Follow-up: Dairy Grazer remains available for support. Time in Direct [...] AM EST Report given to director of midwifery/staff midwife to cover care Maddison Cee PA - 07/09/2017 9:00 AM EST Cardiac Surgery Progress Note: ID: [id number] 72 year old male POD#2 s/p CABGx3 [...] Attending Surgeon on rounds. Signed: STEPHANIE Iqbal [facility] Section of Cardiac Surgery Date: [...] when IABP d/c'ed. Gretchen [place], PT Pager [phone] Maddison Cee PA - 07/08/2017 11:27 AM EST Cardiac Surgery Progress Note: ID: [id number] 72 year old male POD#1 s/p CABGx3 [...] Attending Surgeon on rounds. Signed: STEPHANIE Iqbal [facility] Section of Cardiac Surgery Date: [...] in place in R femoral. No hematoma. DISPATCHER TUGBOAT- Intact Psych- Anxious Skin- Dry, no peripheral [...] intact. IABP in place in R femoral. DISPATCHER TUGBOAT- Intact Psych- Anxious Skin- Dry, no peripheral [...] note for details. DAPHNE SHAHID MD Pager [phone] ClarisaJet lynn MD - 07/05/2017 6:48 PM EST Preliminary Cardiac Catheterization Procedure Note: Procedure(s) performed: Left heart cath, IABP insertion Access: Right MINING SPECULATOR-->8fr IABP A time-out was conducted prior to [...] effect. Heparin gtt maintained. Pt transferred to wetlands conservation laborer. documented in this encounter H&P Notes Daphne Shahid MD - 07/05/2017 6:08 PM EST CARDIOLOGY HISTORY & PHYSICAL EXAM Date of Admission: 07/05/2017 ( Hospital Day 0 days ) Responsible Attending: Daphne Shahid MD PCP: Lovely Vicente MD PCP#: [phone] Patient Active Problem List Diagnosis Code ??? [...] transferred to [facility]. While there, continued sob, question of chest pain. Stat TTE showing WMA diffusely and EF around 20%. No significant valvular disease. Taken to the wetlands conservation laborer urgently for ongoing STEMI. [facility] Labs: INR 1.0 WBC 5.88 Hgb [...] monitor I/O - s/p lasix in the wetlands conservation laborer, redose to aim net neg [...] Medicine, PGY-2 Cardiology S1, Team Pager # [phone] CARDIOLOGY ATTENDING NOTE Patient: Gregory Hoang Date [...] amenable for PCI. DAPHNE SHAHID MD Pager [phone] documented in this encounter Miscellaneous Notes Consult Note - Daphne Shahid MD - 07/14/2017 11:46 AM EST Heart Failure Service Inpatient Consult Note Gregory Hoang Date of : 1945 Age: 72 y.o. Today's date: 07/14/17 PCP: Lovely Vicente MD MODELING INSTRUCTOR: None Place of Service: [facility] [...] SETUP performed by Manny Mcknight MD at [facility] OR ??? PRO CABG, ARTERIAL, SINGLE N/A 07/07/2017 @CABG, USING ARTERIAL GRAFT;SINGLE ARTERIAL GRAFT (WRVU 33.75) performed by Yuan Webber MD at [facility] OR ??? PRO CABG, ARTERY-VEIN, TWO N/A 07/07/2017 @CABG, TWO VENOUS GRAFTS & ARTERIAL GRAFT (WRVU 7.93) performed by Yuan Webber MD at [facility] OR ??? PRO COLONOSCOPY, REMV LESN, SNARE 01/16/2014 COLONOSCOPY, POLYPECTOMY, REMOVAL LESION BY SNARE performed by Nohemi Jaimes MD at [facility] ENDOSCOPY ??? PRO ENDOSCOPY W/VIDEO-ASST VEIN HARVEST, CABG Right 07/07/2017 ENDOSCOPIC HARVEST VEIN(S) FOR CABG (WRVU 0.31) performed by Yuan Webber MD at [facility] OR ??? PRO THYROIDECTOMY 03/28/2013 THYROIDECTOMY, TOTAL OR COMPLETE performed by Manny Mcknight MD at [facility] OR Outpt Meds: Current Outpatient Prescriptions Medication [...] following studies: EKG 07/14/17: NSR 75 bpm, OPERATIONS PLANT ATTENDANT anterior infarct, LAD CXR 07/11/17: FINDINGS: Sternotomy wires. The patient has been extubated, left chest tube removed, and Robins-Suzi catheter removed since the 07/07/2017 study. Atelectasis [...] was discussed with Kono. Jaden Kelley MD Journeyman Glazier Pager [phone] CARDIOLOGY ATTENDING NOTE Patient: Gregory Hoang Date [...] heart failure clinic. DAPHNE SHAHID MD Pager [phone] Plan of Care - Alden Chavarria PTA [...] home with assist Alden Chavarria PTA Pager: [phone] Inpatient Physical Therapy Problem: Acute Rehab Services [...] sit/sit to supine -- Bed Mobility Goal, [place] Level supervision required -- Bed Mobility Goal, [...] - 3 days -- Gait Training Goal, [place] Level supervision required -- Gait Training Goal, [...] days -- Transfer Training Goal, Activity Type ltt-mb-mxszw/gaeem-zd-mtm;gqa-ty-pgmwj/yjccd-el-xxg;toilet -- Transfer Train Goal, [place] Level supervision required -- Transfer Training Goal, [...] keeping present for 2 days per family. Plastic Parts Fabricator Trimmer noted of frustrations, house keeping sent to room. Patient offered showered twice, refused. at bedside, frustrated that shower not complete, informed that patient had refused several times. requesting to see ELECTRO OPTICAL ENGINEER, paged sent to Martha, will come to bedside (middle of consult). not willing to wait, Martha notified that family had gone home. Encouraged to come for morning rounds a t 8am. Diabetes team at bedside - insulin adjustments made. Call cabello in reach. Continue to monitor. PLAN MOVING FORWARD: Ambulate, dressing changes BID, Please change drsg at 4am per Martha ELECTRO OPTICAL ENGINEER request. INDIVIDUALIZED FALL PREVENTION INTERVENTIONS: Patient-specific fall risk factors per assessment: [current deficits]: Medications, deconditioned Assistance [level of assistance required for transfers and ambulation]: X1 walker Supervision [direct monitoring required during toileting and ADLs]: Tele, nurses station Surveillance [continuous indirect monitoring]: hourly rounding Patient-specific fall prevention interventions for sensory deficits provided, if applicable: CPG GOAL OUTCOME EVALUATION: Plan of Care - Ale aRngel RN - 07/13/2017 5:16 AM EST Problem: [...] levels on the lower side, 60ml of Bradford juice given after a FS of 80. [...] 07/13/17 0502 Interdisciplinary Rounds/Family Conf Participants case liner;dietitian/nutrition services;nursing;occupational therapy;patient;pharmacy;physical therapy;physician Plan of Care - [...] monitoring required during toileting and ADLs]: RN GRADER MARKER Surveillance [continuous indirect monitoring]: Barrett Monitor CPG [...] Anticipated Discharge Disposition: home with assist Pager: [phone] CLARISSA SEGAL, PT 07/12/2017 Physical Therapy Rehabilitation [...] to sit/sit to supine Bed Mobility Goal, [place] Level supervision required Bed Mobility Goal, Additional Goal adheres to psternal precautions for transfer Goal: Gait Training Goal Stand Alone Therapy Goal Outcome: Ongoing (Interventions Implemented as Appropriate) 07/12/17 1225 Gait Training Goal Gait Training Goal, Date Established 07/12/17 Gait Training Goal, Time to Achieve 2 - 3 days Gait Training Goal, [place] Level supervision required Gait Training Goal, Assist [...] 3 days Transfer Training Goal, Activity Type oln-hg-ovrli/uthlx-ym-fsp;sea-ls-qqvsv/kgwix-mi-suw;toilet Transfer Train Goal, [place] Level supervision required Transfer Training Goal, Additional Goal adheres to sternal precautions during transfer Consult Note - Octavia Vaughn RN - 07/12/2017 10:50 AM EST [facility] CARDIAC REHABILITATION Gregory Hoang was seen today regarding participation in the outpatient Phase 2 Cardiac Rehabilitation at [facility]. The patient agrees to a referral [...] IV site, amio to other piv and POLICE LIAISON at bedside to help assess, IV removed. [...] staff, he stood and marched in place. [place] weak, wanting to sit back down. Remained [...] Coverage: Primary Insurance: MEDICARE Secondary Insurance: [employer] [place] Prescription Coverage: yes Preferred Pharmacy: [facility] [place] Other: none Primary Care Provider: Lovely Vicente MD [phone] Patient/Caregiver Goals of Treatment:live and get my breath back Potential Needs for Transition of Care: Rehab/SNF: [facility] Home Health: NA DME: TBD Dialysis: na Community Resources: available Transportation: yes Other: none Anticipated Barriers to Discharge/Special Considerations: none Plan: Likely SNF Rehab before home A member of the Care Management team will continue to monitor progress, follow for continuity of care and assist with transition of care planning. ERLIN Weiss Pager: [phone] Consult Note - Katerin zAul RN - 07/09/2017 10:05 AM EST Diabetes [...] patient W/E coverage, Dr. Jeane Tatum, pager [phone] Katerin Azul APRN Endocrinology Diabetes Management Pager [phone] Plan of Care - Stephanie Godoy RN [...] Webber MD - 07/07/2017 6:27 PM EST [facility] Operative Note Patient Name: Gregory Hoang : [id number] MR#: [id number] Case Date: 07/07/2017 Surgeon: Surgeon(s) and Role: * Yuan Webber MD - Primary * Michael Drake PA - Physician Cnc Manager * Linda Flores PA - Physician Cnc Manager Preoperative diagnosis: 3VD Postoperative diagnosis: CAD, [...] Operative Note Patient Name: Gregory Hoang : [id number] MR#: [id number] Case Date: 07/07/2017 Surgeon: Surgeon(s) and Role: * Yuan Webber MD - Primary * Michael Drake PA - Physician Cnc Manager * Linda Flores PA - Physician Cnc Manager Preoperative diagnosis: 3VD Postoperative diagnosis: CAD, [...] (Acute Coronary Syndrome) (Adult) [facility]/07/17621 Cardiac: ACS (Acute Coronary Syndrome) Problems [...] MS3 [employer] [facility] Cardiology S1 (Pager [phone]) Plan of Care - Emelia Ibarra RN [...] SNARE performed by Nhoemi Jaimes MD at [facility] ENDOSCOPY ??? PRO THYROIDECTOMY 03/28/2013 THYROIDECTOMY, TOTAL OR COMPLETE performed by Manny Mcknight MD at [facility] MAIN OR Social History: Social History Social [...] with other involved physicians Yuan Webber MD [phone] Med Student Progress Note - Katty Hahn [...] or BiPAP - s/p lasix in the wetlands conservation laborer, was net -1.5L - s/p [...] insulin drip - hold metformin - f/u [facility] ?? #Home Meds - continue levothyroxine 175mcg - CPAP at night ?? # Routine - DVT PPx: heparin drip - Diet: Healthy heart diet, NPO at midnight for CABG tomorrow - Code Status: FULL - Dispo: CVCC Katty Hahn, M3 [facility] Cardiology S1 (Pager [phone]) Plan of Care - Stephanie Godoy RN - 07/06/2017 5:00 AM EST Problem: Patient Care Overview Goal: Plan of Care Review 07/06/17 4023 Coping/Psychosocial Plan Of Care Reviewed With patient;family [...] in urinal without difficulty. 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 at this [...] Coronary Syndrome (ACS)) none Consult Note - Agnela Escalera RT - 07/05/2017 10:14 PM EST [...] Zulma Dolan MD [facility] [place] [address] (Wo rk) 05/28/2022 Laboratory Appointment Lab 05/28/2022 Office Visit Cardiology Zulma Dolan MD [facility] [place] [address] Liz Poole PA [facility] [place] [address] 06/10/2022 Office Visit Dermatology Laura Scherer MD [facility] [address] [facility] [place], [place] [address] (Wo rk) Scheduled Orders Name [...] procedure are i n the results section. OPERATING COST CLERK SCAN 07/15/2017 12:00 Res ults for [...] Routine 07/08/2017 4:00 Results f or this ([facility] [place] [facility]) AM EST procedure are [...] Routine 07/07/2017 5:15 Results f or this ([facility]) AM EST procedure are i n [...] Routine 07/06/2017 7:40 Results f or this ([facility]) PM EST procedure are i n [...] Timed 07/06/2017 2:10 Results f or this ([facility] [facility]) PM EST procedure are [...] section. TYPE AND SCREEN Routine 07/06/2017 12:00 ([facility]/SHANDA) PM EST APTT STAT 07/06/2017 11:24 [...] Routine 07/06/2017 8:10 Results f or this ([facility]) AM EST procedure are i n [...] Routine 07/06/2017 2:20 Results f or this ([facility]) AM EST procedure are i n [...] Routine 07/05/2017 8:20 Results f or this ([facility]) PM EST procedure are i n [...] Timed 07/05/2017 4:55 Results f or this ([facility]) PM EST procedure are [...] 2017 EXAMINATION: XR CHEST PA AND LATERAL (ViptableIC) CLINICAL HISTORY: CABG x 3 TECHNIQUE: PA [...] Teague APRN IMG DX ORDERABLES SCAN DOC: OPERATING COST CLERK (07/15/2017 12:00 AM EST) Narrative 07/15/2017 [...] [facility] mg/dL [facility] Comment: Supplemental ranges: <140 mg/dL before meals <180 mg/dL all other times of the day Specimen Anatomical Collection Method Collection Time Receive d Time (Source) Location / / Volume Laterality Blood specimen 07/14/2017 11:56 7 (specimen) AM EST 11:56 AM EST Yuan Webber MD POINT OF CARE TEST ORDERABLE S Performing Organization Address City/State/[place] [address] POCT Glucose (07/14/2017 7:52 AM EST) athologist Signature POC Glucose 126 65 - 199 [facility] Comment: Supplemental ranges: <140 mg/dL before meals <180 mg/dL all other times of the day Specimen Anatomical Collection Method Collection Time Receive d Time (Source) Location / / Volume Laterality Blood specimen 07/14/2017 7:52 AM 017 7:52 (specimen) EST AM EST Yuan Webber MD POINT OF CARE TEST ORDERABLE S Performing Organization Address City/[facility]/[place] [address] (ABNORMAL) Prothrombin Time (07/14/2017 [...] HEMATOLOGY ORDERABLES Performing Organization Address City/[facility] Code [facility] [place] [address] Potassium (07/14/2017 4:46 AM EST) athologist Signature Potassium 4.3 3.5 - 5.0 [facility] mmol/L [facility] Comment: Please note: ??Patients [...] Address City/State/ZIP Code Phon e Number [address] POCT Glucose (07/14/2017 4:34 AM EST) athologist Signature POC Glucose 115 65 - 199 [place] mg/dL [facility] Comment: Supplemental ranges: <140 mg/dL before meals <180 mg/dL all other times of the day Specimen Anatomical Collection Method Collection Time Receive d Time (Source) Location / / Volume Laterality Blood specimen 07/14/2017 4:34 AM 017 4:34 (specimen) EST AM EST Yuan Webber MD POINT OF CARE TEST ORDERABLE S Performing Organization Address City/[facility]/ZIP Code Phon e Number [address] POCT Glucose (07/13/2017 11:33 PM EST) athologist Signature POC Glucose 132 65 - 199 [place] mg/dL [facility] Comment: Supplemental ranges: <140 [...] Services/ZIP Code Phon e [place] [address] POCT Glucose (07/13/2017 9:25 PM EST) athologist Signature POC Glucose 121 65 - 199 [place] mg/dL [facility] Comment: Supplemental ranges: <140 mg/dL before meals <180 mg/dL all other times of the day Specimen Anatomical Collection Method Collection Time Receive d Time (Source) Location / / Volume Laterality Blood specimen 07/13/2017 9:25 PM 017 9:25 (specimen) EST PM EST Yuan Webber MD POINT OF CARE TEST ORDERABLE S Performing Organization Address City/State/ZIP Code Phon e Number [address] POCT Glucose (07/13/2017 4:55 PM EST) athologist Signature POC Glucose 79 65 - 199 [facility] mg/dL [facility] Comment: Supplemental ranges: <140 mg/dL before meals <180 mg/dL all other times of the day Specimen Anatomical Collection Method Collection Time Receive d Time (Source) Location / / Volume Laterality Blood specimen 07/13/2017 4:55 PM 017 4:55 (specimen) EST PM EST Yuan Webber MD POINT OF CARE TEST ORDERABLE S Performing Organization Address City/State/ZIP Code Phon e Number [address] POCT Glucose (07/13/2017 11:16 AM EST) athologist Signature POC Glucose 163 65 - 199 [facility] mg/dL [facility] Comment: Supplemental ranges: <140 mg/dL before meals <180 mg/dL all other times of the day Specimen Anatomical Collection Method Collection Time Receive d Time (Source) Location / / Volume Laterality Blood specimen 07/13/2017 11:16 7 (specimen) AM EST 11:16 AM EST Yuan Webber MD POINT OF CARE TEST ORDERABLE S Performing Organization Address City/State/ZIP Code Phon e Number [address] POCT Glucose (07/13/2017 8:07 AM EST) athologist Signature POC Glucose 96 65 - 199 [place] mg/dL [facility] Comment: Supplemental ranges: <140 mg/dL before meals <180 mg/dL all other times of the day Specimen Anatomical Collection Method Collection Time Receive d Time (Source) Location / / Volume Laterality Blood specimen 07/13/2017 8:07 AM 017 8:07 (specimen) EST AM EST Yuan Webber MD POINT OF CARE TEST ORDERABLE S Performing Organization Address City/State/ZIP Code Phon e Number [address] (ABNORMAL) Prothrombin Time (07/13/2017 [...] Organization Address City/State/[place] [address] (ABNORMAL) Basic Metabolic Panel (non-fasting) (07/13/2017 4:26 AM EST) athologist Signature Glucose Lvl 95 65 - 199 [facility] mg/dL [facility] Comment: Diabetes: [...] [facility] Estimated GFR 60 >=60 [facility] Comment: The reported eGFR should be multiplied b y 1.2 for patients. The MDRD is not an appropriate measure o f renal function for patients with body mass extremes or in patients with acute kidney failure. http://AskNshare/DHnkdep http://AskNshare/DHMCnkf Specimen Anatomical Collection Method Collection Time Receive d Time (Source) Location / / Volume Laterality Blood specimen 07/13/2017 4:26 AM 017 4:46 (specimen) EST AM EST Resulting Agency Comment Spec In Lab Makayla Wilson APRN CHEMISTRY ORDERABLES Performing Organization Address City/State/ZIP Code Phon e Number [address] POCT Glucose (07/13/2017 3:52 AM EST) athologist Signature POC Glucose 93 65 - 199 [facility] Comment: Supplemental ranges: <140 mg/dL before meals <180 mg/dL all other times of the day Specimen Anatomical Collection Method Collection Time Receive d Time (Source) Location / / Volume Laterality Blood specimen 07/13/2017 3:52 AM 017 3:52 (specimen) EST AM EST Yuan Webber MD POINT OF CARE TEST ORDERABLE S Performing Organization Address City/State/ZIP Code Phon e Number [address] POCT Glucose (07/13/2017 12:21 AM EST) athologist Signature POC Glucose 80 65 - 199 [facility] Comment: Supplemental ranges: <140 mg/dL before meals <180 mg/dL all other times of the day Specimen Anatomical Collection Method Collection Time Receive d Time (Source) Location / / Volume Laterality Blood specimen 07/13/2017 12:21 7 (specimen) AM EST 12:21 AM EST Yuan Webber MD POINT OF CARE TEST ORDERABLE S Performing Organization Address City/State/ZIP Code Phon e Number [address] POCT Glucose (07/12/2017 8:22 PM EST) athologist Signature POC Glucose 119 65 - 199 [place] mg/dL [facility] Comment: Supplemental ranges: <140 mg/dL before meals <180 mg/dL all other times of the day Specimen Anatomical Collection Method Collection Time Receive d Time (Source) Location / / Volume Laterality Blood specimen 07/12/2017 8:22 PM 017 8:22 (specimen) EST PM EST Yuan Webber MD POINT OF CARE TEST ORDERABLE S Performing Organization Address City/[facility]/ZIP Code Phon e Number [address] POCT Glucose (07/12/2017 4:02 PM EST) athologist Signature POC Glucose 114 65 - 199 [place] mg/dL [facility] Comment: Supplemental ranges: <140 mg/dL before meals <180 mg/dL all other times of the day Specimen Anatomical Collection Method Collection Time Receive d Time (Source) Location / / Volume Laterality Blood specimen 07/12/2017 4:02 PM 017 4:02 (specimen) EST PM EST Yuan Webber MD POINT OF CARE TEST ORDERABLE S Performing Organization Address City/State/ZIP Code Phon e Number [address] POCT Glucose (07/12/2017 11:28 AM EST) P athologist Signature POC Glucose 164 65 - 199 [place] mg/dL [facility] Comment: Supplemental ranges: <140 mg/dL before meals <180 mg/dL all other times of the day Specimen Anatomical Collection Method Collection Time Receive d Time (Source) Location / / Volume Laterality Blood specimen 07/12/2017 11:28 7 (specimen) AM EST 11:28 AM EST Yuan Webber MD POINT OF CARE TEST ORDERABLE S Performing Organization Address City/State/ZIP Code Phon e Number [address] POCT Glucose (07/12/2017 7:34 AM EST) athologist Signature POC Glucose 109 65 - 199 [facility] Comment: Supplemental ranges: <140 mg/dL before meals <180 mg/dL all other times of the day Specimen Anatomical Collection Method Collection Time Receive d Time (Source) Location / / Volume Laterality Blood specimen 07/12/2017 7:34 AM 017 7:34 (specimen) EST AM EST Yuan Webber MD POINT OF CARE TEST ORDERABLE S Performing Organization Address City/State/[place] [address] (ABNORMAL) Basic Metabolic Panel (non-fasting) (07/12/2017 4:11 AM EST) athologist Signature Glucose Lvl 92 65 - 199 [facility] Comment: Diabetes: [...] HOSPITAL LABORATORY Estimated GFR 58 (L) >=60 [facility] Comment: The reported eGFR should be multiplied b y 1.2 for patients. The MDRD is not an appropriate measure o f renal function for patients with body mass extremes or in patients with acute kidney failure. http://AskNshare/DHnkdep http://AskNshare/DHMCnkf Specimen Anatomical Collection Method Collection Time Receive d Time (Source) Location / / Volume Laterality Blood specimen 07/12/2017 4:11 AM 017 8:57 (specimen) EST AM EST Resulting Agency Comment Spec In Lab Makayla [place] STACIE CHEMISTRY ORDERABLES Performing Organization Address [facility] [place] [address] (ABNORMAL) Prothrombin Time (07/12/2017 [...] [place] STACIE HEMATOLOGY ORDERABLES Performing Organization Address [facility] Phon e Number [address] Potassium (07/12/2017 4:11 AM EST) P athologist Signature Potassium 3.8 3.5 - 5.0 [facility] mmol/L [facility] Comment: Please note: ??Patients [...] ORDERABLES Performing Organization Address City/[facility]/ZIP [facility] Phon e Number [address] POCT Glucose (07/12/2017 4:10 AM EST) athologist Signature POC Glucose 90 65 - 199 [facility] Comment: Supplemental ranges: <140 mg/dL before meals <180 mg/dL all other times of the day Specimen Anatomical Collection Method Collection Time Receive d Time (Source) Location / / Volume Laterality Blood specimen 07/12/2017 4:10 AM 017 4:10 (specimen) EST AM EST Yuan Webber MD POINT OF CARE TEST ORDERABLE S Performing Organization Address City/[facility]/ZIP Code Phon e Number [address] POCT Glucose (07/11/2017 11:57 PM EST) athologist Signature POC Glucose 98 65 - 199 [facility] Comment: Supplemental ranges: <140 mg/dL before meals <180 mg/dL all other times of the day Specimen Anatomical Collection Method Collection Time Receive d Time (Source) Location / / Volume Laterality Blood specimen 07/11/2017 11:57 7 (specimen) PM EST 11:57 PM EST Yuan Webber MD POINT OF CARE TEST ORDERABLE S Performing Organization Address City/[facility]/ZIP Code Phon e Number [address] POCT Glucose (07/11/2017 8:32 PM EST) P athologist Signature POC Glucose 146 65 - 199 [place] mg/dL [facility] Comment: Supplemental ranges: <140 mg/dL before meals <180 mg/dL all other times of the day Specimen Anatomical Collection Method Collection Time Receive d Time (Source) Location / / Volume Laterality Blood specimen 07/11/2017 8:32 PM 017 8:32 (specimen) EST PM EST Yuan Webber MD POINT OF CARE TEST ORDERABLE S Performing Organization Address City/State/[place] [address] XR Chest PA & [...] e xtubated, left chest tube removed, and Robins-Suzi catheter removed since the study. Atelectasis at [...] e xtubated, left chest tube removed, and Robins-Suzi catheter removed since the study. Atelectasis at [...] 65 - 199 [place] mg/dL [facility] Comment: Supplemental ranges: <140 mg/dL before meals <180 mg/dL all other times of the day Specimen Anatomical Collection Method Collection Time Receive d Time (Source) Location / / Volume Laterality Blood specimen 07/11/2017 4:05 PM 017 4:05 (specimen) EST PM EST Yuan Webber MD POINT OF CARE TEST ORDERABLE S Performing Organization Address City/[facility]/ZIP Code Phon e Number [address] POCT Glucose (07/11/2017 11:55 AM EST) athologist Signature POC Glucose 176 65 - 199 [place] mg/dL [facility] Comment: Supplemental ranges: <140 mg/dL before meals <180 mg/dL all other times of the day Specimen Anatomical Collection Method Collection Time Receive d Time (Source) Location / / Volume Laterality Blood specimen 07/11/2017 11:55 7 (specimen) AM EST 11:55 AM EST Yuan Webber MD POINT OF CARE TEST ORDERABLE S Performing Organization Address City/State/[place] [address] POCT Glucose (07/11/2017 7:53 AM EST) athologist Signature POC Glucose 189 65 - 199 [place] mg/dL [facility] Comment: Supplemental ranges: <140 mg/dL before meals <180 mg/dL all other times of the day Specimen Anatomical Collection Method Collection Time Receive d Time (Source) Location / / Volume Laterality Blood specimen 07/11/2017 7:53 AM 017 7:53 (specimen) EST AM EST Yuan Webber MD POINT OF CARE TEST ORDERABLE S Performing Organization Address City/[facility]/ZIP Code Phon e Number [address] POCT Glucose (07/11/2017 4:22 AM EST) athologist Signature POC Glucose 151 65 - 199 [place] mg/dL [facility] Comment: Supplemental ranges: <140 mg/dL before meals <180 mg/dL all other times of the day Specimen Anatomical Collection Method Collection Time Receive d Time (Source) Location / / Volume Laterality Blood specimen 07/11/2017 4:22 AM 017 4:22 (specimen) EST AM EST Yuan Webber MD POINT OF CARE TEST ORDERABLE S Performing Organization Address [facility]/[place] [address] Potassium (07/11/2017 2:20 AM EST) athologist Signature Potassium 4.5 3.5 - 5.0 [facility] mmol/L [facility] Comment: Please note: ??Patients [...] City/[facility]/ZIP Code Phon e Number [address] POCT Glucose (07/11/2017 12:17 AM EST) athologist Signature POC Glucose 162 65 - 199 [place] mg/dL [facility] Comment: Supplemental ranges: <140 mg/dL before meals <180 mg/dL all other times of the day Specimen Anatomical Collection Method Collection Time Receive d Time (Source) Location / / Volume Laterality Blood specimen 07/11/2017 12:17 7 (specimen) AM EST 12:17 AM EST Yuan Webber MD POINT OF CARE TEST ORDERABLE S Performing Organization Address City/State/ZIP Code Phon e Number [address] POCT Glucose (07/10/2017 8:47 PM EST) athologist Signature POC Glucose 191 65 - 199 [place] mg/dL [facility] Comment: Supplemental ranges: <140 mg/dL before meals <180 mg/dL all other times of the day Specimen Anatomical Collection Method Collection Time Receive d Time (Source) Location / / Volume Laterality Blood specimen 07/10/2017 8:47 PM 017 8:47 (specimen) EST PM EST Yuan Webber MD POINT OF CARE TEST ORDERABLE S Performing Organization Address City/State/[place] [address] POCT Glucose (07/10/2017 4:06 PM EST) athologist Signature POC Glucose 131 65 - 199 [place] mg/dL [facility] Comment: Supplemental ranges: <140 mg/dL before meals <180 mg/dL all other times of the day Specimen Anatomical Collection Method Collection Time Receive d Time (Source) Location / / Volume Laterality Blood specimen 07/10/2017 4:06 PM 017 4:06 (specimen) EST PM EST Yuan Webber MD POINT OF CARE TEST ORDERABLE S Performing Organization Address City/State/ZIP Code Phon e Number [address] POCT Glucose (07/10/2017 3:08 PM EST) athologist Signature POC Glucose 151 65 - 199 [facility] mg/dL [facility] Comment: Supplemental ranges: <140 mg/dL before meals <180 mg/dL all other times of the day Specimen Anatomical Collection Method Collection Time Receive d Time (Source) Location / / Volume Laterality Blood specimen 07/10/2017 3:08 PM 017 3:08 (specimen) EST PM EST Yuan Webber MD POINT OF CARE TEST ORDERABLE S Performing Organization Address City/State/ZIP Code Phon e Number [address] POCT Glucose (07/10/2017 2:25 PM EST) athologist Signature POC Glucose 146 65 - 199 [place] mg/dL [facility] Comment: Supplemental ranges: <140 mg/dL before meals <180 mg/dL all other times of the day Specimen Anatomical Collection Method Collection Time Receive d Time (Source) Location / / Volume Laterality Blood specimen 07/10/2017 2:25 PM 017 2:25 (specimen) EST PM EST Yuan Webber MD POINT OF CARE TEST ORDERABLE S Performing Organization Address City/State/[place] [address] POCT Glucose (07/10/2017 1:23 PM EST) athologist Signature POC Glucose 166 65 - 199 [place] mg/dL [facility] Comment: Supplemental ranges: <140 mg/dL before meals <180 mg/dL all other times of the day Specimen Anatomical Collection Method Collection Time Receive d Time (Source) Location / / Volume Laterality Blood specimen 07/10/2017 1:23 PM 017 1:23 (specimen) EST PM EST Yuan Webber MD POINT OF CARE TEST ORDERABLE S Performing Organization Address City/State/[place] [address] POCT Glucose (07/10/2017 11:52 AM EST) athologist Signature POC Glucose 157 65 - 199 [facility] mg/dL [facility] Comment: Supplemental ranges: <140 mg/dL before meals <180 mg/dL all other times of the day Specimen Anatomical Collection Method Collection Time Receive d Time (Source) Location / / Volume Laterality Blood specimen 07/10/2017 11:52 7 (specimen) AM EST 11:52 AM EST Yuan Webber MD POINT OF CARE TEST ORDERABLE S Performing Organization Address City/State/ZIP Code Phon e Number [address] POCT Glucose (07/10/2017 11:01 AM EST) P athologist Signature POC Glucose 158 65 - 199 [place] mg/dL [facility] Comment: Supplemental ranges: <140 mg/dL before meals <180 mg/dL all other times of the day Specimen Anatomical Collection Method Collection Time Receive d Time (Source) Location / / Volume Laterality Blood specimen 07/10/2017 11:01 7 (specimen) AM EST 11:01 AM EST Yuan Webber MD POINT OF CARE TEST ORDERABLE S Performing Organization Address City/[facility]/ZIP Code Phon e Number [address] POCT Glucose (07/10/2017 9:54 AM EST) P athologist Signature POC Glucose 160 65 - 199 [place] mg/dL [facility] LABOR[facility]ORY Comment: Supplemental ranges: <140 mg/dL before meals <180 mg/dL all other times of the day Specimen Anatomical Collection Method Collection Time Receive d Time (Source) Location / / Volume Laterality Blood specimen 07/10/2017 9:54 AM 017 9:54 (specimen) EST AM EST Yuan Webber MD POINT OF CARE TEST ORDERABLE S Performing Organization Address City/State/ZIP Code Phon e Number [address] POCT Glucose (07/10/2017 8:58 AM EST) P athologist Signature POC Glucose 183 65 - 199 [place] mg/dL [facility] Comment: Supplemental ranges: <140 mg/dL before meals <180 mg/dL all other times of the day Specimen Anatomical Collection Method Collection Time Receive d Time (Source) Location / / Volume Laterality Blood specimen 07/10/2017 8:58 AM 017 8:58 (specimen) EST AM EST Yuan Webber MD POINT OF CARE TEST ORDERABLE S Performing Organization Address City/State/ZIP Code Phon e Number [address] POCT Glucose (07/10/2017 8:01 AM EST) P athologist Signature POC Glucose 173 65 - 199 [place] mg/dL [facility] Comment: Supplemental ranges: <140 mg/dL before meals <180 mg/dL all other times of the day Specimen Anatomical Collection Method Collection Time Receive d Time (Source) Location / / Volume Laterality Blood specimen 07/10/2017 8:01 AM 017 8:01 (specimen) EST AM EST Yuan Webber MD POINT OF CARE TEST ORDERABLE S Performing Organization Address City/State/ZIP Code Phon e Number [address] POCT Glucose (07/10/2017 7:05 AM EST) athologist Signature POC Glucose 166 65 - 199 [place] mg/dL [facility] Comment: Supplemental ranges: <140 mg/dL before meals <180 mg/dL all other times of the day Specimen Anatomical Collection Method Collection Time Receive d Time (Source) Location / / Volume Laterality Blood specimen 07/10/2017 7:05 AM 017 7:05 (specimen) EST AM EST Yuan Webber MD POINT OF CARE TEST ORDERABLE S Performing Organization Address City/State/[place] [address] POCT Glucose (07/10/2017 6:00 AM EST) athologist Signature POC Glucose 162 65 - 199 [place] mg/dL [facility] Comment: Supplemental ranges: <140 mg/dL before meals <180 mg/dL all other times of the day Specimen Anatomical Collection Method Collection Time Receive d Time (Source) Location / / Volume Laterality Blood specimen 07/10/2017 6:00 AM 017 6:00 (specimen) EST AM EST Yuan Webber MD POINT OF CARE TEST ORDERABLE S Performing Organization Address City/State/ZIP Code Phon e Number [place] [phone] [facility] [address]ORY Drive (ABNORMAL) Differential, Automated (07/10/2017 4:28 AM EST) [facility] Method Time Signature Neutrophils % 87.9 % [facility] LABORATORY Neutr Abs (ANC) 10.70 (H) 1.70 - [facility] 6.10 [facility] x10(3)/[facility] L LABORATORY Lymphocytes % 3.9 % [facility] LABORATORY Lymphocytes Abs 0.5 (L) 0.9 - 3.2 [facility] x10(3)/[facility] LABORATORY Monocytes % 7.0 % [facility]OR[facility] Monocyte Abs 0.8 0.3 - 0.9 [facility] x10(3)/[facility] LABORATORY Eosinophils % 0.3 % [facility] Eosinophils Abs 0.0 0.0 - 0.4 [facility] x10(3)/[facility] LABORATORY Basophils % 0.2 % [facility] Basophils Abs 0.0 0.0 - 0.1 [facility] x10(3)/[facility] LABORATORY Immature Gran % 0.70 % [facility] [...] Gran Abs 0.08 (H) 0.00 - 0.04 x10(3)/[facility] LABORATORY Specimen Anatomical Collection Method Collection Time Receive d Time (Source) Location / / Volume Laterality Blood specimen 07/10/2017 4:28 AM 017 4:36 (specimen) EST AM EST Resulting Agency Comment Spec In Lab Yuan Webber MD HEMATOLOGY ORDERABLES Performing Organization Address City/[facility]/[place]IP [place] [address] (ABNORMAL) Hemogram (07/10/2017 4:28 AM EST) Analysis Performed At Patho logist Time Signature WBC 12.2 (H) 4.0 - 9.5 [facility] x10(3)/[facility] LABORATORY RBC 3.31 (L) 4.58 - [place] 5.54 [facility] x10(6)/[facility] LABORATORY Hemoglobin 9.8 (L) 13.7 - [facility] 16.5 gm/dL [facility] Hematocrit 30.0 (L) 40.5 - [facility] 48.5 % [facility] MCV 90.6 82.9 - [facility] 93.1 [facility] LABORATORY MCH 29.6 27.5 - [facility] 32.1 pg [facility] LABORATORY MCHC 32.7 32.0 - [facility] 35.7 gm/dL [facility]ORY Platelets 135 (L) 145 - 357 [facility] x10(3)/[facility] LABORATORY RDWSD 50.8 (H) 36.0 - [facility] 45.0 [facility] LABORATORY RDWCV 15.4 (H) 11.4 - [facility] 13.8 % [facility] LABORATORY MPV 10.0 7.6 - 12.9 [facility] LABORATORY nRBC % Auto 0.0 % [facility] LABORATORY nRBC Abs Auto 0.000 0.000 - [facility] 0.000 [facility] x10(3)/[facility] LABORATORY Specimen Anatomical Collection Method Collection Time Receive d Time (Source) Location / / Volume Laterality Blood specimen 07/10/2017 4:28 AM 017 4:36 (specimen) EST AM EST Resulting Agency Comment Spec In Lab Yuan Webber MD HEMATOLOGY ORDERABLES Performing Organization Address City/State/ZIP Code Phon e Number [address] (ABNORMAL) Basic Metabolic Panel (non-fasting) (07/10/2017 4:28 AM EST) P athologist Signature Glucose Lvl 178 65 - 199 [facility] mg/dL [facility] Comment: Diabetes: [...] [facility] Estimated GFR 60 >=60 [facility] LABORATORY Comment: The reported eGFR should be multiplied b y 1.2 for patients. The MDRD is not an appropriate measure o f renal function for patients with body mass extremes or in patients with acute kidney failure. http://[employer]/DHnkdep http://AskNshare/DHMCnkf Specimen Anatomical Collection Method Collection Time Receive d Time (Source) Location / / Volume Laterality Blood specimen 07/10/2017 4:28 AM 017 4:36 (specimen) EST AM EST Resulting Agency Comment Spec In Lab Yuan Webber MD CHEMISTRY ORDERABLES Performing Organization Address City/State/Z[place] [address] POCT Glucose (07/10/2017 4:26 AM EST) P athologist Signature POC Glucose 176 65 - 199 [facility] mg/dL [facility] Comment: Supplemental ranges: <140 mg/dL before meals <180 mg/dL all other times of the day Specimen Anatomical Collection Method Collection Time Receive d Time (Source) Location / / Volume Laterality Blood specimen 07/10/2017 4:26 AM 017 4:26 (specimen) EST AM EST Yuan Webber MD POINT OF CARE TEST ORDERABLE S Performing Organization Address City/State/ZIP Code Phon e Number [address] (ABNORMAL) POCT Glucose (07/10/2017 3:06 AM EST) P athologist Signature POC Glucose 204 (H) 65 - 199 [facility] R[facility] mg/dL [facility] Comment: Supplemental ranges: <140 mg/dL before meals <180 mg/dL all other times of the day Specimen Anatomical Collection Method Collection Time Receive d Time (Source) Location / / Volume Laterality Blood specimen 07/10/2017 3:06 AM 017 3:06 (specimen) EST AM EST Yuan Webber MD POINT OF CARE TEST ORDERABLE S Performing Organization Address City/[facility]/[place] [address] (ABNORMAL) POCT Glucose (07/10/2017 2:10 AM EST) P athologist Signature POC Glucose 203 (H) 65 - 199 [facility] R[facility] mg/dL [facility] Comment: Supplemental ranges: <140 mg/dL before meals <180 mg/dL all other times of the day Specimen Anatomical Collection Method Collection Time Receive d Time (Source) Location / / Volume Laterality Blood specimen 07/10/2017 2:10 AM 017 2:10 (specimen) EST AM EST Yuan Webber MD POINT OF CARE TEST ORDERABLE S Performing Organization Address City/State/ZIP Code Phon e Number [address] POCT Glucose (07/10/2017 1:09 AM EST) P athologist Signature POC Glucose 196 65 - 199 [facility] mg/dL [facility] Comment: Supplemental ranges: <140 mg/dL before meals <180 mg/dL all other times of the day Specimen Anatomical Collection Method Collection Time Receive d Time (Source) Location / / Volume Laterality Blood specimen 07/10/2017 1:09 AM 2 017 1:09 (specimen) EST AM EST Yuan Webber MD POINT OF CARE TEST ORDERABLE S Performing Organization Address City/State/ZIP Code Phon e Number [address] POCT Glucose (07/10/2017 12:10 AM EST) P athologist Signature POC Glucose 173 65 - 199 [place] mg/dL [facility] Comment: Supplemental ranges: <140 mg/dL before meals <180 mg/dL all other times of the day Specimen Anatomical Collection Method Collection Time Receive d Time (Source) Location / / Volume Laterality Blood specimen 07/10/2017 12:10 7 (specimen) AM EST 12:10 AM EST Yuan Webber MD POINT OF CARE TEST ORDERABLE S Performing Organization Address City/State/[place] [address] POCT Glucose (07/09/2017 11:01 PM EST) P athologist Signature POC Glucose 140 65 - 199 [place] mg/dL [facility] Comment: Supplemental ranges: <140 mg/dL before meals <180 mg/dL all other times of the day Specimen Anatomical Collection Method Collection Time Receive d Time (Source) Location / / Volume Laterality Blood specimen 07/09/2017 11:01 7 (specimen) PM EST 11:01 PM EST Yuan Webber MD POINT OF CARE TEST ORDERABLE S Performing Organization Address City/State/[place] [address] POCT Glucose (07/09/2017 10:05 PM EST) P athologist Signature POC Glucose 144 65 - 199 [facility] mg/dL [facility] Comment: Supplemental ranges: <140 mg/dL before meals <180 mg/dL all other times of the day Specimen Anatomical Collection Method Collection Time Receive d Time (Source) Location / / Volume Laterality Blood specimen 07/09/2017 10:05 7 (specimen) PM EST 10:05 PM EST Yuan Webber MD POINT OF CARE TEST ORDERABLE S Performing Organization Address City/State/ZIP Code Phon e Number [address] POCT Glucose (07/09/2017 9:31 PM EST) athologist Signature POC Glucose 121 65 - 199 [place]HA[place] mg/dL [facility] Comment: Supplemental ranges: <140 mg/dL before meals <180 mg/dL all other times of the day Specimen Anatomical Collection Method Collection Time Receive d Time (Source) Location / / Volume Laterality Blood specimen 07/09/2017 9:31 PM 017 9:31 (specimen) EST PM EST Yuan Webber MD POINT OF CARE TEST ORDERABLE S Performing Organization Address City/[facility]/ZIP Code Phon e Number [address] POCT Glucose (07/09/2017 9:03 PM EST) athologist Signature POC Glucose 98 65 - 199 [place] mg/dL [facility] Comment: Supplemental ranges: <140 mg/dL before meals <180 mg/dL all other times of the day Specimen Anatomical Collection Method Collection Time Receive d Time (Source) Location / / Volume Laterality Blood specimen 07/09/2017 9:03 PM 017 9:03 (specimen) EST PM EST Yuan Webber MD POINT OF CARE TEST ORDERABLE S Performing Organization Address City/[facility]/ZIP Code Phon e Number [address] POCT Glucose (07/09/2017 8:09 PM EST) athologist Signature POC Glucose 117 65 - 199 [place] mg/dL [facility] Comment: Supplemental ranges: <140 mg/dL before meals <180 mg/dL all other times of the day Specimen Anatomical Collection Method Collection Time Receive d Time (Source) Location / / Volume Laterality Blood specimen 07/09/2017 8:09 PM 017 8:09 (specimen) EST PM EST Yuan Webber MD POINT OF CARE TEST ORDERABLE S Performing Organization Address City/State/ZIP Code Phon e Number [address] POCT Glucose (07/09/2017 5:40 PM EST) athologist Signature POC Glucose 155 65 - 199 [place] mg/dL [facility] Comment: Supplemental ranges: <140 mg/dL before meals <180 mg/dL all other times of the day Specimen Anatomical Collection Method Collection Time Receive d Time (Source) Location / / Volume Laterality Blood specimen 07/09/2017 5:40 PM 017 5:40 (specimen) EST PM EST Yuan Webber MD POINT OF CARE TEST ORDERABLE S Performing Organization Address City/State/ZIP Code Phon e Number [address] POCT Glucose (07/09/2017 4:24 PM EST) athologist Signature POC Glucose 164 65 - 199 [place] mg/dL [facility] Comment: Supplemental ranges: <140 mg/dL before meals <180 mg/dL all other times of the day Specimen Anatomical Collection Method Collection Time Receive d Time (Source) Location / / Volume Laterality Blood specimen 07/09/2017 4:24 PM 017 4:24 (specimen) EST PM EST Yuan Webber MD POINT OF CARE TEST ORDERABLE S Performing Organization Address City/State/ZIP Code Phon e Number [address] POCT Glucose (07/09/2017 3:19 PM EST) athologist Signature POC Glucose 166 65 - 199 [facility] mg/dL [facility] Comment: Supplemental ranges: <140 mg/dL before meals <180 mg/dL all other times of the day Specimen Anatomical Collection Method Collection Time Receive d Time (Source) Location / / Volume Laterality Blood specimen 07/09/2017 3:19 PM 017 3:19 (specimen) EST PM EST Yuan Webber MD POINT OF CARE TEST ORDERABLE S Performing Organization Address City/State/[place] [address] POCT Glucose (07/09/2017 2:26 PM EST) athologist Signature POC Glucose 179 65 - 199 [place]HA[place] mg/dL [facility] Comment: Supplemental ranges: <140 mg/dL before meals <180 mg/dL all other times of the day Specimen Anatomical Collection Method Collection Time Receive d Time (Source) Location / / Volume Laterality Blood specimen 07/09/2017 2:26 PM 017 2:26 (specimen) EST PM EST Yuan Webber MD POINT OF CARE TEST ORDERABLE S Performing Organization Address City/[facility]/[place] [address] (ABNORMAL) POCT Glucose (07/09/2017 1:29 PM EST) athologist Signature POC Glucose 210 (H) 65 - 199 [place] mg/dL [facility] Comment: Supplemental ranges: <140 mg/dL before meals <180 mg/dL all other times of the day Specimen Anatomical Collection Method Collection Time Receive d Time (Source) Location / / Volume Laterality Blood specimen 07/09/2017 1:29 PM 017 1:29 (specimen) EST PM EST Yuan Webber MD POINT OF CARE TEST ORDERABLE S Performing Organization Address City/[facility]/[place] [address] POCT Glucose (07/09/2017 12:20 PM EST) athologist Signature POC Glucose 172 65 - 199 [place]HA[place] mg/dL [facility] Comment: Supplemental ranges: <140 mg/dL before meals <180 mg/dL all other times of the day Specimen Anatomical Collection Method Collection Time Receive d Time (Source) Location / / Volume Laterality Blood specimen 07/09/2017 12:20 7 (specimen) PM EST 12:20 PM EST Yuan Webber MD POINT OF CARE TEST ORDERABLE S Performing Organization Address City/State/ZIP Code Phon e Number [address] POCT Glucose (07/09/2017 11:24 AM EST) P athologist Signature POC Glucose 156 65 - 199 [place] mg/dL [facility] Comment: Supplemental ranges: <140 mg/dL before meals <180 mg/dL all other times of the day Specimen Anatomical Collection Method Collection Time Receive d Time (Source) Location / / Volume Laterality Blood specimen 07/09/2017 11:24 7 (specimen) AM EST 11:24 AM EST Yuan Webber MD POINT OF CARE TEST ORDERABLE S Performing Organization Address City/State/ZIP Code Phon e Number [address] POCT Glucose (07/09/2017 11:11 AM EST) P athologist Signature POC Glucose 172 65 - 199 [place] mg/dL [facility] Comment: Supplemental ranges: <140 mg/dL before meals <180 mg/dL all other times of the day Specimen Anatomical Collection Method Collection Time Receive d Time (Source) Location / / Volume Laterality Blood specimen 07/09/2017 11:11 7 (specimen) AM EST 11:11 AM EST Yuan Webber MD POINT OF CARE TEST ORDERABLE S Performing Organization Address City/State/ZIP [place] [address] [facility] [address] POCT Glucose (07/09/2017 10:08 AM EST) P athologist Signature POC Glucose 176 65 - 199 [place] ZHA[place] mg/dL [facility] Comment: Supplemental ranges: <140 [...] Code Phon e Number [facility] [place] [address] POCT Glucose (07/09/2017 8:02 AM EST) P athologist Signature POC Glucose 178 65 - 199 [facility] mg/dL [facility] Comment: Supplemental ranges: <140 mg/dL before meals <180 mg/dL all other times of the day Specimen Anatomical Collection Method Collection Time Receive d Time (Source) Location / / Volume Laterality Blood specimen 07/09/2017 8:02 AM 017 8:02 (specimen) EST AM EST Yuan Webber MD POINT OF CARE TEST ORDERABLE S Performing Organization Address City/State/[place] [address] (ABNORMAL) BLOOD GAS 2 ARTERIAL (07/09/2017 5:37 AM EST) Analysis Performed At Patho logist Time Signature pH Art 7.36 7.35 - [facility] 7.45 [facility] LABORATORY pCO2 Art 38 35 - 45 [facility] LABORATORY pO2 Art 79 (L) 85 - 104 [facility] LABORATORY HCO3 Art 20.9 20.0 - [facility] 26.0 [facility] mmol/L [facility] LABOR[facility] BE Art -4.6 (L) -3.0 - 3.0 [facility] mmol/L [facility] Hgb Blood Gas 10.5 (L) 13.7 - [facility] 16.5 gm/dL [facility] O2HB Art 93.8 (L) 94.0 - [facility] 97.0 % [facility] COHB Art 0.3 % [place] [facility] FIO2 Art 40 % [facility] LABORAT[facility] PF Ratio Art 198 [facility] LABORATORY Specimen Anatomical Collection Method Collection Time Receive d Time (Source) Location / / Volume Laterality Blood specimen 07/09/2017 5:37 AM 017 5:37 (specimen) EST AM EST Yuan Webber MD CHEMISTRY ORDERABLES Performing Organization Address City/[facility]/[place] [address] POCT Glucose (07/09/2017 3:27 AM EST) P athologist Signature POC Glucose 192 65 - 199 [facility] mg/dL [facility] Comment: Supplemental ranges: <140 mg/dL before meals <180 mg/dL all other times of the day Specimen Anatomical Collection Method Collection Time Receive d Time (Source) Location / / Volume Laterality Blood specimen 07/09/2017 3:27 AM 017 3:27 (specimen) EST AM EST Yuan Webber MD POINT OF CARE TEST ORDERABLE S Performing Organization Address City/[facility]/[place] [address] (ABNORMAL) Basic Metabolic Panel (non-fasting) (07/09/2017 2:30 AM EST) P athologist Signature Glucose Lvl 179 65 - 199 [facility] mg/dL [facility] Comment: Diabetes: [...] or in patients with acute kidney failure. http://[employer]/DHnkdep http://AskN[employer]/DHMCnkf Specimen Anatomical Collection Method Collection Time Receive d Time (Source) Location / / Volume Laterality Blood specimen Venous Draw / 07/09/2017 2:30 AM 2016 2:42 (specimen) Unknown EST AM EST Resulting Agency Comment Spec In Lab Yuan Webber MD CHEMISTRY ORDERABLES Performing Organization Address City/State/Z[place] [address] (ABNORMAL) Potassium (07/09/2017 2:30 AM EST) P athologist Signature Potassium 5.1 (H) 3.5 - 5.0 [facility] mmol/L [facility] Comment: Please note: ??Patients [...] Organization Address City/State/ZIP [place] [address] (ABNORMAL) Hemogram (07/09/2017 2:30 AM EST) Analysis Performed At Patho logist Time Signature WBC 12.5 (H) 4.0 - 9.5 [facility] x10(3)/[facility] LABORATORY RBC 3.38 (L) 4.58 - [facility] 5.54 [facility] x10(6)/[facility] LABORATORY Hemoglobin 10.1 (L) 13.7 - [facility] 16.5 gm/dL [facility] Hematocrit 30.3 (L) 40.5 - [facility] 48.5 % [facility] MCV 89.6 82.9 - [facility] 93.1 [facility] LABORATORY MCH 29.9 27.5 - [place] 32.1 pg [facility] MCHC 33.3 32.0 - [facility] 35.7 gm/dL [facility] Platelets 127 (L) 145 - 357 [facility] x10(3)/[facility] LABORATORY RDWSD 49.3 (H) 36.0 - [place] 45.0 [facility] LABORATORY RDWCV 15.2 (H) 11.4 - [facility] 13.8 % [facility] LABORATORY MPV 9.9 7.6 - 12.9 [facility] LABORATORY nRBC % Auto 0.0 % [facility] LABORATORY nRBC Abs Auto 0.000 0.000 - [place] 0.000 [facility] x10(3)/[facility] LABORATORY Specimen Anatomical Collection Method Collection Time Receive d Time (Source) Location / / Volume Laterality Blood specimen 07/09/2017 2:30 AM 017 2:41 (specimen) EST AM EST Resulting Agency Comment Spec In Lab Yuan Webber MD HEMATOLOGY ORDERABLES Performing Organization Address City/[facility]/ZIP Code Phon e Number [address] POCT Glucose (07/09/2017 2:10 AM EST) P athologist Signature POC Glucose 169 65 - 199 [place] mg/dL [facility] Comment: Supplemental ranges: <140 mg/dL before meals <180 mg/dL all other times of the day Specimen Anatomical Collection Method Collection Time Receive d Time (Source) Location / / Volume Laterality Blood specimen 07/09/2017 2:10 AM 017 2:10 (specimen) EST AM EST Yuan Webber MD POINT OF CARE TEST ORDERABLE S Performing Organization Address City/[facility]/[place] [address] POCT Glucose (07/09/2017 1:01 AM EST) P athologist Signature POC Glucose 173 65 - 199 [place] ZHAORYAN mg/dL [facility] Comment: Supplemental ranges: <140 mg/dL before meals <180 mg/dL all other times of the day Specimen Anatomical Collection Method Collection Time Receive d Time (Source) Location / / Volume Laterality Blood specimen 07/09/2017 1:01 AM 017 1:01 (specimen) EST AM EST Yuan Webber MD POINT OF CARE TEST ORDERABLE S Performing Organization Address City/[facility]/ZIP Code Phon e Number [address] Blood culture (07/09/2017 12:40 AM EST) [facility] Method Time Signature Blood Culture No growth KATALINA VILLAREALCOCK at 5 days. [facility] Specimen Anatomical Collection Method Collection Time Receive d Time (Source) Location / / Volume Laterality Blood specimen STRUCTURE OF RIGHT 07/09/2017 12:40 3:58 (specimen) UPPER LIMB / AM EST AM EST Unknown Resulting Agency Comment Spec In Lab Yuan Webber MD MICROBIOLOGY - BLOOD ORDERAB LES Performing Organization Address City/State/[place] [address] Blood culture (07/09/2017 12:30 AM EST) [facility] Andre Phillipe Method Time Signature Blood Culture No growth KATALINA DAVIS at 5 days. [facility] Specimen Anatomical Collection Method Collection Time Receive d Time (Source) Location / / Volume Laterality Blood specimen STRUCTURE OF LEFT 07/09/2017 12:30 1211/2016 3:59 (specimen) UPPER LIMB / AM EST AM EST Unknown Resulting Agency Comment Spec In Lab Yuan Webber MD MICROBIOLOGY - BLOOD ORDERAB LES Performing Organization Address City/[facility]/[place] [address] (ABNORMAL) Urinalysis Microscopic Exam (07/09/2017 12:05 AM EST) Analysis Performed At Patho logist Time Signature RBC UA 32 (H) 0 - 3 /HPF [facility] WBC UA 5 (H) 0 - 3 /HPF [facility] Squam Epith UA <1 <=4 /HPF [facility] Hyaline Cast 17 (H) 0 - 2 /LPF [facility] Gran Cast UA 1 (H) <=0 /LPF [facility] Uric Ac Bianca Rare (A) None /HPF [facility] Specimen (Source) Anatomical Collection Method Collection Time Re ceived Time Location / / Volume Laterality Urine specimen 07/09/2017 12:05 07/09/ 7 obtained via AM EST 12:39 AM EST indwelling urinary catheter (specimen) Resulting Agency Comment Spec In Lab Yuan Webber MD URINE ORDERABLES Performing Organization Address City/State/[place] [address] (ABNORMAL) Urinalysis with reflex Culture (07/09/2017 12:05 AM EST) [facility] Andre Phillipe Method Time Signature Glucose UA Negative Negative KATALINA DAVIS mg/dL [facility] Protein UA 30 (A) Negative [facility] Bilirubin UA Negative Negative [facility] Comment: Clinical correlation required [...] HOSPITAL LABORATORY Ketones UA Negative Negative mg/dL [facility] Nitrite UA Negative Negative [facility] Leukocytes UA Negative Negative [facility] LABORATORY Appearance UA Hazy (A) Clear [facility] LABORATORY Spec [place] UA 1.025 1.002 - 1.030 [facility] Color UA Yellow Yellow [facility] Culture Reflexed No [facility] Specimen (Source) Anatomical Collection Method Collection Time Re ceived Time Location / / Volume Laterality Urine specimen 07/09/2017 12:05 7 obtained via AM EST 12:39 AM EST indwelling urinary catheter (specimen) Resulting Agency Comment Spec In Lab Yuan Webber MD URINE ORDERABLES Performing Organization Address City/[facility]/ZIP [place] [address] POCT Glucose (07/08/2017 11:01 PM EST) P athologist Signature POC Glucose 191 65 - 199 [facility]dL [facility] Comment: Supplemental ranges: <140 [...] Code Phon e Number [facility] [place] [address] POCT Glucose (07/08/2017 10:04 PM EST) athologist Signature POC Glucose 198 65 - 199 [facility] Comment: Supplemental ranges: <140 mg/dL before meals <180 mg/dL all other times of the day Specimen Anatomical Collection Method Collection Time Receive d Time (Source) Location / / Volume Laterality Blood specimen 07/08/2017 10:04 7 (specimen) PM EST 10:04 PM EST Yuan Webber MD POINT OF CARE TEST ORDERABLE S Performing Organization Address City/State/ZIP Code Phon e Number [address] Prepare Albumin 5% in [...] Address City/State/ZIP Code Phon e Number [address] POCT Glucose (07/08/2017 8:28 PM EST) athologist Signature POC Glucose 195 65 - 199 KATALINA RYAN mg/dL [facility] Comment: Supplemental ranges: <140 mg/dL before meals <180 mg/dL all other times of the day Specimen Anatomical Collection Method Collection Time Receive d Time (Source) Location / / Volume Laterality Blood specimen 07/08/2017 8:28 PM 017 8:28 (specimen) EST PM EST Yuan Webber MD POINT OF CARE TEST ORDERABLE S Performing Organization Address City/State/[place] [address] (ABNORMAL) POCT Glucose (07/08/2017 7:13 PM EST) P athologist Signature POC Glucose 220 (H) 65 - 199 [facility]dL [facility] Comment: Supplemental ranges: <140 mg/dL before meals <180 mg/dL all other times of the day Specimen Anatomical Collection Method Collection Time Receive d Time (Source) Location / / Volume Laterality Blood specimen 07/08/2017 7:13 PM 017 7:13 (specimen) EST PM EST Yuan Webber MD POINT OF CARE TEST ORDERABLE S Performing Organization Address City/State/ZIP Code Phon e Number [address] POCT Glucose (07/08/2017 5:04 PM EST) athologist Signature POC Glucose 147 65 - 199 [facility] Comment: Supplemental ranges: <140 mg/dL before meals <180 mg/dL all other times of the day Specimen Anatomical Collection Method Collection Time Receive d Time (Source) Location / / Volume Laterality Blood specimen 07/08/2017 5:04 PM 017 5:04 (specimen) EST PM EST Yuan Webber MD POINT OF CARE TEST ORDERABLE S Performing Organization Address City/State/[place] [address] (ABNORMAL) BLOOD GAS 2 ARTERIAL (07/08/2017 4:13 PM EST) Analysis Performed At Patho logist Time Signature pH Art 7.38 7.35 - [facility] 7.45 [facility] pCO2 Art 36 35 - 45 [facility] LABORATORY pO2 Art 91 85 - 104 [facility] LABORATORY HCO3 Art 20.9 20.0 - [facility] 26.0 [facility] mmol/L [facility] LABORATORY BE Art -4.2 (L) -3.0 - 3.0 [facility] mmol/L [facility] Hgb Blood Gas 11.7 (L) 13.7 - [facility] 16.5 gm/dL [facility] O2HB Art 95.1 94.0 - [facility] 97.0 % [facility] COHB Art 0.6 % [facility] FIO2 Art 40 % [facility] PF Ratio Art 228 [facility]ORY Specimen Anatomical Collection Method Collection Time Receive d Time (Source) Location / / Volume Laterality Blood specimen 07/08/2017 4:13 PM 017 4:13 (specimen) EST PM EST Yuan Webber MD CHEMISTRY ORDERABLES Performing Organization Address City/State/[place] [address] POCT Glucose (07/08/2017 4:01 PM EST) P athologist Signature POC Glucose 148 65 - 199 [facility] mg/dL [facility] Comment: Supplemental ranges: <140 mg/dL before meals <180 mg/dL all other times of the day Specimen Anatomical Collection Method Collection Time Receive d Time (Source) Location / / Volume Laterality Blood specimen 07/08/2017 4:01 PM 017 4:01 (specimen) EST PM EST Yuan Webber MD POINT OF CARE TEST ORDERABLE S Performing Organization Address City/State/ZIP Code Phon e Number [address] POCT Glucose (07/08/2017 3:21 PM EST) athologist Signature POC Glucose 118 65 - 199 KATALINA ZHAORYAN mg/dL [facility] Comment: Supplemental ranges: <140 mg/dL before meals <180 mg/dL all other times of the day Specimen Anatomical Collection Method Collection Time Receive d Time (Source) Location / / Volume Laterality Blood specimen 07/08/2017 3:21 PM 017 3:21 (specimen) EST PM EST Yuan Webber MD POINT OF CARE TEST ORDERABLE S Performing Organization Address City/State/ZIP Code Phon e Number [address] POCT Glucose (07/08/2017 2:01 PM EST) athologist Signature POC Glucose 129 65 - 199 KATALINA ZHAORYAN mg/dL [facility] Comment: Supplemental ranges: <140 mg/dL before meals <180 mg/dL all other times of the day Specimen Anatomical Collection Method Collection Time Receive d Time (Source) Location / / Volume Laterality Blood specimen 07/08/2017 2:01 PM 017 2:01 (specimen) EST PM EST Yuan Webber MD POINT OF CARE TEST ORDERABLE S Performing Organization Address City/State/[place] [address] POCT Glucose (07/08/2017 11:53 AM EST) athologist Signature POC Glucose 156 65 - 199 KATALINA ZHAORYAN mg/dL [facility] Comment: Supplemental ranges: <140 mg/dL before meals <180 mg/dL all other times of the day Specimen Anatomical Collection Method Collection Time Receive d Time (Source) Location / / Volume Laterality Blood specimen 07/08/2017 11:53 7 (specimen) AM EST 11:53 AM EST Yuan Webber MD POINT OF CARE TEST ORDERABLE S Performing Organization Address City/State/ZIP Code Phon e Number [address] POCT Glucose (07/08/2017 11:04 AM EST) athologist Signature POC Glucose 181 65 - 199 [facility] Comment: Supplemental ranges: <140 mg/dL before meals <180 mg/dL all other times of the day Specimen Anatomical Collection Method Collection Time Receive d Time (Source) Location / / Volume Laterality Blood specimen 07/08/2017 11:04 7 (specimen) AM EST 11:04 AM EST Yuan Webber MD POINT OF CARE TEST ORDERABLE S Performing Organization Address City/[facility]/[place] [address] (ABNORMAL) POCT Glucose (07/08/2017 9:24 AM EST) athologist Signature POC Glucose 203 (H) 65 - 199 [facility] Comment: Supplemental ranges: <140 mg/dL before meals <180 mg/dL all other times of the day Specimen Anatomical Collection Method Collection Time Receive d Time (Source) Location / / Volume Laterality Blood specimen 07/08/2017 9:24 AM 017 9:24 (specimen) EST AM EST Yuan Webber MD POINT OF CARE TEST ORDERABLE S Performing Organization Address City/State/[place] [address] APTT (07/08/2017 8:40 AM EST) athologist Signature PTT 33 25 - 35 sec [facility] Comment: The recommended therapeutic range for fu ll dose, unfractionated heparin at [facility] is 80 ? 114 seconds. The [...] City/[facility]/[place] [address] (ABNORMAL) Prothrombin Time (07/08/2017 [...] City/[facility]/[place] [address] (ABNORMAL) POCT Glucose (07/08/2017 7:38 AM EST) P athologist Signature POC Glucose 232 (H) 65 - 199 [facility] mg/dL [facility] Comment: Supplemental ranges: <140 mg/dL before meals <180 mg/dL all other times of the day Specimen Anatomical Collection Method Collection Time Receive d Time (Source) Location / / Volume Laterality Blood specimen 07/08/2017 7:38 AM 017 7:38 (specimen) EST AM EST Yuan Webber MD POINT OF CARE TEST ORDERABLE S Performing Organization Address City/[facility]/[place] [address] (ABNORMAL) POCT Glucose (07/08/2017 7:07 AM EST) athologist Signature POC Glucose 234 (H) 65 - 199 [facility] mg/dL [facility] Comment: Supplemental ranges: <140 mg/dL before meals <180 mg/dL all other times of the day Specimen Anatomical Collection Method Collection Time Receive d Time (Source) Location / / Volume Laterality Blood specimen 07/08/2017 7:07 AM 017 7:07 (specimen) EST AM EST Yuan Webber MD POINT OF CARE TEST ORDERABLE S Performing Organization Address City/State/[place] [address] (ABNORMAL) POCT Glucose (07/08/2017 6:04 AM EST) athologist Signature POC Glucose 225 (H) 65 - 199 [facility] mg/dL [facility] Comment: Supplemental ranges: <140 mg/dL before meals <180 mg/dL all other times of the day Specimen Anatomical Collection Method Collection Time Receive d Time (Source) Location / / Volume Laterality Blood specimen 07/08/2017 6:04 AM 017 6:04 (specimen) EST AM EST Yuan Webber MD POINT OF CARE TEST ORDERABLE S Performing Organization Address City/State/[place] [address] (ABNORMAL) POCT Glucose (07/08/2017 5:31 AM EST) athologist Signature POC Glucose 216 (H) 65 - 199 [facility] Comment: Supplemental ranges: <140 mg/dL before meals <180 mg/dL all other times of the day Specimen Anatomical Collection Method Collection Time Receive d Time (Source) Location / / Volume Laterality Blood specimen 07/08/2017 5:31 AM 017 5:31 (specimen) EST AM EST Yuan Webber MD POINT OF CARE TEST ORDERABLE S Performing Organization Address City/State/[place] [address] (ABNORMAL) POCT Glucose (07/08/2017 4:52 AM EST) P athologist Signature POC Glucose 257 (H) 65 - 199 [facility] mg/dL [facility] Comment: Supplemental ranges: <140 mg/dL before meals <180 mg/dL all other times of the day Specimen Anatomical Collection Method Collection Time Receive d Time (Source) Location / / Volume Laterality Blood specimen 07/08/2017 4:52 AM 017 4:52 (specimen) EST AM EST Daphne Shahid MD POINT OF CARE TEST ORDERABLE S Performing Organization Address City/State/ZIP [place] [address] (ABNORMAL) BLOOD GAS 2 ARTERIAL (07/08/2017 4:04 AM EST) Analysis Performed At Patho logist Time Signature pH Art 7.30 (L) 7.35 - [facility] 7.45 [facility] pCO2 Art 41 35 - 45 [facility] LABORATORY pO2 Art 83 (L) 85 - 104 [facility] LABORATORY HCO3 Art 19.6 (L) 20.0 - [facility] 26.0 [facility] mmol/[facility] BE Art -6.8 (L) -3.0 - 3.0 [facility] mmol/L [facility] Hgb Blood Gas 12.2 (L) 13.7 - [facility] 16.5 gm/dL [facility] O2HB Art 93.5 (L) 94.0 - [facility] 97.0 % [facility] COHB Art 0.4 % [facility] Comment: Noted by band instrument maker. FIO2 Art 40 % [facility] PF Ratio Art 208 [facility] Specimen Anatomical Collection Method Collection Time Receive d Time (Source) Location / / Volume Laterality Blood specimen 07/08/2017 4:04 AM 017 4:04 (specimen) EST AM EST Daphne Shahid MD CHEMISTRY ORDERABLES Performing Organization Address City/[facility]/ZIP Code Phon e Number [address] Scan, Peripheral Blood (07/08/2017 [...] Address City/State/ZIP Code Phon e Number [address] (ABNORMAL) Differential, Automated (07/08/2017 4:00 AM EST) Patholo gist Method Time Signature Neutrophils % 85.4 % [facility] Neutr Abs (ANC) 16.07 (H) 1.70 - [facility] 6.10 [facility] x10(3)/[facility] L LABORATORY Lymphocytes % 3.5 % [facility] Lymphocytes Abs 0.6 (L) 0.9 - 3.2 [facility] x10(3)/[facility] LABORATORY Monocytes % 10.4 % [facility] Monocyte Abs 2.0 (H) 0.3 - 0.9 [facility] x10(3)/[facility] LABORATORY Eosinophils % 0.0 % [facility] Eosinophils Abs 0.0 0.0 - 0.4 [facility] x10(3)/[facility] LABORATORY Basophils % 0.1 % [facility] Basophils Abs 0.0 0.0 - 0.1 [facility] x10(3)/[facility] LABORATORY Immature Gran % 0.60 % [facility] [...] Gran Abs 0.12 (H) 0.00 - 0.04 x10(3)/[facility] LABORATORY Specimen Anatomical Collection Method Collection Time Receive d Time (Source) Location / / Volume Laterality Blood specimen 07/08/2017 4:00 AM 017 4:09 (specimen) EST AM EST Resulting Agency Comment Spec In Lab Yuan Webber MD HEMATOLOGY ORDERABLES Performing Organization Address City/State/Z[place] [address] (ABNORMAL) Hemogram (07/08/2017 4:00 AM EST) Analysis Performed At Patho logist Time Signature WBC 18.8 (H) 4.0 - 9.5 [facility] x10(3)/[facility] LABORATORY RBC 4.00 (L) 4.58 - [facility] 5.54 [facility] x10(6)/[facility] LABORATORY Hemoglobin 11.9 (L) 13.7 - [facility] 16.5 gm/dL [facility] Hematocrit 35.9 (L) 40.5 - KATALINA DAVIS 48.5 % [facility] MCV 89.8 82.9 - [facility] 93.1 [facility] LABORATORY MCH 29.8 27.5 - KATALINA OLIVASCK 32.1 pg [facility] MCHC 33.1 32.0 - KATALINA DAVIS 35.7 gm/dL [facility] Platelets 232 145 - 357 [facility] x10(3)/[facility] LABORATORY RDWSD 47.6 (H) 36.0 - KATALINA DAVIS 45.0 [facility] LABORATORY RDWCV 14.5 (H) 11.4 - [facility] 13.8 % [facility] MPV 9.5 7.6 - 12.9 [facility] LABORATORY nRBC % Auto 0.0 % [facility] nRBC Abs Auto 0.000 0.000 - [facility] 0.000 [facility] x10(3)/[facility] LABORATORY Specimen Anatomical Collection Method Collection Time Receive d Time (Source) Location / / Volume Laterality Blood specimen 07/08/2017 4:00 AM 017 4:09 (specimen) EST AM EST Resulting Agency Comment Spec In Lab Yuan Webber MD HEMATOLOGY ORDERABLES Performing Organization Address City/State/ZIP Code Phon e Number [place] [id number]OS[address] Drive (ABNORMAL) Electrolytes panel (07/08/2017 4:00 AM EST) P athologist Signature Sodium 139 135 - 145 [facility] mmol/L [facility] Potassium 4.7 3.5 - 5.0 [facility] mmol/L [facility] Comment: result rechecked-JLK Please [...] (L) 22 - 31 mmol/L [facility] Anion Gap 14 5 - 15 mmol/L KATALINA RYAN [facility] LABORATORY Specimen Anatomical Collection Method Collection Time Receive d Time (Source) Location / / Volume Laterality Blood specimen 07/08/2017 4:00 AM 017 4:10 (specimen) EST AM EST Resulting Agency Comment Spec In Lab Yuan Webber MD CHEMISTRY ORDERABLES Performing Organization Address City/State/[place] [address] (ABNORMAL) Cardiac Enzymes (LEB/CGP) (07/08/2017 4:00 AM EST) P athologist Signature Troponin-T 1.88 (H) 0.00 - [facility] 0.00 ng/mL [facility] Comment: The 99th percentile [...] additional sample may be indicated. Reference: Third Faxon Definition of Myocardial Infarction. Journal of the [employer] 2012;60:1581-98 CK, Total 413 [...] Address City/State/ZIP Code Phon e Number [address] (ABNORMAL) Glucose, fasting (07/08/2017 4:00 AM EST) P athologist Signature Glucose 287 (H) 65 - 99 [facility] Fasting mg/dL [facility] Comment: ?Fasting* Glucose Interpretive [...] of Diabetes Mellitus, Position Statement from the [employer]. ??Diabete s Care, Volume 33, Supplement 1, Jul 2009 Specimen Anatomical Collection Method Collection Time Receive d Time (Source) Location / / Volume Laterality Blood specimen 07/08/2017 4:00 AM 017 4:09 (specimen) EST AM EST Resulting Agency Comment Spec In Lab Yuan Webber MD CHEMISTRY ORDERABLES Performing Organization Address City/[facility]/[place] [address] (ABNORMAL) Creatinine (07/08/2017 4:00 AM EST) Analysis Performed At Patho logist Time Signature Creatinine 1.55 (H) 0.80 - [facility] 1.50 mg/dL [facility] Estimated GFR 44 (L) >=60 [facility] Comment: The reported eGFR should be multiplied b y 1.2 for patients. The MDRD is not an appropriate measure o f renal function for patients with body mass extremes or in patients with acute kidney failure. http://[employer]/DHadelitakdep http://[employer]/DHMCnkf Specimen Anatomical Collection Method Collection Time Receive d Time (Source) Location / / Volume Laterality Blood specimen 07/08/2017 4:00 AM 017 4:09 (specimen) EST AM EST Resulting Agency Comment Spec In Lab Yuan Webber MD CHEMISTRY ORDERABLES Performing Organization Address City/[facility]/ZIP Code Phon e Number [address] BUN (07/08/2017 4:00 AM EST) P athologist Signature BUN 16 10 - 20 KATALINA RYAN mg/dL [facility] Specimen Anatomical Collection Method Collection Time Receive d Time (Source) Location / / Volume Laterality Blood specimen 07/08/2017 4:00 AM 017 4:09 (specimen) EST AM EST Resulting Agency Comment Spec In Lab Yuan Webber MD CHEMISTRY ORDERABLES Performing Organization Address City/[facility]/[place] [address] (ABNORMAL) POCT Glucose (07/08/2017 3:00 AM EST) athologist Signature POC Glucose 273 (H) 65 - 199 [facility]/dL [facility] Comment: Supplemental ranges: <140 mg/dL before meals <180 mg/dL all other times of the day Specimen Anatomical Collection Method Collection Time Receive d Time (Source) Location / / Volume Laterality Blood specimen 07/08/2017 3:00 AM 017 3:00 (specimen) EST AM EST Daphne Shahid MD POINT OF CARE TEST ORDERABLE S Performing Organization Address City/[facility]/ZIP Code Phon e Number [address] (ABNORMAL) POCT Glucose (07/08/2017 1:57 AM EST) P athologist Signature POC Glucose 288 (H) 65 - 199 [facility] mg/dL [facility] Comment: Supplemental ranges: <140 mg/dL before meals <180 mg/dL all other times of the day Specimen Anatomical Collection Method Collection Time Receive d Time (Source) Location / / Volume Laterality Blood specimen 07/08/2017 1:57 AM 017 1:57 (specimen) EST AM EST Daphne Shahid MD POINT OF CARE TEST ORDERABLE S Performing Organization Address City/[facility]/[place] [address] (ABNORMAL) POCT Glucose (07/08/2017 1:01 AM EST) athologist Signature POC Glucose 315 (H) 65 - 199 [facility] mg/dL [facility] Comment: Supplemental ranges: <140 mg/dL before meals <180 mg/dL all other times of the day Specimen Anatomical Collection Method Collection Time Receive d Time (Source) Location / / Volume Laterality Blood specimen 07/08/2017 1:01 AM 017 1:01 (specimen) EST AM EST Daphne Shahid MD POINT OF CARE TEST ORDERABLE S Performing Organization Address City/[facility]/[place] [address] (ABNORMAL) BLOOD GAS 2 ARTERIAL (07/08/2017 12:09 AM EST) athologist Signature pH Art 7.26 7.35 - [facility] (Critical) 7.45 [facility] Comment: Noted by band instrument [...] [facility] Comment: Noted by band instrument maker. FIO2 Art 40 % [facility] PF Ratio Art 240 [facility] LABORATORY Specimen Anatomical Collection Method Collection Time Receive d Time (Source) Location / / Volume Laterality Blood specimen Arterial Draw / 07/08/2017 12:09 2016 5:31 (specimen) Unknown AM EST AM EST Resulting Agency Comment Spec In Lab Samy Maldonado MD CHEMISTRY ORDERABLES Performing Organization Address City/State/[place]IP [place] [address] (ABNORMAL) POCT Glucose (07/07/2017 10:56 PM EST) P athologist Signature POC Glucose 292 (H) 65 - 199 [facility] mg/dL [facility] Comment: Supplemental ranges: <140 mg/dL before meals <180 mg/dL all other times of the day Specimen Anatomical Collection Method Collection Time Receive d Time (Source) Location / / Volume Laterality Blood specimen 07/07/2017 10:56 7 (specimen) PM EST 10:56 PM EST Daphne T Kono MD POINT OF CARE TEST ORDERABLE S Performing Organization Address City/State/[place]IP [place] [address] (ABNORMAL) BLOOD GAS 2 ARTERIAL (07/07/2017 10:04 PM EST) athologist Signature pH Art 7.22 7.35 - [facility] (Critical) 7.45 [facility] Comment: Noted by band instrument [...] [facility] Comment: Noted by band instrument maker. FIO2 Art 40 % [facility] PF Ratio Art 235 [facility] LABOR[facility]ORY Specimen Anatomical Collection Method Collection Time Receive d Time (Source) Location / / Volume Laterality Blood specimen 07/07/2017 10:04 7 (specimen) PM EST 10:04 PM EST Daphne Shahid MD CHEMISTRY ORDERABLES Performing Organization Address City/[facility]/ZIP Code Phon e Number [address] (ABNORMAL) Hemoglobin (07/07/2017 10:00 PM EST) P athologist Signature Hemoglobin 12.8 (L) 13.7 - [facility] 16.5 gm/dL [facility] Specimen Anatomical Collection Method Collection Time Receive d Time (Source) Location / / Volume Laterality Blood specimen 07/07/2017 10:00 7 (specimen) PM EST 10:13 PM EST Resulting Agency Comment Spec In Lab Yuan Webber MD HEMATOLOGY ORDERABLES Performing Organization Address City/[facility]/[place] [address] (ABNORMAL) Potassium (07/07/2017 10:00 PM EST) P athologist Signature Potassium 3.4 (L) 3.5 - 5.0 [facility] mmol/L [facility] Comment: Please note: ??Patients [...] Organization Address City/State/[place] [address] (ABNORMAL) POCT Glucose (07/07/2017 8:49 PM EST) P athologist Signature POC Glucose 241 (H) 65 - 199 [facility] mg/dL [facility] Comment: Supplemental ranges: <140 mg/dL before meals <180 mg/dL all other times of the day Specimen Anatomical Collection Method Collection Time Receive d Time (Source) Location / / Volume Laterality Blood specimen 07/07/2017 8:49 PM 017 8:49 (specimen) EST PM EST Daphne Shahid MD POINT OF CARE TEST ORDERABLE S Performing Organization Address City/[facility]/[place] [address] Prepare Albumin 5% in [...] City/[facility]/[place] [address] EKG 12 Lead (07/07/2017 7:17 PM EST) Component Value Ref Range Test Analysis Performed Pathologis t Method Time At Signature Ventricular rate 75 BPM MUSE SYSTEM Atrial Rate 75 BPM MUSE SYSTEM P-R Interval 168 ms MUSE SYSTEM QRS Duration 104 ms MUSE SYSTEM Q-T Interval 462 ms MUSE SYSTEM QTC Calculated 515 ms MUSE SYSTEM (Bezet) Calculated P Stamps 52 degrees MUSE SYSTEM Calculated R Stamps -40 degrees MUSE SYSTEM Calculated T Stamps 39 degrees MUSE SYSTEM INTERPRETATION Normal sinus [...] - [facility] (Critical) 7.45 [facility] Comment: Noted by band instrument [...] [facility] Comment: Noted by band instrument maker. [...] [facility] Comment: Noted by band instrument maker. FIO2 Art 100 % [facility] PF Ratio Art 238 [facility] LABORATORY Specimen Anatomical Collection Method Collection Time Receive d Time (Source) Location / / Volume Laterality Blood specimen 07/07/2017 6:57 PM 017 6:57 (specimen) EST PM EST Daphne Shahid MD CHEMISTRY ORDERABLES Performing Organization Address City/State/[place] [address] (ABNORMAL) BLOOD GAS 2 ARTERIAL (07/07/2017 5:31 PM EST) P athologist Signature pH Art 7.29 7.35 - [facility] (Critical) 7.45 [facility] Comment: Noted by band instrument [...] City/[facility]/ZIP Code Phon e Number [address] Fibrinogen (07/07/2017 5:30 PM EST) P athologist Signature Fibrinogen 224 180 - 510 [facility] mg/dL [facility] Comment: Called by: JEET, [...] ORDERABLES Performing Organization Address City/[facility]/ZIP [facility] Phon e Number [address] APTT (07/07/2017 5:30 PM EST) P athologist Signature PTT 30 25 - 35 sec [facility] Comment: The recommended therapeutic range for fu ll dose, unfractionated heparin at [facility] is 80 ? 114 seconds. The [...] HEMATOLOGY ORDERABLES Performing Organization Address City/[facility] [place] [address] (ABNORMAL) Prothrombin Time (07/07/2017 [...] HEMATOLOGY ORDERABLES Performing Organization Address City/[facility] [place] [address] (ABNORMAL) Hemogram (07/07/2017 5:30 PM EST) P athologist Signature WBC 19.6 (H) 4.0 - 9.5 [facility] x10(3)/[facility] LABORATORY RBC 3.08 (L) 4.58 - [facility] 5.54 [facility] x10(6)/[facility] LABORATORY Hemoglobin 9.2 (L) 13.7 - [facility] 16.5 gm/dL [facility] Hematocrit 28.0 (L) 40.5 - [facility] 48.5 % [facility] Comment: This result has been called to MONICA MORAN by DONALD GROSSMAN on 07 07 2017 at 1759, and has been read back. MCV 90.9 82.9 - 93.1 [facility] LABORATORY MCH 29.9 27.5 - 32.1 pg [facility] MCHC 32.9 32.0 - 35.7 gm/dL [facility] LABORATORY Platelets 155 145 - 357 x10(3)/[facility] LABORATORY RDWSD 46.5 (H) 36.0 - 45.0 [facility] LABORATORY RDWCV 14.1 (H) 11.4 - 13.8 % [facility] LABORATORY MPV 9.5 7.6 - 12.9 [facility] [...] Organization Address City/State/[place] [address] Prepare Platelets, Apheresis (07/07/2017 5:00 PM EST) P athologist Signature Dispensed? Yes [facility] Specimen Anatomical Collection Method Collection Time Receive d Time (Source) Location / / Volume Laterality Blood specimen 07/07/2017 5:00 PM 017 4:58 (specimen) EST PM EST Daphne Shahid MD BLOOD BANK ORDERABLES Performing Organization Address City/State/Z[place] [address] Platelet count (07/07/2017 4:55 PM EST) P athologist Signature Platelets 177 145 - 357 [facility] DAVIS x10(3)/[facility] LABORATORY Plat Immature 1.5 0.0 - 7.4 [facility] % % [facility] Comment: Limitation of the Immature Platelet Frac tion (IPF)-May be less reliable when the platelet count is less than 83g029/u L due to statistical imprecision. The IPF [...] in a decreased state of production. References: [employer] The Clinical Value of the Immature Platelet Fraction (IPF) in Cell Recovery Document Number 10-1143 12/2010 [employer] The Role of the Imm ature [...] Organization Address City/State/[place] [address] (ABNORMAL) Hemoglobin and Hematocrit, blood (07/07/2017 4:55 PM EST) P athologist Signature Hemoglobin 9.1 (L) 13.7 - 16.5 [facility] gm/dL [facility] Comment: This result has [...] Organization Address City/State/[place] [address] (ABNORMAL) BLOOD GAS 2 ARTERIAL (07/07/2017 4:38 PM EST) Analysis Performed At Patho logist Time Signature pH Art 7.37 7.35 - [facility] 7.45 [facility] pCO2 Art 44 35 - 45 [facility] mmHg [facility] pO2 Art 322 (H) 85 - 104 [facility] LABORATORY HCO3 Art 24.9 20.0 - [facility] 26.0 [facility] mmol/L [facility] LABORATORY BE Art -0.4 -3.0 - 3.0 [facility] mmol/L [facility] Hgb Blood Gas 10.1 (L) 13.7 - [facility] 16.5 gm/dL [facility] O2HB Art 98.7 (H) 94.0 - [facility] 97.0 % [facility] COHB Art 0.1 % [facility] [...] mmol/L [facility] Comment: Noted by band instrument [...] Organization Address City/State/[place] [address] (ABNORMAL) BLOOD GAS 2 VENOUS (07/07/2017 4:06 PM EST) Analysis Performed At Patho logist Time Signature pH Cody 7.31 (L) 7.32 - [facility] 7.42 [facility] pCO2 Cody 47 41 - 51 [facility] LABORATORY pO2 Cody 53 (H) 25 - 40 [facility] LABORATORY HCO3 Cody 22.7 mmol/L [facility] BE Cody -3.7 mmol/L [facility] Hgb Blood Gas 10.2 (L) 13.7 - [facility] 16.5 gm/dL [facility] O2HB Cody 81.0 % [facility] [...] mmol/L [facility] Comment: Noted by band instrument [...] [facility] BGas Source Venous [facility] LABORATORY Specimen Anatomical Collection Method Collection Time Receive d Time (Source) Location / / Volume Laterality Blood specimen 07/07/2017 4:06 PM 017 4:06 (specimen) EST PM EST Daphne Shahid MD CHEMISTRY ORDERABLES Performing Organization Address City/State/[place] [address] (ABNORMAL) BLOOD GAS 2 ARTERIAL (07/07/2017 4:05 PM EST) Analysis Performed At Patho logist Time Signature pH Art 7.36 7.35 - [facility] 7.45 [facility] pCO2 Art 40 35 - 45 [facility] mmHg [facility] pO2 Art 282 (H) 85 - 104 [facility] LABORATORY HCO3 Art 22.1 20.0 - [facility] 26.0 [facility] mmol/L [facility] LABORATORY BE Art -3.4 (L) -3.0 - 3.0 [facility] mmol/L [facility] Hgb Blood Gas 10.2 (L) 13.7 - [facility] 16.5 gm/dL [facility] O2HB Art 98.4 (H) 94.0 - [facility] 97.0 % [facility] COHB Art 0.3 % [facility] [...] mmol/L [facility] Comment: Noted by band instrument [...] Organization Address City/State/[place] [address] (ABNORMAL) BLOOD GAS 2 ARTERIAL (07/07/2017 2:29 PM EST) Analysis Performed At Patho logist Time Signature pH Art 7.43 7.35 - [facility] 7.45 [facility] pCO2 Art 36 35 - 45 [facility] LABORATORY pO2 Art 221 (H) 85 - 104 [facility] LABORATORY HCO3 Art 23.2 20.0 - [facility] 26.0 [facility] mmol/[facility] LABORATORY BE Art -1.2 -3.0 - 3.0 [facility] mmol/L [facility] Hgb Blood Gas 13.9 13.7 - [facility] 16.5 gm/dL [facility] O2HB Art 97.8 (H) 94.0 - [facility] 97.0 % [facility] COHB Art 1.1 % [facility] [...] Organization Address City/State/Z[place] [address] Prepare Coag Factors (Non-Hemophilia) (07/07/2017 1:25 PM EST) P athologist Signature Dispensed? Yes [facility] Specimen Anatomical Collection Method Collection Time Receive d Time (Source) Location / / Volume Laterality Blood specimen 07/07/2017 1:25 PM 017 1:21 (specimen) EST PM EST Daphne Shahid MD BLOOD BANK ORDERABLES Performing Organization Address City/State/ZIP Code Phon e Number [address] Prepare RBC (07/07/2017 1:10 PM EST) P athologist Signature Dispensed? Yes [facility] Specimen Anatomical Collection Method Collection Time Receive d Time (Source) Location / / Volume Laterality Blood specimen 07/07/2017 1:10 PM 017 1:05 (specimen) EST PM EST Daphne Shahid MD BLOOD BANK ORDERABLES Performing Organization Address City/State/[place] [address] POCT Glucose (07/07/2017 11:56 AM EST) P athologist Signature POC Glucose 188 65 - 199 [facility] Comment: Supplemental ranges: <140 mg/dL before meals <180 mg/dL all other times of the day Specimen Anatomical Collection Method Collection Time Receive d Time (Source) Location / / Volume Laterality Blood specimen 07/07/2017 11:56 7 (specimen) AM EST 11:56 AM EST Daphne Shahid MD POINT OF CARE TEST ORDERABLE S Performing Organization Address City/[facility]/[place] [address] POCT Glucose (07/07/2017 11:05 AM EST) P athologist Signature POC Glucose 168 65 - 199 [facility]/dL [facility] Comment: Supplemental ranges: <140 mg/dL before meals <180 mg/dL all other times of the day Specimen Anatomical Collection Method Collection Time Receive d Time (Source) Location / / Volume Laterality Blood specimen 07/07/2017 11:05 7 (specimen) AM EST 11:05 AM EST Daphne Shahid MD POINT OF CARE TEST ORDERABLE S Performing Organization Address City/State/[place] [address] POCT Glucose (07/07/2017 10:02 AM EST) athologist Signature POC Glucose 191 65 - 199 [facility] mg/dL [facility] Comment: Supplemental ranges: <140 mg/dL before meals <180 mg/dL all other times of the day Specimen Anatomical Collection Method Collection Time Receive d Time (Source) Location / / Volume Laterality Blood specimen 07/07/2017 10:02 7 (specimen) AM EST 10:02 AM EST Daphne Shahid MD POINT OF CARE TEST ORDERABLE S Performing Organization Address City/State/ZIP Code Phon e Number [address] POCT Glucose (07/07/2017 7:53 AM EST) athologist Signature POC Glucose 178 65 - 199 [facility] mg/dL [facility] Comment: Supplemental ranges: <140 mg/dL before meals <180 mg/dL all other times of the day Specimen Anatomical Collection Method Collection Time Receive d Time (Source) Location / / Volume Laterality Blood specimen 07/07/2017 7:53 AM 017 7:53 (specimen) EST AM EST Daphne Shahid MD POINT OF CARE TEST ORDERABLE S Performing Organization Address City/State/[place] [address] POCT Glucose (07/07/2017 7:03 AM EST) athologist Signature POC Glucose 188 65 - 199 [facility] mg/dL [facility] Comment: Supplemental ranges: <140 mg/dL before meals <180 mg/dL all other times of the day Specimen Anatomical Collection Method Collection Time Receive d Time (Source) Location / / Volume Laterality Blood specimen 07/07/2017 7:03 AM 017 7:03 (specimen) EST AM EST Daphne Shahid MD POINT OF CARE TEST ORDERABLE S Performing Organization Address City/State/[place] [address] (ABNORMAL) POCT Glucose (07/07/2017 6:17 AM EST) athologist Signature POC Glucose 207 (H) 65 - 199 [facility] mg/dL [facility] Comment: Supplemental ranges: <140 mg/dL before meals <180 mg/dL all other times of the day Specimen Anatomical Collection Method Collection Time Receive d Time (Source) Location / / Volume Laterality Blood specimen 07/07/2017 6:17 AM 017 6:17 (specimen) EST AM EST Daphne Shahid MD POINT OF CARE TEST ORDERABLE S Performing Organization Address City/State/ZIP Code Phon e Number [place] [id number] Differential, Automated (07/07/2017 5:15 AM EST) [facility] Neutrophils % 69.7 % [facility] Neutr Abs (ANC) 5.32 1.70 - [facility] 6.10 [facility] x10(3)/[facility] LABORATORY Lymphocytes % 16.3 % [facility] Lymphocytes Abs 1.2 0.9 - 3.2 [facility] x10(3)/[facility] LABORATORY Monocytes % 10.5 % [facility] Monocyte Abs 0.8 0.3 - 0.9 [facility] x10(3)[facility] LABORATORY Eosinophils % 2.5 % [facility] Eosinophils Abs 0.2 0.0 - 0.4 [facility] x10(3)/[facility] LABORATORY Basophils % 0.7 % [facility] Basophils Abs 0.0 0.0 - 0.1 [facility] x10(3)/[facility] LABORATORY Immature Gran % 0.30 [...] Melisa Gran Abs 0.02 0.00 - 0.04 x10(3)/[facility] MAR Y [facility] LABORATORY Specimen Anatomical Collection Method Collection Time Receive d Time (Source) Location / / Volume Laterality Blood specimen 07/07/2017 5:15 AM 017 5:34 (specimen) EST AM EST Resulting Agency Comment Spec In Lab Daphne Shahid MD HEMATOLOGY ORDERABLES Performing Organization Address City/[facility]/ZIP [place] [address] (ABNORMAL) Hemogram (07/07/2017 5:15 AM EST) Analysis Performed At Patho logist Time Signature WBC 7.6 4.0 - 9.5 [facility] x10(3)/[facility] LABORATORY RBC 4.82 4.58 - [facility] 5.54 [facility] x10(6)/[facility] LABORATORY Hemoglobin 14.4 13.7 - [facility] 16.5 gm/dL [facility] Hematocrit 42.1 40.5 - [facility] 48.5 % [facility] MCV 87.3 82.9 - [facility] 93.1 [facility] LABORATORY MCH 29.9 27.5 - [facility] 32.1 pg [facility] MCHC 34.2 32.0 - [facility] 35.7 gm/dL [facility] Platelets 188 145 - 357 [facility] x10(3)/[facility] LABORATORY RDWSD 45.1 (H) 36.0 - [facility] 45.0 [facility] LABORATORY RDWCV 14.3 (H) 11.4 - [facility] 13.8 % [facility] LABORATORY MPV 9.4 7.6 - 12.9 [facility] LABORATORY nRBC % Auto 0.0 % [facility] nRBC Abs Auto 0.000 0.000 - [facility] 0.000 [facility] x10(3)/[facility] LABORATORY Specimen Anatomical Collection Method Collection Time Receive d Time (Source) Location / / Volume Laterality Blood specimen 07/07/2017 5:15 AM 017 5:34 (specimen) EST AM EST Resulting Agency Comment Spec In Lab Daphne Shahid MD HEMATOLOGY ORDERABLES Performing Organization Address City/State/[place] [address] (ABNORMAL) APTT (07/07/2017 5:15 AM EST) athologist Signature PTT 69 (H) 25 - 35 sec [facility] Comment: The recommended therapeutic range for fu ll dose, unfractionated heparin at [facility] is 80 ? 114 seconds. The [...] City/[facility]/[place] [address] Magnesium (07/07/2017 5:15 AM EST) athologist Signature Magnesium 0.94 0.69 - 1.07 [facility] mmol/L [facility] Specimen Anatomical Collection Method Collection Time Receive d Time (Source) Location / / Volume Laterality Blood specimen 07/07/2017 5:15 AM 017 5:34 (specimen) EST AM EST Resulting Agency Comment Spec In Lab Daphne Shahid MD CHEMISTRY ORDERABLES Performing Organization Address City/[facility]/[place] [address] (ABNORMAL) Basic Metabolic Panel (non-fasting) (07/07/2017 5:15 AM EST) P athologist Signature Glucose Lvl 203 (H) 65 - 199 [facility] mg/dL [facility] Comment: Diabetes: [...] [facility] Estimated GFR >60 >=60 [facility] LABORATORY Comment: The reported eGFR should be multiplied b y 1.2 for patients. The MDRD is not an appropriate measure o f renal function for patients with body mass extremes or in patients with acute kidney failure. http://AskNshare/DHnkdep http://AskNshare/DHMCnkf Specimen Anatomical Collection Method Collection Time Receive d Time (Source) Location / / Volume Laterality Blood specimen 07/07/2017 5:15 AM 017 5:34 (specimen) EST AM EST Resulting Agency Comment Spec In Lab Daphne Shahid MD CHEMISTRY ORDERABLES Performing Organization Address City/State/[place] [address] HOSPITAL [address] (ABNORMAL) Cardiac Enzymes (LEB/CGP) (07/07/2017 5:15 AM EST) P athologist Signature Troponin-T 2.07 (H) 0.00 - [facility] 0.00 ng/mL [facility] Comment: The 99th percentile [...] additional sample may be indicated. Reference: Third Faxon Definition of Myocardial Infarction. Journal of the [employer] 2012;60:1581-98 CK, Total 88 0 - 200 unit/L [facility] Specimen Anatomical Collection Method Collection Time Receive d Time (Source) Location / / Volume Laterality Blood specimen 07/07/2017 5:15 AM 017 5:34 (specimen) EST AM EST Resulting Agency Comment Spec In Lab Daphne Shahid MD CHEMISTRY ORDERABLES Performing Organization Address City/[facility]/ZIP Code Phon e Number [address] POCT Glucose (07/07/2017 5:01 AM EST) athologist Signature POC Glucose 182 65 - 199 [facility] Comment: Supplemental ranges: <140 mg/dL before meals <180 mg/dL all other times of the day Specimen Anatomical Collection Method Collection Time Receive d Time (Source) Location / / Volume Laterality Blood specimen 07/07/2017 5:01 AM 017 5:01 (specimen) EST AM EST Daphne Shahid MD POINT OF CARE TEST ORDERABLE S Performing Organization Address City/[facility]/ZIP [facility] Phon e Number [address] POCT Glucose (07/07/2017 4:08 AM EST) athologist Signature POC Glucose 199 65 - 199 [facility] Comment: Supplemental ranges: <140 mg/dL before meals <180 mg/dL all other times of the day Specimen Anatomical Collection Method Collection Time Receive d Time (Source) Location / / Volume Laterality Blood specimen 07/07/2017 4:08 AM 017 4:08 (specimen) EST AM EST Daphne Shahid MD POINT OF CARE TEST ORDERABLE S Performing Organization Address City/State/ZIP Code Phon e Number [address] POCT Glucose (07/07/2017 3:03 AM EST) athologist Signature POC Glucose 188 65 - 199 [place] mg/dL [facility] Comment: Supplemental ranges: <140 mg/dL before meals <180 mg/dL all other times of the day Specimen Anatomical Collection Method Collection Time Receive d Time (Source) Location / / Volume Laterality Blood specimen 07/07/2017 3:03 AM 017 3:03 (specimen) EST AM EST Daphne Shahid MD POINT OF CARE TEST ORDERABLE S Performing Organization Address City/State/[place] [address] (ABNORMAL) POCT Glucose (07/07/2017 2:08 AM EST) athologist Signature POC Glucose 200 (H) 65 - 199 [place] mg/dL [facility] Comment: Supplemental ranges: <140 mg/dL before meals <180 mg/dL all other times of the day Specimen Anatomical Collection Method Collection Time Receive d Time (Source) Location / / Volume Laterality Blood specimen 07/07/2017 2:08 AM 017 2:08 (specimen) EST AM EST Daphne Shahid MD POINT OF CARE TEST ORDERABLE S Performing Organization Address City/State/ZIP Code Phon e Number [address] (ABNORMAL) POCT Glucose (07/07/2017 1:31 AM EST) athologist Signature POC Glucose 209 (H) 65 - 199 [place] mg/dL [facility] Comment: Supplemental ranges: <140 mg/dL before meals <180 mg/dL all other times of the day Specimen Anatomical Collection Method Collection Time Receive d Time (Source) Location / / Volume Laterality Blood specimen 07/07/2017 1:31 AM 017 1:31 (specimen) EST AM EST Daphne Shahid MD POINT OF CARE TEST ORDERABLE S Performing Organization Address City/State/[place] [address] XR Chest PA or [...] [facility] mg/dL [facility] Comment: Supplemental ranges: <140 mg/dL before meals <180 mg/dL all other times of the day Specimen Anatomical Collection Method Collection Time Receive d Time (Source) Location / / Volume Laterality Blood specimen 07/07/2017 12:07 7 (specimen) AM EST 12:07 AM EST Daphne Shahid MD POINT OF CARE TEST ORDERABLE S Performing Organization Address City/State/[place] [address] (ABNORMAL) APTT (07/07/2017 12:00 AM EST) athologist Signature PTT 103 (H) 25 - 35 sec [facility] Comment: The recommended therapeutic range for fu ll dose, unfractionated heparin at [facility] is 80 ? 114 seconds. The [...] City/[facility]/[place] [address] POCT Glucose (07/06/2017 9:55 PM EST) athologist Signature POC Glucose 109 65 - 199 [facility] Comment: Supplemental ranges: <140 mg/dL before meals <180 mg/dL all other times of the day Specimen Anatomical Collection Method Collection Time Receive d Time (Source) Location / / Volume Laterality Blood specimen 07/06/2017 9:55 PM 017 9:55 (specimen) EST PM EST Daphne Shahid MD POINT OF CARE TEST ORDERABLE S Performing Organization Address City/[facility]/[place] [address] POCT Glucose (07/06/2017 9:04 PM EST) athologist Signature POC Glucose 120 65 - 199 [facility] mg/dL [facility] Comment: Supplemental ranges: <140 mg/dL before meals <180 mg/dL all other times of the day Specimen Anatomical Collection Method Collection Time Receive d Time (Source) Location / / Volume Laterality Blood specimen 07/06/2017 9:04 PM 017 9:04 (specimen) EST PM EST Daphne Shahid MD POINT OF CARE TEST ORDERABLE S Performing Organization Address City/[facility]/[place] [address] POCT Glucose (07/06/2017 7:45 PM EST) athologist Signature POC Glucose 158 65 - 199 [facility] mg/dL [facility] Comment: Supplemental ranges: <140 mg/dL before meals <180 mg/dL all other times of the day Specimen Anatomical Collection Method Collection Time Receive d Time (Source) Location / / Volume Laterality Blood specimen 07/06/2017 7:45 PM 017 7:45 (specimen) EST PM EST Daphne Shahid MD POINT OF CARE TEST ORDERABLE S Performing Organization Address City/[facility]/[place] [address] Potassium (07/06/2017 7:40 PM EST) athologist Signature Potassium 3.9 3.5 - 5.0 [facility] mmol/L [facility] Comment: Please note: ??Patients [...] City/[facility]/[place] [address] (ABNORMAL) Cardiac Enzymes (LEB/CGP) (07/06/2017 7:40 PM EST) athologist Signature Troponin-T 2.27 (H) 0.00 - [place] 0.00 ng/mL [facility] Comment: The 99th percentile [...] additional sample may be indicated. Reference: Third Faxon Definition of Myocardial Infarction. Journal of the [employer] 2012;60:1581-98 CK, Total 93 0 - 200 unit/L [facility] Specimen Anatomical Collection Method Collection Time Receive d Time (Source) Location / / Volume Laterality Blood specimen 07/06/2017 7:40 PM 017 7:52 (specimen) EST PM EST Resulting Agency Comment Spec In Lab Daphne Shahid MD CHEMISTRY ORDERABLES Performing Organization Address City/State/ZIP [place] [address] (ABNORMAL) POCT Glucose (07/06/2017 7:13 PM EST) athologist Signature POC Glucose 200 (H) 65 - 199 [facility] Comment: Supplemental ranges: <140 mg/dL before meals <180 mg/dL all other times of the day Specimen Anatomical Collection Method Collection Time Receive d Time (Source) Location / / Volume Laterality Blood specimen 07/06/2017 7:13 PM 017 7:13 (specimen) EST PM EST Daphne Shahid MD POINT OF CARE TEST ORDERABLE S Performing Organization Address City/[facility]/[place] [address] (ABNORMAL) APTT (07/06/2017 6:15 PM EST) athologist Signature PTT 94 (H) 25 - 35 sec [facility] Comment: The recommended therapeutic range for fu ll dose, unfractionated heparin at [facility] is 80 ? 114 seconds. The [...] City/[facility]/[place] [address] (ABNORMAL) POCT Glucose (07/06/2017 6:03 PM EST) athologist Signature POC Glucose 236 (H) 65 - 199 [facility] Comment: Supplemental ranges: <140 mg/dL before meals <180 mg/dL all other times of the day Specimen Anatomical Collection Method Collection Time Receive d Time (Source) Location / / Volume Laterality Blood specimen 07/06/2017 6:03 PM 017 6:03 (specimen) EST PM EST Daphne Shahid MD POINT OF CARE TEST ORDERABLE S Performing Organization Address City/[facility]/[place] [address] (ABNORMAL) POCT Glucose (07/06/2017 5:01 PM EST) athologist Signature POC Glucose 235 (H) 65 - 199 [facility] mg/dL [facility] Comment: Supplemental ranges: <140 mg/dL before meals <180 mg/dL all other times of the day Specimen Anatomical Collection Method Collection Time Receive d Time (Source) Location / / Volume Laterality Blood specimen 07/06/2017 5:01 PM 017 5:01 (specimen) EST PM EST Daphne Shahid MD POINT OF CARE TEST ORDERABLE S Performing Organization Address City/State/[place] [address] (ABNORMAL) POCT Glucose (07/06/2017 4:06 PM EST) athologist Signature POC Glucose 202 (H) 65 - 199 [place] mg/dL [facility] Comment: Supplemental ranges: <140 mg/dL before meals <180 mg/dL all other times of the day Specimen Anatomical Collection Method Collection Time Receive d Time (Source) Location / / Volume Laterality Blood specimen 07/06/2017 4:06 PM 017 4:06 (specimen) EST PM EST Daphne Shahid MD POINT OF CARE TEST ORDERABLE S Performing Organization Address City/State/[place] [address] POCT Glucose (07/06/2017 2:59 PM EST) athologist Signature POC Glucose 178 65 - 199 [place] mg/dL [facility] Comment: Supplemental ranges: <140 mg/dL before meals <180 mg/dL all other times of the day Specimen Anatomical Collection Method Collection Time Receive d Time (Source) Location / / Volume Laterality Blood specimen 07/06/2017 2:59 PM 017 2:59 (specimen) EST PM EST Daphne Shahid MD POINT OF CARE TEST ORDERABLE S Performing Organization Address City/State/[place] [address] (ABNORMAL) Cardiac Enzymes (LEB/CGP) (07/06/2017 2:10 PM EST) athologist Signature Troponin-T 2.34 (H) 0.00 - [facility] 0.00 ng/mL [facility] Comment: The 99th percentile [...] additional sample may be indicated. Reference: Third Faxon Definition of Myocardial Infarction. Journal of the [employer] 2012;60:1581-98 CK, Total 101 0 - 200 unit/L [facility] Specimen Anatomical Collection Method Collection Time Receive d Time (Source) Location / / Volume Laterality Blood specimen 07/06/2017 2:10 PM 017 2:26 (specimen) EST PM EST Resulting Agency Comment Spec In Lab Daphne Shahid MD CHEMISTRY ORDERABLES Performing Organization Address City/State/ZIP [place] [address] POCT Glucose (07/06/2017 2:08 PM EST) P athologist Signature POC Glucose 192 65 - 199 [facility] mg/dL [facility] Comment: Supplemental ranges: <140 mg/dL before meals <180 mg/dL all other times of the day Specimen Anatomical Collection Method Collection Time Receive d Time (Source) Location / / Volume Laterality Blood specimen 07/06/2017 2:08 PM 017 2:08 (specimen) EST PM EST Daphne Shahid MD POINT OF CARE TEST ORDERABLE S Performing Organization Address City/State/ZIP Code Phon e Number [address] POCT Glucose (07/06/2017 1:04 PM EST) P athologist Signature POC Glucose 162 65 - 199 [facility] Comment: Supplemental ranges: <140 mg/dL before meals <180 mg/dL all other times of the day Specimen Anatomical Collection Method Collection Time Receive d Time (Source) Location / / Volume Laterality Blood specimen 07/06/2017 1:04 PM 017 1:04 (specimen) EST PM EST Daphne Shahid MD POINT OF CARE TEST ORDERABLE S Performing Organization Address City/[facility]/ZIP Code Phon e Number [address] POCT Glucose (07/06/2017 12:05 PM EST) athologist Signature POC Glucose 196 65 - 199 [facility] Comment: Supplemental ranges: <140 mg/dL before meals <180 mg/dL all other times of the day Specimen Anatomical Collection Method Collection Time Receive d Time (Source) Location / / Volume Laterality Blood specimen 07/06/2017 12:05 7 (specimen) PM EST 12:05 PM EST Daphne Shahid MD POINT OF CARE TEST ORDERABLE S Performing Organization Address City/State/[place] [address] EKG 12 Lead (07/06/2017 12:00 PM EST) Component Value Ref Range Test Analysis Performed Pathologis t Method Time At Signature Ventricular rate 91 BPM MUSE SYSTEM Atrial Rate 91 BPM MUSE SYSTEM P-R Interval 140 ms MUSE SYSTEM QRS Duration 94 ms MUSE SYSTEM Q-T Interval 394 ms MUSE SYSTEM QTC Calculated 484 ms MUSE SYSTEM (Bezet) Calculated P Stamps 36 degrees MUSE SYSTEM Calculated R Stamps -19 degrees MUSE SYSTEM Calculated T Stamps 104 degrees MUSE SYSTEM INTERPRETATION Normal sinus rhythm MUSE SYSTEM 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) ST & T wave abnormality, consider lateral ischemia Abnormal ECG When compared with ECG of 05-JUL-2017 20:39, No significant change was found Confirmed by MD Verma Gregory A. ([id number]) on 07/06/2017 5:07:33 PM Specimen Anatomical Collection [...] City/[facility]/[place] [address] Antibody screen (07/06/2017 12:00 PM EST) [facility] Method Time Signature Ab Screen Negative [facility] LABORATORY Expires at 07/09/2017 [facility] 235 on: [facility] Specimen Anatomical Collection Method Collection Time Receive d Time (Source) Location / / Volume Laterality Blood specimen 07/06/2017 12:00 7 (specimen) PM EST 12:24 PM EST Resulting Agency Comment Spec In Lab Daphne Shahid MD BLOOD BANK ORDERABLES Performing Organization Address City/[facility]/[place] [address] ABO/Rh Typing (07/06/2017 12:00 [...] Organization Address City/State/[place] [address] Prothrombin Time (07/06/2017 11:24 [...] City/[facility]/[place] [address] (ABNORMAL) APTT (07/06/2017 11:24 AM EST) athologist Signature PTT 52 (H) 25 - 35 sec [facility] Comment: The recommended therapeutic range for fu ll dose, unfractionated heparin at [facility] is 80 ? 114 seconds. The [...] Organization Address City/State/[place] [address] POCT Glucose (07/06/2017 11:02 AM EST) athologist Signature POC Glucose 187 65 - 199 [facility] mg/dL [facility] Comment: Supplemental ranges: <140 mg/dL before meals <180 mg/dL all other times of the day Specimen Anatomical Collection Method Collection Time Receive d Time (Source) Location / / Volume Laterality Blood specimen 07/06/2017 11:02 7 (specimen) AM EST 11:02 AM EST Daphne Shahid MD POINT OF CARE TEST ORDERABLE S Performing Organization Address City/State/ZIP Code Phon e Number [address] POCT Glucose (07/06/2017 10:18 AM EST) athologist Signature POC Glucose 193 65 - 199 [facility] mg/dL [facility] Comment: Supplemental ranges: <140 mg/dL before meals <180 mg/dL all other times of the day Specimen Anatomical Collection Method Collection Time Receive d Time (Source) Location / / Volume Laterality Blood specimen 07/06/2017 10:18 7 (specimen) AM EST 10:18 AM EST Daphne Shahid MD POINT OF CARE TEST ORDERABLE S Performing Organization Address City/State/ZIP Code Phon e Number [address] POCT Glucose (07/06/2017 9:25 AM EST) athologist Signature POC Glucose 182 65 - 199 [place] mg/dL [facility] Comment: Supplemental ranges: <140 mg/dL before meals <180 mg/dL all other times of the day Specimen Anatomical Collection Method Collection Time Receive d Time (Source) Location / / Volume Laterality Blood specimen 07/06/2017 9:25 AM 017 9:25 (specimen) EST AM EST Daphne Shahid MD POINT OF CARE TEST ORDERABLE S Performing Organization Address City/State/[place] [address] (ABNORMAL) Cardiac Enzymes (LEB/CGP) (07/06/2017 8:10 AM EST) athologist Signature Troponin-T 2.26 (H) 0.00 - [facility] 0.00 ng/mL [facility] Comment: The 99th percentile [...] additional sample may be indicated. Reference: Third Faxon Definition of Myocardial Infarction. Journal of the [employer] 2012;60:1581-98 CK, Total 124 0 - 200 unit/L [facility] Specimen Anatomical Collection Method Collection Time Receive d Time (Source) Location / / Volume Laterality Blood specimen 07/06/2017 8:10 AM 017 8:23 (specimen) EST AM EST Resulting Agency Comment Spec In Lab Daphne Shahid MD CHEMISTRY ORDERABLES Performing Organization Address City/State/Z[place] [address] Magnesium (07/06/2017 8:10 AM EST) athologist Signature Magnesium 0.84 0.69 - 1.07 [facility] mmol/L [facility] Specimen Anatomical Collection Method Collection Time Receive d Time (Source) Location / / Volume Laterality Blood specimen 07/06/2017 8:10 AM 017 8:21 (specimen) EST AM EST Resulting Agency Comment Spec In Lab Daphne Shahid MD CHEMISTRY ORDERABLES Performing Organization Address City/[facility]/ZIP [place] [address] (ABNORMAL) Basic Metabolic Panel (non-fasting) (07/06/2017 8:10 AM EST) P athologist Signature Glucose Lvl 199 65 - 199 [facility] mg/dL [facility] Comment: Diabetes: [...] [facility] Estimated GFR >60 >=60 [facility] Comment: The reported eGFR should be multiplied b y 1.2 for patients. The MDRD is not an appropriate measure o f renal function for patients with body mass extremes or in patients with acute kidney failure. http://[employer]/DHnkdep http://[employer]/DHMCnkf Specimen Anatomical Collection Method Collection Time Receive d Time (Source) Location / / Volume Laterality Blood specimen 07/06/2017 8:10 AM 017 8:21 (specimen) EST AM EST Resulting Agency Comment Spec In Lab Daphne Shahid MD CHEMISTRY ORDERABLES Performing Organization Address City/[facility]/[place] [address] POCT Glucose (07/06/2017 7:34 AM EST) P athologist Signature POC Glucose 198 65 - 199 [facility] Comment: Supplemental ranges: <140 mg/dL before meals <180 mg/dL all other times of the day Specimen Anatomical Collection Method Collection Time Receive d Time (Source) Location / / Volume Laterality Blood specimen 07/06/2017 7:34 AM 017 7:34 (specimen) EST AM EST Daphne Shahid MD POINT OF CARE TEST ORDERABLE S Performing Organization Address City/State/ZIP Code Phon e Number [address] POCT Glucose (07/06/2017 7:03 AM EST) athologist Signature POC Glucose 181 65 - 199 [facility] Comment: Supplemental ranges: <140 mg/dL before meals <180 mg/dL all other times of the day Specimen Anatomical Collection Method Collection Time Receive d Time (Source) Location / / Volume Laterality Blood specimen 07/06/2017 7:03 AM 017 7:03 (specimen) EST AM EST Daphne Shahid MD POINT OF CARE TEST ORDERABLE S Performing Organization Address City/State/[place] [address] XR Chest PA or [...] [facility] mg/dL [facility] Comment: Supplemental ranges: <140 mg/dL before meals <180 mg/dL all other times of the day Specimen Anatomical Collection Method Collection Time Receive d Time (Source) Location / / Volume Laterality Blood specimen 07/06/2017 6:21 AM 017 6:21 (specimen) EST AM EST Daphne Shahid MD POINT OF CARE TEST ORDERABLE S Performing Organization Address City/State/Z[place] [address] POCT Glucose (07/06/2017 5:08 AM EST) athologist Signature POC Glucose 154 65 - 199 [facility] mg/dL [facility] Comment: Supplemental ranges: <140 mg/dL before meals <180 mg/dL all other times of the day Specimen Anatomical Collection Method Collection Time Receive d Time (Source) Location / / Volume Laterality Blood specimen 07/06/2017 5:08 AM 017 5:08 (specimen) EST AM EST Daphne Shahid MD POINT OF CARE TEST ORDERABLE S Performing Organization Address City/State/ZIP Code Phon e Number [address] POCT Glucose (07/06/2017 4:05 AM EST) athologist Signature POC Glucose 142 65 - 199 [facility] Comment: Supplemental ranges: <140 mg/dL before meals <180 mg/dL all other times of the day Specimen Anatomical Collection Method Collection Time Receive d Time (Source) Location / / Volume Laterality Blood specimen 07/06/2017 4:05 AM 017 4:05 (specimen) EST AM EST Daphne Shahid MD POINT OF CARE TEST ORDERABLE S Performing Organization Address City/[facility]/ZIP Code Phon e Number [address] POCT Glucose (07/06/2017 3:00 AM EST) athologist Signature POC Glucose 116 65 - 199 [facility] Comment: Supplemental ranges: <140 mg/dL before meals <180 mg/dL all other times of the day Specimen Anatomical Collection Method Collection Time Receive d Time (Source) Location / / Volume Laterality Blood specimen 07/06/2017 3:00 AM 017 3:00 (specimen) EST AM EST Daphne Shahid MD POINT OF CARE TEST ORDERABLE S Performing Organization Address City/State/ZIP Code Phon e Number [address] Potassium (07/06/2017 2:20 AM EST) athologist Signature Potassium 3.9 3.5 - 5.0 [facility] mmol/L [facility] Comment: Please note: ??Patients [...] Organization Address City/State/[place] [address] Differential, Automated (07/06/2017 2:20 AM EST) athologist Signature Neutrophils % 72.9 % [facility] Neutr Abs (ANC) 5.53 1.70 - [facility] 6.10 [facility] x10(3)[facility] LAB[facility]ATORY Lymphocytes % 16.4 % [facility] Lymphocytes Abs 1.2 0.9 - 3.2 [facility] [facility] [place] x10(3[facility] LABORATORY Monocytes % 9.4 % [facility] Monocyte Abs 0.7 0.3 - 0.9 [facility] [place] x10(3)/[facility] LABORATORY Eosinophils % 0.5 % [facility] Eosinophils Abs 0.0 0.0 - 0.4 [facility] [place] x10(3)[facility] LABORATORY Basophils % 0.4 % [facility] Basophils Abs 0.0 0.0 - 0.1 [facility] [place] x10(3)/[facility] LABORATORY Immature Gran % 0.40 % [facility] Comment: Immature granulocytes(IG's)percentage an d absolute count will include metamyelocytes, myelocytes, and promyelo cytes. Blood smears from CBCs yielding IG's will be scanned manually for concor dance. If this scan disagrees with the automated IG or if promyelocytes are not ed, a manual differential will be performed. Melisa Gran Abs 0.03 0.00 - 0.04 x10(3)/[facility] MAR Y [facility] LABORATORY Specimen Anatomical Collection Method Collection Time Receive d Time (Source) Location / / Volume Laterality Blood specimen 07/06/2017 2:20 AM 017 2:33 (specimen) EST AM EST Resulting Agency Comment Spec In Lab Daphne Shahid MD HEMATOLOGY ORDERABLES Performing Organization Address City/State/[place] [address] (ABNORMAL) Hemogram (07/06/2017 2:20 AM EST) Analysis Performed At Patho logist Time Signature WBC 7.6 4.0 - 9.5 [facility](3[facility] LABORATORY RBC 4.52 (L) 4.58 - [facility] 5.54 [facility] x10(6)/[facility] LABORATORY Hemoglobin 13.4 (L) 13.7 - [facility] gm/dL [facility] LABORATORY Hematocrit 39.7 (L) 40.5 - [facility] 48.5 % [facility] LABORATORY MCV 87.8 82.9 - [facility] 93.1 [facility] LABORATORY MCH 29.6 27.5 - [place] 32.1 pg [facility] LABORATORY MCHC 33.8 32.0 - [facility] 35.7 gm/dL [facility] LABORATORY Platelets 189 145 - 357 [facility] [place] x10(3)/[facility] LABORATORY RDWSD 45.6 (H) 36.0 - [facility] 45.0 [facility] LABORATORY RDWCV 14.3 (H) 11.4 - [facility] 13.8 % [facility] LABORATORY MPV 9.1 7.6 - 12.9 [facility] nRBC % Auto 0.0 % [facility] LABORATORY nRBC Abs Auto 0.000 0.000 - [place] 0.000 [facility] x10(3)/[facility] LABORATORY Specimen Anatomical Collection Method Collection Time Receive d Time (Source) Location / / Volume Laterality Blood specimen 07/06/2017 2:20 AM 017 2:33 (specimen) EST AM EST Resulting Agency Comment Spec In Lab Daphne Shahid MD HEMATOLOGY ORDERABLES Performing Organization Address City/State/ZIP Code Phon e [place] [facility] [place] [address] (ABNORMAL) APTT (07/06/2017 2:20 AM EST) athologist Signature PTT 52 (H) 25 - 35 sec [facility] LABORATORY Comment: The recommended therapeutic range for fu ll dose, unfractionated heparin at [facility] is 80 ? 114 seconds. The [...] Organization Address City/State/[place] [address] POCT Glucose (07/06/2017 2:20 AM EST) athologist Signature POC Glucose 115 65 - 199 [facility] mg/dL [facility] LABORATORY Comment: Supplemental ranges: <140 mg/dL before meals <180 mg/dL all other times of the day Specimen Anatomical Collection Method Collection Time Receive d Time (Source) Location / / Volume Laterality Blood specimen 07/06/2017 2:20 AM 017 2:20 (specimen) EST AM EST Daphne Shahid MD POINT OF CARE TEST ORDERABLE S Performing Organization Address City/State/[place] [address] (ABNORMAL) Cardiac Enzymes (LEB/CGP) (07/06/2017 2:20 AM EST) athologist Signature Troponin-T 2.13 (H) 0.00 - [facility] [place] 0.00 ng/mL [facility] LABORATORY Comment: The 99th percentile [...] additional sample may be indicated. Reference: Third Faxon Definition of Myocardial Infarction. Journal of the [place] [employer] 2012;60:1581-98 CK, Total 129 0 - 200 unit/L [facility] LABORATORY Specimen Anatomical Collection Method Collection Time Receive d Time (Source) Location / / Volume Laterality Blood specimen 07/06/2017 2:20 AM 017 2:33 (specimen) EST AM EST Resulting Agency Comment Spec In Lab Daphne Shahid MD CHEMISTRY ORDERABLES Performing Organization Address City/State/[place] [address] (ABNORMAL) Hemoglobin A1c (07/06/2017 [...] hemoglobinopathies. Additional resources are available on [facility] ADA website. Macario HAMMOND, Ruthann J, Deysi R, et al. ??Tr anslating the A1C assay into estimated average glucose values. ??Diabetes Care 2008:31(8):6591-9930. Specimen Anatomical Collection Method Collection Time Receive d Time (Source) Location / / Volume Laterality Blood specimen 07/06/2017 2:20 AM 017 2:34 (specimen) EST AM EST Resulting Agency Comment Spec In Lab Daphne Shahid MD CHEMISTRY ORDERABLES Performing Organization Address City/State/[place] [address] (ABNORMAL) Lipid Panel (07/06/2017 2:20 AM EST) [facility] Method Time Signature Chol, Total 150 <=239 [place] mg/dL [facility] LABORATORY Triglycerides 129 <=199 [place] mg/dL [facility] LABORATORY HDL 32 (L) >=40 [place] mg/dL [facility] LABORATORY LDL Cholesterol 92 <=190 [place] mg/dL [facility] LABORATORY Chol/HDL Ratio 4.[address] [facility] LABORATORY Lipid See Note [place] Hernandes [facility] LABORATORY Comment: Lipid management should be guided by a p atient? s ASCVD risk, goals and preferences. ACC/AHA Guidelines recommend high intens ity statin if clinical ASCVD or LDL greater than or equal to 190 mg/dL. http://Remind TechnologiesurMediaHound.com/WTQ-FSV-Ayjdgucip Adults aged 40-75 with LDL 70-189 mg/dL should have their 10 year ASCVD risk estimated with the ACC/AHA ASCVD risk es timator http://tools.acc.org/SWNTH-Case-Isdjwhio r/ Statin should be discussed if risk [...] Organization Address City/State/Z[place] [address] POCT Glucose (07/06/2017 1:09 AM EST) P athologist Signature POC Glucose 121 65 - 199 [facility] mg/dL [facility] LABORATORY Comment: Supplemental ranges: <140 mg/dL before meals <180 mg/dL all other times of the day Specimen Anatomical Collection Method Collection Time Receive d Time (Source) Location / / Volume Laterality Blood specimen 07/06/2017 1:09 AM 017 1:09 (specimen) EST AM EST Daphne Shahid MD POINT OF CARE TEST ORDERABLE S Performing Organization Address City/State/ZIP Code [place] [address] POCT Glucose (07/06/2017 12:06 AM EST) athologist Signature POC Glucose 147 65 - 199 [facility]/dL [facility] LABORATORY Comment: Supplemental ranges: <140 mg/dL before meals <180 mg/dL all other times of the day Specimen Anatomical Collection Method Collection Time Receive d Time (Source) Location / / Volume Laterality Blood specimen 07/06/2017 12:06 7 (specimen) AM EST 12:06 AM EST Daphne Shahid MD POINT OF CARE TEST ORDERABLE S Performing Organization Address City/State/[place] [address] (ABNORMAL) POCT Glucose (07/05/2017 10:56 PM EST) athologist Signature POC Glucose 200 (H) 65 - 199 [facility] mg/dL [facility] LABORATORY Comment: Supplemental ranges: <140 mg/dL before meals <180 mg/dL all other times of the day Specimen Anatomical Collection Method Collection Time Receive d Time (Source) Location / / Volume Laterality Blood specimen 07/05/2017 10:56 7 (specimen) PM EST 10:56 PM EST Daphne Shahid MD POINT OF CARE TEST ORDERABLE S Performing Organization Address City/State/[place] [address] (ABNORMAL) POCT Glucose (07/05/2017 10:05 PM EST) athologist Signature POC Glucose 225 (H) 65 - 199 [facility] mg/dL [facility] LABORATORY Comment: Supplemental ranges: <140 mg/dL before meals <180 mg/dL all other times of the day Specimen Anatomical Collection Method Collection Time Receive d Time (Source) Location / / Volume Laterality Blood specimen 07/05/2017 10:05 7 (specimen) PM EST 10:05 PM EST Daphne Shahid MD POINT OF CARE TEST ORDERABLE S Performing Organization Address City/State/[place] [address] (ABNORMAL) POCT Glucose (07/05/2017 9:02 PM EST) P athologist Signature POC Glucose 301 (H) 65 - 199 [place]AN mg/dL [facility] LABORATORY Comment: Supplemental ranges: <140 mg/dL before meals <180 mg/dL all other times of the day Specimen Anatomical Collection Method Collection Time Receive d Time (Source) Location / / Volume Laterality Blood specimen 07/05/2017 9:02 PM 017 9:02 (specimen) EST PM EST Daphne Shahid MD POINT OF CARE TEST ORDERABLE S Performing Organization Address City/State/ZIP Code Phon e Number [facility] [address] XR Chest PA or [...] 474 ms MUSE SYSTEM (Bezet) Calculated P Stamps 50 degrees MUSE SYSTEM Calculated R Stamps -28 degrees MUSE SYSTEM Calculated T Stamps 90 degrees MUSE SYSTEM INTERPRETATION Sinus tachycardia [...] (ABNORMAL) Differential, Automated (07/05/2017 8:20 PM EST) [facility] gist Method Time Signature Neutrophils % 88.4 % [facility] LABORATORY Neutr Abs (ANC) 9.08 (H) 1.70 - [facility] [place] 6.10 [facility] x10(3)/[facility] LABORATORY Lymphocytes % 7.0 % [facility] LABORATORY Lymphocytes Abs 0.7 (L) 0.9 - 3.2 [facility] [place] x10(3)/[facility] LABORATORY Monocytes % 3.7 % [facility] LABORATORY Monocyte Abs 0.4 0.3 - 0.9 [facility] [place] x10(3)/[facility] LABORATORY Eosinophils % 0.1 % [facility] LABORATORY Eosinophils Abs 0.0 0.0 - 0.4 [facility] [place] x10(3)/[facility] LABORATORY Basophils % 0.2 % [facility] LABORATORY Basophils Abs 0.0 0.0 - 0.1 [facility] [place] x10(3)/[facility] LABORATORY Immature Gran % 0.60 % [facility] [...] Organization Address City/State/Z[place] [address] (ABNORMAL) Hemogram (07/05/2017 8:20 PM EST) Analysis Performed At Patho logist Time Signature WBC 10.3 (H) 4.0 - 9.5 [facility] [place] x10(3)/[facility] LABORATORY RBC 4.64 4.58 - [facility] 5.54 [facility] x10(6)/[facility] LABORATORY Hemoglobin 14.1 13.7 - [facility] 16.5 gm/dL [facility] LABORATORY Hematocrit 40.8 40.5 - [place] R[place]AN 48.5 % [facility] LABORATORY MCV 87.9 82.9 - [facility] 93.1 [facility] LABORATORY MCH 30.4 27.5 - [place] R[place] 32.1 pg [facility] LABORATORY MCHC 34.6 32.0 - [facility] 35.7 gm/dL [facility] LABORATORY Platelets 204 145 - 357 [facility] [place] x10(3)/[facility] LABORATORY RDWSD 46.1 (H) 36.0 - [place] 45.0 [facility] LABORATORY RDWCV 14.5 (H) 11.4 - [facility] 13.8 % [facility] LABORATORY MPV 9.7 7.6 - 12.9 [facility] LABORATORY nRBC % Auto 0.0 % [facility] LABORATORY nRBC Abs Auto 0.000 0.000 - [place] [facility] 0.000 [facility] x10(3)/[facility] LABORATORY Specimen Anatomical Collection Method Collection Time Receive d Time (Source) Location / / Volume Laterality Blood specimen 07/05/2017 8:20 PM 017 8:27 (specimen) EST PM EST Resulting Agency Comment Spec In Lab Daphne Shahid MD HEMATOLOGY ORDERABLES Performing Organization Address City/[facility]/ZIP Code Phon e Number [address] APTT (07/05/2017 8:20 PM EST) P athologist Signature PTT 32 25 - 35 sec [facility] LABORATORY Comment: The recommended therapeutic range for fu ll dose, unfractionated heparin at [facility] is 80 ? 114 seconds. The [...] ORDERABLES Performing Organization Address City/[facility]/ZIP [facility] [place] [address] (ABNORMAL) Cardiac Enzymes (LEB/CGP) (07/05/2017 8:20 PM EST) P athologist Signature Troponin-T 2.11 (H) 0.00 - [facility] 0.00 ng/mL [facility] LABORATORY Comment: The 99th percentile [...] additional sample may be indicated. Reference: Third Faxon Definition of Myocardial Infarction. Journal of the [employer] College of Cardiology 2012;60:1581-98 CK, Total 149 0 - 200 unit/L [facility] LABORATORY Specimen Anatomical Collection Method Collection Time Receive d Time (Source) Location / / Volume Laterality Blood specimen 07/05/2017 8:20 PM 017 8:27 (specimen) EST PM EST Resulting Agency Comment Spec In Lab Daphne Shahid MD CHEMISTRY ORDERABLES Performing Organization Address City/[facility]/[place] [address] (ABNORMAL) Magnesium (07/05/2017 8:20 PM EST) P athologist Signature Magnesium 0.68 (L) 0.69 - 1.07 [facility] mmol/L [facility] LABORATORY Specimen Anatomical Collection Method Collection Time Receive d Time (Source) Location / / Volume Laterality Blood specimen 07/05/2017 8:20 PM 017 8:27 (specimen) EST PM EST Resulting Agency Comment Spec In Lab Daphne Shahid MD CHEMISTRY ORDERABLES Performing Organization Address City/State/[place] [address] (ABNORMAL) Basic Metabolic Panel (non-fasting) (07/05/2017 8:20 PM EST) athologist Signature Glucose Lvl 321 (H) 65 - 199 [facility] mg/dL [facility] LABORATORY Comment: Diabetes: [...] [facility] LABORATORY Estimated GFR >60 >=60 [facility] LABORATORY Comment: The reported eGFR should be multiplied b y 1.2 for patients. The MDRD is not an appropriate measure o f renal function for patients with body mass extremes or in patients with acute kidney failure. http://CrowdBouncer.BrandWatch Technologies/DHnkdep http://AskNshare/DHMCnkf Specimen Anatomical Collection Method Collection Time Receive d Time (Source) Location / / Volume Laterality Blood specimen 07/05/2017 8:20 PM 017 8:27 (specimen) EST PM EST Resulting Agency Comment Spec In Lab Daphne Shahid MD CHEMISTRY ORDERABLES Performing Organization Address City/State/Z[place] [address] (ABNORMAL) POCT Glucose (07/05/2017 7:32 PM EST) athologist Signature POC Glucose 296 (H) 65 - 199 [facility] mg/dL [facility] LABORATORY Comment: Supplemental ranges: <140 mg/dL before meals <180 mg/dL all other times of the day Specimen Anatomical Collection Method Collection Time Receive d Time (Source) Location / / Volume Laterality Blood specimen 07/05/2017 7:32 PM 017 7:32 (specimen) EST PM EST Daphne Shahid MD POINT OF CARE TEST ORDERABLE S Performing Organization Address City/State/ZIP Code [place] [address] CARDIAC CATHETERIZATION (07/05/2017 6:47 PM EST) Anatomical Region Laterality Modality Other Specimen (Source) Anatomical Location Collection Method / Collectio n Time Received Time / Laterality Volume Narrative 07/05/2017 7:27 PM EST ?[facility] ? Cardiac Cathete rization/Intervention Report ? Patient Name: Natalya, Gregory ? Procedure Date: 07/05/2017 ? A #: [id number] ? Primary Physician: Clarisa, Jet T ? Case #: [id number] ? File Name: [id number] ? Catheterization Order Number: [id number] ? [facility] [employer] [facility] ? Final Report [place], [place] ? Patient Name: ? Gregory Natalya ?ID#: ?[id number] ? : ?1945 ? Procedure Date: ? [...] presented with: non -STEMI (w/i 7 days). [place] ?Cardiovascular Society angina c lass was IV. 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 ? Jet Mckenna, M.D. ? Electronically Signed by: Jet Sampson DeVrizack s, M.D. ? Report Finalized: 07/05/2017 ??19:23 ? Report Last Ammended: 10/26/2017 ??10:29 ? Procedure Note Jet Mckenna MD - 10/26/2017Formatt ing of this note might be different from the original. [facility] Cardiac Catheterization/Intervention Re port Patient Name: Gregory Hoang Procedure Date: 07/05/2017 A #: [id number] Primary Physician: Jet Mckenna Case #: [id number] File Name: [id number] Catheterization Order Number: [id number] [facility] [employer] [facility] Final Report [place], [place] Patient Name: Gregory Hoang ID#: [id number] : 1945 Procedure Date: July 05, [...] presented with: non-STEMI ( w/i 7 days). [place] Cardiovascular Society angina class was IV. 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 Jet Mckenna M.D. Electronically Signed [...] E ? (Age): 1945(72y) Med Rec#: ? [id number] ?Sex: ?M ? Site Loc: ? [facility] ?Ht / Wt: ??173(cm)/86(kg) Pt. Loc: ?[facility] ? BSA: ?2 Study Date: ?? 07/05/2017 ?Pt. Type: Inpatient Tape: ? Referring: Daphne Shahid ([id number]) Referring: MANDA ALCANTAR Reading: Blade Preston ([id number]) Marketing Production Manager: Dayami Paula BA, [facility] [...] E-wave Vmax ?0.8 ?m/sec ? MV deceleration [id number] ?msec ? MV A-wave Vmax ?0.8 ?m/sec [...] ? Mid-Inferior ?Akinetic ? Mid-Inferoseptal ?Hypokinetic ? [place]-Septal ? Akinetic ? [place]-Anterior ? Hypokinetic ? [place]-Lateral ?Hypokinetic ? [place]-Inferior ? Akinetic ? [place]-Tip ?Akinetic ? This report has been electronically sign ed by: _ Blade Preston MD ? 07/06/2017 08 :53:15 Images reviewed and interpretation verif ied [facility] Cardiac Ultrasound Laboratory Procedure Note Blade Preston MD - 07/06/2017Formatt ing of this note might be different from the original. Procedure: Transthoracic Echocardiogram Patient: NATALYA MCBRIDE(Age): [birth year]72y) Med Rec#: [id number] Sex: M Site Loc: [facility] Ht / Wt: 173(cm)/86(kg) Pt. Loc: U BSA: 2 Study Date: 07/05/2017 Pt. Type: Inpatie nt Tape: Referring: Daphne Shahid ([id number]) Referring: MANDA ALCANTAR Reading: Blade Preston ([id number]) Marketing Production Manager: Dayami Paula BA, [facility] [...] MV E-wave Vmax 0.8 m/sec MV deceleration [id number] msec MV A-wave Vmax 0.8 m/sec MV [...] Hypokinetic Mid-Posterolateral Hypokinetic Mid-Inferior Akinetic Mid-Inferoseptal Hypokinetic [place]-Septal Akinetic [place]-Anterior Hypokinetic [place]-Lateral Hypokinetic [place]-Inferior Akinetic [place]-Tip Akinetic This report has been electronically sign ed by: _ Blade Preston MD 07/06/2017 08:53:15 Images reviewed and interpretation verif ied [facility] Cardiac Ultrasound Laboratory Daphne Shahid MD ECHO ORDERABLES Differential, Automated (07/05/2017 4:55 PM EST) athologist Signature Neutrophils % 77.0 % [facility] LABORATORY Neutr Abs (ANC) 5.26 1.70 - [facility] 6.10 [facility] x10(3)[facility] Lymphocytes % 13.3 % [facility] Lymphocytes Abs 0.9 0.9 - 3.2 [facility] x10(3)/[facility] LABORATORY Monocytes % 8.2 % [facility] Monocyte Abs 0.6 0.3 - 0.9 [facility] x10(3)/[facility] LABORATORY Eosinophils % 0.7 % [facility] Eosinophils Abs 0.0 0.0 - 0.4 [facility] x10(3)[facility] LABORATORY Basophils % 0.4 % [facility] Basophils Abs 0.0 0.0 - 0.1 [facility] x10(3)/[facility] LABORATORY Immature Gran % 0.40 % [facility] Comment: Immature granulocytes(IG's)percentage an d absolute count will include metamyelocytes, myelocytes, and promyelo cytes. Blood smears from CBCs yielding IG's will be scanned manually for concor dance. If this scan disagrees with the automated IG or if promyelocytes are not ed, a manual differential will be performed. Melisa Gran Abs 0.03 0.00 - 0.04 x10(3)/[facility] MAR Y [facility] LABORATORY Specimen Anatomical Collection Method Collection Time Receive d Time (Source) Location / / Volume Laterality Blood specimen 07/05/2017 4:55 PM 017 5:24 (specimen) EST PM EST Resulting Agency Comment Spec In Lab Daphne Shahid MD HEMATOLOGY ORDERABLES Performing Organization Address City/State/Z[place] [address] (ABNORMAL) Hemogram (07/05/2017 4:55 PM EST) Analysis Performed At Patho logist Time Signature WBC 6.8 4.0 - 9.5 [facility] x10(3)/[facility] LABORATORY RBC 4.67 4.58 - [place] RYAN 5.54 [facility] x10(6)/[facility] LABORATORY Hemoglobin 14.0 13.7 - [facility] 16.[facility] gm/dL [facility] LABORATORY Hematocrit 41.0 40.5 - [facility] 48.5 % [facility] LABORATORY MCV 87.8 82.9 - [facility] 93.1 [facility] LABORATORY MCH 30.0 27.5 - [place] RYAN 32.1 pg [facility] LABORATORY MCHC 34.1 32.0 - [place] RYAN 35.7 gm/dL [facility] LABORATORY Platelets 197 145 - 357 [facility](3[facility] LABORATORY RDWSD 46.4 (H) 36.0 - [facility] 45.0 [facility] LABORATORY RDWCV 14.5 (H) 11.4 - [facility] 13.8 % [facility] LABORATORY MPV 9.7 7.6 - 12.9 [facility] nRBC % Auto 0.0 % [facility] LABORATORY nRBC Abs Auto 0.000 0.000 - [facility] 0.000 [facility] x10(3)/[facility] LABORATORY Specimen Anatomical Collection Method Collection Time Receive d Time (Source) Location / / Volume Laterality Blood specimen 07/05/2017 4:55 PM 017 5:24 (specimen) EST PM EST Resulting Agency Comment Spec In Lab Daphne Shahid MD HEMATOLOGY ORDERABLES Performing Organization Address City/State/Z[place] [address] (ABNORMAL) Cardiac Enzymes (LEB/CGP) (07/05/2017 4:55 PM EST) P athologist Signature Troponin-T 1.69 (H) 0.00 - [place] 0.00 ng/mL [facility] LABORATORY Comment: The 99th percentile [...] additional sample may be indicated. Reference: Third Faxon Definition of Myocardial Infarction. Journal of the [employer] College [employer] 2012;60:1581-98 CK, Total 191 0 - 200 unit/L [facility] Specimen Anatomical Collection Method Collection Time Receive d Time (Source) Location / / Volume Laterality Blood specimen 07/05/2017 4:55 PM 017 5:56 (specimen) EST PM EST Resulting Agency Comment Spec In Lab Daphne Shahid MD CHEMISTRY ORDERABLES Performing Organization Address City/State/ZIP Code Phon e Number [place] [phone] (ABNORMAL) pro-Brain Natriuretic Peptide (07/05/2017 4:55 PM EST) P athologist Signature ProBNP 1,598 (H) <=125 [facility] pg/mL [facility] Specimen Anatomical Collection Method Collection Time Receive d Time (Source) Location / / Volume Laterality Blood specimen 07/05/2017 4:55 PM 017 5:24 (specimen) EST PM EST Resulting Agency Comment Spec In Lab Daphne Shahid MD CHEMISTRY ORDERABLES Performing Organization Address City/State/ZIP Code Phon e Number [address] Magnesium (07/05/2017 4:55 PM EST) P athologist Signature Magnesium 0.78 0.69 - 1.07 [facility] mmol/L [facility] Specimen Anatomical Collection Method Collection Time Receive d Time (Source) Location / / Volume Laterality Blood specimen 07/05/2017 4:55 PM 017 5:24 (specimen) EST PM EST Resulting Agency Comment Spec In Lab Dapnhe Shahid MD CHEMISTRY ORDERABLES Performing Organization Address City/[facility]/[place] [address] (ABNORMAL) Basic Metabolic Panel (non-fasting) (07/05/2017 4:55 PM EST) P athologist Signature Glucose Lvl 230 (H) 65 - 199 [facility] mg/dL [facility] Comment: Diabetes: [...] [facility] Estimated GFR >60 >=60 [facility] Comment: The reported eGFR should be multiplied b y 1.2 for patients. The MDRD is not an appropriate measure o f renal function for patients with body mass extremes or in patients with acute kidney failure. http://CrowdBouncer.[employer]/DHnkdep http://AskNshare/MCnkf Specimen Anatomical Collection Method Collection Time Receive d Time (Source) Location / / Volume Laterality Blood specimen 07/05/2017 4:55 PM 017 5:24 (specimen) EST PM EST Resulting Agency Comment Spec In Lab Daphne Shahid MD CHEMISTRY ORDERABLES Performing Organization Address City/[facility] Code Phon e Number [address] (ABNORMAL) APTT (07/05/2017 4:55 PM EST) P athologist Signature PTT 41 (H) 25 - 35 sec [facility] Comment: The recommended therapeutic range for fu ll dose, unfractionated heparin at [facility] is 80 ? 114 seconds. The [...] HEMATOLOGY ORDERABLES Performing Organization Address City/[facility] [place] [address] (ABNORMAL) POCT Glucose (07/05/2017 4:53 PM EST) P athologist Signature POC Glucose 208 (H) 65 - 199 [facility] mg/dL [facility] Comment: Supplemental ranges: <140 mg/dL before meals <180 mg/dL all other times of the day Specimen Anatomical Collection Method Collection Time Receive d Time (Source) Location / / Volume Laterality Blood specimen 07/05/2017 4:53 PM 017 4:53 (specimen) EST PM EST Daphne Shahid MD POINT OF CARE TEST ORDERABLE S Performing Organization Address City/State/ZIP Code Phon e Number [place] [phone] EKG 12 Lead (07/05/2017 4:32 PM EST) Component Value Ref Range Test Analysis Performed Pathologis t Method Time At Signature Ventricular rate 97 BPM MUSE SYSTEM Atrial Rate 97 BPM MUSE SYSTEM P-R Interval 148 ms MUSE SYSTEM QRS Duration 96 ms MUSE SYSTEM Q-T Interval 364 ms MUSE SYSTEM QTC Calculated 462 ms MUSE SYSTEM (Bezet) Calculated P Stamps 48 degrees MUSE SYSTEM Calculated R Stamps -33 degrees MUSE SYSTEM Calculated T Stamps 98 degrees MUSE SYSTEM INTERPRETATION Normal sinus [...] Coronary atherosclerosis of unspecified type of vessel, solomon or graft Cardiomyopathy, ischemic Other specified forms [...] in dextrose 5% 250 mL EST infusion (DERMATOLOGY PHYSICIAN) CONTINUOUS PRN, Starting on Wed07/05/17 at 1837, [...] Provider: Denice Jacobson, RN)0213 (Stopped - Provider: Deniec Jacobson, VAMSI)0932 (New Bag - Provider: Myrna [...] Provider: More Luther RN)1259 (Given - Provider: oMre Luther, VAMSI)1757 (Given - Provider: Yanet Valdovinos, [...]
Routine documented in this encounter Care Teams Art Director Relationship Specialty Start Date End Date Lovely Vicente MD PCP - General 04/16/[address] [place] [address] [address] [place] [address] documented as of this encounter
--- OUTSIDE RECORDS SUMMARY | 2022-05-11 08:51 | XMS_ITS | Encounter Summary ---
:1945 Author Organization [place] [address] Care Team Providers Name Role Phone Lovely Vicente MD Primary Care Provider Reason for Visit Reason Comments Nevus excision dysplastic nevus mi d upper abdomen Encounter Details Date Type Department Care Team Description 12/03/2016 Procedure visit Dermatology at [facility] Dysplastic nevus of Road MD Adrián trunk [address] [facility] [address] [facility] [phone] [address] [place] [address] Social History Tobacco Use Types Packs/Day Years [...] Halima Cordero MD during the day at [phone] Nurse: Mira [phone] Amy After 5 PM and on weekends, please call the hospital number , and ask for the Wad Lubricator pressurised container filler. documented in this encounter Progress Notes Halima Cordero MD - 12/10/2016 5:41 PM EDT Gwendolyn, Excision shows scar, there is no residual of the severely dysplastic nevus. Please notify patient and check on wound healing. Thank you, DTB Halima Cordero MD - 12/03/2016 3:00 PM EDT Images from the original note were not included. Dermatology Procedure note: Attending: Halima Cordero MD Network Design Architect: Mira James LPN Referring MD: Rigoberto Garcia [...] to call the clinic or the on-call glaze carrier over the weekend. ??? Name of Procedure? [...] Dolan MD [facility] [place], [place] [address] (Wo rk) 05/28/2022 Laboratory Appointment Lab 05/28/2022 Office Visit Cardiology Zulma Dolan MD [facility] [place] [address] Liz Poole PA [facility] [place] [address] 06/10/2022 Office Visit Dermatology Laura Scherer MD [facility] [address] [place], [place] [address] (Wo rk) documented as of [...] Component Value Ref Test Analysis Performed At [facility] Method Time Signature Surgical [id number] ?Location: [facility] The signing pathologist has (i) [...] Clinical Diagnosis: Dysplastic nevus, see previous pathology [id number] SPECIMEN PROCESSING A - Labeled/Fixative: Mid-upper abdomen, [...] Organization Address City/State/[place] [address] Specimen to Pathology (NON-OR) [...] Organization Address City/State/[place] [address] documented in this encounter Visit Diagnoses Diagnosis Dysplastic nevus of trunk Benign neoplasm of skin of trunk, except scrotum documented in this encounter Care Teams Maintenance Of Way Clerk Relationship Specialty Start Date End Date Lovely Vicente MD PCP - General 04/16/15 [address] [facility] [address] [address] [place] [address] documented as of this encounter
--- OUTSIDE RECORDS SUMMARY | 2022-05-11 08:51 | XMS_ITS | Encounter Summary ---
:1945 Author Organization [facility] [place] [address] Care Team Providers Name Role Phone Lovely Vicente MD Primary Care Provider Reason for Visit Reason Onset Date Comments Pre Procedure Call 12/02/2016 Encounter Details Date Type Department Care Team Description 12/02/2016 Telephone Dermatology at [facility] Mira James LPN Pre Procedure Call [address] [place] [address] Social History Tobacco Use Types Packs/Day [...] Zulma Dolan MD [facility] [place], [place] [address] (Wo lissa) 05/28/2022 Laboratory Appointment Lab 05/28/2022 Office Visit Cardiology Zulma Dolan MD [facility] [place] [address] Liz Poole PA [facility] [place] [address] 06/10/2022 Office Visit Dermatology Laura Scherer MD [facility] [address] [place], [place] [address] (Wo rk) documented as of this encounter Visit Diagnoses Not on filedocumented in this encounter Care Teams Housekeeping Coordinator Relationship Specialty Start Date End Date Lovely Vicente MD PCP - General 04/16/[address] [place] [address] documented as of this encounter
--- OUTSIDE RECORDS SUMMARY | 2022-05-11 08:51 | XMS_ITS | Encounter Summary ---
:1945 Author Organization [facility] [place] [address] Care Team Providers Name Role Phone Lovely Vicente MD Primary Care Provider Encounter Details Date Type Department Care Team Description 07/05/2017 Telephone Cardiology Kim Galindo MD [facility] [place] [address] CARDIOLOGY DEPT [phone] [place], [place] [address] (Wo rk) Social History [...] Ivania CROWELL) Patient Location: [facility] Presenting Symptoms per OSH: 72 year old [...] infarct and elevated troponin, transport patient to [facility] for cath this afternoon and arrhythmia monitoring. Kim Galindo MD Political Analyst documented in this encounter Plan of Treatment Upcoming Encounters Date Type Specialty Care Team Description 05/28/2022 Appointment Cardiology Zulma Dolan MD [facility] [address] [place], [place] [address] (Wo rk) 05/28/2022 Laboratory Appointment Lab 05/28/2022 Office Visit Cardiology Zulma Dolan MD [facility] [place] [address] Liz Poole PA [facility] [place] [address] 06/10/2022 Office Visit Dermatology Laura Scherer MD [facility] [address] [place], [place] [address] (Wo rk) documented as of this encounter Visit Diagnoses Not on filedocumented in this encounter Care Teams Storm Window Installer Relationship Specialty Start Date End Date Lovely Vicente MD PCP - General 04/16/[address] [place] [address] documented as of this encounter
--- OUTSIDE RECORDS SUMMARY | 2022-05-11 08:52 | XMS_ITS | Encounter Summary ---
:1945 Author Organization [facility] [address] Care Team Providers Name Role Phone MiyaAngela STACIE Primary Care Provider Encounter Details Date Type Department Care Team Description 04/26/2014 Office Visit Endocrinology at [facility] Albertina [place], Papillary thyroid [facility] [place] [address] CENTER [phone] ENDOCRINOLOGY DEPT [place] [address] Social History Tobacco Use Types Packs/Day Years [...] on [place]. Rosalind [place] Endocrine Staff Physician [facility] Rosalind [place] MD - 04/26/2014 8:39 AM [...] one yr Rosalind [place] Endocrine Staff Physician [facility] documented in this encounter Plan of Treatment Upcoming Encounters Date Type Specialty Care Team Description 05/28/2022 Appointment Cardiology Zulma Dolan MD [facility] [address] [place], [place] [address] (Wo rk) 05/28/2022 Laboratory Appointment Lab 05/28/2022 Office Visit Cardiology Zulma Dolan MD [facility] [place] [address] Liz Poole PA [facility] [place] [address] 06/10/2022 Office Visit Dermatology Laura Scherer MD [facility] DR [address] GR[address]DERMAT [place], [place] [address] (Wo rk) documented as [...] athologist Signature Thyroglobulin <0.4 <=54.9 CERNER ng/mL [facility] Comment: Interpret with caution. Tg levels [...] BR et al. J Clin Endo Metab 1999;84:0871-4620). Assay performed using the DPC Immulite T [...] Address City/State/ZIP Code Phon e Number [address] CERNER MILLENNIUM (ABNORMAL) TSH (04/26/2014 9:07 AM EDT) P athologist Signature TSH 4.46 (H) 0.27 - 4.20 CERNER mcIU/mL MILLENNIUM Specimen Anatomical Collection Method Collection Time Receive d Time (Source) Location / / Volume Laterality Blood specimen 04/26/2014 9:07 AM 014 9:12 (specimen) EDT AM EDT Resulting Agency Comment Spec In Lab Rosalind [place] MD CHEMISTRY ORDERABLES Performing Organization Address City/[facility]/ZIP Code Phon e Number [address] CERNER MILLENNIUM documented in this encounter Visit Diagnoses Diagnosis Papillary thyroid carcinoma Malignant neoplasm of thyroid gland documented in this encounter Care Teams Export Clerk Relationship Specialty Start Date End Date Angela Holliday APRN PCP - General 01/25/13 04/15/[address] [place] [address] documented as of this encounter
--- OUTSIDE RECORDS SUMMARY | 2022-05-11 08:52 | XMS_ITS | Encounter Summary ---
:1945 Author Organization [facility] [place] [address] Care Team Providers Name Role Phone Angela Holliday APRN Primary Care Provider Encounter Details Date Type Department Care Team Description 03/30/2013 Telephone General Surgery at [facility] Cliff Nevarez, [place] [address] Social History Tobacco Use Types Packs/Day [...] Zulma Dolan MD [facility] [address] [place], [place] [address] (Wo rk) 05/28/2022 Laboratory Appointment Lab 05/28/2022 Office Visit Cardiology Zulma Dolan MD [facility] [place] [address] Liz Poole PA [facility] [place] [address] 06/10/2022 Office Visit Dermatology Laura Scherer MD [facility] [address] [place], [place] [address] (Wo rk) documented as of this encounter Visit Diagnoses Not on filedocumented in this encounter Care Teams Hatchery Supervisor Relationship Specialty Start Date End Date Angela Holliday APRN PCP - General 01/25/13 04/15/[address] [place] [address] documented as of this encounter
--- OUTSIDE RECORDS SUMMARY | 2022-05-11 08:52 | XMS_ITS | Encounter Summary ---
:1945 Author Organization [facility] [address] Care Team Providers Name Role Phone MiyaLokeshAngela STACIE Primary Care Provider Reason for Visit Reason Onset Date Comments Post-op Problem 04/05/2013 voiding trial Encounter Details Date Type Department Care Team Description 04/05/2013 Telephone Urology at [facility] Blade Smith, Post-op Problem [facility] (voiding trial) [place] [address] UROLOGY DEPT [place] [id number] (Wo rk) Social History Tobacco Use Types [...] Zulma Dolan MD [facility] [place], [place] [address] (Wo rk) 05/28/2022 Laboratory Appointment Lab 05/28/2022 Office Visit Cardiology Zulma Dolan MD [facility] [place] [address] Liz Poole PA [facility] [place] [address] 06/10/2022 Office Visit Dermatology Laura Scherer MD [facility] [address] [place], [place] [address] (Wo rk) documented as of this encounter Visit Diagnoses Not on filedocumented in this encounter Care Teams Roll Forming Machine Set Up Operator Relationship Specialty Start Date End Date Angela Holliday APRN PCP - General 01/25/13 04/15/[address] [place] [address] documented as of this encounter
--- OUTSIDE RECORDS SUMMARY | 2022-05-11 08:52 | XMS_ITS | Encounter Summary ---
:1945 Author Organization [facility] [place] [address] Care Team Providers Name Role Phone Lovely Vicente MD Primary Care Provider Reason for Visit Reason Onset Date Comments Referral 10/30/2015 Urgent referral for mac on SIM[facility]N [place]AVIS Encounter Details Date Type Department Care Team Description 10/30/[address] [facility] C Jayson Ruiz Referral (Urgent [facility] MD Grabiel referral for mac on [facility] DR SIM[address]N [place]AVIS) [place] [address] OPHTHALMOLOGY DEPT. [phone] [place], [place] [address] (Wo rk) Social History Tobacco [...] Cardiology Zulma Dolan MD [facility] [address] [place], [place] [address] (Wo rk) 05/28/2022 Laboratory Appointment Lab 05/28/2022 Office Visit Cardiology Zulma Dolan MD [facility] [place] [address] Liz Poole PA [facility] [place] [address] 06/10/2022 Office Visit Dermatology Laura Scherer MD [facility] [address] GR[address]DERMAT [place], [place] [address] (Wo rk) documented as of this encounter Visit Diagnoses Not on filedocumented in this encounter Care Teams Nuclear Plant Operator Relationship Specialty Start Date End Date Lovely Vicente MD PCP - General 04/16/[address] [place], [place] [address] documented as of this encounter
--- OUTSIDE RECORDS SUMMARY | 2022-05-11 08:52 | XMS_ITS | Encounter Summary ---
:1945 Author Organization [place] [address] Care Team Providers Name Role Phone Angela Sotelo APRN Primary Care Provider Encounter Details Date Type Department Care Team Description 01/16/2014 Surgery Gastroenterology at [facility] Nohemi Jaimes, COLONOSCOPY, [facility] Jorge mcnamara MD [place], [place] [address] [facility] BY SNARE ([facility] [phone] DR Cintron) GASTROENTEROLOGY DEPT. [place], [place] [address] Social History Tobacco Use Types [...] you need to be checked. Wednesday[facility]Wednesday Clinic [phone] 8a-5p Same Day Endo [phone]-8p Otherwise contact [phone] and ask to speak to the head banquet waitress hotel receptionist Follow up care is a shelton part [...] Jaimes MD - 01/16/2014 9:49 AM EDT [facility] Operative Note Patient Name: Gregory Fatima : [id number] MR#: [id number] Case Date: 01/16/2014 Surgeon: Surgeon(s) and Role: * Nohemi Jaimes MD - Primary Preoperative diagnosis: 6 yr surv. Full procedure note is documented under the Procedure section of eDH. documented in this encounter Plan of Treatment Upcoming Encounters Date Type Specialty Care Team Description 05/28/2022 Appointment Cardiology Zulma Dolan MD [facility] [address] [place] [address] (Wo rk) 05/28/2022 Laboratory Appointment Lab 05/28/2022 Office Visit Cardiology Zulma Dolan MD [facility] [place] [address] Liz Poole PA [facility] [place] [address] 06/10/2022 Office Visit Dermatology Laura Scherer MD [facility] [address] [place] [address] (Wo rk) documented as of this encounter [...] Surgical Pathology Report (01/16/2014 9:53 AM EDT) [facility] Method Time Signature Surgical CERNER Pathology ? [facility] Report ? Provider: ?? SHREE, NOHEMI Gonzalez ?Pt. Name: ?? MALICKA RT, GREGORY E ? Acc #: ?[id number] ?Pt. MRN: ?[id number] ? Col Date: ?? 4 ? /Sex: [...] Organization Address City/State/ZIP Code Phon e Number [place] [phone]ITAL LAB[address] RAKESH WALKER Specimen to [...] City/[facility]/[place] [address] CERNER MILLENNIUM Specimen to [...] ORDERABLE S Performing Organization Address [facility] [place] [address] CERNER MILLENNIUM COLONOSCOPY (01/16/2014 7:25 AM EDT) [facility] gist Method Time Signature COLONOSCOPY [facility] Endoscopy Patient Name: Gregory Fatima ? Procedure Date: 01/16/2014 7:25 AM ? N: [id number] ? Date of : 1945 ? Age: 68 ? Order #: [id number] ? Procedure: ? Colonoscopy Indications: ? High [...] Laterality 01/16/2014 7:25 AM EDT Angela Sotelo BRIQUETTING MACHINE OPERATOR GENERAL SURGICAL ORDERABLES Performing Organization [...] Provider: Blanca Samuel RN)0902 (Given - Provider: Blanac Samuel, RN)0911 (Given - Provider: Blanca Samuel, VAMSI)0914 (Given - Provider: Blanca Samuel, VAMSI) ONCE PRN, Starting on Wed01/16/14 at 085 6, Until Wed01/16/14 at 1036, Sleep, Intra-Operative (Intra-Procedure), Routine documented in this encounter Care Teams Ground Nuclear Weapons Assembly Officer Relationship Specialty Start Date End Date Angela Sotelo APRN PCP - General 01/25/13 04/15/15 [address] [place] [address] documented as of this encounter
--- OUTSIDE RECORDS SUMMARY | 2022-05-11 08:52 | XMS_ITS | Encounter Summary ---
:1945 Author Organization [facility] [place] [address] Care Team Providers Name Role Phone Lovely Vicente MD Primary Care Provider Encounter Details Date Type Department Care Team Description 07/10/2016 Telephone Dermatology at [facility] Rigoberto White III, [address] [place] [address] [facility] [phone] [facility] MAR[facility]-[place], [place] [address] (Wo rk) Social History Tobacco [...] Zulma Dolan MD [facility] [address] [place], [place] [address] (Wo rk) 05/28/2022 Laboratory Appointment Lab 05/28/2022 Office Visit Cardiology Zulma Dolan MD [facility] [place] [address] Liz Poole PA [facility] [place] [address] 06/10/2022 Office Visit Dermatology Laura Scherer MD [facility] DR TE[address] [place], [place] [address] (Wo rk) documented as of this encounter Visit Diagnoses Not on filedocumented in this encounter Care Teams Senior Center Manager Relationship Specialty Start Date End Date Lovely Vicente MD PCP - General 04/16/15 [facility] [address] [place] [address] documented as of this encounter
--- OUTSIDE RECORDS SUMMARY | 2022-05-11 08:52 | XMS_ITS | Encounter Summary ---
:1945 Author Organization [facility] [address] Care Team Providers Name Role Phone MiyaAngela STACIE Primary Care Provider Reason for Visit Reason Onset Date Comments Advice Only 03/31/2013 Encounter Details Date Type Department Care Team Description 03/31/2013 Telephone Urology at [facility] Daniele Trejo III, MD Advice Only One [facility] [place] [id number] [place] [id number] [phone] (Wo rk) Social History Tobacco Use Types [...] Cardiology Zulma Dolan MD [facility] [place], [place] [address] (Wo rk) 05/28/2022 Laboratory Appointment Lab 05/28/2022 Office Visit Cardiology Zulma Dolan MD [facility] [place] [address] Liz Poole PA [facility] [place] [address] 06/10/2022 Office Visit Dermatology Laura Scherer MD [facility] [address]DER[address] [place], [place] [address] (Wo rk) documented as of this encounter Visit Diagnoses Not on filedocumented in this encounter Care Teams Production Line Technician Relationship Specialty Start Date End Date Angela Holliday APRN PCP - General 01/25/13 04/15/[address] [place] [address] documented as of this encounter
--- OUTSIDE RECORDS SUMMARY | 2022-05-11 08:52 | XMS_ITS | Encounter Summary ---
:1945 Author Organization [facility] [address] Care Team Providers Name Role Phone Lovely Vicente MD Primary Care Provider Reason for Visit Reason Comments Skin Check Encounter Details Date Type Department Care Team Description 04/16/2015 Follow-Up Dermatology at [facility] Forman x of melanoma of skin; Abdelrahman HOOPER MD Multiple benign nevi [address] [place] [address] [facility] [place] [place] [address] (Wo rk) Social History Tobacco [...] Diagnostic, Drum (ACCU-CHEK COMPACT TEST) Strip by [facility].(Non- Drug; Combo Route) route 2 times daily. [...] Zulma Dolan MD [facility] [place], [place] [address] (Wo rk) 05/28/2022 Laboratory Appointment Lab 05/28/2022 Office Visit Cardiology Zulma Dolan MD [facility] [place] [address] Liz Poole PA [facility] [place] [address] 06/10/2022 Office Visit Dermatology Laura Scherer MD [facility] [address] [place], [place] [address] (Wo rk) documented as of this encounter Visit Diagnoses Diagnosis Hx of melanoma of skin Personal history of malignant melanoma o f skin Multiple benign nevi Benign neoplasm of skin, site unspecifie d documented in this encounter Care Teams Starbucks Clerk Relationship Specialty Start Date End Date Lovely Vicente MD PCP - General 04/16/[address] [place] [address] [address] [place] [address] documented as of this encounter
--- OUTSIDE RECORDS SUMMARY | 2022-05-11 08:52 | XMS_ITS | Encounter Summary ---
:1945 [place] [address] Care Team Providers Name Role Phone Holley Hollidayica STACIE Primary Care Provider Encounter Details Date Type Department Care Team Description 03/28/2013 - [facility]/29/2013 Barbara Gomes MD Dx) [facility] [address] [place] [address] [phone] Social History Tobacco Use Types Packs/Day Years [...] please call the General Surgery nurse at [phone], since this may mean that you need morecalcium. Follow-up Appointment: Will be scheduled with Dr. Mcknight in 6 weeks Date and time as well as any required labs will be mailed to you Please call [phone] to confirm date and time of your [...] by calcium supplementation. Phone number for questions: [phone] before 5 PM weekdays [phone] after 5 PM and on weekends/holidays Please follow up with Urology as per their recommendations for Bob removal AttachmentsThe following attachments cannot be sent through Care Everywhere. THYROIDECTOMY: WHAT TO EXPECT AT HOME (CUBAN)URINARY CATHETER CARE: AFTER YOUR VISIT (CUBAN)documented in this encounter Medications at Time of [...] Willams MD - 03/28/2013 3:43 PM EDT [facility] Operative Note Patient Name: Gregory Fatima : [id number] MR#: [id number] Case Date: 03/28/2013 Surgeon: Surgeon(s) and Role: [...] Operative Note Patient Name: Gregory Fatima : [id number] MR#: [id number] Case Date: 03/28/2013 Surgeon: Surgeon(s) and Role: [...] [facility] [place] [address] (Wo rk) 05/28/2022 Laboratory Appointment Lab 05/28/2022 Office Visit Cardiology Zulma Dolan MD [facility] [place] [address] Liz Poole PA [facility] [place] [address] 06/10/2022 Office Visit Dermatology Laura Scherer MD [facility] ER DR [address] [place] [address] (Wo rk) documented as of this encounter [...] Organization Address City/State/[place] [address] CERNER MILLENNIUM (ABNORMAL) POCT [...] [facility]/[place] [address] CERNER MILLENNIUM (ABNORMAL) POCT [...] [facility]/ZIP Code Phon e Number [address] CERNER MILLENNIUM (ABNORMAL) POCT [...] [facility]/ZIP Code Phon e Number [address] CERNER MILLENNIUM (ABNORMAL) POCT [...] [facility]/ZIP Code Phon e Number [address] CERNER MILLENNIUM (ABNORMAL) POCT [...] [facility]/ZIP Code Phon e Number [address] CERNER MILLENNIUM (ABNORMAL) POCT [...] [facility]/ZIP Code Phon e Number [address] CERNER MILLENNIUM (ABNORMAL) POCT [...] [facility]/ZIP Code Phon e Number [address] [facility] Specimen to Pathology (surgical or [...] [facility]/ZIP Code Phon e Number [address] [facility] Pathology Addendum Report (03/28/2013 12:03 PM EDT) Component Value Ref Test Analysis Performed At [facility] gist Range Method Time Signature Addendum CERNER Report ? [facility] ? Provider: ?? MESHA MCKNIGHT Pt. Name: ?? GREGORY FATIMA ? Acc #: ?[id number] ?Pt. MRN: ?[id number] ? Col Date: ?? 03/28/2013 ?/Sex: ?1945,(68 [...] Address City/State/[place] [address] [facility] Surgical Pathology Report (03/28/2013 12:03 PM EDT) Component Value Ref Test Analysis Performed At [facility] gist Range Method Time Signature Surgical [facility] Pathology ? [facility] Report ? Provider: ?? MESHA MCKNIGHT Pt. Name: ?? GREGORY FATIMA ? Acc #: ?[id number] ?Pt. MRN: ?[id number] ? Col Date: ?? 03/28/2013 ?/Sex: ?1945,(68 [...] Name: ?? GREGORY FATIMA ? Acc #: ?[id number] ?Pt. MRN: ?[id number] ? Col Date: ?? 03/28/2013 ?/Sex: ?1945,(68 years),Male ? Rec Date: ?? 03/28/2013 ?LOC: ?[facility] ? SURGICAL PATHOLOGY ? SECTIONS/PROCESSING: Flame Cutting Machine Operator Helper sections are subm itted. (R6) ? B [...] Address City/State/[place] [address] CERNER MILLENNIUM Frozen Section Report (03/28/2013 12:03 PM EDT) Component Value Ref Test Analysis Performed At [facility] gist Range Method Time Signature Frozen CERNER Section ? [facility] Report ? Provider: ?? MESHA MCKNIGHT Pt. Name: ?? GREGORY FATIMA ? Acc #: ?[id number] ?Pt. MRN: ?[id number] ? Col Date: ?? 03/28/2013 ?/Sex: ?1945,(68 [...] [facility]/[place] [address] CERNER MILLENNIUM POCT Glucose [...] [facility]/ZIP Code Phon e Number [address] CERNER MILLENNIUM Specimen to [...] [facility]/[place] [address] CERNER MILLENNIUM Antibody screen (03/28/2013 9:37 AM EDT) Analysis Performed At Patho logist Time Signature Ab Screen Negative CERNER Interp MILLENNIUM Expires at [id number] CERNER 003 on: MILLENNIUM Specimen Anatomical Collection Method Collection Time Receive d Time (Source) Location / / Volume Laterality Blood specimen 03/28/2013 9:37 AM 013 9:37 (specimen) EDT AM EDT Resulting Agency Comment Spec In Lab Mesha Mcknight MD BLOOD BANK ORDERABLES Performing Organization Address City/[facility]/[place] [address] [facility] GRIS[facility]UM ABO/Rh Typing (03/28/2013 9:37 AM EDT) athologist Signature ABORh Type O Pos [facility] Specimen Anatomical Collection Method Collection Time Receive d Time (Source) Location / / Volume Laterality Blood specimen 03/28/2013 9:37 AM 013 9:37 (specimen) EDT AM EDT Resulting Agency Comment Spec In Lab Mesha Mcknight MD BLOOD BANK ORDERABLES Performing Organization Address City/[facility]/ZIP Code Phon e Number [address] [facility] Differential, [...] City/State/ZIP Code Phon e Number [place] [id number]OS[address] CERNER MILLENNIUM (ABNORMAL) Basic [...] intervals supplied above were not validated at [facility]. Results from pediatri c patients [...] Address City/State/[place] [address] CERNER MILLENNIUM (ABNORMAL) CBC [...] [facility]/ZIP Code Phon e Number [address] [facility] POCT Glucose (03/28/2013 [...] [facility]/ZIP Code Phon e Number [address] [facility] Specimen to Pathology (surgical or derm) (03/28/2013 8:55 AM EDT) Specimen Anatomical Collection Method Collection Time Receive d Time (Source) Location / / Volume Laterality AP Specimen 03/28/2013 8:55 AM 3 8:54 EDT AM EDT Narrative [facility] GR[facility]DA[facility] - 03/28/2013 8:55 AM E DT Specimen requisition ordered. ??Separate Pathology report to follow Mesha Mcknight MD PATHOLOGY/CYTOLOGY ORDERABLE S Performing Organization Address City/[facility]/ZIP Code Phon e Number [address] [facility] documented in this encounter Visit [...] RN) 0900 (Given - Provider: Radha Yao [facility] [place], RN) 2.5 mg, Oral, DAILY, First dose [...] Rice)1120 (Anesthesia Volume Adjustment - Provider: Tessa Riec)1247 (Anesthesia Volume Adjustment - Provider: Tessa Rice) [...] override documented in this encounter Care Teams Gas Substation Operator Relationship Specialty Start Date End Date Angela Holliday APRN PCP - General 01/25/13 04/15/15 [address] [place] [address] documented as of this encounter
--- OUTSIDE RECORDS SUMMARY | 2022-05-11 08:52 | XMS_ITS | Encounter Summary ---
:1945 Author Organization [facility] [place] [address] Care Team Providers Name Role Phone Angela Holliday APRN Primary Care Provider Encounter Details Date Type Department Care Team Description 04/05/2013 Office Visit Urology at [facility] [place] [address] Social History Tobacco Use Types Packs/Day [...] [facility] [place], [place] [address] (Wo rk) 05/28/2022 Laboratory Appointment Lab 05/28/2022 Office Visit Cardiology Zulma Dolan MD [facility] [place] [address] Liz Poole PA [facility] [place] [address] 06/10/2022 Office Visit Dermatology Laura Scherer MD [facility] [address] [place], [place] [address] (Wo rk) documented as of this encounter Visit Diagnoses Not on filedocumented in this encounter Care Teams Software Technician Relationship Specialty Start Date End Date Angela Holliday APRN PCP - General 01/25/13 04/15/[address] [place] [address] documented as of this encounter
--- OUTSIDE RECORDS SUMMARY | 2022-05-11 08:52 | XMS_ITS | Encounter Summary ---
:1945 Author Organization [place] [address] Care Team Providers Name Role Phone MiyaLokeshAngela STACIE Primary Care Provider Encounter Details Date Type Department Care Team Description 04/04/2013 Orders Only General Surgery at Manny Mcknight thyroid [facility] MD Eliseo carcinoma (Primary Dx) [facility] [place] [address] GENERAL SURGERY [phone] [place], [place] [address] Social History Tobacco Use Types Packs/Day Years Used Date Former Smoker Alcohol Use Standard Drinks/Week Comments No 0 (1 standard drink = 0.6 oz pure alcoho l) Sex Assigned at Date Recorded Not on file documented as of this encounter Plan of Treatment Upcoming Encounters Date Type Specialty Care Team Description 05/28/2022 Appointment Cardiology Zulma Dolan MD [facility] er [place], [place] [address] (Wo rk) 05/28/2022 Laboratory Appointment Lab 05/28/2022 Office Visit Cardiology Zulma Dolan MD [facility] [address] Liz Poole PA [facility] [place] [address] 06/10/2022 Office Visit Dermatology Laura Scherer MD [facility] [address] [place], [place] [address] (Wo rk) documented as of this encounter Visit Diagnoses Diagnosis Papillary thyroid carcinoma - Primary Malignant neoplasm of thyroid gland documented in this encounter Care Teams Ict Development Manager Relationship Specialty Start Date End Date Angela Holliday APRN PCP - General 01/25/13 04/15/[address] [place] [address] documented as of this encounter
--- OUTSIDE RECORDS SUMMARY | 2022-05-11 08:52 | XMS_ITS | Encounter Summary ---
:1945 Author Organization [facility] [address] Care Team Providers Name Role Phone Lovely Vicente MD Primary Care Provider Encounter Details Date Type Department Care Team Description 09/03/2016 Laboratory Appointment Lab at [facility] Hx of [facility] [place] [address] Social History Tobacco Use Types Packs/Day Years [...] MD [facility] er [address] [place] [address] (Wo rk) 05/28/2022 Laboratory Appointment Lab 05/28/2022 Office Visit Cardiology Zulma Dolan MD [facility] [place] [address] Liz Poole PA [facility] [place] [address] 06/10/2022 Office Visit Dermatology Laura Scherer MD [facility] ER [address] [place], [place] [address] (Wo rk) documented as of [...] AM EST) athologist Signature Thyroglobulin <0.4 <=54.9 [facility] ng/mL [facility] LAB[facility] Comment: Interpret with caution. [...] than those obtained with T4 withdrawal protocol (Winn[place]ow BR et al. J Clin Endo Metab 1999;84:3751-8969). Assay performed using the DPC Immulite T [...] Address City/State/ZIP Code Phon e Number [address] TSH (09/03/2016 11:07 AM EST) P athologist Signature TSH 3.01 0.27 - 4.20 [facility] mcIU/mL [facility] Specimen Anatomical Collection Method Collection Time Receive d Time (Source) Location / / Volume Laterality Blood specimen 09/03/2016 11:07 7 (specimen) AM EST 11:22 AM EST Resulting Agency Comment Spec In Lab Luz Prescott MD CHEMISTRY ORDERABLES Performing Organization Address City/[facility]/ZIP [facility] [place] [address] documented in this encounter Visit Diagnoses Diagnosis Hx of papillary thyroid carcinoma Personal history of malignant neoplasm o f thyroid documented in this encounter Care Teams Skelp Processor Relationship Specialty Start Date End Date Lovely Vicente MD PCP - General 04/16/[address] [place] [address] documented as of this encounter
--- OUTSIDE RECORDS SUMMARY | 2022-05-11 08:52 | XMS_ITS | Encounter Summary ---
:1945 Author Organization [facility] [place] [address] Care Team Providers Name Role Phone MiyaAngela STACIE Primary Care Provider Reason for Visit Reason Comments Post Op voiding trial Encounter Details Date Type Department Care Team Description 04/05/2013 Office Visit Urology at [facility] Darryl Egan, UTI ([facility] MD tract infection) [facility] (Primary Dx) [place] [address] UROLOGY DEPT [phone] [place], [place] [address] Social History Tobacco Use [...] Zulma Dolan MD [facility] [place], [place] [address] (Wo rk) 05/28/2022 Laboratory Appointment Lab 05/28/2022 Office Visit Cardiology Zulma Dolan MD [facility] [place] [address] Liz Poole PA [facility] [place] [address] 06/10/2022 Office Visit Dermatology Laura Scherer MD [facility] [address] [place], [place] [...] GREGORY HOANG ? Ordered By: DARRYL EGAN [facility] ? MR#: [id number] ?LOC: ??5B ? /Sex: ??1945 (68 years), [...] S ? Patient: GREGORY HOANG ? MR#: [id number] ? FOOTNOTES ? (1) ? This organism [...] City/State/[place] [address] RAKESH WALKER documented in this encounter Visit Diagnoses Diagnosis UTI (lower urinary tract infection) - Pr imary Urinary tract infection, site not specif ied documented in this encounter Care Teams Grant Administrator Relationship Specialty Start Date End Date Angela Holliday APRN PCP - General 01/25/13 04/15/[address] [place] [address] documented as of this encounter
--- OUTSIDE RECORDS SUMMARY | 2022-05-11 08:52 | XMS_ITS | Encounter Summary ---
:1945 Author Organization [facility] [place] [address] Care Team Providers Name Role Phone Miya Angela STACIE Primary Care Provider Encounter Details Date Type Department Care Team Description 04/24/2013 Telephone Urology at [facility] Zhen Bowman MD [facility] [address] UROLOGY DEPT [phone] [place], [place] [address] (Wo rk) Social History Tobacco [...] Cardiology Zulma Dolan MD [facility] [place], [place] [address] (Wo rk) 05/28/2022 Laboratory Appointment Lab 05/28/2022 Office Visit Cardiology Zulma Dolan MD [facility] [place] [address] Liz Poole PA [facility] [place] [address] 06/10/2022 Office Visit Dermatology Laura Scherer MD [facility] [address] [place], [place] [address] (Wo rk) documented as of this encounter Visit Diagnoses Not on filedocumented in this encounter Care Teams Wild Animal Caretaker Relationship Specialty Start Date End Date Angela Holliday APRN PCP - General 01/25/13 04/15/[address] [place] [address] documented as of this encounter
--- OUTSIDE RECORDS SUMMARY | 2022-05-11 08:52 | XMS_ITS | Encounter Summary ---
:1945 Author Organization [facility] [place] [address] Care Team Providers Name Role Phone Lovely Vicente MD Primary Care Provider Reason for Visit Reason Comments Skin Lesion Encounter Details Date Type Department Care Team Description 11/24/2016 [facility] uncertain behavior of skin; Road IIIMD Pigmented skin lesion of uncertain natur e; [address] [place] [address] [facility] [place] of [place] [address] [facility] SIMÓN-DERMATOLGY [place], [place] [address] Social History Tobacco Use Types [...] or concerns, please call the office at [phone]. If it is after 5PM, or a holiday or weekend, please call [phone] and ask for the Auto Parts Clerk on-call. documented in this encounter Progress Notes [...] 71 y.o. year old male.Established patient of [employer]. Last seen 06/05/16. Here today for new [...] Zulma Dolan MD [facility] er [place] [address] (Wo rk) 05/28/2022 Laboratory Appointment Lab 05/28/2022 Office Visit Cardiology Zulma Dolan MD [facility] [place] [address] Liz Poole PA [facility] [place] [address] 06/10/2022 Office Visit Dermatology Laura Scherer MD [facility] ER DR [address] [place], [place] [address] (Wo rk) documented as of [...] [place] gist Range Method Time Signature Surgical [id number] ?Location: [facility] Report The signing pathologist has (i) examined [...] x 0.1 cm. Tissue Description: Shave of crodova-white skin with a central 0.7 x 0.6 [...] Organization Address City/State/[place] [address] Specimen to Pathology (NON-OR) [...] Organization Address City/State/[place] [address] documented in this encounter Visit Diagnoses Diagnosis Neoplasm of uncertain behavior of skin Pigmented skin lesion of uncertain natur e History of melanoma Personal history of malignant melanoma o f skin documented in this encounter Care Teams Can Worker Relationship Specialty Start Date End Date Lovely Vicente MD PCP - General 04/16/[address] [place] [address] documented as of this encounter
--- OUTSIDE RECORDS SUMMARY | 2022-05-11 08:52 | XMS_ITS | Encounter Summary ---
:1945 Author Organization [facility] [address] Care Team Providers Name Role Phone Angela Holliday APRN Primary Care Provider Encounter Details Date Type Department Care Team Description 03/30/2013 Telephone General Surgery at [facility] Cliff Nevarez, [place] [address] Social History Tobacco Use Types Packs/Day [...] [facility] er [place], [place] [address] (Wo rk) 05/28/2022 Laboratory Appointment Lab 05/28/2022 Office Visit Cardiology Zulma Dolan MD [facility] [place] [address] Liz Poole PA [facility] [place] [address] 06/10/2022 Office Visit Dermatology Laura Scherer MD [facility] [address] [place], [place] [address] (Wo rk) documented as of this encounter Visit Diagnoses Not on filedocumented in this encounter Care Teams Proof Machine Operator Relationship Specialty Start Date End Date Angela Holliday APRN PCP - General 01/25/13 04/15/[address] [place] [address] documented as of this encounter
--- OUTSIDE RECORDS SUMMARY | 2022-05-11 08:52 | XMS_ITS | Encounter Summary ---
:1945 Author Organization [facility] [address] Care Team Providers Name Role Phone Angela Holliday APRN Primary Care Provider Reason for Visit Reason Comments Skin Check Encounter Details Date Type Department Care Team Description 07/31/2013 Follow-Up Dermatology at Rigoberto Forman eoplasm of unspecified nature of bone, soft tissue, and skin (Primary Dx); Abdelrahman HOOPER MD Seborrheic psoriasis- scalp and ingtergl uteal area; [address] [facility] Atypical [place] [address] [facility] [place], [place] [address] (Wo rk) Social History [...] Rigoberto Albarran MD Section of Dermatology [facility] documented in this encounter Plan of Treatment Upcoming Encounters Date Type Specialty Care Team Description 05/28/2022 Appointment Cardiology Zulma Dolan MD [facility] [address] [place] [address] (Wo lissa) 05/28/2022 Laboratory Appointment Lab 05/28/2022 Office Visit Cardiology Zulma Dolan MD [facility] [place] [address] [facility] [place] [address] 06/10/2022 Office Visit Dermatology Laura Scherer MD [facility] DR TEJA GR-DERMAT [place], [place] [address] (Wo rk) Scheduled Orders [...] Test Analysis Performed At [facility] gist Range Method Time Signature Surgical CERNER Pathology ? [facility] Report ? Provider: ?? RIGOBERTO ALBARRAN III Pt. Name: ?? GREGORY HOANG ?A ? Acc #: ?[id number] ? Pt. ? Col Date: ?? 07/31/2013 [...] negative controls. ??These ? IHC studies provide [facility] pathologist with adjunctive diagnostic information. ? [...] x 0.8 x 0.2 cm. ? [facility] ? Provider: ?? DEION III, RIGOBERTO Pt. Name: ?? GREGORY HOANG ?A ? Acc #: ?[id number] ? Pt. ? Col Date: ?? 07/31/2013 [...] [facility]/ZIP Code Phon e Number [address] CERNER MILLENNIUM Specimen to [...] [facility]/[place] [address] CERNER MILLENNIUM documented in this encounter Visit Diagnoses Diagnosis Neoplasm of unspecified nature of bone, soft tissue, and skin - Primary Seborrheic psoriasis- scalp and ingtergl uteal area Other psoriasis Atypical nevus of abdominal wall Benign neoplasm of skin of trunk, except scrotum documented in this encounter Care Teams Fiber Worker Relationship Specialty Start Date End Date Angela Holliday APRN PCP - General 01/25/13 04/15/[address] [place] [address] documented as of this encounter
--- OUTSIDE RECORDS SUMMARY | 2022-05-11 08:52 | XMS_ITS | Encounter Summary ---
:1945 Author Organization [facility] [place] [address] Care Team Providers Name Role Phone Lovely Vicnete MD Primary Care Provider Reason for Visit Reason Comments Thyroid Cancer Encounter Details Date Type Department Care Team Description 06/05/2015 Office Visit Endocrinology at [facility] Albertina Prescott, History of papillary [facility] MD Luz adenocarcinoma of [facility] thyroid (Primary Dx) [place] [address] CENTER [phone] [place] [address] Social History Tobacco Use Types Packs/Day Years [...] the thyroid gland were obtained using a Odyssey Mobile Interaction ultrasound machine. All measurements are given as AP x Transverse x Longitudinal Right Lobe: Absent Left Lobe: Absent Isthmus: Absent Central/Lateral neck: no morphologically abnormal lymph nodes. Impression: No sonographic evidence of recurrence. LZU PRESCOTT MD Atm Managerforest ecologist Section of Endocrinology [facility] Luz Prescott MD - 06/05/2015 8:21 AM [...] --f/u in 1 year LUZ PRESCOTT MD Atm Managerforest ecologist Section of Endocrinology [facility] documented in this encounter Miscellaneous Notes Addendum [...] Zulma Dolan MD [facility] [address] [place], [place] [address] (Wo rk) 05/28/2022 Laboratory Appointment Lab 05/28/2022 Office Visit Cardiology Zulma Dolan MD [facility] [place] [address] Liz Poole PA [facility] [place] [address] 06/10/2022 Office Visit Dermatology Laura Scherer MD [facility] ER DR [address]-DERMAT [place]LOGY [place], [place] [address] (Wo rk) documented as of [...] athologist Signature Thyroglobulin 0.6 <=54.9 CERNER ng/mL [facility] Comment: Interpret with caution. Tg levels [...] BR et al. J Clin Endo Metab 1999;84:2636-1361). 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
--- OUTSIDE RECORDS SUMMARY | 2022-05-11 08:52 | XMS_ITS | Encounter Summary ---
:1945 Author Organization [facility] [place] [address] Care Team Providers Name Role Phone Angela Holliday APRN Primary Care Provider Reason for Visit Reason Comments Benign Prostatic Hypertrophy Encounter Details Date Type Department Care Team Description 11/28/2013 Follow-Up Urology at [facility] Blade Smith, Urinary retention (Primary D x); [facility] BPH (benign prostatic hyperplasia) [place] [address] UROLOGY DEPT [place], [place] [address] (Wo rk) Social History Tobacco [...] Dolan MD [facility] [address] [place], [place] [address] (Wo rk) 05/28/2022 Laboratory Appointment Lab 05/28/2022 Office Visit Cardiology Zulma Dolan [place] [address] Liz Poole PA [facility] [place] [address] 06/10/2022 Office Visit Dermatology Laura Scherer MD [facility] [address] TE[address] GR-DERMAT [place], [place] [address] (Wo rk) documented as of [...] City/State/[place] [address] CERNER MILLENNIUM documented in this encounter Visit Diagnoses Diagnosis Urinary retention - Primary Retention of urine, unspecified BPH (benign prostatic hyperplasia) Unspecified hyperplasia of prostate with out urinary obstruction and other lower urinary tract symptoms (LUTS) documented in this encounter Care Teams Local Area Network Administrator Relationship Specialty Start Date End Date Angela Holliday APRN PCP - General 01/25/13 04/15/[address] [place] [address] documented as of this encounter
--- OUTSIDE RECORDS SUMMARY | 2022-05-11 08:52 | XMS_ITS | Encounter Summary ---
:1945 Author Organization [facility] [address] Care Team Providers Name Role Phone Angela Holliday STACIE Primary Care Provider Encounter Details Date Type Department Care Team Description 04/04/2013 Telephone Urology at [facility] Parker Sanchez MD [facility] [place] [address] UROLOGY DEPT [phone] [place], [place] [address] (Wo rk) Social History [...] Dolan MD [facility] Dr [place], [place] [address] (Wo rk) 05/28/2022 Laboratory Appointment Lab 05/28/2022 Office Visit Cardiology Zulma Dolan MD [facility] [place] [address] Liz Poole PA [facility] [place] [address] 06/10/2022 Office Visit Dermatology Laura Scherer MD [facility] DR TEJA GR-DERMAT [place], [place] [address] (Wo rk) documented as of this encounter Visit Diagnoses Not on filedocumented in this encounter Care Teams Payroll Human Resources Assistant Relationship Specialty Start Date End Date Angela Holliday APRN PCP - General 01/25/13 04/15/[address] [place] [place] [address] documented as of this encounter
--- OUTSIDE RECORDS SUMMARY | 2022-05-11 08:52 | XMS_ITS | Encounter Summary ---
:1945 Author Organization [facility] [place] [address] Care Team Providers Name Role Phone Lovely Vicente MD Primary Care Provider Encounter Details Date Type Department Care Team Description 11/28/2016 Telephone Dermatology at [facility] Rigoberto Garcia III, [address] [place] [address] [facility] [phone] [facility] MCALLEN SIMÓN-DERMAT [place], [place] [address] (Wo rk) Social History Tobacco [...] Dolan MD [facility] Dr [place], [place] [address] (Wo rk) 05/28/2022 Laboratory Appointment Lab 05/28/2022 Office Visit Cardiology Zulma Dolan MD [facility] [place] [address] Liz Poole PA [facility] [place] [address] 06/10/2022 Office Visit Dermatology Laura Scherer MD [facility] DR TEJA MARIE-DERMAT [place], [place] [address] (Wo rk) documented as of this encounter Visit Diagnoses Not on filedocumented in this encounter Care Teams Atomic Physics Professor Relationship Specialty Start Date End Date Lovely Vicente MD PCP - General 04/16/[address] [place] [address] documented as of this encounter
--- OUTSIDE RECORDS SUMMARY | 2022-05-11 08:52 | XMS_ITS | Encounter Summary ---
:1945 Author Organization [facility] [place] [address] Care Team Providers Name Role Phone Angela Holliday APRN Primary Care Provider Reason for Visit Reason Onset Date Comments Other 03/30/2013 blood in catheter ba g Encounter Details Date Type Department Care Team Description 03/30/2013 Telephone General Surgery at [facility] Janneth Sharma, Other (blood in [facility] RN catheter bag) [place] [address] Social History Tobacco Use Types Packs/Day [...] Zulma Dolan MD [facility] [place], [place] [address] (Wo rk) 05/28/2022 Laboratory Appointment Lab 05/28/2022 Office Visit Cardiology Zulma Dolan MD [facility] [place] [address] Liz Poole PA [facility] [place] [address] 06/10/2022 Office Visit Dermatology Laura Scherer MD [facility] DR TEJA GR-DERMAT [place], [place] [address] (Wo rk) documented as of this encounter Visit Diagnoses Not on filedocumented in this encounter Care Teams Hardware Design Engineer Relationship Specialty Start Date End Date Angela Holliday APRN PCP - General 01/25/13 04/15/[address] [place] [address] documented as of this encounter
--- OUTSIDE RECORDS SUMMARY | 2022-05-11 08:52 | XMS_ITS | Encounter Summary ---
:1945 Author Organization [facility] [place] [address] Care Team Providers Name Role Phone Lovely Vicente MD Primary Care Provider Reason for Visit Reason Comments Medication Refill Encounter Details Date Type Department Care Team Description 05/10/2015 Refill Endocrinology at [facility] Rosalind Covarrubias, [facility] [place] [address] [facility] [phone] ENDOCRINOLOGY [place], [place] [address] (Wo rk) Social History Tobacco [...] MD [facility] er [address] [place], [place] [address] (Wo rk) 05/28/2022 Laboratory Appointment Lab 05/28/2022 Office Visit Cardiology Zulma Dolan MD [facility] [place] [address] Liz Poole PA [facility] [place] [address] 06/10/2022 Office Visit Dermatology Laura Scherer MD [facility] ER DR TEJA GR-DERMAT [place], [place] [address] (Wo rk) documented as of this encounter Visit Diagnoses Not on filedocumented in this encounter Care Teams Horticulture Instructor Relationship Specialty Start Date End Date Lovely Vicente MD PCP - General 04/16/[address] [place] [address] documented as of this encounter
--- OUTSIDE RECORDS SUMMARY | 2022-05-11 08:52 | XMS_ITS | Encounter Summary ---
:1945 Author Organization [facility] [place] [address] Care Team Providers Name Role Phone MiyaAngela STACIE Primary Care Provider Reason for Visit Reason Comments Urinary Retention Encounter Details Date Type Department Care Team Description 05/16/2013 Follow-Up Urology at [facility] Blade Smith, Retention of urine [facility] (Primary Dx) [place] [address] UROLOGY DEPT [place] [id number] (Wo rk) Social History Tobacco Use Types [...] Dolan MD [facility] Dr [place], [place] [address] (Wo rk) 05/28/2022 Laboratory Appointment Lab 05/28/2022 Office Visit Cardiology Zulma Dolan MD [facility] [place] [address] Liz Poole PA [facility] [place] [address] 06/10/2022 Office Visit Dermatology Laura Scherer MD [facility] DR TEJA GR-DERMAT [place], [place] [address] (Wo rk) documented as of this encounter Visit Diagnoses Diagnosis Retention of urine - Primary Retention of urine, unspecified documented in this encounter Care Teams Business Librarian Relationship Specialty Start Date End Date Angela Holliday APRN PCP - General 01/25/13 04/15/[address] [place] [address] documented as of this encounter
--- OUTSIDE RECORDS SUMMARY | 2022-05-11 08:52 | XMS_ITS | Encounter Summary ---
:1945 Author Organization [facility] [place] [address] Care Team Providers Name Role Phone Lovely Vicente MD Primary Care Provider Reason for Visit Reason Comments Skin Check Encounter Details Date Type Department Care Team Description 06/05/2016 Office Visit Dermatology at [facility]an istory of melanoma; Abdelrahman HOOPER MD Seborrheic keratosis; [address] [place] [address] [facility] [place] (actinic keratosis); [place] [address] Multiple nevi; [phone] [facility] [address]-DERMATOLGY [place], [place] [address] Social History Tobacco Use Types [...] Drum (ACCU-CHEK COMPACT TEST) Strip by [facility]Non- Drug; Combo Route) route 2 times daily. [...] Garcia MD Section of Dermatology [facility] documented in this encounter Plan of Treatment Upcoming Encounters Date Type Specialty Care Team Description 05/28/2022 Appointment Cardiology Zulma Dolan MD [facility] [place], [place] [address] (Wo rk) 05/28/2022 Laboratory Appointment Lab 05/28/2022 Office Visit Cardiology Zulma Dolan MD [facility] [place] [address] Liz Poole PA [facility] [place] [address] 06/10/2022 Office Visit Dermatology Laura Scherer MD [facility] DR TEJA GR-DERMAT [place], [place] [address] (Wo rk) documented as of this encounter Visit Diagnoses Diagnosis History of melanoma Personal history of malignant melanoma o f skin Seborrheic keratosis Other seborrheic keratosis [place] (actinic keratosis) Actinic keratosis Multiple nevi Benign neoplasm of skin, site unspecifie d Scar Scar condition and fibrosis of skin documented in this encounter Care Teams Physician Interventional Cardiologist Relationship Specialty Start Date End Date Lovely Vicente MD PCP - General 04/16/[address] [place] [address] documented as of this encounter
--- OUTSIDE RECORDS SUMMARY | 2022-05-11 08:52 | XMS_ITS | Encounter Summary ---
:1945 Author Organization [facility] [address] Care Team Providers Name Role Phone MiyaLokeshAngela STACIE Primary Care Provider Encounter Details Date Type Department Care Team Description 01/16/2014 Hospital Encounter Gastroenterology at [facility] Nohemi Swann, [facility] [place] [address] [facility] [phone] [facility]. [place], [place] [address] Social History Tobacco Use [...] you need to be checked. [facility] [phone] 8a-5p Same Day Endo [phone] 7a-8p Otherwise contact [phone] and ask to speak to the supervisor soakers conduit reamer operator Follow up care is a shelton [...] Swann MD - 01/16/2014 9:49 AM EDT [facility] Operative Note Patient Name: Gregory Fatima : [id number] MR#: [id number] Case Date: 01/16/2014 Surgeon: Surgeon(s) and Role: * Nohemi Swann MD - Primary Preoperative diagnosis: 5 yr surv. Full procedure note is documented under the Procedure section of eDH. documented in this encounter Plan of Treatment Upcoming Encounters Date Type Specialty Care Team Description 05/28/2022 Appointment Cardiology Zulma Dolan MD [facility] [address] [place], [place] [address] (Wo rk) 05/28/2022 Laboratory Appointment Lab 05/28/2022 Office Visit Cardiology Zulma Dolan MD [facility] [place] [address] Liz Poole PA [facility] [place] [address] 06/10/2022 Office Visit Dermatology Laura Scherer MD [facility] DR TE[address] GR-DERMAT [place], [place] [address] (Wo rk) documented as of this encounter [...] (01/16/2014 9:53 AM EDT) [facility] Method Time Signature Surgical CERNER Pathology ? [facility] Report ? Provider: ?? NOHEMI SWANN ?Pt. Name: ?? MALICKEliseo RT, GREGORY E ? Acc #: ?[id number] ?Pt. MRN: ?[id number] ? Col Date: ?? 4 ? /Sex: [...] City/State/ZIP Code Phon e Number [place] [phone] LAB[address] RAKESH WALKER Specimen to Pathology (surgical or derm) (01/16/2014 9:53 AM EDT) Specimen Anatomical Collection Method Collection Time Receive d Time (Source) Location / / Volume Laterality AP Specimen 01/16/2014 9:53 AM 201 4 9:53 EDT AM EDT Narrative RAKESH CRAVALHOIUM - 01/16/2014 9:53 AM E DT Specimen requisition ordered. ??Separate Pathology report to follow Nohemi Swann MD PATHOLOGY/CYTOLOGY ORDERABLE S Performing Organization Address City/State/[place] [address] [facility] Specimen to Pathology (surgical or derm) [...] City/[facility]/[place] [address] CERNER MILLENNIUM COLONOSCOPY (01/16/2014 7:25 AM EDT) [facility] gist Method Time Signature COLONOSCOPY [facility] PROVATION Endoscopy Patient Name: Gregory Fatima ? Procedure Date: 01/16/2014 7:25 AM ? N: [id number] ? Date of : 1945 ? Age: 68 ? Order #: [id number] ? Procedure: ? Colonoscopy Indications: ? High risk colon cancer surveillance : ? 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 dm on metformin with bs ~ 110 this ? am,s/p melanoma years ago, os a, ? goiter s/p surgery, [facility] Providers: ? Nohemi Swann MD, Blanca xiong, [...] Laterality 01/16/2014 7:25 AM EDT Angela Sotelo REVERBERATORY FURNACE SUPERVISOR GENERAL SURGICAL ORDERABLES Performing Organization Address [...] in this encounter Care Teams High School Auto Repair Teacher Relationship Specialty Start Date End Date Angela Sotelo APRN PCP - General 01/25/13 04/15/[address] [place] [address] documented as of this encounter
--- OUTSIDE RECORDS SUMMARY | 2022-05-11 08:52 | XMS_ITS | Encounter Summary ---
:1945 Author Organization [facility] [place] [address] Care Team Providers Name Role Phone MiyaAngela STACIE Primary Care Provider Encounter Details Date Type Department Care Team Description 11/27/2013 Orders Only Urology at [facility] Blade Smith, Urinary retention [facility] (Primary Dx) [place] [address] UROLOGY DEPT [place], [place] [address] Social History Tobacco Use Types Packs/Day Years Used Date Former Smoker Alcohol Use Standard Drinks/Week Comments No 0 (1 standard drink = 0.6 oz pure alcoho l) Sex Assigned at Date Recorded Not on file documented as of this encounter Plan of Treatment Upcoming Encounters Date Type Specialty Care Team Description 05/28/2022 Appointment Cardiology Zulma Dolan MD [facility] er [place], [place] [address] (Wo rk) 05/28/2022 Laboratory Appointment Lab 05/28/2022 Office Visit Cardiology Zulma Dolan MD [facility] [place] [address] [facility] [place] [address] 06/10/2022 Office Visit Dermatology Laura Scherer MD [facility] ER DR TEJA GR-DERMAT [place]LOG[place], [place] [address] (Wo rk) documented as of [...] Organization Address City/State/[place] [address] CERNER MILLENNIUM documented in this encounter Visit Diagnoses Diagnosis Urinary retention - Primary Retention of urine, unspecified documented in this encounter Care Teams Shot Peening Operator Relationship Specialty Start Date End Date Angela Holliday APRN PCP - General 01/25/13 04/15/[address] [place] [place] [address] documented as of this encounter
--- OUTSIDE RECORDS SUMMARY | 2022-05-11 08:52 | XMS_ITS | Encounter Summary ---
:1945 Author Organization [facility] [place] [address] Care Team Providers Name Role Phone Lovely Vicente MD Primary Care Provider Reason for Visit Reason Onset Date Comments Medication Refill 06/19/2016 Encounter Details Date Type Department Care Team Description 06/19/2016 Refill Endocrinology at [facility] Luz Stallings MD [facility] [place] [address] ENDOCRINOLOGY DEPT [phone] [place], [place] [address] (Wo rk) Social History [...] MD [facility] [place] [address] [place] [address] (Wo rk) 05/28/2022 Laboratory Appointment Lab 05/28/2022 Office Visit Cardiology Zulma Dolan MD [facility] [place] [address] Liz Poole PA [facility] [place] [address] 06/10/2022 Office Visit Dermatology Laura Scherer MD [facility] DR TE[address] GR-DERMAT [place], [place] [address] (Wo rk) documented as of this encounter Visit Diagnoses Not on filedocumented in this encounter Care Teams Brazing Furnace Operator Relationship Specialty Start Date End Date Lovely Vicente MD PCP - General 04/16/[address] [place], [place] [address] documented as of this encounter
--- OUTSIDE RECORDS SUMMARY | 2022-05-11 08:52 | XMS_ITS | Encounter Summary ---
:1945 Author Organization [facility] [place] [address] Care Team Providers Name Role Phone Som Holliday APRN Primary Care Provider Encounter Details Date Type Department Care Team Description 04/11/2014 Procedure visit Gastroenterology at [facility] Esophageal reflux [facility] Luz Winchester RN (Primary Dx) [place] [address] Social History Tobacco Use Types Packs/Day Years Used Date Former Smoker Alcohol Use Standard Drinks/Week Comments No 0 (1 standard drink = 0.6 oz pure alcoho l) Sex Assigned at Date Recorded Not on file documented as of this encounter Progress Notes Adalid Can MD - 04/13/2014 3:43 PM EDT ESOPHAGEAL MANOMETRY Don Fatima Male, 69 yrs, 1945 PCP: SOM HOLLIDAY SHELTER MONITOR: NONE STUDY DATE: 04/11/14 PROVIDER: Adalid Can, PhD, MD ([id number]) INDICATION Reflux; preoperative evaluation. METHODS Stationary esophageal manometry was performed with the [employer] esophageal motility system utilizing the Polygram software [...] of the esophagus. Adalid Can, PhD, MD linen clerk, [employer] Section of Gastroenterology and Hepatology [facility] [place] [address] V: [phone] F: [phone] [facility]/gabriela CC/EC: PCP - staff msg copy 04/13/14 Henrique Taylor MD - fax copy 04/13/14 Luz Keller RN - 04/11/2014 8:14 AM EDT Esophageal manometry performed without difficulty and Was well tolerated. documented in this encounter Plan of Treatment Upcoming Encounters Date Type Specialty Care Team Description 05/28/2022 Appointment Cardiology Zulma Dolan MD [facility] [place], [place] [address] (Wo rk) 05/28/2022 Laboratory Appointment Lab 05/28/2022 Office Visit Cardiology Zulma Dolan MD [facility] [place] [address] Liz Poole PA [facility] [place] [address] 06/10/2022 Office Visit Dermatology Laura Scherer MD [facility] DR TEJA GR[place]MAT [place], [place] [address] (Wo rk) documented as of this encounter Visit Diagnoses Diagnosis Esophageal reflux - Primary documented in this encounter Care Teams Stucco Mason Relationship Specialty Start Date End Date Som Holliday APRN PCP - General 01/25/13 04/15/[address] [place] [address] documented as of this encounter
--- OUTSIDE RECORDS SUMMARY | 2022-05-11 08:52 | XMS_ITS | Encounter Summary ---
:1945 Author Organization [facility] [place] [address] Care Team Providers Name Role Phone Angela Holliday APRN Primary Care Provider Reason for Visit Reason Comments Other Encounter Details Date Type Department Care Team Description 08/01/2013 Telephone Dermatology at [facility] Rigoberto Garcia III, [address] [place] [address] [facility] [phone] TEJA MARIE-DERMAT [place], [place] [address] (Wo rk) Social History [...] them. Component Value Surgical Pathology Final Report [facility] Provider: RIGOBERTO GARCIA III Pt. Name: DON HOANG Acc #: [id number] Pt. Col Date: 07/31/2013 /Sex: 1945,(68 years),Male Rec Date: 07/31/2013 LOC: [facility] SUR[facility] ---Pathologic Diagnosis--- Skin, right abdomen, [...] Dolan MD [facility] [place], [place] [address] (Wo lissa) 05/28/2022 Laboratory Appointment Lab 05/28/2022 Office Visit Cardiology Zulma Dolan MD [facility] [place] [address] Liz Poole PA [facility] [place] [address] 06/10/2022 Office Visit Dermatology Laura Scherer MD [facility] DR TEJA MARIE-DERMAT [place], [place] [address] (Wo rk) documented as of this encounter Visit Diagnoses Not on filedocumented in this encounter Care Teams Reel Slitter Relationship Specialty Start Date End Date Angela Holliday APRN PCP - General 01/25/13 04/15/[address] [place] [address] documented as of this encounter
--- OUTSIDE RECORDS SUMMARY | 2022-05-11 08:52 | XMS_ITS | Encounter Summary ---
:1945 Author Organization [facility] Address [facility] [place] [address] Care Team Providers Name Role Phone Lovely Vicente MD Primary Care Provider Reason for Visit Reason Comments Skin Check Encounter Details Date Type Department Care Team Description 11/05/2015 Office Visit Dermatology at Rigoberto Forman benign nevi; Abdelrahman HOOPER MD Lentigines; [address] [facility] History of melanoma; [place] [address] Skin exam for malignant neoplasm [phone] [facility] [place], [place] [address] Social History Tobacco Use Types [...] Diagnostic, Drum (ACCU-CHEK COMPACT TEST) Strip by [facility]Non- Drug; Combo Route) route 2 times daily. [...] the presence of Dr. Garcia.: GINNY CHRISTIANSEN ORIENTATION AND MOBILITY INSTRUCTOR and Judit Cruz, Clinical Scribe I performed the above scribed service and agree with the accuracy of the documentation in this encounter. Rigoberto Garcia MD Section of Dermatology [facility] documented in this encounter Plan of Treatment Upcoming Encounters Date Type Specialty Care Team Description 05/28/2022 Appointment Cardiology Zulma Dolan MD [facility] [address] [place], [place] [address] (Wo rk) 05/28/2022 Laboratory Appointment Lab 05/28/2022 Office Visit Cardiology Zulma Dolan MD [facility] [place] [address] Liz Poole PA [facility] [place] [address] 06/10/2022 Office Visit Dermatology Laura Scherer MD [facility] [address] TE[address] [place], [place] [address] (Wo rk) documented as of this encounter Visit Diagnoses Diagnosis Multiple benign nevi Benign neoplasm of skin, site unspecifie d Lentigines Other dyschromia History of melanoma Personal history of malignant melanoma o f skin Skin exam for malignant neoplasm Screening for malignant neoplasm of the skin documented in this encounter Care Teams Kaitara Taraka Relationship Specialty Start Date End Date Lovely Vicente MD PCP - General 04/16/15 [facility] [address] [place] [address] (work) documented as of this encounter
--- OUTSIDE RECORDS SUMMARY | 2022-05-11 08:52 | XMS_ITS | Encounter Summary ---
:1945 Author Organization [facility] [place] [address] Care Team Providers Name Role Phone Angela Holliday APRN Primary Care Provider Encounter Details Date Type Department Care Team Description 04/30/2014 Orders Only Endocrinology at [facility] Albertina Palmer, Thyroid cancer [facility] Jorge Boyer MD (Primary Dx) [place] [address] [facility] [phone] CENTER ENDOCRINOLOGY DEPT [place], [place] [address] Social History Tobacco Use Types [...] MD [facility] er Dr [place], [place] [address] (Wo rk) 05/28/2022 Laboratory Appointment Lab 05/28/2022 Office Visit Cardiology Zulma Dolan MD [facility] [place] [address] Liz Poole PA [facility] [place] [address] 06/10/2022 Office Visit Dermatology Laura Scherer MD [facility] ER DR TEJA GR[address]DERMAT [place], [place] [address] (Wo rk) documented as of this encounter Visit Diagnoses Diagnosis Thyroid cancer - Primary Malignant neoplasm of thyroid gland documented in this encounter Care Teams Salesperson Shoes Relationship Specialty Start Date End Date Angela Holliday APRN PCP - General 01/25/13 04/15/[address] [place] [address] documented as of this encounter
--- OUTSIDE RECORDS SUMMARY | 2022-05-11 08:52 | XMS_ITS | Encounter Summary ---
:1945 Author Organization [facility] [place] [address] Care Team Providers Name Role Phone Angela Holliday APRN Primary Care Provider Encounter Details Date Type Department Care Team Description 03/28/2013 Surgery Main Operating Room Mesha Mcknight, THYROIDECTOMY, [facility] [address] [place]idd[place] [address] [place] [address] [phone] (Wo rk) Social History Tobacco Use Types [...] the General Surgery nurse at [phone], since this may mean that you need morecalcium. Follow-up Appointment: Will be scheduled with Dr. Mcknight in 6 weeks Date and time as well as any required labs will be mailed to you Please call [phone] to confirm date and time of your [...] by calcium supplementation. Phone number for questions: [phone] before 5 PM weekdays [phone] after 5 PM and on weekends/holidays Please [...] a 68 y.o. male presents to [facility] today for total thyroidectomy. See full [...] Operative Note Patient Name: Gregory Fatima : [id number] MR#: [id number] Case Date: 03/28/2013 Surgeon: Surgeon(s) and Role: [...] was extubated and taken to the [facility] in stable condition. At the end [...] Operative Note Patient Name: Gregory Fatima : [id number] MR#: [id number] Case Date: 03/28/2013 Surgeon: Surgeon(s) and Role: [...] [facility] [place] [address] [place] [address] (Wo rk) 05/28/2022 Laboratory Appointment Lab 05/28/2022 Office Visit Cardiology Zulma Dolan MD [facility] [place] [address] Liz Poole PA [facility] [place] [address] 06/10/2022 Office Visit Dermatology Laura Scherer MD [facility] ER DR TEJA GR[address] [place] [address] (Wo rk) documented as of this encounter [...] Organization Address City/State/[place] [address] CERNER MILLENNIUM (ABNORMAL) POCT [...] Address City/[facility]/[place] [address] CERNER MILLENNIUM (ABNORMAL) POCT [...] Address City/[facility]/ZIP Code Phon e Number [address] CERNER MILLENNIUM (ABNORMAL) [...] Address City/[facility]/ZIP Code Phon e Number [address] CERNER MILLENNIUM (ABNORMAL) [...] Address City/[facility]/ZIP Code Phon e Number [address] CERNER MILLENNIUM (ABNORMAL) [...] Address City/[facility]/ZIP Code Phon e Number [address] CERNER MILLENNIUM (ABNORMAL) [...] Address City/[facility]/ZIP Code Phon e Number [address] CERNER MILLENNIUM (ABNORMAL) [...] Address City/[facility]/ZIP Code Phon e Number [address] [facility] Specimen to Pathology (surgical or [...] Address City/[facility] Hospital/ZIP Code Phon e Number [address] [facility] Pathology Addendum Report (03/28/2013 12:03 PM EDT) Component Value Ref Test Analysis Performed At [facility] gist Range Method Time Signature Addendum CERNER Report ? [facility] ? Provider: ?? MESHA MCKNIGHT Pt. Name: ?? GREGORY FATIMA ? Acc #: ?[id number] ?Pt. MRN: ?[id number] ? Col Date: ?? 03/28/2013 ?/Sex: ?1945,(68 [...] [place] [address] [facility] Surgical Pathology Report (03/28/2013 12:03 PM EDT) Component Value Ref Test Analysis Performed At [facility] gist Range Method Time Signature Surgical [facility] Pathology ? [facility] Report ? Provider: ?? MESHA MCKNIGHT Pt. Name: ?? GREGORY FATIMA ? Acc #: ?[id number] ?Pt. MRN: ?[id number] ? Col Date: ?? 03/28/2013 ?/Sex: ?1945,(68 [...] areas of hemorrhage and ? calcifications. ? [facility] ? Provider: ?? MESHA MCKNIGHT Pt. Name: ?? GREGORY FATIMA ? Acc #: ?[id number] ?Pt. MRN: ?[id number] ? Col Date: ?? 03/28/2013 ?/Sex: ?1945,(68 years),Male ? Rec Date: ?? 03/28/2013 ?LOC: ?[facility] ? SURGICAL PATHOLOGY ? SECTIONS/PROCESSING: Senior Electrical Designer sections are subm itted. (R6) ? [...] [place] [address] CERNER MILLENNIUM Frozen Section Report (03/28/2013 12:03 PM EDT) Component Value Ref Test Analysis Performed At [facility] gist Range Method Time Signature Frozen CERNER Section ? [facility] Report ? Provider: ?? MESHA MCKNIGHT Pt. Name: ?? GREGORY FATIMA ? Acc #: ?[id number] ?Pt. MRN: ?[id number] ? Col Date: ?? 03/28/2013 ?/Sex: ?1945,(68 [...] Address City/[facility] Hospital/[place] [address] CERNER MILLENNIUM POCT Glucose [...] Address City/[facility] Hospital/ZIP Code Phon e Number [address] CERNER MILLENNIUM Specimen [...] Address City/[facility]/[place] [address] CERNER MILLENNIUM Antibody screen (03/28/2013 9:37 AM EDT) Analysis Performed At Patho logist Time Signature Ab Screen Negative CERNER Interp MILLENNIUM Expires at [id number] CERNER 481 on: MILLENNIUM Specimen Anatomical Collection Method Collection Time Receive d Time (Source) Location / / Volume Laterality Blood specimen 03/28/2013 9:37 AM 013 9:37 (specimen) EDT AM EDT Resulting Agency Comment Spec In Lab Mesha Mcknight MD BLOOD BANK ORDERABLES Performing Organization Address City/[facility] Hospital/Z[place] [address] [facility]IS[facility] ABO/Rh Typing (03/28/2013 9:37 AM EDT) athologist Signature ABORh Type O Pos [facility] Specimen Anatomical Collection Method Collection Time Receive d Time (Source) Location / / Volume Laterality Blood specimen 03/28/2013 9:37 AM 013 9:37 (specimen) EDT AM EDT Resulting Agency Comment Spec In Lab Mesha Mcknight MD BLOOD BANK ORDERABLES Performing Organization Address City/[facility] Hospital/ZIP Code Phon e Number [address] [facility] Differential, Automated (03/28/2013 9:34 AM EDT) athologist [...] differential will be performed. Melias Gran Abs 0.02 0.00 - 0.05 x10(3)/mcL CER NER MILLENNIUM Specimen Anatomical Collection Method Collection Time Receive d Time (Source) Location / / Volume Laterality Blood specimen 03/28/2013 9:34 AM 013 9:38 (specimen) EDT AM EDT Mesha Mcknight MD HEMATOLOGY ORDERABLES Performing Organization Address City/State/ZIP Code Phon e Number [place] [id number]OS[address] CERNER MILLENNIUM (ABNORMAL) Basic [...] [place] [address] CERNER MILLENNIUM (ABNORMAL) CBC [...] 9.0 - 12.0 CERNER fL [facility] Specimen Anatomical Collection Method Collection Time Receive d Time (Source) Location / / Volume Laterality Blood specimen 03/28/2013 9:34 AM 013 9:38 (specimen) EDT AM EDT Resulting Agency Comment Spec In Lab Mesha Mcknight MD HEMATOLOGY ORDERABLES Performing Organization Address City/[facility] Hospital/ZIP Code Phon e Number [address] [facility] POCT Glucose (03/28/2013 9:17 AM EDT) athologist Signature POC Glucose 108 60 - 199 CERNER mg/dL [facility] Comment: Supplemental ranges: <110 mg/dL before meals <200 mg/dL all other times of the day Specimen Anatomical Collection Method Collection Time Receive d Time (Source) Location / / Volume Laterality Blood specimen 03/28/2013 9:17 AM 013 9:17 (specimen) EDT AM EDT Mesha Mcknight MD POINT OF CARE TEST ORDERABLE S Performing Organization Address City/[facility] Hospital/ZIP Code Phon e Number [address] [facility] Specimen to Pathology (surgical or derm) (03/28/2013 8:55 AM EDT) Specimen Anatomical Collection Method Collection Time Receive d Time (Source) Location / / Volume Laterality AP Specimen 03/28/2013 8:55 AM 3 8:54 EDT AM EDT Narrative [facility] GRISELDAENNIUM - 03/28/2013 8:55 AM E DT Specimen requisition ordered. ??Separate Pathology report to follow Mesha Mcknight MD PATHOLOGY/CYTOLOGY ORDERABLE S Performing Organization Address City/[facility] Hospital/ZIP Code Phon e Number [address] RAKESH WALKER documented [...] Angela Breaux RN) 0900 (Given - Provider: Radah Yao [facility]) 2.5 mg, Oral, DAILY, [...] override documented in this encounter Care Teams Manager Financial Relationship Specialty Start Date End Date Angela Holliday APRN PCP - General 01/25/13 04/15/15 [address] [place] [address] documented as of this encounter
--- OUTSIDE RECORDS SUMMARY | 2022-05-11 08:52 | XMS_ITS | Encounter Summary ---
:1945 Author Organization [place] [address] Care Team Providers Name Role Phone Lovely Vicente MD Primary Care Provider Encounter Details Date Type Department Care Team Description 09/03/2016 Office Visit Endocrinology at [facility] Maria Ines Stallings of [facility] [place] [address] [place] [address] ENDOCRINOLOGY DEPT [place], [place] [address] Social History Tobacco Use Types [...] to his magnesium pill. LUZ PRESCOTT MD Department Of Natural Resources Officerskin lap bonder Section of Endocrinology [facility] Luz Prescott MD - 09/03/2016 11:30 AM [...] sonographic evidence of recurrence. LUZ PRESCOTT MD Department Of Natural Resources Officerskin lap bonder Section of Endocrinology [facility] documented in this encounter Plan of Treatment Upcoming Encounters Date Type Specialty Care Team Description 05/28/2022 Appointment Cardiology Zulma Dolan MD [facility] [address] [place], [place] [address] (Wo rk) 05/28/2022 Laboratory Appointment Lab 05/28/2022 Office Visit Cardiology Zulma Dolan MD [facility] [place] [address] Liz Poole PA [facility] [place] [address] 06/10/2022 Office Visit Dermatology Laura Scherer MD [facility] DR TEJA GR[place], [place] [address] (Wo rk) documented as of this encounter Results Thyroglobulin (09/07/2017 2:41 PM EST) P athologist Signature Thyroglobulin 1.4 <=54.9 KATALINA RYAN ng/mL [facility] Comment: Thyroglobulin levels may be unreliable a nd falsely low in TgAb positive samples (TgAb <20 is consistent with TgAb negati vity). If Tg Antibodies are present an alternative Tg assay performed via mass spectrometry may be indicated. ??A clinical cutoff of <2.0 ng/ml should be used for athyrotic individuals. Pediatric reference ranges have not been established. Assay performed using the [employer]elia Immulite T g immunometric assay (lowest detection limit is <0.4 ng/ml). Thyroglob Ab <20.0 0.0 - 40.0 IU/mL [facility] Comment: Assay performed is the DPC Immulite Tg-A b immunometric assay. (Cutoff for TgAb negativity is <20 IU/ml ) Specimen Anatomical Collection Method Collection Time Receive d Time (Source) Location / / Volume Laterality Blood specimen 09/07/2017 2:41 PM 018 2:46 (specimen) EST PM EST Resulting Agency Comment Spec In Lab Luz Prescott MD CHEMISTRY ORDERABLES Performing Organization Address City/[facility]/ZIP Code Phon e Number [address] TSH (09/07/2017 2:41 PM EST) athologist Signature TSH 3.93 0.27 - 4.20 [facility] mlU/ML [facility] Specimen Anatomical Collection Method Collection Time Receive d Time (Source) Location / / Volume Laterality Blood specimen 09/07/2017 2:41 PM 018 2:46 (specimen) EST PM EST Resulting Agency Comment Spec In Lab Luz Prescott MD CHEMISTRY ORDERABLES Performing Organization Address City/[facility] Phon e Number [address] Thyroglobulin (09/03/2016 11:07 AM EST) athologist Signature Thyroglobulin <0.4 <=54.9 [facility] ng/mL [facility] Comment: Interpret with caution. Tg levels [...] than those obtained with T4 withdrawal protocol ([place] BR et al. J Clin Endo Metab 1999;84:1775-5658). Assay performed using the DPC Immulite T g immunometric assay. (lowest detection limit is <0.4 ng/ml). Thyroglob Ab <20.0 0.0 - 40.0 IU/mL [facility] Comment: Assay performed is the DPC Immulite Tg-A b immunometric assay. (Cutoff for TgAb negativity is <20 IU/ml ) Specimen Anatomical Collection Method Collection Time Receive d Time (Source) Location / / Volume Laterality Blood specimen 09/03/2016 11: 7 1:37 (specimen) AM EST PM EST Resulting Agency Comment Spec In Lab Luz Prescott MD CHEMISTRY ORDERABLES Performing Organization Address City/[facility]/ZIP Code Phon e Number [address] TSH (09/03/2016 11:07 AM EST) P athologist Signature TSH 3.01 0.27 - 4.20 [facility] mcIU/mL [facility] Specimen Anatomical Collection Method Collection Time Receive d Time (Source) Location / / Volume Laterality Blood specimen 09/03/2016 11:07 7 (specimen) AM EST 11:22 AM EST Resulting Agency Comment Spec In Lab Luz Prescott MD CHEMISTRY ORDERABLES Performing Organization Address City/[facility]/ZIP [place] [address] documented in this encounter Visit Diagnoses Diagnosis Hx of papillary thyroid carcinoma Personal history of malignant neoplasm o f thyroid documented in this encounter Care Teams Broke Beater Machine Operator Relationship Specialty Start Date End Date Lovely Vicente MD PCP - General 04/16/[address] [place] [address] documented as of this encounter
--- OUTSIDE RECORDS SUMMARY | 2022-05-11 08:53 | XMS_ITS | Encounter Summary ---
:1945 Author Organization [facility] [place] [address] Care Team Providers Name Role Phone Adi Costello MD Primary Care Provider Reason for Visit Reason Comments Annual Exam ckeck his groin and melanoma follow-up Encounter Details Date Type Department Care Team Description 11/21/2010 Follow-Up Dermatology Arik Tipton Melanoma (Primary Dx) [facility] MD Jorge [place] [id number] DERMATOLOGY DEPT . 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, [...] Arik Tipton MD Section of Dermatology [facility] documented in this encounter Plan of Treatment Upcoming Encounters Date Type Specialty Care Team Description 05/28/2022 Appointment Cardiology Zulma Dolan MD [facility] Dr [place], [place] [address] (Wo rk) 05/28/2022 Laboratory Appointment Lab 05/28/2022 Office Visit Cardiology Zulma Dolan [place] [address] Liz Poole PA [facility] [place] [address] 06/10/2022 Office Visit Dermatology Laura Scherer MD [facility] DR [address] [place], [place] [address] (Wo rk) documented as of this encounter Visit Diagnoses Diagnosis Melanoma - Primary Melanoma of skin, site unspecified documented in this encounter Care Teams Decay Control Operator Relationship Specialty Start Date End Date Adi Costello MD PCP - General 06/17/10 09/21/11 [address] [place] [address] documented as of this encounter
--- OUTSIDE RECORDS SUMMARY | 2022-05-11 08:53 | XMS_ITS | Encounter Summary ---
:1945 Author Organization [facility] [place] [address] Care Team Providers Name Role Phone Unknown Primary Care Provider Unavailable Reason for Visit Reason Comments Other Encounter Details Date Type Department Care Team Description 10/05/2012 Telephone Dermatology at [facility] Rigoberto Garcia III, [address] [place] [address] [facility] [phone] TEJA MARIE-DERMAT [place] [id number] (Wo rk) Social History Tobacco Use Types [...] Zulma Dolan MD [facility] [place], [place] [address] (Wo rk) 05/28/2022 Laboratory Appointment Lab 05/28/2022 Office Visit Cardiology Zulma Dolan MD [facility] [place] [address] Liz Poole PA [facility] [place] [place] [address] 06/10/2022 Office Visit Dermatology Laura Scherer MD [facility] DR TEJA MARIE-DERMAT [place], [place] [address] (Wo rk) documented as of this encounter Visit Diagnoses Not on filedocumented in this encounter Care Teams Stone Sandblaster Relationship Specialty Start Date End Date Unknown PCP - General 10/04/12 01/24/13 None documented as of this encounter
--- OUTSIDE RECORDS SUMMARY | 2022-05-11 08:53 | XMS_ITS | Encounter Summary ---
:1945 Author Organization [facility] [place] [address] Care Team Providers Name Role Phone Brody Berrios MD Primary Care Provider Reason for Visit Reason Comments Annual Exam Encounter Details Date Type Department Care Team Description 09/22/2011 Follow-Up Dermatology Arik Tipton Psoriasis (Primary Dx); [facility] MD Jorge Personal history of other malignant neop lasm of skin Drive [place] [id number] DERMATOLOGY DEPT . 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 His only complaints tail bone and scalp [...] Arik Tipton MD Section of Dermatology [facility] documented in this encounter Plan of Treatment Upcoming Encounters Date Type Specialty Care Team Description 05/28/2022 Appointment Cardiology Zulma Dolan MD [facility] [address] [place], [place] [address] (Wo rk) 05/28/2022 Laboratory Appointment Lab 05/28/2022 Office Visit Cardiology Zulma Dolan MD [facility] [place] [address] Liz Poole PA [facility] [place] [address] 06/10/2022 Office Visit Dermatology Laura Scherer MD [facility] DR [address]-DERMAT [place], [place] 0375 (Wo rk) documented as of this encounter Visit Diagnoses Diagnosis Psoriasis - Primary Other psoriasis Personal history of other malignant neop lasm of skin documented in this encounter Care Teams Production Operations Manager Relationship Specialty Start Date End Date Brody Berrios MD PCP - General 09/22/11 10/03/[address] [place] [address] documented as of this encounter
--- OUTSIDE RECORDS SUMMARY | 2022-05-11 08:53 | XMS_ITS | Encounter Summary ---
:1945 Author Organization [facility] [place] [address] Care Team Providers Name Role Phone Angela Holliday APRN Primary Care Provider Encounter Details Date Type Department Care Team Description 03/15/2013 Telephone General Surgery at [facility] Maddison Key, [place] [address] Social History Tobacco Use Types Packs/Day [...] Dolan MD [facility] [place], [place] [address] (Wo rk) 05/28/2022 Laboratory Appointment Lab 05/28/2022 Office Visit Cardiology Zulma Dolan MD [facility] [place] [address] Liz Poole PA [facility] [place] [address] 06/10/2022 Office Visit Dermatology Laura Scherer MD [facility] DR TEJA GR-DERMAT [place], [place] [address] (Wo rk) documented as of this encounter Visit Diagnoses Not on filedocumented in this encounter Care Teams Console Assembler Relationship Specialty Start Date End Date Angela Holliday APRN PCP - General 01/25/13 04/15/[address] [place] [address] documented as of this encounter
--- OUTSIDE RECORDS SUMMARY | 2022-05-11 08:53 | XMS_ITS | Encounter Summary ---
:1945 Author Organization [facility] [place] [address] Care Team Providers Name Role Phone NeilSom conner STACIE Primary Care Provider Reason for Visit Reason Comments Establish Care OBST GOITER Encounter Details Date Type Department Care Team Description 01/25/2013 Office Visit General Surgery at Manny Mcknight er colloid, toxic, [facility] MD Eliseo nodular (Primary Dx) [facility] [place] GENERAL SURGERY [address] [place], [place] [address] [phone] Social History Tobacco Use Types Packs/Day Years [...] the thyroid gland were obtained using a SonoSiQualQuant Signals MicroMaxx and an HFL38/13-6 broadband linear array [...] to proceed. Will sign in through [facility]. Consent is signed. Send copy to Dr. SOM HOLLIDAY APRN and Elijah Elias MD. documented in this encounter Plan of Treatment Upcoming Encounters Date Type Specialty Care Team Description 05/28/2022 Appointment Cardiology Zulma Dolan MD [facility] Dr [place] 0375 (Wo rk) 05/28/2022 Laboratory Appointment Lab 05/28/2022 Office Visit Cardiology Zulma Dolan MD [facility] [place] [address] Liz Poole PA [facility] [place] [address] 06/10/2022 Office Visit Dermatology Laura Scherer MD [facility] DR TEJA GR-DERMAT [place], [place] 0[address] (Wo rk) documented as [...] 406 ms MUSE SYSTEM (Bezet) Calculated P [place] 52 degrees MUSE SYSTEM Calculated R [place] 0 degrees MUSE SYSTEM Calculated T [place] 40 degrees MUSE SYSTEM INTERPRETATION Normal sinus [...] documented in this encounter Care Teams Instrument Maker And Repairer Relationship Specialty Start Date End Date Som Holliday APRN PCP - General 01/25/13 04/15/[address] [place] [address] documented as of this encounter
--- OUTSIDE RECORDS SUMMARY | 2022-05-11 08:53 | XMS_ITS | Encounter Summary ---
:1945 Author Organization [facility] [place] [address] Care Team Providers Name Role Phone Angela Holliday APRN Primary Care Provider Reason for Referral Surgical (Routine) - Closed Specialty Diagnoses / Procedures Referred By Contact Refer red To Contact General Surgery Diagnoses Elijah Villagomez MD Colacchio, Thomas A, MD [address] [place] [address] [place] [address] [place] [address] Phone: Fax: Referral ID Status Reason Start Date Expiration Date Visits V isits Requested Authorized [id number] Closed Specialty 01/25/2013 07/24/2013 1 1 Service Requested Reason for Visit Reason Comments Thyroid Problem Encounter Details Date Type Department Care Team Description 01/25/2013 Office Visit Endocrinology at [facility] Elijah Fuentes Goiter (Primary Dx) [facility] [address] [place] [address] [place] [address] [phone] Social History Tobacco Use Types Packs/Day Years [...] the thyroid gland were obtained using a SonZazomaxx and an HFL38/13-6 broadband linear array transducer. [...] Zulma Dolan MD [facility] [place], [place] [address] (Wo rk) 05/28/2022 Laboratory Appointment Lab 05/28/2022 Office Visit Cardiology Zulma Dolan MD [facility] [place] [address] Liz Poole PA [facility] [place] [address] 06/10/2022 Office Visit Dermatology Laura Scherer MD [facility] [address] TEJA GR-DERMAT [place], [place] [address] (Wo rk) Scheduled Referrals Name [...] Address City/State/[place] [address] CERNER MILLENNIUM documented in this encounter Visit Diagnoses Diagnosis Goiter - Primary Goiter, unspecified documented in this encounter Care Teams Passenger Attendant Relationship Specialty Start Date End Date Angela Holliday APRN PCP - General 01/25/13 04/15/[address] [place] [address] documented as of this encounter
--- OUTSIDE RECORDS SUMMARY | 2022-05-11 08:53 | XMS_ITS | Encounter Summary ---
:1945 Author Organization [facility] [place] [address] Care Team Providers Name Role Phone Angela Holliday APRN Primary Care Provider Encounter Details Date Type Department Care Team Description 01/25/2013 Clinical [place] [address] Social History Tobacco Use Types Packs/Day [...] Zulma Dolan MD [facility] [address] [place], [place] [address] (Wo rk) 05/28/2022 Laboratory Appointment Lab 05/28/2022 Office Visit Cardiology Zulma Dolan MD [facility] [place] [address] Liz Poole PA [facility] [place] [address] 06/10/2022 Office Visit Dermatology Laura Scherer MD [facility] DR TEJA GR-DERMAT [place], [place] [address] (Wo rk) documented as of this encounter Visit Diagnoses Not on filedocumented in this encounter Care Teams Sld Educational Aide Relationship Specialty Start Date End Date Angela Holliday APRN PCP - General 01/25/13 04/15/[address] [place] [address] documented as of this encounter
--- OUTSIDE RECORDS SUMMARY | 2022-05-11 08:53 | XMS_ITS | Encounter Summary ---
:1945 Author Organization [facility] Address [facility] [place] [address] Care Team Providers Name Role Phone Unknown Primary Care Provider Unavailable Reason for Visit Reason Comments Skin Check Encounter Details Date Type Department Care Team Description 10/04/2012 Follow-Up Dermatology at Rigoberto Forman soriasis (Primary Dx); Abdelrahman HOOPER MD Neoplasm of unspecified nature of bone, soft tissue, and skin; [address] [facility] Skin lesion of chest wall; [place] [address] Seborrheic psoriasis- scalp and ingtergl uteal area [phone] [facility]-DER[facility] [place], [place] [address] (Wo rk) Social History Tobacco [...] changes: Rigoberto Albarran MD Section of Dermatology [facility] documented in this encounter Plan of Treatment Upcoming Encounters Date Type Specialty Care Team Description 05/28/2022 Appointment Cardiology Zulma Dolan MD [facility] [address] [place], [place] [address] (Wo rk) 05/28/2022 Laboratory Appointment Lab 05/28/2022 Office Visit Cardiology Zulma Dolan MD [facility] [place] [address] Liz Poole PA [facility] [place] [address] 06/10/2022 Office Visit Dermatology Laura Scherer MD [facility] [address] TEJA GR-DERMAT [place], [place] [address] (Wo rk) documented as [...] Component Value Ref Test Analysis Performed At [facility] gist Range Method Time Signature Surgical CERNER Pathology ? [facility] Report ? Provider: ?? RIGOBERTO ALBARRAN III Pt. Name: ?? DON HOANG ?A ? Acc #: ?[id number] ? Pt. ? Col Date: ?? 3 [...] [facility]/ZIP Code Phon e Number [address] [facility] Specimen to Pathology (NON-OR) (10/04/2012 9:55 AM EDT) Specimen Anatomical Collection Method Collection Time Receive d Time (Source) Location / / Volume Laterality AP Specimen 10/04/2012 9:55 AM 201 3 9:56 EDT AM EDT Narrative [facility] - 10/04/2012 9:56 AM E DT Specimen requisition ordered. ??Separate Pathology report to follow Rigoberto Albarran III, MD PATHOLOGY/CYTOLOGY ORDERABLE S Performing Organization Address City/[facility]/ZIP Code Phon e Number [address] [facility] documented in this encounter Visit Diagnoses Diagnosis Psoriasis - Primary Other psoriasis Neoplasm of unspecified nature of bone, soft tissue, and skin Skin lesion of chest wall Unspecified disorder of skin and subcuta neous tissue Seborrheic psoriasis- scalp and ingtergl uteal area Other psoriasis documented in this encounter Care Teams Sap Director Relationship Specialty Start Date End Date Unknown PCP - General 10/04/12 01/24/13 None documented as of this encounter
--- OUTSIDE RECORDS SUMMARY | 2022-05-11 08:53 | XMS_ITS | Encounter Summary ---
:1945 [place] [address] Care Team Providers Name Role Phone MiyaLokeshAngela STACIE Primary Care Provider Encounter Details Date Type Department Care Team Description 03/28/2013 Anesthesia Event Main Operating Room Meredith Calvert MD [facility] DR [place] [address] [facility] Nolvia Riojas PA [facility] PRE-[place] [address] [place] [address] Anesthesia Record Procedure Summary Procedure Name [...] MD [facility] [place], [place] [address] (Wo rk) 05/28/2022 Laboratory Appointment Lab 05/28/2022 Office Visit Cardiology Zulma Dolan MD [facility] [place] [address] Liz Poole PA [facility] [place] [address] 06/10/2022 Office Visit Dermatology Laura Scherer MD [facility] DR TEJA GR-DERMAT [place], [place] [address] (Wo rk) documented as of [...] Routine documented in this encounter Care Teams Farm Service Adviser Relationship Specialty Start Date End Date Angela Holliday APRN PCP - General 01/25/13 04/15/[address] [place] [address] documented as of this encounter
--- OUTSIDE RECORDS SUMMARY | 2022-05-11 08:56 | XMS_ITS | Encounter Summary ---
:1945 Author Organization [facility] Address [address] [place] [address] Care Team Providers Name Role Phone Lovely Vicente MD Primary Care Provider Encounter Details Date Type Department Care Team Description 01/28/2022 Lab Requisition [facility] Outr Resulting Lab, Pathology & Laboratory Provider [facility] [address] [place] [address] Social History Tobacco Use Types Packs/Day Years Used Date Never Assessed Sex Assigned at Date Recorded Not on file documented as of this encounter Plan of Treatment Not on filedocumented as of this encounter Procedures Procedure Name Priority Date/Time Associated Diagnosis Comme nts COVID-19 TEST [facility] Today 01/27/2022 14:30 LAB PCR EDT COVID-19 TESTING Routine 01/27/2022 14:30 Results for this EDT procedure are i n the results section. documented in this encounter Results COVID-19 TEST [facility] LAB PCR (01/27/2022 14:30 EDT) Specimen Swab Performing Organization Address City/State/ZIP Code Phon e Number [facility] LABORATORY [address] [place] [address] SERVICES COVID-19 TESTING (01/27/2022 14:30 EDT) COVID-19 [...] was performed using the meliton SARS-CoV-2 assay ([employer] on the Meliton 6800 System Performing Lab Meliton [address] [facility] Lab [facility] LABORATORY SERVICES Specimen Swab Performing Organization Address City/State/ZIP Code Phon e Number [facility] LABORATORY [address] [place] [address] SERVICES documented in this encounter Visit Diagnoses Not on filedocumented in this encounter Care Teams Prime Broker Relationship Specialty Start Date End Date Lovely Vicente MD PCP - General 07/13/14 documented as of this encounter
--- OUTSIDE RECORDS SUMMARY | 2022-05-11 08:56 | XMS_ITS | Encounter Summary ---
:1945 Author Organization [facility] Address [address] [place] [address] Care Team Providers Name Role Phone Lovely Vicente MD Primary Care Provider Encounter Details Date Type Department Care Team Description 02/20/2022 Lab Requisition [facility] Outr Resulting Lab, Pathology & Laboratory Provider [facility] [address] [place] [address] Social History Tobacco Use Types Packs/Day Years [...] Pathologist Sig nature PSA 2.7 <=6.5 ng/mL [facility] LABORATOR Y SERVICES Specimen Blood - Venous blood (substance) Narrative [facility] LABORATORY SERVICES - 02/20/2022 18:17 EDT NOTE: Serum PSA concentration should not be in terpreted as absolute evidence for the presence or absence of malignant disease. Assayed on Siemens ADVIA Centaur XPT usi ng chemiluminescent technology.??Values obtained by using different assay methods cannot be used interchangeably. Performing Organization Address City/State/ZIP Code Phon e Number [facility] LABORATORY [address] [place] [address] SERVICES documented in this encounter Visit Diagnoses Not on filedocumented in this encounter Care Teams Line Analyst Relationship Specialty Start Date End Date Lovely Vicente MD PCP - General 07/13/14 documented as of this encounter
--- OUTSIDE RECORDS SUMMARY | 2022-05-11 08:56 | XMS_ITS | Encounter Summary ---
:1945 Author Organization [facility] Address [address] [place] [address] Care Team Providers Name Role Phone Lovely Vicente MD Primary Care Provider Encounter Details Date Type Department Care Team Description 01/01/2020 Lab Requisition [facility] Outr Resulting Lab, Pathology & Laboratory Provider [facility] [address] [place] [address] Social History Tobacco Use Types Packs/Day Years [...] 2.1 0.0 - 6.5 ng/mL [facility] LABORA TORY SERVICES Specimen Blood - Venous blood (substance) Narrative [facility] LABORATORY SERVICES - 01/02/2020 10:40 EDT NOTE: Serum PSA concentration should not be in terpreted as absolute evidence for the presence or absence of malignant disease. Assayed on Siemens ADV[employer] Centaur XPT usi ng chemiluminescent technology.??Values obtained by using different assay methods cannot be used interchangeably. Performing Organization Address City/State/ZIP Code Phon e Number [facility] LABORATORY [address] [place] [address] SERVICES documented in this encounter Visit Diagnoses Not on filedocumented in this encounter Care Teams Healthcare Business Analyst Relationship Specialty Start Date End Date Lovely Vicente MD PCP - General 07/13/14 documented as of this encounter
--- OUTSIDE RECORDS SUMMARY | 2022-05-11 08:56 | XMS_ITS | Encounter Summary ---
:1945 Author Organization [facility] Address [address] [place] [address] Care Team Providers Name Role Phone Unavailable Primary Care Provider Unavailable Encounter Details Date Type Department Care Team Description 03/05/2014 Hospital Encounter [facility] Heather Unknown, Provider, [facility] 0 [facility] [phone] [place] [address] (Work) [phone] Social History Tobacco Use Types Packs/Day Years [...]
--- OUTSIDE RECORDS SUMMARY | 2022-05-11 08:56 | XMS_ITS | Encounter Summary ---
:1945 Author Organization [facility] Address [address] [place] [address] Care Team Providers Name Role Phone Unknown, Provider Primary Care Provider Encounter Details Date Type Department Care Team Description 03/05/2014 Results Only [facility] Eris Taylor MD Laboratory Services - [address] [place] [address] [place] [address] [phone] Social History Tobacco Use Types Packs/Day Years [...] ? DON HOANG ? Accession #: ? [id number] ? : ? 1945 (Age: 68) ??M [...] Code Phon e Number [facility]ORY [address] [place] [address] SERVICES [facility] [address] [place] [address] documented in this encounter Visit Diagnoses Not on filedocumented in this encounter Care Teams Architectural Technologist Relationship Specialty Start Date End Date Unknown, Provider, PCP - General 03/07/14 07/12/14 documented as of this encounter
--- OUTSIDE RECORDS SUMMARY | 2022-05-11 08:56 | XMS_ITS | Encounter Summary ---
:1945 Author Organization [facility] Address [address] [place] [address] Care Team Providers Name Role Phone Lovely Vicente MD Primary Care Provider Encounter Details Date Type Department Care Team Description 04/04/2021 Lab Requisition [facility] Outr Resulting Lab, Pathology & Laboratory Provider [facility] [address] [place] [address] Social History Tobacco Use Types Packs/Day Years [...] Pathologist Sig nature Salmonella PCR Negative Negative [facility] LABORATORY SERVICES Shigella/Enteroinvasive Negative Negative [facility] HN LAB CAMPYLOBACTER PCR Negative Negative [facility] LABOR[facility]ORY SERVICES Shiga Toxin PCR Negative Negative [facility] LABORATORY SERVICES Specimen Feces - Specimen from rectum (specimen) Performing Organization Address City/State/ZIP Code Phon e Number [facility] LABORATORY [address] [place] [address] SERVICES documented in this encounter Visit Diagnoses Not on filedocumented in this encounter Care Teams Vice President Of Software Development Relationship Specialty Start Date End Date Lovely Vicente MD PCP - General 07/13/14 documented as of this encounter
--- OUTSIDE RECORDS SUMMARY | 2022-05-11 08:56 | XMS_ITS | Encounter Summary ---
:1945 Author Organization [facility] Address [address] [place] [address] Care Team Providers Name Role Phone Lovely Vicente MD Primary Care Provider Encounter Details Date Type Department Care Team Description 04/04/2021 Lab Requisition [facility] Outr Resulting Lab, Pathology & Laboratory Provider [facility] [address] [place] [address] Social History Tobacco Use Types Packs/Day Years [...] 12:15 EDT) Giardia and Cryptosporidium Cryptosporidium [facility] Cryptosporidium Antigen Neg and Antigen Neg and CENTER Giardia Antigen Neg Giardia Antigen Neg LABORATORY SERVICES Specimen Feces - Specimen from rectum (specimen) Performing Organization Address City/State/ZIP Code Phon e Number [facility] LABORATORY [address] [place] [address] SERVICES documented in this encounter Visit Diagnoses Not on filedocumented in this encounter Care Teams Blueberry Grower Relationship Specialty Start Date End Date Lovely Vicente MD PCP - General 07/13/14 documented as of this encounter
--- OUTSIDE RECORDS SUMMARY | 2022-05-11 08:56 | XMS_ITS | Encounter Summary ---
:1945 Author Organization [facility] Address [address] [place] [address] Care Team Providers Name Role Phone Lovely Vicente MD Primary Care Provider Encounter Details Date Type Department Care Team Description 08/11/2019 Lab Requisition [facility] Unknown, Provider, Pathology & Laboratory [facility] 111 [facility] [place] [address] Social History Tobacco Use Types Packs/Day Years [...] (08/11/2019 14:35 EST) Giardia and Cryptosporidium Cryptosporidium [facility] Cryptosporidium Antigen Neg and Antigen Neg and CENTER Giardia Antigen Neg Giardia Antigen Neg LABORATORY SERVICES Specimen Feces - Specimen from rectum (specimen) Performing Organization Address City/State/ZIP Code Phon e Number [facility] LABORATORY [address] [place] [address] SERVICES documented in this encounter Visit Diagnoses Not on filedocumented in this encounter Care Teams Ward Assistant Relationship Specialty Start Date End Date Lovely Vicente MD PCP - General 07/13/14 documented as of this encounter
--- OUTSIDE RECORDS SUMMARY | 2022-05-11 08:56 | XMS_ITS | Encounter Summary ---
:1945 Author Organization [facility] Address [address] [place] [address] Care Team Providers Name Role Phone Unknown, Provider Primary Care Provider Encounter Details Date Type Department Care Team Description 07/11/2014 Results Only [facility] Shruthi Horowitz MD Laboratory Services - [address] [place] [address] [place] [address] 0 [facility] [place] [address] [phone] Social History Tobacco Use Types Packs/Day Years Used Date Never Assessed Sex Assigned at Date Recorded Not on file documented as of this encounter Plan of Treatment Not on filedocumented as of this encounter Procedures Procedure Name Priority Date/Time Associated Diagnosis Comme [facility] SURGICAL PATHOLOGY Routine 07/11/2014 8:55 EST Re sults for this procedure are i n the results section. documented in this encounter Results SURGICAL PATHOLOGY (07/11/2014 8:55 EST) Pathology Report: SURGICAL PATHOLOGY REPORT [facility] Reports generated via electronic interface contain sorin ginal data; LABORATORY however they are lacking the format of the original re port. SERVICES Caution should be taken when reading/interpreting unfo rmatted reports. Name: ? DON HOANG ? Accession #: ? [id number] ? : ? 1945 (Age: 69) ??M [...] 6.5 x 3.0 cm in aggreg ate). Bilingual Speech Language Pathologist sections are submitted in 1- 10 (approximately 40% of the specimen is submitted). Viry Nunez 07/12/2014 11:21 AM End of Report Specimen Performing Organization Address City/State/ZIP Code Phon e Number [facility] LABORATORY [address] [place] [address] SERVICES documented in this encounter Visit Diagnoses Not on filedocumented in this encounter Care Teams Line Construction Supervisor Relationship Specialty Start Date End Date Unknown, Provider, PCP - General 03/07/14 07/12/14 documented as of this encounter
--- OUTSIDE RECORDS SUMMARY | 2022-05-11 08:56 | XMS_ITS | Encounter Summary ---
:1945 Author Organization [facility] Address [address] [place] [address] Care Team Providers Name Role Phone Lovely Vicente MD Primary Care Provider Encounter Details Date Type Department Care Team Description 08/11/2019 Lab Requisition [facility] Unknown, Provider, Pathology & Laboratory [facility] [address] [facility] [place] [address] Social History Tobacco Use Types Packs/Day Years [...] Pathologist Sig nature Salmonella PCR Negative Negative [facility]OR[facility] SERVICES Shigella/Enteroinvasive Negative Negative [facility] R E. coli LABORATORY SERVICES HN LAB CAMPYLOBACTER PCR Negative Negative [facility] ER LABORATORY SERVICES Shiga Toxin PCR Negative Negative [facility] SERVICES Specimen Feces - Specimen from rectum (specimen) Performing Organization Address City/State/ZIP Code Phon e Number [facility] [address] [place] [address] SERVICES documented in this encounter Visit Diagnoses Not on filedocumented in this encounter Care Teams It Applications Developer Relationship Specialty Start Date End Date Lovely Vicente MD PCP - General 07/13/14 documented as of this encounter
--- OUTSIDE RECORDS SUMMARY | 2022-05-15 08:19 | XMS_ITS | Encounter Summary ---
:1945 Author Organization [facility] Address [facility] [place] [address] Care Team Providers Name Role Phone Lovely Vicente MD Primary Care Provider Reason for Visit Reason Onset Date Comments Medication Refill 03/06/2022 Metoprolol Succinate Encounter Details Date Type Department Care Team Description 03/06/2022 Refill Cardiology at [facility] Liz Poole PA Medication Refill [facility] (Id toprolol Succinate) [place] [address] Cardiology Dept [phone] [place], [place] [address] (Wo rk) Social History Tobacco [...] MD [facility] er [address] [place], [place] [address] (Wo rk) 05/28/2022 Laboratory Appointment Lab 05/28/2022 Office Visit Cardiology Zulma Dolan MD [facility] [place] [address] Liz Poole PA [facility] [place] [address] 06/10/2022 Office Visit Dermatology Laura Scherer MD [facility] ER [address] [place], [place] [address] (Wo rk) documented as of this encounter Visit Diagnoses Diagnosis Chronic systolic heart failure Cardiomyopathy, ischemic Other specified forms of chronic ischemi c heart disease documented in this encounter Care Teams Flight Instructor Relationship Specialty Start Date End Date Lovely Vicente MD PCP - General 04/16/[address] [place] [address] documented as of this encounter
--- OUTSIDE RECORDS SUMMARY | 2022-05-15 08:19 | XMS_ITS | Encounter Summary ---
:1945 [place] [address] Care Team Providers Name Role Phone Lovely Vicente MD Primary Care Provider Reason for Visit Reason Onset Date Comments Follow-up 02/26/2022 Entresto start Encounter Details Date Type Department Care Team Description 02/26/2022 Telephone Cardiology at [facility] Martah Comer, Follow-up ([facility] RN start) [place] [address] Social History Tobacco Use Types Packs/Day [...] on 03/05/22 Getting labs done at : [facility] Order e-faxed by STEPHANIE Poole on 02/24/22. /pt to call on 03/05/22 letting us know to get the BMP results from [facility]. Nursing to get results and contact pt to see how he is tolerating the Entresto. They are to call sooner with any questions/concerns. documented in this encounter Plan of Treatment Upcoming Encounters Date Type Specialty Care Team Description 05/28/2022 Appointment Cardiology Zulma Dolan MD [facility] [place], [place] [address] (Wo rk) 05/28/2022 Laboratory Appointment Lab 05/28/2022 Office Visit Cardiology Zulma Dolan MD [facility] [place] [address] [facility] [place] [address] 06/10/2022 Office Visit Dermatology Laura Scherer MD [facility] [address] [place], [place] [address] (Wo rk) documented as of this encounter Visit Diagnoses Not on filedocumented in this encounter Care Teams Revenue Research Analyst Relationship Specialty Start Date End Date Lovely Vicente MD PCP - General 04/16/[address] [place] [address] documented as of this encounter
--- OUTSIDE RECORDS SUMMARY | 2022-05-15 08:19 | XMS_ITS | Encounter Summary ---
:1945 Author Organization [facility] [place] [address] Care Team Providers Name Role Phone Lovely Vicente MD Primary Care Provider Encounter Details Date Type Department Care Team Description 03/26/2022 Office Visit Cardiology at [facility] Vitaliy Nobles MD Chronic systolic heart failure; [facility] ONE MEDICAL ASCVD (ar teriosclerotic cardiovascular disease); [facility] Cardiomyopathy, ischemic [place], [place] CARDIOLOGY [address] [place] [address] [phone] Social History Tobacco Use Types Packs/Day Years [...] included. [facility] [place] [address] CARDIOLOGY OUTPATIENT CLINIC VISIT [facility] Don Mccollum Kushal 03/26/2022 Referring Providers: MD Jules Cr Joyce, MD [address] [place] [address] CHIEF COMPLAINT: I am doing well CARDIAC-RELEVANT [...] using a 2.0 x 26 mm ORION [place] TUCKER stent. This completes therevascularization of all [...] in [address] Lovely Vicente MD [address] [place] [address] HISTORY OF PRESENT ILLNESS: Don Fatima is [...] using a 2.0 x 26 mm ORION [place] TUCKER stent. This completes the revascularization of [...] 12.71) performed by Yonathan Smith MD at [facility] OR ??? PRO CABG, ARTERIAL, SINGLE N/A 07/07/2017 @CABG, USING ARTERIAL GRAFT;SINGLE ARTERIAL GRAFT (WRVU 33.75) performed by Yuan Retana MD at [facility] OR ??? PRO CABG, ARTERY-VEIN, TWO N/A 07/07/2017 @CABG, TWO VENOUS GRAFTS & ARTERIAL GRAFT (WRVU 7.93) performed by Yuan Retana MD at [facility] OR ??? PRO COLONOSCOPY, REMV LESN, SNARE 01/16/2014 COLONOSCOPY, POLYPECTOMY, REMOVAL LESION BY SNARE performed by Nohemi Jaimes MD at [facility] ENDOSCOPY ??? PRO DRESSING CHANGE UNDER ANESTHESIA Right 08/11/2017 (MSURG) DRESSING CHANGE (FOR OTHER THAN IVAN) UNDER ANES. (WRVU 0.86) performed by Lamar Smtih MD at [facility] MAIN OR ??? PRO ENDOSCOPY W/VIDEO-ASST VEIN HARVEST, CABG Right 07/07/2017 ENDOSCOPIC HARVEST VEIN(S) FOR CABG (WRVU 0.31) performed by Yuan Retana MD at [facility] MAIN OR ??? PRO PERC TRLUML CORONARY STENT W/ANGIO ONE ART/BRANCH N/A 01/30/2022 STENT PLACEMENT-SINGLE MAJOR CORONARY ARTERY OR BRANCH performed by Vitaliy Nobles MD at [facility] CATH LABS ??? PRO THYROIDECTOMY 03/28/2013 THYROIDECTOMY, TOTAL OR COMPLETE performed by Manny Mcknight MD at [facility] MAIN OR SOCIAL HISTORY: reports [...] using a 2.0 x 26 mm ORION [place] TUCKER stent. This completes the revascularization of [...] Sincerely, Dr. Vitaliy Nobles MD [facility] [place] Interventional Cardiology 03/26/2022 CC: Lovely Vicente MD [...] per DC Summary - Admitted to [facility] on 12/08/21, transferred from [facility], respiratory distress with hypoxia 86% on [...] Antiplatelet (DAPT) Recommendations above ? TTE from [facility] 12/08/21 ?? 07/28/2019 Echocardiogram: SUMMARY: 1. [...] regurgitation present. 07/07/2019 - 07/21/2019 Zio Patch Whipped Topping Finisher The patient had a minimum heart rate [...] 12.5 mg daily 6. Post-op atrial fibrillation [id number] (CHF, HTN, DM, vascular disease, thromboembolism) Eliquis 7. PAD 08/06/2017: Right 1st, 2nd, 3rd toe amputation 08/11/2017: Left??femoral arterial access, RLE??angiogram, Balloon angioplasty of R PT 10/25/2017: right popliteal-pedal bypass at [facility] 8. Hypothyrodism S/p thyroidectomy for goiter Levothyroxine ?? Plan: 3 months in clinic with labs and TTE Liz Poole PA-C 03/26/2022 documented in this encounter Plan of Treatment Upcoming Encounters Date Type Specialty Care Team Description 05/28/2022 Appointment Cardiology Zulma Dolan MD [facility] [place] [address] (Wo rk) 05/28/2022 Laboratory Appointment Lab 05/28/2022 Office Visit Cardiology Zulma Dolan MD [facility] [place] [address] Liz Poole PA [facility] [place] [address] 06/10/2022 Office Visit Dermatology Laura Scherer MD [facility] DR [address] [place], [place] [address] (Wo rk) documented as of this encounter Visit Diagnoses Diagnosis Chronic systolic heart failure ASCVD (arteriosclerotic cardiovascular d isease) Unspecified cardiovascular disease Cardiomyopathy, ischemic Other specified forms of chronic ischemi c heart disease documented in this encounter Care Teams Assembler Tubing Relationship Specialty Start Date End Date Lovely Vicente MD PCP - General 04/16/[address] [place] [address] documented as of this encounter
--- OUTSIDE RECORDS SUMMARY | 2022-05-15 08:19 | XMS_ITS | Encounter Summary ---
:1945 Author Organization [facility] [place] [address] Care Team Providers Name Role Phone Lovely Vicente MD Primary Care Provider Encounter Details Date Type Department Care Team Description 02/24/2022 Notes Only Care [place] [address] Social History Tobacco Use Types Packs/Day [...] Dolan MD [facility] [address] [place], [place] [address] (Wo rk) 05/28/2022 Laboratory Appointment Lab 05/28/2022 Office Visit Cardiology Zulma Dolan MD [facility] [place] [address] Liz Poole PA [facility] [place] [address] 06/10/2022 Office Visit Dermatology Laura Scherer MD [facility] ER DR [address] [place], [place] [address] (Wo rk) documented as of this encounter Visit Diagnoses Not on filedocumented in this encounter Care Teams Electrical Controls Designer Relationship Specialty Start Date End Date Lovely iVcente MD PCP - General 04/16/[address] [place] [address] documented as of this encounter
--- OUTSIDE RECORDS SUMMARY | 2022-05-15 08:19 | XMS_ITS | Encounter Summary ---
:1945 Author Organization [facility] [address] Care Team Providers Name Role Phone Lovely Vicente MD Primary Care Provider Reason for Referral Diagnostic Test (Routine) - Authorized Specialty Diagnoses / Procedures Referred By Contact Refer red To Contact Cardiology Diagnoses Chronic systolic heart failure Liz Carrera PA [facility] Non-Inv Card Lab Procedures Echocardiogram Transthoracic [facility] [place] [address] [place] [address] Fax: Referral ID Status Reason Start Expiration Visits Visits Date Date Requested Authorized [id number] Authorized Specialty 02/19/2022 02/19/2023 1 1 Service Requested Encounter Details Date Type Department Care Team Description 02/19/2022 Office Visit Cardiology at [facility] Liz Carrera, Chronic systolic heart [facility] [place] [address] Cardiology Dept [phone] [place], [place] [address] Social History Tobacco Use Types [...] per DC Summary - Admitted to [facility] on 12/08[facility], transferred from [facility], respiratory distress with hypoxia 86% [...] mg PO daily in place of Lasix. [place] is new for him and he will [...] PCP. He started [facility] in [facility]. Monitored vitals/trends at home: Weight 191-194 [...] Antiplatelet (DAPT) Recommendations above ? TTE from [facility] 12/08/21 ?? 07/28/2019 Echocardiogram: SUMMARY: [...] regurgitation present. 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 Post-op atrial fibrillation [id number] 7 (CHF, HTN, DM, vascular disease, thromboembolism) [...] Zulma Dolan MD [facility] [place], [place] [address] (Wo rk) 05/28/2022 Laboratory Appointment Lab 05/28/2022 Office Visit Cardiology Zulma Dolan MD [facility] [place] [address] Liz Carrera PA [facility] [place] [address] 06/10/2022 Office Visit Dermatology Laura Scherer MD [facility] [address] [place], [place] [address] (Wo rk) Scheduled Orders Name Type Priority Associated Order Schedule Diagnoses Echocardiogram Echocardiography Routine Chronic systolic Expec vlad: Transthoracic heart failure 05/22/2022 (Approximate), Expires: 11/21/2022 documented as of this encounter Results (ABNORMAL) Basic Metabolic Panel (non-fasting) (02/19/2022 8:06 AM EDT) P athologist Signature Glucose Lvl 139 65 - 199 [facility] mg/dL [facility] Comment: Diabetes: [...] City/State/ZIP Code Phon e Number [place] [phone] LAB[address]ORY [address] (ABNORMAL) pro-Brain Natriuretic Peptide [...] Organization Address City/State/[place] [address] documented in this encounter Visit Diagnoses Diagnosis Chronic systolic heart failure documented in this encounter Care Teams Cinder Crane Operator Relationship Specialty Start Date End Date Lovely Vicente MD PCP - General 04/16/[address] [place] [address] documented as of this encounter
--- OUTSIDE RECORDS SUMMARY | 2022-05-15 08:19 | XMS_ITS | Clinical Summary ---
:1945 Author Organization [facility] [place] [address] Care Team Providers Name Role Phone Lovely [...] Cardiology Zulma Dolan MD [facility] [place], [place] [address] (Wo rk) 05/28/2022 Laboratory Appointment Lab 05/28/2022 Office Visit Cardiology Zulma Dolan [place] [address] Liz Poole PA [facility] [place] [address] 06/10/2022 Office Visit Dermatology Laura Scherer MD [facility] DR [address] [place], [place] [address] (Wo rk) Health Maintenance Due Date Last Done Comments Covid-19 Vaccine (#1) 1945 Pneumoccocal Vaccine: 65+ (1 - PCV) 1952 Hepatitis C Screening 1964 Tdap adult 1965 Tetanus vaccine 1965 Zoster vaccine (1 of 2) 1996 Colonoscopy 01/16/2019 01/16/2014, 01/16/2014 Influenza (Flu) vaccine (1 of 1 - 03/26/2022 03/29/2013, Influenza standard series) Medical Devices Implanted Type Area Memory Care Program Director Device Shelf Model / Identifier Expiration Serial / Date Lot Cable,Cut,Edg,Blnt,Ss,3tpr ([id number]) - [id number] IMPLANTS Midline: [employer] 04/01/2022 [id number] / Implanted: Qty: 4 on 07/07/2017 by [facility]ana [facility] [employer] - / [id number] Procedures Procedure Name Priority Date/Time Associated Comments [...] Signature WBC 7.2 4.0 - 9.5 [facility] x10(3)/[facility] LABORATORY RBC 4.41 (L) 4.58 - [facility] RYAN 5.54 [facility] x10(6)/[facility] LABORATORY Hemoglobin 13.2 (L) 13.7 - [facility] RYAN 16.5 g/dL [facility] Hematocrit 40.9 40.5 - [facility] RYAN 48.5 % [facility] MCV 92.7 82.9 - [facility] RYAN 93.1 [facility] LABORATORY MCH 29.9 27.5 - [place] RYAN 32.1 pg [facility] LABOR[facility]ORY MCHC 32.3 32.0 - [facility] RYAN 35.7 g/dL [facility] LABOR[facility] Platelets 191 145 - 357 [facility] x10(3)/[facility] LABORATORY RDWSD 53.6 (H) 36.0 - [facility] RYAN 45.0 [facility] LABORATORY RDWCV 15.6 (H) 11.4 - [facility] RYAN 13.8 % [facility] LABORATORY MPV 8.7 7.6 - 12.9 [facility] [employer] [facility] LABORATORY nRBC % Auto 0.0 % [facility] LABORATORY nRBC Abs Auto 0.000 0.000 - [facility] RYAN 0.000 [facility] x10(3)/[facility] LABORATORY Specimen Anatomical Collection Method Collection Time Receive d Time (Source) Location / / Volume Laterality Blood 02/19/2022 8:06 AM 8:09 EDT AM EDT Resulting Agency Comment Spec In Lab Liz BROWN HEMATOLOGY ORDERABLES Performing Organization Address City/State/ZIP Code Phon e Number [place] [phone]OSPITAL LAB[address]ATORY [address] (ABNORMAL) Differential, Automated (02/19/2022 8:06 AM EDT) [facility] gist Method Time Signature Neutrophils % 76.0 % [facility] LABORATORY Neutr Abs (ANC) 5.49 1.70 - [facility] 6.10 [facility] x10(3)/[facility] LABORATORY Lymphocytes % 10.8 % [facility] LABORATORY Lymphocytes Abs 0.8 (L) 0.9 - 3.2 [facility] x10(3)/[facility] LABORATORY Monocytes % 10.2 % [facility] LABORATORY Monocyte Abs 0.7 0.3 - 0.9 [facility] x10(3)/[facility] LABORATORY Eosinophils % 1.2 % [facility] LABORATORY Eosinophils Abs 0.1 0.0 - 0.4 [facility] x10(3)/[facility] LABORATORY Basophils % 0.8 % [facility] LABORATORY Basophils Abs 0.1 0.0 - 0.1 [facility] x10(3)/[facility] LABORATORY [...] Address City/State/[place] [address] (ABNORMAL) pro-Brain Natriuretic Peptide [...] Address City/State/[place] [address] from Last 3 Months Insurance Payer Benefit Plan / Subscriber ID Effective Phone Address T ype Group Dates MEDICARE MEDICARE PART [id number] 2011-Prese [phone] [place] [id number] [employer] [place] [place] [id number] 2018-Prese [phone] [address] [place] [address] [place] [address] Advance Directives Documents on File Type Date Recorded 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
--- OUTSIDE RECORDS SUMMARY | 2022-05-15 08:19 | XMS_ITS | Encounter Summary ---
:1945 Author Organization [facility] [place] [address] Care Team Providers Name Role Phone Lovely Vicente MD Primary Care Provider Reason for Visit Reason Onset Date Comments Follow-up 02/23/2022 Medication adjustmen t and new med Encounter Details Date Type Department Care Team Description 02/23/2022 Telephone Cardiology at [facility] Martha Comer, Follow-up ([facility] RN adjustbrandon t and new med) [place] [address] Social History Tobacco Use Types Packs/Day [...] order for BMP and sent to [facility]. will call [facility] to make an appointment for next Wednesday03/04/22. [...] tablet) daily. She will correct his pill planner chief to the new dose. Will need to check with STEPHANIE Poole about repeat BMP to recheck K+ level. If yes he will get the test done at [facility]. They are aware that he will need to make an appt at [facility] to get the test done. Entresto: states [...] if he qualifies for assistance from the [employer]. She is thankful for the assistance, as he is taking insulin that is very expensive too. Instructed to call this telegraphic typewriter installer, if he does qualify for assistance from [employer] and that he has gotten the medication [...] Cardiology Zulma Dolan MD [facility] [place], [place] [address] (Wo rk) 05/28/2022 Laboratory Appointment Lab 05/28/2022 Office Visit Cardiology Zulma Dolan MD [facility] [place] [address] Liz Poole PA [facility] [place] [address] 06/10/2022 Office Visit Dermatology Laura Scherer MD [facility] [address] [place], [place] [address] (Wo rk) documented as of this encounter Visit Diagnoses Not on filedocumented in this encounter Care Teams Wholesale Parts Salesperson Relationship Specialty Start Date End Date Lovely Vicente MD PCP - General 04/16/[address] [place] [address] documented as of this encounter
--- OUTSIDE RECORDS SUMMARY | 2022-05-15 08:19 | XMS_ITS | Encounter Summary ---
:1945 Author Organization [facility] Address [address] [facility] [address] [place] [address] Care Team Providers Name Role Phone Lovely Vicente MD Primary Care Provider Reason for Visit Reason Onset Date Comments Medication Refill 04/09/2022 Jardiance Encounter Details Date Type Department Care Team Description 04/09/2022 Refill Cardiology at [facility] [place] Liz Poole PA Medication Refill [facility] (Ja rdiance) [place] [address] Cardiology Dept [phone] [place], [place] [address] (Wo rk) Social History Tobacco [...] [facility] er [address] [place] [address] (Wo rk) 05/28/2022 Laboratory Appointment Lab 05/28/2022 Office Visit Cardiology Zulma Dolan MD [facility] [place] [address] Liz Poole PA [facility] [place] [address] 06/10/2022 Office Visit Dermatology Laura Scherer MD [facility] ER DR [address] [place], [place] [address] (Wo rk) documented as of this encounter Visit Diagnoses Diagnosis Chronic systolic heart failure documented in this encounter Care Teams Chiropractic Assistant Relationship Specialty Start Date End Date Lovely Vicente MD PCP - General 04/16/[address] [place] [address] documented as of this encounter
--- OUTSIDE RECORDS SUMMARY | 2022-05-15 08:19 | XMS_ITS | Encounter Summary ---
:1945 Author Organization [facility] [place] [address] Care Team Providers Name Role Phone Lovely Vicente MD Primary Care Provider Encounter Details Date Type Department Care Team Description 02/24/2022 Orders Only Cardiology [place] [facility] [place] Poole, Chronic systolic heart [facility] [place] [address] Cardiology Dept [place], [place] [address] Social History Tobacco Use Types [...] MD [facility] er [address] [place], [place] [address] (Wo rk) 05/28/2022 Laboratory Appointment Lab 05/28/2022 Office Visit Cardiology Zulma Dolan MD [facility] [place] [address] Liz Poole PA [facility] [place] [address] 06/10/2022 Office Visit Dermatology Laura Scherer MD [facility] ER DR [address] [place], [place] [address] (Wo rk) documented as of this encounter Visit Diagnoses Diagnosis Chronic systolic heart failure documented in this encounter Care Teams Patient Assistant Relationship Specialty Start Date End Date Lovely Vicente MD PCP - General 04/16/[address] [place] [address] documented as of this encounter
--- OUTSIDE RECORDS SUMMARY | 2022-05-15 08:19 | XMS_ITS | Encounter Summary ---
:1945 Author Organization [facility] [place] [address] Care Team Providers Name Role Phone Lovely Vicente MD Primary Care Provider Encounter Details Date Type Department Care Team Description 02/19/2022 Laboratory Appointment Lab 3L [facility] [place] [id number] Social History Tobacco Use Types Packs/Day Years [...] Dolan MD [facility] [place], [place] [address] (Wo rk) 05/28/2022 Laboratory Appointment Lab 05/28/2022 Office Visit Cardiology Zulma Dolan MD [facility] [place] [address] Liz Poole PA [facility] [place] [address] 06/10/2022 Office Visit Dermatology Laura Scherer MD [facility] [address] [place] [address] (Wo rk) documented as of this encounter [...] (ABNORMAL) Differential, Automated (02/19/2022 8:06 AM EDT) [facility] gist Method Time Signature Neutrophils % 76.0 % [facility] LABORATORY Neutr Abs (ANC) 5.49 1.70 - [facility] 6.10 [facility] x10(3)/[facility] LABORATORY Lymphocytes % 10.8 % [facility] Lymphocytes Abs 0.8 (L) 0.9 - 3.2 [facility] x10(3)/[facility] LABORATORY Monocytes % 10.2 % [facility] Monocyte Abs 0.7 0.3 - 0.9 [facility] x10(3)/[facility] LABORATORY Eosinophils % 1.2 % [facility] Eosinophils Abs 0.1 0.0 - 0.4 [facility] x10(3)/[facility] LABORATORY Basophils % 0.8 % [facility]OR[facility] Basophils Abs 0.1 0.0 - 0.1 [facility] x10(3)/[facility] LABORATORY Immature Gran % 1.00 % [...] City/State/[place] [address] (ABNORMAL) Hemogram (02/19/2022 8:06 AM EDT) Analysis Performed At Patho logist Time Signature WBC 7.2 4.0 - 9.5 [facility] x10(3)/[facility] LABORATORY RBC 4.41 (L) 4.58 - [facility] 5.54 [facility] x10(6)/[facility] LABORATORY Hemoglobin 13.2 (L) 13.7 - [facility] 16.5 g/dL [facility] LABORATORY Hematocrit 40.9 40.5 - [facility] 48.5 % [facility] LABORATORY MCV 92.7 82.9 - [facility] 93.1 [facility] LABORATORY MCH 29.9 27.5 - [facility] 32.1 pg [facility] LABORATORY MCHC 32.3 32.0 - [facility] 35.7 g/dL [facility] LABORATORY Platelets 191 145 - 357 [facility] x10(3)/[facility] LABORATORY RDWSD 53.6 (H) 36.0 - [facility] 45.0 [facility] LABORATORY RDWCV 15.6 (H) 11.4 - [facility] 13.8 % [facility] LABORATORY MPV 8.7 7.6 - 12.9 [facility] LABORATORY nRBC % Auto 0.0 % [facility] LABORATORY nRBC Abs Auto 0.000 0.000 - [facility] 0.000 [facility] x10(3)/[facility] LABORATORY Specimen Anatomical Collection Method Collection Time Receive d Time (Source) Location / / Volume Laterality Blood 02/19/2022 8:06 AM 2 8:09 EDT AM EDT Resulting Agency Comment Spec In Lab Liz BROWN HEMATOLOGY ORDERABLES Performing Organization Address City/[facility]/[place] [address] (ABNORMAL) pro-Brain Natriuretic Peptide [...] Organization Address City/State/[place] [address] (ABNORMAL) Basic Metabolic Panel (non-fasting) (02/19/2022 8:06 AM EDT) P athologist Signature Glucose Lvl 139 65 - 199 [facility] mg/dL [facility] [...] City/State/[place] [address] documented in this encounter Visit Diagnoses Diagnosis Chronic systolic heart failure documented in this encounter Care Teams Digital Marketing Manager Relationship Specialty Start Date End Date Lovely Vicente MD PCP - General 04/16/[address] [place] [address] documented as of this encounter
--- OUTSIDE RECORDS SUMMARY | 2022-05-15 08:19 | XMS_ITS | Encounter Summary ---
:1945 Author Organization [facility] [place] [address] Care Team Providers Name Role Phone Lovely Vicente MD Primary Care Provider Reason for Visit Reason Onset Date Comments Medication Refill 03/11/2022 Encounter Details Date Type Department Care Team Description 03/06/2022 Refill [place] [facility] [place] Poole [place] Medication Refill [facility] Jorge mcnamara [facility] [place] [address] Cardiology Dept [phone] [place], [place] [address] (Wo rk) Social History Tobacco [...] Zulma Dolan MD [facility] [place], [place] [address] (Wo rk) 05/28/2022 Laboratory Appointment Lab 05/28/2022 Office Visit Cardiology Zulma Dolan MD [facility] [place] [address] Liz Poole PA [facility] [place] [address] 06/10/2022 Office Visit Dermatology Laura Scherer MD [facility] ER DR [address] [place], [place] [address] (Wo rk) documented as of this encounter Visit Diagnoses Not on filedocumented in this encounter Care Teams Student Services Representative Relationship Specialty Start Date End Date Lovely Vicente MD PCP - General 04/16/[address] [place] [address] documented as of this encounter
--- OUTSIDE RECORDS SUMMARY | 2022-05-15 08:19 | XMS_ITS | Encounter Summary ---
:1945 Author Organization [facility] Address [facility] [place] [address] Care Team Providers Name Role Phone Lovely Vicente MD Primary Care Provider Reason for Visit Reason Comments Prior Authorization Entresto 24-26mg tablets Encounter Details Date Type Department Care Team Description 02/20/2022 Specialty Pharmacy [place] [facility] [place] Lamberto Smith Prior Authorization [facility] J (Entresto 24-26mg Drive tablets) [place] [phone] Social History Tobacco Use Types Packs/Day Years [...] Don Fatima Patient : 1945 Patient Address: [address] [place] [address] [place] [address] (home) Medication Name: ENTRESTO 24 MG-26 MG TABLET Medication ID: [id number] Patient Location[place] [facility] 4A Patient Location Comment: Medication Strength Frequency Requested: Entresto 24-26mg tablets / One tablet twice daily Qty/Day Supply: New Start: New to Therapy Diagnosis & ICD-10 Code: Chronic systolic heart failure, I50.22 Subscriber Insurance: [facility] Subscriber Insurance Comment: Fax: Physician: LIZ CARRERA Physician Comment : PA Status: NO PA REQUIRED Insurance mandated Pharmacy: Unknown Fillable at [facility]: Yes Insurance requirements/notes: None Copay: $119.01 (goes to coverage gap/odalys monteiro) Copay assistance: [employer] Copay assistance comment: If cost isn't affordable, then we'll suggest enrollment in the currently open [facility] Heart Failure zoila, which provides up to $1000 in copay assistance. If zoila closes, or doesn't work out, then the patient can attempt enrollment in the tree and shrub technician assistance program, the [employer] Patient [employer] (NPAF). At which point we'd refer to [facility] for assistance with enrollment. Pharmacy staff [...] Zulma Dolan MD [facility] [address] [place], [place] [address] (Wo rk) 05/28/2022 Laboratory Appointment Lab 05/28/2022 Office Visit Cardiology Zulma Dolan MD [facility] [place] [address] Liz Carrera PA [facility] [place] [address] 06/10/2022 Office Visit Dermatology Laura Scherer MD [facility] ER DR [address] [place], [place] [address] (Wo rk) documented as of this encounter Visit Diagnoses Not on filedocumented in this encounter Care Teams Consulting Services Manager Relationship Specialty Start Date End Date Lovely Vicente MD PCP - General 04/16/[address] [place] [address] documented as of this encounter
--- OUTSIDE RECORDS SUMMARY | 2022-05-15 08:19 | XMS_ITS | Encounter Summary ---
:1945 Author Organization [facility] [place] [address] Care Team Providers Name Role Phone Lovely Vicente MD Primary Care Provider Reason for Visit Reason Comments Medication Refill Encounter Details Date Type Department Care Team Description 04/07/2022 Refill Cardiology [place] [facility] Janneth Padilla PA Medication Refill [facility] [place] [address] CARDIOLOGY DEPT. [phone] [place], [place] [address] (Wo rk) Social History [...] [facility] er [place], [place] [address] (Wo rk) 05/28/2022 Laboratory Appointment Lab 05/28/2022 Office Visit Cardiology Zulma Dolan MD [facility] [place] [address] Liz Poole PA [facility] [place] [address] 06/10/2022 Office Visit Dermatology Laura Scherer MD [facility] DR [address] [place], [place] [address] (Wo rk) documented as of this encounter Visit Diagnoses Not on filedocumented in this encounter Care Teams Site Leasing Agent Relationship Specialty Start Date End Date Lovely Vicente MD PCP - General 04/16/[address] [place] [address] [address] [place] [address] documented as of this encounter
--- OUTSIDE RECORDS SUMMARY | 2022-05-15 08:20 | XMS_ITS | Encounter Summary ---
:1945 Author Organization [facility] Address [facility] [place] [address] Care Team Providers Name Role Phone Lovely Vicente MD Primary Care Provider Reason for Visit Auth/Cert Specialty Diagnoses / Procedures Referred By Contact Refer red To Contact Diagnoses ASCVD (arteriosclerotic cardiovascular disease) [I25.10] Vitaliy Nobles MD [facility] Procedures PRO PERC TRLUML CORONARY STENT W/ANGIO ONE ART/BRANCH CARDIAC CATHETERIZATION STENT PLACEMENT-SINGLE MAJOR CORONARY ARTERY OR BRANCH [facility] [place] [address] Referral ID Status Reason Start Date Expiration Date Visits Requ ested Visits Authorized [id number] 1 1 Encounter Details Date Type Department Care Team Description 01/30/2022 Surgery Cement Handler Asa Coulter MD CARDIAC CATHETERIZATION Formerly [facility] [place] [address] [place] [address] [phone] (Wo rk) Social History Tobacco Use Types [...] and Clopidogrel. Please follow up with your explosive ordnance specialist in the next 4-6 weeks. We have made a referral to cardiac rehab. Please see the attached instructions regarding care to your right wrist access site. AttachmentsThe following attachments cannot be sent through Care Everywhere. Coronary Angiogram: Post-op (Gabonese)documented in this encounter Medications at Time of [...] J, RN - 01/30/2022 4:54 PM EDT [facility] Short Stay Unit Discharge Note [...] recent PCI presenting for staged PCI to [facility]. The pt states he has [...] recent PCI presenting for staged PCI to [facility]. The indications, expected benefits, and [...] [facility] [place] [address] CORONARY ANGIOGRAM AND PERCUTANEOUS CORONARY INTERVENTION REPORT Patient: Don Fatima : 1945 MR number: [id number] Date of Service: 01/30/2022 Olap Developer: Vitaliy Nobles MD Fellow: KEYON Elizabeth INDICATION: [...] a long 2.0 x 26 mm HARDEEP Rigby TUCKER stent and positioned it at the [...] using a 2.0 x 26 mm HARDEEP Rigby TUCKER stent. This completes the revascularization ofall [...] [facility] [place] [address] (Wo rk) 05/28/2022 Laboratory Appointment Lab 05/28/2022 Office Visit Zulma Garrison MD [facility] [place] [address] Liz Poole PA [facility] [place] [address] 06/10/2022 Office Visit Dermatology Laura Scherer MD [facility] ER [address]-DERMAT [facility] [place] [address] (Wo rk) Scheduled Orders Name [...] P athologist Signature Neutrophils % 71.8 % [facility] Neutr Abs (ANC) 3.96 1.70 - [facility] 6.10 [facility] x10(3)/[facility] LABORATORY Lymphocytes % 16.3 % [facility] Lymphocytes Abs 0.9 0.9 - 3.2 [facility] x10(3)/[facility] LABORATORY Monocytes % 10.0 % [facility] Monocyte Abs 0.6 0.3 - 0.9 [facility] x10(3)/[facility] LABORATORY Eosinophils % 0.5 % [facility] Eosinophils Abs 0.0 0.0 - 0.4 [facility] x10(3)/[facility] LABORATORY Basophils % 0.5 % [facility] Basophils Abs 0.0 0.0 - 0.1 [facility] x10(3)/[facility] LABORATORY Immature [...] City/State/[place] [address] (ABNORMAL) Hemogram (01/30/2022 2:12 PM EDT) Analysis Performed At Patho logist Time Signature WBC 5.5 4.0 - 9.5 [facility] x10(3)/[facility] LABORATORY RBC 4.30 (L) 4.58 - [facility] 5.54 [facility] x10(6)/[facility] LABORATORY Hemoglobin 12.7 (L) 13.7 - [place] 16.5 g/dL [facility]AT[facility] Hematocrit 39.4 (L) 40.5 - [place] 48.5 % [facility] LABORATORY MCV 91.6 82.9 - [place] 93.1 [facility] LABORATORY MCH 29.5 27.5 - [place] 32.1 pg [facility] MCHC 32.2 32.0 - [place] 35.7 g/dL [facility] Platelets 172 145 - 357 [facility] x10(3)/[facility] LABORATORY RDWSD 54.5 (H) 36.0 - [place] 45.0 [facility] LABORATORY RDWCV 16.4 (H) 11.4 - [place] 13.8 % [facility] MPV 9.2 7.6 - 12.9 [place] [facility] LABORATORY nRBC % Auto 0.0 % [facility] nRBC Abs Auto 0.000 0.000 - [place] 0.000 [facility] x10(3)/[facility] LABORATORY Specimen Anatomical Collection Method Collection Time Receive d Time (Source) Location / / Volume Laterality Blood 01/30/2022 2:12 PM 2 2:37 EDT PM EDT Resulting Agency Comment Spec In Lab Eddi Elizabeth Jr., MD HEMATOLOGY ORDERABLES Performing Organization Address City/State/[place] [address] (ABNORMAL) Basic Metabolic Panel (non-fasting) (01/30/2022 2:12 PM EDT) athologist Signature Glucose Lvl 163 65 - 199 [facility] mg[facility]dL [facility] Comment: Diabetes: [...] City/State/[place] [address] POCT Glucose (01/30/2022 1:41 PM EDT) athologist Signature POC Glucose 148 65 - 199 [facility] mg/dL [facility]ORY Comment: [...] City/[facility]/ZIP Code Phon e Number [address] POCT Glucose (01/30/2022 10:48 AM EDT) P athologist Signature POC Glucose 193 65 - 199 [facility] mg/dL [facility] Comment: Supplemental ranges: <140 mg/dL before meals <180 mg/dL all other times of the day Specimen Anatomical Collection Method Collection Time Receive d Time (Source) Location / / Volume Laterality Blood 01/30/2022 10:48 01/30/2022 AM EDT 10:48 AM EDT Vitaliy Nobles MD POINT OF CARE TEST ORDERABLE S Performing Organization Address [facility] [place] [address] EKG 12 Lead (01/30/2022 10:33 AM EDT) Component Value Ref Range Test Analysis Performed Pathologis t Method Time At Signature Ventricular rate 64 BPM MUSE SYSTEM Atrial Rate 64 BPM MUSE SYSTEM P-R Interval 162 ms MUSE SYSTEM QRS Duration 94 ms MUSE SYSTEM Q-T Interval 422 ms MUSE SYSTEM QTC Calculated 435 ms MUSE SYSTEM (Bezet) Calculated P [place] 41 degrees MUSE SYSTEM Calculated R [place] -27 degrees MUSE SYSTEM Calculated T [place] 104 degrees MUSE SYSTEM INTERPRETATION Normal sinus rhythm MUSE SYSTEM Anterolateral infarct (cited on or before 09-DEC-2021) Abnormal ECG When compared with ECG of 10-DEC-2021 11:17, No significant change was found Confirmed by Gary Perez ([id number]) on 01/30/2022 5:57:5 2 PM Specimen Anatomical Collection Method Collection Time Receive d Time (Source) Location / / Volume Laterality 01/30/2022 10:33 01/30/2022 5:57 AM EDT PM EDT Vitaliy Nobles MD ECG ORDERABLES Performing Organization Address City/[facility]/ZIP Code Phon e Number MUSE SYSTEM CARDIAC CATHETERIZATION (01/30/2022 10:16 AM EDT) Anatomical Region Laterality Modality Other Specimen (Source) Anatomical Location Collection Method / Collectio n Time Received Time / Laterality Volume Narrative 01/30/2022 2:09 PM EDT ?[facility] ? Cardiac Cathete rization/Intervention Report ? Patient Name: Don Fatima. ? Procedure Date: 01/30/2022 ? A #: [id number] ? Primary Physician: Nobles, Vitaliy P ? Case #: [id number] ? File Name: [id number] ? Catheterization Order Number: [id number] ? [facility] ? Final Report [place], [place] ? Patient Name: ? Don E. Stewa rt ? ID#: ?[id number] ? : ?1945 ? Procedure Date: ? [...] procedure was Urgent. The indication for ?the dye lab technician visit is stable kn own [...] guiding catheter an d a 3.[address] [facility] [address] ??20 Mhz ?using Manual pullback. ??Imagin [...] A premounted 2.00 x 26 mm Hardeep Rigby (TUCKER) ? was deployed wi a maximum [...] Wedelivered along 2.0 x 26 mm HARDEEP Rigby ? TUCKER stent and p ositioned it [...] dose administered prior to arrival in the dye lab technician. ?Recommended anti-platelet/anti- thrombotic regimen: ?Continue [...] ?modification of this regimen. [facility] for ?questions. ?The [...] using a 2.0 x 26 mm HARDEEP Rigby TUCKER stent. ?This completes the revasculariz ation [...] - 03/06/2022 [facility] Cardiac Catheterization/Intervention Re port Patient Name: Don Fatima Procedure Date: 01/30/2022 A #: [id number] Primary Physician: Vitaliy Nobles Case #: [id number] File Name: [id number] Catheterization Order Number: [id number] [facility] [place], [place] Patient Name: Don Fatima ID#: [...] e was Urgent. The indication for the dye lab technician visit is stable known CAD. [...] 1.5 guiding catheter and a 3.[address] [facility] [address] 20 Mhz using Manual pullback. Imaging [...] A premounted 2.00 x 26 mm Hardeep Rigby (TUCKER) was deployed with a maximum inflation [...] along 2. 0 x 26 mm HARDEEP Rigby TUCKER stent and positioned it at the [...] administered prior t o arrival in the dye lab technician. Recommended anti-platelet/anti-thrombot ic regimen: Continue [...] using a 2.0 x 26 mm HARDEEP Rigby TUCKER stent. This completes the revascularization of [...] POC Glucose 212 (H) 65 - 199 [facility] mg/dL [facility] Comment: Supplemental ranges: <140 mg/dL before meals <180 mg/dL all other times of the day Specimen Anatomical Collection Method Collection Time Receive d Time (Source) Location / / Volume Laterality Blood 01/30/2022 9:04 AM 2 9:04 EDT AM EDT Vitaliy Nobles MD POINT OF CARE TEST ORDERABLE S Performing Organization Address City/State/[place] [address] (ABNORMAL) POCT Glucose (01/30/2022 8:10 AM EDT) athologist Signature POC Glucose 224 (H) 65 - 199 [facility] mg/dL [facility] Comment: Supplemental ranges: <140 mg/dL before meals <180 mg/dL all other times of the day Specimen Anatomical Collection Method Collection Time Receive d Time (Source) Location / / Volume Laterality Blood 01/30/2022 8:10 AM 2 8:10 EDT AM EDT Vitaliy Nobles MD POINT OF CARE TEST ORDERABLE S Performing Organization Address City/State/[place] [address] documented in this encounter Visit Diagnoses Diagnosis ASCVD (arteriosclerotic cardiovascular d isease) Unspecified cardiovascular disease 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 ASHD (arteriosclerotic heart disease) Coronary atherosclerosis of unspecified type of vessel, [place] or graft ASCVD (arteriosclerotic cardiovascular d isease) Unspecified cardiovascular disease documented in this encounter Admitting Diagnoses Diagnosis CAD (coronary artery disease) Coronary atherosclerosis of unspecified type of vessel, [place] or graft documented in this encounter Administered [...] Given 02/2022 10:11 AM EDT 100 mcg (DRAFTER CIVIL ENGINEERING) ONCE PRN, Starting on Wed01/30/22 at 0927, [...] Procedure), Routine niCARdipine (Cardene) (100 mcg/mL) dilution (DRAFTER CIVIL ENGINEERING) (CANCELED ) 0927 (Given - Provider: Vitaliy [...] (Intra-Procedure) documented in this encounter Care Teams Panelbeater Relationship Specialty Start Date End Date Lovely Vicente MD PCP - General 04/16/[address] [place] [address] documented as of this encounter
--- OUTSIDE RECORDS SUMMARY | 2022-05-15 08:20 | XMS_ITS | Encounter Summary ---
:1945 Author Organization [facility] [place] [address] Care Team Providers Name Role Phone Lovely Vicente MD Primary Care Provider Encounter Details Date Type Department Care Team Description 12/12/2021 Telephone Cardiology at [facility] [place] [address] Social History Tobacco Use Types Packs/Day [...] - 12/12/2021 11:36 AM EDT RTC to [employer] regarding pharmacists questions as to whether the [...] Dolan MD [facility] [address] [place] [address] (Wo rk) 05/28/2022 Laboratory Appointment Lab 05/28/2022 Office Visit Cardiology Zulma Dolan MD [facility] [place] [address] Liz Poole PA [facility] [place] [address] 06/10/2022 Office Visit Dermatology Laura Scherer MD [facility] [address] [place], [place] 0[address] (Wo rk) documented as of this encounter Visit Diagnoses Not on filedocumented in this encounter Care Teams Motor Setter Relationship Specialty Start Date End Date Lovely Vicente MD PCP - General 04/16/[address] [place] [address] documented as of this encounter
--- OUTSIDE RECORDS SUMMARY | 2022-05-15 08:20 | XMS_ITS | Encounter Summary ---
:1945 [place] [address] Care Team Providers Name Role Phone Lovely Vicente MD Primary Care Provider Encounter Details Date Type Department Care Team Description 12/30/2021 Notes Only [facility] [place] [address] Social History Tobacco Use Types Packs/Day [...] Failure team. DX: HFrEF. Referral placed to [facility] documented in this encounter Plan of Treatment Upcoming Encounters Date Type Specialty Care Team Description 05/28/2022 Appointment Cardiology Zulma Dolan MD [facility] [address] [place], [place] [address] (Wo rk) 05/28/2022 Laboratory Appointment Lab 05/28/2022 Office Visit Cardiology Zulma Dolan MD [facility] [place] [address] Liz Poole PA [facility] [place] [address] 06/10/2022 Office Visit Dermatology Laura Scherer MD [facility] ER DR [address]-DERMAT [place], [place] [address] (Wo rk) documented as of this encounter Visit Diagnoses Not on filedocumented in this encounter Care Teams Dye Tank Tender Relationship Specialty Start Date End Date Lovely Vicente MD PCP - General 04/16/[address] [place] [address] documented as of this encounter
--- OUTSIDE RECORDS SUMMARY | 2022-05-15 08:20 | XMS_ITS | Encounter Summary ---
:1945 Author Organization [place] [address] Care Team Providers Name Role Phone Lovely Vicente MD Primary Care Provider Encounter Details Date Type Department Care Team Description 12/25/2021 Laboratory Appointment Lab 3L [facility] [place] [id number] Social History Tobacco Use Types Packs/Day Years [...] MD [facility] er [place], [place] [address] (Wo rk) 05/28/2022 Laboratory Appointment Lab 05/28/2022 Office Visit Cardiology Zulma Dolan MD [facility] [place] [address] Liz Poole PA [facility] [place] [address] 06/10/2022 Office Visit Dermatology Laura Scherer MD [facility] DR TEJA [address]DERMAT [place] [address] (Wo rk) documented as of this encounter [...] Automated (12/25/2021 7:46 AM EDT) [facility] gist Method Time Signature Neutrophils % 82.6 % [facility] Neutr Abs (ANC) 9.37 (H) 1.70 - [facility] 6.10 [facility] x10(3)/[facility] LABORATORY Lymphocytes % 7.1 % [facility] Lymphocytes Abs 0.8 (L) 0.9 - 3.2 [facility] x10(3)/[facility] LABORATORY Monocytes % 8.8 % [facility] Monocyte Abs 1.0 (H) 0.3 - 0.9 [facility] x10(3)/[facility] LABORATORY Eosinophils % 0.4 % [facility] Eosinophils Abs 0.0 0.0 - 0.4 [facility] x10(3)/[facility] LABORATORY Basophils % 0.4 % [facility] Basophils Abs 0.0 0.0 - 0.1 [facility] x10(3)/[facility] LABORATORY Immature Gran % 0.70 % ST [...] City/State/ZIP Code Phon e Number [place] [id number] [address]OS[address] LAB[address]ORY [address] (ABNORMAL) Hemogram (12/25/2021 7:46 AM EDT) Analysis Performed At Patho logist Time Signature WBC 11.4 (H) 4.0 - 9.5 [facility] x10(3)/[facility] LABORATORY RBC 4.23 (L) 4.58 - [facility] 5.54 [facility] x10(6)/[facility] LABORATORY Hemoglobin 12.3 (L) 13.7 - [facility] 16.5 g/dL [facility] Hematocrit 37.7 (L) 40.5 - [facility] RYAN 48.5 % [facility] MCV 89.1 82.9 - [facility] 93.1 [facility] LABORATORY MCH 29.1 27.5 - [place] 32.1 pg [facility] MCHC 32.6 32.0 - [facility] 35.7 g/dL [facility] Platelets 215 145 - 357 [facility] x10(3)/[facility] LABORATORY RDWSD 49.8 (H) 36.0 - [place] RYAN 45.0 [facility] RDWCV 15.2 (H) 11.4 - [facility] [place] 13.8 % [facility] MPV 9.2 7.6 - 12.9 [facility] LABORATORY nRBC % Auto 0.0 % [facility] nRBC Abs Auto 0.000 0.000 - [facility] 0.000 [facility] x10(3)/[facility] LABORATORY Specimen Anatomical Collection Method Collection Time Receive d Time (Source) Location / / Volume Laterality Blood 12/25/2021 7:46 AM 8:01 EDT AM EDT Resulting Agency Comment Spec In Lab Liz BROWN HEMATOLOGY ORDERABLES Performing Organization Address City/State/[place] [address] (ABNORMAL) Basic Metabolic Panel (non-fasting) (12/25/2021 7:46 AM EDT) P athologist Signature Glucose Lvl 272 (H) 65 - 199 [facility] mg/dL [facility] Comment: Diabetes: >=200 mg/dL plus symp toms BUN 62 (H) 10 - 20 mg/dL [facility] Creatinine 1.81 (H) 0.80 - 1.50 mg/dL [facility] [...] 15 mmol/L [facility] Calcium 9.4 8.5 - 10.5 [...] Plunkett MD CHEMISTRY ORDERABLES Performing Organization Address City/[facility]/[place] [address] (ABNORMAL) pro-Brain Natriuretic Peptide (12/25/2021 7:46 AM EDT) P athologist Signature ProBNP 1,380 (H) <=124 [facility] pg/mL [facility] Specimen Anatomical Collection Method Collection Time Receive d Time (Source) Location / / Volume Laterality Blood 12/25/2021 7:46 AM 2 8:01 EDT AM EDT Resulting Agency Comment Spec In Lab Zulma Plunkett MD CHEMISTRY ORDERABLES Performing Organization Address City/[facility]/ZIP [facility] [place] [address] documented in this encounter Visit Diagnoses Diagnosis Chronic systolic heart failure documented in this encounter Care Teams Calender Let Off Operator Relationship Specialty Start Date End Date Lovely Vicente MD PCP - General 04/16/[address] [place] [address] documented as of this encounter
--- OUTSIDE RECORDS SUMMARY | 2022-05-15 08:20 | XMS_ITS | Encounter Summary ---
:1945 Author Organization [place] [address] Care Team Providers Name Role Phone Lovely Vicente MD Primary Care Provider Reason for Visit Reason Onset Date Comments Medication Refill 12/12/2021 Torsemide Encounter Details Date Type Department Care Team Description 12/12/2021 Refill Cardiology at [facility] Janneth Padilla, Medication Refill [facility] STEPHANIE (Torsemide) [place] [address] CARDIOLOGY DEPT. [place], [place] 0[address] (Wo rk) Social History Tobacco [...] [facility] [place] [address] (Wo rk) 05/28/2022 Laboratory Appointment Lab 05/28/2022 Office Visit Cardiology Zulma Dolan MD [facility] [place] [address] Liz Poole PA [facility] [place] [address] 06/10/2022 Office Visit Dermatology Laura Scherer MD [facility] ER [address] [place], [place] [address] (Wo rk) documented as of this encounter Visit Diagnoses Diagnosis Chronic systolic heart failure documented in this encounter Care Teams Tack Cutter Relationship Specialty Start Date End Date Lovely Vicente MD PCP - General 04/16/[address] [place] [address] documented as of this encounter
--- OUTSIDE RECORDS SUMMARY | 2022-05-15 08:20 | XMS_ITS | Encounter Summary ---
:1945 Author Organization [facility] [place] [address] Care Team Providers Name Role Phone Lovely Vicente MD Primary Care Provider Encounter Details Date Type Department Care Team Description 12/24/2021 Telephone Public Health at [facility] [place] [address] Social History Tobacco Use Types Packs/Day [...] Dolan MD [facility] [place] [address] (Wo rk) 05/28/2022 Laboratory Appointment Lab 05/28/2022 Office Visit Cardiology Zulma Dolan MD [facility] [place] [address] Liz Poole PA [facility] [place] [address] 06/10/2022 Office Visit Dermatology Laura Scherer MD [facility] ER [address] [place], [place] [address] (Wo rk) documented as of this encounter Visit Diagnoses Not on filedocumented in this encounter Care Teams Pole Framer Relationship Specialty Start Date End Date Lovely Vicente MD PCP - General 04/16/[address] [place] [address] documented as of this encounter
--- OUTSIDE RECORDS SUMMARY | 2022-05-15 08:20 | XMS_ITS | Encounter Summary ---
:1945 Author Organization [facility] [place] [address] Care Team Providers Name Role Phone Lovely Vicente MD Primary Care Provider Reason for Visit Auth/Cert Specialty Diagnoses / Procedures Referred By Contact Refer red To Contact Diagnoses ASCVD (arteriosclerotic cardiovascular disease) [I25.10] Vitaliy Nobles MD [facility] Procedures PRO PERC TRLUML CORONARY STENT W/ANGIO ONE ART/BRANCH CARDIAC CATHETERIZATION STENT PLACEMENT-SINGLE MAJOR CORONARY ARTERY OR BRANCH [facility] [place] [address] Referral ID Status Reason Start Date Expiration Date Visits Requ ested Visits Authorized [id number] 1 1 Encounter Details Date Type Department Care Team Description 01/30/2022 Laboratory Lab 3L Katalina ASCVD (arterios clerotic Appointment [facility] cardiovas cular disease) [place] [address] Social History Tobacco Use Types Packs/Day Years [...] Cardiology Zulma Dolan MD [facility] [place], [place] [address] (Wo rk) 05/28/2022 Laboratory Appointment Lab 05/28/2022 Office Visit Cardiology Zulma Dolan MD [facility] [place] [address] Liz Poole PA [facility] [place] [address] 06/10/2022 Office Visit Dermatology Laura Scherer MD [facility] DR [address] [place], [place] [address] (Wo rk) documented as of [...] (ABNORMAL) Differential, Automated (01/30/2022 7:19 AM EDT) [facility] gist Method Time Signature Neutrophils % 77.9 % [facility] LABORATORY Neutr Abs (ANC) 5.31 1.70 - [facility] 6.10 [facility] x10(3)/[facility] LABORATORY Lymphocytes % 12.0 % [facility] LABORATORY Lymphocytes Abs 0.8 (L) 0.9 - 3.2 [facility] x10(3)/[facility] LABORATORY Monocytes % 8.1 % [facility] LABORATORY Monocyte Abs 0.6 0.3 - 0.9 [facility] x10(3)/[facility] LABORATORY Eosinophils % 0.4 % [facility] LABORATORY Eosinophils Abs 0.0 0.0 - 0.4 [facility] x10(3)/[facility] LABORATORY Basophils % 0.6 % [facility] LABORATORY Basophils Abs 0.0 0.0 - 0.1 [facility] x10(3)/[facility] LABORATORY Immature Gran % 1.00 % [...] Organization Address City/State/[place] [address] (ABNORMAL) Hemogram (01/30/2022 7:19 AM EDT) Analysis Performed At Patho logist Time Signature WBC 6.8 4.0 - 9.5 [facility] x10(3)/[facility] LABORATORY RBC 4.32 (L) 4.58 - [facility] 5.54 [facility] x10(6)/[facility] LABORATORY Hemoglobin 13.0 (L) 13.7 - [facility] 16.5 g/dL [facility] LABORATORY Hematocrit 39.8 (L) 40.5 - [facility] 48.5 % [facility] LABORATORY MCV 92.1 82.9 - [facility] 93.1 fL [facility] LABORATORY MCH 30.1 27.5 - [facility] 32.1 pg [facility] LABORATORY MCHC 32.7 32.0 - [facility] 35.7 g/dL [facility] LABORATORY Platelets 172 145 - 357 [facility] x10(3)/[facility] LABORATORY RDWSD 54.5 (H) 36.0 - [facility] RYAN 45.0 [facility] LABORATORY RDWCV 16.2 (H) 11.4 - [facility] 13.8 % [facility] LABORATORY MPV 9.0 7.6 - 12.9 [facility] LABORATORY nRBC % Auto 0.0 % [facility] LABORATORY nRBC Abs Auto 0.000 0.000 - [facility] 0.000 [facility] x10(3)/[facility] LABORATORY Specimen Anatomical Collection Method Collection Time Receive d Time (Source) Location / / Volume Laterality Blood 01/30/2022 7:19 AM 7:21 EDT AM EDT Resulting Agency Comment Spec In Lab Zulma BROWN HEMATOLOGY ORDERABLES Performing Organization Address City/State/[place] [address] (ABNORMAL) Basic Metabolic Panel (non-fasting) (01/30/2022 7:19 AM EDT) P athologist Signature Glucose Lvl 237 (H) 65 - 199 [facility] mg/dL [facility] [...] LABORATORY Calcium 9.5 8.5 - 10.5 mg/dL [facility] LABORATORY Estimated GFR 50 (L) >=60 [...] Organization Address City/State/ZIP Code Phon e Number [place] [id number] HOS[address]ITAL [address] documented in this encounter Visit Diagnoses Diagnosis ASCVD (arteriosclerotic cardiovascular d isease) Unspecified cardiovascular disease documented in this encounter Care Teams Wood Processing Worker Relationship Specialty Start Date End Date Lovely Vicente MD PCP - General 04/16/[address] [place] [address] documented as of this encounter
--- OUTSIDE RECORDS SUMMARY | 2022-05-15 08:20 | XMS_ITS | Encounter Summary ---
:1945 Author Organization [facility] [place] [address] Care Team Providers Name Role Phone Lovely Vicente MD Primary Care Provider Reason for Visit Reason Onset Date Comments Advice Only 01/28/2022 Encounter Details Date Type Department Care Team Description 01/28/2022 Telephone Cardiology at [facility] Chitra Angela, medical charge entry [place] [address] Social History Tobacco Use Types Packs/Day [...] Fatima assists patient with medications. Number for label drier scheduling given and she will call them to verify this information Meds reviewed. As per our form from label drier Eliquis hold for 48 hours prior. Pt [...] Dolan MD [facility] [address] [place], [place] [address] (Wo rk) 05/28/2022 Laboratory Appointment Lab 05/28/2022 Office Visit Cardiology Zulma Dolan [place] [facility] [place] [address] iLz Poole PA [facility] [place] [address] 06/10/2022 Office Visit Dermatology Laura Scherer MD [facility] [address] [place], [place] 0[address] (Wo rk) documented as of this encounter Visit Diagnoses Not on filedocumented in this encounter Care Teams Forklift Truck Mechanic Relationship Specialty Start Date End Date Lovely Vicente MD PCP - General 04/16/[address] [place] [address] documented as of this encounter
--- OUTSIDE RECORDS SUMMARY | 2022-05-15 08:20 | XMS_ITS | Encounter Summary ---
:1945 Author Organization [facility] Address [facility] [place] [address] Care Team Providers Name Role Phone Lovely Vicente MD Primary Care Provider Reason for Visit Auth/Cert Specialty Diagnoses / Procedures Referred By Contact Refer red To Contact Diagnoses ASCVD (arteriosclerotic cardiovascular disease) [I25.10] Vitaliy Nobles MD [facility] Procedures PRO PERC TRLUML CORONARY STENT W/ANGIO ONE ART/BRANCH CARDIAC CATHETERIZATION STENT PLACEMENT-SINGLE MAJOR CORONARY ARTERY OR BRANCH [facility] [place] [address] Referral ID Status Reason Start Date Expiration Date Visits Requ ested Visits Authorized [id number] 1 1 Encounter Details Date Type Department Care Team Description 01/30/2022 Hospital Encounter Short Stay Unit at Vitaliy Nobles, CVD (arteriosclerotic cardiovascular disease); Barbara Blue MD 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 Please follow up with your pipeline inspector in the next 4-6 weeks. We have [...] Murray RN - 01/30/2022 4:54 PM EDT [facility] Short Stay Unit Discharge Note All [...] included. [facility] [place] [address] CORONARY ANGIOGRAM AND PERCUTANEOUS CORONARY INTERVENTION REPORT Patient: Don Fatima : 1945 MR number: [id number] Date of Service: 01/30/2022 Embroidery Assistant: Vitaliy Nobles MD Fellow: KEYON Elizabeth INDICATION: [...] a long 2.0 x 26 mm HARDEEP [place] TUCKER stent and positioned it at the [...] using a 2.0 x 26 mm HARDEEP [place] TUCKER stent. This completes the revascularization ofall [...] MD [facility] [place] [address] Liz Poole PA [facility] [place] [address] 06/10/2022 Office Visit Dermatology Laura Scherer MD [facility] ER DR [address] [place], [place] [address] (Wo rk) Scheduled Orders Name [...] LABORATORY Neutr Abs (ANC) 3.96 1.70 - [facility] 6.10 [facility] x10(3)/[facility] LABORATORY Lymphocytes % 16.3 % [facility] LABORATORY Lymphocytes Abs 0.9 0.9 - 3.2 [facility] x10(3)/[facility] LABORATORY Monocytes % 10.0 % [facility] LABORATORY Monocyte Abs 0.6 0.3 - 0.9 [facility] x10(3)/[facility] LABORATORY Eosinophils % 0.5 % [facility] LABORATORY Eosinophils Abs 0.0 0.0 - 0.4 [facility] x10(3)/[facility] LABORATORY Basophils % 0.5 % [facility] LABORATORY Basophils Abs 0.0 0.0 - 0.1 [facility] x10(3)/[facility] LABORATORY Immature Gran % 0.90 [...] City/State/[place] [address] (ABNORMAL) Hemogram (01/30/2022 2:12 PM EDT) Analysis Performed At Patho logist Time Signature WBC 5.5 4.0 - 9.5 [facility] x10(3)/[facility] LABORATORY RBC 4.30 (L) 4.58 - [facility] 5.54 [facility] x10(6)/[facility] LABORATORY Hemoglobin 12.7 (L) 13.7 - [facility] 16.5 g/dL [facility] LABORATORY Hematocrit 39.4 (L) 40.5 - [facility] 48.5 % [facility] LABORATORY MCV 91.6 82.9 - [facility] 93.1 [facility] LABORATORY MCH 29.5 27.5 - [facility] 32.1 pg [facility] LABORATORY MCHC 32.2 32.0 - [facility] 35.7 g/dL [facility] LABORATORY Platelets 172 145 - 357 [facility] x10(3)/[facility] LABORATORY RDWSD 54.5 (H) 36.0 - [facility] 45.0 [facility] LABORATORY RDWCV 16.4 (H) 11.4 - [facility] 13.8 % [facility] LABORATORY MPV 9.2 7.6 - 12.9 [facility] LABORATORY nRBC % Auto 0.0 % [facility] LABORATORY nRBC Abs Auto 0.000 0.000 - [facility] 0.000 [facility] x10(3)/[facility] LABORATORY Specimen Anatomical Collection Method Collection Time Receive d Time (Source) Location / / Volume Laterality Blood 01/30/2022 2:12 PM 2 2:37 EDT PM EDT Resulting Agency Comment Spec In Lab Eddi Elizabeth Jr., MD HEMATOLOGY ORDERABLES Performing Organization Address City/State/[place] [address] (ABNORMAL) Basic Metabolic Panel (non-fasting) (01/30/2022 2:12 PM EDT) P athologist Signature Glucose Lvl 163 65 - 199 [facility] mg/dL [facility] LABORATORY Comment: Diabetes: >=200 mg/dL plus symp toms BUN 30 (H) 10 - 20 mg/dL [facility] LABORATORY Creatinine 1.47 0.80 - 1.50 mg/dL [facility] LABORATORY Sodium 140 135 - [...] City/State/[place] [address] POCT Glucose (01/30/2022 1:41 PM EDT) athologist Signature POC Glucose 148 65 - 199 [facility] mg/dL [facility] LABORATORY Comment: Supplemental ranges: <140 mg/dL before meals <180 mg/dL all other times of the day Specimen Anatomical Collection Method Collection Time Receive d Time (Source) Location / / Volume Laterality Blood 01/30/2022 1:41 PM 1:41 EDT PM EDT Vitaliy Sandra Nobles MD POINT OF CARE TEST ORDERABLE S Performing Organization Address City/[facility]/ZIP Code Phon e Number [address] POCT Glucose (01/30/2022 10:48 AM EDT) P athologist Signature POC Glucose 193 65 - 199 [facility] mg/dL [facility] LABORATORY Comment: Supplemental ranges: <140 mg/dL before meals <180 mg/dL all other times of the day Specimen Anatomical Collection Method Collection Time Receive d Time (Source) Location / / Volume Laterality Blood 01/30/2022 10:48 01/30/2022 AM EDT 10:48 AM EDT Vitaliy Sandra Nobles MD POINT OF CARE TEST ORDERABLE S Performing Organization Address [facility] [place] [address] EKG 12 Lead (01/30/2022 10:33 AM EDT) Component Value Ref Range Test Analysis Performed Pathologis t Method Time At Signature Ventricular rate 64 BPM MUSE SYSTEM Atrial Rate 64 BPM MUSE SYSTEM P-R Interval 162 ms MUSE SYSTEM QRS Duration 94 ms MUSE SYSTEM Q-T Interval 422 ms MUSE SYSTEM QTC Calculated 435 ms MUSE SYSTEM (Bezet) Calculated P [place] 41 degrees MUSE SYSTEM Calculated R [place] -27 degrees MUSE SYSTEM Calculated T [place] 104 degrees MUSE SYSTEM INTERPRETATION Normal sinus rhythm MUSE SYSTEM Anterolateral infarct (cited on or before 09-DEC-2021) Abnormal ECG When compared with ECG of 10-DEC-2021 11:17, No significant change was found Confirmed by Gary Perez ([id number]) on 01/30/2022 5:57:5 2 PM Specimen Anatomical [...] Laterality Volume Narrative 01/30/2022 2:09 PM EDT ?[facility] ? Cardiac Cathete rization/Intervention Report ? Patient Name: Don Fatima. ? Procedure Date: 01/30/2022 ? A #: [id number] ? Primary Physician: Nobles, Vitaliy P ? Case #: [id number] ? File Name: [id number] ? Catheterization Order Number: [id number] ? [facility] ? Final Report [place], [place] ? Patient Name: ? Don Mccollum. Stewa rt ? ID#: ?[id number] ? : ?1945 ? Procedure Date: ? [...] ?* Peripheral Intravascular Ultr asound ? History ?Dno Fatima is a 76 year o ld [...] ?designated as ASA Class III. Th e [facility] clinical frailty scale is 5: Mildly [...] procedure was Urgent. The indication for ?the entry level lab technician visit is stable kn own CAD. Chest pain symptom assessment ?was: Typical Angina. ? Technique: ?A 6 SLFr sheath was inserted in the right radial artery utilizing the ?Seldinger technique. The right coronary artery was injected utilizing a ?IR 2.0 catheter. Coronary stent insertion was performed and the equipment ?utilized will be described in [facility] intervention summary section. 9,000 ?units of [...] guiding catheter an d a 3.5 Fr [facility] [place] [address] ??20 Mhz ?using Manual pullback. ??Imagin [...] A premounted 2.00 x 26 mm Hardeep [place] (TUCKER) ? was deployed wi a maximum [...] Wedelivered along 2.0 x 26 mm HARDEEP [place] ? TUCKER stent and p ositioned it [...] dose administered prior to arrival in the entry level lab technician. ?Recommended anti-platelet/anti- thrombotic regimen: ?Continue [...] ?modification of this regimen. C onsult [facility] [place] using a 2.0 x 26 mm HARDEEP [place] TUCKER stent. ?This completes the revasculariz ation [...] Procedure Note Vitaliy Nobles MD - 03/06/2022 [facility] Cardiac Catheterization/Intervention Re port Patient Name: Don Fatima Procedure Date: 01/30/2022 A #: [id number] Primary Physician: Vitaliy Nobles Case #: [id number] File Name: [id number] Catheterization Order Number: [id number] [facility] Final Report [place], [place] Patient Name: Don Fatima ID#: [...] e was Urgent. The indication for the entry level lab technician visit is stable known CAD. [...] 1.5 guiding catheter and a 3.5 Fr [facility] [place] [address] 20 Mhz using Manual pullback. Imaging [...] atmospheres. A premounted 2.00 x 26 mm [place] (TUCKER) was deployed with a maximum inflation [...] along 2. 0 x 26 mm HARDEEP [place] TUCKER stent and positioned it at the [...] administered prior t o arrival in the entry level lab technician. 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 That day in November 2021, [...] using a 2.0 x 26 mm HARDEEP [place] TUCKER stent. This completes the revascularization of [...] (H) 65 - 199 [facility] mg/dL [facility] LABORATORY Comment: Supplemental ranges: <140 mg/dL before meals <180 mg/dL all other times of the day Specimen Anatomical Collection Method Collection Time Receive d Time (Source) Location / / Volume Laterality Blood 01/30/2022 9:04 AM 2 9:04 EDT AM EDT Vitaliy Nobles MD POINT OF CARE TEST ORDERABLE S Performing Organization Address City/State/ZIP [place] [address] (ABNORMAL) POCT Glucose (01/30/2022 8:10 AM EDT) athologist Signature POC Glucose 224 (H) 65 - 199 [facility] mg/dL [facility] LABORATORY Comment: Supplemental ranges: <140 mg/dL before meals <180 mg/dL all other times of the day Specimen Anatomical Collection Method Collection Time Receive d Time (Source) Location / / Volume Laterality Blood 01/30/2022 8:10 AM 2 8:10 EDT AM EDT Vitaliy Nobles MD POINT OF CARE TEST ORDERABLE S Performing Organization Address City/State/ZIP [place] [address] documented in this encounter Visit Diagnoses Diagnosis ASCVD (arteriosclerotic cardiovascular d isease) Unspecified cardiovascular disease 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 ASHD (arteriosclerotic heart disease) Coronary atherosclerosis of unspecified type of vessel, squaxin or graft ASCVD (arteriosclerotic cardiovascular d isease) Unspecified cardiovascular disease documented in this encounter Admitting Diagnoses Diagnosis CAD (coronary artery disease) Coronary atherosclerosis of unspecified type of vessel, squaxin or graft documented in this encounter Administered [...] Procedure), Routine niCARdipine (Cardene) (100 mcg/mL) dilution (EXERCISE PHYSIOLOGIST CERTIFIED) (CANCELED ) 0927 (Given - Provider: Vitaliy [...] (Intra-Procedure) documented in this encounter Care Teams Support Team Assoc Relationship Specialty Start Date End Date Lovely Vicente MD PCP - General 04/16/[address] [place] [address] documented as of this encounter
--- OUTSIDE RECORDS SUMMARY | 2022-05-15 08:20 | XMS_ITS | Encounter Summary ---
:1945 Author Organization [facility] [place] [address] Care Team Providers Name Role Phone Lovely Vicente MD Primary Care Provider Encounter Details Date Type Department Care Team Description 12/24/2021 Orders Only Dental Hygienist Zulma Finch ASCVD (art eriosclerotic [facility] cardiovascular disease) [facility] [place] [address] [place], [place] [phone] (Work) [phone] Social History Tobacco Use Types Packs/Day Years [...] Zulma Dolan MD [facility] [address] [place] [address] (Wo rk) 05/28/2022 Laboratory Appointment Lab 05/28/2022 Office Visit Cardiology Zulma Dolan [place] [address] Liz Poole PA [facility] [place] [address] 06/10/2022 Office Visit Dermatology Laura Scherer MD [facility] DR [address] [place], [place] [address] (Wo rk) documented as of this encounter Visit Diagnoses Diagnosis ASCVD (arteriosclerotic cardiovascular d isease) Unspecified cardiovascular disease documented in this encounter Care Teams Primary Operator Relationship Specialty Start Date End Date Lovely Vicente MD PCP - General 04/16/[address] [place] [address] documented as of this encounter
--- OUTSIDE RECORDS SUMMARY | 2022-05-15 08:21 | XMS_ITS | Encounter Summary ---
:1945 Author Organization [facility] [place] [address] Care Team Providers Name Role Phone Lovely Vicente MD Primary Care Provider Encounter Details Date Type Department Care Team Description 03/20/2021 Ancillary Procedure Radiology Library [place] [address] [place] [address] [phone] Social History Tobacco Use Types Packs/Day Years [...] Dolan MD [facility] [place], [place] [address] (Wo rk) 05/28/2022 Laboratory Appointment Lab 05/28/2022 Office Visit Cardiology Zulma Dolan MD [facility] [place] [address] Liz Poole PA [facility] [place] [address] 06/10/2022 Office Visit Dermatology Laura Scherer MD [facility] ER [address] [place], [place] 0[address] (Wo rk) documented as [...] Address City/State/ZIP Code Phon e Number [place], [place] documented in this encounter Visit Diagnoses Not on filedocumented in this encounter Care Teams Hotel Manager Relationship Specialty Start Date End Date Lovely Vicente MD PCP - General 04/16/[address] [place] [address] documented as of this encounter
--- OUTSIDE RECORDS SUMMARY | 2022-05-15 08:21 | XMS_ITS | Encounter Summary ---
:1945 Author Organization [facility] [address] Care Team Providers Name Role Phone Lovely Vicente MD Primary Care Provider Encounter Details Date Type Department Care Team Description 02/19/[address] [facility] Ariana Wilder LPN [address] [place] [address] Social History Tobacco Use Types Packs/Day [...] [facility] [place], [place] [address] (Wo rk) 05/28/2022 Laboratory Appointment Lab 05/28/2022 Office Visit Cardiology Zulma Dolan MD [facility] [place] [address] Liz Poole PA [facility] [place] [address] 06/10/2022 Office Visit Dermatology Laura Scherer MD [facility] [address] [place], [place] [address] (Wo rk) documented as of this encounter Visit Diagnoses Not on filedocumented in this encounter Care Teams Blanket Binder Relationship Specialty Start Date End Date Lovely Vicente MD PCP - General 04/16/[address] [place] [address] documented as of this encounter
--- OUTSIDE RECORDS SUMMARY | 2022-05-15 08:21 | XMS_ITS | Encounter Summary ---
:1945 Author Organization [facility] [place] [address] Care Team Providers Name Role Phone Lovely Vicente MD Primary Care Provider Reason for Visit Auth/Cert Specialty Diagnoses / Procedures Referred By Contact Refer red To Contact Diagnoses NSTEMI Procedures emerg ipi Referral ID Status Reason Start Date Expiration Date Visits Requ ested Visits Authorized [id number] 1 1 Encounter Details Date Type Department Care Team Description 12/10/2021 Surgery Wood Router Hand Asa Coulter MD CARDIAC CATHETERIZATION [facility] DR [place] [address] [place] [address] [phone] (Wo rk) Social History Tobacco Use Types [...] Don Fatima Patient Age: 76 y.o. Language: Guamanian Race: White Ethnicity: Not nor Admit date: [...] Peter PA-C Kelly LaFlamme PA-C Cardiovascular Medicine [phone] Discharge Diagnoses (Hospital Problems) and Secondary Diagnoses [...] 3.75 guiding catheter and a 3.5 Fr [place] [facility] [place] 20 Mhz using Manual pullback. Imaging was successful. Image quality was good. The ostial LCX showed moderate diffuse atherosclerotic plaque with scattered three quadrant calcification. Measurements were performed after pre-dilation. Post Intervention: The stent was well expanded and apposed. Intravascular Ultrasound was performed in the distal LM using a 7 Fr EBU 3.75 guiding catheter and a 3.5 Fr [place] 20 Mhz using Manual pullback. Imaging was successful. Image quality was good. The distal LM showed moderate diffuse atherosclerotic plaque. Post Intervention: The stent was well expanded and apposed. Indication for Intervention: Coronary intervention was indicated for primary therapy for an acute myocardial infarction. The priority for the procedure was Urgent. The [facility] indication for the procedure was [...] may require modification of this regimen. Consult [facility] Interventional [...] appointments: During 8am-5pm Wednesday through Wednesday call [phone] to speak with a nurse in the cardiology clinic All other times call [phone] and ask to speak to the elevator operator service business process consultant. Return to work: One week Driving: No driving for 48 hours after catheterization. Follow up Appointments: PCP Lovely Vicente MD [phone] to see patient at the end of December for annual check up. Patient to see Dr. Lorenzana at 1120 am at December 19 for a post hospital check up. Supervisor [place] Dr. De Oliveira to see you in [facility]. Left a message for office to set a date and time. Please call [phone] Nobles to see the patient for a same day cath in 2-3 weeks from now. Office to call with a date and time. For questions please call [phone] Home oxygen therapy: N/A Arrangements for VNA/home care: none Future Appointments and Orders Future Orders Complete By Expires Basic Metabolic Panel (non-fasting) [LAB15 Custom] 12/19/2021 (Approximate) 12/12/2022 Process Instructions: INCLUDES: Calcium, BUN, Creat, GFR, Glucose, Lytes Scheduling Instructions: Comments: Questions: Referral to Cardiac Rehab [ALP814 Custom] As directed Process Instructions: If no [...] appointments: During 8am-5pm Wednesday through Wednesday call [phone] to speak with a nurse in the cardiology clinic All other times call [phone] and ask to speak to the elevator operator service business process consultant. Return to work: One week Driving: No driving for 48 hours after catheterization. Follow up Appointments: PCP Lovely Vicente MD [phone] to see patient at the end of December for annual check up. Patient to see Dr. Lorenzana at 1120 am at December 19 for a post hospital check up. Supervisor [place] Dr. De Oliveira to see you in [facility]. Left a message for office to set a date and time. Please call [phone] Nobles to see the patient for a same day cath in 2-3 weeks from now. Office to call with a date and time. For questions please call [phone] Home oxygen therapy: N/A Arrangements for VNA/home [...] Progress Note Patient Name: Don Fatima Service: GEOPHYSICAL ENGINEER / PA Responsible Attending: Ifeanyi Truong MD [...] was given Lasix 80mg IV x1 in dental laboratory technician. Tolerated procedure well. Home today [...] with MD Janneth Neville PA 12/12/2021 Pager [phone] Associated attestation - Ifeanyi Truong MD - [...] ratio for each meal) Desirae Jett APRN [facility] Endocrinology Diabetes Management Pager [phone] 20 minutes of this 35 minute visit [...] Progress Note Patient Name: Don Fatima Service: GEOPHYSICAL ENGINEER / PA Responsible Attending: Iker Cuevas MD [...] was given Lasix 80mg IV x1 in dental laboratory technician. Tolerated procedure well. Review of [...] Intake/Output Summary (Last 24 hours) at 12/11/2021 0962 Last data filed at 12/11/2021 0508 Gross [...] Progress Note Patient Name: Don Fatima Service: GEOPHYSICAL ENGINEER / PA Responsible Attending: Iker Cuevas MD Reason for continued hospitalization: NSTEMI- s/p R/LHC- PCW 27, occluded SVGs s/p PCI to ostial LCX ADHF and hypoxia- IV diuresis Active Problems: Active Hospital Problems Diagnosis ??? Admitted with 2 days of sob, hypoxemia, and + trop. Known CAD with hx of ND and CABG. DM. MARIA VCITORIA.ICM. ??? ASHD (arteriosclerotic heart disease) ??? Cardiomyopathy, [...] was given Lasix 80mg IV x1 in dental laboratory technician. Tolerated procedure well. Review of [...] TROPONINT 1.13* 0.92* 0.89* Pertinent Radiographic/Diagnostic Results: R/[facility] 12/10/21 Hemodynamics: Right Heart Pressures [...] Discussed with MD Migdalia Peter PA-C Pager #[phone] 12/10/2021 Cardiology Attending Note I have seen [...] Progress Note Patient Name: Don Fatima Service: GEOPHYSICAL ENGINEER / PA Responsible Attending: Iker Cuevas MD [...] Discussed with MD Migdalia Peter PA-C Pager #[phone] 12/09/2021 Cardiology Attending Note I have seen [...] < 70 -CPAP tonight Iker Taverass MD [facility] Total [...] [facility] MAIN OR ??? PRO AMPUTATION FOOT, TRANSMETATARSAL Right 08/09/2017 AMPUTATION, TRANSMETATARSAL (WRVU 12.71) performed by Yonathan Smith MD at [facility] MAIN OR [...] at [facility] ENDOSCOPY ??? PRO DRESSING CHANGE UNDER ANESTHESIA Right 08/11/2017 (MSURG) DRESSING CHANGE (FOR OTHER THAN IVAN) UNDER ANES. (WRVU 0.86) performed by Lamar Smith MD at [facility] MAIN OR ??? PRO ENDOSCOPY W/VIDEO-ASST VEIN HARVEST, CABG Right 07/07/2017 ENDOSCOPIC HARVEST VEIN(S) FOR CABG (WRVU 0.31) performed by Yuan Retana MD at [facility] MAIN OR ??? PRO THYROIDECTOMY 03/28/2013 THYROIDECTOMY, TOTAL OR COMPLETE performed by Manny Mcknight MD at [facility] MAIN OR Significant Family History: Family [...] Monitor for ADRs. Trend troponins. Admission EKG. [facility] 12/09; consented. TTE. Telemetry monitoring, [...] code #Diet-carb control; n.p.o. after midnight for [facility] #DVT prophy- heparin infusion #GI prophy- PPI Discussed with MD Morgan Peter PA-C APP2 pager [phone] 12/08/2021 Cardiology Attending Note I have seen [...] is type 1 due to graft or salamatof coronary stenosis vs acute injury from CHF. [...] Type: *No Product type* / Secondary Insurance: [employer] [place] Prescription Coverage: Yes This plan was [...] cath without complications. Migdalia Parker PA-C Pager #[phone] 12/10/2021 Initial Assessments - Nick Georges RN [...] COVID test: Lab Results Component Value Date [id number] Not Detected 12/08/2021 Past medical History: Past [...] spouse would be surrogate decision maker per [place] surrogate decision making law. (Only good for 180 days) Any patient receiving care at [facility] must abide by [place] law. The hierarchy for surrogate decision making [...] standard, cane - straight Home Address: [address] [place] [address] [place] [address] Social & Family Supports: All names listed below confirmed with patient as current and correct Extended Emergency Contact Information Primary Emergency Contact: Kisha Fatima Address: [address] [place] [address] [place] [address] [facility] Mobile Relation: Spouse Secondary Emergency Contact: Elba Swenson Address: [place] [place] [place], [place] [id number] [place] [address] Mobile Relation: Child Current Care Provided by: [...] Type: *No Product type* / Secondary Insurance: [facility] Prescription Coverage: Yes Preferred Pharmacy: [facility] [address] [address] - [place], [place] - [address] [address] [place] Status: Patient is a : unable to assess Primary Care Provider: Lovely Vicente MD [phone] Patient/Caregiver Goals of Treatment: Get out of here Potential Needs for Transition of Care: none Agency Referrals: none patient has used [facility] in the past Transportation: no concerns Transportation Anticipated: family or friend will provide Concerns to be Addressed: patient refuses services, discharge planning Assessment: Patient is admitted to [facility] Service pager [phone] for 76 y.o.??male??with h/o??CAD s/p 3vCABG (THOMPSON-LAD, [...] status on current unit. Nick Georges RN napper runner, Office of Care Management Pager: [phone] Brief Op Note - Vitaliy Nobles MD - 12/10/2021 8:31 AM EDT Images from the original note were not included. [facility] [place] [address] [address] CORONARY ANGIOGRAM AND PERCUTANEOUS CORONARY INTERVENTION REPORT Patient: Don Fatima : 1945 MR number: [id number] Date of Service: 12/10/2021 Cabinet Mounter: Vitaliy Nobles MD Fellow: Rancho Woods MD [...] health care facility diabetes care. Diabetes History: Don Fatima has had diabetes for 10 years. He has been on insulin for the last several years andis managed by his PCP. Lives in [place], [place] with his . States that he [...] your patient Desirae Jett APRN Endocrinology Pager [phone] 70 minutes of this 80 minute visit [...] Program Consult Note Called to see Don aFtima who is a 76 y.o.male by 4E [...] for further details. STEPHANIE Rebolledo 12/08/2021 Pager [phone] documented in this encounter Plan of Treatment Upcoming Encounters Date Type Specialty Care Team Description 05/28/2022 Appointment Cardiology Zulma Dolan MD [facility] [place], [place] [address] (Wo lissa) 05/28/2022 Laboratory Appointment Lab 05/28/2022 Office Visit Cardiology Zulma Dolan MD [facility] [place] [address] Liz Poole PA [facility] [place] [address] 06/10/2022 Office Visit Dermatology Laura Scherer MD [facility] DR TEJA GR[facility]DERMAT OGY [place], [place] [address] (Wo rk) Scheduled Referrals Name [...] Glucose 215 (H) 65 - 199 [facility] mg/dL [facility] Comment: Supplemental ranges: <140 mg/dL before meals <180 mg/dL all other times of the day Specimen Anatomical Collection Method Collection Time Receive d Time (Source) Location / / Volume Laterality Blood 12/12/2021 7:42 AM 7:42 EDT AM EDT Ifeanyi Truong MD POINT OF CARE TEST ORDERABLE S Performing Organization Address City/State/[place] [address] (ABNORMAL) Differential, Automated (12/12/2021 4:51 AM EDT) athologist Signature Neutrophils % 75.4 % [facility] Neutr Abs (ANC) 5.95 1.70 - [facility] 6.10 [facility] x10(3)/[facility] LABORATORY Lymphocytes % 12.2 % [facility] Lymphocytes Abs 1.0 0.9 - 3.2 [facility] x10(3)/[facility] [place] [facility] LABORATORY Monocytes % 9.5 % [facility] Monocyte Abs 0.8 0.3 - 0.9 [facility] x10(3)/[facility] [place] [facility] LABORATORY Eosinophils % 1.8 % [facility] Eosinophils Abs 0.1 0.0 - 0.4 [facility] x10(3)/[facility] [place] [facility] LABORATORY Basophils % 0.5 % [facility] Basophils Abs 0.0 0.0 - 0.1 [facility] x10(3)/[facility] [place] [facility] LABORATORY Immature Gran % 0.60 % [facility] [...] Address City/State/ZIP Code Phon e Number [address] (ABNORMAL) Hemogram (12/12/2021 4:51 AM EDT) Analysis Performed At Patho logist Time Signature WBC 7.9 4.0 - 9.5 [facility] [place] [facility] LABORATORY RBC 4.19 (L) 4.58 - [place] 5.54 [facility] x10(6)/[facility] LABORATORY Hemoglobin 12.1 (L) 13.7 - [place] 16.5 g/dL [facility] Hematocrit 36.7 (L) 40.5 [facility] 48.5 % [facility] MCV 87.6 82.9 [facility] 93.1 [facility] LABORATORY MCH 28.9 27.5 - [place] 32.1 pg [facility] MCHC 33.0 32.0 - [place] 35.7 g/dL [facility] Platelets 231 145 - 357 [facility] x10(3)/[facility] [place] [facility] LABORATORY RDWSD 47.2 (H) 36.0 - [facility] 45.0 [facility] LABORATORY RDWCV 14.6 (H) 11.4 - [facility] 13.8 % [facility] MPV 9.5 7.6 - 12.9 [facility] LABORATORY nRBC % Auto 0.0 % [facility] nRBC Abs Auto 0.000 0.000 - [place] 0.000 [facility] x10(3)/[facility] LABORATORY Specimen Anatomical Collection Method Collection Time Receive d Time (Source) Location / / Volume Laterality Blood 12/12/2021 4:51 AM 2 5:06 EDT AM EDT Resulting Agency Comment Spec In Lab Bijan Sun MD HEMATOLOGY ORDERABLES Performing Organization Address City/[facility]/[place] [address] (ABNORMAL) Prothrombin Time (12/12/2021 4:51 AM EDT) athologist Signature PT 14.9 (H) 9.4 - 12.5 [facility] LABORATORY INR 1.3 [facility] LABORATORY [...] Address City/State/[place] [address] (ABNORMAL) BMP w/fasting Glucose (12/12/2021 4:51 AM EDT) athologist Signature Glucose 152 (H) 65 - 99 [facility] Fasting mg/dL [facility] Comment: ?Fasting* Glucose Interpretive [...] Organization Address City/State/[place] [address] Magnesium (12/12/2021 4:51 AM EDT) athologist Signature Magnesium 1.02 0.69 - 1.07 [facility] mmol/L [facility] Specimen Anatomical Collection Method Collection Time Receive d Time (Source) Location / / Volume Laterality Blood 12/12/2021 4:51 AM 2 5:06 EDT AM EDT Resulting Agency Comment Spec In Lab Iker uCevas MD CHEMISTRY ORDERABLES Performing Organization Address City/[facility]/ZIP Code Phon e Number [address] POCT Glucose (12/12/2021 3:43 AM EDT) athologist Signature POC Glucose 138 65 - 199 [place] [facility] mg/dL [facility] Comment: Supplemental ranges: <140 mg/dL before meals <180 mg/dL all other times of the day Specimen Anatomical Collection Method Collection Time Receive d Time (Source) Location / / Volume Laterality Blood 12/12/2021 3:43 AM 2 3:43 EDT AM EDT Iker Cuevas MD POINT OF CARE TEST ORDERABLE S Performing Organization Address City/State/ZIP Code Phon e Number [address] POCT Glucose (12/11/2021 11:44 PM EDT) athologist Signature POC Glucose 124 65 - 199 [place] mg/dL [facility] Comment: Supplemental ranges: <140 mg/dL before meals <180 mg/dL all other times of the day Specimen Anatomical Collection Method Collection Time Receive d Time (Source) Location / / Volume Laterality Blood 12/11/2021 11:44 12/11/2021 PM EDT 11:44 PM EDT Iker Cuevas MD POINT OF CARE TEST ORDERABLE S Performing Organization Address City/State/ZIP Code Phon e Number [address] (ABNORMAL) POCT Glucose (12/11/2021 8:12 PM EDT) athologist Signature POC Glucose 200 (H) 65 - 199 [place] mg/dL [facility] Comment: Supplemental ranges: <140 mg/dL before meals <180 mg/dL all other times of the day Specimen Anatomical Collection Method Collection Time Receive d Time (Source) Location / / Volume Laterality Blood 12/11/2021 8:12 PM 2 8:12 EDT PM EDT Iker Cuevas MD POINT OF CARE TEST ORDERABLE S Performing Organization Address City/State/[place] [address] (ABNORMAL) POCT Glucose (12/11/2021 6:50 PM EDT) P athologist Signature POC Glucose 245 (H) 65 - 199 [place] mg/dL [facility] Comment: Supplemental ranges: <140 mg/dL before meals <180 mg/dL all other times of the day Specimen Anatomical Collection Method Collection Time Receive d Time (Source) Location / / Volume Laterality Blood 12/11/2021 6:50 PM 2 6:50 EDT PM EDT Iker Cuevas MD POINT OF CARE TEST ORDERMATTHEW S Performing Organization Address City/State/[place] [address] (ABNORMAL) POCT Glucose (12/11/2021 4:00 PM EDT) P athologist Signature POC Glucose 383 (H) 65 - 199 [facility] mg/dL [facility] Comment: Supplemental ranges: <140 mg/dL before meals <180 mg/dL all other times of the day Specimen Anatomical Collection Method Collection Time Receive d Time (Source) Location / / Volume Laterality Blood 12/11/2021 4:00 PM 2 4:00 EDT PM EDT Iker Cuevas MD POINT OF CARE TEST ORDERABLE S Performing Organization Address City/State/[place] [address] (ABNORMAL) POCT Glucose (12/11/2021 12:01 PM EDT) P athologist Signature POC Glucose 342 (H) 65 - 199 [place] mg/dL [facility] Comment: Supplemental ranges: <140 mg/dL before meals <180 mg/dL all other times of the day Specimen Anatomical Collection Method Collection Time Receive d Time (Source) Location / / Volume Laterality Blood 12/11/2021 12:01 12/11/2021 PM EDT 12:01 PM EDT Iker Cuevas MD POINT OF CARE TEST ORDERABLE S Performing Organization Address City/State/ZIP [place] [address] COVID-19 PCR (12/11/2021 10:13 AM EDT) [facility] Method Time Signature SARS-CoV-2 Not Detected Not Detected [facility] RNA [facility] Comment: [...] diagnosis of COVID-19 is performed using the [employer] Code RONNA S-CoV-2 Assay as authorized by the FDA Emergency Use Authorization (EUA). This EUA assay is intended for In-vitro Diagnostic (IVD) use with respiratory sp ecimens such as nasopharyngeal swabs collected from individuals during the ac inupiat phase of infection. This assay is performed based on the instructions for use provided by [employer] and additional guidance provided by CDC [...] is infected. As required or requested by [facility], positive specimens may be sent for additional [...] management guidance information are available at [facility] CDC Coronavirus Disease 2019 (COVID-19) webpage under Information fo r Healthcare Professionals (https://www.cdc.gov/coronavirus/2019-nc ov/hcp/index.html) Additional information about this and ot her EUA tests can be found in provider and patient fact sheets at the following FDA website: https://www.fda.gov/medical-devices/fmtbthqtjdq-wprrnxi-7199-ursjp-63-frernrfxn- xph-wginalymflletm-sxvojas-devices/dwuam-nqctmzdcniu-evax SARS-Cov-2 RNA Source GEOPHYSICAL ENGINEER Swab [facility] Specimen (Source) Anatomical Collection Method Collection Time Re ceived Time Location / / Volume Laterality Nasopharyngeal Swab 12/11/2021 10:13 11/23 AM EDT 11:16 AM EDT Comment: Symptoms->Surveillance Resulting Agency Comment Spec In Lab Iker Cuevas MD MICROBIOLOGY - GENERAL ORDER [place] Performing Organization Address City/State/[place] [address] POCT Glucose (12/11/2021 7:34 AM EDT) P athologist Signature POC Glucose 198 65 - 199 [facility] mg/dL [facility] Comment: Supplemental ranges: <140 mg/dL before meals <180 mg/dL all other times of the day Specimen Anatomical Collection Method Collection Time Receive d Time (Source) Location / / Volume Laterality Blood 12/11/2021 7:34 AM 2 7:34 EDT AM EDT Iker Cuevas MD POINT OF CARE TEST ORDERABLE S Performing Organization Address City/State/[place] [address] (ABNORMAL) POCT Glucose (12/11/2021 5:07 AM EDT) P athologist Signature POC Glucose 208 (H) 65 - [address] [facility] mg/dL [facility] Comment: Supplemental ranges: <140 mg/dL before meals <180 mg/dL all other times of the day Specimen Anatomical Collection Method Collection Time Receive d Time (Source) Location / / Volume Laterality Blood 12/11/2021 5:07 AM 2 5:07 EDT AM EDT Iker Cuevas MD POINT OF CARE TEST ORDERABLE S Performing Organization Address City/State/[place] [address] (ABNORMAL) Differential, Automated (12/11/2021 4:28 AM EDT) Patholo gist Method Time Signature Neutrophils % 79.6 % [facility] Neutr Abs (ANC) 7.01 (H) 1.70 - [facility] 6.10 [facility] x10(3)/[facility] LABORATORY Lymphocytes % 9.1 % [facility] Lymphocytes Abs 0.8 (L) 0.9 - 3.2 [facility] x10(3)/[facility] LABORATORY Monocytes % 9.2 % [facility] Monocyte Abs 0.8 0.3 - 0.9 [facility] x10(3)/[facility] LABORATORY Eosinophils % 1.3 % [facility] Eosinophils Abs 0.1 0.0 - 0.4 [facility] x10(3)/[facility] LABORATORY Basophils % 0.5 % [facility] Basophils Abs 0.0 0.0 - 0.1 [facility] x10(3)/[facility] LABORATORY Immature Gran % 0.30 [...] Abs 0.03 0.00 - 0.04 x10(3)/[facility] MAR Y [facility] LABORATORY Specimen Anatomical Collection Method Collection Time Receive d Time (Source) Location / / Volume Laterality Blood 12/11/2021 4:28 AM 4:37 EDT AM EDT Resulting Agency Comment Spec In Lab Bijan Sun MD HEMATOLOGY ORDERABLES Performing Organization Address City/State/ZIP Code Phon e Number [place] [id number] (ABNORMAL) Hemogram (12/11/2021 4:28 AM EDT) Analysis Performed At Patho logist Time Signature WBC 8.8 4.0 - 9.5 [facility] x10(3)/[facility] [place] [facility] LABORATORY RBC 4.15 (L) 4.58 - [place] 5.54 [facility] x10(6)/[facility] LABORATORY Hemoglobin 11.9 (L) 13.7 - [facility] 16.5 g/dL [facility] Hematocrit 36.9 (L) 40.5 - [facility] 48.5 % [facility] MCV 88.9 82.9 - [facility] 93.1 [facility] LABORATORY MCH 28.7 27.5 - [place] 32.1 pg [facility] MCHC 32.2 32.0 - [facility] 35.7 g/dL [facility] Platelets 211 145 - 357 [facility] x10(3)/[facility] [place] [facility] LABORATORY RDWSD 48.3 (H) 36.0 - [facility] 45.0 [facility] LABORATORY RDWCV 14.8 (H) 11.4 - [facility] 13.8 % [facility] MPV 9.6 7.6 - 12.9 [facility] LABORATORY nRBC % Auto 0.0 % [facility] nRBC Abs Auto 0.000 0.000 - [facility] 0.000 [facility] x10(3)/[facility] LABORATORY Specimen Anatomical Collection Method Collection Time Receive d Time (Source) Location / / Volume Laterality Blood 12/11/2021 4:28 AM 2 4:37 EDT AM EDT Resulting Agency Comment Spec In Lab Bijan Sun MD HEMATOLOGY ORDERABLES Performing Organization Address City/[facility]/[place]IP [facility] [place] [address] (ABNORMAL) Prothrombin Time (12/11/2021 4:28 AM EDT) P athologist Signature PT 17.7 (H) 9.4 - 12.5 [facility] LABORATORY INR 1.6 [facility] LABORATORY [...] City/[facility]/ZIP [place] [address] (ABNORMAL) BMP w/fasting Glucose (12/11/2021 4:28 AM EDT) P athologist Signature Glucose 207 (H) 65 - 99 [facility] Fasting mg/dL [facility] LABORATORY Comment: ?Fasting* Glucose Interpretive [...] LABORATORY Creatinine 1.43 0.80 - 1.50 mg/dL [facility] [...] City/[facility]/[place] [address] Magnesium (12/11/2021 4:28 AM EDT) athologist Signature Magnesium 1.04 0.69 - 1.07 [facility]/L [facility] LABORATORY Specimen Anatomical Collection Method Collection Time Receive d Time (Source) Location / / Volume Laterality Blood 12/11/2021 4:28 AM 2 4:37 EDT AM EDT Resulting Agency Comment Spec In Lab Iker Cuevas MD CHEMISTRY ORDERABLES Performing Organization Address City/[facility]/ZIP Code Phon e Number [address] POCT Glucose (12/11/2021 3:58 AM EDT) athologist Signature POC Glucose 189 65 - 199 [place] mg/dL [facility] LABORATORY Comment: Supplemental ranges: <140 mg/dL before meals <180 mg/dL all other times of the day Specimen Anatomical Collection Method Collection Time Receive d Time (Source) Location / / Volume Laterality Blood 12/11/2021 3:58 AM 2 3:58 EDT AM EDT Iker Cuevas MD POINT OF CARE TEST ORDERABLE S Performing Organization Address City/[facility]/[place] [address] (ABNORMAL) POCT Glucose (12/10/2021 11:45 PM EDT) athologist Signature POC Glucose 205 (H) 65 - 199 [facility] mg/dL [facility] LABORATORY Comment: Supplemental ranges: <140 mg/dL before meals <180 mg/dL all other times of the day Specimen Anatomical Collection Method Collection Time Receive d Time (Source) Location / / Volume Laterality Blood 12/10/2021 11:45 12/10/2021 PM EDT 11:45 PM EDT Iker Cuevas MD POINT OF CARE TEST ORDERABLE S Performing Organization Address City/[facility]/[place] [address] (ABNORMAL) POCT Glucose (12/10/2021 7:54 PM EDT) athologist Signature POC Glucose 225 (H) 65 - [address] [facility] LABORATORY Comment: Supplemental ranges: <140 mg/dL before meals <180 mg/dL all other times of the day Specimen Anatomical Collection Method Collection Time Receive d Time (Source) Location / / Volume Laterality Blood 12/10/2021 7:54 PM 2 7:54 EDT PM EDT Iker Cuevas MD POINT OF CARE TEST ORDERABLE S Performing Organization Address City/[facility]/[place] [address] Potassium (12/10/2021 7:46 PM EDT) athologist [facility] Potassium 4.2 3.5 - 5.0 [facility] mmol/L [facility] LABORATORY Comment: Please note: ??Patients [...] ORDERABLES Performing Organization Address City/[facility]/[place]IP [facility] [place] [address] (ABNORMAL) Basic Metabolic Panel (non-fasting) (12/10/2021 6:12 PM EDT) athologist Signature Glucose Lvl 246 (H) 65 - 199 [facility] mg/dL [facility] LABORATORY Comment: Diabetes: >=200 mg/dL plus symp toms BUN 50 (H) 10 - 20 mg/dL [facility] LABORATORY Creatinine 1.39 0.80 - 1.50 mg/dL [facility] [...] Address City/State/ZIP Code Phon e Number [address] POCT Glucose (12/10/2021 4:59 PM EDT) P athologist Signature POC Glucose 158 65 - [address] [facility]/dL [facility] LABORATORY Comment: Supplemental ranges: <140 mg/dL before meals <180 mg/dL all other times of the day Specimen Anatomical Collection Method Collection Time Receive d Time (Source) Location / / Volume Laterality Blood 12/10/2021 4:59 PM 2 4:59 EDT PM EDT Iker Cuevas MD POINT OF CARE TEST ORDERABLE S Performing Organization Address City/State/[place] [address] (ABNORMAL) POCT Glucose (12/10/2021 12:43 PM EDT) P athologist Signature POC Glucose 241 (H) 65 - [address] [facility] mg/dL [facility] LABORATORY Comment: Supplemental ranges: <140 mg/dL before meals <180 mg/dL all other times of the day Specimen Anatomical Collection Method Collection Time Receive d Time (Source) Location / / Volume Laterality Blood 12/10/2021 12:43 12/10/2021 PM EDT 12:43 PM EDT Iker Cuevas MD POINT OF CARE TEST ORDERABLE S Performing Organization Address City/State/[place] [address] EKG 12 Lead (12/10/2021 11:17 AM EDT) Component Value Ref Range Test Analysis Performed Pathologis t Method Time At Signature Ventricular rate 62 BPM MUSE SYSTEM Atrial Rate 62 BPM MUSE SYSTEM P-R Interval 142 ms MUSE SYSTEM QRS Duration 100 ms MUSE SYSTEM Q-T Interval 434 ms MUSE SYSTEM QTC Calculated 440 ms MUSE SYSTEM (Bezet) Calculated P Ulm 34 degrees MUSE SYSTEM Calculated R Ulm -39 degrees MUSE SYSTEM Calculated T Ulm 92 degrees MUSE SYSTEM INTERPRETATION Normal sinus rhythm MUSE SYSTEM Left axis deviation Minimal voltage criteria for LVH, may be normal variant ( Western product ) Cannot rule out Inferior infarct [...] Narrative 12/10/2021 12:04 PM EDT ?[facility] ? Cardiac Cathete rization/Intervention Report ? Patient Name: Don FatimaMadiha ? Procedure Date: 12/10/2021 ? A #: [id number] ? Primary Physician: Nobles, Vitaliy P ? Case #: [id number] ? File Name: [id number] ? Catheterization Order Number: [id number] ? [facility] ? Final Report [place], [place] ? Patient Name: ? Don E. Stewa rt ? ID#: ?[id number] ? : ?1945 ? Procedure Date: ? [...] for ?the dental laboratory technician visit is ACS great er [...] ?3.75 guiding catheter and a 3.5 Fr [facility] [place] 20 Mhz using Manual ?pullback. ??Imaging was [...] ?3.75 guiding catheter and a 3.5 Fr [facility] [place] 20 Mhz using Manual ?pullback. ??Imaging was [...] ?modification of this regimen. C [facility] Interventional Cardiology for ?questions. ?The [...] Vitaliy Nobles MD - 01/14/2022 [facility] Cardiac Catheterization/Intervention Re port Patient Name: Don Fatima Procedure Date: 12/10/2021 A #: [id number] Primary Physician: Vitaliy Nobles Case #: [id number] File Name: [id number] Catheterization Order Number: [id number] [facility] Final Report [place], [place] Patient Name: Don Fatima ID#: [...] Urgent. The indication for the dental laboratory technician visit is ACS greater than [...] a 3.5 Fr [facility] [place] 20 Mhz using Manual pullback. Imaging was [...] a 3.5 Fr [facility] [place] 20 Mhz using Manual pullback. Imaging was [...] Glucose 262 (H) 65 - 199 [facility] mg/dL [facility] LABORATORY Comment: Supplemental ranges: <140 mg/dL before meals <180 mg/dL all other times of the day Specimen Anatomical Collection Method Collection Time Receive d Time (Source) Location / / Volume Laterality Blood 12/10/2021 10:30 12/10/2021 AM EDT 10:30 AM EDT Iker Cuevas MD POINT OF CARE TEST ORDERABLE S Performing Organization Address City/State/[place] [address] (ABNORMAL) POCT Glucose (12/10/2021 9:48 AM EDT) athologist Signature POC Glucose 279 (H) 65 - 199 [place] mg/dL [facility] LABORATORY Comment: Supplemental ranges: <140 mg/dL before meals <180 mg/dL all other times of the day Specimen Anatomical Collection Method Collection Time Receive d Time (Source) Location / / Volume Laterality Blood 12/10/2021 9:48 AM 2 9:48 EDT AM EDT Iker Cuevas MD POINT OF CARE TEST ORDERABLE S Performing Organization Address City/[facility]/[place] [address] (ABNORMAL) POCT Glucose (12/10/2021 9:07 AM EDT) P athologist Signature POC Glucose 268 (H) 65 - 199 [place] mg/dL [facility] LABORATORY Comment: Supplemental ranges: <140 mg/dL before meals <180 mg/dL all other times of the day Specimen Anatomical Collection Method Collection Time Receive d Time (Source) Location / / Volume Laterality Blood 12/10/2021 9:07 AM 2 9:07 EDT AM EDT Iker Cuevas MD POINT OF CARE TEST ORDERABLE S Performing Organization Address City/State/[place] [address] (ABNORMAL) Point of Care Blood Gas Historical (12/10/2021 9:04 AM EDT) [facility] gist Method Time Signature POC pH 7.40 7.35 - [place] 7.45 [facility] LABORATORY POC PCO2 40 35 - 45 [facility] LABORATORY POC PO2 63 (L) 85 - 104 [facility] LABORATORY POC Base Excess 0.0 -3.0 - 3.0 [facility] K mmol/L [facility] LABORATORY POC HCO3 24.8 20.0 - [facility] 26.0 [facility] Sodium 143 135 - 145 [facility] mmol/L [facility] LABORATORY POC Potassium 3.7 3.5 - 5.0 [facility] mmol/L [facility] LABORATORY POC Ionized Ca 1.07 (L) 1.15 - [facility] 1.33 [facility] POC Hematocrit 30.0 (L) 40.0 - [facility] 51.0 % [facility] POC Calc Hgb 10.2 (L) 13.7 - [facility] 17.5 g/dL [facility] LABORATORY Comment: The calculation of hemoglobin f rom hematocrit assumes a normal MCHC. POC Bgas Loc CC LAB [facility] LABORATORY Specimen Anatomical Collection Method Collection Time Receive d Time (Source) Location / / Volume Laterality Blood 12/10/2021 9:04 AM 2 EDT 12:00 PM EDT Ifeanyi Truong MD CHEMISTRY ORDERABLES Performing Organization Address City/State/[place] [address] (ABNORMAL) POCT Glucose (12/10/2021 7:19 AM EDT) P athologist Signature POC Glucose 274 (H) 65 - 199 [facility] mg/dL [facility] LABORATORY Comment: Supplemental ranges: <140 mg/dL before meals <180 mg/dL all other times of the day Specimen Anatomical Collection Method Collection Time Receive d Time (Source) Location / / Volume Laterality Blood 12/10/2021 7:19 AM 2 7:19 EDT AM EDT Iker Cuevas MD POINT OF CARE TEST ORDERABLE S Performing Organization Address City/State/[place] [address] Heparin (unfractionated) Level (12/10/2021 [...] Organization Address City/State/ZIP Code Phon e Number [place] [id number] (ABNORMAL) Differential, Automated (12/10/2021 4:25 AM EDT) Patholo gist Method Time Signature Neutrophils % 79.8 % [facility] LABORATORY Neutr Abs (ANC) 7.47 (H) 1.70 - [facility] 6.10 [facility] x10(3)/[facility] L LABORATORY Lymphocytes % 10.6 % [facility] LABORATORY Lymphocytes Abs 1.0 0.9 - 3.2 [facility] x10(3)/[facility] LABORATORY Monocytes % 8.4 % [facility] LABORATORY Monocyte Abs 0.8 0.3 - 0.9 [facility] x10(3)/[facility] LABORATORY Eosinophils % 0.6 % [facility] LABORATORY Eosinophils Abs 0.1 0.0 - 0.4 [facility] x10(3)/[facility] LABORATORY Basophils % 0.2 % [facility] LABORATORY Basophils Abs 0.0 0.0 - 0.1 [facility] x10(3)/[facility] LABORATORY Immature Gran % 0.40 [...] Abs 0.04 0.00 - 0.04 x10(3)/[facility] MAR Y [facility] LABORATORY Specimen Anatomical Collection Method Collection Time Receive d Time (Source) Location / / Volume Laterality Blood 12/10/2021 4:25 AM 4:34 EDT AM EDT Resulting Agency Comment Spec In Lab Morgan BROWN HEMATOLOGY ORDERABLES Performing Organization Address City/State/ZIP [place] [address] (ABNORMAL) Hemogram (12/10/2021 4:25 AM EDT) Analysis Performed At Patho logist Time Signature WBC 9.4 4.0 - 9.5 [facility] x10(3)/[facility] [place] [facility] LABORATORY RBC 3.81 (L) 4.58 - [facility] 5.54 [facility] x10(6)/[facility] LABORATORY Hemoglobin 11.1 (L) 13.7 - [facility] 16.5 g/dL [facility] LABORATORY Hematocrit 34.0 (L) 40.5 - [facility] 48.5 % [facility] LABORATORY MCV 89.2 82.9 [facility] 93.1 [facility] LABORATORY MCH 29.1 27.5 [facility] 32.1 pg [facility] LABORATORY MCHC 32.6 32.0 - [facility] 35.7 g/dL [facility] LABORATORY Platelets 183 145 - 357 [facility] x10(3)/[facility] [place] [facility] LABORATORY RDWSD 49.9 (H) 36.0 - [facility] 45.0 [facility] LABORATORY RDWCV 15.2 (H) 11.4 - [facility] 13.8 % [facility] LABORATORY MPV 9.8 7.6 - 12.9 [facility] LABORATORY nRBC % Auto 0.0 % [facility] LABORATORY nRBC Abs Auto 0.000 0.000 - [place] [facility] 0.000 [facility] x10(3)/[facility] LABORATORY Specimen Anatomical Collection Method Collection Time Receive d Time (Source) Location / / Volume Laterality Blood 12/10/2021 4:25 AM 2 4:34 EDT AM EDT Resulting Agency Comment Spec In Lab Morgan BROWN HEMATOLOGY ORDERABLES Performing Organization Address City/[facility]/ZIP Code Phon e Number [address] (ABNORMAL) Prothrombin Time (12/10/2021 4:25 AM EDT) P athologist Signature PT 20.0 (H) 9.4 - 12.5 [facility] LABORATORY INR 1.7 [facility] LABORATORY [...] City/[facility]/[place] [address] (ABNORMAL) BMP w/fasting Glucose (12/10/2021 4:25 AM EDT) P athologist Signature Glucose 210 (H) 65 - 99 [facility] Fasting mg/dL [facility] LABORATORY Comment: ?Fasting* Glucose Interpretive [...] Creatinine 1.52 (H) 0.80 - 1.50 mg/dL [facility] Address City/State/[place] [address] Magnesium (12/10/2021 4:25 AM EDT) athologist Signature Magnesium 0.95 0.69 - 1.07 [place] mmol/L [facility] LABORATORY Specimen Anatomical Collection Method Collection Time Receive d Time (Source) Location / / Volume Laterality Blood 12/10/2021 4:25 AM 2 4:34 EDT AM EDT Resulting Agency Comment Spec In Lab Iker Cuevas MD CHEMISTRY ORDERABLES Performing Organization Address City/[facility]/[place] [address] POCT Glucose (12/10/2021 1:58 AM EDT) athologist Signature POC Glucose 164 65 - 199 [place] mg/dL [facility] LABORATORY Comment: Supplemental ranges: <140 mg/dL before meals <180 mg/dL all other times of the day Specimen Anatomical Collection Method Collection Time Receive d Time (Source) Location / / Volume Laterality Blood 12/10/2021 1:58 AM 2 1:58 EDT AM EDT Iker Cuevas MD POINT OF CARE TEST ORDERABLE S Performing Organization Address City/[facility]/ZIP Code Phon e Number [address] (ABNORMAL) POCT Glucose (12/09/2021 9:02 PM EDT) athologist Signature POC Glucose 313 (H) 65 - 199 [place] mg/dL [facility] LABORATORY Comment: Supplemental ranges: <140 mg/dL before meals <180 mg/dL all other times of the day Specimen Anatomical Collection Method Collection Time Receive d Time (Source) Location / / Volume Laterality Blood 12/09/2021 9:02 PM 2 9:02 EDT PM EDT Iker Cuevas MD POINT OF CARE TEST ORDERABLE S Performing Organization Address City/[facility]/[place] [address] Heparin (unfractionated) Level (12/09/2021 [...] Organization Address City/State/[place] [address] (ABNORMAL) Basic Metabolic Panel (non-fasting) (12/09/2021 7:30 PM EDT) athologist Signature Glucose Lvl 372 (H) 65 - [address] [facility] mg/dL [facility] LABORATORY Comment: Diabetes: >=200 mg/dL plus symp toms BUN 56 (H) 10 - 20 mg/dL [facility] LABORATORY Creatinine 1.75 (H) 0.80 - 1.50 mg/dL [facility] [...] Organization Address City/State/[place] [address] (ABNORMAL) POCT Glucose (12/09/2021 6:34 PM EDT) athologist Signature POC Glucose 408 (H) 65 - 199 [place] [facility] mg/dL [facility] LABORATORY Comment: Supplemental ranges: <140 mg/dL before meals <180 mg/dL all other times of the day Specimen Anatomical Collection Method Collection Time Receive d Time (Source) Location / / Volume Laterality Blood 12/09/2021 6:34 PM 2 6:34 EDT PM EDT Iker Cuevas MD POINT OF CARE TEST ORDERABLE S Performing Organization Address City/State/[place] [address] (ABNORMAL) POCT Glucose (12/09/2021 6:32 PM EDT) athologist Signature POC Glucose 356 (H) 65 - [address] [facility] mg/dL [facility] LABORATORY Comment: Supplemental ranges: <140 mg/dL before meals <180 mg/dL all other times of the day Specimen Anatomical Collection Method Collection Time Receive d Time (Source) Location / / Volume Laterality Blood 12/09/2021 6:32 PM 2 6:32 EDT PM EDT Iker Cuevas MD POINT OF CARE TEST ORDERABLE S Performing Organization Address City/[facility]/[place] [address] (ABNORMAL) POCT Glucose (12/09/2021 4:19 PM EDT) athologist Signature POC Glucose 347 (H) 65 - [address] [facility] mg/dL [facility] LABORATORY Comment: Supplemental ranges: <140 mg/dL before meals <180 mg/dL all other times of the day Specimen Anatomical Collection Method Collection Time Receive d Time (Source) Location / / Volume Laterality Blood 12/09/2021 4:19 PM 2 4:19 EDT PM EDT Iker Cuevas MD POINT OF CARE TEST ORDERABLE S Performing Organization Address City/State/[place] [address] Heparin (unfractionated) Level (12/09/2021 [...] Address City/State/[place] [address] (ABNORMAL) POCT Glucose (12/09/2021 12:02 PM EDT) athologist Signature POC Glucose 235 (H) 65 - [address] [facility] mg/dL [facility] LABOR[facility]ORY Comment: Supplemental ranges: <140 mg/dL before meals <180 mg/dL all other times of the day Specimen Anatomical Collection Method Collection Time Receive d Time (Source) Location / / Volume Laterality Blood 12/09/2021 12:02 12/09/2021 PM EDT 12:02 PM EDT Iker Cuevas MD POINT OF CARE TEST ORDERABLE S Performing Organization Address City/State/[place] [address] (ABNORMAL) POCT Glucose (12/09/2021 9:44 AM EDT) athologist Signature POC Glucose 214 (H) 65 - 199 [place] [facility] mg/dL [facility] LABORATORY Comment: Supplemental ranges: <140 mg/dL before meals <180 mg/dL all other times of the day Specimen Anatomical Collection Method Collection Time Receive d Time (Source) Location / / Volume Laterality Blood 12/09/2021 9:44 AM 2 9:44 EDT AM EDT Iker Cuevas MD POINT OF CARE TEST ORDERABLE S Performing Organization Address City/[facility]/Z[place] [address] EKG 12 Lead (12/09/2021 7:57 AM EDT) Component Value Ref Range Test Analysis Performed Pathologis t Method Time At Signature Ventricular rate 101 BPM MUSE SYSTEM Atrial Rate 101 BPM MUSE SYSTEM P-R Interval 150 ms MUSE SYSTEM QRS Duration 112 ms MUSE SYSTEM Q-T Interval 364 ms MUSE SYSTEM QTC Calculated 471 ms MUSE SYSTEM (Bezet) Calculated P Ulm 59 degrees MUSE SYSTEM Calculated R Ulm -42 degrees MUSE SYSTEM Calculated T Ulm 102 degrees MUSE SYSTEM INTERPRETATION Sinus tachycardia Occasional Premature ventricular com plexes MUSE SYSTEM Left axis deviation 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 mg/dL [facility] LABOR[facility]ORY Comment: Supplemental ranges: <140 mg/dL before meals <180 mg/dL all other times of the day Specimen Anatomical Collection Method Collection Time Receive d Time (Source) Location / / Volume Laterality Blood 12/09/2021 7:28 AM 2 7:28 EDT AM EDT Iker Cuevas MD POINT OF CARE TEST ORDERABLE S Performing Organization Address City/State/ZIP Code Phon e Number [place] [phone] HOSP[address] LAB[address]ORY Drive (ABNORMAL) Hemoglobin A1c (12/09/2021 [...] Mellitus, Diabetes Care 2013; 36: Suppl. 1, B47-98 Est Avg Gluc See note mg/dL [facility] [...] into estimated average glucose values. ??Diabetes Care 2008:31(8):0913-5128. Specimen Anatomical Collection Method Collection Time Receive d Time (Source) Location / / Volume Laterality Blood Venous Draw / 12/09/2021 6:18 AM 12/10/19 22 Unknown EDT 12:24 PM EDT Resulting Agency Comment Spec In Lab Migdalia BROWN CHEMISTRY ORDERABLES Performing Organization Address [facility] [place] [address] (ABNORMAL) Prothrombin Time (12/09/2021 6:18 AM EDT) athologist Signature PT 26.6 (H) 9.4 - 12.5 [facility] LABORATORY INR 2.3 [facility] LABORATORY [...] Migdalia BROWN HEMATOLOGY ORDERABLES Performing Organization Address [facility] [place] [address] Heparin (unfractionated) Level (12/09/2021 [...] Organization Address City/State/[place] [address] (ABNORMAL) Differential, Automated (12/09/2021 6:18 AM EDT) [facility] Method Time Signature Neutrophils % 91.5 % [facility] LABORATORY Neutr Abs (ANC) 15.78 (H) 1.70 - [facility] 6.10 [facility] x10(3)/[facility] LABORATORY Lymphocytes % 2.9 % [facility] LABORATORY Lymphocytes Abs 0.5 (L) 0.9 - 3.2 [facility] x10(3)/[facility] LABORATORY Monocytes % 4.9 % [facility] LABORATORY Monocyte Abs 0.8 0.3 - 0.9 [facility] x10(3)/[facility] LABORATORY Eosinophils % 0.0 % [facility] LABORATORY Eosinophils Abs 0.0 0.0 - 0.4 [facility] x10(3)/[facility] LABORATORY Basophils % 0.2 % [facility] LABORATORY Basophils Abs 0.0 0.0 - 0.1 [facility] x10(3)/[facility] LABORATORY Immature Gran % 0.50 [...] Organization Address City/State/ZIP Code Phon e Number [place] [id number] (ABNORMAL) Hemogram (12/09/2021 6:18 AM EDT) Analysis Performed At Patho logist Time Signature WBC 17.2 (H) 4.0 - 9.5 [facility] x10(3)/[facility] [place] [facility] LABORATORY RBC 4.32 (L) 4.58 - [facility] 5.54 [facility] x10(6)/[facility] LABORATORY Hemoglobin 12.6 (L) 13.7 [facility] 16.5 g/dL [facility] LABORATORY Hematocrit 38.9 (L) 40.5 - [facility] 48.5 % [facility] MCV 90.0 82.9 - [facility] 93.1 [facility] LABORATORY MCH 29.2 27.5 - [facility] 32.1 pg [facility]ORY MCHC 32.4 32.0 - [facility] 35.7 g/dL [facility]ORY Platelets 193 145 - 357 [facility] x10(3)/[facility] [place] [facility] LABORATORY RDWSD 50.4 (H) 36.0 - [facility] 45.0 [facility] LABORATORY RDWCV 15.2 (H) 11.4 - [facility] 13.8 % [facility] LABORATORY MPV 9.5 7.6 - 12.9 [facility] LABORATORY nRBC % Auto 0.0 % [facility] LABORATORY nRBC Abs Auto 0.000 0.000 - [facility] 0.000 [facility] x10(3)/[facility] LABORATORY Specimen Anatomical Collection Method Collection Time Receive d Time (Source) Location / / Volume Laterality Blood 12/09/2021 6:18 AM 6:33 EDT AM EDT Resulting Agency Comment Spec In Lab Morgan BROWN HEMATOLOGY ORDERABLES Performing Organization Address City/State/[place] [address] Lipid Panel (Reflex Direct LDL) (12/09/2021 6:18 AM EDT) athologist Signature Chol, Total 105 mg/dL [facility] LABORATORY Comment: Lower Risk: <200 mg/dL Average Risk: 200-239 mg/dL Higher Risk: >zm=167 mg/dL Triglycerides 133 mg/dL [facility] LABORATORY Comment: Average Risk/Lower Risk: <150 mg/dL Borderline High Risk: 150-199 mg/dL High Risk: 200-499 mg/dL Very High Risk: >lz=571 mg/dL HDL 42 mg/dL [facility] LABORATORY Comment: Males: ?? Higher Risk: <40 mg/dL Females: ?? Higher Risk: <50 mg/dL LDL Cholesterol 36 mg/dL [facility] LABORATORY Comment: Lowest Risk: <100 mg/dL Lower Risk: 100-129 mg/dL Borderline High Risk: 130-159 mg/dL High Risk: 160-189 mg/dL Very High Risk: >es=230 mg/dL Chol/HDL Ratio 2.5 ratio [facility] LABORATORY Lipid Interpretation See Note [facility] LABORATORY Comment: Lipid management should be guided by a p atient? s ASCVD risk, goals and preferences. ACC/AHA Guidelines recommend high intens ity statin if clinical ASCVD or LDL greater than or equal to 190 mg/dL. http://tinyurl.com/LLI-MRN-Dkutpanfx Adults aged 40-75 with LDL 70-189 mg/dL should have their 10 year ASCVD risk estimated with the ACC/AHA ASCVD risk es timator http://tools.acc.org/ATNBC-Bxen-Gzefouhn r/ Statin should be discussed if risk [...] City/[facility]/ZIP Code Phon e Number [address] TSH (12/09/2021 6:18 AM EDT) P athologist Signature TSH 1.60 0.27 - 4.20 [facility] mcIU/mL [facility] LABORATORY Comment: Reference Interval (mcIU/mL): Females: ??First Trimester: 0.23-3.88 ??Second Trimester: 0.22-3.90 ??Third Trimester: 0.44-4.66 Specimen Anatomical Collection Method Collection Time Receive d Time (Source) Location / / Volume Laterality Blood 12/09/2021 6:18 AM 2 6:33 EDT AM EDT Resulting Agency Comment Spec In Lab Iker Cuevas MD CHEMISTRY ORDERABLES Performing Organization Address City/[facility]/[place] [address] Hepatic Function Panel (12/09/2021 6:18 AM EDT) P athologist Signature Total Protein 7.3 6.1 - 8.0 [facility] g/dL [facility] Albumin 4.2 3.2 - 5.2 [facility] g/dL [facility] AST 25 0 - 39 [facility] unit/L [facility] ALT 15 0 - 55 [facility] unit/L [facility] Alk Phos 75 40 - 130 [facility] unit/L [facility] Total 1.1 0.2 - 1.3 [facility] Bilirubin mg/dL [facility] Bili, Direct 0.2 0.0 - 0.3 [facility] mg/dL [facility]ORY Specimen Anatomical Collection Method Collection Time Receive d Time (Source) Location / / Volume Laterality Blood 12/09/2021 6:18 AM 6:33 EDT AM EDT Resulting Agency Comment Spec In Lab Iker Cuevas MD CHEMISTRY ORDERABLES Performing Organization Address City/State/[place] [address] (ABNORMAL) BMP w/fasting Glucose (12/09/2021 6:18 AM EDT) athologist Signature Glucose 235 (H) 65 - 99 [facility] Fasting mg/dL [facility] Comment: ?Fasting* Glucose Interpretive [...] City/[facility]/ZIP Code Phon e Number [address] Magnesium (12/09/2021 6:18 AM EDT) P athologist Signature Magnesium 0.81 0.69 - 1.07 [facility] mmol/L [facility] LABORATORY Specimen Anatomical Collection Method Collection Time Receive d Time (Source) Location / / Volume Laterality Blood 12/09/2021 6:18 AM 2 6:33 EDT AM EDT Resulting Agency Comment Spec In Lab Iker Cuevas MD CHEMISTRY ORDERABLES Performing Organization Address City/[facility]/ZIP Code Phon e Number [address] (ABNORMAL) Troponin (12/09/2021 6:18 AM EDT) P athologist Signature Troponin-T 1.13 (H) 0.00 - [facility] 0.00 ng/mL [facility] LABOR[facility]ORY Comment: The 99th percentile [...] additional sample may be indicated. Reference: [place] Definition of Myocardial Infarction. Journal of the [place] College of Cardiology 2012;60:1581-98 Specimen Anatomical Collection Method Collection Time Receive d Time (Source) Location / / Volume Laterality Blood 12/09/2021 6:18 AM 6:33 EDT AM EDT Resulting Agency Comment Spec In Lab Iker Cuevas MD CHEMISTRY ORDERABLES Performing Organization Address City/State/ZIP Code Phon e Number [place] [address] XR Chest One View [...] who have questions please contact the health field care coordinator that requested your imaging first. [...] ho have questions please contact the health field care coordinator that requested your imaging first. Amber Sanches MD IMG DX ORDERABLES (ABNORMAL) BLOOD GAS 2 ARTERIAL (12/09/2021 5:14 AM EDT) Analysis Performed At Patho logist Time Signature pH Art 7.43 7.35 - [facility] 7.45 [facility] pCO2 Art 36 35 - 45 [facility] mmHg [facility] pO2 Art 67 (L) 85 - 104 [facility] LABORATORY HCO3 Art 23.4 20.0 - [facility] 26.0 [facility] mmol/[facility] LABORATORY BE Art -0.9 -3.0 - 3.0 [facility] mmol/L [facility] Hgb Blood Gas 13.2 (L) 13.7 - [facility] 16.5 g/dL [facility] O2HB Art 91.3 (L) 94.0 - [facility] 97.0 % [facility] COHB Art 0.4 % [facility] FIO2 Art 35 % [place] [...] CHEMISTRY ORDERABLES Performing Organization Address City/[facility] [place] [address] POCT Glucose (12/09/2021 4:46 AM EDT) P athologist Signature POC Glucose 198 65 - [facility] mg/dL [facility] Comment: Supplemental ranges: <140 mg/dL before meals <180 mg/dL all other times of the day Specimen Anatomical Collection Method Collection Time Receive d Time (Source) Location / / Volume Laterality Blood 12/09/2021 4:46 AM 2 4:46 EDT AM EDT Iker Cuevas MD POINT OF CARE TEST ORDERABLE S Performing Organization Address City/[facility]/[place] [address] (ABNORMAL) POCT Glucose (12/09/2021 3:01 AM EDT) P athologist Signature POC Glucose 225 (H) 65 - [address] [facility] mg/dL [facility] Comment: Supplemental ranges: <140 mg/dL before meals <180 mg/dL all other times of the day Specimen Anatomical Collection Method Collection Time Receive d Time (Source) Location / / Volume Laterality Blood 12/09/2021 3:01 AM 2 3:01 EDT AM EDT Iker Cuevas MD POINT OF CARE TEST ORDERABLE S Performing Organization Address City/State/[place] [address] (ABNORMAL) POCT Glucose (12/08/2021 10:55 PM EDT) athologist Signature POC Glucose 327 (H) 65 - 199 [facility] mg/dL [facility] Comment: Supplemental ranges: <140 mg/dL before meals <180 mg/dL all other times of the day Specimen Anatomical Collection Method Collection Time Receive d Time (Source) Location / / Volume Laterality Blood 12/08/2021 10:55 12/08/2021 PM EDT 10:55 PM EDT Iker Cuevas MD POINT OF CARE TEST ORDERABLE S Performing Organization Address City/[facility]/[place] [address] Heparin (unfractionated) Level (12/08/2021 [...] Address City/State/[place] [address] (ABNORMAL) Troponin (12/08/2021 10:03 PM EDT) athologist Signature Troponin-T 0.92 (H) 0.00 - [facility] 0.00 ng/mL [facility] Comment: The 99th percentile [...] additional sample may be indicated. Reference: [place] Definition of Myocardial Infarction. Journal of the [place] College of Cardiology 2012;60:1581-98 Specimen Anatomical Collection Method Collection Time Receive d Time (Source) Location / / Volume Laterality Blood 12/08/2021 10:03 12/08/2021 PM EDT 10:31 PM EDT Resulting Agency Comment Spec In Lab Iker Cuevas MD CHEMISTRY ORDERABLES Performing Organization Address City/State/ZIP Code Phon e Number [facility] [place] [address] (ABNORMAL) POCT Glucose (12/08/2021 8:22 PM EDT) athologist Signature POC Glucose 429 (H) 65 - 199 [facility] mg/dL [facility]OR[facility] Comment: Supplemental ranges: <140 mg/dL before meals <180 mg/dL all other times of the day Specimen Anatomical Collection Method Collection Time Receive d Time (Source) Location / / Volume Laterality Blood 12/08/2021 8:22 PM 2 8:22 EDT PM EDT Iker Cuevas MD POINT OF CARE TEST ORDERABLE S Performing Organization Address City/[facility]/ZIP Code Phon e Number [address] (ABNORMAL) POCT Glucose (12/08/2021 7:06 PM EDT) athologist Signature POC Glucose 442 (H) 65 - [address] [facility] mg/dL [facility] Comment: Supplemental ranges: <140 mg/dL before meals <180 mg/dL all other times of the day Specimen Anatomical Collection Method Collection Time Receive d Time (Source) Location / / Volume Laterality Blood 12/08/2021 7:06 PM 2 7:06 EDT PM EDT Iker Cuevas MD POINT OF CARE TEST ORDERABLE S Performing Organization Address City/[facility]/[place] [address] Magnesium (12/08/2021 6:02 PM EDT) athologist Signature Magnesium 0.86 0.69 - 1.07 [facility] mmol/L [facility] LABORATORY Specimen Anatomical Collection Method Collection Time Receive d Time (Source) Location / / Volume Laterality Blood 12/08/2021 6:02 PM 2 6:36 EDT PM EDT Resulting Agency Comment Spec In Lab Iker Cuevas MD CHEMISTRY ORDERABLES Performing Organization Address City/[facility]/[place] [address] (ABNORMAL) Basic Metabolic Panel (non-fasting) (12/08/2021 6:02 PM EDT) athologist Signature Glucose Lvl 392 (H) 65 - [address] [facility] mg/dL [facility] Comment: Diabetes: >=200 mg/dL plus symp toms BUN 41 (H) 10 - 20 mg/dL [facility] LABORATORY Creatinine 1.44 0.80 - 1.50 mg/dL [facility] [...] Organization Address City/State/[place] [address] (ABNORMAL) Differential, Automated (12/08/2021 6:02 PM EDT) [facility] gist Method Time Signature Neutrophils % 89.5 % [facility] LABORATORY Neutr Abs (ANC) 13.97 (H) 1.70 - [facility] 6.10 [facility] x10(3)/[facility] LABORATORY Lymphocytes % 3.7 % [facility] LABORATORY Lymphocytes Abs 0.6 (L) 0.9 - 3.2 [facility] x10(3)/[facility] LABORATORY Monocytes % 6.1 % [facility] LABORATORY Monocyte Abs 1.0 (H) 0.3 - 0.9 [facility] x10(3)/[facility] LABORATORY Eosinophils % 0.0 % [facility] LABORATORY Eosinophils Abs 0.0 0.0 - 0.4 [facility] x10(3)/[facility] LABORATORY Basophils % 0.2 % [facility] LABORATORY Basophils Abs 0.0 0.0 - 0.1 [facility] x10(3)/[facility] LABORATORY Immature Gran % 0.50 [...] Organization Address City/State/[place] [address] (ABNORMAL) Hemogram (12/08/2021 6:02 PM EDT) Analysis Performed At Patho logist Time Signature WBC 15.6 (H) 4.0 - 9.5 [facility] x10(3)/[facility] [place] [facility] LABORATORY RBC 4.05 (L) 4.58 - [facility] 5.54 [facility] x10(6)/[facility] LABORATORY Hemoglobin 11.8 (L) 13.7 - [facility] 16.5 g/dL [facility] LABORATORY Hematocrit 35.8 (L) 40.5 - [facility] 48.5 % [facility]ORATORY MCV 88.4 82.9 - [facility] 93.1 [facility] LABORATORY MCH 29.1 27.5 - [facility] 32.1 pg [facility]ORAT[facility] MCHC 33.0 32.0 - [facility] 35.7 g/dL [facility]OR[facility] Platelets 178 145 - 357 [facility] x10(3)/[facility] [place] [facility] LABORATORY RDWSD 49.3 (H) 36.0 - [facility] 45.0 [facility] LABORATORY RDWCV 15.1 (H) 11.4 - [facility] 13.8 % [facility] LABORATORY MPV 10.4 7.6 - 12.9 [facility] fL [facility] LABOR[facility] nRBC % Auto 0.0 % [facility] LABORATORY nRBC Abs Auto 0.000 0.000 - [facility] 0.000 [facility] x10(3)/[facility] LABORATORY Specimen Anatomical Collection Method Collection Time Receive d Time (Source) Location / / Volume Laterality Blood 12/08/2021 6:02 PM 6:36 EDT PM EDT Resulting Agency Comment Spec In Lab Morgan BROWN HEMATOLOGY ORDERABLES Performing Organization Address City/State/[place] [address] (ABNORMAL) Troponin (12/08/2021 6:02 PM EDT) P athologist Signature Troponin-T 0.89 (H) 0.00 - [facility] 0.00 ng/mL [facility] Comment: The 99th percentile [...] additional sample may be indicated. Reference: [place] Definition of Myocardial Infarction. Journal of the [place] College of Cardiology 2012;60:1581-98 Specimen Anatomical Collection Method Collection Time Receive d Time (Source) Location / / Volume Laterality Blood 12/08/2021 6:02 PM 6:36 EDT PM EDT Resulting Agency Comment Spec In Lab Iker Cuevas MD CHEMISTRY ORDERABLES Performing Organization Address City/State/ZIP Code Phon e Number [place] [id number] COVID-19 PCR (12/08/2021 5:00 PM EDT) [facility] Method Time Signature SARS-CoV-2 Not Detected [...] using the Simplexa COVID-19 Direct Assay by Seniorlink as authorized by the FDA issued Emergency [...] Department of Pathology and Laboratory Medicine at [facility], certified under the Clinical [...] fact sheets at the following FDA website: https://www.fda.gov/medical-devices/isbpuskdngc-bitanvb-7602-wiooi-11-fajhytivg- rgy-yuhpotowndfrhr-aliabkb-devices/eqbai-iwmhbzezxot-dlya SARS-CoV-2 Source GEOPHYSICAL ENGINEER Swab [facility] LABORATORY Specimen (Source) Anatomical Collection Method Collection Time Re ceived Time Location / / Volume Laterality Nasopharyngeal Swab 12/08/2021 5:00 12/08 PM EDT 6:03 PM EDT Comment: Symptoms->Surveillance Resulting Agency Comment Spec In Lab Iker Cuevas MD MICROBIOLOGY - GENERAL ORDER [place] Performing Organization Address City/State/[place] [address] EKG 12 Lead (12/08/2021 4:40 PM EDT) Component Value Ref Range Test Analysis Performed Pathologis t Method Time At Signature Ventricular rate 78 BPM MUSE SYSTEM Atrial Rate 78 BPM MUSE SYSTEM P-R Interval 152 ms MUSE SYSTEM QRS Duration 96 ms MUSE SYSTEM Q-T Interval 396 ms MUSE SYSTEM QTC Calculated 451 ms MUSE SYSTEM (Bezet) Calculated P Ulm 44 degrees MUSE SYSTEM Calculated R Ulm -31 degrees MUSE SYSTEM Calculated T Ulm 124 degrees MUSE SYSTEM INTERPRETATION Normal sinus [...] POC Glucose 400 (H) 65 - 199 [facility] mg/dL [facility] Comment: Supplemental ranges: <140 mg/dL before meals <180 mg/dL all other times of the day Specimen Anatomical Collection Method Collection Time Receive d Time (Source) Location / / Volume Laterality Blood 12/08/2021 4:34 PM 2 4:34 EDT PM EDT Iker Cuevas MD POINT OF CARE TEST ORDERABLE S Performing Organization Address City/State/[place] [address] documented in this encounter [...] Given 11/23 10:30 AM EDT 300 mcg (RELIGION INSTRUCTOR) ONCE PRN, Starting on Wed12/10/21 at 1030, [...] Sean ine 0.9) flush 5 mL 0805 ([facility] Hold - Provider: Admin Adt - Reason: Transfer to a Procedural area)0900 (Not Given - Provider: Emma Garcia RN - Reason: Transfer to a Procedural area)1230 ([facility] Unhold - Provider: Admin Adt)1746 (Given - [...] 12/12/2021 acetaminophen (Tylenol) tablet 650 mg 0805 ([facility] Hold - Provider: Admin Adt - Reason: Transfer to a Procedural area)1230 ([facility] Unhold - Provider: Admin Adt) 650 mg, Oral, EVERY 4 HOURS PRN, Startin g on Wed12/08/21 at 1639, Until Wed12/12/21 at 1312, Pain, Headaches, Maximum dose of acetaminophen is 4000 mg from all sources in 24 hours. When ordered for pain , acetaminophen should be given even whe n other ordered pain medications are indicated. , Routine bisacodyL (Dulcolax) suppository 10 mg 0805 ([facility] Hold - Provider: Admin Adt - Reason: Transfer to a Procedural area)1230 ([facility] Unhold - Provider: Admin Adt) 10 mg, [...] (Intra-Procedure), Routine niCARdipine (Cardene) (100 mcg/mL) dilution (RELIGION INSTRUCTOR) (CANCELED) 1030 (Given - Provider: Vitaliy Nobles [...] episode. & nbsp; For persistent hypoglycemia, con grid inspector longer-acting treatment for the duration of [...]
Routine documented in this encounter Care Teams Industrial Organizational Psychologist Relationship Specialty Start Date End Date Lovely Vicente MD PCP - General 04/16/[address] [place] [address] documented as of this encounter
--- OUTSIDE RECORDS SUMMARY | 2022-05-15 08:21 | XMS_ITS | Encounter Summary ---
:1945 Author Organization [facility] [place] [address] Care Team Providers Name Role Phone Lovely Vicente MD Primary Care Provider Encounter Details Date Type Department Care Team Description 03/20/2021 Ancillary Procedure Radiology Library at [place] [address] [place] [address] [phone] Social History Tobacco Use Types Packs/Day Years [...] Dolan MD [facility] [place] [address] (Wo rk) 05/28/2022 Laboratory Appointment Lab 05/28/2022 Office Visit Cardiology Zulma Dolan MD [facility] [place] [address] Liz Poole PA [facility] [place] [address] 06/10/2022 Office Visit Dermatology Laura Scherer MD [facility] ER [address] [place], [place] [address] (Wo rk) documented as [...] Organization Address City/State/ZIP Code Phon e Number [place], [place] documented in this encounter Visit Diagnoses Not on filedocumented in this encounter Care Teams Machine Silver Stripper Relationship Specialty Start Date End Date Lovely Vicente MD PCP - General 04/16/[address] [place] [address] documented as of this encounter
--- OUTSIDE RECORDS SUMMARY | 2022-05-15 08:21 | XMS_ITS | Encounter Summary ---
:1945 Author Organization [facility] [place] [address] Care Team Providers Name Role Phone Lovely Vicente MD Primary Care Provider Encounter Details Date Type Department Care Team Description 12/07/2021 Telephone Cardiology Eddi Briceño Jr., [facility] [place] [address] [facility] [phone] CARDIOLOGY DEPT [place], [place] [address] (Wo rk) Social History Tobacco [...] member. Referring Location: Referring Provider: Marisela Dean, PLASTICS FABRICATOR [address] [place] [address] Don Veda Kushal 76 y.o. w / [...] [facility] [place] [address] Liz Poole PA [facility] [place] [address] 06/10/2022 Office Visit Dermatology Laura Scherer MD [facility] [address] [place], [place] [address] (Wo rk) documented as of this encounter Visit Diagnoses Not on filedocumented in this encounter Care Teams Bass Guitar Teacher Relationship Specialty Start Date End Date Lovely Vicente MD PCP - General 04/16/15 [facility] [address] [place] [address] documented as of this encounter
--- OUTSIDE RECORDS SUMMARY | 2022-05-15 08:21 | XMS_ITS | Encounter Summary ---
:1945 [place] [address] Care Team Providers Name Role Phone Lovely Vicente MD Primary Care Provider Encounter Details Date Type Department Care Team Description 03/20/[address] [facility] Hugo Gaston MD [facility] [place] [address] [place] [address] [phone] (Wo rk) Social History Tobacco Use Types [...] Gaston MD Department of Neurology Pager # [phone] documented in this encounter Plan of Treatment Upcoming Encounters Date Type Specialty Care Team Description 05/28/2022 Appointment Cardiology Zulma Dolan MD [facility] [place], [place] [address] (Wo rk) 05/28/2022 Laboratory Appointment Lab 05/28/2022 Office Visit Cardiology Zulma Dolan MD [facility] [place] [address] Liz Poole PA [facility] [place] [address] 06/10/2022 Office Visit Dermatology Laura Scherer MD [facility] [address] [place], [place] [address] (Wo rk) documented as of this encounter Visit Diagnoses Not on filedocumented in this encounter Care Teams Customer Supply Coordinator Relationship Specialty Start Date End Date Lovely Vicente MD PCP - General 04/16/[address] [place] [address] documented as of this encounter
--- OUTSIDE RECORDS SUMMARY | 2022-05-15 08:21 | XMS_ITS | Encounter Summary ---
:1945 [place] [address] Care Team Providers Name Role Phone Lovely Vicente MD Primary Care Provider Encounter Details Date Type Department Care Team Description 12/07/2021 Ancillary Procedure [facility] Lovely murillo MD [facility] [address] [address] [place], [place] [phone] (Wo lissa) [phone] Social History Tobacco Use Types Packs/Day Years [...] Zulma Dolan MD [facility] [address] [place] [address] (Wo rk) 05/28/2022 Laboratory Appointment Lab 05/28/2022 Office Visit Cardiology Zulma Dolan MD [facility] [place] [address] Liz Poole PA [facility] [place] [address] 06/10/2022 Office Visit Dermatology Laura Scherer MD [facility] [address] [place], [place] [address] (Wo rk) documented as of [...] Organization Address City/State/ZIP Code Phon e Number [place], [place] documented in this encounter Visit Diagnoses Not on filedocumented in this encounter Care Teams Electronics Technician Relationship Specialty Start Date End Date Lovely Vicente MD PCP - General 04/16/[address] [place] [address] documented as of this encounter
--- OUTSIDE RECORDS SUMMARY | 2022-05-15 08:21 | XMS_ITS | Encounter Summary ---
:1945 Author Organization [facility] [place] [address] Care Team Providers Name Role Phone Lovely Vicente MD Primary Care Provider Encounter Details Date Type Department Care Team Description 12/08/2021 External Results Non-Invasive Cardiology Lab Mar y None [facility] [place] [address] Social History Tobacco Use Types Packs/Day [...] MD [facility] [place] [address] (Wo rk) 05/28/2022 Laboratory Appointment Lab 05/28/2022 Office Visit Cardiology Zulma Dolan MD [facility] [place] [address] [facility] [place] [address] 06/10/2022 Office Visit Dermatology Laura Scherer MD [facility] [address] [place], [place] [address] (Wo rk) documented as of [...] filedocumented in this encounter Care Teams Clinical Nutritionist Relationship Specialty Start Date End Date Lovely Vicente MD PCP - General 04/16/[address] [place] [address] documented as of this encounter
--- OUTSIDE RECORDS SUMMARY | 2022-05-15 08:21 | XMS_ITS | Encounter Summary ---
:1945 Author Organization [facility] [place] [address] Care Team Providers Name Role Phone Lovely Vicente MD Primary Care Provider Encounter Details Date Type Department Care Team Description 04/16/2021 Laboratory Appointment Lab 3L [facility] [place] [id number] Social History Tobacco Use Types Packs/Day Years [...] Zulma Dolan MD [facility] [place] [address] (Wo rk) 05/28/2022 Laboratory Appointment Lab 05/28/2022 Office Visit Cardiology Zulma Dolan MD [facility] [place] [address] Liz Poole PA [facility] [place] [address] 06/10/2022 Office Visit Dermatology Laura Scherer MD [facility] ER [address] [place], [place] [address] (Wo rk) documented as of this encounter [...] Organization Address City/State/[place] [address] (ABNORMAL) Basic Metabolic Panel (non-fasting) (04/16/2021 9:58 AM EDT) athologist Signature Glucose Lvl 77 65 - 199 [facility] mg/dL [facility] [...] Organization Address City/State/[place] [address] documented in this encounter Visit Diagnoses Diagnosis Chronic systolic heart failure documented in this encounter Care Teams Bi Data Modeler Relationship Specialty Start Date End Date Lovely Vicente MD PCP - General 04/16/[address] [place] [address] documented as of this encounter
--- OUTSIDE RECORDS SUMMARY | 2022-05-15 08:21 | XMS_ITS | Encounter Summary ---
:1945 Author Organization [facility] Address [facility] [place] [address] Care Team Providers Name Role Phone Lovely Vicente MD Primary Care Provider Encounter Details Date Type Department Care Team Description 01/02/2020 Office Visit Dermatology at [facility] keratoses; Abdelrahman HOOPER MD History of melanoma; [address] [facility] History of dysplastic nevus; [place] [address] Multiple benign nevi; [phone] [facility] Seborrheic yossi [place]; RD-DERMATOLGY Skin exam for malignant neoplasm [address], [place] [address] Social History Tobacco Use Types [...] Dolan MD [facility] [place], [place] [address] (Wo lissa) 05/28/2022 Laboratory Appointment Lab 05/28/2022 Office Visit Cardiology Zulma Dolan MD [facility] [place] [address] Liz Poole PA [facility] [place] [address] 06/10/2022 Office Visit Dermatology Laura Scherer MD [facility] DR [address], [place] [address] (Wo lissa) documented as of [...] skin documented in this encounter Care Teams Peer Health Promoter Relationship Specialty Start Date End Date Lovley Vicente MD PCP - General 04/16/15 [facility] [address] [place] [address] documented as of this encounter
--- OUTSIDE RECORDS SUMMARY | 2022-05-15 08:21 | XMS_ITS | Encounter Summary ---
:1945 Author Organization [facility] [place] [address] Care Team Providers Name Role Phone Lovely Vicente MD Primary Care Provider Reason for Referral Consultation (Routine) - Closed Specialty Diagnoses / Referred By Contact Referred To Contact Procedures Cardiac Rehabilitation Diagnoses Acute HFrEF (heart failure with reduced ejection fraction) Janneth Padilla, Cardiac Rehab, [address] [place] CARDIOLOGY DEPT. [address] [place] [address] Referral ID Status Reason Start Date Expiration Date Visits V isits Requested Authorized [id number] Closed Consult, 12/12/2021 12/12/2022 36 36 Test & Treat Reason for Visit Auth/Cert Specialty Diagnoses / Procedures Referred By Contact Refer red To Contact Diagnoses NSTEMI Procedures emerg ipi Referral ID Status Reason Start Date Expiration Date Visits Requ ested Visits Authorized [id number] 1 1 Encounter Details Date Type Department Care Team Description 12/08/2021 - Hospital Encounter Intermediate Cardiac Iker Cuevas MD [facility] [place] [address] Non-ST elevation myocardial infarction ( NSTEMI); 12/12/2021 Care Unit Ifeanyi Rene MD [facility] [place] [address] ST elevation myocardial infarction (STEM I), unspecified artery; [facility] Acute HFr EF (heart failure with reduced ejection fraction) [place] [address] Social History Tobacco Use Types Packs/Day Years [...] Don Fatima Patient Age: 76 y.o. Language: Frisian Race: White Ethnicity: Not nor Admit date: [...] Peter PA-C Kelly LaFlamme PA-C Cardiovascular Medicine [phone] Discharge Diagnoses (Hospital Problems) and Secondary Diagnoses (Chronic Problems): Active Hospital Problems Diagnosis ??? Admitted with CHF. CABG 2016. Found to have sequential vein graft down. OSMANI ok. PCI of LM/ostial Cx. Will stage RPDA for 2 weeks. EDP 30. DM. MARIA VICTROIA. ICM. Home Wednesday. ??? ASHD (arteriosclerotic heart [...] guiding catheter and a 3.5 Fr [place] 20 Mhz using Manual pullback. Imaging was successful. Image quality was good. The ostial LCX showed moderate diffuse atherosclerotic plaque with scattered three quadrant calcification. Measurements were performed after pre-dilation. Post Intervention: The stent was well expanded and apposed. Intravascular Ultrasound was performed in the distal LM using a 7 Fr EBU 3.75 guiding catheter and a 3.5 Fr [place] 20 Mhz using Manual [...] require modification of this regimen. Consult [facility] Interventional Cardiology for questions. The 1 year [...] mg PO daily in place of lasix. [place] is new for him and he will [...] ~$24/mo; affordable per patient. Post [facility] he was started on Eliquis. He [...] appointments: During 8am-5pm Wednesday through Wednesday call [phone] to speak with a nurse in the cardiology clinic All other times call [phone] and ask to speak to the curam developer balloon dipper. Return to work: One week Driving: No driving for 48 hours after catheterization. Follow up Appointments: PCP Lovely Vicente MD [phone] to see patient at the end of December for annual check up. Patient to see Dr. Lorenzana at 1120 am at December 19 for a post hospital check up. Quality Assurance Lead Dr. De Oliveira to see you in [facility]. Left a message for office to set a date and time. Please call [phone] Nobles to see the patient for a same day cath in 2-3 weeks from now. Office to call with a date and time. For questions please call [phone] Home oxygen therapy: N/A Arrangements for VNA/home care: none Future Appointments and Orders Future Orders Complete By Expires Basic Metabolic Panel (non-fasting) [LAB15 Custom] 12/19/2021 (Approximate) 12/12/2022 Process Instructions: INCLUDES: Calcium, BUN, Creat, GFR, Glucose, Lytes Scheduling Instructions: Comments: Questions: Referral to Cardiac Rehab [[id number] Custom] As directed Process Instructions: If no [...] appointments: During 8am-5pm Wednesday through Wednesday call [phone] to speak with a nurse in the cardiology clinic All other times call [phone] and ask to speak to the curam developer balloon dipper. Return to work: One week Driving: No driving for 48 hours after catheterization. Follow up Appointments: PCP Lovely Vicente MD [phone] to see patient at the end of December for annual check up. Patient to see Dr. Lorenzana at 1120 am at December 19 for a post hospital check up. Quality Assurance Lead Dr. De Oliveira to see you in [facility]. Left a message for office to set a date and time. Please call [phone] Nobles to see the patient for a same day cath in 2-3 weeks from now. Office to call with a date and time. 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 Tolerated procedure well. 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 Tolerated procedure well. Review of Systems: [...] 0.92* 0.89* Pertinent Radiographic/Diagnostic Results: R/[facility] 12/10/21 Hemodynamics: Right Heart Pressures Resting: [...] answered his questions. Iker Cuevas MD [facility] Total time spent on review of records prior to visit, face to face time with patient during visit, documentation, and coordination of care with other clinicians: 25 minutes. . Iker Cuevas MD - 12/10/2021 12:30 PM EDT Images from the original note were not included. 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 Tolerated procedure well. Review of Systems: [...] ??? heparin (porcine) infusion 1,600 Units/hr (12/09/21 6743) PRN Meds:ipratropium-albuteroL, senna-docusate, bisacodyL, sodium chloride 0.9 [...] 0.92* 0.89* Pertinent Radiographic/Diagnostic Results: R/[facility] 12/10/21 Hemodynamics: Right Heart Pressures Resting: [...] Discussed with MD Migdalia Peter PA-C Pager #[phone] 12/10/2021 Cardiology Attending Note I have seen [...] and given pictures. Iker Cuevas MD [facility] Total time spent on review of records prior to visit, face to face time with patient during visit, documentation, and coordination of care with other clinicians: 35 minutes. Iker Cuevas MD - 12/09/2021 7:28 AM EDT Images from the original note were not included. 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 heparin (porcine) infusion 1,600 Units/hr (12/09/21 9512) PRN Meds:ipratropium-albuteroL, sodium chloride 0.9 % (flush), [...] Discussed with MD Migdalia Peter PA-C Pager #[phone] 12/09/2021 Cardiology Attending Note I have seen [...] < 70 -CPAP tonight Iker Cuevas MD [facility] Total time spent on [...] [facility] MAIN OR Significant Family History: Family [...] ADRs. Trend troponins. Admission EKG. [facility] 12/09; consented. TTE. Telemetry monitoring, daily [...] control; n.p.o. after midnight for [facility] #DVT prophy- heparin infusion #GI prophy- PPI Discussed with MD Morgan Peter PA-C APP2 pager [phone] 12/08/2021 Cardiology Attending Note I have seen [...] is type 1 due to graft or [place] coronary stenosis vs acute injury from CHF. 3. PAF: currrently in NSR. Have replaced warfarin with heparin 4. PAD: stable 5. DM: stable 6. CKD: will monitor and minimize contrast. Pt very appreciative of Dr. Yuan Retana's care in 2018. Will let him know patient is here. Iker Cuevas MD [facility] documented in this encounter [...] Type: *No Product type* / Secondary Insurance: [employer] [place] Prescription Coverage: Yes This plan was [...] cath without complications. Migdalia Parker PA-C Pager #[phone] 12/10/2021 Initial Assessments - Nick Georges RN [...] COVID test: Lab Results Component Value Date [id number] Not Detected 12/08/2021 Past medical History: Past [...] days) Any patient receiving care at [facility] must abide by [place] law. The hierarchy [...] (i) The agent with financial power of banking attorney or a conservator appointed in accordance [...] - standard, cane - straight Home Address: [address] [place] [address] [place] [address] Social & Family Supports: All names listed below confirmed with patient as current and correct Extended Emergency Contact Information Primary Emergency Contact: Kisha Fatima Address: [address] [place] [address] [place] [address] [facility] Mobile Relation: Spouse Secondary Emergency Contact: Elba Swenson Address: [address] [place] Relation: Child Current Care Provided [...] Type: *No Product type* / Secondary Insurance: [employer] [facility] Prescription Coverage: Yes Preferred Pharmacy: [facility] Home [facility] [id number] [facility] [address] - [address] [address] [place] Status: Patient is a : unable to assess Primary Care Provider: Lovely Vicente MD [phone] Patient/Caregiver Goals of Treatment: Get out of here Potential Needs for Transition of Care: none Agency Referrals: none patient has used [facility] in the past Transportation: no concerns Transportation Anticipated: family or friend will provide Concerns to be Addressed: patient refuses services, discharge planning Assessment: Patient is admitted to [facility] [place] Service pager [phone] for 76 y.o.??male??with h/o??CAD s/p 3vCABG (THOMPSON-LAD, [...] status on current unit. Nick Georges RN restaurant crew member, Office of Care Management Pager: [phone] Brief Op Note - Vitaliy Nobles MD - 12/10/2021 8:31 AM EDT Images from the original note were not included. [facility] [place] [address] CORONARY ANGIOGRAM AND PERCUTANEOUS CORONARY INTERVENTION REPORT Patient: Don Fatima : 1945 MR number: [id number] Date of Service: 12/10/2021 Patients Transporter: Vitaliy Nobles MD Fellow: Rancho Woods MD [...] andis managed by his PCP. Lives in [place], [place] with his . States that he [...] Hold] heparin (porcine) infusion 1,600 Units/hr (12/09/21 1510) PRN: [SEP Hold] ipratropium-albuteroL, [SEP Hold] senna-docusate, [...] provide care for your patient Desirae Shaper CALIBRATION SPECIALIST Endocrinology Pager [phone] 70 minutes of this [...] for further details. STEPHANIE Rebolledo 12/08/2021 Pager [phone] documented in this encounter Plan of Treatment Upcoming Encounters Date Type Specialty Care Team Description 05/28/2022 Appointment Cardiology Zulma Dolan MD [facility] [place], [place] [address] (Wo rk) 05/28/2022 Laboratory Appointment Lab 05/28/2022 Office Visit Cardiology Zulma Dolan MD [facility] [place] [address] Liz Poole PA [facility] [address] 06/10/2022 Office Visit Dermatology Laura Scherer MD [facility] [address] [place], [place] [address] (Wo rk) Scheduled Referrals Name [...] POC Glucose 215 (H) 65 - 199 [facility] mg/dL [facility] [...] City/State/[place] [address] (ABNORMAL) Differential, Automated (12/12/2021 4:51 AM EDT) athologist Signature Neutrophils % 75.4 % [facility] LABORATORY Neutr Abs (ANC) 5.95 1.70 - [facility] 6.10 [facility] x10(3)/[facility] LABORATORY Lymphocytes % 12.2 % [facility] LABORATORY Lymphocytes Abs 1.0 0.9 - 3.2 [facility] x10(3)/[facility] LABORATORY Monocytes % 9.5 % [facility] LABORATORY Monocyte Abs 0.8 0.3 - 0.9 [facility] x10(3)/[facility] LABORATORY Eosinophils % 1.8 % [facility] LABORATORY Eosinophils Abs 0.1 0.0 - 0.4 [facility] x10(3)/[facility] LABORATORY Basophils % 0.5 % [facility] LABORATORY Basophils Abs 0.0 0.0 - 0.1 [facility] x10(3)/[facility] LABORATORY Immature Gran % 0.60 % [facility] [...] City/State/[place] [address] (ABNORMAL) Hemogram (12/12/2021 4:51 AM EDT) Analysis Performed At Patho logist Time Signature WBC 7.9 4.0 - 9.5 [facility] x10(3)/[facility] LABORATORY RBC 4.19 (L) 4.58 - [facility] 5.54 [facility] x10(6)/[facility] LABORATORY Hemoglobin 12.1 (L) 13.7 - [facility] 16.5 g/dL [facility] LABORATORY Hematocrit 36.7 (L) 40.5 - [facility] 48.5 % [facility] LABORATORY MCV 87.6 82.9 - [facility] 93.[address] [facility] LABORATORY MCH 28.9 27.5 - [facility] 32.[address] [facility] LABORATORY MCHC 33.0 32.0 - [facility] 35.7 g/dL [facility] LABORATORY Platelets 231 145 - 357 [facility] x10(3)/[facility] LABORATORY RDWSD 47.2 (H) 36.0 - [facility] 45.[address] [facility] LABORATORY RDWCV 14.6 (H) 11.4 - [facility] 13.8 % [facility] LABORATORY MPV 9.5 7.6 - 12.9 [facility] LABORATORY nRBC % Auto 0.0 % [facility] LABORATORY nRBC Abs Auto 0.000 0.000 - [facility] 0.000 [facility] x10(3)/[facility] LABORATORY Specimen Anatomical Collection Method Collection Time Receive d Time (Source) Location / / Volume Laterality Blood 12/12/2021 4:51 AM 2 5:06 EDT AM EDT Resulting Agency Comment Spec In Lab Bijan Sun MD HEMATOLOGY ORDERABLES Performing Organization Address City/[facility]/[place] [address] (ABNORMAL) Prothrombin Time (12/12/2021 4:51 AM EDT) P athologist Signature PT 14.9 (H) 9.4 - 12.5 [facility] LABORATORY INR 1.3 [facility] LABORATORY [...] Address City/[facility]/[place] [address] (ABNORMAL) BMP w/fasting Glucose (12/12/2021 4:51 AM EDT) athologist Signature Glucose 152 (H) 65 - 99 [facility] Fasting mg/dL [facility] [...] of Diabetes Mellitus, Position Statement from the [employer]. ??Diabete s Care, Volume 33, Supplement 1, Jul 2009 BUN 52 (H) 10 - 20 mg/dL [facility] LABORATORY Creatinine 1.72 (H) 0.80 - 1.50 mg/dL [facility] [...] Organization Address City/State/[place] [address] Magnesium (12/12/2021 4:51 AM EDT) P athologist Signature Magnesium 1.02 0.69 - 1.07 [facility] mmol/L [facility] LABORATORY Specimen Anatomical Collection Method Collection Time Receive d Time (Source) Location / / Volume Laterality Blood 12/12/2021 4:51 AM 2 5:06 EDT AM EDT Resulting Agency Comment Spec In Lab Iker Cuevas MD CHEMISTRY ORDERABLES Performing Organization Address City/[facility]/[place] [address] POCT Glucose (12/12/2021 3:43 AM EDT) P athologist Signature POC Glucose 138 65 - 199 [facility] mg/dL [facility] [...] Organization Address City/State/[place] [address] POCT Glucose (12/11/2021 11:44 [...] Address City/[facility]/[place] [address] (ABNORMAL) POCT Glucose (12/11/2021 8:12 PM EDT) athologist Signature POC Glucose 200 (H) 65 - 199 [facility] mg/dL [facility] [...] Address City/[facility]/[place] [address] (ABNORMAL) POCT Glucose (12/11/2021 [...] Organization Address City/State/[place] [address] (ABNORMAL) POCT Glucose (12/11/2021 4:00 PM EDT) P athologist Signature POC Glucose 383 (H) 65 - 199 [facility] mg/dL [facility] [...] Address City/[facility]/[place] [address] (ABNORMAL) POCT Glucose (12/11/2021 12:01 PM EDT) athologist Signature POC Glucose 342 (H) 65 - 199 [facility] mg/dL [facility] [...] Address City/[facility]/[place] [address] COVID-19 PCR (12/11/2021 10:13 AM EDT) [facility] gist Method Time Signature SARS-CoV-2 Not [...] diagnosis of COVID-19 is performed using the [employer] Dianna FRIEND S-CoV-2 Assay as authorized by the FDA Emergency Use Authorization (EUA). This EUA assay is intended for In-vitro Diagnostic (IVD) use with respiratory sp ecimens such as nasopharyngeal swabs collected from individuals during the ac council phase of infection. This assay is performed based on the instructions for use provided by [employer] and additional guidance provided by CDC [...] fact sheets at the following FDA website: https://www.fda.gov/medical-devices/qiskqhyxbvm-dxhulli-8080-soaef-56-gkxzatvxt- xvp-keizjqmryoezjs-saovtew-devices/dfjrr-gvhcndzpugv-wdah SARS-Cov-2 RNA Source DROP MACHINE OPERATOR Swab [facility] LABORATORY Specimen (Source) Anatomical Collection Method Collection Time Re ceived Time Location / / Volume Laterality Nasopharyngeal Swab 12/11/2021 10:13 05/03/2022 AM EDT 11:16 AM EDT Comment: Symptoms->Surveillance Resulting Agency Comment Spec In Lab Iker Cuevas MD MICROBIOLOGY - GENERAL ORDER [place] Performing Organization Address City/[facility] [place] [address] POCT Glucose (12/11/2021 7:34 AM EDT) athologist Signature POC Glucose 198 65 - 199 [facility] mg/dL [facility] [...] Address City/[facility]/[place] [address] (ABNORMAL) POCT Glucose (12/11/2021 5:07 AM EDT) P athologist Signature POC Glucose 208 (H) 65 - 199 [facility] mg/dL [facility] [...] Address City/[facility]/[place] [address] (ABNORMAL) Differential, Automated (12/11/2021 4:28 AM EDT) [facility] Method Time Signature Neutrophils % 79.6 % [facility] LABORATORY Neutr Abs (ANC) 7.01 (H) 1.70 - [facility] 6.10 [facility] x10(3)/[facility] L LABORATORY Lymphocytes % 9.1 % [facility] LABORATORY Lymphocytes Abs 0.8 (L) 0.9 - 3.2 [facility] x10(3)/[facility] LABORATORY Monocytes % 9.2 % [facility] LABORATORY Monocyte Abs 0.8 0.3 - 0.9 [facility] x10(3)/[facility] LABORATORY Eosinophils % 1.3 % [facility] LABORATORY Eosinophils Abs 0.1 0.0 - 0.4 [facility] x10(3)/[facility] LABORATORY Basophils % 0.5 % [facility] LABORATORY Basophils Abs 0.0 0.0 - 0.1 [facility] x10(3)/[facility] LABORATORY Immature Gran % 0.30 % [...] 0.00 - 0.04 x10(3)/[facility] LABORATORY Specimen Anatomical Collection Method Collection Time Receive d Time (Source) Location / / Volume Laterality Blood 12/11/2021 4:28 AM 4:37 EDT AM EDT Resulting Agency Comment Spec In Lab Bijan Sun MD HEMATOLOGY ORDERABLES Performing Organization Address City/[facility]/[place] [address] (ABNORMAL) Hemogram (12/11/2021 4:28 AM EDT) Analysis Performed At Patho logist Time Signature WBC 8.8 4.0 - 9.5 [facility] x10(3)/[facility] LABORATORY RBC 4.15 (L) 4.58 - [facility] 5.54 [facility] x10(6)/[facility] LABORATORY Hemoglobin 11.9 (L) 13.7 - [facility] 16.5 g/dL [facility] LABORATORY Hematocrit 36.9 (L) 40.5 - [facility] 48.5 % [facility] LABORATORY MCV 88.9 82.9 - [facility] 93.[address] [facility] LABORATORY MCH 28.7 27.5 - [facility] 32.[address] [facility] LABORATORY MCHC 32.2 32.0 - [facility] 35.7 g/dL [facility] LABORATORY Platelets 211 145 - 357 [facility] x10(3)/[facility] LABORATORY RDWSD 48.3 (H) 36.0 - [facility] 45.[address] [facility] LABORATORY RDWCV 14.8 (H) 11.4 - [facility] 13.8 % [facility] LABORATORY MPV 9.6 7.6 - 12.9 [facility] LABORATORY nRBC % Auto 0.0 % [facility] LABORATORY nRBC Abs Auto 0.000 0.000 - [facility] 0.000 [facility] x10(3)/[facility] LABORATORY Specimen Anatomical Collection Method Collection Time Receive d Time (Source) Location / / Volume Laterality Blood 12/11/2021 4:28 AM 2 4:37 EDT AM EDT Resulting Agency Comment Spec In Lab Bijan Sun MD HEMATOLOGY ORDERABLES Performing Organization Address City/State/[place] [address] (ABNORMAL) Prothrombin Time (12/11/2021 4:28 AM EDT) P athologist Signature PT 17.7 (H) 9.4 - 12.5 [facility] LABORATORY INR 1.6 [facility] LABORATORY [...] Organization Address City/State/[place] [address] (ABNORMAL) BMP w/fasting Glucose (12/11/2021 4:28 AM EDT) athologist Signature Glucose 207 (H) 65 - 99 [facility] Fasting mg/dL [facility] [...] of Diabetes Mellitus, Position Statement from the [employer]. ??Diabete s Care, Volume 33, Supplement 1, Jul 2009 BUN 49 (H) 10 - 20 mg/dL [facility] LABORATORY Creatinine 1.43 0.80 - 1.50 mg/dL [facility] [...] MD CHEMISTRY ORDERABLES Performing Organization Address City/[facility] [place] [address] Magnesium (12/11/2021 4:28 AM EDT) P athologist Signature Magnesium 1.04 0.69 - 1.07 [facility]/L [facility] LABORATORY Specimen Anatomical Collection Method Collection Time Receive d Time (Source) Location / / Volume Laterality Blood 12/11/2021 4:28 AM 2 4:37 EDT AM EDT Resulting Agency Comment Spec In Lab Iker Cuevas MD CHEMISTRY ORDERABLES Performing Organization Address City/State/ZIP Code Phon e Number [place] [id number]OS[address]ORY [address] POCT Glucose (12/11/2021 3:58 [...] Address City/[facility]/[place] [address] (ABNORMAL) POCT Glucose (12/10/2021 [...] Address City/[facility]/[place] [address] (ABNORMAL) POCT Glucose (12/10/2021 [...] City/State/[place] [address] Potassium (12/10/2021 7:46 PM EDT) athologist Signature Potassium 4.2 3.5 - 5.0 [facility] mmol/L [facility] [...] Address City/[facility]/[place] [address] (ABNORMAL) Basic Metabolic Panel (non-fasting) (12/10/2021 6:12 PM EDT) athologist Signature Glucose Lvl 246 (H) 65 - 199 [facility] mg/dL [facility] LABORATORY Comment: Diabetes: >=200 mg/dL plus symp toms BUN 50 (H) 10 - 20 mg/dL [facility] LABORATORY Creatinine 1.39 0.80 - 1.50 mg/dL [facility] [...] Address City/[facility]/[place] [address] POCT Glucose (12/10/2021 4:59 PM EDT) P athologist Signature POC Glucose 158 65 - 199 [facility] mg/dL [facility] [...] City/State/[place] [address] (ABNORMAL) POCT Glucose (12/10/2021 [...] Phon e Number [facility] [address] EKG 12 Lead (12/10/2021 11:17 AM EDT) Component Value Ref Range Test Analysis Performed Pathologis t Method Time At Signature Ventricular rate 62 BPM MUSE SYSTEM Atrial Rate 62 BPM MUSE SYSTEM P-R Interval 142 ms MUSE SYSTEM QRS Duration 100 ms MUSE SYSTEM Q-T Interval 434 ms MUSE SYSTEM QTC Calculated 440 ms MUSE SYSTEM (Bezet) Calculated P Marbury 34 degrees MUSE SYSTEM Calculated R Marbury -39 degrees MUSE SYSTEM Calculated T [place] 92 degrees MUSE SYSTEM INTERPRETATION Normal sinus [...] Volume Narrative 12/10/2021 12:04 PM EDT ?[facility] ? Cardiac Cathete rization/Intervention Report ? Patient Name: Don Fatima. ? Procedure Date: 12/10/2021 ? A #: [id number] ? Primary Physician: Nobles, Vitaliy P ? Case #: [id number] ? File Name: [id number] ? Catheterization Order Number: [id number] ? [facility] ? Final Report [place], [place] ? Patient Name: ? Don E. Stewa rt ? ID#: ?[id number] ? : ?1945 ? Procedure Date: ? December 10, 2021 ? Case #: ? [id number] ? Room: ? 1 ? Case Physician: [...] was ?designated as ASA Class III. e [facility] clinical frailty scale is 5: Mildly [...] procedure was Urgent. The indication for ?the parking lot laborer visit is ACS great er than [...] guiding catheter and a 3.5 Fr [place] [facility] [place] 20 Mhz using Manual [...] guiding catheter and a 3.5 Fr [place] [facility] [place] 20 Mhz using Manual [...] require ?modification of this regimen. C [facility] Interventional Cardiology for ?questions. ?The 1 [...] Note Vitaliy Nobles MD - 01/14/2022 [facility] Cardiac Catheterization/Intervention Re port Patient Name: Kushal Don VedaMadiha Procedure Date: 12/10/2021 A #: [id number] Primary Physician: Vitaliy Nobles Case #: [id number] File Name: [id number] Catheterization Order Number: [id number] [facility] [employer] [facility] Final Report [place], [place] Patient Name: Don Fatima ID#: [...] e was Urgent. The indication for the parking lot laborer visit is ACS greater than 24 [...] a 5Fr OLLIE RADIAL catheter. A 5Fr OLLEI RADIAL catheter was used to inject the [...] The BANNER indication for the procedure was N MARKIE-ACS. [...] POC Glucose 262 (H) 65 - 199 [facility] mg/dL [facility] [...] City/State/[place] [address] (ABNORMAL) POCT Glucose (12/10/2021 9:48 AM EDT) athologist Signature POC Glucose 279 (H) 65 - 199 [facility] mg/dL [facility] LABORATORY Comment: Supplemental ranges: <140 mg/dL before meals <180 mg/dL all other times of the day Specimen Anatomical Collection Method Collection Time Receive d Time (Source) Location / / Volume Laterality Blood 12/10/2021 9:48 AM 9:48 EDT AM EDT Iker Cuevas MD POINT OF CARE TEST ORDERABLE S Performing Organization Address City/State/[place] [address] (ABNORMAL) POCT Glucose (12/10/2021 9:07 AM EDT) P athologist Signature POC Glucose 268 (H) 65 - 199 [facility] mg/dL [facility] LABORATORY Comment: Supplemental ranges: <140 mg/dL before meals <180 mg/dL all other times of the day Specimen Anatomical Collection Method Collection Time Receive d Time (Source) Location / / Volume Laterality Blood 12/10/2021 9:07 AM 9:07 EDT AM EDT Iker Cuevas MD POINT OF CARE TEST ORDERABLE S Performing Organization Address City/State/[place] [address] (ABNORMAL) Point of Care Blood Gas Historical (12/10/2021 9:04 AM EDT) Patholo gist Method Time Signature POC pH 7.40 7.35 - [facility] 7.[address] [facility] LABORATORY POC PCO2 40 35 - 45 [facility] mmHg [facility] LABORATORY POC PO2 63 (L) 85 - 104 [facility] LABORATORY POC Base Excess 0.0 -3.0 - 3.0 [facility] K mmol/L [facility] LABORATORY POC HCO3 24.8 20.0 - [facility] 26.0 [facility] mmol/[facility] LABORATORY POC Sodium 143 135 - 145 [facility] mmol/L [facility] LABORATORY POC Potassium 3.7 3.5 - 5.0 [facility] mmol/L [facility] LABORATORY POC Ionized Ca 1.07 (L) 1.15 - [facility] 1.33 [facility] mmol/L HOSPITAL LABORATORY POC Hematocrit 30.0 (L) 40.0 - [facility] 51.0 % [facility] LABORATORY POC Calc Hgb 10.2 (L) 13.7 - [facility] 17.5 g/dL [facility] [...] Address City/[facility]/[place] [address] (ABNORMAL) POCT Glucose (12/10/2021 7:19 AM EDT) athologist Signature POC Glucose 274 (H) 65 - 199 [facility] mg/dL [facility] [...] Address City/[facility]/[place] [address] Heparin (unfractionated) Level (12/10/2021 [...] Address City/State/ZIP Code Phon e Number [address] (ABNORMAL) Differential, Automated (12/10/2021 4:25 AM EDT) [facility] Method Time Signature Neutrophils % 79.8 % [facility] LABORATORY Neutr Abs (ANC) 7.47 (H) 1.70 - [facility] 6.10 [facility] x10(3)/[facility] LABORATORY Lymphocytes % 10.6 % [facility] LABORATORY Lymphocytes Abs 1.0 0.9 - 3.2 [facility] x10(3)/[facility] LABORATORY Monocytes % 8.4 % [facility] LABORATORY Monocyte Abs 0.8 0.3 - 0.9 [facility] x10(3)/[facility] LABORATORY Eosinophils % 0.6 % [facility] LABORATORY Eosinophils Abs 0.1 0.0 - 0.4 [facility] x10(3)/[facility] LABORATORY Basophils % 0.2 % [facility] LABORATORY Basophils Abs 0.0 0.0 - 0.1 [facility] x10(3)/[facility] LABORATORY Immature Gran % 0.40 % [...] Address City/[facility]/ZIP Code Phon e Number [address] (ABNORMAL) Hemogram (12/10/2021 4:25 AM EDT) Analysis Performed At Patho logist Time Signature WBC 9.4 4.0 - 9.5 [facility] x10(3)/[facility] LABORATORY RBC 3.81 (L) 4.58 - [facility] 5.54 [facility] x10(6)/[facility] LABORATORY Hemoglobin 11.1 (L) 13.7 - [facility] 16.5 g/dL [facility] LABORATORY Hematocrit 34.0 (L) 40.5 - [facility] 48.5 % [facility] LABORATORY MCV 89.2 82.9 - [facility] 93.[address] [facility] LABORATORY MCH 29.1 27.5 - [facility] 32.[address] [facility] LABORATORY MCHC 32.6 32.0 - [facility] 35.7 g/dL [facility] LABORATORY Platelets 183 145 - 357 [facility] x10(3)/[facility] LABORATORY RDWSD 49.9 (H) 36.0 - [facility] 45.[address] [facility] LABORATORY RDWCV 15.2 (H) 11.4 - [facility] 13.8 % [facility] LABORATORY MPV 9.8 7.6 - 12.9 [facility] LABORATORY nRBC % Auto 0.0 % [facility] LABORATORY nRBC Abs Auto 0.000 0.000 - [facility] 0.000 [facility] x10(3)/[facility] LABORATORY Specimen Anatomical Collection Method Collection Time Receive d Time (Source) Location / / Volume Laterality Blood 12/10/2021 4:25 AM 2 4:34 EDT AM EDT Resulting Agency Comment Spec In Lab Morgan BROWN HEMATOLOGY ORDERABLES Performing Organization Address City/State/[place] [address] (ABNORMAL) Prothrombin Time (12/10/2021 4:25 AM EDT) P athologist Signature PT 20.0 (H) 9.4 - 12.5 [facility] LABORATORY INR 1.7 [facility] LABORATORY [...] City/State/ZIP Code Phon e Number [place] [phone]OS[address] LAB[address] Drive (ABNORMAL) BMP w/fasting Glucose (12/10/2021 4:25 AM EDT) athologist Signature Glucose 210 (H) 65 - 99 [facility] Fasting mg/dL [facility] [...] of Diabetes Mellitus, Position Statement from the [employer]. ??Diabete s Care, Volume 33, Supplement 1, Jul 2009 BUN 54 (H) 10 - 20 mg/dL [facility] LABORATORY Creatinine 1.52 (H) 0.80 - 1.50 mg/dL [facility] [...] City/State/[place] [address] Magnesium (12/10/2021 4:25 AM EDT) P athologist Signature Magnesium 0.95 0.69 - 1.07 [facility]/L [facility] LABORATORY Specimen Anatomical Collection Method Collection Time Receive d Time (Source) Location / / Volume Laterality Blood 12/10/2021 4:25 AM 2 4:34 EDT AM EDT Resulting Agency Comment Spec In Lab Iker Cuevas MD CHEMISTRY ORDERABLES Performing Organization Address City/[facility]/[place] [address] POCT Glucose (12/10/2021 1:58 AM EDT) athologist Signature POC Glucose 164 65 - 199 [facility] mg/dL [facility] [...] Address City/[facility]/[place] [address] (ABNORMAL) POCT Glucose (12/09/2021 9:02 PM EDT) athologist Signature POC Glucose 313 (H) 65 - 199 [facility] mg/dL [facility] [...] Address City/[facility]/[place] [address] Heparin (unfractionated) Level (12/09/2021 [...] City/State/[place] [address] (ABNORMAL) Basic Metabolic Panel (non-fasting) (12/09/2021 7:30 PM EDT) athologist Signature Glucose Lvl 372 (H) 65 - 199 [facility] mg/dL [facility] LABORATORY Comment: Diabetes: >=200 mg/dL plus symp toms BUN 56 (H) 10 - 20 mg/dL [facility] LABORATORY Creatinine 1.75 (H) 0.80 - 1.50 mg/dL [facility] [...] Organization Address City/State/[place] [address] (ABNORMAL) POCT Glucose (12/09/2021 6:34 PM EDT) P athologist Signature POC Glucose 408 (H) 65 - 199 [facility] mg/dL [facility] [...] Address City/[facility]/[place] [address] (ABNORMAL) POCT Glucose (12/09/2021 6:32 PM EDT) P athologist Signature POC Glucose 356 (H) 65 - 199 [facility] mg/dL [facility] [...] Organization Address City/State/[place] [address] (ABNORMAL) POCT Glucose (12/09/2021 4:19 PM EDT) athologist Signature POC Glucose 347 (H) 65 - 199 [facility] mg/dL [facility] [...] Address City/[facility]/[place] [address] Heparin (unfractionated) Level (12/09/2021 [...] Organization Address City/State/[place] [address] (ABNORMAL) POCT Glucose (12/09/2021 12:02 PM EDT) P athologist Signature POC Glucose 235 (H) 65 - 199 [facility] mg/dL [facility] [...] Address City/[facility]/[place] [address] (ABNORMAL) POCT Glucose (12/09/2021 9:44 AM EDT) P athologist Signature POC Glucose 214 (H) 65 - 199 [facility] mg/dL [facility] [...] Address City/[facility]/[place] [address] EKG 12 Lead (12/09/2021 7:57 AM EDT) Component Value Ref Range Test Analysis Performed Pathologis t Method Time At Signature Ventricular rate 101 BPM MUSE SYSTEM Atrial Rate 101 BPM MUSE SYSTEM P-R Interval 150 ms MUSE SYSTEM QRS Duration 112 ms MUSE SYSTEM Q-T Interval 364 ms MUSE SYSTEM QTC Calculated 471 ms MUSE SYSTEM (Bezet) Calculated P [place] 59 degrees MUSE SYSTEM Calculated R [place] -42 degrees MUSE SYSTEM Calculated T [place] 102 degrees MUSE SYSTEM INTERPRETATION Sinus tachycardia Occasional Premature ventricular com plexes MUSE SYSTEM Left axis deviation 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 [...] Organization Address City/State/[place] [address] (ABNORMAL) Hemoglobin A1c (12/09/2021 [...] Mellitus, Diabetes Care 2013; 36: Suppl. 1, L55-69 Est Avg Gluc See note mg/dL [place] [...] into estimated average glucose values. ??Diabetes Care 2008:31(8):8842-7508. Specimen Anatomical Collection Method Collection Time Receive d Time (Source) Location / / Volume Laterality Blood Venous Draw / 12/09/2021 6:18 AM 12/10/19 22 Unknown EDT 12:24 PM EDT Resulting Agency Comment Spec In Lab Migdalia BROWN CHEMISTRY ORDERABLES Performing Organization Address City/State/[place] [address] (ABNORMAL) Prothrombin Time (12/09/2021 6:18 AM EDT) athologist Signature PT 26.6 (H) 9.4 - 12.5 [facility] LABORATORY INR 2.3 [facility] LABORATORY [...] Address City/[facility]/ZIP Code Phon e Number [address] Heparin (unfractionated) Level (12/09/2021 [...] Address City/[facility]/[place] [address] (ABNORMAL) Differential, Automated (12/09/2021 6:18 AM EDT) Patholo gist Method Time Signature Neutrophils % 91.5 % [facility] LABORATORY Neutr Abs (ANC) 15.78 (H) 1.70 - [facility] 6.10 [facility] x10(3)/[facility] L LABORATORY Lymphocytes % 2.9 % [facility] LABORATORY Lymphocytes Abs 0.5 (L) 0.9 - 3.2 [facility] x10(3)/[facility] LABORATORY Monocytes % 4.9 % [facility] LABORATORY Monocyte Abs 0.8 0.3 - 0.9 [facility] x10(3)/[facility] LABORATORY Eosinophils % 0.0 % [facility] LABORATORY Eosinophils Abs 0.0 0.0 - 0.4 [facility] x10(3)/[facility] LABORATORY Basophils % 0.2 % [facility] LABORATORY Basophils Abs 0.0 0.0 - 0.1 [facility] x10(3)/[facility] LABORATORY Immature Gran % 0.50 % [...] City/State/[place] [address] (ABNORMAL) Hemogram (12/09/2021 6:18 AM EDT) Analysis Performed At Patho logist Time Signature WBC 17.2 (H) 4.0 - 9.5 [facility] x10(3)/[facility] LABORATORY RBC 4.32 (L) 4.58 - [facility] 5.54 [facility] x10(6)/[facility] LABORATORY Hemoglobin 12.6 (L) 13.7 - [facility] 16.5 g/dL [facility] LABORATORY Hematocrit 38.9 (L) 40.5 - [facility] 48.5 % [facility] LABORATORY MCV 90.0 82.9 - [facility] 93.[address] [facility] LABORATORY MCH 29.2 27.5 - [facility] 32.[address] [facility] LABORATORY MCHC 32.4 32.0 - [facility] 35.7 g/dL [facility] LABORATORY Platelets 193 145 - 357 [facility] x10(3)/[facility] LABORATORY RDWSD 50.4 (H) 36.0 - [facility] 45.[address] [facility] LABORATORY RDWCV 15.2 (H) 11.4 - [facility] 13.8 % [facility] LABORATORY MPV 9.5 7.6 - 12.9 [facility] LABORATORY nRBC % Auto 0.0 % [facility] LABORATORY nRBC Abs Auto 0.000 0.000 - [facility] 0.000 [facility] x10(3)/[facility] LABORATORY Specimen Anatomical Collection Method Collection Time Receive d Time (Source) Location / / Volume Laterality Blood 12/09/2021 6:18 AM 6:33 EDT AM EDT Resulting Agency Comment Spec In Lab Morgan BROWN HEMATOLOGY ORDERABLES Performing Organization Address City/State/[place] [address] Lipid Panel (Reflex Direct LDL) (12/09/2021 6:18 AM EDT) P athologist Signature Chol, Total 105 mg/dL [facility] LABORATORY Comment: Lower Risk: <200 mg/dL Average Risk: 200-239 mg/dL Higher Risk: >ym=172 mg/dL Triglycerides 133 mg/dL [facility] LABORATORY Comment: Average Risk/Lower Risk: <150 mg/dL Borderline High Risk: 150-199 mg/dL High Risk: 200-499 mg/dL Very High Risk: >xo=340 mg/dL HDL 42 mg/dL [facility] LABORATORY Comment: Males: ?? Higher Risk: <40 mg/dL Females: ?? Higher Risk: <50 mg/dL LDL Cholesterol 36 mg/dL [facility] LABORATORY Comment: Lowest Risk: <100 mg/dL Lower Risk: 100-129 mg/dL Borderline High Risk: 130-159 mg/dL High Risk: 160-189 mg/dL Very High Risk: >ts=336 mg/dL Chol/HDL Ratio 2.5 ratio [facility] LABORATORY Lipid Interpretation See Note [facility] LABORATORY Comment: Lipid management should be guided by a p atient? s ASCVD risk, goals and preferences. ACC/AHA Guidelines recommend high intens ity statin if clinical ASCVD or LDL greater than or equal to 190 mg/dL. http://[employer].FathomDB/SGA-TYT-Qutnpnqyj Adults aged 40-75 with LDL 70-189 mg/dL should have their 10 year ASCVD risk estimated with the ACC/AHA ASCVD risk es timator http://tools.acc.org/EXNNZ-Ygbu-Lqytecbu r/ Statin should be discussed if risk [...] City/State/[place] [address] TSH (12/09/2021 6:18 AM EDT) athologist Signature TSH 1.60 0.27 - 4.20 [facility] mcIU/mL [facility] [...] Address City/[facility]/[place] [address] Hepatic Function Panel (12/09/2021 6:18 AM EDT) athologist Signature Total Protein 7.3 6.1 - 8.0 [facility] g/dL [facility] LABORATORY Albumin 4.2 3.2 - 5.2 [facility]YAN g/dL [facility] LABORATORY AST 25 0 - 39 [facility] RYAN unit/L [facility] LABORATORY ALT 15 0 - 55 [facility] unit/L [facility] LABORATORY Alk Phos 75 40 - 130 [facility] unit/L [facility] LABORATORY Total 1.1 0.2 - 1.3 [facility] Bilirubin mg/dL [facility] [...] MD CHEMISTRY ORDERABLES Performing Organization Address City/[facility] [place] [address] (ABNORMAL) BMP w/fasting Glucose [...] of Diabetes Mellitus, Position Statement from the [employer]. ??Diabete s Care, Volume 33, [...] Address City/State/ZIP Code Phon e Number [address] Magnesium (12/09/2021 6:18 AM EDT) P athologist Signature Magnesium 0.81 0.69 - 1.07 [facility] mmol/L [facility] LABORATORY Specimen Anatomical Collection Method Collection Time Receive d Time (Source) Location / / Volume Laterality Blood 12/09/2021 6:18 AM 2 6:33 EDT AM EDT Resulting Agency Comment Spec In Lab Iker Cuevas MD CHEMISTRY ORDERABLES Performing Organization Address City/State/[place] [address] (ABNORMAL) Troponin (12/09/2021 6:18 [...] sample may be indicated. Reference: Third [employer] Definition of Myocardial Infarction. Journal of the [employer] 2012;60:1581-98 Specimen Anatomical Collection Method Collection Time Receive d Time (Source) Location / / Volume Laterality Blood 12/09/2021 6:18 AM 6:33 EDT AM EDT Resulting Agency Comment Spec In Lab Iker Cuevas MD CHEMISTRY ORDERABLES Performing Organization Address City/State/ZIP Code Phon e Number [place] [id number] HOSPITAL LAB[address]ORY Drive XR Chest One View [...] have questions please contact the health healthcare analyst that requested your imaging first. ? [...] have questions please contact the health healthcare analyst that requested your imaging first. Amber Sanches MD IMG DX ORDERABLES (ABNORMAL) BLOOD GAS 2 ARTERIAL (12/09/2021 5:14 AM EDT) Analysis Performed At Path logis Time Signature pH Art 7.43 7.35 - [facility] 7.[address] [facility] LABORATORY pCO2 Art 36 35 - 45 [facility] LABORATORY pO2 Art 67 (L) 85 - 104 [facility] LABORATORY HCO3 Art 23.4 20.0 - [facility] 26.0 [facility] mmol/L THE [facility] BE Art -0.9 -3.0 - 3.0 [facility] mmol/L [facility] LABORATORY Hgb Blood Gas 13.2 (L) 13.7 - [facility] 16.5 g/dL [facility] LABORATORY O2HB Art 91.3 (L) 94.0 - [facility] 97.0 % [facility] LAB[facility]ORY PF Ratio Art 191 [facility] Specimen Anatomical Collection Method Collection Time Receive d Time (Source) Location / / Volume Laterality Blood 12/09/2021 5:14 AM 5:14 EDT AM EDT Iker Cuevas MD CHEMISTRY ORDERABLES Performing Organization Address City/State/[place] [address] POCT Glucose (12/09/2021 4:46 AM EDT) athologist Signature POC Glucose 198 65 - 199 [facility] mg/dL [facility] [...] Organization Address City/State/[place] [address] (ABNORMAL) POCT Glucose (12/09/2021 [...] AM 2 3:01 EDT AM EDT Iker Cueavs MD POINT OF CARE TEST ORDERABLE S Performing Organization Address City/State/[place] [address] (ABNORMAL) POCT Glucose (12/08/2021 [...] Organization Address City/State/[place] [address] Heparin (unfractionated) Level (12/08/2021 10:03 PM EDT) P athologist Signature Heparin UFH 0.18 IU/mL [place] [...] City/State/[place] [address] (ABNORMAL) Troponin (12/08/2021 10:03 PM EDT) athologist Signature Troponin-T 0.92 (H) 0.00 - [facility] 0.00 ng/mL [facility] [...] sample may be indicated. Reference: Third [place] Definition of Myocardial Infarction. Journal of the [employer] College [employer] Card[employer] 2012;60:1581-98 Specimen Anatomical Collection Method Collection Time Receive d Time (Source) Location / / Volume Laterality Blood 12/08/2021 10:03 12/08/2021 PM EDT 10:31 PM EDT Resulting Agency Comment Spec In Lab Iker Cuevas MD CHEMISTRY ORDERABLES Performing Organization Address City/[facility]/[place] [address] (ABNORMAL) POCT Glucose (12/08/2021 [...] Address City/[facility]/[place] [address] (ABNORMAL) POCT Glucose (12/08/2021 [...] 7:06 PM 2 7:06 EDT PM EDT kIer Cuevas MD POINT OF CARE TEST ORDERABLE S Performing Organization Address City/[facility]/[place] [address] Magnesium (12/08/2021 6:02 PM EDT) athologist Signature Magnesium 0.86 0.69 - 1.07 [facility] mmol/L [facility]ORY Specimen Anatomical Collection Method Collection Time Receive d Time (Source) Location / / Volume Laterality Blood 12/08/2021 6:02 PM 6:36 EDT PM EDT Resulting Agency Comment Spec In Lab Iker Cuevas MD CHEMISTRY ORDERABLES Performing Organization Address City/State/ZIP Code Phon e Number [address] (ABNORMAL) Basic Metabolic Panel (non-fasting) (12/08/2021 6:02 PM EDT) athologist Signature Glucose Lvl 392 (H) 65 - 199 [facility] mg/dL [facility]ORY Comment: Diabetes: >=200 mg/dL plus symp toms BUN 41 (H) 10 - 20 mg/dL [facility]ORY Creatinine 1.44 0.80 - 1.50 mg/dL [facility] [...] Organization Address City/State/[place] [address] (ABNORMAL) Differential, Automated (12/08/2021 6:02 PM EDT) [facility] gist Method Time Signature Neutrophils % 89.5 % [facility] Neutr Abs (ANC) 13.97 (H) 1.70 - [facility] 6.10 [facility] x10(3)/[facility] LABORATORY Lymphocytes % 3.7 % [facility] LAB[facility]ORY Lymphocytes Abs 0.6 (L) 0.9 - 3.2 [facility] x10(3)/[facility] LABORATORY Monocytes % 6.1 % [facility] LABOR[facility]ORY Monocyte Abs 1.0 (H) 0.3 - 0.9 [facility] x10(3)/[facility] LABORATORY Eosinophils % 0.0 % [facility]ORY Eosinophils Abs 0.0 0.0 - 0.4 [facility] x10(3)/[facility] LABORATORY Basophils % 0.2 % [facility] LAB[facility]ORY Basophils Abs 0.0 0.0 - 0.1 [facility] x10(3)/[facility] LABORATORY Immature Gran % 0.50 % [...] City/State/[place] [address] (ABNORMAL) Hemogram (12/08/2021 6:02 PM EDT) Analysis Performed At Patho logist Time Signature WBC 15.6 (H) 4.0 - 9.5 [facility] x[facility](3[facility] LABORATORY RBC 4.05 (L) 4.58 - [facility] RYAN 5.54 [facility] x10(6)/[facility] LABORATORY Hemoglobin 11.8 (L) 13.7 - [facility] 16.5 g/dL [facility] LABORATORY Hematocrit 35.8 (L) 40.5 - [facility] 48.5 % [facility] LABORATORY MCV 88.4 82.9 - [facility] 93.[address] [facility] LABORATORY MCH 29.1 27.5 - [facility]AN 32.[address] [facility] LABORATORY MCHC 33.0 32.0 - [facility] 35.7 g/dL [facility] LABORATORY Platelets 178 145 - 357 [facility] x10(3)/[facility] LABORATORY RDWSD 49.3 (H) 36.0 - [facility] RYAN [address] [facility] LABORATORY RDWCV 15.1 (H) 11.4 - [facility] 13.8 % [facility] LABORATORY MPV 10.4 7.6 - 12.9 [facility] LABORATORY nRBC % Auto 0.0 % [facility] LABORATORY nRBC Abs Auto 0.000 0.000 - [facility] 0.000 [facility] x10(3)/[facility] LABORATORY Specimen Anatomical Collection Method Collection Time Receive d Time (Source) Location / / Volume Laterality Blood 12/08/2021 6:02 PM 2 6:36 EDT PM EDT Resulting Agency Comment Spec In Lab Morgan BROWN HEMATOLOGY ORDERABLES Performing Organization Address City/State/ZIP Code [place] [address] (ABNORMAL) Troponin (12/08/2021 6:02 [...] sample may be indicated. Reference: Third [place] [employer] Definition of Myocardial Infarction. Journal of the [employer] College [employer]iology 2012;60:1581-98 Specimen Anatomical Collection Method Collection Time Receive d Time (Source) Location / / Volume Laterality Blood 12/08/2021 6:02 PM 2 6:36 EDT PM EDT Resulting Agency Comment Spec In Lab Iker Cuevas MD CHEMISTRY ORDERABLES Performing Organization Address City/State/ZIP [place] [address] COVID-19 PCR (12/08/2021 5:00 PM EDT) [facility] Method Time Signature SARS-CoV-2 Not Detected Not [...] using the Simplexa COVID-19 Direct Assay by Stockrjoi marcum as authorized by the FDA issued [...] clinical management guidance information are available at [facility] Coronavirus Disease 2019 (COVID-19) webpage under Information fo r Healthcare Professionals (https://www.cdc.gov/coronavirus/2019-nc ov/hcp/index.html). Additional information about this and ot her EUA tests can be found in provider and patient fact sheets at the following FDA website: https://www.fda.gov/medical-devices/maesqadmjfb-rykzncm-4886-zcgxv-43-nwxpasmpc- mni-cpefuzyxgewgzo-oprpeeu-devices/swkyn-tiahrxvbtbv-ywpt SARS-CoV-2 Source DROP MACHINE OPERATOR Swab [facility] LABORATORY Specimen (Source) Anatomical Collection Method Collection Time Re ceived Time Location / / Volume Laterality Nasopharyngeal Swab 12/08/2021 5:00 12/08 PM EDT 6:03 PM EDT Comment: Symptoms->Surveillance Resulting Agency Comment Spec In Lab Iker Cuevas MD MICROBIOLOGY - GENERAL ORDER ROBSON Performing Organization Address City/[facility] Phon e Number [place] [phone] HOSPITAL LAB[address]ORY [address] EKG 12 Lead (12/08/2021 4:40 PM EDT) Component Value Ref Range Test Analysis Performed Pathologis t Method Time At Signature Ventricular rate 78 BPM MUSE SYSTEM Atrial Rate 78 BPM MUSE SYSTEM P-R Interval 152 ms MUSE SYSTEM QRS Duration 96 ms MUSE SYSTEM Q-T Interval 396 ms MUSE SYSTEM QTC Calculated 451 ms MUSE SYSTEM (Bezet) Calculated P [place] 44 degrees MUSE SYSTEM Calculated R [place] -31 degrees MUSE SYSTEM Calculated T [place] 124 degrees MUSE SYSTEM INTERPRETATION Normal sinus [...] MD ECG ORDERABLES Performing Organization Address City/[facility] Phon e Number MUSE SYSTEM (ABNORMAL) POCT Glucose (12/08/2021 4:34 PM EDT) P athologist Signature POC Glucose 400 (H) 65 - 199 [facility] mg/dL [facility] [...] e [place] [facility] [place] [address] documented in this encounter [...] Coronary atherosclerosis of unspecified type of vessel, [place] or graft Cardiomyopathy, ischemic Other specified forms [...] VAMSI) 0001 (Given - Provider: Derrick Galeas, VAMIS)0631 (Given - Provider: Derrick Galeas RN) 12.5 [...] tablet 25 mg 0844 (Given - Provider: mEma Garcia RN) 0829 [...] 1 mg( Linked Group 2) 08 ([facility] Hold - Provider: Admin Adt - Reason: Transfer to a Procedural area)1230 ([facility] Unhold - Provider: Admin Adt) 1 [...] (Glutose) 40% oral geL(Linked Group 2) 08 ([facility] Hold - Provider: Admin Adt - Reason: Transfer to a Procedural area)1230 ([facility] Unhold - Provider: Admin Adt) 15-30 [...] (Intra-Procedure), Routine niCARdipine (Cardene) (100 mcg/mL) dilution (CRIMINAL JUSTICE INSTRUCTOR) (CANCELED) 1030 (Given - Provider: Vitaliy [...] Reason: Transfer to a Procedural area)1230 ([facility] Unhold - Provider: Admin Adt) 1 tablet, Oral, 2 TIMES DAILY PRN, Start ing on Wed12/09/21 at 1628, Until Wed12/12/21 at 1312, Constipation, Routine sodium chloride 0.9 % (flush) (BD PosiFlush Normal Sean ine 0.9) flush 5-20 mL 08 ([facility] Hold - Provider: Admin Adt - Reason: Transfer to a Procedural area)1230 ([facility] Unhold - Provider: Admin Adt) 5-20 [...] episode. & nbsp; For persistent hypoglycemia, con customer agent longer-acting treatment for the duration of [...]
Routine documented in this encounter Care Teams Barn Worker Relationship Specialty Start Date End Date Lovely Vicente MD PCP - General 04/16/[address] [place] [address] [address] [place] [address] documented as of this encounter
--- OUTSIDE RECORDS SUMMARY | 2022-05-15 08:21 | XMS_ITS | Encounter Summary ---
:1945 Author Organization [facility] [place] [address] Care Team Providers Name Role Phone Lovely Vicente MD Primary Care Provider Encounter Details Date Type Department Care Team Description 03/20/2021 Ancillary Procedure Radiology Library [place] [address] [place] [address] [phone] Social History Tobacco Use Types Packs/Day Years [...] [facility] [place] [address] [place], [place] [address] (Wo rk) 05/28/2022 Laboratory Appointment Lab 05/28/2022 Office Visit Cardiology Zulma Dolan MD [facility] [place] [address] Liz Poole PA [facility] [place] [address] 06/10/2022 Office Visit Dermatology Laura Scherer MD [facility] ER [address] [place], [place] [address] (Wo rk) documented as [...] Organization Address City/State/ZIP Code Phon e Number [place], [place] documented in this encounter Visit Diagnoses Not on filedocumented in this encounter Care Teams Pan Reclaim Processor Relationship Specialty Start Date End Date Lovely Vicente MD PCP - General 04/16/[address] [place] [address] documented as of this encounter
--- OUTSIDE RECORDS SUMMARY | 2022-05-15 08:21 | XMS_ITS | Encounter Summary ---
:1945 Author Organization [facility] [place] [address] Care Team Providers Name Role Phone Lovely Vicente MD Primary Care Provider Encounter Details Date Type Department Care Team Description 12/07/2021 External Results Administration [facility] [place] [address] Social History Tobacco Use Types Packs/Day [...] [facility] [address] [place] [address] (Wo rk) 05/28/2022 Laboratory Appointment Lab 05/28/2022 Office Visit Cardiology Zulma Dolan MD [facility] [place] [address] Liz Poole PA [facility] [place] [address] 06/10/2022 Office Visit Dermatology Laura Scherer MD [facility] ER [address] [place], [place] [address] (Wo rk) documented as of [...] filedocumented in this encounter Care Teams Fountain Waitress/Waiter Relationship Specialty Start Date End Date Lovely Vicente MD PCP - General 04/16/[address] [place] [address] documented as of this encounter
--- OUTSIDE RECORDS SUMMARY | 2022-05-15 08:21 | XMS_ITS | Encounter Summary ---
:1945 Author Organization [facility] [place] [address] Care Team Providers Name Role Phone Lovely Vicente MD Primary Care Provider Encounter Details Date Type Department Care Team Description 11/07/2019 TH Visit Cardiology at [facility] Danette Maxwell (arteriosclerotic heart disease); (TeleHealth) [facility] STACIE Gomes Cardiomyopathy, ischemic; Drive [facility] S/P CABG x 3; [place], [place] MARIA VICTORIA (obstructive sleep apnea) on CPAP [phone] CARDIOLOGY [phone] [place], [place] [address] Social History Tobacco Use [...] regurgitation present. 07/07/2019 - 07/21/2019 Zio Patch Customer Resource Specialist The patient had a minimum heart [...] at last check 6. Post-op atrial fibrillation [id number] (CHF, HTN, DM, vascular disease, thromboembolism) Amiodarone discontinued Continue coumadin INR managed by PCP 7. PAD 08/06/2017: Right 1st, 2nd, 3rd toe amputation 08/11/2017: Left??femoral arterial access, RLE??angiogram, Balloon angioplasty of R PT with Eleazar 2.5 x 80 10/25/2017: right popliteal-pedal bypass at [facility] Continue Coumadin 8. Hypothyrodism S/p thyroidectomy [...] Dolan MD [facility] [place], [place] [address] (Wo rk) 05/28/2022 Laboratory Appointment Lab 05/28/2022 Office Visit Cardiology Zulma Dolan MD [facility] [place] [address] Liz Poole PA [facility] [place] [address] 06/10/2022 Office Visit Dermatology Laura Scherer MD [facility] DR [address] [place], [place] [address] (Wo rk) documented as of this encounter Visit Diagnoses Diagnosis ASHD (arteriosclerotic heart disease) Coronary atherosclerosis of unspecified type of vessel, andreaf[place] or graft Cardiomyopathy, ischemic Other specified forms of chronic ischemi c heart disease S/P CABG x 3 Postsurgical aortocoronary bypass status MARIA VICTORIA (obstructive sleep apnea) on CPAP Obstructive sleep apnea (adult) (pediatr ic) documented in this encounter Care Teams Basket Maker Relationship Specialty Start Date End Date Lovely Vicente MD PCP - General 04/16/[address] [place], [place] [address] documented as of this encounter
--- OUTSIDE RECORDS SUMMARY | 2022-05-15 08:21 | XMS_ITS | Encounter Summary ---
:1945 [place] [address] Care Team Providers Name Role Phone Lovely Vicente MD Primary Care Provider Reason for Visit Reason Comments Skin Cancer Examination Encounter Details Date Type Department Care Team Description 03/20/2021 Office Visit Dermatology at [facility] Brennen Rene MD History of melanoma; [facility] History of dysplastic nevus; [address] Multiple benign nevi; [place] [address] [facility] [address] (seborrheic keratosis); [phone] [address]DERMATOLOG[address] [place] (actinic keratosis) [place], [place] [address] Social History Tobacco Use [...] no SOCIAL HISTORY 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 [employer] Hobbies: gannon boy when younger- lots of [...] FSE; history of Melanoma []Note routed to service secretary [x]Recall has been placed in scheduling [...] by: LAURA RENE MD Dermatology [facility] documented in this encounter Plan of Treatment Upcoming Encounters Date Type Specialty Care Team Description 05/28/2022 Appointment Cardiology TrudiZulma Knowles MD [facility] [place], [place] [address] (Wo rk) 05/28/2022 Laboratory Appointment Lab 05/28/2022 Office Visit Cardiology Zulma Dolan MD [facility] [place] [address] Liz Poole PA [facility] [place] [address] 06/10/2022 Office Visit Dermatology Laura Rene MD [facility] DR [address] [place], [place] [address] (Wo rk) documented as of this encounter Visit Diagnoses Diagnosis History of melanoma Personal history of malignant melanoma o f skin History of dysplastic nevus Personal history of diseases of skin and subcutaneous tissue Multiple benign nevi Benign neoplasm of skin, site unspecifie d [place] (seborrheic keratosis) Other seborrheic keratosis [place] (actinic keratosis) Actinic keratosis documented in this encounter Care Teams Clerk Cashier Relationship Specialty Start Date End Date Lovely Vicente MD PCP - General 04/16/[address] [place] [address] documented as of this encounter
--- OUTSIDE RECORDS SUMMARY | 2022-05-15 08:22 | XMS_ITS | Encounter Summary ---
:1945 Author Organization [facility] [place] [address] Care Team Providers Name Role Phone Lovely Vicente MD Primary Care Provider Encounter Details Date Type Department Care Team Description 11/29/2017 Hospital Encounter Vascular Lab at Janett Walter PAD (peripheral [facility], RVT artery [facility]) [place] [address] Social History Tobacco Use Types Packs/Day Years [...] Zulma Dolan MD [facility] [address] [place], [place] [address] (Wo rk) 05/28/2022 Laboratory Appointment Lab 05/28/2022 Office Visit Cardiology Zulma Dolan MD [facility] [place] [address] Liz Poole PA [facility] [place] [address] 06/10/2022 Office Visit Dermatology Laura Scherer MD [facility] DR [address] [place], [place] [address] (Wo rk) documented as of this encounter Procedures Procedure Name Priority Date/Time Associated Diagnosis Comme nts ARTERIAL DUPLEX LEG Routine 11/29/2017 10:32 AM PAD (periphera l Results for this UNILA EDT artery disease) procedure ar e in the results section. documented in this encounter Results Arterial Duplex Leg, Unil (11/29/2017 10:32 AM EDT) Component Value Ref Test Analysis Performed At [facility] Range Method Time Signature VB Text Department: Vascular Surgery Lab VASCUBASE Report Patient: [id number] (DON HOANG) CPT: 80267 ICD10: I72.4;I73.9 Referring Physician: DANETTE MAXWELL ?? [...] unspecified documented in this encounter Care Teams Brush Clearer Surveying Relationship Specialty Start Date End Date Lovely Vicente MD PCP - General 04/16/[address] [place], [place] [address]Y [facility] [address] [place] [address] documented as of this encounter
--- OUTSIDE RECORDS SUMMARY | 2022-05-15 08:22 | XMS_ITS | Encounter Summary ---
:1945 Author Organization [facility] [place] [address] Care Team Providers Name Role Phone Lovely Vicente MD Primary Care Provider Reason for Visit Reason Comments Establish Care Atrial Fibrillation Congestive Heart Failure Cardiomyopathy Encounter Details Date Type Department Care Team Description 09/06/2019 [facility] Ischem[facility] Osvaldo STRANGE [address] [place], [place] CARDIOLOGY DEPT. [address] [place] [address] [phone] Social History Tobacco Use Types Packs/Day Years [...] today For any questions, call my office: [phone] To access your health care information, go to the web at: [email or web address] (you will need to register) For educational materials: [email or web address] Karel TRAMMELL.[facility], Clinical Cardiac Electrophysiology, [facility], [facility] A Healthy Heart: After Your Visit Heart [...] least 2 servings of fish a week. Doyline, mackerel, mcfadden, sardines, and chunk light tuna [...] irregular heartbeat. After you call 911, the gang drill press operator may tell you to chew [...] more? Visit our health information library at [email or web address]. You can also view health information on [employer], your personal patient account. Log in or sign up today. Enter F075 in the search box to learn more about A Healthy Heart: After Your Visit. ?? [phone] [employer] documented in this encounter Progress Notes Karel Mcelroy MD - 09/06/2019 2:20 PM EST Images from the original note were not included. Section of Cardiology/Cardiac Electrophysiology [facility] Clinical Cardiac Electrophysiology Consult Patient ID Don Fatima 1945 [id number] Don Fatima is referred to the EP clinic by Danette Maxwell APRN PhD Chief Complaint Dyspnea on exertion Ischemic cardiomyopathy History This is a 74 y.o. male following up/being seen in clinic for evaluation for ongoing anticoagulation. He has a Otjep3Vhls score of ~ 6-7. He has a [...] on phone: None Gets together: None Attends sikh service: None Active member of club or [...] reviewed the ECG: sinus rhythm, 72 bpm, GA 140 ms, QRS 100 ms, QT 400 [...] EP clinic KAREL MCELROY MD Cardiac Electrophysiology [facility] T: [phone] F: [phone] minutes of this 40 minute encounter were spent in counselling, as described above Cc: MD Danette Cr APRN PhD Janett Espino DPM documented in this encounter Plan of Treatment Upcoming Encounters Date Type Specialty Care Team Description 05/28/2022 Appointment Cardiology Zulma Dolan MD [facility] [place], [place] [address] (Wo rk) 05/28/2022 Laboratory Appointment Lab 05/28/2022 Office Visit Cardiology Zulma Dolan MD [facility] [address] Liz Poole PA [facility] [place] [address] 06/10/2022 Office Visit Dermatology Laura Scherer MD [facility] [address] [place], [place] [address] (Wo rk) documented as [...] 446 ms MUSE SYSTEM (Bezet) Calculated P Lewis 37 degrees MUSE SYSTEM Calculated R Lewis -23 degrees MUSE SYSTEM Calculated T Lewis 116 degrees MUSE SYSTEM INTERPRETATION Normal sinus rhythm MUSE SYSTEM Inferior infarct (cited on or before 25-JAN-2013) ST & T wave abnormality, consider anterolateral ischemia Abnormal ECG When compared with ECG of 19-AUG-2017 10:23, No significant change was found Confirmed by MD Cande, Michael ([id number]) on 09/08/2019 10:22:4 7 AM Specimen Anatomical [...] disease documented in this encounter Care Teams Tmd Teacher Relationship Specialty Start Date End Date Lovely Vicente MD PCP - General 04/16/[address] [place] [address] documented as of this encounter
--- OUTSIDE RECORDS SUMMARY | 2022-05-15 08:22 | XMS_ITS | Encounter Summary ---
:1945 Author Organization [facility] [place] [address] Care Team Providers Name Role Phone Lovely Vicente MD Primary Care Provider Encounter Details Date Type Department Care Team Description 04/18/2018 Laboratory Appointment Lab 3L [facility] [place] [phone] Social History Tobacco Use Types Packs/Day Years [...] [facility] er [address] [place], [place] [address] (Wo rk) 05/28/2022 Laboratory Appointment Lab 05/28/2022 Office Visit Cardiology Zulma Dolan MD [facility] [place] [address] Liz oPole PA [facility] [place] [address] 06/10/2022 Office Visit Dermatology Laura Scherer MD [facility] ER DR TEJA GR-DERMAT [place], [place] [address] (Wo rk) documented as of [...] Signature Total Protein 7.6 6.1 - 8.0 [facility] gm/dL [facility] Albumin 4.0 3.2 - 5.2 [facility] gm/dL [facility] AST 36 0 - 39 [facility] unit/L [facility] ALT 27 0 - 55 [facility] unit/L [facility] Alk Phos 96 40 - 120 [facility] unit/L [facility] Total 0.7 0.2 - 1.3 [place] DirectLaw Bilirubin mg/dL [facility] Bili, Direct 0.1 0.0 - 0.3 [facility] mg/dL [facility] Specimen Anatomical Collection Method Collection Time Receive d Time (Source) Location / / Volume Laterality Blood specimen Venous Draw / 04/18/2018 9:19 AM 2017 9:44 (specimen) Unknown EDT AM EDT Resulting Agency Comment Spec In Lab Danette Maxwell APRN CHEMISTRY ORDERABLES Performing Organization Address City/State/[place] [address] TSH (04/18/2018 9:19 AM EDT) athologist Signature TSH 1.77 0.27 - 4.20 [facility] mlU/ML [facility] Specimen Anatomical Collection Method Collection Time Receive d Time (Source) Location / / Volume Laterality Blood specimen Venous Draw / 04/18/2018 9:19 AM 2017 9:44 (specimen) Unknown EDT AM EDT Resulting Agency Comment Spec In Lab Danette Maxwell APRN CHEMISTRY ORDERABLES Performing Organization Address City/State/[place] [address] (ABNORMAL) Basic Metabolic Panel (non-fasting) (04/18/2018 9:19 AM EDT) athologist Signature Glucose Lvl 167 65 - 199 [facility] mg/dL [facility] Comment: Diabetes: [...] of body mass or the acutely ill. http://[email or web address] eGFR 70 >=60 mL/min/1.73 m?? [facility] Comment: The eGFR was calculated using the CKD-EP I equation. As with all creatinine based estimates of kidney function, eGFR values calculated with the CKD-EPI equation are not accurate in patients wi th acute kidney failure, extremes of body mass or the acutely ill. http://MoPix/DHnkf Specimen Anatomical Collection Method Collection Time Receive d Time (Source) Location / / Volume Laterality Blood specimen 04/18/2018 9:19 AM 018 9:34 (specimen) EDT AM EDT Resulting Agency Comment Spec In Lab Danette Maxwell APRN CHEMISTRY ORDERABLES Performing Organization Address City/[facility]/[place] [address] (ABNORMAL) pro-Brain Natriuretic Peptide (04/18/2018 9:19 AM EDT) P athologist Signature ProBNP 2,199 (H) <=125 [facility] pg/mL [facility] Specimen Anatomical Collection Method Collection Time Receive d Time (Source) Location / / Volume Laterality Blood specimen 04/18/2018 9:19 AM 018 9:34 (specimen) EDT AM EDT Resulting Agency Comment Spec In Lab Danette Maxwell APRN CHEMISTRY ORDERABLES Performing Organization Address City/[facility]/[place] [address] documented in this encounter Visit Diagnoses Diagnosis Chronic systolic heart failure documented in this encounter Care Teams Link Trainer Operator Relationship Specialty Start Date End Date Lovely Vicente MD PCP - General 04/16/[address] [place] [address] documented as of this encounter
--- OUTSIDE RECORDS SUMMARY | 2022-05-15 08:22 | XMS_ITS | Encounter Summary ---
:1945 Author Organization [facility] [place] [address] Care Team Providers Name Role Phone Lovely Vicente MD Primary Care Provider Reason for Referral Diagnostic Test (Routine) - Closed Specialty Diagnoses / Procedures Referred By Contact Refer red To Contact Cardiology Diagnoses Chronic systolic heart failure Danette Maxwell APRN [facility] Non-Inv Card Lab Procedures Echocardiogram Transthoracic(Leb) [facility] [place] [address] [place] [address] Referral ID Status Reason Start Date Expiration Date Visits V isits Requested Authorized [id number] Closed Specialty 07/17/2019 09/14/2019 1 1 Service Requested Reason for Visit Diagnostic Test (Routine) - Closed Specialty Diagnoses / Procedures Referred By Contact Refer red To Contact Cardiology Diagnoses Chronic systolic heart failure Danette Maxwell APRN [facility] Non-Inv Card Lab Procedures Echocardiogram Transthoracic(Leb) [facility] [place] [address] [place] [address] Referral ID Status Reason Start Date Expiration Date Visits V isits Requested Authorized [id number] Closed Specialty 07/17/2019 09/14/2019 1 1 Service Requested Encounter Details Date Type Department Care Team Description 07/28/2019 Hospital Encounter Non-Invasive Chronic s ystolic heart [place] [address] Social History Tobacco Use Types Packs/Day [...] Zulma Dolan MD [facility] [address] [place], [place] [address] (Wo rk) 05/28/2022 Laboratory Appointment Lab 05/28/2022 Office Visit Cardiology Zulma Dolan MD [facility] [place] [address] Liz Poole PA [facility] [place] [address] 06/10/2022 Office Visit Dermatology Laura Scherer MD [facility] DR [address] [place], [place] [address] (Wo rk) documented as of [...] Mccollum ? (Age): 1945(74y) Med Rec#: ? [id number] ?Sex: ?M ? Site Loc: ? [facility] ?Ht / Wt: ??172(cm)/81(kg) Pt. Loc: ?Echo Lab ?BSA: ?1.94 Study Date: ?? 07/28/2019 ?Pt. Type: Outpatient Tape: ? Referring: MARY ELLEN Reading: Ifeanyi Truong ([id number]) Hogshead Builder: Fadumo Flanagan RDCS, FASE Diagnosis: *Chronic systolic [...] E-wave Vmax ?1 ?m/sec ? MV deceleration vays116.5 ? msec ? MV A-wave Vmax ?1 [...] ? Mid-Inferior ?Hypokinetic ? Mid-Inferoseptal ?Normal ? [place]-Septal ? Normal ? [place]-Anterior ? Hypokinetic ? [place]-Lateral ?Normal ? [place]-Inferior ? Akinetic ? [place]-Tip ?Hypokinetic ? This report has been electronically sign ed by: _ Ifeanyi Truong M.D. ? 07/28/2019 0 8:38:01 Images reviewed and interpretation verif ied [facility] Cardiac Ultrasound Laboratory Procedure Note Ifeanyi Truong MD - 07/28/2019Formatt ing of this note might be different from the original. Procedure: Transthoracic Echocardiogram Patient: NATALYA MCBRIDE(Age): [birth year]74y) Med Rec#: [id number] Sex: M Site Loc: [facility] Ht / Wt: 172(cm)/81(kg) Pt. Loc: Echo Lab BSA: 1.94 Study Date: 07/28/2019 Pt. Type: Outpati ent Tape: Referring: MARY ELLEN Reading: Ifeanyi Truong ([id number]) Hogshead Builder: Fadumo Flanagan [facility], [facility] Diagnosis: *Chronic systolic (congestive) heart fa ilure [...] MV E-wave Vmax 1 m/sec MV deceleration qscg614.5 msec MV A-wave Vmax 1 m/sec MV [...] Normal Mid-Posterolateral Normal Mid-Inferior Hypokinetic Mid-Inferoseptal Normal [place]-Septal Normal [place]-Anterior Hypokinetic [place]-Lateral Normal [place]-Inferior Akinetic [place]-Tip Hypokinetic This report has been electronically sign [...] Routine documented in this encounter Care Teams Dietetic Technician Registered Relationship Specialty Start Date End Date Lovely Vicente MD PCP - General 04/16/[address] [place] [address] documented as of this encounter
--- OUTSIDE RECORDS SUMMARY | 2022-05-15 08:22 | XMS_ITS | Encounter Summary ---
:1945 Author Organization [facility] [place] [address] Care Team Providers Name Role Phone Lovely Vicente MD Primary Care Provider Encounter Details Date Type Department Care Team Description 10/05/2017 Telephone Cardiology at [facility] [place] Sin MD [facility] [place] [address] CARDIOLOGY DEPT [phone] [place], [place] [address] (Wo rk) Social History [...] MD [facility] er [address] [place] [address] (Wo rk) 05/28/2022 Laboratory Appointment Lab 05/28/2022 Office Visit Cardiology Zulma Dolan MD [facility] [place] [address] Liz Poole PA [facility] [place] [address] 06/10/2022 Office Visit Dermatology Laura Scherer MD [facility] ER DR [address] [place], [place] [address] (Wo rk) documented as of this encounter Visit Diagnoses Not on filedocumented in this encounter Care Teams Manager Helpdesk Relationship Specialty Start Date End Date Lovely Vicente MD PCP - General 04/16/[address] [place] [address] documented as of this encounter
--- OUTSIDE RECORDS SUMMARY | 2022-05-15 08:22 | XMS_ITS | Encounter Summary ---
:1945 Author Organization [facility] [place] [address] Care Team Providers Name Role Phone Lovely Vicente MD Primary Care Provider Reason for Visit Reason Onset Date Comments Follow-up 07/13/2018 amiodarone discontin ued Encounter Details Date Type Department Care Team Description 07/13/2018 Telephone Cardiology at [facility] Martha Comer, Follow-up (amiodarone [facility] RN discontin ued) [place] [address] Social History Tobacco Use Types Packs/Day [...] RN - 07/13/2018 8:57 AM EST Per CANINE DEPUTY Hans call placed to the home number for the pt. confirmed that the pt is still taking the amiodarone. Pt is to stop the amiodarone. Pt taking it for post op a-fib, therapy was supposed to be for 30 days. Message given to his . She will give him the message and will have him call with any questions. Call placed to the [facility] pharmacy in [place] to discontinue it there as well. Med list updated. documented in this encounter Plan of Treatment Upcoming Encounters Date Type Specialty Care Team Description 05/28/2022 Appointment Cardiology Zulma Dolan MD [facility] [address] [place], [place] [address] (Wo rk) 05/28/2022 Laboratory Appointment Lab 05/28/2022 Office Visit Cardiology Zulma Dolan MD [facility] [place] [address] Liz Poole PA [facility] [place] [address] 06/10/2022 Office Visit Dermatology Laura Scherer MD [facility] DR [address] [place], [place] [address] (Wo rk) documented as of this encounter Visit Diagnoses Not on filedocumented in this encounter Care Teams Cone Operator Relationship Specialty Start Date End Date Lovely Vicente MD PCP - General 04/16/[address] [place] [address] documented as of this encounter
--- OUTSIDE RECORDS SUMMARY | 2022-05-15 08:22 | XMS_ITS | Encounter Summary ---
:1945 Author Organization [facility] [place] [address] Care Team Providers Name Role Phone Lovely Vicente MD Primary Care Provider Encounter Details Date Type Department Care Team Description 10/05/2017 Unscheduled Cardiology at [facility] RONNIE Sin PATIENT NOT SEEN Encounter [facility] Tamiko Martinez MD [facility] [address] CARDIOLOGY DEPT [phone] [place] [address] Social History Tobacco Use Types Packs/Day Years [...] MD [facility] [address] [place], [place] [address] (Wo rk) 05/28/2022 Laboratory Appointment Lab 05/28/2022 Office Visit Cardiology Zulma Dolan MD [facility] [place] [address] [facility] [place] [address] 06/10/2022 Office Visit Dermatology Laura Scherer MD [facility] [address] [place], [place] [address] (Wo rk) documented as of this encounter Visit Diagnoses Diagnosis DH PATIENT NOT SEEN documented in this encounter Care Teams Steward/Stewardess Chief Cargo Vessel Relationship Specialty Start Date End Date Lovely Vicente MD PCP - General 04/16/[address] [place] [address] documented as of this encounter
--- OUTSIDE RECORDS SUMMARY | 2022-05-15 08:22 | XMS_ITS | Encounter Summary ---
:1945 Author Organization [facility] [address] Care Team Providers Name Role Phone Lovely Vicente MD Primary Care Provider Encounter Details Date Type Department Care Team Description 07/28/2019 Laboratory Appointment Lab 3L [facility] [place] [phone] Social History Tobacco Use Types Packs/Day Years [...] MD [facility] er [place], [place] [address] (Wo rk) 05/28/2022 Laboratory Appointment Lab 05/28/2022 Office Visit Cardiology Zulma Dolan MD [facility] [place] [address] Liz Poole PA [facility] [place] [address] 06/10/2022 Office Visit Dermatology Laura Scherer MD [facility] DR [address] [place] [address] (Wo rk) documented as of this encounter [...] Address City/State/[place] [address] (ABNORMAL) Basic Metabolic Panel (non-fasting) (07/28/2019 8:36 AM EST) athologist Signature Glucose Lvl 153 65 - 199 [facility] mg/dL [facility] Comment: Diabetes: [...] of body mass or the acutely ill. [email or web address]://Souqalmal/Momspotnkf eGFR 81 >=60 mL/min/1.73 m?? [facility] Comment: The eGFR was calculated using the CKD-EP I equation. As with all creatinine based estimates of kidney function, eGFR values calculated with the CKD-EPI equation are not accurate in patients wi th acute kidney failure, extremes of body mass or the acutely ill. http://Souqalmal/[facility] STIL[facility]LLnkf Specimen Anatomical Collection Method Collection Time Receive d Time (Source) Location / / Volume Laterality Blood specimen 07/28/2019 8:36 AM 020 8:46 (specimen) EST AM EST Resulting Agency Comment Spec In Lab Danette Maxwell APRN CHEMISTRY ORDERABLES Performing Organization Address City/State/[place] [address] documented in this encounter Visit Diagnoses Diagnosis Chronic systolic heart failure documented in this encounter Care Teams Concrete Finisher Apprentice Relationship Specialty Start Date End Date Lovely Vicente MD PCP - General 04/16/[address] [place] [address] documented as of this encounter
--- OUTSIDE RECORDS SUMMARY | 2022-05-15 08:22 | XMS_ITS | Encounter Summary ---
:1945 Author Organization [facility] [place] [address] Care Team Providers Name Role Phone Lovely Vicente MD Primary Care Provider Encounter Details Date Type Department Care Team Description 08/15/2018 Office Visit Cardiology at [facility] Danette Maxwell Chronic systolic heart failu re; [facility] A, HUMAN RESOURCES TRAINER Cardiomyopathy, ischemic; [facility] ASCVD (arteriosclerotic card iovascular disease); [place], [place] Essential hypertension; [address] CARDIOLOGY MARIA VICTORIA on CPAP [phone] [place], [place] [address] Social History Tobacco Use Types [...] in this encounter Progress Notes Danette Maxwell, HUMAN RESOURCES TRAINER - 08/15/2018 9:00 AM EST Images from [...] K+ 4.6 today 6. Post-op atrial fibrillation [id number] 7 (CHF, HTN, DM, vascular disease, thromboembolism) Amiodarone discontinued Continue coumadin INR managed by PCP. 2.1 today 7. PAD 08/06/2017: Right 1st, 2nd, 3rd toe amputation 08/11/2017: Left??femoral arterial access, RLE??angiogram, Balloon angioplasty of R PT with Eleazar 2.5 x 80 10/25/2017: [facility] [...] Zulma Dolan MD [facility] [address] [place] [address] (Wo rk) 05/28/2022 Laboratory Appointment Lab 05/28/2022 Office Visit Cardiology Zulma Dolan MD [facility] [place] [address] Liz Poole PA [facility] [place] [address] 06/10/2022 Office Visit Dermatology Laura Scherer MD [facility] ER DR [address] [place]LOGY [place], [place] [address] (Wo rk) documented as of this encounter Results Lipid Panel (08/15/2018 8:04 AM EST) athologist Signature Chol, Total 75 mg/dL [facility] Comment: Lower Risk: <200 mg/dL Average Risk: 200-239 mg/dL Higher Risk: >bv=549 mg/dL Triglycerides 185 mg/dL [facility] Comment: Average Risk/Lower Risk: <150 mg/dL Borderline High Risk: 150-199 mg/dL High Risk: 200-499 mg/dL Very High Risk: >nh=966 mg/dL HDL 32 mg/dL [facility] Comment: Males: ?? Higher Risk: <40 mg/dL Females: ?? HIgher Risk: <50 mg/dL LDL Cholesterol 6 mg/dL [facility] Comment: Lowest Risk: <100 mg/dL Lower Risk: 100-129 mg/dL Borderline High Risk: 130-159 mg/dL High Risk: 160-189 mg/dL Very High Risk: >ue=910 mg/dL Chol/HDL Ratio 2.3 ratio [facility] Lipid Interpretation See Note [facility] Comment: Lipid management should be guided by a p atient? s ASCVD risk, goals and preferences. ACC/AHA Guidelines recommend high intens ity statin if clinical ASCVD or LDL greater than or equal to 190 mg/dL. http://SEWORKSurl.com/KMR-ZEF-Qsplekmmv Adults aged 40-75 with LDL 70-189 mg/dL should have their 10 year ASCVD risk estimated with the ACC/AHA ASCVD risk es timator http://tools.acc.org/KKIFJ-Pgob-Rigvniea r/ Statin should be discussed if risk [...] City/State/[place] [address] (ABNORMAL) Basic Metabolic Panel (non-fasting) (08/15/2018 8:04 AM EST) P athologist Signature Glucose Lvl 116 65 - 199 [facility] mg/dL [facility] [...] of body mass or the acutely ill. http://Wasabi 3D/[facility]WTONnkf eGFR 79 >=60 mL/min/1.73 m?? [facility] Comment: The eGFR was calculated using the CKD-EP I equation. As with all creatinine based estimates of kidney function, eGFR values calculated with the CKD-EPI equation are not accurate in patients wi th acute kidney failure, extremes of body mass or the acutely ill. http://Wasabi 3D/[facility] LAWTONnkf Specimen Anatomical Collection Method Collection Time Receive d Time (Source) Location / / Volume Laterality Blood specimen 08/15/2018 8:04 AM 019 8:20 (specimen) EST AM EST Resulting Agency Comment Spec In Lab Danette Maxwell APRN CHEMISTRY ORDERABLES Performing Organization Address City/State/ZIP Code Phon e Number [address] (ABNORMAL) pro-Brain Natriuretic Peptide (08/15/2018 8:04 AM EST) P athologist Signature ProBNP 1,797 (H) <=125 [facility] pg[facility] Specimen Anatomical Collection Method Collection Time Receive d Time (Source) Location / / Volume Laterality Blood specimen 08/15/2018 8:04 AM 019 8:20 (specimen) EST AM EST Resulting Agency Comment Spec In Lab Danette Maxwell APRN CHEMISTRY ORDERABLES Performing Organization Address City/State/[place] [address] documented in this encounter Visit Diagnoses Diagnosis Chronic systolic heart failure Cardiomyopathy, ischemic Other specified forms of chronic ischemi c heart disease ASCVD (arteriosclerotic cardiovascular d isease) Unspecified cardiovascular disease Essential hypertension Unspecified essential hypertension MARIA VICTORIA on CPAP Obstructive sleep apnea (adult) (pediatr ic) documented in this encounter Care Teams Liner Man Relationship Specialty Start Date End Date Lovely Vicente MD PCP - General 04/16/15 [address] [place] [address] documented as of this encounter
--- OUTSIDE RECORDS SUMMARY | 2022-05-15 08:22 | XMS_ITS | Encounter Summary ---
:1945 Author Organization [facility] Address [facility] [place] [address] Care Team Providers Name Role Phone Lovely Vicente MD Primary Care Provider Reason for Referral Diagnostic Test (Routine) - Closed Specialty Diagnoses / Procedures Referred By Contact Refer red To Contact Cardiology Diagnoses Chronic systolic heart failure Danette Maxwell APRN [facility] Non-Inv Card Lab Procedures Echocardiogram Transthoracic(Leb) [facility] [place] [address] [place] [address] Referral ID Status Reason Start Date Expiration Date Visits V isits Requested Authorized [id number] Closed Specialty 07/17/2019 09/14/2019 1 1 Service Requested Encounter Details Date Type Department Care Team Description 01/16/2019 Office Visit Cardiology at [facility] Danette Maxwell, Chronic systolic heart failu re; [facility] STACIE Cardiomyopathy, ischemic; Drive [facility] Hx of thyroid cancer; [place], [place] DR ELMORE (arteriosclerotic heart disease); [phone] CARDIOLOGY MARIA VICTORIA (obstructive sleep apnea) on CPAP [phone] [place], [place] [address] (Wo rk) Social History Tobacco Use Types [...] K+ 4.6 today 6. Post-op atrial fibrillation [id number] (CHF, HTN, DM, vascular disease, thromboembolism) Amiodarone discontinued Continue coumadin INR managed by PCP. 2.1 today 7. PAD 08/06/2017: Right 1st, 2nd, 3rd toe amputation 08/11/2017: Left??femoral arterial access, RLE??angiogram, Balloon angioplasty of R PT with Eleazar 2.5 x 80 10/25/2017: [facility] [...] Zulma Dolan MD [facility] [place], [place] [address] (Wo rk) 05/28/2022 Laboratory Appointment Lab 05/28/2022 Office Visit Cardiology Zulma Dolan MD [facility] [place] [address] Liz Poole PA [facility] [place] [address] 06/10/2022 Office Visit Dermatology Laura Scherer MD [facility] [address] [place], [place] [address] (Wo rk) documented as of this encounter Results ECHOCARDIOGRAM COMPLETE W CONTRAST (07/28/2019 8:19 AM EST) athologist Signature EF 40 [facility] Anatomical Region Laterality Modality Other Specimen (Source) Anatomical Location Collection Method / Collectio n Time Received Time / Laterality Volume 07/28/2019 Narrative 07/28/2019 8:38 AM EST Procedure: ?Transthoracic Echocardiogram Patient: ?NATALYA Mccollum ? (Age): 1945(74y) Med Rec#: ? [id number] ?Sex: ?M ? Site Loc: ? [facility] ?Ht / Wt: ??172(cm)/81(kg) Pt. Loc: ?Echo Lab ?BSA: ?1.94 Study Date: ?? 07/28/2019 ?Pt. Type: Outpatient Tape: ? Referring: MARY ELLEN Reading: Ifeanyi Truong ([id number]) Mold Maker Plastic Molds: Fadumo Flanagan RDCS, REGINA Diagnosis: *Chronic systolic [...] E-wave Vmax ?1 ?m/sec ? MV deceleration ezym853.5 ? msec ? MV A-wave Vmax ?1 [...] ? Mid-Inferior ?Hypokinetic ? Mid-Inferoseptal ?Normal ? Ponder-Septal ? Normal ? Ponder-Anterior ? Hypokinetic ? Ponder-Lateral ?Normal ? Ponder-Inferior ? Akinetic ? Ponder-Tip ?Hypokinetic ? This report has been electronically sign ed by: _ Ifeanyi Truong M.D. ? 07/28/2019 0 8:38:01 Images reviewed and interpretation verThe [facility] Procedure Note Ifeanyi Truong MD - 07/28/2019Formatt ing of this note might be different from the original. Procedure: Transthoracic Echocardiogram Patient: NATALYA MCBRIDE(Age): [birth year]74y) Med Rec#: [id number] Sex: M Site Loc: [facility] Ht / Wt: 172(cm)/81(kg) Pt. Loc: Echo Lab BSA: 1.94 Study Date: 07/28/2019 Pt. Type: Outpati ent Tape: Referring: MARY ELLEN Reading: Ifeanyi Truong ([id number]) Mold Maker Plastic Molds: Fadumo Flanagan [facility] [[email or web address]], REGINA Diagnosis: *Chronic systolic (congestive) heart fa [...] MV E-wave Vmax 1 m/sec MV deceleration krrt455.5 msec MV A-wave Vmax 1 m/sec MV [...] Normal Mid-Posterolateral Normal Mid-Inferior Hypokinetic Mid-Inferoseptal Normal Ponder-Septal Normal Ponder-Anterior Hypokinetic Ponder-Lateral Normal Ponder-Inferior Akinetic Ponder-Tip Hypokinetic This report has been electronically sign ed by: _ Ifeanyi Truong M.D. 07/28/2019 08:38:0 1 Images reviewed and interpretation verif ied [facility] Cardiac Ultrasound Laboratory Danette Maxwell APRN ECHO ORDERABLES (ABNORMAL) Basic Metabolic Panel (non-fasting) (01/16/2019 7:49 AM EDT) P athologist Signature Glucose Lvl 105 65 - 199 [facility] mg/dL [facility] [...] of body mass or the acutely ill. http://Ansira/ImmunoCellular Therapeuticsnkf eGFR 79 >=60 mL/min/1.73 m?? [facility] Comment: The eGFR was calculated using the CKD-EP I equation. As with all creatinine based estimates of kidney function, eGFR values calculated with the CKD-EPI equation are not accurate in patients wi th acute kidney failure, extremes of body mass or the acutely ill. http://Ansira/[facility] Specimen Anatomical Collection Method Collection Time Receive d Time (Source) Location / / Volume Laterality Blood specimen 01/16/2019 7:49 AM 019 7:55 (specimen) EDT AM EDT Resulting Agency Comment Spec In Lab Danette Maxwell APRN CHEMISTRY ORDERABLES Performing Organization Address City/State/[place] [address] (ABNORMAL) pro-Brain Natriuretic Peptide (01/16/2019 7:49 AM EDT) P athologist Signature ProBNP 780 (H) <=125 pg/mL [facility] Specimen Anatomical Collection Method Collection Time Receive d Time (Source) Location / / Volume Laterality Blood specimen 01/16/2019 7:49 AM 019 7:55 (specimen) EDT AM EDT Resulting Agency Comment Spec In Lab Danette Maxwell [employer] CHEMISTRY ORDERABLES Performing Organization Address City/State/[place] [address] documented in this encounter [...] documented in this encounter Care Teams Administrative Intern Relationship Specialty Start Date End Date Lovely Vicente MD PCP - General 04/16/[address] [place] [address] documented as of this encounter
--- OUTSIDE RECORDS SUMMARY | 2022-05-15 08:22 | XMS_ITS | Encounter Summary ---
:1945 Author Organization [facility] [place] [address] Care Team Providers Name Role Phone Lovely Vicente MD Primary Care Provider Reason for Referral Diagnostic Test (Routine) - Specialty Diagnoses / Procedures Referred By Contact Refer red To Contact Cardiology Diagnoses Chronic systolic heart failure Danette Maxwell APRN [facility] Non-Inv Card Lab Procedures Echocardiogram Transthoracic(Leb) [facility] [place] [address] [phone] [place] [address] Referral ID Status Reason Start Date Expiration Visits Visits Date Requested Authorized [id number] Specialty 08/15/2018 08/15/2018 1 1 Service Requested Reason for Visit Diagnostic Test (Routine) - Specialty Diagnoses / Procedures Referred By Contact Nawaf owen To Contact Cardiology Diagnoses Chronic systolic heart failure Danette Maxwell APRN [facility] Non-Inv Card Lab Procedures Echocardiogram Transthoracic(Leb) [facility] [place] [address] [place] [address] Referral ID Status Reason Start Date Expiration Visits Visits Date Requested Authorized [id number] Specialty 08/15/2018 08/15/2018 1 1 Service Requested Encounter Details Date Type Department Care Team Description 08/15/2018 Hospital Encounter Non-Invasive Danette Maxwell Chron ic systolic Cardiology Lab Barbara Gomes APRN heart failure [facility] [place] [address] [place], [place] [phone] (Work) [phone] Social History Tobacco Use Types Packs/Day Years [...] Dolan MD [facility] [place], [place] [address] (Wo rk) 05/28/2022 Laboratory Appointment Lab 05/28/2022 Office Visit Cardiology Zulma Dolan MD [facility] [place] [address] Liz Poole PA [facility] [place] [address] 06/10/2022 Office Visit Dermatology Laura Scherer MD [facility] [address] [place]LOG[address] [place], [place] [address] (Wo rk) documented as [...] Mccollum ? (Age): 1945(73y) Med Rec#: ? [id number] ?Sex: ?M ? Site Loc: ? [facility] ?Ht / Wt: ??172(cm)/81(kg) Pt. Loc: ?Echo Lab ?BSA: ?1.94 Study Date: ?? 08/15/2018 ?Pt. Type: Outpatient Tape: ? Referring: MARY ELLEN Reading: Scott Ortega ([id number]) Modeler: Laura Sargent Diagnosis: *Chronic systolic (congestive) heart [...] E-wave Vmax ?1.2 ?m/sec ? MV deceleration hmse251.4 ? msec ? MV A-wave Vmax ?0.7 [...] ? Mid-Inferior ?Hypokinetic ? Mid-Inferoseptal ?Hypokinetic ? Titus-Septal ? Akinetic ? Titus-Anterior ? Hypokinetic ? Titus-Lateral ?Akinetic ? Titus-Inferior ? Hypokinetic ? Titus-Tip ?Akinetic ? This report has been electronically sign ed by: _ Scott Ortega M.D. ? 08/15/2018 08:17:26 Images reviewed and interpretation ver ied [facility] Cardiac Ultrasound Laboratory Procedure Note Scott Ortega MD - 08/15/2018Format ting of this note might be different from the original. Procedure: Transthoracic Echocardiogram Patient: NATALYA MCBRIDE(Age): [birth year]73y) Med Rec#: [id number] Sex: M Site Loc: [facility] Ht / Wt: 172(cm)/81(kg) Pt. Loc: Echo Lab BSA: 1.94 Study Date: 08/15/2018 Pt. Type: Outpati ent Tape: Referring: MARY ELLEN Reading: Scott Ortega ([id number]) Modeler: Laura Sargent Diagnosis: *Chronic systolic (congestive) heart [...] MV E-wave Vmax 1.2 m/sec MV deceleration chbh449.4 msec MV A-wave Vmax 0.7 m/sec MV [...] Akinetic Mid-Posterolateral Akinetic Mid-Inferior Hypokinetic Mid-Inferoseptal Hypokinetic Titus-Septal Akinetic Titus-Anterior Hypokinetic Titus-Lateral Akinetic Titus-Inferior Hypokinetic Titus-Tip Akinetic This report has been electronically sign ed by: _ Scott Ortega M.D. 08/15/2018 08:17: 26 Images reviewed and interpretation verif ied [facility] Cardiac Ultrasound Laboratory Danette A Hans AWNING SPREADER ECHO ORDERABLES documented in this encounter Visit [...] Routine documented in this encounter Care Teams Subassembly Assembler Relationship Specialty Start Date End Date Lovely Vicente MD PCP - General 04/16/[address] [place] [address] documented as of this encounter
--- OUTSIDE RECORDS SUMMARY | 2022-05-15 08:22 | XMS_ITS | Encounter Summary ---
:1945 Author Organization [facility] Address [facility] [place] [address] Care Team Providers Name Role Phone Lovely Vicente MD Primary Care Provider Encounter Details Date Type Department Care Team Description 10/07/2017 Office Visit Cardiology [place] [facility] Danette Maxwell Chronic systolic heart failu re; [facility] A, PLATE KEEPER S/P CABG x 3; Drive [facility] On amiodarone therapy; [place], [place] Atrial fibrillation, unspecified type; [id number] CARDIOLOGY ASCVD (arteriosclerotic cardiovascular d isease) [phone] [place], [place] [address] Social History Tobacco Use Types [...] - documented in this encounter Progress Notes Brooker Danette A, PLATE KEEPER - 10/07/2017 11:20 AM EDT ID and [...] 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 [...] by Dr. Espino On IV antibiotics at [facility] Today: Mr. Fatima is accompanied [...] Dr. Bains well at [facility] and follow his wound on his right lower extremity. And she will continue to direct antibiotic treatment. Ihave asked that the echocardiogram results be faxed to Dr. Zurita at [facility]. 1. ASCVD Continue ASA, BB and [...] and bone removal by Dr. Aguero at [facility]. Currently receiving IV antibiotics at [facility] ? Plan: 1. A review [...] Dolan MD [facility] [address] [place], [place] [address] (Wo rk) 05/28/2022 Laboratory Appointment Lab 05/28/2022 Office Visit Cardiology Zulma Dolan MD [facility] [place] [address] Liz Poole PA [facility] [place] [address] 06/10/2022 Office Visit Dermatology Laura Scherer MD [facility] [address] [place], [place] [address] (Wo rk) documented as of this encounter Results (ABNORMAL) Basic Metabolic Panel (non-fasting) (10/07/2017 8:48 AM EDT) athologist Signature Glucose Lvl 99 65 - 199 [facility] mg/dL [facility] [...] [facility] Estimated GFR >60 >=60 [facility] Comment: The reported eGFR should be multiplied b y 1.2 for patients. The MDRD is not an appropriate measure o f renal function for patients with body mass extremes or in patients with acute kidney failure. http://iCapital Network.EuroCapital BITEX/DHnkdep http://RealConnex.com/DHMCnkf Specimen Anatomical Collection Method Collection Time Receive d Time (Source) Location / / Volume Laterality Blood specimen 10/07/2017 8:48 AM 018 8:50 (specimen) EDT AM EDT Resulting Agency Comment Spec In Lab Danette Maxwell APRN CHEMISTRY ORDERABLES Performing Organization Address City/State/[place] [address] (ABNORMAL) pro-Brain Natriuretic Peptide (10/07/2017 8:48 AM EDT) P athologist Signature ProBNP 1,170 (H) <=125 [facility] pg/mL [facility] Specimen Anatomical Collection Method Collection Time Receive d Time (Source) Location / / Volume Laterality Blood specimen 10/07/2017 8:48 AM 018 8:50 (specimen) EDT AM EDT Resulting Agency Comment Spec In Lab Danette Maxwell APRN CHEMISTRY ORDERABLES Performing Organization Address City/State/[place] [address] documented in this encounter Visit Diagnoses Diagnosis Chronic systolic heart failure S/P CABG x 3 Postsurgical aortocoronary bypass status On amiodarone therapy Atrial fibrillation, unspecified type ASCVD (arteriosclerotic cardiovascular d isease) Unspecified cardiovascular disease documented in this encounter Care Teams Pet Food Deboner Relationship Specialty Start Date End Date Lovely Vicente MD PCP - General 04/16/[address] [place] [address] documented as of this encounter
--- OUTSIDE RECORDS SUMMARY | 2022-05-15 08:22 | XMS_ITS | Encounter Summary ---
:1945 Author Organization [facility] [place] [address] Care Team Providers Name Role Phone Lovely Vicente MD Primary Care Provider Encounter Details Date Type Department Care Team Description 10/07/2017 Laboratory Appointment Lab 3L [facility] [place] [phone] Social History Tobacco Use Types Packs/Day Years [...] Dolan MD [facility] [place], [place] [address] (Wo rk) 05/28/2022 Laboratory Appointment Lab 05/28/2022 Office Visit Cardiology Zulma Dolan MD [facility] [place] [address] Liz Poole PA [facility] [place] [address] 06/10/2022 Office Visit Dermatology Laura Scherer MD [facility] ER DR [address]-DERMAT ENIDReal [facility] Amy (Wo rk) documented as of [...] Signature Glucose Lvl 99 65 - 199 [facility] mg/dL [facility] Comment: [...] or in patients with acute kidney failure. http://Search Million Culture.WorkVoices/DHnkdep http://Search Million Culture.WorkVoices/DHMCnkf Specimen Anatomical Collection Method Collection Time Receive d Time (Source) Location / / Volume Laterality Blood specimen 10/07/2017 8:48 AM 018 8:50 (specimen) EDT AM EDT Resulting Agency Comment Spec In Lab Danette Maxwell [employer] CHEMISTRY ORDERABLES Performing Organization Address City/[facility]/ZIP Code Phon e Number [address] (ABNORMAL) pro-Brain Natriuretic Peptide (10/07/2017 8:48 AM EDT) athologist Signature ProBNP 1,170 (H) <=125 [facility] pg/mL [facility] Specimen Anatomical Collection Method Collection Time Receive d Time (Source) Location / / Volume Laterality Blood specimen 10/07/2017 8:48 AM 018 8:50 (specimen) EDT AM EDT Resulting Agency Comment Spec In Lab Danette A Hans QUINONES CHEMISTRY ORDERABLES Performing Organization Address City/State/[place] [address] documented in this encounter Visit Diagnoses Diagnosis Chronic systolic heart failure documented in this encounter Care Teams Family Day Carer Relationship Specialty Start Date End Date Lvoely Vicente MD PCP - General 04/16/15 [address] [place] [address] documented as of this encounter
--- OUTSIDE RECORDS SUMMARY | 2022-05-15 08:22 | XMS_ITS | Encounter Summary ---
:1945 Author Organization [facility] [place] [address] Care Team Providers Name Role Phone Lovely Vicente MD Primary Care Provider Reason for Visit Reason Comments Skin Check Encounter Details Date Type Department Care Team Description 07/06/2018 Office Visit Dermatology at [facility], Rigoberto Yarbrough (actinic keratosis); MD SHAY Quick III (seborrheic keratosis); [address] [facility] History of melanoma; [place] [address] Skin exam for malignant neoplasm [phone] [facility] [place], [place] [address] Social History Tobacco Use Types [...] leg - he had vascular surgery in [facility] while he lost several toes, [...] Dolan MD [facility] Dr [place], [place] [address] (Wo rk) 05/28/2022 Laboratory Appointment Lab 05/28/2022 Office Visit Cardiology Zulma Dolan MD [facility] [place] [address] Liz Poole PA [facility] [place] [address] 06/10/2022 Office Visit Dermatology Laura Scherer MD [facility] DR [address] [place], [place] [address] (Wo rk) documented as of this encounter Visit Diagnoses Diagnosis AK (actinic keratosis) Actinic keratosis SK (seborrheic keratosis) Other seborrheic keratosis History of melanoma Personal history of malignant melanoma o f skin Skin exam for malignant neoplasm Screening for malignant neoplasm of the skin documented in this encounter Care Teams Tool Grinder Operator External Relationship Specialty Start Date End Date Lovely Vicente MD PCP - General 04/16/[address] [place] [address] documented as of this encounter
--- OUTSIDE RECORDS SUMMARY | 2022-05-15 08:22 | XMS_ITS | Encounter Summary ---
:1945 Author Organization [facility] [place] [address] Care Team Providers Name Role Phone Lovely Vicente MD Primary Care Provider Encounter Details Date Type Department Care Team Description 01/16/2019 Laboratory Appointment Lab 3L [facility] [place] [phone] Social History Tobacco Use Types Packs/Day Years [...] [facility] [place], [place] [address] (Wo rk) 05/28/2022 Laboratory Appointment Lab 05/28/2022 Office Visit Cardiology Zulma Dolan MD [facility] [place] [address] Liz Poole PA [facility] [place] [address] 06/10/2022 Office Visit Dermatology Laura Scherer MD [facility] ER DR [address]DERMAT [place], [place] [address] (Wo rk) documented as of [...] Organization Address City/State/ZIP [place] [address] (ABNORMAL) Basic Metabolic Panel (non-fasting) (01/16/2019 7:49 AM EDT) athologist Signature Glucose Lvl 105 65 - 199 [facility] mg/dL [facility] Comment: Diabetes: [...] of body mass or the acutely ill. http://[facility]/Family Housing Investmentsnkf eGFR 79 >=60 mL/min/1.73 m?? [facility] Comment: The eGFR was calculated using the CKD-EP I equation. As with all creatinine based estimates of kidney function, eGFR values calculated with the CKD-EPI equation are not accurate in patients wi th acute kidney failure, extremes of body mass or the acutely ill. http://[facility]/Family Housing Investmentsnkf Specimen Anatomical Collection Method Collection Time Receive d Time (Source) Location / / Volume Laterality Blood specimen 01/16/2019 7:49 AM 019 7:55 (specimen) EDT AM EDT Resulting Agency Comment Spec In Lab Danette Maxwell APRN CHEMISTRY ORDERABLES Performing Organization Address City/State/Z[place] [address] documented in this encounter Visit Diagnoses Diagnosis Chronic systolic heart failure documented in this encounter Care Teams Hand I Blocker Relationship Specialty Start Date End Date Lovely Vicente MD PCP - General 04/16/[address] [place] [address] documented as of this encounter
--- OUTSIDE RECORDS SUMMARY | 2022-05-15 08:22 | XMS_ITS | Encounter Summary ---
:1945 Author Organization [facility] Address [address] [facility] [place] [address] Care Team Providers Name Role Phone Lovely Vicente MD Primary Care Provider Reason for Referral Diagnostic Test (Routine) - Specialty Diagnoses / Procedures Referred By Contact Refer red To Contact Cardiology Diagnoses Chronic systolic heart failure Danette Maxwell APRN [facility] Non-Inv Card Lab Procedures Echocardiogram Transthoracic(Leb) [facility] [place] [address] [place] [address] Referral ID Status Reason Start Date Expiration Visits Visits Date Requested Authorized [id number] Specialty 08/15/2018 08/15/2018 1 1 Service Requested Encounter Details Date Type Department Care Team Description 04/18/2018 Office Visit [place]iology [place] [facility] [place]ette Maxwell Chronic systolic heart failu re; [facility] STACIE Gomes On amiodarone therapy; [facility] Ischemic cardiomyopathy; [place], [place] DR ONOFRE (arteriosclerotic cardiovascular d isease) [id number] CARDIOLOGY [phone] [place], [place] [address] Social History Tobacco Use Types Packs/Day Years [...] in this encounter Progress Notes Danette Maxwell, MELTER SUPERVISOR OXYGEN FURNACE - 04/18/2018 10:40 AM EDT ID and [...] popliteal-pedal bypass at [facility] ? Plan: 1. A review of [...] Dolan MD [facility] [address] [place], [place] [address] (Wo rk) 05/28/2022 Laboratory Appointment Lab 05/28/2022 Office Visit Cardiology Zulma Dolan MD [facility] [place] [address] Liz Poole PA [facility] [place] [address] 06/10/2022 Office Visit Dermatology Laura Scherer MD [facility] [address] [place], [place] [address] (Wo rk) documented as of this encounter Results ECHOCARDIOGRAM COMPLETE W CONTRAST (08/15/2018 7:55 AM EST) P athologist Signature EF 35 HEARTLAB SYSTEM Anatomical Region Laterality Modality Other Specimen (Source) Anatomical Location Collection Method / Collectio n Time Received Time / Laterality Volume 08/15/2018 Narrative 08/15/2018 8:18 AM EST Procedure: ?Transthoracic Echocardiogram Patient: ?NATALYA Mccollum ? (Age): 1945(73y) Med Rec#: ? [id number] ?Sex: ?M ? Site Loc: ? [facility] [place] ?Ht / Wt: ??172(cm)/81(kg) Pt. Loc: ?Echo Lab ?BSA: ?1.94 Study Date: ?? 08/15/2018 ?Pt. Type: Outpatient Tape: ? Referring: MARY ELLEN Reading: Scott Ortega ([id number]) Lump Roller: Laura Sargent Diagnosis: *Chronic systolic (congestive) heart [...] E-wave Vmax ?1.2 ?m/sec ? MV deceleration yfxc722.4 ? msec ? MV A-wave Vmax ?0.7 [...] ? Mid-Inferior ?Hypokinetic ? Mid-Inferoseptal ?Hypokinetic ? Ozan-Septal ? Akinetic ? Ozan-Anterior ? Hypokinetic ? Ozan-Lateral ?Akinetic ? Ozan-Inferior ? Hypokinetic ? Ozan-Tip ?Akinetic ? This report has been electronically sign ed by: _ Scott Ortega M.D. ? 08/15/2018 08:17:26 Images reviewed and interpretation verif ied [facility] Cardiac Ultrasound Laboratory Procedure Note Scott Ortega MD - 08/15/2018Format ting of this note might be different from the original. Procedure: Transthoracic Echocardiogram Patient: NATALYA MCBRIDE(Age): [birth year]73y) Med Rec#: [id number] Sex: M [place] Loc[place] [facility] [place] Ht / Wt: 172(cm)/81(kg) Pt. Loc: Echo Lab BSA: 1.94 Study Date: 08/15/2018 Pt. Type: Outpati ent Tape: Referring: MARY ELLEN Reading: Scott Ortega ([id number]) Lump Roller: Laura Sargent Diagnosis: *Chronic systolic (congestive) heart [...] MV E-wave Vmax 1.2 m/sec MV deceleration qflj284.4 msec MV A-wave Vmax 0.7 m/sec MV [...] Akinetic Mid-Posterolateral Akinetic Mid-Inferior Hypokinetic Mid-Inferoseptal Hypokinetic Ozan-Septal Akinetic Ozan-Anterior Hypokinetic Ozan-Lateral Akinetic Ozan-Inferior Hypokinetic Ozan-Tip Akinetic This report has been electronically sign ed by: _ Scott Ortega M.D. 08/15/2018 08:17: 26 Images reviewed and interpretation verif ied [facility] Cardiac Ultrasound Laboratory Danette Maxwell APRN ECHO ORDERABLES (ABNORMAL) Basic Metabolic Panel (non-fasting) (04/18/2018 9:19 AM EDT) P athologist Signature Glucose Lvl 167 65 - 199 [facility] mg/dL [facility] Comment: Diabetes: >=200 mg/dL plus symp toms BUN 18 10 - 20 mg/dL [facility] Creatinine 1.19 0.80 - 1.50 mg/dL [facility] Sodium 147 (H) [...] of body mass or the acutely ill. http://[employer]/[facility] [place] CITYnkf eGFR 70 >=60 mL/min/1.73 m?? [facility] Comment: The eGFR was calculated using the CKD-EP I equation. As with all creatinine based estimates of kidney function, eGFR values calculated with the CKD-EPI equation are not accurate in patients wi th acute kidney failure, extremes of body mass or the acutely ill. http://[employer]/[facility] [place] CITY[place]f Specimen Anatomical Collection Method Collection Time Receive d Time (Source) Location / / Volume Laterality Blood specimen 04/18/2018 9:19 AM 018 9:34 (specimen) EDT AM EDT Resulting Agency Comment Spec In Lab Danette Maxwell APRN CHEMISTRY ORDERABLES Performing Organization Address City/State/[place] [address] (ABNORMAL) pro-Brain Natriuretic Peptide (04/18/2018 9:19 AM EDT) P athologist Signature ProBNP 2,199 (H) <=125 [facility] pg/mL [facility] Specimen Anatomical Collection Method Collection Time Receive d Time (Source) Location / / Volume Laterality Blood specimen 04/18/2018 9:19 AM 018 9:34 (specimen) EDT AM EDT Resulting Agency Comment Spec In Lab Danette Maxwell APRN CHEMISTRY ORDERABLES Performing Organization Address City/State/[place] [address] documented in this encounter Visit Diagnoses Diagnosis Chronic systolic heart failure On amiodarone therapy Ischemic cardiomyopathy Other specified forms of chronic ischemi c heart disease ASCVD (arteriosclerotic cardiovascular d isease) Unspecified cardiovascular disease Chronic systolic heart failure documented in this encounter Care Teams Vice President Compliance Relationship Specialty Start Date End Date Lovely Vicente MD PCP - General 04/16/[address] [place] [address] documented as of this encounter
--- OUTSIDE RECORDS SUMMARY | 2022-05-15 08:22 | XMS_ITS | Encounter Summary ---
:1945 Author Organization [facility] [place] [address] Care Team Providers Name Role Phone Lovely Vicente MD Primary Care Provider Reason for Visit Reason Onset Date Comments Other 11/11/2017 Please call [facility] Encounter Details Date Type Department Care Team Description 11/11/2017 Telephone Cardiology at [facility] Danette Maxwell, Other (Please call [facility] PHYSICIAN CODER [facility] ) [place] [address] CARDIOLOGY [place], [place] [address] (Wo rk) Social History Tobacco [...] Dolan MD [facility] [address] [place], [place] [address] (Wo rk) 05/28/2022 Laboratory Appointment Lab 05/28/2022 Office Visit Cardiology Zulma Dolan MD [facility] [place] [address] Liz Poole PA [facility] [place] [address] 06/10/2022 Office Visit Dermatology Laura Scherer MD [facility] [address] [place], [place] [address] (Wo rk) documented as of this encounter Visit Diagnoses Not on filedocumented in this encounter Care Teams Paving Bed Maker Relationship Specialty Start Date End Date Lovely Vicente MD PCP - General 04/16/15 [facility] [address] [place] [address] documented as of this encounter
--- OUTSIDE RECORDS SUMMARY | 2022-05-15 08:22 | XMS_ITS | Encounter Summary ---
:1945 Author Organization [facility] [place] [address] Care Team Providers Name Role Phone Lovely Vicente MD Primary Care Provider Encounter Details Date Type Department Care Team Description 11/29/2017 Laboratory Lab 3L Barbara Chronic systoli c congestive heart failure; Appointment [facility] ASCVD (ar teriosclerotic cardiovascular disease); Hospital Cardiomyopathy, [place] [address] Social History Tobacco Use Types [...] MD [facility] [place] [address] [place], [place] [address] (Wo rk) 05/28/2022 Laboratory Appointment Lab 05/28/2022 Office Visit Cardiology Zulma Dolan MD [facility] [place] [address] Liz Poole PA [facility] [place] [address] 06/10/2022 Office Visit Dermatology Laura Scherer MD [facility] ER [address] [place], [place] [address] (Wo rk) documented as of [...] Signature PT 23.0 (H) 9.4 - 12.5 [facility] LABORATORY INR 2.1 [facility] [...] Address City/State/[place] [address] (ABNORMAL) Basic Metabolic Panel (non-fasting) (11/29/2017 8:22 AM EDT) P athologist Signature Glucose Lvl 217 (H) 65 - 199 [facility] mg/dL [facility] [...] or in patients with acute kidney failure. http://[employer]/DHnkdep http://Dekkun/DHMCnkf Specimen Anatomical Collection Method Collection Time Receive d Time (Source) Location / / Volume Laterality Blood specimen 11/29/2017 8:22 AM 018 8:29 (specimen) EDT AM EDT Resulting Agency Comment Spec In Lab Danette Maxwell APRN CHEMISTRY ORDERABLES Performing Organization Address City/State/[place] [address] (ABNORMAL) pro-Brain Natriuretic Peptide (11/29/2017 8:22 AM EDT) P athologist Signature ProBNP 1,769 (H) <=125 [facility] pg/mL [facility] LABORATORY Specimen Anatomical Collection Method Collection Time Receive d Time (Source) Location / / Volume Laterality Blood specimen 11/29/2017 8:22 AM 018 8:29 (specimen) EDT AM EDT Resulting Agency Comment Spec In Lab Danette Maxwell APRN CHEMISTRY ORDERABLES Performing Organization Address City/State/ZIP Code Phon e Number [address] Lavender Tube HOLD (11/29/2017 8:14 AM EDT) Patholo gist Method Time Signature Lavender Hold Sample in [facility] lab. [facility] LABOR[facility]ORY Specimen Anatomical Collection Method Collection Time Receive d Time (Source) Location / / Volume Laterality Blood specimen No Charge / 11/29/2017 8:14 AM 018 8:29 (specimen) Unknown EDT AM EDT Lovely Vicente MD HEMATOLOGY ORDERABLES Performing Organization Address City/State/[place] [address] documented in this encounter Visit Diagnoses Diagnosis Chronic systolic congestive heart failur e Chronic systolic heart failure ASCVD (arteriosclerotic cardiovascular d isease) Unspecified cardiovascular disease Cardiomyopathy, ischemic Other specified forms of chronic ischemi c heart disease documented in this encounter Care Teams Fire Marshal Refinery Relationship Specialty Start Date End Date Lovely Vicente MD PCP - General 04/16/[address] [place] [address] documented as of this encounter
--- OUTSIDE RECORDS SUMMARY | 2022-05-15 08:22 | XMS_ITS | Encounter Summary ---
:1945 Author Organization [facility] [address] Care Team Providers Name Role Phone Lovely Vicente MD Primary Care Provider Encounter Details Date Type Department Care Team Description 08/15/2018 Laboratory Lab 3L Katalina Chronic systoli c heart failure; Appointment [facility] ASCVD (ar teriosclerotic cardiovascular disease) [place] [address] Social History Tobacco Use Types [...] MD [facility] [place], [place] [address] (Wo rk) 05/28/2022 Laboratory Appointment Lab 05/28/2022 Office Visit Cardiology Zulma Dolan MD [facility] [place] [address] Liz Poole PA [facility] [place] [address] 06/10/2022 Office Visit Dermatology Laura Scherer MD [facility] ER [address] [place], [place] [address] (Wo rk) documented as of [...] Signature Glucose Lvl 116 65 - 199 [facility] mg/dL [facility] Comment: Diabetes: [...] LABORATORY Calcium 9.0 8.5 - 10.5 mg/dL [facility] Estimated GFR 68 >=60 mL/min/1.73 m?? [facility] Comment: The eGFR was calculated using the CKD-EP I equation. As with all creatinine based estimates of kidney function, eGFR values calculated with the CKD-EPI equation are not accurate in patients wi th acute kidney failure, extremes of body mass or the acutely ill. http://[employer]/[facility] ASSOCIATIONnkf eGFR 79 >=60 mL/min/1.73 m?? [facility] Comment: The eGFR was calculated using the CKD-EP I equation. As with all creatinine based estimates of kidney function, eGFR values calculated with the CKD-EPI equation are not accurate in patients wi th acute kidney failure, extremes of body mass or the acutely ill. http://[employer]/[facility] ASSOCIATIONnkf Specimen Anatomical Collection Method Collection Time Receive d Time (Source) Location / / Volume Laterality Blood specimen 08/15/2018 8:04 AM 019 8:20 (specimen) EST AM EST Resulting Agency Comment Spec In Lab Danette Maxwell APRN CHEMISTRY ORDERABLES Performing Organization Address City/State/[place] [address] Lipid Panel (08/15/2018 8:04 AM EST) P athologist Signature Chol, Total 75 mg/dL [facility] Comment: Lower Risk: <200 mg/dL Average Risk: 200-239 mg/dL Higher Risk: >el=549 mg/dL Triglycerides 185 mg/dL [facility] Comment: Average Risk/Lower Risk: <150 mg/dL Borderline High Risk: 150-199 mg/dL High Risk: 200-499 mg/dL Very High Risk: >da=941 mg/dL HDL 32 mg/dL [facility] Comment: Males: ?? Higher Risk: <40 mg/dL Females: ?? HIgher Risk: <50 mg/dL LDL Cholesterol 6 mg/dL [facility] Comment: Lowest Risk: <100 mg/dL Lower Risk: 100-129 mg/dL Borderline High Risk: 130-159 mg/dL High Risk: 160-189 mg/dL Very High Risk: >vv=824 mg/dL Chol/HDL Ratio 2.3 ratio [facility] Lipid Interpretation See Note [facility] Comment: Lipid management should be guided by a p atient? s ASCVD risk, goals and preferences. ACC/AHA Guidelines recommend high intens ity statin if clinical ASCVD or LDL greater than or equal to 190 mg/dL. http://ClearFlow.com/ZVE-AKW-Nwybobqbm Adults aged 40-75 with LDL 70-189 mg/dL should have their 10 year ASCVD risk estimated with the ACC/AHA ASCVD risk es timator http://tools.acc.org/JYSGS-Lmaw-Hmtgtecq r/ Statin should be discussed if risk [...] Organization Address City/State/[place] [address] (ABNORMAL) pro-Brain Natriuretic Peptide (08/15/2018 8:04 AM EST) athologist Signature ProBNP 1,797 (H) <=125 [facility] pg/mL [facility] Specimen Anatomical Collection Method Collection Time Receive d Time (Source) Location / / Volume Laterality Blood specimen 08/15/2018 8:04 AM 019 8:20 (specimen) EST AM EST Resulting Agency Comment Spec In Lab Danette Maxwell APRN CHEMISTRY ORDERABLES Performing Organization Address City/State/[place] [address] documented in this encounter Visit Diagnoses Diagnosis Chronic systolic heart failure ASCVD (arteriosclerotic cardiovascular d isease) Unspecified cardiovascular disease documented in this encounter Care Teams Engineer Geophysical Laboratory Relationship Specialty Start Date End Date Lovely Vicente MD PCP - General 04/16/[address] [place] [address] documented as of this encounter
--- OUTSIDE RECORDS SUMMARY | 2022-05-15 08:22 | XMS_ITS | Encounter Summary ---
:1945 Author Organization [facility] [place] [address] Care Team Providers Name Role Phone Lovely Vicente MD Primary Care Provider Reason for Visit Reason Comments Follow-up Skin Check Encounter Details Date Type Department Care Team Description 01/06/2018 Office Visit Dermatology at [facility]; Abdelrahman HOOPER MD History of melanoma; [address] [facility] [place] [address] [facility] [place], [place] [address] Social History Tobacco Use Types [...] [facility] [address] [place], [place] [address] (Wo rk) 05/28/2022 Laboratory Appointment Lab 05/28/2022 Office Visit Cardiology Zulma Dolan MD [facility] [place] [address] Liz Poole PA [facility] [place] [address] 06/10/2022 Office Visit Dermatology Laura Scherer MD [facility] [address] [place], [place] [address] (Wo rk) documented as of this encounter Visit Diagnoses Diagnosis Multiple nevi Benign neoplasm of skin, site unspecifie d History of melanoma Personal history of malignant melanoma o f skin Seborrheic keratosis Other seborrheic keratosis documented in this encounter Care Teams Supervisor Electronics Inspection Relationship Specialty Start Date End Date Lovely Vicente MD PCP - General 04/16/[address] [place] [address] documented as of this encounter
--- OUTSIDE RECORDS SUMMARY | 2022-05-15 08:22 | XMS_ITS | Encounter Summary ---
:1945 [place] [address] Care Team Providers Name Role Phone Lovely Vicente MD Primary Care Provider Encounter Details Date Type Department Care Team Description 08/15/2018 Laboratory Appointment [facility] [address] Social History Tobacco Use Types Packs/Day [...] MD [facility] er [place], [place] [address] (Wo rk) 05/28/2022 Laboratory Appointment Lab 05/28/2022 Office Visit Cardiology Zulma Dolan [place] [address] Liz Poole PA [facility] [place] [address] 06/10/2022 Office Visit Dermatology Laura Scherer MD [facility] ER [address] [place], [place] [address] (Wo rk) documented as [...] 12.5 [facility] LABORATORY INR 2.1 [facility] Comment: [...] Address City/State/[place] [address] documented in this encounter Visit Diagnoses Not on filedocumented in this encounter Care Teams Automobile Body Repair Supervisor Relationship Specialty Start Date End Date Lovely Vicente MD PCP - General 04/16/[address] [place] [address] documented as of this encounter
--- OUTSIDE RECORDS SUMMARY | 2022-05-15 08:22 | XMS_ITS | Encounter Summary ---
:1945 Author Organization [facility] [place] [address] Care Team Providers Name Role Phone Lvoely Vicente MD Primary Care Provider Encounter Details Date Type Department Care Team Description 07/28/2019 Office Visit Cardiology at [facility] Danette Maxwell Chronic systolic heart failu re; [facility] A, STACIE ASHD (arteriosclerotic heart disease); Drive [facility] S/P CABG x 3; [place], [place] MARIA VICTORIA (obstructive sleep apnea) on CPAP; [phone] CARDIOLOGY Mixed hyperlipidemia [phone] [place], [place] [address] Social History Tobacco Use Types [...] in this encounter Progress Notes Danette Maxwell, SHADOWGRAPH OPERATOR - 07/28/2019 9:40 AM EST Images [...] present. 07/07/2019 - 07/21/2019 Zio Patch Lead Clinical Research Coordinator The patient had a minimum heart rate [...] K+ 4.5 today 6. Post-op atrial fibrillation [id number] (CHF, HTN, DM, vascular disease, thromboembolism) [...] advised: Refer to EP (Dr. Mcelroy in [place]) 5. Heart Failure Clinic follow up scheduled for: 3 months with proBNP and BMP Danette Maxwell APRN 07/28/2019 documented in this encounter Plan of Treatment Upcoming Encounters Date Type Specialty Care Team Description 05/28/2022 Appointment Cardiology Zulma Dolan MD [facility] [place], [place] [address] (Wo rk) 05/28/2022 Laboratory Appointment Lab 05/28/2022 Office Visit Cardiology Zulma Dolan MD [facility] [place] [address] Liz Poole PA [facility] [place] [address] 06/10/2022 Office Visit Dermatology Laura Scherer MD [facility] [address] [place], [place] [address] (Wo rk) documented as of this encounter Results (ABNORMAL) Basic Metabolic Panel (non-fasting) (07/28/2019 8:36 AM EST) P athologist Signature Glucose Lvl 153 65 - 199 [facility] mg/dL [facility] Comment: [...] of body mass or the acutely ill. http://[employer]/[facility] Psych[facility] Hospitalk eGFR 81 >=60 mL/min/1.73 m?? [facility] Comment: The eGFR was calculated using the CKD-EP I equation. As with all creatinine based estimates of kidney function, eGFR values calculated with the CKD-EPI equation are not accurate in patients wi th acute kidney failure, extremes of body mass or the acutely ill. http://[employer]/[facility] – ATOKAnkf Specimen Anatomical Collection Method Collection Time Receive d Time (Source) Location / / Volume Laterality Blood specimen 07/28/2019 8:36 AM 020 8:46 (specimen) EST AM EST Resulting Agency Comment Spec In Lab Danette Maxwell APRN CHEMISTRY ORDERABLES Performing Organization Address City/State/ZIP Code Phon e Number [address] (ABNORMAL) pro-Brain Natriuretic Peptide (07/28/2019 8:36 AM EST) athologist Signature ProBNP 647 (H) <=125 pg/mL [facility] Specimen Anatomical Collection Method Collection Time Receive d Time (Source) Location / / Volume Laterality Blood specimen 07/28/2019 8:36 AM 020 8:46 (specimen) EST AM EST Resulting Agency Comment Spec In Lab Danette Maxwell APRN CHEMISTRY ORDERABLES Performing Organization Address City/[facility]/[place] [address] documented in this encounter Visit Diagnoses Diagnosis Chronic systolic heart failure ASHD (arteriosclerotic heart disease) Coronary atherosclerosis of unspecified type of vessel, [place] or graft S/P CABG x 3 Postsurgical aortocoronary bypass status MARIA VICTORIA (obstructive sleep apnea) on CPAP Obstructive sleep apnea (adult) (pediatr ic) Mixed hyperlipidemia documented in this encounter Care Teams Supervisor Brine Relationship Specialty Start Date End Date Lovely Vicente MD PCP - General 04/16/[address] [place] [address] documented as of this encounter
--- OUTSIDE RECORDS SUMMARY | 2022-05-15 08:22 | XMS_ITS | Encounter Summary ---
:1945 Author Organization [facility] [place] [address] Care Team Providers Name Role Phone Lovely Vicente MD Primary Care Provider Encounter Details Date Type Department Care Team Description 09/07/2017 Laboratory Appointment Lab 3L [facility] [place] [id number] Social History Tobacco Use Types Packs/Day Years [...] MD [facility] er [place], [place] [address] (Wo rk) 05/28/2022 Laboratory Appointment Lab 05/28/2022 Office Visit Cardiology Zulma Dolan MD [facility] [place] [address] Liz Poole PA [facility] [place] [address] 06/10/2022 Office Visit Dermatology Laura Scherer MD [facility] ER DR TE[address]MAT [place], [place] [address] (Wo rk) documented as of this encounter [...] PM EST) athologist Signature Thyroglobulin 1.4 <=54.9 [facility] ng/mL [facility] Comment: Thyroglobulin levels may be [...] Address City/State/[place] [address] TSH (09/07/2017 2:41 PM EST) athologist Signature TSH 3.93 0.27 - 4.20 [facility] Specimen Anatomical Collection Method Collection Time Receive d Time (Source) Location / / Volume Laterality Blood specimen 09/07/2017 2:41 PM 018 2:46 (specimen) EST PM EST Resulting Agency Comment Spec In Lab Luz Prescott MD CHEMISTRY ORDERABLES Performing Organization Address City/State/[place] [address] documented in this encounter Visit Diagnoses Diagnosis Hx of papillary thyroid carcinoma Personal history of malignant neoplasm o f thyroid documented in this encounter Care Teams Change Management Consultant Relationship Specialty Start Date End Date Loveyl Vicente MD PCP - General 04/16/[address] [place] [address] documented as of this encounter
--- OUTSIDE RECORDS SUMMARY | 2022-05-15 08:22 | XMS_ITS | Encounter Summary ---
:1945 Author Organization [facility] [place] [address] Care Team Providers Name Role Phone Lovely Vicente MD Primary Care Provider Reason for Visit Reason Onset Date Comments Other 03/24/2019 cardiac clearance ne eded Encounter Details Date Type Department Care Team Description 03/24/2019 Telephone Cardiology at [facility] Danette Maxwell, Other (cardiac [facility] HEAD SOFT SUGAR OPERATOR clearance needed) [place] [address] CARDIOLOGY [place], [place] 0[address] (Wo rk) Social History Tobacco [...] AM EDT Leonela from [facility] [place] called requesting cardiac clearance for this patient who is to have a colonoscopy on 04/04/19. He is on anticoagulation and they will need to bridge him. Their phone # [phone], fax# [phone]. Thank you. documented in this encounter Plan of Treatment Upcoming Encounters Date Type Specialty Care Team Description 05/28/2022 Appointment Cardiology Zulma Dolan MD [facility] [place], [place] 0[address] (Wo rk) 05/28/2022 Laboratory Appointment Lab 05/28/2022 Office Visit Cardiology Zulma Dolan MD [facility] [place] [address] Lzi Poole PA [facility] [place] [address] 06/10/2022 Office Visit Dermatology Laura Scherer MD [facility] DR [address] [place], [place] [address] (Wo rk) documented as of this encounter Visit Diagnoses Not on filedocumented in this encounter Care Teams Security Solutions Engineer Relationship Specialty Start Date End Date Lovely Vicente MD PCP - General 04/16/[address] [place] [address] documented as of this encounter
--- OUTSIDE RECORDS SUMMARY | 2022-05-15 08:22 | XMS_ITS | Encounter Summary ---
:1945 [place] [address] Care Team Providers Name Role Phone Lovely Vicente MD Primary Care Provider Encounter Details Date Type Department Care Team Description 11/29/2017 Hospital Encounter Radiology Library at Estefany Maxwell Pain [facility] DENTAL MANAGER [facility] [place] [address] CARDIOLOGY [phone] [place], [place] [address] (Wo rk) Social History [...] Cardiology Zulma Dolan MD [facility] [place], [place] [address] (Wo rk) 05/28/2022 Laboratory Appointment Lab 05/28/2022 Office Visit Cardiology Zulma Dolan MD [facility] [place] [address] Liz Poole PA [facility] [place] [address] 06/10/2022 Office Visit Dermatology Laura Scherer MD [facility] [address]DERMAT [place], [place] [address] [...] for storage only and is aut o-finalizing. aDnette Maxwell APRN IMG FILM LIBRARY ORDERABLES Performing Organization Address City/State/ZIP Code Phon e Number [place], [place] documented in this encounter Visit Diagnoses Diagnosis Pain Generalized pain documented in this encounter Care Teams Head Miller Relationship Specialty Start Date End Date Lovely Vicente MD PCP - General 04/16/[address] [place] [address] documented as of this encounter
--- OUTSIDE RECORDS SUMMARY | 2022-05-15 08:22 | XMS_ITS | Encounter Summary ---
:1945 Author Organization [facility] [place] [address] Care Team Providers Name Role Phone Lovely Vicente MD Primary Care Provider Encounter Details Date Type Department Care Team Description 09/16/2017 Hospital [place] [address] Social History Tobacco Use Types Packs/Day [...] Zulma Dolan MD [facility] [place], [place] [address] (Wo rk) 05/28/2022 Laboratory Appointment Lab 05/28/2022 Office Visit Cardiology Zulma Dolan MD [facility] [place] [address] Liz Poole PA [facility] [place] [address] 06/10/2022 Office Visit Dermatology Laura Scherer MD [facility] [address] [place], [place] [address] (Wo rk) documented as of [...] [facility] Method Time Signature Surgical [id number] ? Location: [facility] Pathology [place] Report The signing pathologist has (i) examined [...] Henrique Flower Verified: ??09/24/2017 ?Pathologist Performed at: ??-[facility] Dept. of Pathology, [place], [place] CLINICAL INFORMATION Specimen Submitted: A - [...] Organization Address City/State/[place] [address] documented in this encounter Visit Diagnoses Not on filedocumented in this encounter Care Teams Engrosser Relationship Specialty Start Date End Date Lovely Vicente MD PCP - General 04/16/[address] [place] [address] documented as of this encounter
--- OUTSIDE RECORDS SUMMARY | 2022-05-15 08:23 | XMS_ITS | Encounter Summary ---
:1945 Author Organization [facility] [place] [address] Care Team Providers Name Role Phone Lovely Vicente MD Primary Care Provider Encounter Details Date Type Department Care Team Description 09/07/2017 Office Visit Endocrinology at [facility] Maria Ines Stallings of [facility] MD [place] [address] CENTER [phone] ENDOCRINOLOGY DEPT [place], [place] 0[address] Social History Tobacco Use Types [...] Dolan MD [facility] er Dr [place], [place] 0[address] (Wo rk) 05/28/2022 Laboratory Appointment Lab 05/28/2022 Office Visit Cardiology Zulma Dolan MD [facility] [place] [address] Liz Poole PA [facility] [place] [address] 06/10/2022 Office Visit Dermatology Laura Scherer MD [facility] ER DR TEJA [address]MAT [place], [place] [address] (Wo rk) documented as of this encounter Visit Diagnoses Diagnosis Hx of papillary thyroid carcinoma Personal history of malignant neoplasm o f thyroid documented in this encounter Care Teams Stringer Up Soldering Machine Relationship Specialty Start Date End Date Lovely Vicente MD PCP - General 04/16/15 [facility] [address] [place] [address] documented as of this encounter
--- OUTSIDE RECORDS SUMMARY | 2022-05-15 08:23 | XMS_ITS | Encounter Summary ---
:1945 Author Organization [facility] [place] [address] Care Team Providers Name Role Phone Lovely Vicente MD Primary Care Provider Encounter Details Date Type Department Care Team Description 08/19/2017 Hospital Encounter XRay at [facility] Martha Teague, S/P CABG x 3 [address] [facility] [place] [address] [place] [address] RD [phone] [facility] [place], [place] [address] (Wo rk) Social History [...] Dolan MD [facility] [place], [place] [address] (Wo rk) 05/28/2022 Laboratory Appointment Lab 05/28/2022 Office Visit Cardiology Zulma Dolan MD [facility] [place] [address] Liz Poole PA [facility] [place] [address] 06/10/2022 Office Visit Dermatology Laura Scherer MD [facility] DR [address] [place], [place] [address] (Wo rk) documented [...] 2017 EXAMINATION: XR CHEST PA AND LATERAL (Appy HotelIC) CLINICAL HISTORY: CABG x 3 TECHNIQUE: PA [...] status documented in this encounter Care Teams Market Basket Maker Relationship Specialty Start Date End Date Lovely Vicente MD PCP - General 04/16/[address] [place], [place] [address]Y [facility] 1 [place] [address] documented as of this encounter
--- OUTSIDE RECORDS SUMMARY | 2022-05-15 08:23 | XMS_ITS | Encounter Summary ---
:1945 Author Organization [facility] [place] [address] Care Team Providers Name Role Phone Lovely Vicente MD Primary Care Provider Encounter Details Date Type Department Care Team Description 08/19/2017 Office Visit Vascular Surgery at [place], PAD (peripheral artery [facility] [address] SQL DEVELOPER disease) [facility] [address] [place], [place] VASCULAR SURGERY [address] [place] [address] [phone] Social History Tobacco Use Types Packs/Day Years [...] Appointment Cardiology Zulma Dolan MD [facility] [place], [place] [address] (Wo rk) 05/28/2022 Laboratory Appointment Lab 05/28/2022 Office Visit Cardiology Zulma Dolan MD [facility] [address] Liz Poole PA [facility] [place] [address] 06/10/2022 Office Visit Dermatology Laura Scherer MD [facility] [address]DERMAT [place], [place] [address] (Wo rk) documented as of this encounter Visit Diagnoses Diagnosis PAD (peripheral artery disease) Peripheral vascular disease, unspecified documented in this encounter Care Teams Clinical Project Leader Relationship Specialty Start Date End Date Lovely Vicente MD PCP - General 04/16/[address] [place] [address] documented as of this encounter
--- OUTSIDE RECORDS SUMMARY | 2022-05-15 08:23 | XMS_ITS | Encounter Summary ---
:1945 Author Organization [facility] [place] [address] Care Team Providers Name Role Phone Lovely Vicente MD Primary Care Provider Encounter Details Date Type Department Care Team Description 09/06/2017 Telephone Vascular Surgery at [facility] Ninfa Clark, [place] [address] Social History Tobacco Use Types Packs/Day [...] Dolan MD [facility] [place], [place] 0[address] (Wo rk) 05/28/2022 Laboratory Appointment Lab 05/28/2022 Office Visit Cardiology Zulma Dolan MD [facility] [place] [address] Liz Poole PA [facility] [place] [address] 06/10/2022 Office Visit Dermatology Laura Shcerer MD [facility] DR [address]DERMAT [place], [place] [address] (Wo rk) documented as of this encounter Visit Diagnoses Not on filedocumented in this encounter Care Teams Alpine Patroller Relationship Specialty Start Date End Date Lovely Vicente MD PCP - General 04/16/[address] [place] [address] documented as of this encounter
--- OUTSIDE RECORDS SUMMARY | 2022-05-15 08:23 | XMS_ITS | Encounter Summary ---
:1945 Author Organization [facility] [place] [address] Care Team Providers Name Role Phone Lovely Vicente MD Primary Care Provider Encounter Details Date Type Department Care Team Description 09/03/2017 Telephone Vascular Surgery at [facility] Ninfa Clark, [place] [address] Social History Tobacco Use Types Packs/Day [...] Clark, RN - 09/03/2017 4:15 PM EST ePter from the [facility] called today asking for a script for lidocaine down his VAC tubing prior to dressing changes to help with the discomfort of the change. Burnishing Machine Operator told the [facility] that I [...] Cardiology Zulma Dolan MD [facility] [place], [place] [address] (Wo rk) 05/28/2022 Laboratory Appointment Lab 05/28/2022 Office Visit Cardiology Zulma Dolan MD [facility] [address] Liz Poole PA [facility] [place] [address] 06/10/2022 Office Visit Dermatology Laura Scherer MD [facility] DR [address] [place], [place] [address] (Wo rk) documented as of this encounter Visit Diagnoses Not on filedocumented in this encounter Care Teams Parts Room Associate Relationship Specialty Start Date End Date Lovely Vicente MD PCP - General 04/16/[address] [place] [address] [address] [facility] 1 [place] [address] documented as of this encounter
--- OUTSIDE RECORDS SUMMARY | 2022-05-15 08:23 | XMS_ITS | Encounter Summary ---
:1945 Author Organization [facility] [place] [address] Care Team Providers Name Role Phone Lovely Vicente MD Primary Care Provider Reason for Referral Diagnostic Test (Routine) - Closed Specialty Diagnoses / Procedures Referred By Contact Refer red To Contact Cardiology Diagnoses Ischemic cardiomyopathy Acute on chronic systolic congestive heart failure Danette Maxwell APRN [facility] Non-Inv Card Lab Procedures Echocardiogram Transthoracic(Leb) [facility] [place] [address] [place] [address] Referral ID Status Reason Start Date Expiration Date Visits V isits Requested Authorized [id number] Closed Specialty 08/30/2017 08/30/2018 1 1 Service Requested Encounter Details Date Type Department Care Team Description 08/26/2017 Office Visit Cardiology at [facility] Danette Maxwell Ischemic cardiomyopathy; [facility] STACIE Gomes Acute on chronic systolic congestive hea rt failure ; Drive [facility] ASCVD (arteriosclerotic card iovascular disease); [place], [place] PAF (paroxysmal atrial fibrillation); [address] CARDIOLOGY PAD (peripheral artery disease) [phone] [place], [place] [address] Social History Tobacco Use Types Packs/Day Years [...] and swollen 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 with embolization to the [...] Zulma Dolan MD [facility] [place], [place] [address] (Wo rk) 05/28/2022 Laboratory Appointment Lab 05/28/2022 Office Visit Cardiology Zulma Dolan MD [facility] [place] [id number] Liz Poole PA [facility] [place] [address] 06/10/2022 Office Visit Dermatology Laura Scherer MD [facility] DR [address] [place], [place] [address] (Wo rk) documented as of this encounter Results ECHOCARDIOGRAM COMPLETE W CONTRAST (10/07/2017 10:23 AM EDT) athologist Signature EF 45 [facility] SYSTEM Anatomical Region Laterality Modality Other Specimen (Source) Anatomical Location Collection Method / Collectio n Time Received Time / Laterality Volume 10/07/2017 Narrative 10/07/2017 11:13 AM EDT Procedure: ?Transthoracic Echocardiogram Patient: ?NATALYA Mccollum ? (Age): 1945(72y) Med Rec#: ? [id number] ?Sex: ?M ? Site Loc: ? [facility] ?Ht / Wt: ??173(cm)/82(kg) Pt. Loc: ?Echo Lab ?BSA: ?1.96 Study Date: ?? 10/07/2017 ?Pt. Type: Outpatient Tape: ? Referring: Danette Maxwell Reading: Iker Cuevas ([id number]) Body Mechanic: Yonathan Bocanegra Diagnosis: *ICD-10-PCS Ischemic cardiomyopathy (I2 [...] E-wave Vmax ?1.2 ?m/sec ? MV deceleration [id number] ?msec ? MV A-wave Vmax ?1 ?m/sec [...] ? Mid-Inferior ?Hypokinetic ? Mid-Inferoseptal ?Hypokinetic ? [place]-Septal ? Akinetic ? [place]-Anterior ? Hypokinetic ? [place]-Lateral ?Hypokinetic ? [place]-Inferior ? Hypokinetic ? [place]-Tip ?Akinetic ? This report has been electronically sign ed by: _ Iker Cuevas M.D. ? 10/07/2017 11:12:34 Images reviewed and interpretation [facility] Cardiac Ultrasound Laboratory Procedure Note Iker Cuevas MD - 10/07/2017Formatti ng of this note might be different from the original. Procedure: Transthoracic Echocardiogram Patient: NATALYA Mccollum (Age): [birth year]72y) Med Rec#: [id number] Sex: M Site Loc: [facility] Ht / Wt: 173(cm)/82(kg) Pt. Loc: Echo Lab BSA: 1.96 Study Date: 10/07/2017 Pt. Type: Outpati ent Tape: Referring: Danette Maxwell Reading: Iker Cuevas ([id number]) Body Mechanic: Yonathan Bocanegra Diagnosis: *ICD-10-PCS Ischemic cardiomyopathy (I2 [...] MV E-wave Vmax 1.2 m/sec MV deceleration [id number] msec MV A-wave Vmax 1 m/sec MV [...] Akinetic Mid-Posterolateral Hypokinetic Mid-Inferior Hypokinetic Mid-Inferoseptal Hypokinetic [place]-Septal Akinetic [facility]-Anterior Hypokinetic [facility]-Lateral Hypokinetic [facility]-Inferior Hypokinetic [facility]-Tip Akinetic This report has been electronically sign ed by: _ Iker Cuevas M.D. 10/07/2017 11:12 :34 Images reviewed and interpretation [facility] Cardiac Ultrasound Laboratory Danette Maxwell APRN ECHO ORDERABLES Basic Metabolic Panel (non-fasting) (08/26/2017 2:00 PM EST) P athologist Signature Glucose Lvl 98 65 - 199 [facility] mg/dL [facility] Comment: Diabetes: >=200 mg/dL plus symp toms BUN 20 10 - 20 mg/dL [facility] Creatinine 1.17 0.80 - 1.50 mg/dL [facility] [...] or in patients with acute kidney failure. [email or web address] [email or web address] Specimen Anatomical Collection Method Collection Time Receive d Time (Source) Location / / Volume Laterality Blood specimen 08/26/2017 2:00 PM 018 2:15 (specimen) EST PM EST Resulting Agency Comment Spec In Lab Danette Maxwell APRN CHEMISTRY ORDERABLES Performing Organization Address City/State/ZIP Code Phon e Number [address] (ABNORMAL) pro-Brain Natriuretic Peptide (08/26/2017 2:00 PM EST) P athologist Signature ProBNP 2,373 (H) <=125 [facility] RYAN pg/mL [facility] Specimen Anatomical Collection Method Collection Time Receive d Time (Source) Location / / Volume Laterality Blood specimen 08/26/2017 2:00 PM 018 2:15 (specimen) EST PM EST Resulting Agency Comment Spec In Lab Danette Maxwell APRN CHEMISTRY ORDERABLES Performing Organization Address City/State/[place] [address] documented in this encounter [...] documented in this encounter Care Teams Concrete Form Setter And Finisher Relationship Specialty Start Date End Date Lovely Vicente MD PCP - General 04/16/[address] [place] [address] documented as of this encounter
--- OUTSIDE RECORDS SUMMARY | 2022-05-15 08:23 | XMS_ITS | Encounter Summary ---
:1945 Author Organization [facility] [place] [address] Care Team Providers Name Role Phone Lovely Vicente MD Primary Care Provider Reason for Visit Reason Comments Follow-up Encounter Details Date Type Department Care Team Description 08/19/2017 Office Visit Cardiac Surgery at [place], Jock S/P C ABG (coronary [facility] N, artery bypass graft) [facility] [place] CARDIOTHORACIC [address] SURGERY [phone] [place], [place] [address] Social History Tobacco Use Types [...] office. Best personal regards, Yuan [facility] MD [phone] documented in this encounter Plan of Treatment Upcoming Encounters Date Type Specialty Care Team Description 05/28/2022 Appointment Cardiology Zulma Dolan MD [facility] er Dr [place] 0[address] (Wo rk) 05/28/2022 Laboratory Appointment Lab 05/28/2022 Office Visit Cardiology Zulma Dolan MD [facility] [place] [address] Liz Poole PA [facility] [place] [address] 06/10/2022 Office Visit Dermatology Laura Scherer MD [facility] ER DR [address] [place] [address] (Wo rk) documented as of this encounter [...] 454 ms MUSE SYSTEM (Bezet) Calculated P [place] 20 degrees MUSE SYSTEM Calculated R [place] -29 degrees MUSE SYSTEM Calculated T [place] 121 degrees MUSE SYSTEM INTERPRETATION Normal sinus rhythm MUSE SYSTEM Inferior infarct (cited on or before 25-JAN-2013) Anterior 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) T wave abnormality, consider lateral ischemia Abnormal ECG When compared with ECG of 06-AUG-2017 12:37, No signif icant change was found Confirmed by MD Luci, Taurus Braun ([id number]) on 08/19/2017 1 0:37:38 PM Specimen Anatomical [...] status documented in this encounter Care Teams Fixed Route Bus Operator Relationship Specialty Start Date End Date Lovely Vicente MD PCP - General 04/16/[address] [place] [address] documented as of this encounter
--- OUTSIDE RECORDS SUMMARY | 2022-05-15 08:23 | XMS_ITS | Encounter Summary ---
:1945 Author Organization [facility] [place] [address] Care Team Providers Name Role Phone Lovely Vicente MD Primary Care Provider Reason for Visit Reason Onset Date Comments [facility] Calls 08/30/2017 Encounter Details Date Type Department Care Team Description 08/30/2017 Telephone Vascular Surgery at [facility] Cora Reid RN [facility]NA Calls [facility] [place] [address] Social History Tobacco Use Types Packs/Day [...] Caller: Alfonso at [facility] [phone] Reason for call: Changing his wound vac [...] Dolan MD [facility] [address] [place], [place] [address] (Wo rk) 05/28/2022 Laboratory Appointment Lab 05/28/2022 Office Visit Cardiology Zulma Dolan MD [facility] [place] [address] Liz Poole PA [facility] [place] [address] 06/10/2022 Office Visit Dermatology Laura Scherer MD [facility] DR [address] [place], [place] [address] (Wo rk) documented as of this encounter Visit Diagnoses Not on filedocumented in this encounter Care Teams Professor Of Anthropology Relationship Specialty Start Date End Date Lovely Vicente MD PCP - General 04/16/[address] [place] [address] documented as of this encounter
--- OUTSIDE RECORDS SUMMARY | 2022-05-15 08:23 | XMS_ITS | Encounter Summary ---
:1945 Author Organization [facility] [place] [address] Care Team Providers Name Role Phone Lovely Vicente MD Primary Care Provider Encounter Details Date Type Department Care Team Description 09/06/2017 Orders Only Vascular Surgery at [facility] Ninfa Clark, [facility] [place] [address] Social History Tobacco Use Types Packs/Day [...] Dolan MD [facility] er [address] [place], [place] [address] (Wo rk) 05/28/2022 Laboratory Appointment Lab 05/28/2022 Office Visit Cardiology Zulma Dolan [place] [id number] Liz Poole PA [facility] [place] [address] 06/10/2022 Office Visit Dermatology Laura Scherer MD [facility] [address] [place], [place] [address] (Wo rk) documented as of this encounter Visit Diagnoses Not on filedocumented in this encounter Care Teams Desulphuring Operator Relationship Specialty Start Date End Date Lovely Vicente MD PCP - General 04/16/[address] [place] [address] documented as of this encounter
--- OUTSIDE RECORDS SUMMARY | 2022-05-15 08:23 | XMS_ITS | Encounter Summary ---
:1945 Author Organization [facility] [place] [address] Care Team Providers Name Role Phone Lovely Vicente MD Primary Care Provider Encounter Details Date Type Department Care Team Description 08/25/2017 Telephone Pain Management at [facility] [place]eno, [place] [address] Social History Tobacco Use Types Packs/Day [...] Management Center Preauthorization Request Patient: Don Fatima [id number] Fax received from [employer] denying prior authorization for Lidocaine Patches prescribed by Barbra Soares APRN. RX insurance plan: [employer] insurance telephone: [phone] Patient Diagnosis: right foot pain secondary to PVD and ischemia ? Previous medications attempted: Tylenol, Tramadol, Dilaudid Authorization/Reference number: [id number] _x_ denied, provider and patient informed _x_ appeal initiated by provider, patient informed Angeles Rodrigez, RN documented in this encounter Plan of Treatment Upcoming Encounters Date Type Specialty Care Team Description 05/28/2022 Appointment Cardiology Zulma Dolan MD [facility] [place], [place] [address] (Wo rk) 05/28/2022 Laboratory Appointment Lab 05/28/2022 Office Visit Cardiology Zulma Dolan MD [facility] [place] [address] Liz Poole PA [facility] [place] [address] 06/10/2022 Office Visit Dermatology Laura Scherer MD [facility] [address] [place], [place] [address] (Wo rk) documented as of this encounter Visit Diagnoses Not on filedocumented in this encounter Care Teams Tip Stretcher Relationship Specialty Start Date End Date Lovely Vicente MD PCP - General 04/16/[address] [place] [address] documented as of this encounter
--- OUTSIDE RECORDS SUMMARY | 2022-05-15 08:23 | XMS_ITS | Encounter Summary ---
:1945 Author Organization [facility] [place] [address] Care Team Providers Name Role Phone Lovely Vicente MD Primary Care Provider Encounter Details Date Type Department Care Team Description 08/26/2017 Hospital Encounter Vascular Lab at [facility], Athero embolism of foot, right; [place], [place] Delayed surgi nusrat wound healing, [place] [phone] Social History Tobacco Use Types Packs/Day Years [...] Dolan MD [facility] [address] [place], [place] [address] (Wo rk) 05/28/2022 Laboratory Appointment Lab 05/28/2022 Office Visit Cardiology Zulma Dolan [place] [facility] [place] [address] Liz Poole PA [facility] [place] [address] 06/10/2022 Office Visit Dermatology Laura Scherer MD [facility] [address] [place], [place] [address] [...] Department: Vascular Surgery Lab VASCUBASE Report Patient: [id number] (DON HOANG) CPT: 78315 ICD10: T81.89XA;I75.021 Referring Physician: ELVER BLOOM ?? [...] encounter documented in this encounter Care Teams [employer] Relationship Specialty Start Date End Date Lovely Vicente MD PCP - General 04/16/[address] [place] [address] documented as of this encounter
--- OUTSIDE RECORDS SUMMARY | 2022-05-15 08:23 | XMS_ITS | Encounter Summary ---
:1945 Author Organization [facility] [place] [address] Care Team Providers Name Role Phone Lovely Vicente MD Primary Care Provider Reason for Visit Reason Comments Follow-up I'm having trouble with the VAC Encounter Details Date Type Department Care Team Description 08/26/2017 Office Visit Vascular Surgery at [facility], STEPHANIE Mercado Atheroembolism of foot, right; [facility] [address] Delayed surgical wound healing, initial encounter; [facility] VASCULAR SURG YEHUDA Acute on chronic systolic congestive hea rt failure ; [place], [place] [address] [phone] Social History Tobacco Use Types Packs/Day Years [...] [facility]. However, since discharge from [facility] he has had some difficulty with continuation [...] at [facility] MAIN OR Social Hx: Social [...] Cardiology Zulma Dolan MD [facility] [place], [place] [address] (Wo rk) 05/28/2022 Laboratory Appointment Lab 05/28/2022 Office Visit Cardiology Zulma Dolan MD [facility] [place] [address] Liz Poole PA [facility] [place] [address] 06/10/2022 Office Visit Dermatology Laura Scherer MD [facility] [address] [place], [place] [address] (Wo rk) documented as [...] Department: Vascular Surgery Lab VASCUBASE Report Patient: [id number] (GREGORY FATIMA) CPT: 69014 ICD10: T81.89XA;I75.021 Referring Physician: ARIK CLEMENT ?? [...] Signature Glucose Lvl 98 65 - 199 [facility] mg/dL [facility] Comment: Diabetes: >=200 mg/dL plus symp toms BUN 20 10 - 20 mg/dL [facility] Creatinine 1.17 0.80 - 1.50 mg/dL [facility] [...] [facility] Estimated GFR >60 >=60 [facility] Comment: The reported eGFR should be multiplied b y 1.2 for patients. The MDRD is not an appropriate measure o f renal function for patients with body mass extremes or in patients with acute kidney failure. http://[employer]/DHnkdep http://[employer]/DHMCnkf Specimen Anatomical Collection Method Collection Time Receive d Time (Source) Location / / Volume Laterality Blood specimen 08/26/2017 2:00 PM 018 2:15 (specimen) EST PM EST Resulting Agency Comment Spec In Lab Danette Maxwell OPTICAL SYSTEMS ENGINEER CHEMISTRY ORDERABLES Performing Organization Address City/[facility]/ZIP Code Phon e Number [address] (ABNORMAL) pro-Brain Natriuretic Peptide (08/26/2017 2:00 PM EST) P athologist Signature ProBNP 2,373 (H) <=125 [facility] pg/mL [facility] Specimen Anatomical Collection Method Collection Time Receive d Time (Source) Location / / Volume Laterality Blood specimen 08/26/2017 2:00 PM 018 2:15 (specimen) EST PM EST Resulting Agency Comment Spec In Lab Danette A Watkins STACIE CHEMISTRY ORDERABLES Performing Organization Address City/[facility] [place] [address] documented in this encounter Visit Diagnoses Diagnosis Atheroembolism of foot, right Delayed surgical wound healing, initial encounter Acute on chronic systolic congestive hea rt failure Acute on chronic systolic heart failure Ischemic cardiomyopathy Other specified forms of chronic ischemi c heart disease documented in this encounter Care Teams Licensed Mortgage Loan Officer Relationship Specialty Start Date End Date Lovely Vicente MD PCP - General 04/16/[address] [place] [address] documented as of this encounter
--- OUTSIDE RECORDS SUMMARY | 2022-05-15 08:23 | XMS_ITS | Encounter Summary ---
:1945 Author Organization [facility] [place] [address] Care Team Providers Name Role Phone Lovely Vicente MD Primary Care Provider Encounter Details Date Type Department Care Team Description 08/30/2017 [facility] ischemia [facility] [address] [place] VASCULAR SURGERY [address] [place] [address] [phone] Social History Tobacco Use Types Packs/Day Years [...] MD - 08/30/2017 2:00 PM EST [facility] staff: Patient returns. He is doing well [...] Dolan MD [facility] [address] [place], [place] [address] (Wo rk) 05/28/2022 Laboratory Appointment Lab 05/28/2022 Office Visit Cardiology Zulma Dolan MD [facility] [place] [address] Liz Poole PA [facility] [place] [address] 06/10/2022 Office Visit Dermatology Laura Scherer MD [facility] [address] [place], [place] [address] (Wo rk) documented as of this encounter Visit Diagnoses Diagnosis Critical lower limb ischemia Unspecified circulatory system disorder documented in this encounter Care Teams Surfacer Relationship Specialty Start Date End Date Lovely Vicente MD PCP - General 04/16/[address] [place] [address] documented as of this encounter
--- OUTSIDE RECORDS SUMMARY | 2022-05-15 08:24 | XMS_ITS | Encounter Summary ---
:1945 [place] [address] Care Team Providers Name Role Phone Lovely Vicente MD Primary Care Provider Reason for Visit Auth/Cert Specialty Diagnoses / Procedures Referred By Contact Refer red To Contact Diagnoses Critical lower limb ischemia CELLULITIS RT FOOT Procedures EMERGENCY Referral ID Status Reason Start Date Expiration Date Visits Requ ested Visits Authorized [id number] 1 1 Encounter Details Date Type Department Care Team Description 08/06/2017 - Hospital Encounter 5 Yonathan Oneill lower limb ischemia; 08/16/2017 Su Flores MD Ischemic foot Hospital [facility] [address] [place] [id number] [phone] Social History Tobacco Use Types Packs/Day Years [...] 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 Patient [...] Dorsalis Pedis (Ankle) Artery ?132 ? 0.94 ??Cooper-Biphasic ? Posterior Tibial (Ankle) Artery ??154 ? 1.10 ??Cooper-Biphasic ? Fourth Toe ? 67 ?0.48 ?? [...] the foot. Discharge Conditions/Prognosis: Good Discharge to: [facility] Rehab Discharge Medications: Your [...] For any problems or questions please call [phone] ZELDA Smith, manhole builder Nurse Clinician For issues on weeknights after 5pm and weekends please call [phone] and ask for the Vascular Fellow health commissioner. General Instructions None Future Appointments and Orders Future Appointments Provider Department Dept Phone 08/26/2017 4:00 PM Aurelia Rivera PA Vascular Surgery [facility] [place] [phone] 09/07/2017 3:00 PM LAB, THREE L Lab 3L [facility] [phone] 09/07/2017 4:00 PM Luz Prescott MD Endocrinology at [place] [phone] 09/09/2017 8:00 AM Barbra Soares APRN Pain Management at [place] [phone] Please bring a list of your current [...] For any problems or questions please call [phone] ZELDA Smith, manhole builder Nurse Clinician For issues on weeknights after 5pm and weekends please call [phone] and ask for the Vascular Fellow health commissioner. documented in this encounter Medications at Time [...] Discharge Note Patient Destination: [facility] ([facility]) [address] [place] [address] Transportation: with (at bedside) Time of Discharge: by 12 noon Level of Care: swing Patient Aware: yes Family Notified: yes Md to call report to: Yissel Quintero REPAIR SUPERVISOR already called RN to call report to: [phone] Shirin Wolf Office of Care Management Pager [phone] Shirin Wolf RN - 08/16/2017 10:50 AM EST [facility] has offered pt swing bed. Pt and accept bed. will transport via car. REPAIR SUPERVISOR Yissel Quintero aware; d/c paperwork will be completed by 12 noon. [facility] requests pt arrival by 1400 today; REPAIR SUPERVISOR, RN, and family aware. REPAIR SUPERVISOR called [facility] and was told that they prefer pt to arrive with wound vac dressing applied but clamped. REPAIR SUPERVISOR applied new wound vac dressing. RN has [facility] number to call report. PASSR completed; REPAIR SUPERVISOR paged to request provider signature in highlighted space. Indigo from [facility] notified via email that home wound vac now cancelled; [facility] has picked up from room and order cancelled. Packet started and provided to community support specialist. Medicare important message explained to patient, patient signed. Copy provided to patient and signature page to OCM for inclusion in pt EMR. Radha Georges - 08/16/2017 10:34 AM EST Office of Care Management/Green End Worker Patient Name: Gregory Hoang : 1945 Patient has been offered a swing bed at [facility]. The patient will be transported by private transportation. No MD to MD report necessary Please call Nursing Report to [phone], ask for dean of chapel. Info to accompany patient: Narcotic Prescriptions Copies of Medication Administration Records and IV sheets for past 10 days. Plan: Green End Worker will be available to the patient and Wrapper Opener-RN and/or Nuclear Equipment Design Engineer for further assistance. Patient will be discharged to: [place] [phone] Radha Powers, Green End Worker Mira Black, VAMSI - 08/15/2017 10:05 PM EST [address] Flores to ask if he wanted to hold metoprolol dose. BP 95/58. OK to hold this dose Courtney Brito - 08/15/2017 3:26 PM EST Office of Care Management(OCM)/Green End Worker(RS)/ D/C Planning re : Patient is medically ready for d/c today. RS has been in contact with [facility] to see if they could offer a bed. [facility] is still reviewing the case and need their MD to review chart prior to accepting or declining. OCM team needs to check in with [facility] tomorrow to check on status. 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 Await recommendations from PT. Covering pager #[phone]. 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 Gravity Prospecting Observer Helper Kaitlin Saha, RN Pager #[phone] Payam Rosales - 08/13/2017 2:37 PM EST Sheet Metal Superintendent Encounter Note Patient Name: Gregory Hoang : [id number] MR#: [id number] Admit Date: 08/06/2017 1:41 PM Hospital Day 7 days Narrative: Visited to introduce and assess acceptance of Sheet Metal Superintendent services. Pt was awake, alert, oriented and in chair and family was there. Assessment:Patient coping positively with stresses of illness/hospitalization at this time. Pt says that he is hoping to get better and his family was there. Pt says that he has family care and supportand taking one day at time. Intervention and Outcome: Provided emotional support and encouraging presence. 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 PHONE: [phone] FAX: [phone]. And Home NPWT (Negative Pressure Wound Therapy) aka wound vac device made available to pt. Serial # confirmed. Reviewed [facility] Proof of Delivery/Assignment of Benefits Statement(POD/AOB) Form w patient or authorized agent signing on behalf of patient. Copy of POD/AOB provided to pt and other copy faxed to [employer] @ fax# [phone] Expected date of discharge: 08/12/2017. 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 Heparin gtt continues to run. [...] of : 1945 AGE 72 y.o. 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 Unsuccessful draw attempt, another filing machine operator will come 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 Vascular resident health commissioner and will forward result to the team prior to rounds. 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 Patient [...] left blue toes with CTA showing R PAN SHOVER pseudoaneurysm (now thrombosed) and occluded ATs bilaterally. [...] 2.5x80 5. Completion RLE angiogram 6. L PAN SHOVER angiogram 7. 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 - L PAN SHOVER angriogram demonstrated: High femoral bifurcation over the proximal half of the femoral head. L PAN SHOVER access in the distal L PAN SHOVER. - Closure device: Mynx Technical Procedure: The [...] for a 45cm 5F Destination. V18 and [place] and QuickCross catheters were used to [...] 5F. A stationed picture of the L PAN SHOVER was performed as the patient was noted to have a very high bifurcation. Access appeared in the distal R PAN SHOVER. Closure and sheath removal was performed with [...] EST 1440 report called to 5 [facility] nurse Tessa AGUSTIN documented in this encounter [...] with pt and pt's spouse. Discharge to [facility]. Goal: Individualization & Mutuality [...] sit/sit to supine -- Bed Mobility Goal, Grant Level independent -- Bed Mobility Goal, Date [...] days -- Transfer Training Goal, Activity Type gbr-xc-wgqkz/vkwrt-th-jpi -- Transfer Train Goal, Grant Level conditional independence -- Transfer Train Goal, [...] call cabello within reach, Hourly rounding by RN/SAFETY INTERN. Bed alarm / Chair alarm. Patient-specific fall [...] Smith MD - 08/15/2017 6:28 PM EST [facility] Operative Note Patient Name: Gregory Hoang : [id number] MR#: [id number] Case Date: 08/09/2017 Surgeon: Surgeon(s) and Role: [...] 2.5x80 5. Completion RLE angiogram 6. L PAN SHOVER angiogram 7. Mynx closure Precautions/Restrictions: fall, sternal [...] other (see comments) (or swing bed) Pager: [phone] BASSAM ELIAS, PT 08/14/2017 Inpatient Physical Therapy [...] to Achieve by discharge Gait Training Goal, Grant Level conditional independence;set up required Gait Training [...] these facilities over the weekend except for [facility]. CM spoke with [facility] CM Drea Sandhu, VAMSI who said that they do not anticipate any beds over the weekend. Reviewed with patient/ that they need to be aware that patient will need to take the first bed offered at the facilities that they make referrals to. Their choices are: 1- [facility] PHONE: [phone] FAX: [phone] 2- [facility] ([facility]) [address] [place] [address] 3- [facility])([facility]) [address] [place] [address] I have discussed Medicare/Private Insurance [...] RS/CM on Wednesday to follow-up. Covering pager #[phone] for today. Plan of Care - Henrique [...] with additional findings of pseudoaneurysm on R PAN SHOVER and bilateral anterior tibial artery occlusions. Was [...] an outpatient once discharged. Have patient call [phone] to set up an appointment. Follow-up: Dermatology will sign-off for now. Please do not hesitate to contact us if you have any questions orconcerns. Impression and Recommendations discussed with primary team on 08/13/2017. Karo Henderson MD Resident in Dermatology Section of Dermatology, Department of Surgery [facility] Pager [phone] Patient seen and evaluated with staff Dermatology Nurse: Halima Cordero MD Section of Dermatology [place] [...] 2.5x80 5. Completion RLE angiogram 6. L PAN SHOVER angiogram 7. Mynx closure Active Non-Hospital Problems [...] home with home health ([facility] PT&OT) Pager: [phone] YASIR TELLO OT 08/12/2017 Occupational Therapy Rehabilitation [...] 2.5x80 5. Completion RLE angiogram 6. L PAN SHOVER angiogram 7. Mynx closure Past Medical History: [...] with 24/7 assistance and maximal services) Pager: [phone] NICHOLAS MORA, PT 08/12/2017 Physical Therapy Rehabilitation [...] sit/sit to supine -- Bed Mobility Goal, Grant Level independent -- Bed Mobility Goal, Outcome Achieved -- goal ongoing Goal: Gait Training Goal Stand Alone Therapy Goal Outcome: Ongoing (Interventions Implemented as Appropriate) 08/11/17 1310 08/12/17 1510 Gait Training Goal Gait Training Goal, Date Established 08/11/17 -- Gait Training Goal, Time to Achieve 5 - 7 days -- Gait Training Goal, Grant Level conditional independence -- Gait Training Goal, [...] days -- Transfer Training Goal, Activity Type efc-la-qxxol/xfqdf-dv-fjl -- Transfer Train Goal, Grant Level conditional independence -- Transfer Training Goal, [...] Smith MD - 08/11/2017 2:52 PM EST [facility] Operative Note Patient Name: Gregory Hoang : [id number] MR#: [id number] Case Date: 08/11/2017 Surgeon: Surgeon(s) and Role: [...] 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 Completion RLE angiogram 6. L PAN SHOVER angiogram 7. Mynx closure He is very [...] to sit/sit to supine Bed Mobility Goal, Grant Level independent Goal: Gait Training Goal Stand Alone Therapy Goal Outcome: Ongoing (Interventions Implemented as Appropriate) 08/11/17 1310 Gait Training Goal Gait Training Goal, Date Established 08/11/17 Gait Training Goal, Time to Achieve 5 - 7 days Gait Training Goal, Grant Level conditional independence Gait Training Goal, Assist [...] 7 days Transfer Training Goal, Activity Type cah-gy-qwroc/qrkqg-bc-wuc Transfer Train Goal, Grant Level conditional independence Plan of [facility] Annetta Sandoval RN - 08/11/2017 7:21 [...] call cabello within reach, Hourly rounding by RN/SAFETY INTERN. Bed alarm / Chair alarm. ? Patient-specific [...] 30 Days: [facility] 07/20/2017 Anticipated Length Of Stay (If known): Expected Length of Hospitalization: 5-7 days2-3 days Current Decision-Making Capacity: Alert and oriented x 4 Advance Care Planning: on file Kisha Hoang [facility] [phone] Current Coping/Education/Information Needs: pt and spouse state [...] Health/Prescription Coverage: Primary Insurance: MEDICARE Secondary Insurance: [employer] [facility] Prescription Coverage: See above Preferred Pharmacy: [facility] Other: N/A Primary Care Provider: Lovely Vicente MD [phone] Patient/Caregiver Goals of Treatment: Patient plans to [...] of care planning. Kaitlin Saha RN Pager: [phone] Plan of Care - Melba Jaramillo RN [...] Overview Goal: Plan of Care Review 08/08/17 1994 Coping/Psychosocial Plan Of Care Reviewed With patient [...] call cabello within reach, Hourly rounding by RN/SAFETY INTERN. Bed alarm / Chair alarm. Patient-specific fall [...] at bedside and MD TEAM Carrying pager [phone] contacted (via Radio page) and notified of [...] Cardiology Zulma Dolan MD [facility] [place], [place] [address] (Wo rk) 05/28/2022 Laboratory Appointment Lab 05/28/2022 Office Visit Cardiology Zulma Dolan MD [facility] [place] [address] Liz Poole PA [facility] [place] [address] 06/10/2022 Office Visit Dermatology Laura Scherer MD [facility] TEJA [facility] [place], [place] [address] (Wo rk) documented as [...] Signature POC Glucose 160 65 - 199 [facility] mg/dL [facility] LABORATORY [...] Organization Address City/State/ZIP [place] [address] (ABNORMAL) Differential, Automated (08/16/2017 5:08 AM EST) [facility] Method Time Signature Neutrophils % 73.9 % [facility] LABORATORY Neutr Abs (ANC) 5.37 1.70 - [facility] 6.10 [facility] x10(3)/[facility] LABORATORY Lymphocytes % 10.1 % [facility] LABORATORY Lymphocytes Abs 0.7 (L) 0.9 - 3.2 [facility] x10(3)/[facility] LABORATORY Monocytes % 10.1 % [facility] LABORATORY Monocyte Abs 0.7 0.3 - 0.9 [facility] x10(3)/[facility] LABORATORY Eosinophils % 5.1 % [facility] LABORATORY Eosinophils Abs 0.4 0.0 - 0.4 [facility] x10(3)/[facility] LABORATORY Basophils % 0.4 % [facility] LABORATORY Basophils Abs 0.0 0.0 - 0.1 [facility] x10(3)/[facility] LABORATORY Immature Gran [...] Melisa Gran Abs 0.03 0.00 - 0.04 x10(3)/[facility] Y [facility] LABORATORY Specimen Anatomical Collection Method Collection Time Receive d Time (Source) Location / / Volume Laterality Blood specimen 08/16/2017 5:08 AM 018 5:20 (specimen) EST AM EST Resulting Agency Comment Spec In Lab Yonathan Smith MD HEMATOLOGY ORDERABLES Performing Organization Address City/State/[place] [address] (ABNORMAL) Hemogram (08/16/2017 5:08 AM EST) Analysis Performed At Patho logist Time Signature WBC 7.3 4.0 - 9.5 [facility] x10(3)/[facility] LABORATORY RBC 3.36 (L) 4.58 - [facility] 5.54 [facility] x10(6)/[facility] LABORATORY Hemoglobin 9.7 (L) 13.7 - [facility] 16.[facility] gm/dL [facility] LABORATORY Hematocrit 30.3 (L) 40.5 - [facility] 48.5 % [facility] LABORATORY MCV 90.2 82.9 - [facility] LABORATORY MCH 28.9 27.5 - [facility] 32.1 pg [facility] LABORATORY MCHC 32.0 32.0 - [facility] 35.7 gm/dL [facility] LABORATORY Platelets 282 145 - 357 [facility] x10(3)/[facility] LABORATORY RDWSD 53.9 (H) 36.0 - [facility] 45.0 [facility] LABORATORY RDWCV 16.5 (H) 11.4 - [facility] SU 13.8 % [facility] LABORATORY MPV 9.0 7.6 - 12.9 [facility] LABORATORY nRBC % Auto 0.0 % [facility] LABORATORY nRBC Abs Auto 0.000 0.000 - [facility] SU 0.000 [facility] x10(3)/[facility] LABORATORY Specimen Anatomical Collection Method Collection Time Receive d Time (Source) Location / / Volume Laterality Blood specimen 08/16/2017 5:08 AM 018 5:20 (specimen) EST AM EST Resulting Agency Comment Spec In Lab Yonathan Smith MD HEMATOLOGY ORDERABLES Performing Organization Address City/State/Z[place] [address] (ABNORMAL) Basic Metabolic Panel (non-fasting) (08/16/2017 5:08 AM EST) P athologist Signature Glucose Lvl 141 65 - 199 [facility] mg/dL [facility] LABORATORY [...] or in patients with acute kidney failure. http://Real Time Translation/DHnkdep http://Real Time Translation/DHMCnkf Specimen Anatomical Collection Method Collection Time Receive d Time (Source) Location / / Volume Laterality Blood specimen 08/16/2017 5:08 AM 018 5:20 (specimen) EST AM EST Resulting Agency Comment Spec In Lab Yonathan Smith MD CHEMISTRY ORDERABLES Performing Organization Address City/State/[place] [address] (ABNORMAL) Prothrombin Time (08/16/2017 [...] Address City/State/ZIP Code Phon e Number [address] POCT Glucose (08/16/2017 4:09 AM EST) athologist Signature POC Glucose 147 65 - 199 [facility] mg/dL [facility] LABORATORY Comment: [...] Organization Address City/State/[place] [address] POCT Glucose (08/15/2017 11:56 PM EST) athologist Signature POC Glucose 176 65 - 199 [facility] SU mg/dL [facility] LABORATORY Comment: [...] Organization Address City/State/[place] [address] POCT Glucose (08/15/2017 8:05 PM EST) athologist Signature POC Glucose 136 65 - 199 [facility] mg/dL [facility] LABORATORY Comment: [...] Organization Address City/State/[place] [address] (ABNORMAL) POCT Glucose (08/15/2017 4:50 PM EST) athologist Signature POC Glucose 232 (H) 65 - 199 [facility] SU mg/dL [facility] LABORATORY Comment: [...] Organization Address City/State/[place] [address] POCT Glucose (08/15/2017 12:04 PM EST) athologist Signature POC Glucose 135 65 - 199 [facility] SU mg/dL [facility] LABORATORY Comment: [...] Organization Address City/State/[place] [address] POCT Glucose (08/15/2017 7:36 AM EST) P athologist Signature POC Glucose 124 65 - 199 [facility] mg/dL [facility] LABORATORY [...] Organization Address City/State/ZIP [place] [address] (ABNORMAL) Differential, Automated (08/15/2017 6:22 AM EST) Patholo gist Method Time Signature Neutrophils % 76.1 % [facility] LABORATORY Neutr Abs (ANC) 6.62 (H) 1.70 - [facility] 6.10 [facility] x10(3)/[facility] L LABORATORY Lymphocytes % 9.3 % [facility] LABORATORY Lymphocytes Abs 0.8 (L) 0.9 - 3.2 [facility] x10(3)/[facility] LABORATORY Monocytes % 9.4 % [facility] LABORATORY Monocyte Abs 0.8 0.3 - 0.9 [facility] x10(3)/[facility] LABORATORY Eosinophils % 4.0 % [facility] LABORATORY Eosinophils Abs 0.4 0.0 - 0.4 [facility] x10(3)/[facility] LABORATORY Basophils % 0.6 % [facility] LABORATORY Basophils Abs 0.0 0.0 - 0.1 [facility] x10(3)/[facility] LABORATORY Immature Gran % 0.60 % NORTH [...] Organization Address City/State/Z[place] [address] (ABNORMAL) Hemogram (08/15/2017 6:22 AM EST) Analysis Performed At Patho logist Time Signature WBC 8.7 4.0 - 9.5 [facility] x10(3)/[facility] LABORATORY RBC 3.21 (L) 4.58 - [facility] 5.[facility] x10(6)/[facility] LABORATORY Hemoglobin 9.1 (L) 13.7 - [facility] 16.5 gm/dL [facility] LABORATORY Hematocrit 29.0 (L) 40.5 - [facility] 48.5 % [facility] LABORATORY MCV 90.3 82.9 - [facility] LABORATORY MCH 28.3 27.5 - [facility] 32.1 pg [facility] LABORATORY MCHC 31.4 (L) 32.0 - [facility] 35.[facility] gm/dL [facility] LABORATORY Platelets 254 145 - 357 [facility] x10(3)/[facility] LABORATORY RDWSD 53.9 (H) 36.0 - [facility] SU 45.0 [facility] LABORATORY RDWCV 16.3 (H) 11.4 - [facility] SU 13.8 % [facility] LABORATORY MPV 8.8 7.6 - 12.9 [facility] LABORATORY nRBC % Auto 0.0 % [facility] LABORATORY nRBC Abs Auto 0.000 0.000 - [facility] SU 0.000 [facility] x10(3)/[facility] LABORATORY Specimen Anatomical Collection Method Collection Time Receive d Time (Source) Location / / Volume Laterality Blood specimen 08/15/2017 6:22 AM 018 6:33 (specimen) EST AM EST Resulting Agency Comment Spec In Lab Yonathan Smith MD HEMATOLOGY ORDERABLES Performing Organization Address City/[facility]/ZIP [place] [address] (ABNORMAL) Basic Metabolic Panel (non-fasting) (08/15/2017 6:22 AM EST) athologist Signature Glucose Lvl 118 65 - 199 [facility] mg/dL [facility] LABORATORY [...] [facility] LABORATORY Estimated GFR >60 >=60 [facility] LABORATORY Comment: The reported eGFR should be multiplied b y 1.2 for patients. The MDRD is not an appropriate measure o f renal function for patients with body mass extremes or in patients with acute kidney failure. [email or web address] [email or web address] Specimen Anatomical Collection Method Collection Time Receive d Time (Source) Location / / Volume Laterality Blood specimen 08/15/2017 6:22 AM 018 6:33 (specimen) EST AM EST Resulting Agency Comment Spec In Lab Yonathan Smith MD CHEMISTRY ORDERABLES Performing Organization Address City/[facility]/[place] [address] (ABNORMAL) Prothrombin Time (08/15/2017 [...] Organization Address City/State/[place] [address] POCT Glucose (08/15/2017 4:33 AM EST) athologist Signature POC Glucose 164 65 - 199 [facility]dL [facility] LABORATORY Comment: [...] Organization Address City/State/[place] [address] POCT Glucose (08/15/2017 12:12 AM EST) athologist Signature POC Glucose 89 65 - 199 [facility]/dL [facility] LABORATORY Comment: [...] Organization Address City/State/[place] [address] (ABNORMAL) POCT Glucose (08/14/2017 8:07 PM EST) athologist Signature POC Glucose 204 (H) 65 - 199 [place] [facility] mg/dL [facility] LABORATORY Comment: [...] Organization Address City/State/[place] [address] POCT Glucose (08/14/2017 5:11 PM EST) athologist Signature POC Glucose 174 65 - 199 [place] [facility] mg/dL [facility] LABORATORY Comment: [...] Organization Address City/State/[place] [address] POCT Glucose (08/14/2017 12:10 PM EST) athologist Signature POC Glucose 141 65 - 199 [place] [facility] mg/dL [facility] LABORATORY Comment: [...] Address City/State/ZIP Code Phon e Number [address] POCT Glucose (08/14/2017 8:07 AM EST) P athologist Signature POC Glucose 158 65 - 199 [facility] mg/dL [facility] LABORATORY [...] Organization Address City/State/[place] [address] (ABNORMAL) Differential, Automated (08/14/2017 4:52 AM EST) Patholo gist Method Time Signature Neutrophils % 78.6 % [facility] LABORATORY Neutr Abs (ANC) 7.70 (H) 1.70 - [facility] 6.10 [facility] x10(3)/[facility] L LABORATORY Lymphocytes % 7.8 % [facility] LABORATORY Lymphocytes Abs 0.8 (L) 0.9 - 3.2 [facility] x10(3)/[facility] LABORATORY Monocytes % 8.8 % [facility] LABORATORY Monocyte Abs 0.9 0.3 - 0.9 [facility] x10(3)/[facility] LABORATORY Eosinophils % 4.0 % [facility] LABORATORY Eosinophils Abs 0.4 0.0 - 0.4 [facility] x10(3)/[facility] LABORATORY Basophils % 0.5 % [facility] LABORATORY Basophils Abs 0.0 0.0 - 0.1 [facility] x10(3)/[facility] LABORATORY Immature Gran % 0.30 % [facility] [...] x10(3)/[facility] LABORATORY Specimen Anatomical Collection Method Collection Time Receive d Time (Source) Location / / Volume Laterality Blood specimen 08/14/2017 4:52 AM 018 5:08 (specimen) EST AM EST Resulting Agency Comment Spec In Lab Yonathan Smith MD HEMATOLOGY ORDERABLES Performing Organization Address City/State/ZIP [place] [address] (ABNORMAL) Hemogram (08/14/2017 4:52 AM EST) Analysis Performed At Patho logist Time Signature WBC 9.8 (H) 4.0 - 9.5 [facility] x10(3)/[facility] LABORATORY RBC 3.32 (L) 4.58 - [facility] 5.54 [facility] x10(6)/[facility] LABORATORY Hemoglobin 9.5 (L) 13.7 - [facility]dL [facility] LABORATORY Hematocrit 30.3 (L) 40.5 - [facility] SU 48.5 % [facility] LABORATORY MCV 91.3 82.9 - [facility] SU 93.1 [facility] LABORATORY MCH 28.6 27.5 - [place] [facility] 32.1 pg [facility] LABORATORY MCHC 31.4 (L) 32.0 - [facility] SU 35.7 gm/dL [facility] LABORATORY Platelets 263 145 - 357 [facility] x[facility](3[facility] LABORATORY RDWSD 54.8 (H) 36.0 - [facility] SU 45.0 [facility] RDWCV 16.5 (H) 11.4 - [facility] SU 13.8 % [facility] LABORATORY MPV 9.1 7.6 - 12.9 [facility] LABORATORY nRBC % Auto 0.0 % [facility] LABORATORY nRBC Abs Auto 0.000 0.000 - [facility] 0.000 [facility] x10(3)/[facility] LABORATORY Specimen Anatomical Collection Method Collection Time Receive d Time (Source) Location / / Volume Laterality Blood specimen 08/14/2017 4:52 AM 018 5:08 (specimen) EST AM EST Resulting Agency Comment Spec In Lab Yonathan Smith MD HEMATOLOGY ORDERABLES Performing Organization Address City/[facility]/ZIP [place] [address] (ABNORMAL) Prothrombin Time (08/14/2017 [...] Organization Address City/State/Z[place] [address] (ABNORMAL) Basic Metabolic Panel (non-fasting) (08/14/2017 4:52 AM EST) athologist Signature Glucose Lvl 135 65 - 199 [facility] mg/dL [facility] LABORATORY [...] or in patients with acute kidney failure. [email or web address] [email or web address]/DHMCnkf Specimen Anatomical Collection Method Collection Time Receive d Time (Source) Location / / Volume Laterality Blood specimen 08/14/2017 4:52 AM 018 5:08 (specimen) EST AM EST Resulting Agency Comment Spec In Lab Yonathan Smith MD CHEMISTRY ORDERABLES Performing Organization Address City/State/ZIP [place] [address] POCT Glucose (08/14/2017 3:56 AM EST) P athologist Signature POC Glucose 135 65 - 199 [facility] mg/dL [facility] LABORATORY [...] Address City/State/ZIP [place] [address] POCT Glucose (08/13/2017 11:13 PM EST) athologist Signature POC Glucose 118 65 - 199 [place] [facility] mg/dL [facility] LABORATORY Comment: [...] - [place]/ZIP [place] [address] (ABNORMAL) POCT Glucose (08/13/2017 8:08 PM EST) athologist Signature POC Glucose 204 (H) 65 - 199 [place] [facility] mg/dL [facility] LABORATORY Comment: [...] [place]/ZIP Code Ph[place] [address] POCT Glucose (08/13/2017 4:02 PM EST) athologist Signature POC Glucose 145 65 - 199 [place] [facility] mg/dL [facility] LABORATORY Comment: [...] Organization Address City/State/[place] [address] POCT Glucose (08/13/2017 11:31 AM EST) P athologist Signature POC Glucose 179 65 - 199 [facility]/dL [facility] LABORATORY Comment: [...] [facility] [place] [address] (ABNORMAL) POCT Glucose (08/13/2017 10:16 AM EST) athologist Signature POC Glucose 211 (H) 65 - 199 [facility]/dL [facility] LABORATORY Comment: [...] [facility] [place]/ZIP Code Phon e Number [address] JULIAN, legs, multiple levels (08/13/2017 7:42 AM EST) Component Value Ref Test Analysis Performed At Patholo gist Range Method Time Signature VB Text Department: Vascular Surgery Lab VASCUBASE Report Patient: [id number] (GREGORY HOANG) CPT: 47381 ICD10: I99.8 Referring Physician: YONATHAN SMITH ?? Indications: s/p R 1,2,3 toe amps with red left foot, need n ew baseline Diabetes mellitus: yes ICD10 Diagnosis Code: I99.8 Findings: Right ?Pressure (mm Hg) ?? JULIAN ??Waveform ?TBI ?? Brachial Artery ?138 ? Dorsalis Pedis (Ankle) Arter y ?132 ? 0.94 ??Cooper- Biphasic ? Posterior Tibial (Ankle) Art anila ??154 ? 1.10 ??Cooper-Biphasic ? Fourth Toe ? 67 ? 0.48 [...] 156 65 - 199 [place] [facility] mg/dL [facility] LABORATORY [...] Organization Address City/State/[place] [address] (ABNORMAL) Differential, Automated (08/13/2017 5:33 AM EST) [facility] Method Time Signature Neutrophils % 77.8 % [facility] LABORATORY Neutr Abs (ANC) 7.83 (H) 1.70 - [facility] 6.10 [facility] x10(3)/[facility] L LABORATORY Lymphocytes % 8.4 % [facility] LABORATORY Lymphocytes Abs 0.8 (L) 0.9 - 3.2 [facility] x10(3)/[facility] LABORATORY Monocytes % 8.3 % [facility] LABORATORY Monocyte Abs 0.8 0.3 - 0.9 [facility] x10(3)/[facility] LABORATORY Eosinophils % 4.6 % [facility] LABORATORY Eosinophils Abs 0.5 (H) 0.0 - 0.4 [facility] x10(3)/[facility] LABORATORY Basophils % 0.5 % [facility] LABORATORY Basophils Abs 0.0 0.0 - 0.1 [facility] x10(3)/[facility] LABORATORY Immature Gran % 0.40 % [facility] [...] Address City/State/ZIP Code Phon e Number [address] (ABNORMAL) Hemogram (08/13/2017 5:33 AM EST) Analysis Performed At Patho logist Time Signature WBC 10.1 (H) 4.0 - 9.5 [facility] x10(3)/[facility] LABORATORY RBC 3.21 (L) 4.58 - [facility] 5.54 [facility] x10(6)/[facility] LABORATORY Hemoglobin 9.2 (L) 13.7 - [facility] 16.5 gm/dL [facility] LABORATORY Hematocrit 29.6 (L) 40.5 - [facility] 48.5 % [facility] LABORATORY MCV 92.2 82.9 - [facility] 93.1 [facility] LABORATORY MCH 28.7 27.5 - [facility] 32.1 pg [facility] LABORATORY MCHC 31.1 (L) 32.0 - [facility] 35.[facility] gm/dL [facility] LABORATORY Platelets 263 145 - 357 [facility] x10(3)/[facility] LABORATORY RDWSD 54.8 (H) 36.0 - [facility] 45.0 [facility] LABORATORY RDWCV 16.4 (H) 11.4 - [facility] 13.8 % [facility] LABORATORY MPV 9.2 7.6 - 12.9 [facility] LABORATORY nRBC % Auto 0.0 % [facility] LABORATORY nRBC Abs Auto 0.000 0.000 - [facility] 0.000 [facility] x10(3)/[facility] LABORATORY Specimen Anatomical Collection Method Collection Time Receive d Time (Source) Location / / Volume Laterality Blood specimen 08/13/2017 5:33 AM 018 6:04 (specimen) EST AM EST Resulting Agency Comment Spec In Lab Yonathan Smith MD HEMATOLOGY ORDERABLES Performing Organization Address City/State/[place] [address] (ABNORMAL) Prothrombin Time (08/13/2017 [...] City/State/ZIP Code Phon e Number [place] [id number] HOS[address] (ABNORMAL) Basic Metabolic Panel (non-fasting) (08/13/2017 5:33 AM EST) athologist Signature Glucose Lvl 126 65 - 199 [facility] mg/dL [facility] LABORATORY [...] [facility] LABORATORY Estimated GFR >60 >=60 [facility] LABORATORY Comment: The reported eGFR should be multiplied b y 1.2 for patients. The MDRD is not an appropriate measure o f renal function for patients with body mass extremes or in patients with acute kidney failure. http://[employer]/DHnkdep http://Real Time [employer]/DHMCnkf Specimen Anatomical Collection Method Collection Time Receive d Time (Source) Location / / Volume Laterality Blood specimen 08/13/2017 5:33 AM 018 6:04 (specimen) EST AM EST Resulting Agency Comment Spec In Lab Yonathan Smith MD CHEMISTRY ORDERABLES Performing Organization Address City/[facility]/ZIP [facility] Phon e Number [address] POCT Glucose (08/13/2017 4:29 AM EST) athologist Signature POC Glucose 111 65 - 199 [facility]/dL [facility] LABORATORY Comment: [...] [facility] [place]/ZIP Code Phon e Number [address] POCT Glucose (08/12/2017 11:28 PM EST) athologist Signature POC Glucose 164 65 - 199 [facility] LABORATORY Comment: [...] [facility] [place] [address] (ABNORMAL) POCT Glucose (08/12/2017 7:40 PM EST) athologist Signature POC Glucose 209 (H) 65 - 199 [facility] SU mg/dL [facility] LABORATORY Comment: [...] Address City/State/ZIP Code Phon e Number [address] POCT Glucose (08/12/2017 4:24 PM EST) athologist Signature POC Glucose 161 65 - 199 [facility]/dL [facility] LABORATORY Comment: [...] Organization Address City/State/[place] [address] POCT Glucose (08/12/2017 12:00 PM EST) athologist Signature POC Glucose 167 65 - 199 [place] [facility] mg/dL [facility] LABORATORY Comment: [...] Organization Address City/State/[place] [address] POCT Glucose (08/12/2017 7:25 AM EST) P athologist Signature POC Glucose 152 65 - 199 [facility] mg/dL [facility] LABORATORY [...] Organization Address City/State/ZIP [place] [address] (ABNORMAL) Differential, Automated (08/12/2017 6:29 AM EST) Patholo gist Method Time Signature Neutrophils % 78.7 % [facility] LABORATORY Neutr Abs (ANC) 7.94 (H) 1.70 - [facility] 6.10 [facility] x10(3)/[facility] LABORATORY Lymphocytes % 8.8 % [facility] LABORATORY Lymphocytes Abs 0.9 0.9 - 3.2 [facility] x10(3)/[facility] LABORATORY Monocytes % 7.8 % [facility] LABORATORY Monocyte Abs 0.8 0.3 - 0.9 [facility] x10(3)/[facility] LABORATORY Eosinophils % 3.9 % [facility] LABORATORY Eosinophils Abs 0.4 0.0 - 0.4 [facility] x10(3)/[facility] LABORATORY Basophils % 0.3 % [facility] LABORATORY Basophils Abs 0.0 0.0 - 0.1 [facility] x10(3)/[facility] LABORATORY Immature Gran % 0.50 % [facility] [...] Organization Address City/State/ZIP [place] [address] (ABNORMAL) Hemogram (08/12/2017 6:29 AM EST) Analysis Performed At Patho logist Time Signature WBC 10.1 (H) 4.0 - 9.5 [facility] x10(3)/[facility] LABORATORY RBC 3.02 (L) 4.58 - [facility] x10(6)/[facility] LABORATORY Hemoglobin 8.7 (L) 13.7 - [facility] 16.5 gm/dL [facility] LABORATORY Hematocrit 28.1 (L) 40.5 - [facility] 48.5 % [facility] LABORATORY MCV 93.0 82.9 - [facility] 93.1 [facility] LABORATORY MCH 28.8 27.5 - [facility] 32.1 pg [facility] LABORATORY MCHC 31.0 (L) 32.0 - [facility] 35.7 gm/dL [facility] LABORATORY Platelets 223 145 - 357 [facility] x10(3)/[facility] LABORATORY RDWSD 56.1 (H) 36.0 - [facility] 45.0 [facility] LABORATORY RDWCV 16.4 (H) 11.4 - [facility] SU 13.8 % [facility] LABORATORY MPV 9.0 7.6 - 12.9 [facility] LABORATORY nRBC % Auto 0.0 % [facility] LABORATORY nRBC Abs Auto 0.000 0.000 - [facility] SU 0.000 [facility] x10(3)/[facility] LABORATORY Specimen Anatomical Collection Method Collection Time Receive d Time (Source) Location / / Volume Laterality Blood specimen 08/12/2017 6:29 AM 018 6:38 (specimen) EST AM EST Resulting Agency Comment Spec In Lab Yonathan Smith MD HEMATOLOGY ORDERABLES Performing Organization Address City/[facility]/[place] [address] (ABNORMAL) Prothrombin Time (08/12/2017 [...] [facility] [place] [address] (ABNORMAL) Basic Metabolic Panel (non-fasting) (08/12/2017 6:29 AM EST) athologist Signature Glucose Lvl 151 65 - 199 [facility] mg/dL [facility] LABORATORY [...] [facility] LABORATORY Estimated GFR >60 >=60 [facility] LABORATORY Comment: The reported eGFR should be multiplied b y 1.2 for patients. The MDRD is not an appropriate measure o f renal function for patients with body mass extremes or in patients with acute kidney failure. http://Real Time Translation/DHnkdep http://Real Time Translation/DHMCnkf Specimen Anatomical Collection Method Collection Time Receive d Time (Source) Location / / Volume Laterality Blood specimen 08/12/2017 6:29 AM 018 6:38 (specimen) EST AM EST Resulting Agency Comment Spec In Lab Yonathan Smith MD CHEMISTRY ORDERABLES Performing Organization Address City/[facility]/ZIP Code Phon e Number [address] POCT Glucose (08/12/2017 4:08 AM EST) athologist Signature POC Glucose 181 65 - 199 [facility] mg/dL [facility] [...] [facility] [place] [address] (ABNORMAL) POCT Glucose (08/12/2017 12:17 AM EST) athologist Signature POC Glucose 221 (H) 65 - 199 [facility]/dL [facility] LABORATORY Comment: [...] Organization Address City/State/[place] [address] (ABNORMAL) POCT Glucose (08/11/2017 8:52 PM EST) athologist Signature POC Glucose 221 (H) 65 - 199 [place] [facility] mg/dL [facility] LABORATORY Comment: [...] [facility] [place] [address] POCT Glucose (08/11/2017 5:59 PM EST) athologist Signature POC Glucose 169 65 - 199 [place] [facility] mg/dL [facility] LABORATORY Comment: Supplemental ranges: <140 mg/dL before meals <180 mg/dL all other times of the day Specimen Anatomical Collection Method Collection Time Receive d Time (Source) Location / / Volume Laterality Blood specimen 08/11/2017 5:59 PM 018 5:59 (specimen) EST PM EST oYnathan Smith MD POINT OF CARE TEST ORDERABLE S Performing Organization Address City/State/[place] [address] (ABNORMAL) POCT Glucose (08/11/2017 4:08 PM EST) athologist Signature POC Glucose 240 (H) 65 - 199 [place] [facility] mg/dL [facility] LABORATORY Comment: [...] Address City/State/ZIP Code Phon e Number [address] POCT Glucose (08/11/2017 12:04 PM EST) athologist Signature POC Glucose 182 65 - 199 [facility] LABORATORY Comment: [...] [facility] [place] [address] POCT Glucose (08/11/2017 7:31 AM EST) athologist Signature POC Glucose 156 65 - 199 [facility]/dL [facility] LABORATORY Comment: [...] Address City/State/ZIP Code Phon e Number [address] (ABNORMAL) Differential, Automated (08/11/2017 6:16 AM EST) [facility] gist Method Time Signature Neutrophils % 83.7 % [facility] LABORATORY Neutr Abs (ANC) 10.76 (H) 1.70 - [facility] 6.10 [facility] x10(3)/[facility] L LABORATORY Lymphocytes % 6.0 % [facility] LABORATORY Lymphocytes Abs 0.8 (L) 0.9 - 3.2 [facility] x10(3)/[facility] LABORATORY Monocytes % 7.5 % [facility] LABORATORY Monocyte Abs 1.0 (H) 0.3 - 0.9 [facility] x10(3)/[facility] LABORATORY Eosinophils % 2.0 % [facility] LABORATORY Eosinophils Abs 0.3 0.0 - 0.4 [facility] x10(3)/[facility] LABORATORY Basophils % 0.3 % [facility] LABORATORY Basophils Abs 0.0 0.0 - 0.1 [facility] x10(3)/[facility] LABORATORY Immature Gran % 0.50 % [facility] [...] Organization Address City/State/Z[place] [address] (ABNORMAL) Hemogram (08/11/2017 6:16 AM EST) Analysis Performed At Patho logist Time Signature WBC 12.9 (H) 4.0 - 9.5 [facility] x10(3)/[facility] LABORATORY RBC 3.28 (L) 4.58 - [facility] 5.54 [facility] x10(6)/[facility] LABORATORY Hemoglobin 9.5 (L) 13.7 - [facility] 16.5 gm/dL [facility] LABORATORY Hematocrit 29.8 (L) 40.5 - [place] [facility] 48.5 % [facility] LABORATORY MCV 90.9 82.9 - [facility] 93.1 [facility] LABORATORY MCH 29.0 27.5 - [place] [facility] 32.1 [facility] LABORATORY MCHC 31.9 (L) 32.0 - [place] [facility] 35.7 gm/dL [facility] Platelets 236 145 - 357 [facility] x10(3)/[facility] LABORATORY RDWSD 53.5 (H) 36.0 - [place] [facility] 45.0 [facility] LABORATORY RDWCV 16.3 (H) 11.4 - [facility] 13.8 % [facility] LABORATORY MPV 8.8 7.6 - 12.9 [facility] nRBC % Auto 0.0 % [facility] nRBC Abs Auto 0.000 0.000 - [facility] 0.000 [facility] x10(3)/[facility] LABORATORY Specimen Anatomical Collection Method Collection Time Receive d Time (Source) Location / / Volume Laterality Blood specimen 08/11/2017 6:16 AM 018 6:24 (specimen) EST AM EST Resulting Agency Comment Spec In Lab Yonathan Smith MD HEMATOLOGY ORDERABLES Performing Organization Address City/State/ZIP Code Phon e Number [place] [id number] HOSPITAL LABORATORY Drive (ABNORMAL) Prothrombin Time (08/11/2017 [...] Organization Address City/State/ZIP [place] [address] Basic Metabolic Panel (non-fasting) (08/11/2017 6:16 AM EST) P athologist Signature Glucose Lvl 139 65 - 199 [facility] mg/dL [facility] LABORATORY [...] [facility] Estimated GFR >60 >=60 [facility] Comment: The reported eGFR should be multiplied b y 1.2 for patients. The MDRD is not an appropriate measure o f renal function for patients with body mass extremes or in patients with acute kidney failure. [email or web address]/DHnkdep [email or web address]/DHMCnkf Specimen Anatomical Collection Method Collection Time Receive d Time (Source) Location / / Volume Laterality Blood specimen 08/11/2017 6:16 AM 018 6:24 (specimen) EST AM EST Resulting Agency Comment Spec In Lab Yonathan Smith MD CHEMISTRY ORDERABLES Performing Organization Address City/State/ZIP Code Phon e Number [address] POCT Glucose (08/11/2017 4:07 AM EST) athologist Signature POC Glucose 162 65 - 199 [place] mg/dL [facility]OR[facility]ORY Comment: [...] - [place]/ZIP Code Phon e Number [place] [address] POCT Glucose (08/10/2017 11:59 PM EST) athologist Signature POC Glucose 166 65 - 199 [place] mg/dL [facility] Comment: [...] [place]/ZIP Code Phon e Number [place] DAV[place] [address] POCT Glucose (08/10/2017 8:12 PM EST) athologist Signature POC Glucose 156 65 - 199 [place] [facility] mg/dL [facility] Comment: [...] Organization Address City/State/[place] [address] (ABNORMAL) POCT Glucose (08/10/2017 4:42 PM EST) P athologist Signature POC Glucose 211 (H) 65 - 199 [facility] Comment: [...] Address City/State/ZIP Code Phon e Number [address] (ABNORMAL) Differential, Automated (08/10/2017 2:30 PM EST) Patholo gist Method Time Signature Neutrophils % 87.6 % [facility] LABORATORY Neutr Abs (ANC) 9.90 (H) 1.70 - [facility] 6.10 [facility] x10(3)/[facility] L LABORATORY Lymphocytes % 4.3 % [facility] LABOR[facility]ORY Lymphocytes Abs 0.5 (L) 0.9 - 3.2 [facility] x10(3)/[facility] LABORATORY Monocytes % 6.0 % [facility] LABOR[facility]ORY Monocyte Abs 0.7 0.3 - 0.9 [facility] x10(3)/[facility] LABORATORY Eosinophils % 1.1 % [facility] LABOR[facility]ORY Eosinophils Abs 0.1 0.0 - 0.4 [facility] x10(3)/[facility] LABORATORY Basophils % 0.4 % [facility] LABOR[facility]ORY Basophils Abs 0.0 0.0 - 0.1 [facility] x10(3)/[facility] LABORATORY Immature Gran % 0.60 % NORTH [...] Organization Address City/State/Z[place] [address] (ABNORMAL) Hemogram (08/10/2017 2:30 PM EST) Analysis Performed At Patho logist Time Signature WBC 11.3 (H) 4.0 - 9.5 [facility] x10(3)/[facility] LABORATORY RBC 3.13 (L) 4.58 - [facility] SU 5.54 [facility] x10(6)/[facility] LABORATORY Hemoglobin 8.9 (L) 13.7 - [facility] 16.5 gm/dL [facility]ORY Hematocrit 28.4 (L) 40.5 - [facility] 48.5 % [facility] MCV 90.7 82.9 - [facility] 93.1 [facility] LABORATORY MCH 28.4 27.5 - [facility] SU 32.1 pg [facility]ORY MCHC 31.3 (L) 32.0 - [facility] 35.7 gm/dL [facility] Platelets 213 145 - 357 [facility] x10(3)/[facility] LABORATORY RDWSD 53.7 (H) 36.0 - [facility] SU 45.0 [facility] LABORATORY RDWCV 16.4 (H) 11.4 - [facility] SU 13.8 % [facility] LABORATORY MPV 8.9 7.6 - 12.9 [facility] LABORATORY nRBC % Auto 0.0 % [facility] LABORATORY nRBC Abs Auto 0.000 0.000 - [facility] SU 0.000 [facility] x10(3)/[facility] LABORATORY Specimen Anatomical Collection Method Collection Time Receive d Time (Source) Location / / Volume Laterality Blood specimen 08/10/2017 2:30 PM 018 2:48 (specimen) EST PM EST Resulting Agency Comment Spec In Lab Yonathan Smith MD HEMATOLOGY ORDERABLES Performing Organization Address City/State/[place] [address] (ABNORMAL) POCT Glucose (08/10/2017 1:50 PM EST) athologist Signature POC Glucose 243 (H) 65 - 199 [facility] Comment: [...] [facility] - [place] [address] POCT Glucose (08/10/2017 11:21 AM EST) athologist Signature POC Glucose 156 65 - 199 [facility] Comment: [...] Organization Address City/State/[place] [address] (ABNORMAL) Differential, Automated (08/10/2017 10:28 AM EST) [facility] gist Method Time Signature Neutrophils % 85.3 % [facility] LABORATORY Neutr Abs (ANC) 9.43 (H) 1.70 - [facility] SU 6.10 [facility] x10(3)/[facility] L LABORATORY Lymphocytes % 5.5 % [facility] LABORATORY Lymphocytes Abs 0.6 (L) 0.9 - 3.2 [facility] x10(3)/[facility] LABORATORY Monocytes % 5.9 % [facility] LABORATORY Monocyte Abs 0.6 0.3 - 0.9 [facility] x10(3)/[facility] LABORATORY Eosinophils % 2.1 % [facility] LABORATORY Eosinophils Abs 0.2 0.0 - 0.4 [facility] x10(3)/[facility] LABORATORY Basophils % 0.4 % [facility] LABOR[facility]ORY Basophils Abs 0.0 0.0 - 0.1 [facility] x10(3)/[facility] LABORATORY Immature Gran % 0.80 % NORTH [...] Organization Address City/State/Z[place] [address] (ABNORMAL) Hemogram (08/10/2017 10:28 AM EST) Analysis Performed At Patho logist Time Signature WBC 11.0 (H) 4.0 - 9.5 [facility] x10(3)/[facility] LABORATORY RBC 3.02 (L) 4.58 - [facility] 5.54 [facility] x10(6)/[facility] LABORATORY Hemoglobin 8.8 (L) 13.7 - [facility] 16.5 gm/dL [facility]ORY Hematocrit 28.1 (L) 40.5 - [place] DAVIS 48.5 % [facility]ORATORY MCV 93.0 82.9 - [facility] 93.1 [facility] LABORATORY MCH 29.1 27.5 - [place] 32.1 pg [facility] LABORATORY MCHC 31.3 (L) 32.0 - [place] DAVIS 35.7 gm/dL [facility]ORY Platelets 207 145 - 357 [place] x10(3)/[facility] LABORATORY RDWSD 55.3 (H) 36.0 - [place] [facility] 45.0 [facility] LABORATORY RDWCV 16.4 (H) 11.4 - [place] [facility] 13.8 % [facility] LABORATORY MPV 9.0 7.6 - 12.9 [facility] LABORATORY nRBC % Auto 0.0 % [facility] LABORATORY nRBC Abs Auto 0.000 0.000 - [place] [facility] 0.000 [facility] x10(3)/[facility] LABORATORY Specimen Anatomical Collection Method Collection Time Receive d Time (Source) Location / / Volume Laterality Blood specimen 08/10/2017 10:28 8 (specimen) AM EST 10:35 AM EST Resulting Agency Comment Spec In Lab Yonathan Smith MD HEMATOLOGY ORDERABLES Performing Organization Address City/State/ZIP Code Phon e Number [place] [id number] HOSPITAL LAB[address]ORY [address] VS Angiogram/intervention (vascular) (08/10/2017 [...] 2.5x80 5. Completion RLE angiogram 6. L PAN SHOVER angiogram 7. 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 - L PAN SHOVER angriogram demonstrated: High fe moral bifurcation over the proximal half of the femoral head. L PAN SHOVER access in the distal L PAN SHOVER. - Closure device: Mynx Technical Procedure: ?The [...] for a 45cm 5F Destination. V18 and [place] a nd QuickCross catheters were used [...] bifurcation. Access appeared in the distal R PAN SHOVER. Closure and sheath removal was performed with [...] 2.5x80 5. Completion RLE angiogram 6. L PAN SHOVER angiogram 7. 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 - L PAN SHOVER angriogram demonstrated: High fe moral bifurcation over the proximal half of the femoral head. L PAN SHOVER access in the distal L PAN SHOVER. - Closure device: Mynx Technical Procedure: The [...] for a 45cm 5F Destination. V18 and [place] a nd QuickCross catheters were used [...] bifurcation. Access appeared in the distal R PAN SHOVER. Closure and sheath removal was performed with [...] (ABNORMAL) Differential, Automated (08/10/2017 5:50 AM EST) [facility] Method Time Signature Neutrophils % 80.1 % [facility] LABORATORY Neutr Abs (ANC) 9.01 (H) 1.70 - [facility] 6.10 [facility] x10(3)/[facility] LABORATORY Lymphocytes % 8.8 % [facility]ORY Lymphocytes Abs 1.0 0.9 - 3.2 [facility] LABORATORY Monocytes % 8.3 % [facility]ORY Monocyte Abs 0.9 0.3 - 0.9 [facility] LABORATORY Eosinophils % 2.0 % [facility]OR[facility]ORY Eosinophils Abs 0.2 0.0 - 0.4 [facility] x10(3)/[facility] LABORATORY Basophils % 0.4 % [facility] LABORATORY Basophils Abs 0.0 0.0 - 0.1 [facility] x10(3)/[facility] LABORATORY Immature Gran % 0.40 % NORTH [...] Organization Address City/State/Z[place] [address] (ABNORMAL) Hemogram (08/10/2017 5:50 AM EST) Analysis Performed At Patho logist Time Signature WBC 11.3 (H) 4.0 - 9.5 [facility] x10(3)/[facility] LABORATORY RBC 3.15 (L) 4.58 - [facility] 5.54 [facility] x10(6)/[facility] LABORATORY Hemoglobin 8.9 (L) 13.7 - [facility] 16.5 gm/dL [facility]ORY Hematocrit 29.0 (L) 40.5 - [facility] 48.5 % [facility]ORATORY MCV 92.1 82.9 - [facility] 93.1 [facility] LABORATORY MCH 28.3 27.5 - [place] [facility] 32.1 pg [facility] LABORATORY MCHC 30.7 (L) 32.0 - [facility] 35.7 gm/dL [facility] Platelets 231 145 - 357 [facility] x10(3)/[facility] LABORATORY RDWSD 53.9 (H) 36.0 - [place] [facility] 45.0 [facility] LABORATORY RDWCV 16.2 (H) 11.4 - [facility] SU 13.8 % [facility] LABORATORY MPV 8.7 7.6 - 12.9 [facility] LABORATORY nRBC % Auto 0.0 % [facility] LABORATORY nRBC Abs Auto 0.000 0.000 - [facility] 0.000 [facility] x10(3)/[facility] LABORATORY Specimen Anatomical Collection Method Collection Time Receive d Time (Source) Location / / Volume Laterality Blood specimen 08/10/2017 5:50 AM 018 5:59 (specimen) EST AM EST Resulting Agency Comment Spec In Lab Yonathan Smith MD HEMATOLOGY ORDERABLES Performing Organization Address City/State/Z[place] [address] (ABNORMAL) Basic Metabolic Panel (non-fasting) (08/10/2017 5:50 AM EST) P athologist Signature Glucose Lvl 135 65 - 199 [facility] mg/dL [facility] LABORATORY [...] [facility]OR[facility]ORY Estimated GFR >60 >=60 [facility] Comment: The reported eGFR should be multiplied b y 1.2 for patients. The MDRD is not an appropriate measure o f renal function for patients with body mass extremes or in patients with acute kidney failure. http://[email or web address]/DHnkdep http://[employer]/DHMCnkf Specimen Anatomical Collection Method Collection Time Receive d Time (Source) Location / / Volume Laterality Blood specimen 08/10/2017 5:50 AM 018 5:59 (specimen) EST AM EST Resulting Agency Comment Spec In Lab Yonathan Smith MD CHEMISTRY ORDERABLES Performing Organization Address [facility] [place] [place] [address] (ABNORMAL) Prothrombin Time (08/10/2017 [...] Performing Organization Address City/[facility] [place] [address] (ABNORMAL) POCT Glucose (08/10/2017 4:01 AM EST) athologist Signature POC Glucose 206 (H) 65 - 199 [facility] mg/dL [facility] LABORATORY [...] Organization Address City/State/[place] [address] POCT Glucose (08/10/2017 2:01 AM EST) athologist Signature POC Glucose 188 65 - 199 [place] [facility] mg/dL [facility] Comment: [...] [facility] - [place] [address] (ABNORMAL) POCT Glucose (08/09/2017 11:42 PM EST) athologist Signature POC Glucose 283 (H) 65 - 199 [facility] SU mg/dL [facility] Comment: [...] Organization Address City/State/[place] [address] POCT Glucose (08/09/2017 8:55 PM EST) athologist Signature POC Glucose 182 65 - 199 [place] [facility] mg/dL [facility] Comment: [...] [facility] - [place] [address] (ABNORMAL) APTT (08/09/2017 6:42 [...] [facility] - [place] [address] POCT Glucose (08/09/2017 4:41 PM EST) athologist Signature POC Glucose 195 65 - 199 [facility]dL [facility] Comment: [...] [facility] - [place] [address] POCT Glucose (08/09/2017 12:29 PM EST) athologist Signature POC Glucose 140 65 - 199 [facility]dL [facility] Comment: Supplemental ranges: <140 mg/dL before meals <180 mg/dL all other times of the day Specimen Anatomical Collection Method Collection Time Receive d Time (Source) Location / / Volume Laterality Blood specimen 08/09/2017 12:29 8 (specimen) PM EST 12:29 PM EST Yonathan Smith MD POINT OF CARE TEST ORDERABLE S Performing Organization Address [facility] [place]/ZIP Code Phon e Number [address] POCT Glucose (08/09/2017 9:59 AM EST) P athologist Signature POC Glucose 135 65 - 199 [facility] mg/dL [facility] Comment: Supplemental ranges: <140 mg/dL before meals <180 mg/dL all other times of the day Specimen Anatomical Collection Method Collection Time Receive d Time (Source) Location / / Volume Laterality Blood specimen 08/09/2017 9:59 AM 018 9:59 (specimen) EST AM EST Yonathan Smith MD POINT OF CARE TEST ORDERABLE S Performing Organization Address [facility] [place] [address] Specimen to Pathology (08/09/2017 [...] [facility] [place] [address] Surgical Pathology Report (08/09/2017 8:40 AM EST) Component Value Ref Test Analysis Performed At Patholo gist Range Method Time Signature Surgical [id number] ? Location: [facility]; [facility]; A [facility] Report The signing pathologist has [...] Henrique Flower Verified: ??08/13/2017 ?Pathologist Performed at: ??-[facility] Dept. of Pathology, [place], [place] CLINICAL INFORMATION Specimen Submitted: A - [...] Organization Address City/State/ZIP [place] [address] Anaerobic Culture (08/09/2017 8:30 AM EST) [facility] Method Time Signature Anaerobic No anaerobic [...] [facility] [place] [address] (ABNORMAL) Abscess/Wound Aspirate Culture (08/09/2017 8:30 AM EST) [facility] [employer] Method Time Signature Abscess/Wound Moderate mixed [facility] Aspirate bacterial [place] Culture morphotypes [facility] normal LABORATORY cutaneous leroy (A) Gram Stain Rare White Blood Cells [place] Few Gram Positive Cocci in pairs [place] () [facility] Organism Gram Positive [place] Cocci in pairs [place] () [facility] LABOR[facility]ORY Specimen Anatomical [...] [place]/ZIP Code Phon [place] [address] POCT Glucose (08/09/2017 4:28 AM EST) P athologist Signature POC Glucose 128 65 - 199 [facility]/dL [facility] Comment: [...] Organization Address City/State/[place] [address] ABORH Recheck Status (08/09/2017 1:10 AM EST) [facility] Method Time Signature ABORH Type Completed [facility] LABORATORY Specimen Anatomical Collection Method Collection Time Receive d Time (Source) Location / / Volume Laterality Blood specimen 08/09/2017 1:10 AM 018 1:35 (specimen) EST AM EST Resulting Agency Comment Spec In Lab Yonathan Smith MD BLOOD BANK ORDERABLES Performing Organization Address City/State/[place] [address] Antibody screen (08/09/2017 1:10 AM EST) [facility] Method [address] Signature Ab Screen Negative [facility] LABORATORY Expires at 08/12/2017 [facility] [id number] on: [facility] LABORATORY Specimen Anatomical Collection Method Collection Time Receive d Time (Source) Location / / Volume Laterality Blood specimen 08/09/2017 1:10 AM 018 1:35 (specimen) EST AM EST Resulting Agency Comment Spec In Lab Yonathan Smith MD BLOOD BANK ORDERABLES Performing Organization Address City/State/[place] [address] ABO/Rh Typing (08/09/2017 1:10 [...] Organization Address City/State/[place] [address] (ABNORMAL) APTT (08/09/2017 1:10 [...] Organization Address City/State/Z[place] [address] (ABNORMAL) Differential, Automated (08/09/2017 1:10 AM EST) [facility] Method Time Signature Neutrophils % 76.2 % [facility] LABORATORY Neutr Abs (ANC) 8.59 (H) 1.70 - [facility] 6.10 [facility] x10(3)/[facility] LABORATORY Lymphocytes % 11.0 % [facility] LABORATORY Lymphocytes Abs 1.2 0.9 - 3.2 [facility] x10(3)/[facility] LABORATORY Monocytes % 8.4 % [facility] LABORATORY Monocyte Abs 1.0 (H) 0.3 - 0.9 [facility] x10(3)/[facility] LABORATORY Eosinophils % 3.5 % [facility] LABORATORY Eosinophils Abs 0.4 0.0 - 0.4 [facility] x10(3)/[facility] LABORATORY Basophils % 0.5 % [facility] LABORATORY Basophils Abs 0.1 0.0 - 0.1 [facility] x10(3)/[facility] LABORATORY Immature Gran % 0.40 % NOR[facility] [...] Organization Address City/State/Z[place] [address] (ABNORMAL) Hemogram (08/09/2017 1:10 AM EST) Analysis Performed At Patho logist Time Signature WBC 11.3 (H) 4.0 - 9.5 [facility] x10(3)/[facility] LABORATORY RBC 3.47 (L) 4.58 - [facility] 5[facility]54 [facility] x10(6)/[facility] LABORATORY Hemoglobin 10.0 (L) 13.7 - [facility] 16.5 gm/dL [facility] LABORATORY Hematocrit 31.9 (L) 40.5 - [facility] 48.5 % [facility] LABORATORY MCV 91.9 82.9 - [facility] 93.1 [facility] LABORATORY MCH 28.8 27.5 - [facility] 32.1 pg [facility] LABORATORY MCHC 31.3 (L) 32.0 - [facility] 35.7 gm/dL [facility] LABOR[facility]ORY Platelets 234 145 - 357 [facility] x10(3)/[facility] LABORATORY RDWSD 54.0 (H) 36.0 - [facility] SU 45.0 [facility] LABORATORY RDWCV 16.2 (H) 11.4 - [facility] SU 13.8 % [facility] LABORATORY MPV 8.7 7.6 - 12.9 [facility] LABORATORY nRBC % Auto 0.0 % [facility] LABORATORY nRBC Abs Auto 0.000 0.000 - [facility] SU 0.000 [facility] x10(3)/[facility] LABORATORY Specimen Anatomical Collection Method Collection Time Receive d Time (Source) Location / / Volume Laterality Blood specimen 08/09/2017 1:10 AM 018 1:19 (specimen) EST AM EST Resulting Agency Comment Spec In Lab Yonathan Smith MD HEMATOLOGY ORDERABLES Performing Organization Address City/[facility] [place] [address] (ABNORMAL) Prothrombin Time (08/09/2017 [...] [facility] [place] [address] (ABNORMAL) Basic Metabolic Panel (non-fasting) (08/09/2017 1:10 AM EST) P athologist Signature Glucose Lvl 108 65 - 199 [facility] mg/dL [facility] LABORATORY [...] or in patients with acute kidney failure. http://[employer]/DHnkdep http://[employer] Time [employer]/DHMCnkf Specimen Anatomical Collection Method Collection Time Receive d Time (Source) Location / / Volume Laterality Blood specimen 08/09/2017 1:10 AM 018 1:19 (specimen) EST AM EST Resulting Agency Comment Spec In Lab Yonathan Smith MD CHEMISTRY ORDERABLES Performing Organization Address City/State/ZIP Code Phon e Number [address] POCT Glucose (08/09/2017 12:05 AM EST) athologist Signature POC Glucose 128 65 - 199 [facility] mg/dL [facility] LABORATORY [...] [facility] [place] [address] (ABNORMAL) POCT Glucose (08/08/2017 7:36 PM EST) athologist Signature POC Glucose 215 (H) 65 - 199 [facility]/dL [facility] LABORATORY Comment: [...] Organization Address City/State/[place] [address] (ABNORMAL) POCT Glucose (08/08/2017 6:23 PM EST) P athologist Signature POC Glucose 216 (H) 65 - 199 [facility]/dL [facility] LAB[facility]ORY Comment: [...] [facility] [place] [address] (ABNORMAL) APTT (08/08/2017 6:00 [...] [facility] [place] [address] POCT Glucose (08/08/2017 4:42 PM EST) athologist Signature POC Glucose 78 65 - 199 [facility] LABORATORY Comment: [...] Organization Address City/State/[place] [address] (ABNORMAL) POCT Glucose (08/08/2017 4:01 PM EST) athologist Signature POC Glucose 58 (L) 65 - 199 [facility] mg/dL [facility] LABORATORY Comment: [...] Organization Address City/State/[place] [address] POCT Glucose (08/08/2017 11:51 AM EST) athologist Signature POC Glucose 90 65 - 199 [facility] mg/dL [facility] LABORATORY Comment: [...] Organization Address City/State/[place] [address] (ABNORMAL) APTT (08/08/2017 10:27 [...] Address City/State/ZIP Code Phon e Number [address] POCT Glucose (08/08/2017 8:02 AM EST) athologist Signature POC Glucose 178 65 - 199 [facility] mg/dL [facility] LABORATORY [...] [facility] [place] [address] (ABNORMAL) APTT (08/08/2017 4:51 AM EST) athologist Signature PTT >160 25 - 35 [facility] (Critical) sec [facility] LABORATORY Comment: Called by: HOWARD, [...] Organization Address City/State/[place] [address] (ABNORMAL) Differential, Automated (08/08/2017 4:51 AM EST) [facility] gist Method Time Signature Neutrophils % 77.9 % [facility] LABORATORY Neutr Abs (ANC) 8.17 (H) 1.70 - [facility] 6.10 [facility] x10(3)/[facility] LABORATORY Lymphocytes % 10.3 % [facility] LABORATORY Lymphocytes Abs 1.1 0.9 - 3.2 [facility] x10(3)/[facility] LABORATORY Monocytes % 7.0 % [facility] LABORATORY Monocyte Abs 0.7 0.3 - 0.9 [facility] x10(3)/[facility] LABORATORY Eosinophils % 3.6 % [facility] LABORATORY Eosinophils Abs 0.4 0.0 - 0.4 [facility] x10(3)/[facility] LABORATORY Basophils % 0.5 % [facility] LABORATORY Basophils Abs 0.0 0.0 - 0.1 [facility] x10(3)/[facility] LABORATORY Immature Gran % 0.70 % [facility] [...] Organization Address City/State/[place] [address] (ABNORMAL) Hemogram (08/08/2017 4:51 AM EST) Analysis Performed At Patho logist Time Signature WBC 10.5 (H) 4.0 - 9.5 [facility] x10(3)/[facility] LABORATORY RBC 3.27 (L) 4.58 - [facility] 5.54 [facility] x10(6)/[facility] LABORATORY Hemoglobin 9.3 (L) 13.7 - [facility] 16.5 gm/dL [facility] LABORATORY Hematocrit 30.3 (L) 40.5 - [facility] 48.5 % [facility] LABORATORY MCV 92.7 82.9 - [facility] 93.1 [facility] LABORATORY MCH 28.4 27.5 - [facility] 32.1 pg [facility] LABORATORY MCHC 30.7 (L) 32.0 - [facility] 35.7 gm/dL [facility] LABORATORY Platelets 252 145 - 357 [facility] x10(3)/[facility] LABORATORY RDWSD 54.6 (H) 36.0 - [facility] 45.0 [facility] LABORATORY RDWCV 16.2 (H) 11.4 - [facility] 13.8 % [facility] LABORATORY MPV 9.1 7.6 - 12.9 [facility] LABORATORY nRBC % Auto 0.0 % [facility] LABORATORY nRBC Abs Auto 0.000 0.000 - [facility] 0.000 [facility] x10(3)/[facility] LABORATORY Specimen Anatomical Collection Method Collection Time Receive d Time (Source) Location / / Volume Laterality Blood specimen 08/08/2017 4:51 AM 018 5:14 (specimen) EST AM EST Resulting Agency Comment Spec In Lab Yonathan Smith MD HEMATOLOGY ORDERABLES Performing Organization Address City/State/[place] [address] (ABNORMAL) Prothrombin Time (08/08/2017 [...] Organization Address City/State/ZIP [place] [address] (ABNORMAL) Basic Metabolic Panel (non-fasting) (08/08/2017 4:51 AM EST) athologist Signature Glucose Lvl 229 (H) 65 - 199 [facility] mg/dL [facility] LABORATORY [...] or in patients with acute kidney failure. [email or web address] Time [email or web address] [email or web address] Time [email or web address] Specimen Anatomical Collection Method Collection Time Receive d Time (Source) Location / / Volume Laterality Blood specimen 08/08/2017 4:51 AM 018 5:14 (specimen) EST AM EST Resulting Agency Comment Spec In Lab Yonathan Smith MD CHEMISTRY ORDERABLES Performing Organization Address City/[facility]/ZIP Code Phon e Number [address] POCT Glucose (08/08/2017 4:20 AM EST) athologist Signature POC Glucose 193 65 - 199 [facility] mg/dL [facility] LABORATORY [...] Address City/State/ZIP Code Phon e Number [address] POCT Glucose (08/07/2017 11:11 PM EST) athologist Signature POC Glucose 124 65 - 199 [facility] mg/dL [facility] [...] [facility] [place] [address] (ABNORMAL) APTT (08/07/2017 10:18 [...] [facility] [place] [address] POCT Glucose (08/07/2017 8:10 PM EST) athologist Signature POC Glucose 140 65 - 199 [facility] mg/dL [facility] LABORATORY [...] [facility] [place] [address] POCT Glucose (08/07/2017 5:27 PM EST) athologist Signature POC Glucose 187 65 - 199 [facility] mg/dL [facility] [...] [facility] [place] [address] POCT Glucose (08/07/2017 3:29 PM EST) athologist Signature POC Glucose 86 65 - 199 [facility]/dL [facility] LABORATORY Comment: Supplemental ranges: <140 mg/dL before meals <180 mg/dL all other times of the day Specimen Anatomical Collection Method Collection Time Receive d Time (Source) Location / / Volume Laterality Blood specimen 08/07/2017 3:29 PM 018 3:29 (specimen) EST PM EST Yonathan Smith MD POINT OF CARE TEST ORDERABLE S Performing Organization Address [facility]/ZIP [facility] [place] [address] (ABNORMAL) APTT (08/07/2017 2:50 [...] Organization Address City/[facility]/ZIP [facility] Phon e Number [address] (ABNORMAL) POCT Glucose (08/07/2017 2:23 PM EST) athologist Signature POC Glucose 55 (L) 65 - 199 [facility] mg/dL [facility] LABORATORY Comment: [...] Address City/State/ZIP Code Phon e Number [address] POCT Glucose (08/07/2017 12:08 PM EST) P athologist Signature POC Glucose 77 65 - 199 [facility] mg/dL [facility] [...] Address City/State/ZIP Code Phon e Number [address] (ABNORMAL) Differential, Automated (08/07/2017 7:30 AM EST) Patholo gist Method Time Signature Neutrophils % 73.8 % [facility] LABORATORY Neutr Abs (ANC) 7.17 (H) 1.70 - [facility] 6.10 [facility] x10(3)/[facility] LABORATORY Lymphocytes % 12.2 % [facility] LABORATORY Lymphocytes Abs 1.2 0.9 - 3.2 [facility] x10(3)/[facility] LABORATORY Monocytes % 9.0 % [facility] LABORATORY Monocyte Abs 0.9 0.3 - 0.9 [facility] x10(3)/[facility] LABORATORY Eosinophils % 3.9 % [facility] LABORATORY Eosinophils Abs 0.4 0.0 - 0.4 [facility] x10(3)/[facility] LABORATORY Basophils % 0.6 % [facility] LABORATORY Basophils Abs 0.1 0.0 - 0.1 [facility] x10(3)/[facility] LABORATORY Immature Gran % 0.50 % [facility] [...] Organization Address City/State/Z[place] [address] (ABNORMAL) Hemogram (08/07/2017 7:30 AM EST) Analysis Performed At Patho logist Time Signature WBC 9.7 (H) 4.0 - 9.5 [facility] x10(3)/[facility] LABORATORY RBC 3.54 (L) 4.58 - [facility] 5.54 [facility] x10(6)/[facility] LABORATORY Hemoglobin 9.9 (L) 13.7 - [facility] 16.[facility] gm/dL [facility] LABORATORY Hematocrit 32.3 (L) 40.5 - [facility] 48.5 % [facility] LABORATORY MCV 91.2 82.9 - [facility] 93.1 [facility] LABORATORY MCH 28.0 27.5 - [facility] 32.1 pg [facility] LABORATORY MCHC 30.7 (L) 32.0 - [facility] 35.7 gm/dL [facility] LABORATORY Platelets 312 145 - 357 [facility] x10(3)/[facility] LABORATORY RDWSD 53.2 (H) 36.0 - [facility] 45.0 [facility] LABORATORY RDWCV 16.0 (H) 11.4 - [facility] 13.8 % [facility] LABORATORY MPV 8.9 7.6 - 12.9 [facility] LABORATORY nRBC % Auto 0.0 % [facility] LABORATORY nRBC Abs Auto 0.000 0.000 - [facility] 0.000 [facility] x10(3)/[facility] LABORATORY Specimen Anatomical Collection Method Collection Time Receive d Time (Source) Location / / Volume Laterality Blood specimen 08/07/2017 7:30 AM 018 7:45 (specimen) EST AM EST Resulting Agency Comment Spec In Lab Yonathan Smith MD HEMATOLOGY ORDERABLES Performing Organization Address City/State/ZIP [place] [address] (ABNORMAL) Basic Metabolic Panel (non-fasting) (08/07/2017 7:30 AM EST) P athologist Signature Glucose Lvl 80 65 - 199 [facility] mg/dL [facility] LABORATORY [...] or in patients with acute kidney failure. [email or web address] Time Translation/DHnkdep http://Real Time Translation/DHMCnkf Specimen Anatomical Collection Method Collection Time Receive d Time (Source) Location / / Volume Laterality Blood specimen 08/07/2017 7:30 AM 018 7:45 (specimen) EST AM EST Resulting Agency Comment Spec In Lab Yonathan Smith MD CHEMISTRY ORDERABLES Performing Organization Address City/[facility] Phon e Number [address] POCT Glucose (08/07/2017 7:27 AM EST) athologist Signature POC Glucose 81 65 - 199 [facility] mg/dL [facility] LABORATORY Comment: Supplemental ranges: <140 mg/dL before meals <180 mg/dL all other times of the day Specimen Anatomical Collection Method Collection Time Receive d Time (Source) Location / / Volume Laterality Blood specimen 08/07/2017 7:27 AM 018 7:27 (specimen) EST AM EST Yonathan Smith MD POINT OF CARE TEST ORDERABLE S Performing Organization Address [facility] Phon e Number [address] APTT (08/07/2017 7:04 AM [...] [facility] [address] (ABNORMAL) Prothrombin Time (08/07/2017 [...] Organization Address City/State/[place] [address] POCT Glucose (08/07/2017 4:03 AM EST) athologist Signature POC Glucose 93 65 - 199 [facility]/dL [facility] LABORATORY Comment: [...] Organization Address City/State/[place] [address] POCT Glucose (08/07/2017 12:04 AM EST) athologist Signature POC Glucose 107 65 - 199 [facility] mg/dL [facility] LABORATORY Comment: [...] Address City/State/ZIP Code Phon e Number [address] POCT Glucose (08/06/2017 7:56 PM EST) P athologist Signature POC Glucose 178 65 - 199 [facility] mg/dL [facility] LABORATORY [...] Address City/State/ZIP Code Phon e Number [address] [id number] (08/06/2017 2:32 PM EST) Component Value Ref Test Analysis Performed At Patholo gist Range Method Time Signature VB Text Department: Vascular Surgery Lab VASCUBASE Report Patient: [id number] (GREGORY HOANG) CPT: [id number] ICD10: I99.8 Referring Physician: YONATHAN SMITH ?? [...] [id number] (Given - P rovider: Henrique Marks RN)0869 (Given - Provider: Chiquis Mcgrath RN)1135 (Given [...]
Routine documented in this encounter Care Teams Batch Maker Relationship Specialty Start Date End Date Lovely Vicente MD PCP - General 04/16/[address] [place] [address] [address] [place] [address] documented as of this encounter
--- OUTSIDE RECORDS SUMMARY | 2022-05-15 08:25 | XMS_ITS | Encounter Summary ---
:1945 Author Organization [place] [address] Care Team Providers Name Role Phone Lovely Vicente MD Primary Care Provider Reason for Visit Auth/Cert Specialty Diagnoses / Procedures Referred By Contact Refer red To Contact Diagnoses Critical lower limb ischemia CELLULITIS RT FOOT Procedures EMERGENCY Referral ID Status Reason Start Date Expiration Date Visits Requ ested Visits Authorized [id number] 1 1 Encounter Details Date Type Department Care Team Description 08/11/2017 Surgery Main Operating Room Yonathan Smith (M SURG) DRESSING CHANGE Barbara Ocampo MD (FOR OTHER THAN IVAN) [facility] UNDER ANES. (WRVU 0.86) [facility] DR Siddiqui V[place] [address] [place] [id number] [phone] (Wo rk) Social History Tobacco Use Types [...] addition to a pseudoaneurysm of his R ORNAMENTAL IRON WORKER APPRENTICE and bilateral anterior tibial artery occlusions. Patient [...] Dorsalis Pedis (Ankle) Artery ?132 ? 0.94 ??[place]-Biphasic ? Posterior Tibial (Ankle) Artery ??154 ? 1.10 ??[place]-Biphasic ? Fourth Toe ? 67 ?0.48 ?? [...] For any problems or questions please call [phone] ZELDA Smith, induction machine operator Nurse Clinician For issues on weeknights after 5pm and weekends please call [phone] and ask for the Vascular Fellow conservation technician. General Instructions None Future Appointments and Orders Future Appointments Provider Department Dept Phone 08/26/2017 4:00 PM Aurelia Rivera PA [facility] Surgery [facility] [place] [phone] 09/07/2017 3:00 PM LAB, THREE L Lab 3L [facility] [phone] 09/07/2017 4:00 PM Luz Prescott MD Endocrinology at [place] [phone] 09/09/2017 8:00 AM Barbra Soares APRN Pain Management at [place] [phone] Please bring a list of your current [...] For any problems or questions please call [phone] ZELDA Smith, induction machine operator Nurse Clinician For issues on weeknights after 5pm and weekends please call [phone] and ask for the Vascular Fellow conservation technician. documented in this encounter Medications at [...] Care Management Discharge Note Patient Destination: [facility] ([facility]) [address] [place] [id number] Transportation: with (at bedside) Time of Discharge: by 12 noon Level of Care: swing Patient Aware: yes Family Notified: yes Md to call report to: Yissel Quintero POWERTRAIN DESIGN ENGINEER already called RN to call report to: [phone] Shirin Wolf Office of Care Management Pager [phone] Shirin Wagner RN - 08/16/2017 10:50 AM EST [facility] has offered pt swing bed. Pt and accept bed. will transport via car. POWERTRAIN DESIGN ENGINEER Yissel Quintero aware; d/c paperwork will be completed by 12 noon. [facility] requests pt arrival by 1400 today; POWERTRAIN DESIGN ENGINEER, RN, and family aware. POWERTRAIN DESIGN ENGINEER called [facility] and was told that they prefer pt to arrive with wound vac dressing applied but clamped. POWERTRAIN DESIGN ENGINEER applied new wound vac dressing. RN has [facility] number to call report. PASSR completed; POWERTRAIN DESIGN ENGINEER paged to request provider signature in [...] 10:34 AM EST Office of Care Management/Machine Dyer Patient Name: Gregory Hoang : 1945 Patient has been offered a swing bed at [facility]. The patient will be transported by private transportation. No MD to MD report necessary Please call Nursing Report to [phone], ask for horse race starter. Info to accompany patient: Narcotic Prescriptions Copies of Medication Administration Records and IV sheets for past 10 days. Plan: Machine Dyer will be available to the patient and Wheelchair Van Operator First Responder-RN and/or Plant Technical Specialist for further assistance. Patient will be discharged to: [facility] [address] [place] [id number] Radha Powers, Machine Dyer Mira Black, VAMSI - 08/15/2017 10:05 PM EST [address] Flores to ask if he wanted to hold metoprolol dose. BP 95/58. OK to hold this dose Courtney Brito - 08/15/2017 3:26 PM EST Office of Care Management(OCM)/Machine Dyer(RS)/ D/C Planning re : Patient is medically [...] status. CM Notified RS: Courtney Suazo Pager [phone] Viyr Starkey MD - 08/15/2017 10:01 AM EST Vascular Surgery Progress Note ID: Gregory oHang is a 72 y.o. 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 Vac in place. [...] patient's referral to: [facility] PHONE: [phone] FAX: [phone] CM spoke with RS who said that [...] rehab. Await recommendations from PT. Covering pager #[phone]. 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 Immunochemist Kaitlin Saha, RN Pager #[phone] Payam Rosales - 08/13/2017 2:37 PM EST Delivery Engineer Encounter Note Patient Name: Gregory Hoang : [id number] MR#: [id number] Admit Date: 08/06/2017 1:41 PM Hospital Day 7 days Narrative: Visited to introduce and assess acceptance of Delivery Engineer services. Pt was awake, alert, oriented and in chair and family was there. Assessment:Patient coping positively with stresses of illness/hospitalization at this time. Pt says that he is hoping to get better and his family was there. Pt says that he has family care and supportand taking one day at time. Intervention and Outcome: Provided emotional support and encouraging presence. 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 A letter describing our affiliations was reviewed with them and theywere educated about their right to choose where referrals are placed. Patient requests referral to [facility]. PHONE: [phone] FAX: [phone]. And Home NPWT (Negative Pressure Wound Therapy) aka wound vac device made available to pt. Serial # confirmed. Reviewed [facility] Proof of Delivery/Assignment of Benefits Statement(POD/AOB) Form w patient or authorized agent signing on behalf of patient. Copy of POD/AOB provided to pt and other copy faxed to [employer] @ fax# [phone] Expected date of discharge: 08/12/2017. 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 Address: [address] [place] [address] [place] [address] (home) Mobile: Telephone Information: Referring Provider: No [...] [facility] MA[facility] OR ??? PRO CABG, ARTERIAL, SINGLE N/A 07/07/2017 @CABG, USING ARTERIAL GRAFT;SINGLE ARTERIAL GRAFT (WRVU 33.75) performed by Yuan Retana MD at [facility] MAIN OR ??? PRO CABG, ARTERY-VEIN, TWO N/A 07/07/2017 @CABG, TWO VENOUS GRAFTS & ARTERIAL GRAFT (WRVU 7.93) performed by Yuan Retana MD at [facility] MAIN OR ??? PRO COLONOSCOPY, REMV LESN, SNARE 01/16/2014 COLONOSCOPY, POLYPECTOMY, REMOVAL LESION BY SNARE performed by Nohemi Jaimes MD at [facility] ENDOSCOPY ??? PRO ENDOSCOPY W/VIDEO-ASST VEIN HARVEST, CABG Right 07/07/2017 ENDOSCOPIC HARVEST VEIN(S) FOR CABG (WRVU 0.31) performed by Yuan Retana MD at [facility] MAIN OR ??? PRO THYROIDECTOMY 03/28/2013 THYROIDECTOMY, TOTAL OR COMPLETE performed by Manny Mcnkight MD at 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 Heparin gtt continues to [...] : 1945 AGE 72 y.o. Address: [address] [place] [address] [place] [address] (home) Mobile: Telephone Information: Referring Provider: No [...] [facility] ??? PRO CABG, ARTERIAL, SINGLE N/A 07/07/2017 @CABG, USING ARTERIAL GRAFT;SINGLE ARTERIAL GRAFT (WRVU 33.75) performed by Yuan Retana MD at [facility] MAIN OR ??? PRO CABG, [...] performed by Yuan Retana MD at [facility] MAIN OR ??? PRO THYROIDECTOMY 03/28/2013 THYROIDECTOMY, TOTAL OR COMPLETE performed by Manny Mcknight MD at 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 Vascular resident conservation technician and will forward result to the team prior to rounds. 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 Patient [...] [facility] ??? PRO CABG, ARTERIAL, SINGLE N/A 07/07/2017 @CABG, USING ARTERIAL GRAFT;SINGLE ARTERIAL GRAFT (WRVU 33.75) performed by Yuan Retana MD at [facility] MAIN OR ??? PRO CABG, ARTERY-VEIN, TWO N/A 07/07/2017 @CABG, TWO VENOUS GRAFTS & ARTERIAL GRAFT (WRVU 7.93) performed by Yuan Retana MD at [facility] MAIN OR ??? PRO COLONOSCOPY, REMV LESN, SNARE 01/16/2014 COLONOSCOPY, POLYPECTOMY, REMOVAL LESION BY SNARE performed by Nohemi Jaimes MD at [facility] ENDOSCOPY ??? PRO ENDOSCOPY W/VIDEO-ASST VEIN HARVEST, CABG Right 07/07/2017 ENDOSCOPIC HARVEST VEIN(S) FOR CABG (WRVU 0.31) performed by Yuan Retana MD at [facility] MAIN OR ??? PRO THYROIDECTOMY 03/28/2013 THYROIDECTOMY, TOTAL OR COMPLETE performed by Manny Mcknight MD at [facility] MAIN OR Functional Status/Social Hx: [...] left blue toes with CTA showing R ORNAMENTAL IRON WORKER APPRENTICE pseudoaneurysm (now thrombosed) and occluded ATs bilaterally. [...] documented in this encounter Procedure Notes Steven hZang MD - 08/10/2017 10:03 AM EST Vascular Surgery Procedure Note Pre-procedure Dx: Blue toe syndrome Post-procedure Dx: Occluded R AT Procedure: 1. Left femoral arterial access 2. RLE angiogram 3. Selective catheterization of R plantar artery 4. Balloon angioplasty of R PT with Eleazar 2.5x80 5. Completion RLE angiogram 6. L ORNAMENTAL IRON WORKER APPRENTICE angiogram 7. 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 - L ORNAMENTAL IRON WORKER APPRENTICE angriogram demonstrated: High femoral bifurcation over the proximal half of the femoral head. L ORNAMENTAL IRON WORKER APPRENTICE access in the distal L ORNAMENTAL IRON WORKER APPRENTICE. - Closure device: Mynx Technical Procedure: The [...] for a 45cm 5F Destination. V18 and Camas and QuickCross catheters were used to select [...] 5F. A stationed picture of the L ORNAMENTAL IRON WORKER APPRENTICE was performed as the patient was noted to have a very high bifurcation. Access appeared in the distal R ORNAMENTAL IRON WORKER APPRENTICE. Closure and sheath removal was performed with [...] PM EST 1440 report called to 5 [place] nurse Tessa AGUSTIN documented in this encounter Miscellaneous Notes Plan of Care - Dory Truong RN - 08/16/2017 10:51 AM EST Problem: Patient Care Overview Goal: Plan of Care Review Outcome: Outcome (s) achieved Date Met: 08/16/17 08/14/17 1939 08/16/17 5071 Coping/Psychosocial Plan Of Care Reviewed With -- [...] sit/sit to supine -- Bed Mobility Goal, [place] Level independent -- Bed Mobility Goal, Date [...] days -- Transfer Training Goal, Activity Type kya-pu-rmexj/twhjb-pi-avf -- Transfer Train Goal, [place] Level conditional independence -- Transfer Train Goal, [...] call cabello within reach, Hourly rounding by RN/FRAME STRAIGHTENER. Bed alarm / Chair alarm. Patient-specific fall [...] Conf Participants nursing;family;physician Plan of Care - Cihquis Mcgrath RN - 08/15/2017 6:59 PM EST [...] Smith MD - 08/15/2017 6:28 PM EST [facility] Operative Note Patient Name: Gregory Hoang : [id number] MR#: [id number] Case Date: 08/09/2017 Surgeon: Surgeon(s) and Role: [...] 2.5x80 5. Completion RLE angiogram 6. L ORNAMENTAL IRON WORKER APPRENTICE angiogram 7. Mynx closure Precautions/Restrictions: fall, sternal [...] other (see comments) (or swing bed) Pager: [phone] BASSAM ELIAS, PT 08/14/2017 Inpatient Physical Therapy [...] to Achieve by discharge Gait Training Goal, [place] Level conditional independence;set up required Gait Training [...] choices are: 1- [facility] PHONE: [phone] FAX: [phone] 2- [facility] ([facility]) [address] [place] [address] 3- [facility]) [address] [place] [address] I have discussed Medicare/Private Insurance [...] RS/CM on Wednesday to follow-up. Covering pager #[phone] for today. Plan of Care - Henrique [...] with additional findings of pseudoaneurysm on R ORNAMENTAL IRON WORKER APPRENTICE and bilateral anterior tibial artery occlusions. Was [...] an outpatient once discharged. Have patient call [phone] to set up an appointment. Follow-up: Dermatology will sign-off for now. Please do not hesitate to contact us if you have any questions orconcerns. Impression and Recommendations discussed with primary team on 08/13/2017. Karo Henderson MD Resident in Dermatology Section of Dermatology, Department of Surgery [facility] Pager [phone] Patient seen and evaluated with staff Cover Creaser: Halima Cordero MD Section of Dermatology [facility] Level of Resident Supervision: Direct [...] 2.5x80 5. Completion RLE angiogram 6. L ORNAMENTAL IRON WORKER APPRENTICE angiogram 7. Mynx closure Active Non-Hospital Problems [...] home with home health ([facility] PT[facility]OT) Pager: [phone] YASIR TELLO OT 08/12/2017 Occupational Therapy Rehabilitation [...] 2.5x80 5. Completion RLE angiogram 6. L ORNAMENTAL IRON WORKER APPRENTICE angiogram 7. Mynx closure Past Medical History: [...] with 24/7 assistance and maximal services) Pager: [phone] NICHOLAS MORA, JESSIE 08/12/2017 Physical Therapy Rehabilitation [...] sit/sit to supine -- Bed Mobility Goal, [place] Level independent -- Bed Mobility Goal, Outcome Achieved -- goal ongoing Goal: Gait Training Goal Stand Alone Therapy Goal Outcome: Ongoing (Interventions Implemented as Appropriate) 08/11/17 1310 08/12/17 1510 Gait Training Goal Gait Training Goal, Date Established 08/11/17 -- Gait Training Goal, Time to Achieve 5 - 7 days -- Gait Training Goal, [place] Level conditional independence -- Gait Training Goal, [...] days -- Transfer Training Goal, Activity Type bpk-kr-yabqi/ptldb-pl-yuq -- Transfer Train Goal, [place] Level conditional independence -- Transfer Training Goal, [...] Smith MD - 08/11/2017 2:52 PM EST [facility] Operative Note Patient Name: Gregory Hoang : [id number] MR#: [id number] Case Date: 08/11/2017 Surgeon: Surgeon(s) and Role: [...] 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 Completion RLE angiogram 6. L ORNAMENTAL IRON WORKER APPRENTICE angiogram 7. Mynx closure He is very [...] Anticipated Discharge Disposition: inpatient rehabilitation facility Pager: [phone] LAWRENCE GONZALEZ, PT 08/11/2017 Physical Therapy Rehabilitation [...] to sit/sit to supine Bed Mobility Goal, [place] Level independent Goal: Gait Training Goal Stand Alone Therapy Goal Outcome: Ongoing (Interventions Implemented as Appropriate) 08/11/17 1310 Gait Training Goal Gait Training Goal, Date Established 08/11/17 Gait Training Goal, Time to Achieve 5 - 7 days Gait Training Goal, [place] Level conditional independence Gait Training Goal, Assist [...] 7 days Transfer Training Goal, Activity Type twx-rn-plcby/cvksd-bo-zrs Transfer Train Goal, [place] Level conditional independence Plan of Care - [...] call cabello within reach, Hourly rounding by RN/FRAME STRAIGHTENER. Bed alarm / Chair alarm. ? Patient-specific [...] 04/05/2013 Hospitalizations Within the Past 30 Days: [facility] 07/20/2017 Anticipated Length Of Stay (If known): Expected Length of Hospitalization: 5-7 days2-3 days Current Decision-Making Capacity: Alert and oriented x 4 Advance Care Planning: on file Kisha Hoang [facility] [phone] Current Coping/Education/Information Needs: pt and spouse state [...] Health/Prescription Coverage: Primary Insurance: MEDICARE Secondary Insurance: [employer] [place] Prescription Coverage: See above Preferred Pharmacy: [email or web address] Other: N/A Primary Care Provider: Lovely Vicente MD [phone] Patient/Caregiver Goals of Treatment: Patient plans to [...] of care planning. Kaitlin Saha RN Pager: [phone] Plan of Care - Melba Jaarmillo RN - 08/09/2017 4:08 AM EST Problem: [...] Surveillance: Bed locked in low position, call cabelol within reach, purposeful hourly rounding, clutter free environment, bed/chair alarm on, family at bedside Patient-specific fall prevention interventions for sensory deficits provided: N/A CPG GOAL OUTCOME EVALUATION: Continue care plan as documented. Plan of Care - Melba Jaramillo RN - 08/08/2017 5:06 AM EST Problem: Patient Care Overview Goal: Plan of Care Review 08/08/17 6584 Coping/Psychosocial Plan Of Care Reviewed With patient [...] call cabello within reach, Hourly rounding by RN/FRAME STRAIGHTENER. Bed alarm / Chair alarm. Patient-specific fall [...] at bedside and MD TEAM Carrying pager [phone] contacted (via Radio page) and notified of [...] Zulma Dolan MD [facility] [place], [place] [address] (Wo rk) 05/28/2022 Laboratory Appointment Lab 05/28/2022 Office Visit Cardiology Zulma Dolan MD [facility] [place] [address] Liz Poole PA [facility] [place]iology [place] [address] 06/10/2022 Office Visit Dermatology Laura Scherer MD [facility] DR TEJA [place], [place] [address] (Wo rk) documented as of [...] 160 65 - 199 [place] mg/dL [facility] LABORATORY Comment: Supplemental ranges: <140 [...] [place] [address] (ABNORMAL) Differential, Automated (08/16/2017 5:08 AM EST) [facility] Method Time Signature Neutrophils % 73.9 % [facility] LABORATORY Neutr Abs (ANC) 5.37 1.70 - [facility] 6.10 [facility] x10(3)/[facility] LABORATORY Lymphocytes % 10.1 % [facility] LABORATORY Lymphocytes Abs 0.7 (L) 0.9 - 3.2 [facility] x10(3)/[facility] LABORATORY Monocytes % 10.1 % [facility] LABORATORY Monocyte Abs 0.7 0.3 - 0.9 [facility] x10(3)/[facility] LABORATORY Eosinophils % 5.1 % [facility] LABORATORY Eosinophils Abs 0.4 0.0 - 0.4 [facility] x10(3)/[facility] LABORATORY Basophils % 0.4 % [facility] LABORATORY Basophils Abs 0.0 0.0 - 0.1 [facility] x10(3)/[facility] [...] Gran Abs 0.03 0.00 - 0.04 x10(3)/[facility] Y [facility] LABORATORY Specimen Anatomical Collection Method Collection Time Receive d Time (Source) Location / / Volume Laterality Blood specimen 08/16/2017 5:08 AM 018 5:20 (specimen) EST AM EST Resulting Agency Comment Spec In Lab Yonathan Smith MD HEMATOLOGY ORDERABLES Performing Organization Address City/State/ZIP [place] [address] (ABNORMAL) Hemogram (08/16/2017 5:08 AM EST) Analysis Performed At Patho logist Time Signature WBC 7.3 4.0 - 9.5 [place] x10(3)/[facility] LABORATORY RBC 3.36 (L) 4.58 - [place] 5.54 [facility] x10(6)/[facility] LABORATORY Hemoglobin 9.7 (L) 13.7 - [facility] gm/dL [facility] LABORATORY Hematocrit 30.3 (L) 40.5 - [place] 48.5 % [facility] LABORATORY MCV 90.2 82.9 - [facility] RYAN 93.1 [facility] LABORATORY MCH 28.9 27.5 - [place] 32.[address] [facility] LABORATORY MCHC 32.0 32.0 - [place] 35.7 gm/dL [facility] LABORATORY Platelets 282 145 - 357 [facility] LABORATORY RDWSD 53.9 (H) 36.0 - [place] 45.0 [facility] LABORATORY RDWCV 16.5 (H) 11.4 - [place] 13.8 % [facility] LABORATORY MPV 9.0 7.6 - 12.9 [place] [facility] LABORATORY nRBC % Auto 0.0 % [facility] LABORATORY nRBC Abs Auto 0.000 0.000 - [place] 0.000 [facility] x10(3)/[facility] LABORATORY Specimen Anatomical Collection Method Collection Time Receive d Time (Source) Location / / Volume Laterality Blood specimen 08/16/2017 5:08 AM 018 5:20 (specimen) EST AM EST Resulting Agency Comment Spec In Lab Yonathan Smith MD HEMATOLOGY ORDERABLES Performing Organization Address City/State/ZIP Code Phon e Number [place] [id number] (ABNORMAL) Basic Metabolic Panel (non-fasting) (08/16/2017 5:08 AM EST) P athologist Signature Glucose Lvl 141 65 - 199 [facility] mg/dL [facility] [...] or in patients with acute kidney failure. [email or web address] [email or web address] Specimen Anatomical Collection Method Collection Time Receive d Time (Source) Location / / Volume Laterality Blood specimen 08/16/2017 5:08 AM 018 5:20 (specimen) EST AM EST Resulting Agency Comment Spec In Lab Yonathan Smith MD CHEMISTRY ORDERABLES Performing Organization Address City/State/[place]IP [place] [address] (ABNORMAL) Prothrombin Time (08/16/2017 [...] [facility]/ZIP Code Phon e Number [address] POCT Glucose (08/16/2017 4:09 AM EST) athologist Signature POC Glucose 147 65 - 199 [facility] LABORATORY Comment: Supplemental ranges: <140 [...] [facility]/ZIP Code Phon e Number [address] POCT Glucose (08/15/2017 11:56 PM EST) athologist Signature POC Glucose 176 65 - 199 [facility] LABORATORY Comment: Supplemental ranges: <140 [...] [facility]/ZIP Code Phon e Number [address] POCT Glucose (08/15/2017 8:05 PM EST) athologist Signature POC Glucose 136 65 - 199 [place] [facility] mg/dL [facility] LABORATORY Comment: Supplemental ranges: <140 mg/dL before meals <180 mg/dL all other times of the day Specimen Anatomical Collection Method Collection Time Receive d Time (Source) Location / / Volume Laterality Blood specimen 08/15/2017 8:05 PM 018 8:05 (specimen) EST PM EST Yonathan Smith MD POINT OF CARE TEST ORDERABLE S Performing Organization Address City/State/[place] [address] (ABNORMAL) POCT Glucose (08/15/2017 4:50 PM EST) athologist Signature POC Glucose 232 (H) 65 - 199 [facility] LABORATORY Comment: Supplemental ranges: <140 mg/dL before meals <180 mg/dL all other times of the day Specimen Anatomical Collection Method Collection Time Receive d Time (Source) Location / / Volume Laterality Blood specimen 08/15/2017 4:50 PM 018 4:50 (specimen) EST PM EST Yonathan Smith MD POINT OF CARE TEST ORDERABLE S Performing Organization Address City/State/[place] [address] POCT Glucose (08/15/2017 12:04 PM EST) athologist Signature POC Glucose 135 65 - 199 [place] [facility] mg/dL [facility] LABORATORY Comment: Supplemental ranges: <140 mg/dL before meals <180 mg/dL all other times of the day Specimen Anatomical Collection Method Collection Time Receive d Time (Source) Location / / Volume Laterality Blood specimen 08/15/2017 12:04 8 (specimen) PM EST 12:04 PM EST Yonathan Smith MD POINT OF CARE TEST ORDERABLE S Performing Organization Address City/State/[place] [address] POCT Glucose (08/15/2017 7:36 AM EST) P athologist Signature POC Glucose 124 65 - 199 [facility] mg/dL [facility] LABORATORY Comment: Supplemental ranges: <140 [...] [place] [address] (ABNORMAL) Differential, Automated (08/15/2017 6:22 AM EST) Patholo gist Method Time Signature Neutrophils % 76.1 % [facility] LABORATORY Neutr Abs (ANC) 6.62 (H) 1.70 - [facility] 6.10 [facility] x10(3)/[facility] L LABORATORY Lymphocytes % 9.3 % [facility] LABORATORY Lymphocytes Abs 0.8 (L) 0.9 - 3.2 [facility] x10(3)/[facility] LABORATORY Monocytes % 9.4 % [facility] LABORATORY Monocyte Abs 0.8 0.3 - 0.9 [facility] x10(3)/[facility] LABORATORY Eosinophils % 4.0 % [facility] LABORATORY Eosinophils Abs 0.4 0.0 - 0.4 [facility] x10(3)/[facility] LABORATORY Basophils % 0.6 % [facility] LABORATORY Basophils Abs 0.0 0.0 - 0.1 [facility] x10(3)/[facility] LABORATORY Immature Gran [...] [place] [address] (ABNORMAL) Hemogram (08/15/2017 6:22 AM EST) Analysis Performed At Patho logist Time Signature WBC 8.7 4.0 - 9.5 [facility] x10(3)/[facility] LABORATORY RBC 3.21 (L) 4.58 - [facility] 5.54 [facility] x10(6)/[facility] LABORATORY Hemoglobin 9.1 (L) 13.7 - [facility] 16.5 gm/dL [facility] LABORATORY Hematocrit 29.0 (L) 40.5 - [facility] 48.5 % [facility] LABORATORY MCV 90.3 82.9 - [facility] 93.1 [facility] LABORATORY MCH 28.3 27.5 - [facility] 32.[address] [facility] LABORATORY MCHC 31.4 (L) 32.0 - [facility] 35.7 gm/dL [facility] LABORATORY Platelets 254 145 - 357 [facility] x10(3)/[facility] LABORATORY RDWSD 53.9 (H) 36.0 - [facility] R[facility] 45.0 [facility] LABORATORY RDWCV 16.3 (H) 11.4 - [facility] 13.8 % [facility] LABORATORY MPV 8.8 7.6 - 12.9 [facility] LABORATORY nRBC % Auto 0.0 % [facility] LABORATORY nRBC Abs Auto 0.000 0.000 - [facility] 0.000 [facility] x10(3)/[facility] LABORATORY Specimen Anatomical Collection Method Collection Time Receive d Time (Source) Location / / Volume Laterality Blood specimen 08/15/2017 6:22 AM 018 6:33 (specimen) EST AM EST Resulting Agency Comment Spec In Lab Yonathan Smith MD HEMATOLOGY ORDERABLES Performing Organization Address City/State/ZIP [place] [address] (ABNORMAL) Basic Metabolic Panel (non-fasting) (08/15/2017 6:22 AM EST) P athologist Signature Glucose Lvl 118 65 - 199 [facility] mg/dL [facility] [...] or in patients with acute kidney failure. [email or web address] [email or web address] Specimen Anatomical Collection Method Collection Time Receive d Time (Source) Location / / Volume Laterality Blood specimen 08/15/2017 6:22 AM 018 6:33 (specimen) EST AM EST Resulting Agency Comment Spec In Lab Yonathan Smith MD CHEMISTRY ORDERABLES Performing Organization Address City/State/[place] [address] (ABNORMAL) Prothrombin Time (08/15/2017 [...] [facility]/[place] [address] POCT Glucose (08/15/2017 4:33 AM EST) athologist Signature POC Glucose 164 65 - 199 [facility] LABORATORY Comment: Supplemental ranges: <140 mg/dL before meals <180 mg/dL all other times of the day Specimen Anatomical Collection Method Collection Time Receive d Time (Source) Location / / Volume Laterality Blood specimen 08/15/2017 4:33 AM 018 4:33 (specimen) EST AM EST Yonathan Smith MD POINT OF CARE TEST ORDERABLE S Performing Organization Address City/State/[place] [address] POCT Glucose (08/15/2017 12:12 AM EST) athologist Signature POC Glucose 89 65 - 199 [facility] LABORATORY Comment: Supplemental ranges: <140 mg/dL before meals <180 mg/dL all other times of the day Specimen Anatomical Collection Method Collection Time Receive d Time (Source) Location / / Volume Laterality Blood specimen 08/15/2017 12:12 8 (specimen) AM EST 12:12 AM EST Yonathan Smith MD POINT OF CARE TEST ORDERABLE S Performing Organization Address City/State/[place] [address] (ABNORMAL) POCT Glucose (08/14/2017 8:07 PM EST) athologist Signature POC Glucose 204 (H) 65 - 199 [facility] mg/dL [facility] LABORATORY Comment: Supplemental ranges: <140 mg/dL before meals <180 mg/dL all other times of the day Specimen Anatomical Collection Method Collection Time Receive d Time (Source) Location / / Volume Laterality Blood specimen 08/14/2017 8:07 PM 018 8:07 (specimen) EST PM EST Yonathan Smith MD POINT OF CARE TEST ORDERABLE S Performing Organization Address City/State/[place] [address] POCT Glucose (08/14/2017 5:11 PM EST) athologist Signature POC Glucose 174 65 - 199 [facility] mg/dL [facility] LABORATORY Comment: Supplemental ranges: <140 mg/dL before meals <180 mg/dL all other times of the day Specimen Anatomical Collection Method Collection Time Receive d Time (Source) Location / / Volume Laterality Blood specimen 08/14/2017 5:11 PM 018 5:11 (specimen) EST PM EST Yonathan Smith MD POINT OF CARE TEST ORDERABLE S Performing Organization Address City/State/[place] [address] POCT Glucose (08/14/2017 12:10 PM EST) athologist Signature POC Glucose 141 65 - 199 [facility] mg/dL [facility] LABORATORY Comment: Supplemental ranges: <140 mg/dL before meals <180 mg/dL all other times of the day Specimen Anatomical Collection Method Collection Time Receive d Time (Source) Location / / Volume Laterality Blood specimen 08/14/2017 12:10 8 (specimen) PM EST 12:10 PM EST Yonathan Smith MD POINT OF CARE TEST ORDERABLE S Performing Organization Address City/State/[place] [address] POCT Glucose (08/14/2017 8:07 AM EST) P athologist Signature POC Glucose 158 65 - 199 [facility] LABORATORY Comment: Supplemental ranges: <140 mg/dL before meals <180 mg/dL all other times of the day Specimen Anatomical Collection Method Collection Time Receive d Time (Source) Location / / Volume Laterality Blood specimen 08/14/2017 8:07 AM 018 8:07 (specimen) EST AM EST Yonathan Smith MD POINT OF CARE TEST ORDERABLE S Performing Organization Address City/State/[place] [address] (ABNORMAL) Differential, Automated (08/14/2017 4:52 AM EST) Patholo gist Method Time Signature Neutrophils % 78.6 % [facility] LABORATORY Neutr Abs (ANC) 7.70 (H) 1.70 - [facility] 6.10 [facility] x10(3)/[facility] L LABORATORY Lymphocytes % 7.8 % [facility] LABORATORY Lymphocytes Abs 0.8 (L) 0.9 - 3.2 [facility] x10(3)/[facility] LABORATORY Monocytes % 8.8 % [facility] LABORATORY Monocyte Abs 0.9 0.3 - 0.9 [facility] x10(3)/[facility] LABORATORY Eosinophils % 4.0 % [facility] LABORATORY Eosinophils Abs 0.4 0.0 - 0.4 [facility] x10(3)/[facility] LABORATORY Basophils % 0.5 % [facility] LABORATORY Basophils Abs 0.0 0.0 - 0.1 [facility] x10(3)/[facility] LABORATORY Immature Gran % 0.30 % [facility] [...] Melisa Gran Abs 0.03 0.00 - 0.04 x10(3)/[facility] LABORATORY Specimen Anatomical Collection Method Collection Time Receive d Time (Source) Location / / Volume Laterality Blood specimen 08/14/2017 4:52 AM 018 5:08 (specimen) EST AM EST Resulting Agency Comment Spec In Lab Yonathan Smith MD HEMATOLOGY ORDERABLES Performing Organization Address City/State/ZIP [place] [address] (ABNORMAL) Hemogram (08/14/2017 4:52 AM EST) Analysis Performed At Patho logist Time Signature WBC 9.8 (H) 4.0 - 9.5 [facility] x10(3)/[facility] LABORATORY RBC 3.32 (L) 4.58 - [facility] 5.54 [facility] x10(6)/[facility] LABORATORY Hemoglobin 9.5 (L) 13.7 - [facility] 16.5 gm/dL [facility] LABORATORY Hematocrit 30.3 (L) 40.5 - [facility] 48.5 % [facility] LABORATORY MCV 91.3 82.9 - [facility] 93.1 [facility] LABORATORY MCH 28.6 27.5 - [facility] 32.[address] [facility] LABORATORY MCHC 31.4 (L) 32.0 - [facility] 35.7 gm/dL [facility] LABORATORY Platelets 263 145 - 357 [facility] x10(3)/[facility] LABORATORY RDWSD 54.8 (H) 36.0 - [facility] 45.0 [facility] LABORATORY RDWCV 16.5 (H) 11.4 - [facility] 13.8 % [facility] LABORATORY MPV 9.1 7.6 - 12.9 [facility] LABORATORY nRBC % Auto 0.0 % [facility] LABORATORY nRBC Abs Auto 0.000 0.000 - [facility] 0.000 [facility] x10(3)/[facility] LABORATORY Specimen Anatomical Collection Method Collection Time Receive d Time (Source) Location / / Volume Laterality Blood specimen 08/14/2017 4:52 AM 018 5:08 (specimen) EST AM EST Resulting Agency Comment Spec In Lab Yonathan Smith MD HEMATOLOGY ORDERABLES Performing Organization Address City/State/ZIP [place] [address] (ABNORMAL) Prothrombin Time (08/14/2017 [...] [place] [address] (ABNORMAL) Basic Metabolic Panel (non-fasting) (08/14/2017 4:52 AM EST) P athologist Signature Glucose Lvl 135 65 - 199 [facility] mg/dL [facility] [...] or in patients with acute kidney failure. [email or web address] [email or web address] Specimen Anatomical Collection Method Collection Time Receive d Time (Source) Location / / Volume Laterality Blood specimen 08/14/2017 4:52 AM 018 5:08 (specimen) EST AM EST Resulting Agency Comment Spec In Lab Yonathan Smith MD CHEMISTRY ORDERABLES Performing Organization Address City/State/ZIP [place] [address] POCT Glucose (08/14/2017 3:56 AM EST) P athologist Signature POC Glucose 135 65 - 199 [facility] mg/dL [facility] LABORATORY Comment: Supplemental ranges: <140 mg/dL before meals <180 mg/dL all other times of the day Specimen Anatomical Collection Method Collection Time Receive d Time (Source) Location / / Volume Laterality Blood specimen 08/14/2017 3:56 AM 018 3:56 (specimen) EST AM EST Yonathan Smith MD POINT OF CARE TEST ORDERABLE S Performing Organization Address City/State/ZIP Code Phon e Number [address] POCT Glucose (08/13/2017 11:13 PM EST) athologist Signature POC Glucose 118 65 - 199 [facility] mg/dL [facility] LABORATORY Comment: Supplemental ranges: <140 [...] [facility]/[place] [address] (ABNORMAL) POCT Glucose (08/13/2017 8:08 PM EST) athologist Signature POC Glucose 204 (H) 65 - 199 [facility] mg/dL [facility] LABORATORY Comment: Supplemental ranges: <140 mg/dL before meals <180 mg/dL all other times of the day Specimen Anatomical Collection Method Collection Time Receive d Time (Source) Location / / Volume Laterality Blood specimen 08/13/2017 8:08 PM 018 8:08 (specimen) EST PM EST Yonathan Smith MD POINT OF CARE TEST ORDERABLE S Performing Organization Address City/State/[place] [address] POCT Glucose (08/13/2017 4:02 PM EST) athologist Signature POC Glucose 145 65 - 199 [facility] mg/dL [facility] LABORATORY Comment: Supplemental ranges: <140 mg/dL before meals <180 mg/dL all other times of the day Specimen Anatomical Collection Method Collection Time Receive d Time (Source) Location / / Volume Laterality Blood specimen 08/13/2017 4:02 PM 018 4:02 (specimen) EST PM EST Yonathan Smith MD POINT OF CARE TEST ORDERABLE S Performing Organization Address City/State/[place] [address] POCT Glucose (08/13/2017 11:31 AM EST) athologist Signature POC Glucose 179 65 - 199 [facility] LABORATORY Comment: Supplemental ranges: <140 [...] [facility]/[place] [address] (ABNORMAL) POCT Glucose (08/13/2017 10:16 AM EST) athologist Signature POC Glucose 211 (H) 65 - 199 [facility]dL [facility] LABORATORY Comment: Supplemental ranges: <140 [...] [facility]/[place] [address] JULIAN, legs, multiple levels (08/13/2017 7:42 AM EST) Component Value Ref Test Analysis Performed At Patholo gist Range Method Time Signature VB Text Department: Vascular Surgery Lab VASCUBASE Report Patient: [id number] (GREGORY HOANG) CPT: 38856 ICD10: I99.8 Referring Physician: YONATHAN SMITH ?? Indications: s/p R 1,2,3 toe amps with red left foot, need n ew baseline Diabetes mellitus: yes ICD10 Diagnosis Code: I99.8 Findings: Right ?Pressure (mm Hg) ?? JULIAN ??Waveform ?TBI ?? Brachial Artery ?138 ? Dorsalis Pedis (Ankle) Arter y ?132 ? 0.94 ??[place]- Biphasic ? Posterior Tibial (Ankle) Art anila ??154 ? 1.10 ??[place]-Biphasic ? Fourth Toe ? 67 ? 0.48 [...] Signature POC Glucose 156 65 - 199 [facility] mg/dL [facility] LABORATORY Comment: Supplemental ranges: <140 mg/dL before meals <180 mg/dL all other times of the day Specimen Anatomical Collection Method Collection Time Receive d Time (Source) Location / / Volume Laterality Blood specimen 08/13/2017 7:33 AM 018 7:33 (specimen) EST AM EST Yonathan Smith MD POINT OF CARE TEST ORDERABLE S Performing Organization Address City/State/ZIP Code Phon e Number [place] [phone]OS[address] LAB[address]ORY Drive (ABNORMAL) Differential, Automated (08/13/2017 5:33 AM EST) [facility] Method Time Signature Neutrophils % 77.8 % [facility] LABORATORY Neutr Abs (ANC) 7.83 (H) 1.70 - [facility] 6.10 [facility] x10(3)/[facility] L LABORATORY Lymphocytes % 8.4 % [facility] LABORATORY Lymphocytes Abs 0.8 (L) 0.9 - 3.2 [facility] x10(3)/[facility] LABORATORY Monocytes % 8.3 % [facility] LABORATORY Monocyte Abs 0.8 0.3 - 0.9 [facility] x10(3)/[facility] LABORATORY Eosinophils % 4.6 % [facility] LABORATORY Eosinophils Abs 0.5 (H) 0.0 - 0.4 [facility] x10(3)/[facility] LABORATORY Basophils % 0.5 % [facility] LABORATORY Basophils Abs 0.0 0.0 - 0.1 [facility] x10(3)/[facility] LABORATORY Immature Gran % 0.40 % [facility] [...] [place] [address] (ABNORMAL) Hemogram (08/13/2017 5:33 AM EST) Analysis Performed At Patho logist Time Signature WBC 10.1 (H) 4.0 - 9.5 [facility] x10(3)/[facility] LABORATORY RBC 3.21 (L) 4.58 - [facility] 5.54 [facility] x10(6)/[facility] LABORATORY Hemoglobin 9.2 (L) 13.7 - [facility] gm/dL [facility] LABORATORY Hematocrit 29.6 (L) 40.5 - [facility] 48.5 % [facility] LABORATORY MCV 92.2 82.9 - [facility] 93.1 [facility] LABORATORY MCH 28.7 27.5 - [facility] 32.[address] [facility] LABORATORY MCHC 31.1 (L) 32.0 - [facility] 35.7 gm/dL [facility] LABORATORY Platelets 263 145 - 357 [facility] x10(3)/[facility] LABORATORY RDWSD 54.8 (H) 36.0 - [facility] 45.0 [facility] LABORATORY RDWCV 16.4 (H) 11.4 - [facility] 13.8 % [facility] LABORATORY MPV 9.2 7.6 - 12.9 [facility] LABORATORY nRBC % Auto 0.0 % [facility] LABORATORY nRBC Abs Auto 0.000 0.000 - [facility] 0.000 [facility] x10(3)/[facility] LABORATORY Specimen Anatomical Collection Method Collection Time Receive d Time (Source) Location / / Volume Laterality Blood specimen 08/13/2017 5:33 AM 018 6:04 (specimen) EST AM EST Resulting Agency Comment Spec In Lab Yonathan Smith MD HEMATOLOGY ORDERABLES Performing Organization Address City/State/ZIP [place] [address] (ABNORMAL) Prothrombin Time (08/13/2017 [...] [place] [address] (ABNORMAL) Basic Metabolic Panel (non-fasting) (08/13/2017 5:33 AM EST) athologist Signature Glucose Lvl 126 65 - 199 [facility] mg/dL [facility] [...] or in patients with acute kidney failure. [email or web address] [email or web address] Specimen Anatomical Collection Method Collection Time Receive d Time (Source) Location / / Volume Laterality Blood specimen 08/13/2017 5:33 AM 018 6:04 (specimen) EST AM EST Resulting Agency Comment Spec In Lab Yonathan Smith MD CHEMISTRY ORDERABLES Performing Organization Address City/[facility]/ZIP Code Phon e Number [address] POCT Glucose (08/13/2017 4:29 AM EST) athologist Signature POC Glucose 111 65 - 199 [facility] LABORATORY Comment: Supplemental ranges: <140 [...] [facility]/ZIP Code Phon e Number [address] POCT Glucose (08/12/2017 11:28 PM EST) athologist Signature POC Glucose 164 65 - 199 [facility]dL [facility] LABORATORY Comment: Supplemental ranges: <140 [...] [facility]/[place] [address] (ABNORMAL) POCT Glucose (08/12/2017 7:40 PM EST) athologist Signature POC Glucose 209 (H) 65 - 199 [facility] mg/dL [facility] LABORATORY Comment: Supplemental ranges: <140 mg/dL before meals <180 mg/dL all other times of the day Specimen Anatomical Collection Method Collection Time Receive d Time (Source) Location / / Volume Laterality Blood specimen 08/12/2017 7:40 PM 018 7:40 (specimen) EST PM EST Yonathan Smith MD POINT OF CARE TEST ORDERABLE S Performing Organization Address City/State/ZIP Code Phon e Number [address] POCT Glucose (08/12/2017 4:24 PM EST) athologist Signature POC Glucose 161 65 - 199 [facility] mg/dL [facility] LABORATORY Comment: Supplemental ranges: <140 mg/dL before meals <180 mg/dL all other times of the day Specimen Anatomical Collection Method Collection Time Receive d Time (Source) Location / / Volume Laterality Blood specimen 08/12/2017 4:24 PM 018 4:24 (specimen) EST PM EST Yonathan Smith MD POINT OF CARE TEST ORDERABLE S Performing Organization Address City/State/[place] [address] POCT Glucose (08/12/2017 12:00 PM EST) athologist Signature POC Glucose 167 65 - 199 [facility] mg/dL [facility] LABORATORY Comment: Supplemental ranges: <140 mg/dL before meals <180 mg/dL all other times of the day Specimen Anatomical Collection Method Collection Time Receive d Time (Source) Location / / Volume Laterality Blood specimen 08/12/2017 12:00 8 (specimen) PM EST 12:00 PM EST Yonathan Smith MD POINT OF CARE TEST ORDERABLE S Performing Organization Address City/State/[place] [address] POCT Glucose (08/12/2017 7:25 AM EST) P athologist Signature POC Glucose 152 65 - 199 [facility] mg/dL [facility] LABORATORY Comment: Supplemental ranges: <140 mg/dL before meals <180 mg/dL all other times of the day Specimen Anatomical Collection Method Collection Time Receive d Time (Source) Location / / Volume Laterality Blood specimen 08/12/2017 7:25 AM 018 7:25 (specimen) EST AM EST Yonathan Smith MD POINT OF CARE TEST ORDERABLE S Performing Organization Address City/State/ZIP Code Phon e Number [place] [phone]OSP[address] LAB[address] (ABNORMAL) Differential, Automated (08/12/2017 6:29 AM EST) Patholo gist Method Time Signature Neutrophils % 78.7 % [facility] LABORATORY Neutr Abs (ANC) 7.94 (H) 1.70 - [facility] 6.10 [facility] x10(3)/[facility] LABORATORY Lymphocytes % 8.8 % [facility] Lymphocytes Abs 0.9 0.9 - 3.2 [facility] x10(3)/[facility] LABORATORY Monocytes % 7.8 % [facility] Monocyte Abs 0.8 0.3 - 0.9 [facility] x10(3)/[facility] LABORATORY Eosinophils % 3.9 % [facility] Eosinophils Abs 0.4 0.0 - 0.4 [facility] x10(3)/[facility] LABORATORY Basophils % 0.3 % [facility] Basophils Abs 0.0 0.0 - 0.1 [facility] x10(3)/[facility] LABORATORY Immature Gran % 0.50 % [facility] [...] [place] [address] (ABNORMAL) Hemogram (08/12/2017 6:29 AM EST) Analysis Performed At Patho logist Time Signature WBC 10.1 (H) 4.0 - 9.5 [facility] x10(3)/[facility] LABORATORY RBC 3.02 (L) 4.58 - [facility]54 [facility] x10(6)/[facility] LABORATORY Hemoglobin 8.7 (L) 13.7 - [facility] 16.5 gm/dL [facility] LABORATORY Hematocrit 28.1 (L) 40.5 - [facility] 48.5 % [facility] LABORATORY MCV 93.0 82.9 - [facility] 93.1 [facility] LABORATORY MCH 28.8 27.5 - [facility] 32.[address] [facility] LABORATORY MCHC 31.0 (L) 32.0 - [facility] 35.7 gm/dL [facility] LABORATORY Platelets 223 145 - 357 [facility] x10(3)/[facility] LABORATORY RDWSD 56.1 (H) 36.0 - [facility] R[facility]AN 45.0 [facility] LABORATORY RDWCV 16.4 (H) 11.4 - [facility] 13.8 % [facility] LABORATORY MPV 9.0 7.6 - 12.9 [facility] LABORATORY nRBC % Auto 0.0 % [facility] nRBC Abs Auto 0.000 0.000 - [facility] 0.000 [facility] x10(3)/[facility] LABORATORY Specimen Anatomical Collection Method Collection Time Receive d Time (Source) Location / / Volume Laterality Blood specimen 08/12/2017 6:29 AM 018 6:38 (specimen) EST AM EST Resulting Agency Comment Spec In Lab Yonathan Smith MD HEMATOLOGY ORDERABLES Performing Organization Address City/[facility]/[place] [address] (ABNORMAL) Prothrombin Time (08/12/2017 [...] Address City/State/[place] [address] (ABNORMAL) Basic Metabolic Panel (non-fasting) (08/12/2017 6:29 AM EST) athologist Signature Glucose Lvl 151 65 - 199 [facility] mg/dL [facility] [...] or in patients with acute kidney failure. [email or web address] Specimen Anatomical Collection Method Collection Time Receive d Time (Source) Location / / Volume Laterality Blood specimen 08/12/2017 6:29 AM 018 6:38 (specimen) EST AM EST Resulting Agency Comment Spec In Lab Yonathan Smith MD CHEMISTRY ORDERABLES Performing Organization Address City/[facility]/[place] [address] POCT Glucose (08/12/2017 4:08 AM EST) athologist Signature POC Glucose 181 65 - 199 [facility] LABORATORY Comment: Supplemental ranges: <140 [...] [facility]/[place] [address] (ABNORMAL) POCT Glucose (08/12/2017 12:17 AM EST) athologist Signature POC Glucose 221 (H) 65 - 199 [facility] LABORATORY Comment: Supplemental ranges: <140 [...] [facility]/[place] [address] (ABNORMAL) POCT Glucose (08/11/2017 8:52 PM EST) athologist Signature POC Glucose 221 (H) 65 - 199 [facility] mg/dL [facility] LABORATORY Comment: Supplemental ranges: <140 [...] [facility]/[place] [address] POCT Glucose (08/11/2017 5:59 PM EST) athologist Signature POC Glucose 169 65 - 199 [facility] mg/dL [facility] LABORATORY Comment: Supplemental ranges: <140 mg/dL before meals <180 mg/dL all other times of the day Specimen Anatomical Collection Method Collection Time Receive d Time (Source) Location / / Volume Laterality Blood specimen 08/11/2017 5:59 PM 018 5:59 (specimen) EST PM EST Yonathan Smith MD POINT OF CARE TEST ORDERABLE S Performing Organization Address City/State/[place] [address] (ABNORMAL) POCT Glucose (08/11/2017 4:08 PM EST) athologist Signature POC Glucose 240 (H) 65 - 199 [facility] mg/dL [facility] LABORATORY Comment: Supplemental ranges: <140 [...] [facility]/ZIP Code Phon e Number [address] POCT Glucose (08/11/2017 12:04 PM EST) athologist Signature POC Glucose 182 65 - 199 [facility] LABORATORY Comment: Supplemental ranges: <140 [...] [facility]/ZIP Code Phon e Number [address] POCT Glucose (08/11/2017 7:31 AM EST) athologist Signature POC Glucose 156 65 - 199 [facility] LABORATORY Comment: Supplemental ranges: <140 [...] [facility]/ZIP Code Phon e Number [address] (ABNORMAL) Differential, Automated (08/11/2017 6:16 AM EST) [facility] Method Time Signature Neutrophils % 83.7 % [facility] LABORATORY Neutr Abs (ANC) 10.76 (H) 1.70 - [facility] 6.10 [facility] x10(3)/[facility] L LABORATORY Lymphocytes % 6.0 % [facility] LABORATORY Lymphocytes Abs 0.8 (L) 0.9 - 3.2 [facility] x10(3)/[facility] LABORATORY Monocytes % 7.5 % [facility] LABORATORY Monocyte Abs 1.0 (H) 0.3 - 0.9 [facility] x10(3)/[facility] LABORATORY Eosinophils % 2.0 % [facility] LABORATORY Eosinophils Abs 0.3 0.0 - 0.4 [facility] x10(3)/[facility] LABORATORY Basophils % 0.3 % [facility] LABORATORY Basophils Abs 0.0 0.0 - 0.1 [facility] x10(3)/[facility] LABORATORY Immature Gran % 0.50 % GRACE [...] [place] [address] (ABNORMAL) Hemogram (08/11/2017 6:16 AM EST) Analysis Performed At Patho logist Time Signature WBC 12.9 (H) 4.0 - 9.5 [facility] x10(3)/[facility] LABORATORY RBC 3.28 (L) 4.58 - [facility] 5.54 [facility] x10(6)/[facility] LABORATORY Hemoglobin 9.5 (L) 13.7 - [facility] 16.5 gm/dL [facility] LABORATORY Hematocrit 29.8 (L) 40.5 - [facility] 48.5 % [facility] LABORATORY MCV 90.9 82.9 - [facility] R[facility] 93.1 [facility] LABORATORY MCH 29.0 27.5 - [facility] 32.[address] [facility] LABORATORY MCHC 31.9 (L) 32.0 - [facility] 35.7 gm/dL [facility] LABORATORY Platelets 236 145 - 357 [facility] x10(3)/[facility] LABORATORY RDWSD 53.5 (H) 36.0 - [facility] 45.0 [facility] LABORATORY RDWCV 16.3 (H) 11.4 - [facility] R[facility] 13.8 % [facility] LABORATORY MPV 8.8 7.6 - 12.9 [facility] LABORATORY nRBC % Auto 0.0 % [facility] LABORATORY nRBC Abs Auto 0.000 0.000 - [facility] R[facility] 0.000 [facility] x10(3)/[facility] LABORATORY Specimen Anatomical Collection Method Collection Time Receive d Time (Source) Location / / Volume Laterality Blood specimen 08/11/2017 6:16 AM 018 6:24 (specimen) EST AM EST Resulting Agency Comment Spec In Lab Yonathan Smith MD HEMATOLOGY ORDERABLES Performing Organization Address City/State/ZIP [place] [address] (ABNORMAL) Prothrombin Time (08/11/2017 [...] [place] [address] Basic Metabolic Panel (non-fasting) (08/11/2017 6:16 AM EST) P athologist Signature Glucose Lvl 139 65 - 199 [facility] mg/dL [facility] [...] or in patients with acute kidney failure. [email or web address] Specimen Anatomical Collection Method Collection Time Receive d Time (Source) Location / / Volume Laterality Blood specimen 08/11/2017 6:16 AM 018 6:24 (specimen) EST AM EST Resulting Agency Comment Spec In Lab Yonathan Smith MD CHEMISTRY ORDERABLES Performing Organization Address City/State/ZIP Code Phon e Number [address] POCT Glucose (08/11/2017 4:07 AM EST) athologist Signature POC Glucose 162 65 - 199 [facility] mg/dL [facility] LABORATORY Comment: Supplemental ranges: <140 [...] [facility]/ZIP Code Phon e Number [address] POCT Glucose (08/10/2017 11:59 PM EST) athologist Signature POC Glucose 166 65 - 199 [facility] mg/dL [facility] LABORATORY Comment: Supplemental ranges: <140 mg/dL before meals <180 mg/dL all other times of the day Specimen Anatomical Collection Method Collection Time Receive d Time (Source) Location / / Volume Laterality Blood specimen 08/10/2017 11:59 8 (specimen) PM EST 11:59 PM EST Yonathan Smith MD POINT OF CARE TEST ORDERABLE S Performing Organization Address City/State/ZIP Code Phon e Number [address] POCT Glucose (08/10/2017 8:12 PM EST) athologist Signature POC Glucose 156 65 - 199 [facility] mg/dL [facility] LABORATORY Comment: Supplemental ranges: <140 mg/dL before meals <180 mg/dL all other times of the day Specimen Anatomical Collection Method Collection Time Receive d Time (Source) Location / / Volume Laterality Blood specimen 08/10/2017 8:12 PM 018 8:12 (specimen) EST PM EST Yonathan Smith MD POINT OF CARE TEST ORDERABLE S Performing Organization Address City/State/ZIP Code Phon e Number [place] [id number]OS[address] LAB[address]ORY Drive (ABNORMAL) POCT Glucose (08/10/2017 4:42 PM EST) P athologist Signature POC Glucose 211 (H) 65 - 199 [facility] LABORATORY Comment: Supplemental ranges: <140 mg/dL before meals <180 mg/dL all other times of the day Specimen Anatomical Collection Method Collection Time Receive d Time (Source) Location / / Volume Laterality Blood specimen 08/10/2017 4:42 PM 018 4:42 (specimen) EST PM EST Yonathan Smith MD POINT OF CARE TEST ORDERABLE S Performing Organization Address City/State/ZIP Code Phon e Number [address] (ABNORMAL) Differential, Automated (08/10/2017 2:30 PM EST) Patholo gist Method Time Signature Neutrophils % 87.6 % [facility] LABORATORY Neutr Abs (ANC) 9.90 (H) 1.70 - [facility] 6.10 [facility] x10(3)/[facility] L LABORATORY Lymphocytes % 4.3 % [facility] LABORATORY Lymphocytes Abs 0.5 (L) 0.9 - 3.2 [facility] x10(3)/[facility] LABORATORY Monocytes % 6.0 % [facility] LABORATORY Monocyte Abs 0.7 0.3 - 0.9 [facility] x10(3)/[facility] LABORATORY Eosinophils % 1.1 % [facility] LABORATORY Eosinophils Abs 0.1 0.0 - 0.4 [facility] x10(3)/[facility] LABORATORY Basophils % 0.4 % [facility] LABORATORY Basophils Abs 0.0 0.0 - 0.1 [facility] x10(3)/[facility] LABORATORY Immature Gran [...] [place] [address] (ABNORMAL) Hemogram (08/10/2017 2:30 PM EST) Analysis Performed At Patho logist Time Signature WBC 11.3 (H) 4.0 - 9.5 [facility] x10(3)/[facility] LABORATORY RBC 3.13 (L) 4.58 - [facility] 5.54 [facility] x10(6)/[facility] LABORATORY Hemoglobin 8.9 (L) 13.7 - [facility] 16.[facility] gm/dL [facility] LABORATORY Hematocrit 28.4 (L) 40.5 - [facility] 48.5 % [facility] LABORATORY MCV 90.7 82.9 - [facility] 93.1 [facility] LABORATORY MCH 28.4 27.5 - [facility] 32.[address] [facility] LABORATORY MCHC 31.3 (L) 32.0 - [facility] 35.7 gm/dL [facility] LABORATORY Platelets 213 145 - 357 [facility] x10(3)/[facility] LABORATORY RDWSD 53.7 (H) 36.0 - [facility] R[facility] 45.0 [facility] LABORATORY RDWCV 16.4 (H) 11.4 - [facility] 13.8 % [facility] LABORATORY MPV 8.9 7.6 - 12.9 [facility] LABORATORY nRBC % Auto 0.0 % [facility] LABORATORY nRBC Abs Auto 0.000 0.000 - [facility] [employer] 0.000 [facility] x10(3)/[facility] LABORATORY Specimen Anatomical Collection Method Collection Time Receive d Time (Source) Location / / Volume Laterality Blood specimen 08/10/2017 2:30 PM 018 2:48 (specimen) EST PM EST Resulting Agency Comment Spec In Lab Yonathan Smith MD HEMATOLOGY ORDERABLES Performing Organization Address City/[facility]/ZIP Code Phon e Number [address] (ABNORMAL) POCT Glucose (08/10/2017 1:50 PM EST) athologist Signature POC Glucose 243 (H) 65 - 199 [facility] LABORATORY Comment: Supplemental ranges: <140 [...] [facility]/ZIP Code Phon e Number [address] POCT Glucose (08/10/2017 11:21 AM EST) athologist Signature POC Glucose 156 65 - 199 [facility] LABORATORY Comment: Supplemental ranges: <140 [...] [facility]/ZIP Code Phon e Number [address] (ABNORMAL) Differential, Automated (08/10/2017 10:28 AM EST) [facility] Method Time Signature Neutrophils % 85.3 % [facility] LABORATORY Neutr Abs (ANC) 9.43 (H) 1.70 - [facility] 6.10 [facility] x10(3)/[facility] L LABORATORY Lymphocytes % 5.5 % [facility] LABORATORY Lymphocytes Abs 0.6 (L) 0.9 - 3.2 [facility] x10(3)/[facility] LABORATORY Monocytes % 5.9 % [facility] LABORATORY Monocyte Abs 0.6 0.3 - 0.9 [facility] x10(3)/[facility] LABORATORY Eosinophils % 2.1 % [facility] LABORATORY Eosinophils Abs 0.2 0.0 - 0.4 [facility] x10(3)/[facility] LABORATORY Basophils % 0.4 % [facility] LABORATORY Basophils Abs 0.0 0.0 - 0.1 [facility] x10(3)/[facility] LABORATORY Immature Gran % 0.80 % GR[facility] [...] [place] [address] (ABNORMAL) Hemogram (08/10/2017 10:28 AM EST) Analysis Performed At Patho logist Time Signature WBC 11.0 (H) 4.0 - 9.5 [facility] x10(3)/[facility] LABORATORY RBC 3.02 (L) 4.58 - [facility] 5.54 [facility] x10(6)/[facility] LABORATORY Hemoglobin 8.8 (L) 13.7 - [facility] 16.5 gm/dL [facility] LABORATORY Hematocrit 28.1 (L) 40.5 - [facility] 48.5 % [facility] LABORATORY MCV 93.0 82.9 - [facility] 93.1 [facility] LABORATORY MCH 29.1 27.5 - [facility] 32.[address] [facility] LABORATORY MCHC 31.3 (L) 32.0 - [facility] 35.7 gm/dL [facility] LABORATORY Platelets 207 145 - 357 [facility] x10(3)/[facility] LABORATORY RDWSD 55.3 (H) 36.0 - [facility] 45.0 [facility] LABORATORY RDWCV 16.4 (H) 11.4 - [facility] 13.8 % [facility] LABORATORY MPV 9.0 7.6 - 12.9 [facility] LABORATORY nRBC % Auto 0.0 % [facility] nRBC Abs Auto 0.000 0.000 - [facility] 0.000 [facility] x10(3)/[facility] LABORATORY Specimen Anatomical Collection Method Collection Time Receive d Time (Source) Location / / Volume Laterality Blood specimen 08/10/2017 10:28 8 (specimen) AM EST 10:35 AM EST Resulting Agency Comment Spec In Lab Yonathan Smith MD HEMATOLOGY ORDERABLES Performing Organization Address City/State/ZIP [place] [address] VS Angiogram/intervention (vascular) (08/10/2017 [...] 2.5x80 5. Completion RLE angiogram 6. L [employer]RNAMENTAL [employer] WORKER APPRENTICE angiogram 7. 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 - L [employer]RNAMENTAL [employer] WORKER APPRENTICE angriogram demonstrated: High fe moral bifurcation over the proximal half of the femoral head. L [employer]RNAMENTAL [employer] WORKER APPRENTICE access in the distal L ORNAMENTAL IRON WORKER APPRENTICE. - Closure device: Mynx Technical Procedure: ?The [...] for a 45cm 5F Destination. V18 and Camas a nd QuickCross catheters were used to [...] bifurcation. Access appeared in the distal R [employer]RNAMENTAL [employer]ON WORKER APPRENTICE. Closure and sheath removal was performed with [...] 2.5x80 5. Completion RLE angiogram 6. L [employer]RNAMENTAL [employer]ON WORKER APPRENTICE angiogram 7. 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 - L [employer]RNAMENTAL [employer] WORKER APPRENTICE angriogram demonstrated: High fe moral bifurcation over the proximal half of the femoral head. L ORNAMENTAL [employer] WORKER APPRENTICE access in the distal L ORNAMENTAL IRON WORKER APPRENTICE. - Closure device: Mynx Technical Procedure: The [...] for a 45cm 5F Destination. V18 and Camas a nd QuickCross catheters were used to [...] bifurcation. Access appeared in the distal R ORNAMENTAL [employer]ON WORKER APPRENTICE. Closure and sheath removal was performed with [...] Differential, Automated (08/10/2017 5:50 AM EST) [facility] Method Time Signature Neutrophils % 80.1 % [facility] LABORATORY Neutr Abs (ANC) 9.01 (H) 1.70 - [facility] 6.10 [facility] x10(3)/[facility] LABORATORY Lymphocytes % 8.8 % [facility] LABORATORY Lymphocytes Abs 1.0 0.9 - 3.2 [facility] x10(3)/[facility] LABORATORY Monocytes % 8.3 % [facility] LABORATORY Monocyte Abs 0.9 0.3 - 0.9 [facility] x10(3)/[facility] LABORATORY Eosinophils % 2.0 % [facility] LABORATORY Eosinophils Abs 0.2 0.0 - 0.4 [facility] x10(3)/[facility] LABORATORY Basophils % 0.4 % [facility] LABORATORY Basophils Abs 0.0 0.0 - 0.1 [facility] x10(3)/[facility] LABORATORY Immature Gran % 0.40 % GRACE [...] Address City/State/[place] [address] (ABNORMAL) Hemogram (08/10/2017 5:50 AM EST) Analysis Performed At Patho logist Time Signature WBC 11.3 (H) 4.0 - 9.5 [facility] x10(3)/[facility] LABORATORY RBC 3.15 (L) 4.58 - [facility] 5.54 [facility] x10(6)/[facility] LABORATORY Hemoglobin 8.9 (L) 13.7 - [facility] gm/dL [facility] LABORATORY Hematocrit 29.0 (L) 40.5 - [facility] RYAN 48.5 % [facility] LABORATORY MCV 92.1 82.9 - [facility] 93.1 [facility] LABORATORY MCH 28.3 27.5 - [facility] 32.[address] [facility] LABORATORY MCHC 30.7 (L) 32.0 - [facility] 35.7 gm/dL [facility] LABORATORY Platelets 231 145 - 357 [facility] RDWSD 53.9 (H) 36.0 - [facility] R[facility]AN 45.0 [facility] LABORATORY RDWCV 16.2 (H) 11.4 - [facility] 13.8 % [facility] LABORATORY MPV 8.7 7.6 - 12.9 [facility] LABORATORY nRBC % Auto 0.0 % [facility] LABORATORY nRBC Abs Auto 0.000 0.000 - [facility] 0.000 [facility] x10(3)/[facility] LABORATORY Specimen Anatomical Collection Method Collection Time Receive d Time (Source) Location / / Volume Laterality Blood specimen 08/10/2017 5:50 AM 018 5:59 (specimen) EST AM EST Resulting Agency Comment Spec In Lab Yonathan Smith MD HEMATOLOGY ORDERABLES Performing Organization Address City/State/ZIP [place] [address] (ABNORMAL) Basic Metabolic Panel (non-fasting) (08/10/2017 5:50 AM EST) P athologist Signature Glucose Lvl 135 65 - 199 [facility] mg/dL [facility] [...] or in patients with acute kidney failure. [email or web address] Specimen Anatomical Collection Method Collection Time Receive d Time (Source) Location / / Volume Laterality Blood specimen 08/10/2017 5:50 AM 018 5:59 (specimen) EST AM EST Resulting Agency Comment Spec In Lab Yonathan Smith MD CHEMISTRY ORDERABLES Performing Organization Address [facility] [place] [address] (ABNORMAL) Prothrombin Time (08/10/2017 [...] ORDERABLES Performing Organization Address City/[facility] [place] [address] (ABNORMAL) POCT Glucose (08/10/2017 4:01 AM EST) athologist Signature POC Glucose 206 (H) 65 - 199 [facility] mg/dL [facility] LABORATORY Comment: Supplemental ranges: <140 mg/dL before meals <180 mg/dL all other times of the day Specimen Anatomical Collection Method Collection Time Receive d Time (Source) Location / / Volume Laterality Blood specimen 08/10/2017 4:01 AM 018 4:01 (specimen) EST AM EST Yonathan Smith MD POINT OF CARE TEST ORDERABLE S Performing Organization Address City/State/ZIP Code Phon e Number [address] POCT Glucose (08/10/2017 2:01 AM EST) athologist Signature POC Glucose 188 65 - 199 [facility] mg/dL [facility] LABORATORY Comment: Supplemental ranges: <140 [...] [facility]/[place] [address] [facility] (ABNORMAL) POCT Glucose (08/09/2017 11:42 PM EST) athologist Signature POC Glucose 283 (H) 65 - 199 [place]AN mg/dL [facility] LABORATORY Comment: Supplemental ranges: <140 mg/dL before meals <180 mg/dL all other times of the day Specimen Anatomical Collection Method Collection Time Receive d Time (Source) Location / / Volume Laterality Blood specimen 08/09/2017 11:42 8 (specimen) PM EST 11:42 PM EST Yonathan Smith MD POINT OF CARE TEST ORDERABLE S Performing Organization Address City/State/[place] [address] POCT Glucose (08/09/2017 8:55 PM EST) athologist Signature POC Glucose 182 65 - 199 [place] Z[place]ORYAN mg/dL [facility] LABORATORY Comment: Supplemental ranges: <140 [...] [facility]/[place] [address] (ABNORMAL) APTT (08/09/2017 6:42 [...] [facility]/[place] [address] POCT Glucose (08/09/2017 4:41 PM EST) athologist Signature POC Glucose 195 65 - 199 [facility] LABORATORY Comment: Supplemental ranges: <140 [...] [facility]/[place] [address] POCT Glucose (08/09/2017 12:29 PM EST) athologist Signature POC Glucose 140 65 - 199 [facility] LABORATORY Comment: Supplemental ranges: <140 mg/dL before meals <180 mg/dL all other times of the day Specimen Anatomical Collection Method Collection Time Receive d Time (Source) Location / / Volume Laterality Blood specimen 08/09/2017 12:29 8 (specimen) PM EST 12:29 PM EST Yonathan Smith MD POINT OF CARE TEST ORDERABLE S Performing Organization Address [facility]/ZIP Code Phon e Number [address] POCT Glucose (08/09/2017 9:59 AM EST) P athologist Signature POC Glucose 135 65 - 199 [facility] mg/dL [facility] LABORATORY Comment: Supplemental ranges: <140 mg/dL before meals <180 mg/dL all other times of the day Specimen Anatomical Collection Method Collection Time Receive d Time (Source) Location / / Volume Laterality Blood specimen 08/09/2017 9:59 AM 018 9:59 (specimen) EST AM EST Yonathan Smith MD POINT OF CARE TEST ORDERABLE S Performing Organization Address [facility]/ZIP Code Phon e Number [address] Specimen to Pathology (08/09/2017 [...] [facility]/[place] [address] Surgical Pathology Report (08/09/2017 8:40 AM EST) Component Value Ref Test Analysis Performed At Patholo gist Range Method Time Signature Surgical [id number] ? Location: [facility]; [facility]; A [facility] Report The signing pathologist has (i) [...] Henrique Flower Verified: ??08/13/2017 ?Pathologist Performed at: ??-[facility] Dept. of Pathology, [place], [place] CLINICAL INFORMATION Specimen Submitted: A - [...] [place] [address] Anaerobic Culture (08/09/2017 8:30 AM EST) [facility] [employer] Method Time Signature Anaerobic No anaerobic [facility] Culture organisms [facility] LABORATORY Specimen Anatomical Collection Method Collection Time [...] [facility]/[place] [address] (ABNORMAL) Abscess/Wound Aspirate Culture (08/09/2017 8:30 AM EST) [facility] Method Time Signature Abscess/Wound Moderate mixed [facility] Aspirate bacterial [place] Culture morphotypes [facility] normal LABORATORY cutaneous leroy (A) Gram Stain Rare White Blood Cells BARBARA Few Gram Positive Cocci in pairs [place] () [facility] LABORATORY Organism Gram Positive BARBARA Cocci in pairs [place] () [facility] LABORATORY [...] [facility]/ZIP Code Phon e Number [place] [id number] POCT Glucose (08/09/2017 4:28 AM EST) P athologist Signature POC Glucose 128 65 - 199 [facility] LABORATORY Comment: Supplemental ranges: <140 mg/dL before meals <180 mg/dL all other times of the day Specimen Anatomical Collection Method Collection Time Receive d Time (Source) Location / / Volume Laterality Blood specimen 08/09/2017 4:28 AM 018 4:28 (specimen) EST AM EST Yonathan Smith MD POINT OF CARE TEST ORDERABLE S Performing Organization Address City/State/[place] [address] ABORH Recheck Status (08/09/2017 1:10 AM EST) [facility] Method Time Signature ABORH Type Completed [facility] LABORATORY Specimen Anatomical Collection Method Collection Time Receive d Time (Source) Location / / Volume Laterality Blood specimen 08/09/2017 1:10 AM 018 1:35 (specimen) EST AM EST Resulting Agency Comment Spec In Lab Yonathan Smith MD BLOOD BANK ORDERABLES Performing Organization Address City/[facility]/[place] [address] Antibody screen (08/09/2017 1:10 AM EST) [facility] Method Time Signature Ab Screen Negative [facility] LABORATORY Expires at 08/12/2017 [facility] [id number] on: [facility] LABORATORY Specimen Anatomical Collection Method Collection Time Receive d Time (Source) Location / / Volume Laterality Blood specimen 08/09/2017 1:10 AM 018 1:35 (specimen) EST AM EST Resulting Agency Comment Spec In Lab Yonathan Smith MD BLOOD BANK ORDERABLES Performing Organization Address City/[facility]/[place] [address] ABO/Rh Typing (08/09/2017 1:10 [...] [facility]/[place] [address] (ABNORMAL) APTT (08/09/2017 1:10 [...] [place] [address] (ABNORMAL) Differential, Automated (08/09/2017 1:10 AM EST) [facility] gist Method Time Signature Neutrophils % 76.2 % [facility] LABORATORY Neutr Abs (ANC) 8.59 (H) 1.70 - [facility] 6.10 [facility] x10(3)/[facility] LABORATORY Lymphocytes % 11.0 % [facility] LABORATORY Lymphocytes Abs 1.2 0.9 - 3.2 [facility] x10(3)/[facility] LABORATORY Monocytes % 8.4 % [facility] LABORATORY Monocyte Abs 1.0 (H) 0.3 - 0.9 [facility] x10(3)/[facility] LABORATORY Eosinophils % 3.5 % [facility] LABORATORY Eosinophils Abs 0.4 0.0 - 0.4 [facility] x10(3)/[facility] LABORATORY Basophils % 0.5 % [facility] LABORATORY Basophils Abs 0.1 0.0 - 0.1 [facility] x10(3)/[facility] LABORATORY Immature Gran % 0.40 % [facility] [...] [place] [address] (ABNORMAL) Hemogram (08/09/2017 1:10 AM EST) Analysis Performed At Patho logist Time Signature WBC 11.3 (H) 4.0 - 9.5 [facility] x10(3)/[facility] LABORATORY RBC 3.47 (L) 4.58 - [facility] 5.54 [facility] x10(6)/[facility] LABORATORY Hemoglobin 10.0 (L) 13.7 - [facility] 16.5 gm/dL [facility] LABORATORY Hematocrit 31.9 (L) 40.5 - [facility] 48.5 % [facility] LABORATORY MCV 91.9 82.9 - [facility] 93.1 [facility] LABORATORY MCH 28.8 27.5 - [facility] RYAN 32.[address] [facility] LABORATORY MCHC 31.3 (L) 32.0 - [facility] 35.7 gm/dL [facility] LABORATORY Platelets 234 145 - 357 [facility] x10(3)/[facility] LABORATORY RDWSD 54.0 (H) 36.0 - [facility] RYAN 45.0 [facility] LABORATORY RDWCV 16.2 (H) 11.4 - [facility] 13.8 % [facility] LABORATORY MPV 8.7 7.6 - 12.9 [facility] LABORATORY nRBC % Auto 0.0 % [facility] LABORATORY nRBC Abs Auto 0.000 0.000 - [place] RYAN 0.000 [facility] x10(3)/[facility] LABORATORY Specimen Anatomical Collection Method Collection Time Receive d Time (Source) Location / / Volume Laterality Blood specimen 08/09/2017 1:10 AM 018 1:19 (specimen) EST AM EST Resulting Agency Comment Spec In Lab Yonathan Smith MD HEMATOLOGY ORDERABLES Performing Organization Address [facility] [place] [address] (ABNORMAL) Prothrombin Time (08/09/2017 [...] Smith MD HEMATOLOGY ORDERABLES Performing Organization Address [facility] [place] [address] (ABNORMAL) Basic Metabolic Panel (non-fasting) (08/09/2017 1:10 AM EST) athologist Signature Glucose Lvl 108 65 - 199 [facility] mg/dL [facility] [...] or in patients with acute kidney failure. http://Togethera/DHnkdep [email or web address]/DHMCnkf Specimen Anatomical Collection Method Collection Time Receive d Time (Source) Location / / Volume Laterality Blood specimen 08/09/2017 1:10 AM 018 1:19 (specimen) EST AM EST Resulting Agency Comment Spec In Lab Yonathan Smith MD CHEMISTRY ORDERABLES Performing Organization Address City/State/ZIP Code Phon e Number [address] POCT Glucose (08/09/2017 12:05 AM EST) athologist Signature POC Glucose 128 65 - 199 [facility] mg/dL [facility] LABORATORY Comment: Supplemental ranges: <140 mg/dL before meals <180 mg/dL all other times of the day Specimen Anatomical Collection Method Collection Time Receive d Time (Source) Location / / Volume Laterality Blood specimen 08/09/2017 12:05 8 (specimen) AM EST 12:05 AM EST Yonathan Smith MD POINT OF CARE TEST ORDERABLE S Performing Organization Address City/State/[place] [address] (ABNORMAL) POCT Glucose (08/08/2017 7:36 PM EST) athologist Signature POC Glucose 215 (H) 65 - 199 [facility] LABORATORY Comment: Supplemental ranges: <140 [...] [facility]/[place] [address] (ABNORMAL) POCT Glucose (08/08/2017 6:23 PM EST) athologist Signature POC Glucose 216 (H) 65 - 199 [facility] mg/dL [facility] LABORATORY Comment: Supplemental ranges: <140 [...] [facility]/[place] [address] (ABNORMAL) APTT (08/08/2017 6:00 [...] [facility]/ZIP Code Ph[place] [address] POCT Glucose (08/08/2017 4:42 PM EST) athologist Signature POC Glucose 78 65 - 199 [facility] mg/dL [facility] LABORATORY Comment: Supplemental ranges: <140 mg/dL before meals <180 mg/dL all other times of the day Specimen Anatomical Collection Method Collection Time Receive d Time (Source) Location / / Volume Laterality Blood specimen 08/08/2017 4:42 PM 018 4:42 (specimen) EST PM EST Yonathan Smith MD POINT OF CARE TEST ORDERABLE S Performing Organization Address City/State/[place] [address] (ABNORMAL) POCT Glucose (08/08/2017 4:01 PM EST) athologist Signature POC Glucose 58 (L) 65 - 199 [facility] mg/dL [facility] LABORATORY Comment: Supplemental ranges: <140 mg/dL before meals <180 mg/dL all other times of the day Specimen Anatomical Collection Method Collection Time Receive d Time (Source) Location / / Volume Laterality Blood specimen 08/08/2017 4:01 PM 018 4:01 (specimen) EST PM EST Yonathan Simth MD POINT OF CARE TEST ORDERABLE S Performing Organization Address City/State/[place] [address] POCT Glucose (08/08/2017 11:51 AM EST) athologist Signature POC Glucose 90 65 - 199 [facility] mg/dL [facility] LABORATORY Comment: Supplemental ranges: <140 mg/dL before meals <180 mg/dL all other times of the day Specimen Anatomical Collection Method Collection Time Receive d Time (Source) Location / / Volume Laterality Blood specimen 08/08/2017 11:51 8 (specimen) AM EST 11:51 AM EST Yonathan Smith MD POINT OF CARE TEST ORDERABLE S Performing Organization Address City/State/[place] [address] (ABNORMAL) APTT (08/08/2017 10:27 [...] [facility]/ZIP Code Phon e Number [address] POCT Glucose (08/08/2017 8:02 AM EST) athologist Signature POC Glucose 178 65 - 199 [facility] mg/dL [facility] LABORATORY Comment: Supplemental ranges: <140 [...] [facility]/[place] [address] (ABNORMAL) APTT (08/08/2017 4:51 AM EST) athologist Signature PTT >160 25 - 35 [facility] (Critical) sec [facility] LABORATORY Comment: Called by: HOWARD, [...] [place] [address] (ABNORMAL) Differential, Automated (08/08/2017 4:51 AM EST) [facility] gist Method Time Signature Neutrophils % 77.9 % [facility] LABORATORY Neutr Abs (ANC) 8.17 (H) 1.70 - [facility] 6.10 [facility] x10(3)/[facility] LABORATORY Lymphocytes % 10.3 % [facility] LABORATORY Lymphocytes Abs 1.1 0.9 - 3.2 [facility] x10(3)/[facility] LABORATORY Monocytes % 7.0 % [facility] LABORATORY Monocyte Abs 0.7 0.3 - 0.9 [facility] x10(3)/[facility] LABORATORY Eosinophils % 3.6 % [facility] LABORATORY Eosinophils Abs 0.4 0.0 - 0.4 [facility] x10(3)/[facility] LABORATORY Basophils % 0.5 % [facility] LABORATORY Basophils Abs 0.0 0.0 - 0.1 [facility] x10(3)/[facility] LABORATORY Immature Gran % 0.70 % [facility] [...] Address City/State/ZIP Code Phon e Number [address] (ABNORMAL) Hemogram (08/08/2017 4:51 AM EST) Analysis Performed At Patho logist Time Signature WBC 10.5 (H) 4.0 - 9.5 [facility] x[facility](3[facility] LABORATORY RBC 3.27 (L) 4.58 - [place] 5.54 [facility] x10(6)/[facility] LABORATORY Hemoglobin 9.3 (L) 13.7 - [facility] 16.5 gm/dL [facility] LABORATORY Hematocrit 30.3 (L) 40.5 - [facility] 48.5 % [facility] LABORATORY MCV 92.7 82.9 - [facility] 93.1 [facility] LABORATORY MCH 28.4 27.5 - [place] RYAN 32.[address] [facility] LABORATORY MCHC 30.7 (L) 32.0 - [place] RYAN 35.7 gm/dL [facility] LABORATORY Platelets 252 145 - 357 [facility] x10(3)/[facility] LABORATORY RDWSD 54.6 (H) 36.0 - [place] RYAN 45.0 [facility] LABORATORY RDWCV 16.2 (H) 11.4 - [facility] RYAN 13.8 % [facility] LABORATORY MPV 9.1 7.6 - 12.9 [facility] LABORATORY nRBC % Auto 0.0 % [facility] LABORATORY nRBC Abs Auto 0.000 0.000 - [place] RYAN 0.000 [facility] x10(3)/[facility] LABORATORY Specimen Anatomical Collection Method Collection Time Receive d Time (Source) Location / / Volume Laterality Blood specimen 08/08/2017 4:51 AM 018 5:14 (specimen) EST AM EST Resulting Agency Comment Spec In Lab Yonathan Smith MD HEMATOLOGY ORDERABLES Performing Organization Address City/State/[place] [address] (ABNORMAL) Prothrombin Time (08/08/2017 [...] Address City/State/[place] [address] (ABNORMAL) Basic Metabolic Panel (non-fasting) (08/08/2017 4:51 AM EST) athologist Signature Glucose Lvl 229 (H) 65 - 199 [facility] mg/dL [facility] [...] or in patients with acute kidney failure. http://Togethera/DHnkdep [email or web address]/DHMCnkf Specimen Anatomical Collection Method Collection Time Receive d Time (Source) Location / / Volume Laterality Blood specimen 08/08/2017 4:51 AM 018 5:14 (specimen) EST AM EST Resulting Agency Comment Spec In Lab Yonathan Smith MD CHEMISTRY ORDERABLES Performing Organization Address City/[facility]/ZIP Code Phon e Number [address] POCT Glucose (08/08/2017 4:20 AM EST) athologist Signature POC Glucose 193 65 - 199 [facility] LABORATORY Comment: Supplemental ranges: <140 [...] [facility]/ZIP Code Phon e Number [address] POCT Glucose (08/07/2017 11:11 PM EST) athologist Signature POC Glucose 124 65 - 199 [facility] mg/dL [facility] LABORATORY Comment: Supplemental ranges: <140 [...] [facility]/[place] [address] (ABNORMAL) APTT (08/07/2017 10:18 [...] Address City/State/[place] [address] POCT Glucose (08/07/2017 8:10 PM EST) athologist Signature POC Glucose 140 65 - 199 [facility] mg/dL [facility] LABORATORY Comment: Supplemental ranges: <140 mg/dL before meals <180 mg/dL all other times of the day Specimen Anatomical Collection Method Collection Time Receive d Time (Source) Location / / Volume Laterality Blood specimen 08/07/2017 8:10 PM 018 8:10 (specimen) EST PM EST Yonathan Smith MD POINT OF CARE TEST ORDERABLE S Performing Organization Address City/State/[place] [address] POCT Glucose (08/07/2017 5:27 PM EST) athologist Signature POC Glucose 187 65 - 199 [facility] LABORATORY Comment: Supplemental ranges: <140 [...] [facility]/[place] [address] POCT Glucose (08/07/2017 3:29 PM EST) athologist Signature POC Glucose 86 65 - 199 [facility] mg/dL [facility] LABORATORY Comment: Supplemental ranges: <140 mg/dL before meals <180 mg/dL all other times of the day Specimen Anatomical Collection Method Collection Time Receive d Time (Source) Location / / Volume Laterality Blood specimen 08/07/2017 3:29 PM 018 3:29 (specimen) EST PM EST Yonathan Smith MD POINT OF CARE TEST ORDERABLE S Performing Organization Address [facility] [place] [address] (ABNORMAL) APTT (08/07/2017 2:50 PM EST) athologist [facility] PTT 60 (H) 25 - 35 sec [...] Performing Organization Address City/[facility]/ZIP [facility] [place] [address] (ABNORMAL) POCT Glucose (08/07/2017 2:23 PM EST) athologist Signature POC Glucose 55 (L) 65 - 199 [place] mg/dL [facility] LABORATORY Comment: Supplemental ranges: <140 mg/dL before meals <180 mg/dL all other times of the day Specimen Anatomical Collection Method Collection Time Receive d Time (Source) Location / / Volume Laterality Blood specimen 08/07/2017 2:23 PM 018 2:23 (specimen) EST PM EST Yonathan Smith MD POINT OF CARE TEST ORDERABLE S Performing Organization Address City/State/ZIP Code Phon e Number [address] POCT Glucose (08/07/2017 12:08 PM EST) P athologist Signature POC Glucose 77 65 - 199 [facility] mg/dL [facility] LABORATORY Comment: Supplemental ranges: <140 mg/dL before meals <180 mg/dL all other times of the day Specimen Anatomical Collection Method Collection Time Receive d Time (Source) Location / / Volume Laterality Blood specimen 08/07/2017 12:08 8 (specimen) PM EST 12:08 PM EST Yonathan Smith MD POINT OF CARE TEST ORDERABLE S Performing Organization Address City/State/[place] [address] (ABNORMAL) Differential, Automated (08/07/2017 7:30 AM EST) Patholo gist Method Time Signature Neutrophils % 73.8 % [facility] LABORATORY Neutr Abs (ANC) 7.17 (H) 1.70 - [facility] 6.10 [facility] x10(3)/[facility] L LABORATORY Lymphocytes % 12.2 % [facility] LABORATORY Lymphocytes Abs 1.2 0.9 - 3.2 [facility] x10(3)/[facility] LABORATORY Monocytes % 9.0 % [facility] LABORATORY Monocyte Abs 0.9 0.3 - 0.9 [facility] x10(3)/[facility] LABORATORY Eosinophils % 3.9 % [facility] LABORATORY Eosinophils Abs 0.4 0.0 - 0.4 [facility] x10(3)/[facility] LABORATORY Basophils % 0.6 % [facility] LABORATORY Basophils Abs 0.1 0.0 - 0.1 [facility] x10(3)/[facility] LABORATORY Immature Gran % 0.50 % [facility] [...] City/State/ZIP Code Phon e Number [place] [id number]OS[address] LAB[address]ORY Drive (ABNORMAL) Hemogram (08/07/2017 7:30 AM EST) Analysis Performed At Patho logist Time Signature WBC 9.7 (H) 4.0 - 9.5 [facility] x10(3)/[facility] LABORATORY RBC 3.54 (L) 4.58 - [facility] 5.54 [facility] x10(6)/[facility] LABORATORY Hemoglobin 9.9 (L) 13.7 - [facility] 16.5 gm/dL [facility] LABORATORY Hematocrit 32.3 (L) 40.5 - [facility] 48.5 % [facility] LABORATORY MCV 91.2 82.9 - [facility] 93.1 [facility] LABORATORY MCH 28.0 27.5 - [facility] 32.[address] [facility] LABORATORY MCHC 30.7 (L) 32.0 - [facility] 35.7 gm/dL [facility] LABORATORY Platelets 312 145 - 357 [facility] x10(3)/[facility] LABORATORY RDWSD 53.2 (H) 36.0 - [facility] 45.0 f[facility] LABORATORY RDWCV 16.0 (H) 11.4 - [facility] 13.8 % [facility] LABORATORY MPV 8.9 7.6 - 12.9 [facility] LABORATORY nRBC % Auto 0.0 % [facility] LABORATORY nRBC Abs Auto 0.000 0.000 - [facility] 0.000 [facility] x10(3)/[facility] LABORATORY Specimen Anatomical Collection Method Collection Time Receive d Time (Source) Location / / Volume Laterality Blood specimen 08/07/2017 7:30 AM 018 7:45 (specimen) EST AM EST Resulting Agency Comment Spec In Lab Yonathan Smith MD HEMATOLOGY ORDERABLES Performing Organization Address City/State/ZIP [place] [address] (ABNORMAL) Basic Metabolic Panel (non-fasting) (08/07/2017 7:30 AM EST) athologist Signature Glucose Lvl 80 65 - 199 [facility] mg/dL [facility] [...] or in patients with acute kidney failure. http://[email or web address] [email or web address] OK[facility] CITYnkf Specimen Anatomical Collection Method Collection Time Receive d Time (Source) Location / / Volume Laterality Blood specimen 08/07/2017 7:30 AM 018 7:45 (specimen) EST AM EST Resulting Agency Comment Spec In Lab Yonathan Smith MD CHEMISTRY ORDERABLES Performing Organization Address City/[facility]/ZIP [facility] [place] Phon e Number [address] POCT Glucose (08/07/2017 7:27 AM EST) athologist Signature POC Glucose 81 65 - 199 [facility] mg/dL [facility] LABORATORY Comment: Supplemental ranges: <140 mg/dL before meals <180 mg/dL all other times of the day Specimen Anatomical Collection Method Collection Time Receive d Time (Source) Location / / Volume Laterality Blood specimen 08/07/2017 7:27 AM 018 7:27 (specimen) EST AM EST Yonathan Smith MD POINT OF CARE TEST ORDERABLE S Performing Organization Address City/[facility] Phon e Number [address] APTT (08/07/2017 7:04 AM [...] Address City/State/[place] [address] (ABNORMAL) Prothrombin Time (08/07/2017 [...] Address City/State/[place] [address] POCT Glucose (08/07/2017 4:03 AM EST) athologist Signature POC Glucose 93 65 - 199 [facility] LABORATORY Comment: Supplemental ranges: <140 mg/dL before meals <180 mg/dL all other times of the day Specimen Anatomical Collection Method Collection Time Receive d Time (Source) Location / / Volume Laterality Blood specimen 08/07/2017 4:03 AM 018 4:03 (specimen) EST AM EST Yonathan Smith MD POINT OF CARE TEST ORDERABLE S Performing Organization Address City/State/[place] [address] POCT Glucose (08/07/2017 12:04 AM EST) athologist Signature POC Glucose 107 65 - 199 [facility] LABORATORY Comment: Supplemental ranges: <140 [...] [facility]/ZIP Code Phon e Number [address] POCT Glucose (08/06/2017 7:56 PM EST) P athologist Signature POC Glucose 178 65 - 199 [facility] mg/dL [facility] LABORATORY Comment: Supplemental ranges: <140 mg/dL before meals <180 mg/dL all other times of the day Specimen Anatomical Collection Method Collection Time Receive d Time (Source) Location / / Volume Laterality Blood specimen 08/06/2017 7:56 PM 018 7:56 (specimen) EST PM EST Yonathan Smith MD POINT OF CARE TEST ORDERABLE S Performing Organization Address City/State/ZIP Code Phon e Number [address] TcPO2 (08/06/2017 2:32 PM EST) Component Value Ref Test Analysis Performed At Patholo gist Range Method Time Signature VB Text Department: Vascular Surgery Lab VASCUBASE Report Patient: [id number] (GREGORY HOANG) CPT: [id number] ICD10: I99.8 Referring Physician: YONATHAN SMITH ?? [...] 8.6 mg 0826 (Given - Provider: Chiquis Mcgrtah RN)2011 (Given - Provider: Henrique Marks RN) 0808 (Given - Provider: Chiquis Mcgrath RN)2024 (Given - Provider: Mira Truong, RN) 0800 (Given - Provider: Doyr Truong, VAMSI) 8.6 mg, Oral, 2 TIMES [...] Truong, VAMSI)0751 (Given - Provider: Dory Truong, VASMI)1042 (Given - Provider: Dory Truong, VAMSI) 2-4 [...]
Routine documented in this encounter Care Teams Merchant Mariner Relationship Specialty Start Date End Date Lovely Vicente MD PCP - General 04/16/[address] [place] [address] [address] [place] [address] documented as of this encounter
--- OUTSIDE RECORDS SUMMARY | 2022-05-15 08:25 | XMS_ITS | Encounter Summary ---
:1945 Author Organization [facility] [place] [address] Care Team Providers Name Role Phone Lovely Vicente MD Primary Care Provider Encounter Details Date Type Department Care Team Description 08/09/2017 Clinical Support Same Day at [facility] Canceled (D-SCHED ERROR [facility] / CORRECT ION ) [place] [address] Social History Tobacco Use Types Packs/Day [...] MD [facility] [place] [address] [place], [place] [address] (Wo rk) 05/28/2022 Laboratory Appointment Lab 05/28/2022 Office Visit Cardiology Zulma Dolan MD [facility] [place] [address] Liz Poole PA [facility] [place] [address] 06/10/2022 Office Visit Dermatology Laura Scherer MD [facility] [address] [place], [place] [address] (Wo rk) documented as of this encounter Procedures Procedure Name Priority Date/Time Associated Diagnosis Comme nts MEDICAL CLAIMS MANAGER 08/09/2017 12:00 AM Resul ts for this SCAN EST procedure are i n the results section. documented in this encounter Results SCAN DOC: MEDICAL CLAIMS MANAGER (08/09/2017 12:00 AM EST) Narrative 08/09/2017 12:00 AM EST This result has an attachment that is no t available. Ordered by an unspecified provider. Scanning Provider MEDIA MGR SCAN EXT ORDR/RSLT documented in this encounter Visit Diagnoses Not on filedocumented in this encounter Care Teams Carroting Machine Operator Relationship Specialty Start Date End Date Lovely Vicente MD PCP - General 04/16/[address] [place] [address] documented as of this encounter
--- OUTSIDE RECORDS SUMMARY | 2022-05-15 08:25 | XMS_ITS | Encounter Summary ---
:1945 Author Organization [place] [address] Care Team Providers Name Role Phone Lovely Vicente MD Primary Care Provider Reason for Visit Auth/Cert Specialty Diagnoses / Procedures Referred By Contact Refer red To Contact Diagnoses Critical lower limb ischemia CELLULITIS RT FOOT Procedures EMERGENCY Referral ID Status Reason Start Date Expiration Date Visits Requ ested Visits Authorized [id number] 1 1 Encounter Details Date Type Department Care Team Description 08/09/2017 Surgery Main Operating Room Yonathan Smith AM PUTATION, Mary Hitchcock MD TRANSMETATARSAL ([facility] 12.71) [facility] [place] [address] [place] [address] [phone] Social History Tobacco Use Types Packs/Day Years [...] 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 Patient [...] Dorsalis Pedis (Ankle) Artery ?132 ? 0.94 ??Simpson-Biphasic ? Posterior Tibial (Ankle) Artery ??154 ? 1.10 ??Simpson-Biphasic ? Fourth Toe ? 67 ?0.48 ?? [...] For any problems or questions please call [phone] ZELDA Smith, bag maker Nurse Clinician For issues on weeknights after 5pm and weekends please call [phone] and ask for the Vascular Fellow collection administrator. General Instructions None Future Appointments and Orders Future Appointments Provider Department Dept Phone 08/26/2017 4:00 PM Aurelia Rivera PA Vascular Surgery at [place] [phone] 09/07/2017 3:00 PM LAB, THREE L Lab 3L [facility] [phone] 09/07/2017 4:00 PM Luz Prescott MD Endocrinology at [place] [phone] 09/09/2017 8:00 AM Barbra Soares APRN Pain Management [facility] [place] [phone] Please bring a list of your current [...] For any problems or questions please call [phone] ZELDA Smith, bag maker Nurse Clinician For issues on weeknights after 5pm and weekends please call [phone] and ask for the Vascular Fellow collection administrator. documented in this encounter Medications at [...] Note Patient Destination: [facility] ([facility]) [address] [id number] Transportation: with (at bedside) Time of Discharge: by 12 noon Level of Care: swing Patient Aware: yes Family Notified: yes Md to call report to: Yissel Quintero GAS MAKER HELPER already called RN to call report to: [phone] Shirin Wolf Office of Care Management Pager [phone] Shirin Wolf RN - 08/16/2017 10:50 AM EST [facility] has offered pt swing bed. Pt and accept bed. will transport via car. GAS MAKER HELPER Yissel Quintero aware; d/c paperwork will be completed by 12 noon. [facility] requests pt arrival by 1400 today; GAS MAKER HELPER, RN, and family aware. GAS MAKER HELPER called [facility] and was told that they prefer pt to arrive with wound vac dressing applied but clamped. GAS MAKER HELPER applied new wound vac dressing. RN has [facility] number to call report. PASSR completed; GAS MAKER HELPER paged to request provider signature in highlighted space. Indigo from [facility] notified via email that home wound vac now cancelled; [facility] has picked up from room and order cancelled. Packet started and provided to nurse staff community health. Medicare important message explained to patient, patient signed. Copy provided to patient and signature page to OCM for inclusion in pt EMR. L Radha Powers Yoselin - 08/16/2017 10:34 AM EST Office of Care Management/Roll Line Operator Patient Name: Gregory Hoang : 1945 Patient has been offered a swing bed at [facility]. The patient will be transported by private transportation. No MD to MD report necessary Please call Nursing Report to [phone], ask for safety engineer. Info to accompany patient: Narcotic Prescriptions Copies of Medication Administration Records and IV sheets for past 10 days. Plan: Roll Line Operator will be available to the patient and Wealth Management Advisor-RN and/or Acoustic Intelligence Specialist for further assistance. Patient will be discharged to: [address] [id number] Radha Powers, Roll Line Operator Mira Truong, VAMSI - 08/15/2017 10:05 PM EST [address] Flores to ask if he wanted to hold metoprolol dose. BP 95/58. OK to hold this dose Courtney Brito - 08/15/2017 3:26 PM EST Office of Care Management(OCM)/Roll Line Operator(RS)/ D/C Planning re : Patient is [...] status. 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 Vac in place. [...] referral to: [facility] PHONE: [phone] FAX: [phone] CM spoke with RS who said that [...] rehab. Await recommendations from PT. Covering pager #[phone]. 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 Sheetmetal Trades Worker Kaitlin Saha, RN Pager #[phone] Payam Rosales - 08/13/2017 2:37 PM EST [facility] Advanced Operator Encounter Note Patient Name: Gregory Hoang : [id number] MR#: [id number] Admit Date: 08/06/2017 1:41 PM Hospital Day 7 days Narrative: Visited to introduce and assess acceptance of [facility] Advanced Operator services. Pt was awake, alert, oriented and in chair and family was there. Assessment:Patient coping positively with stresses of illness/hospitalization at this time. Pt says that he is hoping to get better and his family was there. Pt says that he has family care and supportand taking one day at time. Intervention and Outcome: Provided emotional support and encouraging presence. 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 Patient requests referral to [facility]. PHONE: [phone] FAX: [phone]. And Home NPWT (Negative Pressure Wound Therapy) aka wound vac device made available to pt. Serial # confirmed. Reviewed [facility] Proof of Delivery/Assignment of Benefits Statement(POD/AOB) Form w patient or authorized agent signing on behalf of patient. Copy of POD/AOB provided to pt and other copy faxed to [employer] @ fax# [phone] Expected date of discharge: 08/12/2017. 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 Heparin gtt continues to [...] : 1945 AGE 72 y.o. Address: [address] [place] [address] [place] [address] (home) Mobile: Telephone Information: Referring Provider: No [...] hours as needed for Pain. 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 Unsuccessful draw attempt, another social media strategist will come [facility] to collect blood for PTT test. 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 Vascular resident collection administrator and will forward result to the team prior to rounds. 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 Patient [...] left blue toes with CTA showing R DRAPERY ESTIMATOR pseudoaneurysm (now thrombosed) and occluded ATs bilaterally. [...] 2.5x80 5. Completion RLE angiogram 6. L DRAPERY ESTIMATOR angiogram 7. 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 - L DRAPERY ESTIMATOR angriogram demonstrated: High femoral bifurcation over the proximal half of the femoral head. L DRAPERY ESTIMATOR access in the distal L DRAPERY ESTIMATOR. - Closure device: Mynx Technical Procedure: The [...] for a 45cm 5F Destination. V18 and [place] and QuickCross catheters were used to select [...] 5F. A stationed picture of the L DRAPERY ESTIMATOR was performed as the patient was noted to have a very high bifurcation. Access appeared in the distal R DRAPERY ESTIMATOR. Closure and sheath removal was performed with [...] PM EST 1440 report called to 5 [place] nurse Tessa RN documented in this encounter [...] sit/sit to supine -- Bed Mobility Goal, Irion Level independent -- Bed Mobility Goal, Date [...] days -- Transfer Training Goal, Activity Type loa-pl-clmvr/wvlag-ra-xbp -- Transfer Train Goal, Irion Level conditional independence -- Transfer Train Goal, [...] call cabello within reach, Hourly rounding by RN/MEDIA RELATIONS ASSOCIATE. Bed alarm / Chair alarm. Patient-specific fall [...] MD - 08/15/2017 6:28 PM EST [facility] Operative Note Patient Name: Gregory Hoang : [id number] MR#: [id number] Case Date: 08/09/2017 Surgeon: Surgeon(s) and Role: [...] 2.5x80 5. Completion RLE angiogram 6. L DRAPERY ESTIMATOR angiogram 7. Mynx closure Precautions/Restrictions: fall, sternal [...] other (see comments) (or swing bed) Pager: [phone] BASSAM ELIAS, PT 08/14/2017 Inpatient Physical Therapy [...] to Achieve by discharge Gait Training Goal, Irion Level conditional independence;set up required Gait Training [...] are: 1- [facility] PHONE: [phone] FAX: [phone] 2- [facility] ([facility]) [address] [place] [address] 3- [facility])([facility]) [address] [place] [address] I have discussed Medicare/Private Insurance [...] RS/CM on Wednesday to follow-up. Covering pager #[phone] for today. Plan of Care - Henrique [...] with additional findings of pseudoaneurysm on R DRAPERY ESTIMATOR and bilateral anterior tibial artery occlusions. Was [...] an outpatient once discharged. Have patient call [phone] to set up an appointment. Follow-up: Dermatology will sign-off for now. Please do not hesitate to contact us if you have any questions orconcerns. Impression and Recommendations discussed with primary team on 08/13/2017. Karo Henderson MD Resident in Dermatology Section of Dermatology, Department of Surgery [facility] Pager [phone] Patient seen and evaluated with staff Colors Custodian: Halima Cordero MD Section of Dermatology [facility] [...] Outcome: Ongoing (Interventions Implemented as Appropriate) 08/12/17 5546 Coping/Psychosocial Plan Of Care Reviewed With patient;spouse [...] 2.5x80 5. Completion RLE angiogram 6. L DRAPERY ESTIMATOR angiogram 7. Mynx closure Active Non-Hospital Problems [...] 2.5x80 5. Completion RLE angiogram 6. L DRAPERY ESTIMATOR angiogram 7. Mynx closure Past Medical History: [...] with 24/7 assistance and maximal services) Pager: [phone] NICHOLAS MORA, PT 08/12/2017 Physical Therapy Rehabilitation [...] sit/sit to supine -- Bed Mobility Goal, Irion Level independent -- Bed Mobility Goal, Outcome Achieved -- goal ongoing Goal: Gait Training Goal Stand Alone Therapy Goal Outcome: Ongoing (Interventions Implemented as Appropriate) 08/11/17 1310 08/12/17 1510 Gait Training Goal Gait Training Goal, Date Established 08/11/17 -- Gait Training Goal, Time to Achieve 5 - 7 days -- Gait Training Goal, Irion Level conditional independence -- Gait Training Goal, [...] days -- Transfer Training Goal, Activity Type rco-us-qzqkd/wgkqt-wz-zxw -- Transfer Train Goal, Irion Level conditional independence -- Transfer Training Goal, [...] MD - 08/11/2017 2:52 PM EST [facility] Operative Note Patient Name: Gregory Hoang : [id number] MR#: [id number] Case Date: 08/11/2017 Surgeon: Surgeon(s) and Role: [...] 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 Completion RLE angiogram 6. L DRAPERY ESTIMATOR angiogram 7. Mynx closure He is very [...] Anticipated Discharge Disposition: inpatient rehabilitation facility Pager: [phone] LAWRENCE GONZALEZ, PT 08/11/2017 Physical Therapy Rehabilitation [...] to sit/sit to supine Bed Mobility Goal, Irion Level independent Goal: Gait Training Goal Stand Alone Therapy Goal Outcome: Ongoing (Interventions Implemented as Appropriate) 08/11/17 1310 Gait Training Goal Gait Training Goal, Date Established 08/11/17 Gait Training Goal, Time to Achieve 5 - 7 days Gait Training Goal, Irion Level conditional independence Gait Training Goal, Assist [...] 7 days Transfer Training Goal, Activity Type wnm-uw-zzzqc/ndxue-qc-bng Transfer Train Goal, Irion Level conditional independence Plan of David DelloAnnetta [...] call cabello within reach, Hourly rounding by RN/MEDIA RELATIONS ASSOCIATE. Bed alarm / Chair alarm. ? Patient-specific [...] [facility] 07/20/2017 Anticipated Length Of Stay (If known): Expected Length of Hospitalization: 5-7 days2-3 days Current Decision-Making Capacity: Alert and oriented x 4 Advance Care Planning: on file Kisha Hoang [facility] [phone] Current Coping/Education/Information Needs: pt and spouse state [...] Health/Prescription Coverage: Primary Insurance: MEDICARE Secondary Insurance: [employer] [place] Prescription Coverage: See above Preferred Pharmacy: [id number] Other: N/A Primary Care Provider: Lovely Vicente MD [phone] Patient/Caregiver Goals of Treatment: Patient plans to [...] of care planning. Kaitlin Saha RN Pager: [phone] Plan of Care - Melba Jaramillo RN [...] Overview Goal: Plan of Care Review 08/08/17 0704 Coping/Psychosocial Plan Of Care Reviewed With patient [...] call cabello within reach, Hourly rounding by RN/MEDIA RELATIONS ASSOCIATE. Bed alarm / Chair alarm. Patient-specific fall prevention interventions for sensory deficits provided, if applicable: [X] Yes CPG GOAL OUTCOME EVALUATION: Goal: Fall Prevention-Safe Patient Handling Outcome: Ongoing (Interventions Implemented as Appropriate) 08/06/17 1700 08/06/17199908/07/17 5254 Positioning Body Position -- up in chair [...] at bedside and MD TEAM Carrying pager [phone] contacted (via Radio page) and notified of [...] Zulma Dolan MD [facility] [place], [place] [address] (Wo rk) 05/28/2022 Laboratory Appointment Lab 05/28/2022 Office Visit Cardiology Zulma Dolan MD [facility] [place] [address] Liz Poole PA [facility] [place] [address] 06/10/2022 Office Visit Dermatology Laura Scherer MD [facility] [address] OLOGY [place], [place] [address] (Wo rk) [...] TYPE AND SCREEN Routine 08/09/2017 1:10 ([facility]/CGP/SHANDA) [...] 160 65 - 199 [place] mg/dL [facility] Comment: [...] Organization Address City/State/[place] [address] [facility] [address] (ABNORMAL) Differential, Automated (08/16/2017 5:08 AM EST) [facility] Method Time Signature Neutrophils % 73.9 % [facility] Neutr Abs (ANC) 5.37 1.70 - [facility] 6.10 [facility] x10(3)/[facility] LABORATORY Lymphocytes % 10.1 % [facility] Lymphocytes Abs 0.7 (L) 0.9 - 3.2 [facility] x10(3)/[facility] LABORATORY Monocytes % 10.1 % [facility] Monocyte Abs 0.7 0.3 - 0.9 [facility] x10(3)/[facility] LABORATORY Eosinophils % 5.1 % [facility] Eosinophils Abs 0.4 0.0 - 0.4 [facility] x10(3)/[facility] LABORATORY Basophils % 0.4 % [facility] Basophils Abs 0.0 0.0 - 0.1 [facility] x10(3)/[facility] LABORATORY Immature [...] Gran Abs 0.03 0.00 - 0.04 x10(3)/[facility] MAR Y [facility] LABORATORY Specimen Anatomical Collection Method Collection Time Receive d Time (Source) Location / / Volume Laterality Blood specimen 08/16/2017 5:08 AM 018 5:20 (specimen) EST AM EST Resulting Agency Comment Spec In Lab Yonathan Smith MD HEMATOLOGY ORDERABLES Performing Organization Address City/State/[place] [address] [facility] [address] (ABNORMAL) Hemogram (08/16/2017 5:08 AM EST) Analysis Performed At Patho logist Time Signature WBC 7.3 4.0 - 9.5 [facility] x10(3)/[facility] LABORATORY RBC 3.36 (L) 4.58 - [facility] 5.54 [facility] x10(6)/[facility] LABORATORY Hemoglobin 9.7 (L) 13.7 - [facility] 16.[facility] gm/dL [facility] Hematocrit 30.3 (L) 40.5 - [facility] 48.5 % [facility] MCV 90.2 82.9 - [facility] 93.1 [facility] LABORATORY MCH 28.9 27.5 - [facility] 32.1 pg [facility] MCHC 32.0 32.0 - [facility] 35.7 gm/dL [facility] Platelets 282 145 - 357 [facility] x10(3)/[facility] LABORATORY RDWSD 53.9 (H) 36.0 - [facility] 45.0 [facility] LABORATORY RDWCV 16.5 (H) 11.4 - [facility] 13.8 % [facility] MPV 9.0 7.6 - 12.9 [facility] LABORATORY nRBC % Auto 0.0 % [facility] nRBC Abs Auto 0.000 0.000 - [facility] 0.000 [facility] x10(3)/[facility] LABORATORY Specimen Anatomical Collection Method Collection Time Receive d Time (Source) Location / / Volume Laterality Blood specimen 08/16/2017 5:08 AM 018 5:20 (specimen) EST AM EST Resulting Agency Comment Spec In Lab Yonathan Smith MD HEMATOLOGY ORDERABLES Performing Organization Address City/State/ZIP [place] [address] (ABNORMAL) Basic Metabolic Panel (non-fasting) (08/16/2017 5:08 AM EST) P athologist Signature Glucose Lvl 141 65 - 199 [facility] mg/dL [facility] [...] or in patients with acute kidney failure. [email or web address] Specimen Anatomical Collection Method Collection Time Receive d Time (Source) Location / / Volume Laterality Blood specimen 08/16/2017 5:08 AM 018 5:20 (specimen) EST AM EST Resulting Agency Comment Spec In Lab Yonathan Smith MD CHEMISTRY ORDERABLES Performing Organization Address City/State/[place] [address] (ABNORMAL) Prothrombin Time (08/16/2017 [...] [place]/ZIP Code Phon e Number [address] POCT Glucose (08/16/2017 4:09 AM EST) athologist Signature POC Glucose 147 65 - 199 [facility] RYAN mg/dL [facility] Comment: [...] [place]/ZIP Code Phon e Number [address] POCT Glucose (08/15/2017 11:56 PM EST) athologist Signature POC Glucose 176 65 - 199 [place] mg/dL [facility] Comment: [...] [place]/ZIP Code Phon e Number [address] POCT Glucose (08/15/2017 8:05 PM EST) athologist Signature POC Glucose 136 65 - 199 [place] mg/dL [facility] Comment: [...] Organization Address City/State/[place] [address] (ABNORMAL) POCT Glucose (08/15/2017 4:50 PM EST) athologist Signature POC Glucose 232 (H) 65 - 199 [place] mg/dL [facility] Comment: [...] Organization Address City/State/[place] [address] POCT Glucose (08/15/2017 12:04 PM EST) athologist Signature POC Glucose 135 65 - 199 [place] mg/dL [facility] Comment: [...] Organization Address City/State/[place] [address] POCT Glucose (08/15/2017 7:36 AM EST) athologist Signature POC Glucose 124 65 - 199 [place] mg/dL [facility] Comment: [...] Organization Address City/State/ZIP [place] [address] (ABNORMAL) Differential, Automated (08/15/2017 6:22 AM EST) [facility] Method Time Signature Neutrophils % 76.1 % [facility] Neutr Abs (ANC) 6.62 (H) 1.70 - [facility] 6.10 [facility] x10(3)/[facility] LABORATORY Lymphocytes % 9.3 % [facility] Lymphocytes Abs 0.8 (L) 0.9 - 3.2 [facility] x10(3)/[facility] LABORATORY Monocytes % 9.4 % [facility] Monocyte Abs 0.8 0.3 - 0.9 [facility] x10(3)/[facility] LABORATORY Eosinophils % 4.0 % [facility] Eosinophils Abs 0.4 0.0 - 0.4 [facility] x10(3)/[facility] LABORATORY Basophils % 0.6 % [facility] Basophils Abs 0.0 0.0 - 0.1 [facility] x10(3)/[facility] LABORATORY Immature Gran % 0.60 [...] [place]/ZIP Code Phon e Number [address] (ABNORMAL) Hemogram (08/15/2017 6:22 AM EST) Analysis Performed At Patho logist Time Signature WBC 8.7 4.0 - 9.5 [facility] x[facility](3[facility] LABORATORY RBC 3.21 (L) 4.58 - [place] 5.54 [facility] x10(6)/[facility] LABORATORY Hemoglobin 9.1 (L) 13.7 - [facility] 16.5 gm/dL [facility] Hematocrit 29.0 (L) 40.5 - [facility] 48.5 % [facility] MCV 90.3 82.9 - [facility] 93.1 [facility] LABORATORY MCH 28.3 27.5 - [facility] RYAN 32.1 pg [facility] MCHC 31.4 (L) 32.0 - [facility] 35.7 gm/dL [facility] Platelets 254 145 - 357 [facility] x10(3)/[facility] LABORATORY RDWSD 53.9 (H) 36.0 - [facility] RYAN 45.0 [facility] LABORATORY RDWCV 16.3 (H) 11.4 - [facility] R[facility]AN 13.8 % [facility] MPV 8.8 7.6 - 12.9 [facility] LABORATORY nRBC % Auto 0.0 % [facility]OR[facility] nRBC Abs Auto 0.000 0.000 - [facility] RYAN 0.000 [facility] x10(3)/[facility] LABORATORY Specimen Anatomical Collection Method Collection Time Receive d Time (Source) Location / / Volume Laterality Blood specimen 08/15/2017 6:22 AM 018 6:33 (specimen) EST AM EST Resulting Agency Comment Spec In Lab Yonathan Smith MD HEMATOLOGY ORDERABLES Performing Organization Address City/State/ZIP Code Phon e Number [facility] [place] [address] (ABNORMAL) Basic Metabolic Panel (non-fasting) (08/15/2017 6:22 AM EST) P athologist Signature Glucose Lvl 118 65 - 199 [facility] mg/dL [facility] LABORATORY [...] [facility] Estimated GFR >60 >=60 [facility] Comment: The reported eGFR should be multiplied b y 1.2 for patients. The MDRD is not an appropriate measure o f renal function for patients with body mass extremes or in patients with acute kidney failure. [email or web address] [email or web address] Specimen Anatomical Collection Method Collection Time Receive d Time (Source) Location / / Volume Laterality Blood specimen 08/15/2017 6:22 AM 018 6:33 (specimen) EST AM EST Resulting Agency Comment Spec In Lab Yonathan Smith MD CHEMISTRY ORDERABLES Performing Organization Address City/State/ZIP Code Phon e Number [address] (ABNORMAL) Prothrombin Time (08/15/2017 [...] Address City/State/ZIP Code Phon e Number [address] POCT Glucose (08/15/2017 4:33 AM EST) athologist Signature POC Glucose 164 65 - 199 [facility]dL [facility] Comment: [...] Address City/State/ZIP Code Phon e Number [address] POCT Glucose (08/15/2017 12:12 AM EST) athologist Signature POC Glucose 89 65 - 199 [facility]dL [facility] Comment: [...] Address City/State/ZIP Code Phon e Number [address] (ABNORMAL) POCT Glucose (08/14/2017 8:07 PM EST) athologist Signature POC Glucose 204 (H) 65 - 199 [facility] mg/dL [facility] Comment: [...] [place] [address] POCT Glucose (08/14/2017 5:11 PM EST) athologist Signature POC Glucose 174 65 - 199 [facility] mg/dL [facility] Comment: [...] Organization Address City/State/[place] [address] POCT Glucose (08/14/2017 12:10 PM EST) athologist Signature POC Glucose 141 65 - 199 [facility] mg/dL [facility] Comment: [...] Address City/State/ZIP Code Phon e Number [address] POCT Glucose (08/14/2017 8:07 AM EST) P athologist Signature POC Glucose 158 65 - 199 [facility] mg/dL [facility] LABORATORY [...] Address City/State/ZIP Code Phon e Number [address] (ABNORMAL) Differential, Automated (08/14/2017 4:52 AM EST) Patholo gist Method Time Signature Neutrophils % 78.6 % [facility] Neutr Abs (ANC) 7.70 (H) 1.70 - [facility] 6.10 [facility] x10(3)/[facility] LABORATORY Lymphocytes % 7.8 % [facility] Lymphocytes Abs 0.8 (L) 0.9 - 3.2 [facility] x10(3)/[facility] LABORATORY Monocytes % 8.8 % [facility] Monocyte Abs 0.9 0.3 - 0.9 [facility] x10(3)/[facility] LABORATORY Eosinophils % 4.0 % [facility] Eosinophils Abs 0.4 0.0 - 0.4 [facility] x10(3)/[facility] LABORATORY Basophils % 0.5 % [facility] Basophils Abs 0.0 0.0 - 0.1 [facility] x10(3)/[facility] LABORATORY Immature Gran % 0.30 [...] Gran Abs 0.03 0.00 - 0.04 x10(3)/[facility] MAR Y [facility] LABORATORY Specimen Anatomical Collection Method Collection Time Receive d Time (Source) Location / / Volume Laterality Blood specimen 08/14/2017 4:52 AM 018 5:08 (specimen) EST AM EST Resulting Agency Comment Spec In Lab Yonathan Smith MD HEMATOLOGY ORDERABLES Performing Organization Address City/State/[place] [address] (ABNORMAL) Hemogram (08/14/2017 4:52 AM EST) Analysis Performed At Patho logist Time Signature WBC 9.8 (H) 4.0 - 9.5 [facility] x10(3)/[facility] LABORATORY RBC 3.32 (L) 4.58 - [facility] 5.54 [facility] x10(6)/[facility] LABORATORY Hemoglobin 9.5 (L) 13.7 - [facility] 16.5 gm/dL [facility] Hematocrit 30.3 (L) 40.5 - [facility] 48.5 % [facility] MCV 91.3 82.9 - [facility] 93.1 [facility] LABORATORY MCH 28.6 27.5 - [facility] 32.1 pg [facility] MCHC 31.4 (L) 32.0 - [facility] 35.7 gm/dL [facility] Platelets 263 145 - 357 [facility] x10(3)/[facility] LABORATORY RDWSD 54.8 (H) 36.0 - [facility] 45.0 [facility] LABORATORY RDWCV 16.5 (H) 11.4 - [facility] 13.8 % [facility] MPV 9.1 7.6 - 12.9 [facility] LABORATORY nRBC % Auto 0.0 % [facility] nRBC Abs Auto 0.000 0.000 - [facility] 0.000 [facility] x10(3)/[facility] LABORATORY Specimen Anatomical Collection Method Collection Time Receive d Time (Source) Location / / Volume Laterality Blood specimen 08/14/2017 4:52 AM 018 5:08 (specimen) EST AM EST Resulting Agency Comment Spec In Lab Yonathan Smith MD HEMATOLOGY ORDERABLES Performing Organization Address City/[facility] [place]/[place] [address] (ABNORMAL) Prothrombin Time (08/14/2017 [...] [place] [address] (ABNORMAL) Basic Metabolic Panel (non-fasting) (08/14/2017 4:52 AM EST) athologist Signature Glucose Lvl 135 65 - 199 [facility] mg/dL [facility] LABORATORY [...] or in patients with acute kidney failure. [email or web address] [email or web address] Specimen Anatomical Collection Method Collection Time Receive d Time (Source) Location / / Volume Laterality Blood specimen 08/14/2017 4:52 AM 018 5:08 (specimen) EST AM EST Resulting Agency Comment Spec In Lab Yonathan Smith MD CHEMISTRY ORDERABLES Performing Organization Address City/[facility]/ZIP Code Phon e Number [address] POCT Glucose (08/14/2017 3:56 AM EST) P athologist Signature POC Glucose 135 65 - 199 [facility] mg/dL [facility] LABORATORY [...] [place] [address] POCT Glucose (08/13/2017 11:13 PM EST) athologist Signature POC Glucose 118 65 - 199 [facility] mg/dL [facility] Comment: [...] Organization Address City/State/[place] [address] (ABNORMAL) POCT Glucose (08/13/2017 8:08 PM EST) athologist Signature POC Glucose 204 (H) 65 - 199 [facility]/dL [facility] Comment: [...] Organization Address City/State/[place] [address] POCT Glucose (08/13/2017 4:02 PM EST) athologist Signature POC Glucose 145 65 - 199 [facility] mg/dL [facility] Comment: [...] Organization Address City/State/[place] [address] POCT Glucose (08/13/2017 11:31 AM EST) athologist Signature POC Glucose 179 65 - 199 [facility] mg/dL [facility] Comment: [...] [place] [address] (ABNORMAL) POCT Glucose (08/13/2017 10:16 AM EST) athologist Signature POC Glucose 211 (H) 65 - 199 [facility] mg/dL [facility] Comment: [...] [place] [address] JULIAN, legs, multiple levels (08/13/2017 7:42 AM EST) Component Value Ref Test Analysis [facility] Range Method Time Signature VB Text Department: Vascular Surgery Lab VASCUBASE Report Patient: [id number] (GREGORY HOANG) CPT: 09107 ICD10: I99.8 Referring Physician: YONATHAN SMITH ?? Indications: s/p R 1,2,3 toe amps with red left foot, need n ew baseline Diabetes mellitus: yes ICD10 Diagnosis Code: I99.8 Findings: Right ?Pressure (mm Hg) ?? JULIAN ??Waveform ?TBI ?? Brachial Artery ?138 ? Dorsalis Pedis (Ankle) Arter y ?132 ? 0.94 ??Simpson- Biphasic ? Posterior Tibial (Ankle) Art anila ??154 ? 1.10 ??Simpson-Biphasic ? Fourth Toe ? 67 ? 0.48 [...] POC Glucose 156 65 - 199 [facility] mg/dL [facility] LABORATORY [...] Organization Address City/State/[place] [address] (ABNORMAL) Differential, Automated (08/13/2017 5:33 AM EST) Patholo gist Method Time Signature Neutrophils % 77.8 % [facility] Neutr Abs (ANC) 7.83 (H) 1.70 - [facility] 6.10 [facility] x10(3)/[facility] LABORATORY Lymphocytes % 8.4 % [facility] Lymphocytes Abs 0.8 (L) 0.9 - 3.2 [facility] x10(3)/[facility] LABORATORY Monocytes % 8.3 % [facility] Monocyte Abs 0.8 0.3 - 0.9 [facility] x10(3)/[facility] LABORATORY Eosinophils % 4.6 % [facility] Eosinophils Abs 0.5 (H) 0.0 - 0.4 [facility] x10(3)/[facility] LABORATORY Basophils % 0.5 % [facility] Basophils Abs 0.0 0.0 - 0.1 [facility] x10(3)/[facility] LABORATORY Immature Gran % 0.40 [...] Melisa Gran Abs 0.04 0.00 - 0.04 x10(3)/[facility] MAR Y [facility] LABORATORY Specimen Anatomical Collection Method Collection Time Receive d Time (Source) Location / / Volume Laterality Blood specimen 08/13/2017 5:33 AM 018 6:04 (specimen) EST AM EST Resulting Agency Comment Spec In Lab Yonathan Smith MD HEMATOLOGY ORDERABLES Performing Organization Address City/State/ZIP Code Phon e Number [place] [id number]OS[address]ITAL LAB[address]ATORY Drive (ABNORMAL) Hemogram (08/13/2017 5:33 AM EST) Analysis Performed At Patho logist Time Signature WBC 10.1 (H) 4.0 - 9.5 [facility] x10(3)/[facility] LABORATORY RBC 3.21 (L) 4.58 - [facility] 5.54 [facility] x10(6)/[facility] LABORATORY Hemoglobin 9.2 (L) 13.7 - [facility] 16.5 gm/dL [facility] Hematocrit 29.6 (L) 40.5 - [facility] 48.5 % [facility] MCV 92.2 82.9 - [facility] 93.1 [facility] LABORATORY MCH 28.7 27.5 - [facility] 32.1 pg [facility] MCHC 31.1 (L) 32.0 - [facility] 35.7 gm/dL [facility] LABORATORY Platelets 263 145 - 357 [facility] x10(3)/[facility] LABORATORY RDWSD 54.8 (H) 36.0 - [facility] 45.0 [facility] LABORATORY RDWCV 16.4 (H) 11.4 - [facility] 13.8 % [facility] LABORATORY MPV 9.2 7.6 - 12.9 [facility] LABORATORY nRBC % Auto 0.0 % [facility] nRBC Abs Auto 0.000 0.000 - [facility] 0.000 [facility] x10(3)/[facility] LABORATORY Specimen Anatomical Collection Method Collection Time Receive d Time (Source) Location / / Volume Laterality Blood specimen 08/13/2017 5:33 AM 018 6:04 (specimen) EST AM EST Resulting Agency Comment Spec In Lab Yonathan Smith MD HEMATOLOGY ORDERABLES Performing Organization Address City/State/[place] [address] (ABNORMAL) Prothrombin Time (08/13/2017 [...] Organization Address City/State/[place] [address] (ABNORMAL) Basic Metabolic Panel (non-fasting) (08/13/2017 5:33 AM EST) P athologist Signature Glucose Lvl 126 65 - 199 [facility] mg/dL [facility] LABORATORY [...] [facility] Estimated GFR >60 >=60 [facility] Comment: The reported eGFR should be multiplied b y 1.2 for patients. The MDRD is not an appropriate measure o f renal function for patients with body mass extremes or in patients with acute kidney failure. [email or web address] [email or web address] Specimen Anatomical Collection Method Collection Time Receive d Time (Source) Location / / Volume Laterality Blood specimen 08/13/2017 5:33 AM 018 6:04 (specimen) EST AM EST Resulting Agency Comment Spec In Lab Yonathan Smith MD CHEMISTRY ORDERABLES Performing Organization Address City/State/ZIP Code Phon e Number [address] POCT Glucose (08/13/2017 4:29 AM EST) athologist Signature POC Glucose 111 65 - 199 [facility] mg/dL [facility]ORY Comment: [...] [place] [address] POCT Glucose (08/12/2017 11:28 PM EST) athologist Signature POC Glucose 164 65 - 199 [facility] mg/dL [facility] Comment: [...] [place]/ZIP Code Phon e Number [address] (ABNORMAL) POCT Glucose (08/12/2017 7:40 PM EST) athologist Signature POC Glucose 209 (H) 65 - 199 [facility] mg/dL [facility] Comment: [...] Address City/State/ZIP Code Phon e Number [address] POCT Glucose (08/12/2017 4:24 PM EST) athologist Signature POC Glucose 161 65 - 199 [facility] mg/dL [facility] Comment: [...] Address City/State/ZIP Code Phon e Number [address] POCT Glucose (08/12/2017 12:00 PM EST) athologist Signature POC Glucose 167 65 - 199 [facility] mg/dL [facility] Comment: [...] Address City/State/ZIP Code Phon e Number [address] POCT Glucose (08/12/2017 7:25 AM EST) athologist Signature POC Glucose 152 65 - 199 [facility] mg/dL [facility] Comment: [...] Organization Address City/State/[place] [address] (ABNORMAL) Differential, Automated (08/12/2017 6:29 AM EST) [facility] Method Time Signature Neutrophils % 78.7 % [facility] Neutr Abs (ANC) 7.94 (H) 1.70 - [facility] 6.10 [facility] x10(3)/[facility] LABORATORY Lymphocytes % 8.8 % [facility] Lymphocytes Abs 0.9 0.9 - 3.2 [facility] x10(3)/[facility] LABORATORY Monocytes % 7.8 % [facility] Monocyte Abs 0.8 0.3 - 0.9 [facility] x10(3)/[facility] LABORATORY Eosinophils % 3.9 % [facility] Eosinophils Abs 0.4 0.0 - 0.4 [facility] x10(3)/[facility] LABORATORY Basophils % 0.3 % [facility] Basophils Abs 0.0 0.0 - 0.1 [facility] x10(3)/[facility] LABORATORY Immature Gran % 0.50 [...] Address City/State/ZIP Code Phon e Number [address] (ABNORMAL) Hemogram (08/12/2017 6:29 AM EST) Analysis Performed At Patho logist Time Signature WBC 10.1 (H) 4.0 - 9.5 [facility] x[facility](3[facility] LABORATORY RBC 3.02 (L) 4.58 - [facility] 5.54 [facility] x10(6)/[facility] LABORATORY Hemoglobin 8.7 (L) 13.7 - [facility] 16.5 gm/dL [facility]ORY Hematocrit 28.1 (L) 40.5 - [facility] 48.5 % [facility]ORATORY MCV 93.0 82.9 - [facility] 93.1 [facility] LABORATORY MCH 28.8 27.5 - [facility] 32.1 pg [facility] LABORATORY MCHC 31.0 (L) 32.0 - [facility] 35.7 gm/dL [facility] LABORATORY Platelets 223 145 - 357 [facility] x10(3)/[facility] LABORATORY RDWSD 56.1 (H) 36.0 - [facility] 45.0 [facility] LABORATORY RDWCV 16.4 (H) 11.4 - [facility] RYAN 13.8 % [facility] LABORATORY MPV 9.0 7.6 - 12.9 [facility] LABORATORY nRBC % Auto 0.0 % [facility] nRBC Abs Auto 0.000 0.000 - [facility] 0.000 [facility] x10(3)/[facility] LABORATORY Specimen Anatomical Collection Method Collection Time Receive d Time (Source) Location / / Volume Laterality Blood specimen 08/12/2017 6:29 AM 018 6:38 (specimen) EST AM EST Resulting Agency Comment Spec In Lab Yonathan Smith MD HEMATOLOGY ORDERABLES Performing Organization Address City/State/[place] [address] (ABNORMAL) Prothrombin Time (08/12/2017 [...] Organization Address City/State/[place] [address] (ABNORMAL) Basic Metabolic Panel (non-fasting) (08/12/2017 6:29 AM EST) athologist Signature Glucose Lvl 151 65 - 199 [facility] mg/dL [facility] LABORATORY [...] [facility] Estimated GFR >60 >=60 [facility] Comment: The reported eGFR should be multiplied b y 1.2 for patients. The MDRD is not an appropriate measure o f renal function for patients with body mass extremes or in patients with acute kidney failure. [email or web address] [email or web address] Specimen Anatomical Collection Method Collection Time Receive d Time (Source) Location / / Volume Laterality Blood specimen 08/12/2017 6:29 AM 018 6:38 (specimen) EST AM EST Resulting Agency Comment Spec In Lab Yonathan Smith MD CHEMISTRY ORDERABLES Performing Organization Address City/[facility]/ZIP Code Phon e Number [address] POCT Glucose (08/12/2017 4:08 AM EST) athologist Signature POC Glucose 181 65 - 199 [facility] mg/dL [facility] Comment: [...] Organization Address City/State/[place] [address] (ABNORMAL) POCT Glucose (08/12/2017 12:17 AM EST) P athologist Signature POC Glucose 221 (H) 65 - 199 [facility] mg/dL [facility] Comment: [...] [place]/ZIP Code Phon e Number [address] (ABNORMAL) POCT Glucose (08/11/2017 8:52 PM EST) athologist Signature POC Glucose 221 (H) 65 - 199 [facility] mg/dL [facility] Comment: [...] [place] [facility] [place] [address] POCT Glucose (08/11/2017 5:59 PM EST) athologist Signature POC Glucose 169 65 - 199 [facility] mg/dL [facility] Comment: [...] [place] [address] (ABNORMAL) POCT Glucose (08/11/2017 4:08 PM EST) athologist Signature POC Glucose 240 (H) 65 - 199 [facility] mg/dL [facility] Comment: [...] Address City/State/ZIP Code Phon e Number [address] POCT Glucose (08/11/2017 12:04 PM EST) athologist Signature POC Glucose 182 65 - 199 [facility] mg/dL [facility] Comment: [...] Address City/State/ZIP Code Phon e Number [address] POCT Glucose (08/11/2017 7:31 AM EST) athologist Signature POC Glucose 156 65 - 199 [facility] mg/dL [facility] Comment: [...] Address City/State/ZIP Code Phon e Number [address] (ABNORMAL) Differential, Automated (08/11/2017 6:16 AM EST) [facility] gist Method Time Signature Neutrophils % 83.7 % [facility]ORATORY Neutr Abs (ANC) 10.76 (H) 1.70 - [facility] 6.10 [facility] x10(3)/[facility] LABORATORY Lymphocytes % 6.0 % [facility] Lymphocytes Abs 0.8 (L) 0.9 - 3.2 [facility] x10(3)/[facility] LABORATORY Monocytes % 7.5 % [facility] Monocyte Abs 1.0 (H) 0.3 - 0.9 [facility] x10(3)/[facility] LABORATORY Eosinophils % 2.0 % [facility] Eosinophils Abs 0.3 0.0 - 0.4 [facility] x10(3)/[facility] LABORATORY Basophils % 0.3 % [facility] Basophils Abs 0.0 0.0 - 0.1 [facility] x10(3)/[facility] LABORATORY Immature Gran % 0.50 [...] Organization Address City/State/[place] [address] (ABNORMAL) Hemogram (08/11/2017 6:16 AM EST) Analysis Performed At Patho logist Time Signature WBC 12.9 (H) 4.0 - 9.5 [facility] x10(3)/[facility] LABORATORY RBC 3.28 (L) 4.58 - [facility] 5.54 [facility] x10(6)/[facility] LABORATORY Hemoglobin 9.5 (L) 13.7 - [facility] 16.5 gm/dL [facility]OR[facility]ORY Hematocrit 29.8 (L) 40.5 - [facility] 48.5 % [facility] LABORATORY MCV 90.9 82.9 - [facility] 93.1 [facility] LABORATORY MCH 29.0 27.5 - [facility] 32.1 pg [facility] LABORATORY MCHC 31.9 (L) 32.0 - [facility] 35.7 gm/dL [facility] LABORATORY Platelets 236 145 - 357 [facility] x10(3)/[facility] LABORATORY RDWSD 53.5 (H) 36.0 - [facility] 45.0 [facility] LABORATORY RDWCV 16.3 (H) 11.4 - [facility] R[facility]AN 13.8 % [facility] LABORATORY MPV 8.8 7.6 - 12.9 [facility] LABORATORY nRBC % Auto 0.0 % [facility] LABOR[facility]ORY nRBC Abs Auto 0.000 0.000 - [facility] RYAN 0.000 [facility] x10(3)/[facility] LABORATORY Specimen Anatomical Collection Method Collection Time Receive d Time (Source) Location / / Volume Laterality Blood specimen 08/11/2017 6:16 AM 018 6:24 (specimen) EST AM EST Resulting Agency Comment Spec In Lab Yonathan Smith MD HEMATOLOGY ORDERABLES Performing Organization Address City/State/Z[place] [address] (ABNORMAL) Prothrombin Time (08/11/2017 [...] [place] [address] Basic Metabolic Panel (non-fasting) (08/11/2017 6:16 AM EST) athologist Signature Glucose Lvl 139 65 - 199 [facility] mg/dL [facility] LABORATORY [...] [facility] Estimated GFR >60 >=60 [facility] Comment: The reported eGFR should be multiplied b y 1.2 for patients. The MDRD is not an appropriate measure o f renal function for patients with body mass extremes or in patients with acute kidney failure. [email or web address] [email or web address] Specimen Anatomical Collection Method Collection Time Receive d Time (Source) Location / / Volume Laterality Blood specimen 08/11/2017 6:16 AM 018 6:24 (specimen) EST AM EST Resulting Agency Comment Spec In Lab Yonathan Smith MD CHEMISTRY ORDERABLES Performing Organization Address City/[facility]/ZIP Code Phon e Number [address] POCT Glucose (08/11/2017 4:07 AM EST) athologist Signature POC Glucose 162 65 - 199 [place] mg/dL [facility] Comment: [...] Address City/State/ZIP Code Phon e Number [address] POCT Glucose (08/10/2017 11:59 PM EST) athologist Signature POC Glucose 166 65 - 199 [place] mg/dL [facility] Comment: Supplemental ranges: <140 mg/dL before meals <180 mg/dL all other times of the day Specimen Anatomical Collection Method Collection Time Receive d Time (Source) Location / / Volume Laterality Blood specimen 08/10/2017 11:59 8 (specimen) PM EST 11:59 PM EST Yonathna Smith MD POINT OF CARE TEST ORDERABLE S Performing Organization Address City/State/[place] [address] POCT Glucose (08/10/2017 8:12 PM EST) athologist Signature POC Glucose 156 65 - 199 [facility] [place]AN mg/dL [facility] Comment: [...] Organization Address City/State/[place] [address] (ABNORMAL) POCT Glucose (08/10/2017 4:42 PM EST) P athologist Signature POC Glucose 211 (H) 65 - 199 [facility] mg/dL [facility] LABORATORY [...] Organization Address City/State/ZIP Code Phon e Number [place] [id number]OS[address] LAB[address]ORY [address] (ABNORMAL) Differential, Automated (08/10/2017 2:30 PM EST) Patholo gist Method Time Signature Neutrophils % 87.6 % [facility] LABORATORY Neutr Abs (ANC) 9.90 (H) 1.70 - [facility] 6.10 [facility] x10(3)/[facility] L LABORATORY Lymphocytes % 4.3 % [facility] LABORATORY Lymphocytes Abs 0.5 (L) 0.9 - 3.2 [facility] x10(3)/[facility] LABORATORY Monocytes % 6.0 % [facility] LABORATORY Monocyte Abs 0.7 0.3 - 0.9 [facility] x10(3)/[facility] LABORATORY Eosinophils % 1.1 % [facility] LABORATORY Eosinophils Abs 0.1 0.0 - 0.4 [facility] x10(3)/[facility] LABORATORY Basophils % 0.4 % [facility] LABORATORY Basophils Abs 0.0 0.0 - 0.1 [facility] x10(3)/[facility] LABORATORY Immature Gran % 0.60 [...] Organization Address City/State/[place] [address] (ABNORMAL) Hemogram (08/10/2017 2:30 PM EST) Analysis Performed At Patho logist Time Signature WBC 11.3 (H) 4.0 - 9.5 [facility] x10(3)/[facility] LABORATORY RBC 3.13 (L) 4.58 - [facility] 5.54 [facility] x10(6)/[facility] LABORATORY Hemoglobin 8.9 (L) 13.7 - [facility] 16.5 gm/dL [facility] LABORATORY Hematocrit 28.4 (L) 40.5 - [facility] 48.5 % [facility]ATORY MCV 90.7 82.9 - [facility] 93.1 [facility] LABORATORY MCH 28.4 27.5 - [facility] 32.1 pg [facility] LABORATORY MCHC 31.3 (L) 32.0 - [facility] 35.7 gm/dL [facility] LABORATORY Platelets 213 145 - 357 [facility] x10(3)/[facility] LABORATORY RDWSD 53.7 (H) 36.0 - [facility] RYAN 45.0 [facility] LABORATORY RDWCV 16.4 (H) 11.4 - [facility] R[place]AN 13.8 % [facility] LABORATORY MPV 8.9 7.6 - 12.9 [facility] LABORATORY nRBC % Auto 0.0 % [facility] LABORATORY nRBC Abs Auto 0.000 0.000 - [facility] RYAN 0.000 [facility] x10(3)/[facility] LABORATORY Specimen Anatomical Collection Method Collection Time Receive d Time (Source) Location / / Volume Laterality Blood specimen 08/10/2017 2:30 PM 018 2:48 (specimen) EST PM EST Resulting Agency Comment Spec In Lab Yonathan Smith MD HEMATOLOGY ORDERABLES Performing Organization Address City/State/ZIP Code Phon e Number [address] (ABNORMAL) POCT Glucose (08/10/2017 1:50 PM EST) athologist Signature POC Glucose 243 (H) 65 - 199 [facility] mg/dL [facility] Comment: [...] [place]/ZIP Code Phon e Number [address] POCT Glucose (08/10/2017 11:21 AM EST) athologist Signature POC Glucose 156 65 - 199 [facility] mg/dL [facility] Comment: [...] [place] [address] (ABNORMAL) Differential, Automated (08/10/2017 10:28 AM EST) [facility] Method Time Signature Neutrophils % 85.3 % [facility] LABORATORY Neutr Abs (ANC) 9.43 (H) 1.70 - [facility] 6.10 [facility] x10(3)/[facility] L LABORATORY Lymphocytes % 5.5 % [facility] LABORATORY Lymphocytes Abs 0.6 (L) 0.9 - 3.2 [facility] x10(3)/[facility] LABORATORY Monocytes % 5.9 % [facility] LABORATORY Monocyte Abs 0.6 0.3 - 0.9 [facility] x10(3)/[facility] LABORATORY Eosinophils % 2.1 % [facility] LABORATORY Eosinophils Abs 0.2 0.0 - 0.4 [facility] x10(3)/[facility] LABORATORY Basophils % 0.4 % [facility] LABORATORY Basophils Abs 0.0 0.0 - 0.1 [facility] x10(3)/[facility] LABORATORY Immature Gran % 0.80 [...] Organization Address City/State/[place] [address] (ABNORMAL) Hemogram (08/10/2017 10:28 AM EST) Analysis Performed At Patho logist Time Signature WBC 11.0 (H) 4.0 - 9.5 [facility] x10(3)/[facility] LABORATORY RBC 3.02 (L) 4.58 - [facility] 5.54 [facility] x10(6)/[facility] LABORATORY Hemoglobin 8.8 (L) 13.7 - [facility] 16.5 gm/dL [facility] LABOR[facility]ORY Hematocrit 28.1 (L) 40.5 - [facility] 48.5 % [facility] LABORATORY MCV 93.0 82.9 - [facility] 93.1 [facility] MCH 29.1 27.5 - [place] 32.1 pg [facility] MCHC 31.3 (L) 32.0 - [place] 35.7 gm/dL [facility] Platelets 207 145 - 357 [facility] x10(3)/[facility] LABORATORY RDWSD 55.3 (H) 36.0 - [place] 45.0 [facility] RDWCV 16.4 (H) 11.4 - [facility] RYAN 13.8 % [facility] MPV 9.0 7.6 - 12.9 [facility] LABORATORY nRBC % Auto 0.0 % [facility] nRBC Abs Auto 0.000 0.000 - [facility] RYAN 0.000 [facility] x10(3)/[facility] LABORATORY Specimen Anatomical Collection Method Collection Time Receive d Time (Source) Location / / Volume Laterality Blood specimen 08/10/2017 10:28 8 (specimen) AM EST 10:35 AM EST Resulting Agency Comment Spec In Lab Yonathan Smith MD HEMATOLOGY ORDERABLES Performing Organization Address City/State/Z[place] [address] VS Angiogram/intervention (vascular) (08/10/2017 [...] 2.5x80 5. Completion RLE angiogram 6. L DRAPERY ESTIMATOR angiogram 7. 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 - L DRAPERY ESTIMATOR angriogram demonstrated: High fe moral bifurcation over the proximal half of the femoral head. L DRAPERY ESTIMATOR access in the distal L DRAPERY ESTIMATOR. - Closure device: Mynx Technical Procedure: ?The [...] for a 45cm 5F Destination. V18 and [place] a nd QuickCross catheters were used to [...] bifurcation. Access appeared in the distal R DRAPERY ESTIMATOR. Closure and sheath removal was performed with [...] 2.5x80 5. Completion RLE angiogram 6. L DRAPERY ESTIMATOR angiogram 7. 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 - L DRAPERY ESTIMATOR angriogram demonstrated: High fe moral bifurcation over the proximal half of the femoral head. L DRAPERY ESTIMATOR access in the distal L DRAPERY ESTIMATOR. - Closure device: Mynx Technical Procedure: The [...] for a 45cm 5F Destination. V18 and [place] a nd QuickCross catheters were used to [...] bifurcation. Access appeared in the distal R DRAPERY ESTIMATOR. Closure and sheath removal was performed with [...] (ABNORMAL) Differential, Automated (08/10/2017 5:50 AM EST) [facility] gist Method Time Signature Neutrophils % 80.1 % [facility] LABORATORY Neutr Abs (ANC) 9.01 (H) 1.70 - [facility] 6.10 [facility] x10(3)/[facility] LABORATORY Lymphocytes % 8.8 % [facility] LABORATORY Lymphocytes Abs 1.0 0.9 - 3.2 [facility] x10(3)/[facility] LABORATORY Monocytes % 8.3 % [facility] LABORATORY Monocyte Abs 0.9 0.3 - 0.9 [facility] x10(3)/[facility] LABORATORY Eosinophils % 2.0 % [facility] LABORATORY Eosinophils Abs 0.2 0.0 - 0.4 [facility] x10(3)/[facility] LABORATORY Basophils % 0.4 % [facility] LABORATORY Basophils Abs 0.0 0.0 - 0.1 [facility] x10(3)/[facility] LABORATORY Immature Gran % 0.40 [...] Organization Address City/State/[place] [address] (ABNORMAL) Hemogram (08/10/2017 5:50 AM EST) Analysis Performed At Patho logist Time Signature WBC 11.3 (H) 4.0 - 9.5 [facility] x10(3)/[facility] LABORATORY RBC 3.15 (L) 4.58 - [facility] 5.54 [facility] x10(6)/[facility] LABORATORY Hemoglobin 8.9 (L) 13.7 - [facility] 16.5 gm/dL [facility]OR[facility] Hematocrit 29.0 (L) 40.5 - [facility] 48.5 % [facility]AT[facility] MCV 92.1 82.9 - [facility] 93.1 [facility] LABORATORY MCH 28.3 27.5 - [facility] RYAN 32.1 pg [facility] LABORATORY MCHC 30.7 (L) 32.0 - [facility] 35.7 gm/dL [facility] Platelets 231 145 - 357 [facility] x10(3)/[facility] LABORATORY RDWSD 53.9 (H) 36.0 - [facility] RYAN 45.0 [facility] LABORATORY RDWCV 16.2 (H) 11.4 - [facility] RYAN 13.8 % [facility] LABORATORY MPV 8.7 7.6 - 12.9 [facility] LABORATORY nRBC % Auto 0.0 % [facility] LABORATORY nRBC Abs Auto 0.000 0.000 - [facility] 0.000 [facility] x10(3)/[facility] LABORATORY Specimen Anatomical Collection Method Collection Time Receive d Time (Source) Location / / Volume Laterality Blood specimen 08/10/2017 5:50 AM 018 5:59 (specimen) EST AM EST Resulting Agency Comment Spec In Lab Yonathan Smith MD HEMATOLOGY ORDERABLES Performing Organization Address City/State/[place] [address] (ABNORMAL) Basic Metabolic Panel (non-fasting) (08/10/2017 5:50 AM EST) athologist Signature Glucose Lvl 135 65 - 199 [facility] mg/dL [facility] LABORATORY [...] [facility] Estimated GFR >60 >=60 [facility] Comment: The reported eGFR should be multiplied b y 1.2 for patients. The MDRD is not an appropriate measure o f renal function for patients with body mass extremes or in patients with acute kidney failure. [email or web address]://Zairge/DHnkdep [email or web address]/DHMCnkf Specimen Anatomical Collection Method Collection Time Receive d Time (Source) Location / / Volume Laterality Blood specimen 08/10/2017 5:50 AM 018 5:59 (specimen) EST AM EST Resulting Agency Comment Spec In Lab Yonathan Smith MD CHEMISTRY ORDERABLES Performing Organization Address City/[facility]/[place] [address] (ABNORMAL) Prothrombin Time (08/10/2017 [...] [place] [address] (ABNORMAL) POCT Glucose (08/10/2017 4:01 AM EST) athologist Signature POC Glucose 206 (H) 65 - 199 [facility] mg/dL [facility] LABORATORY [...] [place]/Z[place] [address] POCT Glucose (08/10/2017 2:01 AM EST) athologist Signature POC Glucose 188 65 - 199 [place] mg/dL [facility] Comment: [...] Organization Address City/State/[place] [address] (ABNORMAL) POCT Glucose (08/09/2017 11:42 PM EST) athologist Signature POC Glucose 283 (H) 65 - 199 [facility] mg/dL [facility] Comment: [...] Organization Address City/State/[place] [address] POCT Glucose (08/09/2017 8:55 PM EST) athologist Signature POC Glucose 182 65 - 199 [place] mg/dL [facility] Comment: [...] Organization Address City/State/[place] [address] (ABNORMAL) APTT (08/09/2017 6:42 [...] Organization Address City/[facility]/ZIP [facility] Phon e Number [address] POCT Glucose (08/09/2017 4:41 PM EST) athologist Signature POC Glucose 195 65 - 199 [facility] mg/dL [facility] Comment: [...] [place] [facility] [place] [address] POCT Glucose (08/09/2017 12:29 PM EST) athologist Signature POC Glucose 140 65 - 199 [facility] mg/dL [facility] Comment: [...] Organization Address City/State/[place] [address] POCT Glucose (08/09/2017 9:59 AM EST) P athologist Signature POC Glucose 135 65 - 199 [facility] mg/dL [facility] LABORATORY [...] [place] [address] Specimen to Pathology (08/09/2017 [...] [place] [address] Surgical Pathology Report (08/09/2017 8:40 AM EST) Component Value Ref Test Analysis Performed At Patholo gist Range Method Time Signature Surgical [id number] ? [facility]; [facility]; A [facility] Report The signing pathologist [...] Flower Verified: ??08/13/2017 ?Pathologist Performed at: ??-[facility] Dept. of Pathology, [place], [place] CLINICAL INFORMATION Specimen Submitted: A - [...] Organization Address City/State/[place] [address] Anaerobic Culture (08/09/2017 8:30 AM EST) [facility] gist Method Time Signature Anaerobic No anaerobic [facility] Culture organisms [facility] LABORATORY [...] Organization Address City/State/[place] [address] (ABNORMAL) Abscess/Wound Aspirate Culture (08/09/2017 8:30 AM EST) Patholo gist Method Time Signature Abscess/Wound Moderate mixed [place] Aspirate bacterial DEVERS Culture morphotypes [facility] normal LABORATORY cutaneous leroy (A) Gram Stain Rare White Blood Cells [place] Few Gram Positive Cocci in pairs DEVERS () [facility] Organism Gram Positive [place] Cocci in pairs DEVERS () [facility] LABOR[facility] Specimen Anatomical [...] ORDER ROBSON Performing Organization Address City/[facility]/ZIP Code Phon e Number [address] POCT Glucose (08/09/2017 4:28 AM EST) P athologist Signature POC Glucose 128 65 - 199 [facility] mg/dL [facility] Comment: [...] [place] [address] ABORH Recheck Status (08/09/2017 1:10 AM EST) [facility] gist Method Time Signature ABORH [...] [place] [address] Antibody screen (08/09/2017 1:10 AM EST) [facility] Method Time Signature Ab Screen Negative [facility] LABORATORY Expires at 08/12/2017 [facility] [id number] on: [facility] LABOR[facility]ORY Specimen Anatomical Collection Method Collection Time Receive d Time (Source) Location / / Volume Laterality Blood specimen 08/09/2017 1:10 AM 018 1:35 (specimen) EST AM EST Resulting Agency Comment Spec In Lab Yonathan Smith MD BLOOD BANK ORDERABLES Performing Organization Address City/[facility]/[place] [address] ABO/Rh Typing (08/09/2017 1:10 [...] [place] [address] (ABNORMAL) APTT (08/09/2017 1:10 [...] Organization Address City/State/[place] [address] (ABNORMAL) Differential, Automated (08/09/2017 1:10 AM EST) [facility] gist Method Time Signature Neutrophils % 76.2 % [facility] LABORATORY Neutr Abs (ANC) 8.59 (H) 1.70 - [facility] 6.10 [facility] x10(3)/[facility] LABORATORY Lymphocytes % 11.0 % [facility] LABORATORY Lymphocytes Abs 1.2 0.9 - 3.2 [facility] x10(3)/[facility] LABORATORY Monocytes % 8.4 % [facility] LABORATORY Monocyte Abs 1.0 (H) 0.3 - 0.9 [facility] x10(3)/[facility] LABORATORY Eosinophils % 3.5 % [facility] LABORATORY Eosinophils Abs 0.4 0.0 - 0.4 [facility] x10(3)/[facility] LABORATORY Basophils % 0.5 % [facility] LABORATORY Basophils Abs 0.1 0.0 - 0.1 [facility] x10(3)/[facility] LABORATORY Immature Gran % 0.40 [...] Organization Address City/State/[place] [address] (ABNORMAL) Hemogram (08/09/2017 1:10 AM EST) Analysis Performed At Patho logist Time Signature WBC 11.3 (H) 4.0 - 9.5 [facility] x10(3)/[facility] LABORATORY RBC 3.47 (L) 4.58 - [facility] 5.54 [facility] x10(6)/[facility] LABORATORY Hemoglobin 10.0 (L) 13.7 - [facility] 16.5 gm/dL [facility] LABORATORY Hematocrit 31.9 (L) 40.5 - [facility] 48.5 % [facility] LABORATORY MCV 91.9 82.9 - [facility] 93.1 [facility] LABORATORY MCH 28.8 27.5 - [facility] 32.1 pg [facility] LABORATORY MCHC 31.3 (L) 32.0 - [facility] 35.7 gm/dL [facility] LABORATORY Platelets 234 145 - 357 [facility] x10(3)/[facility] LABORATORY RDWSD 54.0 (H) 36.0 - [facility] 45.0 [facility] LABORATORY RDWCV 16.2 (H) 11.4 - [facility] RYAN 13.8 % [facility] LABORATORY MPV 8.7 7.6 - 12.9 [facility] LABORATORY nRBC % Auto 0.0 % [facility] LABORATORY nRBC Abs Auto 0.000 0.000 - [facility] YRAN 0.000 [facility] x10(3)/[facility] LABORATORY Specimen Anatomical Collection Method Collection Time Receive d Time (Source) Location / / Volume Laterality Blood specimen 08/09/2017 1:10 AM 018 1:19 (specimen) EST AM EST Resulting Agency Comment Spec In Lab Yonathan Smith MD HEMATOLOGY ORDERABLES Performing Organization Address City/State/[place] [address] (ABNORMAL) Prothrombin Time (08/09/2017 [...] Organization Address City/State/ZIP Code Phon e Number [place] [id number]OSP[address] LAB[address] (ABNORMAL) Basic Metabolic Panel (non-fasting) (08/09/2017 1:10 AM EST) athologist Signature Glucose Lvl 108 65 - 199 [facility] mg/dL [facility] LABORATORY [...] or in patients with acute kidney failure. [email or web address] [email or web address] Specimen Anatomical Collection Method Collection Time Receive d Time (Source) Location / / Volume Laterality Blood specimen 08/09/2017 1:10 AM 018 1:19 (specimen) EST AM EST Resulting Agency Comment Spec In Lab Yonathan Smith MD CHEMISTRY ORDERABLES Performing Organization Address City/[facility]/ZIP Code Phon e Number [address] POCT Glucose (08/09/2017 12:05 AM EST) athologist Signature POC Glucose 128 65 - 199 [facility] mg/dL [facility] LABORATORY Comment: [...] [place] [address] (ABNORMAL) POCT Glucose (08/08/2017 7:36 PM EST) athologist Signature POC Glucose 215 (H) 65 - 199 [facility] mg/dL [facility] Comment: [...] [place] [address] (ABNORMAL) POCT Glucose (08/08/2017 6:23 PM EST) athologist Signature POC Glucose 216 (H) 65 - 199 [facility] mg/dL [facility] Comment: Supplemental ranges: <140 mg/dL before meals <180 mg/dL all other times of the day Specimen Anatomical Collection Method Collection Time Receive d Time (Source) Location / / Volume Laterality Blood specimen 08/08/2017 6:23 PM 018 6:23 (specimen) EST PM EST Yonathan Smith MD POINT OF CARE TEST ORDERABLE S Performing Organization Address [facility] [place] [address] (ABNORMAL) APTT (08/08/2017 6:00 [...] [place] [facility] [place] [address] [facility] [address] POCT Glucose (08/08/2017 4:42 PM EST) athologist Signature POC Glucose 78 65 - 199 [facility] mg/dL [facility] LABORATORY Comment: [...] Organization Address City/State/[place] [address] (ABNORMAL) POCT Glucose (08/08/2017 4:01 PM EST) P athologist Signature POC Glucose 58 (L) 65 - 199 [facility] LABORATORY Comment: [...] Organization Address City/State/[place] [address] POCT Glucose (08/08/2017 11:51 AM EST) P athologist Signature POC Glucose 90 65 - 199 [facility] mg/dL [facility] LABORATORY Comment: [...] Address City/State/ZIP Code Phon e Number [address] (ABNORMAL) APTT (08/08/2017 10:27 [...] [place]/ZIP Code Phon e Number [address] POCT Glucose (08/08/2017 8:02 AM EST) athologist Signature POC Glucose 178 65 - 199 [facility] mg/dL [facility] LABORATORY [...] [place] [address] (ABNORMAL) APTT (08/08/2017 4:51 AM EST) athologist Signature PTT >160 25 - 35 [facility] (Critical) sec [facility] LABORATORY Comment: Called by: HOWARD, Read [...] Address City/State/ZIP [place] [address] (ABNORMAL) Differential, Automated (08/08/2017 4:51 AM EST) [facility] Method Time Signature Neutrophils % 77.9 % [facility] LABORATORY Neutr Abs (ANC) 8.17 (H) 1.70 - [facility] 6.10 [facility] x10(3)/[facility] LABORATORY Lymphocytes % 10.3 % [facility] LABORATORY Lymphocytes Abs 1.1 0.9 - 3.2 [facility] x10(3)/[facility] LABORATORY Monocytes % 7.0 % [facility] LABORATORY Monocyte Abs 0.7 0.3 - 0.9 [facility] x10(3)/[facility] LABORATORY Eosinophils % 3.6 % [facility] LABORATORY Eosinophils Abs 0.4 0.0 - 0.4 [facility] x10(3)/[facility] LABORATORY Basophils % 0.5 % [facility] LABORATORY Basophils Abs 0.0 0.0 - 0.1 [facility] x10(3)/[facility] LABORATORY Immature Gran % 0.70 [...] Organization Address City/State/[place] [address] (ABNORMAL) Hemogram (08/08/2017 4:51 AM EST) Analysis Performed At Patho logist Time Signature WBC 10.5 (H) 4.0 - 9.5 [facility] x[facility](3[facility] LABORATORY RBC 3.27 (L) 4.58 - [place] RYAN 5.54 [facility] x10(6)/[facility] LABORATORY Hemoglobin 9.3 (L) 13.7 - [facility] 16.5 gm/dL [facility] LABORATORY Hematocrit 30.3 (L) 40.5 - [facility] 48.5 % [facility] LABORATORY MCV 92.7 82.9 - [facility] 93.1 [facility] LABORATORY MCH 28.4 27.5 - [place] RYAN 32.1 pg [facility] LABORATORY MCHC 30.7 (L) 32.0 - [facility] R[facility] 35.7 gm/dL [facility] LABORATORY Platelets 252 145 - 357 [facility] x10(3)/[facility] LABORATORY RDWSD 54.6 (H) 36.0 - [facility] 45.0 [facility] LABORATORY RDWCV 16.2 (H) 11.4 - [facility] 13.8 % [facility] LABORATORY MPV 9.1 7.6 - 12.9 [facility] LABORATORY nRBC % Auto 0.0 % [facility] LABORATORY nRBC Abs Auto 0.000 0.000 - [facility] 0.000 [facility] x10(3)/[facility] LABORATORY Specimen Anatomical Collection Method Collection Time Receive d Time (Source) Location / / Volume Laterality Blood specimen 08/08/2017 4:51 AM 018 5:14 (specimen) EST AM EST Resulting Agency Comment Spec In Lab Yonathan Smith MD HEMATOLOGY ORDERABLES Performing Organization Address City/State/ZIP Code Phon e Number [place] [id number] (ABNORMAL) Prothrombin Time (08/08/2017 [...] Organization Address City/State/[place] [address] (ABNORMAL) Basic Metabolic Panel (non-fasting) (08/08/2017 4:51 AM EST) athologist Signature Glucose Lvl 229 (H) 65 - 199 [facility] mg/dL [facility] LABORATORY [...] or in patients with acute kidney failure. [email or web address] Specimen Anatomical Collection Method Collection Time Receive d Time (Source) Location / / Volume Laterality Blood specimen 08/08/2017 4:51 AM 018 5:14 (specimen) EST AM EST Resulting Agency Comment Spec In Lab Yonathan Smith MD CHEMISTRY ORDERABLES Performing Organization Address City/[facility] [place] [facility] [place]/[facility] Phon e Number [address] POCT Glucose (08/08/2017 4:20 AM EST) athologist Signature POC Glucose 193 65 - 199 [facility] mg/dL [facility] LABORATORY Comment: [...] [place]/ZIP Code Phon e Number [address] POCT Glucose (08/07/2017 11:11 PM EST) P athologist Signature POC Glucose 124 65 - 199 [facility] mg/dL [facility] LABORATORY Comment: [...] [place] [address] (ABNORMAL) APTT (08/07/2017 10:18 [...] ORDERABLES Performing Organization Address [facility] [place] [facility] [place] [address] POCT Glucose (08/07/2017 8:10 PM EST) athologist Signature POC Glucose 140 65 - 199 [facility] mg/dL [facility] LABORATORY Comment: [...] [place]/ZIP Code Phon e Number [address] POCT Glucose (08/07/2017 5:27 PM EST) athologist Signature POC Glucose 187 65 - 199 [facility] mg/dL [facility] LABORATORY Comment: [...] [place]/ZIP Code Phon e Number [address] POCT Glucose (08/07/2017 3:29 PM EST) athologist Signature POC Glucose 86 65 - 199 [facility] mg/dL [facility] LABORATORY Comment: Supplemental ranges: <140 mg/dL before meals <180 mg/dL all other times of the day Specimen Anatomical Collection Method Collection Time Receive d Time (Source) Location / / Volume Laterality Blood specimen 08/07/2017 3:29 PM 018 3:29 (specimen) EST PM EST Yonathan Smith MD POINT OF CARE TEST ORDERABLE S Performing Organization Address [facility] [place] [facility] [place]/[facility] [place] [address] (ABNORMAL) APTT (08/07/2017 2:50 [...] Organization Address City/[facility] [place] [facility] [place]/ZIP [facility] [place] [address] (ABNORMAL) POCT Glucose (08/07/2017 2:23 PM EST) athologist Signature POC Glucose 55 (L) 65 - 199 [facility] mg/dL [facility] LABORATORY Comment: [...] Address City/State/ZIP Code Phon e Number [address] POCT Glucose (08/07/2017 12:08 PM EST) P athologist Signature POC Glucose 77 65 - 199 [facility] mg/dL [facility] LABORATORY [...] Organization Address City/State/[place] [address] (ABNORMAL) Differential, Automated (08/07/2017 7:30 AM EST) Patholo gist Method Time Signature Neutrophils % 73.8 % [facility] LABORATORY Neutr Abs (ANC) 7.17 (H) 1.70 - [facility] 6.10 [facility] x10(3)/[facility] LABORATORY Lymphocytes % 12.2 % [facility] LABORATORY Lymphocytes Abs 1.2 0.9 - 3.2 [facility] x10(3)/[facility] LABORATORY Monocytes % 9.0 % [facility] LABORATORY Monocyte Abs 0.9 0.3 - 0.9 [facility] x10(3)/[facility] LABORATORY Eosinophils % 3.9 % [facility] LABORATORY Eosinophils Abs 0.4 0.0 - 0.4 [facility] x10(3)/[facility] LABORATORY Basophils % 0.6 % [facility] LABORATORY Basophils Abs 0.1 0.0 - 0.1 [facility] x10(3)/[facility] LABORATORY Immature Gran % 0.50 [...] Organization Address City/State/[place] [address] (ABNORMAL) Hemogram (08/07/2017 7:30 AM EST) Analysis Performed At Patho logist Time Signature WBC 9.7 (H) 4.0 - 9.5 [facility] x10(3)/[facility] LABORATORY RBC 3.54 (L) 4.58 - [facility] 5.54 [facility] x10(6)/[facility] LABORATORY Hemoglobin 9.9 (L) 13.7 - [facility] 16.5 gm/dL [facility] LABORATORY Hematocrit 32.3 (L) 40.5 - [facility] 48.5 % [facility] LABORATORY MCV 91.2 82.9 - [facility] 93.1 [facility] LABORATORY MCH 28.0 27.5 - [facility] 32.1 pg [facility] LABORATORY MCHC 30.7 (L) 32.0 - [facility] 35.7 gm/dL [facility] LABORATORY Platelets 312 145 - 357 [facility] x10(3)/[facility] LABORATORY RDWSD 53.2 (H) 36.0 - [facility] 45.0 [facility] RDWCV 16.0 (H) 11.4 - [facility] 13.8 % [facility] LABORATORY MPV 8.9 7.6 - 12.9 [facility] LABORATORY nRBC % Auto 0.0 % [facility] LABORATORY nRBC Abs Auto 0.000 0.000 - [facility] 0.000 [facility] x10(3)/[facility] LABORATORY Specimen Anatomical Collection Method Collection Time Receive d Time (Source) Location / / Volume Laterality Blood specimen 08/07/2017 7:30 AM 018 7:45 (specimen) EST AM EST Resulting Agency Comment Spec In Lab Yonathan Smith MD HEMATOLOGY ORDERABLES Performing Organization Address City/State/[place] [address] (ABNORMAL) Basic Metabolic Panel (non-fasting) (08/07/2017 7:30 AM EST) P athologist Signature Glucose Lvl 80 65 - 199 [facility] mg/dL [facility] LABORATORY [...] or in patients with acute kidney failure. [email or web address] Specimen Anatomical Collection Method Collection Time Receive d Time (Source) Location / / Volume Laterality Blood specimen 08/07/2017 7:30 AM 018 7:45 (specimen) EST AM EST Resulting Agency Comment Spec In Lab Yonathan Smith MD CHEMISTRY ORDERABLES Performing Organization Address City/[facility] [place] [facility] [place]/ZIP Code Phon e Number [address] POCT Glucose (08/07/2017 7:27 AM EST) athologist Signature POC Glucose 81 65 - 199 [facility] mg/dL [facility] LABORATORY [...] [place]/ZIP Code Phon e Number [address] APTT (08/07/2017 7:04 AM [...] [place]/ZIP Code Phon e Number [address] (ABNORMAL) Prothrombin Time (08/07/2017 [...] Address City/State/ZIP Code Phon e Number [address] POCT Glucose (08/07/2017 4:03 AM EST) athologist Signature POC Glucose 93 65 - 199 [facility] mg/dL [facility] LABORATORY Comment: [...] Address City/State/ZIP Code Phon e Number [address] POCT Glucose (08/07/2017 12:04 AM EST) athologist Signature POC Glucose 107 65 - 199 [facility] mg/dL [facility] LABORATORY Comment: [...] Address City/State/ZIP Code Phon e Number [address] POCT Glucose (08/06/2017 7:56 PM EST) P athologist Signature POC Glucose 178 65 - 199 [facility] mg/dL [facility] LABORATORY Comment: [...] Address City/State/ZIP Code Phon e Number [address] TcPO2 (08/06/2017 2:32 PM EST) Component Value Ref Test Analysis Performed At Patholo gist Range Method Time Signature VB Text Department: Vascular Surgery Lab VASCUBASE Report Patient: [id number] (GREGORY HOANG) CPT: [id number] ICD10: I99.8 Referring Physician: YONATHAN SMITH ?? [...] / Volume Laterality 08/06/2017 2:32 PM EST Yontahan Smith MD VASCULAR ORDERABLES Performing Organization Address [...]
Routine documented in this encounter Care Teams Metal Cleaner Relationship Specialty Start Date End Date Lovely Vicente MD PCP - General 04/16/[address] [place] [address] documented as of this encounter
--- OUTSIDE RECORDS SUMMARY | 2022-05-15 08:25 | XMS_ITS | Encounter Summary ---
:1945 [place] [address] Care Team Providers Name Role Phone Lovely Vicente MD Primary Care Provider Reason for Visit Auth/Cert Specialty Diagnoses / Procedures Referred By Contact Refer red To Contact Diagnoses Critical lower limb ischemia CELLULITIS RT FOOT Procedures EMERGENCY Referral ID Status Reason Start Date Expiration Date Visits Requ ested Visits Authorized [id number] 1 1 Encounter Details Date Type Department Care Team Description 08/09/2017 Anesthesia Event Main Operating Room Daniele Lizama MD [facility] [place] [address] [facility] Rob Jones MD [facility] [place] [address] [place] [address] Anesthesia Record Procedure Summary Procedure Name [...] Knowles, Dory arm), right; VAMSI Rios, RN tlyz-bvg-xzhfbq catheter system; 20 gauge; 08/16/17; 1047 PIV 07/29/17; 1413; median 07/29/17 1413 by 08/16/17 1047 by cubital vein (antecubital Magdalene Hickey Williams, Dory fossa), left; VAMSI Wyatt, RN dlti-cev-qztovv catheter system; 20 gauge; 08/16/17; 1047 PIV 08/06/17; 1742; cephalic 08/06/17 1742 by 0920 by vein (lateral side of Taylor Laureano Danah y, Caitlyn C, arm), right; VAMSI BONNER jekp-okc-qlszsp catheter system; 22 gauge, 1 in length; Eliseo LAUREANO RN VAS; distraction, intradermal injection, tolerated well, appears comfortable; 0; 08/16/17; 0920 Wound 08/07/17; 1335; knee; 08/07/17 1335 by 08/16/17 1047 by laceration; wound occured Barbara Albert iams, Dory PARTS AND SERVICE MANAGER; 08/16/17; 1047 VAMSI Alonzo, RN PIV 08/07/17; 1734; cephalic 08/07/17 1734 by 1047 by vein (lateral side of Kendrick, Carlos W, Willia ms, Dory arm), left; MARCIE Wyatt RN ntkz-lnc-ytcirp catheter system; 22 gauge; distraction, intradermal injection, [...] Santillan MD - 08/09/2017 9:01 AM EST [facility] Department of Anesthesiology Post-procedure Note Patient: Don Fatima Procedure Summary Date Anesthesia Start Anesthesia Stop Room / Location 08/09/[address] [facility] OR 14 / 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 Nerve [...] [facility] Social History Substance [...] adequate IV access. Brody Santillan MD PGY-2, Acupuncture Physician Pager #[phone] Anesthesiology Staff (Dewhirst): Pre-op summary note as [...] MD [facility] [place], [place] [address] (Wo rk) 05/28/2022 Laboratory Appointment Lab 05/28/2022 Office Visit Cardiology Zulma Dolan MD [facility] [place] [address] Liz Poole PA [facility] [place] [address] 06/10/2022 Office Visit Dermatology Laura Scherer MD [facility] [address] [place], [place] [address] (Wo rk) documented as of [...] Length: 10 cm Gauge: 21 Needle Type: L-pjdep-jljpm Medication injection made in crementally with aspirations. [...] Procedure) documented in this encounter Care Teams Hedis Review Nurse Relationship Specialty Start Date End Date Lovely Vicente MD PCP - General 04/16/[address] [place] [address] documented as of this encounter
--- OUTSIDE RECORDS SUMMARY | 2022-05-15 08:26 | XMS_ITS | Encounter Summary ---
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 [facility] [address], [place], [place] [phone] Social History Tobacco Use Types Packs/Day Years [...] APRN - 07/30/2017 1:45 PM EST [facility] [place] [address] Phone: PAIN MANAGEMENT NEW PATIENT / CONSULTATION NOTE DATE OF VISIT 07/30/2017 Patient Don Fatima 1945 REFERRING PROVIDER Lovely Vicente MD [address] [place] [id number] PRIMARY CARE PROVIDER Lovely Vicente MD CHIEF [...] PAST THERAPIES: Nothing MEDICATIONS The [place] Prescription Monitoring Program was checked and no [...] at [facility] ENDOSCOPY ??? PRO ENDOSCOPY W/VIDEO-ASST [...] referral, Lovely Vicente MD [address] [place] [address]. [facility], MSN, MANAGER FORENSIC-BC, THERMIT WELDING MACHINE OPERATOR Nurse Practitioner Pain Management Center documented in this encounter Plan of Treatment Upcoming Encounters Date Type Specialty Care Team Description 05/28/2022 Appointment Cardiology Zulma Dolan MD [facility] [place], [place] [address] (Wo rk) 05/28/2022 Laboratory Appointment Lab 05/28/2022 Office Visit Cardiology Zulma Dolan MD [facility] [place] [address] Liz Poole PA [facility] [place] [address] 06/10/2022 Office Visit Dermatology Laura Scherer MD [facility] [address] [place], [place] [address] (Wo rk) documented as of this encounter Visit Diagnoses Diagnosis 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
--- OUTSIDE RECORDS SUMMARY | 2022-05-15 08:26 | XMS_ITS | Encounter Summary ---
:1945 Author Organization [facility] [address] Care Team Providers Name Role Phone Lovely Vicente MD Primary Care Provider Reason for Visit Reason Comments Foot Ulcer WOUND CHECK Auth/Cert Specialty Diagnoses / Procedures Referred By Contact Refer red To Contact Diagnoses Critical lower limb ischemia CELLULITIS RT FOOT Procedures EMERGENCY Referral ID Status Reason Start Date Expiration Date Visits Requ ested Visits Authorized [id number] 1 1 Encounter Details Date Type Department Care Team Description 08/06/2017 [facility] lower limb [facility] [place] VASCULAR SURGERY [address] [place] [address] [phone] Social History Tobacco Use Types Packs/Day Years [...] Smith MD - 08/06/2017 1:00 PM EST [facility] staff: 1. RIGHT leg CLI [...] Description 05/28/2022 Appointment Cardiology Zluma Dolan MD [facility] [address], [place] [address] (Wo ) 05/28/2022 Laboratory Appointment Lab 05/28/2022 Office Visit Cardiology Zulma Dolan MD [facility] [place] [address] Liz Poole PA [facility] [place] [address] 06/10/2022 Office Visit Dermatology Laura Scherer MD [facility] ER [address] [place], [place] [address] (Wo rk) documented as of this encounter Visit Diagnoses Diagnosis Critical lower limb ischemia Unspecified circulatory system disorder documented in this encounter Care Teams Mounter Clarinets Relationship Specialty Start Date End Date Lovely Vicente MD PCP - General 04/16/[address] [place], [place] [address] documented as of this encounter
--- OUTSIDE RECORDS SUMMARY | 2022-05-15 08:26 | XMS_ITS | Encounter Summary ---
:1945 Author Organization [facility] [place] [address] Care Team Providers Name Role Phone Lovely Vicente MD Primary Care Provider Reason for Visit Auth/Cert Specialty Diagnoses / Procedures Referred By Contact Refer red To Contact Diagnoses Critical lower limb ischemia CELLULITIS RT FOOT Procedures EMERGENCY Referral ID Status Reason Start Date Expiration Date Visits Requ ested Visits Authorized [id number] 1 1 Encounter Details Date Type Department Care Team Description 08/06/2017 Hospital En[facility] [place] [address] Social History Tobacco Use Types Packs/Day [...] Dolan MD [facility] [address] [place], [place] [address] (Wo rk) 05/28/2022 Laboratory Appointment Lab 05/28/2022 Office Visit Cardiology Zulma Dolan MD [facility] [place] [address] Liz Poole PA [facility] [place] [address] 06/10/2022 Office Visit Dermatology Laura Scherer MD [facility] [address] [place], [place] [address] (Wo rk) documented as of this encounter Visit Diagnoses Not on filedocumented in this encounter Care Teams Door Repairman Relationship Specialty Start Date End Date Lovely Vicente MD PCP - General 04/16/[address] [place] [address] documented as of this encounter
--- OUTSIDE RECORDS SUMMARY | 2022-05-15 08:26 | XMS_ITS | Encounter Summary ---
:1945 Author Organization [facility] [place] [address] Care Team Providers Name Role Phone Lovely Vicente MD Primary Care Provider Reason for Visit Reason Comments Foot Pain Auth/Cert Specialty Diagnoses / Procedures Referred By Contact Refer red To Contact Diagnoses Ischemic foot Procedures NAYE OBSVO Referral ID Status Reason Start Date Expiration Date Visits Requ ested Visits Authorized [id number] 1 1 Encounter Details Date Type Department Care Team Description 07/27/2017 Emergency 1 [facility] Lokesh Swenson MD [facility] [place] [address] Femoral artery pseudo-aneurysm, right; [facility] Tam Bauman MD [facility] [place] [address] [place] [address] Social History Tobacco Use Types Packs/Day [...] Gregory Fatima Patient Age: 72 y.o. Language: Angolan Race: White Ethnicity: Not nor Admit date: [...] please contact your inpatient physician through the [facility] [employer] [employer] . Issues after hours and on weekends [...] RLE critical limb ischemia, who presented to [facility] with worsening RLE pain. Pt post-op course after CABG was significant for paroxysmal Afib, and he was started on Coumadin given elevated [id number] score. He presented 2 weeks following that, on 07/20, with RLE pain/pallor andwas found to have critical limb ischemia in setting of subtherapeutic INR, pseudoaneurysm Rt DIRECTOR OF HEALTH EDUCATION and occlusion b/l ant tibial arteries. He [...] in the last 7068 hours. Invalid input(s): [id number] Recent Labs 07/08/17 0400 07/07/17 0515 07/06/17 [...] (it was low at 1.6 here at [facility]) 7. Use the tramadol if dilaudid or tylenol is not working 8. Stop taking the potassium supplement - your blood potassium level was elevated. Ask your doctors at future visits if this should be restarted. 9. Antibiotic for 5 days recommended by cardiothoracic surgery for chest wound drainage Follow-Up Appointments Vascular surgery as previously schedule Your Inpatient Doctor(s) at [facility]: CARLOS ALBERTO ROSALES MD General Instructions None Future Appointments and Orders Future Appointments Provider Department Dept Phone 07/30/2017 8:30 AM OSWALDO, THREE L Lab 3L [facility] [phone] 07/30/2017 9:40 AM Danette Maxwell APRN Cardiology at [place] [phone] 08/04/2017 1:00 PM Daniele Mooney [place] V[facility] [place] [phone] 08/04/2017 2:15 PM Arik Clement MD Vascular Surgery at [place] [phone] 08/11/2017 10:00 AM [facility] ROOM 2 XRay at [place] [phone] Please go to Account Officer Area 3T ([place] Location). 08/11/2017 11:00 AM Yuan Retana MD Cardiac Surgery at [place] [phone] 09/07/2017 3:00 PM LAB, THREE L Lab 3L [facility] [phone] 09/07/2017 4:00 PM Luz Prescott MD Endocrinology at [place] [phone] Discharge References/Attachments None documented in this encounter [...] (it was low at 1.6 here at [facility]) 3. Use the tramadol if dilaudid or tylenol is not working 4. Stop taking the potassium supplement - your blood potassium level was elevated. Ask your doctors at future visits if this should be restarted. 5. Antibiotic for 5 days recommended by cardiothoracic surgery for chest wound drainage Follow-Up Appointments Vascular surgery as previously schedule Your Inpatient Doctor(s) at [facility]: CARLOS ALBERTO ROSALES MD documented in this [...] as of this encounter Progress Notes Isidro Lopze PA - 07/27/2017 3:07 PM EST Cardiac [...] Gas) No results found for: PHART, PO2ART, JLD7XEU Assessment/Plan: 72 y.o. male s/p CABG in [...] intervention: Education Nutrition Recommendations: Recommend continuation of [facility], CHO2 diet order Patient and denied need [...] Orders Diet Daily Healthy Menu Choices/Cardiac diet ([facility]-Diet) 60/ CHO counting level 2 Frequency: Effective Now Number of Occurrences: Until Specified Admit Weight: 83.92 kg Estimated body mass index is 28.13 kg/(m^2) as calculated from the following: Height as of this encounter: 172.7 cm (5' 8). Weight as of this encounter: 83.9 kg (185 lb). Roebling body weight: 68.4 kg (150 lb 12.7 [...] RLE critical limb ischemia, who presented to [facility] with worsening RLE pain. Visited with patient [...] spent >30 minutes (Day of Discharge Code 49197) involved in the final examination of the [...] Melanoma ID: 72 y.o. Male presents to [facility] with persistent pain b/l lower extremities History of Present Illness: HPI 72 y.o. male with PMH ASCVD s/p CABG (07/07/17), MARIA VICTORIA on CPAP QHS, HTN, HLD, DM2, with recent hospitalization for RLE critical limb ischemia, who presented to [facility] with worsening RLE pain. Pt post-op course after CABG was significant for paroxysmal Afib, and he was started on Coumadin given elevated [id number] score. He presented 2 weeks following that, on 07/20, with RLE pain/pallor andwas found to have critical limb ischemia in setting of subtherapeutic INR, pseudoaneurysm Rt DIRECTOR OF HEALTH EDUCATION and occlusion b/l ant tibial arteries. He [...] ARTERIAL GRAFT (WRVU 7.93) performed by Yuan eRtana MD at [facility] ??? [...] [facility] Prior To Admission Medications: [...] Procedure Component Value Units Date/Time Blood culture [[id number]] Collected: 07/09/1739 Lab Status: Final result Specimen: Blood from Arm, Right Updated: 07/14/17701 Blood Culture No growth at 5 days. Blood culture [[id number]] Collected: 07/09/170 Lab Status: Final result Specimen: [...] limb ischemia following CABG, who presented to [facility] ED from home with persistent B/L LE [...] continued Diet Daily Healthy Menu Choices/Cardiac diet ([facility]-Diet) 60/60/75 CHO counting level 2Cardiac, low salt, CHO 2 Discharge planning Pending improvement in pain control PT/OT/Speech PT ordered Lines/Access PIV Ocasio catheter No DVT/GI Prophylaxis Lovenox bridge to Coumadin, SCD. Code status Full Code Family PCP Lovely Vicente MD [phone] Attestation Please see my note for details [...] encounter Miscellaneous Notes Plan of Care - Rough And Ready-Joyce Damian, PT - 07/27/2017 3:26 PM EST [...] Anticipated Discharge Disposition: home with assist Pager: [phone] JOYCE KING, PT Inpatient Physical Therapy 2017 [...] patient's evaluation including the following functional test(s) [facility]. Current ability measures, co-morbidities and [...] a lovenox bridge. Mr. Fatima returns to [facility] ED tonight because of ongoing pain in [...] Mcknight MD at [facility] MEDICATIONS: No current facility-administered [...] up in clinic 1-2 weeks after discharge. [facility] Vascular Surgery Plan of Care - Jazmín [...] Zulma Dolan MD [facility] [place], [place] [address] (Wo rk) 05/28/2022 Laboratory Appointment Lab 05/28/2022 Office Visit Cardiology Zulma Dolan MD [facility] [place] [address] Liz Poole PA [facility] [place] [address] 06/10/2022 Office Visit Dermatology Laura Scherer MD [facility] [address], [place] [address] [...] section. TYPE AND SCREEN STAT 07/27/2017 12:53 ([facility]/CGP/SHANDA) AM EST BASIC METABOLIC PANEL STAT 07/27/2017 12:53 Re sults for this (NON-FASTING) AM EST procedure are in the results section. documented in this encounter Results POCT Glucose (07/27/2017 11:53 AM EST) P athologist Signature POC Glucose 175 65 - 199 [facility] mg/dL [facility] Comment: [...] Address City/State/[place] [address] Arterial Duplex Leg, Unil (07/27/2017 7:40 AM EST) Component Value Ref Test Analysis Performed At Patholo gist Range Method Time Signature VB Text Department: Vascular Surgery Lab VASCUBASE Report Patient: [id number] (GREGORY FATIMA) CPT: 81748 ICD10: I97.610;I72.4;Z09 Referring Physician: TAM BAUMAN ?? [...] previous exam done 07/20/2017. Electronically Signed by: ELZIABETH LLANOS on 2017-07-27 09:12: 52 PM VB [...] - 199 [facility] mg/dL [facility] Comment: Supplemental ranges: <140 mg/dL before meals <180 mg/dL all other times of the day Specimen Anatomical Collection Method Collection Time Receive d Time (Source) Location / / Volume Laterality Blood specimen 07/27/2017 6:51 AM 018 6:51 (specimen) EST AM EST Tam Bauman MD POINT OF CARE TEST ORDERABLE S Performing Organization Address City/[facility]/ZIP [facility] Phon e Number [address] ABORH Recheck Status (07/27/2017 [...] [facility] [address] Gold Tube HOLD (07/27/2017 12:53 AM EST) P athologist Signature Gold Hold Sample in [facility]. [facility] Specimen Anatomical Collection Method Collection Time Receive d Time (Source) Location / / Volume Laterality Blood specimen Venous Draw / 07/27/2017 12:53 07/27/19 18 1:01 (specimen) Unknown AM EST AM EST Angela Swenson MD CHEMISTRY ORDERABLES Performing Organization Address City/State/[place] [address] (ABNORMAL) Differential, Automated (07/27/2017 12:53 AM EST) Patholo gist Method Time Signature Neutrophils % 75.0 % [facility] Neutr Abs (ANC) 11.30 (H) 1.70 - [facility] 6.10 [facility] x10(3)/[facility] LABORATORY Lymphocytes % 9.9 % [facility] Lymphocytes Abs 1.5 0.9 - 3.2 [facility] x10(3)/[facility] LABORATORY Monocytes % 8.6 % [facility] Monocyte Abs 1.3 (H) 0.3 - 0.9 [facility] x10(3)/[facility] LABORATORY Eosinophils % 4.8 % [facility] Eosinophils Abs 0.7 (H) 0.0 - 0.4 [facility] x10(3)/[facility] LABORATORY Basophils % 0.8 % [facility] Basophils Abs 0.1 0.0 - 0.1 [facility] x10(3)/[facility] LABORATORY Immature Gran % 0.90 % [...] Gran Abs 0.13 (H) 0.00 - 0.04 x10(3)/[facility] LABORATORY Specimen Anatomical Collection Method Collection Time Receive d Time (Source) Location / / Volume Laterality Blood specimen 07/27/2017 12:53 8 1:00 (specimen) AM EST AM EST Resulting Agency Comment Spec In Lab Angela Swenson MD HEMATOLOGY ORDERABLES Performing Organization Address City/State/[place] [address] (ABNORMAL) Hemogram (07/27/2017 12:53 AM EST) Analysis Performed At Patho logist Time Signature WBC 15.0 (H) 4.0 - 9.5 [facility] LABORATORY RBC 3.59 (L) 4.58 - [facility] 5.54 [facility] x10(6)/[facility] LABORATORY Hemoglobin 10.3 (L) 13.7 - [facility] 16.5 gm/dL [facility] Hematocrit 32.6 (L) 40.5 - [facility] 48.5 % [facility] MCV 90.8 82.9 - [facility] 93.1 [facility] LABORATORY MCH 28.7 27.5 - [facility] 32.1 pg [facility] LABORATORY MCHC 31.6 (L) 32.0 - [facility] 35.7 gm/dL [facility] Platelets 322 145 - 357 [facility] x10(3)/[facility] RDWSD 48.7 (H) 36.0 - [facility] 45.0 [facility] LABORATORY RDWCV 14.7 (H) 11.4 - [facility] 13.8 % [facility] LABORATORY MPV 8.9 7.6 - 12.9 [facility] LABORATORY nRBC % Auto 0.0 % [facility] LABORATORY nRBC Abs Auto 0.000 0.000 - [facility] 0.000 [facility] x10(3)/[facility] LABORATORY Specimen Anatomical Collection Method Collection Time Receive d Time (Source) Location / / Volume Laterality Blood specimen 07/27/2017 12:53 8 1:00 (specimen) AM EST AM EST Resulting Agency Comment Spec In Lab Angela Swenson MD HEMATOLOGY ORDERABLES Performing Organization Address City/State/[place] [address] Antibody screen (07/27/2017 12:53 AM EST) Patholo gist Method Time Signature Ab Screen Negative [facility] LABORATORY Expires at 07/30/2017 KATALINA ZHAORYAN [id number] on: [facility] Specimen Anatomical Collection Method Collection Time Receive d Time (Source) Location / / Volume Laterality Blood specimen 07/27/2017 12:53 8 (specimen) AM EST 12:58 AM EST Resulting Agency Comment Spec In Lab Angela Swenson MD BLOOD BANK ORDERABLES Performing Organization Address City/[facility]/[place] [address] ABO/Rh Typing (07/27/2017 12:53 AM EST) P athologist Signature ABORh Type O Pos [facility] LABOR[facility]ORY Specimen Anatomical Collection Method Collection Time Receive d Time (Source) Location / / Volume Laterality Blood specimen 07/27/2017 12:53 8 (specimen) AM EST 12:58 AM EST Resulting Agency Comment Spec In Lab Angela Swesnon MD BLOOD BANK ORDERABLES Performing Organization Address City/[facility] [place] [address] (ABNORMAL) Prothrombin Time (07/27/2017 12:53 AM EST) P athologist Signature PT 19.1 (H) 11.8 - 14.0 [facility] LABORATORY [...] Organization Address City/State/[place] [address] (ABNORMAL) Basic Metabolic Panel (non-fasting) (07/27/2017 12:53 AM EST) athologist Signature Glucose Lvl 95 65 - 199 [facility] mg/dL [facility] Comment: [...] or in patients with acute kidney failure. 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
Routine documented in this encounter Care Teams Ethologist Relationship Specialty Start Date End Date Lovely Vicente MD PCP - General 04/16/15 [facility] [address] [facility] [address] [place] [address] documented as of this encounter
--- OUTSIDE RECORDS SUMMARY | 2022-05-15 08:26 | XMS_ITS | Encounter Summary ---
:1945 Author Organization [facility] [place] [address] Care Team Providers Name Role Phone Lovely Vicente MD Primary Care Provider Reason for Visit Auth/Cert Specialty Diagnoses / Procedures Referred By Contact Refer red To Contact Diagnoses Critical lower limb ischemia CELLULITIS RT FOOT Procedures EMERGENCY Referral ID Status Reason Start Date Expiration Date Visits Requ ested Visits Authorized [id number] 1 1 Encounter Details Date Type Department Care Team Description 08/04/2017 Hospital Encounter XRay at [facility] Danette Maxwell Incisional pain [address] [place] [address] Dr Gomes, REGULATORY COMPLIANCE DIRECTOR [facility] [phone] CARDIOLOGY [place], [place] [address] Social History Tobacco Use Types [...] Cardiology Zulma Dolan MD [facility] [place], [place] [address] (Wo rk) 05/28/2022 Laboratory Appointment Lab 05/28/2022 Office Visit Cardiology Zulma Dolan MD [facility] [place] [address] Liz Poole PA [facility] [place] [address] 06/10/2022 Office Visit Dermatology Laura Scherer MD [facility] [address] [place], [place] [address] (Wo rk) documented as of [...] original. EXAMINATION: XR CHEST PA AND LATERAL (T-System) CLINICAL HISTORY: Checking sternal stabi lity/assess wires [...] Daniele gutiérrez 08/04/2017 4:13 PM Danette Maxwell REGULATORY COMPLIANCE DIRECTOR IMG DX ORDERABLES documented in this encounter Visit Diagnoses Diagnosis Incisional pain Disturbance of skin sensation documented in this encounter Care Teams Garage Hand Relationship Specialty Start Date End Date Lovely Vicente MD PCP - General 04/16/[address] [place] [address] documented as of this encounter
--- OUTSIDE RECORDS SUMMARY | 2022-05-15 08:26 | XMS_ITS | Encounter Summary ---
:1945 Author Organization [facility] Address [facility] [place] [address] Care Team Providers Name Role Phone Lovely Vicente MD Primary Care Provider Reason for Visit Auth/Cert Specialty Diagnoses / Procedures Referred By Contact Refer red To Contact Diagnoses Critical lower limb ischemia CELLULITIS RT FOOT Procedures EMERGENCY Referral ID Status Reason Start Date Expiration Date Visits Requ ested Visits Authorized [id number] 1 1 Encounter Details Date Type Department Care Team Description 08/04/2017 Laboratory Lab 3L Barbara Cardiomyopathy, unspecified type; Appointment [facility] Systolic congestive heart failure, unspecified congestive heart failure chronicity; Hospital Coronary artery rupture; [facility] Ischemic cardiomyopathy; Drive Atherosclerosis of poarch co ronary artery, angina presence unspecified, unspecified whether poarch or transplanted heart; [place], [place] Essential hyper tension, malignant; [phone] 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, unspecified medical terminologist insulin use status [phone] Social History Tobacco Use Types Packs/Day Years [...] [facility] [address] [place] [address] (Wo rk) 05/28/2022 Laboratory Appointment Lab 05/28/2022 Office Visit Cardiology Zulma Dolan MD [facility] [place] [address] Liz Poole PA [facility] [place] [address] 06/10/2022 Office Visit Dermatology Laura Scherer MD [facility] ER [address] [place], [place] 0[address] (Wo rk) documented as of this encounter Procedures Procedure Name Priority Date/Time Associated Diagnosis Comme nts HEMOGRAM Routine 08/04/2017 12:55 Essential Results for this PM EST hypertension, procedure are in malignant the results section. PROTHROMBIN TIME Routine 08/04/2017 12:55 Coronary artery Resu lts for this PM EST rupture procedure are in Ischemic the results cardiomyopathy section. Atherosclerosis of poarch coronary artery, angina presence unspecified, unspecified whether poarch or transplanted heart URIC ACID Routine 08/04/2017 [...] Signature Uric Acid 7.1 3.5 - 8.5 [facility] mg/dL [facility] LABORATORY Specimen Anatomical Collection Method Collection Time Receive d Time (Source) Location / / Volume Laterality Blood specimen 08/04/2017 12:55 8 1:01 (specimen) PM EST PM EST Resulting Agency Comment Spec In Lab Lovely Vicente MD CHEMISTRY ORDERABLES Performing Organization Address City/[facility]/[place] [address] (ABNORMAL) Hemogram (08/04/2017 12:55 PM EST) Analysis Performed At Patho logist Time Signature WBC 15.8 (H) 4.0 - 9.5 [facility] x10(3)/[facility] LABORATORY RBC 3.48 (L) 4.58 - [facility] RYAN 5.54 [facility] x10(6)/[facility] LABORATORY Hemoglobin 9.9 (L) 13.7 - [facility] 16.5 gm/dL [facility] Hematocrit 31.4 (L) 40.5 - [facility] 48.5 % [facility] MCV 90.2 82.9 - [facility] 93.1 [facility] LABORATORY MCH 28.4 27.5 - [facility] 32.1 pg [facility] MCHC 31.5 (L) 32.0 - [facility] 35.7 gm/dL [facility] Platelets 310 145 - 357 [facility] x10(3)/[facility] LABORATORY RDWSD 51.8 (H) 36.0 - [facility] 45.0 [facility] LABORATORY RDWCV 15.8 (H) 11.4 - [facility] RYAN 13.8 % [facility] LABORATORY MPV 8.9 7.6 - 12.9 [facility] LABORATORY nRBC % Auto 0.0 % [facility] LABORATORY nRBC Abs Auto 0.000 0.000 - [facility] 0.000 [facility] x10(3)/[facility] LABORATORY Specimen Anatomical Collection Method Collection Time Receive d Time (Source) Location / / Volume Laterality Blood specimen 08/04/2017 12:55 8 1:01 (specimen) PM EST PM EST Resulting Agency Comment Spec In Lab Lovley Vicente MD HEMATOLOGY ORDERABLES Performing Organization Address City/State/[place] [address] (ABNORMAL) Comprehensive metabolic panel (non-fasting) (08/04/2017 12:55 PM EST) athologist Signature Glucose Lvl 208 (H) 65 - 199 [facility] mg/dL [facility] Comment: [...] or in patients with acute kidney failure. [email or web address] [email or web address] Specimen Anatomical Collection Method Collection Time Receive d Time (Source) Location / / Volume Laterality Blood specimen 08/04/2017 12:55 8 1:01 (specimen) PM EST PM EST Resulting Agency Comment Spec In Lab Lovely Vicente MD CHEMISTRY ORDERABLES Performing Organization Address City/State/ZIP Code Phon e Number [place] [id number] HOSPITAL LAB[address]ORY Drive (ABNORMAL) Hemoglobin A1c (08/04/2017 [...] into estimated average glucose values. ??Diabetes Care 2008:31(8):4755-4484. Specimen Anatomical Collection Method Collection Time Receive d Time (Source) Location / / Volume Laterality Blood specimen 08/04/2017 12:55 8 1:01 (specimen) PM EST PM EST Resulting Agency Comment Spec In Lab Lovely Vicente MD CHEMISTRY ORDERABLES Performing Organization Address [facility] [place] [address] (ABNORMAL) Prothrombin Time (08/04/2017 12:55 PM EST) P athologist Signature PT 35.4 (H) 11.8 - 14.0 [facility] LABORATORY INR 3.5 (H) 0.9 - [...] Vicente MD HEMATOLOGY ORDERABLES Performing Organization Address [facility] [place] [address] (ABNORMAL) pro-Brain Natriuretic Peptide (08/04/2017 12:55 PM EST) P athologist Signature ProBNP 3,133 (H) <=125 [facility] pg/mL [facility] Specimen Anatomical Collection Method Collection Time Receive d Time (Source) Location / / Volume Laterality Blood specimen 08/04/2017 12:55 8 1:01 (specimen) PM EST PM EST Resulting Agency Comment Spec In Lab Danette Maxwell APRN CHEMISTRY ORDERABLES Performing Organization Address City/State/[place] [address] documented in this encounter Visit Diagnoses Diagnosis Cardiomyopathy, unspecified type Systolic congestive heart failure, unspe cified congestive heart failure chronicity Coronary artery rupture Acute myocardial infarction, unspecified site, episode of care unspecified Ischemic cardiomyopathy Other specified forms of chronic ischemi c heart disease Atherosclerosis of poarch coronary arter y, angina presence unspecified, unspecified whether poarch or transplanted heart Essential hypertension, malignant Diabetes mellitus due to underlying cond ition with diabetic nephropathy, unspecified medical terminologist insulin use status documented in this encounter Care Teams Financial Services Manager Relationship Specialty Start Date End Date Lovely Vicente MD PCP - General 04/16/[address] [place] [address] documented as of this encounter
--- OUTSIDE RECORDS SUMMARY | 2022-05-15 08:26 | XMS_ITS | Encounter Summary ---
:1945 [place] [address] Care Team Providers Name Role Phone Lovely Vicente MD Primary Care Provider Encounter Details Date Type Department Care Team Description 08/04/2017 Notes Only Cardiac Surgery Makayla Wilson APRN [facility] [place] [address] CARDIAC SURGERY [phone] [place], [place] [address] (Wo rk) Social History [...] Dolan MD [facility] [place], [place] [address] (Wo rk) 05/28/2022 Laboratory Appointment Lab 05/28/2022 Office Visit Cardiology Zulma Dolan MD [facility] [place] [address] Liz Poole PA [facility] [place] [address] 06/10/2022 Office Visit Dermatology Laura Scherer MD [facility] [address] [place], [place] [address] (Wo rk) documented as of this encounter Visit Diagnoses Not on filedocumented in this encounter Care Teams Ground School Instructor Relationship Specialty Start Date End Date Lovely Vicente MD PCP - General 04/16/[address] [place] [address] documented as of this encounter
--- OUTSIDE RECORDS SUMMARY | 2022-05-15 08:26 | XMS_ITS | Encounter Summary ---
:1945 Author Organization [facility] [place] [address] Care Team Providers Name Role Phone Lovely Vicente MD Primary Care Provider Reason for Visit Auth/Cert Specialty Diagnoses / Procedures Referred By Contact Refer red To Contact Diagnoses Critical lower limb ischemia CELLULITIS RT FOOT Procedures EMERGENCY Referral ID Status Reason Start Date Expiration Date Visits Requ ested Visits Authorized [id number] 1 1 Encounter Details Date Type Department Care Team Description 08/04/2017 Laboratory Appointment Lab 3L [facility] [place] [address] Social History Tobacco Use Types Packs/Day [...] [facility] er [address] [place] [address] (Wo rk) 05/28/2022 Laboratory Appointment Lab 05/28/2022 Office Visit Cardiology Zulma Dolan MD [facility] [place] [address] Liz Poole PA [facility] [place] [address] 06/10/2022 Office Visit Dermatology Laura Scherer MD [facility] DR [address] [place], [place] [address] (Wo rk) documented as of this encounter Visit Diagnoses Not on filedocumented in this encounter Care Teams Sap Grc Security Relationship Specialty Start Date End Date Lovely Vicente MD PCP - General 04/16/15 [facility] [address] [place], [place] [address] documented as of this encounter
--- OUTSIDE RECORDS SUMMARY | 2022-05-15 08:26 | XMS_ITS | Encounter Summary ---
:1945 Author Organization [facility] [place] [address] Care Team Providers Name Role Phone Lovely Vicente MD Primary Care Provider Reason for Visit Auth/Cert Specialty Diagnoses / Procedures Referred By Contact Refer red To Contact Diagnoses Critical lower limb ischemia CELLULITIS RT FOOT Procedures EMERGENCY Referral ID Status Reason Start Date Expiration Date Visits Requ ested Visits Authorized [id number] 1 1 Encounter Details Date Type Department Care Team Description 08/06/2017 Clinical Support Same Day at [facility] Ischemia of foot [facility] [place] [address] Social History Tobacco Use Types Packs/Day [...] noother symptoms except severe right foot pain. [facility] clinic called as pt on [...] Dolan MD [facility] [address] [place], [place] [address] (Wo rk) 05/28/2022 Laboratory Appointment Lab 05/28/2022 Office Visit Cardiology Zulma Dolan [place] [address] Liz Poole PA [facility] [place] [address] 06/10/2022 Office Visit Dermatology Laura Scherer MD [facility] DR [address] [place], [place] [address] (Wo rk) documented as [...] 444 ms MUSE SYSTEM (Bezet) Calculated P Corder 44 degrees MUSE SYSTEM Calculated R Corder -31 degrees MUSE SYSTEM Calculated T Corder 106 degrees MUSE SYSTEM INTERPRETATION Normal sinus [...] documented in this encounter Care Teams Clinical Nutritionist Relationship Specialty Start Date End Date Lovely Vicente MD PCP - General 04/16/[address] [place] [address] documented as of this encounter
--- OUTSIDE RECORDS SUMMARY | 2022-05-15 08:26 | XMS_ITS | Encounter Summary ---
:1945 Author Organization [facility] [place] [address] Care Team Providers Name Role Phone Lovely Vicente MD Primary Care Provider Reason for Visit Auth/Cert Specialty Diagnoses / Procedures Referred By Contact Refer red To Contact Diagnoses Critical lower limb ischemia CELLULITIS RT FOOT Procedures EMERGENCY Referral ID Status Reason Start Date Expiration Date Visits Requ ested Visits Authorized [id number] 1 1 Encounter Details Date Type Department Care Team Description 08/04/2017 Office Visit [place]iology [place] [facility] Danette Maxwell Incisional pain; [facility] A, CORPORATE FINANCIAL ANALYST Ischemic cardiomyopathy; [facility] ASCVD (arteriosclerotic card iovascular disease); [place], [place] Systolic heart failure, unspecified hear t failure chronicity [phone] CARDIOLOGY [phone] [place], [place] [address] Social History Tobacco Use Types [...] in this encounter Progress Notes Danette Maxwell, CORPORATE FINANCIAL ANALYST - 08/04/2017 3:00 PM EST ID [...] painful and swollen right foot right d/t [employer] W[employer]ER 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 [...] MD [facility] [place], [place] [address] (Wo rk) 05/28/2022 Laboratory Appointment Lab 05/28/2022 Office Visit Cardiology Zulma Dolan MD [facility] [place] [address] Liz Poole PA [facility] [place] [address] 06/10/2022 Office Visit Dermatology Laura Scherer MD [facility] [address] [place], [place] [address] (Wo rk) documented as of [...] sensation documented in this encounter Care Teams Casework Manager Relationship Specialty Start Date End Date Lovely Vicente MD PCP - General 04/16/[address] [place] [address] documented as of this encounter
--- OUTSIDE RECORDS SUMMARY | 2022-05-15 08:26 | XMS_ITS | Encounter Summary ---
:1945 Author Organization [facility] [place] [address] Care Team Providers Name Role Phone Lovely Vicente MD Primary Care Provider Reason for Visit Reason Comments Follow-up Encounter Details Date Type Department Care Team Description 07/29/2017 Office Visit Cardiac Surgery at [facility] Yuan Retana MD S/P CABG x [address] [facility] [place] [address] CARDIOTHORACIC SURGERY [phone] [place], [place] [address] (Wo rk) Social History [...] evaluation by vascular surgery. Yuan Retana MD [phone] documented in this encounter Plan of Treatment Upcoming Encounters Date Type Specialty Care Team Description 05/28/2022 Appointment Cardiology Zulma Dolan MD [facility] er Dr [place] [address] (Wo rk) 05/28/2022 Laboratory Appointment Lab 05/28/2022 Office Visit Cardiology Zulma Dolan MD [facility] [place] [address] Liz Poole PA [facility] [place] [address] 06/10/2022 Office Visit Dermatology Laura Scherer MD [facility] ER DR [address]MAT [place], [place] [address] (Wo rk) documented as of this encounter Visit Diagnoses Diagnosis S/P CABG x 3 Postsurgical aortocoronary bypass status documented in this encounter Care Teams Tube Man Relationship Specialty Start Date End Date Lovely Vicente MD PCP - General 04/16/[address] [place] [address] documented as of this encounter
--- OUTSIDE RECORDS SUMMARY | 2022-05-15 08:26 | XMS_ITS | Encounter Summary ---
:1945 Author Organization [facility] [place] [address] Care Team Providers Name Role Phone Lovely Vicente MD Primary Care Provider Encounter Details Date Type Department Care Team Description 07/29/2017 Transcribe Orders Laboratory Lovely Vicente MD [address] [address] [place] [address] [phone] (Wo rk) Social History Tobacco Use Types [...] [facility] er [address] [place] [address] (Wo rk) 05/28/2022 Laboratory Appointment Lab 05/28/2022 Office Visit Cardiology Zulma Dolan MD [facility] [place] [address] Liz Poole PA [facility] [place] [address] 06/10/2022 Office Visit Dermatology Laura Scherer MD [facility] ER DR [address] [place], [place] [address] (Wo rk) documented as of this encounter Visit Diagnoses Not on filedocumented in this encounter Care Teams Director Consumer Affairs Relationship Specialty Start Date End Date Lovely Vicente MD PCP - General 04/16/[address] [place] [address] documented as of this encounter
--- OUTSIDE RECORDS SUMMARY | 2022-05-15 08:26 | XMS_ITS | Encounter Summary ---
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 Hank Zhang Vascular Surgery, PGY2 Pager #[phone] Associated attestation - Arik Clement MD - [...] Cardiology Zulma Dolan MD [facility] [place], [place] [address] (Wo rk) 05/28/2022 Laboratory Appointment Lab 05/28/2022 Office Visit Cardiology Zulma Dolan [place] [address] Liz Poole PA [facility] [place] [address] 06/10/2022 Office Visit Dermatology Laura Scherer MD [facility] [address] [place], [place] [address] (Wo rk) documented as [...] Department: Vascular Surgery Lab VASCUBASE Report Patient: [id number] (GREGORY FATIMA) CPT: 26807 ICD10: I82.541 Referring Physician: TAMIKO JIMÉNEZ ?? [...] 128 65 - 199 [facility] mg/dL [facility] LABORATORY [...] Address City/State/ZIP Code Phon e Number [address] (ABNORMAL) D-Dimer, Quantitative (07/29/2017 2:15 PM EST) [facility] Oculus360 Method Time Signature D-Dimer, Quant 1,699 (H) 0 - 500 [facility] FEU ng/ml [facility] LABORATORY Comment: The D-Dimer assay is [...] Address City/State/[place] [address] (ABNORMAL) Differential, Automated (07/29/2017 2:15 PM EST) [facility] Oculus360 Method Time Signature Neutrophils % 82.5 % [facility] LABORATORY Neutr Abs (ANC) 10.21 (H) 1.70 - [facility] 6.10 [facility] x10(3)/[facility] L LABORATORY Lymphocytes % 7.1 % [facility] LABORATORY Lymphocytes Abs 0.9 0.9 - 3.2 [facility] x10(3)/[facility] LABORATORY Monocytes % 6.5 % [facility] LABORATORY Monocyte Abs 0.8 0.3 - 0.9 [facility] x10(3)/[facility] LABORATORY Eosinophils % 2.7 % [facility] LABORATORY Eosinophils Abs 0.3 0.0 - 0.4 [facility] x10(3)/[facility] LABORATORY Basophils % 0.6 % [facility] LABORATORY Basophils Abs 0.1 0.0 - 0.1 [facility] x10(3)/[facility] LABORATORY Immature Gran % 0.60 [...] Abs 0.08 (H) 0.00 - 0.04 x10(3)/[facility] LABORATORY Specimen Anatomical Collection Method Collection Time Receive d Time (Source) Location / / Volume Laterality Blood specimen 07/29/2017 2:15 PM 018 2:36 (specimen) EST PM EST Resulting Agency Comment Spec In Lab Tamiko Jiménez MD HEMATOLOGY ORDERABLES Performing Organization Address City/State/[place] [address] (ABNORMAL) Hemogram (07/29/2017 2:15 PM EST) Analysis Performed At Patho logist Time Signature WBC 12.4 (H) 4.0 - 9.5 [facility] x10(3)/[facility] LABORATORY RBC 4.17 (L) 4.58 - [facility] 5.54 [facility] x10(6)/[facility] LABORATORY Hemoglobin 12.1 (L) 13.7 - [facility] 16.5 gm/dL [facility] LABORATORY Hematocrit 38.1 (L) 40.5 - [facility] 48.5 % [facility] LABORATORY MCV 91.4 82.9 - [facility] 93.1 [facility] LABORATORY MCH 29.0 27.5 - [facility] 32.1 pg [facility] LABORATORY MCHC 31.8 (L) 32.0 - [facility] RYAN 35.7 gm/dL [facility] LABORATORY Platelets 204 145 - 357 [facility] x10(3)/[facility] LABORATORY RDWSD 50.5 (H) 36.0 - [facility] 45.0 [facility] LABORATORY RDWCV 15.3 (H) 11.4 - [facility] RYAN 13.8 % [facility] LABORATORY MPV 9.4 7.6 - 12.9 [facility] LABORATORY nRBC % Auto 0.0 % [facility] LABORATORY nRBC Abs Auto 0.000 0.000 - [facility] 0.000 [facility] x10(3)/[facility] LABORATORY Specimen Anatomical Collection Method Collection Time Receive d Time (Source) Location / / Volume Laterality Blood specimen 07/29/2017 2:15 PM 018 2:36 (specimen) EST PM EST Resulting Agency Comment Spec In Lab Tamiko Jiménez MD HEMATOLOGY ORDERABLES Performing Organization Address City/State/[place] [address] (ABNORMAL) Prothrombin Time (07/29/2017 2:15 PM EST) P athologist Signature PT 24.4 (H) 11.8 - 14.0 [facility] LABORATORY INR 2.2 (H) 0.9 - [...] City/State/ZIP Code Phon e Number [place] [id number] HOSPITAL LABORATORY Drive Arterial Duplex Leg, Unil (07/29/2017 11:50 AM EST) Component Value Ref Test Analysis Performed At [facility] Range Method Time Signature VB Text Department: Vascular Surgery Lab VASCUBASE Report Patient: [id number] (GREGORY FATIMA) CPT: 57300 ICD10: Z09;I97.610 Referring Physician: TAMIKO JIMÉNEZ ?? [...] Department: Vascular Surgery Lab VASCUBASE Report Patient: [id number] (GREGORY FATIMA) CPT: 61798 ICD10: I82.441 Referring Physician: TAMIKO JIMÉNEZ ?? [...] he calf. Notification: Marquis Pathak MD (pager #[phone]) was notif ied of the preliminary findings. Comparison: ??No previous study in our vascular lab da tabase for comparison. Electronically Signed by: LAI STERN on 2017-07-29 02:09:56 PM VB Text [...] STAT documented in this encounter Care Teams Professor Of Chemical Engineering Relationship Specialty Start Date End Date Lovely Vicente MD PCP - General 04/16/[address] [place] [address] [address] [place] [address] documented as of this encounter
--- OUTSIDE RECORDS SUMMARY | 2022-05-15 08:26 | XMS_ITS | Encounter Summary ---
:1945 Author Organization [facility] [place] [address] Care Team Providers Name Role Phone Lovely Vicente MD Primary Care Provider Reason for Visit Auth/Cert Specialty Diagnoses / Procedures Referred By Contact Refer red To Contact Diagnoses Critical lower limb ischemia CELLULITIS RT FOOT Procedures EMERGENCY Referral ID Status Reason Start Date Expiration Date Visits Requ ested Visits Authorized [id number] 1 1 Encounter Details Date Type Department Care Team Description 08/06/2017 Laboratory Appointment Lab [place] [facility] [place]schem[place] of foot [facility] [place] [address] Social History Tobacco Use Types Packs/Day [...] [facility] [place] [address] [place] [address] (Wo rk) 05/28/2022 Laboratory Appointment Lab 05/28/2022 Office Visit Cardiology Zulma Dolan MD [facility] [place] [address] Liz Poole PA [facility] [place] [address] 06/10/2022 Office Visit Dermatology Laura Scherer MD [facility] ER [address]-DERMAT [facility] [place] [place] [address] (Wo rk) documented as of [...] Signature Prealbumin 19 (L) 20 - 40 [facility] mg/dL [facility] [...] Organization Address City/State/[place] [address] (ABNORMAL) Basic Metabolic Panel (non-fasting) (08/06/2017 12:32 PM EST) P athologist Signature Glucose Lvl 92 65 - 199 [facility] mg/dL [facility] [...] or in patients with acute kidney failure. http://Smarterphone/DHnkdep http://Smarterphone/DHMCnkf Specimen Anatomical Collection Method Collection Time Receive d Time (Source) Location / / Volume Laterality Blood specimen 08/06/2017 12:32 8 1:15 (specimen) PM EST PM EST Resulting Agency Comment Spec In Lab Arik Clement MD CHEMISTRY ORDERABLES Performing Organization Address City/State/[place] [address] (ABNORMAL) Hemogram (08/06/2017 12:32 PM EST) Analysis Performed At Patho logist Time Signature WBC 11.8 (H) 4.0 - 9.5 [facility] x10(3)/[facility] LABORATORY RBC 3.49 (L) 4.58 - [facility] 5.54 [facility] x10(6)/[facility] LABORATORY Hemoglobin 9.9 (L) 13.7 - [facility] 16.5 gm/dL [facility] LABORATORY Hematocrit 32.0 (L) 40.5 - [facility] 48.5 % [facility] LABORATORY MCV 91.7 82.9 - [facility] 93.1 [facility] LABORATORY MCH 28.4 27.5 - [facility] 32.1 pg [facility] LABORATORY MCHC 30.9 (L) 32.0 - [facility] 35.7 gm/dL [facility] LABORATORY Platelets 326 145 - 357 [facility] x10(3)/[facility] LABORATORY RDWSD 53.4 (H) 36.0 - [place] 45.0 [facility] LABORATORY RDWCV 16.0 (H) 11.4 - [place] R[facility] 13.8 % [facility] LABORATORY MPV 9.1 7.6 - 12.9 [facility] LABORATORY nRBC % Auto 0.0 % [facility] LABORATORY nRBC Abs Auto 0.000 0.000 - [place] 0.000 [facility] x10(3)/[facility] LABORATORY Specimen Anatomical Collection Method Collection Time Receive d Time (Source) Location / / Volume Laterality Blood specimen 08/06/2017 12:32 8 1:15 (specimen) PM EST PM EST Resulting Agency Comment Spec In Lab Arik Clement MD HEMATOLOGY ORDERABLES Performing Organization Address City/State/ZIP Code Phon e Number [place] [phone] documented in this encounter Visit Diagnoses Diagnosis Ischemia of foot Unspecified circulatory system disorder documented in this encounter Care Teams Electronic Intelligence Officer Relationship Specialty Start Date End Date Lovely Vicente MD PCP - General 04/16/[address] [place] [address] documented as of this encounter
--- OUTSIDE RECORDS SUMMARY | 2022-05-15 08:26 | XMS_ITS | Encounter Summary ---
:1945 Author Organization [facility] [place] [address] Care Team Providers Name Role Phone Lovely Vicente MD Primary Care Provider Encounter Details Date Type Department Care Team Description 08/03/2017 Telephone Pain Management at [facility] [place], [place] [address] Social History Tobacco Use Types Packs/Day [...] Management Center Preauthorization Request Patient: Don Fatima [id number] Fax received from [facility] requesting we obtain prior authorization for Lidocaine Patches prescribed by Barbra Soares APRN. RX insurance plan: [facility] insurance telephone: [phone] Patient ?? Diagnosis: right foot pain secondary to PVD and ischemia ?? Previous medications attempted: Tylenol, Tramadol, Dilaudid Authorization/Reference number: [id number], PBP Code 801 _x_ denied, provider and patient informed _x_ appeal initiated by provider, patient informed Angeles Rodrigez, RN documented in this encounter Plan of Treatment Upcoming Encounters Date Type Specialty Care Team Description 05/28/2022 Appointment Cardiology Zulma Dolan MD [facility] [place], [place] [address] (Wo rk) 05/28/2022 Laboratory Appointment Lab 05/28/2022 Office Visit Cardiology Zulma Dolan MD [facility] [place] [address] Liz Poole PA [facility] [place] [address] 06/10/2022 Office Visit Dermatology Laura Scherer MD [facility] DR [address] [place], [place] [address] (Wo rk) documented as of this encounter Visit Diagnoses Not on filedocumented in this encounter Care Teams Plant Safety Engineer Relationship Specialty Start Date End Date Lovely Vicente MD PCP - General 04/16/[address] [place] [address] documented as of this encounter
--- OUTSIDE RECORDS SUMMARY | 2022-05-15 08:26 | XMS_ITS | Encounter Summary ---
:1945 [place] [address] Care Team Providers Name Role Phone Lovely Vicente MD Primary Care Provider Encounter Details Date Type Department Care Team Description 08/03/2017 Hospital Encounter Radiology Library at [place], Tommy Mijares [facility] [place] [address] VASCULAR SURGERY [phone] [place], [place] [address] (Wo rk) Social History Tobacco [...] Dolan MD [facility] Dr [place], [place] [address] (Wo rk) 05/28/2022 Laboratory Appointment Lab 05/28/2022 Office Visit Cardiology Zulma Dolan MD [facility] [place] [address] Liz Poole PA [facility] [place] [address] 06/10/2022 Office Visit Dermatology Laura Scherer MD [facility] DR [address]DERMAT [place], [place] [address] (Wo rk) documented as of [...] Laterality Volume Narrative [facility] - 08/03/2017 6:03 PM EST This exam is for storage only and is aut o-finalizing. Arik Clement MD G FILM LIBRARY ORDERABLES Performing Organization Address City/State/ZIP Code Phon e Number [place], [place] documented in this encounter Visit Diagnoses Diagnosis Pain Generalized pain documented in this encounter Care Teams Soil Biology Teacher Relationship Specialty Start Date End Date Lovely Vicente MD PCP - General 04/16/[address] [place] [address] documented as of this encounter
--- OUTSIDE RECORDS SUMMARY | 2022-05-15 08:26 | XMS_ITS | Encounter Summary ---
:1945 Author Organization [facility] [place] [address] Care Team Providers Name Role Phone Lovely Vicente MD Primary Care Provider Reason for Visit Auth/Cert Specialty Diagnoses / Procedures Referred By Contact Refer red To Contact Diagnoses Critical lower limb ischemia CELLULITIS RT FOOT Procedures EMERGENCY Referral ID Status Reason Start Date Expiration Date Visits Requ ested Visits Authorized [id number] 1 1 Encounter Details Date Type Department Care Team Description 08/04/2017 [facility] Barbara Flower MA thrombosis of [facility] [place] [phone] Social History Tobacco Use Types Packs/Day Years [...] Zulma Dolan MD [facility] [place], [place] [address] (Wo rk) 05/28/2022 Laboratory Appointment Lab 05/28/2022 Office Visit Cardiology Zulma Dolan MD [facility] [place] [address] Liz Poole PA [facility] [place] [address] 06/10/2022 Office Visit Dermatology Laura Scherer MD [facility] DR [address]MAT [place], [place] [address] (Wo rk) documented as of [...] Department: Vascular Surgery Lab VASCUBASE Report Patient: [id number] (DON HOANG) CPT: 69952 ICD10: I82.541 Referring Physician: MEÑO UHTSON ?? Indications: f/u of R thromb us [...] extremity documented in this encounter Care Teams Vocal Music Teacher Relationship Specialty Start Date End Date Lovely Vicente MD PCP - General 04/16/[address] [place] [address] documented as of this encounter
--- OUTSIDE RECORDS SUMMARY | 2022-05-15 08:26 | XMS_ITS | Encounter Summary ---
:1945 Author Organization [facility] [place] [address] Care Team Providers Name Role Phone Lovely Vicente MD Primary Care Provider Encounter Details Date Type Department Care Team Description 08/02/2017 Telephone Pain Management at [place], [place] [address] Social History Tobacco Use Types Packs/Day [...] Management Center Preauthorization Request Patient: Don Fatima [id number] Fax received from [facility] requesting we obtain prior authorization for Lidocaine patches prescribed by Barbra Soares APRN. RX insurance plan: [employer] insurance telephone: [phone] Patient Diagnosis: right foot pain secondary to PVD and ischemia Previous medications attempted: Tylenol, Tramadol, Dilaudid The following action was taken after discussion with the guest service agent: _x_ pharmacy informed Authorized dosage or amount: 5% on patch on for 12 hours, then remove for 12 hours. Angeles Rodrigez, RN documented in this encounter Plan of Treatment Upcoming Encounters Date Type Specialty Care Team Description 05/28/2022 Appointment Cardiology Zulma Dolan MD [facility] [place], [place] [address] (Wo rk) 05/28/2022 Laboratory Appointment Lab 05/28/2022 Office Visit Cardiology Zulma Dolan MD [facility] [place] [address] Liz Poole PA [facility] [place] [address] 06/10/2022 Office Visit Dermatology Laura Scherer MD [facility] [address] [place], [place] [address] (Wo rk) documented as of this encounter Visit Diagnoses Not on filedocumented in this encounter Care Teams Human Resources Designate Relationship Specialty Start Date End Date Lovely Vicente MD PCP - General 04/16/[address] [place] [address] documented as of this encounter
--- OUTSIDE RECORDS SUMMARY | 2022-05-15 08:26 | XMS_ITS | Encounter Summary ---
:1945 Author Organization [facility] Address [facility] [place] [address] Care Team Providers Name Role Phone Lovely Vicente MD Primary Care Provider Encounter Details Date Type Department Care Team Description 07/29/2017 Transcribe Orders Laboratory Lovely Vicente, Coronary artery rupture; 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, unspecified mcfp insulin use status [phone] Social History Tobacco Use Types Packs/Day Years [...] Dolan MD [facility] er Dr [place], [place] [address] (Wo rk) 05/28/2022 Laboratory Appointment Lab 05/28/2022 Office Visit Cardiology Zluma Dolan MD [facility] [place] [address] Liz Poole PA [facility] [place] [address] 06/10/2022 Office Visit Dermatology Laura Scherer MD [facility] ER DR [address]DERMAT [place], [place] [address] (Wo rk) Scheduled Orders Name Type Priority Associated Diagnoses Order S chedule Lab Use Only, Fax Lab Routine Coronary arter y rupture Expected: 07/29/2017 Request Ischemic cardiom yopathy (Approximate), Atherosclerosis of elim ira Ex jose: 07/29/2018 coronary artery, angina presence unspecified, unspecified whether elim ira or transplanted heart Essential hypertension, malignant documented as of this encounter Results Uric acid (08/04/2017 12:55 PM EST) P athologist Signature Uric Acid 7.1 3.5 - 8.5 [facility] mg/dL [facility] LABORATORY Specimen Anatomical Collection Method Collection Time Receive d Time (Source) Location / / Volume Laterality Blood specimen 08/04/2017 12:55 8 1:01 (specimen) PM EST PM EST Resulting Agency Comment Spec In Lab Lovely Vicente MD CHEMISTRY ORDERABLES Performing Organization Address City/State/[place] [address] (ABNORMAL) Hemogram (08/04/2017 12:55 PM EST) Analysis Performed At Patho logist Time Signature WBC 15.8 (H) 4.0 - 9.5 [facility] x10(3)/[facility] LABORATORY RBC 3.48 (L) 4.58 - [facility] 5.54 [facility] x10(6)/[facility] LABORATORY Hemoglobin 9.9 (L) 13.7 - [facility] 16.5 gm/dL [facility] LABORATORY Hematocrit 31.4 (L) 40.5 - [facility] 48.5 % [facility] LABORATORY MCV 90.2 82.9 - [facility] 93.1 [facility] LABORATORY MCH 28.4 27.5 - [place] RYAN 32.1 pg [facility] LABORATORY MCHC 31.5 (L) 32.0 - [facility] ZHAORYAN 35.7 gm/dL [facility] LABORATORY Platelets 310 145 - 357 [facility] x10(3)/[facility] LABORATORY RDWSD 51.8 (H) 36.0 - [place] RYAN 45.0 [facility] LABORATORY RDWCV 15.8 (H) 11.4 - [facility] 13.8 % [facility] LABORATORY MPV 8.9 7.6 - 12.9 [facility] LABORATORY nRBC % Auto 0.0 % [facility] LABORATORY nRBC Abs Auto 0.000 0.000 - [facility] 0.000 [facility] x10(3)/[facility] LABORATORY Specimen Anatomical Collection Method Collection Time Receive d Time (Source) Location / / Volume Laterality Blood specimen 08/04/2017 12:55 8 1:01 (specimen) PM EST PM EST Resulting Agency Comment Spec In Lab Lovely Vicente MD HEMATOLOGY ORDERABLES Performing Organization Address City/State/ZIP Code Phon e Number [place] [phone] (ABNORMAL) Comprehensive metabolic panel (non-fasting) (08/04/2017 12:55 PM EST) P athologist Signature Glucose Lvl 208 (H) 65 - 199 [facility] mg/dL [facility] LABORATORY Comment: Diabetes: >=200 mg/dL [...] HOSPITAL LABORATORY Estimated GFR 43 (L) >=60 [facility] LABORATORY Comment: The reported eGFR should be multiplied b y 1.2 for patients. The MDRD is not an appropriate measure o f renal function for patients with body mass extremes or in patients with acute kidney failure. http://[employer]/DHnkdep http://[employer]/DHMCnkf Specimen Anatomical Collection Method Collection Time Receive d Time (Source) Location / / Volume Laterality Blood specimen 08/04/2017 12:55 8 1:01 (specimen) PM EST PM EST Resulting Agency Comment Spec In Lab Lovely Vicente MD CHEMISTRY ORDERABLES Performing Organization Address City/State/[place] [address] (ABNORMAL) Hemoglobin A1c (08/04/2017 12:55 PM EST) Analysis Performed At Patho logist Time Signature Hemoglobin A1C 6.2 (H) 4.3 - 5.6 [facility] Avg Gluc See note mg/dL [facility] [address] [facility] LABORATORY Comment: Estimated Average Glucose not [...] hemoglobinopathies. Additional resources are available on united health services ADA website. Macario HAMMOND, Ruthann J, Deysi R, et al. ??Tr anslating the A1C assay into estimated average glucose values. ??Diabetes Care 2008:31(8):0451-9200. Specimen Anatomical Collection Method Collection Time Receive d Time (Source) Location / / Volume Laterality Blood specimen 08/04/2017 12:55 8 1:01 (specimen) PM EST PM EST Resulting Agency Comment Spec In Lab Lovely Vicente MD CHEMISTRY ORDERABLES Performing Organization Address City/State/[place] [address] (ABNORMAL) Prothrombin Time (08/04/2017 [...] Organization Address City/State/[place] [address] documented in this encounter Visit Diagnoses Diagnosis Coronary artery rupture Acute myocardial infarction, unspecified site, episode of care unspecified Ischemic cardiomyopathy Other specified forms of chronic ischemi c heart disease Atherosclerosis of elim ira coronary arter y, angina presence unspecified, unspecified whether elim ira or transplanted heart Essential hypertension, malignant Diabetes mellitus due to underlying cond ition with diabetic nephropathy, unspecified mcfp insulin use status documented in this encounter Care Teams Corporate Development Officer Relationship Specialty Start Date End Date Lovely Vicente MD PCP - General 04/16/[address] [place] [address] documented as of this encounter
--- OUTSIDE RECORDS SUMMARY | 2022-05-15 08:26 | XMS_ITS | Encounter Summary ---
:1945 [place] [address] Care Team Providers Name Role Phone Lovely Vicente MD Primary Care Provider Encounter Details Date Type Department Care Team Description 07/29/2017 Telephone Pain Aurelia Crawford MD [facility] [place] [address] PAIN CLINIC [phone] [place], [place] [address] (Wo rk) Social History Tobacco [...] Dolan MD [facility] [place], [place] [address] (Wo rk) 05/28/2022 Laboratory Appointment Lab 05/28/2022 Office Visit Cardiology Zulma Dolan MD [facility] [place] [address] Liz Poole PA [facility] [place] [address] 06/10/2022 Office Visit Dermatology Laura Scherer MD [facility] DR [address] [place], [place] [address] (Wo rk) documented as of this encounter Visit Diagnoses Not on filedocumented in this encounter Care Teams Physical Instructor Relationship Specialty Start Date End Date Lovely Vicente MD PCP - General 04/16/[address] [place] [address] [address] [place] [address] documented as of this encounter
--- OUTSIDE RECORDS SUMMARY | 2022-05-15 08:26 | XMS_ITS | Encounter Summary ---
:1945 Author Organization [facility] [place] [address] Care Team Providers Name Role Phone Lovely Vicente MD Primary Care Provider Encounter Details Date Type Department Care Team Description 08/04/2017 Orders Only Cardiac Surgery Makayla Wilson APRN [facility] [place] [address] CARDIAC SURGERY [phone] [place] [address] (Wo rk) Social History [...] MD [facility] er [place] [address] (Wo rk) 05/28/2022 Laboratory Appointment Lab 05/28/2022 Office Visit Cardiology Zulma Dolan MD [facility] [place] [address] Liz Poole PA [facility] [place] [address] 06/10/2022 Office Visit Dermatology Laura Scherer MD [facility] ER DR [address]DERMAT [place], [place] [address] (Wo rk) documented as of this encounter Visit Diagnoses Not on filedocumented in this encounter Care Teams Wood Panel Inspector Relationship Specialty Start Date End Date Lovely Vicente MD PCP - General 04/16/[address] [place] [address] documented as of this encounter
--- OUTSIDE RECORDS SUMMARY | 2022-05-15 08:26 | XMS_ITS | Encounter Summary ---
:1945 Author Organization [facility] [place] [address] Care Team Providers Name Role Phone Lovely Vicente MD Primary Care Provider Encounter Details Date Type Department Care Team Description 08/06/2017 Orders Only Vascular Surgery at [facility] [place] APRN Ischemia of foot [facility]3] [place] [address] VASCULAR SURGERY [phone] [place], [place] [address] (Wo rk) Social History [...] MD [facility] [place] [address] (Wo rk) 05/28/2022 Laboratory Appointment Lab 05/28/2022 Office Visit Cardiology Zulma Dolan MD [facility] [place] [address] Liz Poole PA [facility] [place] [address] 06/10/2022 Office Visit Dermatology Laura Scherer MD [facility] ER DR TEJA [address] [place], [place] [address] (Wo rk) documented as of [...] 444 ms MUSE SYSTEM (Bezet) Calculated P [place] 44 degrees MUSE SYSTEM Calculated R [place] -31 degrees MUSE SYSTEM Calculated T [place] 106 degrees MUSE SYSTEM INTERPRETATION Normal sinus [...] (L) 20 - 40 KATALINA RYAN mg/dL [facility] Comment: Prealbumin levels are generally [...] Organization Address City/State/[place] [address] (ABNORMAL) Basic Metabolic Panel (non-fasting) (08/06/2017 12:32 PM EST) athologist Signature Glucose Lvl 92 65 - 199 [facility] mg/dL [facility] Comment: [...] mg/dL [facility] Estimated GFR 53 (L) >=60 [facility] Comment: The reported eGFR should be multiplied b y 1.2 for patients. The MDRD is not an appropriate measure o f renal function for patients with body mass extremes or in patients with acute kidney failure. http://Fit Steps/DHnkdep http://Fit Steps/DHMCnkf Specimen Anatomical Collection Method Collection Time Receive d Time (Source) Location / / Volume Laterality Blood specimen 08/06/2017 12:32 8 1:15 (specimen) PM EST PM EST Resulting Agency Comment Spec In Lab Arik Clement MD CHEMISTRY ORDERABLES Performing Organization Address City/State/[place] [address] (ABNORMAL) Hemogram (08/06/2017 12:32 PM EST) Analysis Performed At Patho logist Time Signature WBC 11.8 (H) 4.0 - 9.5 [facility] x10(3)/[facility] LABORATORY RBC 3.49 (L) 4.58 - [facility] 5.54 [facility] x10(6)/[facility] LABORATORY Hemoglobin 9.9 (L) 13.7 - [facility] 16.5 gm/dL [facility] Hematocrit 32.0 (L) 40.5 - [facility] 48.5 % [facility] MCV 91.7 82.9 - [facility] 93.1 [facility] LABORATORY MCH 28.4 27.5 - [facility] 32.[address] [facility] MCHC 30.9 (L) 32.0 - [facility] 35.7 gm/dL [facility] Platelets 326 145 - 357 [facility] x10(3)/[facility] LABORATORY RDWSD 53.4 (H) 36.0 - [facility] 45.0 [facility] LABORATORY RDWCV 16.0 (H) 11.4 - [facility] 13.8 % [facility] MPV 9.1 7.6 - 12.9 [facility] LABORATORY nRBC % Auto 0.0 % [facility] nRBC Abs Auto 0.000 0.000 - [facility] 0.000 [facility] x10(3)/[facility] LABORATORY Specimen Anatomical Collection Method Collection Time Receive d Time (Source) Location / / Volume Laterality Blood specimen 08/06/2017 12:32 8 1:15 (specimen) PM EST PM EST Resulting Agency Comment Spec In Lab Arik Clement MD HEMATOLOGY ORDERABLES Performing Organization Address City/State/[place] [address] documented in this encounter Visit Diagnoses Diagnosis Ischemia of foot Unspecified circulatory system disorder documented in this encounter Care Teams Custom Bookbinder Relationship Specialty Start Date End Date Lovely Vicente MD PCP - General 04/16/[address] [place] [address] documented as of this encounter
--- OUTSIDE RECORDS SUMMARY | 2022-05-15 08:26 | XMS_ITS | Encounter Summary ---
:1945 [place] [address] Care Team Providers Name Role Phone Lovely Vicente MD Primary Care Provider Encounter Details Date Type Department Care Team Description 08/04/2017 Notes Only Pain Management at Barbra Bruno, [facility] [place] [address] [place] [address] [phone] (Wo rk) Social History Tobacco Use Types [...] bid) at this time. Barbra Soares, MSN, CAREER GUIDANCE TECHNICIAN-BC, [facility] documented in this encounter Plan of Treatment Upcoming Encounters Date Type Specialty Care Team Description 05/28/2022 Appointment Cardiology Zulma Dolan MD [facility] Dr [place], [place] [address] (Wo rk) 05/28/2022 Laboratory Appointment Lab 05/28/2022 Office Visit Cardiology Zulma Dolan MD [facility] [place] [address] Liz Poole PA [facility] [place] [address] 06/10/2022 Office Visit Dermatology Laura Scherer MD [facility] DR [address] [place], [place] [address] (Wo rk) documented as of this encounter Visit Diagnoses Not on filedocumented in this encounter Care Teams Inventory Auditor Relationship Specialty Start Date End Date Lovely Vicente MD PCP - General 04/16/[address] [place] [address] documented as of this encounter
--- OUTSIDE RECORDS SUMMARY | 2022-05-15 08:26 | XMS_ITS | Encounter Summary ---
:1945 Author Organization [facility] [place] [address] Care Team Providers Name Role Phone Lovely Vicente MD Primary Care Provider Reason for Visit Reason Comments Deep Vein Thrombosis Auth/Cert Specialty Diagnoses / Procedures Referred By Contact Refer red To Contact Diagnoses Critical lower limb ischemia CELLULITIS RT FOOT Procedures EMERGENCY Referral ID Status Reason Start Date Expiration Date Visits Requ ested Visits Authorized [id number] 1 1 Encounter Details Date Type Department Care Team Description 08/04/2017 Office Visit Vascular Surgery at [facility] itical lower limb [facility] ischemia [facility] [address] [place], [place] VASCULAR SURGERY [id number] [place] [address] [phone] Social History Tobacco Use Types Packs/Day Years [...] Dolan MD [facility] [place] [address] Liz Poole PA [facility] [place] [address] 06/10/2022 Office Visit Dermatology Laura Scherer MD [facility] ER DR [address] [place], [place] [address] (Wo rk) documented as of this encounter Visit Diagnoses Diagnosis Critical lower limb ischemia Unspecified circulatory system disorder documented in this encounter Care Teams Cook Pickled Meat Relationship Specialty Start Date End Date Lovely Vicente MD PCP - General 04/16/15 [facility] [address] [place], [place] [address] documented as of this encounter
--- OUTSIDE RECORDS SUMMARY | 2022-05-15 08:26 | XMS_ITS | Encounter Summary ---
:1945 Author Organization [facility] [place] [address] Care Team Providers Name Role Phone Lovely Vicente MD Primary Care Provider Encounter Details Date Type Department Care Team Description 07/29/2017 Transcribe Orders Laboratory Lovely Vicente MD [address] [address] [place] [address] [phone] (Wo rk) Social History Tobacco Use Types [...] Dolan MD [facility] er Dr [place] [address] (Wo rk) 05/28/2022 Laboratory Appointment Lab 05/28/2022 Office Visit Cardiology Zulma Dolan MD [facility] [place] [address] Liz Poole PA [facility] [place] [address] 06/10/2022 Office Visit Dermatology Laura Scherer MD [facility] ER DR [address] [place], [place] [address] (Wo rk) documented as of this encounter Visit Diagnoses Not on filedocumented in this encounter Care Teams Clinic Md Associate Relationship Specialty Start Date End Date Lovely Vicente MD PCP - General 04/16/[address] [place] [address] documented as of this encounter
--- OUTSIDE RECORDS SUMMARY | 2022-05-15 08:26 | XMS_ITS | Encounter Summary ---
:1945 Author Organization [facility] [address] Care Team Providers Name Role Phone Lovely Vicente MD Primary Care Provider Encounter Details Date Type Department Care Team Description 08/04/2017 Orders Only Cardiac Surgery Makayla Wilson APRN [facility] [place] [place] [address] CARDIAC SURGERY [phone] [place], [place] [address] (Wo rk) Social History Tobacco [...] MD [facility] er [place] [address] (Wo rk) 05/28/2022 Laboratory Appointment Lab 05/28/2022 Office Visit Cardiology Zulma Dolan MD [facility] [place] [address] Liz Poole PA [facility] [place] [address] 06/10/2022 Office Visit Dermatology Laura Scherer MD [facility] ER DR [address] [place], [place] [address] (Wo rk) documented as of this encounter Visit Diagnoses Not on filedocumented in this encounter Care Teams Research Editor Relationship Specialty Start Date End Date Lovely Vicente MD PCP - General 04/16/[address] [place] [address] documented as of this encounter
--- OUTSIDE RECORDS SUMMARY | 2022-05-15 08:27 | XMS_ITS | Encounter Summary ---
:1945 Author Organization [facility] [place] [address] Care Team Providers Name Role Phone Lovely Vicente MD Primary Care Provider Reason for Visit Reason Onset Date Comments Other 07/22/2017 lovenox bridge Encounter Details Date Type Department Care Team Description 07/22/2017 Telephone Cardiology at [facility] Court Cadena RN Other (lovenox bridge) [place] [address] Social History Tobacco Use Types Packs/Day [...] 4:49 PM EST VAMSI Del Castillo, at [facility], called earlier today with a question re: lovenox bridge for this patient who was recently discharged from [facility] r/t a blood clot. Discharge note faxed to [facility] (fax# [phone], Ph#: [phone]) which contains instructions r/t lovenox bridge as follows: Anticoagulation: on lovenox bridge to therapeutic coumadin for AFib. Goal INR 2-3. At discharge INR=1.5. The lovenox injections can stop when INR >2, coumadin will continue indefinitely. documented in this encounter Plan of Treatment Upcoming Encounters Date Type Specialty Care Team Description 05/28/2022 Appointment Cardiology Zulma Dolan MD [facility] [place], [place] [address] (Wo rk) 05/28/2022 Laboratory Appointment Lab 05/28/2022 Office Visit Cardiology Zulma Dolan MD [facility] [place] [address] Liz Poole PA [facility] [place] [address] 06/10/2022 Office Visit Dermatology Laura Scherer MD [facility] [address] [place], [place] [address] (Wo rk) documented as of this encounter Visit Diagnoses Not on filedocumented in this encounter Care Teams Rn Internship Relationship Specialty Start Date End Date Lovely Vicente MD PCP - General 04/16/15 [facility] [address] [place] [address] documented as of this encounter
--- OUTSIDE RECORDS SUMMARY | 2022-05-15 08:27 | XMS_ITS | Encounter Summary ---
:1945 Author Organization [facility] [place] [address] Care Team Providers Name Role Phone Lovely Vicente MD Primary Care Provider Encounter Details Date Type Department Care Team Description 07/24/2017 Telephone Vascular Surgery Melba Bob [facility] [place] [address] [facility] [phone] VASCULAR SURGERY [place], [place] [address] (Wo rk) Social History Tobacco [...] Dolan MD [facility] [address] [address] (Wo rk) 05/28/2022 Laboratory Appointment Lab 05/28/2022 Office Visit Cardiology Zulma Dolan MD [facility] [place] [address] Liz Poole PA [facility] [place] [address] 06/10/2022 Office Visit Dermatology Laura Scherer MD [facility] [address] [place], [place] [address] (Wo rk) documented as of this encounter Visit Diagnoses Not on filedocumented in this encounter Care Teams Windows Server Administrator Relationship Specialty Start Date End Date Lovely Vicente MD PCP - General 04/16/[address] [place] [address] documented as of this encounter
--- OUTSIDE RECORDS SUMMARY | 2022-05-15 08:27 | XMS_ITS | Encounter Summary ---
:1945 [place] [address] Care Team Providers Name Role Phone Lovely Vicente MD Primary Care Provider Reason for Visit Reason Comments Hospital Transfer cold foot post CABG Auth/Cert Specialty Diagnoses / Procedures Referred By Contact Refer red To Contact Diagnoses Critical lower limb ischemia Procedures NAYE IPI Referral ID Status Reason Start Date Expiration Date Visits Requ ested Visits Authorized [id number] 1 1 Encounter Details Date Type Department Care Team Description 07/20/2017 Hospital Encounter 4 Herminia Ibarra MD [facility] [place] [address] Critical lower limb [facility] Arik Clement MD [facility] [place] [address] [place] [address] Social History Tobacco Use Types Packs/Day Years [...] home. Important Studies and Lab Data: Labs: [facility] Results Component Value Date INR 1.5 [...] For any problems or questions please call [phone] ZELDA Smith, net developer with wcf Nurse Clinician For issues on weeknights after 5pm and weekends please call [phone] and ask for the Vascular Fellow internal consultant. General Instructions None Future Appointments and Orders Future Appointments Provider Department Dept Phone 08/04/2017 1:00 PM Daniele Mooney [place] [facility] [place] [phone] 08/04/2017 2:15 PM Arik Clement MD [facility] Surgery at [place] [phone] 09/07/2017 3:00 PM MAYRA CHACON Lab [facility] [phone] 09/07/2017 4:00 PM Luz Prescott MD Endocrinology at [place] [phone] Future Orders Complete By Expires Arterial Duplex Leg, Unil [VAS32 Custom] 07/27/2017 (Approximate) 01/26/2018 Process Instructions: There is no in-house vascular greens laborer available on weeknights (5pm-8am), weekends, or holidays. IF THIS IS A REQUEST FOR AN EMERGENT STUDY DURING THOSE HOURS, please have the senior provider responsible for the patient page the Vascular Surgery Fellow/Senior Resident internal consultant to discuss options. Scheduling Instructions: Questions: Indication for study/signs & symptoms: Right femoral PSA s/p cardiac cath Question to be answered: bloodflow to PSA Laterality: Right Is there a RIGHT LOWER EXTREMITY graft?: No Lower limb right segments: Common Femoral Is there a stent?: No At which location will this be performed?: [place] Referral to Home Health - at DISCHARGE [[id number] CPT(R)] As directed Process Instructions: Scheduling Instructions: Comments: DOCUMENTATION FOR VNA SERVICES (INCLUDING THOSE PATIENTS WITH MEDICARE COVERAGE REQUIRING HOME VNA SERVICES AND/OR HOSPICE SERVICES) PATIENT'S LOCATION: Gregory Fatima [address] [place] [address] [place] [id number] (home) Cell: Telephone Information: Veneer Taping Machine Offbearer's Name: self In discussion with the attending physician, it is certified that this patient is under their care and that they, or a Nurse Practitioner,Clinical Nurse specialist or Physician 911 Operator who is working directly with them, [...] [facility] ([facility] [place] [facility]-[place] in [place] PHONE: [phone] FAX: [phone] Start of care: 24- 48 hours FOR [...] patient'sPCP: Lovely Vicente MD [address] [facility] [place] / [place] [address] All VNA agencies which cover the area [...] For any problems or questions please call [phone] ZELDA Smith, net developer with wcf Nurse Clinician For issues on weeknights after 5pm and weekends please call [phone] and ask for the Vascular Fellow internal consultant. 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 A letter describing our affiliations was reviewed with them and theywere educated about their right to choose where referrals are placed. Patient requests referral to [facility] [email or web address]. PHONE: [phone] FAX: [phone]. Expected date of discharge: 07/20/2017 . Referral routed to the Electric Wirer for matching with agency/vendor and to provide any required information. 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 A letter describing our affiliations was reviewed with them and theywere educated about their right to choose where referrals are placed. Patient requests referral to [facility] ([facility] [place] [facility]- is in [place] PHONE: [phone] FAX: [phone]. Expected date of discharge: 07/20/2017 . Referral routed to the Electric Wirer for matching with agency/vendor and to provide any required information. Katina Pulliam RNmarketing liaison Janneth Lee MD - 07/20/2017 7:29 AM [...] -ISS -pain control Discussed with Vascular Fellow internal consultant. Chris Valadez MD PGY2 Pager [phone] documented in this encounter ED Notes Annita Reaves MD - 07/20/2017 3:15 PM EST Emergency Department Gregory Fatima is a 72 y.o. 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 History [...] Hospitalizations Within the Past 30 Days: [facility] 07/05/17 Anticipated Length Of [...] Health/Prescription Coverage: Primary Insurance: MEDICARE Secondary Insurance: [employer] [facility] Prescription Coverage: See above Preferred Pharmacy: [facility] Other: N/A Primary Care Provider: Lovely Vicente MD [phone] Patient/Caregiver Goals of Treatment: Patient plans to return home when medically ready Potential Needs for Transition of Care: Rehab/SNF: N/A Home Health: Yasmani [facility] ([facility] [place] [facility]-[place] in [place] PHONE: [phone] FAX: [phone] DME: N/A Dialysis: N/A Community Resources: N/A Transportation: Patient family will transport Other: N/A Anticipated Barriers to Discharge/Special Considerations: None Plan: Patient plans to return home with home health services when medically ready A member of the Care Management team will continue to monitor progress, follow for continuity of care and assist with transition of care planning. Naty Pulliam, RN Pager: [phone] ED Triage - Rayna Weir RN - 07/20/2017 12:28 AM EST Pt transferred from [place] for blue right foot and painful toes. [...] Zulma Dolan MD [facility] [address] [place], [place] [address] (Wo rk) 05/28/2022 Laboratory Appointment Lab 05/28/2022 Office Visit Cardiology Zulma Dolan MD [facility] [place] [address] Liz Poole PA [facility] [place] [address] 06/10/2022 Office Visit Dermatology Laura Scherer MD [facility] DR TE[address] GR[address]DERMAT [place], [place] [address] (Wo rk) documented as of this encounter Procedures Procedure Name Priority Date/Time Associated Comments Diagnosis OUTSIDE SALES ACCOUNT MANAGER SCAN 09/02/2017 12:00 Res ults for this [...] LAB EST procedure are i n ([facility]) the results section. [...] documented in this encounter Results SCAN DOC: OUTSIDE SALES ACCOUNT MANAGER (09/02/2017 12:00 AM EST) Narrative 09/02/2017 12:00 AM EST This result has an attachment that is no t available. Ordered by an unspecified provider. Scanning Provider MEDIA MGR SCAN EXT ORDR/RSLT POCT Glucose (07/20/2017 12:04 PM EST) P athologist Signature POC Glucose 189 65 - 199 [facility] mg/dL [facility] [...] City/State/[place] [address] (ABNORMAL) Differential, Automated (07/20/2017 10:34 AM EST) Patholo gist Method Time Signature Neutrophils % 84.3 % [facility] LABORATORY Neutr Abs (ANC) 14.27 (H) 1.70 - [facility] 6.10 [facility] x10(3)/[facility] LABORATORY Lymphocytes % 5.6 % [facility] LABORATORY Lymphocytes Abs 1.0 0.9 - 3.2 [facility] x10(3)/[facility] LABORATORY Monocytes % 6.1 % [facility] LABORATORY Monocyte Abs 1.0 (H) 0.3 - 0.9 [facility] x10(3)/[facility] LABORATORY Eosinophils % 2.4 % [facility] LABORATORY Eosinophils Abs 0.4 0.0 - 0.4 [facility] x10(3)/[facility] LABORATORY Basophils % 0.5 % [facility] LABORATORY Basophils Abs 0.1 0.0 - 0.1 [facility] x10(3)/[facility] LABORATORY Immature Gran % 1.10 [...] City/State/[place] [address] (ABNORMAL) Hemogram (07/20/2017 10:34 AM EST) Analysis Performed At Patho logist Time Signature WBC 17.0 (H) 4.0 - 9.5 [facility] x[facility](3[facility] LABORATORY RBC 3.70 (L) 4.58 - [facility] 5.54 [facility] x10(6)/[facility] LABORATORY Hemoglobin 10.8 (L) 13.7 - [facility] 16.5 gm/dL [facility] LABORATORY Hematocrit 33.4 (L) 40.5 - [facility] 48.5 % [facility] LABORATORY MCV 90.3 82.9 - [facility] 93.1 [facility] LABORATORY MCH 29.2 27.5 - [facility] 32.1 pg [facility] LABORATORY MCHC 32.3 32.0 - [facility] 35.7 gm/dL [facility] LABORATORY Platelets 211 145 - 357 [facility] x10(3)/[facility] LABORATORY RDWSD 49.1 (H) 36.0 - [facility] 45.0 [facility] LABORATORY RDWCV 14.7 (H) 11.4 - [facility] 13.8 % [facility] LABORATORY MPV 9.2 7.6 - 12.9 [facility] nRBC % Auto 0.0 % [facility] LABORATORY nRBC Abs Auto 0.000 0.000 - [facility] 0.000 [facility] x10(3)/[facility] LABORATORY Specimen Anatomical Collection Method Collection Time Receive d Time (Source) Location / / Volume Laterality Blood specimen 07/20/2017 10:34 7 (specimen) AM EST 10:39 AM EST Resulting Agency Comment Spec In Lab Arik Clement MD HEMATOLOGY ORDERABLES Performing Organization Address City/State/[place] [address] (ABNORMAL) APTT (07/20/2017 10:34 [...] City/[facility]/[place] [address] POCT Glucose (07/20/2017 7:41 AM EST) athologist Signature POC Glucose 174 65 - 199 [facility] mg/dL [facility] [...] City/[facility]/ZIP Code Phon e Number [address] JULIAN, legs, multiple levels (07/20/2017 7:33 AM EST) Component Value Ref Test Analysis Performed At Patholo gist Range Method Time Signature VB Text Department: Vascular Surgery Lab VASCUBASE Report Patient: [id number] (GREGORY FATIMA) CPT: 73822 ICD10: I75.021;I99.8 Referring Physician: ARIK CLEMENT ?? [...] Component Value Ref Test Analysis Performed At [facility] Range Method Time Signature VB Text Department: Vascular Surgery Lab VASCUBASE Report Patient: [id number] (GREGORY FATIMA) CPT: 64215 ICD10: I97.610;I99.8 Referring Physician: ARIK CLEMENT ?? [...] POC Glucose 199 65 - 199 [facility] mg/dL [facility] [...] S Performing Organization Address City/[facility]/ZIP [facility] [place] [address] Lactate, whole blood, send to lab (Leb/CGP) (07/20/2017 2:25 AM EST) athologist Signature Lactate WB 2.0 0.5 - 2.2 [facility] mmol/L [facility] LABORATORY Specimen Anatomical Collection Method Collection Time Receive d Time (Source) Location / / Volume Laterality Blood specimen Venous Draw / 07/20/2017 2:25 AM 2016 2:37 (specimen) Unknown EST AM EST Resulting Agency Comment Spec In Lab Zulma Samuel MD CHEMISTRY ORDERABLES Performing Organization Address City/[facility] Code Phon e Number [address] (ABNORMAL) APTT (07/20/2017 2:25 [...] City/[facility]/[place] [address] (ABNORMAL) Prothrombin Time (07/20/2017 [...] City/State/[place] [address] (ABNORMAL) Basic Metabolic Panel (non-fasting) (07/20/2017 2:25 AM EST) P athologist Signature Glucose Lvl 187 65 - 199 [facility] mg/dL [facility] [...] HOSPITAL LABORATORY Comment: Specimen hemolyzed. Called by: [facility], Read back by: Chitra Orantes, [...] or in patients with acute kidney failure. [email or web address] [email or web address] Specimen Anatomical Collection Method Collection Time Receive d Time (Source) Location / / Volume Laterality Blood specimen 07/20/2017 2:25 AM 017 2:33 (specimen) EST AM EST Resulting Agency Comment Spec In Lab Annita Reaves MD CHEMISTRY ORDERABLES Performing Organization Address City/State/ZIP Code Phon e Number [place] [id number] documented in this encounter [...] Group 2) 0-8,000 Units, Intravenous, BOLUS PER [facility] PROTOCOL, Starting Wed07/20/17 at 0424, Until [...]
Routine documented in this encounter Care Teams Communication Center Operator Relationship Specialty Start Date End Date Lovely Vicente MD PCP - General 04/16/[address] [place] [address] documented as of this encounter
--- OUTSIDE RECORDS SUMMARY | 2022-05-15 08:27 | XMS_ITS | Encounter Summary ---
:1945 [place] [address] Care Team Providers Name Role Phone Lovely Vicente MD Primary Care Provider Encounter Details Date Type Department Care Team Description 07/16/2017 Telephone Endocrinology at [facility] C Manuela Holliday, [facility] [place] [address] ENDOCRINOLOGY DEPT [phone] [place], [place] [address] (Wo rk) Social History Tobacco [...] Dolan MD [facility] [address] [place], [place] [address] (Wo rk) 05/28/2022 Laboratory Appointment Lab 05/28/2022 Office Visit Cardiology Zulma Dolan MD [place] [address] Liz Poole PA [facility] [place] [address] 06/10/2022 Office Visit Dermatology Laura Scherer MD [facility] DR [address] [place], [place] [address] (Wo rk) documented as of this encounter Visit Diagnoses Not on filedocumented in this encounter Care Teams Saw Cleaner Relationship Specialty Start Date End Date Lovely Vicente MD PCP - General 04/16/[address] [place] [address] documented as of this encounter
--- OUTSIDE RECORDS SUMMARY | 2022-05-15 08:27 | XMS_ITS | Encounter Summary ---
:1945 [place] [address] Care Team Providers Name Role Phone Lovely Vicente MD Primary Care Provider Reason for Visit Reason Onset Date Comments Questions 07/16/2017 fluid retention Encounter Details Date Type Department Care Team Description 07/16/2017 Telephone Cardiology at [facility] Martha Comer, Questions ([facility] RN retention ) [place] [address] Social History Tobacco Use Types Packs/Day [...] the direct number to the HF team ([phone]). She is aware of his appt with ECOLOGICAL MODELER Hans on 07/21/17 and the need for labs prior to that visit. verbalized good understanding of the current POC. documented in this encounter Plan of Treatment Upcoming Encounters Date Type Specialty Care Team Description 05/28/2022 Appointment Cardiology Zulma Dolan MD [facility] [address] [place], [place] [address] (Wo rk) 05/28/2022 Laboratory Appointment Lab 05/28/2022 Office Visit Cardiology Zulma Dolan MD [facility] [place] [address] Liz Poole PA [facility] [place] [address] 06/10/2022 Office Visit Dermatology Laura Scherer MD [facility] DR [address] [place], [place] [address] (Wo rk) documented as of this encounter Visit Diagnoses Not on filedocumented in this encounter Care Teams Manual Writer Relationship Specialty Start Date End Date Lovely Vicente MD PCP - General 04/16/[address] [place] [address] documented as of this encounter
--- OUTSIDE RECORDS SUMMARY | 2022-05-15 08:28 | XMS_ITS | Encounter Summary ---
:1945 Author Organization [facility] [place] [address] Care Team Providers Name Role Phone Lovely Vicente MD Primary Care Provider Reason for Referral Consultation (Routine) - Closed Specialty Diagnoses / Referred By Contact Referred To Contact Procedures Cardiac Rehabilitation Diagnoses S/P CABG x 3 Yuan Webber, Cardiac Rehab, [address] [place] CARDIOTHORACIC [address] [place] [address] Referral ID Status Reason Start Date Expiration Date Visits V isits Requested Authorized [id number] Closed Consult, 07/14/2017 01/10/2018 36 36 Test & Treat Reason for Visit Auth/Cert Specialty Diagnoses / Procedures Referred By Contact Refer red To Contact Diagnoses STEMI (ST elevation myocardial infarction) NSTEMI STEMI Procedures CARDIAC CATHETERIZATION NAYE IPI Referral ID Status Reason Start Date Expiration Date Visits Requ ested Visits Authorized [id number] 1 1 Encounter Details Date Type Department Care Team Description 07/05/2017 - Hospital Encounter Cardiac Special Daphne Shahid MD [facility] [place] [address] Non-ST elevation myocardial infarction ( NSTEMI); 07/14/2017 Care Unit Yuan Preciado MD [facility] DR [place] [address] S/P CABG x 3 [place] [id number] Social History Tobacco Use Types Packs/Day Years [...] , @ 1:20p Patient to follow-up with Health Professional/heart failure team in one week. An appointment will be made for you. You may call [phone] Patient to follow-up with Cardiac Surgery, Dr. Yuan Webber, in ~ 4 weeks with CXR, EKG. Inpatient Provider Contact Information: [facility] Section of Cardiac Surgery [facility] [address] FAX [phone] Discharge Diagnoses (Hospital Problems) Primary Diagnoses: CAD [...] 33.75) performed by Yuan Webber MD at [facility] MAIN OR ??? PRO CABG, ARTERY-VEIN, TWO N/A 07/07/2017 @CABG, TWO VENOUS GRAFTS & ARTERIAL GRAFT (WRVU 7.93) performed by Yuan Webber MD at [facility] MAIN OR ??? PRO COLONOSCOPY, REMV LESN, SNARE 01/16/2014 COLONOSCOPY, POLYPECTOMY, REMOVAL LESION BY SNARE performed by Nohemi Jaimes MD at [facility] ENDOSCOPY ??? PRO ENDOSCOPY W/VIDEO-ASST VEIN HARVEST, CABG Right 07/07/2017 ENDOSCOPIC HARVEST VEIN(S) FOR CABG (WRVU 0.31) performed by Yuan Webber MD at [facility] MAIN OR ??? PRO THYROIDECTOMY 03/28/2013 THYROIDECTOMY, TOTAL OR COMPLETE performed by Manny Mcknight MD at [facility] MAIN OR Prior To Admission Medications Prescriptions Prior to Admission Medication Sig Dispense Refill Last Dose ??? levothyroxine (SYNTHROID) 175 mcg Tablet Take 1 tablet by mouth daily. 90 tablet 3 07/05/2017 [id number] ??? ascorbic acid, vitamin C, (VITAMIN C) [...] Hospital Course: Gregory Hoang was admitted to [facility] on 07/05/2017 via the Cardiology Service. During his hospital course, he was taken emergently to the laborer stores for an ongoing STEMI. An IABP was [...] not take or discontinue any prescription or slvw-vjx-yaphorx medications without asking your doctor or pharmacist [...] day to have your insulin doses adjusted. [facility] Endocrine clinic office Discharge [...] Webber and/or the Cardiac Surgery Physician Manager Audit Team may be reached at . Weight: [...] Dr. Yuan Webber. You may use a [place] Track or treadmill but avoid any [...] with the surgeon. Do not ride motorcycles, KnowRe's tractors or horses. Avoid the use of [...] , @ 1:20p Patient to follow-up with Health Professional/heart failure team in one week. Appointment will be made for you. You may call [phone] Patient to follow-up with Cardiac Surgery, Dr. Yuan Webber, in ~ 4 weeks with CXR, EKG. Cardiac Rehabilitation: Gregory Hoang was seen today regarding participation in the outpatient Phase 2 Cardiac Rehabilitation at [facility]. The patient agrees to a referral to this program. The referral will be sent at discharge and the patient should be contacted by the Program within 1- 2 weeks from discharge. ?? Future Appointments and Orders Future Appointments Provider Department Dept Phone 09/07/2017 3:00 PM LAB, THREE L Lab 3L [facility] [phone] 09/07/2017 4:00 PM Luz Prescott MD Endocrinology at [place] [phone] Future Orders Complete By Expires EKG 12 Lead [EKG1 Custom] 08/14/2017 02/13/2018 Process Instructions: Scheduling Instructions: Questions: Which location will this be performed?: [place] Is a rhythm strip needed?: No If EKG Reason is Pre-op Evaluation, indicate diagnosis for surgery.: XR Chest PA & Lateral (Generic) [[id number] Custom] 08/14/2017 02/13/2018 Process Instructions: Scheduling Instructions: Questions: Where will study be performed?: [place] [facility] Portable exam?: Reason for exam and clinical history: CABG x 3 Other pertinent information: Stat read required?: Date of injury if applicable: Requested Time: Referral to Cardiac Rehab [PPX003 Custom] As directed Process Instructions: If no progress note charted, please enter Clinical details in comments. Scheduling Instructions: Questions: My question or request is: s/p CABG. Cardiac rehab at [facility] Referral to Home Health - at DISCHARGE [YZD5019 CPT(R)] As directed Process Instructions: Scheduling Instructions: Comments: DOCUMENTATION FOR VNA SERVICES (INCLUDING THOSE PATIENTS WITH MEDICARE COVERAGE REQUIRING HOME VNA SERVICES AND/OR HOSPICE SERVICES) PATIENT'S LOCATION: Gregory Hoang [address] [place] [address] [place] [id number] (home) Telephone Information: Video Network Engineer's Name: self In discussion with the attending physician, it is certified that this patient is under their care and that they, or a Nurse Practitioner, or Physician Manager Audit who is working directly with them, had [...] (Central Intake for [employer] [place] [employer]-is in [place]) PHONE: [phone] FAX: [phone] RN orders: Cardiopulmonary assessment, incisional assessment, assess vital signs, assessment of rehab progress, medication management and effectiveness, home safety evaluation. Please draw INR if indicated and send result to:Dr Vicente [phone] PT ORDERS: Continue rehab for endurance, gait stability and strength with mobility and transfers. Home safety evaluation. Home exercise program if appropriate. Start of Care Date:24-48 hours after discharge SPECIAL INSTRUCTIONS: For any follow up questions, needs, or issues please call the Cardiac Surgery Office at [phone] FOR MEDICARE ONLY: (please delete this section [...] OR AFTER 07/17/2017 Signed: Martha Teague APRN [facility] Section of Cardiac Surgery [facility] [phone] FAX [phone] Date: 07/14/2017 CC: MD Ivania Cr Betsy, PA [address] [place] [phone] documented in this encounter Discharge Instructions Discharge [...] day to have your insulin doses adjusted. [facility] Endocrine clinic office Patient [...] not take or discontinue any prescription or mpqg-pcj-zoggjhj medications without asking your doctor or pharmacist [...] juice or regular (not diet) soda 6 Smart Checkouts small box of raisins 4 glucose tablets [...] day to have your insulin doses adjusted. [facility] Endocrine clinic office ? [...] Webber and/or the Cardiac Surgery Physician Manager Audit Team may be reached at . ?? [...] Dr. Yuan Webber. You may use a [place] Track or treadmill but avoid any [...] with the surgeon. Do not ride motorcycles, Know[employer]Brightleaf tractors or horses. Avoid the use of [...] @ 1:20p ?? Patient to follow-up with Health Professional/heart failure team in one week. An appointment has been made for you, you can call [phone] ?? Patient to follow-up with Cardiac Surgery, Dr. Yuan Webber, in ~ 4 weeks with CXR, EKG. ? Cardiac Rehabilitation: Gregory Hoang??was seen today regarding participation in the outpatient Phase 2 Cardiac Rehabilitation at [facility]. ?? The patient agrees to a referral to this program.? The referral will be sent at discharge and the patient should be contacted by the Program within 1- 2 weeks from discharge. ? Future Appointments and Orders Future Appointments Provider Department Dept Phone ?? 09/07/2017 3:00 PM LAB, THREE L Lab 3L [facility] [phone] ?? 09/07/2017 4:00 PM Luz Prescott MD Endocrinology at [place] [phone] Future Orders Complete By Expires ?? EKG 12 Lead [EKG1 Custom] 08/14/2017 02/13/2018 ?? Process Instructions: ? Scheduling Instructions: ? Questions: ? Which location will this be performed?: [place] ?? Is a rhythm strip needed?: No ?? If EKG Reason is Pre-op Evaluation, indicate diagnosis for surgery.: ?? XR Chest PA & Lateral (Generic) [[id number] Custom] 08/14/2017 02/13/2018 ?? Process Instructions: ? Scheduling Instructions: ? Questions: ? Where will study be performed?: [place] [facility] ?? Portable exam?: ?? Reason for exam and clinical history: CABG x 3 ?? Other pertinent information: ?? Stat read required?: ?? Date of injury if applicable: ?? Requested Time: ?? Referral to Cardiac Rehab [NGZ016 Custom] As directed ? Process Instructions: ?? If no progress note charted, please enter Clinical details in comments. ?? Scheduling Instructions: ? Questions: ? My question or request is: s/p CABG. Cardiac rehab at [facility] ? Arrangements for VNA/home care: [...] referrals are placed. Patient requests referral to [facility] PHONE: [phone] FAX: [phone] Expected date of discharge: 07/14 Referral routed to the [employer] for matching with agency/vendor and to provide [...] day to have your insulin doses adjusted. [facility] Endocrine clinic office Kathie Carrera APRN [facility] Endocrinology Diabetes Management Pager [phone] minutes of this 35 minute visit [...] ([facility] for [employer] [place] [employer]-is in [place]) PHONE: [phone] FAX: [phone]. Expected date of discharge: 07/14/17 Referral routed to the [employer] for matching with agency/vendor and to provide [...] hours. If BG remains greater than 240, euiekt30 units (no more than three times) &??call [...] Will continue to follow Katerin Azul APRN [facility] Endocrinology Diabetes Management Pager [phone] 15 minutes of this 25 minute visit [...] of infiltration/extravasation Discussed plan of care with CARDROOM DRAWING RUNNER and RN. Elevate exrtemity and apply intermittent Warm compresses. Name of MD contacted Dr. Shaw Brown 07/13/2017 @ 0640 Name of RN contacted Ale Rangel RN Name of Pharmacist if consulted NA Name of Plastics MD ( if consulted) NA (Mandatory photo for infiltrations/ extravasations scoring a stage 2 or greater, but recommended forstage 1)( include measuring tape and identifier in the photo) HIGH MAN CARING FOR THIS PATIENT WILL CONTINUE TO [...] measuring tape and identifier in the photo) HIGH MAN CARING FOR THIS PATIENT WILL CONTINUE TO [...] to both infiltrates addressed by this technical report writer.All of Mr. Honag's responses were entirely appropriate. Images of infiltrates attached here. Martha Sharp APRN - 07/13/2017 8:01 AM EST Cardiac Surgery Progress Note: ID: [id number] 72 year old male POD#6 s/p CABGx3 [...] discharge planning needs. I have provided the [facility], Office of Care Management letter from the Metal Organ Pipe Maker pertaining to rehab referrals. I have also provided a letter describing our affiliations within the [facility] and educated them about their right to [...] date of discharge: 07/14 Note routed to [employer] who will communicate referrals to facilities and [...] hours. If BG remains greater than 240, zjqzev88 units (no more than three times) & [...] hours. If BG remains greater than 240, emlyko13 units (no more than three times) & call for new basal insulin orders. ??If less than 240 after two hours, give no insulin and resume prior schedule. Will continue to follow Katerin Patel. STACIE Azul [facility] Endocrinology Diabetes Management Pager [phone] 20 minutes of this 35 minute visit was spent with the patient in counseling on diabetes and treatment plan, reviewing all glucose and insulin data as well as relevant laboratory results with the patient, and coordination of care on the inpatient unit including nursing and primary team. Makayla Stevenson APRN - 07/12/2017 9:52 AM EST Cardiac Surgery Progress Note: ID: [id number] 72 year old male POD#5 s/p CABGx3 [...] 07/11/2017 7:18 PM EST Patient arrived from [facility]. VSS. MSI dressing pulled off with [...] hours. If BG remains greater than 240, gputxk40 units (no more than three times) & [...] AM EST Cardiac Surgery Progress Note: ID: [id number] 72 year old male POD#4 s/p CABGx3 [...] hours. If BG remains greater than 240, mintng80 units (no more than three times) & [...] AM EST Cardiac Surgery Progress Note: ID: [id number] 72 year old male POD#3 s/p CABGx3 [...] Gas) No results found for: PHART, PO2ART, LZU3LIL Assessment/Plan: 72 year old male POD#3 s/p [...] Encounter Note Patient Name: Gregory Hoang : [id number] MR#: [id number] Admit Date: 07/05/2017 4:20 PM Hospital Day 4 days Narrative: Patient was sitting in chair, hugging heart pillow, opened his eyes, nodding to come into room Assessment: Patient was sleepy. Intervention and Outcome: Introduced java spring developer services and patient reached his hand out in appreciation. Follow-up: Lan Specialist remains available for support. Time in [...] AM EST Report given to senior staff accountant to cover care Maddison Cee PA - 07/09/2017 9:00 AM EST Cardiac Surgery Progress Note: ID: [id number] 72 year old male POD#2 s/p CABGx3 [...] Attending Surgeon on rounds. Signed: STEPHANIE Iqbal [facility] Section of Cardiac Surgery Date: 07/09/2017 Magnolia Santiago [facility] - 07/09/2017 1:[address] ICU [...] when IABP d/c'ed. Gretchen Carolina, PT Pager [phone] Maddison Cee PA - 07/08/2017 11:27 AM EST Cardiac Surgery Progress Note: ID: [id number] 72 year old male POD#1 s/p CABGx3 [...] Attending Surgeon on rounds. Signed: STEPHANIE Iqbal [facility] Section of Cardiac Surgery Date: [...] NICK SEGAL MD 07/08/2017 Jay Munoz [facility] - 07/08/2017 4:[address] Surgery [...] in place in R femoral. No hematoma. JEWELRY MAKER- Intact Psych- Anxious Skin- Dry, no [...] intact. IABP in place in R femoral. JEWELRY MAKER- Intact Psych- Anxious Skin- Dry, no [...] 301) . CARDIOLOGY ATTENDING NOTE Patient: Gregory Hoagn Date of Service: 07/06/2017 Date of Admission: [...] note for details. DAPHNE SHAHID MD Pager [phone] Jet Mckenna MD - 07/05/2017 6:48 PM EST Preliminary Cardiac Catheterization Procedure Note: Procedure(s) performed: Left heart cath, IABP insertion Access: Right INSIDE POLISHER-->8fr IABP A time-out was conducted prior to [...] Heparin gtt maintained. Pt transferred to laborer stores. documented in this encounter H&P Notes Daphne Shahid MD - 07/05/2017 6:08 PM EST CARDIOLOGY HISTORY & PHYSICAL EXAM Date of Admission: 07/05/2017 ( Hospital Day 0 days ) Responsible Attending: Daphne Shahid MD PCP: Lovely Vicente MD PCP#: [phone] Patient Active Problem List Diagnosis Code ??? [...] significant valvular disease. Taken to the laborer stores urgently for ongoing STEMI. [facility] Labs: INR 1.0 WBC 5.88 [...] I/O - s/p lasix in the laborer stores, redose to aim net neg 1L by [...] - ISS - hold metformin - f/u [facility] #Home Meds - continue levothyroxine 175mcg - CPAP at night # Routine - DVT PPx: heparin drip - Diet: NPO - Code Status: FULL - Dispo: [facility] Cedric Bey MD Internal Medicine, PGY-2 Cardiology S1, Team Pager # [phone] CARDIOLOGY ATTENDING NOTE Patient: Gregory Hoang Date [...] amenable for PCI. DAPHNE SHAHID MD Pager [phone] documented in this encounter Miscellaneous Notes Consult Note - Daphne Shahid MD - 07/14/2017 11:46 AM EST Heart Failure Service Inpatient Consult Note Gregory Hoang Date of : 1945 Age: 72 y.o. Today's date: 07/14/17 PCP: Lovely Vicente MD NANOSYSTEMS ENGINEER: None Place of Service: [facility] Reason for Consult: Dr. Webber [...] 33.75) performed by Yuan Webber MD at [facility] MAIN OR ??? PRO CABG, ARTERY-VEIN, TWO N/A 07/07/2017 @CABG, TWO VENOUS GRAFTS & ARTERIAL GRAFT (WRVU 7.93) performed by Yuan Webber MD at [facility] MAIN OR ??? PRO COLONOSCOPY, REMV LESN, SNARE 01/16/2014 COLONOSCOPY, POLYPECTOMY, REMOVAL LESION BY SNARE performed by Nohemi Jaimes MD at [facility] ENDOSCOPY ??? PRO ENDOSCOPY W/VIDEO-ASST VEIN HARVEST, CABG Right 07/07/2017 ENDOSCOPIC HARVEST VEIN(S) FOR CABG (WRVU 0.31) performed by Yuan Webber MD at [facility] MAIN OR ??? PRO THYROIDECTOMY 03/28/2013 THYROIDECTOMY, TOTAL OR COMPLETE performed by Manny Mcknight MD at [facility] MAIN OR Outpt Meds: Current Outpatient Prescriptions [...] following studies: EKG 07/14/17: NSR 75 bpm, SPEECH COACH anterior infarct, LAD CXR 07/11/17: FINDINGS: Sternotomy wires. The patient has been extubated, left chest tube removed, and [place]-Suzi catheter removed since the 07/07/2017 study. Atelectasis [...] discussed with Zehra. Jaden Kelley MD Lead Shipper Pager [phone] CARDIOLOGY ATTENDING NOTE Patient: Gregory Hoang Date [...] heart failure clinic. DAPHNE SHAHID MD Pager [phone] Plan of Care - Alden Chavarria, TECHNICAL DOCUMENTATION SPECIALIST - 07/14/2017 11:35 AM EST Problem: [...] Disposition: home with assist Alden Chavarria, TECHNICAL DOCUMENTATION SPECIALIST Pager: [phone] Inpatient Physical Therapy Problem: Acute Rehab Services [...] sit/sit to supine -- Bed Mobility Goal, [place] Level supervision required -- Bed Mobility Goal, [...] - 3 days -- Gait Training Goal, [place] Level supervision required -- Gait Training Goal, [...] days -- Transfer Training Goal, Activity Type izs-sl-qdvwq/amdts-um-wqf;bzi-fx-gdxim/aymni-mz-mnb;toilet -- Transfer Train Goal, [place] Level supervision required -- Transfer Training Goal, [...] for 2 days per family. Director Of Neurology noted of frustrations, house keeping sent to room. Patient offered showered twice, refused. at bedside, frustrated that shower not complete, informed that patient had refused several times. requesting to see STUDENT FINANCIAL SERVICES COUNSELOR, paged sent to Martha, will come to bedside (middle of consult). not willing to wait, Martha notified that family had gone home. Encouraged to come for morning rounds a t 8am. Diabetes team at bedside - insulin adjustments made. Call cabello in reach. Continue to monitor. PLAN MOVING FORWARD: Ambulate, dressing changes BID, Please change drsg at 4am per Martha STUDENT FINANCIAL SERVICES COUNSELOR request. INDIVIDUALIZED FALL PREVENTION INTERVENTIONS: Patient-specific [...] levels on the lower side, 60ml of [place] juice given after a FS of 80. [...] 07/13/17 0502 Interdisciplinary Rounds/Family Conf Participants watch case polisher;dietitian/nutrition services;nursing;occupational therapy;patient;pharmacy;physical therapy;physician Plan of Care - [...] Anticipated Discharge Disposition: home with assist Pager: [phone] CLARISSA SEGAL, PT 07/12/2017 Physical Therapy Rehabilitation [...] to sit/sit to supine Bed Mobility Goal, [place] Level supervision required Bed Mobility Goal, Additional Goal adheres to psternal precautions for transfer Goal: Gait Training Goal Stand Alone Therapy Goal Outcome: Ongoing (Interventions Implemented as Appropriate) 07/12/17 1225 Gait Training Goal Gait Training Goal, Date Established 07/12/17 Gait Training Goal, Time to Achieve 2 - 3 days Gait Training Goal, [place] Level supervision required Gait Training Goal, Assist [...] 3 days Transfer Training Goal, Activity Type uif-zq-maejx/wftoq-ah-gee;wax-gc-bjibu/qmuvc-gi-toh;toilet Transfer Train Goal, [place] Level supervision required Transfer Training Goal, Additional Goal adheres to sternal precautions during transfer Consult Note - Octavia Vaughn RN - 07/12/2017 10:50 AM EST [facility] CARDIAC REHABILITATION Gregory Hoang was seen today regarding participation in the outpatient Phase 2 Cardiac Rehabilitation at [facility]. The patient agrees to a [...] IV site, amio to other piv and SINGLE NEEDLE TUFTING MACHINE OPERATOR at bedside to help assess, [...] Implemented as Appropriate) 07/11/17199907/11/17200907/12/17 [facility] Daily Care Interventions Self-Care Promotion [...] staff, he stood and marched in place. [place] weak, wanting to sit back down. [...] Outcome: Ongoing (Interventions Implemented as Appropriate) 07/05/17 8398 Mutuality/Individual Preferences What Anxieties, Fears or Concerns [...] Health/Prescription Coverage: Primary Insurance: MEDICARE Secondary Insurance: [employer] [place] Prescription Coverage: yes Preferred Pharmacy[facility] [place] Other: none Primary Care Provider: Lovely Vicente MD [phone] Patient/Caregiver Goals of Treatment:live and get my breath back Potential Needs for Transition of Care: Rehab/SNF: [facility] Home Health: NA DME: TBD Dialysis: na Community Resources: available Transportation: yes Other: none Anticipated Barriers to Discharge/Special Considerations: none Plan: Likely SNF Rehab before home A member of the Care Management team will continue to monitor progress, follow for continuity of care and assist with transition of care planning. ERLIN Weiss Pager: [phone] Consult Note - Katerin Azul RN - [...] patient W/E coverage, Dr. Jeane Tatum, pager [phone] Katerin Patel. STACIE Azul Endocrinology Diabetes Management Pager [phone] Plan of Care - Stephanie Godoy RN [...] Webber MD - 07/07/2017 6:27 PM EST [facility] Operative Note Patient Name: Gregory Hoang : [id number] MR#: [id number] Case Date: 07/07/2017 Surgeon: Surgeon(s) and Role: * Yuan Webber MD - Primary * Michael Drake PA - Physician Manager Audit * Linda Flores PA - Physician Manager Audit Preoperative diagnosis: 3VD Postoperative diagnosis: CAD, severe [...] Operative Note Patient Name: Gregory Hoang : [id number] MR#: [id number] Case Date: 07/07/2017 Surgeon: Surgeon(s) and Role: * Yuan Webber MD - Primary * Michael Drake PA - Physician Manager Audit * Linda Flores PA - Physician Manager Audit Preoperative diagnosis: 3VD Postoperative diagnosis: CAD, severe [...] code status: Full Code Katty Davidjose, MS3 [facility] Cardiology S1 (Pager [phone]) Plan of Care - Emelia Ibarra RN [...] [facility] Social History: Social History Social [...] with other involved physicians Yuan Webber MD [phone] Med Student Progress Note - Katty Hahn [...] BiPAP - s/p lasix in the laborer stores, was net -1.5L - s/p plavix load, [...] Dispo: [facility] Katty Hahn, M3 [facility] Cardiology S1 (Pager [phone]) Plan of Care - Stephanie Godoy RN [...] urinal without difficulty. Lasix given in laborer stores, 1.4 L out at this time. Pt [...] Dolan MD [facility] [address] [place], [place] [address] (Wo lissa) 05/28/2022 Laboratory Appointment Lab 05/28/2022 Office Visit Cardiology Zulma Dolan [place] [address] Liz Poole PA [facility] [place] [address] 06/10/2022 Office Visit Dermatology Laura Scherer MD [facility] [address] [place], [place] [address] (Wo rk) Scheduled Orders Name [...] procedure are i n the results section. PROJECT ASSISTANT SCAN 07/15/2017 12:00 Res ults for this [...] Routine 07/08/2017 4:00 Results f or this ([facility]) AM EST procedure are [...] Routine 07/06/2017 7:40 Results f or this ([facility]) PM EST procedure are [...] section. TYPE AND SCREEN Routine 07/06/2017 12:00 ([facility]/SHANDA) PM EST APTT STAT [...] Routine 07/06/2017 8:10 Results f or this ([facility]) AM EST procedure are [...] Routine 07/05/2017 8:20 Results f or this ([facility]) PM EST procedure are [...] Timed 07/05/2017 4:55 Results f or this ([facility]) PM EST procedure are [...] 2017 EXAMINATION: XR CHEST PA AND LATERAL ([employer]) CLINICAL HISTORY: CABG x 3 TECHNIQUE: PA [...] Teague APRN IMG DX ORDERABLES SCAN DOC: PROJECT ASSISTANT (07/15/2017 12:00 AM EST) Narrative 07/15/2017 12:00 [...] Signature POC Glucose 186 65 - 199 [facility] Comment: [...] [facility]/[place] [address] POCT Glucose (07/14/2017 7:52 AM EST) athologist Signature POC Glucose 126 65 - 199 [facility]dL [facility] Comment: [...] Organization Address City/State/[place] [address] (ABNORMAL) Prothrombin Time (07/14/2017 [...] [facility]/[place] [address] Potassium (07/14/2017 4:46 AM EST) athologist Signature Potassium 4.3 3.5 - 5.0 [facility] mmol/L [facility] [...] [facility]/[place] [address] POCT Glucose (07/14/2017 4:34 AM EST) athologist Signature POC Glucose 115 65 - 199 [facility] Comment: [...] City/State/ZIP Code Phon e Number [place] [id number] POCT Glucose (07/13/2017 11:33 PM EST) athologist Signature POC Glucose 132 65 - 199 [place] ZHAORYAN mg/dL [facility] Comment: [...] Address City/State/ZIP Code Phon e Number [address] POCT Glucose (07/13/2017 9:25 PM EST) athologist Signature POC Glucose 121 65 - 199 [place] RYAN mg/dL [facility] Comment: [...] Address City/State/ZIP Code Phon e Number [address] POCT Glucose (07/13/2017 4:55 PM EST) athologist Signature POC Glucose 79 65 - 199 [place] RY[place] mg/dL [facility] Comment: [...] Organization Address City/State/[place] [address] POCT Glucose (07/13/2017 11:16 AM EST) athologist Signature POC Glucose 163 65 - 199 [facility] Comment: [...] Address City/State/ZIP Code Phon e Number [address] POCT Glucose (07/13/2017 8:07 AM EST) athologist Signature POC Glucose 96 65 - 199 [facility] Comment: [...] Address City/State/ZIP Code Phon e Number [address] (ABNORMAL) Prothrombin Time (07/13/2017 [...] Organization Address City/State/[place] [address] (ABNORMAL) Basic Metabolic Panel (non-fasting) (07/13/2017 4:26 AM EST) athologist Signature Glucose Lvl 95 65 - 199 [facility] mg/dL [facility] [...] [facility] Estimated GFR 60 >=60 [facility] Comment: The reported eGFR should be multiplied b y 1.2 for patients. The MDRD is not an appropriate measure o f renal function for patients with body mass extremes or in patients with acute kidney failure. http://codetag.arGEN-X/DHnkdep http://Dely/DHMCnkf Specimen Anatomical Collection Method Collection Time Receive d Time (Source) Location / / Volume Laterality Blood specimen 07/13/2017 4:26 AM 017 4:46 (specimen) EST AM EST Resulting Agency Comment Spec In Lab Makayla Wilson APRN CHEMISTRY ORDERABLES Performing Organization Address City/[facility]/ZIP Code Phon e Number [address] POCT Glucose (07/13/2017 3:52 AM EST) athologist Signature POC Glucose 93 65 - 199 [facility] RYAN mg/dL [facility] Comment: [...] [facility]/ZIP Code Phon e Number [address] POCT Glucose (07/13/2017 12:21 AM EST) athologist Signature POC Glucose 80 65 - 199 [place] RYAN mg/dL [facility] Comment: [...] [facility]/[place] [address] POCT Glucose (07/12/2017 8:22 PM EST) athologist Signature POC Glucose 119 65 - 199 [place] RYAN mg/dL [facility] Comment: [...] Address City/State/ZIP Code Phon e Number [address] POCT Glucose (07/12/2017 4:02 PM EST) athologist Signature POC Glucose 114 65 - 199 [place] RYAN mg/dL [facility] Comment: [...] Address City/State/ZIP Code Phon e Number [address] POCT Glucose (07/12/2017 11:28 AM EST) athologist Signature POC Glucose 164 65 - 199 [facility] RYAN mg/dL [facility] Comment: [...] Address City/State/ZIP Code Phon e Number [address] POCT Glucose (07/12/2017 7:34 AM EST) athologist Signature POC Glucose 109 65 - 199 [facility] RYAN mg/dL [facility] Comment: [...] Organization Address City/State/[place] [address] (ABNORMAL) Basic Metabolic Panel (non-fasting) (07/12/2017 4:11 AM EST) P athologist Signature Glucose Lvl 92 65 - 199 [facility] mg/dL [facility] [...] CENTER LABORATORY Estimated GFR 58 (L) >=60 [facility] Comment: The reported eGFR should be multiplied b y 1.2 for patients. The MDRD is not an appropriate measure o f renal function for patients with body mass extremes or in patients with acute kidney failure. http://codetag.arGEN-X/DHnkdep http://codetag.arGEN-X/DHMCnkf Specimen Anatomical Collection Method Collection Time Receive d Time (Source) Location / / Volume Laterality Blood specimen 07/12/2017 4:11 AM 017 8:57 (specimen) EST AM EST Resulting Agency Comment Spec In Lab Makayla Wilson APRN CHEMISTRY ORDERABLES Performing Organization Address City/State/[place] [address] (ABNORMAL) Prothrombin Time (07/12/2017 [...] [facility]/[place] [address] Potassium (07/12/2017 4:11 AM EST) athologist Signature Potassium 3.8 3.5 - 5.0 [facility] mmol/L [facility] [...] Agency Comment Spec In Lab Makayla Dejesusfield ORDNANCE ENGINEERING TECHNICIAN CHEMISTRY ORDERABLES Performing Organization Address City/[facility]/[place] [address] POCT Glucose (07/12/2017 4:10 AM EST) athologist Signature POC Glucose 90 65 - 199 [facility] Comment: [...] Address City/State/ZIP Code Phon e Number [address] POCT Glucose (07/11/2017 11:57 PM EST) athologist Signature POC Glucose 98 65 - 199 [facility]/dL [facility] Comment: [...] Address City/State/ZIP Code Phon e Number [address] POCT Glucose (07/11/2017 8:32 PM EST) athologist Signature POC Glucose 146 65 - 199 [facility] mg/dL [facility] Comment: [...] Organization Address City/State/[place] [address] XR Chest PA & [...] e xtubated, left chest tube removed, and Pittston-Suzi catheter removed since the study. Atelectasis at [...] e xtubated, left chest tube removed, and Pittston-Suzi catheter removed since the study. Atelectasis at [...] Glucose 223 (H) 65 - 199 [place] RYNA mg/dL [facility] Comment: [...] Address City/State/ZIP Code Phon e Number [address] POCT Glucose (07/11/2017 11:55 AM EST) athologist Signature POC Glucose 176 65 - 199 [place] ZHAORYAN mg/dL [facility] Comment: [...] [facility]/ZIP Code Phon e Number [address] POCT Glucose (07/11/2017 7:53 AM EST) athologist Signature POC Glucose 189 65 - 199 [place] RYAN mg/dL [facility] Comment: [...] Organization Address City/State/[place] [address] POCT Glucose (07/11/2017 4:22 AM EST) athologist Signature POC Glucose 151 65 - 199 [place] RYAN mg/dL [facility] Comment: [...] [facility]/[place] [address] Potassium (07/11/2017 2:20 AM EST) athologist Signature Potassium 4.5 3.5 - 5.0 [facility] mmol/L [facility] Comment: [...] [facility]/[place] [address] POCT Glucose (07/11/2017 12:17 AM EST) athologist Signature POC Glucose 162 65 - 199 [place] RYAN mg/dL [facility] Comment: [...] [facility]/Z[place] [address] POCT Glucose (07/10/2017 8:47 PM EST) athologist Signature POC Glucose 191 65 - 199 [place] RYAN mg/dL [facility] Comment: [...] Organization Address City/State/[place] [address] POCT Glucose (07/10/2017 4:06 PM EST) athologist Signature POC Glucose 131 65 - 199 [place] RYAN mg/dL [facility] Comment: [...] [facility]/[place] [address] POCT Glucose (07/10/2017 3:08 PM EST) athologist Signature POC Glucose 151 65 - 199 [place] RYAN mg/dL [facility] Comment: [...] Organization Address City/State/[place] [address] POCT Glucose (07/10/2017 2:25 PM EST) athologist Signature POC Glucose 146 65 - 199 [facility] RYAN mg/dL [facility] Comment: [...] Address City/State/ZIP Code Phon e Number [address] POCT Glucose (07/10/2017 1:23 PM EST) P athologist Signature POC Glucose 166 65 - 199 [place] ZHAORYAN mg/dL [facility] Comment: [...] [facility]/ZIP Code Phon e Number [address] POCT Glucose (07/10/2017 11:52 AM EST) P athologist Signature POC Glucose 157 65 - 199 [place] RYAN mg/dL [facility] Comment: [...] [facility]/[place] [address] POCT Glucose (07/10/2017 11:01 AM EST) P athologist Signature POC Glucose 158 65 - 199 [place] RYAN mg/dL [facility] Comment: [...] Address City/State/ZIP Code Phon e Number [address] POCT Glucose (07/10/2017 9:54 AM EST) athologist Signature POC Glucose 160 65 - 199 [place] ZHAORYAN mg/dL [facility] Comment: [...] [facility]/ZIP Code Phon e Number [address] POCT Glucose (07/10/2017 8:58 AM EST) athologist Signature POC Glucose 183 65 - 199 [place] RYAN mg/dL [facility] Comment: [...] Address City/State/ZIP Code Phon e Number [address] POCT Glucose (07/10/2017 8:01 AM EST) athologist Signature POC Glucose 173 65 - 199 [facility] RYAN mg/dL [facility] Comment: [...] Address City/State/ZIP Code Phon e Number [address] POCT Glucose (07/10/2017 7:05 AM EST) athologist Signature POC Glucose 166 65 - 199 [place] RYAN mg/dL [facility] Comment: [...] Address City/State/ZIP Code Phon e Number [address] POCT Glucose (07/10/2017 6:00 AM EST) athologist Signature POC Glucose 162 65 - 199 [facility] mg/dL [facility] Comment: [...] Organization Address City/State/[place] [address] (ABNORMAL) Differential, Automated (07/10/2017 4:28 AM EST) [facility] gist Method Time Signature Neutrophils % 87.9 % [facility] Neutr Abs (ANC) 10.70 (H) 1.70 - [facility] 6.10 [facility] x10(3)/[facility] L LABORATORY Lymphocytes % 3.9 % [facility] Lymphocytes Abs 0.5 (L) 0.9 - 3.2 [facility] x10(3)/[facility] LABORATORY Monocytes % 7.0 % [facility] Monocyte Abs 0.8 0.3 - 0.9 [facility] x10(3)/[facility] LABORATORY Eosinophils % 0.3 % [facility] Eosinophils Abs 0.0 0.0 - 0.4 [facility] x10(3)/[facility] LABORATORY Basophils % 0.2 % [facility] Basophils Abs 0.0 0.0 - 0.1 [facility] x10(3)/[facility] LABORATORY Immature [...] Organization Address City/State/[place] [address] (ABNORMAL) Hemogram (07/10/2017 4:28 AM EST) Analysis Performed At Patho logist Time Signature WBC 12.2 (H) 4.0 - 9.5 [facility] x10(3)/[facility] LABORATORY RBC 3.31 (L) 4.58 - [facility] 5.54 [facility] x10(6)/[facility] LABORATORY Hemoglobin 9.8 (L) 13.7 - [facility] 16.5 gm/dL [facility] Hematocrit 30.0 (L) 40.5 - [facility] 48.5 % [facility] MCV 90.6 82.9 - [facility] 93.1 fL [facility] MCH 29.6 27.5 - [facility] 32.1 pg [facility] MCHC 32.7 32.0 - [facility] 35.7 gm/dL [facility] Platelets 135 (L) 145 - 357 [facility] x10(3)/[facility] LABORATORY RDWSD 50.8 (H) 36.0 - [facility] 45.0 [facility] LABORATORY RDWCV 15.4 (H) 11.4 - [facility] 13.8 % [facility] MPV 10.0 7.6 - 12.9 [facility] LABORATORY nRBC % Auto 0.0 % [facility] nRBC Abs Auto 0.000 0.000 - [facility] 0.000 [facility] x10(3)/[facility] LABORATORY Specimen Anatomical Collection Method Collection Time Receive d Time (Source) Location / / Volume Laterality Blood specimen 07/10/2017 4:28 AM 017 4:36 (specimen) EST AM EST Resulting Agency Comment Spec In Lab Yuan Webber MD HEMATOLOGY ORDERABLES Performing Organization Address City/State/[place] [address] (ABNORMAL) Basic Metabolic Panel (non-fasting) (07/10/2017 4:28 AM EST) athologist Signature Glucose Lvl 178 65 - 199 [facility] mg/dL [facility]ORATORY [...] MEDICAL CENTER LABORATORY Estimated GFR 60 >=60 [facility] Comment: The reported eGFR should be multiplied b y 1.2 for patients. The MDRD is not an appropriate measure o f renal function for patients with body mass extremes or in patients with acute kidney failure. http://Dely/DHnkdep http://Dely/DHMCnkf Specimen Anatomical Collection Method Collection Time Receive d Time (Source) Location / / Volume Laterality Blood specimen 07/10/2017 4:28 AM 017 4:36 (specimen) EST AM EST Resulting Agency Comment Spec In Lab Yuan Webber MD CHEMISTRY ORDERABLES Performing Organization Address City/[facility]/ZIP Code Phon e Number [address] POCT Glucose (07/10/2017 4:26 AM EST) P athologist Signature POC Glucose 176 65 - 199 [facility] Comment: [...] Organization Address City/State/[place] [address] (ABNORMAL) POCT Glucose (07/10/2017 3:06 AM EST) P athologist Signature POC Glucose 204 (H) 65 - 199 [facility] mg/dL [facility] Comment: [...] [facility]/[place] [address] (ABNORMAL) POCT Glucose (07/10/2017 2:10 AM EST) P athologist Signature POC Glucose 203 (H) 65 - 199 [place] ZHAORYAN mg/dL [facility] Comment: [...] [facility]/[place] [address] POCT Glucose (07/10/2017 1:09 AM EST) P athologist Signature POC Glucose 196 65 - 199 [place] ZHAORYAN mg/dL [facility] Comment: [...] Organization Address City/State/[place] [address] POCT Glucose (07/10/2017 12:10 AM EST) P athologist Signature POC Glucose 173 65 - 199 [place] RYAN mg/dL [facility] Comment: [...] Address City/State/ZIP Code Phon e Number [address] POCT Glucose (07/09/2017 11:01 PM EST) athologist Signature POC Glucose 140 65 - 199 [place] RYAN mg/dL [facility] Comment: [...] [facility]/ZIP Code Phon e Number [address] POCT Glucose (07/09/2017 10:05 PM EST) athologist Signature POC Glucose 144 65 - 199 [place] ZHAORYAN mg/dL [facility] Comment: [...] Organization Address City/State/[place] [address] POCT Glucose (07/09/2017 9:31 PM EST) athologist Signature POC Glucose 121 65 - 199 [place] RYAN mg/dL [facility] Comment: [...] Address City/State/ZIP Code Phon e Number [address] POCT Glucose (07/09/2017 9:03 PM EST) athologist Signature POC Glucose 98 65 - 199 [place] ZHAORYAN mg/dL [facility] Comment: [...] Address City/State/ZIP Code Phon e Number [address] POCT Glucose (07/09/2017 8:09 PM EST) athologist Signature POC Glucose 117 65 - 199 [place] RYAN mg/dL [facility] Comment: [...] Address City/State/ZIP Code Phon e Number [address] POCT Glucose (07/09/2017 5:40 PM EST) athologist Signature POC Glucose 155 65 - 199 [facility] RYAN mg/dL [facility] Comment: [...] Address City/State/ZIP Code Phon e Number [address] POCT Glucose (07/09/2017 4:24 PM EST) athologist Signature POC Glucose 164 65 - 199 [place] RYAN mg/dL [facility] Comment: [...] [facility]/ZIP Code Phon e Number [address] POCT Glucose (07/09/2017 3:19 PM EST) athologist Signature POC Glucose 166 65 - 199 [place] ZHAORYAN mg/dL [facility] Comment: [...] [facility]/Z[place] [address] POCT Glucose (07/09/2017 2:26 PM EST) athologist Signature POC Glucose 179 65 - 199 [place] RYAN mg/dL [facility] Comment: [...] Organization Address City/State/[place] [address] (ABNORMAL) POCT Glucose (07/09/2017 1:29 PM EST) P athologist Signature POC Glucose 210 (H) 65 - 199 [facility] RYAN mg/dL [facility] Comment: [...] Organization Address City/State/[place] [address] POCT Glucose (07/09/2017 12:20 PM EST) athologist Signature POC Glucose 172 65 - 199 [facility] RYAN mg/dL [facility] Comment: [...] Organization Address City/State/[place] [address] POCT Glucose (07/09/2017 11:24 AM EST) athologist Signature POC Glucose 156 65 - 199 [facility] RYAN mg/dL [facility] Comment: [...] Organization Address City/State/[place] [address] POCT Glucose (07/09/2017 11:11 AM EST) athologist Signature POC Glucose 172 65 - 199 [place] ZHAORYAN mg/dL [facility] Comment: [...] Address City/State/ZIP Code Phon e Number [address] POCT Glucose (07/09/2017 10:08 AM EST) athologist Signature POC Glucose 176 65 - 199 [place] ZHAORYAN mg/dL [facility] Comment: [...] Address City/State/ZIP Code Phon e Number [address] POCT Glucose (07/09/2017 8:02 AM EST) athologist Signature POC Glucose 178 65 - 199 [place] ZHAORYAN mg/dL [facility] Comment: [...] Organization Address City/State/[place] [address] (ABNORMAL) BLOOD GAS 2 ARTERIAL (07/09/2017 5:37 AM EST) Analysis Performed At Patho logist Time Signature pH Art 7.36 7.35 - [facility] 7.45 [facility]ORY pCO2 Art 38 35 - 45 [facility] mmHg [facility]ORY pO2 Art 79 (L) 85 - 104 [facility] LABORATORY HCO3 Art 20.9 20.0 - [facility] 26.0 [facility] mmol/L [facility] LABORATORY BE Art -4.6 (L) -3.0 - 3.0 [facility] mmol/L [facility] Hgb Blood Gas 10.5 (L) 13.7 - [facility] 16.5 gm/dL [facility] O2HB Art 93.8 (L) 94.0 - [facility] 97.0 % [facility]ATORY COHB Art 0.3 % [facility] FIO2 Art 40 % [facility] PF Ratio Art 198 [facility] LABOR[facility]ORY Specimen Anatomical Collection Method Collection Time Receive d Time (Source) Location / / Volume Laterality Blood specimen 07/09/2017 5:37 AM 017 5:37 (specimen) EST AM EST Yuan Webber MD CHEMISTRY ORDERABLES Performing Organization Address City/[facility]/ZIP Code Phon e Number [address] POCT Glucose (07/09/2017 3:27 AM EST) athologist Signature POC Glucose 192 65 - 199 [facility] Comment: [...] Organization Address City/State/[place] [address] (ABNORMAL) Basic Metabolic Panel (non-fasting) (07/09/2017 2:30 AM EST) athologist Signature Glucose Lvl 179 65 - 199 [facility] mg/dL [facility]ORY [...] or in patients with acute kidney failure. http://Dely/DHnkdep http://Dely/DHMCnkf Specimen Anatomical Collection Method Collection Time Receive d Time (Source) Location / / Volume Laterality Blood specimen Venous Draw / 07/09/2017 2:30 AM 2016 2:42 (specimen) Unknown EST AM EST Resulting Agency Comment Spec In Lab Yuan Webber MD CHEMISTRY ORDERABLES Performing Organization Address City/[facility] [place] [address] (ABNORMAL) Potassium (07/09/2017 2:30 AM EST) P athologist Signature Potassium 5.1 (H) 3.5 - 5.0 [facility] mmol/L [facility] LABORATORY [...] Performing Organization Address City/[facility]/ZIP [facility] [place] [address] (ABNORMAL) Hemogram (07/09/2017 2:30 AM EST) Analysis Performed At Patho logist Time Signature WBC 12.5 (H) 4.0 - 9.5 [facility] x[facility](3[facility] LABORATORY RBC 3.38 (L) 4.58 - [place] [facility] 5.54 [facility] x10(6)/[facility] LABORATORY Hemoglobin 10.1 (L) 13.7 - [place] ZHAORYAN 16.5 gm/dL [facility] LABORATORY Hematocrit 30.3 (L) 40.5 - [place] 48.5 % [facility] LABORATORY MCV 89.6 82.9 - [facility] 93.1 [facility] LABORATORY MCH 29.9 27.5 - [place] ZHAORYAN 32.1 pg [facility] LABORATORY MCHC 33.3 32.0 - [place] ZHAORYAN 35.7 gm/dL [facility] LABORATORY Platelets 127 (L) 145 - 357 [facility] x10(3)/[facility] LABORATORY RDWSD 49.3 (H) 36.0 - [facility] 45.0 [facility] LABORATORY RDWCV 15.2 (H) 11.4 - [facility] RYAN 13.8 % [facility] LABORATORY MPV 9.9 7.6 - 12.9 [facility] LABORATORY nRBC % Auto 0.0 % [facility] LABORATORY nRBC Abs Auto 0.000 0.000 - [place] ZHAORYAN 0.000 [facility] x10(3)/[facility] LABORATORY Specimen Anatomical Collection Method Collection Time Receive d Time (Source) Location / / Volume Laterality Blood specimen 07/09/2017 2:30 AM 017 2:41 (specimen) EST AM EST Resulting Agency Comment Spec In Lab Yuan Webber MD HEMATOLOGY ORDERABLES Performing Organization Address City/State/[place] [address] POCT Glucose (07/09/2017 2:10 AM EST) P athologist Signature POC Glucose 169 65 - 199 [facility] mg/dL [facility] LABORATORY [...] Address City/State/ZIP Code Phon e Number [address] POCT Glucose (07/09/2017 1:01 AM EST) P athologist Signature POC Glucose 173 65 - 199 [place] DAVIS mg/dL [facility] LABORATORY Comment: [...] [facility]/[place]IP [place] [address] Blood culture (07/09/2017 12:40 AM EST) [facility] gist Method Time Signature Blood Culture No growth [place] DAVIS at 5 days. [facility] LABORATORY Specimen Anatomical Collection Method Collection Time Receive d Time (Source) Location / / Volume Laterality Blood specimen STRUCTURE OF RIGHT 07/09/2017 12:40 3:58 (specimen) UPPER LIMB / AM EST AM EST Unknown Resulting Agency Comment Spec In Lab Yuan Webber MD MICROBIOLOGY - BLOOD ORDERAB LES Performing Organization Address City/[facility]/ZIP Code [place] [address] Blood culture (07/09/2017 12:30 AM EST) Patholo gist Method Time Signature Blood Culture No growth [place]INA DAVIS at 5 days. [facility] LABORATORY Specimen Anatomical Collection Method Collection Time Receive d Time (Source) Location / / Volume Laterality Blood specimen STRUCTURE OF LEFT 07/09/2017 12:30 06/25 3:59 (specimen) UPPER LIMB / AM EST AM EST Unknown Resulting Agency Comment Spec In Lab Yuan Webber MD MICROBIOLOGY - BLOOD ORDERAB LES Performing Organization Address City/[facility]/ZIP Code [place] [address] (ABNORMAL) Urinalysis Microscopic Exam [...] Organization Address City/State/[place] [address] (ABNORMAL) Urinalysis with reflex Culture (07/09/2017 12:05 AM EST) Patholo gist Method Time Signature Glucose UA Negative Negative [facility] mg/dL [facility] LABORATORY Protein UA 30 (A) Negative [facility] mg/dL [facility] LABORATORY Bilirubin UA Negative Negative [facility] mg/dL [facility] LABORATORY Comment: Clinical correlation required [...] [facility] LABORATORY Nitrite UA Negative Negative [facility] LABORATORY Leukocytes UA Negative Negative [facility] LABORATORY Appearance UA Hazy (A) Clear [facility] LABORATORY Spec [place] UA 1.025 1.002 - 1.030 [facility] LABORATORY Color UA Yellow Yellow [facility] LABORATORY Culture Reflexed No [facility] LABORATORY Specimen (Source) Anatomical Collection Method Collection Time Re ceived Time Location / / Volume Laterality Urine specimen 07/09/2017 12:05 7 obtained via AM EST 12:39 AM EST indwelling urinary catheter (specimen) Resulting Agency Comment Spec In Lab Yuan Webber MD URINE ORDERABLES Performing Organization Address City/[facility]/ZIP Code Phon e Number [address] POCT Glucose (07/08/2017 11:01 PM EST) athologist Signature POC Glucose 191 65 - 199 [facility]/dL [facility] LABORATORY Comment: [...] [facility]/ZIP Code Phon e Number [address] POCT Glucose (07/08/2017 10:04 PM EST) athologist Signature POC Glucose 198 65 - 199 [facility] mg/dL [facility] LABORATORY Comment: [...] Organization Address City/State/[place] [address] Prepare Albumin 5% in [...] Organization Address City/State/[place] [address] POCT Glucose (07/08/2017 8:28 PM EST) athologist Signature POC Glucose 195 65 - 199 [facility] mg/dL [facility] LABORATORY Comment: [...] Organization Address City/State/[place] [address] (ABNORMAL) POCT Glucose (07/08/2017 7:13 PM EST) athologist Signature POC Glucose 220 (H) 65 - 199 [facility] mg/dL [facility] LABORATORY Comment: [...] Organization Address City/State/[place] [address] POCT Glucose (07/08/2017 5:04 PM EST) athologist Signature POC Glucose 147 65 - 199 [facility] mg/dL [facility] LABORATORY [...] Organization Address City/State/[place] [address] (ABNORMAL) BLOOD GAS 2 ARTERIAL (07/08/2017 4:13 PM EST) Analysis Performed At Patho logist Time Signature pH Art 7.38 7.35 - [facility] 7.45 [facility] LABORATORY pCO2 Art 36 35 - 45 [facility] mmHg [facility] LABORATORY pO2 Art 91 85 - 104 [facility] LABORATORY HCO3 Art 20.9 20.0 - [facility] 26.0 [facility] mmol/L [facility] LABORATORY BE Art -4.2 (L) -3.0 - 3.0 [facility] mmol/L [facility] LABORATORY Hgb Blood Gas 11.7 (L) 13.7 - [facility] 16.5 gm/dL [facility] LABORATORY O2HB Art 95.1 94.0 - [facility] 97.0 % [facility] LABORATORY COHB Art 0.6 % [facility] FIO2 Art 40 % [facility] LABORATORY PF Ratio Art 228 [facility] LABORATORY Specimen Anatomical Collection Method Collection Time Receive d Time (Source) Location / / Volume Laterality Blood specimen 07/08/2017 4:13 PM 017 4:13 (specimen) EST PM EST Yuan Webber MD CHEMISTRY ORDERABLES Performing Organization Address City/[facility]/ZIP [facility] [place] [address] POCT Glucose (07/08/2017 4:01 PM EST) P athologist Signature POC Glucose 148 65 - 199 [facility]/dL [facility] LABORATORY Comment: [...] [facility]/ZIP [place] [address] POCT Glucose (07/08/2017 3:21 PM EST) P athologist Signature POC Glucose 118 65 - 199 [facility] mg/dL [facility] LABORATORY Comment: [...] Address City/State/ZIP Code Phon e Number [address] POCT Glucose (07/08/2017 2:01 PM EST) athologist Signature POC Glucose 129 65 - 199 [place] RYAN mg/dL [facility] LABORATORY Comment: [...] [facility]/ZIP Code Phon e Number [address] POCT Glucose (07/08/2017 11:53 AM EST) athologist Signature POC Glucose 156 65 - 199 [place] RYAN mg/dL [facility] LABORATORY Comment: [...] [facility]/ZIP Code Phon e Number [address] POCT Glucose (07/08/2017 11:04 AM EST) athologist Signature POC Glucose 181 65 - 199 [place] RYAN mg/dL [facility] LABORATORY Comment: [...] Organization Address City/State/[place] [address] (ABNORMAL) POCT Glucose (07/08/2017 9:24 AM EST) athologist Signature POC Glucose 203 (H) 65 - 199 [facility] mg/dL [facility] LABORATORY [...] Organization Address City/State/[place] [address] APTT (07/08/2017 8:40 AM [...] [facility]/[place] [address] (ABNORMAL) Prothrombin Time (07/08/2017 [...] Organization Address City/State/[place] [address] (ABNORMAL) POCT Glucose (07/08/2017 7:38 AM EST) athologist Signature POC Glucose 232 (H) 65 - 199 [facility] mg/dL [facility] LABORATORY Comment: [...] [facility]/[place] [address] (ABNORMAL) POCT Glucose (07/08/2017 7:07 AM EST) athologist Signature POC Glucose 234 (H) 65 - 199 [facility] mg/dL [facility] LABORATORY Comment: [...] [facility]/[place] [address] (ABNORMAL) POCT Glucose (07/08/2017 6:04 AM EST) athologist Signature POC Glucose 225 (H) 65 - 199 [facility] mg/dL [facility] LABORATORY Comment: [...] Organization Address City/State/[place] [address] (ABNORMAL) POCT Glucose (07/08/2017 5:31 AM EST) athologist Signature POC Glucose 216 (H) 65 - 199 [facility] mg/dL [facility] LABORATORY Comment: [...] Organization Address City/State/[place] [address] (ABNORMAL) POCT Glucose (07/08/2017 4:52 AM EST) athologist Signature POC Glucose 257 (H) 65 - 199 [facility] mg/dL [facility] LABORATORY Comment: [...] Organization Address City/State/[place] [address] (ABNORMAL) BLOOD GAS 2 ARTERIAL (07/08/2017 4:04 AM EST) Analysis Performed At Patho logist Time Signature pH Art 7.30 (L) 7.35 - [facility] 7.45 [facility] LABORATORY pCO2 Art 41 35 - 45 [facility] mmHg [facility] LABORATORY pO2 Art 83 (L) 85 - 104 [facility] LABORATORY HCO3 Art 19.6 (L) 20.0 - [facility] 26.0 [facility] mmol/L [facility] LABORATORY BE Art -6.8 (L) -3.0 - 3.0 [facility] mmol/L [facility] LABORATORY Hgb Blood Gas 12.2 (L) 13.7 - [facility] 16.5 gm/dL [facility] O2HB Art 93.5 (L) 94.0 - [facility] 97.0 % [facility] COHB Art 0.4 % [facility] LABORATORY Comment: Noted by instrument mechanic weapons system. FIO2 Art 40 % [facility] LABORATORY PF Ratio Art 208 [facility] LABORATORY Specimen Anatomical Collection Method Collection Time Receive d Time (Source) Location / / Volume Laterality Blood specimen 07/08/2017 4:04 AM 017 4:04 (specimen) EST AM EST Daphne Shahid MD CHEMISTRY ORDERABLES Performing Organization Address City/State/ZIP Code Phon e Number [address] Scan, Peripheral Blood (07/08/2017 [...] [facility]/ZIP Code Phon e Number [address] (ABNORMAL) Differential, Automated (07/08/2017 4:00 AM EST) Patholo gist Method Time Signature Neutrophils % 85.4 % [facility] LABORATORY Neutr Abs (ANC) 16.07 (H) 1.70 - [facility] 6.10 [facility] x10(3)/[facility] L LABORATORY Lymphocytes % 3.5 % [facility] LABORATORY Lymphocytes Abs 0.6 (L) 0.9 - 3.2 [facility] x10(3)/[facility] LABORATORY Monocytes % 10.4 % [facility] LABORATORY Monocyte Abs 2.0 (H) 0.3 - 0.9 [facility] x10(3)/[facility] LABORATORY Eosinophils % 0.0 % [facility] LABORATORY Eosinophils Abs 0.0 0.0 - 0.4 [facility] x10(3)/[facility] LABORATORY Basophils % 0.1 % [facility] LABORATORY Basophils Abs 0.0 0.0 - 0.1 [facility] x10(3)/[facility] LABORATORY Immature [...] Organization Address City/State/[place] [address] (ABNORMAL) Hemogram (07/08/2017 4:00 AM EST) Analysis Performed At Patho logist Time Signature WBC 18.8 (H) 4.0 - 9.5 [facility] x10(3)/[facility] LABORATORY RBC 4.00 (L) 4.58 - [facility] 5.54 [facility] x10(6)/[facility] LABORATORY Hemoglobin 11.9 (L) 13.7 - [facility] 16.5 gm/dL [facility] LABORATORY Hematocrit 35.9 (L) 40.5 - [facility] 48.5 % [facility] LABORATORY MCV 89.8 82.9 - [facility] 93.1 [facility] LABORATORY MCH 29.8 27.5 - [facility] RYAN 32.1 pg [facility] LABORATORY MCHC 33.1 32.0 - [facility] 35.7 gm/dL [facility] LABORATORY Platelets 232 145 - 357 [facility] x10(3)/[facility] LABORATORY RDWSD 47.6 (H) 36.0 - [facility] RYAN 45.0 [facility] RDWCV 14.5 (H) 11.4 - [facility] RYAN 13.8 % [facility] LABORATORY MPV 9.5 7.6 - 12.9 [facility] LABORATORY nRBC % Auto 0.0 % [facility] LABORATORY nRBC Abs Auto 0.000 0.000 - [facility] 0.000 [facility] x10(3)/[facility] LABORATORY Specimen Anatomical Collection Method Collection Time Receive d Time (Source) Location / / Volume Laterality Blood specimen 07/08/2017 4:00 AM 017 4:09 (specimen) EST AM EST Resulting Agency Comment Spec In Lab Yuan Webber MD HEMATOLOGY ORDERABLES Performing Organization Address City/[facility]/[place] [address] (ABNORMAL) Electrolytes panel (07/08/2017 4:00 AM EST) athologist Signature Sodium 139 135 - 145 [facility] mmol/L [facility] LABORATORY Potassium 4.7 3.5 - 5.0 [facility] mmol/L [facility] LABORATORY Comment: result rechecked-JLK Please [...] [facility]/[place] [address] (ABNORMAL) Cardiac Enzymes (LEB/CGP) (07/08/2017 4:00 AM EST) P athologist Signature Troponin-T 1.88 (H) 0.00 - [facility] 0.00 ng/mL [facility] [...] sample may be indicated. Reference: Third [place] Definition of Myocardial Infarction. Journal of the [place] [employer] 2012;60:1581-98 CK, Total 413 (H) 0 - 200 unit/L [facility] LABORATORY Comment: result rechecked-K Specimen Anatomical Collection Method Collection Time Receive d Time (Source) Location / / Volume Laterality Blood specimen 07/08/2017 4:00 AM 017 4:09 (specimen) EST AM EST Resulting Agency Comment Spec In Lab Yuan Webber MD CHEMISTRY ORDERABLES Performing Organization Address City/State/[place] [address] (ABNORMAL) Glucose, fasting (07/08/2017 4:00 AM EST) athologist Signature Glucose 287 (H) 65 - 99 [facility] Fasting mg/dL [facility] [...] ORDERABLES Performing Organization Address City/[facility] Code Phon e Number [address] (ABNORMAL) Creatinine (07/08/2017 4:00 AM EST) Analysis Performed At Patho logist Time Signature Creatinine 1.55 (H) 0.80 - [place] RYAN 1.50 mg/dL [facility] LABORATORY Estimated GFR 44 (L) >=60 [facility] LABORATORY Comment: The reported eGFR should be multiplied b y 1.2 for patients. The MDRD is not an appropriate measure o f renal function for patients with body mass extremes or in patients with acute kidney failure. http://codetag.arGEN-X/DHnkdep http://Dely/DHMCnkf Specimen Anatomical Collection Method Collection Time Receive d Time (Source) Location / / Volume Laterality Blood specimen 07/08/2017 4:00 AM 017 4:09 (specimen) EST AM EST Resulting Agency Comment Spec In Lab Yuan Webber MD CHEMISTRY ORDERABLES Performing Organization Address City/[facility]/ZIP Code Phon e Number [address] BUN (07/08/2017 4:00 AM EST) P athologist Signature BUN 16 10 - 20 [place] RYAN mg/dL [facility] LABORATORY Specimen Anatomical Collection Method Collection Time Receive d Time (Source) Location / / Volume Laterality Blood specimen 07/08/2017 4:00 AM 017 4:09 (specimen) EST AM EST Resulting Agency Comment Spec In Lab Yuan Webber MD CHEMISTRY ORDERABLES Performing Organization Address City/[facility]/ZIP Code Phon e Number [address] (ABNORMAL) POCT Glucose (07/08/2017 3:00 AM EST) P athologist Signature POC Glucose 273 (H) 65 - 199 [facility] mg/dL [facility] LABORATORY Comment: [...] [facility]/[place] [address] (ABNORMAL) POCT Glucose (07/08/2017 1:57 AM EST) P athologist Signature POC Glucose 288 (H) 65 - 199 [facility] mg/dL [facility] LABORATORY Comment: [...] [facility]/[place] [address] (ABNORMAL) POCT Glucose (07/08/2017 1:01 AM EST) P athologist Signature POC Glucose 315 (H) 65 - 199 [facility] mg/dL [facility] LABORATORY Comment: [...] Organization Address City/State/[place] [address] (ABNORMAL) BLOOD GAS 2 ARTERIAL (07/08/2017 12:09 AM EST) athologist Signature pH Art 7.26 7.35 - [facility] (Critical) 7.45 [facility] LABORATORY Comment: Noted by instrument mechanic weapons system. pCO2 Art 41 35 - 45 mmHg [...] [facility] COHB Art 0.2 % [facility] [...] [facility] LAB[facility]ATORY Comment: Noted by instrument mechanic weapons system. FIO2 Art 40 % [facility] PF Ratio Art 240 [facility] LABORATORY Specimen Anatomical Collection Method Collection Time Receive d Time (Source) Location / / Volume Laterality Blood specimen Arterial Draw / 07/08/2017 12:09 2016 5:31 (specimen) Unknown AM EST AM EST Resulting Agency Comment Spec In Lab Samy Maldonado MD CHEMISTRY ORDERABLES Performing Organization Address City/[facility]/[place] [address] (ABNORMAL) POCT Glucose (07/07/2017 10:56 PM EST) P athologist Signature POC Glucose 292 (H) 65 - 199 [facility] mg/dL [facility] LABORATORY [...] Organization Address City/State/[place] [address] (ABNORMAL) BLOOD GAS 2 ARTERIAL (07/07/2017 10:04 PM EST) P athologist Signature pH Art 7.22 7.35 - [facility] (Critical) 7.45 [facility] LABORATORY Comment: Noted by instrument mechanic weapons system. pCO2 Art 42 35 - 45 mmHg [...] [facility] COHB Art 0.7 % [facility] [...] [facility] LABORATORY Comment: Noted by instrument mechanic weapons system. FIO2 Art 40 % [facility] PF Ratio Art 235 [facility] LABORATORY Specimen Anatomical Collection Method Collection Time Receive d Time (Source) Location / / Volume Laterality Blood specimen 07/07/2017 10:04 7 (specimen) PM EST 10:04 PM EST Daphne Shahid MD CHEMISTRY ORDERABLES Performing Organization Address City/State/[place] [address] (ABNORMAL) Hemoglobin (07/07/2017 10:00 PM EST) athologist Signature Hemoglobin 12.8 (L) 13.7 - [place] OLIVASCK 16.5 gm/dL [facility] LABORATORY Specimen Anatomical Collection Method Collection Time Receive d Time (Source) Location / / Volume Laterality Blood specimen 07/07/2017 10:00 7 (specimen) PM EST 10:13 PM EST Resulting Agency Comment Spec In Lab Yuan Webber MD HEMATOLOGY ORDERABLES Performing Organization Address City/[facility] Phon e Number [address] (ABNORMAL) Potassium (07/07/2017 10:00 PM EST) athologist [facility] Potassium 3.4 (L) 3.5 - 5.0 [facility]L [facility] LABORATORY Comment: [...] Webber MD CHEMISTRY ORDERABLES Performing Organization Address [facility] [place] [address] (ABNORMAL) POCT Glucose (07/07/2017 8:49 PM EST) athologist Signature POC Glucose 241 (H) 65 - 199 [facility] mg/dL [facility] LABORATORY Comment: [...] [facility]/ZIP Code Phon e Number [address] Prepare Albumin 5% in [...] [facility]/ZIP Code Phon e Number [address] EKG 12 Lead (07/07/2017 7:17 PM EST) Component Value Ref Range Test Analysis Performed Pathologis t Method Time At Signature Ventricular rate 75 BPM MUSE SYSTEM Atrial Rate 75 BPM MUSE SYSTEM P-R Interval 168 ms MUSE SYSTEM QRS Duration 104 ms MUSE SYSTEM Q-T Interval 462 ms MUSE SYSTEM QTC Calculated 515 ms MUSE SYSTEM (Bezet) Calculated P [employer] 52 degrees MUSE SYSTEM Calculated R [employer] -40 degrees MUSE SYSTEM Calculated T [employer] 39 degrees MUSE SYSTEM INTERPRETATION Normal sinus [...] athologist Signature pH Art 7.21 7.35 - [facility] (Critical) 7.45 [facility] LABORATORY Comment: Noted by instrument mechanic weapons system. pCO2 Art 50 (H) 35 - 45 [...] [facility] COHB Art 0.5 % [facility] [...] [facility] Comment: Noted by instrument mechanic weapons system. Please note: Patients with WBC >100,000 may [...] [facility]ICAL [facility]ENTER LABORATORY Comment: Noted by instrument mechanic weapons system. FIO2 Art 100 % [facility] PF Ratio Art 238 [facility] LABOR[facility]ORY Specimen Anatomical Collection Method Collection Time Receive d Time (Source) Location / / Volume Laterality Blood specimen 07/07/2017 6:57 PM 017 6:57 (specimen) EST PM EST Daphne Shahid MD CHEMISTRY ORDERABLES Performing Organization Address City/State/[place] [address] (ABNORMAL) BLOOD GAS 2 ARTERIAL (07/07/2017 5:31 PM EST) athologist Signature pH Art 7.29 7.35 - [facility] (Critical) 7.45 [facility] LABORATORY Comment: Noted by instrument mechanic weapons system. pCO2 Art 48 (H) 35 - 45 [...] [facility] COHB Art 0.3 % ST [...] [facility]/[place] [address] Fibrinogen (07/07/2017 5:30 PM EST) athologist Signature Fibrinogen 224 180 - 510 [facility] mg/dL [facility] LABORATORY Comment: Called by: JEET, [...] [facility]/ZIP Code Phon e Number [address] APTT (07/07/2017 5:30 PM [...] Performing Organization Address City/[facility]/ZIP [facility] Phon e Number [address] (ABNORMAL) Prothrombin Time (07/07/2017 [...] City/State/ZIP Code Phon e Number [place] [id number] (ABNORMAL) Hemogram (07/07/2017 5:30 PM EST) P athologist Signature WBC 19.6 (H) 4.0 - 9.5 [facility] x10(3)/[facility] LABORATORY RBC 3.08 (L) 4.58 - [facility] 5.54 [facility] x10(6)/[facility] LABORATORY Hemoglobin 9.2 (L) 13.7 - [facility] 16.5 gm/dL [facility] LABORATORY Hematocrit 28.0 (L) 40.5 - [facility] 48.5 % [facility] LABORATORY Comment: This result has [...] LABORATORY Platelets 155 145 - 357 x10(3)/[facility] LABORATORY RDWSD 46.5 (H) 36.0 - 45.0 fL [facility] LABORATORY RDWCV 14.1 (H) 11.4 - 13.8 % [facility] LABORATORY MPV 9.5 7.6 - 12.9 fL [facility] LABORATORY nRBC % Auto 0.0 % [facility] LABORATORY nRBC Abs Auto 0.000 0.000 - 0.000 x10(3)/[facility] LABORATORY Specimen Anatomical Collection Method Collection Time Receive d Time (Source) Location / / Volume Laterality Blood specimen 07/07/2017 5:30 PM 017 5:34 (specimen) EST PM EST Resulting Agency Comment Spec In Lab Yifan Perez MD HEMATOLOGY ORDERABLES Performing Organization Address [facility] Phon e Number [address] Prepare Platelets, Apheresis (07/07/2017 5:00 PM EST) athologist Signature Dispensed? Yes [facility] LABORATORY Specimen Anatomical Collection Method Collection Time Receive d Time (Source) Location / / Volume Laterality Blood specimen 07/07/2017 5:00 PM 017 4:58 (specimen) EST PM EST Daphne Shahid MD BLOOD BANK ORDERABLES Performing Organization Address [facility] Phon e Number [address] Platelet count (07/07/2017 4:55 PM EST) athologist Signature Platelets 177 145 - 357 [facility] x10(3)/[facility] LABORATORY Plat Immature 1.5 0.0 - 7.4 [facility] LABORATORY Comment: Limitation of the Immature Platelet Frac tion (IPF)-May be less reliable when the platelet count is less than 71o014/u L due to statistical imprecision. The IPF [...] in a decreased state of production. References: [employer] The Clinical Value of the Immature Platelet Fraction (IPF) in Cell Recovery Document Number 10-1143 12/2010 [employer] The Role of the Imm ature [...] [facility]/[place] [address] (ABNORMAL) Hemoglobin and Hematocrit, blood (07/07/2017 4:55 PM EST) P athologist Signature Hemoglobin 9.1 (L) 13.7 - 16.5 [facility] gm/dL [facility] LABORATORY Comment: This result has [...] [facility]/[place] [address] (ABNORMAL) BLOOD GAS 2 ARTERIAL (07/07/2017 4:38 PM EST) Analysis Performed At Patho logist Time Signature pH Art 7.37 7.35 - [facility] 7.45 [facility] LABORATORY pCO2 Art 44 35 - 45 [facility] LABORATORY pO2 Art 322 (H) 85 - 104 [facility] HCO3 Art 24.9 20.0 - [facility] 26.0 [facility] mmol/L [facility] LABORATORY BE Art -0.4 -3.0 - 3.0 [facility] mmol/L [facility] Hgb Blood Gas 10.1 (L) 13.7 - [facility] 16.5 gm/dL [facility] O2HB Art 98.7 (H) 94.0 - [facility] 97.0 % [facility] COHB Art 0.1 % [facility] LAB[facility]ORY Comment: Noted by instrument mechanic weapons system. Note: ??Total bilirubin higher than 20 m [...] Organization Address City/State/[place] [address] (ABNORMAL) BLOOD GAS 2 VENOUS (07/07/2017 4:06 PM EST) Analysis Performed At Patho logist Time Signature pH Cody 7.31 (L) 7.32 - [facility] 7.42 [facility] LABORATORY pCO2 Cody 47 41 - 51 [facility] LABORATORY pO2 Cody 53 (H) 25 - 40 [facility] LABORATORY HCO3 Cody 22.7 mmol/L [facility] LABORATORY BE Cody -3.7 mmol/L [facility] LABORATORY Hgb Blood Gas 10.2 (L) 13.7 - [facility] 16.5 gm/dL [facility] LABORATORY O2HB Cody 81.0 % [facility] LAB[facility]ORY Comment: Noted by instrument mechanic weapons system. Note: ??Total bilirubin higher than 20 m g/dL may lead to falsely low ionized calcium. CL Whole Blood 100 98 - 107 mmol/L [facility] LABORATORY Gluc Whole Bld 231 (H) 65 - 199 mg/dL [facility] LABORATORY Comment: Diabetes: >=200 mg/dL plus symp toms Lactate WB 1.1 0.5 - 2.2 mmol/L [facility] LABORATORY BGas Source Venous [facility] LABORATORY Specimen Anatomical Collection Method Collection Time Receive d Time (Source) Location / / Volume Laterality Blood specimen 07/07/2017 4:06 PM 017 4:06 (specimen) EST PM EST Daphne Shahid MD CHEMISTRY ORDERABLES Performing Organization Address City/State/[place] [address] (ABNORMAL) BLOOD GAS 2 ARTERIAL (07/07/2017 4:05 PM EST) Analysis Performed At Patho logist Time Signature pH Art 7.36 7.35 - [facility] 7.45 [facility] LABORATORY pCO2 Art 40 35 - 45 [facility] LABORATORY pO2 Art 282 (H) 85 - 104 [facility] LABORATORY HCO3 Art 22.1 20.0 - [facility] 26.0 [facility] mmol/L [facility] LABORATORY BE Art -3.4 (L) -3.0 - 3.0 [facility] mmol/L [facility] LABORATORY Hgb Blood Gas 10.2 (L) 13.7 - [facility] 16.5 gm/dL [facility] LABORATORY O2HB Art 98.4 (H) 94.0 - [facility] 97.0 % [facility] LABORATORY COHB Art 0.3 % [facility] [...] [facility] LABORATORY Comment: Noted by instrument mechanic weapons system. Note: ??Total bilirubin higher than 20 m [...] Organization Address City/State/[place] [address] (ABNORMAL) BLOOD GAS 2 ARTERIAL (07/07/2017 2:29 PM EST) Analysis Performed At Patho logist Time Signature pH Art 7.43 7.35 - [facility] 7.45 [facility] LABORATORY pCO2 Art 36 35 - 45 [facility] LABORATORY pO2 Art 221 (H) 85 - 104 [facility] LABORATORY HCO3 Art 23.2 20.0 - [facility] 26.0 [facility] mmol/L [facility] LABORATORY BE Art -1.2 -3.0 - 3.0 [facility] mmol/L [facility] LABORATORY Hgb Blood Gas 13.9 13.7 - [facility] 16.5 gm/dL [facility] LABORATORY O2HB Art 97.8 (H) 94.0 - [facility] 97.0 % [facility] LABORATORY COHB Art 1.1 % [facility] [...] ORDERABLES Performing Organization Address City/[facility] [place] [address] Prepare Coag Factors (Non-Hemophilia) [...] [facility]/[place] [address] Prepare RBC (07/07/2017 1:10 PM EST) P athologist Signature Dispensed? Yes [facility] LABORATORY Specimen Anatomical Collection Method Collection Time Receive d Time (Source) Location / / Volume Laterality Blood specimen 07/07/2017 1:10 PM 017 1:05 (specimen) EST PM EST Daphne Shahid MD BLOOD BANK ORDERABLES Performing Organization Address City/[facility]/[place] [address] POCT Glucose (07/07/2017 11:56 AM EST) athologist Signature POC Glucose 188 65 - 199 [facility] mg/dL [facility] LABORATORY Comment: [...] Address City/State/ZIP Code Phon e Number [address] POCT Glucose (07/07/2017 11:05 AM EST) athologist Signature POC Glucose 168 65 - 199 [facility] mg/dL [facility] LABORATORY Comment: [...] Organization Address City/State/[place] [address] POCT Glucose (07/07/2017 10:02 AM EST) athologist Signature POC Glucose 191 65 - 199 [place] mg/dL [facility] LABORATORY Comment: [...] Organization Address City/State/[place] [address] POCT Glucose (07/07/2017 7:53 AM EST) athologist Signature POC Glucose 178 65 - 199 [facility] mg/dL [facility] LABORATORY Comment: [...] Organization Address City/State/[place] [address] POCT Glucose (07/07/2017 7:03 AM EST) athologist Signature POC Glucose 188 65 - 199 [facility] mg/dL [facility] LABORATORY Comment: [...] Organization Address City/State/[place] [address] (ABNORMAL) POCT Glucose (07/07/2017 6:17 AM EST) athologist Signature POC Glucose 207 (H) 65 - 199 [facility] mg/dL [facility] LABORATORY Comment: [...] Organization Address City/State/[place] [address] Differential, Automated (07/07/2017 5:15 AM EST) P athologist Signature Neutrophils % 69.7 % [facility] LABORATORY Neutr Abs (ANC) 5.32 1.70 - [facility] 6.10 [facility] x10(3)/[facility] LABORATORY Lymphocytes % 16.3 % [facility] LABORATORY Lymphocytes Abs 1.2 0.9 - 3.2 [facility] x10(3)/[facility] LABORATORY Monocytes % 10.5 % [facility] LABORATORY Monocyte Abs 0.8 0.3 - 0.9 [facility] x10(3)/[facility] LABORATORY Eosinophils % 2.5 % [facility] LABORATORY Eosinophils Abs 0.2 0.0 - 0.4 [facility] x10(3)/[facility] LABORATORY Basophils % 0.7 % [facility] LABORATORY Basophils Abs 0.0 0.0 - 0.1 [facility] x10(3)/[facility] LABORATORY [...] 0.04 x10(3)/[facility] LABORATORY Specimen Anatomical Collection Method Collection Time Receive d Time (Source) Location / / Volume Laterality Blood specimen 07/07/2017 5:15 AM 017 5:34 (specimen) EST AM EST Resulting Agency Comment Spec In Lab Daphne Shahid MD HEMATOLOGY ORDERABLES Performing Organization Address City/State/[place] [address] (ABNORMAL) Hemogram (07/07/2017 5:15 AM EST) Analysis Performed At Patho logist Time Signature WBC 7.6 4.0 - 9.5 [facility] x10(3)/[facility] LABORATORY RBC 4.82 4.58 - [facility] 5.54 [facility] x10(6)/[facility] LABORATORY Hemoglobin 14.4 13.7 - [facility] gm/dL [facility]ATORY Hematocrit 42.1 40.5 - [facility] 48.5 % [facility] LABORATORY MCV 87.3 82.9 - [facility] 93.1 [facility] LABORATORY MCH 29.9 27.5 - [facility] 32.1 pg [facility] LABORATORY MCHC 34.2 32.0 - [facility] 35.7 gm/dL [facility] LABORATORY Platelets 188 145 - 357 [facility] x10(3)/[facility] LABORATORY RDWSD 45.1 (H) 36.0 - [facility] 45.0 [facility] LABORATORY RDWCV 14.3 (H) 11.4 - [facility] 13.8 % [facility] LABORATORY MPV 9.4 7.6 - 12.9 [facility] LABORATORY nRBC % Auto 0.0 % [facility] LABORATORY nRBC Abs Auto 0.000 0.000 - [facility] 0.000 [facility] x10(3)/[facility] LABORATORY Specimen Anatomical Collection Method Collection Time Receive d Time (Source) Location / / Volume Laterality Blood specimen 07/07/2017 5:15 AM 017 5:34 (specimen) EST AM EST Resulting Agency Comment Spec In Lab Daphne Shahid MD HEMATOLOGY ORDERABLES Performing Organization Address City/State/[place] [address] (ABNORMAL) APTT (07/07/2017 5:15 [...] Address City/State/ZIP Code Phon e Number [address] Magnesium (07/07/2017 5:15 AM EST) athologist Signature Magnesium 0.94 0.69 - 1.07 [facility] mmol/L [facility] LABORATORY Specimen Anatomical Collection Method Collection Time Receive d Time (Source) Location / / Volume Laterality Blood specimen 07/07/2017 5:15 AM 017 5:34 (specimen) EST AM EST Resulting Agency Comment Spec In Lab Daphne Shahid MD CHEMISTRY ORDERABLES Performing Organization Address City/[facility] Code Phon e Number [address] (ABNORMAL) Basic Metabolic Panel (non-fasting) (07/07/2017 5:15 AM EST) athologist Signature Glucose Lvl 203 (H) 65 - 199 [facility] mg/dL [facility] LABORATORY [...] or in patients with acute kidney failure. [email or web address]/DHnkdep [email or web address]/DHMCnkf Specimen Anatomical Collection Method Collection Time Receive d Time (Source) Location / / Volume Laterality Blood specimen 07/07/2017 5:15 AM 017 5:34 (specimen) EST AM EST Resulting Agency Comment Spec In Lab Daphne Shahid MD CHEMISTRY ORDERABLES Performing Organization Address City/State/[place] [address] (ABNORMAL) Cardiac Enzymes (LEB/CGP) (07/07/2017 5:15 AM EST) P athologist Signature Troponin-T 2.07 (H) 0.00 [facility] ng/mL [facility] LABORATORY [...] sample may be indicated. Reference: Third [place] Definition of Myocardial Infarction. Journal of the [...] Address City/State/ZIP Code Phon e Number [address] POCT Glucose (07/07/2017 5:01 AM EST) athologist Signature POC Glucose 182 65 - 199 [facility] LABORATORY Comment: [...] Address City/State/ZIP Code Phon e Number [address] POCT Glucose (07/07/2017 4:08 AM EST) athologist Signature POC Glucose 199 65 - 199 [facility] LABORATORY Comment: [...] Address City/State/ZIP Code Phon e Number [address] POCT Glucose (07/07/2017 3:03 AM EST) athologist Signature POC Glucose 188 65 - 199 [facility] mg/dL [facility] LABORATORY Comment: [...] [facility]/[place] [address] (ABNORMAL) POCT Glucose (07/07/2017 2:08 AM EST) athologist Signature POC Glucose 200 (H) 65 - 199 [facility] mg/dL [facility] LABORATORY Comment: Supplemental ranges: <140 mg/dL before meals <180 mg/dL all other times of the day Specimen Anatomical Collection Method Collection Time Receive d Time (Source) Location / / Volume Laterality Blood specimen 07/07/2017 2:08 AM 017 2:08 (specimen) EST AM EST Dahpne Shahid MD POINT OF CARE TEST ORDERABLE S Performing Organization Address City/[facility]/[place] [address] (ABNORMAL) POCT Glucose (07/07/2017 1:31 AM EST) athologist Signature POC Glucose 209 (H) 65 - 199 [facility] mg/dL [facility] LABORATORY Comment: [...] [facility]/[place] [address] XR Chest PA or [...] Signature POC Glucose 161 65 - 199 [facility] mg/dL [facility] LABORATORY [...] Organization Address City/State/[place] [address] (ABNORMAL) APTT (07/07/2017 12:00 [...] Address City/State/ZIP Code Phon e Number [address] POCT Glucose (07/06/2017 9:55 PM EST) athologist Signature POC Glucose 109 65 - 199 [place] mg/dL [facility] LABORATORY Comment: [...] [facility]/ZIP Code Phon e Number [address] POCT Glucose (07/06/2017 9:04 PM EST) athologist Signature POC Glucose 120 65 - 199 [facility] mg/dL [facility] LABORATORY Comment: [...] [facility]/ZIP Code Phon e Number [address] POCT Glucose (07/06/2017 7:45 PM EST) athologist Signature POC Glucose 158 65 - 199 [place] mg/dL [facility] LABORATORY Comment: [...] [facility]/[place] [address] Potassium (07/06/2017 7:40 PM EST) athologist Signature Potassium 3.9 3.5 - 5.0 [facility] mmol/L [facility] LABORATORY [...] [facility]/[place] [address] (ABNORMAL) Cardiac Enzymes (LEB/CGP) (07/06/2017 7:40 PM EST) athologist Signature Troponin-T 2.27 (H) 0.00 - [facility] 0.00 ng/mL [facility] LABORATORY [...] sample may be indicated. Reference: Third [place] Definition of Myocardial Infarction. Journal of the [...] [facility]/[place] [address] (ABNORMAL) POCT Glucose (07/06/2017 7:13 PM EST) P athologist Signature POC Glucose 200 (H) 65 - 199 [facility] mg/dL [facility] LABORATORY [...] [facility]/[place] [address] (ABNORMAL) APTT (07/06/2017 6:15 [...] [facility]/[place] [address] (ABNORMAL) POCT Glucose (07/06/2017 6:03 PM EST) athologist Signature POC Glucose 236 (H) 65 - 199 [place] mg/dL [facility] LABORATORY Comment: [...] [facility]/[place] [address] (ABNORMAL) POCT Glucose (07/06/2017 5:01 PM EST) athologist Signature POC Glucose 235 (H) 65 - 199 [facility] mg/dL [facility] LABORATORY Comment: Supplemental ranges: <140 mg/dL before meals <180 mg/dL all other times of the day Specimen Anatomical Collection Method Collection Time Receive d Time (Source) Location / / Volume Laterality Blood specimen 07/06/2017 5:01 PM 017 5:01 (specimen) EST PM EST Daphen Shahid MD POINT OF CARE TEST ORDERABLE S Performing Organization Address City/[facility]/[place] [address] (ABNORMAL) POCT Glucose (07/06/2017 4:06 PM EST) athologist Signature POC Glucose 202 (H) 65 - 199 [place] mg/dL [facility] LABORATORY Comment: [...] Address City/State/ZIP Code Phon e Number [address] POCT Glucose (07/06/2017 2:59 PM EST) athologist Signature POC Glucose 178 65 - 199 [facility] LABORATORY Comment: Supplemental ranges: <140 mg/dL before meals <180 mg/dL all other times of the day Specimen Anatomical Collection Method Collection Time Receive d Time (Source) Location / / Volume Laterality Blood specimen 07/06/2017 2:59 PM 017 2:59 (specimen) EST PM EST aDphne Shahid MD POINT OF CARE TEST ORDERABLE S Performing Organization Address City/[facility]/[place] [address] (ABNORMAL) Cardiac Enzymes (LEB/CGP) (07/06/2017 2:10 PM EST) athologist Signature Troponin-T 2.34 (H) 0.00 - [facility] 0.[facility] ng/mL [facility] LABORATORY [...] sample may be indicated. Reference: Third [place] Definition of Myocardial Infarction. Journal of the [...] Shahid MD CHEMISTRY ORDERABLES Performing Organization Address [facility] Phon e Number [address] POCT Glucose (07/06/2017 2:08 PM EST) P athologist Signature POC Glucose 192 65 - 199 [facility] mg/dL [facility] LABORATORY [...] [facility]/[place] [address] POCT Glucose (07/06/2017 1:04 PM EST) P athologist Signature POC Glucose 162 65 - 199 [facility]/dL [facility] LABORATORY Comment: [...] [facility]/[place] [address] [facility] [address] POCT Glucose (07/06/2017 12:05 PM EST) P athologist Signature POC Glucose 196 65 - 199 [facility] mg/dL [facility] LABORATORY [...] [facility]/ZIP Code Phon e Number [address] EKG 12 Lead (07/06/2017 12:00 PM EST) Component Value Ref Range Test Analysis Performed Pathologis t Method Time At Signature Ventricular rate 91 BPM MUSE SYSTEM Atrial Rate 91 BPM MUSE SYSTEM P-R Interval 140 ms MUSE SYSTEM QRS Duration 94 ms MUSE SYSTEM Q-T Interval 394 ms MUSE SYSTEM QTC Calculated 484 ms MUSE SYSTEM (Bezet) Calculated P [employer] 36 degrees MUSE SYSTEM Calculated R [employer] -19 degrees MUSE SYSTEM Calculated T [employer] 104 degrees MUSE SYSTEM INTERPRETATION Normal sinus rhythm MUSE SYSTEM 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) ST & T wave abnormality, consider lateral ischemia Abnormal ECG When compared with ECG of 05-JUL-2017 20:39, No significant change was found Confirmed by MD Luci, Taurus Braun ([id number]) on 07/06/2017 5:07:33 PM Specimen Anatomical Collection Method Collection Time Receive d Time (Source) Location / / Volume Laterality 07/06/2017 12:00 07/06/2017 5:07 PM EST PM EST Daphne Shahid MD ECG ORDERABLES Performing Organization Address City/State/ZIP Code Phon e Number MUSE SYSTEM ABORH Recheck Status (07/06/2017 12:00 PM EST) Patholo gist Method Time Signature ABORH Type Completed [facility] LABORATORY Specimen Anatomical Collection Method Collection Time Receive d Time (Source) Location / / Volume Laterality Blood specimen 07/06/2017 12:00 7 (specimen) PM EST 12:24 PM EST Resulting Agency Comment Spec In Lab Daphne Shahid MD BLOOD BANK ORDERABLES Performing Organization Address City/[facility]/[place] [address] Antibody screen (07/06/2017 12:00 PM EST) Patholo gist Method Time Signature Ab Screen Negative [facility] LABORATORY Expires at 07/09/2017 [facility] [id number] on: [facility] LABORATORY Specimen Anatomical Collection Method Collection Time Receive d Time (Source) Location / / Volume Laterality Blood specimen 07/06/2017 12:00 7 (specimen) PM EST 12:24 PM EST Resulting Agency Comment Spec In Lab Daphne Shahid MD BLOOD BANK ORDERABLES Performing Organization Address City/[facility]/[place] [address] ABO/Rh Typing (07/06/2017 12:00 [...] [facility]/[place] [address] Prothrombin Time (07/06/2017 11:24 [...] [facility]/ZIP Code Phon e Number [address] (ABNORMAL) APTT (07/06/2017 11:24 [...] [facility]/[place] [address] POCT Glucose (07/06/2017 11:02 AM EST) P athologist Signature POC Glucose 187 65 - 199 [facility] mg/dL [facility] LABORATORY [...] [facility]/[place] [address] POCT Glucose (07/06/2017 10:18 AM EST) P athologist Signature POC Glucose 193 65 - 199 [place] mg/dL [facility] LABORATORY Comment: [...] Organization Address City/State/[place] [address] POCT Glucose (07/06/2017 9:25 AM EST) athologist Signature POC Glucose 182 65 - 199 [facility] LABORATORY Comment: [...] Organization Address City/State/[place] [address] (ABNORMAL) Cardiac Enzymes (LEB/CGP) (07/06/2017 8:10 AM EST) athologist madvertise Troponin-T 2.26 (H) 0.00 - [place] R[place] 0.00 ng/mL [facility] LABORATORY [...] sample may be indicated. Reference: Third [place] Definition of Myocardial Infarction. Journal of the [...] [facility]/ZIP Code Phon e Number [address] Magnesium (07/06/2017 8:10 AM EST) P athologist Signature Magnesium 0.84 0.69 - 1.07 [facility] mmol/L [facility] LABORATORY Specimen Anatomical Collection Method Collection Time Receive d Time (Source) Location / / Volume Laterality Blood specimen 07/06/2017 8:10 AM 017 8:21 (specimen) EST AM EST Resulting Agency Comment Spec In Lab Daphne Shahid MD CHEMISTRY ORDERABLES Performing Organization Address City/[facility] [place] [address] (ABNORMAL) Basic Metabolic Panel (non-fasting) (07/06/2017 8:10 AM EST) P athologist Signature Glucose Lvl 199 65 - 199 [facility] mg/dL [facility] LABORATORY [...] or in patients with acute kidney failure. [email or web address] [email or web address] Specimen Anatomical Collection Method Collection Time Receive d Time (Source) Location / / Volume Laterality Blood specimen 07/06/2017 8:10 AM 017 8:21 (specimen) EST AM EST Resulting Agency Comment Spec In Lab Daphne Shahid MD CHEMISTRY ORDERABLES Performing Organization Address City/[facility]/[place] [address] POCT Glucose (07/06/2017 7:34 AM EST) P athologist Signature POC Glucose 198 65 - 199 [facility] mg/dL [facility] LABORATORY [...] [facility]/[place] [address] POCT Glucose (07/06/2017 7:03 AM EST) P athologist Signature POC Glucose 181 65 - 199 [place] mg/dL [facility] LABORATORY Comment: [...] Address City/State/ZIP Code Phon e Number [address] XR Chest PA or [...] Signature POC Glucose 172 65 - 199 [facility] LABORATORY Comment: [...] Organization Address City/State/[place] [address] POCT Glucose (07/06/2017 5:08 AM EST) athologist Signature POC Glucose 154 65 - 199 [facility] LABORATORY Comment: [...] Organization Address City/State/[place] [address] POCT Glucose (07/06/2017 4:05 AM EST) athologist Signature POC Glucose 142 65 - 199 [facility] LABORATORY Comment: [...] [facility]/ZIP Code Phon e Number [address] POCT Glucose (07/06/2017 3:00 AM EST) athologist [facility] POC Glucose 116 65 - 199 [facility] mg/dL [facility] LABORATORY [...] [facility]/ZIP Code Phon e Number [address] Potassium (07/06/2017 2:20 AM EST) athologist [facility] Potassium 3.9 3.5 - 5.0 [facility] mmol/L [facility] LABORATORY [...] [facility]/ZIP Code Phon e Number [address] Differential, Automated (07/06/2017 2:20 AM EST) athologist [facility] Neutrophils % 72.9 % [facility] LABORATORY Neutr Abs (ANC) 5.53 1.70 - [facility] 6.10 [facility] x10(3)/[facility] LABORATORY Lymphocytes % 16.4 % [facility] LABORATORY Lymphocytes Abs 1.2 0.9 - 3.2 [facility] x10(3)/[facility] LABORATORY Monocytes % 9.4 % [facility] LABORATORY Monocyte Abs 0.7 0.3 - 0.9 [facility] x10(3)/[facility] LABORATORY Eosinophils % 0.5 % [facility] LABORATORY Eosinophils Abs 0.0 0.0 - 0.4 [facility] x10(3)/[facility] LABORATORY Basophils % 0.4 % [facility] LABORATORY Basophils Abs 0.0 0.0 - 0.1 [facility] x10(3)/[facility] LABORATORY [...] 0.04 x10(3)/[facility] MAR Y [facility] LABORATORY Specimen Anatomical Collection Method Collection Time Receive d Time (Source) Location / / Volume Laterality Blood specimen 07/06/2017 2:20 AM 017 2:33 (specimen) EST AM EST Resulting Agency Comment Spec In Lab Daphne Shahid MD HEMATOLOGY ORDERABLES Performing Organization Address City/State/[place] [address] (ABNORMAL) Hemogram (07/06/2017 2:20 AM EST) Analysis Performed At Patho logist Time Signature WBC 7.6 4.0 - 9.5 [facility] x10(3)/[facility] LABORATORY RBC 4.52 (L) 4.58 - [facility] 5.54 [facility] x10(6)/[facility] LABORATORY Hemoglobin 13.4 (L) 13.7 - [place] 16.5 gm/dL [facility] LABORATORY Hematocrit 39.7 (L) 40.5 - [place] 48.5 % [facility] LABORATORY MCV 87.8 82.9 - [facility] RYAN 93.1 [facility] LABORATORY MCH 29.6 27.5 - [place] 32.1 pg [facility] LABORATORY MCHC 33.8 32.0 - [place] 35.7 gm/dL [facility] LABORATORY Platelets 189 145 - 357 [facility] x10(3)/[facility] LABORATORY RDWSD 45.6 (H) 36.0 - [facility] 45.0 [facility] LABORATORY RDWCV 14.3 (H) 11.4 - [facility] RYAN 13.8 % [facility] LABORATORY MPV 9.1 7.6 - 12.9 [facility] LABORATORY nRBC % Auto 0.0 % [facility] LABORATORY nRBC Abs Auto 0.000 0.000 - [facility] RYAN 0.000 [facility] x10(3)/[facility] LABORATORY Specimen Anatomical Collection Method Collection Time Receive d Time (Source) Location / / Volume Laterality Blood specimen 07/06/2017 2:20 AM 017 2:33 (specimen) EST AM EST Resulting Agency Comment Spec In Lab Daphne Shahid MD HEMATOLOGY ORDERABLES Performing Organization Address City/State/[place] [address] (ABNORMAL) APTT (07/06/2017 2:20 [...] Address City/State/ZIP Code Phon e Number [address] POCT Glucose (07/06/2017 2:20 AM EST) athologist Signature POC Glucose 115 65 - 199 [facility] mg/dL [facility] LABORATORY Comment: [...] Organization Address City/State/[place] [address] (ABNORMAL) Cardiac Enzymes (LEB/CGP) (07/06/2017 2:20 AM EST) athologist Signature Troponin-T 2.13 (H) 0.00 - [place] 0.00 ng/mL [facility] LABORATORY [...] sample may be indicated. Reference: Third [place] Definition of Myocardial Infarction. Journal of the [...] Organization Address City/State/[place] [address] (ABNORMAL) Hemoglobin A1c (07/06/2017 [...] with hemoglobinopathies. Additional resources are available on [facility] website. Macario HAMMOND, Ruthann J, Deysi R, et al. ??Tr anslating the A1C assay into estimated average glucose values. ??Diabetes Care 2008:31(8):3236-9017. Specimen Anatomical Collection Method Collection Time Receive d Time (Source) Location / / Volume Laterality Blood specimen 07/06/2017 2:20 AM 017 2:34 (specimen) EST AM EST Resulting Agency Comment Spec In Lab Daphne Shahid MD CHEMISTRY ORDERABLES Performing Organization Address City/State/[place] [address] (ABNORMAL) Lipid Panel (07/06/2017 2:20 AM EST) [facility] Method Time Signature Chol, Total 150 <=239 [place] mg/dL [facility] LABORATORY Triglycerides 129 <=199 [facility] mg/dL [facility] LABORATORY HDL 32 (L) >=40 [facility] mg/dL [facility] LABORATORY LDL Cholesterol 92 <=190 [place] mg/dL [facility] LABORATORY Chol/HDL Ratio 4.7 ratio [facility] LABORATORY Lipid See Note [place] Interpretation [facility] LABORATORY Comment: Lipid management should be guided by a p atient? s ASCVD risk, goals and preferences. ACC/AHA Guidelines recommend high intens ity statin if clinical ASCVD or LDL greater than or equal to 190 mg/dL. http://tinyurl.com/DEV-NBP-Wxbvyarko Adults aged 40-75 with LDL 70-189 mg/dL should have their 10 year ASCVD risk estimated with the ACC/AHA ASCVD risk es timator http://tools.acc.org/MHZHB-Ypzp-Yafnnnai r/ Statin should be discussed if risk [...] [facility]/ZIP Code Phon e Number [address] POCT Glucose (07/06/2017 1:09 AM EST) athologist Signature POC Glucose 121 65 - 199 [facility] mg/dL [facility] LABORATORY Comment: [...] [facility]/[place] [address] POCT Glucose (07/06/2017 12:06 AM EST) athologist Signature POC Glucose 147 65 - 199 [facility] RYAN mg/dL [facility] LABORATORY Comment: [...] Organization Address City/State/[place] [address] (ABNORMAL) POCT Glucose (07/05/2017 10:56 PM EST) athologist Signature POC Glucose 200 (H) 65 - 199 [facility] mg/dL [facility] LABORATORY Comment: [...] Organization Address City/State/[place] [address] (ABNORMAL) POCT Glucose (07/05/2017 10:05 PM EST) athologist Signature POC Glucose 225 (H) 65 - 199 [facility] mg/dL [facility] LABORATORY Comment: [...] Organization Address City/State/[place] [address] (ABNORMAL) POCT Glucose (07/05/2017 9:02 PM EST) athologist Signature POC Glucose 301 (H) 65 - 199 [facility] mg/dL [facility] LABORATORY Comment: [...] Organization Address City/State/[place] [address] XR Chest PA or [...] 474 ms MUSE SYSTEM (Bezet) Calculated P [employer] 50 degrees MUSE SYSTEM Calculated R [employer] -28 degrees MUSE SYSTEM Calculated T [employer] 90 degrees MUSE SYSTEM INTERPRETATION Sinus tachycardia [...] (ABNORMAL) Differential, Automated (07/05/2017 8:20 PM EST) [facility] gist Method Time Signature Neutrophils % 88.4 % [facility] LABORATORY Neutr Abs (ANC) 9.08 (H) 1.70 - [facility] 6.10 [facility] x10(3)/[facility] LABORATORY Lymphocytes % 7.0 % [facility] LABORATORY Lymphocytes Abs 0.7 (L) 0.9 - 3.2 [facility] x10(3)/[facility] LABORATORY Monocytes % 3.7 % [facility] LABORATORY Monocyte Abs 0.4 0.3 - 0.9 [facility] x10(3)/[facility] LABORATORY Eosinophils % 0.1 % [facility] LABORATORY Eosinophils Abs 0.0 0.0 - 0.4 [facility] x10(3)/[facility] LABORATORY Basophils % 0.2 % [facility] LABORATORY Basophils Abs 0.0 0.0 - 0.1 [facility] x10(3)/[facility] LABORATORY Immature [...] Organization Address City/State/[place] [address] (ABNORMAL) Hemogram (07/05/2017 8:20 PM EST) Analysis Performed At Patho logist Time Signature WBC 10.3 (H) 4.0 - 9.5 [facility] RYAN x10(3)/[facility] LABORATORY RBC 4.64 4.58 - [place] 5.54 [facility] x10(6)/[facility] LABORATORY Hemoglobin 14.1 13.7 - [place] 16.5 gm/dL [facility] LABORATORY Hematocrit 40.8 40.5 - [facility] RYAN 48.5 % [facility] LABORATORY MCV 87.9 82.9 - [facility] RYAN 93.1 [facility] LABORATORY MCH 30.4 27.5 - [place] 32.1 pg [facility] LABORATORY MCHC 34.6 32.0 - [facility] RYAN 35.7 gm/dL [facility] LABORATORY Platelets 204 145 - 357 [facility] x10(3)/[facility] LABORATORY RDWSD 46.1 (H) 36.0 - [facility] RYAN 45.0 [facility] LABORATORY RDWCV 14.5 (H) 11.4 - [facility] RYAN 13.8 % [facility] LABORATORY MPV 9.7 7.6 - 12.9 [facility] nRBC % Auto 0.0 % [facility] LABORATORY nRBC Abs Auto 0.000 0.000 - [facility] RYAN 0.000 [facility] x10(3)/[facility] LABORATORY Specimen Anatomical Collection Method Collection Time Receive d Time (Source) Location / / Volume Laterality Blood specimen 07/05/2017 8:20 PM 017 8:27 (specimen) EST PM EST Resulting Agency Comment Spec In Lab Daphne Shahid MD HEMATOLOGY ORDERABLES Performing Organization Address City/State/ZIP Code Phon e Number [place] [address] APTT (07/05/2017 8:20 PM [...] Organization Address City/State/[place] [address] (ABNORMAL) Cardiac Enzymes (LEB/CGP) (07/05/2017 8:20 PM EST) athologist [facility] Troponin-T 2.11 (H) 0.00 - [facility] 0.00 ng/mL [facility] [...] sample may be indicated. Reference: Third [place] Definition of Myocardial Infarction. Journal of the [...] Performing Organization Address City/[facility]/ZIP [facility] [place] [address] (ABNORMAL) Magnesium (07/05/2017 8:20 PM EST) P athologist Signature Magnesium 0.68 (L) 0.69 - 1.07 [facility] mmol/L [facility] LABORATORY Specimen Anatomical Collection Method Collection Time Receive d Time (Source) Location / / Volume Laterality Blood specimen 07/05/2017 8:20 PM 017 8:27 (specimen) EST PM EST Resulting Agency Comment Spec In Lab Daphne Shahid MD CHEMISTRY ORDERABLES Performing Organization Address City/[facility]/[place] [address] (ABNORMAL) Basic Metabolic Panel (non-fasting) (07/05/2017 8:20 PM EST) P athologist Signature Glucose Lvl 321 (H) 65 - 199 [facility] mg/dL [facility] LABORATORY [...] or in patients with acute kidney failure. [email or web address] [email or web address] Specimen Anatomical Collection Method Collection Time Receive d Time (Source) Location / / Volume Laterality Blood specimen 07/05/2017 8:20 PM 017 8:27 (specimen) EST PM EST Resulting Agency Comment Spec In Lab Daphne Shahid MD CHEMISTRY ORDERABLES Performing Organization Address City/State/[place] [address] (ABNORMAL) POCT Glucose (07/05/2017 7:32 PM EST) P athologist Signature POC Glucose 296 (H) 65 - 199 [facility] mg/dL [facility] LABORATORY [...] Organization Address City/State/[place] [address] CARDIAC CATHETERIZATION (07/05/2017 6:47 PM EST) Anatomical Region Laterality Modality Other Specimen (Source) Anatomical Location Collection Method / Collectio n Time Received Time / Laterality Volume Narrative 07/05/2017 7:27 PM EST ?[facility] ? Cardiac Cathete rization/Intervention Report ? Patient Name: Gregory Hoang ? Procedure Date: 07/05/2017 ? A #: [id number] ? Primary Physician: Clarisa, Jet T ? Case #: [id number] ? File Name: [id number] ? Catheterization Order Number: [id number] ? [facility] ? Final Report [place], [place] ? Patient Name: ? Gregory Natalya ?ID#: ?[id number] ? : ?1945 ? Procedure Date: ? [...] presented with: non -STEMI (w/i 7 days). [place] ?[employer] Society angina c lass was IV. [...] angio graphy and IABP insertion in laborer stores. ? Jet Mckenna M.D. ? Electronically Signed by: Jet bunch M.D. ? Report Finalized: 07/05/2017 ??19:23 ? Report Last Ammended: 10/26/2017 ??10:29 ? Procedure Note Jet Mckenna MD - 10/26/2017Formatt ing of this note might be different from the original. [facility] Cardiac Catheterization/Intervention Re port Patient Name: Gregory Hoang Procedure Date: 07/05/2017 A #: [id number] Primary Physician: Jet Mckenna Case #: [id number] File Name: [id number] Catheterization Order Number: [id number] [facility] Final Report [place], [place] Patient Name: Gregory Hoang ID#: [id number] : 1945 Procedure Date: July 05, [...] presented with: non-STEMI ( w/i 7 days). [place] [employer] angina class was IV. No [...] angiograph y and IABP insertion in laborer stores. Jet Mckenna M.D. Electronically Signed by: Jet [...] Mccollum ? (Age): 1945(72y) Med Rec#: ? [id number] ?Sex: ?M ? Site Loc: ? [facility] ?Ht / Wt: ??173(cm)/86(kg) Pt. Loc: ?CCU ? BSA: ?2 Study Date: ?? 07/05/2017 ?Pt. Type: Inpatient Tape: ? Referring: Daphne Shahid ([id number]) Referring: MANDA ALCANTAR Reading: Blade Preston ([id number]) Highway Maintenance Crew Worker: Dayami Paula BA, [facility] Diagnosis: *ICD-10-PCS Non-ST elevation (NSTEMI) m [...] E-wave Vmax ?0.8 ?m/sec ? MV deceleration [id number] ?msec ? MV A-wave Vmax ?0.8 ?m/sec [...] 07/06/2017 08 :53:15 Images reviewed and interpretation [facility] Cardiac Ultrasound Laboratory Procedure Note Blade Preston MD - 07/06/2017Formatt ing of this note might be different from the original. Procedure: Transthoracic Echocardiogram Patient: NATALYA MCBRIDE(Age): [birth year]72y) Med Rec#: [id number] Sex: M Site Loc: [facility] Ht / Wt: 173(cm)/86(kg) Pt. Loc: CCU BSA: 2 Study Date: 07/05/2017 Pt. Type: Inpatie nt Tape: Referring: Daphne Shahid ([id number]) Referring: MANDA ALCANTAR Reading: Blade Preston ([id number]) Highway Maintenance Crew Worker: Dayami Paula BA, [facility] Diagnosis: *ICD-10-PCS Non-ST elevation (NSTEMI) m [...] MV E-wave Vmax 0.8 m/sec MV deceleration [id number] msec MV A-wave Vmax 0.8 m/sec MV [...] 08:53:15 Images reviewed and interpretation ver ied [facility] Cardiac Ultrasound Laboratory Daphne Shahid MD ECHO ORDERABLES Differential, Automated (07/05/2017 4:55 PM EST) athologist Signature Neutrophils % 77.0 % [facility] LABORATORY Neutr Abs (ANC) 5.26 1.70 - [facility] 6.10 [facility] x10(3)/[facility] LABORATORY Lymphocytes % 13.3 % [facility] LABORATORY Lymphocytes Abs 0.9 0.9 - 3.2 [facility] x10(3)/[facility] LABORATORY Monocytes % 8.2 % [facility] LABORATORY Monocyte Abs 0.6 0.3 - 0.9 [facility] x10(3)/[facility] LABORATORY Eosinophils % 0.7 % [facility] LABORATORY Eosinophils Abs 0.0 0.0 - 0.4 [facility] x10(3)/[facility] LABORATORY Basophils % 0.4 % [facility] LABORATORY Basophils Abs 0.0 0.0 - 0.1 [facility] x10(3)/[facility] LABORATORY [...] 0.04 x10(3)/[facility] MAR Y [facility] LABORATORY Specimen Anatomical Collection Method Collection Time Receive d Time (Source) Location / / Volume Laterality Blood specimen 07/05/2017 4:55 PM 017 5:24 (specimen) EST PM EST Resulting Agency Comment Spec In Lab Daphne Shahid MD HEMATOLOGY ORDERABLES Performing Organization Address City/State/[place] [address] (ABNORMAL) Hemogram (07/05/2017 4:55 PM EST) Analysis Performed At Patho logist Time Signature WBC 6.8 4.0 - 9.5 [facility] x10(3)/[facility] LABORATORY RBC 4.67 4.58 - [facility] 5.54 [facility] x10(6)/[facility] LABORATORY Hemoglobin 14.0 13.7 - [place] [facility] 16.5 gm/dL [facility] LABORATORY Hematocrit 41.0 40.5 - [place] [facility] 48.5 % [facility] LABORATORY MCV 87.8 82.9 - [facility]1 [facility] LABORATORY MCH 30.0 27.5 - [place] [facility] 32.1 pg [facility] LABORATORY MCHC 34.1 32.0 - [place] [facility] 35.7 gm/dL [facility] LABORATORY Platelets 197 145 - 357 [facility] x10(3)/[facility] LABORATORY RDWSD 46.4 (H) 36.0 - [place] [facility] 45.0 [facility] LABORATORY RDWCV 14.5 (H) 11.4 - [place] RYAN 13.8 % [facility] LABORATORY MPV 9.7 7.6 - 12.9 [facility] LABORATORY nRBC % Auto 0.0 % [facility] LABORATORY nRBC Abs Auto 0.000 0.000 - [place] 0.000 [facility] x10(3)/[facility] LABORATORY Specimen Anatomical Collection Method Collection Time Receive d Time (Source) Location / / Volume Laterality Blood specimen 07/05/2017 4:55 PM 017 5:24 (specimen) EST PM EST Resulting Agency Comment Spec In Lab Daphne Shahid MD HEMATOLOGY ORDERABLES Performing Organization Address City/State/[place] [address] (ABNORMAL) Cardiac Enzymes (LEB/CGP) (07/05/2017 4:55 PM EST) P athologist Signature Troponin-T 1.69 (H) 0.00 - [place] 0.00 ng/mL [facility] LABORATORY [...] sample may be indicated. Reference: Third [place] Definition of Myocardial Infarction. Journal of the [...] [facility]/[place] [address] [address] (ABNORMAL) pro-Brain Natriuretic Peptide (07/05/2017 4:55 PM EST) P athologist Signature ProBNP 1,598 (H) <=125 [facility]/mL [facility] Specimen Anatomical Collection Method Collection Time Receive d Time (Source) Location / / Volume Laterality Blood specimen 07/05/2017 4:55 PM 017 5:24 (specimen) EST PM EST Resulting Agency Comment Spec In Lab Daphne Shahid MD CHEMISTRY ORDERABLES Performing Organization Address City/State/[place] [address] Magnesium (07/05/2017 4:55 PM EST) P athologist Signature Magnesium 0.78 0.69 - 1.07 [facility] mmol/L [facility] Specimen Anatomical Collection Method Collection Time Receive d Time (Source) Location / / Volume Laterality Blood specimen 07/05/2017 4:55 PM 017 5:24 (specimen) EST PM EST Resulting Agency Comment Spec In Lab Daphne Shahid MD CHEMISTRY ORDERABLES Performing Organization Address City/State/[place] [address] (ABNORMAL) Basic Metabolic Panel (non-fasting) (07/05/2017 4:55 PM EST) P athologist Signature Glucose Lvl 230 (H) 65 - 199 [facility] mg/dL [facility] [...] or in patients with acute kidney failure. http://codetag.arGEN-X/DHnkdep http://codetag.arGEN-X/DHMCnkf Specimen Anatomical Collection Method Collection Time Receive d Time (Source) Location / / Volume Laterality Blood specimen 07/05/2017 4:55 PM 017 5:24 (specimen) EST PM EST Resulting Agency Comment Spec In Lab Daphne Shahid MD CHEMISTRY ORDERABLES Performing Organization Address City/[facility]/[place] [address] (ABNORMAL) APTT (07/05/2017 4:55 [...] [facility]/[place] [address] (ABNORMAL) POCT Glucose (07/05/2017 4:53 PM EST) athologist Signature POC Glucose 208 (H) 65 - 199 [facility] mg/dL [facility] LAB[facility] [...] [facility]/[place] [address] EKG 12 Lead (07/05/2017 4:32 PM EST) Component Value Ref Range Test Analysis Performed Pathologis t Method Time At Signature Ventricular rate 97 BPM MUSE SYSTEM Atrial Rate 97 BPM MUSE SYSTEM P-R Interval 148 ms MUSE SYSTEM QRS Duration 96 ms MUSE SYSTEM Q-T Interval 364 ms MUSE SYSTEM QTC Calculated 462 ms MUSE SYSTEM (Bezet) Calculated P [employer] 48 degrees MUSE SYSTEM Calculated R [employer] -33 degrees MUSE SYSTEM Calculated T [employer] 98 degrees MUSE SYSTEM INTERPRETATION Normal sinus [...] Coronary atherosclerosis of unspecified type of vessel, [place] or graft Cardiomyopathy, ischemic Other specified forms [...] sources in 24 hours., Routine, Is ketorolac (Toradol) IV contraindicated? Yes, Can this patient tolerate [...] sources in 24 hours., Routine, Is ketorolac (Toradol) IV contraindicated? Yes, Can this patient tolerate [...] dose on Wed07/07/17 at 2100, Until Discontinued, [place] teeth, Routine Given 07/08/2017 10:06 PM EST [...] or norepinephrine is ineffective. Call pager # [phone] if initiated. Rate/Dose Change 07/08/2017 7:01 PM [...] if phenyleprine and/or vasopressin ineffective.Call pager # [phone] if initiated., Routine Rate/Dose Change 07/09/2017 1:24 [...] L/min/M2. Maximum volume 2 L. Call warehouse distribution associate for additional fluid orders: pager #[phone]. Rate/Dose Verify 07/08/2017 4:00 AM EST 100 [...] Jacobson, VAMSI)[id number] (New Bag - Provider: Myrna Yonug, VAMSI)1002 (Stopped - Provider: Myrna Young RN) [...]
Routine documented in this encounter Care Teams Odd Job Worker Relationship Specialty Start Date End Date Lovely Vicente MD PCP - General 04/16/[address] [place] [address] [address] [facility] [address] [place] [address] documented as of this encounter
--- OUTSIDE RECORDS SUMMARY | 2022-05-15 08:28 | XMS_ITS | Encounter Summary ---
:1945 Author Organization [facility] [place] [place] [address] Care Team Providers Name Role Phone Lovely Vicente MD Primary Care Provider Encounter Details Date Type Department Care Team Description 07/08/2017 Orders Only [facility] [place] [address] Social History Tobacco Use Types Packs/Day [...] MD [facility] [place] [address] (Wo rk) 05/28/2022 Laboratory Appointment Lab 05/28/2022 Office Visit Cardiology Zulma Dolan MD [facility] [place] [address] Liz Poole PA [facility] [place] [address] 06/10/2022 Office Visit Dermatology Laura Scherer MD [facility] ER [address] [place] [address] (Wo rk) documented as of this encounter [...] Mccollum ? (Age): 1945(72y) Med Rec#: ? [id number] ?Sex: ?M ? Site Loc: ? Ht / Wt: ??(cm)/ (kg) ? Pt. Loc: ? Study Date: ?? 07/07/2017 ?Pt. Type: Tape: ? Referring: Yuan Retana Reading: Yifan Perez MD ([id number]) Performing: Yifan Perez MD ([id number]) Diagnosis: SUMMARY: 1. Intraoperative AVELINO performed at the [facility] of Dr. Mike for [...] ? Mid-Inferior ?Hypokinetic ? Mid-Inferoseptal ?Hypokinetic ? [place]-Septal ? Hypokinetic ? [place]-Anterior ? Hypokinetic ? [place]-Lateral ?Hypokinetic ? [place]-Inferior ? Hypokinetic ? [place]-Tip ?Not Seen ? This report has been electronically sign ed by: _ Yifan Perez MD ? 07/08/2017 12 :25:18 Images reviewed and interpretation verif ied [facility] Cardiac Ultrasound Laboratory Procedure Note Yifan Perez MD - 07/08/2017Formatt ing of this note might be different from the original. Procedure: Transesophageal Echocardiogra m Patient: NATALYA MCBRIDE(Age): [birth year]72y) Med Rec#: [id number] Sex: M Site Loc: Ht / Wt: (cm)/ (kg) Pt. Loc: Study Date: 07/07/2017 Pt. Type: Tape: Referring: Yuan Retana Reading: Yifan Perez MD ([id number]) Performing: Yifan Perez MD ([id number]) Diagnosis: SUMMARY: 1. Intraoperative AVELINO performed at [...] Hypokinetic Mid-Posterolateral Hypokinetic Mid-Inferior Hypokinetic Mid-Inferoseptal Hypokinetic [place]-Septal Hypokinetic [place]-Anterior Hypokinetic [place]-Lateral Hypokinetic [place]-Inferior Hypokinetic [place]-Tip Not Seen This report has been electronically sign ed by: _ Yifan Perez MD 07/08/2017 12:25:18 Images reviewed and interpretation elvie hwang [facility] Cardiac Ultrasound Laboratory Unknown ECHO ORDERABLES documented in this encounter Visit Diagnoses Not on filedocumented in this encounter Care Teams Dietary Supervisor Relationship Specialty Start Date End Date Lovely Vicente MD PCP - General 04/16/[address] [place] [address] documented as of this encounter
--- OUTSIDE RECORDS SUMMARY | 2022-05-15 08:29 | XMS_ITS | Encounter Summary ---
:1945 Author Organization [facility] Address [place] [address] Care Team Providers Name Role Phone Lovely Vicente MD Primary Care Provider Reason for Visit Auth/Cert Specialty Diagnoses / Procedures Referred By Contact Refer red To Contact Diagnoses STEMI (ST elevation myocardial infarction) NSTEMI STEMI Procedures CARDIAC CATHETERIZATION NAYE IPI Referral ID Status Reason Start Date Expiration Date Visits Requ ested Visits Authorized [id number] 1 1 Encounter Details Date Type Department Care Team Description 07/07/2017 Surgery Main Operating Room Yuan Webber, @ CABG, USING ARTERIAL Barbara Ocampo MD GRAFT;SINGLE ARTERIAL Hospital [facility] GRAFT (WRVU 33.75) [facility] [address] Sidd[place] [address] SURGERY [phone] [place], [place] [address] (Wo rk) Social History Tobacco [...] in this encounter Discharge Summaries Martha Teague, DAIRY NUTRITION CONSULTANT - 07/14/2017 9:38 AM EST Inpatient - [...] , @ 1:20p Patient to follow-up with [employer] Court [employer] Appeals Law Clerk/heart failure team in one week. An appointment will be made for you. You may call [phone] Patient to follow-up with Cardiac Surgery, Dr. Yuan Webber, in ~ 4 weeks with CXR, EKG. Inpatient Provider Contact Information: [facility] Section of Cardiac Surgery [facility] [address] FAX [phone] Discharge Diagnoses (Hospital Problems) Primary Diagnoses: CAD [...] by mouth daily. 90 tablet 3 07/05/2017 [id number] ??? ascorbic acid, vitamin C, (VITAMIN C) [...] Course: Gregory Hoang was admitted to [facility] on 07/05/2017 via the Cardiology Service. [...] not take or discontinue any prescription or kqlp-scj-zghmhzh medications without asking your doctor or pharmacist [...] day to have your insulin doses adjusted. [facility] Endocrine clinic office Discharge Instructions: Call your doctor if: You have a fever of greater than 101 degrees, shaking chills, if you develop redness or drainage from your incision sites, or if you have questions. Please call your surgeon's office if you have any discharge or drainage from your chest incision. Your surgeon, Dr. Yuan Webber and/or the Cardiac Surgery Physician Satellite Dish Installer Team may be reached at . [...] Dr. Yuan Webber. You may use a [place] Track or treadmill but avoid any pulling [...] with the surgeon. Do not ride motorcycles, [employer] Safety's tractors or horses. Avoid the use of [...] should resume a low fat, low cholesterol, [employer] Heart Association Diet/Diabetic diet. Driving: No driving [...] , @ 1:20p Patient to follow-up with [employer] Appeals Law Clerk/heart failure team in one week. Appointment will be made for you. You may call [phone] Patient to follow-up with Cardiac Surgery, Dr. Yuan Webber, in ~ 4 weeks with CXR, EKG. Cardiac Rehabilitation: Gregory Hoang was seen today regarding participation in the outpatient Phase 2 Cardiac Rehabilitation at [facility]. The patient agrees to a referral to this program. The referral will be sent at discharge and the patient should be contacted by the Program within 1- 2 weeks from discharge. ?? Future Appointments and Orders Future Appointments Provider Department Dept Phone 09/07/2017 3:00 PM LAB, THREE L Lab 3L [facility] [phone] 09/07/2017 4:00 PM Luz Prescott MD Endocrinology at [place] [phone] Future Orders Complete By Expires EKG 12 Lead [EKG1 Custom] 08/14/2017 02/13/2018 Process Instructions: Scheduling Instructions: Questions: Which DH location will this be performed?: [place] Is a rhythm strip needed?: No If EKG Reason is Pre-op Evaluation, indicate diagnosis for surgery.: XR Chest PA & Lateral (Generic) [[id number] Custom] 08/14/2017 02/13/2018 Process Instructions: Scheduling Instructions: Questions: Where will study be performed?: [place] [facility] Portable exam?: Reason for exam and clinical history: CABG x 3 Other pertinent information: Stat read required?: Date of injury if applicable: Requested Time: Referral to Cardiac Rehab [UNR049 Custom] As directed Process Instructions: If no progress note charted, please enter Clinical details in comments. Scheduling Instructions: Questions: My question or request is: s/p CABG. Cardiac rehab at [facility] Referral to Home Health - at DISCHARGE [NGX8527 CPT(R)] As directed Process Instructions: Scheduling Instructions: Comments: DOCUMENTATION FOR VNA SERVICES (INCLUDING THOSE PATIENTS WITH MEDICARE COVERAGE REQUIRING HOME VNA SERVICES AND/OR HOSPICE SERVICES) PATIENT'S LOCATION: Gregory Hoang [address] [place] [address] [place] [phone] (home) Telephone Information: Prospect Manager's Name: self In discussion with the attending physician, it is certified that this patient is under their care and that they, or a Nurse Practitioner, or Physician Satellite Dish Installer who is working directly with them, [...] HEALTH AGENCY: [facility] Mungu[facility] ([facility] [employer]-is in [place]) PHONE: [phone] FAX: [phone] RN orders: Cardiopulmonary assessment, incisional assessment, assess vital signs, assessment of rehab progress, medication management and effectiveness, home safety evaluation. Please draw INR if indicated and send result to:Dr Vicente [phone] PT ORDERS: Continue rehab for endurance, gait stability and strength with mobility and transfers. Home safety evaluation. Home exercise program if appropriate. Start of Care Date:24-48 hours after discharge SPECIAL INSTRUCTIONS: For any follow up questions, needs, or issues please call the Cardiac Surgery Office at [phone] FOR MEDICARE ONLY: (please delete this section [...] Questions: Agency name and contact information: [facility] Patient location post discharge: home What services are requested: Registered Nurse Physical Therapy Start date: Responsible MD post discharge contact info: PCP Arrangements for VNA/home care: As above. VN RN OR PCP TO PLEASE REMOVE CHEST TUBE SUTURES ON OR AFTER 07/17/2017 Signed: Martha Teague APRN [facility] Section of Cardiac Surgery [facility] [address] FAX [phone] Date: 07/14/2017 CC: MD Ivania Cr Betsy, PA [address] [place] [phone] documented in this encounter Discharge Instructions Discharge [...] day to have your insulin doses adjusted. [facility] Endocrine clinic office Patient InstructionsStMartha mcdonald APRN [...] not take or discontinue any prescription or nffq-eid-afmywkx medications without asking your doctor or pharmacist [...] day to have your insulin doses adjusted. [facility] Endocrine clinic office ? Discharge Instructions: ?? Call your doctor if: You have a fever of greater than 101 degrees, shaking chills, if you develop redness or drainage from your incision sites, or if you have questions. Please call your surgeon's office if you have any discharge or drainage from your chest incision. Your surgeon, Dr. Yuan Webber and/or the Cardiac Surgery Physician Satellite Dish Installer Team may be reached at . [...] Dr. Yuan Webber. You may use a [place] Track or treadmill but avoid any pulling [...] with the surgeon. Do not ride motorcycles, [employer]'s tractors or horses. Avoid the use of [...] should resume a low fat, low cholesterol, [employer] Heart Association Diet/Diabetic diet. ?? Driving: No [...] @ 1:20p ?? Patient to follow-up with [employer] Law Clerk/heart failure team in one week. An appointment has been made for you, you can call [phone] ?? Patient to follow-up with Cardiac Surgery, Dr. Yuan Webber, in ~ 4 weeks with CXR, EKG. ? Cardiac Rehabilitation: Gregory Hoang??was seen today regarding participation in the outpatient Phase 2 Cardiac Rehabilitation at [facility]. ?? The patient agrees to a referral to this program.? The referral will be sent at discharge and the patient should be contacted by the Program within 1- 2 weeks from discharge. ? Future Appointments and Orders Future Appointments Provider Department Dept Phone ?? 09/07/2017 3:00 PM LAB, THREE L Lab 3L [facility] [phone] ?? 09/07/2017 4:00 PM Luz Prescott MD Endocrinology at [place] [phone] Future Orders Complete By Expires ?? EKG 12 Lead [EKG1 Custom] 08/14/2017 02/13/2018 ?? Process Instructions: ? Scheduling Instructions: ? Questions: ? Which location will this be performed?: [place] ?? Is a rhythm strip needed?: No ?? If EKG Reason is Pre-op Evaluation, indicate diagnosis for surgery.: ?? XR Chest PA & Lateral (Generic) [[id number] Custom] 08/14/2017 02/13/2018 ?? Process Instructions: ? Scheduling Instructions: ? Questions: ? Where will study be performed?: [place] [facility] ?? Portable exam?: ?? Reason for exam and clinical history: CABG x 3 ?? Other pertinent information: ?? Stat read required?: ?? Date of injury if applicable: ?? Requested Time: ?? Referral to Cardiac Rehab [[id number] Custom] As directed ? Process Instructions: ?? If no progress note charted, please enter Clinical details in comments. ?? Scheduling Instructions: ? Questions: ? My question or request is: s/p CABG. Cardiac rehab at [facility] ? Arrangements for VNA/home care: [...] referrals are placed. Patient requests referral to [facility] [employer]. PHONE: [phone] FAX: [phone] Expected date of discharge: 07/14 Referral routed to the Software Quality Tester for matching with agency/vendor and to provide [...] day to have your insulin doses adjusted. [facility] Endocrine clinic office aKthie Carrera APRN [facility] Endocrinology Diabetes Management Pager [phone] 20 minutes of this 35 minute visit [...] to : [facility]man[facility] Munguia ([facility] [employer]-is in [place]) PHONE: [phone] FAX: [phone]. Expected date of discharge: 07/14/17 Referral routed to the Software Quality Tester for matching with agency/vendor and to provide [...] hours. If BG remains greater than 240, mewqhp60 units (no more than three times) &??call [...] Will continue to follow Katerin Azul APRN [facility] Endocrinology Diabetes Management Pager [phone] 15 minutes of this 25 minute visit [...] of infiltration/extravasation Discussed plan of care with EMBROIDERY FINISHER and RN. Elevate exrtemity and apply intermittent Warm compresses. Name of MD contacted Dr. Shaw Brown 07/13/2017 @ 0621 Name of RN contacted Ale Rangel RN Name of Pharmacist if consulted NA Name of Plastics MD ( if consulted) NA (Mandatory photo for infiltrations/ extravasations scoring a stage 2 or greater, but recommended forstage 1)( include measuring tape and identifier in the photo) STRATEGIC SOURCING MANAGER CARING FOR THIS PATIENT WILL CONTINUE [...] measuring tape and identifier in the photo) STRATEGIC SOURCING MANAGER CARING FOR THIS PATIENT WILL CONTINUE [...] infiltrates addressed by this caption writer.All of MrMadiha Hoang's responses were entirely appropriate. Images of infiltrates attached here. L Martha Teague, DAIRY NUTRITION CONSULTANT - 07/13/2017 8:01 AM EST Cardiac Surgery Progress Note: ID: [id number] 72 year old male POD#6 s/p CABGx3 [...] discharge planning needs. I have provided the [facility], Office of Care Management letter from the Electromechanical Equipment Assembler pertaining to rehab referrals. I have also provided a letter describing our affiliations within the [facility] and educated them about their [...] date of discharge: 07/14 Note routed to Software Quality Tester who will communicate referrals to facilities and [...] hours. If BG remains greater than 240, conwob80 units (no more than three times) & [...] hours. If BG remains greater than 240, vzivby55 units (no more than three times) & call for new basal insulin orders. ??If less than 240 after two hours, give no insulin and resume prior schedule. Will continue to follow Katerin Azul APRN [facility] Endocrinology Diabetes Management Pager [phone] 20 minutes of this 35 minute visit was spent with the patient in counseling on diabetes and treatment plan, reviewing all glucose and insulin data as well as relevant laboratory results with the patient, and coordination of care on the inpatient unit including nursing and primary team. Makayla Stevenson APRN - 07/12/2017 9:52 AM EST Cardiac Surgery Progress Note: ID: [id number] 72 year old male POD#5 s/p CABGx3 [...] 07/11/2017 7:18 PM EST Patient arrived from [facility]. VSS. MSI dressing pulled off with fresh [...] hours. If BG remains greater than 240, ydjizh02 units (no more than three times) & [...] AM EST Cardiac Surgery Progress Note: ID: [id number] 72 year old male POD#4 s/p CABGx3 [...] hours. If BG remains greater than 240, ybylad81 units (no more than three times) & [...] AM EST Cardiac Surgery Progress Note: ID: [id number] 72 year old male POD#3 s/p CABGx3 [...] Gas) No results found for: PHART, PO2ART, AMN0HPX Assessment/Plan: 72 year old male POD#3 s/p [...] Mami Thao - 07/09/2017 6:29 PM EST Marketing Services Manager Encounter Note Patient Name: Gregory Hoang : [id number] MR#: [id number] Admit Date: 07/05/2017 4:20 PM Hospital Day 4 days Narrative: Patient was sitting in chair, hugging heart pillow, opened his eyes, nodding to come into room Assessment: Patient was sleepy. Intervention and Outcome: Introduced financial services consultant services and patient reached his hand out in appreciation. Follow-up: Marketing Services Manager remains available for support. Time in [...] 10:45 AM EST Report given to staff technologist to cover care Maddison Cee PA - 07/09/2017 9:00 AM EST Cardiac Surgery Progress Note: ID: [id number] 72 year old male POD#2 s/p CABGx3 [...] completed shifts: In: 7977.4 [I.V.:7477.4; Other:500] Out: 3295 [Urine:3000; Other:615] I- 4 L O- 2.7 [...] Surgeon on rounds. Signed: STEPHANIE Iqbal [facility] Section of Cardiac Surgery Date: 07/09/2017 [...] when IABP d/c'ed. Gretchen Carolina, PT Pager [phone] Maddison Cee PA - 07/08/2017 11:27 AM EST Cardiac Surgery Progress Note: ID: [id number] 72 year old male POD#1 s/p CABGx3 [...] Surgeon on rounds. Signed: STEPHANIE Iqbal [facility] Section of Cardiac Surgery Date: 07/08/2017 [...] in place in R femoral. No hematoma. DIGITAL ASSISTANT- Intact Psych- Anxious Skin- Dry, no peripheral [...] intact. IABP in place in R femoral. DIGITAL ASSISTANT- Intact Psych- Anxious Skin- Dry, no peripheral [...] note for details. DAPHNE SHAHID MD Pager [phone] Jet Mckenna MD - 07/05/2017 6:48 PM EST Preliminary Cardiac Catheterization Procedure Note: Procedure(s) performed: Left heart cath, IABP insertion Access: Right SENIOR WIND ENERGY CONSULTANT-->8fr IABP A time-out was conducted prior [...] Shahid MD PCP: Lovely Vicente MD PCP#: [phone] Patient Active Problem List Diagnosis Code ??? [...] load with heparin drip and transferred to [facility]. While there, continued sob, question of chest pain. Stat TTE showing WMA diffusely and EF around 20%. No significant valvular disease. 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 [facility] Labs: INR 1.0 WBC 5.88 [...] Medicine, PGY-2 Cardiology S1, Team Pager # [phone] CARDIOLOGY ATTENDING NOTE Patient: Gregory Hoang Date [...] amenable for PCI. DAPHNE SHAHID MD Pager [phone] documented in this encounter Miscellaneous Notes Consult Note - Daphne Shahid MD - 07/14/2017 11:46 AM EST Heart Failure Service Inpatient Consult Note Gregory Hoang Date of : 1945 Age: 72 y.o. Today's date: 07/14/17 PCP: Lovely Vicente MD NUCLEAR POWERPLANT SUPERVISOR: None Place of Service: C451-A Reason for [...] following studies: EKG 07/14/17: NSR 75 bpm, MEDICAL BILLING ASSOCIATE anterior infarct, LAD CXR 07/11/17: FINDINGS: Sternotomy wires. The patient has been extubated, left chest tube removed, and Lamar-Suzi catheter removed since the 07/07/2017 study. Atelectasis [...] was discussed with Zehra. Jaden Kelley MD Fiberglass Boat Parts Finisher Pager [phone] CARDIOLOGY ATTENDING NOTE Patient: Gregory Hoang Date [...] heart failure clinic. DAPHNE SHAHID MD Pager [phone] Plan of Care - Alden Chavarria, PLANETARIUM SKY SHOW TECHNICIAN - 07/14/2017 11:35 AM EST Problem: [...] Discharge Disposition: home with assist Alden Chavarria, PLANETARIUM SKY SHOW TECHNICIAN Pager: [phone] Inpatient Physical Therapy Problem: Acute Rehab Services [...] sit/sit to supine -- Bed Mobility Goal, Temple Level supervision required -- Bed Mobility Goal, [...] - 3 days -- Gait Training Goal, Temple Level supervision required -- Gait Training Goal, [...] days -- Transfer Training Goal, Activity Type coq-pj-sypio/xyrei-ug-djo;yvr-di-sedkd/chyvl-rw-stv;toilet -- Transfer Train Goal, Temple Level supervision required -- Transfer Training Goal, [...] keeping present for 2 days per family. Founder And President noted of frustrations, house keeping sent to room. Patient offered showered twice, refused. at bedside, frustrated that shower not complete, informed that patient had refused several times. requesting to see DIGITAL SALES MANAGER, paged sent to Martha, will come to bedside (middle of consult). not willing to wait, Martha notified that family had gone home. Encouraged to come for morning rounds a t 8am. Diabetes team at bedside - insulin adjustments made. Call cabello in reach. Continue to monitor. PLAN MOVING FORWARD: Ambulate, dressing changes BID, Please change drsg at 4am per Martha DIGITAL SALES MANAGER request. INDIVIDUALIZED FALL PREVENTION INTERVENTIONS: Patient-specific [...] levels on the lower side, 60ml of Schriever juice given after a FS of 80. [...] monitoring required during toileting and ADLs]: RN EMBROIDERY FINISHER Surveillance [continuous indirect monitoring]: Barrett Monitor CPG [...] Anticipated Discharge Disposition: home with assist Pager: [phone] CLARISSA SEGAL, PT 07/12/2017 Physical Therapy Rehabilitation [...] to sit/sit to supine Bed Mobility Goal, Temple Level supervision required Bed Mobility Goal, Additional Goal adheres to psternal precautions for transfer Goal: Gait Training Goal Stand Alone Therapy Goal Outcome: Ongoing (Interventions Implemented as Appropriate) 07/12/17 1225 Gait Training Goal Gait Training Goal, Date Established 07/12/17 Gait Training Goal, Time to Achieve 2 - 3 days Gait Training Goal, Temple Level supervision required Gait Training Goal, Assist [...] 3 days Transfer Training Goal, Activity Type inh-nh-kcdqa/wzozx-ie-zmr;bwb-km-ngyju/icsaf-xz-rnm;toilet Transfer Train Goal, Temple Level supervision required Transfer Training Goal, Additional Goal adheres to sternal precautions during transfer Consult Note - Octavia Vaughn RN - 07/12/2017 10:50 AM EST [facility] CARDIAC REHABILITATION Gregory Hoang was seen today regarding participation in the outpatient Phase 2 Cardiac Rehabilitation at [facility]. The patient agrees to a [...] IV site, amio to other piv and FISHER TRAWL LINE at bedside to help assess, IV removed. [...] staff, he stood and marched in place. Converse weak, wanting to sit back down. Remained [...] Health/Prescription Coverage: Primary Insurance: MEDICARE Secondary Insurance: iTwin Prescription Coverage: yes Preferred Pharmacy: [facility] Other: none Primary Care Provider: Lovely Vicente MD [phone] Patient/Caregiver Goals of Treatment:live and get my breath back Potential Needs for Transition of Care: Rehab/SNF: [facility] Home Health: DME: TBD Dialysis: na Community Resources: available Transportation: yes Other: none Anticipated Barriers to Discharge/Special Considerations: none Plan: Likely SNF Rehab before home A member of the Care Management team will continue to monitor progress, follow for continuity of care and assist with transition of care planning. ERLIN Weiss Pager: [phone] Consult Note - Katerin Azul RN - [...] and to provide a review of intermediate diabetes care. Diabetes History: Gregory Hoang has [...] to d/c gtt and start CF. extermination inspector diabetes care: Medications - Outpatient treatment regimen recommendations pending based on the hospital course. Monitoring - continue BG tid ac & hs Diet - low fat/low carb diet Exercise - weight-bearing exercise 30 min/day, as tolerated Thank you for allowing us to provide care for your patient W/E coverage, Dr. Jeane Tatum, pager [phone] Katerin Azul APRN Endocrinology Diabetes Management Pager [phone] Plan of Care - Stephanie Godoy RN [...] Webber MD - 07/07/2017 6:27 PM EST [facility] Operative Note Patient Name: Gregory Hoang : [id number] MR#: [id number] Case Date: 07/07/2017 Surgeon: Surgeon(s) and Role: * Yuan Webber MD - Primary * Michael Drake PA - Physician Satellite Dish Installer * Linda Flores PA - Physician Satellite Dish Installer Preoperative diagnosis: 3VD Postoperative diagnosis: CAD, [...] Operative Note Patient Name: Gregory Hoang : [id number] MR#: [id number] Case Date: 07/07/2017 Surgeon: Surgeon(s) and Role: * Yuan Webber MD - Primary * Michael Drake PA - Physician Satellite Dish Installer * Linda Flores PA - Physician Satellite Dish Installer Preoperative diagnosis: 3VD Postoperative diagnosis: CAD, [...] Katty Hahn, MS3 [facility] Cardiology S1 (Pager [phone]) Plan of Care - Emelia Ibarra RN [...] Birthdate: 1945 Admit date: 07/05/2017 Attending Physician: Daphen Shahid MD I am seeing Gregory Hoang [...] at [facility] Social History: Social History [...] with other involved physicians Yuan Webber MD [phone] Med Student Progress Note - Katty Hahn [...] insulin drip - hold metformin - f/u [facility] ?? #Home Meds - continue levothyroxine 175mcg - CPAP at night ?? # Routine - DVT PPx: heparin drip - Diet: Healthy heart diet, NPO at midnight for CABG tomorrow - Code Status: FULL - Dispo: CVCC Katty Hahn, M3 [facility] Cardiology S1 (Pager [phone]) Plan of Care - Stephanie Godoy RN [...] Outcome: Ongoing (Interventions Implemented as Appropriate) 07/06/17 2086 Cardiac: ACS (Acute Coronary Syndrome) Problems Assessed [...] MD [facility] [address] [place] [address] (Wo rk) 05/28/2022 Laboratory Appointment Lab 05/28/2022 Office Visit Cardiology Zulma Dolan [place] [address] Liz Poole PA [facility] [place] [address] 06/10/2022 Office Visit Dermatology Laura Scherer MD [facility] [address] [place], [place] [address] (Wo rk) Scheduled Orders Name [...] procedure are i n the results section. MAGENTO DEVELOPER SCAN 07/15/2017 12:00 Res ults for [...] Routine 07/08/2017 4:00 Results f or this ([facility]) AM EST procedure are i n the [...] Routine 07/06/2017 7:40 Results f or this ([facility]) PM EST procedure are i n the [...] Timed 07/06/2017 2:10 Results f or this ([facility]) PM EST procedure are i n the [...] section. TYPE AND SCREEN Routine 07/06/2017 12:00 ([facility]) PM EST APTT STAT 07/06/2017 11:24 Results [...] Routine 07/06/2017 8:10 Results f or this ([facility]) AM EST procedure are i n the [...] Routine 07/06/2017 2:20 Results f or this ([facility]) AM EST procedure are i n the [...] Routine 07/05/2017 8:20 Results f or this ([facility]) PM EST procedure are i n the [...] Timed 07/05/2017 4:55 Results f or this ([facility] [place] [place] PM EST procedure are i n the [...] 2017 EXAMINATION: XR CHEST PA AND LATERAL ([employer]) CLINICAL HISTORY: CABG x 3 TECHNIQUE: PA [...] Teague APRN IMG DX ORDERABLES SCAN DOC: MAGENTO DEVELOPER (07/15/2017 12:00 AM EST) Narrative 07/15/2017 [...] 186 65 - 199 [place] mg/dL [facility] Comment: Supplemental ranges: <140 mg/dL before meals <180 mg/dL all other times of the day Specimen Anatomical Collection Method Collection Time Receive d Time (Source) Location / / Volume Laterality Blood specimen 07/14/2017 11:56 7 (specimen) AM EST 11:56 AM EST Yuan Webber MD POINT OF CARE TEST ORDERABLE S Performing Organization Address City/State/ZIP Code Phon e Number [place] [id number] [facility] [address] POCT Glucose (07/14/2017 7:52 AM EST) athologist Signature POC Glucose 126 65 - 199 [facility] mg/dL [facility] Comment: Supplemental ranges: <140 mg/dL before meals <180 mg/dL all other times of the day Specimen Anatomical Collection Method Collection Time Receive d Time (Source) Location / / Volume Laterality Blood specimen 07/14/2017 7:52 AM 017 7:52 (specimen) EST AM EST Yuan Webber MD POINT OF CARE TEST ORDERABLE S Performing Organization Address City/State/ZIP Code Phon e Number [address] (ABNORMAL) Prothrombin Time (07/14/2017 [...] Address City/State/ZIP Code Phon e Number [address] Potassium (07/14/2017 4:46 AM EST) athologist Signature Potassium 4.3 3.5 - 5.0 [facility] mmol/L [facility] Comment: Please note: [...] Address City/State/ZIP Code Phon e Number [address] POCT Glucose (07/14/2017 4:34 AM EST) athologist Signature POC Glucose 115 65 - 199 [facility] mg/dL [facility] Comment: Supplemental ranges: [...] [facility]/ZIP Code Phon e Number [address] POCT Glucose (07/13/2017 11:33 PM EST) athologist Signature POC Glucose 132 65 - 199 [place] mg/dL [facility] Comment: Supplemental ranges: [...] [facility]/ZIP Code Phon e Number [address] POCT Glucose (07/13/2017 9:25 PM EST) athologist Signature POC Glucose 121 65 - 199 [place] mg/dL [facility] Comment: Supplemental ranges: <140 mg/dL before meals <180 mg/dL all other times of the day Specimen Anatomical Collection Method Collection Time Receive d Time (Source) Location / / Volume Laterality Blood specimen 07/13/2017 9:25 PM 017 9:25 (specimen) EST PM EST Yuan Webber MD POINT OF CARE TEST ORDERABLE S Performing Organization Address City/State/ZIP Code Phon e Number [address] POCT Glucose (07/13/2017 4:55 PM EST) P athologist Signature POC Glucose 79 65 - 199 [facility] mg/dL [facility] Comment: Supplemental ranges: <140 mg/dL before meals <180 mg/dL all other times of the day Specimen Anatomical Collection Method Collection Time Receive d Time (Source) Location / / Volume Laterality Blood specimen 07/13/2017 4:55 PM 017 4:55 (specimen) EST PM EST Yuan Webber MD POINT OF CARE TEST ORDERABLE S Performing Organization Address City/State/ZIP Code Phon e Number [address] POCT Glucose (07/13/2017 11:16 AM EST) P athologist Signature POC Glucose 163 65 - 199 [place] mg/dL [facility] Comment: Supplemental ranges: <140 mg/dL before meals <180 mg/dL all other times of the day Specimen Anatomical Collection Method Collection Time Receive d Time (Source) Location / / Volume Laterality Blood specimen 07/13/2017 11:16 7 (specimen) AM EST 11:16 AM EST Yuan Webber MD POINT OF CARE TEST ORDERABLE S Performing Organization Address City/State/ZIP Code Phon e Number [address] POCT Glucose (07/13/2017 8:07 AM EST) P athologist Signature POC Glucose 96 65 - 199 [place] mg/dL [facility]/[place] [address] (ABNORMAL) Prothrombin Time (07/13/2017 [...] APRN HEMATOLOGY ORDERABLES Performing Organization Address City/[facility]/[place] [address] (ABNORMAL) Basic Metabolic Panel (non-fasting) (07/13/2017 4:26 AM EST) P athologist Signature Glucose Lvl 95 65 - 199 [facility] mg/dL [facility] Comment: Diabetes: >=200 [...] [facility] Estimated GFR 60 >=60 [facility] Comment: The reported eGFR should be multiplied b y 1.2 for patients. The MDRD is not an appropriate measure o f renal function for patients with body mass extremes or in patients with acute kidney failure. [email or web address] [email or web address] Specimen Anatomical Collection Method Collection Time Receive d Time (Source) Location / / Volume Laterality Blood specimen 07/13/2017 4:26 AM 017 4:46 (specimen) EST AM EST Resulting Agency Comment Spec In Lab Makayla Wilson APRN CHEMISTRY ORDERABLES Performing Organization Address City/[facility]/ZIP Code Phon e Number [address] POCT Glucose (07/13/2017 3:52 AM EST) P athologist Signature POC Glucose 93 65 - 199 [facility] mg/dL [facility] Comment: Supplemental ranges: <140 mg/dL before meals <180 mg/dL all other times of the day Specimen Anatomical Collection Method Collection Time Receive d Time (Source) Location / / Volume Laterality Blood specimen 07/13/2017 3:52 AM 017 3:52 (specimen) EST AM EST Yuan Webber MD POINT OF CARE TEST ORDERABLE S Performing Organization Address City/State/[place] [address] POCT Glucose (07/13/2017 12:21 AM EST) athologist Signature POC Glucose 80 65 - 199 [place] mg/dL [facility] Comment: Supplemental ranges: <140 mg/dL before meals <180 mg/dL all other times of the day Specimen Anatomical Collection Method Collection Time Receive d Time (Source) Location / / Volume Laterality Blood specimen 07/13/2017 12:21 7 (specimen) AM EST 12:21 AM EST Yuan Webber MD POINT OF CARE TEST ORDERABLE S Performing Organization Address City/State/ZIP Code Phon e Number [address] POCT Glucose (07/12/2017 8:22 PM EST) athologist Signature POC Glucose 119 65 - 199 [facility] mg/dL [facility] Comment: Supplemental ranges: <140 mg/dL before meals <180 mg/dL all other times of the day Specimen Anatomical Collection Method Collection Time Receive d Time (Source) Location / / Volume Laterality Blood specimen 07/12/2017 8:22 PM 017 8:22 (specimen) EST PM EST Yuan Webber MD POINT OF CARE TEST ORDERABLE S Performing Organization Address City/State/ZIP Code Phon e Number [address] POCT Glucose (07/12/2017 4:02 PM EST) athologist Signature POC Glucose 114 65 - 199 [facility] mg/dL [facility] Comment: Supplemental ranges: <140 mg/dL before meals <180 mg/dL all other times of the day Specimen Anatomical Collection Method Collection Time Receive d Time (Source) Location / / Volume Laterality Blood specimen 07/12/2017 4:02 PM 017 4:02 (specimen) EST PM EST Yuan Webber MD POINT OF CARE TEST ORDERABLE S Performing Organization Address City/State/[place] [address] POCT Glucose (07/12/2017 11:28 AM EST) athologist Signature POC Glucose 164 65 - 199 [facility] mg/dL [facility] Comment: Supplemental ranges: <140 mg/dL before meals <180 mg/dL all other times of the day Specimen Anatomical Collection Method Collection Time Receive d Time (Source) Location / / Volume Laterality Blood specimen 07/12/2017 11:28 7 (specimen) AM EST 11:28 AM EST Yuan Webber MD POINT OF CARE TEST ORDERABLE S Performing Organization Address City/State/ZIP Code Phon e Number [address] POCT Glucose (07/12/2017 7:34 AM EST) athologist Signature POC Glucose 109 65 - 199 [facility] mg/dL [facility] Comment: Supplemental ranges: <140 mg/dL before meals <180 mg/dL all other times of the day Specimen Anatomical Collection Method Collection Time Receive d Time (Source) Location / / Volume Laterality Blood specimen 07/12/2017 7:34 AM 017 7:34 (specimen) EST AM EST Yuan Webber MD POINT OF CARE TEST ORDERABLE S Performing Organization Address City/State/[place] [address] (ABNORMAL) Basic Metabolic Panel (non-fasting) (07/12/2017 4:11 AM EST) athologist Signature Glucose Lvl 92 65 - 199 [facility] Comment: Diabetes: >=200 [...] or in patients with acute kidney failure. [email or web address] [email or web address] Specimen Anatomical Collection Method Collection Time Receive d Time (Source) Location / / Volume Laterality Blood specimen 07/12/2017 4:11 AM 017 8:57 (specimen) EST AM EST Resulting Agency Comment Spec In Lab Makayla Katie QUINONES CHEMISTRY ORDERABLES Performing Organization Address City/State/[place] [address] (ABNORMAL) Prothrombin Time (07/12/2017 [...] APRN HEMATOLOGY ORDERABLES Performing Organization Address City/[facility]/[place] [address] Potassium (07/12/2017 4:11 AM EST) athologist Signature Potassium 3.8 3.5 - 5.0 [facility] mmol/L [facility] Comment: Please note: [...] APRN CHEMISTRY ORDERABLES Performing Organization Address City/[facility]/[place] [address] POCT Glucose (07/12/2017 4:10 AM EST) athologist Signature POC Glucose 90 65 - 199 [facility]/dL [facility] Comment: Supplemental [...] [facility]/[place] [address] POCT Glucose (07/11/2017 11:57 PM EST) athologist Signature POC Glucose 98 65 - 199 [facility] mg/dL [facility] Comment: Supplemental ranges: <140 mg/dL before meals <180 mg/dL all other times of the day Specimen Anatomical Collection Method Collection Time Receive d Time (Source) Location / / Volume Laterality Blood specimen 07/11/2017 11:57 7 (specimen) PM EST 11:57 PM EST Yuan Webber MD POINT OF CARE TEST ORDERABLE S Performing Organization Address City/State/[place] [address] POCT Glucose (07/11/2017 8:32 PM EST) P athologist Signature POC Glucose 146 65 - 199 [facility] mg/dL [facility] Comment: Supplemental ranges: <140 mg/dL before meals <180 mg/dL all other times of the day Specimen Anatomical Collection Method Collection Time Receive d Time (Source) Location / / Volume Laterality Blood specimen 07/11/2017 8:32 PM 017 8:32 (specimen) EST PM EST Yuan Webber MD POINT OF CARE TEST ORDERABLE S Performing Organization Address City/State/[place] [address] XR Chest PA & [...] e xtubated, left chest tube removed, and Lamar-Suzi catheter removed since the study. Atelectasis at [...] e xtubated, left chest tube removed, and Lamar-Suzi catheter removed since the study. Atelectasis at [...] POC Glucose 223 (H) 65 - 199 [facility] mg/dL [facility] Comment: Supplemental ranges: [...] [facility]/[place] [address] POCT Glucose (07/11/2017 11:55 AM EST) athologist Signature POC Glucose 176 65 - 199 [place] mg/dL [facility] Comment: Supplemental ranges: <140 mg/dL before meals <180 mg/dL all other times of the day Specimen Anatomical Collection Method Collection Time Receive d Time (Source) Location / / Volume Laterality Blood specimen 07/11/2017 11:55 7 (specimen) AM EST 11:55 AM EST Yuan Webber MD POINT OF CARE TEST ORDERABLE S Performing Organization Address City/State/[place] [address] POCT Glucose (07/11/2017 7:53 AM EST) athologist Signature POC Glucose 189 65 - 199 [facility] mg/dL [facility] Comment: Supplemental ranges: <140 mg/dL before meals <180 mg/dL all other times of the day Specimen Anatomical Collection Method Collection Time Receive d Time (Source) Location / / Volume Laterality Blood specimen 07/11/2017 7:53 AM 017 7:53 (specimen) EST AM EST Yuan Webber MD POINT OF CARE TEST ORDERABLE S Performing Organization Address City/[facility]/ZIP [facility] Phon e Number [address] POCT Glucose (07/11/2017 4:22 AM EST) athologist Signature POC Glucose 151 65 - 199 [facility] mg/dL [facility] Comment: Supplemental ranges: <140 mg/dL before meals <180 mg/dL all other times of the day Specimen Anatomical Collection Method Collection Time Receive d Time (Source) Location / / Volume Laterality Blood specimen 07/11/2017 4:22 AM 017 4:22 (specimen) EST AM EST Yuan Webber MD POINT OF CARE TEST ORDERABLE S Performing Organization Address City/[facility] Phon e Number [address] Potassium (07/11/2017 2:20 AM EST) athologist Signature Potassium 4.5 3.5 - 5.0 [facility] mmol/L [facility] Comment: Please note: [...] Address City/State/ZIP Code Phon e Number [address] POCT Glucose (07/11/2017 12:17 AM EST) athologist Signature POC Glucose 162 65 - 199 [place] mg/dL [facility] Comment: Supplemental ranges: [...] [facility]/ZIP Code Phon e Number [address] POCT Glucose (07/10/2017 8:47 PM EST) athologist Signature POC Glucose 191 65 - 199 [place] mg/dL [facility] Comment: Supplemental ranges: [...] [facility]/ZIP Code Phon e Number [place] [address] POCT Glucose (07/10/2017 4:06 PM EST) athologist Signature POC Glucose 131 65 - 199 [place] mg/dL [facility] Comment: Supplemental ranges: <140 mg/dL before meals <180 mg/dL all other times of the day Specimen Anatomical Collection Method Collection Time Receive d Time (Source) Location / / Volume Laterality Blood specimen 07/10/2017 4:06 PM 017 4:06 (specimen) EST PM EST Yuan Webber MD POINT OF CARE TEST ORDERABLE S Performing Organization Address City/State/[place] [address] POCT Glucose (07/10/2017 3:08 PM EST) athologist Signature POC Glucose 151 65 - 199 [place] mg/dL [facility] Comment: Supplemental ranges: <140 mg/dL before meals <180 mg/dL all other times of the day Specimen Anatomical Collection Method Collection Time Receive d Time (Source) Location / / Volume Laterality Blood specimen 07/10/2017 3:08 PM 017 3:08 (specimen) EST PM EST Yuan Webber MD POINT OF CARE TEST ORDERABLE S Performing Organization Address City/State/ZIP Code Phon e Number [address] POCT Glucose (07/10/2017 2:25 PM EST) athologist Signature POC Glucose 146 65 - 199 [facility] mg/dL [facility] Comment: Supplemental ranges: <140 mg/dL before meals <180 mg/dL all other times of the day Specimen Anatomical Collection Method Collection Time Receive d Time (Source) Location / / Volume Laterality Blood specimen 07/10/2017 2:25 PM 017 2:25 (specimen) EST PM EST Yuan Webber MD POINT OF CARE TEST ORDERABLE S Performing Organization Address City/State/ZIP Code Phon e Number [address] POCT Glucose (07/10/2017 1:23 PM EST) athologist Signature POC Glucose 166 65 - 199 [place] mg/dL [facility] Comment: Supplemental ranges: <140 mg/dL before meals <180 mg/dL all other times of the day Specimen Anatomical Collection Method Collection Time Receive d Time (Source) Location / / Volume Laterality Blood specimen 07/10/2017 1:23 PM 017 1:23 (specimen) EST PM EST Yuan Webber MD POINT OF CARE TEST ORDERABLE S Performing Organization Address City/State/[place] [address] POCT Glucose (07/10/2017 11:52 AM EST) P athologist Signature POC Glucose 157 65 - 199 [place] mg/dL [facility] Comment: Supplemental ranges: <140 mg/dL before meals <180 mg/dL all other times of the day Specimen Anatomical Collection Method Collection Time Receive d Time (Source) Location / / Volume Laterality Blood specimen 07/10/2017 11:52 7 (specimen) AM EST 11:52 AM EST Yuan Webber MD POINT OF CARE TEST ORDERABLE S Performing Organization Address City/State/ZIP Code Phon e Number [address] POCT Glucose (07/10/2017 11:01 AM EST) athologist Signature POC Glucose 158 65 - 199 [facility] mg/dL [facility] Comment: Supplemental ranges: <140 mg/dL before meals <180 mg/dL all other times of the day Specimen Anatomical Collection Method Collection Time Receive d Time (Source) Location / / Volume Laterality Blood specimen 07/10/2017 11:01 7 (specimen) AM EST 11:01 AM EST Yuan Webber MD POINT OF CARE TEST ORDERABLE S Performing Organization Address City/State/ZIP Code Phon e Number [address] POCT Glucose (07/10/2017 9:54 AM EST) athologist Signature POC Glucose 160 65 - 199 [place] mg/dL [facility] Comment: Supplemental ranges: <140 mg/dL before meals <180 mg/dL all other times of the day Specimen Anatomical Collection Method Collection Time Receive d Time (Source) Location / / Volume Laterality Blood specimen 07/10/2017 9:54 AM 017 9:54 (specimen) EST AM EST Yuan Webber MD POINT OF CARE TEST ORDERABLE S Performing Organization Address City/State/[place] [address] POCT Glucose (07/10/2017 8:58 AM EST) athologist Signature POC Glucose 183 65 - 199 [place] mg/dL [facility] Comment: Supplemental ranges: <140 mg/dL before meals <180 mg/dL all other times of the day Specimen Anatomical Collection Method Collection Time Receive d Time (Source) Location / / Volume Laterality Blood specimen 07/10/2017 8:58 AM 017 8:58 (specimen) EST AM EST Yuan Webber MD POINT OF CARE TEST ORDERABLE S Performing Organization Address City/State/[place] [address] POCT Glucose (07/10/2017 8:01 AM EST) athologist Signature POC Glucose 173 65 - 199 [place] mg/dL [facility] Comment: Supplemental ranges: <140 mg/dL before meals <180 mg/dL all other times of the day Specimen Anatomical Collection Method Collection Time Receive d Time (Source) Location / / Volume Laterality Blood specimen 07/10/2017 8:01 AM 017 8:01 (specimen) EST AM EST Yuan Wbeber MD POINT OF CARE TEST ORDERABLE S Performing Organization Address City/State/ZIP Code Phon e Number [address] POCT Glucose (07/10/2017 7:05 AM EST) athologist Signature POC Glucose 166 65 - 199 [place] mg/dL [facility] Comment: Supplemental ranges: <140 mg/dL before meals <180 mg/dL all other times of the day Specimen Anatomical Collection Method Collection Time Receive d Time (Source) Location / / Volume Laterality Blood specimen 07/10/2017 7:05 AM 017 7:05 (specimen) EST AM EST Yuan Webber MD POINT OF CARE TEST ORDERABLE S Performing Organization Address City/State/ZIP Code Phon e Number [address] POCT Glucose (07/10/2017 6:00 AM EST) P athologist Signature POC Glucose 162 65 - 199 [facility] mg/dL [facility] Comment: Supplemental ranges: <140 mg/dL before meals <180 mg/dL all other times of the day Specimen Anatomical Collection Method Collection Time Receive d Time (Source) Location / / Volume Laterality Blood specimen 07/10/2017 6:00 AM 017 6:00 (specimen) EST AM EST Yuan Webber MD POINT OF CARE TEST ORDERABLE S Performing Organization Address City/State/[place] [address] (ABNORMAL) Differential, Automated (07/10/2017 4:28 AM EST) Patholo gist Method Time Signature Neutrophils % 87.9 % [facility] Neutr Abs (ANC) 10.70 (H) 1.70 - [facility] 6.10 [facility] x10(3)/[facility] L LABORATORY Lymphocytes % 3.9 % [facility] Lymphocytes Abs 0.5 (L) 0.9 - 3.2 [facility] x10(3)/[facility] LABORATORY Monocytes % 7.0 % [facility] Monocyte Abs 0.8 0.3 - 0.9 [facility] x10(3)/[facility] LABORATORY Eosinophils % 0.3 % [facility] Eosinophils Abs 0.0 0.0 - 0.4 [facility] x10(3)/[facility] LABORATORY Basophils % 0.2 % [facility] Basophils Abs 0.0 0.0 - 0.1 [facility] x10(3)/[facility] LABORATORY Immature Gran % 0.70 % [...] Organization Address City/State/[place] [address] (ABNORMAL) Hemogram (07/10/2017 4:28 AM EST) Analysis Performed At Patho logist Time Signature WBC 12.2 (H) 4.0 - 9.5 [facility] x10(3)/[facility] LABORATORY RBC 3.31 (L) 4.58 [facility] 5[facility]54 [facility] x10(6)/[facility] LABORATORY Hemoglobin 9.8 (L) 13.7 - [facility] 16.5 gm/dL [facility] Hematocrit 30.0 (L) 40.5 - [facility] 48.5 % [facility] MCV 90.6 82.9 - [facility] 93.1 [facility] LABORATORY MCH 29.6 27.5 - [facility] 32.1 pg [facility] MCHC 32.7 32.0 - [facility] 35.7 gm/dL [facility] Platelets 135 (L) 145 - 357 [facility] x10(3)/[facility] LABORATORY RDWSD 50.8 (H) 36.0 - [facility] 45.0 [facility] LABORATORY RDWCV 15.4 (H) 11.4 - [facility] 13.8 % [facility] MPV 10.0 7.6 - 12.9 [facility] LABORATORY nRBC % Auto 0.0 % [facility] nRBC Abs Auto 0.000 0.000 - [facility] 0.000 [facility] x10(3)/[facility] LABORATORY Specimen Anatomical Collection Method Collection Time Receive d Time (Source) Location / / Volume Laterality Blood specimen 07/10/2017 4:28 AM 017 4:36 (specimen) EST AM EST Resulting Agency Comment Spec In Lab Yuan Webber MD HEMATOLOGY ORDERABLES Performing Organization Address City/[facility]/[place] [address] (ABNORMAL) Basic Metabolic Panel (non-fasting) (07/10/2017 4:28 AM EST) P athologist Signature Glucose Lvl 178 65 - 199 [facility] mg/dL [facility] Comment: Diabetes: >=200 [...] [facility] Estimated GFR 60 >=60 [facility] [facility] Comment: The reported eGFR should be multiplied b y 1.2 for patients. The MDRD is not an appropriate measure o f renal function for patients with body mass extremes or in patients with acute kidney failure. http://[employer]/DHnkdep http://[employer]/DHMCnkf Specimen Anatomical Collection Method Collection Time Receive d Time (Source) Location / / Volume Laterality Blood specimen 07/10/2017 4:28 AM 017 4:36 (specimen) EST AM EST Resulting Agency Comment Spec In Lab Yuan Webber MD CHEMISTRY ORDERABLES Performing Organization Address City/[facility]/[place] [address] POCT Glucose (07/10/2017 4:26 AM EST) P athologist Signature POC Glucose 176 65 - 199 [facility] mg/dL [facility] Comment: Supplemental ranges: <140 mg/dL before meals <180 mg/dL all other times of the day Specimen Anatomical Collection Method Collection Time Receive d Time (Source) Location / / Volume Laterality Blood specimen 07/10/2017 4:26 AM 017 4:26 (specimen) EST AM EST Yuan Webber MD POINT OF CARE TEST ORDERABLE S Performing Organization Address City/State/[place] [address] (ABNORMAL) POCT Glucose (07/10/2017 3:06 AM EST) athologist Signature POC Glucose 204 (H) 65 - 199 [facility] mg/dL [facility] Comment: Supplemental ranges: <140 mg/dL before meals <180 mg/dL all other times of the day Specimen Anatomical Collection Method Collection Time Receive d Time (Source) Location / / Volume Laterality Blood specimen 07/10/2017 3:06 AM 017 3:06 (specimen) EST AM EST Yuan Webber MD POINT OF CARE TEST ORDERABLE S Performing Organization Address City/State/[place] [address] (ABNORMAL) POCT Glucose (07/10/2017 2:10 AM EST) athologist Signature POC Glucose 203 (H) 65 - 199 [facility] mg/dL [facility] Comment: Supplemental ranges: <140 mg/dL before meals <180 mg/dL all other times of the day Specimen Anatomical Collection Method Collection Time Receive d Time (Source) Location / / Volume Laterality Blood specimen 07/10/2017 2:10 AM 017 2:10 (specimen) EST AM EST Yuan Webber MD POINT OF CARE TEST ORDERABLE S Performing Organization Address City/State/ZIP Code Phon e Number [address] POCT Glucose (07/10/2017 1:09 AM EST) P athologist Signature POC Glucose 196 65 - 199 [place] mg/dL [facility] Comment: Supplemental ranges: <140 mg/dL before meals <180 mg/dL all other times of the day Specimen Anatomical Collection Method Collection Time Receive d Time (Source) Location / / Volume Laterality Blood specimen 07/10/2017 1:09 AM 017 1:09 (specimen) EST AM EST Yuan Webber MD POINT OF CARE TEST ORDERABLE S Performing Organization Address City/State/ZIP Code Phon e Number [address] POCT Glucose (07/10/2017 12:10 AM EST) athologist Signature POC Glucose 173 65 - 199 [place] mg/dL [facility] Comment: Supplemental ranges: <140 mg/dL before meals <180 mg/dL all other times of the day Specimen Anatomical Collection Method Collection Time Receive d Time (Source) Location / / Volume Laterality Blood specimen 07/10/2017 12:10 7 (specimen) AM EST 12:10 AM EST Yuan Webber MD POINT OF CARE TEST ORDERABLE S Performing Organization Address City/State/ZIP Code Phon e Number [address] POCT Glucose (07/09/2017 11:01 PM EST) athologist Signature POC Glucose 140 65 - 199 [place] mg/dL [facility] Comment: Supplemental ranges: <140 mg/dL before meals <180 mg/dL all other times of the day Specimen Anatomical Collection Method Collection Time Receive d Time (Source) Location / / Volume Laterality Blood specimen 07/09/2017 11:01 7 (specimen) PM EST 11:01 PM EST Yuan Webber MD POINT OF CARE TEST ORDERABLE S Performing Organization Address City/State/[place] [address] POCT Glucose (07/09/2017 10:05 PM EST) athologist Signature POC Glucose 144 65 - 199 [place] mg/dL [facility] [...] Address City/State/ZIP Code Phon e Number [address] POCT Glucose (07/09/2017 9:31 PM EST) athologist Signature POC Glucose 121 65 - 199 [place] mg/dL [facility] Comment: Supplemental ranges: <140 mg/dL before meals <180 mg/dL all other times of the day Specimen Anatomical Collection Method Collection Time Receive d Time (Source) Location / / Volume Laterality Blood specimen 07/09/2017 9:31 PM 017 9:31 (specimen) EST PM EST Yuan Webber MD POINT OF CARE TEST ORDERABLE S Performing Organization Address City/State/ZIP Code Phon e Number [address] POCT Glucose (07/09/2017 9:03 PM EST) athologist Signature POC Glucose 98 65 - 199 [place] mg/dL [facility] Comment: Supplemental ranges: <140 mg/dL before meals <180 mg/dL all other times of the day Specimen Anatomical Collection Method Collection Time Receive d Time (Source) Location / / Volume Laterality Blood specimen 07/09/2017 9:03 PM 017 9:03 (specimen) EST PM EST Yuan Webber MD POINT OF CARE TEST ORDERABLE S Performing Organization Address City/State/ZIP Code Phon e Number [address] POCT Glucose (07/09/2017 8:09 PM EST) athologist Signature POC Glucose 117 65 - 199 [place] mg/dL [facility] Comment: Supplemental ranges: <140 mg/dL before meals <180 mg/dL all other times of the day Specimen Anatomical Collection Method Collection Time Receive d Time (Source) Location / / Volume Laterality Blood specimen 07/09/2017 8:09 PM 017 8:09 (specimen) EST PM EST Yuan Webber MD POINT OF CARE TEST ORDERABLE S Performing Organization Address City/State/[place] [address] POCT Glucose (07/09/2017 5:40 PM EST) athologist Signature POC Glucose 155 65 - 199 [place] mg/dL [facility] [...] Organization Address City/State/[place] [address] POCT Glucose (07/09/2017 4:24 PM EST) athologist Signature POC Glucose 164 65 - 199 [place] mg/dL [facility] Comment: Supplemental ranges: <140 mg/dL before meals <180 mg/dL all other times of the day Specimen Anatomical Collection Method Collection Time Receive d Time (Source) Location / / Volume Laterality Blood specimen 07/09/2017 4:24 PM 017 4:24 (specimen) EST PM EST Yuan Webber MD POINT OF CARE TEST ORDERABLE S Performing Organization Address City/State/ZIP Code Phon e Number [address] POCT Glucose (07/09/2017 3:19 PM EST) athologist Signature POC Glucose 166 65 - 199 [place] mg/dL [facility] [...] Organization Address City/State/[place] [address] POCT Glucose (07/09/2017 2:26 PM EST) athologist Signature POC Glucose 179 65 - 199 [facility] mg/dL [facility] Comment: Supplemental ranges: <140 mg/dL before meals <180 mg/dL all other times of the day Specimen Anatomical Collection Method Collection Time Receive d Time (Source) Location / / Volume Laterality Blood specimen 07/09/2017 2:26 PM 017 2:26 (specimen) EST PM EST Yuan Webber MD POINT OF CARE TEST ORDERABLE S Performing Organization Address City/State/[place] [address] (ABNORMAL) POCT Glucose (07/09/2017 [...] Organization Address City/State/[place] [address] POCT Glucose (07/09/2017 12:20 PM EST) athologist Signature POC Glucose 172 65 - 199 [place] mg/dL [facility] Comment: Supplemental ranges: <140 mg/dL before meals <180 mg/dL all other times of the day Specimen Anatomical Collection Method Collection Time Receive d Time (Source) Location / / Volume Laterality Blood specimen 07/09/2017 12:20 7 (specimen) PM EST 12:20 PM EST Yuan Webber MD POINT OF CARE TEST ORDERABLE S Performing Organization Address City/State/ZIP Code Phon e Number [address] POCT Glucose (07/09/2017 11:24 AM EST) athologist Signature POC Glucose 156 65 - 199 [facility] mg/dL [facility] Comment: Supplemental ranges: <140 mg/dL before meals <180 mg/dL all other times of the day Specimen Anatomical Collection Method Collection Time Receive d Time (Source) Location / / Volume Laterality Blood specimen 07/09/2017 11:24 7 (specimen) AM EST 11:24 AM EST Yuan Webber MD POINT OF CARE TEST ORDERABLE S Performing Organization Address City/State/ZIP Code Phon e Number [address] POCT Glucose (07/09/2017 11:11 AM EST) athologist Signature POC Glucose 172 65 - 199 [place] mg/dL [facility] Comment: Supplemental ranges: <140 mg/dL before meals <180 mg/dL all other times of the day Specimen Anatomical Collection Method Collection Time Receive d Time (Source) Location / / Volume Laterality Blood specimen 07/09/2017 11:11 7 (specimen) AM EST 11:11 AM EST Yuan Webber MD POINT OF CARE TEST ORDERABLE S Performing Organization Address City/State/ZIP Code Phon e Number [address] POCT Glucose (07/09/2017 10:08 AM EST) athologist Signature POC Glucose 176 65 - 199 [place] mg/dL [facility] Comment: Supplemental ranges: <140 mg/dL before meals <180 mg/dL all other times of the day Specimen Anatomical Collection Method Collection Time Receive d Time (Source) Location / / Volume Laterality Blood specimen 07/09/2017 10:08 7 (specimen) AM EST 10:08 AM EST Yuan Webber MD POINT OF CARE TEST ORDERABLE S Performing Organization Address City/State/[place] [address] POCT Glucose (07/09/2017 8:02 AM EST) P athologist Signature POC Glucose 178 65 - [address] [facility] mg/dL [facility] Comment: Supplemental ranges: <140 mg/dL before meals <180 mg/dL all other times of the day Specimen Anatomical Collection Method Collection Time Receive d Time (Source) Location / / Volume Laterality Blood specimen 07/09/2017 8:02 AM 017 8:02 (specimen) EST AM EST Yuan Webber MD POINT OF CARE TEST ORDERABLE S Performing Organization Address City/State/[place] [address] (ABNORMAL) BLOOD GAS 2 ARTERIAL (07/09/2017 5:37 AM EST) Analysis Performed At Patho logist Time Signature pH Art 7.36 7.35 - [facility] 7.45 [facility] pCO2 Art 38 35 - 45 [facility] mmHg [facility] pO2 Art 79 (L) 85 - 104 [facility] mmHg [facility] HCO3 Art 20.9 20.0 - [facility] 26.0 [facility] mmol/L [facility] BE Art -4.6 (L) -3.0 - 3.0 [facility] mmol/L [facility] Hgb Blood Gas 10.5 (L) 13.7 - [facility] 16.5 gm/dL [facility] O2HB Art 93.8 (L) 94.0 - [facility] 97.0 % [facility] COHB Art 0.3 % [place] [facility] PF Ratio Art 198 [facility] Specimen Anatomical Collection Method Collection Time Receive d Time (Source) Location / / Volume Laterality Blood specimen 07/09/2017 5:37 AM 017 5:37 (specimen) EST AM EST Yuan Webber MD CHEMISTRY ORDERABLES Performing Organization Address City/State/[place] [address] POCT Glucose (07/09/2017 3:27 AM EST) P athologist Signature POC Glucose 192 65 - [address] [facility] mg/dL [facility] Comment: Supplemental ranges: <140 mg/dL before meals <180 mg/dL all other times of the day Specimen Anatomical Collection Method Collection Time Receive d Time (Source) Location / / Volume Laterality Blood specimen 07/09/2017 3:27 AM 017 3:27 (specimen) EST AM EST Yuan Webber MD POINT OF CARE TEST ORDERABLE S Performing Organization Address City/State/[place] [address] (ABNORMAL) Basic Metabolic Panel (non-fasting) (07/09/2017 2:30 AM EST) P athologist Signature Glucose Lvl 179 65 - [address] [facility] mg/dL [facility] Comment: Diabetes: >=200 [...] or in patients with acute kidney failure. http://[employer]/DHnkdep http://[employer]/DHMCnkf Specimen Anatomical Collection Method Collection Time Receive d Time (Source) Location / / Volume Laterality Blood specimen Venous Draw / 07/09/2017 2:30 AM 2016 2:42 (specimen) Unknown EST AM EST Resulting Agency Comment Spec In Lab Yuan Webber MD CHEMISTRY ORDERABLES Performing Organization Address City/State/[place] [address] (ABNORMAL) Potassium (07/09/2017 2:30 AM EST) P athologist Signature Potassium 5.1 (H) 3.5 - 5.0 [place] mmol/L [facility] Comment: Please note: [...] [facility]/[place] [address] (ABNORMAL) Hemogram (07/09/2017 2:30 AM EST) Analysis Performed At Patho logist Time Signature WBC 12.5 (H) 4.0 - 9.5 [place] x10(3)/[facility] LABORATORY RBC 3.38 (L) 4.58 - [place] 5.54 [facility] x10(6)/[facility] LABORATORY Hemoglobin 10.1 (L) 13.7 - [place] 16.5 gm/dL [facility] Hematocrit 30.3 (L) 40.5 - [place] 48.5 % [facility] MCV 89.6 82.9 - [place] 93.1 [facility] LABORATORY MCH 29.9 27.5 - [place] 32.1 pg [facility] MCHC 33.3 32.0 - [place] 35.7 gm/dL [facility] Platelets 127 (L) 145 - 357 [place] x10(3)/[facility] LABORATORY RDWSD 49.3 (H) 36.0 - [place] 45.0 [facility] LABORATORY RDWCV 15.2 (H) 11.4 - [place] 13.8 % [facility] MPV 9.9 7.6 - 12.9 [facility] LABORATORY nRBC % Auto 0.0 % [facility] nRBC Abs Auto 0.000 0.000 - [place] 0.000 [facility] x10(3)/[facility] LABORATORY Specimen Anatomical Collection Method Collection Time Receive d Time (Source) Location / / Volume Laterality Blood specimen 07/09/2017 2:30 AM 017 2:41 (specimen) EST AM EST Resulting Agency Comment Spec In Lab Yuan Webber MD HEMATOLOGY ORDERABLES Performing Organization Address City/State/ZIP Code Phon e Number [address] POCT Glucose (07/09/2017 2:10 AM EST) athologist Signature POC Glucose 169 65 - 199 [facility] Comment: Supplemental [...] Address City/State/ZIP Code Phon e Number [address] POCT Glucose (07/09/2017 1:01 AM EST) athologist Signature POC Glucose 173 65 - 199 [facility] mg/dL [facility] Comment: Supplemental ranges: <140 mg/dL before meals <180 mg/dL all other times of the day Specimen Anatomical Collection Method Collection Time Receive d Time (Source) Location / / Volume Laterality Blood specimen 07/09/2017 1:01 AM 017 1:01 (specimen) EST AM EST Yuan Webber MD POINT OF CARE TEST ORDERABLE S Performing Organization Address City/State/ZIP Code Phon e Number [address] Blood culture (07/09/2017 12:40 AM EST) [facility] [email or web address] Method Time Signature Blood Culture No growth [place] at 5 days. [facility] Specimen Anatomical Collection Method Collection Time Receive d Time (Source) Location / / Volume Laterality Blood specimen STRUCTURE OF RIGHT 07/09/2017 12:40 3:58 (specimen) UPPER LIMB / AM EST AM EST Unknown Resulting Agency Comment Spec In Lab Yuan Webber MD MICROBIOLOGY - BLOOD ORDERAB LES Performing Organization Address City/[facility]/ZIP Code Phon e Number [address] Blood culture (07/09/2017 12:30 AM EST) [facility] [email or web address] Method Time Signature Blood Culture No growth [place] at 5 days. [facility] Specimen Anatomical Collection Method Collection Time Receive d Time (Source) Location / / Volume Laterality Blood specimen STRUCTURE OF LEFT 07/09/2017 12:30 06/25 3:59 (specimen) UPPER LIMB / AM EST AM EST Unknown Resulting Agency Comment Spec In Lab Yuan Webber MD MICROBIOLOGY - BLOOD ORDERAB LES Performing Organization Address City/[facility]/[place] [address] (ABNORMAL) Urinalysis Microscopic Exam (07/09/2017 12:05 AM EST) Analysis Performed At Patho logist Time Signature RBC UA 32 (H) 0 - 3 /HPF [facility] WBC UA 5 (H) 0 - 3 /HPF [facility] Squam Epith UA <1 <=4 /HPF [facility] Hyaline Cast 17 (H) 0 - 2 /LPF [facility] Gran Cast UA 1 (H) <=0 /LPF [facility] Uric Ac Bianca Rare (A) None /HPF [facility] Specimen (Source) Anatomical Collection Method Collection Time Re ceived Time Location / / Volume Laterality Urine specimen 07/09/2017 12:05 7 obtained via AM EST 12:39 AM EST indwelling urinary catheter (specimen) Resulting Agency Comment Spec In Lab Yuan Webber MD URINE ORDERABLES Performing Organization Address City/State/ZIP Code Phon e Number [address] (ABNORMAL) Urinalysis with reflex Culture (07/09/2017 12:05 AM EST) Patholo gist Method Time Signature Glucose UA Negative Negative [facility] mg/dL [facility] Protein UA 30 (A) Negative [facility] mg/dL [facility] Bilirubin UA Negative Negative [facility] mg/dL [facility] Comment: Clinical correlation required for [...] CENTER LABORATORY Ketones UA Negative Negative mg/dL [facility] Nitrite UA Negative Negative [facility] Leukocytes UA Negative Negative [facility] LABORATORY Appearance UA Hazy (A) Clear [facility] Spec [place] UA 1.025 1.002 - 1.030 [facility] LAB[facility]ATORY Color UA Yellow Yellow [facility] [...] Organization Address City/State/ZIP Code Phon e Number [place] [id number] [facility] [address]ORY Drive POCT Glucose (07/08/2017 11:01 PM EST) P athologist Signature POC Glucose 191 65 - 199 [facility] mg/dL [facility] Comment: Supplemental ranges: <140 mg/dL before meals <180 mg/dL all other times of the day Specimen Anatomical Collection Method Collection Time Receive d Time (Source) Location / / Volume Laterality Blood specimen 07/08/2017 11:01 7 (specimen) PM EST 11:01 PM EST Yuan Webber MD POINT OF CARE TEST ORDERABLE S Performing Organization Address City/State/[place] [address] POCT Glucose (07/08/2017 10:04 PM EST) P athologist Signature POC Glucose 198 65 - 199 [facility] mg/dL [facility] Comment: Supplemental ranges: <140 mg/dL before meals <180 mg/dL all other times of the day Specimen Anatomical Collection Method Collection Time Receive d Time (Source) Location / / Volume Laterality Blood specimen 07/08/2017 10:04 7 (specimen) PM EST 10:04 PM EST Yuan Webber MD POINT OF CARE TEST ORDERABLE S Performing Organization Address City/State/[place] [address] Prepare Albumin 5% in [...] Address City/State/ZIP Code Phon e Number [address] POCT Glucose (07/08/2017 8:28 PM EST) P athologist Signature POC Glucose 195 65 - 199 [facility] mg/dL [facility] Comment: Supplemental ranges: [...] [facility]/[place] [address] (ABNORMAL) POCT Glucose (07/08/2017 7:13 PM EST) P athologist Signature POC Glucose 220 (H) 65 - 199 [facility] mg/dL [facility] Comment: Supplemental ranges: [...] [facility]/[place] [address] POCT Glucose (07/08/2017 5:04 PM EST) P athologist Signature POC Glucose 147 65 - 199 [facility] mg/dL [facility] Comment: Supplemental ranges: <140 mg/dL before meals <180 mg/dL all other times of the day Specimen Anatomical Collection Method Collection Time Receive d Time (Source) Location / / Volume Laterality Blood specimen 07/08/2017 5:04 PM 017 5:04 (specimen) EST PM EST Yuan Webber MD POINT OF CARE TEST ORDERABLE S Performing Organization Address City/State/[place] [address] (ABNORMAL) BLOOD GAS 2 ARTERIAL (07/08/2017 4:13 PM EST) Analysis Performed At Patho logist Time Signature pH Art 7.38 7.35 - [facility] 7.45 [facility] pCO2 Art 36 35 - 45 [facility] LABORATORY pO2 Art 91 85 - 104 [facility] LABORATORY HCO3 Art 20.9 [address] [facility] 26.0 [facility] mmol/L [facility] BE Art -4.2 (L) -3.0 - 3.0 [facility] mmol/L [facility] Hgb Blood Gas 11.7 (L) 13.7 - [facility] 16.5 gm/dL [facility] O2HB Art 95.1 94.0 - [facility] 97.0 % [facility] COHB Art 0.6 % [place] [facility] PF Ratio Art 228 [facility]ORY Specimen Anatomical Collection Method Collection Time Receive d Time (Source) Location / / Volume Laterality Blood specimen 07/08/2017 4:13 PM 017 4:13 (specimen) EST PM EST Yuan Webber MD CHEMISTRY ORDERABLES Performing Organization Address City/State/[place] [address] POCT Glucose (07/08/2017 4:01 PM EST) athologist Signature POC Glucose 148 65 - 199 [place] mg/dL [facility] Comment: Supplemental ranges: <140 mg/dL before meals <180 mg/dL all other times of the day Specimen Anatomical Collection Method Collection Time Receive d Time (Source) Location / / Volume Laterality Blood specimen 07/08/2017 4:01 PM 017 4:01 (specimen) EST PM EST Yuan Webber MD POINT OF CARE TEST ORDERABLE S Performing Organization Address City/State/ZIP Code Phon e Number [address] POCT Glucose (07/08/2017 3:21 PM EST) athologist Signature POC Glucose 118 65 - 199 [facility] mg/dL [facility] Comment: Supplemental ranges: <140 mg/dL before meals <180 mg/dL all other times of the day Specimen Anatomical Collection Method Collection Time Receive d Time (Source) Location / / Volume Laterality Blood specimen 07/08/2017 3:21 PM 017 3:21 (specimen) EST PM EST Yuan Webber MD POINT OF CARE TEST ORDERABLE S Performing Organization Address City/State/ZIP Code Phon e Number [address] POCT Glucose (07/08/2017 2:01 PM EST) athologist Signature POC Glucose 129 65 - 199 [place] mg/dL [facility] Comment: Supplemental ranges: <140 mg/dL before meals <180 mg/dL all other times of the day Specimen Anatomical Collection Method Collection Time Receive d Time (Source) Location / / Volume Laterality Blood specimen 07/08/2017 2:01 PM 017 2:01 (specimen) EST PM EST Yuan Webber MD POINT OF CARE TEST ORDERABLE S Performing Organization Address City/State/ZIP Code Phon e Number [address] POCT Glucose (07/08/2017 11:53 AM EST) athologist Signature POC Glucose 156 65 - 199 [facility] mg/dL [facility] Comment: Supplemental ranges: <140 mg/dL before meals <180 mg/dL all other times of the day Specimen Anatomical Collection Method Collection Time Receive d Time (Source) Location / / Volume Laterality Blood specimen 07/08/2017 11:53 7 (specimen) AM EST 11:53 AM EST Yuan Webber MD POINT OF CARE TEST ORDERABLE S Performing Organization Address City/State/[place] [address] POCT Glucose (07/08/2017 11:04 AM EST) athologist Signature POC Glucose 181 65 - 199 [facility] mg/dL [facility] Comment: Supplemental ranges: [...] [facility]/[place] [address] (ABNORMAL) POCT Glucose (07/08/2017 9:24 AM EST) athologist Signature POC Glucose 203 (H) 65 - 199 [facility] mg/dL [facility] Comment: Supplemental ranges: <140 mg/dL before meals <180 mg/dL all other times of the day Specimen Anatomical Collection Method Collection Time Receive d Time (Source) Location / / Volume Laterality Blood specimen 07/08/2017 9:24 AM 017 9:24 (specimen) EST AM EST Yuan Webber MD POINT OF CARE TEST ORDERABLE S Performing Organization Address City/State/[place] [address] APTT (07/08/2017 8:40 AM EST) athologist Signature PTT 33 25 - 35 sec [facility] Comment: The recommended therapeutic range for fu ll dose, unfractionated heparin at [facility] is 80 ? 114 seconds. [...] [facility]/[place] [address] (ABNORMAL) Prothrombin Time (07/08/2017 [...] Organization Address City/State/[place] [address] (ABNORMAL) POCT Glucose (07/08/2017 7:38 AM EST) athologist Signature POC Glucose 232 (H) 65 - 199 [facility] mg/dL [facility] Comment: Supplemental ranges: <140 mg/dL before meals <180 mg/dL all other times of the day Specimen Anatomical Collection Method Collection Time Receive d Time (Source) Location / / Volume Laterality Blood specimen 07/08/2017 7:38 AM 017 7:38 (specimen) EST AM EST Yuan Webber MD POINT OF CARE TEST ORDERABLE S Performing Organization Address City/State/[place] [address] (ABNORMAL) POCT Glucose (07/08/2017 7:07 AM EST) athologist Signature POC Glucose 234 (H) 65 - 199 [place] mg/dL [facility] Comment: Supplemental ranges: <140 mg/dL before meals <180 mg/dL all other times of the day Specimen Anatomical Collection Method Collection Time Receive d Time (Source) Location / / Volume Laterality Blood specimen 07/08/2017 7:07 AM 017 7:07 (specimen) EST AM EST Yuan Webber MD POINT OF CARE TEST ORDERABLE S Performing Organization Address City/State/[place] [address] (ABNORMAL) POCT Glucose (07/08/2017 6:04 AM EST) athologist Signature POC Glucose 225 (H) 65 - 199 [place] mg/dL [facility] Comment: Supplemental ranges: <140 mg/dL before meals <180 mg/dL all other times of the day Specimen Anatomical Collection Method Collection Time Receive d Time (Source) Location / / Volume Laterality Blood specimen 07/08/2017 6:04 AM 017 6:04 (specimen) EST AM EST Yuan Webber MD POINT OF CARE TEST ORDERABLE S Performing Organization Address City/State/[place] [address] (ABNORMAL) POCT Glucose (07/08/2017 5:31 AM EST) athologist Signature POC Glucose 216 (H) 65 - 199 [place] mg/dL [facility] Comment: Supplemental ranges: <140 mg/dL before meals <180 mg/dL all other times of the day Specimen Anatomical Collection Method Collection Time Receive d Time (Source) Location / / Volume Laterality Blood specimen 07/08/2017 5:31 AM 017 5:31 (specimen) EST AM EST Yuan Webber MD POINT OF CARE TEST ORDERABLE S Performing Organization Address City/State/[place] [address] (ABNORMAL) POCT Glucose (07/08/2017 4:52 AM EST) P athologist Signature POC Glucose 257 (H) 65 - 199 [facility] mg/dL [facility] Comment: Supplemental ranges: [...] [facility]/[place] [address] (ABNORMAL) BLOOD GAS 2 ARTERIAL (07/08/2017 4:04 AM EST) Analysis Performed At Patho logist Time Signature pH Art 7.30 (L) 7.35 - [facility] 7.45 [facility] pCO2 Art 41 35 - 45 [facility] mmHg [facility] pO2 Art 83 (L) 85 - 104 [facility] mmHg [facility] HCO3 Art 19.6 (L) 20.0 - [facility] 26.0 [facility] mmol/L [facility] BE Art -6.8 (L) -3.0 - 3.0 [facility] mmol/L [facility] Hgb Blood Gas 12.2 (L) 13.7 - [facility] 16.5 gm/dL [facility] O2HB Art 93.5 (L) 94.0 - [facility] 97.0 % [facility] COHB Art 0.4 % [place] [...] Bld 274 (H) 65 - 199 mg/dL [facility] Comment: Diabetes: >=200 mg/dL plus symp toms. Lactate WB 4.4 (Critical) 0.5 - 2.2 mmol/L [facility] Comment: Noted by instrument repair technician. FIO2 Art 40 % [facility] LAB[facility]ATORY PF Ratio Art 208 [facility] Specimen Anatomical Collection Method Collection Time Receive d Time (Source) Location / / Volume Laterality Blood specimen 07/08/2017 4:04 AM 017 4:04 (specimen) EST AM EST Daphne Shahid MD CHEMISTRY ORDERABLES Performing Organization Address City/[facility]/[place] [address] Scan, Peripheral Blood (07/08/2017 [...] [facility]/[place] [address] (ABNORMAL) Differential, Automated (07/08/2017 4:00 AM EST) [facility] Method Time Signature Neutrophils % 85.4 % [facility] Neutr Abs (ANC) 16.07 (H) 1.70 - [facility] 6.10 [facility] x10(3)/[facility] L LABORATORY Lymphocytes % 3.5 % [facility] Lymphocytes Abs 0.6 (L) 0.9 - 3.2 [facility] x10(3)/[facility] LABORATORY Monocytes % 10.4 % [facility] Monocyte Abs 2.0 (H) 0.3 - 0.9 [facility] x10(3)/[facility] LABORATORY Eosinophils % 0.0 % [facility] Eosinophils Abs 0.0 0.0 - 0.4 [facility] x10(3)/[facility] LABORATORY Basophils % 0.1 % [facility] Basophils Abs 0.0 0.0 - 0.1 [facility] x10(3)/[facility] LABORATORY Immature Gran % 0.60 % [...] Organization Address City/State/[place] [address] (ABNORMAL) Hemogram (07/08/2017 4:00 AM EST) Analysis Performed At Patho logist Time Signature WBC 18.8 (H) 4.0 - 9.5 [facility] x[facility](3)/[facility] LABORATORY RBC 4.00 (L) 4.58 - [facility] 5.54 [facility] x10(6)/[facility] LABORATORY Hemoglobin 11.9 (L) 13.7 - [facility] 16.5 gm/dL [facility] Hematocrit 35.9 (L) 40.5 - [facility] 48.5 % [facility] MCV 89.8 82.9 - [facility] 93.1 [facility] LABORATORY MCH 29.8 27.5 - [facility] 32.1 pg [facility] MCHC 33.1 32.0 - [facility] 35.7 gm/dL [facility] Platelets 232 145 - 357 [facility] x10(3)/[facility] LABORATORY RDWSD 47.6 (H) 36.0 - [place] 45.0 [facility] LABORATORY RDWCV 14.5 (H) 11.4 - [facility] R[facility] 13.8 % [facility] MPV 9.5 7.6 - 12.9 [facility] LABORATORY nRBC % Auto 0.0 % [facility] nRBC Abs Auto 0.000 0.000 - [place] 0.000 [facility] x10(3)/[facility] LABORATORY Specimen Anatomical Collection Method Collection Time Receive d Time (Source) Location / / Volume Laterality Blood specimen 07/08/2017 4:00 AM 017 4:09 (specimen) EST AM EST Resulting Agency Comment Spec In Lab Yuan Webber MD HEMATOLOGY ORDERABLES Performing Organization Address City/State/[place] [address] (ABNORMAL) Electrolytes panel (07/08/2017 4:00 AM EST) P athologist Signature Sodium 139 135 - 145 [facility] mmol/L [facility] Potassium 4.7 3.5 - 5.0 [facility] mmol/L [facility] Comment: result rechecked-[id number] Please note: [...] Organization Address City/State/[place] [address] (ABNORMAL) Cardiac Enzymes (LEB/CGP) (07/08/2017 4:00 AM EST) P athologist Signature Troponin-T 1.88 (H) 0.[address] - [facility] 0.00 ng/mL [facility] Comment: The [...] sample may be indicated. Reference: Third [place] Definition of Myocardial Infarction. Journal of the [place] [employer] 2012;60:1581-98 CK, Total 413 [...] [facility]/ZIP Code Phon e Number [address] (ABNORMAL) Glucose, fasting (07/08/2017 4:00 AM EST) athologist Signature Glucose 287 (H) 65 - 99 [facility] Fasting mg/dL [facility] Comment: ?Fasting* [...] Performing Organization Address City/[facility]/ZIP [facility] [place] [address] (ABNORMAL) Creatinine (07/08/2017 4:00 AM EST) Analysis Performed At Patho logist Time Signature Creatinine 1.55 (H) 0.80 - [facility] 1.50 mg/dL [facility] Estimated GFR 44 (L) >=60 [facility] Comment: The reported eGFR should be multiplied b y 1.2 for patients. The MDRD is not an appropriate measure o f renal function for patients with body mass extremes or in patients with acute kidney failure. http://LEYIO/DHnkdep http://LEYIO/DHMCnkf Specimen Anatomical Collection Method Collection Time Receive d Time (Source) Location / / Volume Laterality Blood specimen 07/08/2017 4:00 AM 017 4:09 (specimen) EST AM EST Resulting Agency Comment Spec In Lab Yuan Webber MD CHEMISTRY ORDERABLES Performing Organization Address City/[facility]/ZIP [facility] Phon e Number [address] BUN (07/08/2017 4:00 AM EST) P athologist Signature BUN 16 10 - 20 [facility] mg/dL [facility] Specimen Anatomical Collection Method Collection Time Receive d Time (Source) Location / / Volume Laterality Blood specimen 07/08/2017 4:00 AM 017 4:09 (specimen) EST AM EST Resulting Agency Comment Spec In Lab Yuan Webber MD CHEMISTRY ORDERABLES Performing Organization Address City/[facility]/ZIP [facility] [place] [address] (ABNORMAL) POCT Glucose (07/08/2017 3:00 AM EST) P athologist Signature POC Glucose 273 (H) 65 - 199 [facility] mg/dL [facility] Comment: Supplemental ranges: <140 mg/dL before meals <180 mg/dL all other times of the day Specimen Anatomical Collection Method Collection Time Receive d Time (Source) Location / / Volume Laterality Blood specimen 07/08/2017 3:00 AM 017 3:00 (specimen) EST AM EST Daphne Shahid MD POINT OF CARE TEST ORDERABLE S Performing Organization Address City/State/[place] [address] (ABNORMAL) POCT Glucose (07/08/2017 1:57 AM EST) athologist Signature POC Glucose 288 (H) 65 - 199 [facility] mg/dL [facility] Comment: Supplemental ranges: <140 mg/dL before meals <180 mg/dL all other times of the day Specimen Anatomical Collection Method Collection Time Receive d Time (Source) Location / / Volume Laterality Blood specimen 07/08/2017 1:57 AM 017 1:57 (specimen) EST AM EST Daphne Shahid MD POINT OF CARE TEST ORDERABLE S Performing Organization Address City/State/[place] [address] (ABNORMAL) POCT Glucose (07/08/2017 1:01 AM EST) athologist Signature POC Glucose 315 (H) 65 - 199 [facility] mg/dL [facility] Comment: Supplemental ranges: <140 mg/dL before meals <180 mg/dL all other times of the day Specimen Anatomical Collection Method Collection Time Receive d Time (Source) Location / / Volume Laterality Blood specimen 07/08/2017 1:01 AM 017 1:01 (specimen) EST AM EST Daphne Shahid MD POINT OF CARE TEST ORDERABLE S Performing Organization Address City/State/[place] [address] (ABNORMAL) BLOOD GAS 2 ARTERIAL (07/08/2017 12:09 AM EST) athologist Signature pH Art 7.26 7.35 - [facility] (Critical) 7.45 [facility] Comment: Noted by instrument repair [...] [facility] Comment: Noted by instrument repair technician. FIO2 Art 40 % [facility] PF Ratio Art 240 [facility] Specimen Anatomical Collection Method Collection Time Receive d Time (Source) Location / / Volume Laterality Blood specimen Arterial Draw / 07/08/2017 12:09 2016 5:31 (specimen) Unknown AM EST AM EST Resulting Agency Comment Spec In Lab Samy Maldonado MD CHEMISTRY ORDERABLES Performing Organization Address City/State/[place] [address] (ABNORMAL) POCT Glucose (07/07/2017 10:56 PM EST) athologist Signature POC Glucose 292 (H) 65 - 199 [facility] mg/dL [facility] Comment: Supplemental ranges: <140 mg/dL before meals <180 mg/dL all other times of the day Specimen Anatomical Collection Method Collection Time Receive d Time (Source) Location / / Volume Laterality Blood specimen 07/07/2017 10:56 7 (specimen) PM EST 10:56 PM EST Daphne Shahid MD POINT OF CARE TEST ORDERABLE S Performing Organization Address City/State/[place] [address] (ABNORMAL) BLOOD GAS 2 ARTERIAL (07/07/2017 10:04 PM EST) athologist Signature pH Art 7.22 7.35 - [facility] (Critical) 7.45 [facility] Comment: Noted by instrument repair [...] [facility] Comment: Noted by instrument repair technician. FIO2 Art 40 % [facility] PF Ratio Art 235 [facility] Specimen Anatomical Collection Method Collection Time Receive d Time (Source) Location / / Volume Laterality Blood specimen 07/07/2017 10:04 7 (specimen) PM EST 10:04 PM EST Daphne Shahid MD CHEMISTRY ORDERABLES Performing Organization Address City/State/ZIP Code Phon e Number [address] (ABNORMAL) Hemoglobin (07/07/2017 10:00 PM EST) P athologist Signature Hemoglobin 12.8 (L) 13.7 - [facility] 16.5 gm/dL [facility] Specimen Anatomical Collection Method Collection Time Receive d Time (Source) Location / / Volume Laterality Blood specimen 07/07/2017 10:00 7 (specimen) PM EST 10:13 PM EST Resulting Agency Comment Spec In Lab Yuan Webber MD HEMATOLOGY ORDERABLES Performing Organization Address City/State/ZIP Code Phon e Number [address] (ABNORMAL) Potassium (07/07/2017 10:00 PM EST) P athologist Signature Potassium 3.4 (L) 3.5 - 5.0 [facility] mmol/L [facility] Comment: Please note: [...] [facility]/[place] [address] (ABNORMAL) POCT Glucose (07/07/2017 8:49 PM EST) athologist Signature POC Glucose 241 (H) 65 - 199 [facility] mg/dL [facility] Comment: Supplemental ranges: [...] [facility]/[place] [address] Prepare Albumin 5% in [...] [facility]/[place] [address] EKG 12 Lead (07/07/2017 7:17 PM EST) Component Value Ref Range Test Analysis Performed Pathologis t Method Time At Signature Ventricular rate 75 BPM MUSE SYSTEM Atrial Rate 75 BPM MUSE SYSTEM P-R Interval 168 ms MUSE SYSTEM QRS Duration 104 ms MUSE SYSTEM Q-T Interval 462 ms MUSE SYSTEM QTC Calculated 515 ms MUSE SYSTEM (Bezet) Calculated P [place] 52 degrees MUSE SYSTEM Calculated R [place] -40 degrees MUSE SYSTEM Calculated T [place] 39 degrees MUSE SYSTEM INTERPRETATION Normal [...] Signature pH Art 7.21 7.35 - [facility] (Critical) 7.45 [facility] Comment: Noted by instrument repair [facility] Comment: Noted by instrument repair [...] [facility] Comment: Noted by instrument repair technician. FIO2 Art 100 % [facility] PF Ratio Art 238 [facility] Specimen Anatomical Collection Method Collection Time Receive d Time (Source) Location / / Volume Laterality Blood specimen 07/07/2017 6:57 PM 017 6:57 (specimen) EST PM EST Daphne Shahid MD CHEMISTRY ORDERABLES Performing Organization Address City/State/[place] [address] (ABNORMAL) BLOOD GAS 2 ARTERIAL (07/07/2017 5:31 PM EST) P athologist Signature pH Art 7.29 7.35 - [facility] (Critical) 7.45 [facility] Comment: Noted by instrument repair [...] Organization Address City/State/[place] [address] Fibrinogen (07/07/2017 5:30 PM EST) P athologist Signature Fibrinogen 224 180 - 510 [facility] mg/dL [facility] Comment: Called by: JEET, Read [...] HEMATOLOGY ORDERABLES Performing Organization Address [facility] Phon e Number [address] APTT (07/07/2017 5:30 PM EST) P athologist Signature PTT 30 25 - 35 sec [facility] Comment: The recommended therapeutic range for fu ll dose, unfractionated heparin at [facility] is 80 ? 114 seconds. [...] Perez MD HEMATOLOGY ORDERABLES Performing Organization Address [facility] [place] [address] (ABNORMAL) Prothrombin Time (07/07/2017 [...] HEMATOLOGY ORDERABLES Performing Organization Address [facility]/[place] [address] (ABNORMAL) Hemogram (07/07/2017 5:30 PM EST) athologist Signature WBC 19.6 (H) 4.0 - 9.5 [facility] x10(3)/[facility] LABORATORY RBC 3.08 (L) 4.58 - [facility] 5.54 [facility] x10(6)/[facility] LABORATORY Hemoglobin 9.2 (L) 13.7 - [facility] 16.5 gm/dL [facility] Hematocrit 28.0 (L) 40.5 - [facility] 48.5 % [facility] Comment: This result has been called to MONICA WEINSTEIN LUISA by DONALD GROSSMAN on 07 07 2017 at 1759, and has been read back. MCV 90.9 82.9 - 93.1 [facility] LABORATORY MCH 29.9 27.5 - 32.1 pg [facility] MCHC 32.9 32.0 - 35.7 gm/dL [facility] LABORATORY Platelets 155 145 - 357 x10(3)/[facility] LABORATORY RDWSD 46.5 (H) 36.0 - 45.0 [facility] LABORATORY RDWCV 14.1 (H) 11.4 - 13.8 % [facility] LABORATORY MPV 9.5 7.6 - 12.9 [place] [...] Organization Address City/State/[place] [address] Prepare Platelets, Apheresis (07/07/2017 5:00 PM EST) P athologist Signature Dispensed? Yes [facility] Specimen Anatomical Collection Method Collection Time Receive d Time (Source) Location / / Volume Laterality Blood specimen 07/07/2017 5:00 PM 017 4:58 (specimen) EST PM EST Daphne Shahid MD BLOOD BANK ORDERABLES Performing Organization Address City/State/[place] [address] Platelet count (07/07/2017 4:55 PM EST) athologist Signature Platelets 177 145 - 357 [facility] x10(3)/[facility] LABORATORY Plat Immature 1.5 0.0 - 7.4 [facility] % % [facility] Comment: Limitation of the Immature Platelet Frac tion (IPF)-May be less reliable when the platelet count is less than 93l588/u L due to statistical imprecision. The IPF [...] in a decreased state of production. References: [employer] The Clinical Value of the Immature Platelet Fraction (IPF) in Cell Recovery Document Number [id number] 12/2010 [employer] The Role of the Imm [...] [facility]/[place] [address] (ABNORMAL) Hemoglobin and Hematocrit, blood (07/07/2017 4:55 PM EST) P athologist Signature Hemoglobin 9.1 (L) 13.7 - 16.5 [facility] gm/dL [facility] Comment: This result has been [...] [facility]/[place] [address] (ABNORMAL) BLOOD GAS 2 ARTERIAL (07/07/2017 4:38 PM EST) Analysis Performed At Patho logist Time Signature pH Art 7.37 7.35 - [facility] 7.45 [facility] pCO2 Art 44 35 - 45 [facility] mmHg [facility] pO2 Art 322 (H) 85 - 104 [facility] mmHg [facility] HCO3 Art 24.9 [address] - [facility] 26.0 [facility] mmol/L [facility] BE Art -0.4 -3.0 - 3.0 [facility] mmol/L [facility] Hgb Blood Gas 10.1 (L) 13.7 - [facility] 16.5 gm/dL [facility] O2HB Art 98.7 (H) 94.0 - [facility] 97.0 % [facility] COHB Art 0.1 % [place] [facility] Comment: Noted by instrument repair [...] Organization Address City/State/[place] [address] (ABNORMAL) BLOOD GAS 2 VENOUS (07/07/2017 4:06 PM EST) Analysis Performed At Patho logist Time Signature pH Cody 7.31 (L) 7.32 - [facility] 7.42 [facility] pCO2 Cody 47 41 - 51 [facility] LABORATORY pO2 Cody 53 (H) 25 - 40 [facility] LABORATORY HCO3 Cody 22.7 mmol/L [facility] BE Cody -3.7 mmol/L [facility] Hgb Blood Gas 10.2 (L) 13.7 - [facility] 16.5 gm/dL [facility] O2HB Cody 81.0 % [place] Comment: Noted by instrument repair [...] Organization Address City/State/[place] [address] (ABNORMAL) BLOOD GAS 2 ARTERIAL (07/07/2017 4:05 PM EST) Analysis Performed At Patho logist Time Signature pH Art 7.36 7.35 - [facility] 7.45 [facility] pCO2 Art 40 35 - 45 [facility] LABORATORY pO2 Art 282 (H) 85 - 104 [facility] LABORATORY HCO3 Art 22.1 20.0 - [facility] 26.0 [facility] mmol/L [facility] BE Art -3.4 (L) -3.0 - 3.0 [facility] mmol/L [facility] Hgb Blood Gas 10.2 (L) 13.7 - [facility] 16.5 gm/dL [facility] O2HB Art 98.4 (H) 94.0 - [facility] 97.0 % [facility] COHB Art 0.3 % [place] Comment: Noted by instrument repair [...] Organization Address City/State/[place] [address] (ABNORMAL) BLOOD GAS 2 ARTERIAL (07/07/2017 2:29 PM EST) Analysis Performed At Patho logist Time Signature pH Art 7.43 7.35 - [facility] 7.45 [facility] pCO2 Art 36 35 - 45 [facility] LABOR[facility]ORY pO2 Art 221 (H) 85 - 104 [facility] LABORATORY HCO3 Art 23.2 20.0 - [facility] 26.0 [facility] mmol/L [facility] BE Art -1.2 -3.0 - 3.0 [facility] mmol/L [facility] Hgb Blood Gas 13.9 13.7 - [facility] 16.5 gm/dL [facility] O2HB Art 97.8 (H) 94.0 - [facility] 97.0 % [facility] COHB Art 1.1 % [place] [...] Organization Address City/State/[place] [address] Prepare Coag Factors (Non-Hemophilia) (07/07/2017 1:25 PM EST) P athologist Signature Dispensed? Yes [facility] Specimen Anatomical Collection Method Collection Time Receive d Time (Source) Location / / Volume Laterality Blood specimen 07/07/2017 1:25 PM 017 1:21 (specimen) EST PM EST Daphne Shahid MD BLOOD BANK ORDERABLES Performing Organization Address City/State/ZIP Code Phon e Number [address] Prepare RBC (07/07/2017 1:10 PM EST) athologist Signature Dispensed? Yes [facility] Specimen Anatomical Collection Method Collection Time Receive d Time (Source) Location / / Volume Laterality Blood specimen 07/07/2017 1:10 PM 017 1:05 (specimen) EST PM EST Daphne Shahid MD BLOOD BANK ORDERABLES Performing Organization Address City/State/[place] [address] POCT Glucose (07/07/2017 11:56 AM EST) athologist Signature POC Glucose 188 65 - 199 [facility] mg/dL [facility] Comment: Supplemental ranges: <140 mg/dL before meals <180 mg/dL all other times of the day Specimen Anatomical Collection Method Collection Time Receive d Time (Source) Location / / Volume Laterality Blood specimen 07/07/2017 11:56 7 (specimen) AM EST 11:56 AM EST Daphne Shahid MD POINT OF CARE TEST ORDERABLE S Performing Organization Address City/State/[place] [address] POCT Glucose (07/07/2017 11:05 AM EST) athologist Signature POC Glucose 168 65 - 199 [facility] mg/dL [facility] Comment: Supplemental ranges: <140 mg/dL before meals <180 mg/dL all other times of the day Specimen Anatomical Collection Method Collection Time Receive d Time (Source) Location / / Volume Laterality Blood specimen 07/07/2017 11:05 7 (specimen) AM EST 11:05 AM EST Daphne Shahid MD POINT OF CARE TEST ORDERABLE S Performing Organization Address City/State/[place] [address] POCT Glucose (07/07/2017 10:02 AM EST) P athologist Signature POC Glucose 191 65 - 199 [place] mg/dL [facility] Comment: Supplemental ranges: <140 mg/dL before meals <180 mg/dL all other times of the day Specimen Anatomical Collection Method Collection Time Receive d Time (Source) Location / / Volume Laterality Blood specimen 07/07/2017 10:02 7 (specimen) AM EST 10:02 AM EST Daphne Shahid MD POINT OF CARE TEST ORDERABLE S Performing Organization Address City/State/[place] [address] POCT Glucose (07/07/2017 7:53 AM EST) athologist Signature POC Glucose 178 65 - 199 [facility] mg/dL [facility] Comment: Supplemental ranges: <140 mg/dL before meals <180 mg/dL all other times of the day Specimen Anatomical Collection Method Collection Time Receive d Time (Source) Location / / Volume Laterality Blood specimen 07/07/2017 7:53 AM 017 7:53 (specimen) EST AM EST Daphne Shahid MD POINT OF CARE TEST ORDERABLE S Performing Organization Address City/State/ZIP Code Phon e Number [address] POCT Glucose (07/07/2017 7:03 AM EST) athologist Signature POC Glucose 188 65 - 199 [place] mg/dL [facility] Comment: Supplemental ranges: <140 mg/dL before meals <180 mg/dL all other times of the day Specimen Anatomical Collection Method Collection Time Receive d Time (Source) Location / / Volume Laterality Blood specimen 07/07/2017 7:03 AM 017 7:03 (specimen) EST AM EST Daphne Shahid MD POINT OF CARE TEST ORDERABLE S Performing Organization Address City/State/[place] [address] (ABNORMAL) POCT Glucose (07/07/2017 6:17 AM EST) athologist Signature POC Glucose 207 (H) 65 - 199 [facility] mg/dL [facility] Comment: Supplemental ranges: [...] [facility]/ZIP Code Phon e Number [address] Differential, Automated (07/07/2017 5:15 AM EST) athologist Signature Neutrophils % 69.7 % [facility] Neutr Abs (ANC) 5.32 1.70 - [facility] 6.10 [facility] x10(3)/[facility] LABORATORY Lymphocytes % 16.3 % [facility] Lymphocytes Abs 1.2 0.9 - 3.2 [facility] x10(3)/[facility] LABORATORY Monocytes % 10.5 % [facility] Monocyte Abs 0.8 0.3 - 0.9 [facility] x10(3)/[facility] LABORATORY Eosinophils % 2.5 % [facility] Eosinophils Abs 0.2 0.0 - [address].4 [facility] x10(3)/[facility] LABORATORY Basophils % 0.7 % [facility] Basophils Abs 0.0 0.0 - [address].1 [facility] x10(3)/[facility] LABORATORY [...] Melisa Gran Abs 0.02 0.00 - 0.04 x10(3)/[facility] LABORATORY Specimen Anatomical Collection Method Collection Time Receive d Time (Source) Location / / Volume Laterality Blood specimen 07/07/2017 5:15 AM 017 5:34 (specimen) EST AM EST Resulting Agency Comment Spec In Lab Daphne Shahid MD HEMATOLOGY ORDERABLES Performing Organization Address City/State/[place] [address] (ABNORMAL) Hemogram (07/07/2017 5:15 AM EST) Analysis Performed At Patho logist Time Signature WBC 7.6 4.0 - 9.5 [facility] x10(3)/[facility] LABORATORY RBC 4.82 4.58 [facility] x10(6)/[facility] Hemoglobin 14.4 13.7 - [facility] 16.5 gm/dL [facility] Hematocrit 42.1 40.5 - [facility] 48.5 % [facility] MCV 87.3 82.9 - [facility] 93.1 [facility] LABORATORY MCH 29.9 27.5 - [place] [facility] 32.1 pg [facility] MCHC 34.2 32.0 - [facility] 35.7 gm/dL [facility] Platelets 188 145 - 357 [facility] x10(3)/[facility] LABORATORY RDWSD 45.1 (H) 36.0 - [facility]0 [facility] LABORATORY RDWCV 14.3 (H) 11.4 - [facility] 13.8 % [facility] MPV 9.4 7.6 - 12.9 [facility] LABORATORY nRBC % Auto 0.0 % [facility] nRBC Abs Auto 0.000 0.000 - [facility] 0.000 [facility] x10(3)/[facility] LABORATORY Specimen Anatomical Collection Method Collection Time Receive d Time (Source) Location / / Volume Laterality Blood specimen 07/07/2017 5:15 AM 017 5:34 (specimen) EST AM EST Resulting Agency Comment Spec In Lab Daphne Shahid MD HEMATOLOGY ORDERABLES Performing Organization Address City/[facility]/[place] [address] (ABNORMAL) APTT (07/07/2017 5:15 AM EST) P athologist Signature PTT 69 (H) 25 - 35 sec [facility] Comment: The recommended therapeutic range for fu ll dose, unfractionated heparin at [facility] is 80 ? 114 seconds. [...] [facility]/[place] [address] Magnesium (07/07/2017 5:15 AM EST) athologist Signature Magnesium 0.94 0.69 - 1.07 [facility] mmol/L [facility] Specimen Anatomical Collection Method Collection Time Receive d Time (Source) Location / / Volume Laterality Blood specimen 07/07/2017 5:15 AM 017 5:34 (specimen) EST AM EST Resulting Agency Comment Spec In Lab Daphne Shahid MD CHEMISTRY ORDERABLES Performing Organization Address City/[facility]/[place] [address] (ABNORMAL) Basic Metabolic Panel (non-fasting) (07/07/2017 5:15 AM EST) athologist Signature Glucose Lvl 203 (H) 65 - 199 [facility] mg/dL [facility] Comment: Diabetes: >=200 [...] [facility] Estimated GFR >60 >=60 [facility] Comment: The reported eGFR should be multiplied b y 1.2 for patients. The MDRD is not an appropriate measure o f renal function for patients with body mass extremes or in patients with acute kidney failure. http://[employer]/DHnkdep http://LEY[employer]/DHMCnkf Specimen Anatomical Collection Method Collection Time Receive d Time (Source) Location / / Volume Laterality Blood specimen 07/07/2017 5:15 AM 017 5:34 (specimen) EST AM EST Resulting Agency Comment Spec In Lab Daphne Shahid MD CHEMISTRY ORDERABLES Performing Organization Address City/State/[place] [address] (ABNORMAL) Cardiac Enzymes (LEB/CGP) (07/07/2017 5:15 AM EST) athologist Signature Troponin-T 2.07 (H) 0.00 - [facility] 0.[facility] ng/mL [facility] Comment: The [...] sample may be indicated. Reference: Third [place] Definition of Myocardial Infarction. Journal of the [place] [employer] 2012;60:1581-98 CK, Total 88 0 - 200 unit/L [facility] Specimen Anatomical Collection Method Collection Time Receive d Time (Source) Location / / Volume Laterality Blood specimen 07/07/2017 5:15 AM 017 5:34 (specimen) EST AM EST Resulting Agency Comment Spec In Lab Daphne Shahid MD CHEMISTRY ORDERABLES Performing Organization Address City/State/[place] [address] POCT Glucose (07/07/2017 5:01 AM EST) P athologist Signature POC Glucose 182 65 - 199 [facility] mg/dL [facility] Comment: Supplemental ranges: <140 mg/dL before meals <180 mg/dL all other times of the day Specimen Anatomical Collection Method Collection Time Receive d Time (Source) Location / / Volume Laterality Blood specimen 07/07/2017 5:01 AM 017 5:01 (specimen) EST AM EST Daphne Shahid MD POINT OF CARE TEST ORDERABLE S Performing Organization Address City/State/ZIP Code Phon e Number [address] POCT Glucose (07/07/2017 4:08 AM EST) P athologist Signature POC Glucose 199 65 - 199 [facility] mg/dL [facility] Comment: Supplemental ranges: [...] [facility]/ZIP Code Phon e Number [address] POCT Glucose (07/07/2017 3:03 AM EST) athologist Signature POC Glucose 188 65 - 199 [facility] mg/dL [facility] Comment: Supplemental ranges: <140 mg/dL before meals <180 mg/dL all other times of the day Specimen Anatomical Collection Method Collection Time Receive d Time (Source) Location / / Volume Laterality Blood specimen 07/07/2017 3:03 AM 017 3:03 (specimen) EST AM EST Daphne Shahid MD POINT OF CARE TEST ORDERABLE S Performing Organization Address City/State/[place] [address] (ABNORMAL) POCT Glucose (07/07/2017 2:08 AM EST) athologist Signature POC Glucose 200 (H) 65 - 199 [facility] mg/dL [facility] Comment: Supplemental ranges: <140 mg/dL before meals <180 mg/dL all other times of the day Specimen Anatomical Collection Method Collection Time Receive d Time (Source) Location / / Volume Laterality Blood specimen 07/07/2017 2:08 AM 017 2:08 (specimen) EST AM EST Daphne Shahid MD POINT OF CARE TEST ORDERABLE S Performing Organization Address City/State/[place] [address] (ABNORMAL) POCT Glucose (07/07/2017 1:31 AM EST) P athologist Signature POC Glucose 209 (H) 65 - 199 [facility] mg/dL [facility] Comment: Supplemental ranges: <140 mg/dL before meals <180 mg/dL all other times of the day Specimen Anatomical Collection Method Collection Time Receive d Time (Source) Location / / Volume Laterality Blood specimen 07/07/2017 1:31 AM 017 1:31 (specimen) EST AM EST Daphne Shahid MD POINT OF CARE TEST ORDERABLE S Performing Organization Address City/State/[place] [address] XR Chest PA or [...] Signature POC Glucose 161 65 - 199 [facility] mg/dL [facility] Comment: Supplemental ranges: [...] [facility]/ZIP Code Phon e Number [address] (ABNORMAL) APTT (07/07/2017 12:00 AM EST) athologist [facility] PTT 103 (H) 25 - 35 sec [facility] Comment: The recommended therapeutic range for fu ll dose, unfractionated heparin at [facility] is 80 ? 114 seconds. [...] Organization Address City/State/[place] [address] POCT Glucose (07/06/2017 9:55 PM EST) athologist Signature POC Glucose 109 65 - 199 [facility] mg/dL [facility] Comment: Supplemental [...] Address City/State/ZIP Code Phon e Number [address] POCT Glucose (07/06/2017 9:04 PM EST) athologist Signature POC Glucose 120 65 - 199 [facility] mg/dL [facility] Comment: Supplemental ranges: <140 mg/dL before meals <180 mg/dL all other times of the day Specimen Anatomical Collection Method Collection Time Receive d Time (Source) Location / / Volume Laterality Blood specimen 07/06/2017 9:04 PM 017 9:04 (specimen) EST PM EST Daphne Shahid MD POINT OF CARE TEST ORDERABLE S Performing Organization Address City/State/[place] [address] POCT Glucose (07/06/2017 7:45 PM EST) athologist Signature POC Glucose 158 65 - 199 [facility] mg/dL [facility] Comment: Supplemental ranges: [...] [facility]/[place] [address] Potassium (07/06/2017 7:40 PM EST) athologist Signature Potassium 3.9 3.5 - 5.0 [facility] mmol/L [facility] Comment: Please note: [...] Organization Address City/State/[place] [address] (ABNORMAL) Cardiac Enzymes (LEB/CGP) (07/06/2017 7:40 PM EST) athologist Signature Troponin-T 2.27 (H) 0.00 - [facility] 0.00 ng/mL [facility] Comment: The [...] sample may be indicated. Reference: Third [place] Definition of Myocardial Infarction. Journal of the [place] [employer] 2012;60:1581-98 CK, Total 93 0 - 200 unit/L [facility] Specimen Anatomical Collection Method Collection Time Receive d Time (Source) Location / / Volume Laterality Blood specimen 07/06/2017 7:40 PM 017 7:52 (specimen) EST PM EST Resulting Agency Comment Spec In Lab Daphne Shahid MD CHEMISTRY ORDERABLES Performing Organization Address City/State/[place] [address] (ABNORMAL) POCT Glucose (07/06/2017 7:13 PM EST) P athologist Signature POC Glucose 200 (H) 65 - 199 [facility] mg/dL [facility] Comment: Supplemental ranges: <140 mg/dL before meals <180 mg/dL all other times of the day Specimen Anatomical Collection Method Collection Time Receive d Time (Source) Location / / Volume Laterality Blood specimen 07/06/2017 7:13 PM 017 7:13 (specimen) EST PM EST Daphne Shahid MD POINT OF CARE TEST ORDERABLE S Performing Organization Address City/State/ZIP Code Phon e Number [address] (ABNORMAL) APTT (07/06/2017 6:15 PM EST) athologist [facility] PTT 94 (H) 25 - 35 sec [facility] Comment: The recommended therapeutic range for fu ll dose, unfractionated heparin at [facility] is 80 ? 114 seconds. [...] Organization Address City/State/[place] [address] (ABNORMAL) POCT Glucose (07/06/2017 6:03 PM EST) athologist Signature POC Glucose 236 (H) 65 - 199 [facility] mg/dL [facility] Comment: Supplemental ranges: <140 mg/dL before meals <180 mg/dL all other times of the day Specimen Anatomical Collection Method Collection Time Receive d Time (Source) Location / / Volume Laterality Blood specimen 07/06/2017 6:03 PM 017 6:03 (specimen) EST PM EST Daphne Shahid MD POINT OF CARE TEST ORDERABLE S Performing Organization Address City/State/[place] [address] (ABNORMAL) POCT Glucose (07/06/2017 5:01 PM EST) P athologist Signature POC Glucose 235 (H) 65 - 199 [facility] mg/dL [facility] Comment: Supplemental ranges: [...] [facility]/[place] [address] (ABNORMAL) POCT Glucose (07/06/2017 4:06 PM EST) athologist Signature POC Glucose 202 (H) 65 - 199 [facility] mg/dL [facility] Comment: Supplemental ranges: <140 mg/dL before meals <180 mg/dL all other times of the day Specimen Anatomical Collection Method Collection Time Receive d Time (Source) Location / / Volume Laterality Blood specimen 07/06/2017 4:06 PM 017 4:06 (specimen) EST PM EST Daphne Shahid MD POINT OF CARE TEST ORDERABLE S Performing Organization Address City/State/[place] [address] POCT Glucose (07/06/2017 2:59 PM EST) P athologist Signature POC Glucose 178 65 - 199 [facility] mg/dL [facility] Comment: Supplemental ranges: [...] [facility]/[place] [address] (ABNORMAL) Cardiac Enzymes (LEB/CGP) (07/06/2017 2:10 PM EST) P athologist Signature Troponin-T 2.34 (H) 0.00 - [facility] 0.[facility] ng/mL [facility] Comment: The [...] sample may be indicated. Reference: Third [place] Definition of Myocardial Infarction. Journal of the [place] [employer] 2012;60:1581-98 CK, Total 101 0 - 200 unit/L [facility] Specimen Anatomical Collection Method Collection Time Receive d Time (Source) Location / / Volume Laterality Blood specimen 07/06/2017 2:10 PM 017 2:26 (specimen) EST PM EST Resulting Agency Comment Spec In Lab Daphne Shahid MD CHEMISTRY ORDERABLES Performing Organization Address City/[facility]/[place] [address] POCT Glucose (07/06/2017 2:08 PM EST) P athologist Signature POC Glucose 192 65 - 199 [facility] mg/dL [facility] Comment: Supplemental ranges: <140 mg/dL before meals <180 mg/dL all other times of the day Specimen Anatomical Collection Method Collection Time Receive d Time (Source) Location / / Volume Laterality Blood specimen 07/06/2017 2:08 PM 017 2:08 (specimen) EST PM EST Daphne Shahid MD POINT OF CARE TEST ORDERABLE S Performing Organization Address City/State/ZIP Code Phon e Number [address] POCT Glucose (07/06/2017 1:04 PM EST) athologist Signature POC Glucose 162 65 - 199 [facility] mg/dL [facility] Comment: Supplemental ranges: <140 mg/dL before meals <180 mg/dL all other times of the day Specimen Anatomical Collection Method Collection Time Receive d Time (Source) Location / / Volume Laterality Blood specimen 07/06/2017 1:04 PM 017 1:04 (specimen) EST PM EST Daphne Shahid MD POINT OF CARE TEST ORDERABLE S Performing Organization Address City/State/ZIP Code Phon e Number [address] POCT Glucose (07/06/2017 12:05 PM EST) athologist Signature POC Glucose 196 65 - 199 [facility] mg/dL [facility] Comment: Supplemental ranges: <140 mg/dL before meals <180 mg/dL all other times of the day Specimen Anatomical Collection Method Collection Time Receive d Time (Source) Location / / Volume Laterality Blood specimen 07/06/2017 12:05 7 (specimen) PM EST 12:05 PM EST Daphne Shahid MD POINT OF CARE TEST ORDERABLE S Performing Organization Address City/State/ZIP Code Phon e Number [address] EKG 12 Lead (07/06/2017 12:00 PM EST) Component Value Ref Range Test Analysis Performed Pathologis t Method Time At Signature Ventricular rate 91 BPM MUSE SYSTEM Atrial Rate 91 BPM MUSE SYSTEM P-R Interval 140 ms MUSE SYSTEM QRS Duration 94 ms MUSE SYSTEM Q-T Interval 394 ms MUSE SYSTEM QTC Calculated 484 ms MUSE SYSTEM (Bezet) Calculated P [place] 36 degrees MUSE SYSTEM Calculated R [place] -19 degrees MUSE SYSTEM Calculated T [place] 104 degrees MUSE SYSTEM INTERPRETATION Normal sinus rhythm MUSE SYSTEM 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) ST & T wave abnormality, consider lateral ischemia Abnormal ECG When compared with ECG of 05-JUL-2017 20:39, No significant change was found Confirmed by MD Luci, Taurus Braun ([id number]) on 07/06/2017 5:07:33 PM Specimen Anatomical Collection [...] [facility]/[place] [address] Antibody screen (07/06/2017 12:00 PM EST) [facility] [employer] Method Time Signature Ab Screen Negative [facility] LABORATORY Expires at 07/09/2017 [facility] [id number] on: [facility] LABORATORY Specimen Anatomical Collection Method Collection Time Receive d Time (Source) Location / / Volume Laterality Blood specimen 07/06/2017 12:00 7 (specimen) PM EST 12:24 PM EST Resulting Agency Comment Spec In Lab Daphne Shahid MD BLOOD BANK ORDERABLES Performing Organization Address City/[facility]/ZIP Code Phon e Number [address] ABO/Rh Typing (07/06/2017 12:00 [...] Organization Address City/State/[place] [address] Prothrombin Time (07/06/2017 11:24 [...] [facility]/ZIP Code Phon e Number [place] [id number] (ABNORMAL) APTT (07/06/2017 11:24 AM EST) P athologist Signature PTT 52 (H) 25 - 35 sec [facility] LABORATORY Comment: The recommended therapeutic range for fu ll dose, unfractionated heparin at [facility] is 80 ? 114 seconds. [...] Address City/State/ZIP Code Phon e Number [address] POCT Glucose (07/06/2017 11:02 AM EST) athologist Signature POC Glucose 187 65 - 199 [place] mg/dL [facility] Comment: Supplemental ranges: <140 mg/dL before meals <180 mg/dL all other times of the day Specimen Anatomical Collection Method Collection Time Receive d Time (Source) Location / / Volume Laterality Blood specimen 07/06/2017 11:02 7 (specimen) AM EST 11:02 AM EST Daphne Shahid MD POINT OF CARE TEST ORDERABLE S Performing Organization Address City/State/[place] [address] POCT Glucose (07/06/2017 10:18 AM EST) athologist Signature POC Glucose 193 65 - 199 [place] mg/dL [facility] Comment: Supplemental ranges: <140 mg/dL before meals <180 mg/dL all other times of the day Specimen Anatomical Collection Method Collection Time Receive d Time (Source) Location / / Volume Laterality Blood specimen 07/06/2017 10:18 7 (specimen) AM EST 10:18 AM EST Daphne Shahid MD POINT OF CARE TEST ORDERABLE S Performing Organization Address City/State/[place] [address] POCT Glucose (07/06/2017 9:25 AM EST) athologist Signature POC Glucose 182 65 - 199 [place] mg/dL [facility] Comment: Supplemental ranges: [...] [facility]/[place] [address] (ABNORMAL) Cardiac Enzymes (LEB/CGP) (07/06/2017 8:10 AM EST) athologist Signature Troponin-T 2.26 (H) 0.00 - [place] 0.00 ng/mL [facility] Comment: The [...] sample may be indicated. Reference: Third [place] Definition of Myocardial Infarction. Journal of the [place] [employer] 2012;60:1581-98 CK, Total 124 0 - 200 unit/L [facility]ORATORY Specimen Anatomical Collection Method Collection Time Receive d Time (Source) Location / / Volume Laterality Blood specimen 07/06/2017 8:10 AM 017 8:23 (specimen) EST AM EST Resulting Agency Comment Spec In Lab Daphne Shahid MD CHEMISTRY ORDERABLES Performing Organization Address City/State/ZIP Code Phon e Number [place] Magnesium (07/06/2017 8:10 AM EST) athologist Signature Magnesium 0.84 0.69 - 1.07 [facility] mmol/L [facility] Specimen Anatomical Collection Method Collection Time Receive d Time (Source) Location / / Volume Laterality Blood specimen 07/06/2017 8:10 AM 017 8:21 (specimen) EST AM EST Resulting Agency Comment Spec In Lab Daphne Shahid MD CHEMISTRY ORDERABLES Performing Organization Address City/State/ZIP Code Phon e Number [address] (ABNORMAL) Basic Metabolic Panel (non-fasting) (07/06/2017 8:10 AM EST) athologist Signature Glucose Lvl 199 65 - 199 [facility] mg/dL [facility] Comment: Diabetes: >=200 [...] [facility] Estimated GFR >60 >=60 [facility] LABORATORY Comment: The reported eGFR should be multiplied b y 1.2 for patients. The MDRD is not an appropriate measure o f renal function for patients with body mass extremes or in patients with acute kidney failure. http://Neokinetics.[employer]/DHnkdep http://Neokinetics.[employer]/DHMCnkf Specimen Anatomical Collection Method Collection Time Receive d Time (Source) Location / / Volume Laterality Blood specimen 07/06/2017 8:10 AM 017 8:21 (specimen) EST AM EST Resulting Agency Comment Spec In Lab Daphne Shahid MD CHEMISTRY ORDERABLES Performing Organization Address City/[facility]/ZIP Code Phon e Number [address] POCT Glucose (07/06/2017 7:34 AM EST) athologist Signature POC Glucose 198 65 - 199 [facility] mg/dL [facility] Comment: Supplemental [...] [facility]/ZIP Code Phon e Number [address] POCT Glucose (07/06/2017 7:03 AM EST) athologist Signature POC Glucose 181 65 - 199 [facility] mg/dL [facility] Comment: Supplemental ranges: [...] [facility]/ZIP Code Phon e Number [address] XR Chest PA or [...] [facility] mg/dL [facility] Comment: Supplemental ranges: <140 mg/dL before meals <180 mg/dL all other times of the day Specimen Anatomical Collection Method Collection Time Receive d Time (Source) Location / / Volume Laterality Blood specimen 07/06/2017 6:21 AM 017 6:21 (specimen) EST AM EST Daphne Shahid MD POINT OF CARE TEST ORDERABLE S Performing Organization Address City/State/ZIP Code Phon e Number [address] POCT Glucose (07/06/2017 5:08 AM EST) athologist Signature POC Glucose 154 65 - 199 [place] mg/dL [facility] Comment: Supplemental ranges: <140 mg/dL before meals <180 mg/dL all other times of the day Specimen Anatomical Collection Method Collection Time Receive d Time (Source) Location / / Volume Laterality Blood specimen 07/06/2017 5:08 AM 017 5:08 (specimen) EST AM EST Daphne Shahid MD POINT OF CARE TEST ORDERABLE S Performing Organization Address City/State/ZIP Code Phon e Number [address] POCT Glucose (07/06/2017 4:05 AM EST) athologist Signature POC Glucose 142 65 - 199 [place] mg/dL [facility] Comment: Supplemental ranges: <140 mg/dL before meals <180 mg/dL all other times of the day Specimen Anatomical Collection Method Collection Time Receive d Time (Source) Location / / Volume Laterality Blood specimen 07/06/2017 4:05 AM 017 4:05 (specimen) EST AM EST Daphne Shahid MD POINT OF CARE TEST ORDERABLE S Performing Organization Address City/State/[place] [address] POCT Glucose (07/06/2017 3:00 AM EST) athologist Signature POC Glucose 116 65 - 199 [facility] RYAN mg/dL [facility] Comment: Supplemental ranges: [...] [facility]/[place] [address] [facility] [address] Potassium (07/06/2017 2:20 AM EST) athologist Signature Potassium 3.9 3.5 - 5.0 [facility] mmol/L [facility] Comment: Please note: [...] [facility]/ZIP Code Phon e Number [address] Differential, Automated (07/06/2017 2:20 AM EST) athologist Signature Neutrophils % 72.9 % [facility] LABORATORY Neutr Abs (ANC) 5.53 1.70 - [facility] 6.10 [facility] x10(3)/[facility] LABORATORY Lymphocytes % 16.4 % [facility] LABORATORY Lymphocytes Abs 1.2 0.9 - 3.2 [facility] x10(3)/[facility] LABORATORY Monocytes % 9.4 % [facility] LABORATORY Monocyte Abs 0.7 0.3 - 0.9 [facility] x10(3)/[facility] LABORATORY Eosinophils % 0.5 % [facility] LABORATORY Eosinophils Abs 0.0 0.0 - 0.4 [facility] x10(3)/[facility] LABORATORY Basophils % 0.4 % [facility] LABORATORY Basophils Abs 0.0 0.0 - [address].1 [facility] x10(3)/[facility] LABORATORY [...] 0.00 - 0.04 x10(3)/[facility] LABORATORY Specimen Anatomical Collection Method Collection Time Receive d Time (Source) Location / / Volume Laterality Blood specimen 07/06/2017 2:20 AM 017 2:33 (specimen) EST AM EST Resulting Agency Comment Spec In Lab Daphne Shahid MD HEMATOLOGY ORDERABLES Performing Organization Address City/State/[place] [address] (ABNORMAL) Hemogram (07/06/2017 2:20 AM EST) Analysis Performed At Patho logist Time Signature WBC 7.6 4.0 - 9.5 [facility] x10(3)/[facility] LABORATORY RBC 4.52 (L) 4.58 - [facility] 5.54 [facility] x10(6)/[facility] LABORATORY Hemoglobin 13.4 (L) 13.7 - [facility] 16[facility] gm/dL [facility] Hematocrit 39.7 (L) 40.5 - [facility] 48.5 % [facility] MCV 87.8 82.9 - [facility] 93.1 [facility] LABORATORY MCH 29.6 27.5 - [facility] RYAN 32.1 pg [facility] MCHC 33.8 32.0 - [facility] 35.7 gm/dL [facility] Platelets 189 145 - 357 [facility] x10(3)/[facility] LABORATORY RDWSD 45.6 (H) 36.0 - [facility] 45.0 [facility] LABORATORY RDWCV 14.3 (H) 11.4 - [facility] RYAN 13.8 % [facility]ORAT[facility] MPV 9.1 7.6 - 12.9 [facility] LABORATORY nRBC % Auto 0.0 % [facility] LABORATORY nRBC Abs Auto 0.000 0.000 - [place] 0.000 [facility] x10(3)/[facility] LABORATORY Specimen Anatomical Collection Method Collection Time Receive d Time (Source) Location / / Volume Laterality Blood specimen 07/06/2017 2:20 AM 017 2:33 (specimen) EST AM EST Resulting Agency Comment Spec In Lab Daphne Shahid MD HEMATOLOGY ORDERABLES Performing Organization Address City/State/ZIP Code Phon e Number [address] (ABNORMAL) APTT (07/06/2017 2:20 AM EST) P athologist Signature PTT 52 (H) 25 - 35 sec [facility]ORATORY Comment: The recommended therapeutic range for fu ll dose, unfractionated heparin at [facility] is 80 ? 114 seconds. [...] [facility]/ZIP Code Phon e Number [address] POCT Glucose (07/06/2017 2:20 AM EST) P athologist Signature POC Glucose 115 65 - 199 [facility] mg/dL [facility] Comment: Supplemental ranges: <140 mg/dL before meals <180 mg/dL all other times of the day Specimen Anatomical Collection Method Collection Time Receive d Time (Source) Location / / Volume Laterality Blood specimen 07/06/2017 2:20 AM 017 2:20 (specimen) EST AM EST Daphne Shahid MD POINT OF CARE TEST ORDERABLE S Performing Organization Address City/State/[place] [address] (ABNORMAL) Cardiac Enzymes (LEB/CGP) (07/06/2017 2:20 AM EST) P athologist Signature Troponin-T 2.13 (H) 0.00 - [place] 0.00 ng/mL [facility] Comment: The [...] sample may be indicated. Reference: Third [place] Definition of Myocardial Infarction. Journal of the [employer] 2012;60:1581-98 CK, Total 129 0 - 200 unit/L [facility]ORATORY Specimen Anatomical Collection Method Collection Time Receive d Time (Source) Location / / Volume Laterality Blood specimen 07/06/2017 2:20 AM 017 2:33 (specimen) EST AM EST Resulting Agency Comment Spec In Lab Daphne Shahid MD CHEMISTRY ORDERABLES Performing Organization Address City/State/[place] [address] (ABNORMAL) Hemoglobin A1c (07/06/2017 2:20 AM EST) Analysis Performed At Patho logist Time Signature Hemoglobin A1C 6.8 (H) 4.3 - 5.6 [facility] % [facility] Comment: Reference Range: 4.3 - [...] Mellitus, Diabetes Care 2013; 36: Suppl. 1, S67-11 Est Avg Gluc See note mg/dL [facility] [...] into estimated average glucose values. ??Diabetes Care 2008:31(8):4898-0317. Specimen Anatomical Collection Method Collection Time Receive d Time (Source) Location / / Volume Laterality Blood specimen 07/06/2017 2:20 AM 017 2:34 (specimen) EST AM EST Resulting Agency Comment Spec In Lab Daphne Shahid MD CHEMISTRY ORDERABLES Performing Organization Address City/State/[place] [address] (ABNORMAL) Lipid Panel (07/06/2017 2:20 AM EST) Patholo gist Method Time Signature Chol, Total 150 <=239 [place] mg/dL [facility] LABORATORY Triglycerides 129 <=199 [facility] mg/dL [facility] LABORATORY HDL 32 (L) >=40 [place] mg/dL [facility] LABORATORY LDL Cholesterol 92 <=190 [facility] mg/dL [facility] LABORATORY Chol/HDL Ratio 4.7 ratio [facility]ORATORY Lipid See Note [place] Interpretation [facility] LABORATORY Comment: Lipid management should be guided by a p atient? s ASCVD risk, goals and preferences. ACC/AHA Guidelines recommend high intens ity statin if clinical ASCVD or LDL greater than or equal to 190 mg/dL. http://Neokinetics.[employer]/YGI-HWV-Xtgrpqkcz Adults aged 40-75 with LDL 70-189 mg/dL should have their 10 year ASCVD risk estimated with the ACC/AHA ASCVD risk es timator http://tools.acc.org/XRQDK-Nulc-Ubxhwbaq r/ Statin should be discussed if risk [...] Organization Address City/State/[place] [address] POCT Glucose (07/06/2017 1:09 AM EST) P athologist Signature POC Glucose 121 65 - 199 [facility] mg/dL [facility] Comment: Supplemental ranges: <140 mg/dL before meals <180 mg/dL all other times of the day Specimen Anatomical Collection Method Collection Time Receive d Time (Source) Location / / Volume Laterality Blood specimen 07/06/2017 1:09 AM 017 1:09 (specimen) EST AM EST Daphne Shahid MD POINT OF CARE TEST ORDERABLE S Performing Organization Address City/State/[place] [address] POCT Glucose (07/06/2017 12:06 AM EST) P athologist Signature POC Glucose 147 65 - 199 [place] mg/dL [facility] Comment: Supplemental ranges: <140 mg/dL before meals <180 mg/dL all other times of the day Specimen Anatomical Collection Method Collection Time Receive d Time (Source) Location / / Volume Laterality Blood specimen 07/06/2017 12:06 7 (specimen) AM EST 12:06 AM EST Daphne Shahid MD POINT OF CARE TEST ORDERABLE S Performing Organization Address City/State/[place] [address] (ABNORMAL) POCT Glucose (07/05/2017 10:56 PM EST) P athologist Signature POC Glucose 200 (H) 65 - 199 [place] mg/dL [facility] Comment: Supplemental ranges: <140 mg/dL before meals <180 mg/dL all other times of the day Specimen Anatomical Collection Method Collection Time Receive d Time (Source) Location / / Volume Laterality Blood specimen 07/05/2017 10:56 7 (specimen) PM EST 10:56 PM EST Daphne Shahid MD POINT OF CARE TEST ORDERABLE S Performing Organization Address City/State/[place] [address] (ABNORMAL) POCT Glucose (07/05/2017 10:05 PM EST) P athologist Signature POC Glucose 225 (H) 65 - 199 [place] mg/dL [facility] Comment: Supplemental ranges: <140 mg/dL before meals <180 mg/dL all other times of the day Specimen Anatomical Collection Method Collection Time Receive d Time (Source) Location / / Volume Laterality Blood specimen 07/05/2017 10:05 7 (specimen) PM EST 10:05 PM EST Daphne Shahid MD POINT OF CARE TEST ORDERABLE S Performing Organization Address City/State/[place] [address] (ABNORMAL) POCT Glucose (07/05/2017 9:02 PM EST) P athologist Signature POC Glucose 301 (H) 65 - 199 [facility] mg/dL [facility] Comment: Supplemental ranges: <140 mg/dL before meals <180 mg/dL all other times of the day Specimen Anatomical Collection Method Collection Time Receive d Time (Source) Location / / Volume Laterality Blood specimen 07/05/2017 9:02 PM 017 9:02 (specimen) EST PM EST Daphne Shahid MD POINT OF CARE TEST ORDERABLE S Performing Organization Address City/State/[place] [address] XR Chest PA or [...] 474 ms MUSE SYSTEM (Bezet) Calculated P [place] 50 degrees MUSE SYSTEM Calculated R [place] -28 degrees MUSE SYSTEM Calculated T [place] 90 degrees MUSE SYSTEM INTERPRETATION Sinus [...] Abs (ANC) 9.08 (H) 1.70 - [facility] 6.10 [facility] x10(3)/[facility] L LABORATORY Lymphocytes % 7.0 % [facility] LABORATORY Lymphocytes Abs 0.7 (L) 0.9 - 3.2 [facility] x10(3)/[facility] LABORATORY Monocytes % 3.7 % [facility] LABORATORY Monocyte Abs 0.4 0.3 - 0.9 [facility] x10(3)/[facility] LABORATORY Eosinophils % 0.1 % [facility] LABORATORY Eosinophils Abs 0.0 0.0 - 0.4 [facility] x10(3)/[facility] LABORATORY Basophils % 0.2 % [facility] LABORATORY Basophils Abs 0.0 0.0 - 0.1 [facility] x10(3)/[facility] LABORATORY Immature Gran % 0.60 % [...] Organization Address City/State/[place] [address] (ABNORMAL) Hemogram (07/05/2017 8:20 PM EST) Analysis Performed At Patho logist Time Signature WBC 10.3 (H) 4.0 - 9.5 [facility] x10(3)/[facility] LABORATORY RBC 4.64 4.58 - [facility] 5.54 [facility] x10(6)/[facility] LABORATORY Hemoglobin 14.1 13.7 - [facility] 16.5 gm/dL [facility] Hematocrit 40.8 40.5 - [facility] 48.5 % [facility] MCV 87.9 82.9 - [facility] 93.1 [facility] LABORATORY MCH 30.4 27.5 - [place] [facility] 32.1 pg [facility] MCHC 34.6 32.0 - [place] 35.7 gm/dL [facility] Platelets 204 145 - 357 [facility] x10(3)/[facility] LABORATORY RDWSD 46.1 (H) 36.0 - [facility] 45.0 [facility] LABORATORY RDWCV 14.5 (H) 11.4 - [facility] RYAN 13.8 % [facility]ORAT[facility] MPV 9.7 7.6 - 12.9 [facility] LABORATORY nRBC % Auto 0.0 % [facility] LABORATORY nRBC Abs Auto 0.000 0.000 - [place] ZHAORYAN 0.000 [facility] x10(3)/[facility] LABORATORY Specimen Anatomical Collection Method Collection Time Receive d Time (Source) Location / / Volume Laterality Blood specimen 07/05/2017 8:20 PM 017 8:27 (specimen) EST PM EST Resulting Agency Comment Spec In Lab Daphne Shahid MD HEMATOLOGY ORDERABLES Performing Organization Address City/State/[place] [address] APTT (07/05/2017 8:20 PM EST) P athologist Signature PTT 32 25 - 35 sec [facility]ORY Comment: The recommended therapeutic range for fu ll dose, unfractionated heparin at [facility] is 80 ? 114 seconds. [...] Organization Address City/State/[place] [address] (ABNORMAL) Cardiac Enzymes (LEB/CGP) (07/05/2017 8:20 PM EST) athologist Signature Troponin-T 2.11 (H) 0.00 - [place] [facility] 0.00 ng/mL [facility] Comment: The [...] sample may be indicated. Reference: Third [place] Definition of Myocardial Infarction. Journal of the [employer] 2012;60:1581-98 CK, Total 149 0 - 200 unit/L [facility] Specimen Anatomical Collection Method Collection Time Receive d Time (Source) Location / / Volume Laterality Blood specimen 07/05/2017 8:20 PM 017 8:27 (specimen) EST PM EST Resulting Agency Comment Spec In Lab Daphne Shahid MD CHEMISTRY ORDERABLES Performing Organization Address City/State/[place] [address] (ABNORMAL) Magnesium (07/05/2017 8:20 PM EST) P athologist Signature Magnesium 0.68 (L) 0.69 - 1.07 [facility] mmol/L [facility] Specimen Anatomical Collection Method Collection Time Receive d Time (Source) Location / / Volume Laterality Blood specimen 07/05/2017 8:20 PM 017 8:27 (specimen) EST PM EST Resulting Agency Comment Spec In Lab Daphne Shahid MD CHEMISTRY ORDERABLES Performing Organization Address City/State/[place] [address] (ABNORMAL) Basic Metabolic Panel (non-fasting) (07/05/2017 8:20 PM EST) P athologist Signature Glucose Lvl 321 (H) 65 - 199 [facility] mg/dL [facility] Comment: Diabetes: >=200 [...] [facility] Estimated GFR >60 >=60 [facility] LABORATORY Comment: The reported eGFR should be multiplied b y 1.2 for patients. The MDRD is not an appropriate measure o f renal function for patients with body mass extremes or in patients with acute kidney failure. http://Neokinetics.[employer]/DHnkdep http://[employer]/DHMCnkf Specimen Anatomical Collection Method Collection Time Receive d Time (Source) Location / / Volume Laterality Blood specimen 07/05/2017 8:20 PM 017 8:27 (specimen) EST PM EST Resulting Agency Comment Spec In Lab Daphne Shahid MD CHEMISTRY ORDERABLES Performing Organization Address City/State/ZIP Code Phon e [place] [address] (ABNORMAL) POCT Glucose (07/05/2017 7:32 PM EST) P athologist Signature POC Glucose 296 (H) 65 - 199 [facility] mg/dL [facility] Comment: Supplemental ranges: <140 mg/dL before meals <180 mg/dL all other times of the day Specimen Anatomical Collection Method Collection Time Receive d Time (Source) Location / / Volume Laterality Blood specimen 07/05/2017 7:32 PM 017 7:32 (specimen) EST PM EST Daphne Shahid MD POINT OF CARE TEST ORDERABLE S Performing Organization Address City/State/[place] [address] CARDIAC CATHETERIZATION (07/05/2017 6:47 PM EST) Anatomical Region Laterality Modality Other Specimen (Source) Anatomical Location Collection Method / Collectio n Time Received Time / Laterality Volume Narrative 07/05/2017 7:27 PM EST ?[facility] ? Cardiac Cathete rization/Intervention Report ? Patient Name: Natalya, Gregory ? Procedure Date: 07/05/2017 ? A #: [id number] ? Primary Physician: Clarisa, Jet T ? Case #: [id number] ? File Name: [id number] ? Catheterization Order Number: [id number] ? [facility] ? Final Report [place], [place] ? Patient Name: ? Gregory Natalya ?ID#: ?[id number] ? : ?1945 ? Procedure Date: ? [...] presented with: non -STEMI (w/i 7 days). Mongolian ?Cardiovascular Society angina c lass was IV. [...] might be different from the original. [facility] Cardiac Catheterization/Intervention Re port Patient Name: Gregory Hoang Procedure Date: 07/05/2017 A #: [id number] Primary Physician: Jet Mckenna Case #: [id number] File Name: [id number] Catheterization Order Number: [id number] [facility] Final Report [place], [place] Patient Name: Gregory Hoang ID#: [id number] : 1945 Procedure Date: July 05, [...] presented with: non-STEMI ( w/i 7 days). [place] Cardi[employer] Society angina class was IV. No [...] Mccollum ? (Age): 1945(72y) Med Rec#: ? [id number] ?Sex: ?M ? Site Loc: ? [facility] ?Ht / Wt: ??173(cm)/86(kg) Pt. Loc: ?CCU ? BSA: ?2 Study Date: ?? 07/05/2017 ?Pt. Type: Inpatient Tape: ? Referring: Daphne Shahid ([id number]) Referring: MANDA ALCANTAR Reading: Blade Preston ([id number]) Groundskeeping Maintenance Worker: Dayami Paula BA, [facility] Diagnosis: [...] E-wave Vmax ?0.8 ?m/sec ? MV deceleration azko640 ?msec ? MV A-wave Vmax ?0.8 ?m/sec [...] ? Mid-Inferior ?Akinetic ? Mid-Inferoseptal ?Hypokinetic ? [place]-Septal ? Akinetic ? [place]-Anterior ? Hypokinetic ? [place]-Lateral ?Hypokinetic ? [place]-Inferior ? Akinetic ? [place]-Tip ?Akinetic ? This report has been electronically sign ed by: _ Blade Preston MD ? 07/06/2017 08 :53:15 Images reviewed and interpretation verif ied [facility] Cardiac Ultrasound Laboratory Procedure Note Blade Preston MD - 07/06/2017Formatt ing of this note might be different from the original. Procedure: Transthoracic Echocardiogram Patient: NATALYA MCBRIDE(Age): [birth year]72y) Med Rec#: [id number] Sex: M Site Loc: [facility] Ht / Wt: 173(cm)/86(kg) Pt. Loc: CCU BSA: 2 Study Date: 07/05/2017 Pt. Type: Inpatie nt Tape: Referring: Daphne Shahid ([id number]) Referring: MANDA ALCANTAR Reading: Blade Preston ([id number]) Groundskeeping Maintenance Worker: Dayami Paula BA, [facility] Diagnosis: [...] MV E-wave Vmax 0.8 m/sec MV deceleration duhy499 msec MV A-wave Vmax 0.8 m/sec MV [...] Hypokinetic Mid-Posterolateral Hypokinetic Mid-Inferior Akinetic Mid-Inferoseptal Hypokinetic [place]-Septal Akinetic [place]-Anterior Hypokinetic [place]-Lateral Hypokinetic [place]-Inferior Akinetic [place]-Tip Akinetic This report has been electronically sign ed by: _ Blade Preston MD 07/06/2017 08:53:15 Images reviewed and interpretation verif ied [facility] Cardiac Ultrasound Laboratory Daphne Shahid MD ECHO ORDERABLES Differential, Automated (07/05/2017 4:55 PM EST) athologist Signature Neutrophils % 77.0 % [facility] LABORATORY Neutr Abs (ANC) 5.26 1.70 - [facility] 6.10 [facility] x10(3)/[facility] LABORATORY Lymphocytes % 13.3 % [facility] Lymphocytes Abs 0.9 0.[address] [facility] x10(3)/[facility] LABORATORY Monocytes % 8.2 % [facility] Monocyte Abs 0.6 0.3 - [address].9 [facility] x10(3)/[facility] LABORATORY Eosinophils % 0.7 % [facility] Eosinophils Abs 0.0 0.0 - [address].4 [facility] x10(3)/[facility] LABORATORY Basophils % 0.4 % [facility] Basophils Abs 0.0 0.0 - [address].1 [facility] x10(3)/[facility] LABORATORY [...] 0.00 - 0.04 x10(3)/[facility] LABORATORY Specimen Anatomical Collection Method Collection Time Receive d Time (Source) Location / / Volume Laterality Blood specimen 07/05/2017 4:55 PM 017 5:24 (specimen) EST PM EST Resulting Agency Comment Spec In Lab Daphne Shahid MD HEMATOLOGY ORDERABLES Performing Organization Address City/State/[place] [address] (ABNORMAL) Hemogram (07/05/2017 4:55 PM EST) Analysis Performed At Patho logist Time Signature WBC 6.8 4.0 - 9.5 [facility] x10(3)/[facility] LABORATORY RBC 4.67 4.58 - [facility] 5.54 [facility] x10(6)/[facility] LABORATORY Hemoglobin 14.0 13.7 - [facility] 16[facility] gm/dL [facility] Hematocrit 41.0 40.5 - [facility] 48.5 % [facility] MCV 87.8 82.9 - [facility] 93.1 [facility] LABORATORY MCH 30.0 27.5 - [facility] 32.1 pg [facility] MCHC 34.1 32.0 - [facility] 35.7 gm/dL [facility] Platelets 197 145 - 357 [facility] x10(3)/[facility] LABORATORY RDWSD 46.4 (H) 36.0 - [facility] 45.0 [facility] LABORATORY RDWCV 14.5 (H) 11.4 - [facility] 13.8 % [facility] LABORAT[facility] MPV 9.7 7.6 - 12.9 [facility] LABORATORY nRBC % Auto 0.0 % [facility] LABORATORY nRBC Abs Auto 0.000 0.000 - [facility] 0.000 [facility] x10(3)/[facility] LABORATORY Specimen Anatomical Collection Method Collection Time Receive d Time (Source) Location / / Volume Laterality Blood specimen 07/05/2017 4:55 PM 017 5:24 (specimen) EST PM EST Resulting Agency Comment Spec In Lab Daphne Shahid MD HEMATOLOGY ORDERABLES Performing Organization Address City/State/[place] [address] (ABNORMAL) Cardiac Enzymes (LEB/CGP) [...] sample may be indicated. Reference: Third [place] Definition of Myocardial Infarction. Journal of the [place] College [employer]iology 2012;60:1581-98 CK, Total 191 0 - 200 unit/L [facility]OR[facility] Specimen Anatomical Collection Method Collection Time Receive d Time (Source) Location / / Volume Laterality Blood specimen 07/05/2017 4:55 PM 017 5:56 (specimen) EST PM EST Resulting Agency Comment Spec In Lab Daphne Shahid MD CHEMISTRY ORDERABLES Performing Organization Address City/[facility]/[place] [address] (ABNORMAL) pro-Brain Natriuretic Peptide (07/05/2017 4:55 PM EST) athologist Signature ProBNP 1,598 (H) <=125 [facility] pg/mL [facility] Specimen Anatomical Collection Method Collection Time Receive d Time (Source) Location / / Volume Laterality Blood specimen 07/05/2017 4:55 PM 017 5:24 (specimen) EST PM EST Resulting Agency Comment Spec In Lab Daphne Shahid MD CHEMISTRY ORDERABLES Performing Organization Address City/[facility]/ZIP Code Phon e Number [address] Magnesium (07/05/2017 4:55 PM EST) athologist Signature Magnesium 0.78 0.69 - 1.07 [facility] mmol/L [facility]OR[facility] Specimen Anatomical Collection Method Collection Time Receive d Time (Source) Location / / Volume Laterality Blood specimen 07/05/2017 4:55 PM 017 5:24 (specimen) EST PM EST Resulting Agency Comment Spec In Lab Daphne Shahid MD CHEMISTRY ORDERABLES Performing Organization Address City/[facility]/[place] [address] (ABNORMAL) Basic Metabolic Panel (non-fasting) (07/05/2017 4:55 PM EST) athologist Signature Glucose Lvl 230 (H) 65 - 199 [facility] mg/dL [facility] Comment: Diabetes: >=200 [...] [facility] Estimated GFR >60 >=60 [facility] LABORATORY Comment: The reported eGFR should be multiplied b y 1.2 for patients. The MDRD is not an appropriate measure o f renal function for patients with body mass extremes or in patients with acute kidney failure. http://LEYIO/DHnkdep http://LEYIO/[facility] Specimen Anatomical Collection Method Collection Time Receive d Time (Source) Location / / Volume Laterality Blood specimen 07/05/2017 4:55 PM 017 5:24 (specimen) EST PM EST Resulting Agency Comment Spec In Lab Daphne Shahid MD CHEMISTRY ORDERABLES Performing Organization Address City/[facility]/[place] [address] (ABNORMAL) APTT (07/05/2017 4:55 PM EST) P athologist Signature PTT 41 (H) 25 - 35 sec [facility] Comment: The recommended therapeutic range for fu ll dose, unfractionated heparin at [facility] is 80 ? 114 seconds. [...] Organization Address City/State/[place] [address] (ABNORMAL) POCT Glucose (07/05/2017 4:53 PM EST) P athologist Signature POC Glucose 208 (H) 65 - 199 [facility] mg/dL [facility] Comment: Supplemental ranges: <140 mg/dL before meals <180 mg/dL all other times of the day Specimen Anatomical Collection Method Collection Time Receive d Time (Source) Location / / Volume Laterality Blood specimen 07/05/2017 4:53 PM 017 4:53 (specimen) EST PM EST Daphne Shahid MD POINT OF CARE TEST ORDERABLE S Performing Organization Address City/State/ZIP Code Phon e Number [address] EKG 12 Lead (07/05/2017 4:32 PM EST) Component Value Ref Range Test Analysis Performed Pathologis t Method Time At Signature Ventricular rate 97 BPM MUSE SYSTEM Atrial Rate 97 BPM MUSE SYSTEM P-R Interval 148 ms MUSE SYSTEM QRS Duration 96 ms MUSE SYSTEM Q-T Interval 364 ms MUSE SYSTEM QTC Calculated 462 ms MUSE SYSTEM (Bezet) Calculated P [place] 48 degrees MUSE SYSTEM Calculated R [place] -33 degrees MUSE SYSTEM Calculated T [place] 98 degrees MUSE SYSTEM INTERPRETATION Normal [...] Suspected): Skin/Skin Structure 180 (Stopped - Provider: mE richter RN) furosemide (LASIX) tablet 20 mg [...] Jones RN) 1400 (Dose confirmed - Provider: yMrna Young RN - Comment: on DC) Oral, [...]
Routine documented in this encounter Care Teams Wind Farm Electrical Systems Designer Relationship Specialty Start Date End Date Lovely Vicente MD PCP - General 04/16/[address] [place] [address] [address] [place] [address] documented as of this encounter
--- OUTSIDE RECORDS SUMMARY | 2022-05-15 08:29 | XMS_ITS | Encounter Summary ---
:1945 [place] [address] Care Team Providers Name Role Phone Lovely Vicente MD Primary Care Provider Reason for Visit Auth/Cert Specialty Diagnoses / Procedures Referred By Contact Refer red To Contact Diagnoses STEMI (ST elevation myocardial infarction) NSTEMI STEMI Procedures CARDIAC CATHETERIZATION NAYE IPI Referral ID Status Reason Start Date Expiration Date Visits Requ ested Visits Authorized [id number] 1 1 Encounter Details Date Type Department Care Team Description 07/07/2017 Anesthesia Event Main Operating Room Yifan Jaime MD [facility] DR [place]ESI[place] [address] [facility] Ginny Murray MD [facility] DR ANESTHESIOLOGY [place] [address] [facility] [place] [address] Anesthesia Record Procedure Summary Procedure Name [...] Maza, Angela Mccurdy, left; 18 gauge; removed RUBY ON RAILS CONSULTANT per policy/procedure; 07/11/17; 2355 Intra-Aortic Balloon 07/05/17; [...] Miller, Carrie L, Type: Cuffed; ETT Size: INVESTMENT PROFESSIONAL 8 mm; Santiago Blade: 2; Notes: Asleep, [...] by 7 0945 by vein, right internal; iGnny Murray MD Nunes, Kathleen D, VIP; 8 [...] Murray MD - 07/08/2017 5:08 PM EST [facility] Department of Anesthesiology Post-procedure Note Patient: Don Fatima Procedure Summary Date Anesthesia Start Anesthesia Stop Room / Location 07/07/17 1335 1836 [facility] OR [facility] MAIN OR Procedure Diagnosis Surgeon Responsible Provider @CABG, USING ARTERIAL GRAFT;SINGLE ARTERIAL GRAFT (WRVU 33.75) (N/A Chest); @CABG, TWO VENOUS GRAFTS & ARTERIAL GRAFT (WRVU 7.93) (N/A Chest); ENDOSCOPIC HARVEST VEIN(S) FOR CABG (WRVU 0.31) (Right Leg) (CAD) Yuan Freitas MD [place], Gregg S, MD All Anesthesia Providers: Anesthesiologist: Yifan Perez MD Social Media Sr Strategy Manager: Ginny Murray MD Most Recent Vitals: [...] Zulma Dolan MD [facility] [place], [place] [address] (Wo rk) 05/28/2022 Laboratory Appointment Lab 05/28/2022 Office Visit Cardiology Zulma Dolan MD [facility] [place] [address] Liz Poole PA [facility] [place] [address] 06/10/2022 Office Visit Dermatology Laura Scherer MD [facility] DR TEJA GR-DERMAT OLOG[place], [place] [address] (Wo rk) documented as of [...] mg documented in this encounter Care Teams Pottery Machine Operator Relationship Specialty Start Date End Date Lovely Vicente MD PCP - General 04/16/[address] [place] [address] documented as of this encounter
--- OUTSIDE RECORDS SUMMARY | 2022-05-15 08:31 | XMS_ITS | Encounter Summary ---
:1945 Author Organization [facility] [place] [address] Care Team Providers Name Role Phone Angela Holliday APRN Primary Care Provider Reason for Visit Reason Comments Skin Check Encounter Details Date Type Department Care Team Description 07/31/2013 Follow-Up Dermatology at Rigoberto Forman eoplasm of unspecified nature of bone, soft tissue, and skin (Primary Dx); Abdelrahman HOOPER MD Seborrheic psoriasis- scalp and ingtergl uteal area; [address] [facility] Atypical [place] [address] [facility]-DER[facility] [place], [place] [address] (Wo rk) Social History Tobacco [...] [facility] [address] [place] [address] (Wo lissa) 05/28/2022 Laboratory Appointment Lab 05/28/2022 Office Visit Cardiology Zulma Dolan [place] [facility] [place] [address] Liz Poole PA [facility] [place] [address] 06/10/2022 Office Visit Dermatology Laura Scherer MD [facility] DR TEJA GR-DERMAT [place], [place] [address] (Wo rk) Scheduled Orders Name [...] Time Signature Surgical CERNER Pathology ? [facility] Report ? Provider: ?? RIGOBERTO ALABRRAN III Pt. Name: ?? GREGORY HOANG ?A ? Acc #: ?[id number] ? Pt. ? Col Date: ?? 07/31/2013 [...] negative controls. ??These ? IHC studies provide [facility] pathologist with adjunctive diagnostic information. ? [...] DEION III, RIGOBERTO Pt. Name: ?? GREGORY OHANG ?A ? Acc #: ?[id number] ? Pt. ? Col Date: ?? 07/31/2013 [...] City/[facility]/ZIP Code Phon e Number [address] CERNER MILLENNIUM Specimen to [...] City/[facility]/[place] [address] CERNER MILLENNIUM documented in this encounter Visit Diagnoses Diagnosis Neoplasm of unspecified nature of bone, soft tissue, and skin - Primary Seborrheic psoriasis- scalp and ingtergl uteal area Other psoriasis Atypical nevus of abdominal wall Benign neoplasm of skin of trunk, except scrotum documented in this encounter Care Teams Investor Relations Manager Relationship Specialty Start Date End Date Angela Holliday APRN PCP - General 01/25/13 04/15/[address] [place] [address] documented as of this encounter
--- OUTSIDE RECORDS SUMMARY | 2022-05-15 08:31 | XMS_ITS | Encounter Summary ---
:1945 Author Organization [facility] [place] [address] Care Team Providers Name Role Phone Lovely Vicente MD Primary Care Provider Reason for Visit Reason Comments Nevus excision dysplastic nevus mi d upper abdomen Encounter Details Date Type Department Care Team Description 12/03/2016 Procedure visit Dermatology at Halima Dubois Dysplastic nevus of Road MD Adrián trunk [address] [facility] [address] [facility] [phone] RD-DERMATOLGY [place] [address] Social History Tobacco Use Types Packs/Day Years [...] Halima Cordero MD during the day at [phone] Nurse: Mira [phone] Amy After 5 PM and on weekends, please call the hospital number , and ask for the Boat Builder And Repairer it web development consultant. documented in this encounter Progress Notes Halima Cordero MD - 12/10/2016 5:41 PM EDT Gwendolyn, Excision shows scar, there is no residual of the severely dysplastic nevus. Please notify patient and check on wound healing. Thank you, DTB Halima Cordero MD - 12/03/2016 3:00 PM EDT Images from the original note were not included. Dermatology Procedure note: Attending: Halima Cordero MD Process Manufacturing Engineer: Mira James LPN Referring MD: Rigoberto [...] to call the clinic or the on-call haul truck driver over the weekend. ??? Name of Procedure? [...] Dolan MD [facility] [place], [place] [address] (Wo rk) 05/28/2022 Laboratory Appointment Lab 05/28/2022 Office Visit Cardiology Zulma Dolan [place] [facility] [address] Liz Poole PA [facility] [place] [address] 06/10/2022 Office Visit Dermatology Laura Scherer MD [facility] DR TEJA GR-DERMAT OLOGY [place], [place] [address] (Wo rk) documented as of [...] Component Value Ref Test Analysis Performed At [facility] Method Time Signature Surgical [id number] ?Location: [facility] The signing pathologist [...] previous operative site Electronically signed by: ??Alexandru aZmbrano MD Verified: ??12/07/2016 ?Dermatopathologist, Bone & Soft Tissue Pathologist CLINICAL INFORMATION Specimen Submitted: A - Skin, Mid upper adomen, Excision, (1) Clinical History: 0.6 x 0.4 healing biopsy site Clinical Diagnosis: Dysplastic nevus, see previous pathology [id number] SPECIMEN PROCESSING A - Labeled/Fixative: Mid-upper abdomen, [...] Address City/State/[place] [address] Specimen to Pathology (NON-OR) [...] Address City/State/[place] [address] documented in this encounter Visit Diagnoses Diagnosis Dysplastic nevus of trunk Benign neoplasm of skin of trunk, except scrotum documented in this encounter Care Teams Hand Tube Winder Relationship Specialty Start Date End Date Lovely Vicente MD PCP - General 04/16/15 [address] [place] [address] documented as of this encounter
--- OUTSIDE RECORDS SUMMARY | 2022-05-15 08:31 | XMS_ITS | Encounter Summary ---
:1945 Author Organization [facility] [place] [address] Care Team Providers Name Role Phone Miya Angela STACIE Primary Care Provider Encounter Details Date Type Department Care Team Description 04/24/2013 Telephone Urology at [facility] Zhen Bowman MD [facility] [place] [address] UROLOGY DEPT [phone] [place], [place] [address] (Wo rk) Social History [...] Zulma Dolan MD [facility] [place], [place] [address] (Wo rk) 05/28/2022 Laboratory Appointment Lab 05/28/2022 Office Visit Cardiology Zulma Dolan MD [facility] [place] [address] Lzi Poole PA [facility] [place] [address] 06/10/2022 Office Visit Dermatology Laura Scherer MD [facility] DR TEJA GR-DERMAT [place], [place] [address] (Wo rk) documented as of this encounter Visit Diagnoses Not on filedocumented in this encounter Care Teams Strategy Execution Consultant Relationship Specialty Start Date End Date Angela Holliday APRN PCP - General 01/25/13 04/15/[address] [place] [address] documented as of this encounter
--- OUTSIDE RECORDS SUMMARY | 2022-05-15 08:31 | XMS_ITS | Encounter Summary ---
:1945 Author Organization [facility] [place] [address] Care Team Providers Name Role Phone Angela Holliday APRN Primary Care Provider Encounter Details Date Type Department Care Team Description 04/30/2014 Orders Only Endocrinology at [facility] Albertina Palmer, Thyroid cancer [facility] Jorge Boyer MD (Primary Dx) [place] [address] [facility] [phone] CENTER ENDOCRINOLOGY DEPT [place], [place] [address] Social History Tobacco Use Types [...] MD [facility] er Dr [place], [place] [address] (Wo rk) 05/28/2022 Laboratory Appointment Lab 05/28/2022 Office Visit Cardiology Zulma Dolan MD [facility] [place] [address] Liz Poole PA [facility] [place] [address] 06/10/2022 Office Visit Dermatology Laura Scherer MD [facility] ER DR TEJA GR-DERMAT [place], [place] [address] (Wo rk) documented as of this encounter Visit Diagnoses Diagnosis Thyroid cancer - Primary Malignant neoplasm of thyroid gland documented in this encounter Care Teams Flooring Salesperson Relationship Specialty Start Date End Date Angela Holliday APRN PCP - General 01/25/13 04/15/[address] [place] [address] documented as of this encounter
--- OUTSIDE RECORDS SUMMARY | 2022-05-15 08:31 | XMS_ITS | Encounter Summary ---
:1945 Author Organization [facility] [place] [address] Care Team Providers Name Role Phone Lovely Vicente MD Primary Care Provider Reason for Visit Reason Onset Date Comments Pre Procedure Call 12/02/2016 Encounter Details Date Type Department Care Team Description 12/02/2016 Telephone Dermatology at [facility] Mira James LPN Pre Procedure Call [address] [place] [address] Social History Tobacco Use Types Packs/Day [...] Zulma Dolan MD [facility] [place], [place] [address] (Wo lissa) 05/28/2022 Laboratory Appointment Lab 05/28/2022 Office Visit Cardiology Zulma Dolan MD [facility] [place] [address] Liz Poole PA [facility] [place] [address] 06/10/2022 Office Visit Dermatology Laura Scherer MD [facility] DR TEJA GR-DERMAT OLOGY [place], [place] [address] (Wo rk) documented as of this encounter Visit Diagnoses Not on filedocumented in this encounter Care Teams Professional Volleyball Player Relationship Specialty Start Date End Date Lovely Vicente MD PCP - General 04/16/[address] [place] [address] documented as of this encounter
--- OUTSIDE RECORDS SUMMARY | 2022-05-15 08:31 | XMS_ITS | Encounter Summary ---
:1945 Author Organization [facility] [place] [address] Care Team Providers Name Role Phone Angela Holliday APRN Primary Care Provider Encounter Details Date Type Department Care Team Description 04/05/2013 Office Visit Urology at [facility] [place] [address] Social History Tobacco Use Types Packs/Day Years Used Date Former Smoker Alcohol Use Standard Drinks/Week Comments No 0 (1 standard drink = 0.6 oz pure alcoho l) Sex Assigned at Date Recorded Not on file documented as of this encounter Plan of Treatment Upcoming Encounters Date Type Specialty Care Team Description 05/28/2022 Appointment Cardiology Zulma Dolan MD [facility] [address] [place], [place] [address] (Wo rk) 05/28/2022 Laboratory Appointment Lab 05/28/2022 Office Visit Cardiology Zulma Dolan MD [facility] [place] [address] Liz Poole PA [facility] [place] [address] 06/10/2022 Office Visit Dermatology Laura Scherer MD [facility] [address] [place], [place] [address] (Wo rk) documented as of this encounter Visit Diagnoses Not on filedocumented in this encounter Care Teams Dance Entertainer Relationship Specialty Start Date End Date Angela Holliday APRN PCP - General 01/25/13 04/15/[address] [place] [address] documented as of this encounter
--- OUTSIDE RECORDS SUMMARY | 2022-05-15 08:31 | XMS_ITS | Encounter Summary ---
:1945 Author Organization [facility] [place] [address] Care Team Providers Name Role Phone Lovely Vicente MD Primary Care Provider Reason for Visit Reason Onset Date Comments Referral 10/30/2015 Urgent referral for mac on SIM[facility]N [place]AV[place] Encounter Details Date Type Department Care Team Description 10/30/2015 Telephone Ophthalmology at [facility] C Jayson Ruiz Referral (Urgent [facility] MD Grabiel referral for mac on [facility] [address] SIM[address]N [place]) [place] [address] OPHTHALMOLOGY DEPT. [phone] [place], [place] 0[address] (Wo rk) Social History Tobacco [...] Dolan MD [facility] [address] [place], [place] [address] (Wo rk) 05/28/2022 Laboratory Appointment Lab 05/28/2022 Office Visit Cardiology Zulma Dolan MD [facility] [place] [address] Liz Poole PA [facility] [place] [address] 06/10/2022 Office Visit Dermatology Laura Scherer MD [facility] DR TE[address]DERMAT [place], [place] [address] (Wo rk) documented as of this encounter Visit Diagnoses Not on filedocumented in this encounter Care Teams Oil Mixer Relationship Specialty Start Date End Date Lovely Vicente MD PCP - General 04/16/[address] [place], [place] [address] documented as of this encounter
--- OUTSIDE RECORDS SUMMARY | 2022-05-15 08:31 | XMS_ITS | Encounter Summary ---
:1945 Author Organization [facility] [place] [address] Care Team Providers Name Role Phone Lovely Vicente MD Primary Care Provider Reason for Visit Reason Comments Follow-up Encounter Details Date Type Department Care Team Description 06/03/2017 Office Visit Dermatology at [facility] benign nevi; Abdelrahman HOOPER MD History of melanoma; [address] [facility] History of dysplastic nevus; [place] [address] Skin exam for malignant neoplasm [phone] [facility] [place], [place] [address] Social History Tobacco Use [...] Zulma Dolan MD [facility] [place], [place] 0[address] (Wo rk) 05/28/2022 Laboratory Appointment Lab 05/28/2022 Office Visit Cardiology Zulma Dolan MD [facility] [place] [address] Liz Poole PA [facility] [place] [address] 06/10/2022 Office Visit Dermatology Laura Scherer MD [facility] DR [address]DERMAT [place], [place] 0[address] (Wo rk) documented as of [...] skin documented in this encounter Care Teams Lubrication Servicer Relationship Specialty Start Date End Date Lovely Vicente MD PCP - General 04/16/15 [facility] [address] [place] [address] documented as of this encounter
--- OUTSIDE RECORDS SUMMARY | 2022-05-15 08:31 | XMS_ITS | Encounter Summary ---
:1945 Author Organization [facility] [place] [address] Care Team Providers Name Role Phone MiyaLokeshAngela STACIE Primary Care Provider Encounter Details Date Type Department Care Team Description 01/16/2014 Hospital Encounter Gastroenterology at [facility] Nohemi Swann, [facility] [place] [address] [facility] [phone] [facility] [place], [place] [address] Social History Tobacco Use Types [...] you need to be checked. [facility] [phone] 8a-5p Same Day Endo [phone] 7a-8p Otherwise contact [phone] and ask to speak to the steward/stewardess second class extension service agent Follow up care is a shelton [...] documented as of this encounter H&P Notes Nhoemi Swann MD - 01/16/2014 8:53 AM EDT [...] MD - 01/16/2014 9:49 AM EDT [facility] Operative Note Patient Name: Gregory Fatima : [id number] MR#: [id number] Case Date: 01/16/2014 Surgeon: Surgeon(s) and Role: * Nohemi Swann MD - Primary Preoperative diagnosis: 5 yr surv. Full procedure note is documented under the Procedure section of eDH. documented in this encounter Plan of Treatment Upcoming Encounters Date Type Specialty Care Team Description 05/28/2022 Appointment Cardiology Zulma Dolan MD [facility] [address] [place], [place] [address] (Wo rk) 05/28/2022 Laboratory Appointment Lab 05/28/2022 Office Visit Cardiology Zulma Dolan MD [facility] [place] [address] Liz Poole PA [facility] [place] [address] 06/10/2022 Office Visit Dermatology Laura Scherer MD [facility] DR [address]MAT [place], [place] [address] (Wo rk) documented as of this encounter [...] Pathology Report (01/16/2014 9:53 AM EDT) [facility] Method Time Signature Surgical CERNER Pathology ? [facility] Report ? Provider: ?? NOHEMI SWANN ?Pt. Name: ?? MALICKEliseo RT, GREGORY E ? Acc #: ?[id number] ?Pt. MRN: ?[id number] ? Col Date: ?? 4 ? /Sex: [...] City/State/ZIP Code Phon e Number [place] [phone] RAKESH WALKER Specimen to [...] Organization Address City/State/[place] [address] [facility] Specimen to Pathology (surgical [...] MD PATHOLOGY/CYTOLOGY ORDERABLE S Performing Organization Address City/[facility]/[place] [address] CERNER MILLENNIUM COLONOSCOPY (01/16/2014 7:25 AM EDT) [facility] gist Method Time Signature COLONOSCOPY [facility] Endoscopy Patient Name: Gregory Fatima ? Procedure Date: 01/16/2014 7:25 AM ? N: [id number] ? Date of : 1945 ? Age: 68 ? Order #: [id number] ? Procedure: ? Colonoscopy Indications: ? High risk colon cancer surveillance : ? 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 dm on metformin with bs ~ 110 this ? am,s/p melanoma years ago, os a, ? goiter s/p surgery, [facility] Providers: ? Nohemi Swann MD, Blanca [...] Laterality 01/16/2014 7:25 AM EDT Angela Sotelo WHITE LEAD FILTERER GENERAL SURGICAL ORDERABLES Performing Organization Address City/State/ZIP [...] Routine documented in this encounter Care Teams Global Chief Experience Officer Relationship Specialty Start Date End Date Angela Sotelo APRN PCP - General 01/25/13 04/15/[address] [place] [address] documented as of this encounter
--- OUTSIDE RECORDS SUMMARY | 2022-05-15 08:31 | XMS_ITS | Encounter Summary ---
:1945 Author Organization [facility] [place] [address] Care Team Providers Name Role Phone Angela Holliday APRN Primary Care Provider Reason for Visit Reason Comments Benign Prostatic Hypertrophy Encounter Details Date Type Department Care Team Description 11/28/2013 Follow-Up [facility]rology at [facility] Blade Smith, Urinary retention (Primary D x); [facility] BPH (benign prostatic hyperplasia) [place] [address] UROLOGY DEPT [place], [place] 0[address] (Wo rk) Social History Tobacco [...] Zulma Dolan MD [facility] Dr [place], [place] [address] (Wo rk) 05/28/2022 Laboratory Appointment Lab 05/28/2022 Office Visit Cardiology Zulma Dolan MD [facility] [place] [address] Liz Poole PA [facility] [place] [address] 06/10/2022 Office Visit Dermatology Laura Scherer MD [facility] [address]MAT [place], [place] 0[address] (Wo rk) documented as of [...] Organization Address City/State/[place] [address] CERNER MILLENNIUM documented in this encounter Visit Diagnoses Diagnosis Urinary retention - Primary Retention of urine, unspecified BPH (benign prostatic hyperplasia) Unspecified hyperplasia of prostate with out urinary obstruction and other lower urinary tract symptoms (LUTS) documented in this encounter Care Teams Ivory Carver Relationship Specialty Start Date End Date Angela Holliday APRN PCP - General 01/25/13 04/15/[address] [place] [address] documented as of this encounter
--- OUTSIDE RECORDS SUMMARY | 2022-05-15 08:31 | XMS_ITS | Encounter Summary ---
:1945 Author Organization [facility] [place] [address] Care Team Providers Name Role Phone Lovely Vicente MD Primary Care Provider Encounter Details Date Type Department Care Team Description 09/03/2016 Laboratory Appointment Lab [place] [facility]x of [facility] [place] [address] Social History Tobacco Use Types Packs/Day Years [...] [facility] [address] [place] [address] (Wo rk) 05/28/2022 Laboratory Appointment Lab 05/28/2022 Office Visit Cardiology Zulma Dolan MD [facility] [place] [address] Liz Poole PA [facility] [place] [address] 06/10/2022 Office Visit Dermatology Laura Scherer MD [facility] ER DR TEJA GR-DERMAT [place], [place] [address] (Wo rk) documented as of [...] Signature Thyroglobulin <0.4 <=54.9 [facility] ng/mL [facility] Comment: Interpret with caution. Tg [...] than those obtained with T4 withdrawal protocol (Auburn BR et al. J Clin Endo Metab 1999;84:3070-5254). Assay performed using the DPC Immulite T [...] Address City/State/ZIP Code Phon e Number [address] TSH (09/03/2016 11:07 AM EST) P athologist Signature TSH 3.01 0.27 - 4.20 [facility] mcIU/mL [facility] Specimen Anatomical Collection Method Collection Time Receive d Time (Source) Location / / Volume Laterality Blood specimen 09/03/2016 11:07 7 (specimen) AM EST 11:22 AM EST Resulting Agency Comment Spec In Lab Luz Prescott MD CHEMISTRY ORDERABLES Performing Organization Address City/[facility]/ZIP [facility] [place] [address] documented in this encounter Visit Diagnoses Diagnosis Hx of papillary thyroid carcinoma Personal history of malignant neoplasm o f thyroid documented in this encounter Care Teams Cloth Worker Relationship Specialty Start Date End Date Lovely Vicente MD PCP - General 04/16/15 [address] [place] [address] documented as of this encounter
--- OUTSIDE RECORDS SUMMARY | 2022-05-15 08:31 | XMS_ITS | Encounter Summary ---
:1945 Author Organization [facility] [place] [address] Care Team Providers Name Role Phone MiyaAngela STACIE Primary Care Provider Encounter Details Date Type Department Care Team Description 11/27/2013 Orders Only Urology at [place] Blade Smith, Urinary retention [facility] (Primary Dx) [place] [address] UROLOGY DEPT [place], [place] 0[address] Social History Tobacco Use [...] [facility] er [place], [place] [address] (Wo rk) 05/28/2022 Laboratory Appointment Lab 05/28/2022 Office Visit Cardiology Zulma Dolan MD [facility] [place] [address] Liz Poole PA [facility] [place] [address] 06/10/2022 Office Visit Dermatology Laura Scherer MD [facility] ER DR TEJA GR-DERMAT [place], [place] [address] (Wo rk) documented as [...] Address City/State/[place] [address] CERNER MILLENNIUM documented in this encounter Visit Diagnoses Diagnosis Urinary retention - Primary Retention of urine, unspecified documented in this encounter Care Teams Or First Assist Registered Nurse Relationship Specialty Start Date End Date Angela Holliday APRN PCP - General 01/25/13 04/15/[address] [place] [address] documented as of this encounter
--- OUTSIDE RECORDS SUMMARY | 2022-05-15 08:31 | XMS_ITS | Encounter Summary ---
:1945 Author Organization [facility] [place] [address] Care Team Providers Name Role Phone MiyaLokeshAngela STACIE Primary Care Provider Reason for Visit Reason Onset Date Comments Post-op Problem 04/05/2013 voiding trial Encounter Details Date Type Department Care Team Description 04/05/2013 Telephone Urology at [facility] Blade Smith, Post-op Problem [facility] (voiding trial) [place] [address] UROLOGY DEPT [place] [id number] (Wo rk) Social History Tobacco Use Types [...] Cardiology Zulma Dolan MD [facility] [address] [place], [place] [address] (Wo rk) 05/28/2022 Laboratory Appointment Lab 05/28/2022 Office Visit Cardiology Zulma Dolan MD [facility] [place] [address] Liz Poole PA [facility] [place] [address] 06/10/2022 Office Visit Dermatology Laura Scherer MD [facility] DR [address] GR[address]DERMAT [place], [place] [address] (Wo rk) documented as of this encounter Visit Diagnoses Not on filedocumented in this encounter Care Teams Apprentice/Lineman Relationship Specialty Start Date End Date Angela Holliday APRN PCP - General 01/25/13 04/15/[address] [place] [address] documented as of this encounter
--- OUTSIDE RECORDS SUMMARY | 2022-05-15 08:31 | XMS_ITS | Encounter Summary ---
:1945 Author Organization [facility] [place] [address] Care Team Providers Name Role Phone Lovely Vicente MD Primary Care Provider Encounter Details Date Type Department Care Team Description 07/05/2017 Telephone Cardiology Kim Galindo MD [facility] [place] [address] CARDIOLOGY DEPT [phone] [place], [place] [address] (Wo rk) Social History Tobacco [...] 1:54pm Referring Provider: Ivania CROWELL) Patient Location: [facility] Presenting Symptoms per OSH: 72 year [...] infarct and elevated troponin, transport patient to [facility] for cath this afternoon and arrhythmia monitoring. Kim Galindo MD Lemon Grower documented in this encounter Plan of Treatment Upcoming Encounters Date Type Specialty Care Team Description 05/28/2022 Appointment Cardiology Zulma Dolan MD [facility] Dr [place], [place] [address] (Wo rk) 05/28/2022 Laboratory Appointment Lab 05/28/2022 Office Visit Cardiology Zulma Dolan MD [facility] [place] [place] [address] Liz Poole PA [facility] [place] [address] 06/10/2022 Office Visit Dermatology Laura Scherer MD [facility] DR [address]MAT [place], [place] [address] (Wo rk) documented as of this encounter Visit Diagnoses Not on filedocumented in this encounter Care Teams Tube Closing Machine Operator Relationship Specialty Start Date End Date Lovely Vicente MD PCP - General 04/16/[address] [place] [address] documented as of this encounter
--- OUTSIDE RECORDS SUMMARY | 2022-05-15 08:31 | XMS_ITS | Encounter Summary ---
:1945 Author Organization [facility] [place] [address] Care Team Providers Name Role Phone Lovely Vicente MD Primary Care Provider Reason for Visit Reason Onset Date Comments Medication Refill 12/24/2016 Encounter Details Date Type Department Care Team Description 12/24/2016 Refill Endocrinology at [facility] Luz Stallings MD [facility] [place] [address] ENDOCRINOLOGY DEPT [phone] [employer], [place] [address] (Wo rk) Social History Tobacco [...] [facility] er [address] [place] 0[address] (Wo rk) 05/28/2022 Laboratory Appointment Lab 05/28/2022 Office Visit Cardiology Zulma Dolan MD [facility] [place] [address] Liz Poole PA [facility] [place] [address] 06/10/2022 Office Visit Dermatology Laura Scherer MD [facility] DR TEJA RG-DERMAT [place], [place] [address] (Wo rk) documented as of this encounter Visit Diagnoses Not on filedocumented in this encounter Care Teams Automobile Tester Relationship Specialty Start Date End Date Lovely Vicente MD PCP - General 04/16/[address] [place], [place] [address] documented as of this encounter
--- OUTSIDE RECORDS SUMMARY | 2022-05-15 08:31 | XMS_ITS | Encounter Summary ---
:1945 Author Organization [facility] [place] [address] Care Team Providers Name Role Phone Lovely Vicente MD Primary Care Provider Reason for Visit Reason Comments Skin Lesion Encounter Details Date Type Department Care Team Description 11/24/2016 [facility] of uncertain behavior of skin; Road IIIMD Pigmented skin lesion of uncertain natur e; [address] [facility] [place] of [place] [address] [facility] SIMÓN-DERMATOLGY [place], [place] 0[address] Social History Tobacco Use Types [...] or concerns, please call the office at [phone]. If it is after 5PM, or a holiday or weekend, please call [phone] and ask for the Brands Editor on-call. documented in this encounter Progress Notes [...] 71 y.o. year old male.Established patient of [employer]. Last seen 06/05/16. Here today for [...] [facility] er [place] [address] (Wo rk) 05/28/2022 Laboratory Appointment Lab 05/28/2022 Office Visit Cardiology Zulma Dolan MD [facility] [place] [address] Liz Poole PA [facility] [place] [address] 06/10/2022 Office Visit Dermatology Laura Scherer MD [facility] ER [address]-DERMAT [place], [place] [address] (Wo rk) documented as of [...] Center gist Range Method Time Signature Surgical [id number] ?Location: [facility] Report The signing pathologist has (i) examined [...] Organization Address City/State/[place] [address] Specimen to Pathology (NON-OR) (11/24/2016 8:28 AM EDT) Specimen Anatomical Collection Method Collection Time Receive d Time (Source) Location / / Volume Laterality AP Specimen 11/24/2016 8:28 AM 7 9:29 EDT AM EDT Narrative [facility] ORY - 11/24/2016 9:29 AM EDT Specimen requisition ordered. ??Separate Pathology report to follow Resulting Agency Comment Spec In Lab Rigoberto Garcia III, MD PATHOLOGY/CYTOLOGY ORDERABLE S Performing Organization Address City/State/[place] [address] documented in this encounter Visit Diagnoses Diagnosis Neoplasm of uncertain behavior of skin Pigmented skin lesion of uncertain natur e History of melanoma Personal history of malignant melanoma o f skin documented in this encounter Care Teams Lens Cleaner Relationship Specialty Start Date End Date Lovely Vicente MD PCP - General 04/16/[address] [place] [address] documented as of this encounter
--- OUTSIDE RECORDS SUMMARY | 2022-05-15 08:31 | XMS_ITS | Encounter Summary ---
:1945 Author Organization [facility] [place] [address] Care Team Providers Name Role Phone Lovely Vicente MD Primary Care Provider Reason for Visit Reason Comments Thyroid Cancer Encounter Details Date Type Department Care Team Description 06/05/2015 Office Visit Endocrinology at [facility] Albertina Prescott, History of papillary [facility] MD Luz adenocarcinoma of [facility] thyroid (Primary Dx) [place] [address] CENTER [phone] [place] [address] Social History Tobacco Use Types Packs/Day Years [...] the thyroid gland were obtained using a Jiahe ultrasound machine. All measurements are given as AP x Transverse x Longitudinal Right Lobe: Absent Left Lobe: Absent Isthmus: Absent Central/Lateral neck: no morphologically abnormal lymph nodes. Impression: No sonographic evidence of recurrence. LUZ PRESCOTT MD Parts Department Supervisortone artist apprentice Section of Endocrinology [facility] Luz Prescott MD - 06/05/2015 8:21 AM [...] Strip by [facility].(Non-Drug; Combo Route) route 2 times daily. Yes [...] --f/u in 1 year LUZ PRESCOTT MD Parts Department Supervisortone artist apprentice Section of Endocrinology [facility] documented in this encounter Miscellaneous Notes Addendum [...] MD [facility] [address] [place], [place] [address] (Wo rk) 05/28/2022 Laboratory Appointment Lab 05/28/2022 Office Visit Cardiology Zulma Dolan MD [facility] [place] [address] Liz Poole PA [facility] [place] [address] 06/10/2022 Office Visit Dermatology Laura Scherer MD [facility] ER DR [address]-DERMAT [place], [place] [address] [...] not exclude recurrent or metastatic disease. (Javi ACEVEOD et al. AACE Clinical Practice Guidelines for the Management of Thyroid Carcinoma. Endocrine Practice 1997;3:60-71). Tg levels after rhTSH administration may be lower than those obtained with T4 withdrawal protocol ([place]on BR et al. J Clin Endo Metab 1999;84:2000-5818). 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
--- OUTSIDE RECORDS SUMMARY | 2022-05-15 08:31 | XMS_ITS | Encounter Summary ---
:1945 [place] [address] Care Team Providers Name Role Phone Lovely Vicente MD Primary Care Provider Reason for Visit Auth/Cert Specialty Diagnoses / Procedures Referred By Contact Refer red To Contact Diagnoses STEMI (ST elevation myocardial infarction) NSTEMI STEMI Procedures CARDIAC CATHETERIZATION NAYE IPI Referral ID Status Reason Start Date Expiration Date Visits Requ ested Visits Authorized [id number] 1 1 Encounter Details Date Type Department Care Team Description 07/05/2017 Surgery Scheduling Coordinator Jet Guan, CARDIAC CATHETERIZATION [facility] [place] [address] CARDIOLOGY DEPT. [phone] [place], [place] [address] (Wo rk) Social History Tobacco [...] this encounter Discharge Summaries Martha Teague S, TRUCK DRIVER TEAMSTER - 07/14/2017 9:38 AM EST Inpatient - Discharge Summary Patient Name: Gregory Hoang Patient Age: 72 y.o. Birthdate: 1945 Language: Moroccan Race: White Ethnicity: Not nor Admit Date: [...] , @ 1:20p Patient to follow-up with Tap Dancer/heart failure team in one week. An appointment will be made for you. You may call [phone] Patient to follow-up with Cardiac Surgery, Dr. Yuan Webber, in ~ 4 weeks with CXR, EKG. Inpatient Provider Contact Information: [facility] Section of Cardiac Surgery [facility] [place] [address] FAX [phone] Discharge Diagnoses (Hospital Problems) Primary Diagnoses: CAD [...] by mouth daily. 90 tablet 3 07/05/2017 [id number] ??? ascorbic acid, vitamin C, (VITAMIN C) [...] hospital and ruled infor non-ST segment elevation [place]. This almost certainly represents the residual of [...] course, he was taken emergently to the grass farm laborer for an ongoing STEMI. An IABP [...] not take or discontinue any prescription or cibv-ykn-kfaxfrs medications without asking your doctor or pharmacist [...] to have your insulin doses adjusted. [facility] Endocrine clinic office [...] Yuan Webber and/or the Cardiac Surgery Physician Lease Out Man Team may be reached at . Weight: [...] Dr. Yuan Webber. You may use a Wagram Track or treadmill but avoid any pulling [...] friends, go to a movie, go to sabianism, etc. Heavy activities: No hunting, skiing, jogging, snow shoveling, snowmobiling, lawn mowing, swimming, golf or tennis until after your return appointment with the surgeon. Do not ride motorcycles, [place] tractors or horses. Avoid the use of [...] should resume a low fat, low cholesterol, [place] Heart Association Diet/Diabetic diet. Driving: No driving [...] , @ 1:20p Patient to follow-up with Tap Dancer/heart failure team in one week. Appointment will be made for you. You may call [phone] Patient to follow-up with Cardiac Surgery, Dr. Yuan Webber, in ~ 4 weeks with CXR, EKG. Cardiac Rehabilitation: Gregory Hoang was seen today regarding participation in the outpatient Phase 2 Cardiac Rehabilitation at [facility]. The patient agrees to a referral to this program. The referral will be sent at discharge and the patient should be contacted by the Program within 1- 2 weeks from discharge. ?? Future Appointments and Orders Future Appointments Provider Department Dept Phone 09/07/2017 3:00 PM LAB, THREE L Lab 3L [facility] [phone] 09/07/2017 4:00 PM Luz rPescott MD Endocrinology at [facility] [phone] Future Orders Complete By Expires EKG 12 Lead [EKG1 Custom] 08/14/2017 02/13/2018 Process Instructions: Scheduling Instructions: Questions: Which DH location will this be performed?: [facility] Is a rhythm strip needed?: No If EKG Reason is Pre-op Evaluation, indicate diagnosis for surgery.: XR Chest PA & Lateral (Generic) [[id number] Custom] 08/14/2017 02/13/2018 Process Instructions: Scheduling Instructions: Questions: Where will study be performed?: [facility] Portable exam?: Reason for exam and clinical history: CABG x 3 Other pertinent information: Stat read required?: Date of injury if applicable: Requested Time: Referral to Cardiac Rehab [PBB760 Custom] As directed Process Instructions: If no progress note charted, please enter Clinical details in comments. Scheduling Instructions: Questions: My question or request is: s/p CABG. Cardiac rehab at [facility] Referral to Home Health - at DISCHARGE [NUZ8000 CPT(R)] As directed Process Instructions: Scheduling Instructions: Comments: DOCUMENTATION FOR VNA SERVICES (INCLUDING THOSE PATIENTS WITH MEDICARE COVERAGE REQUIRING HOME VNA SERVICES AND/OR HOSPICE SERVICES) PATIENT'S LOCATION: Gregory Hoang [address] [place] [address] [place] [address] (home) Telephone Information: Supervisor Mixing's Name: self In discussion with the attending physician, it is certified that this patient is under their care and that they, or a Nurse Practitioner, or Physician Lease Out Man who is working directly with them, had [...] [facility] ([facility] [place] [facility] in [place]) PHONE: [phone] FAX: [phone] RN orders: Cardiopulmonary assessment, incisional assessment, assess vital signs, assessment of rehab progress, medication management and effectiveness, home safety evaluation. Please draw INR if indicated and send result to:Dr Vicente [phone] PT ORDERS: Continue rehab for endurance, gait stability and strength with mobility and transfers. Home safety evaluation. Home exercise program if appropriate. Start of Care Date:24-48 hours after discharge SPECIAL INSTRUCTIONS: For any follow up questions, needs, or issues please call the Cardiac Surgery Office at [phone] FOR MEDICARE ONLY: (please delete this section [...] [facility] [address] FAX [phone] Date: 07/14/2017 CC: MD Ivania Cr Betsy, PA [address] [place] [phone] documented in this encounter Discharge Instructions Discharge [...] to have your insulin doses adjusted. [facility] Endocrine clinic office [...] not take or discontinue any prescription or vmab-eor-ldotfmg medications without asking your doctor or pharmacist [...] to have your insulin doses adjusted. [facility] Endocrine clinic office [...] Yuan Webber and/or the Cardiac Surgery Physician Lease Out Man Team may be reached at . ?? [...] Dr. Yuan Webber. You may use a Wagram Track or treadmill but avoid any pulling [...] friends, go to a movie, go to sabianism, etc. ?? Heavy activities: No hunting, skiing, jogging, snow shoveling, snowmobiling, lawn mowing, swimming, golf or tennis until after your return appointment with the surgeon. Do not ride motorcycles, [employer]'s tractors or horses. Avoid the use of [...] should resume a low fat, low cholesterol, [place] Heart Association Diet/Diabetic diet. ?? Driving: No [...] @ 1:20p ?? Patient to follow-up with Tap Dancer/heart failure team in one week. An appointment has been made for you, you can call [phone] ?? Patient to follow-up with Cardiac Surgery, Dr. Yuan Webber, in ~ 4 weeks with CXR, EKG. ? Cardiac Rehabilitation: Gregory Hoang??was seen today regarding participation in the outpatient Phase 2 Cardiac Rehabilitation at [facility]. ?? The patient agrees to a referral to this program.? The referral will be sent at discharge and the patient should be contacted by the Program within 1- 2 weeks from discharge. ? Future Appointments and Orders Future Appointments Provider Department Dept Phone ?? 09/07/2017 3:00 PM LAB, THREE L Lab 3L [facility] [phone] ?? 09/07/2017 4:00 PM Luz Prescott MD [facility]ocrinology at [facility] [phone] Future Orders Complete By Expires ?? EKG 12 Lead [EKG1 Custom] 08/14/2017 02/13/2018 ?? Process Instructions: ? Scheduling Instructions: ? Questions: ? Which location will this be performed?: [facility] ?? Is a rhythm strip needed?: No ?? If EKG Reason is Pre-op Evaluation, indicate diagnosis for surgery.: ?? XR Chest PA & Lateral (Generic) [[id number] Custom] 08/14/2017 02/13/2018 ?? Process Instructions: ? Scheduling Instructions: ? Questions: ? Where will study be performed?: [facility] ?? Portable exam?: ?? Reason for exam and clinical history: CABG x 3 ?? Other pertinent information: ?? Stat read required?: ?? Date of injury if applicable: ?? Requested Time: ?? Referral to Cardiac Rehab [[id number] Custom] As directed ? Process Instructions: ?? If no progress note charted, please enter Clinical details in comments. ?? Scheduling Instructions: ? Questions: ? My question or request is: s/p CABG. Cardiac rehab at [facility] ? 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 A letter describing our affiliations was reviewed with them and theywere educated about their right to choose where referrals are placed. Patient requests referral to [facility]. PHONE: [phone] FAX: [phone] Expected date of discharge: 07/14 Referral routed to the Veneer Drier Tailer for matching with agency/vendor and to provide [...] to have your insulin doses adjusted. [facility] Endocrine clinic office Kathie Carrera APRN [facility] Endocrinology Diabetes Management Pager [phone] minutes of this 35 minute visit was spent with the patient in counseling on diabetes and treatment plan, reviewing all glucose and insulin data as well as relevant laboratory results with the patient, and coordination of care on the inpatient unit including nursing and primary team. 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 A letter describing our affiliations was reviewed with them and theywere educated about their right to choose where referrals are placed. Patient requests referral to : Yasmani [facility] ([facility] [place] [facility] in [place]) PHONE: [phone] FAX: [phone]. Expected date of discharge: 07/14/17 Referral routed to the Veneer Drier Tailer for matching with agency/vendor and to provide [...] hours. If BG remains greater than 240, [id number] units (no more than three times) &??call [...] continue to follow Katerin Azul APRN [facility] Endocrinology Diabetes Management Pager [phone] minutes of this 25 minute visit [...] of infiltration/extravasation Discussed plan of care with [facility] and RN. Elevate exrtemity and apply intermittent Warm compresses. Name of MD contacted Dr. Shaw Brown 07/13/2017 @ 0655 Name of RN contacted Ale Rangel RN Name of Pharmacist if consulted NA Name of Plastics MD ( if consulted) NA (Mandatory photo for infiltrations/ extravasations scoring a stage 2 or greater, but recommended forstage 1)( include measuring tape and identifier in the photo) METER SHOP SUPERINTENDENT CARING FOR THIS PATIENT WILL CONTINUE TO [...] measuring tape and identifier in the photo) METER SHOP SUPERINTENDENT CARING FOR THIS PATIENT WILL CONTINUE TO [...] regard to both infiltrates addressed by this appeals writer.All of Mr. Hoang's responses were entirely appropriate. Images of infiltrates attached here. Martha Sharp APRN - 07/13/2017 8:01 AM EST Cardiac Surgery Progress Note: ID: [id number] 72 year old male POD#6 s/p CABGx3 [...] discharge. ?? I have met with the patient/petroleum products sales representative to discuss discharge planning needs. I have provided the [facility], Office of Care Management letter from the Rail Director pertaining to rehab referrals. I have also provided a letter describing our affiliations within the [facility] and educated them about their right to choose where referrals are placed. ?? I reviewed the different levels of rehab including SNF, swing, acute and LTAC with the patient/petroleum products sales representative. ?? The patient/petroleum products sales representative has been provided a list of facilities within their preferred geographic area. ?? I have requested that the patient/petroleum products sales representative provide at least three choices for referral. ?? The patient/petroleum products sales representative have requested referrals to: ?? 1. . ?? 2. [facility] ?? 3. More to be entered ?? Expected date of discharge: 07/14 Note routed to Veneer Drier Tailer who will communicate referrals to facilities and [...] hours. If BG remains greater than 240, ftebwp06 units (no more than three times) & [...] hours. If BG remains greater than 240, akjqbm59 units (no more than three times) & call for new basal insulin orders. ??If less than 240 after two hours, give no insulin and resume prior schedule. Will continue to follow Katerin Azul APRN [facility] Endocrinology Diabetes Management Pager [phone] 20 minutes of this 35 minute visit was spent with the patient in counseling on diabetes and treatment plan, reviewing all glucose and insulin data as well as relevant laboratory results with the patient, and coordination of care on the inpatient unit including nursing and primary team. Makayla Stevenson APRN - 07/12/2017 9:52 AM EST Cardiac Surgery Progress Note: ID: [id number] 72 year old male POD#5 s/p CABGx3 [...] 7:18 PM EST Patient arrived from [facility]. VSS. MSI dressing pulled off with [...] hours. If BG remains greater than 240, naklaq16 units (no more than three times) & [...] AM EST Cardiac Surgery Progress Note: ID: [id number] 72 year old male POD#4 s/p CABGx3 [...] hours. If BG remains greater than 240, czcjgy12 units (no more than three times) & [...] them as documented. MARCK DIAMOND MD Samy Mladonado MD - 07/10/2017 9:37 AM EST Cardiac Surgery Progress Note: ID: [id number] 72 year old male POD#3 s/p CABGx3 [...] Gas) No results found for: PHART, PO2ART, BCA0ZXI Assessment/Plan: 72 year old male POD#3 s/p [...] Mami Thao - 07/09/2017 6:29 PM EST Coupon Collection Clerk Encounter Note Patient Name: Gregory Hoang : [id number] MR#: [id number] Admit Date: 07/05/2017 4:20 PM Hospital Day 4 days Narrative: Patient was sitting in chair, hugging heart pillow, opened his eyes, nodding to come into room Assessment: Patient was sleepy. Intervention and Outcome: Introduced clay preparation supervisor services and patient reached his hand out in appreciation. Follow-up: Coupon Collection Clerk remains available for support. Time in Direct [...] AM EST Cardiac Surgery Progress Note: ID: [id number] 72 year old male POD#2 s/p CABGx3 [...] when IABP d/c'ed. Gretchen Carolina, PT Pager [phone] Maddison Cee PA - 07/08/2017 11:27 AM EST Cardiac Surgery Progress Note: ID: [id number] 72 year old male POD#1 s/p CABGx3 [...] in place in R femoral. No hematoma. CLINICAL DOCUMENTATION SPECIALIST- Intact Psych- Anxious Skin- Dry, no [...] intact. IABP in place in R femoral. CLINICAL DOCUMENTATION SPECIALIST- Intact Psych- Anxious Skin- Dry, no [...] the ostial segment of the ramus. Assessment: Gregroy Hoang is a 72 y.o. male w/ [...] note for details. DAPHNE SHAHID MD Pager [phone] ClarisaJet lynn MD - 07/05/2017 6:48 PM EST Preliminary Cardiac Catheterization Procedure Note: Procedure(s) performed: Left heart cath, IABP insertion Access: Right WEIGH BOSS-->8fr IABP A time-out was conducted prior [...] effect. Heparin gtt maintained. Pt transferred to grass farm laborer. documented in this encounter H&P Notes Daphne Shahid MD - 07/05/2017 6:08 PM EST CARDIOLOGY HISTORY & PHYSICAL EXAM Date of Admission: 07/05/2017 ( Hospital Day 0 days ) Responsible Attending: Daphne Shahid MD PCP: Lovely Vicente MD PCP#: [phone] Patient Active Problem List Diagnosis Code ??? [...] with heparin drip and transferred to [facility]. While there, continued sob, question of chest pain. Stat TTE showing WMA diffusely and EF around 20%. No significant valvular disease. Taken to the grass farm laborer urgently for ongoing STEMI. [facility] Labs: INR 1.0 WBC 5.88 Hgb [...] monitor I/O - s/p lasix in the grass farm laborer, redose to aim net neg 1L [...] Medicine, PGY-2 Cardiology S1, Team Pager # [phone] CARDIOLOGY ATTENDING NOTE Patient: Gregory Hoang Date [...] amenable for PCI. DAPHNE SHAHID MD Pager [phone] documented in this encounter Miscellaneous Notes Consult Note - Daphne Shahid MD - 07/14/2017 11:46 AM EST Heart Failure Service Inpatient Consult Note Gregory Hoang Date of : 1945 Age: 72 y.o. Today's date: 07/14/17 PCP: Lovely Vicente MD PAPER SHEETER: None Place of Service: [facility] Reason for Consult: Dr. [...] following studies: EKG 07/14/17: NSR 75 bpm, FUSELAGE FRAMER anterior infarct, LAD CXR 07/11/17: FINDINGS: Sternotomy wires. The patient has been extubated, left chest tube removed, and Grover-Suzi catheter removed since the 07/07/2017 study. Atelectasis [...] was discussed with Kono. Jaden Kelley MD Gasket Former Pager [phone] CARDIOLOGY ATTENDING NOTE Patient: Gregory Hoang Date [...] heart failure clinic. DAPHNE SHAHID MD Pager [phone] Plan of Care - Alden Chavarria PTA [...] home with assist Alden Chavarria PTA Pager: [phone] Inpatient Physical Therapy Problem: Acute Rehab Services [...] sit/sit to supine -- Bed Mobility Goal, [place] Level supervision required -- Bed Mobility Goal, [...] - 3 days -- Gait Training Goal, [place] Level supervision required -- Gait Training Goal, [...] days -- Transfer Training Goal, Activity Type yfh-ps-poqjl/xpnes-je-ymj;yix-uq-kqqqh/mcxlg-pk-rja;toilet -- Transfer Train Goal, [place] Level supervision required -- Transfer Training Goal, [...] keeping present for 2 days per family. Hadoop Analyst noted of frustrations, house keeping sent to room. Patient offered showered twice, refused. at bedside, frustrated that shower not complete, informed that patient had refused several times. requesting to see CROP QUANTITATIVE GENETICIST, paged sent to Martha, will come to bedside (middle of consult). not willing to wait, Martha notified that family had gone home. Encouraged to come for morning rounds a t 8am. Diabetes team at bedside - insulin adjustments made. Call cabello in reach. Continue to monitor. PLAN MOVING FORWARD: Ambulate, dressing changes BID, Please change drsg at 4am per Martha CROP QUANTITATIVE GENETICIST request. INDIVIDUALIZED FALL PREVENTION INTERVENTIONS: Patient-specific fall [...] levels on the lower side, 60ml of Giles juice given after a FS of 80. [...] monitoring required during toileting and ADLs]: RN [facility] Surveillance [continuous indirect monitoring]: Barrett Monitor CPG [...] Anticipated Discharge Disposition: home with assist Pager: [phone] CLARISSA SEGAL, PT 07/12/2017 Physical Therapy Rehabilitation [...] to sit/sit to supine Bed Mobility Goal, [place] Level supervision required Bed Mobility Goal, Additional Goal adheres to psternal precautions for transfer Goal: Gait Training Goal Stand Alone Therapy Goal Outcome: Ongoing (Interventions Implemented as Appropriate) 07/12/17 1225 Gait Training Goal Gait Training Goal, Date Established 07/12/17 Gait Training Goal, Time to Achieve 2 - 3 days Gait Training Goal, [place] Level supervision required Gait Training Goal, Assist [...] 3 days Transfer Training Goal, Activity Type ltm-cp-bsbce/pccgg-su-aww;bsa-jk-laqpz/efgfh-kr-mqf;toilet Transfer Train Goal, [place] Level supervision required Transfer Training Goal, Additional Goal adheres to sternal precautions during transfer Consult Note - Octavia Vaughn RN - 07/12/2017 10:50 AM EST [facility] CARDIAC REHABILITATION Gregory Hoang was seen today regarding participation in the outpatient Phase 2 Cardiac Rehabilitation at [facility]. The patient agrees to a referral [...] IV site, amio to other piv and JAVA XML DEVELOPER at bedside to help assess, IV [...] staff, he stood and marched in place. [place] weak, wanting to sit back down. Remained [...] Health/Prescription Coverage: Primary Insurance: MEDICARE Secondary Insurance: [employer] [place] Prescription Coverage: yes Preferred Pharmacy: [facility] [place] Other: none Primary Care Provider: Lovely Vicente MD [phone] Patient/Caregiver Goals of Treatment:live and get my breath back Potential Needs for Transition of Care: Rehab/SNF: [facility] Home Health: NA DME: TBD Dialysis: na Community Resources: available Transportation: yes Other: none Anticipated Barriers to Discharge/Special Considerations: none Plan: Likely SNF Rehab before home A member of the Care Management team will continue to monitor progress, follow for continuity of care and assist with transition of care planning. ERLIN Weiss Pager: [phone] Consult Note - Katerin Azul RN - [...] patient W/E coverage, Dr. Jeane Tatum, pager [phone] Katerin Azul APRN Endocrinology Diabetes Management Pager [phone] Plan of Care - Stephanie Godoy RN [...] MD - 07/07/2017 6:27 PM EST [facility] Operative Note Patient Name: Gregory Hoang : [id number] MR#: [id number] Case Date: 07/07/2017 Surgeon: Surgeon(s) and Role: * Yuan Webber MD - Primary * Michael Drake PA - Physician Lease Out Man * Linda Flores PA - Physician Lease Out Man Preoperative diagnosis: 3VD Postoperative diagnosis: CAD, severe [...] Operative Note Patient Name: Gregory Hoang : [id number] MR#: [id number] Case Date: 07/07/2017 Surgeon: Surgeon(s) and Role: * Yuan Webber MD - Primary * Michael Drake PA - Physician Lease Out Man * Linda Flores PA - Physician Lease Out Man Preoperative diagnosis: 3VD Postoperative diagnosis: CAD, severe [...] (reference Cardiac: ACS (Acute Coronary Syndrome) (Adult) [facility]). 07/07/17621 Cardiac: ACS (Acute Coronary Syndrome) Problems [...] major CV events such as , stroke, [place], repeat revascularization compared to PCI). In this [...] Hahn, MS3 [employer] [facility] Cardiology S1 (Pager [phone]) Plan of Care - Emelia Ibarra RN [...] hospital and ruled infor non-ST segment elevation [place]. This almost certainly represents the residual of [...] at [facility] ENDOSCOPY ??? PRO THYROIDECTOMY 03/28/2013 THYROIDECTOMY, TOTAL OR COMPLETE performed by Manny Mcknight MD at [facility] MAIN OR Social History: Social [...] with other involved physicians Yuan Webber MD [phone] Med Student Progress Note - Katty Hahn [...] major CV events such as , stroke, [place], repeat revascularization compared to PCI). In this [...] or BiPAP - s/p lasix in the grass farm laborer, was net -1.5L - s/p plavix [...] insulin drip - hold metformin - f/u [facility] ?? #Home Meds - continue levothyroxine 175mcg - CPAP at night ?? # Routine - DVT PPx: heparin drip - Diet: Healthy heart diet, NPO at midnight for CABG tomorrow - Code Status: FULL - Dispo: CVCC Katty Hahn, M3 [facility] Cardiology S1 (Pager [phone]) Plan of Care - Stephanie Godoy RN - 07/06/2017 5:00 AM EST Problem: Patient Care Overview Goal: Plan of Care Review 07/06/17 3329 Coping/Psychosocial Plan Of Care Reviewed With patient;family [...] in urinal without difficulty. Lasix given in grass farm laborer, 1.4 L out at this time. [...] Dolan MD [facility] [place] [address] (Wo rk) 05/28/2022 Laboratory Appointment Lab 05/28/2022 Office Visit Cardiology Zulma Dolan MD [facility] [place] [address] Liz Poole PA [facility] [place] [address] 06/10/2022 Office Visit Dermatology Laura Scherer MD [facility] [address] [facility], [place] [address] (Wo rk) Scheduled Orders Name [...] procedure are i n the results section. TMD TEACHER SCAN 07/15/2017 12:00 Res ults for [...] 07/08/2017 4:00 Results f or this ([facility] [place] AM [place] procedure are i n the [...] 07/07/2017 5:15 Results f or this ([facility]) AM EST procedure [...] 07/06/2017 7:40 Results f or this ([facility]) PM EST procedure [...] 07/06/2017 2:10 Results f or this ([facility] [...] TYPE AND SCREEN Routine 07/06/2017 12:00 ([facility]/SHANDA) PM EST APTT [...] 07/06/2017 8:10 Results f or this ([facility]) AM EST procedure [...] 07/06/2017 2:20 Results f or this ([facility]) AM EST procedure [...] 07/05/2017 8:20 Results f or this ([facility]) PM EST procedure [...] 07/05/2017 4:55 Results f or this ([facility] [...] 2017 EXAMINATION: XR CHEST PA AND LATERAL ([employer]) CLINICAL HISTORY: CABG x 3 TECHNIQUE: PA [...] Teague APRN IMG DX ORDERABLES SCAN DOC: TMD TEACHER (07/15/2017 12:00 AM EST) Narrative 07/15/2017 [...] Signature POC Glucose 186 65 - 199 [facility] mg/dL [facility] [...] Organization Address City/State/[place] [address] POCT Glucose (07/14/2017 7:52 AM EST) athologist Signature POC Glucose 126 65 - 199 [facility] mg/dL [facility] Comment: [...] City/[facility]/[place] [address] (ABNORMAL) Prothrombin Time (07/14/2017 [...] Wilson APRN HEMATOLOGY ORDERABLES Performing Organization Address City/[facility] Code [facility] [place] [address] Potassium (07/14/2017 4:46 AM EST) athologist Signature Potassium 4.3 3.5 - 5.0 [facility] mmol/L [facility] Comment: Please note: ??Patients with [...] Address City/State/ZIP Code Phon e Number [address] POCT Glucose (07/14/2017 4:34 AM EST) athologist Signature POC Glucose 115 65 - 199 [place] mg/dL [facility] Comment: [...] City/[facility]/ZIP Code Phon e Number [address] POCT Glucose (07/13/2017 11:33 PM EST) athologist Signature POC Glucose 132 65 - 199 [place]HAORY[place] mg/dL [facility] Comment: Supplemental ranges: <140 mg/dL before meals <180 mg/dL all other times of the day Specimen Anatomical Collection Method Collection Time Receive d Time (Source) Location / / Volume Laterality Blood specimen 07/13/2017 11:33 7 (specimen) PM EST 11:33 PM EST uYan Webber MD POINT OF CARE TEST ORDERABLE S Performing Organization Address City/[facility]/ZIP Code Phon [place] [address] POCT Glucose (07/13/2017 9:25 PM EST) athologist Signature POC Glucose 121 65 - 199 [place] R[place] mg/dL [facility] Comment: [...] Address City/State/ZIP Code Phon e Number [address] POCT Glucose (07/13/2017 4:55 PM EST) athologist Signature POC Glucose 79 65 - 199 [facility] mg/dL [facility] Comment: [...] Address City/State/ZIP Code Phon e Number [address] POCT Glucose (07/13/2017 11:16 AM EST) athologist Signature POC Glucose 163 65 - 199 [facility] mg/dL [facility] Comment: [...] Address City/State/ZIP Code Phon e Number [address] POCT Glucose (07/13/2017 8:07 AM EST) athologist Signature POC Glucose 96 65 - 199 [place] RY[place] mg/dL [facility] Comment: [...] Address City/State/ZIP Code Phon e Number [address] (ABNORMAL) Prothrombin Time [...] Organization Address City/State/[place] [address] (ABNORMAL) Basic Metabolic Panel (non-fasting) (07/13/2017 4:26 AM EST) athologist Signature Glucose Lvl 95 65 - 199 [facility] mg/dL [facility] [...] [facility] Estimated GFR 60 >=60 [facility] Comment: The reported eGFR should be multiplied b y 1.2 for patients. The MDRD is not an appropriate measure o f renal function for patients with body mass extremes or in patients with acute kidney failure. [email or web address] [email or web address]/DHMCnkf Specimen Anatomical Collection Method Collection Time Receive d Time (Source) Location / / Volume Laterality Blood specimen 07/13/2017 4:26 AM 017 4:46 (specimen) EST AM EST Resulting Agency Comment Spec In Lab Makayla Wilson APRN CHEMISTRY ORDERABLES Performing Organization Address City/State/ZIP Code Phon e Number [address] POCT Glucose (07/13/2017 3:52 AM EST) athologist Signature POC Glucose 93 65 - 199 [facility] mg/dL [facility] Comment: [...] Address City/State/ZIP Code Phon e Number [address] POCT Glucose (07/13/2017 12:21 AM EST) athologist Signature POC Glucose 80 65 - 199 [facility] mg/dL [facility] Comment: [...] Address City/State/ZIP Code Phon e Number [address] POCT Glucose (07/12/2017 8:22 PM EST) athologist Signature POC Glucose 119 65 - 199 [place] ZHAORYAN mg/dL [facility] Comment: [...] City/[facility]/ZIP Code Phon e Number [address] POCT Glucose (07/12/2017 4:02 PM EST) athologist Signature POC Glucose 114 65 - 199 [place] RYAN mg/dL [facility] Comment: [...] Address City/State/ZIP Code Phon e Number [address] POCT Glucose (07/12/2017 11:28 AM EST) P athologist Signature POC Glucose 164 65 - 199 [place] ZHAORYAN mg/dL [facility] Comment: [...] Address City/State/ZIP Code Phon e Number [address] POCT Glucose (07/12/2017 7:34 AM EST) athologist Signature POC Glucose 109 65 - 199 [facility] mg/dL [facility] Comment: [...] Organization Address City/State/[place] [address] (ABNORMAL) Basic Metabolic Panel (non-fasting) (07/12/2017 4:11 AM EST) athologist Signature Glucose Lvl 92 65 - 199 [facility]/dL [facility] Comment: [...] or in patients with acute kidney failure. http://Mytopia/DHnkdep [email or web address]/DHMCnkf Specimen Anatomical Collection Method Collection Time Receive d Time (Source) Location / / Volume Laterality Blood specimen 07/12/2017 4:11 AM 017 8:57 (specimen) EST AM EST Resulting Agency Comment Spec In Lab Makayla [place] STACIE CHEMISTRY ORDERABLES Performing Organization Address [facility] [place] [address] (ABNORMAL) Prothrombin Time (07/12/2017 [...] [place] STACIE HEMATOLOGY ORDERABLES Performing Organization Address [facility] Phon e Number [address] Potassium (07/12/2017 4:11 AM EST) P athologist Signature Potassium 3.8 3.5 - 5.0 [facility] mmol/L [facility] Comment: Please note: ??Patients with [...] Wilson APRN CHEMISTRY ORDERABLES Performing Organization Address City/[facility]/ZIP [facility] Phon e Number [address] POCT Glucose (07/12/2017 4:10 AM EST) athologist Signature POC Glucose 90 65 - 199 [facility] mg/dL [facility] Comment: [...] City/[facility]/ZIP Code Phon e Number [address] POCT Glucose (07/11/2017 11:57 PM EST) athologist Signature POC Glucose 98 65 - 199 [facility] mg/dL [facility] Comment: [...] City/[facility]/ZIP Code Phon e Number [address] POCT Glucose (07/11/2017 8:32 PM EST) P athologist Signature POC Glucose 146 65 - 199 [place] DAV[place] mg/dL [facility] Comment: [...] Organization Address City/State/[place] [address] XR Chest PA & [...] e xtubated, left chest tube removed, and Grover-Suzi catheter removed since the study. Atelectasis at [...] e xtubated, left chest tube removed, and Grover-Suzi catheter removed since the study. Atelectasis at [...] 65 - 199 [place] mg/dL [facility] Comment: [...] City/[facility]/ZIP Code Phon e Number [address] POCT Glucose (07/11/2017 11:55 AM EST) athologist Signature POC Glucose 176 65 - 199 [place] RY[place] mg/dL [facility] Comment: [...] Organization Address City/State/[place] [address] POCT Glucose (07/11/2017 7:53 AM EST) athologist Signature POC Glucose 189 65 - 199 [place] RY[place] mg/dL [facility] Comment: [...] City/[facility]/ZIP Code Phon e Number [address] POCT Glucose (07/11/2017 4:22 AM EST) athologist Signature POC Glucose 151 65 - 199 [place] ZHAORYAN mg/dL [facility] Comment: Supplemental ranges: <140 mg/dL before meals <180 mg/dL all other times of the day Specimen Anatomical Collection Method Collection Time Receive d Time (Source) Location / / Volume Laterality Blood specimen 07/11/2017 4:22 AM 017 4:22 (specimen) EST AM EST Yuan Webber MD POINT OF CARE TEST ORDERABLE S Performing Organization Address [facility]/[place] [address] Potassium (07/11/2017 2:20 AM EST) athologist Signature Potassium 4.5 3.5 - 5.0 [facility] mmol/L [facility] Comment: Please note: ??Patients with [...] Webber MD CHEMISTRY ORDERABLES Performing Organization Address City/[facility]/ZIP Code Phon e Number [address] POCT Glucose (07/11/2017 12:17 AM EST) athologist Signature POC Glucose 162 65 - 199 [place] RY[place] mg/dL [facility] Comment: [...] Address City/State/ZIP Code Phon e Number [address] POCT Glucose (07/10/2017 8:47 PM EST) athologist Signature POC Glucose 191 65 - 199 [place] RY[place] mg/dL [facility] Comment: [...] Organization Address City/State/[place] [address] POCT Glucose (07/10/2017 4:06 PM EST) athologist Signature POC Glucose 131 65 - 199 [place] RY[place] mg/dL [facility] Comment: [...] Address City/State/ZIP Code Phon e Number [address] POCT Glucose (07/10/2017 3:08 PM EST) athologist Signature POC Glucose 151 65 - 199 [facility] R[facility] mg/dL [facility] Comment: [...] Address City/State/ZIP Code Phon e Number [address] POCT Glucose (07/10/2017 2:25 PM EST) athologist Signature POC Glucose 146 65 - 199 [place] ZHAORYAN mg/dL [facility] Comment: [...] Organization Address City/State/[place] [address] POCT Glucose (07/10/2017 1:23 PM EST) athologist Signature POC Glucose 166 65 - 199 [place] ZHAORYAN mg/dL [facility] Comment: [...] Organization Address City/State/[place] [address] POCT Glucose (07/10/2017 11:52 AM EST) athologist Signature POC Glucose 157 65 - 199 [facility] mg/dL [facility] Comment: [...] Address City/State/ZIP Code Phon e Number [address] POCT Glucose (07/10/2017 11:01 AM EST) P athologist Signature POC Glucose 158 65 - 199 [place] ZHAORYAN mg/dL [facility] Comment: [...] City/[facility]/ZIP Code Phon e Number [address] POCT Glucose (07/10/2017 9:54 AM EST) P athologist Signature POC Glucose 160 65 - 199 [place] RY[place] mg/dL [facility] Comment: [...] Address City/State/ZIP Code Phon e Number [address] POCT Glucose (07/10/2017 8:58 AM EST) P athologist Signature POC Glucose 183 65 - 199 [place] ZHAORYAN mg/dL [facility] Comment: [...] Address City/State/ZIP Code Phon e Number [address] POCT Glucose (07/10/2017 8:01 AM EST) P athologist Signature POC Glucose 173 65 - 199 [place] ZHAORYAN mg/dL [facility] Comment: [...] Address City/State/ZIP Code Phon e Number [address] POCT Glucose (07/10/2017 7:05 AM EST) athologist Signature POC Glucose 166 65 - 199 [place] ZHAORY[place] mg/dL [facility] Comment: [...] Organization Address City/State/[place] [address] POCT Glucose (07/10/2017 6:00 AM EST) athologist Signature POC Glucose 162 65 - 199 [place] RYAN mg/dL [facility] Comment: [...] City/State/ZIP Code Phon e Number [place] [id number] [facility] LABORATORY Drive (ABNORMAL) Differential, Automated (07/10/2017 4:28 AM EST) [facility] Method Time Signature Neutrophils % 87.9 % [facility] Neutr Abs (ANC) 10.70 (H) 1.70 - [facility] 6.10 [facility] x10(3)/[facility] LABORATORY Lymphocytes % 3.9 % [facility] Lymphocytes Abs 0.5 (L) 0.9 - 3.2 [facility] x10(3)/[facility] LABORATORY Monocytes % 7.0 % [facility] Monocyte Abs 0.8 0.3 - 0.9 [facility] x10(3)/[facility] LABORATORY Eosinophils % 0.3 % [facility] Eosinophils Abs 0.0 0.0 - 0.4 [facility] x10(3)/[facility] LABORATORY Basophils % 0.2 % [facility] Basophils Abs 0.0 0.0 - 0.1 [facility] x10(3)/[facility] LABORATORY Immature Gran % 0.70 % [facility] [...] Webber MD HEMATOLOGY ORDERABLES Performing Organization Address City/[facility]/[place] [address] (ABNORMAL) Hemogram (07/10/2017 4:28 AM EST) Analysis Performed At Patho logist Time Signature WBC 12.2 (H) 4.0 - 9.5 [facility] x10(3)/[facility] LABORATORY RBC 3.31 (L) 4.58 - [place] ZHAORY[place] 5.54 [facility] x10(6)/[facility] LABORATORY Hemoglobin 9.8 (L) 13.7 - [facility] 16.5 gm/dL [facility] Hematocrit 30.0 (L) 40.5 - [facility] 48.5 % [facility] MCV 90.6 82.9 - [facility] 93.1 [facility] LABORATORY MCH 29.6 27.5 - [facility] 32.1 pg [facility] MCHC 32.7 32.0 - [facility] 35.7 gm/dL [facility] Platelets 135 (L) 145 - 357 [facility] x10(3)/[facility] LABORATORY RDWSD 50.8 (H) 36.0 - [facility] 45.0 [facility] LABORATORY RDWCV 15.4 (H) 11.4 - [facility] 13.8 % [facility] MPV 10.0 7.6 - 12.9 [facility] LABORATORY nRBC % Auto 0.0 % [facility] nRBC Abs Auto 0.000 0.000 - [facility] 0.000 [facility] x10(3)/[facility] LABORATORY Specimen Anatomical Collection Method Collection Time Receive d Time (Source) Location / / Volume Laterality Blood specimen 07/10/2017 4:28 AM 017 4:36 (specimen) EST AM EST Resulting Agency Comment Spec In Lab Yuan Webber MD HEMATOLOGY ORDERABLES Performing Organization Address City/State/ZIP Code Phon e Number [address] (ABNORMAL) Basic Metabolic Panel (non-fasting) (07/10/2017 4:28 AM EST) P athologist Signature Glucose Lvl 178 65 - 199 [facility] mg/dL [facility]ORY [...] [facility] Estimated GFR 60 >=60 [facility] Comment: The reported eGFR should be multiplied b y 1.2 for patients. The MDRD is not an appropriate measure o f renal function for patients with body mass extremes or in patients with acute kidney failure. [email or web address] [email or web address]/DHMCnkf Specimen Anatomical Collection Method Collection Time Receive d Time (Source) Location / / Volume Laterality Blood specimen 07/10/2017 4:28 AM 017 4:36 (specimen) EST AM EST Resulting Agency Comment Spec In Lab Yuan Webber MD CHEMISTRY ORDERABLES Performing Organization Address City/State/[place] [address] POCT Glucose (07/10/2017 4:26 AM EST) P athologist Signature POC Glucose 176 65 - 199 [facility] mg/dL [facility]OR[facility]ORY [...] Address City/State/ZIP Code Phon e Number [address] (ABNORMAL) POCT Glucose (07/10/2017 3:06 AM EST) P athologist Signature POC Glucose 204 (H) 65 - 199 [facility] mg/dL [facility] Comment: [...] City/[facility]/[place] [address] (ABNORMAL) POCT Glucose (07/10/2017 2:10 AM EST) P athologist Signature POC Glucose 203 (H) 65 - 199 [facility] mg/dL [facility] Comment: [...] Address City/State/ZIP Code Phon e Number [address] POCT Glucose (07/10/2017 1:09 AM EST) P athologist Signature POC Glucose 196 65 - 199 [facility] mg/dL [facility] Comment: [...] Address City/State/ZIP Code Phon e Number [address] POCT Glucose (07/10/2017 12:10 AM EST) P athologist Signature POC Glucose 173 65 - 199 [place] ZHAORY[place] mg/dL [facility] Comment: [...] Organization Address City/State/[place] [address] POCT Glucose (07/09/2017 11:01 PM EST) P athologist Signature POC Glucose 140 65 - 199 [place] R[place] mg/dL [facility] Comment: [...] Organization Address City/State/[place] [address] POCT Glucose (07/09/2017 10:05 PM EST) P athologist Signature POC Glucose 144 65 - 199 [facility] mg/dL [facility] Comment: [...] Address City/State/ZIP Code Phon e Number [address] POCT Glucose (07/09/2017 9:31 PM EST) athologist Signature POC Glucose 121 65 - 199 [place] ZHAORY[place] mg/dL [facility] Comment: [...] City/[facility]/ZIP Code Phon e Number [address] POCT Glucose (07/09/2017 9:03 PM EST) athologist Signature POC Glucose 98 65 - 199 [place] mg/dL [facility] Comment: [...] City/[facility]/ZIP Code Phon e Number [address] POCT Glucose (07/09/2017 8:09 PM EST) athologist Signature POC Glucose 117 65 - 199 [place] RY[place] mg/dL [facility] Comment: [...] Address City/State/ZIP Code Phon e Number [address] POCT Glucose (07/09/2017 5:40 PM EST) athologist Signature POC Glucose 155 65 - 199 [place] H[place] mg/dL [facility] Comment: [...] Address City/State/ZIP Code Phon e Number [address] POCT Glucose (07/09/2017 4:24 PM EST) athologist Signature POC Glucose 164 65 - 199 [place] R[place] mg/dL [facility] Comment: [...] Address City/State/ZIP Code Phon e Number [address] POCT Glucose (07/09/2017 3:19 PM EST) athologist Signature POC Glucose 166 65 - 199 [facility] mg/dL [facility] Comment: [...] Organization Address City/State/[place] [address] POCT Glucose (07/09/2017 2:26 PM EST) athologist Signature POC Glucose 179 65 - 199 [place] ZHAORY[place] mg/dL [facility] Comment: [...] City/[facility]/[place] [address] (ABNORMAL) POCT Glucose (07/09/2017 1:29 PM EST) athologist Signature POC Glucose 210 (H) 65 - 199 [place] RY[place] mg/dL [facility] Comment: [...] City/[facility]/[place] [address] POCT Glucose (07/09/2017 12:20 PM EST) athologist Signature POC Glucose 172 65 - 199 [place] ZHAORY[place] mg/dL [facility] Comment: [...] Address City/State/ZIP Code Phon e Number [address] POCT Glucose (07/09/2017 11:24 AM EST) P athologist Signature POC Glucose 156 65 - 199 [place] mg/dL [facility] Comment: [...] Address City/State/ZIP Code Phon e Number [address] POCT Glucose (07/09/2017 11:11 AM EST) P athologist Signature POC Glucose 172 65 - 199 [place] mg/dL [facility] Comment: [...] Organization Address City/State/[place] [address] [facility] [address] POCT Glucose (07/09/2017 10:08 AM EST) P athologist Signature POC Glucose 176 65 - 199 [place] ZHAORYAN mg/dL [facility] Comment: [...] Organization Address City/State/ZIP Code [place] [address] POCT Glucose (07/09/2017 8:02 AM EST) P athologist Signature POC Glucose 178 65 - 199 [facility] mg/dL [facility] LABORATORY [...] Organization Address City/State/[place] [address] (ABNORMAL) BLOOD GAS 2 ARTERIAL (07/09/2017 5:37 AM EST) Analysis Performed At Patho logist Time Signature pH Art 7.36 7.35 - [facility] 7.45 [facility] LABOR[facility]ORY pCO2 Art 38 35 - 45 [facility] LABORATORY pO2 Art 79 (L) 85 - 104 [facility] LABORATORY HCO3 Art 20.9 20.0 - [facility] 26.0 [facility] mmol/L [facility] LABORATORY BE Art -4.6 (L) -3.0 - 3.0 [facility] mmol/L [facility] Hgb Blood Gas 10.5 (L) 13.7 - [facility] 16.5 gm/dL [facility] O2HB Art 93.8 (L) 94.0 - [facility] 97.0 % [facility] COHB Art 0.3 % [facility] FIO2 Art 40 % [facility] PF Ratio Art 198 [facility] LABORATORY Specimen Anatomical Collection Method Collection Time Receive d Time (Source) Location / / Volume Laterality Blood specimen 07/09/2017 5:37 AM 017 5:37 (specimen) EST AM EST Yuan Webber MD CHEMISTRY ORDERABLES Performing Organization Address City/[facility]/ZIP Code Phon e Number [place] [address] POCT Glucose (07/09/2017 3:27 AM EST) P athologist Signature POC Glucose 192 65 - 199 [facility] mg/dL [facility] LABORATORY [...] City/[facility]/[place] [address] (ABNORMAL) Basic Metabolic Panel (non-fasting) (07/09/2017 2:30 AM EST) P athologist Signature Glucose Lvl 179 65 - 199 [facility] mg/dL [facility] LABORATORY [...] or in patients with acute kidney failure. [email or web address] Specimen Anatomical Collection Method Collection Time Receive d Time (Source) Location / / Volume Laterality Blood specimen Venous Draw / 07/09/2017 2:30 AM 2016 2:42 (specimen) Unknown EST AM EST Resulting Agency Comment Spec In Lab Yuan Webber MD CHEMISTRY ORDERABLES Performing Organization Address City/State/[place] [address] (ABNORMAL) Potassium (07/09/2017 2:30 AM EST) P athologist Signature Potassium 5.1 (H) 3.5 - 5.0 [facility] mmol/L [facility] Comment: Please note: ??Patients with [...] Organization Address City/State/[place] [address] (ABNORMAL) Hemogram (07/09/2017 2:30 AM EST) Analysis Performed At Patho logist Time Signature WBC 12.5 (H) 4.0 - 9.5 [facility] x10(3)/[facility] LABORATORY RBC 3.38 (L) 4.58 - [facility] 5.54 [facility] x10(6)/[facility] LABORATORY Hemoglobin 10.1 (L) 13.7 - [facility] 16.5 gm/dL [facility] Hematocrit 30.3 (L) 40.5 - [facility] 48.5 % [facility]ORY MCV 89.6 82.9 - [facility] 93.1 [facility] LABORATORY MCH 29.9 27.5 - [place] RYAN 32.1 pg [facility]ATORY MCHC 33.3 32.0 - [facility] 35.7 gm/dL [facility] LAB[facility] Platelets 127 (L) 145 - 357 [facility] x10(3)/[facility] LABORATORY RDWSD 49.3 (H) 36.0 - [place] RYAN 45.0 [facility] LABORATORY RDWCV 15.2 (H) 11.4 - [facility] RYAN 13.8 % [facility] LABORATORY MPV 9.9 7.6 - 12.9 [facility] LABORATORY nRBC % Auto 0.0 % [facility] LABORATORY nRBC Abs Auto 0.000 0.000 - [place] RYAN 0.000 [facility] x10(3)/[facility] LABORATORY Specimen Anatomical Collection Method Collection Time Receive d Time (Source) Location / / Volume Laterality Blood specimen 07/09/2017 2:30 AM 017 2:41 (specimen) EST AM EST Resulting Agency Comment Spec In Lab Yuan Webber MD HEMATOLOGY ORDERABLES Performing Organization Address City/[facility]/ZIP Code Phon e Number [address] POCT Glucose (07/09/2017 2:10 AM EST) P athologist Signature POC Glucose 169 65 - 199 [place] ZHAORYAN mg/dL [facility] Comment: [...] City/[facility]/[place] [address] POCT Glucose (07/09/2017 1:01 AM EST) P athologist Signature POC Glucose 173 65 - 199 [place] ZHAORYAN mg/dL [facility] Comment: [...] City/[facility]/ZIP Code Phon e Number [address] Blood culture (07/09/2017 12:40 AM EST) [facility] Method Time Signature Blood Culture No growth KATALINA VILLAREALCOCK at 5 days. [facility] LABORATORY Specimen Anatomical Collection Method Collection Time Receive d Time (Source) Location / / Volume Laterality Blood specimen STRUCTURE OF RIGHT 07/09/2017 12:40 3:58 (specimen) UPPER LIMB / AM EST AM EST Unknown Resulting Agency Comment Spec In Lab Yuan Webber MD MICROBIOLOGY - BLOOD ORDERAB LES Performing Organization Address City/State/[place] [address] Blood culture (07/09/2017 12:30 AM EST) [facility] [employer] Method Time Signature Blood Culture No growth KATALINA DAVIS at 5 days. [facility] LABORATORY Specimen Anatomical Collection Method Collection Time Receive d Time (Source) Location / / Volume Laterality Blood specimen STRUCTURE OF LEFT 07/09/2017 12:30 1211/2016 3:59 (specimen) UPPER LIMB / AM EST AM EST Unknown Resulting Agency Comment Spec In Lab Yuan Webber MD MICROBIOLOGY - BLOOD ORDERAB LES Performing Organization Address City/[facility]/[place] [address] (ABNORMAL) Urinalysis Microscopic Exam (07/09/2017 12:05 AM EST) Analysis Performed At Patho logist Time Signature RBC UA 32 (H) 0 - 3 /HPF [facility] LABORATORY WBC UA 5 (H) 0 - 3 /HPF [facility] Squam Epith UA <1 <=4 /HPF [facility] Hyaline Cast 17 (H) 0 - 2 /LPF [facility]OR[facility] Gran Cast UA 1 (H) <=0 /LPF [facility] LABOR[facility]ORY Uric Ac Bianca Rare (A) None /HPF [facility]OR[facility] Specimen (Source) Anatomical Collection Method Collection Time Re ceived Time Location / / Volume Laterality Urine specimen 07/09/2017 12:05 07/09/ 7 obtained via AM EST 12:39 AM EST indwelling urinary catheter (specimen) Resulting Agency Comment Spec In Lab Yuan Webber MD URINE ORDERABLES Performing Organization Address City/State/[place] [address] (ABNORMAL) Urinalysis with reflex Culture (07/09/2017 12:05 AM EST) [facility] [employer] Method Time Signature Glucose UA Negative Negative [place] DAVIS mg/dL [facility] Protein UA 30 (A) Negative [facility]/dL [facility] Bilirubin UA Negative Negative [facility] mg/dL [facility] Comment: Clinical correlation required for [...] [facility] Nitrite UA Negative Negative [facility] LABORATORY Leukocytes UA Negative Negative [facility] LABORATORY Appearance UA Hazy (A) Clear [facility] LABORATORY Spec [place] UA 1.025 1.002 - 1.030 [facility] LABORATORY Color UA Yellow Yellow [facility] LABORATORY Culture Reflexed No [facility] LABORATORY Specimen (Source) Anatomical Collection Method Collection Time Re ceived Time Location / / Volume Laterality Urine specimen 07/09/2017 12:05 7 obtained via AM EST 12:39 AM EST indwelling urinary catheter (specimen) Resulting Agency Comment Spec In Lab Yuan Webber MD URINE ORDERABLES Performing Organization Address City/[facility]/[place] [address] POCT Glucose (07/08/2017 11:01 PM EST) P athologist Signature POC Glucose 191 65 - 199 [facility] mg/dL [facility] Comment: [...] Organization Address City/State/ZIP [place] [facility] [address] POCT Glucose (07/08/2017 10:04 PM EST) athologist Signature POC Glucose 198 65 - 199 [facility] mg/dL [facility] Comment: [...] Address City/State/ZIP Code Phon e Number [address] Prepare Albumin 5% in [...] Address City/State/ZIP Code Phon e Number [address] POCT Glucose (07/08/2017 8:28 PM EST) athologist Signature POC Glucose 195 65 - 199 [place] RYAN mg/dL [facility] Comment: [...] Organization Address City/State/[place] [address] (ABNORMAL) POCT Glucose (07/08/2017 7:13 PM EST) P athologist Signature POC Glucose 220 (H) 65 - 199 [facility] mg/dL [facility] Comment: [...] Address City/State/ZIP Code Phon e Number [address] POCT Glucose (07/08/2017 5:04 PM EST) athologist Signature POC Glucose 147 65 - 199 [facility] mg/dL [facility] Comment: [...] Organization Address City/State/[place] [address] (ABNORMAL) BLOOD GAS 2 ARTERIAL (07/08/2017 4:13 PM EST) Analysis Performed At Patho logist Time Signature pH Art 7.38 7.35 - [facility] 7.45 [facility] LABORATORY pCO2 Art 36 35 - 45 [facility] LABORATORY pO2 Art 91 85 - 104 [facility] LABORATORY HCO3 Art 20.9 20.0 - [facility] 26.0 [facility] mmol/L [facility] LABORATORY BE Art -4.2 (L) -3.0 - 3.0 [facility] mmol/L [facility] LABOR[facility]ORY Hgb Blood Gas 11.7 (L) 13.7 - [facility] 16.5 gm/dL [facility] O2HB Art 95.1 94.0 - [facility] 97.0 % [facility] COHB Art 0.6 % [facility] FIO2 Art 40 % [facility] LABORATORY PF Ratio Art 228 [facility] LABORATORY Specimen Anatomical Collection Method Collection Time Receive d Time (Source) Location / / Volume Laterality Blood specimen 07/08/2017 4:13 PM 017 4:13 (specimen) EST PM EST Yuan Webber MD CHEMISTRY ORDERABLES Performing Organization Address City/State/[place] [address] POCT Glucose (07/08/2017 4:01 PM EST) P athologist Signature POC Glucose 148 65 - 199 [facility] mg/dL [facility] LABORATORY [...] Address City/State/ZIP Code Phon e Number [address] POCT Glucose (07/08/2017 3:21 PM EST) athologist Signature POC Glucose 118 65 - 199 [place] ZHAORYAN mg/dL [facility] LABOR[facility] Comment: [...] Address City/State/ZIP Code Phon e Number [address] POCT Glucose (07/08/2017 2:01 PM EST) athologist Signature POC Glucose 129 65 - 199 [place] ZHAORYAN mg/dL [facility] Comment: [...] Organization Address City/State/[place] [address] POCT Glucose (07/08/2017 11:53 AM EST) athologist Signature POC Glucose 156 65 - 199 [place] ZHAORYAN mg/dL [facility] LAB[facility] Comment: [...] Address City/State/ZIP Code Phon e Number [address] POCT Glucose (07/08/2017 11:04 AM EST) athologist Signature POC Glucose 181 65 - 199 [facility] mg/dL [facility] Comment: [...] City/[facility]/[place] [address] (ABNORMAL) POCT Glucose (07/08/2017 9:24 AM EST) athologist Signature POC Glucose 203 (H) 65 - 199 [facility] mg/dL [facility] Comment: [...] Organization Address City/State/[place] [address] APTT (07/08/2017 8:40 AM [...] Webber MD HEMATOLOGY ORDERABLES Performing Organization Address City/[facility]/[place] [address] (ABNORMAL) Prothrombin Time (07/08/2017 [...] Webber MD HEMATOLOGY ORDERABLES Performing Organization Address City/[facility]/[place] [address] (ABNORMAL) POCT Glucose (07/08/2017 7:38 AM EST) P athologist Signature POC Glucose 232 (H) 65 - 199 [facility] mg/dL [facility] LABORATORY [...] City/[facility]/[place] [address] (ABNORMAL) POCT Glucose (07/08/2017 7:07 AM EST) athologist Signature POC Glucose 234 (H) 65 - 199 [facility] mg/dL [facility] Comment: [...] Organization Address City/State/[place] [address] (ABNORMAL) POCT Glucose (07/08/2017 6:04 AM EST) athologist Signature POC Glucose 225 (H) 65 - 199 [facility] mg/dL [facility] Comment: [...] Organization Address City/State/[place] [address] (ABNORMAL) POCT Glucose (07/08/2017 5:31 AM EST) athologist Signature POC Glucose 216 (H) 65 - 199 [facility] mg/dL [facility] Comment: [...] Organization Address City/State/[place] [address] (ABNORMAL) POCT Glucose (07/08/2017 4:52 AM EST) P athologist Signature POC Glucose 257 (H) 65 - 199 [facility] mg/dL [facility] LABORATORY [...] Organization Address City/State/[place] [address] (ABNORMAL) BLOOD GAS 2 ARTERIAL (07/08/2017 4:04 AM EST) Analysis Performed At Patho logist Time Signature pH Art 7.30 (L) 7.35 - [facility] 7.45 [facility] LABORATORY pCO2 Art 41 35 - 45 [facility] LABORATORY pO2 Art 83 (L) 85 - 104 [facility] LABORATORY HCO3 Art 19.6 (L) 20.0 - [facility] 26.0 [facility] mmol/[facility] LABORATORY BE Art -6.8 (L) -3.0 - 3.0 [facility] mmol/L [facility] LABORATORY Hgb Blood Gas 12.2 (L) 13.7 - [facility] 16.5 gm/dL [facility] LABORATORY O2HB Art 93.5 (L) 94.0 - [facility] 97.0 % [facility] LABORAT[facility] COHB Art 0.4 % [facility] [...] biomedical instrument technician. FIO2 Art 40 % [facility] LABORATORY PF Ratio Art 208 [facility] LABORATORY Specimen Anatomical Collection Method Collection Time Receive d Time (Source) Location / / Volume Laterality Blood specimen 07/08/2017 4:04 AM 017 4:04 (specimen) EST AM EST Daphne Shahid MD CHEMISTRY ORDERABLES Performing Organization Address City/[facility]/ZIP Code Phon e Number [address] Scan, Peripheral Blood (07/08/2017 [...] Address City/State/ZIP Code Phon e Number [address] (ABNORMAL) Differential, Automated (07/08/2017 4:00 AM EST) Patholo gist Method Time Signature Neutrophils % 85.4 % [facility] LABORATORY Neutr Abs (ANC) 16.07 (H) 1.70 - [facility] 6.10 [facility] x10(3)/[facility] LABORATORY Lymphocytes % 3.5 % [facility] LABORATORY Lymphocytes Abs 0.6 (L) 0.9 - 3.2 [facility] x10(3)/[facility] LABORATORY Monocytes % 10.4 % [facility] LABORATORY Monocyte Abs 2.0 (H) 0.3 - 0.9 [facility] x10(3)/[facility] LABORATORY Eosinophils % 0.0 % [facility] LABORATORY Eosinophils Abs 0.0 0.0 - 0.4 [facility] x10(3)/[facility] LABORATORY Basophils % 0.1 % [facility] LABORATORY Basophils Abs 0.0 0.0 - 0.1 [facility] x10(3)/[facility] LABORATORY Immature Gran % 0.60 % [facility] [...] Organization Address City/State/[place] [address] (ABNORMAL) Hemogram (07/08/2017 4:00 AM EST) Analysis Performed At Patho logist Time Signature WBC 18.8 (H) 4.0 - 9.5 [facility] x10(3)/[facility] LABORATORY RBC 4.00 (L) 4.58 - [facility] 5.54 [facility] x10(6)/[facility] LABORATORY Hemoglobin 11.9 (L) 13.7 - [facility] 16.5 gm/dL [facility] LABORATORY Hematocrit 35.9 (L) 40.5 - [place] DAVIS 48.5 % [facility] LABORATORY MCV 89.8 82.9 - [facility] 93.1 [facility] LABORATORY MCH 29.8 27.5 - [place] OLIVASCK 32.1 pg [facility] LABORATORY MCHC 33.1 32.0 - [place] DAVIS 35.7 gm/dL [facility] LABORATORY Platelets 232 145 - 357 [facility] x10(3)/[facility] LABORATORY RDWSD 47.6 (H) 36.0 - [place] DAVIS 45.0 [facility] LABORATORY RDWCV 14.5 (H) 11.4 - [facility] 13.8 % [facility] LABORATORY MPV 9.5 7.6 - 12.9 [facility] LABORATORY nRBC % Auto 0.0 % [facility] LABORATORY nRBC Abs Auto 0.000 0.000 - [facility] 0.000 [facility] x10(3)/[facility] LABORATORY Specimen Anatomical Collection Method Collection Time Receive d Time (Source) Location / / Volume Laterality Blood specimen 07/08/2017 4:00 AM 017 4:09 (specimen) EST AM EST Resulting Agency Comment Spec In Lab Yuan Webber MD HEMATOLOGY ORDERABLES Performing Organization Address City/State/ZIP Code Phon e Number [place] [id number] (ABNORMAL) Electrolytes panel (07/08/2017 4:00 AM EST) P athologist Signature Sodium 139 135 - 145 [facility] mmol/L [facility] LABORATORY Potassium 4.7 3.5 - 5.0 [facility] mmol/L [facility] LABORATORY Comment: result [id number] Please note: [...] 21 (L) 22 - 31 mmol/L [facility] Anion Gap 14 5 - 15 mmol/L [place] RYAN [facility] LABORATORY Specimen Anatomical Collection Method Collection Time Receive d Time (Source) Location / / Volume Laterality Blood specimen 07/08/2017 4:00 AM 017 4:10 (specimen) EST AM EST Resulting Agency Comment Spec In Lab Yuan Webber MD CHEMISTRY ORDERABLES Performing Organization Address City/State/[place] [address] (ABNORMAL) Cardiac Enzymes (LEB/CGP) (07/08/2017 4:00 AM EST) P athologist Signature Troponin-T 1.88 (H) 0.00 - [facility] 0.00 ng/mL [facility] LABORATORY Comment: The 99th percentile for [...] additional sample may be indicated. Reference: Third Markle Definition of Myocardial Infarction. Journal of the [place] [employer] 2012;60:1581-98 CK, Total 413 [...] Address City/State/ZIP Code Phon e Number [address] (ABNORMAL) Glucose, fasting (07/08/2017 4:00 AM EST) P athologist Signature Glucose 287 (H) 65 - 99 [facility] Fasting mg/dL [facility] LABORATORY Comment: ?Fasting* Glucose Interpretive C [...] of Diabetes Mellitus, Position Statement from the [place] [employer]. ??Diabete s Care, Volume 33, Supplement 1, Jul 2009 Specimen Anatomical Collection Method Collection Time Receive d Time (Source) Location / / Volume Laterality Blood specimen 07/08/2017 4:00 AM 017 4:09 (specimen) EST AM EST Resulting Agency Comment Spec In Lab Yuan Webber MD CHEMISTRY ORDERABLES Performing Organization Address City/[facility]/[place] [address] (ABNORMAL) Creatinine (07/08/2017 4:00 AM EST) Analysis Performed At Patho logist Time Signature Creatinine 1.55 (H) 0.80 - [place]ALC[place] 1.50 mg/dL [facility] LABORATORY Estimated GFR 44 (L) >=60 [facility] LABORATORY Comment: The reported eGFR should be multiplied b y 1.2 for patients. The MDRD is not an appropriate measure o f renal function for patients with body mass extremes or in patients with acute kidney failure. [email or web address] Specimen Anatomical Collection Method Collection Time Receive d Time (Source) Location / / Volume Laterality Blood specimen 07/08/2017 4:00 AM 017 4:09 (specimen) EST AM EST Resulting Agency Comment Spec In Lab Yuan Webber MD CHEMISTRY ORDERABLES Performing Organization Address City/[facility]/ZIP Code Phon e Number [address] BUN (07/08/2017 4:00 AM EST) P athologist Signature BUN 16 10 - 20 [place] RYAN mg/dL [facility] LABORATORY Specimen Anatomical Collection Method Collection Time Receive d Time (Source) Location / / Volume Laterality Blood specimen 07/08/2017 4:00 AM 017 4:09 (specimen) EST AM EST Resulting Agency Comment Spec In Lab Yuan Webber MD CHEMISTRY ORDERABLES Performing Organization Address City/[facility]/[place] [address] (ABNORMAL) POCT Glucose (07/08/2017 3:00 AM EST) athologist Signature POC Glucose 273 (H) 65 - 199 [facility] mg/dL [facility] Comment: [...] City/[facility]/ZIP Code Phon e Number [address] (ABNORMAL) POCT Glucose (07/08/2017 1:57 AM EST) P athologist Signature POC Glucose 288 (H) 65 - 199 [facility] mg/dL [facility] Comment: [...] City/[facility]/[place] [address] (ABNORMAL) POCT Glucose (07/08/2017 1:01 AM EST) athologist Signature POC Glucose 315 (H) 65 - 199 [facility] mg/dL [facility] LABORATORY [...] City/[facility]/[place] [address] (ABNORMAL) BLOOD GAS 2 ARTERIAL (07/08/2017 12:09 AM EST) athologist Signature pH Art 7.26 7.35 - [facility] (Critical) 7.45 [facility] Comment: Noted by biomedical instrument [...] [facility] LABORAT[facility] COHB Art 0.2 % [place] biomedical instrument technician. FIO2 Art 40 % [facility] LABORATORY PF Ratio Art 240 [facility] LABORATORY Specimen Anatomical Collection Method Collection Time Receive d Time (Source) Location / / Volume Laterality Blood specimen Arterial Draw / 07/08/2017 12:09 2016 5:31 (specimen) Unknown AM EST AM EST Resulting Agency Comment Spec In Lab Samy Maldonado MD CHEMISTRY ORDERABLES Performing Organization Address City/State/[place] [address] (ABNORMAL) POCT Glucose (07/07/2017 10:56 PM EST) P athologist Signature POC Glucose 292 (H) 65 - 199 [facility] mg/dL [facility] LABORATORY [...] Organization Address City/State/[place] [address] (ABNORMAL) BLOOD GAS 2 ARTERIAL (07/07/2017 10:04 PM EST) athologist Signature pH Art 7.22 7.35 - [facility] (Critical) 7.45 [facility] Comment: Noted by biomedical instrument [...] [facility] COHB Art 0.7 % [place] [...] biomedical instrument technician. FIO2 Art 40 % [facility] LABORATORY PF Ratio Art 235 [facility] LABORATORY Specimen Anatomical Collection Method Collection Time Receive d Time (Source) Location / / Volume Laterality Blood specimen 07/07/2017 10:04 7 (specimen) PM EST 10:04 PM EST Daphne Shahid MD CHEMISTRY ORDERABLES Performing Organization Address City/[facility]/ZIP Code Phon e Number [address] (ABNORMAL) Hemoglobin (07/07/2017 10:00 PM EST) P athologist Signature Hemoglobin 12.8 (L) 13.7 - [facility] 16.5 gm/dL [facility] LABOR[facility]ORY Specimen Anatomical Collection Method Collection Time Receive d Time (Source) Location / / Volume Laterality Blood specimen 07/07/2017 10:00 7 (specimen) PM EST 10:13 PM EST Resulting Agency Comment Spec In Lab Yuan Webber MD HEMATOLOGY ORDERABLES Performing Organization Address City/[facility]/[place] [address] (ABNORMAL) Potassium (07/07/2017 10:00 PM EST) P athologist Signature Potassium 3.4 (L) 3.5 - 5.0 [facility] mmol/L [facility] Comment: Please note: ??Patients with [...] Organization Address City/State/[place] [address] (ABNORMAL) POCT Glucose (07/07/2017 8:49 PM EST) P athologist Signature POC Glucose 241 (H) 65 - 199 [facility] mg/dL [facility] [...] City/[facility]/[place] [address] Prepare Albumin 5% in [...] BROWN BLOOD BANK ORDERABLES Performing Organization Address City/[facility]/[place] [address] EKG 12 Lead (07/07/2017 7:17 PM EST) Component Value Ref Range Test Analysis Performed Pathologis t Method Time At Signature Ventricular rate 75 BPM MUSE SYSTEM Atrial Rate 75 BPM MUSE SYSTEM P-R Interval 168 ms MUSE SYSTEM QRS Duration 104 ms MUSE SYSTEM Q-T Interval 462 ms MUSE SYSTEM QTC Calculated 515 ms MUSE SYSTEM (Bezet) Calculated P [place] 52 degrees MUSE SYSTEM Calculated R [place] -40 degrees MUSE SYSTEM Calculated T [place] 39 degrees MUSE SYSTEM INTERPRETATION Normal sinus [...] athologist Signature pH Art 7.21 7.35 - [facility] (Critical) 7.45 [facility] Comment: Noted by biomedical instrument [...] [facility] COHB Art 0.5 % [place] [...] [facility] Comment: Noted by biomedical instrument [...] biomedical instrument technician. FIO2 Art 100 % [facility] PF Ratio Art 238 [facility] Specimen Anatomical Collection Method Collection Time Receive d Time (Source) Location / / Volume Laterality Blood specimen 07/07/2017 6:57 PM 017 6:57 (specimen) EST PM EST Daphne Shahid MD CHEMISTRY ORDERABLES Performing Organization Address City/State/[place] [address] (ABNORMAL) BLOOD GAS 2 ARTERIAL (07/07/2017 5:31 PM EST) P athologist Signature pH Art 7.29 7.35 - [facility] (Critical) 7.45 [facility] Comment: Noted by biomedical instrument [...] [facility] COHB Art 0.3 % [place] [...] Shahid MD CHEMISTRY ORDERABLES Performing Organization Address City/[facility]/ZIP Code Phon e Number [address] Fibrinogen (07/07/2017 5:30 PM EST) P athologist Signature Fibrinogen 224 180 - 510 [facility] mg/dL [facility] Comment: Called by: JEET, Read [...] Perez MD HEMATOLOGY ORDERABLES Performing Organization Address City/[facility]/ZIP [facility] Phon e Number [address] APTT (07/07/2017 5:30 PM [...] Perez MD HEMATOLOGY ORDERABLES Performing Organization Address City/[facility] [place] [address] (ABNORMAL) Prothrombin Time (07/07/2017 [...] Perez MD HEMATOLOGY ORDERABLES Performing Organization Address City/[facility] [place] [address] (ABNORMAL) Hemogram (07/07/2017 5:30 PM EST) P athologist Signature WBC 19.6 (H) 4.0 - 9.5 [facility] x10(3)/[facility] LABORATORY RBC 3.08 (L) 4.58 - [facility] 5.54 [facility] x10(6)/[facility] LABORATORY Hemoglobin 9.2 (L) 13.7 - [facility] 16.5 gm/dL [facility] Hematocrit 28.0 (L) 40.5 - [facility] 48.5 % [facility] Comment: This result has been called to MONICA MORAN by DONALD GROSSMAN on 07 07 2017 at 1759, and has been read back. MCV 90.9 82.9 - 93.1 [facility] LABORATORY MCH 29.9 27.5 - 32.1 pg [facility] MCHC 32.9 32.0 - 35.7 gm/dL [facility] Platelets 155 145 - 357 x10(3)/[facility] LABORATORY RDWSD 46.5 (H) 36.0 - 45.0 [facility] LABORATORY RDWCV 14.1 (H) 11.4 - 13.8 % [facility] MPV 9.5 7.6 - 12.9 [facility] LABORATORY nRBC % Auto 0.0 % [facility]ORATORY nRBC Abs Auto 0.000 0.000 - 0.000 x10(3)/[facility] LABORATORY Specimen Anatomical Collection Method Collection Time Receive d Time (Source) Location / / Volume Laterality Blood specimen 07/07/2017 5:30 PM 017 5:34 (specimen) EST PM EST Resulting Agency Comment Spec In Lab Yifan Perez MD HEMATOLOGY ORDERABLES Performing Organization Address City/State/[place] [address] Prepare Platelets, Apheresis (07/07/2017 5:00 PM EST) P athologist Signature Dispensed? Yes [facility] Specimen Anatomical Collection Method Collection Time Receive d Time (Source) Location / / Volume Laterality Blood specimen 07/07/2017 5:00 PM 017 4:58 (specimen) EST PM EST Daphne Shahid MD BLOOD BANK ORDERABLES Performing Organization Address City/State/[place] [address] Platelet count (07/07/2017 4:55 PM EST) P athologist Signature Platelets 177 145 - 357 KATALINA DAVIS x10(3)/[facility] LABORATORY Plat Immature 1.5 0.0 - 7.4 [place] DAV[place] % % [facility] Comment: Limitation of the Immature Platelet Frac tion (IPF)-May be less reliable when the platelet count is less than 63f792/u L due to statistical imprecision. The IPF [...] in a decreased state of production. References: [employer] The Clinical Value of the Immature Platelet Fraction (IPF) in Cell Recovery Document Number 10-1143 12/2010 [employer] The Role of the Imm ature [...] Organization Address City/State/[place] [address] (ABNORMAL) Hemoglobin and Hematocrit, blood (07/07/2017 4:55 PM EST) P athologist Signature Hemoglobin 9.1 (L) 13.7 - 16.5 [facility] DAV[facility] gm/dL [facility] Comment: This result has been [...] Organization Address City/State/[place] [address] (ABNORMAL) BLOOD GAS 2 ARTERIAL (07/07/2017 4:38 PM EST) Analysis Performed At Patho logist Time Signature pH Art 7.37 7.35 - [facility] 7.45 [facility] pCO2 Art 44 35 - 45 [facility] mmHg [facility] pO2 Art 322 (H) 85 - 104 [facility] LABORATORY HCO3 Art 24.9 20.0 - [facility] 26.0 [facility] mmol/L [facility] LABORATORY BE Art -0.4 -3.0 - 3.0 [facility] mmol/L [facility] Hgb Blood Gas 10.1 (L) 13.7 - [facility] 16.5 gm/dL [facility] O2HB Art 98.7 (H) 94.0 - [facility] 97.0 % [facility] COHB Art 0.1 % [facility] Comment: Noted by biomedical instrument [...] Organization Address City/State/[place] [address] (ABNORMAL) BLOOD GAS 2 VENOUS (07/07/2017 4:06 PM EST) Analysis Performed At Patho logist Time Signature pH Cody 7.31 (L) 7.32 - [facility] 7.42 [facility] pCO2 Cody 47 41 - 51 [facility] LABORATORY pO2 Cody 53 (H) 25 - 40 [facility] LABORATORY HCO3 Cody 22.7 mmol/L [facility] BE Cody -3.7 mmol/L [facility] Hgb Blood Gas 10.2 (L) 13.7 - [facility] 16.5 gm/dL [facility] O2HB Cody 81.0 % [facility] [...] [facility] Comment: Noted by biomedical instrument [...] [facility] BGas Source Venous [facility] Specimen Anatomical Collection Method Collection Time Receive d Time (Source) Location / / Volume Laterality Blood specimen 07/07/2017 4:06 PM 017 4:06 (specimen) EST PM EST Daphne Shahid MD CHEMISTRY ORDERABLES Performing Organization Address City/State/[place] [address] (ABNORMAL) BLOOD GAS 2 ARTERIAL (07/07/2017 4:05 PM EST) Analysis Performed At Patho logist Time Signature pH Art 7.36 7.35 - [facility] 7.45 [facility] pCO2 Art 40 35 - 45 [facility] mmHg [facility] pO2 Art 282 (H) 85 - 104 [facility] LABORATORY HCO3 Art 22.1 20.0 - [facility] 26.0 [facility] mmol/L [facility] LABORATORY BE Art -3.4 (L) -3.0 - 3.0 [facility] mmol/L [facility] Hgb Blood Gas 10.2 (L) 13.7 - [facility] 16.5 gm/dL [facility] O2HB Art 98.4 (H) 94.0 - [facility] 97.0 % [facility] COHB Art 0.3 % [facility] Comment: Noted by biomedical instrument [...] Organization Address City/State/[place] [address] (ABNORMAL) BLOOD GAS 2 ARTERIAL (07/07/2017 2:29 PM EST) Analysis Performed At Patho logist Time Signature pH Art 7.43 7.35 - [facility] 7.45 [facility] pCO2 Art 36 35 - 45 [facility] LABORATORY pO2 Art 221 (H) 85 - 104 [facility] LABORATORY HCO3 Art 23.2 20.0 - [facility] 26.0 [facility] mmol/[facility] LABORATORY BE Art -1.2 -3.0 - 3.0 [facility] mmol/L [facility] Hgb Blood Gas 13.9 13.7 - [facility] 16.5 gm/dL [facility] O2HB Art 97.8 (H) 94.0 - [facility] 97.0 % [facility] COHB Art 1.1 % [facility] [...] Organization Address City/State/[place] [address] Prepare Coag Factors (Non-Hemophilia) (07/07/2017 1:25 PM EST) P athologist Signature Dispensed? Yes [facility] Specimen Anatomical Collection Method Collection Time Receive d Time (Source) Location / / Volume Laterality Blood specimen 07/07/2017 1:25 PM 017 1:21 (specimen) EST PM EST Daphne Shahid MD BLOOD BANK ORDERABLES Performing Organization Address City/State/ZIP Code Phon e Number [address] Prepare RBC (07/07/2017 1:10 PM EST) P athologist Signature Dispensed? Yes [facility] Specimen Anatomical Collection Method Collection Time Receive d Time (Source) Location / / Volume Laterality Blood specimen 07/07/2017 1:10 PM 017 1:05 (specimen) EST PM EST Daphne Shahid MD BLOOD BANK ORDERABLES Performing Organization Address City/State/[place] [address] POCT Glucose (07/07/2017 11:56 AM EST) P athologist Signature POC Glucose 188 65 - 199 [facility]/dL [facility] Comment: [...] City/[facility]/[place] [address] POCT Glucose (07/07/2017 11:05 AM EST) P athologist Signature POC Glucose 168 65 - 199 [facility] mg/dL [facility] Comment: [...] Organization Address City/State/[place] [address] POCT Glucose (07/07/2017 10:02 AM EST) athologist Signature POC Glucose 191 65 - 199 KATALINA ZHAORYAN mg/dL [facility] Comment: [...] Address City/State/ZIP Code Phon e Number [address] POCT Glucose (07/07/2017 7:53 AM EST) athologist Signature POC Glucose 178 65 - 199 [facility] RYAN mg/dL [facility] Comment: [...] Organization Address City/State/[place] [address] POCT Glucose (07/07/2017 7:03 AM EST) athologist Signature POC Glucose 188 65 - 199 [facility] RYAN mg/dL [facility] Comment: [...] Organization Address City/State/[place] [address] (ABNORMAL) POCT Glucose (07/07/2017 6:17 AM EST) athologist Signature POC Glucose 207 (H) 65 - 199 [facility] mg/dL [facility] [...] City/State/ZIP Code Phon e Number [place] [id number] [address]OS[address] LABOR[address]ORY Drive Differential, Automated (07/07/2017 5:15 AM EST) [facility] Neutrophils % 69.7 % [facility] Neutr Abs (ANC) 5.32 1.70 - [facility] 6.10 [facility] x10(3)/[facility] LABORATORY Lymphocytes % 16.3 % [facility] Lymphocytes Abs 1.2 0.9 - 3.2 [facility] x10(3)/[facility] LABORATORY Monocytes % 10.5 % [facility] Monocyte Abs 0.8 0.3 - 0.9 [facility] x10(3)[facility] LABORATORY Eosinophils % 2.5 % [facility] Eosinophils Abs 0.2 0.0 - 0.4 [facility] x10(3)/[facility] LABORATORY Basophils % 0.7 % [facility] Basophils Abs 0.0 0.0 - 0.1 [facility] x10(3)/[facility] LABORATORY Immature Gran % 0.30 [...] Melisa Gran Abs 0.02 0.00 - 0.04 x10(3)/[facility] LABORATORY Specimen Anatomical Collection Method Collection Time Receive d Time (Source) Location / / Volume Laterality Blood specimen 07/07/2017 5:15 AM 017 5:34 (specimen) EST AM EST Resulting Agency Comment Spec In Lab Daphne Shahid MD HEMATOLOGY ORDERABLES Performing Organization Address City/[facility]/[place] [address] (ABNORMAL) Hemogram (07/07/2017 5:15 AM EST) Analysis Performed At Patho logist Time Signature WBC 7.6 4.0 - 9.5 [facility] x10(3)/[facility] LABORATORY RBC 4.82 4.58 - [facility] 5.54 [facility] x10(6)/[facility] LABORATORY Hemoglobin 14.4 13.7 - [facility] 16.5 gm/dL [facility] Hematocrit 42.1 40.5 - [facility] 48.5 % [facility] MCV 87.3 82.9 - [facility] 93.1 [facility] LABORATORY MCH 29.9 27.5 - [facility] 32.1 pg [facility] MCHC 34.2 32.0 - [facility] 35.7 gm/dL [facility] Platelets 188 145 - 357 [facility] x10(3)/[facility] LABORATORY RDWSD 45.1 (H) 36.0 - [facility] 45.0 [facility] LABORATORY RDWCV 14.3 (H) 11.4 - [facility] 13.8 % [facility] MPV 9.4 7.6 - 12.9 [facility] LABORATORY nRBC % Auto 0.0 % [facility] nRBC Abs Auto 0.000 0.000 - [facility] 0.000 [facility] x10(3)/[facility] LABORATORY Specimen Anatomical Collection Method Collection Time Receive d Time (Source) Location / / Volume Laterality Blood specimen 07/07/2017 5:15 AM 017 5:34 (specimen) EST AM EST Resulting Agency Comment Spec In Lab Daphne Shahid MD HEMATOLOGY ORDERABLES Performing Organization Address City/State/[place] [address] (ABNORMAL) APTT (07/07/2017 5:15 [...] Shahid MD HEMATOLOGY ORDERABLES Performing Organization Address City/[facility]/[place] [address] Magnesium (07/07/2017 5:15 AM EST) athologist Signature Magnesium 0.94 0.69 - 1.07 [facility] mmol/L [facility] Specimen Anatomical Collection Method Collection Time Receive d Time (Source) Location / / Volume Laterality Blood specimen 07/07/2017 5:15 AM 017 5:34 (specimen) EST AM EST Resulting Agency Comment Spec In Lab Daphne Shahid MD CHEMISTRY ORDERABLES Performing Organization Address City/[facility]/[place] [address] (ABNORMAL) Basic Metabolic Panel (non-fasting) (07/07/2017 5:15 AM EST) P athologist Signature Glucose Lvl 203 (H) 65 - 199 [facility] mg/dL [facility] [...] or in patients with acute kidney failure. [email or web address]/DHnkdep [email or web address]/DHMCnkf Specimen Anatomical Collection Method Collection Time Receive d Time (Source) Location / / Volume Laterality Blood specimen 07/07/2017 5:15 AM 017 5:34 (specimen) EST AM EST Resulting Agency Comment Spec In Lab Daphne Shahid MD CHEMISTRY ORDERABLES Performing Organization Address City/State/[place] [address] (ABNORMAL) Cardiac Enzymes (LEB/CGP) (07/07/2017 5:15 AM EST) P athologist Signature Troponin-T 2.07 (H) 0.00 - [facility] 0.00 ng/mL [facility] Comment: The 99th percentile for [...] additional sample may be indicated. Reference: Third Markle Definition of Myocardial Infarction. Journal of the [place] [employer] 2012;60:1581-98 CK, Total 88 0 - 200 unit/L [facility] Specimen Anatomical Collection Method Collection Time Receive d Time (Source) Location / / Volume Laterality Blood specimen 07/07/2017 5:15 AM 017 5:34 (specimen) EST AM EST Resulting Agency Comment Spec In Lab Daphne Shahid MD CHEMISTRY ORDERABLES Performing Organization Address City/[facility]/ZIP Code Phon e Number [address] POCT Glucose (07/07/2017 5:01 AM EST) athologist Signature POC Glucose 182 65 - 199 [facility] mg/dL [facility] Comment: Supplemental ranges: <140 mg/dL before meals <180 mg/dL all other times of the day Specimen Anatomical Collection Method Collection Time Receive d Time (Source) Location / / Volume Laterality Blood specimen 07/07/2017 5:01 AM 017 5:01 (specimen) EST AM EST Daphne Shahid MD POINT OF CARE TEST ORDERABLE S Performing Organization Address City/[facility]/ZIP [facility] Phon e Number [address] POCT Glucose (07/07/2017 4:08 AM EST) athologist Signature POC Glucose 199 65 - 199 [facility] mg/dL [facility] Comment: [...] Address City/State/ZIP Code Phon e Number [address] POCT Glucose (07/07/2017 3:03 AM EST) athologist Signature POC Glucose 188 65 - 199 [place] RYAN mg/dL [facility] Comment: [...] Organization Address City/State/[place] [address] (ABNORMAL) POCT Glucose (07/07/2017 2:08 AM EST) athologist Signature POC Glucose 200 (H) 65 - 199 [place] RYAN mg/dL [facility] Comment: [...] Address City/State/ZIP Code Phon e Number [address] (ABNORMAL) POCT Glucose (07/07/2017 1:31 AM EST) athologist Signature POC Glucose 209 (H) 65 - 199 [place]AL[place] RYAN mg/dL [facility] Comment: [...] Organization Address City/State/[place] [address] XR Chest PA or [...] Signature POC Glucose 161 65 - 199 [facility] mg/dL [facility] [...] Organization Address City/State/[place] [address] (ABNORMAL) APTT (07/07/2017 12:00 [...] Shahid MD HEMATOLOGY ORDERABLES Performing Organization Address City/[facility]/[place] [address] POCT Glucose (07/06/2017 9:55 PM EST) athologist Signature POC Glucose 109 65 - 199 [facility] mg/dL [facility] Comment: [...] City/[facility]/[place] [address] POCT Glucose (07/06/2017 9:04 PM EST) athologist Signature POC Glucose 120 65 - 199 [facility] R[facility] mg/dL [facility] Comment: [...] City/[facility]/[place] [address] POCT Glucose (07/06/2017 7:45 PM EST) athologist Signature POC Glucose 158 65 - 199 [facility] mg/dL [facility] [...] City/[facility]/[place] [address] Potassium (07/06/2017 7:40 PM EST) athologist Signature Potassium 3.9 3.5 - 5.0 [facility] mmol/L [facility] Comment: Please note: ??Patients with [...] Shahid MD CHEMISTRY ORDERABLES Performing Organization Address City/[facility]/[place] [address] (ABNORMAL) Cardiac Enzymes (LEB/CGP) (07/06/2017 7:40 PM EST) athologist Signature Troponin-T 2.27 (H) 0.00 - [facility] 0.00 ng/mL [facility] Comment: The 99th percentile for [...] additional sample may be indicated. Reference: Third Markle Definition of Myocardial Infarction. Journal of the [place] [employer] 2012;60:1581-98 CK, Total 93 0 - 200 unit/L [facility] Specimen Anatomical Collection Method Collection Time Receive d Time (Source) Location / / Volume Laterality Blood specimen 07/06/2017 7:40 PM 017 7:52 (specimen) EST PM EST Resulting Agency Comment Spec In Lab Daphne Shahid MD CHEMISTRY ORDERABLES Performing Organization Address City/State/[place] [address] (ABNORMAL) POCT Glucose (07/06/2017 7:13 PM EST) athologist Signature POC Glucose 200 (H) 65 - 199 [facility] mg/dL [facility] Comment: [...] City/[facility]/[place] [address] (ABNORMAL) APTT (07/06/2017 6:15 [...] Shahid MD HEMATOLOGY ORDERABLES Performing Organization Address City/[facility]/[place] [address] (ABNORMAL) POCT Glucose (07/06/2017 6:03 PM EST) athologist Signature POC Glucose 236 (H) 65 - 199 [facility] mg/dL [facility] Comment: [...] City/[facility]/[place] [address] (ABNORMAL) POCT Glucose (07/06/2017 5:01 PM EST) athologist Signature POC Glucose 235 (H) 65 - 199 [facility] R[facility] mg/dL [facility] Comment: Supplemental ranges: <140 mg/dL before meals <180 mg/dL all other times of the day Specimen Anatomical Collection Method Collection Time Receive d Time (Source) Location / / Volume Laterality Blood specimen 07/06/2017 5:01 PM 017 5:01 (specimen) EST PM EST Dahpne Shahid MD POINT OF CARE TEST ORDERABLE S Performing Organization Address City/State/[place] [address] (ABNORMAL) POCT Glucose (07/06/2017 4:06 PM EST) athologist Signature POC Glucose 202 (H) 65 - 199 [place] RYAN mg/dL [facility] Comment: [...] Organization Address City/State/[place] [address] POCT Glucose (07/06/2017 2:59 PM EST) athologist Signature POC Glucose 178 65 - 199 KATALINA RAYN mg/dL [facility] Comment: [...] Organization Address City/State/[place] [address] (ABNORMAL) Cardiac Enzymes (LEB/CGP) (07/06/2017 2:10 PM EST) athologist Signature Troponin-T 2.34 (H) 0.00 - [facility] 0.00 ng/mL [facility] Comment: The 99th percentile for [...] additional sample may be indicated. Reference: Third Markle Definition of Myocardial Infarction. Journal of the [place] [employer] 2012;60:1581-98 CK, Total 101 0 - 200 unit/L [facility] Specimen Anatomical Collection Method Collection Time Receive d Time (Source) Location / / Volume Laterality Blood specimen 07/06/2017 2:10 PM 017 2:26 (specimen) EST PM EST Resulting Agency Comment Spec In Lab Daphne Shahid MD CHEMISTRY ORDERABLES Performing Organization Address City/State/[place] [address] POCT Glucose (07/06/2017 2:08 PM EST) P athologist Signature POC Glucose 192 65 - 199 [facility] mg/dL [facility] LABORATORY [...] Address City/State/ZIP Code Phon e Number [address] POCT Glucose (07/06/2017 1:04 PM EST) P athologist Signature POC Glucose 162 65 - 199 [facility]/dL [facility] LABORATORY Comment: [...] City/[facility]/ZIP Code Phon e Number [address] POCT Glucose (07/06/2017 12:05 PM EST) athologist Signature POC Glucose 196 65 - 199 [facility] mg/dL [facility] LABORATORY Comment: [...] Organization Address City/State/[place] [address] EKG 12 Lead (07/06/2017 12:00 PM EST) Component Value Ref Range Test Analysis Performed Pathologis t Method Time At Signature Ventricular rate 91 BPM MUSE SYSTEM Atrial Rate 91 BPM MUSE SYSTEM P-R Interval 140 ms MUSE SYSTEM QRS Duration 94 ms MUSE SYSTEM Q-T Interval 394 ms MUSE SYSTEM QTC Calculated 484 ms MUSE SYSTEM (Bezet) Calculated P [place] 36 degrees MUSE SYSTEM Calculated R [place] -19 degrees MUSE SYSTEM Calculated T [place] 104 degrees MUSE SYSTEM INTERPRETATION Normal sinus rhythm MUSE SYSTEM 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) ST & T wave abnormality, consider lateral ischemia Abnormal ECG When compared with ECG of 05-JUL-2017 20:39, No significant change was found Confirmed by MD Verma Gregory A. ([id number]) on 07/06/2017 5:07:33 PM Specimen Anatomical Collection [...] City/[facility]/[place] [address] Antibody screen (07/06/2017 12:00 PM EST) [facility] Method Time Signature Ab Screen Negative [facility] LABORATORY Expires at 07/09/2017 [facility] 235 on: [facility] LABORATORY Specimen Anatomical Collection Method Collection Time Receive d Time (Source) Location / / Volume Laterality Blood specimen 07/06/2017 12:00 7 (specimen) PM EST 12:24 PM EST Resulting Agency Comment Spec In Lab Daphne Shahid MD BLOOD BANK ORDERABLES Performing Organization Address City/[facility]/[place] [address] ABO/Rh Typing (07/06/2017 12:00 [...] Organization Address City/State/[place] [address] Prothrombin Time (07/06/2017 11:24 [...] Shahid MD HEMATOLOGY ORDERABLES Performing Organization Address City/[facility]/[place] [address] (ABNORMAL) APTT (07/06/2017 11:24 [...] Organization Address City/State/[place] [address] POCT Glucose (07/06/2017 11:02 AM EST) athologist Signature POC Glucose 187 65 - 199 [facility] mg/dL [facility] LABORATORY Comment: [...] Address City/State/ZIP Code Phon e Number [address] POCT Glucose (07/06/2017 10:18 AM EST) athologist Signature POC Glucose 193 65 - 199 [facility] mg/dL [facility] LABORATORY Comment: [...] Address City/State/ZIP Code Phon e Number [address] POCT Glucose (07/06/2017 9:25 AM EST) athologist Signature POC Glucose 182 65 - 199 [place] mg/dL [facility] LABORATORY Comment: [...] Organization Address City/State/[place] [address] (ABNORMAL) Cardiac Enzymes (LEB/CGP) (07/06/2017 8:10 AM EST) athologist Signature Troponin-T 2.26 (H) 0.00 - [facility] 0.00 ng/mL [facility] LABORATORY Comment: The 99th percentile for [...] additional sample may be indicated. Reference: Third Markle Definition of Myocardial Infarction. Journal of the [place] College [employer] 2012;60:1581-98 CK, Total 124 0 - 200 unit/L [facility] LABORATORY Specimen Anatomical Collection Method Collection Time Receive d Time (Source) Location / / Volume Laterality Blood specimen 07/06/2017 8:10 AM 017 8:23 (specimen) EST AM EST Resulting Agency Comment Spec In Lab Daphne Shahid MD CHEMISTRY ORDERABLES Performing Organization Address City/State/[place] [address] Magnesium (07/06/2017 8:10 AM EST) athologist Signature Magnesium 0.84 0.69 - 1.07 [facility] mmol/L [facility] LABORATORY Specimen Anatomical Collection Method Collection Time Receive d Time (Source) Location / / Volume Laterality Blood specimen 07/06/2017 8:10 AM 017 8:21 (specimen) EST AM EST Resulting Agency Comment Spec In Lab Daphne Shahid MD CHEMISTRY ORDERABLES Performing Organization Address City/[facility]/[place] [address] (ABNORMAL) Basic Metabolic Panel (non-fasting) (07/06/2017 8:10 AM EST) P athologist Signature Glucose Lvl 199 65 - 199 [facility] mg/dL [facility] LABORATORY [...] or in patients with acute kidney failure. [email or web address] Specimen Anatomical Collection Method Collection Time Receive d Time (Source) Location / / Volume Laterality Blood specimen 07/06/2017 8:10 AM 017 8:21 (specimen) EST AM EST Resulting Agency Comment Spec In Lab Daphne Shahid MD CHEMISTRY ORDERABLES Performing Organization Address City/[facility]/[place] [address] POCT Glucose (07/06/2017 7:34 AM EST) P athologist Signature POC Glucose 198 65 - 199 [facility] mg/dL [facility] LAB[facility] Comment: [...] Address City/State/ZIP Code Phon e Number [address] POCT Glucose (07/06/2017 7:03 AM EST) athologist Signature POC Glucose 181 65 - 199 [facility] mg/dL [facility] LAB[facility] Comment: [...] Organization Address City/State/[place] [address] XR Chest PA or [...] Signature POC Glucose 172 65 - 199 [facility] mg/dL [facility] LABORATORY [...] Organization Address City/State/[place] [address] POCT Glucose (07/06/2017 5:08 AM EST) athologist Signature POC Glucose 154 65 - 199 [facility] mg/dL [facility] LABORATORY [...] Address City/State/ZIP Code Phon e Number [address] POCT Glucose (07/06/2017 4:05 AM EST) athologist Signature POC Glucose 142 65 - 199 [facility] mg/dL [facility] LAB[facility] Comment: [...] City/[facility]/ZIP Code Phon e Number [address] POCT Glucose (07/06/2017 3:00 AM EST) athologist Signature POC Glucose 116 65 - 199 [facility] mg/dL [facility] LAB[facility] Comment: [...] Address City/State/ZIP Code Phon e Number [address] Potassium (07/06/2017 2:20 AM EST) athologist Signature Potassium 3.9 3.5 - 5.0 [facility] mmol/L [facility] LABORATORY Comment: Please note: ??Patients with [...] Organization Address City/State/[place] [address] Differential, Automated (07/06/2017 2:20 AM EST) athologist Signature Neutrophils % 72.9 % [facility] LABORATORY Neutr Abs (ANC) 5.53 1.70 - [facility] 6.10 [facility] x10(3)[facility] LABORATORY Lymphocytes % 16.4 % [facility] Lymphocytes Abs 1.2 0.9 - 3.2 [facility] x10(3)/[facility] LABORATORY Monocytes % 9.4 % [facility] Monocyte Abs 0.7 0.3 - 0.9 [facility] x10(3)/[facility] LABORATORY Eosinophils % 0.5 % [facility] Eosinophils Abs 0.0 0.0 - 0.4 [facility] x10(3)[facility] LABORATORY Basophils % 0.4 % [facility] Basophils Abs 0.0 0.0 - 0.1 [facility] x10(3)/[facility] LABORATORY Immature Gran % 0.40 % [facility] Comment: Immature granulocytes(IG's)percentage an d absolute count will include metamyelocytes, myelocytes, and promyelo cytes. Blood smears from CBCs yielding IG's will be scanned manually for concor dance. If this scan disagrees with the automated IG or if promyelocytes are not ed, a manual differential will be performed. Melisa Gran Abs 0.03 0.00 - 0.04 x10(3)/[facility] LABORATORY Specimen Anatomical Collection Method Collection Time Receive d Time (Source) Location / / Volume Laterality Blood specimen 07/06/2017 2:20 AM 017 2:33 (specimen) EST AM EST Resulting Agency Comment Spec In Lab Daphne Shahid MD HEMATOLOGY ORDERABLES Performing Organization Address City/State/[place] [address] (ABNORMAL) Hemogram (07/06/2017 2:20 AM EST) Analysis Performed At Patho logist Time Signature WBC 7.6 4.0 - 9.5 [facility] x10(3)/[facility] LABORATORY RBC 4.52 (L) 4.58 - [facility] 5.54 [facility] x10(6)/[facility] LABORATORY Hemoglobin 13.4 (L) 13.7 - [facility] 16.5 gm/dL [facility] LABORATORY Hematocrit 39.7 (L) 40.5 - [facility] 48.5 % [facility] LABORATORY MCV 87.8 82.9 - [facility] 93.1 [facility] LABORATORY MCH 29.6 27.5 - [place] 32.1 pg [facility] LABORATORY MCHC 33.8 32.0 - [facility] 35.7 gm/dL [facility] LABORATORY Platelets 189 145 - 357 [facility] x10(3)/[facility] LABORATORY RDWSD 45.6 (H) 36.0 - [facility] 45.0 [facility] LABORATORY RDWCV 14.3 (H) 11.4 - [facility] 13.8 % [facility] LABORATORY MPV 9.1 7.6 - 12.9 [facility] nRBC % Auto 0.0 % [facility] LABORATORY nRBC Abs Auto 0.000 0.000 - [place] [facility] 0.000 [facility] x10(3)/[facility] LABORATORY Specimen Anatomical Collection Method Collection Time Receive d Time (Source) Location / / Volume Laterality Blood specimen 07/06/2017 2:20 AM 017 2:33 (specimen) EST AM EST Resulting Agency Comment Spec In Lab Daphne Shahid MD HEMATOLOGY ORDERABLES Performing Organization Address City/State/ZIP [place] [address] (ABNORMAL) APTT (07/06/2017 2:20 [...] Organization Address City/State/[place] [address] POCT Glucose (07/06/2017 2:20 AM EST) athologist Signature POC Glucose 115 65 - 199 [facility] mg/dL [facility] LABORATORY [...] Organization Address City/State/[place] [address] (ABNORMAL) Cardiac Enzymes (LEB/CGP) (07/06/2017 2:20 AM EST) athologist Signature Troponin-T 2.13 (H) 0.00 - [facility] 0.00 ng/mL [facility] LABORATORY Comment: The 99th percentile for [...] additional sample may be indicated. Reference: Third Markle Definition of Myocardial Infarction. Journal of the [place] College of [employer]iology 2012;60:1581-98 CK, Total 129 0 - 200 unit/L [facility] LABORATORY Specimen Anatomical Collection Method Collection Time Receive d Time (Source) Location / / Volume Laterality Blood specimen 07/06/2017 2:20 AM 017 2:33 (specimen) EST AM EST Resulting Agency Comment Spec In Lab Dpahne Shahid MD CHEMISTRY ORDERABLES Performing Organization Address City/State/[place] [address] (ABNORMAL) Hemoglobin A1c (07/06/2017 [...] into estimated average glucose values. ??Diabetes Care 2008:31(8):7511-2802. Specimen Anatomical Collection Method Collection Time Receive d Time (Source) Location / / Volume Laterality Blood specimen 07/06/2017 2:20 AM 017 2:34 (specimen) EST AM EST Resulting Agency Comment Spec In Lab Daphne Shahid MD CHEMISTRY ORDERABLES Performing Organization Address City/State/[place] [address] (ABNORMAL) Lipid Panel (07/06/2017 2:20 AM EST) [facility] Method Time Signature Chol, Total 150 <=239 [place] mg/dL [facility] LABORATORY Triglycerides 129 <=199 [place] mg/dL [facility] LABORATORY HDL 32 (L) >=40 [place] mg/dL [facility] LABORATORY LDL Cholesterol 92 <=190 [place] mg/dL [facility] LABORATORY Chol/HDL Ratio 4.7 ratio [place] [facility] LABORATORY Lipid See Note [place] Hernandes [facility] LABORATORY Comment: Lipid management should be guided by a p atient? s ASCVD risk, goals and preferences. ACC/AHA Guidelines recommend high intens ity statin if clinical ASCVD or LDL greater than or equal to 190 mg/dL. [email or web address] Adults aged 40-75 with LDL 70-189 mg/dL should have their 10 year ASCVD risk estimated with the ACC/AHA ASCVD risk es timator http://tools.acc.org/IUSAV-Iink-Ilhabicf r/ Statin should be discussed if risk [...] Organization Address City/State/[place] [address] POCT Glucose (07/06/2017 1:09 AM EST) P athologist Signature POC Glucose 121 65 - 199 [facility] mg/dL [facility] LABORATORY [...] City/State/ZIP Code [place] [address] POCT Glucose (07/06/2017 12:06 AM EST) athologist Signature POC Glucose 147 65 - 199 [facility] mg/dL [facility] LAB[facility]ORY Comment: [...] Organization Address City/State/[place] [address] (ABNORMAL) POCT Glucose (07/05/2017 10:56 PM EST) athologist Signature POC Glucose 200 (H) 65 - 199 [facility] mg/dL [facility] LABORATORY Comment: [...] Organization Address City/State/[place] [address] (ABNORMAL) POCT Glucose (07/05/2017 10:05 PM EST) athologist Signature POC Glucose 225 (H) 65 - 199 [facility] mg/dL [facility] LABORATORY Comment: [...] Organization Address City/State/[place] [address] (ABNORMAL) POCT Glucose (07/05/2017 9:02 PM EST) P athologist Signature POC Glucose 301 (H) 65 - 199 [place] mg/dL [facility] LABORATORY Comment: [...] Phon e Number [facility] [address] XR Chest PA or [...] 474 ms MUSE SYSTEM (Bezet) Calculated P [place] 50 degrees MUSE SYSTEM Calculated R [place] -28 degrees MUSE SYSTEM Calculated T [place] 90 degrees MUSE SYSTEM INTERPRETATION Sinus tachycardia [...] (ABNORMAL) Differential, Automated (07/05/2017 8:20 PM EST) [facility] gist Method Time Signature Neutrophils % 88.4 % [facility] LABORATORY Neutr Abs (ANC) 9.08 (H) 1.70 - [facility] 6.10 [facility] x10(3)/[facility] LABORATORY Lymphocytes % 7.0 % [facility] LABORATORY Lymphocytes Abs 0.7 (L) 0.9 - 3.2 [facility] x10(3)/[facility] LABORATORY Monocytes % 3.7 % [facility] LABORATORY Monocyte Abs 0.4 0.3 - 0.9 [facility] x10(3)/[facility] LABORATORY Eosinophils % 0.1 % [facility] LABORATORY Eosinophils Abs 0.0 0.0 - 0.4 [facility] x10(3)/[facility] LABORATORY Basophils % 0.2 % [facility] LABORATORY Basophils Abs 0.0 0.0 - 0.1 [facility] x10(3)/[facility] LABORATORY Immature Gran % 0.60 % NOR[facility] [...] Organization Address City/State/[place] [address] (ABNORMAL) Hemogram (07/05/2017 8:20 PM EST) Analysis Performed At Patho logist Time Signature WBC 10.3 (H) 4.0 - 9.5 [facility] x10(3)/[facility] LABORATORY RBC 4.64 4.58 - [facility] 5.54 [facility] x10(6)/[facility] LABORATORY Hemoglobin 14.1 13.7 - [facility] 16.5 gm/dL [facility] LABORATORY Hematocrit 40.8 40.5 - [place] 48.5 % [facility] LABORATORY MCV 87.9 82.9 - [facility] 93.1 [facility] LABORATORY MCH 30.4 27.5 - [place] 32.1 pg [facility] LABORATORY MCHC 34.6 32.0 - [facility] 35.7 gm/dL [facility] LABORATORY Platelets 204 145 - 357 [facility] x10(3)/[facility] LABORATORY RDWSD 46.1 (H) 36.0 - [place] 45.0 [facility] LABORATORY RDWCV 14.5 (H) 11.4 - [facility] 13.8 % [facility] LABORATORY MPV 9.7 7.6 - 12.9 [facility] LABORATORY nRBC % Auto 0.0 % [facility] LABORATORY nRBC Abs Auto 0.000 0.000 - [place] 0.000 [facility] x10(3)/[facility] LABORATORY Specimen Anatomical Collection Method Collection Time Receive d Time (Source) Location / / Volume Laterality Blood specimen 07/05/2017 8:20 PM 017 8:27 (specimen) EST PM EST Resulting Agency Comment Spec In Lab Daphne Shahid MD HEMATOLOGY ORDERABLES Performing Organization Address City/[facility]/ZIP Code Phon e Number [address] APTT (07/05/2017 8:20 [...] Shahid MD HEMATOLOGY ORDERABLES Performing Organization Address City/[facility]/ZIP [facility] [place] [address] (ABNORMAL) Cardiac Enzymes (LEB/CGP) (07/05/2017 8:20 PM EST) P athologist Signature Troponin-T 2.11 (H) 0.00 - [facility] 0.00 ng/mL [facility] LABORATORY Comment: The 99th percentile for [...] additional sample may be indicated. Reference: Third Markle Definition of Myocardial Infarction. Journal of the [place] College of [employer]iology 2012;60:1581-98 CK, Total 149 0 - 200 unit/L [facility] LABORATORY Specimen Anatomical Collection Method Collection Time Receive d Time (Source) Location / / Volume Laterality Blood specimen 07/05/2017 8:20 PM 017 8:27 (specimen) EST PM EST Resulting Agency Comment Spec In Lab Daphne Shahid MD CHEMISTRY ORDERABLES Performing Organization Address City/[facility]/[place] [address] (ABNORMAL) Magnesium (07/05/2017 8:20 PM EST) P athologist Signature Magnesium 0.68 (L) 0.69 - 1.07 [facility] mmol/L [facility] LABORATORY Specimen Anatomical Collection Method Collection Time Receive d Time (Source) Location / / Volume Laterality Blood specimen 07/05/2017 8:20 PM 017 8:27 (specimen) EST PM EST Resulting Agency Comment Spec In Lab Daphne Shahid MD CHEMISTRY ORDERABLES Performing Organization Address City/State/[place] [address] (ABNORMAL) Basic Metabolic Panel (non-fasting) (07/05/2017 8:20 PM EST) athologist Signature Glucose Lvl 321 (H) 65 - 199 [facility] mg/dL [facility] LABORATORY [...] or in patients with acute kidney failure. [email or web address] Specimen Anatomical Collection Method Collection Time Receive d Time (Source) Location / / Volume Laterality Blood specimen 07/05/2017 8:20 PM 017 8:27 (specimen) EST PM EST Resulting Agency Comment Spec In Lab Daphne Shahid MD CHEMISTRY ORDERABLES Performing Organization Address City/State/[place] [address] (ABNORMAL) POCT Glucose (07/05/2017 7:32 PM EST) athologist Signature POC Glucose 296 (H) 65 - 199 [facility] mg/dL [facility] LABORATORY [...] Address City/State/ZIP Code [place] [address] CARDIAC CATHETERIZATION (07/05/2017 6:47 PM EST) Anatomical Region Laterality Modality Other Specimen (Source) Anatomical Location Collection Method / Collectio n Time Received Time / Laterality Volume Narrative 07/05/2017 7:27 PM EST ?[facility] ? Cardiac Cathete rization/Intervention Report ? Patient Name: Natalya, Gregory ? Procedure Date: 07/05/2017 ? A #: [id number] ? Primary Physician: Clarisa, Jet T ? Case #: [id number] ? File Name: [id number] ? Catheterization Order Number: [id number] ? [facility] ?[facility] ? Final Report [place], [place] ? Patient Name: ? Gregory Natalya ?ID#: ?[id number] ? : ?1945 ? Procedure Date: ? [...] presented with: non -STEMI (w/i 7 days). [place] ?Cardiovascular Society angina c lass was IV. 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 ? Jet Mckenna, M.D. ? Electronically Signed by: Jet Sampson DeVrizack s, M.D. ? Report Finalized: 07/05/2017 ??19:23 ? Report Last Ammended: 10/26/2017 ??10:29 ? Procedure Note Jet Mckenna MD - 10/26/2017Formatt ing of this note might be different from the original. [facility] Cardiac Catheterization/Intervention Re port Patient Name: Gregory Hoang Procedure Date: 07/05/2017 A #: [id number] Primary Physician: Jet Mckenna Case #: [id number] File Name: [id number] Catheterization Order Number: [id number] [facility] Scheduling Coordinator [facility] Final Report [place], [place] Patient Name: Gregory Hoang ID#: [id number] : 1945 Procedure Date: July 05, [...] presented with: non-STEMI ( w/i 7 days). [place] [employer] angina class was IV. 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 Jet Mckenna M.D. Electronically Signed by: [...] E ? (Age): 1945(72y) Med Rec#: ? [id number] ?Sex: ?M ? Site Loc: ? [facility] ?Ht / Wt: ??173(cm)/86(kg) Pt. Loc: ?[facility] ? BSA: ?2 Study Date: ?? 07/05/2017 ?Pt. Type: Inpatient Tape: ? Referring: Daphne Shahid ([id number]) Referring: MANDA ALCANTAR Reading: Blade Preston ([id number]) Tie Cutter: Dayami Paula BA, [facility] Diagnosis: *ICD-10-PCS Non-ST elevation (NSTEMI) m [...] E-wave Vmax ?0.8 ?m/sec ? MV deceleration [id number] ?msec ? MV A-wave Vmax ?0.8 ?m/sec [...] ? Mid-Inferior ?Akinetic ? Mid-Inferoseptal ?Hypokinetic ? [place]-Septal ? Akinetic ? [place]-Anterior ? Hypokinetic ? [place]-Lateral ?Hypokinetic ? [place]-Inferior ? Akinetic ? [place]-Tip ?Akinetic ? This report has been electronically sign ed by: _ Blade Preston MD ? 07/06/2017 08 :53:15 Images reviewed and interpretation verif ied [facility] Cardiac Ultrasound Laboratory Procedure Note Blade Preston MD - 07/06/2017Formatt ing of this note might be different from the original. Procedure: Transthoracic Echocardiogram Patient: NATALYA MCBRIDE(Age): [birth year]72y) Med Rec#: [id number] Sex: M Site Loc: [facility] Ht / Wt: 173(cm)/86(kg) Pt. Loc: U BSA: 2 Study Date: 07/05/2017 Pt. Type: Inpatie nt Tape: Referring: Daphne Shahid ([id number]) Referring: MANDA ALCANTAR Reading: Blade Preston ([id number]) Tie Cutter: Dayami Paula BA, [facility] Diagnosis: *ICD-10-PCS Non-ST elevation (NSTEMI) m [...] enhance endocardial definition. Excess contrast was discarde dMadiah Garay 2D Value Units (Range) IVSd (2D) [...] MV E-wave Vmax 0.8 m/sec MV deceleration vids709 msec MV A-wave Vmax 0.8 m/sec MV [...] Hypokinetic Mid-Posterolateral Hypokinetic Mid-Inferior Akinetic Mid-Inferoseptal Hypokinetic [place]-Septal Akinetic [place]-Anterior Hypokinetic [place]-Lateral Hypokinetic [place]-Inferior Akinetic [place]-Tip Akinetic This report has been electronically sign ed by: _ Blade Preston MD 07/06/2017 08:53:15 Images reviewed and interpretation verif ied [facility] Cardiac Ultrasound Laboratory Daphne Shahid MD ECHO ORDERABLES Differential, Automated (07/05/2017 4:55 PM EST) athologist Signature Neutrophils % 77.0 % [facility] Neutr Abs (ANC) 5.26 1.70 - [facility] 6.10 [facility] x10(3)[facility] Lymphocytes % 13.3 % [facility] Lymphocytes Abs 0.9 0.9 - 3.2 [facility] x10(3)/[facility] LABORATORY Monocytes % 8.2 % [facility] Monocyte Abs 0.6 0.3 - 0.9 [facility] x10(3)/[facility] LABORATORY Eosinophils % 0.7 % [facility] Eosinophils Abs 0.0 0.0 - 0.4 [facility] x10(3)[facility] LABORATORY Basophils % 0.4 % [facility] Basophils Abs 0.0 0.0 - 0.1 [facility] x10(3)/[facility] LABORATORY Immature Gran % 0.40 % [facility] Comment: Immature granulocytes(IG's)percentage an d absolute count will include metamyelocytes, myelocytes, and promyelo cytes. Blood smears from CBCs yielding IG's will be scanned manually for concor dance. If this scan disagrees with the automated IG or if promyelocytes are not ed, a manual differential will be performed. Melisa Gran Abs 0.03 0.00 - 0.04 x10(3)/[facility] LABORATORY Specimen Anatomical Collection Method Collection Time Receive d Time (Source) Location / / Volume Laterality Blood specimen 07/05/2017 4:55 PM 017 5:24 (specimen) EST PM EST Resulting Agency Comment Spec In Lab Daphne Shahid MD HEMATOLOGY ORDERABLES Performing Organization Address City/State/[place] [address] (ABNORMAL) Hemogram (07/05/2017 4:55 PM EST) Analysis Performed At Patho logist Time Signature WBC 6.8 4.0 - 9.5 [facility] x10(3)/[facility] LABORATORY RBC 4.67 4.58 - [place] 5.54 [facility] x10(6)/[facility] LABORATORY Hemoglobin 14.0 13.7 - [facility] 16.5 gm/dL [facility] Hematocrit 41.0 40.5 - [facility] [place] 48.5 % [facility] MCV 87.8 82.9 - [facility] 93.1 [facility] LABORATORY MCH 30.0 27.5 - [place] 32.1 pg [facility] MCHC 34.1 32.0 - [place] 35.7 gm/dL [facility] Platelets 197 145 - 357 [facility] x[facility](3)/[facility] LABORATORY RDWSD 46.4 (H) 36.0 - [facility] 45.0 [facility] LABORATORY RDWCV 14.5 (H) 11.4 - [facility] 13.8 % [facility] LABOR[facility] MPV 9.7 7.6 - 12.9 [facility] nRBC % Auto 0.0 % [facility] nRBC Abs Auto 0.000 0.000 - [facility] [place] 0.000 [facility] x10(3)/[facility] LABORATORY Specimen Anatomical Collection Method Collection Time Receive d Time (Source) Location / / Volume Laterality Blood specimen 07/05/2017 4:55 PM 017 5:24 (specimen) EST PM EST Resulting Agency Comment Spec In Lab Daphne Shahid MD HEMATOLOGY ORDERABLES Performing Organization Address City/State/[place] [address] (ABNORMAL) Cardiac Enzymes (LEB/CGP) (07/05/2017 4:55 PM EST) P athologist Signature Troponin-T 1.69 (H) 0.00 - [place] DAV[place] 0.00 ng/mL [facility] Comment: The 99th percentile for [...] additional sample may be indicated. Reference: Third Markle Definition of Myocardial Infarction. Journal of the [place] College of Cardiology 2012;60:1581-98 CK, Total 191 0 - 200 unit/L [facility] Specimen Anatomical Collection Method Collection Time Receive d Time (Source) Location / / Volume Laterality Blood specimen 07/05/2017 4:55 PM 017 5:56 (specimen) EST PM EST Resulting Agency Comment Spec In Lab Daphne Shahid MD CHEMISTRY ORDERABLES Performing Organization Address City/State/ZIP Code Phon e Number [place] [phone] [address]OS[address] (ABNORMAL) pro-Brain Natriuretic Peptide (07/05/2017 4:55 PM EST) P athologist Signature ProBNP 1,598 (H) <=125 [facility] pg/mL [facility] LABOR[facility]ORY Specimen Anatomical Collection Method Collection Time Receive d Time (Source) Location / / Volume Laterality Blood specimen 07/05/2017 4:55 PM 017 5:24 (specimen) EST PM EST Resulting Agency Comment Spec In Lab Daphne Shahid MD CHEMISTRY ORDERABLES Performing Organization Address City/State/ZIP Code Phon e Number [address] Magnesium (07/05/2017 4:55 PM EST) P athologist Signature Magnesium 0.78 0.69 - 1.07 [facility] mmol/L [facility] LABORATORY Specimen Anatomical Collection Method Collection Time Receive d Time (Source) Location / / Volume Laterality Blood specimen 07/05/2017 4:55 PM 017 5:24 (specimen) EST PM EST Resulting Agency Comment Spec In Lab Daphne Shahid MD CHEMISTRY ORDERABLES Performing Organization Address City/[facility]/[place] [address] (ABNORMAL) Basic Metabolic Panel (non-fasting) (07/05/2017 4:55 PM EST) P athologist Signature Glucose Lvl 230 (H) 65 - 199 [facility] mg/dL [facility] LABORATORY [...] or in patients with acute kidney failure. [email or web address] Specimen Anatomical Collection Method Collection Time Receive d Time (Source) Location / / Volume Laterality Blood specimen 07/05/2017 4:55 PM 017 5:24 (specimen) EST PM EST Resulting Agency Comment Spec In Lab Daphne Shahid MD CHEMISTRY ORDERABLES Performing Organization Address City/[facility] Code Phon e Number [address] (ABNORMAL) APTT (07/05/2017 [...] Shahid MD HEMATOLOGY ORDERABLES Performing Organization Address City/[facility] [place] [address] (ABNORMAL) POCT Glucose (07/05/2017 4:53 PM EST) P athologist Signature POC Glucose 208 (H) 65 - 199 [facility] mg/dL [facility] LABORATORY [...] City/State/ZIP Code Phon e Number [place] [phone]OSP[address] EKG 12 Lead (07/05/2017 4:32 PM EST) Component Value Ref Range Test Analysis Performed Pathologis t Method Time At Signature Ventricular rate 97 BPM MUSE SYSTEM Atrial Rate 97 BPM MUSE SYSTEM P-R Interval 148 ms MUSE SYSTEM QRS Duration 96 ms MUSE SYSTEM Q-T Interval 364 ms MUSE SYSTEM QTC Calculated 462 ms MUSE SYSTEM (Bezet) Calculated P [place] 48 degrees MUSE SYSTEM Calculated R [place] -33 degrees MUSE SYSTEM Calculated T [place] 98 degrees MUSE SYSTEM INTERPRETATION Normal sinus [...] unspecified type of vessel, pauma or graft Cardiomyopathy, ischemic Other specified forms [...] post-op day 1 in the AM Give ND if unable to take PO, Routine Given [...] in dextrose 5% 250 mL EST infusion (RUBBER MILL TENDER) CONTINUOUS PRN, Starting on Wed07/05/17 at 1837, [...] post-op day 1 in the AM Give ND if unable to take PO, Routine atorvastatin [...] parameters not met)0400 (Not Given - Provider: aCrmen Berry RN [...] Jones, VAMSI) 0922 (Given - Provider: Myrna Yuong RN) 20 mEq, Oral, DAILY, First dose [...] post-op day 1 in the AM Give ND if unable to take PO
Routine Group [...]
Routine documented in this encounter Care Teams Pot Sander Relationship Specialty Start Date End Date Lovely Vicente MD PCP - General 04/16/[address] [place] [address] [address] [place] [address] documented as of this encounter
--- OUTSIDE RECORDS SUMMARY | 2022-05-15 08:31 | XMS_ITS | Encounter Summary ---
:1945 Author Organization [facility] [place] [address] Care Team Providers Name Role Phone Lovely Vicente MD Primary Care Provider Reason for Visit Reason Onset Date Comments Medication Refill 06/19/2016 Encounter Details Date Type Department Care Team Description 06/19/2016 Refill Endocrinology at [facility] Luz Stallings MD [facility] [place] [address] ENDOCRINOLOGY DEPT [phone] [place], [place] [address] (Wo rk) Social History [...] MD [facility] er Dr [place] [address] (Wo rk) 05/28/2022 Laboratory Appointment Lab 05/28/2022 Office Visit Cardiology Zulma Dolan MD [facility] [place] [address] [facility] [place] [address] 06/10/2022 Office Visit Dermatology Laura Scherer MD [facility] DR [address] [place], [place] [address] (Wo rk) documented as of this encounter Visit Diagnoses Not on filedocumented in this encounter Care Teams Erection Shop Supervisor Relationship Specialty Start Date End Date Lovely Vicente MD PCP - General 04/16/[address] [place], [place] [address] documented as of this encounter
--- OUTSIDE RECORDS SUMMARY | 2022-05-15 08:31 | XMS_ITS | Encounter Summary ---
:1945 Author Organization [facility] [place] [address] Care Team Providers Name Role Phone Som Holliday APRN Primary Care Provider Encounter Details Date Type Department Care Team Description 04/11/2014 Procedure visit Gastroenterology at [facility], CONV Esophageal reflux [facility] Luz Winchester RN (Primary Dx) [place] [address] Social History Tobacco Use Types Packs/Day Years Used Date Former Smoker Alcohol Use Standard Drinks/Week Comments No 0 (1 standard drink = 0.6 oz pure alcoho l) Sex Assigned at Date Recorded Not on file documented as of this encounter Progress Notes Adalid Can MD - 04/13/2014 3:43 PM EDT ESOPHAGEAL MANOMETRY Don Fatima Male, 69 yrs, 1945 PCP: SOM HOLLIDAY WIRE SPOOLER: NONE STUDY DATE: 04/11/14 PROVIDER: [place] ([id number]) INDICATION Reflux; preoperative evaluation. METHODS Stationary esophageal manometry was performed with the [employer] esophageal motility system utilizing the Polygram software [...] of the esophagus. Adalid Can, PhD, MD mushroom grower, [facility] Section of Gastroenterology and Hepatology [facility] [place] [address] V: [phone] F: [phone] [facility]/gabriela CC/EC: PCP - staff msg copy 04/13/14 Henrique Taylor MD - fax copy 04/13/14 Luz Keller RN - 04/11/2014 8:14 AM EDT Esophageal manometry performed without difficulty and Was well tolerated. documented in this encounter Plan of Treatment Upcoming Encounters Date Type Specialty Care Team Description 05/28/2022 Appointment Cardiology Zulma Dolan MD [facility] [place] [address] (Wo rk) 05/28/2022 Laboratory Appointment Lab 05/28/2022 Office Visit Cardiology Zulma Dolan [place] [address] Liz Poole PA [facility] [place] [address] 06/10/2022 Office Visit Dermatology Laura Scherer MD [facility] DR [address] [place], [place] [address] (Wo rk) documented as of this encounter Visit Diagnoses Diagnosis Esophageal reflux - Primary documented in this encounter Care Teams Computer Operations Supervisor Relationship Specialty Start Date End Date Som Holliday APRN PCP - General 01/25/13 04/15/[address] [place] [address] documented as of this encounter
--- OUTSIDE RECORDS SUMMARY | 2022-05-15 08:31 | XMS_ITS | Encounter Summary ---
:1945 Author Organization [facility] [place] [address] Care Team Providers Name Role Phone MiyaLokeshAngela STACIE Primary Care Provider Encounter Details Date Type Department Care Team Description 04/04/2013 Orders Only General Surgery at [facility] Mcknight thyroid [facility] MD Eliseo carcinoma (Primary Dx) [facility] [place] [address] GENERAL SURGERY [phone] [place], [place] [address] Social History Tobacco Use Types [...] Dolan MD [facility] er [place], [place] [address] (Wo rk) 05/28/2022 Laboratory Appointment Lab 05/28/2022 Office Visit Cardiology Zulma Dolan MD [facility] [place] [address] Liz Poole PA [facility] [place] [address] 06/10/2022 Office Visit Dermatology Laura Scherer MD [facility] [address] [place], [place] [address] (Wo rk) documented as of this encounter Visit Diagnoses Diagnosis Papillary thyroid carcinoma - Primary Malignant neoplasm of thyroid gland documented in this encounter Care Teams Order Builder Relationship Specialty Start Date End Date Angela Holliday APRN PCP - General 01/25/13 04/15/[address] [place] [place] [address] documented as of this encounter
--- OUTSIDE RECORDS SUMMARY | 2022-05-15 08:31 | XMS_ITS | Encounter Summary ---
:1945 Author Organization [facility] [place] [address] Care Team Providers Name Role Phone Lovely Vicente MD Primary Care Provider Encounter Details Date Type Department Care Team Description 07/10/2016 Telephone Dermatology at [facility] Rigoberto White III, [address] [place] [address] [facility] [phone] [facility] MARIE-DERMAT [place], [place] [address] (Wo rk) Social History Tobacco [...] Dolan MD [facility] Dr [place], [place] [address] (Wo rk) 05/28/2022 Laboratory Appointment Lab 05/28/2022 Office Visit Cardiology Zulma Dolan [place] [facility] [place] [address] Liz Poole PA [facility] [place] [address] 06/10/2022 Office Visit Dermatology Laura Scherer MD [facility] DR TEJA MARIE-DERMAT [place], [place] [address] (Wo rk) documented as of this encounter Visit Diagnoses Not on filedocumented in this encounter Care Teams House Decorator Relationship Specialty Start Date End Date Lovely Vicente MD PCP - General 04/16/15 [facility] [address] [place] [address] documented as of this encounter
--- OUTSIDE RECORDS SUMMARY | 2022-05-15 08:31 | XMS_ITS | Encounter Summary ---
:1945 Author Organization [facility] [place] [address] Care Team Providers Name Role Phone Lovely Vicente MD Primary Care Provider Reason for Visit Reason Comments Medication Refill Encounter Details Date Type Department Care Team Description 05/10/2015 Refill Endocrinology at [facility] Rosalind Covarrubias, [facility] [place] [address] [facility] [phone] ENDOCRINOLOGY [place], [place] [address] (Wo rk) Social History Tobacco [...] Zulma Dolan MD [facility] er [place], [place] [address] (Wo rk) 05/28/2022 Laboratory Appointment Lab 05/28/2022 Office Visit Cardiology Zulma Dolan MD [facility] [place] [address] Liz Poole PA [facility] [place] [address] 06/10/2022 Office Visit Dermatology Laura Scherer MD [facility] ER [address] [place], [place] [address] (Wo rk) documented as of this encounter Visit Diagnoses Not on filedocumented in this encounter Care Teams Program Or Project Administrator Relationship Specialty Start Date End Date Lovely Vicente MD PCP - General 04/16/[address] [place] [address] documented as of this encounter
--- OUTSIDE RECORDS SUMMARY | 2022-05-15 08:31 | XMS_ITS | Encounter Summary ---
:1945 Author Organization [facility] [place] [address] Care Team Providers Name Role Phone Lovely Vicente MD Primary Care Provider Encounter Details Date Type Department Care Team Description 09/03/2016 Office Visit Endocrinology at [facility] Maria Ines Stallings of [facility] MD [place] [address] [place] [address] ENDOCRINOLOGY DEPT [place], [place] [address] Social History Tobacco Use Types [...] to his magnesium pill. LUZ PRESCOTT MD Associate Accountantspar cap beveler Section of Endocrinology [facility] Luz Prescott MD - 09/03/2016 11:30 AM [...] sonographic evidence of recurrence. LUZ PRESCOTT MD Associate Accountantspar cap beveler Section of Endocrinology [facility] documented in this encounter Plan of Treatment Upcoming Encounters Date Type Specialty Care Team Description 05/28/2022 Appointment Cardiology Zulma Dolan MD [facility] [address] [place], [place] [address] (Wo rk) 05/28/2022 Laboratory Appointment Lab 05/28/2022 Office Visit Cardiology Zulma Dolan MD [facility] [place] [address] Liz Poole PA [facility] [place] [address] 06/10/2022 Office Visit Dermatology Laura Scherer MD [facility] DR [address] [place], [place] [address] (Wo rk) documented as of this encounter Results Thyroglobulin (09/07/2017 2:41 PM EST) P athologist Signature Thyroglobulin 1.4 <=54.9 [place] RYAN ng/mL [facility] Comment: Thyroglobulin levels may be unreliable a nd falsely low in TgAb positive samples (TgAb <20 is consistent with TgAb negati vity). If Tg Antibodies are present an alternative Tg assay performed via mass spectrometry may be indicated. ??A clinical cutoff of <2.0 ng/ml should be used for athyrotic individuals. Pediatric reference ranges have not been established. Assay performed using the MD Revolution Immulite T g immunometric assay (lowest detection [...] Prescott MD CHEMISTRY ORDERABLES Performing Organization Address City/[facility]/ZIP Code Phon e Number [address] TSH (09/07/2017 2:41 PM EST) athologist Signature TSH 3.93 0.27 - 4.20 [facility] ml[facility]ML [facility] Specimen Anatomical Collection Method Collection Time Receive d Time (Source) Location / / Volume Laterality Blood specimen 09/07/2017 2:41 PM 018 2:46 (specimen) EST PM EST Resulting Agency Comment Spec In Lab Luz Prescott MD CHEMISTRY ORDERABLES Performing Organization Address City/[facility] Phon e Number [address] Thyroglobulin (09/03/2016 11:07 AM EST) athologist Signature Thyroglobulin <0.4 <=54.9 [facility] ng/mL [facility] Comment: Interpret with caution. Tg [...] than those obtained with T4 withdrawal protocol ([place] BR et al. J Clin Endo Metab 1999;84:6060-9299). Assay performed using the DPC Immulite T [...] Prescott MD CHEMISTRY ORDERABLES Performing Organization Address City/[facility]/ZIP Code Phon e Number [address] TSH (09/03/2016 11:07 AM EST) P athologist Signature TSH 3.01 0.27 - 4.20 [facility] mcIU/mL [facility] Specimen Anatomical Collection Method Collection Time Receive d Time (Source) Location / / Volume Laterality Blood specimen 09/03/2016 11:07 7 (specimen) AM EST 11:22 AM EST Resulting Agency Comment Spec In Lab Luz Prescott MD CHEMISTRY ORDERABLES Performing Organization Address City/[facility]/[place] [address] documented in this encounter Visit Diagnoses Diagnosis Hx of papillary thyroid carcinoma Personal history of malignant neoplasm o f thyroid documented in this encounter Care Teams Schedule Analyst Relationship Specialty Start Date End Date Lovely Vicente MD PCP - General 04/16/[address] [place] [address] documented as of this encounter
--- OUTSIDE RECORDS SUMMARY | 2022-05-15 08:31 | XMS_ITS | Encounter Summary ---
:1945 [place] [address] Care Team Providers Name Role Phone Lovely Vicente MD Primary Care Provider Reason for Visit Reason Onset Date Comments Other 12/09/2016 RESULTS Encounter Details Date Type Department Care Team Description 12/09/2016 Telephone Dermatology at [facility] Halima Cadet MD Other (RESULTS) [address] [facility] [place] [address] [facility] [phone] [place], [place] [address] (Wo rk) Social History Tobacco [...] EDT Spoke with patient's , Kisha (personal registered representative). I advised her Don's pathology results [...] back. She can be reached back at [phone] documented in this encounter Plan of Treatment Upcoming Encounters Date Type Specialty Care Team Description 05/28/2022 Appointment Cardiology Zulma Dolan MD [facility] [address] [place], [place] [address] (Wo rk) 05/28/2022 Laboratory Appointment Lab 05/28/2022 Office Visit Cardiology Zulma Dolan [place] [facility] [place] [address] Liz Poole PA [facility] [place] [address] 06/10/2022 Office Visit Dermatology Laura Scherer MD [facility] DR [address] [place], [place] [address] (Wo rk) documented as of this encounter Visit Diagnoses Not on filedocumented in this encounter Care Teams Seeing Eye Dog Teacher Relationship Specialty Start Date End Date Lovely Vicente MD PCP - General 04/16/[address] [place] [address] documented as of this encounter
--- OUTSIDE RECORDS SUMMARY | 2022-05-15 08:31 | XMS_ITS | Encounter Summary ---
:1945 Author Organization [facility] Address [address] [place] [address] Care Team Providers Name Role Phone Lovely Vicente MD Primary Care Provider Reason for Visit Reason Comments Skin Check Encounter Details Date Type Department Care Team Description 11/05/2015 Office Visit Dermatology at [facility] benign nevi; Abdelrahman HOOPER MD Lentigines; [address] [facility] History of melanoma; [place] [address] Skin exam for malignant neoplasm [phone] [facility]-DER[facility] [place], [place] [address] Social History Tobacco Use Types [...] Diagnostic, Drum (ACCU-CHEK COMPACT TEST) Strip by [facility].(Non- Drug; Combo Route) route 2 times daily. [...] the presence of Dr. Garcia.: GINNY CHRISTIANSEN MIXING ENGINEER and Judit Cruz, Clinical Scribe I performed the above scribed service and agree with the accuracy of the documentation in this encounter. Rigoberto Garcia MD Section of Dermatology [facility] documented in this encounter Plan of Treatment Upcoming Encounters Date Type Specialty Care Team Description 05/28/2022 Appointment Cardiology Zulma Dolan MD [facility] [address] [place], [place] [address] (Wo rk) 05/28/2022 Laboratory Appointment Lab 05/28/2022 Office Visit Cardiology Zulma Dolan MD [facility] [place] [address] Liz Poole PA [facility] [place] [address] 06/10/2022 Office Visit Dermatology Laura Scherer MD [facility] DR TEJA GR-DERMAT [place], [place] [address] (Wo rk) documented as of this encounter Visit Diagnoses Diagnosis Multiple benign nevi Benign neoplasm of skin, site unspecifie d Lentigines Other dyschromia History of melanoma Personal history of malignant melanoma o f skin Skin exam for malignant neoplasm Screening for malignant neoplasm of the skin documented in this encounter Care Teams Blueprint Maker Relationship Specialty Start Date End Date Lovely Vicente MD PCP - General 04/16/15 [facility] [address] [place] [address] (work) documented as of this encounter
--- OUTSIDE RECORDS SUMMARY | 2022-05-15 08:31 | XMS_ITS | Encounter Summary ---
:1945 Author Organization [facility] [place] [address] Care Team Providers Name Role Phone MiyaAngela STACIE Primary Care Provider Encounter Details Date Type Department Care Team Description 04/26/2014 Office Visit Endocrinology at [facility] Albertina Palmer, Papillary thyroid [facility] [place] [address] CENTER [phone] ENDOCRINOLOGY DEPT [place] [address] Social History Tobacco Use Types Packs/Day Years [...] [place]. Rosalind Palmer Endocrine Staff Physician [facility] Rosalind Palmer MD - 04/26/2014 8:39 AM [...] yr Rosalind Palmer Endocrine Staff Physician [facility] documented in this encounter Plan of Treatment Upcoming Encounters Date Type Specialty Care Team Description 05/28/2022 Appointment Cardiology Zulma Dolan MD [facility] [address] [place], [place] [address] (Wo rk) 05/28/2022 Laboratory Appointment Lab 05/28/2022 Office Visit Cardiology Zulma Dolan MD [facility] [place] [address] Liz Poole PA [facility] [place] [address] 06/10/2022 Office Visit Dermatology Laura Scherer MD [facility] DR TEJA GR-[place], [place] [address] (Wo rk) documented as [...] athologist Signature Thyroglobulin <0.4 <=54.9 CERNER ng/mL [facility] Comment: Interpret with caution. Tg levels [...] BR et al. J Clin Endo Metab 1999;84:6579-1083). Assay performed using the DPC Immulite T [...] Address City/State/ZIP Code Phon e Number [address] CERNER MILLENNIUM (ABNORMAL) TSH (04/26/2014 9:07 AM EDT) P athologist Signature TSH 4.46 (H) 0.27 - 4.20 CERNER mcIU/mL MILLENNIUM Specimen Anatomical Collection Method Collection Time Receive d Time (Source) Location / / Volume Laterality Blood specimen 04/26/2014 9:07 AM 014 9:12 (specimen) EDT AM EDT Resulting Agency Comment Spec In Lab Rosalind Palmer MD CHEMISTRY ORDERABLES Performing Organization Address City/[facility]/ZIP Code Phon e Number [address] CERNER MILLENNIUM documented in this encounter Visit Diagnoses Diagnosis Papillary thyroid carcinoma Malignant neoplasm of thyroid gland documented in this encounter Care Teams Business Planning Analyst Relationship Specialty Start Date End Date Angela Holliday APRN PCP - General 01/25/13 04/15/[address] [place] [address] documented as of this encounter
--- OUTSIDE RECORDS SUMMARY | 2022-05-15 08:31 | XMS_ITS | Encounter Summary ---
:1945 Author Organization [facility] [place] [address] Care Team Providers Name Role Phone Angela Holliday STACIE Primary Care Provider Encounter Details Date Type Department Care Team Description 04/04/2013 Telephone Urology at [facility] Parker Sanchez [place] [address] UROLOGY DEPT [phone] [place], [place] [address] (Wo rk) Social History Tobacco [...] Dolan MD [facility] Dr [place], [place] [address] (Wo rk) 05/28/2022 Laboratory Appointment Lab 05/28/2022 Office Visit Cardiology Zulma Dolan MD [facility] [place] [address] Liz oPole PA [facility] [place] [address] 06/10/2022 Office Visit Dermatology Laura Scherer MD [facility] DR TEJA GR-DERMAT [place], [place] [address] (Wo rk) documented as of this encounter Visit Diagnoses Not on filedocumented in this encounter Care Teams Keypunch Operator Relationship Specialty Start Date End Date Angela Holliday APRN PCP - General 01/25/13 04/15/[address] [place] [address] documented as of this encounter
--- OUTSIDE RECORDS SUMMARY | 2022-05-15 08:31 | XMS_ITS | Encounter Summary ---
:1945 Author Organization [facility] [place] [address] Care Team Providers Name Role Phone MiyaAngela STACIE Primary Care Provider Reason for Visit Reason Onset Date Comments Advice Only 03/31/2013 Encounter Details Date Type Department Care Team Description 03/31/2013 Telephone Urology at [facility] Daniele Trejo III, MD Advice Only [facility] [place] [address] [place] [id number] [phone] (Wo rk) Social History Tobacco Use Types [...] Zulma Dolan MD [facility] [place], [place] [address] (Wo rk) 05/28/2022 Laboratory Appointment Lab 05/28/2022 Office Visit Cardiology Zulma Dolan MD [facility] [place] [address] Liz Poole PA [facility] [place] [address] 06/10/2022 Office Visit Dermatology Laura Scherer MD [facility] [address] GR[place], [place] [address] (Wo rk) documented as of this encounter Visit Diagnoses Not on filedocumented in this encounter Care Teams Draw String Knotter Relationship Specialty Start Date End Date Angela Holliday APRN PCP - General 01/25/13 04/15/[address] [place] [address] documented as of this encounter
--- OUTSIDE RECORDS SUMMARY | 2022-05-15 08:31 | XMS_ITS | Encounter Summary ---
:1945 Author Organization [facility] [address] Care Team Providers Name Role Phone Angela Sotelo APRN Primary Care Provider Encounter Details Date Type Department Care Team Description 01/16/2014 Surgery Gastroenterology at [facility] Nohemi Jaimes, COLONOSCOPY, [facility] Jorge mcnamara MD [place], [place] [address] [facility] ([facility] [phone] DR Cintron) GASTROENTEROLOGY DEPT. [place], [place] [address] Social History Tobacco Use Types [...] you need to be checked. [facility] [phone] 8a-5p Same Day Endo [phone] 7a-8p Otherwise contact [phone] and ask to speak to the project manager process development inspection clerk Follow up care is a shelton [...] - 01/16/2014 9:49 AM EDT [facility] Operative Note Patient Name: Gregory Fatima : [id number] MR#: [id number] Case Date: 01/16/2014 Surgeon: Surgeon(s) and Role: * Nohemi Jaimes MD - Primary Preoperative diagnosis: 5 yr surv. Full procedure note is documented under the Procedure section of eDH. documented in this encounter Plan of Treatment Upcoming Encounters Date Type Specialty Care Team Description 05/28/2022 Appointment Cardiology Zulma Dolan MD [facility] [address] [place] [address] (Wo rk) 05/28/2022 Laboratory Appointment Lab 05/28/2022 Office Visit Cardiology Zulma Dolan MD [facility] [place] [address] Liz Poole PA [facility] [place] [address] 06/10/2022 Office Visit Dermatology Laura Scherer MD [facility] DR [address] GR[place] [address] (Wo rk) documented as of this encounter [...] Surgical Pathology Report (01/16/2014 9:53 AM EDT) [facility] Method Time Signature Surgical CERNER Pathology ? [facility] Report ? Provider: ?? SHREE, NOHEMI Gonzalez ?Pt. Name: ?? MALICKA RT, GREGORY E ? Acc #: ?[id number] ?Pt. MRN: ?[id number] ? Col Date: ?? 4 ? /Sex: [...] City/State/ZIP Code Phon e Number [place] [phone] RAKESH WALKER Specimen to [...] [facility]/[place] [address] CERNER MILLENNIUM Specimen to [...] MD PATHOLOGY/CYTOLOGY ORDERABLE S Performing Organization Address [facility] [place] [address] CERNER MILLENNIUM COLONOSCOPY (01/16/2014 7:25 AM EDT) [facility] gist Method Time Signature COLONOSCOPY [facility] PROVATION Endoscopy Patient Name: Gregory Fatima ? Procedure Date: 01/16/2014 7:25 AM ? N: [id number] ? Date of : 1945 ? Age: 68 ? Order #: [id number] ? Procedure: ? Colonoscopy Indications: ? High [...] Laterality 01/16/2014 7:25 AM EDT Angela Sotelo GRADES 1 THRU 5 TEACHER GENERAL SURGICAL ORDERABLES Performing Organization Address [...] Routine documented in this encounter Care Teams Bat Person Relationship Specialty Start Date End Date Angela Sotelo APRN PCP - General 01/25/13 04/15/15 [address] [place] [address] documented as of this encounter
--- OUTSIDE RECORDS SUMMARY | 2022-05-15 08:31 | XMS_ITS | Encounter Summary ---
:1945 Author Organization [facility] [place] [address] Care Team Providers Name Role Phone Lovely Vicente MD Primary Care Provider Reason for Visit Reason Comments Skin Check Encounter Details Date Type Department Care Team Description 06/05/2016 Office Visit Dermatology at [facility] istory of melanoma; Abdelrahman HOOPER MD Seborrheic keratosis; [address] [facility] [place] (actinic keratosis); [place] [address] Multiple nevi; [phone] [facility] [address]-DERMATOLGY [place], [place] [address] Social History Tobacco Use Types [...] Zulma Dolan MD [facility] [place], [place] [address] (Wo rk) 05/28/2022 Laboratory Appointment Lab 05/28/2022 Office Visit Cardiology Zulma Dolan MD [facility] [place] [address] Liz Poole PA [facility] [place] [address] 06/10/2022 Office Visit Dermatology Laura Scherer MD [facility] DR [address] GR-DERMAT [place], [place] [address] (Wo rk) documented as of this encounter Visit Diagnoses Diagnosis History of melanoma Personal history of malignant melanoma o f skin Seborrheic keratosis Other seborrheic keratosis [place] (actinic keratosis) Actinic keratosis Multiple nevi Benign neoplasm of skin, site unspecifie d Scar Scar condition and fibrosis of skin documented in this encounter Care Teams Parole Board Member Relationship Specialty Start Date End Date Lovely Vicente MD PCP - General 04/16/[address] [place] [address] documented as of this encounter
--- OUTSIDE RECORDS SUMMARY | 2022-05-15 08:31 | XMS_ITS | Encounter Summary ---
:1945 Author Organization [facility] [place] [address] Care Team Providers Name Role Phone Angela Holliday APRN Primary Care Provider Reason for Visit Reason Comments Other Encounter Details Date Type Department Care Team Description 08/01/2013 Telephone Dermatology at [facility] Rigoberto Garcia III, [address] [place] [address] [facility] [phone] TEJA MARIE-DERMAT [place], [place] [address] (Wo rk) Social History [...] III Pt. Name: DON HOANG Acc #: [id number] Pt. 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 CR-0 08/01/13 BJM 08/01/13 Verified by: Ian STRANGE, PhD, [facility] Dermatopathologist (Electronic Signature) The attending pathologist [...] [facility] [place], [place] [address] (Wo lissa) 05/28/2022 Laboratory Appointment Lab 05/28/2022 Office Visit Cardiology Zulma Dolan MD [facility] [place] [address] Liz Poole PA [facility] [place] [address] 06/10/2022 Office Visit Dermatology Laura Scherer MD [facility] DR TEJA MARIE-DERMAT [place], [place] [address] (Wo rk) documented as of this encounter Visit Diagnoses Not on filedocumented in this encounter Care Teams Immigration Attorney Relationship Specialty Start Date End Date Angela Holliday APRN PCP - General 01/25/13 04/15/[address] [place] [address] documented as of this encounter
--- OUTSIDE RECORDS SUMMARY | 2022-05-15 08:31 | XMS_ITS | Encounter Summary ---
:1945 Author Organization [facility] [place] [address] Care Team Providers Name Role Phone MiyaAngela STACIE Primary Care Provider Reason for Visit Reason Comments Post Op voiding trial Encounter Details Date Type Department Care Team Description 04/05/2013 Office Visit Urology [place] [facility] Darryl Egan, UTI ([facility] MD tract infection) [facility] (Primary Dx) [place] [address] UROLOGY DEPT [phone] [place], [place] [address] Social History Tobacco Use [...] Description 05/28/2022 Appointment Cardiology Zulam Dolan MD [facility] [place], [place] [address] (Wo rk) 05/28/2022 Laboratory Appointment Lab 05/28/2022 Office Visit Cardiology Zulma Dolan MD [place] [address] Liz Poole PA [facility] [place] [address] 06/10/2022 Office Visit Dermatology Laura Scherer MD [facility] DR TEJA GR-DERMAT [place], [place] [address] (Wo rk) documented as [...] Component Value Ref Test Analysis Performed At [facility] Method Time Signature Urine Culture CERNER ? Patient Name: GREGORY HOANG ? Ordered By: DARRYL EGAN [facility] ? MR#: [id number] ?LOC: ??5B ? /Sex: ??1945 (68 years), [...] S ? Patient: GREGORY HOANG ? MR#: [id number] ? FOOTNOTES ? (1) ? This organism [...] Organization Address City/State/[place] [address] RAKESH WALKER documented in this encounter Visit Diagnoses Diagnosis UTI (lower urinary tract infection) - Pr imary Urinary tract infection, site not specif ied documented in this encounter Care Teams Warehouse Selector Relationship Specialty Start Date End Date Angela Holliday APRN PCP - General 01/25/13 04/15/[address] [place] [address] documented as of this encounter
--- OUTSIDE RECORDS SUMMARY | 2022-05-15 08:31 | XMS_ITS | Encounter Summary ---
:1945 Author Organization [facility] [place] [address] Care Team Providers Name Role Phone Lovely Vicente MD Primary Care Provider Reason for Visit Reason Comments Skin Check Encounter Details Date Type Department Care Team Description 04/16/2015 Follow-Up Dermatology at [facility] x of melanoma of skin; Abdelrahman HOOPER MD Multiple benign nevi [address] [place] [address] [facility]DER[facility] [place], [place] [address] (Wo rk) Social History [...] Diagnostic, Drum (ACCU-CHEK COMPACT TEST) Strip by [facility].(Non- Drug; Combo Route) route 2 times daily. [...] MD [facility] [place], [place] [address] (Wo rk) 05/28/2022 Laboratory Appointment Lab 05/28/2022 Office Visit Cardiology Zulma Dolan MD [facility] [place] [address] Liz Poole PA [facility] [place] [address] 06/10/2022 Office Visit Dermatology Laura Scherer MD [facility] [address] TE[address] GR-DERMAT [place], [place] [address] (Wo rk) documented as of this encounter Visit Diagnoses Diagnosis Hx of melanoma of skin Personal history of malignant melanoma o f skin Multiple benign nevi Benign neoplasm of skin, site unspecifie d documented in this encounter Care Teams Painter Ordnance Relationship Specialty Start Date End Date Lovely Vicente MD PCP - General 04/16/[address] [place] [address] [address] [place] [address] documented as of this encounter
--- OUTSIDE RECORDS SUMMARY | 2022-05-15 08:31 | XMS_ITS | Encounter Summary ---
:1945 Author Organization [facility] [place] [address] Care Team Providers Name Role Phone Lovely Vicente MD Primary Care Provider Encounter Details Date Type Department Care Team Description 11/28/2016 Telephone Dermatology at [facility] Rigoberto Garcia III, [address] [place] [address] [facility] [phone] [facility] SIMÓN-DERMAT [place], [place] [address] (Wo rk) Social History Tobacco [...] provider. Rigoberto Garcia MD Section of Dermatology [facility] documented in this encounter Plan of Treatment Upcoming Encounters Date Type Specialty Care Team Description 05/28/2022 Appointment Cardiology Zulma Dolan MD [facility] [address] [place], [place] [address] (Wo rk) 05/28/2022 Laboratory Appointment Lab 05/28/2022 Office Visit Cardiology Zulma Dolan MD [facility] [place] [address] Liz Poole PA [facility] [place] [address] 06/10/2022 Office Visit Dermatology Laura Scherer MD [facility] DR TEJA MARIE-DERMAT [place], [place] [address] (Wo rk) documented as of this encounter Visit Diagnoses Not on filedocumented in this encounter Care Teams Semiconductor Testing Group Leader Relationship Specialty Start Date End Date Lovely Vicente MD PCP - General 04/16/[address] [place] [address] documented as of this encounter
--- OUTSIDE RECORDS SUMMARY | 2022-05-15 08:32 | XMS_ITS | Encounter Summary ---
:1945 Author Organization [facility] [place] [address] Care Team Providers Name Role Phone Angela Holliday APRN Primary Care Provider Encounter Details Date Type Department Care Team Description 03/15/2013 Telephone General Surgery at [facility] Maddison Key, [place] [address] Social History Tobacco Use Types Packs/Day [...] Zulma Dolan MD [facility] [place], [place] [address] (Wo rk) 05/28/2022 Laboratory Appointment Lab 05/28/2022 Office Visit Cardiology Zulma Dolan MD [facility] [place] [address] Liz Poole PA [facility] [place] [address] 06/10/2022 Office Visit Dermatology Laura Scherer MD [facility] DR TE[address] GR-DERMAT [place], [place] [address] (Wo rk) documented as of this encounter Visit Diagnoses Not on filedocumented in this encounter Care Teams Sales Incentive Analyst Relationship Specialty Start Date End Date Angela Holliday APRN PCP - General 01/25/13 04/15/[address] [place] [address] documented as of this encounter
--- OUTSIDE RECORDS SUMMARY | 2022-05-15 08:32 | XMS_ITS | Encounter Summary ---
:1945 [place] [address] Care Team Providers Name Role Phone Holley Hollidayica STACIE Primary Care Provider Encounter Details Date Type Department Care Team Description 03/28/2013 - [facility]/29/2013 Barbara Gomes MD Dx) [facility] [address] [place] [address] [phone] Social History Tobacco Use Types Packs/Day Years [...] please call the General Surgery nurse at [phone], since this may mean that you need morecalcium. Follow-up Appointment: Will be scheduled with Dr. Mcknight in 6 weeks Date and time as well as any required labs will be mailed to you Please call [phone] to confirm date and time of your [...] by calcium supplementation. Phone number for questions: [phone] before 5 PM weekdays [phone] after 5 PM and on weekends/holidays Please follow up with Urology as per their recommendations for Bob removal AttachmentsThe following attachments cannot be sent through Care Everywhere. THYROIDECTOMY: WHAT TO EXPECT AT HOME (JAMAICAN)URINARY CATHETER CARE: AFTER YOUR VISIT ([place])documented in this encounter Medications at Time of [...] is a 68 y.o. male presents to [facility] today for total thyroidectomy. See full [...] Willams MD - 03/28/2013 3:43 PM EDT [facility] Operative Note Patient Name: Gregory Fatima : [id number] MR#: [id number] Case Date: 03/28/2013 Surgeon: Surgeon(s) and Role: [...] patient was extubated and taken to the [facility] in stable condition. At the end [...] Operative Note Patient Name: Gregory Fatima : [id number] MR#: [id number] Case Date: 03/28/2013 Surgeon: Surgeon(s) and Role: [...] Dolan MD [facility] er Dr [place] [address] (Wo rk) 05/28/2022 Laboratory Appointment Lab 05/28/2022 Office Visit Cardiology Zulma Dolan MD [facility] I[place] [address] Liz Poole PA [facility] [place] [address] 06/10/2022 Office Visit Dermatology Laura Scherer MD [facility] ER DR TEJA GR-DERMAT [place] [address] (Wo rk) documented as of this encounter [...] Organization Address City/State/[place] [address] CERNER MILLENNIUM (ABNORMAL) POCT [...] [facility]/[place] [address] CERNER MILLENNIUM (ABNORMAL) POCT [...] [facility]/ZIP Code Phon e Number [address] CERNER MILLENNIUM (ABNORMAL) POCT [...] [facility]/ZIP Code Phon e Number [address] CERNER MILLENNIUM (ABNORMAL) POCT [...] [facility]/ZIP Code Phon e Number [address] CERNER MILLENNIUM (ABNORMAL) POCT [...] [facility]/ZIP Code Phon e Number [address] CERNER MILLENNIUM (ABNORMAL) POCT [...] [facility]/ZIP Code Phon e Number [address] CERNER MILLENNIUM (ABNORMAL) POCT [...] [facility]/ZIP Code Phon e Number [address] [facility] Specimen to Pathology (surgical or derm) [...] [facility]/ZIP Code Phon e Number [address] [facility] Pathology Addendum Report (03/28/2013 12:03 PM EDT) Component Value Ref Test Analysis Performed At [facility] gist Range Method Time Signature Addendum CERNER Report ? [facility] ? Provider: ?? MESHA MCKNIGHT Pt. Name: ?? GREGORY FATMIA ? Acc #: ?[id number] ?Pt. MRN: ?[id number] ? Col Date: ?? 03/28/2013 ?/Sex: ?1945,(68 [...] Organization Address City/State/[place] [address] [facility] Surgical Pathology Report (03/28/2013 12:03 PM EDT) Component Value Ref Test Analysis Performed At [facility] gist Range Method Time Signature Surgical [facility] Pathology ? [facility] Report ? Provider: ?? MESHA MCKNIGHT Pt. Name: ?? GREGORY FATIMA ? Acc #: ?[id number] ?Pt. MRN: ?[id number] ? Col Date: ?? 03/28/2013 ?/Sex: ?1945,(68 [...] hemorrhage and ? calcifications. ? [facility] ? Provider: ?? MESHA MCKNIGHT Pt. Name: ?? GREGORY FATIMA ? Acc #: ?[id number] ?Pt. MRN: ?[id number] ? Col Date: ?? 03/28/2013 ?/Sex: ?1945,(68 years),Male ? Rec Date: ?? 03/28/2013 ?LOC: ?[facility] ? SURGICAL PATHOLOGY ? SECTIONS/PROCESSING: Mounter Clarinets sections are subm itted. (R6) ? B [...] Organization Address City/State/[place] [address] CERNER MILLENNIUM Frozen Section Report (03/28/2013 12:03 PM EDT) Component Value Ref Test Analysis Performed At [facility] gist Range Method Time Signature Frozen CERNER Section ? [facility] Report ? Provider: ?? MESHA MCKNIGHT Pt. Name: ?? GREGORY FATIMA ? Acc #: ?[id number] ?Pt. MRN: ?[id number] ? Col Date: ?? 03/28/2013 ?/Sex: ?1945,(68 [...] [facility]/[place] [address] CERNER MILLENNIUM POCT Glucose [...] [facility]/ZIP Code Phon e Number [address] CERNER MILLENNIUM Specimen to [...] [facility]/[place] [address] CERNER MILLENNIUM Antibody screen (03/28/2013 9:37 AM EDT) Analysis Performed At Patho logist Time Signature Ab Screen Negative CERNER Interp MILLENNIUM Expires at [id number] CERNER 248 on: MILLENNIUM Specimen Anatomical Collection Method Collection Time Receive d Time (Source) Location / / Volume Laterality Blood specimen 03/28/2013 9:37 AM 013 9:37 (specimen) EDT AM EDT Resulting Agency Comment Spec In Lab Mesha Mcknight MD BLOOD BANK ORDERABLES Performing Organization Address City/[facility]/[place] [address] [facility] GRISELDAENNIUM ABO/Rh Typing (03/28/2013 9:37 AM EDT) athologist Signature ABORh Type O Pos [facility] Specimen Anatomical Collection Method Collection Time Receive d Time (Source) Location / / Volume Laterality Blood specimen 03/28/2013 9:37 AM 013 9:37 (specimen) EDT AM EDT Resulting Agency Comment Spec In Lab Mesha Mcknight MD BLOOD BANK ORDERABLES Performing Organization Address City/[facility]/ZIP Code Phon e Number [address] [facility] Differential, Automated [...] Organization Address City/State/ZIP Code Phon e Number [place] [phone] CERNER MILLENNIUM (ABNORMAL) Basic [...] intervals supplied above were not validated at [facility]. Results from pediatri c patients should be [...] Organization Address City/State/[place] [address] CERNER MILLENNIUM (ABNORMAL) CBC [...] MPV 9.3 9.0 - 12.0 CERNER fL [facility] Specimen Anatomical Collection Method Collection Time Receive d Time (Source) Location / / Volume Laterality Blood specimen 03/28/2013 9:34 AM 013 9:38 (specimen) EDT AM EDT Resulting Agency Comment Spec In Lab Mesha Mcknight MD HEMATOLOGY ORDERABLES Performing Organization Address City/[facility]/ZIP Code Phon e Number [address] [facility] POCT Glucose (03/28/2013 9:17 AM EDT) athologist Signature POC Glucose 108 60 - 199 CERNER mg/dL [facility] Comment: Supplemental ranges: <110 mg/dL before meals <200 mg/dL all other times of the day Specimen Anatomical Collection Method Collection Time Receive d Time (Source) Location / / Volume Laterality Blood specimen 03/28/2013 9:17 AM 013 9:17 (specimen) EDT AM EDT Mesha Mcknight MD POINT OF CARE TEST ORDERABLE S Performing Organization Address City/[facility]/ZIP Code Phon e Number [address] [facility] Specimen to Pathology (surgical or derm) (03/28/2013 8:55 AM EDT) Specimen Anatomical Collection Method Collection Time Receive d Time (Source) Location / / Volume Laterality AP Specimen 03/28/2013 8:55 AM 3 8:54 EDT AM EDT Narrative [facility] - 03/28/2013 8:55 AM E DT Specimen requisition ordered. ??Separate Pathology report to follow Mesha Mcknight MD PATHOLOGY/CYTOLOGY ORDERABLE S Performing Organization Address City/[facility]/ZIP Code Phon e Number [address] [facility] documented in this encounter Visit [...] 0900 (Given - Provider: Radha Yao [facility], RN) 2.5 mg, Oral, DAILY, First dose [...] override documented in this encounter Care Teams Personnel Consultant Relationship Specialty Start Date End Date Angela Holliday APRN PCP - General 01/25/13 04/15/15 [address] [place] [address] documented as of this encounter
--- OUTSIDE RECORDS SUMMARY | 2022-05-15 08:32 | XMS_ITS | Encounter Summary ---
:1945 Author Organization [facility] [place] [address] Care Team Providers Name Role Phone Unknown Primary Care Provider Unavailable Reason for Visit Reason Comments Other Encounter Details Date Type Department Care Team Description 10/05/2012 Telephone Dermatology at [facility] Rigoberto Garcia III, [address] [place] [address] [facility] [phone] TEJA MARIE-DERMAT [place] [phone] (Wo rk) Social History Tobacco Use Types [...] Zulma Dolan MD [facility] [place], [place] [address] (Wo rk) 05/28/2022 Laboratory Appointment Lab 05/28/2022 Office Visit Cardiology Zulma Dolan MD [facility] [place] [address] Liz Poole PA [facility] [place] [address] 06/10/2022 Office Visit Dermatology Laura Scherer MD [facility] DR TEJA MARIE-DERMAT [place], [place] [address] (Wo rk) documented as of this encounter Visit Diagnoses Not on filedocumented in this encounter Care Teams Cloth Bleaching Range Tender Relationship Specialty Start Date End Date Unknown PCP - General 10/04/12 01/24/13 None documented as of this encounter
--- OUTSIDE RECORDS SUMMARY | 2022-05-15 08:32 | XMS_ITS | Encounter Summary ---
:1945 Author Organization [facility] [address] Care Team Providers Name Role Phone Angela Holliday APRN Primary Care Provider Encounter Details Date Type Department Care Team Description 01/25/2013 Clinical [place] [address] Social History Tobacco Use Types Packs/Day [...] Dolan MD [facility] Dr [place], [place] [address] (Wo rk) 05/28/2022 Laboratory Appointment Lab 05/28/2022 Office Visit Cardiology Zulma Dolan MD [facility] [place] [address] Liz Poole PA [facility] [place] [address] 06/10/2022 Office Visit Dermatology Laura Scherer MD [facility] DR TEJA GR-DERMAT [place], [place] [address] (Wo rk) documented as of this encounter Visit Diagnoses Not on filedocumented in this encounter Care Teams Shipping And Receiving Coordinator Relationship Specialty Start Date End Date Angela Holliday APRN PCP - General 01/25/13 04/15/[address] [place] [address] documented as of this encounter
--- OUTSIDE RECORDS SUMMARY | 2022-05-15 08:32 | XMS_ITS | Encounter Summary ---
:1945 Author Organization [facility] [place] [address] Care Team Providers Name Role Phone Adi Costello MD Primary Care Provider Reason for Visit Reason Comments Annual Exam ckeck his groin and melanoma follow-up Encounter Details Date Type Department Care Team Description 11/21/2010 Follow-Up Dermatology Arik Tipton Melanoma (Primary Dx) [facility] MD Jorge [place] [phone] DERMATOLOGY DEPT . 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 His only complaints are leg [...] Dolan MD [facility] Dr [place], [place] [address] (Wo rk) 05/28/2022 Laboratory Appointment Lab 05/28/2022 Office Visit Cardiology Zulma Dolan MD [facility] [place] [address] Liz Poole PA [facility] [place] [address] 06/10/2022 Office Visit Dermatology Laura Scherer MD [facility] DR TEJA GR-DERMAT [place], [place] [address] (Wo rk) documented as of this encounter Visit Diagnoses Diagnosis Melanoma - Primary Melanoma of skin, site unspecified documented in this encounter Care Teams Ammonia Print Operator Relationship Specialty Start Date End Date Adi Costello MD PCP - General 06/17/10 09/21/11 [address] [place] [address] documented as of this encounter
--- OUTSIDE RECORDS SUMMARY | 2022-05-15 08:32 | XMS_ITS | Encounter Summary ---
:1945 Author Organization [facility] Address [facility] [place] [address] Care Team Providers Name Role Phone Unknown Primary Care Provider Unavailable Reason for Visit Reason Comments Skin Check Encounter Details Date Type Department Care Team Description 10/04/2012 Follow-Up Dermatology at Rigoberto Forman soriasis (Primary Dx); Abdelrahman HOOPER MD Neoplasm of unspecified nature of bone, soft tissue, and skin; [address] [facility] Skin lesion of chest wall; [place] [address] Seborrheic psoriasis- scalp and ingtergl uteal area [phone] [facility] [place], [place] [address] (Wo rk) Social History Tobacco [...] changes: Rigoberto Albarran MD Section of Dermatology [facility] documented in this encounter Plan of Treatment Upcoming Encounters Date Type Specialty Care Team Description 05/28/2022 Appointment Cardiology Zulma Dolan MD [facility] [address] [place], [place] [address] (Wo rk) 05/28/2022 Laboratory Appointment Lab 05/28/2022 Office Visit Cardiology Zulma Dolan MD [facility] [place] [address] Liz Poole PA [facility] [place] [address] 06/10/2022 Office Visit Dermatology Laura Scherer MD [facility] DR TEJA GR-DERMAT [place], [place] [address] (Wo rk) documented as of [...] ? [facility] Report ? Provider: ?? RIGOBERTO ALBARRAN III Pt. Name: ?? DON HOANG ?A ? Acc #: ?[id number] ? Pt. ? Col Date: ?? 3 [...] PATHOLOGY/CYTOLOGY ORDERABLE S Performing Organization Address City/[facility]/ZIP Code Phon e Number [address] [facility] Specimen to Pathology (NON-OR) (10/04/2012 9:55 AM EDT) Specimen Anatomical Collection Method Collection Time Receive d Time (Source) Location / / Volume Laterality AP Specimen 10/04/2012 9:55 AM 201 3 9:56 EDT AM EDT [facility]ative [facility] 10/04/2012 9:56 AM E DT Specimen requisition ordered. ??Separate Pathology report to follow Rigoberto Albarran III, MD PATHOLOGY/CYTOLOGY ORDERABLE S Performing Organization Address City/[facility]/ZIP Code Phon e Number [address] [facility] documented in this encounter Visit Diagnoses Diagnosis Psoriasis - Primary Other psoriasis Neoplasm of unspecified nature of bone, soft tissue, and skin Skin lesion of chest wall Unspecified disorder of skin and subcuta neous tissue Seborrheic psoriasis- scalp and ingtergl uteal area Other psoriasis documented in this encounter Care Teams Waitress Relationship Specialty Start Date End Date Unknown PCP - General 10/04/12 01/24/13 None documented as of this encounter
--- OUTSIDE RECORDS SUMMARY | 2022-05-15 08:32 | XMS_ITS | Encounter Summary ---
:1945 Author Organization [facility] [place] [address] Care Team Providers Name Role Phone Brody Berrios MD Primary Care Provider Reason for Visit Reason Comments Annual Exam Encounter Details Date Type Department Care Team Description 09/22/2011 Follow-Up Dermatology Arik Tipton Psoriasis (Primary Dx); [facility] MD Jorge Personal history of other malignant neop lasm of skin Drive [place] [phone] DERMATOLOGY DEPT . [place] [address] (Wo rk) Social History Tobacco Use Types [...] PROBLEM: Yearly skin cancer screening HPI Don Faitma is a 66 y.o. year old self [...] Dolan MD [facility] [address] [place], [place] [address] (Wo rk) 05/28/2022 Laboratory Appointment Lab 05/28/2022 Office Visit Cardiology Zulma Dolan MD [facility] [place] [address] Liz Poole PA [facility] [place] [address] 06/10/2022 Office Visit Dermatology Laura Scherer MD [facility] [address]-DERMAT [place]LOG[place], [place] [address] (Wo rk) documented as of this encounter Visit Diagnoses Diagnosis Psoriasis - Primary Other psoriasis Personal history of other malignant neop lasm of skin documented in this encounter Care Teams Physician President Relationship Specialty Start Date End Date Brody Berrios MD PCP - General 09/22/11 10/03/[address] [place] [address] documented as of this encounter
--- OUTSIDE RECORDS SUMMARY | 2022-05-15 08:32 | XMS_ITS | Encounter Summary ---
:1945 Author Organization [facility] [address] Care Team Providers Name Role Phone Angela Holliday APRN Primary Care Provider Encounter Details Date Type Department Care Team Description 03/28/2013 Surgery Main Operating Room Mesha Mcknight, THYROIDECTOMY, [facility] 15.04) [facility] DR Siddiqui [place] [address] [place] [address] [phone] (Wo rk) Social History Tobacco Use Types [...] please call the General Surgery nurse at [phone], since this may mean that you need morecalcium. Follow-up Appointment: Will be scheduled with Dr. Mcknight in 6 weeks Date and time as well as any required labs will be mailed to you Please call [phone] to confirm date and time of your [...] by calcium supplementation. Phone number for questions: [phone] before 5 PM weekdays [phone] after 5 PM and on weekends/holidays Please [...] a 68 y.o. male presents to [facility] today for total thyroidectomy. See full Consult [...] Operative Note Patient Name: Gregory Fatima : [id number] MR#: [id number] Case Date: 03/28/2013 Surgeon: Surgeon(s) and Role: [...] was extubated and taken to the [facility] in stable condition. At the end ofthe [...] Operative Note Patient Name: Gregory Fatima : [id number] MR#: [id number] Case Date: 03/28/2013 Surgeon: Surgeon(s) and Role: [...] MD [facility] er Dr [place] [address] (Wo rk) 05/28/2022 Laboratory Appointment Lab 05/28/2022 Office Visit Cardiology Zulma Dolan MD [facility] I[place] [address] Liz Poole PA [facility] [place] [address] 06/10/2022 Office Visit Dermatology Laura Scherer MD [facility] ER DR TEJA GR[address]DERMAT [place] [address] (Wo rk) documented as of this encounter [...] Address City/State/[place] [address] CERNER MILLENNIUM (ABNORMAL) POCT [...] [facility]/[place] [address] [...] [facility]/ZIP Code Phon e Number [address] CERNER MILLENNIUM (ABNORMAL) [...] [facility]/ZIP Code Phon e Number [address] CERNER MILLENNIUM (ABNORMAL) [...] [facility]ZIP Code Phon e Number [address] CERNER MILLENNIUM (ABNORMAL) [...] [facility]/ZIP Code Phon e Number [address] CERNER MILLENNIUM (ABNORMAL) [...] [facility]/ZIP Code Phon e Number [address] CERNER MILLENNIUM (ABNORMAL) [...] [facility]/ZIP Code Phon e Number [address] [facility] Specimen to Pathology (surgical or [...] [facility]ZIP Code Phon e Number [address] [facility] Pathology Addendum Report (03/28/2013 12:03 PM EDT) Component Value Ref Test Analysis Performed At [facility] gist Range Method Time Signature Addendum CERNER Report ? [facility] ? Provider: ?? MESHA MCKNIGHT Pt. Name: ?? GREGORY FATIMA ? Acc #: ?[id number] ?Pt. MRN: ?[id number] ? Col Date: ?? 03/28/2013 ?/Sex: ?1945,(68 [...] [place] [address] [facility] Surgical Pathology Report (03/28/2013 12:03 PM EDT) Component Value Ref Test Analysis Performed At [facility] gist Range Method Time Signature Surgical [facility] Pathology ? [facility] Report ? Provider: ?? MESHA MCKNIGHT Pt. Name: ?? GREGORY FATIMA ? Acc #: ?[id number] ?Pt. MRN: ?[id number] ? Col Date: ?? 03/28/2013 ?/Sex: ?1945,(68 [...] of hemorrhage and ? calcifications. ? [facility] ? Provider: ?? MESHA MCKNIGHT Pt. Name: ?? GREGORY FATIMA ? Acc #: ?[id number] ?Pt. MRN: ?[id number] ? Col Date: ?? 03/28/2013 ?/Sex: ?1945,(68 years),Male ? Rec Date: ?? 03/28/2013 ?LOC: ?[facility] ? SURGICAL PATHOLOGY ? SECTIONS/PROCESSING: Evs Attendant sections are subm itted. (R6) ? B [...] Test Analysis Performed At [facility] gist Range Method Time Signature Frozen CERNER Section ? [facility] Report ? Provider: ?? MESHA MCKNIGHT Pt. Name: ?? GREGORY FATIMA ? Acc #: ?[id number] ?Pt. MRN: ?[id number] ? Col Date: ?? 03/28/2013 ?/Sex: ?1945,(68 [...] [facility]/[place] [address] [...] [facility]/ZIP Code Phon e Number [address] CERNER MILLENNIUM Specimen to [...] [facility]/[place] [address] CERNER MILLENNIUM Antibody screen (03/28/2013 9:37 AM EDT) Analysis Performed At Patho logist Time Signature Ab Screen Negative CERNER Interp MILLENNIUM Expires at [id number] CERNER 017 on: MILLENNIUM Specimen Anatomical Collection Method Collection Time Receive d Time (Source) Location / / Volume Laterality Blood specimen 03/28/2013 9:37 AM 013 9:37 (specimen) EDT AM EDT Resulting Agency Comment Spec In Lab Mesha Mcknight MD BLOOD BANK ORDERABLES Performing Organization Address City/[facility]/[place] [address] [facility] GRISELDAENNIUM ABO/Rh Typing (03/28/2013 9:37 AM EDT) athologist Signature ABORh Type O Pos [facility] Specimen Anatomical Collection Method Collection Time Receive d Time (Source) Location / / Volume Laterality Blood specimen 03/28/2013 9:37 AM 013 9:37 (specimen) EDT AM EDT Resulting Agency Comment Spec In Lab Mesha Mcknight MD BLOOD BANK ORDERABLES Performing Organization Address City/[facility]/ZIP Code Phon e Number [address] [facility] Differential, Automated (03/28/2013 9:34 AM [...] City/State/ZIP Code Phon e Number [place] [phone] CERNER MILLENNIUM (ABNORMAL) Basic [...] MPV 9.3 9.0 - 12.0 CERNER fL [facility] Specimen Anatomical Collection Method Collection Time Receive d Time (Source) Location / / Volume Laterality Blood specimen 03/28/2013 9:34 AM 013 9:38 (specimen) EDT AM EDT Resulting Agency Comment Spec In Lab Mesha Mcknight MD HEMATOLOGY ORDERABLES Performing Organization Address City/[facility]/ZIP Code Phon e Number [address] [facility] POCT Glucose (03/28/2013 9:17 AM [...] [facility]/ZIP Code Phon e Number [address] [facility] Specimen to Pathology (surgical or derm) (03/28/2013 8:55 AM EDT) Specimen Anatomical Collection Method Collection Time Receive d Time (Source) Location / / Volume Laterality AP Specimen 03/28/2013 8:55 AM 3 8:54 EDT AM EDT Narrative [facility] GRISELDA[facility] - 03/28/2013 8:55 AM E DT Specimen requisition ordered. ??Separate Pathology report to follow Mesha Mcknight MD PATHOLOGY/CYTOLOGY ORDERABLE S Performing Organization Address City/[facility]/ZIP Code Phon e Number [address] RAKESH WALKER documented in [...] RN) 0900 (Given - Provider: Radha Yao [facility], [facility]) 2.5 mg, Oral, DAILY, First dose on Wed03/28/13 at 1530, Until Dis continued ceFAZolin (ANCEF) 2g in dextrose 5% 50 mL (CANCELED) 0900 (Not Given - Provider: Cami Baxter RN - Reason: See comment - Comment: scheduled for 18:00)1027 (Given - Provider: Tessa Riec)1200 (Not Given - Provider: Cami Baxter RN [...] override documented in this encounter Care Teams Enhanced Environmental Operator Relationship Specialty Start Date End Date Angela Holliday APRN PCP - General 01/25/13 04/15/15 [address] [place] [address] documented as of this encounter
--- OUTSIDE RECORDS SUMMARY | 2022-05-15 08:32 | XMS_ITS | Encounter Summary ---
:1945 Author Organization [facility] [place] [address] Care Team Providers Name Role Phone Angela Holliday APRN Primary Care Provider Encounter Details Date Type Department Care Team Description 03/30/2013 Telephone General Surgery at [facility] Cliff Nevarez, [place] [address] Social History Tobacco Use Types Packs/Day [...] Dolan MD [facility] er [place], [place] [address] (Wo rk) 05/28/2022 Laboratory Appointment Lab 05/28/2022 Office Visit Cardiology Zulma Dolan MD [facility] [place] [address] Liz Poole PA [facility] [place] [address] 06/10/2022 Office Visit Dermatology Laura Scherer MD [facility] DR [address] [place], [place] [address] (Wo rk) documented as of this encounter Visit Diagnoses Not on filedocumented in this encounter Care Teams Sintering Press Operator Relationship Specialty Start Date End Date Angela Holliday APRN PCP - General 01/25/13 04/15/[address] [place] [address] documented as of this encounter
--- OUTSIDE RECORDS SUMMARY | 2022-05-15 08:32 | XMS_ITS | Encounter Summary ---
:1945 Author Organization [facility] [place] [address] Care Team Providers Name Role Phone Angela Holliday APRN Primary Care Provider Encounter Details Date Type Department Care Team Description 03/30/2013 Telephone General Surgery at [facility] Cliff Nevarez, [place] [address] Social History Tobacco Use Types Packs/Day [...] Dolan MD [facility] [address] [place], [place] [address] (Wo rk) 05/28/2022 Laboratory Appointment Lab 05/28/2022 Office Visit Cardiology Zulma Dolan MD [facility] [place] [address] [facility] [place] [address] 06/10/2022 Office Visit Dermatology Laura Scherer MD [facility] DR TE[address] [place], [place] [address] (Wo rk) documented as of this encounter Visit Diagnoses Not on filedocumented in this encounter Care Teams Fraud Investigator Relationship Specialty Start Date End Date Angela Holliday APRN PCP - General 01/25/13 04/15/[address] [place] [address] documented as of this encounter
--- OUTSIDE RECORDS SUMMARY | 2022-05-15 08:32 | XMS_ITS | Encounter Summary ---
:1945 Author Organization [facility] [place] [address] Care Team Providers Name Role Phone Angela Holliday APRN Primary Care Provider Reason for Visit Reason Onset Date Comments Other 03/30/2013 blood in catheter ba g Encounter Details Date Type Department Care Team Description 03/30/2013 Telephone General Surgery at [facility] Janneth Sharma, Other (blood in [facility] RN catheter bag) [place] [address] Social History Tobacco Use Types Packs/Day [...] Cardiology Zulma Dolan MD [facility] [place], [place] [address] (Wo rk) 05/28/2022 Laboratory Appointment Lab 05/28/2022 Office Visit Cardiology Zulma Dolan MD [facility] [place] [address] Liz Poole PA [facility] [place] [address] 06/10/2022 Office Visit Dermatology Laura Scherer MD [facility] DR TE[address] [place], [place] [address] (Wo rk) documented as of this encounter Visit Diagnoses Not on filedocumented in this encounter Care Teams Network Strategist Relationship Specialty Start Date End Date Angela Holliday APRN PCP - General 01/25/13 04/15/[address] [place] [address] documented as of this encounter
--- OUTSIDE RECORDS SUMMARY | 2022-05-15 08:32 | XMS_ITS | Encounter Summary ---
:1945 Author Organization [facility] [place] [address] Care Team Providers Name Role Phone NeilSom conner STACIE Primary Care Provider Reason for Visit Reason Comments Establish Care OBST GOITER Encounter Details Date Type Department Care Team Description 01/25/2013 Office Visit General Surgery at Manny Mcknight er colloid, toxic, [facility] MD Eliseo nodular (Primary Dx) [facility] [place] GENERAL SURGERY [id number] [place], [place] [address] [phone] Social History Tobacco Use Types Packs/Day Years [...] the thyroid gland were obtained using a [employer] MicroMaxx and an HFL38/13-6 broadband linear array [...] on physical exam. ROS: No H/O asthma, PA, stroke, pulmonary embolus or phlebitis. Comprehensive review [...] agrees to proceed. Will sign in through [facility]. Consent is signed. Send copy to Dr. SOM HOLLIDAY APRN and Elijah Elias MD. documented in this encounter Plan of Treatment Upcoming Encounters Date Type Specialty Care Team Description 05/28/2022 Appointment Cardiology Zulma Dolan MD [facility] [address] [place] [address] (Wo rk) 05/28/2022 Laboratory Appointment Lab 05/28/2022 Office Visit Cardiology Zulma Dolan MD [facility] [place] [address] Liz Poole PA [facility] [place] [address] 06/10/2022 Office Visit Dermatology Laura Scherer MD [facility] DR TE[address] [place], [place] [address] (Wo rk) documented as of [...] 406 ms MUSE SYSTEM (Bezet) Calculated P [place] 52 degrees MUSE SYSTEM Calculated R [place] 0 degrees MUSE SYSTEM Calculated T [place] 40 degrees MUSE SYSTEM INTERPRETATION Normal sinus [...] storm documented in this encounter Care Teams Machine Stitcher Relationship Specialty Start Date End Date Som Holliday APRN PCP - General 01/25/13 04/15/[address] [place] [address] documented as of this encounter
--- OUTSIDE RECORDS SUMMARY | 2022-05-15 08:32 | XMS_ITS | Encounter Summary ---
:1945 [place] [address] Care Team Providers Name Role Phone MiyaLokeshAngela STACIE Primary Care Provider Encounter Details Date Type Department Care Team Description 03/28/2013 Anesthesia Event Main Operating Room Meredith Calvert MD [facility] [place] [address] [facility] Nolvia Riojas PA [facility] [place] [address] [place] [address] Anesthesia Record Procedure Summary Procedure Name [...] Dolan MD [facility] [place], [place] [address] (Wo rk) 05/28/2022 Laboratory Appointment Lab 05/28/2022 Office Visit Cardiology Zulma Dolan MD [facility] [place] [address] Liz Poole PA [facility] [place] [address] 06/10/2022 Office Visit Dermatology Laura Scherer MD [facility] [address]MAT [place], [place] [address] (Wo rk) documented [...] documented in this encounter Care Teams It Manager Relationship Specialty Start Date End Date Angela Holliday APRN PCP - General 01/25/13 04/15/[address] [place] [address] documented as of this encounter
--- OUTSIDE RECORDS SUMMARY | 2022-05-15 08:33 | XMS_ITS | Encounter Summary ---
:1945 Author Organization [facility] Address [address] [place] [address] Care Team Providers Name Role Phone Unknown, Provider Primary Care Provider Encounter Details Date Type Department Care Team Description 03/05/2014 Results Only [facility] Eris Taylor MD Laboratory Services - [address] [place] [address] [place] [address] [phone] Social History Tobacco Use Types Packs/Day Years [...] ? DON HOANG ? Accession #: ? [id number] ? : ? 1945 (Age: 68) ??M [...] [facility] [address] [place] [address] SERVICES [facility] [address] [place] [address] documented in this encounter Visit Diagnoses Not on filedocumented in this encounter Care Teams Grinding Wheel Facer Relationship Specialty Start Date End Date Unknown, Provider, PCP - General 03/07/14 07/12/14 documented as of this encounter
--- OUTSIDE RECORDS SUMMARY | 2022-05-15 08:33 | XMS_ITS | Encounter Summary ---
:1945 Author Organization [facility] Address [address] [place] [address] Care Team Providers Name Role Phone Lovely Vicente MD Primary Care Provider Encounter Details Date Type Department Care Team Description 04/04/2021 Lab Requisition [facility] Outr Resulting Lab, Pathology & Laboratory Provider [facility] [address] [place] [address] Social History Tobacco Use Types Packs/Day Years [...] Pathologist Sig nature Salmonella PCR Negative Negative [facility] Shigella/Enteroinvasive Negative Negative [facility] HN LAB CAMPYLOBACTER PCR Negative Negative [facility] ER LABORATORY SERVICES Shiga Toxin PCR Negative Negative [facility] Specimen Feces - Specimen from rectum (specimen) Performing Organization Address City/State/ZIP Code Phon e Number [facility] [address] [place] [address] SERVICES documented in this encounter Visit Diagnoses Not on filedocumented in this encounter Care Teams Senior Bookkeeper Relationship Specialty Start Date End Date Lovely Vicente MD PCP - General 07/13/14 documented as of this encounter
--- OUTSIDE RECORDS SUMMARY | 2022-05-15 08:33 | XMS_ITS | Clinical Summary ---
:1945 Author Organization [facility] Address [address] [place] [address] Care Team Providers Name Role Phone Lovely [...] Pathologist Sig nature PSA 2.7 <=6.5 ng/mL [facility] LABORATOR Y SERVICES Specimen Blood - Venous blood (substance) Narrative [facility] LABORATORY SERVICES - 02/20/2022 18:17 EDT NOTE: Serum PSA concentration should not be in terpreted as absolute evidence for the presence or absence of malignant disease. Assayed on Siemens ADVIA Centaur XPT usi ng chemiluminescent technology.??Values obtained by using different assay methods cannot be used interchangeably. Performing Organization Address City/State/ZIP Code Phon e Number [facility] LABORATORY [address] [place] [address] SERVICES from Last 3 Months Care Teams Cephalometric Tracer Relationship Specialty Start Date End Date Lovely Vicente MD PCP - General 07/13/14
--- OUTSIDE RECORDS SUMMARY | 2022-05-15 08:33 | XMS_ITS | Encounter Summary ---
:[address] [facility] Address [address] [place] [address] Care Team Providers Name Role Phone Lovely Vicente MD Primary Care Provider Encounter Details Date Type Department Care Team Description 01/17/2021 Lab Requisition [facility] Outr Resulting Lab, Pathology & Laboratory Provider [facility] [address] [place] [address] Social History Tobacco Use Types Packs/Day Years [...] nature PSA 2.9 0.0 - 6.5 ng/mL [facility] LABORA TORY SERVICES Specimen Blood - Venous blood (substance) Narrative [facility] LABOR[facility]ORY SERVICES - 01/17/2021 17:46 EDT NOTE: Serum PSA concentration should not be in terpreted as absolute evidence for the presence or absence of malignant disease. Assayed on Siemens ADVIA Centaur XPT usi ng chemiluminescent technology.??Values obtained by using different assay methods cannot be used interchangeably. Performing Organization Address City/State/ZIP Code Phon e Number [facility] [address] [place] [address] SERVICES documented in this encounter Visit Diagnoses Not on filedocumented in this encounter Care Teams Cash Application Representative Relationship Specialty Start Date End Date Lovely Vicente MD PCP - General 07/13/14 documented as of this encounter
--- OUTSIDE RECORDS SUMMARY | 2022-05-15 08:33 | XMS_ITS | Encounter Summary ---
:1945 Author Organization [facility] Address [address] [place] [address] Care Team Providers Name Role Phone Lovely Vicente MD Primary Care Provider Encounter Details Date Type Department Care Team Description 08/11/2019 Lab Requisition [facility] Unknown, Provider, Pathology & Laboratory [facility] [address] [facility] [address] Social History Tobacco Use Types Packs/Day Years [...] (08/11/2019 14:35 EST) Giardia and Cryptosporidium Cryptosporidium [facility] Cryptosporidium Antigen Neg and Antigen Neg and CENTER Giardia Antigen Neg Giardia Antigen Neg LABORATORY SERVICES Specimen Feces - Specimen from rectum (specimen) Performing Organization Address City/State/ZIP Code Phon e Number [facility]OR[facility] [address] [place] [address] SERVICES documented in this encounter Visit Diagnoses Not on filedocumented in this encounter Care Teams Telecommunication Operator Relationship Specialty Start Date End Date Lovely Vicente MD PCP - General 07/13/14 documented as of this encounter
--- OUTSIDE RECORDS SUMMARY | 2022-05-15 08:33 | XMS_ITS | Encounter Summary ---
:1945 Author Organization [facility] Address [address] [place] [address] Care Team Providers Name Role Phone Lovely Vicente MD Primary Care Provider Encounter Details Date Type Department Care Team Description 01/01/2020 Lab Requisition [facility] Outr Resulting Lab, Pathology & Laboratory Provider [facility] [address] [place] [address] Social History Tobacco Use Types Packs/Day Years [...] nature PSA 2.1 0.0 - 6.5 ng/mL [facility] LABORA TORY SERVICES Specimen Blood - Venous blood (substance) Narrative [facility] LABORATORY SERVICES - 01/02/2020 10:40 EDT NOTE: Serum PSA concentration should not be in terpreted as absolute evidence for the presence or absence of malignant disease. Assayed on Siemens ADVIA Centaur XPT usi ng chemiluminescent technology.??Values obtained by using different assay methods cannot be used interchangeably. Performing Organization Address City/State/ZIP Code Phon e Number [facility]OR[facility] [address] [place] [address] SERVICES documented in this encounter Visit Diagnoses Not on filedocumented in this encounter Care Teams Assembly Hand Relationship Specialty Start Date End Date Lovely Vicente MD PCP - General 07/13/14 documented as of this encounter
--- OUTSIDE RECORDS SUMMARY | 2022-05-15 08:33 | XMS_ITS | Encounter Summary ---
:[address] [facility] Address [address] [place] [address] Care Team Providers Name Role Phone Unavailable Primary Care Provider Unavailable Encounter Details Date Type Department Care Team Description 03/05/2014 Hospital Encounter [facility] Unknown, Provider, [facility] 0 [facility] [phone] [place] [address] (Work) [phone] Social History Tobacco Use Types Packs/Day Years Used Date Never Assessed Sex Assigned at Date Recorded Not on file documented as of this encounter Discharge Disposition Disposition Code Departure Means Destination Home or Self [facility] documented in this encounter Plan of Treatment Not on filedocumented as of this encounter Visit Diagnoses Not on filedocumented in this encounter
--- OUTSIDE RECORDS SUMMARY | 2022-05-15 08:33 | XMS_ITS | Encounter Summary ---
:1945 Author Organization [facility] Address [address] [place] [address] Care Team Providers Name Role Phone Unknown, Provider Primary Care Provider Encounter Details Date Type Department Care Team Description 07/11/2014 Results Only [facility] Shruthi Horowitz MD Laboratory Services - [address] [place] [address] [place] [address] 0 [facility] [place] [address] [phone] Social History Tobacco Use Types Packs/Day Years Used Date Never Assessed Sex Assigned at Date Recorded Not on file documented as of this encounter Plan of Treatment Not on filedocumented as of this encounter Procedures Procedure Name Priority Date/Time Associated Diagnosis Comme [facility] SURGICAL PATHOLOGY Routine 07/11/2014 8:55 EST Re sults for this procedure are i n the results section. documented in this encounter Results SURGICAL PATHOLOGY (07/11/2014 8:55 EST) Pathology Report: SURGICAL PATHOLOGY REPORT [place] Reports generated via electronic interface contain sorin ginal data; LABORATORY however they are lacking the format of the original re port. SERVICES Caution should be taken when reading/interpreting unfo rmatted reports. Name: ? DON HOANG ? Accession #: ? [id number] ? : ? 1945 (Age: 69) ??M [...] 6.5 x 3.0 cm in aggreg ate). Vice President Integrated sections are submitted in 1- 10 (approximately 40% of the specimen is submitted). Viry Nunez 07/12/2014 11:21 AM End of Report Specimen Performing Organization Address City/State/ZIP Code Phon e Number [facility] [address] [place] [address] SERVICES documented in this encounter Visit Diagnoses Not on filedocumented in this encounter Care Teams Supportability Engineer Relationship Specialty Start Date End Date Unknown, Provider, PCP - General 03/07/14 07/12/14 documented as of this encounter
--- OUTSIDE RECORDS SUMMARY | 2022-05-15 08:33 | XMS_ITS | Encounter Summary ---
:1945 Author Organization [facility] Address [address] [place] [address] Care Team Providers Name Role Phone Lovely Vicente MD Primary Care Provider Encounter Details Date Type Department Care Team Description 02/20/2022 Lab Requisition [facility] Outr Resulting Lab, Pathology & Laboratory Provider [facility] [address] [place] [address] Social History Tobacco Use Types Packs/Day Years [...] Number [facility] [address] [place] [address] SERVICES documented in this encounter Visit Diagnoses Not on filedocumented in this encounter Care Teams Addiction Medicine Physician Relationship Specialty Start Date End Date Lovely Vicente MD PCP - General 07/13/14 documented as of this encounter
--- OUTSIDE RECORDS SUMMARY | 2022-05-20 09:30 | XMS_ITS | Encounter Summary ---
:1945 Author Organization [facility] [address] Care Team Providers Name Role Phone Lovely Vicente MD Primary Care Provider Encounter Details Date Type Department Care Team Description 03/26/2022 Office Visit Cardiology at [facility] Vitaliy Nobles MD Chronic systolic heart failure; [facility] ONE MEDICAL ASCVD (ar teriosclerotic cardiovascular disease); [facility] Cardiomyopathy, ischemic [place], [place] CARDIOLOGY [address] [place] [address] [phone] Social History Tobacco Use Types Packs/Day Years [...] [facility] [place] [address] CARDIOLOGY OUTPATIENT CLINIC VISIT [facility] Don Mccollum Kushal 03/26/2022 Referring Providers: MD Jules Cr Joyce, MD [address] [place] [id number] CHIEF COMPLAINT: I am doing well CARDIAC-RELEVANT [...] using a 2.0 x 26 mm ORION [place] TUCKER stent. This completes therevascularization of all [...] [address] Lovely Vicente MD [address] [place] [id number] HISTORY OF PRESENT ILLNESS: Don Fatima is [...] using a 2.0 x 26 mm ORION [place] TUCKER stent. This completes the revascularization of [...] [facility] ??? PRO AMPUTATION FOOT, TRANSMETATARSAL Right 08/09/2017 AMPUTATION, TRANSMETATARSAL (WRVU 12.71) performed by Yonathan Smith MD at [facility] OR ??? PRO CABG, ARTERIAL, SINGLE N/A 07/07/2017 @CABG, USING ARTERIAL GRAFT;SINGLE ARTERIAL GRAFT (WRVU 33.75) performed by Yuan Retana MD at [facility] OR ??? PRO CABG, ARTERY-VEIN, TWO N/A 07/07/2017 @CABG, TWO VENOUS GRAFTS & ARTERIAL GRAFT (WRVU 7.93) performed by Yuan Retana MD at [facility] OR ??? PRO COLONOSCOPY, REMV LESN, SNARE 01/16/2014 COLONOSCOPY, POLYPECTOMY, REMOVAL LESION BY SNARE performed by Nohemi Jaimes MD at [facility] ENDOSCOPY ??? PRO DRESSING CHANGE UNDER ANESTHESIA Right 08/11/2017 (MSURG) DRESSING CHANGE (FOR OTHER THAN IVAN) UNDER ANES. (WRVU 0.86) performed by Lamar Smith MD at [facility] MAIN OR ??? PRO ENDOSCOPY W/VIDEO-ASST VEIN HARVEST, CABG Right 07/07/2017 ENDOSCOPIC HARVEST VEIN(S) FOR CABG (WRVU 0.31) performed by Yuan Retana MD at [facility] MAIN OR ??? PRO PERC TRLUML CORONARY STENT W/ANGIO ONE ART/BRANCH N/A 01/30/2022 STENT PLACEMENT-SINGLE MAJOR CORONARY ARTERY OR BRANCH performed by Vitaliy Nobles MD at [facility] CATH LABS ??? PRO THYROIDECTOMY 03/28/2013 THYROIDECTOMY, TOTAL OR COMPLETE performed by Manny Mcknight MD at [facility] MAIN OR SOCIAL HISTORY: reports that he [...] using a 2.0 x 26 mm ORION [place] TUCKER stent. This completes the revascularization of [...] Sincerely, Dr. Vitaliy Nobles MD [facility] [place] Editor Interventional Cardiology 03/26/2022 CC: Lovely Vicente MD [...] As per DC Summary - Admitted to [facility] on 12/08/21, transferred from [facility], respiratory distress with hypoxia 86% on [...] (DAPT) Recommendations above ? TTE from [facility] 12/08/21 ?? 07/28/2019 Echocardiogram: SUMMARY: 1. [...] regurgitation present. 07/07/2019 - 07/21/2019 Zio Patch Cad Librarian The patient had a minimum heart rate [...] 12.5 mg daily 6. Post-op atrial fibrillation [id number] (CHF, HTN, DM, vascular disease, thromboembolism) Eliquis 7. PAD 08/06/2017: Right 1st, 2nd, 3rd toe amputation 08/11/2017: Left??femoral arterial access, RLE??angiogram, Balloon angioplasty of R PT 10/25/2017: right popliteal-pedal bypass at [facility] 8. Hypothyrodism S/p thyroidectomy for goiter Levothyroxine ?? Plan: 3 months in clinic with labs and TTE Liz Poole PA-C 03/26/2022 documented in this encounter Plan of Treatment Upcoming Encounters Date Type Specialty Care Team Description 05/28/2022 Appointment Cardiology Zulma Dolan MD [facility] [address] [place] [address] (Wo rk) 05/28/2022 Laboratory Appointment Lab 05/28/2022 Office Visit Cardiology Zulma Dolan MD [facility] [place] [address] Liz Poole PA [facility] [place] [address] 06/10/2022 Office Visit Dermatology Laura Scherer MD [facility] [address] [place], [place] [address] (Wo rk) documented as of this encounter Visit Diagnoses Diagnosis Chronic systolic heart failure ASCVD (arteriosclerotic cardiovascular d isease) Unspecified cardiovascular disease Cardiomyopathy, ischemic Other specified forms of chronic ischemi c heart disease documented in this encounter Care Teams Activity Aide Relationship Specialty Start Date End Date Lovely Vicente MD PCP - General 04/16/[address] [place] [address] documented as of this encounter
--- OUTSIDE RECORDS SUMMARY | 2022-05-20 09:30 | XMS_ITS | Encounter Summary ---
:1945 Author Organization [facility] Address [facility] [place] [address] Care Team Providers Name Role Phone Lovely Vicente MD Primary Care Provider Reason for Visit Reason Onset Date Comments Medication Refill 03/06/2022 Metoprolol Succinate Encounter Details Date Type Department Care Team Description 03/06/2022 Refill Cardiology at [facility] Liz Poole PA Medication Refill [facility] (Ar toprolol Succinate) [place] [address] Cardiology Dept [phone] [place], [place] 0[address] (Wo rk) Social History Tobacco [...] MD [facility] er [place], [place] [address] (Wo rk) 05/28/2022 Laboratory Appointment Lab 05/28/2022 Office Visit Cardiology Zulma Dolan MD [facility] [place] [address] Liz Poole PA [facility] [place] [address] 06/10/2022 Office Visit Dermatology Laura Scherer MD [facility] ER DR [address] [place], [place] [address] (Wo rk) documented as of this encounter Visit Diagnoses Diagnosis Chronic systolic heart failure Cardiomyopathy, ischemic Other specified forms of chronic ischemi c heart disease documented in this encounter Care Teams Segment Assembler Relationship Specialty Start Date End Date Lovely Vicente MD PCP - General 04/16/[address] [place] [address] documented as of this encounter
--- OUTSIDE RECORDS SUMMARY | 2022-05-20 09:30 | XMS_ITS | Encounter Summary ---
:1945 [place] [address] Care Team Providers Name Role Phone Lovely Vicente MD Primary Care Provider Reason for Visit Reason Onset Date Comments Follow-up 03/06/2022 Dave Bueno Encounter Details Date Type Department Care Team Description 03/06/[address] [facility] Martha Comer, Follow-up ([facility] VAM[facility] Start) [place] [address] Social History Tobacco Use Types Packs/Day [...] Dolan MD [facility] [address] [place], [place] [address] (Wo rk) 05/28/2022 Laboratory Appointment Lab 05/28/2022 Office Visit Cardiology Zulma Dolan MD [facility] [address] Liz Poole PA [facility] [place] [address] 06/10/2022 Office Visit Dermatology Laura Scherer MD [facility] [address] [place], [place] [address] (Wo rk) documented [...] on filedocumented in this encounter Care Teams Straight Cutter Relationship Specialty Start Date End Date Lovely Vicente MD PCP - General 04/16/[address] [place] [address] documented as of this encounter
--- OUTSIDE RECORDS SUMMARY | 2022-05-20 09:30 | XMS_ITS | Encounter Summary ---
:1945 Author Organization [facility] [place] [address] Care Team Providers Name Role Phone Lovely Vicente MD Primary Care Provider Encounter Details Date Type Department Care Team Description 02/23/2022 Refill Cardiology at [facility] Liz Poole PA [facility] [place] [address] Cardiology Dept [phone] [place], [place] [address] (Wo rk) Social History Tobacco [...] Oneill RPH Transfer of Services Don Fatima [address] [place] [address] [place] [address] Telephone Information: Work Phone Not on file. The [facility] has received a prescription for Entresto for patient Mr. Don Fatima 76 y.o. (1945). The patient requests the prescription to be filled with [facility]. We spoke to patient to notify of this change and to provide number to reach the new filling pharmacy. A copyof patient's medication profile was offered to the accepting pharmacy. Additional instructions provided to patient about transfer: no The patient has been advised to call the [facility] at [phone] with any questionsor concerns on this referral. Thank you, Oxana Oneill RPH 02/23/22 4:26 PM Patient understands no changes to current drug regimen were made at this time. documented in this encounter Plan of Treatment Upcoming Encounters Date Type Specialty Care Team Description 05/28/2022 Appointment Cardiology Zulma Dolan MD [facility] [place], [place] [address] (Wo rk) 05/28/2022 Laboratory Appointment Lab 05/28/2022 Office Visit Cardiology Zulma Dolan MD [facility] [place] [address] Liz Poole PA [facility] [place] [address] 06/10/2022 Office Visit Dermatology Laura Scherer MD [facility] [address] [place], [place] [address] (Wo rk) documented as of this encounter Visit Diagnoses Not on filedocumented in this encounter Care Teams Clinical Services Professional Relationship Specialty Start Date End Date Lovely Vicente MD PCP - General 04/16/[address] [place] [address] documented as of this encounter
--- OUTSIDE RECORDS SUMMARY | 2022-05-20 09:30 | XMS_ITS | Encounter Summary ---
:1945 Author Organization [facility] Address [facility] [place] [address] Care Team Providers Name Role Phone Lovely Vicente MD Primary Care Provider Reason for Visit Reason Comments Prior Authorization Entresto 24-26mg tablets Encounter Details Date Type Department Care Team Description 02/20/2022 Specialty Pharmacy Pharmacy at [facility] Lamberto Smith Prior Authorization [facility] J (Entresto 24-26mg Drive tablets) [place] [id number] Social History Tobacco Use Types Packs/Day Years [...] Don Fatima Patient : 1945 Patient Address: [address] [place] [address] [place] [id number] (home) Medication Name: ENTRESTO 24 MG-26 MG TABLET Medication ID: [id number] Patient Location: [facility] 4A Patient Location Comment: Medication Strength Frequency Requested: Entresto 24-26mg tablets / One tablet twice daily Qty/Day Supply: New Start: New to Therapy Diagnosis & ICD-10 Code: Chronic systolic heart failure, I50.22 Subscriber Insurance: [facility] Subscriber Insurance Comment: Fax: Physician: LIZ CARRERA Physician Comment : PA Status: NO PA REQUIRED Insurance mandated Pharmacy: Unknown Fillable at [facility]: Yes Insurance requirements/notes: None Copay: $119.01 (goes to coverage gap/odalys monteiro) Copay assistance: [employer] Copay assistance comment: If cost isn't affordable, then we'll suggest enrollment in the currently open [facility] Heart Failure zoila, which provides up to $1000 in copay assistance. If zoila closes, or doesn't work out, then the patient can attempt enrollment in the licensed journeyman electrician assistance program, the [employer] Patient Assistance [employer] (NPAF). At which point we'd refer to [facility] for assistance with enrollment. Pharmacy staff [...] MD [facility] [place], [place] [address] (Wo rk) 05/28/2022 Laboratory Appointment Lab 05/28/2022 Office Visit Cardiology Zulma Dolan MD [facility] [place] [address] Liz Carrera PA [facility] [place] [address] 06/10/2022 Office Visit Dermatology Laura Scherer MD [facility] ER DR [address] [place], [place] [address] (Wo rk) documented as of this encounter Visit Diagnoses Not on filedocumented in this encounter Care Teams Cement Mixer Driver Relationship Specialty Start Date End Date Lovely Vicente MD PCP - General 04/16/[address] [place] [address] documented as of this encounter
--- OUTSIDE RECORDS SUMMARY | 2022-05-20 09:30 | XMS_ITS | Clinical Summary ---
:1945 Author Organization [facility] [place] [address] Care Team Providers Name Role Phone Lovely [...] Zulma Dolan MD [facility] [place], [place] [address] (Wo rk) 05/28/2022 Laboratory Appointment Lab 05/28/2022 Office Visit Cardiology Zulma Dolan [place] [address] Liz Poole PA [facility] [place] [address] 06/10/2022 Office Visit Dermatology Laura Scherer MD [facility] DR [address] [place], [place] [address] (Wo rk) Health Maintenance Due Date Last Done Comments Covid-19 Vaccine (#1) 1945 Pneumoccocal Vaccine: 65+ (1 - PCV) 1952 Hepatitis C Screening 1964 Tdap adult 1965 Tetanus vaccine 1965 Zoster vaccine (1 of 2) 1996 Colonoscopy 01/16/2019 01/16/2014, 01/16/2014 Influenza (Flu) vaccine (1 of 1 - 03/26/2022 03/29/2013, Influenza standard series) Medical Devices Implanted Type Area Library Page Device Shelf Model / Identifier Expiration Serial / Date Lot Cable,Cut,Edg,Blnt,Ss,3tpr ([id number]) - [id number] IMPLANTS Midline: [employer] 04/01/2022 [id number] / Implanted: Qty: 4 on 07/07/2017 by Yuan Retana MD at [facility] [employer] - / [id number] Procedures Procedure Name Priority Date/Time Associated Comments [...] Time Signature WBC 7.2 4.0 - 9.5 [facility] LABORATORY RBC 4.41 (L) 4.58 - [facility] RYAN 5.54 [facility] x10(6)/[facility] LABORATORY Hemoglobin 13.2 (L) 13.7 - [facility] RYAN 16.5 g/dL [facility] LABOR[facility] Hematocrit 40.9 40.5 - [facility] RYAN 48.5 % [facility] MCV 92.7 82.9 - [facility] RYAN 93.1 [facility] LABORATORY MCH 29.9 27.5 - [place] RYAN 32.1 pg [facility] MCHC 32.3 32.0 - [facility] RYAN 35.7 g/dL [facility] Platelets 191 145 - 357 [facility] x10(3)/[facility] LABORATORY RDWSD 53.6 (H) 36.0 - [facility] RYAN 45.0 [facility] LABORATORY RDWCV 15.6 (H) 11.4 - [facility] RYAN 13.8 % [facility] MPV 8.7 7.6 - 12.9 [facility] ihiji [facility] LABORATORY nRBC % Auto 0.0 % [facility] LABORATORY nRBC Abs Auto 0.000 0.000 - [facility] RYAN 0.000 [facility] x10(3)/[facility] LABORATORY Specimen Anatomical Collection Method Collection Time Receive d Time (Source) Location / / Volume Laterality Blood 02/19/2022 8:06 AM 8:09 EDT AM EDT Resulting Agency Comment Spec In Lab Liz BROWN HEMATOLOGY ORDERABLES Performing Organization Address City/State/ZIP Code Phon e Number [place] [id number] [facility]OSPITAL LABORATORY [address] (ABNORMAL) Differential, Automated (02/19/2022 8:06 AM EDT) [facility] gist Method Time Signature Neutrophils % 76.0 % [facility] LABORATORY Neutr Abs (ANC) 5.49 1.70 - [facility] 6.10 [facility] x10(3)/[facility] LABORATORY Lymphocytes % 10.8 % [facility] LABORATORY Lymphocytes Abs 0.8 (L) 0.9 - 3.2 [facility] x10(3)/[facility] LABORATORY Monocytes % 10.2 % [facility] LABORATORY Monocyte Abs 0.7 0.3 - 0.9 [facility] x10(3)/[facility] LABORATORY Eosinophils % 1.2 % [facility] LABOR[facility]ORY Eosinophils Abs 0.1 0.0 - 0.4 [facility] x10(3)/[facility] LABORATORY Basophils % 0.8 % [facility] LABOR[facility]ORY Basophils Abs 0.1 0.0 - 0.1 [facility] x10(3)/[facility] LABORATORY Immature Gran % 1.00 [...] Abs 0.07 (H) 0.00 - 0.04 x10(3)/[facility] LABORATORY Specimen Anatomical Collection Method Collection Time Receive d Time (Source) Location / / Volume Laterality Blood 02/19/2022 8:06 AM 8:09 EDT AM EDT Resulting Agency Comment Spec In Lab Liz BROWN HEMATOLOGY ORDERABLES Performing Organization Address City/State/[place] [address] (ABNORMAL) pro-Brain Natriuretic Peptide [...] Organization Address City/State/[place] [address] from Last 3 Months Insurance Payer Benefit Plan / Subscriber ID Effective Phone Address T ype Group Dates MEDICARE MEDICARE PART [id number] 2011-Prese [phone] [place] [id number] [employer] [place] [id number] 2018-Prese [phone] [address] [place] [address] [place] [address] Advance Directives Documents on File Type Date Recorded Patient Junior Systems Administrator Explanati on Advance Directives and Living 03/28/2013 [...] capacity to make decision: Yes Care Teams Audio Visual Director Relationship Specialty Start Date End Date Lovely Vicente MD PCP - General 04/16/15 [address] [place] [address]
--- OUTSIDE RECORDS SUMMARY | 2022-05-20 09:30 | XMS_ITS | Encounter Summary ---
:1945 Author Organization [facility] [place] [address] Care Team Providers Name Role Phone Lovely Vicente MD Primary Care Provider Reason for Visit Reason Comments Medication Refill Encounter Details Date Type Department Care Team Description 04/07/2022 Refill Cardiology at [facility] Janneth Padilla PA Medication Refill [facility] [place] [address] CARDIOLOGY DEPT. [phone] [place], [place] [address] (Wo rk) Social History Tobacco [...] MD [facility] er [place], [place] [address] (Wo rk) 05/28/2022 Laboratory Appointment Lab 05/28/2022 Office Visit Cardiology Zulma Dolan MD [facility] [place] [address] Liz Poole PA [facility] [place] [address] 06/10/2022 Office Visit Dermatology Laura Scherer MD [facility] [address] [place], [place] [address] (Wo rk) documented as of this encounter Visit Diagnoses Not on filedocumented in this encounter Care Teams Operations Dispatcher Relationship Specialty Start Date End Date Lovely Vicente MD PCP - General 04/16/[address] [place] [address] [address] [place] [address] documented as of this encounter
--- OUTSIDE RECORDS SUMMARY | 2022-05-20 09:30 | XMS_ITS | Encounter Summary ---
:1945 Author Organization [facility] [place] [address] Care Team Providers Name Role Phone Lovely Vicente MD Primary Care Provider Encounter Details Date Type Department Care Team Description 02/24/2022 Notes Only Care [place] [address] Social History Tobacco Use Types Packs/Day [...] return to the Medication Assistance Program. The [facility] office will follow up with the patient in 5 business days to see if the patient has received the application and if they have any questions. documented in this encounter Plan of Treatment Upcoming Encounters Date Type Specialty Care Team Description 05/28/2022 Appointment Cardiology Zulma Dolan MD [facility] [address] [place], [place] [address] (Wo rk) 05/28/2022 Laboratory Appointment Lab 05/28/2022 Office Visit Cardiology Zulma Dolan MD [facility] [place] [address] Liz Poole PA [facility] [place] [address] 06/10/2022 Office Visit Dermatology Laura Scherer MD [facility] ER DR [address] [place], [place] [address] (Wo rk) documented as of this encounter Visit Diagnoses Not on filedocumented in this encounter Care Teams Cable Tool Operator Relationship Specialty Start Date End Date Lovely Vicente MD PCP - General 04/16/[address] [place] [address] documented as of this encounter
--- OUTSIDE RECORDS SUMMARY | 2022-05-20 09:30 | XMS_ITS | Encounter Summary ---
:1945 Author Organization [facility] [place] [address] Care Team Providers Name Role Phone Lovely Vicente MD Primary Care Provider Reason for Visit Reason Onset Date Comments Follow-up 02/23/2022 Medication adjustmen t and new med Encounter Details Date Type Department Care Team Description 02/23/2022 Telephone Cardiology at [facility] Martha Comer, Follow-up ([facility] RN adjustbrandon t and new med) [place] [address] Social History Tobacco Use Types Packs/Day [...] the order for BMP and sent to [facility]. will call [facility] to make an appointment for [...] tablet) daily. She will correct his pill exercise planner to the new dose. Will need to check with STEPHANIE Poole about repeat BMP to recheck K+ level. If yes he will get the test done at [facility]. They are aware that he will need to make an appt at [facility] to get the test done. [...] if he qualifies for assistance from the [email or web address]. She is thankful for the assistance, as he is taking insulin that is very expensive too. Instructed to call this principal technical writer, if he does qualify for assistance from [email or web address] and that he has gotten the medication [...] Zulma Dolan MD [facility] [place], [place] [address] (Wo rk) 05/28/2022 Laboratory Appointment Lab 05/28/2022 Office Visit Cardiology Zulma Dolan MD [facility] [place] [address] Liz Poole PA [facility] [place] [address] 06/10/2022 Office Visit Dermatology Laura Scherer MD [facility] [address] [place], [place] [address] (Wo rk) documented as of this encounter Visit Diagnoses Not on filedocumented in this encounter Care Teams Geriatric Social Worker Relationship Specialty Start Date End Date Lovely Vicente MD PCP - General 04/16/[address] [place] [address] documented as of this encounter
--- OUTSIDE RECORDS SUMMARY | 2022-05-20 09:30 | XMS_ITS | Encounter Summary ---
:1945 Author Organization [facility] [place] [address] Care Team Providers Name Role Phone Lovely Vicente MD Primary Care Provider Encounter Details Date Type Department Care Team Description 02/24/2022 Orders Only Cardiology at [facility] Liz Poole, Chronic systolic heart [facility] [place] [address] Cardiology Dept [place], [place] [address] Social History Tobacco Use Types [...] [facility] [address] [place], [place] [address] (Wo rk) 05/28/2022 Laboratory Appointment Lab 05/28/2022 Office Visit Cardiology Zulma Dolan MD [facility] [place] [address] Liz Poole PA [facility] [place] [address] 06/10/2022 Office Visit Dermatology Laura Scherer MD [facility] ER DR [address] [place], [place] [address] (Wo rk) documented as of this encounter Visit Diagnoses Diagnosis Chronic systolic heart failure documented in this encounter Care Teams Warehouse Foreman Relationship Specialty Start Date End Date Lovely Vicente MD PCP - General 04/16/[address] [place] [address] documented as of this encounter
--- OUTSIDE RECORDS SUMMARY | 2022-05-20 09:30 | XMS_ITS | Encounter Summary ---
:1945 [place] [address] Care Team Providers Name Role Phone Lovely Vicente MD Primary Care Provider Reason for Visit Reason Onset Date Comments Follow-up 02/26/2022 Entresto start Encounter Details Date Type Department Care Team Description 02/26/[address] [facility] Martha Comer, Follow-up ([facility] RN start) [place] [address] Social History Tobacco Use Types Packs/Day [...] Cardiology Zulma Dolan MD [facility] [place], [place] [address] (Wo rk) 05/28/2022 Laboratory Appointment Lab 05/28/2022 Office Visit Cardiology Zulma Dolan MD [facility] [place] [address] Liz Poole PA [facility] [place] [address] 06/10/2022 Office Visit Dermatology Laura Scherer MD [facility] [address] [place], [place] [address] (Wo rk) documented as of this encounter Visit Diagnoses Not on filedocumented in this encounter Care Teams Ct Scan Technologist Relationship Specialty Start Date End Date Lovely iVcente MD PCP - General 04/16/[address] [place] [address] documented as of this encounter
--- OUTSIDE RECORDS SUMMARY | 2022-05-20 09:30 | XMS_ITS | Encounter Summary ---
:1945 Author Organization [facility] Address [facility] [place] [address] Care Team Providers Name Role Phone Lovely Vicente MD Primary Care Provider Reason for Visit Reason Onset Date Comments Medication Refill 04/09/2022 Jardiance Encounter Details Date Type Department Care Team Description 04/09/2022 Refill Cardiology at [facility] Liz Poole PA Medication Refill [facility] (Ja rdiance) [place] [address] Cardiology Dept [phone] [place], [place] [address] (Wo rk) Social History Tobacco [...] Dolan MD [facility] [place] [address] Liz Poole PA [facility] [place] [address] 06/10/2022 Office Visit Dermatology Laura Scherer MD [facility] ER DR [address] [place], [place] [address] (Wo rk) documented as of this encounter Visit Diagnoses Diagnosis Chronic systolic heart failure documented in this encounter Care Teams Physics Technician Relationship Specialty Start Date End Date Lovely Vicente MD PCP - General 04/16/[address] [place] [address] documented as of this encounter
--- OUTSIDE RECORDS SUMMARY | 2022-05-20 09:30 | XMS_ITS | Encounter Summary ---
:1945 Author Organization [facility] [place] [address] Care Team Providers Name Role Phone Lovely Vicente MD Primary Care Provider Reason for Visit Reason Onset Date Comments Medication Refill 03/11/2022 Encounter Details Date Type Department Care Team Description 03/06/2022 Refill Cardiology at [facility] Liz Poole PA Medication Refill [facility] Jorge mcnamara [facility] [place] [address] Cardiology Dept [phone] [place], [place] [address] (Wo rk) Social History Tobacco [...] [facility] [place] [address] (Wo rk) 05/28/2022 Laboratory Appointment Lab 05/28/2022 Office Visit Cardiology Zulma Dolan MD [facility] [place] [address] Liz Poole PA [facility] [place] [address] 06/10/2022 Office Visit Dermatology Laura Scherer MD [facility] ER DR [address] [place], [place] [address] (Wo rk) documented as of this encounter Visit Diagnoses Not on filedocumented in this encounter Care Teams Embedded Software Development Engineer Relationship Specialty Start Date End Date Lovely Vicente MD PCP - General 04/16/[address] [place] [address] documented as of this encounter
--- OUTSIDE RECORDS SUMMARY | 2022-05-20 09:31 | XMS_ITS | Encounter Summary ---
:1945 Author Organization [facility] [place] [address] Care Team Providers Name Role Phone Lovely Vicente MD Primary Care Provider Reason for Referral Diagnostic Test (Routine) - Authorized Specialty Diagnoses / Procedures Referred By Contact Refer red To Contact Cardiology Diagnoses Chronic systolic heart failure Liz Carrera PA [facility] Non-Inv Card Lab Procedures Echocardiogram Transthoracic [facility] [place] [address] [place] [address] Fax: Referral ID Status Reason Start Expiration Visits Visits Date Date Requested Authorized [id number] Authorized Specialty 02/19/2022 02/19/2023 1 1 Service Requested Encounter Details Date Type Department Care Team Description 02/19/2022 Office Visit Cardiology at [facility] Liz Carrera, Chronic systolic heart [facility] [place] [address] Cardiology Dept [phone] [place], [place] [address] Social History Tobacco Use Types [...] As per DC Summary - Admitted to [facility] on 12/08/21, transferred from [facility], respiratory distress with hypoxia [...] mg PO daily in place of Lasix. [place] is new for him and he will [...] Antiplatelet (DAPT) Recommendations above ? TTE from [facility] 12/08/21 ?? 07/28/2019 Echocardiogram: SUMMARY: [...] regurgitation present. 07/07/2019 - 07/21/2019 Zio Patch Gluing Pressman The patient had a minimum heart rate [...] 12.5 mg daily 6. Post-op atrial fibrillation [id number] (CHF, HTN, DM, vascular disease, thromboembolism) [...] Cardiology Zulma Dolan MD [facility] [place], [place] [address] (Wo rk) 05/28/2022 Laboratory Appointment Lab 05/28/2022 Office Visit Cardiology Zulma Dolan MD [facility] [place] [address] Liz Carrera PA [facility] [place] [address] 06/10/2022 Office Visit Dermatology Laura Scherer MD [facility] [address] [place], [place] [address] (Wo rk) Scheduled Orders Name Type Priority Associated Order Schedule Diagnoses Echocardiogram Echocardiography Routine Chronic systolic Expec vlad: Transthoracic heart failure 05/22/2022 (Approximate), Expires: 11/21/2022 documented as of this encounter Results (ABNORMAL) Basic Metabolic Panel (non-fasting) (02/19/2022 8:06 AM EDT) P athologist Signature Glucose Lvl 139 65 - 199 [facility] mg/dL [facility] Comment: Diabetes: >=200 mg/dL plus symp toms BUN 31 (H) 10 - 20 mg/dL [facility] Creatinine 1.53 (H) 0.80 - [...] 15 mmol/L [facility] Calcium 9.7 8.5 - 10.5 [...] Organization Address City/State/ZIP Code Phon e Number [place] [phone] (ABNORMAL) pro-Brain Natriuretic Peptide [...] City/State/[place] [address] documented in this encounter Visit Diagnoses Diagnosis Chronic systolic heart failure documented in this encounter Care Teams Shingles Roofer Relationship Specialty Start Date End Date Lovely Vicente MD PCP - General 04/16/[address] [place] [address] documented as of this encounter
--- OUTSIDE RECORDS SUMMARY | 2022-05-20 09:31 | XMS_ITS | Encounter Summary ---
:1945 Author Organization [facility] [place] [address] Care Team Providers Name Role Phone Lovely Vicente MD Primary Care Provider Reason for Visit Reason Onset Date Comments Medication Refill 12/12/2021 Torsemide Encounter Details Date Type Department Care Team Description 12/12/2021 Refill Cardiology at [facility] Janneth Padilla, Medication Refill [facility] STEPHANIE (Torsemide) [place] [address] CARDIOLOGY DEPT. [place], [place] [address] (Wo rk) Social History Tobacco [...] MD [facility] er [place], [place] [address] (Wo rk) 05/28/2022 Laboratory Appointment Lab 05/28/2022 Office Visit Cardiology Zulma Dolan MD [facility] [place] [address] Liz Poole PA [facility] [place] [address] 06/10/2022 Office Visit Dermatology Laura Scherer MD [facility] ER [address] [place], [place] [address] (Wo rk) documented as of this encounter Visit Diagnoses Diagnosis Chronic systolic heart failure documented in this encounter Care Teams Software Specialist Relationship Specialty Start Date End Date Lovely Vicente MD PCP - General 04/16/[address] [place] [address] documented as of this encounter
--- OUTSIDE RECORDS SUMMARY | 2022-05-20 09:31 | XMS_ITS | Encounter Summary ---
:1945 Author Organization [facility] [place] [address] Care Team Providers Name Role Phone Lovely Vicente MD Primary Care Provider Encounter Details Date Type Department Care Team Description 12/15/2021 Telephone Cardiology at [facility] Barbara Mera, [place] [address] Social History Tobacco Use Types Packs/Day Years Used Date Former Smoker Cigarettes 3 5 Quit: 07/26/18 69 Smokeless Tobacco: Never Used Alcohol Use Standard Drinks/Week Comments No 0 (1 standard drink = 0.6 oz pure alcoho l) Sex Assigned at Date Recorded Not on file documented as of this encounter Miscellaneous Notes Telephone Encounter - Barbaar Mera, RN - 12/15/2021 9:03 AM EDT [...] Appointment Cardiology Zulma Dolan MD [facility] [place], [place] [address] (Wo rk) 05/28/2022 Laboratory Appointment Lab 05/28/2022 Office Visit Cardiology Zulma Dolan MD [facility] [place] [address] Liz Poole PA [facility] [place] [address] 06/10/2022 Office Visit Dermatology Laura Scherer MD [facility] [address] [place], [place] [address] (Wo rk) documented as of this encounter Visit Diagnoses Not on filedocumented in this encounter Care Teams Rn Medical Inpatient Services Relationship Specialty Start Date End Date Lovely Vicente MD PCP - General 04/16/15 [facility] [address] [place] [address] documented as of this encounter
--- OUTSIDE RECORDS SUMMARY | 2022-05-20 09:31 | XMS_ITS | Encounter Summary ---
:1945 Author Organization [facility] Address [facility] [place] [address] Care Team Providers Name Role Phone Lovely Vicente MD Primary Care Provider Reason for Visit Auth/Cert Specialty Diagnoses / Procedures Referred By Contact Refer red To Contact Diagnoses ASCVD (arteriosclerotic cardiovascular disease) [I25.10] Vitaliy Nobles MD [facility] Procedures PRO PERC TRLUML CORONARY STENT W/ANGIO ONE ART/BRANCH CARDIAC CATHETERIZATION STENT PLACEMENT-SINGLE MAJOR CORONARY ARTERY OR BRANCH [facility] [place] [address] Referral ID Status Reason Start Date Expiration Date Visits Requ ested Visits Authorized [id number] 1 1 Encounter Details Date Type Department Care Team Description 01/30/2022 Hospital Encounter Short Stay Unit at Vitaliy Nobles, CVD (arteriosclerotic cardiovascular disease); Barbara Blue MD 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 Please follow up with your biological lab technician in the next 4-6 weeks. We have made a referral to cardiac rehab. Please see the attached instructions regarding care to your right wrist access site. AttachmentsThe following attachments cannot be sent through Care Everywhere. Coronary Angiogram: Post-op (Korean)documented in this encounter Medications at Time of [...] Murray RN - 01/30/2022 4:54 PM EDT [facility] Short Stay Unit Discharge Note All [...] PCI presenting for staged PCI to [facility]. The pt states he has been [...] PCI presenting for staged PCI to [facility]. The indications, expected benefits, and potential [...] had referred him to cardiac rehab at [facility] last month per HF team. He was waiting until this intervention before starting the program. Reviewed managing angina /use of sl nitroglycerin. Given parameters for home exercise. 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 We discussed short walks several times per day. Will send [facility] his discharge summary from this admission. The patient should be contacted by the Program within 1- 2 weeks from discharge. Brief Op Note - Vitaliy Nobles MD - 01/30/2022 10:19 AM EDT Images from the original note were not included. [facility] [place] [address] CORONARY ANGIOGRAM AND PERCUTANEOUS CORONARY INTERVENTION REPORT Patient: Don Fatima : 1945 MR number: [id number] Date of Service: 01/30/2022 Emd Special Education Teacher: Vitaliy Nobles MD Fellow: KEYON Elizabeth [...] a long 2.0 x 26 mm HARDEEP Whittier TUCKER stent and positioned it at the [...] using a 2.0 x 26 mm HARDEEP Whittier TUCKER stent. This completes the revascularization ofall [...] Zulma Dolan MD [facility] er [place] 0[address] (Wo rk) 05/28/2022 Laboratory Appointment Lab 05/28/2022 Office Visit Cardiology Zulma Dolan MD [facility] [place] [address] Liz Poole PA [facility] [place] [address] 06/10/2022 Office Visit Dermatology Laura Scherer MD [facility] ER [address] [place], [place] [address] (Wo rk) Scheduled Orders Name [...] LABORATORY Neutr Abs (ANC) 3.96 1.70 - [facility] 6.10 [facility] x10(3)/[facility] LABORATORY Lymphocytes % 16.3 % [facility] LABORATORY Lymphocytes Abs 0.9 0.9 - 3.2 [facility] x10(3)/[facility] LABORATORY Monocytes % 10.0 % [facility] LABORATORY Monocyte Abs 0.6 0.3 - 0.9 [facility] x10(3)/[facility] LABORATORY Eosinophils % 0.5 % [facility] LABORATORY Eosinophils Abs 0.0 0.0 - 0.4 [facility] x10(3)/[facility] LABORATORY Basophils % 0.5 % [facility] LABORATORY Basophils Abs 0.0 0.0 - 0.1 [facility] x10(3)/[facility] LABORATORY Immature Gran % 0.90 % ST [...] Organization Address City/State/[place] [address] (ABNORMAL) Hemogram (01/30/2022 2:12 PM EDT) Analysis Performed At Patho logist Time Signature WBC 5.5 4.0 - 9.5 [facility] x10(3)/[facility] LABORATORY RBC 4.30 (L) 4.58 - [place] 5.54 [facility] x10(6)/[facility] LABORATORY Hemoglobin 12.7 (L) 13.7 - [place] 16.5 g/dL [facility] LABORATORY Hematocrit 39.4 (L) 40.5 - [place] 48.5 % [facility] LABORATORY MCV 91.6 82.9 - [facility] 93.1 [facility] LABORATORY MCH 29.5 27.5 - [place] 32.1 pg [facility] LABORATORY MCHC 32.2 32.0 - [place] 35.7 g/dL [facility] LABORATORY Platelets 172 145 - 357 [facility] x10(3)/[facility] LABORATORY RDWSD 54.5 (H) 36.0 - [facility].0 [facility] LABORATORY RDWCV 16.4 (H) 11.4 - [facility] 13.8 % [facility] LABORATORY MPV 9.2 7.6 - 12.9 [facility] LABORATORY nRBC % Auto 0.0 % [facility] LABORATORY nRBC Abs Auto 0.000 0.000 - [facility] 0.000 [facility] x10(3)/[facility] LABORATORY Specimen Anatomical Collection Method Collection Time Receive d Time (Source) Location / / Volume Laterality Blood 01/30/2022 2:12 PM 2 2:37 EDT PM EDT Resulting Agency Comment Spec In Lab Eddi Elizabeth Jr., MD HEMATOLOGY ORDERABLES Performing Organization Address City/State/[place] [address] (ABNORMAL) Basic Metabolic Panel (non-fasting) (01/30/2022 2:12 PM EDT) P athologist Signature Glucose Lvl 163 65 - 199 [facility] mg/dL [facility] LABORATORY Comment: Diabetes: >=200 mg/dL plus symp toms BUN 30 (H) 10 - 20 mg/dL [facility] LABORATORY Creatinine 1.47 0.80 - 1.50 mg/dL [facility] LABORATORY Sodium 140 135 - [...] Organization Address City/State/[place] [address] POCT Glucose (01/30/2022 1:41 PM EDT) athologist Signature POC Glucose 148 65 - 199 [facility] mg/dL [facility] LABORATORY [...] [facility]/ZIP Code Phon e Number [address] POCT Glucose (01/30/2022 10:48 AM EDT) P athologist Signature POC Glucose 193 65 - 199 [facility] mg/dL [facility] LABORATORY Comment: Supplemental ranges: <140 mg/dL before meals <180 mg/dL all other times of the day Specimen Anatomical Collection Method Collection Time Receive d Time (Source) Location / / Volume Laterality Blood 01/30/2022 10:48 01/30/2022 AM EDT 10:48 AM EDT Vitaliy Sandra Nobles MD POINT OF CARE TEST ORDERABLE S Performing Organization Address [facility] [place] [address] EKG 12 Lead (01/30/2022 10:33 AM EDT) Component Value Ref Range Test Analysis Performed Pathologis t Method Time At Signature Ventricular rate 64 BPM MUSE SYSTEM Atrial Rate 64 BPM MUSE SYSTEM P-R Interval 162 ms MUSE SYSTEM QRS Duration 94 ms MUSE SYSTEM Q-T Interval 422 ms MUSE SYSTEM QTC Calculated 435 ms MUSE SYSTEM (Bezet) Calculated P Palmer 41 degrees MUSE SYSTEM Calculated R Palmer -27 degrees MUSE SYSTEM Calculated T Palmer 104 degrees MUSE SYSTEM INTERPRETATION Normal sinus rhythm MUSE SYSTEM Anterolateral infarct (cited on or before 09-DEC-2021) Abnormal ECG When compared with ECG of 10-DEC-2021 11:17, No significant change was found Confirmed by Gary Perez ([id number]) on 01/30/2022 5:57:5 2 PM Specimen Anatomical Collection Method Collection Time Receive d Time (Source) Location / / Volume Laterality 01/30/2022 10:33 01/30/2022 5:57 AM EDT PM EDT Vitaliy Sandra Nobles MD ECG ORDERABLES Performing Organization Address City/[facility]/ZIP Code Phon e Number MUSE SYSTEM CARDIAC CATHETERIZATION (01/30/2022 10:16 AM EDT) Anatomical Region Laterality Modality Other Specimen (Source) Anatomical Location Collection Method / Collectio n Time Received Time / Laterality Volume Narrative 01/30/2022 2:09 PM EDT ?[facility] ? Cardiac Cathete rization/Intervention Report ? Patient Name: Don Fatima. ? Procedure Date: 01/30/2022 ? A #: [id number] ? Primary Physician: Nobles, Vitaliy P ? Case #: [id number] ? File Name: [id number] ? Catheterization Order Number: [id number] ? [facility] ? Final Report [place], [place] ? Patient Name: ? Don Mccollum. Stewa rt ? ID#: ?[id number] ? : ?1945 ? Procedure Date: ? [...] ?designated as ASA Class III. Th e [facility] clinical frailty scale is 5: Mildly [...] procedure was Urgent. The indication for ?the lift slab operator visit is stable kn own CAD. Chest pain symptom assessment ?was: Typical Angina. ? Technique: ?A 6 SLFr sheath was inserted in the right radial artery utilizing the ?Seldinger technique. The right coronary artery was injected utilizing a ?IR 2.0 catheter. Coronary stent insertion was performed and the equipment ?utilized will be described in [facility] intervention summary section. 9,000 ?units of [...] an d a 3.[address] [facility] [address] [address] ??20 Mhz ?using Manual [...] A premounted 2.00 x 26 mm Hardeep Whittier (TUCKER) ? was deployed wi a maximum [...] Wedelivered along 2.0 x 26 mm HARDEEP Whittier ? TUCKER stent and p ositioned it [...] dose administered prior to arrival in the lift slab operator. ?Recommended anti-platelet/anti- thrombotic regimen: ?Continue aspirin [...] require ?modification of this regimen. C onsult [facility] Interventional Cardiology for [...] using a 2.0 x 26 mm HARDEEP Whittier TUCKER stent. ?This completes the revasculariz ation [...] Vitaliy Nobles MD - 03/06/2022 [facility] Cardiac Catheterization/Intervention Re port Patient Name: Don Fatima Procedure Date: 01/30/2022 A #: [id number] Primary Physician: Vitaliy Nobles Case #: [id number] File Name: [id number] Catheterization Order Number: [id number] [facility] Final Report [place], [place] Patient Name: Don Fatima ID#: [...] e was Urgent. The indication for the lift slab operator visit is stable known CAD. Chest [...] catheter and a 3.[address] 20 Mhz using Manual [...] atmospheres. A premounted 2.00 x 26 mm Stafford Whittier (TUCKER) was deployed with a maximum inflation [...] along 2. 0 x 26 mm HARDEEP Whittier TUCKER stent and positioned it at the [...] administered prior t o arrival in the lift slab operator. Recommended anti-platelet/anti-thrombot ic regimen: Continue aspirin [...] require modification of this regimen. Consult [facility] Interventional [...] using a 2.0 x 26 mm HARDEEP Whittier TUCKER stent. This completes the revascularization of [...] 212 (H) 65 - 199 [facility] mg/dL [facility] LABORATORY Comment: Supplemental ranges: <140 mg/dL before meals <180 mg/dL all other times of the day Specimen Anatomical Collection Method Collection Time Receive d Time (Source) Location / / Volume Laterality Blood 01/30/2022 9:04 AM 2 9:04 EDT AM EDT Vitaliy Nobles MD POINT OF CARE TEST ORDERABLE S Performing Organization Address City/State/[place] [address] (ABNORMAL) POCT Glucose (01/30/2022 8:10 AM EDT) athologist Signature POC Glucose 224 (H) 65 - 199 [facility] mg/dL 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 ASHD (arteriosclerotic heart disease) Coronary atherosclerosis of unspecified type of vessel, little traverse or graft ASCVD (arteriosclerotic cardiovascular d isease) Unspecified cardiovascular disease documented in this encounter Admitting Diagnoses Diagnosis CAD (coronary artery disease) Coronary atherosclerosis of unspecified type of vessel, little traverse or graft documented in this encounter Administered [...] niCARdipine (Cardene) (100 mcg/mL) dilution (DIRECTOR OF VENDOR MANAGEMENT) (CANCELED ) 0927 (Given - Provider: Vitaliy Nobles MD)0935 (Given - Provider: Vitaliy Nobles MD)0957 (Given - Provider: Vitaily Nobles MD)1005 (Given - Provider: Vitaliy Nobles [...] (Intra-Procedure) documented in this encounter Care Teams Body Component Engineer Relationship Specialty Start Date End Date Lovely Vicente MD PCP - General 04/16/[address] [place] [address] documented as of this encounter
--- OUTSIDE RECORDS SUMMARY | 2022-05-20 09:31 | XMS_ITS | Encounter Summary ---
:1945 Author Organization [facility] [place] [address] Care Team Providers Name Role Phone Lovely Vicente MD Primary Care Provider Encounter Details Date Type Department Care Team Description 12/24/2021 Orders Only Hand Coper Zulma Finch ASCVD (art eriosclerotic [facility] cardiovascular disease) [facility] [place] [place] [address] [place], [place] [phone] [address] (Work) [phone] Social History Tobacco Use Types Packs/Day Years [...] Dolan MD [facility] [address] [place] [address] (Wo rk) 05/28/2022 Laboratory Appointment Lab 05/28/2022 Office Visit Cardiology Zulma Dolan MD [facility] [place] [address] Liz Poole PA [facility] [place] [address] 06/10/2022 Office Visit Dermatology Laura Scherer MD [facility] [address] [place], [place] 0[address] (Wo rk) documented as of this encounter Visit Diagnoses Diagnosis ASCVD (arteriosclerotic cardiovascular d isease) Unspecified cardiovascular disease documented in this encounter Care Teams Home Health Care Respiratory Therapist Relationship Specialty Start Date End Date Lovely Vicente MD PCP - General 04/16/[address] [place] [address] documented as of this encounter
--- OUTSIDE RECORDS SUMMARY | 2022-05-20 09:31 | XMS_ITS | Encounter Summary ---
:1945 Author Organization [facility] [place] [address] Care Team Providers Name Role Phone Lovely Vicente MD Primary Care Provider Encounter Details Date Type Department Care Team Description 12/24/2021 Telephone Public Health at [facility] [place] [address] Social History Tobacco Use Types Packs/Day [...] Zulma Dolan MD [facility] [place] [address] (Wo rk) 05/28/2022 Laboratory Appointment Lab 05/28/2022 Office Visit Cardiology Zulma Dolan MD [facility] [place] [address] Liz Poole PA [facility] [place] [address] 06/10/2022 Office Visit Dermatology Laura Scherer MD [facility] ER DR [address] [place], [place] [address] (Wo rk) documented as of this encounter Visit Diagnoses Not on filedocumented in this encounter Care Teams Layer Out Plate Glass Relationship Specialty Start Date End Date Lovely Vicente MD PCP - General 04/16/[address] [place] [address] documented as of this encounter
--- OUTSIDE RECORDS SUMMARY | 2022-05-20 09:31 | XMS_ITS | Encounter Summary ---
:1945 [place] [address] Care Team Providers Name Role Phone Lovely Vicente MD Primary Care Provider Encounter Details Date Type Department Care Team Description 12/30/2021 Notes [facility] [place] [address] Social History Tobacco Use Types Packs/Day [...] Failure team. DX: HFrEF. Referral placed to [facility] documented in this encounter Plan of Treatment Upcoming Encounters Date Type Specialty Care Team Description 05/28/2022 Appointment Cardiology Zulma Dolan MD [facility] [place] [address] (Wo rk) 05/28/2022 Laboratory Appointment Lab 05/28/2022 Office Visit Cardiology Zulma Dolan MD [facility] [place] [address] Liz Poole PA [facility] [place] [address] 06/10/2022 Office Visit Dermatology Laura Scherer MD [facility] ER DR [address] [place], [place] [address] (Wo rk) documented as of this encounter Visit Diagnoses Not on filedocumented in this encounter Care Teams Threading Machine Tender Relationship Specialty Start Date End Date Lovely Vicente MD PCP - General 04/16/[address] [place] [address] documented as of this encounter
--- OUTSIDE RECORDS SUMMARY | 2022-05-20 09:31 | XMS_ITS | Encounter Summary ---
:1945 Author Organization [facility] Address [facility] [place] [address] Care Team Providers Name Role Phone Lovely Vicente MD Primary Care Provider Reason for Visit Auth/Cert Specialty Diagnoses / Procedures Referred By Contact Refer red To Contact Diagnoses ASCVD (arteriosclerotic cardiovascular disease) [I25.10] Vitaliy Nobles MD [facility] Procedures PRO PERC TRLUML CORONARY STENT W/ANGIO ONE ART/BRANCH CARDIAC CATHETERIZATION STENT PLACEMENT-SINGLE MAJOR CORONARY ARTERY OR BRANCH [facility] [address] Referral ID Status Reason Start Date Expiration Date Visits Requ ested Visits Authorized [id number] 1 1 Encounter Details Date Type Department Care Team Description 01/30/2022 Surgery Geotechnical Engineering Technician Asa Coulter MD CARDIAC CATHETERIZATION [facility] [place] [address] [place] [address] [phone] (Wo rk) Social History Tobacco Use Types [...] and Clopidogrel. 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 We have made a referral to cardiac rehab. Please see the attached instructions regarding care to your right wrist access site. AttachmentsThe following attachments cannot be sent through Care Everywhere. Coronary Angiogram: Post-op (Uzbek)documented in this encounter Medications at Time of [...] J, RN - 01/30/2022 4:54 PM EDT [facility] Short Stay Unit Discharge Note All relevant [...] recent PCI presenting for staged PCI to [facility]. The pt states he has [...] recent PCI presenting for staged PCI to [facility]. The indications, expected benefits, and [...] Sedation plan: moderate/conscious sedation - FULL CODE dEdi Elizabeth Jr, MD 01/30/2022 7:42 AM documented [...] [facility] [place] [id number] CORONARY ANGIOGRAM AND PERCUTANEOUS CORONARY INTERVENTION REPORT Patient: Don Fatima : 1945 MR number: [id number] Date of Service: 01/30/2022 Machinist Mate: Vitaliy Nobles MD Fellow: KEYON Elizabeth INDICATION: [...] a long 2.0 x 26 mm HARDEEP [place] TUCKER stent and positioned it at the [...] using a 2.0 x 26 mm HARDEEP [place] TUCKER stent. This completes the revascularization ofall [...] MD [facility] er Dr [place] [id number] (Wo rk) 05/28/2022 Laboratory Appointment Lab 05/28/2022 Office Visit Zulma Garrison MD [facility] [id number] Liz Poole PA [facility] [place] [id number] 06/10/2022 Office Visit Dermatology Laura Scherer MD [facility] ER DR [address] [facility] [place] [id number] (Wo rk) Scheduled Orders Name Type [...] LABORATORY Neutr Abs (ANC) 3.96 1.70 - [facility] 6.10 [facility] x10(3)/[facility] LABORATORY Lymphocytes % 16.3 % [facility] LABORATORY Lymphocytes Abs 0.9 0.9 - 3.2 [facility] x10(3)/[facility] LABORATORY Monocytes % 10.0 % [facility] LABORATORY Monocyte Abs 0.6 0.3 - 0.9 [facility] x10(3)/[facility] LABORATORY Eosinophils % 0.5 % [facility] LABORATORY Eosinophils Abs 0.0 0.0 - 0.4 [facility] x10(3)/[facility] LABORATORY Basophils % 0.5 % [facility] LABORATORY Basophils Abs 0.0 0.0 - 0.1 [facility] x10(3)/[facility] LABORATORY Immature Gran % 0.90 % [...] Organization Address City/State/[place] [address] (ABNORMAL) Hemogram (01/30/2022 2:12 PM EDT) Analysis Performed At Patho logist Time Signature WBC 5.5 4.0 - 9.5 [facility] x10(3)/[facility] LABORATORY RBC 4.30 (L) 4.58 - [facility] 5.54 [facility] x10(6)/[facility] LABORATORY Hemoglobin 12.7 (L) 13.7 - [place] 16.5 g/dL [facility] LABORATORY Hematocrit 39.4 (L) 40.5 - [place] 48.5 % [facility] LABORATORY MCV 91.6 82.9 - [place] 93.1 [facility] LABORATORY MCH 29.5 27.5 - [place] 32.1 pg [facility] LABORATORY MCHC 32.2 32.0 - [place] 35.7 g/dL [facility] LABORATORY Platelets 172 145 - 357 [facility] x10(3)/[facility] LABORATORY RDWSD 54.5 (H) 36.0 - [place] 45.0 [facility] LABORATORY RDWCV 16.4 (H) 11.4 - [place] 13.8 % [facility] LABORATORY MPV 9.2 7.6 - 12.9 [place] [facility] LABORATORY nRBC % Auto 0.0 % [facility] LABORATORY nRBC Abs Auto 0.000 0.000 - [place] 0.000 [facility] x10(3)/[facility] LABORATORY Specimen Anatomical Collection Method Collection Time Receive d Time (Source) Location / / Volume Laterality Blood 01/30/2022 2:12 PM 2 2:37 EDT PM EDT Resulting Agency Comment Spec In Lab Eddi Elizabeth Jr., MD HEMATOLOGY ORDERABLES Performing Organization Address City/State/[place] [address] (ABNORMAL) Basic Metabolic Panel (non-fasting) (01/30/2022 2:12 PM EDT) athologist Signature Glucose Lvl 163 65 - 199 [facility] LABORATORY Comment: Diabetes: >=200 mg/dL plus symp toms BUN 30 (H) 10 - 20 mg/dL [facility] LABORATORY Creatinine 1.47 0.80 - 1.50 mg/dL [facility] [...] Organization Address City/State/[place] [address] POCT Glucose (01/30/2022 1:41 PM EDT) athologist Signature POC Glucose 148 65 - 199 [facility] mg/dL [facility] LABORATORY Comment: [...] City/[facility]/ZIP Code Phon e Number [address] POCT Glucose (01/30/2022 10:48 AM EDT) P athologist Signature POC Glucose 193 65 - 199 [facility] LABORATORY Comment: Supplemental ranges: <140 mg/dL before meals <180 mg/dL all other times of the day Specimen Anatomical Collection Method Collection Time Receive d Time (Source) Location / / Volume Laterality Blood 01/30/2022 10:48 01/30/2022 AM EDT 10:48 AM EDT Vitaliy Nobles MD POINT OF CARE TEST ORDERABLE S Performing Organization Address [facility] [place] [address] EKG 12 Lead (01/30/2022 10:33 AM EDT) Component Value Ref Range Test Analysis Performed Pathologis t Method Time At Signature Ventricular rate 64 BPM MUSE SYSTEM Atrial Rate 64 BPM MUSE SYSTEM P-R Interval 162 ms MUSE SYSTEM QRS Duration 94 ms MUSE SYSTEM Q-T Interval 422 ms MUSE SYSTEM QTC Calculated 435 ms MUSE SYSTEM (Bezet) Calculated P Fingal 41 degrees MUSE SYSTEM Calculated R Fing[place] -27 degrees MUSE SYSTEM Calculated T Fing[place] 104 degrees MUSE SYSTEM INTERPRETATION Normal sinus rhythm MUSE SYSTEM Anterolateral infarct (cited on or before 09-DEC-2021) Abnormal ECG When compared with ECG of 10-DEC-2021 11:17, No significant change was found Confirmed by Gary Perez ([id number]) on 01/30/2022 5:57:5 2 PM Specimen Anatomical Collection Method Collection Time Receive d Time (Source) Location / / Volume Laterality 01/30/2022 10:33 01/30/2022 5:57 AM EDT PM EDT Vitaliy Nobles MD ECG ORDERABLES Performing Organization Address City/[facility]/ZIP Code Phon e Number MUSE SYSTEM CARDIAC CATHETERIZATION (01/30/2022 10:16 AM EDT) Anatomical Region Laterality Modality Other Specimen (Source) Anatomical Location Collection Method / Collectio n Time Received Time / Laterality Volume Narrative 01/30/2022 2:09 PM EDT ?[facility] ? Cardiac Cathete rization/Intervention Report ? Patient Name: Don Fatima. ? Procedure Date: 01/30/2022 ? A #: [id number] ? Primary Physician: Nobles, Vitaliy P ? Case #: [id number] ? File Name: [id number] ? Catheterization Order Number: [id number] ? [facility] ? Final Report [place], [place] ? Patient Name: ? Don E. Stewa rt ? ID#: ?[id number] ? : ?1945 ? Procedure Date: ? [...] was Urgent. The indication for ?the blood bank laboratory professional visit is stable kn own CAD. [...] guiding catheter an d a 3.5 Fr [facility] [address] ??20 Mhz ?using Manual pullback. ??Imagin [...] A premounted 2.00 x 26 mm Hardeep [place] (TUCKER) ? was deployed wi a maximum [...] Wedelivered along 2.0 x 26 mm HARDEEP [place] ? TUCKER stent and p ositioned it [...] administered prior to arrival in the blood bank laboratory professional. ?Recommended anti-platelet/anti- thrombotic regimen: ?Continue aspirin [...] ?modification of this regimen. [facility] ?questions. ?The 1 year [...] using a 2.0 x 26 mm HARDEEP [place] TUCKER stent. ?This completes the revasculariz ation [...] Procedure Note Vitaliy Nobles MD - 03/06/2022 [facility] Cardiac Catheterization/Intervention Re port Patient Name: Don Fatima Procedure Date: 01/30/2022 A #: [id number] Primary Physician: Vitaliy Nobles Case #: [id number] File Name: [id number] Catheterization Order Number: [id number] [facility] Final Report [place], [place] Patient Name: Don Fatima ID#: [...] was Urgent. The indication for the blood bank laboratory professional visit is stable known CAD. Chest [...] 1.5 guiding catheter and a 3.5 Fr [facility] [address] 20 Mhz using Manual pullback. Imaging [...] A premounted 2.00 x 26 mm Hardeep [place] (TUCKER) was deployed with a maximum inflation [...] along 2. 0 x 26 mm HARDEEP [place] TUCKER stent and positioned it at the [...] prior t o arrival in the blood bank laboratory professional. Recommended anti-platelet/anti-thrombot ic regimen: Continue aspirin [...] using a 2.0 x 26 mm HARDEEP [place] TUCKER stent. This completes the revascularization of [...] POC Glucose 212 (H) 65 - 199 [facility] mg/dL [facility] LABORATORY Comment: Supplemental ranges: <140 mg/dL before meals <180 mg/dL all other times of the day Specimen Anatomical Collection Method Collection Time Receive d Time (Source) Location / / Volume Laterality Blood 01/30/2022 9:04 AM 2 9:04 EDT AM EDT Vitaliy Nobles MD POINT OF CARE TEST ORDERABLE S Performing Organization Address City/State/[place] [address] (ABNORMAL) POCT Glucose (01/30/2022 8:10 AM EDT) athologist Signature POC Glucose 224 (H) 65 - 199 [facility] mg/dL [facility] LABORATORY Comment: Supplemental ranges: <140 mg/dL before meals <180 mg/dL all other times of the day Specimen Anatomical Collection Method Collection Time Receive d Time (Source) Location / / Volume Laterality Blood 01/30/2022 8:10 AM 2 8:10 EDT AM EDT Vitaliy Nobles MD POINT OF CARE TEST ORDERABLE S Performing Organization Address City/State/[place] [address] documented in this encounter Visit Diagnoses Diagnosis ASCVD (arteriosclerotic cardiovascular d isease) Unspecified cardiovascular disease 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 ASHD (arteriosclerotic heart disease) Coronary atherosclerosis of unspecified type of vessel, [place] or graft ASCVD (arteriosclerotic cardiovascular d isease) Unspecified cardiovascular disease documented in this encounter Admitting Diagnoses Diagnosis CAD (coronary artery disease) Coronary atherosclerosis of unspecified type of vessel, [place] or graft documented in this encounter Administered [...] Given 02/2022 10:11 AM EDT 100 mcg (BOILING TUB OPERATOR) ONCE PRN, Starting on Wed01/30/22 at [...] Procedure), Routine niCARdipine (Cardene) (100 mcg/mL) dilution (BOILING TUB OPERATOR) (CANCELED ) 0927 (Given - Provider: [...] (Intra-Procedure) documented in this encounter Care Teams Button Broacher Relationship Specialty Start Date End Date Lovely Vicente MD PCP - General 04/16/[address] [place] [address] documented as of this encounter
--- OUTSIDE RECORDS SUMMARY | 2022-05-20 09:31 | XMS_ITS | Encounter Summary ---
:1945 [place] [address] Care Team Providers Name Role Phone Lovely Vicente MD Primary Care Provider Encounter Details Date Type Department Care Team Description 12/25/2021 Office Visit Cardiology at [facility] Liz Poloe, Chronic systolic heart [facility] [place] [address] Cardiology Dept [phone] [place], [place] [address] Social History Tobacco Use Types [...] [facility] 12[facility], transferred from [facility], respiratory distress with hypoxia [...] mg PO daily in place of Lasix. [place] is new for him and he will [...] (DAPT) Recommendations above ? TTE from [facility] 12/08/21 ?? 07/28/2019 Echocardiogram: SUMMARY: 1. [...] regurgitation present. 07/07/2019 - 07/21/2019 Zio Patch Rv Servicer The patient had a minimum heart rate [...] hyperkalemia 4.9 today 6. Post-op atrial fibrillation [id number] (CHF, HTN, DM, vascular disease, thromboembolism) Eliquis 7. PAD 08/06/2017: Right 1st, 2nd, 3rd toe amputation 08/11/2017: Left??femoral arterial access, RLE??angiogram, Balloon angioplasty of R PT 10/25/2017: right popliteal-pedal bypass at [facility] 8. Hypothyrodism S/p thyroidectomy for goiter Levothyroxine ?? Plan: 1 month follow up with labs Liz Poole PA-C 12/25/2021 documented in this encounter Plan of Treatment Upcoming Encounters Date Type Specialty Care Team Description 05/28/2022 Appointment Cardiology Zulma Dolan MD [facility] [address] [place], [place] [address] (Wo rk) 05/28/2022 Laboratory Appointment Lab 05/28/2022 Office Visit Cardiology Zulma Dolan MD [facility] [place] [address] Liz Poole PA [facility] [place] [address] 06/10/2022 Office Visit Dermatology Laura Scherer MD [facility] ER DR [address] [place], [place] [address] (Mikayla alcaraz) documented as of this encounter Results (ABNORMAL) pro-Brain Natriuretic Peptide (12/25/2021 7:46 AM EDT) athologist Signature ProBNP 1,380 (H) <=124 [facility] pg[facility]mL [facility] LABORATORY Specimen Anatomical Collection Method Collection Time Receive d Time (Source) Location / / Volume Laterality Blood 12/25/2021 7:46 AM 8:01 EDT AM EDT Resulting Agency Comment Spec In Lab Zulma Plunkett MD CHEMISTRY ORDERABLES Performing Organization Address City/State/[place] [address] (ABNORMAL) Basic Metabolic Panel (non-fasting) (12/25/2021 7:46 AM EDT) athologist Signature Glucose Lvl 272 (H) 65 - 199 [facility] mg/dL [facility] LABORATORY Comment: Diabetes: >=200 mg/dL plus symp toms BUN 62 (H) 10 - 20 mg/dL [facility] LABORATORY Creatinine 1.81 (H) 0.80 - 1.50 mg/dL [place] [...] Organization Address City/State/[place] [address] documented in this encounter Visit Diagnoses Diagnosis Chronic systolic heart failure documented in this encounter Care Teams Research & Analytics Manager Relationship Specialty Start Date End Date Lovely Vicente MD PCP - General 04/16/[address] [place] [address] documented as of this encounter
--- OUTSIDE RECORDS SUMMARY | 2022-05-20 09:31 | XMS_ITS | Encounter Summary ---
:1945 Author Organization [facility] [place] [address] Care Team Providers Name Role Phone Lovely Vicente MD Primary Care Provider Reason for Visit Auth/Cert Specialty Diagnoses / Procedures Referred By Contact Refer red To Contact Diagnoses ASCVD (arteriosclerotic cardiovascular disease) [I25.10] Vitaliy Nobles MD [facility] Procedures PRO PERC TRLUML CORONARY STENT W/ANGIO ONE ART/BRANCH CARDIAC CATHETERIZATION STENT PLACEMENT-SINGLE MAJOR CORONARY ARTERY OR BRANCH [facility] [place] [address] Referral ID Status Reason Start Date Expiration Date Visits Requ ested Visits Authorized [id number] 1 1 Encounter Details Date Type Department Care Team Description 01/30/2022 Laboratory Lab 3L Katalina ASCVD (arterios clerotic Appointment [facility] cardiovas cular disease) [place] [address] Social History Tobacco Use Types Packs/Day Years [...] Cardiology Zulma Dolan MD [facility] [place], [place] [address] (Wo rk) 05/28/2022 Laboratory Appointment Lab 05/28/2022 Office Visit Cardiology Zulma Dolan MD [facility] [place] [address] Liz Poole PA [facility] [place] [address] 06/10/2022 Office Visit Dermatology Laura Scherer MD [facility] DR [address] [place], [place] [address] (Wo rk) documented as of [...] (ABNORMAL) Differential, Automated (01/30/2022 7:19 AM EDT) [facility] gist Method Time Signature Neutrophils % 77.9 % [facility] LABORATORY Neutr Abs (ANC) 5.31 1.70 - [facility] 6.10 [facility] x10(3)/[facility] LABORATORY Lymphocytes % 12.0 % [facility] LABORATORY Lymphocytes Abs 0.8 (L) 0.9 - 3.2 [facility] x10(3)/[facility] LABORATORY Monocytes % 8.1 % [facility] LABORATORY Monocyte Abs 0.6 0.3 - 0.9 [facility] x10(3)/[facility] LABORATORY Eosinophils % 0.4 % [facility] LABORATORY Eosinophils Abs 0.0 0.0 - 0.4 [facility] x10(3)/[facility] LABORATORY Basophils % 0.6 % [facility] LABORATORY Basophils Abs 0.0 0.0 - 0.1 [facility] x10(3)/[facility] LABORATORY Immature Gran % 1.00 % [facility] [...] Abs 0.07 (H) 0.00 - 0.04 x10(3)/[facility] LABORATORY Specimen Anatomical Collection Method Collection Time Receive d Time (Source) Location / / Volume Laterality Blood 01/30/2022 7:19 AM 7:21 EDT AM EDT Resulting Agency Comment Spec In Lab Zulma BROWN HEMATOLOGY ORDERABLES Performing Organization Address City/State/Z[place] [address] (ABNORMAL) Hemogram (01/30/2022 7:19 AM EDT) Analysis Performed At Patho logist Time Signature WBC 6.8 4.0 - 9.5 [facility] x10(3)/[facility] LABORATORY RBC 4.32 (L) 4.58 - [facility] 5.54 [facility] x10(6)/[facility] LABORATORY Hemoglobin 13.0 (L) 13.7 - [facility] g/dL [facility] LABORATORY Hematocrit 39.8 (L) 40.5 - [facility] 48.5 % [facility] LABORATORY MCV 92.1 82.9 - [facility] 93.1 fL [facility] LABORATORY MCH 30.1 27.5 - [facility] 32.1 pg [facility] LABORATORY MCHC 32.7 32.0 - [place] 35.7 g/dL [facility] LABORATORY Platelets 172 145 - 357 [facility] x10(3)/[facility] LABORATORY RDWSD 54.5 (H) 36.0 - [place] 45.0 [facility] LABORATORY RDWCV 16.2 (H) 11.4 - [facility] 13.8 % [facility] LABORATORY MPV 9.0 7.6 - 12.9 [facility] LABORATORY nRBC % Auto 0.0 % [facility] LABORATORY nRBC Abs Auto 0.000 0.000 - [facility] 0.000 [facility] x10(3)/[facility] LABORATORY Specimen Anatomical Collection Method Collection Time Receive d Time (Source) Location / / Volume Laterality Blood 01/30/2022 7:19 AM 7:21 EDT AM EDT Resulting Agency Comment Spec In Lab Zulma BROWN HEMATOLOGY ORDERABLES Performing Organization Address City/State/ZIP [place] [address] (ABNORMAL) Basic Metabolic Panel (non-fasting) (01/30/2022 7:19 AM EDT) P athologist Signature Glucose Lvl 237 (H) 65 - 199 [facility] mg/dL [facility] LABORATORY Comment: [...] City/State/ZIP Code Phon e Number [place] [id number] HOSP[address] LAB[address] documented in this encounter Visit Diagnoses Diagnosis ASCVD (arteriosclerotic cardiovascular d isease) Unspecified cardiovascular disease documented in this encounter Care Teams School Laboratory Technician Relationship Specialty Start Date End Date Lovely Vicente MD PCP - General 04/16/[address] [place] [address] documented as of this encounter
--- OUTSIDE RECORDS SUMMARY | 2022-05-20 09:31 | XMS_ITS | Encounter Summary ---
:1945 Author Organization [facility] [place] [address] Care Team Providers Name Role Phone Lovely Vicente MD Primary Care Provider Encounter Details Date Type Department Care Team Description 02/19/2022 Laboratory Appointment Lab 3L [facility] [place] [phone] Social History Tobacco Use Types Packs/Day Years [...] MD [facility] [place], [place] [address] (Wo rk) 05/28/2022 Laboratory Appointment Lab 05/28/2022 Office Visit Cardiology Zulma Dolan MD [facility] [place] [address] Liz Poole PA [facility] [place] [address] 06/10/2022 Office Visit Dermatology Laura Scherer MD [facility] [address] [place] [address] (Wo rk) documented as of this encounter [...] (ABNORMAL) Differential, Automated (02/19/2022 8:06 AM EDT) [facility] gist Method Time Signature Neutrophils % 76.0 % [facility] Neutr Abs (ANC) 5.49 1.70 - [facility] 6.10 [facility] x10(3)/[facility] LABORATORY Lymphocytes % 10.8 % [facility] Lymphocytes Abs 0.8 (L) 0.9 - 3.2 [facility] x10(3)/[facility] LABORATORY Monocytes % 10.2 % [facility] Monocyte Abs 0.7 0.3 - 0.9 [facility] x10(3)/[facility] LABORATORY Eosinophils % 1.2 % [facility] Eosinophils Abs 0.1 0.0 - 0.4 [facility] x10(3)/[facility] LABORATORY Basophils % 0.8 % [facility] Basophils Abs 0.1 0.0 - 0.1 [facility] x10(3)/[facility] LABORATORY Immature Gran % 1.00 % [facility] [...] Organization Address City/State/[place] [address] (ABNORMAL) Hemogram (02/19/2022 8:06 AM EDT) Analysis Performed At Patho logist Time Signature WBC 7.2 4.0 - 9.5 [facility] x10(3)/[facility] LABORATORY RBC 4.41 (L) 4.58 - [facility] 5.54 [facility] x10(6)/[facility] LABORATORY Hemoglobin 13.2 (L) 13.7 - [facility] 16.[facility] g/dL [facility] Hematocrit 40.9 40.5 - [facility] 48.5 % [facility] MCV 92.7 82.9 - [facility] 93.1 [facility] LABORATORY MCH 29.9 27.5 - [facility] 32.1 pg [facility] MCHC 32.3 32.0 - [facility] 35.7 g/dL [facility] Platelets 191 145 - 357 [facility] x10(3)/[facility] LABORATORY RDWSD 53.6 (H) 36.0 - [facility] 45.0 [facility] LABORATORY RDWCV 15.6 (H) 11.4 - [facility] 13.8 % [facility] MPV 8.7 7.6 - 12.9 [facility] LABORATORY nRBC % Auto 0.0 % [facility] nRBC Abs Auto 0.000 0.000 - [facility] 0.000 [facility] x10(3)/[facility] LABORATORY Specimen Anatomical Collection Method Collection Time Receive d Time (Source) Location / / Volume Laterality Blood 02/19/2022 8:06 AM 2 8:09 EDT AM EDT Resulting Agency Comment Spec In Lab Liz BROWN HEMATOLOGY ORDERABLES Performing Organization Address City/[facility]/[place] [address] (ABNORMAL) pro-Brain Natriuretic Peptide (02/19/2022 8:06 AM EDT) P athologist Signature ProBNP 984 (H) <=449 pg/mL [facility] Specimen Anatomical Collection Method Collection Time Receive d Time (Source) Location / / Volume Laterality Blood 02/19/2022 8:06 AM 2 8:09 EDT AM EDT Resulting Agency Comment Spec In Lab Zulma Plunkett MD CHEMISTRY ORDERABLES Performing Organization Address City/State/[place] [address] (ABNORMAL) Basic Metabolic Panel (non-fasting) (02/19/2022 8:06 AM EDT) P athologist Signature Glucose Lvl 139 65 - 199 [facility] mg/dL [facility] Comment: Diabetes: [...] 107 mmol/L [facility] CO2 31 22 - 31 mmol/L [facility] [...] Organization Address City/State/[place] [address] documented in this encounter Visit Diagnoses Diagnosis Chronic systolic heart failure documented in this encounter Care Teams Chief Operator Synthesis Relationship Specialty Start Date End Date Lovely Vicente MD PCP - General 04/16/[address] [place] [address] documented as of this encounter
--- OUTSIDE RECORDS SUMMARY | 2022-05-20 09:31 | XMS_ITS | Encounter Summary ---
:1945 Author Organization [facility] [place] [address] Care Team Providers Name Role Phone Lovely Vicente MD Primary Care Provider Encounter Details Date Type Department Care Team Description 12/12/2021 Telephone Cardiology at [facility] [place] [phone] Social History Tobacco Use Types Packs/Day [...] - 12/12/2021 11:36 AM EDT RTC to [employer] regarding pharmacists questions as to whether [...] [facility] [address] [place] [address] (Wo rk) 05/28/2022 Laboratory Appointment Lab 05/28/2022 Office Visit Cardiology Zulma Dolan MD [facility] [place] [address] [facility] [place] [address] 06/10/2022 Office Visit Dermatology Laura Scherer MD [facility] [address] [place], [place] [address] (Wo rk) documented as of this encounter Visit Diagnoses Not on filedocumented in this encounter Care Teams Hand Woven Carpet And Rug Mender Relationship Specialty Start Date End Date Lovely Vicente MD PCP - General 04/16/[address] [place] [address] documented as of this encounter
--- OUTSIDE RECORDS SUMMARY | 2022-05-20 09:31 | XMS_ITS | Encounter Summary ---
:1945 Author Organization [facility] [place] [address] Care Team Providers Name Role Phone Lovely Vicente MD Primary Care Provider Reason for Visit Reason Onset Date Comments Advice Only 01/28/2022 Encounter Details Date Type Department Care Team Description 01/28/2022 Telephone Cardiology at [facility] Chitra Angela, [place] [address] Social History Tobacco Use Types Packs/Day [...] assists patient with medications. Number for label designer scheduling given and she will call them to verify this information Meds reviewed. As per our form from label designer Eliquis hold for 48 hours prior. Pt [...] Dolan MD [facility] [address] [place], [place] [address] (Wo rk) 05/28/2022 Laboratory Appointment Lab 05/28/2022 Office Visit Cardiology Zulma Dolan MD [facility] [place] [address] Liz Poole PA [facility] [place] [address] 06/10/2022 Office Visit Dermatology Laura Scherer MD [facility] DR [address] [place], [place] [address] (Wo rk) documented as of this encounter Visit Diagnoses Not on filedocumented in this encounter Care Teams Major General Relationship Specialty Start Date End Date Lovely Vicente MD PCP - General 04/16/[address] [place] [address] documented as of this encounter
--- OUTSIDE RECORDS SUMMARY | 2022-05-20 09:31 | XMS_ITS | Encounter Summary ---
:1945 Author Organization [facility] [place] [address] Care Team Providers Name Role Phone Lovely Vicente MD Primary Care Provider Encounter Details Date Type Department Care Team Description 12/25/2021 Laboratory Appointment Lab 3L [facility] [place] [phone] Social History Tobacco Use Types Packs/Day Years [...] MD [facility] er [place], [place] [address] (Wo rk) 05/28/2022 Laboratory Appointment Lab 05/28/2022 Office Visit Cardiology Zulma Dolan MD [facility] [place] [address] [facility] [place] [address] 06/10/2022 Office Visit Dermatology Laura Scherer MD [facility] DR [address] [place] [address] (Wo rk) documented as of this encounter [...] (ANC) 9.37 (H) 1.70 - [facility] 6.10 [facility] x10(3)/[facility] LABORATORY Lymphocytes % 7.1 % [facility] LABORATORY Lymphocytes Abs 0.8 (L) 0.9 - 3.2 [facility] x10(3)/[facility] LABORATORY Monocytes % 8.8 % [facility] LABORATORY Monocyte Abs 1.0 (H) 0.3 - 0.9 [facility] x10(3)/[facility] LABORATORY Eosinophils % 0.4 % [facility] LABORATORY Eosinophils Abs 0.0 0.0 - 0.4 [facility] x10(3)/[facility] LABORATORY Basophils % 0.4 % [facility] LABORATORY Basophils Abs 0.0 0.0 - 0.1 [facility] x10(3)/[facility] LABORATORY Immature Gran % 0.70 % [facility] [...] 0.08 (H) 0.00 - 0.04 x10(3)/[facility] LABORATORY Specimen Anatomical Collection Method Collection Time Receive d Time (Source) Location / / Volume Laterality Blood 12/25/2021 7:46 AM 8:01 EDT AM EDT Resulting Agency Comment Spec In Lab Liz BROWN HEMATOLOGY ORDERABLES Performing Organization Address City/State/ZIP Code Phon e Number [place] [id number] HOS[address] LAB[address] (ABNORMAL) Hemogram (12/25/2021 7:46 AM EDT) Analysis Performed At Patho logist Time Signature WBC 11.4 (H) 4.0 - 9.5 [facility] x10(3)/[facility] LABORATORY RBC 4.23 (L) 4.58 - [facility] 5.54 [facility] x10(6)/[facility] LABORATORY Hemoglobin 12.3 (L) 13.7 - [facility] 16.5 g/dL [facility] Hematocrit 37.7 (L) 40.5 - [facility] RYAN 48.5 % [facility] LABORATORY MCV 89.1 82.9 - [facility] RYAN 93.1 [facility] LABORATORY MCH 29.1 27.5 - [place] 32.[address] [facility] LABORATORY MCHC 32.6 32.0 - [facility] 35.7 g/dL [facility] LABORATORY Platelets 215 145 - 357 [facility] x10(3)/[facility] LABORATORY RDWSD 49.8 (H) 36.0 - [place] R[place]AN 45.0 [facility] RDWCV 15.2 (H) 11.4 - [facility] RYAN 13.8 % [facility] LABORATORY MPV 9.2 7.6 - 12.9 [facility] LABORATORY nRBC % Auto 0.0 % [facility] LABORATORY nRBC Abs Auto 0.000 0.000 - [facility] 0.000 [facility] x10(3)/[facility] LABORATORY Specimen Anatomical Collection Method Collection Time Receive d Time (Source) Location / / Volume Laterality Blood 12/25/2021 7:46 AM 8:01 EDT AM EDT Resulting Agency Comment Spec In Lab Liz BROWN HEMATOLOGY ORDERABLES Performing Organization Address City/State/[place] [address] (ABNORMAL) Basic Metabolic Panel (non-fasting) (12/25/2021 7:46 AM EDT) P athologist Signature Glucose Lvl 272 (H) 65 - 199 [facility] mg/dL [facility] LABORATORY Comment: Diabetes: >=200 mg/dL plus symp toms BUN 62 (H) 10 - 20 mg/dL [facility] LABORATORY Creatinine 1.81 (H) [...] [facility] LABOR[facility]ORY Calcium 9.4 8.5 [...] Plunkett MD CHEMISTRY ORDERABLES Performing Organization Address City/[facility]/[place] [address] (ABNORMAL) pro-Brain Natriuretic Peptide (12/25/2021 7:46 AM EDT) P athologist Signature ProBNP 1,380 (H) <=124 [facility] pg/mL [facility] LABORATORY Specimen Anatomical Collection Method Collection Time Receive d Time (Source) Location / / Volume Laterality Blood 12/25/2021 7:46 AM 2 8:01 EDT AM EDT Resulting Agency Comment Spec In Lab Zulma Plunkett MD CHEMISTRY ORDERABLES Performing Organization Address City/[facility]/ZIP [facility] [place] [address] documented in this encounter Visit Diagnoses Diagnosis Chronic systolic heart failure documented in this encounter Care Teams Air Conditioning Specialist Relationship Specialty Start Date End Date Lovely Vicente MD PCP - General 04/16/[address] [place] [address] documented as of this encounter
--- OUTSIDE RECORDS SUMMARY | 2022-05-20 09:32 | XMS_ITS | Encounter Summary ---
:1945 Author Organization [facility] [place] [address] Care Team Providers Name Role Phone Lovely Vicente MD Primary Care Provider Reason for Visit Auth/Cert Specialty Diagnoses / Procedures Referred By Contact Refer red To Contact Diagnoses NSTEMI Procedures emerg ipi Referral ID Status Reason Start Date Expiration Date Visits Requ ested Visits Authorized [id number] 1 1 Encounter Details Date Type Department Care Team Description 12/10/2021 Surgery Obstetric Assistant Asa Coulter MD CARDIAC CATHETERIZATION [facility] [place] [address] [place] [address] [phone] (Wo rk) Social History Tobacco Use Types [...] Don Fatima Patient Age: 76 y.o. Language: Malaysian Race: White Ethnicity: Not nor Admit date: [...] Peter PA-C Kelly LaFlamme PA-C Cardiovascular Medicine [phone] Discharge Diagnoses (Hospital Problems) and Secondary Diagnoses [...] 3.75 guiding catheter and a 3.5 Fr [facility] 20 Mhz using Manual pullback. Imaging was successful. Image quality was good. The ostial LCX showed moderate diffuse atherosclerotic plaque with scattered three quadrant calcification. Measurements were performed after pre-dilation. Post Intervention: The stent was well expanded and apposed. Intravascular Ultrasound was performed in the distal LM using a 7 Fr EBU 3.75 guiding catheter and a 3.5 Fr [facility] 20 Mhz using Manual pullback. Imaging was [...] require modification of this regimen. Consult [facility] [...] appointments: During 8am-5pm Wednesday through Wednesday call [phone] to speak with a nurse in the cardiology clinic All other times call [phone] and ask to speak to the marketing development representative building construction foreman. Return to work: One week Driving: No driving for 48 hours after catheterization. Follow up Appointments: PCP Lovely Vicente MD [phone] to see patient at the end of December for annual check up. Patient to see Dr. Lorenzana at 1120 am at December 19 for a post hospital check up. Glass Bead Maker Dr. De Oliveira to see you in [facility]. Left a message for office to set a date and time. Please call [phone] Nobles to see the patient for a same day cath in 2-3 weeks from now. Office to call with a date and time. For questions please call [phone] Home oxygen therapy: N/A Arrangements for VNA/home care: none Future Appointments and Orders Future Orders Complete By Expires Basic Metabolic Panel (non-fasting) [LAB15 Custom] 12/19/2021 (Approximate) 12/12/2022 Process Instructions: INCLUDES: Calcium, BUN, Creat, GFR, Glucose, Lytes Scheduling Instructions: Comments: Questions: Referral to Cardiac Rehab [[id number] Custom] As directed Process Instructions: If no [...] appointments: During 8am-5pm Wednesday through Wednesday call [phone] to speak with a nurse in the cardiology clinic All other times call [phone] and ask to speak to the marketing development representative building construction foreman. Return to work: One week Driving: No driving for 48 hours after catheterization. Follow up Appointments: PCP Lovely Vicente MD [phone] to see patient at the end of December for annual check up. Patient to see Dr. Lorenzana at 1120 am at December 19 for a post hospital check up. Glass Bead Maker Dr. De Oliveira to see you in [facility]. Left a message for office to set a date and time. Please call [phone] Nobles to see the patient for a same day cath in 2-3 weeks from now. Office to call with a date and time. For questions please call [phone] Home oxygen therapy: N/A Arrangements for VNA/home [...] Progress Note Patient Name: Don Fatima Service: TOOL STORAGE ATTENDANT / PA Responsible Attending: Ifeanyi Truong MD [...] with MD Janneth Neville PA 12/12/2021 Pager [phone] Associated attestation - Ifeanyi Truong MD - [...] for each meal) Desirae Jett APRN [facility] Endocrinology Diabetes Management Pager [phone] 20 minutes of this 35 minute visit [...] Progress Note Patient Name: Don Fatima Service: TOOL STORAGE ATTENDANT / PA Responsible Attending: Iker Cuevas MD [...] and answered his questions. Iker Cuevas MD [facility] Total time spent on review of records prior to visit, face to face time with patient during visit, documentation, and coordination of care with other clinicians: 25 minutes. . Iker Cuevas MD - 12/10/2021 12:30 PM EDT Images from the original note were not included. Inpatient Cardiology Progress Note Patient Name: Don Fatima Service: TOOL STORAGE ATTENDANT / PA Responsible Attending: Iker Cuevas MD [...] TROPONINT 1.13* 0.92* 0.89* Pertinent Radiographic/Diagnostic Results: R/[facility] 12/10/21 Hemodynamics: Right Heart Pressures Resting: [...] Discussed with MD Migdalia Peter PA-C Pager #[phone] 12/10/2021 Cardiology Attending Note I have seen [...] updated and given pictures. Iker Cuevas MD [facility] Total time spent on review of records prior to visit, face to face time with patient during visit, documentation, and coordination of care with other clinicians: 35 minutes. Iker Cuevas MD - 12/09/2021 7:28 AM EDT Images from the original note were not included. Inpatient Cardiology Progress Note Patient Name: Don Fatima Service: TOOL STORAGE ATTENDANT / PA Responsible Attending: Iker Cuevas MD [...] Discussed with MD Migdalia Peter PA-C Pager #[phone] 12/09/2021 Cardiology Attending Note I have seen [...] < 70 -CPAP tonight Iker Taverass MD [facility] Total time spent on review of records [...] [facility] MA[facility] OR ??? PRO AMPUTATION FOOT, TRANSMETATARSAL Right 08/09/2017 AMPUTATION, TRANSMETATARSAL (WRVU 12.71) performed by Yonathan Smith MD at [facility] MAIN [...] [facility] ENDOSCOPY ??? PRO DRESSING CHANGE UNDER ANESTHESIA Right 08/11/2017 (MSURG) DRESSING CHANGE (FOR OTHER THAN IVAN) UNDER ANES. (WRVU 0.86) performed by Lamar Smith MD at [facility] MAIN OR ??? PRO ENDOSCOPY W/VIDEO-ASST VEIN HARVEST, CABG Right 07/07/2017 ENDOSCOPIC HARVEST VEIN(S) FOR CABG (WRVU 0.31) performed by Yuan Retana MD at [facility] MAIN OR ??? PRO THYROIDECTOMY 03/28/2013 THYROIDECTOMY, TOTAL OR COMPLETE performed by Manny Mcknight MD at [facility] MAIN OR Significant Family History: [...] Monitor for ADRs. Trend troponins. Admission EKG. [facility] 12/09; consented. TTE. Telemetry monitoring, daily [...] code #Diet-carb control; n.p.o. after midnight for [facility] #DVT prophy- heparin infusion #GI prophy- PPI Discussed with MD Morgan Peter PA-C APP2 pager [phone] 12/08/2021 Cardiology Attending Note I have seen [...] is type 1 due to graft or [place] coronary stenosis vs acute injury from CHF. 3. PAF: currrently in NSR. Have replaced warfarin with heparin 4. PAD: stable 5. DM: stable 6. CKD: will monitor and minimize contrast. Pt very appreciative of Dr. Yuan Retana's care in 2018. Will let him know patient is here. Iker Cuevas MD [facility] documented in this encounter Miscellaneous Notes Care [...] Type: *No Product type* / Secondary Insurance: [employer] [place] Prescription Coverage: Yes This plan was [...] cath without complications. Migdalia Parker PA-C Pager #[phone] 12/10/2021 Initial Assessments - Nick Georges RN [...] COVID test: Lab Results Component Value Date [id number] Not Detected 12/08/2021 Past medical History: Past [...] spouse would be surrogate decision maker per [place] surrogate decision making law. (Only good for 180 days) Any patient receiving care at [facility] must abide by [place] law. The hierarchy for surrogate decision making [...] - standard, cane - straight Home Address: [address] [place] [address] [place] [address] Social & Family Supports: All names listed below confirmed with patient as current and correct Extended Emergency Contact Information Primary Emergency Contact: Kisha Fatima Address: [address] [place] [address] [place] [address] [facility] Mobile Relation: Spouse Secondary Emergency Contact: Elba Swenson Address: [place], [place] [id number] [place] [address] Mobile Relation: Child Current Care Provided by: [...] Secondary Insurance: Prescription Coverage: Yes Preferred Pharmacy: [facility] Delivery [facility] [address] [address] - [place], [place] - [address] [address] [place] Status: Patient is a : unable to assess Primary Care Provider: Lovely Vicente MD [phone] Patient/Caregiver Goals of Treatment: Get out of here Potential Needs for Transition of Care: none Agency Referrals: none patient has used [facility] in the past Transportation: no concerns Transportation Anticipated: family or friend will provide Concerns to be Addressed: patient refuses services, discharge planning Assessment: Patient is admitted to [facility] Service pager [phone] for 76 y.o.??male??with h/o??CAD s/p 3vCABG (THOMPSON-LAD, [...] status on current unit. Nick Georges RN theater projectionist, Office of Care Management Pager: [phone] Brief Op Note - Vitaliy Nobles MD - 12/10/2021 8:31 AM EDT Images from the original note were not included. [facility] [place] [address] [place] [address] CORONARY ANGIOGRAM AND PERCUTANEOUS CORONARY INTERVENTION REPORT Patient: Don Fatima : 1945 MR number: [id number] Date of Service: 12/10/2021 Retail Bakery Manager: Vitaliy Nobles MD Fellow: [place] [...] andis managed by his PCP. Lives in [place], [place] with his . States that he [...] your patient Desirae Jett APRN Endocrinology Pager [phone] 70 minutes of this 80 minute visit [...] for further details. STEPHANIE Rebolledo 12/08/2021 Pager [phone] documented in this encounter Plan of Treatment Upcoming Encounters Date Type Specialty Care Team Description 05/28/2022 Appointment Cardiology Zulma Dolan MD [facility] [place], [place] [address] (Wo lissa) 05/28/2022 Laboratory Appointment Lab 05/28/2022 Office Visit Cardiology Zulma Dolan [place] [address] Liz Poole [place] [facility] [place] [address] 06/10/2022 Office Visit Dermatology Laura Scherer MD [facility]JA [facility] [place], [place] [address] (Wo rk) Scheduled Referrals Name [...] 199 [facility] mg/dL [facility] LABORATORY [...] [place] [address] (ABNORMAL) Differential, Automated (12/12/2021 4:51 AM EDT) athologist Signature Neutrophils % 75.4 % [facility] LABORATORY Neutr Abs (ANC) 5.95 1.70 - [facility] 6.10 [facility] x10(3)/[facility] LABORATORY Lymphocytes % 12.2 % [facility] LABORATORY Lymphocytes Abs 1.0 0.9 - 3.2 [facility] x10(3)/[facility] LABORATORY Monocytes % 9.5 % [facility] LABORATORY Monocyte Abs 0.8 0.3 - 0.9 [facility] x10(3)/[facility] LABORATORY Eosinophils % 1.8 % [facility] LABORATORY Eosinophils Abs 0.1 0.0 - 0.4 [facility] x10(3)/[facility] LABORATORY Basophils % 0.5 % [facility] LABORATORY Basophils Abs 0.0 0.0 - 0.1 [facility] x10(3)/[facility] LABORATORY Immature Gran % [...] Address City/State/ZIP Code Phon e Number [address] (ABNORMAL) Hemogram (12/12/2021 4:51 AM EDT) Analysis Performed At Patho logist Time Signature WBC 7.9 4.0 - 9.5 [facility] x[facility](3[facility] LABORATORY RBC 4.19 (L) 4.58 - [place] 5.54 [facility] x10(6)/[facility] LABORATORY Hemoglobin 12.1 (L) 13.7 - [place] 16.5 g/dL [facility] LABORATORY Hematocrit 36.7 (L) 40.5 - [facility] 48.5 % [facility] LABORATORY MCV 87.6 82.9 - [facility]1 [facility] LABORATORY MCH 28.9 27.5 - [place] 32.1 pg [facility] LABORATORY MCHC 33.0 32.0 - [place] 35.7 g/dL [facility] LABORATORY Platelets 231 145 - 357 [facility] x10(3)/[facility] LABORATORY RDWSD 47.2 (H) 36.0 - [facility] R[facility]AN 45.0 [facility] LABORATORY RDWCV 14.6 (H) 11.4 - [facility] 13.8 % [facility] LABORATORY MPV 9.5 7.6 - 12.9 [facility] LABORATORY nRBC % Auto 0.0 % [facility] LABORATORY nRBC Abs Auto 0.000 0.000 - [place] 0.000 [facility] x10(3)/[facility] LABORATORY Specimen Anatomical Collection Method Collection Time Receive d Time (Source) Location / / Volume Laterality Blood 12/12/2021 4:51 AM 2 5:06 EDT AM EDT Resulting Agency Comment Spec In Lab Bijan Sun MD HEMATOLOGY ORDERABLES Performing Organization Address City/[facility]/[place] [address] (ABNORMAL) Prothrombin Time (12/12/2021 4:51 AM EDT) athologist Signature PT 14.9 (H) 9.4 - 12.5 [facility] LABORATORY INR 1.3 [facility] [...] Address City/State/[place] [address] (ABNORMAL) BMP w/fasting Glucose (12/12/2021 4:51 AM EDT) athologist Signature Glucose 152 (H) 65 - 99 [facility] Fasting mg/dL [facility] [...] Mellitus, Position Statement from the [place] Diabetes Association. ??Diabete s Care, Volume 33, [...] [place] [address] Magnesium (12/12/2021 4:51 AM EDT) athologist Signature Magnesium 1.02 0.69 - 1.07 [place] mmol/L [facility] LABORATORY Specimen Anatomical Collection Method Collection Time Receive d Time (Source) Location / / Volume Laterality Blood 12/12/2021 4:51 AM 2 5:06 EDT AM EDT Resulting Agency Comment Spec In Lab Iker Cuevas MD CHEMISTRY ORDERABLES Performing Organization Address City/[facility]/ZIP Code Phon e Number [address] POCT Glucose (12/12/2021 3:43 AM EDT) athologist Signature POC Glucose 138 65 - 199 [place] mg/dL [facility] LABORATORY [...] Address City/State/ZIP Code Phon e Number [address] POCT Glucose (12/11/2021 11:44 PM EDT) athologist Signature POC Glucose 124 65 - 199 [place] mg/dL [facility] LABORATORY [...] Address City/State/ZIP Code Phon e Number [address] (ABNORMAL) POCT Glucose (12/11/2021 8:12 PM EDT) athologist Signature POC Glucose 200 (H) 65 - 199 [place] mg/dL [facility] LABORATORY [...] Address City/State/[place] [address] (ABNORMAL) POCT Glucose (12/11/2021 6:50 PM EDT) P athologist Signature POC Glucose 245 (H) 65 - 199 [place] mg/dL [facility] LABORATORY [...] Address City/State/[place] [address] (ABNORMAL) POCT Glucose (12/11/2021 4:00 PM EDT) P athologist Signature POC Glucose 383 (H) 65 - 199 [facility] mg/dL [facility] LABORATORY [...] Address City/State/[place] [address] (ABNORMAL) POCT Glucose (12/11/2021 12:01 PM EDT) P athologist Signature POC Glucose 342 (H) 65 - 199 [place] mg/dL [facility] LABORATORY [...] Address City/State/ZIP Code [place] [address] COVID-19 PCR (12/11/2021 10:13 AM EDT) [facility] Method Time Signature SARS-CoV-2 Not Detected Not Detected [place] RNA [facility] LABORATORY Comment: This result should [...] diagnosis of COVID-19 is performed using the [employer] RONNA S-CoV-2 Assay as authorized by the FDA Emergency Use Authorization (EUA). This EUA assay is intended for In-vitro Diagnostic (IVD) use with respiratory sp ecimens such as nasopharyngeal swabs collected from individuals during the [place] phase of infection. This assay is performed based on the instructions for use provided by [employer] and additional guidance provided by [...] is infected. As required or requested by via [facility], positive specimens may be sent for [...] clinical management guidance information are available at [facility] CDC Coronavirus Disease 2019 (COVID-19) webpage under Information fo r Healthcare Professionals (https://www.cdc.gov/coronavirus/2019-nc ov/hcp/index.html) Additional information about this and ot her EUA tests can be found in provider and patient fact sheets at the following FDA website: https://www.fda.gov/medical-devices/sdscwsftiwi-eazddoi-9551-vmnnk-92-laiofrezx- yke-tcajdutghpyyqp-huxokle-devices/duabg-gexuchfcncc-qqxs SARS-Cov-2 RNA Source TOOL STORAGE ATTENDANT Swab [facility] LABORATORY Specimen (Source) Anatomical Collection Method Collection Time Re ceived Time Location / / Volume Laterality Nasopharyngeal Swab 12/11/2021 10:13 11/23 AM EDT 11:16 AM EDT Comment: Symptoms->Surveillance Resulting Agency Comment Spec In Lab Iker Cuevas MD MICROBIOLOGY - GENERAL ORDER [place] Performing Organization Address City/State/ZIP [place] [address] POCT Glucose (12/11/2021 7:34 AM EDT) P athologist Signature POC Glucose 198 65 - 199 [facility] mg/dL [facility] LABORATORY [...] Address City/State/[place] [address] (ABNORMAL) POCT Glucose (12/11/2021 5:07 AM EDT) P athologist Signature POC Glucose 208 (H) 65 - 199 [facility] mg/dL [facility] LABORATORY [...] Address City/State/[place] [address] (ABNORMAL) Differential, Automated (12/11/2021 4:28 AM EDT) Patholo gist Method Time Signature Neutrophils % 79.6 % [facility] LABORATORY Neutr Abs (ANC) 7.01 (H) 1.70 - [facility] 6.10 [facility] x10(3)/[facility] L LABORATORY Lymphocytes % 9.1 % [facility] LABORATORY Lymphocytes Abs 0.8 (L) 0.9 - 3.2 [facility] x10(3)/[facility] LABORATORY Monocytes % 9.2 % [facility] LABORATORY Monocyte Abs 0.8 0.3 - 0.9 [facility] x10(3)/[facility] LABORATORY Eosinophils % 1.3 % [facility] LABORATORY Eosinophils Abs 0.1 0.0 - 0.4 [facility] x10(3)/[facility] LABORATORY Basophils % 0.5 % [facility] LABORATORY Basophils Abs 0.0 0.0 - 0.1 [facility] x10(3)/[facility] LABORATORY Immature Gran [...] 0.00 - 0.04 x10(3)/[facility] LABORATORY Specimen Anatomical Collection Method Collection Time Receive d Time (Source) Location / / Volume Laterality Blood 12/11/2021 4:28 AM 4:37 EDT AM EDT Resulting Agency Comment Spec In Lab Bijan Sun MD HEMATOLOGY ORDERABLES Performing Organization Address City/State/ZIP Code Phon e Number [place] [id number] (ABNORMAL) Hemogram (12/11/2021 4:28 AM EDT) Analysis Performed At Patho logist Time Signature WBC 8.8 4.0 - 9.5 [facility] x10(3)/[facility] LABORATORY RBC 4.15 (L) 4.58 - [place] 5.54 [facility] x10(6)/[facility] LABORATORY Hemoglobin 11.9 (L) 13.7 - [facility] 16.[facility] g/dL [facility] LABORATORY Hematocrit 36.9 (L) 40.5 - [facility] R[facility] 48.5 % [facility] LABORATORY MCV 88.9 82.9 - [facility] 93.1 [facility] LABORATORY MCH 28.7 27.5 - [place] 32.1 pg [facility] LABORATORY MCHC 32.2 32.0 - [facility] 35.7 g/dL [facility] LABORATORY Platelets 211 145 - 357 [facility] x10(3)/[facility] LABORATORY RDWSD 48.3 (H) 36.0 - [facility] 45.0 [facility] LABORATORY RDWCV 14.8 (H) 11.4 - [facility] 13.8 % [facility] LABORATORY MPV 9.6 7.6 - 12.9 [facility] LABORATORY nRBC % Auto 0.0 % [facility] LABORATORY nRBC Abs Auto 0.000 0.000 - [facility] 0.000 [facility] x10(3)/[facility] LABORATORY Specimen Anatomical Collection Method Collection Time Receive d Time (Source) Location / / Volume Laterality Blood 12/11/2021 4:28 AM 2 4:37 EDT AM EDT Resulting Agency Comment Spec In Lab Bijan Sun MD HEMATOLOGY ORDERABLES Performing Organization Address City/[facility]/ZIP [facility] [place] [address] (ABNORMAL) Prothrombin Time (12/11/2021 4:28 AM EDT) P athologist Signature PT 17.7 (H) 9.4 - 12.5 [facility] LABORATORY INR 1.6 [facility] [...] City/[facility]/ZIP [place] [address] (ABNORMAL) BMP w/fasting Glucose (12/11/2021 4:28 AM EDT) P athologist Signature Glucose 207 (H) 65 - 99 [facility] Fasting mg/dL [facility] [...] Mellitus, Position Statement from the [place] Diabetes Association. ??Diabete s Care, Volume 33, [...] City/[facility]/[place] [address] Magnesium (12/11/2021 4:28 AM EDT) athologist Signature Magnesium 1.04 0.69 - 1.07 [facility] mmol/L [facility] LABORATORY Specimen Anatomical Collection Method Collection Time Receive d Time (Source) Location / / Volume Laterality Blood 12/11/2021 4:28 AM 2 4:37 EDT AM EDT Resulting Agency Comment Spec In Lab Iker Cuevas MD CHEMISTRY ORDERABLES Performing Organization Address City/[facility]/ZIP Code Phon e Number [address] POCT Glucose (12/11/2021 3:58 AM EDT) athologist Signature POC Glucose 189 65 - 199 [place] mg/dL [facility] LABORATORY [...] City/[facility]/[place] [address] (ABNORMAL) POCT Glucose (12/10/2021 11:45 PM EDT) athologist Signature POC Glucose 205 (H) 65 - 199 [place] mg/dL [facility] LABORATORY [...] City/[facility]/[place] [address] (ABNORMAL) POCT Glucose (12/10/2021 7:54 PM EDT) athologist Signature POC Glucose 225 (H) 65 - 199 [facility] mg/dL [facility] CENTER LABORATORY [...] City/[facility]/[place] [address] Potassium (12/10/2021 7:46 PM EDT) athologist [facility] Potassium 4.2 3.5 - 5.0 [facility] mmol/L [facility] LABORATORY [...] ORDERABLES Performing Organization Address City/[facility]/ZIP [facility] [place] [address] (ABNORMAL) Basic Metabolic Panel (non-fasting) (12/10/2021 6:12 PM EDT) athologist Signature Glucose Lvl 246 (H) 65 - 199 [facility] mg/dL [facility] LABORATORY [...] Address City/State/ZIP Code Phon e Number [address] POCT Glucose (12/10/2021 4:59 PM EDT) P athologist Signature POC Glucose 158 65 - 199 [facility]/dL [facility] LABORATORY [...] Address City/State/[place] [address] (ABNORMAL) POCT Glucose (12/10/2021 12:43 PM EDT) P athologist Signature POC Glucose 241 (H) 65 - 199 [facility] mg/dL [facility] LABORATORY [...] Address City/State/[place] [address] EKG 12 Lead (12/10/2021 11:17 AM EDT) Component Value Ref Range Test Analysis Performed Pathologis t Method Time At Signature Ventricular rate 62 BPM MUSE SYSTEM Atrial Rate 62 BPM MUSE SYSTEM P-R Interval 142 ms MUSE SYSTEM QRS Duration 100 ms MUSE SYSTEM Q-T Interval 434 ms MUSE SYSTEM QTC Calculated 440 ms MUSE SYSTEM (Bezet) Calculated P Napoleon 34 degrees MUSE SYSTEM Calculated R Napoleon -39 degrees MUSE SYSTEM Calculated T Napoleon 92 degrees MUSE SYSTEM INTERPRETATION Normal sinus rhythm MUSE SYSTEM Left axis deviation Minimal voltage criteria for LVH, may be normal variant ( Randolph product ) Cannot rule out Inferior infarct [...] Laterality Volume Narrative 12/10/2021 12:04 PM EDT ?[facility] ? Cardiac Cathete rization/Intervention Report ? Patient Name: Don FatimaMadiha ? Procedure Date: 12/10/2021 ? A #: [id number] ? Primary Physician: Nobles, Vitaliy P ? Case #: [id number] ? File Name: [id number] ? Catheterization Order Number: [id number] ? [facility] ? Final Report [place], [place] ? Patient Name: ? Don E. Stewa rt ? ID#: ?[id number] ? : ?1945 ? Procedure Date: ? [...] ?3.75 guiding catheter and a 3.5 Fr [facility] 20 Mhz using Manual ?pullback. ??Imaging was [...] ?3.75 guiding catheter and a 3.5 Fr [facility] 20 Mhz using Manual ?pullback. ??Imaging was [...] may require ?modification of this regimen. C [facility] Interventional Cardiology for ?questions. ?The 1 year [...] Vitaliy Nobles MD - 01/14/2022 [facility] Cardiac Catheterization/Intervention Re port Patient Name: Don Fatima Procedure Date: 12/10/2021 A #: [id number] Primary Physician: Vitaliy Nobles Case #: [id number] File Name: [id number] Catheterization Order Number: [id number] [facility] Obstetric Assistant [facility] Final Report [place], [place] Patient Name: Don Fatima ID#: [...] and a 3.5 Fr [facility] 20 Mhz using Manual pullback. Imaging was [...] and a 3.5 Fr [facility] 20 Mhz using Manual pullback. Imaging was [...] Glucose 262 (H) 65 - 199 [facility] mg/dL [facility] LABORATORY [...] Address City/State/[place] [address] (ABNORMAL) POCT Glucose (12/10/2021 9:48 AM EDT) athologist Signature POC Glucose 279 (H) 65 - 199 [place] [facility] mg/dL [facility] LABORATORY [...] City/[facility]/[place] [address] (ABNORMAL) POCT Glucose (12/10/2021 9:07 AM EDT) P athologist Signature POC Glucose 268 (H) 65 - 199 [facility] mg/dL [facility] LABORATORY [...] Address City/State/[place] [address] (ABNORMAL) Point of Care Blood Gas Historical (12/10/2021 9:04 AM EDT) [facility] Method Time Signature POC pH 7.40 7.35 - [place] [facility] 7.45 [facility] LABORATORY POC PCO2 40 35 - 45 [facility] LABORATORY POC PO2 63 (L) 85 - 104 [facility] LABORATORY POC Base Excess 0.0 -3.0 - 3.0 [facility] mmol/L [facility] LABORATORY POC HCO3 24.8 20.0 - [facility] 26.0 [facility] P[facility] Sodium 143 135 - 145 [facility] mmol/L [facility] LABORATORY POC Potassium 3.7 3.5 - 5.0 [facility] mmol/L [facility] LABORATORY POC Ionized Ca 1.07 (L) 1.15 - [facility] 1.33 [facility] POC Hematocrit 30.0 (L) 40.0 - [facility] 51.0 % [facility] POC Calc Hgb 10.2 (L) 13.7 - [facility] 17.5 g/dL [facility] [...] Address City/State/[place] [address] (ABNORMAL) POCT Glucose (12/10/2021 7:19 AM EDT) P athologist Signature POC Glucose 274 (H) 65 - 199 [facility] mg/dL [facility] LABORATORY [...] Address City/State/[place] [address] Heparin (unfractionated) Level (12/10/2021 4:25 AM EDT) P athologist Signature Heparin UFH 0.69 IU/mL [facility] [...] City/State/ZIP Code Phon e Number [place] [id number] [address]OS[address]ORY Drive (ABNORMAL) Differential, Automated (12/10/2021 4:25 AM EDT) Patholo gist Method Time Signature Neutrophils % 79.8 % [facility] LABORATORY Neutr Abs (ANC) 7.47 (H) 1.70 - [facility] 6.10 [facility] x10(3)/[facility] L LABORATORY Lymphocytes % 10.6 % [facility] LABORATORY Lymphocytes Abs 1.0 0.9 - 3.2 [facility] x10(3)/[facility] LABORATORY Monocytes % 8.4 % [facility] LABORATORY Monocyte Abs 0.8 0.3 - 0.9 [facility] x10(3)/[facility] LABORATORY Eosinophils % 0.6 % [facility] LABORATORY Eosinophils Abs 0.1 0.0 - 0.4 [facility] x10(3)/[facility] LABORATORY Basophils % 0.2 % [facility] LABORATORY Basophils Abs 0.0 0.0 - 0.1 [facility] x10(3)/[facility] LABORATORY Immature Gran [...] 0.00 - 0.04 x10(3)/[facility] LABORATORY Specimen Anatomical Collection Method Collection Time Receive d Time (Source) Location / / Volume Laterality Blood 12/10/2021 4:25 AM 4:34 EDT AM EDT Resulting Agency Comment Spec In Lab Morgan BROWN HEMATOLOGY ORDERABLES Performing Organization Address City/State/ZIP [place] [address] (ABNORMAL) Hemogram (12/10/2021 4:25 AM EDT) Analysis Performed At Patho logist Time Signature WBC 9.4 4.0 - 9.5 [facility] x10(3)/[facility] LABORATORY RBC 3.81 (L) 4.58 - [facility] 5.54 [facility] x10(6)/[facility] LABORATORY Hemoglobin 11.1 (L) 13.7 - [facility] 16.5 g/dL [facility] LABORATORY Hematocrit 34.0 (L) 40.5 - [facility] 48.5 % [facility] LABORATORY MCV 89.2 82.9 - [facility] 93.1 [facility] LABORATORY MCH 29.1 27.5 - [facility] 32.1 pg [facility] LABORATORY MCHC 32.6 32.0 - [facility] 35.7 g/dL [facility] LABORATORY Platelets 183 145 - 357 [facility] x10(3)/[facility] LABORATORY RDWSD 49.9 (H) 36.0 - [facility] 45.0 [facility] LABORATORY RDWCV 15.2 (H) 11.4 - [facility] 13.8 % [facility] LABORATORY MPV 9.8 7.6 - 12.9 [facility] LABORATORY nRBC % Auto 0.0 % [facility] LABORATORY nRBC Abs Auto 0.000 0.000 - [place] 0.000 [facility] x10(3)/[facility] LABORATORY Specimen Anatomical Collection Method Collection Time Receive d Time (Source) Location / / Volume Laterality Blood 12/10/2021 4:25 AM 2 4:34 EDT AM EDT Resulting Agency Comment Spec In Lab Morgan BROWN HEMATOLOGY ORDERABLES Performing Organization Address City/[facility]/ZIP Code Phon e Number [address] (ABNORMAL) Prothrombin Time (12/10/2021 4:25 AM EDT) P athologist Signature PT 20.0 (H) 9.4 - 12.5 [facility] LABORATORY INR 1.7 [facility] [...] City/[facility]/[place] [address] (ABNORMAL) BMP w/fasting Glucose (12/10/2021 4:25 AM EDT) P athologist Signature Glucose 210 (H) 65 - 99 [facility] Fasting mg/dL [facility] [...] Mellitus, Position Statement from the [place] [employer] Association. ??Diabete s Care, Volume 33, [...] Address City/State/[place] [address] Magnesium (12/10/2021 4:25 AM EDT) athologist Signature Magnesium 0.95 0.69 - 1.07 [place] mmol/L [facility] LABORATORY Specimen Anatomical Collection Method Collection Time Receive d Time (Source) Location / / Volume Laterality Blood 12/10/2021 4:25 AM 2 4:34 EDT AM EDT Resulting Agency Comment Spec In Lab Iker Cuevas MD CHEMISTRY ORDERABLES Performing Organization Address City/[facility]/[place] [address] POCT Glucose (12/10/2021 1:58 AM EDT) athologist Signature POC Glucose 164 65 - 199 [place] mg/dL [facility] LABORATORY [...] City/[facility]/ZIP Code Phon e Number [address] (ABNORMAL) POCT Glucose (12/09/2021 9:02 PM EDT) athologist Signature POC Glucose 313 (H) 65 - 199 [place] mg/dL [facility] LABORATORY [...] City/[facility]/[place] [address] Heparin (unfractionated) Level (12/09/2021 [...] [place] [address] (ABNORMAL) Basic Metabolic Panel (non-fasting) (12/09/2021 7:30 PM EDT) athologist Signature Glucose Lvl 372 (H) 65 - 199 [facility] mg/dL [facility] LABORATORY [...] [place] [address] (ABNORMAL) POCT Glucose (12/09/2021 6:34 PM EDT) athologist Signature POC Glucose 408 (H) 65 - 199 [facility] mg/dL [facility] LABORATORY [...] Address City/State/[place] [address] (ABNORMAL) POCT Glucose (12/09/2021 6:32 PM EDT) athologist Signature POC Glucose 356 (H) 65 - 199 [facility] mg/dL [facility] LABORATORY [...] City/[facility]/[place] [address] (ABNORMAL) POCT Glucose (12/09/2021 4:19 PM EDT) athologist Signature POC Glucose 347 (H) 65 - 199 [facility] mg/dL [facility] LABORATORY [...] Address City/State/[place] [address] Heparin (unfractionated) Level (12/09/2021 [...] Address City/State/[place] [address] (ABNORMAL) POCT Glucose (12/09/2021 12:02 PM EDT) athologist Signature POC Glucose 235 (H) 65 - 199 [facility] mg/dL [facility] LABORATORY [...] Address City/State/[place] [address] (ABNORMAL) POCT Glucose (12/09/2021 9:44 AM EDT) athologist Signature POC Glucose 214 (H) 65 - 199 [place] [facility] mg/dL [facility] LABORATORY [...] City/[facility]/ZIP [place] [address] EKG 12 Lead (12/09/2021 7:57 AM EDT) Component Value Ref Range Test Analysis Performed Pathologis t Method Time At Signature Ventricular rate 101 BPM MUSE SYSTEM Atrial Rate 101 BPM MUSE SYSTEM P-R Interval 150 ms MUSE SYSTEM QRS Duration 112 ms MUSE SYSTEM Q-T Interval 364 ms MUSE SYSTEM QTC Calculated 471 ms MUSE SYSTEM (Bezet) Calculated P Napoleon 59 degrees MUSE SYSTEM Calculated R Napoleon -42 degrees MUSE SYSTEM Calculated T Napoleon 102 degrees MUSE SYSTEM INTERPRETATION Sinus tachycardia Occasional Premature ventricular com plexes MUSE SYSTEM Left axis deviation 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) Abnormal ECG When compared with ECG of 08-DEC-2021 16:40, Premature ventricular complexes are now Present Confirmed by MD Fernandez Danette ([id number]) on 12/10/2021 4:55:06 PM Specimen Anatomical Collection Method Collection Time Receive d Time (Source) Location / / Volume Laterality 12/09/2021 7:57 AM 2 4:55 EDT PM EDT Iker Cuevas MD ECG ORDERABLES Performing Organization Address City/State/ZIP Code Phon e Number MUSE SYSTEM (ABNORMAL) POCT Glucose (12/09/2021 7:28 AM EDT) P athologist Signature POC Glucose 263 (H) 65 - 199 [facility] mg/dL [facility] LABORATORY [...] City/State/ZIP Code Phon e Number [place] [id number] HOSPITAL LABORATORY Drive (ABNORMAL) Hemoglobin A1c (12/09/2021 [...] Mellitus, Diabetes Care 2013; 36: Suppl. 1, Z97-44 Est Avg Gluc See note mg/dL [place] [...] into estimated average glucose values. ??Diabetes Care 2008:31(8):0286-0763. Specimen Anatomical Collection Method Collection Time Receive d Time (Source) Location / / Volume Laterality Blood Venous Draw / 12/09/2021 6:18 AM 12/10/19 22 Unknown EDT 12:24 PM EDT Resulting Agency Comment Spec In Lab Migdalia BROWN CHEMISTRY ORDERABLES Performing Organization Address [facility] [place] [address] (ABNORMAL) Prothrombin Time (12/09/2021 6:18 AM EDT) athologist Signature PT 26.6 (H) 9.4 - 12.5 [facility] LABORATORY INR 2.3 [facility] [...] Migdalia BROWN HEMATOLOGY ORDERABLES Performing Organization Address [facility] [place] [address] Heparin (unfractionated) Level (12/09/2021 [...] [place] [address] (ABNORMAL) Differential, Automated (12/09/2021 6:18 AM EDT) [facility] Method Time Signature Neutrophils % 91.5 % [facility] LABORATORY Neutr Abs (ANC) 15.78 (H) 1.70 - [facility] 6.10 [facility] x10(3)/[facility] LABORATORY Lymphocytes % 2.9 % [facility] LABORATORY Lymphocytes Abs 0.5 (L) 0.9 - 3.2 [facility] x10(3)/[facility] LABORATORY Monocytes % 4.9 % [facility] LABORATORY Monocyte Abs 0.8 0.3 - 0.9 [facility] x10(3)/[facility] LABORATORY Eosinophils % 0.0 % [facility] LABORATORY Eosinophils Abs 0.0 0.0 - 0.4 [facility] x10(3)/[facility] LABORATORY Basophils % 0.2 % [facility] LABORATORY Basophils Abs 0.0 0.0 - 0.1 [facility] x10(3)/[facility] LABORATORY Immature Gran [...] [place] [address] (ABNORMAL) Hemogram (12/09/2021 6:18 AM EDT) Analysis Performed At Patho logist Time Signature WBC 17.2 (H) 4.0 - 9.5 [facility] x10(3)/[facility] LABORATORY RBC 4.32 (L) 4.58 - [facility] 5.54 [facility] x10(6)/[facility] LABORATORY Hemoglobin 12.6 (L) 13.7 - [facility] 16.5 g/dL [facility] LABORATORY Hematocrit 38.9 (L) 40.5 - [facility] 48.5 % [facility] LABORATORY MCV 90.0 82.9 - [facility] 93.1 [facility] LABORATORY MCH 29.2 27.5 - [facility] 32.1 pg [facility] LABORATORY MCHC 32.4 32.0 - [facility] 35.7 g/dL [facility] LABORATORY Platelets 193 145 - 357 [facility] x10(3)/[facility] LABORATORY RDWSD 50.4 (H) 36.0 - [facility] 45.0 [facility] LABORATORY RDWCV 15.2 (H) 11.4 - [facility] 13.8 % [facility] LABORATORY MPV 9.5 7.6 - 12.9 [facility] LABORATORY nRBC % Auto 0.0 % [facility] LABORATORY nRBC Abs Auto 0.000 0.000 - [facility] 0.000 [facility] x10(3)/[facility] LABORATORY Specimen Anatomical Collection Method Collection Time Receive d Time (Source) Location / / Volume Laterality Blood 12/09/2021 6:18 AM 6:33 EDT AM EDT Resulting Agency Comment Spec In Lab Morgan BROWN HEMATOLOGY ORDERABLES Performing Organization Address City/State/ZIP [place] [address] Lipid Panel (Reflex Direct LDL) (12/09/2021 6:18 AM EDT) athologist Signature Chol, Total 105 mg/dL [facility] LABORATORY Comment: Lower Risk: <200 mg/dL Average Risk: 200-239 mg/dL Higher Risk: >vl=714 mg/dL Triglycerides 133 mg/dL [facility] LABORATORY Comment: Average Risk/Lower Risk: <150 mg/dL Borderline High Risk: 150-199 mg/dL High Risk: 200-499 mg/dL Very High Risk: >hf=967 mg/dL HDL 42 mg/dL [facility] LABORATORY Comment: Males: ?? Higher Risk: <40 mg/dL Females: ?? Higher Risk: <50 mg/dL LDL Cholesterol 36 mg/dL [facility] LABORATORY Comment: Lowest Risk: <100 mg/dL Lower Risk: 100-129 mg/dL Borderline High Risk: 130-159 mg/dL High Risk: 160-189 mg/dL Very High Risk: >bm=609 mg/dL Chol/HDL Ratio 2.5 ratio [facility] LABORATORY Lipid Interpretation See Note [facility] LABORATORY Comment: Lipid management should be guided by a p atient? s ASCVD risk, goals and preferences. ACC/AHA Guidelines recommend high intens ity statin if clinical ASCVD or LDL greater than or equal to 190 mg/dL. http://tinyurl.com/KDQ-RHG-Jkaerxjji Adults aged 40-75 with LDL 70-189 mg/dL should have their 10 year ASCVD risk estimated with the ACC/AHA ASCVD risk es timator http://tools.acc.org/HPIOL-Nluq-Onatjurw r/ Statin should be discussed if risk [...] City/[facility]/ZIP Code Phon e Number [address] TSH (12/09/2021 6:18 AM EDT) P athologist Signature TSH 1.60 0.27 - 4.20 [facility] mcIU/mL [facility] LABORATORY [...] City/[facility]/[place] [address] Hepatic Function Panel (12/09/2021 6:18 AM EDT) P athologist Signature Total Protein 7.3 6.1 - 8.0 [place] g/dL [facility] LABORATORY Albumin 4.2 3.2 - 5.2 [place] g/dL [facility] LABORATORY AST 25 0 - 39 [place] unit/L [facility] LABORATORY ALT 15 0 - 55 [place] [facility] unit/L [facility] LABORATORY Alk Phos 75 40 - 130 [place] [facility] unit/L [facility] LABORATORY Total 1.1 0.2 - 1.3 [facility] Bilirubin mg/dL [facility] LABORATORY Bili, Direct 0.2 0.0 - 0.3 [facility] mg/dL [facility] LABORATORY Specimen Anatomical Collection Method Collection Time Receive d Time (Source) Location / / Volume Laterality Blood 12/09/2021 6:18 AM 6:33 EDT AM EDT Resulting Agency Comment Spec In Lab Iker Cuevas MD CHEMISTRY ORDERABLES Performing Organization Address City/State/ZIP [place] [address] (ABNORMAL) BMP w/fasting Glucose (12/09/2021 6:18 AM EDT) athologist Signature Glucose 235 (H) 65 - 99 [facility] Fasting mg/dL [facility] [...] Mellitus, Position Statement from the [place] Diabetes Association. ??Diabete s Care, Volume 33, [...] City/[facility]/ZIP Code Phon e Number [address] Magnesium (12/09/2021 6:18 AM EDT) P athologist Signature Magnesium 0.81 0.69 - 1.07 [facility] mmol/L [facility] LABORATORY Specimen Anatomical Collection Method Collection Time Receive d Time (Source) Location / / Volume Laterality Blood 12/09/2021 6:18 AM 2 6:33 EDT AM EDT Resulting Agency Comment Spec In Lab Iker Cuevas MD CHEMISTRY ORDERABLES Performing Organization Address City/[facility]/ZIP Code Phon e Number [address] (ABNORMAL) Troponin (12/09/2021 6:18 AM EDT) P athologist Signature Troponin-T 1.13 (H) 0.00 - [place] 0.00 ng/mL [facility] [...] additional sample may be indicated. Reference: [place] Definition of Myocardial Infarction. Journal of the [place] College of Cardiology 2012;60:1581-98 Specimen Anatomical Collection Method Collection Time Receive d Time (Source) Location / / Volume Laterality Blood 12/09/2021 6:18 AM 6:33 EDT AM EDT Resulting Agency Comment Spec In Lab Iker Cuevas MD CHEMISTRY ORDERABLES Performing Organization Address City/State/ZIP Code [place] [address] XR Chest One View [...] have questions please contact the health care team coordinator scheduler that requested your imaging first. ? Narrative [...] have questions please contact the health care team coordinator scheduler that requested your imaging first. Amber Sanches MD IMG DX ORDERABLES (ABNORMAL) BLOOD GAS 2 ARTERIAL (12/09/2021 5:14 AM EDT) Analysis Performed At Patho logist Time Signature pH Art 7.43 7.35 - [facility] 7.45 [facility] LABORATORY pCO2 Art 36 35 - 45 [facility] mmHg [facility] LABORATORY pO2 Art 67 (L) 85 - 104 [facility] LABORATORY HCO3 Art 23.4 20.0 - [facility] 26.0 [facility] mmol/[facility] LABORATORY BE Art -0.9 -3.0 - 3.0 [facility] mmol/L [facility] LABORATORY Hgb Blood Gas 13.2 (L) 13.7 - [facility] [facility] 16.5 g/dL [facility] O2HB Art 91.3 (L) 94.0 - [facility] 97.0 % [facility] [...] CHEMISTRY ORDERABLES Performing Organization Address City/[facility] [place] [address] POCT Glucose (12/09/2021 4:46 AM EDT) P athologist Signature POC Glucose 198 65 - 199 [facility] mg/dL [facility] LABORATORY [...] City/[facility]/[place] [address] (ABNORMAL) POCT Glucose (12/09/2021 3:01 AM EDT) P athologist Signature POC Glucose 225 (H) 65 - 199 [facility] mg/dL [facility] LABORATORY [...] Address City/State/[place] [address] (ABNORMAL) POCT Glucose (12/08/2021 10:55 PM EDT) athologist Signature POC Glucose 327 (H) 65 - 199 [facility] mg/dL [facility] LABORATORY [...] City/[facility]/[place] [address] Heparin (unfractionated) Level (12/08/2021 [...] Address City/State/[place] [address] (ABNORMAL) Troponin (12/08/2021 10:03 PM EDT) athologist Signature Troponin-T 0.92 (H) 0.00 - BARBARA DAVIS 0.00 ng/mL [facility] [...] additional sample may be indicated. Reference: [place] Definition of Myocardial Infarction. Journal of [employer] [place] College [employer] Cardiology 2012;60:1581-98 Specimen Anatomical Collection Method Collection Time Receive d Time (Source) Location / / Volume Laterality Blood 12/08/2021 10:03 12/08/2021 PM EDT 10:31 PM EDT Resulting Agency Comment Spec In Lab Iker Cuevas MD CHEMISTRY ORDERABLES Performing Organization Address City/State/ZIP Code Phon e Number [facility] [place] [address] (ABNORMAL) POCT Glucose (12/08/2021 [...] City/[facility]/ZIP Code Phon e Number [address] (ABNORMAL) POCT Glucose (12/08/2021 7:06 PM EDT) athologist Signature POC Glucose 442 (H) 65 - 199 [facility] mg/dL [facility] LABORATORY [...] City/[facility]/[place] [address] Magnesium (12/08/2021 6:02 PM EDT) athologist Signature Magnesium 0.86 0.69 - 1.07 [facility] mmol/L [facility] LABORATORY Specimen Anatomical Collection Method Collection Time Receive d Time (Source) Location / / Volume Laterality Blood 12/08/2021 6:02 PM 2 6:36 EDT PM EDT Resulting Agency Comment Spec In Lab Iker Cuevas MD CHEMISTRY ORDERABLES Performing Organization Address City/[facility]/[place] [address] (ABNORMAL) Basic Metabolic Panel (non-fasting) (12/08/2021 6:02 PM EDT) athologist Signature Glucose Lvl 392 (H) 65 - 199 [facility] mg/dL [facility] LABORATORY [...] [place] [address] (ABNORMAL) Differential, Automated (12/08/2021 6:02 PM EDT) [facility] gist Method Time Signature Neutrophils % 89.5 % [facility] LABORATORY Neutr Abs (ANC) 13.97 (H) 1.70 - [facility] 6.10 [facility] x10(3)/[facility] L LABORATORY Lymphocytes % 3.7 % [facility] LABORATORY Lymphocytes Abs 0.6 (L) 0.9 - 3.2 [facility] x10(3)/[facility] LABORATORY Monocytes % 6.1 % [facility] LABORATORY Monocyte Abs 1.0 (H) 0.3 - 0.9 [facility] x10(3)/[facility] LABORATORY Eosinophils % 0.0 % [facility] LABORATORY Eosinophils Abs 0.0 0.0 - 0.4 [facility] x10(3)/[facility] LABORATORY Basophils % 0.2 % [facility] LABORATORY Basophils Abs 0.0 0.0 - 0.1 [facility] x10(3)/[facility] LABORATORY Immature Gran [...] Gran Abs 0.08 (H) 0.00 - 0.04 x10(3)/[facility] LABORATORY Specimen Anatomical Collection Method Collection Time Receive d Time (Source) Location / / Volume Laterality Blood 12/08/2021 6:02 PM 6:36 EDT PM EDT Resulting Agency Comment Spec In Lab Morgan BROWN HEMATOLOGY ORDERABLES Performing Organization Address City/State/ZIP [place] [address] (ABNORMAL) Hemogram (12/08/2021 6:02 PM EDT) Analysis Performed At Patho logist Time Signature WBC 15.6 (H) 4.0 - 9.5 [facility] x10(3)/[facility] LABORATORY RBC 4.05 (L) 4.58 - [facility] 5.54 [facility] x10(6)/[facility] LABORATORY Hemoglobin 11.8 (L) 13.7 - [facility] ZHAORYAN 16.5 g/dL [facility] LABORATORY Hematocrit 35.8 (L) 40.5 - [place] [place] 48.5 % [facility] LABORATORY MCV 88.4 82.9 - [place] [place] 93.1 [facility] LABORATORY MCH 29.1 27.5 - [place]BAR[facility] ZHAORYAN 32.1 pg [facility] LABORATORY MCHC 33.0 32.0 - [facility] ZHAORYAN 35.7 g/dL [facility] LABORATORY Platelets 178 145 - 357 [facility] x10(3)/[facility] LABORATORY RDWSD 49.3 (H) 36.0 - [facility] ZHAORYAN 45.0 [facility] LABORATORY RDWCV 15.1 (H) 11.4 - BARBARA RYAN 13.8 % [facility] LABORATORY MPV 10.4 7.6 - 12.9 [facility] fL [facility] LABORATORY nRBC % Auto 0.0 % [facility] LABORATORY nRBC Abs Auto 0.000 0.000 - BARBARA ZHAORYAN 0.000 [facility] x10(3)/[facility] LABORATORY Specimen Anatomical Collection Method Collection Time Receive d Time (Source) Location / / Volume Laterality Blood 12/08/2021 6:02 PM 6:36 EDT PM EDT Resulting Agency Comment Spec In Lab Morgan BROWN HEMATOLOGY ORDERABLES Performing Organization Address City/State/ZIP [place] [address] (ABNORMAL) Troponin (12/08/2021 6:02 PM EDT) P athologist Signature Troponin-T 0.89 (H) 0.00 - [place] 0.00 ng/mL [facility] [...] additional sample may be indicated. Reference: [place] Definition of Myocardial Infarction. Journal of the [place] College of Cardiology 2012;60:1581-98 Specimen Anatomical Collection Method Collection Time Receive d Time (Source) Location / / Volume Laterality Blood 12/08/2021 6:02 PM 6:36 EDT PM EDT Resulting Agency Comment Spec In Lab Iker Cuevas MD CHEMISTRY ORDERABLES Performing Organization Address City/State/ZIP Code Phon e Number [place] [id number] COVID-19 PCR (12/08/2021 5:00 PM EDT) [facility] Method Time Signature SARS-CoV-2 Not Detected Not Detected BARBARA RNA PCR [facility] LABORATORY Comment: This result should [...] using the Simplexa COVID-19 Direct Assay by [employer] as authorized by the FDA issued Emergency [...] fact sheets at the following FDA website: https://www.fda.gov/medical-devices/ngrwerlahsd-gtnllwx-8868-rtvlc-07-drbzffbpk- msa-qftonriujxplor-lcsppgq-devices/ncutr-rwvwnbujjqi-gbzw SARS-CoV-2 Source TOOL STORAGE ATTENDANT Swab [facility] LABORATORY Specimen (Source) Anatomical Collection Method Collection Time Re ceived Time Location / / Volume Laterality Nasopharyngeal Swab 12/08/2021 5:00 12/08 PM EDT 6:03 PM EDT Comment: Symptoms->Surveillance Resulting Agency Comment Spec In Lab Iker Cuevas MD MICROBIOLOGY - GENERAL ORDER [place] Performing Organization Address City/State/ZIP [place] [address] EKG 12 Lead (12/08/2021 4:40 PM EDT) Component Value Ref Range Test Analysis Performed Pathologis t Method Time At Signature Ventricular rate 78 BPM MUSE SYSTEM Atrial Rate 78 BPM MUSE SYSTEM P-R Interval 152 ms MUSE SYSTEM QRS Duration 96 ms MUSE SYSTEM Q-T Interval 396 ms MUSE SYSTEM QTC Calculated 451 ms MUSE SYSTEM (Bezet) Calculated P [place] 44 degrees MUSE SYSTEM Calculated R Napoleon -31 degrees MUSE SYSTEM Calculated T [place] 124 degrees MUSE SYSTEM INTERPRETATION Normal sinus [...] Glucose 400 (H) 65 - 199 [facility] mg/dL [facility] LABORATORY [...] [place] [address] documented in this encounter [...] Given 11/23 10:30 AM EDT 300 mcg (CERAMICS MACHINE OPERATOR) ONCE PRN, Starting on Wed12/10/21 at [...] Garcia RN) 0900 (Hold - Provider: Lilliana Estebna, VAMSI - Reason: Patient/family refused) 17 g, Oral, DAILY, First dose on 11/23 at 1715, Until Discontinued, Routine potassium chloride ER (K-Dur/Klor-Con) tablet 40 mEq ( COMPLETED) 1401 (Given - Provider: Emma Garcia, VAMSI) 40 mEq, Oral, ONCE, 1 dose, On Wed12/10/21 at 1245, Routine sodium chloride 0.9 % (flush) (BD PosiFlush Normal Sean ine 0.9) flush 5 mL 0805 ([facility] Hold - Provider: Admin Adt - Reason: Transfer to a Procedural area)0900 (Not Given - Provider: Emma Garcia RN - Reason: Transfer to a Procedural area)1230 ([facility] Unhold - Provider: Admin Adt)1746 (Given [...] 12/12/2021 acetaminophen (Tylenol) tablet 650 mg 0805 ([facility] Hold - Provider: Admin Adt - Reason: Transfer to a Procedural area)1230 ([facility] Unhold - Provider: Admin Adt) 650 [...] Routine bisacodyL (Dulcolax) suppository 10 mg 0805 ([facility] Hold - Provider: Admin Adt - Reason: Transfer to a Procedural area)1230 ([facility] Unhold - Provider: Admin Adt) 10 [...] (Intra-Procedure), Routine niCARdipine (Cardene) (100 mcg/mL) dilution (CERAMICS MACHINE OPERATOR) (CANCELED) 1030 (Given - Provider: [...] Normal Saen ine 0.9) flush 5-20 mL 804 (SEP [...] episode. & nbsp; For persistent hypoglycemia, con ncr operator longer-acting treatment for the duration of [...]
Routine documented in this encounter Care Teams Foxpro Developer Relationship Specialty Start Date End Date Lovely Vicente MD PCP - General 04/16/[address] [place] [address] documented as of this encounter
--- OUTSIDE RECORDS SUMMARY | 2022-05-20 09:32 | XMS_ITS | Encounter Summary ---
:1945 Author Organization [facility] [place] [address] Care Team Providers Name Role Phone Lovely Vicente MD Primary Care Provider Encounter Details Date Type Department Care Team Description 04/16/2021 Laboratory Appointment Lab 3L [facility] [place] [id number] Social History Tobacco Use Types Packs/Day Years [...] MD [facility] er [place], [place] [address] (Wo rk) 05/28/2022 Laboratory Appointment Lab 05/28/2022 Office Visit Cardiology Zulma Dolan MD [facility] [place] [address] Liz Poole PA [facility] [place] [address] 06/10/2022 Office Visit Dermatology Laura Scherer MD [facility] ER [address], [place] [address] (Wo rk) documented as of this encounter [...] Organization Address City/State/ZIP [place] [address] (ABNORMAL) Basic Metabolic Panel (non-fasting) (04/16/2021 9:58 AM EDT) athologist Signature Glucose Lvl 77 65 - 199 [facility] mg/dL [facility] LABORATORY Comment: Diabetes: >=200 mg/dL plus symp toms BUN 23 (H) 10 - 20 mg/dL [facility] LABORATORY Creatinine 1.26 0.80 - 1.50 mg/dL [facility] LABORATORY [...] Anion Gap 9 5 - 15 mmol/L [facility] [...] Organization Address City/State/ZIP [place] [address] documented in this encounter Visit Diagnoses Diagnosis Chronic systolic heart failure documented in this encounter Care Teams Customer Success Manager Relationship Specialty Start Date End Date Lovely Vicente MD PCP - General 04/16/[address] [place] [address] documented as of this encounter
--- OUTSIDE RECORDS SUMMARY | 2022-05-20 09:32 | XMS_ITS | Encounter Summary ---
:1945 Author Organization [facility] [place] [address] Care Team Providers Name Role Phone Lovely Vicente MD Primary Care Provider Encounter Details Date Type Department Care Team Description 03/20/2021 Ancillary Procedure [facility] [place] [address] [place] [address] [phone] Social History Tobacco Use Types Packs/Day Years [...] Dolan MD [facility] er Dr [place], [place] [address] (Wo rk) 05/28/2022 Laboratory Appointment Lab 05/28/2022 Office Visit Cardiology Zulma Dolan MD [facility] [place] [address] Liz Poole PA [facility] [place] [address] 06/10/2022 Office Visit Dermatology Laura Scherer MD [facility] ER DR [address] [place], [place] [address] (Wo rk) documented as of [...] Organization Address City/State/ZIP Code Phon e Number [place], [place] documented in this encounter Visit Diagnoses Not on filedocumented in this encounter Care Teams Secondary Connector Armature Relationship Specialty Start Date End Date Lovely Vicente MD PCP - General 04/16/[address] [place] [address] documented as of this encounter
--- OUTSIDE RECORDS SUMMARY | 2022-05-20 09:32 | XMS_ITS | Encounter Summary ---
:1945 Author Organization [facility] [place] [place] [address] Care Team Providers Name Role Phone Lovely Vicente MD Primary Care Provider Reason for Referral Consultation (Routine) - Closed Specialty Diagnoses / Referred By Contact Referred To Contact Procedures Cardiac Rehabilitation Diagnoses Acute HFrEF (heart failure with reduced ejection fraction) Janneth Padilla, Cardiac Rehab, [address] [place] CARDIOLOGY DEPT. [address] [place] [address] Referral ID Status Reason Start Date Expiration Date Visits V isits Requested Authorized [id number] Closed Consult, 12/12/2021 12/12/2022 36 36 Test & Treat Reason for Visit Auth/Cert Specialty Diagnoses / Procedures Referred By Contact Refer red To Contact Diagnoses NSTEMI Procedures emerg ipi Referral ID Status Reason Start Date Expiration Date Visits Requ ested Visits Authorized [id number] 1 1 Encounter Details Date Type Department Care Team Description 12/08/2021 - Hospital Encounter Intermediate Cardiac Iker Cuevas MD [facility] [place] [address] Non-ST elevation myocardial infarction ( NSTEMI); 12/12/2021 Care Unit Ifeanyi Rene MD [facility] [place] [address] ST elevation myocardial infarction (STEM I), unspecified artery; [facility] Acute HFr EF (heart failure with reduced ejection fraction) [place] [address] Social History Tobacco Use Types Packs/Day Years [...] Peter PA-C Kelly LaFlamme PA-C Cardiovascular Medicine [phone] Discharge Diagnoses (Hospital Problems) and Secondary Diagnoses [...] 3.75 guiding catheter and a 3.5 Fr [facility] [place] 20 Mhz using Manual pullback. Imaging was successful. Image quality was good. The ostial LCX showed moderate diffuse atherosclerotic plaque with scattered three quadrant calcification. Measurements were performed after pre-dilation. Post Intervention: The stent was well expanded and apposed. Intravascular Ultrasound was performed in the distal LM using a 7 Fr EBU 3.75 guiding catheter and a 3.5 Fr [facility] [place] 20 Mhz using Manual pullback. Imaging was [...] modification of this regimen. Consult [facility] Interventional Cardiology for questions. The 1 year [...] mg PO daily in place of lasix. [place] is new for him and he will [...] ~$24/mo; affordable per patient. Post [facility] he was started on Eliquis. He continued [...] appointments: During 8am-5pm Wednesday through Wednesday call [phone] to speak with a nurse in the cardiology clinic All other times call [phone] and ask to speak to the cardiology teacher retail zone specialist. Return to work: One week Driving: No driving for 48 hours after catheterization. Follow up Appointments: PCP Lovely Vicente MD [phone] to see patient at the end of December for annual check up. Patient to see Dr. Lorenzana at 1120 am at December 19 for a post hospital check up. Junior Graphic Designer Dr. De Oliveira to see you in [facility]. Left a message for office to set a date and time. Please call [phone] Nobles to see the patient for a same day cath in 2-3 weeks from now. Office to call with a date and time. For questions please call [phone] Home oxygen therapy: N/A Arrangements for VNA/home care: none Future Appointments and Orders Future Orders Complete By Expires Basic Metabolic Panel (non-fasting) [LAB15 Custom] 12/19/2021 (Approximate) 12/12/2022 Process Instructions: INCLUDES: Calcium, BUN, Creat, GFR, Glucose, Lytes Scheduling Instructions: Comments: Questions: Referral to Cardiac Rehab [[id number] Custom] As directed Process Instructions: If no [...] appointments: During 8am-5pm Wednesday through Wednesday call [phone] to speak with a nurse in the cardiology clinic All other times call [phone] and ask to speak to the cardiology teacher retail zone specialist. Return to work: One week Driving: No driving for 48 hours after catheterization. Follow up Appointments: PCP Lovely Vicente MD [phone] to see patient at the end of December for annual check up. Patient to see Dr. Lorenzana at 1120 am at December 19 for a post hospital check up. Junior Graphic Designer Dr. De Oliveira to see you in [facility]. Left a message for office to set a date and time. Please call [phone] Nobles to see the patient for a same day cath in 2-3 weeks from now. Office to call with a date and time. For questions please call [phone] Home oxygen therapy: N/A Arrangements for VNA/home [...] Progress Note Patient Name: Don Fatima Service: STAFF AUDITOR / PA Responsible Attending: Ifeanyi Truong MD [...] was given Lasix 80mg IV x1 in slabbing machine operator. Tolerated procedure well. Home today [...] 0.92* 0.89* Pertinent Radiographic/Diagnostic Results: R/[facility] 12/10/21 Hemodynamics: Right Heart Pressures Resting: Syst [...] with MD Janneth Neville PA 12/12/2021 Pager [phone] Associated attestation - Ifeanyi Truong MD - [...] each meal) Desirae Jett APRN [facility] Endocrinology Diabetes Management Pager [phone] 20 minutes of this 35 minute visit [...] Progress Note Patient Name: Don Fatima Service: STAFF AUDITOR / PA Responsible Attending: Iker Cuevas MD [...] was given Lasix 80mg IV x1 in slabbing machine operator. Tolerated procedure well. Review of [...] 0.92* 0.89* Pertinent Radiographic/Diagnostic Results: R/[facility] 12/10/21 Hemodynamics: Right Heart Pressures Resting: Syst [...] and answered his questions. Iker Cuevas MD [facility] Total time spent on review of records prior to visit, face to face time with patient during visit, documentation, and coordination of care with other clinicians: 25 minutes. . Iker Cuevas MD - 12/10/2021 12:30 PM EDT Images from the original note were not included. Inpatient Cardiology Progress Note Patient Name: Don Fatima Service: STAFF AUDITOR / PA Responsible Attending: Iker Cuevas MD [...] was given Lasix 80mg IV x1 in slabbing machine operator. Tolerated procedure well. Review of [...] ??? heparin (porcine) infusion 1,600 Units/hr (12/09/21 9528) PRN Meds:ipratropium-albuteroL, senna-docusate, bisacodyL, sodium chloride 0.9 [...] 0.92* 0.89* Pertinent Radiographic/Diagnostic Results: R/[facility] 12/10/21 Hemodynamics: Right Heart Pressures Resting: Syst [...] Discussed with MD Migdalia Peter PA-C Pager #[phone] 12/10/2021 Cardiology Attending Note I have seen [...] updated and given pictures. Iker Cuevas MD [facility] Total time spent on review of records prior to visit, face to face time with patient during visit, documentation, and coordination of care with other clinicians: 35 minutes. Iker Cuevas MD - 12/09/2021 7:28 AM EDT Images from the original note were not included. Inpatient Cardiology Progress Note Patient Name: Don Fatima Service: STAFF AUDITOR / PA Responsible Attending: Iker Cuevas MD [...] ??? heparin (porcine) infusion 1,600 Units/hr (12/09/21 9931) PRN Meds:ipratropium-albuteroL, sodium chloride 0.9 % (flush), [...] Discussed with MD Migdalia Peter PA-C Pager #[phone] 12/09/2021 Cardiology Attending Note I have seen [...] < 70 -CPAP tonight Iker Cuevas MD [facility] Total time spent on review of [...] [facility] OR ??? PRO AMPUTATION FOOT, TRANSMETATARSAL Right 08/09/2017 AMPUTATION, TRANSMETATARSAL (WRVU 12.71) performed by Yonathan mSith MD at [facility] OR ??? PRO CABG, ARTERIAL, SINGLE N/A 07/07/2017 @CABG, USING ARTERIAL GRAFT;SINGLE ARTERIAL GRAFT (WRVU 33.75) performed by Yuan Retana MD at [facility] OR ??? PRO CABG, ARTERY-VEIN, TWO N/A 07/07/2017 @CABG, TWO VENOUS GRAFTS & ARTERIAL GRAFT (WRVU 7.93) performed by Yuan Retana MD at [facility] OR ??? PRO COLONOSCOPY, REMV LESN, SNARE 01/16/2014 COLONOSCOPY, POLYPECTOMY, REMOVAL LESION BY SNARE performed by Nohemi Jaimes MD at [facility] ENDOSCOPY ??? PRO DRESSING CHANGE UNDER ANESTHESIA Right 08/11/2017 (MSURG) DRESSING CHANGE (FOR OTHER THAN IVAN) UNDER ANES. (WRVU 0.86) performed by Lamar Smith MD at [facility] OR ??? PRO ENDOSCOPY W/VIDEO-ASST VEIN HARVEST, CABG Right 07/07/2017 ENDOSCOPIC HARVEST VEIN(S) FOR CABG (WRVU 0.31) performed by Yuan Retana MD at [facility] OR ??? PRO THYROIDECTOMY 03/28/2013 THYROIDECTOMY, TOTAL OR COMPLETE performed by Manny Mcknight MD at [facility] MAIN OR Significant Family History: [...] ADRs. Trend troponins. Admission EKG. [facility] 12/09; consented. TTE. Telemetry monitoring, daily weights, [...] control; n.p.o. after midnight for [facility] #DVT prophy- heparin infusion #GI prophy- PPI Discussed with MD Morgan Peter PA-C APP2 pager [phone] 12/08/2021 Cardiology Attending Note I have seen [...] is type 1 due to graft or nome coronary stenosis vs acute injury from CHF. 3. PAF: currrently in NSR. Have replaced warfarin with heparin 4. PAD: stable 5. DM: stable 6. CKD: will monitor and minimize contrast. Pt very appreciative of Dr. Yuan Retana's care in 2018. Will let him know patient is here. Iker Cuevas MD [facility] documented in this encounter Miscellaneous Notes [...] Type: *No Product type* / Secondary Insurance: [employer] [place] Prescription Coverage: Yes This plan was [...] cath without complications. Migdalia Parker PA-C Pager #[phone] 12/10/2021 Initial Assessments - Nick Georges RN [...] COVID test: Lab Results Component Value Date [id number] Not Detected 12/08/2021 Past medical History: Past [...] Any patient receiving care at [facility] must abide by [place] law. The hierarchy [...] agent with financial power of real estate attorney or a conservator appointed in accordance [...] - standard, cane - straight Home Address: [address] [place] [address] [place] [address] Social & Family Supports: All names listed below confirmed with patient as current and correct Extended Emergency Contact Information Primary Emergency Contact: Kisha Fatima Address: [address] [place] [address] [place] [address] [facility] [place] Relation: Spouse Secondary Emergency Contact: Elba Swenson Address: [address] [place] Relation: Child Current Care [...] Type: *No Product type* / Secondary Insurance: Studentgems [employer] [facility] Prescription Coverage: Yes Preferred Pharmacy: [facility] Home Delivery [facility] [address] [facility] [address] - [address] [address] [place] Status: Patient is a : unable to assess Primary Care Provider: Lovely Vicente MD [phone] Patient/Caregiver Goals of Treatment: Get out of here Potential Needs for Transition of Care: none Agency Referrals: none patient has used [facility] in the past Transportation: no concerns Transportation Anticipated: family or friend will provide Concerns to be Addressed: patient refuses services, discharge planning Assessment: Patient is admitted to [facility] Service pager [phone] for 76 y.o.??male??with h/o??CAD s/p 3vCABG (THOMPSON-LAD, [...] status on current unit. Nick Georges RN pharmaceutical representative, Office of Care Management Pager: [phone] Brief Op Note - Vitaliy Nobles MD - 12/10/2021 8:31 AM EDT Images from the original note were not included. [facility] [place] [address] CORONARY ANGIOGRAM AND PERCUTANEOUS CORONARY INTERVENTION REPORT Patient: Don Fatima : 1945 MR number: [id number] Date of Service: 12/10/2021 Lens Dotter: Vitaliy Nobles MD Fellow: Rancho Woods MD [...] management and to provide a review of joint terminal attack controller diabetes care. Diabetes History: Don Fatima has had diabetes for 10 years. He has been on insulin for the last several years andis managed by his PCP. Lives in [place], [place] with his . States that he [...] Hold] heparin (porcine) infusion 1,600 Units/hr (12/09/21 2840) PRN: [SEP Hold] ipratropium-albuteroL, [SEP Hold] senna-docusate, [...] provide care for your patient Desirae Shaper REAL ESTATE LOAN OFFICER Endocrinology Pager [phone] 70 minutes of this [...] to remain on Med/Surg floor, please page [phone] for any further questions or concerns. LANDON [...] for further details. STEPHANIE Rebolledo 12/08/2021 Pager [phone] documented in this encounter Plan of Treatment Upcoming Encounters Date Type Specialty Care Team Description 05/28/2022 Appointment Cardiology Zulma Dolan MD [facility] [place], [place] [address] (Wo rk) 05/28/2022 Laboratory Appointment Lab 05/28/2022 Office Visit Cardiology Zulma Dolan MD [facility] [place] [address] Liz Poole PA [facility] [place] [address] 06/10/2022 Office Visit Dermatology Laura Scherer MD [facility] [address] [place], [place] [address] (Wo rk) Scheduled Referrals Name [...] 65 - 199 [facility] mg/dL [facility] Comment: Supplemental ranges: <140 mg/dL before meals <180 mg/dL all other times of the day Specimen Anatomical Collection Method Collection Time Receive d Time (Source) Location / / Volume Laterality Blood 12/12/2021 7:42 AM 7:42 EDT AM EDT Ifeanyi Truong MD POINT OF CARE TEST ORDERABLE S Performing Organization Address City/State/[place] [address] (ABNORMAL) Differential, Automated (12/12/2021 4:51 AM EDT) athologist Signature Neutrophils % 75.4 % [facility] Neutr Abs (ANC) 5.95 1.70 - [facility] 6.10 [facility] x10(3)/[facility] LABORATORY Lymphocytes % 12.2 % [facility] Lymphocytes Abs 1.0 0.9 - 3.2 [facility] x10(3)/[facility] LABORATORY Monocytes % 9.5 % [facility] Monocyte Abs 0.8 0.3 - 0.9 [facility] x10(3)/[facility] LABORATORY Eosinophils % 1.8 % [facility] Eosinophils Abs 0.1 0.0 - 0.4 [facility] x10(3)/[facility] LABORATORY Basophils % 0.5 % [facility] Basophils Abs 0.0 0.0 - 0.1 [facility] x10(3)/[facility] LABORATORY [...] Address City/State/[place] [address] (ABNORMAL) Hemogram (12/12/2021 4:51 AM EDT) Analysis Performed At Patho logist Time Signature WBC 7.9 4.0 - 9.5 [facility] x10(3)/[facility] LABORATORY RBC 4.19 (L) 4.58 - [facility] 5.54 [facility] x10(6)/[facility] LABORATORY Hemoglobin 12.1 (L) 13.7 - [facility] 16.5 g/dL [facility] Hematocrit 36.7 (L) 40.5 - [facility] 48.5 % [facility] MCV 87.6 82.9 - [facility] 93.1 fL [facility] MCH 28.9 27.5 - [facility] 32.1 pg [facility] MCHC 33.0 32.0 - [facility] 35.7 g/dL [facility] Platelets 231 145 - 357 [facility] x10(3)/[facility] LABORATORY RDWSD 47.2 (H) 36.0 - [facility] 45.0 [facility] LABORATORY RDWCV 14.6 (H) 11.4 - [facility] 13.8 % [facility] MPV 9.5 7.6 - 12.9 [facility] LABORATORY nRBC % Auto 0.0 % [facility] nRBC Abs Auto 0.000 0.000 - [place] 0.000 [facility] x10(3)/[facility] LABORATORY Specimen Anatomical Collection Method Collection Time Receive d Time (Source) Location / / Volume Laterality Blood 12/12/2021 4:51 AM 2 5:06 EDT AM EDT Resulting Agency Comment Spec In Lab Bijan Sun MD HEMATOLOGY ORDERABLES Performing Organization Address City/[facility]/ZIP [place] [address] (ABNORMAL) Prothrombin Time (12/12/2021 [...] HEMATOLOGY ORDERABLES Performing Organization Address City/[facility]/ZIP [place] [address] (ABNORMAL) BMP w/fasting Glucose (12/12/2021 4:51 AM EDT) athologist Signature Glucose 152 (H) 65 - 99 [facility] Fasting mg/dL [facility] Comment: ?Fasting* Glucose Interpretive [...] of Diabetes Mellitus, Position Statement from the [place] [employer]. ??Diabete s Care, Volume 33, [...] City/State/[place] [address] Magnesium (12/12/2021 4:51 AM EDT) P athologist Signature Magnesium 1.02 0.69 - 1.07 [facility] mmol/L [facility] Specimen Anatomical Collection Method Collection Time Receive d Time (Source) Location / / Volume Laterality Blood 12/12/2021 4:51 AM 2 5:06 EDT AM EDT Resulting Agency Comment Spec In Lab Iker Cuevas MD CHEMISTRY ORDERABLES Performing Organization Address City/[facility]/ZIP [place] [address] POCT Glucose (12/12/2021 3:43 AM EDT) P athologist Signature POC Glucose 138 65 - 199 [facility] mg/dL [facility] Comment: Supplemental ranges: <140 mg/dL before meals <180 mg/dL all other times of the day Specimen Anatomical Collection Method Collection Time Receive d Time (Source) Location / / Volume Laterality Blood 12/12/2021 3:43 AM 2 3:43 EDT AM EDT Iker Cuevas MD POINT OF CARE TEST ORDERABLE S Performing Organization Address City/State/Z[place] [address] POCT Glucose (12/11/2021 11:44 PM EDT) athologist Signature POC Glucose 124 65 - 199 [place] mg/dL [facility] Comment: Supplemental ranges: <140 mg/dL before meals <180 mg/dL all other times of the day Specimen Anatomical Collection Method Collection Time Receive d Time (Source) Location / / Volume Laterality Blood 12/11/2021 11:44 12/11/2021 PM EDT 11:44 PM EDT Iker Cuevas MD POINT OF CARE TEST ORDERABLE S Performing Organization Address City/[facility]/ZIP [place] [address] (ABNORMAL) POCT Glucose (12/11/2021 8:12 PM EDT) athologist Signature POC Glucose 200 (H) 65 - 199 [facility] mg/dL [facility] Comment: Supplemental ranges: <140 mg/dL before meals <180 mg/dL all other times of the day Specimen Anatomical Collection Method Collection Time Receive d Time (Source) Location / / Volume Laterality Blood 12/11/2021 8:12 PM 2 8:12 EDT PM EDT Iker Cuevas MD POINT OF CARE TEST ORDERABLE S Performing Organization Address City/[facility]/ZIP [place] [address] (ABNORMAL) POCT Glucose (12/11/2021 6:50 PM EDT) athologist Signature POC Glucose 245 (H) 65 - 199 [place] mg/dL [facility] Comment: Supplemental ranges: <140 mg/dL before meals <180 mg/dL all other times of the day Specimen Anatomical Collection Method Collection Time Receive d Time (Source) Location / / Volume Laterality Blood 12/11/2021 6:50 PM 2 6:50 EDT PM EDT Iker Cuevas MD POINT OF CARE TEST ORDERABLE S Performing Organization Address City/State/ZIP [place] [address] (ABNORMAL) POCT Glucose (12/11/2021 4:00 PM EDT) P athologist Signature POC Glucose 383 (H) 65 - 199 [facility] mg/dL [facility] Comment: Supplemental ranges: <140 mg/dL before meals <180 mg/dL all other times of the day Specimen Anatomical Collection Method Collection Time Receive d Time (Source) Location / / Volume Laterality Blood 12/11/2021 4:00 PM 4:00 EDT PM EDT Iker Cuevas MD POINT OF CARE TEST ORDERABLE S Performing Organization Address City/[facility]/ZIP [place] [address] (ABNORMAL) POCT Glucose (12/11/2021 12:01 PM EDT) athologist Signature POC Glucose 342 (H) 65 - 199 [facility] mg/dL [facility] Comment: Supplemental ranges: <140 mg/dL before meals <180 mg/dL all other times of the day Specimen Anatomical Collection Method Collection Time Receive d Time (Source) Location / / Volume Laterality Blood 12/11/2021 12:01 12/11/2021 PM EDT 12:01 PM EDT Iker Cuevas MD POINT OF CARE TEST ORDERABLE S Performing Organization Address City/[facility]/ZIP [place] [address] COVID-19 PCR (12/11/2021 10:13 AM EDT) [facility] gist Method Time Signature SARS-CoV-2 Not Detected Not Detected [place] RNA [facility] Comment: This result should [...] diagnosis of COVID-19 is performed using the [employer] Dianna FRIEND S-CoV-2 Assay as authorized by the FDA Emergency Use Authorization (EUA). This EUA assay is intended for In-vitro Diagnostic (IVD) use with respiratory sp ecimens such as nasopharyngeal swabs collected from individuals during the ac barrow phase of infection. This assay is performed based on the instructions for use provided by [employer] and additional guidance provided by CDC [...] fact sheets at the following FDA website: https://www.fda.gov/medical-devices/eyrqgzwrurd-xgkonsr-2259-srfpb-34-kzkniehql- joq-wsbaigqtsbuqws-inkushj-devices/qtvmo-evuoywvoxqf-gjcv SARS-Cov-2 RNA Source STAFF AUDITOR Swab [facility] Specimen (Source) Anatomical Collection Method Collection Time Re ceived Time Location / / Volume Laterality Nasopharyngeal Swab 12/11/2021 10:13 05/03/2022 AM EDT 11:16 AM EDT Comment: Symptoms->Surveillance Resulting Agency Comment Spec In Lab Iker Cuevas MD MICROBIOLOGY - GENERAL ORDER [place] Performing Organization Address City/[facility] [place] [address] POCT Glucose (12/11/2021 7:34 AM EDT) athologist Signature POC Glucose 198 65 - 199 [facility] mg/dL [facility] Comment: Supplemental ranges: <140 mg/dL before meals <180 mg/dL all other times of the day Specimen Anatomical Collection Method Collection Time Receive d Time (Source) Location / / Volume Laterality Blood 12/11/2021 7:34 AM 2 7:34 EDT AM EDT Iker Cuevas MD POINT OF CARE TEST ORDERABLE S Performing Organization Address City/[facility]/ZIP [place] [address] (ABNORMAL) POCT Glucose (12/11/2021 5:07 AM EDT) P athologist Signature POC Glucose 208 (H) 65 - 199 [facility] mg/dL [facility] Comment: Supplemental ranges: <140 mg/dL before meals <180 mg/dL all other times of the day Specimen Anatomical Collection Method Collection Time Receive d Time (Source) Location / / Volume Laterality Blood 12/11/2021 5:07 AM 2 5:07 EDT AM EDT Iker Cuevas MD POINT OF CARE TEST ORDERABLE S Performing Organization Address City/[facility]/[place] [address] (ABNORMAL) Differential, Automated (12/11/2021 4:28 AM EDT) [facility] Method Time Signature Neutrophils % 79.6 % [facility] Neutr Abs (ANC) 7.01 (H) 1.70 - [facility] 6.10 [facility] x10(3)/[facility] LABORATORY Lymphocytes % 9.1 % [facility] LABORATORY Lymphocytes Abs 0.8 (L) 0.9 - 3.2 [facility] x10(3)/[facility] LABORATORY Monocytes % 9.2 % [facility] LABORATORY Monocyte Abs 0.8 0.3 - 0.9 [facility] x10(3)/[facility] LABORATORY Eosinophils % 1.3 % [facility] LABORATORY Eosinophils Abs 0.1 0.0 - 0.4 [facility] x10(3)/[facility] LABORATORY Basophils % 0.5 % [facility] LABORATORY Basophils Abs 0.0 0.0 - 0.1 [facility] x10(3)/[facility] LABORATORY Immature [...] Melisa Gran Abs 0.03 0.00 - 0.04 x10(3)/[facility] MAR Y [facility] LABORATORY Specimen Anatomical Collection Method Collection Time Receive d Time (Source) Location / / Volume Laterality Blood 12/11/2021 4:28 AM 4:37 EDT AM EDT Resulting Agency Comment Spec In Lab Bijan Sun MD HEMATOLOGY ORDERABLES Performing Organization Address City/[facility]/[place] [address] (ABNORMAL) Hemogram (12/11/2021 4:28 AM EDT) Analysis Performed At Patho logist Time Signature WBC 8.8 4.0 - 9.5 [facility] x10(3)/[facility] LABORATORY RBC 4.15 (L) 4.58 - [facility] 5.54 [facility] x10(6)/[facility] LABORATORY Hemoglobin 11.9 (L) 13.7 - [facility] 16.5 g/dL [facility] LABORATORY Hematocrit 36.9 (L) 40.5 - [facility] 48.5 % [facility] LABORATORY MCV 88.9 82.9 - [facility] 93.1 [facility] LABORATORY MCH 28.7 27.5 - [facility] 32.1 pg [facility] LABORATORY MCHC 32.2 32.0 - [facility] 35.7 g/dL [facility] LABORATORY Platelets 211 145 - 357 [facility] x10(3)/[facility] LABORATORY RDWSD 48.3 (H) 36.0 - [facility] 45.0 [facility] LABORATORY RDWCV 14.8 (H) 11.4 - [facility] 13.8 % [facility] LABORATORY MPV 9.6 7.6 - 12.9 [facility] LABORATORY nRBC % Auto 0.0 % [facility] LABORATORY nRBC Abs Auto 0.000 0.000 - [facility] 0.000 [facility] x10(3)/[facility] LABORATORY Specimen Anatomical Collection Method Collection Time Receive d Time (Source) Location / / Volume Laterality Blood 12/11/2021 4:28 AM 2 4:37 EDT AM EDT Resulting Agency Comment Spec In Lab Bijan Sun MD HEMATOLOGY ORDERABLES Performing Organization Address City/State/[place] [address] (ABNORMAL) Prothrombin Time (12/11/2021 [...] City/State/Z[place] [address] (ABNORMAL) BMP w/fasting Glucose (12/11/2021 4:28 AM EDT) athologist Signature Glucose 207 (H) 65 - 99 [facility] Fasting mg/dL [facility] LABORATORY Comment: ?Fasting* Glucose Interpretive [...] of Diabetes Mellitus, Position Statement from the [place] [employer]. ??Diabete s Care, Volume 33, [...] CHEMISTRY ORDERABLES Performing Organization Address City/[facility] [place] [address] Magnesium (12/11/2021 4:28 AM EDT) P athologist Signature Magnesium 1.04 0.69 - 1.07 [facility]/L [facility] LABORATORY Specimen Anatomical Collection Method Collection Time Receive d Time (Source) Location / / Volume Laterality Blood 12/11/2021 4:28 AM 2 4:37 EDT AM EDT Resulting Agency Comment Spec In Lab Iker Cuevas MD CHEMISTRY ORDERABLES Performing Organization Address City/State/ZIP Code Phon e Number [place] [id number]OS[address] POCT Glucose (12/11/2021 3:58 AM EDT) athologist Signature POC Glucose 189 65 - 199 [place] mg/dL [facility] LABORATORY Comment: Supplemental ranges: <140 mg/dL before meals <180 mg/dL all other times of the day Specimen Anatomical Collection Method Collection Time Receive d Time (Source) Location / / Volume Laterality Blood 12/11/2021 3:58 AM 2 3:58 EDT AM EDT Iker Cuevas MD POINT OF CARE TEST ORDERABLE S Performing Organization Address City/[facility]/ZIP [place] [address] (ABNORMAL) POCT Glucose (12/10/2021 11:45 PM EDT) athologist Signature POC Glucose 205 (H) 65 - 199 [facility] [place] mg/dL [facility] LABORATORY Comment: Supplemental ranges: <140 mg/dL before meals <180 mg/dL all other times of the day Specimen Anatomical Collection Method Collection Time Receive d Time (Source) Location / / Volume Laterality Blood 12/10/2021 11:45 12/10/2021 PM EDT 11:45 PM EDT Iker Cuevas MD POINT OF CARE TEST ORDERABLE S Performing Organization Address City/[facility]/ZIP [place] [address] (ABNORMAL) POCT Glucose (12/10/2021 7:54 PM EDT) athologist Signature POC Glucose 225 (H) 65 - 199 [place] [place] mg/dL [facility] LABORATORY Comment: Supplemental ranges: <140 mg/dL before meals <180 mg/dL all other times of the day Specimen Anatomical Collection Method Collection Time Receive d Time (Source) Location / / Volume Laterality Blood 12/10/2021 7:54 PM 2 7:54 EDT PM EDT Iker Cuevas MD POINT OF CARE TEST ORDERABLE S Performing Organization Address City/State/[place] [address] Potassium (12/10/2021 7:46 PM EDT) athologist Signature Potassium 4.2 3.5 - 5.0 [facility] mmol/L [facility] LABORATORY Comment: Please note: ??Patients [...] City/[facility]/Z[place] [address] (ABNORMAL) Basic Metabolic Panel (non-fasting) (12/10/2021 6:12 PM EDT) athologist Signature Glucose Lvl 246 (H) 65 - 199 [facility] mg/dL [facility] LABORATORY Comment: [...] City/[facility]/[place] [address] POCT Glucose (12/10/2021 4:59 PM EDT) P athologist Signature POC Glucose 158 65 - 199 [facility] mg/dL [facility] LABORATORY Comment: Supplemental ranges: <140 mg/dL before meals <180 mg/dL all other times of the day Specimen Anatomical Collection Method Collection Time Receive d Time (Source) Location / / Volume Laterality Blood 12/10/2021 4:59 PM 2 4:59 EDT PM EDT Iker Cuevas MD POINT OF CARE TEST ORDERABLE S Performing Organization Address City/State/[place] [address] (ABNORMAL) POCT Glucose (12/10/2021 12:43 PM EDT) P athologist Signature POC Glucose 241 (H) 65 - 199 [place] [place] mg/dL [facility] LABORATORY Comment: Supplemental ranges: <140 [...] Number [facility] [address] EKG 12 Lead (12/10/2021 11:17 AM EDT) Component Value Ref Range Test Analysis Performed Pathologis t Method Time At Signature Ventricular rate 62 BPM MUSE SYSTEM Atrial Rate 62 BPM MUSE SYSTEM P-R Interval 142 ms MUSE SYSTEM QRS Duration 100 ms MUSE SYSTEM Q-T Interval 434 ms MUSE SYSTEM QTC Calculated 440 ms MUSE SYSTEM (Bezet) Calculated P [place] 34 degrees MUSE SYSTEM Calculated R [place] -39 degrees MUSE SYSTEM Calculated T [place] 92 degrees MUSE SYSTEM INTERPRETATION Normal sinus [...] PM EDT ?[facility] ? Cardiac Cathete rization/Intervention Report ? Patient Name: Don Fatima. ? Procedure Date: 12/10/2021 ? A #: [id number] ? Primary Physician: Nobles, Vitaliy P ? Case #: [id number] ? File Name: [id number] ? Catheterization Order Number: [id number] ? [facility] ?Nurse Practitioner [facility] ? Final Report [place], [place] ? Patient Name: ? Don E. Stewa rt ? ID#: ?[id number] ? : ?1945 ? Procedure Date: ? December 10, 2021 ? Case #: ? [id number] ? Room: ? 1 ? Case Physician: [...] was ?designated as ASA Class III. e [facility] clinical frailty scale is 5: Mildly [...] procedure was Urgent. The indication for ?the slabbing machine operator visit is ACS great er [...] ?3.75 guiding catheter and a 3.5 Fr [facility] [place] 20 Mhz using Manual ?pullback. ??Imaging was [...] ?3.75 guiding catheter and a 3.5 Fr [facility] [place] 20 Mhz using Manual ?pullback. ??Imaging was [...] - 01/14/2022 [facility] Cardiac Catheterization/Intervention Re port Patient Name: Kushal Don VedaMadiha Procedure Date: 12/10/2021 A #: [id number] Primary Physician: Vitaliy Nobles Case #: [id number] File Name: [id number] Catheterization Order Number: [id number] [facility] Nurse Practitioner [facility] Final Report [place], [place] Patient Name: Don Fatima ID#: [...] e was Urgent. The indication for the slabbing machine operator visit is ACS greater than [...] and a 3.5 Fr [facility] [place] 20 Mhz using Manual pullback. Imaging was [...] and a 3.5 Fr [facility] [place] 20 Mhz using Manual pullback. Imaging was successful. Image quality was good. The distal LM showed moderate diffuse atherosclero tic plaque. Post Intervention: The stent was well e xpanded and apposed. Indication for Intervention: Coronary intervention was indicated for primary therapy for an acute myocardial infarction. The priority for the procedure was Urgent. The [facility] indication for the procedure was N [...] require modification of this regimen. Consult D [facility] [...] 65 - 199 [facility] mg/dL [facility] LABORATORY Comment: Supplemental ranges: <140 mg/dL before meals <180 mg/dL all other times of the day Specimen Anatomical Collection Method Collection Time Receive d Time (Source) Location / / Volume Laterality Blood 12/10/2021 10:30 12/10/2021 AM EDT 10:30 AM EDT Iker Cuevas MD POINT OF CARE TEST ORDERABLE S Performing Organization Address City/State/[place] [address] (ABNORMAL) POCT Glucose (12/10/2021 9:48 AM EDT) athologist Signature POC Glucose 279 (H) 65 - 199 [facility] mg/dL [facility] LABORATORY Comment: Supplemental ranges: <140 mg/dL before meals <180 mg/dL all other times of the day Specimen Anatomical Collection Method Collection Time Receive d Time (Source) Location / / Volume Laterality Blood 12/10/2021 9:48 AM 9:48 EDT AM EDT Iker Cuevas MD POINT OF CARE TEST ORDERABLE S Performing Organization Address City/State/ZIP [place] [address] (ABNORMAL) POCT Glucose (12/10/2021 9:07 AM EDT) P athologist Signature POC Glucose 268 (H) 65 - 199 [facility] mg/dL [facility] LABORATORY Comment: Supplemental ranges: <140 mg/dL before meals <180 mg/dL all other times of the day Specimen Anatomical Collection Method Collection Time Receive d Time (Source) Location / / Volume Laterality Blood 12/10/2021 9:07 AM 9:07 EDT AM EDT Iker Cuevas MD POINT OF CARE TEST ORDERABLE S Performing Organization Address City/State/ZIP [place] [address] (ABNORMAL) Point of Care Blood Gas Historical (12/10/2021 9:04 AM EDT) Patholo gist Method Time Signature POC pH 7.40 7.35 - [facility] 7.45 [facility] LABORATORY POC PCO2 40 35 - 45 [facility] mmHg [facility] LABORATORY POC PO2 63 (L) 85 - 104 [facility] LABORATORY POC Base Excess 0.0 -3.0 - 3.0 [facility] K mmol/L [facility] LABORATORY POC HCO3 24.8 20.0 - [facility] 26.0 [facility] mmol/[facility] LABORATORY POC Sodium 143 135 - 145 [facility] mmol/L [facility] LABORATORY POC Potassium 3.7 3.5 - 5.0 [facility] mmol/L [facility] LABORATORY POC Ionized Ca 1.07 (L) 1.15 - [facility] 1.33 [facility] mmol/L HOSPITAL LABORATORY POC Hematocrit 30.0 (L) 40.0 - [facility] 51.0 % [facility] LABORATORY POC Calc Hgb 10.2 (L) 13.7 - [facility] 17.5 g/dL [facility] LABORATORY Comment: The calculation of hemoglobin f rom hematocrit assumes a normal MCHC. POC Bgas Loc CC LAB [facility] LABORATORY Specimen Anatomical Collection Method Collection Time Receive d Time (Source) Location / / Volume Laterality Blood 12/10/2021 9:04 AM 2 EDT 12:00 PM EDT Ifeanyi Truong MD CHEMISTRY ORDERABLES Performing Organization Address City/[facility]/ZIP [place] [address] (ABNORMAL) POCT Glucose (12/10/2021 7:19 AM EDT) athologist Signature POC Glucose 274 (H) 65 - 199 [facility] mg/dL [facility] LABORATORY Comment: Supplemental ranges: <140 mg/dL before meals <180 mg/dL all other times of the day Specimen Anatomical Collection Method Collection Time Receive d Time (Source) Location / / Volume Laterality Blood 12/10/2021 7:19 AM 2 7:19 EDT AM EDT Iker Cuevas MD POINT OF CARE TEST ORDERABLE S Performing Organization Address City/[facility]/Z[place] [address] Heparin (unfractionated) Level (12/10/2021 [...] Address City/State/ZIP Code Phon e Number [address] (ABNORMAL) Differential, Automated (12/10/2021 4:25 AM EDT) [facility] Method Time Signature Neutrophils % 79.8 % [facility] LABORATORY Neutr Abs (ANC) 7.47 (H) 1.70 - [facility] 6.10 [facility] x10(3)/[facility] LABORATORY Lymphocytes % 10.6 % [facility] LABORATORY Lymphocytes Abs 1.0 0.9 - 3.2 [facility] x10(3)/[facility] LABORATORY Monocytes % 8.4 % [facility] LABORATORY Monocyte Abs 0.8 0.3 - 0.9 [facility] x10(3)/[facility] LABORATORY Eosinophils % 0.6 % [facility] LABORATORY Eosinophils Abs 0.1 0.0 - 0.4 [facility] x10(3)/[facility] LABORATORY Basophils % 0.2 % [facility] LABORATORY Basophils Abs 0.0 0.0 - 0.1 [facility] x10(3)/[facility] LABORATORY Immature [...] HEMATOLOGY ORDERABLES Performing Organization Address City/[facility]/ZIP Code Phon e Number [address] (ABNORMAL) Hemogram (12/10/2021 4:25 AM EDT) Analysis Performed At Patho logist Time Signature WBC 9.4 4.0 - 9.5 [facility] x10(3)/[facility] LABORATORY RBC 3.81 (L) 4.58 - [facility] 5.54 [facility] x10(6)/[facility] LABORATORY Hemoglobin 11.1 (L) 13.7 - [facility] 16.5 g/dL [facility] LABORATORY Hematocrit 34.0 (L) 40.5 - [facility] 48.5 % [facility] LABORATORY MCV 89.2 82.9 - [facility] 93.1 [facility] LABORATORY MCH 29.1 27.5 - [facility] 32.1 pg [facility] LABORATORY MCHC 32.6 32.0 - [facility] 35.7 g/dL [facility] LABORATORY Platelets 183 145 - 357 [facility] x10(3)/[facility] LABORATORY RDWSD 49.9 (H) 36.0 - [facility] 45.0 [facility] LABORATORY RDWCV 15.2 (H) 11.4 - [facility] 13.8 % [facility] LABORATORY MPV 9.8 7.6 - 12.9 [facility] LABORATORY nRBC % Auto 0.0 % [facility] LABORATORY nRBC Abs Auto 0.000 0.000 - [facility] 0.000 [facility] x10(3)/[facility] LABORATORY Specimen Anatomical Collection Method Collection Time Receive d Time (Source) Location / / Volume Laterality Blood 12/10/2021 4:25 AM 2 4:34 EDT AM EDT Resulting Agency Comment Spec In Lab Morgan BROWN HEMATOLOGY ORDERABLES Performing Organization Address City/State/[place] [address] (ABNORMAL) Prothrombin Time (12/10/2021 [...] Organization Address City/State/ZIP Code Phon e Number [place] [phone]OS[address] (ABNORMAL) BMP w/fasting Glucose (12/10/2021 4:25 AM EDT) athologist Signature Glucose 210 (H) 65 - 99 [facility] Fasting mg/dL [facility] LABORATORY Comment: ?Fasting* Glucose Interpretive [...] of Diabetes Mellitus, Position Statement from the [place] [employer]. ??Diabete s Care, Volume 33, [...] Address City/State/[place] [address] Magnesium (12/10/2021 4:25 AM EDT) P athologist Signature Magnesium 0.95 0.69 - 1.07 [facility]/L [facility] LABORATORY Specimen Anatomical Collection Method Collection Time Receive d Time (Source) Location / / Volume Laterality Blood 12/10/2021 4:25 AM 2 4:34 EDT AM EDT Resulting Agency Comment Spec In Lab Iker Cuevas MD CHEMISTRY ORDERABLES Performing Organization Address City/[facility]/ZIP [place] [address] POCT Glucose (12/10/2021 1:58 AM EDT) athologist Signature POC Glucose 164 65 - 199 [facility]/dL [facility] LAB[facility] Comment: Supplemental ranges: <140 mg/dL before meals <180 mg/dL all other times of the day Specimen Anatomical Collection Method Collection Time Receive d Time (Source) Location / / Volume Laterality Blood 12/10/2021 1:58 AM 2 1:58 EDT AM EDT Iker Cuevas MD POINT OF CARE TEST ORDERABLE S Performing Organization Address City/[facility]/ZIP [place] [address] (ABNORMAL) POCT Glucose (12/09/2021 9:02 PM EDT) athologist Signature POC Glucose 313 (H) 65 - 199 [facility] mg/dL [facility] LAB[facility]ORY Comment: Supplemental ranges: <140 mg/dL before meals <180 mg/dL all other times of the day Specimen Anatomical Collection Method Collection Time Receive d Time (Source) Location / / Volume Laterality Blood 12/09/2021 9:02 PM 2 9:02 EDT PM EDT Iker Cuevas MD POINT OF CARE TEST ORDERABLE S Performing Organization Address City/[facility]/ZIP [place] [address] Heparin (unfractionated) Level (12/09/2021 [...] Address City/State/[place] [address] (ABNORMAL) Basic Metabolic Panel (non-fasting) (12/09/2021 7:30 PM EDT) athologist Signature Glucose Lvl 372 (H) 65 - 199 [facility] mg/dL [facility] LABORATORY Comment: [...] City/State/ZIP [place] [address] (ABNORMAL) POCT Glucose (12/09/2021 6:34 PM EDT) P athologist Signature POC Glucose 408 (H) 65 - 199 [facility] mg/dL [facility] LABORATORY Comment: Supplemental ranges: <140 mg/dL before meals <180 mg/dL all other times of the day Specimen Anatomical Collection Method Collection Time Receive d Time (Source) Location / / Volume Laterality Blood 12/09/2021 6:34 PM 2 6:34 EDT PM EDT Iker Cuevas MD POINT OF CARE TEST ORDERABLE S Performing Organization Address City/[facility]/ZIP [place] [address] (ABNORMAL) POCT Glucose (12/09/2021 6:32 PM EDT) P athologist Signature POC Glucose 356 (H) 65 - 199 [facility] mg/dL [facility] LAB[facility] Comment: Supplemental ranges: <140 mg/dL before meals <180 mg/dL all other times of the day Specimen Anatomical Collection Method Collection Time Receive d Time (Source) Location / / Volume Laterality Blood 12/09/2021 6:32 PM 2 6:32 EDT PM EDT Iker Cuevas MD POINT OF CARE TEST ORDERABLE S Performing Organization Address City/State/ZIP [place] [address] (ABNORMAL) POCT Glucose (12/09/2021 4:19 PM EDT) athologist Signature POC Glucose 347 (H) 65 - 199 [facility] mg/dL [facility] LAB[facility] Comment: Supplemental ranges: <140 mg/dL before meals <180 mg/dL all other times of the day Specimen Anatomical Collection Method Collection Time Receive d Time (Source) Location / / Volume Laterality Blood 12/09/2021 4:19 PM 2 4:19 EDT PM EDT Iker Cuevas MD POINT OF CARE TEST ORDERABLE S Performing Organization Address City/[facility]/Z[place] [address] Heparin (unfractionated) Level (12/09/2021 [...] City/State/Z[place] [address] (ABNORMAL) POCT Glucose (12/09/2021 12:02 PM EDT) P athologist Signature POC Glucose 235 (H) 65 - 199 [facility] mg/dL [facility] LAB[facility]ORY Comment: Supplemental ranges: <140 mg/dL before meals <180 mg/dL all other times of the day Specimen Anatomical Collection Method Collection Time Receive d Time (Source) Location / / Volume Laterality Blood 12/09/2021 12:02 12/09/2021 PM EDT 12:02 PM EDT Iker Cuevas MD POINT OF CARE TEST ORDERABLE S Performing Organization Address City/[facility]/ZIP [place] [address] (ABNORMAL) POCT Glucose (12/09/2021 9:44 AM EDT) P athologist Signature POC Glucose 214 (H) 65 - 199 [facility] mg/dL [facility] Comment: Supplemental ranges: <140 mg/dL before meals <180 mg/dL all other times of the day Specimen Anatomical Collection Method Collection Time Receive d Time (Source) Location / / Volume Laterality Blood 12/09/2021 9:44 AM 9:44 EDT AM EDT Iker Cuevas MD POINT OF CARE TEST ORDERABLE S Performing Organization Address City/[facility]/ZIP [place] [address] EKG 12 Lead (12/09/2021 7:57 AM EDT) Component Value Ref Range Test Analysis Performed Pathologis t Method Time At Signature Ventricular rate 101 BPM MUSE SYSTEM Atrial Rate 101 BPM MUSE SYSTEM P-R Interval 150 ms MUSE SYSTEM QRS Duration 112 ms MUSE SYSTEM Q-T Interval 364 ms MUSE SYSTEM QTC Calculated 471 ms MUSE SYSTEM (Bezet) Calculated P [place] 59 degrees MUSE SYSTEM Calculated R [place] -42 degrees MUSE SYSTEM Calculated T [place] 102 degrees MUSE SYSTEM INTERPRETATION Sinus tachycardia Occasional Premature ventricular com plexes MUSE SYSTEM Left axis deviation 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) Abnormal ECG When compared with ECG of 08-DEC-2021 16:40, Premature ventricular complexes are now Present Confirmed by MD Fernandez Danette ([id number]) on 12/10/2021 4:55:06 PM Specimen Anatomical Collection Method Collection Time Receive d Time (Source) Location / / Volume Laterality 12/09/2021 7:57 AM 2 4:55 EDT PM EDT Iker Cuevas MD ECG ORDERABLES Performing Organization Address City/State/ZIP Code Phon e Number MUSE SYSTEM (ABNORMAL) POCT Glucose (12/09/2021 7:28 AM EDT) P athologist Signature POC Glucose 263 (H) 65 - 199 [facility] mg/dL [facility] LAB[facility] Comment: Supplemental ranges: <140 mg/dL before meals <180 mg/dL all other times of the day Specimen Anatomical Collection Method Collection Time Receive d Time (Source) Location / / Volume Laterality Blood 12/09/2021 7:28 AM 2 7:28 EDT AM EDT Iker Cuevas MD POINT OF CARE TEST ORDERABLE S Performing Organization Address City/State/Z[place] [address] (ABNORMAL) Hemoglobin A1c (12/09/2021 [...] Mellitus, Diabetes Care 2013; 36: Suppl. 1, Z13-58 Est Avg Gluc See note mg/dL [place] [...] with hemoglobinopathies. Additional resources are available on [email or web address] ADA website. Macario HAMMOND, Ruthann J, Deysi R, et al. ??Tr anslating the A1C assay into estimated average glucose values. ??Diabetes Care 2008:31(8):6950-6089. Specimen Anatomical Collection Method Collection Time Receive d Time (Source) Location / / Volume Laterality Blood Venous Draw / 12/09/2021 6:18 AM 12/10/19 22 Unknown EDT 12:24 PM EDT Resulting Agency Comment Spec In Lab Migdalia BROWN CHEMISTRY ORDERABLES Performing Organization Address City/State/[place] [address] (ABNORMAL) Prothrombin Time (12/09/2021 [...] Migdalia BROWN HEMATOLOGY ORDERABLES Performing Organization Address City/[facility]/ZIP Code Phon e Number [address] Heparin (unfractionated) Level (12/09/2021 [...] HEMATOLOGY ORDERABLES Performing Organization Address City/[facility]/ZIP [place] [address] (ABNORMAL) Differential, Automated (12/09/2021 6:18 AM EDT) Patholo gist Method Time Signature Neutrophils % 91.5 % [facility] LABORATORY Neutr Abs (ANC) 15.78 (H) 1.70 - [facility] 6.10 [facility] x10(3)/[facility] L LABORATORY Lymphocytes % 2.9 % [facility] LABORATORY Lymphocytes Abs 0.5 (L) 0.9 - 3.2 [facility] x10(3)/[facility] LABORATORY Monocytes % 4.9 % [facility] LABORATORY Monocyte Abs 0.8 0.3 - 0.9 [facility] x10(3)/[facility] LABORATORY Eosinophils % 0.0 % [facility] LABORATORY Eosinophils Abs 0.0 0.0 - 0.4 [facility] x10(3)/[facility] LABORATORY Basophils % 0.2 % [facility] LABORATORY Basophils Abs 0.0 0.0 - 0.1 [facility] x10(3)/[facility] LABORATORY Immature [...] Address City/State/[place] [address] (ABNORMAL) Hemogram (12/09/2021 6:18 AM EDT) Analysis Performed At Patho logist Time Signature WBC 17.2 (H) 4.0 - 9.5 [facility] x10(3)/[facility] LABORATORY RBC 4.32 (L) 4.58 - [facility] 5.54 [facility] x10(6)/[facility] LABORATORY Hemoglobin 12.6 (L) 13.7 - [facility] 16.5 g/dL [facility] LABORATORY Hematocrit 38.9 (L) 40.5 - [facility] 48.5 % [facility] LABORATORY MCV 90.0 82.9 - [facility] 93.1 [facility] LABORATORY MCH 29.2 27.5 - [facility] 32.1 pg [facility] LABORATORY MCHC 32.4 32.0 - [facility] 35.7 g/dL [facility] LABORATORY Platelets 193 145 - 357 [facility] x10(3)/[facility] LABORATORY RDWSD 50.4 (H) 36.0 - [facility] 45.0 [facility] LABORATORY RDWCV 15.2 (H) 11.4 - [facility] 13.8 % [facility] LABORATORY MPV 9.5 7.6 - 12.9 [facility] LABORATORY nRBC % Auto 0.0 % [facility] LABORATORY nRBC Abs Auto 0.000 0.000 - [facility] 0.000 [facility] x10(3)/[facility] LABORATORY Specimen Anatomical Collection Method Collection Time Receive d Time (Source) Location / / Volume Laterality Blood 12/09/2021 6:18 AM 6:33 EDT AM EDT Resulting Agency Comment Spec In Lab Morgan BROWN HEMATOLOGY ORDERABLES Performing Organization Address City/State/[place] [address] Lipid Panel (Reflex Direct LDL) (12/09/2021 6:18 AM EDT) P athologist Signature Chol, Total 105 mg/dL [facility] LABORATORY Comment: Lower Risk: <200 mg/dL Average Risk: 200-239 mg/dL Higher Risk: >py=539 mg/dL Triglycerides 133 mg/dL [facility] LABORATORY Comment: Average Risk/Lower Risk: <150 mg/dL Borderline High Risk: 150-199 mg/dL High Risk: 200-499 mg/dL Very High Risk: >ua=217 mg/dL HDL 42 mg/dL [facility] LABORATORY Comment: Males: ?? Higher Risk: <40 mg/dL Females: ?? Higher Risk: <50 mg/dL LDL Cholesterol 36 mg/dL [facility] LABORATORY Comment: Lowest Risk: <100 mg/dL Lower Risk: 100-129 mg/dL Borderline High Risk: 130-159 mg/dL High Risk: 160-189 mg/dL Very High Risk: >xj=427 mg/dL Chol/HDL Ratio 2.5 ratio [facility] LABORATORY Lipid Interpretation See Note [facility] LABORATORY Comment: Lipid management should be guided by a p atient? s ASCVD risk, goals and preferences. ACC/AHA Guidelines recommend high intens ity statin if clinical ASCVD or LDL greater than or equal to 190 mg/dL. http://Sensorion.Liibook/JSG-LSJ-Vnpnebfwc Adults aged 40-75 with LDL 70-189 mg/dL should have their 10 year ASCVD risk estimated with the ACC/AHA ASCVD risk es timator http://tools.acc.org/DFCBL-Oepf-Wxqkszjt r/ Statin should be discussed if risk [...] Address City/State/[place] [address] TSH (12/09/2021 6:18 AM EDT) athologist Signature TSH 1.60 0.27 - 4.20 [facility] mcIU/mL [facility] LAB[facility]ORY Comment: Reference Interval (mcIU/mL): Females: ??First Trimester: 0.23-3.88 ??Second Trimester: 0.22-3.90 ??Third Trimester: 0.44-4.66 Specimen Anatomical Collection Method Collection Time Receive d Time (Source) Location / / Volume Laterality Blood 12/09/2021 6:18 AM 2 6:33 EDT AM EDT Resulting Agency Comment Spec In Lab Iker Cuevas MD CHEMISTRY ORDERABLES Performing Organization Address City/[facility]/ZIP [place] [address] Hepatic Function Panel (12/09/2021 6:18 AM EDT) athologist Signature Total Protein 7.3 6.1 - 8.0 [facility] g/dL [facility]ORY Albumin 4.2 3.2 - 5.2 [facility] RYAN g/dL [facility] AST 25 0 - 39 [facility] RYAN unit/L [facility] ALT 15 0 - 55 [facility] unit/L [facility] Alk Phos 75 40 - 130 [facility] unit/L [facility] Total 1.1 0.2 - 1.3 [facility] Bilirubin mg/dL [facility] LABOR[facility]ORY Bili, Direct 0.2 0.0 - 0.3 [facility] mg/dL [facility] LABOR[facility]ORY Specimen Anatomical Collection Method Collection Time Receive d Time (Source) Location / / Volume Laterality Blood 12/09/2021 6:18 AM 2 6:33 EDT AM EDT Resulting Agency Comment Spec In Lab Iker Cuevas MD CHEMISTRY ORDERABLES Performing Organization Address City/[facility] [place] [address] (ABNORMAL) BMP w/fasting Glucose (12/09/2021 6:18 AM EDT) P athologist Signature Glucose 235 (H) 65 - 99 [facility] Fasting mg/dL [facility]ORY Comment: ?Fasting* Glucose Interpretive [...] of Diabetes Mellitus, Position Statement from the [place] [employer]. ??Diabete s Care, Volume 33, [...] Address City/State/ZIP Code Phon e Number [address] Magnesium (12/09/2021 6:18 AM EDT) P athologist Signature Magnesium 0.81 0.69 - 1.07 [facility] mmol/L [facility] LABORATORY Specimen Anatomical Collection Method Collection Time Receive d Time (Source) Location / / Volume Laterality Blood 12/09/2021 6:18 AM 2 6:33 EDT AM EDT Resulting Agency Comment Spec In Lab Iker Cuevas MD CHEMISTRY ORDERABLES Performing Organization Address City/State/Z[place] [address] (ABNORMAL) Troponin (12/09/2021 6:18 AM EDT) athologist Signature Troponin-T 1.13 (H) 0.00 - [facility] 0.00 ng/mL [facility] LABOR[facility]ORY Comment: The 99th percentile [...] additional sample may be indicated. Reference: Third [place] Definition of Myocardial Infarction. Journal of the [place] [employer] 2012;60:1581-98 Specimen Anatomical Collection Method Collection Time Receive d Time (Source) Location / / Volume Laterality Blood 12/09/2021 6:18 AM 6:33 EDT AM EDT Resulting Agency Comment Spec In Lab Iker Cuevas MD CHEMISTRY ORDERABLES Performing Organization Address City/State/ZIP Code Phon e Number [place] [phone] XR Chest One View [...] who have questions please contact the health child care leader that requested your imaging first. ? Narrative [...] ho have questions please contact the health child care leader that requested your imaging first. Amber Sanches MD IMG DX ORDERABLES (ABNORMAL) BLOOD GAS 2 ARTERIAL (12/09/2021 5:14 AM EDT) Analysis Performed At Path logis Time Signature pH Art 7.43 7.35 - [facility] 7.45 [facility] LABOR[facility]ORY pCO2 Art 36 35 - 45 [facility] LABORATORY pO2 Art 67 (L) 85 - 104 [facility] LABORATORY HCO3 Art 23.4 20.0 - [facility] 26.0 [facility] mmol/L [facility] LABORATORY BE Art -0.9 -3.0 - 3.0 [facility] mmol/L [facility] Hgb Blood Gas 13.2 (L) 13.7 - [facility] 16.5 g/dL [facility] O2HB Art 91.3 (L) 94.0 - [facility] 97.0 % [facility] LAB[facility] COHB Art 0.4 % [...] [facility] LAB[facility] PF Ratio Art 191 [facility] LABORATORY Specimen Anatomical Collection Method Collection Time Receive d Time (Source) Location / / Volume Laterality Blood 12/09/2021 5:14 AM 5:14 EDT AM EDT Iker Cuevas MD CHEMISTRY ORDERABLES Performing Organization Address City/State/[place] [address] POCT Glucose (12/09/2021 4:46 AM EDT) athologist Signature POC Glucose 198 65 - 199 [facility] mg/dL [facility] Comment: Supplemental ranges: <140 mg/dL before meals <180 mg/dL all other times of the day Specimen Anatomical Collection Method Collection Time Receive d Time (Source) Location / / Volume Laterality Blood 12/09/2021 4:46 AM 2 4:46 EDT AM EDT Iker Cuevas MD POINT OF CARE TEST ORDERABLE S Performing Organization Address City/State/[place] [address] (ABNORMAL) POCT Glucose (12/09/2021 3:01 AM EDT) athologist Signature POC Glucose 225 (H) 65 - 199 [facility] mg/dL [facility] Comment: Supplemental ranges: <140 mg/dL before meals <180 mg/dL all other times of the day Specimen Anatomical Collection Method Collection Time Receive d Time (Source) Location / / Volume Laterality Blood 12/09/2021 3:01 AM 2 3:01 EDT AM EDT Iker Cuevas MD POINT OF CARE TEST ORDERABLE S Performing Organization Address City/State/Z[place] [address] (ABNORMAL) POCT Glucose (12/08/2021 10:55 PM EDT) athologist Signature POC Glucose 327 (H) 65 - 199 [facility] mg/dL [facility] Comment: Supplemental ranges: <140 mg/dL before meals <180 mg/dL all other times of the day Specimen Anatomical Collection Method Collection Time Receive d Time (Source) Location / / Volume Laterality Blood 12/08/2021 10:55 12/08/2021 PM EDT 10:55 PM EDT Iker Cuevas MD POINT OF CARE TEST ORDERABLE S Performing Organization Address City/State/Z[place] [address] Heparin (unfractionated) Level (12/08/2021 10:03 PM EDT) P athologist Signature Heparin UFH 0.18 IU/mL [facility] [...] Address City/State/[place] [address] (ABNORMAL) Troponin (12/08/2021 10:03 PM EDT) athologist Signature Troponin-T 0.92 (H) 0.00 - [facility] 0.00 ng/mL [facility] Comment: The 99th percentile [...] additional sample may be indicated. Reference: Third [place] Definition of Myocardial Infarction. Journal of the [place] [employer] 2012;60:1581-98 Specimen Anatomical Collection Method Collection Time Receive d Time (Source) Location / / Volume Laterality Blood 12/08/2021 10:03 12/08/2021 PM EDT 10:31 PM EDT Resulting Agency Comment Spec In Lab Iker Cuevas MD CHEMISTRY ORDERABLES Performing Organization Address City/[facility]/ZIP [place] [address] (ABNORMAL) POCT Glucose (12/08/2021 8:22 PM EDT) athologist Signature POC Glucose 429 (H) 65 - 199 [facility] RYAN mg/dL [facility] Comment: Supplemental ranges: <140 mg/dL before meals <180 mg/dL all other times of the day Specimen Anatomical Collection Method Collection Time Receive d Time (Source) Location / / Volume Laterality Blood 12/08/2021 8:22 PM 2 8:22 EDT PM EDT Iker Cuevas MD POINT OF CARE TEST ORDERABLE S Performing Organization Address City/[facility]/ZIP [place] [address] (ABNORMAL) POCT Glucose (12/08/2021 7:06 PM EDT) P athologist Signature POC Glucose 442 (H) 65 - 199 [facility] mg/dL [facility] Comment: Supplemental ranges: <140 mg/dL before meals <180 mg/dL all other times of the day Specimen Anatomical Collection Method Collection Time Receive d Time (Source) Location / / Volume Laterality Blood 12/08/2021 7:06 PM 2 7:06 EDT PM EDT Iker Cuevas MD POINT OF CARE TEST ORDERABLE S Performing Organization Address City/[facility]/ZIP [place] [address] Magnesium (12/08/2021 6:02 PM EDT) athologist Signature Magnesium 0.86 0.69 - 1.07 [facility] mmol/L [facility] LAB[facility]ORY Specimen Anatomical Collection Method Collection Time Receive d Time (Source) Location / / Volume Laterality Blood 12/08/2021 6:02 PM 6:36 EDT PM EDT Resulting Agency Comment Spec In Lab Iker Cuevas MD CHEMISTRY ORDERABLES Performing Organization Address City/State/ZIP Code Phon e Number [address] (ABNORMAL) Basic Metabolic Panel (non-fasting) (12/08/2021 6:02 PM EDT) athologist Signature Glucose Lvl 392 (H) 65 - 199 [facility] mg/dL [facility]ORY Comment: [...] City/State/ZIP [place] [address] (ABNORMAL) Differential, Automated (12/08/2021 6:02 PM EDT) [facility] gist Method Time Signature Neutrophils % 89.5 % [facility] LABORATORY Neutr Abs (ANC) 13.97 (H) 1.70 - [facility] 6.10 [facility] x10(3)/[facility] LABORATORY Lymphocytes % 3.7 % [facility] LABORATORY Lymphocytes Abs 0.6 (L) 0.9 - 3.2 [facility] x10(3)/[facility] LABORATORY Monocytes % 6.1 % [facility] LABORATORY Monocyte Abs 1.0 (H) 0.3 - 0.9 [facility] x10(3)/[facility] LABORATORY Eosinophils % 0.0 % [facility]ORY Eosinophils Abs 0.0 0.0 - 0.4 [facility] x10(3)/[facility] LABORATORY Basophils % 0.2 % [facility]ATORY Basophils Abs 0.0 0.0 - 0.1 [facility] x10(3)/[facility] LABORATORY Immature [...] Address City/State/[place] [address] (ABNORMAL) Hemogram (12/08/2021 6:02 PM EDT) Analysis Performed At Patho logist Time Signature WBC 15.6 (H) 4.0 - 9.5 [facility] x10(3)/[facility] LABORATORY RBC 4.05 (L) 4.58 - [facility] RYAN 5.54 [facility] x10(6)/[facility] LABORATORY Hemoglobin 11.8 (L) 13.7 - [facility] 16.5 g/dL [facility] LAB[facility]ORY Hematocrit 35.8 (L) 40.5 - [facility] 48.5 % [facility] MCV 88.4 82.9 - [facility] 93.1 [facility] LABORATORY MCH 29.1 27.5 - [facility] RYAN 32.1 pg [facility] LAB[facility]ATORY MCHC 33.0 32.0 - [facility] 35.7 g/dL [facility] Platelets 178 145 - 357 [facility] x10(3)/[facility] LABORATORY RDWSD 49.3 (H) 36.0 - [facility] RYAN 45.0 [facility] LABORATORY RDWCV 15.1 (H) 11.4 - [facility] RYAN 13.8 % [facility] LABORATORY MPV 10.4 7.6 - 12.9 [facility] LABORATORY nRBC % Auto 0.0 % [facility] LABORATORY nRBC Abs Auto 0.000 0.000 - [place] 0.000 [facility] x10(3)/[facility] LABORATORY Specimen Anatomical Collection Method Collection Time Receive d Time (Source) Location / / Volume Laterality Blood 12/08/2021 6:02 PM 2 6:36 EDT PM EDT Resulting Agency Comment Spec In Lab Morgan BROWN HEMATOLOGY ORDERABLES Performing Organization Address City/State/ZIP Code [place] [address] (ABNORMAL) Troponin (12/08/2021 6:02 PM EDT) athologist Signature Troponin-T 0.89 (H) 0.00 - [facility] 0.00 ng/mL [facility] Comment: The 99th percentile [...] additional sample may be indicated. Reference: Third [place] Definition of Myocardial Infarction. Journal of the [place] [employer] 2012;60:1581-98 Specimen Anatomical Collection Method Collection Time Receive d Time (Source) Location / / Volume Laterality Blood 12/08/2021 6:02 PM 2 6:36 EDT PM EDT Resulting Agency Comment Spec In Lab Iker Cuevas MD CHEMISTRY ORDERABLES Performing Organization Address City/State/ZIP Code [place] [address] COVID-19 PCR (12/08/2021 5:00 PM EDT) [facility] Method Time Signature SARS-CoV-2 Not Detected Not Detected [facility] RNA PCR [facility] LABORATORY Comment: This result should [...] using the Simplexa COVID-19 Direct Assay by Toonimojoi marcum as authorized by the FDA issued [...] fact sheets at the following FDA website: https://www.fda.gov/medical-devices/rgzehwhushb-yjlrymo-4868-kjayc-41-zbdmmtsid- luy-nnemcsuxgpswpx-lmiohnr-devices/fqgye-nbuhnnhpmfl-kmrd SARS-CoV-2 Source STAFF AUDITOR Swab [facility] LABORATORY Specimen (Source) Anatomical Collection Method Collection Time Re ceived Time Location / / Volume Laterality Nasopharyngeal Swab 12/08/2021 5:00 12/08 PM EDT 6:03 PM EDT Comment: Symptoms->Surveillance Resulting Agency Comment Spec In Lab Iker Cuevas MD MICROBIOLOGY - GENERAL ORDER [place] Performing Organization Address City/[facility] Phon e Number [place] [phone]OS[address] EKG 12 Lead (12/08/2021 4:40 PM EDT) Component Value Ref Range Test Analysis Performed Pathologis t Method Time At Signature Ventricular rate 78 BPM MUSE SYSTEM Atrial Rate 78 BPM MUSE SYSTEM P-R Interval 152 ms MUSE SYSTEM QRS Duration 96 ms MUSE SYSTEM Q-T Interval 396 ms MUSE SYSTEM QTC Calculated 451 ms MUSE SYSTEM (Bezet) Calculated P [place] 44 degrees MUSE SYSTEM Calculated R [place] -31 degrees MUSE SYSTEM Calculated T [place] 124 degrees MUSE SYSTEM INTERPRETATION Normal sinus [...] ECG ORDERABLES Performing Organization Address City/[facility] Phon e Number MUSE SYSTEM (ABNORMAL) POCT Glucose (12/08/2021 4:34 PM EDT) P athologist Signature POC Glucose 400 (H) 65 - 199 [facility] mg/dL [facility] Comment: Supplemental ranges: <140 mg/dL before meals <180 mg/dL all other times of the day Specimen Anatomical Collection Method Collection Time Receive d Time (Source) Location / / Volume Laterality Blood 12/08/2021 4:34 PM 4:34 EDT PM EDT Iker Cuevas MD POINT OF CARE TEST ORDERABLE S Performing Organization Address City/State/ZIP Code Phon e [place] [address] documented in this encounter [...] Coronary atherosclerosis of unspecified type of vessel, nome or graft Cardiomyopathy, ischemic Other specified forms [...] 40% oral geL(Linked Group 2) 08 ([facility] Hold - Provider: Admin Adt [...] (Intra-Procedure), Routine niCARdipine (Cardene) (100 mcg/mL) dilution (ARMATURE STRAIGHTENER) (CANCELED) 1030 (Given - Provider: Vitaliy Nobles [...] episode. & nbsp; For persistent hypoglycemia, con gauge checker longer-acting treatment for the duration of the [...]
Routine documented in this encounter Care Teams Roustabout Relationship Specialty Start Date End Date Lovely Vicente MD PCP - General 04/16/[address] [place] [address] [address] [place] [address] documented as of this encounter
--- OUTSIDE RECORDS SUMMARY | 2022-05-20 09:32 | XMS_ITS | Encounter Summary ---
:1945 [place] [address] Care Team Providers Name Role Phone Lovely Vicente MD Primary Care Provider Reason for Visit Reason Comments Skin Cancer Examination Encounter Details Date Type Department Care Team Description 03/20/2021 Office Visit Dermatology at [facility] Brennen Rene MD History of melanoma; [facility] History of dysplastic nevus; [address] Multiple benign nevi; [place] [address] [facility] [place] (seborrheic keratosis); [phone]-DERMATOLOGY [place] (actinic keratosis) [place], [place] [address] Social History Tobacco Use [...] no SOCIAL HISTORY 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 Last visit at [facility] Derm: 01/02/2020 Medications: Reviewed in [...] FSE; history of Melanoma []Note routed to clerical secretary [x]Recall has been placed in scheduling system []Appointment scheduled at checkout Scribe attestation: Yoana Pang LPN has performed the documentation for this encounter in the presence of and acting as a scribe for LAURA RENE MD I performed the above scribed service and agree with the accuracy of the documentation in this encounter. Reviewed and signed by: LAURA RENE MD Dermatology [facility] documented in this encounter Plan of Treatment Upcoming Encounters Date Type Specialty Care Team Description 05/28/2022 Appointment Cardiology TrudiZulma Knowles MD [facility] [place], [place] [address] (Wo rk) 05/28/2022 Laboratory Appointment Lab 05/28/2022 Office Visit Cardiology Zulma Dolan MD [facility] [place] [address] Liz Poole PA [facility] [place] [address] 06/10/2022 Office Visit Dermatology Laura Rene MD [facility] [address] [place], [place] [address] (Wo rk) documented as of this encounter Visit Diagnoses Diagnosis History of melanoma Personal history of malignant melanoma o f skin History of dysplastic nevus Personal history of diseases of skin and subcutaneous tissue Multiple benign nevi Benign neoplasm of skin, site unspecifie d [place] (seborrheic keratosis) Other seborrheic keratosis [place] (actinic keratosis) Actinic keratosis documented in this encounter Care Teams Cane Flume Chute Operator Relationship Specialty Start Date End Date Lovely Vicente MD PCP - General 04/16/[address] [place] [address] documented as of this encounter
--- OUTSIDE RECORDS SUMMARY | 2022-05-20 09:32 | XMS_ITS | Encounter Summary ---
:1945 [place] [address] Care Team Providers Name Role Phone Lovely Vicente MD Primary Care Provider Encounter Details Date Type Department Care Team Description 12/07/2021 Ancillary Procedure [facility] Lovely murillo MD [facility] [address] [address] [place], [place] [phone] (Wo lissa) [address] [phone] Social History Tobacco Use Types Packs/Day Years [...] [facility] [address] [place] [address] (Wo rk) 05/28/2022 Laboratory Appointment Lab 05/28/2022 Office Visit Cardiology Zulma Dolan MD [facility] [place] [address] Liz Poole PA [facility] [place] [address] 06/10/2022 Office Visit Dermatology Laura Scherer MD [facility] [address] [place], [place] 0[address] (Wo [...] Organization Address City/State/ZIP Code Phon e Number [place], [place] documented in this encounter Visit Diagnoses Not on filedocumented in this encounter Care Teams Other Wood Processing Machine Operator Relationship Specialty Start Date End Date Lovely Vicente MD PCP - General 04/16/[address] [place] [address] documented as of this encounter
--- OUTSIDE RECORDS SUMMARY | 2022-05-20 09:32 | XMS_ITS | Encounter Summary ---
:1945 Author Organization [facility] [place] [address] Care Team Providers Name Role Phone Lovely Vicente MD Primary Care Provider Encounter Details Date Type Department Care Team Description 12/07/2021 External Results Administration [facility] [place] [address] Social History Tobacco Use Types Packs/Day [...] [facility] [place] [address] (Wo rk) 05/28/2022 Laboratory Appointment Lab 05/28/2022 Office Visit Cardiology Zulma Dolan MD [facility] [place] [address] Liz Poole PA [facility] [place] [address] 06/10/2022 Office Visit Dermatology Laura Scherer MD [facility] ER [address] [place], [place] 037 (Wo rk) documented as of [...] filedocumented in this encounter Care Teams Senior Climate Advisor Relationship Specialty Start Date End Date Lovely Vicente MD PCP - General 04/16/[address] [place] [address] documented as of this encounter
--- OUTSIDE RECORDS SUMMARY | 2022-05-20 09:32 | XMS_ITS | Encounter Summary ---
:1945 Author Organization [facility] [place] [address] Care Team Providers Name Role Phone Lovely Vicente MD Primary Care Provider Encounter Details Date Type Department Care Team Description 12/07/2021 Telephone Cardiology Eddi Briceño Jr., [facility] [place] [address] [facility] [phone] CARDIOLOGY DEPT [place], [place] 0375 (Wo rk) Social [...] [facility] Referring Provider: Marisela Dean, PASTRY SUPERVISOR [address] [place] [address] Don Veda Kushal 76 y.o. w / [...] bpm, LAFB, poor R wave progression, septal KS, and lateral STD, overall no significantchange from [...] Cardiology Zulma Dolan MD [facility] [place] 0[address] (Wo rk) 05/28/2022 Laboratory Appointment Lab 05/28/2022 Office Visit Cardiology Zulma Dolan MD [facility] [place] [address] Liz Poole PA [facility] [place] [address] 06/10/2022 Office Visit Dermatology Laura Scherer MD [facility] DR [address] [place], [place] [address] (Wo rk) documented as of this encounter Visit Diagnoses Not on filedocumented in this encounter Care Teams Land Inspector Relationship Specialty Start Date End Date Lovely Vicente MD PCP - General 04/16/15 [facility] [address] [place] [address] documented as of this encounter
--- OUTSIDE RECORDS SUMMARY | 2022-05-20 09:32 | XMS_ITS | Encounter Summary ---
:1945 Author Organization [facility] [place] [address] Care Team Providers Name Role Phone Lovely Vicente MD Primary Care Provider Encounter Details Date Type Department Care Team Description 03/20/2021 Ancillary Procedure Radiology Library [place] [address] [place] [address] [phone] Social History Tobacco Use Types Packs/Day Years [...] Zulma Dolan MD [facility] [place], [place] [address] (Wo rk) 05/28/2022 Laboratory Appointment Lab 05/28/2022 Office Visit Cardiology Zulma Dolan MD [facility] [place] [address] Liz Poole PA [facility] [place] [address] 06/10/2022 Office Visit Dermatology Laura Scherer MD [facility] ER [address] [place], [place] 0[address] (Wo rk) documented as of [...] Organization Address City/State/ZIP Code Phon e Number [place], [place] documented in this encounter Visit Diagnoses Not on filedocumented in this encounter Care Teams Contact Lens Flashing Puncher Relationship Specialty Start Date End Date Lovely Vicente MD PCP - General 04/16/[address] [place] [address] documented as of this encounter
--- OUTSIDE RECORDS SUMMARY | 2022-05-20 09:32 | XMS_ITS | Encounter Summary ---
:1945 Author Organization [facility] [place] [address] Care Team Providers Name Role Phone Lovely Vicente MD Primary Care Provider Encounter Details Date Type Department Care Team Description 12/08/2021 External Results Non-Invasive Cardiology Lab Mar y None [facility] [place] [address] Social History Tobacco Use Types Packs/Day [...] Zulma Dolan MD [facility] er [place], [place] [address] (Wo rk) 05/28/2022 Laboratory Appointment Lab 05/28/2022 Office Visit Cardiology Zulma Dolan MD [facility] [place] [address] Liz Poole PA [facility] [place] [address] 06/10/2022 Office Visit Dermatology Laura Scherer MD [facility] [address] [place], [place] [address] (Wo rk) documented as of [...] filedocumented in this encounter Care Teams Hospice Chaplain Relationship Specialty Start Date End Date Lovely Vicente MD PCP - General 04/16/[address] [place] [address] documented as of this encounter
--- OUTSIDE RECORDS SUMMARY | 2022-05-20 09:32 | XMS_ITS | Encounter Summary ---
:1945 Author Organization [facility] [place] [address] Care Team Providers Name Role Phone Lovely Vicente MD Primary Care Provider Encounter Details Date Type Department Care Team Description 03/20/2021 Ancillary Procedure Radiology Library [place] [address] [place] [address] [phone] Social History Tobacco Use Types Packs/Day Years [...] Zulma Dolan MD [facility] er [address] [place], [place] [address] (Wo rk) 05/28/2022 Laboratory Appointment Lab 05/28/2022 Office Visit Cardiology Zulma Dolan MD [facility] [place] [address] Liz Poole PA [facility] [place] [address] 06/10/2022 Office Visit Dermatology Laura Scherer MD [facility] ER DR [address]MAT [place], [place] [address] (Wo rk) documented as of [...] Address City/State/ZIP Code Phon e Number [place], [place] documented in this encounter Visit Diagnoses Not on filedocumented in this encounter Care Teams Mainspring Torque Tester Relationship Specialty Start Date End Date Lovely Vicente MD PCP - General 04/16/[address] [place] [address] documented as of this encounter
--- OUTSIDE RECORDS SUMMARY | 2022-05-20 09:32 | XMS_ITS | Encounter Summary ---
:1945 [place] [address] Care Team Providers Name Role Phone Lovely Vicente MD Primary Care Provider Encounter Details Date Type Department Care Team Description 04/16/2021 Office Visit Cardiology at [facility] Liz Poole, Chronic systolic heart [facility] [place] [address] Cardiology Dept [phone] [place], [place] [address] Social History Tobacco Use Types [...] was feeling good. 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 07/07/2019 - 07/21/2019 Zio Patch Braid Cutter The patient had a minimum heart rate [...] K+ 5.2 today 6. Post-op atrial fibrillation [id number] (CHF, HTN, DM, vascular disease, thromboembolism) On warfarin - recent labile INR Will discuss with PCP, option of Luis Daniel 7. PAD 08/06/2017: Right 1st, 2nd, 3rd toe amputation 08/11/2017: Left??femoral arterial access, RLE??angiogram, Balloon angioplasty of R PT 10/25/2017: right [place] bypass [place] [...] Zulma Dolan MD [facility] [place], [place] 0[address] (Wo rk) 05/28/2022 Laboratory Appointment Lab 05/28/2022 Office Visit Cardiology Zulma Dolan MD [facility] [place] [address] Liz Poole PA [facility] [place] [address] 06/10/2022 Office Visit Dermatology Laura Scherer MD [facility] DR [address]MAT [place], [place] 0[address] (Wo rk) documented as of this encounter Results (ABNORMAL) Basic Metabolic Panel (non-fasting) (04/16/2021 9:58 AM EDT) athologist Signature Glucose Lvl 77 65 - 199 [facility] mg/dL [facility] Comment: Diabetes: >=200 mg/dL plus symp toms BUN 23 (H) 10 - 20 mg/dL [facility] Creatinine 1.26 0.80 - 1.50 mg/dL [facility] Sodium 140 135 - 145 mmol/L [facility] Potassium 5.2 (H) 3.5 - 5.0 mmol/L [facility] [...] mg/dL [facility] Estimated GFR 55 (L) >=60 [...] [place] [address] (ABNORMAL) pro-Brain Natriuretic Peptide [...] [place] [address] documented in this encounter Visit Diagnoses Diagnosis Chronic systolic heart failure documented in this encounter Care Teams Coding Consultant Relationship Specialty Start Date End Date Lovely Vicente MD PCP - General 04/16/[address] [place] [address] documented as of this encounter
--- OUTSIDE RECORDS SUMMARY | 2022-05-20 09:32 | XMS_ITS | Encounter Summary ---
:1945 [place] [address] Care Team Providers Name Role Phone Lovely Vicente MD Primary Care Provider Encounter Details Date Type Department Care Team Description 03/20/2021 Telephone Neurology at [facility] Hugo Gaston MD [facility] [place] [address] [place] [address] [phone] (Wo rk) Social History Tobacco Use Types [...] Gaston MD Department of Neurology Pager # [phone] documented in this encounter Plan of Treatment Upcoming Encounters Date Type Specialty Care Team Description 05/28/2022 Appointment Cardiology Zulma Dolan MD [facility] [place], [place] [address] (Wo rk) 05/28/2022 Laboratory Appointment Lab 05/28/2022 Office Visit Cardiology Zulma Dolan MD [facility] [place] [address] Liz Poole PA [facility] [place] [address] 06/10/2022 Office Visit Dermatology Laura Scherer MD [facility] DR [address] [place], [place] [address] (Wo rk) documented as of this encounter Visit Diagnoses Not on filedocumented in this encounter Care Teams Hydrography Teacher Relationship Specialty Start Date End Date Lovely Vicente MD PCP - General 04/16/[address] [place] [address] documented as of this encounter
--- OUTSIDE RECORDS SUMMARY | 2022-05-20 09:33 | XMS_ITS | Encounter Summary ---
:1945 Author Organization [facility] [place] [address] Care Team Providers Name Role Phone Lovely Vicente MD Primary Care Provider Reason for Visit Reason Onset Date Comments Other 03/24/2019 cardiac clearance ne eded Encounter Details Date Type Department Care Team Description 03/24/2019 Telephone Cardiology at [place] Danette Maxwell, Other (cardiac [facility] SHERIFFS OFFICER clearance needed) [place] [address] CARDIOLOGY [place], [place] 0[address] (Wo rk) Social History Tobacco [...] AM EDT Leonela from [facility] [place] called requesting cardiac clearance for this patient who is to have a colonoscopy on 04/04/19. He is on anticoagulation and they will need to bridge him. Their phone # [phone], fax# [phone]. Thank you. documented in this encounter Plan of Treatment Upcoming Encounters Date Type Specialty Care Team Description 05/28/2022 Appointment Cardiology Zulma Dolan MD [facility] [place], [place] 0[address] (Wo rk) 05/28/2022 Laboratory Appointment Lab 05/28/2022 Office Visit Cardiology Zulma Dolan MD [facility] [place] [address] Liz Poole PA [facility] [place] [address] 06/10/2022 Office Visit Dermatology Laura Scherer MD [facility] [address] [place], [place] [address] (Wo rk) documented as of this encounter Visit Diagnoses Not on filedocumented in this encounter Care Teams Rehabilitation Worker Relationship Specialty Start Date End Date Lovely Vicente MD PCP - General 04/16/[address] [place] [address] documented as of this encounter
--- OUTSIDE RECORDS SUMMARY | 2022-05-20 09:33 | XMS_ITS | Encounter Summary ---
:1945 Author Organization [facility] Address [facility] [place] [address] Care Team Providers Name Role Phone Lovely Vicente MD Primary Care Provider Encounter Details Date Type Department Care Team Description 01/02/2020 Office Visit Dermatology at [facility] ctinic keratoses; Abdelrahman HOOPER MD History of melanoma; [address] [facility] History of dysplastic nevus; [place] [address] Multiple benign nevi; [phone] [facility] Seborrheic yossi lancaster; RD-DERMATOLGY Skin exam for malignant neoplasm [place], [place] [address] Social History Tobacco Use Types [...] Zulma Dolan MD [facility] Dr [place], [place] [address] (Wo lissa) 05/28/2022 Laboratory Appointment Lab 05/28/2022 Office Visit Cardiology Zulma Dolan MD [facility] [place] [address] Liz Poole PA [facility] [place] [address] 06/10/2022 Office Visit Dermatology Laura Scherer MD [facility] DR [address] [place], [place] 0[address] (Wo lissa) documented as of [...] skin documented in this encounter Care Teams Orthotist/Prosthetist Relationship Specialty Start Date End Date Lovely Vicente MD PCP - General 04/16/15 [facility] [address] [place] [address] documented as of this encounter
--- OUTSIDE RECORDS SUMMARY | 2022-05-20 09:33 | XMS_ITS | Encounter Summary ---
:1945 Author Organization [facility] [place] [address] Care Team Providers Name Role Phone Loevly Vicente MD Primary Care Provider Encounter Details Date Type Department Care Team Description 10/05/2017 Unscheduled Cardiology at [facility] RONNIE Sin PATIENT NOT SEEN Encounter [facility] Tamiko Martinez MD [facility] [place] [address] CARDIOLOGY DEPT [phone] [place] [address] Social History Tobacco Use Types Packs/Day Years [...] Cardiology Zulma Dolan MD [facility] [address] [place], [place] [address] (Wo rk) 05/28/2022 Laboratory Appointment Lab 05/28/2022 Office Visit Cardiology Zulma Dolan [place] [facility] [place] [address] Liz Poole PA [facility] [place] [address] 06/10/2022 Office Visit Dermatology Laura Scherer MD [facility] DR [address] [place], [place] [address] (Wo rk) documented as of this encounter Visit Diagnoses Diagnosis DH PATIENT NOT SEEN documented in this encounter Care Teams Forestry Foreman Relationship Specialty Start Date End Date Lovely Vicente MD PCP - General 04/16/[address] [place] [address] documented as of this encounter
--- OUTSIDE RECORDS SUMMARY | 2022-05-20 09:33 | XMS_ITS | Encounter Summary ---
:1945 [place] [address] Care Team Providers Name Role Phone Lovely Vicente MD Primary Care Provider Encounter Details Date Type Department Care Team Description 08/15/2018 Laboratory Appointment Lab [facility]L [facility] [place] [address] Social History Tobacco Use Types Packs/Day [...] Dolan MD [facility] er [place], [place] [address] (Wo rk) 05/28/2022 Laboratory Appointment Lab 05/28/2022 Office Visit Cardiology Zulma Dolan MD [facility] [place] [address] [facility] [place] [address] 06/10/2022 Office Visit Dermatology Laura Scherer MD [facility] ER DR [address]MAT [place], [place] 0[address] (Wo rk) documented [...] Organization Address City/State/[place] [address] documented in this encounter Visit Diagnoses Not on filedocumented in this encounter Care Teams Oracle Etl Developer Relationship Specialty Start Date End Date Lovely Vicente MD PCP - General 04/16/[address] [place] [address] documented as of this encounter
--- OUTSIDE RECORDS SUMMARY | 2022-05-20 09:33 | XMS_ITS | Encounter Summary ---
:1945 Author Organization [facility] [place] [address] Care Team Providers Name Role Phone Lovely Vicente MD Primary Care Provider Encounter Details Date Type Department Care Team Description 08/15/2018 Office Visit Cardiology at [facility] Danette Maxwell Chronic systolic heart failu re; [facility] A, EXHAUST AND MUFFLER REPAIRER Cardiomyopathy, ischemic; [facility] ASCVD (arteriosclerotic card iovascular disease); [place], [place] Essential hypertension; [address] CARDIOLOGY MARIA VICTORIA on CPAP [phone] [place], [place] [address] Social History Tobacco Use Types [...] in this encounter Progress Notes Danette Maxwell, EXHAUST AND MUFFLER REPAIRER - 08/15/2018 9:00 AM EST Images from [...] K+ 4.6 today 6. Post-op atrial fibrillation [id number] (CHF, HTN, DM, vascular disease, thromboembolism) [...] Dolan MD [facility] [address] [place] [address] (Wo rk) 05/28/2022 Laboratory Appointment Lab 05/28/2022 Office Visit Cardiology Zulma Dolan MD [facility] [place] [address] Liz Poole PA [facility] [place] [address] 06/10/2022 Office Visit Dermatology Laura Scherer MD [facility] ER DR [address]-DERMAT [place], [place] [address] (Wo rk) documented as of this encounter Results Lipid Panel (08/15/2018 8:04 AM EST) athologist Signature Chol, Total 75 mg/dL [facility] Comment: Lower Risk: <200 mg/dL Average Risk: 200-239 mg/dL Higher Risk: >jc=516 mg/dL Triglycerides 185 mg/dL [facility] Comment: Average Risk/Lower Risk: <150 mg/dL Borderline High Risk: 150-199 mg/dL High Risk: 200-499 mg/dL Very High Risk: >mg=376 mg/dL HDL 32 mg/dL [facility] Comment: Males: ?? Higher Risk: <40 mg/dL Females: ?? HIgher Risk: <50 mg/dL LDL Cholesterol 6 mg/dL [facility] Comment: Lowest Risk: <100 mg/dL Lower Risk: 100-129 mg/dL Borderline High Risk: 130-159 mg/dL High Risk: 160-189 mg/dL Very High Risk: >jz=468 mg/dL Chol/HDL Ratio 2.3 ratio [facility] Lipid Interpretation See Note [facility] Comment: Lipid management should be guided by a p atient? s ASCVD risk, goals and preferences. ACC/AHA Guidelines recommend high intens ity statin if clinical ASCVD or LDL greater than or equal to 190 mg/dL. http://Pulmocideurl.com/SEF-NRG-Kfyfussnp Adults aged 40-75 with LDL 70-189 mg/dL should have their 10 year ASCVD risk estimated with the ACC/AHA ASCVD risk es timator http://tools.acc.org/YNNJZ-Vfce-Yegbmtiu r/ Statin should be discussed if risk [...] Organization Address City/State/[place] [address] (ABNORMAL) Basic Metabolic Panel (non-fasting) (08/15/2018 8:04 AM EST) P athologist Signature Glucose Lvl 116 65 - 199 [facility] mg/dL [facility] [...] of body mass or the acutely ill. [email or web address] eGFR 79 >=60 mL/min/1.73 m?? [facility] Comment: The eGFR was calculated using the CKD-EP I equation. As with all creatinine based estimates of kidney function, eGFR values calculated with the CKD-EPI equation are not accurate in patients wi th acute kidney failure, extremes of body mass or the acutely ill. [email or web address] Specimen Anatomical Collection Method Collection Time Receive d Time (Source) Location / / Volume Laterality Blood specimen 08/15/2018 8:04 AM 019 8:20 (specimen) EST AM EST Resulting Agency Comment Spec In Lab Danette Maxwell APRN CHEMISTRY ORDERABLES Performing Organization Address City/State/ZIP Code Phon e Number [address] (ABNORMAL) pro-Brain Natriuretic Peptide (08/15/2018 8:04 AM EST) P athologist Signature ProBNP 1,797 (H) <=125 [facility] pg[facility] Specimen Anatomical Collection Method Collection Time Receive d Time (Source) Location / / Volume Laterality Blood specimen 08/15/2018 8:04 AM 019 8:20 (specimen) EST AM EST Resulting Agency Comment Spec In Lab Danette Maxwell APRN CHEMISTRY ORDERABLES Performing Organization Address City/State/[place] [address] documented in this encounter Visit Diagnoses Diagnosis Chronic systolic heart failure Cardiomyopathy, ischemic Other specified forms of chronic ischemi c heart disease ASCVD (arteriosclerotic cardiovascular d isease) Unspecified cardiovascular disease Essential hypertension Unspecified essential hypertension MARIA VICTORIA on CPAP Obstructive sleep apnea (adult) (pediatr ic) documented in this encounter Care Teams Irrigation District Manager Relationship Specialty Start Date End Date Lovely Vicente MD PCP - General 04/16/15 [address] [place] [address] documented as of this encounter
--- OUTSIDE RECORDS SUMMARY | 2022-05-20 09:33 | XMS_ITS | Encounter Summary ---
:1945 Author Organization [facility] [place] [address] Care Team Providers Name Role Phone Lovely Vicente MD Primary Care Provider Encounter Details Date Type Department Care Team Description 10/07/2017 Laboratory Appointment Lab 3L [facility] [place] [id number] Social History Tobacco Use Types Packs/Day Years [...] MD [facility] er [place], [place] [address] (Wo rk) 05/28/2022 Laboratory Appointment Lab 05/28/2022 Office Visit Cardiology Zulma Dolan MD [facility] [place] [address] Liz Poole PA [facility] [place] [address] 06/10/2022 Office Visit Dermatology Laura Scherer MD [facility] ER DR TEJA GR-DERMAT ENIDReal [facility] [place] Amy (Wo rk) documented as of [...] Signature Glucose Lvl 99 65 - 199 [facility] mg/dL [facility] Comment: Diabetes: [...] or in patients with acute kidney failure. http://TargeGen.ExploraMed/DHnkdep http://TargeGen.ExploraMed/DHMCnkf Specimen Anatomical Collection Method Collection Time Receive d Time (Source) Location / / Volume Laterality Blood specimen 10/07/2017 8:48 AM 018 8:50 (specimen) EDT AM EDT Resulting Agency Comment Spec In Lab Danette Maxwell HAT COPYIST CHEMISTRY ORDERABLES Performing Organization Address City/[facility]/ZIP Code Phon e Number [address] (ABNORMAL) pro-Brain Natriuretic Peptide (10/07/2017 8:48 AM EDT) athologist Signature ProBNP 1,170 (H) <=125 [facility] pg/mL [facility] Specimen Anatomical Collection Method Collection Time Receive d Time (Source) Location / / Volume Laterality Blood specimen 10/07/2017 8:48 AM 018 8:50 (specimen) EDT AM EDT Resulting Agency Comment Spec In Lab Danette A Hans QUINONES CHEMISTRY ORDERABLES Performing Organization Address City/State/[place] [address] documented in this encounter Visit Diagnoses Diagnosis Chronic systolic heart failure documented in this encounter Care Teams Associate Professor Of Radiology Relationship Specialty Start Date End Date Lovely Vicente MD PCP - General 04/16/[address] [place] [address] documented as of this encounter
--- OUTSIDE RECORDS SUMMARY | 2022-05-20 09:33 | XMS_ITS | Encounter Summary ---
:1945 Author Organization [facility] [place] [address] Care Team Providers Name Role Phone Lovely Vicente MD Primary Care Provider Reason for Visit Reason Comments Establish Care Atrial Fibrillation Congestive Heart Failure Cardiomyopathy Encounter Details Date Type Department Care Team Description 09/06/2019 [facility] Osvaldo STRANGE [address] [place], [place] CARDIOLOGY DEPT. [address] [place] [address] [phone] Social History Tobacco Use Types Packs/Day Years [...] today For any questions, call my office: [phone] To access your health care information, go to the web at: [email or web address] (you will need to register) For educational materials: http://patients.[email or web address].org/health_information.html Karel TRAMMELL.[facility], Clinical Cardiac Electrophysiology, [facility], [facility] A Healthy [...] least 2 servings of fish a week. [place], mackerel, mcfadden, sardines, and chunk light tuna [...] irregular heartbeat. After you call 911, the fur machine operator may tell you to chew [...] more? Visit our health information library at [email or web address] [email or web address]/[email or web address]. You can also view health information on [employer], your personal patient account. Log in or sign up today. Enter F075 in the search box to learn more about A Healthy Heart: After Your Visit. ?? [phone] [employer] documented in this encounter Progress Notes Karel Mcelroy MD - 09/06/2019 2:20 PM EST Images from the original note were not included. Section of Cardiology/Cardiac Electrophysiology [facility] Clinical Cardiac Electrophysiology Consult Patient ID Don Fatima 1945 [id number] Don Fatima is referred to the EP clinic by Danette Maxwell APRN PhD Chief Complaint Dyspnea on exertion Ischemic cardiomyopathy History This is a 74 y.o. male following up/being seen in clinic for evaluation for ongoing anticoagulation. He has a Mlneq6Gmyb score of ~ 6-7. 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, can [...] on phone: None Gets together: None Attends uatsdin service: None Active member of club or [...] reviewed the ECG: sinus rhythm, 72 bpm, KS 140 ms, QRS 100 ms, QT 400 [...] EP clinic KAREL MCELROY MD Cardiac Electrophysiology [facility] T: [phone] F: [phone] 35 minutes of this 40 minute encounter were spent in counselling, as described above Cc: MD Danette Cr APRN PhD Janett Espino DPM documented in this encounter Plan of Treatment Upcoming Encounters Date Type Specialty Care Team Description 05/28/2022 Appointment Cardiology Zulma Dolan MD [facility] [place], [place] [address] (Wo rk) 05/28/2022 Laboratory Appointment Lab 05/28/2022 Office Visit Cardiology Zulma Dolan MD [facility] [place] [address] Liz Poole PA [facility] [place] [address] 06/10/2022 Office Visit Dermatology Laura Scherer MD [facility] [address]-DERMAT OGY [place], [place] [address] (Wo rk) documented [...] 446 ms MUSE SYSTEM (Bezet) Calculated P [place] 37 degrees MUSE SYSTEM Calculated R [place] -23 degrees MUSE SYSTEM Calculated T [place] 116 degrees MUSE SYSTEM INTERPRETATION Normal sinus rhythm MUSE SYSTEM Inferior infarct (cited on or before 25-JAN-2013) ST & T wave abnormality, consider anterolateral ischemia Abnormal ECG When compared with ECG of 19-AUG-2017 10:23, No significant change was found Confirmed by MD Cande, Michael ([id number]) on 09/08/2019 10:22:4 7 AM Specimen Anatomical [...] disease documented in this encounter Care Teams Ceramic Saw Tender Relationship Specialty Start Date End Date Lovely Vicente MD PCP - General 04/16/[address] [place] [address] documented as of this encounter
--- OUTSIDE RECORDS SUMMARY | 2022-05-20 09:33 | XMS_ITS | Encounter Summary ---
:1945 Author Organization [facility] [address] Care Team Providers Name Role Phone Lovely Vicente MD Primary Care Provider Reason for Referral Diagnostic Test (Routine) - Specialty Diagnoses / Procedures Referred By Contact Refer red To Contact Cardiology Diagnoses Chronic systolic heart failure Danette Maxwell APRN [facility] Non-Inv Card Lab Procedures Echocardiogram Transthoracic(Leb) [facility] [place] [phone] [place] [address] Referral ID Status Reason Start Date Expiration Visits Visits Date Requested Authorized [id number] Specialty 08/15/2018 08/15/2018 1 1 Service Requested Reason for Visit Diagnostic Test (Routine) - Specialty Diagnoses / Procedures Referred By Contact Nawaf owen To Contact Cardiology Diagnoses Chronic systolic heart failure Danette Maxwell APRN [facility] Non-Inv Card Lab Procedures Echocardiogram Transthoracic(Leb) [facility] [place] [address] [place] [address] Referral ID Status Reason Start Date Expiration Visits Visits Date Requested Authorized [id number] Specialty 08/15/2018 08/15/2018 1 1 Service Requested Encounter Details Date Type Department Care Team Description 08/15/2018 Hospital Encounter Non-Invasive Danette Maxwell Chron ic systolic Cardiology Lab Barbara Gomes APRN heart failure [facility] [place] [address] [place] [phone] [address] (Work) [phone] Social History Tobacco Use Types Packs/Day Years [...] Zulma Dolan MD [facility] [place], [place] [address] (Wo rk) 05/28/2022 Laboratory Appointment Lab 05/28/2022 Office Visit Cardiology Zulma Dolan MD [facility] [place] [address] Liz Poole PA [facility] [place] [address] 06/10/2022 Office Visit Dermatology Laura Scherer MD [facility] DR TEJA GR-DERMAT [place], [place] [address] (Wo rk) documented as of [...] Mccollum ? (Age): 1945(73y) Med Rec#: ? [id number] ?Sex: ?M ? Site Loc: ? [facility] ?Ht / Wt: ??172(cm)/81(kg) Pt. Loc: ?Echo Lab ?BSA: ?1.94 Study Date: ?? 08/15/2018 ?Pt. Type: Outpatient Tape: ? Referring: MARY ELLEN Reading: Scott Ortega ([id number]) Furniture Duster: Laura Sargent Diagnosis: *Chronic systolic (congestive) heart [...] E-wave Vmax ?1.2 ?m/sec ? MV deceleration bnwa162.4 ? msec ? MV A-wave Vmax ?0.7 [...] ? Mid-Inferior ?Hypokinetic ? Mid-Inferoseptal ?Hypokinetic ? [place]-Septal ? Akinetic ? [place]-Anterior ? Hypokinetic ? [place]-Lateral ?Akinetic ? [place]-Inferior ? Hypokinetic ? [place]-Tip ?Akinetic ? This report has been electronically sign ed by: _ Scott Ortega M.D. ? 08/15/2018 08:17:26 Images reviewed and interpretation ver ied [facility] Cardiac Ultrasound Laboratory Procedure Note Scott Ortega MD - 08/15/2018Format ting of this note might be different from the original. Procedure: Transthoracic Echocardiogram Patient: NATALYA MCBRIDE(Age): [birth year]73y) Med Rec#: [id number] Sex: M Site Loc: [facility] Ht / Wt: 172(cm)/81(kg) Pt. Loc: Echo Lab BSA: 1.94 Study Date: 08/15/2018 Pt. Type: Outpati ent Tape: Referring: MARY ELLEN Reading: Scott Ortega ([id number]) Furniture Duster: Laura Sargent Diagnosis: *Chronic systolic (congestive) heart [...] MV E-wave Vmax 1.2 m/sec MV deceleration byfr888.4 msec MV A-wave Vmax 0.7 m/sec MV [...] Akinetic Mid-Posterolateral Akinetic Mid-Inferior Hypokinetic Mid-Inferoseptal Hypokinetic [place]-Septal Akinetic [place]-Anterior Hypokinetic [place]-Lateral Akinetic [place]-Inferior Hypokinetic [place]-Tip Akinetic This report has been electronically sign ed by: _ Scott Ortega M.D. 08/15/2018 08:17: 26 Images reviewed and interpretation verif ied [facility] Cardiac Ultrasound Laboratory Danette A Hans CCIE ECHO ORDERABLES documented in this encounter Visit [...] Routine documented in this encounter Care Teams Channel Sales Director Relationship Specialty Start Date End Date Lovely Vicente MD PCP - General 04/16/[address] [place] [address] documented as of this encounter
--- OUTSIDE RECORDS SUMMARY | 2022-05-20 09:33 | XMS_ITS | Encounter Summary ---
:1945 Author Organization [facility] [place] [address] Care Team Providers Name Role Phone Lovely Vicente MD Primary Care Provider Encounter Details Date Type Department Care Team Description 09/16/2017 [place] [address] Social History Tobacco Use Types Packs/Day [...] Zulma Dolan MD [facility] [place], [place] [address] (Wo rk) 05/28/2022 Laboratory Appointment Lab 05/28/2022 Office Visit Cardiology Zulma Dolan MD [facility] [place] [place] [address] Liz Poole PA [facility] [place] [address] 06/10/2022 Office Visit Dermatology Laura Scherer MD [facility] DR TEJA GR-DERMAT [place]LOG[place], [place] 0[address] (Wo rk) documented as of this encounter Procedures Procedure Name Priority Date/Time Associated Diagnosis Comme [facility] SURGICAL PATHOLOGY Routine 09/16/2017 7:28 AM Res ults for this REPORT EST procedure are i n the results section. documented in this encounter Results Surgical Pathology Report (09/16/2017 7:28 AM EST) Component Value Ref Test Analysis Performed At [facility] Method Time Signature Surgical [id number] ? Location: [facility] Pathology [place] Report The signing pathologist has (i) examined [...] Henrique Flower Verified: ??09/24/2017 ?Pathologist Performed at: ??-[facility] Dept. of Pathology, [place], [place] CLINICAL INFORMATION Specimen Submitted: A - [...] Organization Address City/State/[place] [address] documented in this encounter Visit Diagnoses Not on filedocumented in this encounter Care Teams Airplane Mechanic Relationship Specialty Start Date End Date Lovely Vicente MD PCP - General 04/16/[address] [place] [address] documented as of this encounter
--- OUTSIDE RECORDS SUMMARY | 2022-05-20 09:33 | XMS_ITS | Encounter Summary ---
:1945 Author Organization [facility] [place] [address] Care Team Providers Name Role Phone Lovely Vicente MD Primary Care Provider Encounter Details Date Type Department Care Team Description 07/28/2019 Laboratory Appointment Lab 3L [facility] [place] [id number] Social History Tobacco Use Types Packs/Day Years [...] MD [facility] er [place], [place] [address] (Wo rk) 05/28/2022 Laboratory Appointment Lab 05/28/2022 Office Visit Cardiology Zulma Dolan MD [facility] [place] [address] Liz Poole PA [facility] [place] [address] 06/10/2022 Office Visit Dermatology Laura Scherer MD [facility] DR TE[address] GR[address]DERMAT [place] [address] (Wo rk) documented as of this encounter [...] Organization Address City/State/Z[place] [address] (ABNORMAL) Basic Metabolic Panel (non-fasting) (07/28/2019 8:36 AM EST) athologist Signature Glucose Lvl 153 65 - 199 [facility] mg/dL [facility] LABOR[facility] [...] of body mass or the acutely ill. http://Watertronix/peerTransfernkf eGFR 81 >=60 mL/min/1.73 m?? [facility] Comment: The eGFR was calculated using the CKD-EP I equation. As with all creatinine based estimates of kidney function, eGFR values calculated with the CKD-EPI equation are not accurate in patients wi th acute kidney failure, extremes of body mass or the acutely ill. http://Watertronix/[facility] – TULSAnkf Specimen Anatomical Collection Method Collection Time Receive d Time (Source) Location / / Volume Laterality Blood specimen 07/28/2019 8:36 AM 020 8:46 (specimen) EST AM EST Resulting Agency Comment Spec In Lab Danette Maxwell APRN CHEMISTRY ORDERABLES Performing Organization Address City/State/ZIP [place] [address] documented in this encounter Visit Diagnoses Diagnosis Chronic systolic heart failure documented in this encounter Care Teams Electrician Locomotive Relationship Specialty Start Date End Date Lovely Vicente MD PCP - General 04/16/[address] [place] [address] documented as of this encounter
--- OUTSIDE RECORDS SUMMARY | 2022-05-20 09:33 | XMS_ITS | Encounter Summary ---
:1945 Author Organization [facility] [place] [address] Care Team Providers Name Role Phone Lovely Vicente MD Primary Care Provider Encounter Details Date Type Department Care Team Description 08/15/2018 Laboratory Lab 3L [place] Chronic systoli c heart failure; Appointment [facility] ASCVD (ar teriosclerotic cardiovascular disease) [place] [address] Social History Tobacco Use Types [...] MD [facility] er [place] [address] (Wo rk) 05/28/2022 Laboratory Appointment Lab 05/28/2022 Office Visit Cardiology Zulma Dolan MD [facility] [place] [address] Liz Poole PA [facility] [place] [address] 06/10/2022 Office Visit Dermatology Laura Scherer MD [facility] DR TEJA GR-DERMAT [place], [place] 0[address] (Wo rk) documented as [...] 199 [facility] mg/dL [facility] [...] of body mass or the acutely ill. http://Aventura/[facility] – STILWELLnkf eGFR 79 >=60 mL/min/1.73 m?? [facility] Comment: The eGFR was calculated using the CKD-EP I equation. As with all creatinine based estimates of kidney function, eGFR values calculated with the CKD-EPI equation are not accurate in patients wi th acute kidney failure, extremes of body mass or the acutely ill. http://Aventura/[facility] STILWELLnkf Specimen Anatomical Collection Method Collection Time Receive d Time (Source) Location / / Volume Laterality Blood specimen 08/15/2018 8:04 AM 019 8:20 (specimen) EST AM EST Resulting Agency Comment Spec In Lab Danette Maxwell APRN CHEMISTRY ORDERABLES Performing Organization Address City/State/[place] [address] Lipid Panel (08/15/2018 8:04 AM EST) P athologist Signature Chol, Total 75 mg/dL [facility] Comment: Lower Risk: <200 mg/dL Average Risk: 200-239 mg/dL Higher Risk: >wc=169 mg/dL Triglycerides 185 mg/dL [facility] Comment: Average Risk/Lower Risk: <150 mg/dL Borderline High Risk: 150-199 mg/dL High Risk: 200-499 mg/dL Very High Risk: >ng=347 mg/dL HDL 32 mg/dL [facility] Comment: Males: ?? Higher Risk: <40 mg/dL Females: ?? HIgher Risk: <50 mg/dL LDL Cholesterol 6 mg/dL [facility] Comment: Lowest Risk: <100 mg/dL Lower Risk: 100-129 mg/dL Borderline High Risk: 130-159 mg/dL High Risk: 160-189 mg/dL Very High Risk: >np=979 mg/dL Chol/HDL Ratio 2.3 ratio [facility] Lipid Interpretation See Note [facility] Comment: Lipid management should be guided by a p atient? s ASCVD risk, goals and preferences. ACC/AHA Guidelines recommend high intens ity statin if clinical ASCVD or LDL greater than or equal to 190 mg/dL. http://Riot Games.com/KGZ-YFK-Mtfgpmern Adults aged 40-75 with LDL 70-189 mg/dL should have their 10 year ASCVD risk estimated with the ACC/AHA ASCVD risk es timator http://tools.acc.org/NFKYI-Pxuf-Eegadchm r/ Statin should be discussed if risk [...] Organization Address City/State/[place] [address] (ABNORMAL) pro-Brain Natriuretic Peptide (08/15/2018 8:04 AM EST) athologist Signature ProBNP 1,797 (H) <=125 [facility] Specimen Anatomical Collection Method Collection Time Receive d Time (Source) Location / / Volume Laterality Blood specimen 08/15/2018 8:04 AM 019 8:20 (specimen) EST AM EST Resulting Agency Comment Spec In Lab Danette Maxwell APRN CHEMISTRY ORDERABLES Performing Organization Address City/State/[place] [address] documented in this encounter Visit Diagnoses Diagnosis Chronic systolic heart failure ASCVD (arteriosclerotic cardiovascular d isease) Unspecified cardiovascular disease documented in this encounter Care Teams Paraffin Plant Operator Relationship Specialty Start Date End Date Lovely Vicente MD PCP - General 04/16/[address] [place] [address] documented as of this encounter
--- OUTSIDE RECORDS SUMMARY | 2022-05-20 09:33 | XMS_ITS | Encounter Summary ---
:1945 Author Organization [facility] [place] [address] Care Team Providers Name Role Phone Lovely Vicente MD Primary Care Provider Encounter Details Date Type Department Care Team Description 10/05/2017 Telephone Cardiology at [facility] Tamiko Sin MD [facility] [place] [address] CARDIOLOGY DEPT [phone] [place], [place] 0[address] (Wo rk) Social History Tobacco [...] Dolan MD [facility] er [address] [place] [address] (Wo rk) 05/28/2022 Laboratory Appointment Lab 05/28/2022 Office Visit Cardiology Zulma Dolan MD [facility] [place] [address] Liz Poole PA [facility] [place] [address] 06/10/2022 Office Visit Dermatology Laura Scherer MD [facility] ER DR TEJA GR-DERMAT [place], [place] 0[address] (Wo rk) documented as of this encounter Visit Diagnoses Not on filedocumented in this encounter Care Teams Sales Analyst Relationship Specialty Start Date End Date Lovely Vicente MD PCP - General 04/16/[address] [place] [address] documented as of this encounter
--- OUTSIDE RECORDS SUMMARY | 2022-05-20 09:33 | XMS_ITS | Encounter Summary ---
:1945 [place] [address] Care Team Providers Name Role Phone Lovely Vicente MD Primary Care Provider Encounter Details Date Type Department Care Team Description 11/29/2017 Hospital Encounter Radiology Library at [facility] Maxwell Pain [facility] FACILITIES AND GROUNDS DIRECTOR [facility] [place] [address] CARDIOLOGY [phone] [place], [place] [address] (Wo rk) Social History [...] Cardiology Zulma Dolan MD [facility] [place], [place] [address] (Wo rk) 05/28/2022 Laboratory Appointment Lab 05/28/2022 Office Visit Cardiology Zulma Dolan MD [facility] [place] [address] Liz Poole PA [facility] [place] [address] 06/10/2022 Office Visit Dermatology Laura Scherer MD [facility] DR [address]-DERMAT [place]LOG[place], [place] [address] (Wo rk) documented as [...] Address City/State/ZIP Code Phon e Number [place], [place] documented in this encounter Visit Diagnoses Diagnosis Pain Generalized pain documented in this encounter Care Teams Web Site Developer Relationship Specialty Start Date End Date Lovely Vicente MD PCP - General 04/16/[address] [place] [address] documented as of this encounter
--- OUTSIDE RECORDS SUMMARY | 2022-05-20 09:33 | XMS_ITS | Encounter Summary ---
:1945 Author Organization [facility] Address [facility] [place] [address] Care Team Providers Name Role Phone Lovely Vicente MD Primary Care Provider Encounter Details Date Type Department Care Team Description 10/07/2017 Office Visit Cardiology at [facility] Danette Maxwell Chronic systolic heart failu re; [facility] A, GLOBAL PROGRAM DIRECTOR S/P CABG x 3; Drive [facility] On amiodarone therapy; [place], [place] Atrial fibrillation, unspecified type; [phone] CARDIOLOGY ASCVD (arteriosclerotic cardiovascular d isease) [phone] [place], [place] [address] Social History Tobacco Use Types [...] - documented in this encounter Progress Notes Orlando Danette A, GLOBAL PROGRAM DIRECTOR - 10/07/2017 11:20 AM EDT ID and [...] painful and swollen right foot right d/t KEELER POLYGRAPH 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 Espino On IV antibiotics at [facility] Today: Mr. Fatima is [...] continue to see Dr. Bains well at [facility] and follow his wound on his right lower extremity. And she will continue to direct antibiotic treatment. Ihave asked that the echocardiogram results be faxed to Dr. Zurita at [facility]. 1. ASCVD Continue ASA, [...] bone removal by Dr. Aguero at [facility]. Currently receiving IV antibiotics at [facility] ? Plan: 1. A [...] Zulma Dolan MD [facility] [address] [place], [place] [address] (Wo rk) 05/28/2022 Laboratory Appointment Lab 05/28/2022 Office Visit Cardiology Zulma Dolan MD [facility] [place] [address] Liz Poole PA [facility] [place] [address] 06/10/2022 Office Visit Dermatology Laura Scherer MD [facility] [address] [place], [place] [address] (Wo rk) documented as of this encounter Results (ABNORMAL) Basic Metabolic Panel (non-fasting) (10/07/2017 8:48 AM EDT) athologist Signature Glucose Lvl 99 65 - 199 [facility] mg/dL [facility] Comment: [...] [facility] Estimated GFR >60 >=60 [facility] Comment: The reported eGFR should be multiplied b y 1.2 for patients. The MDRD is not an appropriate measure o f renal function for patients with body mass extremes or in patients with acute kidney failure. http://[employer].Advasense/DHnkdep http://Graveyard Pizza/DHMCnkf Specimen Anatomical Collection Method Collection Time Receive d Time (Source) Location / / Volume Laterality Blood specimen 10/07/2017 8:48 AM 018 8:50 (specimen) EDT AM EDT Resulting Agency Comment Spec In Lab Danette Maxwell APRN CHEMISTRY ORDERABLES Performing Organization Address City/State/[place] [address] (ABNORMAL) pro-Brain Natriuretic Peptide (10/07/2017 8:48 AM EDT) P athologist Signature ProBNP 1,170 (H) <=125 [facility] pg/mL [facility] Specimen Anatomical Collection Method Collection Time Receive d Time (Source) Location / / Volume Laterality Blood specimen 10/07/2017 8:48 AM 018 8:50 (specimen) EDT AM EDT Resulting Agency Comment Spec In Lab Danette Maxwell APRN CHEMISTRY ORDERABLES Performing Organization Address City/State/[place] [address] documented in this encounter [...] General 04/16/[address] [place] [address] documented as of this encounter
--- OUTSIDE RECORDS SUMMARY | 2022-05-20 09:33 | XMS_ITS | Encounter Summary ---
:1945 Author Organization [facility] [place] [address] Care Team Providers Name Role Phone Lovely Vicente MD Primary Care Provider Encounter Details Date Type Department Care Team Description 02/19/2020 Telephone Dermatology at [facility] Ariana Wilder LPN [address] [place] [address] Social History Tobacco Use Types Packs/Day [...] Dolan MD [facility] [place], [place] [address] (Wo rk) 05/28/2022 Laboratory Appointment Lab 05/28/2022 Office Visit Cardiology Zulma Dolan MD [facility] [place] [address] [facility] [place] [address] 06/10/2022 Office Visit Dermatology Laura Scherer MD [facility] [address] [place], [place] [address] (Wo rk) documented as of this encounter Visit Diagnoses Not on filedocumented in this encounter Care Teams Wildland Fire Operations Specialist Relationship Specialty Start Date End Date Lovely Vicente MD PCP - General 04/16/[address] [place] [address] documented as of this encounter
--- OUTSIDE RECORDS SUMMARY | 2022-05-20 09:33 | XMS_ITS | Encounter Summary ---
:1945 Author Organization [facility] [place] [address] Care Team Providers Name Role Phone Lovely Vicente MD Primary Care Provider Encounter Details Date Type Department Care Team Description 11/07/2019 TH Visit Cardiology at [facility] Danette Maxwell (arteriosclerotic heart disease); (TeleHealth) [facility] STACIE Gomes Cardiomyopathy, ischemic; Drive [facility] S/P CABG x 3; [place], [place] MARIA VICTORIA (obstructive sleep apnea) on CPAP [phone] CARDIOLOGY [phone] [place], [place] [address] Social History Tobacco Use Types [...] regurgitation present. 07/07/2019 - 07/21/2019 Zio Patch Reclamation Kettle Tender The patient had a minimum heart [...] at last check 6. Post-op atrial fibrillation [id number] (CHF, HTN, DM, vascular disease, thromboembolism) Amiodarone discontinued Continue coumadin INR managed by PCP 7. PAD 08/06/2017: Right 1st, 2nd, 3rd toe amputation 08/11/2017: Left??femoral arterial access, RLE??angiogram, Balloon angioplasty of R PT with Eleazar 2.5 x 80 10/25/2017: right popliteal-pedal bypass at [facility] Continue Coumadin 8. Hypothyrodism S/p thyroidectomy [...] Cardiology Zulma Dolan MD [facility] [place], [place] [address] (Wo rk) 05/28/2022 Laboratory Appointment Lab 05/28/2022 Office Visit Cardiology Zulma Dolan MD [facility] [place] [address] Liz Poole PA [facility] [place] [address] 06/10/2022 Office Visit Dermatology Laura Scherer MD [facility] DR [address] [place], [place] [address] (Wo rk) documented as of this encounter Visit Diagnoses Diagnosis ASHD (arteriosclerotic heart disease) Coronary atherosclerosis of unspecified type of vessel, [place] or graft Cardiomyopathy, ischemic Other specified forms of chronic ischemi c heart disease S/P CABG x 3 Postsurgical aortocoronary bypass status MARIA VICTORIA (obstructive sleep apnea) on CPAP Obstructive sleep apnea (adult) (pediatr ic) documented in this encounter Care Teams Manager Oracle Relationship Specialty Start Date End Date Lovely Vicente MD PCP - General 04/16/[address] [place], [place] [address] documented as of this encounter
--- OUTSIDE RECORDS SUMMARY | 2022-05-20 09:33 | XMS_ITS | Encounter Summary ---
:1945 Author Organization [facility] [place] [address] Care Team Providers Name Role Phone Lovely Vicente MD Primary Care Provider Encounter Details Date Type Department Care Team Description 04/18/2018 Laboratory Appointment Lab 3L [facility] [place] [id number] Social History Tobacco Use Types Packs/Day Years [...] Dolan MD [facility] er [place], [place] [address] (Wo rk) 05/28/2022 Laboratory Appointment Lab 05/28/2022 Office Visit Cardiology Zulma Dolan MD [facility] [place] [address] Liz Poole PA [facility] [place] [address] 06/10/2022 Office Visit Dermatology Laura Scherer MD [facility] ER [address] [place], [place] [address] (Wo rk) documented as of [...] Protein 7.6 6.1 - 8.0 [facility] gm/dL [facility] Albumin 4.0 3.2 - 5.2 [facility] gm/dL [facility] AST 36 0 - 39 [facility] unit/L [facility] ALT 27 0 - 55 [place] [facility] unit/L [facility] Alk Phos 96 40 - 120 [facility] unit/L [facility] Total 0.7 0.2 - 1.3 [place]INA frenting Bilirubin mg/dL [facility] Bili, Direct 0.1 0.0 - 0.3 [facility] mg/dL [facility] Specimen Anatomical Collection Method Collection Time Receive d Time (Source) Location / / Volume Laterality Blood specimen Venous Draw / 04/18/2018 9:19 AM 2017 9:44 (specimen) Unknown EDT AM EDT Resulting Agency Comment Spec In Lab Danette Maxwell APRN CHEMISTRY ORDERABLES Performing Organization Address City/State/[place] [address] TSH (04/18/2018 9:19 AM EDT) athologist Signature TSH 1.77 0.27 - 4.20 [facility] mlU/ML [facility] Specimen Anatomical Collection Method Collection Time Receive d Time (Source) Location / / Volume Laterality Blood specimen Venous Draw / 04/18/2018 9:19 AM 2017 9:44 (specimen) Unknown EDT AM EDT Resulting Agency Comment Spec In Lab Danette Maxwell APRN CHEMISTRY ORDERABLES Performing Organization Address City/State/[place] [address] (ABNORMAL) Basic Metabolic Panel (non-fasting) (04/18/2018 9:19 AM EDT) athologist Signature Glucose Lvl 167 65 - 199 [facility] mg/dL [facility] [...] of body mass or the acutely ill. http://Storybricks/DHMCnkf eGFR 70 >=60 mL/min/1.73 m?? [facility] Comment: The eGFR was calculated using the CKD-EP I equation. As with all creatinine based estimates of kidney function, eGFR values calculated with the CKD-EPI equation are not accurate in patients wi th acute kidney failure, extremes of body mass or the acutely ill. http://Storyb[employer]/DHnkf Specimen Anatomical Collection Method Collection Time Receive d Time (Source) Location / / Volume Laterality Blood specimen 04/18/2018 9:19 AM 018 9:34 (specimen) EDT AM EDT Resulting Agency Comment Spec In Lab Danette Maxwell APRN CHEMISTRY ORDERABLES Performing Organization Address City/[facility]/[place] [address] (ABNORMAL) pro-Brain Natriuretic Peptide (04/18/2018 9:19 AM EDT) P athologist Signature ProBNP 2,199 (H) <=125 [facility] pg/mL [facility] Specimen Anatomical Collection Method Collection Time Receive d Time (Source) Location / / Volume Laterality Blood specimen 04/18/2018 9:19 AM 018 9:34 (specimen) EDT AM EDT Resulting Agency Comment Spec In Lab Danette Maxwell APRN CHEMISTRY ORDERABLES Performing Organization Address City/[facility]/[place] [address] documented in this encounter Visit Diagnoses Diagnosis Chronic systolic heart failure documented in this encounter Care Teams Bakery Pastry Internship Relationship Specialty Start Date End Date Lovely Vicente MD PCP - General 04/16/[address] [place] [address] documented as of this encounter
--- OUTSIDE RECORDS SUMMARY | 2022-05-20 09:33 | XMS_ITS | Encounter Summary ---
:1945 Author Organization [facility] [place] [address] Care Team Providers Name Role Phone Lovely Vicente MD Primary Care Provider Reason for Referral Diagnostic Test (Routine) - Closed Specialty Diagnoses / Procedures Referred By Contact Refer red To Contact Cardiology Diagnoses Ischemic cardiomyopathy Acute on chronic systolic congestive heart failure Danette Maxwell APRN [facility] Non-Inv Card Lab Procedures Echocardiogram Transthoracic(Leb) [facility] [place] [address] [place] [address] Referral ID Status Reason Start Date Expiration Date Visits V isits Requested Authorized [id number] Closed Specialty 08/30/2017 08/30/2018 1 1 Service Requested Reason for Visit Diagnostic Test (Routine) - Closed Specialty Diagnoses / Procedures Referred By Contact Refer red To Contact Cardiology Diagnoses Ischemic cardiomyopathy Acute on chronic systolic congestive heart failure Danette Maxwell APRN [facility] Non-Inv Card Lab Procedures Echocardiogram Transthoracic(Leb) [facility] [place] [address] [place] [address] Referral ID Status Reason Start Date Expiration Date Visits V isits Requested Authorized [id number] Closed Specialty 08/30/2017 08/30/2018 1 1 Service Requested Encounter Details Date Type Department Care Team Description 10/07/2017 Hospital Encounter Non-Invasive Ischemic cardiomyopathy; Cardiology Lab Barbara Craig on chronic systolic [place] [address] Social History Tobacco Use Types Packs/Day [...] Description 05/28/2022 Appointment Cardiology Zulma Dolan MD [facility] Medical [facility] [address] [place], [place] [address] (Wo rk) 05/28/2022 Laboratory Appointment Lab 05/28/2022 Office Visit Cardiology Zulma Dolan MD [facility] [place] [address] Liz Poole PA [facility] [place] [address] 06/10/2022 Office Visit Dermatology Laura Scherer MD [facility] DR [address] [place], [place] [address] (Wo rk) documented as [...] Mccollum ? (Age): 1945(72y) Med Rec#: ? [id number] ?Sex: ?M ? Site Loc: ? [facility] ?Ht / Wt: ??173(cm)/82(kg) Pt. Loc: ?Echo Lab ?BSA: ?1.96 Study Date: ?? 10/07/2017 ?Pt. Type: Outpatient Tape: ? Referring: Danette Maxwell Reading: Iker Cuevas ([id number]) Sander Hand: Yonathan Bocanegra Diagnosis: *ICD-10-PCS Ischemic cardiomyopathy (I2 [...] E-wave Vmax ?1.2 ?m/sec ? MV deceleration [id number] ?msec ? MV A-wave Vmax ?1 ?m/sec [...] Mid-Inferior ?Hypokinetic ? Mid-Inferoseptal ?Hypokinetic ? [place]-Septal ? Akinetic ? [place]-Anterior ? Hypokinetic ? [place]-Lateral ?Hypokinetic ? [place]-Inferior ? Hypokinetic ? [place]-Tip ?Akinetic ? This report has been electronically sign ed by: _ Iker Cuevas M.D. ? 10/07/2017 11:12:34 Images reviewed and interpretation verif ied [facility] Cardiac Ultrasound Laboratory Procedure Note Iker Cuevas MD - 10/07/2017Formatti ng of this note might be different from the original. Procedure: Transthoracic Echocardiogram Patient: NATALYA MCBRIDE(Age): [birth year]72y) Med Rec#: [id number] Sex: M Site Loc: [facility] Ht / Wt: 173(cm)/82(kg) Pt. Loc: Echo Lab BSA: 1.96 Study Date: 10/07/2017 Pt. Type: Outpati ent Tape: Referring: Danette Maxwell Reading: Iker Cuevas ([id number]) Sander Hand: Yonathan Bocanegra Diagnosis: *ICD-10-PCS Ischemic cardiomyopathy (I2 [...] MV E-wave Vmax 1.2 m/sec MV deceleration [id number] msec MV A-wave Vmax 1 m/sec MV [...] Mid-Posterolateral Hypokinetic Mid-Inferior Hypokinetic Mid-Inferoseptal Hypokinetic [place]-Septal Akinetic [place]-Anterior Hypokinetic [place]-Lateral Hypokinetic [place]-Inferior Hypokinetic [place]-Tip Akinetic This report has been electronically sign ed by: _ Iker Cuevas M.D. 10/07/2017 11:12 :34 Images reviewed and interpretation elvie hwang [facility] Cardiac Ultrasound Laboratory Danette Maxwell APRN ECHO [...] Routine documented in this encounter Care Teams Complaints Coordinator Relationship Specialty Start Date End Date Lovely Vicente MD PCP - General 04/16/[address] [place] [address] documented as of this encounter
--- OUTSIDE RECORDS SUMMARY | 2022-05-20 09:33 | XMS_ITS | Encounter Summary ---
:1945 Author Organization [facility] [place] [address] Care Team Providers Name Role Phone Lovely Vicente MD Primary Care Provider Encounter Details Date Type Department Care Team Description 07/28/2019 Office Visit Cardiology at [facility] Danette Maxwell Chronic systolic heart failu re; [facility] A, STACIE ASHD (arteriosclerotic heart disease); Drive [facility] S/P CABG x 3; [place], [place] MARIA VICTORIA (obstructive sleep apnea) on CPAP; [phone] CARDIOLOGY Mixed hyperlipidemia [phone] [place], [place] [address] Social History Tobacco Use Types [...] in this encounter Progress Notes Danette Maxwell, ORCHARD WORKER - 07/28/2019 9:40 AM EST Images [...] regurgitation present. 07/07/2019 - 07/21/2019 Zio Patch Lay Out Drafter The patient had a minimum heart rate [...] K+ 4.5 today 6. Post-op atrial fibrillation [id number] (CHF, HTN, DM, vascular disease, thromboembolism) [...] advised: Refer to EP (Dr. Mcelroy in [place]) 5. Heart Failure Clinic follow up scheduled for: 3 months with proBNP and BMP Danette Maxwell APRN 07/28/2019 documented in this encounter Plan of Treatment Upcoming Encounters Date Type Specialty Care Team Description 05/28/2022 Appointment Cardiology Zulma Dolan MD [facility] [place], [place] [address] (Wo rk) 05/28/2022 Laboratory Appointment Lab 05/28/2022 Office Visit Cardiology Zulma Dolan MD [facility] [place] [address] Liz Poole PA [facility] [place] [address] 06/10/2022 Office Visit Dermatology Laura Scherer MD [facility] [address] [place], [place] [address] (Wo rk) documented as of this encounter Results (ABNORMAL) Basic Metabolic Panel (non-fasting) (07/28/2019 8:36 AM EST) P athologist Signature Glucose Lvl 153 65 - [address] [facility] mg/dL [facility] Comment: Diabetes: [...] OF [facility] Estimated GFR 70 >=60 mL/min/1.73 m?? [facility] Comment: The eGFR was calculated using the CKD-EP I equation. As with all creatinine based estimates of kidney function, eGFR values calculated with the CKD-EPI equation are not accurate in patients wi th acute kidney failure, extremes of body mass or the acutely ill. http://Desmos/[facility] Hospitalk eGFR 81 >=60 mL/min/1.73 m?? [facility] Comment: The eGFR was calculated using the CKD-EP I equation. As with all creatinine based estimates of kidney function, eGFR values calculated with the CKD-EPI equation are not accurate in patients wi th acute kidney failure, extremes of body mass or the acutely ill. http://Desmos/[facility]f Specimen Anatomical Collection Method Collection Time Receive d Time (Source) Location / / Volume Laterality Blood specimen 07/28/2019 8:36 AM 020 8:46 (specimen) EST AM EST Resulting Agency Comment Spec In Lab Danette Maxwell APRN CHEMISTRY ORDERABLES Performing Organization Address City/State/ZIP Code Phon e Number [address] (ABNORMAL) pro-Brain Natriuretic Peptide [...] [facility]/[place] [address] documented in this encounter Visit Diagnoses Diagnosis Chronic systolic heart failure ASHD (arteriosclerotic heart disease) Coronary atherosclerosis of unspecified type of vessel, [place] or graft S/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
--- OUTSIDE RECORDS SUMMARY | 2022-05-20 09:33 | XMS_ITS | Encounter Summary ---
:1945 Author Organization [facility] [place] [address] Care Team Providers Name Role Phone Lovely Vicente MD Primary Care Provider Reason for Visit Reason Onset Date Comments Other 11/11/2017 Please call [facility] Encounter Details Date Type Department Care Team Description 11/11/2017 Telephone Cardiology at [facility] Danette Maxwell, Other (Please call [facility] GLASS DESIGNER [facility] ) [place] [address] CARDIOLOGY [place], [place] [address] (Wo rk) Social History Tobacco [...] Dolan MD [facility] [place], [place] [address] (Wo rk) 05/28/2022 Laboratory Appointment Lab 05/28/2022 Office Visit Cardiology Zulma Dolan MD [facility] [place] [address] Liz Poole PA [facility] [place] [address] 06/10/2022 Office Visit Dermatology Laura Scherer MD [facility] [address] [place], [place] [address] (Wo rk) documented as of this encounter Visit Diagnoses Not on filedocumented in this encounter Care Teams Bill Clerk Relationship Specialty Start Date End Date Lovely Vicente MD PCP - General 04/16/15 [facility] [address] [place] [address] documented as of this encounter
--- OUTSIDE RECORDS SUMMARY | 2022-05-20 09:33 | XMS_ITS | Encounter Summary ---
:1945 Author Organization [place] [address] Care Team Providers Name Role Phone Lovely Vicente MD Primary Care Provider Encounter Details Date Type Department Care Team Description 08/26/2018 Transcribe Orders Laboratory Lovely Vicente, Deferred diagnosis [facility] on axis I [address] [address] [place], [place] [phone] [address] Social History Tobacco Use Types Packs/Day Years [...] Cardiology Zulma Dolan MD [facility] [address] [place], [place] [address] (Wo rk) 05/28/2022 Laboratory Appointment Lab 05/28/2022 Office Visit Cardiology Zulma Dolan MD [facility] [place] [address] Liz Poole PA [facility] [place] [address] 06/10/2022 Office Visit Dermatology Laura Scherer MD [facility] [address] [place], [place] [address] (Wo rk) documented as of this encounter Visit Diagnoses Diagnosis Deferred diagnosis on axis I Other unknown and unspecified cause of m orbidity or mortality documented in this encounter Care Teams Client Engagement Specialist Relationship Specialty Start Date End Date Lovely Vicente MD PCP - General 04/16/15 [facility] [address] [place] [address] documented as of this encounter
--- OUTSIDE RECORDS SUMMARY | 2022-05-20 09:33 | XMS_ITS | Encounter Summary ---
:1945 Author Organization [facility] Address [facility] [place] [address] Care Team Providers Name Role Phone Lovely Vicente MD Primary Care Provider Reason for Referral Diagnostic Test (Routine) - Closed Specialty Diagnoses / Procedures Referred By Contact Refer red To Contact Cardiology Diagnoses Chronic systolic heart failure Danette Maxwell APRN [facility] Non-Inv Card Lab Procedures Echocardiogram Transthoracic(Leb) [facility] [address] [place] [address] [place] [address] Referral ID Status Reason Start Date Expiration Date Visits V isits Requested Authorized [id number] Closed Specialty 07/17/2019 09/14/2019 1 1 Service Requested Encounter Details Date Type Department Care Team Description 01/16/2019 Office Visit Cardiology at [facility] Danette Maxwell, Chronic systolic heart failu re; [facility] STACIE Cardiomyopathy, ischemic; Drive [facility] Hx of thyroid cancer; [place], [place] DR ELMORE (arteriosclerotic heart disease); [phone] CARDIOLOGY MARIA VICTORIA (obstructive sleep apnea) on CPAP [phone] [place], [place] [address] (Wo rk) Social History Tobacco Use Types [...] K+ 4.6 today 6. Post-op atrial fibrillation [id number] 7 (CHF, HTN, DM, vascular disease, thromboembolism) [...] Cardiology Zulma Dolan MD [facility] [place], [place] [address] (Wo rk) 05/28/2022 Laboratory Appointment Lab 05/28/2022 Office Visit Cardiology Zulma Dolan MD [facility] [place] [address] Liz Poole PA [facility] [place] [address] 06/10/2022 Office Visit Dermatology Laura Scherer MD [facility] [address]LOG[address] [place], [place] [address] (Wo rk) documented as of this encounter Results ECHOCARDIOGRAM COMPLETE W CONTRAST (07/28/2019 8:19 AM EST) athologist Signature EF 40 HEARTLAB SYSTEM Anatomical Region Laterality Modality Other Specimen (Source) Anatomical Location Collection Method / Collectio n Time Received Time / Laterality Volume 07/28/2019 Narrative 07/28/2019 8:38 AM EST Procedure: ?Transthoracic Echocardiogram Patient: ?NATALYA Mccollum ? (Age): 1945(74y) Med Rec#: ? [id number] ?Sex: ?M ? Site Loc: ? [facility] ?Ht / Wt: ??172(cm)/81(kg) Pt. Loc: ?Echo Lab ?BSA: ?1.94 Study Date: ?? 07/28/2019 ?Pt. Type: Outpatient Tape: ? Referring: MARY ELLEN Reading: Ifeanyi Truong ([id number]) Product Specialist: Fadumo Flanagan RDCS, REGINA Diagnosis: *Chronic systolic [...] E-wave Vmax ?1 ?m/sec ? MV deceleration gdhc999.5 ? msec ? MV A-wave Vmax ?1 [...] ? Mid-Inferior ?Hypokinetic ? Mid-Inferoseptal ?Normal ? [place]-Septal ? Normal ? [place]-Anterior ? Hypokinetic ? [place]-Lateral ?Normal ? [place]-Inferior ? Akinetic ? [place]-Tip ?Hypokinetic ? This report has been electronically sign ed by: _ Ifeanyi Truong M.D. ? 07/28/2019 0 8:38:01 Images [facility] Procedure Note Ifeanyi Truong MD - 07/28/2019Formatt ing of this note might be different from the original. Procedure: Transthoracic Echocardiogram Patient: NATALYA MCBRIDE(Age): [birth year]74y) Med Rec#: [id number] Sex: M Site Loc: [facility] Ht / Wt: 172(cm)/81(kg) Pt. Loc: Echo Lab BSA: 1.94 Study Date: 07/28/2019 Pt. Type: Outpati ent Tape: Referring: MARY ELLEN Reading: Ifeanyi Truong ([id number]) Product Specialist: Fadumo Flanagan [facility], [place] Diagnosis: *Chronic systolic (congestive) heart [...] MV E-wave Vmax 1 m/sec MV deceleration [id number] msec MV A-wave Vmax 1 m/sec MV [...] Normal Mid-Posterolateral Normal Mid-Inferior Hypokinetic Mid-Inferoseptal Normal [place]-Septal Normal [place]-Anterior Hypokinetic [place]-Lateral Normal [place]-Inferior Akinetic [place]-Tip Hypokinetic This report has been electronically sign ed by: _ Ifeanyi Truong M.D. 07/28/2019 08:38:0 1 Images reviewed and interpretation verif ied [facility] Cardiac Ultrasound Laboratory Danette Maxwell APRN ECHO ORDERABLES (ABNORMAL) Basic Metabolic Panel (non-fasting) (01/16/2019 7:49 AM EDT) P athologist Signature Glucose Lvl 105 65 - 199 [facility] mg/dL [facility] Comment: [...] of body mass or the acutely ill. [email or web address] eGFR 79 >=60 mL/min/1.73 m?? [facility] Comment: The eGFR was calculated using the CKD-EP I equation. As with all creatinine based estimates of kidney function, eGFR values calculated with the CKD-EPI equation are not accurate in patients wi th acute kidney failure, extremes of body mass or the acutely ill. http://[employer]/[facility] Specimen Anatomical Collection Method Collection Time Receive d Time (Source) Location / / Volume Laterality Blood specimen 01/16/2019 7:49 AM 019 7:55 (specimen) EDT AM EDT Resulting Agency Comment Spec In Lab Danette Maxwell APRN CHEMISTRY ORDERABLES Performing Organization Address City/State/[place] [address] (ABNORMAL) pro-Brain Natriuretic Peptide (01/16/2019 7:49 AM EDT) P athologist Signature ProBNP 780 (H) <=125 pg/mL [facility] Specimen Anatomical Collection Method Collection Time Receive d Time (Source) Location / / Volume Laterality Blood specimen 01/16/2019 7:49 AM 019 7:55 (specimen) EDT AM EDT Resulting Agency Comment Spec In Lab Danette Maxwell OLAP DEVELOPER CHEMISTRY ORDERABLES Performing Organization Address City/State/[place] [address] documented in this encounter Visit Diagnoses Diagnosis Chronic systolic heart failure Cardiomyopathy, ischemic Other specified forms of chronic ischemi c heart disease Hx of thyroid cancer Personal history of malignant neoplasm o f thyroid ASHD (arteriosclerotic heart disease) Coronary atherosclerosis of unspecified type of vessel, chicken ranch or graft MARIA VICTORIA (obstructive sleep apnea) on CPAP Obstructive sleep apnea (adult) (pediatr ic) Chronic systolic heart failure documented in this encounter Care Teams Carbonating Stone Cleaner Relationship Specialty Start Date End Date Lovely Vicente MD PCP - General 04/16/[address] [place] [address] documented as of this encounter
--- OUTSIDE RECORDS SUMMARY | 2022-05-20 09:33 | XMS_ITS | Encounter Summary ---
:1945 Author Organization [facility] Address [facility] [place] [address] Care Team Providers Name Role Phone Lovely Vicente MD Primary Care Provider Reason for Referral Diagnostic Test (Routine) - Specialty Diagnoses / Procedures Referred By Contact Refer red To Contact Cardiology Diagnoses Chronic systolic heart failure Danette Maxwell APRN [facility] Non-Inv Card Lab Procedures Echocardiogram Transthoracic(Leb) [facility] [place] [address] [place] [address] Referral ID Status Reason Start Date Expiration Visits Visits Date Requested Authorized [id number] Specialty 08/15/2018 08/15/2018 1 1 Service Requested Encounter Details Date Type Department Care Team Description 04/18/2018 Office Visit Cardiology at [facility] Danette Maxwell Chronic systolic heart failu re; [facility] STACIE Gomes On amiodarone therapy; [facility] Ischemic cardiomyopathy; [place], [place] DR ONOFRE (arteriosclerotic cardiovascular d isease) [phone] CARDIOLOGY [phone] [place], [place] [address] Social History Tobacco Use Types Packs/Day Years [...] in this encounter Progress Notes Danette Maxwell, WIRELESS SALES REPRESENTATIVE - 04/18/2018 10:40 AM EDT ID and [...] Zulma Dolan MD [facility] [address] [place], [place] [address] (Wo rk) 05/28/2022 Laboratory Appointment Lab 05/28/2022 Office Visit Cardiology Zulma Dolan MD [facility] [place] [address] Liz Poole PA [facility] [place] [address] 06/10/2022 Office Visit Dermatology Laura Scherer MD [facility] [address] [place], [place] [address] (Wo rk) documented as of this encounter Results ECHOCARDIOGRAM COMPLETE W CONTRAST (08/15/2018 7:55 AM EST) P athologist Signature EF 35 HEARTLAB SYSTEM Anatomical Region Laterality Modality Other Specimen (Source) Anatomical Location Collection Method / Collectio n Time Received Time / Laterality Volume 08/15/2018 Narrative 08/15/2018 8:18 AM EST Procedure: ?Transthoracic Echocardiogram Patient: ?NATALYA Mccollum ? (Age): 1945(73y) Med Rec#: ? [id number] ?Sex: ?M ? Site Loc: ? [facility] ?Ht / Wt: ??172(cm)/81(kg) Pt. Loc: ?Echo Lab ?BSA: ?1.94 Study Date: ?? 08/15/2018 ?Pt. Type: Outpatient Tape: ? Referring: MARY ELLEN Reading: Scott Ortega ([id number]) High School Sports Coach: Laura Sargent Diagnosis: *Chronic systolic (congestive) heart [...] E-wave Vmax ?1.2 ?m/sec ? MV deceleration gyxj636.4 ? msec ? MV A-wave Vmax ?0.7 [...] ? Mid-Inferior ?Hypokinetic ? Mid-Inferoseptal ?Hypokinetic ? [place]-Septal ? Akinetic ? [place]-Anterior ? Hypokinetic ? [place]-Lateral ?Akinetic ? [place]-Inferior ? Hypokinetic ? [place]-Tip ?Akinetic ? This report has been electronically sign ed by: _ Scott Ortega M.D. ? 08/15/2018 08:17:26 Images reviewed and interpretation verif ied [facility] Cardiac Ultrasound Laboratory Procedure Note Scott Ortega MD - 08/15/2018Format ting of this note might be different from the original. Procedure: Transthoracic Echocardiogram Patient: NATALYA MCBRIDE(Age): [birth year]73y) Med Rec#: [id number] Sex: M Site Loc: [facility] Ht / Wt: 172(cm)/81(kg) Pt. Loc: Echo Lab BSA: 1.94 Study Date: 08/15/2018 Pt. Type: Outpati ent Tape: Referring: MARY ELLEN Reading: Scott Ortega ([id number]) High School Sports Coach: Laura Sargent Diagnosis: *Chronic systolic (congestive) heart [...] MV E-wave Vmax 1.2 m/sec MV deceleration vxlg648.4 msec MV A-wave Vmax 0.7 m/sec MV [...] Akinetic Mid-Posterolateral Akinetic Mid-Inferior Hypokinetic Mid-Inferoseptal Hypokinetic [place]-Septal Akinetic [place]-Anterior Hypokinetic [place]-Lateral Akinetic [place]-Inferior Hypokinetic [place]-Tip Akinetic This report has been electronically sign ed by: _ Scott Ortega M.D. 08/15/2018 08:17: 26 Images reviewed and interpretation verif ied [facility] Cardiac Ultrasound Laboratory Danette Maxwell APRN ECHO ORDERABLES (ABNORMAL) Basic Metabolic Panel (non-fasting) (04/18/2018 9:19 AM EDT) P athologist Signature Glucose Lvl 167 65 - 199 [facility] mg/dL [facility] Comment: Diabetes: >=200 mg/dL plus symp toms BUN 18 10 - 20 mg/dL [facility] Creatinine 1.19 0.80 - 1.50 mg/dL [facility] Sodium 147 (H) 135 - 145 mmol/L [facility] Estimated GFR 61 >=60 mL/min/1.73 m?? [facility] Comment: The eGFR was calculated using the CKD-EP I equation. As with all creatinine based estimates of kidney function, eGFR values calculated with the CKD-EPI equation are not accurate in patients wi th acute kidney failure, extremes of body mass or the acutely ill. http://[employer]/[facility] eGFR 70 >=60 mL/min/1.73 m?? [facility] Comment: The eGFR was calculated using the CKD-EP I equation. As with all creatinine based estimates of kidney function, eGFR values calculated with the CKD-EPI equation are not accurate in patients wi th acute kidney failure, extremes of body mass or the acutely ill. http://[employer]/[facility] Specimen Anatomical Collection Method Collection Time Receive d Time (Source) Location / / Volume Laterality Blood specimen 04/18/2018 9:19 AM 018 9:34 (specimen) EDT AM EDT Resulting Agency Comment Spec In Lab Danette Maxwell APRN CHEMISTRY ORDERABLES Performing Organization Address City/State/[place] [address] (ABNORMAL) pro-Brain Natriuretic Peptide (04/18/2018 9:19 AM EDT) P athologist Signature ProBNP 2,199 (H) <=125 [facility] pg[facility]mL [facility] Specimen Anatomical Collection Method Collection Time Receive d Time (Source) Location / / Volume Laterality Blood specimen 04/18/2018 9:19 AM 018 9:34 (specimen) EDT AM EDT Resulting Agency Comment Spec In Lab Danette Maxwell APRN CHEMISTRY ORDERABLES Performing Organization Address City/State/[place] [address] documented in this encounter Visit Diagnoses Diagnosis Chronic systolic heart failure On amiodarone therapy Ischemic cardiomyopathy Other specified forms of chronic ischemi c heart disease ASCVD (arteriosclerotic cardiovascular d isease) Unspecified cardiovascular disease Chronic systolic heart failure documented in this encounter Care Teams Refuse Collector Relationship Specialty Start Date End Date Lovely Vicente MD PCP - General 04/16/[address] [place] [address] documented as of this encounter
--- OUTSIDE RECORDS SUMMARY | 2022-05-20 09:33 | XMS_ITS | Encounter Summary ---
:1945 Author Organization [place] [address] Care Team Providers Name Role Phone Lovely Vicente MD Primary Care Provider Reason for Visit Reason Comments Follow-up Skin Check Encounter Details Date Type Department Care Team Description 01/06/2018 Office Visit Dermatology at Rigoberto Formantip[facility] nevi; Abdelrahman HOOPER MD History of melanoma; [address] [facility] [place] [address] [facility] [place], [place] [address] Social History Tobacco Use Types [...] Dolan MD [facility] [place] [address] (Wo rk) 05/28/2022 Laboratory Appointment Lab 05/28/2022 Office Visit Cardiology Zulma Dolan MD [facility] [place] [address] Liz Poole PA [facility] [place] [address] 06/10/2022 Office Visit Dermatology Laura Scherer MD [facility] DR [address] [place], [place] [address] (Wo rk) documented as of this encounter Visit Diagnoses Diagnosis Multiple nevi Benign neoplasm of skin, site unspecifie d History of melanoma Personal history of malignant melanoma o f skin Seborrheic keratosis Other seborrheic keratosis documented in this encounter Care Teams Marketing Segment Manager Relationship Specialty Start Date End Date Lovely Vicente MD PCP - General 04/16/[address] [place] [address] documented as of this encounter
--- OUTSIDE RECORDS SUMMARY | 2022-05-20 09:33 | XMS_ITS | Encounter Summary ---
:1945 [place] [address] Care Team Providers Name Role Phone Lovely Vicente MD Primary Care Provider Encounter Details Date Type Department Care Team Description 07/12/2019 Office Visit Dermatology at [facility], Rigoberto Yarbrough (actinic keratosis); MD SHAY Quick III (seborrheic keratosis); [address] [facility] Multiple benign nevi; [place] [address] History of melanoma [phone] [facility] [place], [place] [address] Social History Tobacco Use Types [...] Dolan MD [facility] [address] [place], [place] [address] (Wo rk) 05/28/2022 Laboratory Appointment Lab 05/28/2022 Office Visit Cardiology Zulma Dolan MD [facility] [place] [address] Liz Poole PA [facility] [place] [address] 06/10/2022 Office Visit Dermatology Laura Scherer MD [facility] [address] [place], [place] [address] (Wo rk) documented as of this encounter Visit Diagnoses Diagnosis AK (actinic keratosis) Actinic keratosis SK (seborrheic keratosis) Other seborrheic keratosis Multiple benign nevi Benign neoplasm of skin, site unspecifie d History of melanoma Personal history of malignant melanoma o f skin documented in this encounter Care Teams Lieutenant/Deputy Relationship Specialty Start Date End Date Lovely Vicente MD PCP - General 04/16/15 [facility] [address] [place] [address] documented as of this encounter
--- OUTSIDE RECORDS SUMMARY | 2022-05-20 09:33 | XMS_ITS | Encounter Summary ---
:1945 Author Organization [facility] [place] [address] Care Team Providers Name Role Phone Lovely Vicente MD Primary Care Provider Reason for Referral Diagnostic Test (Routine) - Closed Specialty Diagnoses / Procedures Referred By Contact Refer red To Contact Cardiology Diagnoses Chronic systolic heart failure Danette Maxwell APRN [facility] Non-Inv Card Lab Procedures Echocardiogram Transthoracic(Leb) [facility] [place] [address] [place] [address] Referral ID Status Reason Start Date Expiration Date Visits V isits Requested Authorized [id number] Closed Specialty 07/17/2019 09/14/2019 1 1 Service Requested Reason for Visit Diagnostic Test (Routine) - Closed Specialty Diagnoses / Procedures Referred By Contact Refer red To Contact Cardiology Diagnoses Chronic systolic heart failure Danette Maxwell APRN [facility] Non-Inv Card Lab Procedures Echocardiogram Transthoracic(Leb) [facility] [place] [address] [place] [address] Referral ID Status Reason Start Date Expiration Date Visits V isits Requested Authorized [id number] Closed Specialty 07/17/2019 09/14/2019 1 1 Service Requested Encounter Details Date Type Department Care Team Description 07/28/2019 Hospital Encounter Non-Invasive Chronic s ystolic heart [place] [address] Social History Tobacco Use Types Packs/Day [...] Dolan MD [facility] [address] [place], [place] [address] (Wo rk) 05/28/2022 Laboratory Appointment Lab 05/28/2022 Office Visit Cardiology Zulma Dolan MD [facility] [place] [address] Liz Poole PA [facility] [place] [address] 06/10/2022 Office Visit Dermatology Laura Scherer MD [facility] [address] OLOG[address] [place], [place] [address] (Wo rk) documented as [...] Mccollum ? (Age): 1945(74y) Med Rec#: ? [id number] ?Sex: ?M ? Site Loc: ? [facility] ?Ht / Wt: ??172(cm)/81(kg) Pt. Loc: ?Echo Lab ?BSA: ?1.94 Study Date: ?? 07/28/2019 ?Pt. Type: Outpatient Tape: ? Referring: MARY ELLEN Reading: Ifeanyi Truong ([id number]) Outboard Motor Assembler: Fadumo Flanagan RDCS, FASE Diagnosis: *Chronic systolic [...] E-wave Vmax ?1 ?m/sec ? MV deceleration dmbc623.5 ? msec ? MV A-wave Vmax ?1 [...] ? Mid-Inferior ?Hypokinetic ? Mid-Inferoseptal ?Normal ? [place]-Septal ? Normal ? [place]-Anterior ? Hypokinetic ? [place]-Lateral ?Normal ? [place]-Inferior ? Akinetic ? [place]-Tip ?Hypokinetic ? This report has been electronically sign ed by: _ Ifeanyi Truong M.D. ? 07/28/2019 0 8:38:01 Images reviewed and interpretation verif ied [facility] Cardiac Ultrasound Laboratory Procedure Note Ifeanyi Truong MD - 07/28/2019Formatt ing of this note might be different from the original. Procedure: Transthoracic Echocardiogram Patient: NATALYA MCBRIDE(Age): [birth year]74y) Med Rec#: [id number] Sex: M Site Loc: [facility] Ht / Wt: 172(cm)/81(kg) Pt. Loc: Echo Lab BSA: 1.94 Study Date: 07/28/2019 Pt. Type: Outpati ent Tape: Referring: MARY ELLEN Reading: Ifeanyi Truong ([id number]) Outboard Motor Assembler: Fadumo Flanagan [place], [facility] Diagnosis: *Chronic systolic (congestive) heart fa [...] MV E-wave Vmax 1 m/sec MV deceleration jwje345.5 msec MV A-wave Vmax 1 m/sec MV [...] Normal Mid-Posterolateral Normal Mid-Inferior Hypokinetic Mid-Inferoseptal Normal [place]-Septal Normal [place]-Anterior Hypokinetic [place]-Lateral Normal [place]-Inferior Akinetic [place]-Tip Hypokinetic This report has been electronically sign ed by: _ Ifeanyi Truong M.D. 07/28/2019 08:38:0 1 Images reviewed and interpretation elvie hwang [facility] Cardiac Ultrasound Laboratory Danette A [...] Routine documented in this encounter Care Teams Pharmacist Relationship Specialty Start Date End Date Lovely Vicente MD PCP - General 04/16/[address] [place] [address] documented as of this encounter
--- OUTSIDE RECORDS SUMMARY | 2022-05-20 09:33 | XMS_ITS | Encounter Summary ---
:1945 Author Organization [facility] [place] [address] Care Team Providers Name Role Phone Lovely Vicente MD Primary Care Provider Reason for Visit Reason Comments Skin Check Encounter Details Date Type Department Care Team Description 07/06/2018 Office Visit Dermatology at [facility], Rigoberto Yarbrough (actinic keratosis); MD SHAY Quick III (seborrheic keratosis); [address] [facility] History of melanoma; [place] [address] Skin exam for malignant neoplasm [phone] [facility] [place], [place] [address] Social History Tobacco [...] leg - he had vascular surgery in [facility] while he lost several toes, they saved [...] Zulma Dolan MD [facility] [address] [place], [place] [address] (Wo rk) 05/28/2022 Laboratory Appointment Lab 05/28/2022 Office Visit Cardiology Zumla Dolan MD [facility] [place] [address] Liz Poole PA [facility] [place] [address] 06/10/2022 Office Visit Dermatology Laura Scherer MD [facility] [address] [place], [place] [address] (Wo rk) documented as of this encounter Visit Diagnoses Diagnosis [place] (actinic keratosis) Actinic keratosis SK (seborrheic keratosis) Other seborrheic keratosis History of melanoma Personal history of malignant melanoma o f skin Skin exam for malignant neoplasm Screening for malignant neoplasm of the skin documented in this encounter Care Teams Needle Loom Operator Relationship Specialty Start Date End Date Lovely Vicente MD PCP - General 04/16/[address] [place] [address] documented as of this encounter
--- OUTSIDE RECORDS SUMMARY | 2022-05-20 09:33 | XMS_ITS | Encounter Summary ---
:1945 Author Organization [facility] [place] [address] Care Team Providers Name Role Phone Lovely Vicente MD Primary Care Provider Encounter Details Date Type Department Care Team Description 11/29/2017 Hospital Encounter Vascular Lab at Janett Walter P[facility] (peripheral [facility], RVT artery [facility] [place] [phone] Social History Tobacco Use Types Packs/Day Years [...] Zulma Dolan MD [facility] [address] [place], [place] [address] (Wo rk) 05/28/2022 Laboratory Appointment Lab 05/28/2022 Office Visit Cardiology Zulma Dolan MD [facility] [place] [address] Liz Poole PA [facility] [place] [address] 06/10/2022 Office Visit Dermatology Laura Scherer MD [facility] [address] [place], [place] [address] (Wo rk) documented as of [...] Department: Vascular Surgery Lab VASCU[facility] Report Patient: [id number] (DON HOANG) CPT: 69488 ICD10: I72.4;I73.9 Referring Physician: DANETTE MAXWELL ?? [...] unspecified documented in this encounter Care Teams Sales Operations Director Relationship Specialty Start Date End Date Lovely Vicente MD PCP - General 04/16/[address] [place], [place] [address]Y [facility] [address] [place] [address] documented as of this encounter
--- OUTSIDE RECORDS SUMMARY | 2022-05-20 09:33 | XMS_ITS | Encounter Summary ---
:1945 Author Organization [facility] [place] [address] Care Team Providers Name Role Phone Lovely Vicente MD Primary Care Provider Encounter Details Date Type Department Care Team Description 01/16/2019 Laboratory Appointment Lab 3L [facility] [place] [phone] Social History Tobacco Use Types Packs/Day Years [...] MD [facility] er [place], [place] [address] (Wo rk) 05/28/2022 Laboratory Appointment Lab 05/28/2022 Office Visit Cardiology Zulma Dolan [place] [address] Liz Poole PA [facility] [place] [address] 06/10/2022 Office Visit Dermatology Laura Scherer MD [facility] ER DR TE[address] GR[address]MAT [place], [place] [address] [...] Organization Address City/State/[place] [address] (ABNORMAL) Basic Metabolic Panel (non-fasting) (01/16/2019 7:49 AM EDT) athologist Signature Glucose Lvl 105 65 - 199 [facility] mg/dL [facility] LABORATORY Comment: [...] of body mass or the acutely ill. http://Graftys/TopiVertnkf eGFR 79 >=60 mL/min/1.73 m?? [facility] LABORATORY Comment: The eGFR was calculated using the CKD-EP I equation. As with all creatinine based estimates of kidney function, eGFR values calculated with the CKD-EPI equation are not accurate in patients wi th acute kidney failure, extremes of body mass or the acutely ill. http://Graftys/TopiVertnkf Specimen Anatomical Collection Method Collection Time Receive d Time (Source) Location / / Volume Laterality Blood specimen 01/16/2019 7:49 AM 019 7:55 (specimen) EDT AM EDT Resulting Agency Comment Spec In Lab Danette Maxwell APRN CHEMISTRY ORDERABLES Performing Organization Address City/State/[place] [address] documented in this encounter Visit Diagnoses Diagnosis Chronic systolic heart failure documented in this encounter Care Teams Television Production Clerk Relationship Specialty Start Date End Date Lovely Vicente MD PCP - General 04/16/[address] [place] [address] documented as of this encounter
--- OUTSIDE RECORDS SUMMARY | 2022-05-20 09:33 | XMS_ITS | Encounter Summary ---
:1945 Author Organization [facility] [place] [address] Care Team Providers Name Role Phone Lovely Vicente MD Primary Care Provider Encounter Details Date Type Department Care Team Description 11/29/2017 Laboratory Lab 3L Barbara Chronic systoli c congestive heart failure; Appointment [facility] ASCVD (ar teriosclerotic cardiovascular disease); Hospital Cardiomyopathy, [place] [address] Social History Tobacco Use Types [...] MD [facility] [place] [address] (Wo rk) 05/28/2022 Laboratory Appointment Lab 05/28/2022 Office Visit Cardiology Zulma Dolan MD [facility] [place] [address] Liz Poole PA [facility] [place] [address] 06/10/2022 Office Visit Dermatology Laura Scherer MD [facility] ER DR [address]DERMAT [place], [place] [address] (Wo rk) documented as of [...] 12.5 [facility] LABORATORY INR 2.1 [place] [...] Organization Address City/State/[place] [address] (ABNORMAL) Basic Metabolic Panel (non-fasting) (11/29/2017 8:22 AM EDT) P athologist Signature Glucose Lvl 217 (H) 65 - 199 [facility] mg/dL [facility] LABORATORY [...] [facility] LABORATORY Estimated GFR >60 >=60 [facility] LABORATORY Comment: The reported eGFR should be multiplied b y 1.2 for patients. The MDRD is not an appropriate measure o f renal function for patients with body mass extremes or in patients with acute kidney failure. http://AugmentWare.Cint/DHnkdep http://Music180.com/DHMCnkf Specimen Anatomical Collection Method Collection Time Receive d Time (Source) Location / / Volume Laterality Blood specimen 11/29/2017 8:22 AM 018 8:29 (specimen) EDT AM EDT Resulting Agency Comment Spec In Lab Danette Maxwell APRN CHEMISTRY ORDERABLES Performing Organization Address City/State/[place] [address] (ABNORMAL) pro-Brain Natriuretic Peptide (11/29/2017 8:22 AM EDT) P athologist Signature ProBNP 1,769 (H) <=125 [facility] pg/mL [facility] LABORATORY Specimen Anatomical Collection Method Collection Time Receive d Time (Source) Location / / Volume Laterality Blood specimen 11/29/2017 8:22 AM 018 8:29 (specimen) EDT AM EDT Resulting Agency Comment Spec In Lab Danette Maxwell APRN CHEMISTRY ORDERABLES Performing Organization Address City/State/ZIP Code Phon e Number [address] Lavender Tube HOLD (11/29/2017 8:14 AM EDT) Patholo gist Method Time Signature Lavender Hold Sample in [facility] lab. [facility] LABORATORY Specimen Anatomical Collection Method Collection Time Receive d Time (Source) Location / / Volume Laterality Blood specimen No Charge / 11/29/2017 8:14 AM 018 8:29 (specimen) Unknown EDT AM EDT Lovely Vicente MD HEMATOLOGY ORDERABLES Performing Organization Address City/State/[place] [address] documented in this encounter Visit Diagnoses Diagnosis Chronic systolic congestive heart failur e Chronic systolic heart failure ASCVD (arteriosclerotic cardiovascular d isease) Unspecified cardiovascular disease Cardiomyopathy, ischemic Other specified forms of chronic ischemi c heart disease documented in this encounter Care Teams Truck Leasing Manager Relationship Specialty Start Date End Date Lovely Vicente MD PCP - General 04/16/[address] [place] [address] documented as of this encounter
--- OUTSIDE RECORDS SUMMARY | 2022-05-20 09:33 | XMS_ITS | Encounter Summary ---
:1945 Author Organization [facility] [place] [address] Care Team Providers Name Role Phone Lovely Vicente MD Primary Care Provider Reason for Visit Reason Onset Date Comments Follow-up 07/13/2018 amiodarone discontin ued Encounter Details Date Type Department Care Team Description 07/13/2018 Telephone Cardiology at [facility] Martha Comer, Follow-up (amiodarone [facility] RN discontin [place]ed) [place] [address] Social History Tobacco Use Types Packs/Day [...] RN - 07/13/2018 8:57 AM EST Per HARDSCAPE FOREMAN Hans call placed to the home number for the pt. confirmed that the pt is still taking the amiodarone. Pt is to stop the amiodarone. Pt taking it for post op a-fib, therapy was supposed to be for 30 days. Message given to his . She will give him the message and will have him call with any questions. Call placed to the [facility] in [place] to discontinue it there as well. Med list updated. documented in this encounter Plan of Treatment Upcoming Encounters Date Type Specialty Care Team Description 05/28/2022 Appointment Cardiology Zulma Dolan MD [facility] [address] [place], [place] [address] (Wo rk) 05/28/2022 Laboratory Appointment Lab 05/28/2022 Office Visit Cardiology Zulma Dolan MD [facility] [place] [address] Liz Poole PA [facility] [place] [address] 06/10/2022 Office Visit Dermatology Laura Scherer MD [facility] DR [address] [place], [place] [address] (Wo rk) documented as of this encounter Visit Diagnoses Not on filedocumented in this encounter Care Teams Senior Rd Engineer Relationship Specialty Start Date End Date Lovely Vicente MD PCP - General 04/16/[address] [place] [address] documented as of this encounter
--- OUTSIDE RECORDS SUMMARY | 2022-05-20 09:33 | XMS_ITS | Encounter Summary ---
:1945 Author Organization [facility] [place] [address] Care Team Providers Name Role Phone Lovely Vicente MD Primary Care Provider Encounter Details Date Type Department Care Team Description 11/29/2017 Office Visit Cardiology [place] [facility] Annette Maxwell Chronic systolic congestive heart failure; [facility] A, RIVETER HELPER ASCVD (arteriosclerotic cardiovascular d isease); [facility] Cardiomyopathy, ischemic; [place], [place] PAD (peripheral artery disease) [phone] CARDIOLOGY [phone] [place], [place] [address] Social History Tobacco Use Types [...] in this encounter Progress Notes Annette Maxwell, RIVETER HELPER - 11/29/2017 9:20 AM EDT ID and CC: Gregory Hoang is a 72 y.o. male presenting for hospital f/u regarding ASCVD, ischemic cardiomyopathy ?? HPI: Mr. 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 [...] greater saphenous vein (done at [facility]), debridement of right foot with [...] 80 10/25/2017: right popliteal-pedal bypass at [facility] ? Plan: 1. A review of [...] MD [facility] [place], [place] [address] (Wo rk) 05/28/2022 Laboratory Appointment Lab 05/28/2022 Office Visit Cardiology Zulma Dolan MD [facility] [place] [address] Liz Poole PA [facility] [place] [address] 06/10/2022 Office Visit Dermatology Laura Scherer MD [facility] DR [address] [place], [place] [address] (Wo rk) documented as of this encounter Results Arterial Duplex Leg, Unil (11/29/2017 10:32 AM EDT) Component Value Ref Test Analysis Performed At [facility] Range Method Time Signature VB Text Department: Vascular Surgery Lab VASCUBASE Report Patient: [id number] (GREGORY HOANG) CPT: 98963 ICD10: I72.4;I73.9 Referring Physician: ANNETTE MAXWELL ?? [...] Glucose Lvl 217 (H) 65 - 199 [facility] mg/dL [facility] LABORATORY Comment: Diabetes: >=200 mg/dL plus symp toms BUN 26 (H) 10 - 20 mg/dL [facility] LABORATORY Creatinine 0.96 0.80 - 1.50 mg/dL [facility] [...] or in patients with acute kidney failure. http://Intervention Insights.Powered by Peak/DHnkdep http://[employer]/DHMCnkf Specimen Anatomical Collection Method Collection Time Receive d Time (Source) Location / / Volume Laterality Blood specimen 11/29/2017 8:22 AM 05/07/2 018 8:29 (specimen) EDT AM EDT Resulting Agency Comment Spec In Lab Annette Maxwell RIVETER HELPER CHEMISTRY ORDERABLES Performing Organization Address City/State/[place] [address] (ABNORMAL) pro-Brain Natriuretic Peptide (11/29/2017 8:22 AM EDT) P athologist Signature ProBNP 1,769 (H) <=125 [facility] pg/mL [facility] LABORATORY Specimen Anatomical Collection Method Collection Time Receive d Time (Source) Location / / Volume Laterality Blood specimen 11/29/2017 8:22 AM 018 8:29 (specimen) EDT AM EDT Resulting Agency Comment Spec In Lab Annette Maxwell RIVETER HELPER CHEMISTRY ORDERABLES Performing Organization Address City/[facility]/[place] [address] documented in this encounter [...] General 04/16/[address] [place] [address] documented as of this encounter
--- OUTSIDE RECORDS SUMMARY | 2022-05-20 09:34 | XMS_ITS | Encounter Summary ---
:1945 Author Organization [facility] [place] [address] Care Team Providers Name Role Phone Lovely Vicente MD Primary Care Provider Encounter Details Date Type Department Care Team Description 09/06/2017 Orders Only Vascular Surgery at [facility] Ninfa Clark, [facility] [place] [address] Social History Tobacco Use Types Packs/Day [...] Dolan MD [facility] er [place], [place] [address] (Wo rk) 05/28/2022 Laboratory Appointment Lab 05/28/2022 Office Visit Cardiology Zulma Dolan MD [facility] [place] [address] Liz Poole PA [facility] [place] [address] 06/10/2022 Office Visit Dermatology Laura Scherer MD [facility] [address] [place], [place] [address] (Wo rk) documented as of this encounter Visit Diagnoses Not on filedocumented in this encounter Care Teams Ultrasonographer Relationship Specialty Start Date End Date Lovely Vicente MD PCP - General 04/16/[address] [place] [address] documented as of this encounter
--- OUTSIDE RECORDS SUMMARY | 2022-05-20 09:34 | XMS_ITS | Encounter Summary ---
:1945 Author Organization [place] [address] Care Team Providers Name Role Phone Lovely Vicente MD Primary Care Provider Encounter Details Date Type Department Care Team Description 09/03/2017 Telephone Vascular Surgery at [facility] Ninfa Clark, [place] [address] Social History Tobacco Use Types Packs/Day [...] help with the discomfort of the change. Motor Equipment Sergeant told the VNA that I would ask [...] Cardiology Zulma Dolan MD [facility] [place], [place] [address] (Wo rk) 05/28/2022 Laboratory Appointment Lab 05/28/2022 Office Visit Cardiology Zulma Dolan MD [facility] [place] [address] Liz Poole PA [facility] [place] [address] 06/10/2022 Office Visit Dermatology Laura Scherer MD [facility] DR [address] [place], [place] [address] (Wo rk) documented as of this encounter Visit Diagnoses Not on filedocumented in this encounter Care Teams Professor Of Music Relationship Specialty Start Date End Date Lovely Vicente MD PCP - General 04/16/[address] [place] [address] [address] [facility] [address] [place] [address] documented as of this encounter
--- OUTSIDE RECORDS SUMMARY | 2022-05-20 09:34 | XMS_ITS | Encounter Summary ---
:1945 Author Organization [facility] [place] [address] Care Team Providers Name Role Phone Lovely Vicente MD Primary Care Provider Encounter Details Date Type Department Care Team Description 09/07/2017 Office Visit Endocrinology at [facility] Maria Ines Stallings of [facility] MD [place] [address] C[address] [phone] ENDOCRINOLOGY DEPT [place], [place] [address] Social History Tobacco Use Types [...] Dolan MD [facility] er Dr [place], [place] [address] (Wo rk) 05/28/2022 Laboratory Appointment Lab 05/28/2022 Office Visit Cardiology Zulma Dolan MD [facility] [place] [address] Liz Poole PA [facility] [place] [address] 06/10/2022 Office Visit Dermatology Laura Scherer MD [facility] ER DR [address] [place], [place] [address] (Wo rk) documented as of this encounter Visit Diagnoses Diagnosis Hx of papillary thyroid carcinoma Personal history of malignant neoplasm o f thyroid documented in this encounter Care Teams Aerial Crop Duster Relationship Specialty Start Date End Date Lovely Vicente MD PCP - General 04/16/15 [facility] [address] [place] [address] documented as of this encounter
--- OUTSIDE RECORDS SUMMARY | 2022-05-20 09:34 | XMS_ITS | Encounter Summary ---
:1945 Author Organization [facility] [place] [address] Care Team Providers Name Role Phone Lovely Vicente MD Primary Care Provider Reason for Visit Reason Comments Follow-up I'm having trouble with the VAC Encounter Details Date Type Department Care Team Description 08/26/2017 Office Visit Vascular Surgery at [facility], STEPHANIE Mercado Atheroembolism of foot, right; [facility] [place] [place] [address] Delayed surgical wound healing, initial encounter; [facility] VASCULAR SURG YEHUDA Acute on chronic systolic congestive hea rt failure ; [place], [place] [phone] Social History Tobacco Use Types Packs/Day Years [...] home and into the care of the [facility]. However, since discharge from [facility] [place] [place] he has had some difficulty with continuation [...] MD at [facility] MAIN OR Social Hx: Social History [...] Cardiology Zulma Dolan MD [facility] [place], [place] [address] (Wo rk) 05/28/2022 Laboratory Appointment Lab 05/28/2022 Office Visit Cardiology Zulma Dolan MD [facility] [place] [address] Liz Poole PA [facility] [place] [address] 06/10/2022 Office Visit Dermatology Laura Scherer MD [facility] DR [address] [place], [place] [address] (Wo rk) documented as of [...] Department: Vascular Surgery Lab VASCUBASE Report Patient: [id number] (GREGORY FATIMA) CPT: 31190 ICD10: T81.89XA;I75.021 Referring Physician: ARIK CLEMENT ?? [...] Signature Glucose Lvl 98 65 - 199 [facility] mg/dL [facility] LABORATORY Comment: [...] or in patients with acute kidney failure. http://Barosense/DHnkdep http://Barosense/DHMCnkf Specimen Anatomical Collection Method Collection Time Receive d Time (Source) Location / / Volume Laterality Blood specimen 08/26/2017 2:00 PM 018 2:15 (specimen) EST PM EST Resulting Agency Comment Spec In Lab Danette Maxwell WASTE HANDLING TECHNICIAN CHEMISTRY ORDERABLES Performing Organization Address City/[facility]/ZIP Code Phon e Number [address] (ABNORMAL) pro-Brain Natriuretic Peptide (08/26/2017 2:00 PM EST) P athologist Signature ProBNP 2,373 (H) <=125 [facility] pg/mL [facility] LABORATORY Specimen Anatomical Collection Method Collection Time Receive d Time (Source) Location / / Volume Laterality Blood specimen 08/26/2017 2:00 PM 018 2:15 (specimen) EST PM EST Resulting Agency Comment Spec In Lab Danette A Vaughn STACIE CHEMISTRY ORDERABLES Performing Organization Address City/[facility] [place] [address] documented in this encounter Visit Diagnoses Diagnosis Atheroembolism of foot, right Delayed surgical wound healing, initial encounter Acute on chronic systolic congestive hea rt failure Acute on chronic systolic heart failure Ischemic cardiomyopathy Other specified forms of chronic ischemi c heart disease documented in this encounter Care Teams Co Op Relationship Specialty Start Date End Date Lovely Vicente MD PCP - General 04/16/[address] [place] [address] documented as of this encounter
--- OUTSIDE RECORDS SUMMARY | 2022-05-20 09:34 | XMS_ITS | Encounter Summary ---
:1945 Author Organization [facility] [place] [address] Care Team Providers Name Role Phone Lovely Vicente MD Primary Care Provider Encounter Details Date Type Department Care Team Description 09/07/2017 Laboratory Appointment Lab 3L [facility] [place] [phone] Social History Tobacco Use Types Packs/Day Years [...] MD [facility] er [place], [place] [address] (Wo rk) 05/28/2022 Laboratory Appointment Lab 05/28/2022 Office Visit Cardiology Zulma Dolan MD [facility] [place] [address] Liz Poole PA [facility] [place] [address] 06/10/2022 Office Visit Dermatology Laura Scherer MD [facility] ER DR [address] [place], [place] [address] (Wo rk) documented as of this encounter [...] Thyroglobulin 1.4 <=54.9 [facility] ng/mL [facility] LABORATORY Comment: Thyroglobulin levels may be [...] Address City/State/[place] [address] TSH (09/07/2017 2:41 PM EST) athologist Signature TSH 3.93 0.27 - 4.20 [facility] Specimen Anatomical Collection Method Collection Time Receive d Time (Source) Location / / Volume Laterality Blood specimen 09/07/2017 2:41 PM 018 2:46 (specimen) EST PM EST Resulting Agency Comment Spec In Lab Luz Prescott MD CHEMISTRY ORDERABLES Performing Organization Address City/State/[place] [address] documented in this encounter Visit Diagnoses Diagnosis Hx of papillary thyroid carcinoma Personal history of malignant neoplasm o f thyroid documented in this encounter Care Teams Barrel Scraper Relationship Specialty Start Date End Date Lovely Vicente MD PCP - General 04/16/[address] [place] [address] documented as of this encounter
--- OUTSIDE RECORDS SUMMARY | 2022-05-20 09:34 | XMS_ITS | Encounter Summary ---
:1945 Author Organization [facility] [place] [address] Care Team Providers Name Role Phone Lovely Vicente MD Primary Care Provider Reason for Referral Diagnostic Test (Routine) - Closed Specialty Diagnoses / Procedures Referred By Contact Refer red To Contact Cardiology Diagnoses Ischemic cardiomyopathy Acute on chronic systolic congestive heart failure Danette Maxwell APRN [facility] Non-Inv Card Lab Procedures Echocardiogram Transthoracic(Leb) [facility] [place] [address] [place] [address] Referral ID Status Reason Start Date Expiration Date Visits V isits Requested Authorized [id number] Closed Specialty 08/30/2017 08/30/2018 1 1 Service Requested Encounter Details Date Type Department Care Team Description 08/26/2017 Office Visit Cardiology at [facility] Danette Maxwell Ischemic cardiomyopathy; [facility] STACIE Gomes Acute on chronic systolic congestive hea rt failure ; Drive [facility] ASCVD (arteriosclerotic card iovascular disease); [place], [place] PAF (paroxysmal atrial fibrillation); [id number] CARDIOLOGY PAD (peripheral artery disease) [phone] [place], [place] [address] Social History Tobacco Use Types Packs/Day Years [...] 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 [...] Cardiology Zulma Dolan MD [facility] [place], [place] [address] (Wo rk) 05/28/2022 Laboratory Appointment Lab 05/28/2022 Office Visit Cardiology Zulma Dolan MD [facility] [place] [address] Liz Poole PA [facility] [place] [address] 06/10/2022 Office Visit Dermatology Laura Scherer MD [facility] DR TE[address] GR[address]DERMAT OLOGY [place], [place] [address] (Wo rk) documented as of this encounter Results ECHOCARDIOGRAM COMPLETE W CONTRAST (10/07/2017 10:23 AM EDT) athologist Signature EF 45 HEART[facility] SYSTEM Anatomical Region Laterality Modality Other Specimen (Source) Anatomical Location Collection Method / Collectio n Time Received Time / Laterality Volume 10/07/2017 Narrative 10/07/2017 11:13 AM EDT Procedure: ?Transthoracic Echocardiogram Patient: ?NATALYA Mccollum ? (Age): 1945(72y) Med Rec#: ? [id number] ?Sex: ?M ? Site Loc: ? [facility] ?Ht / Wt: ??173(cm)/82(kg) Pt. Loc: ?Echo Lab ?BSA: ?1.96 Study Date: ?? 10/07/2017 ?Pt. Type: Outpatient Tape: ? Referring: Danette Maxwell Reading: Iker Cuevas ([id number]) Oil Pumper: Yonathan Bocanegra Diagnosis: *ICD-10-PCS Ischemic cardiomyopathy (I2 [...] E-wave Vmax ?1.2 ?m/sec ? MV deceleration [id number] ?msec ? MV A-wave Vmax ?1 ?m/sec [...] ? Mid-Inferior ?Hypokinetic ? Mid-Inferoseptal ?Hypokinetic ? [place]-Septal ? Akinetic ? [place]-Anterior ? Hypokinetic ? [place]-Lateral ?Hypokinetic ? [place]-Inferior ? Hypokinetic ? [place]-Tip ?Akinetic ? This report has been electronically sign ed by: _ Iker Cuevas M.D. ? 10/07/2017 11:12:34 Images reviewed and interpretation [facility] Cardiac Ultrasound Laboratory Procedure Note Iker Cuevas MD - 10/07/2017Formatti ng of this note might be different from the original. Procedure: Transthoracic Echocardiogram Patient: NATALYA Mccollum (Age): [birth year]72y) Med Rec#: [id number] Sex: M Site Loc: [facility] Ht / Wt: 173(cm)/82(kg) Pt. Loc: Echo Lab BSA: 1.96 Study Date: 10/07/2017 Pt. Type: Outpati ent Tape: Referring: Danette Maxwell Reading: Iker Cuevas ([id number]) Oil Pumper: Yonathan Bocanegra Diagnosis: *ICD-10-PCS Ischemic cardiomyopathy (I2 [...] MV E-wave Vmax 1.2 m/sec MV deceleration [id number] msec MV A-wave Vmax 1 m/sec MV [...] Akinetic Mid-Posterolateral Hypokinetic Mid-Inferior Hypokinetic Mid-Inferoseptal Hypokinetic [place]-Septal Akinetic [place]-Anterior Hypokinetic [place]-Lateral Hypokinetic [place]-Inferior Hypokinetic [place]-Tip Akinetic This report has been electronically sign ed by: _ Iker Cuevas M.D. 10/07/2017 11:12 :34 Images reviewed and interpretation [facility] Cardiac Ultrasound Laboratory Danette Maxwell APRN ECHO ORDERABLES Basic Metabolic Panel (non-fasting) (08/26/2017 2:00 PM EST) P athologist Signature Glucose Lvl 98 65 - 199 [facility] mg/dL [facility] [...] [facility] Estimated GFR >60 >=60 [facility] Comment: The reported eGFR should be multiplied b y 1.2 for patients. The MDRD is not an appropriate measure o f renal function for patients with body mass extremes or in patients with acute kidney failure. http://[employer]/DHnkdep http://[employer]/DHMCnkf Specimen Anatomical Collection Method Collection Time Receive d Time (Source) Location / / Volume Laterality Blood specimen 08/26/2017 2:00 PM 018 2:15 (specimen) EST PM EST Resulting Agency Comment Spec In Lab Danette Maxwell APRN CHEMISTRY ORDERABLES Performing Organization Address City/State/ZIP Code Phon e Number [address] (ABNORMAL) pro-Brain Natriuretic Peptide (08/26/2017 2:00 PM EST) P athologist Signature ProBNP 2,373 (H) <=125 [facility] R[facility]AN pg/mL [facility] Specimen Anatomical Collection Method Collection Time Receive d Time (Source) Location / / Volume Laterality Blood specimen 08/26/2017 2:00 PM 018 2:15 (specimen) EST PM EST Resulting Agency Comment Spec In Lab Danette Maxwell APRN CHEMISTRY ORDERABLES Performing Organization Address City/State/[place] [address] documented in this encounter [...] documented in this encounter Care Teams Rail Loader Relationship Specialty Start Date End Date Lovely Vicenet MD PCP - General 04/16/[address] [place] [address] documented as of this encounter
--- OUTSIDE RECORDS SUMMARY | 2022-05-20 09:34 | XMS_ITS | Encounter Summary ---
:1945 Author Organization [facility] [place] [address] Care Team Providers Name Role Phone Lovely Vicente MD Primary Care Provider Encounter Details Date Type Department Care Team Description 08/19/2017 Hospital Encounter XRay at [facility] Martha Teague, S/P CABG x [address] [facility] [place] [address] [place] [address] RD [phone] [facility] [place], [place] [address] (Wo rk) Social History [...] Zulma Dolan MD [facility] [place], [place] [address] (Wo rk) 05/28/2022 Laboratory Appointment Lab 05/28/2022 Office Visit Cardiology Zulma Dolan [place] [address] Liz Poole PA [facility] [place] [address] 06/10/2022 Office Visit Dermatology Laura Scherer MD [facility] DR [address] OLOGY [place], [place] [address] (Wo rk) documented as [...] 2017 EXAMINATION: XR CHEST PA AND LATERAL ([employer]) CLINICAL HISTORY: CABG x 3 TECHNIQUE: PA [...] status documented in this encounter Care Teams Lighting Engineering Technician Relationship Specialty Start Date End Date Lovely Vicente MD PCP - General 04/16/[address] [place], [place] [address]Y [facility] [address] [place] [address] documented as of this encounter
--- OUTSIDE RECORDS SUMMARY | 2022-05-20 09:34 | XMS_ITS | Encounter Summary ---
:1945 Author Organization [facility] [place] [address] Care Team Providers Name Role Phone Lovely Vicente MD Primary Care Provider Encounter Details Date Type Department Care Team Description 08/19/2017 Office Visit Vascular Surgery at [place], PAD (peripheral artery [facility] HOSPICE MANAGER disease) [facility] [address] [place], [place] VASCULAR SURGERY [address] [place] [address] [phone] Social History Tobacco Use Types Packs/Day Years [...] Cardiology Zulma Dolan MD [facility] [place], [place] [address] (Wo rk) 05/28/2022 Laboratory Appointment Lab 05/28/2022 Office Visit Cardiology Zulma Dolan MD [facility] [place] [address] Liz Poole PA [facility] [place] [address] 06/10/2022 Office Visit Dermatology Laura Scherer MD [facility] DR [address]-DERMAT [place], [place] [address] (Wo rk) documented as of this encounter Visit Diagnoses Diagnosis PAD (peripheral artery disease) Peripheral vascular disease, unspecified documented in this encounter Care Teams Longwall Headgate Operator Relationship Specialty Start Date End Date Lovely Vicente MD PCP - General 04/16/[address] [place] [address] documented as of this encounter
--- OUTSIDE RECORDS SUMMARY | 2022-05-20 09:34 | XMS_ITS | Encounter Summary ---
:1945 Author Organization [facility] [place] [address] Care Team Providers Name Role Phone Lovely Vicente MD Primary Care Provider Reason for Visit Reason Onset Date Comments VNA Calls 08/30/2017 Encounter Details Date Type Department Care Team Description 08/30/2017 Telephone Vascular Surgery at [facility] Cora Reid RN VNA Calls [facility] [place] [address] Social History Tobacco Use Types Packs/Day [...] 08/30/2017 11:16 AM EST Caller: Alfonso at [facility] [phone] Reason for call: Changing his wound vac [...] Alfonso who had been in contact with [facility]'s Wound Care Nurse who advised him [...] Zulma Dolan MD [facility] [address] [place], [place] [address] (Wo rk) 05/28/2022 Laboratory Appointment Lab 05/28/2022 Office Visit Cardiology Zulma Dolan MD [facility] [place] [address] Liz Poole PA [facility] [place] [address] 06/10/2022 Office Visit Dermatology Laura Scherer MD [facility] [address] O[place], [place] [address] (Wo rk) documented as of this encounter Visit Diagnoses Not on filedocumented in this encounter Care Teams Supervisor Mill Relationship Specialty Start Date End Date Lovely Vicente MD PCP - General 04/16/[address] [place] [address] documented as of this encounter
--- OUTSIDE RECORDS SUMMARY | 2022-05-20 09:34 | XMS_ITS | Encounter Summary ---
:1945 Author Organization [facility] [place] [address] Care Team Providers Name Role Phone Lovely Vicente MD Primary Care Provider Encounter Details Date Type Department Care Team Description 08/26/2017 Hospital Encounter Vascular Lab at [facility], Athero embolism of foot, right; [place], [place] Delayed surgi nusrat wound healing, [place] [id number] Social History Tobacco Use Types Packs/Day Years [...] Dolan MD [facility] Dr [place], [place] [address] (Wo rk) 05/28/2022 Laboratory Appointment Lab 05/28/2022 Office Visit Cardiology Zulma Dolan MD [facility] [place] [address] Liz Poole PA [facility] [place] [address] 06/10/2022 Office Visit Dermatology Laura Scherer MD [facility] DR TEJA GR-DERMAT OLOGY [place], [...] Department: Vascular Surgery Lab VASCUBASE Report Patient: [id number] (DON HOANG) CPT: 37163 ICD10: T81.89XA;I75.021 Referring Physician: ELVER BLOOM ?? [...] encounter documented in this encounter Care Teams Cage/Vault Supervisor Relationship Specialty Start Date End Date Lovely Vicente MD PCP - General 04/16/[address] [place] [address] documented as of this encounter
--- OUTSIDE RECORDS SUMMARY | 2022-05-20 09:34 | XMS_ITS | Encounter Summary ---
:1945 Author Organization [facility] [place] [address] Care Team Providers Name Role Phone Lovely Vicente MD Primary Care Provider Encounter Details Date Type Department Care Team Description 08/30/2017 [facility] ischemia [facility] [address] [place], [place] VASCULAR SURGERY [address] [place] [address] [phone] Social History Tobacco Use Types Packs/Day Years [...] Smith MD - 08/30/2017 2:00 PM EST [facility] staff: Patient returns. He is [...] Dolan MD [facility] [address] [place], [place] [address] (Wo rk) 05/28/2022 Laboratory Appointment Lab 05/28/2022 Office Visit Cardiology Zulma Dolan MD [facility] [place] [address] Liz Poole PA [facility] [place] [address] 06/10/2022 Office Visit Dermatology Laura Scherer MD [facility] DR [address] [place]LOG[place], [place] [address] (Wo rk) documented as of this encounter Visit Diagnoses Diagnosis Critical lower limb ischemia Unspecified circulatory system disorder documented in this encounter Care Teams Senior Net Application Developer Relationship Specialty Start Date End Date Lovely Vicente MD PCP - General 04/16/[address] [place] [address] documented as of this encounter
--- OUTSIDE RECORDS SUMMARY | 2022-05-20 09:34 | XMS_ITS | Encounter Summary ---
:1945 Author Organization [facility] [place] [place] [address] Care Team Providers Name Role Phone Lovely Vicente MD Primary Care Provider Reason for Referral Consultation (Routine) - Specialty Diagnoses / Procedures Referred By Contact Refer red To Contact Wound Healing Center Diagnoses Atheroembolism of foot, right Delayed surgical wound healing, subsequent encounter Aurelia Rivera PA [address] [facility] [place] [address] Referral ID Status Reason Start Date Expiration Date Visits V isits Requested Authorized [id number] Consult, 09/08/2017 03/07/2018 1 1 Test & Treat Reason for Visit Reason Comments Wound Check My foot hurts Encounter Details Date Type Department Care Team Description 09/07/2017 Office Visit Vascular Surgery at MiguelAurelia PA Atheroembolism of foot, right; [facility] Delayed surgical wound healing, subseque nt encounter [facility] [place] [address] [phone] Social History Tobacco Use Types Packs/Day Years [...] at home for VAC dressing changes from [facility]. Since his last visit his right forefoot wound VAC care has improved and [facility] have maintained a better seal [...] [facility] ??? PRO AMPUTATION FOOT, TRANSMETATARSAL Right 08/09/2017 AMPUTATION, TRANSMETATARSAL (WRVU 12.71) performed by Yonathan Smith MD at [facility] MAIN OR ??? PRO CABG, ARTERIAL, SINGLE N/A 07/07/2017 @CABG, USING ARTERIAL GRAFT;SINGLE ARTERIAL GRAFT (WRVU 33.75) performed by Yuan Retana MD at [facility] MAIN OR ??? PRO CABG, ARTERY-VEIN, TWO N/A 07/07/2017 @CABG, TWO VENOUS GRAFTS & ARTERIAL GRAFT (WRVU 7.93) performed by Yuan Retana MD at [facility] MAIN OR ??? PRO COLONOSCOPY, REMV LESN, SNARE 01/16/2014 COLONOSCOPY, POLYPECTOMY, REMOVAL LESION BY SNARE performed by Nohemi Jaimes MD at [facility] ENDOSCOPY ??? PRO DRESSING CHANGE UNDER ANESTHESIA Right 08/11/2017 (MSURG) DRESSING CHANGE (FOR OTHER THAN IVAN) UNDER ANES. (WRVU 0.86) performed by Lamar Smith MD at [facility] MAIN OR ??? PRO ENDOSCOPY W/VIDEO-ASST VEIN HARVEST, CABG Right 07/07/2017 ENDOSCOPIC HARVEST VEIN(S) FOR CABG (WRVU 0.31) performed by Yuan Retana MD at [facility] MAIN OR ??? PRO THYROIDECTOMY 03/28/2013 THYROIDECTOMY, TOTAL OR COMPLETE performed by Manny Mcknight MD at [facility] OR Social Hx: Social History Substance [...] Zulma Dolan MD [facility] [place], [place] [address] (Wo rk) 05/28/2022 Laboratory Appointment Lab 05/28/2022 Office Visit Cardiology Zulma Dolan MD [facility] [place] [address] Liz Poole PA [facility] [place] [address] 06/10/2022 Office Visit Dermatology Laura Scherer MD [facility] [address] OLOG[address] [place], [place] [address] (Wo rk) Scheduled Referrals Name Type Priority Associated Diagnoses Order S chedule Referral to Wound Outpatient Referral Routine Atheroembolism o f foot, Ordered: Clinic right 09/08/2017 Delayed surgical wound healing, subsequent encounter documented as of this encounter Visit Diagnoses Diagnosis Atheroembolism of foot, right Delayed surgical wound healing, subseque nt encounter documented in this encounter Care Teams Manager Cargo Relationship Specialty Start Date End Date Lovely Vicente MD PCP - General 04/16/[address] [facility] 1 [place] [address] documented as of this encounter
--- OUTSIDE RECORDS SUMMARY | 2022-05-20 09:34 | XMS_ITS | Encounter Summary ---
:1945 Author Organization [place] [address] Care Team Providers Name Role Phone Lovely Vicente MD Primary Care Provider Encounter Details Date Type Department Care Team Description 08/25/2017 Telephone Pain Management at [facility] [place], [place] [address] Social History Tobacco Use Types Packs/Day [...] Management Center Preauthorization Request Patient: Don Fatima [id number] Fax received from [employer] denying prior authorization for Lidocaine Patches prescribed by Barbra Soares APRN. RX insurance plan: [employer] RX insurance telephone: [phone] Patient Diagnosis: right foot pain secondary to PVD and ischemia ? Previous medications attempted: Tylenol, Tramadol, Dilaudid Authorization/Reference number: [id number] _x_ denied, provider and patient informed _x_ appeal initiated by provider, patient informed Angeles Rodrigez, RN documented in this encounter Plan of Treatment Upcoming Encounters Date Type Specialty Care Team Description 05/28/2022 Appointment Cardiology Zulma Dolan MD [facility] [place], [place] [address] (Wo rk) 05/28/2022 Laboratory Appointment Lab 05/28/2022 Office Visit Cardiology Zulma Dolan MD [facility] [place] [address] Liz Poole PA [facility] [place] [address] 06/10/2022 Office Visit Dermatology Laura Scherer MD [facility] [address] [place], [place] [address] (Wo rk) documented as of this encounter Visit Diagnoses Not on filedocumented in this encounter Care Teams Bridge Mechanic Relationship Specialty Start Date End Date Lovely Vicente MD PCP - General 04/16/[address] [place] [address] documented as of this encounter
--- OUTSIDE RECORDS SUMMARY | 2022-05-20 09:34 | XMS_ITS | Encounter Summary ---
:1945 Author Organization [facility] [place] [address] Care Team Providers Name Role Phone Lovely Vicente MD Primary Care Provider Reason for Visit Reason Comments Follow-up Encounter Details Date Type Department Care Team Description 08/19/2017 Office Visit Cardiac Surgery at [place], Jock S/P C ABG (coronary [facility] N, artery bypass graft) [facility] [place] CARDIOTHORACIC [address] SURGERY [phone] [place], [place] [address] Social History Tobacco Use [...] office. Best personal regards, Yuan Retana MD [phone] documented in this encounter Plan of Treatment Upcoming Encounters Date Type Specialty Care Team Description 05/28/2022 Appointment Cardiology Zulma Dolan MD [facility] [place] [address] [place] [address] (Wo rk) 05/28/2022 Laboratory Appointment Lab 05/28/2022 Office Visit Cardiology Zulma Dolan MD [facility] [place] [address] Liz Poole PA [facility] [place] [address] 06/10/2022 Office Visit Dermatology Laura Scherer MD [facility] ER DR [address]JA GR[address] [place] [address] (Wo rk) documented as of this encounter [...] 454 ms MUSE SYSTEM (Bezet) Calculated P [place] 20 degrees MUSE SYSTEM Calculated R [place] -29 degrees MUSE SYSTEM Calculated T [place] 121 degrees MUSE SYSTEM INTERPRETATION Normal sinus rhythm MUSE SYSTEM Inferior 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
--- OUTSIDE RECORDS SUMMARY | 2022-05-20 09:34 | XMS_ITS | Encounter Summary ---
:1945 Author Organization [facility] [place] [address] Care Team Providers Name Role Phone Lovely Vicente MD Primary Care Provider Encounter Details Date Type Department Care Team Description 09/06/2017 Telephone Vascular Surgery at [facility] Ninfa Clark, [place] [address] Social History Tobacco Use Types Packs/Day [...] Cardiology Zulma Dolan MD [facility] [place], [place] [address] (Wo rk) 05/28/2022 Laboratory Appointment Lab 05/28/2022 Office Visit Cardiology Zulma Dolan MD [facility] [place] [address] Liz Poole PA [facility] [place] [address] 06/10/2022 Office Visit Dermatology Laura Scherer MD [facility] DR [address] [place], [place] [address] (Wo rk) documented as of this encounter Visit Diagnoses Not on filedocumented in this encounter Care Teams Boom Man Relationship Specialty Start Date End Date Lovely Vicente MD PCP - General 04/16/[address] [place] [address] documented as of this encounter
--- OUTSIDE RECORDS SUMMARY | 2022-05-20 09:35 | XMS_ITS | Encounter Summary ---
:1945 [place] [address] Care Team Providers Name Role Phone Lovely Vicente MD Primary Care Provider Reason for Visit Auth/Cert Specialty Diagnoses / Procedures Referred By Contact Refer red To Contact Diagnoses Critical lower limb ischemia CELLULITIS RT FOOT Procedures EMERGENCY Referral ID Status Reason Start Date Expiration Date Visits Requ ested Visits Authorized [id number] 1 1 Encounter Details Date Type Department Care Team Description 08/06/2017 - Hospital Encounter 5 Yonathan Oneill lower limb ischemia; 08/16/2017 Su Flores MD Ischemic foot Hospital [facility] [address] [facility] [place] [phone] Social History Tobacco Use Types Packs/Day Years [...] 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 Patient [...] Dorsalis Pedis (Ankle) Artery ?132 ? 0.94 ??[place]-Biphasic ? Posterior Tibial (Ankle) Artery ??154 ? 1.10 ??[place]-Biphasic ? Fourth Toe ? 67 ?0.48 ?? [...] the foot. Discharge Conditions/Prognosis: Good Discharge to: [facility] Rehab Discharge Medications: Your Medications New [...] For any problems or questions please call [phone] ZELDA Smith, coin purse framer Nurse Clinician For issues on weeknights after 5pm and weekends please call [phone] and ask for the Vascular Fellow on site coordinator. General Instructions None Future Appointments and Orders Future Appointments Provider Department Dept Phone 08/26/2017 4:00 PM Aurelia Rivera PA [facility] [place] [phone] 09/07/2017 3:00 PM LAB, THREE L Lab 3L [facility] [phone] 09/07/2017 4:00 PM Luz Prescott MD Endocrinology [facility] [place] [phone] 09/09/2017 8:00 AM Barbra Soares APRN Pain Management [facility] [place] [phone] Please bring a list of your current [...] For any problems or questions please call [phone] ZELDA Smith, coin purse framer Nurse Clinician For issues on weeknights after 5pm and weekends please call [phone] and ask for the Vascular Fellow on site coordinator. documented in this encounter Medications at [...] Discharge Note Patient Destination: [facility] ([facility]) [address] [place] [address] Transportation: with (at bedside) Time of Discharge: by 12 noon Level of Care: swing Patient Aware: yes Family Notified: yes Md to call report to: Yissel Quintero BIN TRIPPER OPERATOR already called RN to call report to: [phone] Shirin Wolf Office of Care Management Pager [phone] Shirin Wolf RN - 08/16/2017 10:50 AM EST [facility] has offered pt swing bed. Pt and accept bed. will transport via car. BIN TRIPPER OPERATOR Yissel Quintero aware; d/c paperwork will be completed by 12 noon. [facility] requests pt arrival by 1400 today; BIN TRIPPER OPERATOR, RN, and family aware. BIN TRIPPER OPERATOR called [facility] and was told that they prefer pt to arrive with wound vac dressing applied but clamped. BIN TRIPPER OPERATOR applied new wound vac dressing. RN has [facility] number to call report. PASSR completed; BIN TRIPPER OPERATOR paged to request provider signature in highlighted space. Indigo from [facility] notified via email that home wound vac now cancelled; [facility] has picked up from room and order cancelled. Packet started and provided to unitizer. Medicare important message explained to patient, patient signed. Copy provided to patient and signature page to OCM for inclusion in pt EMR. Radha Georges - 08/16/2017 10:34 AM EST Office of Care Management/Check Writing Machine Operator Patient Name: Gregory Hoang : 1945 Patient has been offered a swing bed at [facility]. The patient will be transported by private transportation. No MD to MD report necessary Please call Nursing Report to [phone], ask for bead stringer. Info to accompany patient: Narcotic Prescriptions Copies of Medication Administration Records and IV sheets for past 10 days. Plan: Check Writing Machine Operator will be available to the patient and Cold Roll Operator-RN and/or Interactive Multimedia Designer for further assistance. Patient will be discharged to: [place] [id number] Radha Powers, Check Writing Machine Operator Mira Black, VAMSI - 08/15/2017 10:05 PM EST [address] Flores to ask if he wanted to hold metoprolol dose. BP 95/58. OK to hold this dose Courtney Brito - 08/15/2017 3:26 PM EST Office of Care Management(OCM)/Check Writing Machine Operator(RS)/ D/C Planning re : Patient is medically ready for d/c today. RS has been in contact with [facility] to see if they could offer a bed. [facility] is still reviewing the case and need their MD to review chart prior to accepting or declining. OCM team needs to check in with [facility] tomorrow to check on status. CM Notified RS: Courtney Suazo Pager [phone] Viry Weir MD - 08/15/2017 10:01 AM EST Vascular Surgery Progress Note ID: Gregory Hoang is a 72 y.o. 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 Vac in [...] patient's referral to: [facility] PHONE: [phone] FAX: [phone] CM spoke with RS who said that [...] rehab. Await recommendations from PT. Covering pager #[phone]. 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 Photoengraving Proofer Kaitlin Saha, RN Pager #[phone] Payam Rosales - 08/13/2017 2:37 PM EST Prevention Rn Encounter Note Patient Name: Gregory Hoang : [id number] MR#: [id number] Admit Date: 08/06/2017 1:41 PM Hospital Day 7 days Narrative: Visited to introduce and assess acceptance of Prevention Rn services. Pt was awake, alert, oriented and in chair and family was there. Assessment:Patient coping positively with stresses of illness/hospitalization at this time. Pt says that he is hoping to get better and his family was there. Pt says that he has family care and supportand taking one day at time. Intervention and Outcome: Provided emotional support and encouraging presence. 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 A letter describing our affiliations was reviewed with them and theywere educated about their right to choose where referrals are placed. Patient requests referral to [facility]. PHONE: [phone] FAX: [phone]. And Home NPWT (Negative Pressure Wound Therapy) aka wound vac device made available to pt. Serial # confirmed. Reviewed [facility] Proof of Delivery/Assignment of Benefits Statement(POD/AOB) Form w patient or authorized agent signing on behalf of patient. Copy of POD/AOB provided to pt and other copy faxed to [employer] @ fax# [phone] Expected date of discharge: 08/12/2017. 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 Address: [address] [place] [address] [place] [address] (home) Mobile: Telephone Information: Referring Provider: No [...] SETUP performed by Manny Mcknight MD at [facility] MAIN OR ??? PRO CABG, ARTERIAL, SINGLE N/A 07/07/2017 @CABG, USING ARTERIAL GRAFT;SINGLE ARTERIAL GRAFT (WRVU 33.75) performed by Yuan Retana MD at [facility] MAIN OR ??? PRO CABG, ARTERY-VEIN, TWO N/A 07/07/2017 @CABG, TWO VENOUS GRAFTS & ARTERIAL GRAFT (WRVU 7.93) performed by Yuan Retana MD at [facility] MAIN OR ??? PRO COLONOSCOPY, REMV LESN, SNARE 01/16/2014 COLONOSCOPY, POLYPECTOMY, REMOVAL LESION BY SNARE performed by Nohemi Jaimes MD at [facility] ENDOSCOPY ??? PRO ENDOSCOPY W/VIDEO-ASST VEIN HARVEST, CABG Right 07/07/2017 ENDOSCOPIC HARVEST VEIN(S) FOR CABG (WRVU 0.31) performed by Yuan Retana MD at [facility] MAIN OR ??? 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 Address: [address] [place] [address] [place] [address] (home) Mobile: Telephone Information: Referring Provider: No [...] SETUP performed by Manny Mcknight MD at [facility] MAIN OR ??? PRO CABG, ARTERIAL, SINGLE N/A 07/07/2017 @CABG, USING ARTERIAL GRAFT;SINGLE ARTERIAL GRAFT (WRVU 33.75) performed by Yuan Retana MD at [facility] MAIN OR ??? PRO CABG, ARTERY-VEIN, TWO N/A 07/07/2017 @CABG, TWO VENOUS GRAFTS & ARTERIAL GRAFT (WRVU 7.93) performed by Yuan Retana MD at [facility] MAIN OR ??? PRO COLONOSCOPY, REMV LESN, SNARE 01/16/2014 COLONOSCOPY, POLYPECTOMY, REMOVAL LESION BY SNARE performed by Nohemi Jaimes MD at [facility] ENDOSCOPY ??? PRO ENDOSCOPY W/VIDEO-ASST VEIN HARVEST, CABG Right 07/07/2017 ENDOSCOPIC HARVEST VEIN(S) FOR CABG (WRVU 0.31) performed by Yuan Retana MD at [facility] MAIN OR ??? PRO THYROIDECTOMY 03/28/2013 THYROIDECTOMY, TOTAL OR COMPLETE performed by Manny Mcknight MD at [facility] MAIN OR Date/Procedure Meds given/comments [...] 1000- Pt terrance sips of H2O. 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 Vascular resident on site coordinator and will forward result to the team prior to rounds. 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 Patient [...] SETUP performed by Manny Mcknight MD at [facility] MAIN OR ??? PRO CABG, ARTERIAL, SINGLE N/A 07/07/2017 @CABG, USING ARTERIAL GRAFT;SINGLE ARTERIAL GRAFT (WRVU 33.75) performed by Yuan Retana MD at [facility] MAIN OR ??? PRO CABG, ARTERY-VEIN, TWO N/A 07/07/2017 @CABG, TWO VENOUS GRAFTS & ARTERIAL GRAFT (WRVU 7.93) performed by Yuan Retana MD at [facility] MAIN OR ??? PRO COLONOSCOPY, REMV LESN, SNARE 01/16/2014 COLONOSCOPY, POLYPECTOMY, REMOVAL LESION BY SNARE performed by Nohemi Jaimes MD at [facility] ENDOSCOPY ??? PRO ENDOSCOPY W/VIDEO-ASST VEIN HARVEST, CABG Right 07/07/2017 ENDOSCOPIC HARVEST VEIN(S) FOR CABG (WRVU 0.31) performed by Yuan Retana MD at [facility] MAIN OR ??? PRO THYROIDECTOMY 03/28/2013 THYROIDECTOMY, TOTAL OR COMPLETE performed by Manny Mcknight MD at [facility] MAIN OR Functional Status/Social Hx: [...] blue toes with CTA showing R FIELD ARTILLERY SENIOR SERGEANT pseudoaneurysm (now thrombosed) and occluded ATs bilaterally. [...] 5. Completion RLE angiogram 6. L FIELD ARTILLERY SENIOR SERGEANT angiogram 7. 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 - L FIELD ARTILLERY SENIOR SERGEANT angriogram demonstrated: High femoral bifurcation over the proximal half of the femoral head. L FIELD ARTILLERY SENIOR SERGEANT access in the distal L FIELD ARTILLERY SENIOR SERGEANT. - Closure device: Mynx Technical Procedure: The [...] for a 45cm 5F Destination. V18 and Clayton and QuickCross catheters were used to select [...] A stationed picture of the L FIELD ARTILLERY SENIOR SERGEANT was performed as the patient was noted to have a very high bifurcation. Access appeared in the distal R FIELD ARTILLERY SENIOR SERGEANT. Closure and sheath removal was performed with [...] PM EST 1440 report called to 5 [place] nurse Tessa AGUSTIN documented in this encounter [...] with pt and pt's spouse. Discharge to [facility]. Goal: Individualization & Mutuality Outcome: Outcome [...] sit/sit to supine -- Bed Mobility Goal, [place] Level independent -- Bed Mobility Goal, Date [...] days -- Transfer Training Goal, Activity Type ver-af-ypdij/ogpwf-sv-lhg -- Transfer Train Goal, [place] Level conditional independence -- Transfer Train Goal, [...] call cabello within reach, Hourly rounding by RN/DIET TECHNICIAN REGISTERED. Bed alarm / Chair alarm. Patient-specific fall [...] - 08/15/2017 6:28 PM EST [facility] Operative Note Patient Name: Gregory Hoang : [id number] MR#: [id number] Case Date: 08/09/2017 Surgeon: Surgeon(s) and Role: [...] 5. Completion RLE angiogram 6. L FIELD ARTILLERY SENIOR SERGEANT angiogram 7. Mynx closure Precautions/Restrictions: fall, sternal [...] other (see comments) (or swing bed) Pager: [phone] BASSAM ELIAS, PT 08/14/2017 Inpatient Physical Therapy [...] to Achieve by discharge Gait Training Goal, [place] Level conditional independence;set up required Gait Training [...] these facilities over the weekend except for [facility]. CM spoke with [facility] CM Drea Sandhu, VAMSI who said that they do not anticipate any beds over the weekend. Reviewed with patient/ that they need to be aware that patient will need to take the first bed offered at the facilities that they make referrals to. Their choices are: 1- [facility] PHONE: [phone] FAX: [phone] 2- [facility] ([facility]) [address] [place] [address] 3- [facility]) [address] [place] [address] I have discussed Medicare/Private Insurance [...] RS/CM on Wednesday to follow-up. Covering pager #[phone] for today. Plan of Care - Henrique [...] additional findings of pseudoaneurysm on R FIELD ARTILLERY SENIOR SERGEANT and bilateral anterior tibial artery occlusions. Was [...] TTE. The IABP was in good position. AVELION was used to facilitate CS cannulation. 3. [...] an outpatient once discharged. Have patient call [phone] to set up an appointment. Follow-up: Dermatology will sign-off for now. Please do not hesitate to contact us if you have any questions orconcerns. Impression and Recommendations discussed with primary team on 08/13/2017. Karo Henderson MD Resident in Dermatology Section of Dermatology, Department of Surgery [facility] Pager [phone] Patient seen and evaluated with staff Clearance Coordinator: Halima Cordero MD Section of Dermatology [facility] Level of Resident Supervision: Direct [...] 5. Completion RLE angiogram 6. L FIELD ARTILLERY SENIOR SERGEANT angiogram 7. Mynx closure Active Non-Hospital Problems [...] home with home health ([facility] PT[facility]OT) Pager: [phone] YASIR TELLO OT 08/12/2017 Occupational Therapy Rehabilitation [...] 5. Completion RLE angiogram 6. L FIELD ARTILLERY SENIOR SERGEANT angiogram 7. Mynx closure Past Medical History: [...] with 24/7 assistance and maximal services) Pager: [phone] NICHOLAS MORA, PT 08/12/2017 Physical Therapy Rehabilitation [...] sit/sit to supine -- Bed Mobility Goal, [place] Level independent -- Bed Mobility Goal, Outcome Achieved -- goal ongoing Goal: Gait Training Goal Stand Alone Therapy Goal Outcome: Ongoing (Interventions Implemented as Appropriate) 08/11/17 1310 08/12/17 1510 Gait Training Goal Gait Training Goal, Date Established 08/11/17 -- Gait Training Goal, Time to Achieve 5 - 7 days -- Gait Training Goal, [place] Level conditional independence -- Gait Training Goal, [...] days -- Transfer Training Goal, Activity Type kck-dp-uwvuo/wrlmb-ko-ocg -- Transfer Train Goal, [place] Level conditional independence -- Transfer Training Goal, [...] - 08/11/2017 2:52 PM EST [facility] Operative Note Patient Name: Gregory Hoang : [id number] MR#: [id number] Case Date: 08/11/2017 Surgeon: Surgeon(s) and Role: [...] toe syndrome (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 Completion RLE angiogram 6. L FIELD ARTILLERY SENIOR SERGEANT angiogram 7. Mynx closure He is very [...] Anticipated Discharge Disposition: inpatient rehabilitation facility Pager: [phone] LAWRENCE GONZALEZ, PT 08/11/2017 Physical Therapy Rehabilitation [...] to sit/sit to supine Bed Mobility Goal, [place] Level independent Goal: Gait Training Goal Stand Alone Therapy Goal Outcome: Ongoing (Interventions Implemented as Appropriate) 08/11/17 1310 Gait Training Goal Gait Training Goal, Date Established 08/11/17 Gait Training Goal, Time to Achieve 5 - 7 days Gait Training Goal, [place] Level conditional independence Gait Training Goal, Assist [...] 7 days Transfer Training Goal, Activity Type eje-pc-srksa/aohfj-gn-rzz Transfer Train Goal, [place] Level conditional independence Plan of [facility] Annetta Sandoval RN - 08/11/2017 7:21 AM [...] call cabello within reach, Hourly rounding by RN/DIET TECHNICIAN REGISTERED. Bed alarm / Chair alarm. ? Patient-specific [...] Within the Past 30 Days: [facility] 07/20/2017 Anticipated Length Of Stay (If known): Expected Length of Hospitalization: 5-7 days2-3 days Current Decision-Making Capacity: Alert and oriented x 4 Advance Care Planning: on file Kisha Hoang [facility] [phone] Current Coping/Education/Information Needs: pt and spouse state [...] Health/Prescription Coverage: Primary Insurance: MEDICARE Secondary Insurance: Click Contact [facility] Prescription Coverage: See above Preferred Pharmacy: [facility] Other: N/A Primary Care Provider: Lovely Vicente MD [phone] Patient/Caregiver Goals of Treatment: Patient plans to [...] of care planning. Kaitlin Saha RN Pager: [phone] Plan of Care - Melba Jaramillo RN [...] Overview Goal: Plan of Care Review 08/08/17 4484 Coping/Psychosocial Plan Of Care Reviewed With patient [...] call cabello within reach, Hourly rounding by RN/DIET TECHNICIAN REGISTERED. Bed alarm / Chair alarm. Patient-specific fall [...] at bedside and MD TEAM Carrying pager [phone] contacted (via Radio page) and notified of [...] Zulma Dolan MD [facility] [place], [place] [address] (Wo rk) 05/28/2022 Laboratory Appointment Lab 05/28/2022 Office Visit Cardiology Zulma Dolan MD [facility] [place] [address] Liz Poole PA [facility] [place] [address] 06/10/2022 Office Visit Dermatology Laura Scherer MD [facility] [address] [facility] [place], [place] [address] (Wo rk) documented as [...] Signature POC Glucose 160 65 - 199 [facility] mg/dL [facility] Comment: Supplemental ranges: <140 mg/dL before meals <180 mg/dL all other times of the day Specimen Anatomical Collection Method Collection Time Receive d Time (Source) Location / / Volume Laterality Blood specimen 08/16/2017 7:28 AM 018 7:28 (specimen) EST AM EST Yonathan Smith MD POINT OF CARE TEST ORDERABLE S Performing Organization Address City/State/[place] [address] (ABNORMAL) Differential, Automated (08/16/2017 5:08 AM EST) [facility] Method Time Signature Neutrophils % 73.9 % [facility] Neutr Abs (ANC) 5.37 1.70 - [facility] 6.[address] [facility] x10(3)/[facility] LABORATORY Lymphocytes % 10.1 % [facility] Lymphocytes Abs 0.7 (L) 0.9 - 3.2 [facility] x10(3)/[facility] LABORATORY Monocytes % 10.1 % [facility] Monocyte Abs 0.7 0.3 - 0.9 [facility] x10(3)/[facility] LABORATORY Eosinophils % 5.1 % [facility] Eosinophils Abs 0.4 0.0 - 0.4 [facility] x10(3)/[facility] LABORATORY Basophils % 0.4 % [facility] Basophils Abs 0.0 0.0 - 0.1 [facility] x10(3)/[facility] LABORATORY [...] 0.00 - 0.04 x10(3)/[facility] LABORATORY Specimen Anatomical Collection Method Collection Time Receive d Time (Source) Location / / Volume Laterality Blood specimen 08/16/2017 5:08 AM 018 5:20 (specimen) EST AM EST Resulting Agency Comment Spec In Lab Yonathan Smith MD HEMATOLOGY ORDERABLES Performing Organization Address City/State/[place] [address] (ABNORMAL) Hemogram (08/16/2017 5:08 AM EST) Analysis Performed At Patho logist Time Signature WBC 7.3 4.0 - 9.5 [facility] x10(3)/[facility] LABORATORY RBC 3.36 (L) 4.58 - [facility] [facility] [address] [facility] x10(6)/[facility] LABORATORY Hemoglobin 9.7 (L) 13.7 - [facility] 16.5 gm/dL [facility] Hematocrit 30.3 (L) 40.5 - [facility] 48.5 % [facility] MCV 90.2 82.9 - [facility] 93.1 [facility] LABORATORY MCH 28.9 27.5 - [facility] 32.1 pg [facility] MCHC 32.0 32.0 - [facility] 35.7 gm/dL [facility] Platelets 282 145 - 357 [facility] x10(3)/[facility] LABORATORY RDWSD 53.9 (H) 36.0 - [facility] 45.0 [facility] LABORATORY RDWCV 16.5 (H) 11.4 - [facility] SU 13.8 % [facility] MPV 9.0 7.6 - 12.9 [facility] LABORATORY nRBC % Auto 0.0 % [facility] nRBC Abs Auto 0.000 0.000 - [facility] SU 0.[address] [facility] x10(3)/[facility] LABORATORY Specimen Anatomical Collection Method Collection Time Receive d Time (Source) Location / / Volume Laterality Blood specimen 08/16/2017 5:08 AM 018 5:20 (specimen) EST AM EST Resulting Agency Comment Spec In Lab Yonathan Smith MD HEMATOLOGY ORDERABLES Performing Organization Address City/State/[place] [address] (ABNORMAL) Basic Metabolic Panel (non-fasting) (08/16/2017 5:08 AM EST) P athologist Signature Glucose Lvl 141 65 - 199 [facility] mg/dL [facility] Comment: Diabetes: >=200 [...] or in patients with acute kidney failure. [email or web address] [email or web address]/DHMCnkf Specimen Anatomical Collection Method Collection Time Receive d Time (Source) Location / / Volume Laterality Blood specimen 08/16/2017 5:08 AM 018 5:20 (specimen) EST AM EST Resulting Agency Comment Spec In Lab Yonathan Smith MD CHEMISTRY ORDERABLES Performing Organization Address City/State/[place] [address] (ABNORMAL) Prothrombin Time (08/16/2017 [...] Address City/State/ZIP Code Phon e Number [address] POCT Glucose (08/16/2017 4:09 AM EST) athologist Signature POC Glucose 147 65 - 199 [facility] mg[facility]dL [facility] Comment: Supplemental ranges: <140 mg/dL before meals <180 mg/dL all other times of the day Specimen Anatomical Collection Method Collection Time Receive d Time (Source) Location / / Volume Laterality Blood specimen 08/16/2017 4:09 AM 018 4:09 (specimen) EST AM EST Yonathan Smith MD POINT OF CARE TEST ORDERABLE S Performing Organization Address City/State/[place]IP [place] [address] POCT Glucose (08/15/2017 11:56 PM EST) athologist Signature POC Glucose 176 65 - 199 [facility] mg/dL [facility] Comment: Supplemental ranges: <140 mg/dL before meals <180 mg/dL all other times of the day Specimen Anatomical Collection Method Collection Time Receive d Time (Source) Location / / Volume Laterality Blood specimen 08/15/2017 11:56 8 (specimen) PM EST 11:56 PM EST Yonathan Smith MD POINT OF CARE TEST ORDERABLE S Performing Organization Address City/State/ZIP [place] [address] POCT Glucose (08/15/2017 8:05 PM EST) athologist Signature POC Glucose 136 65 - 199 [place] [facility] mg/dL [facility] Comment: Supplemental ranges: <140 mg/dL before meals <180 mg/dL all other times of the day Specimen Anatomical Collection Method Collection Time Receive d Time (Source) Location / / Volume Laterality Blood specimen 08/15/2017 8:05 PM 018 8:05 (specimen) EST PM EST Yonathan Smith MD POINT OF CARE TEST ORDERABLE S Performing Organization Address City/State/ZIP [place] [address] (ABNORMAL) POCT Glucose (08/15/2017 4:50 PM EST) athologist Signature POC Glucose 232 (H) 65 - 199 [facility] mg/dL [facility] Comment: Supplemental ranges: <140 mg/dL before meals <180 mg/dL all other times of the day Specimen Anatomical Collection Method Collection Time Receive d Time (Source) Location / / Volume Laterality Blood specimen 08/15/2017 4:50 PM 018 4:50 (specimen) EST PM EST Yonathan Smith MD POINT OF CARE TEST ORDERABLE S Performing Organization Address City/State/ZIP [place] [address] POCT Glucose (08/15/2017 12:04 PM EST) athologist Signature POC Glucose 135 65 - 199 [facility] mg/dL [facility] Comment: Supplemental ranges: <140 mg/dL before meals <180 mg/dL all other times of the day Specimen Anatomical Collection Method Collection Time Receive d Time (Source) Location / / Volume Laterality Blood specimen 08/15/2017 12:04 8 (specimen) PM EST 12:04 PM EST Yonathan Smith MD POINT OF CARE TEST ORDERABLE S Performing Organization Address City/State/ZIP [place] [address] POCT Glucose (08/15/2017 7:36 AM EST) P athologist Signature POC Glucose 124 65 - 199 [facility] mg/dL [facility] Comment: Supplemental ranges: <140 mg/dL before meals <180 mg/dL all other times of the day Specimen Anatomical Collection Method Collection Time Receive d Time (Source) Location / / Volume Laterality Blood specimen 08/15/2017 7:36 AM 018 7:36 (specimen) EST AM EST Yonathan Smith MD POINT OF CARE TEST ORDERABLE S Performing Organization Address City/State/[place] [address] (ABNORMAL) Differential, Automated (08/15/2017 6:22 AM EST) Patholo gist Method Time Signature Neutrophils % 76.1 % [facility] LABORATORY Neutr Abs (ANC) 6.62 (H) 1.70 - [facility] 6.[address] [facility] x10(3)/[facility] L LABORATORY Lymphocytes % 9.3 % [facility] LABORATORY Lymphocytes Abs 0.8 (L) 0.9 - 3.2 [facility] x10(3)/[facility] LABORATORY Monocytes % 9.4 % [facility] LABORATORY Monocyte Abs 0.8 0.3 - 0.9 [facility] x10(3)/[facility] [place] LABORATORY Eosinophils % 4.0 % [facility]OR[facility]ORY Eosinophils Abs 0.4 0.0 - 0.4 [facility] x10(3)/[facility] [place] LABORATORY Basophils % 0.6 % [facility] LABORATORY Basophils Abs 0.0 0.0 - 0.1 [facility] x10(3)/[facility] [place] LABORATORY Immature Gran % 0.60 % [facility] [...] Organization Address City/State/[place] [address] (ABNORMAL) Hemogram (08/15/2017 6:22 AM EST) Analysis Performed At Patho logist Time Signature WBC 8.7 4.0 - 9.5 [facility] x10(3)/[facility] LABORATORY RBC 3.21 (L) 4.58 - [facility] [address] [facility] x10(6)/[facility] LABORATORY Hemoglobin 9.1 (L) 13.7 - [facility] 16.5 gm/dL [facility] Hematocrit 29.0 (L) 40.5 - [facility] 48.5 % [facility] MCV 90.3 82.9 - [facility] 93.1 [facility] LABORATORY MCH 28.3 27.5 - [facility] 32.1 pg [facility] MCHC 31.4 (L) 32.0 - [facility] 35.7 gm/dL [facility] Platelets 254 145 - 357 [facility] x10(3)/[facility] LABORATORY RDWSD 53.9 (H) 36.0 - [facility] 45.0 [facility] LABORATORY RDWCV 16.3 (H) 11.4 - [facility] 13.8 % [facility] MPV 8.8 7.6 - 12.9 [facility] LABORATORY nRBC % Auto 0.0 % [facility] LABORATORY nRBC Abs Auto 0.000 0.000 - [facility] 0.[address] [facility] x10(3)/[facility] LABORATORY Specimen Anatomical Collection Method Collection Time Receive d Time (Source) Location / / Volume Laterality Blood specimen 08/15/2017 6:22 AM 018 6:33 (specimen) EST AM EST Resulting Agency Comment Spec In Lab Yonathan Smith MD HEMATOLOGY ORDERABLES Performing Organization Address City/[facility]/[place] [address] (ABNORMAL) Basic Metabolic Panel (non-fasting) (08/15/2017 6:22 AM EST) athologist Signature Glucose Lvl 118 65 - 199 [facility] mg/dL [facility] Comment: Diabetes: >=200 [...] [facility] LAB[facility]ORY Estimated GFR >60 >=60 [facility] LABORATORY Comment: The reported eGFR should be multiplied b y 1.2 for patients. The MDRD is not an appropriate measure o f renal function for patients with body mass extremes or in patients with acute kidney failure. [email or web address]/DHnkdep [email or web address]/DHMCnkf Specimen Anatomical Collection Method Collection Time Receive d Time (Source) Location / / Volume Laterality Blood specimen 08/15/2017 6:22 AM 018 6:33 (specimen) EST AM EST Resulting Agency Comment Spec In Lab Yonathan Smith MD CHEMISTRY ORDERABLES Performing Organization Address City/[facility]/ZIP [place] [address] (ABNORMAL) Prothrombin Time (08/15/2017 [...] Address City/State/ZIP [place] [address] POCT Glucose (08/15/2017 4:33 AM EST) athologist Signature POC Glucose 164 65 - 199 [facility] mg[facility]dL [facility] Comment: Supplemental ranges: <140 mg/dL before meals <180 mg/dL all other times of the day Specimen Anatomical Collection Method Collection Time Receive d Time (Source) Location / / Volume Laterality Blood specimen 08/15/2017 4:33 AM 018 4:33 (specimen) EST AM EST Yonathan Smith MD POINT OF CARE TEST ORDERABLE S Performing Organization Address City/State/ZIP [place] [address] POCT Glucose (08/15/2017 12:12 AM EST) athologist Signature POC Glucose 89 65 - 199 [facility]dL [facility] Comment: Supplemental ranges: <140 mg/dL before meals <180 mg/dL all other times of the day Specimen Anatomical Collection Method Collection Time Receive d Time (Source) Location / / Volume Laterality Blood specimen 08/15/2017 12:12 8 (specimen) AM EST 12:12 AM EST Yonathan Smith MD POINT OF CARE TEST ORDERABLE S Performing Organization Address City/State/ZIP [place] [address] (ABNORMAL) POCT Glucose (08/14/2017 8:07 PM EST) athologist Signature POC Glucose 204 (H) 65 - 199 [facility] mg/dL [facility] Comment: Supplemental ranges: <140 mg/dL before meals <180 mg/dL all other times of the day Specimen Anatomical Collection Method Collection Time Receive d Time (Source) Location / / Volume Laterality Blood specimen 08/14/2017 8:07 PM 018 8:07 (specimen) EST PM EST Yonathan Smith MD POINT OF CARE TEST ORDERABLE S Performing Organization Address City/State/ZIP [place] [address] POCT Glucose (08/14/2017 5:11 PM EST) athologist Signature POC Glucose 174 65 - 199 [place] mg/dL [facility] Comment: Supplemental ranges: <140 mg/dL before meals <180 mg/dL all other times of the day Specimen Anatomical Collection Method Collection Time Receive d Time (Source) Location / / Volume Laterality Blood specimen 08/14/2017 5:11 PM 018 5:11 (specimen) EST PM EST Yonathan Smith MD POINT OF CARE TEST ORDERABLE S Performing Organization Address City/State/ZIP [place] [address] POCT Glucose (08/14/2017 12:10 PM EST) athologist Signature POC Glucose 141 65 - 199 [facility] mg/dL [facility] Comment: Supplemental ranges: <140 mg/dL before meals <180 mg/dL all other times of the day Specimen Anatomical Collection Method Collection Time Receive d Time (Source) Location / / Volume Laterality Blood specimen 08/14/2017 12:10 8 (specimen) PM EST 12:10 PM EST Yonathan Smith MD POINT OF CARE TEST ORDERABLE S Performing Organization Address City/State/ZIP Code Phon e Number [address] POCT Glucose (08/14/2017 8:07 AM EST) P athologist Signature POC Glucose 158 65 - 199 [facility] mg/dL [facility] Comment: Supplemental ranges: <140 mg/dL before meals <180 mg/dL all other times of the day Specimen Anatomical Collection Method Collection Time Receive d Time (Source) Location / / Volume Laterality Blood specimen 08/14/2017 8:07 AM 018 8:07 (specimen) EST AM EST Yonathan Smith MD POINT OF CARE TEST ORDERABLE S Performing Organization Address City/State/ZIP [place] [address] (ABNORMAL) Differential, Automated (08/14/2017 4:52 AM EST) Patholo gist Method Time Signature Neutrophils % 78.6 % [facility] LABORATORY Neutr Abs (ANC) 7.70 (H) 1.70 - [facility] 6.[address] [facility] x10(3)/[facility] L LABORATORY Lymphocytes % 7.8 % [facility] LABORATORY Lymphocytes Abs 0.8 (L) 0.9 - 3.2 [facility] x10(3)/[facility] LABORATORY Monocytes % 8.8 % [facility] LABORATORY Monocyte Abs 0.9 0.3 - 0.9 [facility] x10(3)/[facility] LABORATORY Eosinophils % 4.0 % [facility] LABORATORY Eosinophils Abs 0.4 0.0 - 0.4 [facility] x10(3)/[facility] LABORATORY Basophils % 0.5 % [facility] LABORATORY Basophils Abs 0.0 0.0 - 0.1 [facility] x10(3)/[facility] [place] LABORATORY Immature Gran % 0.30 % [facility] [...] 0.04 x10(3)/[facility] LABORATORY Specimen Anatomical Collection Method Collection Time Receive d Time (Source) Location / / Volume Laterality Blood specimen 08/14/2017 4:52 AM 018 5:08 (specimen) EST AM EST Resulting Agency Comment Spec In Lab Yonathan Smith MD HEMATOLOGY ORDERABLES Performing Organization Address City/State/[place] [address] (ABNORMAL) Hemogram (08/14/2017 4:52 AM EST) Analysis Performed At Patho logist Time Signature WBC 9.8 (H) 4.0 - 9.5 [facility] x10(3)/[facility] LABORATORY RBC 3.32 (L) 4.58 - [facility] 5.[address] [facility] x10(6)/[facility] LABORATORY Hemoglobin 9.5 (L) 13.7 - [facility] 16.5 gm/dL [facility] Hematocrit 30.3 (L) 40.5 - [facility] 48.5 % [facility] MCV 91.3 82.9 - [facility] 93.1 [facility] LABORATORY MCH 28.6 27.5 - [place] [facility] 32.1 pg [facility] MCHC 31.4 (L) 32.0 - [facility] 35.7 gm/dL [facility] Platelets 263 145 - 357 [facility] x[facility](3[facility] LABORATORY RDWSD 54.8 (H) 36.0 - [facility] 45.0 [facility] RDWCV 16.5 (H) 11.4 - [facility] 13.8 % [facility] MPV 9.1 7.6 - 12.9 [facility] LABORATORY nRBC % Auto 0.0 % [facility] LABORATORY nRBC Abs Auto 0.000 0.000 - [facility] 0.[address] [facility] x10(3)/[facility] LABORATORY Specimen Anatomical Collection Method Collection Time Receive d Time (Source) Location / / Volume Laterality Blood specimen 08/14/2017 4:52 AM 018 5:08 (specimen) EST AM EST Resulting Agency Comment Spec In Lab Yonathan Smith MD HEMATOLOGY ORDERABLES Performing Organization Address City/[facility]/[place] [address] (ABNORMAL) Prothrombin Time (08/14/2017 [...] Organization Address City/State/[place] [address] (ABNORMAL) Basic Metabolic Panel (non-fasting) (08/14/2017 4:52 AM EST) athologist Signature Glucose Lvl 135 65 - 199 [facility] mg/dL [facility] Comment: Diabetes: >=200 [...] or in patients with acute kidney failure. [email or web address] [email or web address]/DHMCnkf Specimen Anatomical Collection Method Collection Time Receive d Time (Source) Location / / Volume Laterality Blood specimen 08/14/2017 4:52 AM 018 5:08 (specimen) EST AM EST Resulting Agency Comment Spec In Lab Yonathan Smith MD CHEMISTRY ORDERABLES Performing Organization Address City/State/[place] [address] POCT Glucose (08/14/2017 3:56 AM EST) P athologist Signature POC Glucose 135 65 - 199 [facility] mg/dL [facility] Comment: Supplemental ranges: <140 mg/dL before meals <180 mg/dL all other times of the day Specimen Anatomical Collection Method Collection Time Receive d Time (Source) Location / / Volume Laterality Blood specimen 08/14/2017 3:56 AM 018 3:56 (specimen) EST AM EST Yonathan Smith MD POINT OF CARE TEST ORDERABLE S Performing Organization Address City/State/ZIP [place] [address] POCT Glucose (08/13/2017 11:13 PM EST) athologist Signature POC Glucose 118 65 - 199 [place] mg/dL [facility] Comment: Supplemental ranges: <140 mg/dL before meals <180 mg/dL all other times of the day Specimen Anatomical Collection Method Collection Time Receive d Time (Source) Location / / Volume Laterality Blood specimen 08/13/2017 11:13 8 (specimen) PM EST 11:13 PM EST Yonathan Smith MD POINT OF CARE TEST ORDERABLE S Performing Organization Address City/[facility]/ZIP [place] [address] (ABNORMAL) POCT Glucose (08/13/2017 8:08 PM EST) athologist Signature POC Glucose 204 (H) 65 - 199 [place] [facility] mg/dL [facility] Comment: Supplemental ranges: <140 mg/dL before meals <180 mg/dL all other times of the day Specimen Anatomical Collection Method Collection Time Receive d Time (Source) Location / / Volume Laterality Blood specimen 08/13/2017 8:08 PM 018 8:08 (specimen) EST PM EST Yonathan Smith MD POINT OF CARE TEST ORDERABLE S Performing Organization Address City/[facility]/ZIP Code [place] [address] POCT Glucose (08/13/2017 4:02 PM EST) athologist Signature POC Glucose 145 65 - 199 [place] mg/dL [facility] Comment: Supplemental ranges: <140 mg/dL before meals <180 mg/dL all other times of the day Specimen Anatomical Collection Method Collection Time Receive d Time (Source) Location / / Volume Laterality Blood specimen 08/13/2017 4:02 PM 018 4:02 (specimen) EST PM EST Yonathan Smith MD POINT OF CARE TEST ORDERABLE S Performing Organization Address City/State/ZIP [place] [address] POCT Glucose (08/13/2017 11:31 AM EST) P athologist Signature POC Glucose 179 65 - 199 [facility] Comment: Supplemental ranges: <140 mg/dL before meals <180 mg/dL all other times of the day Specimen Anatomical Collection Method Collection Time Receive d Time (Source) Location / / Volume Laterality Blood specimen 08/13/2017 11:31 8 (specimen) AM EST 11:31 AM EST Yonathan Smith MD POINT OF CARE TEST ORDERABLE S Performing Organization Address City/[facility]/ZIP [place] [address] (ABNORMAL) POCT Glucose (08/13/2017 10:16 AM EST) athologist Signature POC Glucose 211 (H) 65 - 199 [facility] mg/dL [facility] Comment: Supplemental ranges: <140 mg/dL before meals <180 mg/dL all other times of the day Specimen Anatomical Collection Method Collection Time Receive d Time (Source) Location / / Volume Laterality Blood specimen 08/13/2017 10:16 8 (specimen) AM EST 10:16 AM EST Yonathan Smith MD POINT OF CARE TEST ORDERABLE S Performing Organization Address City/[facility]/ZIP Code Phon e Number [address] JULIAN, legs, multiple levels (08/13/2017 7:42 AM EST) Component Value Ref Test Analysis Performed At Patholo gist Range Method Time Signature VB Text Department: Vascular Surgery Lab VASCUBASE Report Patient: [id number] (GREGORY HOANG) CPT: 29352 ICD10: I99.8 Referring Physician: YONATHAN SMITH ?? Indications: s/p R 1,2,3 toe amps with red left foot, need n ew baseline Diabetes mellitus: yes ICD10 Diagnosis Code: I99.8 Findings: Right ?Pressure (mm Hg) ?? JULIAN ??Waveform ?TBI ?? Brachial Artery ?138 ? Dorsalis Pedis (Ankle) Arter y ?132 ? 0.94 ??[place]- Biphasic ? Posterior Tibial (Ankle) Art anila ??154 ? 1.10 ??[place]-Biphasic ? Fourth Toe ? 67 ? 0.48 [...] 156 65 - 199 [place] [place] mg/dL [facility] Comment: Supplemental ranges: <140 mg/dL before meals <180 mg/dL all other times of the day Specimen Anatomical Collection Method Collection Time Receive d Time (Source) Location / / Volume Laterality Blood specimen 08/13/2017 7:33 AM 018 7:33 (specimen) EST AM EST Yonathan Smith MD POINT OF CARE TEST ORDERABLE S Performing Organization Address City/State/ZIP [place] [address] (ABNORMAL) Differential, Automated (08/13/2017 5:33 AM EST) [facility] Method Time Signature Neutrophils % 77.8 % [facility] LABORATORY Neutr Abs (ANC) 7.83 (H) 1.70 - [facility] 6.[address] [facility] x10(3)/[facility] L LABORATORY Lymphocytes % 8.4 % [facility] LABORATORY Lymphocytes Abs 0.8 (L) 0.9 - 3.2 [facility] x10(3)/[facility] LABORATORY Monocytes % 8.3 % [facility] LABORATORY Monocyte Abs 0.8 0.3 - 0.9 [facility] x10(3)/[facility] [place] LABORATORY Eosinophils % 4.6 % [facility] LABORATORY Eosinophils Abs 0.5 (H) 0.0 - 0.4 [facility] x10(3)/[facility] [place] LABORATORY Basophils % 0.5 % [facility] LABORATORY Basophils Abs 0.0 0.0 - 0.1 [facility] x10(3)/[facility] [place] LABORATORY Immature Gran % 0.40 % [facility] [...] Address City/State/ZIP Code Phon e Number [address] (ABNORMAL) Hemogram (08/13/2017 5:33 AM EST) Analysis Performed At Patho logist Time Signature WBC 10.1 (H) 4.0 - 9.5 [facility] x10(3)/[facility] LABORATORY RBC 3.21 (L) 4.58 - [facility] 5.[address] [facility] x10(6)/[facility] LABORATORY Hemoglobin 9.2 (L) 13.7 - [facility] 16.5 gm/dL [facility] Hematocrit 29.6 (L) 40.5 - [facility] 48.5 % [facility] MCV 92.2 82.9 - [facility] 93.1 [facility] LABORATORY MCH 28.7 27.5 - [facility] 32.1 pg [facility] MCHC 31.1 (L) 32.0 - [facility] 35.[facility] gm/dL [facility] Platelets 263 145 - 357 [facility] x10(3)/[facility] LABORATORY RDWSD 54.8 (H) 36.0 - [facility] 45.0 [facility] LABORATORY RDWCV 16.4 (H) 11.4 - [facility] 13.8 % [facility]AT[facility] MPV 9.2 7.6 - 12.9 [facility] LABORATORY nRBC % Auto 0.0 % [facility] LABORATORY nRBC Abs Auto 0.000 0.000 - [facility] 0.[address] [facility] x10(3)/[facility] LABORATORY Specimen Anatomical Collection Method Collection Time Receive d Time (Source) Location / / Volume Laterality Blood specimen 08/13/2017 5:33 AM 018 6:04 (specimen) EST AM EST Resulting Agency Comment Spec In Lab Yonathan Smith MD HEMATOLOGY ORDERABLES Performing Organization Address City/State/ZIP [place] [address] (ABNORMAL) Prothrombin Time (08/13/2017 [...] City/State/ZIP Code Phon e Number [place] [id number] (ABNORMAL) Basic Metabolic Panel (non-fasting) (08/13/2017 5:33 AM EST) athologist Signature Glucose Lvl 126 65 - 199 [facility] mg/dL [facility] Comment: Diabetes: >=200 [...] [facility] Estimated GFR >60 >=60 [facility] Comment: The reported eGFR should be multiplied b y 1.2 for patients. The MDRD is not an appropriate measure o f renal function for patients with body mass extremes or in patients with acute kidney failure. http://[employer]/DHnkdep http://[employer]/DHMCnkf Specimen Anatomical Collection Method Collection Time Receive d Time (Source) Location / / Volume Laterality Blood specimen 08/13/2017 5:33 AM 018 6:04 (specimen) EST AM EST Resulting Agency Comment Spec In Lab Yonathan Smith MD CHEMISTRY ORDERABLES Performing Organization Address City/[facility]/ZIP [facility] Phon e Number [address] POCT Glucose (08/13/2017 4:29 AM EST) athologist Signature POC Glucose 111 65 - 199 [facility]dL [facility] Comment: Supplemental ranges: <140 mg/dL before meals <180 mg/dL all other times of the day Specimen Anatomical Collection Method Collection Time Receive d Time (Source) Location / / Volume Laterality Blood specimen 08/13/2017 4:29 AM 018 4:29 (specimen) EST AM EST Yonathan Smith MD POINT OF CARE TEST ORDERABLE S Performing Organization Address City/[facility]/ZIP Code Phon e Number [address] POCT Glucose (08/12/2017 11:28 PM EST) athologist Signature POC Glucose 164 65 - 199 [facility] mg[facility]dL [facility] Comment: Supplemental ranges: <140 mg/dL before meals <180 mg/dL all other times of the day Specimen Anatomical Collection Method Collection Time Receive d Time (Source) Location / / Volume Laterality Blood specimen 08/12/2017 11:28 8 (specimen) PM EST 11:28 PM EST Yonathan Smith MD POINT OF CARE TEST ORDERABLE S Performing Organization Address City/[facility]/ZIP [place] [address] (ABNORMAL) POCT Glucose (08/12/2017 7:40 PM EST) athologist Signature POC Glucose 209 (H) 65 - 199 [facility] mg/dL [facility] Comment: Supplemental ranges: <140 mg/dL before meals <180 mg/dL all other times of the day Specimen Anatomical Collection Method Collection Time Receive d Time (Source) Location / / Volume Laterality Blood specimen 08/12/2017 7:40 PM 018 7:40 (specimen) EST PM EST Yonathan Smith MD POINT OF CARE TEST ORDERABLE S Performing Organization Address City/State/ZIP Code Phon e Number [address] POCT Glucose (08/12/2017 4:24 PM EST) athologist Signature POC Glucose 161 65 - 199 [facility] mg/dL [facility] Comment: Supplemental ranges: <140 mg/dL before meals <180 mg/dL all other times of the day Specimen Anatomical Collection Method Collection Time Receive d Time (Source) Location / / Volume Laterality Blood specimen 08/12/2017 4:24 PM 018 4:24 (specimen) EST PM EST Yonathan Smith MD POINT OF CARE TEST ORDERABLE S Performing Organization Address City/State/ZIP [place] [address] POCT Glucose (08/12/2017 12:00 PM EST) athologist Signature POC Glucose 167 65 - 199 [facility] mg/dL [facility] Comment: Supplemental ranges: <140 mg/dL before meals <180 mg/dL all other times of the day Specimen Anatomical Collection Method Collection Time Receive d Time (Source) Location / / Volume Laterality Blood specimen 08/12/2017 12:00 8 (specimen) PM EST 12:00 PM EST Yonathan Smith MD POINT OF CARE TEST ORDERABLE S Performing Organization Address City/State/ZIP [place] [address] POCT Glucose (08/12/2017 7:25 AM EST) P athologist Signature POC Glucose 152 65 - 199 [facility] mg/dL [facility] Comment: Supplemental ranges: <140 mg/dL before meals <180 mg/dL all other times of the day Specimen Anatomical Collection Method Collection Time Receive d Time (Source) Location / / Volume Laterality Blood specimen 08/12/2017 7:25 AM 018 7:25 (specimen) EST AM EST Yonathan Smith MD POINT OF CARE TEST ORDERABLE S Performing Organization Address City/State/[place] [address] (ABNORMAL) Differential, Automated (08/12/2017 6:29 AM EST) Patholo gist Method Time Signature Neutrophils % 78.7 % [facility] Neutr Abs (ANC) 7.94 (H) 1.70 - [facility] 6.[address] [facility] x10(3)/[facility] LABORATORY Lymphocytes % 8.8 % [facility] Lymphocytes Abs 0.9 0.9 - 3.2 [facility] x10(3)/[facility] LABORATORY Monocytes % 7.8 % [facility] Monocyte Abs 0.8 0.3 - 0.9 [facility] x10(3)/[facility] LABORATORY Eosinophils % 3.9 % [facility] Eosinophils Abs 0.4 0.0 - 0.4 [facility] x10(3)/[facility] LABORATORY Basophils % 0.3 % [facility] Basophils Abs 0.0 0.0 - 0.1 [facility] x10(3)/[facility] LABORATORY Immature Gran % 0.50 % [facility] [...] Organization Address City/State/[place] [address] (ABNORMAL) Hemogram (08/12/2017 6:29 AM EST) Analysis Performed At Patho logist Time Signature WBC 10.1 (H) 4.0 - 9.5 [facility] x10(3)/[facility] LABORATORY RBC 3.02 (L) 4.58 - [facility] [address] [facility] x10(6)/[facility] LABORATORY Hemoglobin 8.7 (L) 13.7 - [facility] 16.5 gm/dL [facility] Hematocrit 28.1 (L) 40.5 - [facility] 48.5 % [facility] MCV 93.0 82.9 - [facility] 93.1 [facility] LABORATORY MCH 28.8 27.5 - [facility] 32.1 pg [facility] MCHC 31.0 (L) 32.0 - [facility] 35.7 gm/dL [facility] Platelets 223 145 - 357 [facility] x10(3)/[facility] LABORATORY RDWSD 56.1 (H) 36.0 - [facility] 45.0 [facility] LABORATORY RDWCV 16.4 (H) 11.4 - [facility] 13.8 % [facility] MPV 9.0 7.6 - 12.9 [facility] LABORATORY nRBC % Auto 0.0 % [facility] nRBC Abs Auto 0.000 0.000 - [facility] 0.[address] [facility] x10(3)/[facility] LABORATORY Specimen Anatomical Collection Method Collection Time Receive d Time (Source) Location / / Volume Laterality Blood specimen 08/12/2017 6:29 AM 018 6:38 (specimen) EST AM EST Resulting Agency Comment Spec In Lab Yonathan Smith MD HEMATOLOGY ORDERABLES Performing Organization Address City/[facility]/ZIP [place] [address] (ABNORMAL) Prothrombin Time (08/12/2017 [...] HEMATOLOGY ORDERABLES Performing Organization Address City/[facility]/ZIP [place] [address] (ABNORMAL) Basic Metabolic Panel (non-fasting) (08/12/2017 6:29 AM EST) athologist Signature Glucose Lvl 151 65 - 199 [facility] mg/dL [facility] Comment: Diabetes: >=200 [...] [facility] Estimated GFR >60 >=60 [facility] Comment: The reported eGFR should be multiplied b y 1.2 for patients. The MDRD is not an appropriate measure o f renal function for patients with body mass extremes or in patients with acute kidney failure. http://[employer]/DHnkdep http://[employer]/DHMCnkf Specimen Anatomical Collection Method Collection Time Receive d Time (Source) Location / / Volume Laterality Blood specimen 08/12/2017 6:29 AM 018 6:38 (specimen) EST AM EST Resulting Agency Comment Spec In Lab Yonathan Smith MD CHEMISTRY ORDERABLES Performing Organization Address City/[facility]/ZIP Code Phon e Number [address] POCT Glucose (08/12/2017 4:08 AM EST) athologist Signature POC Glucose 181 65 - 199 [facility] mg[facility]dL [facility] Comment: Supplemental ranges: <140 mg/dL before meals <180 mg/dL all other times of the day Specimen Anatomical Collection Method Collection Time Receive d Time (Source) Location / / Volume Laterality Blood specimen 08/12/2017 4:08 AM 018 4:08 (specimen) EST AM EST Yonathan Smith MD POINT OF CARE TEST ORDERABLE S Performing Organization Address City/[facility]/ZIP [place] [address] (ABNORMAL) POCT Glucose (08/12/2017 12:17 AM EST) athologist Signature POC Glucose 221 (H) 65 - 199 [facility] mg[facility]dL [facility] Comment: Supplemental ranges: <140 mg/dL before meals <180 mg/dL all other times of the day Specimen Anatomical Collection Method Collection Time Receive d Time (Source) Location / / Volume Laterality Blood specimen 08/12/2017 12:17 8 (specimen) AM EST 12:17 AM EST Yonathan Smith MD POINT OF CARE TEST ORDERABLE S Performing Organization Address City/State/ZIP [place] [address] (ABNORMAL) POCT Glucose (08/11/2017 8:52 PM EST) athologist Signature POC Glucose 221 (H) 65 - 199 [facility] mg/dL [facility] Comment: Supplemental ranges: <140 mg/dL before meals <180 mg/dL all other times of the day Specimen Anatomical Collection Method Collection Time Receive d Time (Source) Location / / Volume Laterality Blood specimen 08/11/2017 8:52 PM 018 8:52 (specimen) EST PM EST Ynoathan Smith MD POINT OF CARE TEST ORDERABLE S Performing Organization Address City/[facility]/ZIP [place] [address] POCT Glucose (08/11/2017 5:59 PM EST) athologist Signature POC Glucose 169 65 - 199 [facility] mg/dL [facility] Comment: Supplemental ranges: <140 mg/dL before meals <180 mg/dL all other times of the day Specimen Anatomical Collection Method Collection Time Receive d Time (Source) Location / / Volume Laterality Blood specimen 08/11/2017 5:59 PM 018 5:59 (specimen) EST PM EST Yonathan Smith MD POINT OF CARE TEST ORDERABLE S Performing Organization Address City/State/ZIP [place] [address] (ABNORMAL) POCT Glucose (08/11/2017 4:08 PM EST) athologist Signature POC Glucose 240 (H) 65 - 199 [facility] mg/dL [facility] Comment: Supplemental ranges: <140 mg/dL before meals <180 mg/dL all other times of the day Specimen Anatomical Collection Method Collection Time Receive d Time (Source) Location / / Volume Laterality Blood specimen 08/11/2017 4:08 PM 018 4:08 (specimen) EST PM EST Yonathan Smith MD POINT OF CARE TEST ORDERABLE S Performing Organization Address City/State/ZIP Code Phon e Number [address] POCT Glucose (08/11/2017 12:04 PM EST) athologist Signature POC Glucose 182 65 - 199 [facility] mg[facility]dL [facility] Comment: Supplemental ranges: <140 mg/dL before meals <180 mg/dL all other times of the day Specimen Anatomical Collection Method Collection Time Receive d Time (Source) Location / / Volume Laterality Blood specimen 08/11/2017 12:04 8 (specimen) PM EST 12:04 PM EST Yonathan Smith MD POINT OF CARE TEST ORDERABLE S Performing Organization Address City/[facility]/ZIP [place] [address] POCT Glucose (08/11/2017 7:31 AM EST) athologist Signature POC Glucose 156 65 - 199 [facility] mg/dL [facility] Comment: Supplemental ranges: <140 mg/dL before meals <180 mg/dL all other times of the day Specimen Anatomical Collection Method Collection Time Receive d Time (Source) Location / / Volume Laterality Blood specimen 08/11/2017 7:31 AM 018 7:31 (specimen) EST AM EST Yonathan Smith MD POINT OF CARE TEST ORDERABLE S Performing Organization Address City/State/ZIP Code Phon e Number [address] (ABNORMAL) Differential, Automated (08/11/2017 6:16 AM EST) [facility] gist Method Time Signature Neutrophils % 83.7 % [facility] Neutr Abs (ANC) 10.76 (H) 1.70 - [facility] 6.[address] [facility] x10(3)/[facility] L LABORATORY Lymphocytes % 6.0 % [facility] Lymphocytes Abs 0.8 (L) 0.9 - 3.2 [facility] x10(3)/[facility] LABORATORY Monocytes % 7.5 % [facility] Monocyte Abs 1.0 (H) 0.3 - 0.9 [facility] x10(3)/[facility] LABORATORY Eosinophils % 2.0 % [facility] Eosinophils Abs 0.3 0.0 - 0.4 [facility] x10(3)/[facility] LABORATORY Basophils % 0.3 % [facility] Basophils Abs 0.0 0.0 - 0.1 [facility] x10(3)/[facility] LABORATORY Immature Gran % 0.50 % [facility] [...] Organization Address City/State/[place] [address] (ABNORMAL) Hemogram (08/11/2017 6:16 AM EST) Analysis Performed At Patho logist Time Signature WBC 12.9 (H) 4.0 - 9.5 [facility] x10(3)/[facility] LABORATORY RBC 3.28 (L) 4.58 - [facility] 5.[address] [facility] x10(6)/[facility] LABORATORY Hemoglobin 9.5 (L) 13.7 - [facility] 16.5 gm/dL [facility] Hematocrit 29.8 (L) 40.5 - [facility] 48.5 % [facility] MCV 90.9 82.9 - [facility] 93.1 [facility] LABORATORY MCH 29.0 27.5 - [facility] 32.1 [facility] LABORATORY MCHC 31.9 (L) 32.0 - [facility] 35.7 gm/dL [facility] Platelets 236 145 - 357 [facility] x10(3)/[facility] LABORATORY RDWSD 53.5 (H) 36.0 - [facility] 45.0 [facility] LABORATORY RDWCV 16.3 (H) 11.4 - [facility] 13.8 % [facility] MPV 8.8 7.6 - 12.9 [facility] nRBC % Auto 0.0 % [facility] nRBC Abs Auto 0.000 0.000 - [facility] 0.[address] [facility] x10(3)/[facility] LABORATORY Specimen Anatomical Collection Method Collection Time Receive d Time (Source) Location / / Volume Laterality Blood specimen 08/11/2017 6:16 AM 018 6:24 (specimen) EST AM EST Resulting Agency Comment Spec In Lab Yonathan Smith MD HEMATOLOGY ORDERABLES Performing Organization Address City/State/ZIP Code Phon e Number [place] [id number]OS[address]ORY Drive (ABNORMAL) Prothrombin Time (08/11/2017 [...] Organization Address City/State/[place] [address] Basic Metabolic Panel (non-fasting) (08/11/2017 6:16 AM EST) P athologist Signature Glucose Lvl 139 65 - 199 [facility] mg/dL [facility] Comment: Diabetes: >=200 [...] [facility] Estimated GFR >60 >=60 [facility] Comment: The reported eGFR should be multiplied b y 1.2 for patients. The MDRD is not an appropriate measure o f renal function for patients with body mass extremes or in patients with acute kidney failure. http://[employer]/DHnkdep http://[employer]/DHMCnkf Specimen Anatomical Collection Method Collection Time Receive d Time (Source) Location / / Volume Laterality Blood specimen 08/11/2017 6:16 AM 018 6:24 (specimen) EST AM EST Resulting Agency Comment Spec In Lab Yonathan Smith MD CHEMISTRY ORDERABLES Performing Organization Address City/State/ZIP Code Phon e Number [address] POCT Glucose (08/11/2017 4:07 AM EST) athologist Signature POC Glucose 162 65 - 199 [facility] mg/dL [facility] Comment: Supplemental ranges: <140 mg/dL before meals <180 mg/dL all other times of the day Specimen Anatomical Collection Method Collection Time Receive d Time (Source) Location / / Volume Laterality Blood specimen 08/11/2017 4:07 AM 018 4:07 (specimen) EST AM EST Yonathan Smith MD POINT OF CARE TEST ORDERABLE S Performing Organization Address City/[facility]/ZIP Code Phon e Number [place] [address] POCT Glucose (08/10/2017 11:59 PM EST) athologist Signature POC Glucose 166 65 - 199 [facility] mg/dL [facility] Comment: Supplemental ranges: <140 mg/dL before meals <180 mg/dL all other times of the day Specimen Anatomical Collection Method Collection Time Receive d Time (Source) Location / / Volume Laterality Blood specimen 08/10/2017 11:59 8 (specimen) PM EST 11:59 PM EST Yonathan Smith MD POINT OF CARE TEST ORDERABLE S Performing Organization Address City/[facility]/ZIP Code Phon e Number [place] [address] POCT Glucose (08/10/2017 8:12 PM EST) athologist Signature POC Glucose 156 65 - 199 [facility] mg/dL [facility] Comment: Supplemental ranges: <140 mg/dL before meals <180 mg/dL all other times of the day Specimen Anatomical Collection Method Collection Time Receive d Time (Source) Location / / Volume Laterality Blood specimen 08/10/2017 8:12 PM 018 8:12 (specimen) EST PM EST Yonathan Smith MD POINT OF CARE TEST ORDERABLE S Performing Organization Address City/State/ZIP [place] [address] (ABNORMAL) POCT Glucose (08/10/2017 4:42 PM EST) P athologist Signature POC Glucose 211 (H) 65 - 199 [facility] mg/dL [facility] Comment: Supplemental ranges: <140 mg/dL before meals <180 mg/dL all other times of the day Specimen Anatomical Collection Method Collection Time Receive d Time (Source) Location / / Volume Laterality Blood specimen 08/10/2017 4:42 PM 018 4:42 (specimen) EST PM EST Yonathan Smith MD POINT OF CARE TEST ORDERABLE S Performing Organization Address City/State/ZIP Code Phon e Number [address] (ABNORMAL) Differential, Automated (08/10/2017 2:30 PM EST) Patholo gist Method Time Signature Neutrophils % 87.6 % [facility] Neutr Abs (ANC) 9.90 (H) 1.70 - [facility] 6.[address] [facility] x10(3)/[facility] L LABORATORY Lymphocytes % 4.3 % [facility] Lymphocytes Abs 0.5 (L) 0.9 - 3.2 [facility] x10(3)/[facility] LABORATORY Monocytes % 6.0 % [facility] Monocyte Abs 0.7 0.3 - 0.9 [facility] x10(3)/[facility] LABORATORY Eosinophils % 1.1 % [facility] Eosinophils Abs 0.1 0.0 - 0.4 [facility] x10(3)/[facility] LABORATORY Basophils % 0.4 % [facility] Basophils Abs 0.0 0.0 - 0.1 [facility] x10(3)/[facility] LABORATORY Immature Gran % 0.60 % [facility] [...] Organization Address City/State/[place] [address] (ABNORMAL) Hemogram (08/10/2017 2:30 PM EST) Analysis Performed At Patho logist Time Signature WBC 11.3 (H) 4.0 - 9.5 [facility] x10(3)/[facility] LABORATORY RBC 3.13 (L) 4.58 - [facility] 5.[address] [facility] x10(6)/[facility] LABORATORY Hemoglobin 8.9 (L) 13.7 - [facility] 16.5 gm/dL [facility] Hematocrit 28.4 (L) 40.5 - [facility] 48.5 % [facility] MCV 90.7 82.9 - [facility] 93.1 [facility] LABORATORY MCH 28.4 27.5 - [facility] 32.1 pg [facility] MCHC 31.3 (L) 32.0 - [facility] 35.7 gm/dL [facility] Platelets 213 145 - 357 [facility] x10(3)/[facility] LABORATORY RDWSD 53.7 (H) 36.0 - [facility] 45.0 [facility] LABORATORY RDWCV 16.4 (H) 11.4 - [facility] 13.8 % [facility] MPV 8.9 7.6 - 12.9 [facility] LABORATORY nRBC % Auto 0.0 % [facility] nRBC Abs Auto 0.000 0.000 - [facility] 0.[address] [facility] x10(3)/[facility] LABORATORY Specimen Anatomical Collection Method Collection Time Receive d Time (Source) Location / / Volume Laterality Blood specimen 08/10/2017 2:30 PM 018 2:48 (specimen) EST PM EST Resulting Agency Comment Spec In Lab Yonathan Smith MD HEMATOLOGY ORDERABLES Performing Organization Address City/State/ZIP [place] [address] (ABNORMAL) POCT Glucose (08/10/2017 1:50 PM EST) athologist Signature POC Glucose 243 (H) 65 - 199 [facility]dL [facility] Comment: Supplemental ranges: <140 mg/dL before meals <180 mg/dL all other times of the day Specimen Anatomical Collection Method Collection Time Receive d Time (Source) Location / / Volume Laterality Blood specimen 08/10/2017 1:50 PM 018 1:50 (specimen) EST PM EST Yonathan Smith MD POINT OF CARE TEST ORDERABLE S Performing Organization Address City/[facility]/ZIP [place] [address] POCT Glucose (08/10/2017 11:21 AM EST) athologist Signature POC Glucose 156 65 - 199 [facility] mg/dL [facility] Comment: Supplemental ranges: <140 mg/dL before meals <180 mg/dL all other times of the day Specimen Anatomical Collection Method Collection Time Receive d Time (Source) Location / / Volume Laterality Blood specimen 08/10/2017 11:21 8 (specimen) AM EST 11:21 AM EST Yonathan Smith MD POINT OF CARE TEST ORDERABLE S Performing Organization Address City/State/ZIP [place] [address] (ABNORMAL) Differential, Automated (08/10/2017 10:28 AM EST) [facility] gist Method Time Signature Neutrophils % 85.3 % [facility] Neutr Abs (ANC) 9.43 (H) 1.70 - [facility] 6.[address] [facility] x10(3)/[facility] LABORATORY Lymphocytes % 5.5 % [facility] Lymphocytes Abs 0.6 (L) 0.9 - 3.2 [facility] x10(3)/[facility] LABORATORY Monocytes % 5.9 % [facility] Monocyte Abs 0.6 0.3 - 0.9 [facility] x10(3)/[facility] LABORATORY Eosinophils % 2.1 % [facility] Eosinophils Abs 0.2 0.0 - 0.4 [facility] x10(3)/[facility] [facility] [place] LABORATORY Basophils % 0.4 % [facility] LABORATORY Basophils Abs 0.0 0.0 - 0.1 [facility] x10(3)/[facility] [place] LABORATORY Immature Gran % 0.80 % [facility]ERBS [...] Organization Address City/State/[place] [address] (ABNORMAL) Hemogram (08/10/2017 10:28 AM EST) Analysis Performed At Patho logist Time Signature WBC 11.0 (H) 4.0 - 9.5 [facility] x10(3)/[facility] LABORATORY RBC 3.02 (L) 4.58 - [facility] 5.[address] [facility] x10(6)/[facility] LABORATORY Hemoglobin 8.8 (L) 13.7 - [facility] 16.5 gm/dL [facility] LABORATORY Hematocrit 28.1 (L) 40.5 - [place] 48.5 % [facility] LABORATORY MCV 93.0 82.9 - [facility]1 [facility] LABORATORY MCH 29.1 27.5 - [place] OLIVASCK 32.1 pg [facility] LABORATORY MCHC 31.3 (L) 32.0 - [place] 35.7 gm/dL [facility] LABORATORY Platelets 207 145 - 357 [place] x10(3)/[facility] LABORATORY RDWSD 55.3 (H) 36.0 - [place] 45.0 [facility] LABORATORY RDWCV 16.4 (H) 11.4 - [place] SU 13.8 % [facility] LABORATORY MPV 9.0 7.6 - 12.9 [facility] LABORATORY nRBC % Auto 0.0 % [facility] LABORATORY nRBC Abs Auto 0.000 0.000 - [place] ZHAOSU 0.[address] [facility] x10(3)/[facility] LABORATORY Specimen Anatomical Collection Method Collection Time Receive d Time (Source) Location / / Volume Laterality Blood specimen 08/10/2017 10:28 8 (specimen) AM EST 10:35 AM EST Resulting Agency Comment Spec In Lab Yonathan Smith MD HEMATOLOGY ORDERABLES Performing Organization Address City/State/ZIP Code Phon e Number [place] [id number] HOSPITAL LABORATORY Drive VS Angiogram/intervention (vascular) (08/10/2017 [...] 5. Completion RLE angiogram 6. L [employer]GEANT angiogram 7. 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 - L [employer] SERGEANT angriogram demonstrated: High fe moral bifurcation over the proximal half of the femoral head. L [employer] S[employer]IOR SERGEANT access in the distal L [employer] SENIOR SERGEANT. - Closure device: Mynx Technical Procedure: ?The [...] for a 45cm 5F Destination. V18 and Clayton a nd QuickCross catheters were used to [...] Access appeared in the distal R [employer] S[employer]IOR SERGEANT. Closure and sheath removal was performed with [...] 5. Completion RLE angiogram 6. L [employer] S[employer]IOR SERGEANT angiogram 7. 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 - L [employer]IOR SERGEANT angriogram demonstrated: High fe moral bifurcation over the proximal half of the femoral head. L [employer] S[employer]IOR SERGEANT access in the distal L [employer]ELD [employer] SENIOR SERGEANT. - Closure device: Mynx Technical Procedure: The [...] for a 45cm 5F Destination. V18 and Clayton a nd QuickCross catheters were used to [...] Access appeared in the distal R [employer]IOR SERGEANT. Closure and sheath removal was performed with [...] (ABNORMAL) Differential, Automated (08/10/2017 5:50 AM EST) [facility] Method Time Signature Neutrophils % 80.1 % [facility] LABORATORY Neutr Abs (ANC) 9.01 (H) 1.70 - [facility] 6.[address] [facility] x10(3)/[facility] LABORATORY Lymphocytes % 8.8 % [facility] LABORATORY Lymphocytes Abs 1.0 0.9 - 3.2 [facility] x[facility](3[facility] [place] LABORATORY Monocytes % 8.3 % [facility] LABORATORY Monocyte Abs 0.9 0.3 - 0.9 [facility] x[facility](3)/[facility] [place] LABORATORY Eosinophils % 2.0 % [facility] LABORATORY Eosinophils Abs 0.2 0.0 - 0.4 [facility] x10(3)/[facility] [place] LABORATORY Basophils % 0.4 % [facility] LABORATORY Basophils Abs 0.0 0.0 - 0.1 [facility] x10(3)/[facility] [place] LABORATORY Immature Gran % 0.40 % KERBS [...] Organization Address City/State/[place] [address] (ABNORMAL) Hemogram (08/10/2017 5:50 AM EST) Analysis Performed At Patho logist Time Signature WBC 11.3 (H) 4.0 - 9.5 [facility] x10(3)/[facility] LABORATORY RBC 3.15 (L) 4.58 - [facility] [address] [facility] x10(6)/[facility] LABORATORY Hemoglobin 8.9 (L) 13.7 - [facility] 16.5 gm/dL [facility] LABORATORY Hematocrit 29.0 (L) 40.5 - [facility] 48.5 % [facility] LAB[facility]ATORY MCV 92.1 82.9 - [facility] 93.1 [facility] LABORATORY MCH 28.3 27.5 - [place] SU 32.1 pg [facility] LABORATORY MCHC 30.7 (L) 32.0 - [facility] 35.7 gm/dL [facility] LABORATORY Platelets 231 145 - 357 [facility] x10(3)/[facility] LABORATORY RDWSD 53.9 (H) 36.0 - [place] SU 45.0 [facility] LABORATORY RDWCV 16.2 (H) 11.4 - [facility] SU 13.8 % [facility] LABORATORY MPV 8.7 7.6 - 12.9 [facility] LABORATORY nRBC % Auto 0.0 % [facility] LABORATORY nRBC Abs Auto 0.000 0.000 - [facility] 0.[address] [facility] x10(3)/[facility] LABORATORY Specimen Anatomical Collection Method Collection Time Receive d Time (Source) Location / / Volume Laterality Blood specimen 08/10/2017 5:50 AM 018 5:59 (specimen) EST AM EST Resulting Agency Comment Spec In Lab Yontahan Smith MD HEMATOLOGY ORDERABLES Performing Organization Address City/State/[place] [address] (ABNORMAL) Basic Metabolic Panel (non-fasting) (08/10/2017 5:50 AM EST) P athologist Signature Glucose Lvl 135 65 - 199 [facility] mg/dL [facility] LABORATORY Comment: Diabetes: >=200 [...] [facility] LABORATORY Estimated GFR >60 >=60 [facility] LABORATORY Comment: The reported eGFR should be multiplied b y 1.2 for patients. The MDRD is not an appropriate measure o f renal function for patients with body mass extremes or in patients with acute kidney failure. http://[employer]/DHnkdep http://[employer]/DHMCnkf Specimen Anatomical Collection Method Collection Time Receive d Time (Source) Location / / Volume Laterality Blood specimen 08/10/2017 5:50 AM 018 5:59 (specimen) EST AM EST Resulting Agency Comment Spec In Lab Yonathan Smith MD CHEMISTRY ORDERABLES Performing Organization Address [facility] [place] [address] (ABNORMAL) Prothrombin Time (08/10/2017 [...] HEMATOLOGY ORDERABLES Performing Organization Address City/[facility] [place] [address] (ABNORMAL) POCT Glucose (08/10/2017 4:01 AM EST) athologist Signature POC Glucose 206 (H) 65 - 199 [facility] mg/dL [facility] LABORATORY Comment: Supplemental ranges: <140 mg/dL before meals <180 mg/dL all other times of the day Specimen Anatomical Collection Method Collection Time Receive d Time (Source) Location / / Volume Laterality Blood specimen 08/10/2017 4:01 AM 018 4:01 (specimen) EST AM EST Yonathan Smith MD POINT OF CARE TEST ORDERABLE S Performing Organization Address City/State/ZIP [place] [address] POCT Glucose (08/10/2017 2:01 AM EST) athologist Signature POC Glucose 188 65 - 199 [place] [facility] mg/dL [facility] LABORATORY Comment: Supplemental ranges: <140 mg/dL before meals <180 mg/dL all other times of the day Specimen Anatomical Collection Method Collection Time Receive d Time (Source) Location / / Volume Laterality Blood specimen 08/10/2017 2:01 AM 018 2:01 (specimen) EST AM EST Yonathan Smith MD POINT OF CARE TEST ORDERABLE S Performing Organization Address City/[facility]/ZIP [place] [address] (ABNORMAL) POCT Glucose (08/09/2017 11:42 PM EST) athologist Signature POC Glucose 283 (H) 65 - 199 [facility] SU mg/dL [facility] LABORATORY Comment: Supplemental ranges: <140 mg/dL before meals <180 mg/dL all other times of the day Specimen Anatomical Collection Method Collection Time Receive d Time (Source) Location / / Volume Laterality Blood specimen 08/09/2017 11:42 8 (specimen) PM EST 11:42 PM EST Yonathan Smith MD POINT OF CARE TEST ORDERABLE S Performing Organization Address City/State/ZIP [place] [address] POCT Glucose (08/09/2017 8:55 PM EST) athologist Signature POC Glucose 182 65 - 199 [place] mg/dL [facility] LABORATORY Comment: Supplemental ranges: <140 mg/dL before meals <180 mg/dL all other times of the day Specimen Anatomical Collection Method Collection Time Receive d Time (Source) Location / / Volume Laterality Blood specimen 08/09/2017 8:55 PM 018 8:55 (specimen) EST PM EST Yonathan Smith MD POINT OF CARE TEST ORDERABLE S Performing Organization Address City/[facility]/ZIP [place] [address] (ABNORMAL) APTT (08/09/2017 6:42 [...] HEMATOLOGY ORDERABLES Performing Organization Address City/[facility]/ZIP [place] [address] POCT Glucose (08/09/2017 4:41 PM EST) athologist Signature POC Glucose 195 65 - 199 [facility] mg/dL [facility] LABOR[facility]ORY Comment: Supplemental ranges: <140 mg/dL before meals <180 mg/dL all other times of the day Specimen Anatomical Collection Method Collection Time Receive d Time (Source) Location / / Volume Laterality Blood specimen 08/09/2017 4:41 PM 018 4:41 (specimen) EST PM EST Yonathan Smith MD POINT OF CARE TEST ORDERABLE S Performing Organization Address City/[facility]/ZIP [place] [address] POCT Glucose (08/09/2017 12:29 PM EST) athologist Signature POC Glucose 140 65 - 199 [facility] mg/dL [facility] LAB[facility]ORY Comment: Supplemental ranges: <140 mg/dL before meals <180 mg/dL all other times of the day Specimen Anatomical Collection Method Collection Time Receive d Time (Source) Location / / Volume Laterality Blood specimen 08/09/2017 12:29 8 (specimen) PM EST 12:29 PM EST Yonathan Smith MD POINT OF CARE TEST ORDERABLE S Performing Organization Address [facility]/ZIP Code Phon e Number [address] POCT Glucose (08/09/2017 9:59 AM EST) P athologist Signature POC Glucose 135 65 - 199 [facility] mg/dL [facility] LABORATORY Comment: Supplemental ranges: <140 mg/dL before meals <180 mg/dL all other times of the day Specimen Anatomical Collection Method Collection Time Receive d Time (Source) Location / / Volume Laterality Blood specimen 08/09/2017 9:59 AM 018 9:59 (specimen) EST AM EST Yonathan Smith MD POINT OF CARE TEST ORDERABLE S Performing Organization Address [facility]/ZIP [place] [address] Specimen to Pathology (08/09/2017 [...] City/[facility]/ZIP [place] [address] Surgical Pathology Report (08/09/2017 8:40 AM EST) Component Value Ref Test Analysis Performed At Patholo gist Range Method Time Signature Surgical [id number] ? Location: [facility]; [facility]; A [facility] Report The signing pathologist [...] Verified: ??08/13/2017 ?Pathologist Performed at: ??-[facility] Dept. of Pathology, [place], [place] CLINICAL INFORMATION Specimen Submitted: A - [...] Organization Address City/State/[place] [address] Anaerobic Culture (08/09/2017 8:30 AM EST) [facility] Method Time Signature Anaerobic No anaerobic [place] Culture organisms [facility] LABORATORY Specimen Anatomical Collection Method [...] ORDER ROBSON Performing Organization Address City/[facility]/ZIP [place] [address] (ABNORMAL) Abscess/Wound Aspirate Culture (08/09/2017 8:30 AM EST) [facility] Method Time Signature Abscess/Wound Moderate mixed [facility] Aspirate bacterial [place] Culture morphotypes [facility] normal LABORATORY cutaneous leroy (A) Gram Stain Rare White Blood Cells [place] Few Gram Positive Cocci in pairs [place] () [facility] LABORATORY Organism Gram Positive [place] Cocci in pairs [place] () [facility] LABORATORY Specimen Anatomical Collection Method [...] ORDER ROBSON Performing Organization Address City/[facility]/ZIP Code [place] [address] POCT Glucose (08/09/2017 4:28 AM EST) P athologist Signature POC Glucose 128 65 - 199 [facility] mg/dL [facility] LABORATORY Comment: Supplemental ranges: <140 mg/dL before meals <180 mg/dL all other times of the day Specimen Anatomical Collection Method Collection Time Receive d Time (Source) Location / / Volume Laterality Blood specimen 08/09/2017 4:28 AM 018 4:28 (specimen) EST AM EST Yonathan Smith MD POINT OF CARE TEST ORDERABLE S Performing Organization Address City/State/ZIP [place] [address] ABORH Recheck Status (08/09/2017 1:10 AM EST) [facility] Method Time Signature ABORH Type Completed [facility] LABORATORY Specimen Anatomical Collection Method Collection Time Receive d Time (Source) Location / / Volume Laterality Blood specimen 08/09/2017 1:10 AM 018 1:35 (specimen) EST AM EST Resulting Agency Comment Spec In Lab Yonathan Smith MD BLOOD BANK ORDERABLES Performing Organization Address City/State/ZIP [place] [address] Antibody screen (08/09/2017 1:10 AM EST) [facility] Method [place] Signature Ab Screen Negative [facility] LABORATORY Expires at 08/12/2017 [facility] [id number] on: [facility] LABORATORY Specimen Anatomical Collection Method Collection Time Receive d Time (Source) Location / / Volume Laterality Blood specimen 08/09/2017 1:10 AM 018 1:35 (specimen) EST AM EST Resulting Agency Comment Spec In Lab Yonathan Smith MD BLOOD BANK ORDERABLES Performing Organization Address City/State/ZIP [place] [address] ABO/Rh Typing (08/09/2017 1:10 [...] Address City/State/Z[place] [address] (ABNORMAL) APTT (08/09/2017 1:10 [...] Organization Address City/State/[place] [address] (ABNORMAL) Differential, Automated (08/09/2017 1:10 AM EST) [facility] Method Time Signature Neutrophils % 76.2 % [facility] LABORATORY Neutr Abs (ANC) 8.59 (H) 1.70 - [facility] [address] [facility] x10(3)/[facility] LABORATORY Lymphocytes % 11.0 % [facility] LABORATORY Lymphocytes Abs 1.2 0.9 - 3.2 [facility] x10(3)/[facility] [place] LABORATORY Monocytes % 8.4 % [facility] LABORATORY Monocyte Abs 1.0 (H) 0.3 - 0.9 [facility] x10(3)/[facility] [place] LABORATORY Eosinophils % 3.5 % [facility] LABORATORY Eosinophils Abs 0.4 0.0 - 0.4 [facility] x10(3)/[facility] [place] LABORATORY Basophils % 0.5 % [facility] LABORATORY Basophils Abs 0.1 0.0 - 0.1 [facility] x10(3)/[facility] [place] LABORATORY Immature Gran % 0.40 % KERBS [...] Organization Address City/State/[place] [address] (ABNORMAL) Hemogram (08/09/2017 1:10 AM EST) Analysis Performed At Patho logist Time Signature WBC 11.3 (H) 4.0 - 9.5 [facility] x10(3)/[facility] LABORATORY RBC 3.47 (L) 4.58 - [facility] [address] [facility] x10(6)/[facility] LABORATORY Hemoglobin 10.0 (L) 13.7 - [facility] 16.5 gm/dL [facility]ORATORY Hematocrit 31.9 (L) 40.5 - [facility] 48.5 % [facility] MCV 91.9 82.9 - [facility] 93.1 [facility] LABORATORY MCH 28.8 27.5 - [facility] 32.1 pg [facility] LABORATORY MCHC 31.3 (L) 32.0 - [facility] 35.[facility] gm/dL [facility] LABORATORY Platelets 234 145 - 357 [facility] x10(3)/[facility] LABORATORY RDWSD 54.0 (H) 36.0 - [facility] SU 45.0 [facility] LABORATORY RDWCV 16.2 (H) 11.4 - [facility] SU 13.8 % [facility] LABORATORY MPV 8.7 7.6 - 12.9 [facility] LABORATORY nRBC % Auto 0.0 % [facility] LABORATORY nRBC Abs Auto 0.000 0.000 - [facility] SU 0.[address] [facility] x10(3)/[facility] LABORATORY Specimen Anatomical Collection Method Collection Time Receive d Time (Source) Location / / Volume Laterality Blood specimen 08/09/2017 1:10 AM 018 1:19 (specimen) EST AM EST Resulting Agency Comment Spec In Lab Yonathan Smith MD HEMATOLOGY ORDERABLES Performing Organization Address City/[facility]/ZIP [place] [address] (ABNORMAL) Prothrombin Time (08/09/2017 [...] HEMATOLOGY ORDERABLES Performing Organization Address City/[facility]/ZIP [place] [address] (ABNORMAL) Basic Metabolic Panel (non-fasting) (08/09/2017 1:10 AM EST) P athologist Signature Glucose Lvl 108 65 - 199 [facility] mg/dL [facility] LABORATORY Comment: Diabetes: >=200 [...] or in patients with acute kidney failure. http://[employer]/DHnkdep http://[employer]/DHMCnkf Specimen Anatomical Collection Method Collection Time Receive d Time (Source) Location / / Volume Laterality Blood specimen 08/09/2017 1:10 AM 018 1:19 (specimen) EST AM EST Resulting Agency Comment Spec In Lab Yonathan Smith MD CHEMISTRY ORDERABLES Performing Organization Address City/State/ZIP Code Phon e Number [address] POCT Glucose (08/09/2017 12:05 AM EST) athologist Signature POC Glucose 128 65 - 199 [facility] mg/dL [facility] LABORATORY Comment: Supplemental ranges: <140 mg/dL before meals <180 mg/dL all other times of the day Specimen Anatomical Collection Method Collection Time Receive d Time (Source) Location / / Volume Laterality Blood specimen 08/09/2017 12:05 8 (specimen) AM EST 12:05 AM EST Yonathan Smith MD POINT OF CARE TEST ORDERABLE S Performing Organization Address City/[facility]/ZIP [place] [address] (ABNORMAL) POCT Glucose (08/08/2017 7:36 PM EST) athologist Signature POC Glucose 215 (H) 65 - 199 [facility] mg/dL [facility] Comment: Supplemental ranges: <140 mg/dL before meals <180 mg/dL all other times of the day Specimen Anatomical Collection Method Collection Time Receive d Time (Source) Location / / Volume Laterality Blood specimen 08/08/2017 7:36 PM 018 7:36 (specimen) EST PM EST Yonathan Smith MD POINT OF CARE TEST ORDERABLE S Performing Organization Address City/State/ZIP [place] [address] (ABNORMAL) POCT Glucose (08/08/2017 6:23 PM EST) P athologist Signature POC Glucose 216 (H) 65 - 199 [facility] mg/dL [facility] Comment: Supplemental ranges: <140 mg/dL before meals <180 mg/dL all other times of the day Specimen Anatomical Collection Method Collection Time Receive d Time (Source) Location / / Volume Laterality Blood specimen 08/08/2017 6:23 PM 018 6:23 (specimen) EST PM EST Yonathan Smith MD POINT OF CARE TEST ORDERABLE S Performing Organization Address City/[facility]/ZIP [place] [address] (ABNORMAL) APTT (08/08/2017 6:00 [...] HEMATOLOGY ORDERABLES Performing Organization Address City/[facility]/ZIP [place] [address] POCT Glucose (08/08/2017 4:42 PM EST) athologist Signature POC Glucose 78 65 - 199 [facility] mg/dL [facility] LAB[facility]ORY Comment: Supplemental ranges: <140 mg/dL before meals <180 mg/dL all other times of the day Specimen Anatomical Collection Method Collection Time Receive d Time (Source) Location / / Volume Laterality Blood specimen 08/08/2017 4:42 PM 018 4:42 (specimen) EST PM EST Yonathan Smith MD POINT OF CARE TEST ORDERABLE S Performing Organization Address City/State/ZIP [place] [address] (ABNORMAL) POCT Glucose (08/08/2017 4:01 PM EST) athologist Signature POC Glucose 58 (L) 65 - 199 [facility] mg/dL [facility] LAB[facility] Comment: Supplemental ranges: <140 mg/dL before meals <180 mg/dL all other times of the day Specimen Anatomical Collection Method Collection Time Receive d Time (Source) Location / / Volume Laterality Blood specimen 08/08/2017 4:01 PM 018 4:01 (specimen) EST PM EST Yonathan Smith MD POINT OF CARE TEST ORDERABLE S Performing Organization Address City/State/ZIP [place] [address] POCT Glucose (08/08/2017 11:51 AM EST) athologist Signature POC Glucose 90 65 - 199 [facility] mg/dL [facility] Comment: Supplemental ranges: <140 mg/dL before meals <180 mg/dL all other times of the day Specimen Anatomical Collection Method Collection Time Receive d Time (Source) Location / / Volume Laterality Blood specimen 08/08/2017 11:51 8 (specimen) AM EST 11:51 AM EST Yonathan Smith MD POINT OF CARE TEST ORDERABLE S Performing Organization Address City/State/ZIP [place] [address] (ABNORMAL) APTT (08/08/2017 10:27 [...] Address City/State/ZIP Code Phon e Number [address] POCT Glucose (08/08/2017 8:02 AM EST) athologist Signature POC Glucose 178 65 - 199 [facility] mg/dL [facility] Comment: Supplemental ranges: <140 mg/dL before meals <180 mg/dL all other times of the day Specimen Anatomical Collection Method Collection Time Receive d Time (Source) Location / / Volume Laterality Blood specimen 08/08/2017 8:02 AM 018 8:02 (specimen) EST AM EST Yonathan Smith MD POINT OF CARE TEST ORDERABLE S Performing Organization Address City/[facility]/ZIP [place] [address] (ABNORMAL) APTT (08/08/2017 4:51 AM EST) athologist Signature PTT >160 25 - 35 [facility] (Critical) sec [facility] Comment: Called by: HOWARD, Read [...] Organization Address City/State/[place] [address] (ABNORMAL) Differential, Automated (08/08/2017 4:51 AM EST) [facility] gist Method Time Signature Neutrophils % 77.9 % [facility] Neutr Abs (ANC) 8.17 (H) 1.70 - [facility] 6.[address] [facility] x10(3)/[facility] LABORATORY Lymphocytes % 10.3 % [facility] Lymphocytes Abs 1.1 0.9 - 3.2 [facility] x10(3)/[facility] LABORATORY Monocytes % 7.0 % [facility] Monocyte Abs 0.7 0.3 - 0.9 [facility] x10(3)/[facility] LABORATORY Eosinophils % 3.6 % [facility] Eosinophils Abs 0.4 0.0 - 0.4 [facility] x10(3)/[facility] LABORATORY Basophils % 0.5 % [facility] Basophils Abs 0.0 0.0 - 0.1 [facility] x10(3)/[facility] LABORATORY Immature Gran % 0.70 % [facility] [...] Address City/State/ZIP [place] [address] (ABNORMAL) Hemogram (08/08/2017 4:51 AM EST) Analysis Performed At Patho logist Time Signature WBC 10.5 (H) 4.0 - 9.5 [facility] x[facility] LABORATORY RBC 3.27 (L) 4.58 - [place] [address] [facility] x10(6)/[facility] LABORATORY Hemoglobin 9.3 (L) 13.7 - [place] 16.5 gm/dL [facility] Hematocrit 30.3 (L) 40.5 - [facility] 48.5 % [facility] MCV 92.7 82.9 - [facility] 93.1 [facility] LABORATORY MCH 28.4 27.5 - [place] 32.1 pg [facility] MCHC 30.7 (L) 32.0 - [place] 35.7 gm/dL [facility] Platelets 252 145 - 357 [facility] x10(3)/[facility] LABORATORY RDWSD 54.6 (H) 36.0 - [facility] 45.0 [facility] LABORATORY RDWCV 16.2 (H) 11.4 - [facility] 13.8 % [facility] MPV 9.1 7.6 - 12.9 [place] LABORATORY nRBC % Auto 0.0 % [facility] nRBC Abs Auto 0.000 0.000 - [place] 0.[address] [facility] x10(3)/[facility] LABORATORY Specimen Anatomical Collection Method Collection Time Receive d Time (Source) Location / / Volume Laterality Blood specimen 08/08/2017 4:51 AM 018 5:14 (specimen) EST AM EST Resulting Agency Comment Spec In Lab Yonathan Smiht MD HEMATOLOGY ORDERABLES Performing Organization Address City/State/ZIP [place] [address] (ABNORMAL) Prothrombin Time (08/08/2017 [...] Organization Address City/State/[place] [address] (ABNORMAL) Basic Metabolic Panel (non-fasting) (08/08/2017 4:51 AM EST) athologist Signature Glucose Lvl 229 (H) 65 - 199 [facility] mg/dL [facility] Comment: Diabetes: >=200 [...] or in patients with acute kidney failure. [email or web address] [email or web address] Specimen Anatomical Collection Method Collection Time Receive d Time (Source) Location / / Volume Laterality Blood specimen 08/08/2017 4:51 AM 018 5:14 (specimen) EST AM EST Resulting Agency Comment Spec In Lab Yonathan Smith MD CHEMISTRY ORDERABLES Performing Organization Address City/[facility]/ZIP Code Phon e Number [address] POCT Glucose (08/08/2017 4:20 AM EST) athologist Signature POC Glucose 193 65 - 199 [facility] mg/dL [facility] Comment: Supplemental ranges: <140 mg/dL before meals <180 mg/dL all other times of the day Specimen Anatomical Collection Method Collection Time Receive d Time (Source) Location / / Volume Laterality Blood specimen 08/08/2017 4:20 AM 018 4:20 (specimen) EST AM EST Yonathan Smith MD POINT OF CARE TEST ORDERABLE S Performing Organization Address City/State/ZIP Code Phon e Number [address] POCT Glucose (08/07/2017 11:11 PM EST) athologist Signature POC Glucose 124 65 - 199 [facility] mg/dL [facility] Comment: Supplemental ranges: <140 mg/dL before meals <180 mg/dL all other times of the day Specimen Anatomical Collection Method Collection Time Receive d Time (Source) Location / / Volume Laterality Blood specimen 08/07/2017 11:11 8 (specimen) PM EST 11:11 PM EST Yonathan Smith MD POINT OF CARE TEST ORDERABLE S Performing Organization Address City/[facility]/ZIP [place] [address] (ABNORMAL) APTT (08/07/2017 10:18 [...] HEMATOLOGY ORDERABLES Performing Organization Address City/[facility]/ZIP [place] [address] POCT Glucose (08/07/2017 8:10 PM EST) athologist Signature POC Glucose 140 65 - 199 [facility] mg/dL [facility] Comment: Supplemental ranges: <140 mg/dL before meals <180 mg/dL all other times of the day Specimen Anatomical Collection Method Collection Time Receive d Time (Source) Location / / Volume Laterality Blood specimen 08/07/2017 8:10 PM 018 8:10 (specimen) EST PM EST Yonathan Smith MD POINT OF CARE TEST ORDERABLE S Performing Organization Address City/[facility]/ZIP [place] [address] POCT Glucose (08/07/2017 5:27 PM EST) athologist Signature POC Glucose 187 65 - 199 [facility] mg/dL [facility] Comment: Supplemental ranges: <140 mg/dL before meals <180 mg/dL all other times of the day Specimen Anatomical Collection Method Collection Time Receive d Time (Source) Location / / Volume Laterality Blood specimen 08/07/2017 5:27 PM 018 5:27 (specimen) EST PM EST Yonathan Smith MD POINT OF CARE TEST ORDERABLE S Performing Organization Address City/[facility]/ZIP [place] [address] POCT Glucose (08/07/2017 3:29 PM EST) athologist Signature POC Glucose 86 65 - 199 [facility] Comment: Supplemental ranges: <140 mg/dL before meals <180 mg/dL all other times of the day Specimen Anatomical Collection Method Collection Time Receive d Time (Source) Location / / Volume Laterality Blood specimen 08/07/2017 3:29 PM 018 3:29 (specimen) EST PM EST Yonathan Smith MD POINT OF CARE TEST ORDERABLE S Performing Organization Address [facility]/ZIP [facility] [place] [address] (ABNORMAL) APTT (08/07/2017 2:50 [...] HEMATOLOGY ORDERABLES Performing Organization Address City/[facility]/ZIP [facility] Phon e Number [address] (ABNORMAL) POCT Glucose (08/07/2017 2:23 PM EST) athologist Signature POC Glucose 55 (L) 65 - 199 [facility] mg/dL [facility] Comment: Supplemental ranges: <140 mg/dL before meals <180 mg/dL all other times of the day Specimen Anatomical Collection Method Collection Time Receive d Time (Source) Location / / Volume Laterality Blood specimen 08/07/2017 2:23 PM 018 2:23 (specimen) EST PM EST Yonathan Smith MD POINT OF CARE TEST ORDERABLE S Performing Organization Address City/State/ZIP Code Phon e Number [address] POCT Glucose (08/07/2017 12:08 PM EST) P athologist Signature POC Glucose 77 65 - 199 [facility] mg/dL [facility] Comment: Supplemental ranges: <140 mg/dL before meals <180 mg/dL all other times of the day Specimen Anatomical Collection Method Collection Time Receive d Time (Source) Location / / Volume Laterality Blood specimen 08/07/2017 12:08 8 (specimen) PM EST 12:08 PM EST Yonathan Smith MD POINT OF CARE TEST ORDERABLE S Performing Organization Address City/State/ZIP Code Phon e Number [address] (ABNORMAL) Differential, Automated (08/07/2017 7:30 AM EST) Patholo gist Method Time Signature Neutrophils % 73.8 % [facility] Neutr Abs (ANC) 7.17 (H) 1.70 - [facility] 6.[address] [facility] x10(3)/[facility] LABORATORY Lymphocytes % 12.2 % [facility] Lymphocytes Abs 1.2 0.9 - 3.2 [facility] x10(3)/[facility] LABORATORY Monocytes % 9.0 % [facility] Monocyte Abs 0.9 0.3 - 0.9 [facility] x10(3)/[facility] LABORATORY Eosinophils % 3.9 % [facility] Eosinophils Abs 0.4 0.0 - 0.4 [facility] x10(3)/[facility] LABORATORY Basophils % 0.6 % [facility] Basophils Abs 0.1 0.0 - 0.1 [facility] x10(3)/[facility] LABORATORY Immature Gran % 0.50 % [facility] [...] Organization Address City/State/[place] [address] (ABNORMAL) Hemogram (08/07/2017 7:30 AM EST) Analysis Performed At Patho logist Time Signature WBC 9.7 (H) 4.0 - 9.5 [facility] x10(3)/[facility] LABORATORY RBC 3.54 (L) 4.58 - [facility] 5.[address] [facility] x10(6)/[facility] LABORATORY Hemoglobin 9.9 (L) 13.7 - [facility] 16.[facility] gm/dL [facility] Hematocrit 32.3 (L) 40.5 - [facility] 48.5 % [facility] MCV 91.2 82.9 - [facility] 93.1 [facility] LABORATORY MCH 28.0 27.5 - [facility] 32.1 pg [facility] MCHC 30.7 (L) 32.0 - [facility] 35.7 gm/dL [facility] Platelets 312 145 - 357 [facility] x10(3)/[facility] LABORATORY RDWSD 53.2 (H) 36.0 - [facility] 45.0 [facility] LABORATORY RDWCV 16.0 (H) 11.4 - [facility] 13.8 % [facility] MPV 8.9 7.6 - 12.9 [facility] LABORATORY nRBC % Auto 0.0 % [facility] nRBC Abs Auto 0.000 0.000 - [facility] 0.[address] [facility] x10(3)/[facility] LABORATORY Specimen Anatomical Collection Method Collection Time Receive d Time (Source) Location / / Volume Laterality Blood specimen 08/07/2017 7:30 AM 018 7:45 (specimen) EST AM EST Resulting Agency Comment Spec In Lab Yonathan Smith MD HEMATOLOGY ORDERABLES Performing Organization Address City/State/[place] [address] (ABNORMAL) Basic Metabolic Panel (non-fasting) (08/07/2017 7:30 AM EST) P athologist Signature Glucose Lvl 80 65 - 199 [facility] mg/dL [facility] Comment: Diabetes: >=200 [...] or in patients with acute kidney failure. [email or web address] http://[employer]/DHMCnkf Specimen Anatomical Collection Method Collection Time Receive d Time (Source) Location / / Volume Laterality Blood specimen 08/07/2017 7:30 AM 018 7:45 (specimen) EST AM EST Resulting Agency Comment Spec In Lab Yonathan Smith MD CHEMISTRY ORDERABLES Performing Organization Address City/[facility] Phon e Number [address] POCT Glucose (08/07/2017 7:27 AM EST) athologist Signature POC Glucose 81 65 - 199 [facility] mg/dL [facility] Comment: Supplemental ranges: <140 mg/dL before meals <180 mg/dL all other times of the day Specimen Anatomical Collection Method Collection Time Receive d Time (Source) Location / / Volume Laterality Blood specimen 08/07/2017 7:27 AM 018 7:27 (specimen) EST AM EST Yonathan Smith MD POINT OF CARE TEST ORDERABLE S Performing Organization Address [facility] Phon e Number [address] APTT (08/07/2017 7:04 AM [...] HEMATOLOGY ORDERABLES Performing Organization Address City/[facility]/ZIP [place] [address] (ABNORMAL) Prothrombin Time (08/07/2017 [...] Address City/State/ZIP [place] [address] POCT Glucose (08/07/2017 4:03 AM EST) athologist Signature POC Glucose 93 65 - 199 [facility] mg/dL [facility] Comment: Supplemental ranges: <140 mg/dL before meals <180 mg/dL all other times of the day Specimen Anatomical Collection Method Collection Time Receive d Time (Source) Location / / Volume Laterality Blood specimen 08/07/2017 4:03 AM 018 4:03 (specimen) EST AM EST Yonathan Smith MD POINT OF CARE TEST ORDERABLE S Performing Organization Address City/State/ZIP [place] [address] POCT Glucose (08/07/2017 12:04 AM EST) athologist Signature POC Glucose 107 65 - 199 [facility] mg/dL [facility] Comment: Supplemental ranges: <140 mg/dL before meals <180 mg/dL all other times of the day Specimen Anatomical Collection Method Collection Time Receive d Time (Source) Location / / Volume Laterality Blood specimen 08/07/2017 12:04 8 (specimen) AM EST 12:04 AM EST Yonathan Smith MD POINT OF CARE TEST ORDERABLE S Performing Organization Address City/State/ZIP Code Phon e Number [address] POCT Glucose (08/06/2017 7:56 PM EST) P athologist Signature POC Glucose 178 65 - 199 [facility] mg/dL [facility] Comment: Supplemental ranges: <140 mg/dL before meals <180 mg/dL all other times of the day Specimen Anatomical Collection Method Collection Time Receive d Time (Source) Location / / Volume Laterality Blood specimen 08/06/2017 7:56 PM 018 7:56 (specimen) EST PM EST Yonathan Smith MD POINT OF CARE TEST ORDERABLE S Performing Organization Address City/State/ZIP Code Phon e Number [address] [id number] (08/06/2017 2:32 PM EST) Component Value Ref Test Analysis Performed At Patholo gist Range Method Time Signature VB Text Department: Vascular Surgery Lab VASCUBASE Report Patient: [id number] (GREGORY HOANG) CPT: [id number] ICD10: I99.8 Referring Physician: YONATHAN SMITH ?? [...] Mira Truong RN)1119 (Given - Provider: Dory Turong RN) 1,000 mg, Oral, EVERY 6 HOURS [...] 0454 (Given - P rovider: Henrique Marks RN)0821 (Given - Provider: Chiquis Mcgrath RN)1135 (Given [...] documented in this encounter Care Teams Digital Project Manager Relationship Specialty Start Date End Date Lovely Vicente MD PCP - General 04/16/[address] [place] [address] [address] [place] [address] documented as of this encounter
--- OUTSIDE RECORDS SUMMARY | 2022-05-20 09:35 | XMS_ITS | Encounter Summary ---
:1945 Author Organization [facility] [place] [address] Care Team Providers Name Role Phone Lovely Vicente MD Primary Care Provider Reason for Visit Auth/Cert Specialty Diagnoses / Procedures Referred By Contact Refer red To Contact Diagnoses Critical lower limb ischemia CELLULITIS RT FOOT Procedures EMERGENCY Referral ID Status Reason Start Date Expiration Date Visits Requ ested Visits Authorized [id number] 1 1 Encounter Details Date Type Department Care Team Description 08/11/2017 Surgery Main Operating Room Yonathan Smith (M SURG) DRESSING CHANGE Barbara Ocampo MD (FOR OTHER THAN IVAN) [facility] UNDER ANES. 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 Patient [...] Dorsalis Pedis (Ankle) Artery ?132 ? 0.94 ??Pettis-Biphasic ? Posterior Tibial (Ankle) Artery ??154 ? 1.10 ??Pettis-Biphasic ? Fourth Toe ? 67 ?0.48 ?? [...] For any problems or questions please call [phone] ZELDA Smith, cream dipper Nurse Clinician For issues on weeknights after 5pm and weekends please call [phone] and ask for the Vascular Fellow financial sales professional. General Instructions None Future Appointments and Orders Future Appointments Provider Department Dept Phone 08/26/2017 4:00 PM Aurelia Rivera PA [facility] [place] [phone] 09/07/2017 3:00 PM LAB, THREE L Lab 3L [facility] [phone] 09/07/2017 4:00 PM Luz Prescott MD Endocrinology [facility] [place] [phone] 09/09/2017 8:00 AM Barbra Soares APRN Pain Management [facility] [place] [phone] Please bring a list of your current [...] For any problems or questions please call [phone] ZELDA Smith, cream dipper Nurse Clinician For issues on weeknights after 5pm and weekends please call [phone] and ask for the Vascular Fellow financial sales professional. documented in this encounter Medications at [...] Note Patient Destination: [facility] ([facility]) [address] [place] [id number] Transportation: with (at bedside) Time of Discharge: by 12 noon Level of Care: swing Patient Aware: yes Family Notified: yes Md to call report to: Yissel Quintero SMOKE TESTER already called RN to call report to: [phone] Shirin Wolf Office of Care Management Pager [phone] Shirin Wagner RN - 08/16/2017 10:50 AM EST [facility] has offered pt swing bed. Pt and accept bed. will transport via car. SMOKE TESTER Yissel Quintero aware; d/c paperwork will be completed by 12 noon. [facility] requests pt arrival by 1400 today; SMOKE TESTER, RN, and family aware. SMOKE TESTER called [facility] and was told that they prefer pt to arrive with wound vac dressing applied but clamped. SMOKE TESTER applied new wound vac dressing. RN has [facility] number to call report. PASSR completed; SMOKE TESTER paged to request provider signature in highlighted space. Indigo from [facility] notified via email that home wound vac now cancelled; [facility] has picked up from room and order cancelled. Packet started and provided to community pharmacist. Medicare important message explained to patient, patient signed. Copy provided to patient and signature page to OCM for inclusion in pt EMR. Radha Georges - 08/16/2017 10:34 AM EST Office of Care Management/Structural Ironworker Patient Name: Gregory Hoang : 1945 Patient has been offered a swing bed at [facility]. The patient will be transported by private transportation. No MD to MD report necessary Please call Nursing Report to [phone], ask for stretching machine tender frame. Info to accompany patient: Narcotic Prescriptions Copies of Medication Administration Records and IV sheets for past 10 days. Plan: Structural Ironworker will be available to the patient and Creative Writing Teacher-RN and/or Supervisor Ornamental Ironworking for further assistance. Patient will be discharged to: [facility] [address] [place] [address] [id number] Radha Powers, Structural Ironworker Mira Black, VAMSI - 08/15/2017 10:05 PM EST [address] Flores to ask if he wanted to hold metoprolol dose. BP 95/58. OK to hold this dose Courtney Brito - 08/15/2017 3:26 PM EST Office of Care Management(OCM)/Structural Ironworker(RS)/ D/C Planning re : Patient is medically [...] status. 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 Vac in place. Rehab referrals ongoing. Can ambulate in hallway. Change VAC at bedside today. Naty Colindres RN - 08/14/2017 1:33 PM EST Patient Name: Gregory Hoang Patient Age: 72 y.o. Birthdate: 1945 Admit date: 08/06/2017 Attending Physician: Yonathan Smith MD We want him to go to a place for intensive therapy and not at a fci where he will be just sitting there and not getting any therapy. . Contacted by direct care RN, who said that patient and would like information about patient's referral to: [facility] PHONE: [phone] FAX: [phone] CM spoke with RS who said that [...] rehab. Await recommendations from PT. Covering pager #[phone]. 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 Educational Manager Kaitlin Saha, RN Pager #[phone] Payam Rosales - 08/13/2017 2:37 PM EST Drill Press Set Up Operator Radial Encounter Note Patient Name: Gregory Hoang : [id number] MR#: [id number] Admit Date: 08/06/2017 1:41 PM Hospital Day 7 days Narrative: Visited to introduce and assess acceptance of Drill Press Set Up Operator Radial services. Pt was awake, alert, oriented and in chair and family was there. Assessment:Patient coping positively with stresses of illness/hospitalization at this time. Pt says that he is hoping to get better and his family was there. Pt says that he has family care and supportand taking one day at time. Intervention and Outcome: Provided emotional support and encouraging presence. 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 A letter describing our affiliations was reviewed with them and theywere educated about their right to choose where referrals are placed. Patient requests referral to [facility]. PHONE: [phone] FAX: [phone]. And Home NPWT (Negative Pressure Wound Therapy) aka wound vac device made available to pt. Serial # confirmed. Reviewed [facility] Proof of Delivery/Assignment of Benefits Statement(POD/AOB) Form w patient or authorized agent signing on behalf of patient. Copy of POD/AOB provided to pt and other copy faxed to [employer] @ fax# [phone] Expected date of discharge: 08/12/2017. 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 Heparin gtt continues to run. [...] : 1945 AGE 72 y.o. Address: [address] [place] [address] [place] [address] (home) Mobile: Telephone Information: Referring Provider: No [...] performed by Yuan Retana MD at [facility] OR ??? 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 Unsuccessful draw attempt, another ornamental rail installer will come [facility] to collect blood for PTT test. 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 Vascular resident financial sales professional and will forward result to the team prior to rounds. 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 Patient [...] left blue toes with CTA showing R RUSTIC FENCE BUILDER pseudoaneurysm (now thrombosed) and occluded ATs bilaterally. [...] 2.5x80 5. Completion RLE angiogram 6. L RUSTIC FENCE BUILDER angiogram 7. 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 - L RUSTIC FENCE BUILDER angriogram demonstrated: High femoral bifurcation over the proximal half of the femoral head. L RUSTIC FENCE BUILDER access in the distal L RUSTIC FENCE BUILDER. - Closure device: Mynx Technical Procedure: The [...] for a 45cm 5F Destination. V18 and [place] and QuickCross catheters were used to select [...] 5F. A stationed picture of the L RUSTIC FENCE BUILDER was performed as the patient was noted to have a very high bifurcation. Access appeared in the distal R RUSTIC FENCE BUILDER. Closure and sheath removal was performed with [...] PM EST 1440 report called to 5 [place] nurse Tessa AGUSTIN documented in this encounter Miscellaneous Notes Plan of Care - Dory Truong RN - 08/16/2017 10:51 AM EST Problem: Patient Care Overview Goal: Plan of Care Review Outcome: Outcome (s) achieved Date Met: 08/16/17 08/14/17 1939 08/16/17 8191 Coping/Psychosocial Plan Of Care Reviewed With -- [...] sit/sit to supine -- Bed Mobility Goal, Seward Level independent -- Bed Mobility Goal, Date [...] days -- Transfer Training Goal, Activity Type fbm-vx-cuwim/ogjkz-sm-xqo -- Transfer Train Goal, Seward Level conditional independence -- Transfer Train Goal, [...] call cabello within reach, Hourly rounding by RN/CINEMA OPERATOR. Bed alarm / Chair alarm. Patient-specific [...] Operative Note Patient Name: Gregory Hoang : [id number] MR#: [id number] Case Date: 08/09/2017 Surgeon: Surgeon(s) and Role: [...] 2.5x80 5. Completion RLE angiogram 6. L RUSTIC FENCE BUILDER angiogram 7. Mynx closure Precautions/Restrictions: fall, sternal [...] other (see comments) (or swing bed) Pager: [phone] BASSAM ELIAS, PT 08/14/2017 Inpatient Physical Therapy [...] to Achieve by discharge Gait Training Goal, Seward Level conditional independence;set up required Gait Training [...] - 08/14/2017 11:51 AM EST Spoke with aBssam Elias PT who has seen patient and [...] HOSPITAL. CM spoke with [facility] KANWAL Sandhu RN who said that they do not anticipate any beds over the weekend. Reviewed with patient/ that they need to be aware that patient will need to take the first bed offered at the facilities that they make referrals to. Their choices are: 1- [facility] PHONE: [phone] FAX: [phone] 2- [facility] ([facility]) [address] [place] [address] 3- [facility])([facility]) [address] [place] [address] I have discussed Medicare/Private Insurance [...] RS/CM on Wednesday to follow-up. Covering pager #[phone] for today. Plan of Care - Henrique [...] with additional findings of pseudoaneurysm on R RUSTIC FENCE BUILDER and bilateral anterior tibial artery occlusions. Was [...] an outpatient once discharged. Have patient call [phone] to set up an appointment. Follow-up: Dermatology will sign-off for now. Please do not hesitate to contact us if you have any questions orconcerns. Impression and Recommendations discussed with primary team on 08/13/2017. Karo Henderson MD Resident in Dermatology Section of Dermatology, Department of Surgery [facility] Pager [phone] Patient seen and evaluated with staff Military Administrative Technician: Halima Cordero MD Section of Dermatology [facility] [...] 2.5x80 5. Completion RLE angiogram 6. L RUSTIC FENCE BUILDER angiogram 7. Mynx closure Active Non-Hospital Problems [...] home with home health ([facility] PT&OT) Pager: [phone] YASIR TELLO OT 08/12/2017 Occupational Therapy Rehabilitation [...] 2.5x80 5. Completion RLE angiogram 6. L RUSTIC FENCE BUILDER angiogram 7. Mynx closure Past Medical History: [...] with 24/7 assistance and maximal services) Pager: [phone] NICHOLAS MORA, JESSIE 08/12/2017 Physical Therapy Rehabilitation [...] sit/sit to supine -- Bed Mobility Goal, Seward Level independent -- Bed Mobility Goal, Outcome Achieved -- goal ongoing Goal: Gait Training Goal Stand Alone Therapy Goal Outcome: Ongoing (Interventions Implemented as Appropriate) 08/11/17 1310 08/12/17 1510 Gait Training Goal Gait Training Goal, Date Established 08/11/17 -- Gait Training Goal, Time to Achieve 5 - 7 days -- Gait Training Goal, Seward Level conditional independence -- Gait Training Goal, [...] days -- Transfer Training Goal, Activity Type dfp-ix-pqaxd/clfep-je-vjl -- Transfer Train Goal, Seward Level conditional independence -- Transfer Training Goal, [...] Operative Note Patient Name: Gregory Hoang : [id number] MR#: [id number] Case Date: 08/11/2017 Surgeon: Surgeon(s) and Role: [...] 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 Completion RLE angiogram 6. L RUSTIC FENCE BUILDER angiogram 7. Mynx closure He is very [...] Anticipated Discharge Disposition: inpatient rehabilitation facility Pager: [phone] LAWRENCE GONZALEZ, PT 08/11/2017 Physical Therapy Rehabilitation [...] to sit/sit to supine Bed Mobility Goal, Seward Level independent Goal: Gait Training Goal Stand Alone Therapy Goal Outcome: Ongoing (Interventions Implemented as Appropriate) 08/11/17 1310 Gait Training Goal Gait Training Goal, Date Established 08/11/17 Gait Training Goal, Time to Achieve 5 - 7 days Gait Training Goal, Seward Level conditional independence Gait Training Goal, Assist [...] 7 days Transfer Training Goal, Activity Type tcm-tz-phirp/given-qn-ayn Transfer Train Goal, Seward Level conditional independence Plan of Care - [...] call cabello within reach, Hourly rounding by RN/CINEMA OPERATOR. Bed alarm / Chair alarm. ? [...] Care Planning: on file Kisha Hoang [facility] [phone] Current Coping/Education/Information Needs: pt and spouse state [...] Health/Prescription Coverage: Primary Insurance: MEDICARE Secondary Insurance: [place]with [place] Prescription Coverage: See above Preferred Pharmacy: [facility] Other: N/A Primary Care Provider: Lovely Vicente MD [phone] Patient/Caregiver Goals of Treatment: Patient plans to [...] of care planning. Kaitlin Saha RN Pager: [phone] Plan of Care - Melba Jaramillo RN [...] Overview Goal: Plan of Care Review 08/08/17 9574 Coping/Psychosocial Plan Of Care Reviewed With patient [...] call cabello within reach, Hourly rounding by RN/CINEMA OPERATOR. Bed alarm / Chair alarm. Patient-specific [...] at bedside and MD TEAM Carrying pager [phone] contacted (via Radio page) and notified of [...] MD [facility] [place], [place] [address] (Wo rk) 05/28/2022 Laboratory Appointment Lab 05/28/2022 Office Visit Cardiology Zulma Dolan MD [facility] [place] [address] Liz Poole PA [facility] [place] [address] 06/10/2022 Office Visit Dermatology Laura Scherer MD [facility] DR TEJA [place], [place] [address] (Wo rk) documented as of [...] 160 65 - 199 [place] mg/dL [facility] Comment: Supplemental ranges: <140 mg/dL before meals <180 mg/dL all other times of the day Specimen Anatomical Collection Method Collection Time Receive d Time (Source) Location / / Volume Laterality Blood specimen 08/16/2017 7:28 AM 018 7:28 (specimen) EST AM EST Yonathan Smith MD POINT OF CARE TEST ORDERABLE S Performing Organization Address City/State/[place] [address] (ABNORMAL) Differential, Automated (08/16/2017 5:08 AM EST) [facility] Method Time Signature Neutrophils % 73.9 % [facility] Neutr Abs (ANC) 5.37 1.70 - [facility] 6.10 [facility] x10(3)/[facility] LABORATORY Lymphocytes % 10.1 % [facility] Lymphocytes Abs 0.7 (L) 0.9 - 3.2 [facility] x10(3)/[facility] LABORATORY Monocytes % 10.1 % [facility] Monocyte Abs 0.7 0.3 - 0.9 [facility] x10(3)/[facility] LABORATORY Eosinophils % 5.1 % [facility] Eosinophils Abs 0.4 0.0 - 0.4 [facility] x10(3)/[facility] LABORATORY Basophils % 0.4 % [facility] Basophils Abs 0.0 0.0 - 0.1 [facility] x10(3)/[facility] LABORATORY Immature [...] 0.00 - 0.04 x10(3)/[facility] Y [facility] LABOR[facility]ORY Specimen Anatomical Collection Method Collection Time Receive d Time (Source) Location / / Volume Laterality Blood specimen 08/16/2017 5:08 AM 018 5:20 (specimen) EST AM EST Resulting Agency Comment Spec In Lab Yonathan Smith MD HEMATOLOGY ORDERABLES Performing Organization Address City/State/[place] [address] (ABNORMAL) Hemogram (08/16/2017 5:08 AM EST) Analysis Performed At Patho logist Time Signature WBC 7.3 4.0 - 9.5 [place] x10(3)/[facility] LABORATORY RBC 3.36 (L) 4.58 - [place] 5.54 [facility] x10(6)/[facility] LABORATORY Hemoglobin 9.7 (L) 13.7 - [facility] 16.5 gm/dL [facility] Hematocrit 30.3 (L) 40.5 - [place] 48.5 % [facility] MCV 90.2 82.9 - [facility] 93.1 [facility] LABORATORY MCH 28.9 27.5 - [place] 32.1 pg [facility] MCHC 32.0 32.0 - [place] 35.7 gm/dL [facility] Platelets 282 145 - 357 [facility] x[facility](3[facility] LABORATORY RDWSD 53.9 (H) 36.0 - [place] 45.0 [facility] LABORATORY RDWCV 16.5 (H) 11.4 - [place] 13.8 % [facility] MPV 9.0 7.6 - 12.9 [place] [facility] LABORATORY nRBC % Auto 0.0 % [facility] nRBC Abs Auto 0.000 0.000 - [place] 0.000 [facility] x10(3)/[facility] LABORATORY Specimen Anatomical Collection Method Collection Time Receive d Time (Source) Location / / Volume Laterality Blood specimen 08/16/2017 5:08 AM 018 5:20 (specimen) EST AM EST Resulting Agency Comment Spec In Lab Yonathan Smith MD HEMATOLOGY ORDERABLES Performing Organization Address City/State/ZIP Code Phon e Number [place] [id number] [address] (ABNORMAL) Basic Metabolic Panel (non-fasting) (08/16/2017 5:08 AM EST) P athologist Signature Glucose Lvl 141 65 - 199 [facility] mg/dL [facility] Comment: Diabetes: >=200 [...] or in patients with acute kidney failure. [email or web address] Specimen Anatomical Collection Method Collection Time Receive d Time (Source) Location / / Volume Laterality Blood specimen 08/16/2017 5:08 AM 018 5:20 (specimen) EST AM EST Resulting Agency Comment Spec In Lab Yonathan Smith MD CHEMISTRY ORDERABLES Performing Organization Address City/State/[place] [address] (ABNORMAL) Prothrombin Time (08/16/2017 [...] Smith MD HEMATOLOGY ORDERABLES Performing Organization Address City/[facility]/ZIP Code Phon e Number [address] POCT Glucose (08/16/2017 4:09 AM EST) athologist Signature POC Glucose 147 65 - 199 [facility] mg/dL [facility] Comment: Supplemental ranges: <140 mg/dL before meals <180 mg/dL all other times of the day Specimen Anatomical Collection Method Collection Time Receive d Time (Source) Location / / Volume Laterality Blood specimen 08/16/2017 4:09 AM 018 4:09 (specimen) EST AM EST Yonathan Smith MD POINT OF CARE TEST ORDERABLE S Performing Organization Address City/[facility]/ZIP Code Phon e Number [address] POCT Glucose (08/15/2017 11:56 PM EST) athologist Signature POC Glucose 176 65 - 199 [facility] mg/dL [facility] Comment: Supplemental ranges: <140 mg/dL before meals <180 mg/dL all other times of the day Specimen Anatomical Collection Method Collection Time Receive d Time (Source) Location / / Volume Laterality Blood specimen 08/15/2017 11:56 8 (specimen) PM EST 11:56 PM EST Yonathan Smith MD POINT OF CARE TEST ORDERABLE S Performing Organization Address City/[facility]/ZIP Code Phon e Number [address] POCT Glucose (08/15/2017 8:05 PM EST) athologist Signature POC Glucose 136 65 - 199 [place] mg/dL [facility] Comment: Supplemental ranges: <140 mg/dL before meals <180 mg/dL all other times of the day Specimen Anatomical Collection Method Collection Time Receive d Time (Source) Location / / Volume Laterality Blood specimen 08/15/2017 8:05 PM 018 8:05 (specimen) EST PM EST Yonathan Smith MD POINT OF CARE TEST ORDERABLE S Performing Organization Address City/State/[place] [address] (ABNORMAL) POCT Glucose (08/15/2017 4:50 PM EST) athologist Signature POC Glucose 232 (H) 65 - 199 [facility] mg/dL [facility] Comment: Supplemental ranges: <140 mg/dL before meals <180 mg/dL all other times of the day Specimen Anatomical Collection Method Collection Time Receive d Time (Source) Location / / Volume Laterality Blood specimen 08/15/2017 4:50 PM 018 4:50 (specimen) EST PM EST Yonathan Smith MD POINT OF CARE TEST ORDERABLE S Performing Organization Address City/State/[place] [address] POCT Glucose (08/15/2017 12:04 PM EST) athologist Signature POC Glucose 135 65 - 199 [place] mg/dL [facility] LABORATORY Comment: Supplemental ranges: <140 mg/dL before meals <180 mg/dL all other times of the day Specimen Anatomical Collection Method Collection Time Receive d Time (Source) Location / / Volume Laterality Blood specimen 08/15/2017 12:04 8 (specimen) PM EST 12:04 PM EST Yonathan Smith MD POINT OF CARE TEST ORDERABLE S Performing Organization Address City/State/[place] [address] POCT Glucose (08/15/2017 7:36 AM EST) P athologist Signature POC Glucose 124 65 - 199 [facility] mg/dL [facility] LABOR[facility]ORY Comment: Supplemental ranges: <140 mg/dL before meals <180 mg/dL all other times of the day Specimen Anatomical Collection Method Collection Time Receive d Time (Source) Location / / Volume Laterality Blood specimen 08/15/2017 7:36 AM 018 7:36 (specimen) EST AM EST Yonathan Smith MD POINT OF CARE TEST ORDERABLE S Performing Organization Address City/State/[place] [address] (ABNORMAL) Differential, Automated (08/15/2017 6:22 AM EST) Patholo gist Method Time Signature Neutrophils % 76.1 % [facility] LABORATORY Neutr Abs (ANC) 6.62 (H) 1.70 - [facility] 6.10 [facility] x10(3)/[facility] L LABORATORY Lymphocytes % 9.3 % [facility] LABORATORY Lymphocytes Abs 0.8 (L) 0.9 - 3.2 [facility] x10(3)/[facility] LABORATORY Monocytes % 9.4 % [facility] LABORATORY Monocyte Abs 0.8 0.3 - 0.9 [facility] x10(3)/[facility] LABORATORY Eosinophils % 4.0 % [facility] LABORATORY Eosinophils Abs 0.4 0.0 - 0.4 [facility] x10(3)/[facility] LABORATORY Basophils % 0.6 % [facility] LABORATORY Basophils Abs 0.0 0.0 - 0.1 [facility] x10(3)/[facility] LABORATORY Immature [...] Abs 0.05 (H) 0.00 - 0.04 x10(3)/[facility] LABORATORY Specimen Anatomical Collection Method Collection Time Receive d Time (Source) Location / / Volume Laterality Blood specimen 08/15/2017 6:22 AM 018 6:33 (specimen) EST AM EST Resulting Agency Comment Spec In Lab Yonathan Smith MD HEMATOLOGY ORDERABLES Performing Organization Address City/State/[place] [address] (ABNORMAL) Hemogram (08/15/2017 6:22 AM EST) Analysis Performed At Patho logist Time Signature WBC 8.7 4.0 - 9.5 [facility] x10(3)/[facility] LABORATORY RBC 3.21 (L) 4.58 - [facility] 5.54 [facility] x10(6)/[facility] LABORATORY Hemoglobin 9.1 (L) 13.7 - [facility] 16.5 gm/dL [facility] Hematocrit 29.0 (L) 40.5 - [facility] 48.5 % [facility] MCV 90.3 82.9 - [facility] 93.1 [facility] LABORATORY MCH 28.3 27.5 - [facility] 32.1 pg [facility] MCHC 31.4 (L) 32.0 - [facility] 35.7 gm/dL [facility] Platelets 254 145 - 357 [facility] x10(3)/[facility] LABORATORY RDWSD 53.9 (H) 36.0 - [facility] 45.0 [facility] LABORATORY RDWCV 16.3 (H) 11.4 - [facility] 13.8 % [facility] LABORATORY MPV 8.8 7.6 - 12.9 [facility] LABORATORY nRBC % Auto 0.0 % [facility] LABORATORY nRBC Abs Auto 0.000 0.000 - [facility] 0.000 [facility] x10(3)/[facility] LABORATORY Specimen Anatomical Collection Method Collection Time Receive d Time (Source) Location / / Volume Laterality Blood specimen 08/15/2017 6:22 AM 018 6:33 (specimen) EST AM EST Resulting Agency Comment Spec In Lab Yonathan Smith MD HEMATOLOGY ORDERABLES Performing Organization Address City/State/Z[place] [address] (ABNORMAL) Basic Metabolic Panel (non-fasting) (08/15/2017 6:22 AM EST) P athologist Signature Glucose Lvl 118 65 - 199 [facility] mg/dL [facility]OR[facility]ORY Comment: Diabetes: >=200 [...] [facility] LABORATORY Estimated GFR >60 >=60 [facility] LABORATORY Comment: The reported eGFR should be multiplied b y 1.2 for patients. The MDRD is not an appropriate measure o f renal function for patients with body mass extremes or in patients with acute kidney failure. [email or web address] [email or web address] Specimen Anatomical Collection Method Collection Time Receive d Time (Source) Location / / Volume Laterality Blood specimen 08/15/2017 6:22 AM 018 6:33 (specimen) EST AM EST Resulting Agency Comment Spec In Lab Yonathan Smith MD CHEMISTRY ORDERABLES Performing Organization Address City/State/[place] [address] (ABNORMAL) Prothrombin Time (08/15/2017 [...] Smith MD HEMATOLOGY ORDERABLES Performing Organization Address City/[facility]/[place] [address] POCT Glucose (08/15/2017 4:33 AM EST) athologist Signature POC Glucose 164 65 - 199 [facility] mg/dL [facility] Comment: Supplemental ranges: <140 mg/dL before meals <180 mg/dL all other times of the day Specimen Anatomical Collection Method Collection Time Receive d Time (Source) Location / / Volume Laterality Blood specimen 08/15/2017 4:33 AM 018 4:33 (specimen) EST AM EST Yonathan Smith MD POINT OF CARE TEST ORDERABLE S Performing Organization Address City/State/[place] [address] POCT Glucose (08/15/2017 12:12 AM EST) athologist Signature POC Glucose 89 65 - 199 [facility] mg/dL [facility] Comment: Supplemental ranges: <140 mg/dL before meals <180 mg/dL all other times of the day Specimen Anatomical Collection Method Collection Time Receive d Time (Source) Location / / Volume Laterality Blood specimen 08/15/2017 12:12 8 (specimen) AM EST 12:12 AM EST Yonathan Smith MD POINT OF CARE TEST ORDERABLE S Performing Organization Address City/State/[place] [address] (ABNORMAL) POCT Glucose (08/14/2017 8:07 PM EST) athologist Signature POC Glucose 204 (H) 65 - 199 [facility] mg/dL [facility] Comment: Supplemental ranges: <140 mg/dL before meals <180 mg/dL all other times of the day Specimen Anatomical Collection Method Collection Time Receive d Time (Source) Location / / Volume Laterality Blood specimen 08/14/2017 8:07 PM 018 8:07 (specimen) EST PM EST Yonathan Smith MD POINT OF CARE TEST ORDERABLE S Performing Organization Address City/State/[place] [address] POCT Glucose (08/14/2017 5:11 PM EST) athologist Signature POC Glucose 174 65 - 199 [facility] mg/dL [facility] Comment: Supplemental ranges: <140 mg/dL before meals <180 mg/dL all other times of the day Specimen Anatomical Collection Method Collection Time Receive d Time (Source) Location / / Volume Laterality Blood specimen 08/14/2017 5:11 PM 018 5:11 (specimen) EST PM EST Yonathan Smith MD POINT OF CARE TEST ORDERABLE S Performing Organization Address City/State/[place] [address] POCT Glucose (08/14/2017 12:10 PM EST) athologist Signature POC Glucose 141 65 - 199 [facility] mg/dL [facility] Comment: Supplemental ranges: <140 mg/dL before meals <180 mg/dL all other times of the day Specimen Anatomical Collection Method Collection Time Receive d Time (Source) Location / / Volume Laterality Blood specimen 08/14/2017 12:10 8 (specimen) PM EST 12:10 PM EST Yonathan Smith MD POINT OF CARE TEST ORDERABLE S Performing Organization Address City/State/[place] [address] POCT Glucose (08/14/2017 8:07 AM EST) P athologist Signature POC Glucose 158 65 - 199 [facility] mg/dL [facility] Comment: Supplemental ranges: <140 mg/dL before meals <180 mg/dL all other times of the day Specimen Anatomical Collection Method Collection Time Receive d Time (Source) Location / / Volume Laterality Blood specimen 08/14/2017 8:07 AM 018 8:07 (specimen) EST AM EST Yonathan Smith MD POINT OF CARE TEST ORDERABLE S Performing Organization Address City/State/[place] [address] (ABNORMAL) Differential, Automated (08/14/2017 4:52 AM EST) Patholo gist Method Time Signature Neutrophils % 78.6 % [facility] LABORATORY Neutr Abs (ANC) 7.70 (H) 1.70 - [facility] 6.10 [facility] x10(3)/[facility] L LABORATORY Lymphocytes % 7.8 % [facility] LABORATORY Lymphocytes Abs 0.8 (L) 0.9 - 3.2 [facility] x10(3)/[facility] LABORATORY Monocytes % 8.8 % [facility] LABORATORY Monocyte Abs 0.9 0.3 - 0.9 [facility] x10(3)/[facility] LABORATORY Eosinophils % 4.0 % [facility] LABORATORY Eosinophils Abs 0.4 0.0 - 0.4 [facility] x10(3)/[facility] LABORATORY Basophils % 0.5 % [facility] LABORATORY Basophils Abs 0.0 0.0 - 0.1 [facility] x10(3)/[facility] LABORATORY Immature [...] Melisa Gran Abs 0.03 0.00 - 0.04 x10(3)/[facility] LABORATORY Specimen Anatomical Collection Method Collection Time Receive d Time (Source) Location / / Volume Laterality Blood specimen 08/14/2017 4:52 AM 018 5:08 (specimen) EST AM EST Resulting Agency Comment Spec In Lab Yonathan Smith MD HEMATOLOGY ORDERABLES Performing Organization Address City/State/[place] [address] (ABNORMAL) Hemogram (08/14/2017 4:52 AM EST) Analysis Performed At Patho logist Time Signature WBC 9.8 (H) 4.0 - 9.5 [facility] x10(3)/[facility] LABORATORY RBC 3.32 (L) 4.58 - [facility] 5.54 [facility] x10(6)/[facility] LABORATORY Hemoglobin 9.5 (L) 13.7 - [facility] 16.5 gm/dL [facility] Hematocrit 30.3 (L) 40.5 - [facility] 48.5 % [facility] MCV 91.3 82.9 - [facility] 93.1 [facility] LABORATORY MCH 28.6 27.5 - [facility] 32.1 pg [facility] LABORATORY MCHC 31.4 (L) 32.0 - [facility] 35.7 gm/dL [facility] Platelets 263 145 - 357 [facility] x10(3)/[facility] LABORATORY RDWSD 54.8 (H) 36.0 - [facility] 45.0 [facility] LABORATORY RDWCV 16.5 (H) 11.4 - [facility] 13.8 % [facility] LABORATORY MPV 9.1 7.6 - 12.9 [facility] LABORATORY nRBC % Auto 0.0 % [facility] LABORATORY nRBC Abs Auto 0.000 0.000 - [facility] 0.000 [facility] x10(3)/[facility] LABORATORY Specimen Anatomical Collection Method Collection Time Receive d Time (Source) Location / / Volume Laterality Blood specimen 08/14/2017 4:52 AM 018 5:08 (specimen) EST AM EST Resulting Agency Comment Spec In Lab Yonathan Smith MD HEMATOLOGY ORDERABLES Performing Organization Address City/State/[place] [address] (ABNORMAL) Prothrombin Time (08/14/2017 [...] Organization Address City/State/[place] [address] (ABNORMAL) Basic Metabolic Panel (non-fasting) (08/14/2017 4:52 AM EST) P athologist Signature Glucose Lvl 135 65 - 199 [facility] mg/dL [facility] Comment: Diabetes: >=200 [...] or in patients with acute kidney failure. [email or web address] [email or web address] Specimen Anatomical Collection Method Collection Time Receive d Time (Source) Location / / Volume Laterality Blood specimen 08/14/2017 4:52 AM 018 5:08 (specimen) EST AM EST Resulting Agency Comment Spec In Lab Yonathan Smith MD CHEMISTRY ORDERABLES Performing Organization Address City/State/Z[place] [address] POCT Glucose (08/14/2017 3:56 AM EST) P athologist Signature POC Glucose 135 65 - 199 [facility] mg/dL [facility] Comment: Supplemental ranges: <140 mg/dL before meals <180 mg/dL all other times of the day Specimen Anatomical Collection Method Collection Time Receive d Time (Source) Location / / Volume Laterality Blood specimen 08/14/2017 3:56 AM 018 3:56 (specimen) EST AM EST Yonathan Smith MD POINT OF CARE TEST ORDERABLE S Performing Organization Address City/State/ZIP Code Phon e Number [address] POCT Glucose (08/13/2017 11:13 PM EST) athologist Signature POC Glucose 118 65 - 199 [facility] mg/dL [facility] Comment: Supplemental ranges: <140 mg/dL before meals <180 mg/dL all other times of the day Specimen Anatomical Collection Method Collection Time Receive d Time (Source) Location / / Volume Laterality Blood specimen 08/13/2017 11:13 8 (specimen) PM EST 11:13 PM EST Yonathan Smith MD POINT OF CARE TEST ORDERABLE S Performing Organization Address City/[facility]/[place] [address] (ABNORMAL) POCT Glucose (08/13/2017 8:08 PM EST) athologist Signature POC Glucose 204 (H) 65 - 199 [facility] mg/dL [facility] Comment: Supplemental ranges: <140 mg/dL before meals <180 mg/dL all other times of the day Specimen Anatomical Collection Method Collection Time Receive d Time (Source) Location / / Volume Laterality Blood specimen 08/13/2017 8:08 PM 018 8:08 (specimen) EST PM EST Yonathan Smith MD POINT OF CARE TEST ORDERABLE S Performing Organization Address City/State/[place] [address] POCT Glucose (08/13/2017 4:02 PM EST) athologist Signature POC Glucose 145 65 - 199 [facility] mg/dL [facility] Comment: Supplemental ranges: <140 mg/dL before meals <180 mg/dL all other times of the day Specimen Anatomical Collection Method Collection Time Receive d Time (Source) Location / / Volume Laterality Blood specimen 08/13/2017 4:02 PM 018 4:02 (specimen) EST PM EST Yonathan Smith MD POINT OF CARE TEST ORDERABLE S Performing Organization Address City/State/[place] [address] POCT Glucose (08/13/2017 11:31 AM EST) athologist Signature POC Glucose 179 65 - 199 [facility] mg/dL [facility] Comment: Supplemental ranges: <140 mg/dL before meals <180 mg/dL all other times of the day Specimen Anatomical Collection Method Collection Time Receive d Time (Source) Location / / Volume Laterality Blood specimen 08/13/2017 11:31 8 (specimen) AM EST 11:31 AM EST Yonathan Smith MD POINT OF CARE TEST ORDERABLE S Performing Organization Address City/[facility]/[place] [address] (ABNORMAL) POCT Glucose (08/13/2017 10:16 AM EST) athologist Signature POC Glucose 211 (H) 65 - 199 [facility] mg/dL [facility] Comment: Supplemental ranges: <140 mg/dL before meals <180 mg/dL all other times of the day Specimen Anatomical Collection Method Collection Time Receive d Time (Source) Location / / Volume Laterality Blood specimen 08/13/2017 10:16 8 (specimen) AM EST 10:16 AM EST Yonathan Smith MD POINT OF CARE TEST ORDERABLE S Performing Organization Address City/[facility]/[place] [address] JULIAN, legs, multiple levels (08/13/2017 7:42 AM EST) Component Value Ref Test Analysis Performed At Patholo gist Range Method Time Signature VB Text Department: Vascular Surgery Lab VASCUBASE Report Patient: [id number] (GREGORY HOANG) CPT: 43982 ICD10: I99.8 Referring Physician: YONATHAN SMITH ?? Indications: s/p R 1,2,3 toe amps with red left foot, need n ew baseline Diabetes mellitus: yes ICD10 Diagnosis Code: I99.8 Findings: Right ?Pressure (mm Hg) ?? JULIAN ??Waveform ?TBI ?? Brachial Artery ?138 ? Dorsalis Pedis (Ankle) Arter y ?132 ? 0.94 ??Pettis- Biphasic ? Posterior Tibial (Ankle) Art anila ??154 ? 1.10 ??Pettis-Biphasic ? Fourth Toe ? 67 ? 0.48 [...] Glucose 156 65 - 199 [facility] mg/dL [facility] Comment: Supplemental ranges: <140 mg/dL before meals <180 mg/dL all other times of the day Specimen Anatomical Collection Method Collection Time Receive d Time (Source) Location / / Volume Laterality Blood specimen 08/13/2017 7:33 AM 018 7:33 (specimen) EST AM EST Yonathan Smith MD POINT OF CARE TEST ORDERABLE S Performing Organization Address City/State/ZIP Code Phon e Number [place] [id number] (ABNORMAL) Differential, Automated (08/13/2017 5:33 AM EST) [facility] Method Time Signature Neutrophils % 77.8 % [facility] LABORATORY Neutr Abs (ANC) 7.83 (H) 1.70 - [facility] 6.10 [facility] x10(3)/[facility] L LABORATORY Lymphocytes % 8.4 % [facility] LABORATORY Lymphocytes Abs 0.8 (L) 0.9 - 3.2 [facility] x10(3)/[facility] LABORATORY Monocytes % 8.3 % [facility] LABORATORY Monocyte Abs 0.8 0.3 - 0.9 [facility] x10(3)/[facility] LABORATORY Eosinophils % 4.6 % [facility] LABORATORY Eosinophils Abs 0.5 (H) 0.0 - 0.4 [facility] x10(3)/[facility] LABORATORY Basophils % 0.5 % [facility] LABORATORY Basophils Abs 0.0 0.0 - 0.1 [facility] x10(3)/[facility] LABORATORY Immature [...] Organization Address City/State/Z[place] [address] (ABNORMAL) Hemogram (08/13/2017 5:33 AM EST) Analysis Performed At Patho logist Time Signature WBC 10.1 (H) 4.0 - 9.5 [facility] x10(3)/[facility] LABORATORY RBC 3.21 (L) 4.58 - [facility] 5.54 [facility] x10(6)/[facility] LABORATORY Hemoglobin 9.2 (L) 13.7 - [facility] 16.5 gm/dL [facility] Hematocrit 29.6 (L) 40.5 - [facility] 48.5 % [facility] LABORATORY MCV 92.2 82.9 - [facility] 93.1 [facility] LABORATORY MCH 28.7 27.5 - [facility] 32.1 pg [facility] LABORATORY MCHC 31.1 (L) 32.0 - [facility] 35.7 gm/dL [facility] LABORATORY Platelets 263 145 - 357 [facility] x10(3)/[facility] LABORATORY RDWSD 54.8 (H) 36.0 - [facility] 45.0 [facility] LABORATORY RDWCV 16.4 (H) 11.4 - [facility] 13.8 % [facility] LABORATORY MPV 9.2 7.6 - 12.9 [facility] LABORATORY nRBC % Auto 0.0 % [facility] LABORATORY nRBC Abs Auto 0.000 0.000 - [facility] 0.000 [facility] x10(3)/[facility] LABORATORY Specimen Anatomical Collection Method Collection Time Receive d Time (Source) Location / / Volume Laterality Blood specimen 08/13/2017 5:33 AM 018 6:04 (specimen) EST AM EST Resulting Agency Comment Spec In Lab Yonathan Smith MD HEMATOLOGY ORDERABLES Performing Organization Address City/State/[place] [address] (ABNORMAL) Prothrombin Time (08/13/2017 [...] Organization Address City/State/[place] [address] (ABNORMAL) Basic Metabolic Panel (non-fasting) (08/13/2017 5:33 AM EST) athologist Signature Glucose Lvl 126 65 - 199 [facility] mg/dL [facility] Comment: Diabetes: >=200 [...] or in patients with acute kidney failure. [email or web address] [email or web address] Specimen Anatomical Collection Method Collection Time Receive d Time (Source) Location / / Volume Laterality Blood specimen 08/13/2017 5:33 AM 018 6:04 (specimen) EST AM EST Resulting Agency Comment Spec In Lab Yonathan Smith MD CHEMISTRY ORDERABLES Performing Organization Address City/[facility]/ZIP Code Phon e Number [address] POCT Glucose (08/13/2017 4:29 AM EST) athologist Signature POC Glucose 111 65 - 199 [facility]dL [facility]ORY Comment: Supplemental ranges: <140 mg/dL before meals <180 mg/dL all other times of the day Specimen Anatomical Collection Method Collection Time Receive d Time (Source) Location / / Volume Laterality Blood specimen 08/13/2017 4:29 AM 018 4:29 (specimen) EST AM EST Yonathan Smith MD POINT OF CARE TEST ORDERABLE S Performing Organization Address City/[facility]/ZIP Code Phon e Number [address] POCT Glucose (08/12/2017 11:28 PM EST) athologist Signature POC Glucose 164 65 - 199 [facility] mg/dL [facility] Comment: Supplemental ranges: <140 mg/dL before meals <180 mg/dL all other times of the day Specimen Anatomical Collection Method Collection Time Receive d Time (Source) Location / / Volume Laterality Blood specimen 08/12/2017 11:28 8 (specimen) PM EST 11:28 PM EST Yonathan Smith MD POINT OF CARE TEST ORDERABLE S Performing Organization Address City/[facility]/[place] [address] (ABNORMAL) POCT Glucose (08/12/2017 7:40 PM EST) athologist Signature POC Glucose 209 (H) 65 - 199 [facility] mg/dL [facility] Comment: Supplemental ranges: <140 mg/dL before meals <180 mg/dL all other times of the day Specimen Anatomical Collection Method Collection Time Receive d Time (Source) Location / / Volume Laterality Blood specimen 08/12/2017 7:40 PM 018 7:40 (specimen) EST PM EST Yonathan Smith MD POINT OF CARE TEST ORDERABLE S Performing Organization Address City/State/ZIP Code Phon e Number [address] POCT Glucose (08/12/2017 4:24 PM EST) athologist Signature POC Glucose 161 65 - 199 [facility] mg/dL [facility] Comment: Supplemental ranges: <140 mg/dL before meals <180 mg/dL all other times of the day Specimen Anatomical Collection Method Collection Time Receive d Time (Source) Location / / Volume Laterality Blood specimen 08/12/2017 4:24 PM 018 4:24 (specimen) EST PM EST Yonathan Smith MD POINT OF CARE TEST ORDERABLE S Performing Organization Address City/State/[place] [address] POCT Glucose (08/12/2017 12:00 PM EST) athologist Signature POC Glucose 167 65 - 199 BARBAR[facility] ZHAORYAN mg/dL [facility] Comment: Supplemental ranges: <140 mg/dL before meals <180 mg/dL all other times of the day Specimen Anatomical Collection Method Collection Time Receive d Time (Source) Location / / Volume Laterality Blood specimen 08/12/2017 12:00 8 (specimen) PM EST 12:00 PM EST Yonathan Smith MD POINT OF CARE TEST ORDERABLE S Performing Organization Address City/State/[place] [address] POCT Glucose (08/12/2017 7:25 AM EST) P athologist Signature POC Glucose 152 65 - 199 [facility] mg/dL [facility] Comment: Supplemental ranges: <140 mg/dL before meals <180 mg/dL all other times of the day Specimen Anatomical Collection Method Collection Time Receive d Time (Source) Location / / Volume Laterality Blood specimen 08/12/2017 7:25 AM 018 7:25 (specimen) EST AM EST Yonathan Smith MD POINT OF CARE TEST ORDERABLE S Performing Organization Address City/State/ZIP Code Phon e Number [place] [id number]ORY [address] (ABNORMAL) Differential, Automated (08/12/2017 6:29 AM EST) Patholo gist Method Time Signature Neutrophils % 78.7 % [facility] Neutr Abs (ANC) 7.94 (H) 1.70 - [facility] 6.10 [facility] x10(3)/[facility] LABORATORY Lymphocytes % 8.8 % [facility] Lymphocytes Abs 0.9 0.9 - 3.2 [facility] x10(3)/[facility] LABORATORY Monocytes % 7.8 % [facility] Monocyte Abs 0.8 0.3 - 0.9 [facility] x10(3)/[facility] LABORATORY Eosinophils % 3.9 % [facility] Eosinophils Abs 0.4 0.0 - 0.4 [facility] x10(3)/[facility] LABORATORY Basophils % 0.3 % [facility] Basophils Abs 0.0 0.0 - 0.1 [facility] x10(3)/[facility] LABORATORY Immature [...] Abs 0.05 (H) 0.00 - 0.04 x10(3)/[facility] LABORATORY Specimen Anatomical Collection Method Collection Time Receive d Time (Source) Location / / Volume Laterality Blood specimen 08/12/2017 6:29 AM 018 6:38 (specimen) EST AM EST Resulting Agency Comment Spec In Lab Yonathan Smith MD HEMATOLOGY ORDERABLES Performing Organization Address City/State/[place] [address] (ABNORMAL) Hemogram (08/12/2017 6:29 AM EST) Analysis Performed At Patho logist Time Signature WBC 10.1 (H) 4.0 - 9.5 [facility] x10(3)/[facility] LABORATORY RBC 3.02 (L) 4.58 - [facility] 5.54 [facility] x10(6)/[facility] LABORATORY Hemoglobin 8.7 (L) 13.7 - [facility] 16.5 gm/dL [facility] Hematocrit 28.1 (L) 40.5 - [facility] 48.5 % [facility] MCV 93.0 82.9 - [facility] 93.1 [facility] LABORATORY MCH 28.8 27.5 - [facility] 32.1 pg [facility] MCHC 31.0 (L) 32.0 - [facility] 35.7 gm/dL [facility] Platelets 223 145 - 357 [facility] x10(3)/[facility] LABORATORY RDWSD 56.1 (H) 36.0 - [facility] 45.0 [facility] LABORATORY RDWCV 16.4 (H) 11.4 - [facility] 13.8 % [facility] MPV 9.0 7.6 - 12.9 [facility] LABORATORY nRBC % Auto 0.0 % [facility] nRBC Abs Auto 0.000 0.000 - BARBAR[facility] RYAN 0.000 [facility] x10(3)/[facility] LABORATORY Specimen Anatomical Collection Method Collection Time Receive d Time (Source) Location / / Volume Laterality Blood specimen 08/12/2017 6:29 AM 018 6:38 (specimen) EST AM EST Resulting Agency Comment Spec In Lab Yonathan Smith MD HEMATOLOGY ORDERABLES Performing Organization Address City/[facility]/[place] [address] (ABNORMAL) Prothrombin Time (08/12/2017 [...] Address City/State/[place] [address] (ABNORMAL) Basic Metabolic Panel (non-fasting) (08/12/2017 6:29 AM EST) athologist Signature Glucose Lvl 151 65 - 199 [facility] mg/dL [facility] Comment: Diabetes: >=200 [...] [facility] Estimated GFR >60 >=60 [facility] Comment: The reported eGFR should be multiplied b y 1.2 for patients. The MDRD is not an appropriate measure o f renal function for patients with body mass extremes or in patients with acute kidney failure. http://Scout/DHnkdep http://Scout/DHMCnkf Specimen Anatomical Collection Method Collection Time Receive d Time (Source) Location / / Volume Laterality Blood specimen 08/12/2017 6:29 AM 018 6:38 (specimen) EST AM EST Resulting Agency Comment Spec In Lab Yonathan Smith MD CHEMISTRY ORDERABLES Performing Organization Address City/[facility]/[place] [address] POCT Glucose (08/12/2017 4:08 AM EST) athologist Signature POC Glucose 181 65 - 199 [facility] mg/dL [facility] Comment: Supplemental ranges: <140 mg/dL before meals <180 mg/dL all other times of the day Specimen Anatomical Collection Method Collection Time Receive d Time (Source) Location / / Volume Laterality Blood specimen 08/12/2017 4:08 AM 018 4:08 (specimen) EST AM EST Yonathan Smith MD POINT OF CARE TEST ORDERABLE S Performing Organization Address City/[facility]/[place] [address] (ABNORMAL) POCT Glucose (08/12/2017 12:17 AM EST) athologist Signature POC Glucose 221 (H) 65 - 199 [facility] mg/dL [facility] Comment: Supplemental ranges: <140 mg/dL before meals <180 mg/dL all other times of the day Specimen Anatomical Collection Method Collection Time Receive d Time (Source) Location / / Volume Laterality Blood specimen 08/12/2017 12:17 8 (specimen) AM EST 12:17 AM EST Yonathan Smith MD POINT OF CARE TEST ORDERABLE S Performing Organization Address City/[facility]/[place] [address] (ABNORMAL) POCT Glucose (08/11/2017 8:52 PM EST) athologist Signature POC Glucose 221 (H) 65 - 199 [facility] RYAN mg/dL [facility] Comment: Supplemental ranges: <140 mg/dL before meals <180 mg/dL all other times of the day Specimen Anatomical Collection Method Collection Time Receive d Time (Source) Location / / Volume Laterality Blood specimen 08/11/2017 8:52 PM 018 8:52 (specimen) EST PM EST Yonathan Smith MD POINT OF CARE TEST ORDERABLE S Performing Organization Address City/[facility]/[place] [address] POCT Glucose (08/11/2017 5:59 PM EST) athologist Signature POC Glucose 169 65 - 199 [facility] RYAN mg/dL [facility] Comment: Supplemental ranges: <140 mg/dL before meals <180 mg/dL all other times of the day Specimen Anatomical Collection Method Collection Time Receive d Time (Source) Location / / Volume Laterality Blood specimen 08/11/2017 5:59 PM 018 5:59 (specimen) EST PM EST Yonathan Smith MD POINT OF CARE TEST ORDERABLE S Performing Organization Address City/State/[place] [address] (ABNORMAL) POCT Glucose (08/11/2017 4:08 PM EST) athologist Signature POC Glucose 240 (H) 65 - 199 [facility] RYAN mg/dL [facility] Comment: Supplemental ranges: <140 mg/dL before meals <180 mg/dL all other times of the day Specimen Anatomical Collection Method Collection Time Receive d Time (Source) Location / / Volume Laterality Blood specimen 08/11/2017 4:08 PM 018 4:08 (specimen) EST PM EST Yonathan Smith MD POINT OF CARE TEST ORDERABLE S Performing Organization Address City/[facility]/ZIP Code Phon e Number [address] POCT Glucose (08/11/2017 12:04 PM EST) athologist Signature POC Glucose 182 65 - 199 [facility] Comment: Supplemental ranges: <140 mg/dL before meals <180 mg/dL all other times of the day Specimen Anatomical Collection Method Collection Time Receive d Time (Source) Location / / Volume Laterality Blood specimen 08/11/2017 12:04 8 (specimen) PM EST 12:04 PM EST Yonathan Smith MD POINT OF CARE TEST ORDERABLE S Performing Organization Address City/[facility]/ZIP Code Phon e Number [address] POCT Glucose (08/11/2017 7:31 AM EST) athologist Signature POC Glucose 156 65 - 199 [facility]dL [facility] Comment: Supplemental ranges: <140 mg/dL before meals <180 mg/dL all other times of the day Specimen Anatomical Collection Method Collection Time Receive d Time (Source) Location / / Volume Laterality Blood specimen 08/11/2017 7:31 AM 018 7:31 (specimen) EST AM EST Yonathan Smith MD POINT OF CARE TEST ORDERABLE S Performing Organization Address City/[facility]/ZIP Code Phon e Number [address] (ABNORMAL) Differential, Automated (08/11/2017 6:16 AM EST) [facility] Time Signature Neutrophils % 83.7 % [facility]ORY Neutr Abs (ANC) 10.76 (H) 1.70 - [facility] 6.10 [facility] x10(3)/[facility] LABORATORY Lymphocytes % 6.0 % [facility]ATORY Lymphocytes Abs 0.8 (L) 0.9 - 3.2 [facility] x10(3)/[facility] LABORATORY Monocytes % 7.5 % [facility]ATORY Monocyte Abs 1.0 (H) 0.3 - 0.9 [facility] x10(3)/[facility] LABORATORY Eosinophils % 2.0 % [facility]ORY Eosinophils Abs 0.3 0.0 - 0.4 [facility] x10(3)/[facility] LABORATORY Basophils % 0.3 % [facility] Basophils Abs 0.0 0.0 - 0.1 [facility] x10(3)/[facility] LABORATORY Immature [...] Abs 0.06 (H) 0.00 - 0.04 x10(3)/[facility] LABORATORY Specimen Anatomical Collection Method Collection Time Receive d Time (Source) Location / / Volume Laterality Blood specimen 08/11/2017 6:16 AM 018 6:24 (specimen) EST AM EST Resulting Agency Comment Spec In Lab Yonathan Smith MD HEMATOLOGY ORDERABLES Performing Organization Address City/State/[place] [address] (ABNORMAL) Hemogram (08/11/2017 6:16 AM EST) Analysis Performed At Patho logist Time Signature WBC 12.9 (H) 4.0 - 9.5 [facility] x10(3)/[facility] LABORATORY RBC 3.28 (L) 4.58 - [facility] 5.54 [facility] x10(6)/[facility] LABORATORY Hemoglobin 9.5 (L) 13.7 - [facility] RYAN 16.5 gm/dL [facility] Hematocrit 29.8 (L) 40.5 - [facility] DAVIS 48.5 % [facility] MCV 90.9 82.9 - [facility] 93.1 [facility] LABORATORY MCH 29.0 27.5 - [facility]BAR[facility] OLIVASCK 32.1 pg [facility] MCHC 31.9 (L) 32.0 - [facility] DAVIS 35.7 gm/dL [facility] Platelets 236 145 - 357 [facility] x10(3)/[facility] LABORATORY RDWSD 53.5 (H) 36.0 - [facility] DAVIS 45.0 [facility] LABORATORY RDWCV 16.3 (H) 11.4 - [facility] 13.8 % [facility] MPV 8.8 7.6 - 12.9 [facility] LABORATORY nRBC % Auto 0.0 % [facility] nRBC Abs Auto 0.000 0.000 - [facility] 0.000 [facility] x10(3)/[facility] LABORATORY Specimen Anatomical Collection Method Collection Time Receive d Time (Source) Location / / Volume Laterality Blood specimen 08/11/2017 6:16 AM 018 6:24 (specimen) EST AM EST Resulting Agency Comment Spec In Lab Yonathan Smith MD HEMATOLOGY ORDERABLES Performing Organization Address City/State/[place] [address] (ABNORMAL) Prothrombin Time (08/11/2017 [...] Organization Address City/State/[place] [address] Basic Metabolic Panel (non-fasting) (08/11/2017 6:16 AM EST) P athologist Signature Glucose Lvl 139 65 - 199 [facility] mg/dL [facility] Comment: Diabetes: >=200 [...] [facility] Estimated GFR >60 >=60 [facility] Comment: The reported eGFR should be multiplied b y 1.2 for patients. The MDRD is not an appropriate measure o f renal function for patients with body mass extremes or in patients with acute kidney failure. http://M[employer]/DHnkdep http://Scout/DHMCnkf Specimen Anatomical Collection Method Collection Time Receive d Time (Source) Location / / Volume Laterality Blood specimen 08/11/2017 6:16 AM 018 6:24 (specimen) EST AM EST Resulting Agency Comment Spec In Lab Yonathan Smith MD CHEMISTRY ORDERABLES Performing Organization Address City/State/ZIP Code Phon e Number [address] POCT Glucose (08/11/2017 4:07 AM EST) athologist Signature POC Glucose 162 65 - 199 [facility] RYAN mg/dL [facility] Comment: Supplemental ranges: <140 mg/dL before meals <180 mg/dL all other times of the day Specimen Anatomical Collection Method Collection Time Receive d Time (Source) Location / / Volume Laterality Blood specimen 08/11/2017 4:07 AM 018 4:07 (specimen) EST AM EST Yonathan Smith MD POINT OF CARE TEST ORDERABLE S Performing Organization Address City/[facility]/ZIP Code Phon e Number [address] POCT Glucose (08/10/2017 11:59 PM EST) athologist Signature POC Glucose 166 65 - 199 [facility] RYAN mg/dL [facility] Comment: Supplemental ranges: <140 mg/dL before meals <180 mg/dL all other times of the day Specimen Anatomical Collection Method Collection Time Receive d Time (Source) Location / / Volume Laterality Blood specimen 08/10/2017 11:59 8 (specimen) PM EST 11:59 PM EST Yonathan mSith MD POINT OF CARE TEST ORDERABLE S Performing Organization Address City/State/ZIP Code Phon e Number [address] POCT Glucose (08/10/2017 8:12 PM EST) athologist Signature POC Glucose 156 65 - 199 [facility] RYAN mg/dL [facility] Comment: Supplemental ranges: <140 mg/dL before meals <180 mg/dL all other times of the day Specimen Anatomical Collection Method Collection Time Receive d Time (Source) Location / / Volume Laterality Blood specimen 08/10/2017 8:12 PM 018 8:12 (specimen) EST PM EST Yonathan Smith MD POINT OF CARE TEST ORDERABLE S Performing Organization Address City/State/ZIP Code Phon e Number [place] [id number]OS[address] LAB[address]ORY Drive (ABNORMAL) POCT Glucose (08/10/2017 4:42 PM EST) P athologist Signature POC Glucose 211 (H) 65 - 199 [facility] mg[facility]dL [facility] Comment: Supplemental ranges: <140 mg/dL before meals <180 mg/dL all other times of the day Specimen Anatomical Collection Method Collection Time Receive d Time (Source) Location / / Volume Laterality Blood specimen 08/10/2017 4:42 PM 018 4:42 (specimen) EST PM EST Yonathan Smith MD POINT OF CARE TEST ORDERABLE S Performing Organization Address City/State/ZIP Code Phon e Number [address] (ABNORMAL) Differential, Automated (08/10/2017 2:30 PM EST) Patholo gist Method Time Signature Neutrophils % 87.6 % [facility]ORY Neutr Abs (ANC) 9.90 (H) 1.70 - [facility] 6.10 [facility] x10(3)/[facility] L LABORATORY Lymphocytes % 4.3 % [facility]ORATORY Lymphocytes Abs 0.5 (L) 0.9 - 3.2 [facility] x10(3)/[facility] LABORATORY Monocytes % 6.0 % [facility] Monocyte Abs 0.7 0.3 - 0.9 [facility] x10(3)/[facility] LABORATORY Eosinophils % 1.1 % [facility] Eosinophils Abs 0.1 0.0 - 0.4 [facility] x10(3)/[facility] LABORATORY Basophils % 0.4 % [facility]ORY Basophils Abs 0.0 0.0 - 0.1 [facility] x10(3)/[facility] LABORATORY Immature [...] Abs 0.07 (H) 0.00 - 0.04 x10(3)/[facility] LABORATORY Specimen Anatomical Collection Method Collection Time Receive d Time (Source) Location / / Volume Laterality Blood specimen 08/10/2017 2:30 PM 018 2:48 (specimen) EST PM EST Resulting Agency Comment Spec In Lab Yonathan Smith MD HEMATOLOGY ORDERABLES Performing Organization Address City/State/Z[place] [address] (ABNORMAL) Hemogram (08/10/2017 2:30 PM EST) Analysis Performed At Patho logist Time Signature WBC 11.3 (H) 4.0 - 9.5 [facility] x10(3)/[facility] LABORATORY RBC 3.13 (L) 4.58 - [facility] 5.54 [facility] x10(6)/[facility] LABORATORY Hemoglobin 8.9 (L) 13.7 - [facility] 16.5 gm/dL [facility] Hematocrit 28.4 (L) 40.5 - [facility] 48.5 % [facility] MCV 90.7 82.9 - [facility] 93.1 [facility] LABORATORY MCH 28.4 27.5 - [facility] 32.1 pg [facility] MCHC 31.3 (L) 32.0 - [facility] 35.7 gm/dL [facility] Platelets 213 145 - 357 [facility] x10(3)/[facility] LABORATORY RDWSD 53.7 (H) 36.0 - [facility] 45.0 [facility] LABORATORY RDWCV 16.4 (H) 11.4 - [facility] 13.8 % [facility] MPV 8.9 7.6 - 12.9 [facility] LABORATORY nRBC % Auto 0.0 % [facility]ORY nRBC Abs Auto 0.000 0.000 - [facility] Anchor™ 0.000 [facility] x10(3)/[facility] LABORATORY Specimen Anatomical Collection Method Collection Time Receive d Time (Source) Location / / Volume Laterality Blood specimen 08/10/2017 2:30 PM 018 2:48 (specimen) EST PM EST Resulting Agency Comment Spec In Lab Yonathan Smith MD HEMATOLOGY ORDERABLES Performing Organization Address City/[facility]/ZIP Code Phon e Number [address] (ABNORMAL) POCT Glucose (08/10/2017 1:50 PM EST) athologist Signature POC Glucose 243 (H) 65 - 199 [facility] mg/dL [facility] Comment: Supplemental ranges: <140 mg/dL before meals <180 mg/dL all other times of the day Specimen Anatomical Collection Method Collection Time Receive d Time (Source) Location / / Volume Laterality Blood specimen 08/10/2017 1:50 PM 018 1:50 (specimen) EST PM EST Yonathan Smith MD POINT OF CARE TEST ORDERABLE S Performing Organization Address City/[facility]/ZIP Code Phon e Number [address] POCT Glucose (08/10/2017 11:21 AM EST) athologist Signature POC Glucose 156 65 - 199 [facility] mg/dL [facility] Comment: Supplemental ranges: <140 mg/dL before meals <180 mg/dL all other times of the day Specimen Anatomical Collection Method Collection Time Receive d Time (Source) Location / / Volume Laterality Blood specimen 08/10/2017 11:21 8 (specimen) AM EST 11:21 AM EST Yonathan Smith MD POINT OF CARE TEST ORDERABLE S Performing Organization Address City/[facility]/ZIP Code Phon e Number [address] (ABNORMAL) Differential, Automated (08/10/2017 10:28 AM EST) [facility] Time Signature Neutrophils % 85.3 % [facility] LABORATORY Neutr Abs (ANC) 9.43 (H) 1.70 - [facility] 6.10 [facility] x10(3)/[facility] L LABORATORY Lymphocytes % 5.5 % [facility] LABORATORY Lymphocytes Abs 0.6 (L) 0.9 - 3.2 [facility] x10(3)/[facility] LABORATORY Monocytes % 5.9 % [facility] LABORATORY Monocyte Abs 0.6 0.3 - 0.9 [facility] x10(3)/[facility] LABORATORY Eosinophils % 2.1 % [facility] LABORATORY Eosinophils Abs 0.2 0.0 - 0.4 [facility] x10(3)/[facility] LABORATORY Basophils % 0.4 % [facility]ORATORY Basophils Abs 0.0 0.0 - 0.1 [facility] x10(3)/[facility] LABORATORY Immature [...] Abs 0.09 (H) 0.00 - 0.04 x10(3)/[facility] LABORATORY Specimen Anatomical Collection Method Collection Time Receive d Time (Source) Location / / Volume Laterality Blood specimen 08/10/2017 10:28 8 (specimen) AM EST 10:35 AM EST Resulting Agency Comment Spec In Lab Yonathan Smith MD HEMATOLOGY ORDERABLES Performing Organization Address City/State/[place] [address] (ABNORMAL) Hemogram (08/10/2017 10:28 AM EST) Analysis Performed At Patho logist Time Signature WBC 11.0 (H) 4.0 - 9.5 [facility] x10(3)/[facility] LABORATORY RBC 3.02 (L) 4.58 - [facility] 5.54 [facility] x10(6)/[facility] LABORATORY Hemoglobin 8.8 (L) 13.7 - [facility] 16.5 gm/dL [facility] Hematocrit 28.1 (L) 40.5 - [facility] 48.5 % [facility] MCV 93.0 82.9 - [facility] DAVIS 93.1 [facility] LABORATORY MCH 29.1 27.5 - [facility] OLIVASCK 32.1 pg [facility] MCHC 31.3 (L) 32.0 - [facility] DAVIS 35.7 gm/dL [facility] Platelets 207 145 - 357 [facility] ZHAORYAN x10(3)/[facility] LABORATORY RDWSD 55.3 (H) 36.0 - [facility] DAVIS 45.0 [facility] LABORATORY RDWCV 16.4 (H) 11.4 - [facility] RYAN 13.8 % [facility] MPV 9.0 7.6 - 12.9 [facility] LABORATORY nRBC % Auto 0.0 % [facility] nRBC Abs Auto 0.000 0.000 - BARBAR[facility] DAVIS 0.000 [facility] x10(3)/[facility] LABORATORY Specimen Anatomical Collection Method Collection Time Receive d Time (Source) Location / / Volume Laterality Blood specimen 08/10/2017 10:28 8 (specimen) AM EST 10:35 AM EST Resulting Agency Comment Spec In Lab Yonathan Smith MD HEMATOLOGY ORDERABLES Performing Organization Address City/State/[place] [address] VS Angiogram/intervention (vascular) (08/10/2017 [...] 2.5x80 5. Completion RLE angiogram 6. L RUSTIC FENCE BUILDER angiogram 7. 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 L [employer] BU[employer]DER access in the distal L RUSTIC FENCE BUILDER. - Closure device: Mynx Technical Procedure: ?The [...] for a 45cm 5F Destination. V18 and Claverack a nd QuickCross catheters were used to [...] bifurcation. Access appeared in the distal R RUSTIC FENCE BUILDER. Closure and sheath removal was performed with [...] 2.5x80 5. Completion RLE angiogram 6. L [employer] BUILDER angiogram 7. 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 L [employer]IC FENCE BUILDER access in the distal L RUSTIC FENCE BUILDER. - Closure device: Mynx Technical Procedure: The [...] for a 45cm 5F Destination. V18 and Claverack a nd QuickCross catheters were used to [...] bifurcation. Access appeared in the distal R [employer]IC FENCE BUILDER. Closure and sheath removal was performed with [...] (ABNORMAL) Differential, Automated (08/10/2017 5:50 AM EST) [facility] Method Time Signature Neutrophils % 80.1 % [facility] LABORATORY Neutr Abs (ANC) 9.01 (H) 1.70 - [facility] 6.10 [facility] x10(3)/[facility] LABORATORY Lymphocytes % 8.8 % [facility] LABOR[facility]ORY Lymphocytes Abs 1.0 0.9 - 3.2 [facility] x10(3)/[facility] LABORATORY Monocytes % 8.3 % [facility] LABORATORY Monocyte Abs 0.9 0.3 - 0.9 [facility] x10(3)/[facility] LABORATORY Eosinophils % 2.0 % [facility] LABORATORY Eosinophils Abs 0.2 0.0 - 0.4 [facility] x10(3)/[facility] LABORATORY Basophils % 0.4 % [facility] LABORATORY Basophils Abs 0.0 0.0 - 0.1 [facility] x10(3)/[facility] LABORATORY Immature [...] Abs 0.05 (H) 0.00 - 0.04 x10(3)/[facility] LABORATORY Specimen Anatomical Collection Method Collection Time Receive d Time (Source) Location / / Volume Laterality Blood specimen 08/10/2017 5:50 AM 018 5:59 (specimen) EST AM EST Resulting Agency Comment Spec In Lab Yonathan Smith MD HEMATOLOGY ORDERABLES Performing Organization Address City/State/[place] [address] (ABNORMAL) Hemogram (08/10/2017 5:50 AM EST) Analysis Performed At Patho logist Time Signature WBC 11.3 (H) 4.0 - 9.5 [facility] x10(3)/[facility] LABORATORY RBC 3.15 (L) 4.58 - [place] 5.54 [facility] x10(6)/[facility] LABORATORY Hemoglobin 8.9 (L) 13.7 - [facility] 16.5 gm/dL [facility] LABORATORY Hematocrit 29.0 (L) 40.5 - [facility] RYAN 48.5 % [facility] LABORATORY MCV 92.1 82.9 - [facility] 93.1 [facility] LABORATORY MCH 28.3 27.5 - [facility] R[facility]AN 32.1 pg [facility] LABORATORY MCHC 30.7 (L) 32.0 - [facility] R[facility] 35.7 gm/dL [facility] LABORATORY Platelets 231 145 - 357 [facility] x10(3[facility] RDWSD 53.9 (H) 36.0 - [facility] RYAN 45.0 [facility] LABORATORY RDWCV 16.2 (H) 11.4 - [facility] RYAN 13.8 % [facility] LABORATORY MPV 8.7 7.6 - 12.9 [facility] LABORATORY nRBC % Auto 0.0 % [facility] LABORATORY nRBC Abs Auto 0.000 0.000 - [facility] 0.000 [facility] x10(3)/[facility] LABORATORY Specimen Anatomical Collection Method Collection Time Receive d Time (Source) Location / / Volume Laterality Blood specimen 08/10/2017 5:50 AM 018 5:59 (specimen) EST AM EST Resulting Agency Comment Spec In Lab Yonathan Smith MD HEMATOLOGY ORDERABLES Performing Organization Address City/State/[place] [address] (ABNORMAL) Basic Metabolic Panel (non-fasting) (08/10/2017 5:50 AM EST) P athologist Signature Glucose Lvl 135 65 - 199 [facility] mg/dL [facility] LABORATORY Comment: Diabetes: >=200 [...] [facility] LABORATORY Estimated GFR >60 >=60 [facility] LABORATORY Comment: The reported eGFR should be multiplied b y 1.2 for patients. The MDRD is not an appropriate measure o f renal function for patients with body mass extremes or in patients with acute kidney failure. http://[employer]/DHnkdep http://M[employer]/DHMCnkf Specimen Anatomical Collection Method Collection Time Receive d Time (Source) Location / / Volume Laterality Blood specimen 08/10/2017 5:50 AM 018 5:59 (specimen) EST AM EST Resulting Agency Comment Spec In Lab Yonathan Smith MD CHEMISTRY ORDERABLES Performing Organization Address [facility] [place] [address] (ABNORMAL) Prothrombin Time (08/10/2017 [...] Smith MD HEMATOLOGY ORDERABLES Performing Organization Address City/[facility] [place] [address] (ABNORMAL) POCT Glucose (08/10/2017 4:01 AM EST) athologist Signature POC Glucose 206 (H) 65 - 199 [facility] mg/dL [facility] LABORATORY Comment: Supplemental ranges: <140 mg/dL before meals <180 mg/dL all other times of the day Specimen Anatomical Collection Method Collection Time Receive d Time (Source) Location / / Volume Laterality Blood specimen 08/10/2017 4:01 AM 018 4:01 (specimen) EST AM EST Yonathan Smith MD POINT OF CARE TEST ORDERABLE S Performing Organization Address City/State/ZIP Code Phon e Number [address] POCT Glucose (08/10/2017 2:01 AM EST) athologist Signature POC Glucose 188 65 - 199 [facility] mg/dL [facility] LABOR[facility]ORY Comment: Supplemental ranges: <140 mg/dL before meals <180 mg/dL all other times of the day Specimen Anatomical Collection Method Collection Time Receive d Time (Source) Location / / Volume Laterality Blood specimen 08/10/2017 2:01 AM 018 2:01 (specimen) EST AM EST Yonathan Smith MD POINT OF CARE TEST ORDERABLE S Performing Organization Address City/[facility]/[place] [address] (ABNORMAL) POCT Glucose (08/09/2017 11:42 PM EST) athologist Signature POC Glucose 283 (H) 65 - 199 [facility] mg/dL [facility]OR[facility] Comment: Supplemental ranges: <140 mg/dL before meals <180 mg/dL all other times of the day Specimen Anatomical Collection Method Collection Time Receive d Time (Source) Location / / Volume Laterality Blood specimen 08/09/2017 11:42 8 (specimen) PM EST 11:42 PM EST Yonathan Smith MD POINT OF CARE TEST ORDERABLE S Performing Organization Address City/State/[place] [address] POCT Glucose (08/09/2017 8:55 PM EST) athologist Signature POC Glucose 182 65 - 199 [facility] mg/dL [facility] LABOR[facility] Comment: Supplemental ranges: <140 mg/dL before meals <180 mg/dL all other times of the day Specimen Anatomical Collection Method Collection Time Receive d Time (Source) Location / / Volume Laterality Blood specimen 08/09/2017 8:55 PM 018 8:55 (specimen) EST PM EST Yonathan Smith MD POINT OF CARE TEST ORDERABLE S Performing Organization Address City/[facility]/[place] [address] (ABNORMAL) APTT (08/09/2017 6:42 [...] Smith MD HEMATOLOGY ORDERABLES Performing Organization Address City/[facility]/[place] [address] POCT Glucose (08/09/2017 4:41 PM EST) athologist Signature POC Glucose 195 65 - 199 [facility] mg/dL [facility] Comment: Supplemental ranges: <140 mg/dL before meals <180 mg/dL all other times of the day Specimen Anatomical Collection Method Collection Time Receive d Time (Source) Location / / Volume Laterality Blood specimen 08/09/2017 4:41 PM 018 4:41 (specimen) EST PM EST Yonathan Smith MD POINT OF CARE TEST ORDERABLE S Performing Organization Address City/[facility]/[place] [address] POCT Glucose (08/09/2017 12:29 PM EST) athologist Signature POC Glucose 140 65 - 199 [facility] mg/dL [facility] Comment: Supplemental ranges: <140 mg/dL before meals <180 mg/dL all other times of the day Specimen Anatomical Collection Method Collection Time Receive d Time (Source) Location / / Volume Laterality Blood specimen 08/09/2017 12:29 8 (specimen) PM EST 12:29 PM EST Yonathan Smith MD POINT OF CARE TEST ORDERABLE S Performing Organization Address [facility]/ZIP Code Phon e Number [address] POCT Glucose (08/09/2017 9:59 AM EST) P athologist Signature POC Glucose 135 65 - 199 [facility] mg/dL [facility]OR[facility] Comment: Supplemental ranges: <140 mg/dL before meals <180 mg/dL all other times of the day Specimen Anatomical Collection Method Collection Time Receive d Time (Source) Location / / Volume Laterality Blood specimen 08/09/2017 9:59 AM 018 9:59 (specimen) EST AM EST Yonathan Smith MD POINT OF CARE TEST ORDERABLE S Performing Organization Address [facility]/ZIP Code Phon e Number [address] Specimen to Pathology (08/09/2017 [...] City/[facility]/[place] [address] Surgical Pathology Report (08/09/2017 8:40 AM EST) Component Value Ref Test Analysis Performed At Patholo gist Range Method Time Signature Surgical [id number] ? Location: [facility]; [facility]; A [facility] Report The signing pathologist has [...] [facility] Dept. of Pathology, [place], [place] CLINICAL INFORMATION Specimen Submitted: A [...] Organization Address City/State/[place] [address] Anaerobic Culture (08/09/2017 8:30 AM EST) [facility] Say2me Method Time Signature Anaerobic No anaerobic [facility] Culture organisms [facility] LABORATORY Specimen Anatomical Collection Method Collection Time Receive d Time (Source) Location / / Volume Laterality Specimen from STRUCTURE OF RIGHT 08/09/2017 8:30 AM 9:10 abscess FOOT / Unknown EST AM EST (specimen) Comment: SWAB RIGHT GREAT TOE ABSCESS FO R AEROBIC AND ANAEROBIC CULTURES. Resulting Agency Comment Spec In Lab Yonathan Smith MD MICROBIOLOGY - GENERAL ORDER ROBSON Performing Organization Address City/[facility]/[place] [address] (ABNORMAL) Abscess/Wound Aspirate Culture (08/09/2017 8:30 AM EST) [facility] Method Time Signature Abscess/Wound Moderate mixed [facility] Aspirate bacterial [place] Culture morphotypes [facility] normal LABORATORY cutaneous leroy (A) Gram Stain Rare White Blood Cells [place] Few Gram Positive Cocci in pairs [place] () [facility] LABORATORY Organism Gram Positive [place] Cocci in pairs [place] () [facility] LABORATORY Specimen Anatomical Collection Method [...] - GENERAL ORDER ROBSON Performing Organization Address City/[facility]/ZIP Code Phon e Number [place] [id number] POCT Glucose (08/09/2017 4:28 AM EST) P athologist Signature POC Glucose 128 65 - 199 [facility] mg/dL [facility] LABOR[facility]ORY Comment: Supplemental ranges: <140 mg/dL before meals <180 mg/dL all other times of the day Specimen Anatomical Collection Method Collection Time Receive d Time (Source) Location / / Volume Laterality Blood specimen 08/09/2017 4:28 AM 018 4:28 (specimen) EST AM EST Yonathan Smith MD POINT OF CARE TEST ORDERABLE S Performing Organization Address City/State/[place] [address] ABORH Recheck Status (08/09/2017 1:10 AM EST) [facility] Method Time Signature ABORH Type Completed [facility] LABORATORY Specimen Anatomical Collection Method Collection Time Receive d Time (Source) Location / / Volume Laterality Blood specimen 08/09/2017 1:10 AM 018 1:35 (specimen) EST AM EST Resulting Agency Comment Spec In Lab Yonathan Smith MD BLOOD BANK ORDERABLES Performing Organization Address City/[facility]/[place] [address] Antibody screen (08/09/2017 1:10 AM EST) [facility] Method Time Signature Ab Screen Negative [facility] LABORATORY Expires at 08/12/2017 [facility] [id number] on: [facility] LABORATORY Specimen Anatomical Collection Method Collection Time Receive d Time (Source) Location / / Volume Laterality Blood specimen 08/09/2017 1:10 AM 018 1:35 (specimen) EST AM EST Resulting Agency Comment Spec In Lab Yonathan Smith MD BLOOD BANK ORDERABLES Performing Organization Address City/[facility]/[place] [address] ABO/Rh Typing (08/09/2017 1:10 AM EST) P athologist Signature ABORh Type O Pos [facility] LABORATORY Specimen Anatomical Collection Method Collection Time Receive d Time (Source) Location / / Volume Laterality Blood specimen 08/09/2017 1:10 AM 018 1:35 (specimen) EST AM EST Resulting Agency Comment Spec In Lab Yonathan Smith MD BLOOD BANK ORDERABLES Performing Organization Address City/[facility]/[place] [address] (ABNORMAL) APTT (08/09/2017 1:10 [...] Organization Address City/State/[place] [address] (ABNORMAL) Differential, Automated (08/09/2017 1:10 AM EST) [facility] gist Method Time Signature Neutrophils % 76.2 % [facility] LABORATORY Neutr Abs (ANC) 8.59 (H) 1.70 - [facility] 6.10 [facility] x10(3)/[facility] LABORATORY Lymphocytes % 11.0 % [facility] LABORATORY Lymphocytes Abs 1.2 0.9 - 3.2 [facility] x10(3)/[facility] LABORATORY Monocytes % 8.4 % [facility] LABORATORY Monocyte Abs 1.0 (H) 0.3 - 0.9 [facility] x10(3)/[facility] LABORATORY Eosinophils % 3.5 % [facility] LABORATORY Eosinophils Abs 0.4 0.0 - 0.4 [facility] x10(3)/[facility] LABORATORY Basophils % 0.5 % [facility] LABORATORY Basophils Abs 0.1 0.0 - 0.1 [facility] x10(3)/[facility] LABORATORY Immature [...] Abs 0.05 (H) 0.00 - 0.04 x10(3)/[facility] LABORATORY Specimen Anatomical Collection Method Collection Time Receive d Time (Source) Location / / Volume Laterality Blood specimen 08/09/2017 1:10 AM 018 1:19 (specimen) EST AM EST Resulting Agency Comment Spec In Lab Yonathan Smtih MD HEMATOLOGY ORDERABLES Performing Organization Address City/State/Z[place] [address] (ABNORMAL) Hemogram (08/09/2017 1:10 AM EST) Analysis Performed At Patho logist Time Signature WBC 11.3 (H) 4.0 - 9.5 [facility] x10(3)/[facility] LABORATORY RBC 3.47 (L) 4.58 - [facility] 5.54 [facility] x10(6)/[facility] LABORATORY Hemoglobin 10.0 (L) 13.7 - [facility] 16.5 gm/dL [facility] LABORATORY Hematocrit 31.9 (L) 40.5 - [facility] 48.5 % [facility] LABORATORY MCV 91.9 82.9 - [facility] 93.1 [facility] LABORATORY MCH 28.8 27.5 - [facility] RYAN 32.1 pg [facility] LABORATORY MCHC 31.3 (L) 32.0 - [facility] 35.7 gm/dL [facility] LABORATORY Platelets 234 145 - 357 [facility] x10(3)/[facility] LABORATORY RDWSD 54.0 (H) 36.0 - [facility] RYAN 45.0 [facility] LABORATORY RDWCV 16.2 (H) 11.4 - [facility] 13.8 % [facility] LABORATORY MPV 8.7 7.6 - 12.9 [facility] LABORATORY nRBC % Auto 0.0 % [facility] LABORATORY nRBC Abs Auto 0.000 0.000 - [facility] 0.000 [facility] x10(3)/[facility] LABORATORY Specimen Anatomical Collection Method Collection Time Receive d Time (Source) Location / / Volume Laterality Blood specimen 08/09/2017 1:10 AM 018 1:19 (specimen) EST AM EST Resulting Agency Comment Spec In Lab Yonathan Smith MD HEMATOLOGY ORDERABLES Performing Organization Address [facility] [place] [address] (ABNORMAL) Prothrombin Time (08/09/2017 [...] HEMATOLOGY ORDERABLES Performing Organization Address [facility] [place] [place] [address] (ABNORMAL) Basic Metabolic Panel (non-fasting) (08/09/2017 1:10 AM EST) athologist Signature Glucose Lvl 108 65 - 199 [facility] mg/dL [facility] LABORATORY Comment: Diabetes: >=200 [...] HOSPITAL LABORATORY Estimated GFR 45 (L) >=60 [facility] LABORATORY Comment: The reported eGFR should be multiplied b y 1.2 for patients. The MDRD is not an appropriate measure o f renal function for patients with body mass extremes or in patients with acute kidney failure. http://[employer]/DHnkdep http://[employer]/DHMCnkf Specimen Anatomical Collection Method Collection Time Receive d Time (Source) Location / / Volume Laterality Blood specimen 08/09/2017 1:10 AM 018 1:19 (specimen) EST AM EST Resulting Agency Comment Spec In Lab Yonathan Smith MD CHEMISTRY ORDERABLES Performing Organization Address City/State/ZIP Code Phon e Number [address] POCT Glucose (08/09/2017 12:05 AM EST) athologist Signature POC Glucose 128 65 - 199 [facility] mg/dL [facility] LABORATORY Comment: Supplemental ranges: <140 mg/dL before meals <180 mg/dL all other times of the day Specimen Anatomical Collection Method Collection Time Receive d Time (Source) Location / / Volume Laterality Blood specimen 08/09/2017 12:05 8 (specimen) AM EST 12:05 AM EST Yonathan Smith MD POINT OF CARE TEST ORDERABLE S Performing Organization Address City/State/[place] [address] (ABNORMAL) POCT Glucose (08/08/2017 7:36 PM EST) athologist Signature POC Glucose 215 (H) 65 - 199 [facility] mg/dL [facility] LABORATORY Comment: Supplemental ranges: <140 mg/dL before meals <180 mg/dL all other times of the day Specimen Anatomical Collection Method Collection Time Receive d Time (Source) Location / / Volume Laterality Blood specimen 08/08/2017 7:36 PM 018 7:36 (specimen) EST PM EST Yonathan Smith MD POINT OF CARE TEST ORDERABLE S Performing Organization Address City/[facility]/[place] [address] (ABNORMAL) POCT Glucose (08/08/2017 6:23 PM EST) athologist Signature POC Glucose 216 (H) 65 - 199 [facility] mg/dL [facility] LABOR[facility]ORY Comment: Supplemental ranges: <140 mg/dL before meals <180 mg/dL all other times of the day Specimen Anatomical Collection Method Collection Time Receive d Time (Source) Location / / Volume Laterality Blood specimen 08/08/2017 6:23 PM 018 6:23 (specimen) EST PM EST Yonathan Smith MD POINT OF CARE TEST ORDERABLE S Performing Organization Address City/[facility]/[place] [address] (ABNORMAL) APTT (08/08/2017 6:00 [...] Smith MD HEMATOLOGY ORDERABLES Performing Organization Address City/[facility]/ZIP Code Phon e Number [facility] [place] [address] POCT Glucose (08/08/2017 4:42 PM EST) athologist Signature POC Glucose 78 65 - 199 [facility] mg/dL [facility] LABOR[facility]ORY Comment: Supplemental ranges: <140 mg/dL before meals <180 mg/dL all other times of the day Specimen Anatomical Collection Method Collection Time Receive d Time (Source) Location / / Volume Laterality Blood specimen 08/08/2017 4:42 PM 018 4:42 (specimen) EST PM EST Yonathan Smith MD POINT OF CARE TEST ORDERABLE S Performing Organization Address City/State/[place] [address] (ABNORMAL) POCT Glucose (08/08/2017 4:01 PM EST) athologist Signature POC Glucose 58 (L) 65 - 199 [facility] mg/dL [facility] LABOR[facility] Comment: Supplemental ranges: <140 mg/dL before meals <180 mg/dL all other times of the day Specimen Anatomical Collection Method Collection Time Receive d Time (Source) Location / / Volume Laterality Blood specimen 08/08/2017 4:01 PM 018 4:01 (specimen) EST PM EST Yonathan Smith MD POINT OF CARE TEST ORDERABLE S Performing Organization Address City/State/[place] [address] POCT Glucose (08/08/2017 11:51 AM EST) athologist Signature POC Glucose 90 65 - 199 [facility] mg/dL [facility] Comment: Supplemental ranges: <140 mg/dL before meals <180 mg/dL all other times of the day Specimen Anatomical Collection Method Collection Time Receive d Time (Source) Location / / Volume Laterality Blood specimen 08/08/2017 11:51 8 (specimen) AM EST 11:51 AM EST Yonathan Smith MD POINT OF CARE TEST ORDERABLE S Performing Organization Address City/State/[place] [address] (ABNORMAL) APTT (08/08/2017 10:27 [...] Smith MD HEMATOLOGY ORDERABLES Performing Organization Address City/[facility]/ZIP Code Phon e Number [address] POCT Glucose (08/08/2017 8:02 AM EST) athologist Signature POC Glucose 178 65 - 199 [facility] mg/dL [facility] LABOR[facility]ORY Comment: Supplemental ranges: <140 mg/dL before meals <180 mg/dL all other times of the day Specimen Anatomical Collection Method Collection Time Receive d Time (Source) Location / / Volume Laterality Blood specimen 08/08/2017 8:02 AM 018 8:02 (specimen) EST AM EST Yonathan Smith MD POINT OF CARE TEST ORDERABLE S Performing Organization Address City/[facility]/[place] [address] (ABNORMAL) APTT (08/08/2017 4:51 AM EST) athologist Signature PTT >160 25 - 35 [facility] (Critical) sec [facility] Comment: Called by: HOWARD, Read [...] Organization Address City/State/[place] [address] (ABNORMAL) Differential, Automated (08/08/2017 4:51 AM EST) [facility] gist Method Time Signature Neutrophils % 77.9 % [facility] Neutr Abs (ANC) 8.17 (H) 1.70 - [facility] 6.10 [facility] x10(3)/[facility] LABORATORY Lymphocytes % 10.3 % [facility] Lymphocytes Abs 1.1 0.9 - 3.2 [facility] x10(3)/[facility] LABORATORY Monocytes % 7.0 % [facility] Monocyte Abs 0.7 0.3 - 0.9 [facility] x10(3)/[facility] LABORATORY Eosinophils % 3.6 % [facility] Eosinophils Abs 0.4 0.0 - 0.4 [facility] x10(3)/[facility] LABORATORY Basophils % 0.5 % [facility] Basophils Abs 0.0 0.0 - 0.1 [facility] x10(3)/[facility] LABORATORY Immature [...] Abs 0.07 (H) 0.00 - 0.04 x10(3)/[facility] LABORATORY Specimen Anatomical Collection Method Collection Time Receive d Time (Source) Location / / Volume Laterality Blood specimen 08/08/2017 4:51 AM 01/14/2 018 5:14 (specimen) EST AM EST Resulting Agency Comment Spec In Lab Yonathan Smith MD HEMATOLOGY ORDERABLES Performing Organization Address City/State/ZIP Code Phon e Number [address] (ABNORMAL) Hemogram (08/08/2017 4:51 AM EST) Analysis Performed At Patho logist Time Signature WBC 10.5 (H) 4.0 - 9.5 [facility] x[facility](3[facility] LABORATORY RBC 3.27 (L) 4.58 - [place] 5.54 [facility] x10(6)/[facility] LABORATORY Hemoglobin 9.3 (L) 13.7 - [facility] 16.5 gm/dL [facility] Hematocrit 30.3 (L) 40.5 - [facility] 48.5 % [facility] MCV 92.7 82.9 - [facility] 93.1 [facility] LABORATORY MCH 28.4 27.5 - [place] [facility] 32.1 pg [facility] MCHC 30.7 (L) 32.0 - [place] 35.7 gm/dL [facility] Platelets 252 145 - 357 [facility] x10(3)/[facility] LABORATORY RDWSD 54.6 (H) 36.0 - [place] 45.0 [facility] LABORATORY RDWCV 16.2 (H) 11.4 - [facility] R[facility] 13.8 % [facility] MPV 9.1 7.6 - 12.9 [facility] LABORATORY nRBC % Auto 0.0 % [facility]ORY nRBC Abs Auto 0.000 0.000 - [place] [facility] 0.000 [facility] x10(3)/[facility] LABORATORY Specimen Anatomical Collection Method Collection Time Receive d Time (Source) Location / / Volume Laterality Blood specimen 08/08/2017 4:51 AM 018 5:14 (specimen) EST AM EST Resulting Agency Comment Spec In Lab Yonathan Smith MD HEMATOLOGY ORDERABLES Performing Organization Address City/State/[place] [address] (ABNORMAL) Prothrombin Time (08/08/2017 [...] Address City/State/[place] [address] (ABNORMAL) Basic Metabolic Panel (non-fasting) (08/08/2017 4:51 AM EST) athologist Signature Glucose Lvl 229 (H) 65 - 199 [facility] mg/dL [facility] Comment: Diabetes: >=200 [...] or in patients with acute kidney failure. [email or web address] [email or web address] Specimen Anatomical Collection Method Collection Time Receive d Time (Source) Location / / Volume Laterality Blood specimen 08/08/2017 4:51 AM 018 5:14 (specimen) EST AM EST Resulting Agency Comment Spec In Lab Yonathan Smith MD CHEMISTRY ORDERABLES Performing Organization Address City/[facility]/ZIP Code Phon e Number [address] POCT Glucose (08/08/2017 4:20 AM EST) athologist Signature POC Glucose 193 65 - 199 [facility] Comment: Supplemental ranges: <140 mg/dL before meals <180 mg/dL all other times of the day Specimen Anatomical Collection Method Collection Time Receive d Time (Source) Location / / Volume Laterality Blood specimen 08/08/2017 4:20 AM 018 4:20 (specimen) EST AM EST Yonathan Smith MD POINT OF CARE TEST ORDERABLE S Performing Organization Address City/[facility]/ZIP Code Phon e Number [address] POCT Glucose (08/07/2017 11:11 PM EST) athologist Signature POC Glucose 124 65 - 199 [facility] mg/dL [facility] Comment: Supplemental ranges: <140 mg/dL before meals <180 mg/dL all other times of the day Specimen Anatomical Collection Method Collection Time Receive d Time (Source) Location / / Volume Laterality Blood specimen 08/07/2017 11:11 8 (specimen) PM EST 11:11 PM EST Yonathan Smith MD POINT OF CARE TEST ORDERABLE S Performing Organization Address City/[facility]/[place] [address] (ABNORMAL) APTT (08/07/2017 10:18 [...] Address City/State/[place] [address] POCT Glucose (08/07/2017 8:10 PM EST) athologist Signature POC Glucose 140 65 - 199 [facility] mg/dL [facility] Comment: Supplemental ranges: <140 mg/dL before meals <180 mg/dL all other times of the day Specimen Anatomical Collection Method Collection Time Receive d Time (Source) Location / / Volume Laterality Blood specimen 08/07/2017 8:10 PM 018 8:10 (specimen) EST PM EST Yonathan Smith MD POINT OF CARE TEST ORDERABLE S Performing Organization Address City/State/[place] [address] POCT Glucose (08/07/2017 5:27 PM EST) athologist Signature POC Glucose 187 65 - 199 [facility] mg/dL [facility] Comment: Supplemental ranges: <140 mg/dL before meals <180 mg/dL all other times of the day Specimen Anatomical Collection Method Collection Time Receive d Time (Source) Location / / Volume Laterality Blood specimen 08/07/2017 5:27 PM 018 5:27 (specimen) EST PM EST Yonathan Smith MD POINT OF CARE TEST ORDERABLE S Performing Organization Address City/[facility]/[place] [address] POCT Glucose (08/07/2017 3:29 PM EST) athologist Signature POC Glucose 86 65 - 199 [facility] mg/dL [facility] Comment: Supplemental ranges: <140 mg/dL before meals <180 mg/dL all other times of the day Specimen Anatomical Collection Method Collection Time Receive d Time (Source) Location / / Volume Laterality Blood specimen 08/07/2017 3:29 PM 018 3:29 (specimen) EST PM EST Yonathan Smith MD POINT OF CARE TEST ORDERABLE S Performing Organization Address [facility] [place] [address] (ABNORMAL) APTT (08/07/2017 2:50 PM EST) athologist [facility] PTT 60 (H) 25 - 35 sec [...] Smith MD HEMATOLOGY ORDERABLES Performing Organization Address City/[facility]/ZIP [facility] [place] [place] [address] (ABNORMAL) POCT Glucose (08/07/2017 2:23 PM EST) athologist Signature POC Glucose 55 (L) 65 - 199 [facility] mg/dL [facility] Comment: Supplemental ranges: <140 mg/dL before meals <180 mg/dL all other times of the day Specimen Anatomical Collection Method Collection Time Receive d Time (Source) Location / / Volume Laterality Blood specimen 08/07/2017 2:23 PM 018 2:23 (specimen) EST PM EST Yonathan Smith MD POINT OF CARE TEST ORDERABLE S Performing Organization Address City/State/ZIP Code Phon e Number [address] POCT Glucose (08/07/2017 12:08 PM EST) P athologist Signature POC Glucose 77 65 - 199 [facility] mg/dL [facility] Comment: Supplemental ranges: <140 mg/dL before meals <180 mg/dL all other times of the day Specimen Anatomical Collection Method Collection Time Receive d Time (Source) Location / / Volume Laterality Blood specimen 08/07/2017 12:08 8 (specimen) PM EST 12:08 PM EST Yonathan Smith MD POINT OF CARE TEST ORDERABLE S Performing Organization Address City/State/[place] [address] (ABNORMAL) Differential, Automated (08/07/2017 7:30 AM EST) Patholo gist Method Time Signature Neutrophils % 73.8 % [facility] Neutr Abs (ANC) 7.17 (H) 1.70 - [facility] 6.10 [facility] x10(3)/[facility] L LABORATORY Lymphocytes % 12.2 % [facility] LABORATORY Lymphocytes Abs 1.2 0.9 - 3.2 [facility] x10(3)/[facility] LABORATORY Monocytes % 9.0 % [facility] LABORATORY Monocyte Abs 0.9 0.3 - 0.9 [facility] x10(3)/[facility] LABORATORY Eosinophils % 3.9 % [facility]ORY Eosinophils Abs 0.4 0.0 - 0.4 [facility] x10(3)/[facility] LABORATORY Basophils % 0.6 % [facility]ORY Basophils Abs 0.1 0.0 - 0.1 [facility] x10(3)/[facility] LABORATORY Immature [...] Abs 0.05 (H) 0.00 - 0.04 x10(3)/[facility] LABORATORY Specimen Anatomical Collection Method Collection Time Receive d Time (Source) Location / / Volume Laterality Blood specimen 08/07/2017 7:30 AM 018 7:45 (specimen) EST AM EST Resulting Agency Comment Spec In Lab Yonathan Smith MD HEMATOLOGY ORDERABLES Performing Organization Address City/State/ZIP Code Phon e Number [place] [id number] Drive (ABNORMAL) Hemogram (08/07/2017 7:30 AM EST) Analysis Performed At Patho logist Time Signature WBC 9.7 (H) 4.0 - 9.5 [facility] x10(3)/[facility] LABORATORY RBC 3.54 (L) 4.58 - [facility] 5.54 [facility] x10(6)/[facility] LABORATORY Hemoglobin 9.9 (L) 13.7 - [facility] 16.5 gm/dL [facility] Hematocrit 32.3 (L) 40.5 - [facility] 48.5 % [facility] MCV 91.2 82.9 - [facility] 93.1 [facility] LABORATORY MCH 28.0 27.5 - [facility] 32.1 pg [facility] MCHC 30.7 (L) 32.0 - [facility] 35.7 gm/dL [facility] Platelets 312 145 - 357 [facility] x10(3)/[facility] LABORATORY RDWSD 53.2 (H) 36.0 - [facility] 45.0 [facility] RDWCV 16.0 (H) 11.4 - [facility] 13.8 % [facility] MPV 8.9 7.6 - 12.9 [facility] LABORATORY nRBC % Auto 0.0 % [facility]ORATORY nRBC Abs Auto 0.000 0.000 - [facility] 0.000 [facility] x10(3)/[facility] LABORATORY Specimen Anatomical Collection Method Collection Time Receive d Time (Source) Location / / Volume Laterality Blood specimen 08/07/2017 7:30 AM 018 7:45 (specimen) EST AM EST Resulting Agency Comment Spec In Lab Yonathan Smith MD HEMATOLOGY ORDERABLES Performing Organization Address City/State/ZIP [place] [address] (ABNORMAL) Basic Metabolic Panel (non-fasting) (08/07/2017 7:30 AM EST) athologist Signature Glucose Lvl 80 65 - 199 [facility] mg/dL [facility] Comment: Diabetes: >=200 [...] or in patients with acute kidney failure. [email or web address] Specimen Anatomical Collection Method Collection Time Receive d Time (Source) Location / / Volume Laterality Blood specimen 08/07/2017 7:30 AM 018 7:45 (specimen) EST AM EST Resulting Agency Comment Spec In Lab Yonathan Smith MD CHEMISTRY ORDERABLES Performing Organization Address City/[facility]/ZIP [facility] Phon e Number [address] POCT Glucose (08/07/2017 7:27 AM EST) athologist Signature POC Glucose 81 65 - 199 [facility] mg/dL [facility] Comment: Supplemental ranges: <140 mg/dL before meals <180 mg/dL all other times of the day Specimen Anatomical Collection Method Collection Time Receive d Time (Source) Location / / Volume Laterality Blood specimen 08/07/2017 7:27 AM 018 7:27 (specimen) EST AM EST Yonathan Smith MD POINT OF CARE TEST ORDERABLE S Performing Organization Address City/[facility] Phon e Number [address] APTT (08/07/2017 7:04 AM [...] Address City/State/[place] [address] (ABNORMAL) Prothrombin Time (08/07/2017 [...] Address City/State/[place] [address] POCT Glucose (08/07/2017 4:03 AM EST) athologist Signature POC Glucose 93 65 - 199 [facility]/dL [facility] Comment: Supplemental ranges: <140 mg/dL before meals <180 mg/dL all other times of the day Specimen Anatomical Collection Method Collection Time Receive d Time (Source) Location / / Volume Laterality Blood specimen 08/07/2017 4:03 AM 018 4:03 (specimen) EST AM EST Yonatahn Smith MD POINT OF CARE TEST ORDERABLE S Performing Organization Address City/State/[place] [address] POCT Glucose (08/07/2017 12:04 AM EST) athologist Signature POC Glucose 107 65 - 199 [facility] mg/dL [facility] Comment: Supplemental ranges: <140 mg/dL before meals <180 mg/dL all other times of the day Specimen Anatomical Collection Method Collection Time Receive d Time (Source) Location / / Volume Laterality Blood specimen 08/07/2017 12:04 8 (specimen) AM EST 12:04 AM EST Yonathan Smith MD POINT OF CARE TEST ORDERABLE S Performing Organization Address City/[facility]/ZIP Code Phon e Number [address] POCT Glucose (08/06/2017 7:56 PM EST) P athologist Signature POC Glucose 178 65 - 199 [facility] mg/dL [facility] Comment: Supplemental ranges: <140 mg/dL before meals <180 mg/dL all other times of the day Specimen Anatomical Collection Method Collection Time Receive d Time (Source) Location / / Volume Laterality Blood specimen 08/06/2017 7:56 PM 018 7:56 (specimen) EST PM EST Yonathan Smith MD POINT OF CARE TEST ORDERABLE S Performing Organization Address City/State/ZIP Code Phon e Number [address] TcPO2 (08/06/2017 2:32 PM EST) Component Value Ref Test Analysis Performed At Patholo gist Range Method Time Signature VB Text Department: Vascular Surgery Lab VASCUBASE Report Patient: [id number] (GREGORY HOANG) CPT: 1719924 ICD10: I99.8 Referring Physician: YONATHAN SMITH ?? [...] Truong, VAMSI)[id number] (Given - Provider: Dory Truong, AVMSI)1042 (Given - Provider: Dory Truong, VAMSI) 2-4 [...]
Routine documented in this encounter Care Teams House Calls Nurse Practitioner Relationship Specialty Start Date End Date Lovely Vicente MD PCP - General 04/16/[address] [place] [address] [address] [place] [address] documented as of this encounter
--- OUTSIDE RECORDS SUMMARY | 2022-05-20 09:36 | XMS_ITS | Encounter Summary ---
:1945 Author Organization [facility] [place] [address] Care Team Providers Name Role Phone Lovely Vicente MD Primary Care Provider Encounter Details Date Type Department Care Team Description 08/09/2017 Clinical Support Same Day at [facility] Canceled (D-SCHED ERROR [facility] / CORRECT ION ) [place] [address] Social History Tobacco Use Types Packs/Day [...] Dolan MD [facility] [place] [address] [place] [address] (Wo rk) 05/28/2022 Laboratory Appointment Lab 05/28/2022 Office Visit Cardiology Zulma Dolan [place] [facility] [place] [address] Liz Poole PA [facility] [place] [address] 06/10/2022 Office Visit Dermatology Laura Scherer MD [facility] [address], [place] [address] (Wo rk) documented as of this encounter Procedures Procedure Name Priority Date/Time Associated Diagnosis Comme nts CHIEF CONTROLLER TOWER 08/09/2017 12:00 AM Resul ts for this SCAN EST procedure are i n the results section. documented in this encounter Results SCAN DOC: CHIEF CONTROLLER TOWER (08/09/2017 12:00 AM EST) Narrative 08/09/2017 12:00 AM EST This result has an attachment that is no t available. Ordered by an unspecified provider. Scanning Provider MEDIA MGR SCAN EXT ORDR/RSLT documented in this encounter Visit Diagnoses Not on filedocumented in this encounter Care Teams Cyber Engineer Relationship Specialty Start Date End Date Lovely Vicente MD PCP - General 04/16/[address] [place] [address] documented as of this encounter
--- OUTSIDE RECORDS SUMMARY | 2022-05-20 09:36 | XMS_ITS | Encounter Summary ---
:1945 Author Organization [facility] [place] [address] Care Team Providers Name Role Phone Lovely Vicente MD Primary Care Provider Reason for Visit Auth/Cert Specialty Diagnoses / Procedures Referred By Contact Refer red To Contact Diagnoses Critical lower limb ischemia CELLULITIS RT FOOT Procedures EMERGENCY Referral ID Status Reason Start Date Expiration Date Visits Requ ested Visits Authorized [id number] 1 1 Encounter Details Date Type Department Care Team Description 08/09/2017 Surgery Main Operating Room Yonathan Smith AM PUTATION, Mary Hitchcock MD TRANSMETATARSAL ([facility] 12.71) [facility] DR Siddiqui [place] [address] [place] [address] [phone] Social History Tobacco Use Types Packs/Day Years [...] 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 Patient [...] Dorsalis Pedis (Ankle) Artery ?132 ? 0.94 ??Ocean-Biphasic ? Posterior Tibial (Ankle) Artery ??154 ? 1.10 ??Ocean-Biphasic ? Fourth Toe ? 67 ?0.48 ?? [...] foot. Discharge Conditions/Prognosis: Good Discharge to: [facility] Rehab Discharge Medications: Your Medications [...] For any problems or questions please call [phone] ZELDA Smith, firing pin gauger Nurse Clinician For issues on weeknights after 5pm and weekends please call [phone] and ask for the Vascular Fellow stoner hand. General Instructions None Future Appointments and Orders Future Appointments Provider Department Dept Phone 08/26/2017 4:00 PM Aurelia Rivera PA Vascular Surgery at [place] [phone] 09/07/2017 3:00 PM LAB, THREE L Lab 3L [facility] [phone] 09/07/2017 4:00 PM Luz Prescott MD Endocrinology at [place] [phone] 09/09/2017 8:00 AM Barbra Soares APRN Pain Management [facility] [place] [phone] Please bring a list of your current [...] For any problems or questions please call [phone] ZELDA Smith, firing pin gauger Nurse Clinician For issues on weeknights after 5pm and weekends please call [phone] and ask for the Vascular Fellow stoner hand. documented in this encounter Medications at [...] Discharge Note Patient Destination: [facility] ([facility]) [address] [id number] Transportation: with (at bedside) Time of Discharge: by 12 noon Level of Care: swing Patient Aware: yes Family Notified: yes Md to call report to: Yissel Quintero BRONC BREAKER already called RN to call report to: [phone] Shirin Wolf Office of Care Management Pager [phone] Shirin Wolf RN - 08/16/2017 10:[address] [facility] has offered pt swing bed. Pt and accept bed. will transport via car. BRONC BREAKER Yissel Quintero aware; d/c paperwork will be completed by [address] [facility] requests pt arrival by 1400 today; BRONC BREAKER, RN, and family aware. BRONC BREAKER called [facility] and was told that they prefer pt to arrive with wound vac dressing applied but clamped. BRONC BREAKER applied new wound vac dressing. RN has [facility] number to call report. PASSR completed; BRONC BREAKER paged to request provider signature in highlighted space. Indigo from [facility] notified via email that home wound vac now cancelled; [facility] has picked up from room and order cancelled. Packet started and provided to community artist. Medicare important message explained to patient, patient signed. Copy provided to patient and signature page to OCM for inclusion in pt EMR. L Radha Powers Yoselin - 08/16/2017 10:34 AM EST Office of Care Management/Operational Risk Manager Patient Name: Gregory Hoang : 1945 Patient has been offered a swing bed at . The patient will be transported by private transportation. No MD to MD report necessary Please call Nursing Report to [phone], ask for manager user interface. Info to accompany patient: Narcotic Prescriptions Copies of Medication Administration Records and IV sheets for past 10 days. Plan: Operational Risk Manager will be available to the patient and Biological Photographer-RN and/or Safety Specialist for further assistance. Patient will be discharged to: [address] [id number] Radha Powers, Operational Risk Manager Mira Truong, VAMSI - 08/15/2017 10:05 PM EST [address] Flores to ask if he wanted to hold metoprolol dose. BP 95/58. OK to hold this dose Courtney Brito - 08/15/2017 3:26 PM EST Office of Care Management(OCM)/Operational Risk Manager(RS)/ D/C Planning re : Patient is medically ready for d/c today. RS has been in contact with [facility] to see if they could offer a bed. [facility] is still reviewing the case and need their MD to review chart prior to accepting or declining. OCM team needs to check in with [facility] tomorrow to check on status. 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 staff: Looks well. Vac in [...] referral to: [facility] PHONE: [phone] FAX: [phone] CM spoke with RS who said that [...] rehab. Await recommendations from PT. Covering pager #[phone]. 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 Cow Washer Kaitlin Saha, RN Pager #[phone] Payam Rosales - 08/13/2017 2:37 PM EST [facility] Encounter Note Patient Name: Gregory Hoang : [id number] MR#: [id number] Admit Date: 08/06/2017 1:41 PM Hospital Day 7 days Narrative: Visited to introduce and assess acceptance of [facility]. Pt was awake, alert, oriented and in chair and family was there. Assessment:Patient coping positively with stresses of illness/hospitalization at this time. Pt says that he is hoping to get better and his family was there. Pt says that he has family care and supportand taking one day at time. Intervention and Outcome: Provided emotional support and encouraging presence. 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 A letter describing our affiliations was reviewed with them and theywere educated about their right to choose where referrals are placed. Patient requests referral to [facility] [place]. PHONE: [phone] FAX: [phone]. And Home NPWT (Negative Pressure Wound Therapy) aka wound vac device made available to pt. Serial # confirmed. Reviewed [facility] Proof of Delivery/Assignment of Benefits Statement(POD/AOB) Form w patient or authorized agent signing on behalf of patient. Copy of POD/AOB provided to pt and other copy faxed to [employer] @ fax# [phone] Expected date of discharge: 08/12/2017. 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 Heparin gtt continues to run. [...] of : 1945 AGE 72 y.o. 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 Unsuccessful draw attempt, another agriscience technology instructor will come [facility] to collect blood for PTT test. 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 Vascular resident stoner hand and will forward result to the team prior to rounds. 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 Patient [...] at [facility] MAIN OR Functional Status/Social Hx: [...] left blue toes with CTA showing R STEM MOUNTER pseudoaneurysm (now thrombosed) and occluded ATs bilaterally. [...] 2.5x80 5. Completion RLE angiogram 6. L STEM MOUNTER angiogram 7. 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 - L STEM MOUNTER angriogram demonstrated: High femoral bifurcation over the proximal half of the femoral head. L STEM MOUNTER access in the distal L STEM MOUNTER. - Closure device: Mynx Technical Procedure: The [...] for a 45cm 5F Destination. V18 and Olin and QuickCross catheters were used to select [...] 5F. A stationed picture of the L STEM MOUNTER was performed as the patient was noted to have a very high bifurcation. Access appeared in the distal R STEM MOUNTER. Closure and sheath removal was performed with [...] PM EST 1440 report called to 5 [place] nurse Tessa RN documented in this encounter [...] pt and pt's spouse. Discharge to [facility]. Goal: Individualization & Mutuality Outcome: [...] sit/sit to supine -- Bed Mobility Goal, Coleman Level independent -- Bed Mobility Goal, Date [...] days -- Transfer Training Goal, Activity Type eqr-aw-scncu/lqjys-jx-tev -- Transfer Train Goal, Coleman Level conditional independence -- Transfer Train Goal, [...] call cabello within reach, Hourly rounding by RN/PHARMACY INFORMATICIST. Bed alarm / Chair alarm. Patient-specific fall [...] MD - 08/15/2017 6:28 PM EST [facility] Operative Note Patient Name: Gregory Hoang : [id number] MR#: [id number] Case Date: 08/09/2017 Surgeon: Surgeon(s) and Role: [...] 2.5x80 5. Completion RLE angiogram 6. L STEM MOUNTER angiogram 7. Mynx closure Precautions/Restrictions: fall, sternal [...] other (see comments) (or swing bed) Pager: [phone] BASSAM ELIAS, PT 08/14/2017 Inpatient Physical Therapy [...] to Achieve by discharge Gait Training Goal, Coleman Level conditional independence;set up required Gait Training [...] facilities over the weekend except for [facility]. CM spoke with [facility] CM Drea Sandhu, VAMSI who said that they do not anticipate any beds over the weekend. Reviewed with patient/ that they need to be aware that patient will need to take the first bed offered at the facilities that they make referrals to. Their choices are: 1- [facility] PHONE: [phone] FAX: [phone] 2- [facility] ([facility]) [address] [place] [address] 3- [facility]) [address] [place] [address] I have discussed Medicare/Private Insurance [...] RS/CM on Wednesday to follow-up. Covering pager #[phone] for today. Plan of Care - Henrique [...] with additional findings of pseudoaneurysm on R STEM MOUNTER and bilateral anterior tibial artery occlusions. Was [...] an outpatient once discharged. Have patient call [phone] to set up an appointment. Follow-up: Dermatology will sign-off for now. Please do not hesitate to contact us if you have any questions orconcerns. Impression and Recommendations discussed with primary team on 08/13/2017. Kaor Henderson MD Resident in Dermatology Section of Dermatology, Department of Surgery [facility] Pager [phone] Patient seen and evaluated with staff Reservoir Caretaker: Halima Cordero MD Section of Dermatology Research [...] Outcome: Ongoing (Interventions Implemented as Appropriate) 08/12/17 6766 Coping/Psychosocial Plan Of Care Reviewed With patient;spouse [...] 2.5x80 5. Completion RLE angiogram 6. L STEM MOUNTER angiogram 7. Mynx closure Active Non-Hospital Problems [...] home with home health ([facility] PT&OT) Pager: [phone] YASIR TELLO OT 08/12/2017 Occupational Therapy Rehabilitation [...] 2.5x80 5. Completion RLE angiogram 6. L STEM MOUNTER angiogram 7. Mynx closure Past Medical History: [...] with 24/7 assistance and maximal services) Pager: [phone] NICHOLAS MORA, PT 08/12/2017 Physical Therapy Rehabilitation [...] sit/sit to supine -- Bed Mobility Goal, Coleman Level independent -- Bed Mobility Goal, Outcome Achieved -- goal ongoing Goal: Gait Training Goal Stand Alone Therapy Goal Outcome: Ongoing (Interventions Implemented as Appropriate) 08/11/17 1310 08/12/17 1510 Gait Training Goal Gait Training Goal, Date Established 08/11/17 -- Gait Training Goal, Time to Achieve 5 - 7 days -- Gait Training Goal, Coleman Level conditional independence -- Gait Training Goal, [...] days -- Transfer Training Goal, Activity Type xcn-ks-catrc/nxeec-qb-igq -- Transfer Train Goal, Coleman Level conditional independence -- Transfer Training Goal, [...] MD - 08/11/2017 2:52 PM EST [facility] Operative Note Patient Name: Gregory Hoang : [id number] MR#: [id number] Case Date: 08/11/2017 Surgeon: Surgeon(s) and Role: [...] 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 Completion RLE angiogram 6. L STEM MOUNTER angiogram 7. Mynx closure He is very [...] Anticipated Discharge Disposition: inpatient rehabilitation facility Pager: [phone] LAWRENCE GONZALEZ, PT 08/11/2017 Physical Therapy Rehabilitation [...] to sit/sit to supine Bed Mobility Goal, Coleman Level independent Goal: Gait Training Goal Stand Alone Therapy Goal Outcome: Ongoing (Interventions Implemented as Appropriate) 08/11/17 1310 Gait Training Goal Gait Training Goal, Date Established 08/11/17 Gait Training Goal, Time to Achieve 5 - 7 days Gait Training Goal, Coleman Level conditional independence Gait Training Goal, Assist [...] 7 days Transfer Training Goal, Activity Type hxn-bk-kwdpd/zosqc-dc-qjm Transfer Train Goal, Coleman Level conditional independence Plan of David DelloAnnetta [...] call cabello within reach, Hourly rounding by RN/PHARMACY INFORMATICIST. Bed alarm / Chair alarm. ? Patient-specific [...] Hospitalizations Within the Past 30 Days: [facility] 07/20/2017 Anticipated Length Of Stay (If known): Expected Length of Hospitalization: 5-7 days2-3 days Current Decision-Making Capacity: Alert and oriented x 4 Advance Care Planning: on file Kisha Hoang [facility] [phone] Current Coping/Education/Information Needs: pt and spouse state [...] Health/Prescription Coverage: Primary Insurance: MEDICARE Secondary Insurance: [employer] [place] Prescription Coverage: See above Preferred Pharmacy: [facility] Other: N/A Primary Care Provider: Lovely Vicente MD [phone] Patient/Caregiver Goals of Treatment: Patient plans to [...] of care planning. Kaitlin Saha RN Pager: [phone] Plan of Care - Melba Jaramillo RN [...] Overview Goal: Plan of Care Review 08/08/17 5884 Coping/Psychosocial Plan Of Care Reviewed With patient [...] call cabello within reach, Hourly rounding by RN/PHARMACY INFORMATICIST. Bed alarm / Chair alarm. Patient-specific fall prevention interventions for sensory deficits provided, if applicable: [X] Yes CPG GOAL OUTCOME EVALUATION: Goal: Fall Prevention-Safe Patient Handling Outcome: Ongoing (Interventions Implemented as Appropriate) 08/06/17 1700 08/06/17199908/07/17 9324 Positioning Body Position -- up in chair [...] at bedside and MD TEAM Carrying pager [phone] contacted (via Radio page) and notified of [...] Cardiology Zulma Dolan MD [facility] [place], [place] [address] (Wo rk) 05/28/2022 Laboratory Appointment Lab 05/28/2022 Office Visit Cardiology Zulma Dolan MD [facility] [place] [address] Liz Poole PA [facility] [place] [address] 06/10/2022 Office Visit Dermatology Laura Scherer MD [facility] [address] [place], [place] [address] (Wo rk) documented as of [...] section. TYPE AND SCREEN Routine 08/09/2017 1:10 ([facility]/CGP/SHANDA) AM EST BASIC METABOLIC PANEL Routine 08/09/2017 [...] [address] mg/dL [facility] [...] Organization Address City/State/[place] [address] [facility] [address] (ABNORMAL) Differential, Automated (08/16/2017 5:08 AM EST) [facility] Method Time Signature Neutrophils % 73.9 % [facility] LABORATORY Neutr Abs (ANC) 5.37 1.70 - [facility] 6.10 [facility] x10(3)/[facility] LABORATORY Lymphocytes % 10.1 % [facility] LABORATORY Lymphocytes Abs 0.7 (L) 0.9 - 3.2 [facility] x10(3)/[facility] LABORATORY Monocytes % 10.1 % [facility] LABORATORY Monocyte Abs 0.7 0.3 - 0.9 [facility] x10(3)/[facility] LABORATORY Eosinophils % 5.1 % [facility] LABORATORY Eosinophils Abs 0.4 0.0 - 0.4 [facility] x10(3)/[facility] LABORATORY Basophils % 0.4 % [facility] LABORATORY Basophils Abs 0.0 0.0 - 0.1 [facility] x10(3)/[facility] LABORATORY [...] 0.04 x10(3)/[facility] LABORATORY Specimen Anatomical Collection Method Collection Time Receive d Time (Source) Location / / Volume Laterality Blood specimen 08/16/2017 5:08 AM 018 5:20 (specimen) EST AM EST Resulting Agency Comment Spec In Lab Yonathan Smith MD HEMATOLOGY ORDERABLES Performing Organization Address City/State/[place] [address] [facility] [address] (ABNORMAL) Hemogram (08/16/2017 5:08 AM EST) Analysis Performed At Patho logist Time Signature WBC 7.3 4.0 - 9.5 [facility] x10(3)/[facility] LABORATORY RBC 3.36 (L) 4.58 - [facility] 5.54 [facility] x10(6)/[facility] LABORATORY Hemoglobin 9.7 (L) 13.7 - [facility] 16.5 gm/dL [facility] LABORATORY Hematocrit 30.3 (L) 40.5 - [facility] 48.5 % [facility] LABORATORY MCV 90.2 82.9 - [facility] 93.1 [facility] LABORATORY MCH 28.9 27.5 - [facility] 32.[address] [facility] LABORATORY MCHC 32.0 32.0 - [facility] 35.7 gm/dL [facility] LABORATORY Platelets 282 145 - 357 [facility] x10(3)/[facility] LABORATORY RDWSD 53.9 (H) 36.0 - [facility] 45.0 [facility] LABORATORY RDWCV 16.5 (H) 11.4 - [facility] 13.8 % [facility] LABORATORY MPV 9.0 7.6 - 12.9 [facility] LABORATORY nRBC % Auto 0.0 % [facility] LABORATORY nRBC Abs Auto 0.000 0.000 - [facility] 0.000 [facility] x10(3)/[facility] LABORATORY Specimen Anatomical Collection Method Collection Time Receive d Time (Source) Location / / Volume Laterality Blood specimen 08/16/2017 5:08 AM 018 5:20 (specimen) EST AM EST Resulting Agency Comment Spec In Lab Yonathan Smith MD HEMATOLOGY ORDERABLES Performing Organization Address City/State/[place] [address] (ABNORMAL) Basic Metabolic Panel (non-fasting) (08/16/2017 5:08 AM EST) P athologist Signature Glucose Lvl 141 65 - 199 [facility] mg/dL [facility] [...] or in patients with acute kidney failure. [email or web address] Specimen Anatomical Collection Method Collection Time Receive d Time (Source) Location / / Volume Laterality Blood specimen 08/16/2017 5:08 AM 018 5:20 (specimen) EST AM EST Resulting Agency Comment Spec In Lab Yonathan Smith MD CHEMISTRY ORDERABLES Performing Organization Address City/State/[place] [address] (ABNORMAL) Prothrombin Time (08/16/2017 [...] Smith MD HEMATOLOGY ORDERABLES Performing Organization Address City/[facility]/ZIP Code Phon e Number [address] POCT Glucose (08/16/2017 4:09 AM EST) athologist Signature POC Glucose 147 65 - 199 [facility] RYAN mg/dL [facility] [...] [facility]/ZIP Code Phon e Number [address] POCT Glucose (08/15/2017 11:56 PM EST) athologist Signature POC Glucose 176 65 - 199 [place] mg/dL [facility] [...] [facility]/ZIP Code Phon e Number [address] POCT Glucose (08/15/2017 8:05 PM EST) athologist Signature POC Glucose 136 65 - 199 [place] RYAN mg/dL [facility] [...] Organization Address City/State/[place] [address] (ABNORMAL) POCT Glucose (08/15/2017 4:50 PM EST) athologist Signature POC Glucose 232 (H) 65 - 199 [place] mg/dL [facility] [...] Organization Address City/State/[place] [address] POCT Glucose (08/15/2017 12:04 PM EST) athologist Signature POC Glucose 135 65 - 199 [place] mg/dL [facility] [...] Organization Address City/State/[place] [address] POCT Glucose (08/15/2017 7:36 AM EST) athologist Signature POC Glucose 124 65 - 199 [place] mg/dL [facility] [...] Organization Address City/State/[place] [address] (ABNORMAL) Differential, Automated (08/15/2017 6:22 AM EST) [facility] Method Time Signature Neutrophils % 76.1 % [facility] LABORATORY Neutr Abs (ANC) 6.62 (H) 1.70 - [facility] 6.10 [facility] x10(3)/[facility] LABORATORY Lymphocytes % 9.3 % [facility] LABORATORY Lymphocytes Abs 0.8 (L) 0.9 - 3.2 [facility] x10(3)/[facility] LABORATORY Monocytes % 9.4 % [facility] LABORATORY Monocyte Abs 0.8 0.3 - 0.9 [facility] x10(3)/[facility] LABORATORY Eosinophils % 4.0 % [facility] LABORATORY Eosinophils Abs 0.4 0.0 - 0.4 [facility] x10(3)/[facility] LABORATORY Basophils % 0.6 % [facility] LABORATORY Basophils Abs 0.0 0.0 - 0.1 [facility] x10(3)/[facility] LABORATORY Immature [...] Smith MD HEMATOLOGY ORDERABLES Performing Organization Address City/[facility]/ZIP Code Phon e Number [address] (ABNORMAL) Hemogram (08/15/2017 6:22 AM EST) Analysis Performed At Patho logist Time Signature WBC 8.7 4.0 - 9.5 [facility] x[facility](3[facility] LABORATORY RBC 3.21 (L) 4.58 - [place] 5.54 [facility] x10(6)/[facility] LABORATORY Hemoglobin 9.1 (L) 13.7 - [facility] 16.5 gm/dL [facility] LABORATORY Hematocrit 29.0 (L) 40.5 - [facility] 48.5 % [facility] LABORATORY MCV 90.3 82.9 - [facility] 93.1 [facility] LABORATORY MCH 28.3 27.5 - [facility] RYAN 32.[address] [facility] LABORATORY MCHC 31.4 (L) 32.0 - [facility] 35.7 gm/dL [facility] LABORATORY Platelets 254 145 - 357 [facility] x10(3)/[facility] LABORATORY RDWSD 53.9 (H) 36.0 - [facility] RYAN 45.0 [facility] LABORATORY RDWCV 16.3 (H) 11.4 - [facility] RYAN 13.8 % [facility] LABORATORY MPV 8.8 7.6 - 12.9 [facility] LABORATORY nRBC % Auto 0.0 % [facility] LABORATORY nRBC Abs Auto 0.000 0.000 - [facility] RYAN 0.000 [facility] x10(3)/[facility] LABORATORY Specimen Anatomical Collection Method Collection Time Receive d Time (Source) Location / / Volume Laterality Blood specimen 08/15/2017 6:22 AM 018 6:33 (specimen) EST AM EST Resulting Agency Comment Spec In Lab Yonathan Smith MD HEMATOLOGY ORDERABLES Performing Organization Address City/State/ZIP Code Phon e Number [facility] [place] [address] (ABNORMAL) Basic Metabolic Panel (non-fasting) (08/15/2017 6:22 AM EST) P athologist Signature Glucose Lvl 118 65 - 199 [facility] mg/dL [facility] LABORATORY Estimated GFR >60 >=60 [facility] LABORATORY Comment: The reported eGFR should be multiplied b y 1.2 for patients. The MDRD is not an appropriate measure o f renal function for patients with body mass extremes or in patients with acute kidney failure. [email or web address] [email or web address] Specimen Anatomical Collection Method Collection Time Receive d Time (Source) Location / / Volume Laterality Blood specimen 08/15/2017 6:22 AM 018 6:33 (specimen) EST AM EST Resulting Agency Comment Spec In Lab Yonathan Smith MD CHEMISTRY ORDERABLES Performing Organization Address City/State/ZIP Code Phon e Number [address] (ABNORMAL) Prothrombin Time (08/15/2017 [...] Address City/State/ZIP Code Phon e Number [address] POCT Glucose (08/15/2017 4:33 AM EST) athologist Signature POC Glucose 164 65 - 199 [facility] mg/[facility] [...] Address City/State/ZIP Code Phon e Number [address] POCT Glucose (08/15/2017 12:12 AM EST) athologist Signature POC Glucose 89 65 - 199 [facility] mg/dL [facility] [...] Address City/State/ZIP Code Phon e Number [address] (ABNORMAL) POCT Glucose (08/14/2017 8:07 PM EST) athologist Signature POC Glucose 204 (H) 65 - 199 [place] mg/dL [facility] [...] [facility] [address] POCT Glucose (08/14/2017 5:11 PM EST) athologist Signature POC Glucose 174 65 - 199 [place] mg/dL [facility] [...] Organization Address City/State/[place] [address] POCT Glucose (08/14/2017 12:10 PM EST) athologist Signature POC Glucose 141 65 - 199 [place] mg/dL [facility] [...] Address City/State/ZIP Code Phon e Number [address] POCT Glucose (08/14/2017 8:07 AM EST) P athologist Signature POC Glucose 158 65 - 199 [facility] mg/dL [facility] [...] Address City/State/ZIP Code Phon e Number [address] (ABNORMAL) Differential, Automated (08/14/2017 4:52 AM EST) Patholo gist Method Time Signature Neutrophils % 78.6 % [facility] LABORATORY Neutr Abs (ANC) 7.70 (H) 1.70 - [facility] 6.10 [facility] x10(3)/[facility] LABORATORY Lymphocytes % 7.8 % [facility] LABORATORY Lymphocytes Abs 0.8 (L) 0.9 - 3.2 [facility] x10(3)/[facility] LABORATORY Monocytes % 8.8 % [facility] LABORATORY Monocyte Abs 0.9 0.3 - 0.9 [facility] x10(3)/[facility] LABORATORY Eosinophils % 4.0 % [facility] LABORATORY Eosinophils Abs 0.4 0.0 - 0.4 [facility] x10(3)/[facility] LABORATORY Basophils % 0.5 % [facility] LABORATORY Basophils Abs 0.0 0.0 - 0.1 [facility] x10(3)/[facility] LABORATORY Immature [...] 0.04 x10(3)/[facility] LABORATORY Specimen Anatomical Collection Method Collection Time Receive d Time (Source) Location / / Volume Laterality Blood specimen 08/14/2017 4:52 AM 018 5:08 (specimen) EST AM EST Resulting Agency Comment Spec In Lab Yonathan Smith MD HEMATOLOGY ORDERABLES Performing Organization Address City/State/[place] [address] (ABNORMAL) Hemogram (08/14/2017 4:52 AM EST) Analysis Performed At Patho logist Time Signature WBC 9.8 (H) 4.0 - 9.5 [facility] x10(3)/[facility] LABORATORY RBC 3.32 (L) 4.58 - [facility] 5.54 [facility] x10(6)/[facility] LABORATORY Hemoglobin 9.5 (L) 13.7 - [facility] 16.5 gm/dL [facility] LABORATORY Hematocrit 30.3 (L) 40.5 - [facility] 48.5 % [facility] LABORATORY MCV 91.3 82.9 - [facility] 93.1 [facility] LABORATORY MCH 28.6 27.5 - [facility] 32.[address] [facility] LABORATORY MCHC 31.4 (L) 32.0 - [facility] 35.7 gm/dL [facility] LABORATORY Platelets 263 145 - 357 [facility] x10(3)/[facility] LABORATORY RDWSD 54.8 (H) 36.0 - [facility] 45.0 [facility] LABORATORY RDWCV 16.5 (H) 11.4 - [facility] 13.8 % [facility] LABORATORY MPV 9.1 7.6 - 12.9 [facility] LABORATORY nRBC % Auto 0.0 % [facility] LABORATORY nRBC Abs Auto 0.000 0.000 - [facility] 0.000 [facility] x10(3)/[facility] LABORATORY Specimen Anatomical Collection Method Collection Time Receive d Time (Source) Location / / Volume Laterality Blood specimen 08/14/2017 4:52 AM 018 5:08 (specimen) EST AM EST Resulting Agency Comment Spec In Lab Yonathan Smith MD HEMATOLOGY ORDERABLES Performing Organization Address City/[facility]/[place] [address] (ABNORMAL) Prothrombin Time (08/14/2017 [...] Smith MD HEMATOLOGY ORDERABLES Performing Organization Address City/[facility]/[place] [address] (ABNORMAL) Basic Metabolic Panel (non-fasting) (08/14/2017 4:52 AM EST) athologist Signature Glucose Lvl 135 65 - 199 [facility] mg/dL [facility] [...] or in patients with acute kidney failure. [email or web address] Specimen Anatomical Collection Method Collection Time Receive d Time (Source) Location / / Volume Laterality Blood specimen 08/14/2017 4:52 AM 018 5:08 (specimen) EST AM EST Resulting Agency Comment Spec In Lab Yonathan Smith MD CHEMISTRY ORDERABLES Performing Organization Address City/[facility]/ZIP Code Phon e Number [address] POCT Glucose (08/14/2017 3:56 AM EST) P athologist Signature POC Glucose 135 65 - 199 [facility] mg/dL [facility] [address] POCT Glucose (08/13/2017 11:13 PM EST) athologist Signature POC Glucose 118 65 - 199 [place] mg/dL [facility] [...] Organization Address City/State/[place] [address] (ABNORMAL) POCT Glucose (08/13/2017 8:08 PM EST) athologist Signature POC Glucose 204 (H) 65 - 199 [facility] mg/[facility] [...] Organization Address City/State/[place] [address] POCT Glucose (08/13/2017 4:02 PM EST) athologist Signature POC Glucose 145 65 - 199 [facility] RY[facility] mg/dL [facility] [...] Organization Address City/State/[place] [address] POCT Glucose (08/13/2017 11:31 AM EST) athologist Signature POC Glucose 179 65 - 199 [facility] mg/[facility] [...] [facility] [address] (ABNORMAL) POCT Glucose (08/13/2017 10:16 AM EST) athologist Signature POC Glucose 211 (H) 65 - 199 [facility] mg/[facility] [...] [facility]/[place] [address] JULIAN, legs, multiple levels (08/13/2017 7:42 AM EST) Component Value Ref Test Analysis Performed At [facility] Method Time Signature VB Text Department: Vascular Surgery Lab VASCUBASE Report Patient: [id number] (GREGORY HOANG) CPT: 15574 ICD10: I99.8 Referring Physician: YONATHAN SMITH ?? Indications: s/p R 1,2,3 toe amps with red left foot, need n ew baseline Diabetes mellitus: yes ICD10 Diagnosis Code: I99.8 Findings: Right ?Pressure (mm Hg) ?? JULIAN ??Waveform ?TBI ?? Brachial Artery ?138 ? Dorsalis Pedis (Ankle) Arter y ?132 ? 0.94 ??Ocean- Biphasic ? Posterior Tibial (Ankle) Art anila ??154 ? 1.10 ??Ocean-Biphasic ? Fourth Toe ? 67 ? 0.48 [...] 199 [facility] mg/dL [facility] [...] Organization Address City/State/[place] [address] (ABNORMAL) Differential, Automated (08/13/2017 5:33 AM EST) Patholo gist Method Time Signature Neutrophils % 77.8 % [facility] LABORATORY Neutr Abs (ANC) 7.83 (H) 1.70 - [facility] 6.10 [facility] x10(3)/[facility] LABORATORY Lymphocytes % 8.4 % [facility] LABORATORY Lymphocytes Abs 0.8 (L) 0.9 - 3.2 [facility] x10(3)/[facility] LABORATORY Monocytes % 8.3 % [facility] LABORATORY Monocyte Abs 0.8 0.3 - 0.9 [facility] x10(3)/[facility] LABORATORY Eosinophils % 4.6 % [facility] LABORATORY Eosinophils Abs 0.5 (H) 0.0 - 0.4 [facility] x10(3)/[facility] LABORATORY Basophils % 0.5 % [facility] LABORATORY Basophils Abs 0.0 0.0 - 0.1 [facility] x10(3)/[facility] LABORATORY Immature [...] Melisa Gran Abs 0.04 0.00 - 0.04 x10(3)/[facility] LABORATORY Specimen Anatomical Collection Method Collection Time Receive d Time (Source) Location / / Volume Laterality Blood specimen 08/13/2017 5:33 AM 018 6:04 (specimen) EST AM EST Resulting Agency Comment Spec In Lab Yonathan Smith MD HEMATOLOGY ORDERABLES Performing Organization Address City/State/ZIP Code Phon e Number [place] [id number] HOSPITAL LABORATORY Drive (ABNORMAL) Hemogram (08/13/2017 5:33 AM EST) Analysis Performed At Patho logist Time Signature WBC 10.1 (H) 4.0 - 9.5 [facility] x10(3)/[facility] LABORATORY RBC 3.21 (L) 4.58 - [facility] 5.54 [facility] x10(6)/[facility] LABORATORY Hemoglobin 9.2 (L) 13.7 - [facility] 16.5 gm/dL [facility] LABORATORY Hematocrit 29.6 (L) 40.5 - [facility] 48.5 % [facility] LABORATORY MCV 92.2 82.9 - [facility] 93.1 [facility] LABORATORY MCH 28.7 27.5 - [facility] 32.[address] [facility] LABORATORY MCHC 31.1 (L) 32.0 - [facility] 35.7 gm/dL [facility] LABORATORY Platelets 263 145 - 357 [facility] x10(3)/[facility] LABORATORY RDWSD 54.8 (H) 36.0 - [facility] 45.0 [facility] LABORATORY RDWCV 16.4 (H) 11.4 - [facility] 13.8 % [facility] LABORATORY MPV 9.2 7.6 - 12.9 [facility] LABORATORY nRBC % Auto 0.0 % [facility] LABORATORY nRBC Abs Auto 0.000 0.000 - [facility] 0.000 [facility] x10(3)/[facility] LABORATORY Specimen Anatomical Collection Method Collection Time Receive d Time (Source) Location / / Volume Laterality Blood specimen 08/13/2017 5:33 AM 018 6:04 (specimen) EST AM EST Resulting Agency Comment Spec In Lab Yonathan Smith MD HEMATOLOGY ORDERABLES Performing Organization Address City/State/[place] [address] (ABNORMAL) Prothrombin Time (08/13/2017 [...] Organization Address City/State/[place] [address] (ABNORMAL) Basic Metabolic Panel (non-fasting) (08/13/2017 5:33 AM EST) P athologist Signature Glucose Lvl 126 65 - 199 [facility] mg/dL [facility] LABOR[facility]ORY Estimated GFR >60 >=60 [facility] LABORATORY Comment: The reported eGFR should be multiplied b y 1.2 for patients. The MDRD is not an appropriate measure o f renal function for patients with body mass extremes or in patients with acute kidney failure. [email or web address] [email or web address] Specimen Anatomical Collection Method Collection Time Receive d Time (Source) Location / / Volume Laterality Blood specimen 08/13/2017 5:33 AM 018 6:04 (specimen) EST AM EST Resulting Agency Comment Spec In Lab Yonathan Smith MD CHEMISTRY ORDERABLES Performing Organization Address City/State/ZIP Code Phon e Number [address] POCT Glucose (08/13/2017 4:29 AM EST) athologist Signature POC Glucose 111 65 - 199 [place] mg/dL [facility] [...] [facility] [address] POCT Glucose (08/12/2017 11:28 PM EST) athologist Signature POC Glucose 164 65 - 199 [place] mg/dL [facility] [...] [facility]ZIP Code Phon e Number [address] (ABNORMAL) POCT Glucose (08/12/2017 7:40 PM EST) athologist Signature POC Glucose 209 (H) 65 - 199 [place] mg/dL [facility] [...] Address City/State/ZIP Code Phon e Number [address] POCT Glucose (08/12/2017 4:24 PM EST) athologist Signature POC Glucose 161 65 - 199 [facility] mg/dL [facility] [...] Address City/State/ZIP Code Phon e Number [address] POCT Glucose (08/12/2017 12:00 PM EST) athologist Signature POC Glucose 167 65 - 199 [place] mg/dL [facility] [...] Address City/State/ZIP Code Phon e Number [address] POCT Glucose (08/12/2017 7:25 AM EST) athologist Signature POC Glucose 152 65 - 199 [place] mg/dL [facility] [...] Organization Address City/State/[place] [address] (ABNORMAL) Differential, Automated (08/12/2017 6:29 AM EST) [facility] Method Time Signature Neutrophils % 78.7 % [facility] LABORATORY Neutr Abs (ANC) 7.94 (H) 1.70 - [facility] 6.10 [facility] x10(3)/[facility] LABORATORY Lymphocytes % 8.8 % [facility] LABORATORY Lymphocytes Abs 0.9 0.9 - 3.2 [facility] x10(3)/[facility] LABORATORY Monocytes % 7.8 % [facility] LABORATORY Monocyte Abs 0.8 0.3 - 0.9 [facility] x10(3)/[facility] LABORATORY Eosinophils % 3.9 % [facility] LABORATORY Eosinophils Abs 0.4 0.0 - 0.4 [facility] x10(3)/[facility] LABORATORY Basophils % 0.3 % [facility] LABORATORY Basophils Abs 0.0 0.0 - 0.1 [facility] x10(3)/[facility] LABORATORY Immature [...] Address City/State/ZIP Code Phon e Number [address] (ABNORMAL) Hemogram (08/12/2017 6:29 AM EST) Analysis Performed At Patho logist Time Signature WBC 10.1 (H) 4.0 - 9.5 [facility] x10(3)/[facility] LABORATORY RBC 3.02 (L) 4.58 - [place] 5.54 [facility] x10(6)/[facility] LABORATORY Hemoglobin 8.7 (L) 13.7 - [facility] 16.5 gm/dL [facility] LABORATORY Hematocrit 28.1 (L) 40.5 - [facility] 48.5 % [facility] LABORATORY MCV 93.0 82.9 - [facility] 93.1 [facility] LABORATORY MCH 28.8 27.5 - [place] 32.[address] [facility] LABORATORY MCHC 31.0 (L) 32.0 - [place] [facility] 35.7 gm/dL [facility] LABORATORY Platelets 223 145 - 357 [facility] x10(3)/[facility] LABORATORY RDWSD 56.1 (H) 36.0 - [place] 45.0 [facility] LABORATORY RDWCV 16.4 (H) 11.4 - [facility] RYAN 13.8 % [facility] LABORATORY MPV 9.0 7.6 - 12.9 [facility] LABORATORY nRBC % Auto 0.0 % [facility] LABORATORY nRBC Abs Auto 0.000 0.000 - [place] 0.000 [facility] x10(3)/[facility] LABORATORY Specimen Anatomical Collection Method Collection Time Receive d Time (Source) Location / / Volume Laterality Blood specimen 08/12/2017 6:29 AM 018 6:38 (specimen) EST AM EST Resulting Agency Comment Spec In Lab Yonathan Smith MD HEMATOLOGY ORDERABLES Performing Organization Address City/State/[place] [address] (ABNORMAL) Prothrombin Time (08/12/2017 [...] Organization Address City/State/[place] [address] (ABNORMAL) Basic Metabolic Panel (non-fasting) (08/12/2017 6:29 AM EST) athologist Signature Glucose Lvl 151 65 - 199 [facility] mg/dL [facility] LAB[facility] Estimated GFR >60 >=60 [facility] LABORATORY Comment: The reported eGFR should be multiplied b y 1.2 for patients. The MDRD is not an appropriate measure o f renal function for patients with body mass extremes or in patients with acute kidney failure. [email or web address] Specimen Anatomical Collection Method Collection Time Receive d Time (Source) Location / / Volume Laterality Blood specimen 08/12/2017 6:29 AM 018 6:38 (specimen) EST AM EST Resulting Agency Comment Spec In Lab Yonathan Smith MD CHEMISTRY ORDERABLES Performing Organization Address City/[facility]/ZIP Code Phon e Number [address] POCT Glucose (08/12/2017 4:08 AM EST) athologist Signature POC Glucose 181 65 - 199 [facility] [...] Organization Address City/State/[place] [address] (ABNORMAL) POCT Glucose (08/12/2017 12:17 AM EST) P athologist Signature POC Glucose 221 (H) 65 - 199 [facility] [...] [facility]ZIP Code Phon e Number [address] (ABNORMAL) POCT Glucose (08/11/2017 8:52 PM EST) athologist Signature POC Glucose 221 (H) 65 - 199 [facility] mg/dL [facility] [...] [facility] [address] POCT Glucose (08/11/2017 5:59 PM EST) athologist Signature POC Glucose 169 65 - 199 [facility] mg/dL [facility] [...] [facility] [address] (ABNORMAL) POCT Glucose (08/11/2017 4:08 PM EST) athologist Signature POC Glucose 240 (H) 65 - 199 [facility] mg/dL [facility] [...] Address City/State/ZIP Code Phon e Number [address] POCT Glucose (08/11/2017 12:04 PM EST) athologist Signature POC Glucose 182 65 - 199 [facility] [...] Address City/State/ZIP Code Phon e Number [address] POCT Glucose (08/11/2017 7:31 AM EST) athologist Signature POC Glucose 156 65 - 199 [facility] mg/[facility] [...] Address City/State/ZIP Code Phon e Number [address] (ABNORMAL) Differential, Automated (08/11/2017 6:16 AM EST) [facility] gist Method Time Signature Neutrophils % 83.7 % [facility] LABORATORY Neutr Abs (ANC) 10.76 (H) 1.70 - [facility] 6.10 [facility] x10(3)/[facility] LABORATORY Lymphocytes % 6.0 % [facility] LABORATORY Lymphocytes Abs 0.8 (L) 0.9 - 3.2 [facility] x10(3)/[facility] LABORATORY Monocytes % 7.5 % [facility] LABORATORY Monocyte Abs 1.0 (H) 0.3 - 0.9 [facility] x10(3)/[facility] LABORATORY Eosinophils % 2.0 % [facility] LABORATORY Eosinophils Abs 0.3 0.0 - 0.4 [facility] x10(3)/[facility] LABORATORY Basophils % 0.3 % [facility] LABORATORY Basophils Abs 0.0 0.0 - 0.1 [facility] x10(3)/[facility] LABORATORY Immature [...] Organization Address City/State/[place] [address] (ABNORMAL) Hemogram (08/11/2017 6:16 AM EST) Analysis Performed At Patho logist Time Signature WBC 12.9 (H) 4.0 - 9.5 [facility] x10(3)/[facility] LABORATORY RBC 3.28 (L) 4.58 - [facility] 5.54 [facility] x10(6)/[facility] LABORATORY Hemoglobin 9.5 (L) 13.7 - [facility] 16.5 gm/dL [facility] LABORATORY Hematocrit 29.8 (L) 40.5 - [facility] 48.[facility] % [facility] LABORATORY MCV 90.9 82.9 - [facility] 93.1 [facility] LABORATORY MCH 29.0 27.5 - [place] R[place]AN 32.[address] [facility] LABORATORY MCHC 31.9 (L) 32.0 - [place] DAV[place] 35.7 gm/dL [facility] LABORATORY Platelets 236 145 - 357 [facility] x10(3)/[facility] LABORATORY RDWSD 53.5 (H) 36.0 - [facility] 45.0 [facility] LABORATORY RDWCV 16.3 (H) 11.4 - [facility] RYAN 13.8 % [facility] LABORATORY MPV 8.8 7.6 - 12.9 [facility] LABORATORY nRBC % Auto 0.0 % [facility] LABORATORY nRBC Abs Auto 0.000 0.000 - [facility] RYAN 0.000 [facility] x10(3)/[facility] LABORATORY Specimen Anatomical Collection Method Collection Time Receive d Time (Source) Location / / Volume Laterality Blood specimen 08/11/2017 6:16 AM 018 6:24 (specimen) EST AM EST Resulting Agency Comment Spec In Lab Yonathan Smith MD HEMATOLOGY ORDERABLES Performing Organization Address City/State/[place] [address] (ABNORMAL) Prothrombin Time (08/11/2017 [...] Smith MD HEMATOLOGY ORDERABLES Performing Organization Address City/[facility]/[place] [address] Basic Metabolic Panel (non-fasting) (08/11/2017 6:16 AM EST) athologist Signature Glucose Lvl 139 65 - 199 [facility] mg/dL [facility] LABORATORY Estimated GFR >60 >=60 [facility] LABORATORY Comment: The reported eGFR should be multiplied b y 1.2 for patients. The MDRD is not an appropriate measure o f renal function for patients with body mass extremes or in patients with acute kidney failure. [email or web address]/DHnkdep [email or web address]/DHMCnkf Specimen Anatomical Collection Method Collection Time Receive d Time (Source) Location / / Volume Laterality Blood specimen 08/11/2017 6:16 AM 018 6:24 (specimen) EST AM EST Resulting Agency Comment Spec In Lab Yonathan Smith MD CHEMISTRY ORDERABLES Performing Organization Address City/[facility]/ZIP Code Phon e Number [address] POCT Glucose (08/11/2017 4:07 AM EST) athologist Signature POC Glucose 162 65 - 199 [place] mg/dL [facility] [...] Address City/State/ZIP Code Phon e Number [address] POCT Glucose (08/10/2017 11:59 PM EST) athologist Signature POC Glucose 166 65 - 199 [place] mg/dL [facility] [...] Organization Address City/State/[place] [address] POCT Glucose (08/10/2017 8:12 PM EST) athologist Signature POC Glucose 156 65 - 199 [facility] R[facility] mg/dL [facility] [...] Organization Address City/State/[place] [address] (ABNORMAL) POCT Glucose (08/10/2017 4:42 PM EST) P athologist Signature POC Glucose 211 (H) 65 - 199 [facility] mg/dL [facility] [...] City/State/ZIP Code Phon e Number [place] [id number] HOSPITAL LABORATORY Drive (ABNORMAL) Differential, Automated (08/10/2017 2:30 PM EST) Patholo gist Method Time Signature Neutrophils % 87.6 % [facility] LABORATORY Neutr Abs (ANC) 9.90 (H) 1.70 - [facility] 6.10 [facility] x10(3)/[facility] L LABORATORY Lymphocytes % 4.3 % [facility] LABORATORY Lymphocytes Abs 0.5 (L) 0.9 - 3.2 [facility] x10(3)/[facility] LABORATORY Monocytes % 6.0 % [facility] LABORATORY Monocyte Abs 0.7 0.3 - 0.9 [facility] x10(3)/[facility] LABORATORY Eosinophils % 1.1 % [facility] LABORATORY Eosinophils Abs 0.1 0.0 - 0.4 [facility] x10(3)/[facility] LABORATORY Basophils % 0.4 % [facility] LABORATORY Basophils Abs 0.0 0.0 - 0.1 [facility] x10(3)/[facility] LABORATORY Immature [...] Organization Address City/State/[place] [address] (ABNORMAL) Hemogram (08/10/2017 2:30 PM EST) Analysis Performed At Patho logist Time Signature WBC 11.3 (H) 4.0 - 9.5 [facility] x10(3)/[facility] LABORATORY RBC 3.13 (L) 4.58 - [facility] 5.54 [facility] x10(6)/[facility] LABORATORY Hemoglobin 8.9 (L) 13.7 - [facility] 16.5 gm/dL [facility] LABORATORY Hematocrit 28.4 (L) 40.5 - [facility] 48.5 % [facility] LABORATORY MCV 90.7 82.9 - [facility] 93.1 [facility] LABORATORY MCH 28.4 27.5 - [facility] 32.[address] [facility] LABORATORY MCHC 31.3 (L) 32.0 - [facility] 35.7 gm/dL [facility] LABORATORY Platelets 213 145 - 357 [facility] x10(3)/[facility] LABORATORY RDWSD 53.7 (H) 36.0 - [facility] RYAN 45.0 [facility] LABORATORY RDWCV 16.4 (H) 11.4 - [facility] 13.8 % [facility] LABORATORY MPV 8.9 7.6 - 12.9 [facility] LABORATORY nRBC % Auto 0.0 % [facility] LABORATORY nRBC Abs Auto 0.000 0.000 - [facility] RYAN 0.000 [facility] x10(3)/[facility] LABORATORY Specimen Anatomical Collection Method Collection Time Receive d Time (Source) Location / / Volume Laterality Blood specimen 08/10/2017 2:30 PM 018 2:48 (specimen) EST PM EST Resulting Agency Comment Spec In Lab Yonathan Smith MD HEMATOLOGY ORDERABLES Performing Organization Address City/State/ZIP Code Phon e Number [address] (ABNORMAL) POCT Glucose (08/10/2017 1:50 PM EST) athologist Signature POC Glucose 243 (H) 65 - 199 [facility]/dL [facility] [...] [facility]ZIP Code Phon e Number [address] POCT Glucose (08/10/2017 11:21 AM EST) athologist Signature POC Glucose 156 65 - 199 [facility] mg/dL [facility] [...] [facility]/[place] [address] (ABNORMAL) Differential, Automated (08/10/2017 10:28 AM EST) [facility] Method Time Signature Neutrophils % 85.3 % [facility] LABORATORY Neutr Abs (ANC) 9.43 (H) 1.70 - [facility] 6.10 [facility] x10(3)/[facility] L LABORATORY Lymphocytes % 5.5 % [facility] LABORATORY Lymphocytes Abs 0.6 (L) 0.9 - 3.2 [facility] x10(3)/[facility] LABORATORY Monocytes % 5.9 % [facility] LABORATORY Monocyte Abs 0.6 0.3 - 0.9 [facility] x10(3)/[facility] LABORATORY Eosinophils % 2.1 % [facility] LABORATORY Eosinophils Abs 0.2 0.0 - 0.4 [facility] x10(3)/[facility] LABORATORY Basophils % 0.4 % [facility] LABORATORY Basophils Abs 0.0 0.0 - 0.1 [facility] x10(3)/[facility] LABORATORY Immature [...] Organization Address City/State/[place] [address] (ABNORMAL) Hemogram (08/10/2017 10:28 AM EST) Analysis Performed At Patho logist Time Signature WBC 11.0 (H) 4.0 - 9.5 [facility] x10(3)/[facility] LABORATORY RBC 3.02 (L) 4.58 - [facility] 5.54 [facility] x10(6)/[facility] LABORATORY Hemoglobin 8.8 (L) 13.7 - [facility] 16.5 gm/dL [facility] LABORATORY Hematocrit 28.1 (L) 40.5 - [facility] 48.5 % [facility] LABORATORY MCV 93.0 82.9 - [facility] 93.1 [facility] MCH 29.1 27.5 - [place] 32.1 pg [facility] MCHC 31.3 (L) 32.0 - [place] 35.7 gm/dL [facility] Platelets 207 145 - 357 [facility] x10(3)/[facility] LABORATORY RDWSD 55.3 (H) 36.0 - [place] [facility] 45.0 [facility] RDWCV 16.4 (H) 11.4 - [facility] 13.8 % [facility] MPV 9.0 7.6 - 12.9 [facility] LABORATORY nRBC % Auto 0.0 % [facility] nRBC Abs Auto 0.000 0.000 - [facility] RYAN 0.000 [facility] x10(3)/[facility] LABORATORY Specimen Anatomical Collection Method Collection Time Receive d Time (Source) Location / / Volume Laterality Blood specimen 08/10/2017 10:28 8 (specimen) AM EST 10:35 AM EST Resulting Agency Comment Spec In Lab Yonathan Smith MD HEMATOLOGY ORDERABLES Performing Organization Address City/State/[place] [address] VS Angiogram/intervention (vascular) (08/10/2017 [...] 2.5x80 5. Completion RLE angiogram 6. L STEM MOUNTER angiogram 7. 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 - L STEM MOUNTER angriogram demonstrated: High fe moral bifurcation over the proximal half of the femoral head. L STEM MOUNTER access in the distal L STEM MOUNTER. - Closure device: Mynx Technical Procedure: ?The [...] for a 45cm 5F Destination. V18 and Olin a nd QuickCross catheters were used to [...] bifurcation. Access appeared in the distal R STEM MOUNTER. Closure and sheath removal was performed with [...] 2.5x80 5. Completion RLE angiogram 6. L STEM MOUNTER angiogram 7. 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 - L STEM MOUNTER angriogram demonstrated: High fe moral bifurcation over the proximal half of the femoral head. L STEM MOUNTER access in the distal L STEM MOUNTER. - Closure device: Mynx Technical Procedure: The [...] for a 45cm 5F Destination. V18 and Olin a nd QuickCross catheters were used to [...] bifurcation. Access appeared in the distal R STEM MOUNTER. Closure and sheath removal was performed with [...] (ABNORMAL) Differential, Automated (08/10/2017 5:50 AM EST) [facility] gist Method Time Signature Neutrophils % 80.1 % [facility] LABORATORY Neutr Abs (ANC) 9.01 (H) 1.70 - [facility] 6.10 [facility] x10(3)/[facility] LABORATORY Lymphocytes % 8.8 % [facility] LABORATORY Lymphocytes Abs 1.0 0.9 - 3.2 [facility] x10(3)/[facility] LABORATORY Monocytes % 8.3 % [facility] LABORATORY Monocyte Abs 0.9 0.3 - 0.9 [facility] x10(3)/[facility] LABORATORY Eosinophils % 2.0 % [facility] LABORATORY Eosinophils Abs 0.2 0.0 - 0.4 [facility] x10(3)/[facility] LABORATORY Basophils % 0.4 % [facility] LABORATORY Basophils Abs 0.0 0.0 - 0.1 [facility] x10(3)/[facility] LABORATORY Immature [...] Organization Address City/State/[place] [address] (ABNORMAL) Hemogram (08/10/2017 5:50 AM EST) Analysis Performed At Patho logist Time Signature WBC 11.3 (H) 4.0 - 9.5 [facility] x[facility](3[facility] LABORATORY RBC 3.15 (L) 4.58 - [facility] 5.54 [facility] x10(6)/[facility] LABORATORY Hemoglobin 8.9 (L) 13.7 - [facility] 16.5 gm/dL [facility] LABORATORY Hematocrit 29.0 (L) 40.5 - [facility] 48.5 % [facility] LABORATORY MCV 92.1 82.9 - [facility] 93.1 [facility] LABORATORY MCH 28.3 27.5 - [facility] 32.[address] [facility] LABORATORY MCHC 30.7 (L) 32.0 - [facility] 35.7 gm/dL [facility] LABORATORY Platelets 231 145 - 357 [facility] x10(3)/[facility] LABORATORY RDWSD 53.9 (H) 36.0 - [facility] 45.0 [facility] LABORATORY RDWCV 16.2 (H) 11.4 - [facility] 13.8 % [facility] LABORATORY MPV 8.7 7.6 - 12.9 [facility] LABORATORY nRBC % Auto 0.0 % [facility] LABORATORY nRBC Abs Auto 0.000 0.000 - [facility] 0.000 [facility] x10(3)/[facility] LABORATORY Specimen Anatomical Collection Method Collection Time Receive d Time (Source) Location / / Volume Laterality Blood specimen 08/10/2017 5:50 AM 018 5:59 (specimen) EST AM EST Resulting Agency Comment Spec In Lab Yonathan Smith MD HEMATOLOGY ORDERABLES Performing Organization Address City/State/[place] [address] (ABNORMAL) Basic Metabolic Panel (non-fasting) (08/10/2017 5:50 AM EST) athologist Signature Glucose Lvl 135 65 - 199 [facility] mg/dL [facility] LAB[facility] Estimated GFR >60 >=60 [facility] LABORATORY Comment: The reported eGFR should be multiplied b y 1.2 for patients. The MDRD is not an appropriate measure o f renal function for patients with body mass extremes or in patients with acute kidney failure. http://BERD/DHnkdep http://BERD/DHMCnkf Specimen Anatomical Collection Method Collection Time Receive d Time (Source) Location / / Volume Laterality Blood specimen 08/10/2017 5:50 AM 018 5:59 (specimen) EST AM EST Resulting Agency Comment Spec In Lab Yonathan Smith MD CHEMISTRY ORDERABLES Performing Organization Address City/[facility]/[place] [address] (ABNORMAL) Prothrombin Time (08/10/2017 [...] Smith MD HEMATOLOGY ORDERABLES Performing Organization Address City/[facility]/[place] [address] (ABNORMAL) POCT Glucose (08/10/2017 4:01 AM EST) athologist Signature POC Glucose 206 (H) 65 - 199 [facility] mg/dL [facility]ZIP Code [place] [address] POCT Glucose (08/10/2017 2:01 AM EST) athologist Signature POC Glucose 188 65 - 199 [place] mg/dL [facility] [...] Organization Address City/State/[place] [address] (ABNORMAL) POCT Glucose (08/09/2017 11:42 PM EST) athologist Signature POC Glucose 283 (H) 65 - 199 [facility] mg/[facility] [...] Organization Address City/State/[place] [address] POCT Glucose (08/09/2017 8:55 PM EST) athologist Signature POC Glucose 182 65 - 199 [place] mg/dL [facility] [...] Organization Address City/State/[place] [address] (ABNORMAL) APTT (08/09/2017 6:42 PM EST) athologist Signature PTT 90 (H) 25 - [address] [facility] LABORATORY Comment: The recommended therapeutic range for fu ll dose, unfractionated heparin at [facility] is 80 ? 114 seconds. [...] Smith MD HEMATOLOGY ORDERABLES Performing Organization Address City/[facility]/ZIP [facility] Phon e Number [address] POCT Glucose (08/09/2017 4:41 PM EST) athologist Signature POC Glucose 195 65 - 199 [facility] mg/[facility] [...] [facility] [address] POCT Glucose (08/09/2017 12:29 PM EST) athologist Signature POC Glucose 140 65 - 199 [facility] mg/dL [facility] [...] Organization Address City/State/[place] [address] POCT Glucose (08/09/2017 9:59 AM EST) P athologist Signature POC Glucose 135 65 - 199 [facility] mg/dL [facility] [address] Specimen to Pathology (08/09/2017 8:41 AM EST) Specimen Anatomical Collection Method Collection Time Receive d Time (Source) Location / / Volume Laterality AP Specimen 08/09/2017 8:41 AM 8 8:41 EST AM EST [address] [facility] LABORAT ORY - 08/09/2017 8:41 AM EST Specimen requisition ordered. ??Separate Pathology report to follow Yonathan Smith MD PATHOLOGY/CYTOLOGY ORDERABLE S Performing Organization Address City/[facility]/[place] [address] Surgical Pathology Report (08/09/2017 8:40 AM EST) Component Value Ref Test Analysis Performed At Patholo gist Range Method Time Signature Surgical [id number] ? Location: [facility]; [facility]; A [facility] Report The signing pathologist has [...] Flower Verified: ??08/13/2017 ?Pathologist Performed at: ??-[facility] Dept. of Pathology, [place], [place] CLINICAL INFORMATION Specimen Submitted: A - [...] Organization Address City/State/[place] [address] Anaerobic Culture (08/09/2017 8:30 AM EST) [facility] gist Method Time Signature Anaerobic No anaerobic [facility] Culture organisms [facility] LABORATORY Specimen Anatomical Collection Method Collection Time [...] Organization Address City/State/[place] [address] (ABNORMAL) Abscess/Wound Aspirate Culture (08/09/2017 8:30 AM EST) Patholo gist Method Time Signature Abscess/Wound Moderate mixed [place] Aspirate bacterial MELROSE Culture morphotypes [facility] normal LABORATORY cutaneous leroy (A) Gram Stain Rare White Blood Cells [place] Few Gram Positive Cocci in pairs MELROSE () [facility] LABORATORY Organism Gram Positive [place] Cocci in pairs MELROSE () [facility] LABORATORY [...] - GENERAL ORDER ROBSON Performing Organization Address City/[facility]/ZIP Code Phon e Number [address] POCT Glucose (08/09/2017 4:28 AM EST) P athologist Signature POC Glucose 128 65 - 199 [facility] [...] [facility]/[place] [address] ABORH Recheck Status (08/09/2017 1:10 AM EST) [facility] gist Method Time Signature ABORH Type Completed [facility] LABORATORY Specimen Anatomical Collection Method Collection Time Receive d Time (Source) Location / / Volume Laterality Blood specimen 08/09/2017 1:10 AM 018 1:35 (specimen) EST AM EST Resulting Agency Comment Spec In Lab Yonathan Smith MD BLOOD BANK ORDERABLES Performing Organization Address City/[facility]/[place] [address] Antibody screen (08/09/2017 1:10 AM EST) [facility] Method Time Signature Ab Screen Negative [facility] LABORATORY Expires at 08/12/2017 [facility] [id number] on: [facility] LABORATORY Specimen Anatomical Collection Method Collection Time Receive d Time (Source) Location / / Volume Laterality Blood specimen 08/09/2017 1:10 AM 018 1:35 (specimen) EST AM EST Resulting Agency Comment Spec In Lab Yonathan Smith MD BLOOD BANK ORDERABLES Performing Organization Address City/[facility]/[place] [address] ABO/Rh Typing (08/09/2017 1:10 [...] [facility] [address] (ABNORMAL) APTT (08/09/2017 1:10 AM EST) P athologist Signature PTT 86 (H) 25 - [address] [facility] LABORATORY Comment: The recommended therapeutic range for fu ll dose, unfractionated heparin at [facility] is 80 ? 114 seconds. [...] Organization Address City/State/[place] [address] (ABNORMAL) Differential, Automated (08/09/2017 1:10 AM EST) [facility] gist Method Time Signature Neutrophils % 76.2 % [facility] LABORATORY Neutr Abs (ANC) 8.59 (H) 1.70 - [facility] 6.10 [facility] x10(3)/[facility] LABORATORY Lymphocytes % 11.0 % [facility] LABORATORY Lymphocytes Abs 1.2 0.9 - 3.2 [facility] x10(3)/[facility] LABORATORY Monocytes % 8.4 % [facility] LABORATORY Monocyte Abs 1.0 (H) 0.3 - 0.9 [facility] x10(3)/[facility] LABORATORY Eosinophils % 3.5 % [facility] Eosinophils Abs 0.4 0.0 - 0.4 [facility] x10(3)/[facility] LABORATORY Basophils % 0.5 % [facility] Basophils Abs 0.1 0.0 - 0.1 [facility] x10(3)/[facility] LABORATORY Immature [...] Organization Address City/State/[place] [address] (ABNORMAL) Hemogram (08/09/2017 1:10 AM EST) Analysis Performed At Patho logist Time Signature WBC 11.3 (H) 4.0 - 9.5 [facility](3[facility] LABORATORY RBC 3.47 (L) 4.58 - [facility] 5.54 [facility] x10(6)/[facility] LABORATORY Hemoglobin 10.0 (L) 13.7 - [facility] 16.5 gm/dL [facility] Hematocrit 31.9 (L) 40.5 - [facility] 48.5 % [facility]ORY MCV 91.9 82.9 - [facility] 93.1 [facility] LABORATORY MCH 28.8 27.5 - [facility] 32.[address] [facility] MCHC 31.3 (L) 32.0 - [facility] 35.7 gm/dL [facility]ORY Platelets 234 145 - 357 [facility] x10(3)/[facility] LABORATORY RDWSD 54.0 (H) 36.0 - [facility] 45.0 [facility] LABORATORY RDWCV 16.2 (H) 11.4 - [facility] R[facility]AN 13.8 % [facility]ATORY MPV 8.7 7.6 - 12.9 [facility] LABORATORY nRBC % Auto 0.0 % [facility] nRBC Abs Auto 0.000 0.000 - [facility] R[facility]AN 0.000 [facility] x10(3)/[facility] LABORATORY Specimen Anatomical Collection Method Collection Time Receive d Time (Source) Location / / Volume Laterality Blood specimen 08/09/2017 1:10 AM 018 1:19 (specimen) EST AM EST Resulting Agency Comment Spec In Lab Yonathan Smith MD HEMATOLOGY ORDERABLES Performing Organization Address City/State/[place] [address] (ABNORMAL) Prothrombin Time (08/09/2017 [...] City/State/ZIP Code Phon e Number [place] [id number] HOSPITAL LAB[address]ATORY [address] (ABNORMAL) Basic Metabolic Panel (non-fasting) (08/09/2017 1:10 AM EST) athologist Signature Glucose Lvl 108 65 - 199 [facility] mg/dL [facility] [...] or in patients with acute kidney failure. [email or web address] Specimen Anatomical Collection Method Collection Time Receive d Time (Source) Location / / Volume Laterality Blood specimen 08/09/2017 1:10 AM 018 1:19 (specimen) EST AM EST Resulting Agency Comment Spec In Lab Yonathan Smith MD CHEMISTRY ORDERABLES Performing Organization Address City/[facility]/ZIP Code Phon e Number [address] POCT Glucose (08/09/2017 12:05 AM EST) athologist Signature POC Glucose 128 65 - 199 [facility] mg/dL [facility] [...] [facility] [address] (ABNORMAL) POCT Glucose (08/08/2017 7:36 PM EST) athologist Signature POC Glucose 215 (H) 65 - 199 [facility] mg/dL [facility] [...] [facility] [address] (ABNORMAL) POCT Glucose (08/08/2017 6:23 PM EST) athologist Signature POC Glucose 216 (H) 65 - 199 [facility] mg/dL [facility] [...] Performing Organization Address [facility]/[place] [address] (ABNORMAL) APTT (08/08/2017 6:00 PM EST) athologist Signature PTT 97 (H) 25 - [address] [facility] Comment: The recommended therapeutic range for fu ll dose, unfractionated heparin at [facility] is 80 ? 114 seconds. [...] Smith MD HEMATOLOGY ORDERABLES Performing Organization Address City/[facility]/[place] [address] POCT Glucose (08/08/2017 4:42 PM EST) athologist Signature POC Glucose 78 65 - 199 [facility] mg/dL [facility] [...] Organization Address City/State/[place] [address] (ABNORMAL) POCT Glucose (08/08/2017 4:01 PM EST) P athologist Signature POC Glucose 58 (L) 65 - 199 [facility] mg/dL [facility] [...] Organization Address City/State/[place] [address] POCT Glucose (08/08/2017 11:51 AM EST) P athologist Signature POC Glucose 90 65 - 199 [facility] mg/dL [facility] [...] Address City/State/ZIP Code Phon e Number [address] (ABNORMAL) APTT (08/08/2017 10:27 AM EST) P athologist Signature PTT 64 (H) 25 - [address] [facility] Comment: The recommended therapeutic range for fu ll dose, unfractionated heparin at [facility] is 80 ? 114 seconds. [...] Smith MD HEMATOLOGY ORDERABLES Performing Organization Address City/[facility]/ZIP Code Phon e Number [address] POCT Glucose (08/08/2017 8:02 AM EST) athologist Signature POC Glucose 178 65 - 199 [facility] mg/dL [facility] [...] [facility] [address] (ABNORMAL) APTT (08/08/2017 4:51 AM EST) athologist Signature PTT >160 25 - 35 [facility] (Critical) sec [facility] Comment: Called by: HOWARD, Read back by: Melba Jaramillo, Date/Time:08/08/17 05:43. The recommended therapeutic range for fu ll dose, unfractionated heparin at [facility] is 80 ? 114 seconds. [...] Address City/State/ZIP [place] [address] (ABNORMAL) Differential, Automated (08/08/2017 4:51 AM EST) [facility] Method Time Signature Neutrophils % 77.9 % [facility] Neutr Abs (ANC) 8.17 (H) 1.70 - [facility] 6.10 [facility] x10(3)/[facility] LABORATORY Lymphocytes % 10.3 % [facility] Lymphocytes Abs 1.1 0.9 - 3.2 [facility] x10(3)/[facility] LABORATORY Monocytes % 7.0 % [facility] Monocyte Abs 0.7 0.3 - 0.9 [facility] x10(3)/[facility] LABORATORY Eosinophils % 3.6 % [facility] Eosinophils Abs 0.4 0.0 - 0.4 [facility] x10(3)/[facility] LABORATORY Basophils % 0.5 % [facility] Basophils Abs 0.0 0.0 - 0.1 [facility] x10(3)/[facility] LABORATORY Immature [...] Organization Address City/State/[place] [address] (ABNORMAL) Hemogram (08/08/2017 4:51 AM EST) Analysis Performed At Patho logist Time Signature WBC 10.5 (H) 4.0 - 9.5 [facility] x[facility](3[facility] LABORATORY RBC 3.27 (L) 4.58 - [place] 5.54 [facility] x10(6)/[facility] LABORATORY Hemoglobin 9.3 (L) 13.7 - [facility] 16.5 gm/dL [facility]ORY Hematocrit 30.3 (L) 40.5 - [facility] 48.5 % [facility]ATORY MCV 92.7 82.9 - [facility] 93.1 [facility] LABORATORY MCH 28.4 27.5 - [place] [facility] 32.[address] [facility] LAB[facility]ATORY MCHC 30.7 (L) 32.0 - [facility] 35.7 gm/dL [facility] Platelets 252 145 - 357 [facility] x10(3)/[facility] LABORATORY RDWSD 54.6 (H) 36.0 - [facility] 45.0 [facility] LABORATORY RDWCV 16.2 (H) 11.4 - [facility] 13.8 % [facility] LABORATORY MPV 9.1 7.6 - 12.9 [facility] LABORATORY nRBC % Auto 0.0 % [facility] nRBC Abs Auto 0.000 0.000 - [facility] 0.000 [facility] x10(3)/[facility] LABORATORY Specimen Anatomical Collection Method Collection Time Receive d Time (Source) Location / / Volume Laterality Blood specimen 08/08/2017 4:51 AM 018 5:14 (specimen) EST AM EST Resulting Agency Comment Spec In Lab Yonathan Smith MD HEMATOLOGY ORDERABLES Performing Organization Address City/State/ZIP Code Phon e Number [place] [phone] HOSPITAL LABORATORY Drive (ABNORMAL) Prothrombin Time (08/08/2017 [...] Organization Address City/State/[place] [address] (ABNORMAL) Basic Metabolic Panel (non-fasting) (08/08/2017 4:51 AM EST) athologist Signature Glucose Lvl 229 (H) 65 - 199 [facility] mg/dL [facility] [...] or in patients with acute kidney failure. [email or web address] Specimen Anatomical Collection Method Collection Time Receive d Time (Source) Location / / Volume Laterality Blood specimen 08/08/2017 4:51 AM 018 5:14 (specimen) EST AM EST Resulting Agency Comment Spec In Lab Yonathan Smith MD CHEMISTRY ORDERABLES Performing Organization Address City/[facility] Phon e Number [address] POCT Glucose (08/08/2017 4:20 AM EST) athologist Signature POC Glucose 193 65 - 199 [facility] mg/[facility] [...] [facility]/ZIP Code Phon e Number [address] POCT Glucose (08/07/2017 11:11 PM EST) P athologist Signature POC Glucose 124 65 - 199 [facility] mg/dL [facility] [...] [facility]/[place] [address] (ABNORMAL) APTT (08/07/2017 10:18 PM EST) athologist Signature PTT 114 (H) 25 - [address] [facility] Comment: The recommended therapeutic range for fu ll dose, unfractionated heparin at [facility] is 80 ? 114 seconds. [...] Performing Organization Address [facility]/[place] [address] POCT Glucose (08/07/2017 8:10 PM EST) athologist Signature POC Glucose 140 65 - 199 [facility] mg[facility] [...] [facility]/ZIP Code Phon e Number [address] POCT Glucose (08/07/2017 5:27 PM EST) athologist Signature POC Glucose 187 65 - 199 [facility] mg/dL [facility] [...] [facility]/ZIP Code Phon e Number [address] POCT Glucose (08/07/2017 3:29 PM EST) athologist Signature POC Glucose 86 65 - 199 [facility] mg/dL [facility] [...] Performing Organization Address [facility] [place] [address] (ABNORMAL) APTT (08/07/2017 2:50 PM EST) athologist Signature PTT 60 (H) 25 - [address] [facility] Comment: The recommended therapeutic range for fu ll dose, unfractionated heparin at [facility] is 80 ? 114 seconds. [...] Smith MD HEMATOLOGY ORDERABLES Performing Organization Address City/[facility]/ZIP [facility] [place] [address] (ABNORMAL) POCT Glucose (08/07/2017 2:23 PM EST) athologist Signature POC Glucose 55 (L) 65 - 199 [facility] mg/[facility] [...] Address City/State/ZIP Code Phon e Number [address] POCT Glucose (08/07/2017 12:08 PM EST) P athologist Signature POC Glucose 77 65 - 199 [facility] mg/dL [facility] [...] Organization Address City/State/[place] [address] (ABNORMAL) Differential, Automated (08/07/2017 7:30 AM EST) Patholo gist Method Time Signature Neutrophils % 73.8 % [facility] Neutr Abs (ANC) 7.17 (H) 1.70 - [facility] 6.10 [facility] x10(3)/[facility] LABORATORY Lymphocytes % 12.2 % [facility] Lymphocytes Abs 1.2 0.9 - 3.2 [facility] x10(3)/[facility] LABORATORY Monocytes % 9.0 % [facility] Monocyte Abs 0.9 0.3 - 0.9 [facility] x10(3)/[facility] LABORATORY Eosinophils % 3.9 % [facility] Eosinophils Abs 0.4 0.0 - 0.4 [facility] x10(3)/[facility] LABORATORY Basophils % 0.6 % [facility] Basophils Abs 0.1 0.0 - 0.1 [facility] x10(3)/[facility] LABORATORY Immature [...] Organization Address City/State/[place] [address] (ABNORMAL) Hemogram (08/07/2017 7:30 AM EST) Analysis Performed At Patho logist Time Signature WBC 9.7 (H) 4.0 - 9.5 [facility] x10(3)/[facility] LABORATORY RBC 3.54 (L) 4.58 - [facility] 5.54 [facility] x10(6)/[facility] LABORATORY Hemoglobin 9.9 (L) 13.7 - [facility] 16.5 gm/dL [facility] Hematocrit 32.3 (L) 40.5 - [facility] 48.5 % [facility] LABOR[facility]ORY MCV 91.2 82.9 - [facility] 93.1 [facility] LABORATORY MCH 28.0 27.5 - [facility] 32.[address] [facility] LAB[facility]ATORY MCHC 30.7 (L) 32.0 - [facility] 35.7 gm/dL [facility] LAB[facility]ORY Platelets 312 145 - 357 [facility] x10(3)/[facility] LABORATORY RDWSD 53.2 (H) 36.0 - [facility] 45.0 [facility] RDWCV 16.0 (H) 11.4 - [facility] 13.8 % [facility] LABORATORY MPV 8.9 7.6 - 12.9 [facility] LABORATORY nRBC % Auto 0.0 % [facility] nRBC Abs Auto 0.000 0.000 - [facility] 0.000 [facility] x10(3)/[facility] LABORATORY Specimen Anatomical Collection Method Collection Time Receive d Time (Source) Location / / Volume Laterality Blood specimen 08/07/2017 7:30 AM 018 7:45 (specimen) EST AM EST Resulting Agency Comment Spec In Lab Yonathan Smith MD HEMATOLOGY ORDERABLES Performing Organization Address City/State/[place] [address] (ABNORMAL) Basic Metabolic Panel (non-fasting) (08/07/2017 7:30 AM EST) P athologist Signature Glucose Lvl 80 65 - 199 [facility] mg/dL [facility] [...] or in patients with acute kidney failure. [email or web address] Specimen Anatomical Collection Method Collection Time Receive d Time (Source) Location / / Volume Laterality Blood specimen 08/07/2017 7:30 AM 018 7:45 (specimen) EST AM EST Resulting Agency Comment Spec In Lab Yonathan Smith MD CHEMISTRY ORDERABLES Performing Organization Address City/[facility]/ZIP Code Phon e Number [address] POCT Glucose (08/07/2017 7:27 AM EST) athologist Signature POC Glucose 81 65 - 199 [facility] mg/dL [facility] [...] [facility]ZIP Code Phon e Number [address] APTT (08/07/2017 7:04 AM EST) athologist Signature PTT 34 25 - [address] [facility] Comment: The recommended therapeutic range for fu ll dose, unfractionated heparin at [facility] is 80 ? 114 seconds. [...] Smith MD HEMATOLOGY ORDERABLES Performing Organization Address City/[facility]/ZIP Code Phon e Number [address] (ABNORMAL) Prothrombin Time (08/07/2017 [...] Address City/State/ZIP Code Phon e Number [address] POCT Glucose (08/07/2017 4:03 AM EST) athologist Signature POC Glucose 93 65 - 199 [facility] mg/[facility] [...] Address City/State/ZIP Code Phon e Number [address] POCT Glucose (08/07/2017 12:04 AM EST) athologist Signature POC Glucose 107 65 - 199 [facility] mg/[facility] [...] Address City/State/ZIP Code Phon e Number [address] POCT Glucose (08/06/2017 7:56 PM EST) P athologist Signature POC Glucose 178 65 - 199 [facility] mg/dL [facility] [...] Address City/State/ZIP Code Phon e Number [address] TcPO2 (08/06/2017 2:32 PM EST) Component Value Ref Test Analysis Performed At Patholo gist Range Method Time Signature VB Text Department: Vascular Surgery Lab VASCUBASE Report Patient: [id number] (GREGORY HOANG) CPT: 0432810 ICD10: I99.8 Referring Physician: YONATHAN SMITH ?? [...] Order parameters not met)0828 (Given - Provider: Cihquis Mcgrath RN - Comment: BG 158) 0000 [...] tablet 175 mcg 0501 (Given - Provider: eHnrique Marks, RN) 0502 (Given - Provider: Henrique [...]
Routine documented in this encounter Care Teams Tetryl Dissolver Operator Relationship Specialty Start Date End Date Lovely Vicente MD PCP - General 04/16/[address] [place] [address] documented as of this encounter
--- OUTSIDE RECORDS SUMMARY | 2022-05-20 09:36 | XMS_ITS | Encounter Summary ---
:1945 [place] [address] Care Team Providers Name Role Phone Lovely Vicente MD Primary Care Provider Reason for Visit Auth/Cert Specialty Diagnoses / Procedures Referred By Contact Refer red To Contact Diagnoses Critical lower limb ischemia CELLULITIS RT FOOT Procedures EMERGENCY Referral ID Status Reason Start Date Expiration Date Visits Requ ested Visits Authorized [id number] 1 1 Encounter Details Date Type Department Care Team Description 08/09/2017 Anesthesia Event Main Operating Room Daniele Lizama MD [facility] [place] [address] [facility] Rob Jones MD [facility] [place] [address] [place] [address] Anesthesia Record Procedure Summary Procedure Name [...] Knowles, Dory arm), right; VAMSI Rios, RN ybrr-pas-iknlqu catheter system; 20 gauge; 08/16/17; 1047 PIV 07/29/17; 1413; median 07/29/17 1413 by 08/16/17 1047 by cubital vein (antecubital Magdalene Hickey Williams, Dory fossa), left; VAMSI Wyatt, RN mgpd-scs-gzegqq catheter system; 20 gauge; 08/16/17; 1047 PIV 08/06/17; 1742; cephalic 08/06/17 1742 by 0920 by vein (lateral side of Taylor Laureano Danah y, Caitlyn C, arm), right; VAMSI BONNER yiew-dyy-kvwgjq catheter system; 22 gauge, 1 in length; Eliseo LAUREANO RN VAS; distraction, intradermal injection, tolerated well, appears comfortable; 0; 08/16/17; 0920 Wound 08/07/17; 1335; knee; 08/07/17 1335 by 08/16/17 1047 by laceration; wound occured Barbara Albert iams, Dory PUBLIC HEALTH TRAINING ASSISTANT; 08/16/17; 1047 VAMSI Alonzo, RN PIV 08/07/17; 1734; cephalic 08/07/17 1734 by 1047 by vein (lateral side of Kendrick, Carlos W, Willia ms, Dory arm), left; MARCIE Wyatt RN ksiw-ryv-hcbkeq catheter system; 22 gauge; distraction, intradermal injection, [...] Santillan MD - 08/09/2017 9:01 AM EST [facility] Department of Anesthesiology Post-procedure Note Patient: Don Fatima Procedure Summary Date Anesthesia Start Anesthesia Stop Room / Location 08/09/17 0802 0901 [facility] OR 14 / [facility] MAIN OR Procedure Diagnosis Surgeon Responsible Provider AMPUTATION, 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 Nerve [...] [facility] ??? PRO CABG, ARTERIAL, SINGLE N/A 07/07/2017 @CABG, USING ARTERIAL GRAFT;SINGLE ARTERIAL GRAFT (WRVU 33.75) performed by Yuan Retana MD at [facility] MAIN OR ??? PRO CABG, ARTERY-VEIN, TWO N/A 07/07/2017 @CABG, TWO VENOUS GRAFTS & ARTERIAL GRAFT (WRVU 7.93) performed by Yuan Retana MD at [facility] MAIN OR ??? PRO COLONOSCOPY, REMV LESN, SNARE 01/16/2014 COLONOSCOPY, POLYPECTOMY, REMOVAL LESION BY SNARE performed by Nohemi Jaimes MD at [facility] ENDOSCOPY ??? PRO ENDOSCOPY W/VIDEO-ASST VEIN HARVEST, CABG Right 07/07/2017 ENDOSCOPIC HARVEST VEIN(S) FOR CABG (WRVU 0.31) performed by Yuan Retana MD at [facility] MAIN OR ??? PRO THYROIDECTOMY 03/28/2013 THYROIDECTOMY, TOTAL OR COMPLETE performed by Manny Mcknight MD at [facility] MAIN OR Social History Substance Use Topics [...] acute inferior infarct AVELINO 07/08/17: 1. Intraoperative AVELNIO performed at the request [...] adequate IV access. Brody Santillan MD PGY-2, Sisal Operator Pager #[phone] Anesthesiology Staff (Dewhirst): Pre-op summary note as [...] Zulma Dolan MD [facility] [address] [place] [address] (Wo rk) 05/28/2022 Laboratory Appointment Lab 05/28/2022 Office Visit Cardiology Zulma Dolan MD [facility] [place] [address] Liz Poole PA [facility] [place] [address] 06/10/2022 Office Visit Dermatology Laura Scherer MD [facility] [address] [place], [place] [address] (Wo rk) documented as of [...] Length: 10 cm Gauge: 21 Needle Type: R-hokpy-znnpn Medication injection made in crementally with aspirations. [...] Procedure) documented in this encounter Care Teams Sleeve Machine Tender Relationship Specialty Start Date End Date Lovely Vicente MD PCP - General 04/16/[address] [place] [address] documented as of this encounter
--- OUTSIDE RECORDS SUMMARY | 2022-05-20 09:37 | XMS_ITS | Encounter Summary ---
:1945 Author Organization [facility] Address [facility] [place] [address] Care Team Providers Name Role Phone Lovely Vicente MD Primary Care Provider Reason for Visit Auth/Cert Specialty Diagnoses / Procedures Referred By Contact Refer red To Contact Diagnoses Critical lower limb ischemia CELLULITIS RT FOOT Procedures EMERGENCY Referral ID Status Reason Start Date Expiration Date Visits Requ ested Visits Authorized [id number] 1 1 Encounter Details Date Type Department Care Team Description 08/04/2017 Laboratory Lab 3L Barbara Cardiomyopathy, unspecified type; Appointment [facility] Systolic congestive heart failure, unspecified congestive heart failure chronicity; Hospital Coronary artery rupture; [facility] Ischemic cardiomyopathy; Drive Atherosclerosis of [place] ronary artery, angina presence unspecified, unspecified whether [place] or transplanted heart; [place], [place] Essential hyper tension, malignant; [phone] 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, unspecified adjunct faculty for medical terminology insulin use status [phone] Social History Tobacco Use Types Packs/Day Years [...] Dolan MD [facility] [address] [place] [address] (Wo rk) 05/28/2022 Laboratory Appointment Lab 05/28/2022 Office Visit Cardiology Zulma Dolan MD [facility] [place] [address] Liz Poole PA [facility] [place] [address] 06/10/2022 Office Visit Dermatology Laura Scherer MD [facility] ER [address]MAT [place], [place] [address] (Wo rk) documented as of this encounter Procedures Procedure Name Priority Date/Time Associated Diagnosis Comme nts HEMOGRAM Routine 08/04/2017 12:55 Essential Results for this PM EST hypertension, procedure are in malignant the results section. PROTHROMBIN TIME Routine 08/04/2017 12:55 Coronary artery Resu lts for this PM EST rupture procedure are in Ischemic the results cardiomyopathy section. Atherosclerosis of [place] coronary artery, angina presence unspecified, unspecified whether [place] or transplanted heart URIC ACID Routine 08/04/2017 [...] Signature Uric Acid 7.1 3.5 - 8.5 [facility] mg/dL [facility] Specimen Anatomical Collection Method Collection Time Receive d Time (Source) Location / / Volume Laterality Blood specimen 08/04/2017 12:55 8 1:01 (specimen) PM EST PM EST Resulting Agency Comment Spec In Lab Lovely Vicente MD CHEMISTRY ORDERABLES Performing Organization Address City/[facility]/[place] [address] (ABNORMAL) Hemogram (08/04/2017 12:55 PM EST) Analysis Performed At Patho logist Time Signature WBC 15.8 (H) 4.0 - 9.5 [facility] x10(3)/[facility] LABORATORY RBC 3.48 (L) 4.58 - [facility] RYNA 5.54 [facility] x10(6)/[facility] LABORATORY Hemoglobin 9.9 (L) 13.7 - [facility] 16.5 gm/dL [facility] Hematocrit 31.4 (L) 40.5 - [facility] 48.5 % [facility] MCV 90.2 82.9 - [facility] 93.1 [facility] LABORATORY MCH 28.4 27.5 - [facility] 32.1 pg [facility] MCHC 31.5 (L) 32.0 - [facility] 35.7 gm/dL [facility] Platelets 310 145 - 357 [facility] x10(3)/[facility] LABORATORY RDWSD 51.8 (H) 36.0 - [facility] 45.0 [facility] LABORATORY RDWCV 15.8 (H) 11.4 - [facility] 13.8 % [facility] MPV 8.9 7.6 - 12.9 [facility] LABORATORY nRBC % Auto 0.0 % [facility] LABORATORY nRBC Abs Auto 0.000 0.000 - [facility] 0.000 [facility] x10(3)/[facility] LABORATORY Specimen Anatomical Collection Method Collection Time Receive d Time (Source) Location / / Volume Laterality Blood specimen 08/04/2017 12:55 8 1:01 (specimen) PM EST PM EST Resulting Agency Comment Spec In Lab Lovely Vicente MD HEMATOLOGY ORDERABLES Performing Organization Address City/State/[place] [address] (ABNORMAL) Comprehensive metabolic panel (non-fasting) (08/04/2017 12:55 PM EST) athologist Signature Glucose Lvl 208 (H) 65 - 199 [facility] mg/dL [facility] Comment: Diabetes: >=200 mg/dL plus symp toms BUN 32 (H) 10 - 20 mg/dL [facility] LABORATORY Creatinine 1.58 (H) 0.80 - 1.50 mg/dL [facility] Sodium 136 135 - 145 mmol/L [facility] LABOR[facility]ORY Potassium 5.5 (H) 3.5 - 5.0 mmol/L [facility] [...] 10.5 mg/dL [facility] Total Protein 6.9 6.1 [...] or in patients with acute kidney failure. [email or web address] Specimen Anatomical Collection Method Collection Time Receive d Time (Source) Location / / Volume Laterality Blood specimen 08/04/2017 12:55 8 1:01 (specimen) PM EST PM EST Resulting Agency Comment Spec In Lab Lovely Vicente MD CHEMISTRY ORDERABLES Performing Organization Address City/State/ZIP Code Phon e Number [place] [phone] HOSPITAL LAB[address]ORY Drive (ABNORMAL) Hemoglobin A1c (08/04/2017 [...] with hemoglobinopathies. Additional resources are available on [facility] website. Macario HAMMOND, Ruthann J, Deysi R, et al. ??Tr anslating the A1C assay into estimated average glucose values. ??Diabetes Care 2008:31(8):7129-0943. Specimen Anatomical Collection Method Collection Time Receive d Time (Source) Location / / Volume Laterality Blood specimen 08/04/2017 12:55 8 1:01 (specimen) PM EST PM EST Resulting Agency Comment Spec In Lab Lovely Vicente MD CHEMISTRY ORDERABLES Performing Organization Address [facility] [place] [address] (ABNORMAL) Prothrombin Time (08/04/2017 [...] Vicente MD HEMATOLOGY ORDERABLES Performing Organization Address [facility] [place] [address] (ABNORMAL) pro-Brain Natriuretic Peptide (08/04/2017 12:55 PM EST) P athologist Signature ProBNP 3,133 (H) <=125 [facility] pg/mL [facility] Specimen Anatomical Collection Method Collection Time Receive d Time (Source) Location / / Volume Laterality Blood specimen 08/04/2017 12:55 8 1:01 (specimen) PM EST PM EST Resulting Agency Comment Spec In Lab Danette Maxwell APRN CHEMISTRY ORDERABLES Performing Organization Address City/State/[place] [address] documented in this encounter Visit Diagnoses Diagnosis Cardiomyopathy, unspecified type Systolic congestive heart failure, unspe cified congestive heart failure chronicity Coronary artery rupture Acute myocardial infarction, unspecified site, episode of care unspecified Ischemic cardiomyopathy Other specified forms of chronic ischemi c heart disease Atherosclerosis of [place] coronary arter y, angina presence unspecified, unspecified whether [place] or transplanted heart Essential hypertension, malignant Diabetes mellitus due to underlying cond ition with diabetic nephropathy, unspecified adjunct faculty for medical terminology insulin use status documented in this encounter Care Teams Vineyard Tender Relationship Specialty Start Date End Date Lovely Vicente MD PCP - General 04/16/[address] [place] [address] documented as of this encounter
--- OUTSIDE RECORDS SUMMARY | 2022-05-20 09:37 | XMS_ITS | Encounter Summary ---
:1945 Author Organization [facility] [place] [address] Care Team Providers Name Role Phone Lovely Vicente MD Primary Care Provider Encounter Details Date Type Department Care Team Description 07/29/2017 Transcribe Orders Laboratory Lovely Vicente MD [address] [address] [place] [address] [phone] (Wo rk) Social History Tobacco Use Types [...] Dolan MD [facility] er [address] [place] [address] (Wo rk) 05/28/2022 Laboratory Appointment Lab 05/28/2022 Office Visit Cardiology Zulma Dolan MD [facility] [place] [address] Liz Poole PA [facility] [place] [address] 06/10/2022 Office Visit Dermatology Laura Scherer MD [facility] ER DR TE[address]MAT [place], [place] [address] (Wo rk) documented as of this encounter Visit Diagnoses Not on filedocumented in this encounter Care Teams Horticulture/Floriculture Teacher Relationship Specialty Start Date End Date Lovely Vicente MD PCP - General 04/16/[address] [place] [address] documented as of this encounter
--- OUTSIDE RECORDS SUMMARY | 2022-05-20 09:37 | XMS_ITS | Encounter Summary ---
:1945 Author Organization [facility] [place] [address] Care Team Providers Name Role Phone Lovely Vicente MD Primary Care Provider Reason for Visit Reason Comments Deep Vein Thrombosis Auth/Cert Specialty Diagnoses / Procedures Referred By Contact Refer red To Contact Diagnoses Critical lower limb ischemia CELLULITIS RT FOOT Procedures EMERGENCY Referral ID Status Reason Start Date Expiration Date Visits Requ ested Visits Authorized [id number] 1 1 Encounter Details Date Type Department Care Team Description 08/04/2017 Office Visit Vascular Surgery at [facility] itical lower limb [facility] ischemia [facility] [address] [place] VASCULAR SURGERY [address] [place] [address] [phone] Social History Tobacco Use Types Packs/Day Years [...] was discharged on Coumadin. ??He presented to [facility] on 07/20 with mottled toes on the [...] Appointment Cardiology Zulma Dolan MD [facility] [place] [address] (Wo rk) 05/28/2022 Laboratory Appointment Lab 05/28/2022 Office Visit Cardiology Zulma Dolan MD [facility] [place] [address] [facility] [place] [address] 06/10/2022 Office Visit Dermatology Laura Scherer MD [facility] ER DR TE[address] GR[address]DERMAT [place], [place] [address] (Wo rk) documented as of this encounter Visit Diagnoses Diagnosis Critical lower limb ischemia Unspecified circulatory system disorder documented in this encounter Care Teams Thread Twister Relationship Specialty Start Date End Date Lovely Vicente MD PCP - General 04/16/15 [facility] [address] [place], [place] [address] documented as of this encounter
--- OUTSIDE RECORDS SUMMARY | 2022-05-20 09:37 | XMS_ITS | Encounter Summary ---
:1945 Author Organization [facility] [place] [address] Care Team Providers Name Role Phone Lovely Vicente MD Primary Care Provider Reason for Visit Reason Comments Pain Management Ankle Pain Toe Pain Encounter Details Date Type Department Care Team Description 07/30/2017 Office Visit Pain Management at Barbra Soares, Per ipheral neuropathy Juana Diaz REPAIR SERVICE CLERK due to ischemia Counts Include [address] [facility] [address] [place], [place], [place] [phone] Social History Tobacco Use Types Packs/Day Years [...] APRN - 07/30/2017 1:45 PM EST [facility] [place] [address] Phone: PAIN MANAGEMENT NEW PATIENT / CONSULTATION NOTE DATE OF VISIT 07/30/2017 Patient Don Fatima 1945 REFERRING PROVIDER Lovely Vicente MD [address] [place] [address] PRIMARY CARE PROVIDER Lovely Vicente MD CHIEF [...] much relief PAST THERAPIES: Nothing MEDICATIONS The [place] Prescription Monitoring Program was checked [...] 33.75) performed by Yuan Retana MD at [facility] [...] 0.31) performed by Yuan Retana MD at [facility] [...] referral, Lovely Vicente MD [address] [place] [address]. Barbra Soares, MSN, MANAGER ACTUARIAL-BC, REPAIR SERVICE CLERK Nurse Practitioner Pain Management Center documented in this encounter Plan of Treatment Upcoming Encounters Date Type Specialty Care Team Description 05/28/2022 Appointment Cardiology Zulma Dolan MD [facility] [place], [place] [address] (Wo rk) 05/28/2022 Laboratory Appointment Lab 05/28/2022 Office Visit Cardiology Zulma Dolan MD [facility] [place] [address] Liz Poole PA [facility] [place] [address] 06/10/2022 Office Visit Dermatology Laura Scherer MD [facility] [address] [place], [place] [address] (Wo rk) documented as of this encounter Visit Diagnoses Diagnosis 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
--- OUTSIDE RECORDS SUMMARY | 2022-05-20 09:37 | XMS_ITS | Encounter Summary ---
:1945 Author Organization [facility] [place] [address] Care Team Providers Name Role Phone Lovely Vicente MD Primary Care Provider Reason for Visit Reason Comments Foot Ulcer WOUND CHECK Auth/Cert Specialty Diagnoses / Procedures Referred By Contact Refer red To Contact Diagnoses Critical lower limb ischemia CELLULITIS RT FOOT Procedures EMERGENCY Referral ID Status Reason Start Date Expiration Date Visits Requ ested Visits Authorized [id number] 1 1 Encounter Details Date Type Department Care Team Description 08/06/2017 [facility] [address] [place] VASCULAR SURGERY [address] [place] [address] [phone] Social History Tobacco Use Types Packs/Day Years [...] MD - 08/06/2017 1:00 PM EST [facility] staff: 1. RIGHT leg CLI [...] [facility] [address] [place], [place] [address] (Wo ) 05/28/2022 Laboratory Appointment Lab 05/28/2022 Office Visit Cardiology Zulma Dolan MD [facility] [place] [address] Liz Poole PA [facility] [place] [address] 06/10/2022 Office Visit Dermatology Laura Scherer MD [facility] ER DR [address]DERMAT [place], [place] [address] (Wo rk) documented as of this encounter Visit Diagnoses Diagnosis Critical lower limb ischemia Unspecified circulatory system disorder documented in this encounter Care Teams Ground Support Equipment Mechanic Relationship Specialty Start Date End Date Lovely Vicente MD PCP - General 04/16/[address] [place], [place] [address] documented as of this encounter
--- OUTSIDE RECORDS SUMMARY | 2022-05-20 09:37 | XMS_ITS | Encounter Summary ---
:1945 Author Organization [facility] [address] Care Team Providers Name Role Phone Lovely Vicente MD Primary Care Provider Encounter Details Date Type Department Care Team Description 08/03/2017 Telephone Pain Management at [place], [place] [address] Social History Tobacco Use Types Packs/Day [...] Management Center Preauthorization Request Patient: Don Fatima [id number] Fax received from [facility] requesting we obtain prior authorization for Lidocaine Patches prescribed by Barbra Soares APRN. RX insurance plan: [facility] [employer] insurance telephone: [phone] Patient ?? Diagnosis: right foot pain secondary to PVD and ischemia ?? Previous medications attempted: Tylenol, Tramadol, Dilaudid Authorization/Reference number: [id number], PBP Code 801 _x_ denied, provider and patient informed _x_ appeal initiated by provider, patient informed Angeles Rodrigez, RN documented in this encounter Plan of Treatment Upcoming Encounters Date Type Specialty Care Team Description 05/28/2022 Appointment Cardiology Zulma Dolan MD [facility] [place], [place] [address] (Wo rk) 05/28/2022 Laboratory Appointment Lab 05/28/2022 Office Visit Cardiology Zulma Dolan MD [facility] [place] [address] [facility] [place] [address] 06/10/2022 Office Visit Dermatology Laura Scherer MD [facility] DR [address] [place], [place] [address] (Wo rk) documented as of this encounter Visit Diagnoses Not on filedocumented in this encounter Care Teams Plastics Design Engineer Relationship Specialty Start Date End Date Lovely Vicente MD PCP - General 04/16/[address] [place] [address] documented as of this encounter
--- OUTSIDE RECORDS SUMMARY | 2022-05-20 09:37 | XMS_ITS | Encounter Summary ---
:1945 Author Organization [facility] [place] [address] Care Team Providers Name Role Phone Lovely Vicente MD Primary Care Provider Reason for Visit Auth/Cert Specialty Diagnoses / Procedures Referred By Contact Refer red To Contact Diagnoses Critical lower limb ischemia CELLULITIS RT FOOT Procedures EMERGENCY Referral ID Status Reason Start Date Expiration Date Visits Requ ested Visits Authorized [id number] 1 1 Encounter Details Date Type Department Care Team Description 08/04/2017 [facility] Barbara [place] thrombosis of [facility] [place] [phone] Social History Tobacco Use Types Packs/Day Years [...] Zulma Dolan MD [facility] [place], [place] [address] (Wo rk) 05/28/2022 Laboratory Appointment Lab 05/28/2022 Office Visit Cardiology Zulma Dolan MD [facility] [place] [address] Liz Poole PA [facility] [place] [address] 06/10/2022 Office Visit Dermatology Laura Scherer MD [facility] [address] [place], [place] [address] (Wo rk) documented as of [...] Department: Vascular Surgery Lab VASCUBASE Report Patient: [id number] (DON HOANG) CPT: 11434 ICD10: I82.541 Referring Physician: MEÑO HUTSON ?? [...] extremity documented in this encounter Care Teams Cabinet Finisher Relationship Specialty Start Date End Date Lovely Vicente MD PCP - General 04/16/[address] [place] [address] documented as of this encounter
--- OUTSIDE RECORDS SUMMARY | 2022-05-20 09:37 | XMS_ITS | Encounter Summary ---
:1945 [place] [address] Care Team Providers Name Role Phone Lovely Vicente MD Primary Care Provider Encounter Details Date Type Department Care Team Description 08/04/2017 Notes Only Cardiac Surgery Makayla Wilson APRN [facility] [place] [address] CARDIAC SURGERY [phone] [place], [place] [address] (Wo rk) Social History Tobacco [...] Appointment Cardiology Zulma Dolan MD [facility] [place], [place] [address] (Wo rk) 05/28/2022 Laboratory Appointment Lab 05/28/2022 Office Visit Cardiology Zulma Dolan MD [facility] [place] [address] Liz Poole PA [facility] [place] [address] 06/10/2022 Office Visit Dermatology Laura Scherer MD [facility] [address] [place], [place] [address] (Wo rk) documented as of this encounter Visit Diagnoses Not on filedocumented in this encounter Care Teams Party Director Relationship Specialty Start Date End Date Lovely Vicente MD PCP - General 04/16/[address] [place] [address] documented as of this encounter
--- OUTSIDE RECORDS SUMMARY | 2022-05-20 09:37 | XMS_ITS | Encounter Summary ---
:1945 Author Organization [facility] [place] [address] Care Team Providers Name Role Phone Lovely Vicente MD Primary Care Provider Encounter Details Date Type Department Care Team Description 08/06/2017 Orders Only [facility] at [facility] [place] APRN Ischemia of foot [facility] [place] [address] VASCULAR SURGERY [phone] [place], [place] [address] (Wo rk) Social History Tobacco [...] [facility] [place], [place] [address] (Wo rk) 05/28/2022 Laboratory Appointment Lab 05/28/2022 Office Visit Cardiology Zulma Dolan MD [facility] [place] [address] Liz Poole PA [facility] [place] [address] 06/10/2022 Office Visit Dermatology Laura Scherer MD [facility] ER DR [address] [place], [place] [address] [...] 444 ms MUSE SYSTEM (Bezet) Calculated P Osprey 44 degrees MUSE SYSTEM Calculated R Osprey -31 degrees MUSE SYSTEM Calculated T Osprey 106 degrees MUSE SYSTEM INTERPRETATION Normal sinus [...] City/State/[place] [address] (ABNORMAL) Basic Metabolic Panel (non-fasting) (08/06/2017 12:32 PM EST) athologist Signature Glucose Lvl 92 65 - 199 [facility] mg/dL [facility] Comment: [...] or in patients with acute kidney failure. [email or web address] [email or web address] Specimen Anatomical Collection Method Collection Time Receive d Time (Source) Location / / Volume Laterality Blood specimen 08/06/2017 12:32 8 1:15 (specimen) PM EST PM EST Resulting Agency Comment Spec In Lab Arik Clement MD CHEMISTRY ORDERABLES Performing Organization Address City/State/[place] [address] (ABNORMAL) Hemogram (08/06/2017 12:32 PM EST) Analysis Performed At Patho logist Time Signature WBC 11.8 (H) 4.0 - 9.5 [facility] x10(3)/[facility] LABORATORY RBC 3.49 (L) 4.58 - [facility] 5.54 [facility] x10(6)/[facility] LABORATORY Hemoglobin 9.9 (L) 13.7 - [facility] 16.5 gm/dL [facility] LABOR[facility]ORY Hematocrit 32.0 (L) 40.5 - [facility] 48.5 % [facility] MCV 91.7 82.9 - [facility] 93.1 [facility] LABORATORY MCH 28.4 27.5 - [facility] 32.1 pg [facility] MCHC 30.9 (L) 32.0 - [facility] 35.7 gm/dL [facility] Platelets 326 145 - 357 [facility] x10(3)/[facility] LABORATORY RDWSD 53.4 (H) 36.0 - [facility] 45.0 [facility] LABORATORY RDWCV 16.0 (H) 11.4 - [facility] 13.8 % [facility] LABORATORY MPV 9.1 7.6 - 12.9 [facility] LABORATORY nRBC % Auto 0.0 % [facility] LABORATORY nRBC Abs Auto 0.000 0.000 - [facility] 0.000 [facility] x10(3)/[facility] LABORATORY Specimen Anatomical Collection Method Collection Time Receive d Time (Source) Location / / Volume Laterality Blood specimen 08/06/2017 12:32 8 1:15 (specimen) PM EST PM EST Resulting Agency Comment Spec In Lab Arik Clemnet MD HEMATOLOGY ORDERABLES Performing Organization Address City/State/[place] [address] documented in this encounter Visit Diagnoses Diagnosis Ischemia of foot Unspecified circulatory system disorder documented in this encounter Care Teams Support Service Tech Relationship Specialty Start Date End Date Lovely Vicente MD PCP - General 04/16/[address] [place] [address] documented as of this encounter
--- OUTSIDE RECORDS SUMMARY | 2022-05-20 09:37 | XMS_ITS | Encounter Summary ---
:1945 [place] [address] Care Team Providers Name Role Phone Lovely Vicente MD Primary Care Provider Encounter Details Date Type Department Care Team Description 07/29/2017 Telephone Pain Aurelia Crawford MD [facility] [place] [address] PAIN CLINIC [phone] [place], [place] [address] (Wo rk) Social History [...] Zulma Dolan MD [facility] [address] [place], [place] [address] (Wo rk) 05/28/2022 Laboratory Appointment Lab 05/28/2022 Office Visit Cardiology Zulma Dolan MD [facility] [place] [address] Liz Poole PA [facility] [place] [address] 06/10/2022 Office Visit Dermatology Laura Scherer MD [facility] [address] [place], [place] [address] (Wo rk) documented as of this encounter Visit Diagnoses Not on filedocumented in this encounter Care Teams Catia Designer Relationship Specialty Start Date End Date Lovely Vicente MD PCP - General 04/16/[address] [place] [address] [address] [place] [address] documented as of this encounter
--- OUTSIDE RECORDS SUMMARY | 2022-05-20 09:37 | XMS_ITS | Encounter Summary ---
:1945 Author Organization [place] [address] Care Team Providers Name Role Phone Lovely Vicente MD Primary Care Provider Encounter Details Date Type Department Care Team Description 08/02/2017 Telephone Pain Management at [place], [place] [address] Social History Tobacco Use Types Packs/Day [...] Management Center Preauthorization Request Patient: Don Fatima [id number] Fax received from [facility] requesting we obtain prior authorization for Lidocaine patches prescribed by Barbra Soares APRN. RX insurance plan: [employer] RX insurance telephone: [phone] Patient Diagnosis: right foot pain secondary to PVD and ischemia Previous medications attempted: Tylenol, Tramadol, Dilaudid The following action was taken after discussion with the tax services manager: _x_ pharmacy informed Authorized dosage or amount: 5% on patch on for 12 hours, then remove for 12 hours. Angeles Rodrigez, RN documented in this encounter Plan of Treatment Upcoming Encounters Date Type Specialty Care Team Description 05/28/2022 Appointment Cardiology Zulma Dolan MD [facility] [place], [place] [address] (Wo rk) 05/28/2022 Laboratory Appointment Lab 05/28/2022 Office Visit Cardiology Zulma Dolan MD [facility] [place] [address] Liz Poole PA [facility] Cardiology [place] [address] 06/10/2022 Office Visit Dermatology Laura Scherer MD [facility] [address] [place], [place] [address] (Wo rk) documented as of this encounter Visit Diagnoses Not on filedocumented in this encounter Care Teams Collections Representative Relationship Specialty Start Date End Date Lovely Vicente MD PCP - General 04/16/[address] [place] [address] documented as of this encounter
--- OUTSIDE RECORDS SUMMARY | 2022-05-20 09:37 | XMS_ITS | Encounter Summary ---
:1945 Author Organization [facility] [place] [address] Care Team Providers Name Role Phone Lovely Vicente MD Primary Care Provider Reason for Visit Reason Comments Foot Pain Auth/Cert Specialty Diagnoses / Procedures Referred By Contact Refer red To Contact Diagnoses Ischemic foot Procedures NAYE OBSVO Referral ID Status Reason Start Date Expiration Date Visits Requ ested Visits Authorized [id number] 1 1 Encounter Details Date Type Department Care Team Description 07/27/2017 Emergency 1 [facility] [place] Lokesh Swenson MD [facility] [place] [address] Femoral artery pseudo-aneurysm, right; [facility] Tam Bauman MD [facility] [place] [address] [place] [address] Social History Tobacco Use Types Packs/Day [...] please contact your inpatient physician through the [facility] Patient Care Secretary . Issues after hours and on weekends [...] RLE critical limb ischemia, who presented to [facility] with worsening RLE pain. Pt post-op course after CABG was significant for paroxysmal Afib, and he was started on Coumadin given elevated CKVQ2HZXWO score. He presented 2 weeks following that, on 07/20, with RLE pain/pallor andwas found to have critical limb ischemia in setting of subtherapeutic INR, pseudoaneurysm Rt ACTUARIAL CLERK and occlusion b/l ant tibial arteries. [...] in the last 7068 hours. Invalid input(s): [id number] Recent Labs 07/08/17 0400 07/07/17 0515 07/06/17 [...] (it was low at 1.6 here at [facility]) 7. Use the tramadol if dilaudid or tylenol is not working 8. Stop taking the potassium supplement - your blood potassium level was elevated. Ask your doctors at future visits if this should be restarted. 9. Antibiotic for 5 days recommended by cardiothoracic surgery for chest wound drainage Follow-Up Appointments Vascular surgery as previously schedule Your Inpatient Doctor(s) at [facility]: CARLOS ALBERTO ROSALES MD General Instructions None Future Appointments and Orders Future Appointments Provider Department Dept Phone 07/30/2017 8:30 AM OSWALDO, THREE L Lab 3L [facility] [phone] 07/30/2017 9:40 AM Danette Maxwell APRN Cardiology at [place] [phone] 08/04/2017 1:00 PM Daniele Mooney [place] Vascular Lab at [place] [phone] 08/04/2017 2:15 PM Arik Clement MD Vascular Surgery at [place] [phone] 08/11/2017 10:00 AM [facility] ROOM 2 XRay at [place] [phone] Please go to [facility] Made Shoe Unit Worker Area 3T ([place] Location). 08/11/2017 11:00 AM Yuan Retana MD Cardiac Surgery at [place] [phone] 09/07/2017 3:00 PM LAB, THREE L Lab 3L [facility] [phone] 09/07/2017 4:00 PM Luz Prescott MD Endocrinology at [place] [phone] Discharge References/Attachments None documented in this encounter [...] (it was low at 1.6 here at [facility]) 3. Use the tramadol if dilaudid or tylenol is not working 4. Stop taking the potassium supplement - your blood potassium level was elevated. Ask your doctors at future visits if this should be restarted. 5. Antibiotic for 5 days recommended by cardiothoracic surgery for chest wound drainage Follow-Up Appointments Vascular surgery as previously schedule Your Inpatient Doctor(s) at [facility]: CARLOS ALBERTO ROSALES MD [...] Gas) No results found for: PHART, PO2ART, OSB1UJA Assessment/Plan: 72 y.o. male s/p CABG in [...] intervention: Education Nutrition Recommendations: Recommend continuation of [facility], CHO2 diet order Patient [...] Orders Diet Daily Healthy Menu Choices/Cardiac diet ([facility]-Diet) 60/ CHO counting level 2 Frequency: Effective Now Number of Occurrences: Until Specified Admit Weight: 83.92 kg Estimated body mass index is 28.13 kg/(m^2) as calculated from the following: Height as of this encounter: 172.7 cm (5' 8). Weight as of this encounter: 83.9 kg (185 lb). [place] body weight: 68.4 kg (150 lb 12.7 [...] RLE critical limb ischemia, who presented to [facility] with worsening RLE pain. [...] spent >30 minutes (Day of Discharge Code 29963) involved in the final examination of the [...] Melanoma ID: 72 y.o. Male presents to [facility] with persistent pain b/l lower extremities History of Present Illness: HPI 72 y.o. male with PMH ASCVD s/p CABG (07/07/17), MARIA VICTORIA on CPAP QHS, HTN, HLD, DM2, with recent hospitalization for RLE critical limb ischemia, who presented to [facility] with worsening RLE pain. Pt post-op course after CABG was significant for paroxysmal Afib, and he was started on Coumadin given elevated [id number] score. He presented 2 weeks following that, on 07/20, with RLE pain/pallor andwas found to have critical limb ischemia in setting of subtherapeutic INR, pseudoaneurysm Rt ACTUARIAL CLERK and occlusion b/l ant tibial arteries. [...] [facility] ??? PRO COLONOSCOPY, REMV [...] Mcknight MD at [facility] Prior To Admission Medications: (Not [...] Procedure Component Value Units Date/Time Blood culture [[id number]] Collected: 07/09/1739 Lab Status: Final result Specimen: Blood from Arm, Right Updated: 07/14/17701 Blood Culture No growth at 5 days. Blood culture [[id number]] Collected: 07/09/170 Lab Status: Final result Specimen: [...] limb ischemia following CABG, who presented to [facility] ED from home with [...] continued Diet Daily Healthy Menu Choices/Cardiac diet ([facility]-Diet) 60/60/75 CHO counting level 2Cardiac, low salt, CHO 2 Discharge planning Pending improvement in pain control PT/OT/Speech PT ordered Lines/Access PIV Ocasio catheter No DVT/GI Prophylaxis Lovenox bridge to Coumadin, SCD. Code status Full Code Family PCP Lovely Vicente MD [phone] Attestation Please see my note for details [...] encounter Miscellaneous Notes Plan of Care - [place]-Joyce Damian, PT - 07/27/2017 3:26 PM EST [...] Anticipated Discharge Disposition: home with assist Pager: [phone] JOYCE KING, PT Inpatient Physical Therapy 2017 [...] including the following functional test(s) [facility]. Current ability measures, co-morbidities and clinical [...] a lovenox bridge. Mr. Fatima returns to [facility] ED tonight because of [...] [facility] ??? PRO COLONOSCOPY, REMV [...] Mcknight MD at [facility] MEDICATIONS: No current facility-administered medications [...] up in clinic 1-2 weeks after discharge. [facility] Vascular Surgery Plan of Care - [...] Zulma Dolan MD [facility] [place], [place] [address] (Wo rk) 05/28/2022 Laboratory Appointment Lab 05/28/2022 Office Visit Cardiology Zulma Dolan MD [facility] [place] [address] Liz Poole PA [facility] [place] [address] 06/10/2022 Office Visit Dermatology Laura Scherer MD [facility] [address] [place], [place] [address] (Wo rk) documented as [...] section. TYPE AND SCREEN STAT 07/27/2017 12:53 ([facility]/CGP/SHANDA) AM EST BASIC METABOLIC PANEL STAT 07/27/2017 12:53 Re sults for this (NON-FASTING) AM EST procedure are in the results section. documented in this encounter Results POCT Glucose (07/27/2017 11:53 AM EST) P athologist Signature POC Glucose 175 65 - 199 [facility] mg/dL [facility] [...] Address City/State/[place] [address] Arterial Duplex Leg, Unil (07/27/2017 7:40 AM EST) Component Value Ref Test Analysis Performed At Patholo gist Range Method Time Signature VB Text Department: Vascular Surgery Lab VASCUBASE Report Patient: [id number] (GREGORY FATIMA) CPT: 99625 ICD10: I97.610;I72.4;Z09 Referring Physician: TAM BAUMAN ?? [...] MD VASCULAR ORDERABLES Performing Organization Address City/[facility]/ZIP Code Phon e Number VASCUBASE POCT Glucose (07/27/2017 6:51 AM EST) P athologist Signature POC Glucose 96 65 - 199 [facility] mg/dL [facility] [...] S Performing Organization Address City/[facility]/ZIP [facility] Phon e Number [address] ABORH Recheck Status (07/27/2017 [...] City/[facility]/[place] [address] Gold Tube HOLD (07/27/2017 12:53 AM EST) P athologist Signature Gold Hold Sample in [facility]. [facility] LABORATORY Specimen Anatomical Collection Method Collection Time Receive d Time (Source) Location / / Volume Laterality Blood specimen Venous Draw / 07/27/2017 12:53 07/27/19 18 1:01 (specimen) Unknown AM EST AM EST Angela Swenson MD CHEMISTRY ORDERABLES Performing Organization Address City/State/ZIP [place] [address] (ABNORMAL) Differential, Automated (07/27/2017 12:53 AM EST) Patholo gist Method Time Signature Neutrophils % 75.0 % [facility] LABORATORY Neutr Abs (ANC) 11.30 (H) 1.70 - [facility] 6.10 [facility] x10(3)/[facility] LABORATORY Lymphocytes % 9.9 % [facility] LABORATORY Lymphocytes Abs 1.5 0.9 - 3.2 [facility] x10(3)/[facility] LABORATORY Monocytes % 8.6 % [facility] LABORATORY Monocyte Abs 1.3 (H) 0.3 - 0.9 [facility] x10(3)/[facility] LABORATORY Eosinophils % 4.8 % [facility] LABORATORY Eosinophils Abs 0.7 (H) 0.0 - 0.4 [facility] x10(3)/[facility] LABORATORY Basophils % 0.8 % [facility] LABORATORY Basophils Abs 0.1 0.0 - 0.1 [facility] x10(3)/[facility] LABORATORY Immature Gran % 0.90 % [...] Gran Abs 0.13 (H) 0.00 - 0.04 x10(3)/[facility] LABORATORY Specimen Anatomical Collection Method Collection Time Receive d Time (Source) Location / / Volume Laterality Blood specimen 07/27/2017 12:53 8 1:00 (specimen) AM EST AM EST Resulting Agency Comment Spec In Lab Angela Swenson MD HEMATOLOGY ORDERABLES Performing Organization Address City/State/ZIP [place] [address] (ABNORMAL) Hemogram (07/27/2017 12:53 AM EST) Analysis Performed At Patho logist Time Signature WBC 15.0 (H) 4.0 - 9.5 [facility] x[facility](3[facility] LABORATORY RBC 3.59 (L) 4.58 - [facility] 5.54 [facility] x10(6)/[facility] LABORATORY Hemoglobin 10.3 (L) 13.7 - [facility] 16.5 gm/dL [facility] LABORATORY Hematocrit 32.6 (L) 40.5 - [facility] 48.5 % [facility] LABORATORY MCV 90.8 82.9 - [facility] 93.1 [facility] LABORATORY MCH 28.7 27.5 - [facility] R[facility]AN 32.1 pg [facility] LABORATORY MCHC 31.6 (L) 32.0 - [facility] 35.7 gm/dL [facility] LABORATORY Platelets 322 145 - 357 [facility] x10(3)/[facility] RDWSD 48.7 (H) 36.0 - [facility] 45.0 [facility] LABORATORY RDWCV 14.7 (H) 11.4 - [facility] 13.8 % [facility] LABORATORY MPV 8.9 7.6 - 12.9 [facility] LABORATORY nRBC % Auto 0.0 % [facility] LABORATORY nRBC Abs Auto 0.000 0.000 - [facility] 0.000 [facility] x10(3)/[facility] LABORATORY Specimen Anatomical Collection Method Collection Time Receive d Time (Source) Location / / Volume Laterality Blood specimen 07/27/2017 12:53 8 1:00 (specimen) AM EST AM EST Resulting Agency Comment Spec In Lab Angela Swenson MD HEMATOLOGY ORDERABLES Performing Organization Address City/State/[place] [address] Antibody screen (07/27/2017 12:53 AM EST) Patholo gist Method Time Signature Ab Screen Negative [facility] LABORATORY Expires at 07/30/2017 KATALINA ZHAORYAN 2359 on: [facility] LABORATORY Specimen Anatomical Collection Method Collection Time Receive d Time (Source) Location / / Volume Laterality Blood specimen 07/27/2017 12:53 8 (specimen) AM EST 12:58 AM EST Resulting Agency Comment Spec In Lab Angela Swenson MD BLOOD BANK ORDERABLES Performing Organization Address City/[facility]/[place] [address] ABO/Rh Typing (07/27/2017 12:53 AM EST) P athologist Signature ABORh Type O Pos [facility] LABORATORY Specimen Anatomical Collection Method Collection Time Receive d Time (Source) Location / / Volume Laterality Blood specimen 07/27/2017 12:53 8 (specimen) AM EST 12:58 AM EST Resulting Agency Comment Spec In Lab Angela Swenson MD BLOOD BANK ORDERABLES Performing Organization Address City/[facility] [place] [address] (ABNORMAL) Prothrombin Time (07/27/2017 [...] Organization Address City/State/ZIP [place] [address] (ABNORMAL) Basic Metabolic Panel (non-fasting) (07/27/2017 12:53 AM EST) athologist Signature Glucose Lvl 95 65 - 199 [facility] mg/dL [facility] LABORATORY Comment: Diabetes: >=200 mg/dL plus symp toms BUN 37 (H) 10 - 20 mg/dL [facility] LABORATORY Creatinine 1.49 0.80 - 1.50 mg/dL [facility] LABORATORY Sodium 137 135 - 145 mmol/L [facility] LABORATORY Potassium 5.1 (H) 3.5 - 5.0 mmol/L [facility] [...] mg/dL [facility] LABORATORY Estimated GFR 46 (L) >=60 [facility] LABORATORY Comment: The reported eGFR should be multiplied b y 1.2 for patients. The MDRD is not an appropriate measure o f renal function for patients with body mass extremes or in patients with acute kidney failure. 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
Routine documented in this encounter Care Teams Sightseeing Guide Relationship Specialty Start Date End Date Lovely Vicente MD PCP - General 04/16/15 [facility] [address] [facility] [address] [place] [address] documented as of this encounter
--- OUTSIDE RECORDS SUMMARY | 2022-05-20 09:37 | XMS_ITS | Encounter Summary ---
:1945 Author Organization [facility] Address [facility] [place] [address] Care Team Providers Name Role Phone Lovely Vicente MD Primary Care Provider Encounter Details Date Type Department Care Team Description 07/29/2017 Transcribe Orders Laboratory Lovely Vicente, Coronary artery rupture; [facility] Ischemic cardiomyopathy; [facility] [address] Atherosclerosis of [place] co ronary artery, angina presence unspecified, unspecified whether [place] or transplanted heart; [place], [place] [address] Essential hypertension, malignant; [address] [place], [place] 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 er [place], [place] [address] (Wo rk) 05/28/2022 Laboratory Appointment Lab 05/28/2022 Office Visit Cardiology Zulma Dolan MD [facility] [place] [address] Liz Poole PA [facility] [place] [address] 06/10/2022 Office Visit Dermatology Laura Scherer MD [facility] ER [address] [place], [place] [address] (Wo rk) Scheduled Orders Name Type Priority Associated Diagnoses Order S chedule Lab Use Only, Fax Lab Routine Coronary arter y rupture Expected: 07/29/2017 Request Ischemic cardiom yopathy (Approximate), Atherosclerosis of [place] Ex jose: 07/29/2018 coronary artery, angina presence unspecified, unspecified whether [place] or transplanted heart Essential hypertension, malignant documented as of this encounter Results Uric acid (08/04/2017 12:55 PM EST) P athologist Signature Uric Acid 7.1 3.5 - 8.5 [facility] mg/dL [facility] Specimen Anatomical Collection Method Collection Time Receive d Time (Source) Location / / Volume Laterality Blood specimen 08/04/2017 12:55 8 1:01 (specimen) PM EST PM EST Resulting Agency Comment Spec In Lab Lovely Vicente MD CHEMISTRY ORDERABLES Performing Organization Address City/State/[place] [address] (ABNORMAL) Hemogram (08/04/2017 12:55 PM EST) Analysis Performed At Patho logist Time Signature WBC 15.8 (H) 4.0 - 9.5 [facility] x10(3)/[facility] LABORATORY RBC 3.48 (L) 4.58 - [facility] 5.54 [facility] x10(6)/[facility] LABORATORY Hemoglobin 9.9 (L) 13.7 - [facility] 16.5 gm/dL [facility] Hematocrit 31.4 (L) 40.5 - KATALINA DAVIS 48.5 % [facility] MCV 90.2 82.9 - [facility].[address] [facility] LABORATORY MCH 28.4 27.5 - KATALINA RYAN 32.1 pg [facility] MCHC 31.5 (L) 32.0 - KATALINA ZHAORYAN 35.7 gm/dL [facility] Platelets 310 145 - 357 [facility] x10(3)/[facility] LABORATORY RDWSD 51.8 (H) 36.0 - KATALINA RYAN 45.[address] [facility] LABORATORY RDWCV 15.8 (H) 11.4 - [facility] 13.8 % [facility] MPV 8.9 7.6 - 12.9 [facility] LABORATORY nRBC % Auto 0.0 % [facility] nRBC Abs Auto 0.000 0.000 - [facility] 0.000 [facility] x10(3)/[facility] LABORATORY Specimen Anatomical Collection Method Collection Time Receive d Time (Source) Location / / Volume Laterality Blood specimen 08/04/2017 12:55 8 1:01 (specimen) PM EST PM EST Resulting Agency Comment Spec In Lab Lovely Vicente MD HEMATOLOGY ORDERABLES Performing Organization Address City/State/ZIP Code Phon e Number [place] [id number] (ABNORMAL) Comprehensive metabolic panel (non-fasting) (08/04/2017 12:55 PM EST) P athologist Signature Glucose Lvl 208 (H) 65 - 199 [facility] mg/dL [facility] Comment: [...] or in patients with acute kidney failure. [email or web address]/DHnkdep [email or web address]/DHMCnkf Specimen Anatomical Collection Method Collection Time Receive d Time (Source) Location / / Volume Laterality Blood specimen 08/04/2017 12:55 8 1:01 (specimen) PM EST PM EST Resulting Agency Comment Spec In Lab Lovely Vicente MD CHEMISTRY ORDERABLES Performing Organization Address City/State/[place] [address] (ABNORMAL) Hemoglobin A1c (08/04/2017 [...] Avg Gluc See note mg/dL KATALINA DAVIS [facility] Comment: Estimated Average Glucose not [...] with hemoglobinopathies. Additional resources are available on [employer] ADA website. Macario HAMMOND, Ruthann J, Deysi R, et al. ??Tr anslating the A1C assay into estimated average glucose values. ??Diabetes Care 2008:31(8):7330-2861. Specimen Anatomical Collection Method Collection Time Receive d Time (Source) Location / / Volume Laterality Blood specimen 08/04/2017 12:55 8 1:01 (specimen) PM EST PM EST Resulting Agency Comment Spec In Lab Lovely Vicente MD CHEMISTRY ORDERABLES Performing Organization Address City/State/[place] [address] (ABNORMAL) Prothrombin Time (08/04/2017 [...] Address City/State/[place] [address] documented in this encounter Visit Diagnoses Diagnosis Coronary artery rupture Acute myocardial infarction, unspecified site, episode of care unspecified Ischemic cardiomyopathy Other specified forms of chronic ischemi c heart disease Atherosclerosis of [place] coronary arter y, angina presence unspecified, unspecified whether [place] or transplanted heart Essential hypertension, malignant Diabetes mellitus due to underlying cond ition with diabetic nephropathy, unspecified shelter insulin use status documented in this encounter Care Teams Production Engineer Track Relationship Specialty Start Date End Date Lovely Vicente MD PCP - General 04/16/[address] [place] [address] documented as of this encounter
--- OUTSIDE RECORDS SUMMARY | 2022-05-20 09:37 | XMS_ITS | Encounter Summary ---
:1945 [place] [address] Care Team Providers Name Role Phone Lovely Vicente MD Primary Care Provider Encounter Details Date Type Department Care Team Description 08/03/2017 Hospital Encounter Radiology Library at [place], Tommy Mijares [facility] [place] [address] VASCULAR SURGERY [phone] [place], [place] 0[address] (Wo rk) Social [...] Dolan MD [facility] Dr [place], [place] [address] (Wo rk) 05/28/2022 Laboratory Appointment Lab 05/28/2022 Office Visit Cardiology Zulma Dolan MD [facility] [place] [address] Liz Poole PA [facility] [place] [address] 06/10/2022 Office Visit Dermatology Laura Scherer MD [facility] DR [address] [place], [place] [address] (Wo rk) documented [...] Organization Address City/State/ZIP Code Phon e Number [place], [place] documented in this encounter Visit Diagnoses Diagnosis Pain Generalized pain documented in this encounter Care Teams Order Entry Specialist Relationship Specialty Start Date End Date Lovely Vicente MD PCP - General 04/16/[address] [place] [address] documented as of this encounter
--- OUTSIDE RECORDS SUMMARY | 2022-05-20 09:37 | XMS_ITS | Encounter Summary ---
:1945 [place] [address] Care Team Providers Name Role Phone Lovely Vicente MD Primary Care Provider Encounter Details Date Type Department Care Team Description 08/04/2017 Notes Only Pain Management at Barbra Bruno, STACIE [facility] [place] [address] [place] [address] [phone] (Wo rk) Social History Tobacco Use Types [...] bid) at this time. Barbra Soares, MSN, OUTREACH CONSULTANT-BC, [facility] documented in this encounter Plan of Treatment Upcoming Encounters Date Type Specialty Care Team Description 05/28/2022 Appointment Cardiology Zulma Dolan MD [facility] [address] [place], [place] [address] (Wo rk) 05/28/2022 Laboratory Appointment Lab 05/28/2022 Office Visit Cardiology Zulma Dolan MD [facility] [place] [address] Liz Poole PA [facility] [place] [address] 06/10/2022 Office Visit Dermatology Laura Scherer MD [facility] [address] [place], [place] [address] (Wo rk) documented as of this encounter Visit Diagnoses Not on filedocumented in this encounter Care Teams Ironer Relationship Specialty Start Date End Date Lovely Vicente MD PCP - General 04/16/[address] [place] [address] documented as of this encounter
--- OUTSIDE RECORDS SUMMARY | 2022-05-20 09:37 | XMS_ITS | Encounter Summary ---
:1945 Author Organization [facility] [place] [address] Care Team Providers Name Role Phone Lvoely Vicente MD Primary Care Provider Reason for Visit Auth/Cert Specialty Diagnoses / Procedures Referred By Contact Refer red To Contact Diagnoses Critical lower limb ischemia CELLULITIS RT FOOT Procedures EMERGENCY Referral ID Status Reason Start Date Expiration Date Visits Requ ested Visits Authorized [id number] 1 1 Encounter Details Date Type Department Care Team Description 08/06/2017 Clinical Support [place] [facility] Ischemia of foot [facility] [place] [address] Social History Tobacco Use Types Packs/Day [...] noother symptoms except severe right foot pain. [facility] clinic called as pt on [...] Dolan MD [facility] Dr [place], [place] [address] (Wo rk) 05/28/2022 Laboratory Appointment Lab 05/28/2022 Office Visit Cardiology Zulma Dolan [place] [facility] [place] [address] Liz Poole PA [facility] [place] [address] 06/10/2022 Office Visit Dermatology Laura Scherer MD [facility] DR [address] [place], [place] [address] (Wo rk) documented as of [...] disorder documented in this encounter Care Teams Mangle Roller Relationship Specialty Start Date End Date Lovely Vicente MD PCP - General 04/16/[address] [place] [address] documented as of this encounter
--- OUTSIDE RECORDS SUMMARY | 2022-05-20 09:37 | XMS_ITS | Encounter Summary ---
:1945 [place] [address] Care Team Providers Name Role Phone Lovely Vicente MD Primary Care Provider Encounter Details Date Type Department Care Team Description 08/04/2017 Notes Only Cardiac Surgery Makayla Wilson VISUAL COORDINATOR [facility] [place] [address] CARDIAC SURGERY [phone] [place], [place] [address] (Wo rk) Social History Tobacco [...] Dolan MD [facility] [address] [place], [place] [address] (Wo rk) 05/28/2022 Laboratory Appointment Lab 05/28/2022 Office Visit Cardiology Zulma Dolan [place] [facility] [place] [address] Liz Poole PA [facility] [place] [address] 06/10/2022 Office Visit Dermatology Laura Scherer MD [facility] DR [address] [facility] [place] [address] (Wo rk) documented as of this encounter Visit Diagnoses Not on filedocumented in this encounter Care Teams Furniture Servicer Relationship Specialty Start Date End Date Lovely Vicente MD PCP - General 04/16/[address] [place] [address] documented as of this encounter
--- OUTSIDE RECORDS SUMMARY | 2022-05-20 09:37 | XMS_ITS | Encounter Summary ---
:1945 Author Organization [facility] [place] [address] Care Team Providers Name Role Phone Lovely Vicente MD Primary Care Provider Reason for Visit Reason Comments Follow-up Encounter Details Date Type Department Care Team Description 07/29/2017 Office Visit Cardiac Surgery at [facility] Yuan Retana MD S/P CABG x [address] [facility] [address] CARDIOTHORACIC SURGERY [phone] [place], [place] [address] (Wo rk) Social History Tobacco [...] evaluation by vascular surgery. Yuan Retana MD [phone] documented in this encounter Plan of Treatment Upcoming Encounters Date Type Specialty Care Team Description 05/28/2022 Appointment Cardiology Zulma Dolan MD [facility] er Dr [place] [address] (Wo rk) 05/28/2022 Laboratory Appointment Lab 05/28/2022 Office Visit Cardiology Zulma Dolan MD [facility] [place] [address] Liz Poole PA [facility] [place] [address] 06/10/2022 Office Visit Dermatology Laura Scherer MD [facility] ER DR [address] [place], [place] 037 (Wo rk) documented as of this encounter Visit Diagnoses Diagnosis S/P CABG x 3 Postsurgical aortocoronary bypass status documented in this encounter Care Teams Tube Pusher Relationship Specialty Start Date End Date Lovely Vicente MD PCP - General 04/16/[address] [place] [address] documented as of this encounter
--- OUTSIDE RECORDS SUMMARY | 2022-05-20 09:37 | XMS_ITS | Encounter Summary ---
:1945 Author Organization [facility] [place] [address] Care Team Providers Name Role Phone Lovely Vicente MD Primary Care Provider Encounter Details Date Type Department Care Team Description 07/29/2017 Transcribe Orders Laboratory Lovely Vicente MD [address] [address] [place] [address] [phone] (Wo rk) Social History Tobacco Use Types [...] MD [facility] er Dr [place] 0[address] (Wo rk) 05/28/2022 Laboratory Appointment Lab 05/28/2022 Office Visit Cardiology Zulma Dolan MD [facility] [place] [address] Liz Poole PA [facility] [place] [address] 06/10/2022 Office Visit Dermatology Laura Scherer MD [facility] ER DR [address] [place], [place] [address] (Wo rk) documented as of this encounter Visit Diagnoses Not on filedocumented in this encounter Care Teams Milk Driver Relationship Specialty Start Date End Date Lovely Vicente MD PCP - General 04/16/[address] [place] [address] documented as of this encounter
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
--- OUTSIDE RECORDS SUMMARY | 2022-05-20 09:37 | XMS_ITS | Encounter Summary ---
:1945 Author Organization [facility] [place] [place] [address] Care Team Providers Name Role Phone Lovely Vicente MD Primary Care Provider Encounter Details Date Type Department Care Team Description 08/04/2017 Orders Only Cardiac Surgery Makayla Wislon APRN [facility] [place] [address] CARDIAC SURGERY [phone] [place], [place] [address] (Wo rk) Social History Tobacco [...] MD [facility] er Dr [place], [place] [address] (Wo rk) 05/28/2022 Laboratory Appointment Lab 05/28/2022 Office Visit Cardiology Zulma Dolan MD [facility] [place] [address] Liz Poole PA [facility] [place] [address] 06/10/2022 Office Visit Dermatology Laura Scherer MD [facility] ER [address] [place], [place] [address] (Wo rk) documented as of this encounter Visit Diagnoses Not on filedocumented in this encounter Care Teams Physical Therapy Aid Relationship Specialty Start Date End Date Lovely Vicente MD PCP - General 04/16/[address] [place] [address] documented as of this encounter
--- OUTSIDE RECORDS SUMMARY | 2022-05-20 09:37 | XMS_ITS | Encounter Summary ---
:1945 Author Organization [facility] [place] [address] Care Team Providers Name Role Phone Lovely Vicente MD Primary Care Provider Encounter Details Date Type Department Care Team Description 08/04/2017 Orders Only Cardiac Surgery Makayla Wilson APRN [facility] [place] [address] CARDIAC SURGERY [phone] [place], [place] [address] (Wo rk) Social History Tobacco [...] MD [facility] er [place], [place] [address] (Wo rk) 05/28/2022 Laboratory Appointment Lab 05/28/2022 Office Visit Cardiology Zulma Dolan MD [facility] [place] [address] Liz Poole PA [facility] [place] [address] 06/10/2022 Office Visit Dermatology Laura Scherer MD [facility] ER DR [address] [place], [place] [address] (Wo rk) documented as of this encounter Visit Diagnoses Not on filedocumented in this encounter Care Teams Stone Gang Sawyer Relationship Specialty Start Date End Date Lovely Vicente MD PCP - General 04/16/[address] [place] [address] documented as of this encounter
--- OUTSIDE RECORDS SUMMARY | 2022-05-20 09:37 | XMS_ITS | Encounter Summary ---
:1945 Author Organization [facility] [place] [address] Care Team Providers Name Role Phone Lovely Vicente MD Primary Care Provider Reason for Visit Auth/Cert Specialty Diagnoses / Procedures Referred By Contact Refer red To Contact Diagnoses Critical lower limb ischemia CELLULITIS RT FOOT Procedures EMERGENCY Referral ID Status Reason Start Date Expiration Date Visits Requ ested Visits Authorized [id number] 1 1 Encounter Details Date Type Department Care Team Description 08/06/2017 Hospital En[facility] [place] [address] Social History Tobacco Use Types Packs/Day [...] Zulma Dolan MD [facility] [address] [place], [place] [address] (Wo rk) 05/28/2022 Laboratory Appointment Lab 05/28/2022 Office Visit Cardiology Zulma Dolan MD [facility] [place] [address] Liz Poole PA [facility] [place] [address] 06/10/2022 Office Visit Dermatology Laura Scherer MD [facility] DR [address] [place], [place] [address] (Wo rk) documented as of this encounter Visit Diagnoses Not on filedocumented in this encounter Care Teams Manager Long Term Care Relationship Specialty Start Date End Date Lovely Vicente MD PCP - General 04/16/[address] [place] [address] documented as of this encounter
--- OUTSIDE RECORDS SUMMARY | 2022-05-20 09:37 | XMS_ITS | Encounter Summary ---
:1945 Author Organization [facility] [place] [address] Care Team Providers Name Role Phone Lovely Vicente MD Primary Care Provider Reason for Visit Auth/Cert Specialty Diagnoses / Procedures Referred By Contact Refer red To Contact Diagnoses Critical lower limb ischemia CELLULITIS RT FOOT Procedures EMERGENCY Referral ID Status Reason Start Date Expiration Date Visits Requ ested Visits Authorized [id number] 1 1 Encounter Details Date Type Department Care Team Description 08/04/2017 Hospital Encounter [place]Ray [place] [facility] Danette Maxwell Incisional pain [address] [place] [address] Dr Gmoes, CLOTHING SORTER [facility] [address] CARDIOLOGY [place], [place] [address] Social History Tobacco [...] Appointment Cardiology Zulma Dolan MD [facility] [place], [place] [address] (Wo rk) 05/28/2022 Laboratory Appointment Lab 05/28/2022 Office Visit Cardiology Zulma Dolan MD [facility] [place] [address] Liz Poole PA [facility] [place] [address] 06/10/2022 Office Visit Dermatology Laura Scherer MD [facility] DR [address] [place], [place] [address] [...] original. EXAMINATION: XR CHEST PA AND LATERAL (blinkbox) CLINICAL HISTORY: Checking sternal stabi lity/assess wires [...] Daniele gutiérrez 08/04/2017 4:13 PM Danette Maxwell CLOTHING SORTER IMG DX ORDERABLES documented in this encounter Visit Diagnoses Diagnosis Incisional pain Disturbance of skin sensation documented in this encounter Care Teams Coater Helper Relationship Specialty Start Date End Date Lovely Vicente MD PCP - General 04/16/[address] [place] [address] documented as of this encounter
--- OUTSIDE RECORDS SUMMARY | 2022-05-20 09:37 | XMS_ITS | Encounter Summary ---
:1945 [place] [address] Care Team Providers Name Role Phone Lovely Vicente MD Primary Care Provider Encounter Details Date Type Department Care Team Description 08/05/2017 Notes Only Vascular Surgery at [facility] [place], STACIE [facility] [place] [address] VASCULAR SURGERY [phone] [place], [place] [address] (Wo rk) Social History Tobacco [...] Cardiology Zulma Dolan MD [facility] [place], [place] [address] (Wo rk) 05/28/2022 Laboratory Appointment Lab 05/28/2022 Office Visit Cardiology Zulma Dolan MD [facility] [place] [address] Liz Poole PA [facility] [place] [address] 06/10/2022 Office Visit Dermatology Laura Scherer MD [facility] DR [address] [place], [place] [address] (Wo rk) documented as of this encounter Visit Diagnoses Not on filedocumented in this encounter Care Teams Medical Record Librarians Teacher Relationship Specialty Start Date End Date Lovely Vicente MD PCP - General 04/16/15 [facility] [address] [place] [address] documented as of this encounter
--- OUTSIDE RECORDS SUMMARY | 2022-05-20 09:37 | XMS_ITS | Encounter Summary ---
:1945 Author Organization [place] [address] Care Team Providers Name Role Phone Lovely Vicente MD Primary Care Provider Reason for Visit Auth/Cert Specialty Diagnoses / Procedures Referred By Contact Refer red To Contact Diagnoses Critical lower limb ischemia CELLULITIS RT FOOT Procedures EMERGENCY Referral ID Status Reason Start Date Expiration Date Visits Requ ested Visits Authorized [id number] 1 1 Encounter Details Date Type Department Care Team Description 08/04/2017 Laboratory Appointment Lab 3L [facility] [place] [address] Social History Tobacco Use Types Packs/Day [...] MD [facility] er [address] [place] [address] (Wo rk) 05/28/2022 Laboratory Appointment Lab 05/28/2022 Office Visit Cardiology Zulma Dolan MD [facility] [place] [address] Liz Poole PA [facility] [place] [address] 06/10/2022 Office Visit Dermatology Laura Scherer MD [facility] DR TE[address]DERMAT [place], [place] [address] (Wo rk) documented as of this encounter Visit Diagnoses Not on filedocumented in this encounter Care Teams Improvement Advisor Relationship Specialty Start Date End Date Lovely Vicente MD PCP - General 04/16/15 [facility] [address] [place], [place] [address] documented as of this encounter
--- OUTSIDE RECORDS SUMMARY | 2022-05-20 09:37 | XMS_ITS | Encounter Summary ---
:1945 Author Organization [facility] [place] [address] Care Team Providers Name Role Phone Lovely Vicente MD Primary Care Provider Reason for Visit Auth/Cert Specialty Diagnoses / Procedures Referred By Contact Refer red To Contact Diagnoses Critical lower limb ischemia CELLULITIS RT FOOT Procedures EMERGENCY Referral ID Status Reason Start Date Expiration Date Visits Requ ested Visits Authorized [id number] 1 1 Encounter Details Date Type Department Care Team Description 08/06/2017 Laboratory Appointment Lab at [facility] Ischemia of foot [facility] [place] [address] Social History Tobacco Use Types Packs/Day [...] [facility] [place] [address] [place] [address] (Wo rk) 05/28/2022 Laboratory Appointment Lab 05/28/2022 Office Visit Cardiology Zulma Dolan MD [facility] [place] [address] Liz Poole PA [facility] [place] [address] 06/10/2022 Office Visit Dermatology Laura Scherer MD [facility] ER DR [address]-DERMAT [facility] [place] [place] [address] (Wo rk) documented [...] Signature Prealbumin 19 (L) 20 - 40 [facility] mg/dL [facility]ORATORY Comment: Prealbumin levels are [...] City/State/[place] [address] (ABNORMAL) Basic Metabolic Panel (non-fasting) (08/06/2017 12:32 PM EST) P athologist Signature Glucose Lvl 92 65 - 199 [facility] mg/dL [facility] Comment: [...] CENTER LABORATORY Estimated GFR 53 (L) >=60 [facility] Comment: The reported eGFR should be multiplied b y 1.2 for patients. The MDRD is not an appropriate measure o f renal function for patients with body mass extremes or in patients with acute kidney failure. http://Cramster/DHnkdep http://Cramster/DHMCnkf Specimen Anatomical Collection Method Collection Time Receive d Time (Source) Location / / Volume Laterality Blood specimen 08/06/2017 12:32 8 1:15 (specimen) PM EST PM EST Resulting Agency Comment Spec In Lab Arik Clement MD CHEMISTRY ORDERABLES Performing Organization Address City/State/[place] [address] (ABNORMAL) Hemogram (08/06/2017 12:32 PM EST) Analysis Performed At Patho logist Time Signature WBC 11.8 (H) 4.0 - 9.5 [facility] x10(3)/[facility] LABORATORY RBC 3.49 (L) 4.58 - [facility] 5.54 [facility] x10(6)/[facility] LABORATORY Hemoglobin 9.9 (L) 13.7 - [facility] 16.5 gm/dL [facility] Hematocrit 32.0 (L) 40.5 - [facility] 48.[facility] % [facility] MCV 91.7 82.9 - [facility] 93.1 [facility] LABORATORY MCH 28.4 27.5 - [place] DAVIS [address] [facility]ORATORY MCHC 30.9 (L) 32.0 - [place] 35.7 gm/dL [facility] Platelets 326 145 - 357 [facility] x10(3)/[facility] LABORATORY RDWSD 53.4 (H) 36.0 - [place] 45.0 [facility] LABORATORY RDWCV 16.0 (H) 11.4 - [place] RYAN 13.8 % [facility] LABORATORY MPV 9.1 7.6 - 12.9 [facility] LABORATORY nRBC % Auto 0.0 % [facility] LABORATORY nRBC Abs Auto 0.000 0.000 - [place] 0.000 [facility] x10(3)/[facility] LABORATORY Specimen Anatomical Collection Method Collection Time Receive d Time (Source) Location / / Volume Laterality Blood specimen 08/06/2017 12:32 8 1:15 (specimen) PM EST PM EST Resulting Agency Comment Spec In Lab Arik Clement MD HEMATOLOGY ORDERABLES Performing Organization Address City/State/ZIP Code Phon e Number [place] [id number] documented in this encounter Visit Diagnoses Diagnosis Ischemia of foot Unspecified circulatory system disorder documented in this encounter Care Teams Drier Attendant Relationship Specialty Start Date End Date Lovely Vicente MD PCP - General 04/16/[address] [place] [address] documented as of this encounter
--- OUTSIDE RECORDS SUMMARY | 2022-05-20 09:37 | XMS_ITS | Encounter Summary ---
:1945 [place] [address] Care Team Providers Name Role Phone Lovely Vicente MD Primary Care Provider Encounter Details Date Type Department Care Team Description 08/03/2017 Hospital Encounter Radiology Library at [place], Tommy Mijares [facility] [place] [address] VASCULAR SURGERY [phone] [place], [place] [address] (Wo rk) Social History Tobacco [...] Zulma Dolan MD [facility] [address] [place], [place] [address] (Wo rk) 05/28/2022 Laboratory Appointment Lab 05/28/2022 Office Visit Cardiology Zulma Dolan MD [facility] [place] [address] Liz Poole PA [facility] [place] [address] 06/10/2022 Office Visit Dermatology Laura Scherer MD [facility] [address] [place], [place] [address] (Wo rk) documented as of [...] / Laterality Volume Narrative [facility] - 08/03/2017 6:03 PM EST This exam is for storage only and is aut o-finalizing. Arik Clement MD G FILM LIBRARY ORDERABLES Performing Organization Address City/State/ZIP Code Phon e Number [place], [place] documented in this encounter Visit Diagnoses Diagnosis Pain Generalized pain documented in this encounter Care Teams Stuffing Machine Operator Relationship Specialty Start Date End Date Lovely Vicente MD PCP - General 04/16/[address] [place] [address] documented as of this encounter
--- OUTSIDE RECORDS SUMMARY | 2022-05-20 09:37 | XMS_ITS | Encounter Summary ---
:1945 [place] [address] Care Team Providers Name Role Phone Lovely Vicente MD Primary Care Provider Encounter Details Date Type Department Care Team Description 07/29/2017 Hospital Encounter Vascular Lab at Critic monica Huber lower limb [facility] [place] [id number] Social History Tobacco Use Types Packs/Day Years [...] Zulma Dolan MD [facility] [place], [place] [address] (Wo rk) 05/28/2022 Laboratory Appointment Lab 05/28/2022 Office Visit Cardiology Zulma Dolan MD [facility] [place] [address] Liz Poole PA [facility] [place] [address] 06/10/2022 Office Visit Dermatology Laura Scherer MD [facility] DR [address]DERMAT [place], [place] [address] (Wo rk) documented as of this encounter Visit Diagnoses Diagnosis Critical lower limb ischemia Unspecified circulatory system disorder documented in this encounter Care Teams Phone Banker Relationship Specialty Start Date End Date Lovely Vicente MD PCP - General 04/16/[address] [place] [address] documented as of this encounter
--- OUTSIDE RECORDS SUMMARY | 2022-05-20 09:37 | XMS_ITS | Encounter Summary ---
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 Hank Zhang Vascular Surgery, PGY2 Pager #[phone] Associated attestation - Arik Clement MD - [...] Cardiology Zulma Dolan MD [facility] [place], [place] [address] (Wo rk) 05/28/2022 Laboratory Appointment Lab 05/28/2022 Office Visit Cardiology Zulma Dolan MD [facility] [place] [address] Liz Poole PA [facility] [place] [address] 06/10/2022 Office Visit Dermatology Laura Scherer MD [facility] DR [address] [place], [place] [address] (Wo rk) documented as [...] Department: Vascular Surgery Lab VASCUBASE Report Patient: [id number] (GREGORY FATIMA) CPT: 87309 ICD10: I82.541 Referring Physician: TAMIKO JIMÉNEZ ?? [...] 128 65 - 199 [facility] mg/dL [facility] Comment: [...] Address City/State/ZIP Code Phon e Number [address] (ABNORMAL) D-Dimer, Quantitative (07/29/2017 2:15 PM EST) [facility] JoopLoop Method Time Signature D-Dimer, Quant 1,699 (H) 0 - 500 [facility] FEU ng/ml [facility] Comment: The D-Dimer assay is [...] Address City/State/[place] [address] (ABNORMAL) Differential, Automated (07/29/2017 2:15 PM EST) [facility] JoopLoop Method Time Signature Neutrophils % 82.5 % [facility] LABORATORY Neutr Abs (ANC) 10.21 (H) 1.70 - [facility] 6.10 [facility] x10(3)/[place] L LABORATORY Lymphocytes % 7.1 % [facility] LABORATORY Lymphocytes Abs 0.9 0.9 - 3.2 [facility] x10(3)/[facility] LABORATORY Monocytes % 6.5 % [facility] LABORATORY Monocyte Abs 0.8 0.3 - 0.9 [facility] x10(3)/[facility] LABORATORY Eosinophils % 2.7 % [facility] LABORATORY Eosinophils Abs 0.3 0.0 - 0.4 [facility] x10(3)/[facility] LABORATORY Basophils % 0.6 % [facility] LABORATORY Basophils Abs 0.1 0.0 - 0.1 [facility] x10(3)/[facility] LABORATORY Immature Gran [...] City/State/[place] [address] (ABNORMAL) Hemogram (07/29/2017 2:15 PM EST) Analysis Performed At Patho logist Time Signature WBC 12.4 (H) 4.0 - 9.5 [facility] x10(3)/[facility] LABORATORY RBC 4.17 (L) 4.58 - [facility] 5.54 [facility] x10(6)/[facility] LABORATORY Hemoglobin 12.1 (L) 13.7 - [facility] 16.5 gm/dL [facility] LABOR[facility]ORY Hematocrit 38.1 (L) 40.5 - [facility] 48.5 % [facility] LABORATORY MCV 91.4 82.9 - [facility] 93.1 [facility] LABORATORY MCH 29.0 27.5 - [facility] 32.1 pg [facility] LABORATORY MCHC 31.8 (L) 32.0 - [facility] RYAN 35.7 gm/dL [facility] LABORATORY Platelets 204 145 - 357 [facility] x10(3)/[facility] LABORATORY RDWSD 50.5 (H) 36.0 - [facility] 45.0 [facility] LABORATORY RDWCV 15.3 (H) 11.4 - [facility] RYAN 13.8 % [facility] LABORATORY MPV 9.4 7.6 - 12.9 [facility] LABORATORY nRBC % Auto 0.0 % [facility] LABORATORY nRBC Abs Auto 0.000 0.000 - [place] 0.000 [facility] x10(3)/[facility] LABORATORY Specimen Anatomical Collection Method Collection Time Receive d Time (Source) Location / / Volume Laterality Blood specimen 07/29/2017 2:15 PM 018 2:36 (specimen) EST PM EST Resulting Agency Comment Spec In Lab Tamiko Jiménez MD HEMATOLOGY ORDERABLES Performing Organization Address City/State/[place] [address] (ABNORMAL) Prothrombin Time (07/29/2017 [...] Organization Address City/State/ZIP Code Phon e Number [place] [phone] Arterial Duplex Leg, Unil (07/29/2017 11:50 AM EST) Component Value Ref Test Analysis Performed At [facility] Range Method Time Signature VB Text Department: Vascular Surgery Lab VASCUBASE Report Patient: [id number] (GREGORY FATIMA) CPT: 63652 ICD10: Z09;I97.610 Referring Physician: TAMIKO JIMÉNEZ ?? [...] Department: Vascular Surgery Lab VASCUBASE Report Patient: [id number] (GREGORY FATIMA) CPT: 78779 ICD10: I82.441 Referring Physician: TAMIKO JIMÉNEZ ?? [...] he calf. Notification: Marquis Pathak MD (pager #[phone]) was notif ied of the preliminary findings. [...] STAT documented in this encounter Care Teams Tire Retreader Relationship Specialty Start Date End Date Lovely Vicente MD PCP - General 04/16/[address] [place] [address] [address] [place] [address] documented as of this encounter
--- OUTSIDE RECORDS SUMMARY | 2022-05-20 09:38 | XMS_ITS | Encounter Summary ---
:1945 Author Organization [facility] [place] [address] Care Team Providers Name Role Phone Lovely Vicente MD Primary Care Provider Reason for Visit Reason Onset Date Comments Other 07/22/2017 lovenox bridge Encounter Details Date Type Department Care Team Description 07/22/2017 Telephone Cardiology at [facility] [address] Cadena RN Other (lovenox bridge) [place] [address] Social History Tobacco Use Types Packs/Day [...] 4:49 PM EST VAMSI Del Castillo, at [facility], called earlier today with a question re: lovenox bridge for this patient who was recently discharged from [facility] r/t a blood clot. Discharge note faxed to [facility] (fax# [phone], Ph#: [phone]) which contains instructions r/t lovenox bridge as follows: Anticoagulation: on lovenox bridge to therapeutic coumadin for AFib. Goal INR 2-3. At discharge INR=1.5. The lovenox injections can stop when INR >2, coumadin will continue indefinitely. documented in this encounter Plan of Treatment Upcoming Encounters Date Type Specialty Care Team Description 05/28/2022 Appointment Cardiology Zulma Dolan MD [facility] [place], [place] [address] (Wo rk) 05/28/2022 Laboratory Appointment Lab 05/28/2022 Office Visit Cardiology Zulma Dolan MD [facility] [place] [address] Liz Poole PA [facility] [place] [address] 06/10/2022 Office Visit Dermatology Laura Scherer MD [facility] [address] [place], [place] [address] (Wo rk) documented as of this encounter Visit Diagnoses Not on filedocumented in this encounter Care Teams Driver Retraining Instructor Relationship Specialty Start Date End Date Lovely Vicente MD PCP - General 04/16/15 [facility] [address] [place] [address] documented as of this encounter
--- OUTSIDE RECORDS SUMMARY | 2022-05-20 09:38 | XMS_ITS | Encounter Summary ---
:1945 [place] [address] Care Team Providers Name Role Phone Lovely Vicente MD Primary Care Provider Encounter Details Date Type Department Care Team Description 07/16/2017 Telephone Endocrinology at [facility] C Manuela Holliday, [facility] [place] [address] ENDOCRINOLOGY DEPT [phone] [place], [place] [address] (Wo rk) Social History [...] Dolan MD [facility] [place], [place] [address] (Wo rk) 05/28/2022 Laboratory Appointment Lab 05/28/2022 Office Visit Cardiology Zulma Dolan MD [facility] [place] [address] Liz Poole PA [facility] [place] [address] 06/10/2022 Office Visit Dermatology Laura Scherer MD [facility] DR [address] [place], [place] [address] (Wo rk) documented as of this encounter Visit Diagnoses Not on filedocumented in this encounter Care Teams Air Quality Specialist Relationship Specialty Start Date End Date Lovely Vicente MD PCP - General 04/16/[address] [place] [address] documented as of this encounter
--- OUTSIDE RECORDS SUMMARY | 2022-05-20 09:38 | XMS_ITS | Encounter Summary ---
:1945 [place] [address] Care Team Providers Name Role Phone Lovely Vicente MD Primary Care Provider Reason for Visit Reason Comments Hospital Transfer cold foot post CABG Auth/Cert Specialty Diagnoses / Procedures Referred By Contact Refer red To Contact Diagnoses Critical lower limb ischemia Procedures NAYE IPI Referral ID Status Reason Start Date Expiration Date Visits Requ ested Visits Authorized [id number] 1 1 Encounter Details Date Type Department Care Team Description 07/20/2017 Hospital Encounter 4 Herminia Ibarra MD [facility] [place] [address] Critical lower limb [facility] rAik Clement MD [facility] [place] [address] [place] [address] Social History Tobacco Use Types Packs/Day Years [...] home. Important Studies and Lab Data: Labs: [employer] Lab Results Component Value Date INR 1.5 [...] For any problems or questions please call [phone] ZELDA Smith, security monitor Nurse Clinician For issues on weeknights after 5pm and weekends please call [phone] and ask for the Vascular Fellow liquefaction plant operator. General Instructions None Future Appointments and Orders Future Appointments Provider Department Dept Phone 08/04/2017 1:00 PM Daniele Mooney [place] [facility] [phone] 08/04/2017 2:15 PM Arik Clement MD [facility] [phone] 09/07/2017 3:00 PM MAYRA CHACON Lab [facility] [phone] 09/07/2017 4:00 PM Luz Prescott MD [facility] [place] [phone] Future Orders Complete By Expires Arterial Duplex Leg, Unil [VAS32 Custom] 07/27/2017 (Approximate) 01/26/2018 Process Instructions: There is no in-house vascular blood and plasma laboratory assistant available on weeknights (5pm-8am), weekends, or holidays. IF THIS IS A REQUEST FOR AN EMERGENT STUDY DURING THOSE HOURS, please have the senior provider responsible for the patient page the Vascular Surgery Fellow/Senior Resident liquefaction plant operator to discuss options. Scheduling Instructions: Questions: Indication for study/signs & symptoms: Right femoral PSA s/p cardiac cath Question to be answered: bloodflow to PSA Laterality: Right Is there a RIGHT LOWER EXTREMITY graft?: No Lower limb right segments: Common Femoral Is there a stent?: No At which location will this be performed?: [facility] Referral to Home Health - at DISCHARGE [[id number] CPT(R)] As directed Process Instructions: Scheduling Instructions: Comments: DOCUMENTATION FOR VNA SERVICES (INCLUDING THOSE PATIENTS WITH MEDICARE COVERAGE REQUIRING HOME VNA SERVICES AND/OR HOSPICE SERVICES) PATIENT'S LOCATION: Gregory Fatima [address] [place] [address] [place] [phone] (home) Cell: Telephone Information: Airline Reservationist's Name: self In discussion with the attending physician, it is certified that this patient is under their care and that they, or a Nurse Practitioner,Clinical Nurse specialist or Physician Hand Stonecutter who is working directly with them, [...] [facility] ([facility] [place] [facility]-is in [place] PHONE: [phone] FAX: [phone] Start of care: 24- 48 hours FOR [...] Lovely Vicente MD [address] [facility] [place] / [place] [id number] All VNA agencies which cover the area [...] For any problems or questions please call [phone] ZELDA Smith, security monitor Nurse Clinician For issues on weeknights after 5pm and weekends please call [phone] and ask for the Vascular Fellow liquefaction plant operator. documented in this encounter Medications at [...] RN - 07/20/2017 2:53 PM EST The patient/field service representative has been provided a list of Home Health Agencies/DME vendors which serve their preferred geographic area. A letter describing our affiliations was reviewed with them and theywere educated about their right to choose where referrals are placed. Patient requests referral to [facility]. PHONE: [phone] FAX: [phone]. Expected date of discharge: 07/20/2017 . Referral routed to the [employer] Developer for matching with agency/vendor and to provide any required information. Naty Pulliam RN - 07/20/2017 11:37 AM EST The patient/field service representative has been provided a list of Home Health Agencies/DME vendors which serve their preferred geographic area. A letter describing our affiliations was reviewed with them and theywere educated about their right to choose where referrals are placed. Patient requests referral to [facility] ([facility] [place] [facility]- is in [facility] PHONE: [phone] FAX: [phone]. Expected date of discharge: 07/20/2017 . Referral routed to the [employer] Bi Developer for matching with agency/vendor and to provide any required information. Katina Pulliam RNlubrication technician Janneth Lee MD - 07/20/2017 7:29 AM [...] [facility] ??? PRO CABG, ARTERIAL, SINGLE N/A 07/07/2017 @CABG, USING ARTERIAL GRAFT;SINGLE ARTERIAL GRAFT (WRVU 33.75) performed by Yuan Retana MD at [facility] MAIN OR ??? PRO CABG, ARTERY-VEIN, TWO N/A 07/07/2017 @CABG, TWO VENOUS GRAFTS & ARTERIAL GRAFT (WRVU 7.93) performed by Yuan Retana MD at [facility] MAIN OR ??? PRO COLONOSCOPY, REMV LESN, SNARE 01/16/2014 COLONOSCOPY, POLYPECTOMY, REMOVAL LESION BY SNARE performed by Nohemi Jaimes MD at [facility] ENDOSCOPY ??? PRO ENDOSCOPY W/VIDEO-ASST VEIN HARVEST, CABG Right 07/07/2017 ENDOSCOPIC HARVEST VEIN(S) FOR CABG (WRVU 0.31) performed by Yuan Retana MD at [facility] MAIN OR ??? PRO THYROIDECTOMY 03/28/2013 THYROIDECTOMY, TOTAL OR COMPLETE performed by Manny Mcknight MD at [facility] MAIN OR Functional Status/Social Hx: Social [...] -ISS -pain control Discussed with Vascular Fellow liquefaction plant operator. Chris Valadez MD PGY2 Pager [phone] documented in this encounter ED Notes Annita Reaves MD - 07/20/2017 3:15 PM EST Emergency Department Gregory Fatima is a 72 y.o. male who presents to [facility] with arterial thrombosis. History of Present Illness [...] Days: [facility] 07/05/17 Anticipated Length Of Stay (If known): [...] Health/Prescription Coverage: Primary Insurance: MEDICARE Secondary Insurance: [employer] [facility] Prescription Coverage: See above Preferred Pharmacy: [facility] Other: N/A Primary Care Provider: Lovely Vicente MD [phone] Patient/Caregiver Goals of Treatment: Patient plans to return home when medically ready Potential Needs for Transition of Care: Rehab/SNF: N/A Home Health: [facility] ([facility] [place] [facility]-is in [place] PHONE: [phone] FAX: [phone] DME: N/A Dialysis: N/A Community Resources: N/A Transportation: Patient family will transport Other: N/A Anticipated Barriers to Discharge/Special Considerations: None Plan: Patient plans to return home with home health services when medically ready A member of the Care Management team will continue to monitor progress, follow for continuity of care and assist with transition of care planning. Naty Pulliam, RN Pager: [phone] ED Triage - Rayna Weir RN - 07/20/2017 12:28 AM EST Pt transferred from [facility] for blue right foot and painful toes. [...] Dolan MD [facility] [address] [place], [place] [address] (Wo rk) 05/28/2022 Laboratory Appointment Lab 05/28/2022 Office Visit Cardiology Zulma Dolan MD [facility] [place] [address] Liz Poole PA [facility] [place] [address] 06/10/2022 Office Visit Dermatology Laura Scherer MD [facility] DR TEJA GR-DERMAT [place], [place] [address] (Wo rk) documented as of this encounter Procedures Procedure Name Priority Date/Time Associated Comments Diagnosis INSTRUCTIONAL SYSTEMS DESIGNER SCAN 09/02/2017 12:00 Res ults for this [...] TO LAB EST procedure are i n ([facility]) the [...] documented in this encounter Results SCAN DOC: INSTRUCTIONAL SYSTEMS DESIGNER (09/02/2017 12:00 AM EST) Narrative 09/02/2017 12:00 AM EST This result has an attachment that is no t available. Ordered by an unspecified provider. Scanning Provider MEDIA MGR SCAN EXT ORDR/RSLT POCT Glucose (07/20/2017 12:04 PM EST) P athologist Signature POC Glucose 189 65 - 199 [facility] mg/dL [facility] Comment: Supplemental ranges: <140 mg/dL before meals <180 mg/dL all other times of the day Specimen Anatomical Collection Method Collection Time Receive d Time (Source) Location / / Volume Laterality Blood specimen 07/20/2017 12:04 7 (specimen) PM EST 12:04 PM EST Arik Clement MD POINT OF CARE TEST ORDERABLE S Performing Organization Address City/State/[place] [address] (ABNORMAL) Differential, Automated (07/20/2017 10:34 AM EST) Patholo gist Method Time Signature Neutrophils % 84.3 % [facility] Neutr Abs (ANC) 14.27 (H) 1.70 - [facility] 6.10 [facility] x10(3)/[facility] LABORATORY Lymphocytes % 5.6 % [facility] Lymphocytes Abs 1.0 0.9 - 3.2 [facility] x10(3)/[facility] LABORATORY Monocytes % 6.1 % [facility] Monocyte Abs 1.0 (H) 0.3 - 0.9 [facility] x10(3)/[facility] LABORATORY Eosinophils % 2.4 % [facility] Eosinophils Abs 0.4 0.0 - 0.4 [facility] x10(3)/[facility] LABORATORY Basophils % 0.5 % [facility] Basophils Abs 0.1 0.0 - 0.1 [facility] x10(3)/[facility] LABORATORY Immature Gran % 1.10 % [facility] Comment: Immature granulocytes(IG's)percentage an d absolute count will include metamyelocytes, myelocytes, and promyelo cytes. Blood smears from CBCs yielding IG's will be scanned manually for concor dance. If this scan disagrees with the automated IG or if promyelocytes are not ed, a manual differential will be performed. Melisa Gran Abs 0.19 (H) 0.00 - 0.04 x10(3)/[facility] LABORATORY Specimen Anatomical Collection Method Collection Time Receive d Time (Source) Location / / Volume Laterality Blood specimen 07/20/2017 10:34 7 (specimen) AM EST 10:39 AM EST Resulting Agency Comment Spec In Lab Arik Clement MD HEMATOLOGY ORDERABLES Performing Organization Address City/State/[place] [address] (ABNORMAL) Hemogram (07/20/2017 10:34 AM EST) Analysis Performed At Patho logist Time Signature WBC 17.0 (H) 4.0 - 9.5 [facility] x[facility] LABORATORY RBC 3.70 (L) 4.58 - [facility] 5.54 [facility] x10(6)/[facility] LABORATORY Hemoglobin 10.8 (L) 13.7 - [facility] 16.5 gm/dL [facility] Hematocrit 33.4 (L) 40.5 - [facility] 48.5 % [facility] MCV 90.3 82.9 - [facility] 93.1 [facility] LABORATORY MCH 29.2 27.5 - [facility] RYAN 32.1 pg [facility] MCHC 32.3 32.0 - [facility] RYAN 35.7 gm/dL [facility] Platelets 211 145 - 357 [facility] x10(3)/[facility] LABORATORY RDWSD 49.1 (H) 36.0 - [facility] RYAN 45.0 [facility] LABORATORY RDWCV 14.7 (H) 11.4 - [facility] RYAN 13.8 % [facility] MPV 9.2 7.6 - 12.9 [facility] nRBC % Auto 0.0 % [facility] nRBC Abs Auto 0.000 0.000 - [place] RYAN 0.000 [facility] x10(3)/[facility] LABORATORY Specimen Anatomical Collection Method Collection Time Receive d Time (Source) Location / / Volume Laterality Blood specimen 07/20/2017 10:34 7 (specimen) AM EST 10:39 AM EST Resulting Agency Comment Spec In Lab Arik Clement MD HEMATOLOGY ORDERABLES Performing Organization Address City/State/[place] [address] (ABNORMAL) APTT (07/20/2017 10:34 AM EST) athologist Signature PTT 79 (H) 25 - 35 sec [place] [...] Clement MD HEMATOLOGY ORDERABLES Performing Organization Address City/[facility]/[place]IP [place] [address] POCT Glucose (07/20/2017 7:41 AM EST) athologist Signature POC Glucose 174 65 - 199 [facility] mg/dL [facility] Comment: Supplemental ranges: <140 mg/dL before meals <180 mg/dL all other times of the day Specimen Anatomical Collection Method Collection Time Receive d Time (Source) Location / / Volume Laterality Blood specimen 07/20/2017 7:41 AM 017 7:41 (specimen) EST AM EST Arik Clement MD POINT OF CARE TEST ORDERABLE S Performing Organization Address City/[facility]/ZIP Code Phon e Number [address] JULIAN, legs, multiple levels (07/20/2017 7:33 AM EST) Component Value Ref Test Analysis Performed At Patholo gist Range Method Time Signature VB Text Department: Vascular Surgery Lab VASCUBASE Report Patient: [id number] (GREGORY FATIMA) CPT: 22410 ICD10: I75.021;I99.8 Referring Physician: ARIK CLEMENT ?? Indications: s/p cardiac cath, right groin access, right rebecca e toes, ? peripheral perfusion Diabetes mellitus: Yes ICD10 Diagnosis Code: I75.021, I99.8 Findings: Right ?Pressure (mm Hg) ?? JUILAN ??Waveform ? TBI ?? Brachial Artery ?140 [...] Performed At [facility] Range Method Time Signature VB Text Department: Vascular Surgery Lab VASCUBASE Report Patient: [id number] (GREGORY FATIMA) CPT: 97170 ICD10: I97.610;I99.8 Referring Physician: ARIK CLEMENT ?? [...] Signature POC Glucose 199 65 - 199 [facility] mg/dL [facility] Comment: Supplemental ranges: <140 mg/dL before meals <180 mg/dL all other times of the day Specimen Anatomical Collection Method Collection Time Receive d Time (Source) Location / / Volume Laterality Blood specimen 07/20/2017 3:41 AM 017 3:41 (specimen) EST AM EST Arik Clement MD POINT OF CARE TEST ORDERABLE S Performing Organization Address City/[facility]/ZIP [facility] [place] [address] Lactate, whole blood, send to lab (Leb/CGP) (07/20/2017 2:25 AM EST) athologist Signature Lactate WB 2.0 0.5 - 2.2 [facility] mmol/L [facility] Specimen Anatomical Collection Method Collection Time Receive d Time (Source) Location / / Volume Laterality Blood specimen Venous Draw / 07/20/2017 2:25 AM 2016 2:37 (specimen) Unknown EST AM EST Resulting Agency Comment Spec In Lab Zulma Samuel MD CHEMISTRY ORDERABLES Performing Organization Address City/[facility] Code Phon e Number [address] (ABNORMAL) APTT (07/20/2017 2:25 AM EST) athologist Signature PTT 36 (H) 25 - 35 sec [place] [...] Reaves MD HEMATOLOGY ORDERABLES Performing Organization Address City/[facility]/[place] [address] (ABNORMAL) Prothrombin Time (07/20/2017 [...] Organization Address City/State/[place] [address] (ABNORMAL) Basic Metabolic Panel (non-fasting) (07/20/2017 2:25 AM EST) P athologist Signature Glucose Lvl 187 65 - 199 [facility] mg/dL [facility] Comment: Diabetes: [...] HOSPITAL LABORATORY Comment: Specimen hemolyzed. Called by: [facility], Read back by: Chitra Orantes, Date/Time:07/20/17 03:05. Please note: ??Patients with WBC >100,00 0 may have falsely elevated Potassium levels. ??For accurate Potassium quantif ication in these patients send serum separator tube (gold top) for subsequent determinations. ??Contact the Clinical Chemistry Laboratory if there are any qu estions. Chloride 92 (L) 98 - 107 mmol/L [place] [...] or in patients with acute kidney failure. [email or web address] [email or web address] Specimen Anatomical Collection Method Collection Time Receive d Time (Source) Location / / Volume Laterality Blood specimen 07/20/2017 2:25 AM 017 2:33 (specimen) EST AM EST Resulting Agency Comment Spec In Lab Annita Reaves MD CHEMISTRY ORDERABLES Performing Organization Address City/State/ZIP Code Phon e Number [place] [id number] documented in this encounter [...] Group 2) 0-8,000 Units, Intravenous, BOLUS PER [facility] PROTOCOL, Starting Wed07/20/17 at 0424, Until Wed07/20/17 [...]
Routine documented in this encounter Care Teams Timber Surveyor Relationship Specialty Start Date End Date Lovely Vicente MD PCP - General 04/16/[address] [place] [address] documented as of this encounter
--- OUTSIDE RECORDS SUMMARY | 2022-05-20 09:38 | XMS_ITS | Encounter Summary ---
:1945 [place] [address] Care Team Providers Name Role Phone Lovely Vicente MD Primary Care Provider Reason for Visit Reason Onset Date Comments Questions 07/16/2017 fluid retention Encounter Details Date Type Department Care Team Description 07/16/2017 Telephone Cardiology at [facility] Martha Comer, Questions ([facility] RN retention ) [place] [address] Social History Tobacco Use Types Packs/Day [...] the direct number to the HF team ([phone]). She is aware of his appt with CATIA DESIGNER Hans on 07/21/17 and the need for labs prior to that visit. verbalized good understanding of the current POC. documented in this encounter Plan of Treatment Upcoming Encounters Date Type Specialty Care Team Description 05/28/2022 Appointment Cardiology Zulma Dolan MD [facility] [place], [place] [address] (Wo rk) 05/28/2022 Laboratory Appointment Lab 05/28/2022 Office Visit Cardiology Zulma Dolan MD [facility] [place] [address] Liz Poole PA [facility] [place] [address] 06/10/2022 Office Visit Dermatology Laura Scherer MD [facility] DR TEJA GR-DERMAT [place], [place] [address] (Wo rk) documented as of this encounter Visit Diagnoses Not on filedocumented in this encounter Care Teams Campaign Developer Relationship Specialty Start Date End Date Lovely Vicente MD PCP - General 04/16/[address] [place] [address] documented as of this encounter
--- OUTSIDE RECORDS SUMMARY | 2022-05-20 09:38 | XMS_ITS | Encounter Summary ---
:1945 Author Organization [facility] [place] [address] Care Team Providers Name Role Phone Lovely Vicente MD Primary Care Provider Encounter Details Date Type Department Care Team Description 07/24/2017 Telephone Vascular Surgery Melba Bob [facility] [place] [address] [facility] [phone] VASCULAR SURGERY [place], [place] [address] (Wo rk) Social History Tobacco [...] was discharged on Coumadin. ??He presented [facility] on 07/20 with mottled [...] Dolan MD [facility] Dr [place] [address] (Wo rk) 05/28/2022 Laboratory Appointment Lab 05/28/2022 Office Visit Cardiology Zulma Dolan MD [facility] [place] [address] Liz Poole PA [facility] [place] [address] 06/10/2022 Office Visit Dermatology Laura Scherer MD [facility] [address] TEJA GR[address], [place] [address] (Wo rk) documented as of this encounter Visit Diagnoses Not on filedocumented in this encounter Care Teams Tray Worker Relationship Specialty Start Date End Date Lovely Vicente MD PCP - General 04/16/[address] [place] [address] documented as of this encounter
--- OUTSIDE RECORDS SUMMARY | 2022-05-20 09:39 | XMS_ITS | Encounter Summary ---
:1945 Author Organization [facility] [place] [address] Care Team Providers Name Role Phone Lovely Vicente MD Primary Care Provider Reason for Referral Consultation (Routine) - Closed Specialty Diagnoses / Referred By Contact Referred To Contact Procedures Cardiac Rehabilitation Diagnoses S/P CABG x 3 Yuan Webber, Cardiac Rehab, [address] [place] CARDIOTHORACIC [address] [place] [address] Referral ID Status Reason Start Date Expiration Date Visits V isits Requested Authorized [id number] Closed Consult, 07/14/2017 01/10/2018 36 36 Test & Treat Reason for Visit Auth/Cert Specialty Diagnoses / Procedures Referred By Contact Refer red To Contact Diagnoses STEMI (ST elevation myocardial infarction) NSTEMI STEMI Procedures CARDIAC CATHETERIZATION NAYE IPI Referral ID Status Reason Start Date Expiration Date Visits Requ ested Visits Authorized [id number] 1 1 Encounter Details Date Type Department Care Team Description 07/05/2017 - Hospital Encounter Cardiac Special Daphne Shahid MD [facility] [address] Non-ST elevation myocardial infarction ( NSTEMI); 07/14/2017 Care Unit Yuan Preciado MD [facility] DR [place] [address] S/P CABG x 3 [place] [id number] Social History Tobacco Use Types Packs/Day Years [...] , @ 1:20p Patient to follow-up with Developer Support Engineer/heart failure team in one week. An appointment will be made for you. You may call [phone] Patient to follow-up with Cardiac Surgery, Dr. Yuan Webber, in ~ 4 weeks with CXR, EKG. Inpatient Provider Contact Information: [facility] Section of Cardiac Surgery [facility] [place] [address] FAX [phone] Discharge Diagnoses (Hospital Problems) Primary Diagnoses: CAD [...] 33.75) performed by Yuan Webber MD at [facility] MAIN OR ??? PRO CABG, ARTERY-VEIN, TWO N/A 07/07/2017 @CABG, TWO VENOUS GRAFTS & ARTERIAL GRAFT (WRVU 7.93) performed by Yuan Webber MD at [facility] MAIN OR ??? PRO COLONOSCOPY, REMV LESN, SNARE 01/16/2014 COLONOSCOPY, POLYPECTOMY, REMOVAL LESION BY SNARE performed by Nohemi Jaimes MD at [facility] ENDOSCOPY ??? PRO ENDOSCOPY W/VIDEO-ASST VEIN HARVEST, CABG Right 07/07/2017 ENDOSCOPIC HARVEST VEIN(S) FOR CABG (WRVU 0.31) performed by Yuan Webber MD at [facility] MAIN OR ??? PRO THYROIDECTOMY 03/28/2013 THYROIDECTOMY, TOTAL OR COMPLETE performed by Manny Mcknight MD at [facility] MAIN OR Prior To Admission Medications Prescriptions Prior to Admission Medication Sig Dispense Refill Last Dose ??? levothyroxine (SYNTHROID) 175 mcg Tablet Take 1 tablet by mouth daily. 90 tablet 3 07/05/2017 [id number] ??? ascorbic acid, vitamin C, (VITAMIN C) [...] Course: Gregory Hoang was admitted to [facility] on 07/05/2017 via the Cardiology Service. During his hospital course, he was taken emergently to the tutorial laboratory supervisor for an ongoing STEMI. An IABP [...] not take or discontinue any prescription or eebr-fqn-ysfsuxm medications without asking your doctor or pharmacist [...] day to have your insulin doses adjusted. [facility] Endocrine clinic office Discharge Instructions: Call your doctor if: You have a fever of greater than 101 degrees, shaking chills, if you develop redness or drainage from your incision sites, or if you have questions. Please call your surgeon's office if you have any discharge or drainage from your chest incision. Your surgeon, Dr. Yuan Webber and/or the Cardiac Surgery Physician Brick Chimney Supervisor Team may be reached at . [...] Dr. Yuan Webber. You may use a [place] Track or treadmill but avoid any pulling [...] with the surgeon. Do not ride motorcycles, [employer]'s tractors or horses. Avoid the use of [...] should resume a low fat, low cholesterol, [place] Heart Association Diet/Diabetic diet. Driving: No driving [...] , @ 1:20p Patient to follow-up with Developer Support Engineer/heart failure team in one week. Appointment will be made for you. You may call [phone] Patient to follow-up with Cardiac Surgery, Dr. Yuan Webber, in ~ 4 weeks with CXR, EKG. Cardiac Rehabilitation: Gregory Hoang was seen today regarding participation in the outpatient Phase 2 Cardiac Rehabilitation at [facility]. The patient agrees to a referral to this program. The referral will be sent at discharge and the patient should be contacted by the Program within 1- 2 weeks from discharge. ?? Future Appointments and Orders Future Appointments Provider Department Dept Phone 09/07/2017 3:00 PM LAB, THREE L Lab 3L [facility] [phone] 09/07/2017 4:00 PM Luz Presoctt MD Endocrinology at [facility] [phone] Future Orders Complete By Expires EKG 12 Lead [EKG1 Custom] 08/14/2017 02/13/2018 Process Instructions: Scheduling Instructions: Questions: Which location will this be performed?: [facility] Is a rhythm strip needed?: No If EKG Reason is Pre-op Evaluation, indicate diagnosis for surgery.: XR Chest PA & Lateral (Generic) [[id number] Custom] 08/14/2017 02/13/2018 Process Instructions: Scheduling Instructions: Questions: Where will study be performed?: [facility] Portable exam?: Reason for exam and clinical history: CABG x 3 Other pertinent information: Stat read required?: Date of injury if applicable: Requested Time: Referral to Cardiac Rehab [TPD662 Custom] As directed Process Instructions: If no progress note charted, please enter Clinical details in comments. Scheduling Instructions: Questions: My question or request is: s/p CABG. Cardiac rehab at [facility] Referral to Home Health - at DISCHARGE [[id number] CPT(R)] As directed Process Instructions: Scheduling Instructions: Comments: DOCUMENTATION FOR VNA SERVICES (INCLUDING THOSE PATIENTS WITH MEDICARE COVERAGE REQUIRING HOME VNA SERVICES AND/OR HOSPICE SERVICES) PATIENT'S LOCATION: Gregory Hoang [address] [place] [address] [place] [id number] (home) Telephone Information: Work And Family Life Consultant's Name: self In discussion with the attending physician, it is certified that this patient is under their care and that they, or a Nurse Practitioner, or Physician Brick Chimney Supervisor who is working directly with them, [...] [facility] ([facility] [place] [facility] in [place] PHONE: [phone] FAX: [phone] RN orders: Cardiopulmonary assessment, incisional assessment, assess vital signs, assessment of rehab progress, medication management and effectiveness, home safety evaluation. Please draw INR if indicated and send result to:Dr Vicente [phone] PT ORDERS: Continue rehab for endurance, gait stability and strength with mobility and transfers. Home safety evaluation. Home exercise program if appropriate. Start of Care Date:24-48 hours after discharge SPECIAL INSTRUCTIONS: For any follow up questions, needs, or issues please call the Cardiac Surgery Office at [phone] FOR MEDICARE ONLY: (please delete this section [...] 07/17/2017 Signed: Martha Teague APRN [facility] Section of Cardiac Surgery [facility] [place] [address] FAX [phone] Date: 07/14/2017 CC: MD Ivania Cr Betsy, PA [address] [place] [phone] documented in this encounter Discharge Instructions Discharge [...] day to have your insulin doses adjusted. [facility] Endocrine clinic office Patient InstructionsStMartha [...] not take or discontinue any prescription or yfqf-ztt-eggoxeq medications without asking your doctor or pharmacist [...] juice or regular (not diet) soda 6 Micro Interventional Devicess small box of raisins 4 glucose tablets [...] day to have your insulin doses adjusted. [facility] Endocrine clinic office ? Discharge [...] Yuan Webber and/or the Cardiac Surgery Physician Brick Chimney Supervisor Team may be reached at . [...] Dr. Yuan Webber. You may use a [place] Track or treadmill but avoid any pulling [...] with the surgeon. Do not ride motorcycles, [employer] tractors or horses. Avoid the use of [...] should resume a low fat, low cholesterol, [place] Heart Association Diet/Diabetic diet. ?? Driving: No [...] @ 1:20p ?? Patient to follow-up with Developer Support Engineer/heart failure team in one week. An appointment has been made for you, you can call [phone] ?? Patient to follow-up with Cardiac Surgery, Dr. Yuan Webber, in ~ 4 weeks with CXR, EKG. ? Cardiac Rehabilitation: Gregory Hoang??was seen today regarding participation in the outpatient Phase 2 Cardiac Rehabilitation at [facility]. ?? The patient agrees to a referral to this program.? The referral will be sent at discharge and the patient should be contacted by the Program within 1- 2 weeks from discharge. ? Future Appointments and Orders Future Appointments Provider Department Dept Phone ?? 09/07/2017 3:00 PM LAB, THREE L Lab 3L [facility] [phone] ?? 09/07/2017 4:00 PM Luz Prescott MD Endocrinology at [facility] [phone] Future Orders Complete By Expires ?? EKG 12 Lead [EKG1 Custom] 08/14/2017 02/13/2018 ?? Process Instructions: ? Scheduling Instructions: ? Questions: ? Which location will this be performed?: [facility] ?? Is a rhythm strip needed?: No ?? If EKG Reason is Pre-op Evaluation, indicate diagnosis for surgery.: ?? XR Chest PA & Lateral (Generic) [[id number] Custom] 08/14/2017 02/13/2018 ?? Process Instructions: ? Scheduling Instructions: ? Questions: ? Where will study be performed?: [facility] ?? Portable exam?: ?? Reason for exam and clinical history: CABG x 3 ?? Other pertinent information: ?? Stat read required?: ?? Date of injury if applicable: ?? Requested Time: ?? Referral to Cardiac Rehab [GDT638 Custom] As directed ? Process Instructions: ?? If no progress note charted, please enter Clinical details in comments. ?? Scheduling Instructions: ? Questions: ? My question or request is: s/p CABG. Cardiac rehab at [facility] ? Arrangements for VNA/home care: As above. [...] RN - 07/14/2017 2:34 PM EST The patient/automotive leasing sales representative has been provided a list of Home Health Agencies/DME vendors which serve their preferred geographic area. A letter describing our affiliations was reviewed with them and theywere educated about their right to choose where referrals are placed. Patient requests referral to [facility] PHONE: [phone] FAX: [phone] Expected date of discharge: 07/14 Referral routed to the Manager Of Maintenance for matching with agency/vendor and to [...] day to have your insulin doses adjusted. [facility] Endocrine clinic office Kathie Carrera APRN [facility] Endocrinology Diabetes Management Pager [phone] 20 minutes of this 35 minute visit was spent with the patient in counseling on diabetes and treatment plan, reviewing all glucose and insulin data as well as relevant laboratory results with the patient, and coordination of care on the inpatient unit including nursing and primary team. 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 A letter describing our affiliations was reviewed with them and theywere educated about their right to choose where referrals are placed. Patient requests referral to : Yasmani [facility] ([facility] [place] [facility]-is in [place] PHONE: [phone] FAX: [phone]. Expected date of discharge: 07/14/17 Referral routed to the Manager Of Maintenance for matching with agency/vendor and to [...] hours. If BG remains greater than 240, ufcmrd61 units (no more than three times) &??call [...] Will continue to follow Katerin Azul APRN [facility] Endocrinology Diabetes Management Pager [phone] minutes of this 25 minute visit [...] of infiltration/extravasation Discussed plan of care with ROAD ROLLER ENGINEER and RN. Elevate exrtemity and apply [...] measuring tape and identifier in the photo) VETERINARY PRACTITIONER CARING FOR THIS PATIENT WILL CONTINUE TO [...] measuring tape and identifier in the photo) VETERINARY PRACTITIONER CARING FOR THIS PATIENT WILL CONTINUE TO [...] regard to both infiltrates addressed by this com writer.All of Mr. Hoang's responses were entirely appropriate. Images of infiltrates attached here. Martha Sharp APRN - 07/13/2017 8:01 AM EST Cardiac Surgery Progress Note: ID: [id number] 72 year old male POD#6 s/p CABGx3 [...] discharge. ?? I have met with the patient/automotive leasing sales representative to discuss discharge planning needs. I have provided the [facility], Office of Care Management letter from the Cloth Doubling Machine Operator pertaining to rehab referrals. I have also provided a letter describing our affiliations within the [facility] and educated them about their right to choose where referrals are placed. ?? I reviewed the different levels of rehab including SNF, swing, acute and LTAC with the patient/automotive leasing sales representative. ?? The patient/automotive leasing sales representative has been provided a list of facilities within their preferred geographic area. ?? I have requested that the patient/automotive leasing sales representative provide at least three choices for referral. ?? The patient/automotive leasing sales representative have requested referrals to: ?? 1. . ?? 2. [facility] ?? 3. More to be entered ?? Expected date of discharge: 07/14 Note routed to Manager Of Maintenance who will communicate referrals to facilities [...] hours. If BG remains greater than 240, ofclen50 units (no more than three times) & [...] continue to follow Katerin Patel. STACIE Azul [facility] Endocrinology Diabetes Management Pager [phone] [...] AM EST Cardiac Surgery Progress Note: ID: [id number] 72 year old male POD#5 s/p CABGx3 [...] PM EST Patient arrived from [facility]. VSS. MSI dressing pulled off with [...] AM EST Cardiac Surgery Progress Note: ID: [id number] 72 year old male POD#4 s/p CABGx3 [...] hours. If BG remains greater than 240, tyqxqz05 units (no more than three times) & [...] AM EST Cardiac Surgery Progress Note: ID: [id number] 72 year old male POD#3 s/p CABGx3 [...] Gas) No results found for: PHART, PO2ART, XVE3SMF Assessment/Plan: 72 year old male POD#3 s/p [...] Encounter Note Patient Name: Gregory Hoang : [id number] MR#: [id number] Admit Date: 07/05/2017 4:20 PM Hospital Day 4 days Narrative: Patient was sitting in chair, hugging heart pillow, opened his eyes, nodding to come into room Assessment: Patient was sleepy. Intervention and Outcome: Introduced guitar instructor services and patient reached his hand out in appreciation. Follow-up: Administrative Coordinator remains available for support. Time in [...] 10:45 AM EST Report given to staffing recruiter to cover care Maddison Cee PA - 07/09/2017 9:00 AM EST Cardiac Surgery Progress Note: ID: [id number] 72 year old male POD#2 s/p CABGx3 [...] Surgeon on rounds. Signed: STEPHANIE Iqbal [facility] Section of Cardiac Surgery Date: 07/09/2017 Magnolia Santiago [facility] - 07/09/2017 1:33 AM EST [...] when IABP d/c'ed. Gretchen Carolina, PT Pager [phone] Maddison Cee PA - 07/08/2017 11:27 AM EST Cardiac Surgery Progress Note: ID: [id number] 72 year old male POD#1 s/p CABGx3 [...] Surgeon on rounds. Signed: STEPHANIE Iqbal [facility] Section of Cardiac Surgery Date: 07/08/2017 [...] unit. NICK SEGAL MD 07/08/2017 Jay Munoz [facility] - 07/08/2017 4:33 AM EST [...] in place in R femoral. No hematoma. COMPRESSED GAS TESTER- Intact Psych- Anxious Skin- Dry, no [...] intact. IABP in place in R femoral. COMPRESSED GAS TESTER- Intact Psych- Anxious Skin- Dry, no [...] note for details. DAPHNE SHAHID MD Pager [phone] Jet Mckenna MD - 07/05/2017 6:48 PM EST Preliminary Cardiac Catheterization Procedure Note: Procedure(s) performed: Left heart cath, IABP insertion Access: Right LINSEED OIL PRESS TENDER-->8fr IABP A time-out was conducted prior to [...] effect. Heparin gtt maintained. Pt transferred to tutorial laboratory supervisor. documented in this encounter H&P Notes Daphne Shahid MD - 07/05/2017 6:08 PM EST CARDIOLOGY HISTORY & PHYSICAL EXAM Date of Admission: 07/05/2017 ( Hospital Day 0 days ) Responsible Attending: Daphne Shahid MD PCP: Lovely Vicente MD PCP#: [phone] Patient Active Problem List Diagnosis Code ??? [...] No significant valvular disease. Taken to the tutorial laboratory supervisor urgently for ongoing STEMI. [facility] Labs: INR 1.0 WBC 5.88 Hgb 12.9 [...] monitor I/O - s/p lasix in the tutorial laboratory supervisor, redose to aim net neg 1L [...] - ISS - hold metformin - f/u [facility] #Home Meds - continue levothyroxine 175mcg - CPAP at night # Routine - DVT PPx: heparin drip - Diet: NPO - Code Status: FULL - Dispo: [facility] Cedric Bey MD Internal Medicine, PGY-2 Cardiology S1, Team Pager # [phone] CARDIOLOGY ATTENDING NOTE Patient: Gregory Hoang Date [...] amenable for PCI. DAPHNE SHAHID MD Pager [phone] documented in this encounter Miscellaneous Notes Consult Note - Daphne Shahid MD - 07/14/2017 11:46 AM EST Heart Failure Service Inpatient Consult Note Gregory Hoang Date of : 1945 Age: 72 y.o. Today's date: 07/14/17 PCP: Lovely Vicente MD STEWARD/STEWARDESS LOUNGE: None Place of Service: [facility] [...] 33.75) performed by Yuan Webber MD at [facility] MAIN OR ??? PRO CABG, ARTERY-VEIN, TWO N/A 07/07/2017 @CABG, TWO VENOUS GRAFTS & ARTERIAL GRAFT (WRVU 7.93) performed by Yuan Webber MD at [facility] MAIN OR ??? PRO COLONOSCOPY, REMV LESN, SNARE 01/16/2014 COLONOSCOPY, POLYPECTOMY, REMOVAL LESION BY SNARE performed by Nohemi Jaimes MD at [facility] ENDOSCOPY ??? PRO ENDOSCOPY W/VIDEO-ASST VEIN HARVEST, CABG Right 07/07/2017 ENDOSCOPIC HARVEST VEIN(S) FOR CABG (WRVU 0.31) performed by Yuan Webber MD at [facility] MAIN OR ??? PRO THYROIDECTOMY 03/28/2013 THYROIDECTOMY, TOTAL OR COMPLETE performed by Manny Mcknight MD at [facility] MAIN OR Outpt Meds: Current Outpatient [...] following studies: EKG 07/14/17: NSR 75 bpm, TITLE ONE KINDERGARTEN TEACHER anterior infarct, LAD CXR 07/11/17: FINDINGS: Sternotomy wires. The patient has been extubated, left chest tube removed, and [place]-Suzi catheter removed since the 07/07/2017 study. Atelectasis [...] was discussed with Zehra. Jaden Kelley MD Phytopathology Teacher Pager [phone] CARDIOLOGY ATTENDING NOTE Patient: Gregory Hoang Date [...] heart failure clinic. DAPHNE SHAHID MD Pager [phone] Plan of Care - Alden Chavarria, SATELLITE TELEVISION INSTALLER - 07/14/2017 11:35 AM EST Problem: Patient [...] Discharge Disposition: home with assist Alden Chavarria, SATELLITE TELEVISION INSTALLER Pager: [phone] Inpatient Physical Therapy Problem: Acute Rehab Services [...] sit/sit to supine -- Bed Mobility Goal, Blossom Level supervision required -- Bed Mobility Goal, [...] - 3 days -- Gait Training Goal, [place]oss[place] Level supervision required -- Gait Training Goal, [...] days -- Transfer Training Goal, Activity Type dda-vt-bvxck/cgviv-tw-kki;lqs-pw-zarox/eqkle-yb-wni;toilet -- Transfer Train Goal, Blossom Level supervision required -- Transfer Training Goal, [...] keeping present for 2 days per family. Teasel Setter noted of frustrations, house keeping sent to room. Patient offered showered twice, refused. at bedside, frustrated that shower not complete, informed that patient had refused several times. requesting to see ACCOUNT ADVISOR, paged sent to Martha, will come to bedside (middle of consult). not willing to wait, Martha notified that family had gone home. Encouraged to come for morning rounds a t 8am. Diabetes team at bedside - insulin adjustments made. Call cabello in reach. Continue to monitor. PLAN MOVING FORWARD: Ambulate, dressing changes BID, Please change drsg at 4am per Martha ACCOUNT ADVISOR request. INDIVIDUALIZED FALL PREVENTION INTERVENTIONS: Patient-specific fall [...] levels on the lower side, 60ml of Emmalena juice given after a FS of 80. [...] Conf 07/13/17 0502 Interdisciplinary Rounds/Family Conf Participants classification case manager;dietitian/nutrition services;nursing;occupational therapy;patient;pharmacy;physical therapy;physician Plan of [...] Anticipated Discharge Disposition: home with assist Pager: [phone] CLARISSA SEGAL, PT 07/12/2017 Physical Therapy Rehabilitation [...] to sit/sit to supine Bed Mobility Goal, Blossom Level supervision required Bed Mobility Goal, Additional Goal adheres to psternal precautions for transfer Goal: Gait Training Goal Stand Alone Therapy Goal Outcome: Ongoing (Interventions Implemented as Appropriate) 07/12/17 1225 Gait Training Goal Gait Training Goal, Date Established 07/12/17 Gait Training Goal, Time to Achieve 2 - 3 days Gait Training Goal, Blossom Level supervision required Gait Training Goal, Assist [...] 3 days Transfer Training Goal, Activity Type fft-fs-uhhgm/nzyhg-ji-zam;cxb-il-ixnfs/hnwuo-od-wbq;toilet Transfer Train Goal, Blossom Level supervision required Transfer Training Goal, Additional Goal adheres to sternal precautions during transfer Consult Note - Octavia Vaughn RN - 07/12/2017 10:50 AM EST [facility] CARDIAC REHABILITATION Gregory Hoang was seen today regarding participation in the outpatient Phase 2 Cardiac Rehabilitation at [facility]. The patient agrees to a referral to [...] IV site, amio to other piv and STATE EDITOR at bedside to help assess, IV [...] Outcome: Ongoing (Interventions Implemented as Appropriate) 07/11/17199907/11/17200907/12/17 [facility] Daily Care Interventions Self-Care Promotion -- [...] staff, he stood and marched in place. [place] weak, wanting to sit back down. Remained [...] Outcome: Ongoing (Interventions Implemented as Appropriate) 07/05/17 4062 Mutuality/Individual Preferences What Anxieties, Fears or Concerns [...] Health/Prescription Coverage: Primary Insurance: MEDICARE Secondary Insurance: [employer] [place] Prescription Coverage: yes Preferred Pharmacy: [facility] [place] Other: none Primary Care Provider: Lovely Vicente MD [phone] Patient/Caregiver Goals of Treatment:live and get my breath back Potential Needs for Transition of Care: Rehab[facility]SNF: [facility]; [facility] Home Health: NA DME: TBD Dialysis: na Community Resources: available Transportation: yes Other: none Anticipated Barriers to Discharge/Special Considerations: none Plan: Likely SNF Rehab before home A member of the Care Management team will continue to monitor progress, follow for continuity of care and assist with transition of care planning. ERLIN Weiss Pager: [phone] Consult Note - Katerin Azul RN - [...] - 10.5 mg/dL 7.1 (L) Results for GREOGRY HOANG ( ) as of 07/09/2017 13:24 [...] to d/c gtt and start CF. terminal clerk diabetes care: Medications - Outpatient treatment regimen recommendations pending based on the hospital course. Monitoring - continue BG tid ac & hs Diet - low fat/low carb diet Exercise - weight-bearing exercise 30 min/day, as tolerated Thank you for allowing us to provide care for your patient W/E coverage, Dr. Jeane Tatum, pager [phone] Katerin Patel. STACIE Azul Endocrinology Diabetes Management Pager [phone] Plan of Care - Stephanie Godoy RN [...] Webber MD - 07/07/2017 6:27 PM EST [facility] Operative Note Patient Name: Gregory Hoang : [id number] MR#: [id number] Case Date: 07/07/2017 Surgeon: Surgeon(s) and Role: * Yuan Webber MD - Primary * Michael Drake PA - Physician Brick Chimney Supervisor * Linda Flores PA - Physician Brick Chimney Supervisor Preoperative diagnosis: 3VD Postoperative diagnosis: CAD, [...] Operative Note Patient Name: Gregory Hoang : [id number] MR#: [id number] Case Date: 07/07/2017 Surgeon: Surgeon(s) and Role: * Yuan Webber MD - Primary * Michael Drake PA - Physician Brick Chimney Supervisor * Linda Flores PA - Physician Brick Chimney Supervisor Preoperative diagnosis: 3VD Postoperative diagnosis: CAD, [...] Full Code Katty Davidjose, MS3 [facility] Medicine at [facility] Cardiology S1 (Pager [phone]) Plan of Care - Emelia Ibarra RN [...] [facility] ENDOSCOPY ??? PRO THYROIDECTOMY 03/28/2013 THYROIDECTOMY, TOTAL OR COMPLETE performed by Manny Mcknight MD at [facility] MAIN OR Social History: Social History [...] with other involved physicians Yuan Webber MD [phone] Med Student Progress Note - Katty Hahn [...] or BiPAP - s/p lasix in the tutorial laboratory supervisor, was net -1.5L - s/p plavix [...] [facility] Cardiology S1 (Pager [phone]) Plan of Care - Stephanie Godoy RN [...] in urinal without difficulty. Lasix given in tutorial laboratory supervisor, 1.4 L out at this time. [...] Dolan MD [facility] [address] [place] [address] (Wo lissa) 05/28/2022 Laboratory Appointment Lab 05/28/2022 Office Visit Cardiology Zulma Dolan MD [facility] [place] [address] Liz Poole PA [facility] [place] [address] 06/10/2022 Office Visit Dermatology Laura Scherer MD [facility] [address], [place] [address] (Wo rk) Scheduled Orders Name [...] procedure are i n the results section. RABBIT DRESSER SCAN 07/15/2017 12:00 Res ults for this [...] Routine 07/08/2017 4:00 Results f or this ([facility]/CG) AM EST procedure are i n the [...] Routine 07/06/2017 7:40 Results f or this ([facility]) PM EST procedure are i [...] section. TYPE AND SCREEN Routine 07/06/2017 12:00 ([facility]/SHANDA) PM EST APTT STAT 07/06/2017 [...] Routine 07/06/2017 8:10 Results f or this ([facility]) AM EST procedure are i [...] Routine 07/05/2017 8:20 Results f or this ([facility]) PM EST procedure are i [...] Timed 07/05/2017 4:55 Results f or this ([facility]) PM EST procedure are i [...] 2017 EXAMINATION: XR CHEST PA AND LATERAL ([employer]) CLINICAL HISTORY: CABG x 3 TECHNIQUE: PA [...] Teague APRN IMG DX ORDERABLES SCAN DOC: RABBIT DRESSER (07/15/2017 12:00 AM EST) Narrative 07/15/2017 12:00 [...] 186 65 - [address] [facility] mg/dL [facility] Comment: Supplemental ranges: [...] [facility]/[place] [address] POCT Glucose (07/14/2017 7:52 AM EST) athologist Signature POC Glucose 126 65 - [address] [facility] mg/dL [facility] Comment: Supplemental ranges: <140 mg/dL before meals <180 mg/dL all other times of the day Specimen Anatomical Collection Method Collection Time Receive d Time (Source) Location / / Volume Laterality Blood specimen 07/14/2017 7:52 AM 017 7:52 (specimen) EST AM EST Yuan Webber MD POINT OF CARE TEST ORDERABLE S Performing Organization Address City/State/[place] [address] (ABNORMAL) Prothrombin Time (07/14/2017 [...] Wilson APRN HEMATOLOGY ORDERABLES Performing Organization Address [facility]/[place] [address] Potassium (07/14/2017 4:46 AM EST) athologist Signature Potassium 4.3 3.5 - 5.0 [facility] mmol/L [facility] Comment: Please [...] Wilson APRN CHEMISTRY ORDERABLES Performing Organization Address [facility]/[place] [address] POCT Glucose (07/14/2017 4:34 AM EST) athologist Signature POC Glucose 115 65 - [address] [facility] mg/dL [facility] Comment: Supplemental ranges: [...] City/State/ZIP Code Phon e Number [place] [id number] POCT Glucose (07/13/2017 11:33 PM EST) athologist Signature POC Glucose 132 65 - 199 [place] mg/dL [facility] Comment: Supplemental ranges: <140 mg/dL before meals <180 mg/dL all other times of the day Specimen Anatomical Collection Method Collection Time Receive d Time (Source) Location / / Volume Laterality Blood specimen 07/13/2017 11:33 7 (specimen) PM EST 11:33 PM EST Yuan Webber MD POINT OF CARE TEST ORDERABLE S Performing Organization Address City/State/ZIP Code Phon e Number [address] POCT Glucose (07/13/2017 9:25 PM EST) athologist Signature POC Glucose 121 65 - 199 [place] mg/dL [facility] Comment: Supplemental ranges: <140 mg/dL before meals <180 mg/dL all other times of the day Specimen Anatomical Collection Method Collection Time Receive d Time (Source) Location / / Volume Laterality Blood specimen 07/13/2017 9:25 PM 017 9:25 (specimen) EST PM EST Yuan Webber MD POINT OF CARE TEST ORDERABLE S Performing Organization Address City/State/ZIP Code Phon e Number [address] POCT Glucose (07/13/2017 4:55 PM EST) athologist Signature POC Glucose 79 65 - 199 [place] mg/dL [facility] Comment: Supplemental ranges: <140 mg/dL before meals <180 mg/dL all other times of the day Specimen Anatomical Collection Method Collection Time Receive d Time (Source) Location / / Volume Laterality Blood specimen 07/13/2017 4:55 PM 017 4:55 (specimen) EST PM EST Yuan Webber MD POINT OF CARE TEST ORDERABLE S Performing Organization Address City/State/[place] [address] POCT Glucose (07/13/2017 11:16 AM EST) athologist Signature POC Glucose 163 65 - [address] [facility] mg/dL [facility] Comment: Supplemental ranges: <140 mg/dL before meals <180 mg/dL all other times of the day Specimen Anatomical Collection Method Collection Time Receive d Time (Source) Location / / Volume Laterality Blood specimen 07/13/2017 11:16 7 (specimen) AM EST 11:16 AM EST Yuan Webber MD POINT OF CARE TEST ORDERABLE S Performing Organization Address City/State/ZIP Code Phon e Number [address] POCT Glucose (07/13/2017 8:07 AM EST) athologist Signature POC Glucose 96 65 - 199 [facility]dL [facility] Comment: Supplemental ranges: <140 mg/dL before meals <180 mg/dL all other times of the day Specimen Anatomical Collection Method Collection Time Receive d Time (Source) Location / / Volume Laterality Blood specimen 07/13/2017 8:07 AM 017 8:07 (specimen) EST AM EST Yuan Webber MD POINT OF CARE TEST ORDERABLE S Performing Organization Address City/State/ZIP Code Phon e Number [address] (ABNORMAL) Prothrombin Time (07/13/2017 [...] Address City/State/[place] [address] (ABNORMAL) Basic Metabolic Panel (non-fasting) (07/13/2017 4:26 AM EST) athologist Signature Glucose Lvl 95 65 - 199 [facility] mg/dL [facility] Comment: Diabetes: [...] or in patients with acute kidney failure. [email or web address] Specimen Anatomical Collection Method Collection Time Receive d Time (Source) Location / / Volume Laterality Blood specimen 07/13/2017 4:26 AM 017 4:46 (specimen) EST AM EST Resulting Agency Comment Spec In Lab Makayla Wilson APRN CHEMISTRY ORDERABLES Performing Organization Address [facility]/ZIP Code Phon e Number [address] POCT Glucose (07/13/2017 3:52 AM EST) athologist Signature POC Glucose 93 65 - 199 [facility] [place] mg/dL [facility] Comment: Supplemental ranges: [...] [facility]/ZIP Code Phon e Number [address] POCT Glucose (07/13/2017 12:21 AM EST) athologist Signature POC Glucose 80 65 - 199 [place] mg/dL [facility] Comment: Supplemental ranges: [...] [facility]/[place] [address] POCT Glucose (07/12/2017 8:22 PM EST) athologist Signature POC Glucose 119 65 - 199 [place] mg/dL [facility] Comment: Supplemental ranges: <140 mg/dL before meals <180 mg/dL all other times of the day Specimen Anatomical Collection Method Collection Time Receive d Time (Source) Location / / Volume Laterality Blood specimen 07/12/2017 8:22 PM 017 8:22 (specimen) EST PM EST Yuan Webber MD POINT OF CARE TEST ORDERABLE S Performing Organization Address City/State/ZIP Code Phon e Number [address] POCT Glucose (07/12/2017 4:02 PM EST) athologist Signature POC Glucose 114 65 - 199 [place] mg/dL [facility] Comment: Supplemental ranges: <140 mg/dL before meals <180 mg/dL all other times of the day Specimen Anatomical Collection Method Collection Time Receive d Time (Source) Location / / Volume Laterality Blood specimen 07/12/2017 4:02 PM 017 4:02 (specimen) EST PM EST Yuan Webber MD POINT OF CARE TEST ORDERABLE S Performing Organization Address City/State/ZIP Code Phon e Number [address] POCT Glucose (07/12/2017 11:28 AM EST) athologist Signature POC Glucose 164 65 - 199 [facility] [place] mg/dL [facility] Comment: Supplemental ranges: <140 mg/dL before meals <180 mg/dL all other times of the day Specimen Anatomical Collection Method Collection Time Receive d Time (Source) Location / / Volume Laterality Blood specimen 07/12/2017 11:28 7 (specimen) AM EST 11:28 AM EST Yuan Webber MD POINT OF CARE TEST ORDERABLE S Performing Organization Address City/State/ZIP Code Phon e Number [address] POCT Glucose (07/12/2017 7:34 AM EST) athologist Signature POC Glucose 109 65 - 199 [facility] [place] mg/dL [facility] Comment: Supplemental ranges: <140 mg/dL before meals <180 mg/dL all other times of the day Specimen Anatomical Collection Method Collection Time Receive d Time (Source) Location / / Volume Laterality Blood specimen 07/12/2017 7:34 AM 017 7:34 (specimen) EST AM EST Yuan Webber MD POINT OF CARE TEST ORDERABLE S Performing Organization Address City/State/[place] [address] (ABNORMAL) Basic Metabolic Panel (non-fasting) (07/12/2017 4:11 AM EST) P athologist Signature Glucose Lvl 92 65 - 199 [facility] mg/dL [facility] Comment: Diabetes: [...] or in patients with acute kidney failure. [email or web address] Specimen Anatomical Collection Method Collection Time Receive d Time (Source) Location / / Volume Laterality Blood specimen 07/12/2017 4:11 AM 017 8:57 (specimen) EST AM EST Resulting Agency Comment Spec In Lab Makayla Wilson APRN CHEMISTRY ORDERABLES Performing Organization Address City/State/[place] [address] (ABNORMAL) Prothrombin Time (07/12/2017 [...] [place] STACIE HEMATOLOGY ORDERABLES Performing Organization Address [facility]/[place] [address] Potassium (07/12/2017 4:11 AM EST) athologist Signature Potassium 3.8 3.5 - 5.0 [facility] mmol/L [facility] Comment: Please [...] Agency Comment Spec In Lab Makayla [place] CLOTH HAND CHEMISTRY ORDERABLES Performing Organization Address City[facility]/[place] [address] POCT Glucose (07/12/2017 4:10 AM EST) athologist Signature POC Glucose 90 65 - 199 [facility] Comment: Supplemental ranges: <140 mg/dL before meals <180 mg/dL all other times of the day Specimen Anatomical Collection Method Collection Time Receive d Time (Source) Location / / Volume Laterality Blood specimen 07/12/2017 4:10 AM 017 4:10 (specimen) EST AM EST Yuan Webber MD POINT OF CARE TEST ORDERABLE S Performing Organization Address City/State/ZIP Code Phon e Number [address] POCT Glucose (07/11/2017 11:57 PM EST) athologist Signature POC Glucose 98 65 - 199 [facility] Comment: Supplemental ranges: <140 mg/dL before meals <180 mg/dL all other times of the day Specimen Anatomical Collection Method Collection Time Receive d Time (Source) Location / / Volume Laterality Blood specimen 07/11/2017 11:57 7 (specimen) PM EST 11:57 PM EST Yuan Webber MD POINT OF CARE TEST ORDERABLE S Performing Organization Address City/State/ZIP Code Phon e Number [address] POCT Glucose (07/11/2017 8:32 PM EST) athologist Signature POC Glucose 146 65 - 199 [facility]/dL [facility] Comment: Supplemental ranges: <140 mg/dL before meals <180 mg/dL all other times of the day Specimen Anatomical Collection Method Collection Time Receive d Time (Source) Location / / Volume Laterality Blood specimen 07/11/2017 8:32 PM 017 8:32 (specimen) EST PM EST Yuan Webber MD POINT OF CARE TEST ORDERABLE S Performing Organization Address City/State/[place] [address] XR Chest PA & [...] e xtubated, left chest tube removed, and [place]-Suzi catheter removed since the study. Atelectasis at [...] e xtubated, left chest tube removed, and [place]-Suzi catheter removed since the study. Atelectasis at [...] (H) 65 - 199 [place] mg/dL [facility] Comment: Supplemental ranges: <140 mg/dL before meals <180 mg/dL all other times of the day Specimen Anatomical Collection Method Collection Time Receive d Time (Source) Location / / Volume Laterality Blood specimen 07/11/2017 4:05 PM 017 4:05 (specimen) EST PM EST Yuan Webber MD POINT OF CARE TEST ORDERABLE S Performing Organization Address City/State/ZIP Code Phon e Number [address] POCT Glucose (07/11/2017 11:55 AM EST) athologist Signature POC Glucose 176 65 - 199 [place] mg/dL [facility] Comment: Supplemental ranges: [...] [facility]/ZIP Code Phon e Number [address] POCT Glucose (07/11/2017 7:53 AM EST) athologist Signature POC Glucose 189 65 - 199 [place] mg/dL [facility] Comment: Supplemental ranges: <140 mg/dL before meals <180 mg/dL all other times of the day Specimen Anatomical Collection Method Collection Time Receive d Time (Source) Location / / Volume Laterality Blood specimen 07/11/2017 7:53 AM 017 7:53 (specimen) EST AM EST Yuan Webber MD POINT OF CARE TEST ORDERABLE S Performing Organization Address City/State/[place] [address] POCT Glucose (07/11/2017 4:22 AM EST) athologist Signature POC Glucose 151 65 - 199 [place] mg/dL [facility] Comment: Supplemental ranges: [...] [facility]/[place] [address] Potassium (07/11/2017 2:20 AM EST) athologist Signature Potassium 4.5 3.5 - 5.0 [facility]/L [facility] Comment: Please note: [...] Webber MD CHEMISTRY ORDERABLES Performing Organization Address [facility]/[place] [address] POCT Glucose (07/11/2017 12:17 AM EST) athologist Signature POC Glucose 162 65 - 199 [place] mg/dL [facility] Comment: Supplemental ranges: [...] [facility]/[place] [address] POCT Glucose (07/10/2017 8:47 PM EST) athologist Signature POC Glucose 191 65 - 199 [place] mg/dL [facility] Comment: Supplemental ranges: <140 mg/dL before meals <180 mg/dL all other times of the day Specimen Anatomical Collection Method Collection Time Receive d Time (Source) Location / / Volume Laterality Blood specimen 07/10/2017 8:47 PM 017 8:47 (specimen) EST PM EST Yuan Webber MD POINT OF CARE TEST ORDERABLE S Performing Organization Address City/State/[place] [address] POCT Glucose (07/10/2017 4:06 PM EST) athologist Signature POC Glucose 131 65 - 199 [place] mg/dL [facility] Comment: Supplemental ranges: [...] [facility]/[place] [address] POCT Glucose (07/10/2017 3:08 PM EST) athologist Signature POC Glucose 151 65 - 199 [place] mg/dL [facility] Comment: Supplemental ranges: <140 mg/dL before meals <180 mg/dL all other times of the day Specimen Anatomical Collection Method Collection Time Receive d Time (Source) Location / / Volume Laterality Blood specimen 07/10/2017 3:08 PM 017 3:08 (specimen) EST PM EST Yuan Webber MD POINT OF CARE TEST ORDERABLE S Performing Organization Address City/State/[place] [address] POCT Glucose (07/10/2017 2:25 PM EST) athologist Signature POC Glucose 146 65 - 199 [facility] [place] mg/dL [facility] Comment: Supplemental ranges: <140 mg/dL before meals <180 mg/dL all other times of the day Specimen Anatomical Collection Method Collection Time Receive d Time (Source) Location / / Volume Laterality Blood specimen 07/10/2017 2:25 PM 017 2:25 (specimen) EST PM EST Yuan Webber MD POINT OF CARE TEST ORDERABLE S Performing Organization Address City/State/ZIP Code Phon e Number [address] POCT Glucose (07/10/2017 1:23 PM EST) P athologist Signature POC Glucose 166 65 - 199 [place] mg/dL [facility] Comment: Supplemental ranges: [...] [facility]/ZIP Code Phon e Number [address] POCT Glucose (07/10/2017 11:52 AM EST) P athologist Signature POC Glucose 157 65 - 199 [place] mg/dL [facility] Comment: Supplemental ranges: [...] [facility]/[place] [address] POCT Glucose (07/10/2017 11:01 AM EST) P athologist Signature POC Glucose 158 65 - 199 [place] mg/dL [facility] Comment: Supplemental ranges: <140 mg/dL before meals <180 mg/dL all other times of the day Specimen Anatomical Collection Method Collection Time Receive d Time (Source) Location / / Volume Laterality Blood specimen 07/10/2017 11:01 7 (specimen) AM EST 11:01 AM EST Yuan Webber MD POINT OF CARE TEST ORDERABLE S Performing Organization Address City/State/ZIP Code Phon e Number [address] POCT Glucose (07/10/2017 9:54 AM EST) athologist Signature POC Glucose 160 65 - 199 [place] mg/dL [facility] Comment: Supplemental ranges: [...] [facility]/ZIP Code Phon e Number [address] POCT Glucose (07/10/2017 8:58 AM EST) athologist Signature POC Glucose 183 65 - 199 [place] mg/dL [facility] Comment: Supplemental ranges: <140 mg/dL before meals <180 mg/dL all other times of the day Specimen Anatomical Collection Method Collection Time Receive d Time (Source) Location / / Volume Laterality Blood specimen 07/10/2017 8:58 AM 017 8:58 (specimen) EST AM EST Yuan Webber MD POINT OF CARE TEST ORDERABLE S Performing Organization Address City/State/ZIP Code Phon e Number [address] POCT Glucose (07/10/2017 8:01 AM EST) athologist Signature POC Glucose 173 65 - 199 [facility] [place] mg/dL [facility] Comment: Supplemental ranges: <140 mg/dL before meals <180 mg/dL all other times of the day Specimen Anatomical Collection Method Collection Time Receive d Time (Source) Location / / Volume Laterality Blood specimen 07/10/2017 8:01 AM 017 8:01 (specimen) EST AM EST Yuan Webber MD POINT OF CARE TEST ORDERABLE S Performing Organization Address City/State/ZIP Code Phon e Number [address] POCT Glucose (07/10/2017 7:05 AM EST) athologist Signature POC Glucose 166 65 - 199 [place] mg/dL [facility] Comment: Supplemental ranges: <140 mg/dL before meals <180 mg/dL all other times of the day Specimen Anatomical Collection Method Collection Time Receive d Time (Source) Location / / Volume Laterality Blood specimen 07/10/2017 7:05 AM 017 7:05 (specimen) EST AM EST Yuan Webber MD POINT OF CARE TEST ORDERABLE S Performing Organization Address City/State/ZIP Code Phon e Number [address] POCT Glucose (07/10/2017 6:00 AM EST) athologist Signature POC Glucose 162 65 - 199 [facility]dL [facility] Comment: Supplemental ranges: <140 mg/dL before meals <180 mg/dL all other times of the day Specimen Anatomical Collection Method Collection Time Receive d Time (Source) Location / / Volume Laterality Blood specimen 07/10/2017 6:00 AM 017 6:00 (specimen) EST AM EST Yuan Webber MD POINT OF CARE TEST ORDERABLE S Performing Organization Address City/State/[place] [address] (ABNORMAL) Differential, Automated (07/10/2017 4:28 AM EST) [facility] gist Method Time Signature Neutrophils % 87.9 % [facility] Neutr Abs (ANC) 10.70 (H) 1.70 - [facility] 6.10 [facility] x10(3)/[facility] L LABORATORY Lymphocytes % 3.9 % [facility] Lymphocytes Abs 0.5 (L) 0.9 - 3.2 [facility] x10(3)/[facility] LABORATORY Monocytes % 7.0 % [facility] Monocyte Abs 0.8 0.3 - 0.9 [facility] x10(3)/[facility] LABORATORY Eosinophils % 0.3 % [facility] Eosinophils Abs 0.0 0.0 - 0.4 [facility] x10(3)/[facility] LABORATORY Basophils % 0.2 % [facility] Basophils Abs 0.0 0.0 - 0.1 [facility] x10(3)/[facility] LABORATORY Immature Gran [...] Address City/State/[place] [address] (ABNORMAL) Hemogram (07/10/2017 4:28 AM EST) Analysis Performed At Patho logist Time Signature WBC 12.2 (H) 4.0 - 9.5 [facility] x10(3)/[facility] LABORATORY RBC 3.31 (L) 4.58 - [facility] 5.54 [facility] x10(6)/[facility] LABORATORY Hemoglobin 9.8 (L) 13.7 - [facility] 16.5 gm/dL [facility] Hematocrit 30.0 (L) 40.5 - [facility] 48.5 % [facility] MCV 90.6 82.9 - [facility] 93.1 fL [facility] MCH 29.6 27.5 - [facility] 32.1 pg [facility] MCHC 32.7 32.0 - [facility] 35.7 gm/dL [facility] Platelets 135 (L) 145 - 357 [facility] x10(3)/[facility] LABORATORY RDWSD 50.8 (H) 36.0 - [facility] 45.0 [facility] LABORATORY RDWCV 15.4 (H) 11.4 - [facility] 13.8 % [facility] MPV 10.0 7.6 - 12.9 [facility] LABORATORY nRBC % Auto 0.0 % [facility] nRBC Abs Auto 0.000 0.000 - [facility] 0.000 [facility] x10(3)/[facility] LABORATORY Specimen Anatomical Collection Method Collection Time Receive d Time (Source) Location / / Volume Laterality Blood specimen 07/10/2017 4:28 AM 017 4:36 (specimen) EST AM EST Resulting Agency Comment Spec In Lab Yuan Webber MD HEMATOLOGY ORDERABLES Performing Organization Address City/State/[place] [address] (ABNORMAL) Basic Metabolic Panel (non-fasting) (07/10/2017 4:28 AM EST) athologist Signature Glucose Lvl 178 65 - 199 [facility] mg/dL [facility] Comment: Diabetes: [...] or in patients with acute kidney failure. [email or web address] Specimen Anatomical Collection Method Collection Time Receive d Time (Source) Location / / Volume Laterality Blood specimen 07/10/2017 4:28 AM 017 4:36 (specimen) EST AM EST Resulting Agency Comment Spec In Lab Yuan Webber MD CHEMISTRY ORDERABLES Performing Organization Address City/[facility]/ZIP Code Phon e Number [address] POCT Glucose (07/10/2017 4:26 AM EST) P athologist Signature POC Glucose 176 65 - [address] [facility] mg/dL [facility] Comment: Supplemental ranges: <140 mg/dL before meals <180 mg/dL all other times of the day Specimen Anatomical Collection Method Collection Time Receive d Time (Source) Location / / Volume Laterality Blood specimen 07/10/2017 4:26 AM 017 4:26 (specimen) EST AM EST Yuan Webber MD POINT OF CARE TEST ORDERABLE S Performing Organization Address City/State/[place] [address] (ABNORMAL) POCT Glucose (07/10/2017 3:06 AM EST) P athologist Signature POC Glucose 204 (H) 65 - 199 [facility] Comment: Supplemental ranges: [...] City/[facility]/[place] [address] (ABNORMAL) POCT Glucose (07/10/2017 2:10 AM EST) P athologist Signature POC Glucose 203 (H) 65 - 199 [place] mg/dL [facility] Comment: Supplemental ranges: [...] City[facility]/[place] [address] POCT Glucose (07/10/2017 1:09 AM EST) P athologist Signature POC Glucose 196 65 - 199 [place] mg/dL [facility] Comment: Supplemental ranges: <140 mg/dL before meals <180 mg/dL all other times of the day Specimen Anatomical Collection Method Collection Time Receive d Time (Source) Location / / Volume Laterality Blood specimen 07/10/2017 1:09 AM 017 1:09 (specimen) EST AM EST Yuan Webber MD POINT OF CARE TEST ORDERABLE S Performing Organization Address City/State/[place] [address] POCT Glucose (07/10/2017 12:10 AM EST) P athologist Signature POC Glucose 173 65 - 199 [place] mg/dL [facility] Comment: Supplemental ranges: <140 mg/dL before meals <180 mg/dL all other times of the day Specimen Anatomical Collection Method Collection Time Receive d Time (Source) Location / / Volume Laterality Blood specimen 07/10/2017 12:10 7 (specimen) AM EST 12:10 AM EST Yuan Webber MD POINT OF CARE TEST ORDERABLE S Performing Organization Address City/State/ZIP Code Phon e Number [address] POCT Glucose (07/09/2017 11:01 PM EST) athologist Signature POC Glucose 140 65 - 199 [place] mg/dL [facility] Comment: Supplemental ranges: [...] [facility]/ZIP Code Phon e Number [address] POCT Glucose (07/09/2017 10:05 PM EST) athologist Signature POC Glucose 144 65 - 199 [place] mg/dL [facility] Comment: Supplemental ranges: <140 mg/dL before meals <180 mg/dL all other times of the day Specimen Anatomical Collection Method Collection Time Receive d Time (Source) Location / / Volume Laterality Blood specimen 07/09/2017 10:05 7 (specimen) PM EST 10:05 PM EST Yuan Webber MD POINT OF CARE TEST ORDERABLE S Performing Organization Address City/State/[place] [address] POCT Glucose (07/09/2017 9:31 PM EST) athologist Signature POC Glucose 121 65 - 199 [place] mg/dL [facility] Comment: Supplemental ranges: <140 mg/dL before meals <180 mg/dL all other times of the day Specimen Anatomical Collection Method Collection Time Receive d Time (Source) Location / / Volume Laterality Blood specimen 07/09/2017 9:31 PM 017 9:31 (specimen) EST PM EST Yuan Webber MD POINT OF CARE TEST ORDERABLE S Performing Organization Address City/State/ZIP Code Phon e Number [address] POCT Glucose (07/09/2017 9:03 PM EST) athologist Signature POC Glucose 98 65 - 199 [place] mg/dL [facility] Comment: Supplemental ranges: <140 mg/dL before meals <180 mg/dL all other times of the day Specimen Anatomical Collection Method Collection Time Receive d Time (Source) Location / / Volume Laterality Blood specimen 07/09/2017 9:03 PM 017 9:03 (specimen) EST PM EST Yuan Webber MD POINT OF CARE TEST ORDERABLE S Performing Organization Address City/State/ZIP Code Phon e Number [address] POCT Glucose (07/09/2017 8:09 PM EST) athologist Signature POC Glucose 117 65 - 199 [place] mg/dL [facility] Comment: Supplemental ranges: <140 mg/dL before meals <180 mg/dL all other times of the day Specimen Anatomical Collection Method Collection Time Receive d Time (Source) Location / / Volume Laterality Blood specimen 07/09/2017 8:09 PM 017 8:09 (specimen) EST PM EST Yuan Webber MD POINT OF CARE TEST ORDERABLE S Performing Organization Address City/State/ZIP Code Phon e Number [address] POCT Glucose (07/09/2017 5:40 PM EST) athologist Signature POC Glucose 155 65 - 199 [facility] mg/dL [facility] Comment: Supplemental ranges: <140 mg/dL before meals <180 mg/dL all other times of the day Specimen Anatomical Collection Method Collection Time Receive d Time (Source) Location / / Volume Laterality Blood specimen 07/09/2017 5:40 PM 017 5:40 (specimen) EST PM EST Yuan Webber MD POINT OF CARE TEST ORDERABLE S Performing Organization Address City/State/ZIP Code Phon e Number [address] POCT Glucose (07/09/2017 4:24 PM EST) athologist Signature POC Glucose 164 65 - 199 [place] mg/dL [facility] Comment: Supplemental ranges: [...] City[facility]/ZIP Code Phon e Number [address] POCT Glucose (07/09/2017 3:19 PM EST) athologist Signature POC Glucose 166 65 - 199 [place] mg/dL [facility] Comment: Supplemental ranges: [...] City[facility]/[place] [address] POCT Glucose (07/09/2017 2:26 PM EST) athologist Signature POC Glucose 179 65 - 199 [place] mg/dL [facility] Comment: Supplemental ranges: <140 mg/dL before meals <180 mg/dL all other times of the day Specimen Anatomical Collection Method Collection Time Receive d Time (Source) Location / / Volume Laterality Blood specimen 07/09/2017 2:26 PM 017 2:26 (specimen) EST PM EST Yuan Webber MD POINT OF CARE TEST ORDERABLE S Performing Organization Address City/State/[place] [address] (ABNORMAL) POCT Glucose (07/09/2017 1:29 PM EST) P athologist Signature POC Glucose 210 (H) 65 - 199 [facility] mg/dL [facility] Comment: Supplemental ranges: <140 mg/dL before meals <180 mg/dL all other times of the day Specimen Anatomical Collection Method Collection Time Receive d Time (Source) Location / / Volume Laterality Blood specimen 07/09/2017 1:29 PM 017 1:29 (specimen) EST PM EST Yuan Webber MD POINT OF CARE TEST ORDERABLE S Performing Organization Address City/State/[place] [address] POCT Glucose (07/09/2017 12:20 PM EST) athologist Signature POC Glucose 172 65 - 199 [facility] [place] mg/dL [facility] Comment: Supplemental ranges: <140 mg/dL before meals <180 mg/dL all other times of the day Specimen Anatomical Collection Method Collection Time Receive d Time (Source) Location / / Volume Laterality Blood specimen 07/09/2017 12:20 7 (specimen) PM EST 12:20 PM EST uYan Webber MD POINT OF CARE TEST ORDERABLE S Performing Organization Address City/State/[place] [address] POCT Glucose (07/09/2017 11:24 AM EST) athologist Signature POC Glucose 156 65 - 199 [facility] [place] mg/dL [facility] Comment: Supplemental ranges: <140 mg/dL before meals <180 mg/dL all other times of the day Specimen Anatomical Collection Method Collection Time Receive d Time (Source) Location / / Volume Laterality Blood specimen 07/09/2017 11:24 7 (specimen) AM EST 11:24 AM EST Yuan Webber MD POINT OF CARE TEST ORDERABLE S Performing Organization Address City/State/[place] [address] POCT Glucose (07/09/2017 11:11 AM EST) athologist Signature POC Glucose 172 65 - 199 [place] mg/dL [facility] Comment: Supplemental ranges: <140 mg/dL before meals <180 mg/dL all other times of the day Specimen Anatomical Collection Method Collection Time Receive d Time (Source) Location / / Volume Laterality Blood specimen 07/09/2017 11:11 7 (specimen) AM EST 11:11 AM EST Yuan Webber MD POINT OF CARE TEST ORDERABLE S Performing Organization Address City/State/ZIP Code Phon e Number [address] POCT Glucose (07/09/2017 10:08 AM EST) athologist Signature POC Glucose 176 65 - 199 [place] mg/dL [facility] Comment: Supplemental ranges: <140 mg/dL before meals <180 mg/dL all other times of the day Specimen Anatomical Collection Method Collection Time Receive d Time (Source) Location / / Volume Laterality Blood specimen 07/09/2017 10:08 7 (specimen) AM EST 10:08 AM EST Yuan Webber MD POINT OF CARE TEST ORDERABLE S Performing Organization Address City/State/ZIP Code Phon e Number [address] POCT Glucose (07/09/2017 8:02 AM EST) athologist Signature POC Glucose 178 65 - 199 [place] mg/dL [facility] Comment: Supplemental ranges: <140 mg/dL before meals <180 mg/dL all other times of the day Specimen Anatomical Collection Method Collection Time Receive d Time (Source) Location / / Volume Laterality Blood specimen 07/09/2017 8:02 AM 017 8:02 (specimen) EST AM EST Yuan Webber MD POINT OF CARE TEST ORDERABLE S Performing Organization Address City/State/[place] [address] (ABNORMAL) BLOOD GAS 2 ARTERIAL (07/09/2017 5:37 AM EST) Analysis Performed At Patho logist Time Signature pH Art 7.36 7.35 - [facility] 7.45 [facility] pCO2 Art 38 35 - 45 [facility] mmHg [facility] pO2 Art 79 (L) 85 - 104 [facility] LABORATORY HCO3 Art 20.9 20.0 - [facility] 26.0 [facility] mmol/L [facility] LABORATORY BE Art -4.6 (L) -3.0 - 3.0 [facility] mmol/L [facility] Hgb Blood Gas 10.5 (L) 13.7 - [facility] 16.5 gm/dL [facility] O2HB Art 93.8 (L) 94.0 - [facility] 97.0 % [facility] COHB Art 0.3 % [place] [facility] FIO2 Art 40 % [facility] LABORATORY PF Ratio Art 198 [facility] LABORATORY Specimen Anatomical Collection Method Collection Time Receive d Time (Source) Location / / Volume Laterality Blood specimen 07/09/2017 5:37 AM 017 5:37 (specimen) EST AM EST Yuan Webber MD CHEMISTRY ORDERABLES Performing Organization Address City/[facility]/ZIP Code Phon e Number [address] POCT Glucose (07/09/2017 3:27 AM EST) athologist Signature POC Glucose 192 65 - [address] [facility] mg/dL [facility] Comment: Supplemental ranges: <140 mg/dL before meals <180 mg/dL all other times of the day Specimen Anatomical Collection Method Collection Time Receive d Time (Source) Location / / Volume Laterality Blood specimen 07/09/2017 3:27 AM 017 3:27 (specimen) EST AM EST Yuan Webber MD POINT OF CARE TEST ORDERABLE S Performing Organization Address City/State/[place] [address] (ABNORMAL) Basic Metabolic Panel (non-fasting) (07/09/2017 2:30 AM EST) athologist Signature Glucose Lvl 179 65 - 199 [facility] mg/dL [facility] Comment: Diabetes: [...] or in patients with acute kidney failure. [email or web address] Specimen Anatomical Collection Method Collection Time Receive d Time (Source) Location / / Volume Laterality Blood specimen Venous Draw / 07/09/2017 2:30 AM 2016 2:42 (specimen) Unknown EST AM EST Resulting Agency Comment Spec In Lab Yuan Webber MD CHEMISTRY ORDERABLES Performing Organization Address City[facility] [place] [address] (ABNORMAL) Potassium (07/09/2017 2:30 AM EST) P athologist Signature Potassium 5.1 (H) 3.5 - 5.0 [facility] mmol/L [facility] Comment: Please [...] Webber MD CHEMISTRY ORDERABLES Performing Organization Address City/[facility]/ZIP [facility] [place] [address] (ABNORMAL) Hemogram (07/09/2017 2:30 AM EST) Analysis Performed At Patho logist Time Signature WBC 12.5 (H) 4.0 - 9.[address] [facility] x10(3)/[facility] LABORATORY RBC 3.38 (L) 4.58 - [place] 5.54 [facility] x10(6)/[facility] LABORATORY Hemoglobin 10.1 (L) 13.7 - [place] 16.5 gm/dL [facility] Hematocrit 30.3 (L) 40.5 - [place] 48.5 % [facility] MCV 89.6 82.9 - [facility] 93.1 [facility] LABORATORY MCH 29.9 27.5 - [place] 32.1 pg [facility] MCHC 33.3 32.0 - [place] 35.7 gm/dL [facility] Platelets 127 (L) 145 - 357 [facility] x10(3)/[facility] LABORATORY RDWSD 49.3 (H) 36.0 - [facility] 45.0 [facility] LABORATORY RDWCV 15.2 (H) 11.4 - [facility] 13.8 % [facility] MPV 9.9 7.6 - 12.[address] [facility] LABORATORY nRBC % Auto 0.0 % [facility] LABORATORY nRBC Abs Auto 0.000 0.000 - [place] 0.000 [facility] x10(3)/[facility] LABORATORY Specimen Anatomical Collection Method Collection Time Receive d Time (Source) Location / / Volume Laterality Blood specimen 07/09/2017 2:30 AM 017 2:41 (specimen) EST AM EST Resulting Agency Comment Spec In Lab Yuan Webber MD HEMATOLOGY ORDERABLES Performing Organization Address City/State/[place] [address] POCT Glucose (07/09/2017 2:10 AM EST) P athologist Signature POC Glucose 169 65 - 199 [facility] mg/dL [facility] Comment: Supplemental [...] Address City/State/ZIP Code Phon e Number [address] POCT Glucose (07/09/2017 1:01 AM EST) P athologist Signature POC Glucose 173 65 - 199 [place] mg/dL [facility] Comment: Supplemental [...] [facility]/[place] [address] Blood culture (07/09/2017 12:40 AM EST) [facility] gist Method Time Signature Blood Culture No growth [place] at 5 days. [facility] Specimen Anatomical Collection Method Collection Time Receive d Time (Source) Location / / Volume Laterality Blood specimen STRUCTURE OF RIGHT 07/09/2017 12:40 3:58 (specimen) UPPER LIMB / AM EST AM EST Unknown Resulting Agency Comment Spec In Lab Yuan Webber MD MICROBIOLOGY - BLOOD ORDERAB LES Performing Organization Address City[facility]/ZIP [place] [address] Blood culture (07/09/2017 12:30 AM EST) Patholo gist Method Time Signature Blood Culture No growth [place] DAVIS at 5 days. [facility] Specimen Anatomical Collection Method Collection Time Receive d Time (Source) Location / / Volume Laterality Blood specimen STRUCTURE OF LEFT 07/09/2017 12:30 06/25 3:59 (specimen) UPPER LIMB / AM EST AM EST Unknown Resulting Agency Comment Spec In Lab Yuan Webber MD MICROBIOLOGY - BLOOD ORDERAB LES Performing Organization Address City/[facility]/ZIP Code [place] [address] (ABNORMAL) Urinalysis Microscopic Exam (07/09/2017 12:05 AM EST) Analysis Performed At Patho logist Time Signature RBC UA 32 (H) 0 - 3 /HPF [facility] LABORATORY WBC UA 5 (H) 0 - 3 /HPF [facility]ORY Squam Epith UA <1 <=4 /HPF [facility]ORY Hyaline Cast 17 (H) 0 - 2 /LPF [facility] LABORATORY Gran Cast UA 1 (H) <=0 /LPF [facility] LABORATORY Uric Ac Bianca Rare (A) None /HPF [facility] LABORATORY Specimen (Source) Anatomical Collection Method Collection Time Re ceived Time Location / / Volume Laterality Urine specimen 07/09/2017 12:05 7 obtained via AM EST 12:39 AM EST indwelling urinary catheter (specimen) Resulting Agency Comment Spec In Lab Yuan Webber MD URINE ORDERABLES Performing Organization Address City/State/[place] [address] (ABNORMAL) Urinalysis with reflex Culture (07/09/2017 12:05 AM EST) Patholo gist Method Time Signature Glucose UA Negative Negative [facility] mg/dL [facility] Protein UA 30 (A) Negative [facility] mg/dL [facility] Bilirubin UA Negative Negative [facility] mg/dL [facility] Comment: Clinical correlation required [...] [facility] Nitrite UA Negative Negative [facility] LABORATORY Leukocytes UA Negative Negative [facility] LABORATORY Appearance UA Hazy (A) Clear [facility] LABORATORY Spec [place] UA 1.025 1.002 - 1.030 [facility] Color UA Yellow Yellow [facility] LABORATORY Culture Reflexed No [facility] Specimen (Source) Anatomical Collection Method Collection Time Re ceived Time Location / / Volume Laterality Urine specimen 07/09/2017 12:05 7 obtained via AM EST 12:39 AM EST indwelling urinary catheter (specimen) Resulting Agency Comment Spec In Lab Yuan Webber MD URINE ORDERABLES Performing Organization Address City/[facility]/ZIP Code Phon e Number [address] POCT Glucose (07/08/2017 11:01 PM EST) athologist Signature POC Glucose 191 65 - [address] [facility] mg/dL [facility] Comment: Supplemental ranges: [...] City/[facility]/ZIP Code Phon e Number [address] POCT Glucose (07/08/2017 10:04 PM EST) athologist Signature POC Glucose 198 65 - 199 [facility] mg/dL [facility] Comment: Supplemental ranges: <140 mg/dL before meals <180 mg/dL all other times of the day Specimen Anatomical Collection Method Collection Time Receive d Time (Source) Location / / Volume Laterality Blood specimen 07/08/2017 10:04 7 (specimen) PM EST 10:04 PM EST Yuan Webber MD POINT OF CARE TEST ORDERABLE S Performing Organization Address City/State/[place] [address] Prepare Albumin 5% in [...] Address City/State/[place] [address] POCT Glucose (07/08/2017 8:28 PM EST) athologist Signature POC Glucose 195 65 - 199 [facility] mg[facility]dL [facility] Comment: Supplemental ranges: <140 mg/dL before meals <180 mg/dL all other times of the day Specimen Anatomical Collection Method Collection Time Receive d Time (Source) Location / / Volume Laterality Blood specimen 07/08/2017 8:28 PM 017 8:28 (specimen) EST PM EST Yuan Webber MD POINT OF CARE TEST ORDERABLE S Performing Organization Address City/State/[place] [address] (ABNORMAL) POCT Glucose (07/08/2017 7:13 PM EST) athologist Signature POC Glucose 220 (H) 65 - 199 [facility] mg/dL [facility] Comment: Supplemental ranges: <140 mg/dL before meals <180 mg/dL all other times of the day Specimen Anatomical Collection Method Collection Time Receive d Time (Source) Location / / Volume Laterality Blood specimen 07/08/2017 7:13 PM 017 7:13 (specimen) EST PM EST Yuan Webber MD POINT OF CARE TEST ORDERABLE S Performing Organization Address City/State/[place] [address] POCT Glucose (07/08/2017 5:04 PM EST) athologist Signature POC Glucose 147 65 - 199 [facility] mg/dL [facility] Comment: Supplemental [...] Address City/State/[place] [address] (ABNORMAL) BLOOD GAS 2 ARTERIAL (07/08/2017 4:13 PM EST) Analysis Performed At Patho logist Time Signature pH Art 7.38 7.35 - [facility] 7.45 [facility] pCO2 Art 36 35 - 45 [facility] mmHg [facility] pO2 Art 91 85 - 104 [facility] LABORATORY HCO3 Art 20.9 20.0 - [facility] 26.0 [facility] mmol/L [facility] LABORATORY BE Art -4.2 (L) -3.0 - 3.0 [facility] mmol/L [facility] Hgb Blood Gas 11.7 (L) 13.7 - [facility] 16.5 gm/dL [facility] O2HB Art 95.1 94.0 - [facility] 97.0 % [facility] COHB Art 0.6 % [place] [facility] FIO2 Art 40 % [facility] LAB[facility] PF Ratio Art 228 [facility] LABORATORY Specimen Anatomical Collection Method Collection Time Receive d Time (Source) Location / / Volume Laterality Blood specimen 07/08/2017 4:13 PM 017 4:13 (specimen) EST PM EST Yuan Webber MD CHEMISTRY ORDERABLES Performing Organization Address City/[facility]/ZIP [facility] [place] [address] POCT Glucose (07/08/2017 4:01 PM EST) P athologist Signature POC Glucose 148 65 - [address] [facility] mg/dL [facility] Comment: Supplemental ranges: [...] City/[facility]/[place] [address] POCT Glucose (07/08/2017 3:21 PM EST) P athologist Signature POC Glucose 118 65 - [address] [facility] mg/dL [facility] Comment: Supplemental ranges: <140 mg/dL before meals <180 mg/dL all other times of the day Specimen Anatomical Collection Method Collection Time Receive d Time (Source) Location / / Volume Laterality Blood specimen 07/08/2017 3:21 PM 017 3:21 (specimen) EST PM EST Yuan Webber MD POINT OF CARE TEST ORDERABLE S Performing Organization Address City/State/ZIP Code Phon e Number [address] POCT Glucose (07/08/2017 2:01 PM EST) athologist Signature POC Glucose 129 65 - 199 [place] mg/dL [facility] Comment: Supplemental ranges: [...] City/[facility]/ZIP Code Phon e Number [address] POCT Glucose (07/08/2017 11:53 AM EST) athologist Signature POC Glucose 156 65 - 199 [place] mg/dL [facility] Comment: Supplemental ranges: [...] City/[facility]/ZIP Code Phon e Number [address] POCT Glucose (07/08/2017 11:04 AM EST) athologist Signature POC Glucose 181 65 - 199 KATALINA RYAN mg/dL [facility] Comment: Supplemental ranges: <140 mg/dL before meals <180 mg/dL all other times of the day Specimen Anatomical Collection Method Collection Time Receive d Time (Source) Location / / Volume Laterality Blood specimen 07/08/2017 11:04 7 (specimen) AM EST 11:04 AM EST Yuan Webber MD POINT OF CARE TEST ORDERABLE S Performing Organization Address City/State/[place] [address] (ABNORMAL) POCT Glucose (07/08/2017 9:24 AM EST) athologist Signature POC Glucose 203 (H) 65 - 199 [facility] mg/dL [facility] Comment: Supplemental [...] Address City/State/[place] [address] APTT (07/08/2017 8:40 AM EST) athologist Signature PTT 33 25 - 35 sec [facility] Comment: The recommended therapeutic range for fu ll dose, unfractionated heparin at [facility] is 80 ? 114 [...] Webber MD HEMATOLOGY ORDERABLES Performing Organization Address City/[facility]/[place] [address] (ABNORMAL) Prothrombin Time (07/08/2017 [...] Address City/State/[place] [address] (ABNORMAL) POCT Glucose (07/08/2017 7:38 AM EST) athologist Signature POC Glucose 232 (H) 65 - 199 [facility] Comment: Supplemental ranges: [...] City[facility]/[place] [address] (ABNORMAL) POCT Glucose (07/08/2017 7:07 AM EST) athologist Signature POC Glucose 234 (H) 65 - 199 [facility] mg/dL [facility] Comment: Supplemental ranges: [...] City/[facility]/[place] [address] (ABNORMAL) POCT Glucose (07/08/2017 6:04 AM EST) athologist Signature POC Glucose 225 (H) 65 - 199 [facility] mg[facility]dL [facility] Comment: Supplemental ranges: <140 mg/dL before meals <180 mg/dL all other times of the day Specimen Anatomical Collection Method Collection Time Receive d Time (Source) Location / / Volume Laterality Blood specimen 07/08/2017 6:04 AM 017 6:04 (specimen) EST AM EST Yuan Webber MD POINT OF CARE TEST ORDERABLE S Performing Organization Address City/State/[place] [address] (ABNORMAL) POCT Glucose (07/08/2017 5:31 AM EST) athologist Signature POC Glucose 216 (H) 65 - 199 [facility]dL [facility] Comment: Supplemental ranges: <140 mg/dL before meals <180 mg/dL all other times of the day Specimen Anatomical Collection Method Collection Time Receive d Time (Source) Location / / Volume Laterality Blood specimen 07/08/2017 5:31 AM 017 5:31 (specimen) EST AM EST Yuan Webber MD POINT OF CARE TEST ORDERABLE S Performing Organization Address City/State/[place] [address] (ABNORMAL) POCT Glucose (07/08/2017 4:52 AM EST) athologist Signature POC Glucose 257 (H) 65 - 199 [facility]/dL [facility] Comment: Supplemental ranges: <140 mg/dL before meals <180 mg/dL all other times of the day Specimen Anatomical Collection Method Collection Time Receive d Time (Source) Location / / Volume Laterality Blood specimen 07/08/2017 4:52 AM 017 4:52 (specimen) EST AM EST Daphne Shahid MD POINT OF CARE TEST ORDERABLE S Performing Organization Address City/State/[place] [address] (ABNORMAL) BLOOD GAS 2 ARTERIAL (07/08/2017 4:04 AM EST) Analysis Performed At Patho logist Time Signature pH Art 7.30 (L) 7.35 - [facility] 7.45 [facility] pCO2 Art 41 35 - 45 [facility] mmHg [facility] pO2 Art 83 (L) 85 - 104 [facility] LABORATORY HCO3 Art 19.6 (L) 20.0 - [facility] 26.0 [facility] mmol/L [facility] BE Art -6.8 (L) -3.0 - 3.0 [facility] mmol/L [facility] Hgb Blood Gas 12.2 (L) 13.7 - [facility] 16.5 gm/dL [facility] O2HB Art 93.5 (L) 94.0 - [facility] 97.0 % [facility] COHB Art 0.4 % [facility] [...] [facility] Comment: Noted by aircraft instrument tester. FIO2 Art 40 % [facility] PF Ratio Art 208 [facility] Specimen Anatomical Collection Method Collection Time Receive d Time (Source) Location / / Volume Laterality Blood specimen 07/08/2017 4:04 AM 017 4:04 (specimen) EST AM EST Daphne Shahid MD CHEMISTRY ORDERABLES Performing Organization Address City/State/ZIP Code Phon e Number [address] Scan, Peripheral Blood (07/08/2017 [...] Webber MD HEMATOLOGY ORDERABLES Performing Organization Address City/[facility]/ZIP Code Phon e Number [address] (ABNORMAL) Differential, Automated (07/08/2017 4:00 AM EST) Patholo gist Method Time Signature Neutrophils % 85.4 % [facility] Neutr Abs (ANC) 16.07 (H) 1.70 - [facility] 6.10 [facility] x10(3)/[facility] L LABORATORY Lymphocytes % 3.5 % [facility] Lymphocytes Abs 0.6 (L) 0.9 - 3.2 [facility] x10(3)/[facility] LABORATORY Monocytes % 10.4 % [facility] Monocyte Abs 2.0 (H) 0.3 - 0.9 [facility] x10(3)/[facility] LABORATORY Eosinophils % 0.0 % [facility] Eosinophils Abs 0.0 0.0 - 0.4 [facility] x10(3)/[facility] LABORATORY Basophils % 0.1 % [facility] Basophils Abs 0.0 0.0 - 0.1 [facility] x10(3)/[facility] LABORATORY Immature Gran [...] 0.12 (H) 0.00 - 0.04 x10(3)/[facility] LABORATORY Specimen Anatomical Collection Method Collection Time Receive d Time (Source) Location / / Volume Laterality Blood specimen 07/08/2017 4:00 AM 017 4:09 (specimen) EST AM EST Resulting Agency Comment Spec In Lab Yuan Webber MD HEMATOLOGY ORDERABLES Performing Organization Address City/State/[place] [address] (ABNORMAL) Hemogram (07/08/2017 4:00 AM EST) Analysis Performed At Patho logist Time Signature WBC 18.8 (H) 4.0 - 9.5 [facility] x10(3)/[facility] LABORATORY RBC 4.00 (L) 4.58 - [facility] 5.54 [facility] x10(6)/[facility] LABORATORY Hemoglobin 11.9 (L) 13.7 - [facility] 16.5 gm/dL [facility] Hematocrit 35.9 (L) 40.5 - [facility] 48.5 % [facility] MCV 89.8 82.9 - [facility] 93.1 [facility] LABORATORY MCH 29.8 27.5 - [facility] RYAN 32.1 pg [facility] MCHC 33.1 32.0 - [facility] 35.7 gm/dL [facility] Platelets 232 145 - 357 [facility] x10(3)/[facility] LABORATORY RDWSD 47.6 (H) 36.0 - [facility] RYAN 45.0 [facility] RDWCV 14.5 (H) 11.4 - [facility] RYAN 13.8 % [facility] MPV 9.5 7.6 - 12.9 [facility] LABORATORY nRBC % Auto 0.0 % [facility] nRBC Abs Auto 0.000 0.000 - [facility] 0.000 [facility] x10(3)/[facility] LABORATORY Specimen Anatomical Collection Method Collection Time Receive d Time (Source) Location / / Volume Laterality Blood specimen 07/08/2017 4:00 AM 017 4:09 (specimen) EST AM EST Resulting Agency Comment Spec In Lab Yuan Webber MD HEMATOLOGY ORDERABLES Performing Organization Address City/[facility]/[place] [address] (ABNORMAL) Electrolytes panel (07/08/2017 4:00 AM EST) athologist Signature Sodium 139 135 - 145 [facility] mmol/L [facility] Potassium 4.7 3.5 - 5.0 [facility] mmol/L [facility] Comment: result rechecked-JLK Please [...] Webber MD CHEMISTRY ORDERABLES Performing Organization Address City/[facility]/[place] [address] (ABNORMAL) Cardiac Enzymes (LEB/CGP) (07/08/2017 4:00 AM EST) P athologist Signature Troponin-T 1.88 (H) 0.00 - [facility] 0.00 ng/mL [facility] Comment: [...] additional sample may be indicated. Reference: Third [place] Definition of Myocardial Infarction. Journal of the [place] [employer] 2012;60:1581-98 CK, Total 413 (H) 0 - 200 unit/L [facility] Comment: result rechecked-K Specimen Anatomical Collection Method Collection Time Receive d Time (Source) Location / / Volume Laterality Blood specimen 07/08/2017 4:00 AM 017 4:09 (specimen) EST AM EST Resulting Agency Comment Spec In Lab Yuan Webber MD CHEMISTRY ORDERABLES Performing Organization Address City/State/[place] [address] (ABNORMAL) Glucose, fasting (07/08/2017 4:00 AM EST) athologist Signature Glucose 287 (H) 65 - 99 [facility] Fasting mg/dL [facility] Comment: [...] Webber MD CHEMISTRY ORDERABLES Performing Organization Address City[facility] Code Phon e Number [address] (ABNORMAL) Creatinine (07/08/2017 4:00 AM EST) Analysis Performed At Patho logist Time Signature Creatinine 1.55 (H) 0.80 - KATALINA RYAN 1.50 mg/dL [facility] Estimated GFR 44 (L) >=60 [facility] Comment: The reported eGFR should be multiplied b y 1.2 for patients. The MDRD is not an appropriate measure o f renal function for patients with body mass extremes or in patients with acute kidney failure. [email or web address]/DHnkdep http://KS12/DHMCnkf Specimen Anatomical Collection Method Collection Time Receive d Time (Source) Location / / Volume Laterality Blood specimen 07/08/2017 4:00 AM 017 4:09 (specimen) EST AM EST Resulting Agency Comment Spec In Lab Yuan Webber MD CHEMISTRY ORDERABLES Performing Organization Address City/[facility]/ZIP Code Phon e Number [address] BUN (07/08/2017 4:00 AM EST) P athologist Signature BUN 16 10 - 20 KATALINA RYAN mg/dL [facility] Specimen Anatomical Collection Method Collection Time Receive d Time (Source) Location / / Volume Laterality Blood specimen 07/08/2017 4:00 AM 017 4:09 (specimen) EST AM EST Resulting Agency Comment Spec In Lab Yuan Webber MD CHEMISTRY ORDERABLES Performing Organization Address City/[facility]/ZIP Code Phon e Number [address] (ABNORMAL) POCT Glucose (07/08/2017 3:00 AM EST) P athologist Signature POC Glucose 273 (H) 65 - 199 [facility]/dL [facility] Comment: Supplemental ranges: [...] City/[facility]/[place] [address] (ABNORMAL) POCT Glucose (07/08/2017 1:57 AM EST) P athologist Signature POC Glucose 288 (H) 65 - 199 [facility] mg/dL [facility] Comment: Supplemental ranges: [...] City[facility]/[place] [address] (ABNORMAL) POCT Glucose (07/08/2017 1:01 AM EST) P athologist Signature POC Glucose 315 (H) 65 - 199 [facility] mg/dL [facility] Comment: Supplemental ranges: <140 mg/dL before meals <180 mg/dL all other times of the day Specimen Anatomical Collection Method Collection Time Receive d Time (Source) Location / / Volume Laterality Blood specimen 07/08/2017 1:01 AM 017 1:01 (specimen) EST AM EST Daphne Shahid MD POINT OF CARE TEST ORDERABLE S Performing Organization Address City/State/[place] [address] (ABNORMAL) BLOOD GAS 2 ARTERIAL (07/08/2017 12:09 AM EST) athologist Signature pH Art 7.26 7.35 - [facility] (Critical) 7.45 [facility] Comment: Noted by aircraft instrument tester. pCO2 Art 41 35 - [...] [facility] COHB Art 0.2 % [facility] Comment: Noted by aircraft instrument tester. FIO2 Art 40 % [facility] PF Ratio Art 240 [facility] Specimen Anatomical Collection Method Collection Time Receive d Time (Source) Location / / Volume Laterality Blood specimen Arterial Draw / 07/08/2017 12:09 2016 5:31 (specimen) Unknown AM EST AM EST Resulting Agency Comment Spec In Lab Samy Maldonado MD CHEMISTRY ORDERABLES Performing Organization Address City/[facility]/[place] [address] (ABNORMAL) POCT Glucose (07/07/2017 10:56 PM EST) P athologist Signature POC Glucose 292 (H) 65 - 199 [facility] mg/dL [facility] Comment: Supplemental [...] Address City/State/[place] [address] (ABNORMAL) BLOOD GAS 2 ARTERIAL (07/07/2017 10:04 PM EST) P athologist Signature pH Art 7.22 7.35 - [facility] (Critical) 7.45 [facility] Comment: Noted by aircraft instrument tester. pCO2 Art 42 35 - [...] [facility] COHB Art 0.7 % [facility] [...] [facility] Comment: Noted by aircraft instrument tester. FIO2 Art 40 % [facility] PF Ratio Art 235 [facility] Specimen Anatomical Collection Method Collection Time Receive d Time (Source) Location / / Volume Laterality Blood specimen 07/07/2017 10:04 7 (specimen) PM EST 10:04 PM EST Daphne Shahid MD CHEMISTRY ORDERABLES Performing Organization Address City/State/[place] [address] (ABNORMAL) Hemoglobin (07/07/2017 10:00 PM EST) athologist Signature Hemoglobin 12.8 (L) 13.7 - [facility] 16.5 gm/dL [facility] Specimen Anatomical Collection Method Collection Time Receive d Time (Source) Location / / Volume Laterality Blood specimen 07/07/2017 10:00 7 (specimen) PM EST 10:13 PM EST Resulting Agency Comment Spec In Lab Yuan Webber MD HEMATOLOGY ORDERABLES Performing Organization Address City[facility] Phon e Number [address] (ABNORMAL) Potassium (07/07/2017 10:00 PM EST) athologist [facility] Potassium 3.4 (L) 3.5 - 5.0 [facility] mmol/L [facility] Comment: Please note: [...] Webber MD CHEMISTRY ORDERABLES Performing Organization Address [facility] [place] [address] (ABNORMAL) POCT Glucose (07/07/2017 8:49 PM EST) athologist Signature POC Glucose 241 (H) 65 - 199 [facility] mg/dL [facility] Comment: Supplemental ranges: [...] [facility]/ZIP Code Phon e Number [address] Prepare Albumin 5% in [...] BROWN BLOOD BANK ORDERABLES Performing Organization Address City/[facility]/ZIP Code Phon e Number [address] EKG 12 Lead (07/07/2017 7:17 PM EST) Component Value Ref Range Test Analysis Performed Pathologis t Method Time At Signature Ventricular rate 75 BPM MUSE SYSTEM Atrial Rate 75 BPM MUSE SYSTEM P-R Interval 168 ms MUSE SYSTEM QRS Duration 104 ms MUSE SYSTEM Q-T Interval 462 ms MUSE SYSTEM QTC Calculated 515 ms MUSE SYSTEM (Bezet) Calculated P [place] 52 degrees MUSE SYSTEM Calculated R [place] -40 degrees MUSE SYSTEM Calculated T [place] 39 degrees MUSE SYSTEM INTERPRETATION Normal sinus [...] athologist Signature pH Art 7.21 7.35 - [facility] (Critical) 7.45 [facility] Comment: Noted by aircraft instrument tester. pCO2 Art 50 (H) 35 [...] [facility] COHB Art 0.5 % [facility] Comment: Noted by aircraft instrument tester. Please note: Patients with WBC [...] [facility] Comment: Noted by aircraft instrument tester. FIO2 Art 100 % [facility] PF Ratio Art 238 [facility] Specimen Anatomical Collection Method Collection Time Receive d Time (Source) Location / / Volume Laterality Blood specimen 07/07/2017 6:57 PM 017 6:57 (specimen) EST PM EST Daphne Shahid MD CHEMISTRY ORDERABLES Performing Organization Address City/State/[place] [address] (ABNORMAL) BLOOD GAS 2 ARTERIAL (07/07/2017 5:31 PM EST) athologist Signature pH Art 7.29 7.35 - [facility] (Critical) 7.45 [facility] Comment: Noted by aircraft instrument tester. pCO2 Art 48 (H) 35 [...] [facility] COHB Art 0.3 % [facility] [...] Shahid MD CHEMISTRY ORDERABLES Performing Organization Address City/[facility]/[place] [address] Fibrinogen (07/07/2017 5:30 PM EST) athologist Signature Fibrinogen 224 180 - 510 [facility] mg/dL [facility] Comment: Called by: JEET, [...] Perez MD HEMATOLOGY ORDERABLES Performing Organization Address City/[facility]/ZIP Code Phon e Number [address] APTT (07/07/2017 5:30 PM EST) athologist Signature PTT 30 25 - 35 sec [facility] Comment: The recommended therapeutic range for fu ll dose, unfractionated heparin at [facility] is 80 ? 114 [...] Perez MD HEMATOLOGY ORDERABLES Performing Organization Address City[facility]/ZIP [facility] Phon e Number [address] (ABNORMAL) Prothrombin Time (07/07/2017 [...] City/State/ZIP Code Phon e Number [place] [id number]OSP[address] LAB[address]ORY Drive (ABNORMAL) Hemogram (07/07/2017 5:30 PM EST) P athologist Signature WBC 19.6 (H) 4.0 - 9.5 [facility] x10(3)/[facility] LABORATORY RBC 3.08 (L) 4.58 - [facility] 5.54 [facility] x10(6)/[facility] LABORATORY Hemoglobin 9.2 (L) 13.7 - [facility] 16.5 gm/dL [facility] Hematocrit 28.0 (L) 40.5 - [facility] 48.5 % [facility] Comment: This result has been called to MONICA MORAN by DONALD GROSSMAN on 07 07 2017 at 1759, and has been read back. MCV 90.9 82.9 - 93.1 fL [facility] MCH 29.9 27.5 - 32.1 pg [facility] MCHC 32.9 32.0 - 35.7 gm/dL [facility] Platelets 155 145 - 357 x10(3)/[facility] LABORATORY RDWSD 46.5 (H) 36.0 - 45.0 fL [facility] RDWCV 14.1 (H) 11.4 [...] Perez MD HEMATOLOGY ORDERABLES Performing Organization Address [facility] Phon e Number [address] Prepare Platelets, Apheresis (07/07/2017 5:00 PM EST) athologist Signature Dispensed? Yes [facility] Specimen Anatomical Collection Method Collection Time Receive d Time (Source) Location / / Volume Laterality Blood specimen 07/07/2017 5:00 PM 017 4:58 (specimen) EST PM EST Daphne Shahid MD BLOOD BANK ORDERABLES Performing Organization Address [facility] Phon e Number [address] Platelet count (07/07/2017 4:55 PM EST) athologist Signature Platelets 177 145 - 357 [facility] x10(3)/[facility] LABORATORY Plat Immature 1.5 0.0 - 7.4 [facility] Comment: Limitation of the Immature Platelet Frac tion (IPF)-May be less reliable when the platelet count is less than 64e533/u L due to statistical imprecision. The IPF [...] in a decreased state of production. References: [employer] The Clinical Value of the Immature Platelet Fraction (IPF) in Cell Recovery Document Number 10-1143 12/2010 [employer] The Role of the Imm ature Platelet Fraction (IPF) in the Differential Diagnosis of Thrombocytopen ia, Document [id number] V012/04/13 P012/06 Specimen Anatomical Collection Method Collection Time Receive d Time (Source) Location / / Volume Laterality Blood specimen 07/07/2017 4:55 PM 017 5:13 (specimen) EST PM EST Resulting Agency Comment Spec In Lab Daphne Shahid MD HEMATOLOGY ORDERABLES Performing Organization Address City/[facility]/[place] [address] (ABNORMAL) Hemoglobin and Hematocrit, blood (07/07/2017 4:55 PM EST) P athologist Signature Hemoglobin 9.1 (L) 13.7 - 16.5 [facility] gm/dL [facility] Comment: This result has [...] Shahid MD HEMATOLOGY ORDERABLES Performing Organization Address City/[facility]/[place] [address] (ABNORMAL) BLOOD GAS 2 ARTERIAL (07/07/2017 4:38 PM EST) Analysis Performed At Patho logist Time Signature pH Art 7.37 7.35 - [facility] 7.45 [facility] pCO2 Art 44 35 - 45 [facility] LABORATORY pO2 Art 322 (H) 85 - 104 [facility] HCO3 Art 24.9 20.0 - [facility] 26.0 [facility] mmol/L [facility] LABORATORY BE Art -0.4 -3.0 - 3.0 [facility] mmol/L [facility] Hgb Blood Gas 10.1 (L) 13.7 - [facility] 16.5 gm/dL [facility] O2HB Art 98.7 (H) 94.0 - [facility] 97.0 % [facility] COHB Art 0.1 % [facility] [...] [facility] Comment: Noted by aircraft instrument tester. Note: ??Total bilirubin higher than [...] Address City/State/[place] [address] (ABNORMAL) BLOOD GAS 2 VENOUS (07/07/2017 4:06 PM EST) Analysis Performed At Patho logist Time Signature pH Cody 7.31 (L) 7.32 - [facility] 7.42 [facility] pCO2 Cody 47 41 - 51 [facility] LABORATORY pO2 Coyd 53 (H) 25 - 40 [facility] LABORATORY HCO3 Cody 22.7 mmol/L [facility] BE Cody -3.7 mmol/L [facility] Hgb Blood Gas 10.2 (L) 13.7 - [facility] 16.5 gm/dL [facility] O2HB [place] 81.0 % [facility] [...] [facility] Comment: Noted by aircraft instrument tester. Note: ??Total bilirubin higher than 20 m g/dL may lead to falsely low ionized calcium. CL Whole Blood 100 98 - 107 mmol/L [facility] Gluc Whole Bld 231 (H) 65 - 199 mg/dL [facility] Comment: Diabetes: >=200 mg/dL plus symp toms Lactate WB 1.1 0.5 - 2.2 mmol/L [facility] BGas Source Venous [facility] LAB[facility]ORY Specimen Anatomical Collection Method Collection Time Receive d Time (Source) Location / / Volume Laterality Blood specimen 07/07/2017 4:06 PM 017 4:06 (specimen) EST PM EST Daphne Shahid MD CHEMISTRY ORDERABLES Performing Organization Address City/State/[place] [address] (ABNORMAL) BLOOD GAS 2 ARTERIAL (07/07/2017 4:05 PM EST) Analysis Performed At Patho logist Time Signature pH Art 7.36 7.35 - [facility] 7.45 [facility] pCO2 Art 40 35 - 45 [facility] LABORATORY pO2 Art 282 (H) 85 - 104 [facility] LABORATORY HCO3 Art 22.1 20.0 - [facility] 26.0 [facility] mmol/L [facility] LABORATORY BE Art -3.4 (L) -3.0 - 3.0 [facility] mmol/L [facility] Hgb Blood Gas 10.2 (L) 13.7 - [facility] 16.5 gm/dL [facility] O2HB Art 98.4 (H) 94.0 - [facility] HOSPITAL 97.0 % [facility] COHB Art 0.3 % [place] [facility] Comment: Noted by aircraft instrument tester. Note: ??Total bilirubin higher than [...] Address City/State/[place] [address] (ABNORMAL) BLOOD GAS 2 ARTERIAL (07/07/2017 2:29 PM EST) Analysis Performed At Patho logist Time Signature pH Art 7.43 7.35 - [facility] 7.45 [facility] pCO2 Art 36 35 - 45 [facility] LABORATORY pO2 Art 221 (H) 85 - 104 [facility] LABORATORY HCO3 Art 23.2 20.0 - [facility] 26.0 [facility] mmol/L [facility] BE Art -1.2 -3.0 - 3.0 [facility] mmol/L [facility] Hgb Blood Gas 13.9 13.7 - [facility] 16.5 gm/dL [facility] O2HB Art 97.8 (H) 94.0 - [facility] 97.0 % [facility] COHB Art 1.1 % [place] [...] Shahid MD CHEMISTRY ORDERABLES Performing Organization Address City/[facility] [place] [address] Prepare Coag Factors (Non-Hemophilia) (07/07/2017 1:25 PM EST) P athologist Signature Dispensed? Yes [facility] Specimen Anatomical Collection Method Collection Time Receive d Time (Source) Location / / Volume Laterality Blood specimen 07/07/2017 1:25 PM 017 1:21 (specimen) EST PM EST Daphne Shahid MD BLOOD BANK ORDERABLES Performing Organization Address City/[facility]/[place] [address] Prepare RBC (07/07/2017 1:10 PM EST) P athologist Signature Dispensed? Yes [facility] Specimen Anatomical Collection Method Collection Time Receive d Time (Source) Location / / Volume Laterality Blood specimen 07/07/2017 1:10 PM 017 1:05 (specimen) EST PM EST Daphne Shahid MD BLOOD BANK ORDERABLES Performing Organization Address City/[facility]/[place] [address] POCT Glucose (07/07/2017 11:56 AM EST) athologist Signature POC Glucose 188 65 - 199 [place] [facility] mg/dL [facility] Comment: Supplemental ranges: <140 mg/dL before meals <180 mg/dL all other times of the day Specimen Anatomical Collection Method Collection Time Receive d Time (Source) Location / / Volume Laterality Blood specimen 07/07/2017 11:56 7 (specimen) AM EST 11:56 AM EST Daphne Shahid MD POINT OF CARE TEST ORDERABLE S Performing Organization Address City/State/ZIP Code Phon e Number [address] POCT Glucose (07/07/2017 11:05 AM EST) athologist Signature POC Glucose 168 65 - 199 [facility] mg/dL [facility] Comment: Supplemental ranges: <140 mg/dL before meals <180 mg/dL all other times of the day Specimen Anatomical Collection Method Collection Time Receive d Time (Source) Location / / Volume Laterality Blood specimen 07/07/2017 11:05 7 (specimen) AM EST 11:05 AM EST Daphne Shahid MD POINT OF CARE TEST ORDERABLE S Performing Organization Address City/State/[place] [address] POCT Glucose (07/07/2017 10:02 AM EST) athologist Signature POC Glucose 191 65 - 199 [place] mg/dL [facility] Comment: Supplemental ranges: <140 mg/dL before meals <180 mg/dL all other times of the day Specimen Anatomical Collection Method Collection Time Receive d Time (Source) Location / / Volume Laterality Blood specimen 07/07/2017 10:02 7 (specimen) AM EST 10:02 AM EST Daphne Shahid MD POINT OF CARE TEST ORDERABLE S Performing Organization Address City/State/[place] [address] POCT Glucose (07/07/2017 7:53 AM EST) athologist Signature POC Glucose 178 65 - 199 [facility] mg/dL [facility] Comment: Supplemental ranges: <140 mg/dL before meals <180 mg/dL all other times of the day Specimen Anatomical Collection Method Collection Time Receive d Time (Source) Location / / Volume Laterality Blood specimen 07/07/2017 7:53 AM 017 7:53 (specimen) EST AM EST Daphne Shahid MD POINT OF CARE TEST ORDERABLE S Performing Organization Address City/State/[place] [address] POCT Glucose (07/07/2017 7:03 AM EST) athologist Signature POC Glucose 188 65 - 199 [facility] mg/dL [facility] Comment: Supplemental ranges: <140 mg/dL before meals <180 mg/dL all other times of the day Specimen Anatomical Collection Method Collection Time Receive d Time (Source) Location / / Volume Laterality Blood specimen 07/07/2017 7:03 AM 017 7:03 (specimen) EST AM EST Daphne Shahid MD POINT OF CARE TEST ORDERABLE S Performing Organization Address City/State/[place] [address] (ABNORMAL) POCT Glucose (07/07/2017 6:17 AM EST) athologist Signature POC Glucose 207 (H) 65 - 199 [facility] mg/dL [facility] Comment: Supplemental ranges: <140 mg/dL before meals <180 mg/dL all other times of the day Specimen Anatomical Collection Method Collection Time Receive d Time (Source) Location / / Volume Laterality Blood specimen 07/07/2017 6:17 AM 017 6:17 (specimen) EST AM EST Daphne Shahid MD POINT OF CARE TEST ORDERABLE S Performing Organization Address City/State/[place] [address] Differential, Automated (07/07/2017 5:15 AM EST) P athologist Signature Neutrophils % 69.7 % [facility] Neutr Abs (ANC) 5.32 1.70 - [facility] 6.10 [facility] x10(3)/[facility] LABORATORY Lymphocytes % 16.3 % [facility] Lymphocytes Abs 1.2 0.9 - 3.2 [facility] x10(3)/[facility] LABORATORY Monocytes % 10.5 % [facility] Monocyte Abs 0.8 0.3 - 0.9 [facility] x10(3)/[facility] LABORATORY Eosinophils % 2.5 % [facility] Eosinophils Abs 0.2 0.0 - 0.4 [facility] x10(3)/[facility] LABORATORY Basophils % 0.7 % [facility] Basophils Abs 0.0 0.0 - 0.1 [facility] x10(3)/[facility] LABORATORY Immature Gran [...] x10(3)/[facility] Specimen Anatomical Collection Method Collection Time Receive d Time (Source) Location / / Volume Laterality Blood specimen 07/07/2017 5:15 AM 017 5:34 (specimen) EST AM EST Resulting Agency Comment Spec In Lab Daphne Shahid MD HEMATOLOGY ORDERABLES Performing Organization Address City/State/[place] [address] (ABNORMAL) Hemogram (07/07/2017 5:15 AM EST) Analysis Performed At Patho logist Time Signature WBC 7.6 4.0 - 9.5 [facility] x10(3)/[facility] LABORATORY RBC 4.82 4.58 - [facility] 5.54 [facility] x10(6)/[facility] LABORATORY Hemoglobin 14.4 13.7 [facility] 16.5 gm/dL [facility] Hematocrit 42.1 40.5 - [facility] 48.5 % [facility] MCV 87.3 82.9 - [facility] 93.1 [facility] LABORATORY MCH 29.9 27.5 - [facility] 32.1 pg [facility] MCHC 34.2 32.0 - [facility] 35.7 gm/dL [facility] Platelets 188 145 - 357 [facility] x10(3)/[facility] LABORATORY RDWSD 45.1 (H) 36.0 - [facility] 45.0 [facility] LABORATORY RDWCV 14.3 (H) 11.4 - [facility] 13.8 % [facility] MPV 9.4 7.6 - 12.9 [facility] LABORATORY nRBC % Auto 0.0 % [facility] nRBC Abs Auto 0.000 0.000 - [facility] 0.000 [facility] x10(3)/[facility] LABORATORY Specimen Anatomical Collection Method Collection Time Receive d Time (Source) Location / / Volume Laterality Blood specimen 07/07/2017 5:15 AM 017 5:34 (specimen) EST AM EST Resulting Agency Comment Spec In Lab Daphne Shahid MD HEMATOLOGY ORDERABLES Performing Organization Address City/State/[place] [address] (ABNORMAL) APTT (07/07/2017 5:15 AM EST) P athologist Signature PTT 69 (H) 25 - 35 sec [facility] Comment: The recommended therapeutic range for fu ll dose, unfractionated heparin at [facility] is 80 ? 114 [...] Address City/State/ZIP Code Phon e Number [address] Magnesium (07/07/2017 5:15 AM EST) athologist Signature Magnesium 0.94 0.69 - 1.07 [facility] mmol/L [facility] Specimen Anatomical Collection Method Collection Time Receive d Time (Source) Location / / Volume Laterality Blood specimen 07/07/2017 5:15 AM 017 5:34 (specimen) EST AM EST Resulting Agency Comment Spec In Lab Daphne Shahid MD CHEMISTRY ORDERABLES Performing Organization Address City[facility] Code Phon e Number [address] (ABNORMAL) Basic Metabolic Panel (non-fasting) (07/07/2017 5:15 AM EST) athologist Signature Glucose Lvl 203 (H) 65 - 199 [facility] mg/dL [facility] Comment: Diabetes: [...] or in patients with acute kidney failure. [email or web address] Specimen Anatomical Collection Method Collection Time Receive d Time (Source) Location / / Volume Laterality Blood specimen 07/07/2017 5:15 AM 017 5:34 (specimen) EST AM EST Resulting Agency Comment Spec In Lab Daphne Shahid MD CHEMISTRY ORDERABLES Performing Organization Address City/State/[place] [address] (ABNORMAL) Cardiac Enzymes (LEB/CGP) (07/07/2017 5:15 AM EST) P athologist Signature Troponin-T 2.07 (H) 0.00 [facility] ng/mL [facility] Comment: The [...] additional sample may be indicated. Reference: Third [place] Definition of Myocardial Infarction. Journal of the [place] [employer] 2012;60:1581-98 CK, Total 88 0 - 200 unit/L [facility] Specimen Anatomical Collection Method Collection Time Receive d Time (Source) Location / / Volume Laterality Blood specimen 07/07/2017 5:15 AM 017 5:34 (specimen) EST AM EST Resulting Agency Comment Spec In Lab Daphne Shahid MD CHEMISTRY ORDERABLES Performing Organization Address City/State/ZIP Code Phon e Number [address] POCT Glucose (07/07/2017 5:01 AM EST) athologist Signature POC Glucose 182 65 - [address] [facility] mg/dL [facility] Comment: Supplemental ranges: <140 mg/dL before meals <180 mg/dL all other times of the day Specimen Anatomical Collection Method Collection Time Receive d Time (Source) Location / / Volume Laterality Blood specimen 07/07/2017 5:01 AM 017 5:01 (specimen) EST AM EST Daphne Shahid MD POINT OF CARE TEST ORDERABLE S Performing Organization Address City/State/ZIP Code Phon e Number [address] POCT Glucose (07/07/2017 4:08 AM EST) athologist Signature POC Glucose 199 65 - 199 [facility] Comment: Supplemental ranges: <140 mg/dL before meals <180 mg/dL all other times of the day Specimen Anatomical Collection Method Collection Time Receive d Time (Source) Location / / Volume Laterality Blood specimen 07/07/2017 4:08 AM 017 4:08 (specimen) EST AM EST Daphne Shahid MD POINT OF CARE TEST ORDERABLE S Performing Organization Address City/State/ZIP Code Phon e Number [address] POCT Glucose (07/07/2017 3:03 AM EST) athologist Signature POC Glucose 188 65 - 199 [facility]/dL [facility] Comment: Supplemental ranges: [...] [facility]/[place] [address] (ABNORMAL) POCT Glucose (07/07/2017 2:08 AM EST) athologist Signature POC Glucose 200 (H) 65 - 199 [facility] mg/dL [facility] Comment: Supplemental ranges: [...] [facility]/[place] [address] (ABNORMAL) POCT Glucose (07/07/2017 1:31 AM EST) athologist Signature POC Glucose 209 (H) 65 - 199 [facility] mg/dL [facility] Comment: Supplemental ranges: [...] [facility]/[place] [address] XR Chest PA or [...] Signature POC Glucose 161 65 - 199 [facility] mg/dL [facility] Comment: Supplemental [...] Address City/State/[place] [address] (ABNORMAL) APTT (07/07/2017 12:00 AM EST) athologist Signature PTT 103 (H) 25 - 35 sec [facility] Comment: The recommended therapeutic range for fu ll dose, unfractionated heparin at [facility] is 80 ? 114 [...] Address City/State/ZIP Code Phon e Number [address] POCT Glucose (07/06/2017 9:55 PM EST) athologist Signature POC Glucose 109 65 - 199 [place] mg/dL [facility] Comment: Supplemental ranges: [...] City[facility]/ZIP Code Phon e Number [address] POCT Glucose (07/06/2017 9:04 PM EST) athologist Signature POC Glucose 120 65 - 199 [place] mg/dL [facility] Comment: Supplemental ranges: [...] City/[facility]/ZIP Code Phon e Number [address] POCT Glucose (07/06/2017 7:45 PM EST) athologist Signature POC Glucose 158 65 - 199 [place] mg/dL [facility] Comment: Supplemental ranges: [...] [facility]/[place] [address] Potassium (07/06/2017 7:40 PM EST) athologist Signature Potassium 3.9 3.5 - 5.0 [facility] mmol/L [facility] Comment: Please [...] Shahid MD CHEMISTRY ORDERABLES Performing Organization Address [facility]/[place] [address] (ABNORMAL) Cardiac Enzymes (LEB/CGP) (07/06/2017 7:40 PM EST) athologist Signature Troponin-T 2.27 (H) 0.00 - [place] 0.00 ng/mL [facility] Comment: The [...] additional sample may be indicated. Reference: Third [place] Definition of Myocardial Infarction. Journal of the [place] [employer] 2012;60:1581-98 CK, Total 93 0 - 200 unit/L [facility] Specimen Anatomical Collection Method Collection Time Receive d Time (Source) Location / / Volume Laterality Blood specimen 07/06/2017 7:40 PM 017 7:52 (specimen) EST PM EST Resulting Agency Comment Spec In Lab Daphne Shahid MD CHEMISTRY ORDERABLES Performing Organization Address [facility]/[place] [address] (ABNORMAL) POCT Glucose (07/06/2017 7:13 PM EST) P athologist Signature POC Glucose 200 (H) 65 - 199 [facility] mg/dL [facility] Comment: Supplemental [...] [facility]/[place] [address] (ABNORMAL) APTT (07/06/2017 6:15 PM EST) P athologist Signature PTT 94 (H) 25 - 35 sec [facility] Comment: The recommended therapeutic range for fu ll dose, unfractionated heparin at [facility] is 80 ? 114 [...] Shahid MD HEMATOLOGY ORDERABLES Performing Organization Address City/[facility]/[place] [address] (ABNORMAL) POCT Glucose (07/06/2017 6:03 PM EST) athologist Signature POC Glucose 236 (H) 65 - 199 [place] mg/dL [facility] Comment: Supplemental ranges: [...] [facility]/[place] [address] (ABNORMAL) POCT Glucose (07/06/2017 5:01 PM EST) athologist Signature POC Glucose 235 (H) 65 - 199 [place] mg/dL [facility] Comment: Supplemental ranges: [...] [facility]/[place] [address] (ABNORMAL) POCT Glucose (07/06/2017 4:06 PM EST) athologist Signature POC Glucose 202 (H) 65 - 199 [place] mg/dL [facility] Comment: Supplemental ranges: <140 mg/dL before meals <180 mg/dL all other times of the day Specimen Anatomical Collection Method Collection Time Receive d Time (Source) Location / / Volume Laterality Blood specimen 07/06/2017 4:06 PM 017 4:06 (specimen) EST PM EST Daphne Shahid MD POINT OF CARE TEST ORDERABLE S Performing Organization Address City/State/ZIP Code Phon e Number [address] POCT Glucose (07/06/2017 2:59 PM EST) athologist Signature POC Glucose 178 65 - [address] [facility] mg/dL [facility] Comment: Supplemental ranges: [...] [facility]/[place] [address] (ABNORMAL) Cardiac Enzymes (LEB/CGP) (07/06/2017 2:10 PM EST) athologist Signature Troponin-T 2.34 (H) 0.00 - [facility] 0.00 ng/mL [facility] Comment: The [...] additional sample may be indicated. Reference: Third [place] Definition of Myocardial Infarction. Journal of the [place] [employer] 2012;60:1581-98 CK, Total 101 0 - 200 unit/L [facility] Specimen Anatomical Collection Method Collection Time Receive d Time (Source) Location / / Volume Laterality Blood specimen 07/06/2017 2:10 PM 017 2:26 (specimen) EST PM EST Resulting Agency Comment Spec In Lab Daphne Shahid MD CHEMISTRY ORDERABLES Performing Organization Address [facility] Phon e Number [address] POCT Glucose (07/06/2017 2:08 PM EST) P athologist Signature POC Glucose 192 65 - 199 [facility] mg/dL [facility] Comment: Supplemental [...] [facility]/[place] [address] POCT Glucose (07/06/2017 1:04 PM EST) P athologist Signature POC Glucose 162 65 - [address] [facility] mg/dL [facility] Comment: Supplemental ranges: [...] City[facility]/[place] [address] [facility] [address] POCT Glucose (07/06/2017 12:05 PM EST) P athologist Signature POC Glucose 196 65 - 199 [facility] mg/dL [facility] Comment: Supplemental [...] City/[facility]/ZIP Code Phon e Number [address] EKG 12 Lead (07/06/2017 12:00 PM EST) Component Value Ref Range Test Analysis Performed Pathologis t Method Time At Signature Ventricular rate 91 BPM MUSE SYSTEM Atrial Rate 91 BPM MUSE SYSTEM P-R Interval 140 ms MUSE SYSTEM QRS Duration 94 ms MUSE SYSTEM Q-T Interval 394 ms MUSE SYSTEM QTC Calculated 484 ms MUSE SYSTEM (Bezet) Calculated P [place] 36 degrees MUSE SYSTEM Calculated R [place] -19 degrees MUSE SYSTEM Calculated T [place] 104 degrees MUSE SYSTEM INTERPRETATION Normal sinus rhythm MUSE SYSTEM 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) ST & T wave abnormality, consider lateral ischemia Abnormal ECG When compared with ECG of 05-JUL-2017 20:39, No significant change was found Confirmed by MD Luci, Taurus Braun ([id number]) on 07/06/2017 5:07:33 PM Specimen Anatomical Collection [...] [facility]/[place] [address] Antibody screen (07/06/2017 12:00 PM EST) Patholo gist Method Time Signature Ab Screen Negative [facility] LABORATORY Expires at 07/09/2017 [facility] [id number] on: [facility] Specimen Anatomical Collection Method Collection Time Receive d Time (Source) Location / / Volume Laterality Blood specimen 07/06/2017 12:00 7 (specimen) PM EST 12:24 PM EST Resulting Agency Comment Spec In Lab Daphne Shahid MD BLOOD BANK ORDERABLES Performing Organization Address [facility]/[place] [address] ABO/Rh Typing (07/06/2017 12:00 [...] City/[facility]/[place] [address] Prothrombin Time (07/06/2017 11:24 [...] Shahid MD HEMATOLOGY ORDERABLES Performing Organization Address City/[facility]/ZIP Code Phon e Number [address] (ABNORMAL) APTT (07/06/2017 11:24 AM EST) P athologist Signature PTT 52 (H) 25 - 35 sec [facility] Comment: The recommended therapeutic range for fu ll dose, unfractionated heparin at [facility] is 80 ? 114 [...] Shahid MD HEMATOLOGY ORDERABLES Performing Organization Address City/[facility]/[place] [address] POCT Glucose (07/06/2017 11:02 AM EST) P athologist Signature POC Glucose 187 65 - 199 [facility] mg/dL [facility] Comment: Supplemental [...] City/[facility]/[place] [address] POCT Glucose (07/06/2017 10:18 AM EST) P athologist Signature POC Glucose 193 65 - 199 [place] mg/dL [facility] Comment: Supplemental ranges: <140 mg/dL before meals <180 mg/dL all other times of the day Specimen Anatomical Collection Method Collection Time Receive d Time (Source) Location / / Volume Laterality Blood specimen 07/06/2017 10:18 7 (specimen) AM EST 10:18 AM EST Daphne Shahid MD POINT OF CARE TEST ORDERABLE S Performing Organization Address City/State/[place] [address] POCT Glucose (07/06/2017 9:25 AM EST) athologist Signature POC Glucose 182 65 - 199 [facility] Comment: Supplemental ranges: <140 mg/dL before meals <180 mg/dL all other times of the day Specimen Anatomical Collection Method Collection Time Receive d Time (Source) Location / / Volume Laterality Blood specimen 07/06/2017 9:25 AM 017 9:25 (specimen) EST AM EST Daphne Shahid MD POINT OF CARE TEST ORDERABLE S Performing Organization Address City/State/[place] [address] (ABNORMAL) Cardiac Enzymes (LEB/CGP) (07/06/2017 8:10 AM EST) athologist [facility] Troponin-T 2.26 (H) 0.00 - [place] 0.00 ng/mL [facility] Comment: The [...] additional sample may be indicated. Reference: Third [place] Definition of Myocardial Infarction. Journal of the [place] [employer] 2012;60:1581-98 CK, Total 124 0 - 200 unit/L [facility] Specimen Anatomical Collection Method Collection Time Receive d Time (Source) Location / / Volume Laterality Blood specimen 07/06/2017 8:10 AM 017 8:23 (specimen) EST AM EST Resulting Agency Comment Spec In Lab Daphne Shahid MD CHEMISTRY ORDERABLES Performing Organization Address City/[facility]/ZIP Code Phon e Number [address] Magnesium (07/06/2017 8:10 AM EST) P athologist Signature Magnesium 0.84 0.69 - 1.07 [facility] mmol/L [facility] Specimen Anatomical Collection Method Collection Time Receive d Time (Source) Location / / Volume Laterality Blood specimen 07/06/2017 8:10 AM 017 8:21 (specimen) EST AM EST Resulting Agency Comment Spec In Lab Daphne Shahid MD CHEMISTRY ORDERABLES Performing Organization Address City/[facility] [place] [address] [address] (ABNORMAL) Basic Metabolic Panel (non-fasting) (07/06/2017 8:10 AM EST) P athologist Signature Glucose Lvl 199 65 - 199 [facility] mg/dL [facility] Comment: Diabetes: [...] or in patients with acute kidney failure. [email or web address] [email or web address] Specimen Anatomical Collection Method Collection Time Receive d Time (Source) Location / / Volume Laterality Blood specimen 07/06/2017 8:10 AM 017 8:21 (specimen) EST AM EST Resulting Agency Comment Spec In Lab Daphne Shahid MD CHEMISTRY ORDERABLES Performing Organization Address City/[facility]/[place] [address] POCT Glucose (07/06/2017 7:34 AM EST) P athologist Signature POC Glucose 198 65 - 199 [facility] mg/dL [facility] Comment: Supplemental [...] [facility]/[place] [address] POCT Glucose (07/06/2017 7:03 AM EST) P athologist Signature POC Glucose 181 65 - 199 [place] mg/dL [facility] Comment: Supplemental ranges: <140 mg/dL before meals <180 mg/dL all other times of the day Specimen Anatomical Collection Method Collection Time Receive d Time (Source) Location / / Volume Laterality Blood specimen 07/06/2017 7:03 AM 017 7:03 (specimen) EST AM EST Daphne Shahid MD POINT OF CARE TEST ORDERABLE S Performing Organization Address City/State/ZIP Code Phon e Number [address] XR Chest PA or [...] 172 65 - [address] [facility] mg/dL [facility] Comment: Supplemental ranges: <140 mg/dL before meals <180 mg/dL all other times of the day Specimen Anatomical Collection Method Collection Time Receive d Time (Source) Location / / Volume Laterality Blood specimen 07/06/2017 6:21 AM 017 6:21 (specimen) EST AM EST Daphne Shahid MD POINT OF CARE TEST ORDERABLE S Performing Organization Address City/State/[place] [address] POCT Glucose (07/06/2017 5:08 AM EST) athologist Signature POC Glucose 154 65 - [address] [facility] mg/dL [facility] Comment: Supplemental ranges: <140 mg/dL before meals <180 mg/dL all other times of the day Specimen Anatomical Collection Method Collection Time Receive d Time (Source) Location / / Volume Laterality Blood specimen 07/06/2017 5:08 AM 017 5:08 (specimen) EST AM EST Daphne Shahid MD POINT OF CARE TEST ORDERABLE S Performing Organization Address City/State/[place] [address] POCT Glucose (07/06/2017 4:05 AM EST) athologist Signature POC Glucose 142 65 - [address] [facility] mg/dL [facility] Comment: Supplemental ranges: [...] [facility]/ZIP Code Phon e Number [address] POCT Glucose (07/06/2017 3:00 AM EST) athologist [facility] POC Glucose 116 65 - 199 [facility] mg/dL [facility] Comment: Supplemental [...] [facility]/ZIP Code Phon e Number [address] Potassium (07/06/2017 2:20 AM EST) athologist [facility] Potassium 3.9 3.5 - 5.0 [facility] mmol/L [facility] Comment: Please [...] Shahid MD CHEMISTRY ORDERABLES Performing Organization Address City[facility]/ZIP Code Phon e Number [address] Differential, Automated (07/06/2017 2:20 AM EST) athologist [facility] Neutrophils % 72.9 % [facility] LABORATORY Neutr Abs (ANC) 5.53 1.70 - [facility] 6.10 [facility] x10(3)/[facility] LABORATORY Lymphocytes % 16.4 % [facility] LABORATORY Lymphocytes Abs 1.2 0.9 - 3.2 [facility] x10(3)/[facility] LABORATORY Monocytes % 9.4 % [facility] LABORATORY Monocyte Abs 0.7 0.3 - 0.9 [facility] x10(3)/[facility] LABORATORY Eosinophils % 0.5 % [facility] LABORATORY Eosinophils Abs 0.0 0.0 - 0.4 [facility] x10(3)/[facility] LABORATORY Basophils % 0.4 % [facility] LABORATORY Basophils Abs 0.0 0.0 - 0.1 [facility] x10(3)/[facility] LABORATORY Immature Gran [...] x10(3)/[facility] LABORATORY Specimen Anatomical Collection Method Collection Time Receive d Time (Source) Location / / Volume Laterality Blood specimen 07/06/2017 2:20 AM 017 2:33 (specimen) EST AM EST Resulting Agency Comment Spec In Lab Daphne Shahid MD HEMATOLOGY ORDERABLES Performing Organization Address City/State/[place] [address] (ABNORMAL) Hemogram (07/06/2017 2:20 AM EST) Analysis Performed At Patho logist Time Signature WBC 7.6 4.0 - 9.5 [facility] x10(3)/[facility] LABORATORY RBC 4.52 (L) 4.58 - [facility] 5.54 [facility] x10(6)/[facility] LABORATORY Hemoglobin 13.4 (L) 13.7 - [place] [facility] 16.5 gm/dL [facility] Hematocrit 39.7 (L) 40.5 - [place] 48.5 % [facility] MCV 87.8 82.9 - [facility] 93.1 [facility] LABORATORY MCH 29.6 27.5 - [place] 32.1 pg [facility] MCHC 33.8 32.0 - [place] 35.7 gm/dL [facility] Platelets 189 145 - 357 [facility] x10(3)/[facility] LABORATORY RDWSD 45.6 (H) 36.0 - [facility] 45.0 [facility] LABORATORY RDWCV 14.3 (H) 11.4 - [facility] RYAN 13.8 % [facility] MPV 9.1 7.6 - 12.9 [facility] LABORATORY nRBC % Auto 0.0 % [facility] LABORATORY nRBC Abs Auto 0.000 0.000 - [facility] RYAN 0.000 [facility] x10(3)/[facility] LABORATORY Specimen Anatomical Collection Method Collection Time Receive d Time (Source) Location / / Volume Laterality Blood specimen 07/06/2017 2:20 AM 017 2:33 (specimen) EST AM EST Resulting Agency Comment Spec In Lab Daphne Shahid MD HEMATOLOGY ORDERABLES Performing Organization Address City/State/[place] [address] (ABNORMAL) APTT (07/06/2017 2:20 AM EST) P athologist Signature PTT 52 (H) 25 - 35 sec [facility] Comment: The recommended therapeutic range for fu ll dose, unfractionated heparin at [facility] is 80 ? 114 [...] Address City/State/ZIP Code Phon e Number [address] POCT Glucose (07/06/2017 2:20 AM EST) athologist Signature POC Glucose 115 65 - 199 [facility] Comment: Supplemental ranges: <140 mg/dL before meals <180 mg/dL all other times of the day Specimen Anatomical Collection Method Collection Time Receive d Time (Source) Location / / Volume Laterality Blood specimen 07/06/2017 2:20 AM 017 2:20 (specimen) EST AM EST Daphne Shahid MD POINT OF CARE TEST ORDERABLE S Performing Organization Address City/State/[place] [address] (ABNORMAL) Cardiac Enzymes (LEB/CGP) (07/06/2017 2:20 AM EST) athologist Signature Troponin-T 2.13 (H) 0.00 - [place] 0.00 ng/mL [facility] Comment: The [...] additional sample may be indicated. Reference: Third [place] Definition of Myocardial Infarction. Journal of the [place] [employer] 2012;60:1581-98 CK, Total 129 0 - 200 unit/L [facility] LABORATORY Specimen Anatomical Collection Method Collection Time Receive d Time (Source) Location / / Volume Laterality Blood specimen 07/06/2017 2:20 AM 017 2:33 (specimen) EST AM EST Resulting Agency Comment Spec In Lab Daphne Shahid MD CHEMISTRY ORDERABLES Performing Organization Address City/State/[place] [address] (ABNORMAL) Hemoglobin A1c (07/06/2017 [...] into estimated average glucose values. ??Diabetes Care 2008:31(8):4681-5518. Specimen Anatomical Collection Method Collection Time Receive d Time (Source) Location / / Volume Laterality Blood specimen 07/06/2017 2:20 AM 017 2:34 (specimen) EST AM EST Resulting Agency Comment Spec In Lab Daphne Shahid MD CHEMISTRY ORDERABLES Performing Organization Address City/State/[place] [address] (ABNORMAL) Lipid Panel (07/06/2017 2:20 AM EST) [facility] Method Time Signature Chol, Total 150 <=239 [place] mg/dL [facility]ATORY Triglycerides 129 <=199 [facility] mg/dL [facility] HDL 32 (L) >=40 [facility] mg/dL [facility] LDL Cholesterol 92 <=190 [place] mg/dL [facility] Chol/HDL Ratio 4.7 ratio [facility] Lipid See Note [place] Interpretation [facility] Comment: Lipid management should be guided by a p atient? s ASCVD risk, goals and preferences. ACC/AHA Guidelines recommend high intens ity statin if clinical ASCVD or LDL greater than or equal to 190 mg/dL. http://tinyurl.com/GSQ-AUF-Ulcqeujns Adults aged 40-75 with LDL 70-189 mg/dL should have their 10 year ASCVD risk estimated with the ACC/AHA ASCVD risk es timator http://tools.acc.org/RXKNI-Lria-Rzmcwrio r/ Statin should be discussed if risk [...] Shahid MD CHEMISTRY ORDERABLES Performing Organization Address [facility]/ZIP Code Phon e Number [address] POCT Glucose (07/06/2017 1:09 AM EST) athologist Signature POC Glucose 121 65 - 199 [facility]dL [facility] Comment: Supplemental ranges: [...] [facility]/[place] [address] POCT Glucose (07/06/2017 12:06 AM EST) athologist Signature POC Glucose 147 65 - 199 [facility] [place] mg/dL [facility] Comment: Supplemental ranges: <140 mg/dL before meals <180 mg/dL all other times of the day Specimen Anatomical Collection Method Collection Time Receive d Time (Source) Location / / Volume Laterality Blood specimen 07/06/2017 12:06 7 (specimen) AM EST 12:06 AM EST Daphne Shahid MD POINT OF CARE TEST ORDERABLE S Performing Organization Address City/State/[place] [address] (ABNORMAL) POCT Glucose (07/05/2017 10:56 PM EST) athologist Signature POC Glucose 200 (H) 65 - 199 [facility] mg/dL [facility] Comment: Supplemental ranges: <140 mg/dL before meals <180 mg/dL all other times of the day Specimen Anatomical Collection Method Collection Time Receive d Time (Source) Location / / Volume Laterality Blood specimen 07/05/2017 10:56 7 (specimen) PM EST 10:56 PM EST Daphne Shahid MD POINT OF CARE TEST ORDERABLE S Performing Organization Address City/State/[place] [address] (ABNORMAL) POCT Glucose (07/05/2017 10:05 PM EST) athologist Signature POC Glucose 225 (H) 65 - 199 [facility] mg/dL [facility] Comment: Supplemental ranges: <140 mg/dL before meals <180 mg/dL all other times of the day Specimen Anatomical Collection Method Collection Time Receive d Time (Source) Location / / Volume Laterality Blood specimen 07/05/2017 10:05 7 (specimen) PM EST 10:05 PM EST Daphne Shahid MD POINT OF CARE TEST ORDERABLE S Performing Organization Address City/State/[place] [address] (ABNORMAL) POCT Glucose (07/05/2017 9:02 PM EST) athologist Signature POC Glucose 301 (H) 65 - 199 [facility] mg/dL [facility] Comment: Supplemental ranges: <140 mg/dL before meals <180 mg/dL all other times of the day Specimen Anatomical Collection Method Collection Time Receive d Time (Source) Location / / Volume Laterality Blood specimen 07/05/2017 9:02 PM 017 9:02 (specimen) EST PM EST Daphne Shahid MD POINT OF CARE TEST ORDERABLE S Performing Organization Address City/State/[place] [address] XR Chest PA or [...] ms MUSE SYSTEM (Bezet) Calculated P [place] 50 degrees MUSE SYSTEM Calculated R [place] -28 degrees MUSE SYSTEM Calculated T [place] 90 degrees MUSE SYSTEM INTERPRETATION Sinus tachycardia [...] (ABNORMAL) Differential, Automated (07/05/2017 8:20 PM EST) [facility] gist Method Time Signature Neutrophils % 88.4 % [facility]OR[facility]ORY Neutr Abs (ANC) 9.08 (H) 1.70 - [facility] 6.10 [facility] x10(3)/[facility] LABORATORY Lymphocytes % 7.0 % [facility] LABORATORY Lymphocytes Abs 0.7 (L) 0.9 - 3.2 [facility] x10(3)/[facility] LABORATORY Monocytes % 3.7 % [facility] LABORATORY Monocyte Abs 0.4 0.3 - 0.9 [facility] x10(3)/[facility] LABORATORY Eosinophils % 0.1 % [facility]ORATORY Eosinophils Abs 0.0 0.0 - 0.4 [facility] x10(3)/[facility] LABORATORY Basophils % 0.2 % [facility] LABORATORY Basophils Abs 0.0 0.0 - 0.1 [facility] x10(3)/[facility] LABORATORY Immature Gran [...] Address City/State/[place] [address] (ABNORMAL) Hemogram (07/05/2017 8:20 PM EST) Analysis Performed At Patho logist Time Signature WBC 10.3 (H) 4.0 - 9.5 [facility] x10(3)/[facility] LABORATORY RBC 4.64 4.58 - [place] 5.54 [facility] x10(6)/[facility] LABORATORY Hemoglobin 14.1 13.7 - [place] 16.5 gm/dL [facility] Hematocrit 40.8 40.5 - [facility] RYAN 48.5 % [facility] MCV 87.9 82.9 - [facility] R[place]AN 93.1 [facility] LABORATORY MCH 30.4 27.5 - [place] 32.1 pg [facility] MCHC 34.6 32.0 - [facility] [place] 35.7 gm/dL [facility] Platelets 204 145 - 357 [facility] x10(3)/[facility] LABORATORY RDWSD 46.1 (H) 36.0 - [facility] RYAN 45.0 [facility] LABORATORY RDWCV 14.5 (H) 11.4 - [facility] R[facility]AN 13.8 % [facility] MPV 9.7 7.6 - 12.9 [facility] nRBC % Auto 0.0 % [facility] LABORATORY nRBC Abs Auto 0.000 0.000 - [facility] RYAN 0.000 [facility] x10(3)/[facility] LABORATORY Specimen Anatomical Collection Method Collection Time Receive d Time (Source) Location / / Volume Laterality Blood specimen 07/05/2017 8:20 PM 017 8:27 (specimen) EST PM EST Resulting Agency Comment Spec In Lab Daphne Shahid MD HEMATOLOGY ORDERABLES Performing Organization Address City/State/ZIP Code Phon e Number [place] [address] APTT (07/05/2017 8:20 PM EST) athologist Signature PTT 32 25 - 35 sec [facility] Comment: The recommended therapeutic range for fu ll dose, unfractionated heparin at [facility] is 80 ? 114 [...] Address City/State/[place] [address] (ABNORMAL) Cardiac Enzymes (LEB/CGP) (07/05/2017 8:20 PM EST) athologist [facility] Troponin-T 2.11 (H) 0.00 - [facility] 0.00 ng/mL [facility] Comment: [...] additional sample may be indicated. Reference: Third [place] Definition of Myocardial Infarction. Journal of the [place] College of Cardiology 2012;60:1581-98 CK, Total 149 0 - 200 unit/L [facility] Specimen Anatomical Collection Method Collection Time Receive d Time (Source) Location / / Volume Laterality Blood specimen 07/05/2017 8:20 PM 017 8:27 (specimen) EST PM EST Resulting Agency Comment Spec In Lab Daphne Shahid MD CHEMISTRY ORDERABLES Performing Organization Address City[facility]/ZIP [facility] [place] [address] (ABNORMAL) Magnesium (07/05/2017 8:20 PM EST) P athologist Signature Magnesium 0.68 (L) 0.69 - 1.07 [facility] mmol/L [facility] Specimen Anatomical Collection Method Collection Time Receive d Time (Source) Location / / Volume Laterality Blood specimen 07/05/2017 8:20 PM 017 8:27 (specimen) EST PM EST Resulting Agency Comment Spec In Lab Daphne Shahid MD CHEMISTRY ORDERABLES Performing Organization Address [facility]/[place] [address] (ABNORMAL) Basic Metabolic Panel (non-fasting) (07/05/2017 8:20 PM EST) P athologist Signature Glucose Lvl 321 (H) 65 - 199 [facility] mg/dL [facility] Comment: Diabetes: [...] or in patients with acute kidney failure. [email or web address] http://KS12/DHMCnkf Specimen Anatomical Collection Method Collection Time Receive d Time (Source) Location / / Volume Laterality Blood specimen 07/05/2017 8:20 PM 017 8:27 (specimen) EST PM EST Resulting Agency Comment Spec In Lab Daphne Shahid MD CHEMISTRY ORDERABLES Performing Organization Address City/State/[place] [address] (ABNORMAL) POCT Glucose (07/05/2017 7:32 PM EST) P athologist Signature POC Glucose 296 (H) 65 - 199 [facility] mg/dL [facility] Comment: Supplemental [...] Address City/State/[place] [address] CARDIAC CATHETERIZATION (07/05/2017 6:47 PM EST) Anatomical Region Laterality Modality Other Specimen (Source) Anatomical Location Collection Method / Collectio n Time Received Time / Laterality Volume Narrative 07/05/2017 7:27 PM EST ?[facility] ? Cardiac Cathete rization/Intervention Report ? Patient Name: Gregory Hoang ? Procedure Date: 07/05/2017 ? A #: [id number] ? Primary Physician: Clarisa, Jet T ? Case #: [id number] ? File Name: [id number] ? Catheterization Order Number: [id number] ? [facility] ? Final Report [place], [place] ? Patient Name: ? Gregory Natalya ?ID#: ?[id number] ? : ?1945 ? Procedure Date: ? [...] presented with: non -STEMI (w/i 7 days). Iron ?Cardiovascular Society angina c lass was IV. 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 ? Jet Mckenna M.D. ? Electronically Signed by: Jet bunch M.D. ? Report Finalized: 07/05/2017 ??19:23 ? Report Last Ammended: 10/26/2017 ??10:29 ? Procedure Note Jet Mckenna MD - 10/26/2017Formatt ing of this note might be different from the original. [facility] Cardiac Catheterization/Intervention Re port Patient Name: Gregory Hoang Procedure Date: 07/05/2017 A #: [id number] Primary Physician: Jet Mckenna Case #: [id number] File Name: [id number] Catheterization Order Number: [id number] [facility] Final Report [place], [place] Patient Name: Gregory Hoang ID#: [id number] : 1945 Procedure Date: July 05, [...] presented with: non-STEMI ( w/i 7 days). Iron Cardiovascular Society angina class was IV. 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 Jet Mckenna M.D. Electronically Signed by: [...] Mccollum ? (Age): 1945(72y) Med Rec#: ? [id number] ?Sex: ?M ? Site Loc: ? [facility] ?Ht / Wt: ??173(cm)/86(kg) Pt. Loc: ?CCU ? BSA: ?2 Study Date: ?? 07/05/2017 ?Pt. Type: Inpatient Tape: ? Referring: Daphne Shahid ([id number]) Referring: MANDA ALCANTAR Reading: Blade Preston ([id number]) Body Care Manager: Dayami Paula BA, [facility] Diagnosis: *ICD-10-PCS Non-ST elevation (NSTEMI) m [...] E-wave Vmax ?0.8 ?m/sec ? MV deceleration [id number] ?msec ? MV A-wave Vmax ?0.8 ?m/sec [...] ? Mid-Inferior ?Akinetic ? Mid-Inferoseptal ?Hypokinetic ? [place]-Septal ? Akinetic ? [place]-Anterior ? Hypokinetic ? [place]-Lateral ?Hypokinetic ? [place]-Inferior ? Akinetic ? [place]-Tip ?Akinetic ? This report has been electronically sign ed by: _ Blade Preston MD ? 07/06/2017 08 :53:15 Images reviewed and interpretation [facility] Cardiac Ultrasound Laboratory Procedure Note Blade Preston MD - 07/06/2017Formatt ing of this note might be different from the original. Procedure: Transthoracic Echocardiogram Patient: NATALYA MCBRIDE(Age): [birth year]72y) Med Rec#: [id number] Sex: M Site Loc: [facility] Ht / Wt: 173(cm)/86(kg) Pt. Loc: CCU BSA: 2 Study Date: 07/05/2017 Pt. Type: Inpatie nt Tape: Referring: Daphne Shahid ([id number]) Referring: MANDA ALCANTAR Reading: Blade Preston ([id number]) Body Care Manager: Dayami Paula BA, [facility] Diagnosis: *ICD-10-PCS Non-ST elevation (NSTEMI) m [...] MV E-wave Vmax 0.8 m/sec MV deceleration [id number] msec MV A-wave Vmax 0.8 m/sec MV [...] Hypokinetic Mid-Posterolateral Hypokinetic Mid-Inferior Akinetic Mid-Inferoseptal Hypokinetic [place]-Septal Akinetic [place]-Anterior Hypokinetic [place]-Lateral Hypokinetic [place]-Inferior Akinetic [place]-Tip Akinetic This report has been electronically sign ed by: _ Blade Preston MD 07/06/2017 08:53:15 Images reviewed and interpretation ver ied [facility] Cardiac Ultrasound Laboratory Daphne Shahid MD ECHO ORDERABLES Differential, Automated (07/05/2017 4:55 PM EST) athologist Signature Neutrophils % 77.0 % [facility] Neutr Abs (ANC) 5.26 1.70 - [facility] 6.10 [facility] x10(3)/[facility] LABORATORY Lymphocytes % 13.3 % [facility] LABORATORY Lymphocytes Abs 0.9 0.9 - 3.2 [facility] x10(3)/[facility] LABORATORY Monocytes % 8.2 % [facility] LABORATORY Monocyte Abs 0.6 0.3 - 0.9 [facility] x10(3)/[facility] LABORATORY Eosinophils % 0.7 % [facility] LABORATORY Eosinophils Abs 0.0 0.0 - 0.4 [facility] x10(3)/[facility] LABORATORY Basophils % 0.4 % [facility] LABORATORY Basophils Abs 0.0 0.0 - 0.1 [facility] x10(3)/[facility] LABORATORY Immature Gran [...] x10(3)/[facility] LABORATORY Specimen Anatomical Collection Method Collection Time Receive d Time (Source) Location / / Volume Laterality Blood specimen 07/05/2017 4:55 PM 017 5:24 (specimen) EST PM EST Resulting Agency Comment Spec In Lab Daphne Shahid MD HEMATOLOGY ORDERABLES Performing Organization Address City/State/[place] [address] (ABNORMAL) Hemogram (07/05/2017 4:55 PM EST) Analysis Performed At Patho logist Time Signature WBC 6.8 4.0 - 9.5 [facility] x10(3)/[facility] LABORATORY RBC 4.67 4.58 - [facility] 5.54 [facility] x10(6)/[facility] LABORATORY Hemoglobin 14.0 13.7 - [place] 16.5 gm/dL [facility] Hematocrit 41.0 40.5 - [place] 48.5 % [facility] MCV 87.8 82.9 [facility] 93.1 [facility] LABORATORY MCH 30.0 27.5 - [place] 32.1 pg [facility] MCHC 34.1 32.0 - [place] 35.7 gm/dL [facility] Platelets 197 145 - 357 [facility] x10(3)/[facility] LABORATORY RDWSD 46.4 (H) 36.0 - [place] 45.0 [facility] LABORATORY RDWCV 14.5 (H) 11.4 - [place] 13.8 % [facility] MPV 9.7 7.6 - 12.9 [facility] [facility] LABORATORY nRBC % Auto 0.0 % [facility] LABORAT[facility] nRBC Abs Auto 0.000 0.000 - KATALINA RYAN 0.000 [facility] x10(3)/[facility] LABORATORY Specimen Anatomical Collection Method Collection Time Receive d Time (Source) Location / / Volume Laterality Blood specimen 07/05/2017 4:55 PM 017 5:24 (specimen) EST PM EST Resulting Agency Comment Spec In Lab Daphne Shahid MD HEMATOLOGY ORDERABLES Performing Organization Address City/State/[place] [address] (ABNORMAL) Cardiac Enzymes (LEB/CGP) (07/05/2017 4:55 PM EST) P athologist Signature Troponin-T 1.69 (H) 0.00 - KATALINA DAVIS 0.00 ng/mL [facility] Comment: [...] additional sample may be indicated. Reference: Third [place] Definition of Myocardial Infarction. Journal of the [place] [employer] 2012;60:1581-98 CK, Total 191 0 - 200 unit/L [facility] LABOR[facility] Specimen Anatomical Collection Method Collection Time Receive d Time (Source) Location / / Volume Laterality Blood specimen 07/05/2017 4:55 PM 017 5:56 (specimen) EST PM EST Resulting Agency Comment Spec In Lab Daphne Shahid MD CHEMISTRY ORDERABLES Performing Organization Address City/[facility]/[place] [address] (ABNORMAL) pro-Brain Natriuretic Peptide (07/05/2017 4:55 PM EST) P athologist Signature ProBNP 1,598 (H) <=125 [facility] pg/mL [facility] Specimen Anatomical Collection Method Collection Time Receive d Time (Source) Location / / Volume Laterality Blood specimen 07/05/2017 4:55 PM 017 5:24 (specimen) EST PM EST Resulting Agency Comment Spec In Lab Daphne Shahid MD CHEMISTRY ORDERABLES Performing Organization Address City/State/[place] [address] Magnesium (07/05/2017 4:55 PM EST) P athologist Signature Magnesium 0.78 0.69 - 1.07 [facility] mmol/L [facility] Specimen Anatomical Collection Method Collection Time Receive d Time (Source) Location / / Volume Laterality Blood specimen 07/05/2017 4:55 PM 017 5:24 (specimen) EST PM EST Resulting Agency Comment Spec In Lab Daphne Shahid MD CHEMISTRY ORDERABLES Performing Organization Address City/State/[place] [address] (ABNORMAL) Basic Metabolic Panel (non-fasting) (07/05/2017 4:55 PM EST) P athologist Signature Glucose Lvl 230 (H) 65 - 199 [facility] mg/dL [facility] Comment: Diabetes: [...] or in patients with acute kidney failure. [email or web address] Specimen Anatomical Collection Method Collection Time Receive d Time (Source) Location / / Volume Laterality Blood specimen 07/05/2017 4:55 PM 017 5:24 (specimen) EST PM EST Resulting Agency Comment Spec In Lab Daphne Shahid MD CHEMISTRY ORDERABLES Performing Organization Address City/[facility]/[place] [address] (ABNORMAL) APTT (07/05/2017 4:55 PM EST) P athologist Signature PTT 41 (H) 25 - 35 sec [facility] Comment: The recommended therapeutic range for fu ll dose, unfractionated heparin at [facility] is 80 ? 114 [...] Shahid MD HEMATOLOGY ORDERABLES Performing Organization Address City/[facility]/[place] [address] (ABNORMAL) POCT Glucose (07/05/2017 4:53 PM EST) athologist Signature POC Glucose 208 (H) 65 - 199 [facility] mg/dL [facility] Comment: Supplemental [...] City[facility]/[place] [address] EKG 12 Lead (07/05/2017 4:32 PM EST) Component Value Ref Range Test Analysis Performed Pathologis t Method Time At Signature Ventricular rate 97 BPM MUSE SYSTEM Atrial Rate 97 BPM MUSE SYSTEM P-R Interval 148 ms MUSE SYSTEM QRS Duration 96 ms MUSE SYSTEM Q-T Interval 364 ms MUSE SYSTEM QTC Calculated 462 ms MUSE SYSTEM (Bezet) Calculated P [place] 48 degrees MUSE SYSTEM Calculated R [place] -33 degrees MUSE SYSTEM Calculated T [place] 98 degrees MUSE SYSTEM INTERPRETATION Normal sinus [...] Coronary atherosclerosis of unspecified type of vessel, [place] or graft Cardiomyopathy, ischemic Other specified forms [...] dose on Wed07/07/17 at 2100, Until Discontinued, [place] teeth, Routine Given 07/08/2017 10:06 PM EST [...] or norepinephrine is ineffective. Call pager # [phone] if initiated. Rate/Dose Change 07/08/2017 7:01 PM [...] if phenyleprine and/or vasopressin ineffective.Call pager # [phone] if initiated., Routine Rate/Dose Change 07/09/2017 1:24 [...] 2.0 L/min/M2. Maximum volume 2 L. Call equipment operator warehouse for additional fluid orders: pager #[phone]. Rate/Dose Verify 07/08/2017 4:00 AM EST 100 [...] Luther RN) 0841 (Given - Provider: Em oJnes RN)0900 (See Alternative - Provider: Em Jones [...] not met) 0000 (Not Given - Provider: Deince contreras RN - Reason: Order parameters not [...]
Routine documented in this encounter Care Teams Pulp Making Plant Operator Relationship Specialty Start Date End Date Lovely Vicente MD PCP - General 04/16/[address] [place] [address] [address] [facility] [address] [place] [address] documented as of this encounter
--- OUTSIDE RECORDS SUMMARY | 2022-05-20 09:39 | XMS_ITS | Encounter Summary ---
:1945 Author Organization [facility] [place] [address] Care Team Providers Name Role Phone Lovely Vicente MD Primary Care Provider Encounter Details Date Type Department Care Team Description 07/08/2017 Orders Only [facility] [place] [address] Social History Tobacco Use Types Packs/Day [...] MD [facility] [place] [address] (Wo rk) 05/28/2022 Laboratory Appointment Lab 05/28/2022 Office Visit Cardiology Zulma Dolan MD [facility] [place] [address] Liz Poole PA [facility] [address] 06/10/2022 Office Visit Dermatology Laura Scherer MD [facility] ER [address] [place] [address] (Wo rk) documented as of this encounter [...] Mccollum ? (Age): 1945(72y) Med Rec#: ? [id number] ?Sex: ?M ? Site Loc: ? Ht / Wt: ??(cm)/ (kg) ? Pt. Loc: ? Study Date: ?? 07/07/2017 ?Pt. Type: Tape: ? Referring: Yuan Retana Reading: Yifan Perez MD ([id number]) Performing: Yifan Perez MD ([id number]) Diagnosis: SUMMARY: 1. Intraoperative AVELINO performed at the [facility] of Dr. Mike for the diagnosis [...] ? Mid-Inferior ?Hypokinetic ? Mid-Inferoseptal ?Hypokinetic ? [place]-Septal ? Hypokinetic ? [place]-Anterior ? Hypokinetic ? [place]-Lateral ?Hypokinetic ? [place]-Inferior ? Hypokinetic ? [place]-Tip ?Not Seen ? This report has been electronically sign ed by: _ Yifan Perez MD ? 07/08/2017 12 :25:18 Images reviewed and interpretation verif ied [facility] Cardiac Ultrasound Laboratory Procedure Note Yifan Perez MD - 07/08/2017Formatt ing of this note might be different from the original. Procedure: Transesophageal Echocardiogra m Patient: NATALYA MCBRIDE(Age): [birth year]72y) Med Rec#: [id number] Sex: M Site Loc: Ht / Wt: (cm)/ (kg) Pt. Loc: Study Date: 07/07/2017 Pt. Type: Tape: Referring: Yuan Retana Reading: Yifan Perez MD ([id number]) Performing: Yifan Perez MD ([id number]) Diagnosis: SUMMARY: 1. [facility] [...] Hypokinetic Mid-Posterolateral Hypokinetic Mid-Inferior Hypokinetic Mid-Inferoseptal Hypokinetic [place]-Septal Hypokinetic [place]-Anterior Hypokinetic [place]-Lateral Hypokinetic [place]-Inferior Hypokinetic [place]-Tip Not Seen This report has been electronically sign ed by: _ Yifan Perez MD 07/08/2017 12:25:18 Images reviewed and interpretation elvie hwang [facility] Cardiac Ultrasound Laboratory Unknown ECHO ORDERABLES documented in this encounter Visit Diagnoses Not on filedocumented in this encounter Care Teams Aviation Tactical Readiness Officer Relationship Specialty Start Date End Date Lovely Vicente MD PCP - General 04/16/[address] [place] [address] documented as of this encounter
--- OUTSIDE RECORDS SUMMARY | 2022-05-20 09:40 | XMS_ITS | Encounter Summary ---
:1945 [place] [address] Care Team Providers Name Role Phone Lovely Vicente MD Primary Care Provider Reason for Visit Auth/Cert Specialty Diagnoses / Procedures Referred By Contact Refer red To Contact Diagnoses STEMI (ST elevation myocardial infarction) NSTEMI STEMI Procedures CARDIAC CATHETERIZATION NAYE IPI Referral ID Status Reason Start Date Expiration Date Visits Requ ested Visits Authorized [id number] 1 1 Encounter Details Date Type Department Care Team Description 07/07/2017 Anesthesia Event Main Operating Room Yifan Jaime MD [facility] [place] [address] [facility] Ginny Murray MD [facility] [place] [address] [facility] [place] [address] Anesthesia Record Procedure Summary Procedure Name [...] 2342 LDA Cath/EP Sheath 07/05/17; 0606; 8 Gren[place] 07/05/17 0606 by [id number] by (Fr); Right; Femoral [place], Yane Cook, RN PIV 07/05/17; 1720; median 07/05/17 1720 by 07/11/17 2355 by vein (underside of arm), Prior, Yanet Maza, Angela Mccurdy, left; 18 gauge; removed RUBBER TILE FLOOR LAYER per policy/procedure; 07/11/17; 2355 Intra-Aortic Balloon 07/05/17; [...] Miller, Carrie L, Type: Cuffed; ETT Size: DIESEL MAINTENANCE TECHNICIAN 8 mm; Santiago Blade: 2; Notes: [...] Murray MD - 07/08/2017 5:08 PM EST [facility] Department of Anesthesiology Post-procedure Note Patient: Don Fatima Procedure Summary Date Anesthesia Start Anesthesia Stop Room / Location 07/07/17 1335 1836 [facility] OR [facility] MAIN OR Procedure Diagnosis Surgeon Responsible Provider @CABG, USING ARTERIAL GRAFT;SINGLE ARTERIAL GRAFT (WRVU 33.75) (N/A Chest); @CABG, TWO VENOUS GRAFTS & ARTERIAL GRAFT (WRVU 7.93) (N/A Chest); ENDOSCOPIC HARVEST VEIN(S) FOR CABG (WRVU 0.31) (Right Leg) (CAD) Yuan Freitas MD Hartman, Gregg S, MD All Anesthesia Providers: Anesthesiologist: Yifan Perez MD Knit Goods Mender: Ginny Murray MD Most Recent Vitals: 07/08/17 [...] [facility] ENDOSCOPY ??? PRO THYROIDECTOMY 03/28/2013 THYROIDECTOMY, TOTAL OR COMPLETE performed by Manny Mcknight MD at [facility] MAIN OR Social History Substance [...] Zulma Dolan [facility] [place] [address] (Wo rk) 05/28/2022 Laboratory Appointment Lab 05/28/2022 Office Visit Cardiology Zulma Dolan MD [facility] [place] [address] Liz Poole PA [facility] [place] [address] 06/10/2022 Office Visit Dermatology Laura Scherer MD [facility] [address] [place], [place] [address] (Wo rk) documented as [...] mg documented in this encounter Care Teams Scrap Shear Operator Relationship Specialty Start Date End Date Lovely Vicente MD PCP - General 04/16/[address] [place] [address] documented as of this encounter
--- OUTSIDE RECORDS SUMMARY | 2022-05-20 09:40 | XMS_ITS | Encounter Summary ---
:1945 Author Organization [facility] Address [facility] [place] [address] Care Team Providers Name Role Phone Lovely Vicente MD Primary Care Provider Reason for Visit Auth/Cert Specialty Diagnoses / Procedures Referred By Contact Refer red To Contact Diagnoses STEMI (ST elevation myocardial infarction) NSTEMI STEMI Procedures CARDIAC CATHETERIZATION NAYE IPI Referral ID Status Reason Start Date Expiration Date Visits Requ ested Visits Authorized [id number] 1 1 Encounter Details Date Type Department Care Team Description 07/07/2017 Surgery Main Operating Room Yuan Webber, @ CABG, USING ARTERIAL Barbara Ocampo MD GRAFT;SINGLE ARTERIAL [facility] GRAFT (WRVU 33.75) [facility] DR Siddiqui [place] [address] SURGERY [phone] [place], [place] [address] (Wo rk) Social History Tobacco [...] in this encounter Discharge Summaries Martha Teague, STUDENT OFFICER - 07/14/2017 9:38 AM EST Inpatient - Discharge Summary Patient Name: Gregory Hoang Patient Age: 72 y.o. Birthdate: 1945 Language: Guamanian Race: White Ethnicity: Not nor Admit Date: [...] , @ 1:20p Patient to follow-up with Environmental Services Supervisor/heart failure team in one week. An appointment will be made for you. You may call [phone] Patient to follow-up with Cardiac Surgery, Dr. Yuan Webber, in ~ 4 weeks with CXR, EKG. Inpatient Provider Contact Information: [facility] Section of Cardiac Surgery [facility] [address] FAX [phone] Discharge Diagnoses (Hospital Problems) Primary Diagnoses: CAD [...] by mouth daily. 90 tablet 3 07/05/2017 [id number] ??? ascorbic acid, vitamin C, (VITAMIN C) [...] admitted to [facility] on 07/05/2017 via the Cardiology Service. During [...] not take or discontinue any prescription or rjug-bfa-aoboabr medications without asking your doctor or pharmacist [...] Yuan Webber and/or the Cardiac Surgery Physician Manufacturing Engineer Automotive Team may be reached at . Weight: [...] Dr. Yuan Webber. You may use a [place] Track or treadmill but avoid any pulling [...] friends, go to a movie, go to rastafari, etc. Heavy activities: No hunting, skiing, jogging, snow shoveling, snowmobiling, lawn mowing, swimming, golf or tennis until after your return appointment with the surgeon. Do not ride motorcycles, [employer]'s tractors or horses. Avoid the use of [...] should resume a low fat, low cholesterol, Chinese Heart Association Diet/Diabetic diet. Driving: No driving [...] , @ 1:20p Patient to follow-up with Environmental Services Supervisor/heart failure team in one week. Appointment will be made for you. You may call [phone] Patient to follow-up with Cardiac Surgery, Dr. Yuan Webber, in ~ 4 weeks with CXR, EKG. Cardiac Rehabilitation: Gregory Hoang was seen today regarding participation in the outpatient Phase 2 Cardiac Rehabilitation at [facility]. The patient agrees to a referral to this program. The referral will be sent at discharge and the patient should be contacted by the Program within 1- 2 weeks from discharge. ?? Future Appointments and Orders Future Appointments Provider Department Dept Phone 09/07/2017 3:00 PM LAB, THREE L Lab 3L [facility] [phone] 09/07/2017 4:00 PM Luz Prescott MD Endocrinology at [facility] [phone] Future Orders Complete By Expires EKG 12 Lead [EKG1 Custom] 08/14/2017 02/13/2018 Process Instructions: Scheduling Instructions: Questions: Which DH location will this be performed?: [facility] Is a rhythm strip needed?: No If EKG Reason is Pre-op Evaluation, indicate diagnosis for surgery.: XR Chest PA & Lateral (Generic) [[id number] Custom] 08/14/2017 02/13/2018 Process Instructions: Scheduling Instructions: Questions: Where will study be performed?: [facility] Portable exam?: Reason for exam and clinical history: CABG x 3 Other pertinent information: Stat read required?: Date of injury if applicable: Requested Time: Referral to Cardiac Rehab [GTA138 Custom] As directed Process Instructions: If no progress note charted, please enter Clinical details in comments. Scheduling Instructions: Questions: My question or request is: s/p CABG. Cardiac rehab at [facility] Referral to Home Health - at DISCHARGE [UNC1000 CPT(R)] As directed Process Instructions: Scheduling Instructions: Comments: DOCUMENTATION FOR VNA SERVICES (INCLUDING THOSE PATIENTS WITH MEDICARE COVERAGE REQUIRING HOME VNA SERVICES AND/OR HOSPICE SERVICES) PATIENT'S LOCATION: Grgeory Hoang [address] [place] [address] [place] [phone] (home) Telephone Information: Mushroom Growing Supervisor's Name: self In discussion with the attending physician, it is certified that this patient is under their care and that they, or a Nurse Practitioner, or Physician Manufacturing Engineer Automotive who is working directly with them, had [...] [facility] ([facility] [place] [employer]-is in [place]) PHONE: [phone] FAX: [phone] RN orders: Cardiopulmonary assessment, incisional assessment, assess vital signs, assessment of rehab progress, medication management and effectiveness, home safety evaluation. Please draw INR if indicated and send result to:Dr Vicente [phone] PT ORDERS: Continue rehab for endurance, gait stability and strength with mobility and transfers. Home safety evaluation. Home exercise program if appropriate. Start of Care Date:24-48 hours after discharge SPECIAL INSTRUCTIONS: For any follow up questions, needs, or issues please call the Cardiac Surgery Office at [phone] FOR MEDICARE ONLY: (please delete this section [...] noted. Questions: Agency name and contact information: [facility] Patient location post discharge: home What services are requested: Registered Nurse Physical Therapy Start date: Responsible MD post discharge contact info: PCP Arrangements for VNA/home care: As above. VN RN OR PCP TO PLEASE REMOVE CHEST TUBE SUTURES ON OR AFTER 07/17/2017 Signed: Martha Teague APRN [facility] Section of Cardiac Surgery [facility] [address] FAX [phone] Date: 07/14/2017 CC: MD Ivania Cr Betsy, PA [address] [place] [phone] documented in this encounter Discharge Instructions Discharge [...] not take or discontinue any prescription or xroj-tjo-sgeelqa medications without asking your doctor or pharmacist [...] Yuan Webber and/or the Cardiac Surgery Physician Manufacturing Engineer Automotive Team may be reached at . ?? [...] Dr. Yuan Webber. You may use a [place] Track or treadmill but avoid any pulling [...] friends, go to a movie, go to rastafari, etc. ?? Heavy activities: No hunting, skiing, jogging, snow shoveling, snowmobiling, lawn mowing, swimming, golf or tennis until after your return appointment with the surgeon. Do not ride motorcycles, [employer]'s tractors or horses. Avoid the use of [...] should resume a low fat, low cholesterol, Chinese Heart Association Diet/Diabetic diet. ?? Driving: No [...] @ 1:20p ?? Patient to follow-up with Environmental Services Supervisor/heart failure team in one week. An appointment has been made for you, you can call [phone] ?? Patient to follow-up with Cardiac Surgery, Dr. Yuan Webber, in ~ 4 weeks with CXR, EKG. ? Cardiac Rehabilitation: Gregory Hoang??was seen today regarding participation in the outpatient Phase 2 Cardiac Rehabilitation at [facility]. ?? The patient agrees to a referral to this program.? The referral will be sent at discharge and the patient should be contacted by the Program within 1- 2 weeks from discharge. ? Future Appointments and Orders Future Appointments Provider Department Dept Phone ?? 09/07/2017 3:00 PM LAB, THREE L Lab 3L [facility] [phone] ?? 09/07/2017 4:00 PM Luz Prescott MD Endocrinology at [facility] [phone] Future Orders Complete By Expires ?? EKG 12 Lead [EKG1 Custom] 08/14/2017 02/13/2018 ?? Process Instructions: ? Scheduling Instructions: ? Questions: ? Which location will this be performed?: [facility] ?? Is a rhythm strip needed?: No ?? If EKG Reason is Pre-op Evaluation, indicate diagnosis for surgery.: ?? XR Chest PA & Lateral (Generic) [[id number] Custom] 08/14/2017 02/13/2018 ?? Process Instructions: ? Scheduling Instructions: ? Questions: ? Where will study be performed?: [facility] ?? Portable exam?: ?? Reason for exam and clinical history: CABG x 3 ?? Other pertinent information: ?? Stat read required?: ?? Date of injury if applicable: ?? Requested Time: ?? Referral to Cardiac Rehab [SZN909 Custom] As directed ? Process Instructions: ?? If no progress note charted, please enter Clinical details in comments. ?? Scheduling Instructions: ? Questions: ? My question or request is: s/p CABG. Cardiac rehab at [facility] ? Arrangements for VNA/home care: [...] to [facility] [employer]. PHONE: [phone] FAX: [phone] Expected date of discharge: 07/14 Referral routed to the Photo Optics Technician for matching with agency/vendor and to [...] [facility] [place] Endocrinology Diabetes Management Pager [phone] minutes of this 35 minute visit [...] [employer] ([facility] [place] [employer]-is in [place] PHONE: [phone] FAX: [phone]. Expected date of discharge: 07/14/17 Referral routed to the Photo Optics Technician for matching with agency/vendor and to [...] hours. If BG remains greater than 240, hlfyol18 units (no more than three times) &??call [...] – [place] Endocrinology Diabetes Management Pager [phone] minutes of this 25 minute visit [...] of infiltration/extravasation Discussed plan of care with COOLER TENDER and RN. Elevate exrtemity and apply intermittent Warm compresses. Name of MD contacted Dr. Shaw Brown 07/13/2017 @ 0678 Name of RN contacted Ale Rangel RN Name of Pharmacist if consulted NA Name of Plastics MD ( if consulted) NA (Mandatory photo for infiltrations/ extravasations scoring a stage 2 or greater, but recommended forstage 1)( include measuring tape and identifier in the photo) STUFFED CASING TIER CARING FOR THIS PATIENT WILL CONTINUE TO [...] measuring tape and identifier in the photo) STUFFED CASING TIER CARING FOR THIS PATIENT WILL CONTINUE TO [...] regard to both infiltrates addressed by this content writer.All of MrMadiha Hoang's responses were entirely appropriate. Images of infiltrates attached here. L Martha Teague, STUDENT OFFICER - 07/13/2017 8:01 AM EST Cardiac Surgery Progress Note: ID: [id number] 72 year old male POD#6 s/p CABGx3 [...] Office of Care Management letter from the Maintenance Mechanic Telephone pertaining to rehab referrals. I have also provided a letter describing our affiliations within the [facility] and educated them about [...] registers have requested referrals to: ?? [facility]. [facility] ?? 2. [place] ?? 3. More to be entered ?? Expected date of discharge: 07/14 Note routed to Photo Optics Technician who will communicate referrals to facilities [...] hours. If BG remains greater than 240, extuxw56 units (no more than three times) & [...] – [place] Endocrinology Diabetes Management Pager [phone] minutes of this 35 minute visit was spent with the patient in counseling on diabetes and treatment plan, reviewing all glucose and insulin data as well as relevant laboratory results with the patient, and coordination of care on the inpatient unit including nursing and primary team. Makayla Stevenson APRN - 07/12/2017 9:52 AM EST Cardiac Surgery Progress Note: ID: [id number] 72 year old male POD#5 s/p CABGx3 [...] 07/11/2017 7:18 PM EST Patient arrived from [facility]. VSS. MSI dressing pulled off with fresh serousangious drainage. Makayla STRANGE notified. Incision cleaned with chlorhexidine and completely covered in guaze and metopore tape. Patient had 2 brief asymptomatic episodes of a-fib, resolved on own. Patient ate a small dinner. Denying pain. Able to ambulate to bathroom. aMrck Hicks MD - 07/11/2017 11:32 AM EST [...] hours. If BG remains greater than 240, htqwop75 units (no more than three times) & [...] AM EST Cardiac Surgery Progress Note: ID: [id number] 72 year old male POD#4 s/p CABGx3 [...] hours. If BG remains greater than 240, zsembg63 units (no more than three times) & [...] AM EST Cardiac Surgery Progress Note: ID: [id number] 72 year old male POD#3 s/p CABGx3 [...] Gas) No results found for: PHART, PO2ART, IOJ5WLP Assessment/Plan: 72 year old male POD#3 s/p [...] Mami Thao - 07/09/2017 6:29 PM EST News Production Assistant Encounter Note Patient Name: Gregory Hoang : [id number] MR#: [id number] Admit Date: 07/05/2017 4:20 PM Hospital Day 4 days Narrative: Patient was sitting in chair, hugging heart pillow, opened his eyes, nodding to come into room Assessment: Patient was sleepy. Intervention and Outcome: Introduced college advisor services and patient reached his hand out in appreciation. Follow-up: News Production Assistant remains available for support. Time in [...] AM EST Cardiac Surgery Progress Note: ID: [id number] 72 year old male POD#2 s/p CABGx3 [...] completed shifts: In: 7977.4 [I.V.:7477.4; Other:500] Out: 9055 [Urine:3000; Other:615] I- 4 L O- 2.7 [...] STEPHANIE Iqbal [facility] Section of Cardiac Surgery Date: 07/09/2017 [place] [...] when IABP d/c'ed. Gretchen Carolina, PT Pager [phone] Maddison Cee PA - 07/08/2017 11:27 AM EST Cardiac Surgery Progress Note: ID: [id number] 72 year old male POD#1 s/p CABGx3 [...] STEPHANIE Iqbal [facility] Section of Cardiac Surgery Date: 07/08/2017 Philipp, [...] in place in R femoral. No hematoma. COUNSELING CENTER MANAGER- Intact Psych- Anxious Skin- Dry, [...] Inpatient Cardiology Progress Note Patient Name: Gregory Haong Date of Admission: 07/05/2017 ( Hospital Day [...] intact. IABP in place in R femoral. COUNSELING CENTER MANAGER- Intact Psych- Anxious Skin- Dry, [...] note for details. DAPHNE SHAHID MD Pager [phone] Jet Mckenna MD - 07/05/2017 6:48 PM EST Preliminary Cardiac Catheterization Procedure Note: Procedure(s) performed: Left heart cath, IABP insertion Access: Right LINUX SUPPORT ENGINEER-->8fr IABP A time-out was conducted prior [...] Shahid MD PCP: Lovely Vicente MD PCP#: [phone] Patient Active Problem List Diagnosis Code ??? [...] load with heparin drip and transferred to [facility]. While there, continued sob, question of chest pain. Stat TTE showing WMA diffusely and EF around 20%. No significant valvular disease. Taken to the lab nurse urgently for ongoing STEMI. [facility] Labs: INR 1.0 WBC 5.88 [...] Medicine, PGY-2 Cardiology S1, Team Pager # [phone] CARDIOLOGY ATTENDING NOTE Patient: Gregory Hoang Date [...] amenable for PCI. DAPHNE SHAHID MD Pager [phone] documented in this encounter Miscellaneous Notes Consult Note - Daphne Shahid MD - 07/14/2017 11:46 AM EST Heart Failure Service Inpatient Consult Note Gregory Hoang Date of : 1945 Age: 72 y.o. Today's date: 07/14/17 PCP: Lovely Vicente MD MOLDING LINE ASSISTANT: None Place of Service: C451-A Reason for [...] MD at [facility] OR Outpt Meds: Current [...] following studies: EKG 07/14/17: NSR 75 bpm, RELEASE SPECIALIST anterior infarct, LAD CXR 07/11/17: FINDINGS: Sternotomy wires. The patient has been extubated, left chest tube removed, and Hayes-Suzi catheter removed since the 07/07/2017 study. Atelectasis [...] was discussed with Zehra. Jaden Kelley MD Rounder Hand Pager [phone] CARDIOLOGY ATTENDING NOTE Patient: Gregory Hoang Date [...] heart failure clinic. DAPHNE SHAHID MD Pager [phone] Plan of Care - Alden Chavarria, TRUCK CHAUFFEUR - 07/14/2017 11:35 AM EST Problem: Patient [...] Discharge Disposition: home with assist Alden Chavarria, TRUCK CHAUFFEUR Pager: [phone] Inpatient Physical Therapy Problem: Acute Rehab Services [...] sit/sit to supine -- Bed Mobility Goal, [place] Level supervision required -- Bed Mobility Goal, [...] - 3 days -- Gait Training Goal, [place] Level supervision required -- Gait Training Goal, [...] days -- Transfer Training Goal, Activity Type acc-tc-urvwr/hfmtb-sj-cjd;gfm-oa-lgrqv/jeefl-tz-ymo;toilet -- Transfer Train Goal, [place] Level supervision required -- Transfer Training Goal, [...] keeping present for 2 days per family. Surgery Teacher noted of frustrations, house keeping sent to room. Patient offered showered twice, refused. at bedside, frustrated that shower not complete, informed that patient had refused several times. requesting to see MANAGER STUDENT SERVICES, paged sent to Martha, will come to bedside (middle of consult). not willing to wait, Martha notified that family had gone home. Encouraged to come for morning rounds a t 8am. Diabetes team at bedside - insulin adjustments made. Call cabello in reach. Continue to monitor. PLAN MOVING FORWARD: Ambulate, dressing changes BID, Please change drsg at 4am per Martha MANAGER STUDENT SERVICES request. INDIVIDUALIZED FALL PREVENTION INTERVENTIONS: Patient-specific fall [...] levels on the lower side, 60ml of [place] juice given after a FS of [...] monitoring required during toileting and ADLs]: RN COOLER TENDER Surveillance [continuous indirect monitoring]: Barrett Monitor [...] Anticipated Discharge Disposition: home with assist Pager: [phone] CLARISSA SEGAL, PT 07/12/2017 Physical Therapy Rehabilitation [...] to sit/sit to supine Bed Mobility Goal, [place] Level supervision required Bed Mobility Goal, Additional Goal adheres to psternal precautions for transfer Goal: Gait Training Goal Stand Alone Therapy Goal Outcome: Ongoing (Interventions Implemented as Appropriate) 07/12/17 1225 Gait Training Goal Gait Training Goal, Date Established 07/12/17 Gait Training Goal, Time to Achieve 2 - 3 days Gait Training Goal, [place] Level supervision required Gait Training Goal, Assist [...] 3 days Transfer Training Goal, Activity Type rii-jr-oooyp/gsynn-vc-zxj;bmi-ra-gstmk/tdlsf-ki-byr;toilet Transfer Train Goal, [place] Level supervision required Transfer Training Goal, Additional Goal adheres to sternal precautions during transfer Consult Note - Octavia Vaughn RN - 07/12/2017 10:50 AM EST [facility] [place] CARDIAC REHABILITATION Gregory Hoang was seen today regarding participation in the outpatient Phase 2 Cardiac Rehabilitation at [facility]. The patient agrees to a [...] IV site, amio to other piv and AUTOPSY PATHOLOGIST at bedside to help assess, IV removed. [...] staff, he stood and marched in place. [place] weak, wanting to sit back down. Remained [...] Health/Prescription Coverage: Primary Insurance: MEDICARE Secondary Insurance: [employer] Prescription Coverage: yes Preferred Pharmacy: [facility] [place] Other: none Primary Care Provider: Lovely Vicente MD [phone] Patient/Caregiver Goals of Treatment:live and get my breath back Potential Needs for Transition of Care: Rehab/SNF: [facility] Home Health: DME: TBD Dialysis: na Community Resources: available Transportation: yes Other: none Anticipated Barriers to Discharge/Special Considerations: none Plan: Likely SNF Rehab before home A member of the Care Management team will continue to monitor progress, follow for continuity of care and assist with transition of care planning. ERLIN Weiss Pager: [phone] Consult Note - Katerin Azul RN - [...] to d/c gtt and start CF. terminal operator diabetes care: Medications - Outpatient treatment regimen recommendations pending based on the hospital course. Monitoring - continue BG tid ac & hs Diet - low fat/low carb diet Exercise - weight-bearing exercise 30 min/day, as tolerated Thank you for allowing us to provide care for your patient W/E coverage, Dr. Jeane Tatum, pager [phone] Katerin Azul APRN Endocrinology Diabetes Management Pager [phone] Plan of Care - Stephanie Godoy RN [...] Operative Note Patient Name: Gregory Hoang : [id number] MR#: [id number] Case Date: 07/07/2017 Surgeon: Surgeon(s) and Role: * Yuan Webber MD - Primary * Michael Drake PA - Physician Manufacturing Engineer Automotive * Linda Flores PA - Physician Manufacturing Engineer Automotive Preoperative diagnosis: 3VD Postoperative diagnosis: CAD, severe [...] Operative Note Patient Name: Gregory Hoang : [id number] MR#: [id number] Case Date: 07/07/2017 Surgeon: Surgeon(s) and Role: * Yuan Webber MD - Primary * Michael Drake PA - Physician Manufacturing Engineer Automotive * Linda Flores PA - Physician Manufacturing Engineer Automotive Preoperative diagnosis: 3VD Postoperative diagnosis: CAD, severe [...] code status: Full Code Katty Hahn, MS3 [facility] Cardiology S1 (Pager [phone]) Plan of Care - Emelia Ibarra RN [...] with other involved physicians Yuan Webber MD [phone] Med Student Progress Note - Katty Hahn [...] FULL - Dispo: CVCC Katty Hahn, M3 [facility] Cardiology S1 (Pager [phone]) Plan of Care - Stephanie Godoy RN [...] Outcome: Ongoing (Interventions Implemented as Appropriate) 07/06/17 6206 Cardiac: ACS (Acute Coronary Syndrome) Problems Assessed [...] Zulma Dolan MD [facility] [address] [place] [address] (Wo rk) 05/28/2022 Laboratory Appointment Lab 05/28/2022 Office Visit Cardiology Zulma Dolan MD [facility] [place] [address] [facility] [place]iology [place] [address] 06/10/2022 Office Visit Dermatology Laura Scherer MD [facility] [address] [place], [place] [address] (Wo rk) Scheduled Orders Name [...] procedure are i n the results section. SPLITTER HEAD SCAN 07/15/2017 12:00 Res ults for this [...] [facility] AM EST procedure are i n [...] [facility] PM EST procedure are i n [...] [facility] PM EST procedure are i n [...] 2017 EXAMINATION: XR CHEST PA AND LATERAL (TakesIC) CLINICAL HISTORY: CABG x 3 TECHNIQUE: PA [...] Teague APRN IMG DX ORDERABLES SCAN DOC: SPLITTER HEAD (07/15/2017 12:00 AM EST) Narrative 07/15/2017 12:00 [...] 186 65 - 199 BARBARA DAVIS mg/dL [facility] Comment: Supplemental ranges: <140 mg/dL before meals <180 mg/dL all other times of the day Specimen Anatomical Collection Method Collection Time Receive d Time (Source) Location / / Volume Laterality Blood specimen 07/14/2017 11:56 7 (specimen) AM EST 11:56 AM EST Yuan Webber MD POINT OF CARE TEST ORDERABLE S Performing Organization Address City/State/ZIP Code Phon e Number [place] [phone] [facility] [address] POCT Glucose (07/14/2017 7:52 AM EST) athologist Signature POC Glucose 126 65 - 199 [facility] mg/dL [facility] Comment: Supplemental ranges: <140 mg/dL before meals <180 mg/dL all other times of the day Specimen Anatomical Collection Method Collection Time Receive d Time (Source) Location / / Volume Laterality Blood specimen 07/14/2017 7:52 AM 017 7:52 (specimen) EST AM EST Yuan Webber MD POINT OF CARE TEST ORDERABLE S Performing Organization Address City/State/ZIP Code Phon e Number [address] (ABNORMAL) Prothrombin Time (07/14/2017 [...] Address City/State/ZIP Code Phon e Number [address] Potassium (07/14/2017 4:46 AM EST) athologist Signature Potassium 4.3 3.5 - 5.0 [facility] mmol/L [facility] Comment: Please note: ??Patients with [...] Address City/State/ZIP Code Phon e Number [address] POCT Glucose (07/14/2017 4:34 AM EST) athologist Signature POC Glucose 115 65 - 199 [facility] [place] mg/dL [facility] Comment: Supplemental ranges: <140 mg/dL before meals <180 mg/dL all other times of the day Specimen Anatomical Collection Method Collection Time Receive d Time (Source) Location / / Volume Laterality Blood specimen 07/14/2017 4:34 AM 017 4:34 (specimen) EST AM EST Yuan Webber MD POINT OF CARE TEST ORDERABLE S Performing Organization Address City/[facility]/ZIP Code Phon e Number [address] POCT Glucose (07/13/2017 11:33 PM EST) athologist Signature POC Glucose 132 65 - 199 [place] mg/dL [facility] Comment: Supplemental ranges: <140 mg/dL before meals <180 mg/dL all other times of the day Specimen Anatomical Collection Method Collection Time Receive d Time (Source) Location / / Volume Laterality Blood specimen 07/13/2017 11:33 7 (specimen) PM EST 11:33 PM EST Yuan Webber MD POINT OF CARE TEST ORDERABLE S Performing Organization Address City/[facility]/ZIP Code Phon e Number [address] POCT Glucose (07/13/2017 9:25 PM EST) athologist Signature POC Glucose 121 65 - 199 [place] mg/dL [facility] Comment: Supplemental ranges: <140 mg/dL before meals <180 mg/dL all other times of the day Specimen Anatomical Collection Method Collection Time Receive d Time (Source) Location / / Volume Laterality Blood specimen 07/13/2017 9:25 PM 017 9:25 (specimen) EST PM EST Yuan Webber MD POINT OF CARE TEST ORDERABLE S Performing Organization Address City/State/ZIP Code Phon e Number [address] POCT Glucose (07/13/2017 4:55 PM EST) P athologist Signature POC Glucose 79 65 - 199 [facility] mg/dL [facility] Comment: Supplemental ranges: <140 mg/dL before meals <180 mg/dL all other times of the day Specimen Anatomical Collection Method Collection Time Receive d Time (Source) Location / / Volume Laterality Blood specimen 07/13/2017 4:55 PM 017 4:55 (specimen) EST PM EST Yuan Webber MD POINT OF CARE TEST ORDERABLE S Performing Organization Address City/State/ZIP Code Phon e Number [address] POCT Glucose (07/13/2017 11:16 AM EST) P athologist Signature POC Glucose 163 65 - 199 [place] mg/dL [facility] Comment: Supplemental ranges: <140 mg/dL before meals <180 mg/dL all other times of the day Specimen Anatomical Collection Method Collection Time Receive d Time (Source) Location / / Volume Laterality Blood specimen 07/13/2017 11:16 7 (specimen) AM EST 11:16 AM EST Yuan Webber MD POINT OF CARE TEST ORDERABLE S Performing Organization Address City/State/ZIP Code Phon e Number [address] POCT Glucose (07/13/2017 8:07 AM EST) P athologist Signature POC Glucose 96 65 - 199 [place] mg/dL [facility] Comment: Supplemental ranges: <140 mg/dL before meals <180 mg/dL all other times of the day Specimen Anatomical Collection Method Collection Time Receive d Time (Source) Location / / Volume Laterality Blood specimen 07/13/2017 8:07 AM 017 8:07 (specimen) EST AM EST Yuan Webber MD POINT OF CARE TEST ORDERABLE S Performing Organization Address City/[facility]/[place] [address] (ABNORMAL) Prothrombin Time (07/13/2017 [...] City/[facility]/[place] [address] (ABNORMAL) Basic Metabolic Panel (non-fasting) (07/13/2017 4:26 AM EST) P athologist Signature Glucose Lvl 95 65 - 199 [facility] mg/dL [facility] Comment: [...] or in patients with acute kidney failure. [email or web address] Specimen Anatomical Collection Method Collection Time Receive d Time (Source) Location / / Volume Laterality Blood specimen 07/13/2017 4:26 AM 017 4:46 (specimen) EST AM EST Resulting Agency Comment Spec In Lab Makayla Wilson APRN CHEMISTRY ORDERABLES Performing Organization Address City/[facility]/ZIP Code Phon e Number [address] POCT Glucose (07/13/2017 3:52 AM EST) P athologist Signature POC Glucose 93 65 - 199 [facility] mg/dL [facility] Comment: Supplemental ranges: <140 mg/dL before meals <180 mg/dL all other times of the day Specimen Anatomical Collection Method Collection Time Receive d Time (Source) Location / / Volume Laterality Blood specimen 07/13/2017 3:52 AM 017 3:52 (specimen) EST AM EST Yuan Webber MD POINT OF CARE TEST ORDERABLE S Performing Organization Address City/State/[place] [address] POCT Glucose (07/13/2017 12:21 AM EST) athologist Signature POC Glucose 80 65 - 199 [place] mg/dL [facility] Comment: Supplemental ranges: <140 mg/dL before meals <180 mg/dL all other times of the day Specimen Anatomical Collection Method Collection Time Receive d Time (Source) Location / / Volume Laterality Blood specimen 07/13/2017 12:21 7 (specimen) AM EST 12:21 AM EST Yuan Webber MD POINT OF CARE TEST ORDERABLE S Performing Organization Address City/State/ZIP Code Phon e Number [address] POCT Glucose (07/12/2017 8:22 PM EST) athologist Signature POC Glucose 119 65 - 199 [facility] mg/dL [facility] Comment: Supplemental ranges: <140 mg/dL before meals <180 mg/dL all other times of the day Specimen Anatomical Collection Method Collection Time Receive d Time (Source) Location / / Volume Laterality Blood specimen 07/12/2017 8:22 PM 017 8:22 (specimen) EST PM EST Yuan Webber MD POINT OF CARE TEST ORDERABLE S Performing Organization Address City/State/ZIP Code Phon e Number [address] POCT Glucose (07/12/2017 4:02 PM EST) athologist Signature POC Glucose 114 65 - 199 [facility] mg/dL [facility] Comment: Supplemental ranges: <140 mg/dL before meals <180 mg/dL all other times of the day Specimen Anatomical Collection Method Collection Time Receive d Time (Source) Location / / Volume Laterality Blood specimen 07/12/2017 4:02 PM 017 4:02 (specimen) EST PM EST Yuan Webber MD POINT OF CARE TEST ORDERABLE S Performing Organization Address City/State/[place] [address] POCT Glucose (07/12/2017 11:28 AM EST) athologist Signature POC Glucose 164 65 - 199 [facility] Comment: Supplemental ranges: <140 mg/dL before meals <180 mg/dL all other times of the day Specimen Anatomical Collection Method Collection Time Receive d Time (Source) Location / / Volume Laterality Blood specimen 07/12/2017 11:28 7 (specimen) AM EST 11:28 AM EST Yuan Webber MD POINT OF CARE TEST ORDERABLE S Performing Organization Address City/State/ZIP Code Phon e Number [address] POCT Glucose (07/12/2017 7:34 AM EST) athologist Signature POC Glucose 109 65 - 199 [facility] Comment: Supplemental ranges: <140 mg/dL before meals <180 mg/dL all other times of the day Specimen Anatomical Collection Method Collection Time Receive d Time (Source) Location / / Volume Laterality Blood specimen 07/12/2017 7:34 AM 017 7:34 (specimen) EST AM EST Yuan Webber MD POINT OF CARE TEST ORDERABLE S Performing Organization Address City/State/[place] [address] (ABNORMAL) Basic Metabolic Panel (non-fasting) (07/12/2017 4:11 AM EST) athologist Signature Glucose Lvl 92 65 - 199 [facility] Comment: [...] or in patients with acute kidney failure. [email or web address] [email or web address] Specimen Anatomical Collection Method Collection Time Receive d Time (Source) Location / / Volume Laterality Blood specimen 07/12/2017 4:11 AM 017 8:57 (specimen) EST AM EST Resulting Agency Comment Spec In Lab Makayla Katie QUINONES CHEMISTRY ORDERABLES Performing Organization Address City/State/[place] [address] (ABNORMAL) Prothrombin Time (07/12/2017 [...] City/[facility]/[place] [address] Potassium (07/12/2017 4:11 AM EST) athologist Signature Potassium 3.8 3.5 - 5.0 [facility] mmol/L [facility] Comment: Please note: ??Patients with [...] City/[facility]/[place] [address] POCT Glucose (07/12/2017 4:10 AM EST) athologist Signature POC Glucose 90 65 - 199 [facility]/dL [facility] Comment: Supplemental ranges: <140 mg/dL before meals <180 mg/dL all other times of the day Specimen Anatomical Collection Method Collection Time Receive d Time (Source) Location / / Volume Laterality Blood specimen 07/12/2017 4:10 AM 017 4:10 (specimen) EST AM EST Yuan Webber MD POINT OF CARE TEST ORDERABLE S Performing Organization Address City/[facility]/[place] [address] POCT Glucose (07/11/2017 11:57 PM EST) athologist Signature POC Glucose 98 65 - 199 [facility]/dL [facility] Comment: Supplemental ranges: <140 mg/dL before meals <180 mg/dL all other times of the day Specimen Anatomical Collection Method Collection Time Receive d Time (Source) Location / / Volume Laterality Blood specimen 07/11/2017 11:57 7 (specimen) PM EST 11:57 PM EST Yuan Webber MD POINT OF CARE TEST ORDERABLE S Performing Organization Address City/State/[place] [address] POCT Glucose (07/11/2017 8:32 PM EST) P athologist Signature POC Glucose 146 65 - 199 [facility] mg/dL [facility] Comment: Supplemental ranges: <140 mg/dL before meals <180 mg/dL all other times of the day Specimen Anatomical Collection Method Collection Time Receive d Time (Source) Location / / Volume Laterality Blood specimen 07/11/2017 8:32 PM 017 8:32 (specimen) EST PM EST Yuan Webber MD POINT OF CARE TEST ORDERABLE S Performing Organization Address City/State/[place] [address] XR Chest PA & [...] e xtubated, left chest tube removed, and Hayes-Suzi catheter removed since the study. Atelectasis at [...] e xtubated, left chest tube removed, and Hayes-Suzi catheter removed since the study. Atelectasis at [...] POC Glucose 223 (H) 65 - 199 [facility] Comment: Supplemental ranges: <140 mg/dL before meals <180 mg/dL all other times of the day Specimen Anatomical Collection Method Collection Time Receive d Time (Source) Location / / Volume Laterality Blood specimen 07/11/2017 4:05 PM 017 4:05 (specimen) EST PM EST Yuan Webber MD POINT OF CARE TEST ORDERABLE S Performing Organization Address City/[facility]/[place] [address] POCT Glucose (07/11/2017 11:55 AM EST) athologist Signature POC Glucose 176 65 - 199 [place] mg/dL [facility] Comment: Supplemental ranges: <140 mg/dL before meals <180 mg/dL all other times of the day Specimen Anatomical Collection Method Collection Time Receive d Time (Source) Location / / Volume Laterality Blood specimen 07/11/2017 11:55 7 (specimen) AM EST 11:55 AM EST Yuan Webber MD POINT OF CARE TEST ORDERABLE S Performing Organization Address City/State/[place] [address] POCT Glucose (07/11/2017 7:53 AM EST) athologist Signature POC Glucose 189 65 - 199 [facility] mg/dL [facility] Comment: Supplemental ranges: <140 mg/dL before meals <180 mg/dL all other times of the day Specimen Anatomical Collection Method Collection Time Receive d Time (Source) Location / / Volume Laterality Blood specimen 07/11/2017 7:53 AM 017 7:53 (specimen) EST AM EST Yuan Webber MD POINT OF CARE TEST ORDERABLE S Performing Organization Address City/[facility]/ZIP [facility] Phon e Number [address] POCT Glucose (07/11/2017 4:22 AM EST) athologist Signature POC Glucose 151 65 - 199 [facility] mg/dL [facility] Comment: Supplemental ranges: <140 mg/dL before meals <180 mg/dL all other times of the day Specimen Anatomical Collection Method Collection Time Receive d Time (Source) Location / / Volume Laterality Blood specimen 07/11/2017 4:22 AM 017 4:22 (specimen) EST AM EST Yuan Webber MD POINT OF CARE TEST ORDERABLE S Performing Organization Address City/[facility] Phon e Number [address] Potassium (07/11/2017 2:20 AM EST) athologist Signature Potassium 4.5 3.5 - 5.0 [facility] mmol/L [facility] Comment: Please note: ??Patients with [...] Address City/State/ZIP Code Phon e Number [address] POCT Glucose (07/11/2017 12:17 AM EST) athologist Signature POC Glucose 162 65 - 199 [place] mg/dL [facility] Comment: Supplemental ranges: <140 mg/dL before meals <180 mg/dL all other times of the day Specimen Anatomical Collection Method Collection Time Receive d Time (Source) Location / / Volume Laterality Blood specimen 07/11/2017 12:17 7 (specimen) AM EST 12:17 AM EST Yuan Webber MD POINT OF CARE TEST ORDERABLE S Performing Organization Address City/[facility]/ZIP Code Phon e Number [address] POCT Glucose (07/10/2017 8:47 PM EST) athologist Signature POC Glucose 191 65 - 199 [place] mg/dL [facility] Comment: Supplemental ranges: <140 [...] [facility]/ZIP Code Phon e [place] [address] POCT Glucose (07/10/2017 4:06 PM EST) athologist Signature POC Glucose 131 65 - 199 [place] mg/dL [facility] Comment: Supplemental ranges: <140 mg/dL before meals <180 mg/dL all other times of the day Specimen Anatomical Collection Method Collection Time Receive d Time (Source) Location / / Volume Laterality Blood specimen 07/10/2017 4:06 PM 017 4:06 (specimen) EST PM EST Yuan Webber MD POINT OF CARE TEST ORDERABLE S Performing Organization Address City/State/[place] [address] POCT Glucose (07/10/2017 3:08 PM EST) athologist Signature POC Glucose 151 65 - 199 [place] mg/dL [facility] Comment: Supplemental ranges: <140 mg/dL before meals <180 mg/dL all other times of the day Specimen Anatomical Collection Method Collection Time Receive d Time (Source) Location / / Volume Laterality Blood specimen 07/10/2017 3:08 PM 017 3:08 (specimen) EST PM EST Yuan Webber MD POINT OF CARE TEST ORDERABLE S Performing Organization Address City/State/ZIP Code Phon e Number [address] POCT Glucose (07/10/2017 2:25 PM EST) athologist Signature POC Glucose 146 65 - 199 [facility] mg/dL [facility] Comment: Supplemental ranges: <140 mg/dL before meals <180 mg/dL all other times of the day Specimen Anatomical Collection Method Collection Time Receive d Time (Source) Location / / Volume Laterality Blood specimen 07/10/2017 2:25 PM 017 2:25 (specimen) EST PM EST Yuan Webber MD POINT OF CARE TEST ORDERABLE S Performing Organization Address City/State/ZIP Code Phon e Number [address] POCT Glucose (07/10/2017 1:23 PM EST) athologist Signature POC Glucose 166 65 - 199 [place] mg/dL [facility] Comment: Supplemental ranges: <140 mg/dL before meals <180 mg/dL all other times of the day Specimen Anatomical Collection Method Collection Time Receive d Time (Source) Location / / Volume Laterality Blood specimen 07/10/2017 1:23 PM 017 1:23 (specimen) EST PM EST Yuan Webber MD POINT OF CARE TEST ORDERABLE S Performing Organization Address City/State/[place] [address] POCT Glucose (07/10/2017 11:52 AM EST) P athologist Signature POC Glucose 157 65 - 199 [place] mg/dL [facility] Comment: Supplemental ranges: <140 mg/dL before meals <180 mg/dL all other times of the day Specimen Anatomical Collection Method Collection Time Receive d Time (Source) Location / / Volume Laterality Blood specimen 07/10/2017 11:52 7 (specimen) AM EST 11:52 AM EST Yuan Webber MD POINT OF CARE TEST ORDERABLE S Performing Organization Address City/State/ZIP Code Phon e Number [address] POCT Glucose (07/10/2017 11:01 AM EST) athologist Signature POC Glucose 158 65 - 199 [facility] mg/dL [facility] Comment: Supplemental ranges: <140 mg/dL before meals <180 mg/dL all other times of the day Specimen Anatomical Collection Method Collection Time Receive d Time (Source) Location / / Volume Laterality Blood specimen 07/10/2017 11:01 7 (specimen) AM EST 11:01 AM EST Yuan Webber MD POINT OF CARE TEST ORDERABLE S Performing Organization Address City/State/ZIP Code Phon e Number [address] POCT Glucose (07/10/2017 9:54 AM EST) athologist Signature POC Glucose 160 65 - 199 [place] mg/dL [facility] Comment: Supplemental ranges: <140 mg/dL before meals <180 mg/dL all other times of the day Specimen Anatomical Collection Method Collection Time Receive d Time (Source) Location / / Volume Laterality Blood specimen 07/10/2017 9:54 AM 017 9:54 (specimen) EST AM EST Yuan Webber MD POINT OF CARE TEST ORDERABLE S Performing Organization Address City/State/[place] [address] POCT Glucose (07/10/2017 8:58 AM EST) athologist Signature POC Glucose 183 65 - 199 [place] mg/dL [facility] Comment: Supplemental ranges: <140 mg/dL before meals <180 mg/dL all other times of the day Specimen Anatomical Collection Method Collection Time Receive d Time (Source) Location / / Volume Laterality Blood specimen 07/10/2017 8:58 AM 017 8:58 (specimen) EST AM EST Yuan Webber MD POINT OF CARE TEST ORDERABLE S Performing Organization Address City/State/[place] [address] POCT Glucose (07/10/2017 8:01 AM EST) athologist Signature POC Glucose 173 65 - 199 [place] mg/dL [facility] Comment: Supplemental ranges: <140 mg/dL before meals <180 mg/dL all other times of the day Specimen Anatomical Collection Method Collection Time Receive d Time (Source) Location / / Volume Laterality Blood specimen 07/10/2017 8:01 AM 017 8:01 (specimen) EST AM EST Yuan Webber MD POINT OF CARE TEST ORDERABLE S Performing Organization Address City/State/ZIP Code Phon e Number [address] POCT Glucose (07/10/2017 7:05 AM EST) athologist Signature POC Glucose 166 65 - 199 [place] mg/dL [facility] Comment: Supplemental ranges: <140 mg/dL before meals <180 mg/dL all other times of the day Specimen Anatomical Collection Method Collection Time Receive d Time (Source) Location / / Volume Laterality Blood specimen 07/10/2017 7:05 AM 017 7:05 (specimen) EST AM EST Yuan Webber MD POINT OF CARE TEST ORDERABLE S Performing Organization Address City/State/ZIP Code Phon e Number [address] POCT Glucose (07/10/2017 6:00 AM EST) P athologist Signature POC Glucose 162 65 - 199 [facility] mg/dL [facility] Comment: Supplemental ranges: <140 mg/dL before meals <180 mg/dL all other times of the day Specimen Anatomical Collection Method Collection Time Receive d Time (Source) Location / / Volume Laterality Blood specimen 07/10/2017 6:00 AM 017 6:00 (specimen) EST AM EST Yuan Webber MD POINT OF CARE TEST ORDERABLE S Performing Organization Address City/State/[place] [address] (ABNORMAL) Differential, Automated (07/10/2017 4:28 AM EST) Patholo gist Method Time Signature Neutrophils % 87.9 % [facility] LABORATORY Neutr Abs (ANC) 10.70 (H) 1.70 - [facility] 6.10 [facility] x10(3)/[facility] L LABORATORY Lymphocytes % 3.9 % [facility] Lymphocytes Abs 0.5 (L) 0.9 - 3.2 [facility] x10(3)/[facility] LABORATORY Monocytes % 7.0 % [facility] Monocyte Abs 0.8 0.3 - 0.9 [facility] x10(3)/[facility] LABORATORY Eosinophils % 0.3 % [facility] Eosinophils Abs 0.0 0.0 - 0.4 [facility] x10(3)/[facility] LABORATORY Basophils % 0.2 % [facility] LAB[facility]ATORY Basophils Abs 0.0 0.0 - 0.1 [facility] x10(3)/[facility] LABORATORY Immature [...] Organization Address City/State/[place] [address] (ABNORMAL) Hemogram (07/10/2017 4:28 AM EST) Analysis Performed At Patho logist Time Signature WBC 12.2 (H) 4.0 - 9.5 [facility] x10(3)/[facility] LABORATORY RBC 3.31 (L) 4.58 - [facility] 5.54 [facility] x10(6)/[facility] LABORATORY Hemoglobin 9.8 (L) 13.7 - [facility] 16.5 gm/dL [facility] Hematocrit 30.0 (L) 40.5 - [facility] 48.5 % [facility] MCV 90.6 82.9 - [facility] 93.1 [facility] LABORATORY MCH 29.6 27.5 - [facility] 32.1 pg [facility] LAB[facility] MCHC 32.7 32.0 - [facility] 35.7 gm/dL [facility] Platelets 135 (L) 145 - 357 [facility] x10(3)/[facility] LABORATORY RDWSD 50.8 (H) 36.0 - [facility] 45.0 [facility] LABORATORY RDWCV 15.4 (H) 11.4 - [facility] 13.8 % [facility] LAB[facility]AT[facility] MPV 10.0 7.6 - 12.9 [facility] LABORATORY nRBC % Auto 0.0 % [facility] LABORATORY nRBC Abs Auto 0.000 0.000 - [facility] 0.000 [facility] x10(3)/[facility] LABORATORY Specimen Anatomical Collection Method Collection Time Receive d Time (Source) Location / / Volume Laterality Blood specimen 07/10/2017 4:28 AM 017 4:36 (specimen) EST AM EST Resulting Agency Comment Spec In Lab Yuan Webber MD HEMATOLOGY ORDERABLES Performing Organization Address City/[facility]/[place] [address] (ABNORMAL) Basic Metabolic Panel (non-fasting) (07/10/2017 4:28 AM EST) P athologist Signature Glucose Lvl 178 65 - 199 [facility] mg/dL [facility] Comment: [...] in patients with acute kidney failure. [email or web address] Specimen Anatomical Collection Method Collection Time Receive d Time (Source) Location / / Volume Laterality Blood specimen 07/10/2017 4:28 AM 017 4:36 (specimen) EST AM EST Resulting Agency Comment Spec In Lab Yaun Webber MD CHEMISTRY ORDERABLES Performing Organization Address City/[facility]/[place] [address] POCT Glucose (07/10/2017 4:26 AM EST) P athologist Signature POC Glucose 176 65 - 199 [facility]dL [facility] Comment: Supplemental ranges: <140 mg/dL before meals <180 mg/dL all other times of the day Specimen Anatomical Collection Method Collection Time Receive d Time (Source) Location / / Volume Laterality Blood specimen 07/10/2017 4:26 AM 017 4:26 (specimen) EST AM EST Yuan Webber MD POINT OF CARE TEST ORDERABLE S Performing Organization Address City/State/[place] [address] (ABNORMAL) POCT Glucose (07/10/2017 3:06 AM EST) athologist Signature POC Glucose 204 (H) 65 - 199 [facility] mg/dL [facility] Comment: Supplemental ranges: <140 mg/dL before meals <180 mg/dL all other times of the day Specimen Anatomical Collection Method Collection Time Receive d Time (Source) Location / / Volume Laterality Blood specimen 07/10/2017 3:06 AM 017 3:06 (specimen) EST AM EST Yuan Webber MD POINT OF CARE TEST ORDERABLE S Performing Organization Address City/State/[place] [address] (ABNORMAL) POCT Glucose (07/10/2017 2:10 AM EST) athologist Signature POC Glucose 203 (H) 65 - 199 [facility] mg/dL [facility] Comment: Supplemental ranges: <140 mg/dL before meals <180 mg/dL all other times of the day Specimen Anatomical Collection Method Collection Time Receive d Time (Source) Location / / Volume Laterality Blood specimen 07/10/2017 2:10 AM 017 2:10 (specimen) EST AM EST Yuan Webber MD POINT OF CARE TEST ORDERABLE S Performing Organization Address City/State/ZIP Code Phon e Number [address] POCT Glucose (07/10/2017 1:09 AM EST) P athologist Signature POC Glucose 196 65 - 199 [place] mg/dL [facility] Comment: Supplemental ranges: <140 mg/dL before meals <180 mg/dL all other times of the day Specimen Anatomical Collection Method Collection Time Receive d Time (Source) Location / / Volume Laterality Blood specimen 07/10/2017 1:09 AM 017 1:09 (specimen) EST AM EST Yuan Webber MD POINT OF CARE TEST ORDERABLE S Performing Organization Address City/State/ZIP Code Phon e Number [address] POCT Glucose (07/10/2017 12:10 AM EST) athologist Signature POC Glucose 173 65 - 199 [place] mg/dL [facility] Comment: Supplemental ranges: <140 mg/dL before meals <180 mg/dL all other times of the day Specimen Anatomical Collection Method Collection Time Receive d Time (Source) Location / / Volume Laterality Blood specimen 07/10/2017 12:10 7 (specimen) AM EST 12:10 AM EST Yuna Webber MD POINT OF CARE TEST ORDERABLE S Performing Organization Address City/State/ZIP Code Phon e Number [address] POCT Glucose (07/09/2017 11:01 PM EST) athologist Signature POC Glucose 140 65 - 199 [place] mg/dL [facility] Comment: Supplemental ranges: <140 mg/dL before meals <180 mg/dL all other times of the day Specimen Anatomical Collection Method Collection Time Receive d Time (Source) Location / / Volume Laterality Blood specimen 07/09/2017 11:01 7 (specimen) PM EST 11:01 PM EST Yuan Webber MD POINT OF CARE TEST ORDERABLE S Performing Organization Address City/State/[place] [address] POCT Glucose (07/09/2017 10:05 PM EST) athologist Signature POC Glucose 144 65 - 199 [place] mg/dL [facility] Comment: Supplemental ranges: <140 mg/dL before meals <180 mg/dL all other times of the day Specimen Anatomical Collection Method Collection Time Receive d Time (Source) Location / / Volume Laterality Blood specimen 07/09/2017 10:05 7 (specimen) PM EST 10:05 PM EST Yuan Webber MD POINT OF CARE TEST ORDERABLE S Performing Organization Address City/State/ZIP Code Phon e Number [address] POCT Glucose (07/09/2017 9:31 PM EST) athologist Signature POC Glucose 121 65 - 199 [place] mg/dL [facility] Comment: Supplemental ranges: <140 mg/dL before meals <180 mg/dL all other times of the day Specimen Anatomical Collection Method Collection Time Receive d Time (Source) Location / / Volume Laterality Blood specimen 07/09/2017 9:31 PM 017 9:31 (specimen) EST PM EST Yuan Webber MD POINT OF CARE TEST ORDERABLE S Performing Organization Address City/State/ZIP Code Phon e Number [address] POCT Glucose (07/09/2017 9:03 PM EST) athologist Signature POC Glucose 98 65 - 199 [place] mg/dL [facility] Comment: Supplemental ranges: <140 mg/dL before meals <180 mg/dL all other times of the day Specimen Anatomical Collection Method Collection Time Receive d Time (Source) Location / / Volume Laterality Blood specimen 07/09/2017 9:03 PM 017 9:03 (specimen) EST PM EST Yuan Webber MD POINT OF CARE TEST ORDERABLE S Performing Organization Address City/State/ZIP Code Phon e Number [address] POCT Glucose (07/09/2017 8:09 PM EST) athologist Signature POC Glucose 117 65 - 199 [place] mg/dL [facility] Comment: Supplemental ranges: <140 mg/dL before meals <180 mg/dL all other times of the day Specimen Anatomical Collection Method Collection Time Receive d Time (Source) Location / / Volume Laterality Blood specimen 07/09/2017 8:09 PM 017 8:09 (specimen) EST PM EST Yuan Webber MD POINT OF CARE TEST ORDERABLE S Performing Organization Address City/State/[place] [address] POCT Glucose (07/09/2017 5:40 PM EST) athologist Signature POC Glucose 155 65 - 199 [place] mg/dL [facility] Comment: Supplemental ranges: <140 mg/dL before meals <180 mg/dL all other times of the day Specimen Anatomical Collection Method Collection Time Receive d Time (Source) Location / / Volume Laterality Blood specimen 07/09/2017 5:40 PM 017 5:40 (specimen) EST PM EST Yuan Webber MD POINT OF CARE TEST ORDERABLE S Performing Organization Address City/State/[place] [address] POCT Glucose (07/09/2017 4:24 PM EST) athologist Signature POC Glucose 164 65 - 199 [place] mg/dL [facility] Comment: Supplemental ranges: <140 mg/dL before meals <180 mg/dL all other times of the day Specimen Anatomical Collection Method Collection Time Receive d Time (Source) Location / / Volume Laterality Blood specimen 07/09/2017 4:24 PM 017 4:24 (specimen) EST PM EST Yuan Webber MD POINT OF CARE TEST ORDERABLE S Performing Organization Address City/State/ZIP Code Phon e Number [address] POCT Glucose (07/09/2017 3:19 PM EST) athologist Signature POC Glucose 166 65 - 199 [place] mg/dL [facility] Comment: Supplemental ranges: <140 mg/dL before meals <180 mg/dL all other times of the day Specimen Anatomical Collection Method Collection Time Receive d Time (Source) Location / / Volume Laterality Blood specimen 07/09/2017 3:19 PM 017 3:19 (specimen) EST PM EST Yuan Webber MD POINT OF CARE TEST ORDERABLE S Performing Organization Address City/State/[place] [address] POCT Glucose (07/09/2017 2:26 PM EST) athologist Signature POC Glucose 179 65 - 199 [facility] mg/dL [facility] Comment: Supplemental ranges: <140 mg/dL before meals <180 mg/dL all other times of the day Specimen Anatomical Collection Method Collection Time Receive d Time (Source) Location / / Volume Laterality Blood specimen 07/09/2017 2:26 PM 017 2:26 (specimen) EST PM EST Yuan Webber MD POINT OF CARE TEST ORDERABLE S Performing Organization Address City/State/[place] [address] (ABNORMAL) POCT Glucose (07/09/2017 1:29 PM EST) athologist Signature POC Glucose 210 (H) 65 - 199 [place] mg/dL [facility] Comment: Supplemental ranges: <140 mg/dL before meals <180 mg/dL all other times of the day Specimen Anatomical Collection Method Collection Time Receive d Time (Source) Location / / Volume Laterality Blood specimen 07/09/2017 1:29 PM 017 1:29 (specimen) EST PM EST Yuan Webber MD POINT OF CARE TEST ORDERABLE S Performing Organization Address City/State/[place] [address] POCT Glucose (07/09/2017 12:20 PM EST) athologist Signature POC Glucose 172 65 - 199 [place] mg/dL [facility] Comment: Supplemental ranges: <140 mg/dL before meals <180 mg/dL all other times of the day Specimen Anatomical Collection Method Collection Time Receive d Time (Source) Location / / Volume Laterality Blood specimen 07/09/2017 12:20 7 (specimen) PM EST 12:20 PM EST Yuan Webber MD POINT OF CARE TEST ORDERABLE S Performing Organization Address City/State/ZIP Code Phon e Number [address] POCT Glucose (07/09/2017 11:24 AM EST) athologist Signature POC Glucose 156 65 - 199 [facility] mg/dL [facility] Comment: Supplemental ranges: <140 mg/dL before meals <180 mg/dL all other times of the day Specimen Anatomical Collection Method Collection Time Receive d Time (Source) Location / / Volume Laterality Blood specimen 07/09/2017 11:24 7 (specimen) AM EST 11:24 AM EST Yuan Webber MD POINT OF CARE TEST ORDERABLE S Performing Organization Address City/State/ZIP Code Phon e Number [address] POCT Glucose (07/09/2017 11:11 AM EST) athologist Signature POC Glucose 172 65 - 199 [place] mg/dL [facility] Comment: Supplemental ranges: <140 mg/dL before meals <180 mg/dL all other times of the day Specimen Anatomical Collection Method Collection Time Receive d Time (Source) Location / / Volume Laterality Blood specimen 07/09/2017 11:11 7 (specimen) AM EST 11:11 AM EST Yuan Webber MD POINT OF CARE TEST ORDERABLE S Performing Organization Address City/State/ZIP Code Phon e Number [address] POCT Glucose (07/09/2017 10:08 AM EST) athologist Signature POC Glucose 176 65 - 199 [place] mg/dL [facility] Comment: Supplemental ranges: <140 mg/dL before meals <180 mg/dL all other times of the day Specimen Anatomical Collection Method Collection Time Receive d Time (Source) Location / / Volume Laterality Blood specimen 07/09/2017 10:08 7 (specimen) AM EST 10:08 AM EST Yuan Webber MD POINT OF CARE TEST ORDERABLE S Performing Organization Address City/State/[place] [address] POCT Glucose (07/09/2017 8:02 AM EST) P athologist Signature POC Glucose 178 65 - 199 [facility] mg/dL [facility] Comment: Supplemental ranges: <140 mg/dL before meals <180 mg/dL all other times of the day Specimen Anatomical Collection Method Collection Time Receive d Time (Source) Location / / Volume Laterality Blood specimen 07/09/2017 8:02 AM 017 8:02 (specimen) EST AM EST Yuan Webber MD POINT OF CARE TEST ORDERABLE S Performing Organization Address City/State/[place] [address] (ABNORMAL) BLOOD GAS 2 ARTERIAL (07/09/2017 5:37 AM EST) Analysis Performed At Patho logist Time Signature pH Art 7.36 7.35 - [facility] 7.45 [facility] pCO2 Art 38 35 - 45 [facility] mmHg [facility] pO2 Art 79 (L) 85 - 104 [facility] mmHg [facility] HCO3 Art 20.9 20.0 - [facility] 26.0 [facility] mmol/L [facility] BE Art -4.6 (L) -3.0 - 3.0 [facility] mmol/L [facility] Hgb Blood Gas 10.5 (L) 13.7 - [facility] 16.5 gm/dL [facility] O2HB Art 93.8 (L) 94.0 - [facility] 97.0 % [facility] COHB Art 0.3 % [facility] [...] Whole Bld 175 65 - 199 mg/dL [facility] Comment: Diabetes: >=200 mg/dL plus symp toms. Lactate WB 1.0 0.5 - 2.2 mmol/L [facility] FIO2 Art 40 % [facility] PF Ratio Art 198 [facility] Specimen Anatomical Collection Method Collection Time Receive d Time (Source) Location / / Volume Laterality Blood specimen 07/09/2017 5:37 AM 017 5:37 (specimen) EST AM EST Yuan Webber MD CHEMISTRY ORDERABLES Performing Organization Address City/State/[place] [address] POCT Glucose (07/09/2017 3:27 AM EST) P athologist Signature POC Glucose 192 65 - 199 [facility] mg/dL [facility] Comment: Supplemental ranges: <140 mg/dL before meals <180 mg/dL all other times of the day Specimen Anatomical Collection Method Collection Time Receive d Time (Source) Location / / Volume Laterality Blood specimen 07/09/2017 3:27 AM 017 3:27 (specimen) EST AM EST Yuan Webber MD POINT OF CARE TEST ORDERABLE S Performing Organization Address City/State/[place] [address] (ABNORMAL) Basic Metabolic Panel (non-fasting) (07/09/2017 2:30 AM EST) P athologist Signature Glucose Lvl 179 65 - 199 [facility] mg/dL [facility] Comment: [...] in patients with acute kidney failure. [email or web address] Specimen Anatomical Collection Method Collection Time Receive d Time (Source) Location / / Volume Laterality Blood specimen Venous Draw / 07/09/2017 2:30 AM 2016 2:42 (specimen) Unknown EST AM EST Resulting Agency Comment Spec In Lab Yuan Webber MD CHEMISTRY ORDERABLES Performing Organization Address City/State/[place] [address] (ABNORMAL) Potassium (07/09/2017 2:30 AM EST) P athologist Signature Potassium 5.1 (H) 3.5 - 5.0 [place] mmol/L [facility] Comment: Please note: ??Patients with [...] City/[facility]/[place] [address] (ABNORMAL) Hemogram (07/09/2017 2:30 AM EST) Analysis Performed At Patho logist Time Signature WBC 12.5 (H) 4.0 - 9.5 [place] x10(3)/[facility] LABORATORY RBC 3.38 (L) 4.58 - [place] 5.54 [facility] x10(6)/[facility] LABORATORY Hemoglobin 10.1 (L) 13.7 - [place] 16.5 gm/dL [facility] Hematocrit 30.3 (L) 40.5 - [place] 48.5 % [facility] MCV 89.6 82.9 - [place] 93.1 [facility] LABORATORY MCH 29.9 27.5 - [place] 32.1 pg [facility] MCHC 33.3 32.0 - [place] 35.7 gm/dL [facility] Platelets 127 (L) 145 - 357 [place] x10(3)/[facility] LABORATORY RDWSD 49.3 (H) 36.0 - [place] 45.0 [facility] LABORATORY RDWCV 15.2 (H) 11.4 - [place] 13.8 % [facility] MPV 9.9 7.6 - 12.9 [facility] LABORATORY nRBC % Auto 0.0 % [facility] nRBC Abs Auto 0.000 0.000 - [place] 0.000 [facility] x10(3)/[facility] LABORATORY Specimen Anatomical Collection Method Collection Time Receive d Time (Source) Location / / Volume Laterality Blood specimen 07/09/2017 2:30 AM 017 2:41 (specimen) EST AM EST Resulting Agency Comment Spec In Lab Yuan Webber MD HEMATOLOGY ORDERABLES Performing Organization Address City/State/ZIP Code Phon e Number [address] POCT Glucose (07/09/2017 2:10 AM EST) athologist Signature POC Glucose 169 65 - 199 [facility]/dL [facility] Comment: Supplemental ranges: <140 mg/dL before meals <180 mg/dL all other times of the day Specimen Anatomical Collection Method Collection Time Receive d Time (Source) Location / / Volume Laterality Blood specimen 07/09/2017 2:10 AM 017 2:10 (specimen) EST AM EST Yuan Webber MD POINT OF CARE TEST ORDERABLE S Performing Organization Address City/State/ZIP Code Phon e Number [address] POCT Glucose (07/09/2017 1:01 AM EST) athologist Signature POC Glucose 173 65 - 199 [facility]/dL [facility] Comment: Supplemental ranges: <140 mg/dL before meals <180 mg/dL all other times of the day Specimen Anatomical Collection Method Collection Time Receive d Time (Source) Location / / Volume Laterality Blood specimen 07/09/2017 1:01 AM 017 1:01 (specimen) EST AM EST Yuan Webber MD POINT OF CARE TEST ORDERABLE S Performing Organization Address City/State/ZIP Code Phon e Number [address] Blood culture (07/09/2017 12:40 AM EST) [facility] HipLink Method Time Signature Blood Culture No growth [place] DAV[place] at 5 days. [facility] Specimen Anatomical Collection Method Collection Time Receive d Time (Source) Location / / Volume Laterality Blood specimen STRUCTURE OF RIGHT 07/09/2017 12:40 3:58 (specimen) UPPER LIMB / AM EST AM EST Unknown Resulting Agency Comment Spec In Lab Yuan Webber MD MICROBIOLOGY - BLOOD ORDERAB LES Performing Organization Address City/[facility]/ZIP Code Phon e Number [address] Blood culture (07/09/2017 12:30 AM EST) [facility] [employer] Method Time Signature Blood Culture No growth [place] DAVIS at 5 days. [facility] Specimen Anatomical Collection Method Collection Time Receive d Time (Source) Location / / Volume Laterality Blood specimen STRUCTURE OF LEFT 07/09/2017 12:30 06/25 3:59 (specimen) UPPER LIMB / AM EST AM EST Unknown Resulting Agency Comment Spec In Lab Yuan Webber MD MICROBIOLOGY - BLOOD ORDERAB LES Performing Organization Address City/[facility]/[place] [address] (ABNORMAL) Urinalysis Microscopic Exam (07/09/2017 12:05 AM EST) Analysis Performed At Patho logist Time Signature RBC UA 32 (H) 0 - 3 /HPF [facility] WBC UA 5 (H) 0 - 3 /HPF [facility] Squam Epith UA <1 <=4 /HPF [facility] Hyaline Cast 17 (H) 0 - 2 /LPF [facility] LABORATORY Gran Cast UA 1 (H) <=0 /LPF [facility] Uric Ac Bianca Rare (A) None /HPF [facility] LABORATORY Specimen (Source) Anatomical Collection Method Collection Time Re ceived Time Location / / Volume Laterality Urine specimen 07/09/2017 12:05 7 obtained via AM EST 12:39 AM EST indwelling urinary catheter (specimen) Resulting Agency Comment Spec In Lab Yuan Webber MD URINE ORDERABLES Performing Organization Address City/State/ZIP Code Phon e Number [address] (ABNORMAL) Urinalysis with reflex Culture (07/09/2017 12:05 AM EST) Patholo gist Method Time Signature Glucose UA Negative Negative [facility] Protein UA 30 (A) Negative [facility] mg/dL [facility] Bilirubin UA Negative Negative [facility] mg/dL [facility] Comment: Clinical correlation required for [...] [facility] Nitrite UA Negative Negative [facility] Leukocytes UA Negative Negative [facility] LABORATORY Appearance UA Hazy (A) Clear [facility] LABOR[facility] Spec [place] UA 1.025 1.002 - 1.030 [facility] LAB[facility] Color UA Yellow Yellow [facility] Culture Reflexed No WHITE [...] City/State/ZIP Code Phon e Number [place] [phone] [facility] [address] Drive POCT Glucose (07/08/2017 11:01 PM EST) P athologist Signature POC Glucose 191 65 - 199 [facility] mg/dL [facility] Comment: Supplemental ranges: <140 mg/dL before meals <180 mg/dL all other times of the day Specimen Anatomical Collection Method Collection Time Receive d Time (Source) Location / / Volume Laterality Blood specimen 07/08/2017 11:01 7 (specimen) PM EST 11:01 PM EST Yuan Webber MD POINT OF CARE TEST ORDERABLE S Performing Organization Address City/State/[place] [address] POCT Glucose (07/08/2017 10:04 PM EST) P athologist Signature POC Glucose 198 65 - 199 [facility] mg/dL [facility] Comment: Supplemental ranges: <140 mg/dL before meals <180 mg/dL all other times of the day Specimen Anatomical Collection Method Collection Time Receive d Time (Source) Location / / Volume Laterality Blood specimen 07/08/2017 10:04 7 (specimen) PM EST 10:04 PM EST Yuan Webber MD POINT OF CARE TEST ORDERABLE S Performing Organization Address City/State/[place] [address] Prepare Albumin 5% in [...] Address City/State/ZIP Code Phon e Number [address] POCT Glucose (07/08/2017 8:28 PM EST) P athologist Signature POC Glucose 195 65 - 199 [facility] mg/dL [facility] Comment: Supplemental ranges: <140 mg/dL before meals <180 mg/dL all other times of the day Specimen Anatomical Collection Method Collection Time Receive d Time (Source) Location / / Volume Laterality Blood specimen 07/08/2017 8:28 PM 017 8:28 (specimen) EST PM EST Yuan Webber MD POINT OF CARE TEST ORDERABLE S Performing Organization Address City/[facility]/[place] [address] (ABNORMAL) POCT Glucose (07/08/2017 7:13 PM EST) P athologist Signature POC Glucose 220 (H) 65 - 199 [facility] mg/dL [facility] Comment: Supplemental ranges: <140 mg/dL before meals <180 mg/dL all other times of the day Specimen Anatomical Collection Method Collection Time Receive d Time (Source) Location / / Volume Laterality Blood specimen 07/08/2017 7:13 PM 017 7:13 (specimen) EST PM EST Yuan Webber MD POINT OF CARE TEST ORDERABLE S Performing Organization Address City/[facility]/[place] [address] POCT Glucose (07/08/2017 5:04 PM EST) P athologist Signature POC Glucose 147 65 - 199 [facility] mg/dL [facility] Comment: Supplemental ranges: <140 mg/dL before meals <180 mg/dL all other times of the day Specimen Anatomical Collection Method Collection Time Receive d Time (Source) Location / / Volume Laterality Blood specimen 07/08/2017 5:04 PM 017 5:04 (specimen) EST PM EST Yuan Webber MD POINT OF CARE TEST ORDERABLE S Performing Organization Address City/State/[place] [address] [address] [address] Drive (ABNORMAL) BLOOD GAS 2 ARTERIAL (07/08/2017 4:13 PM EST) Analysis Performed At Patho logist Time Signature pH Art 7.38 7.35 - [facility] 7.45 [facility] pCO2 Art 36 35 - 45 [facility] LABORATORY pO2 Art 91 85 - 104 [facility] LABORATORY HCO3 Art 20.9 20.0 - [facility] 26.0 [facility] mmol/L [facility] LABORATORY BE Art -4.2 (L) -3.0 - 3.0 [facility] mmol/L [facility] Hgb Blood Gas 11.7 (L) 13.7 - [facility] 16.5 gm/dL [facility] O2HB Art 95.1 94.0 - [facility] 97.0 % [facility] COHB Art 0.6 % [facility] Whole Bld 155 65 - 199 mg/dL [facility] Comment: Diabetes: >=200 mg/dL plus symp toms. Lactate WB 1.4 0.5 - 2.2 mmol/L [facility] FIO2 Art 40 % [facility] PF Ratio Art 228 [facility] LABORATORY Specimen Anatomical Collection Method Collection Time Receive d Time (Source) Location / / Volume Laterality Blood specimen 07/08/2017 4:13 PM 017 4:13 (specimen) EST PM EST Yuan Webber MD CHEMISTRY ORDERABLES Performing Organization Address City/State/[place] [address] POCT Glucose (07/08/2017 4:01 PM EST) athologist Signature POC Glucose 148 65 - 199 [place] mg/dL [facility] Comment: Supplemental ranges: <140 mg/dL before meals <180 mg/dL all other times of the day Specimen Anatomical Collection Method Collection Time Receive d Time (Source) Location / / Volume Laterality Blood specimen 07/08/2017 4:01 PM 017 4:01 (specimen) EST PM EST Yuan Webber MD POINT OF CARE TEST ORDERABLE S Performing Organization Address City/State/ZIP Code Phon e Number [address] POCT Glucose (07/08/2017 3:21 PM EST) athologist Signature POC Glucose 118 65 - 199 [facility] RYAN mg/dL [facility] Comment: Supplemental ranges: <140 mg/dL before meals <180 mg/dL all other times of the day Specimen Anatomical Collection Method Collection Time Receive d Time (Source) Location / / Volume Laterality Blood specimen 07/08/2017 3:21 PM 017 3:21 (specimen) EST PM EST Yuan Webber MD POINT OF CARE TEST ORDERABLE S Performing Organization Address City/State/ZIP Code Phon e Number [address] POCT Glucose (07/08/2017 2:01 PM EST) athologist Signature POC Glucose 129 65 - 199 [place] mg/dL [facility] Comment: Supplemental ranges: <140 mg/dL before meals <180 mg/dL all other times of the day Specimen Anatomical Collection Method Collection Time Receive d Time (Source) Location / / Volume Laterality Blood specimen 07/08/2017 2:01 PM 017 2:01 (specimen) EST PM EST Yuan Webber MD POINT OF CARE TEST ORDERABLE S Performing Organization Address City/State/ZIP Code Phon e Number [address] POCT Glucose (07/08/2017 11:53 AM EST) athologist Signature POC Glucose 156 65 - 199 [facility] Comment: Supplemental ranges: <140 mg/dL before meals <180 mg/dL all other times of the day Specimen Anatomical Collection Method Collection Time Receive d Time (Source) Location / / Volume Laterality Blood specimen 07/08/2017 11:53 7 (specimen) AM EST 11:53 AM EST Yuan Webber MD POINT OF CARE TEST ORDERABLE S Performing Organization Address City/State/[place] [address] POCT Glucose (07/08/2017 11:04 AM EST) athologist Signature POC Glucose 181 65 - 199 [facility] mg/dL [facility] Comment: Supplemental ranges: <140 mg/dL before meals <180 mg/dL all other times of the day Specimen Anatomical Collection Method Collection Time Receive d Time (Source) Location / / Volume Laterality Blood specimen 07/08/2017 11:04 7 (specimen) AM EST 11:04 AM EST Yuan Webber MD POINT OF CARE TEST ORDERABLE S Performing Organization Address City/[facility]/[place] [address] (ABNORMAL) POCT Glucose (07/08/2017 9:24 AM EST) athologist Signature POC Glucose 203 (H) 65 - 199 [facility] mg/dL [facility] Comment: Supplemental ranges: <140 mg/dL before meals <180 mg/dL all other times of the day Specimen Anatomical Collection Method Collection Time Receive d Time (Source) Location / / Volume Laterality Blood specimen 07/08/2017 9:24 AM 017 9:24 (specimen) EST AM EST Yuan Webber MD POINT OF CARE TEST ORDERABLE S Performing Organization Address City/State/[place] [address] APTT (07/08/2017 8:40 AM [...] City/[facility]/[place] [address] (ABNORMAL) Prothrombin Time (07/08/2017 [...] Organization Address City/State/[place] [address] (ABNORMAL) POCT Glucose (07/08/2017 7:38 AM EST) athologist Signature POC Glucose 232 (H) 65 - 199 [facility] mg/dL [facility] Comment: Supplemental ranges: <140 mg/dL before meals <180 mg/dL all other times of the day Specimen Anatomical Collection Method Collection Time Receive d Time (Source) Location / / Volume Laterality Blood specimen 07/08/2017 7:38 AM 017 7:38 (specimen) EST AM EST Yuan Webber MD POINT OF CARE TEST ORDERABLE S Performing Organization Address City/State/[place] [address] (ABNORMAL) POCT Glucose (07/08/2017 7:07 AM EST) athologist Signature POC Glucose 234 (H) 65 - 199 [place] mg/dL [facility] Comment: Supplemental ranges: <140 mg/dL before meals <180 mg/dL all other times of the day Specimen Anatomical Collection Method Collection Time Receive d Time (Source) Location / / Volume Laterality Blood specimen 07/08/2017 7:07 AM 017 7:07 (specimen) EST AM EST Yuan Webber MD POINT OF CARE TEST ORDERABLE S Performing Organization Address City/State/[place] [address] (ABNORMAL) POCT Glucose (07/08/2017 6:04 AM EST) athologist Signature POC Glucose 225 (H) 65 - 199 [place] mg/dL [facility] Comment: Supplemental ranges: <140 mg/dL before meals <180 mg/dL all other times of the day Specimen Anatomical Collection Method Collection Time Receive d Time (Source) Location / / Volume Laterality Blood specimen 07/08/2017 6:04 AM 017 6:04 (specimen) EST AM EST Yuan Webber MD POINT OF CARE TEST ORDERABLE S Performing Organization Address City/State/[place] [address] (ABNORMAL) POCT Glucose (07/08/2017 5:31 AM EST) athologist Signature POC Glucose 216 (H) 65 - 199 [place] mg/dL [facility] Comment: Supplemental ranges: <140 mg/dL before meals <180 mg/dL all other times of the day Specimen Anatomical Collection Method Collection Time Receive d Time (Source) Location / / Volume Laterality Blood specimen 07/08/2017 5:31 AM 017 5:31 (specimen) EST AM EST Yuan Webber MD POINT OF CARE TEST ORDERABLE S Performing Organization Address City/State/[place] [address] (ABNORMAL) POCT Glucose (07/08/2017 4:52 AM EST) P athologist Signature POC Glucose 257 (H) 65 - 199 [facility] mg/dL [facility] Comment: Supplemental ranges: <140 mg/dL before meals <180 mg/dL all other times of the day Specimen Anatomical Collection Method Collection Time Receive d Time (Source) Location / / Volume Laterality Blood specimen 07/08/2017 4:52 AM 017 4:52 (specimen) EST AM EST Daphne Shahid MD POINT OF CARE TEST ORDERABLE S Performing Organization Address City/[facility]/[place] [address] (ABNORMAL) BLOOD GAS 2 ARTERIAL (07/08/2017 4:04 AM EST) Analysis Performed At Patho logist Time Signature pH Art 7.30 (L) 7.35 - [facility] 7.45 [facility] pCO2 Art 41 35 - 45 [facility] mmHg [facility] pO2 Art 83 (L) 85 - 104 [facility] mmHg [facility] HCO3 Art 19.6 (L) 20.0 - [facility] 26.0 [facility] mmol/L [facility] LABORAT[facility] BE Art -6.8 (L) -3.0 - 3.0 [facility] mmol/L [facility] Hgb Blood Gas 12.2 (L) 13.7 - [facility] 16.5 gm/dL [facility] O2HB Art 93.5 (L) 94.0 - [facility] 97.0 % [facility] COHB Art 0.4 % [facility] [...] Bld 274 (H) 65 - 199 mg/dL [facility] Comment: Diabetes: >=200 mg/dL plus symp toms. Lactate WB 4.4 (Critical) 0.5 - 2.2 mmol/L [facility] LABOR[facility] Comment: Noted by director instrumentation. FIO2 Art 40 % [facility] PF Ratio Art 208 [facility]ORY Specimen Anatomical Collection Method Collection Time Receive d Time (Source) Location / / Volume Laterality Blood specimen 07/08/2017 4:04 AM 017 4:04 (specimen) EST AM EST Daphne Shahid MD CHEMISTRY ORDERABLES Performing Organization Address City/[facility]/[place] [address] Scan, Peripheral Blood (07/08/2017 [...] City/[facility]/[place] [address] (ABNORMAL) Differential, Automated (07/08/2017 4:00 AM EST) [facility] Method Time Signature Neutrophils % 85.4 % [facility] LABORATORY Neutr Abs (ANC) 16.07 (H) 1.70 - [facility] 6.10 [facility] x10(3)/[facility] L LABORATORY Lymphocytes % 3.5 % [facility] LABORATORY Lymphocytes Abs 0.6 (L) 0.9 - 3.2 [facility] x10(3)/[facility] LABORATORY Monocytes % 10.4 % [facility] LABORATORY Monocyte Abs 2.0 (H) 0.3 - 0.9 [facility] x10(3)/[facility] LABORATORY Eosinophils % 0.0 % [facility] LAB[facility]ATORY Eosinophils Abs 0.0 0.0 - 0.4 [facility] x10(3)/[facility] LABORATORY Basophils % 0.1 % [facility] LABORATORY Basophils Abs 0.0 0.0 - 0.1 [facility] x10(3)/[facility] LABORATORY Immature [...] Organization Address City/State/[place] [address] (ABNORMAL) Hemogram (07/08/2017 4:00 AM EST) Analysis Performed At Patho logist Time Signature WBC 18.8 (H) 4.0 - 9.5 [facility] x10(3)/[facility] LABORATORY RBC 4.00 (L) 4.58 - [place] [facility] 5.54 [facility] x10(6)/[facility] LABORATORY Hemoglobin 11.9 (L) 13.7 - [facility] 16.5 gm/dL [facility] Hematocrit 35.9 (L) 40.5 - [facility] 48.5 % [facility] MCV 89.8 82.9 - [facility] 93.1 [facility] LABORATORY MCH 29.8 27.5 - [facility] 32.1 pg [facility] MCHC 33.1 32.0 - [facility] 35.7 gm/dL [facility] Platelets 232 145 - 357 [facility] x10(3)/[facility] LABORATORY RDWSD 47.6 (H) 36.0 - [place] 45.0 [facility] LABORATORY RDWCV 14.5 (H) 11.4 - [facility] 13.8 % [facility] LAB[facility]AT[facility] MPV 9.5 7.6 - 12.9 [facility] nRBC % Auto 0.0 % [facility] LABORATORY nRBC Abs Auto 0.000 0.000 - [place] 0.000 [facility] x10(3)/[facility] LABORATORY Specimen Anatomical Collection Method Collection Time Receive d Time (Source) Location / / Volume Laterality Blood specimen 07/08/2017 4:00 AM 017 4:09 (specimen) EST AM EST Resulting Agency Comment Spec In Lab Yuan Webber MD HEMATOLOGY ORDERABLES Performing Organization Address City/State/[place] [address] (ABNORMAL) Electrolytes panel (07/08/2017 4:00 AM EST) P athologist Signature Sodium 139 135 - 145 [facility] mmol/L [facility] LABOR[facility] Potassium 4.7 3.5 - 5.0 [facility]/L [facility] Comment: result [id number] Please note: [...] Organization Address City/State/[place] [address] (ABNORMAL) Cardiac Enzymes (LEB/CGP) (07/08/2017 4:00 AM EST) P athologist Signature Troponin-T 1.88 (H) 0.00 - [facility] 0.00 ng/mL [facility] Comment: The 99th percentile for [...] additional sample may be indicated. Reference: Third [place] Definition of Myocardial Infarction. Journal of the [employer] College [employer] 2012;60:1581-98 CK, Total 413 [...] City/[facility]/ZIP Code Phon e Number [address] (ABNORMAL) Glucose, fasting (07/08/2017 4:00 AM EST) athologist Signature Glucose 287 (H) 65 - 99 [facility] Fasting mg/dL [facility] Comment: ?Fasting* Glucose Interpretive C [...] of Diabetes Mellitus, Position Statement from the [employer]. ??Diabete s Care, Volume 33, Supplement 1, Jul 2009 Specimen Anatomical Collection Method Collection Time Receive d Time (Source) Location / / Volume Laterality Blood specimen 07/08/2017 4:00 AM 017 4:09 (specimen) EST AM EST Resulting Agency Comment Spec In Lab Yuan Webber MD CHEMISTRY ORDERABLES Performing Organization Address City/[facility]/ZIP [facility] [place] [address] (ABNORMAL) Creatinine (07/08/2017 4:00 AM EST) Analysis Performed At Patho logist Time Signature Creatinine 1.55 (H) 0.80 - [facility] 1.50 mg/dL [facility] Estimated GFR 44 (L) >=60 [facility] Comment: The reported eGFR should be multiplied b y 1.2 for patients. The MDRD is not an appropriate measure o f renal function for patients with body mass extremes or in patients with acute kidney failure. http://Webcentrix/DHnkdep http://Webcentrix/DHMCnkf Specimen Anatomical Collection Method Collection Time Receive d Time (Source) Location / / Volume Laterality Blood specimen 07/08/2017 4:00 AM 017 4:09 (specimen) EST AM EST Resulting Agency Comment Spec In Lab Yuan Webber MD CHEMISTRY ORDERABLES Performing Organization Address City/[facility]/ZIP [facility] Phon e Number [address] BUN (07/08/2017 4:00 AM EST) P athologist Signature BUN 16 10 - 20 [facility] mg/dL [facility] Specimen Anatomical Collection Method Collection Time Receive d Time (Source) Location / / Volume Laterality Blood specimen 07/08/2017 4:00 AM 017 4:09 (specimen) EST AM EST Resulting Agency Comment Spec In Lab Yuan Webber MD CHEMISTRY ORDERABLES Performing Organization Address City/[facility]/ZIP [facility] [place] [address] (ABNORMAL) POCT Glucose (07/08/2017 3:00 AM EST) P athologist Signature POC Glucose 273 (H) 65 - 199 [facility] mg/dL [facility] Comment: Supplemental ranges: <140 mg/dL before meals <180 mg/dL all other times of the day Specimen Anatomical Collection Method Collection Time Receive d Time (Source) Location / / Volume Laterality Blood specimen 07/08/2017 3:00 AM 017 3:00 (specimen) EST AM EST Daphne Shahid MD POINT OF CARE TEST ORDERABLE S Performing Organization Address City/State/[place] [address] (ABNORMAL) POCT Glucose (07/08/2017 1:57 AM EST) athologist Signature POC Glucose 288 (H) 65 - 199 [facility] mg/dL [facility] Comment: Supplemental ranges: <140 mg/dL before meals <180 mg/dL all other times of the day Specimen Anatomical Collection Method Collection Time Receive d Time (Source) Location / / Volume Laterality Blood specimen 07/08/2017 1:57 AM 017 1:57 (specimen) EST AM EST Daphne Shahid MD POINT OF CARE TEST ORDERABLE S Performing Organization Address City/State/[place] [address] (ABNORMAL) POCT Glucose (07/08/2017 1:01 AM EST) athologist Signature POC Glucose 315 (H) 65 - 199 [facility] mg/dL [facility] Comment: Supplemental ranges: <140 mg/dL before meals <180 mg/dL all other times of the day Specimen Anatomical Collection Method Collection Time Receive d Time (Source) Location / / Volume Laterality Blood specimen 07/08/2017 1:01 AM 017 1:01 (specimen) EST AM EST Daphne Shahid MD POINT OF CARE TEST ORDERABLE S Performing Organization Address City/State/[place] [address] (ABNORMAL) BLOOD GAS 2 ARTERIAL (07/08/2017 12:09 AM EST) athologist Signature pH Art 7.26 7.35 - [facility] (Critical) 7.45 [facility] Comment: Noted by director instrumentation. pCO2 Art 41 35 - 45 mmHg [...] [facility] COHB Art 0.2 % [facility] [...] Bld 315 (H) 65 - 199 mg/dL [facility] Comment: Diabetes: >=200 mg/dL plus symp toms. Lactate WB 7.6 (Critical) 0.5 - 2.2 mmol/L [facility] Comment: Noted by director instrumentation. FIO2 Art 40 % [facility] PF Ratio Art 240 [facility] Specimen Anatomical Collection Method Collection Time Receive d Time (Source) Location / / Volume Laterality Blood specimen Arterial Draw / 07/08/2017 12:09 2016 5:31 (specimen) Unknown AM EST AM EST Resulting Agency Comment Spec In Lab Samy Maldonado MD CHEMISTRY ORDERABLES Performing Organization Address City/State/[place] [address] (ABNORMAL) POCT Glucose (07/07/2017 10:56 PM EST) athologist Signature POC Glucose 292 (H) 65 - 199 [facility] mg/dL [facility] Comment: Supplemental ranges: <140 mg/dL before meals <180 mg/dL all other times of the day Specimen Anatomical Collection Method Collection Time Receive d Time (Source) Location / / Volume Laterality Blood specimen 07/07/2017 10:56 7 (specimen) PM EST 10:56 PM EST Daphne Shahid MD POINT OF CARE TEST ORDERABLE S Performing Organization Address City/State/[place] [address] (ABNORMAL) BLOOD GAS 2 ARTERIAL (07/07/2017 10:04 PM EST) athologist Signature pH Art 7.22 7.35 - [facility] (Critical) 7.45 [facility] Comment: Noted by director instrumentation. pCO2 Art 42 35 - 45 mmHg [...] [facility] COHB Art 0.7 % [facility] [...] Bld 304 (H) 65 - 199 mg/dL [facility] Comment: Diabetes: >=200 mg/dL plus symp toms. Lactate WB 8.2 (Critical) 0.5 - 2.2 mmol/L [facility] Comment: Noted by director instrumentation. FIO2 Art 40 % [facility] PF Ratio Art 235 [facility] Specimen Anatomical Collection Method Collection Time Receive d Time (Source) Location / / Volume Laterality Blood specimen 07/07/2017 10:04 7 (specimen) PM EST 10:04 PM EST Daphne Shahid MD CHEMISTRY ORDERABLES Performing Organization Address City/State/ZIP Code Phon e Number [address] (ABNORMAL) Hemoglobin (07/07/2017 10:00 PM EST) P athologist Signature Hemoglobin 12.8 (L) 13.7 - [facility] 16.5 gm/dL [facility]OR[facility] Specimen Anatomical Collection Method Collection Time Receive d Time (Source) Location / / Volume Laterality Blood specimen 07/07/2017 10:00 7 (specimen) PM EST 10:13 PM EST Resulting Agency Comment Spec In Lab Yuan Webber MD HEMATOLOGY ORDERABLES Performing Organization Address City/State/ZIP Code Phon e Number [address] (ABNORMAL) Potassium (07/07/2017 10:00 PM EST) P athologist Signature Potassium 3.4 (L) 3.5 - 5.0 [facility] mmol/L [facility] Comment: Please note: ??Patients with [...] City/[facility]/[place] [address] (ABNORMAL) POCT Glucose (07/07/2017 8:49 PM EST) athologist Signature POC Glucose 241 (H) 65 - 199 [facility] mg/dL [facility] Comment: Supplemental ranges: <140 mg/dL before meals <180 mg/dL all other times of the day Specimen Anatomical Collection Method Collection Time Receive d Time (Source) Location / / Volume Laterality Blood specimen 07/07/2017 8:49 PM 017 8:49 (specimen) EST PM EST Daphne Shahid MD POINT OF CARE TEST ORDERABLE S Performing Organization Address City/[facility]/[place] [address] Prepare Albumin 5% in [...] City/[facility]/[place] [address] EKG 12 Lead (07/07/2017 7:17 PM EST) Component Value Ref Range Test Analysis Performed Pathologis t Method Time At Signature Ventricular rate 75 BPM MUSE SYSTEM Atrial Rate 75 BPM MUSE SYSTEM P-R Interval 168 ms MUSE SYSTEM QRS Duration 104 ms MUSE SYSTEM Q-T Interval 462 ms MUSE SYSTEM QTC Calculated 515 ms MUSE SYSTEM (Bezet) Calculated P [place] 52 degrees MUSE SYSTEM Calculated R [place] -40 degrees MUSE SYSTEM Calculated T [place] 39 degrees MUSE SYSTEM INTERPRETATION Normal sinus [...] pH Art 7.21 7.35 - [facility] (Critical) 7.45 [facility] Comment: Noted by director instrumentation. pCO2 Art 50 (H) 35 - 45 [...] [facility] COHB Art 0.5 % [facility] [...] [facility] Comment: Noted by director instrumentation. Please note: Patients with WBC >100,000 may [...] Bld 270 (H) 65 - 199 mg/dL [facility] Comment: Diabetes: >=200 mg/dL plus symp toms. Lactate WB 4.9 (Critical) 0.5 - 2.2 mmol/L [facility] Comment: Noted by director instrumentation. FIO2 Art 100 % [facility] PF Ratio Art 238 [facility] Specimen Anatomical Collection Method Collection Time Receive d Time (Source) Location / / Volume Laterality Blood specimen 07/07/2017 6:57 PM 017 6:57 (specimen) EST PM EST Daphne Shahid MD CHEMISTRY ORDERABLES Performing Organization Address City/State/[place] [address] (ABNORMAL) BLOOD GAS 2 ARTERIAL (07/07/2017 5:31 PM EST) P athologist Signature pH Art 7.29 7.35 - [facility] (Critical) 7.45 [facility] Comment: Noted by director instrumentation. pCO2 Art 48 (H) 35 - 45 [...] [facility] COHB Art 0.3 % [facility] [...] Bld 293 (H) 65 - 199 mg/dL [facility] Organization Address City/State/[place] [address] Fibrinogen (07/07/2017 5:30 PM EST) P athologist Signature Fibrinogen 224 180 - 510 [facility] mg/dL [facility] Comment: Called by: JEET, Read [...] Perez MD HEMATOLOGY ORDERABLES Performing Organization Address [facility] Phon e Number [address] APTT (07/07/2017 5:30 PM [...] Perez MD HEMATOLOGY ORDERABLES Performing Organization Address [facility] [place] [address] (ABNORMAL) Prothrombin Time (07/07/2017 [...] Perez MD HEMATOLOGY ORDERABLES Performing Organization Address [facility]/[place] [address] (ABNORMAL) Hemogram (07/07/2017 5:30 PM EST) athologist Signature WBC 19.6 (H) 4.0 - 9.5 [facility] x10(3)/[facility] LABORATORY RBC 3.08 (L) 4.58 - [facility] 5.54 [facility] x10(6)/[facility] LABORATORY Hemoglobin 9.2 (L) 13.7 - [facility] 16.5 gm/dL [facility] Hematocrit 28.0 (L) 40.5 - [facility] 48.5 % [facility] Comment: This result has been called to MONICA WEINSTEIN LUISA by DONALD GROSSMAN on 07 07 2017 at 1759, and has been read back. MCV 90.9 82.9 - 93.1 [facility] LABORATORY MCH 29.9 27.5 - 32.1 pg [facility] LABORATORY MCHC 32.9 32.0 - 35.7 gm/dL [facility] Platelets 155 145 - 357 x10(3)/[facility] LABORATORY RDWSD 46.5 (H) 36.0 - 45.0 [facility] LABORATORY RDWCV 14.1 (H) 11.4 - 13.8 % [facility] LABORATORY MPV 9.5 7.6 - 12.9 [facility] LABORATORY nRBC % Auto 0.0 % [facility] LABORATORY nRBC Abs Auto 0.000 0.000 - 0.000 x10(3)/[facility] LABORATORY Specimen Anatomical Collection Method Collection Time Receive d Time (Source) Location / / Volume Laterality Blood specimen 07/07/2017 5:30 PM 017 5:34 (specimen) EST PM EST Resulting Agency Comment Spec In Lab Yifan Perez MD HEMATOLOGY ORDERABLES Performing Organization Address City/State/[place] [address] Prepare Platelets, Apheresis (07/07/2017 5:00 PM EST) P athologist Signature Dispensed? Yes [facility] LABORATORY Specimen Anatomical Collection Method Collection Time Receive d Time (Source) Location / / Volume Laterality Blood specimen 07/07/2017 5:00 PM 017 4:58 (specimen) EST PM EST Daphne Shahid MD BLOOD BANK ORDERABLES Performing Organization Address City/State/[place] [address] Platelet count (07/07/2017 4:55 PM EST) athologist Signature Platelets 177 145 - 357 [facility] x10(3)/[facility] LABORATORY Plat Immature 1.5 0.0 - 7.4 [facility] % % [facility] Comment: Limitation of the Immature Platelet Frac tion (IPF)-May be less reliable when the platelet count is less than 34w057/u L due to statistical imprecision. The IPF [...] in a decreased state of production. References: [employer] The Clinical Value of the Immature Platelet Fraction (IPF) in Cell Recovery Document Number 10-1143 12/2010 [employer] The Role of the Imm ature [...] City/[facility]/[place] [address] (ABNORMAL) Hemoglobin and Hematocrit, blood (07/07/2017 4:55 PM EST) P athologist Signature Hemoglobin 9.1 (L) 13.7 - 16.5 [facility] gm/dL [facility] Comment: This result has been [...] City/[facility]/[place] [address] (ABNORMAL) BLOOD GAS 2 ARTERIAL (07/07/2017 4:38 PM EST) Analysis Performed At Patho logist Time Signature pH Art 7.37 7.35 - [facility] 7.45 [facility] pCO2 Art 44 35 - 45 [facility] mmHg [facility] pO2 Art 322 (H) 85 - 104 [facility] mmHg [facility] HCO3 Art 24.9 20.0 - [facility] 26.0 [facility] mmol/L [facility] LABORATORY BE Art -0.4 -3.0 - 3.0 [facility] mmol/L [facility] Hgb Blood Gas 10.1 (L) 13.7 - [facility] 16.5 gm/dL [facility] O2HB Art 98.7 (H) 94.0 - [facility] 97.0 % [facility] COHB Art 0.1 % [facility] Comment: Noted by director instrumentation. Note: ??Total bilirubin higher than 20 m g/dL may lead to falsely low ionized calcium. CL Whole Blood 101 98 - 107 mmol/L [facility] LABOR[facility]ORY Gluc Whole Bld 295 (H) 65 - 199 mg/dL [facility] Organization Address City/State/[place] [address] (ABNORMAL) BLOOD GAS 2 VENOUS (07/07/2017 4:06 PM EST) Analysis Performed At Patho logist Time Signature pH Cody 7.31 (L) 7.32 - [facility] 7.42 [facility] pCO2 Cody 47 41 - 51 [facility] LABORATORY pO2 Cody 53 (H) 25 - 40 [facility] LABORATORY HCO3 Cody 22.7 mmol/L [facility] BE Cody -3.7 mmol/L [facility] Hgb Blood Gas 10.2 (L) 13.7 - [facility] 16.5 gm/dL [facility] O2HB Cody 81.0 % [facility] Comment: Noted by director instrumentation. Note: ??Total bilirubin higher than 20 m g/dL may lead to falsely low ionized calcium. CL Whole Blood 100 98 - 107 mmol/L [facility] Gluc Whole Bld 231 (H) 65 - 199 mg/dL [facility] Comment: Diabetes: >=200 mg/dL plus symp toms Lactate WB 1.1 0.5 - 2.2 mmol/L [facility] BGas Source Venous [facility] Specimen Anatomical Collection Method Collection Time Receive d Time (Source) Location / / Volume Laterality Blood specimen 07/07/2017 4:06 PM 017 4:06 (specimen) EST PM EST Daphne Shahid MD CHEMISTRY ORDERABLES Performing Organization Address City/State/[place] [address] (ABNORMAL) BLOOD GAS 2 ARTERIAL (07/07/2017 4:05 PM EST) Analysis Performed At Patho logist Time Signature pH Art 7.36 7.35 - [facility] 7.45 [facility] pCO2 Art 40 35 - 45 [facility] LABORATORY pO2 Art 282 (H) 85 - 104 [facility] LABORATORY HCO3 Art 22.1 20.0 - [facility] 26.0 [facility] mmol/L [facility] LABORATORY BE Art -3.4 (L) -3.0 - 3.0 [facility] mmol/L [facility] Hgb Blood Gas 10.2 (L) 13.7 - [facility] 16.5 gm/dL [facility] O2HB Art 98.4 (H) 94.0 - [facility] 97.0 % [facility] COHB Art 0.3 % [facility] Comment: Noted by director instrumentation. Note: ??Total bilirubin higher than 20 m g/dL may lead to falsely low ionized calcium. CL Whole Blood 101 98 - 107 mmol/L [facility] Gluc Whole Bld 260 (H) 65 - 199 mg/dL [facility] [...] Organization Address City/State/[place] [address] (ABNORMAL) BLOOD GAS 2 ARTERIAL (07/07/2017 2:29 PM EST) Analysis Performed At Patho logist Time Signature pH Art 7.43 7.35 - [facility] 7.45 [facility] pCO2 Art 36 35 - 45 [facility] LABORATORY pO2 Art 221 (H) 85 - 104 [facility] LABORATORY HCO3 Art 23.2 20.0 - [facility] 26.0 [facility] mmol/L [facility] LABORATORY BE Art -1.2 -3.0 - 3.0 [facility] mmol/L [facility] Hgb Blood Gas 13.9 13.7 - [facility] 16.5 gm/dL [facility] O2HB Art 97.8 (H) 94.0 - [facility] 97.0 % [facility] COHB Art 1.1 % [facility] [...] Whole Bld 184 65 - 199 mg/dL [facility] [...] Organization Address City/State/[place] [address] Prepare Coag Factors (Non-Hemophilia) (07/07/2017 1:25 PM EST) P athologist Signature Dispensed? Yes [facility] Specimen Anatomical Collection Method Collection Time Receive d Time (Source) Location / / Volume Laterality Blood specimen 07/07/2017 1:25 PM 017 1:21 (specimen) EST PM EST Daphne Shahid MD BLOOD BANK ORDERABLES Performing Organization Address City/State/ZIP Code Phon e Number [address] Prepare RBC (07/07/2017 1:10 PM EST) athologist Signature Dispensed? Yes [facility] Specimen Anatomical Collection Method Collection Time Receive d Time (Source) Location / / Volume Laterality Blood specimen 07/07/2017 1:10 PM 017 1:05 (specimen) EST PM EST Daphne Shahid MD BLOOD BANK ORDERABLES Performing Organization Address City/State/[place] [address] POCT Glucose (07/07/2017 11:56 AM EST) athologist Signature POC Glucose 188 65 - 199 [facility] mg/dL [facility] Comment: Supplemental ranges: <140 mg/dL before meals <180 mg/dL all other times of the day Specimen Anatomical Collection Method Collection Time Receive d Time (Source) Location / / Volume Laterality Blood specimen 07/07/2017 11:56 7 (specimen) AM EST 11:56 AM EST Daphne Shahid MD POINT OF CARE TEST ORDERABLE S Performing Organization Address City/State/[place] [address] POCT Glucose (07/07/2017 11:05 AM EST) athologist Signature POC Glucose 168 65 - 199 [facility] Comment: Supplemental ranges: <140 mg/dL before meals <180 mg/dL all other times of the day Specimen Anatomical Collection Method Collection Time Receive d Time (Source) Location / / Volume Laterality Blood specimen 07/07/2017 11:05 7 (specimen) AM EST 11:05 AM EST Daphne Shahid MD POINT OF CARE TEST ORDERABLE S Performing Organization Address City/State/[place] [address] POCT Glucose (07/07/2017 10:02 AM EST) P athologist Signature POC Glucose 191 65 - 199 [facility] mg/dL [facility] Comment: Supplemental ranges: <140 mg/dL before meals <180 mg/dL all other times of the day Specimen Anatomical Collection Method Collection Time Receive d Time (Source) Location / / Volume Laterality Blood specimen 07/07/2017 10:02 7 (specimen) AM EST 10:02 AM EST Daphne Shahid MD POINT OF CARE TEST ORDERABLE S Performing Organization Address City/State/[place] [address] POCT Glucose (07/07/2017 7:53 AM EST) athologist Signature POC Glucose 178 65 - 199 [facility] mg/dL [facility] Comment: Supplemental ranges: <140 mg/dL before meals <180 mg/dL all other times of the day Specimen Anatomical Collection Method Collection Time Receive d Time (Source) Location / / Volume Laterality Blood specimen 07/07/2017 7:53 AM 017 7:53 (specimen) EST AM EST Daphne Shahid MD POINT OF CARE TEST ORDERABLE S Performing Organization Address City/State/ZIP Code Phon e Number [address] POCT Glucose (07/07/2017 7:03 AM EST) athologist Signature POC Glucose 188 65 - 199 [facility] mg/dL [facility] Comment: Supplemental ranges: <140 mg/dL before meals <180 mg/dL all other times of the day Specimen Anatomical Collection Method Collection Time Receive d Time (Source) Location / / Volume Laterality Blood specimen 07/07/2017 7:03 AM 017 7:03 (specimen) EST AM EST Daphne Shahid MD POINT OF CARE TEST ORDERABLE S Performing Organization Address City/State/[place] [address] (ABNORMAL) POCT Glucose (07/07/2017 6:17 AM EST) athologist Signature POC Glucose 207 (H) 65 - 199 [facility] mg/dL [facility] Comment: Supplemental ranges: <140 mg/dL before meals <180 mg/dL all other times of the day Specimen Anatomical Collection Method Collection Time Receive d Time (Source) Location / / Volume Laterality Blood specimen 07/07/2017 6:17 AM 017 6:17 (specimen) EST AM EST Daphne Shahid MD POINT OF CARE TEST ORDERABLE S Performing Organization Address City/[facility]/ZIP Code Phon e Number [address] Differential, Automated (07/07/2017 5:15 AM EST) athologist Signature Neutrophils % 69.7 % [facility]ORATORY Neutr Abs (ANC) 5.32 1.70 - [facility] 6.10 [facility] x10(3)/[facility] LABORATORY Lymphocytes % 16.3 % [facility] Lymphocytes Abs 1.2 0.9 - 3.2 [facility] x10(3)/[facility] LABORATORY Monocytes % 10.5 % [facility] Monocyte Abs 0.8 0.3 - 0.9 [facility] x10(3)/[facility] LABORATORY Eosinophils % 2.5 % [facility] Eosinophils Abs 0.2 0.0 - 0.4 [facility] x10(3)/[facility] LABORATORY Basophils % 0.7 % [facility] Basophils Abs 0.0 0.0 - 0.1 [facility] x10(3)/[facility] LABORATORY Immature Gran % [...] Melisa Gran Abs 0.02 0.00 - 0.04 x10(3)/[facility] MAR Y [facility] LABORATORY Specimen Anatomical Collection Method Collection Time Receive d Time (Source) Location / / Volume Laterality Blood specimen 07/07/2017 5:15 AM 017 5:34 (specimen) EST AM EST Resulting Agency Comment Spec In Lab Daphne Shahid MD HEMATOLOGY ORDERABLES Performing Organization Address City/State/[place] [address] (ABNORMAL) Hemogram (07/07/2017 5:15 AM EST) Analysis Performed At Patho logist Time Signature WBC 7.6 4.0 - 9.5 [facility] x10(3)/[facility] LABORATORY RBC 4.82 4.58 - [facility] 5.54 [facility] x10(6)/[facility] Hemoglobin 14.4 13.7 - [facility] 16.5 gm/dL [facility] Hematocrit 42.1 40.5 - [facility] 48.5 % [facility] MCV 87.3 82.9 - [facility] 93.1 [facility] LABORATORY MCH 29.9 27.5 - [facility] 32.1 pg [facility] MCHC 34.2 32.0 - [facility] 35.7 gm/dL [facility] Platelets 188 145 - 357 [facility] x10(3)/[facility] LABORATORY RDWSD 45.1 (H) 36.0 - [facility] 45.0 [facility] LABORATORY RDWCV 14.3 (H) 11.4 - [facility] 13.8 % [facility] LAB[facility]AT[facility] MPV 9.4 7.6 - 12.9 [facility] LABORATORY nRBC % Auto 0.0 % [facility] nRBC Abs Auto 0.000 0.000 - [facility] 0.000 [facility] x10(3)/[facility] LABORATORY Specimen Anatomical Collection Method Collection Time Receive d Time (Source) Location / / Volume Laterality Blood specimen 07/07/2017 5:15 AM 017 5:34 (specimen) EST AM EST Resulting Agency Comment Spec In Lab Daphne Shahid MD HEMATOLOGY ORDERABLES Performing Organization Address City/[facility]/[place] [address] (ABNORMAL) APTT (07/07/2017 5:15 [...] City/[facility]/[place] [address] Magnesium (07/07/2017 5:15 AM EST) athologist Signature Magnesium 0.94 0.69 - 1.07 [facility] mmol/L [facility] Specimen Anatomical Collection Method Collection Time Receive d Time (Source) Location / / Volume Laterality Blood specimen 07/07/2017 5:15 AM 017 5:34 (specimen) EST AM EST Resulting Agency Comment Spec In Lab Daphne Shahid MD CHEMISTRY ORDERABLES Performing Organization Address City/[facility]/[place] [address] (ABNORMAL) Basic Metabolic Panel (non-fasting) (07/07/2017 5:15 AM EST) athologist Signature Glucose Lvl 203 (H) 65 - 199 [facility] mg/dL [facility] Comment: [...] in patients with acute kidney failure. http://[employer]/DHnkdep http://[employer]/DHMCnkf Specimen Anatomical Collection Method Collection Time Receive d Time (Source) Location / / Volume Laterality Blood specimen 07/07/2017 5:15 AM 017 5:34 (specimen) EST AM EST Resulting Agency Comment Spec In Lab Daphne Shahid MD CHEMISTRY ORDERABLES Performing Organization Address City/State/[place] [address] (ABNORMAL) Cardiac Enzymes (LEB/CGP) (07/07/2017 5:15 AM EST) athologist Signature Troponin-T 2.07 (H) 0.00 - [facility] 0.00 ng/mL [facility] Comment: The 99th percentile for [...] additional sample may be indicated. Reference: Third [place] Definition of Myocardial Infarction. Journal of the [employer] College [employer] 2012;60:1581-98 CK, Total 88 0 - 200 unit/L [facility]ORY Specimen Anatomical Collection Method Collection Time Receive d Time (Source) Location / / Volume Laterality Blood specimen 07/07/2017 5:15 AM 017 5:34 (specimen) EST AM EST Resulting Agency Comment Spec In Lab Daphne Shahid MD CHEMISTRY ORDERABLES Performing Organization Address City/State/[place] [address] POCT Glucose (07/07/2017 5:01 AM EST) P athologist Signature POC Glucose 182 65 - 199 [facility] mg/dL [facility] Comment: Supplemental ranges: <140 mg/dL before meals <180 mg/dL all other times of the day Specimen Anatomical Collection Method Collection Time Receive d Time (Source) Location / / Volume Laterality Blood specimen 07/07/2017 5:01 AM 017 5:01 (specimen) EST AM EST Daphne Shahid MD POINT OF CARE TEST ORDERABLE S Performing Organization Address City/State/ZIP Code Phon e Number [address] POCT Glucose (07/07/2017 4:08 AM EST) P athologist Signature POC Glucose 199 65 - 199 [facility] mg/dL [facility] Comment: Supplemental ranges: <140 mg/dL before meals <180 mg/dL all other times of the day Specimen Anatomical Collection Method Collection Time Receive d Time (Source) Location / / Volume Laterality Blood specimen 07/07/2017 4:08 AM 017 4:08 (specimen) EST AM EST Daphne Shahid MD POINT OF CARE TEST ORDERABLE S Performing Organization Address City/[facility]/ZIP Code Phon e Number [address] POCT Glucose (07/07/2017 3:03 AM EST) athologist Signature POC Glucose 188 65 - 199 [facility] mg/dL [facility] Comment: Supplemental ranges: <140 mg/dL before meals <180 mg/dL all other times of the day Specimen Anatomical Collection Method Collection Time Receive d Time (Source) Location / / Volume Laterality Blood specimen 07/07/2017 3:03 AM 017 3:03 (specimen) EST AM EST Daphne Shahid MD POINT OF CARE TEST ORDERABLE S Performing Organization Address City/State/[place] [address] (ABNORMAL) POCT Glucose (07/07/2017 2:08 AM EST) athologist Signature POC Glucose 200 (H) 65 - 199 [facility] mg/dL [facility] Comment: Supplemental ranges: <140 mg/dL before meals <180 mg/dL all other times of the day Specimen Anatomical Collection Method Collection Time Receive d Time (Source) Location / / Volume Laterality Blood specimen 07/07/2017 2:08 AM 017 2:08 (specimen) EST AM EST Daphne Shahid MD POINT OF CARE TEST ORDERABLE S Performing Organization Address City/State/[place] [address] (ABNORMAL) POCT Glucose (07/07/2017 1:31 AM EST) P athologist Signature POC Glucose 209 (H) 65 - 199 [facility] mg/dL [facility] Comment: Supplemental ranges: <140 mg/dL before meals <180 mg/dL all other times of the day Specimen Anatomical Collection Method Collection Time Receive d Time (Source) Location / / Volume Laterality Blood specimen 07/07/2017 1:31 AM 017 1:31 (specimen) EST AM EST Daphne Shahid MD POINT OF CARE TEST ORDERABLE S Performing Organization Address City/State/[place] [address] XR Chest PA or [...] Glucose 161 65 - 199 [facility] mg/dL [facility] Comment: Supplemental ranges: <140 mg/dL before meals <180 mg/dL all other times of the day Specimen Anatomical Collection Method Collection Time Receive d Time (Source) Location / / Volume Laterality Blood specimen 07/07/2017 12:07 7 (specimen) AM EST 12:07 AM EST Daphne Shahid MD POINT OF CARE TEST ORDERABLE S Performing Organization Address City/[facility]/ZIP Code Phon e Number [address] (ABNORMAL) APTT (07/07/2017 12:00 AM EST) athologist [facility] PTT 103 (H) 25 - 35 sec [...] Organization Address City/State/[place] [address] POCT Glucose (07/06/2017 9:55 PM EST) athologist Signature POC Glucose 109 65 - 199 [facility] mg/dL [facility] Comment: Supplemental ranges: <140 mg/dL before meals <180 mg/dL all other times of the day Specimen Anatomical Collection Method Collection Time Receive d Time (Source) Location / / Volume Laterality Blood specimen 07/06/2017 9:55 PM 017 9:55 (specimen) EST PM EST Daphne Shahid MD POINT OF CARE TEST ORDERABLE S Performing Organization Address City/State/ZIP Code Phon e Number [address] POCT Glucose (07/06/2017 9:04 PM EST) athologist Signature POC Glucose 120 65 - 199 [facility] mg/dL [facility] Comment: Supplemental ranges: <140 mg/dL before meals <180 mg/dL all other times of the day Specimen Anatomical Collection Method Collection Time Receive d Time (Source) Location / / Volume Laterality Blood specimen 07/06/2017 9:04 PM 017 9:04 (specimen) EST PM EST Daphne Shahid MD POINT OF CARE TEST ORDERABLE S Performing Organization Address City/State/[place] [address] POCT Glucose (07/06/2017 7:45 PM EST) athologist Signature POC Glucose 158 65 - 199 [facility] mg/dL [facility] Comment: Supplemental ranges: <140 mg/dL before meals <180 mg/dL all other times of the day Specimen Anatomical Collection Method Collection Time Receive d Time (Source) Location / / Volume Laterality Blood specimen 07/06/2017 7:45 PM 017 7:45 (specimen) EST PM EST Daphne Shahid MD POINT OF CARE TEST ORDERABLE S Performing Organization Address City/[facility]/[place] [address] Potassium (07/06/2017 7:40 PM EST) athologist Signature Potassium 3.9 3.5 - 5.0 [facility] mmol/L [facility] Comment: Please note: ??Patients with [...] Organization Address City/State/[place] [address] (ABNORMAL) Cardiac Enzymes (LEB/CGP) (07/06/2017 7:40 PM EST) athologist Signature Troponin-T 2.27 (H) 0.00 - [place] 0.00 ng/mL [facility] Comment: The 99th percentile for [...] additional sample may be indicated. Reference: Third [place] Definition of Myocardial Infarction. Journal of the [employer] College [employer] 2012;60:1581-98 CK, Total 93 0 - 200 unit/L [facility] LAB[facility] Specimen Anatomical Collection Method Collection Time Receive d Time (Source) Location / / Volume Laterality Blood specimen 07/06/2017 7:40 PM 017 7:52 (specimen) EST PM EST Resulting Agency Comment Spec In Lab Daphne Shahid MD CHEMISTRY ORDERABLES Performing Organization Address City/State/[place] [address] (ABNORMAL) POCT Glucose (07/06/2017 7:13 PM EST) P athologist Signature POC Glucose 200 (H) 65 - 199 [facility] mg/dL [facility] Comment: Supplemental ranges: <140 mg/dL before meals <180 mg/dL all other times of the day Specimen Anatomical Collection Method Collection Time Receive d Time (Source) Location / / Volume Laterality Blood specimen 07/06/2017 7:13 PM 017 7:13 (specimen) EST PM EST Daphne Shahid MD POINT OF CARE TEST ORDERABLE S Performing Organization Address City/State/ZIP Code Phon e Number [address] (ABNORMAL) APTT (07/06/2017 6:15 PM EST) athologist [facility] PTT 94 (H) 25 - 35 sec [...] Organization Address City/State/[place] [address] (ABNORMAL) POCT Glucose (07/06/2017 6:03 PM EST) athologist Signature POC Glucose 236 (H) 65 - 199 [facility] mg/dL [facility] Comment: Supplemental ranges: <140 mg/dL before meals <180 mg/dL all other times of the day Specimen Anatomical Collection Method Collection Time Receive d Time (Source) Location / / Volume Laterality Blood specimen 07/06/2017 6:03 PM 017 6:03 (specimen) EST PM EST Daphne Shahid MD POINT OF CARE TEST ORDERABLE S Performing Organization Address City/State/[place] [address] (ABNORMAL) POCT Glucose (07/06/2017 5:01 PM EST) P athologist Signature POC Glucose 235 (H) 65 - 199 [place] mg/dL [facility] Comment: Supplemental ranges: <140 mg/dL before meals <180 mg/dL all other times of the day Specimen Anatomical Collection Method Collection Time Receive d Time (Source) Location / / Volume Laterality Blood specimen 07/06/2017 5:01 PM 017 5:01 (specimen) EST PM EST Daphne Shahid MD POINT OF CARE TEST ORDERABLE S Performing Organization Address City/[facility]/[place] [address] (ABNORMAL) POCT Glucose (07/06/2017 4:06 PM EST) athologist Signature POC Glucose 202 (H) 65 - 199 [place] mg/dL [facility] Comment: Supplemental ranges: <140 mg/dL before meals <180 mg/dL all other times of the day Specimen Anatomical Collection Method Collection Time Receive d Time (Source) Location / / Volume Laterality Blood specimen 07/06/2017 4:06 PM 017 4:06 (specimen) EST PM EST Daphne Shahid MD POINT OF CARE TEST ORDERABLE S Performing Organization Address City/State/[place] [address] POCT Glucose (07/06/2017 2:59 PM EST) P athologist Signature POC Glucose 178 65 - 199 [place] mg/dL [facility] Comment: Supplemental ranges: <140 mg/dL before meals <180 mg/dL all other times of the day Specimen Anatomical Collection Method Collection Time Receive d Time (Source) Location / / Volume Laterality Blood specimen 07/06/2017 2:59 PM 017 2:59 (specimen) EST PM EST Daphne Shahid MD POINT OF CARE TEST ORDERABLE S Performing Organization Address City/[facility]/[place] [address] (ABNORMAL) Cardiac Enzymes (LEB/CGP) (07/06/2017 2:10 PM EST) P athologist Signature Troponin-T 2.34 (H) 0.00 - [facility] 0.00 ng/mL [facility] Comment: The 99th percentile for [...] additional sample may be indicated. Reference: Third [place] Definition of Myocardial Infarction. Journal of the [employer] College [employer]iology 2012;60:1581-98 CK, Total 101 0 - 200 unit/L [facility] Specimen Anatomical Collection Method Collection Time Receive d Time (Source) Location / / Volume Laterality Blood specimen 07/06/2017 2:10 PM 017 2:26 (specimen) EST PM EST Resulting Agency Comment Spec In Lab Daphne Shahid MD CHEMISTRY ORDERABLES Performing Organization Address City/[facility]/[place] [address] POCT Glucose (07/06/2017 2:08 PM EST) P athologist Signature POC Glucose 192 65 - 199 [place] mg/dL [facility] Comment: Supplemental ranges: <140 mg/dL before meals <180 mg/dL all other times of the day Specimen Anatomical Collection Method Collection Time Receive d Time (Source) Location / / Volume Laterality Blood specimen 07/06/2017 2:08 PM 017 2:08 (specimen) EST PM EST Daphne Shahid MD POINT OF CARE TEST ORDERABLE S Performing Organization Address City/State/ZIP Code Phon e Number [address] POCT Glucose (07/06/2017 1:04 PM EST) athologist Signature POC Glucose 162 65 - 199 [facility]dL [facility] Comment: Supplemental ranges: <140 mg/dL before meals <180 mg/dL all other times of the day Specimen Anatomical Collection Method Collection Time Receive d Time (Source) Location / / Volume Laterality Blood specimen 07/06/2017 1:04 PM 017 1:04 (specimen) EST PM EST Daphne Shahid MD POINT OF CARE TEST ORDERABLE S Performing Organization Address City/State/ZIP Code Phon e Number [address] POCT Glucose (07/06/2017 12:05 PM EST) athologist Signature POC Glucose 196 65 - 199 [facility] mg/dL [facility] Comment: Supplemental ranges: <140 mg/dL before meals <180 mg/dL all other times of the day Specimen Anatomical Collection Method Collection Time Receive d Time (Source) Location / / Volume Laterality Blood specimen 07/06/2017 12:05 7 (specimen) PM EST 12:05 PM EST Daphne Shahid MD POINT OF CARE TEST ORDERABLE S Performing Organization Address City/State/ZIP Code Phon e Number [address] EKG 12 Lead (07/06/2017 12:00 PM EST) Component Value Ref Range Test Analysis Performed Pathologis t Method Time At Signature Ventricular rate 91 BPM MUSE SYSTEM Atrial Rate 91 BPM MUSE SYSTEM P-R Interval 140 ms MUSE SYSTEM QRS Duration 94 ms MUSE SYSTEM Q-T Interval 394 ms MUSE SYSTEM QTC Calculated 484 ms MUSE SYSTEM (Bezet) Calculated P [place] 36 degrees MUSE SYSTEM Calculated R [place] -19 degrees MUSE SYSTEM Calculated T [place] 104 degrees MUSE SYSTEM INTERPRETATION Normal sinus rhythm MUSE SYSTEM 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) ST & T wave abnormality, consider lateral ischemia Abnormal ECG When compared with ECG of 05-JUL-2017 20:39, No significant change was found Confirmed by MD Luci, Taurus Braun ([id number]) on 07/06/2017 5:07:33 PM Specimen Anatomical Collection Method Collection Time Receive d Time (Source) Location / / Volume Laterality 07/06/2017 12:00 07/06/2017 5:07 PM EST PM EST Daphne Shahid MD ECG ORDERABLES Performing Organization Address City/[facility]/ZIP Code Phon e Number MUSE SYSTEM ABORH Recheck Status (07/06/2017 12:00 PM EST) [facility] Method Time Signature ABORH Type Completed [facility] LABORATORY Specimen Anatomical Collection Method Collection Time Receive d Time (Source) Location / / Volume Laterality Blood specimen 07/06/2017 12:00 7 (specimen) PM EST 12:24 PM EST Resulting Agency Comment Spec In Lab Daphne Shahid MD BLOOD BANK ORDERABLES Performing Organization Address City/[facility]/[place] [address] Antibody screen (07/06/2017 12:00 PM EST) [facility] HipLink Method Time Signature Ab Screen Negative [facility] LABORATORY Expires at 07/09/2017 [facility] [id number] on: [facility] Specimen Anatomical Collection Method Collection Time Receive d Time (Source) Location / / Volume Laterality Blood specimen 07/06/2017 12:00 7 (specimen) PM EST 12:24 PM EST Resulting Agency Comment Spec In Lab Daphne Shahid MD BLOOD BANK ORDERABLES Performing Organization Address City/[facility]/ZIP Code Phon e Number [address] ABO/Rh Typing (07/06/2017 12:00 [...] Organization Address City/State/[place] [address] Prothrombin Time (07/06/2017 11:24 [...] City/[facility]/ZIP Code Phon e Number [place] [phone] (ABNORMAL) APTT (07/06/2017 11:24 [...] Address City/State/ZIP Code Phon e Number [address] POCT Glucose (07/06/2017 11:02 AM EST) athologist Signature POC Glucose 187 65 - 199 [place] mg/dL [facility] Comment: Supplemental ranges: <140 mg/dL before meals <180 mg/dL all other times of the day Specimen Anatomical Collection Method Collection Time Receive d Time (Source) Location / / Volume Laterality Blood specimen 07/06/2017 11:02 7 (specimen) AM EST 11:02 AM EST Daphne Shahid MD POINT OF CARE TEST ORDERABLE S Performing Organization Address City/State/[place] [address] POCT Glucose (07/06/2017 10:18 AM EST) athologist Signature POC Glucose 193 65 - 199 [place] mg/dL [facility] Comment: Supplemental ranges: <140 mg/dL before meals <180 mg/dL all other times of the day Specimen Anatomical Collection Method Collection Time Receive d Time (Source) Location / / Volume Laterality Blood specimen 07/06/2017 10:18 7 (specimen) AM EST 10:18 AM EST Daphne Shahid MD POINT OF CARE TEST ORDERABLE S Performing Organization Address City/State/[place] [address] POCT Glucose (07/06/2017 9:25 AM EST) athologist Signature POC Glucose 182 65 - 199 [place] mg/dL [facility] Comment: Supplemental ranges: <140 mg/dL before meals <180 mg/dL all other times of the day Specimen Anatomical Collection Method Collection Time Receive d Time (Source) Location / / Volume Laterality Blood specimen 07/06/2017 9:25 AM 017 9:25 (specimen) EST AM EST Daphne Shahid MD POINT OF CARE TEST ORDERABLE S Performing Organization Address City/[facility]/[place] [address] (ABNORMAL) Cardiac Enzymes (LEB/CGP) (07/06/2017 8:10 AM EST) athologist Signature Troponin-T 2.26 (H) 0.00 - [place] 0.00 ng/mL [facility] Comment: The 99th percentile for [...] additional sample may be indicated. Reference: Third [place] Definition of Myocardial Infarction. Journal of the [employer] College [employer] 2012;60:1581-98 CK, Total 124 0 - 200 unit/L [facility] Specimen Anatomical Collection Method Collection Time Receive d Time (Source) Location / / Volume Laterality Blood specimen 07/06/2017 8:10 AM 017 8:23 (specimen) EST AM EST Resulting Agency Comment Spec In Lab Daphne Shahid MD CHEMISTRY ORDERABLES Performing Organization Address City/State/ZIP Code Phon e Number [place] Magnesium (07/06/2017 8:10 AM EST) athologist Signature Magnesium 0.84 0.69 - 1.07 [facility] mmol/L [facility] Specimen Anatomical Collection Method Collection Time Receive d Time (Source) Location / / Volume Laterality Blood specimen 07/06/2017 8:10 AM 017 8:21 (specimen) EST AM EST Resulting Agency Comment Spec In Lab Daphne Shahid MD CHEMISTRY ORDERABLES Performing Organization Address City/State/ZIP Code Phon e Number [address] (ABNORMAL) Basic Metabolic Panel (non-fasting) (07/06/2017 8:10 AM EST) athologist Signature Glucose Lvl 199 65 - 199 [facility] mg/dL [facility] Comment: [...] in patients with acute kidney failure. http://[employer]/DHnkdep [email or web address]://[employer]/DHMCnkf Specimen Anatomical Collection Method Collection Time Receive d Time (Source) Location / / Volume Laterality Blood specimen 07/06/2017 8:10 AM 017 8:21 (specimen) EST AM EST Resulting Agency Comment Spec In Lab Daphne Shahid MD CHEMISTRY ORDERABLES Performing Organization Address City/[facility]/ZIP Code Phon e Number [address] POCT Glucose (07/06/2017 7:34 AM EST) athologist Signature POC Glucose 198 65 - 199 [facility] mg/dL [facility] Comment: Supplemental ranges: <140 mg/dL before meals <180 mg/dL all other times of the day Specimen Anatomical Collection Method Collection Time Receive d Time (Source) Location / / Volume Laterality Blood specimen 07/06/2017 7:34 AM 017 7:34 (specimen) EST AM EST Daphne Shahid MD POINT OF CARE TEST ORDERABLE S Performing Organization Address City/[facility]/ZIP Code Phon e Number [address] POCT Glucose (07/06/2017 7:03 AM EST) athologist Signature POC Glucose 181 65 - 199 [facility] mg/dL [facility] Comment: Supplemental ranges: <140 mg/dL before meals <180 mg/dL all other times of the day Specimen Anatomical Collection Method Collection Time Receive d Time (Source) Location / / Volume Laterality Blood specimen 07/06/2017 7:03 AM 017 7:03 (specimen) EST AM EST Daphne Shahid MD POINT OF CARE TEST ORDERABLE S Performing Organization Address City/[facility]/ZIP Code Phon e Number [address] XR Chest PA [...] Glucose 172 65 - 199 [facility] mg/dL [facility] Comment: Supplemental ranges: <140 mg/dL before meals <180 mg/dL all other times of the day Specimen Anatomical Collection Method Collection Time Receive d Time (Source) Location / / Volume Laterality Blood specimen 07/06/2017 6:21 AM 017 6:21 (specimen) EST AM EST Daphne Shahid MD POINT OF CARE TEST ORDERABLE S Performing Organization Address City/State/ZIP Code Phon e Number [address] POCT Glucose (07/06/2017 5:08 AM EST) athologist Signature POC Glucose 154 65 - 199 [place] mg/dL [facility] Comment: Supplemental ranges: <140 mg/dL before meals <180 mg/dL all other times of the day Specimen Anatomical Collection Method Collection Time Receive d Time (Source) Location / / Volume Laterality Blood specimen 07/06/2017 5:08 AM 017 5:08 (specimen) EST AM EST Daphne Shahid MD POINT OF CARE TEST ORDERABLE S Performing Organization Address City/State/ZIP Code Phon e Number [address] POCT Glucose (07/06/2017 4:05 AM EST) athologist Signature POC Glucose 142 65 - 199 [place] mg/dL [facility] Comment: Supplemental ranges: <140 mg/dL before meals <180 mg/dL all other times of the day Specimen Anatomical Collection Method Collection Time Receive d Time (Source) Location / / Volume Laterality Blood specimen 07/06/2017 4:05 AM 017 4:05 (specimen) EST AM EST Daphne Shahid MD POINT OF CARE TEST ORDERABLE S Performing Organization Address City/State/[place] [address] POCT Glucose (07/06/2017 3:00 AM EST) athologist Signature POC Glucose 116 65 - 199 [facility] RYAN mg/dL [facility] Comment: Supplemental ranges: <140 mg/dL before meals <180 mg/dL all other times of the day Specimen Anatomical Collection Method Collection Time Receive d Time (Source) Location / / Volume Laterality Blood specimen 07/06/2017 3:00 AM 017 3:00 (specimen) EST AM EST Daphne Shahid MD POINT OF CARE TEST ORDERABLE S Performing Organization Address City/[facility]/[place] [address] [facility] [address] Potassium (07/06/2017 2:20 AM EST) athologist Signature Potassium 3.9 3.5 - 5.0 [facility]/L [facility] Comment: Please note: ??Patients with [...] City/[facility]/ZIP Code Phon e Number [address] Differential, Automated (07/06/2017 2:20 AM EST) athologist Signature Neutrophils % 72.9 % [facility] LABORATORY Neutr Abs (ANC) 5.53 1.70 - [facility] 6.10 [facility] x10(3)/[facility] LABORATORY Lymphocytes % 16.4 % [facility]ORY Lymphocytes Abs 1.2 0.9 - 3.2 [facility] x10(3)/[facility] LABORATORY Monocytes % 9.4 % [facility]ORY Monocyte Abs 0.7 0.3 - 0.9 [facility] x10(3)/[facility] LABORATORY Eosinophils % 0.5 % [facility]ORY Eosinophils Abs 0.0 0.0 - 0.4 [facility] x10(3)/[facility] LABORATORY Basophils % 0.4 % [facility] Basophils Abs 0.0 0.0 - 0.1 [facility] x10(3)/[facility] LABORATORY Immature Gran % [...] 0.04 x10(3)/[facility] MAR Y [facility] LABORATORY Specimen Anatomical Collection Method Collection Time Receive d Time (Source) Location / / Volume Laterality Blood specimen 07/06/2017 2:20 AM 017 2:33 (specimen) EST AM EST Resulting Agency Comment Spec In Lab Daphne Shahid MD HEMATOLOGY ORDERABLES Performing Organization Address City/State/[place] [address] (ABNORMAL) Hemogram (07/06/2017 2:20 AM EST) Analysis Performed At Patho logist Time Signature WBC 7.6 4.0 - 9.5 [facility] x10(3)/[facility] LABORATORY RBC 4.52 (L) 4.58 - [facility] 5.54 [facility] x10(6)/[facility] LABORATORY Hemoglobin 13.4 (L) 13.7 - [facility] 16.[facility] gm/dL [facility] Hematocrit 39.7 (L) 40.5 - [facility] 48.5 % [facility] MCV 87.8 82.9 - [facility] 93.1 [facility] LABORATORY MCH 29.6 27.5 - [facility] RYAN 32.1 pg [facility] MCHC 33.8 32.0 - [facility] 35.7 gm/dL [facility] Platelets 189 145 - 357 [facility] x10(3)/[facility] LABORATORY RDWSD 45.6 (H) 36.0 - [facility] 45.0 [facility] LABORATORY RDWCV 14.3 (H) 11.4 - [facility] RYAN 13.8 % [facility] LAB[facility]AT[facility] MPV 9.1 7.6 - 12.9 [facility] LABORATORY nRBC % Auto 0.0 % [facility] LABORATORY nRBC Abs Auto 0.000 0.000 - [place] 0.000 [facility] x10(3)/[facility] LABORATORY Specimen Anatomical Collection Method Collection Time Receive d Time (Source) Location / / Volume Laterality Blood specimen 07/06/2017 2:20 AM 017 2:33 (specimen) EST AM EST Resulting Agency Comment Spec In Lab Daphne Shahid MD HEMATOLOGY ORDERABLES Performing Organization Address City/State/ZIP Code Phon e Number [address] (ABNORMAL) APTT (07/06/2017 2:20 [...] City/[facility]/ZIP Code Phon e Number [address] POCT Glucose (07/06/2017 2:20 AM EST) P athologist Signature POC Glucose 115 65 - 199 [facility] mg/dL [facility] Comment: Supplemental ranges: <140 mg/dL before meals <180 mg/dL all other times of the day Specimen Anatomical Collection Method Collection Time Receive d Time (Source) Location / / Volume Laterality Blood specimen 07/06/2017 2:20 AM 017 2:20 (specimen) EST AM EST Daphne Shahid MD POINT OF CARE TEST ORDERABLE S Performing Organization Address City/State/[place] [address] (ABNORMAL) Cardiac Enzymes (LEB/CGP) (07/06/2017 2:20 AM EST) P athologist Signature Troponin-T 2.13 (H) 0.00 - [place] 0.00 ng/mL [facility] Comment: The 99th percentile for [...] additional sample may be indicated. Reference: Third [place] Definition of Myocardial Infarction. Journal of the [employer] 2012;60:1581-98 CK, Total 129 0 - 200 unit/L [facility] LABORATORY Specimen Anatomical Collection Method Collection Time Receive d Time (Source) Location / / Volume Laterality Blood specimen 07/06/2017 2:20 AM 017 2:33 (specimen) EST AM EST Resulting Agency Comment Spec In Lab Daphne Shahid MD CHEMISTRY ORDERABLES Performing Organization Address City/State/[place] [address] (ABNORMAL) Hemoglobin A1c (07/06/2017 2:20 AM EST) Analysis Performed At Patho logist Time Signature Hemoglobin A1C 6.8 (H) 4.3 - 5.6 [facility] % [facility] Comment: Reference Range: 4.3 - [...] [id number] Est Avg Gluc See note mg/dL [place] [...] with hemoglobinopathies. Additional resources are available on [facility] ADA website. Macario HAMMOND, Ruthann J, Deysi R, et al. ??Tr anslating the A1C assay into estimated average glucose values. ??Diabetes Care 2008:31(8):9641-5839. Specimen Anatomical Collection Method Collection Time Receive d Time (Source) Location / / Volume Laterality Blood specimen 07/06/2017 2:20 AM 017 2:34 (specimen) EST AM EST Resulting Agency Comment Spec In Lab Daphne Shahid MD CHEMISTRY ORDERABLES Performing Organization Address City/State/[place] [address] (ABNORMAL) Lipid Panel (07/06/2017 2:20 AM EST) Patholo gist Method Time Signature Chol, Total 150 <=239 [place] mg/dL [facility] LABORATORY Triglycerides 129 <=199 [facility] mg/dL [facility] LABORATORY HDL 32 (L) >=40 [place] mg/dL [facility] LABORATORY LDL Cholesterol 92 <=190 [facility] mg/dL [facility] LABORATORY Chol/HDL Ratio 4.7 ratio [facility]ORY Lipid See Note [place] Interpretation [facility] LABORATORY Comment: Lipid management should be guided by a p atient? s ASCVD risk, goals and preferences. ACC/AHA Guidelines recommend high intens ity statin if clinical ASCVD or LDL greater than or equal to 190 mg/dL. http://[employer] Technology/ONX-EQL-Wtwdufouj Adults aged 40-75 with LDL 70-189 mg/dL should have their 10 year ASCVD risk estimated with the ACC/AHA ASCVD risk es timator http://tools.acc.org/XQBON-Wawn-Oyiolops r/ Statin should be discussed if risk [...] Organization Address City/State/[place] [address] POCT Glucose (07/06/2017 1:09 AM EST) P athologist Signature POC Glucose 121 65 - 199 [facility] mg/dL [facility] Comment: Supplemental ranges: <140 mg/dL before meals <180 mg/dL all other times of the day Specimen Anatomical Collection Method Collection Time Receive d Time (Source) Location / / Volume Laterality Blood specimen 07/06/2017 1:09 AM 017 1:09 (specimen) EST AM EST Daphne Shahid MD POINT OF CARE TEST ORDERABLE S Performing Organization Address City/State/[place] [address] POCT Glucose (07/06/2017 12:06 AM EST) P athologist Signature POC Glucose 147 65 - 199 [place] mg/dL [facility] Comment: Supplemental ranges: <140 mg/dL before meals <180 mg/dL all other times of the day Specimen Anatomical Collection Method Collection Time Receive d Time (Source) Location / / Volume Laterality Blood specimen 07/06/2017 12:06 7 (specimen) AM EST 12:06 AM EST Daphne Shahid MD POINT OF CARE TEST ORDERABLE S Performing Organization Address City/State/[place] [address] (ABNORMAL) POCT Glucose (07/05/2017 10:56 PM EST) P athologist Signature POC Glucose 200 (H) 65 - 199 [place] mg/dL [facility] Comment: Supplemental ranges: <140 mg/dL before meals <180 mg/dL all other times of the day Specimen Anatomical Collection Method Collection Time Receive d Time (Source) Location / / Volume Laterality Blood specimen 07/05/2017 10:56 7 (specimen) PM EST 10:56 PM EST Daphne Shahid MD POINT OF CARE TEST ORDERABLE S Performing Organization Address City/State/[place] [address] (ABNORMAL) POCT Glucose (07/05/2017 10:05 PM EST) P athologist Signature POC Glucose 225 (H) 65 - 199 [place] mg/dL [facility] Comment: Supplemental ranges: <140 mg/dL before meals <180 mg/dL all other times of the day Specimen Anatomical Collection Method Collection Time Receive d Time (Source) Location / / Volume Laterality Blood specimen 07/05/2017 10:05 7 (specimen) PM EST 10:05 PM EST Daphne Shahid MD POINT OF CARE TEST ORDERABLE S Performing Organization Address City/State/[place] [address] (ABNORMAL) POCT Glucose (07/05/2017 9:02 PM EST) P athologist Signature POC Glucose 301 (H) 65 - 199 [facility] mg/dL [facility] Comment: Supplemental ranges: <140 mg/dL before meals <180 mg/dL all other times of the day Specimen Anatomical Collection Method Collection Time Receive d Time (Source) Location / / Volume Laterality Blood specimen 07/05/2017 9:02 PM 017 9:02 (specimen) EST PM EST Daphne Shahid MD POINT OF CARE TEST ORDERABLE S Performing Organization Address City/State/[place] [address] XR Chest PA or [...] 474 ms MUSE SYSTEM (Bezet) Calculated P [place] 50 degrees MUSE SYSTEM Calculated R [place] -28 degrees MUSE SYSTEM Calculated T [place] 90 degrees MUSE SYSTEM INTERPRETATION Sinus tachycardia [...] (ANC) 9.08 (H) 1.70 - [facility] 6.10 [facility] x10(3)/[facility] L LABORATORY Lymphocytes % 7.0 % [facility] LAB[facility]ATORY Lymphocytes Abs 0.7 (L) 0.9 - 3.2 [facility] x10(3)/[facility] LABORATORY Monocytes % 3.7 % [facility] LAB[facility]ORY Monocyte Abs 0.4 0.3 - 0.9 [facility] x10(3)/[facility] LABORATORY Eosinophils % 0.1 % [facility] LAB[facility]ATORY Eosinophils Abs 0.0 0.0 - 0.4 [facility] x10(3)/[facility] LABORATORY Basophils % 0.2 % [facility] LABORATORY Basophils Abs 0.0 0.0 - 0.1 [facility] x10(3)/[facility] LABORATORY Immature [...] Organization Address City/State/[place] [address] (ABNORMAL) Hemogram (07/05/2017 8:20 PM EST) Analysis Performed At Patho logist Time Signature WBC 10.3 (H) 4.0 - 9.5 [facility] x10(3)/[facility] LABORATORY RBC 4.64 4.58 - [facility] 5.54 [facility] x10(6)/[facility] LABORATORY Hemoglobin 14.1 13.7 - [facility] 16.5 gm/dL [facility] Hematocrit 40.8 40.5 - [facility] 48.5 % [facility] MCV 87.9 82.9 - [place] 93.1 [facility] LABORATORY MCH 30.4 27.5 - [place] 32.1 pg [facility] MCHC 34.6 32.0 - [place] 35.7 gm/dL [facility] Platelets 204 145 - 357 [facility] x10(3)/[facility] LABORATORY RDWSD 46.1 (H) 36.0 - [facility] 45.0 [facility] LABORATORY RDWCV 14.5 (H) 11.4 - [facility] R[facility] 13.8 % [facility] LAB[facility]ATORY MPV 9.7 7.6 - 12.9 [facility] LABORATORY nRBC % Auto 0.0 % [facility] LABORATORY nRBC Abs Auto 0.000 0.000 - [place] 0.000 [facility] x10(3)/[facility] LABORATORY Specimen Anatomical Collection Method Collection Time Receive d Time (Source) Location / / Volume Laterality Blood specimen 07/05/2017 8:20 PM 017 8:27 (specimen) EST PM EST Resulting Agency Comment Spec In Lab Daphne Shahid MD HEMATOLOGY ORDERABLES Performing Organization Address City/State/[place] [address] APTT (07/05/2017 8:20 PM [...] Organization Address City/State/[place] [address] (ABNORMAL) Cardiac Enzymes (LEB/CGP) (07/05/2017 8:20 PM EST) athologist Signature Troponin-T 2.11 (H) 0.00 - [place] 0.00 ng/mL [facility] Comment: The 99th percentile for [...] additional sample may be indicated. Reference: Third [place] Definition of Myocardial Infarction. Journal of the [employer] College of Cardiology 2012;60:1581-98 CK, Total 149 0 - 200 unit/L [facility] LABORATORY Specimen Anatomical Collection Method Collection Time Receive d Time (Source) Location / / Volume Laterality Blood specimen 07/05/2017 8:20 PM 017 8:27 (specimen) EST PM EST Resulting Agency Comment Spec In Lab Daphne Shahid MD CHEMISTRY ORDERABLES Performing Organization Address City/State/[place] [address] (ABNORMAL) Magnesium (07/05/2017 8:20 PM EST) P athologist Signature Magnesium 0.68 (L) 0.69 - 1.07 [facility] mmol/L [facility] Specimen Anatomical Collection Method Collection Time Receive d Time (Source) Location / / Volume Laterality Blood specimen 07/05/2017 8:20 PM 017 8:27 (specimen) EST PM EST Resulting Agency Comment Spec In Lab Daphne Shahid MD CHEMISTRY ORDERABLES Performing Organization Address City/State/[place] [address] (ABNORMAL) Basic Metabolic Panel (non-fasting) (07/05/2017 8:20 PM EST) P athologist Signature Glucose Lvl 321 (H) 65 - 199 [facility] mg/dL [facility] Comment: [...] in patients with acute kidney failure. http://[employer]/DHnkdep http://Webcentrix/DHMCnkf Specimen Anatomical Collection Method Collection Time Receive d Time (Source) Location / / Volume Laterality Blood specimen 07/05/2017 8:20 PM 017 8:27 (specimen) EST PM EST Resulting Agency Comment Spec In Lab Daphne Shahid MD CHEMISTRY ORDERABLES Performing Organization Address City/State/ZIP Code Phon e [place] [address] (ABNORMAL) POCT Glucose (07/05/2017 7:32 PM EST) P athologist Signature POC Glucose 296 (H) 65 - 199 [facility] mg/dL [facility] Comment: Supplemental ranges: <140 mg/dL before meals <180 mg/dL all other times of the day Specimen Anatomical Collection Method Collection Time Receive d Time (Source) Location / / Volume Laterality Blood specimen 07/05/2017 7:32 PM 017 7:32 (specimen) EST PM EST Daphne Shahid MD POINT OF CARE TEST ORDERABLE S Performing Organization Address City/State/[place] [address] CARDIAC CATHETERIZATION (07/05/2017 6:47 PM EST) Anatomical Region Laterality Modality Other Specimen (Source) Anatomical Location Collection Method / Collectio n Time Received Time / Laterality Volume Narrative 07/05/2017 7:27 PM EST ?[facility] ? Cardiac Cathete rization/Intervention Report ? Patient Name: Natalya, Gregory ? Procedure Date: 07/05/2017 ? A #: [id number] ? Primary Physician: Clarisa, Jet T ? Case #: [id number] ? File Name: [id number] ? Catheterization Order Number: [id number] ? [facility] ? Final Report [place], [place] ? Patient Name: ? Gregory Natalya ?ID#: ?[id number] ? : ?1945 ? Procedure Date: ? [...] the original. [facility] Cardiac Catheterization/Intervention Re port Patient Name: Gregory Hoang Procedure Date: 07/05/2017 A #: [id number] Primary Physician: Jet Mckenna Case #: [id number] File Name: [id number] Catheterization Order Number: [id number] [facility] Director Of [employer] [facility] Final Report [place], [place] Patient Name: Gregory Hoang ID#: [id number] : 1945 Procedure Date: July 05, [...] Mccollum ? (Age): 1945(72y) Med Rec#: ? [id number] ?Sex: ?M ? Site Loc: ? [facility] [place] ?Ht / Wt: ??173(cm)/86(kg) Pt. Loc: ?CCU ? BSA: ?2 Study Date: ?? 07/05/2017 ?Pt. Type: Inpatient Tape: ? Referring: Daphne Shahid ([id number]) Referring: MANDA ALCANTAR Reading: Blade Preston ([id number]) Web Content Coordinator: Dayami Paula BA, [facility] Diagnosis: *ICD-10-PCS [...] E-wave Vmax ?0.8 ?m/sec ? MV deceleration [id number] ?msec ? MV A-wave Vmax ?0.8 ?m/sec [...] ? Mid-Inferior ?Akinetic ? Mid-Inferoseptal ?Hypokinetic ? Rolfe-Septal ? Akinetic ? Rolfe-Anterior ? Hypokinetic ? Rolfe-Lateral ?Hypokinetic ? Rolfe-Inferior ? Akinetic ? Rolfe-Tip ?Akinetic ? This report has been electronically sign ed by: _ Blade Preston MD ? 07/06/2017 08 :53:15 Images reviewed and interpretation verif ied [facility] Cardiac Ultrasound Laboratory Procedure Note Blade Preston MD - 07/06/2017Formatt ing of this note might be different from the original. Procedure: Transthoracic Echocardiogram Patient: NATALYA MCBRIDE(Age): [birth year]72y) Med Rec#: [id number] Sex: M Site Loc: [facility] [facility] Ht / Wt: 173(cm)/86(kg) Pt. Loc: CCU BSA: 2 Study Date: 07/05/2017 Pt. Type: Inpatie nt Tape: Referring: Daphne Shahid ([id number]) Referring: MANDA ALCANTAR Reading: Blade Preston ([id number]) Web Content Coordinator: Dayami Paula BA, [facility] Diagnosis: *ICD-10-PCS [...] MV E-wave Vmax 0.8 m/sec MV deceleration [id number] msec MV A-wave Vmax 0.8 m/sec MV [...] Hypokinetic Mid-Posterolateral Hypokinetic Mid-Inferior Akinetic Mid-Inferoseptal Hypokinetic Rolfe-Septal Akinetic Rolfe-Anterior Hypokinetic Rolfe-Lateral Hypokinetic Rolfe-Inferior Akinetic Rolfe-Tip Akinetic This report has been electronically sign ed by: _ Blade Preston MD 07/06/2017 08:53:15 Images reviewed and interpretation verif ied [facility] Cardiac Ultrasound Laboratory Daphne Shahid MD ECHO ORDERABLES Differential, Automated (07/05/2017 4:55 PM EST) athologist Signature Neutrophils % 77.0 % [facility] LABORATORY Neutr Abs (ANC) 5.26 1.70 - [facility] 6.10 [facility] x10(3)/[facility] LABORATORY Lymphocytes % 13.3 % [facility] LABORATORY Lymphocytes Abs 0.9 0.9 - 3.2 [facility] x10(3)/[facility] LABORATORY Monocytes % 8.2 % [facility] LABORATORY Monocyte Abs 0.6 0.3 - 0.9 [facility] x10(3)/[facility] LABORATORY Eosinophils % 0.7 % [facility] LABORATORY Eosinophils Abs 0.0 0.0 - 0.4 [facility] x10(3)/[facility] LABORATORY Basophils % 0.4 % [facility] LABORATORY Basophils Abs 0.0 0.0 - 0.1 [facility] x10(3)/[facility] LABORATORY Immature Gran % [...] 0.04 x10(3)/[facility] MAR Y [facility] LABORATORY Specimen Anatomical Collection Method Collection Time Receive d Time (Source) Location / / Volume Laterality Blood specimen 07/05/2017 4:55 PM 017 5:24 (specimen) EST PM EST Resulting Agency Comment Spec In Lab Daphen Shahid MD HEMATOLOGY ORDERABLES Performing Organization Address City/State/[place] [address] (ABNORMAL) Hemogram (07/05/2017 4:55 PM EST) Analysis Performed At Patho logist Time Signature WBC 6.8 4.0 - 9.5 [facility] x10(3)/[facility] LABORATORY RBC 4.67 4.58 - [facility] 5.54 [facility] x10(6)/[facility] LABORATORY Hemoglobin 14.0 13.7 - [facility] 16.[facility] gm/dL [facility] Hematocrit 41.0 40.5 - [facility] 48.5 % [facility]AT[facility] MCV 87.8 82.9 - [facility] 93.1 [facility] LABORATORY MCH 30.0 27.5 - [facility] RYAN 32.1 pg [facility] LABORATORY MCHC 34.1 32.0 - [facility] 35.7 gm/dL [facility] Platelets 197 145 - 357 [facility] x10(3)/[facility] LABORATORY RDWSD 46.4 (H) 36.0 - [facility] 45.0 [facility] LABORATORY RDWCV 14.5 (H) 11.4 - [facility] RYAN 13.8 % [facility] LABORATORY MPV 9.7 7.6 - 12.9 [facility] LABORATORY nRBC % Auto 0.0 % [facility] LABORATORY nRBC Abs Auto 0.000 0.000 - [place] 0.000 [facility] x10(3)/[facility] LABORATORY Specimen Anatomical Collection Method Collection Time Receive d Time (Source) Location / / Volume Laterality Blood specimen 07/05/2017 4:55 PM 017 5:24 (specimen) EST PM EST Resulting Agency Comment Spec In Lab Daphne Shahid MD HEMATOLOGY ORDERABLES Performing Organization Address City/State/[place] [address] (ABNORMAL) Cardiac Enzymes (LEB/CGP) (07/05/2017 4:55 PM EST) athologist Signature Troponin-T 1.69 (H) 0.00 - [place] 0.00 ng/mL [facility] Comment: The 99th percentile for [...] additional sample may be indicated. Reference: Third [place] Definition of Myocardial Infarction. Journal of the [employer] College of Cardiology 2012;60:1581-98 CK, Total 191 0 - 200 unit/L [facility] LABORATORY Specimen Anatomical Collection Method Collection Time Receive d Time (Source) Location / / Volume Laterality Blood specimen 07/05/2017 4:55 PM 017 5:56 (specimen) EST PM EST Resulting Agency Comment Spec In Lab Daphne Shahid MD CHEMISTRY ORDERABLES Performing Organization Address City/[facility]/[place] [address] (ABNORMAL) pro-Brain Natriuretic Peptide (07/05/2017 4:55 PM EST) athologist Signature ProBNP 1,598 (H) <=125 [facility] pg/mL [facility] LABORATORY Specimen Anatomical Collection Method Collection Time Receive d Time (Source) Location / / Volume Laterality Blood specimen 07/05/2017 4:55 PM 017 5:24 (specimen) EST PM EST Resulting Agency Comment Spec In Lab Daphne Shahid MD CHEMISTRY ORDERABLES Performing Organization Address City/[facility]/ZIP Code Phon e Number [address] Magnesium (07/05/2017 4:55 PM EST) athologist Signature Magnesium 0.78 0.69 - 1.07 [facility] mmol/L [facility] LABORATORY Specimen Anatomical Collection Method Collection Time Receive d Time (Source) Location / / Volume Laterality Blood specimen 07/05/2017 4:55 PM 017 5:24 (specimen) EST PM EST Resulting Agency Comment Spec In Lab Daphne Shahid MD CHEMISTRY ORDERABLES Performing Organization Address City/[facility]/[place] [address] (ABNORMAL) Basic Metabolic Panel (non-fasting) (07/05/2017 4:55 PM EST) athologist Signature Glucose Lvl 230 (H) 65 - 199 [facility] mg/dL [facility] Comment: [...] or in patients with acute kidney failure. http://Webcentrix/DHnkdep http://Webcentrix/[facility]f Specimen Anatomical Collection Method Collection Time Receive d Time (Source) Location / / Volume Laterality Blood specimen 07/05/2017 4:55 PM 017 5:24 (specimen) EST PM EST Resulting Agency Comment Spec In Lab Daphne Shahid MD CHEMISTRY ORDERABLES Performing Organization Address City/[facility]/[place] [address] (ABNORMAL) APTT (07/05/2017 4:55 [...] Organization Address City/State/[place] [address] (ABNORMAL) POCT Glucose (07/05/2017 4:53 PM EST) P athologist Signature POC Glucose 208 (H) 65 - 199 [facility]dL [facility] Comment: Supplemental ranges: <140 mg/dL before meals <180 mg/dL all other times of the day Specimen Anatomical Collection Method Collection Time Receive d Time (Source) Location / / Volume Laterality Blood specimen 07/05/2017 4:53 PM 017 4:53 (specimen) EST PM EST Daphne Shahid MD POINT OF CARE TEST ORDERABLE S Performing Organization Address City/State/ZIP Code Phon e Number [address] EKG 12 Lead (07/05/2017 4:32 PM EST) Component Value Ref Range Test Analysis Performed Pathologis t Method Time At Signature Ventricular rate 97 BPM MUSE SYSTEM Atrial Rate 97 BPM MUSE SYSTEM P-R Interval 148 ms MUSE SYSTEM QRS Duration 96 ms MUSE SYSTEM Q-T Interval 364 ms MUSE SYSTEM QTC Calculated 462 ms MUSE SYSTEM (Bezet) Calculated P [place] 48 degrees MUSE SYSTEM Calculated R [place] -33 degrees MUSE SYSTEM Calculated T [place] 98 degrees MUSE SYSTEM INTERPRETATION Normal sinus [...] Ale Rangel , [id number] (Given - Provider: mE Jones, VAMSI) 12.5 mg, Oral, EVERY 8 [...] documented in this encounter Care Teams Director Financial Systems Relationship Specialty Start Date End Date Lovely Vicente MD PCP - General 04/16/[address] [place] [address] [address] [place] [address] documented as of this encounter
--- OUTSIDE RECORDS SUMMARY | 2022-05-20 09:41 | XMS_ITS | Encounter Summary ---
:1945 [place] [address] Care Team Providers Name Role Phone Lovely Vicente MD Primary Care Provider Reason for Visit Auth/Cert Specialty Diagnoses / Procedures Referred By Contact Refer red To Contact Diagnoses STEMI (ST elevation myocardial infarction) NSTEMI STEMI Procedures CARDIAC CATHETERIZATION NAYE IPI Referral ID Status Reason Start Date Expiration Date Visits Requ ested Visits Authorized [id number] 1 1 Encounter Details Date Type Department Care Team Description 07/05/2017 Surgery Civil Lawyer Jet Guan, CARDIAC CATHETERIZATION [facility] [place] [address] CARDIOLOGY DEPT. [phone] [place], [place] [address] (Wo rk) Social History Tobacco [...] this encounter Discharge Summaries Martha Teague S, BRUSH HEAD MAKER - 07/14/2017 9:38 AM EST Inpatient [...] , @ 1:20p Patient to follow-up with Refueling Rampman/heart failure team in one week. An appointment will be made for you. You may call [phone] Patient to follow-up with Cardiac Surgery, Dr. Yuan Webber, in ~ 4 weeks with CXR, EKG. Inpatient Provider Contact Information: [facility] Section of Cardiac Surgery [facility] [address] FAX [phone] Discharge Diagnoses (Hospital Problems) Primary Diagnoses: CAD [...] by mouth daily. 90 tablet 3 07/05/2017 [id number] ??? ascorbic acid, vitamin C, (VITAMIN C) [...] Hospital Course: Gregory Hoang was admitted to [facility] on 07/05/2017 via the Cardiology Service. During his hospital course, he was taken emergently to the catheterization laboratory technician for an ongoing STEMI. An [...] not take or discontinue any prescription or yozf-lbj-jtoocur medications without asking your doctor or pharmacist [...] Yuan Webber and/or the Cardiac Surgery Physician Sewing Department Supervisor Team may be reached at . [...] Dr. Yuan Webber. You may use a Sherrill Track or treadmill but avoid any pulling [...] friends, go to a movie, go to adventist, etc. Heavy activities: No hunting, skiing, jogging, snow shoveling, snowmobiling, lawn mowing, swimming, golf or tennis until after your return appointment with the surgeon. Do not ride motorcycles, [employer] tractors or horses. Avoid the use of [...] should resume a low fat, low cholesterol, [place] [employer] Diet/Diabetic diet. Driving: No [...] , @ 1:20p Patient to follow-up with Refueling Rampman/heart failure team in one week. Appointment will be made for you. You may call [phone] Patient to follow-up with Cardiac Surgery, Dr. Yuan Webber, in ~ 4 weeks with CXR, EKG. Cardiac Rehabilitation: Gregory Hoang was seen today regarding participation in the outpatient Phase 2 Cardiac Rehabilitation at [facility]. The patient agrees to a referral to this program. The referral will be sent at discharge and the patient should be contacted by the Program within 1- 2 weeks from discharge. ?? Future Appointments and Orders Future Appointments Provider Department Dept Phone 09/07/2017 3:00 PM LAB, THREE L Lab 3L [facility] [phone] 09/07/2017 4:00 PM Luz Prescott MD Endocrinology at [facility] [phone] Future Orders Complete By Expires EKG 12 Lead [EKG1 Custom] 08/14/2017 02/13/2018 Process Instructions: Scheduling Instructions: Questions: Which DH location will this be performed?: [facility] Is a rhythm strip needed?: No If EKG Reason is Pre-op Evaluation, indicate diagnosis for surgery.: XR Chest PA & Lateral (Generic) [[id number] Custom] 08/14/2017 02/13/2018 Process Instructions: Scheduling Instructions: Questions: Where will study be performed?: [facility] Portable exam?: Reason for exam and clinical history: CABG x 3 Other pertinent information: Stat read required?: Date of injury if applicable: Requested Time: Referral to Cardiac Rehab [WBE632 Custom] As directed Process Instructions: If no progress note charted, please enter Clinical details in comments. Scheduling Instructions: Questions: My question or request is: s/p CABG. Cardiac rehab at [facility] Referral to Home Health - at DISCHARGE [[id number] CPT(R)] As directed Process Instructions: Scheduling Instructions: Comments: DOCUMENTATION FOR VNA SERVICES (INCLUDING THOSE PATIENTS WITH MEDICARE COVERAGE REQUIRING HOME VNA SERVICES AND/OR HOSPICE SERVICES) PATIENT'S LOCATION: Gregory Hoang [address] [place] [address] [place] [address] (home) Telephone Information: Implant Polisher's Name: self In discussion with the attending physician, it is certified that this patient is under their care and that they, or a Nurse Practitioner, or Physician Sewing Department Supervisor who is working directly with them, [...] [facility] ([facility] [place] [facility] in [place] PHONE: [phone] FAX: [phone] RN orders: Cardiopulmonary assessment, incisional assessment, assess vital signs, assessment of rehab progress, medication management and effectiveness, home safety evaluation. Please draw INR if indicated and send result to:Dr Vicente [phone] PT ORDERS: Continue rehab for endurance, gait stability and strength with mobility and transfers. Home safety evaluation. Home exercise program if appropriate. Start of Care Date:24-48 hours after discharge SPECIAL INSTRUCTIONS: For any follow up questions, needs, or issues please call the Cardiac Surgery Office at [phone] FOR MEDICARE ONLY: (please delete this section [...] [facility] Section of Cardiac Surgery [facility] [address] FAX [phone] Date: 07/14/2017 CC: MD Ivania Cr Betsy, PA [address] [place] [phone] documented in this encounter Discharge Instructions Discharge [...] not take or discontinue any prescription or meix-jgl-iqyvtbc medications without asking your doctor or pharmacist [...] Yuan Webber and/or the Cardiac Surgery Physician Sewing Department Supervisor Team may be reached at . [...] Dr. Yuan Webber. You may use a Sherrill Track or treadmill but avoid any pulling [...] friends, go to a movie, go to adventist, etc. ?? Heavy activities: No hunting, skiing, jogging, snow shoveling, snowmobiling, lawn mowing, swimming, golf or tennis until after your return appointment with the surgeon. Do not ride motorcycles, [employer]'s tractors or horses. Avoid the use [...] should resume a low fat, low cholesterol, [place] [employer] Diet/Diabetic diet. ?? Driving: [...] @ 1:20p ?? Patient to follow-up with Refueling Rampman/heart failure team in one week. An appointment has been made for you, you can call [phone] ?? Patient to follow-up with Cardiac Surgery, Dr. Yuan Webber, in ~ 4 weeks with CXR, EKG. ? Cardiac Rehabilitation: Gregory Hoang??was seen today regarding participation in the outpatient Phase 2 Cardiac Rehabilitation at [facility]. ?? The patient agrees to a referral to this program.? The referral will be sent at discharge and the patient should be contacted by the Program within 1- 2 weeks from discharge. ? Future Appointments and Orders Future Appointments Provider Department Dept Phone ?? 09/07/2017 3:00 PM LAB, THREE L Lab 3L [facility] [phone] ?? 09/07/2017 4:00 PM Luz Prescott MD Endocrinology at [facility] [phone] Future Orders Complete By Expires ?? EKG 12 Lead [EKG1 Custom] 08/14/2017 02/13/2018 ?? Process Instructions: ? Scheduling Instructions: ? Questions: ? Which location will this be performed?: [facility] ?? Is a rhythm strip needed?: No ?? If EKG Reason is Pre-op Evaluation, indicate diagnosis for surgery.: ?? XR Chest PA & Lateral (Generic) [[id number] Custom] 08/14/2017 02/13/2018 ?? Process Instructions: ? Scheduling Instructions: ? Questions: ? Where will study be performed?: [facility] ?? Portable exam?: ?? Reason for exam and clinical history: CABG x 3 ?? Other pertinent information: ?? Stat read required?: ?? Date of injury if applicable: ?? Requested Time: ?? Referral to Cardiac Rehab [PTH115 Custom] As directed ? Process Instructions: ?? If no progress note charted, please enter Clinical details in comments. ?? Scheduling Instructions: ? Questions: ? My question or request is: s/p CABG. Cardiac rehab at [facility] ? Arrangements for VNA/home care: As [...] RN - 07/14/2017 2:34 PM EST The patient/bilingual inside sales representative has been provided a list of Home Health Agencies/DME vendors which serve their preferred geographic area. A letter describing our affiliations was reviewed with them and theywere educated about their right to choose where referrals are placed. Patient requests referral to [facility]. PHONE: [phone] FAX: [phone] Expected date of discharge: 07/14 Referral routed to the Automotive General Manager for matching with agency/vendor and to [...] [facility] Management Pager [phone] minutes of this 35 minute visit was spent with the patient in counseling on diabetes and treatment plan, reviewing all glucose and insulin data as well as relevant laboratory results with the patient, and coordination of care on the inpatient unit including nursing and primary team. Zulma Andres RN - 07/14/2017 10:30 AM EST The patient/bilingual inside sales representative has been provided a list of Home Health Agencies/DME vendors which serve their preferred geographic area. A letter describing our affiliations was reviewed with them and theywere educated about their right to choose where referrals are placed. Patient requests referral to : Yasmani Munguia ([facility] [place] [facility] in [place]) PHONE: [phone] FAX: [phone]. Expected date of discharge: 07/14/17 Referral routed to the Automotive General Manager for matching with agency/vendor and to [...] [facility] Management Pager [phone] minutes of this 25 minute visit [...] of infiltration/extravasation Discussed plan of care with SWITCH MAKER and RN. Elevate exrtemity and apply [...] measuring tape and identifier in the photo) LABORATORY MILLER CARING FOR THIS PATIENT WILL CONTINUE TO [...] measuring tape and identifier in the photo) LABORATORY MILLER CARING FOR THIS PATIENT WILL CONTINUE TO [...] both infiltrates addressed by this underwriter.All of Mr. Hoang's responses were entirely appropriate. Images of infiltrates attached here. Martha Sharp APRN - 07/13/2017 8:01 AM EST Cardiac Surgery Progress Note: ID: [id number] 72 year old male POD#6 s/p CABGx3 [...] discharge. ?? I have met with the patient/bilingual inside sales representative to discuss discharge planning needs. I have provided the [facility] Office of Care Management letter from the Warp Spooler pertaining to rehab referrals. I have also provided a letter describing our affiliations within the [facility] and educated them about their right to choose where referrals are placed. ?? I reviewed the different levels of rehab including SNF, swing, acute and LTAC with the patient/bilingual inside sales representative. ?? The patient/bilingual inside sales representative has been provided a list of facilities within their preferred geographic area. ?? I have requested that the patient/bilingual inside sales representative provide at least three choices for referral. ?? The patient/bilingual inside sales representative have requested referrals to: ?? 1. . ?? 2. [facility] ?? 3. More to be entered ?? Expected date of discharge: 07/14 Note routed to Automotive General Manager who will communicate referrals to facilities [...] hours. If BG remains greater than 240, yrsoik28 units (no more than three times) & [...] [facility] Management Pager [phone] 20 minutes of this 35 minute visit was spent with the patient in counseling on diabetes and treatment plan, reviewing all glucose and insulin data as well as relevant laboratory results with the patient, and coordination of care on the inpatient unit including nursing and primary team. Makayla Stevenson APRN - 07/12/2017 9:52 AM EST Cardiac Surgery Progress Note: ID: [id number] 72 year old male POD#5 s/p CABGx3 [...] 07/11/2017 7:18 PM EST Patient arrived from [facility]. VSS. MSI dressing pulled off [...] hours. If BG remains greater than 240, eopktk72 units (no more than three times) & [...] AM EST Cardiac Surgery Progress Note: ID: [id number] 72 year old male POD#4 s/p CABGx3 [...] AM EST Cardiac Surgery Progress Note: ID: [id number] 72 year old male POD#3 s/p CABGx3 [...] Gas) No results found for: PHART, PO2ART, SEB1FTY Assessment/Plan: 72 year old male POD#3 s/p [...] Mami Thao - 07/09/2017 6:29 PM EST Refrigerator Room Clerk Encounter Note Patient Name: Gregory Hoang : [id number] MR#: [id number] Admit Date: 07/05/2017 4:20 PM Hospital Day 4 days Narrative: Patient was sitting in chair, hugging heart pillow, opened his eyes, nodding to come into room Assessment: Patient was sleepy. Intervention and Outcome: Introduced pole framer services and patient reached his hand out in appreciation. Follow-up: Refrigerator Room Clerk remains available for support. Time in [...] AM EST Cardiac Surgery Progress Note: ID: [id number] 72 year old male POD#2 s/p CABGx3 [...] Attending Surgeon on rounds. Signed: STEPHANIE Iqbal [facility] Section of Cardiac Surgery Date: 07/09/2017 [...] when IABP d/c'ed. Gretchen Carolina, PT Pager [phone] Maddison Cee PA - 07/08/2017 11:27 AM EST Cardiac Surgery Progress Note: ID: [id number] 72 year old male POD#1 s/p CABGx3 [...] Attending Surgeon on rounds. Signed: STEPHANIE Iqbal [facility] Section of Cardiac Surgery Date: 07/08/2017 [...] in place in R femoral. No hematoma. FIRE COORDINATOR- Intact Psych- Anxious Skin- Dry, no peripheral [...] intact. IABP in place in R femoral. FIRE COORDINATOR- Intact Psych- Anxious Skin- Dry, no peripheral [...] note for details. DAPHNE SHAHID MD Pager [phone] ClarisaJet lynn MD - 07/05/2017 6:48 PM EST Preliminary Cardiac Catheterization Procedure Note: Procedure(s) performed: Left heart cath, IABP insertion Access: Right BALLET PROFESSOR-->8fr IABP A time-out was conducted prior to [...] effect. Heparin gtt maintained. Pt transferred to catheterization laboratory technician. documented in this encounter H&P Notes Daphne Shahid MD - 07/05/2017 6:08 PM EST CARDIOLOGY HISTORY & PHYSICAL EXAM Date of Admission: 07/05/2017 ( Hospital Day 0 days ) Responsible Attending: Daphne Shahid MD PCP: Lovely Vicente MD PCP#: [phone] Patient Active Problem List Diagnosis Code ??? [...] load with heparin drip and transferred to [facility]. While there, continued sob, question of chest pain. Stat TTE showing WMA diffusely and EF around 20%. No significant valvular disease. Taken to the catheterization laboratory technician urgently for ongoing STEMI. [facility] Labs: INR 1.0 WBC 5.88 Hgb [...] 72 y.o. male w/ a h/o MARIA VICOTRIA (on CPAP), DM2, COPD, HTN, HLD, GERD, [...] monitor I/O - s/p lasix in the catheterization laboratory technician, redose to aim net neg [...] Medicine, PGY-2 Cardiology S1, Team Pager # [phone] CARDIOLOGY ATTENDING NOTE Patient: Gregory Hoang Date [...] amenable for PCI. DAPHNE SHAHID MD Pager [phone] documented in this encounter Miscellaneous Notes Consult Note - Daphne Shahid MD - 07/14/2017 11:46 AM EST Heart Failure Service Inpatient Consult Note Gregory Hoang Date of : 1945 Age: 72 y.o. Today's date: 07/14/17 PCP: Lovely Vicente MD DELICATESSEN SLICER: None Place of Service: [facility] Reason for Consult: Dr. Webber has requested [...] MD at [facility] Outpt Meds: Current Outpatient [...] EKG 07/14/17: NSR 75 bpm, DIRECTOR OF SPORTS MEDICINE anterior infarct, LAD CXR 07/11/17: FINDINGS: Sternotomy wires. The patient has been extubated, left chest tube removed, and Penasco-Suzi catheter removed since the 07/07/2017 study. Atelectasis [...] was discussed with Kono. Jaden Kelley MD Foreign Trade Teacher Pager [phone] CARDIOLOGY ATTENDING NOTE Patient: Gregory [...] heart failure clinic. DAPHNE SHAHID MD Pager [phone] Plan of Care - Alden Chavarria PTA [...] home with assist Alden Chavarria PTA Pager: [phone] Inpatient Physical Therapy Problem: Acute Rehab Services [...] sit/sit to supine -- Bed Mobility Goal, Rogers Level supervision required -- Bed Mobility Goal, [...] - 3 days -- Gait Training Goal, Rogers Level supervision required -- Gait Training Goal, [...] days -- Transfer Training Goal, Activity Type itw-up-wjqvp/qbzcu-qv-aal;wrg-nv-jjnfl/pknpm-pn-hkh;toilet -- Transfer Train Goal, Rogers Level supervision required -- Transfer Training Goal, [...] keeping present for 2 days per family. Software Test Manager noted of frustrations, house keeping sent to room. Patient offered showered twice, refused. at bedside, frustrated that shower not complete, informed that patient had refused several times. requesting to see GROOVER AND TURNER, paged sent to Martha, will come to bedside (middle of consult). not willing to wait, Martha notified that family had gone home. Encouraged to come for morning rounds a t 8am. Diabetes team at bedside - insulin adjustments made. Call cabello in reach. Continue to monitor. PLAN MOVING FORWARD: Ambulate, dressing changes BID, Please change drsg at 4am per Martha GROOVER AND TURNER request. INDIVIDUALIZED FALL PREVENTION INTERVENTIONS: Patient-specific fall [...] levels on the lower side, 60ml of Seminole juice given after a FS of 80. [...] Conf 07/13/17 0502 Interdisciplinary Rounds/Family Conf Participants heel caser;dietitian/nutrition services;nursing;occupational therapy;patient;pharmacy;physical therapy;physician Plan of Care [...] monitoring required during toileting and ADLs]: RN SWITCH MAKER Surveillance [continuous indirect monitoring]: Barrett Monitor [...] Anticipated Discharge Disposition: home with assist Pager: [phone] CLARISSA SEGAL, PT 07/12/2017 Physical Therapy Rehabilitation [...] to sit/sit to supine Bed Mobility Goal, Rogers Level supervision required Bed Mobility Goal, Additional Goal adheres to psternal precautions for transfer Goal: Gait Training Goal Stand Alone Therapy Goal Outcome: Ongoing (Interventions Implemented as Appropriate) 07/12/17 1225 Gait Training Goal Gait Training Goal, Date Established 07/12/17 Gait Training Goal, Time to Achieve 2 - 3 days Gait Training Goal, Rogers Level supervision required Gait Training Goal, Assist [...] 3 days Transfer Training Goal, Activity Type czm-hn-ttjgy/zetoj-ul-vmy;pkd-lg-uvzlc/kfhsw-to-vxd;toilet Transfer Train Goal, Rogers Level supervision required Transfer Training Goal, Additional Goal adheres to sternal precautions during transfer Consult Note - Octavia Vaughn RN - 07/12/2017 10:50 AM EST [facility] Gregory Hoang was seen today regarding participation in the outpatient Phase 2 Cardiac Rehabilitation at [facility]. The patient agrees to a referral [...] IV site, amio to other piv and INSTRUMENTATION AND CONTROLS DESIGNER at bedside to help assess, IV removed. [...] staff, he stood and marched in place. [place] weak, wanting to sit back down. Remained [...] Health/Prescription Coverage: Primary Insurance: MEDICARE Secondary Insurance: [employer] [place] Prescription Coverage: yes Preferred Pharmacy: [facility] [place] Other: none Primary Care Provider: Lovely Vicente MD [phone] Patient/Caregiver Goals of Treatment:live and get my [...] transition of care planning. ERLIN Weiss Pager: [phone] Consult Note - Katerin Azul RN - [...] patient W/E coverage, Dr. Jeane Tatum, pager [phone] Katerin Azul APRN Endocrinology Diabetes Management Pager [phone] Plan of Care - Stephanie Godoy RN [...] [facility] Operative Note Patient Name: Gregory Hoang : [id number] MR#: [id number] Case Date: 07/07/2017 Surgeon: Surgeon(s) and Role: * Yuan Webber MD - Primary * Michael Drake PA - Physician Sewing Department Supervisor * Linda Flores PA - Physician Sewing Department Supervisor Preoperative diagnosis: 3VD Postoperative diagnosis: CAD, [...] Operative Note Patient Name: Gregory Hoang : [id number] MR#: [id number] Case Date: 07/07/2017 Surgeon: Surgeon(s) and Role: * Yuan Webber MD - Primary * Michael Drake PA - Physician Sewing Department Supervisor * Linda Flores PA - Physician Sewing Department Supervisor Preoperative diagnosis: 3VD Postoperative diagnosis: CAD, [...] (reference Cardiac: ACS (Acute Coronary Syndrome) (Adult) [facility] 07/07/17621 Cardiac: ACS (Acute Coronary Syndrome) Problems [...] Hahn, MS3 [employer] [facility] Cardiology S1 (Pager [phone]) Plan of Care - Emelia Ibarra RN [...] with other involved physicians Yuan Webber MD [phone] Med Student Progress Note - Katty Hahn [...] or BiPAP - s/p lasix in the catheterization laboratory technician, was net -1.5L - s/p [...] [facility] Cardiology S1 (Pager [phone]) Plan of Care - Stephanie Godoy RN - 07/06/2017 5:00 AM EST Problem: Patient Care Overview Goal: Plan of Care Review 07/06/17 3641 Coping/Psychosocial Plan Of Care Reviewed With patient;family [...] in urinal without difficulty. Lasix given in catheterization laboratory technician, 1.4 L out at this [...] Zulma Dolan MD [facility] [place] [address] (Wo rk) 05/28/2022 Laboratory Appointment Lab 05/28/2022 Office Visit Cardiology Zulma Dolan MD [facility] [place] [address] Liz Poole PA [facility] [place] [address] 06/10/2022 Office Visit Dermatology Laura Scherer MD [facility] DR TEJA GR-DERMAT OLOGY [place], [place] [address] (Wo rk) Scheduled Orders Name [...] i n the results section. DIRECTOR OF PARTNERSHIPS SCAN 07/15/2017 12:00 Res ults for this [...] f or this ([facility] AM EST procedure are i [...] 5:15 Results f or this ([facility] f or this ([facility]) PM EST procedure are i [...] f or this ([facility]) PM EST procedure are i [...] 2017 EXAMINATION: XR CHEST PA AND LATERAL ([employer]) CLINICAL HISTORY: CABG x 3 TECHNIQUE: PA [...] IMG DX ORDERABLES SCAN DOC: DIRECTOR OF PARTNERSHIPS (07/15/2017 12:00 AM EST) Narrative 07/15/2017 12:00 [...] POC Glucose 186 65 - 199 [facility] mg/dL [facility] Comment: Supplemental ranges: <140 mg/dL before meals <180 mg/dL all other times of the day Specimen Anatomical Collection Method Collection Time Receive d Time (Source) Location / / Volume Laterality Blood specimen 07/14/2017 11:56 7 (specimen) AM EST 11:56 AM EST Yuan Webber MD POINT OF CARE TEST ORDERABLE S Performing Organization Address City/State/[place] [address] POCT Glucose (07/14/2017 7:52 AM EST) athologist Signature POC Glucose 126 65 - 199 [facility] mg/dL [facility] Comment: Supplemental ranges: <140 mg/dL before meals <180 mg/dL all other times of the day Specimen Anatomical Collection Method Collection Time Receive d Time (Source) Location / / Volume Laterality Blood specimen 07/14/2017 7:52 AM 017 7:52 (specimen) EST AM EST Yaun Webber MD POINT OF CARE TEST ORDERABLE S Performing Organization Address City/[facility]/[place] [address] (ABNORMAL) Prothrombin Time (07/14/2017 [...] HEMATOLOGY ORDERABLES Performing Organization Address City/[facility] Code [facility] [place] [address] Potassium (07/14/2017 4:46 AM EST) athologist Signature Potassium 4.3 3.5 - 5.0 [facility] mmol/L [facility] Comment: Please [...] 115 65 - 199 [facility] mg/dL [facility] Comment: [...] City/[facility]/ZIP Code Phon e Number [address] POCT Glucose (07/13/2017 11:33 PM EST) athologist Signature POC Glucose 132 65 - 199 KATALINA ZHAORYAN mg/dL [facility] Comment: [...] Hospital/ZIP Code [place] [address] POCT Glucose (07/13/2017 9:25 PM EST) athologist Signature POC Glucose 121 65 - 199 KATALINA RYAN mg/dL [facility] Comment: [...] Signature POC Glucose 79 65 - 199 [facility] RYAN mg/dL [facility] [...] Signature POC Glucose 163 65 - 199 [facility] RYAN mg/dL [facility] [...] 96 65 - 199 KATALINA RYAN mg/dL [facility] Comment: [...] Number [address] (ABNORMAL) Prothrombin Time (07/13/2017 [...] Organization Address City/State/[place] [address] (ABNORMAL) Basic Metabolic Panel (non-fasting) (07/13/2017 4:26 AM EST) athologist Signature Glucose Lvl 95 65 - 199 [facility] mg/dL [facility] Comment: Diabetes: [...] or in patients with acute kidney failure. http://[facility]/DHnkdep http://[facility]/DHMCnkf Specimen Anatomical Collection Method Collection Time Receive [...] Signature POC Glucose 93 65 - 199 [facility]dL [facility] Comment: [...] Signature POC Glucose 80 65 - 199 [facility] Comment: Supplemental [...] 119 65 - 199 KATALINA ZHAORYAN mg/dL [facility] Comment: [...] City/[facility]/ZIP Code Phon e Number [address] POCT Glucose (07/12/2017 4:02 PM EST) athologist Signature POC Glucose 114 65 - 199 KATALINA RYAN mg/dL [facility] Comment: [...] 164 65 - 199 KATALINA ZHAORYAN mg/dL [facility] Comment: [...] 65 - 199 [facility] Comment: [...] Organization Address City/State/[place] [address] (ABNORMAL) Basic Metabolic Panel (non-fasting) (07/12/2017 4:11 AM EST) athologist Signature Glucose Lvl 92 65 - 199 [facility] Comment: Diabetes: [...] or in patients with acute kidney failure. http://[facility]/DHnkdep http://[facility]/DHMCnkf Specimen Anatomical Collection Method Collection Time Receive d Time (Source) Location / / Volume Laterality Blood specimen 07/12/2017 4:11 AM 017 8:57 (specimen) EST AM EST Resulting Agency Comment Spec In Lab Makayla Beaumont STACIE CHEMISTRY ORDERABLES Performing Organization Address [facility] [place] [address] (ABNORMAL) Prothrombin Time (07/12/2017 [...] Address [facility] Phon e Number [address] Potassium (07/12/2017 4:11 AM EST) P athologist Signature Potassium 3.8 3.5 - 5.0 [facility] mmol/L [facility] Comment: Please [...] ORDERABLES Performing Organization Address City/[facility]/ZIP [facility] Phon e Number [address] POCT Glucose (07/12/2017 4:10 AM EST) athologist Signature POC Glucose 90 65 - 199 [facility]/dL [facility] Comment: Supplemental [...] City/[facility]/ZIP Code Phon e Number [address] POCT Glucose (07/11/2017 11:57 PM EST) athologist Signature POC Glucose 98 65 - 199 [facility] mg/dL [facility] Comment: Supplemental [...] City/[facility]/ZIP Code Phon e Number [address] POCT Glucose (07/11/2017 8:32 PM EST) P athologist Signature POC Glucose 146 65 - 199 KATALINA DAVIS mg/dL [facility] Comment: Supplemental ranges: <140 mg/dL before meals <180 mg/dL all other times of the day Specimen Anatomical Collection Method Collection Time Receive d Time (Source) Location / / Volume Laterality Blood specimen 07/11/2017 8:32 PM 017 8:32 (specimen) EST PM EST Yuan Webber MD POINT OF CARE TEST ORDERABLE S Performing Organization Address City/State/[place] [address] XR Chest PA & [...] e xtubated, left chest tube removed, and Penasco-Suzi catheter removed since the study. Atelectasis at [...] e xtubated, left chest tube removed, and Penasco-Suzi catheter removed since the study. Atelectasis at [...] (H) 65 - 199 KATALINA RYAN mg/dL [facility] Comment: [...] City/[facility]/ZIP Code Phon e Number [address] POCT Glucose (07/11/2017 11:55 AM EST) athologist Signature POC Glucose 176 65 - 199 KATALINA RYAN mg/dL [facility] Comment: [...] Organization Address City/State/[place] [address] POCT Glucose (07/11/2017 7:53 AM EST) athologist Signature POC Glucose 189 65 - 199 KATALINA RYAN mg/dL [facility] Comment: [...] City/[facility]/ZIP Code Phon e Number [address] POCT Glucose (07/11/2017 4:22 AM EST) athologist Signature POC Glucose 151 65 - 199 KATALINA ZHAORYAN mg/dL [facility] Comment: [...] Address [facility]/[place] [address] Potassium (07/11/2017 2:20 AM EST) athologist Signature Potassium 4.5 3.5 - 5.0 [facility] mmol/L [facility] Comment: Please [...] City/[facility]/ZIP Code Phon e Number [address] POCT Glucose (07/11/2017 12:17 AM EST) athologist Signature POC Glucose 162 65 - 199 KATALINA RYAN mg/dL [facility] Comment: [...] 191 65 - 199 KATALINA RYAN mg/dL [facility] Comment: [...] Organization Address City/State/[place] [address] POCT Glucose (07/10/2017 4:06 PM EST) athologist Signature POC Glucose 131 65 - 199 KATALINA RYAN mg/dL [facility] Comment: [...] Signature POC Glucose 151 65 - 199 [facility] RYAN mg/dL [facility] [...] 146 65 - 199 KATALINA ZHAORYAN mg/dL [facility] Comment: [...] Organization Address City/State/[place] [address] POCT Glucose (07/10/2017 1:23 PM EST) athologist Signature POC Glucose 166 65 - 199 KATALINA ZHAORYAN mg/dL [facility] Comment: [...] Organization Address City/State/[place] [address] POCT Glucose (07/10/2017 11:52 AM EST) athologist Signature POC Glucose 157 65 - 199 [facility] RYAN mg/dL [facility] [...] 158 65 - 199 KATALINA ZHAORYAN mg/dL [facility] Comment: [...] City/[facility]/ZIP Code Phon e Number [address] POCT Glucose (07/10/2017 9:54 AM EST) P athologist Signature POC Glucose 160 65 - 199 KATALINA RYAN mg/dL [facility] Comment: [...] 183 65 - 199 KATALINA ZHAORYAN mg/dL [facility] Comment: [...] 173 65 - 199 KATALINA ZHAORYAN mg/dL [facility] Comment: [...] 166 65 - 199 KATALINA ZHAORYAN mg/dL [facility] Comment: [...] Organization Address City/State/[place] [address] POCT Glucose (07/10/2017 6:00 AM EST) athologist Signature POC Glucose 162 65 - 199 KATALINA RYAN mg/dL [facility] Comment: [...] City/State/ZIP Code Phon e Number [place] [id number] [facility] LABORATORY Drive (ABNORMAL) Differential, Automated (07/10/2017 4:28 AM EST) [facility] Method Time Signature Neutrophils % 87.9 % [facility] Neutr Abs (ANC) 10.70 (H) 1.70 - [facility] 6.10 [facility] x10(3)/[facility] L LABORATORY Lymphocytes % 3.9 % [facility] Lymphocytes Abs 0.5 (L) 0.9 - 3.2 [facility] x10(3)/[facility] LABORATORY Monocytes % 7.0 % [facility] Monocyte Abs 0.8 0.3 - 0.9 [facility] x10(3)/[facility] LABORATORY Eosinophils % 0.3 % [facility] Eosinophils Abs 0.0 0.0 - 0.4 [facility] x10(3)/[facility] LABORATORY Basophils % 0.2 % [facility] Basophils Abs 0.0 0.0 - 0.1 [facility] x10(3)/[facility] LABORATORY Immature Gran % 0.70 [...] City/[facility]/[place] [address] (ABNORMAL) Hemogram (07/10/2017 4:28 AM EST) Analysis Performed At Patho logist Time Signature WBC 12.2 (H) 4.0 - 9.5 [facility] x10(3)/[facility] LABORATORY RBC 3.31 (L) 4.58 - KATALINA ZHAORYAN 5.54 [facility] x10(6)/[facility] LABORATORY Hemoglobin 9.8 (L) 13.7 - [facility] 16.5 gm/dL [facility] Hematocrit 30.0 (L) 40.5 - [facility] 48.5 % [facility] MCV 90.6 82.9 - [facility] 93.1 [facility] LABORATORY MCH 29.6 27.5 - [facility] 32.1 pg [facility] MCHC 32.7 32.0 - [facility] 35.7 gm/dL [facility] Platelets 135 (L) 145 - 357 [facility] x10(3)/[facility] LABORATORY RDWSD 50.8 (H) 36.0 - [facility] 45.0 [facility] LABORATORY RDWCV 15.4 (H) 11.4 - [facility] 13.8 % [facility] MPV 10.0 7.6 - 12.9 [facility] LABORATORY nRBC % Auto 0.0 % [facility] nRBC Abs Auto 0.000 0.000 - [facility] 0.000 [facility] x10(3)/[facility] LABORATORY Specimen Anatomical [...] Signature Glucose Lvl 178 65 - 199 [facility] mg/dL [facility] Comment: Diabetes: [...] or in patients with acute kidney failure. [email or web address]/DHnkdep http://[facility]/DHMCnkf Specimen Anatomical Collection Method Collection Time Receive d Time (Source) Location / / Volume Laterality Blood specimen 07/10/2017 4:28 AM 017 4:36 (specimen) EST AM EST Resulting Agency Comment Spec In Lab Yuan Webber MD CHEMISTRY ORDERABLES Performing Organization Address City/State/[place] [address] POCT Glucose (07/10/2017 4:26 AM EST) P athologist Signature POC Glucose 176 65 - 199 [facility] mg/dL [facility] Comment: Supplemental [...] [address] LABOR[address]ORY Drive (ABNORMAL) POCT Glucose (07/10/2017 3:06 AM EST) P athologist Signature POC Glucose 204 (H) 65 - 199 [facility] RYAN mg/dL [facility] [...] City/[facility]/[place] [address] (ABNORMAL) POCT Glucose (07/10/2017 2:10 AM EST) P athologist Signature POC Glucose 203 (H) 65 - 199 [facility] RYAN mg/dL [facility] [...] Signature POC Glucose 196 65 - 199 [facility] RYAN mg/dL [facility] [...] 173 65 - 199 KATALINA ZHAORYAN mg/dL [facility] Comment: [...] Organization Address City/State/[place] [address] POCT Glucose (07/09/2017 11:01 PM EST) P athologist Signature POC Glucose 140 65 - 199 KATALINA RYAN mg/dL [facility] Comment: [...] Organization Address City/State/[place] [address] POCT Glucose (07/09/2017 10:05 PM EST) P athologist Signature POC Glucose 144 65 - 199 [facility] RYAN mg/dL [facility] [...] 121 65 - 199 KATALINA ZHAORYAN mg/dL [facility] Comment: [...] City/[facility]/ZIP Code Phon e Number [address] POCT Glucose (07/09/2017 9:03 PM EST) athologist Signature POC Glucose 98 65 - 199 KATALINA RYAN mg/dL [facility] Comment: [...] City/[facility]/ZIP Code Phon e Number [address] POCT Glucose (07/09/2017 8:09 PM EST) athologist Signature POC Glucose 117 65 - 199 KATALINA RYAN mg/dL [facility] Comment: [...] 155 65 - 199 KATALINA ZHAORYAN mg/dL [facility] Comment: [...] 164 65 - 199 KATALINA RYAN mg/dL [facility] Comment: [...] Signature POC Glucose 166 65 - 199 [facility] RYAN mg/dL [facility] [...] Organization Address City/State/[place] [address] POCT Glucose (07/09/2017 2:26 PM EST) athologist Signature POC Glucose 179 65 - 199 KATALINA ZHAORYAN mg/dL [facility] Comment: [...] City/[facility]/[place] [address] (ABNORMAL) POCT Glucose (07/09/2017 1:29 PM EST) athologist Signature POC Glucose 210 (H) 65 - 199 KATALINA RYAN mg/dL [facility] Comment: [...] City/[facility]/[place] [address] POCT Glucose (07/09/2017 12:20 PM EST) athologist Signature POC Glucose 172 65 - 199 KATALINA ZHAOYRAN mg/dL [facility] Comment: Supplemental [...] 156 65 - 199 K[facility]INA [facility]OCK mg/dL [facility] Comment: Supplemental [...] 172 65 - 199 KATALINA [facility]ILLAREALCOCK mg/dL [facility] Comment: Supplemental ranges: <140 mg/dL before meals <180 mg/dL all other times of the day Specimen Anatomical Collection Method Collection Time Receive d Time (Source) Location / / Volume Laterality Blood specimen 07/09/2017 11:11 7 (specimen) AM EST 11:11 AM EST Yuan Webber MD POINT OF CARE TEST ORDERABLE S Performing Organization Address City/State/[place] [address] [facility] [address] POCT Glucose (07/09/2017 10:08 AM EST) P athologist Signature POC Glucose 176 65 - 199 KATALINA ZHAORYAN mg/dL [facility] Comment: [...] Phon [place] [address] POCT Glucose (07/09/2017 8:02 AM EST) P athologist Signature POC Glucose 178 65 - 199 [facility] mg/dL [facility] Comment: Supplemental ranges: <140 mg/dL before meals <180 mg/dL all other times of the day Specimen Anatomical Collection Method Collection Time Receive d Time (Source) Location / / Volume Laterality Blood specimen 07/09/2017 8:02 AM 017 8:02 (specimen) EST AM EST Yuan Webber MD POINT OF CARE TEST ORDERABLE S Performing Organization Address City/State/[place] [address] (ABNORMAL) BLOOD GAS 2 ARTERIAL (07/09/2017 5:37 AM EST) Analysis Performed At Patho logist Time Signature pH Art 7.36 7.35 - [facility] 7.45 [facility] pCO2 Art 38 35 - 45 [facility] LABORATORY pO2 Art 79 (L) 85 - 104 [facility] LABORATORY HCO3 Art 20.9 20.0 - [facility] 26.0 [facility] mmol/L [facility] LABORATORY BE Art -4.6 (L) -3.0 - 3.0 [facility] mmol/L [facility] Hgb Blood Gas 10.5 (L) 13.7 - [facility] 16.5 gm/dL [facility] O2HB Art 93.8 (L) 94.0 - [facility] 97.0 % [facility] COHB Art 0.3 % [facility] PF Ratio Art 198 [facility]ORY Specimen Anatomical Collection Method Collection Time Receive d Time (Source) Location / / Volume Laterality Blood specimen 07/09/2017 5:37 AM 017 5:37 (specimen) EST AM EST Yuan Webber MD CHEMISTRY ORDERABLES Performing Organization Address City/[facility]/[place] [address] POCT Glucose (07/09/2017 3:27 AM EST) P athologist Signature POC Glucose 192 65 - 199 [facility] mg/dL [facility] Comment: Supplemental [...] City/[facility]/[place] [address] (ABNORMAL) Basic Metabolic Panel (non-fasting) (07/09/2017 2:30 AM EST) P athologist Signature Glucose Lvl 179 65 - 199 [facility] mg/dL [facility] Comment: Diabetes: [...] or in patients with acute kidney failure. http://[facility]/DHnkdep http://[facility]/DHMCnkf Specimen Anatomical Collection Method Collection Time Receive d Time (Source) Location / / Volume Laterality Blood specimen Venous Draw / 07/09/2017 2:30 AM 2016 2:42 (specimen) Unknown EST AM EST Resulting Agency Comment Spec In Lab Yuan Webber MD CHEMISTRY ORDERABLES Performing Organization Address City/State/[place] [address] (ABNORMAL) Potassium (07/09/2017 2:30 AM EST) P athologist Signature Potassium 5.1 (H) 3.5 - 5.0 [facility] mmol/L [facility] Comment: Please [...] Organization Address City/State/[place] [address] (ABNORMAL) Hemogram (07/09/2017 2:30 AM EST) Analysis Performed At Patho logist Time Signature WBC 12.5 (H) 4.0 - 9.5 [facility] x10(3)/[facility] LABORATORY RBC 3.38 (L) 4.58 - [facility] 5.54 [facility] x10(6)/[facility] LABORATORY Hemoglobin 10.1 (L) 13.7 - [facility] 16.5 gm/dL [facility] Hematocrit 30.3 (L) 40.5 - [facility] 48.5 % [facility] MCV 89.6 82.9 - [facility] 93.1 [facility] LABORATORY MCH 29.9 27.5 - KATALINA RYAN 32.1 pg [facility] MCHC 33.3 32.0 - [facility] 35.7 gm/dL [facility] Platelets 127 (L) 145 - 357 [facility] x10(3)/[facility] LABORATORY RDWSD 49.3 (H) 36.0 - KATALINA RYAN 45.0 [facility] LABORATORY RDWCV 15.2 (H) 11.4 - [facility] RYAN 13.8 % [facility] MPV 9.9 7.6 - 12.9 [facility] LABORATORY nRBC % Auto 0.0 % [facility] LABORATORY nRBC Abs Auto 0.000 0.000 - KATALINA RYAN 0.000 [facility] x10(3)/[facility] LABORATORY Specimen Anatomical Collection Method Collection Time Receive d Time (Source) Location / / Volume Laterality Blood specimen 07/09/2017 2:30 AM 017 2:41 (specimen) EST AM EST Resulting Agency Comment Spec In Lab Yuan Webber MD HEMATOLOGY ORDERABLES Performing Organization Address City/[facility]/ZIP Code Phon e Number [address] POCT Glucose (07/09/2017 2:10 AM EST) P athologist Signature POC Glucose 169 65 - 199 KATALINA ZHAORYAN mg/dL [facility] Comment: [...] City/[facility]/[place] [address] POCT Glucose (07/09/2017 1:01 AM EST) P athologist Signature POC Glucose 173 65 - 199 KATALINA ZHAORYAN mg/dL [facility] Comment: [...] City/[facility]/ZIP Code Phon e Number [address] Blood culture (07/09/2017 12:40 AM EST) [facility] Method Time Signature Blood Culture No growth KATALINA VILLAREALCOCK at 5 days. [facility] Specimen Anatomical Collection Method Collection Time Receive d Time (Source) Location / / Volume Laterality Blood specimen STRUCTURE OF RIGHT 07/09/2017 12:40 3:58 (specimen) UPPER LIMB / AM EST AM EST Unknown Resulting Agency Comment Spec In Lab Yuan Webber MD MICROBIOLOGY - BLOOD ORDERAB LES Performing Organization Address City/State/[place] [address] Blood culture (07/09/2017 12:30 AM EST) [facility] [employer] Method Time Signature Blood Culture No growth KATALINA DAVIS at 5 days. [facility] Specimen Anatomical Collection Method Collection Time Receive d Time (Source) Location / / Volume Laterality Blood specimen STRUCTURE OF LEFT 07/09/2017 12:30 1211/2016 3:59 (specimen) UPPER LIMB / AM EST AM EST Unknown Resulting Agency Comment Spec In Lab Yuan Webber MD MICROBIOLOGY - BLOOD ORDERAB LES Performing Organization Address City/[facility]/[place] [address] (ABNORMAL) Urinalysis Microscopic Exam [...] Organization Address City/State/[place] [address] (ABNORMAL) Urinalysis with reflex Culture (07/09/2017 12:05 AM EST) [facility] [employer] Method Time Signature Glucose UA Negative Negative KATALINA DAVIS mg/dL [facility] Protein UA 30 (A) Negative [facility] Bilirubin UA Negative Negative [facility] Comment: Clinical correlation [...] CENTER LABORATORY Ketones UA Negative Negative mg/dL [facility] Nitrite UA Negative Negative [facility] Leukocytes UA Negative Negative [facility] LABORATORY Appearance UA Hazy (A) Clear [facility] Spec Hannacroix UA 1.025 1.002 - 1.030 [facility] Color UA Yellow Yellow [facility] Culture Reflexed No [facility] Specimen (Source) Anatomical Collection Method Collection Time Re ceived Time Location / / Volume Laterality Urine specimen 07/09/2017 12:05 7 obtained via AM EST 12:39 AM EST indwelling urinary catheter (specimen) Resulting Agency Comment Spec In Lab Yuan Webber MD URINE ORDERABLES Performing Organization Address City/[facility]/[place] [address] POCT Glucose (07/08/2017 11:01 PM EST) P athologist Signature POC Glucose 191 65 - 199 [facility] mg/dL [facility] Comment: [...] Phon [place] [address] POCT Glucose (07/08/2017 10:04 PM EST) athologist Signature POC Glucose 198 65 - 199 [facility] mg/dL [facility] Comment: Supplemental [...] Number [address] Prepare Albumin 5% in [...] 195 65 - 199 KATALINA RYAN mg/dL [facility] Comment: [...] Organization Address City/State/[place] [address] (ABNORMAL) POCT Glucose (07/08/2017 7:13 PM EST) P athologist Signature POC Glucose 220 (H) 65 - 199 [facility]dL [facility] Comment: [...] Signature POC Glucose 147 65 - 199 [facility] Comment: Supplemental ranges: <140 mg/dL before meals <180 mg/dL all other times of the day Specimen Anatomical Collection Method Collection Time Receive d Time (Source) Location / / Volume Laterality Blood specimen 07/08/2017 5:04 PM 017 5:04 (specimen) EST PM EST Yuan Webber MD POINT OF CARE TEST ORDERABLE S Performing Organization Address City/State/[place] [address] (ABNORMAL) BLOOD GAS 2 ARTERIAL (07/08/2017 4:13 PM EST) Analysis Performed At Patho logist Time Signature pH Art 7.38 7.35 - [facility] 7.45 [facility] pCO2 Art 36 35 - 45 [facility] LABORATORY pO2 Art 91 85 - 104 [facility] LABORATORY HCO3 Art 20.9 20.0 - [facility] 26.0 [facility] mmol/L [facility] LABORATORY BE Art -4.2 (L) -3.0 - 3.0 [facility] mmol/L [facility] Hgb Blood Gas 11.7 (L) 13.7 - [facility] 16.5 gm/dL [facility] O2HB Art 95.1 94.0 - [facility] 97.0 % [facility] COHB Art 0.6 % [facility] PF Ratio Art 228 [facility] Specimen Anatomical Collection Method Collection Time Receive d Time (Source) Location / / Volume Laterality Blood specimen 07/08/2017 4:13 PM 017 4:13 (specimen) EST PM EST Yuan Webber MD CHEMISTRY ORDERABLES Performing Organization Address City/State/[place] [address] POCT Glucose (07/08/2017 4:01 PM EST) P athologist Signature POC Glucose 148 65 - 199 [facility] mg/dL [facility] Comment: Supplemental [...] 118 65 - 199 [facility] ZHAORYAN mg/dL [facility] Comment: [...] 129 65 - 199 K[facility]AL[facility] ZHAORYAN mg/dL [facility] Comment: [...] Organization Address City/State/[place] [address] POCT Glucose (07/08/2017 11:53 AM EST) athologist Signature POC Glucose 156 65 - 199 KATALINA ZHAORYAN mg/dL [facility] Comment: [...] Signature POC Glucose 181 65 - 199 [facility]dL [facility] Comment: [...] City/[facility]/[place] [address] (ABNORMAL) POCT Glucose (07/08/2017 9:24 AM EST) athologist Signature POC Glucose 203 (H) 65 - 199 [facility] Comment: Supplemental ranges: <140 mg/dL before meals <180 mg/dL all other times of the day Specimen Anatomical Collection Method Collection Time Receive d Time (Source) Location / / Volume Laterality Blood specimen 07/08/2017 9:24 AM 017 9:24 (specimen) EST AM EST Yuan Webber MD POINT OF CARE TEST ORDERABLE S Performing Organization Address City/State/[place] [address] APTT (07/08/2017 8:40 AM [...] City/[facility]/[place] [address] (ABNORMAL) Prothrombin Time (07/08/2017 [...] City/[facility]/[place] [address] (ABNORMAL) POCT Glucose (07/08/2017 7:38 AM EST) P athologist Signature POC Glucose 232 (H) 65 - 199 [facility] mg/dL [facility] Comment: Supplemental [...] City/[facility]/[place] [address] (ABNORMAL) POCT Glucose (07/08/2017 7:07 AM EST) athologist Signature POC Glucose 234 (H) 65 - 199 [facility]dL [facility] Comment: [...] Organization Address City/State/[place] [address] (ABNORMAL) POCT Glucose (07/08/2017 6:04 AM EST) athologist Signature POC Glucose 225 (H) 65 - 199 [facility]/dL [facility] Comment: [...] Organization Address City/State/[place] [address] (ABNORMAL) POCT Glucose (07/08/2017 5:31 AM EST) athologist Signature POC Glucose 216 (H) 65 - 199 [facility]dL [facility] Comment: Supplemental ranges: <140 mg/dL before meals <180 mg/dL all other times of the day Specimen Anatomical Collection Method Collection Time Receive d Time (Source) Location / / Volume Laterality Blood specimen 07/08/2017 5:31 AM 017 5:31 (specimen) EST AM EST Yuan Webber MD POINT OF CARE TEST ORDERABLE S Performing Organization Address City/State/[place] [address] (ABNORMAL) POCT Glucose (07/08/2017 4:52 AM EST) P athologist Signature POC Glucose 257 (H) 65 - 199 [facility] mg/dL [facility] Comment: Supplemental ranges: <140 mg/dL before meals <180 mg/dL all other times of the day Specimen Anatomical Collection Method Collection Time Receive d Time (Source) Location / / Volume Laterality Blood specimen 07/08/2017 4:52 AM 017 4:52 (specimen) EST AM EST Daphne Shahid MD POINT OF CARE TEST ORDERABLE S Performing Organization Address City/State/[place] [address] (ABNORMAL) BLOOD GAS 2 ARTERIAL (07/08/2017 4:04 AM EST) Analysis Performed At Patho logist Time Signature pH Art 7.30 (L) 7.35 - [facility] 7.45 [facility] pCO2 Art 41 35 - 45 [facility] LABORATORY pO2 Art 83 (L) 85 - 104 [facility] LABORATORY HCO3 Art 19.6 (L) 20.0 - [facility] 26.0 [facility] mmol/[facility] LABORATORY BE Art -6.8 (L) -3.0 - 3.0 [facility] mmol/L [facility] Hgb Blood Gas 12.2 (L) 13.7 - [facility] 16.5 gm/dL [facility] O2HB Art 93.5 (L) 94.0 - [facility] 97.0 % [facility] COHB Art 0.4 % [facility] Comment: Noted by stringed instrument repairer. FIO2 Art 40 % [facility] PF Ratio Art 208 [facility] Specimen Anatomical Collection Method Collection Time Receive d Time (Source) Location / / Volume Laterality Blood specimen 07/08/2017 4:04 AM 017 4:04 (specimen) EST AM EST Daphne Shahid MD CHEMISTRY ORDERABLES Performing Organization Address City/[facility]/ZIP Code Phon e Number [address] [...] Neutr Abs (ANC) 16.07 (H) 1.70 - [facility] 6.10 [facility] x10(3)/[facility] L LABORATORY Lymphocytes % 3.5 % [facility]ORY Lymphocytes Abs 0.6 (L) 0.9 - 3.2 [facility] x10(3)/[facility] LABORATORY Monocytes % 10.4 % [facility]ORY Monocyte Abs 2.0 (H) 0.3 - 0.9 [facility] x10(3)/[facility] LABORATORY Eosinophils % 0.0 % [facility] Eosinophils Abs 0.0 0.0 - 0.4 [facility] x10(3)/[facility] LABORATORY Basophils % 0.1 % [facility] Basophils Abs 0.0 0.0 - 0.1 [facility] x10(3)/[facility] LABORATORY Immature Gran % [...] Organization Address City/State/[place] [address] (ABNORMAL) Hemogram (07/08/2017 4:00 AM EST) Analysis Performed At Patho logist Time Signature WBC 18.8 (H) 4.0 - 9.5 [facility] x10(3)/[facility] LABORATORY RBC 4.00 (L) 4.58 - [facility] 5.54 [facility] x10(6)/[facility] LABORATORY Hemoglobin 11.9 (L) 13.7 - [facility] 16.5 gm/dL [facility] Hematocrit 35.9 (L) 40.5 - [facility] 48.5 % [facility] MCV 89.8 82.9 - [facility] 93.1 [facility] LABORATORY MCH 29.8 27.5 - [facility] OLIVASCK 32.1 pg [facility] MCHC 33.1 32.0 - [facility]AL[facility] DAVIS 35.7 gm/dL [facility] Platelets 232 145 - 357 [facility] x10(3)/[facility] LABORATORY RDWSD 47.6 (H) 36.0 - [facility] DAVIS 45.0 [facility] LABORATORY RDWCV 14.5 (H) 11.4 - [facility] 13.8 % [facility] MPV 9.5 7.6 - 12.9 [facility] LABORATORY nRBC % Auto 0.0 % [facility]ATORY nRBC Abs Auto 0.000 0.000 - [facility] 0.000 [facility] x10(3)/[facility] LABORATORY Specimen Anatomical Collection Method Collection Time Receive d Time (Source) Location / / Volume Laterality Blood specimen 07/08/2017 4:00 AM 017 4:09 (specimen) EST AM EST Resulting Agency Comment Spec In Lab Yuan Webber MD HEMATOLOGY ORDERABLES Performing Organization Address City/State/ZIP Code Phon e Number [place] [id number] (ABNORMAL) Electrolytes panel (07/08/2017 4:00 AM EST) P athologist Signature Sodium 139 135 - 145 [facility] mmol/L [facility] Potassium 4.7 3.5 - 5.0 [facility] mmol/L [facility] Comment: result rechecked-JLK Please [...] CO2 21 (L) 22 - 31 mmol/L [facility] Anion Gap 14 5 - 15 mmol/L KATALINA RYAN [facility] LABORATORY Specimen Anatomical Collection Method Collection Time Receive d Time (Source) Location / / Volume Laterality Blood specimen 07/08/2017 4:00 AM 017 4:10 (specimen) EST AM EST Resulting Agency Comment Spec In Lab Yuan Webber MD CHEMISTRY ORDERABLES Performing Organization Address City/State/[place] [address] (ABNORMAL) Cardiac Enzymes (LEB/CGP) (07/08/2017 4:00 AM EST) P athologist Signature Troponin-T 1.88 (H) 0.00 - [facility] 0.00 ng/mL [facility] Comment: [...] Samples for cTnT testing should be obtai pedr oluis serially upon first assessment and again 3 to 6 hours later. If the clinica l suspicion is high and previous samples have been negative an additional sample may be indicated. Reference: Third Jamieson Definition of Myocardial Infarction. Journal of the [place] [employer] 2012;60:1581-98 CK, Total [...] Number [address] (ABNORMAL) Glucose, fasting (07/08/2017 4:00 AM EST) P athologist Signature Glucose 287 (H) 65 - 99 [facility] Fasting mg/dL [facility] Comment: [...] of Diabetes Mellitus, Position Statement from the [place] [employer]. ??Diabete s Care, Volume 33, Supplement 1, Jul 2009 Specimen Anatomical Collection Method Collection Time Receive d Time (Source) Location / / Volume Laterality Blood specimen 07/08/2017 4:00 AM 017 4:09 (specimen) EST AM EST Resulting Agency Comment Spec In Lab Yuan Webber MD CHEMISTRY ORDERABLES Performing Organization Address City/[facility]/[place] [address] (ABNORMAL) Creatinine (07/08/2017 4:00 AM EST) Analysis Performed At Patho logist Time Signature Creatinine 1.55 (H) 0.80 - [facility] 1.50 mg/dL [facility] Estimated GFR 44 (L) >=60 [facility] Comment: The reported eGFR should be multiplied b y 1.2 for patients. The MDRD is not an appropriate measure o f renal function for patients with body mass extremes or in patients with acute kidney failure. http://[employer]/DHadelitakdep http://[employer]/DHMCnkf Specimen Anatomical Collection Method Collection Time Receive d Time (Source) Location / / Volume Laterality Blood specimen 07/08/2017 4:00 AM 017 4:09 (specimen) EST AM EST Resulting Agency Comment Spec In Lab Yuan Webber MD CHEMISTRY ORDERABLES Performing Organization Address City/[facility]/ZIP Code Phon e Number [address] BUN (07/08/2017 4:00 AM EST) P athologist Signature BUN 16 10 - 20 KATALINA RYAN mg/dL [facility] Specimen Anatomical Collection Method Collection Time Receive d Time (Source) Location / / Volume Laterality Blood specimen 07/08/2017 4:00 AM 017 4:09 (specimen) EST AM EST Resulting Agency Comment Spec In Lab Yuan Webber MD CHEMISTRY ORDERABLES Performing Organization Address City/[facility]/[place] [address] (ABNORMAL) POCT Glucose (07/08/2017 3:00 AM EST) athologist Signature POC Glucose 273 (H) 65 - 199 [facility]/dL [facility] Comment: Supplemental [...] City/[facility]/ZIP Code Phon e Number [address] (ABNORMAL) POCT Glucose (07/08/2017 1:57 AM EST) P athologist Signature POC Glucose 288 (H) 65 - 199 [facility] mg/dL [facility] Comment: Supplemental [...] City/[facility]/[place] [address] (ABNORMAL) POCT Glucose (07/08/2017 1:01 AM EST) athologist Signature POC Glucose 315 (H) 65 - 199 [facility] mg/dL [facility] Comment: Supplemental [...] City/[facility]/[place] [address] (ABNORMAL) BLOOD GAS 2 ARTERIAL (07/08/2017 12:09 AM EST) athologist Signature pH Art 7.26 7.35 - [facility] (Critical) 7.45 [facility] Comment: Noted by stringed instrument repairer. pCO2 Art 41 35 - [...] [facility] COHB Art 0.2 % [facility] [...] [facility] Comment: Noted by stringed instrument repairer. FIO2 Art 40 % [facility] PF Ratio Art 240 [facility] Specimen Anatomical Collection Method Collection Time Receive d Time (Source) Location / / Volume Laterality Blood specimen Arterial Draw / 07/08/2017 12:09 2016 5:31 (specimen) Unknown AM EST AM EST Resulting Agency Comment Spec In Lab Samy Maldonado MD CHEMISTRY ORDERABLES Performing Organization Address City/State/[place] [address] (ABNORMAL) POCT Glucose (07/07/2017 10:56 PM EST) P athologist Signature POC Glucose 292 (H) 65 - 199 [facility] mg/dL [facility] Comment: Supplemental [...] Organization Address City/State/[place] [address] (ABNORMAL) BLOOD GAS 2 ARTERIAL (07/07/2017 10:04 PM EST) athologist Signature pH Art 7.22 7.35 - [facility] (Critical) 7.45 [facility] Comment: Noted by stringed instrument repairer. pCO2 Art 42 35 - [...] [facility] COHB Art 0.7 % [facility] [...] [facility] Comment: Noted by stringed instrument repairer. FIO2 Art 40 % [facility] PF Ratio Art 235 [facility] Specimen Anatomical Collection Method Collection Time Receive d Time (Source) Location / / Volume Laterality Blood specimen 07/07/2017 10:04 7 (specimen) PM EST 10:04 PM EST Daphne Shahid MD CHEMISTRY ORDERABLES Performing Organization Address City/[facility]/ZIP Code Phon e Number [address] (ABNORMAL) Hemoglobin (07/07/2017 10:00 PM EST) P athologist Signature Hemoglobin 12.8 (L) 13.7 - [facility] 16.5 gm/dL [facility] Specimen Anatomical Collection Method Collection Time Receive d Time (Source) Location / / Volume Laterality Blood specimen 07/07/2017 10:00 7 (specimen) PM EST 10:13 PM EST Resulting Agency Comment Spec In Lab Yuan Webber MD HEMATOLOGY ORDERABLES Performing Organization Address City/[facility]/[place] [address] (ABNORMAL) Potassium (07/07/2017 10:00 PM EST) P athologist Signature Potassium 3.4 (L) 3.5 - 5.0 [facility] mmol/L [facility] Comment: Please [...] Organization Address City/State/[place] [address] (ABNORMAL) POCT Glucose (07/07/2017 8:49 PM EST) P athologist Signature POC Glucose 241 (H) 65 - 199 [facility] mg/dL [facility] Comment: Supplemental [...] City/[facility]/[place] [address] Prepare Albumin 5% in 250 mL (07/07/2017 8:03 PM EST) athologist Signature Dispensed? Yes [facility] Specimen Anatomical Collection Method Collection Time Receive d Time (Source) Location / / Volume Laterality Blood specimen No Charge / 07/07/2017 8:03 PM 017 8:04 (specimen) Unknown EST PM EST Resulting Agency Comment Spec In Lab Michael BROWN BLOOD BANK ORDERABLES Performing Organization Address City/[facility]/[place] [address] EKG 12 Lead (07/07/2017 7:17 PM EST) Component Value Ref Range Test Analysis Performed Pathologis t Method Time At Signature Ventricular rate 75 BPM MUSE SYSTEM Atrial Rate 75 BPM MUSE SYSTEM P-R Interval 168 ms MUSE SYSTEM QRS Duration 104 ms MUSE SYSTEM Q-T Interval 462 ms MUSE SYSTEM QTC Calculated 515 ms MUSE SYSTEM (Bezet) Calculated P [place] 52 degrees MUSE SYSTEM Calculated R [place] -40 degrees MUSE SYSTEM Calculated T [place] 39 degrees MUSE SYSTEM INTERPRETATION Normal sinus [...] athologist Signature pH Art 7.21 7.35 - [facility] (Critical) 7.45 [facility] Comment: Noted by stringed instrument repairer. pCO2 Art 50 (H) 35 [...] [facility] COHB Art 0.5 % [facility]. [...] mmol/L [facility] Comment: Noted by stringed instrument repairer. Please note: Patients with WBC [...] [facility] Comment: Noted by stringed instrument repairer. FIO2 Art 100 % [facility] PF Ratio Art 238 [facility] Specimen Anatomical Collection Method Collection Time Receive d Time (Source) Location / / Volume Laterality Blood specimen 07/07/2017 6:57 PM 017 6:57 (specimen) EST PM EST Daphne Shahid MD CHEMISTRY ORDERABLES Performing Organization Address City/State/[place] [address] (ABNORMAL) BLOOD GAS 2 ARTERIAL (07/07/2017 5:31 PM EST) P athologist Signature pH Art 7.29 7.35 - [facility] (Critical) 7.45 [facility] Comment: Noted by stringed instrument repairer. pCO2 Art 48 (H) 35 [...] [facility] COHB Art 0.3 % [facility]. [...] City/[facility]/ZIP Code Phon e Number [address] Fibrinogen (07/07/2017 5:30 PM EST) P athologist Signature Fibrinogen 224 180 - 510 [facility] mg/dL [facility] Comment: Called by: JEET, [...] ORDERABLES Performing Organization Address City/[facility]/ZIP [facility] Phon e Number [address] LABORATORY [...] HEMATOLOGY ORDERABLES Performing Organization Address City/[facility] [place] [address] (ABNORMAL) Prothrombin Time (07/07/2017 [...] HEMATOLOGY ORDERABLES Performing Organization Address City/[facility] [place] [address] (ABNORMAL) Hemogram (07/07/2017 5:30 PM EST) P athologist Signature WBC 19.6 (H) 4.0 - 9.5 [facility] x10(3)/[facility] LABORATORY RBC 3.08 (L) 4.58 - [facility] 5.54 [facility] x10(6)/[facility] LABORATORY Hemoglobin 9.2 (L) 13.7 - [facility] 16.5 gm/dL [facility] Hematocrit 28.0 (L) 40.5 - [facility] 48.5 % [facility] Comment: This result has been called to MONICA MORAN by DONALD GROSSMAN on 07 07 2017 at 1759, and has been read back. MCV 90.9 82.9 - 93.1 [facility] LABORATORY MCH 29.9 27.5 - 32.1 pg [facility] LABORATORY MCHC 32.9 32.0 - 35.7 gm/dL [facility] LABORATORY Platelets 155 145 - 357 x10(3)/[facility] LABORATORY RDWSD 46.5 (H) 36.0 - 45.0 [facility] LABORATORY RDWCV 14.1 (H) 11.4 - 13.8 % [facility]OR[facility] MPV 9.5 7.6 - 12.9 [facility] LABORATORY nRBC % Auto 0.0 % [facility]ATORY nRBC Abs Auto 0.000 0.000 - 0.000 x10(3)/[facility] LABORATORY Specimen Anatomical Collection Method Collection Time Receive d Time (Source) Location / / Volume Laterality Blood specimen 07/07/2017 5:30 PM 017 5:34 (specimen) EST PM EST Resulting Agency Comment Spec In Lab Yifan Perez MD HEMATOLOGY ORDERABLES Performing Organization Address City/State/[place] [address] Prepare Platelets, Apheresis (07/07/2017 5:00 PM EST) P athologist Signature Dispensed? Yes [facility] Specimen Anatomical Collection Method Collection Time Receive d Time (Source) Location / / Volume Laterality Blood specimen 07/07/2017 5:00 PM 017 4:58 (specimen) EST PM EST Daphne Shahid MD BLOOD BANK ORDERABLES Performing Organization Address City/State/[place] [address] Platelet count (07/07/2017 4:55 PM EST) P athologist Signature Platelets 177 145 - 357 [facility]ATAL[facility] DAVIS x10(3)/[facility] LABORATORY Plat Immature 1.5 0.0 - 7.4 [facility] DAVIS % % [facility] Comment: Limitation of the Immature Platelet Frac tion (IPF)-May be less reliable when the platelet count is less than [id number] L due to statistical imprecision. The IPF [...] in a decreased state of production. References: [employer] The Clinical Value of the Immature Platelet Fraction (IPF) in Cell Recovery Document Number [id number] 12/2010 [employer] The Role of the Imm ature [...] Organization Address City/State/[place] [address] (ABNORMAL) Hemoglobin and Hematocrit, blood (07/07/2017 4:55 PM EST) P athologist Signature Hemoglobin 9.1 (L) 13.7 - 16.5 [facility] DAVIS gm/dL [facility] Comment: This result [...] Organization Address City/State/[place] [address] (ABNORMAL) BLOOD GAS 2 ARTERIAL (07/07/2017 4:38 PM EST) Analysis Performed At Patho logist Time Signature pH Art 7.37 7.35 - [facility] 7.45 [facility] pCO2 Art 44 35 - 45 [facility] mmHg [facility]ATORY pO2 Art 322 (H) 85 - 104 [facility] LABORATORY HCO3 Art 24.9 20.0 - [facility] 26.0 [facility] mmol/L [facility] LABORATORY BE Art -0.4 -3.0 - 3.0 [facility] mmol/L [facility] Hgb Blood Gas 10.1 (L) 13.7 - [facility] 16.5 gm/dL [facility] O2HB Art 98.7 (H) 94.0 - [facility] 97.0 % [facility] COHB Art 0.1 % [facility] Comment: Noted by stringed instrument repairer. Note: ??Total bilirubin higher than [...] Organization Address City/State/[place] [address] (ABNORMAL) BLOOD GAS 2 VENOUS (07/07/2017 4:06 PM EST) Analysis Performed At Patho logist Time Signature pH Cody 7.31 (L) 7.32 - [facility] 7.42 [facility] LABORATORY pCO2 Cody 47 41 - 51 [facility] LABORATORY pO2 Cody 53 (H) 25 - 40 [facility] LABORATORY HCO3 Cody 22.7 mmol/L [facility] LABORATORY BE Cody -3.7 mmol/L [facility] LABORATORY Hgb Blood Gas 10.2 (L) 13.7 - [facility] 16.5 gm/dL [facility] LABORATORY O2HB Cody 81.0 % [facility] [...] [facility] Comment: Noted by stringed instrument repairer. Note: ??Total bilirubin higher than 20 m g/dL may lead to falsely low ionized calcium. CL Whole Blood 100 98 - 107 mmol/L [facility] LABORATORY Gluc Whole Bld 231 (H) 65 - 199 mg/dL [facility] LABORATORY Comment: Diabetes: >=200 mg/dL plus symp toms Lactate WB 1.1 0.5 - 2.2 mmol/L [facility] LABORATORY BGas Source Venous [facility] LABORATORY Specimen Anatomical Collection Method Collection Time Receive d Time (Source) Location / / Volume Laterality Blood specimen 07/07/2017 4:06 PM 017 4:06 (specimen) EST PM EST Daphne Shahid MD CHEMISTRY ORDERABLES Performing Organization Address City/State/[place] [address] (ABNORMAL) BLOOD GAS 2 ARTERIAL (07/07/2017 4:05 PM EST) Analysis Performed At Patho logist Time Signature pH Art 7.36 7.35 - [facility] 7.45 [facility] LABORATORY pCO2 Art 40 35 - 45 [facility] mmHg [facility] LABORATORY pO2 Art 282 (H) 85 - 104 [facility] LABORATORY HCO3 Art 22.1 20.0 - [facility] 26.0 [facility] mmol/L [facility] LABORATORY BE Art -3.4 (L) -3.0 - 3.0 [facility] mmol/L [facility] LABORATORY Hgb Blood Gas 10.2 (L) 13.7 - [facility] 16.5 gm/dL [facility] LABORATORY O2HB Art 98.4 (H) 94.0 - [facility] 97.0 % [facility] LABORATORY COHB Art 0.3 % [facility] [...] [facility] Comment: Noted by stringed instrument repairer. Note: ??Total bilirubin higher than [...] Organization Address City/State/[place] [address] (ABNORMAL) BLOOD GAS 2 ARTERIAL (07/07/2017 2:29 PM EST) Analysis Performed At Patho logist Time Signature pH Art 7.43 7.35 - [facility] 7.45 [facility] LABORATORY pCO2 Art 36 35 - 45 [facility] LABORATORY pO2 Art 221 (H) 85 - 104 [facility] LABORATORY HCO3 Art 23.2 20.0 - [facility] 26.0 [facility] mmol/[facility] LABORATORY BE Art -1.2 -3.0 - 3.0 [facility] mmol/L [facility] LABORATORY Hgb Blood Gas 13.9 13.7 - [facility] 16.5 gm/dL [facility] LABORATORY O2HB Art 97.8 (H) 94.0 - [facility] 97.0 % [facility] LABORATORY COHB Art 1.1 % [facility] [...] Organization Address City/State/[place] [address] Prepare Coag Factors (Non-Hemophilia) [...] Number [address] Prepare RBC (07/07/2017 1:10 PM EST) P athologist Signature Dispensed? Yes [facility] LABORATORY Specimen Anatomical Collection Method Collection Time Receive d Time (Source) Location / / Volume Laterality Blood specimen 07/07/2017 1:10 PM 017 1:05 (specimen) EST PM EST Daphne Shahid MD BLOOD BANK ORDERABLES Performing Organization Address City/State/[place] [address] POCT Glucose (07/07/2017 11:56 AM EST) P athologist Signature POC Glucose 188 65 - 199 [facility] mg/dL [facility] LABORATORY Comment: Supplemental [...] City/[facility]/[place] [address] POCT Glucose (07/07/2017 11:05 AM EST) P athologist Signature POC Glucose 168 65 - 199 [facility] mg/dL [facility] LABORATORY Comment: Supplemental ranges: <140 mg/dL before meals <180 mg/dL all other times of the day Specimen Anatomical Collection Method Collection Time Receive d Time (Source) Location / / Volume Laterality Blood specimen 07/07/2017 11:05 7 (specimen) AM EST 11:05 AM EST Daphne Shahid MD POINT OF CARE TEST ORDERABLE S Performing Organization Address City/State/[place] [address] POCT Glucose (07/07/2017 10:02 AM EST) athologist Signature POC Glucose 191 65 - 199 [facility]ORYAN mg/dL [facility] LABORATORY Comment: [...] Signature POC Glucose 178 65 - 199 [facility] RYAN mg/dL [facility] LABORATORY [...] Organization Address City/State/[place] [address] POCT Glucose (07/07/2017 7:03 AM EST) athologist Signature POC Glucose 188 65 - 199 [facility] RYAN mg/dL [facility] LABORATORY [...] Organization Address City/State/[place] [address] (ABNORMAL) POCT Glucose (07/07/2017 6:17 AM EST) athologist Signature POC Glucose 207 (H) 65 - 199 [facility] mg/dL [facility] LABORATORY Comment: Supplemental [...] City/State/ZIP Code Phon e Number [place] [id number] HOSPITAL LAB[address]ORY Drive Differential, Automated (07/07/2017 5:15 AM EST) [facility] Neutrophils % 69.7 % [facility] LABORATORY Neutr Abs (ANC) 5.32 1.70 - [facility] 6.10 [facility] x10(3)/[facility] LABORATORY Lymphocytes % 16.3 % [facility] LABORATORY Lymphocytes Abs 1.2 0.9 - 3.2 [facility] x10(3)/[facility] LABORATORY Monocytes % 10.5 % [facility] LABORATORY Monocyte Abs 0.8 0.3 - 0.9 [facility] x10(3)[facility] LABORATORY Eosinophils % 2.5 % [facility] LABORATORY Eosinophils Abs 0.2 0.0 - 0.4 [facility] x10(3)/[facility] LABORATORY Basophils % 0.7 % [facility] LABORATORY Basophils Abs 0.0 0.0 - 0.1 [facility] x10(3)/[facility] LABORATORY Immature Gran [...] Melisa Gran Abs 0.02 0.00 - 0.04 x10(3)/[facility] LABORATORY Specimen Anatomical Collection Method Collection Time Receive d Time (Source) Location / / Volume Laterality Blood specimen 07/07/2017 5:15 AM 017 5:34 (specimen) EST AM EST Resulting Agency Comment Spec In Lab Daphne Shahid MD HEMATOLOGY ORDERABLES Performing Organization Address City/[facility]/[place] [address] (ABNORMAL) Hemogram (07/07/2017 5:15 AM EST) Analysis Performed At Patho logist Time Signature WBC 7.6 4.0 - 9.5 [facility] x10(3)/[facility] LABORATORY RBC 4.82 4.58 - [facility] 5.54 [facility] x10(6)/[facility] LABORATORY Hemoglobin 14.4 13.7 - [facility] 16.5 gm/dL [facility] LABORATORY Hematocrit 42.1 40.5 - [facility] 48.5 % [facility] LABORATORY MCV 87.3 82.9 - [facility] 93.1 [facility] LABORATORY MCH 29.9 27.5 - [facility] 32.1 pg [facility] LABORATORY MCHC 34.2 32.0 - [facility] 35.7 gm/dL [facility] LABORATORY Platelets 188 145 - 357 [facility] x10(3)/[facility] LABORATORY RDWSD 45.1 (H) 36.0 - [facility] 45.0 [facility] LABORATORY RDWCV 14.3 (H) 11.4 - [facility] 13.8 % [facility] LABORATORY MPV 9.4 7.6 - 12.9 [facility] LABORATORY nRBC % Auto 0.0 % [facility] LABORATORY nRBC Abs Auto 0.000 0.000 - [facility] 0.000 [facility] x10(3)/[facility] LABORATORY Specimen Anatomical Collection Method Collection Time Receive d Time (Source) Location / / Volume Laterality Blood specimen 07/07/2017 5:15 AM 017 5:34 (specimen) EST AM EST Resulting Agency Comment Spec In Lab Daphne Shahid MD HEMATOLOGY ORDERABLES Performing Organization Address City/State/[place] [address] (ABNORMAL) APTT (07/07/2017 5:15 [...] City/[facility]/[place] [address] Magnesium (07/07/2017 5:15 AM EST) athologist Signature Magnesium 0.94 0.69 - 1.07 [facility] mmol/L [facility] LABORATORY Specimen Anatomical Collection Method Collection Time Receive d Time (Source) Location / / Volume Laterality Blood specimen 07/07/2017 5:15 AM 017 5:34 (specimen) EST AM EST Resulting Agency Comment Spec In Lab Daphne Shahid MD CHEMISTRY ORDERABLES Performing Organization Address City/[facility]/[place] [address] (ABNORMAL) Basic Metabolic Panel (non-fasting) (07/07/2017 5:15 AM EST) P athologist Signature Glucose Lvl 203 (H) 65 - 199 [facility] mg/dL [facility] LABORATORY Comment: Diabetes: [...] or in patients with acute kidney failure. http://[employer]/DHnkdep http://[employer]/DHMCnkf Specimen Anatomical Collection Method Collection Time Receive d Time (Source) Location / / Volume Laterality Blood specimen 07/07/2017 5:15 AM 017 5:34 (specimen) EST AM EST Resulting Agency Comment Spec In Lab Daphne Shahid MD CHEMISTRY ORDERABLES Performing Organization Address City/State/[place] [address] (ABNORMAL) Cardiac Enzymes (LEB/CGP) (07/07/2017 5:15 AM EST) P athologist Signature Troponin-T 2.07 (H) 0.00 - [facility] 0.00 ng/mL [facility] LABORATORY Comment: [...] additional sample may be indicated. Reference: Third Jamieson Definition of Myocardial Infarction. Journal of the [place] [employer] 2012;60:1581-98 CK, Total 88 0 - 200 unit/L [facility] LABORATORY Specimen Anatomical Collection Method Collection Time Receive d Time (Source) Location / / Volume Laterality Blood specimen 07/07/2017 5:15 AM 017 5:34 (specimen) EST AM EST Resulting Agency Comment Spec In Lab Daphne Shahid MD CHEMISTRY ORDERABLES Performing Organization Address City/[facility]/ZIP Code Phon e Number [address] POCT Glucose (07/07/2017 5:01 AM EST) athologist Signature POC Glucose 182 65 - 199 [facility] mg/dL [facility] LABORATORY Comment: Supplemental ranges: <140 mg/dL before meals <180 mg/dL all other times of the day Specimen Anatomical Collection Method Collection Time Receive d Time (Source) Location / / Volume Laterality Blood specimen 07/07/2017 5:01 AM 017 5:01 (specimen) EST AM EST Daphne Shahid MD POINT OF CARE TEST ORDERABLE S Performing Organization Address City/[facility]/ZIP [facility] [place] Number [address] POCT Glucose (07/07/2017 4:08 AM EST) athologist Signature POC Glucose 199 65 - 199 [facility] mg/dL [facility] LABORATORY Comment: [...] 188 65 - 199 [place] RYAN mg/dL [facility] LABORATORY Comment: [...] Organization Address City/State/[place] [address] (ABNORMAL) POCT Glucose (07/07/2017 2:08 AM EST) athologist Signature POC Glucose 200 (H) 65 - 199 [place] RYAN mg/dL [facility] LABORATORY Comment: [...] [address] LAB[address] Drive (ABNORMAL) POCT Glucose (07/07/2017 1:31 AM EST) athologist Signature POC Glucose 209 (H) 65 - 199 [place] RYAN mg/dL [facility] LABORATORY Comment: [...] Organization Address City/State/[place] [address] XR Chest PA or [...] Signature POC Glucose 161 65 - 199 [facility] mg/dL [facility] LABORATORY Comment: Supplemental ranges: <140 mg/dL before meals <180 mg/dL all other times of the day Specimen Anatomical Collection Method Collection Time Receive d Time (Source) Location / / Volume Laterality Blood specimen 07/07/2017 12:07 7 (specimen) AM EST 12:07 AM EST Daphne Shahid MD POINT OF CARE TEST ORDERABLE S Performing Organization Address City/State/[place] [address] (ABNORMAL) APTT (07/07/2017 12:00 [...] City/[facility]/[place] [address] POCT Glucose (07/06/2017 9:55 PM EST) athologist Signature POC Glucose 109 65 - 199 [facility] mg/dL [facility] LABORATORY Comment: Supplemental [...] City/[facility]/[place] [address] POCT Glucose (07/06/2017 9:04 PM EST) athologist Signature POC Glucose 120 65 - 199 [facility] RYAN mg/dL [facility] LABORATORY [...] City/[facility]/[place] [address] POCT Glucose (07/06/2017 7:45 PM EST) athologist Signature POC Glucose 158 65 - 199 [facility] mg/dL [facility] LABORATORY Comment: Supplemental [...] City/[facility]/[place] [address] Potassium (07/06/2017 7:40 PM EST) athologist Signature Potassium 3.9 3.5 - 5.0 [facility] mmol/L [facility] LABORATORY Comment: Please [...] City/[facility]/[place] [address] (ABNORMAL) Cardiac Enzymes (LEB/CGP) (07/06/2017 7:40 PM EST) athologist Signature Troponin-T 2.27 (H) 0.00 - [facility] 0.00 ng/mL [facility] LABORATORY Comment: [...] additional sample may be indicated. Reference: Third Jamieson Definition of Myocardial Infarction. Journal of the [place] [employer] 2012;60:1581-98 CK, Total 93 0 - 200 unit/L [facility] LABORATORY Specimen Anatomical Collection Method Collection Time Receive d Time (Source) Location / / Volume Laterality Blood specimen 07/06/2017 7:40 PM 017 7:52 (specimen) EST PM EST Resulting Agency Comment Spec In Lab Daphne Shahid MD CHEMISTRY ORDERABLES Performing Organization Address City/State/[place] [address] (ABNORMAL) POCT Glucose (07/06/2017 7:13 PM EST) athologist Signature POC Glucose 200 (H) 65 - 199 [facility] mg/dL [facility] LABORATORY Comment: Supplemental [...] City/[facility]/[place] [address] (ABNORMAL) APTT (07/06/2017 6:15 [...] City/[facility]/[place] [address] (ABNORMAL) POCT Glucose (07/06/2017 6:03 PM EST) athologist Signature POC Glucose 236 (H) 65 - 199 [facility] mg/dL [facility] LABORATORY Comment: Supplemental [...] City/[facility]/[place] [address] (ABNORMAL) POCT Glucose (07/06/2017 5:01 PM EST) athologist Signature POC Glucose 235 (H) 65 - 199 [facility] RYAN mg/dL [facility] LABORATORY [...] Organization Address City/State/[place] [address] (ABNORMAL) POCT Glucose (07/06/2017 4:06 PM EST) athologist Signature POC Glucose 202 (H) 65 - 199 [place] RYAN mg/dL [facility] LABORATORY Comment: Supplemental ranges: <140 mg/dL before meals <180 mg/dL all other times of the day Specimen Anatomical Collection Method Collection Time Receive d Time (Source) Location / / Volume Laterality Blood specimen 07/06/2017 4:06 PM 017 4:06 (specimen) EST PM EST Daphne Sahhid MD POINT OF CARE TEST ORDERABLE S Performing Organization Address City/State/[place] [address] POCT Glucose (07/06/2017 2:59 PM EST) athologist Signature POC Glucose 178 65 - 199 [place]AL[place] RYAN mg/dL [facility] LABORATORY Comment: [...] Organization Address City/State/[place] [address] (ABNORMAL) Cardiac Enzymes (LEB/CGP) (07/06/2017 2:10 PM EST) athologist Signature Troponin-T 2.34 (H) 0.00 - [facility] 0.00 ng/mL [facility] LABORATORY Comment: [...] additional sample may be indicated. Reference: Third Jamieson Definition of Myocardial Infarction. Journal of the [place] [employer] 2012;60:1581-98 CK, Total 101 0 - 200 unit/L [facility] LABORATORY Specimen Anatomical Collection Method Collection Time Receive d Time (Source) Location / / Volume Laterality Blood specimen 07/06/2017 2:10 PM 017 2:26 (specimen) EST PM EST Resulting Agency Comment Spec In Lab Daphne Shahid MD CHEMISTRY ORDERABLES Performing Organization Address City/State/[place] [address] POCT Glucose (07/06/2017 2:08 PM EST) P athologist Signature POC Glucose 192 65 - 199 [facility] mg/dL [facility] LABORATORY Comment: Supplemental [...] Glucose 162 65 - 199 [facility] mg/dL [facility] LABORATORY Comment: Supplemental [...] City/[facility]/ZIP Code Phon e Number [address] POCT Glucose (07/06/2017 12:05 PM EST) athologist Signature POC Glucose 196 65 - 199 [facility] mg/dL [facility] LABORATORY Comment: Supplemental ranges: <140 mg/dL before meals <180 mg/dL all other times of the day Specimen Anatomical Collection Method Collection Time Receive d Time (Source) Location / / Volume Laterality Blood specimen 07/06/2017 12:05 7 (specimen) PM EST 12:05 PM EST Daphne Shahid MD POINT OF CARE TEST ORDERABLE S Performing Organization Address City/State/[place] [address] EKG 12 Lead (07/06/2017 12:00 PM EST) Component Value Ref Range Test Analysis Performed Pathologis t Method Time At Signature Ventricular rate 91 BPM MUSE SYSTEM Atrial Rate 91 BPM MUSE SYSTEM P-R Interval 140 ms MUSE SYSTEM QRS Duration 94 ms MUSE SYSTEM Q-T Interval 394 ms MUSE SYSTEM QTC Calculated 484 ms MUSE SYSTEM (Bezet) Calculated P [place] 36 degrees MUSE SYSTEM Calculated R [place] -19 degrees MUSE SYSTEM Calculated T [place] 104 degrees MUSE SYSTEM INTERPRETATION Normal sinus rhythm MUSE SYSTEM 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) ST & T wave abnormality, consider lateral ischemia Abnormal ECG When compared with ECG of 05-JUL-2017 20:39, No significant change was found Confirmed by MD Verma Gregory A. ([id number]) on 07/06/2017 5:07:33 PM Specimen Anatomical Collection [...] City/[facility]/[place] [address] Antibody screen (07/06/2017 12:00 PM EST) [facility] Method Time Signature Ab Screen Negative [facility] LABORATORY Expires at 07/09/2017 [facility] 235 on: [facility] LABORATORY Specimen Anatomical Collection Method Collection Time Receive d Time (Source) Location / / Volume Laterality Blood specimen 07/06/2017 12:00 7 (specimen) PM EST 12:24 PM EST Resulting Agency Comment Spec In Lab Daphne Shahid MD BLOOD BANK ORDERABLES Performing Organization Address City/[facility]/[place] [address] ABO/Rh Typing (07/06/2017 12:00 [...] Organization Address City/State/[place] [address] Prothrombin Time (07/06/2017 11:24 [...] City/[facility]/[place] [address] (ABNORMAL) APTT (07/06/2017 11:24 [...] Organization Address City/State/[place] [address] POCT Glucose (07/06/2017 11:02 AM EST) athologist Signature POC Glucose 187 65 - 199 [facility] mg/dL [facility] LABORATORY Comment: Supplemental [...] Signature POC Glucose 193 65 - 199 [facility] mg/dL [facility] LABORATORY [...] 182 65 - 199 [place] RYAN mg/dL [facility] LABORATORY Comment: Supplemental ranges: <140 mg/dL before meals <180 mg/dL all other times of the day Specimen Anatomical Collection Method Collection Time Receive d Time (Source) Location / / Volume Laterality Blood specimen 07/06/2017 9:25 AM 017 9:25 (specimen) EST AM EST Daphne Sahhid MD POINT OF CARE TEST ORDERABLE S Performing Organization Address City/State/[place] [address] (ABNORMAL) Cardiac Enzymes (LEB/CGP) (07/06/2017 8:10 AM EST) athologist Signature Troponin-T 2.26 (H) 0.00 - [facility] 0.00 ng/mL [facility] LABORATORY Comment: [...] additional sample may be indicated. Reference: Third Jamieson Definition of Myocardial Infarction. Journal of the [place] [employer] 2012;60:1581-98 CK, Total 124 0 - 200 unit/L [facility] LABORATORY Specimen Anatomical Collection Method Collection Time Receive d Time (Source) Location / / Volume Laterality Blood specimen 07/06/2017 8:10 AM 017 8:23 (specimen) EST AM EST Resulting Agency Comment Spec In Lab Daphne Shahid MD CHEMISTRY ORDERABLES Performing Organization Address City/State/[place] [address] Magnesium (07/06/2017 8:10 AM EST) athologist Signature Magnesium 0.84 0.69 - 1.07 [facility] mmol/L [facility] LABORATORY Specimen Anatomical Collection Method Collection Time Receive d Time (Source) Location / / Volume Laterality Blood specimen 07/06/2017 8:10 AM 017 8:21 (specimen) EST AM EST Resulting Agency Comment Spec In Lab Daphne Shahid MD CHEMISTRY ORDERABLES Performing Organization Address City/[facility]/[place] [address] (ABNORMAL) Basic Metabolic Panel (non-fasting) (07/06/2017 8:10 AM EST) P athologist Signature Glucose Lvl 199 65 - 199 [facility] mg/dL [facility] LABORATORY Comment: Diabetes: [...] or in patients with acute kidney failure. http://[employer]/DHnkdep http://[employer]/DHMCnkf Specimen Anatomical Collection Method Collection Time Receive d Time (Source) Location / / Volume Laterality Blood specimen 07/06/2017 8:10 AM 017 8:21 (specimen) EST AM EST Resulting Agency Comment Spec In Lab Daphne Shahid MD CHEMISTRY ORDERABLES Performing Organization Address City/[facility]/[place] [address] POCT Glucose (07/06/2017 7:34 AM EST) P athologist Signature POC Glucose 198 65 - 199 [facility]dL [facility] LAB[facility]ATORY Comment: [...] Signature POC Glucose 181 65 - 199 [facility] mg/dL [facility] LABORATORY Comment: [...] Organization Address City/State/[place] [address] XR Chest PA or [...] POC Glucose 172 65 - 199 [facility] mg/dL [facility] LABOR[facility]ORY Comment: Supplemental ranges: <140 mg/dL before meals <180 mg/dL all other times of the day Specimen Anatomical Collection Method Collection Time Receive d Time (Source) Location / / Volume Laterality Blood specimen 07/06/2017 6:21 AM 017 6:21 (specimen) EST AM EST Daphne Shahid MD POINT OF CARE TEST ORDERABLE S Performing Organization Address City/State/[place] [address] POCT Glucose (07/06/2017 5:08 AM EST) athologist Signature POC Glucose 154 65 - 199 [facility] mg/dL [facility] [facility]PITAL LABORATORY Comment: Supplemental [...] Signature POC Glucose 142 65 - 199 [facility]dL [facility] Comment: [...] City/[facility]/ZIP Code Phon e Number [address] POCT Glucose (07/06/2017 3:00 AM EST) athologist Signature POC Glucose 116 65 - 199 [facility]dL [facility]OR[facility] Comment: Supplemental [...] athologist Signature Potassium 3.9 3.5 - 5.0 [facility] mmol/L [facility] LABORATORY Comment: Please [...] Organization Address City/State/[place] [address] Differential, Automated (07/06/2017 2:20 AM EST) athologist Signature Neutrophils % 72.9 % [facility] LABORATORY Neutr Abs (ANC) 5.53 1.70 - [facility] 6.10 [facility] x10(3)[facility] LABORATORY Lymphocytes % 16.4 % [facility] Lymphocytes Abs 1.2 0.9 - 3.2 [facility] x10(3)/[facility] LABORATORY Monocytes % 9.4 % [facility] Monocyte Abs 0.7 0.3 - 0.9 [facility] x10(3)/[facility] LABORATORY Eosinophils % 0.5 % [facility] Eosinophils Abs 0.0 0.0 - 0.4 [facility] x10(3)[facility] LABORATORY Basophils % 0.4 % [facility] Basophils Abs 0.0 0.0 - 0.1 [facility] x10(3)/[facility] LABORATORY Immature Gran % 0.40 % [facility] Comment: Immature granulocytes(IG's)percentage an d absolute count will include metamyelocytes, myelocytes, and promyelo cytes. Blood smears from CBCs yielding IG's will be scanned manually for concor dance. If this scan disagrees with the automated IG or if promyelocytes are not ed, a manual differential will be performed. Melisa Gran Abs 0.03 0.00 - 0.04 x10(3)/[facility] LAB[facility]ORY Specimen Anatomical Collection Method Collection Time Receive d Time (Source) Location / / Volume Laterality Blood specimen 07/06/2017 2:20 AM 017 2:33 (specimen) EST AM EST Resulting Agency Comment Spec In Lab Daphne Shahid MD HEMATOLOGY ORDERABLES Performing Organization Address City/State/[place] [address] (ABNORMAL) Hemogram (07/06/2017 2:20 AM EST) Analysis Performed At Patho logist Time Signature WBC 7.6 4.0 - 9.5 [facility] x10(3)/[facility] LABORATORY RBC 4.52 (L) 4.58 - [facility] RYAN 5.54 [facility] x10(6)/[facility] LABORATORY Hemoglobin 13.4 (L) 13.7 - [facility] 16.5 gm/dL [facility] LABORATORY Hematocrit 39.7 (L) 40.5 - [facility] 48.5 % [facility] LABORATORY MCV 87.8 82.9 - [facility] R[facility]AN 93.1 [facility] LABORATORY MCH 29.6 27.5 - [place] RYAN 32.1 pg [facility] LABORATORY MCHC 33.8 32.0 - [facility] 35.7 gm/dL [facility] LABORATORY Platelets 189 145 - 357 [facility] x10(3)/[facility] LABORATORY RDWSD 45.6 (H) 36.0 - [facility] 45.0 [facility] LABORATORY RDWCV 14.3 (H) 11.4 - [facility] R[facility]AN 13.8 % [facility] LABORATORY MPV 9.1 7.6 - 12.9 [facility] nRBC % Auto 0.0 % [facility] LABORATORY nRBC Abs Auto 0.000 0.000 - [place] [employer] 0.000 [facility] x10(3)/[facility] LABORATORY Specimen Anatomical Collection Method Collection Time Receive d Time (Source) Location / / Volume Laterality Blood specimen 07/06/2017 2:20 AM 017 2:33 (specimen) EST AM EST Resulting Agency Comment Spec In Lab Daphne Shahid MD HEMATOLOGY ORDERABLES Performing Organization Address City/State/ZIP Code Phon [place] [address] (ABNORMAL) APTT (07/06/2017 2:20 [...] Organization Address City/State/[place] [address] POCT Glucose (07/06/2017 2:20 AM EST) athologist Signature POC Glucose 115 65 - 199 [facility] mg/dL [facility] LABORATORY Comment: Supplemental ranges: <140 mg/dL before meals <180 mg/dL all other times of the day Specimen Anatomical Collection Method Collection Time Receive d Time (Source) Location / / Volume Laterality Blood specimen 07/06/2017 2:20 AM 017 2:20 (specimen) EST AM EST Daphne Shahid MD POINT OF CARE TEST ORDERABLE S Performing Organization Address City/State/[place] [address] (ABNORMAL) Cardiac Enzymes (LEB/CGP) (07/06/2017 2:20 AM EST) athologist Signature Troponin-T 2.13 (H) 0.00 - [facility] 0.00 ng/mL [facility]ORATORY Comment: [...] additional sample may be indicated. Reference: Third Jamieson Definition of Myocardial Infarction. Journal of the [place] [employer] 2012;60:1581-98 CK, Total 129 0 - 200 unit/L [facility] LABORATORY Specimen Anatomical Collection Method Collection Time Receive d Time (Source) Location / / Volume Laterality Blood specimen 07/06/2017 2:20 AM 017 2:33 (specimen) EST AM EST Resulting Agency Comment Spec In Lab Daphne Shahid MD CHEMISTRY ORDERABLES Performing Organization Address City/State/[place] [address] (ABNORMAL) Hemoglobin A1c (07/06/2017 [...] into estimated average glucose values. ??Diabetes Care 2008:31(8):3862-2812. Specimen Anatomical Collection Method Collection Time Receive d Time (Source) Location / / Volume Laterality Blood specimen 07/06/2017 2:20 AM 017 2:34 (specimen) EST AM EST Resulting Agency Comment Spec In Lab Daphne Shahid MD CHEMISTRY ORDERABLES Performing Organization Address City/State/[place] [address] (ABNORMAL) Lipid Panel (07/06/2017 2:20 AM EST) [facility] Method Time Signature Chol, Total 150 <=239 [place] mg/dL [facility] Triglycerides 129 <=199 [place] mg/dL [facility] HDL 32 (L) >=40 [place] mg/dL [facility] LDL Cholesterol 92 <=190 [place] mg/dL [facility] Chol/HDL Ratio 4.7 ratio [place] [facility] Lipid See Note [place] Hernandes [facility] Comment: Lipid management should be guided by a p atient? s ASCVD risk, goals and preferences. ACC/AHA Guidelines recommend high intens ity statin if clinical ASCVD or LDL greater than or equal to 190 mg/dL. [email or web address] Adults aged 40-75 with LDL 70-189 mg/dL should have their 10 year ASCVD risk estimated with the ACC/AHA ASCVD risk es timator http://tools.acc.org/VJOME-Bctq-Ldflvusg r/ Statin should be discussed if risk [...] Organization Address City/State/[place] [address] POCT Glucose (07/06/2017 1:09 AM EST) P athologist Signature POC Glucose 121 65 - 199 [facility] mg/dL [facility] LABORATORY Comment: Supplemental [...] City/State/ZIP Code [place] [address] POCT Glucose (07/06/2017 12:06 AM EST) athologist Signature POC Glucose 147 65 - 199 [facility] mg/dL [facility] Comment: Supplemental ranges: <140 mg/dL before meals <180 mg/dL all other times of the day Specimen Anatomical Collection Method Collection Time Receive d Time (Source) Location / / Volume Laterality Blood specimen 07/06/2017 12:06 7 (specimen) AM EST 12:06 AM EST Daphne Shahid MD POINT OF CARE TEST ORDERABLE S Performing Organization Address City/State/[place] [address] (ABNORMAL) POCT Glucose (07/05/2017 10:56 PM EST) athologist Signature POC Glucose 200 (H) 65 - 199 [facility] mg/dL [facility]OR[facility] Comment: Supplemental ranges: <140 mg/dL before meals <180 mg/dL all other times of the day Specimen Anatomical Collection Method Collection Time Receive d Time (Source) Location / / Volume Laterality Blood specimen 07/05/2017 10:56 7 (specimen) PM EST 10:56 PM EST Daphne Shahid MD POINT OF CARE TEST ORDERABLE S Performing Organization Address City/State/[place] [address] (ABNORMAL) POCT Glucose (07/05/2017 10:05 PM EST) athologist Signature POC Glucose 225 (H) 65 - 199 [facility] mg/dL [facility] Comment: Supplemental ranges: <140 mg/dL before meals <180 mg/dL all other times of the day Specimen Anatomical Collection Method Collection Time Receive d Time (Source) Location / / Volume Laterality Blood specimen 07/05/2017 10:05 7 (specimen) PM EST 10:05 PM EST Daphne Shahid MD POINT OF CARE TEST ORDERABLE S Performing Organization Address City/State/[place] [address] (ABNORMAL) POCT Glucose (07/05/2017 9:02 PM EST) P athologist Signature POC Glucose 301 (H) 65 - 199 [place] R[facility]AN mg/dL [facility] LABORATORY Comment: [...] Code Phon e Number [facility] [address] XR Chest PA [...] 474 ms MUSE SYSTEM (Bezet) Calculated P [place] 50 degrees MUSE SYSTEM Calculated R [place] -28 degrees MUSE SYSTEM Calculated T [place] 90 degrees MUSE SYSTEM INTERPRETATION Sinus tachycardia [...] Neutr Abs (ANC) 9.08 (H) 1.70 - [facility] 6.10 [facility] x10(3)/[facility] L LABORATORY Lymphocytes % 7.0 % [facility] LABORATORY Lymphocytes Abs 0.7 (L) 0.9 - 3.2 [facility] x10(3)/[facility] LABORATORY Monocytes % 3.7 % [facility] LABORATORY Monocyte Abs 0.4 0.3 - 0.9 [facility] x10(3)/[facility] LABORATORY Eosinophils % 0.1 % [facility] LABORATORY Eosinophils Abs 0.0 0.0 - 0.4 [facility] x10(3)/[facility] LABORATORY Basophils % 0.2 % [facility] LABORATORY Basophils Abs 0.0 0.0 - 0.1 [facility] x10(3)/[facility] LABORATORY Immature Gran % [...] Organization Address City/State/[place] [address] (ABNORMAL) Hemogram (07/05/2017 8:20 PM EST) Analysis Performed At Patho logist Time Signature WBC 10.3 (H) 4.0 - 9.5 [facility] x10(3)/[facility] LABORATORY RBC 4.64 4.58 - [facility] RYAN 5.54 [facility] x10(6)/[facility] LABORATORY Hemoglobin 14.1 13.7 - [facility] 16.5 gm/dL [facility] LABORATORY Hematocrit 40.8 40.5 - [place] RYAN 48.5 % [facility] LABORATORY MCV 87.9 82.9 - [facility] 93.1 [facility] LABORATORY MCH 30.4 27.5 - [place] RYAN 32.1 pg [facility] LABORATORY MCHC 34.6 32.0 - [facility] 35.7 gm/dL [facility] LABORATORY Platelets 204 145 - 357 [facility] x10(3)/[facility] LABORATORY RDWSD 46.1 (H) 36.0 - [place] RYAN 45.0 [facility] LABORATORY RDWCV 14.5 (H) 11.4 - [facility] 13.8 % [facility] LABORATORY MPV 9.7 7.6 - 12.9 [facility] LABORATORY nRBC % Auto 0.0 % [facility] LABORATORY nRBC Abs Auto 0.000 0.000 - [place] [facility]HA[facility]AN 0.000 [facility] x10(3)/[facility] LABORATORY Specimen Anatomical Collection Method Collection Time Receive d Time (Source) Location / / Volume Laterality Blood specimen 07/05/2017 8:20 PM 017 8:27 (specimen) EST PM EST Resulting Agency Comment Spec In Lab Daphne Shahid MD HEMATOLOGY ORDERABLES Performing Organization Address City/[facility]/ZIP Code Phon e Number [address] [...] ORDERABLES Performing Organization Address City/[facility]/ZIP [facility] [place] [address] (ABNORMAL) Cardiac Enzymes (LEB/CGP) (07/05/2017 8:20 PM EST) P athologist Signature Troponin-T 2.11 (H) 0.00 - [facility] 0.00 ng/mL [facility] LABORATORY Comment: [...] additional sample may be indicated. Reference: Third Jamieson Definition of Myocardial Infarction. Journal of the [place] [employer] 2012;60:1581-98 CK, Total 149 0 - 200 unit/L [facility] LABORATORY Specimen Anatomical Collection Method Collection Time Receive d Time (Source) Location / / Volume Laterality Blood specimen 07/05/2017 8:20 PM 017 8:27 (specimen) EST PM EST Resulting Agency Comment Spec In Lab Daphne Shahid MD CHEMISTRY ORDERABLES Performing Organization Address City/[facility]/[place] [address] (ABNORMAL) Magnesium (07/05/2017 8:20 PM EST) P athologist Signature Magnesium 0.68 (L) 0.69 - 1.07 [facility] mmol/L [facility] LABORATORY Specimen Anatomical Collection Method Collection Time Receive d Time (Source) Location / / Volume Laterality Blood specimen 07/05/2017 8:20 PM 017 8:27 (specimen) EST PM EST Resulting Agency Comment Spec In Lab Daphne Shahid MD CHEMISTRY ORDERABLES Performing Organization Address City/State/[place] [address] (ABNORMAL) Basic Metabolic Panel (non-fasting) (07/05/2017 8:20 PM EST) athologist Signature Glucose Lvl 321 (H) 65 - 199 [facility] mg/dL [facility] LABORATORY Comment: Diabetes: [...] or in patients with acute kidney failure. http://Sportcut[employer] Solutions/DHnkdep http://[facility] Directions/DHMCnkf Specimen Anatomical Collection Method Collection Time Receive d Time (Source) Location / / Volume Laterality Blood specimen 07/05/2017 8:20 PM 017 8:27 (specimen) EST PM EST Resulting Agency Comment Spec In Lab Daphne Shahid MD CHEMISTRY ORDERABLES Performing Organization Address City/State/[place] [address] (ABNORMAL) POCT Glucose (07/05/2017 7:32 PM EST) athologist Signature POC Glucose 296 (H) 65 - 199 [facility] mg/dL [facility] LABORATORY Comment: Supplemental [...] Address City/State/ZIP Code [place] [address] CARDIAC CATHETERIZATION (07/05/2017 6:47 PM EST) Anatomical Region Laterality Modality Other Specimen (Source) Anatomical Location Collection Method / Collectio n Time Received Time / Laterality Volume Narrative 07/05/2017 7:27 PM EST ?[facility] ? Cardiac Cathete rization/Intervention Report ? Patient Name: Natalya, Gregory ? Procedure Date: 07/05/2017 ? A #: [id number] ? Primary Physician: Clarisa, Jet T ? Case #: [id number] ? File Name: [id number] ? Catheterization Order Number: [id number] ? [facility] ? Final Report [place], [place] ? Patient Name: ? Gregory Natalya ?ID#: ?[id number] ? : ?1945 ? Procedure Date: ? [...] presented with: non -STEMI (w/i 7 days). [place] ?Cardiovascular Society angina c lass was IV. [...] site angio graphy and IABP insertion in catheterization laboratory technician. ? Jet Mckenna, M.D. ? Electronically Signed by: Jet Sampson DeVrizack s, M.D. ? Report Finalized: 07/05/2017 ??19:23 ? Report Last Ammended: 10/26/2017 ??10:29 ? Procedure Note Jet Mckenna MD - 10/26/2017Formatt ing of this note might be different from the original. [facility] Cardiac Catheterization/Intervention Re port Patient Name: Gregory Hoang Procedure Date: 07/05/2017 A #: [id number] Primary Physician: Jet Mckenna Case #: [id number] File Name: [id number] Catheterization Order Number: [id number] [facility] Final Report [place], [place] Patient Name: Gregory Hoang ID#: [id number] : 1945 Procedure Date: July 05, [...] presented with: non-STEMI ( w/i 7 days). [place] Cardi[employer] Society angina class was IV. No [...] site angiograph y and IABP insertion in catheterization laboratory technician. Jet Mckenna M.D. Electronically Signed [...] E ? (Age): 1945(72y) Med Rec#: ? [id number] ?Sex: ?M ? Site Loc: ? [facility] ?Ht / Wt: ??173(cm)/86(kg) Pt. Loc: ?[facility] ? BSA: ?2 Study Date: ?? 07/05/2017 ?Pt. Type: Inpatient Tape: ? Referring: Daphne Shahid ([id number]) Referring: MANDA ALCANTAR Reading: Blade Preston ([id number]) Flight Surveyor: Dayami Paula BA, [facility] [...] E-wave Vmax ?0.8 ?m/sec ? MV deceleration [id number] ?msec ? MV A-wave Vmax ?0.8 ?m/sec [...] ? Mid-Inferior ?Akinetic ? Mid-Inferoseptal ?Hypokinetic ? Russell-Septal ? Akinetic ? Russell-Anterior ? Hypokinetic ? Russell-Lateral ?Hypokinetic ? Russell-Inferior ? Akinetic ? Russell-Tip ?Akinetic ? This report has been electronically sign ed by: _ Blade Preston MD ? 07/06/2017 08 :53:15 Images reviewed and interpretation verif ied [facility] Cardiac Ultrasound Laboratory Procedure Note Blade Preston MD - 07/06/2017Formatt ing of this note might be different from the original. Procedure: Transthoracic Echocardiogram Patient: NATALYA MCBRIDE(Age): [birth year]72y) Med Rec#: [id number] Sex: M [place] [facility] [place]t / Wt: 173(cm)/86(kg) Pt. Loc: U BSA: 2 Study Date: 07/05/2017 Pt. Type: Inpatie nt Tape: Referring: Daphne Shahid ([id number]) Referring: MANDA ALCANTAR Reading: Blade Preston ([id number]) Flight Surveyor: Dayami Paula BA, [facility] [...] MV E-wave Vmax 0.8 m/sec MV deceleration [id number] msec MV A-wave Vmax 0.8 m/sec MV [...] Hypokinetic Mid-Posterolateral Hypokinetic Mid-Inferior Akinetic Mid-Inferoseptal Hypokinetic Russell-Septal Akinetic Russell-Anterior Hypokinetic Russell-Lateral Hypokinetic Russell-Inferior Akinetic Russell-Tip Akinetic This report has been electronically sign ed by: _ Blade Preston MD 07/06/2017 08:53:15 Images reviewed and interpretation verif ied [facility] Cardiac Ultrasound Laboratory Daphne Shahid MD ECHO ORDERABLES Differential, Automated (07/05/2017 4:55 PM EST) athologist Signature Neutrophils % 77.0 % [facility] LABORATORY Neutr Abs (ANC) 5.26 1.70 - [facility] 6.10 [facility] x10(3)[facility] Lymphocytes % 13.3 % [facility] Lymphocytes Abs 0.9 0.9 - 3.2 [facility] x10(3)/[facility] LABORATORY Monocytes % 8.2 % [facility] Monocyte Abs 0.6 0.3 - 0.9 [facility] x10(3)/[facility] LABORATORY Eosinophils % 0.7 % [facility] Eosinophils Abs 0.0 0.0 - 0.4 [facility] x10(3)[facility] LABORATORY Basophils % 0.4 % [facility] Basophils Abs 0.0 0.0 - 0.1 [facility] x10(3)/[facility] LABORATORY Immature Gran % 0.40 % [facility] Comment: Immature granulocytes(IG's)percentage an d absolute count will include metamyelocytes, myelocytes, and promyelo cytes. Blood smears from CBCs yielding IG's will be scanned manually for concor dance. If this scan disagrees with the automated IG or if promyelocytes are not ed, a manual differential will be performed. Melisa Gran Abs 0.03 0.00 - 0.04 x10(3)/[facility] Specimen Anatomical Collection Method Collection Time Receive d Time (Source) Location / / Volume Laterality Blood specimen 07/05/2017 4:55 PM 017 5:24 (specimen) EST PM EST Resulting Agency Comment Spec In Lab Daphne Shahid MD HEMATOLOGY ORDERABLES Performing Organization Address City/State/[place] [address] (ABNORMAL) Hemogram (07/05/2017 4:55 PM EST) Analysis Performed At Patho logist Time Signature WBC 6.8 4.0 - 9.5 [facility] RYAN x10(3)/[facility] LABORATORY RBC 4.67 4.58 - [place] RYAN 5.54 [facility] x10(6)/[facility] LABORATORY Hemoglobin 14.0 13.7 - [facility] 16.5 gm/dL [facility] LABORATORY Hematocrit 41.0 40.5 - [facility] RYAN 48.5 % [facility] LABORATORY MCV 87.8 82.9 - [facility] RYAN 93.1 [facility] LABORATORY MCH 30.0 27.5 - [place] RYAN 32.1 pg [facility] LABORATORY MCHC 34.1 32.0 - [place] RYAN 35.7 gm/dL [facility] LABORATORY Platelets 197 145 - 357 [facility](3[facility] LABORATORY RDWSD 46.4 (H) 36.0 - [facility] RYAN 45.0 [facility] LABORATORY RDWCV 14.5 (H) 11.4 - [facility] RYAN 13.8 % [facility] LABORATORY MPV 9.7 7.6 - 12.9 [facility] nRBC % Auto 0.0 % [facility] LABORATORY nRBC Abs Auto 0.000 0.000 - [facility] RYAN 0.000 [facility] x10(3)/[facility] LABORATORY Specimen Anatomical Collection Method Collection Time Receive d Time (Source) Location / / Volume Laterality Blood specimen 07/05/2017 4:55 PM 017 5:24 (specimen) EST PM EST Resulting Agency Comment Spec In Lab Daphne Shahid MD HEMATOLOGY ORDERABLES Performing Organization Address City/State/[place] [address] (ABNORMAL) Cardiac Enzymes (LEB/CGP) (07/05/2017 4:55 PM EST) P athologist Signature Troponin-T 1.69 (H) 0.00 - [place] [facility] 0.00 ng/mL [facility] LABORATORY [...] additional sample may be indicated. Reference: Third Jamieson Definition of Myocardial Infarction. Journal of the [place] [employer] 2012;60:1581-98 CK, Total 191 0 - 200 unit/L [facility] LABORATORY Specimen Anatomical Collection Method Collection Time Receive d Time (Source) Location / / Volume Laterality Blood specimen 07/05/2017 4:55 PM 017 5:56 (specimen) EST PM EST Resulting Agency Comment Spec In Lab Daphne Shahid MD CHEMISTRY ORDERABLES Performing Organization Address City/State/ZIP Code Phon e Number [place] [id number] HOSP[address] LAB[address]ORY Drive (ABNORMAL) pro-Brain Natriuretic Peptide (07/05/2017 4:55 PM EST) P athologist Signature ProBNP 1,598 (H) <=125 [facility] pg/mL [facility] LABORATORY Specimen Anatomical Collection Method Collection Time Receive d Time (Source) Location / / Volume Laterality Blood specimen 07/05/2017 4:55 PM 017 5:24 (specimen) EST PM EST Resulting Agency Comment Spec In Lab Daphne Shahid MD CHEMISTRY ORDERABLES Performing Organization Address City/State/ZIP Code Phon e Number [address] Magnesium (07/05/2017 4:55 PM EST) P athologist Signature Magnesium 0.78 0.69 - 1.07 [facility] mmol/L [facility] LABORATORY Specimen Anatomical Collection Method Collection Time Receive d Time (Source) Location / / Volume Laterality Blood specimen 07/05/2017 4:55 PM 017 5:24 (specimen) EST PM EST Resulting Agency Comment Spec In Lab Daphne Shahid MD CHEMISTRY ORDERABLES Performing Organization Address City/[facility]/[place] [address] (ABNORMAL) Basic Metabolic Panel (non-fasting) (07/05/2017 4:55 PM EST) P athologist Signature Glucose Lvl 230 (H) 65 - 199 [facility] mg/dL [facility] LABORATORY Comment: Diabetes: [...] or in patients with acute kidney failure. http://Sportcut.[employer] Solutions/DHnkdep http://[facility] Directions/MCnkf Specimen Anatomical Collection Method Collection Time Receive d Time (Source) Location / / Volume Laterality Blood specimen 07/05/2017 4:55 PM 017 5:24 (specimen) EST PM EST Resulting Agency Comment Spec In Lab Daphne Shahid MD CHEMISTRY ORDERABLES Performing Organization Address City/[facility] Code Phon e Number [address] [...] HEMATOLOGY ORDERABLES Performing Organization Address City/[facility] [place] [address] (ABNORMAL) POCT Glucose (07/05/2017 4:53 PM EST) P athologist Signature POC Glucose 208 (H) 65 - 199 [facility] mg/dL [facility] Comment: Supplemental [...] City/State/ZIP Code Phon e Number [place] [phone] EKG 12 Lead (07/05/2017 4:32 PM EST) Component Value Ref Range Test Analysis Performed Pathologis t Method Time At Signature Ventricular rate 97 BPM MUSE SYSTEM Atrial Rate 97 BPM MUSE SYSTEM P-R Interval 148 ms MUSE SYSTEM QRS Duration 96 ms MUSE SYSTEM Q-T Interval 364 ms MUSE SYSTEM QTC Calculated 462 ms MUSE SYSTEM (Bezet) Calculated P [place] 48 degrees MUSE SYSTEM Calculated R [place] -33 degrees MUSE SYSTEM Calculated T [place] 98 degrees MUSE SYSTEM INTERPRETATION Normal sinus [...] Coronary atherosclerosis of unspecified type of vessel, washoe or graft Cardiomyopathy, ischemic Other specified forms [...] in dextrose 5% 250 mL EST infusion (SUPERVISOR TREE FRUIT AND NUT FARMING) CONTINUOUS PRN, Starting on Wed07/05/17 at 1837, [...] documented in this encounter Care Teams Surgical Forceps Fabricator Relationship Specialty Start Date End Date Lovely Vicente MD PCP - General 04/16/[address] [place] [address] [address] [place] [address] documented as of this encounter
--- OUTSIDE RECORDS SUMMARY | 2022-05-20 09:42 | XMS_ITS | Encounter Summary ---
:1945 Author Organization [facility] [place] [address] Care Team Providers Name Role Phone Lovely Vicente MD Primary Care Provider Reason for Visit Reason Onset Date Comments Medication Refill 12/24/2016 Encounter Details Date Type Department Care Team Description 12/24/2016 Refill Endocrinology at [facility] Luz Stallings MD [facility] [place] [address] ENDOCRINOLOGY DEPT [phone] [place], [place] [address] (Wo rk) Social History Tobacco [...] [facility] er [address] [place] [address] (Wo rk) 05/28/2022 Laboratory Appointment Lab 05/28/2022 Office Visit Cardiology Zulma Dolan MD [facility] [place] [address] Liz Poole PA [facility] [place] [address] 06/10/2022 Office Visit Dermatology Laura Scherer MD [facility] DR [address]-DERMAT [place], [place] [address] (Wo rk) documented as of this encounter Visit Diagnoses Not on filedocumented in this encounter Care Teams Staff Development Coordinator Rn Relationship Specialty Start Date End Date Lovely Vicente MD PCP - General 04/16/[address] [place], [place] [address] documented as of this encounter
--- OUTSIDE RECORDS SUMMARY | 2022-05-20 09:42 | XMS_ITS | Encounter Summary ---
:1945 Author Organization [facility] [place] [address] Care Team Providers Name Role Phone Lovely Vicente MD Primary Care Provider Reason for Visit Reason Comments Nevus excision dysplastic nevus mi d upper abdomen Encounter Details Date Type Department Care Team Description 12/03/2016 Procedure visit Dermatology at [facility] Dysplastic nevus of Road MD Adrián trunk [address] [facility] [address] [facility] [phone] [address]-DERMATOLGY [place] [address] Social History Tobacco Use Types Packs/Day Years [...] Halima Cordero MD during the day at [phone] Nurse: Mira [phone] Amy After 5 PM and on weekends, please call the hospital number , and ask for the Huller Operator station examiner. documented in this encounter Progress Notes Halima Cordero MD - 12/10/2016 5:41 PM EDT Gwendolyn, Excision shows scar, there is no residual of the severely dysplastic nevus. Please notify patient and check on wound healing. Thank you, DTB Halima Cordero MD - 12/03/2016 3:00 PM EDT Images from the original note were not included. Dermatology Procedure note: Attending: Halima Cordero MD Yard Truck Driver: Mira James LPN Referring MD: Rigoberto Garcia [...] to call the clinic or the on-call inner layer scrubber tender over the weekend. ??? Name of Procedure? [...] Dolan MD [facility] [place], [place] [address] (Wo rk) 05/28/2022 Laboratory Appointment Lab 05/28/2022 Office Visit Cardiology Zulma Dolan [place] [address] Liz Poole PA [facility] [place] [address] 06/10/2022 Office Visit Dermatology Laura Scherer MD [facility] DR TE[address]MAT [place], [place] [address] (Wo rk) documented as of [...] Ref Test Analysis Performed At [facility] Method Time Signature Surgical [id number] ?Location: [facility] The signing pathologist has [...] Clinical Diagnosis: Dysplastic nevus, see previous pathology [id number] SPECIMEN PROCESSING A - Labeled/Fixative: Mid-upper abdomen, [...] Organization Address City/State/[place] [address] Specimen to Pathology (NON-OR) [...] Organization Address City/State/[place] [address] documented in this encounter Visit Diagnoses Diagnosis Dysplastic nevus of trunk Benign neoplasm of skin of trunk, except scrotum documented in this encounter Care Teams Sales And Operations Trainee Relationship Specialty Start Date End Date Lovely Vicente MD PCP - General 04/16/15 [address] [place] [address] documented as of this encounter
--- OUTSIDE RECORDS SUMMARY | 2022-05-20 09:42 | XMS_ITS | Encounter Summary ---
:1945 Author Organization [facility] [place] [address] Care Team Providers Name Role Phone Lovely Vicente MD Primary Care Provider Reason for Visit Reason Comments Skin Check Encounter Details Date Type Department Care Team Description 04/16/2015 Follow-Up Dermatology at [facility] x of melanoma of skin; Abdelrahman HOOPER MD Multiple benign nevi [address] [place] [address] [facility]-DER[facility]GY [place], [place] [address] (Wo rk) Social History Tobacco [...] Drum (ACCU-CHEK COMPACT TEST) Strip by [facility].(Non- Drug; Combo Route) [...] Zulma Dolan MD [facility] [place], [place] [address] (Wo rk) 05/28/2022 Laboratory Appointment Lab 05/28/2022 Office Visit Cardiology Zulma Dolan MD [facility] [place] [address] Liz Poole PA [facility] [place] [address] 06/10/2022 Office Visit Dermatology Laura Scherer MD [facility] DR [address]DERMAT [place], [place] [address] (Wo rk) documented as of this encounter Visit Diagnoses Diagnosis Hx of melanoma of skin Personal history of malignant melanoma o f skin Multiple benign nevi Benign neoplasm of skin, site unspecifie d documented in this encounter Care Teams Area Manager Relationship Specialty Start Date End Date Lovely Vicente MD PCP - General 04/16/[address] [place] [address] [address] [place] [address] documented as of this encounter
--- OUTSIDE RECORDS SUMMARY | 2022-05-20 09:42 | XMS_ITS | Encounter Summary ---
:1945 Author Organization [facility] [place] [address] Care Team Providers Name Role Phone MiyaAngela STACIE Primary Care Provider Reason for Visit Reason Comments Post Op voiding trial Encounter Details Date Type Department Care Team Description 04/05/2013 Office Visit Urology at [facility] Darryl Egan, UTI ([facility] MD tract infection) [facility] (Primary Dx) [place] [address] UROLOGY DEPT [phone] [place], [place] 0[address] Social History Tobacco Use Types [...] MD [facility] [place], [place] 0[address] (Wo rk) 05/28/2022 Laboratory Appointment Lab 05/28/2022 Office Visit Cardiology Zulma Dolan [place] [address] Liz Poole PA [facility] [place] [address] 06/10/2022 Office Visit Dermatology aLura Scherer MD [facility] DR [address] [place], [place] [address] (Wo rk) documented as of [...] At [facility] Method Time Signature Urine Culture CERNER ? Patient Name: GREGORY HOANG ? Ordered By: DARRYL EGAN [facility] ? MR#: [id number] ?LOC: ??5B ? /Sex: ??1945 (68 years), [...] S ? Patient: GREGORY HOANG ? MR#: [id number] ? FOOTNOTES ? (1) ? This organism [...] Organization Address City/State/[place] [address] RAKESH WALKER documented in this encounter Visit Diagnoses Diagnosis UTI (lower urinary tract infection) - Pr imary Urinary tract infection, site not specif ied documented in this encounter Care Teams Core Worker Relationship Specialty Start Date End Date Angela Holliday APRN PCP - General 01/25/13 04/15/[address] [place] [address] documented as of this encounter
--- OUTSIDE RECORDS SUMMARY | 2022-05-20 09:42 | XMS_ITS | Encounter Summary ---
:1945 Author Organization [facility] [place] [address] Care Team Providers Name Role Phone Angela Holliday APRN Primary Care Provider Reason for Visit Reason Comments Benign Prostatic Hypertrophy Encounter Details Date Type Department Care Team Description 11/28/2013 Follow[facility]Up [facility] at [facility] Blade Smith, Urinary retention (Primary D x); [facility] BPH (benign prostatic hyperplasia) [place] [address] UROLOGY DEPT [place], [place] [address] (Wo rk) Social History Tobacco [...] Zulma Dolan MD [facility] [address] [place], [place] [address] (Wo rk) 05/28/2022 Laboratory Appointment Lab 05/28/2022 Office Visit Cardiology Zulma Dolan MD [facility] [place] [address] Liz Poole PA [facility] [place] [address] 06/10/2022 Office Visit Dermatology Laura Scherer MD [facility] DR TE[address] GR-DERMAT [place], [place] [address] (Wo rk) documented as [...] Organization Address City/State/[place] [address] CERNER MILLENNIUM documented in this encounter Visit Diagnoses Diagnosis Urinary retention - Primary Retention of urine, unspecified BPH (benign prostatic hyperplasia) Unspecified hyperplasia of prostate with out urinary obstruction and other lower urinary tract symptoms (LUTS) documented in this encounter Care Teams Database Support Relationship Specialty Start Date End Date Angela Holliday APRN PCP - General 01/25/13 04/15/[address] [place] [address] documented as of this encounter
--- OUTSIDE RECORDS SUMMARY | 2022-05-20 09:42 | XMS_ITS | Encounter Summary ---
:1945 Author Organization [facility] [place] [address] Care Team Providers Name Role Phone MiyaLokeshAngela STACIE Primary Care Provider Encounter Details Date Type Department Care Team Description 04/04/2013 Orders Only General Surgery at Manny Mcknight thyroid [facility] MD Eliseo carcinoma (Primary Dx) [facility] [place] [address] GENERAL SURGERY [phone] [place], [place] [address] Social History Tobacco Use [...] MD [facility] er [address] [place], [place] [address] (Wo rk) 05/28/2022 Laboratory Appointment Lab 05/28/2022 Office Visit Cardiology Zulma Dolan MD [facility] [place] [address] Liz Poole PA [facility] [place] [address] 06/10/2022 Office Visit Dermatology Laura Scherer MD [facility] DR TE[address] GR[address]DERMAT [place], [place] [address] (Wo rk) documented as of this encounter Visit Diagnoses Diagnosis Papillary thyroid carcinoma - Primary Malignant neoplasm of thyroid gland documented in this encounter Care Teams Psychiatric Clinical Nurse Specialist Relationship Specialty Start Date End Date Angela Holliday APRN PCP - General 01/25/13 04/15/[address] [place] [address] documented as of this encounter
--- OUTSIDE RECORDS SUMMARY | 2022-05-20 09:42 | XMS_ITS | Encounter Summary ---
:1945 Author Organization [facility] [place] [address] Care Team Providers Name Role Phone Lovely Vicente MD Primary Care Provider Reason for Visit Reason Comments Follow-up Encounter Details Date Type Department Care Team Description 06/03/2017 Office Visit Dermatology at [facility]an benign nevi; Abdelrahman HOOPER MD History of melanoma; [address] [facility] History of dysplastic nevus; [place] [address] Skin exam for malignant neoplasm [phone] [facility]-DER[facility] [place], [place] [address] Social History Tobacco Use Types [...] Cardiology Zulma Dolan MD [facility] [place], [place] [address] (Wo rk) 05/28/2022 Laboratory Appointment Lab 05/28/2022 Office Visit Cardiology Zulma Dolan MD [facility] [place] [address] Liz Poole PA [facility] [place] [address] 06/10/2022 Office Visit Dermatology Laura Scherer MD [facility] [address]-DERMAT [place], [place] [address] (Wo rk) documented as of [...] documented in this encounter Care Teams Rn Nicu Relationship Specialty Start Date End Date Lovely Vicente MD PCP - General 04/16/15 [facility] [address] [place] [address] documented as of this encounter
--- OUTSIDE RECORDS SUMMARY | 2022-05-20 09:42 | XMS_ITS | Encounter Summary ---
:1945 Author Organization [facility] [place] [address] Care Team Providers Name Role Phone Angela Holliday APRN Primary Care Provider Encounter Details Date Type Department Care Team Description 04/05/2013 Office Visit Urology at [facility] [place] [address] Social History Tobacco Use Types Packs/Day [...] MD [facility] [address] [place], [place] [address] (Wo rk) 05/28/2022 Laboratory Appointment Lab 05/28/2022 Office Visit Cardiology Zulma Dolan MD [facility] [place] [address] Liz Poole PA [facility] [place] [address] 06/10/2022 Office Visit Dermatology Laura Scherer MD [facility] DR [address]-DERMAT [place], [place] [address] (Wo rk) documented as of this encounter Visit Diagnoses Not on filedocumented in this encounter Care Teams Director Child Abuse Therapy Relationship Specialty Start Date End Date Angela Holliday APRN PCP - General 01/25/13 04/15/[address] [place] [address] documented as of this encounter
--- OUTSIDE RECORDS SUMMARY | 2022-05-20 09:42 | XMS_ITS | Encounter Summary ---
:1945 Author Organization [facility] [place] [address] Care Team Providers Name Role Phone MiyaAngela STACIE Primary Care Provider Reason for Visit Reason Comments Urinary Retention Encounter Details Date Type Department Care Team Description 05/16/2013 Follow[place]Up [place] [facility] Blade Smith, Retention of urine [facility] (Primary Dx) [place] [address] UROLOGY DEPT [place] [address] (Wo rk) Social History Tobacco Use Types [...] Zulma Dolan MD [facility] [address] [place], [place] [address] (Wo rk) 05/28/2022 Laboratory Appointment Lab 05/28/2022 Office Visit Cardiology Zulma Dolan MD [facility] [place] [address] Liz Poole PA [facility] [place] [address] 06/10/2022 Office Visit Dermatology Laura Scherer MD [facility] [address] GR-DERMAT [place], [place] [address] (Wo rk) documented as of this encounter Visit Diagnoses Diagnosis Retention of urine - Primary Retention of urine, unspecified documented in this encounter Care Teams All Source Intelligence Technician Relationship Specialty Start Date End Date Angela Holliday APRN PCP - General 01/25/13 04/15/[address] [place] [address] documented as of this encounter
--- OUTSIDE RECORDS SUMMARY | 2022-05-20 09:42 | XMS_ITS | Encounter Summary ---
:1945 Author Organization [facility] [place] [address] Care Team Providers Name Role Phone Lovely Vicente MD Primary Care Provider Encounter Details Date Type Department Care Team Description 07/05/2017 Telephone Cardiology Kim Galindo MD [facility] [place] [address] CARDIOLOGY DEPT [phone] [place], [place] [address] (Wo rk) Social History Tobacco [...] 1:54pm Referring Provider: Ivania CROWELL) Patient Location: [facility] Presenting Symptoms per OSH: 72 [...] infarct and elevated troponin, transport patient to [facility] for cath this afternoon and arrhythmia monitoring. Kim Galindo MD Radar Engineer documented in this encounter Plan of Treatment Upcoming Encounters Date Type Specialty Care Team Description 05/28/2022 Appointment Cardiology Zulma Dolan MD [facility] [address] [place], [place] [address] (Wo rk) 05/28/2022 Laboratory Appointment Lab 05/28/2022 Office Visit Cardiology Zulma Dolan MD [facility] [place] [address] Liz Poole PA [facility] [place] [address] 06/10/2022 Office Visit Dermatology Laura Scherer MD [facility] [address] GR-DERMAT [place], [place] [address] (Wo rk) documented as of this encounter Visit Diagnoses Not on filedocumented in this encounter Care Teams Technology Director Relationship Specialty Start Date End Date Lovely Vicente MD PCP - General 04/16/[address] [place] [address] documented as of this encounter
--- OUTSIDE RECORDS SUMMARY | 2022-05-20 09:42 | XMS_ITS | Encounter Summary ---
:1945 Author Organization [facility] [address] Care Team Providers Name Role Phone MiyaAngela STACIE Primary Care Provider Reason for Visit Reason Onset Date Comments Advice Only 03/31/2013 Encounter Details Date Type Department Care Team Description 03/31/2013 Telephone Urology at [facility] Dainele Trejo III, MD Advice Only [facility] [place] [address] [place] [id number] [phone] (Wo rk) Social History Tobacco Use Types [...] Zulma Dolan MD [facility] [place], [place] [address] (Wo rk) 05/28/2022 Laboratory Appointment Lab 05/28/2022 Office Visit Cardiology Zulma Dolan MD [facility] [place] [address] Liz Poole PA [facility] [place] [address] 06/10/2022 Office Visit Dermatology Laura Scherer MD [facility] DR [address] GR-DERMAT [place], [place] [address] (Wo rk) documented as of this encounter Visit Diagnoses Not on filedocumented in this encounter Care Teams Barrel Loader Relationship Specialty Start Date End Date Angela Holliday APRN PCP - General 01/25/13 04/15/[address] [place] [address] documented as of this encounter
--- OUTSIDE RECORDS SUMMARY | 2022-05-20 09:42 | XMS_ITS | Encounter Summary ---
:1945 Author Organization [facility] [place] [address] Care Team Providers Name Role Phone Som Holliday APRN Primary Care Provider Encounter Details Date Type Department Care Team Description 04/11/2014 Procedure visit Gastroenterology at [facility] Esophageal reflux [facility] Luz Winchester RN (Primary Dx) [place] [address] Social History Tobacco Use Types Packs/Day Years Used Date Former Smoker Alcohol Use Standard Drinks/Week Comments No 0 (1 standard drink = 0.6 oz pure alcoho l) Sex Assigned at Date Recorded Not on file documented as of this encounter Progress Notes Adalid Cna MD - 04/13/2014 3:43 PM EDT ESOPHAGEAL MANOMETRY Don Fatima Male, 69 yrs, 1945 PCP: SOM HOLLIDAY HEAD REFRIGERATING ENGINEER: NONE STUDY DATE: 04/11/14 PROVIDER: [place] ([id number]) INDICATION Reflux; preoperative evaluation. METHODS Stationary esophageal manometry was performed with the Souche esophageal motility system utilizing the Polygram software [...] of the esophagus. Adalid Can, PhD, MD travel rn or, [facility] [employer] Section of Gastroenterology and Hepatology [facility] [place] [address] V: [phone] F: [phone] BANNER/gabriela CC/EC: PCP - staff msg copy 04/13/14 Henrique Taylor MD - fax copy 04/13/14 Luz Keller RN - 04/11/2014 8:14 AM EDT Esophageal manometry performed without difficulty and Was well tolerated. documented in this encounter Plan of Treatment Upcoming Encounters Date Type Specialty Care Team Description 05/28/2022 Appointment Cardiology Zulma Dolan MD [facility] [place], [place] [address] (Wo rk) 05/28/2022 Laboratory Appointment Lab 05/28/2022 Office Visit Cardiology Zulma Dolan MD [facility] [place] [address] Liz Poole PA [facility] [place] [address] 06/10/2022 Office Visit Dermatology Laura Scherer MD [facility] DR [address] GR-DERMAT [place], [place] [address] (Wo rk) documented as of this encounter Visit Diagnoses Diagnosis Esophageal reflux - Primary documented in this encounter Care Teams Insight Director Relationship Specialty Start Date End Date Som Holliday APRN PCP - General 01/25/13 04/15/[address] [place] [address] documented as of this encounter
--- OUTSIDE RECORDS SUMMARY | 2022-05-20 09:42 | XMS_ITS | Encounter Summary ---
:1945 Author Organization [facility] [place] [address] Care Team Providers Name Role Phone Angela Holliday APRN Primary Care Provider Reason for Visit Reason Comments Skin Check Encounter Details Date Type Department Care Team Description 07/31/2013 Follow-Up Dermatology at Rigoberto Forman eoplasm of unspecified nature of bone, soft tissue, and skin (Primary Dx); Abdelrahman HOOPER MD Seborrheic psoriasis- scalp and ingtergl uteal area; [address] [facility] Atypical nevus [place] [address] [facility] [place], [place] [address] (Wo rk) Social History [...] encounter. Rigoberto Albarran MD Section of Dermatology [facility] documented in this encounter Plan of Treatment Upcoming Encounters Date Type Specialty Care Team Description 05/28/2022 Appointment Cardiology Zulma Dolan MD [facility] [address] [place] [address] (Wo lissa) 05/28/2022 Laboratory Appointment Lab 05/28/2022 Office Visit Cardiology Zulma Dolan MD [facility] [place] [address] Liz Poole PA [facility] [place] [address] 06/10/2022 Office Visit Dermatology Laura Scherer MD [facility] DR TE[address] GR-DERMAT [place], [place] [address] (Wo rk) Scheduled Orders Name [...] Test Analysis Performed At [facility] gist Range Method Time Signature Surgical CERNER Pathology ? [facility] Report ? Provider: ?? RIGOBERTO ALBARRAN III Pt. Name: ?? GREGORY HOANG ?A ? Acc #: ?[id number] ? Pt. ? Col Date: ?? 07/31/2013 [...] negative controls. ??These ? IHC studies provide [facility] pathologist with adjunctive diagnostic information. [...] 0.9 x 0.8 x 0.2 cm. ? [facility] ? Provider: ?? DEION III, RIGOBERTO Pt. Name: ?? GREGORY HOANG ?A ? Acc #: ?[id number] ? Pt. ? Col Date: ?? 07/31/2013 [...] [facility]/ZIP Code Phon e Number [address] CERNER MILLENNIUM Specimen to [...] [facility]/[place] [address] CERNER MILLENNIUM documented in this encounter Visit Diagnoses Diagnosis Neoplasm of unspecified nature of bone, soft tissue, and skin - Primary Seborrheic psoriasis- scalp and ingtergl uteal area Other psoriasis Atypical nevus of abdominal wall Benign neoplasm of skin of trunk, except scrotum documented in this encounter Care Teams Administrative Fellow Relationship Specialty Start Date End Date Angela Holliday APRN PCP - General 01/25/13 04/15/[address] [place] [address] documented as of this encounter
--- OUTSIDE RECORDS SUMMARY | 2022-05-20 09:42 | XMS_ITS | Encounter Summary ---
:1945 Author Organization [facility] [place] [address] Care Team Providers Name Role Phone Angela Holliday APRN Primary Care Provider Reason for Visit Reason Onset Date Comments Other 03/30/2013 blood in catheter ba g Encounter Details Date Type Department Care Team Description 03/30/2013 Telephone General Surgery at [facility] Janneth Sharma, Other (blood in [facility] RN catheter bag) [place] [address] Social History Tobacco Use Types Packs/Day [...] Cardiology Zulma Dolan MD [facility] [place], [place] [address] (Wo rk) 05/28/2022 Laboratory Appointment Lab 05/28/2022 Office Visit Cardiology Zulma Dolan MD [facility] [place] [address] Liz Poole PA [facility] [place] [address] 06/10/2022 Office Visit Dermatology Laura Scherer MD [facility] DR TE[address] GR-DERMAT [place], [place] [address] (Wo rk) documented as of this encounter Visit Diagnoses Not on filedocumented in this encounter Care Teams Virologist Relationship Specialty Start Date End Date Angela Holliday APRN PCP - General 01/25/13 04/15/[address] [place] [address] documented as of this encounter
--- OUTSIDE RECORDS SUMMARY | 2022-05-20 09:42 | XMS_ITS | Encounter Summary ---
:1945 Author Organization [facility] [place] [address] Care Team Providers Name Role Phone Lovely Vicente MD Primary Care Provider Reason for Visit Reason Comments Skin Check Encounter Details Date Type Department Care Team Description 06/05/2016 Office Visit Dermatology at [facility] istory of melanoma; Abdelrahman HOOPER MD Seborrheic keratosis; [address] [facility] [place] (actinic keratosis); [place] [address] Multiple nevi; [phone] [facility] [address]-DERMATOLGY [place], [place] [address] Social History Tobacco Use Types Packs/Day Years Used Date Former Smoker Smokeless Tobacco: Never Used Alcohol Use Standard Drinks/Week Comments No 0 (1 standard drink = 0.6 oz pure alcoho l) Sex Assigned at Date Recorded Not on file documented as of this encounter Progress Notes iGnny Christiansen LPN - 06/05/2016 10:15 AM EST [...] Zulma Dolan MD [facility] [place], [place] [address] (Wo rk) 05/28/2022 Laboratory Appointment Lab 05/28/2022 Office Visit Cardiology Zulma Dolan MD [facility] [place] [address] Liz Poole PA [facility] [place] [address] 06/10/2022 Office Visit Dermatology Laura Scherer MD [facility] DR [address] GR-DERMAT [place], [place] [address] (Wo rk) documented as of this encounter Visit Diagnoses Diagnosis History of melanoma Personal history of malignant melanoma o f skin Seborrheic keratosis Other seborrheic keratosis [place] (actinic keratosis) Actinic keratosis Multiple nevi Benign neoplasm of skin, site unspecifie d Scar Scar condition and fibrosis of skin documented in this encounter Care Teams Soft Mud Molder Relationship Specialty Start Date End Date Lovely Vicente MD PCP - General 04/16/[address] [place] [address] documented as of this encounter
--- OUTSIDE RECORDS SUMMARY | 2022-05-20 09:42 | XMS_ITS | Encounter Summary ---
:1945 Author Organization [facility] [place] [address] Care Team Providers Name Role Phone MiyaAngela STACIE Primary Care Provider Encounter Details Date Type Department Care Team Description 04/26/2014 Office Visit Endocrinology at [facility] Albertina Palmer, Papillary thyroid [facility] [place] [address] CENTER [phone] ENDOCRINOLOGY DEPT [place] [address] Social History Tobacco Use Types Packs/Day Years [...] Dolan MD [facility] [address] [place], [place] [address] (Wo rk) 05/28/2022 Laboratory Appointment Lab 05/28/2022 Office Visit Cardiology Zulma Dolan MD [facility] [place] [address] Liz Poole PA [facility] [place] [address] 06/10/2022 Office Visit Dermatology Laura Scherer MD [facility] DR [address] GR-DERMAT [place]LOG[place], [place] [address] (Wo rk) [...] athologist Signature Thyroglobulin <0.4 <=54.9 CERNER ng/mL [facility] Comment: Interpret with caution. Tg [...] BR et al. J Clin Endo Metab 1999;84:3650-3842). Assay performed using the DPC Immulite T [...] Address City/State/ZIP Code Phon e Number [address] CERNER MILLENNIUM (ABNORMAL) TSH (04/26/2014 9:07 AM EDT) P athologist Signature TSH 4.46 (H) 0.27 - 4.20 CERNER mcIU/mL MILLENNIUM Specimen Anatomical Collection Method Collection Time Receive d Time (Source) Location / / Volume Laterality Blood specimen 04/26/2014 9:07 AM 014 9:12 (specimen) EDT AM EDT Resulting Agency Comment Spec In Lab Rosalind Palmer MD CHEMISTRY ORDERABLES Performing Organization Address City/[facility]/ZIP Code Phon e Number [address] CERNER MILLENNIUM documented in this encounter Visit Diagnoses Diagnosis Papillary thyroid carcinoma Malignant neoplasm of thyroid gland documented in this encounter Care Teams Sales Analyst Relationship Specialty Start Date End Date Angela Holliday APRN PCP - General 01/25/13 04/15/[address] [place] [address] documented as of this encounter
--- OUTSIDE RECORDS SUMMARY | 2022-05-20 09:42 | XMS_ITS | Encounter Summary ---
:1945 Author Organization [facility] [place] [address] Care Team Providers Name Role Phone Lovely Vicente MD Primary Care Provider Encounter Details Date Type Department Care Team Description 11/28/2016 Telephone Dermatology at [facility] Rigoberto Garcia III, [address] [place] [address] [facility] [phone] [facility] SIMÓN-DERMAT [place], [place] [address] (Wo rk) Social History Tobacco [...] provider. Rigoberto Garcia MD Section of Dermatology [facility] documented in this encounter Plan of Treatment Upcoming Encounters Date Type Specialty Care Team Description 05/28/2022 Appointment Cardiology Zulma Dolan MD [facility] [address] [place], [place] [address] (Wo rk) 05/28/2022 Laboratory Appointment Lab 05/28/2022 Office Visit Cardiology Zulma Dolan MD [facility] [place] [address] Liz Poole PA [facility] [place] [address] 06/10/2022 Office Visit Dermatology Laura Scherer MD [facility] DR TE[address] MARIE-DERMAT [place], [place] [address] (Wo rk) documented as of this encounter Visit Diagnoses Not on filedocumented in this encounter Care Teams Sales Enablement Consultant Relationship Specialty Start Date End Date Lovely Vicente MD PCP - General 04/16/[address] [place] [address] documented as of this encounter
--- OUTSIDE RECORDS SUMMARY | 2022-05-20 09:42 | XMS_ITS | Encounter Summary ---
:1945 Author Organization [facility] [place] [address] Care Team Providers Name Role Phone Lovely Vicente MD Primary Care Provider Reason for Visit Reason Onset Date Comments Referral 10/30/2015 Urgent referral for mac on SIMÓN [place]AVIS Encounter Details Date Type Department Care Team Description 10/30/2015 Telephone Ophthalmology at [facility] C Jayson Ruiz Referral (Urgent [facility] MD Grabiel referral for mac on Formerly named [facility] DR SIM[address] [place]) [place] [address] OPHTHALMOLOGY DEPT. [phone] [place], [place] [address] (Wo rk) Social History [...] Dolan MD [facility] [address] [place], [place] [address] (Wo rk) 05/28/2022 Laboratory Appointment Lab 05/28/2022 Office Visit Cardiology Zulma Dolan MD [facility] [place] [address] Liz Poole PA [facility] [place] [address] 06/10/2022 Office Visit Dermatology Laura Scherer MD [facility] [address] GR-DERMAT [place], [place] [address] (Wo rk) documented as of this encounter Visit Diagnoses Not on filedocumented in this encounter Care Teams Dredge Pipeman Relationship Specialty Start Date End Date Lovely Vicente MD PCP - General 04/16/[address] [place], [place] [address] documented as of this encounter
--- OUTSIDE RECORDS SUMMARY | 2022-05-20 09:42 | XMS_ITS | Encounter Summary ---
:1945 Author Organization [facility] [place] [address] Care Team Providers Name Role Phone Angela Sotelo APRN Primary Care Provider Encounter Details Date Type Department Care Team Description 01/16/2014 Surgery Gastroenterology at [facility] Nohemi Jaimes, COLONOSCOPY, [facility] Jorge mcnamara MD [place], [place] [address] [facility] ([facility] [phone] DR Cintron) GASTROENTEROLOGY DEPT. [place], [place] [address] Social History Tobacco Use Types [...] you need to be checked. [facility] [phone] 8a-5p Same Day Endo [phone] 7a-8p Otherwise contact [phone] and ask to speak to the jd edwards consultant administration clerk Follow up care is a shelton [...] Jaimes MD - 01/16/2014 9:49 AM EDT [facility] Operative Note Patient Name: Gregory Fatima : [id number] MR#: [id number] Case Date: 01/16/2014 Surgeon: Surgeon(s) and Role: * Nohemi Jaimes MD - Primary Preoperative diagnosis: 5 yr surv. Full procedure note is documented under the Procedure section of eDH. documented in this encounter Plan of Treatment Upcoming Encounters Date Type Specialty Care Team Description 05/28/2022 Appointment Cardiology Zulma Dolan MD [facility] [address] [place] [address] (Wo rk) 05/28/2022 Laboratory Appointment Lab 05/28/2022 Office Visit Cardiology Zulma Dolan MD [facility] [place] [address] Liz Poole PA [facility] [place] [address] 06/10/2022 Office Visit Dermatology Laura Scherer MD [facility] DR [address] [address] (Wo rk) documented as of this encounter [...] - [employer] Report ? Provider: ?? SHREE, NOHEMI Gonzalez ?Pt. Name: ?? MALICKA RT, GREGORY E ? Acc #: ?[id number] ?Pt. MRN: ?[id number] ? Col Date: ?? 4 ? /Sex: [...] Organization Address City/State/ZIP Code Phon e Number [place] [id number]ITAL LAB[address] RAKESH WALKER Specimen to [...] Address City/[facility]/[place] [address] CERNER MILLENNIUM Specimen to [...] PATHOLOGY/CYTOLOGY ORDERABLE S Performing Organization Address [facility] [place] [address] CERNER MILLENNIUM COLONOSCOPY (01/16/2014 7:25 AM EDT) [facility] gist Method Time Signature COLONOSCOPY [facility]OV[facility] Endoscopy Patient Name: Gregory Fatima ? Procedure Date: 01/16/2014 7:25 AM ? N: [id number] ? Date of : 1945 ? Age: 68 ? Order #: [id number] ? Procedure: ? Colonoscopy Indications: ? High [...] Laterality 01/16/2014 7:25 AM EDT Angela Sotelo LATHE SCALPER OPERATOR GENERAL SURGICAL ORDERABLES Performing Organization Address [...] documented in this encounter Care Teams Head Machine Feeder Relationship Specialty Start Date End Date Angela Sotelo APRN PCP - General 01/25/13 04/15/15 [address] [place] [place] [address] documented as of this encounter
--- OUTSIDE RECORDS SUMMARY | 2022-05-20 09:42 | XMS_ITS | Encounter Summary ---
:1945 Author Organization [facility] [place] [address] Care Team Providers Name Role Phone MiyaLokeshAngela STACIE Primary Care Provider Encounter Details Date Type Department Care Team Description 01/16/2014 Hospital Encounter Gastroenterology at [facility] Nohemi Swann, [facility] [place] [address] [facility] [phone] [facility] GASTROENTEROLOGY DEPT. [place], [place] [address] Social History Tobacco Use Types [...] you need to be checked. Wednesday-Wednesday Clinic [phone] 8a-5p Same Day Endo [phone] 7a-8p Otherwise contact [phone] and ask to speak to the hearing aid repairer front desk assistant Follow up care is a shelton [...] Swann MD - 01/16/2014 9:49 AM EDT [facility] Operative Note Patient Name: Gregory Fatima : [id number] MR#: [id number] Case Date: 01/16/2014 Surgeon: Surgeon(s) and Role: * Nohemi Swann MD - Primary Preoperative diagnosis: 5 yr surv. Full procedure note is documented under the Procedure section of eDH. documented in this encounter Plan of Treatment Upcoming Encounters Date Type Specialty Care Team Description 05/28/2022 Appointment Cardiology Zulma Dolan MD [facility] [address] [place], [place] [address] (Wo rk) 05/28/2022 Laboratory Appointment Lab 05/28/2022 Office Visit Cardiology Zulma Dolan MD [facility] [place] [address] Liz Poole PA [facility] [place] [address] 06/10/2022 Office Visit Dermatology Laura Scherer MD [facility] DR [address] GR-DERMAT [place], [place] [address] (Wo rk) documented as of this encounter [...] Surgical Pathology Report (01/16/2014 9:53 AM EDT) [facility] Method Time Signature Surgical CERNER Pathology ? [facility] Report ? Provider: ?? NOHEMI SWANN ?Pt. Name: ?? MALICKEliseo RT, GREGORY E ? Acc #: ?[id number] ?Pt. MRN: ?[id number] ? Col Date: ?? 4 ? /Sex: [...] City/State/ZIP Code Phon e Number [place] [phone] HOSPITAL LAB[address]ORY [address] RAKESH WALKER Specimen to [...] Organization Address City/State/[place] [address] [facility] Specimen to Pathology (surgical or [...] City/[facility]/[place] [address] CERNER MILLENNIUM COLONOSCOPY (01/16/2014 7:25 AM EDT) [facility] gist Method Time Signature COLONOSCOPY [facility] Endoscopy Patient Name: Gregory Fatima ? Procedure Date: 01/16/2014 7:25 AM ? N: [id number] ? Date of : 1945 ? Age: 68 ? Order #: [id number] ? Procedure: ? Colonoscopy Indications: ? High risk colon cancer surveillance : ? 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 dm on metformin with bs ~ 110 this ? am,s/p melanoma years ago, os a, ? goiter s/p surgery, [facility] Providers: ? Nohemi Swann MD, [...] Laterality 01/16/2014 7:25 AM EDT Angela Sotelo WOOD COATER GENERAL SURGICAL ORDERABLES Performing Organization Address City/State/ZIP [...] Routine documented in this encounter Care Teams Development Associate Relationship Specialty Start Date End Date Angela Sotelo APRN PCP - General 01/25/13 04/15/[address] [place] [address] documented as of this encounter
--- OUTSIDE RECORDS SUMMARY | 2022-05-20 09:42 | XMS_ITS | Encounter Summary ---
:1945 Author Organization [facility] [place] [address] Care Team Providers Name Role Phone Angela Holliday STACIE Primary Care Provider Encounter Details Date Type Department Care Team Description 04/04/2013 Telephone Urology at [facility] Parker [place] [address] UROLOGY DEPT [phone] [place], [place] [address] (Wo rk) Social History Tobacco [...] Zulma Dolan MD [facility] Dr [place], [place] [address] (Wo rk) 05/28/2022 Laboratory Appointment Lab 05/28/2022 Office Visit Cardiology Zulma Dolan MD [facility] [place] [address] Liz Poole PA [facility] [place] [address] 06/10/2022 Office Visit Dermatology Laura Scherer MD [facility] DR [address] [place], [place] [address] (Wo rk) documented as of this encounter Visit Diagnoses Not on filedocumented in this encounter Care Teams Head Of Digital Advertising & Integration Relationship Specialty Start Date End Date Angela Holliday APRN PCP - General 01/25/13 04/15/[address] [place] [address] documented as of this encounter
--- OUTSIDE RECORDS SUMMARY | 2022-05-20 09:42 | XMS_ITS | Encounter Summary ---
:1945 Author Organization [facility] [place] [address] Care Team Providers Name Role Phone Angela Holliday APRN Primary Care Provider Encounter Details Date Type Department Care Team Description 03/30/2013 Telephone General Surgery at [facility] Cliff Nevarez, [place] [address] Social History Tobacco Use Types Packs/Day [...] Zulma Dolan MD [facility] [address] [place], [place] [address] (Wo rk) 05/28/2022 Laboratory Appointment Lab 05/28/2022 Office Visit Cardiology Zulma Dolan [place] [address] Liz Poole PA [facility] [place] [address] 06/10/2022 Office Visit Dermatology Laura Scherer MD [facility] DR [address]DER[address] [place], [place] [address] (Wo rk) documented as of this encounter Visit Diagnoses Not on filedocumented in this encounter Care Teams Roll Contour Grinder Relationship Specialty Start Date End Date Angela Holliday APRN PCP - General 01/25/13 04/15/[address] [place] [address] documented as of this encounter
--- OUTSIDE RECORDS SUMMARY | 2022-05-20 09:42 | XMS_ITS | Encounter Summary ---
:1945 Author Organization [facility] [place] [address] Care Team Providers Name Role Phone Lovely Vicente MD Primary Care Provider Reason for Visit Reason Comments Medication Refill Encounter Details Date Type Department Care Team Description 05/10/2015 Refill Endocrinology at [facility] Rosalind Covarrubias, [facility] [place] [address] [facility] [phone] ENDOCRINOLOGY [place], [place] [address] (Wo rk) Social History Tobacco [...] MD [facility] [place] [address] [place], [place] [address] (Wo rk) 05/28/2022 Laboratory Appointment Lab 05/28/2022 Office Visit Cardiology Zulma Dolan MD [facility] [place] [address] Liz Poole PA [facility] [place] [address] 06/10/2022 Office Visit Dermatology Laura Scherer MD [facility] ER DR [address] GR-[address] [place], [place] [address] (Wo rk) documented as of this encounter Visit Diagnoses Not on filedocumented in this encounter Care Teams Cash Management Officer Relationship Specialty Start Date End Date Lovely Vicente MD PCP - General 04/16/[address] [place] [address] documented as of this encounter
--- OUTSIDE RECORDS SUMMARY | 2022-05-20 09:42 | XMS_ITS | Encounter Summary ---
:1945 Author Organization [facility] [place] [address] Care Team Providers Name Role Phone MiyaLokeshAngela STACIE Primary Care Provider Reason for Visit Reason Onset Date Comments Post-op Problem 04/05/2013 voiding trial Encounter Details Date Type Department Care Team Description 04/05/2013 Telephone Urology at [facility] Blade Smith, Post-op Problem [facility] (voiding trial) [place] [address] UROLOGY DEPT [place] [address] (Wo rk) Social History Tobacco Use Types [...] Dolan MD [facility] [address] [place], [place] [address] (Wo rk) 05/28/2022 Laboratory Appointment Lab 05/28/2022 Office Visit Cardiology Zulma Dolan MD [facility] [place] [address] Liz Poole PA [facility] [place] [address] 06/10/2022 Office Visit Dermatology Laura Scherer MD [facility] [address] GR[address] [place], [place] [address] (Wo rk) documented as of this encounter Visit Diagnoses Not on filedocumented in this encounter Care Teams Hr Recruiter Relationship Specialty Start Date End Date Angela Holliday APRN PCP - General 01/25/13 04/15/[address] [place] [address] documented as of this encounter
--- OUTSIDE RECORDS SUMMARY | 2022-05-20 09:42 | XMS_ITS | Encounter Summary ---
:1945 Author Organization [facility] [place] [address] Care Team Providers Name Role Phone Lovely Vicente MD Primary Care Provider Reason for Visit Reason Comments Skin Lesion Encounter Details Date Type Department Care Team Description 11/24/2016 [facility] of uncertain behavior of skin; Road IIIMD Pigmented skin lesion of uncertain natur e; [address] [facility] [place] of [place] [address] [facility] SIMÓN-DERMATOLGY [place], [place] [address] Social History Tobacco Use [...] or concerns, please call the office at [phone]. If it is after 5PM, or a holiday or weekend, please call [phone] and ask for the Display Card Writer on-call. documented in this encounter Progress [...] 71 y.o. year old male.Established patient of [facility]. Last seen 06/05/16. Here today for new [...] Dolan MD [facility] er [place]NA [place] [address] (Wo rk) 05/28/2022 Laboratory Appointment Lab 05/28/2022 Office Visit Cardiology Zulma Dolan MD [facility] [place] [address] Liz Poole PA [facility] [place] [address] 06/10/2022 Office Visit Dermatology Laura Scherer MD [facility] ER DR [address]-DERMAT OLOGY [place], [place] [address] (Wo rk) documented [...] Hospital gist Range Method Time Signature Surgical [id number] ?Location: [facility] Report The signing pathologist has (i) [...] Organization Address City/State/[place] [address] Specimen to Pathology (NON-OR) (11/24/2016 8:28 AM EDT) Specimen Anatomical Collection Method Collection Time Receive d Time (Source) Location / / Volume Laterality AP Specimen 11/24/2016 8:28 AM 7 9:29 EDT AM EDT Narrative [facility] - 11/24/2016 9:29 AM EDT Specimen requisition ordered. ??Separate Pathology report to follow Resulting Agency Comment Spec In Lab Rigoberto Garcia III, MD PATHOLOGY/CYTOLOGY ORDERABLE S Performing Organization Address City/State/[place] [address] documented in this encounter Visit Diagnoses Diagnosis Neoplasm of uncertain behavior of skin Pigmented skin lesion of uncertain natur e History of melanoma Personal history of malignant melanoma o f skin documented in this encounter Care Teams Perioperative Assistant Relationship Specialty Start Date End Date Lovely Vicente MD PCP - General 04/16/[address] [place] [address] documented as of this encounter
--- OUTSIDE RECORDS SUMMARY | 2022-05-20 09:42 | XMS_ITS | Encounter Summary ---
:1945 Author Organization [facility] [place] [address] Care Team Providers Name Role Phone Lovely Vicente MD Primary Care Provider Reason for Visit Reason Onset Date Comments Pre Procedure Call 12/02/2016 Encounter Details Date Type Department Care Team Description 12/02/2016 Telephone Dermatology at [facility] Mira James LPN Pre Procedure Call [address] [place] [address] Social History Tobacco Use Types Packs/Day [...] MD [facility] [place], [place] [address] (Wo lissa) 05/28/2022 Laboratory Appointment Lab 05/28/2022 Office Visit Cardiology Zulma Dolan MD [facility] [place] [address] Liz Poole PA [facility] [place] [address] 06/10/2022 Office Visit Dermatology Laura Scherer MD [facility] [address] TEJA GR-DERMAT OLOGY [place], [place] [address] (Wo rk) documented as of this encounter Visit Diagnoses Not on filedocumented in this encounter Care Teams Domain Architect Relationship Specialty Start Date End Date Lovely Vicente MD PCP - General 04/16/[address] [place] [address] documented as of this encounter
--- OUTSIDE RECORDS SUMMARY | 2022-05-20 09:42 | XMS_ITS | Encounter Summary ---
:1945 Author Organization [facility] [place] [address] Care Team Providers Name Role Phone Angela Holliday APRN Primary Care Provider Encounter Details Date Type Department Care Team Description 03/30/2013 Telephone General Surgery at [facility] Cliff Nevarez, [place] [address] Social History Tobacco Use Types Packs/Day [...] Zulma Dolan MD [facility] er [place], [place] [address] (Wo rk) 05/28/2022 Laboratory Appointment Lab 05/28/2022 Office Visit Cardiology Zulma Dolan MD [facility] [place] [address] Liz Poole PA [facility] [place] [address] 06/10/2022 Office Visit Dermatology Laura Scherer MD [facility] DR TEJA GR-DERMAT [place], [place] [address] (Wo rk) documented as of this encounter Visit Diagnoses Not on filedocumented in this encounter Care Teams Intern Retail Relationship Specialty Start Date End Date Angela Holliday APRN PCP - General 01/25/13 04/15/[address] [place] [address] documented as of this encounter
--- OUTSIDE RECORDS SUMMARY | 2022-05-20 09:42 | XMS_ITS | Encounter Summary ---
:1945 Author Organization [facility] [place] [address] Care Team Providers Name Role Phone Angela Holliday APRN Primary Care Provider Reason for Visit Reason Comments Other Encounter Details Date Type Department Care Team Description 08/01/2013 Telephone Dermatology at [facility] Rigoberto Garcia III, [address] [place] [address] [facility] [phone] TEJA MARIE-DERMAT [place], [place] [address] (Wo rk) Social History Tobacco [...] Component Value Surgical Pathology Final Report [facility] Provider: RIGOBERTO GARCIA III Pt. Name: DON HOANG Acc #: [id number] Pt. 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 CR-0 08/01/13 BJM 08/01/13 Verified by: Ian STRANGE, PhD, [facility] Dermatopathologist (Electronic Signature) The attending pathologist whose [...] Cardiology Zulma Dolan MD [facility] [place], [place] [address] (Wo lissa) 05/28/2022 Laboratory Appointment Lab 05/28/2022 Office Visit Cardiology Zulma Dolan MD [facility] [address] Liz Poole PA [facility] [place] [address] 06/10/2022 Office Visit Dermatology Laura Scherer MD [facility] DR TEJA MARIE-DERMAT OLOG[place], [place] [address] (Wo rk) documented as of this encounter Visit Diagnoses Not on filedocumented in this encounter Care Teams Middleware Developer Relationship Specialty Start Date End Date Angela Holliday APRN PCP - General 01/25/13 04/15/[address] [place] [address] documented as of this encounter
--- OUTSIDE RECORDS SUMMARY | 2022-05-20 09:42 | XMS_ITS | Encounter Summary ---
:1945 Author Organization [facility] [place] [address] Care Team Providers Name Role Phone Lovely Vicente MD Primary Care Provider Reason for Visit Reason Onset Date Comments Medication Refill 06/19/2016 Encounter Details Date Type Department Care Team Description 06/19/2016 Refill Endocrinology at [facility] Luz Stallings MD [facility] [place] [address] ENDOCRINOLOGY DEPT [phone] [place], [place] [address] (Wo rk) Social History Tobacco [...] MD [facility] [place] [address] [place] [address] (Wo rk) 05/28/2022 Laboratory Appointment Lab 05/28/2022 Office Visit Cardiology Zulma Dolan MD [place] [address] Liz Poole PA [facility] [place] [address] 06/10/2022 Office Visit Dermatology Laura Scherer MD [facility] [address] TEJA GR-DERMAT [place], [place] [address] (Wo rk) documented as of this encounter Visit Diagnoses Not on filedocumented in this encounter Care Teams Fax Machine Operator Relationship Specialty Start Date End Date Lovely Vicente MD PCP - General 04/16/[address] [place], [place] [address] documented as of this encounter
--- OUTSIDE RECORDS SUMMARY | 2022-05-20 09:42 | XMS_ITS | Encounter Summary ---
:1945 Author Organization [facility] Address [facility] [place] [address] Care Team Providers Name Role Phone Lovely Vicente MD Primary Care Provider Reason for Visit Reason Comments Skin Check Encounter Details Date Type Department Care Team Description 11/05/2015 Office Visit Dermatology at Rigoberto Forman benign nevi; Abdelrahman HOOPER MD Lentigines; [address] [facility] History of melanoma; [place] [address] Skin exam for malignant neoplasm [phone] [facility]-DERMATOLGY [place], [place] [address] Social History Tobacco Use [...] TEST) Strip by [facility].(Non- Drug; Combo Route) route 2 times daily. [...] the presence of Dr. Garcia.: GINNY CHRISTIANSEN INJECTION MOLDING OPERATOR and Judit Cruz, Clinical Scribe I performed the above scribed service and agree with the accuracy of the documentation in this encounter. Rigoberto Garcia MD Section of Dermatology [facility] documented in this encounter Plan of Treatment Upcoming Encounters Date Type Specialty Care Team Description 05/28/2022 Appointment Cardiology Zulma Dolan MD [facility] [address] [place] [address] (Wo rk) 05/28/2022 Laboratory Appointment Lab 05/28/2022 Office Visit Cardiology Zulma Dolan [place] [facility] [place] [address] Liz Poole PA [facility] [place] [address] 06/10/2022 Office Visit Dermatology Laura Scherer MD [facility] DR TEJA GR-DERMAT [place], [place] [address] (Wo rk) documented as of this encounter Visit Diagnoses Diagnosis Multiple benign nevi Benign neoplasm of skin, site unspecifie d Lentigines Other dyschromia History of melanoma Personal history of malignant melanoma o f skin Skin exam for malignant neoplasm Screening for malignant neoplasm of the skin documented in this encounter Care Teams Gear Lapping Machine Operator Relationship Specialty Start Date End Date Lovely Vicente MD PCP - General 04/16/15 [facility] [address] [place] [address] (work) documented as of this encounter
--- OUTSIDE RECORDS SUMMARY | 2022-05-20 09:42 | XMS_ITS | Encounter Summary ---
:1945 Author Organization [facility] [place] [address] Care Team Providers Name Role Phone Miya Angela STACIE Primary Care Provider Encounter Details Date Type Department Care Team Description 04/24/2013 Telephone Urology at [facility] Zhen Bowman MD [facility] [place] [address] UROLOGY DEPT [phone] [place], [place] [address] (Wo rk) Social [...] Zulma Dolan MD [facility] [place], [place] [address] (Wo rk) 05/28/2022 Laboratory Appointment Lab 05/28/2022 Office Visit Cardiology Zulma Dolan MD [facility] [place] [address] Liz Poole PA [facility] [place] [address] 06/10/2022 Office Visit Dermatology Laura Scherer MD [facility] DR TEJA GR-DERMAT [place], [place] [address] (Wo rk) documented as of this encounter Visit Diagnoses Not on filedocumented in this encounter Care Teams Metal Melter Relationship Specialty Start Date End Date Angela Holliday APRN PCP - General 01/25/13 04/15/[address] [place] [address] documented as of this encounter
--- OUTSIDE RECORDS SUMMARY | 2022-05-20 09:42 | XMS_ITS | Encounter Summary ---
:1945 Author Organization [facility] [place] [address] Care Team Providers Name Role Phone Angela Holliday APRN Primary Care Provider Encounter Details Date Type Department Care Team Description 04/30/2014 Orders Only Endocrinology at [facility] Albertina Palmer, Thyroid cancer [facility] Jorge Boyer MD (Primary Dx) [place] [address] [facility] [phone] CENTER ENDOCRINOLOGY DEPT [place], [place] [address] Social History Tobacco Use Types [...] MD [facility] er Dr [place], [place] [address] (Wo rk) 05/28/2022 Laboratory Appointment Lab 05/28/2022 Office Visit Cardiology Zulma Dolan MD [facility] [place] [address] Liz Poole PA [facility] [place] [address] 06/10/2022 Office Visit Dermatology Laura Scherer MD [facility] ER DR TEJA GR-DERMAT [place], [place] [address] (Wo rk) documented as of this encounter Visit Diagnoses Diagnosis Thyroid cancer - Primary Malignant neoplasm of thyroid gland documented in this encounter Care Teams Laborer [employer] Relationship Specialty Start Date End Date Angela Holliday APRN PCP - General 01/25/13 04/15/[address] [place] [address] documented as of this encounter
--- OUTSIDE RECORDS SUMMARY | 2022-05-20 09:42 | XMS_ITS | Encounter Summary ---
:1945 Author Organization [facility] [place] [address] Care Team Providers Name Role Phone Lovely Vicente MD Primary Care Provider Encounter Details Date Type Department Care Team Description 07/10/2016 Telephone Dermatology at [facility] Rigoberto White III, [address] [place] [address] [address] [facility] [phone] [facility] MARIE-DERMAT [place], [place] [address] (Wo rk) Social History Tobacco [...] Dolan MD [facility] Dr [place], [place] [address] (Wo rk) 05/28/2022 Laboratory Appointment Lab 05/28/2022 Office Visit Cardiology Zulma Dolan MD [facility] [place] [address] Liz Poole PA [facility] [place] [address] 06/10/2022 Office Visit Dermatology Laura Scherer MD [facility] DR TEJA MARIE-DERMAT [place], [place] [address] (Wo rk) documented as of this encounter Visit Diagnoses Not on filedocumented in this encounter Care Teams Brand Inspector Relationship Specialty Start Date End Date Lovely Vicente MD PCP - General 04/16/15 [facility] [address] [place] [address] documented as of this encounter
--- OUTSIDE RECORDS SUMMARY | 2022-05-20 09:42 | XMS_ITS | Encounter Summary ---
:1945 [place] [address] Care Team Providers Name Role Phone Lovely Vicente MD Primary Care Provider Reason for Visit Reason Onset Date Comments Other 12/09/2016 RESULTS Encounter Details Date Type Department Care Team Description 12/09/2016 Telephone Dermatology at [facility] Halima Cadet MD Other (RESULTS) [address] [facility] [place] [address] [facility]-DER[facility] [phone] [place], [place] [address] (Wo rk) Social History Tobacco [...] EDT Spoke with patient's , Kisha (personal small business sales representative). I advised her Don's pathology [...] back. She can be reached back at [phone] documented in this encounter Plan of Treatment Upcoming Encounters Date Type Specialty Care Team Description 05/28/2022 Appointment Cardiology Zulma Dolan MD [facility] [place], [place] [address] (Wo rk) 05/28/2022 Laboratory Appointment Lab 05/28/2022 Office Visit Cardiology Zulma [place]olan [place] [address] Liz Poole PA [facility] [place] [address] 06/10/2022 Office Visit Dermatology Laura Scherer MD [facility] DR [address]-DERMAT [place], [place] [address] (Wo rk) documented as of this encounter Visit Diagnoses Not on filedocumented in this encounter Care Teams Invoice Machine Operator Relationship Specialty Start Date End Date Lovely Vicente MD PCP - General 04/16/[address] [place] [address] documented as of this encounter
--- OUTSIDE RECORDS SUMMARY | 2022-05-20 09:42 | XMS_ITS | Encounter Summary ---
:1945 Author Organization [facility] [address] Care Team Providers Name Role Phone MiyaAngela STACIE Primary Care Provider Encounter Details Date Type Department Care Team Description 11/27/2013 Orders Only Urology at [facility] Blade Smith, Urinary retention [facility] (Primary Dx) [place] [address] UROLOGY DEPT [place], [place] [address] Social History Tobacco Use Types [...] [facility] er [place], [place] [address] (Wo rk) 05/28/2022 Laboratory Appointment Lab 05/28/2022 Office Visit Cardiology Zulma Dolan MD [facility] [place] [address] Liz Poole PA [facility] [place] [address] 06/10/2022 Office Visit Dermatology Laura Shcerer MD [facility] ER DR TEJA GR-DERMAT [place]LOG[place], [place] [address] (Wo rk) documented as of [...] Organization Address City/State/[place] [address] CERNER MILLENNIUM documented in this encounter Visit Diagnoses Diagnosis Urinary retention - Primary Retention of urine, unspecified documented in this encounter Care Teams Dyslexia Teacher Relationship Specialty Start Date End Date Angela Holliday APRN PCP - General 01/25/13 04/15/[address] [place] [address] documented as of this encounter
--- OUTSIDE RECORDS SUMMARY | 2022-05-20 09:42 | XMS_ITS | Encounter Summary ---
:1945 Author Organization [facility] [place] [address] Care Team Providers Name Role Phone Lovely Vicente MD Primary Care Provider Encounter Details Date Type Department Care Team Description 09/03/2016 Laboratory Appointment Lab at [facility] Hx of [facility] [place] [address] Social History Tobacco Use Types Packs/Day Years [...] [facility] er [address] [place] [address] (Wo rk) 05/28/2022 Laboratory Appointment Lab 05/28/2022 Office Visit Cardiology Zulma Dolan MD [facility] [place] [address] Liz Poole PA [facility] [place] [address] 06/10/2022 Office Visit Dermatology Laura Scherer MD [facility] ER DR TEJA GR-DERMAT [place], [place] [...] AM EST) athologist Signature Thyroglobulin <0.4 <=54.9 [facility] ng/mL [facility] Comment: Interpret [...] than those obtained with T4 withdrawal protocol ([place] BR et al. J Clin Endo Metab 1999;84:0776-1121). Assay performed using the DPC Immulite T [...] Address City/State/ZIP Code Phon e Number [address] TSH (09/03/2016 11:07 AM EST) P athologist Signature TSH 3.01 0.27 - 4.20 [facility] mcIU/mL [facility] Specimen Anatomical Collection Method Collection Time Receive d Time (Source) Location / / Volume Laterality Blood specimen 09/03/2016 11:07 7 (specimen) AM EST 11:22 AM EST Resulting Agency Comment Spec In Lab Luz Prescott MD CHEMISTRY ORDERABLES Performing Organization Address City/[facility]/ZIP [facility] [place] [place] [address] documented in this encounter Visit Diagnoses Diagnosis Hx of papillary thyroid carcinoma Personal history of malignant neoplasm o f thyroid documented in this encounter Care Teams Industrial Green Systems Designer Relationship Specialty Start Date End Date Lovely Vicente MD PCP - General 04/16/[address] [place] [address] documented as of this encounter
--- OUTSIDE RECORDS SUMMARY | 2022-05-20 09:42 | XMS_ITS | Encounter Summary ---
:1945 Author Organization [facility] [place] [address] Care Team Providers Name Role Phone Lovely Vicente MD Primary Care Provider Encounter Details Date Type Department Care Team Description 09/03/2016 Office Visit Endocrinology at [facility] Maria Ines Stallings of [facility] MD [place] [address] [place] [address] ENDOCRINOLOGY DEPT [place], [place] [address] Social History Tobacco Use Types [...] to his magnesium pill. LUZ PRESCOTT MD Horologist Apprenticemaintenance and operations supervisor Section of Endocrinology [facility] Luz Prescott MD - 09/03/2016 11:30 AM [...] sonographic evidence of recurrence. LUZ PRESCOTT MD Horologist Apprenticemaintenance and operations supervisor Section of Endocrinology [facility] documented in this encounter Plan of Treatment Upcoming Encounters Date Type Specialty Care Team Description 05/28/2022 Appointment Cardiology Zulma Dolan MD [facility] [place] [address] (Wo rk) 05/28/2022 Laboratory Appointment Lab 05/28/2022 Office Visit Cardiology Zulma Dolan MD [facility] [place] [address] Liz Poole PA [facility] [place] [address] 06/10/2022 Office Visit Dermatology Laura Scherer MD [facility] DR TEJA GR-DERMAT [place], [place] [address] (Wo rk) documented as of this encounter Results Thyroglobulin (09/07/2017 2:41 PM EST) P athologist Signature Thyroglobulin 1.4 <=54.9 KATALINA RYAN ng/mL [facility] Comment: Thyroglobulin levels [...] not been established. Assay performed using the [employer] Immulite T g immunometric assay (lowest detection [...] City/[facility]/ZIP Code Phon e Number [address] TSH (09/07/2017 2:41 PM EST) athologist Signature TSH 3.93 0.27 - 4.20 [facility] mlU/ML [facility] Specimen Anatomical Collection Method Collection Time Receive d Time (Source) Location / / Volume Laterality Blood specimen 09/07/2017 2:41 PM 018 2:46 (specimen) EST PM EST Resulting Agency Comment Spec In Lab Luz Precsott MD CHEMISTRY ORDERABLES Performing Organization Address City/[facility] Phon e Number [address] Thyroglobulin (09/03/2016 11:07 AM EST) athologist Signature Thyroglobulin <0.4 <=54.9 [facility] ng/mL [facility] Comment: Interpret with [...] than those obtained with T4 withdrawal protocol ([employer] BR et al. J Clin Endo Metab 1999;84:0808-2979). Assay performed using the DPC Immulite T [...] City/[facility]/ZIP Code Phon e Number [address] TSH (09/03/2016 11:07 AM EST) P athologist Signature TSH 3.01 0.27 - 4.20 [facility] mcIU/mL [facility] Specimen Anatomical Collection Method Collection Time Receive d Time (Source) Location / / Volume Laterality Blood specimen 09/03/2016 11:07 7 (specimen) AM EST 11:22 AM EST Resulting Agency Comment Spec In Lab Luz Prescott MD CHEMISTRY ORDERABLES Performing Organization Address City/[facility]/ZIP [place] [address] documented in this encounter Visit Diagnoses Diagnosis Hx of papillary thyroid carcinoma Personal history of malignant neoplasm o f thyroid documented in this encounter Care Teams Scagliola Mechanic Relationship Specialty Start Date End Date Lovely Vicente MD PCP - General 04/16/[address] [place] [address] documented as of this encounter
--- OUTSIDE RECORDS SUMMARY | 2022-05-20 09:43 | XMS_ITS | Encounter Summary ---
:1945 Author Organization [facility] [place] [address] Care Team Providers Name Role Phone Angela Holliday APRN Primary Care Provider Encounter Details Date Type Department Care Team Description 03/28/2013 Surgery Main Operating Room Mesha Mcknight, THYROIDECTOMY, [facility]WRV[facility] 15.04[facility] DR Siddiqui [place] [address] [place] [address] [phone] (Wo rk) Social History Tobacco Use Types [...] please call the General Surgery nurse at [phone], since this may mean that you need morecalcium. Follow-up Appointment: Will be scheduled with Dr. Mcknight in 6 weeks Date and time as well as any required labs will be mailed to you Please call [phone] to confirm date and time of your [...] by calcium supplementation. Phone number for questions: [phone] before 5 PM weekdays [phone] after 5 PM and on weekends/holidays Please follow up with Urology as per their recommendations for Bob removal AttachmentsThe following attachments cannot be sent through Care Everywhere. THYROIDECTOMY: WHAT TO EXPECT AT HOME (ICELANDIC)URINARY CATHETER CARE: AFTER YOUR VISIT (ICELANDIC)documented in this encounter Medications at Time of [...] is a 68 y.o. male presents to [facility] today for total thyroidectomy. See full [...] Operative Note Patient Name: Gregory Fatima : [id number] MR#: [id number] Case Date: 03/28/2013 Surgeon: Surgeon(s) and Role: [...] patient was extubated and taken to the [facility] in stable condition. At the end [...] Operative Note Patient Name: Gregory Fatima : [id number] MR#: [id number] Case Date: 03/28/2013 Surgeon: Surgeon(s) and Role: [...] [facility] er Dr Reeder [place] [address] (Wo rk) 05/28/2022 Laboratory Appointment Lab 05/28/2022 Office Visit Cardiology Zulma Dolan MD [facility] INA Joaquin [address] Liz Poole PA [facility] Cardiology [place] [address] 06/10/2022 Office Visit Dermatology Laura Scherer MD [facility] ER DR TEJA GR-DERMAT [place] [address] (Wo rk) documented as of this encounter [...] Organization Address City/State/[place] [address] CERNER MILLENNIUM (ABNORMAL) POCT [...] CARE TEST ORDERABLE S Performing Organization Address City/[facility]/[place] [address] CERNER MILLENNIUM (ABNORMAL) POCT [...] CARE TEST ORDERABLE S Performing Organization Address City/[facility]/ZIP Code Phon e Number [address] CERNER MILLENNIUM (ABNORMAL) POCT [...] CARE TEST ORDERABLE S Performing Organization Address City/[facility]/ZIP Code Phon e Number [address] CERNER MILLENNIUM (ABNORMAL) POCT [...] CARE TEST ORDERABLE S Performing Organization Address City/[facility]/ZIP Code Phon e Number [address] CERNER MILLENNIUM (ABNORMAL) POCT [...] CARE TEST ORDERABLE S Performing Organization Address City/[facility]/ZIP Code Phon e Number [address] CERNER MILLENNIUM (ABNORMAL) POCT [...] CARE TEST ORDERABLE S Performing Organization Address City/[facility]/ZIP Code Phon e Number [address] CERNER MILLENNIUM (ABNORMAL) POCT [...] CARE TEST ORDERABLE S Performing Organization Address City/[facility]/ZIP Code Phon e Number [address] [facility] Specimen to Pathology (surgical or derm) [...] [facility]/ZIP Code Phon e Number [address] [facility] Pathology Addendum Report (03/28/2013 12:03 PM EDT) Component Value Ref Test Analysis Performed At [employer] gist Range Method Time Signature Addendum CERNER Report ? [facility] ? Provider: ?? MESHA MCKNIGHT Pt. Name: ?? GREGORY FATIMA ? Acc #: ?[id number] ?Pt. MRN: ?[id number] ? Col Date: ?? 03/28/2013 ?/Sex: ?1945,(68 [...] Volume Laterality 03/28/2013 12:03 PM EDT Mesha Mckinght MD PATHOLOGY/CYTOLOGY ORDERABLE S Performing Organization Address City/State/[place] [address] [facility] Surgical Pathology Report (03/28/2013 12:03 PM EDT) Component Value Ref Test Analysis Performed At [employer] gist Range Method Time Signature Surgical [facility] Pathology ? [facility] Report ? Provider: ?? MESHA MCKNIGHT Pt. Name: ?? GREGORY FATIMA ? Acc #: ?[id number] ?Pt. MRN: ?[id number] ? Col Date: ?? 03/28/2013 ?/Sex: ?1945,(68 [...] areas of hemorrhage and ? calcifications. ? [facility] ? Provider: ?? MESHA MCKNIGHT Pt. Name: ?? GREGORY FATIMA ? Acc #: ?[id number] ?Pt. MRN: ?[id number] ? Col Date: ?? 03/28/2013 ?/Sex: ?1945,(68 years),Male ? Rec Date: ?? 03/28/2013 ?LOC: ?[facility] ? SURGICAL PATHOLOGY ? SECTIONS/PROCESSING: [employer] Operator sections are subm itted. (R6) ? [...] Organization Address City/State/[place] [address] CERNER MILLENNIUM Frozen Section Report (03/28/2013 12:03 PM EDT) Component Value Ref Test Analysis Performed At [employer] gist Range Method Time Signature Frozen CERNER Section ? [facility] Report ? Provider: ?? MESHA MCKNIGHT Pt. Name: ?? GREGORY FATIMA ? Acc #: ?[id number] ?Pt. MRN: ?[id number] ? Col Date: ?? 03/28/2013 ?/Sex: ?1945,(68 [...] [facility]/[place] [address] CERNER MILLENNIUM POCT Glucose [...] CARE TEST ORDERABLE S Performing Organization Address City/[facility]/ZIP Code Phon e Number [address] CERNER MILLENNIUM Specimen to [...] [facility]/[place] [address] CERNER MILLENNIUM Antibody screen (03/28/2013 9:37 AM EDT) Analysis Performed At Patho logist Time Signature Ab Screen Negative CERNER Interp MILLENNIUM Expires at [id number] CERNER 752 on: MILLENNIUM Specimen Anatomical Collection Method Collection Time Receive d Time (Source) Location / / Volume Laterality Blood specimen 03/28/2013 9:37 AM 013 9:37 (specimen) EDT AM EDT Resulting Agency Comment Spec In Lab Mesha Mcknight MD BLOOD BANK ORDERABLES Performing Organization Address City/[facility]/[place] [address] [facility] GRISELDA[facility]UM ABO/Rh Typing (03/28/2013 9:37 AM EDT) athologist Signature ABORh Type O Pos [facility] Specimen Anatomical Collection Method Collection Time Receive d Time (Source) Location / / Volume Laterality Blood specimen 03/28/2013 9:37 AM 013 9:37 (specimen) EDT AM EDT Resulting Agency Comment Spec In Lab Mesha Mcknight MD BLOOD BANK ORDERABLES Performing Organization Address City/[facility]/ZIP Code Phon e Number [address] [facility] Differential, Automated (03/28/2013 9:34 AM [...] Organization Address City/State/ZIP Code Phon e Number [place] [id number]OS[address] CERNER MILLENNIUM (ABNORMAL) Basic [...] Organization Address City/State/[place] [address] CERNER MILLENNIUM (ABNORMAL) CBC [...] [facility] Specimen Anatomical Collection Method Collection Time Receive d Time (Source) Location / / Volume Laterality Blood specimen 03/28/2013 9:34 AM 013 9:38 (specimen) EDT AM EDT Resulting Agency Comment Spec In Lab Mesha Mcknight MD HEMATOLOGY ORDERABLES Performing Organization Address City/[facility]/ZIP Code Phon e Number [address] [facility] POCT Glucose (03/28/2013 9:17 AM EDT) athologist Signature POC Glucose 108 60 - 199 CERNER mg/dL [facility] Comment: Supplemental ranges: <110 mg/dL before meals <200 mg/dL all other times of the day Specimen Anatomical Collection Method Collection Time Receive d Time (Source) Location / / Volume Laterality Blood specimen 03/28/2013 9:17 AM 013 9:17 (specimen) EDT AM EDT Mesha Mcknight MD POINT OF CARE TEST ORDERABLE S Performing Organization Address City/[facility]/ZIP Code Phon e Number [address] [facility] Specimen [...] [facility]nsic Treatment Center/ZIP Code Phon e Number [address] RAKESH WALKER documented in [...] (Given - Provider: Radha Yao [facility], [facility]) 2.5 mg, Oral, DAILY, First dose [...] override documented in this encounter Care Teams Administrative Volunteer Relationship Specialty Start Date End Date Angela Holliday APRN PCP - General 01/25/13 04/15/15 [address] [place] [address] documented as of this encounter
--- OUTSIDE RECORDS SUMMARY | 2022-05-20 09:43 | XMS_ITS | Encounter Summary ---
:1945 [place] [address] Care Team Providers Name Role Phone Holley Hollidayica STACIE Primary Care Provider Encounter Details Date Type Department Care Team Description 03/28/2013 - [facility] ([facility] 03/29/2013 Barbara Gomes MD Dx) [facility] DR Siddiqui [place] [address] [phone] Social History Tobacco Use Types Packs/Day Years [...] please call the General Surgery nurse at [phone], since this may mean that you need morecalcium. Follow-up Appointment: Will be scheduled with Dr. Mcknight in 6 weeks Date and time as well as any required labs will be mailed to you Please call [phone] to confirm date and time of your [...] by calcium supplementation. Phone number for questions: [phone] before 5 PM weekdays [phone] after 5 PM and on weekends/holidays Please follow up with Urology as per their recommendations for Bob removal AttachmentsThe following attachments cannot be sent through Care Everywhere. THYROIDECTOMY: WHAT TO EXPECT AT HOME (BERMUDIAN)URINARY CATHETER CARE: AFTER YOUR VISIT (BERMUDIAN)documented in this encounter Medications at Time of [...] respiratory status: is stable No immediate issues. eKsha Gracia RN - 03/28/2013 8:52 PM EDT [...] is a 68 y.o. male presents to [facility] today for total thyroidectomy. See full [...] Willams MD - 03/28/2013 3:43 PM EDT [facility] Operative Note Patient Name: Gregory Fatima : [id number] MR#: [id number] Case Date: 03/28/2013 Surgeon: Surgeon(s) and Role: [...] patient was extubated and taken to the [facility] in stable condition. At the end [...] Operative Note Patient Name: Gregory Fatima : [id number] MR#: [id number] Case Date: 03/28/2013 Surgeon: Surgeon(s) and Role: [...] [facility] er Dr Reeder [place] [address] (Wo rk) 05/28/2022 Laboratory Appointment Lab 05/28/2022 Office Visit Cardiology Zulma Dolan MD [facility] INA Jo[place]quin [address] Liz Poole PA [facility] [place] [address] 06/10/2022 Office Visit Dermatology Laura Scherer MD [facility] ER DR TEJA GR-DERMAT [place] [address] (Wo rk) documented as of this encounter [...] Organization Address City/State/[place] [address] CERNER MILLENNIUM (ABNORMAL) POCT [...] [facility]/[place] [address] CERNER MILLENNIUM (ABNORMAL) POCT [...] [facility]/ZIP Code Phon e Number [address] CERNER MILLENNIUM (ABNORMAL) POCT [...] [facility]/ZIP Code Phon e Number [address] CERNER MILLENNIUM (ABNORMAL) POCT [...] [facility]/ZIP Code Phon e Number [address] CERNER MILLENNIUM (ABNORMAL) POCT [...] [facility]/ZIP Code Phon e Number [address] CERNER MILLENNIUM (ABNORMAL) POCT [...] [facility]/ZIP Code Phon e Number [address] CERNER MILLENNIUM (ABNORMAL) POCT [...] [facility]/ZIP Code Phon e Number [address] [facility] Specimen to Pathology (surgical or derm) (03/28/2013 12:14 PM EDT) Specimen Anatomical Collection Method Collection Time Receive d Time (Source) Location / / Volume Laterality AP Specimen 03/28/2013 12:14 03/28/2013 PM EDT 12:14 PM EDT Narrative CERNER MILLENNIUM - 03/28/2013 12:14 PM EDT Specimen requisition ordered. ??Separate Pathology report to follow Mesha Mcknight MD PATHOLOGY/CYTOLOGY ORDERABLE S Performing Organization Address City/[facility]/ZIP Code Phon e Number [address] [facility] Pathology Addendum Report (03/28/2013 12:03 PM EDT) Component Value Ref Test Analysis Performed At [facility] gist Range Method Time Signature Addendum CERNER Report ? [facility] ? Provider: ?? MESHA MCKNIGHT Pt. Name: ?? GREGORY FATIMA ? Acc #: ?[id number] ?Pt. MRN: ?[id number] ? Col Date: ?? 03/28/2013 ?/Sex: ?1945,(68 [...] City/State/[place] [address] [facility] Surgical Pathology Report (03/28/2013 12:03 PM EDT) Component Value Ref Test Analysis Performed At [facility] gist Range Method Time Signature Surgical [facility] Pathology ? [facility] Report ? Provider: ?? MESHA MCKNIGHT Pt. Name: ?? GREGORY FATIMA ? Acc #: ?[id number] ?Pt. MRN: ?[id number] ? Col Date: ?? 03/28/2013 ?/Sex: ?1945,(68 [...] hemorrhage and ? calcifications. ? [facility] ? Provider: ?? MESHA MCKNIGHT Pt. Name: ?? GREGORY FATIMA ? Acc #: ?[id number] ?Pt. MRN: ?[id number] ? Col Date: ?? 03/28/2013 ?/Sex: ?1945,(68 years),Male ? Rec Date: ?? 03/28/2013 ?LOC: ?[facility] ? SURGICAL PATHOLOGY ? SECTIONS/PROCESSING: St[employer]her [employer] T[employer] Range Feeder sections are subm itted. (R6) ? B [...] City/State/[place] [address] CERNER MILLENNIUM Frozen Section Report (03/28/2013 12:03 PM EDT) Component Value Ref Test Analysis Performed At [facility] gist Range Method Time Signature Frozen CERNER Section ? [facility] Report ? Provider: ?? MESHA MCKNIGHT Pt. Name: ?? GREGORY FATIMA ? Acc #: ?[id number] ?Pt. MRN: ?[id number] ? Col Date: ?? 03/28/2013 ?/Sex: ?1945,(68 [...] MD PATHOLOGY/CYTOLOGY ORDERABLE S Performing Organization Address City/[facility]/[place] [address] CERNER MILLENNIUM POCT Glucose [...] [facility]/ZIP Code Phon e Number [address] CERNER MILLENNIUM Specimen to [...] MD PATHOLOGY/CYTOLOGY ORDERABLE S Performing Organization Address City/[facility]/[place] [address] CERNER MILLENNIUM Antibody screen (03/28/2013 9:37 AM EDT) Analysis Performed At Patho logist Time Signature Ab Screen Negative CERNER Interp MILLENNIUM Expires at [id number] CERNER 748 on: MILLENNIUM Specimen Anatomical Collection Method Collection Time Receive d Time (Source) Location / / Volume Laterality Blood specimen 03/28/2013 9:37 AM 013 9:37 (specimen) EDT AM EDT Resulting Agency Comment Spec In Lab Mesha Mcknight MD BLOOD BANK ORDERABLES Performing Organization Address City/[facility]/[place] [address] [facility] GRISELDAENNIUM ABO/Rh Typing (03/28/2013 9:37 AM EDT) athologist Signature ABORh Type O Pos [facility] Specimen Anatomical Collection Method Collection Time Receive d Time (Source) Location / / Volume Laterality Blood specimen 03/28/2013 9:37 AM 013 9:37 (specimen) EDT AM EDT Resulting Agency Comment Spec In Lab Mesha Mcknight MD BLOOD BANK ORDERABLES Performing Organization Address City/[facility]/ZIP Code Phon e Number [address] [facility]ELD[facility] Differential, Automated (03/28/2013 9:34 [...] City/State/ZIP Code Phon e Number [place] [id number]OS[address] CERNER MILLENNIUM (ABNORMAL) Basic [...] intervals supplied above were not validated at [facility]. Results from pediatri c patients should be [...] City/State/[place] [address] CERNER MILLENNIUM (ABNORMAL) CBC [...] MPV 9.3 9.0 - 12.0 CERNER fL [facility] Specimen Anatomical Collection Method Collection Time Receive d Time (Source) Location / / Volume Laterality Blood specimen 03/28/2013 9:34 AM 013 9:38 (specimen) EDT AM EDT Resulting Agency Comment Spec In Lab Mesha Mcknight MD HEMATOLOGY ORDERABLES Performing Organization Address City/[facility]/ZIP Code Phon e Number [address] [facility] GR[facility]ELDACOBRE [facility]UM POCT Glucose (03/28/2013 9:17 AM EDT) athologist Signature POC Glucose 108 60 - 199 CERNER mg/dL [facility] Comment: Supplemental ranges: <110 mg/dL before meals <200 mg/dL all other times of the day Specimen Anatomical Collection Method Collection Time Receive d Time (Source) Location / / Volume Laterality Blood specimen 03/28/2013 9:17 AM 013 9:17 (specimen) EDT AM EDT Mesha Mcknight MD POINT OF CARE TEST ORDERABLE S Performing Organization Address City/[facility]/ZIP Code Phon e Number [address] [facility] Specimen to Pathology (surgical or derm) [...] MD PATHOLOGY/CYTOLOGY ORDERABLE S Performing Organization Address City/[facility]/ZIP Code Phon e Number [address] [facility] documented in this encounter Visit [...] - Provider: Radha Yao [facility], RN) 2.5 mg, Oral, DAILY, First [...] override documented in this encounter Care Teams Diamond Powder Mixer Relationship Specialty Start Date End Date Angela Holliday APRN PCP - General 01/25/13 04/15/15 [address] [place] [address] documented as of this encounter
--- OUTSIDE RECORDS SUMMARY | 2022-05-20 09:43 | XMS_ITS | Encounter Summary ---
:1945 Author Organization [facility] [place] [address] Care Team Providers Name Role Phone Angela Holliday APRN Primary Care Provider Encounter Details Date Type Department Care Team Description 01/25/2013 Clinical [place] [address] Social History Tobacco Use Types Packs/Day [...] MD [facility] Dr [place], [place] [address] (Wo rk) 05/28/2022 Laboratory Appointment Lab 05/28/2022 Office Visit Cardiology Zulma Dolan MD [facility] [place] [address] Liz Poole PA [facility] [place] [address] 06/10/2022 Office Visit Dermatology Laura Scherer MD [facility] DR TEJA GR-DERMAT [place], [place] [address] (Wo rk) documented as of this encounter Visit Diagnoses Not on filedocumented in this encounter Care Teams Bridge Worker Relationship Specialty Start Date End Date Angela Holliday APRN PCP - General 01/25/13 04/15/[address] [place] [address] documented as of this encounter
--- OUTSIDE RECORDS SUMMARY | 2022-05-20 09:43 | XMS_ITS | Encounter Summary ---
:1945 Author Organization [facility] [place] [address] Care Team Providers Name Role Phone Unknown Primary Care Provider Unavailable Reason for Visit Reason Comments Other Encounter Details Date Type Department Care Team Description 10/05/2012 Telephone Dermatology at [facility] Rigoberto Garcia III, [address] [place] [address] [facility] [phone] TEJA MARIE-DERMAT [place] [address] (Wo rk) Social History Tobacco Use Types [...] Cardiology Zulma Dolan MD [facility] [place], [place] [address] (Wo rk) 05/28/2022 Laboratory Appointment Lab 05/28/2022 Office Visit Cardiology Zulma Dolan MD [facility] [place] [address] Liz Poole PA [facility] [place] [address] 06/10/2022 Office Visit Dermatology Laura Scherer MD [facility] DR TEJA MARIE-DERMAT [place], [place] [address] (Wo rk) documented as of this encounter Visit Diagnoses Not on filedocumented in this encounter Care Teams Sewer Bricklayer Relationship Specialty Start Date End Date Unknown PCP - General 10/04/12 01/24/13 None documented as of this encounter
--- OUTSIDE RECORDS SUMMARY | 2022-05-20 09:43 | XMS_ITS | Encounter Summary ---
:1945 Author Organization [facility] [place] [address] Care Team Providers Name Role Phone Adi Costello MD Primary Care Provider Reason for Visit Reason Comments Annual Exam ckeck his groin and melanoma follow-up Encounter Details Date Type Department Care Team Description 11/21/2010 Follow-Up Dermatology Arik Tipton Melanoma (Primary Dx) [facility] MD Jorge [place] [id number] DERMATOLOGY DEPT . 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 His only complaints are leg cramps, [...] changes: Arik Tipton MD Section of Dermatology [facility] documented in this encounter Plan of Treatment Upcoming Encounters Date Type Specialty Care Team Description 05/28/2022 Appointment Cardiology Zulma Dolan MD [facility] [address] [place], [place] [address] (Wo rk) 05/28/2022 Laboratory Appointment Lab 05/28/2022 Office Visit Cardiology Zulma Dolan MD [facility] [place] [address] Liz Poole PA [facility] [place] [address] 06/10/2022 Office Visit Dermatology Laura Scherer MD [facility] DR TEJA GR-DERMAT [place], [place] [address] (Wo rk) documented as of this encounter Visit Diagnoses Diagnosis Melanoma - Primary Melanoma of skin, site unspecified documented in this encounter Care Teams Smoking Pipes Cleaner Relationship Specialty Start Date End Date Adi Costello MD PCP - General 06/17/10 09/21/11 [address] [place] [address] documented as of this encounter
--- OUTSIDE RECORDS SUMMARY | 2022-05-20 09:43 | XMS_ITS | Encounter Summary ---
:1945 [place] [address] Care Team Providers Name Role Phone MiyaLokeshAngela STACIE Primary Care Provider Encounter Details Date Type Department Care Team Description 03/28/2013 Anesthesia Event Main Operating Room Meredith Calvert MD [facility] [place] [address] [facility] Nolvia Riojas PA [facility] [place] [address] [place] [address] Anesthesia Record Procedure Summary Procedure Name [...] Appointment Cardiology Zulma Dolan MD [facility] [place], [place] [address] (Wo rk) 05/28/2022 Laboratory Appointment Lab 05/28/2022 Office Visit Cardiology Zulma Dolan MD [facility] [place] [address] Liz Poole PA [facility] [place] [address] 06/10/2022 Office Visit Dermatology Laura Scherer MD [facility] [address]MAT [place], [place] [address] (Wo rk) documented as [...] Routine documented in this encounter Care Teams Ski Production Supervisor Relationship Specialty Start Date End Date Angela Holliday APRN PCP - General 01/25/13 04/15/[address] [place] [address] documented as of this encounter
--- OUTSIDE RECORDS SUMMARY | 2022-05-20 09:43 | XMS_ITS | Encounter Summary ---
:1945 Author Organization [facility] [place] [address] Care Team Providers Name Role Phone Brody Berrios MD Primary Care Provider Reason for Visit Reason Comments Annual Exam Encounter Details Date Type Department Care Team Description 09/22/2011 Follow-Up Dermatology Arik Tipton Psoriasis (Primary Dx); [facility] MD Jorge Personal history of other malignant neop lasm of skin Drive [place] [id number] DERMATOLOGY DEPT . 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 His only complaints tail bone [...] Tipton MD Section of Dermatology [facility] documented in this encounter Plan of Treatment Upcoming Encounters Date Type Specialty Care Team Description 05/28/2022 Appointment Cardiology Zulma Dolan MD [facility] [address] [place], [place] [address] (Wo rk) 05/28/2022 Laboratory Appointment Lab 05/28/2022 Office Visit Cardiology Zulma Dolan MD [facility] [place] [address] Liz Poole PA [facility] [place] [address] 06/10/2022 Office Visit Dermatology Laura Scherer MD [facility] [address] [place] [place], [place] [address] (Wo rk) documented as of this encounter Visit Diagnoses Diagnosis Psoriasis - Primary Other psoriasis Personal history of other malignant neop lasm of skin documented in this encounter Care Teams Commercial Loan Reviewer Relationship Specialty Start Date End Date Brody Berrios MD PCP - General 09/22/11 10/03/[address] [place] [address] documented as of this encounter
--- OUTSIDE RECORDS SUMMARY | 2022-05-20 09:43 | XMS_ITS | Encounter Summary ---
:1945 Author Organization [facility] [place] [address] Care Team Providers Name Role Phone NeilSom conner STACIE Primary Care Provider Reason for Visit Reason Comments Establish Care OBST GOITER Encounter Details Date Type Department Care Team Description 01/25/2013 Office Visit General Surgery at [facility] er colloid, toxic, [facility] [place] Eliseo nodular (Primary Dx) [facility] [place] GENERAL SURGERY [id number] [place], [place] [id number] [phone] Social History Tobacco Use Types Packs/Day Years [...] consultation per SOM HOLLIDAY APRN and Elijah Elisa MD because of an enlarging MNG. History [...] the thyroid gland were obtained using a SonoSiTrulioo MicroMaxx and an HFL38/13-6 broadband linear array [...] on physical exam. ROS: No H/O asthma, PR, stroke, pulmonary embolus or phlebitis. Comprehensive review [...] agrees to proceed. Will sign in through [facility]. Consent is signed. Send copy to Dr. SOM HOLLIDAY APRN and Elijah Elias MD. documented in this encounter Plan of Treatment Upcoming Encounters Date Type Specialty Care Team Description 05/28/2022 Appointment Cardiology Zulma Dolan MD [facility] [address] [place] [address] (Wo rk) 05/28/2022 Laboratory Appointment Lab 05/28/2022 Office Visit Cardiology Zulma Dolan MD [facility] [place] [address] Liz Poole PA [facility] [place] [address] 06/10/2022 Office Visit Dermatology Laura Scherer MD [facility] DR [address] [place], [place] [address] (Wo rk) documented as [...] 406 ms MUSE SYSTEM (Bezet) Calculated P [place] 52 degrees MUSE SYSTEM Calculated R [place] 0 degrees MUSE SYSTEM Calculated T [place] 40 degrees MUSE SYSTEM INTERPRETATION Normal sinus [...] storm documented in this encounter Care Teams Song And Dance Performer Relationship Specialty Start Date End Date Som Holliday APRN PCP - General 01/25/13 04/15/[address] [place] [address] documented as of this encounter
--- OUTSIDE RECORDS SUMMARY | 2022-05-20 09:43 | XMS_ITS | Encounter Summary ---
:1945 Author Organization [facility] [place] [address] Care Team Providers Name Role Phone Angela Holliday APRN Primary Care Provider Reason for Referral Surgical (Routine) - Closed Specialty Diagnoses / Procedures Referred By Contact Refer red To Contact General Surgery Diagnoses Elijah Villagomez MD Colacchio, Thomas A, MD [address] [place] [address] [place] [id number] [place] [address] Phone: Fax: Referral ID Status Reason Start Date Expiration Date Visits V isits Requested Authorized [id number] Closed Specialty 01/25/2013 07/24/2013 1 1 Service Requested Reason for Visit Reason Comments Thyroid Problem Encounter Details Date Type Department Care Team Description 01/25/2013 Office Visit Endocrinology at [facility] Elijah Fuentes Goiter (Primary Dx) [facility] [address] [place] [phone] [place] [id number] [phone] Social History Tobacco Use Types Packs/Day Years [...] History 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 All [...] the thyroid gland were obtained using a SonMyTwinPlaceaxx and an HFL38/13-6 broadband linear array transducer. [...] Zulma Dolan MD [facility] [place], [place] [address] (Wo rk) 05/28/2022 Laboratory Appointment Lab 05/28/2022 Office Visit Cardiology Zulma Dolan MD [facility] [place] [id number] Liz Poole PA [facility] [place] [address] 06/10/2022 Office Visit Dermatology Laura Scherer MD [facility] [address] [place], [place] [address] (Wo rk) Scheduled Referrals Name [...] Organization Address City/State/[place] [address] CERNER MILLENNIUM documented in this encounter Visit Diagnoses Diagnosis Goiter - Primary Goiter, unspecified documented in this encounter Care Teams Margarine Maker Relationship Specialty Start Date End Date Angela Holliday APRN PCP - General 01/25/13 04/15/[address] [place] [address] documented as of this encounter
--- OUTSIDE RECORDS SUMMARY | 2022-05-20 09:43 | XMS_ITS | Encounter Summary ---
:1945 Author Organization [facility] [place] [address] Care Team Providers Name Role Phone Angela Holliday APRN Primary Care Provider Encounter Details Date Type Department Care Team Description 03/15/2013 Telephone General Surgery at [facility] Maddison Key, [place] [address] Social History Tobacco Use Types Packs/Day [...] Cardiology Zulma Dolan MD [facility] [place], [place] [address] (Wo rk) 05/28/2022 Laboratory Appointment Lab 05/28/2022 Office Visit Cardiology Zulma Dolan MD [facility] [place] [address] Liz Poole PA [facility] [place] [address] 06/10/2022 Office Visit Dermatology Laura Scherer MD [facility] [address] [place], [place] [address] (Wo rk) documented as of this encounter Visit Diagnoses Not on filedocumented in this encounter Care Teams Hvac Service Tech Relationship Specialty Start Date End Date Angela Holliday APRN PCP - General 01/25/13 04/15/[address] [place] [address] documented as of this encounter
--- OUTSIDE RECORDS SUMMARY | 2022-05-20 09:43 | XMS_ITS | Encounter Summary ---
:1945 Author Organization [facility] Address [facility] [place] [address] Care Team Providers Name Role Phone Unknown Primary Care Provider Unavailable Reason for Visit Reason Comments Skin Check Encounter Details Date Type Department Care Team Description 10/04/2012 Follow-Up Dermatology at [facility] Forman soriasis (Primary Dx); Abdelrahman HOOPER MD Neoplasm of unspecified nature of bone, soft tissue, and skin; [address] [facility] Skin lesion of chest wall; [place] [address] Seborrheic psoriasis- scalp and ingtergl uteal area [phone] [facility]-DER[facility] [place], [place] [address] (Wo rk) Social History [...] changes: Rigoberto Albarran MD Section of Dermatology [facility] documented in this encounter Plan of Treatment Upcoming Encounters Date Type Specialty Care Team Description 05/28/2022 Appointment Cardiology Zulma Dolan MD [facility] [address] [place], [place] [address] (Wo rk) 05/28/2022 Laboratory Appointment Lab 05/28/2022 Office Visit Cardiology Zulma Dolan MD [facility] [place] [address] Liz Poole PA [facility] [place] [address] 06/10/2022 Office Visit Dermatology Laura Scherer MD [facility] [address] OGY [place], [place] [address] (Wo rk) documented as [...] [facility] [place] Report ? Provider: ?? RIGOBERTO ALBARRAN III Pt. Name: ?? DON HOANG ?A ? Acc #: ?[id number] ? Pt. ? Col Date: ?? 3 [...] MD PATHOLOGY/CYTOLOGY ORDERABLE S Performing Organization Address City/[facility]/ZIP Code Phon e Number [address] [facility] Specimen to Pathology (NON-OR) (10/04/2012 9:55 AM EDT) Specimen Anatomical Collection Method Collection Time Receive d Time (Source) Location / / Volume Laterality AP Specimen 10/04/2012 9:55 AM 201 3 9:56 EDT AM EDT Narrative [facility] - 10/04/2012 9:56 AM E DT Specimen requisition ordered. ??Separate Pathology report to follow Rigoberto Albarran III, MD PATHOLOGY/CYTOLOGY ORDERABLE S Performing Organization Address City/[facility]/ZIP Code Phon e Number [address] [facility] documented in this encounter Visit Diagnoses Diagnosis Psoriasis - Primary Other psoriasis Neoplasm of unspecified nature of bone, soft tissue, and skin Skin lesion of chest wall Unspecified disorder of skin and subcuta neous tissue Seborrheic psoriasis- scalp and ingtergl uteal area Other psoriasis documented in this encounter Care Teams Certified Coder Relationship Specialty Start Date End Date Unknown PCP - General 10/04/12 01/24/13 None documented as of this encounter
--- OUTSIDE RECORDS SUMMARY | 2022-05-20 09:44 | XMS_ITS | Encounter Summary ---
:1945 Author Organization [facility] Address [address] [place] [address] Care Team Providers Name Role Phone Lovely Vicente MD Primary Care Provider Encounter Details Date Type Department Care Team Description 04/04/2021 Lab Requisition [facility] Outr Resulting Lab, Pathology & Laboratory Provider General acute hospital [address] [place] [address] Social History Tobacco Use Types Packs/Day Years [...] (04/03/2021 12:15 EDT) Giardia and Cryptosporidium Cryptosporidium [facility] Cryptosporidium Antigen Neg and Antigen Neg and CENTER Giardia Antigen Neg Giardia Antigen Neg LABORATORY SERVICES Specimen Feces - Specimen from rectum (specimen) Performing Organization Address City/State/ZIP Code Phon e Number [facility] [address] [place] [address] SERVICES documented in this encounter Visit Diagnoses Not on filedocumented in this encounter Care Teams Coverer Relationship Specialty Start Date End Date Lovely Vicente MD PCP - General 07/13/14 documented as of this encounter
--- OUTSIDE RECORDS SUMMARY | 2022-05-20 09:44 | XMS_ITS | Encounter Summary ---
:1945 Author Organization [facility] Address [address] [place] [address] Care Team Providers Name Role Phone Unavailable Primary Care Provider Unavailable Encounter Details Date Type Department Care Team Description 03/05/2014 Hospital Encounter [facility]- Heather Unknown, Provider, [facility] 0 [facility] [phone] [place] [address] (Work) [phone] Social History Tobacco Use Types Packs/Day Years Used Date Never Assessed Sex Assigned at Date Recorded Not on file documented as of this encounter Discharge Disposition Disposition Code Departure Means Destination Home or Self Senior Care documented in this encounter Plan of Treatment Not on filedocumented as of this encounter Visit Diagnoses Not on filedocumented in this encounter
--- OUTSIDE RECORDS SUMMARY | 2022-05-20 09:44 | XMS_ITS | Encounter Summary ---
:1945 Author Organization [facility] Address [address] [place] [address] Care Team Providers Name Role Phone Lovely Vicente MD Primary Care Provider Encounter Details Date Type Department Care Team Description 01/01/2020 Lab Requisition [facility] Outr Resulting Lab, Pathology & Laboratory Provider [facility] [address] [place] [address] Social History Tobacco Use Types Packs/Day Years [...] 2.1 0.0 - 6.5 ng/mL [facility] Specimen Blood - Venous blood (substance) Narrative [facility] - 01/02/2020 10:40 EDT NOTE: Serum PSA concentration should not be in terpreted as absolute evidence for the presence or absence of malignant disease. Assayed on Siemens ADVIA Centaur XPT usi ng chemiluminescent technology.??Values obtained by using different assay methods cannot be used interchangeably. Performing Organization Address City/State/ZIP Code Phon e Number [facility] [address] [place] [address] SERVICES documented in this encounter Visit Diagnoses Not on filedocumented in this encounter Care Teams Analyst Programmer Relationship Specialty Start Date End Date Lovely Vicente MD PCP - General 07/13/14 documented as of this encounter
--- OUTSIDE RECORDS SUMMARY | 2022-05-20 09:44 | XMS_ITS ---
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 Problem Critical ischemia I99.8 Active of lower extremity Problem Atherosclerosis I70.90 Active 3871 6007 Problem Type 2 diabetes E11.628 Active mellitus with other skin complications Problem 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 40 ; Acquired deformi ty of right foot M21.961 ; L luis term current use of i nsulin Z79.4 ; History of art erial bypass of lower extremi ty Z95.828 ; Atherosclerosis I70.90 and History of Lisfr anc amputation of fo ot Z89.439 [facility] Feb, Type 2 diabet es mellitus [address] [place], [place] with diabe [place]ic neuropathy, [address] unspecified E11. 40 ; Acquired deformi ty of right foot M21.961 ; L luis term current use of i nsulin Z79.4 ; History of art erial bypass of lower extremi ty Z95.828 ; Atherosclerosis I70.90 and History of Lisfr anc amputation of fo ot Z89.439 [facility] November, [place] [address] [facility] [facility] November, Type 2 [place]ete [place] [address] with diabeti c neuropathy, unspecified E11. 40 ; Acquired deformi ty of right foot M21.961 ; L luis term current use of i nsulin Z79.4 ; History of art erial bypass of lower extremi ty Z95.828 ; Atherosclerosis I70.90 and History of Lisfr anc amputation of fo ot Z89.439 [facility] 10 Aug, 2019 Type 2 [place] [address] with other skin complications E1 1.628 ; Tinea pedis of l eft foot B35.3 ; Type 2 d iabetes mellitus with di abetic neuropathy, unsp ecified E11.40 ; Acquire d deformity of right foot M2 1.961 ; USP current use of insulin Z79.4 ; History of arterial bypass of lower extremity Z95.828 and Athe rosclerosis I70.90 [facility] Jun, [place] [address] [address] Jun, [place] [address] [address] Jun, Type 2 diabet es mellitus [place], [place] with other skin [address] complications E1 1.628 ; Acquired deformi ty of right foot M21.961 ; T ype 2 diabetes mellitu s with diabetic neuropa thy, unspecified E11. 40 ; terminal superintendent current use of insulin Z79.4 and Histor y of arterial bypass of lower extremity Z95.82 8 [facility] Feb, Type 2 [place] [address] with other s kin complications E1 1.628 ; Acquired deformi ty of right foot M21.961 ; T ype 2 diabetes mellitu s with diabetic neuropa thy, unspecified E11. 40 ; USP current use of insulin Z79.4 and Histor y of arterial bypass of lower extremity Z95.82 8 [facility] November, Tinea pedis o f left foot [place], [place] B35.3 ; Ty pe 2 diabetes [address] mellitus with ot her skin complications E1 1.628 ; Acquired deformi ty of right foot M21.961 ; T ype 2 diabetes mellitu s with diabetic neuropa thy, unspecified E11. 40 ; terminal superintendent current use of insulin Z79.4 and Histor y of arterial bypass of lower extremity Z95.82 8 [facility] November, [place] [address] [address] Aug, Type 2 diabet es mellitus [place], [place] with diabe tic neuropathy, [address] unspecified E11. 40 ; Acquired deformi ty of right foot M21.961 ; P eripheral arterial disease I73.9 ; History of arter ial bypass of lower extremi ty Z95.828 ; USP curren t use of insulin Z79.4 an d History of Lisfranc amputat ion of foot Z89.439 UNKNOWN Jul, [facility] 11 Jun, 2018 Type 2 [place]ete [place] [address] with diabeti c neuropathy, unspecified E11. 40 [facility] Apr, Edema of both legs R60.0 ; [place], [place] Acquired d eformity of right [address] foot M21.961 ; P eripheral arterial disease I73.9 ; History of arter ial bypass of lower extremi ty Z95.828 ; terminal superintendent curren t use of insulin Z79.4 an d Type 2 diabetes mellitu s with diabetic neuropa thy, unspecified E11. 40 [facility] Mar, [place] [address] [address] Mar, Edema of both legs R60.0 ; [place] Acquired d eformity of right [address] foot M21.961 ; P eripheral arterial disease I73.9 ; History of arter ial bypass of lower extremi ty Z95.828 ; terminal superintendent curren t use of insulin Z79.4 an d Type 2 diabetes mellitu s with diabetic neuropa thy, unspecified E11. 40 [facility] Feb, Edema of both legs R60.0 ; [place] [address] Ulcer of lef t calf, limited to breakdown of skin L97.221 ; Acquired defor mity of right foot M21.9 61 ; Peripheral arter ial disease I73.9 ; History of arterial bypass of lower extremity Z95.828 ; Long t erm current use of insulin Z 79.4 and Type 2 diabetes mellitus with diabetic ne uropathy, unspecified E11. 40 [facility] 1 Feb, [place] [address] [facility] Feb, Edema of both legs R60.0 ; [place] [address] Ulcer of rig ht calf, limited to [...] 40 [facility] Feb, [place] [address] [facility] [address] [facility] [address] Feb, [place] [address] [facility] [address] [facility] [address] Jan, [place] [address] [facility] [address] [facility] [address] Jan, [place] [address] [facility] [address] [facility] [address] Jan, [place] [address] [facility] [address] [facility] [address] Jan, [place] [address] [facility] [address] [facility] [address] Jan, [place] [address] [facility] [address] [facility] [address] Dec, [place] [address] [facility] [address] [facility] [address] Dec, [place] [address] [facility] [address] [facility] [address] Dec, [place] [address] [facility] [address] [facility] [address] Dec, [place] [address] [facility] Dec, [place] [address] [facility] [address] [facility] [address] Dec, [place] [address] [facility] November, [place] [address] [facility] November, [place] [address] [facility] November, [place] [address] [facility] November, [place] [address] [facility] November, [place] [address] [facility] November, [place] [address] UNKNOWN November, [facility] [address] November, [place]ICE [place] [address] [facility] November, [place], [place] [address] [facility] Oct, [place] [address] [facility] Oct, [place] [address] [facility] Oct, [place] [address] [facility] [address] 18 Oct, 2017 [place] [address] [facility] 16 Oct, 2017 [place] [address] [facility] [facility] [place] 16 Oct, 2017 [facility] [address] [facility] Oct, [place] [address] [facility] Oct, [place] [address] [facility] Oct, [place] [address] [facility] [address] [place] Sep[facility] [address] [facility] Sep, [place] [address] [facility] [address] [place] Sep, [place] [address] [facility] [facility] [place] Sep, [place] [address] [facility] [address] Sep, [place] [address] [facility] [address] [place] Sep, Critical ischemi a of lower [place] [address] extremity I 99.8 ; Local infection of the skin and subcutaneous tis lindsey, unspecified L08. 9 and Type 2 diabetes mellitu s with other skin complicatio ns E11.628 [facility] Sep, [place] [address] [facility] [address] [facility] [address] Sep, [place] [address] [facility] [address] [facility] [address] Sep, [place] [address] [facility] [address] [facility] [address] 14 Sep, [address] [place] [address] [facility] Sep, [place] [address] [facility] Sep, [place] [address] [facility] [address] [facility] Sep, [place] [address] [facility] Sep, [place] [address] [facility] [address] [facility] [address] Aug, [place] [address] [facility] [address] [place] Aug, [facility] [address] [facility] [address] [place] Aug, [place] [address] SURG[facility] Aug, [place] [address] SURG[facility] [address] [facility] Aug, [place] [address] [facility] Aug, [place] [address] ORTHOPEDIC OFFICE [address] [facility] Aug, Pre-op exam Z01.818 [place] [address] [facility] Aug, [place] [address] [facility] Aug, [place] [address] [facility] Aug, [place] [address] IMMUNIZATIONS No Known Immunizations SOCIAL HISTORY Qualifiers [...] subcutaneously 22 24h Active units/mL daily [place] Active Ciclopirox Externally Twice 1 application 12h [...] For Report MR Lower Ext R w/o ([id number]) 2017-09-16 See Below For Report CR C-ARM [...] 03/04/18 - 6.7, [facility] [facility], f/u - bilateral leg edema, Pt [...] at wound center,lab work done 03/07/2018 @ [facility], Patient came in with tubigrip bilateral , wound clin est, wound clinest, Wound CTR-follow up, Wound CTR-follow up, Wound CTR-follow up, Peer to Peer w/ Dr. Espino, Wound CTR-follow up, Wound CTR-follow up, Marine Firefighter Documentation, LAB, Wound CTR-follow up, Wound CTR-follow up, Wound CTR-follow up, Wound CTR-follow up, LAB, LAB, Wound CTR- follow up, Wound CTR-follow up, Wound CTR-follow up, Marine Firefighter Documentation, [facility], Wound CTR-follow up, Wound CTR-follow up, Pull PICC Line, Wound CTR-follow up, Wound CTR-follow up, LAB, Still taking doxycycline 100mg? , Wound CTR-follow up, Wound CTR-follow up, Wound CTR-follow up, Marine Firefighter Documentation, Wound CTR-follow up, Wound CTR-follow up, Call back, Marine Firefighter Documentation, Marine Firefighter Documentation, Marine Firefighter Documentation, Wound CTR-follow up, WCC, Wound CTR-follow up, Wound CTR-follow up, labs, D/C planning, bailey smetatarsal amputation of right foot, LAB, LAB, Wound CTR-NEW Insurance Providers Counts Include [facility] Health Member Patient Patient Patient Patient Patient Subscriber Subscriber Subscriber Group Insurance Plan Plan Plan Plan ID Relationship Address Phone Name Date of ID Name Date of No Type Insurance Insurance Insurance Coverage to Subscriber Address Phone Name Dates S-BLUE [phone] S-BLUE [place] [id number] [address] [place] [address] [place] OTHER [address] [place] [phone] OTHER GREGORY [id number] GRANT 1^MAIN CONSTITUTION PARTY [facility] PAYOR [id number] MEDICARE 3000 [address]FF[address] MEDICARE self [place] [id number] 1 [id number] [facility] [id number] SELF PAY [address] STRE[address] SELF PAY self [place] [id number] AFTER AJ ALVAREZASTER AFTER AJ BLUE [facility] [id number] [place]
--- OUTSIDE RECORDS SUMMARY | 2022-05-20 09:44 | XMS_ITS | Encounter Summary ---
:1945 Author Organization [facility] Address [address] [place] [address] Care Team Providers Name Role Phone Lovely Vicente MD Primary Care Provider Encounter Details Date Type Department Care Team Description 04/04/2021 Lab Requisition [facility] Outr Resulting Lab, Pathology & Laboratory Provider [facility] [address] [place] [address] Social History Tobacco Use Types Packs/Day Years [...] Pathologist Sig nature Salmonella PCR Negative Negative [facility] Shigella/Enteroinvasive Negative Negative [facility] HN LAB CAMPYLOBACTER PCR Negative Negative [facility] Shiga Toxin PCR Negative Negative [facility] Specimen Feces - Specimen from rectum (specimen) Performing Organization Address City/State/ZIP Code Phon e Number [facility] [address] [place] [address] SERVICES documented in this encounter Visit Diagnoses Not on filedocumented in this encounter Care Teams Deployment Specialist Relationship Specialty Start Date End Date Lovely Vicente MD PCP - General 07/13/14 documented as of this encounter
--- OUTSIDE RECORDS SUMMARY | 2022-05-20 09:44 | XMS_ITS | Encounter Summary ---
:1945 Author Organization [facility] Address [address] [place] [address] Care Team Providers Name Role Phone Unknown, Provider Primary Care Provider Encounter Details Date Type Department Care Team Description 03/05/2014 Results Only [facility] [place] [facility] Eris Taylor MD Laboratory Services - [address] [place] [address] [place] [address] [phone] Social History Tobacco Use Types Packs/Day Years [...] ? DON HOANG ? Accession #: ? [id number] ? : ? 1945 (Age: 68) ??M [...] e Number [facility] [address] [place] [address] SERVICES [facility] [address] [place] [address] documented in this encounter Visit Diagnoses Not on filedocumented in this encounter Care Teams Sidewalk Inspector Relationship Specialty Start Date End Date Unknown, Provider, PCP - General 03/07/14 07/12/14 documented as of this encounter
--- OUTSIDE RECORDS SUMMARY | 2022-05-20 09:44 | XMS_ITS | Encounter Summary ---
:1945 Author Organization [facility] Address [address] [place] [address] Care Team Providers Name Role Phone Lovely Vicente MD Primary Care Provider Encounter Details Date Type Department Care Team Description 01/28/2022 Lab Requisition [facility] Outr Resulting Lab, Pathology & Laboratory Provider [facility] [address] [place] [address] Social History Tobacco Use Types Packs/Day Years Used Date Never Assessed Sex Assigned at Date Recorded Not on file documented as of this encounter Plan of Treatment Not on filedocumented as of this encounter Procedures Procedure Name Priority Date/Time Associated Diagnosis Comme nts COVID-19 TEST [facility] Today 01/27/2022 14:30 LAB PCR EDT COVID-19 TESTING Routine 01/27/2022 14:30 Results for this EDT procedure are i n the results section. documented in this encounter Results COVID-19 TEST [facility] LAB PCR (01/27/2022 14:30 EDT) Specimen Swab Performing Organization Address City/State/ZIP Code Phon e Number [facility] [address] [place] [address] SERVICES COVID-19 TESTING (01/27/2022 14:30 EDT) COVID-19 [...] was performed using the meliton SARS-CoV-2 assay ([employer] on the Meliton 6800 System Performing Lab Meliton 6800 [facility] Lab [facility] Specimen Swab Performing Organization Address City/State/ZIP Code Phon e Number [facility] [address] [place] [address] SERVICES documented in this encounter Visit Diagnoses Not on filedocumented in this encounter Care Teams Hygiene Coordinator Relationship Specialty Start Date End Date Lovely Vicente MD PCP - General 07/13/14 documented as of this encounter
--- OUTSIDE RECORDS SUMMARY | 2022-05-20 09:44 | XMS_ITS | Encounter Summary ---
:1945 Author Organization [facility] Address [address] [place] [address] Care Team Providers Name Role Phone Unknown, Provider Primary Care Provider Encounter Details Date Type Department Care Team Description 07/11/2014 Results Only [facility] Shruthi Horowitz MD Laboratory Services - [address] [place] [address] [place] [address] 0 [facility] [place] [address] [phone] Social History Tobacco Use Types Packs/Day Years [...] 8:55 EST) Pathology Report: SURGICAL PATHOLOGY REPORT [facility] Reports generated via electronic interface contain sorin ginal data; LABORATORY however they are lacking the format of the original re port. SERVICES Caution should be taken when reading/interpreting unfo rmatted reports. Name: ? DON HOANG ? Accession #: ? [id number] ? : ? 1945 (Age: 69) ??M [...] 6.5 x 3.0 cm in aggreg ate). Automatic Brine Mixer Operator sections are submitted in 1- 10 (approximately 40% of the specimen is submitted). Viry Nunez 07/12/2014 11:21 AM End of Report Specimen Performing Organization Address City/State/ZIP Code Phon e Number [facility] [address] [place] [address] SERVICES documented in this encounter Visit Diagnoses Not on filedocumented in this encounter Care Teams Crime Specialist Relationship Specialty Start Date End Date Unknown, Provider, PCP - General 03/07/14 07/12/14 documented as of this encounter
--- OUTSIDE RECORDS SUMMARY | 2022-05-20 09:44 | XMS_ITS | Encounter Summary ---
:1945 Author Organization [facility] Address [address] [place] [address] Care Team Providers Name Role Phone Lovely Vicente MD Primary Care Provider Encounter Details Date Type Department Care Team Description 02/20/2022 Lab Requisition [facility] Outr Resulting Lab, Pathology & Laboratory Provider [facility] [address] [place] [address] Social History Tobacco Use Types Packs/Day Years [...] Pathologist Sig nature PSA 2.7 <=6.5 ng/mL [facility] Specimen Blood - Venous blood (substance) Narrative [facility] - 02/20/2022 18:17 EDT NOTE: Serum PSA concentration should not be in terpreted as absolute evidence for the presence or absence of malignant disease. Assayed on Siemens [employer] Centaur XPT usi ng chemiluminescent technology.??Values obtained by using different assay methods cannot be used interchangeably. Performing Organization Address City/State/ZIP Code Phon e Number [facility] [address] [place] [address] SERVICES documented in this encounter Visit Diagnoses Not on filedocumented in this encounter Care Teams Airline Station Agent Relationship Specialty Start Date End Date Lovely Vicente MD PCP - General 07/13/14 documented as of this encounter
--- OUTSIDE RECORDS SUMMARY | 2022-05-20 09:44 | XMS_ITS | Clinical Summary ---
:1945 Author Organization [facility] Address [address] [place] [address] Care Team Providers Name Role Phone Lovely Viecnte MD Primary Care Provider Encounters Date Type [...] Pathologist Sig nature PSA 2.7 <=6.5 ng/mL [facility] Specimen Blood - Venous blood (substance) Narrative [facility] - 02/20/2022 18:17 EDT NOTE: Serum PSA concentration should not be in terpreted as absolute evidence for the presence or absence of malignant disease. Assayed on [employer] Centaur XPT usi ng chemiluminescent technology.??Values obtained by using different assay methods cannot be used interchangeably. Performing Organization Address City/State/ZIP Code Phon e Number [facility] [address] [place] [address] SERVICES from Last 3 Months Care Teams Director School Of Nursing Relationship Specialty Start Date End Date Lovely Vicente MD PCP - General 07/13/14
--- OUTSIDE RECORDS SUMMARY | 2022-05-20 09:44 | XMS_ITS | Encounter Summary ---
:1945 Author Organization [facility] Address [address] [place] [address] Care Team Providers Name Role Phone Lovely Vicente MD Primary Care Provider Encounter Details Date Type Department Care Team Description 08/11/2019 Lab Requisition [facility] Unknown, Provider, Pathology & Laboratory [facility] [address] [place] [address] Social History Tobacco Use Types Packs/Day Years [...] (08/11/2019 14:35 EST) Giardia and Cryptosporidium Cryptosporidium [facility] Cryptosporidium Antigen Neg and Antigen Neg and CENTER Giardia Antigen Neg Giardia Antigen Neg LABORATORY SERVICES Specimen Feces - Specimen from rectum (specimen) Performing Organization Address City/State/ZIP Code Phon e Number [facility] [address] [place] [address] SERVICES documented in this encounter Visit Diagnoses Not on filedocumented in this encounter Care Teams Plant Specialist Relationship Specialty Start Date End Date Lovely Vicente MD PCP - General 07/13/14 documented as of this encounter
--- OUTSIDE RECORDS SUMMARY | 2022-05-20 09:44 | XMS_ITS | Encounter Summary ---
:1945 Author Organization [facility] Address [address] [place] [address] Care Team Providers Name Role Phone Lovely Vicente MD Primary Care Provider Encounter Details Date Type Department Care Team Description 08/11/2019 Lab Requisition [facility] Unknown, Provider, Pathology & Laboratory [facility] [address] [facility] [place] [address] Social History Tobacco Use Types Packs/Day Years [...] Pathologist Sig nature Salmonella PCR Negative Negative [facility] Shigella/Enteroinvasive Negative Negative [facility] R E. coli LABORATORY SERVICES HN LAB CAMPYLOBACTER PCR Negative Negative [facility] SERVICES Shiga Toxin PCR Negative Negative [facility] Specimen Feces - Specimen from rectum (specimen) Performing Organization Address City/State/ZIP Code Phon e Number [facility] [address] [place] [address] SERVICES documented in this encounter Visit Diagnoses Not on filedocumented in this encounter Care Teams Plate Worker Helper Relationship Specialty Start Date End Date Lovely Vicente MD PCP - General 07/13/14 documented as of this encounter
--- OUTSIDE RECORDS SUMMARY | 2022-05-22 08:14 | XMS_ITS | Encounter Summary ---
:1945 Author Organization [facility] [place] [address] Care Team Providers Name Role Phone Lovely Vicente MD Primary Care Provider Reason for Visit Reason Onset Date Comments Advice Only 01/28/2022 Encounter Details Date Type Department Care Team Description 01/28/2022 Telephone Cardiology at [facility] Chitra Angela, [place] [address] Social History Tobacco Use Types Packs/Day [...] Fatima assists patient with medications. Number for geophysical laboratory supervisor scheduling given and she will call them to verify this information Meds reviewed. As per our form from geophysical laboratory supervisor Eliquis hold for 48 hours prior. [...] Dolan MD [facility] [address] [place], [place] [address] (Wo rk) 05/28/2022 Laboratory Appointment Lab 05/28/2022 Office Visit Cardiology Zulma Dolan MD [facility] [place] [address] Liz Poole PA [facility] [place] [address] 06/10/2022 Office Visit Dermatology Laura Scherer MD [facility] [address] [place], [place] [address] (Wo rk) documented as of this encounter Visit Diagnoses Not on filedocumented in this encounter Care Teams Agriculture Internship Relationship Specialty Start Date End Date Lovely Vicente MD PCP - General 04/16/[address] [place] [address] documented as of this encounter
--- OUTSIDE RECORDS SUMMARY | 2022-05-22 08:14 | XMS_ITS | Encounter Summary ---
:1945 Author Organization [facility] [place] [address] Care Team Providers Name Role Phone Lovely Vicente MD Primary Care Provider Encounter Details Date Type Department Care Team Description 02/24/2022 Orders Only Cardiology at [facility] Liz Poole, Chronic systolic heart [facility] [place] [address] Cardiology Dept [place], [place] [address] Social History Tobacco Use Types [...] Zulma Dolan MD [facility] er [address] [place], [place] [address] (Wo rk) 05/28/2022 Laboratory Appointment Lab 05/28/2022 Office Visit Cardiology Zluma Dolan MD [facility] [place] [address] Liz Poole PA [facility] [place] [address] 06/10/2022 Office Visit Dermatology Laura Scherer MD [facility] ER DR [address] [place], [place] [address] (Wo rk) documented as of this encounter Visit Diagnoses Diagnosis Chronic systolic heart failure documented in this encounter Care Teams Digital Asset Coordinator Relationship Specialty Start Date End Date Lovely Vicente MD PCP - General 04/16/[address] [place] [address] documented as of this encounter
--- OUTSIDE RECORDS SUMMARY | 2022-05-22 08:14 | XMS_ITS | Encounter Summary ---
:1945 Author Organization [facility] [place] [address] Care Team Providers Name Role Phone Lovely Vicente MD Primary Care Provider Encounter Details Date Type Department Care Team Description 12/15/2021 Telephone Cardiology at [facility] Barbara [place]era, [place] [address] Social History Tobacco Use Types Packs/Day [...] Zulma Dolan MD [facility] [place], [place] [address] (Wo rk) 05/28/2022 Laboratory Appointment Lab 05/28/2022 Office Visit Cardiology Zulma Dolan MD [facility] [place] [address] Liz Poole PA [facility] [place] [address] 06/10/2022 Office Visit Dermatology Laura Scherer MD [facility] [address] [place], [place] [address] (Wo rk) documented as of this encounter Visit Diagnoses Not on filedocumented in this encounter Care Teams Senior Mechanical Technician Relationship Specialty Start Date End Date Lovely Vicente MD PCP - General 04/16/15 [facility] [address] [place] [address] documented as of this encounter
--- OUTSIDE RECORDS SUMMARY | 2022-05-22 08:14 | XMS_ITS | Encounter Summary ---
:1945 Author Organization [facility] [place] [address] Care Team Providers Name Role Phone Lovely Vicente MD Primary Care Provider Reason for Visit Reason Onset Date Comments Follow-up 02/23/2022 Medication adjustmen t and new med Encounter Details Date Type Department Care Team Description 02/23/2022 Telephone Cardiology at [facility] Martha Comer, Follow-up ([facility] RN adjustbrandon t and new [place]) [place] [address] Social History Tobacco Use Types Packs/Day [...] order for BMP and sent to [facility]. will call [facility] to make an appointment for next Wednesday03/04/22. [...] tablet) daily. She will correct his pill production control planner to the new dose. Will need to check with STEPHANIE Poole about repeat BMP to recheck K+ level. If yes he will get the test done at [facility]. They are aware that he will need to make an appt at [facility] to get the test done. Entresto: states [...] if he qualifies for assistance from the [employer]. She is thankful for the assistance, as he is taking insulin that is very expensive too. Instructed to call this typewriter assembler, if he does qualify for assistance from [employer] and that he has gotten the medication [...] Zulma Dolan MD [facility] [place], [place] [address] (Wo rk) 05/28/2022 Laboratory Appointment Lab 05/28/2022 Office Visit Cardiology Zulma Dolan MD [facility] [place] [address] Liz Poole PA [facility] [place] [address] 06/10/2022 Office Visit Dermatology Laura Scherer MD [facility] [address] [place], [place] [address] (Wo rk) documented as of this encounter Visit Diagnoses Not on filedocumented in this encounter Care Teams It Infrastructure Manager Relationship Specialty Start Date End Date Lovely Vicente MD PCP - General 04/16/[address] [place] [address] documented as of this encounter
--- OUTSIDE RECORDS SUMMARY | 2022-05-22 08:14 | XMS_ITS | Encounter Summary ---
:1945 Author Organization [place] [address] Care Team Providers Name Role Phone Lovely Vicente MD Primary Care Provider Reason for Visit Reason Onset Date Comments Medication Refill 03/11/2022 Encounter Details Date Type Department Care Team Description 03/06/2022 Refill Cardiology at [facility] Liz Poole PA Medication Refill [facility] Jorge mcnamara [facility] [place] [address] Cardiology Dept [phone] [place], [place] [address] (Wo rk) Social History Tobacco [...] MD [facility] er [address] [place], [place] [address] (Wo rk) 05/28/2022 Laboratory Appointment Lab 05/28/2022 Office Visit Cardiology Zulma Dolan MD [facility] [place] [address] Liz Poole PA [facility] [place] [address] 06/10/2022 Office Visit Dermatology Laura Scherer MD [facility] ER [address] [place], [place] [address] (Wo rk) documented as of this encounter Visit Diagnoses Not on filedocumented in this encounter Care Teams Host/Hostess Ground Relationship Specialty Start Date End Date Lovely Vicente MD PCP - General 04/16/[address] [place] [address] documented as of this encounter
--- OUTSIDE RECORDS SUMMARY | 2022-05-22 08:14 | XMS_ITS | Encounter Summary ---
:1945 Author Organization [facility] [place] [address] Care Team Providers Name Role Phone Lovely Vicente MD Primary Care Provider Reason for Visit Reason Onset Date Comments Medication Refill 12/12/2021 Torsemide Encounter Details Date Type Department Care Team Description 12/12/2021 Refill Cardiology at [facility] Janneth Padilla, Medication Refill [facility] STEPHANIE ([place]) [place] [address] CARDIOLOGY DEPT. [place], [place] [address] (Wo rk) Social History [...] MD [facility] er [place], [place] [address] (Wo rk) 05/28/2022 Laboratory Appointment Lab 05/28/2022 Office Visit Cardiology Zulma Dolan MD [facility] [place] [address] Liz Poole PA [facility] [place] [address] 06/10/2022 Office Visit Dermatology Laura Scherer MD [facility] ER DR [address] [place], [place] [address] (Wo rk) documented as of this encounter Visit Diagnoses Diagnosis Chronic systolic heart failure documented in this encounter Care Teams Optical Engineering Technician Relationship Specialty Start Date End Date Lovely Vicente MD PCP - General 04/16/[address] [place] [address] documented as of this encounter
--- OUTSIDE RECORDS SUMMARY | 2022-05-22 08:14 | XMS_ITS | Encounter Summary ---
:1945 Author Organization [facility] [place] [address] Care Team Providers Name Role Phone Lovely Vicente MD Primary Care Provider Encounter Details Date Type Department Care Team Description 02/19/2022 Laboratory Appointment Lab 3L [facility] [place] [id number] Social History Tobacco Use Types Packs/Day Years [...] MD [facility] er [address] [place], [place] [address] (Wo rk) 05/28/2022 Laboratory Appointment Lab 05/28/2022 Office Visit Cardiology Zulma Dolan MD [facility] [place] [address] Liz Poole PA [facility] [address] 06/10/2022 Office Visit Dermatology Lauar Scherer MD [facility] DR [address] [place] [address] (Wo rk) documented as of this encounter [...] (ANC) 5.49 1.70 - [facility] 6.10 [facility] x10(3)/[facility] LABORATORY Lymphocytes % 10.8 % [facility] LABORATORY Lymphocytes Abs 0.8 (L) 0.9 - 3.2 [facility] x10(3)/[facility] LABORATORY Monocytes % 10.2 % [facility] LABORATORY Monocyte Abs 0.7 0.3 - 0.9 [facility] x10(3)/[facility] LABORATORY Eosinophils % 1.2 % [facility] LABORATORY Eosinophils Abs 0.1 0.0 - 0.4 [facility] x10(3)/[facility] LABORATORY Basophils % 0.8 % [facility] LABORATORY Basophils Abs 0.1 0.0 - 0.1 [facility] x10(3)/[facility] LABORATORY Immature Gran % 1.00 % [facility] [...] Organization Address City/State/[place] [address] (ABNORMAL) Hemogram (02/19/2022 8:06 AM EDT) Analysis Performed At Patho logist Time Signature WBC 7.2 4.0 - 9.5 [facility] x10(3)/[facility] LABORATORY RBC 4.41 (L) 4.58 - [facility] 5.54 [facility] x10(6)/[facility] LABORATORY Hemoglobin 13.2 (L) 13.7 - [facility] 16.5 g/dL [facility] LABORATORY Hematocrit 40.9 40.5 - [facility] 48.5 % [facility] LABORATORY MCV 92.7 82.9 - [facility] 93.1 [facility] LABORATORY MCH 29.9 27.5 - [facility] 32.1 pg [facility] LABORATORY MCHC 32.3 32.0 - [facility] 35.7 g/dL [facility] LABORATORY Platelets 191 145 - 357 [facility] x10(3)/[facility] LABORATORY RDWSD 53.6 (H) 36.0 - [facility] 45.0 [facility] LABORATORY RDWCV 15.6 (H) 11.4 - [facility] 13.8 % [facility] LABORATORY MPV 8.7 7.6 - 12.9 [facility] LABORATORY nRBC % Auto 0.0 % [facility] LABORATORY nRBC Abs Auto 0.000 0.000 - [facility] 0.000 [facility] x10(3)/[facility] LABORATORY Specimen Anatomical Collection Method Collection Time Receive d Time (Source) Location / / Volume Laterality Blood 02/19/2022 8:06 AM 2 8:09 EDT AM EDT Resulting Agency Comment Spec In Lab Liz BROWN HEMATOLOGY ORDERABLES Performing Organization Address City/[facility]/[place] [address] (ABNORMAL) pro-Brain Natriuretic Peptide [...] Organization Address City/State/[place] [address] (ABNORMAL) Basic Metabolic Panel (non-fasting) (02/19/2022 8:06 AM EDT) P athologist Signature Glucose Lvl 139 65 - 199 [facility] mg/dL [facility] [...] Organization Address City/State/[place] [address] documented in this encounter Visit Diagnoses Diagnosis Chronic systolic heart failure documented in this encounter Care Teams Rear Admiral Relationship Specialty Start Date End Date Lovely Vicente MD PCP - General 04/16/[address] [place] [address] documented as of this encounter
--- OUTSIDE RECORDS SUMMARY | 2022-05-22 08:14 | XMS_ITS | Encounter Summary ---
:1945 Author Organization [facility] [place] [address] Care Team Providers Name Role Phone Lovely Vicente MD Primary Care Provider Encounter Details Date Type Department Care Team Description 12/24/2021 Telephone Public Health at [facility] [address] Social History Tobacco Use Types Packs/Day [...] Dolan MD [facility] [address] [place], [place] [address] (Wo rk) 05/28/2022 Laboratory Appointment Lab 05/28/2022 Office Visit Cardiology Zulma Dolan MD [facility] [place] [address] Liz Poole PA [facility] [place] [address] 06/10/2022 Office Visit Dermatology Laura Scherer MD [facility] ER [address] [place], [place] [address] (Wo rk) documented as of this encounter Visit Diagnoses Not on filedocumented in this encounter Care Teams Wood Heel Back Liner Relationship Specialty Start Date End Date Lovely Vicente MD PCP - General 04/16/[address] [place] [address] documented as of this encounter
--- OUTSIDE RECORDS SUMMARY | 2022-05-22 08:14 | XMS_ITS | Encounter Summary ---
:1945 [place] [address] Care Team Providers Name Role Phone Lovely Vicente MD Primary Care Provider Encounter Details Date Type Department Care Team Description 12/25/2021 Office Visit Cardiology at [facility] Liz Poole, Chronic systolic heart [facility] [place] [address] Cardiology Dept [phone] [place], [place] [address] Social History Tobacco Use Types [...] [place] 12/08[place], transferred from [facility], respiratory distress with hypoxia 86% on RA. [...] mg PO daily in place of Lasix. [place] is new for him and he will [...] Antiplatelet (DAPT) Recommendations above ? TTE from [facility] 12/08/21 ?? 07/28/2019 Echocardiogram: SUMMARY: 1. The [...] regurgitation present. 07/07/2019 - 07/21/2019 Zio Patch Reed Or Wind Instrument Repairer The patient had a minimum heart [...] hyperkalemia 4.9 today 6. Post-op atrial fibrillation [id number] (CHF, HTN, DM, vascular disease, thromboembolism) [...] MD [facility] [address] [place], [place] [address] (Wo rk) 05/28/2022 Laboratory Appointment Lab 05/28/2022 Office Visit Cardiology Zulma Dolan MD [facility] [place] [address] Liz Poole PA [facility] [place] [address] 06/10/2022 Office Visit Dermatology Laura Scherer MD [facility] ER DR [address] [place], [place] [address] (Mikayla alcaraz) documented as of this encounter Results (ABNORMAL) pro-Brain Natriuretic Peptide (12/25/2021 7:46 AM EDT) athologist Signature ProBNP 1,380 (H) <=[address] [facility] [facility] [address] pg/mL [facility] LABORATORY Specimen Anatomical Collection Method Collection Time Receive d Time (Source) Location / / Volume Laterality Blood 12/25/2021 7:46 AM 8:01 EDT AM EDT Resulting Agency Comment Spec In Lab Zulma Plunkett MD CHEMISTRY ORDERABLES Performing Organization Address City/State/[place] [address] (ABNORMAL) Basic Metabolic Panel (non-fasting) (12/25/2021 7:46 AM EDT) athologist Signature Glucose Lvl 272 (H) 65 - 199 [facility] mg/dL [facility] LABORATORY [...] Chloride 95 (L) 98 - 107 mmol/L [facility] LABORATORY CO2 28 22 - 31 mmol/L [facility] LABORATORY Anion Gap 11 5 - 15 mmol/L [facility] LABORATORY Calcium 9.4 8.5 - 10.5 mg/dL [facility] LABORATORY Estimated GFR 36 (L) >=60 mL/min/1.73 m?? [facility] [...] City/State/[place] [address] documented in this encounter Visit Diagnoses Diagnosis Chronic systolic heart failure documented in this encounter Care Teams Sand Temperer Relationship Specialty Start Date End Date Lovely Vicente MD PCP - General 04/16/[address] [place] [address] documented as of this encounter
--- OUTSIDE RECORDS SUMMARY | 2022-05-22 08:14 | XMS_ITS | Encounter Summary ---
:1945 Author Organization [facility] Address [facility] [place] [address] Care Team Providers Name Role Phone Lovely Vicente MD Primary Care Provider Reason for Visit Auth/Cert Specialty Diagnoses / Procedures Referred By Contact Refer red To Contact Diagnoses ASCVD (arteriosclerotic cardiovascular disease) [I25.10] Vitaliy Nobles MD [facility] Procedures PRO PERC TRLUML CORONARY STENT W/ANGIO ONE ART/BRANCH CARDIAC CATHETERIZATION STENT PLACEMENT-SINGLE MAJOR CORONARY ARTERY OR BRANCH [facility] [place] [address] Referral ID Status Reason Start Date Expiration Date Visits Requ ested Visits Authorized [id number] 1 1 Encounter Details Date Type Department Care Team Description 01/30/2022 Surgery Health Advisor Asa Coulter MD CARDIAC CATHETERIZATION [facility] [place] [address] [place] [address] [phone] (Wo rk) Social History Tobacco Use Types [...] and Clopidogrel. Please follow up with your house moving supervisor in the next 4-6 weeks. We have made a referral to cardiac rehab. Please see the attached instructions regarding care to your right wrist access site. AttachmentsThe following attachments cannot be sent through Care Everywhere. Coronary Angiogram: Post-op (Maltese)documented in this encounter Medications at Time of [...] J, RN - 01/30/2022 4:54 PM EDT [facility] Short Stay Unit Discharge Note All [...] recent PCI presenting for staged PCI to [facility]. The pt states he has been [...] recent PCI presenting for staged PCI to [facility]. The indications, expected benefits, and potential [...] from the original note were not included. [facility] [place] [id number] CORONARY ANGIOGRAM AND PERCUTANEOUS CORONARY INTERVENTION REPORT Patient: Don Fatima : 1945 MR number: [id number] Date of Service: 01/30/2022 Telephone Sales Agent: Vitaliy Nobles MD Fellow: KEYON Elizabeth INDICATION: [...] a long 2.0 x 26 mm HARDEEP [place] TUCKER stent and positioned it at [...] using a 2.0 x 26 mm HARDEEP [place] TUCKER stent. This completes the revascularization [...] [facility] er Dr [place] MD 0375 (Wo rk) 05/28/2022 Laboratory Appointment Lab 05/28/2022 Office Visit Zulma Garrison MD [facility] [place] [address] Liz Poole PA [facility] [place] [address] 06/10/2022 Office Visit Dermatology Laura Scherer MD [facility] ER DR [address]MAT [facility] 0375 (Wo rk) Scheduled Orders Name [...] LABORATORY Neutr Abs (ANC) 3.96 1.70 - [facility] 6.10 [facility] x10(3)/[facility] LABORATORY Lymphocytes % 16.3 % [facility] LABORATORY Lymphocytes Abs 0.9 0.9 - 3.2 [facility] x10(3)/[facility] LABORATORY Monocytes % 10.0 % [facility] LABORATORY Monocyte Abs 0.6 0.3 - 0.9 [facility] x10(3)/[facility] LABORATORY Eosinophils % 0.5 % [facility] LABORATORY Eosinophils Abs 0.0 0.0 - 0.4 [facility] x10(3)/[facility] LABORATORY Basophils % 0.5 % [facility] LABORATORY Basophils Abs 0.0 0.0 - 0.1 [facility] x10(3)/[facility] LABORATORY Immature Gran % 0.90 % NORTH [...] [place] [address] (ABNORMAL) Hemogram (01/30/2022 2:12 PM EDT) Analysis Performed At Patho logist Time Signature WBC 5.5 4.0 - 9.5 [facility] x10(3)/[facility] LABORATORY RBC 4.30 (L) 4.58 - [facility] 5.54 [facility] x10(6)/[facility] LABORATORY Hemoglobin 12.7 (L) 13.7 - [place] 16.5 g/dL [facility] LABORATORY Hematocrit 39.4 (L) 40.5 - [place] 48.5 % [facility] LABORATORY MCV 91.6 82.9 - [place] 93.1 [facility] LABORATORY MCH 29.5 27.5 - [place] 32.1 pg [facility] LABORATORY MCHC 32.2 32.0 - [place] 35.7 g/dL [facility] LABORATORY Platelets 172 145 - 357 [facility] x10(3)/[facility] LABORATORY RDWSD 54.5 (H) 36.0 - [place] 45.0 [facility] LABORATORY RDWCV 16.4 (H) 11.4 - [place] 13.8 % [facility] LABORATORY MPV 9.2 7.6 - 12.9 [place] [facility] LABORATORY nRBC % Auto 0.0 % [facility] LABORATORY nRBC Abs Auto 0.000 0.000 - [place] 0.000 [facility] x10(3)/[facility] LABORATORY Specimen Anatomical Collection Method Collection Time Receive d Time (Source) Location / / Volume Laterality Blood 01/30/2022 2:12 PM 2 2:37 EDT PM EDT Resulting Agency Comment Spec In Lab Eddi Elizabeth Jr., MD HEMATOLOGY ORDERABLES Performing Organization Address City/State/ZIP [place] [address] (ABNORMAL) Basic Metabolic Panel (non-fasting) (01/30/2022 2:12 PM EDT) athologist Signature Glucose Lvl 163 65 - 199 [facility] mg/dL [facility] LABORATORY Comment: Diabetes: >=200 mg/dL plus symp toms BUN 30 (H) 10 - 20 mg/dL [facility] LABORATORY Creatinine 1.47 0.80 - 1.50 mg/dL [facility] [...] [place] [address] POCT Glucose (01/30/2022 1:41 PM EDT) athologist Signature POC Glucose 148 65 - 199 [facility] mg/dL [facility] LABORATORY Comment: Supplemental [...] [facility]/ZIP Code Phon e Number [address] POCT Glucose (01/30/2022 10:48 AM EDT) P athologist Signature POC Glucose 193 65 - 199 [facility] mg/dL [facility] LABORATORY Comment: Supplemental ranges: <140 mg/dL before meals <180 mg/dL all other times of the day Specimen Anatomical Collection Method Collection Time Receive d Time (Source) Location / / Volume Laterality Blood 01/30/2022 10:48 01/30/2022 AM EDT 10:48 AM EDT Vitaliy Nobles MD POINT OF CARE TEST ORDERABLE S Performing Organization Address [facility] [place] [address] EKG 12 Lead (01/30/2022 10:33 AM EDT) Component Value Ref Range Test Analysis Performed Pathologis t Method Time At Signature Ventricular rate 64 BPM MUSE SYSTEM Atrial Rate 64 BPM MUSE SYSTEM P-R Interval 162 ms MUSE SYSTEM QRS Duration 94 ms MUSE SYSTEM Q-T Interval 422 ms MUSE SYSTEM QTC Calculated 435 ms MUSE SYSTEM (Bezet) Calculated P [place] 41 degrees MUSE SYSTEM Calculated R [place] -27 degrees MUSE SYSTEM Calculated T [place] 104 degrees MUSE SYSTEM INTERPRETATION Normal sinus rhythm MUSE SYSTEM Anterolateral infarct (cited on or before 09-DEC-2021) Abnormal ECG When compared with ECG of 10-DEC-2021 11:17, No significant change was found Confirmed by Gary Perez ([id number]) on 01/30/2022 5:57:5 2 PM Specimen Anatomical Collection Method Collection Time Receive d Time (Source) Location / / Volume Laterality 01/30/2022 10:33 01/30/2022 5:57 AM EDT PM EDT Vitaliy Nobles MD ECG ORDERABLES Performing Organization Address City/[facility]/ZIP Code Phon e Number MUSE SYSTEM CARDIAC CATHETERIZATION (01/30/2022 10:16 AM EDT) Anatomical Region Laterality Modality Other Specimen (Source) Anatomical Location Collection Method / Collectio n Time Received Time / Laterality Volume Narrative 01/30/2022 2:09 PM EDT ?[facility] ? Cardiac Cathete rization/Intervention Report ? Patient Name: Don Fatima. ? Procedure Date: 01/30/2022 ? A #: [id number] ? Primary Physician: Nobles, Vitaliy P ? Case #: [id number] ? File Name: [id number] ? Catheterization Order Number: [id number] ? [facility] ? Final Report [place], [place] ? Patient Name: ? Don E. Stewa rt ? ID#: ?[id number] ? : ?1945 ? Procedure Date: ? [...] was Urgent. The indication for ?the laborer prestressed concrete visit is stable kn own CAD. Chest [...] guiding catheter an d a 3.[address] ??20 Mhz ?using Manual pullback. ??Imagin [...] A premounted 2.00 x 26 mm Hardeep [place] (TUCKER) ? was deployed wi a maximum [...] Wedelivered along 2.0 x 26 mm HARDEEP [place] ? TUCKER stent and p ositioned [...] administered prior to arrival in the laborer prestressed concrete. ?Recommended anti-platelet/anti- thrombotic regimen: ?Continue aspirin 81 [...] may require ?modification of this regimen. [facility] ?questions. ?The [...] using a 2.0 x 26 mm HARDEEP [place] TUCKER stent. ?This completes the revasculariz [...] Vitaliy Nobles MD - 03/06/2022 [facility] Cardiac Catheterization/Intervention Re port Patient Name: Don Fatima Procedure Date: 01/30/2022 A #: [id number] Primary Physician: Vitaliy Nobles Case #: [id number] File Name: [id number] Catheterization Order Number: [id number] [facility] Final Report [place], [place] Patient Name: Don Fatima ID#: [...] was Urgent. The indication for the laborer prestressed concrete visit is stable known CAD. Chest pain [...] 1.5 guiding catheter and a 3.[address] 20 Mhz using Manual pullback. Imaging [...] A premounted 2.00 x 26 mm Hardeep [place] (TUCKER) was deployed with a maximum inflation [...] along 2. 0 x 26 mm HARDEEP [place] TUCKER stent and positioned it at [...] prior t o arrival in the laborer prestressed concrete. Recommended anti-platelet/anti-thrombot ic regimen: Continue aspirin 81 [...] modification of this regimen. Consult D [facility] [...] using a 2.0 x 26 mm HARDEEP [place] TUCKER stent. This completes the revascularization of [...] POC Glucose 212 (H) 65 - 199 [facility] mg/dL [facility] LABORATORY Comment: Supplemental ranges: <140 mg/dL before meals <180 mg/dL all other times of the day Specimen Anatomical Collection Method Collection Time Receive d Time (Source) Location / / Volume Laterality Blood 01/30/2022 9:04 AM 2 9:04 EDT AM EDT Vitaliy Nobles MD POINT OF CARE TEST ORDERABLE S Performing Organization Address City/State/[place]IP [place] [address] (ABNORMAL) POCT Glucose (01/30/2022 8:10 AM EDT) athologist Signature POC Glucose 224 (H) 65 - 199 [facility] mg/dL [facility] LABORATORY Comment: Supplemental ranges: <140 mg/dL before meals <180 mg/dL all other times of the day Specimen Anatomical Collection Method Collection Time Receive d Time (Source) Location / / Volume Laterality Blood 01/30/2022 8:10 AM 2 8:10 EDT AM EDT Vitaliy Nobles MD POINT OF CARE TEST ORDERABLE S Performing Organization Address City/State/ZIP [place] [address] documented in this encounter Visit Diagnoses Diagnosis ASCVD (arteriosclerotic cardiovascular d isease) Unspecified cardiovascular disease 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 ASHD (arteriosclerotic heart disease) Coronary atherosclerosis of unspecified type of vessel, eagle or graft ASCVD (arteriosclerotic cardiovascular d isease) Unspecified cardiovascular disease documented in this encounter Admitting Diagnoses Diagnosis CAD (coronary artery disease) Coronary atherosclerosis of unspecified type of vessel, eagle or graft documented in this encounter Administered [...] Given 02/2022 10:11 AM EDT 100 mcg (CLAIMS ANALYST) ONCE PRN, Starting on Wed01/30/22 at 0927, [...] Procedure), Routine niCARdipine (Cardene) (100 mcg/mL) dilution (CLAIMS ANALYST) (CANCELED ) 0927 (Given - Provider: [...] (Intra-Procedure) documented in this encounter Care Teams Golf Cart Maker Relationship Specialty Start Date End Date Lovely Vicente MD PCP - General 04/16/[address] [place] [address] documented as of this encounter
--- OUTSIDE RECORDS SUMMARY | 2022-05-22 08:14 | XMS_ITS | Encounter Summary ---
:1945 Author Organization [facility] [place] [address] Care Team Providers Name Role Phone Lovely Vicente MD Primary Care Provider Reason for Visit Reason Comments Medication Refill Encounter Details Date Type Department Care Team Description 04/07/2022 Refill Cardiology at [facility] Janneth Padilla PA Medication Refill [facility] [place] [address] CARDIOLOGY DEPT. [phone] [place], [place] 0375 (Wo rk) Social History Tobacco [...] MD [facility] er [place], [place] 0375 (Wo rk) 05/28/2022 Laboratory Appointment Lab 05/28/2022 Office Visit Cardiology Zulma Dolan MD [facility] [address] Liz Poole PA [facility] [place] [address] 06/10/2022 Office Visit Dermatology Laura Scherer MD [facility] DR [address] [place], [place] 0375 (Wo rk) documented as of this encounter Visit Diagnoses Not on filedocumented in this encounter Care Teams Radiotelegraph Operator Servicer Relationship Specialty Start Date End Date Lovely Vicente MD PCP - General 04/16/[address] [place] [address] [address] [place] [address] documented as of this encounter
--- OUTSIDE RECORDS SUMMARY | 2022-05-22 08:14 | XMS_ITS | Encounter Summary ---
:1945 Author Organization [facility] [place] [address] Care Team Providers Name Role Phone Lovely Vicente MD Primary Care Provider Encounter Details Date Type Department Care Team Description 03/26/2022 Office Visit Cardiology at [facility] Vitaliy Nobles MD Chronic systolic heart failure; [facility] ONE MEDICAL ASCVD (ar teriosclerotic cardiovascular disease); [facility] Cardiomyopathy, ischemic [place], [place] CARDIOLOGY [address] [place] [address] [phone] Social History Tobacco Use Types Packs/Day Years [...] [facility] [place] [address] CARDIOLOGY OUTPATIENT CLINIC VISIT [facility] Don Mccollum Kushal 03/26/2022 Referring Providers: MD Jules Cr Joyce, MD [address] [place] [id number] CHIEF COMPLAINT: I am doing well CARDIAC-RELEVANT [...] using a 2.0 x 26 mm [place] TUCKER stent. This completes therevascularization of all [...] in [address] Lovely Vicente MD [address] [place] [phone] HISTORY OF PRESENT ILLNESS: Don Fatima is [...] using a 2.0 x 26 mm ORION [place] TUCKER stent. This completes the revascularization of [...] [facility] MAIN OR ??? PRO AMPUTATION FOOT, [...] [facility] ENDOSCOPY ??? PRO DRESSING CHANGE UNDER ANESTHESIA Right 08/11/2017 (MSURG) DRESSING CHANGE (FOR OTHER THAN IVAN) UNDER ANES. (WRVU 0.86) performed by Lamar Smith MD at [facility] OR ??? PRO ENDOSCOPY W/VIDEO-ASST VEIN HARVEST, CABG Right 07/07/2017 ENDOSCOPIC HARVEST VEIN(S) FOR CABG (WRVU 0.31) performed by Yuna Retana MD at [facility] MAIN OR ??? PRO PERC TRLUML CORONARY STENT W/ANGIO ONE ART/BRANCH N/A 01/30/2022 STENT PLACEMENT-SINGLE MAJOR CORONARY ARTERY OR BRANCH performed by Vitaliy Nobles MD at [facility] CATH LABS ??? PRO THYROIDECTOMY 03/28/2013 THYROIDECTOMY, TOTAL OR COMPLETE performed by Manny Mcknight MD at [facility] MAIN OR SOCIAL HISTORY: reports that [...] using a 2.0 x 26 mm ORION [place] TUCKER stent. This completes the revascularization of [...] Sincerely, Dr. Vitaliy Nobles MD [place] CORBIN Assembler Equipment Interventional Cardiology 03/26/2022 CC: Lovely Vicente MD [...] [facility], transferred from [facility], respiratory distress with hypoxia 86% [...] Antiplatelet (DAPT) Recommendations above ? TTE from [facility] 12/08/21 ?? 07/28/2019 Echocardiogram: SUMMARY: [...] regurgitation present. 07/07/2019 - 07/21/2019 Zio Patch Software Test Analyst The patient had a minimum heart [...] 12.5 mg daily 6. Post-op atrial fibrillation [id number] (CHF, HTN, DM, vascular disease, thromboembolism) Eliquis 7. PAD 08/06/2017: Right 1st, 2nd, 3rd toe amputation 08/11/2017: Left??femoral arterial access, RLE??angiogram, Balloon angioplasty of R PT 10/25/2017: right popliteal-pedal bypass at [facility] 8. Hypothyrodism S/p thyroidectomy [...] [facility] [place] [address] Liz Poole PA [facility] [place] [address] 06/10/2022 Office Visit Dermatology Laura Scherer MD [facility] [address] [place], [place] 0375 (Wo rk) documented as of this encounter Visit Diagnoses Diagnosis Chronic systolic heart failure ASCVD (arteriosclerotic cardiovascular d isease) Unspecified cardiovascular disease Cardiomyopathy, ischemic Other specified forms of chronic ischemi c heart disease documented in this encounter Care Teams Title 1 Tutor Relationship Specialty Start Date End Date Lovely Vicente MD PCP - General 04/16/[address] [place] [address] documented as of this encounter
--- OUTSIDE RECORDS SUMMARY | 2022-05-22 08:14 | XMS_ITS | Encounter Summary ---
:1945 Author Organization [facility] Address [facility] [place] [address] Care Team Providers Name Role Phone Lovely Vicente MD Primary Care Provider Reason for Visit Auth/Cert Specialty Diagnoses / Procedures Referred By Contact Refer red To Contact Diagnoses ASCVD (arteriosclerotic cardiovascular disease) [I25.10] Vitaliy Nobles MD [facility] Procedures PRO PERC TRLUML CORONARY STENT W/ANGIO ONE ART/BRANCH CARDIAC CATHETERIZATION STENT PLACEMENT-SINGLE MAJOR CORONARY ARTERY OR BRANCH [facility] [place] [address] Referral ID Status Reason Start Date Expiration Date Visits Requ ested Visits Authorized [id number] 1 1 Encounter Details Date Type Department Care Team Description 01/30/2022 Hospital Encounter Short Stay Unit at Vitaliy Nobles, CVD (arteriosclerotic cardiovascular disease); Barbara lBue MD 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 Please follow up with your circulation librarian in the next 4-6 weeks. We have made a referral to cardiac rehab. Please see the attached instructions regarding care to your right wrist access site. AttachmentsThe following attachments cannot be sent through Care Everywhere. Coronary Angiogram: Post-op (Khmer)documented in this encounter Medications at Time of [...] Murray RN - 01/30/2022 4:54 PM EDT [facility] Short Stay Unit Discharge Note [...] [facility] [place] [address] CORONARY ANGIOGRAM AND PERCUTANEOUS CORONARY INTERVENTION REPORT Patient: Don Fatima : 1945 MR number: [id number] Date of Service: 01/30/2022 Print Inspector: Vitaliy Nobles MD Fellow: KEYON Elizabeth [...] a long 2.0 x 26 mm [place] TUCKER stent and positioned it at the [...] using a 2.0 x 26 mm [place] TUCKER stent. This completes the revascularization ofall [...] Zulma Dolan MD [facility] er [place] [address] (Wo rk) 05/28/2022 Laboratory Appointment Lab 05/28/2022 Office Visit Cardiology Zulma Dolan MD [facility] [place] [address] Liz Poole PA [facility] [place] [address] 06/10/2022 Office Visit Dermatology Laura Scherer MD [facility] ER DR [address] [place], [place] [address] (Wo rk) Scheduled Orders Name [...] LABORATORY Neutr Abs (ANC) 3.96 1.70 - [facility] 6.10 [facility] x10(3)/[facility] LABORATORY Lymphocytes % 16.3 % [facility] LABORATORY Lymphocytes Abs 0.9 0.9 - 3.2 [facility] x10(3)/[facility] LABORATORY Monocytes % 10.0 % [facility] LABORATORY Monocyte Abs 0.6 0.3 - 0.9 [facility] x10(3)/[facility] LABORATORY Eosinophils % 0.5 % [facility] LABORATORY Eosinophils Abs 0.0 0.0 - 0.4 [facility] x10(3)/[facility] LABORATORY Basophils % 0.5 % [facility] LABORATORY Basophils Abs 0.0 0.0 - 0.1 [facility] x10(3)/[facility] LABORATORY Immature [...] City/State/[place] [address] (ABNORMAL) Hemogram (01/30/2022 2:12 PM EDT) Analysis Performed At Patho logist Time Signature WBC 5.5 4.0 - 9.5 [facility] x10(3)/[facility] LABORATORY RBC 4.30 (L) 4.58 - [place] [facility] 5.54 [facility] x10(6)/[facility] LABORATORY Hemoglobin 12.7 (L) 13.7 - [place] 16.5 g/dL [facility] LABORATORY Hematocrit 39.4 (L) 40.5 - [place] [facility] 48.5 % [facility] LAB[facility]ATORY MCV 91.6 82.9 - [facility] 93.1 [facility] LABORATORY MCH 29.5 27.5 - [place] [facility] 32.1 pg [facility] MCHC 32.2 32.0 - [place] [facility] 35.7 g/dL [facility] Platelets 172 145 - 357 [facility] x10(3)/[facility] LABORATORY RDWSD 54.5 (H) 36.0 - [facility] 45.0 [facility] LABORATORY RDWCV 16.4 (H) 11.4 - [facility] 13.8 % [facility] LAB[facility] MPV 9.2 7.6 - 12.9 [facility] LABORATORY nRBC % Auto 0.0 % [facility] LABORATORY nRBC Abs Auto 0.000 0.000 - [facility] 0.000 [facility] x10(3)/[facility] LABORATORY Specimen Anatomical Collection Method Collection Time Receive d Time (Source) Location / / Volume Laterality Blood 01/30/2022 2:12 PM 2 2:37 EDT PM EDT Resulting Agency Comment Spec In Lab Eddi Elizabeth Jr., MD HEMATOLOGY ORDERABLES Performing Organization Address City/State/[place] [address] (ABNORMAL) Basic Metabolic Panel (non-fasting) (01/30/2022 2:12 PM EDT) P athologist Signature Glucose Lvl 163 65 - 199 [facility] mg/dL [facility] LAB[facility] Comment: Diabetes: >=200 mg/dL plus symp toms BUN 30 (H) 10 - 20 mg/dL [facility] LABORATORY Creatinine 1.47 0.80 - 1.50 mg/dL [facility] LABOR[facility]ORY Sodium 140 135 - 145 [...] City/State/[place] [address] POCT Glucose (01/30/2022 1:41 PM EDT) athologist Signature POC Glucose 148 65 - 199 [facility] mg/dL [facility] Comment: Supplemental ranges: <140 mg/dL before meals <180 mg/dL all other times of the day Specimen Anatomical Collection Method Collection Time Receive d Time (Source) Location / / Volume Laterality Blood 01/30/2022 1:41 PM 1:41 EDT PM EDT Vitaliy Sandra Nobles MD POINT OF CARE TEST ORDERABLE S Performing Organization Address City/[facility]/ZIP Code Phon e Number [address] POCT Glucose (01/30/2022 10:48 AM EDT) P athologist Signature POC Glucose 193 65 - 199 [facility] mg/dL [facility] LAB[facility] Comment: Supplemental ranges: <140 mg/dL before meals <180 mg/dL all other times of the day Specimen Anatomical Collection Method Collection Time Receive d Time (Source) Location / / Volume Laterality Blood 01/30/2022 10:48 01/30/2022 AM EDT 10:48 AM EDT Vitaliy Sandra Nobles MD POINT OF CARE TEST ORDERABLE S Performing Organization Address [facility] [place] [address] EKG 12 Lead (01/30/2022 10:33 AM EDT) Component Value Ref Range Test Analysis Performed Pathologis t Method Time At Signature Ventricular rate 64 BPM MUSE SYSTEM Atrial Rate 64 BPM MUSE SYSTEM P-R Interval 162 ms MUSE SYSTEM QRS Duration 94 ms MUSE SYSTEM Q-T Interval 422 ms MUSE SYSTEM QTC Calculated 435 ms MUSE SYSTEM (Bezet) Calculated P Ralph 41 degrees MUSE SYSTEM Calculated R Ralph -27 degrees MUSE SYSTEM Calculated T Ralph 104 degrees MUSE SYSTEM INTERPRETATION Normal sinus rhythm MUSE SYSTEM Anterolateral infarct (cited on or before 09-DEC-2021) Abnormal ECG When compared with ECG of 10-DEC-2021 11:17, No significant change was found Confirmed by Gary Perez ([id number]) on 01/30/2022 5:57:5 2 PM Specimen Anatomical Collection Method Collection Time Receive d Time (Source) Location / / Volume Laterality 01/30/2022 10:33 01/30/2022 5:57 AM EDT PM EDT Vitaliy Sandra Nobles MD ECG ORDERABLES Performing Organization Address City/[facility]/ZIP Code Phon e Number MUSE SYSTEM CARDIAC CATHETERIZATION (01/30/2022 10:16 AM EDT) Anatomical Region Laterality Modality Other Specimen (Source) Anatomical Location Collection Method / Collectio n Time Received Time / Laterality Volume Narrative 01/30/2022 2:09 PM EDT ?[facility] ? Cardiac Cathete rization/Intervention Report ? Patient Name: Don Fatima. ? Procedure Date: 01/30/2022 ? A #: [id number] ? Primary Physician: Nobles, Vitaliy P ? Case #: [id number] ? File Name: [id number] ? Catheterization Order Number: [id number] ? [facility] ? Final Report [place], [place] ? Patient Name: ? Don Mccollum. Stewa rt ? ID#: ?[id number] ? : ?1945 ? Procedure Date: ? [...] as ASA Class III. Th e [facility] clinical frailty scale is 5: Mildly ?Frail. [...] the equipment ?utilized will be described in [facility] intervention summary section. 9,000 ?units of [...] guiding catheter an d a 3.5 Fr [place] [facility] [address] ??20 Mhz ?using Manual pullback. ??Imagin [...] A premounted 2.00 x 26 mm [place] (TUCKER) ? was deployed wi a maximum [...] Wedelivered along 2.0 x 26 mm [place] ? TUCKER stent and p ositioned it [...] using a 2.0 x 26 mm [place] TUCKER stent. ?This completes the revasculariz ation [...] Procedure Note Vitaliy Nobles MD - 03/06/2022 [facility] Cardiac Catheterization/Intervention Re port Patient Name: Don Fatima Procedure Date: 01/30/2022 A #: [id number] Primary Physician: Vitaliy Nobles Case #: [id number] File Name: [id number] Catheterization Order Number: [id number] [facility] Final Report [place], [place] Patient Name: Don Fatima ID#: [...] was Urgent. The indication for the director geophysical laboratory visit is stable known CAD. Chest pain [...] 1.5 guiding catheter and a 3.5 Fr [place] [facility] [address] 20 Mhz using Manual pullback. Imaging [...] atmospheres. A premounted 2.00 x 26 mm [place] (TUCKER) was deployed with a maximum inflation [...] along 2. 0 x 26 mm HARDEEP [place] TUCKER stent and positioned it at the [...] prior t o arrival in the director geophysical laboratory. Recommended anti-platelet/anti-thrombot ic regimen: Continue aspirin 81 [...] require modification of this regimen. Consult [facility] Interventional Cardiology for questions. The 1 year [...] using a 2.0 x 26 mm [place] TUCKER stent. This completes the revascularization of [...] Glucose 212 (H) 65 - 199 [facility] mg/dL [facility] Comment: Supplemental ranges: <140 mg/dL before meals <180 mg/dL all other times of the day Specimen Anatomical Collection Method Collection Time Receive d Time (Source) Location / / Volume Laterality Blood 01/30/2022 9:04 AM 2 9:04 EDT AM EDT Vitaliy Nobles MD POINT OF CARE TEST ORDERABLE S Performing Organization Address City/State/[place] [address] (ABNORMAL) POCT Glucose (01/30/2022 8:10 AM EDT) athologist Signature POC Glucose 224 (H) 65 - 199 [facility] mg/dL [facility] Comment: Supplemental ranges: <140 mg/dL before meals <180 mg/dL all other times of the day Specimen Anatomical Collection Method Collection Time Receive d Time (Source) Location / / Volume Laterality Blood 01/30/2022 8:10 AM 2 8:10 EDT AM EDT Vitaliy Nobles MD POINT OF CARE TEST ORDERABLE S Performing Organization Address City/State/[place] [address] documented in this encounter Visit Diagnoses Diagnosis ASCVD (arteriosclerotic cardiovascular d isease) Unspecified cardiovascular disease 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 ASHD (arteriosclerotic heart disease) Coronary atherosclerosis of unspecified type of vessel, alturas or graft ASCVD (arteriosclerotic cardiovascular d isease) Unspecified cardiovascular disease documented in this encounter Admitting Diagnoses Diagnosis CAD (coronary artery disease) Coronary atherosclerosis of unspecified type of vessel, alturas or graft documented in this encounter Administered [...] Procedure), Routine niCARdipine (Cardene) (100 mcg/mL) dilution (DOOR TO DOOR LEAD GENERATION) (CANCELED ) 0927 (Given - Provider: Vitaliy [...] (Intra-Procedure) documented in this encounter Care Teams It Desktop Support Technician Relationship Specialty Start Date End Date Lovely Vicente MD PCP - General 04/16/[address] [place] [address] documented as of this encounter
--- OUTSIDE RECORDS SUMMARY | 2022-05-22 08:14 | XMS_ITS | Encounter Summary ---
:1945 Author Organization [facility] [place] [address] Care Team Providers Name Role Phone Lovely Vicente MD Primary Care Provider Encounter Details Date Type Department Care Team Description 12/25/2021 Laboratory Appointment Lab 3L [facility] heart [place] [id number] Social History Tobacco Use Types Packs/Day Years [...] Dolan MD [facility] [place], [place] [address] (Wo rk) 05/28/2022 Laboratory Appointment Lab 05/28/2022 Office Visit Cardiology Zulma Dolan MD [place] [address] Liz Poole PA [facility] [place] [address] 06/10/2022 Office Visit Dermatology Laura Scherer MD [facility] [address] [place] [address] (Wo rk) documented as of this encounter [...] Automated (12/25/2021 7:46 AM EDT) [facility] gist Method Time Signature Neutrophils % 82.6 % [facility] LABORATORY Neutr Abs (ANC) 9.37 (H) 1.70 - [facility] 6.10 [facility] x10(3)/[facility] LABORATORY Lymphocytes % 7.1 % [facility] LABORATORY Lymphocytes Abs 0.8 (L) 0.9 - 3.2 [facility] x10(3)/[facility] LABORATORY Monocytes % 8.8 % [facility] LABORATORY Monocyte Abs 1.0 (H) 0.3 - 0.9 [facility] x10(3)/[facility] LABORATORY Eosinophils % 0.4 % [facility] LABORATORY Eosinophils Abs 0.0 0.0 - 0.4 [facility] x10(3)/[facility] LABORATORY Basophils % 0.4 % [facility] LABORATORY Basophils Abs 0.0 0.0 - 0.1 [facility] x10(3)/[facility] LABORATORY Immature Gran [...] City/State/ZIP Code Phon e Number [place] [phone] HOSP[address] LAB[address]ORY Drive (ABNORMAL) Hemogram (12/25/2021 7:46 AM EDT) Analysis Performed At Patho logist Time Signature WBC 11.4 (H) 4.0 - 9.5 [facility] x10(3)/[facility] LABORATORY RBC 4.23 (L) 4.58 - [facility] 5.54 [facility] x10(6)/[facility] LABORATORY Hemoglobin 12.3 (L) 13.7 - [facility] 16.5 g/dL [facility] Hematocrit 37.7 (L) 40.5 - [facility] RYAN 48.5 % [facility] LABORATORY MCV 89.1 82.9 - [facility] RYAN 93.1 [facility] LABORATORY MCH 29.1 27.5 - [place] RYAN 32.1 pg [facility] LABORATORY MCHC 32.6 32.0 - [facility] 35.7 g/dL [facility] LABORATORY Platelets 215 145 - 357 [facility] x10(3)/[facility] LABORATORY RDWSD 49.8 (H) 36.0 - [place] [facility] 45.[address] [facility] RDWCV 15.2 (H) 11.4 - [facility] RYAN 13.8 % [facility] LABORATORY MPV 9.2 7.6 - 12.9 [facility] LABORATORY nRBC % Auto 0.0 % [facility] LABORATORY nRBC Abs Auto 0.000 0.000 - [facility] 0.000 [facility] x10(3)/[facility] LABORATORY Specimen Anatomical Collection Method Collection Time Receive d Time (Source) Location / / Volume Laterality Blood 12/25/2021 7:46 AM 8:01 EDT AM EDT Resulting Agency Comment Spec In Lab Liz BROWN HEMATOLOGY ORDERABLES Performing Organization Address City/State/ZIP [place] [address] (ABNORMAL) Basic Metabolic Panel (non-fasting) (12/25/2021 7:46 AM EDT) P athologist Signature Glucose Lvl 272 (H) 65 - 199 [facility] mg/dL [facility] LABORATORY Comment: Diabetes: [...] Plunkett MD CHEMISTRY ORDERABLES Performing Organization Address City/[facility]/[place] [address] (ABNORMAL) pro-Brain Natriuretic Peptide (12/25/2021 7:46 AM EDT) P athologist Signature ProBNP 1,380 (H) <=124 [facility] pg/mL [facility] LABORATORY Specimen Anatomical Collection Method Collection Time Receive d Time (Source) Location / / Volume Laterality Blood 12/25/2021 7:46 AM 2 8:01 EDT AM EDT Resulting Agency Comment Spec In Lab Zulma Plunkett MD CHEMISTRY ORDERABLES Performing Organization Address City/[facility]/ZIP [facility] [place] [address] documented in this encounter Visit Diagnoses Diagnosis Chronic systolic heart failure documented in this encounter Care Teams Supervisor Soakers Relationship Specialty Start Date End Date Lovely Vicente MD PCP - General 04/16/[address] [place] [address] documented as of this encounter
--- OUTSIDE RECORDS SUMMARY | 2022-05-22 08:14 | XMS_ITS | Encounter Summary ---
:1945 Author Organization [facility] [place] [address] Care Team Providers Name Role Phone Lovely Vicente MD Primary Care Provider Encounter Details Date Type Department Care Team Description 02/23/2022 Refill Cardiology at [facility] Liz Poole PA [facility] [place] [address] Cardiology Dept [phone] [place], [place] 0[address] (Wo rk) Social History Tobacco [...] Oneill RPH Transfer of Services Don Fatima [address] [place] [address] [place] [address] Telephone Information: Work Phone Not on file. The [facility] has received a prescription for Entresto for patient Mr. Don Fatima 76 y.o. (1945). The patient requests the prescription to be filled with [facility]. We spoke to patient to notify of this change and to provide number to reach the new filling pharmacy. A copyof patient's medication profile was offered to the accepting pharmacy. Additional instructions provided to patient about transfer: no The patient has been advised to call the [facility] at [phone] with any questionsor concerns on this referral. Thank you, Oxana Oneill RPH 02/23/22 4:26 PM Patient understands no changes to current drug regimen were made at this time. documented in this encounter Plan of Treatment Upcoming Encounters Date Type Specialty Care Team Description 05/28/2022 Appointment Cardiology Zulma Dolan MD [facility] [place], [place] [address] (Wo rk) 05/28/2022 Laboratory Appointment Lab 05/28/2022 Office Visit Cardiology Zulma Dolan MD [facility] [address] Liz Poole PA [facility] [place] [address] 06/10/2022 Office Visit Dermatology Laura Scherer MD [facility] DR TE[address] GR[address]MAT [place], [place] [address] (Wo rk) documented as of this encounter Visit Diagnoses Not on filedocumented in this encounter Care Teams Consumer Credit Counselor Relationship Specialty Start Date End Date Lovely Vicente MD PCP - General 04/16/[address] [place] [address] documented as of this encounter
--- OUTSIDE RECORDS SUMMARY | 2022-05-22 08:14 | XMS_ITS | Encounter Summary ---
:1945 Author Organization [facility] [place] [address] Care Team Providers Name Role Phone Lovely Vicente MD Primary Care Provider Encounter Details Date Type Department Care Team Description 02/24/2022 Notes Only Care [place] [phone] Social History Tobacco Use Types Packs/Day [...] return to the Medication Assistance Program. The [facility] office will follow up with the patient in 5 business days to see if the patient has received the application and if they have any questions. documented in this encounter Plan of Treatment Upcoming Encounters Date Type Specialty Care Team Description 05/28/2022 Appointment Cardiology Zulma Dolan MD [facility] Dr [place], [place] [address] (Wo rk) 05/28/2022 Laboratory Appointment Lab 05/28/2022 Office Visit Cardiology Zulma Dolan MD [facility] [place] [address] Liz Poole PA [facility] [place] [address] 06/10/2022 Office Visit Dermatology Laura Scherer MD [facility] ER DR TEJA RG[address]DERMAT [place], [place] [address] (Wo rk) documented as of this encounter Visit Diagnoses Not on filedocumented in this encounter Care Teams Account Development Representative Relationship Specialty Start Date End Date Lovely Vicente MD PCP - General 04/16/[address] [place] [address] documented as of this encounter
--- OUTSIDE RECORDS SUMMARY | 2022-05-22 08:14 | XMS_ITS | Encounter Summary ---
:1945 [place] [address] Care Team Providers Name Role Phone Lovely Vicente MD Primary Care Provider Reason for Visit Reason Onset Date Comments Follow-up 02/26/2022 Entresto start Encounter Details Date Type Department Care Team Description 02/26/2022 Telephone Cardiology at [facility] Martha Comer, Follow-up ([facility] RN start) [place] [address] Social History Tobacco Use Types Packs/Day [...] on 03/05/22 Getting labs done at : [facility] Order e-faxed by STEPHANIE Poole on 02/24/22. /pt to call on 03/05/22 letting us know to get the BMP results from [facility]. Nursing to get results and contact pt to see how he is tolerating the Entresto. They are to call sooner with any questions/concerns. documented in this encounter Plan of Treatment Upcoming Encounters Date Type Specialty Care Team Description 05/28/2022 Appointment Cardiology Zulma Dolan MD [facility] [place], [place] [address] (Wo rk) 05/28/2022 Laboratory Appointment Lab 05/28/2022 Office Visit Cardiology Zulma Dolan MD [facility] [place] [address] Liz Poole PA [facility] [place] [address] 06/10/2022 Office Visit Dermatology Laura Scherer MD [facility] DR TEJA GR[address] [place], [place] [address] (Wo rk) documented as of this encounter Visit Diagnoses Not on filedocumented in this encounter Care Teams Regional Project Manager Relationship Specialty Start Date End Date Lovely Vicente MD PCP - General 04/16/[address] [place] [address] documented as of this encounter
--- OUTSIDE RECORDS SUMMARY | 2022-05-22 08:14 | XMS_ITS | Encounter Summary ---
:1945 Author Organization [facility] [place] [address] Care Team Providers Name Role Phone Lovely Vicente MD Primary Care Provider Reason for Referral Diagnostic Test (Routine) - Authorized Specialty Diagnoses / Procedures Referred By Contact Refer red To Contact Cardiology Diagnoses Chronic systolic heart failure Liz Carrera PA [facility] Non-Inv Card Lab Procedures Echocardiogram Transthoracic [facility] [place] [address] [place] [address] Fax: Referral ID Status Reason Start Expiration Visits Visits Date Date Requested Authorized [id number] Authorized Specialty 02/19/2022 02/19/2023 1 1 Service Requested Encounter Details Date Type Department Care Team Description 02/19/2022 Office Visit Cardiology [place] [facility] [place] Carrera, Chronic systolic heart [facility] [place] [address] Cardiology Dept [phone] [place], [place] [address] Social History Tobacco Use Types [...] DC Summary - Admitted to [facility] [place] 12/08/21, [facility] from [facility] [...] mg PO daily in place of Lasix. Byers is new for him and he will [...] regurgitation present. 07/07/2019 - 07/21/2019 Zio Patch Electrician Station Assistant The patient had a minimum heart [...] 12.5 mg daily 6. Post-op atrial fibrillation [id number] (CHF, HTN, DM, vascular disease, thromboembolism) Eliquis 7. PAD 08/06/2017: Right 1st, 2nd, 3rd toe amputation 08/11/2017: Left??femoral arterial access, RLE??angiogram, Balloon angioplasty of R PT 10/25/2017: right popliteal-pedal bypass at [facility] 8. Hypothyrodism S/p thyroidectomy for goiter [...] Dolan MD [facility] [place], [place] 0[address] (Wo rk) 05/28/2022 Laboratory Appointment Lab 05/28/2022 Office Visit Cardiology Zulma Dolan MD [facility] [place] [address] Liz Carrera PA [facility] [place] [address] 06/10/2022 Office Visit Dermatology Laura Scherer MD [facility] DR [address]DERMAT [place], [...] [facility] mg/dL [facility] [...] 107 mmol/L [facility] CO2 31 22 - 31 mmol/L [facility] [...] City/State/ZIP Code Phon e Number [place] [phone] HOSPITAL LAB[address]ATORY [address] (ABNORMAL) pro-Brain Natriuretic Peptide [...] Organization Address City/State/ZIP [place] [address] documented in this encounter Visit Diagnoses Diagnosis Chronic systolic heart failure documented in this encounter Care Teams Integrity Assessor Relationship Specialty Start Date End Date Lovely Vicente MD PCP - General 04/16/[address] [place] [address] documented as of this encounter
--- OUTSIDE RECORDS SUMMARY | 2022-05-22 08:14 | XMS_ITS | Encounter Summary ---
:1945 Author Organization [facility] Address [facility] [place] [address] Care Team Providers Name Role Phone Lovely Vicente MD Primary Care Provider Reason for Visit Reason Comments Prior Authorization Entresto 24-26mg tablets Encounter Details Date Type Department Care Team Description 02/20/2022 Specialty Pharmacy Pharmacy at [facility] Lamberto Smith Prior Authorization [facility] J (Entresto 24-26mg Drive tablets) [place] [id number] Social History Tobacco Use Types Packs/Day Years [...] Fatima Patient : 1945 Patient Address: [address] [place] [address] [place] [address] (home) Medication Name: ENTRESTO 24 MG-26 MG TABLET Medication ID: [id number] Patient Location: [facility] CARDIOLOGY 4A Patient Location Comment: Medication Strength Frequency Requested: Entresto 24-26mg tablets / One tablet twice daily Qty/Day Supply: New Start: New to Therapy Diagnosis & ICD-10 Code: Chronic systolic heart failure, I50.22 Subscriber Insurance: [employer] [facility] Subscriber Insurance Comment: Fax: Physician: LIZ CARRERA Physician Comment : PA Status: NO PA REQUIRED Insurance mandated Pharmacy: Unknown Fillable at [facility]: Yes Insurance requirements/notes: None Copay: $119.01 (goes to coverage gap/odalys monteiro) Copay assistance: [employer] Copay assistance comment: If cost isn't affordable, then we'll suggest enrollment in the currently open [facility] Heart Failure zoila, which provides up to $1000 in copay assistance. If zoila closes, or doesn't work out, then the patient can attempt enrollment in the digester capper assistance program, the [employer] Patient Assistance Foundation [...] Dolan MD [facility] [place] [address] (Wo rk) 05/28/2022 Laboratory Appointment Lab 05/28/2022 Office Visit Cardiology Zulma Dolan MD [facility] [place] [address] Liz Carrera PA [facility] [place] [address] 06/10/2022 Office Visit Dermatology Laura Scherer MD [facility] ER DR [address] [place], [place] 0[address] (Wo rk) documented as of this encounter Visit Diagnoses Not on filedocumented in this encounter Care Teams Cylinder Grinder Relationship Specialty Start Date End Date Lovely Vicente MD PCP - General 04/16/[address] [place] [address] documented as of this encounter
--- OUTSIDE RECORDS SUMMARY | 2022-05-22 08:14 | XMS_ITS | Encounter Summary ---
:1945 Author Organization [facility] Address [facility] [place] [address] Care Team Providers Name Role Phone Lovely Vicente MD Primary Care Provider Reason for Visit Reason Onset Date Comments Medication Refill 04/09/2022 Jardiance Encounter Details Date Type Department Care Team Description 04/09/2022 Refill [address]iology [address] [facility] Liz Poole PA Medication Refill [facility] (Ja rdiance) [place] [address] Cardiology Dept [phone] [place], [place] [address] (Wo rk) Social History Tobacco [...] [facility] er [address] [place] 0[address] (Wo rk) 05/28/2022 Laboratory Appointment Lab 05/28/2022 Office Visit Cardiology Zulma Dolan MD [facility] [place] [address] Liz Poole PA [facility] [place] [address] 06/10/2022 Office Visit Dermatology Laura Scherer MD [facility] ER [address] [place], [place] 0[address] (Wo rk) documented as of this encounter Visit Diagnoses Diagnosis Chronic systolic heart failure documented in this encounter Care Teams Gas Appliance Mechanic Relationship Specialty Start Date End Date Lovely Vicente MD PCP - General 04/16/[address] [place] [address] documented as of this encounter
--- OUTSIDE RECORDS SUMMARY | 2022-05-22 08:14 | XMS_ITS | Encounter Summary ---
:1945 Author Organization [facility] [place] [address] Care Team Providers Name Role Phone Lovely Vicente MD Primary Care Provider Encounter Details Date Type Department Care Team Description 01/28/2022 Orders Only Software Test Analyst Zulma Finch ASCVD (art eriosclerotic [facility] cardiovascular disease) [facility] [place] [address] [place], [place] [phone] (Work) [phone] Social History Tobacco Use Types Packs/Day Years [...] [facility] [address] [place] [address] (Wo rk) 05/28/2022 Laboratory Appointment Lab 05/28/2022 Office Visit Cardiology Zulma Dolan MD [facility] [place] [address] Liz Poole PA [facility] [place] [address] 06/10/2022 Office Visit Dermatology Laura Scherer MD [facility] DR [address] [place], [place] 0[address] (Wo rk) documented as of this encounter Results (ABNORMAL) Basic Metabolic Panel (non-fasting) (01/30/2022 7:19 AM EDT) athologist Signature Glucose Lvl 237 (H) 65 - 199 [facility] mg/dL [facility] Comment: Diabetes: [...] Address City/State/[place] [address] documented in this encounter Visit Diagnoses Diagnosis ASCVD (arteriosclerotic cardiovascular d isease) Unspecified cardiovascular disease documented in this encounter Care Teams Computer Patternmaker Relationship Specialty Start Date End Date Lovely Vicente MD PCP - General 04/16/[address] [place] [address] documented as of this encounter
--- OUTSIDE RECORDS SUMMARY | 2022-05-22 08:14 | XMS_ITS | Encounter Summary ---
:1945 [place] [address] Care Team Providers Name Role Phone Lovely Vicente MD Primary Care Provider Encounter Details Date Type Department Care Team Description 12/30/2021 Notes Only [facility] [place] [address] Social History Tobacco Use Types Packs/Day [...] Dolan MD [facility] [place], [place] [address] (Wo rk) 05/28/2022 Laboratory Appointment Lab 05/28/2022 Office Visit Cardiology Zulma Dolan MD [facility] [place] [address] Liz Poole PA [facility] [place] [address] 06/10/2022 Office Visit Dermatology Laura Scherer MD [facility] ER [address]MAT [place], [place] 0[address] (Wo rk) documented as of this encounter Visit Diagnoses Not on filedocumented in this encounter Care Teams Production Line Operator Relationship Specialty Start Date End Date Lovely Vicente MD PCP - General 04/16/[address] [place] [address] documented as of this encounter
--- OUTSIDE RECORDS SUMMARY | 2022-05-22 08:14 | XMS_ITS | Encounter Summary ---
:1945 Author Organization [facility] [address] Care Team Providers Name Role Phone Lovely Vicente MD Primary Care Provider Reason for Visit Auth/Cert Specialty Diagnoses / Procedures Referred By Contact Refer red To Contact Diagnoses ASCVD (arteriosclerotic cardiovascular disease) [I25.10] Vitaliy Nobles MD [facility] Procedures PRO PERC TRLUML CORONARY STENT W/ANGIO ONE ART/BRANCH CARDIAC CATHETERIZATION STENT PLACEMENT-SINGLE MAJOR CORONARY ARTERY OR BRANCH [facility] [place] [address] Referral ID Status Reason Start Date Expiration Date Visits Requ ested Visits Authorized [id number] 1 1 Encounter Details Date Type Department Care Team Description 01/30/2022 Laboratory Lab 3L Katalina ASCVD (arterios clerotic Appointment [facility] cardiovas cular disease) [place] [address] Social History Tobacco Use Types Packs/Day Years [...] MD [facility] [place], [place] [address] (Wo rk) 05/28/2022 Laboratory Appointment Lab 05/28/2022 Office Visit Cardiology Zulma Dolan MD [facility] [place] [address] Liz Poole PA [facility] [place] [address] 06/10/2022 Office Visit Dermatology Laura Scherer MD [facility] DR TEJA [address]MAT [place], [place] [address] (Wo rk) documented as [...] [facility] 6.10 [facility] x10(3)/[facility] LABORATORY Lymphocytes % 12.0 % [facility] LABORATORY Lymphocytes Abs 0.8 (L) 0.9 - 3.[address] [facility] x10(3)/[facility] LABORATORY Monocytes % 8.1 % [facility] LABORATORY Monocyte Abs 0.6 0.3 - 0.[address] [facility] x10(3)/[facility] LABORATORY Eosinophils % 0.4 % [facility] LABORATORY Eosinophils Abs 0.0 0.0 - 0.[address] [facility] x10(3)/[facility] LABORATORY Basophils % 0.6 % [facility] LABORATORY Basophils Abs 0.0 0.0 - 0.[address] [facility] x10(3)/[facility] LABORATORY Immature Gran % 1.00 % WHITE [...] Organization Address City/State/[place] [address] (ABNORMAL) Hemogram (01/30/2022 7:19 AM EDT) Analysis Performed At Patho logist Time Signature WBC 6.8 4.0 - 9.[address] [facility] x10(3)/[facility] LABORATORY RBC 4.32 (L) 4.58 - [facility] 5.54 [facility] x10(6)/[facility] LABORATORY Hemoglobin 13.0 (L) 13.7 - [facility] 16.5 g/dL [facility] LABORATORY Hematocrit 39.8 (L) 40.5 - [facility] 48.5 % [facility]ATORY MCV 92.1 82.9 - [facility] 93.1 fL [facility]ATORY MCH 30.1 27.5 - [facility] 32.1 pg [facility] LABORATORY MCHC 32.7 32.0 - [place] 35.7 g/dL [facility] LABORATORY Platelets 172 145 - [address] [facility] x10(3)/[facility] LABORATORY RDWSD 54.5 (H) 36.0 - [place] 45.0 [facility] LABORATORY RDWCV 16.2 (H) 11.4 - [facility] 13.8 % [facility] LABORATORY MPV 9.0 7.6 - 12.9 [facility] LABORATORY nRBC % Auto 0.0 % [facility] LABORATORY nRBC Abs Auto 0.000 0.000 - [facility] 0.000 [facility] x10(3)/[facility] LABORATORY Specimen Anatomical Collection Method Collection Time Receive d Time (Source) Location / / Volume Laterality Blood 01/30/2022 7:19 AM 7:21 EDT AM EDT Resulting Agency Comment Spec In Lab Zulma BROWN HEMATOLOGY ORDERABLES Performing Organization Address City/State/[place] [address] (ABNORMAL) Basic Metabolic Panel (non-fasting) (01/30/2022 7:19 AM EDT) P athologist Signature Glucose Lvl 237 (H) 65 - [address] [facility] mg/dL [facility] LABORATORY [...] City/State/ZIP Code Phon e Number [place] [phone] HOSPITAL LABORATORY Drive documented in this encounter Visit Diagnoses Diagnosis ASCVD (arteriosclerotic cardiovascular d isease) Unspecified cardiovascular disease documented in this encounter Care Teams Twisting Press Operator Relationship Specialty Start Date End Date Lovely Vicente MD PCP - General 04/16/[address] [place] [address] documented as of this encounter
--- OUTSIDE RECORDS SUMMARY | 2022-05-22 08:14 | XMS_ITS | Encounter Summary ---
:1945 Author Organization [facility] [place] [address] Care Team Providers Name Role Phone Lovely Vicente MD Primary Care Provider Encounter Details Date Type Department Care Team Description 12/24/2021 Orders Only Magneto Electrician Zulma Finch ASCVD (art eriosclerotic [facility] cardiovascular disease) [facility] [address] [place], [place] [phone] (Work) [phone] Social History Tobacco Use Types Packs/Day Years [...] Dolan MD [facility] [place] [address] (Wo rk) 05/28/2022 Laboratory Appointment Lab 05/28/2022 Office Visit Cardiology Zulma Dolan MD [facility] [place] [address] Liz Poole PA [facility] [place] [address] 06/10/2022 Office Visit Dermatology Laura Scherer MD [facility] DR [address] [place], [place] [address] (Wo rk) documented as of this encounter Visit Diagnoses Diagnosis ASCVD (arteriosclerotic cardiovascular d isease) Unspecified cardiovascular disease documented in this encounter Care Teams High Heel Builder Relationship Specialty Start Date End Date Lovely Vicente MD PCP - General 04/16/[address] [place] [address] documented as of this encounter
--- OUTSIDE RECORDS SUMMARY | 2022-05-22 08:14 | XMS_ITS | Clinical Summary ---
:1945 Author Organization [facility] [place] [address] Care Team Providers Name Role Phone Lovely [...] Cardiology Zulma Dolan MD [facility] [place], [place] [address] (Wo rk) 05/28/2022 Laboratory Appointment Lab 05/28/2022 Office Visit Cardiology Zulma Dolan [place] [address] Liz Poole PA [facility] [place] [address] 06/10/2022 Office Visit Dermatology Laura Scherer MD [facility] DR [address] [place], [place] [address] (Wo rk) Health Maintenance Due Date Last Done Comments Covid-19 Vaccine (#1) 1945 Pneumoccocal Vaccine: 65+ (1 - PCV) 1952 Hepatitis C Screening 1964 Tdap adult 1965 Tetanus vaccine 1965 Zoster vaccine (1 of 2) 1996 Colonoscopy 01/16/2019 01/16/2014, 01/16/2014 Influenza (Flu) vaccine (1 of 1 - 03/26/2022 03/29/2013, Influenza standard series) Medical Devices Implanted Type Area Digitizer Operator Device Shelf Model / Identifier Expiration Serial / Date Lot Cable,Cut,Edg,Blnt,Ss,3tpr ([id number]) - [id number] IMPLANTS Midline: [employer] 04/01/2022 [id number] / Implanted: Qty: 4 on 07/07/2017 by Yuan Retana MD at [facility] [employer] - / [id number] Procedures Procedure Name Priority Date/Time Associated Comments [...] Time Signature WBC 7.2 4.0 - 9.5 [facility] x10(3[facility] LABORATORY RBC 4.41 (L) 4.58 - [facility] RYAN 5.54 [facility] x10(6)/[facility] LABORATORY Hemoglobin 13.2 (L) 13.7 - [facility] RYAN 16.5 g/dL [facility] LABORATORY Hematocrit 40.9 40.5 - [facility] RYAN 48.5 % [facility] LABORATORY MCV 92.7 82.9 - [facility] RYAN [address] [facility] LABORATORY MCH 29.9 27.5 - [place] 32.1 pg [facility] LABORATORY MCHC 32.3 32.0 - [facility] RYAN 35.7 g/dL [facility] LABORATORY Platelets 191 145 - 357 [facility] x10(3)/[facility] LABORATORY RDWSD 53.6 (H) 36.0 - [facility] RYAN [address] [facility] LABORATORY RDWCV 15.6 (H) 11.4 - [facility] RYAN 13.8 % [facility] LABORATORY MPV 8.7 7.6 - 12.9 [facility] [employer] [facility] LABORATORY nRBC % Auto 0.0 % [facility] LABORATORY nRBC Abs Auto 0.000 0.000 - [facility] RYAN 0.000 [facility] x10(3)/[facility] LABORATORY Specimen Anatomical Collection Method Collection Time Receive d Time (Source) Location / / Volume Laterality Blood 02/19/2022 8:06 AM 8:09 EDT AM EDT Resulting Agency Comment Spec In Lab Liz BROWN HEMATOLOGY ORDERABLES Performing Organization Address City/State/ZIP Code Phon e Number [place] [phone] HOSPITAL LABORATORY Drive (ABNORMAL) Differential, Automated (02/19/2022 8:06 AM EDT) [facility] gist Method Time Signature Neutrophils % 76.0 % [facility] LABORATORY Neutr Abs (ANC) 5.49 1.70 - [facility] 6.10 [facility] x10(3)/[facility] LABORATORY Lymphocytes % 10.8 % [facility] LABORATORY Lymphocytes Abs 0.8 (L) 0.9 - 3.2 [facility] x10(3)/[facility] LABORATORY Monocytes % 10.2 % [facility] LABORATORY Monocyte Abs 0.7 0.3 - 0.9 [facility] x10(3)/[facility] LABORATORY Eosinophils % 1.2 % [facility] LABORATORY Eosinophils Abs 0.1 0.0 - 0.4 [facility] x10(3)/[facility] LABORATORY Basophils % 0.8 % [facility] LABORATORY Basophils Abs 0.1 0.0 - 0.1 [facility] x10(3)/[facility] LABORATORY Immature Gran % 1.00 % ST [...] Organization Address City/State/[place] [address] (ABNORMAL) pro-Brain Natriuretic Peptide [...] Organization Address City/State/[place] [address] from Last 3 Months Insurance Payer Benefit Plan / Subscriber ID Effective Phone Address T ype Group Dates MEDICARE MEDICARE PART [id number] 2011-Prese [phone] [place] [id number] [employer] [place] [id number] 2018-Prese [phone] [address] [place] [address] [place] [address] Advance Directives Documents on File Type Date Recorded 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
--- OUTSIDE RECORDS SUMMARY | 2022-05-22 08:14 | XMS_ITS | Encounter Summary ---
:1945 Author Organization [facility] [place] [address] Care Team Providers Name Role Phone Lovely Vicente MD Primary Care Provider Encounter Details Date Type Department Care Team Description 12/12/2021 Telephone Cardiology [place] [facility] [place] [address] Social History Tobacco Use Types Packs/Day [...] - 12/12/2021 11:36 AM EDT RTC to [employer] regarding pharmacists questions as to whether the [...] [facility] [address] [place] [address] (Wo rk) 05/28/2022 Laboratory Appointment Lab 05/28/2022 Office Visit Cardiology Zulma Dolna MD [facility] [place] [address] Liz Poole PA [facility] [place] [address] 06/10/2022 Office Visit Dermatology Laura Scherer MD [facility] [address] [place], [place] [address] (Wo rk) documented as of this encounter Visit Diagnoses Not on filedocumented in this encounter Care Teams Research Electrician Relationship Specialty Start Date End Date Lovely Vicente MD PCP - General 04/16/[address] [place] [address] documented as of this encounter
--- OUTSIDE RECORDS SUMMARY | 2022-05-22 08:15 | XMS_ITS | Encounter Summary ---
:1945 Author Organization [facility] [place] [address] Care Team Providers Name Role Phone Lovely Vicente MD Primary Care Provider Reason for Referral Consultation (Routine) - Closed Specialty Diagnoses / Referred By Contact Referred To Contact Procedures Cardiac Rehabilitation Diagnoses Acute HFrEF (heart failure with reduced ejection fraction) Janneth Padilla, Cardiac Rehab, [address] [place] CARDIOLOGY DEPT. [address] [place] [address] Referral ID Status Reason Start Date Expiration Date Visits V isits Requested Authorized [id number] Closed Consult, 12/12/2021 12/12/2022 36 36 Test & Treat Reason for Visit Auth/Cert Specialty Diagnoses / Procedures Referred By Contact Refer red To Contact Diagnoses NSTEMI Procedures emerg ipi Referral ID Status Reason Start Date Expiration Date Visits Requ ested Visits Authorized [id number] 1 1 Encounter Details Date Type Department Care Team Description 12/08/2021 - Hospital Encounter Intermediate Cardiac Iker Cuevas MD [facility] [place] [address] Non-ST elevation myocardial infarction ( NSTEMI); 12/12/2021 Care Unit Ifeanyi Rene MD [facility] [place] [address] ST elevation myocardial infarction (STEM I), unspecified artery; [facility] Acute HFr EF (heart failure with reduced ejection fraction) [place] [address] Social History Tobacco Use Types Packs/Day Years [...] Peter PA-C Kelly LaFlamme PA-C Cardiovascular Medicine [phone] Discharge Diagnoses (Hospital Problems) and Secondary Diagnoses [...] 3.75 guiding catheter and a 3.5 Fr [place] 20 Mhz using Manual pullback. Imaging was successful. Image quality was good. The ostial LCX showed moderate diffuse atherosclerotic plaque with scattered three quadrant calcification. Measurements were performed after pre-dilation. Post Intervention: The stent was well expanded and apposed. Intravascular Ultrasound was performed in the distal LM using a 7 Fr EBU 3.75 guiding catheter and a 3.5 Fr [place] 20 Mhz using Manual pullback. Imaging [...] modification of this regimen. Consult [facility] Interventional Cardiology [...] mg PO daily in place of lasix. Lawrence is new for him and he will [...] to be ~$24/mo; affordable per patient. Post [facility] he was started on Eliquis. He [...] appointments: During 8am-5pm Wednesday through Wednesday call [phone] to speak with a nurse in the cardiology clinic All other times call [phone] and ask to speak to the community relations manager marketing production specialist. Return to work: One week Driving: No driving for 48 hours after catheterization. Follow up Appointments: PCP Lovely Vicente MD [phone] to see patient at the end of December for annual check up. Patient to see Dr. Lorenzana at 1120 am at December 19 for a post hospital check up. Paper Slitter Dr. De Oliveira to see you in [facility]. Left a message for office to set a date and time. Please call [phone] Nobles to see the patient for a same day cath in 2-3 weeks from now. Office to call with a date and time. For questions please call [phone] Home oxygen therapy: N/A Arrangements for VNA/home care: none Future Appointments and Orders Future Orders Complete By Expires Basic Metabolic Panel (non-fasting) [LAB15 Custom] 12/19/2021 (Approximate) 12/12/2022 Process Instructions: INCLUDES: Calcium, BUN, Creat, GFR, Glucose, Lytes Scheduling Instructions: Comments: Questions: Referral to Cardiac Rehab [NIB590 Custom] As directed Process Instructions: If no [...] appointments: During 8am-5pm Wednesday through Wednesday call [phone] to speak with a nurse in the cardiology clinic All other times call [phone] and ask to speak to the community relations manager marketing production specialist. Return to work: One week Driving: No driving for 48 hours after catheterization. Follow up Appointments: PCP Lovely Vicente MD [phone] to see patient at the end of December for annual check up. Patient to see Dr. Lorenzana at 1120 am at December 19 for a post hospital check up. Paper Slitter Dr. De Oliveira to see you in [facility]. Left a message for office to set a date and time. Please call [phone] Nobles to see the patient for a same day cath in 2-3 weeks from now. Office to call with a date and time. For questions please call [phone] Home oxygen therapy: N/A Arrangements for VNA/home [...] Progress Note Patient Name: Don Fatima Service: KITCHEN ASSISTANT / PA Responsible Attending: Ifeanyi Truong MD [...] given Lasix 80mg IV x1 in laborer sawmill. Tolerated procedure well. Home today at 11 [...] TROPONINT 1.13* 0.92* 0.89* Pertinent Radiographic/Diagnostic Results: R/[facility] 12/10/21 Hemodynamics: Right Heart Pressures Resting: [...] with MD Janneth Neville PA 12/12/2021 Pager [phone] Associated attestation - Ifeanyi Truong MD - [...] each meal) Desirae Jett APRN [facility] Endocrinology Diabetes Management Pager [phone] 20 minutes of this 35 minute visit [...] Progress Note Patient Name: Don Fatima Service: KITCHEN ASSISTANT / PA Responsible Attending: Iker Cuevas MD [...] given Lasix 80mg IV x1 in laborer sawmill. Tolerated procedure well. Review of Systems: Review [...] TROPONINT 1.13* 0.92* 0.89* Pertinent Radiographic/Diagnostic Results: R/[facility] 12/10/21 Hemodynamics: Right Heart Pressures Resting: Syst Diast EDP a v m RA 13 12 10 RV 50 17 PA 63 28 38 PCW 27 40 27 Hemodynamic Profile: Profile 1 CO 5.00 CI 2.48 TSR 1,168 SVR 1,008 TPR 608 PVR 176 Technique Estimated Birttanie Left Heart Pressures Resting: Syst Diast EDP [...] and answered his questions. Iker Cuevas MD [facility] Total time spent on review of records prior to visit, face to face time with patient during visit, documentation, and coordination of care with other clinicians: 25 minutes. . Iker Cuevas MD - 12/10/2021 12:30 PM EDT Images from the original note were not included. Inpatient Cardiology Progress Note Patient Name: Don Fatima Service: KITCHEN ASSISTANT / PA Responsible Attending: Iker Cuevas MD [...] given Lasix 80mg IV x1 in laborer sawmill. Tolerated procedure well. Review of Systems: Review [...] ??? heparin (porcine) infusion 1,600 Units/hr (12/09/21 7130) PRN Meds:ipratropium-albuteroL, senna-docusate, bisacodyL, sodium chloride 0.9 [...] TROPONINT 1.13* 0.92* 0.89* Pertinent Radiographic/Diagnostic Results: R/[facility] 12/10/21 Hemodynamics: Right Heart Pressures Resting: [...] Discussed with MD Migdalia Peter PA-C Pager #[phone] 12/10/2021 Cardiology Attending Note I have seen [...] updated and given pictures. Iker Cuevas MD [facility] Total time spent on review of records prior to visit, face to face time with patient during visit, documentation, and coordination of care with other clinicians: 35 minutes. Iker Cuevas MD - 12/09/2021 7:28 AM EDT Images from the original note were not included. Inpatient Cardiology Progress Note Patient Name: Don Fatima Service: KITCHEN ASSISTANT / PA Responsible Attending: Iker Cuevas MD [...] ??? heparin (porcine) infusion 1,600 Units/hr (12/09/21 8528) PRN Meds:ipratropium-albuteroL, sodium chloride 0.9 % (flush), [...] Discussed with MD Migdalia Peter PA-C Pager #[phone] 12/09/2021 Cardiology Attending Note I have seen [...] < 70 -CPAP tonight Iker Cuevas MD [facility] Total time spent on review [...] [facility] OR ??? PRO AMPUTATION FOOT, TRANSMETATARSAL Right 08/09/2017 AMPUTATION, TRANSMETATARSAL (WRVU 12.71) performed by Yonathan Smith MD at [facility] OR [...] [facility] ENDOSCOPY ??? PRO DRESSING CHANGE UNDER ANESTHESIA Right 08/11/2017 (MSURG) DRESSING CHANGE (FOR OTHER THAN IVAN) UNDER ANES. (WRVU 0.86) performed by Lamar Smith MD at [facility] OR ??? PRO ENDOSCOPY W/VIDEO-ASST VEIN HARVEST, CABG Right 07/07/2017 ENDOSCOPIC HARVEST VEIN(S) FOR CABG (WRVU 0.31) performed by Yuan Retana MD at [facility] OR ??? PRO THYROIDECTOMY 03/28/2013 THYROIDECTOMY, TOTAL OR COMPLETE performed by Manny Mcknight MD at [facility] MAIN OR Significant Family History: [...] Monitor for ADRs. Trend troponins. Admission EKG. [facility] 12/09; consented. TTE. Telemetry monitoring, daily [...] code #Diet-carb control; n.p.o. after midnight for [facility] #DVT prophy- heparin infusion #GI prophy- PPI Discussed with MD Morgan Peter PA-C APP2 pager [phone] 12/08/2021 Cardiology Attending Note I have seen [...] is type 1 due to graft or [place] coronary stenosis vs acute injury from CHF. 3. PAF: currrently in NSR. Have replaced warfarin with heparin 4. PAD: stable 5. DM: stable 6. CKD: will monitor and minimize contrast. Pt very appreciative of Dr. Yuan Retana's care in 2018. Will let him know patient is here. Iker Cuevas MD [facility] documented in this encounter Miscellaneous [...] Type: *No Product type* / Secondary Insurance: [employer] [place] Prescription Coverage: Yes This plan was [...] cath without complications. Migdalia Parker PA-C Pager #[phone] 12/10/2021 Initial Assessments - Nick Georges RN [...] COVID test: Lab Results Component Value Date [id number] Not Detected 12/08/2021 Past medical History: Past [...] spouse would be surrogate decision maker per [place] surrogate decision making law. (Only good for 180 days) Any patient receiving care at [facility] must abide by [place] law. The hierarchy for surrogate decision making [...] (i) The agent with financial power of document preparer microfilming or a conservator appointed in accordance with [...] - standard, cane - straight Home Address: [address] [place] [address] [place] [address] Social & Family Supports: All names listed below confirmed with patient as current and correct Extended Emergency Contact Information Primary Emergency Contact: Kisha Fatima Address: [address] [place] [address] [place] [address] [facility] Mobile Relation: Spouse Secondary Emergency Contact: Elba Swenson Address: [address] Mobile Relation: Child Current Care Provided [...] Type: *No Product type* / Secondary Insurance: [employer] [facility] Prescription Coverage: Yes Preferred Pharmacy: [facility] [address] [facility] [id number] - [address] [address] [place] Status: Patient is a : unable to assess Primary Care Provider: Lovely Vicente MD [phone] Patient/Caregiver Goals of Treatment: Get out of here Potential Needs for Transition of Care: none Agency Referrals: none patient has used [employer] in the past Transportation: no concerns Transportation Anticipated: family or friend will provide Concerns to be Addressed: patient refuses services, discharge planning Assessment: Patient is admitted to [facility] Service pager [phone] for 76 y.o.??male??with h/o??CAD s/p 3vCABG (THOMPSON-LAD, [...] status on current unit. Nick Georges RN vacuum plastic forming machine operator, Office of Care Management Pager: [phone] Brief Op Note - Vitaliy Nobles MD - 12/10/2021 8:31 AM EDT Images from the original note were not included. Formerly [facility] [place] [address] CORONARY ANGIOGRAM AND PERCUTANEOUS CORONARY INTERVENTION REPORT Patient: Don Fatima : 1945 MR number: [id number] Date of Service: 12/10/2021 Valve Lapper: Vitaliy Nobles MD Fellow: [place]o [place] MD [...] management and to provide a review of continuous churn buttermaker diabetes care. Diabetes History: Don Fatima has had diabetes for 10 years. He has been on insulin for the last several years andis managed by his PCP. Lives in [place], [place] with his . States that he [...] Hold] heparin (porcine) infusion 1,600 Units/hr (12/09/21 9948) PRN: [SEP Hold] ipratropium-albuteroL, [SEP Hold] senna-docusate, [...] provide care for your patient Desirae Shaper [facility] Endocrinology Pager [phone] 70 minutes of this [...] to remain on Med/Surg floor, please page [phone] for any further questions or concerns. LANDON [...] for further details. STEPHANIE Rebolledo 12/08/2021 Pager [phone] documented in this encounter Plan of Treatment Upcoming Encounters Date Type Specialty Care Team Description 05/28/2022 Appointment Cardiology Zulma Dolan MD [facility] [place], [place] [address] (Wo rk) 05/28/2022 Laboratory Appointment Lab 05/28/2022 Office Visit Cardiology Zulma Dolan MD [facility] [place] [address] Liz Poole PA [facility] [place] [address] 06/10/2022 Office Visit Dermatology Laura Scherer MD [facility] [address] [place], [place] [address] (Wo rk) Scheduled Referrals Name [...] [facility] mg/dL [facility] [...] City/State/[place] [address] (ABNORMAL) Differential, Automated (12/12/2021 4:51 AM EDT) athologist Signature Neutrophils % 75.4 % [facility] LABORATORY Neutr Abs (ANC) 5.95 1.70 - [facility] 6.10 [facility] x10(3)/[facility] LABORATORY Lymphocytes % 12.2 % [facility] LABORATORY Lymphocytes Abs 1.0 0.9 - 3.2 [facility] x10(3)/[facility] LABORATORY Monocytes % 9.5 % [facility] LABORATORY Monocyte Abs 0.8 0.3 - 0.9 [facility] x10(3)/[facility] LABORATORY Eosinophils % 1.8 % [facility] LABORATORY Eosinophils Abs 0.1 0.0 - 0.4 [facility] x10(3)/[facility] LABORATORY Basophils % 0.5 % [facility] LABORATORY Basophils Abs 0.0 0.0 - 0.1 [facility] x10(3)/[facility] LABORATORY Immature Gran % 0.60 [...] City/State/[place] [address] (ABNORMAL) Hemogram (12/12/2021 4:51 AM EDT) Analysis Performed At Patho logist Time Signature WBC 7.9 4.0 - 9.5 [facility] x10(3)/[facility] LABORATORY RBC 4.19 (L) 4.58 - [facility] 5.54 [facility] x10(6)/[facility] LABORATORY Hemoglobin 12.1 (L) 13.7 - [facility] g/dL [facility] LABORATORY Hematocrit 36.7 (L) 40.5 - [facility] 48.5 % [facility] LABORATORY MCV 87.6 82.9 - [facility] 93.1 fL [facility] LABORATORY MCH 28.9 27.5 - [facility] 32.1 pg [facility] LABORATORY MCHC 33.0 32.0 - [facility] 35.7 g/dL [facility] LABORATORY Platelets 231 145 - 357 [facility] x10(3)/[facility] LABORATORY RDWSD 47.2 (H) 36.0 - [facility] 45.0 [facility] LABORATORY RDWCV 14.6 (H) 11.4 - [facility] 13.8 % [facility] LABORATORY MPV 9.5 7.6 - 12.9 [facility] LABORATORY nRBC % Auto 0.0 % [facility] LABORATORY nRBC Abs Auto 0.000 0.000 - [facility] 0.000 [facility] x10(3)/[facility] LABORATORY Specimen Anatomical Collection Method Collection Time Receive d Time (Source) Location / / Volume Laterality Blood 12/12/2021 4:51 AM 2 5:06 EDT AM EDT Resulting Agency Comment Spec In Lab Bijan Sun MD HEMATOLOGY ORDERABLES Performing Organization Address City/[facility]/[place] [address] (ABNORMAL) Prothrombin Time (12/12/2021 4:51 AM EDT) P athologist Signature PT 14.9 (H) 9.4 - 12.5 [facility] LABORATORY INR 1.3 [facility] [...] Cuevas MD HEMATOLOGY ORDERABLES Performing Organization Address City/[facility]/[place] [address] (ABNORMAL) BMP w/fasting Glucose (12/12/2021 4:51 AM EDT) athologist Signature Glucose 152 (H) 65 - 99 [facility] Fasting mg/dL [facility] LABORATORY Comment: ?Fasting* Glucose [...] Organization Address City/State/[place] [address] Magnesium (12/12/2021 4:51 AM EDT) P athologist Signature Magnesium 1.02 0.69 - 1.07 [facility] mmol/L [facility] LABORATORY Specimen Anatomical Collection Method Collection Time Receive d Time (Source) Location / / Volume Laterality Blood 12/12/2021 4:51 AM 2 5:06 EDT AM EDT Resulting Agency Comment Spec In Lab Iker Cuevas MD CHEMISTRY ORDERABLES Performing Organization Address City/[facility]/[place] [address] POCT Glucose (12/12/2021 3:43 AM EDT) P athologist Signature POC Glucose 138 65 - 199 [facility] mg/dL [facility] [...] Organization Address City/State/[place] [address] POCT Glucose (12/11/2021 11:44 PM EDT) athologist Signature POC Glucose 124 65 - 199 [facility] mg/dL [facility] [...] Address City/[facility]/[place] [address] (ABNORMAL) POCT Glucose (12/11/2021 8:12 PM EDT) athologist Signature POC Glucose 200 (H) 65 - 199 [facility] mg/dL [facility] LABORATORY [...] Address City/[facility]/[place] [address] (ABNORMAL) POCT Glucose (12/11/2021 [...] Organization Address City/State/[place] [address] (ABNORMAL) POCT Glucose (12/11/2021 4:00 PM EDT) P athologist Signature POC Glucose 383 (H) 65 - 199 [facility] mg/dL [facility] LABORATORY Comment: Supplemental ranges: <140 mg/dL before meals <180 mg/dL all other times of the day Specimen Anatomical Collection Method Collection Time Receive d Time (Source) Location / / Volume Laterality Blood 12/11/2021 4:00 PM 4:00 EDT PM EDT Iker Cuevas MD POINT OF CARE TEST ORDERABLE S Performing Organization Address City/[facility]/[place] [address] (ABNORMAL) POCT Glucose (12/11/2021 12:01 PM EDT) athologist Signature POC Glucose 342 (H) 65 - 199 [facility] mg/dL [facility] LABORATORY [...] Address City/[facility]/[place] [address] COVID-19 PCR (12/11/2021 10:13 AM EDT) [facility] gist Method Time Signature SARS-CoV-2 Not Detected Not Detected [facility] RNA [facility] LABORATORY Comment: This result should be [...] diagnosis of COVID-19 is performed using the [employer] Dianna FRIEND S-CoV-2 Assay as authorized by the FDA Emergency Use Authorization (EUA). This EUA assay is intended for In-vitro Diagnostic (IVD) use with respiratory sp ecimens such as nasopharyngeal swabs collected from individuals during the ac chitimacha phase of infection. This assay is performed based on the instructions for use provided by [employer] and additional guidance provided by CDC and FDA. Testing is performed in the Clinical Genomics and Advanced Technolog y Laboratory within the Department of Pathology and Laboratory Medicine at [facility], certified under the [...] fact sheets at the following FDA website: https://www.fda.gov/medical-devices/vlphqqymwzb-jvdzrvs-2041-kzezx-85-abbhggtyi- ity-gzpsflwkhknmaw-cjrhfbs-devices/aufol-mrimgraoqii-gtdj SARS-Cov-2 RNA Source KITCHEN ASSISTANT Swab [facility] LABORATORY Specimen (Source) Anatomical Collection Method Collection Time Re ceived Time Location / / Volume Laterality Nasopharyngeal Swab 12/11/2021 10:13 05/03/2022 AM EDT 11:16 AM EDT Comment: Symptoms->Surveillance Resulting Agency Comment Spec In Lab Iker Cuevas MD MICROBIOLOGY - GENERAL ORDER [place] Performing Organization Address City/[facility] [place] [address] POCT Glucose (12/11/2021 7:34 AM EDT) athologist Signature POC Glucose 198 65 - 199 [facility] mg/dL [facility] LABORATORY Comment: Supplemental ranges: <140 mg/dL before meals <180 mg/dL all other times of the day Specimen Anatomical Collection Method Collection Time Receive d Time (Source) Location / / Volume Laterality Blood 12/11/2021 7:34 AM 2 7:34 EDT AM EDT Iker Cuevas MD POINT OF CARE TEST ORDERABLE S Performing Organization Address City/[facility]/[place] [address] (ABNORMAL) POCT Glucose (12/11/2021 5:07 AM EDT) P athologist Signature POC Glucose 208 (H) 65 - 199 [facility] mg/dL [facility] LABORATORY [...] Address City/[facility]/[place] [address] (ABNORMAL) Differential, Automated (12/11/2021 4:28 AM EDT) [facility] Method Time Signature Neutrophils % 79.6 % [facility] LABORATORY Neutr Abs (ANC) 7.01 (H) 1.70 - [facility] 6.10 [facility] x10(3)/[facility] L LABORATORY Lymphocytes % 9.1 % [facility] LABORATORY Lymphocytes Abs 0.8 (L) 0.9 - 3.2 [facility] x10(3)/[facility] LABORATORY Monocytes % 9.2 % [facility] LABORATORY Monocyte Abs 0.8 0.3 - 0.9 [facility] x10(3)/[facility] LABORATORY Eosinophils % 1.3 % [facility] LABORATORY Eosinophils Abs 0.1 0.0 - 0.4 [facility] x10(3)/[facility] LABORATORY Basophils % 0.5 % [facility] LABORATORY Basophils Abs 0.0 0.0 - 0.1 [facility] x10(3)/[facility] LABORATORY Immature Gran % 0.30 % [...] 0.00 - 0.04 x10(3)/[facility] LABORATORY Specimen Anatomical Collection Method Collection Time Receive d Time (Source) Location / / Volume Laterality Blood 12/11/2021 4:28 AM 4:37 EDT AM EDT Resulting Agency Comment Spec In Lab Bijan Sun MD HEMATOLOGY ORDERABLES Performing Organization Address City/[facility]/[place] [address] (ABNORMAL) Hemogram (12/11/2021 4:28 AM EDT) Analysis Performed At Patho logist Time Signature WBC 8.8 4.0 - 9.5 [facility] x10(3)/[facility] LABORATORY RBC 4.15 (L) 4.58 - [facility] 5.54 [facility] x10(6)/[facility] LABORATORY Hemoglobin 11.9 (L) 13.7 - [facility] 16.5 g/dL [facility] LABORATORY Hematocrit 36.9 (L) 40.5 - [facility] 48.5 % [facility] LABORATORY MCV 88.9 82.9 - [facility] 93.1 [facility] LABORATORY MCH 28.7 27.5 - [facility] 32.1 pg [facility] LABORATORY MCHC 32.2 32.0 - [facility] 35.7 g/dL [facility] LABORATORY Platelets 211 145 - 357 [facility] x10(3)/[facility] LABORATORY RDWSD 48.3 (H) 36.0 - [facility] 45.0 [facility] LABORATORY RDWCV 14.8 (H) 11.4 - [facility] 13.8 % [facility] LABORATORY MPV 9.6 7.6 - 12.9 [facility] LABORATORY nRBC % Auto 0.0 % [facility] LABORATORY nRBC Abs Auto 0.000 0.000 - [facility] 0.000 [facility] x10(3)/[facility] LABORATORY Specimen Anatomical Collection Method Collection Time Receive d Time (Source) Location / / Volume Laterality Blood 12/11/2021 4:28 AM 2 4:37 EDT AM EDT Resulting Agency Comment Spec In Lab Bijan Sun MD HEMATOLOGY ORDERABLES Performing Organization Address City/State/[place] [address] (ABNORMAL) Prothrombin Time (12/11/2021 4:28 AM EDT) P athologist Signature PT 17.7 (H) 9.4 - 12.5 [facility] LABORATORY INR 1.6 [facility] [...] Organization Address City/State/[place] [address] (ABNORMAL) BMP w/fasting Glucose (12/11/2021 4:28 AM EDT) athologist Signature Glucose 207 (H) 65 - 99 [facility] Fasting mg/dL [facility] LABORATORY Comment: ?Fasting* Glucose [...] Cuevas MD CHEMISTRY ORDERABLES Performing Organization Address City/[facility] [place] [address] Magnesium (12/11/2021 4:28 AM EDT) P athologist Signature Magnesium 1.04 0.69 - 1.07 [facility]/L [facility] LABORATORY Specimen Anatomical Collection Method Collection Time Receive d Time (Source) Location / / Volume Laterality Blood 12/11/2021 4:28 AM 2 4:37 EDT AM EDT Resulting Agency Comment Spec In Lab Iker Cuevas MD CHEMISTRY ORDERABLES Performing Organization Address City/State/ZIP Code Phon e Number [place] [id number] HOSPITAL LAB[address]ATORY [address] POCT Glucose (12/11/2021 3:58 AM EDT) athologist Signature POC Glucose 189 65 - 199 BARBAR[facility] RYAN mg/dL [facility] [...] Address City/[facility]/[place] [address] (ABNORMAL) POCT Glucose (12/10/2021 [...] Address City/[facility]/[place] [address] (ABNORMAL) POCT Glucose (12/10/2021 [...] City/State/[place] [address] Potassium (12/10/2021 7:46 PM EDT) athologist Signature Potassium 4.2 3.5 - 5.0 [facility] mmol/L [facility] LABORATORY Comment: Please note: [...] Cuevas MD CHEMISTRY ORDERABLES Performing Organization Address City/[facility]/[place] [address] (ABNORMAL) Basic Metabolic Panel (non-fasting) (12/10/2021 6:12 PM EDT) athologist Signature Glucose Lvl 246 (H) 65 - 199 [facility] mg/dL [facility] LABORATORY Comment: Diabetes: >=200 mg/dL plus symp toms BUN 50 (H) 10 - 20 mg/dL [facility] LABORATORY Creatinine 1.39 0.80 - 1.50 mg/dL [facility] LABORATORY Sodium 138 135 - 145 mmol/L [facility] LABORATORY Potassium Not Perf 3.5 - 5.0 [facility] LABORATORY Comment: Unable to quantitate due [...] Cuevas MD CHEMISTRY ORDERABLES Performing Organization Address City/[facility]/[place] [address] POCT Glucose (12/10/2021 4:59 PM EDT) P athologist Signature POC Glucose 158 65 - 199 [facility] mg/dL [facility] [...] City/State/[place] [address] (ABNORMAL) POCT Glucose (12/10/2021 12:43 PM EDT) P athologist Signature POC Glucose 241 (H) 65 - 199 BARBARA DAVIS mg/dL [facility] LABORATORY Comment: Supplemental ranges: <140 mg/dL before meals <180 mg/dL all other times of the day Specimen Anatomical Collection Method Collection Time Receive d Time (Source) Location / / Volume Laterality Blood 12/10/2021 12:43 12/10/2021 PM EDT 12:43 PM EDT Iker Cuevas MD POINT OF CARE TEST ORDERABLE S Performing Organization Address City/State/ZIP Code Phon e Number [facility] [address] EKG 12 Lead (12/10/2021 11:17 AM EDT) Component Value Ref Range Test Analysis Performed Pathologis t Method Time At Signature Ventricular rate 62 BPM MUSE SYSTEM Atrial Rate 62 BPM MUSE SYSTEM P-R Interval 142 ms MUSE SYSTEM QRS Duration 100 ms MUSE SYSTEM Q-T Interval 434 ms MUSE SYSTEM QTC Calculated 440 ms MUSE SYSTEM (Bezet) Calculated P [place] 34 degrees MUSE SYSTEM Calculated R [place] -39 degrees MUSE SYSTEM Calculated T [place] 92 degrees MUSE SYSTEM INTERPRETATION Normal sinus [...] Laterality Volume Narrative 12/10/2021 12:04 PM EDT ?[facility] ? Cardiac Cathete rization/Intervention Report ? Patient Name: Don Fatima. ? Procedure Date: 12/10/2021 ? A #: [id number] ? Primary Physician: Nobles, Vitaliy P ? Case #: [id number] ? File Name: [id number] ? Catheterization Order Number: [id number] ? [facility] ? Final Report [place], [place] ? Patient Name: ? Don E. Stewa rt ? ID#: ?[id number] ? : ?1945 ? Procedure Date: ? December 10, 2021 ? Case #: ? [id number] ? Room: ? 1 ? Case Physician: [...] as ASA Class III. e [facility] clinical frailty [...] was Urgent. The indication for ?the laborer sawmill visit is ACS great er than 24 [...] ?3.75 guiding catheter and a 3.5 Fr [place] [place] 20 Mhz using Manual ?pullback. ??Imaging [...] ?3.75 guiding catheter and a 3.5 Fr [place] [place] 20 Mhz using Manual ?pullback. ??Imaging [...] Procedure Note Vitaliy Nobles MD - 01/14/2022 [facility] Cardiac Catheterization/Intervention Re port Patient Name: Kushal Don VedaMadiha Procedure Date: 12/10/2021 A #: [id number] Primary Physician: Vitaliy Nobles Case #: [id number] File Name: [id number] Catheterization Order Number: [id number] [facility] Final Report [place], [place] Patient Name: Don Fatima ID#: [...] was Urgent. The indication for the laborer sawmill visit is ACS greater than 24 hrs [...] and a 3.5 Fr [place] [facility] [place] 20 Mhz using Manual pullback. Imaging [...] and a 3.5 Fr [place] [place] 20 Mhz using Manual pullback. Imaging was successful. Image quality was good. The distal LM showed moderate diffuse atherosclero tic plaque. Post Intervention: The stent was well e xpanded and apposed. Indication for Intervention: Coronary intervention was indicated for primary therapy for an acute myocardial infarction. The priority for the procedure was Urgent. The [facility] indication for the procedure was N MARKIE-ACS. [...] modification of this regimen. Consult D [facility] Interventional Cardiology for questions. The 1 year [...] [facility] mg/dL [facility] [...] City/State/[place] [address] (ABNORMAL) POCT Glucose (12/10/2021 9:48 AM EDT) athologist Signature POC Glucose 279 (H) 65 - 199 [facility] mg/dL [facility] LABORATORY Comment: Supplemental ranges: <140 mg/dL before meals <180 mg/dL all other times of the day Specimen Anatomical Collection Method Collection Time Receive d Time (Source) Location / / Volume Laterality Blood 12/10/2021 9:48 AM 9:48 EDT AM EDT Iker Cuevas MD POINT OF CARE TEST ORDERABLE S Performing Organization Address City/State/[place] [address] (ABNORMAL) POCT Glucose (12/10/2021 9:07 AM EDT) P athologist Signature POC Glucose 268 (H) 65 - 199 [facility] mg/dL [facility] LABORATORY Comment: Supplemental ranges: <140 mg/dL before meals <180 mg/dL all other times of the day Specimen Anatomical Collection Method Collection Time Receive d Time (Source) Location / / Volume Laterality Blood 12/10/2021 9:07 AM 9:07 EDT AM EDT Iker Cuevas MD POINT OF CARE TEST ORDERABLE S Performing Organization Address City/State/[place] [address] (ABNORMAL) Point of Care Blood Gas Historical (12/10/2021 9:04 AM EDT) Patholo gist Method Time Signature POC pH 7.40 7.35 - [facility] 7.45 [facility] LABORATORY POC PCO2 40 35 - 45 [facility] mmHg [facility] LABORATORY POC PO2 63 (L) 85 - 104 [facility] LABORATORY POC Base Excess 0.0 -3.0 - 3.0 [facility] K mmol/L [facility] LABORATORY POC HCO3 24.8 20.0 - [facility] 26.0 [facility] mmol/[facility] LABORATORY POC Sodium 143 135 - 145 [facility] mmol/L [facility] LABORATORY POC Potassium 3.7 3.5 - 5.0 [facility] mmol/L [facility] LABORATORY POC Ionized Ca 1.07 (L) 1.15 - [facility] 1.33 [facility] mmol/L HOSPITAL LABORATORY POC Hematocrit 30.0 (L) 40.0 - [facility] 51.0 % [facility] LABORATORY POC Calc Hgb 10.2 (L) 13.7 - [facility] 17.5 g/dL [facility] LABORATORY Comment: The calculation of hemoglobin f rom hematocrit assumes a normal MCHC. POC Bgas Loc CC LAB [facility] LABORATORY Specimen Anatomical Collection Method Collection Time Receive d Time (Source) Location / / Volume Laterality Blood 12/10/2021 9:04 AM 2 EDT 12:00 PM EDT Ifeanyi Truong MD CHEMISTRY ORDERABLES Performing Organization Address City/[facility]/[place] [address] (ABNORMAL) POCT Glucose (12/10/2021 7:19 AM EDT) athologist Signature POC Glucose 274 (H) 65 - 199 [facility] mg/dL [facility] [...] Address City/[facility]/[place] [address] Heparin (unfractionated) Level (12/10/2021 4:25 AM EDT) athologist Signature Heparin UFH 0.69 IU/mL [facility] LABORATORY Comment: Heparin (anti-Xa) levels should [...] Address City/State/ZIP Code Phon e Number [address] (ABNORMAL) Differential, Automated (12/10/2021 4:25 AM EDT) [facility] Method Time Signature Neutrophils % 79.8 % [facility] LABORATORY Neutr Abs (ANC) 7.47 (H) 1.70 - [facility] 6.10 [facility] x10(3)/[facility] LABORATORY Lymphocytes % 10.6 % [facility] LABORATORY Lymphocytes Abs 1.0 0.9 - 3.2 [facility] x10(3)/[facility] LABORATORY Monocytes % 8.4 % [facility] LABORATORY Monocyte Abs 0.8 0.3 - 0.9 [facility] x10(3)/[facility] LABORATORY Eosinophils % 0.6 % [facility] LABORATORY Eosinophils Abs 0.1 0.0 - 0.4 [facility] x10(3)/[facility] LABORATORY Basophils % 0.2 % [facility] LABORATORY Basophils Abs 0.0 0.0 - 0.1 [facility] x10(3)/[facility] LABORATORY Immature Gran % 0.40 % [...] 0.04 0.00 - 0.04 x10(3)/[facility] LABORATORY Specimen Anatomical Collection Method Collection Time Receive d Time (Source) Location / / Volume Laterality Blood 12/10/2021 4:25 AM 4:34 EDT AM EDT Resulting Agency Comment Spec In Lab Morgan BROWN HEMATOLOGY ORDERABLES Performing Organization Address City/[facility]/ZIP Code Phon e Number [address] (ABNORMAL) Hemogram (12/10/2021 4:25 AM EDT) Analysis Performed At Patho logist Time Signature WBC 9.4 4.0 - 9.5 [facility] x10(3)/[facility] LABORATORY RBC 3.81 (L) 4.58 - [facility] 5.54 [facility] x10(6)/[facility] LABORATORY Hemoglobin 11.1 (L) 13.7 - [facility] 16.5 g/dL [facility] LABORATORY Hematocrit 34.0 (L) 40.5 - [facility] 48.5 % [facility] LABORATORY MCV 89.2 82.9 - [facility] 93.1 [facility] LABORATORY MCH 29.1 27.5 - [facility] 32.1 pg [facility] LABORATORY MCHC 32.6 32.0 - [facility] 35.7 g/dL [facility] LABORATORY Platelets 183 145 - 357 [facility] x10(3)/[facility] LABORATORY RDWSD 49.9 (H) 36.0 - [facility] 45.0 [facility] LABORATORY RDWCV 15.2 (H) 11.4 - [facility] 13.8 % [facility] LABORATORY MPV 9.8 7.6 - 12.9 [facility] LABORATORY nRBC % Auto 0.0 % [facility] LABORATORY nRBC Abs Auto 0.000 0.000 - [facility] 0.000 [facility] x10(3)/[facility] LABORATORY Specimen Anatomical Collection Method Collection Time Receive d Time (Source) Location / / Volume Laterality Blood 12/10/2021 4:25 AM 2 4:34 EDT AM EDT Resulting Agency Comment Spec In Lab Morgan BROWN HEMATOLOGY ORDERABLES Performing Organization Address City/State/[place] [address] (ABNORMAL) Prothrombin Time (12/10/2021 4:25 AM EDT) P athologist Signature PT 20.0 (H) 9.4 - 12.5 [facility] LABORATORY INR 1.7 [facility] [...] City/State/ZIP Code Phon e Number [place] [id number] HOSPITAL LABORATORY Drive (ABNORMAL) BMP w/fasting Glucose (12/10/2021 4:25 AM EDT) athologist Signature Glucose 210 (H) 65 - 99 [facility] Fasting mg/dL [facility] LABORATORY Comment: ?Fasting* Glucose [...] City/State/[place] [address] Magnesium (12/10/2021 4:25 AM EDT) P athologist Signature Magnesium 0.95 0.69 - 1.07 [facility]/L [facility] LABORATORY Specimen Anatomical Collection Method Collection Time Receive d Time (Source) Location / / Volume Laterality Blood 12/10/2021 4:25 AM 2 4:34 EDT AM EDT Resulting Agency Comment Spec In Lab Iker Cuevas MD CHEMISTRY ORDERABLES Performing Organization Address City/[facility]/[place] [address] POCT Glucose (12/10/2021 1:58 AM EDT) athologist Signature POC Glucose 164 65 - 199 [facility] mg/dL [facility] LABORATORY [...] Address City/[facility]/[place] [address] (ABNORMAL) POCT Glucose (12/09/2021 9:02 PM EDT) athologist Signature POC Glucose 313 (H) 65 - 199 [facility] mg/dL [facility] LABORATORY [...] Address City/[facility]/[place] [address] Heparin (unfractionated) Level (12/09/2021 7:30 PM EDT) athologist Signature Heparin UFH 0.48 IU/mL [facility] LABORATORY Comment: Heparin (anti-Xa) levels should [...] City/State/[place] [address] (ABNORMAL) Basic Metabolic Panel (non-fasting) (12/09/2021 7:30 PM EDT) athologist Signature Glucose Lvl 372 (H) 65 - 199 [facility] mg/dL [facility] [...] Organization Address City/State/[place] [address] (ABNORMAL) POCT Glucose (12/09/2021 6:34 PM EDT) P athologist Signature POC Glucose 408 (H) 65 - 199 [facility] mg/dL [facility] LABORATORY Comment: Supplemental ranges: <140 mg/dL before meals <180 mg/dL all other times of the day Specimen Anatomical Collection Method Collection Time Receive d Time (Source) Location / / Volume Laterality Blood 12/09/2021 6:34 PM 2 6:34 EDT PM EDT Iker Cuevas MD POINT OF CARE TEST ORDERABLE S Performing Organization Address City/[facility]/[place] [address] (ABNORMAL) POCT Glucose (12/09/2021 6:32 PM EDT) P athologist Signature POC Glucose 356 (H) 65 - 199 [facility] mg/dL [facility] LABORATORY Comment: Supplemental ranges: <140 mg/dL before meals <180 mg/dL all other times of the day Specimen Anatomical Collection Method Collection Time Receive d Time (Source) Location / / Volume Laterality Blood 12/09/2021 6:32 PM 2 6:32 EDT PM EDT Iker Cuevas MD POINT OF CARE TEST ORDERABLE S Performing Organization Address City/State/[place] [address] (ABNORMAL) POCT Glucose (12/09/2021 4:19 PM EDT) athologist Signature POC Glucose 347 (H) 65 - 199 [facility] mg/dL [facility] [...] Address City/[facility]/[place] [address] Heparin (unfractionated) Level (12/09/2021 1:29 PM EDT) athologist Signature Heparin UFH 0.42 IU/mL [facility] LABORATORY Comment: Heparin (anti-Xa) levels should [...] Organization Address City/State/[place] [address] (ABNORMAL) POCT Glucose (12/09/2021 12:02 PM EDT) P athologist Signature POC Glucose 235 (H) 65 - 199 [facility] mg/dL [facility] LABORATORY [...] Address City/[facility]/[place] [address] (ABNORMAL) POCT Glucose (12/09/2021 9:44 AM EDT) P athologist Signature POC Glucose 214 (H) 65 - 199 [facility] mg/dL [facility] LABORATORY Comment: Supplemental ranges: <140 mg/dL before meals <180 mg/dL all other times of the day Specimen Anatomical Collection Method Collection Time Receive d Time (Source) Location / / Volume Laterality Blood 12/09/2021 9:44 AM 9:44 EDT AM EDT Iker Cuevas MD POINT OF CARE TEST ORDERABLE S Performing Organization Address City/[facility]/[place] [address] EKG 12 Lead (12/09/2021 7:57 AM EDT) Component Value Ref Range Test Analysis Performed Pathologis t Method Time At Signature Ventricular rate 101 BPM MUSE SYSTEM Atrial Rate 101 BPM MUSE SYSTEM P-R Interval 150 ms MUSE SYSTEM QRS Duration 112 ms MUSE SYSTEM Q-T Interval 364 ms MUSE SYSTEM QTC Calculated 471 ms MUSE SYSTEM (Bezet) Calculated P [place] 59 degrees MUSE SYSTEM Calculated R [place] -42 degrees MUSE SYSTEM Calculated T [place] 102 degrees MUSE SYSTEM INTERPRETATION Sinus tachycardia Occasional Premature ventricular com plexes MUSE SYSTEM Left axis deviation 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) Abnormal ECG When compared with ECG of 08-DEC-2021 16:40, Premature ventricular complexes are now Present Confirmed by MD Fernandez Danette ([id number]) on 12/10/2021 4:55:06 PM Specimen Anatomical Collection [...] [facility] mg/dL [facility] [...] Organization Address City/State/[place] [address] (ABNORMAL) Hemoglobin A1c (12/09/2021 [...] Mellitus, Diabetes Care 2013; 36: Suppl. 1, P04-70 Est Avg Gluc See note mg/dL ST [...] with hemoglobinopathies. Additional resources are available on [facility] ADA website. Macario HAMMOND, Ruthann J, Deysi R, et al. ??Tr anslating the A1C assay into estimated average glucose values. ??Diabetes Care 2008:31(8):7835-9425. Specimen Anatomical Collection Method Collection Time Receive d Time (Source) Location / / Volume Laterality Blood Venous Draw / 12/09/2021 6:18 AM 12/10/19 22 Unknown EDT 12:24 PM EDT Resulting Agency Comment Spec In Lab Migdalia BROWN CHEMISTRY ORDERABLES Performing Organization Address City/State/[place] [address] (ABNORMAL) Prothrombin Time (12/09/2021 6:18 AM EDT) athologist Signature PT 26.6 (H) 9.4 - 12.5 [facility] LABORATORY INR 2.3 [facility] [...] Migdalia BROWN HEMATOLOGY ORDERABLES Performing Organization Address City/[facility]/ZIP Code Phon e Number [address] Heparin (unfractionated) Level (12/09/2021 6:18 AM EDT) P athologist Signature Heparin UFH 0.24 IU/mL [facility] LABORATORY Comment: Heparin (anti-Xa) levels should [...] Cuevas MD HEMATOLOGY ORDERABLES Performing Organization Address City/[facility]/[place] [address] (ABNORMAL) Differential, Automated (12/09/2021 6:18 AM EDT) Patholo gist Method Time Signature Neutrophils % 91.5 % [facility] LABORATORY Neutr Abs (ANC) 15.78 (H) 1.70 - [facility] 6.10 [facility] x10(3)/[facility] L LABORATORY Lymphocytes % 2.9 % [facility] LABORATORY Lymphocytes Abs 0.5 (L) 0.9 - 3.2 [facility] x10(3)/[facility] LABORATORY Monocytes % 4.9 % [facility] LABORATORY Monocyte Abs 0.8 0.3 - 0.9 [facility] x10(3)/[facility] LABORATORY Eosinophils % 0.0 % [facility] LABORATORY Eosinophils Abs 0.0 0.0 - 0.4 [facility] x10(3)/[facility] LABORATORY Basophils % 0.2 % [facility] LABORATORY Basophils Abs 0.0 0.0 - 0.1 [facility] x10(3)/[facility] LABORATORY Immature Gran % 0.50 % [...] City/State/[place] [address] (ABNORMAL) Hemogram (12/09/2021 6:18 AM EDT) Analysis Performed At Patho logist Time Signature WBC 17.2 (H) 4.0 - 9.5 [facility] x10(3)/[facility] LABORATORY RBC 4.32 (L) 4.58 - [facility] 5.54 [facility] x10(6)/[facility] LABORATORY Hemoglobin 12.6 (L) 13.7 - [facility] 16.5 g/dL [facility] LABORATORY Hematocrit 38.9 (L) 40.5 - [facility] 48.5 % [facility] LABORATORY MCV 90.0 82.9 - [facility] 93.1 [facility] LABORATORY MCH 29.2 27.5 - [facility] 32.1 pg [facility] LABORATORY MCHC 32.4 32.0 - [facility] 35.7 g/dL [facility] LABORATORY Platelets 193 145 - 357 [facility] x10(3)/[facility] LABORATORY RDWSD 50.4 (H) 36.0 - [facility] 45.0 [facility] LABORATORY RDWCV 15.2 (H) 11.4 - [facility] 13.8 % [facility] LABORATORY MPV 9.5 7.6 - 12.9 [facility] LABORATORY nRBC % Auto 0.0 % [facility] LABORATORY nRBC Abs Auto 0.000 0.000 - [facility] x10(3)/[facility] LABORATORY Specimen Anatomical Collection Method Collection Time Receive d Time (Source) Location / / Volume Laterality Blood 12/09/2021 6:18 AM 6:33 EDT AM EDT Resulting Agency Comment Spec In Lab Morgan BROWN HEMATOLOGY ORDERABLES Performing Organization Address City/State/[place] [address] Lipid Panel (Reflex Direct LDL) (12/09/2021 6:18 AM EDT) P athologist Signature Chol, Total 105 mg/dL [facility] LABORATORY Comment: Lower Risk: <200 mg/dL Average Risk: 200-239 mg/dL Higher Risk: >pg=257 mg/dL Triglycerides 133 mg/dL [facility] LABORATORY Comment: Average Risk/Lower Risk: <150 mg/dL Borderline High Risk: 150-199 mg/dL High Risk: 200-499 mg/dL Very High Risk: >uh=326 mg/dL HDL 42 mg/dL [facility] LABORATORY Comment: Males: ?? Higher Risk: <40 mg/dL Females: ?? Higher Risk: <50 mg/dL LDL Cholesterol 36 mg/dL [facility] LABOR[facility]ORY Comment: Lowest Risk: <100 mg/dL Lower Risk: 100-129 mg/dL Borderline High Risk: 130-159 mg/dL High Risk: 160-189 mg/dL Very High Risk: >lv=148 mg/dL Chol/HDL Ratio 2.5 ratio [facility] LABORATORY Lipid Interpretation See Note [facility] LABORATORY Comment: Lipid management should be guided by a p atient? s ASCVD risk, goals and preferences. ACC/AHA Guidelines recommend high intens ity statin if clinical ASCVD or LDL greater than or equal to 190 mg/dL. [email or web address] Adults aged 40-75 with LDL 70-189 mg/dL should have their 10 year ASCVD risk estimated with the ACC/AHA ASCVD risk es timator http://tools.acc.org/AKGUO-Uvtn-Qpocvzoi r/ Statin should be discussed if risk [...] City/State/[place] [address] TSH (12/09/2021 6:18 AM EDT) athologist Signature TSH 1.60 0.27 - 4.20 [facility] mcIU/mL [facility] LABORATORY Comment: Reference Interval (mcIU/mL): Females: ??First Trimester: 0.23-3.88 ??Second Trimester: 0.22-3.90 ??Third Trimester: 0.44-4.66 Specimen Anatomical Collection Method Collection Time Receive d Time (Source) Location / / Volume Laterality Blood 12/09/2021 6:18 AM 2 6:33 EDT AM EDT Resulting Agency Comment Spec In Lab Iker Cuevas MD CHEMISTRY ORDERABLES Performing Organization Address City/[facility]/[place] [address] Hepatic Function Panel (12/09/2021 6:18 AM EDT) athologist Signature Total Protein 7.3 6.1 - 8.0 [facility] g/dL [facility]ORATORY Albumin 4.2 3.2 - 5.2 [facility] R[facility] g/dL [facility]ORATORY AST 25 0 - 39 [facility] R[facility] unit/L [facility] LABORATORY ALT 15 0 - 55 [facility] unit/L [facility] LABORATORY Alk Phos 75 40 - 130 [facility] unit/L [facility] LABORATORY Total 1.1 0.2 - 1.3 [employer] Bilirubin mg/dL [facility] LABORATORY Bili, Direct 0.2 0.0 - 0.3 [facility] mg/dL [facility] LABORATORY Specimen Anatomical Collection Method Collection Time Receive d Time (Source) Location / / Volume Laterality Blood 12/09/2021 6:18 AM 2 6:33 EDT AM EDT Resulting Agency Comment Spec In Lab Iker Cuevas MD CHEMISTRY ORDERABLES Performing Organization Address City/[facility] [place] [address] (ABNORMAL) BMP w/fasting Glucose (12/09/2021 6:18 AM EDT) P athologist Signature Glucose 235 (H) 65 - 99 [facility] Fasting mg/dL [facility] LABORATORY Comment: ?Fasting* Glucose [...] Address City/State/ZIP Code Phon e Number [address] Magnesium (12/09/2021 6:18 AM EDT) P athologist Signature Magnesium 0.81 0.69 - 1.07 [facility] mmol/L [facility] LABORATORY Specimen Anatomical Collection Method Collection Time Receive d Time (Source) Location / / Volume Laterality Blood 12/09/2021 6:18 AM 2 6:33 EDT AM EDT Resulting Agency Comment Spec In Lab Iker Cuevas MD CHEMISTRY ORDERABLES Performing Organization Address City/State/[place] [address] (ABNORMAL) Troponin (12/09/2021 6:18 AM EDT) athologist Signature Troponin-T 1.13 (H) 0.00 - [facility] 0.00 ng/mL [facility] LABORATORY Comment: The 99th [...] additional sample may be indicated. Reference: Third [place] Definition of Myocardial Infarction. Journal of the [place] [employer] 2012;60:1581-98 Specimen Anatomical Collection Method Collection Time Receive d Time (Source) Location / / Volume Laterality Blood 12/09/2021 6:18 AM 6:33 EDT AM EDT Resulting Agency Comment Spec In Lab Iker Cuevas MD CHEMISTRY ORDERABLES Performing Organization Address City/State/ZIP Code Phon e Number [place] [id number] HOSPITAL LAB[address]ORY Drive XR Chest One View [...] have questions please contact the health daycare assistant that requested your imaging first. ? [...] have questions please contact the health daycare assistant that requested your imaging first. Amber Sanches MD IMG DX ORDERABLES (ABNORMAL) BLOOD GAS 2 ARTERIAL (12/09/2021 5:14 AM EDT) Analysis Performed At Path logis Time Signature pH Art 7.43 7.35 - [facility] 7.45 [facility] LABORATORY pCO2 Art 36 35 - 45 [facility] LABORATORY pO2 Art 67 (L) 85 - 104 [facility] LABORATORY HCO3 Art 23.4 20.0 - [facility] 26.0 [facility] mmol/L [facility] LABORATORY BE Art -0.9 -3.0 - 3.0 [facility] mmol/L [facility] LABORATORY Hgb Blood Gas 13.2 (L) 13.7 - [facility] 16.5 g/dL [facility] LABORATORY O2HB Art 91.3 (L) 94.0 - [facility] 97.0 % [facility] LABORATORY COHB Art 0.4 % [facility] LABORATORY Comment: Nonsmokers: 0.5-1.5% COHB Smokers: Variable, but usually less than 10% Toxic: 20-30% COHB Lethal: Greater than 60% COHB METHB Art 0.4 <=1.5 % [facility] LABORATORY [...] [facility] LABORATORY FIO2 Art 35 % [facility] LABORATORY Flow Art 8.0 LPM [facility] LABORATORY PF Ratio Art [address] [facility] LABORATORY Specimen Anatomical Collection Method Collection Time Receive d Time (Source) Location / / Volume Laterality Blood 12/09/2021 5:14 AM 5:14 EDT AM EDT Iker Cuevas MD CHEMISTRY ORDERABLES Performing Organization Address City/State/[place] [address] POCT Glucose (12/09/2021 4:46 AM EDT) athologist Signature POC Glucose 198 65 - 199 [facility] mg/dL [facility] [...] Organization Address City/State/[place] [address] (ABNORMAL) POCT Glucose (12/09/2021 [...] Organization Address City/State/[place] [address] (ABNORMAL) POCT Glucose (12/08/2021 [...] Organization Address City/State/[place] [address] Heparin (unfractionated) Level (12/08/2021 10:03 PM EDT) P athologist Signature Heparin UFH 0.18 IU/mL [facility] LABORATORY Comment: Heparin (anti-Xa) levels should [...] City/State/[place] [address] (ABNORMAL) Troponin (12/08/2021 10:03 PM EDT) athologist Signature Troponin-T 0.92 (H) 0.00 - [facility] 0.00 ng/mL [facility] LABORATORY Comment: The 99th [...] additional sample may be indicated. Reference: Third [place] Definition of Myocardial Infarction. Journal of the [place] [employer] 2012;60:1581-98 Specimen Anatomical Collection Method Collection Time Receive d Time (Source) Location / / Volume Laterality Blood 12/08/2021 10:03 12/08/2021 PM EDT 10:31 PM EDT Resulting Agency Comment Spec In Lab Iker Cuevas MD CHEMISTRY ORDERABLES Performing Organization Address City/[facility]/[place] [address] (ABNORMAL) POCT Glucose (12/08/2021 8:22 PM EDT) athologist Signature POC Glucose 429 (H) 65 - 199 [facility] RYAN mg/dL [facility] LABORATORY [...] Address City/[facility]/[place] [address] (ABNORMAL) POCT Glucose (12/08/2021 [...] Address City/[facility]/[place] [address] Magnesium (12/08/2021 6:02 PM EDT) athologist Signature Magnesium 0.86 0.69 - 1.07 [facility] mmol/L [facility] LABORATORY Specimen Anatomical Collection Method Collection Time Receive d Time (Source) Location / / Volume Laterality Blood 12/08/2021 6:02 PM 6:36 EDT PM EDT Resulting Agency Comment Spec In Lab Iker Cuevas MD CHEMISTRY ORDERABLES Performing Organization Address City/State/ZIP Code Phon e Number [address] (ABNORMAL) Basic Metabolic Panel (non-fasting) (12/08/2021 6:02 PM EDT) athologist Signature Glucose Lvl 392 (H) 65 - 199 [facility] mg/dL [facility] [...] Organization Address City/State/[place] [address] (ABNORMAL) Differential, Automated (12/08/2021 6:02 PM EDT) [facility] gist Method Time Signature Neutrophils % 89.5 % [facility] LABORATORY Neutr Abs (ANC) 13.97 (H) 1.70 - [facility] 6.10 [facility] x10(3)/[facility] LABORATORY Lymphocytes % 3.7 % [facility] LABORATORY Lymphocytes Abs 0.6 (L) 0.9 - 3.2 [facility] x10(3)/[facility] LABORATORY Monocytes % 6.1 % [facility] LABORATORY Monocyte Abs 1.0 (H) 0.3 - 0.9 [facility] x10(3)/[facility] LABORATORY Eosinophils % 0.0 % [facility] LABORATORY Eosinophils Abs 0.0 0.0 - 0.4 [facility] x10(3)/[facility] LABORATORY Basophils % 0.2 % [facility] LABORATORY Basophils Abs 0.0 0.0 - 0.1 [facility] x10(3)/[facility] LABORATORY Immature Gran % 0.50 % [...] City/State/[place] [address] (ABNORMAL) Hemogram (12/08/2021 6:02 PM EDT) Analysis Performed At Patho logist Time Signature WBC 15.6 (H) 4.0 - 9.5 [facility](3[facility] LABORATORY RBC 4.05 (L) 4.58 - [facility] RYAN 5.54 [facility] x10(6)/[facility] LABORATORY Hemoglobin 11.8 (L) 13.7 - [facility] 16.5 g/dL [facility] LABORATORY Hematocrit 35.8 (L) 40.5 - [facility] 48.5 % [facility]ATORY MCV 88.4 82.9 - [facility] 93[facility]1 [facility] LABORATORY MCH 29.1 27.5 - [facility] RYAN 32.1 pg [facility] LABORATORY MCHC 33.0 32.0 - [facility] 35.7 g/dL [facility] LABORATORY Platelets 178 145 - 357 [facility] x10(3)/[facility] LABORATORY RDWSD 49.3 (H) 36.0 - [facility] RYAN 45.0 [facility] LABORATORY RDWCV 15.1 (H) 11.4 - [facility] RYAN 13.8 % [facility] LABORATORY MPV 10.4 7.6 - 12.9 [facility] LABORATORY nRBC % Auto 0.0 % [facility] LABORATORY nRBC Abs Auto 0.000 0.000 - [facility] 0.000 [facility] x10(3)/[facility] LABORATORY Specimen Anatomical Collection Method Collection Time Receive d Time (Source) Location / / Volume Laterality Blood 12/08/2021 6:02 PM 2 6:36 EDT PM EDT Resulting Agency Comment Spec In Lab Morgan BROWN HEMATOLOGY ORDERABLES Performing Organization Address City/State/ZIP Code Ph[place] [address] (ABNORMAL) Troponin (12/08/2021 6:02 PM EDT) athologist Signature Troponin-T 0.89 (H) 0.00 - [facility] 0.00 ng/mL [facility] LABORATORY Comment: The 99th [...] additional sample may be indicated. Reference: Third [place] Definition of Myocardial Infarction. Journal of the [place] [employer] 2012;60:1581-98 Specimen Anatomical Collection Method Collection Time Receive d Time (Source) Location / / Volume Laterality Blood 12/08/2021 6:02 PM 2 6:36 EDT PM EDT Resulting Agency Comment Spec In Lab Iker Cuevas MD CHEMISTRY ORDERABLES Performing Organization Address City/State/ZIP [place] [address] COVID-19 PCR (12/08/2021 5:00 PM EDT) [facility] Method Time Signature SARS-CoV-2 Not Detected Not Detected [facility] RNA PCR [facility] LABORATORY Comment: This result should be [...] using the Simplexa COVID-19 Direct Assay by [employer] Corporationjoi marcum as authorized by the FDA issued [...] of Pathology and Laboratory Medicine at [facility], certified under the Clinical Laboratory Improvement Amendmen [...] clinical management guidance information are available at [facility] Coronavirus Disease 2019 (COVID-19) webpage under Information fo r Healthcare Professionals (https://www.cdc.gov/coronavirus/2019-nc ov/hcp/index.html). Additional information about this and ot her EUA tests can be found in provider and patient fact sheets at the following FDA website: https://www.fda.gov/medical-devices/fguqlwxqemi-yiyyhyc-3244-tqtrt-80-qjszxkzrd- siz-uiokpvotftstxu-gvrcvhg-devices/kpbaj-ftgddwqgxec-ygik SARS-CoV-2 Source KITCHEN ASSISTANT Swab [facility] LABORATORY Specimen (Source) Anatomical Collection Method Collection Time Re ceived Time Location / / Volume Laterality Nasopharyngeal Swab 12/08/2021 5:00 12/08 PM EDT 6:03 PM EDT Comment: Symptoms->Surveillance Resulting Agency Comment Spec In Lab Iker Cuevas MD MICROBIOLOGY - GENERAL ORDER ROBSON Performing Organization Address City/[facility] Phon e Number [place] [id number] HOSPITAL LABORATORY Drive EKG 12 Lead (12/08/2021 4:40 PM EDT) Component Value Ref Range Test Analysis Performed Pathologis t Method Time At Signature Ventricular rate 78 BPM MUSE SYSTEM Atrial Rate 78 BPM MUSE SYSTEM P-R Interval 152 ms MUSE SYSTEM QRS Duration 96 ms MUSE SYSTEM Q-T Interval 396 ms MUSE SYSTEM QTC Calculated 451 ms MUSE SYSTEM (Bezet) Calculated P [place] 44 degrees MUSE SYSTEM Calculated R [place] -31 degrees MUSE SYSTEM Calculated T [place] 124 degrees MUSE SYSTEM INTERPRETATION Normal sinus [...] Cuevas MD ECG ORDERABLES Performing Organization Address City/[facility] Phon e Number MUSE SYSTEM (ABNORMAL) POCT Glucose (12/08/2021 4:34 PM EDT) P athologist Signature POC Glucose 400 (H) 65 - 199 [facility] mg/dL [facility] LABORATORY Comment: Supplemental ranges: <140 mg/dL before meals <180 mg/dL all other times of the day Specimen Anatomical Collection Method Collection Time Receive d Time (Source) Location / / Volume Laterality Blood 12/08/2021 4:34 PM 4:34 EDT PM EDT Iker Cuevas MD POINT OF CARE TEST ORDERABLE S Performing Organization Address City/State/ZIP Code Phon e Number [facility] [place] [address] documented in this encounter [...] Coronary atherosclerosis of unspecified type of vessel, [place] or graft Cardiomyopathy, ischemic Other specified [...] before cath) 0835 (Given - Provider: mEma Garcia, VAMSI) 0828 (Given - Provider: Lilliana [...] solution 1 mg( Linked Group 2) 08 ([facility] Hold - Provider: Admin Adt - Reason: Transfer to a Procedural area)1230 ([facility] Unhold - Provider: Admin [...] oral geL(Linked Group 2) 08 ([facility] Hold - Provider: Admin Adt - Reason: Transfer to a Procedural area)1230 ([facility] Unhold - Provider: Admin [...] Provider: Mendy Schaffer)0952 (Given - Provider: Mendy Schafefr) ONCE PRN, Starting on Wed12/10/21 at 090 [...] (Intra-Procedure), Routine niCARdipine (Cardene) (100 mcg/mL) dilution (JEWEL INSPECTOR) (CANCELED) 1030 (Given - Provider: Vitaliy [...] - Reason: Transfer to a Procedural area)1230 ([facility] Unhold - Provider: Admin Adt) 1 tablet, Oral, 2 TIMES DAILY PRN, Start ing on Wed12/09/21 at 1628, Until Wed12/12/21 at 1312, Constipation, Routine sodium chloride 0.9 % (flush) (BD PosiFlush Normal Sean ine 0.9) flush 5-20 mL 08 ([facility] Hold - Provider: Admin Adt - Reason: Transfer to a Procedural area)1230 ([facility] Unhold - Provider: Admin [...] episode. & nbsp; For persistent hypoglycemia, con pre sales technical consultant longer-acting treatment for the duration of [...] documented in this encounter Care Teams Director Operations Broadcast Relationship Specialty Start Date End Date Lovely Vicente MD PCP - General 04/16/[address] [place] [address] [address] [place] [address] documented as of this encounter
--- OUTSIDE RECORDS SUMMARY | 2022-05-22 08:15 | XMS_ITS | Encounter Summary ---
:1945 Author Organization [facility] [place] [address] Care Team Providers Name Role Phone Lovely Vicente MD Primary Care Provider Reason for Visit Auth/Cert Specialty Diagnoses / Procedures Referred By Contact Refer red To Contact Diagnoses NSTEMI Procedures emerg ipi Referral ID Status Reason Start Date Expiration Date Visits Requ ested Visits Authorized [id number] 1 1 Encounter Details Date Type Department Care Team Description 12/10/2021 Surgery Train Brakeman Asa Coulter MD CARDIAC CATHETERIZATION [facility] DR Siddiqu[place] [address] [place] [address] [phone] (Wo rk) Social History Tobacco Use Types [...] Don Fatima Patient Age: 76 y.o. Language: Bermudian Race: White Ethnicity: Not nor Admit date: [...] Peter PA-C Kelly LaFlamme PA-C Cardiovascular Medicine [phone] Discharge Diagnoses (Hospital Problems) and Secondary Diagnoses [...] 3.75 guiding catheter and a 3.5 Fr [place] Lummi 20 Mhz using Manual pullback. Imaging was successful. Image quality was good. The ostial LCX showed moderate diffuse atherosclerotic plaque with scattered three quadrant calcification. Measurements were performed after pre-dilation. Post Intervention: The stent was well expanded and apposed. Intravascular Ultrasound was performed in the distal LM using a 7 Fr EBU 3.75 guiding catheter and a 3.5 Fr [place] Lummi 20 Mhz using Manual pullback. Imaging was successful. Image quality was good. The distal LM showed moderate diffuse atherosclerotic plaque. Post Intervention: The stent was well expanded and apposed. Indication for Intervention: Coronary intervention was indicated for primary therapy for an acute myocardial infarction. The priority for the procedure was Urgent. The [facility] indication for the procedure [...] may require modification of this regimen. Consult [facility] Interventional Cardiology [...] congestion and cardiomegaly. ?? TTE from [facility] 12/08/21 ? Prior Cardiac Studies: TTE 07/28/2019 [...] thyroidectomy in 2012 who presented to [facility] with 1 week progressing breathlessness with patient [...] with Liz Poole PA-C. ?? At [facility], respiratory distress with hypoxia 86% on room [...] appointments: During 8am-5pm Wednesday through Wednesday call [phone] to speak with a nurse in the cardiology clinic All other times call [phone] and ask to speak to the human resources benefits coordinator absorption plant operator helper. Return to work: One week Driving: No driving for 48 hours after catheterization. Follow up Appointments: PCP Lovely Vicente MD [phone] to see patient at the end of December for annual check up. Patient to see Dr. Lorenzana at 1120 am at December 19 for a post hospital check up. Bio Medical Technician Dr. De Oliveira to see you in [facility]. Left a message for office to set a date and time. Please call [phone] Nobles to see the patient for a same day cath in 2-3 weeks from now. Office to call with a date and time. For questions please call [phone] Home oxygen therapy: N/A Arrangements for VNA/home care: none Future Appointments and Orders Future Orders Complete By Expires Basic Metabolic Panel (non-fasting) [LAB15 Custom] 12/19/2021 (Approximate) 12/12/2022 Process Instructions: INCLUDES: Calcium, BUN, Creat, GFR, Glucose, Lytes Scheduling Instructions: Comments: Questions: Referral to Cardiac Rehab [FTR943 Custom] As directed Process Instructions: If no [...] appointments: During 8am-5pm Wednesday through Wednesday call [phone] to speak with a nurse in the cardiology clinic All other times call [phone] and ask to speak to the human resources benefits coordinator absorption plant operator helper. Return to work: One week Driving: No driving for 48 hours after catheterization. Follow up Appointments: PCP Lovely Vicente MD [phone] to see patient at the end of December for annual check up. Patient to see Dr. Lorenzana at 1120 am at December 19 for a post hospital check up. Bio Medical Technician Dr. De Oliveira to see you in [facility]. Left a message for office to set a date and time. Please call [phone] Nobles to see the patient for a same day cath in 2-3 weeks from now. Office to call with a date and time. For questions please call [phone] Home oxygen therapy: N/A Arrangements for VNA/home [...] Progress Note Patient Name: Don Fatima Service: ADULT SERVICES LIBRARIAN / PA Responsible Attending: Ifeanyi Truong MD [...] Lasix 80mg IV x1 in labor relations consultant. Tolerated procedure well. Home today at 11 [...] vascular congestion and cardiomegaly. TTE from [facility] 12/08/21 Prior Cardiac Studies: TTE 07/28/2019 SUMMARY: [...] with MD Janneth Neville PA 12/12/2021 Pager [phone] Associated attestation - Ifeanyi Truong MD - [...] ratio for each meal) Desirae Jett APRN [facility] Endocrinology Diabetes Management Pager [phone] 20 minutes of this 35 minute visit [...] Progress Note Patient Name: Don Fatima Service: ADULT SERVICES LIBRARIAN / PA Responsible Attending: Iker Cuevas MD [...] Lasix 80mg IV x1 in labor relations consultant. Tolerated procedure well. Review of Systems: Review [...] Intake/Output Summary (Last 24 hours) at 12/11/2021 0943 Last data filed at 12/11/2021 0508 Gross [...] vascular congestion and cardiomegaly. TTE from [facility] 12/08/21 Prior Cardiac Studies: TTE 07/28/2019 SUMMARY: [...] and answered his questions. Iker Cuevas MD [facility] Total time spent on review of records prior to visit, face to face time with patient during visit, documentation, and coordination of care with other clinicians: 25 minutes. . Iker Cuevas MD - 12/10/2021 12:30 PM EDT Images from the original note were not included. Inpatient Cardiology Progress Note Patient Name: Don Fatima Service: ADULT SERVICES LIBRARIAN / PA Responsible Attending: Iker Cuevas MD [...] Lasix 80mg IV x1 in labor relations consultant. Tolerated procedure well. Review of Systems: Review [...] 0.92* 0.89* Pertinent Radiographic/Diagnostic Results: R/[facility] 12/10/21 Hemodynamics: Right Heart Pressures Resting: [...] vascular congestion and cardiomegaly. TTE from [facility] 12/08/21 Prior Cardiac Studies: TTE 07/28/2019 SUMMARY: [...] Discussed with MD Migdalia Peter PA-C Pager #[phone] 12/10/2021 Cardiology Attending Note I have seen [...] updated and given pictures. Iker Cuevas MD [facility] Total time spent on review of records prior to visit, face to face time with patient during visit, documentation, and coordination of care with other clinicians: 35 minutes. Iker Cuevas MD - 12/09/2021 7:28 AM EDT Images from the original note were not included. Inpatient Cardiology Progress Note Patient Name: Don Fatima Service: ADULT SERVICES LIBRARIAN / PA Responsible Attending: Iker Cuevas MD [...] vascular congestion and cardiomegaly. TTE from [facility] 12/08/21 Prior Cardiac Studies: TTE 07/28/2019 SUMMARY: [...] Discussed with MD Migdalia Peter PA-C Pager #[phone] 12/09/2021 Cardiology Attending Note I have seen and examined the patient. I agree with the findings above. Developed CHF early this am despite getting more iv lasix last evening. Feeling better now. INR > 2. Lungs still wet at base. Echo at [facility] showed EF 35% with mild mod MR slightly lower than last value here. -vit K 2.5 orally to facilitate correction of INR- this will take 12-24 hours to take effect -furosemide 80 mg iv now -postpone right and left heart cath until tomorrow given INR and ADHF -increase statin to achieve LDL < 70 -CPAP tonight Iker Taverass MD [facility] Total time spent on review of [...] thyroidectomy in 2012 who presented to [facility] with 1 week progressing breathlessness with patient [...] 03/2021 with Liz Poole PA-C. At [facility], respiratory distress with hypoxia 86% on room [...] [facility] MA[facility] OR ??? PRO AMPUTATION FOOT, TRANSMETATARSAL Right 08/09/2017 AMPUTATION, TRANSMETATARSAL (WRVU 12.71) performed by Yonathan Smith MD at [facility] MAIN OR [...] at [facility] ENDOSCOPY ??? PRO DRESSING CHANGE UNDER ANESTHESIA Right 08/11/2017 (MSURG) DRESSING CHANGE (FOR OTHER THAN IVAN) UNDER ANES. (WRVU 0.86) performed by Lamar Smith MD at [facility] MAIN OR ??? PRO ENDOSCOPY W/VIDEO-ASST VEIN HARVEST, CABG Right 07/07/2017 ENDOSCOPIC HARVEST VEIN(S) FOR CABG (WRVU 0.31) performed by Yuan Retana MD at [facility] MAIN OR ??? PRO THYROIDECTOMY 03/28/2013 THYROIDECTOMY, TOTAL OR COMPLETE performed by Manny Mcknight MD at [facility] MA[facility] OR Significant Family History: Family [...] 65 - 199 mg/dL Labs at [facility] 12/08/2021-troponin I 8004 (UN L <60), 12/07- [...] ADRs. Trend troponins. Admission EKG. [facility] 12/09; consented. TTE. Telemetry monitoring, daily [...] control; n.p.o. after midnight for [facility] #DVT prophy- heparin infusion #GI prophy- PPI Discussed with MD Morgan Peter PA-C APP2 pager [phone] 12/08/2021 Cardiology Attending Note I have seen [...] is type 1 due to graft or agdaagux coronary stenosis vs acute injury from CHF. 3. PAF: currrently in NSR. Have replaced warfarin with heparin 4. PAD: stable 5. DM: stable 6. CKD: will monitor and minimize contrast. Pt very appreciative of Dr. Yuan Retana's care in 2018. Will let him know patient is here. Iker Cuevas MD [facility] documented in this encounter Miscellaneous Notes [...] Type: *No Product type* / Secondary Insurance: [employer] [place] Prescription Coverage: Yes This plan was formulated with input from patient and team. All are in agreement with plan. Consult Note - Octavia Vaughn RN - 12/11/2021 8:01 AM EDT oDn Fatima has been admitted with NSTEMI and [...] cath without complications. Migdalia Parker PA-C Pager #[phone] 12/10/2021 Initial Assessments - Nick Georges RN [...] COVID test: Lab Results Component Value Date [id number] Not Detected 12/08/2021 Past medical History: Past [...] spouse would be surrogate decision maker per [place] surrogate decision making law. (Only good for 180 days) Any patient receiving care at [facility] must abide by [place] law. The hierarchy for surrogate decision making [...] The agent with financial power of traffic controller cable or a conservator appointed in accordance with [...] standard, cane - straight Home Address: [address] [place] [address] [place] [address] Social & Family Supports: All names listed below confirmed with patient as current and correct Extended Emergency Contact Information Primary Emergency Contact: Kisha Fatima Address: [address] [place] [address] [place] [address] [facility] Mobile Relation: Spouse Secondary Emergency Contact: Elba Swenson Address: [place], [place] [id number] [place] [address] Mobile Relation: Child Current Care Provided by: [...] [facility] [address] [facility] [address] - [place], [place] - [address] [address] [place] Status: Patient is a : unable to assess Primary Care Provider: Lovely Vicente MD [phone] Patient/Caregiver Goals of Treatment: Get out of here Potential Needs for Transition of Care: none Agency Referrals: none patient has used [facility] in the past Transportation: no concerns Transportation Anticipated: family or friend will provide Concerns to be Addressed: patient refuses services, discharge planning Assessment: Patient is admitted to [facility] Service pager [phone] for 76 y.o.??male??with h/o??CAD s/p 3vCABG (THOMPSON-LAD, [...] status on current unit. Nick Georges RN lens edge grinder machine, Office of Care Management Pager: [phone] Brief Op Note - Vitaliy Nobles MD - 12/10/2021 8:31 AM EDT Images from the original note were not included. [facility] [place] [address] CORONARY ANGIOGRAM AND PERCUTANEOUS CORONARY INTERVENTION REPORT Patient: Don Fatima : 1945 MR number: [id number] Date of Service: 12/10/2021 Forming And Assembling Supervisor: Vitaliy Nobles MD Fellow: [place] [...] review of [facility] diabetes care. Diabetes History: Don Fatima has had diabetes for 10 years. He has been on insulin for the last several years andis managed by his PCP. Lives in [place], [place] with his . States that he [...] your patient Desirae Jett APRN Endocrinology Pager [phone] 70 minutes of this 80 minute visit [...] for further details. STEPHANIE Rebolledo 12/08/2021 Pager [phone] documented in this encounter Plan of Treatment Upcoming Encounters Date Type Specialty Care Team Description 05/28/2022 Appointment Cardiology Zulma Dolan MD [facility] [place], [place] [address] (Wo lissa) 05/28/2022 Laboratory Appointment Lab 05/28/2022 Office Visit Cardiology Zulma Dolan MD [facility] [place] [address] Liz Poole PA [facility] [place] [address] 06/10/2022 Office Visit Dermatology Laura Scherer MD [facility] DR [address]JA [place], [place] [address] (Wo rk) Scheduled Referrals Name [...] 215 (H) 65 - 199 [facility] mg/dL [facility] Comment: Supplemental ranges: <140 mg/dL before meals <180 mg/dL all other times of the day Specimen Anatomical Collection Method Collection Time Receive d Time (Source) Location / / Volume Laterality Blood 12/12/2021 7:42 AM 7:42 EDT AM EDT Ifeanyi Truong MD POINT OF CARE TEST ORDERABLE S Performing Organization Address City/State/[place] [address] (ABNORMAL) Differential, Automated (12/12/2021 4:51 AM EDT) athologist Signature Neutrophils % 75.4 % [facility] Neutr Abs (ANC) 5.95 1.70 - [facility] 6.10 [facility] x10(3)/[facility] LABORATORY Lymphocytes % 12.2 % [facility] Lymphocytes Abs 1.0 0.9 - 3.2 [facility] x10(3)/[facility] LABORATORY Monocytes % 9.5 % [facility] Monocyte Abs 0.8 0.3 - 0.9 [facility] x10(3)/[facility] LABORATORY Eosinophils % 1.8 % [facility] Eosinophils Abs 0.1 0.0 - 0.4 [facility] x10(3)/[facility] LABORATORY Basophils % 0.5 % [facility] Basophils Abs 0.0 0.0 - 0.1 [facility] x10(3)/[facility] LABORATORY [...] differential will be performed. Melsia Gran Abs 0.05 (H) 0.00 - 0.04 x10(3)/[facility] LABORATORY Specimen Anatomical Collection Method Collection Time Receive d Time (Source) Location / / Volume Laterality Blood 12/12/2021 4:51 AM 2 5:06 EDT AM EDT Resulting Agency Comment Spec In Lab Bijan Sun MD HEMATOLOGY ORDERABLES Performing Organization Address City/State/ZIP Code Phon e Number [address] (ABNORMAL) Hemogram (12/12/2021 4:51 AM EDT) Analysis Performed At Patho logist Time Signature WBC 7.9 4.0 - 9.5 [facility] x[facility](3[facility] LABORATORY RBC 4.19 (L) 4.58 - [place] 5.54 [facility] x10(6)/[facility] LABORATORY Hemoglobin 12.1 (L) 13.7 - [place] 16.5 g/dL [facility] Hematocrit 36.7 (L) 40.5 - [facility] 48.5 % [facility] MCV 87.6 82.9 - [facility] [address] [facility] LABORATORY MCH 28.9 27.5 - [place] 32.1 pg [facility] MCHC 33.0 32.0 - [place] 35.7 g/dL [facility] Platelets 231 145 - 357 [facility] x10(3)/[facility] LABORATORY RDWSD 47.2 (H) 36.0 - [facility] RYAN 45.[address] [facility] LABORATORY RDWCV 14.6 (H) 11.4 - [facility] RYAN 13.8 % [facility] MPV 9.5 7.6 - 12.9 [facility] RYAN [facility] LABORATORY nRBC % Auto 0.0 % [facility] nRBC Abs Auto 0.000 0.000 - [place] 0.000 [facility] x10(3)/[facility] LABORATORY Specimen Anatomical Collection Method Collection Time Receive d Time (Source) Location / / Volume Laterality Blood 12/12/2021 4:51 AM 2 5:06 EDT AM EDT Resulting Agency Comment Spec In Lab Bijan Sun MD HEMATOLOGY ORDERABLES Performing Organization Address City/[facility]/[place] [address] (ABNORMAL) Prothrombin Time (12/12/2021 4:51 AM EDT) athologist Signature PT 14.9 (H) 9.4 - 12.5 [facility] LABORATORY INR 1.3 [facility] [...] Organization Address City/State/[place] [address] (ABNORMAL) BMP w/fasting Glucose (12/12/2021 4:51 AM EDT) athologist Signature Glucose 152 (H) 65 - 99 [facility] Fasting mg/dL [facility] Comment: ?Fasting* Glucose Interpretive C riteria [...] Diabetes Mellitus, Position Statement from the [place] [employer]. ??Diabete s Care, Volume 33, [...] City/State/[place] [address] Magnesium (12/12/2021 4:51 AM EDT) athologist Signature Magnesium 1.02 0.69 - 1.07 [place] mmol/L [facility] Specimen Anatomical Collection Method Collection Time Receive d Time (Source) Location / / Volume Laterality Blood 12/12/2021 4:51 AM 2 5:06 EDT AM EDT Resulting Agency Comment Spec In Lab Iker Cuevas MD CHEMISTRY ORDERABLES Performing Organization Address City/[facility]/ZIP Code Phon e Number [address] POCT Glucose (12/12/2021 3:43 AM EDT) athologist Signature POC Glucose 138 65 - 199 [place] mg/dL [facility] Comment: Supplemental ranges: <140 mg/dL before meals <180 mg/dL all other times of the day Specimen Anatomical Collection Method Collection Time Receive d Time (Source) Location / / Volume Laterality Blood 12/12/2021 3:43 AM 2 3:43 EDT AM EDT Iker Cuevas MD POINT OF CARE TEST ORDERABLE S Performing Organization Address City/State/ZIP Code Phon e Number [address] POCT Glucose (12/11/2021 11:44 PM EDT) athologist Signature POC Glucose 124 65 - 199 [place] mg/dL [facility] Comment: Supplemental ranges: <140 mg/dL before meals <180 mg/dL all other times of the day Specimen Anatomical Collection Method Collection Time Receive d Time (Source) Location / / Volume Laterality Blood 12/11/2021 11:44 12/11/2021 PM EDT 11:44 PM EDT Iker Cuevas MD POINT OF CARE TEST ORDERABLE S Performing Organization Address City/State/ZIP Code Phon e Number [address] (ABNORMAL) POCT Glucose (12/11/2021 8:12 PM EDT) athologist Signature POC Glucose 200 (H) 65 - 199 [place] mg/dL [facility] Comment: Supplemental ranges: <140 mg/dL before meals <180 mg/dL all other times of the day Specimen Anatomical Collection Method Collection Time Receive d Time (Source) Location / / Volume Laterality Blood 12/11/2021 8:12 PM 2 8:12 EDT PM EDT Iker Cuevas MD POINT OF CARE TEST ORDERABLE S Performing Organization Address City/State/[place] [address] (ABNORMAL) POCT Glucose (12/11/2021 6:50 PM EDT) P athologist Signature POC Glucose 245 (H) 65 - 199 [place] mg/dL [facility] Comment: Supplemental ranges: <140 mg/dL before meals <180 mg/dL all other times of the day Specimen Anatomical Collection Method Collection Time Receive d Time (Source) Location / / Volume Laterality Blood 12/11/2021 6:50 PM 2 6:50 EDT PM EDT Iker Cuevas MD POINT OF CARE TEST ORDERMATTHEW S Performing Organization Address City/State/[place] [address] (ABNORMAL) POCT Glucose (12/11/2021 4:00 PM EDT) P athologist Signature POC Glucose 383 (H) 65 - 199 [facility] RYAN mg/dL [facility] Comment: Supplemental ranges: <140 mg/dL before meals <180 mg/dL all other times of the day Specimen Anatomical Collection Method Collection Time Receive d Time (Source) Location / / Volume Laterality Blood 12/11/2021 4:00 PM 2 4:00 EDT PM EDT Iker Cuevas MD POINT OF CARE TEST ORDERABLE S Performing Organization Address City/State/[place] [address] (ABNORMAL) POCT Glucose (12/11/2021 12:01 PM EDT) P athologist Signature POC Glucose 342 (H) 65 - 199 [place] mg/dL [facility] Comment: Supplemental ranges: <140 mg/dL before meals <180 mg/dL all other times of the day Specimen Anatomical Collection Method Collection Time Receive d Time (Source) Location / / Volume Laterality Blood 12/11/2021 12:01 12/11/2021 PM EDT 12:01 PM EDT Iker Cuevas MD POINT OF CARE TEST ORDERABLE S Performing Organization Address City/State/ZIP Code [place] [address] COVID-19 PCR (12/11/2021 10:13 AM EDT) [facility] Method Time Signature SARS-CoV-2 Not Detected [...] diagnosis of COVID-19 is performed using the [employer] (Inspect Manager)[employer] S-CoV-2 Assay as authorized by the FDA Emergency Use Authorization (EUA). This EUA assay is intended for In-vitro Diagnostic (IVD) use with respiratory sp ecimens such as nasopharyngeal swabs collected from individuals during the ac cher[place] phase of infection. This assay is performed based on the instructions for use provided by [employer] and additional guidance provided by CDC [...] is infected. As required or requested by [facility], positive specimens may be sent [...] clinical management guidance information are available at [facility] CDC Coronavirus Disease 2019 (COVID-19) webpage under Information fo r Healthcare Professionals (https://www.cdc.gov/coronavirus/2019-nc ov/hcp/index.html) Additional information about this and ot her EUA tests can be found in provider and patient fact sheets at the following FDA website: https://www.fda.gov/medical-devices/eokjhruhucu-npdgymt-6818-pxcal-44-mozhllbhp- cwi-nlrcnkrujhmwli-goraomj-devices/lmmqm-bzsnnpymvxc-dzup SARS-Cov-2 RNA Source ADULT SERVICES LIBRARIAN Swab [facility] Specimen (Source) Anatomical Collection Method Collection Time Re ceived Time Location / / Volume Laterality Nasopharyngeal Swab 12/11/2021 10:13 11/23 AM EDT 11:16 AM EDT Comment: Symptoms->Surveillance Resulting Agency Comment Spec In Lab Iker Cuevas MD MICROBIOLOGY - GENERAL ORDER [place] Performing Organization Address City/State/[place] [address] POCT Glucose (12/11/2021 7:34 AM EDT) P athologist Signature POC Glucose 198 65 - 199 [facility] mg/dL [facility] Comment: Supplemental ranges: <140 mg/dL before meals <180 mg/dL all other times of the day Specimen Anatomical Collection Method Collection Time Receive d Time (Source) Location / / Volume Laterality Blood 12/11/2021 7:34 AM 2 7:34 EDT AM EDT Iker Cuevas MD POINT OF CARE TEST ORDERABLE S Performing Organization Address City/State/[place] [address] (ABNORMAL) POCT Glucose (12/11/2021 5:07 AM EDT) P athologist Signature POC Glucose 208 (H) 65 - 199 [facility] mg/dL [facility]ORY Comment: Supplemental ranges: <140 mg/dL before meals <180 mg/dL all other times of the day Specimen Anatomical Collection Method Collection Time Receive d Time (Source) Location / / Volume Laterality Blood 12/11/2021 5:07 AM 2 5:07 EDT AM EDT Iekr Cuevas MD POINT OF CARE TEST ORDERABLE S Performing Organization Address City/State/[place] [address] (ABNORMAL) Differential, Automated (12/11/2021 4:28 AM EDT) Patholo gist Method Time Signature Neutrophils % 79.6 % [facility] LABORATORY Neutr Abs (ANC) 7.01 (H) 1.70 - [facility] 6.10 [facility] x10(3)/[facility] L LABORATORY Lymphocytes % 9.1 % [facility] LABORATORY Lymphocytes Abs 0.8 (L) 0.9 - 3.2 [facility] x10(3)/[facility] LABORATORY Monocytes % 9.2 % [facility] LABORATORY Monocyte Abs 0.8 0.3 - 0.9 [facility] x10(3)/[facility] LABORATORY Eosinophils % 1.3 % [facility] LABORATORY Eosinophils Abs 0.1 0.0 - 0.4 [facility] x10(3)/[facility] LABORATORY Basophils % 0.5 % [facility] LABORATORY Basophils Abs 0.0 0.0 - 0.1 [facility] x10(3)/[facility] LABORATORY Immature Gran % 0.30 [...] x10(3)/[facility] LABORATORY Specimen Anatomical Collection Method Collection Time Receive d Time (Source) Location / / Volume Laterality Blood 12/11/2021 4:28 AM 4:37 EDT AM EDT Resulting Agency Comment Spec In Lab Bijan Sun MD HEMATOLOGY ORDERABLES Performing Organization Address City/State/ZIP Code Phon e Number [place] [id number] (ABNORMAL) Hemogram (12/11/2021 4:28 AM EDT) Analysis Performed At Patho logist Time Signature WBC 8.8 4.0 - 9.5 [facility] x10(3)/[facility] LABORATORY RBC 4.15 (L) 4.58 - [facility] 5.54 [facility] x10(6)/[facility] LABORATORY Hemoglobin 11.9 (L) 13.7 - [facility] 16.[facility] g/dL [facility]ORY Hematocrit 36.9 (L) 40.5 - [facility] RYAN 48.5 % [facility] LABORATORY MCV 88.9 82.9 - [facility] RYAN 93.[address] [facility] LABORATORY MCH 28.7 27.5 - [facility] 32.1 pg [facility]AT[facility] MCHC 32.2 32.0 - [facility] 35.7 g/dL [facility] Platelets 211 145 - 357 [facility] x10(3)/[facility] LABORATORY RDWSD 48.3 (H) 36.0 - [facility] RYAN 45.[address] [facility] LABORATORY RDWCV 14.8 (H) 11.4 - [facility] RYAN 13.8 % [facility] LABORATORY MPV 9.6 7.6 - 12.9 [facility] LABORATORY nRBC % Auto 0.0 % [facility] LABORATORY nRBC Abs Auto 0.000 0.000 - [facility] 0.000 [facility] x10(3)/[facility] LABORATORY Specimen Anatomical Collection Method Collection Time Receive d Time (Source) Location / / Volume Laterality Blood 12/11/2021 4:28 AM 2 4:37 EDT AM EDT Resulting Agency Comment Spec In Lab Bijan Sun MD HEMATOLOGY ORDERABLES Performing Organization Address City/[facility]/ZIP [facility] [place] [address] (ABNORMAL) Prothrombin Time (12/11/2021 4:28 AM EDT) P athologist Signature PT 17.7 (H) 9.4 - 12.5 [facility] LABORATORY INR 1.6 [facility] [...] MD HEMATOLOGY ORDERABLES Performing Organization Address City/[facility]/[place] [address] (ABNORMAL) BMP w/fasting Glucose (12/11/2021 4:28 AM EDT) P athologist Signature Glucose 207 (H) 65 - 99 [facility] Fasting mg/dL [facility] Comment: ?Fasting* Glucose Interpretive C riteria [...] Diabetes Mellitus, Position Statement from the [place] [employer]. ??Diabete s Care, Volume 33, [...] City/[facility]/[place] [address] Magnesium (12/11/2021 4:28 AM EDT) athologist Signature Magnesium 1.04 0.69 - 1.07 [facility] mmol/L [facility] LABORATORY Specimen Anatomical Collection Method Collection Time Receive d Time (Source) Location / / Volume Laterality Blood 12/11/2021 4:28 AM 2 4:37 EDT AM EDT Resulting Agency Comment Spec In Lab Iker Cuevas MD CHEMISTRY ORDERABLES Performing Organization Address City/[facility]/ZIP Code Phon e Number [address] POCT Glucose (12/11/2021 3:58 AM EDT) athologist Signature POC Glucose 189 65 - 199 [facility] mg/dL [facility] Comment: Supplemental ranges: <140 mg/dL before meals <180 mg/dL all other times of the day Specimen Anatomical Collection Method Collection Time Receive d Time (Source) Location / / Volume Laterality Blood 12/11/2021 3:58 AM 2 3:58 EDT AM EDT Iker Cuevas MD POINT OF CARE TEST ORDERABLE S Performing Organization Address City/[facility]/[place] [address] (ABNORMAL) POCT Glucose (12/10/2021 11:45 PM EDT) athologist Signature POC Glucose 205 (H) 65 - 199 [facility] mg/dL [facility] Comment: Supplemental ranges: <140 mg/dL before meals <180 mg/dL all other times of the day Specimen Anatomical Collection Method Collection Time Receive d Time (Source) Location / / Volume Laterality Blood 12/10/2021 11:45 12/10/2021 PM EDT 11:45 PM EDT Iker Cuevas MD POINT OF CARE TEST ORDERABLE S Performing Organization Address City/[facility]/[place] [address] (ABNORMAL) POCT Glucose (12/10/2021 7:54 PM EDT) athologist Signature POC Glucose 225 (H) 65 - 199 [facility] mg/dL [facility] Comment: Supplemental ranges: <140 mg/dL before meals <180 mg/dL all other times of the day Specimen Anatomical Collection Method Collection Time Receive d Time (Source) Location / / Volume Laterality Blood 12/10/2021 7:54 PM 2 7:54 EDT PM EDT Iker Cuevas MD POINT OF CARE TEST ORDERABLE S Performing Organization Address City/[facility]/[place] [address] Potassium (12/10/2021 7:46 PM EDT) athologist [facility] Potassium 4.2 3.5 - 5.0 [facility] mmol/L [facility] Comment: Please note: ??Patients with WBC [...] ORDERABLES Performing Organization Address City/[facility]/ZIP [facility] [place] [address] (ABNORMAL) Basic Metabolic Panel (non-fasting) (12/10/2021 6:12 PM EDT) athologist Signature Glucose Lvl 246 (H) 65 - 199 [facility] mg/dL [facility] LABORATORY [...] Address City/State/ZIP Code Phon e Number [address] POCT Glucose (12/10/2021 4:59 PM EDT) P athologist Signature POC Glucose 158 65 - 199 [facility] mg/dL [facility] Comment: Supplemental ranges: <140 mg/dL before meals <180 mg/dL all other times of the day Specimen Anatomical Collection Method Collection Time Receive d Time (Source) Location / / Volume Laterality Blood 12/10/2021 4:59 PM 2 4:59 EDT PM EDT Iker Cuevas MD POINT OF CARE TEST ORDERABLE S Performing Organization Address City/State/[place] [address] (ABNORMAL) POCT Glucose (12/10/2021 12:43 PM EDT) P athologist Signature POC Glucose 241 (H) 65 - 199 [facility] mg/dL [facility] Comment: Supplemental ranges: <140 mg/dL before meals <180 mg/dL all other times of the day Specimen Anatomical Collection Method Collection Time Receive d Time (Source) Location / / Volume Laterality Blood 12/10/2021 12:43 12/10/2021 PM EDT 12:43 PM EDT Iker Cuevas MD POINT OF CARE TEST ORDERABLE S Performing Organization Address City/State/[place] [address] EKG 12 Lead (12/10/2021 11:17 AM EDT) Component Value Ref Range Test Analysis Performed Pathologis t Method Time At Signature Ventricular rate 62 BPM MUSE SYSTEM Atrial Rate 62 BPM MUSE SYSTEM P-R Interval 142 ms MUSE SYSTEM QRS Duration 100 ms MUSE SYSTEM Q-T Interval 434 ms MUSE SYSTEM QTC Calculated 440 ms MUSE SYSTEM (Bezet) Calculated P [place] 34 degrees MUSE SYSTEM Calculated R [place] -39 degrees MUSE SYSTEM Calculated T [place] 92 degrees MUSE SYSTEM INTERPRETATION Normal sinus rhythm MUSE SYSTEM Left axis deviation Minimal voltage criteria for LVH, may be normal variant ( [place] product ) Cannot rule out Inferior infarct [...] Laterality Volume Narrative 12/10/2021 12:04 PM EDT ?[facility] ? Cardiac Cathete rization/Intervention Report ? Patient Name: Don FatimaMadiha ? Procedure Date: 12/10/2021 ? A #: [id number] ? Primary Physician: Nobles, Vitaliy P ? Case #: [id number] ? File Name: [id number] ? Catheterization Order Number: [id number] ? [facility] ? Final Report [place], [place] ? Patient Name: ? Don E. Stewa rt ? ID#: ?[id number] ? : ?1945 ? Procedure Date: ? [...] Urgent. The indication for ?the labor relations consultant visit is ACS great er than 24 [...] ?3.75 guiding catheter and a 3.5 Fr [place] Lummi 20 Mhz using Manual ?pullback. ??Imaging was success ful. ??Image quality was good. ??The ostial ?LCX showed moderate diffuse ath erosclerotic plaque with scattered three ?quadrant calcification. ??Measu rements were performed after pre- dilation. ?Post Intervention: The stent turong s well expanded and apposed. ?Intravascular Ultrasound was pe rformed in the distal LM using a 7 Fr EBU ?3.75 guiding catheter and a 3.5 Fr [place] Lummi 20 Mhz using Manual ?pullback. ??Imaging was [...] require ?modification of this regimen. C [facility] Interventional Cardiology for ?questions. ?The 1 [...] Procedure Note Vitaliy Nobles MD - 01/14/2022 [facility] Cardiac Catheterization/Intervention Re port Patient Name: Don Fatima Procedure Date: 12/10/2021 A #: [id number] Primary Physician: Vitaliy Nobles Case #: [id number] File Name: [id number] Catheterization Order Number: [id number] [facility] Final Report [place], [place] Patient Name: Don Fatima ID#: [...] Urgent. The indication for the labor relations consultant visit is ACS greater than 24 hrs [...] and a 3.5 Fr [place] Lummi 20 Mhz using Manual pullback. Imaging was [...] and a 3.5 Fr [place] Lummi 20 Mhz using Manual pullback. Imaging was [...] modification of this regimen. Consult D [facility] Interventional Cardiology for questions. The [...] 262 (H) 65 - 199 [facility] mg/dL [facility] Comment: Supplemental ranges: <140 mg/dL before meals <180 mg/dL all other times of the day Specimen Anatomical Collection Method Collection Time Receive d Time (Source) Location / / Volume Laterality Blood 12/10/2021 10:30 12/10/2021 AM EDT 10:30 AM EDT Iker Cuevas MD POINT OF CARE TEST ORDERABLE S Performing Organization Address City/State/[place] [address] (ABNORMAL) POCT Glucose (12/10/2021 9:48 AM EDT) athologist Signature POC Glucose 279 (H) 65 - 199 [facility] mg/dL [facility] Comment: Supplemental ranges: <140 mg/dL before meals <180 mg/dL all other times of the day Specimen Anatomical Collection Method Collection Time Receive d Time (Source) Location / / Volume Laterality Blood 12/10/2021 9:48 AM 2 9:48 EDT AM EDT Iker Cuevas MD POINT OF CARE TEST ORDERABLE S Performing Organization Address City/[facility]/[place] [address] (ABNORMAL) POCT Glucose (12/10/2021 9:07 AM EDT) P athologist Signature POC Glucose 268 (H) 65 - 199 [facility] mg/dL [facility] Comment: Supplemental ranges: <140 mg/dL before meals <180 mg/dL all other times of the day Specimen Anatomical Collection Method Collection Time Receive d Time (Source) Location / / Volume Laterality Blood 12/10/2021 9:07 AM 2 9:07 EDT AM EDT Iker Cuevas MD POINT OF CARE TEST ORDERABLE S Performing Organization Address City/State/[place] [address] (ABNORMAL) Point of Care Blood Gas Historical (12/10/2021 9:04 AM EDT) [facility] Method Time Signature POC pH 7.40 7.35 - [facility] 7.45 [facility] LABORATORY POC PCO2 40 35 - 45 [facility] LABORATORY POC PO2 63 (L) 85 - 104 [facility] LABORATORY POC Base Excess 0.0 -3.0 - 3.0 [facility] K mmol/L [facility] LABORAT[facility] POC HCO3 24.8 20.0 - [facility] 26.0 [facility] POC Sodium 143 135 - 145 [facility] mmol/L [facility] POC Potassium 3.7 3.5 - 5.0 [facility] mmol/L [facility]ORAT[facility] POC Ionized Ca 1.07 (L) 1.15 - [facility] 1.33 [facility] POC Hematocrit 30.0 (L) 40.0 - [facility] 51.0 % [facility] POC Calc Hgb 10.2 (L) 13.7 - [facility] 17.5 g/dL [facility] Comment: The calculation of hemoglobin f rom hematocrit assumes a normal MCHC. POC Bgas Loc CC LAB [facility] LABORATORY Specimen Anatomical Collection Method Collection Time Receive d Time (Source) Location / / Volume Laterality Blood 12/10/2021 9:04 AM 2 EDT 12:00 PM EDT Ifeanyi Truong MD CHEMISTRY ORDERABLES Performing Organization Address City/State/[place] [address] (ABNORMAL) POCT Glucose (12/10/2021 7:19 AM EDT) P athologist Signature POC Glucose 274 (H) 65 - 199 [facility] mg/dL [facility] Comment: Supplemental ranges: <140 mg/dL before meals <180 mg/dL all other times of the day Specimen Anatomical Collection Method Collection Time Receive d Time (Source) Location / / Volume Laterality Blood 12/10/2021 7:19 AM 2 7:19 EDT AM EDT Iker Cuevas MD POINT OF CARE TEST ORDERABLE S Performing Organization Address City/State/[place] [address] Heparin (unfractionated) Level (12/10/2021 4:25 AM EDT) P athologist Signature Heparin UFH 0.69 IU/mL [facility] LABORATORY Comment: Heparin (anti-Xa) levels [...] Organization Address City/State/ZIP Code Phon e Number [place] [id number] Drive (ABNORMAL) Differential, Automated (12/10/2021 4:25 AM EDT) Patholo gist Method Time Signature Neutrophils % 79.8 % [facility] LABORATORY Neutr Abs (ANC) 7.47 (H) 1.70 - [facility] 6.10 [facility] x10(3)/[facility] L LABORATORY Lymphocytes % 10.6 % [facility] LABORATORY Lymphocytes Abs 1.0 0.9 - 3.2 [facility] x10(3)/[facility] LABORATORY Monocytes % 8.4 % [facility] LABORATORY Monocyte Abs 0.8 0.3 - 0.9 [facility] x10(3)/[facility] LABORATORY Eosinophils % 0.6 % [facility] LABORATORY Eosinophils Abs 0.1 0.0 - 0.4 [facility] x10(3)/[facility] LABORATORY Basophils % 0.2 % [facility] LABORATORY Basophils Abs 0.0 0.0 - 0.1 [facility] x10(3)/[facility] LABORATORY Immature Gran % 0.40 [...] Melisa Gran Abs 0.04 0.00 - 0.04 x10(3)/[facility] LABORATORY Specimen Anatomical Collection Method Collection Time Receive d Time (Source) Location / / Volume Laterality Blood 12/10/2021 4:25 AM 4:34 EDT AM EDT Resulting Agency Comment Spec In Lab Morgan BROWN HEMATOLOGY ORDERABLES Performing Organization Address City/State/[place] [address] (ABNORMAL) Hemogram (12/10/2021 4:25 AM EDT) Analysis Performed At Patho logist Time Signature WBC 9.4 4.0 - 9.5 [facility] x10(3)/[facility] LABORATORY RBC 3.81 (L) 4.58 - [facility] 5.54 [facility] x10(6)/[facility] LABORATORY Hemoglobin 11.1 (L) 13.7 - [facility] 16.5 g/dL [facility] LABORATORY Hematocrit 34.0 (L) 40.5 - [facility] 48.5 % [facility]ATORY MCV 89.2 82.9 - [facility] 93.[address] [facility] LABORATORY MCH 29.1 27.5 - [facility] 32.1 pg [facility] LABORATORY MCHC 32.6 32.0 - [facility] 35.7 g/dL [facility] LABORATORY Platelets 183 145 - 357 [facility] x10(3)/[facility] LABORATORY RDWSD 49.9 (H) 36.0 - [facility] RYAN 45.[address] [facility] LABORATORY RDWCV 15.2 (H) 11.4 - [facility] 13.8 % [facility] LABORATORY MPV 9.8 7.6 - 12.9 [facility] LABORATORY nRBC % Auto 0.0 % [facility] LABORATORY nRBC Abs Auto 0.000 0.000 - [facility] DAVIS 0.000 [facility] x10(3)/[facility] LABORATORY Specimen Anatomical Collection Method Collection Time Receive d Time (Source) Location / / Volume Laterality Blood 12/10/2021 4:25 AM 2 4:34 EDT AM EDT Resulting Agency Comment Spec In Lab Morgan BROWN HEMATOLOGY ORDERABLES Performing Organization Address City/[facility]/ZIP Code Phon e Number [address] (ABNORMAL) Prothrombin Time (12/10/2021 4:25 AM EDT) P athologist Signature PT 20.0 (H) 9.4 - 12.5 [facility] LABORATORY INR 1.7 [facility] [...] MD HEMATOLOGY ORDERABLES Performing Organization Address City/[facility]/[place] [address] (ABNORMAL) BMP w/fasting Glucose (12/10/2021 4:25 AM EDT) P athologist Signature Glucose 210 (H) 65 - 99 [facility] Fasting mg/dL [facility] LABORATORY Comment: ?Fasting* Glucose Interpretive C riteria [...] Diabetes Mellitus, Position Statement from the [place] [employer]. ??Diabete s Care, Volume 33, [...] Organization Address City/State/[place] [address] Magnesium (12/10/2021 4:25 AM EDT) athologist Signature Magnesium 0.95 0.69 - 1.07 [facility] mmol/L [facility] LABORATORY Specimen Anatomical Collection Method Collection Time Receive d Time (Source) Location / / Volume Laterality Blood 12/10/2021 4:25 AM 2 4:34 EDT AM EDT Resulting Agency Comment Spec In Lab Iker Cuevas MD CHEMISTRY ORDERABLES Performing Organization Address City/[facility]/[place] [address] POCT Glucose (12/10/2021 1:58 AM EDT) athologist Signature POC Glucose 164 65 - 199 [facility] mg/dL [facility] LABORATORY Comment: Supplemental ranges: <140 mg/dL before meals <180 mg/dL all other times of the day Specimen Anatomical Collection Method Collection Time Receive d Time (Source) Location / / Volume Laterality Blood 12/10/2021 1:58 AM 2 1:58 EDT AM EDT Iker Cuevas MD POINT OF CARE TEST ORDERABLE S Performing Organization Address City/[facility]/ZIP Code Phon e Number [address] (ABNORMAL) POCT Glucose (12/09/2021 9:02 PM EDT) athologist Signature POC Glucose 313 (H) 65 - 199 [facility] mg/dL [facility] LABORATORY Comment: Supplemental ranges: <140 mg/dL before meals <180 mg/dL all other times of the day Specimen Anatomical Collection Method Collection Time Receive d Time (Source) Location / / Volume Laterality Blood 12/09/2021 9:02 PM 2 9:02 EDT PM EDT Iker Cuevas MD POINT OF CARE TEST ORDERABLE S Performing Organization Address City/[facility]/[place] [address] Heparin (unfractionated) Level (12/09/2021 7:30 PM EDT) athologist Signature Heparin UFH 0.48 IU/mL [facility] LABORATORY Comment: Heparin (anti-Xa) levels [...] City/State/[place] [address] (ABNORMAL) Basic Metabolic Panel (non-fasting) (12/09/2021 7:30 PM EDT) athologist Signature Glucose Lvl 372 (H) 65 - 199 [facility] mg/dL [facility] LAB[facility] Comment: Diabetes: [...] City/State/[place] [address] (ABNORMAL) POCT Glucose (12/09/2021 6:34 PM EDT) athologist Signature POC Glucose 408 (H) 65 - 199 [facility] mg/dL [facility] LABORATORY Comment: Supplemental ranges: <140 mg/dL before meals <180 mg/dL all other times of the day Specimen Anatomical Collection Method Collection Time Receive d Time (Source) Location / / Volume Laterality Blood 12/09/2021 6:34 PM 2 6:34 EDT PM EDT Iker Cuevas MD POINT OF CARE TEST ORDERABLE S Performing Organization Address City/State/[place] [address] (ABNORMAL) POCT Glucose (12/09/2021 6:32 PM EDT) athologist Signature POC Glucose 356 (H) 65 - 199 [facility] mg/dL [facility] Comment: Supplemental ranges: <140 mg/dL before meals <180 mg/dL all other times of the day Specimen Anatomical Collection Method Collection Time Receive d Time (Source) Location / / Volume Laterality Blood 12/09/2021 6:32 PM 2 6:32 EDT PM EDT Iker Cuevas MD POINT OF CARE TEST ORDERABLE S Performing Organization Address City/[facility]/[place] [address] (ABNORMAL) POCT Glucose (12/09/2021 4:19 PM EDT) athologist Signature POC Glucose 347 (H) 65 - 199 [facility] mg/dL [facility] LAB[facility] Comment: Supplemental ranges: <140 mg/dL before meals <180 mg/dL all other times of the day Specimen Anatomical Collection Method Collection Time Receive d Time (Source) Location / / Volume Laterality Blood 12/09/2021 4:19 PM 2 4:19 EDT PM EDT Iker Cuevas MD POINT OF CARE TEST ORDERABLE S Performing Organization Address City/State/[place] [address] Heparin (unfractionated) Level (12/09/2021 1:29 PM EDT) athologist Signature Heparin UFH 0.42 IU/mL [facility] LABORATORY Comment: Heparin (anti-Xa) levels [...] Organization Address City/State/ZIP Code Phon e Number [place] [address] (ABNORMAL) POCT Glucose (12/09/2021 12:02 PM EDT) athologist Signature POC Glucose 235 (H) 65 - 199 [facility] mg[facility]dL [facility] Comment: Supplemental ranges: <140 mg/dL before meals <180 mg/dL all other times of the day Specimen Anatomical Collection Method Collection Time Receive d Time (Source) Location / / Volume Laterality Blood 12/09/2021 12:02 12/09/2021 PM EDT 12:02 PM EDT Iker Cuevas MD POINT OF CARE TEST ORDERABLE S Performing Organization Address City/State/[place] [address] (ABNORMAL) POCT Glucose (12/09/2021 9:44 AM EDT) athologist Signature POC Glucose 214 (H) 65 - 199 [place] mg/dL [facility] Comment: Supplemental ranges: <140 mg/dL before meals <180 mg/dL all other times of the day Specimen Anatomical Collection Method Collection Time Receive d Time (Source) Location / / Volume Laterality Blood 12/09/2021 9:44 AM 2 9:44 EDT AM EDT Iker Cuevas MD POINT OF CARE TEST ORDERABLE S Performing Organization Address City/[facility]/[place] [address] EKG 12 Lead (12/09/2021 7:57 AM EDT) Component Value Ref Range Test Analysis Performed Pathologis t Method Time At Signature Ventricular rate 101 BPM MUSE SYSTEM Atrial Rate 101 BPM MUSE SYSTEM P-R Interval 150 ms MUSE SYSTEM QRS Duration 112 ms MUSE SYSTEM Q-T Interval 364 ms MUSE SYSTEM QTC Calculated 471 ms MUSE SYSTEM (Bezet) Calculated P [place] 59 degrees MUSE SYSTEM Calculated R [place] -42 degrees MUSE SYSTEM Calculated T [place] 102 degrees MUSE SYSTEM INTERPRETATION Sinus tachycardia Occasional Premature ventricular com plexes MUSE SYSTEM Left axis deviation 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) Abnormal ECG When compared with ECG of 08-DEC-2021 16:40, Premature ventricular complexes are now Present Confirmed by MD Fernandez Danette ([id number]) on 12/10/2021 4:55:06 PM Specimen Anatomical Collection Method Collection Time Receive d Time (Source) Location / / Volume Laterality 12/09/2021 7:57 AM 2 4:55 EDT PM EDT Iker Cuevas MD ECG ORDERABLES Performing Organization Address City/State/ZIP Code Phon e Number MUSE SYSTEM (ABNORMAL) POCT Glucose (12/09/2021 7:28 AM EDT) P athologist Signature POC Glucose 263 (H) 65 - 199 [facility]dL [facility] Comment: Supplemental ranges: <140 mg/dL before meals <180 mg/dL all other times of the day Specimen Anatomical Collection Method Collection Time Receive d Time (Source) Location / / Volume Laterality Blood 12/09/2021 7:28 AM 2 7:28 EDT AM EDT Iker Cuevas MD POINT OF CARE TEST ORDERABLE S Performing Organization Address City/State/ZIP Code Phon e Number [place] [id number] (ABNORMAL) Hemoglobin A1c (12/09/2021 [...] Mellitus, Diabetes Care 2013; 36: Suppl. 1, G17-13 Est Avg Gluc See note mg/dL [place] [...] into estimated average glucose values. ??Diabetes Care 2008:31(8):0422-2173. Specimen Anatomical Collection Method Collection Time Receive d Time (Source) Location / / Volume Laterality Blood Venous Draw / 12/09/2021 6:18 AM 12/10/19 22 Unknown EDT 12:24 PM EDT Resulting Agency Comment Spec In Lab Migdalia BROWN CHEMISTRY ORDERABLES Performing Organization Address [facility] [place] [address] (ABNORMAL) Prothrombin Time (12/09/2021 6:18 AM EDT) athologist Signature PT 26.6 (H) 9.4 - 12.5 [facility] LABORATORY INR 2.3 [facility] [...] Migdalia BROWN HEMATOLOGY ORDERABLES Performing Organization Address [facility] [place] [address] Heparin (unfractionated) Level (12/09/2021 6:18 AM EDT) P athologist Signature Heparin UFH 0.24 IU/mL [facility] LABORATORY Comment: Heparin (anti-Xa) levels [...] City/State/[place] [address] (ABNORMAL) Differential, Automated (12/09/2021 6:18 AM EDT) [facility] Method Time Signature Neutrophils % 91.5 % [facility] LABORATORY Neutr Abs (ANC) 15.78 (H) 1.70 - [facility] 6.10 [facility] x10(3)/[facility] LABORATORY Lymphocytes % 2.9 % [facility] LABORATORY Lymphocytes Abs 0.5 (L) 0.9 - 3.2 [facility] x10(3)/[facility] LABORATORY Monocytes % 4.9 % [facility] LABORATORY Monocyte Abs 0.8 0.3 - 0.9 [facility] x10(3)/[facility] LABORATORY Eosinophils % 0.0 % [facility] LABORATORY Eosinophils Abs 0.0 0.0 - 0.4 [facility] x10(3)/[facility] LABORATORY Basophils % 0.2 % [facility] LABORATORY Basophils Abs 0.0 0.0 - 0.1 [facility] x10(3)/[facility] LABORATORY Immature Gran % 0.50 [...] City/State/[place] [address] (ABNORMAL) Hemogram (12/09/2021 6:18 AM EDT) Analysis Performed At Patho logist Time Signature WBC 17.2 (H) 4.0 - 9.5 [facility] x10(3)/[facility] LABORATORY RBC 4.32 (L) 4.58 - [facility] 5.54 [facility] x10(6)/[facility] LABORATORY Hemoglobin 12.6 (L) 13.7 - [facility] 16.5 g/dL [facility] Hematocrit 38.9 (L) 40.5 - [facility] 48.5 % [facility] MCV 90.0 82.9 - [facility] [facility] LABORATORY MCH 29.2 27.5 - [facility] 32.1 pg [facility] MCHC 32.4 32.0 - [facility] 35.7 g/dL [facility] Platelets 193 145 - 357 [facility] x10(3)/[facility] LABORATORY RDWSD 50.4 (H) 36.0 - [facility] RYAN 45.[address] [facility] LABORATORY RDWCV 15.2 (H) 11.4 - [facility] 13.8 % [facility] MPV 9.5 7.6 - 12.9 [facility] LABORATORY nRBC % Auto 0.0 % [facility] LABORATORY nRBC Abs Auto 0.000 0.000 - [facility] 0.000 [facility] x10(3)/[facility] LABORATORY Specimen Anatomical Collection Method Collection Time Receive d Time (Source) Location / / Volume Laterality Blood 12/09/2021 6:18 AM 6:33 EDT AM EDT Resulting Agency Comment Spec In Lab Morgan BROWN HEMATOLOGY ORDERABLES Performing Organization Address City/State/[place] [address] Lipid Panel (Reflex Direct LDL) (12/09/2021 6:18 AM EDT) athologist Signature Chol, Total 105 mg/dL [facility] LABORATORY Comment: Lower Risk: <200 mg/dL Average Risk: 200-239 mg/dL Higher Risk: >sq=199 mg/dL Triglycerides 133 mg/dL [facility] LABORATORY Comment: Average Risk/Lower Risk: <150 mg/dL Borderline High Risk: 150-199 mg/dL High Risk: 200-499 mg/dL Very High Risk: >kp=277 mg/dL HDL 42 mg/dL [facility] LABORATORY Comment: Males: ?? Higher Risk: <40 mg/dL Females: ?? Higher Risk: <50 mg/dL LDL Cholesterol 36 mg/dL [facility] LABORATORY Comment: Lowest Risk: <100 mg/dL Lower Risk: 100-129 mg/dL Borderline High Risk: 130-159 mg/dL High Risk: 160-189 mg/dL Very High Risk: >of=298 mg/dL Chol/HDL Ratio 2.5 ratio [facility] LABORATORY Lipid Interpretation See Note [facility] LABORATORY Comment: Lipid management should be guided by a p atient? s ASCVD risk, goals and preferences. ACC/AHA Guidelines recommend high intens ity statin if clinical ASCVD or LDL greater than or equal to 190 mg/dL. http://tinyurl.com/NPL-GMC-Gcipnwxyy Adults aged 40-75 with LDL 70-189 mg/dL should have their 10 year ASCVD risk estimated with the ACC/AHA ASCVD risk es timator http://tools.acc.org/DOLTB-Zcak-Wozfxjem r/ Statin should be discussed if risk [...] City/[facility]/ZIP Code Phon e Number [address] TSH (12/09/2021 6:18 AM EDT) P athologist Signature TSH 1.60 0.27 - 4.20 [facility] mcIU/mL [facility] Comment: Reference Interval (mcIU/mL): Females: ??First Trimester: 0.23-3.88 ??Second Trimester: 0.22-3.90 ??Third Trimester: 0.44-4.66 Specimen Anatomical Collection Method Collection Time Receive d Time (Source) Location / / Volume Laterality Blood 12/09/2021 6:18 AM 2 6:33 EDT AM EDT Resulting Agency Comment Spec In Lab Iker Cuevas MD CHEMISTRY ORDERABLES Performing Organization Address City/[facility]/[place] [address] Hepatic Function Panel (12/09/2021 6:18 AM EDT) P athologist Signature Total Protein 7.3 6.1 - 8.0 [place] g/dL [facility] Albumin 4.2 3.2 - 5.2 [place] g/dL [facility] AST 25 0 - 39 [place] unit/L [facility] ALT 15 0 - 55 [place] unit/L [facility] Alk Phos 75 40 - 130 [place] unit/L [facility] Total 1.1 0.2 - 1.3 [facility] Bilirubin mg/dL [facility] Bili, Direct 0.2 0.0 - 0.3 [facility] mg/dL [facility] Specimen Anatomical Collection Method Collection Time Receive d Time (Source) Location / / Volume Laterality Blood 12/09/2021 6:18 AM 6:33 EDT AM EDT Resulting Agency Comment Spec In Lab Iker Cuevas MD CHEMISTRY ORDERABLES Performing Organization Address City/State/[place] [address] (ABNORMAL) BMP w/fasting Glucose (12/09/2021 6:18 AM EDT) athologist Signature Glucose 235 (H) 65 - 99 [facility] Fasting mg/dL [facility] Comment: ?Fasting* Glucose Interpretive C riteria [...] Diabetes Mellitus, Position Statement from the [place] [employer]. ??Diabete s Care, Volume 33, [...] City/[facility]/ZIP Code Phon e Number [address] Magnesium (12/09/2021 6:18 AM EDT) P athologist Signature Magnesium 0.81 0.69 - 1.07 [facility] mmol/L [facility] Specimen Anatomical Collection Method Collection Time Receive d Time (Source) Location / / Volume Laterality Blood 12/09/2021 6:18 AM 2 6:33 EDT AM EDT Resulting Agency Comment Spec In Lab Iker Cuevas MD CHEMISTRY ORDERABLES Performing Organization Address City/[facility]/ZIP Code Phon e Number [address] (ABNORMAL) Troponin (12/09/2021 6:18 AM EDT) P athologist Signature Troponin-T 1.13 (H) 0.00 - [place] 0.00 ng/mL [facility] Comment: The 99th percentile for Troponin [...] additional sample may be indicated. Reference: Third [place] Definition of Myocardial Infarction. Journal of the [place] [employer] 2012;60:1581-98 Specimen Anatomical Collection Method Collection Time Receive d Time (Source) Location / / Volume Laterality Blood 12/09/2021 6:18 AM 6:33 EDT AM EDT Resulting Agency Comment Spec In Lab Iker Cuevas MD CHEMISTRY ORDERABLES Performing Organization Address City/State/ZIP Code [place] [address] XR Chest One View [...] have questions please contact the health healthcare consultant that requested your imaging first. ? Electronically signed by: Yoselin White, [facility] ([phone]), at 12/09/2021 5:35 AM Narrative 12/09/2021 5:35 [...] have questions please contact the health healthcare consultant that requested your imaging first. Electronically signed by: Yoselin White, [facility] ([phone]), at 12/09/2021 5:35 AM Amber Sanches MD IMG DX ORDERABLES (ABNORMAL) BLOOD GAS 2 ARTERIAL (12/09/2021 5:14 AM EDT) Analysis Performed At Patho logist Time Signature pH Art 7.43 7.35 - [facility] 7.45 [facility] pCO2 Art 36 35 - 45 [facility] mmHg [facility] pO2 Art 67 (L) 85 - 104 [facility] LABORATORY HCO3 Art 23.4 20.0 - [facility] 26.0 [facility] mmol/[facility] LABORATORY BE Art -0.9 -3.0 - 3.0 [facility] mmol/L [facility] Hgb Blood Gas 13.2 (L) 13.7 - [facility] 16.5 g/dL [facility] O2HB Art 91.3 (L) 94.0 - [facility] 97.0 % [facility] COHB Art 0.4 % [facility] CARE [facility]PITAL LABORATORY FIO2 Art 35 % [facility] LABORATORY Flow Art 8.0 LPM [facility] LABORATORY PF Ratio Art 191 [facility] LABORATORY Specimen Anatomical Collection Method Collection Time Receive d Time (Source) Location / / Volume Laterality Blood 12/09/2021 5:14 AM 2 5:14 EDT AM EDT Iker Cuevas MD CHEMISTRY ORDERABLES Performing Organization Address City/[facility] [place] [address] POCT Glucose (12/09/2021 4:46 AM EDT) P athologist Signature POC Glucose 198 65 - 199 [facility] mg/dL [facility] Comment: Supplemental ranges: <140 mg/dL before meals <180 mg/dL all other times of the day Specimen Anatomical Collection Method Collection Time Receive d Time (Source) Location / / Volume Laterality Blood 12/09/2021 4:46 AM 2 4:46 EDT AM EDT Iker Cuevas MD POINT OF CARE TEST ORDERABLE S Performing Organization Address City/[facility]/[place] [address] (ABNORMAL) POCT Glucose (12/09/2021 3:01 AM EDT) P athologist Signature POC Glucose 225 (H) 65 - 199 [facility] mg/dL [facility] Comment: Supplemental ranges: <140 mg/dL before meals <180 mg/dL all other times of the day Specimen Anatomical Collection Method Collection Time Receive d Time (Source) Location / / Volume Laterality Blood 12/09/2021 3:01 AM 2 3:01 EDT AM EDT Iker Cuevas MD POINT OF CARE TEST ORDERABLE S Performing Organization Address City/State/[place] [address] (ABNORMAL) POCT Glucose (12/08/2021 10:55 PM EDT) athologist Signature POC Glucose 327 (H) 65 - 199 [facility] mg/dL [facility] Comment: Supplemental ranges: <140 mg/dL before meals <180 mg/dL all other times of the day Specimen Anatomical Collection Method Collection Time Receive d Time (Source) Location / / Volume Laterality Blood 12/08/2021 10:55 12/08/2021 PM EDT 10:55 PM EDT Iker Cuevas MD POINT OF CARE TEST ORDERABLE S Performing Organization Address City/[facility]/[place] [address] Heparin (unfractionated) Level (12/08/2021 10:03 PM EDT) athologist Signature Heparin UFH 0.18 IU/mL [facility] LABORATORY Comment: Heparin (anti-Xa) levels [...] Organization Address City/State/[place] [address] (ABNORMAL) Troponin (12/08/2021 10:03 PM EDT) athologist Signature Troponin-T 0.92 (H) 0.00 - [place] 0.00 ng/mL [facility] Comment: The 99th percentile for Troponin [...] additional sample may be indicated. Reference: Third [place] Definition of Myocardial Infarction. Journal of the [place] College [employer] 2012;60:1581-98 Specimen Anatomical Collection Method Collection Time Receive d Time (Source) Location / / Volume Laterality Blood 12/08/2021 10:03 12/08/2021 PM EDT 10:31 PM EDT Resulting Agency Comment Spec In Lab Iker Cuevas MD CHEMISTRY ORDERABLES Performing Organization Address City/State/ZIP Code Phon e Number [place] [address] (ABNORMAL) POCT Glucose (12/08/2021 8:22 PM EDT) athologist Signature POC Glucose 429 (H) 65 - 199 [place] mg/dL [facility] Comment: Supplemental ranges: <140 mg/dL before meals <180 mg/dL all other times of the day Specimen Anatomical Collection Method Collection Time Receive d Time (Source) Location / / Volume Laterality Blood 12/08/2021 8:22 PM 2 8:22 EDT PM EDT Iker Cuevas MD POINT OF CARE TEST ORDERABLE S Performing Organization Address City/[facility]/ZIP Code Phon e Number [address] (ABNORMAL) POCT Glucose (12/08/2021 7:06 PM EDT) athologist Signature POC Glucose 442 (H) 65 - 199 [facility] mg/dL [facility] Comment: Supplemental ranges: <140 mg/dL before meals <180 mg/dL all other times of the day Specimen Anatomical Collection Method Collection Time Receive d Time (Source) Location / / Volume Laterality Blood 12/08/2021 7:06 PM 2 7:06 EDT PM EDT Iker Cuevas MD POINT OF CARE TEST ORDERABLE S Performing Organization Address City/[facility]/[place] [address] Magnesium (12/08/2021 6:02 PM EDT) athologist Signature Magnesium 0.86 0.69 - 1.07 [facility] mmol/L [facility]OR[facility]ORY Specimen Anatomical Collection Method Collection Time Receive d Time (Source) Location / / Volume Laterality Blood 12/08/2021 6:02 PM 2 6:36 EDT PM EDT Resulting Agency Comment Spec In Lab Iker Cuevas MD CHEMISTRY ORDERABLES Performing Organization Address City/[facility]/[place] [address] (ABNORMAL) Basic Metabolic Panel (non-fasting) (12/08/2021 6:02 PM EDT) athologist Signature Glucose Lvl 392 (H) 65 - 199 [facility] mg/dL [facility] Comment: Diabetes: [...] City/State/[place] [address] (ABNORMAL) Differential, Automated (12/08/2021 6:02 PM EDT) [facility] gist Method Time Signature Neutrophils % 89.5 % [facility] LABORATORY Neutr Abs (ANC) 13.97 (H) 1.70 - [facility] 6.10 [facility] x10(3)/[facility] L LABORATORY Lymphocytes % 3.7 % [facility] LABORATORY Lymphocytes Abs 0.6 (L) 0.9 - 3.2 [facility] x10(3)/[facility] LABORATORY Monocytes % 6.1 % [facility] LABORATORY Monocyte Abs 1.0 (H) 0.3 - 0.9 [facility] x10(3)/[facility] LABORATORY Eosinophils % 0.0 % [facility] LABORATORY Eosinophils Abs 0.0 0.0 - 0.4 [facility] x10(3)/[facility] LABORATORY Basophils % 0.2 % [facility] LABORATORY Basophils Abs 0.0 0.0 - 0.1 [facility] x10(3)/[facility] LABORATORY Immature Gran % 0.50 [...] City/State/[place] [address] (ABNORMAL) Hemogram (12/08/2021 6:02 PM EDT) Analysis Performed At Patho logist Time Signature WBC 15.6 (H) 4.0 - 9.5 [facility] x10(3)/[facility] LABORATORY RBC 4.05 (L) 4.58 - [facility] 5.54 [facility] x10(6)/[facility] LABORATORY Hemoglobin 11.8 (L) 13.7 - [facility] 16.5 g/dL [facility] LABORATORY Hematocrit 35.8 (L) 40.5 - [facility] 48.5 % [facility]ORATORY MCV 88.4 82.9 - [facility] [address] [facility] LABORATORY MCH 29.1 27.5 - [place] ZHAORYAN 32.1 pg [facility] MCHC 33.0 32.0 - [place] 35.7 g/dL [facility] Platelets 178 145 - 357 [facility] x10(3)/[facility] LABORATORY RDWSD 49.3 (H) 36.0 - [facility] ZHAORY[facility] 45.[address] [facility] LABORATORY RDWCV 15.1 (H) 11.4 - [place] RYAN 13.8 % [facility] LABORATORY MPV 10.4 7.6 - 12.9 [facility] fL [facility] nRBC % Auto 0.0 % [facility] LABORATORY nRBC Abs Auto 0.000 0.000 - [place] ZHAORYAN 0.000 [facility] x10(3)/[facility] LABORATORY Specimen Anatomical Collection Method Collection Time Receive d Time (Source) Location / / Volume Laterality Blood 12/08/2021 6:02 PM 6:36 EDT PM EDT Resulting Agency Comment Spec In Lab [facility] BROWN HEMATOLOGY ORDERABLES Performing Organization Address City/State/[place] [address] (ABNORMAL) Troponin (12/08/2021 6:02 PM EDT) P athologist Signature Troponin-T 0.89 (H) 0.00 - [facility] 0.00 ng/mL [facility] Comment: The 99th percentile for Troponin [...] additional sample may be indicated. Reference: Third [place] Definition of Myocardial Infarction. Journal of the [place] College [employer] Cardiology 2012;60:1581-98 Specimen Anatomical Collection Method Collection Time Receive d Time (Source) Location / / Volume Laterality Blood 12/08/2021 6:02 PM 6:36 EDT PM EDT Resulting Agency Comment Spec In Lab Iker Cuevas MD CHEMISTRY ORDERABLES Performing Organization Address City/State/ZIP Code Phon e Number [place] [id number] COVID-19 PCR (12/08/2021 5:00 PM EDT) [facility] Method Time Signature SARS-CoV-2 Not Detected [...] using the Simplexa COVID-19 Direct Assay by [employer] as authorized by the FDA issued Emergency [...] Pathology and Laboratory Medicine at [facility], certified under the Clinical Laboratory [...] fact sheets at the following FDA website: https://www.fda.gov/medical-devices/lalhlgnuguu-lvrtvzo-6399-nythk-64-xsrfclqsr- yiu-bsifrlynxpopim-pnsphhq-devices/lushq-bgbvnirwhsi-vsuo SARS-CoV-2 Source [employer]ULT [employer]RARIAN Swab [facility] LABORATORY Specimen (Source) Anatomical Collection Method Collection Time Re ceived Time Location / / Volume Laterality Nasopharyngeal Swab 12/08/2021 5:00 12/08 PM EDT 6:03 PM EDT Comment: Symptoms->Surveillance Resulting Agency Comment Spec In Lab Iker Cuevas MD MICROBIOLOGY - GENERAL ORDER [place] Performing Organization Address City/State/[place] [address] EKG 12 Lead (12/08/2021 4:40 PM EDT) Component Value Ref Range Test Analysis Performed Pathologis t Method Time At Signature Ventricular rate 78 BPM MUSE SYSTEM Atrial Rate 78 BPM MUSE SYSTEM P-R Interval 152 ms MUSE SYSTEM QRS Duration 96 ms MUSE SYSTEM Q-T Interval 396 ms MUSE SYSTEM QTC Calculated 451 ms MUSE SYSTEM (Bezet) Calculated P [place] 44 degrees MUSE SYSTEM Calculated R [place] -31 degrees MUSE SYSTEM Calculated T [place] 124 degrees MUSE SYSTEM INTERPRETATION Normal sinus [...] 400 (H) 65 - 199 [facility] mg/dL [facility] Comment: Supplemental ranges: <140 mg/dL before meals <180 mg/dL all other times of the day Specimen Anatomical Collection Method Collection Time Receive d Time (Source) Location / / Volume Laterality Blood 12/08/2021 4:34 PM 2 4:34 EDT PM EDT Iker Cuevas MD POINT OF CARE TEST ORDERABLE S Performing Organization Address City/State/ZIP [place] [address] documented in this encounter [...] MEALS, First dose (after last modification) on Viis 12/11/21 at 1730, Until Discontinued, MEAL ASSOCIATED [...] Given 11/23 10:30 AM EDT 300 mcg (BOREMATIC MACHINE OPERATOR) ONCE PRN, Starting on Wed12/10/21 [...] Sean ine 0.9) flush 5 mL 0805 ([facility] Hold - Provider: Admin Adt - Reason: Transfer to a Procedural area)0900 (Not Given - Provider: Emma Garcia RN - Reason: Transfer to a Procedural area)1230 ([facility] Unhold - Provider: Admin Adt)1746 (Given [...] 12/12/2021 acetaminophen (Tylenol) tablet 650 mg 0805 ([facility] Hold - Provider: Admin Adt - Reason: Transfer to a Procedural area)1230 ([facility] Unhold - Provider: Admin Adt) 650 [...] Routine bisacodyL (Dulcolax) suppository 10 mg 0805 ([facility] Hold - Provider: Admin Adt - Reason: Transfer to a Procedural area)1230 ([facility] Unhold - Provider: Admin Adt) 10 [...] (Intra-Procedure), Routine niCARdipine (Cardene) (100 mcg/mL) dilution (BOREMATIC MACHINE OPERATOR) (CANCELED) 1030 (Given - Provider: [...] episode. & nbsp; For persistent hypoglycemia, con research quality assurance analyst longer-acting treatment for the duration of [...]
Routine documented in this encounter Care Teams Anchorer Relationship Specialty Start Date End Date Lovely Vicente MD PCP - General 04/16/[address] [place] [address] documented as of this encounter
--- OUTSIDE RECORDS SUMMARY | 2022-05-22 08:16 | XMS_ITS | Encounter Summary ---
:1945 Author Organization [facility] [place] [address] Care Team Providers Name Role Phone Lovely Vicente MD Primary Care Provider Encounter Details Date Type Department Care Team Description 03/20/2021 Ancillary Procedure Radiology Library at [place] [address] [place] [address] [phone] Social History Tobacco Use Types Packs/Day Years [...] Dolan MD [facility] er [address] [place], [place] [address] (Wo rk) 05/28/2022 Laboratory Appointment Lab 05/28/2022 Office Visit Cardiology Zulma Dolan MD [facility] [place] [address] Liz Poole PA [facility] [place] [address] 06/10/2022 Office Visit Dermatology Laura Scherer MD [facility] ER [address] [place], [place] [address] (Wo rk) documented as of [...] Organization Address City/State/ZIP Code Phon e Number [place], [place] documented in this encounter Visit Diagnoses Not on filedocumented in this encounter Care Teams Tile Layer Drainage Relationship Specialty Start Date End Date Lovely Vicente MD PCP - General 04/16/[address] [place] [address] documented as of this encounter
--- OUTSIDE RECORDS SUMMARY | 2022-05-22 08:16 | XMS_ITS | Encounter Summary ---
:1945 Author Organization [facility] [place] [address] Care Team Providers Name Role Phone Lovely Vicente MD Primary Care Provider Encounter Details Date Type Department Care Team Description 07/28/2019 Laboratory Appointment Lab 3L [facility] [place] [id number] Social History Tobacco Use Types Packs/Day Years [...] MD [facility] er [place], [place] [address] (Wo rk) 05/28/2022 Laboratory Appointment Lab 05/28/2022 Office Visit Cardiology Zulma Dolan MD [facility] [place] [address] Liz Poole PA [facility] [place] [address] 06/10/2022 Office Visit Dermatology Laura Scherer MD [facility] DR [address] [place] [address] (Wo rk) documented as of this encounter [...] Organization Address City/State/Z[place] [address] (ABNORMAL) Basic Metabolic Panel (non-fasting) (07/28/2019 8:36 AM EST) athologist Signature Glucose Lvl 153 65 - 199 [facility] mg/dL [facility] Comment: Diabetes: [...] of body mass or the acutely ill. http://ActSocial/[facility]platzkingnkf eGFR 81 >=60 mL/min/1.73 m?? [facility] Comment: The eGFR was calculated using the CKD-EP I equation. As with all creatinine based estimates of kidney function, eGFR values calculated with the CKD-EPI equation are not accurate in patients wi th acute kidney failure, extremes of body mass or the acutely ill. http://ActSocial/[facility] [place], [place]kf Specimen Anatomical Collection Method Collection Time Receive d Time (Source) Location / / Volume Laterality Blood specimen 07/28/2019 8:36 AM 020 8:46 (specimen) EST AM EST Resulting Agency Comment Spec In Lab Danette Maxwell APRN CHEMISTRY ORDERABLES Performing Organization Address City/State/ZIP [place] [address] documented in this encounter Visit Diagnoses Diagnosis Chronic systolic heart failure documented in this encounter Care Teams Leather Coverer Relationship Specialty Start Date End Date Lovely Vicente MD PCP - General 04/16/[address] [place] [address] documented as of this encounter
--- OUTSIDE RECORDS SUMMARY | 2022-05-22 08:16 | XMS_ITS | Encounter Summary ---
:1945 Author Organization [facility] Address [place] [address] Care Team Providers Name Role Phone Lovely Vicente MD Primary Care Provider Reason for Referral Diagnostic Test (Routine) - Specialty Diagnoses / Procedures Referred By Contact Refer red To Contact Cardiology Diagnoses Chronic systolic heart failure Danette Maxwell APRN [facility] Non-Inv Card Lab Procedures Echocardiogram Transthoracic(Leb) [facility] [place] [address] [place] [address] Referral ID Status Reason Start Date Expiration Visits Visits Date Requested Authorized [id number] Specialty 08/15/2018 08/15/2018 1 1 Service Requested Encounter Details Date Type Department Care Team Description 04/18/2018 Office Visit Cardiology at [facility] Danette Maxwell Chronic systolic heart failu re; [facility] STACIE Gomes On amiodarone therapy; [facility] Ischemic cardiomyopathy; [place], [place] DR [address] (arteriosclerotic cardiovascular d isease) [address] CARDIOLOGY [phone] [place], [place] [address] Social History Tobacco Use Types Packs/Day Years [...] in this encounter Progress Notes Danette Maxwell, AUTOMATIC PROFILE SANDER OPERATOR - 04/18/2018 10:40 AM EDT ID [...] Dolan MD [facility] [address] [place], [place] [address] (Wo rk) 05/28/2022 Laboratory Appointment Lab 05/28/2022 Office Visit Cardiology Zulma Dolan [place] [address] Liz Poole PA [facility] [place] [address] 06/10/2022 Office Visit Dermatology Laura Scherer MD [facility] DR [address] [place], [place] [address] (Wo rk) documented as of this encounter Results ECHOCARDIOGRAM COMPLETE W CONTRAST (08/15/2018 7:55 AM EST) P athologist Signature EF 35 [facility] Anatomical Region Laterality Modality Other Specimen (Source) Anatomical Location Collection Method / Collectio n Time Received Time / Laterality Volume 08/15/2018 Narrative 08/15/2018 8:18 AM EST Procedure: ?Transthoracic Echocardiogram Patient: ?NATALYA Mccollum ? (Age): 1945(73y) Med Rec#: ? [id number] ?Sex: ?M ? Site Loc: ? [facility] ?Ht / Wt: ??172(cm)/81(kg) Pt. Loc: ?Echo Lab ?BSA: ?1.94 Study Date: ?? 08/15/2018 ?Pt. Type: Outpatient Tape: ? Referring: MARY ELLEN Reading: Scott Ortega ([id number]) Water Rights Specialist: Laura Sargent Diagnosis: *Chronic systolic (congestive) [...] E-wave Vmax ?1.2 ?m/sec ? MV deceleration yodl176.4 ? msec ? MV A-wave Vmax ?0.7 [...] ? Mid-Inferior ?Hypokinetic ? Mid-Inferoseptal ?Hypokinetic ? [place]-Septal ? Akinetic ? [place]-Anterior ? Hypokinetic ? [place]-Lateral ?Akinetic ? [place]-Inferior ? Hypokinetic ? [place]-Tip ?Akinetic ? This report has been electronically sign ed by: _ Scott Ortega M.D. ? 08/15/2018 08:17:26 Images reviewed and interpretation verif ied [facility] Cardiac Ultrasound Laboratory Procedure Note Scott Ortega MD - 08/15/2018Format ting of this note might be different from the original. Procedure: Transthoracic Echocardiogram Patient: NATALYA MCBRIDE(Age): [birth year]73y) Med Rec#: [id number] Sex: M Site Loc: [facility] Ht / Wt: 172(cm)/81(kg) Pt. Loc: Echo Lab BSA: 1.94 Study Date: 08/15/2018 Pt. Type: Outpati ent Tape: Referring: MARY ELLEN Reading: Scott Ortega ([id number]) Water Rights Specialist: Laura Sargent Diagnosis: *Chronic systolic (congestive) [...] MV E-wave Vmax 1.2 m/sec MV deceleration dhrl521.4 msec MV A-wave Vmax 0.7 m/sec MV [...] Akinetic Mid-Posterolateral Akinetic Mid-Inferior Hypokinetic Mid-Inferoseptal Hypokinetic [place]-Septal Akinetic [place]-Anterior Hypokinetic [place]-Lateral Akinetic [place]-Inferior Hypokinetic [place]-Tip Akinetic This report has been electronically sign ed by: _ Scott Ortega M.D. 08/15/2018 08:17: 26 Images reviewed and interpretation verif ied [facility] Cardiac Ultrasound Laboratory Danette Maxwell APRN ECHO ORDERABLES (ABNORMAL) Basic Metabolic Panel (non-fasting) (04/18/2018 9:19 AM EDT) P athologist Signature Glucose Lvl 167 65 - 199 [facility] mg/dL [facility] [...] of body mass or the acutely ill. http://Pure N[employer]/[facility] ADAnkf eGFR 70 >=60 mL/min/1.73 m?? [facility] Comment: The eGFR was calculated using the CKD-EP I equation. As with all creatinine based estimates of kidney function, eGFR values calculated with the CKD-EPI equation are not accurate in patients wi th acute kidney failure, extremes of body mass or the acutely ill. http://P[employer]/[facility] AD[facility]kf Specimen Anatomical Collection Method Collection Time Receive d Time (Source) Location / / Volume Laterality Blood specimen 04/18/2018 9:19 AM 018 9:34 (specimen) EDT AM EDT Resulting Agency Comment Spec In Lab Danette Maxwell APRN CHEMISTRY ORDERABLES Performing Organization Address City/State/[place] [address] (ABNORMAL) pro-Brain Natriuretic Peptide (04/18/2018 9:19 AM EDT) P athologist Signature ProBNP 2,199 (H) <=[address] [facility] pg/mL [facility] Specimen Anatomical Collection Method Collection Time Receive d Time (Source) Location / / Volume Laterality Blood specimen 04/18/2018 9:19 AM 018 9:34 (specimen) EDT AM EDT Resulting Agency Comment Spec In Lab Danette Maxwell APRN CHEMISTRY ORDERABLES Performing Organization Address City/State/[place] [address] documented in this encounter Visit Diagnoses Diagnosis Chronic systolic heart failure On amiodarone therapy Ischemic cardiomyopathy Other specified forms of chronic ischemi c heart disease ASCVD (arteriosclerotic cardiovascular d isease) Unspecified cardiovascular disease Chronic systolic heart failure documented in this encounter Care Teams Court Manager Relationship Specialty Start Date End Date Lovely Vicente MD PCP - General 04/16/[address] [place] [address] documented as of this encounter
--- OUTSIDE RECORDS SUMMARY | 2022-05-22 08:16 | XMS_ITS | Encounter Summary ---
:1945 [place] [address] Care Team Providers Name Role Phone Lovely Vicente MD Primary Care Provider Encounter Details Date Type Department Care Team Description 07/12/2019 Office Visit Dermatology at Selina Garcia, Rigoberto Yarbrough (actinic keratosis); MD SHAY Quick III (seborrheic keratosis); [address] [facility] Multiple benign nevi; [place] [address] History of melanoma [phone] [facility]DER[facility] [place], [place] [address] Social History Tobacco Use [...] encounter. Rigoberto Garcia MD Section of Dermatology [facility] documented in this encounter Plan of Treatment Upcoming Encounters Date Type Specialty Care Team Description 05/28/2022 Appointment Cardiology Zulma Dolan MD [facility] Dr [place], [place] [address] (Wo rk) 05/28/2022 Laboratory Appointment Lab 05/28/2022 Office Visit Cardiology Zulma Dolan MD [facility] [place] [address] Liz Poole PA [facility] [place] [address] 06/10/2022 Office Visit Dermatology Laura Scherer MD [facility] DR [address] [place], [place] [address] (Wo rk) documented as of this encounter Visit Diagnoses Diagnosis AK (actinic keratosis) Actinic keratosis SK (seborrheic keratosis) Other seborrheic keratosis Multiple benign nevi Benign neoplasm of skin, site unspecifie d History of melanoma Personal history of malignant melanoma o f skin documented in this encounter Care Teams Heel Former Relationship Specialty Start Date End Date Lovely Vicente MD PCP - General 04/16/15 [facility] [address] [place] [address] documented as of this encounter
--- OUTSIDE RECORDS SUMMARY | 2022-05-22 08:16 | XMS_ITS | Encounter Summary ---
:1945 [place] [address] Care Team Providers Name Role Phone Lovely Vicente MD Primary Care Provider Encounter Details Date Type Department Care Team Description 12/07/2021 Ancillary Procedure Radiology Library at [facility] Lovely murillo MD [facility] [address] [address] [place], [place] [phone] (Wo lissa) [address] [phone] Social History Tobacco Use Types Packs/Day Years [...] MD [facility] [address] [place] [address] (Wo rk) 05/28/2022 Laboratory Appointment Lab 05/28/2022 Office Visit Cardiology Zulma Dolan MD [facility] [place] [address] Liz Poole PA [facility] [place] [address] 06/10/2022 Office Visit Dermatology Laura Scherer MD [facility] DR [address] [place], [place] [...] Organization Address City/State/ZIP Code Phon e Number [place], [place] documented in this encounter Visit Diagnoses Not on filedocumented in this encounter Care Teams Automatic Operator Relationship Specialty Start Date End Date Lovely Vicente MD PCP - General 04/16/[address] [place] [address] documented as of this encounter
--- OUTSIDE RECORDS SUMMARY | 2022-05-22 08:16 | XMS_ITS | Encounter Summary ---
:1945 Author Organization [facility] [place] [address] Care Team Providers Name Role Phone Lovely Vicente MD Primary Care Provider Encounter Details Date Type Department Care Team Description 03/20/2021 Ancillary Procedure Radiology Library [place] [address] [place] [address] [phone] Social History Tobacco Use Types Packs/Day Years [...] Dolan MD [facility] er [address] [place], [place] [address] (Wo rk) 05/28/2022 Laboratory Appointment Lab 05/28/2022 Office Visit Cardiology Zulma Dolan MD [facility] [place] [address] Liz Poole PA [facility] [place] [address] 06/10/2022 Office Visit Dermatology Laura Scherer MD [facility] ER DR [address] [place], [place] [address] (Wo rk) documented [...] Organization Address City/State/ZIP Code Phon e Number [place], [place] documented in this encounter Visit Diagnoses Not on filedocumented in this encounter Care Teams Radiation Protection Engineer Relationship Specialty Start Date End Date Lovely Vicente MD PCP - General 04/16/[address] [place] [address] documented as of this encounter
--- OUTSIDE RECORDS SUMMARY | 2022-05-22 08:16 | XMS_ITS | Encounter Summary ---
:1945 [place] [address] Care Team Providers Name Role Phone Lovely Vicente MD Primary Care Provider Encounter Details Date Type Department Care Team Description 11/29/2017 Hospital Encounter Radiology Library at Estefany Maxwell Pain [facility] [place] [address] CARDIOLOGY [phone] [place], [place] [address] (Wo rk) Social History Tobacco [...] Dolan MD [facility] [place], [place] [address] (Wo rk) 05/28/2022 Laboratory Appointment Lab 05/28/2022 Office Visit Cardiology Zulma Dolan MD [facility] [place] [address] [facility] [place] [address] 06/10/2022 Office Visit Dermatology Laura Scherer MD [facility] [address] [place], [place] [address] (Wo rk) documented as of [...] Organization Address City/State/ZIP Code Phon e Number [place], [place] documented in this encounter Visit Diagnoses Diagnosis Pain Generalized pain documented in this encounter Care Teams Cloth Mercerizing Supervisor Relationship Specialty Start Date End Date Lovely Vicente MD PCP - General 04/16/[address] [place] [address] documented as of this encounter
--- OUTSIDE RECORDS SUMMARY | 2022-05-22 08:16 | XMS_ITS | Encounter Summary ---
:1945 Author Organization [facility] [place] [address] Care Team Providers Name Role Phone Lovely Vicente MD Primary Care Provider Encounter Details Date Type Department Care Team Description 11/29/2017 Hospital Encounter Vascular Lab at Janett Walter PAD (peripheral [facility], RVT artery [facility]) [place] [address] Social History Tobacco Use Types Packs/Day Years [...] MD [facility] [address] [place], [place] [address] (Wo rk) 05/28/2022 Laboratory Appointment Lab 05/28/2022 Office Visit Cardiology Zulma Dolan MD [facility] [place] [address] Liz Poole PA [facility] [place] [address] 06/10/2022 Office Visit Dermatology Laura Scherer MD [facility] DR [address] [place], [place] [address] (Wo rk) documented as [...] Department: Vascular Surgery Lab VASCUBASE Report Patient: [id number] (DON HOANG) CPT: 70731 ICD10: I72.4;I73.9 Referring Physician: DANETTE MAXWELL ?? [...] unspecified documented in this encounter Care Teams Bias Cutter Helper Relationship Specialty Start Date End Date Lovely Vicente MD PCP - General 04/16/[address] [place], [place] [address] [address] [place] [address] documented as of this encounter
--- OUTSIDE RECORDS SUMMARY | 2022-05-22 08:16 | XMS_ITS | Encounter Summary ---
:1945 Author Organization [facility] [place] [address] Care Team Providers Name Role Phone Lovely Vicente MD Primary Care Provider Reason for Visit Reason Comments Follow-up Skin Check Encounter Details Date Type Department Care Team Description 01/06/2018 Office Visit Dermatology at Rigoberto Formantipmirna nevi; Abdelrahman HOOPER MD History of melanoma; [address] [facility] [place] [address] [address] [facility] [place], [place] [address] Social History Tobacco Use Types [...] Dolan MD [facility] [address] [place], [place] [address] (Wo rk) 05/28/2022 Laboratory Appointment Lab 05/28/2022 Office Visit Cardiology Zulma Dolan MD [facility] [place] [address] Liz Poole PA [facility] [place] [address] 06/10/2022 Office Visit Dermatology Laura Scherer MD [facility] [address] [place], [place] [address] (Wo rk) documented as of this encounter Visit Diagnoses Diagnosis Multiple nevi Benign neoplasm of skin, site unspecifie d History of melanoma Personal history of malignant melanoma o f skin Seborrheic keratosis Other seborrheic keratosis documented in this encounter Care Teams Wrapper Rewinder Relationship Specialty Start Date End Date Lovely Vicente MD PCP - General 04/16/[address] [place] [address] documented as of this encounter
--- OUTSIDE RECORDS SUMMARY | 2022-05-22 08:16 | XMS_ITS | Encounter Summary ---
:1945 Author Organization [facility] Address [address] [place] [address] Care Team Providers Name Role Phone Lovely Vicente MD Primary Care Provider Reason for Referral Diagnostic Test (Routine) - Closed Specialty Diagnoses / Procedures Referred By Contact Refer red To Contact Cardiology Diagnoses Chronic systolic heart failure Danette Maxwell APRN [facility] Non-Inv Card Lab Procedures Echocardiogram Transthoracic(Leb) [facility] [address] [place] [address] [place] [address] Referral ID Status Reason Start Date Expiration Date Visits V isits Requested Authorized [id number] Closed Specialty 07/17/2019 09/14/2019 1 1 Service Requested Encounter Details Date Type Department Care Team Description 01/16/2019 Office Visit Cardiology at [facility] Danette Mawxell, Chronic systolic heart failu re; [facility] STACIE Cardiomyopathy, ischemic; Drive [facility] Hx of thyroid cancer; [place], [place] DR [address]MORE (arteriosclerotic heart disease); [phone] CARDIOLOGY MARIA VICTORIA (obstructive sleep apnea) on CPAP [phone] [place], [place] [address] (Wo rk) Social History Tobacco Use Types [...] K+ 4.6 today 6. Post-op atrial fibrillation [id number] (CHF, HTN, DM, vascular disease, thromboembolism) [...] Zulma Dolan MD [facility] [place], [place] [address] (Wo rk) 05/28/2022 Laboratory Appointment Lab 05/28/2022 Office Visit Cardiology Zulma Dolan [place] [address] Liz Poole PA [address] [place] [address] 06/10/2022 Office Visit Dermatology Laura Scherer MD [facility] [address] [place], [place] [address] (Wo rk) documented as of this encounter Results ECHOCARDIOGRAM COMPLETE W CONTRAST (07/28/2019 8:19 AM EST) athologist Signature EF 40 HEARTLAB SYSTEM Anatomical Region Laterality Modality Other Specimen (Source) Anatomical Location Collection Method / Collectio n Time Received Time / Laterality Volume 07/28/2019 Narrative 07/28/2019 8:38 AM EST Procedure: ?Transthoracic Echocardiogram Patient: ?NATALYA Mccollum ? (Age): 1945(74y) Med Rec#: ? [id number] ?Sex: ?M ? Site Loc: ? [facility] ?Ht / Wt: ??172(cm)/81(kg) Pt. Loc: ?Echo Lab ?BSA: ?1.94 Study Date: ?? 07/28/2019 ?Pt. Type: Outpatient Tape: ? Referring: MARY ELLEN Reading: Ifeanyi Truong ([id number]) Electromechanisms Design Drafter: Fadumo Flanagan RDCS, REGINA Diagnosis: *Chronic systolic [...] E-wave Vmax ?1 ?m/sec ? MV deceleration pfbz682.5 ? msec ? MV A-wave Vmax ?1 [...] ? Pulmonic Valve/Qp:Qs ?Value ?Units (Range) ? MI end-diastolic Vma1.1 ?m/sec ? Wall Motion: Segment Name ?Rest ? Base-Anteroseptal ?? Normal ? Base-Anterior ? Normal ? Base-Anterolateral ??Normal ? Base-Posterolateral Normal ? Base-Inferior ? Akinetic ? Base-Inferoseptal ?? Normal ? Mid-Anteroseptal ?Normal ? Mid-Anterior ?Hypokinetic ? Mid-Anterolateral ?? Normal ? Mid-Posterolateral ??Normal ? Mid-Inferior ?Hypokinetic ? Mid-Inferoseptal ?Normal ? [place]-Septal ? Normal ? [place]-Anterior ? Hypokinetic ? [place]-Lateral ?Normal ? [place]-Inferior ? Akinetic ? [place]-Tip ?Hypokinetic ? This report has been electronically sign ed by: _ Ifeanyi Truong M.D. ? 07/28/2019 0 8:38:01 Images reviewed and interpretation [facility] Procedure Note Ifeanyi Truong MD - 07/28/2019Formatt ing of this note might be different from the original. Procedure: Transthoracic Echocardiogram Patient: NATALYA MCBRIDE(Age): [birth year]74y) Med Rec#: [id number] Sex: M Site Loc: [facility] Ht / Wt: 172(cm)/81(kg) Pt. Loc: Echo Lab BSA: 1.94 Study Date: 07/28/2019 Pt. Type: Outpati ent Tape: Referring: MARY ELLEN Reading: Ifeanyi Truong ([id number]) Electromechanisms Design Drafter: Fadumo Flanagan [facility], REGINA Diagnosis: *Chronic systolic (congestive) [...] MV E-wave Vmax 1 m/sec MV deceleration kytt255.5 msec MV A-wave Vmax 1 m/sec MV [...] 0.7 ratio Pulmonic Valve/Qp:Qs Value Units (Range) MI end-diastolic Vma1.1 m/sec Wall Motion: Segment Name Rest Base-Anteroseptal Normal Base-Anterior Normal Base-Anterolateral Normal Base-Posterolateral Normal Base-Inferior Akinetic Base-Inferoseptal Normal Mid-Anteroseptal Normal Mid-Anterior Hypokinetic Mid-Anterolateral Normal Mid-Posterolateral Normal Mid-Inferior Hypokinetic Mid-Inferoseptal Normal [place]-Septal Normal [place]-Anterior Hypokinetic [place]-Lateral Normal [place]-Inferior Akinetic [place]-Tip Hypokinetic This report has been electronically sign ed by: _ Ifeanyi Truong M.D. 07/28/2019 08:38:0 1 Images reviewed and interpretation verif ied [facility] Cardiac Ultrasound Laboratory Danette Maxwell APRN ECHO ORDERABLES (ABNORMAL) Basic Metabolic Panel (non-fasting) (01/16/2019 7:49 AM EDT) P athologist Signature Glucose Lvl 105 65 - 199 [facility] mg/dL [facility]OR[facility]ORY [...] of body mass or the acutely ill. [email or web address] MediQuipnkf eGFR 79 >=60 mL/min/1.73 m?? [facility] Comment: The eGFR was calculated using the CKD-EP I equation. As with all creatinine based estimates of kidney function, eGFR values calculated with the CKD-EPI equation are not accurate in patients wi th acute kidney failure, extremes of body mass or the acutely ill. http://Shahiya/[facility]ISnkf Specimen Anatomical Collection Method Collection Time Receive d Time (Source) Location / / Volume Laterality Blood specimen 01/16/2019 7:49 AM 019 7:55 (specimen) EDT AM EDT Resulting Agency Comment Spec In Lab Danette Maxwell APRN CHEMISTRY ORDERABLES Performing Organization Address City/State/[place] [address] (ABNORMAL) pro-Brain Natriuretic Peptide (01/16/2019 7:49 AM EDT) P athologist Signature ProBNP 780 (H) <=125 pg/mL [facility] Specimen Anatomical Collection Method Collection Time Receive d Time (Source) Location / / Volume Laterality Blood specimen 01/16/2019 7:49 AM 019 7:55 (specimen) EDT AM EDT Resulting Agency Comment Spec In Lab Danette Maxwell APPEALS ANALYST CHEMISTRY ORDERABLES Performing Organization Address City/State/[place] [address] documented in this encounter Visit Diagnoses Diagnosis Chronic systolic heart failure Cardiomyopathy, ischemic Other specified forms of chronic ischemi c heart disease Hx of thyroid cancer Personal history of malignant neoplasm o f thyroid ASHD (arteriosclerotic heart disease) Coronary atherosclerosis of unspecified type of vessel, [place] or graft MARIA VICTORIA (obstructive sleep apnea) on CPAP Obstructive sleep apnea (adult) (pediatr ic) Chronic systolic heart failure documented in this encounter Care Teams Cafe Operator Relationship Specialty Start Date End Date Lovely Vicente MD PCP - General 04/16/[address] [place] [address] documented as of this encounter
--- OUTSIDE RECORDS SUMMARY | 2022-05-22 08:16 | XMS_ITS | Encounter Summary ---
:1945 Author Organization [facility] [place] [address] Care Team Providers Name Role Phone Lovely Vicente MD Primary Care Provider Encounter Details Date Type Department Care Team Description 11/29/2017 Office Visit Cardiology at [facility] Annette Maxwell Chronic systolic congestive heart failure; [facility] A, [employer]ER ASCVD (arteriosclerotic cardiovascular d isease); [facility] [place][note 2] Cardiomyopathy, ischemic; [place], [place] PAD (peripheral artery disease) [phone] CARDIOLOGY [phone] [place], [place] [address] Social History Tobacco Use Types [...] in this encounter Progress Notes Annette Maxwell, [employer]ER - 11/29/2017 9:20 AM EDT ID and [...] painful and swollen right foot 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 Plan: 1. A review of [...] Zulma Dolan MD [facility] [place], [place] [address] (Wo rk) 05/28/2022 Laboratory Appointment Lab 05/28/2022 Office Visit Cardiology Zulma Dolan MD [facility] [place] [address] Liz Poole PA [facility] [place] [address] 06/10/2022 Office Visit Dermatology Laura Scherer MD [facility] DR [address] [place], [place] [address] (Wo rk) documented as of this encounter Results Arterial Duplex Leg, Unil (11/29/2017 10:32 AM EDT) Component Value Ref Test Analysis Performed At [facility] Range Method Time Signature VB Text Department: Vascular Surgery Lab VASCUBASE Report Patient: [id number] (GREGORY HOANG) CPT: 64956 ICD10: I72.4;I73.9 Referring Physician: ANNETTE MAXWELL ?? [...] Glucose Lvl 217 (H) 65 - 199 [facility] mg/dL [facility] Comment: Diabetes: [...] [facility] Estimated GFR >60 >=60 [facility] Comment: The reported eGFR should be multiplied b y 1.2 for patients. The MDRD is not an appropriate measure o f renal function for patients with body mass extremes or in patients with acute kidney failure. http://Sword [employer].Public [employer] Works/DHnkdep http://Core Competence/DHMCnkf Specimen Anatomical Collection Method Collection Time Receive d Time (Source) Location / / Volume Laterality Blood specimen 11/29/2017 8:22 AM 05/07/2 018 8:29 (specimen) EDT AM EDT Resulting Agency Comment Spec In Lab Annette Maxwell [employer]ER CHEMISTRY ORDERABLES Performing Organization Address City/State/ZIP [place] [address] (ABNORMAL) pro-Brain Natriuretic Peptide (11/29/2017 8:22 AM EDT) P athologist Signature ProBNP 1,769 (H) <=125 [facility] pg/mL [facility] Specimen Anatomical Collection Method Collection Time Receive d Time (Source) Location / / Volume Laterality Blood specimen 11/29/2017 8:22 AM 018 8:29 (specimen) EDT AM EDT Resulting Agency Comment Spec In Lab Annette Maxwell [employer]ER CHEMISTRY ORDERABLES Performing Organization Address City/[facility]/ZIP [place] [address] documented in this encounter Visit Diagnoses Diagnosis Chronic systolic congestive heart failur e Chronic systolic heart failure ASCVD (arteriosclerotic cardiovascular d isease) Unspecified cardiovascular disease Cardiomyopathy, ischemic Other specified forms of chronic ischemi c heart disease PAD (peripheral artery disease) Peripheral vascular disease, unspecified documented in this encounter Care Teams Advertising Production Manager Relationship Specialty Start Date End Date Lovely Vicente MD PCP - General 04/16/[address] [place] [address] documented as of this encounter
--- OUTSIDE RECORDS SUMMARY | 2022-05-22 08:16 | XMS_ITS | Encounter Summary ---
:1945 [place] [address] Care Team Providers Name Role Phone Lovely Vicente MD Primary Care Provider Encounter Details Date Type Department Care Team Description 04/16/2021 Office Visit Cardiology at [facility] Liz Poole, Chronic systolic heart [facility] [place] [address] Cardiology Dept [phone] [place], [place] [address] Social History Tobacco Use Types [...] feeling good. 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 07/07/2019 - 07/21/2019 Zio Patch Sed [employer] Teacher The patient had a minimum heart [...] K+ 5.2 today 6. Post-op atrial fibrillation [id number] 7 (CHF, HTN, DM, vascular disease, thromboembolism) On warfarin - recent labile INR Will discuss with PCP, option of Luis Daniel 7. PAD 08/06/2017: Right 1st, 2nd, 3rd toe amputation 08/11/2017: Left??femoral arterial access, RLE??angiogram, Balloon angioplasty of R PT 10/25/2017: right popliteal-pedal bypass at [facility] 8. Hypothyrodism S/p thyroidectomy for goiter Continue [...] Cardiology Zulma Dolan MD [facility] [place], [place] [address] (Wo rk) 05/28/2022 Laboratory Appointment Lab 05/28/2022 Office Visit Cardiology Zulma Dolan MD [facility] [place] [address] Liz Poole PA [facility] [place] [address] 06/10/2022 Office Visit Dermatology Laura Scherer MD [facility] DR TE[address] GR-DERMAT [place], [place] [address] (Wo rk) documented as of this encounter Results (ABNORMAL) Basic Metabolic Panel (non-fasting) (04/16/2021 9:58 AM EDT) athologist Signature Glucose Lvl 77 65 - 199 [facility] mg/dL [facility] Comment: Diabetes: >=200 mg/dL plus symp toms BUN 23 (H) 10 - 20 mg/dL [facility] Creatinine 1.26 0.80 - 1.50 [...] estions. Chloride 103 98 - 107 mmol/L [facility] CO2 28 22 - 31 mmol/L [facility] Anion Gap 9 5 - 15 mmol/L [facility] Calcium 9.3 8.5 - 10.5 mg/dL [facility] Estimated GFR 55 (L) >=60 mL/min/1.73 m?? [facility] [...] City/State/[place] [address] (ABNORMAL) pro-Brain Natriuretic Peptide (04/16/2021 9:58 AM EDT) P athologist Signature ProBNP 523 (H) <=124 pg/mL [facility] Specimen Anatomical Collection Method Collection Time Receive d Time (Source) Location / / Volume Laterality Blood 04/16/2021 9:58 AM EDT 10:02 AM EDT Resulting Agency Comment Spec In Lab Zulma Plunkett MD CHEMISTRY ORDERABLES Performing Organization Address City/State/[place] [address] documented in this encounter Visit Diagnoses Diagnosis Chronic systolic heart failure documented in this encounter Care Teams Spa Technician Relationship Specialty Start Date End Date Lovely Vicente MD PCP - General 04/16/[address] [place] [address] documented as of this encounter
--- OUTSIDE RECORDS SUMMARY | 2022-05-22 08:16 | XMS_ITS | Encounter Summary ---
:1945 Author Organization [facility] [place] [address] Care Team Providers Name Role Phone Lovely Vicente MD Primary Care Provider Encounter Details Date Type Department Care Team Description 12/08/2021 External Results Non-Invasive Cardiology Lab Mar y None [facility] [place] [address] Social History Tobacco Use Types Packs/Day [...] MD [facility] er [place], [place] [address] (Wo rk) 05/28/2022 Laboratory Appointment Lab 05/28/2022 Office Visit Cardiology Zulma Dolan MD [facility] [place] [address] Liz Poole PA [facility] [place] [address] 06/10/2022 Office Visit Dermatology Laura Scherer MD [facility] DR TE[address]MAT [place], [place] [address] (Wo rk) documented as [...] on filedocumented in this encounter Care Teams Histopathologist Relationship Specialty Start Date End Date Lovely Vicente MD PCP - General 04/16/[address] [place] [address] documented as of this encounter
--- OUTSIDE RECORDS SUMMARY | 2022-05-22 08:16 | XMS_ITS | Encounter Summary ---
:1945 Author Organization [facility] [place] [address] Care Team Providers Name Role Phone Lovely Vicente MD Primary Care Provider Encounter Details Date Type Department Care Team Description 11/29/2017 Laboratory Lab 3L Barbara Chronic systoli c congestive heart failure; Appointment [facility] ASCVD (ar teriosclerotic cardiovascular disease); Hospital Cardiomyopathy, [place] [address] Social History Tobacco Use Types [...] Dolan MD [facility] [place] [address] (Wo rk) 05/28/2022 Laboratory Appointment Lab 05/28/2022 Office Visit Cardiology Zulma Dolan MD [facility] [place] [address] Liz Poole PA [facility] [place] [address] 06/10/2022 Office Visit Dermatology Laura Scherer MD [facility] ER DR [address] [place], [place] [address] (Wo rk) documented as [...] 12.5 [facility] LABORATORY INR 2.1 [facility] [...] Organization Address City/State/[place] [address] (ABNORMAL) Basic Metabolic Panel (non-fasting) (11/29/2017 8:22 AM EDT) P athologist Signature Glucose Lvl 217 (H) 65 - 199 [facility] mg/dL [facility] Comment: [...] [facility] Estimated GFR >60 >=60 [facility] Comment: The reported eGFR should be multiplied b y 1.2 for patients. The MDRD is not an appropriate measure o f renal function for patients with body mass extremes or in patients with acute kidney failure. http://Spinback.Surround App/DHnkdep http://CreditCardsOnline/DHMCnkf Specimen Anatomical Collection Method Collection Time Receive d Time (Source) Location / / Volume Laterality Blood specimen 11/29/2017 8:22 AM 018 8:29 (specimen) EDT AM EDT Resulting Agency Comment Spec In Lab Danette Maxwell APRN CHEMISTRY ORDERABLES Performing Organization Address City/State/[place] [address] (ABNORMAL) pro-Brain Natriuretic Peptide (11/29/2017 8:22 AM EDT) P athologist Signature ProBNP 1,769 (H) <=125 [facility] pg/mL [facility] Specimen Anatomical Collection Method Collection Time Receive d Time (Source) Location / / Volume Laterality Blood specimen 11/29/2017 8:22 AM 018 8:29 (specimen) EDT AM EDT Resulting Agency Comment Spec In Lab Danette Maxwell APRN CHEMISTRY ORDERABLES Performing Organization Address City/State/ZIP Code Phon e Number [address] Lavender Tube HOLD (11/29/2017 8:14 AM EDT) Patholo gist Method Time Signature Lavender Hold Sample in [facility] lab. [facility] Specimen Anatomical Collection Method Collection Time Receive d Time (Source) Location / / Volume Laterality Blood specimen No Charge / 11/29/2017 8:14 AM 018 8:29 (specimen) Unknown EDT AM EDT Lovely Vicente MD HEMATOLOGY ORDERABLES Performing Organization Address City/State/[place] [address] documented in this encounter Visit Diagnoses Diagnosis Chronic systolic congestive heart failur e Chronic systolic heart failure ASCVD (arteriosclerotic cardiovascular d isease) Unspecified cardiovascular disease Cardiomyopathy, ischemic Other specified forms of chronic ischemi c heart disease documented in this encounter Care Teams Photographer Lithographic Relationship Specialty Start Date End Date Lovely Vicente MD PCP - General 04/16/[address] [place] [address] documented as of this encounter
--- OUTSIDE RECORDS SUMMARY | 2022-05-22 08:16 | XMS_ITS | Encounter Summary ---
:1945 Author Organization [facility] [place] [address] Care Team Providers Name Role Phone Lovely Vicente MD Primary Care Provider Encounter Details Date Type Department Care Team Description 12/07/2021 Telephone Cardiology Eddi Briceño Jr., [facility] [place] [address] [facility] [phone] CARDIOLOGY DEPT [place], [place] [address] (Wo rk) Social History [...] [facility] Referring Provider: Marisela Dean, SENIOR [place] [address] [place] [address] Don Veda Kushal 76 y.o. w / [...] MD [facility] [place] [address] (Wo rk) 05/28/2022 Laboratory Appointment Lab 05/28/2022 Office Visit Cardiology Zulma Dolan MD [facility] [place] [address] Liz Poole PA [facility] [place] [address] 06/10/2022 Office Visit Dermatology Laura Scherer MD [facility] DR [address] [place], [place] [address] (Wo rk) documented as of this encounter Visit Diagnoses Not on filedocumented in this encounter Care Teams Pipe Line Inspector Relationship Specialty Start Date End Date Lovely Vicente MD PCP - General 04/16/15 [facility] [address] [place] [address] documented as of this encounter
--- OUTSIDE RECORDS SUMMARY | 2022-05-22 08:16 | XMS_ITS | Encounter Summary ---
:1945 Author Organization [facility] [place] [address] Care Team Providers Name Role Phone Lovely Vicente MD Primary Care Provider Encounter Details Date Type Department Care Team Description 11/07/2019 [place] Visit Cardiology at [facility] Danette Maxwell (arteriosclerotic heart disease); (TeleHealth) [facility] STACIE Gomes Cardiomyopathy, ischemic; Drive [facility] S/P CABG x 3; [place], [place] MARIA VICTORIA (obstructive sleep apnea) on CPAP [phone] CARDIOLOGY [phone] [place], [place] [address] Social History Tobacco Use Types [...] regurgitation present. 07/07/2019 - 07/21/2019 Zio Patch Plastic Joint Maker The patient had a minimum heart [...] at last check 6. Post-op atrial fibrillation [id number] 7 (CHF, HTN, DM, vascular disease, thromboembolism) Amiodarone discontinued Continue coumadin INR managed by PCP 7. PAD 08/06/2017: Right 1st, 2nd, 3rd toe amputation 08/11/2017: Left??femoral arterial access, RLE??angiogram, Balloon angioplasty of R PT with Eleazar 2.5 x 80 10/25/2017: right popliteal-pedal bypass at [facility] Continue Coumadin 8. Hypothyrodism S/p thyroidectomy [...] Zulma Dolan MD [facility] [place], [place] [address] (Wo rk) 05/28/2022 Laboratory Appointment Lab 05/28/2022 Office Visit Cardiology Zulma Dolan MD [facility] [place] [address] Liz Poole PA [facility] [place] [address] 06/10/2022 Office Visit Dermatology Laura Scherer MD [facility] DR [address] [place], [place] [address] (Wo rk) documented as of this encounter Visit Diagnoses Diagnosis ASHD (arteriosclerotic heart disease) Coronary atherosclerosis of unspecified type of vessel, [place] or graft Cardiomyopathy, ischemic Other specified forms of chronic ischemi c heart disease S/P CABG x 3 Postsurgical aortocoronary bypass status MARIA VICTORIA (obstructive sleep apnea) on CPAP Obstructive sleep apnea (adult) (pediatr ic) documented in this encounter Care Teams Diet Counselor Relationship Specialty Start Date End Date Lovely Vicente MD PCP - General 04/16/[address] [place], [place] [address] documented as of this encounter
--- OUTSIDE RECORDS SUMMARY | 2022-05-22 08:16 | XMS_ITS | Encounter Summary ---
:1945 [place] [address] Care Team Providers Name Role Phone Lovely Vicente MD Primary Care Provider Encounter Details Date Type Department Care Team Description 03/20/2021 Telephone Neurology at [facility] Hugo Gaston MD [facility] [place] [address] [place] [address] [phone] (Wo rk) Social History Tobacco Use Types [...] Gaston MD Department of Neurology Pager # [phone] documented in this encounter Plan of Treatment Upcoming Encounters Date Type Specialty Care Team Description 05/28/2022 Appointment Cardiology Zulma Dolan MD [facility] [place], [place] [address] (Wo rk) 05/28/2022 Laboratory Appointment Lab 05/28/2022 Office Visit Cardiology Zulma Dolan MD [facility] [place] [address] Liz Poole PA [facility] [place] [address] 06/10/2022 Office Visit Dermatology Laura Scherer MD [facility] [address] [place], [place] [address] (Wo rk) documented as of this encounter Visit Diagnoses Not on filedocumented in this encounter Care Teams Investment Advisor Relationship Specialty Start Date End Date Lovely Vciente MD PCP - General 04/16/[address] [place] [address] documented as of this encounter
--- OUTSIDE RECORDS SUMMARY | 2022-05-22 08:16 | XMS_ITS | Encounter Summary ---
:1945 Author Organization [facility] [place] [address] Care Team Providers Name Role Phone Lovely Vicente MD Primary Care Provider Reason for Referral Diagnostic Test (Routine) - Closed Specialty Diagnoses / Procedures Referred By Contact Refer red To Contact Cardiology Diagnoses Chronic systolic heart failure Danette Maxwell APRN [facility] Non-Inv Card Lab Procedures Echocardiogram Transthoracic(Leb) [facility] [place] [address] [place] [address] Referral ID Status Reason Start Date Expiration Date Visits V isits Requested Authorized [id number] Closed Specialty 07/17/2019 09/14/2019 1 1 Service Requested Reason for Visit Diagnostic Test (Routine) - Closed Specialty Diagnoses / Procedures Referred By Contact Refer red To Contact Cardiology Diagnoses Chronic systolic heart failure Danette Maxwell APRN [facility] Non-Inv Card Lab Procedures Echocardiogram Transthoracic(Leb) [facility] [place] [address] [place] [address] Referral ID Status Reason Start Date Expiration Date Visits V isits Requested Authorized [id number] Closed Specialty 07/17/2019 09/14/2019 1 1 Service Requested Encounter Details Date Type Department Care Team Description 07/28/2019 Hospital Encounter Non-Invasive Chronic s ystolic heart [place] [address] Social History Tobacco Use Types Packs/Day [...] Dolan MD [facility] [address] [place], [place] [address] (Wo rk) 05/28/2022 Laboratory Appointment Lab 05/28/2022 Office Visit Cardiology Zulma Dolan MD [facility] [place] [address] Liz Poole PA [facility] [place] [address] 06/10/2022 Office Visit Dermatology Laura Scherer MD [facility] [address] [place], [place] [address] (Wo rk) documented as of [...] Mccollum ? (Age): 1945(74y) Med Rec#: ? [id number] ?Sex: ?M ? Site Loc: ? [facility] ?Ht / Wt: ??172(cm)/81(kg) Pt. Loc: ?Echo Lab ?BSA: ?1.94 Study Date: ?? 07/28/2019 ?Pt. Type: Outpatient Tape: ? Referring: MARY ELLEN Reading: Ifeanyi Truong ([id number]) Cooky Packer: Fadumo Flanagan RDCS, FASE Diagnosis: *Chronic systolic [...] E-wave Vmax ?1 ?m/sec ? MV deceleration uxbm693.5 ? msec ? MV A-wave Vmax ?1 [...] ? Mid-Inferior ?Hypokinetic ? Mid-Inferoseptal ?Normal ? [place]-Septal ? Normal ? [place]-Anterior ? Hypokinetic ? [place]-Lateral ?Normal ? [place]-Inferior ? Akinetic ? [place]-Tip ?Hypokinetic ? This report has been electronically sign ed by: _ Ifeanyi Truong M.D. ? 07/28/2019 0 8:38:01 Images reviewed and interpretation verif ied [facility] Cardiac Ultrasound Laboratory Procedure Note Ifeanyi Truong MD - 07/28/2019Formatt ing of this note might be different from the original. Procedure: Transthoracic Echocardiogram Patient: NATALYA MCBRIDE(Age): [birth year]74y) Med Rec#: [id number] Sex: M Site Loc: [facility] Ht / Wt: 172(cm)/81(kg) Pt. Loc: Echo Lab BSA: 1.94 Study Date: 07/28/2019 Pt. Type: Outpati ent Tape: Referring: MARY ELLEN Reading: Ifeanyi Truong ([id number]) Cooky Packer: Fadumo Flanagan [place], [facility] Diagnosis: *Chronic systolic (congestive) heart fa [...] MV E-wave Vmax 1 m/sec MV deceleration rouc739.5 msec MV A-wave Vmax 1 m/sec MV [...] Normal Mid-Posterolateral Normal Mid-Inferior Hypokinetic Mid-Inferoseptal Normal [place]-Septal Normal [place]-Anterior Hypokinetic [place]-Lateral Normal [place]-Inferior Akinetic [place]-Tip Hypokinetic This report has been electronically sign ed by: _ Ifeanyi Truong M.D. 07/28/2019 08:38:0 1 Images reviewed and interpretation elvie hwang [facility] Cardiac Ultrasound Laboratory Danette A Hans QUINONES [...] documented in this encounter Care Teams Wheat Grower Relationship Specialty Start Date End Date Lovely Vicente MD PCP - General 04/16/[address] [place] [address] documented as of this encounter
--- OUTSIDE RECORDS SUMMARY | 2022-05-22 08:16 | XMS_ITS | Encounter Summary ---
:1945 Author Organization [facility] [place] [address] Care Team Providers Name Role Phone Lovely Vicente MD Primary Care Provider Reason for Visit Reason Onset Date Comments Follow-up 07/13/2018 amiodarone discontin ued Encounter Details Date Type Department Care Team Description 07/13/2018 Telephone Cardiology at [facility] Martha Comer, Follow-up (amiodarone [facility] RN discontin ued) [place] [address] Social History Tobacco Use Types Packs/Day [...] RN - 07/13/2018 8:57 AM EST Per PERITONEAL DIALYSIS REGISTERED NURSE Hans call placed to the home number for the pt. confirmed that the pt is still taking the amiodarone. Pt is to stop the amiodarone. Pt taking it for post op a-fib, therapy was supposed to be for 30 days. Message given to his . She will give him the message and will have him call with any questions. Call placed to the [facility] pharmacy in [place] to discontinue it there as well. Med list updated. documented in this encounter Plan of Treatment Upcoming Encounters Date Type Specialty Care Team Description 05/28/2022 Appointment Cardiology Zulma Dolan MD [facility] [address] [place], [place] [address] (Wo rk) 05/28/2022 Laboratory Appointment Lab 05/28/2022 Office Visit Cardiology Zulma Dolan MD [facility] [place] [address] Liz Poole PA [facility] [place] [address] 06/10/2022 Office Visit Dermatology Laura Scherer MD [facility] [address] [place], [place] [address] (Wo rk) documented as of this encounter Visit Diagnoses Not on filedocumented in this encounter Care Teams Consultant Education Relationship Specialty Start Date End Date Lovely Vicente MD PCP - General 04/16/[address] [place] [address] documented as of this encounter
--- OUTSIDE RECORDS SUMMARY | 2022-05-22 08:16 | XMS_ITS | Encounter Summary ---
:1945 Author Organization [facility] [place] [address] Care Team Providers Name Role Phone Lovely Vicente MD Primary Care Provider Reason for Referral Diagnostic Test (Routine) - Specialty Diagnoses / Procedures Referred By Contact Refer red To Contact Cardiology Diagnoses Chronic systolic heart failure Danette Maxwell APRN [facility] Non-Inv Card Lab Procedures Echocardiogram Transthoracic(Leb) [facility] [place] [phone] [place] [address] Referral ID Status Reason Start Date Expiration Visits Visits Date Requested Authorized [id number] Specialty 08/15/2018 08/15/2018 1 1 Service Requested Reason for Visit Diagnostic Test (Routine) - Specialty Diagnoses / Procedures Referred By Contact Nawaf owen To Contact Cardiology Diagnoses Chronic systolic heart failure Danette Maxwell APRN [facility] Non-Inv Card Lab Procedures Echocardiogram Transthoracic(Leb) [facility] [place] [address] [place] [address] Referral ID Status Reason Start Date Expiration Visits Visits Date Requested Authorized [id number] Specialty 08/15/2018 08/15/2018 1 1 Service Requested Encounter Details Date Type Department Care Team Description 08/15/2018 Hospital Encounter Non-Invasive Danette Mxawell Chron ic systolic Cardiology Lab Barbara Gomes APRN heart failure [facility] [place] [address] [place] [phone] [address] (Work) [phone] Social History Tobacco Use Types Packs/Day Years [...] Zulma Dolan MD [facility] [place], [place] [address] (Wo rk) 05/28/2022 Laboratory Appointment Lab 05/28/2022 Office Visit Cardiology Zulma Dolan MD [facility] [place] [address] Liz Poole PA [facility] [place] [address] 06/10/2022 Office Visit Dermatology Laura Scherer MD [facility] [address] [place], [place] [address] (Wo rk) documented as [...] Mccollum ? (Age): 1945(73y) Med Rec#: ? [id number] ?Sex: ?M ? Site Loc: ? [facility] ?Ht / Wt: ??172(cm)/81(kg) Pt. Loc: ?Echo Lab ?BSA: ?1.94 Study Date: ?? 08/15/2018 ?Pt. Type: Outpatient Tape: ? Referring: MARY ELLEN Reading: Scott Ortega ([id number]) Assistant At Surgery: Laura Sargent Diagnosis: *Chronic systolic (congestive) heart [...] E-wave Vmax ?1.2 ?m/sec ? MV deceleration eyfz502.4 ? msec ? MV A-wave Vmax ?0.7 [...] ? Mid-Inferior ?Hypokinetic ? Mid-Inferoseptal ?Hypokinetic ? [place]-Septal ? Akinetic ? [place]-Anterior ? Hypokinetic ? [place]-Lateral ?Akinetic ? [place]-Inferior ? Hypokinetic ? [place]-Tip ?Akinetic ? This report has been electronically sign ed by: _ Scott Ortega M.D. ? 08/15/2018 08:17:26 Images reviewed and interpretation ver ied [facility] Cardiac Ultrasound Laboratory Procedure Note Scott Ortega MD - 08/15/2018Format ting of this note might be different from the original. Procedure: Transthoracic Echocardiogram Patient: NATALYA MCBRIDE(Age): [birth year]73y) Med Rec#: [id number] Sex: M Site Loc: [facility] Ht / Wt: 172(cm)/81(kg) Pt. Loc: Echo Lab BSA: 1.94 Study Date: 08/15/2018 Pt. Type: Outpati ent Tape: Referring: MARY ELLEN Reading: Scott Ortega ([id number]) Assistant At Surgery: Laura Sargent Diagnosis: *Chronic systolic (congestive) heart [...] MV E-wave Vmax 1.2 m/sec MV deceleration thde948.4 msec MV A-wave Vmax 0.7 m/sec MV [...] Akinetic Mid-Posterolateral Akinetic Mid-Inferior Hypokinetic Mid-Inferoseptal Hypokinetic [place]-Septal Akinetic [place]-Anterior Hypokinetic [place]-Lateral Akinetic [place]-Inferior Hypokinetic [place]-Tip Akinetic This report has been electronically sign ed by: _ Scott Ortega M.D. 08/15/2018 08:17: 26 Images reviewed and interpretation verif ied [facility] Cardiac Ultrasound Laboratory Danette A Hans COLOR SPECIALIST ECHO ORDERABLES documented in this encounter [...] Routine documented in this encounter Care Teams Material Planner Relationship Specialty Start Date End Date Lovely Vicente MD PCP - General 04/16/[address] [place] [address] documented as of this encounter
--- OUTSIDE RECORDS SUMMARY | 2022-05-22 08:16 | XMS_ITS | Encounter Summary ---
:1945 Author Organization [facility] [place] [address] Care Team Providers Name Role Phone Lovely Vicente MD Primary Care Provider Encounter Details Date Type Department Care Team Description 07/28/2019 Office Visit Cardiology at [facility] Danette Maxwell Chronic systolic heart failu re; [facility] A, STACIE ASHD (arteriosclerotic heart disease); Drive [facility] S/P CABG x 3; [place], [place] MARIA VICTORIA (obstructive sleep apnea) on CPAP; [phone] CARDIOLOGY Mixed hyperlipidemia [phone] [place], [place] [address] Social History Tobacco Use Types [...] in this encounter Progress Notes Danette Maxwell, DNA SEQUENCING ASSOCIATE - 07/28/2019 9:40 AM EST Images from [...] regurgitation present. 07/07/2019 - 07/21/2019 Zio Patch Floral Assistant The patient had a minimum heart [...] K+ 4.5 today 6. Post-op atrial fibrillation [id number] (CHF, HTN, DM, vascular disease, thromboembolism) [...] advised: Refer to EP (Dr. Mcelroy in [place]) 5. Heart Failure Clinic follow up scheduled for: 3 months with proBNP and BMP Danette Maxwell APRN 07/28/2019 documented in this encounter Plan of Treatment Upcoming Encounters Date Type Specialty Care Team Description 05/28/2022 Appointment Cardiology Zulma Dolan MD [facility] [place], [place] [address] (Wo rk) 05/28/2022 Laboratory Appointment Lab 05/28/2022 Office Visit Cardiology Zulma Dolan MD [facility] [place] [address] Liz Poole PA [facility] [place] [address] 06/10/2022 Office Visit Dermatology Laura Scherer MD [facility] DR [address] [place], [place] [address] (Wo rk) documented as of this encounter Results (ABNORMAL) Basic Metabolic Panel (non-fasting) (07/28/2019 8:36 AM EST) P athologist Signature Glucose Lvl 153 65 - 199 [facility] mg/dL [facility] LABOR[facility]ORY Comment: Diabetes: [...] LABORATORY Estimated GFR 70 >=60 mL/min/1.73 m?? [facility] LABORATORY Comment: The eGFR was calculated using the CKD-EP I equation. As with all creatinine based estimates of kidney function, eGFR values calculated with the CKD-EPI equation are not accurate in patients wi th acute kidney failure, extremes of body mass or the acutely ill. http://[employer]/[facility] eGFR 81 >=60 mL/min/1.73 m?? [facility] LABORATORY Comment: The eGFR was calculated using the CKD-EP I equation. As with all creatinine based estimates of kidney function, eGFR values calculated with the CKD-EPI equation are not accurate in patients wi th acute kidney failure, extremes of body mass or the acutely ill. http://[employer]/[facility] ADAnkf Specimen Anatomical Collection Method Collection Time Receive d Time (Source) Location / / Volume Laterality Blood specimen 07/28/2019 8:36 AM 020 8:46 (specimen) EST AM EST Resulting Agency Comment Spec In Lab Danette Maxwell APRN CHEMISTRY ORDERABLES Performing Organization Address City/State/ZIP Code Phon e Number [address] (ABNORMAL) pro-Brain Natriuretic Peptide (07/28/2019 8:36 AM EST) athologist Signature ProBNP 647 (H) <=125 pg/mL [facility] LABORATORY Specimen Anatomical Collection Method Collection Time Receive d Time (Source) Location / / Volume Laterality Blood specimen 07/28/2019 8:36 AM 020 8:46 (specimen) EST AM EST Resulting Agency Comment Spec In Lab Danette Maxwell APRN CHEMISTRY ORDERABLES Performing Organization Address City/[facility]/[place] [address] documented in this encounter Visit Diagnoses Diagnosis Chronic systolic heart failure ASHD (arteriosclerotic heart disease) Coronary atherosclerosis of unspecified type of vessel, [place] or graft S/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
--- OUTSIDE RECORDS SUMMARY | 2022-05-22 08:16 | XMS_ITS | Encounter Summary ---
:1945 Author Organization [facility] [place] [address] Care Team Providers Name Role Phone Lovely Vicente MD Primary Care Provider Encounter Details Date Type Department Care Team Description 04/18/2018 Laboratory Appointment Lab 3L [facility] [place] [phone] Social History Tobacco Use Types Packs/Day Years [...] MD [facility] [place], [place] [address] (Wo rk) 05/28/2022 Laboratory Appointment Lab 05/28/2022 Office Visit Cardiology Zulma Dolan MD [facility] [place] [address] Liz Poole PA [facility] [place] [address] 06/10/2022 Office Visit Dermatology Laura Scherer MD [facility] ER DR [address] [place], [place] [address] (Wo [...] LABORATORY Total 0.7 0.2 - 1.3 [employer] Bilirubin mg/dL [facility] [...] Organization Address City/State/[place] [address] TSH (04/18/2018 9:19 AM EDT) athologist Signature TSH 1.77 0.27 - 4.20 [facility] mlU/ML [facility] LABORAT[facility] Specimen Anatomical Collection Method Collection Time Receive d Time (Source) Location / / Volume Laterality Blood specimen Venous Draw / 04/18/2018 9:19 AM 2017 9:44 (specimen) Unknown EDT AM EDT Resulting Agency Comment Spec In Lab Danette Maxwell APRN CHEMISTRY ORDERABLES Performing Organization Address City/State/[place] [address] (ABNORMAL) Basic Metabolic Panel (non-fasting) (04/18/2018 9:19 AM EDT) athologist Signature Glucose Lvl 167 65 - 199 [facility] mg/dL [facility] LABORATORY [...] of body mass or the acutely ill. http://[employer]/[facility]MCnkf eGFR 70 >=60 mL/min/1.73 m?? [facility] LABORATORY Comment: The eGFR was calculated using the CKD-EP I equation. As with all creatinine based estimates of kidney function, eGFR values calculated with the CKD-EPI equation are not accurate in patients wi th acute kidney failure, extremes of body mass or the acutely ill. http://[employer]/DHnkf Specimen Anatomical Collection Method Collection Time Receive d Time (Source) Location / / Volume Laterality Blood specimen 04/18/2018 9:19 AM 018 9:34 (specimen) EDT AM EDT Resulting Agency Comment Spec In Lab Danette Maxwell APRN CHEMISTRY ORDERABLES Performing Organization Address City/[facility]/[place] [address] (ABNORMAL) pro-Brain Natriuretic Peptide (04/18/2018 9:19 AM EDT) P athologist Signature ProBNP 2,199 (H) <=125 [facility] pg/mL [facility] LABOR[facility] Specimen Anatomical Collection Method Collection Time Receive d Time (Source) Location / / Volume Laterality Blood specimen 04/18/2018 9:19 AM 018 9:34 (specimen) EDT AM EDT Resulting Agency Comment Spec In Lab Danette Maxwell APRN CHEMISTRY ORDERABLES Performing Organization Address City/[facility]/[place] [address] documented in this encounter Visit Diagnoses Diagnosis Chronic systolic heart failure documented in this encounter Care Teams [employer] Principal Relationship Specialty Start Date End Date Lovely Vicente MD PCP - General 04/16/[address] [place] [address] documented as of this encounter
--- OUTSIDE RECORDS SUMMARY | 2022-05-22 08:16 | XMS_ITS | Encounter Summary ---
:1945 Author Organization [facility] [place] [address] Care Team Providers Name Role Phone Lovely Vicente MD Primary Care Provider Encounter Details Date Type Department Care Team Description 01/16/2019 Laboratory Appointment Lab 3L [facility] [place] [address] Social History Tobacco Use Types Packs/Day Years [...] MD [facility] er [place], [place] [address] (Wo rk) 05/28/2022 Laboratory Appointment Lab 05/28/2022 Office Visit Cardiology Zulma Dolan MD [facility] [place] [address] Liz Poole PA [facility] [place] [address] 06/10/2022 Office Visit Dermatology Laura Scherer MD [facility] ER [address] [place], [place] [address] (Wo rk) documented as of [...] Organization Address City/State/[place] [address] (ABNORMAL) Basic Metabolic Panel (non-fasting) (01/16/2019 7:49 AM EDT) athologist Signature Glucose Lvl 105 65 - 199 [facility] mg/dL [facility] [...] of body mass or the acutely ill. http://[employer]/OneRiotnkf eGFR 79 >=60 mL/min/1.73 m?? [facility] LABORATORY Comment: The eGFR was calculated using the CKD-EP I equation. As with all creatinine based estimates of kidney function, eGFR values calculated with the CKD-EPI equation are not accurate in patients wi th acute kidney failure, extremes of body mass or the acutely ill. http://[employer]/OneRiotnkf Specimen Anatomical Collection Method Collection Time Receive d Time (Source) Location / / Volume Laterality Blood specimen 01/16/2019 7:49 AM 019 7:55 (specimen) EDT AM EDT Resulting Agency Comment Spec In Lab Danette Maxwell APRN CHEMISTRY ORDERABLES Performing Organization Address City/State/[place] [address] documented in this encounter Visit Diagnoses Diagnosis Chronic systolic heart failure documented in this encounter Care Teams Group Rooms Coordinator Relationship Specialty Start Date End Date Lovely Vicente MD PCP - General 04/16/[address] [place] [address] documented as of this encounter
--- OUTSIDE RECORDS SUMMARY | 2022-05-22 08:16 | XMS_ITS | Encounter Summary ---
:1945 Author Organization [facility] [place] [address] Care Team Providers Name Role Phone Lovely Vicente MD Primary Care Provider Encounter Details Date Type Department Care Team Description 04/16/2021 Laboratory Appointment Lab 3L [facility] [place] [address] Social History Tobacco Use Types Packs/Day Years [...] Dolan MD [facility] er [place], [place] [address] (Wo rk) 05/28/2022 Laboratory Appointment Lab 05/28/2022 Office Visit Cardiology Zulma Dolan MD [facility] [place] [address] Liz Poole PA [facility] [place] [address] 06/10/2022 Office Visit Dermatology Laura Scherer MD [facility] ER DR [address] [place], [place] [address] (Wo rk) documented as of this encounter [...] Address City/State/[place] [address] (ABNORMAL) Basic Metabolic Panel (non-fasting) (04/16/2021 9:58 AM EDT) athologist Signature Glucose Lvl 77 65 - 199 [facility] mg/dL [facility] Comment: Diabetes: [...] Address City/State/[place] [address] documented in this encounter Visit Diagnoses Diagnosis Chronic systolic heart failure documented in this encounter Care Teams Water Treatment Plant Repairer Relationship Specialty Start Date End Date Lovely Vicente MD PCP - General 04/16/[address] [place] [address] documented as of this encounter
--- OUTSIDE RECORDS SUMMARY | 2022-05-22 08:16 | XMS_ITS | Encounter Summary ---
:1945 [place] [address] Care Team Providers Name Role Phone Lovely Vicente MD Primary Care Provider Encounter Details Date Type Department Care Team Description 08/15/2018 Laboratory Appointment Lab [facility]L [facility] [place] [address] Social History Tobacco Use Types Packs/Day [...] Zulma Dolan MD [facility] er [place], [place] [address] (Wo rk) 05/28/2022 Laboratory Appointment Lab 05/28/2022 Office Visit Cardiology Zulma Dolan MD [facility] [place] [address] Liz Poole PA [facility] [place] [address] 06/10/2022 Office Visit Dermatology Laura Scherer MD [facility] ER DR TE[address]-DERMAT [place], [place] [address] (Wo rk) documented as of this encounter Procedures Procedure Name Priority Date/Time Associated Diagnosis Comme nts PROTHROMBIN TIME Routine 08/15/2018 8:04 AM Resul ts for this EST procedure are i n the results section. documented in this encounter Results (ABNORMAL) Prothrombin Time (08/15/2018 8:04 AM EST) P athologist Signature PT 24.0 (H) 9.4 - 12.5 [facility] LABORATORY INR 2.1 [facility] [...] City/State/ZIP [place] [address] documented in this encounter Visit Diagnoses Not on filedocumented in this encounter Care Teams Cst Relationship Specialty Start Date End Date Lovely Vicente MD PCP - General 04/16/[address] [place] [address] documented as of this encounter
--- OUTSIDE RECORDS SUMMARY | 2022-05-22 08:16 | XMS_ITS | Encounter Summary ---
:1945 Author Organization [facility] [place] [address] Care Team Providers Name Role Phone Lovely Vicente MD Primary Care Provider Encounter Details Date Type Department Care Team Description 02/19/[address] [facility] Ariana Wilder LPN [address] [place] [address] Social History Tobacco Use Types Packs/Day [...] Zulma Dolan MD [facility] [place], [place] [address] (Wo rk) 05/28/2022 Laboratory Appointment Lab 05/28/2022 Office Visit Cardiology Zulma Dolan MD [facility] [place] [address] Liz Poole PA [facility] [place] [address] 06/10/2022 Office Visit Dermatology Laura Scherer MD [facility] DR [address] [place], [place] [address] (Wo rk) documented as of this encounter Visit Diagnoses Not on filedocumented in this encounter Care Teams Pathologist Assistant Relationship Specialty Start Date End Date Lovely Vicente MD PCP - General 04/16/[address] [place] [address] documented as of this encounter
--- OUTSIDE RECORDS SUMMARY | 2022-05-22 08:16 | XMS_ITS | Encounter Summary ---
:1945 Author Organization [facility] Address [facility] [address] Care Team Providers Name Role Phone Lovely Vicente MD Primary Care Provider Encounter Details Date Type Department Care Team Description 01/02/2020 Office Visit Dermatology at Rigoberto Forman ctinic keratoses; Abdelrahman HOOPER MD History of melanoma; [address] [facility] History of dysplastic nevus; [place] [address] Multiple benign nevi; [phone] [facility] Seborrheic yossi [place]; RD-DERMATOLGY Skin exam for malignant neoplasm [place], [place] [address] Social History Tobacco Use Types [...] Zulma Dolan MD [facility] [address] [place], [place] [address] (Wo lissa) 05/28/2022 Laboratory Appointment Lab 05/28/2022 Office Visit Cardiology Zulma Dolan MD [facility] [place] [address] Liz Poole PA [facility] [place] [address] 06/10/2022 Office Visit Dermatology Laura Scherer MD [facility] [address] [place], [place] [address] (Wo lissa) documented as of [...] skin documented in this encounter Care Teams House Mover Supervisor Relationship Specialty Start Date End Date Lovely Vicente MD PCP - General 04/16/[address] [facility] [address] [place] [address] documented as of this encounter
--- OUTSIDE RECORDS SUMMARY | 2022-05-22 08:16 | XMS_ITS | Encounter Summary ---
:1945 Author Organization [facility] [address] Care Team Providers Name Role Phone Lovely Vicente MD Primary Care Provider Encounter Details Date Type Department Care Team Description 12/07/2021 External Results Administration [facility] [place] [address] Social History Tobacco Use Types Packs/Day [...] [facility] [address] [place] [address] (Wo rk) 05/28/2022 Laboratory Appointment Lab 05/28/2022 Office Visit Cardiology Zulma Dolan MD [facility] [place] [address] Liz Poole PA [facility] [place] [address] 06/10/2022 Office Visit Dermatology Laura Scherer MD [facility] ER DR [address]MAT [place], [place] [address] (Wo rk) documented as of [...] filedocumented in this encounter Care Teams Wafer Fab Technician Relationship Specialty Start Date End Date Lovely Vicente MD PCP - General 04/16/[address] [place] [address] documented as of this encounter
--- OUTSIDE RECORDS SUMMARY | 2022-05-22 08:16 | XMS_ITS | Encounter Summary ---
:1945 Author Organization [place] [address] Care Team Providers Name Role Phone Lovely Vicente MD Primary Care Provider Encounter Details Date Type Department Care Team Description 08/26/2018 Transcribe Orders Laboratory Lovely Vicente, Deferred diagnosis [facility] on axis I [address] [address] [place], [place] [phone] [address] Social History Tobacco Use Types Packs/Day Years [...] Dolan MD [facility] [address] [place], [place] [address] (Wo rk) 05/28/2022 Laboratory Appointment Lab 05/28/2022 Office Visit Cardiology Zulma Dolan MD [facility] [place] [id number] Liz Poole PA [facility] [place] [address] 06/10/2022 Office Visit Dermatology Laura Scherer MD [facility] DR [address] [place], [place] [address] (Wo rk) documented as of this encounter Visit Diagnoses Diagnosis Deferred diagnosis on axis I Other unknown and unspecified cause of m orbidity or mortality documented in this encounter Care Teams Supervisor Home Restoration Service Relationship Specialty Start Date End Date Lovely Vicente MD PCP - General 04/16/15 [facility] [address] [place] [address] documented as of this encounter
--- OUTSIDE RECORDS SUMMARY | 2022-05-22 08:16 | XMS_ITS | Encounter Summary ---
:1945 Author Organization [facility] [place] [address] Care Team Providers Name Role Phone Lovely Vicente MD Primary Care Provider Reason for Visit Reason Comments Skin Check Encounter Details Date Type Department Care Team Description 07/06/2018 Office Visit Dermatology at Selina Garcia, Rigoberto Yarbrough (actinic keratosis); MD SHAY Quick III (seborrheic keratosis); [address] [facility] History of melanoma; [place] [address] Skin exam for malignant neoplasm [phone] [facility]-DERMATOLGY [place], [place] [address] Social History Tobacco Use [...] leg - he had vascular surgery in [facility] while he lost several toes, [...] Dolan MD [facility] Dr [place], [place] [address] (Wo rk) 05/28/2022 Laboratory Appointment Lab 05/28/2022 Office Visit Cardiology Zulma Dolan [place] [address] Liz Poole PA [facility] [place] [address] 06/10/2022 Office Visit Dermatology Laura Scherer MD [facility] [address] [place]LOG[place], [place] [address] (Wo rk) documented as of this encounter Visit Diagnoses Diagnosis AK (actinic keratosis) Actinic keratosis SK (seborrheic keratosis) Other seborrheic keratosis History of melanoma Personal history of malignant melanoma o f skin Skin exam for malignant neoplasm Screening for malignant neoplasm of the skin documented in this encounter Care Teams Climatology Professor Relationship Specialty Start Date End Date Lovely Vicente MD PCP - General 04/16/[address] [place] [address] documented as of this encounter
--- OUTSIDE RECORDS SUMMARY | 2022-05-22 08:16 | XMS_ITS | Encounter Summary ---
:1945 Author Organization [facility] [place] [address] Care Team Providers Name Role Phone Lovely Vicente MD Primary Care Provider Encounter Details Date Type Department Care Team Description 08/15/2018 Office Visit Cardiology at [facility] Danette Maxwell Chronic systolic heart failu re; [facility] A, UPPER TIER Cardiomyopathy, ischemic; [facility] ASCVD (arteriosclerotic card iovascular disease); [place], [place] Essential hypertension; [address] CARDIOLOGY MARIA VICTORIA on CPAP [phone] [place], [place] [address] Social History Tobacco Use Types [...] in this encounter Progress Notes Danette Maxwell, UPPER TIER - 08/15/2018 9:00 AM EST Images from [...] K+ 4.6 today 6. Post-op atrial fibrillation [id number] (CHF, HTN, DM, vascular disease, thromboembolism) [...] [facility] [address] [place] [address] (Wo rk) 05/28/2022 Laboratory Appointment Lab 05/28/2022 Office Visit Cardiology Zulma Dolan MD [facility] [place] [address] Liz Poole PA [facility] [place] [address] 06/10/2022 Office Visit Dermatology Laura Scherer MD [facility] ER DR [address]MAT OLOG[place], [place] [address] (Wo rk) documented as of this encounter Results Lipid Panel (08/15/2018 8:04 AM EST) athologist Signature Chol, Total 75 mg/dL [facility] LABORATORY Comment: Lower Risk: <200 mg/dL Average Risk: 200-239 mg/dL Higher Risk: >rb=108 mg/dL Triglycerides 185 mg/dL [facility] LABOR[facility]ORY Comment: Average Risk/Lower Risk: <150 mg/dL Borderline High Risk: 150-199 mg/dL High Risk: 200-499 mg/dL Very High Risk: >kh=484 mg/dL HDL 32 mg/dL [facility] LABORATORY Comment: Males: ?? Higher Risk: <40 mg/dL Females: ?? HIgher Risk: <50 mg/dL LDL Cholesterol 6 mg/dL [facility] LAB[facility] Comment: Lowest Risk: <100 mg/dL Lower Risk: 100-129 mg/dL Borderline High Risk: 130-159 mg/dL High Risk: 160-189 mg/dL Very High Risk: >in=657 mg/dL Chol/HDL Ratio 2.3 ratio [facility] LAB[facility] Lipid Interpretation See Note [facility] LABORATORY Comment: Lipid management should be guided by a p atient? s ASCVD risk, goals and preferences. ACC/AHA Guidelines recommend high intens ity statin if clinical ASCVD or LDL greater than or equal to 190 mg/dL. http://CRS Electronicsurl.com/OBA-UIL-Whswwlxsg Adults aged 40-75 with LDL 70-189 mg/dL should have their 10 year ASCVD risk estimated with the ACC/AHA ASCVD risk es timator http://tools.acc.org/QIMLO-Jeeh-Kpmkxdhr r/ Statin should be discussed if risk [...] Organization Address City/State/[place] [address] (ABNORMAL) Basic Metabolic Panel (non-fasting) (08/15/2018 8:04 AM EST) P athologist Signature Glucose Lvl 116 65 - 199 [facility] mg/dL [facility] LABORAT[facility] Comment: Diabetes: [...] of body mass or the acutely ill. http://[employer] Buddy Media/[facility]AMInkf eGFR 79 >=60 mL/min/1.73 m?? [facility] LAB[facility] Comment: The eGFR was calculated using the CKD-EP I equation. As with all creatinine based estimates of kidney function, eGFR values calculated with the CKD-EPI equation are not accurate in patients wi th acute kidney failure, extremes of body mass or the acutely ill. http://[employer]/[facility] MIAMInkf Specimen Anatomical Collection Method Collection Time Receive d Time (Source) Location / / Volume Laterality Blood specimen 08/15/2018 8:04 AM 019 8:20 (specimen) EST AM EST Resulting Agency Comment Spec In Lab Danette Maxwell APRN CHEMISTRY ORDERABLES Performing Organization Address City/State/ZIP Code Phon e Number [address] (ABNORMAL) pro-Brain Natriuretic Peptide (08/15/2018 8:04 AM EST) P athologist Signature ProBNP 1,797 (H) <=125 [facility] pg/mL [facility]OR[facility] Specimen Anatomical Collection Method Collection Time Receive d Time (Source) Location / / Volume Laterality Blood specimen 08/15/2018 8:04 AM 019 8:20 (specimen) EST AM EST Resulting Agency Comment Spec In Lab Danette Maxwell APRN CHEMISTRY ORDERABLES Performing Organization Address City/State/[place] [address] documented in this encounter Visit Diagnoses Diagnosis Chronic systolic heart failure Cardiomyopathy, ischemic Other specified forms of chronic ischemi c heart disease ASCVD (arteriosclerotic cardiovascular d isease) Unspecified cardiovascular disease Essential hypertension Unspecified essential hypertension MARIA VICTORIA on CPAP Obstructive sleep apnea (adult) (pediatr ic) documented in this encounter Care Teams Amusement Park Ride Mechanic Relationship Specialty Start Date End Date Lovely Vicente MD PCP - General 04/16/[address] [place] [address] documented as of this encounter
--- OUTSIDE RECORDS SUMMARY | 2022-05-22 08:16 | XMS_ITS | Encounter Summary ---
:1945 Author Organization [facility] [address] Care Team Providers Name Role Phone Lovely Vicente MD Primary Care Provider Encounter Details Date Type Department Care Team Description 08/15/2018 Laboratory Lab 3L [place] Chronic systoli c heart failure; Appointment [facility] ASCVD (ar teriosclerotic cardiovascular disease) [place] [address] Social History Tobacco Use Types [...] MD [facility] er [place], [place] [address] (Wo rk) 05/28/2022 Laboratory Appointment Lab 05/28/2022 Office Visit Cardiology Zulma Dolan MD [facility] [place] [address] Liz Poole PA [facility] [place] [address] 06/10/2022 Office Visit Dermatology Laura Scherer MD [facility] ER DR [address]MAT [place], [place] [address] (Wo rk) documented as [...] Signature Glucose Lvl 116 65 - 199 [facility] mg/dL [facility] LABORATORY Comment: [...] of body mass or the acutely ill. http://RetailerSaver.com/[facility] SULPHURnkf eGFR 79 >=60 mL/min/1.73 m?? [facility] Comment: The eGFR was calculated using the CKD-EP I equation. As with all creatinine based estimates of kidney function, eGFR values calculated with the CKD-EPI equation are not accurate in patients wi th acute kidney failure, extremes of body mass or the acutely ill. http://RetailerSaver.com/[facility]ULPH[facility]nkf Specimen Anatomical Collection Method Collection Time Receive d Time (Source) Location / / Volume Laterality Blood specimen 08/15/2018 8:04 AM 019 8:20 (specimen) EST AM EST Resulting Agency Comment Spec In Lab Danette Maxwell APRN CHEMISTRY ORDERABLES Performing Organization Address City/State/[place] [address] Lipid Panel (08/15/2018 8:04 AM EST) P athologist Signature Chol, Total 75 mg/dL [facility] Comment: Lower Risk: <200 mg/dL Average Risk: 200-239 mg/dL Higher Risk: >bv=825 mg/dL Triglycerides 185 mg/dL [facility] LABORATORY Comment: Average Risk/Lower Risk: <150 mg/dL Borderline High Risk: 150-199 mg/dL High Risk: 200-499 mg/dL Very High Risk: >ft=735 mg/dL HDL 32 mg/dL [facility] LABORATORY Comment: Males: ?? Higher Risk: <40 mg/dL Females: ?? HIgher Risk: <50 mg/dL LDL Cholesterol 6 mg/dL [facility] Comment: Lowest Risk: <100 mg/dL Lower Risk: 100-129 mg/dL Borderline High Risk: 130-159 mg/dL High Risk: 160-189 mg/dL Very High Risk: >bs=802 mg/dL Chol/HDL Ratio 2.[address] [facility] Lipid Interpretation See Note [facility] Comment: Lipid management should be guided by a p atient? s ASCVD risk, goals and preferences. ACC/AHA Guidelines recommend high intens ity statin if clinical ASCVD or LDL greater than or equal to 190 mg/dL. http://[employer] Boundaries Brewing Empire.com/BHS-WAX-Yyddxehzo Adults aged 40-75 with LDL 70-189 mg/dL should have their 10 year ASCVD risk estimated with the ACC/AHA ASCVD risk es timator http://tools.acc.org/AJVKF-Fmoz-Mklexlli r/ Statin should be discussed if risk [...] Organization Address City/State/[place] [address] (ABNORMAL) pro-Brain Natriuretic Peptide (08/15/2018 8:04 AM EST) athologist Signature ProBNP 1,797 (H) <=125 [facility] pg[facility]mL [facility] Specimen Anatomical Collection Method Collection Time Receive d Time (Source) Location / / Volume Laterality Blood specimen 08/15/2018 8:04 AM 019 8:20 (specimen) EST AM EST Resulting Agency Comment Spec In Lab Danette Maxwell APRN CHEMISTRY ORDERABLES Performing Organization Address City/State/[place] [address] documented in this encounter Visit Diagnoses Diagnosis Chronic systolic heart failure ASCVD (arteriosclerotic cardiovascular d isease) Unspecified cardiovascular disease documented in this encounter Care Teams Child Support Specialist Relationship Specialty Start Date End Date Lovely Vicente MD PCP - General 04/16/[address] [place] [address] documented as of this encounter
--- OUTSIDE RECORDS SUMMARY | 2022-05-22 08:16 | XMS_ITS | Encounter Summary ---
:1945 Author Organization [facility] [place] [address] Care Team Providers Name Role Phone Lovely Vicente MD Primary Care Provider Encounter Details Date Type Department Care Team Description 03/20/2021 Ancillary Procedure Radiology Library [place] [address] [place] [address] [phone] Social History Tobacco Use Types Packs/Day Years [...] Dolan MD [facility] er [place], [place] [address] (Wo rk) 05/28/2022 Laboratory Appointment Lab 05/28/2022 Office Visit Cardiology Zulma Dolan MD [facility] [place] [address] Liz Poole PA [facility] [place] [address] 06/10/2022 Office Visit Dermatology Laura Scherer MD [facility] ER DR [address] [place], [place] [address] (Wo rk) documented as [...] Organization Address City/State/ZIP Code Phon e Number [place], [place] documented in this encounter Visit Diagnoses Not on filedocumented in this encounter Care Teams Exceptional Student Education Aide Relationship Specialty Start Date End Date Lovely Vicente MD PCP - General 04/16/[address] [place] [address] documented as of this encounter
--- OUTSIDE RECORDS SUMMARY | 2022-05-22 08:16 | XMS_ITS | Encounter Summary ---
:1945 Author Organization [facility] [place] [address] Care Team Providers Name Role Phone Lovely Vicente MD Primary Care Provider Reason for Visit Reason Comments Establish Care Atrial Fibrillation Congestive Heart Failure Cardiomyopathy Encounter Details Date Type Department Care Team Description 09/06/2019 [facility] Ischemic cardiomyopathy Osvaldo STRANGE [address] [place], [place] C[place]Y [place]PT. [address] [place] [address] [phone] Social History Tobacco Use Types Packs/Day Years [...] today For any questions, call my office: [phone] To access your health care information, go to the web at: [email or web address] (you will need to register) For educational materials: [email or web address] Karel TRAMMELL.[facility], Clinical Cardiac Electrophysiology, [facility], [facility] A Healthy Heart: After Your Visit [...] least 2 servings of fish a week. [place], mackerel, mcfadden, sardines, and chunk light tuna [...] irregular heartbeat. After you call 911, the four slide operator may tell you to chew 1 [...] more? Visit our health information library at [email or web address]. You can also view health information on AWID, your personal patient account. Log in or sign up today. Enter F075 in the search box to learn more about A Healthy Heart: After Your Visit. ?? [phone] [employer] documented in this encounter Progress Notes Karel Mcelroy MD - 09/06/2019 2:20 PM EST Images from the original note were not included. Section of Cardiology/Cardiac Electrophysiology [facility] Clinical Cardiac Electrophysiology Consult Patient ID Don Fatima 1945 [id number] Don Fatima is referred to the EP clinic by Danette Maxwell APRN PhD Chief Complaint Dyspnea on exertion Ischemic cardiomyopathy History This is a 74 y.o. male following up/being seen in clinic for evaluation for ongoing anticoagulation. He has a Qkpad0Yamn score of ~ 6-7. 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, can [...] on phone: None Gets together: None Attends congregational service: None Active member of club or [...] reviewed the ECG: sinus rhythm, 72 bpm, AK 140 ms, QRS 100 ms, QT 400 [...] EP clinic KAREL MCELROY MD Cardiac Electrophysiology [facility] T: [phone] F: [phone] 35 minutes of this 40 minute encounter were spent in counselling, as described above Cc: MD Danette Cr APRN PhD Janett Espino DPM documented in this encounter Plan of Treatment Upcoming Encounters Date Type Specialty Care Team Description 05/28/2022 Appointment Cardiology Zulma Dolan MD [facility] [place], [place] [address] (Wo rk) 05/28/2022 Laboratory Appointment Lab 05/28/2022 Office Visit Cardiology Zulma Dolan MD [facility] [place] [address] Liz Poole PA [facility] [place] [address] 06/10/2022 Office Visit Dermatology Laura Scherer MD [facility] [address]DERMAT OGY [place], [place] [address] (Wo rk) documented as of [...] 446 ms MUSE SYSTEM (Bezet) Calculated P [place] 37 degrees MUSE SYSTEM Calculated R [place] -23 degrees MUSE SYSTEM Calculated T [place] 116 degrees MUSE SYSTEM INTERPRETATION Normal sinus rhythm MUSE SYSTEM Inferior infarct (cited on or before 25-JAN-2013) ST & T wave abnormality, consider anterolateral ischemia Abnormal ECG When compared with ECG of 19-AUG-2017 10:23, No significant change was found Confirmed by MD Cande, Michael ([id number]) on 09/08/2019 10:22:4 7 AM Specimen Anatomical [...] disease documented in this encounter Care Teams Cuff Stitcher Relationship Specialty Start Date End Date Lovely Vicente MD PCP - General 04/16/[address] [place] [address] documented as of this encounter
--- OUTSIDE RECORDS SUMMARY | 2022-05-22 08:16 | XMS_ITS | Encounter Summary ---
:1945 [place] [address] Care Team Providers Name Role Phone Lovely Vicente MD Primary Care Provider Reason for Visit Reason Comments Skin Cancer Examination Encounter Details Date Type Department Care Team Description 03/20/2021 Office Visit Dermatology at [facility] Brennen Rene MD History of melanoma; [facility] History of dysplastic nevus; [address] Multiple benign nevi; [place] [address] [facility] [address] (seborrheic keratosis); [phone] [address]-DERMATOLOGY [place] (actinic keratosis) [place], [place] [address] Social History Tobacco Use Types [...] no SOCIAL HISTORY 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 Last visit at [facility] Derm: 01/02/2020 Medications: Reviewed in [...] FSE; history of Melanoma []Note routed to press secretary [x]Recall has been placed in scheduling system []Appointment scheduled at checkout Scribe attestation: Yoana Pang LPN has performed the documentation for this encounter in the presence of and acting as a scribe for LAURA RENE MD I performed the above scribed service and agree with the accuracy of the documentation in this encounter. Reviewed and signed by: LAURA RENE MD Dermatology [facility] documented in this encounter Plan of Treatment Upcoming Encounters Date Type Specialty Care Team Description 05/28/2022 Appointment Cardiology TrudiZulma Knwoles MD [facility] [place], [place] [address] (Wo rk) 05/28/2022 Laboratory Appointment Lab 05/28/2022 Office Visit Cardiology Zulma Dolan MD [facility] [place] [address] Liz Poole PA [facility] [place] [address] 06/10/2022 Office Visit Dermatology Laura Rene MD [facility] [address] [place], [place] [address] (Wo rk) documented as [...] keratosis documented in this encounter Care Teams Archivist Nonprofit Foundation Relationship Specialty Start Date End Date Lovely Vicente MD PCP - General 04/16/[address] [place] [address] documented as of this encounter
--- OUTSIDE RECORDS SUMMARY | 2022-05-22 08:16 | XMS_ITS | Encounter Summary ---
:1945 Author Organization [employer] [place] [address] Care Team Providers Name Role Phone Lovely Vicente MD Primary Care Provider Reason for Visit Reason Onset Date Comments Other 03/24/2019 cardiac clearance ne eded Encounter Details Date Type Department Care Team Description 03/24/2019 Telephone Cardiology at [facility] Danette Maxwell, Other (cardiac [facility] ABATEMENT WORKER clearance needed) [place] [address] CARDIOLOGY [place], [place] [address] (Wo rk) Social History Tobacco Use Types Packs/Day Years Used Date Former Smoker Cigarettes 3 5 Quit: 07/26/18 69 Smokeless Tobacco: Never Used Alcohol Use Standard Drinks/Week Comments No 0 (1 standard drink = 0.6 oz pure alcoho l) Sex Assigned at Date Recorded Not on file documented as of this encounter Miscellaneous Notes Telephone Encounter - Caim Griffith - 03/24/2019 10:40 AM EDT Leonela from [facility] [place] called requesting cardiac clearance for this patient who is to have a colonoscopy on 04/04/19. He is on anticoagulation and they will need to bridge him. Their phone # [phone], fax# [phone]. Thank you. documented in this encounter Plan of Treatment Upcoming Encounters Date Type Specialty Care Team Description 05/28/2022 Appointment Cardiology Zulma Dolan MD [facility] [place], [place] [address] (Wo rk) 05/28/2022 Laboratory Appointment Lab 05/28/2022 Office Visit Cardiology Zulma Dolan MD [facility] [place] [address] Liz Poole PA [facility] [place] [address] 06/10/2022 Office Visit Dermatology Laura Scherer MD [facility] [address] [place], [place] [address] (Wo rk) documented as of this encounter Visit Diagnoses Not on filedocumented in this encounter Care Teams Pediatric Oncology Nurse Relationship Specialty Start Date End Date Lovely Vicente MD PCP - General 04/16/[address] [place] [address] documented as of this encounter
--- OUTSIDE RECORDS SUMMARY | 2022-05-22 08:17 | XMS_ITS | Encounter Summary ---
:1945 Author Organization [facility] [place] [address] Care Team Providers Name Role Phone Lovely Vicente MD Primary Care Provider Encounter Details Date Type Department Care Team Description 08/30/2017 [facility] ischemia [facility] [address] [place] VASCULAR SURGERY [address] [place] [address] [phone] Social History Tobacco Use Types Packs/Day Years [...] Smith MD - 08/30/2017 2:00 PM EST [facility] staff: Patient returns. He [...] Zulma Dolan MD [facility] [address] [place], [place] [address] (Wo rk) 05/28/2022 Laboratory Appointment Lab 05/28/2022 Office Visit Cardiology Zulma Dolan MD [facility] [place] [address] Liz Poole PA [facility] [place] [address] 06/10/2022 Office Visit Dermatology Laura Scherer MD [facility] [address] [place], [place] [address] (Wo rk) documented as of this encounter Visit Diagnoses Diagnosis Critical lower limb ischemia Unspecified circulatory system disorder documented in this encounter Care Teams [employer] Relationship Specialty Start Date End Date Lovely Vicente MD PCP - General 04/16/[address] [place] [address] documented as of this encounter
--- OUTSIDE RECORDS SUMMARY | 2022-05-22 08:17 | XMS_ITS | Encounter Summary ---
:1945 Author Organization [facility] [place] [address] Care Team Providers Name Role Phone Lovely Vicente MD Primary Care Provider Encounter Details Date Type Department Care Team Description 09/06/2017 Orders Only Vascular Surgery at [facility] Ninfa Clark, [facility] [place] [address] Social History Tobacco Use Types Packs/Day [...] MD [facility] [place] [address] (Wo rk) 05/28/2022 Laboratory Appointment Lab 05/28/2022 Office Visit Cardiology Zulma Dolan MD [facility] [place] [address] Liz Poole PA [facility] [place] [address] 06/10/2022 Office Visit Dermatology Laura Scherer MD [facility] [address] [place], [place] [address] (Wo rk) documented as of this encounter Visit Diagnoses Not on filedocumented in this encounter Care Teams Gis Scientist Relationship Specialty Start Date End Date Lovely Vicente MD PCP - General 04/16/[address] [place] [address] documented as of this encounter
--- OUTSIDE RECORDS SUMMARY | 2022-05-22 08:17 | XMS_ITS | Encounter Summary ---
:1945 Author Organization [facility] [place] [address] Care Team Providers Name Role Phone Lovely Vicente MD Primary Care Provider Reason for Referral Consultation (Routine) - Specialty Diagnoses / Procedures Referred By Contact Refer red To Contact [facility] Diagnoses Atheroembolism of foot, right Delayed surgical wound healing, subsequent encounter Aurelia Rivera PA [address] [facility] [place] [address] Referral ID Status Reason Start Date Expiration Date Visits V isits Requested Authorized [id number] Consult, 09/08/2017 03/07/2018 1 1 Test & Treat Reason for Visit Reason Comments Wound Check My foot hurts Encounter Details Date Type Department Care Team Description 09/07/2017 Office Visit Vascular Surgery at MiguelAurelia PA Atheroembolism of foot, right; [facility] Delayed surgical wound healing, subseque nt encounter [facility] [place] [address] [phone] Social History Tobacco Use Types Packs/Day Years [...] at home for VAC dressing changes from [facility]. Since his last visit his right forefoot wound VAC care has improved and [facility] have maintained a better seal [...] Mcknight MD at [facility] OR Social Hx: Social History Substance [...] Zulma Dolan MD [facility] [place], [place] [address] (Wo rk) 05/28/2022 Laboratory Appointment Lab 05/28/2022 Office Visit Cardiology Zulma Dolan MD [facility] [place] [address] Liz Poole PA [facility] [place] [address] 06/10/2022 Office Visit Dermatology Laura Scherer MD [facility] [address] [place], [place] [address] (Wo rk) Scheduled Referrals Name Type Priority Associated Diagnoses Order S chedule Referral to Wound Outpatient Referral Routine Atheroembolism o f foot, Ordered: Clinic right 09/08/2017 Delayed surgical wound healing, subsequent encounter documented as of this encounter Visit Diagnoses Diagnosis Atheroembolism of foot, right Delayed surgical wound healing, subseque nt encounter documented in this encounter Care Teams Social Services Specialist Relationship Specialty Start Date End Date Lovely Vicente MD PCP - General 04/16/[address] [facility] [address] [place] [address] documented as of this encounter
--- OUTSIDE RECORDS SUMMARY | 2022-05-22 08:17 | XMS_ITS | Encounter Summary ---
:1945 Author Organization [facility] [address] Care Team Providers Name Role Phone Lovely Vicente MD Primary Care Provider Encounter Details Date Type Department Care Team Description 09/16/2017 Hospital [place] [address] Social History Tobacco Use Types Packs/Day [...] Cardiology Zulma Dolan MD [facility] [place], [place] [address] (Wo rk) 05/28/2022 Laboratory Appointment Lab 05/28/2022 Office Visit Cardiology Zulma Dolan MD [facility] [place] [address] Liz Poole PA [facility] [place] [address] 06/10/2022 Office Visit Dermatology Laura Scherer MD [facility] DR [address] [place], [place] [address] (Wo rk) documented as of this encounter Procedures Procedure Name Priority Date/Time Associated Diagnosis Comme [facility] SURGICAL PATHOLOGY Routine 09/16/2017 7:28 AM Res ults for this REPORT EST procedure are i n the results section. documented in this encounter Results Surgical Pathology Report (09/16/2017 7:28 AM EST) Component Value Ref Test Analysis Performed At [facility] Method Time Signature Surgical [id number] ? Location: [facility] Pathology [place] Report The signing pathologist has (i) examined [...] Henrique Flower Verified: ??09/24/2017 ?Pathologist Performed at: ??-[facility] Dept. of Pathology, [place], [place] CLINICAL INFORMATION Specimen Submitted: A - [...] [place] [address] documented in this encounter Visit Diagnoses Not on filedocumented in this encounter Care Teams Outpatient Services Director Relationship Specialty Start Date End Date Lovely Vicente MD PCP - General 04/16/[address] [place] [address] documented as of this encounter
--- OUTSIDE RECORDS SUMMARY | 2022-05-22 08:17 | XMS_ITS | Encounter Summary ---
:1945 Author Organization [facility] [place] [address] Care Team Providers Name Role Phone Lovely Vicente MD Primary Care Provider Reason for Visit Reason Onset Date Comments VNA Calls 08/30/2017 Encounter Details Date Type Department Care Team Description 08/30/2017 Telephone Vascular Surgery at [facility] Cora eRid RN VNA Calls [facility] [place] [address] Social History Tobacco Use Types Packs/Day [...] EST Caller: Alfonso at [facility] [phone] Reason for call: Changing his wound vac [...] MD [facility] [address] [place], [place] [address] (Wo rk) 05/28/2022 Laboratory Appointment Lab 05/28/2022 Office Visit Cardiology Zulma Dolan MD [facility] [place] [address] Liz Poole PA [facility] [place] [address] 06/10/2022 Office Visit Dermatology Laura Scherer MD [facility] DR [address] [place], [place] [address] (Wo rk) documented as of this encounter Visit Diagnoses Not on filedocumented in this encounter Care Teams Renewal Specialist Relationship Specialty Start Date End Date Lovely Vicente MD PCP - General 04/16/[address] [place] [address] documented as of this encounter
--- OUTSIDE RECORDS SUMMARY | 2022-05-22 08:17 | XMS_ITS | Encounter Summary ---
:1945 Author Organization [facility] [place] [address] Care Team Providers Name Role Phone Lovely Vicente MD Primary Care Provider Encounter Details Date Type Department Care Team Description 08/19/2017 Hospital Encounter XRay at [facility] Martha Teague, S/P CABG x [address] [facility] [place] [address] [place] [address] RD [phone] [facility] [place], [place] [address] (Wo rk) Social History [...] Cardiology Zulma Dolan MD [facility] [place], [place] [address] (Wo rk) 05/28/2022 Laboratory Appointment Lab 05/28/2022 Office Visit Cardiology Zulma Dolan MD [facility] [place] [address] Liz Poole PA [facility] [place] [address] 06/10/2022 Office Visit Dermatology Laura Scherer MD [facility] DR [address] [place], [place] [address] (Wo rk) documented as of [...] 2017 EXAMINATION: XR CHEST PA AND LATERAL (BalancedIC) CLINICAL HISTORY: CABG x 3 TECHNIQUE: PA [...] status documented in this encounter Care Teams Styrene Dehydration Reactor Operator Relationship Specialty Start Date End Date Lovely Vicente MD PCP - General 04/16/[address] [place], [place] [address]Y [facility] 1 [place] [address] documented as of this encounter
--- OUTSIDE RECORDS SUMMARY | 2022-05-22 08:17 | XMS_ITS | Encounter Summary ---
:1945 Author Organization [facility] [place] [address] Care Team Providers Name Role Phone Lovely Vicente MD Primary Care Provider Encounter Details Date Type Department Care Team Description 08/25/2017 Telephone Pain Management at [place], [place] [address] Social History Tobacco Use Types Packs/Day [...] Management Center Preauthorization Request Patient: Don Fatima [id number] Fax received from [employer] denying prior authorization for Lidocaine Patches prescribed by Barbra Soares APRN. RX insurance plan: [employer] insurance telephone: [phone] Patient Diagnosis: right foot pain secondary to PVD and ischemia ? Previous medications attempted: Tylenol, Tramadol, Dilaudid Authorization/Reference number: [id number] _x_ denied, provider and patient informed _x_ appeal initiated by provider, patient informed Angeles Rodrigez, RN documented in this encounter Plan of Treatment Upcoming Encounters Date Type Specialty Care Team Description 05/28/2022 Appointment Cardiology Zulma Dolan MD [facility] [place], [place] [address] (Wo rk) 05/28/2022 Laboratory Appointment Lab 05/28/2022 Office Visit Cardiology Zulma Dolan MD [facility] [place] [address] Liz Poole PA [facility] [place] [address] 06/10/2022 Office Visit Dermatology Laura Scherer MD [facility] [address] [place], [place] [address] (Wo rk) documented as of this encounter Visit Diagnoses Not on filedocumented in this encounter Care Teams Production Recorder Relationship Specialty Start Date End Date Lovely Vicente MD PCP - General 04/16/[address] [place] [address] documented as of this encounter
--- OUTSIDE RECORDS SUMMARY | 2022-05-22 08:17 | XMS_ITS | Encounter Summary ---
:1945 Author Organization [facility] [place] [address] Care Team Providers Name Role Phone Lovely Vicente MD Primary Care Provider Reason for Referral Diagnostic Test (Routine) - Closed Specialty Diagnoses / Procedures Referred By Contact Refer red To Contact Cardiology Diagnoses Ischemic cardiomyopathy Acute on chronic systolic congestive heart failure Danette Maxwell APRN [facility] Non-Inv Card Lab Procedures Echocardiogram Transthoracic(Leb) [facility] [place] [address] [place] [address] Referral ID Status Reason Start Date Expiration Date Visits V isits Requested Authorized [id number] Closed Specialty 08/30/2017 08/30/2018 1 1 Service Requested Encounter Details Date Type Department Care Team Description 08/26/2017 Office Visit Cardiology at [facility] Danette Maxwell Ischemic cardiomyopathy; [facility] STACIE Gomes Acute on chronic systolic congestive hea rt failure ; Drive [facility] ASCVD (arteriosclerotic card iovascular disease); [place], [place] PAF (paroxysmal atrial fibrillation); [address] CARDIOLOGY PAD (peripheral artery disease) [phone] [place], [place] [address] Social History Tobacco Use Types Packs/Day Years [...] painful and 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 [...] Zulma Dolan MD [facility] [place], [place] [address] (Wo rk) 05/28/2022 Laboratory Appointment Lab 05/28/2022 Office Visit Cardiology Zulma Dolan MD [facility] [place] [address] Liz Poole PA [facility] [place] [address] 06/10/2022 Office Visit Dermatology Laura Scherer MD [facility] [address] [place], [place] [address] (Wo rk) documented as of this encounter Results ECHOCARDIOGRAM COMPLETE W CONTRAST (10/07/2017 10:23 AM EDT) athologist Signature EF 45 [facility]ART[facility] SYSTEM Anatomical Region Laterality Modality Other Specimen (Source) Anatomical Location Collection Method / Collectio n Time Received Time / Laterality Volume 10/07/2017 Narrative 10/07/2017 11:13 AM EDT Procedure: ?Transthoracic Echocardiogram Patient: ?NATALYA Mccollum ? (Age): 1945(72y) Med Rec#: ? [id number] ?Sex: ?M ? Site Loc: ? [facility] ?Ht / Wt: ??173(cm)/82(kg) Pt. Loc: ?Echo Lab ?BSA: ?1.96 Study Date: ?? 10/07/2017 ?Pt. Type: Outpatient Tape: ? Referring: Danette Maxwell Reading: Iker Cuevas ([id number]) Steel Pickler: Yonathan Bocanegra Diagnosis: *ICD-10-PCS Ischemic cardiomyopathy (I2 [...] E-wave Vmax ?1.2 ?m/sec ? MV deceleration [id number] ?msec ? MV A-wave Vmax ?1 ?m/sec [...] ? Mid-Inferior ?Hypokinetic ? Mid-Inferoseptal ?Hypokinetic ? Columbia-Septal ? Akinetic ? Columbia-Anterior ? Hypokinetic ? [place]-Lateral ?Hypokinetic ? [place]-Inferior ? Hypokinetic ? [place]-Tip ?Akinetic ? This report has been electronically sign ed by: _ Iker Cuevas M.D. ? 10/07/2017 11:12:34 Images reviewed and interpretation [facility] Cardiac Ultrasound Laboratory Procedure Note Iker Cuevas MD - 10/07/2017Formatti ng of this note might be different from the original. Procedure: Transthoracic Echocardiogram Patient: NATALYA Mccollum (Age): [birth year]72y) Med Rec#: [id number] Sex: M Site Loc: [facility] Ht / Wt: 173(cm)/82(kg) Pt. Loc: Echo Lab BSA: 1.96 Study Date: 10/07/2017 Pt. Type: Outpati ent Tape: Referring: Danette Maxwell Reading: Iker Cuevas ([id number]) Steel Pickler: Yonathan Bocanegra Diagnosis: *ICD-10-PCS Ischemic cardiomyopathy (I2 [...] MV E-wave Vmax 1.2 m/sec MV deceleration [id number] msec MV A-wave Vmax 1 m/sec MV [...] Akinetic Mid-Posterolateral Hypokinetic Mid-Inferior Hypokinetic Mid-Inferoseptal Hypokinetic Columbia-Septal Akinetic Columbia-Anterior Hypokinetic Columbia-Lateral Hypokinetic Columbia-Inferior Hypokinetic Columbia-Tip Akinetic This report has been electronically sign ed by: _ Iker Cuevas M.D. 10/07/2017 11:12 :34 Images reviewed and interpretation [facility] Cardiac Ultrasound Laboratory Danette Maxwell APRN ECHO ORDERABLES Basic Metabolic Panel (non-fasting) (08/26/2017 2:00 PM EST) P athologist Signature Glucose Lvl 98 65 - 199 [facility] mg/dL [facility] Comment: Diabetes: >=200 mg/dL plus symp toms BUN 20 10 - 20 mg/dL [facility] Creatinine 1.17 0.80 - [...] 15 mmol/L [facility] Calcium 9.1 8.5 - 10.5 mg/dL [facility] Estimated GFR >60 >=60 [facility] Comment: The reported eGFR should be multiplied b y 1.2 for patients. The MDRD is not an appropriate measure o f renal function for patients with body mass extremes or in patients with acute kidney failure. http://[employer]/DHnkdep http://[employer]/DHMCnkf Specimen Anatomical Collection Method Collection Time Receive d Time (Source) Location / / Volume Laterality Blood specimen 08/26/2017 2:00 PM 018 2:15 (specimen) EST PM EST Resulting Agency Comment Spec In Lab Danette Maxwell APRN CHEMISTRY ORDERABLES Performing Organization Address City/State/ZIP Code Phon e Number [address] (ABNORMAL) pro-Brain Natriuretic Peptide (08/26/2017 2:00 PM EST) P athologist Signature ProBNP 2,373 (H) <=125 [facility] RYAN pg/mL [facility] Specimen Anatomical Collection Method Collection Time Receive d Time (Source) Location / / Volume Laterality Blood specimen 08/26/2017 2:00 PM 018 2:15 (specimen) EST PM EST Resulting Agency Comment Spec In Lab Danette Maxwell APRN CHEMISTRY ORDERABLES Performing Organization Address City/State/[place] [address] documented in this encounter [...] failure documented in this encounter Care Teams Change Room Attendant Relationship Specialty Start Date End Date Lovely Vicente MD PCP - General 04/16/[address] [place] [address] documented as of this encounter
--- OUTSIDE RECORDS SUMMARY | 2022-05-22 08:17 | XMS_ITS | Encounter Summary ---
:1945 Author Organization [facility] [place] [address] Care Team Providers Name Role Phone Lovely Vicente MD Primary Care Provider Encounter Details Date Type Department Care Team Description 10/05/2017 Unscheduled Cardiology at [facility] RONNIE Sin PATIENT NOT SEEN Encounter [facility] Tamiko Martinez MD [facility] [address] CARDIOLOGY DEPT [phone] [place] [address] Social History Tobacco Use Types Packs/Day Years [...] Dolan MD [facility] [address] [place], [place] [address] (Wo rk) 05/28/2022 Laboratory Appointment Lab 05/28/2022 Office Visit Cardiology Zulma Dolan MD [facility] [place] [address] Liz Poole PA [facility] [place] [address] 06/10/2022 Office Visit Dermatology Laura Scherer MD [facility] [address] [place], [place] [address] (Wo rk) documented as of this encounter Visit Diagnoses Diagnosis DH PATIENT NOT SEEN documented in this encounter Care Teams Laser Technician Relationship Specialty Start Date End Date Lovely Vicente MD PCP - General 04/16/[address] [place] [address] documented as of this encounter
--- OUTSIDE RECORDS SUMMARY | 2022-05-22 08:17 | XMS_ITS | Encounter Summary ---
:1945 Author Organization [facility] [place] [address] Care Team Providers Name Role Phone Lovely Vicente MD Primary Care Provider Encounter Details Date Type Department Care Team Description 08/19/2017 Office Visit Vascular Surgery at [place], PAD (peripheral artery [facility]ATIONAL PSYCHOLOGIST disease) [facility] [address] [place], [place] VASCULAR SURGERY [address] [place] [address] [phone] Social History Tobacco Use Types Packs/Day Years [...] Zulma Dolan MD [facility] [place], [place] 0375 (Wo rk) 05/28/2022 Laboratory Appointment Lab 05/28/2022 Office Visit Cardiology Zulma Dolan MD [facility] [place] [address] Liz Poole PA [facility] [place] [address] 06/10/2022 Office Visit Dermatology Laura Scherer MD [facility] [address] [place], [place] 0[address] (Wo rk) documented as of this encounter Visit Diagnoses Diagnosis PAD (peripheral artery disease) Peripheral vascular disease, unspecified documented in this encounter Care Teams Underwriting Account Representative Relationship Specialty Start Date End Date Lovely Vicente MD PCP - General 04/16/[address] [place] [address] documented as of this encounter
--- OUTSIDE RECORDS SUMMARY | 2022-05-22 08:17 | XMS_ITS | Encounter Summary ---
:1945 Author Organization [facility] [place] [address] Care Team Providers Name Role Phone Lovely Vicente MD Primary Care Provider Reason for Referral Diagnostic Test (Routine) - Closed Specialty Diagnoses / Procedures Referred By Contact Refer red To Contact Cardiology Diagnoses Ischemic cardiomyopathy Acute on chronic systolic congestive heart failure Danette Maxwell APRN [facility] Non-Inv Card Lab Procedures Echocardiogram Transthoracic(Leb) [facility] [place] [address] [place] [address] Referral ID Status Reason Start Date Expiration Date Visits V isits Requested Authorized [id number] Closed Specialty 08/30/2017 08/30/2018 1 1 Service Requested Reason for Visit Diagnostic Test (Routine) - Closed Specialty Diagnoses / Procedures Referred By Contact Refer red To Contact Cardiology Diagnoses Ischemic cardiomyopathy Acute on chronic systolic congestive heart failure Danette Maxwell APRN [facility] Non-Inv Card Lab Procedures Echocardiogram Transthoracic(Leb) [facility] [place] [address] [place] [address] Referral ID Status Reason Start Date Expiration Date Visits V isits Requested Authorized [id number] Closed Specialty 08/30/2017 08/30/2018 1 1 Service Requested Encounter Details Date Type Department Care Team Description 10/07/2017 Hospital Encounter Non-Invasive Ischemic cardiomyopathy; Cardiology Lab Barbara Craig on chronic systolic congest[place] [address] Social History Tobacco Use Types Packs/Day [...] Description 05/28/2022 Appointment Cardiology Zulma Dolan MD [facility] [address] [place], [place] 0[address] (Wo rk) 05/28/2022 Laboratory Appointment Lab 05/28/2022 Office Visit Cardiology Zulma Dolan MD [facility] [place] [address] Liz Poole PA [facility] [place] [address] 06/10/2022 Office Visit Dermatology Laura Scherer MD [facility] [address] [place], [place] 0[address] (Wo rk) documented as [...] Mccollum ? (Age): 1945(72y) Med Rec#: ? [id number] ?Sex: ?M ? [place] Loc: ? [facility] [place]Ht / Wt: ??173(cm)/82(kg) Pt. Loc: ?Echo Lab ?BSA: ?1.96 Study Date: ?? 10/07/2017 ?Pt. Type: Outpatient Tape: ? Referring: Danette Maxwell Reading: Iker Cuevas ([id number]) Rn Travel: Yonathan Bocanegra Diagnosis: *ICD-10-PCS Ischemic cardiomyopathy (I2 [...] E-wave Vmax ?1.2 ?m/sec ? MV deceleration [id number] ?msec ? MV A-wave Vmax ?1 ?m/sec [...] ? Mid-Inferior ?Hypokinetic ? Mid-Inferoseptal ?Hypokinetic ? [place]-Septal ? Akinetic ? [place]-Anterior ? Hypokinetic ? [place]-Lateral ?Hypokinetic ? [place]-Inferior ? Hypokinetic ? [place]-Tip ?Akinetic ? This report has been electronically sign ed by: _ Iker Cuevas M.D. ? 10/07/2017 11:12:34 Images reviewed and interpretation verif ied [facility] Cardiac Ultrasound Laboratory Procedure Note Iker Cuevas MD - 10/07/2017Formatti ng of this note might be different from the original. Procedure: Transthoracic Echocardiogram Patient: NATALYA MCBRIDE(Age): [birth year]72y) Med Rec#: [id number] Sex: M Site Loc: [facility] Ht / Wt: 173(cm)/82(kg) Pt. Loc: Echo Lab BSA: 1.96 Study Date: 10/07/2017 Pt. Type: Outpati ent Tape: Referring: Danette Maxwell Reading: Iker Cuevas ([id number]) Rn Travel: Yonathan Bocanegra Diagnosis: *ICD-10-PCS Ischemic cardiomyopathy (I2 [...] MV E-wave Vmax 1.2 m/sec MV deceleration [id number] msec MV A-wave Vmax 1 m/sec MV [...] Akinetic Mid-Posterolateral Hypokinetic Mid-Inferior Hypokinetic Mid-Inferoseptal Hypokinetic Te[place]-Septal Akinetic [place]-Anterior Hypokinetic [place]-Lateral Hypokinetic [place]-Inferior Hypokinetic [place]-Tip Akinetic This report has been electronically sign ed by: _ Iker Cuevas M.D. 10/07/2017 11:12 :34 Images reviewed and interpretation elvie hwang [facility] Cardiac Ultrasound Laboratory Danette Maxwell APRN [...] Routine documented in this encounter Care Teams Damascener Relationship Specialty Start Date End Date Lovely Vicente MD PCP - General 04/16/[address] [place] [address] documented as of this encounter
--- OUTSIDE RECORDS SUMMARY | 2022-05-22 08:17 | XMS_ITS | Encounter Summary ---
:1945 Author Organization [facility] [place] [address] Care Team Providers Name Role Phone Lovely Vicente MD Primary Care Provider Reason for Visit Reason Onset Date Comments Other 11/11/2017 Please call [facility] Encounter Details Date Type Department Care Team Description 11/11/2017 Telephone Cardiology at [facility] Danette Maxwell, Other (Please call [facility] PRODUCTION LINE SOLDERER [facility] ) [place] [address] CARDIOLOGY [place], [place] 0[address] (Wo rk) Social History Tobacco [...] Zulma Dolan MD [facility] [address] [place], [place] [address] (Wo rk) 05/28/2022 Laboratory Appointment Lab 05/28/2022 Office Visit Cardiology Zulma Dolan MD [facility] [place] [address] Liz Poole PA [facility] [place] [address] 06/10/2022 Office Visit Dermatology Laura Scherer MD [facility] [address] [place], [place] 0[address] (Wo rk) documented as of this encounter Visit Diagnoses Not on filedocumented in this encounter Care Teams Botanical Technical Officer Relationship Specialty Start Date End Date Lovely Vicente MD PCP - General 04/16/15 [facility] [address] [place] [address] documented as of this encounter
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
--- OUTSIDE RECORDS SUMMARY | 2022-05-22 08:17 | XMS_ITS | Encounter Summary ---
:1945 Author Organization [facility] [place] [address] Care Team Providers Name Role Phone Lovely Vicente MD Primary Care Provider Encounter Details Date Type Department Care Team Description 09/06/2017 Telephone Vascular Surgery [place] [facility] Ninfa Clark, [place] [address] Social History Tobacco Use Types Packs/Day [...] Dolan MD [facility] [place], [place] 0[address] (Wo rk) 05/28/2022 Laboratory Appointment Lab 05/28/2022 Office Visit Cardiology Zulma Dolan MD [facility] [place] [address] Liz Poole PA [facility] [place] [address] 06/10/2022 Office Visit Dermatology Laura Scherer MD [facility] DR [address] [place], [place] 0[address] (Wo rk) documented as of this encounter Visit Diagnoses Not on filedocumented in this encounter Care Teams Fisherman Helper Relationship Specialty Start Date End Date Lovely Vicente MD PCP - General 04/16/[address] [place] [address] documented as of this encounter
--- OUTSIDE RECORDS SUMMARY | 2022-05-22 08:17 | XMS_ITS | Encounter Summary ---
:1945 Author Organization [facility] [place] [address] Care Team Providers Name Role Phone Lovely Vicente MD Primary Care Provider Encounter Details Date Type Department Care Team Description 10/07/2017 Laboratory Appointment Lab 3L [facility] [place] [phone] Social History Tobacco Use Types Packs/Day Years [...] MD [facility] [place], [place] [address] (Wo rk) 05/28/2022 Laboratory Appointment Lab 05/28/2022 Office Visit Cardiology Zulma Dolan MD [facility] [place] [address] Liz Poole PA [facility] [place] [address] 06/10/2022 Office Visit Dermatology Laura Scherer MD [facility] ER DR [address] ENIDReal [facility] [place] Amy (Wo rk) documented as [...] Lvl 99 65 - 199 [facility] mg/dL [facility] Comment: Diabetes: >=200 [...] 8.4 (L) 8.5 - 10.5 mg/dL [facility] Estimated GFR >60 >=60 [facility] Comment: The reported eGFR should be multiplied b y 1.2 for patients. The MDRD is not an appropriate measure o f renal function for patients with body mass extremes or in patients with acute kidney failure. http://Acamica.CoNarrative/DHnkdep http://Acamica.CoNarrative/DHMCnkf Specimen Anatomical Collection Method Collection Time Receive d Time (Source) Location / / Volume Laterality Blood specimen 10/07/2017 8:48 AM 018 8:50 (specimen) EDT AM EDT Resulting Agency Comment Spec In Lab Danette Maxwell COMPUTER SCIENCE INTERN CHEMISTRY ORDERABLES Performing Organization Address City/[facility]/ZIP Code Phon e Number [address] (ABNORMAL) pro-Brain Natriuretic Peptide (10/07/2017 8:48 AM EDT) athologist Signature ProBNP 1,170 (H) <=125 [facility] pg/mL [facility] Specimen Anatomical Collection Method Collection Time Receive d Time (Source) Location / / Volume Laterality Blood specimen 10/07/2017 8:48 AM 018 8:50 (specimen) EDT AM EDT Resulting Agency Comment Spec In Lab Danette A Hans QUINONES CHEMISTRY ORDERABLES Performing Organization Address City/State/[place] [address] documented in this encounter Visit Diagnoses Diagnosis Chronic systolic heart failure documented in this encounter Care Teams Bark Grinder Relationship Specialty Start Date End Date Lovely Vicente MD PCP - General 04/16/[address] [place] [address] documented as of this encounter
--- OUTSIDE RECORDS SUMMARY | 2022-05-22 08:17 | XMS_ITS | Encounter Summary ---
:1945 Author Organization [facility] [place] [address] Care Team Providers Name Role Phone Lovely Vicente MD Primary Care Provider Encounter Details Date Type Department Care Team Description 08/26/2017 Hospital Encounter Vascular Lab at [facility], Athero embolism of foot, right; [place], [place] Delayed surgi nusrat wound healing, [place] [address] Social History Tobacco Use Types Packs/Day Years [...] Dolan MD [facility] [address] [place], [place] [address] (Wo rk) 05/28/2022 Laboratory Appointment Lab 05/28/2022 Office Visit Cardiology Zulma Dolan MD [facility] [place] [address] Liz Poole PA [facility] [place] [address] 06/10/2022 Office Visit Dermatology Laura Scherer MD [facility] DR [address] [place], [place] [...] Department: Vascular Surgery Lab VASCUBASE Report Patient: [id number] (DON HOANG) CPT: 47183 ICD10: T81.89XA;I75.021 Referring Physician: ELVER BLOOM ?? [...] encounter documented in this encounter Care Teams Refueling Rampman Relationship Specialty Start Date End Date Lovely Vicente MD PCP - General 04/16/[address] [place] [address] documented as of this encounter
--- OUTSIDE RECORDS SUMMARY | 2022-05-22 08:17 | XMS_ITS | Encounter Summary ---
:1945 Author Organization [facility] [place] [address] Care Team Providers Name Role Phone Lovely Vicente MD Primary Care Provider Encounter Details Date Type Department Care Team Description 09/03/2017 Telephone [place] [facility] [place] Ninfa Clark, [place] [address] Social History Tobacco Use Types Packs/Day [...] help with the discomfort of the change. Napper Grinder told the VNA that I would ask [...] MD [facility] [place], [place] 0[address] (Wo rk) 05/28/2022 Laboratory Appointment Lab 05/28/2022 Office Visit Cardiology Zulma Dolan MD [facility] [place] [address] Liz Poole PA [facility] [place] [address] 06/10/2022 Office Visit Dermatology Laura Scherer MD [facility] [address] [place], [place] 0[address] (Wo rk) documented as of this encounter Visit Diagnoses Not on filedocumented in this encounter Care Teams Trench Pipe Layer Helper Relationship Specialty Start Date End Date Lovely Vicente MD PCP - General 04/16/[address] [place] [address] [address] [facility] [address] [place] [address] documented as of this encounter
--- OUTSIDE RECORDS SUMMARY | 2022-05-22 08:17 | XMS_ITS | Encounter Summary ---
:1945 Author Organization [facility] [place] [address] Care Team Providers Name Role Phone Lovely Vicente MD Primary Care Provider Reason for Visit Reason Comments Follow-up I'm having trouble with the VAC Encounter Details Date Type Department Care Team Description 08/26/2017 Office Visit Vascular Surgery at [facility], STEPHANIE Mercado Atheroembolism of foot, right; [facility] [address] Delayed surgical wound healing, initial encounter; [facility] VASCULAR SURG YEHUDA Acute on chronic systolic congestive hea rt failure ; [place], [place] [address] [phone] Social History Tobacco Use Types Packs/Day Years [...] home and into the care of the [facility]. However, since discharge from [facility] he has had some difficulty with continuation [...] at [facility] MAIN OR ??? PRO AMPUTATION FOOT, TRANSMETATARSAL Right 08/09/2017 AMPUTATION, TRANSMETATARSAL (WRVU 12.71) performed by Yonathan Smith MD at [facility] MAIN OR ??? PRO CABG, ARTERIAL, SINGLE N/A 07/07/2017 @CABG, USING ARTERIAL GRAFT;SINGLE ARTERIAL GRAFT (WRVU 33.75) performed by Yuan Retana MD at [facility] MAIN OR ??? PRO CABG, ARTERY-VEIN, TWO N/A 07/07/2017 @CABG, TWO VENOUS GRAFTS & ARTERIAL GRAFT (WRVU 7.93) performed by Yuan Retana MD at [facility] MAIN OR ??? PRO COLONOSCOPY, REMV LESN, SNARE 01/16/2014 COLONOSCOPY, POLYPECTOMY, REMOVAL LESION BY SNARE performed by Nohemi Jaimes MD at [facility] ENDOSCOPY ??? PRO DRESSING CHANGE UNDER ANESTHESIA Right 08/11/2017 (MSURG) DRESSING CHANGE (FOR OTHER THAN IVAN) UNDER ANES. (WRVU 0.86) performed by Lamar Smith MD at [facility] MAIN OR ??? PRO ENDOSCOPY W/VIDEO-ASST VEIN HARVEST, CABG Right 07/07/2017 ENDOSCOPIC HARVEST VEIN(S) FOR CABG (WRVU 0.31) performed by Yuan Retana MD at [facility] OR ??? PRO THYROIDECTOMY 03/28/2013 THYROIDECTOMY, TOTAL OR COMPLETE performed by Manny Mcknight MD at [facility] OR Social Hx: Social History [...] Cardiology Zulma Dolan MD [facility] [place], [place] [address] (Wo rk) 05/28/2022 Laboratory Appointment Lab 05/28/2022 Office Visit Cardiology Zulma Dolan MD [facility] [place] [address] Liz Poole PA [facility] [place] [address] 06/10/2022 Office Visit Dermatology Laura Scherer MD [facility] DR [address] [place], [place] 0[address] (Wo rk) documented as of [...] Department: Vascular Surgery Lab VASCUBASE Report Patient: [id number] (GREGORY FATIMA) CPT: 54034 ICD10: T81.89XA;I75.021 Referring Physician: ARIK CLEMENT ?? [...] 199 [facility] mg/dL [facility] Comment: [...] or in patients with acute kidney failure. http://PEMRED/DHnkdep http://PEMRED/DHMCnkf Specimen Anatomical Collection Method Collection Time Receive d Time (Source) Location / / Volume Laterality Blood specimen 08/26/2017 2:00 PM 018 2:15 (specimen) EST PM EST Resulting Agency Comment Spec In Lab Danette Maxwell PAVER OPERATOR CHEMISTRY ORDERABLES Performing Organization Address City/[facility]/ZIP Code Phon e Number [address] (ABNORMAL) pro-Brain Natriuretic Peptide (08/26/2017 2:00 PM EST) P athologist Signature ProBNP 2,373 (H) <=125 [facility] pg/mL [facility] Specimen Anatomical Collection Method Collection Time Receive d Time (Source) Location / / Volume Laterality Blood specimen 08/26/2017 2:00 PM 018 2:15 (specimen) EST PM EST Resulting Agency Comment Spec In Lab Danette A Wilson STACIE CHEMISTRY ORDERABLES Performing Organization Address City/[facility] [place] [address] documented in this encounter Visit Diagnoses Diagnosis Atheroembolism of foot, right Delayed surgical wound healing, initial encounter Acute on chronic systolic congestive hea rt failure Acute on chronic systolic heart failure Ischemic cardiomyopathy Other specified forms of chronic ischemi c heart disease documented in this encounter Care Teams Helpdesk Technician Relationship Specialty Start Date End Date Lovely Vicente MD PCP - General 04/16/[address] [place] [address] documented as of this encounter
--- OUTSIDE RECORDS SUMMARY | 2022-05-22 08:17 | XMS_ITS | Encounter Summary ---
:1945 Author Organization [place] [address] Care Team Providers Name Role Phone Lovely Vicente MD Primary Care Provider Encounter Details Date Type Department Care Team Description 10/05/2017 Telephone Cardiology [place] [facility] [place] Sin MD [facility] [place] [address] CARDIOLOGY DEPT [phone] [place], [place] 0375 (Wo rk) Social History Tobacco [...] MD [facility] er [address] [place] [address] (Wo rk) 05/28/2022 Laboratory Appointment Lab 05/28/2022 Office Visit Cardiology Zulma Dolan MD [facility] [place] [address] Liz Poole PA [facility] [place] [address] 06/10/2022 Office Visit Dermatology Laura Scherer MD [facility] ER DR [address] [place], [place] [address] (Wo rk) documented as of this encounter Visit Diagnoses Not on filedocumented in this encounter Care Teams Carpenter Refrigerator Relationship Specialty Start Date End Date Lovely Vicente MD PCP - General 04/16/[address] [place] [address] documented as of this encounter
--- OUTSIDE RECORDS SUMMARY | 2022-05-22 08:17 | XMS_ITS | Encounter Summary ---
:1945 Author Organization [facility] [place] [address] Care Team Providers Name Role Phone Lovely Vicente MD Primary Care Provider Reason for Visit Reason Comments Follow-up Encounter Details Date Type Department Care Team Description 08/19/2017 Office Visit Cardiac Surgery at [facility], Jock S/P C ABG (coronary [facility], artery bypass graft) [facility] [place]AC[place] [id number] SURGERY [phone] [place], [place] [address] Social History Tobacco Use Types [...] office. Best personal regards, Yuan [facility] MD [phone] documented in this encounter Plan of Treatment Upcoming Encounters Date Type Specialty Care Team Description 05/28/2022 Appointment Cardiology Zulma Dolan MD [facility] er [address] [place] [address] (Wo rk) 05/28/2022 Laboratory Appointment Lab 05/28/2022 Office Visit Cardiology Zulma Dolan MD [facility] [place] [address] Liz Poole PA [facility] [place] [address] 06/10/2022 Office Visit Dermatology Laura Scherer MD [facility] ER DR [address] [place] [id number] (Wo rk) documented as of this encounter [...] 454 ms MUSE SYSTEM (Bezet) Calculated P [place] 20 degrees MUSE SYSTEM Calculated R [place] -29 degrees MUSE SYSTEM Calculated T [place] 121 degrees MUSE SYSTEM INTERPRETATION Normal sinus rhythm MUSE SYSTEM Inferior infarct (cited on or before 25-JAN-2013) Anterior infarct (cited on or before 05-JUL-2017) T wave abnormality, consider lateral ischemia Abnormal ECG When compared with ECG of 06-AUG-2017 12:37, No signif icant change was found Confirmed by MD Luci, Taurus Braun ([id number]) on 08/19/2017 1 0:37:38 PM Specimen Anatomical [...] status documented in this encounter Care Teams Welder Operator Relationship Specialty Start Date End Date Lovely Vicente MD PCP - General 04/16/[address] [place] [address] documented as of this encounter
--- OUTSIDE RECORDS SUMMARY | 2022-05-22 08:17 | XMS_ITS | Encounter Summary ---
:1945 Author Organization [facility] [place] [address] Care Team Providers Name Role Phone Lovely Vicente MD Primary Care Provider Encounter Details Date Type Department Care Team Description 09/07/2017 Office Visit Endocrinology at [facility] Maria Ines Stallings of [facility] [place] [address] CENTER [phone], [place] [address] Social History Tobacco Use Types [...] MD [facility] er Dr [place], [place] [address] (Wo rk) 05/28/2022 Laboratory Appointment Lab 05/28/2022 Office Visit Cardiology Zulma Dolan MD [facility] [place] [address] Liz Poole PA [facility] [place] [address] 06/10/2022 Office Visit Dermatology Laura Scherer MD [facility] ER DR [address] [place], [place] [address] (Wo rk) documented as of this encounter Visit Diagnoses Diagnosis Hx of papillary thyroid carcinoma Personal history of malignant neoplasm o f thyroid documented in this encounter Care Teams Order Tracer Relationship Specialty Start Date End Date Lovely Vicente MD PCP - General 04/16/15 [facility] [address] [place] [address] documented as of this encounter
--- OUTSIDE RECORDS SUMMARY | 2022-05-22 08:18 | XMS_ITS | Encounter Summary ---
:1945 [place] [address] Care Team Providers Name Role Phone Lovely Vicente MD Primary Care Provider Reason for Visit Auth/Cert Specialty Diagnoses / Procedures Referred By Contact Refer red To Contact Diagnoses Critical lower limb ischemia CELLULITIS RT FOOT Procedures EMERGENCY Referral ID Status Reason Start Date Expiration Date Visits Requ ested Visits Authorized [id number] 1 1 Encounter Details Date Type Department Care Team Description 08/06/2017 - Hospital Encounter 5 Yonathan Oneill lower limb ischemia; 08/16/2017 Su Flores MD Ischemic foot Hospital [facility] [address] [place] [phone] Social History Tobacco Use Types Packs/Day Years [...] 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 Patient [...] Dorsalis Pedis (Ankle) Artery ?132 ? 0.94 ??[place]-Biphasic ? Posterior Tibial (Ankle) Artery ??154 ? 1.10 ??[place]-Biphasic ? Fourth Toe ? 67 ?0.48 ?? [...] foot. Discharge Conditions/Prognosis: Good Discharge to: [facility] Rehab Discharge Medications: Your Medications New [...] For any problems or questions please call [phone] ZELDA Smith, drill press operator for metal Nurse Clinician For issues on weeknights after 5pm and weekends please call [phone] and ask for the Vascular Fellow conventions reservationist. General Instructions None Future Appointments and Orders Future Appointments Provider Department Dept Phone 08/26/2017 4:00 PM Aurelia Rivera PA [facility] [place] [phone] 09/07/2017 3:00 PM LAB, THREE L Lab 3L [facility] [phone] 09/07/2017 4:00 PM Luz Prescott MD Endocrinology [facility] [place] [phone] 09/09/2017 8:00 AM Barbra Soares APRN Pain Management [facility] [place] [phone] Please bring a list of your current [...] For any problems or questions please call [phone] ZELDA Smith, drill press operator for metal Nurse Clinician For issues on weeknights after 5pm and weekends please call [phone] and ask for the Vascular Fellow conventions reservationist. documented in this encounter Medications at Time [...] of Care Management Discharge Note Patient Destination: [facility] ([place]) [address] [place] [address] Transportation: with (at bedside) Time of Discharge: by 12 noon Level of Care: swing Patient Aware: yes Family Notified: yes Md to call report to: Yissel Quintero SENIOR PROPERTY ACCOUNTANT already called RN to call report to: [phone] Shirin Wolf Office of Care Management Pager [phone] Shirin Wolf RN - 08/16/2017 10:50 AM EST [facility] has offered pt swing bed. Pt and accept bed. will transport via car. SENIOR PROPERTY ACCOUNTANT Yissel Quintero aware; d/c paperwork will be completed by 12 noon. [facility] requests pt arrival by 1400 today; SENIOR PROPERTY ACCOUNTANT, RN, and family aware. SENIOR PROPERTY ACCOUNTANT called [facility] and was told that they prefer pt to arrive with wound vac dressing applied but clamped. SENIOR PROPERTY ACCOUNTANT applied new wound vac dressing. RN has [facility] number to call report. PASSR completed; SENIOR PROPERTY ACCOUNTANT paged to request provider signature in highlighted space. Indigo from [facility] notified via email that home wound vac now cancelled; [facility] has picked up from room and order cancelled. Packet started and provided to community health counselor. Medicare important message explained to patient, patient signed. Copy provided to patient and signature page to OCM for inclusion in pt EMR. Radha Georges - 08/16/2017 10:34 AM EST Office of Care Management/Material Control Associate Patient Name: Gregory Hoang : 1945 Patient has been offered a swing bed at [facility]. The patient will be transported by private transportation. No MD to MD report necessary Please call Nursing Report to [phone], ask for director customer. Info to accompany patient: Narcotic Prescriptions Copies of Medication Administration Records and IV sheets for past 10 days. Plan: Material Control Associate will be available to the patient and Sales Agent Pest Control Service-RN and/or Electrolytic De Scaler for further assistance. Patient will be discharged to: [place] [phone] Radha Powers, Material Control Associate Mira Black, VAMSI - 08/15/2017 10:05 PM EST [address] Flores to ask if he wanted to hold metoprolol dose. BP 95/58. OK to hold this dose Courtney Brito - 08/15/2017 3:26 PM EST Office of Care Management(OCM)/Material Control Associate(RS)/ D/C Planning re : Patient is medically ready for d/c today. RS has been in contact with [facility] to see if they could offer a bed. [facility] is still reviewing the case and need their MD to review chart prior to accepting or declining. OCM team needs to check in with [facility] tomorrow to check on status. 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 Await recommendations from PT. Covering pager #[phone]. Viry Starkey MD - 08/14/2017 10:08 AM [...] blue toe syndrome (possibly from a right SUPERVISOR [employer] AND H[employer] PRODUCTION PSA which has since thrombosed), now admitted [...] do rehab instead of going home with [facility]. Pets Salesperson Kaitlin Saha, RN Pager #[phone] Payam Rosales - 08/13/2017 2:37 PM EST Production Bow Maker Encounter Note Patient Name: Gregory Hoang : [id number] MR#: [id number] Admit Date: 08/06/2017 1:41 PM Hospital Day 7 days Narrative: Visited to introduce and assess acceptance of [employer] services. Pt was awake, alert, oriented and in chair and family was there. Assessment:Patient coping positively with stresses of illness/hospitalization at this time. Pt says that he is hoping to get better and his family was there. Pt says that he has family care and supportand taking one day at time. Intervention and Outcome: Provided emotional support and encouraging presence. 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 A letter describing our affiliations was reviewed with them and theywere educated about their right to choose where referrals are placed. Patient requests referral to [facility] [employer]. PHONE: [phone] FAX: [phone]. And Home NPWT (Negative Pressure Wound Therapy) aka wound vac device made available to pt. Serial # confirmed. Reviewed [facility] Proof of Delivery/Assignment of Benefits Statement(POD/AOB) Form w patient or authorized agent signing on behalf of patient. Copy of POD/AOB provided to pt and other copy faxed to [employer] @ fax# [phone] Expected date of discharge: 08/12/2017. 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 Address: [address] [place] [address] [place] [address] (home) Mobile: Telephone Information: Referring Provider: No [...] by Manny Mcknight MD at [facility] MAIN OR ??? PRO CABG, ARTERIAL, SINGLE N/A 07/07/2017 @CABG, USING ARTERIAL GRAFT;SINGLE ARTERIAL GRAFT (WRVU 33.75) performed by Yuan Retana MD at [facility] MAIN OR ??? PRO CABG, ARTERY-VEIN, TWO N/A 07/07/2017 @CABG, TWO VENOUS GRAFTS & ARTERIAL GRAFT (WRVU 7.93) performed by Yuan Retana MD at [facility] MAIN OR ??? PRO COLONOSCOPY, REMV LESN, SNARE 01/16/2014 COLONOSCOPY, POLYPECTOMY, REMOVAL LESION BY SNARE performed by Nohemi Jaimes MD at [facility] ENDOSCOPY ??? PRO ENDOSCOPY W/VIDEO-ASST VEIN HARVEST, CABG Right 07/07/2017 ENDOSCOPIC HARVEST VEIN(S) FOR CABG (WRVU 0.31) performed by Yuan Retana MD at [facility] MAIN OR ??? 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 Heparin gtt continues to [...] of : 1945 AGE 72 y.o. Address: [address] [place] [address] [place] [address] (home) Mobile: Telephone Information: Referring Provider: No [...] by Manny Mcknight MD at [facility] MAIN OR ??? PRO CABG, ARTERIAL, SINGLE N/A 07/07/2017 @CABG, USING ARTERIAL GRAFT;SINGLE ARTERIAL GRAFT (WRVU 33.75) performed by Yuan Retana MD at [facility] MAIN OR ??? PRO CABG, ARTERY-VEIN, TWO N/A 07/07/2017 @CABG, TWO VENOUS GRAFTS & ARTERIAL GRAFT (WRVU 7.93) performed by Yuna Retana MD at [facility] MAIN OR ??? PRO COLONOSCOPY, REMV LESN, SNARE 01/16/2014 COLONOSCOPY, POLYPECTOMY, REMOVAL LESION BY SNARE performed by Nohemi Jaimes MD at [facility] ENDOSCOPY ??? PRO ENDOSCOPY W/VIDEO-ASST VEIN HARVEST, CABG Right 07/07/2017 ENDOSCOPIC HARVEST VEIN(S) FOR CABG (WRVU 0.31) performed by Yuan Retana MD at [facility] MAIN OR ??? 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 Unsuccessful draw attempt, another pediatric lpn will [facility] to collect blood for PTT test. 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 Vascular resident conventions reservationist and will forward result to the team prior to rounds. 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 Continue pain control, IV antibiotics, and heparin infusion. Given that his disease appears to be diabetic, and tibial - pedal, planning for angiography early this week to delineate anatomy and determine revascularization options. Shubham Mayorga, Vascular Surgery Mria Truong, VAMSI - 08/06/2017 8:[address] Vargas for pain medication. Pt in considerable pain and tylenol and tramadol are not available to him until 2395. Plan to try a small dose of [...] addition to a pseudoaneurysm of his R SUPERVISOR CAP [employer] H[employer] PRODUCTION and bilateral anterior tibial artery occlusions. Patient [...] by Manny Mcknight MD at [facility] MAIN OR ??? PRO CABG, ARTERIAL, SINGLE N/A 07/07/2017 @CABG, USING ARTERIAL GRAFT;SINGLE ARTERIAL GRAFT (WRVU 33.75) performed by Yuan Retana MD at [facility] MAIN OR ??? PRO CABG, ARTERY-VEIN, TWO N/A 07/07/2017 @CABG, TWO VENOUS GRAFTS & ARTERIAL GRAFT (WRVU 7.93) performed by Yuan Retana MD at [facility] MAIN OR ??? PRO COLONOSCOPY, REMV LESN, SNARE 01/16/2014 COLONOSCOPY, POLYPECTOMY, REMOVAL LESION BY SNARE performed by Nohemi Jaimes MD at [facility] ENDOSCOPY ??? PRO ENDOSCOPY W/VIDEO-ASST VEIN HARVEST, CABG Right 07/07/2017 ENDOSCOPIC HARVEST VEIN(S) FOR CABG (WRVU 0.31) performed by Yuan Retana MD at [facility] MAIN OR ??? PRO THYROIDECTOMY 03/28/2013 THYROIDECTOMY, TOTAL OR COMPLETE performed by Manny Mcknight MD at [facility] MAIN OR Functional Status/Social Hx: Quit [...] left blue toes with CTA showing R SUPERVISOR CAP [employer] H[employer] PRODUCTION pseudoaneurysm (now thrombosed) and occluded ATs bilaterally. [...] 2.5x80 5. Completion RLE angiogram 6. L SUPERVISOR CAP AND HAT PRODUCTION angiogram 7. 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 - L SUPERVISOR [employer] H[employer]ODUCTION angriogram demonstrated: High femoral bifurcation over the proximal half of the femoral head. L SUPERVISOR [employer] H[employer] PRODUCTION access in the distal L SUPERVISOR CAP [employer] HAT PRODUCTION. - Closure device: Mynx Technical Procedure: The [...] for a 45cm 5F Destination. V18 and [place] and QuickCross catheters were used to select [...] 5F. A stationed picture of the L SUPERVISOR [employer]ODUCTION was performed as the patient was noted to have a very high bifurcation. Access appeared in the distal R SUPERVISOR [employer] H[employer]ODUCTION. Closure and sheath removal was performed with [...] PM EST 1440 report called to 5 [place] nurse Tessa AGUSTIN documented in this encounter [...] pt and pt's spouse. Discharge to [facility]. Goal: Individualization & Mutuality Outcome: Outcome [...] sit/sit to supine -- Bed Mobility Goal, Garden Level independent -- Bed Mobility Goal, Date [...] days -- Transfer Training Goal, Activity Type mxl-fr-kakoe/ummec-qe-zlj -- Transfer Train Goal, Garden Level conditional independence -- Transfer Train Goal, [...] call cabello within reach, Hourly rounding by RN/MARINE STEAMFITTER. Bed alarm / Chair alarm. Patient-specific fall [...] MD - 08/15/2017 6:28 PM EST [facility] Operative Note Patient Name: Gregory Hoang : [id number] MR#: [id number] Case Date: 08/09/2017 Surgeon: Surgeon(s) and Role: [...] 2.5x80 5. Completion RLE angiogram 6. L SUPERVISOR [employer] H[employer] PRODUCTION angiogram 7. Mynx closure Precautions/Restrictions: fall, sternal [...] other (see comments) (or swing bed) Pager: [phone] BASSAM ELIAS, PT 08/14/2017 Inpatient Physical Therapy [...] to Achieve by discharge Gait Training Goal, Garden Level conditional independence;set up required Gait Training [...] facilities over the weekend except for [facility]. CM spoke with [facility] CM Drea Sandhu, VAMSI who said that they do not anticipate any beds over the weekend. Reviewed with patient/ that they need to be aware that patient will need to take the first bed offered at the facilities that they make referrals to. Their choices are: 1- [facility] PHONE: [phone] FAX: [phone] 2- [facility] ([place]) [address] [place] [address] 3- [facility]) [address] [place] [address] I have discussed Medicare/Private Insurance [...] RS/CM on Wednesday to follow-up. Covering pager #[phone] for today. Plan of Care - Henrique [...] with additional findings of pseudoaneurysm on R SUPERVISOR CAP [employer] HAT PRODUCTION and bilateral anterior tibial artery occlusions. Was [...] an outpatient once discharged. Have patient call [phone] to set up an appointment. Follow-up: Dermatology will sign-off for now. Please do not hesitate to contact us if you have any questions orconcerns. Impression and Recommendations discussed with primary team on 08/13/2017. Karo Henderson MD Resident in Dermatology Section of Dermatology, Department of Surgery [facility] Pager [phone] Patient seen and evaluated with staff Grain Mill Products Inspector: Halima Cordero MD Section of Dermatology [facility] Level of Resident Supervision: Direct Supervision (The [...] 2.5x80 5. Completion RLE angiogram 6. L SUPERVISOR CAP AND HAT PRODUCTION angiogram 7. Mynx closure Active Non-Hospital Problems [...] home with home health ([facility] PT&OT) Pager: [phone] YASIR TELLO OT 08/12/2017 Occupational Therapy Rehabilitation [...] 2.5x80 5. Completion RLE angiogram 6. L SUPERVISOR CAP AND HAT PRODUCTION angiogram 7. Mynx closure Past Medical History: [...] with 24/7 assistance and maximal services) Pager: [phone] NICHOLAS MORA, PT 08/12/2017 Physical Therapy Rehabilitation [...] sit/sit to supine -- Bed Mobility Goal, Garden Level independent -- Bed Mobility Goal, Outcome Achieved -- goal ongoing Goal: Gait Training Goal Stand Alone Therapy Goal Outcome: Ongoing (Interventions Implemented as Appropriate) 08/11/17 1310 08/12/17 1510 Gait Training Goal Gait Training Goal, Date Established 08/11/17 -- Gait Training Goal, Time to Achieve 5 - 7 days -- Gait Training Goal, Garden Level conditional independence -- Gait Training Goal, [...] days -- Transfer Training Goal, Activity Type oqr-zx-eqpve/sekgk-ne-cta -- Transfer Train Goal, Garden Level conditional independence -- Transfer Training Goal, [...] MD - 08/11/2017 2:52 PM EST [facility] Operative Note Patient Name: Gregory Hoang : [id number] MR#: [id number] Case Date: 08/11/2017 Surgeon: Surgeon(s) and Role: [...] 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 Completion RLE angiogram 6. L SUPERVISOR CAP AND HAT PRODUCTION angiogram 7. Mynx closure He is very [...] Anticipated Discharge Disposition: inpatient rehabilitation facility Pager: [phone] LAWRENCE GONZALEZ, PT 08/11/2017 Physical Therapy Rehabilitation [...] to sit/sit to supine Bed Mobility Goal, Garden Level independent Goal: Gait Training Goal Stand Alone Therapy Goal Outcome: Ongoing (Interventions Implemented as Appropriate) 08/11/17 1310 Gait Training Goal Gait Training Goal, Date Established 08/11/17 Gait Training Goal, Time to Achieve 5 - 7 days Gait Training Goal, Garden Level conditional independence Gait Training Goal, Assist [...] 7 days Transfer Training Goal, Activity Type wlf-pz-cniig/ofaej-ns-dfk Transfer Train Goal, Garden Level conditional independence Plan of [facility] Annetta Sandoval RN - 08/11/2017 7:21 [...] call cabello within reach, Hourly rounding by RN/MARINE STEAMFITTER. Bed alarm / Chair alarm. ? Patient-specific [...] the Past 30 Days: [facility] 07/20/2017 Anticipated Length Of Stay (If known): Expected Length of Hospitalization: 5-7 days2-3 days Current Decision-Making Capacity: Alert and oriented x 4 Advance Care Planning: on file Kisha Hoang [facility] [phone] Current Coping/Education/Information Needs: pt and spouse state [...] Health/Prescription Coverage: Primary Insurance: MEDICARE Secondary Insurance: [employer] Prescription Coverage: See above Preferred Pharmacy: [facility] Other: N/A Primary Care Provider: Lovely Vicente MD [phone] Patient/Caregiver Goals of Treatment: Patient plans to [...] of care planning. Kaitlin Saha RN Pager: [phone] Plan of Care - Melba Jaramillo RN [...] Overview Goal: Plan of Care Review 08/08/17 3924 Coping/Psychosocial Plan Of Care Reviewed With patient [...] call cabello within reach, Hourly rounding by RN/MARINE STEAMFITTER. Bed alarm / Chair alarm. Patient-specific fall [...] at bedside and MD TEAM Carrying pager [phone] contacted (via Radio page) and notified of [...] Cardiology Zulma Dolan MD [facility] [place], [place] [address] (Wo rk) 05/28/2022 Laboratory Appointment Lab 05/28/2022 Office Visit Cardiology Zulma Dolan MD [facility] [place] [address] Liz Poole PA [facility] [place] [address] 06/10/2022 Office Visit Dermatology Laura Scherer MD [facility] [address] [place], [place] [address] [...] Signature POC Glucose 160 65 - 199 [facility] mg/dL [facility] Comment: Supplemental ranges: <140 mg/dL before meals <180 mg/dL all other times of the day Specimen Anatomical Collection Method Collection Time Receive d Time (Source) Location / / Volume Laterality Blood specimen 08/16/2017 7:28 AM 018 7:28 (specimen) EST AM EST Yonathan Smith MD POINT OF CARE TEST ORDERABLE S Performing Organization Address City/State/[place] [address] (ABNORMAL) Differential, Automated (08/16/2017 5:08 AM EST) [facility] Method Time Signature Neutrophils % 73.9 % [facility] LABORATORY Neutr Abs (ANC) 5.37 1.70 - [facility] 6.10 [facility] x10(3)/[facility] LABORATORY Lymphocytes % 10.1 % [facility] LABORATORY Lymphocytes Abs 0.7 (L) 0.9 - 3.2 [facility] x10(3)/[facility] LABORATORY Monocytes % 10.1 % [facility] LABORATORY Monocyte Abs 0.7 0.3 - 0.9 [facility] x10(3)/[facility] LABORATORY Eosinophils % 5.1 % [facility] LABORATORY Eosinophils Abs 0.4 0.0 - 0.4 [facility] x10(3)/[facility] LABORATORY Basophils % 0.4 % [facility] LABORATORY Basophils Abs 0.0 0.0 - 0.1 [facility] x10(3)/[facility] LABORATORY Immature Gran % [...] 0.00 - 0.04 x10(3)/[facility] LABORATORY Specimen Anatomical Collection Method Collection Time Receive d Time (Source) Location / / Volume Laterality Blood specimen 08/16/2017 5:08 AM 018 5:20 (specimen) EST AM EST Resulting Agency Comment Spec In Lab Yonathan Smith MD HEMATOLOGY ORDERABLES Performing Organization Address City/State/[place] [address] (ABNORMAL) Hemogram (08/16/2017 5:08 AM EST) Analysis Performed At Patho logist Time Signature WBC 7.3 4.0 - 9.5 [facility] x10(3)/[facility] LABORATORY RBC 3.36 (L) 4.58 - [place] SU 5.54 [facility] x10(6)/[facility] LABORATORY Hemoglobin 9.7 (L) 13.7 - [facility] 16.[facility] gm/dL [facility] Hematocrit 30.3 (L) 40.5 - [facility] 48.5 % [facility] MCV 90.2 82.9 - [facility] 93.1 [facility] LABORATORY MCH 28.9 27.5 - [place] [facility] 32.1 pg [facility] LABORATORY MCHC 32.0 32.0 - [place] [facility] 35.7 gm/dL [facility] LABORATORY Platelets 282 145 - 357 [facility] x10(3)/[facility] LABORATORY RDWSD 53.9 (H) 36.0 - [facility] 45.0 [facility] LABORATORY RDWCV 16.5 (H) 11.4 - [facility] SU 13.8 % [facility] LABORATORY MPV 9.0 7.6 - 12.9 [facility] LABORATORY nRBC % Auto 0.0 % [facility] LABORATORY nRBC Abs Auto 0.000 0.000 - [facility] SU 0.000 [facility] x10(3)/[facility] LABORATORY Specimen Anatomical Collection Method Collection Time Receive d Time (Source) Location / / Volume Laterality Blood specimen 08/16/2017 5:08 AM 018 5:20 (specimen) EST AM EST Resulting Agency Comment Spec In Lab Yonathan Smith MD HEMATOLOGY ORDERABLES Performing Organization Address City/State/[place] [address] (ABNORMAL) Basic Metabolic Panel (non-fasting) (08/16/2017 5:08 AM EST) P athologist Signature Glucose Lvl 141 65 - 199 [facility] mg/dL [facility] [...] or in patients with acute kidney failure. [email or web address] Specimen Anatomical Collection Method Collection Time Receive d Time (Source) Location / / Volume Laterality Blood specimen 08/16/2017 5:08 AM 018 5:20 (specimen) EST AM EST Resulting Agency Comment Spec In Lab Yonathan Smith MD CHEMISTRY ORDERABLES Performing Organization Address City/State/[place] [address] (ABNORMAL) Prothrombin Time (08/16/2017 [...] Address City/State/ZIP Code Phon e Number [address] POCT Glucose (08/16/2017 4:09 AM EST) athologist Signature POC Glucose 147 65 - 199 [facility] Comment: Supplemental ranges: <140 mg/dL before meals <180 mg/dL all other times of the day Specimen Anatomical Collection Method Collection Time Receive d Time (Source) Location / / Volume Laterality Blood specimen 08/16/2017 4:09 AM 018 4:09 (specimen) EST AM EST Yonathan Smith MD POINT OF CARE TEST ORDERABLE S Performing Organization Address City/State/[place] [address] POCT Glucose (08/15/2017 11:56 PM EST) athologist Signature POC Glucose 176 65 - 199 [facility] SU mg/dL [facility] Comment: Supplemental ranges: <140 mg/dL before meals <180 mg/dL all other times of the day Specimen Anatomical Collection Method Collection Time Receive d Time (Source) Location / / Volume Laterality Blood specimen 08/15/2017 11:56 8 (specimen) PM EST 11:56 PM EST Yonathan Smith MD POINT OF CARE TEST ORDERABLE S Performing Organization Address City/State/[place] [address] POCT Glucose (08/15/2017 8:05 PM EST) athologist Signature POC Glucose 136 65 - 199 [place] mg/dL [facility] Comment: Supplemental ranges: <140 mg/dL before meals <180 mg/dL all other times of the day Specimen Anatomical Collection Method Collection Time Receive d Time (Source) Location / / Volume Laterality Blood specimen 08/15/2017 8:05 PM 018 8:05 (specimen) EST PM EST Yonathan Smith MD POINT OF CARE TEST ORDERABLE S Performing Organization Address City/State/[place] [address] (ABNORMAL) POCT Glucose (08/15/2017 4:50 PM EST) athologist Signature POC Glucose 232 (H) 65 - 199 [facility] SU mg/dL [facility] Comment: Supplemental ranges: <140 mg/dL before meals <180 mg/dL all other times of the day Specimen Anatomical Collection Method Collection Time Receive d Time (Source) Location / / Volume Laterality Blood specimen 08/15/2017 4:50 PM 018 4:50 (specimen) EST PM EST Yonathan Smith MD POINT OF CARE TEST ORDERABLE S Performing Organization Address City/State/[place] [address] POCT Glucose (08/15/2017 12:04 PM EST) athologist Signature POC Glucose 135 65 - 199 [facility] SU mg/dL [facility] Comment: Supplemental ranges: <140 mg/dL before meals <180 mg/dL all other times of the day Specimen Anatomical Collection Method Collection Time Receive d Time (Source) Location / / Volume Laterality Blood specimen 08/15/2017 12:04 8 (specimen) PM EST 12:04 PM EST Yonathan Smith MD POINT OF CARE TEST ORDERABLE S Performing Organization Address City/State/[place] [address] POCT Glucose (08/15/2017 7:36 AM EST) P athologist Signature POC Glucose 124 65 - 199 [facility] mg/dL [facility] Comment: Supplemental ranges: <140 mg/dL before meals <180 mg/dL all other times of the day Specimen Anatomical Collection Method Collection Time Receive d Time (Source) Location / / Volume Laterality Blood specimen 08/15/2017 7:36 AM 018 7:36 (specimen) EST AM EST Yonathan Smith MD POINT OF CARE TEST ORDERABLE S Performing Organization Address City/State/[place] [address] (ABNORMAL) Differential, Automated (08/15/2017 6:22 AM EST) Patholo gist Method Time Signature Neutrophils % 76.1 % [facility] LABORATORY Neutr Abs (ANC) 6.62 (H) 1.70 - [facility] 6.10 [facility] x10(3)/[facility] L LABORATORY Lymphocytes % 9.3 % [facility] LABORATORY Lymphocytes Abs 0.8 (L) 0.9 - 3.2 [facility] x10(3)/[facility] LABORATORY Monocytes % 9.4 % [facility] LABORATORY Monocyte Abs 0.8 0.3 - 0.9 [facility] x10(3)/[facility] LABORATORY Eosinophils % 4.0 % [facility] LABORATORY Eosinophils Abs 0.4 0.0 - 0.4 [facility] x10(3)/[facility] LABORATORY Basophils % 0.6 % [facility] LABORATORY Basophils Abs 0.0 0.0 - 0.1 [facility] x10(3)/[facility] LABORATORY Immature Gran % [...] 0.05 (H) 0.00 - 0.04 x10(3)/[facility] LABORATORY Specimen Anatomical Collection Method Collection Time Receive d Time (Source) Location / / Volume Laterality Blood specimen 08/15/2017 6:22 AM 018 6:33 (specimen) EST AM EST Resulting Agency Comment Spec In Lab Yonathan Smith MD HEMATOLOGY ORDERABLES Performing Organization Address City/State/[place] [address] (ABNORMAL) Hemogram (08/15/2017 6:22 AM EST) Analysis Performed At Patho logist Time Signature WBC 8.7 4.0 - 9.5 [facility] x10(3)/[facility] LABORATORY RBC 3.21 (L) 4.58 - [facility].54 [facility] x10(6)/[facility] LABORATORY Hemoglobin 9.1 (L) 13.7 - [facility] 16.5 gm/dL [facility] LAB[facility]ORY Hematocrit 29.0 (L) 40.5 - [facility] 48.5 % [facility] LAB[facility]ATORY MCV 90.3 82.9 - [facility] 93.1 [facility] LABORATORY MCH 28.3 27.5 - [facility] 32.1 pg [facility] LABORATORY MCHC 31.4 (L) 32.0 - [facility]/dL [facility] LAB[facility]ATORY Platelets 254 145 - 357 [facility] x10(3)/[facility] LABORATORY RDWSD 53.9 (H) 36.0 - [facility] SU 45.0 [facility] LABORATORY RDWCV 16.3 (H) 11.4 - [facility] SU 13.8 % [facility] LABORATORY MPV 8.8 7.6 - 12.9 [facility] LABORATORY nRBC % Auto 0.0 % [facility] LABORATORY nRBC Abs Auto 0.000 0.000 - [facility] SU 0.000 [facility] x10(3)/[facility] LABORATORY Specimen Anatomical Collection Method Collection Time Receive d Time (Source) Location / / Volume Laterality Blood specimen 08/15/2017 6:22 AM 018 6:33 (specimen) EST AM EST Resulting Agency Comment Spec In Lab Yonathan Smith MD HEMATOLOGY ORDERABLES Performing Organization Address City/[facility]/[place] [address] (ABNORMAL) Basic Metabolic Panel (non-fasting) (08/15/2017 6:22 AM EST) athologist Signature Glucose Lvl 118 65 - 199 [facility] mg/dL [facility] Estimated GFR >60 >=60 [facility] LABORATORY Comment: The reported eGFR should be multiplied b y 1.2 for patients. The MDRD is not an appropriate measure o f renal function for patients with body mass extremes or in patients with acute kidney failure. [email or web address] [email or web address] Specimen Anatomical Collection Method Collection Time Receive d Time (Source) Location / / Volume Laterality Blood specimen 08/15/2017 6:22 AM 018 6:33 (specimen) EST AM EST Resulting Agency Comment Spec In Lab Yonathan Smith MD CHEMISTRY ORDERABLES Performing Organization Address City/[facility]/[place] [address] (ABNORMAL) Prothrombin Time (08/15/2017 [...] Organization Address City/State/[place] [address] POCT Glucose (08/15/2017 4:33 AM EST) athologist Signature POC Glucose 164 65 - 199 [facility] mg/dL [facility] Comment: Supplemental ranges: <140 mg/dL before meals <180 mg/dL all other times of the day Specimen Anatomical Collection Method Collection Time Receive d Time (Source) Location / / Volume Laterality Blood specimen 08/15/2017 4:33 AM 018 4:33 (specimen) EST AM EST Yonathan Smith MD POINT OF CARE TEST ORDERABLE S Performing Organization Address City/State/[place] [address] POCT Glucose (08/15/2017 12:12 AM EST) athologist Signature POC Glucose 89 65 - 199 [facility] mg/dL [facility] Comment: Supplemental ranges: <140 mg/dL before meals <180 mg/dL all other times of the day Specimen Anatomical Collection Method Collection Time Receive d Time (Source) Location / / Volume Laterality Blood specimen 08/15/2017 12:12 8 (specimen) AM EST 12:12 AM EST Yonathan Smith MD POINT OF CARE TEST ORDERABLE S Performing Organization Address City/State/[place] [address] (ABNORMAL) POCT Glucose (08/14/2017 8:07 PM EST) athologist Signature POC Glucose 204 (H) 65 - 199 [place] [facility] mg/dL [facility] Comment: Supplemental ranges: <140 mg/dL before meals <180 mg/dL all other times of the day Specimen Anatomical Collection Method Collection Time Receive d Time (Source) Location / / Volume Laterality Blood specimen 08/14/2017 8:07 PM 018 8:07 (specimen) EST PM EST Yonathan Smith MD POINT OF CARE TEST ORDERABLE S Performing Organization Address City/State/[place] [address] POCT Glucose (08/14/2017 5:11 PM EST) athologist Signature POC Glucose 174 65 - 199 [place] [facility] mg/dL [facility] Comment: Supplemental ranges: <140 mg/dL before meals <180 mg/dL all other times of the day Specimen Anatomical Collection Method Collection Time Receive d Time (Source) Location / / Volume Laterality Blood specimen 08/14/2017 5:11 PM 018 5:11 (specimen) EST PM EST Yonathan Smith MD POINT OF CARE TEST ORDERABLE S Performing Organization Address City/State/[place] [address] POCT Glucose (08/14/2017 12:10 PM EST) athologist Signature POC Glucose 141 65 - 199 [place] [facility] mg/dL [facility] Comment: Supplemental ranges: <140 mg/dL before meals <180 mg/dL all other times of the day Specimen Anatomical Collection Method Collection Time Receive d Time (Source) Location / / Volume Laterality Blood specimen 08/14/2017 12:10 8 (specimen) PM EST 12:10 PM EST Yonathan Smith MD POINT OF CARE TEST ORDERABLE S Performing Organization Address City/State/ZIP Code Phon e Number [address] POCT Glucose (08/14/2017 8:07 AM EST) P athologist Signature POC Glucose 158 65 - 199 [facility] mg/dL [facility] LABORATORY Comment: Supplemental ranges: <140 mg/dL before meals <180 mg/dL all other times of the day Specimen Anatomical Collection Method Collection Time Receive d Time (Source) Location / / Volume Laterality Blood specimen 08/14/2017 8:07 AM 018 8:07 (specimen) EST AM EST Yonathan Smith MD POINT OF CARE TEST ORDERABLE S Performing Organization Address City/State/[place] [address] (ABNORMAL) Differential, Automated (08/14/2017 4:52 AM EST) Patholo gist Method Time Signature Neutrophils % 78.6 % [facility] LABORATORY Neutr Abs (ANC) 7.70 (H) 1.70 - [facility] 6.10 [facility] x10(3)/[facility] L LABORATORY Lymphocytes % 7.8 % [facility] LABORATORY Lymphocytes Abs 0.8 (L) 0.9 - 3.2 [facility] x10(3)/[facility] LABORATORY Monocytes % 8.8 % [facility] LABORATORY Monocyte Abs 0.9 0.3 - 0.9 [facility] x10(3)/[facility] LABORATORY Eosinophils % 4.0 % [facility] LABORATORY Eosinophils Abs 0.4 0.0 - 0.4 [facility] x10(3)/[facility] LABORATORY Basophils % 0.5 % [facility] LABORATORY Basophils Abs 0.0 0.0 - 0.1 [facility] x10(3)/[facility] LABORATORY Immature Gran % 0.30 % [...] x10(3)/[facility] MAR Y [facility] LABORATORY Specimen Anatomical Collection Method Collection Time Receive d Time (Source) Location / / Volume Laterality Blood specimen 08/14/2017 4:52 AM 018 5:08 (specimen) EST AM EST Resulting Agency Comment Spec In Lab Yonathan Smith MD HEMATOLOGY ORDERABLES Performing Organization Address City/State/[place] [address] (ABNORMAL) Hemogram (08/14/2017 4:52 AM EST) Analysis Performed At Patho logist Time Signature WBC 9.8 (H) 4.0 - 9.5 [facility] x10(3)/[facility] LABORATORY RBC 3.32 (L) 4.58 - [facility] 5.54 [facility] x10(6)/[facility] LABORATORY Hemoglobin 9.5 (L) 13.7 - [facility] 16.5 gm/dL [facility] LABORATORY Hematocrit 30.3 (L) 40.5 - [facility] SU 48.5 % [facility] LABORATORY MCV 91.3 82.9 - [facility] SU 93.1 [facility] LABORATORY MCH 28.6 27.5 - [place] [facility] 32.1 pg [facility] LABORATORY MCHC 31.4 (L) 32.0 - [facility] SU 35.7 gm/dL [facility] LABORATORY Platelets 263 145 - 357 [facility] x[facility](3[facility] LABORATORY RDWSD 54.8 (H) 36.0 - [facility] SU 45.0 [facility] RDWCV 16.5 (H) 11.4 - [facility] SU 13.8 % [facility] LABORATORY MPV 9.1 7.6 - 12.9 [facility] LABORATORY nRBC % Auto 0.0 % [facility] LABORATORY nRBC Abs Auto 0.000 0.000 - [facility] 0.000 [facility] x10(3)/[facility] LABORATORY Specimen Anatomical Collection Method Collection Time Receive d Time (Source) Location / / Volume Laterality Blood specimen 08/14/2017 4:52 AM 018 5:08 (specimen) EST AM EST Resulting Agency Comment Spec In Lab Yonathan Smith MD HEMATOLOGY ORDERABLES Performing Organization Address City/[facility]/[place] [address] (ABNORMAL) Prothrombin Time (08/14/2017 [...] Organization Address City/State/[place] [address] (ABNORMAL) Basic Metabolic Panel (non-fasting) (08/14/2017 4:52 AM EST) athologist Signature Glucose Lvl 135 65 - 199 [facility] mg/dL [facility] [...] or in patients with acute kidney failure. [email or web address] Specimen Anatomical Collection Method Collection Time Receive d Time (Source) Location / / Volume Laterality Blood specimen 08/14/2017 4:52 AM 018 5:08 (specimen) EST AM EST Resulting Agency Comment Spec In Lab Yonathan Smith MD CHEMISTRY ORDERABLES Performing Organization Address City/State/[place] [address] POCT Glucose (08/14/2017 3:56 AM EST) P athologist Signature POC Glucose 135 65 - 199 [facility] mg/dL [facility] LAB[facility]ORY Comment: Supplemental ranges: <140 mg/dL before meals <180 mg/dL all other times of the day Specimen Anatomical Collection Method Collection Time Receive d Time (Source) Location / / Volume Laterality Blood specimen 08/14/2017 3:56 AM 018 3:56 (specimen) EST AM EST Yonathan Smith MD POINT OF CARE TEST ORDERABLE S Performing Organization Address City/State/ZIP [place] [address] POCT Glucose (08/13/2017 11:13 PM EST) athologist Signature POC Glucose 118 65 - 199 [place] [facility] mg/dL [facility] LABORATORY Comment: Supplemental ranges: <140 mg/dL before meals <180 mg/dL all other times of the day Specimen Anatomical Collection Method Collection Time Receive d Time (Source) Location / / Volume Laterality Blood specimen 08/13/2017 11:13 8 (specimen) PM EST 11:13 PM EST Yonathan Smith MD POINT OF CARE TEST ORDERABLE S Performing Organization Address City/[facility]/ZIP [place] [address] (ABNORMAL) POCT Glucose (08/13/2017 8:08 PM EST) athologist Signature POC Glucose 204 (H) 65 - 199 [place] [facility] mg/dL [facility] LABORATORY Comment: Supplemental ranges: <140 mg/dL before meals <180 mg/dL all other times of the day Specimen Anatomical Collection Method Collection Time Receive d Time (Source) Location / / Volume Laterality Blood specimen 08/13/2017 8:08 PM 018 8:08 (specimen) EST PM EST Yonathan Smith MD POINT OF CARE TEST ORDERABLE S Performing Organization Address City/[facility]/ZIP Code [place] [address] POCT Glucose (08/13/2017 4:02 PM EST) athologist Signature POC Glucose 145 65 - 199 [place] [facility] mg/dL [facility] LAB[facility]ATORY Comment: Supplemental ranges: <140 mg/dL before meals <180 mg/dL all other times of the day Specimen Anatomical Collection Method Collection Time Receive d Time (Source) Location / / Volume Laterality Blood specimen 08/13/2017 4:02 PM 018 4:02 (specimen) EST PM EST Yonathan Smith MD POINT OF CARE TEST ORDERABLE S Performing Organization Address City/State/[place] [address] POCT Glucose (08/13/2017 11:31 AM EST) P athologist Signature POC Glucose 179 65 - 199 [facility] mg/dL [facility] LAB[facility]ORY Comment: Supplemental ranges: <140 mg/dL before meals <180 mg/dL all other times of the day Specimen Anatomical Collection Method Collection Time Receive d Time (Source) Location / / Volume Laterality Blood specimen 08/13/2017 11:31 8 (specimen) AM EST 11:31 AM EST Yonathan Smith MD POINT OF CARE TEST ORDERABLE S Performing Organization Address City/[facility]/[place] [address] (ABNORMAL) POCT Glucose (08/13/2017 10:16 AM EST) athologist Signature POC Glucose 211 (H) 65 - 199 [facility] mg/dL [facility]ORY Comment: Supplemental ranges: <140 mg/dL before meals <180 mg/dL all other times of the day Specimen Anatomical Collection Method Collection Time Receive d Time (Source) Location / / Volume Laterality Blood specimen 08/13/2017 10:16 8 (specimen) AM EST 10:16 AM EST Yonathan Smith MD POINT OF CARE TEST ORDERABLE S Performing Organization Address City/[facility]/ZIP Code Phon e Number [address] JULIAN, legs, multiple levels (08/13/2017 7:42 AM EST) Component Value Ref Test Analysis Performed At Patholo gist Range Method Time Signature VB Text Department: Vascular Surgery Lab VASCUBASE Report Patient: [id number] (GREGORY HOANG) CPT: 26241 ICD10: I99.8 Referring Physician: YONATHAN SMITH ?? Indications: s/p R 1,2,3 toe amps with red left foot, need n ew baseline Diabetes mellitus: yes ICD10 Diagnosis Code: I99.8 Findings: Right ?Pressure (mm Hg) ?? JULIAN ??Waveform ?TBI ?? Brachial Artery ?138 ? Dorsalis Pedis (Ankle) Arter y ?132 ? 0.94 ??[place]- Biphasic ? Posterior Tibial (Ankle) Art anila ??154 ? 1.10 ??[place]-Biphasic ? Fourth Toe ? 67 ? 0.48 [...] - 199 [place] mg/dL [facility] LABORATORY Comment: Supplemental ranges: <140 mg/dL before meals <180 mg/dL all other times of the day Specimen Anatomical Collection Method Collection Time Receive d Time (Source) Location / / Volume Laterality Blood specimen 08/13/2017 7:33 AM 018 7:33 (specimen) EST AM EST Yonathan Smith MD POINT OF CARE TEST ORDERABLE S Performing Organization Address City/State/[place] [address] (ABNORMAL) Differential, Automated (08/13/2017 5:33 AM EST) [facility] Method Time Signature Neutrophils % 77.8 % [facility] LABORATORY Neutr Abs (ANC) 7.83 (H) 1.70 - [facility] 6.10 [facility] x10(3)/[facility] L LABORATORY Lymphocytes % 8.4 % [facility] LABORATORY Lymphocytes Abs 0.8 (L) 0.9 - 3.2 [facility] x10(3)/[facility] LABORATORY Monocytes % 8.3 % [facility] LABORATORY Monocyte Abs 0.8 0.3 - 0.9 [facility] x10(3)/[facility] LABORATORY Eosinophils % 4.6 % [facility] LABORATORY Eosinophils Abs 0.5 (H) 0.0 - 0.4 [facility] x10(3)/[facility] LABORATORY Basophils % 0.5 % [facility] LABORATORY Basophils Abs 0.0 0.0 - 0.1 [facility] x10(3)/[facility] LABORATORY Immature Gran % 0.40 % [...] 0.04 0.00 - 0.04 x10(3)/[facility] Y [facility] LABORATORY Specimen Anatomical Collection Method Collection Time Receive d Time (Source) Location / / Volume Laterality Blood specimen 08/13/2017 5:33 AM 018 6:04 (specimen) EST AM EST Resulting Agency Comment Spec In Lab Yonathan Smith MD HEMATOLOGY ORDERABLES Performing Organization Address City/State/ZIP Code Phon e Number [address] (ABNORMAL) Hemogram (08/13/2017 5:33 AM EST) Analysis Performed At Patho logist Time Signature WBC 10.1 (H) 4.0 - 9.5 [facility] x10(3)/[facility] LABORATORY RBC 3.21 (L) 4.58 - [facility].54 [facility] x10(6)/[facility] LABORATORY Hemoglobin 9.2 (L) 13.7 - [facility] 16.5 gm/dL [facility] LABORATORY Hematocrit 29.6 (L) 40.5 - [facility] 48.5 % [facility] HOSPITAL LABORATORY MCV 92.2 82.9 - [facility]1 [facility] LABORATORY MCH 28.7 27.5 - [facility] 32.1 pg [facility] LABORATORY MCHC 31.1 (L) 32.0 - [facility]m/dL [facility] LABORATORY Platelets 263 145 - 357 [facility] x10(3)/[facility] LABORATORY RDWSD 54.8 (H) 36.0 - [facility] 45.0 [facility] LABORATORY RDWCV 16.4 (H) 11.4 - [facility] 13.8 % [facility] LABORATORY MPV 9.2 7.6 - 12.9 [facility] LABORATORY nRBC % Auto 0.0 % [facility] LABORATORY nRBC Abs Auto 0.000 0.000 - [facility] 0.000 [facility] x10(3)/[facility] LABORATORY Specimen Anatomical Collection Method Collection Time Receive d Time (Source) Location / / Volume Laterality Blood specimen 08/13/2017 5:33 AM 018 6:04 (specimen) EST AM EST Resulting Agency Comment Spec In Lab Yonathan Smith MD HEMATOLOGY ORDERABLES Performing Organization Address City/State/[place] [address] (ABNORMAL) Prothrombin Time (08/13/2017 [...] Organization Address City/State/ZIP Code Phon e Number [place] [id number] HOSPITAL LABORATORY Drive (ABNORMAL) Basic Metabolic Panel (non-fasting) (08/13/2017 5:33 AM EST) athologist Signature Glucose Lvl 126 65 - 199 [facility] mg/dL [facility] Estimated GFR >60 >=60 [facility] LABORATORY Comment: The reported eGFR should be multiplied b y 1.2 for patients. The MDRD is not an appropriate measure o f renal function for patients with body mass extremes or in patients with acute kidney failure. [email or web address] [email or web address]/DHMCnkf Specimen Anatomical Collection Method Collection Time Receive d Time (Source) Location / / Volume Laterality Blood specimen 08/13/2017 5:33 AM 018 6:04 (specimen) EST AM EST Resulting Agency Comment Spec In Lab Yonathan Smith MD CHEMISTRY ORDERABLES Performing Organization Address City/[facility]/ZIP [facility] [place], [place] Phon e Number [address] POCT Glucose (08/13/2017 4:29 AM EST) athologist Signature POC Glucose 111 65 - 199 [facility] mg/dL [facility] LABORATORY Comment: Supplemental ranges: <140 mg/dL before meals <180 mg/dL all other times of the day Specimen Anatomical Collection Method Collection Time Receive d Time (Source) Location / / Volume Laterality Blood specimen 08/13/2017 4:29 AM 018 4:29 (specimen) EST AM EST Yonathan Smith MD POINT OF CARE TEST ORDERABLE S Performing Organization Address City/[facility]/ZIP Code Phon e Number [address] POCT Glucose (08/12/2017 11:28 PM EST) athologist Signature POC Glucose 164 65 - 199 [facility] LABORATORY Comment: Supplemental ranges: <140 mg/dL before meals <180 mg/dL all other times of the day Specimen Anatomical Collection Method Collection Time Receive d Time (Source) Location / / Volume Laterality Blood specimen 08/12/2017 11:28 8 (specimen) PM EST 11:28 PM EST Yonathan Smith MD POINT OF CARE TEST ORDERABLE S Performing Organization Address City/[facility]/[place] [address] (ABNORMAL) POCT Glucose (08/12/2017 7:40 PM EST) athologist Signature POC Glucose 209 (H) 65 - 199 [facility] mg/dL [facility] LABORATORY Comment: Supplemental ranges: <140 mg/dL before meals <180 mg/dL all other times of the day Specimen Anatomical Collection Method Collection Time Receive d Time (Source) Location / / Volume Laterality Blood specimen 08/12/2017 7:40 PM 018 7:40 (specimen) EST PM EST Yonathan Smith MD POINT OF CARE TEST ORDERABLE S Performing Organization Address City/State/ZIP Code Phon e Number [address] POCT Glucose (08/12/2017 4:24 PM EST) athologist Signature POC Glucose 161 65 - 199 [facility] mg/dL [facility] LABORATORY Comment: Supplemental ranges: <140 mg/dL before meals <180 mg/dL all other times of the day Specimen Anatomical Collection Method Collection Time Receive d Time (Source) Location / / Volume Laterality Blood specimen 08/12/2017 4:24 PM 018 4:24 (specimen) EST PM EST Yonathan Smith MD POINT OF CARE TEST ORDERABLE S Performing Organization Address City/State/[place] [address] POCT Glucose (08/12/2017 12:00 PM EST) athologist Signature POC Glucose 167 65 - 199 [facility] mg/dL [facility] LABORATORY Comment: Supplemental ranges: <140 mg/dL before meals <180 mg/dL all other times of the day Specimen Anatomical Collection Method Collection Time Receive d Time (Source) Location / / Volume Laterality Blood specimen 08/12/2017 12:00 8 (specimen) PM EST 12:00 PM EST Yonathan Smith MD POINT OF CARE TEST ORDERABLE S Performing Organization Address City/State/[place] [address] POCT Glucose (08/12/2017 7:25 AM EST) P athologist Signature POC Glucose 152 65 - 199 [facility] mg/dL [facility] LABORATORY Comment: Supplemental ranges: <140 mg/dL before meals <180 mg/dL all other times of the day Specimen Anatomical Collection Method Collection Time Receive d Time (Source) Location / / Volume Laterality Blood specimen 08/12/2017 7:25 AM 018 7:25 (specimen) EST AM EST Yonathan Smith MD POINT OF CARE TEST ORDERABLE S Performing Organization Address City/State/[place] [address] (ABNORMAL) Differential, Automated (08/12/2017 6:29 AM EST) Patholo gist Method Time Signature Neutrophils % 78.7 % [facility] LABORATORY Neutr Abs (ANC) 7.94 (H) 1.70 - [facility] 6.10 [facility] x10(3)/[facility] LABORATORY Lymphocytes % 8.8 % [facility] LABORATORY Lymphocytes Abs 0.9 0.9 - 3.2 [facility] x10(3)/[facility] LABORATORY Monocytes % 7.8 % [facility] LABORATORY Monocyte Abs 0.8 0.3 - 0.9 [facility] x10(3)/[facility] LABORATORY Eosinophils % 3.9 % [facility] LABORATORY Eosinophils Abs 0.4 0.0 - 0.4 [facility] x10(3)/[facility] LABORATORY Basophils % 0.3 % [facility] LABORATORY Basophils Abs 0.0 0.0 - 0.1 [facility] x10(3)/[facility] LABORATORY Immature Gran % 0.50 % [...] 0.05 (H) 0.00 - 0.04 x10(3)/[facility] LABORATORY Specimen Anatomical Collection Method Collection Time Receive d Time (Source) Location / / Volume Laterality Blood specimen 08/12/2017 6:29 AM 018 6:38 (specimen) EST AM EST Resulting Agency Comment Spec In Lab Yonathan Smith MD HEMATOLOGY ORDERABLES Performing Organization Address City/State/[place] [address] (ABNORMAL) Hemogram (08/12/2017 6:29 AM EST) Analysis Performed At Patho logist Time Signature WBC 10.1 (H) 4.0 - 9.5 [facility] x10(3)/[facility] LABORATORY RBC 3.02 (L) 4.58 - [facility] 5.54 [facility] x10(6)/[facility] LABORATORY Hemoglobin 8.7 (L) 13.7 - [facility] 16.5 gm/dL [facility] LABORATORY Hematocrit 28.1 (L) 40.5 - [facility] 48.5 % [facility] LABORATORY MCV 93.0 82.9 - [facility] 93.1 [facility] LABORATORY MCH 28.8 27.5 - [facility] 32.1 pg [facility] LABORATORY MCHC 31.0 (L) 32.0 - [facility] 35.7 gm/dL [facility] LABORATORY Platelets 223 145 - 357 [facility] x10(3)/[facility] LABORATORY RDWSD 56.1 (H) 36.0 - [facility] 45.0 [facility] LABORATORY RDWCV 16.4 (H) 11.4 - [facility] SU 13.8 % [facility] LABORATORY MPV 9.0 7.6 - 12.9 [facility] LABORATORY nRBC % Auto 0.0 % [facility] LABORATORY nRBC Abs Auto 0.000 0.000 - [facility] SU 0.000 [facility] x10(3)/[facility] LABORATORY Specimen Anatomical Collection Method Collection Time Receive d Time (Source) Location / / Volume Laterality Blood specimen 08/12/2017 6:29 AM 018 6:38 (specimen) EST AM EST Resulting Agency Comment Spec In Lab Yonathan Smith MD HEMATOLOGY ORDERABLES Performing Organization Address City/[facility]/[place] [address] (ABNORMAL) Prothrombin Time (08/12/2017 [...] City/[facility]/[place] [address] (ABNORMAL) Basic Metabolic Panel (non-fasting) (08/12/2017 6:29 AM EST) athologist Signature Glucose Lvl 151 65 - 199 [facility] mg/dL [facility] Estimated GFR >60 >=60 [facility] LABORATORY Comment: The reported eGFR should be multiplied b y 1.2 for patients. The MDRD is not an appropriate measure o f renal function for patients with body mass extremes or in patients with acute kidney failure. http://Gowalla/DHnkdep http://G[place]alla/DHMCnkf Specimen Anatomical Collection Method Collection Time Receive d Time (Source) Location / / Volume Laterality Blood specimen 08/12/2017 6:29 AM 018 6:38 (specimen) EST AM EST Resulting Agency Comment Spec In Lab Yonathan Smith MD CHEMISTRY ORDERABLES Performing Organization Address City/[facility]/ZIP Code Phon e Number [address] POCT Glucose (08/12/2017 4:08 AM EST) athologist Signature POC Glucose 181 65 - 199 [facility] mg/dL [facility] LABORATORY Comment: Supplemental ranges: <140 mg/dL before meals <180 mg/dL all other times of the day Specimen Anatomical Collection Method Collection Time Receive d Time (Source) Location / / Volume Laterality Blood specimen 08/12/2017 4:08 AM 018 4:08 (specimen) EST AM EST Yonathan Smith MD POINT OF CARE TEST ORDERABLE S Performing Organization Address City/[facility]/[place] [address] (ABNORMAL) POCT Glucose (08/12/2017 12:17 AM EST) athologist Signature POC Glucose 221 (H) 65 - 199 [facility] mg/dL [facility] LABORATORY Comment: Supplemental ranges: <140 mg/dL before meals <180 mg/dL all other times of the day Specimen Anatomical Collection Method Collection Time Receive d Time (Source) Location / / Volume Laterality Blood specimen 08/12/2017 12:17 8 (specimen) AM EST 12:17 AM EST Yonathan Smith MD POINT OF CARE TEST ORDERABLE S Performing Organization Address City/State/[place] [address] (ABNORMAL) POCT Glucose (08/11/2017 8:52 PM EST) athologist Signature POC Glucose 221 (H) 65 - 199 [facility] mg/dL [facility] LABORATORY Comment: Supplemental ranges: <140 mg/dL before meals <180 mg/dL all other times of the day Specimen Anatomical Collection Method Collection Time Receive d Time (Source) Location / / Volume Laterality Blood specimen 08/11/2017 8:52 PM 018 8:52 (specimen) EST PM EST Yonathan Smith MD POINT OF CARE TEST ORDERABLE S Performing Organization Address City/[facility]/[place] [address] POCT Glucose (08/11/2017 5:59 PM EST) athologist Signature POC Glucose 169 65 - 199 [facility] mg/dL [facility] LABORATORY Comment: Supplemental ranges: <140 mg/dL before meals <180 mg/dL all other times of the day Specimen Anatomical Collection Method Collection Time Receive d Time (Source) Location / / Volume Laterality Blood specimen 08/11/2017 5:59 PM 018 5:59 (specimen) EST PM EST Yonathan Smith MD POINT OF CARE TEST ORDERABLE S Performing Organization Address City/State/[place] [address] (ABNORMAL) POCT Glucose (08/11/2017 4:08 PM EST) athologist Signature POC Glucose 240 (H) 65 - 199 [facility] mg/dL [facility] LABORATORY Comment: Supplemental ranges: <140 mg/dL before meals <180 mg/dL all other times of the day Specimen Anatomical Collection Method Collection Time Receive d Time (Source) Location / / Volume Laterality Blood specimen 08/11/2017 4:08 PM 018 4:08 (specimen) EST PM EST Yonathan Smith MD POINT OF CARE TEST ORDERABLE S Performing Organization Address City/State/ZIP Code Phon e Number [address] POCT Glucose (08/11/2017 12:04 PM EST) athologist Signature POC Glucose 182 65 - 199 [facility] LABORATORY Comment: Supplemental ranges: <140 mg/dL before meals <180 mg/dL all other times of the day Specimen Anatomical Collection Method Collection Time Receive d Time (Source) Location / / Volume Laterality Blood specimen 08/11/2017 12:04 8 (specimen) PM EST 12:04 PM EST Yonathan Smith MD POINT OF CARE TEST ORDERABLE S Performing Organization Address City/[facility]/[place] [address] POCT Glucose (08/11/2017 7:31 AM EST) athologist Signature POC Glucose 156 65 - 199 [facility] mg/dL [facility] LABORATORY Comment: Supplemental ranges: <140 mg/dL before meals <180 mg/dL all other times of the day Specimen Anatomical Collection Method Collection Time Receive d Time (Source) Location / / Volume Laterality Blood specimen 08/11/2017 7:31 AM 018 7:31 (specimen) EST AM EST Yonathan Smith MD POINT OF CARE TEST ORDERABLE S Performing Organization Address City/State/ZIP Code Phon e Number [address] (ABNORMAL) Differential, Automated (08/11/2017 6:16 AM EST) [facility] gist Method Time Signature Neutrophils % 83.7 % [facility] LABORATORY Neutr Abs (ANC) 10.76 (H) 1.70 - [facility] 6.10 [facility] x10(3)/[facility] LABORATORY Lymphocytes % 6.0 % [facility] LABORATORY Lymphocytes Abs 0.8 (L) 0.9 - 3.2 [facility] x10(3)/[facility] LABORATORY Monocytes % 7.5 % [facility] LABORATORY Monocyte Abs 1.0 (H) 0.3 - 0.9 [facility] x10(3)/[facility] LABORATORY Eosinophils % 2.0 % [facility] LABORATORY Eosinophils Abs 0.3 0.0 - 0.4 [facility] x10(3)/[facility] LABORATORY Basophils % 0.3 % [facility] LABORATORY Basophils Abs 0.0 0.0 - 0.1 [facility] x10(3)/[facility] LABORATORY Immature Gran % 0.50 % [...] Organization Address City/State/[place] [address] (ABNORMAL) Hemogram (08/11/2017 6:16 AM EST) Analysis Performed At Patho logist Time Signature WBC 12.9 (H) 4.0 - 9.5 [facility] x10(3)/[facility] LABORATORY RBC 3.28 (L) 4.58 - [facility] 5.54 [facility] x10(6)/[facility] LABORATORY Hemoglobin 9.5 (L) 13.7 - [facility] 16.5 gm/dL [facility] LABORATORY Hematocrit 29.8 (L) 40.5 - [facility] 48.5 % [facility] LABORATORY MCV 90.9 82.9 - [facility]1 [facility] LABORATORY MCH 29.0 27.5 - [facility] 32.1 [facility] LABORATORY MCHC 31.9 (L) 32.0 - [facility] 35.7 gm/dL [facility] Platelets 236 145 - 357 [facility] x10(3)/[facility] LABORATORY RDWSD 53.5 (H) 36.0 - [facility] 45.0 [facility] LABORATORY RDWCV 16.3 (H) 11.4 - [facility] 13.8 % [facility] LABORATORY MPV 8.8 7.6 - 12.9 [facility] nRBC % Auto 0.0 % [facility] nRBC Abs Auto 0.000 0.000 - [facility] 0.000 [facility] x10(3)/[facility] LABORATORY Specimen Anatomical Collection Method Collection Time Receive d Time (Source) Location / / Volume Laterality Blood specimen 08/11/2017 6:16 AM 018 6:24 (specimen) EST AM EST Resulting Agency Comment Spec In Lab Yonathan Smith MD HEMATOLOGY ORDERABLES Performing Organization Address City/State/ZIP Code Phon e Number [place] [id number] HOSPITAL LABORATORY Drive (ABNORMAL) Prothrombin Time (08/11/2017 [...] Organization Address City/State/[place] [address] Basic Metabolic Panel (non-fasting) (08/11/2017 6:16 AM EST) P athologist Signature Glucose Lvl 139 65 - 199 [facility] mg/dL [facility] Estimated GFR >60 >=60 [facility] LABORATORY Comment: The reported eGFR should be multiplied b y 1.2 for patients. The MDRD is not an appropriate measure o f renal function for patients with body mass extremes or in patients with acute kidney failure. http://[employer]/DHnkdep http://[employer]/DHMCnkf Specimen Anatomical Collection Method Collection Time Receive d Time (Source) Location / / Volume Laterality Blood specimen 08/11/2017 6:16 AM 018 6:24 (specimen) EST AM EST Resulting Agency Comment Spec In Lab Yonathan Smith MD CHEMISTRY ORDERABLES Performing Organization Address City/State/ZIP Code Phon e Number [address] POCT Glucose (08/11/2017 4:07 AM EST) athologist Signature POC Glucose 162 65 - 199 [facility] mg/dL [facility] LABORATORY Comment: Supplemental ranges: <140 mg/dL before meals <180 mg/dL all other times of the day Specimen Anatomical Collection Method Collection Time Receive d Time (Source) Location / / Volume Laterality Blood specimen 08/11/2017 4:07 AM 018 4:07 (specimen) EST AM EST Yonathan Smith MD POINT OF CARE TEST ORDERABLE S Performing Organization Address City/[facility]/ZIP Code Phon e Number [place] [address] POCT Glucose (08/10/2017 11:59 PM EST) athologist Signature POC Glucose 166 65 - 199 [facility] mg/dL [facility] LABORATORY Comment: Supplemental ranges: <140 mg/dL before meals <180 mg/dL all other times of the day Specimen Anatomical Collection Method Collection Time Receive d Time (Source) Location / / Volume Laterality Blood specimen 08/10/2017 11:59 8 (specimen) PM EST 11:59 PM EST Yonathan Smith MD POINT OF CARE TEST ORDERABLE S Performing Organization Address City/[facility]/ZIP Code Phon e Number [place] [address] POCT Glucose (08/10/2017 8:12 PM EST) athologist Signature POC Glucose 156 65 - 199 [facility] mg/dL [facility] LABORATORY Comment: Supplemental ranges: <140 mg/dL before meals <180 mg/dL all other times of the day Specimen Anatomical Collection Method Collection Time Receive d Time (Source) Location / / Volume Laterality Blood specimen 08/10/2017 8:12 PM 018 8:12 (specimen) EST PM EST Yonathan Smith MD POINT OF CARE TEST ORDERABLE S Performing Organization Address City/State/[place] [address] (ABNORMAL) POCT Glucose (08/10/2017 4:42 PM EST) P athologist Signature POC Glucose 211 (H) 65 - 199 [facility] mg/dL [facility] LABORATORY Comment: Supplemental ranges: <140 mg/dL before meals <180 mg/dL all other times of the day Specimen Anatomical Collection Method Collection Time Receive d Time (Source) Location / / Volume Laterality Blood specimen 08/10/2017 4:42 PM 018 4:42 (specimen) EST PM EST Yonathan Smith MD POINT OF CARE TEST ORDERABLE S Performing Organization Address City/State/ZIP Code Phon e Number [address] (ABNORMAL) Differential, Automated (08/10/2017 2:30 PM EST) Patholo gist Method Time Signature Neutrophils % 87.6 % [facility] LABORATORY Neutr Abs (ANC) 9.90 (H) 1.70 - [facility] 6.10 [facility] x10(3)/[facility] LABORATORY Lymphocytes % 4.3 % [facility] LABORATORY Lymphocytes Abs 0.5 (L) 0.9 - 3.2 [facility] x10(3)/[facility] LABORATORY Monocytes % 6.0 % [facility] LABORATORY Monocyte Abs 0.7 0.3 - 0.9 [facility] x10(3)/[facility] LABORATORY Eosinophils % 1.1 % [facility] LABORATORY Eosinophils Abs 0.1 0.0 - 0.4 [facility] x10(3)/[facility] LABORATORY Basophils % 0.4 % [facility] LABORATORY Basophils Abs 0.0 0.0 - 0.1 [facility] x10(3)/[facility] LABORATORY Immature Gran % [...] 0.07 (H) 0.00 - 0.04 x10(3)/[facility] LABORATORY Specimen Anatomical Collection Method Collection Time Receive d Time (Source) Location / / Volume Laterality Blood specimen 08/10/2017 2:30 PM 018 2:48 (specimen) EST PM EST Resulting Agency Comment Spec In Lab Yonathan Smith MD HEMATOLOGY ORDERABLES Performing Organization Address City/State/[place] [address] (ABNORMAL) Hemogram (08/10/2017 2:30 PM EST) Analysis Performed At Patho logist Time Signature WBC 11.3 (H) 4.0 - 9.5 [facility] x10(3)/[facility] LABORATORY RBC 3.13 (L) 4.58 - [facility] SU 5.54 [facility] x10(6)/[facility] LABORATORY Hemoglobin 8.9 (L) 13.7 - [facility] 16.[facility]m/dL [facility] LABORATORY Hematocrit 28.4 (L) 40.5 - [facility] 48.5 % [facility] LABORATORY MCV 90.7 82.9 - [facility] 93.1 [facility] LABORATORY MCH 28.4 27.5 - [facility] SU 32.1 pg [facility] LABORATORY MCHC 31.3 (L) 32.0 - [facility] 35.7 gm/dL [facility] LABORATORY Platelets 213 145 - 357 [facility] x10(3)/[facility] LABORATORY RDWSD 53.7 (H) 36.0 - [facility] SU 45.0 [facility] LABORATORY RDWCV 16.4 (H) 11.4 - [facility] SU 13.8 % [facility] LABORATORY MPV 8.9 7.6 - 12.9 [facility] LABORATORY nRBC % Auto 0.0 % [facility] LABORATORY nRBC Abs Auto 0.000 0.000 - [facility] SU 0.000 [facility] x10(3)/[facility] LABORATORY Specimen Anatomical Collection Method Collection Time Receive d Time (Source) Location / / Volume Laterality Blood specimen 08/10/2017 2:30 PM 018 2:48 (specimen) EST PM EST Resulting Agency Comment Spec In Lab Yonathan Smith MD HEMATOLOGY ORDERABLES Performing Organization Address City/State/[place] [address] (ABNORMAL) POCT Glucose (08/10/2017 1:50 PM EST) athologist Signature POC Glucose 243 (H) 65 - 199 [facility]/dL [facility] Comment: Supplemental ranges: <140 mg/dL before meals <180 mg/dL all other times of the day Specimen Anatomical Collection Method Collection Time Receive d Time (Source) Location / / Volume Laterality Blood specimen 08/10/2017 1:50 PM 018 1:50 (specimen) EST PM EST Yonathan Smith MD POINT OF CARE TEST ORDERABLE S Performing Organization Address City/[facility]/[place] [address] POCT Glucose (08/10/2017 11:21 AM EST) athologist Signature POC Glucose 156 65 - 199 [facility] mg/dL [facility] Comment: Supplemental ranges: <140 mg/dL before meals <180 mg/dL all other times of the day Specimen Anatomical Collection Method Collection Time Receive d Time (Source) Location / / Volume Laterality Blood specimen 08/10/2017 11:21 8 (specimen) AM EST 11:21 AM EST Yonathan Smith MD POINT OF CARE TEST ORDERABLE S Performing Organization Address City/State/[place] [address] (ABNORMAL) Differential, Automated (08/10/2017 10:28 AM EST) [facility] gist Method Time Signature Neutrophils % 85.3 % [facility] LABORATORY Neutr Abs (ANC) 9.43 (H) 1.70 - [facility] SU 6.10 [facility] x10(3)/[facility] L LABORATORY Lymphocytes % 5.5 % [facility] LABORATORY Lymphocytes Abs 0.6 (L) 0.9 - 3.2 [facility] x10(3)/[facility] LABORATORY Monocytes % 5.9 % [facility] LABORATORY Monocyte Abs 0.6 0.3 - 0.9 [facility] x10(3)/[facility] LABORATORY Eosinophils % 2.1 % [facility] LABORATORY Eosinophils Abs 0.2 0.0 - 0.4 [facility] x10(3)/[facility] LABORATORY Basophils % 0.4 % [facility] LABORATORY Basophils Abs 0.0 0.0 - 0.1 [facility] x10(3)/[facility] LABORATORY Immature Gran % 0.80 % [...] 0.09 (H) 0.00 - 0.04 x10(3)/[facility] LABORATORY Specimen Anatomical Collection Method Collection Time Receive d Time (Source) Location / / Volume Laterality Blood specimen 08/10/2017 10:28 8 (specimen) AM EST 10:35 AM EST Resulting Agency Comment Spec In Lab Yonathan Smith MD HEMATOLOGY ORDERABLES Performing Organization Address City/State/[place] [address] (ABNORMAL) Hemogram (08/10/2017 10:28 AM EST) Analysis Performed At Patho logist Time Signature WBC 11.0 (H) 4.0 - 9.5 [facility] x10(3)/[facility] LABORATORY RBC 3.02 (L) 4.58 - [facility] 5.54 [facility] x10(6)/[facility] LABORATORY Hemoglobin 8.8 (L) 13.7 - [facility] 16.5 gm/dL [facility] LABOR[facility]ORY Hematocrit 28.1 (L) 40.5 - [place] DAVIS 48.5 % [facility] MCV 93.0 82.9 - [facility] 93.1 [facility] LABORATORY MCH 29.1 27.5 - [facility]A OLIVASCK 32.1 pg [facility] LABORATORY MCHC 31.3 (L) 32.0 - [facility] DAVIS 35.7 gm/dL [facility] LABORATORY Platelets 207 145 - 357 [facility] MANGUM x10(3)/[facility] LABORATORY RDWSD 55.3 (H) 36.0 - [place] OLIVASCK 45.0 [facility] LABORATORY RDWCV 16.4 (H) 11.4 - [place] SU 13.8 % [facility] LABORATORY MPV 9.0 7.6 - 12.9 [facility] LABORATORY nRBC % Auto 0.0 % [facility] LABORATORY nRBC Abs Auto 0.000 0.000 - [place] ZHAOSU 0.000 [facility] x10(3)/[facility] LABORATORY Specimen Anatomical Collection Method Collection Time Receive d Time (Source) Location / / Volume Laterality Blood specimen 08/10/2017 10:28 8 (specimen) AM EST 10:35 AM EST Resulting Agency Comment Spec In Lab Yonathan Smith MD HEMATOLOGY ORDERABLES Performing Organization Address City/State/ZIP Code Phon e Number [place] [id number] HOSPITAL LAB[address]ORY Drive VS Angiogram/intervention (vascular) (08/10/2017 [...] 2.5x80 5. Completion RLE angiogram 6. L [employer] angiogram 7. 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 - [employer] angriogram demonstrated: High fe moral bifurcation over the proximal half of the femoral head. L [employer] access in the distal [employer]. - Closure device: Mynx Technical Procedure: ?The [...] for a 45cm 5F Destination. V18 and [place] a nd QuickCross catheters were used to [...] bifurcation. Access appeared in the distal [employer]. Closure and sheath removal was performed with [...] 2.5x80 5. Completion RLE angiogram 6. L [employer] angiogram 7. 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 - [employer] angriogram demonstrated: High fe moral bifurcation over the proximal half of the femoral head. L [employer] access in the distal [employer]. - Closure device: Mynx Technical Procedure: The [...] for a 45cm 5F Destination. V18 and [place] a nd QuickCross catheters were used to [...] bifurcation. Access appeared in the distal [employer]. Closure and sheath removal was performed with [...] Differential, Automated (08/10/2017 5:50 AM EST) [facility] Method Time Signature Neutrophils % 80.1 % [facility] LABORATORY Neutr Abs (ANC) 9.01 (H) 1.70 - [facility] 6.10 [facility] x10(3)/[facility] LABORATORY Lymphocytes % 8.8 % [facility] LABORATORY Lymphocytes Abs 1.0 0.9 - 3.2 [facility](3[facility] LABORATORY Monocytes % 8.3 % [facility] LABORATORY Monocyte Abs 0.9 0.3 - 0.9 [facility] x[facility](3[facility] LABORATORY Eosinophils % 2.0 % [facility] LABORATORY Eosinophils Abs 0.2 0.0 - 0.4 [facility] x10(3)/[facility] LABORATORY Basophils % 0.4 % [facility] LABORATORY Basophils Abs 0.0 0.0 - 0.1 [facility] x10(3)/[facility] LABORATORY Immature Gran % 0.40 % [...] 0.05 (H) 0.00 - 0.04 x10(3)/[facility] LABORATORY Specimen Anatomical Collection Method Collection Time Receive d Time (Source) Location / / Volume Laterality Blood specimen 08/10/2017 5:50 AM 018 5:59 (specimen) EST AM EST Resulting Agency Comment Spec In Lab Yonathan Smith MD HEMATOLOGY ORDERABLES Performing Organization Address City/State/[place] [address] (ABNORMAL) Hemogram (08/10/2017 5:50 AM EST) Analysis Performed At Patho logist Time Signature WBC 11.3 (H) 4.0 - 9.5 [facility] x10(3)/[facility] LABORATORY RBC 3.15 (L) 4.58 - [facility] 5.54 [facility] x10(6)/[facility] LABORATORY Hemoglobin 8.9 (L) 13.7 - [facility] 16.5 gm/dL [facility] LAB[facility]ORY Hematocrit 29.0 (L) 40.5 - [facility] 48.5 % [facility] LAB[facility]ATORY MCV 92.1 82.9 - [facility] 93.1 [facility] LABORATORY MCH 28.3 27.5 - [place] SU 32.1 pg [facility] LABORATORY MCHC 30.7 (L) 32.0 - [facility] 35.7 gm/dL [facility] Platelets 231 145 - 357 [facility] x10(3)/[facility] LABORATORY RDWSD 53.9 (H) 36.0 - [place] SU 45.0 [facility] LABORATORY RDWCV 16.2 (H) 11.4 - [facility] SU 13.8 % [facility] LABORATORY MPV 8.7 7.6 - 12.9 [facility] LABORATORY nRBC % Auto 0.0 % [facility] LABORATORY nRBC Abs Auto 0.000 0.000 - [facility] 0.000 [facility] x10(3)/[facility] LABORATORY Specimen Anatomical Collection Method Collection Time Receive d Time (Source) Location / / Volume Laterality Blood specimen 08/10/2017 5:50 AM 018 5:59 (specimen) EST AM EST Resulting Agency Comment Spec In Lab Yonathan Smith MD HEMATOLOGY ORDERABLES Performing Organization Address City/State/[place] [address] (ABNORMAL) Basic Metabolic Panel (non-fasting) (08/10/2017 5:50 AM EST) P athologist Signature Glucose Lvl 135 65 - 199 [facility] mg/dL [facility] Estimated GFR >60 >=60 [facility] LABORATORY Comment: The reported eGFR should be multiplied b y 1.2 for patients. The MDRD is not an appropriate measure o f renal function for patients with body mass extremes or in patients with acute kidney failure. [email or web address] [email or web address] Specimen Anatomical Collection Method Collection Time Receive d Time (Source) Location / / Volume Laterality Blood specimen 08/10/2017 5:50 AM 018 5:59 (specimen) EST AM EST Resulting Agency Comment Spec In Lab Yonathan Smith MD CHEMISTRY ORDERABLES Performing Organization Address [facility] [place] [address] (ABNORMAL) Prothrombin Time (08/10/2017 [...] HEMATOLOGY ORDERABLES Performing Organization Address City/[facility] [place] [address] (ABNORMAL) POCT Glucose (08/10/2017 4:01 AM EST) athologist Signature POC Glucose 206 (H) 65 - 199 [facility] mg/dL [facility] LAB[facility] Comment: Supplemental ranges: <140 mg/dL before meals <180 mg/dL all other times of the day Specimen Anatomical Collection Method Collection Time Receive d Time (Source) Location / / Volume Laterality Blood specimen 08/10/2017 4:01 AM 018 4:01 (specimen) EST AM EST Yonathan Smith MD POINT OF CARE TEST ORDERABLE S Performing Organization Address City/State/[place] [address] POCT Glucose (08/10/2017 2:01 AM EST) athologist Signature POC Glucose 188 65 - 199 [facility] mg/dL [facility] Comment: Supplemental ranges: <140 mg/dL before meals <180 mg/dL all other times of the day Specimen Anatomical Collection Method Collection Time Receive d Time (Source) Location / / Volume Laterality Blood specimen 08/10/2017 2:01 AM 018 2:01 (specimen) EST AM EST Yonathan Smith MD POINT OF CARE TEST ORDERABLE S Performing Organization Address City/[facility]/[place] [address] (ABNORMAL) POCT Glucose (08/09/2017 11:42 PM EST) athologist Signature POC Glucose 283 (H) 65 - 199 [facility] SU mg/dL [facility] Comment: Supplemental ranges: <140 mg/dL before meals <180 mg/dL all other times of the day Specimen Anatomical Collection Method Collection Time Receive d Time (Source) Location / / Volume Laterality Blood specimen 08/09/2017 11:42 8 (specimen) PM EST 11:42 PM EST Yonathan Smith MD POINT OF CARE TEST ORDERABLE S Performing Organization Address City/State/[place] [address] POCT Glucose (08/09/2017 8:55 PM EST) athologist Signature POC Glucose 182 65 - 199 [facility] mg/dL [facility] LAB[facility]ORY Comment: Supplemental ranges: <140 mg/dL before meals <180 mg/dL all other times of the day Specimen Anatomical Collection Method Collection Time Receive d Time (Source) Location / / Volume Laterality Blood specimen 08/09/2017 8:55 PM 018 8:55 (specimen) EST PM EST Yonathan Smith MD POINT OF CARE TEST ORDERABLE S Performing Organization Address City/[facility]/[place] [address] (ABNORMAL) APTT (08/09/2017 6:42 [...] City/[facility]/[place] [address] POCT Glucose (08/09/2017 4:41 PM EST) athologist Signature POC Glucose 195 65 - 199 [facility] mg/dL [facility] Comment: Supplemental ranges: <140 mg/dL before meals <180 mg/dL all other times of the day Specimen Anatomical Collection Method Collection Time Receive d Time (Source) Location / / Volume Laterality Blood specimen 08/09/2017 4:41 PM 018 4:41 (specimen) EST PM EST Yonathan Smith MD POINT OF CARE TEST ORDERABLE S Performing Organization Address City/[facility]/[place] [address] POCT Glucose (08/09/2017 12:29 PM EST) athologist Signature POC Glucose 140 65 - 199 [facility] mg/dL [facility] Comment: Supplemental ranges: <140 mg/dL before meals <180 mg/dL all other times of the day Specimen Anatomical Collection Method Collection Time Receive d Time (Source) Location / / Volume Laterality Blood specimen 08/09/2017 12:29 8 (specimen) PM EST 12:29 PM EST Yonathan Smith MD POINT OF CARE TEST ORDERABLE S Performing Organization Address [facility]/ZIP Code Phon e Number [address] POCT Glucose (08/09/2017 9:59 AM EST) P athologist Signature POC Glucose 135 65 - 199 [facility] mg/dL [facility] LAB[facility]ORY Comment: Supplemental ranges: <140 mg/dL before meals <180 mg/dL all other times of the day Specimen Anatomical Collection Method Collection Time Receive d Time (Source) Location / / Volume Laterality Blood specimen 08/09/2017 9:59 AM 018 9:59 (specimen) EST AM EST Yonathan Smith MD POINT OF CARE TEST ORDERABLE S Performing Organization Address [facility]/[place] [address] Specimen to Pathology (08/09/2017 [...] City/[facility]/[place] [address] Surgical Pathology Report (08/09/2017 8:40 AM EST) Component Value Ref Test Analysis Performed At Patholo gist Range Method Time Signature Surgical [id number] ? Location: [facility]; [facility]; [facility] The signing pathologist [...] Flower Verified: ??08/13/2017 ?Pathologist Performed at: ??-[facility] Dept. of Pathology, [place], [place] CLINICAL INFORMATION Specimen Submitted: A - [...] Organization Address City/State/[place] [address] Anaerobic Culture (08/09/2017 8:30 AM EST) [facility] Method Time Signature Anaerobic No anaerobic [...] GENERAL ORDER ROBSON Performing Organization Address City/[facility]/[place] [address] (ABNORMAL) Abscess/Wound Aspirate Culture (08/09/2017 8:30 AM EST) [facility] [employer] Method Time Signature Abscess/Wound Moderate mixed [facility] Aspirate bacterial MANGUM Culture morphotypes [facility] normal LABORATORY cutaneous leroy (A) Gram Stain Rare White Blood Cells BARBARA Few Gram Positive Cocci in pairs MANGUM () [facility] LABOR[facility]ORY Organism Gram Positive BARBARA Cocci in pairs MANGUM () [facility] LABORATORY Specimen [...] GENERAL ORDER ROBSON Performing Organization Address City/[facility]/ZIP Code [place] [address] POCT Glucose (08/09/2017 4:28 AM EST) P athologist Signature POC Glucose 128 65 - 199 [facility] mg/dL [facility] LAB[facility] Comment: Supplemental ranges: <140 mg/dL before meals <180 mg/dL all other times of the day Specimen Anatomical Collection Method Collection Time Receive d Time (Source) Location / / Volume Laterality Blood specimen 08/09/2017 4:28 AM 018 4:28 (specimen) EST AM EST Yonathan Smith MD POINT OF CARE TEST ORDERABLE S Performing Organization Address City/State/[place] [address] ABORH Recheck Status (08/09/2017 1:10 AM EST) [facility] Method Time Signature ABORH Type Completed [facility] LABORATORY Specimen Anatomical Collection Method Collection Time Receive d Time (Source) Location / / Volume Laterality Blood specimen 08/09/2017 1:10 AM 018 1:35 (specimen) EST AM EST Resulting Agency Comment Spec In Lab Yonathan Smith MD BLOOD BANK ORDERABLES Performing Organization Address City/State/[place] [address] Antibody screen (08/09/2017 1:10 AM EST) [facility] Method [place] Signature Ab Screen Negative [facility] LABORATORY Expires at 08/12/2017 [facility] [id number] on: [facility] LABORATORY Specimen Anatomical Collection Method Collection Time Receive d Time (Source) Location / / Volume Laterality Blood specimen 08/09/2017 1:10 AM 018 1:35 (specimen) EST AM EST Resulting Agency Comment Spec In Lab Yonathan Smith MD BLOOD BANK ORDERABLES Performing Organization Address City/State/[place] [address] ABO/Rh Typing (08/09/2017 1:10 [...] Organization Address City/State/[place] [address] (ABNORMAL) APTT (08/09/2017 1:10 [...] Organization Address City/State/[place] [address] (ABNORMAL) Differential, Automated (08/09/2017 1:10 AM EST) [facility] Method Time Signature Neutrophils % 76.2 % [facility] LABORATORY Neutr Abs (ANC) 8.59 (H) 1.70 - [facility] 6.10 [facility] x10(3)/[facility] LABORATORY Lymphocytes % 11.0 % [facility] LABORATORY Lymphocytes Abs 1.2 0.9 - 3.2 [facility] x10(3)/[facility] LABORATORY Monocytes % 8.4 % [facility] LABORATORY Monocyte Abs 1.0 (H) 0.3 - 0.9 [facility] x10(3)/[facility] LABORATORY Eosinophils % 3.5 % [facility] LABORATORY Eosinophils Abs 0.4 0.0 - 0.4 [facility] x10(3)/[facility] LABORATORY Basophils % 0.5 % [facility] LABORATORY Basophils Abs 0.1 0.0 - 0.1 [facility] x10(3)/[facility] LABORATORY Immature Gran % 0.40 % [...] 0.05 (H) 0.00 - 0.04 x10(3)/[facility] LABORATORY Specimen Anatomical Collection Method Collection Time Receive d Time (Source) Location / / Volume Laterality Blood specimen 08/09/2017 1:10 AM 018 1:19 (specimen) EST AM EST Resulting Agency Comment Spec In Lab Yonathan Smith MD HEMATOLOGY ORDERABLES Performing Organization Address City/State/[place] [address] (ABNORMAL) Hemogram (08/09/2017 1:10 AM EST) Analysis Performed At Patho logist Time Signature WBC 11.3 (H) 4.0 - 9.5 [facility] x10(3)/[facility] LABORATORY RBC 3.47 (L) 4.58 - [facility] 5.54 [facility] x10(6)/[facility] LABORATORY Hemoglobin 10.0 (L) 13.7 - [facility] 16.5 gm/dL [facility] LABORATORY Hematocrit 31.9 (L) 40.5 - [facility] 48.5 % [facility] LABORATORY MCV 91.9 82.9 - [facility] 93.1 [facility] LABORATORY MCH 28.8 27.5 - [facility] 32.1 pg [facility] LABORATORY MCHC 31.3 (L) 32.0 - [facility] 35.7 gm/dL [facility] LABORATORY Platelets 234 145 - 357 [facility] x10(3)/[facility] LABORATORY RDWSD 54.0 (H) 36.0 - [facility] SU 45.0 [facility] LABORATORY RDWCV 16.2 (H) 11.4 - [facility] SU 13.8 % [facility] LABORATORY MPV 8.7 7.6 - 12.9 [facility] LABORATORY nRBC % Auto 0.0 % [facility] LABORATORY nRBC Abs Auto 0.000 0.000 - [facility] SU 0.000 [facility] x10(3)/[facility] LABORATORY Specimen Anatomical Collection Method Collection Time Receive d Time (Source) Location / / Volume Laterality Blood specimen 08/09/2017 1:10 AM 018 1:19 (specimen) EST AM EST Resulting Agency Comment Spec In Lab Yonathan Smith MD HEMATOLOGY ORDERABLES Performing Organization Address City/[facility]/[place] [address] (ABNORMAL) Prothrombin Time (08/09/2017 [...] City/[facility]/[place] [address] (ABNORMAL) Basic Metabolic Panel (non-fasting) (08/09/2017 1:10 AM EST) P athologist Signature Glucose Lvl 108 65 - 199 [facility] mg/dL [facility] [...] or in patients with acute kidney failure. [email or web address] [email or web address] Specimen Anatomical Collection Method Collection Time Receive d Time (Source) Location / / Volume Laterality Blood specimen 08/09/2017 1:10 AM 018 1:19 (specimen) EST AM EST Resulting Agency Comment Spec In Lab Yonathan Smith MD CHEMISTRY ORDERABLES Performing Organization Address City/State/ZIP Code Phon e Number [address] POCT Glucose (08/09/2017 12:05 AM EST) athologist Signature POC Glucose 128 65 - 199 [facility] mg/dL [facility] LABORATORY Comment: Supplemental ranges: <140 mg/dL before meals <180 mg/dL all other times of the day Specimen Anatomical Collection Method Collection Time Receive d Time (Source) Location / / Volume Laterality Blood specimen 08/09/2017 12:05 8 (specimen) AM EST 12:05 AM EST Yonathan Smith MD POINT OF CARE TEST ORDERABLE S Performing Organization Address City/[facility]/[place] [address] (ABNORMAL) POCT Glucose (08/08/2017 7:36 PM EST) athologist Signature POC Glucose 215 (H) 65 - 199 [facility]dL [facility] LABORATORY Comment: Supplemental ranges: <140 mg/dL before meals <180 mg/dL all other times of the day Specimen Anatomical Collection Method Collection Time Receive d Time (Source) Location / / Volume Laterality Blood specimen 08/08/2017 7:36 PM 018 7:36 (specimen) EST PM EST Yonathan Smith MD POINT OF CARE TEST ORDERABLE S Performing Organization Address City/State/[place] [address] (ABNORMAL) POCT Glucose (08/08/2017 6:23 PM EST) P athologist Signature POC Glucose 216 (H) 65 - 199 [facility] mg/dL [facility] LABORATORY Comment: Supplemental ranges: <140 mg/dL before meals <180 mg/dL all other times of the day Specimen Anatomical Collection Method Collection Time Receive d Time (Source) Location / / Volume Laterality Blood specimen 08/08/2017 6:23 PM 018 6:23 (specimen) EST PM EST Yonathan Smith MD POINT OF CARE TEST ORDERABLE S Performing Organization Address City/[facility]/[place] [address] (ABNORMAL) APTT (08/08/2017 6:00 [...] City/[facility]/[place] [address] POCT Glucose (08/08/2017 4:42 PM EST) athologist Signature POC Glucose 78 65 - 199 [facility] LABORATORY Comment: Supplemental ranges: <140 mg/dL before meals <180 mg/dL all other times of the day Specimen Anatomical Collection Method Collection Time Receive d Time (Source) Location / / Volume Laterality Blood specimen 08/08/2017 4:42 PM 018 4:42 (specimen) EST PM EST Yonathan Smith MD POINT OF CARE TEST ORDERABLE S Performing Organization Address City/State/[place] [address] (ABNORMAL) POCT Glucose (08/08/2017 4:01 PM EST) athologist Signature POC Glucose 58 (L) 65 - 199 [facility] mg[facility]dL [facility] LABORATORY Comment: Supplemental ranges: <140 mg/dL before meals <180 mg/dL all other times of the day Specimen Anatomical Collection Method Collection Time Receive d Time (Source) Location / / Volume Laterality Blood specimen 08/08/2017 4:01 PM 018 4:01 (specimen) EST PM EST Yonathan Smith MD POINT OF CARE TEST ORDERABLE S Performing Organization Address City/State/[place] [address] POCT Glucose (08/08/2017 11:51 AM EST) athologist Signature POC Glucose 90 65 - 199 [facility]dL [facility] LABORATORY Comment: Supplemental ranges: <140 mg/dL before meals <180 mg/dL all other times of the day Specimen Anatomical Collection Method Collection Time Receive d Time (Source) Location / / Volume Laterality Blood specimen 08/08/2017 11:51 8 (specimen) AM EST 11:51 AM EST Yonathan Smith MD POINT OF CARE TEST ORDERABLE S Performing Organization Address City/State/[place] [address] (ABNORMAL) APTT (08/08/2017 10:27 [...] Address City/State/ZIP Code Phon e Number [address] POCT Glucose (08/08/2017 8:02 AM EST) athologist Signature POC Glucose 178 65 - 199 [facility] mg/dL [facility] LABORATORY Comment: Supplemental ranges: <140 mg/dL before meals <180 mg/dL all other times of the day Specimen Anatomical Collection Method Collection Time Receive d Time (Source) Location / / Volume Laterality Blood specimen 08/08/2017 8:02 AM 018 8:02 (specimen) EST AM EST Yonathan Smith MD POINT OF CARE TEST ORDERABLE S Performing Organization Address City/[facility]/[place] [address] (ABNORMAL) APTT (08/08/2017 4:51 AM EST) athologist Signature PTT >160 25 - 35 [facility] (Critical) sec [facility] LABORATORY Comment: Called by: HOWARD, Read [...] Organization Address City/State/[place] [address] (ABNORMAL) Differential, Automated (08/08/2017 4:51 AM EST) [facility] gist Method Time Signature Neutrophils % 77.9 % [facility] LABORATORY Neutr Abs (ANC) 8.17 (H) 1.70 - [facility] 6.10 [facility] x10(3)/[facility] LABORATORY Lymphocytes % 10.3 % [facility] LABORATORY Lymphocytes Abs 1.1 0.9 - 3.2 [facility] x10(3)/[facility] LABORATORY Monocytes % 7.0 % [facility] LABORATORY Monocyte Abs 0.7 0.3 - 0.9 [facility] x10(3)/[facility] LABORATORY Eosinophils % 3.6 % [facility] LABORATORY Eosinophils Abs 0.4 0.0 - 0.4 [facility] x10(3)/[facility] LABORATORY Basophils % 0.5 % [facility] LABORATORY Basophils Abs 0.0 0.0 - 0.1 [facility] x10(3)/[facility] LABORATORY Immature Gran % [...] 0.07 (H) 0.00 - 0.04 x10(3)/[facility] LABORATORY Specimen Anatomical Collection Method Collection Time Receive d Time (Source) Location / / Volume Laterality Blood specimen 08/08/2017 4:51 AM 018 5:14 (specimen) EST AM EST Resulting Agency Comment Spec In Lab Yonathan Smith MD HEMATOLOGY ORDERABLES Performing Organization Address City/State/[place] [address] (ABNORMAL) Hemogram (08/08/2017 4:51 AM EST) Analysis Performed At Patho logist Time Signature WBC 10.5 (H) 4.0 - 9.5 [facility] x10(3[facility] LABORATORY RBC 3.27 (L) 4.58 - [facility] 5.54 [facility] x10(6)/[facility] LABORATORY Hemoglobin 9.3 (L) 13.7 - [facility] 16.5 gm/dL [facility] LABORATORY Hematocrit 30.3 (L) 40.5 - [facility] 48.5 % [facility] LABORATORY MCV 92.7 82.9 - [facility] 93.1 [facility] LABORATORY MCH 28.4 27.5 - [facility] 32.1 pg [facility] LABORATORY MCHC 30.7 (L) 32.0 - [facility] 35.7 gm/dL [facility] LABORATORY Platelets 252 145 - 357 [facility] x10(3)/[facility] LABORATORY RDWSD 54.6 (H) 36.0 - [facility] 45.0 [facility] LABORATORY RDWCV 16.2 (H) 11.4 - [facility] 13.8 % [facility] LABORATORY MPV 9.1 7.6 - 12.9 [facility] LABORATORY nRBC % Auto 0.0 % [facility] LABORATORY nRBC Abs Auto 0.000 0.000 - [facility] 0.000 [facility] x10(3)/[facility] LABORATORY Specimen Anatomical Collection Method Collection Time Receive d Time (Source) Location / / Volume Laterality Blood specimen 08/08/2017 4:51 AM 018 5:14 (specimen) EST AM EST Resulting Agency Comment Spec In Lab Yonathan Simth MD HEMATOLOGY ORDERABLES Performing Organization Address City/State/[place] [address] (ABNORMAL) Prothrombin Time (08/08/2017 [...] Organization Address City/State/[place] [address] (ABNORMAL) Basic Metabolic Panel (non-fasting) (08/08/2017 4:51 AM EST) athologist Signature Glucose Lvl 229 (H) 65 - 199 [facility] mg/dL [facility] [...] or in patients with acute kidney failure. [email or web address] Specimen Anatomical Collection Method Collection Time Receive d Time (Source) Location / / Volume Laterality Blood specimen 08/08/2017 4:51 AM 018 5:14 (specimen) EST AM EST Resulting Agency Comment Spec In Lab Yonathan Smith MD CHEMISTRY ORDERABLES Performing Organization Address City/[facility]/ZIP Code Phon e Number [address] POCT Glucose (08/08/2017 4:20 AM EST) athologist Signature POC Glucose 193 65 - 199 [facility] mg/dL [facility] LABORATORY Comment: Supplemental ranges: <140 mg/dL before meals <180 mg/dL all other times of the day Specimen Anatomical Collection Method Collection Time Receive d Time (Source) Location / / Volume Laterality Blood specimen 08/08/2017 4:20 AM 018 4:20 (specimen) EST AM EST Yonathan Smith MD POINT OF CARE TEST ORDERABLE S Performing Organization Address City/State/ZIP Code Phon e Number [address] POCT Glucose (08/07/2017 11:11 PM EST) athologist Signature POC Glucose 124 65 - 199 [facility] LABORATORY Comment: Supplemental ranges: <140 mg/dL before meals <180 mg/dL all other times of the day Specimen Anatomical Collection Method Collection Time Receive d Time (Source) Location / / Volume Laterality Blood specimen 08/07/2017 11:11 8 (specimen) PM EST 11:11 PM EST Yonathan Smith MD POINT OF CARE TEST ORDERABLE S Performing Organization Address City/[facility]/[place] [address] (ABNORMAL) APTT (08/07/2017 10:18 [...] City/[facility]/[place] [address] POCT Glucose (08/07/2017 8:10 PM EST) athologist Signature POC Glucose 140 65 - 199 [facility] mg/dL [facility] LABORATORY Comment: Supplemental ranges: <140 mg/dL before meals <180 mg/dL all other times of the day Specimen Anatomical Collection Method Collection Time Receive d Time (Source) Location / / Volume Laterality Blood specimen 08/07/2017 8:10 PM 018 8:10 (specimen) EST PM EST Yonathan Smith MD POINT OF CARE TEST ORDERABLE S Performing Organization Address City/[facility]/[place] [address] POCT Glucose (08/07/2017 5:27 PM EST) athologist Signature POC Glucose 187 65 - 199 [facility] mg/dL [facility] LABORATORY Comment: Supplemental ranges: <140 mg/dL before meals <180 mg/dL all other times of the day Specimen Anatomical Collection Method Collection Time Receive d Time (Source) Location / / Volume Laterality Blood specimen 08/07/2017 5:27 PM 018 5:27 (specimen) EST PM EST Yonathan Smith MD POINT OF CARE TEST ORDERABLE S Performing Organization Address City/[facility]/[place] [address] POCT Glucose (08/07/2017 3:29 PM EST) athologist Signature POC Glucose 86 65 - 199 [facility] mg/dL [facility] LABORATORY Comment: Supplemental ranges: <140 mg/dL before meals <180 mg/dL all other times of the day Specimen Anatomical Collection Method Collection Time Receive d Time (Source) Location / / Volume Laterality Blood specimen 08/07/2017 3:29 PM 018 3:29 (specimen) EST PM EST Yonathan Smith MD POINT OF CARE TEST ORDERABLE S Performing Organization Address [facility]/ZIP [facility] [place] [place] [address] (ABNORMAL) APTT (08/07/2017 2:50 [...] ORDERABLES Performing Organization Address City/[facility]/ZIP [facility] [place] [place] Phon e Number [address] (ABNORMAL) POCT Glucose (08/07/2017 2:23 PM EST) athologist Signature POC Glucose 55 (L) 65 - 199 [facility] mg/dL [facility] LABORATORY Comment: Supplemental ranges: <140 mg/dL before meals <180 mg/dL all other times of the day Specimen Anatomical Collection Method Collection Time Receive d Time (Source) Location / / Volume Laterality Blood specimen 08/07/2017 2:23 PM 018 2:23 (specimen) EST PM EST Yonathan Smith MD POINT OF CARE TEST ORDERABLE S Performing Organization Address City/State/ZIP Code Phon e Number [address] POCT Glucose (08/07/2017 12:08 PM EST) P athologist Signature POC Glucose 77 65 - 199 [facility] mg/dL [facility] LABORATORY Comment: Supplemental ranges: <140 mg/dL before meals <180 mg/dL all other times of the day Specimen Anatomical Collection Method Collection Time Receive d Time (Source) Location / / Volume Laterality Blood specimen 08/07/2017 12:08 8 (specimen) PM EST 12:08 PM EST Yonathan Smith MD POINT OF CARE TEST ORDERABLE S Performing Organization Address City/State/ZIP Code Phon e Number [address] (ABNORMAL) Differential, Automated (08/07/2017 7:30 AM EST) Patholo gist Method Time Signature Neutrophils % 73.8 % [facility] LABORATORY Neutr Abs (ANC) 7.17 (H) 1.70 - [facility] 6.10 [facility] x10(3)/[facility] LABORATORY Lymphocytes % 12.2 % [facility] LABORATORY Lymphocytes Abs 1.2 0.9 - 3.2 [facility] x10(3)/[facility] LABORATORY Monocytes % 9.0 % [facility] LABORATORY Monocyte Abs 0.9 0.3 - 0.9 [facility] x10(3)/[facility] LABORATORY Eosinophils % 3.9 % [facility] LABORATORY Eosinophils Abs 0.4 0.0 - 0.4 [facility] x10(3)/[facility] LABORATORY Basophils % 0.6 % [facility] LABORATORY Basophils Abs 0.1 0.0 - 0.1 [facility] x10(3)/[facility] LABORATORY Immature Gran % 0.50 % [...] 0.05 (H) 0.00 - 0.04 x10(3)/[facility] LABORATORY Specimen Anatomical Collection Method Collection Time Receive d Time (Source) Location / / Volume Laterality Blood specimen 08/07/2017 7:30 AM 018 7:45 (specimen) EST AM EST Resulting Agency Comment Spec In Lab Yonathan Smith MD HEMATOLOGY ORDERABLES Performing Organization Address City/State/[place] [address] (ABNORMAL) Hemogram (08/07/2017 7:30 AM EST) Analysis Performed At Patho logist Time Signature WBC 9.7 (H) 4.0 - 9.5 [facility] x10(3)/[facility] LABORATORY RBC 3.54 (L) 4.58 - [facility] 5.54 [facility] x10(6)/[facility] LABORATORY Hemoglobin 9.9 (L) 13.7 - [facility] 16.5 gm/dL [facility] LABORATORY Hematocrit 32.3 (L) 40.5 - [facility] 48.5 % [facility] LABORATORY MCV 91.2 82.9 - [facility] 93.1 [facility] LABORATORY MCH 28.0 27.5 - [facility] 32.1 pg [facility] LABORATORY MCHC 30.7 (L) 32.0 - [facility] 35.7 gm/dL [facility] LABORATORY Platelets 312 145 - 357 [facility] x10(3)/[facility] LABORATORY RDWSD 53.2 (H) 36.0 - [facility] 45.0 [facility] LABORATORY RDWCV 16.0 (H) 11.4 - [facility] 13.8 % [facility] LABORATORY MPV 8.9 7.6 - 12.9 [facility] LABORATORY nRBC % Auto 0.0 % [facility] LABORATORY nRBC Abs Auto 0.000 0.000 - [facility] 0.000 [facility] x10(3)/[facility] LABORATORY Specimen Anatomical Collection Method Collection Time Receive d Time (Source) Location / / Volume Laterality Blood specimen 08/07/2017 7:30 AM 018 7:45 (specimen) EST AM EST Resulting Agency Comment Spec In Lab Yonathan Smith MD HEMATOLOGY ORDERABLES Performing Organization Address City/State/[place] [address] (ABNORMAL) Basic Metabolic Panel (non-fasting) (08/07/2017 7:30 AM EST) P athologist Signature Glucose Lvl 80 65 - 199 [facility] mg/dL [facility] [...] or in patients with acute kidney failure. [email or web address] Specimen Anatomical Collection Method Collection Time Receive d Time (Source) Location / / Volume Laterality Blood specimen 08/07/2017 7:30 AM 018 7:45 (specimen) EST AM EST Resulting Agency Comment Spec In Lab Yonathan Smith MD CHEMISTRY ORDERABLES Performing Organization Address City/[facility] Phon e Number [address] POCT Glucose (08/07/2017 7:27 AM EST) athologist Signature POC Glucose 81 65 - 199 [facility] mg/dL [facility] LABORATORY Comment: Supplemental ranges: <140 mg/dL before meals <180 mg/dL all other times of the day Specimen Anatomical Collection Method Collection Time Receive d Time (Source) Location / / Volume Laterality Blood specimen 08/07/2017 7:27 AM 018 7:27 (specimen) EST AM EST Yonathan Smith MD POINT OF CARE TEST ORDERABLE S Performing Organization Address [facility] Phon e Number [address] APTT (08/07/2017 7:04 AM [...] City/[facility]/[place] [address] (ABNORMAL) Prothrombin Time (08/07/2017 [...] Organization Address City/State/[place] [address] POCT Glucose (08/07/2017 4:03 AM EST) athologist Signature POC Glucose 93 65 - 199 [facility] mg/dL [facility] LABORATORY Comment: Supplemental ranges: <140 mg/dL before meals <180 mg/dL all other times of the day Specimen Anatomical Collection Method Collection Time Receive d Time (Source) Location / / Volume Laterality Blood specimen 08/07/2017 4:03 AM 018 4:03 (specimen) EST AM EST Yonathan Smith MD POINT OF CARE TEST ORDERABLE S Performing Organization Address City/State/[place] [address] POCT Glucose (08/07/2017 12:04 AM EST) athologist Signature POC Glucose 107 65 - 199 [facility] mg/dL [facility] LABORATORY Comment: Supplemental ranges: <140 mg/dL before meals <180 mg/dL all other times of the day Specimen Anatomical Collection Method Collection Time Receive d Time (Source) Location / / Volume Laterality Blood specimen 08/07/2017 12:04 8 (specimen) AM EST 12:04 AM EST Yonathan Smith MD POINT OF CARE TEST ORDERABLE S Performing Organization Address City/State/ZIP Code Phon e Number [address] POCT Glucose (08/06/2017 7:56 PM EST) P athologist Signature POC Glucose 178 65 - 199 [facility] mg/dL [facility] LABORATORY Comment: Supplemental ranges: <140 mg/dL before meals <180 mg/dL all other times of the day Specimen Anatomical Collection Method Collection Time Receive d Time (Source) Location / / Volume Laterality Blood specimen 08/06/2017 7:56 PM 018 7:56 (specimen) EST PM EST Yonathan Smith MD POINT OF CARE TEST ORDERABLE S Performing Organization Address City/State/ZIP Code Phon e Number [address] TcPO2 (08/06/2017 2:32 PM EST) Component Value Ref Test Analysis Performed At Patholo gist Range Method Time Signature VB Text Department: Vascular Surgery Lab VASCUBASE Report Patient: [id number] (GREGORY HOANG) CPT: [id number] ICD10: I99.8 Referring Physician: YONATHAN SMITH ?? [...] mg 0823 (G christinaen - Provider: Chiquis Mcgrtah RN) 0807 (Given - Provider: Chiquis Mcgrath [...] Chiquis Mcgrath, VAMSI)2022 (Hold - Provider: Mira rTuong, RN - Reason: See comment - Comment: [...] 0454 (Given - P rovider: Henrique Marks RN)0847 (Given - Provider: Chiquis Mcgrath RN)1135 (Given [...] documented in this encounter Care Teams Furnace Room Supervisor Relationship Specialty Start Date End Date Lovely Vicente MD PCP - General 04/16/[address] [place] [address] [address] [place] [address] documented as of this encounter
--- OUTSIDE RECORDS SUMMARY | 2022-05-22 08:19 | XMS_ITS | Encounter Summary ---
:1945 Author Organization [facility] [address] Care Team Providers Name Role Phone Lovely Vicente MD Primary Care Provider Reason for Visit Auth/Cert Specialty Diagnoses / Procedures Referred By Contact Refer red To Contact Diagnoses Critical lower limb ischemia CELLULITIS RT FOOT Procedures EMERGENCY Referral ID Status Reason Start Date Expiration Date Visits Requ ested Visits Authorized [id number] 1 1 Encounter Details Date Type Department Care Team Description 08/11/2017 Surgery Main Operating Room Yonathan Smith (M SURG) DRESSING CHANGE Barbara Ocampo MD (FOR OTHER THAN IVAN) [facility] UNDER ANES. 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 Patient [...] Dorsalis Pedis (Ankle) Artery ?132 ? 0.94 ??Hawkins-Biphasic ? Posterior Tibial (Ankle) Artery ??154 ? 1.10 ??Hawkins-Biphasic ? Fourth Toe ? 67 ?0.48 ?? [...] For any problems or questions please call [phone] ZELDA Smith, cloth shader Nurse Clinician For issues on weeknights after 5pm and weekends please call [phone] and ask for the Vascular Fellow credit relationship manager. General Instructions None Future Appointments and Orders Future Appointments Provider Department Dept Phone 08/26/2017 4:00 PM Aurelia Rivera PA [facility] [place] [phone] 09/07/2017 3:00 PM LAB, THREE L Lab 3L [facility] [phone] 09/07/2017 4:00 PM Luz Prescott MD Endocrinology [facility] [place] [phone] 09/09/2017 8:00 AM Barbra Soares APRN Pain Management [facility] [place] [phone] Please bring a list of your current [...] For any problems or questions please call [phone] ZELDA Smith, cloth shader Nurse Clinician For issues on weeknights after 5pm and weekends please call [phone] and ask for the Vascular Fellow credit relationship manager. documented in this encounter Medications at [...] Discharge Note Patient Destination: [facility] ([facility]) [address] [place] [id number] Transportation: with (at bedside) Time of Discharge: by 12 noon Level of Care: swing Patient Aware: yes Family Notified: yes Md to call report to: Yissel Quintero INDUSTRIAL LABORER already called RN to call report to: [phone] Shirin Wolf Office of Care Management Pager [phone] Shirin Wagner RN - 08/16/2017 10:50 AM EST [facility] has offered pt swing bed. Pt and accept bed. will transport via car. INDUSTRIAL LABORER Yissel Quintero aware; d/c paperwork will be completed by 12 noon. [facility] requests pt arrival by 1400 today; INDUSTRIAL LABORER, RN, and family aware. INDUSTRIAL LABORER called [facility] and was told that they prefer pt to arrive with wound vac dressing applied but clamped. INDUSTRIAL LABORER applied new wound vac dressing. RN has [facility] number to call report. PASSR completed; INDUSTRIAL LABORER paged to request provider signature in highlighted space. Indigo from [facility] notified via email that home wound vac now cancelled; [facility] has picked up from room and order cancelled. Packet started and provided to rn community health. Medicare important message explained to patient, patient signed. Copy provided to patient and signature page to OCM for inclusion in pt EMR. Radha Georges - 08/16/2017 10:34 AM EST Office of Care Management/Brake Engineer Patient Name: Gregory Hoang : 1945 Patient has been offered a swing bed at [facility]. The patient will be transported by private transportation. No MD to MD report necessary Please call Nursing Report to [phone], ask for or assistant. Info to accompany patient: Narcotic Prescriptions Copies of Medication Administration Records and IV sheets for past 10 days. Plan: Brake Engineer will be available to the patient and Division Plant Engineer-RN and/or Sponge Packer for further assistance. Patient will be discharged to: [facility] [address] [place] [id number] Radha Powers, Brake Engineer Mira Black, VAMSI - 08/15/2017 10:05 PM EST [address] Flores to ask if he wanted to hold metoprolol dose. BP 95/58. OK to hold this dose Courtney Brito - 08/15/2017 3:26 PM EST Office of Care Management(OCM)/Brake Engineer(RS)/ D/C Planning re : Patient is [...] status. 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 Vac in place. [...] referral to: [facility] PHONE: [phone] FAX: [phone] CM spoke with RS who said that [...] rehab. Await recommendations from PT. Covering pager #[phone]. 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 Aircraft Pneudraulic Systems Mechanic Kaitlin Saha, RN Pager #[phone] Payam Rosales - 08/13/2017 2:37 PM EST Ground Surveillance Systems Operator Encounter Note Patient Name: Gregory Hoang : [id number] MR#: [id number] Admit Date: 08/06/2017 1:41 PM Hospital Day 7 days Narrative: Visited to introduce and assess acceptance of Ground Surveillance Systems Operator services. Pt was awake, alert, oriented and in chair and family was there. Assessment:Patient coping positively with stresses of illness/hospitalization at this time. Pt says that he is hoping to get better and his family was there. Pt says that he has family care and supportand taking one day at time. Intervention and Outcome: Provided emotional support and encouraging presence. 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 A letter describing our affiliations was reviewed with them and theywere educated about their right to choose where referrals are placed. Patient requests referral to [facility] [employer]. PHONE: [phone] FAX: [phone]. And Home NPWT (Negative Pressure Wound Therapy) aka wound vac device made available to pt. Serial # confirmed. Reviewed [facility] Proof of Delivery/Assignment of Benefits Statement(POD/AOB) Form w patient or authorized agent signing on behalf of patient. Copy of POD/AOB provided to pt and other copy faxed to [employer] @ fax# [phone] Expected date of discharge: 08/12/2017. 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 Address: [address] [place] [address] [place] [address] (home) Mobile: Telephone Information: Referring Provider: No [...] SETUP performed by Manny Mcknight MD at [facility] MAIN OR ??? PRO CABG, ARTERIAL, SINGLE N/A 07/07/2017 @CABG, USING ARTERIAL GRAFT;SINGLE ARTERIAL GRAFT (WRVU 33.75) performed by Yuan Retana MD at [facility] MAIN OR ??? PRO CABG, ARTERY-VEIN, TWO N/A 07/07/2017 @CABG, TWO VENOUS GRAFTS & ARTERIAL GRAFT (WRVU 7.93) performed by Yuan Retana MD at [facility] MAIN OR ??? PRO COLONOSCOPY, REMV LESN, SNARE 01/16/2014 COLONOSCOPY, POLYPECTOMY, REMOVAL LESION BY SNARE performed by Nohemi Jaimes MD at [facility] ENDOSCOPY ??? PRO ENDOSCOPY W/VIDEO-ASST VEIN HARVEST, CABG Right 07/07/2017 ENDOSCOPIC HARVEST VEIN(S) FOR CABG (WRVU 0.31) performed by Yuan Retana MD at [facility] MAIN OR ??? 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 Heparin gtt continues to run. [...] of : 1945 AGE 72 y.o. Address: [address] [place] [address] [place] [address] (home) Mobile: Telephone Information: Referring Provider: No [...] SETUP performed by Manny Mcknight MD at [facility] MAIN OR ??? PRO CABG, ARTERIAL, SINGLE N/A 07/07/2017 @CABG, USING ARTERIAL GRAFT;SINGLE ARTERIAL GRAFT (WRVU 33.75) performed by Yuan Retana MD at [facility] MAIN OR ??? PRO CABG, ARTERY-VEIN, TWO N/A 07/07/2017 @CABG, TWO VENOUS GRAFTS & ARTERIAL GRAFT (WRVU 7.93) performed by Yuan Retana MD at [facility] OR ??? PRO COLONOSCOPY, REMV LESN, SNARE 01/16/2014 COLONOSCOPY, POLYPECTOMY, REMOVAL LESION BY SNARE performed by Nohemi Jaimes MD at [facility] ENDOSCOPY ??? PRO ENDOSCOPY W/VIDEO-ASST VEIN HARVEST, CABG Right 07/07/2017 ENDOSCOPIC HARVEST VEIN(S) FOR CABG (WRVU 0.31) performed by Yuan Retana MD at [facility] MAIN OR ??? PRO THYROIDECTOMY 03/28/2013 THYROIDECTOMY, TOTAL OR COMPLETE performed by Manny Mcknight MD at [facility] MAIN [...] blue toe syndrome (possibly from a right RN CARDIOVASCULAR ICU PSA which has since thrombosed), now admitted [...] draw at 0045. Unsuccessful draw attempt, another cage/vault supervisor will come [facility] to [...] blue toe syndrome (possibly from a right RN CARDIOVASCULAR ICU PSA which has since thrombosed), now admitted [...] lab, pt blood glucose 229. Vascular resident credit relationship manager and will forward result to the team prior to rounds. 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 Patient [...] SETUP performed by Manny Mcknight MD at [facility] MAIN OR ??? PRO CABG, ARTERIAL, SINGLE N/A 07/07/2017 @CABG, USING ARTERIAL GRAFT;SINGLE ARTERIAL GRAFT (WRVU 33.75) performed by Yuan Retana MD at [facility] MAIN OR ??? PRO CABG, ARTERY-VEIN, TWO N/A 07/07/2017 @CABG, TWO VENOUS GRAFTS & ARTERIAL GRAFT (WRVU 7.93) performed by Yuan Retana MD at [facility] MAIN OR ??? PRO COLONOSCOPY, REMV LESN, SNARE 01/16/2014 COLONOSCOPY, POLYPECTOMY, REMOVAL LESION BY SNARE performed by Nohemi Jaimes MD at [facility] ENDOSCOPY ??? PRO ENDOSCOPY W/VIDEO-ASST VEIN HARVEST, CABG Right 07/07/2017 ENDOSCOPIC HARVEST VEIN(S) FOR CABG (WRVU 0.31) performed by Yuan Retana MD at [facility] MAIN OR ??? PRO THYROIDECTOMY 03/28/2013 THYROIDECTOMY, TOTAL OR COMPLETE performed by Manny Mcknight MD at [facility] MAIN [...] left blue toes with CTA showing R RN CARDIOVASCULAR ICU pseudoaneurysm (now thrombosed) and occluded ATs bilaterally. [...] 2.5x80 5. Completion RLE angiogram 6. L RN CARDIOVASCULAR ICU angiogram 7. Mynx closure Surgeons: Hank Washington Anesthesia: Conscious sedation, local 8 cc 1% lidocaine Medications: Fentanyl: 200 mcg Versed: 4 mg Heparin: 9000 units Antibiotics: Scheduled ceftriaxone Protamine: 40 mg Fluoro Time: 33.3 min Contrast: 80 cc EBL: 10cc Indications for the Procedure: 72 y.o. 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 - L RN CARDIOVASCULAR ICU angriogram demonstrated: High femoral bifurcation over the proximal half of the femoral head. L RN CARDIOVASCULAR ICU access in the distal L RN CARDIOVASCULAR ICU. - Closure device: Mynx Technical Procedure: The [...] for a 45cm 5F Destination. V18 and Rogers and QuickCross catheters were used to select [...] 5F. A stationed picture of the L RN CARDIOVASCULAR ICU was performed as the patient was noted to have a very high bifurcation. Access appeared in the distal R RN CARDIOVASCULAR ICU. Closure and sheath removal was performed with [...] PM EST 1440 report called to 5 [place] nurse Tessa AGUSTIN documented in this encounter Miscellaneous Notes Plan of Care - Dory Truong RN - 08/16/2017 10:51 AM EST Problem: Patient Care Overview Goal: Plan of Care Review Outcome: Outcome (s) achieved Date Met: 08/16/17 08/14/17 1939 08/16/17 7051 Coping/Psychosocial Plan Of Care Reviewed With -- [...] sit/sit to supine -- Bed Mobility Goal, Whitman Level independent -- Bed Mobility Goal, Date [...] days -- Transfer Training Goal, Activity Type aof-jz-bmivx/khdih-qi-ure -- Transfer Train Goal, Whitman Level conditional independence -- Transfer Train Goal, [...] call cabello within reach, Hourly rounding by RN/ECOMMERCE MARKETING SPECIALIST. Bed alarm / Chair alarm. Patient-specific [...] Smith MD - 08/15/2017 6:28 PM EST [facility] Operative Note Patient Name: Gregory Hoang : [id number] MR#: [id number] Case Date: 08/09/2017 Surgeon: Surgeon(s) and Role: [...] 2.5x80 5. Completion RLE angiogram 6. L RN CARDIOVASCULAR ICU angiogram 7. Mynx closure Precautions/Restrictions: fall, sternal [...] other (see comments) (or swing bed) Pager: [phone] BASSAM ELIAS, PT 08/14/2017 Inpatient Physical Therapy [...] to Achieve by discharge Gait Training Goal, Whitman Level conditional independence;set up required Gait Training [...] CENTER. CM spoke with [facility] KANWAL Sandhu RN who said that they do not anticipate any beds over the weekend. Reviewed with patient/ that they need to be aware that patient will need to take the first bed offered at the facilities that they make referrals to. Their choices are: 1- [facility] PHONE: [phone] FAX: [phone] 2- [facility] ([facility]) [address] [place] [address] 3- [facility]) [address] [place] [address] I have discussed Medicare/Private Insurance [...] RS/CM on Wednesday to follow-up. Covering pager #[phone] for today. Plan of Care - Henrique [...] with additional findings of pseudoaneurysm on R RN CARDIOVASCULAR ICU and bilateral anterior tibial artery occlusions. Was [...] an outpatient once discharged. Have patient call [phone] to set up an appointment. Follow-up: Dermatology will sign-off for now. Please do not hesitate to contact us if you have any questions orconcerns. Impression and Recommendations discussed with primary team on 08/13/2017. Karo Henderson MD Resident in Dermatology Section of Dermatology, Department of Surgery [facility] Pager [phone] Patient seen and evaluated with staff Assistant Education Director: Halima Cordero MD Section of Dermatology [place] [...] 2.5x80 5. Completion RLE angiogram 6. L RN CARDIOVASCULAR ICU angiogram 7. Mynx closure Active Non-Hospital Problems [...] home with home health ([facility] PT[facility]OT) Pager: [phone] YASIR TELLO OT 08/12/2017 Occupational Therapy Rehabilitation [...] 2.5x80 5. Completion RLE angiogram 6. L RN CARDIOVASCULAR ICU angiogram 7. Mynx closure Past Medical History: [...] with 24/7 assistance and maximal services) Pager: [phone] NICHOLAS MORA, JESSIE 08/12/2017 Physical Therapy Rehabilitation [...] sit/sit to supine -- Bed Mobility Goal, Whitman Level independent -- Bed Mobility Goal, Outcome Achieved -- goal ongoing Goal: Gait Training Goal Stand Alone Therapy Goal Outcome: Ongoing (Interventions Implemented as Appropriate) 08/11/17 1310 08/12/17 1510 Gait Training Goal Gait Training Goal, Date Established 08/11/17 -- Gait Training Goal, Time to Achieve 5 - 7 days -- Gait Training Goal, Whitman Level conditional independence -- Gait Training Goal, [...] days -- Transfer Training Goal, Activity Type hgm-nt-wgtzj/evnlo-de-dad -- Transfer Train Goal, Whitman Level conditional independence -- Transfer Training Goal, [...] -- 0 Score -- -- 95 OTHER Amrk Fall Risk -- -- High 08/11/17 1300 [...] Smith MD - 08/11/2017 2:52 PM EST [facility] Operative Note Patient Name: Gregory Hoang : [id number] MR#: [id number] Case Date: 08/11/2017 Surgeon: Surgeon(s) and Role: [...] blue toe syndrome (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 male [...] 2.5x80 5. Completion RLE angiogram 6. L RN CARDIOVASCULAR ICU angiogram 7. Mynx closure He is very [...] Anticipated Discharge Disposition: inpatient rehabilitation facility Pager: [phone] LAWRENCE GONZALEZ, PT 08/11/2017 Physical Therapy Rehabilitation [...] to sit/sit to supine Bed Mobility Goal, Whitman Level independent Goal: Gait Training Goal Stand Alone Therapy Goal Outcome: Ongoing (Interventions Implemented as Appropriate) 08/11/17 1310 Gait Training Goal Gait Training Goal, Date Established 08/11/17 Gait Training Goal, Time to Achieve 5 - 7 days Gait Training Goal, Whitman Level conditional independence Gait Training Goal, Assist [...] 7 days Transfer Training Goal, Activity Type lzl-za-kjqfa/rgpib-wr-gxb Transfer Train Goal, Whitman Level conditional independence Plan of Care - [...] call cabello within reach, Hourly rounding by RN/ECOMMERCE MARKETING SPECIALIST. Bed alarm / Chair alarm. ? [...] 04/05/2013 Hospitalizations Within the Past 30 Days: [facility] 07/20/2017 Anticipated Length Of Stay (If known): Expected Length of Hospitalization: 5-7 days2-3 days Current Decision-Making Capacity: Alert and oriented x 4 Advance Care Planning: on file Kisha Hoang [facility] [phone] Current Coping/Education/Information Needs: pt and spouse state [...] Health/Prescription Coverage: Primary Insurance: MEDICARE Secondary Insurance: [place] Prescription Coverage: See above Preferred Pharmacy: [facility] Other: N/A Primary Care Provider: Lovely Vicente MD [phone] Patient/Caregiver Goals of Treatment: Patient plans to return home when medically ready Potential Needs for Transition of Care: Rehab/SNF: N/A Home Health: [facility]. DME: pt has a cane and walker [...] of care planning. Kaitlin Saha RN Pager: [phone] Plan of Care - Melba Jaramillo RN [...] Overview Goal: Plan of Care Review 08/08/17 1904 Coping/Psychosocial Plan Of Care Reviewed With patient [...] call cabello within reach, Hourly rounding by RN/ECOMMERCE MARKETING SPECIALIST. Bed alarm / Chair alarm. Patient-specific [...] at bedside and MD TEAM Carrying pager [phone] contacted (via Radio page) and notified of [...] Zulma Dolan MD [facility] [place], [place] [address] (Wo rk) 05/28/2022 Laboratory Appointment Lab 05/28/2022 Office Visit Cardiology Zulma Dolan MD [facility] [place] [address] Liz Poole PA [facility] [place] [address] 06/10/2022 Office Visit Dermatology Laura Scherer MD [facility] DR TEJA [facility]DERMAT OLOGY [place], [place] [address] (Wo rk) documented as [...] 160 65 - 199 [place] mg/dL [facility] Comment: Supplemental [...] City/State/[place] [address] (ABNORMAL) Differential, Automated (08/16/2017 5:08 AM EST) [facility] Method Time Signature Neutrophils % 73.9 % [facility] Neutr Abs (ANC) 5.37 1.70 - [facility] 6.10 [facility] x10(3)/[facility] LABORATORY Lymphocytes % 10.1 % [facility] Lymphocytes Abs 0.7 (L) 0.9 - 3.2 [facility] x10(3)/[facility] LABORATORY Monocytes % 10.1 % [facility] Monocyte Abs 0.7 0.3 - 0.9 [facility] x10(3)/[facility] LABORATORY Eosinophils % 5.1 % [facility] Eosinophils Abs 0.4 0.0 - 0.4 [facility] x10(3)/[facility] LABORATORY Basophils % 0.4 % [facility] Basophils Abs 0.0 0.0 - 0.1 [facility] x10(3)/[facility] LABORATORY Immature Gran % [...] Abs 0.03 0.00 - 0.04 x10(3)/[facility] Y [facility] Specimen Anatomical Collection Method Collection Time Receive d Time (Source) Location / / Volume Laterality Blood specimen 08/16/2017 5:08 AM 018 5:20 (specimen) EST AM EST Resulting Agency Comment Spec In Lab Yonathan Smith MD HEMATOLOGY ORDERABLES Performing Organization Address City/State/[place] [address] (ABNORMAL) Hemogram (08/16/2017 5:08 AM EST) Analysis Performed At Patho logist Time Signature WBC 7.3 4.0 - 9.5 [place] x10(3)/[facility] LABORATORY RBC 3.36 (L) 4.58 - [place] 5.54 [facility] x10(6)/[facility] LABORATORY Hemoglobin 9.7 (L) 13.7 - [facility] 16.5 gm/dL [facility] Hematocrit 30.3 (L) 40.5 - [place] 48.5 % [facility] MCV 90.2 82.9 - [facility] 93.1 [facility] LABORATORY MCH 28.9 27.5 - [place] 32.1 pg [facility] MCHC 32.0 32.0 - [place] 35.7 gm/dL [facility] Platelets 282 145 - 357 [facility] LAB[facility] RDWSD 53.9 (H) 36.0 - [place] 45.0 [facility] LABORATORY RDWCV 16.5 (H) 11.4 - [place] 13.8 % [facility] MPV 9.0 7.6 - 12.9 [place] [facility] LAB[facility]ATORY nRBC % Auto 0.0 % [facility] nRBC Abs Auto 0.000 0.000 - [place] 0.000 [facility] x10(3)/[facility] LABORATORY Specimen Anatomical Collection Method Collection Time Receive d Time (Source) Location / / Volume Laterality Blood specimen 08/16/2017 5:08 AM 018 5:20 (specimen) EST AM EST Resulting Agency Comment Spec In Lab Yonathan Smith MD HEMATOLOGY ORDERABLES Performing Organization Address City/State/ZIP Code Phon e Number [place] [id number] (ABNORMAL) Basic Metabolic Panel (non-fasting) (08/16/2017 5:08 AM EST) P athologist Signature Glucose Lvl 141 65 - 199 [facility] mg/dL [facility] [...] or in patients with acute kidney failure. [email or web address] [email or web address] Specimen Anatomical Collection Method Collection Time Receive d Time (Source) Location / / Volume Laterality Blood specimen 08/16/2017 5:08 AM 018 5:20 (specimen) EST AM EST Resulting Agency Comment Spec In Lab Yonathan Smith MD CHEMISTRY ORDERABLES Performing Organization Address City/State/[place] [address] (ABNORMAL) Prothrombin Time (08/16/2017 [...] Performing Organization Address City/[facility]/ZIP Code Phon e Number [address] POCT Glucose (08/16/2017 4:09 AM EST) athologist Signature POC Glucose 147 65 - 199 [facility] LABOR[facility]ORY Comment: Supplemental ranges: <140 mg/dL before meals <180 mg/dL all other times of the day Specimen Anatomical Collection Method Collection Time Receive d Time (Source) Location / / Volume Laterality Blood specimen 08/16/2017 4:09 AM 018 4:09 (specimen) EST AM EST Yonathan Smith MD POINT OF CARE TEST ORDERABLE S Performing Organization Address City/[facility]/ZIP Code Phon e Number [address] POCT Glucose (08/15/2017 11:56 PM EST) athologist Signature POC Glucose 176 65 - 199 [facility]dL [facility] LABORATORY Comment: Supplemental ranges: <140 mg/dL before meals <180 mg/dL all other times of the day Specimen Anatomical Collection Method Collection Time Receive d Time (Source) Location / / Volume Laterality Blood specimen 08/15/2017 11:56 8 (specimen) PM EST 11:56 PM EST Yonathan Smith MD POINT OF CARE TEST ORDERABLE S Performing Organization Address City/[facility]/ZIP Code Phon e Number [address] POCT Glucose (08/15/2017 8:05 PM EST) athologist Signature POC Glucose 136 65 - 199 [place] mg/dL [facility] LABORATORY Comment: Supplemental ranges: <140 mg/dL before meals <180 mg/dL all other times of the day Specimen Anatomical Collection Method Collection Time Receive d Time (Source) Location / / Volume Laterality Blood specimen 08/15/2017 8:05 PM 018 8:05 (specimen) EST PM EST Yonathan Smith MD POINT OF CARE TEST ORDERABLE S Performing Organization Address City/State/[place] [address] (ABNORMAL) POCT Glucose (08/15/2017 4:50 PM EST) athologist Signature POC Glucose 232 (H) 65 - 199 [facility] mg/dL [facility] LABORATORY Comment: Supplemental ranges: <140 mg/dL before meals <180 mg/dL all other times of the day Specimen Anatomical Collection Method Collection Time Receive d Time (Source) Location / / Volume Laterality Blood specimen 08/15/2017 4:50 PM 018 4:50 (specimen) EST PM EST Yonathan Smith MD POINT OF CARE TEST ORDERABLE S Performing Organization Address City/State/[place] [address] POCT Glucose (08/15/2017 12:04 PM EST) athologist Signature POC Glucose 135 65 - 199 [place] mg/dL [facility] LABORATORY Comment: Supplemental ranges: <140 mg/dL before meals <180 mg/dL all other times of the day Specimen Anatomical Collection Method Collection Time Receive d Time (Source) Location / / Volume Laterality Blood specimen 08/15/2017 12:04 8 (specimen) PM EST 12:04 PM EST Yonathan Smith MD POINT OF CARE TEST ORDERABLE S Performing Organization Address City/State/[place] [address] POCT Glucose (08/15/2017 7:36 AM EST) P athologist Signature POC Glucose 124 65 - 199 [facility] mg/dL [facility] LABORATORY Comment: Supplemental [...] City/State/[place] [address] (ABNORMAL) Differential, Automated (08/15/2017 6:22 AM EST) Patholo gist Method Time Signature Neutrophils % 76.1 % [facility] LABORATORY Neutr Abs (ANC) 6.62 (H) 1.70 - [facility] 6.10 [facility] x10(3)/[facility] L LABORATORY Lymphocytes % 9.3 % [facility] LABORATORY Lymphocytes Abs 0.8 (L) 0.9 - 3.2 [facility] x10(3)/[facility] LABORATORY Monocytes % 9.4 % [facility] LABORATORY Monocyte Abs 0.8 0.3 - 0.9 [facility] x10(3)/[facility] LABORATORY Eosinophils % 4.0 % [facility] LABORATORY Eosinophils Abs 0.4 0.0 - 0.4 [facility] x10(3)/[facility] LABORATORY Basophils % 0.6 % [facility] LABORATORY Basophils Abs 0.0 0.0 - 0.1 [facility] x10(3)/[facility] LABORATORY [...] City/State/[place] [address] (ABNORMAL) Hemogram (08/15/2017 6:22 AM EST) Analysis Performed At Patho logist Time Signature WBC 8.7 4.0 - 9.5 [facility] x10(3)/[facility] LABORATORY RBC 3.21 (L) 4.58 - [facility] 5.54 [facility] x10(6)/[facility] LABORATORY Hemoglobin 9.1 (L) 13.7 - [facility] 16.5 gm/dL [facility] LABORATORY Hematocrit 29.0 (L) 40.5 - [facility] 48.5 % [facility] LABORATORY MCV 90.3 82.9 - [facility] 93.1 [facility] LABORATORY MCH 28.3 27.5 - [facility] RYAN 32.1 pg [facility] LABORATORY MCHC 31.4 (L) 32.0 - [facility] 35.7 gm/dL [facility] LABORATORY Platelets 254 145 - 357 [facility] x10(3)/[facility] LABORATORY RDWSD 53.9 (H) 36.0 - [facility] RYAN 45.0 [facility] LABORATORY RDWCV 16.3 (H) 11.4 - [facility] RYAN 13.8 % [facility] LABORATORY MPV 8.8 7.6 - 12.9 [facility] LABORATORY nRBC % Auto 0.0 % [facility] LABORATORY nRBC Abs Auto 0.000 0.000 - [place] 0.000 [facility] x10(3)/[facility] LABORATORY Specimen Anatomical Collection Method Collection Time Receive d Time (Source) Location / / Volume Laterality Blood specimen 08/15/2017 6:22 AM 018 6:33 (specimen) EST AM EST Resulting Agency Comment Spec In Lab Yonathan Smith MD HEMATOLOGY ORDERABLES Performing Organization Address City/State/[place] [address] (ABNORMAL) Basic Metabolic Panel (non-fasting) (08/15/2017 6:22 AM EST) P athologist Signature Glucose Lvl 118 65 - 199 [facility] mg/dL [facility] LABORATORY [...] [facility] LABORATORY Estimated GFR >60 >=60 [facility] LABORATORY Comment: The reported eGFR should be multiplied b y 1.2 for patients. The MDRD is not an appropriate measure o f renal function for patients with body mass extremes or in patients with acute kidney failure. http://[employer].Swiftpage/DHnkdep http://[employer]/DHMCnkf Specimen Anatomical Collection Method Collection Time Receive d Time (Source) Location / / Volume Laterality Blood specimen 08/15/2017 6:22 AM 018 6:33 (specimen) EST AM EST Resulting Agency Comment Spec In Lab Yonathna Smith MD CHEMISTRY ORDERABLES Performing Organization Address City/State/[place] [address] (ABNORMAL) Prothrombin Time (08/15/2017 [...] Performing Organization Address City/[facility]/[place]IP [place] [address] POCT Glucose (08/15/2017 4:33 AM EST) athologist Signature POC Glucose 164 65 - 199 [facility]dL [facility] LABOR[facility]ORY Comment: Supplemental ranges: <140 mg/dL before meals <180 mg/dL all other times of the day Specimen Anatomical Collection Method Collection Time Receive d Time (Source) Location / / Volume Laterality Blood specimen 08/15/2017 4:33 AM 018 4:33 (specimen) EST AM EST Yonathan Smith MD POINT OF CARE TEST ORDERABLE S Performing Organization Address City/State/[place] [address] POCT Glucose (08/15/2017 12:12 AM EST) athologist Signature POC Glucose 89 65 - 199 [facility] mg/dL [facility] LABORATORY Comment: Supplemental ranges: <140 mg/dL before meals <180 mg/dL all other times of the day Specimen Anatomical Collection Method Collection Time Receive d Time (Source) Location / / Volume Laterality Blood specimen 08/15/2017 12:12 8 (specimen) AM EST 12:12 AM EST Yonathan Smith MD POINT OF CARE TEST ORDERABLE S Performing Organization Address City/State/[place] [address] (ABNORMAL) POCT Glucose (08/14/2017 8:07 PM EST) athologist Signature POC Glucose 204 (H) 65 - 199 [facility] mg/dL [facility] LABORATORY Comment: Supplemental ranges: <140 mg/dL before meals <180 mg/dL all other times of the day Specimen Anatomical Collection Method Collection Time Receive d Time (Source) Location / / Volume Laterality Blood specimen 08/14/2017 8:07 PM 018 8:07 (specimen) EST PM EST Yonathan Smith MD POINT OF CARE TEST ORDERABLE S Performing Organization Address City/State/[place] [address] POCT Glucose (08/14/2017 5:11 PM EST) athologist Signature POC Glucose 174 65 - 199 [place] mg/dL [facility] LABORATORY Comment: Supplemental ranges: <140 mg/dL before meals <180 mg/dL all other times of the day Specimen Anatomical Collection Method Collection Time Receive d Time (Source) Location / / Volume Laterality Blood specimen 08/14/2017 5:11 PM 018 5:11 (specimen) EST PM EST Yonathan Smith MD POINT OF CARE TEST ORDERABLE S Performing Organization Address City/State/[place] [address] POCT Glucose (08/14/2017 12:10 PM EST) athologist Signature POC Glucose 141 65 - 199 [facility] mg/dL [facility] LABORATORY Comment: Supplemental ranges: <140 mg/dL before meals <180 mg/dL all other times of the day Specimen Anatomical Collection Method Collection Time Receive d Time (Source) Location / / Volume Laterality Blood specimen 08/14/2017 12:10 8 (specimen) PM EST 12:10 PM EST Yonathan Smith MD POINT OF CARE TEST ORDERABLE S Performing Organization Address City/State/Z[place] [address] POCT Glucose (08/14/2017 8:07 AM EST) P athologist Signature POC Glucose 158 65 - 199 [facility]/dL [facility] LABOR[facility] Comment: Supplemental ranges: <140 mg/dL before meals <180 mg/dL all other times of the day Specimen Anatomical Collection Method Collection Time Receive d Time (Source) Location / / Volume Laterality Blood specimen 08/14/2017 8:07 AM 018 8:07 (specimen) EST AM EST Yonathan Smith MD POINT OF CARE TEST ORDERABLE S Performing Organization Address City/State/[place] [address] (ABNORMAL) Differential, Automated (08/14/2017 4:52 AM EST) Patholo gist Method Time Signature Neutrophils % 78.6 % [facility] LABORATORY Neutr Abs (ANC) 7.70 (H) 1.70 - [facility] 6.10 [facility] x10(3)/[facility] L LABORATORY Lymphocytes % 7.8 % [facility] LABORATORY Lymphocytes Abs 0.8 (L) 0.9 - 3.2 [facility] x10(3)/[facility] LABORATORY Monocytes % 8.8 % [facility] LABORATORY Monocyte Abs 0.9 0.3 - 0.9 [facility] x10(3)/[facility] LABORATORY Eosinophils % 4.0 % [facility] LABORATORY Eosinophils Abs 0.4 0.0 - 0.4 [facility] x10(3)/[facility] LABORATORY Basophils % 0.5 % [facility] LABORATORY Basophils Abs 0.0 0.0 - 0.1 [facility] x10(3)/[facility] LABORATORY Immature Gran % 0.30 [...] Gran Abs 0.03 0.00 - 0.04 x10(3)/[facility] MAR [facility] LABOR[facility] Specimen Anatomical Collection Method Collection Time Receive d Time (Source) Location / / Volume Laterality Blood specimen 08/14/2017 4:52 AM 018 5:08 (specimen) EST AM EST Resulting Agency Comment Spec In Lab Yonathan Smith MD HEMATOLOGY ORDERABLES Performing Organization Address City/State/[place] [address] (ABNORMAL) Hemogram (08/14/2017 4:52 AM EST) Analysis Performed At Patho logist Time Signature WBC 9.8 (H) 4.0 - 9.5 [facility] x10(3)/[facility] LABORATORY RBC 3.32 (L) 4.58 - [facility] 5.54 [facility] x10(6)/[facility] LABORATORY Hemoglobin 9.5 (L) 13.7 - [facility] 16.5 gm/dL [facility] LABORATORY Hematocrit 30.3 (L) 40.5 - [facility] 48.5 % [facility] LABORATORY MCV 91.3 82.9 - [facility] 93.1 [facility] LABORATORY MCH 28.6 27.5 - [facility] RYAN 32.1 pg [facility] LABORATORY MCHC 31.4 (L) 32.0 - [facility] 35.7 gm/dL [facility] LABORATORY Platelets 263 145 - 357 [facility] x10(3)/[facility] LABORATORY RDWSD 54.8 (H) 36.0 - [place] 45.0 [facility] LABORATORY RDWCV 16.5 (H) 11.4 - [facility] 13.8 % [facility] LABORATORY MPV 9.1 7.6 - 12.9 [facility] LABORATORY nRBC % Auto 0.0 % [facility] LABORATORY nRBC Abs Auto 0.000 0.000 - [facility] 0.000 [facility] x10(3)/[facility] LABORATORY Specimen Anatomical Collection Method Collection Time Receive d Time (Source) Location / / Volume Laterality Blood specimen 08/14/2017 4:52 AM 018 5:08 (specimen) EST AM EST Resulting Agency Comment Spec In Lab Yonathan Smith MD HEMATOLOGY ORDERABLES Performing Organization Address City/State/[place] [address] (ABNORMAL) Prothrombin Time (08/14/2017 [...] City/State/[place] [address] (ABNORMAL) Basic Metabolic Panel (non-fasting) (08/14/2017 4:52 AM EST) P athologist Signature Glucose Lvl 135 65 - 199 [facility] mg/dL [facility] LABORATORY [...] or in patients with acute kidney failure. http://[employer]/DHnkdep http://[employer]/DHnkf Specimen Anatomical Collection Method Collection Time Receive d Time (Source) Location / / Volume Laterality Blood specimen 08/14/2017 4:52 AM 018 5:08 (specimen) EST AM EST Resulting Agency Comment Spec In Lab Yonathan Smith MD CHEMISTRY ORDERABLES Performing Organization Address City/State/[place] [address] POCT Glucose (08/14/2017 3:56 AM EST) P athologist Signature POC Glucose 135 65 - 199 [facility] mg/dL [facility] LABORATORY Comment: Supplemental [...] Address City/State/ZIP Code Phon e Number [address] POCT Glucose (08/13/2017 11:13 PM EST) athologist Signature POC Glucose 118 65 - 199 [place] mg/dL [facility] LABORATORY Comment: Supplemental ranges: <140 mg/dL before meals <180 mg/dL all other times of the day Specimen Anatomical Collection Method Collection Time Receive d Time (Source) Location / / Volume Laterality Blood specimen 08/13/2017 11:13 8 (specimen) PM EST 11:13 PM EST Yonathan Smith MD POINT OF CARE TEST ORDERABLE S Performing Organization Address City/[facility]/[place]IP [place] [address] (ABNORMAL) POCT Glucose (08/13/2017 8:08 PM EST) athologist Signature POC Glucose 204 (H) 65 - 199 [place] [place] mg/dL [facility] LABORATORY Comment: Supplemental ranges: <140 mg/dL before meals <180 mg/dL all other times of the day Specimen Anatomical Collection Method Collection Time Receive d Time (Source) Location / / Volume Laterality Blood specimen 08/13/2017 8:08 PM 018 8:08 (specimen) EST PM EST Yonathan Smith MD POINT OF CARE TEST ORDERABLE S Performing Organization Address City/State/Z[place] [address] POCT Glucose (08/13/2017 4:02 PM EST) athologist Signature POC Glucose 145 65 - 199 [place] mg/dL [facility] LABORATORY Comment: Supplemental ranges: <140 mg/dL before meals <180 mg/dL all other times of the day Specimen Anatomical Collection Method Collection Time Receive d Time (Source) Location / / Volume Laterality Blood specimen 08/13/2017 4:02 PM 018 4:02 (specimen) EST PM EST Yonathan Smith MD POINT OF CARE TEST ORDERABLE S Performing Organization Address City/State/Z[place] [address] POCT Glucose (08/13/2017 11:31 AM EST) athologist Signature POC Glucose 179 65 - 199 [facility] mg/dL [facility] LABORATORY Comment: Supplemental ranges: <140 mg/dL before meals <180 mg/dL all other times of the day Specimen Anatomical Collection Method Collection Time Receive d Time (Source) Location / / Volume Laterality Blood specimen 08/13/2017 11:31 8 (specimen) AM EST 11:31 AM EST Yonathan Smith MD POINT OF CARE TEST ORDERABLE S Performing Organization Address City/[facility]/ZIP [place] [address] (ABNORMAL) POCT Glucose (08/13/2017 10:16 AM EST) athologist Signature POC Glucose 211 (H) 65 - 199 [facility] mg/dL [facility] LABORATORY Comment: Supplemental ranges: <140 mg/dL before meals <180 mg/dL all other times of the day Specimen Anatomical Collection Method Collection Time Receive d Time (Source) Location / / Volume Laterality Blood specimen 08/13/2017 10:16 8 (specimen) AM EST 10:16 AM EST Yonathan Smith MD POINT OF CARE TEST ORDERABLE S Performing Organization Address City/[facility]/[place]IP [place] [address] JULIAN, legs, multiple levels (08/13/2017 7:42 AM EST) Component Value Ref Test Analysis Performed At Patholo gist Range Method Time Signature VB Text Department: Vascular Surgery Lab VASCUBASE Report Patient: [id number] (GREGORY HOANG) CPT: 12317 ICD10: I99.8 Referring Physician: YONATHAN SMITH ?? Indications: s/p R 1,2,3 toe amps with red left foot, need n ew baseline Diabetes mellitus: yes ICD10 Diagnosis Code: I99.8 Findings: Right ?Pressure (mm Hg) ?? JULIAN ??Waveform ?TBI ?? Brachial Artery ?138 ? Dorsalis Pedis (Ankle) Arter y ?132 ? 0.94 ??Hawkins- Biphasic ? Posterior Tibial (Ankle) Art anila ??154 ? 1.10 ??Hawkins-Biphasic ? Fourth Toe ? 67 ? 0.48 [...] POC Glucose 156 65 - 199 [facility] mg/dL [facility] LABORATORY Comment: Supplemental [...] City/State/ZIP Code Phon e Number [place] [id number] Drive (ABNORMAL) Differential, Automated (08/13/2017 5:33 AM EST) [facility] Method Time Signature Neutrophils % 77.8 % [facility] LABORATORY Neutr Abs (ANC) 7.83 (H) 1.70 - [facility] 6.10 [facility] x10(3)/[facility] L LABORATORY Lymphocytes % 8.4 % [facility] LABORATORY Lymphocytes Abs 0.8 (L) 0.9 - 3.2 [facility] x10(3)/[facility] LABORATORY Monocytes % 8.3 % [facility] LABORATORY Monocyte Abs 0.8 0.3 - 0.9 [facility] x10(3)/[facility] LABORATORY Eosinophils % 4.6 % [facility] LABORATORY Eosinophils Abs 0.5 (H) 0.0 - 0.4 [facility] x10(3)/[facility] LABORATORY Basophils % 0.5 % [facility] LABORATORY Basophils Abs 0.0 0.0 - 0.1 [facility] x10(3)/[facility] LABORATORY [...] 0.04 0.00 - 0.04 x10(3)/[facility] LABORATORY Specimen Anatomical Collection Method Collection Time Receive d Time (Source) Location / / Volume Laterality Blood specimen 08/13/2017 5:33 AM 018 6:04 (specimen) EST AM EST Resulting Agency Comment Spec In Lab Yonathan Smith MD HEMATOLOGY ORDERABLES Performing Organization Address City/State/[place] [address] (ABNORMAL) Hemogram (08/13/2017 5:33 AM EST) Analysis Performed At Patho logist Time Signature WBC 10.1 (H) 4.0 - 9.5 [facility] x10(3)/[facility] LABORATORY RBC 3.21 (L) 4.58 - [facility] 5.54 [facility] x10(6)/[facility] LABORATORY Hemoglobin 9.2 (L) 13.7 - [facility] 16.[facility] gm/dL [facility] LABORATORY Hematocrit 29.6 (L) 40.5 - [facility] 48.5 % [facility] LABORATORY MCV 92.2 82.9 - [facility] 93.1 [facility] LABORATORY MCH 28.7 27.5 - [facility] 32.1 pg [facility] LABORATORY MCHC 31.1 (L) 32.0 - [facility] 35.7 gm/dL [facility] LABORATORY Platelets 263 145 - 357 [facility] x10(3)/[facility] LABORATORY RDWSD 54.8 (H) 36.0 - [facility] 45.0 [facility] LABORATORY RDWCV 16.4 (H) 11.4 - [facility] 13.8 % [facility] LABORATORY MPV 9.2 7.6 - 12.9 [facility] LABORATORY nRBC % Auto 0.0 % [facility] LABORATORY nRBC Abs Auto 0.000 0.000 - [facility] 0.000 [facility] x10(3)/[facility] LABORATORY Specimen Anatomical Collection Method Collection Time Receive d Time (Source) Location / / Volume Laterality Blood specimen 08/13/2017 5:33 AM 018 6:04 (specimen) EST AM EST Resulting Agency Comment Spec In Lab Yonathan Smith MD HEMATOLOGY ORDERABLES Performing Organization Address City/State/[place] [address] (ABNORMAL) Prothrombin Time (08/13/2017 [...] City/State/[place] [address] (ABNORMAL) Basic Metabolic Panel (non-fasting) (08/13/2017 5:33 AM EST) athologist Signature Glucose Lvl 126 65 - 199 [facility] mg/dL [facility] LABORATORY [...] [facility] LABORATORY Estimated GFR >60 >=[address] [facility] LABORATORY Comment: The reported eGFR should be multiplied b y 1.2 for patients. The MDRD is not an appropriate measure o f renal function for patients with body mass extremes or in patients with acute kidney failure. http://Page[employer]/DHnkdep http://Page365/DHMCnkf Specimen Anatomical Collection Method Collection Time Receive d Time (Source) Location / / Volume Laterality Blood specimen 08/13/2017 5:33 AM 018 6:04 (specimen) EST AM EST Resulting Agency Comment Spec In Lab Yonathan Smith MD CHEMISTRY ORDERABLES Performing Organization Address City/[facility]/ZIP Code Phon e Number [address] POCT Glucose (08/13/2017 4:29 AM EST) athologist Signature POC Glucose 111 65 - 199 [facility]/dL [facility] LABORATORY Comment: Supplemental ranges: <140 mg/dL before meals <180 mg/dL all other times of the day Specimen Anatomical Collection Method Collection Time Receive d Time (Source) Location / / Volume Laterality Blood specimen 08/13/2017 4:29 AM 018 4:29 (specimen) EST AM EST Yonathan Smith MD POINT OF CARE TEST ORDERABLE S Performing Organization Address City/[facility]/ZIP Code Phon e Number [address] POCT Glucose (08/12/2017 11:28 PM EST) athologist Signature POC Glucose 164 65 - 199 [facility] mg/dL [facility] LABORATORY Comment: Supplemental ranges: <140 mg/dL before meals <180 mg/dL all other times of the day Specimen Anatomical Collection Method Collection Time Receive d Time (Source) Location / / Volume Laterality Blood specimen 08/12/2017 11:28 8 (specimen) PM EST 11:28 PM EST Yonathan Smith MD POINT OF CARE TEST ORDERABLE S Performing Organization Address City/[facility]/[place]IP [place] [address] (ABNORMAL) POCT Glucose (08/12/2017 7:40 PM EST) athologist Signature POC Glucose 209 (H) 65 - 199 [place] mg/dL [facility] LABORATORY Comment: Supplemental [...] Address City/State/ZIP Code Phon e Number [address] POCT Glucose (08/12/2017 4:24 PM EST) athologist Signature POC Glucose 161 65 - 199 [facility] mg/dL [facility] Comment: Supplemental ranges: <140 mg/dL before meals <180 mg/dL all other times of the day Specimen Anatomical Collection Method Collection Time Receive d Time (Source) Location / / Volume Laterality Blood specimen 08/12/2017 4:24 PM 018 4:24 (specimen) EST PM EST Yonathan Smith MD POINT OF CARE TEST ORDERABLE S Performing Organization Address City/State/[place] [address] POCT Glucose (08/12/2017 12:00 PM EST) athologist Signature POC Glucose 167 65 - 199 [place] mg/dL [facility] Comment: Supplemental ranges: <140 mg/dL before meals <180 mg/dL all other times of the day Specimen Anatomical Collection Method Collection Time Receive d Time (Source) Location / / Volume Laterality Blood specimen 08/12/2017 12:00 8 (specimen) PM EST 12:00 PM EST Yonathan Smith MD POINT OF CARE TEST ORDERABLE S Performing Organization Address City/State/[place] [address] POCT Glucose (08/12/2017 7:25 AM EST) P athologist Signature POC Glucose 152 65 - 199 [facility] mg/dL [facility] Comment: Supplemental [...] City/State/ZIP Code Phon e Number [place] [id number] (ABNORMAL) Differential, Automated (08/12/2017 6:29 AM EST) Patholo gist Method Time Signature Neutrophils % 78.7 % [facility] LABORATORY Neutr Abs (ANC) 7.94 (H) 1.70 - [facility] 6.10 [facility] x10(3)/[facility] LABORATORY Lymphocytes % 8.8 % [facility] LABORATORY Lymphocytes Abs 0.9 0.9 - 3.2 [facility] x10(3)/[facility] LABORATORY Monocytes % 7.8 % [facility] LABORATORY Monocyte Abs 0.8 0.3 - 0.9 [facility] x10(3)/[facility] LABORATORY Eosinophils % 3.9 % [facility] LABORATORY Eosinophils Abs 0.4 0.0 - 0.4 [facility] x10(3)/[facility] LABORATORY Basophils % 0.3 % [facility] LABORATORY Basophils Abs 0.0 0.0 - 0.1 [facility] x10(3)/[facility] LABORATORY Immature Gran % 0.50 [...] City/State/[place] [address] (ABNORMAL) Hemogram (08/12/2017 6:29 AM EST) Analysis Performed At Patho logist Time Signature WBC 10.1 (H) 4.0 - 9.5 [facility] x10(3)/[facility] LABORATORY RBC 3.02 (L) 4.58 - [facility] 5.54 [facility] x10(6)/[facility] LABORATORY Hemoglobin 8.7 (L) 13.7 - [facility] 16.5 gm/dL [facility] LABORATORY Hematocrit 28.1 (L) 40.5 - [facility] 48.5 % [facility]ATORY MCV 93.0 82.9 - [facility] 93.1 [facility] LABORATORY MCH 28.8 27.5 - [facility] 32.1 pg [facility]ORY MCHC 31.0 (L) 32.0 - [facility] 35.7 gm/dL [facility] LABORATORY Platelets 223 145 - 357 [facility] x10(3)/[facility] LABORATORY RDWSD 56.1 (H) 36.0 - [facility] 45.0 [facility] LABORATORY RDWCV 16.4 (H) 11.4 - [facility] 13.8 % [facility] LABORATORY MPV 9.0 7.6 - 12.9 [facility] LABORATORY nRBC % Auto 0.0 % [facility] LABORATORY nRBC Abs Auto 0.000 0.000 - [place] 0.000 [facility] x10(3)/[facility] LABORATORY Specimen Anatomical Collection Method Collection Time Receive d Time (Source) Location / / Volume Laterality Blood specimen 08/12/2017 6:29 AM 018 6:38 (specimen) EST AM EST Resulting Agency Comment Spec In Lab Yonathan Smith MD HEMATOLOGY ORDERABLES Performing Organization Address City/[facility]/[place] [address] (ABNORMAL) Prothrombin Time (08/12/2017 [...] Organization Address City/State/[place] [address] (ABNORMAL) Basic Metabolic Panel (non-fasting) (08/12/2017 6:29 AM EST) athologist Signature Glucose Lvl 151 65 - 199 [facility] mg/dL [facility] LABORATORY [...] [facility] LABORATORY Estimated GFR >60 >=60 [facility] LABORATORY Comment: The reported eGFR should be multiplied b y 1.2 for patients. The MDRD is not an appropriate measure o f renal function for patients with body mass extremes or in patients with acute kidney failure. http://Page365/DHnkdep http://Page365/DHMCnkf Specimen Anatomical Collection Method Collection Time Receive d Time (Source) Location / / Volume Laterality Blood specimen 08/12/2017 6:29 AM 018 6:38 (specimen) EST AM EST Resulting Agency Comment Spec In Lab Yonathan Smith MD CHEMISTRY ORDERABLES Performing Organization Address City/[facility]/[place]IP [place] [address] POCT Glucose (08/12/2017 4:08 AM EST) athologist Signature POC Glucose 181 65 - 199 [facility]/dL [facility] Comment: Supplemental ranges: <140 mg/dL before meals <180 mg/dL all other times of the day Specimen Anatomical Collection Method Collection Time Receive d Time (Source) Location / / Volume Laterality Blood specimen 08/12/2017 4:08 AM 018 4:08 (specimen) EST AM EST Yonathan Smith MD POINT OF CARE TEST ORDERABLE S Performing Organization Address City/[facility]/[place] [address] (ABNORMAL) POCT Glucose (08/12/2017 12:17 AM EST) athologist Signature POC Glucose 221 (H) 65 - 199 [facility]/dL [facility] Comment: Supplemental ranges: <140 mg/dL before meals <180 mg/dL all other times of the day Specimen Anatomical Collection Method Collection Time Receive d Time (Source) Location / / Volume Laterality Blood specimen 08/12/2017 12:17 8 (specimen) AM EST 12:17 AM EST Yonathan Smith MD POINT OF CARE TEST ORDERABLE S Performing Organization Address City/[facility]/[place] [address] (ABNORMAL) POCT Glucose (08/11/2017 8:52 PM EST) athologist Signature POC Glucose 221 (H) 65 - 199 [place] mg/dL [facility] Comment: Supplemental ranges: <140 mg/dL before meals <180 mg/dL all other times of the day Specimen Anatomical Collection Method Collection Time Receive d Time (Source) Location / / Volume Laterality Blood specimen 08/11/2017 8:52 PM 018 8:52 (specimen) EST PM EST Yonathan Smith MD POINT OF CARE TEST ORDERABLE S Performing Organization Address City/[facility]/[place]IP [place] [address] POCT Glucose (08/11/2017 5:59 PM EST) athologist Signature POC Glucose 169 65 - 199 [place] mg/dL [facility] Comment: Supplemental ranges: <140 mg/dL before meals <180 mg/dL all other times of the day Specimen Anatomical Collection Method Collection Time Receive d Time (Source) Location / / Volume Laterality Blood specimen 08/11/2017 5:59 PM 018 5:59 (specimen) EST PM EST Yonathan Smtih MD POINT OF CARE TEST ORDERABLE S Performing Organization Address City/State/[place] [address] (ABNORMAL) POCT Glucose (08/11/2017 4:08 PM EST) athologist Signature POC Glucose 240 (H) 65 - 199 [place] mg/dL [facility] Comment: Supplemental ranges: <140 mg/dL before meals <180 mg/dL all other times of the day Specimen Anatomical Collection Method Collection Time Receive d Time (Source) Location / / Volume Laterality Blood specimen 08/11/2017 4:08 PM 018 4:08 (specimen) EST PM EST Yonathan Smith MD POINT OF CARE TEST ORDERABLE S Performing Organization Address City/[facility]/ZIP Code Phon e Number [address] POCT Glucose (08/11/2017 12:04 PM EST) athologist Signature POC Glucose 182 65 - 199 [facility] Comment: Supplemental ranges: <140 mg/dL before meals <180 mg/dL all other times of the day Specimen Anatomical Collection Method Collection Time Receive d Time (Source) Location / / Volume Laterality Blood specimen 08/11/2017 12:04 8 (specimen) PM EST 12:04 PM EST Yonathan Smith MD POINT OF CARE TEST ORDERABLE S Performing Organization Address City/[facility]/ZIP Code Phon e Number [address] POCT Glucose (08/11/2017 7:31 AM EST) athologist Signature POC Glucose 156 65 - 199 [facility]/dL [facility] Comment: Supplemental ranges: <140 mg/dL before meals <180 mg/dL all other times of the day Specimen Anatomical Collection Method Collection Time Receive d Time (Source) Location / / Volume Laterality Blood specimen 08/11/2017 7:31 AM 018 7:31 (specimen) EST AM EST Yonathan Smith MD POINT OF CARE TEST ORDERABLE S Performing Organization Address City/[facility]/ZIP Code Phon e Number [address] (ABNORMAL) Differential, Automated (08/11/2017 6:16 AM EST) [facility] Time Signature Neutrophils % 83.7 % [facility] LABORATORY Neutr Abs (ANC) 10.76 (H) 1.70 - [facility] 6.10 [facility] x10(3)/[facility] LABORATORY Lymphocytes % 6.0 % [facility] LABORATORY Lymphocytes Abs 0.8 (L) 0.9 - 3.2 [facility] x10(3)/[facility] LABORATORY Monocytes % 7.5 % [facility] LABORATORY Monocyte Abs 1.0 (H) 0.3 - 0.9 [facility] x10(3)/[facility] LABORATORY Eosinophils % 2.0 % [facility] LABORATORY Eosinophils Abs 0.3 0.0 - 0.4 [facility] x10(3)/[facility] LABORATORY Basophils % 0.3 % [facility] LABORATORY Basophils Abs 0.0 0.0 - 0.1 [facility] x10(3)/[facility] LABORATORY Immature Gran % 0.50 [...] City/State/[place] [address] (ABNORMAL) Hemogram (08/11/2017 6:16 AM EST) Analysis Performed At Patho logist Time Signature WBC 12.9 (H) 4.0 - 9.5 [facility] x10(3)/[facility] LABORATORY RBC 3.28 (L) 4.58 - [facility] 5.54 [facility] x10(6)/[facility] LABORATORY Hemoglobin 9.5 (L) 13.7 - [place] 16.5 gm/dL [facility] LABORATORY Hematocrit 29.8 (L) 40.5 - [place] 48.5 % [facility] LABORATORY MCV 90.9 82.9 - [facility] 93.1 [facility] LABORATORY MCH 29.0 27.5 - [place] 32.1 pg [facility] LABORATORY MCHC 31.9 (L) 32.0 - [place] 35.7 gm/dL [facility] LABORATORY Platelets 236 145 - 357 [facility] x10(3)/[facility] LABORATORY RDWSD 53.5 (H) 36.0 - [place] 45.0 [facility] LABORATORY RDWCV 16.3 (H) 11.4 - [facility] 13.8 % [facility] LABORATORY MPV 8.8 7.6 - 12.9 [facility] LABORATORY nRBC % Auto 0.0 % [facility] LABORATORY nRBC Abs Auto 0.000 0.000 - [facility] 0.000 [facility] x10(3)/[facility] LABORATORY Specimen Anatomical Collection Method Collection Time Receive d Time (Source) Location / / Volume Laterality Blood specimen 08/11/2017 6:16 AM 018 6:24 (specimen) EST AM EST Resulting Agency Comment Spec In Lab Yonathan Smith MD HEMATOLOGY ORDERABLES Performing Organization Address City/State/[place] [address] (ABNORMAL) Prothrombin Time (08/11/2017 [...] City/State/[place] [address] Basic Metabolic Panel (non-fasting) (08/11/2017 6:16 AM EST) P athologist Signature Glucose Lvl 139 65 - 199 [facility] mg/dL [facility] LABORATORY [...] [facility] LABOR[facility]ORY Estimated GFR >60 >=60 [facility] LABORATORY Comment: The reported eGFR should be multiplied b y 1.2 for patients. The MDRD is not an appropriate measure o f renal function for patients with body mass extremes or in patients with acute kidney failure. http://[employer].Swiftpage/DHnkdep http://Page365/DHMCnkf Specimen Anatomical Collection Method Collection Time Receive d Time (Source) Location / / Volume Laterality Blood specimen 08/11/2017 6:16 AM 018 6:24 (specimen) EST AM EST Resulting Agency Comment Spec In Lab Yonathan Smith MD CHEMISTRY ORDERABLES Performing Organization Address City/State/ZIP Code Phon e Number [address] POCT Glucose (08/11/2017 4:07 AM EST) athologist Signature POC Glucose 162 65 - 199 [place] mg/dL [facility] Comment: Supplemental ranges: <140 mg/dL before meals <180 mg/dL all other times of the day Specimen Anatomical Collection Method Collection Time Receive d Time (Source) Location / / Volume Laterality Blood specimen 08/11/2017 4:07 AM 018 4:07 (specimen) EST AM EST Yonathan Smith MD POINT OF CARE TEST ORDERABLE S Performing Organization Address City/[facility]/ZIP Code Phon e Number [address] POCT Glucose (08/10/2017 11:59 PM EST) athologist Signature POC Glucose 166 65 - 199 [place] mg/dL [facility] Comment: Supplemental [...] Address City/State/ZIP Code Phon e Number [address] POCT Glucose (08/10/2017 8:12 PM EST) athologist Signature POC Glucose 156 65 - 199 [place] mg/dL [facility] Comment: Supplemental [...] City/State/ZIP Code Phon e Number [place] [id number] Drive (ABNORMAL) POCT Glucose (08/10/2017 4:42 PM EST) P athologist Signature POC Glucose 211 (H) 65 - 199 [facility] Comment: Supplemental [...] Address City/State/ZIP Code Phon e Number [address] (ABNORMAL) Differential, Automated (08/10/2017 2:30 PM EST) Patholo gist Method Time Signature Neutrophils % 87.6 % [facility] LABORATORY Neutr Abs (ANC) 9.90 (H) 1.70 - [facility] 6.10 [facility] x10(3)/[facility] LABORATORY Lymphocytes % 4.3 % [facility] LABORATORY Lymphocytes Abs 0.5 (L) 0.9 - 3.2 [facility] x10(3)/[facility] LABORATORY Monocytes % 6.0 % [facility] LABORATORY Monocyte Abs 0.7 0.3 - 0.9 [facility] x10(3)/[facility] LABORATORY Eosinophils % 1.1 % [facility] LABORATORY Eosinophils Abs 0.1 0.0 - 0.4 [facility] x10(3)/[facility] LABORATORY Basophils % 0.4 % [facility] LABORATORY Basophils Abs 0.0 0.0 - 0.1 [facility] x10(3)/[facility] LABORATORY [...] City/State/[place] [address] (ABNORMAL) Hemogram (08/10/2017 2:30 PM EST) Analysis Performed At Patho logist Time Signature WBC 11.3 (H) 4.0 - 9.5 [facility] x10(3)/[facility] LABORATORY RBC 3.13 (L) 4.58 - [facility] 5.54 [facility] x10(6)/[facility] LABORATORY Hemoglobin 8.9 (L) 13.7 - [facility] 16.5 gm/dL [facility] LABORATORY Hematocrit 28.4 (L) 40.5 - [facility] 48.5 % [facility] LABORATORY MCV 90.7 82.9 - [facility] 93.1 [facility] LABORATORY MCH 28.4 27.5 - [facility] 32.1 pg [facility] MCHC 31.3 (L) 32.0 - [facility] 35.7 gm/dL [facility]OR[facility]ORY Platelets 213 145 - 357 [facility] x10(3)/[facility] LABORATORY RDWSD 53.7 (H) 36.0 - [facility] 45.0 [facility] LABORATORY RDWCV 16.4 (H) 11.4 - [facility] 13.8 % [facility] LABORATORY MPV 8.9 7.6 - 12.9 [facility] LABORATORY nRBC % Auto 0.0 % [facility] LABORATORY nRBC Abs Auto 0.000 0.000 - [facility] M [employer] 0.000 [facility] x10(3)/[facility] LABORATORY Specimen Anatomical Collection Method Collection Time Receive d Time (Source) Location / / Volume Laterality Blood specimen 08/10/2017 2:30 PM 018 2:48 (specimen) EST PM EST Resulting Agency Comment Spec In Lab Yonathan Smith MD HEMATOLOGY ORDERABLES Performing Organization Address City/[facility]/ZIP Code Phon e Number [address] (ABNORMAL) POCT Glucose (08/10/2017 1:50 PM EST) athologist Signature POC Glucose 243 (H) 65 - 199 [facility]/dL [facility] Comment: Supplemental ranges: <140 mg/dL before meals <180 mg/dL all other times of the day Specimen Anatomical Collection Method Collection Time Receive d Time (Source) Location / / Volume Laterality Blood specimen 08/10/2017 1:50 PM 018 1:50 (specimen) EST PM EST Yonathan Smith MD POINT OF CARE TEST ORDERABLE S Performing Organization Address City/[facility]/ZIP Code Phon e Number [address] POCT Glucose (08/10/2017 11:21 AM EST) athologist Signature POC Glucose 156 65 - 199 [facility]/dL [facility] Comment: Supplemental ranges: <140 mg/dL before meals <180 mg/dL all other times of the day Specimen Anatomical Collection Method Collection Time Receive d Time (Source) Location / / Volume Laterality Blood specimen 08/10/2017 11:21 8 (specimen) AM EST 11:21 AM EST Yonathan Smith MD POINT OF CARE TEST ORDERABLE S Performing Organization Address City/[facility]/ZIP Code Phon e Number [address] (ABNORMAL) Differential, Automated (08/10/2017 10:28 AM EST) [facility] Method Time Signature Neutrophils % 85.3 % [facility] LABORATORY Neutr Abs (ANC) 9.43 (H) 1.70 - [facility] 6.10 [facility] x10(3)/[facility] L LABORATORY Lymphocytes % 5.5 % [facility] LABORATORY Lymphocytes Abs 0.6 (L) 0.9 - 3.2 [facility] x10(3)/[facility] LABORATORY Monocytes % 5.9 % [facility] LABORATORY Monocyte Abs 0.6 0.3 - 0.9 [facility] x10(3)/[facility] LABORATORY Eosinophils % 2.1 % [facility] LABORATORY Eosinophils Abs 0.2 0.0 - 0.4 [facility] x10(3)/[facility] LABORATORY Basophils % 0.4 % [facility] LABORATORY Basophils Abs 0.0 0.0 - 0.1 [facility] x10(3)/[facility] LABORATORY Immature Gran % 0.80 [...] City/State/[place] [address] (ABNORMAL) Hemogram (08/10/2017 10:28 AM EST) Analysis Performed At Patho logist Time Signature WBC 11.0 (H) 4.0 - 9.5 [facility] x10(3)/[facility] LABORATORY RBC 3.02 (L) 4.58 - [facility] 5.54 [facility] x10(6)/[facility] LABORATORY Hemoglobin 8.8 (L) 13.7 - [facility] 16.5 gm/dL [facility] LABORATORY Hematocrit 28.1 (L) 40.5 - [place] 48.5 % [facility] LABORATORY MCV 93.0 82.9 - [place] 93.1 [facility] LABORATORY MCH 29.1 27.5 - [place] 32.1 pg [facility] LABORATORY MCHC 31.3 (L) 32.0 - [place] 35.7 gm/dL [facility] LABORATORY Platelets 207 145 - 357 [place] x10(3)/[facility] LABORATORY RDWSD 55.3 (H) 36.0 - [place] 45.0 [facility] LABORATORY RDWCV 16.4 (H) 11.4 - [place] 13.8 % [facility] LABORATORY MPV 9.0 7.6 - 12.9 [facility] LABORATORY nRBC % Auto 0.0 % [facility] nRBC Abs Auto 0.000 0.000 - [place] 0.000 [facility] x10(3)/[facility] LABORATORY Specimen Anatomical Collection Method Collection Time Receive d Time (Source) Location / / Volume Laterality Blood specimen 08/10/2017 10:28 8 (specimen) AM EST 10:35 AM EST Resulting Agency Comment Spec In Lab Yonathan Smith MD HEMATOLOGY ORDERABLES Performing Organization Address City/State/[place] [address] VS Angiogram/intervention (vascular) (08/10/2017 [...] 2.5x80 5. Completion RLE angiogram 6. L RN CARDIOVASCULAR ICU angiogram 7. 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 L RN CARDIOVASCULAR ICU access in the distal L RN CARDIOVASCULAR ICU. - Closure device: Mynx Technical Procedure: ?The [...] for a 45cm 5F Destination. V18 and Rogers a nd QuickCross catheters were used to [...] bifurcation. Access appeared in the distal R RN CARDIOVASCULAR ICU. Closure and sheath removal was performed with [...] 2.5x80 5. Completion RLE angiogram 6. L RN CARDIOVASCULAR ICU angiogram 7. 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 L RN CARDIOVASCULAR ICU access in the distal L RN CARDIOVASCULAR ICU. - Closure device: Mynx Technical Procedure: The [...] for a 45cm 5F Destination. V18 and Rogers a nd QuickCross catheters were used to [...] bifurcation. Access appeared in the distal R RN CARDIOVASCULAR ICU. Closure and sheath removal was performed with [...] (ABNORMAL) Differential, Automated (08/10/2017 5:50 AM EST) [facility] Method Time Signature Neutrophils % 80.1 % [facility] LABORATORY Neutr Abs (ANC) 9.01 (H) 1.70 - [facility] 6.10 [facility] x10(3)/[facility] LABORATORY Lymphocytes % 8.8 % [facility] LABORATORY Lymphocytes Abs 1.0 0.9 - 3.2 [facility] x10(3)/[facility] LABORATORY Monocytes % 8.3 % [facility] LABORATORY Monocyte Abs 0.9 0.3 - 0.9 [facility] x10(3)/[facility] LABORATORY Eosinophils % 2.0 % [facility] LABORATORY Eosinophils Abs 0.2 0.0 - 0.4 [facility] x10(3)/[facility] LABORATORY Basophils % 0.4 % [facility] LABORATORY Basophils Abs 0.0 0.0 - 0.1 [facility] x10(3)/[facility] LABORATORY [...] Organization Address City/State/[place]IP [place] [address] (ABNORMAL) Hemogram (08/10/2017 5:50 AM EST) Analysis Performed At Patho logist Time Signature WBC 11.3 (H) 4.0 - 9.5 [facility] x10(3)/[facility] LABORATORY RBC 3.15 (L) 4.58 - [place] 5.54 [facility] x10(6)/[facility] LABORATORY Hemoglobin 8.9 (L) 13.7 - [facility] 16.5 gm/dL [facility] LABORATORY Hematocrit 29.0 (L) 40.5 - [facility] RYAN 48.5 % [facility] LABORATORY MCV 92.1 82.9 - [facility] RYAN 93.1 [facility] LABORATORY MCH 28.3 27.5 - [facility] RYAN 32.1 pg [facility] LABORATORY MCHC 30.7 (L) 32.0 - [facility] RYAN 35.7 gm/dL [facility] LABORATORY Platelets 231 145 - 357 [facility] x[facility](3[facility] RDWSD 53.9 (H) 36.0 - [facility] RYAN 45.0 [facility] LABORATORY RDWCV 16.2 (H) 11.4 - [facility] RYAN 13.8 % [facility] LABORATORY MPV 8.7 7.6 - 12.9 [facility] LABORATORY nRBC % Auto 0.0 % [facility] LABORATORY nRBC Abs Auto 0.000 0.000 - [facility] 0.000 [facility] x10(3)/[facility] LABORATORY Specimen Anatomical Collection Method Collection Time Receive d Time (Source) Location / / Volume Laterality Blood specimen 08/10/2017 5:50 AM 018 5:59 (specimen) EST AM EST Resulting Agency Comment Spec In Lab Yonathan Smith MD HEMATOLOGY ORDERABLES Performing Organization Address City/State/[place] [address] (ABNORMAL) Basic Metabolic Panel (non-fasting) (08/10/2017 5:50 AM EST) P athologist Signature Glucose Lvl 135 65 - 199 [facility] mg/dL [facility] LABORATORY [...] [facility] LABORATORY Estimated GFR >60 >=60 [facility] LABORATORY Comment: The reported eGFR should be multiplied b y 1.2 for patients. The MDRD is not an appropriate measure o f renal function for patients with body mass extremes or in patients with acute kidney failure. http://[employer].Swiftpage/DHnkdep http://[employer].Swiftpage/DHMCnkf Specimen Anatomical Collection Method Collection Time Receive d Time (Source) Location / / Volume Laterality Blood specimen 08/10/2017 5:50 AM 018 5:59 (specimen) EST AM EST Resulting Agency Comment Spec In Lab Yonathan Smith MD CHEMISTRY ORDERABLES Performing Organization Address [facility] [place] [address] (ABNORMAL) Prothrombin Time (08/10/2017 [...] Performing Organization Address City/[facility] [place] [address] (ABNORMAL) POCT Glucose (08/10/2017 4:01 AM EST) athologist Signature POC Glucose 206 (H) 65 - 199 [facility] mg/dL [facility] LABORATORY Comment: Supplemental [...] Address City/State/ZIP Code Phon e Number [address] POCT Glucose (08/10/2017 2:01 AM EST) athologist Signature POC Glucose 188 65 - 199 [place] mg/dL [facility] LABORATORY Comment: Supplemental ranges: <140 mg/dL before meals <180 mg/dL all other times of the day Specimen Anatomical Collection Method Collection Time Receive d Time (Source) Location / / Volume Laterality Blood specimen 08/10/2017 2:01 AM 018 2:01 (specimen) EST AM EST Yonathan Smith MD POINT OF CARE TEST ORDERABLE S Performing Organization Address City/[facility]/[place]IP [place] [address] (ABNORMAL) POCT Glucose (08/09/2017 11:42 PM EST) athologist Signature POC Glucose 283 (H) 65 - 199 [place] mg/dL [facility] LABORATORY Comment: Supplemental ranges: <140 mg/dL before meals <180 mg/dL all other times of the day Specimen Anatomical Collection Method Collection Time Receive d Time (Source) Location / / Volume Laterality Blood specimen 08/09/2017 11:42 8 (specimen) PM EST 11:42 PM EST Yonathan Smith MD POINT OF CARE TEST ORDERABLE S Performing Organization Address City/State/[place] [address] POCT Glucose (08/09/2017 8:55 PM EST) athologist Signature POC Glucose 182 65 - 199 [place] mg/dL [facility] LABORATORY Comment: Supplemental ranges: <140 mg/dL before meals <180 mg/dL all other times of the day Specimen Anatomical Collection Method Collection Time Receive d Time (Source) Location / / Volume Laterality Blood specimen 08/09/2017 8:55 PM 018 8:55 (specimen) EST PM EST Yonathan Smith MD POINT OF CARE TEST ORDERABLE S Performing Organization Address City/[facility]/[place] [address] (ABNORMAL) APTT (08/09/2017 6:42 [...] Performing Organization Address City/[facility]/[place] [address] POCT Glucose (08/09/2017 4:41 PM EST) athologist Signature POC Glucose 195 65 - 199 [facility] mg/dL [facility] LABORATORY Comment: Supplemental ranges: <140 mg/dL before meals <180 mg/dL all other times of the day Specimen Anatomical Collection Method Collection Time Receive d Time (Source) Location / / Volume Laterality Blood specimen 08/09/2017 4:41 PM 018 4:41 (specimen) EST PM EST Yonathan Smith MD POINT OF CARE TEST ORDERABLE S Performing Organization Address City/[facility]/[place]IP [place] [address] POCT Glucose (08/09/2017 12:29 PM EST) athologist Signature POC Glucose 140 65 - 199 [facility] mg/dL [facility] LABORATORY Comment: Supplemental ranges: <140 mg/dL before meals <180 mg/dL all other times of the day Specimen Anatomical Collection Method Collection Time Receive d Time (Source) Location / / Volume Laterality Blood specimen 08/09/2017 12:29 8 (specimen) PM EST 12:29 PM EST Yonathan Smith MD POINT OF CARE TEST ORDERABLE S Performing Organization Address [facility]/ZIP Code Phon e Number [address] POCT Glucose (08/09/2017 9:59 AM EST) P athologist Signature POC Glucose 135 65 - 199 [facility] mg/dL [facility] LABORATORY Comment: Supplemental ranges: <140 mg/dL before meals <180 mg/dL all other times of the day Specimen Anatomical Collection Method Collection Time Receive d Time (Source) Location / / Volume Laterality Blood specimen 08/09/2017 9:59 AM 018 9:59 (specimen) EST AM EST Yonathan Smith MD POINT OF CARE TEST ORDERABLE S Performing Organization Address [facility]/ZIP Code Phon e Number [address] Specimen to Pathology (08/09/2017 [...] Performing Organization Address City/[facility]/[place] [address] Surgical Pathology Report (08/09/2017 8:40 AM EST) Component Value Ref Test Analysis Performed At Patholo gist Range Method Time Signature Surgical [id number] ? Location: [facility]; [facility]; A [facility] Report The signing pathologist has (i) [...] Henrique Flower Verified: ??08/13/2017 ?Pathologist Performed at: ??-[facility] Dept. of Pathology, [place], [place] CLINICAL INFORMATION Specimen Submitted: A - [...] City/State/[place] [address] Anaerobic Culture (08/09/2017 8:30 AM EST) [facility] Pingboard Method Time Signature Anaerobic No anaerobic [facility] Culture organisms [facility] LABORATORY Specimen Anatomical Collection Method Collection [...] Performing Organization Address City/[facility]/[place] [address] (ABNORMAL) Abscess/Wound Aspirate Culture (08/09/2017 8:30 AM EST) [facility] Method Time Signature Abscess/Wound Moderate mixed [facility] Aspirate bacterial [place] Culture morphotypes [facility] normal LABORATORY cutaneous leroy (A) Gram Stain Rare White Blood Cells [place] Few Gram Positive Cocci in pairs [place] () [facility] LABORATORY Organism Gram Positive [place] Cocci in pairs [place] () [facility] LABORATORY Specimen Anatomical Collection [...] Performing Organization Address City/[facility]/ZIP Code Phon e Number [place] [id number]OS[address] POCT Glucose (08/09/2017 4:28 AM EST) P athologist Signature POC Glucose 128 65 - 199 [facility] mg/dL [facility] LABORATORY Comment: Supplemental ranges: <140 mg/dL before meals <180 mg/dL all other times of the day Specimen Anatomical Collection Method Collection Time Receive d Time (Source) Location / / Volume Laterality Blood specimen 08/09/2017 4:28 AM 018 4:28 (specimen) EST AM EST Yonathan Smith MD POINT OF CARE TEST ORDERABLE S Performing Organization Address City/State/[place] [address] ABORH Recheck Status (08/09/2017 1:10 AM EST) [facility] Method Time Signature ABORH Type Completed [facility] LABORATORY Specimen Anatomical Collection Method Collection Time Receive d Time (Source) Location / / Volume Laterality Blood specimen 08/09/2017 1:10 AM 018 1:35 (specimen) EST AM EST Resulting Agency Comment Spec In Lab Yonathan Smith MD BLOOD BANK ORDERABLES Performing Organization Address City/[facility]/[place] [address] Antibody screen (08/09/2017 1:10 AM EST) [facility] Method Time Signature Ab Screen Negative [facility] LABORATORY Expires at 08/12/2017 [facility] [id number] on: [facility] LABORATORY Specimen Anatomical Collection Method Collection Time Receive d Time (Source) Location / / Volume Laterality Blood specimen 08/09/2017 1:10 AM 018 1:35 (specimen) EST AM EST Resulting Agency Comment Spec In Lab Yonathan Smith MD BLOOD BANK ORDERABLES Performing Organization Address City/[facility]/[place] [address] ABO/Rh Typing (08/09/2017 1:10 [...] Performing Organization Address City/[facility]/[place] [address] (ABNORMAL) APTT (08/09/2017 1:10 [...] City/State/[place] [address] (ABNORMAL) Differential, Automated (08/09/2017 1:10 AM EST) [facility] gist Method Time Signature Neutrophils % 76.2 % [facility] LABORATORY Neutr Abs (ANC) 8.59 (H) 1.70 - [facility] 6.10 [facility] x10(3)/[facility] LABORATORY Lymphocytes % 11.0 % [facility] LABORATORY Lymphocytes Abs 1.2 0.9 - 3.2 [facility] x10(3)/[facility] LABORATORY Monocytes % 8.4 % [facility] LABORATORY Monocyte Abs 1.0 (H) 0.3 - 0.9 [facility] x10(3)/[facility] LABORATORY Eosinophils % 3.5 % [facility] LABORATORY Eosinophils Abs 0.4 0.0 - 0.4 [facility] x10(3)/[facility] LABORATORY Basophils % 0.5 % [facility] LABORATORY Basophils Abs 0.1 0.0 - 0.1 [facility] x10(3)/[facility] LABORATORY [...] City/State/[place] [address] (ABNORMAL) Hemogram (08/09/2017 1:10 AM EST) Analysis Performed At Patho logist Time Signature WBC 11.3 (H) 4.0 - 9.5 [facility] x10(3)/[facility] LABORATORY RBC 3.47 (L) 4.58 - [facility] 5.54 [facility] x10(6)/[facility] LABORATORY Hemoglobin 10.0 (L) 13.7 - [facility] 16.5 gm/dL [facility] LABORATORY Hematocrit 31.9 (L) 40.5 - [facility] 48.5 % [facility] LABORATORY MCV 91.9 82.9 - [facility] 93.1 [facility] LABORATORY MCH 28.8 27.5 - [facility] [place] 32.1 pg [facility] LABORATORY MCHC 31.3 (L) 32.0 - [facility] 35.7 gm/dL [facility] LABORATORY Platelets 234 145 - 357 [facility] x10(3)/[facility] LABORATORY RDWSD 54.0 (H) 36.0 - [facility] [place] 45.0 [facility] LABORATORY RDWCV 16.2 (H) 11.4 - [facility] 13.8 % [facility] LABORATORY MPV 8.7 7.6 - 12.9 [facility] LABORATORY nRBC % Auto 0.0 % [facility] LABORATORY nRBC Abs Auto 0.000 0.000 - [place] 0.000 [facility] x10(3)/[facility] LABORATORY Specimen Anatomical Collection Method Collection Time Receive d Time (Source) Location / / Volume Laterality Blood specimen 08/09/2017 1:10 AM 018 1:19 (specimen) EST AM EST Resulting Agency Comment Spec In Lab Yonathan Smith MD HEMATOLOGY ORDERABLES Performing Organization Address [facility] [place] [address] (ABNORMAL) Prothrombin Time (08/09/2017 [...] MD HEMATOLOGY ORDERABLES Performing Organization Address [facility] [place] [address] (ABNORMAL) Basic Metabolic Panel (non-fasting) (08/09/2017 1:10 AM EST) athologist Signature Glucose Lvl 108 65 - 199 [facility] mg/dL [facility] LABORATORY [...] or in patients with acute kidney failure. http://[employer]/DHnkdep http://[employer]/DHMCnkf Specimen Anatomical Collection Method Collection Time Receive d Time (Source) Location / / Volume Laterality Blood specimen 08/09/2017 1:10 AM 018 1:19 (specimen) EST AM EST Resulting Agency Comment Spec In Lab Yonathan Smith MD CHEMISTRY ORDERABLES Performing Organization Address City/State/ZIP Code Phon e Number [address] POCT Glucose (08/09/2017 12:05 AM EST) athologist Signature POC Glucose 128 65 - 199 [facility] mg/dL [facility] LABORATORY Comment: Supplemental ranges: <140 mg/dL before meals <180 mg/dL all other times of the day Specimen Anatomical Collection Method Collection Time Receive d Time (Source) Location / / Volume Laterality Blood specimen 08/09/2017 12:05 8 (specimen) AM EST 12:05 AM EST Yonathan Smith MD POINT OF CARE TEST ORDERABLE S Performing Organization Address City/State/[place] [address] (ABNORMAL) POCT Glucose (08/08/2017 7:36 PM EST) athologist Signature POC Glucose 215 (H) 65 - 199 [facility] mg/dL [facility] LABORATORY Comment: Supplemental ranges: <140 mg/dL before meals <180 mg/dL all other times of the day Specimen Anatomical Collection Method Collection Time Receive d Time (Source) Location / / Volume Laterality Blood specimen 08/08/2017 7:36 PM 018 7:36 (specimen) EST PM EST Yonathan Smith MD POINT OF CARE TEST ORDERABLE S Performing Organization Address City/[facility]/[place] [address] (ABNORMAL) POCT Glucose (08/08/2017 6:23 PM EST) athologist Signature POC Glucose 216 (H) 65 - 199 [facility] mg/dL [facility] LABORATORY Comment: Supplemental ranges: <140 mg/dL before meals <180 mg/dL all other times of the day Specimen Anatomical Collection Method Collection Time Receive d Time (Source) Location / / Volume Laterality Blood specimen 08/08/2017 6:23 PM 018 6:23 (specimen) EST PM EST Yonathan Smith MD POINT OF CARE TEST ORDERABLE S Performing Organization Address City/[facility]/[place] [address] (ABNORMAL) APTT (08/08/2017 6:00 [...] Performing Organization Address City/[facility]/ZIP Code Phon [place] [address] POCT Glucose (08/08/2017 4:42 PM EST) athologist Signature POC Glucose 78 65 - 199 [facility] mg/dL [facility] LABORATORY Comment: Supplemental ranges: <140 mg/dL before meals <180 mg/dL all other times of the day Specimen Anatomical Collection Method Collection Time Receive d Time (Source) Location / / Volume Laterality Blood specimen 08/08/2017 4:42 PM 018 4:42 (specimen) EST PM EST Yonathan Smith MD POINT OF CARE TEST ORDERABLE S Performing Organization Address City/State/Z[place] [address] (ABNORMAL) POCT Glucose (08/08/2017 4:01 PM EST) athologist Signature POC Glucose 58 (L) 65 - 199 [facility] mg/dL [facility] LABORATORY Comment: Supplemental ranges: <140 mg/dL before meals <180 mg/dL all other times of the day Specimen Anatomical Collection Method Collection Time Receive d Time (Source) Location / / Volume Laterality Blood specimen 08/08/2017 4:01 PM 018 4:01 (specimen) EST PM EST Yonathan Smith MD POINT OF CARE TEST ORDERABLE S Performing Organization Address City/State/Z[place] [address] POCT Glucose (08/08/2017 11:51 AM EST) athologist Signature POC Glucose 90 65 - 199 [facility] mg/dL [facility] LABORATORY Comment: Supplemental ranges: <140 mg/dL before meals <180 mg/dL all other times of the day Specimen Anatomical Collection Method Collection Time Receive d Time (Source) Location / / Volume Laterality Blood specimen 08/08/2017 11:51 8 (specimen) AM EST 11:51 AM EST Yonathan Smith MD POINT OF CARE TEST ORDERABLE S Performing Organization Address City/State/Z[place] [address] (ABNORMAL) APTT (08/08/2017 10:27 [...] Performing Organization Address City/[facility]/ZIP Code Phon e Number [address] POCT Glucose (08/08/2017 8:02 AM EST) athologist Signature POC Glucose 178 65 - 199 [facility] mg/dL [facility] LABORATORY Comment: Supplemental ranges: <140 mg/dL before meals <180 mg/dL all other times of the day Specimen Anatomical Collection Method Collection Time Receive d Time (Source) Location / / Volume Laterality Blood specimen 08/08/2017 8:02 AM 018 8:02 (specimen) EST AM EST Yonathan Smith MD POINT OF CARE TEST ORDERABLE S Performing Organization Address City/[facility]/ZIP [place] [address] (ABNORMAL) APTT (08/08/2017 4:51 AM EST) athologist Signature PTT >160 25 - 35 [facility] (Critical) sec [facility] LABORATORY Comment: Called by: HOWARD, Read [...] City/State/[place] [address] (ABNORMAL) Differential, Automated (08/08/2017 4:51 AM EST) [facility] gist Method Time Signature Neutrophils % 77.9 % [facility] LABORATORY Neutr Abs (ANC) 8.17 (H) 1.70 - [facility] 6.10 [facility] x10(3)/[facility] LABORATORY Lymphocytes % 10.3 % [facility] LABORATORY Lymphocytes Abs 1.1 0.9 - 3.2 [facility] x10(3)/[facility] LABORATORY Monocytes % 7.0 % [facility] LABORATORY Monocyte Abs 0.7 0.3 - 0.9 [facility] x10(3)/[facility] LABORATORY Eosinophils % 3.6 % [facility] LABORATORY Eosinophils Abs 0.4 0.0 - 0.4 [facility] x10(3)/[facility] LABORATORY Basophils % 0.5 % [facility] LABORATORY Basophils Abs 0.0 0.0 - 0.1 [facility] x10(3)/[facility] LABORATORY Immature Gran % 0.70 [...] Address City/State/ZIP Code Phon e Number [address] (ABNORMAL) Hemogram (08/08/2017 4:51 AM EST) Analysis Performed At Patho logist Time Signature WBC 10.5 (H) 4.0 - 9.5 [facility] x10(3)/[facility] LABORATORY RBC 3.27 (L) 4.58 - [place] 5.54 [facility] x10(6)/[facility] LABORATORY Hemoglobin 9.3 (L) 13.7 - [facility] 16.5 gm/dL [facility] LABORATORY Hematocrit 30.3 (L) 40.5 - [facility] 48.5 % [facility] LABORATORY MCV 92.7 82.9 - [facility] 93.1 [facility] LABORATORY MCH 28.4 27.5 - [place] 32.1 pg [facility] LABORATORY MCHC 30.7 (L) 32.0 - [place] 35.7 gm/dL [facility] LABORATORY Platelets 252 145 - 357 [facility] x10(3)/[facility] LABORATORY RDWSD 54.6 (H) 36.0 - [place] 45.0 [facility] LABORATORY RDWCV 16.2 (H) 11.4 - [facility] RYAN 13.8 % [facility] LABORATORY MPV 9.1 7.6 - 12.9 [facility] LABORATORY nRBC % Auto 0.0 % [facility] LABORATORY nRBC Abs Auto 0.000 0.000 - [place] 0.000 [facility] x10(3)/[facility] LABORATORY Specimen Anatomical Collection Method Collection Time Receive d Time (Source) Location / / Volume Laterality Blood specimen 08/08/2017 4:51 AM 018 5:14 (specimen) EST AM EST Resulting Agency Comment Spec In Lab Yonathan Smith MD HEMATOLOGY ORDERABLES Performing Organization Address City/State/[place] [address] (ABNORMAL) Prothrombin Time (08/08/2017 [...] Organization Address City/State/[place] [address] (ABNORMAL) Basic Metabolic Panel (non-fasting) (08/08/2017 4:51 AM EST) athologist Signature Glucose Lvl 229 (H) 65 - 199 [facility] mg/dL [facility] LABORATORY [...] or in patients with acute kidney failure. http://Page365/DHnkdep http://Page365/DHMCnkf Specimen Anatomical Collection Method Collection Time Receive d Time (Source) Location / / Volume Laterality Blood specimen 08/08/2017 4:51 AM 018 5:14 (specimen) EST AM EST Resulting Agency Comment Spec In Lab Yonathan Smith MD CHEMISTRY ORDERABLES Performing Organization Address City/[facility]/ZIP Code Phon e Number [address] POCT Glucose (08/08/2017 4:20 AM EST) athologist Signature POC Glucose 193 65 - 199 [facility] LABORATORY Comment: Supplemental ranges: <140 mg/dL before meals <180 mg/dL all other times of the day Specimen Anatomical Collection Method Collection Time Receive d Time (Source) Location / / Volume Laterality Blood specimen 08/08/2017 4:20 AM 018 4:20 (specimen) EST AM EST Yonathan Smith MD POINT OF CARE TEST ORDERABLE S Performing Organization Address City/[facility]/ZIP Code Phon e Number [address] POCT Glucose (08/07/2017 11:11 PM EST) athologist Signature POC Glucose 124 65 - 199 [facility] mg/dL [facility] Comment: Supplemental ranges: <140 mg/dL before meals <180 mg/dL all other times of the day Specimen Anatomical Collection Method Collection Time Receive d Time (Source) Location / / Volume Laterality Blood specimen 08/07/2017 11:11 8 (specimen) PM EST 11:11 PM EST Yonathan Smith MD POINT OF CARE TEST ORDERABLE S Performing Organization Address City/[facility]/[place]IP [place] [address] (ABNORMAL) APTT (08/07/2017 10:18 [...] Organization Address City/State/[place] [address] POCT Glucose (08/07/2017 8:10 PM EST) athologist Signature POC Glucose 140 65 - 199 [facility] mg/dL [facility] Comment: Supplemental ranges: <140 mg/dL before meals <180 mg/dL all other times of the day Specimen Anatomical Collection Method Collection Time Receive d Time (Source) Location / / Volume Laterality Blood specimen 08/07/2017 8:10 PM 018 8:10 (specimen) EST PM EST Yonathan Smith MD POINT OF CARE TEST ORDERABLE S Performing Organization Address City/State/Z[place] [address] POCT Glucose (08/07/2017 5:27 PM EST) athologist Signature POC Glucose 187 65 - 199 [facility] Comment: Supplemental ranges: <140 mg/dL before meals <180 mg/dL all other times of the day Specimen Anatomical Collection Method Collection Time Receive d Time (Source) Location / / Volume Laterality Blood specimen 08/07/2017 5:27 PM 018 5:27 (specimen) EST PM EST Yonathan Smith MD POINT OF CARE TEST ORDERABLE S Performing Organization Address City/[facility]/ZIP [place] [address] POCT Glucose (08/07/2017 3:29 PM EST) athologist Signature POC Glucose 86 65 - 199 [facility] mg/dL [facility] Comment: Supplemental ranges: <140 mg/dL before meals <180 mg/dL all other times of the day Specimen Anatomical Collection Method Collection Time Receive d Time (Source) Location / / Volume Laterality Blood specimen 08/07/2017 3:29 PM 018 3:29 (specimen) EST PM EST Yonathan Smith MD POINT OF CARE TEST ORDERABLE S Performing Organization Address [facility] [place] [address] (ABNORMAL) APTT (08/07/2017 2:50 [...] Performing Organization Address City/[facility]/ZIP [facility] [place] [address] (ABNORMAL) POCT Glucose (08/07/2017 2:23 PM EST) athologist Signature POC Glucose 55 (L) 65 - 199 [facility] mg/dL [facility] Comment: Supplemental [...] Address City/State/ZIP Code Phon e Number [address] POCT Glucose (08/07/2017 12:08 PM EST) P athologist Signature POC Glucose 77 65 - 199 [facility] mg/dL [facility] Comment: Supplemental ranges: <140 mg/dL before meals <180 mg/dL all other times of the day Specimen Anatomical Collection Method Collection Time Receive d Time (Source) Location / / Volume Laterality Blood specimen 08/07/2017 12:08 8 (specimen) PM EST 12:08 PM EST Yonathan Smith MD POINT OF CARE TEST ORDERABLE S Performing Organization Address City/State/[place] [address] (ABNORMAL) Differential, Automated (08/07/2017 7:30 AM EST) Patholo gist Method Time Signature Neutrophils % 73.8 % [facility] Neutr Abs (ANC) 7.17 (H) 1.70 - [facility] 6.10 [facility] x10(3)/[facility] L LABORATORY Lymphocytes % 12.2 % [facility] Lymphocytes Abs 1.2 0.9 - 3.2 [facility] x10(3)/[facility] LABORATORY Monocytes % 9.0 % [facility] Monocyte Abs 0.9 0.3 - 0.9 [facility] x10(3)/[facility] LABORATORY Eosinophils % 3.9 % [facility] Eosinophils Abs 0.4 0.0 - 0.4 [facility] x10(3)/[facility] LABORATORY Basophils % 0.6 % [facility] Basophils Abs 0.1 0.0 - 0.1 [facility] x10(3)/[facility] LABORATORY Immature Gran % 0.50 [...] City/State/ZIP Code Phon e Number [place] [id number] (ABNORMAL) Hemogram (08/07/2017 7:30 AM EST) Analysis Performed At Patho logist Time Signature WBC 9.7 (H) 4.0 - 9.5 [facility] x10(3)/[facility] LABORATORY RBC 3.54 (L) 4.58 - [facility] 5.54 [facility] x10(6)/[facility] LABORATORY Hemoglobin 9.9 (L) 13.7 - [facility] 16.5 gm/dL [facility] Hematocrit 32.3 (L) 40.5 - [facility] 48.5 % [facility] MCV 91.2 82.9 - [facility] 93.1 [facility] LABORATORY MCH 28.0 27.5 - [facility] 32.1 pg [facility] MCHC 30.7 (L) 32.0 - [facility] 35.7 gm/dL [facility] Platelets 312 145 - 357 [facility] x10(3)/[facility] LABORATORY RDWSD 53.2 (H) 36.0 - [facility] 45.0 fL [facility] RDWCV 16.0 (H) 11.4 - [facility] 13.8 % [facility] MPV 8.9 7.6 - 12.9 [facility] LABORATORY nRBC % Auto 0.0 % [facility] nRBC Abs Auto 0.000 0.000 - [facility] 0.000 [facility] x10(3)/[facility] LABORATORY Specimen Anatomical Collection Method Collection Time Receive d Time (Source) Location / / Volume Laterality Blood specimen 08/07/2017 7:30 AM 018 7:45 (specimen) EST AM EST Resulting Agency Comment Spec In Lab Yonathan Smith MD HEMATOLOGY ORDERABLES Performing Organization Address City/State/[place] [address] (ABNORMAL) Basic Metabolic Panel (non-fasting) (08/07/2017 7:30 AM EST) athologist Signature Glucose Lvl 80 65 - 199 [facility] mg/dL [facility] [...] or in patients with acute kidney failure. http://Page365/DHnkdep http://Page365/[facility] PAWHUSKAnkf Specimen Anatomical Collection Method Collection Time Receive d Time (Source) Location / / Volume Laterality Blood specimen 08/07/2017 7:30 AM 018 7:45 (specimen) EST AM EST Resulting Agency Comment Spec In Lab Yonathan Smith MD CHEMISTRY ORDERABLES Performing Organization Address City/[facility]/ZIP [facility] Phon e Number [address] POCT Glucose (08/07/2017 7:27 AM EST) athologist Signature POC Glucose 81 65 - 199 [facility] mg/dL [facility] Comment: Supplemental ranges: <140 mg/dL before meals <180 mg/dL all other times of the day Specimen Anatomical Collection Method Collection Time Receive d Time (Source) Location / / Volume Laterality Blood specimen 08/07/2017 7:27 AM 018 7:27 (specimen) EST AM EST Yonathan Smith MD POINT OF CARE TEST ORDERABLE S Performing Organization Address City/[facility] Phon e Number [address] APTT (08/07/2017 7:04 AM [...] Organization Address City/State/[place] [address] (ABNORMAL) Prothrombin Time (08/07/2017 [...] Organization Address City/State/[place] [address] POCT Glucose (08/07/2017 4:03 AM EST) athologist Signature POC Glucose 93 65 - 199 [facility] mg/dL [facility] Comment: Supplemental ranges: <140 mg/dL before meals <180 mg/dL all other times of the day Specimen Anatomical Collection Method Collection Time Receive d Time (Source) Location / / Volume Laterality Blood specimen 08/07/2017 4:03 AM 018 4:03 (specimen) EST AM EST Yonathan Smith MD POINT OF CARE TEST ORDERABLE S Performing Organization Address City/State/ZIP [place] [address] POCT Glucose (08/07/2017 12:04 AM EST) athologist Signature POC Glucose 107 65 - 199 [facility] mg/dL [facility] Comment: Supplemental ranges: <140 mg/dL before meals <180 mg/dL all other times of the day Specimen Anatomical Collection Method Collection Time Receive d Time (Source) Location / / Volume Laterality Blood specimen 08/07/2017 12:04 8 (specimen) AM EST 12:04 AM EST Yonathan Smith MD POINT OF CARE TEST ORDERABLE S Performing Organization Address City/[facility]/ZIP Code Phon e Number [address] POCT Glucose (08/06/2017 7:56 PM EST) P athologist Signature POC Glucose 178 65 - 199 [facility] mg/dL [facility] Comment: Supplemental [...] Address City/State/ZIP Code Phon e Number [address] TcPO2 (08/06/2017 2:32 PM EST) Component Value Ref Test Analysis Performed At Patholo gist Range Method Time Signature VB Text Department: Vascular Surgery Lab VASCUBASE Report Patient: [id number] (GREGORY HOANG) CPT: [id number] ICD10: I99.8 Referring Physician: YONATHAN SMITH ?? [...]
Routine documented in this encounter Care Teams Inventory Representative Relationship Specialty Start Date End Date Lovely Vicente MD PCP - General 04/16/[address] [place] [address] [address] [place] [address] documented as of this encounter
--- OUTSIDE RECORDS SUMMARY | 2022-05-22 08:19 | XMS_ITS | Encounter Summary ---
:1945 Author Organization [facility] [place] [address] Care Team Providers Name Role Phone Lovely Vicente MD Primary Care Provider Encounter Details Date Type Department Care Team Description 08/09/2017 Clinical Support Same Day at [facility] Canceled (D-SCHED ERROR [facility] / CORRECT ION ) [place] [address] Social History Tobacco Use Types Packs/Day [...] Dolan MD [facility] [place] [address] [place], [place] [address] (Wo rk) 05/28/2022 Laboratory Appointment Lab 05/28/2022 Office Visit Cardiology Zulma Dolan MD [facility] [place] [address] Liz Poole PA [facility] [place] [address] 06/10/2022 Office Visit Dermatology Laura Scherer MD [facility] [address] [place], [place] [address] (Wo rk) documented as of this encounter Procedures Procedure Name Priority Date/Time Associated Diagnosis Comme nts CROP SCOUT 08/09/2017 12:00 AM Resul ts for this SCAN EST procedure are i n the results section. documented in this encounter Results SCAN DOC: CROP SCOUT (08/09/2017 12:00 AM EST) Narrative 08/09/2017 12:00 AM EST This result has an attachment that is no t available. Ordered by an unspecified provider. Scanning Provider MEDIA MGR SCAN EXT ORDR/RSLT documented in this encounter Visit Diagnoses Not on filedocumented in this encounter Care Teams Narrow Gauge Brakeman Relationship Specialty Start Date End Date Lovely Vicente MD PCP - General 04/16/[address] [place] [address] documented as of this encounter
--- OUTSIDE RECORDS SUMMARY | 2022-05-22 08:20 | XMS_ITS | Encounter Summary ---
:1945 Author Organization [facility] [place] [address] Care Team Providers Name Role Phone Lovely Vicente MD Primary Care Provider Encounter Details Date Type Department Care Team Description 08/02/2017 Telephone Pain Management at Angeles Bueno, [place] [address] Social History Tobacco Use Types Packs/Day [...] Management Center Preauthorization Request Patient: Don Fatima [id number] Fax received from [facility] requesting we obtain prior authorization for Lidocaine patches prescribed by Barbra Soares APRN. RX insurance plan: [employer] insurance telephone: [phone] Patient Diagnosis: right foot pain secondary to PVD and ischemia Previous medications attempted: Tylenol, Tramadol, Dilaudid The following action was taken after discussion with the customer service sales consultant: _x_ pharmacy informed Authorized dosage or amount: 5% on patch on for 12 hours, then remove for 12 hours. Angeles Rodrigez, RN documented in this encounter Plan of Treatment Upcoming Encounters Date Type Specialty Care Team Description 05/28/2022 Appointment Cardiology Zulma Dolan MD [facility] [place], [place] [address] (Wo rk) 05/28/2022 Laboratory Appointment Lab 05/28/2022 Office Visit Cardiology Zulma Dolan MD [facility] [place] [address] Liz Poole PA [facility] [place] [address] 06/10/2022 Office Visit Dermatology Laura Scherer MD [facility] [address] [place], [place] [address] (Wo rk) documented as of this encounter Visit Diagnoses Not on filedocumented in this encounter Care Teams Pressroom Supervisor Relationship Specialty Start Date End Date Lovely Vicente MD PCP - General 04/16/[address] [place] [address] documented as of this encounter
--- OUTSIDE RECORDS SUMMARY | 2022-05-22 08:20 | XMS_ITS | Encounter Summary ---
:1945 Author Organization [facility] [address] Care Team Providers Name Role Phone Lovely Vicente MD Primary Care Provider Reason for Visit Reason Comments Foot Ulcer WOUND CHECK Auth/Cert Specialty Diagnoses / Procedures Referred By Contact Refer red To Contact Diagnoses Critical lower limb ischemia CELLULITIS RT FOOT Procedures EMERGENCY Referral ID Status Reason Start Date Expiration Date Visits Requ ested Visits Authorized [id number] 1 1 Encounter Details Date Type Department Care Team Description 08/06/2017 [facility] ischemia [facility] [address] [place], [place] VASCULAR SURGERY [id number] [place] [address] [phone] Social History Tobacco Use Types Packs/Day Years [...] Smith MD - 08/06/2017 1:00 PM EST [facility] staff: 1. RIGHT leg [...] MD [facility] [address], [place] [address] (Wo ) 05/28/2022 Laboratory Appointment Lab 05/28/2022 Office Visit Cardiology Zulma Dolan MD [facility] [place] [address] [facility] [place] [address] 06/10/2022 Office Visit Dermatology Laura Scherer MD [facility] ER [address] [place], [place] [address] (Wo rk) documented as of this encounter Visit Diagnoses Diagnosis Critical lower limb ischemia Unspecified circulatory system disorder documented in this encounter Care Teams Weight Training Instructor Relationship Specialty Start Date End Date Lovely Vicente MD PCP - General 04/16/[address] [place], [place] [address] documented as of this encounter
--- OUTSIDE RECORDS SUMMARY | 2022-05-22 08:20 | XMS_ITS | Encounter Summary ---
:1945 Author Organization [facility] Address [facility] [place] [address] Care Team Providers Name Role Phone Lovely Vicente MD Primary Care Provider Encounter Details Date Type Department Care Team Description 07/29/2017 Transcribe Orders Laboratory Lovely Vicente, Coronary artery rupture; [facility] Medical Ischemic cardiomyopathy; [facility] [address] Atherosclerosis of lower [place] co ronary artery, angina presence unspecified, unspecified whether lower [place] or transplanted heart; [place], [place] [address] Essential hypertension, malignant; [address] [place], [place] 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, unspecified senior care insulin use status [phone] [id number] Social History Tobacco Use Types Packs/Day Years [...] Dolan MD [facility] er [address] [place], [place] [address] (Wo rk) 05/28/2022 Laboratory Appointment Lab 05/28/2022 Office Visit Cardiology Zulma Dolan MD [facility] [place] [address] Liz Poole PA [facility] [place] [address] 06/10/2022 Office Visit Dermatology Laura Scherer MD [facility] ER [address] [place], [place] [address] (Wo rk) Scheduled Orders Name Type Priority Associated Diagnoses Order S chedule Lab Use Only, Fax Lab Routine Coronary arter y rupture Expected: 07/29/2017 Request Ischemic cardiom yopathy (Approximate), Atherosclerosis of lower [place] Ex jose: 07/29/2018 coronary artery, angina presence unspecified, unspecified whether lower [place] or transplanted heart Essential hypertension, malignant documented as of this encounter Results Uric acid (08/04/2017 12:55 PM EST) P athologist Signature Uric Acid 7.1 3.5 - 8.5 [facility] Specimen Anatomical Collection Method Collection Time Receive d Time (Source) Location / / Volume Laterality Blood specimen 08/04/2017 12:55 8 1:01 (specimen) PM EST PM EST Resulting Agency Comment Spec In Lab Lovely Vicente MD CHEMISTRY ORDERABLES Performing Organization Address City/State/[place] [address] (ABNORMAL) Hemogram (08/04/2017 12:55 PM EST) Analysis Performed At Patho logist Time Signature WBC 15.8 (H) 4.0 - 9.5 [facility] x[facility](3[facility] LABORATORY RBC 3.48 (L) 4.58 - [facility] 5.54 [facility] x10(6)/[facility] LABORATORY Hemoglobin 9.9 (L) 13.7 - [facility] 16.5 gm/dL [facility] Hematocrit 31.4 (L) 40.5 - [facility]IS 48.5 % [facility] MCV 90.2 82.9 - [facility] 93.1 [facility] LABORATORY MCH 28.4 27.5 - [facility] RYAN 32.1 pg [facility] MCHC 31.5 (L) 32.0 - [facility] 35.7 gm/dL [facility] Platelets 310 145 - 357 [facility] x10(3)/[facility] LABORATORY RDWSD 51.8 (H) 36.0 - [facility] RY[facility] 45.0 [facility] LABORATORY RDWCV 15.8 (H) 11.4 - [facility] 13.8 % [facility] MPV 8.9 7.6 - 12.9 [facility] LABORATORY nRBC % Auto 0.0 % [facility] LABORATORY nRBC Abs Auto 0.000 0.000 - [facility] 0.000 [facility] x10(3)/[facility] LABORATORY Specimen Anatomical Collection Method Collection Time Receive d Time (Source) Location / / Volume Laterality Blood specimen 08/04/2017 12:55 8 1:01 (specimen) PM EST PM EST Resulting Agency Comment Spec In Lab Lovely Vicente MD HEMATOLOGY ORDERABLES Performing Organization Address City/State/ZIP Code Phon e Number [place] [id number] LAB[address] (ABNORMAL) Comprehensive metabolic panel (non-fasting) (08/04/2017 12:55 PM EST) P athologist Signature Glucose Lvl 208 (H) 65 - 199 [facility] mg/dL [facility] Comment: [...] or in patients with acute kidney failure. http://[employer]/DHnkdep http://[employer]/DHMCnkf Specimen Anatomical Collection Method Collection Time Receive d Time (Source) Location / / Volume Laterality Blood specimen 08/04/2017 12:55 8 1:01 (specimen) PM EST PM EST Resulting Agency Comment Spec In Lab Lovely Vicente MD CHEMISTRY ORDERABLES Performing Organization Address City/State/[place] [address] (ABNORMAL) Hemoglobin A1c (08/04/2017 [...] Avg Gluc See note mg/dL [facility] Comment: Estimated Average Glucose not appropriat [...] into estimated average glucose values. ??Diabetes Care 2008:31(8):4797-1150. Specimen Anatomical Collection Method Collection Time Receive d Time (Source) Location / / Volume Laterality Blood specimen 08/04/2017 12:55 8 1:01 (specimen) PM EST PM EST Resulting Agency Comment Spec In Lab Lovely Vicente MD CHEMISTRY ORDERABLES Performing Organization Address City/State/[place] [address] (ABNORMAL) Prothrombin Time (08/04/2017 [...] Organization Address City/State/[place] [address] documented in this encounter Visit Diagnoses Diagnosis Coronary artery rupture Acute myocardial infarction, unspecified site, episode of care unspecified Ischemic cardiomyopathy Other specified forms of chronic ischemi c heart disease Atherosclerosis of lower [place] coronary arter y, angina presence unspecified, unspecified whether lower [place] or transplanted heart Essential hypertension, malignant Diabetes mellitus due to underlying cond ition with diabetic nephropathy, unspecified senior care insulin use status documented in this encounter Care Teams Ammonia Operator Relationship Specialty Start Date End Date Lovely Vicente MD PCP - General 04/16/[address] [place] [address] documented as of this encounter
--- OUTSIDE RECORDS SUMMARY | 2022-05-22 08:20 | XMS_ITS | Encounter Summary ---
:1945 Author Organization [facility] [place] [address] Care Team Providers Name Role Phone Lovely Vicente MD Primary Care Provider Reason for Visit Auth/Cert Specialty Diagnoses / Procedures Referred By Contact Refer red To Contact Diagnoses Critical lower limb ischemia CELLULITIS RT FOOT Procedures EMERGENCY Referral ID Status Reason Start Date Expiration Date Visits Requ ested Visits Authorized [id number] 1 1 Encounter Details Date Type Department Care Team Description 08/09/2017 Surgery Main Operating Room Yonathan Smith AM PUTATION, Mary Hitchcock MD TRANSMETATARSAL ([facility] 12.71) [facility] DR Sidd[place] [address] [place] [address] [phone] Social History Tobacco Use Types Packs/Day Years [...] 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 [...] Dorsalis Pedis (Ankle) Artery ?132 ? 0.94 ??[place]cordia-Biphasic ? Posterior Tibial (Ankle) Artery ??154 ? 1.10 ??[place]-Biphasic ? Fourth Toe ? 67 ?0.48 ?? [...] For any problems or questions please call [phone] ZELDA Smith, environmental change analyst Nurse Clinician For issues on weeknights after 5pm and weekends please call [phone] and ask for the Vascular Fellow reconcilement clerk. General Instructions None Future Appointments and Orders Future Appointments Provider Department Dept Phone 08/26/2017 4:00 PM Aurelia Rivera PA Vascular Surgery at [place] [phone] 09/07/2017 3:00 PM LAB, THREE L Lab 3L [facility] [phone] 09/07/2017 4:00 PM Luz Prescott MD Endocrinology at [place] [phone] 09/09/2017 8:00 AM Barbra Soares APRN Pain Management at [place] [phone] Please bring a list of your current [...] For any problems or questions please call [phone] ZELDA Smith, environmental change analyst Nurse Clinician For issues on weeknights after 5pm and weekends please call [phone] and ask for the Vascular Fellow reconcilement clerk. documented in this encounter Medications at [...] as of this encounter Progress Notes Shirin oWlf RN - 08/16/2017 11:14 AM EST Office of Care Management Discharge Note Patient Destination: [facility] [address] [address] Transportation: with (at bedside) Time of Discharge: by 12 noon Level of Care: swing Patient Aware: yes Family Notified: yes Md to call report to: Yissel Quintero PERIODONTAL ASSISTANT already called RN to call report to: [phone] Shirin Wolf Office of Care Management Pager [phone] Shirin Wolf RN - 08/16/2017 10:50 AM EST [facility] has offered pt swing bed. Pt and accept bed. will transport via car. PERIODONTAL ASSISTANT Yissel Quintero aware; d/c paperwork will be completed by 12 noon. [facility] requests pt arrival by 1400 today; PERIODONTAL ASSISTANT, RN, and family aware. PERIODONTAL ASSISTANT called [facility] and was told that they prefer pt to arrive with wound vac dressing applied but clamped. PERIODONTAL ASSISTANT applied new wound vac dressing. RN has [facility] number to call report. PASSR completed; PERIODONTAL ASSISTANT paged to request provider signature in highlighted space. Indigo from [facility] notified via email that home wound vac now cancelled; [facility] has picked up from room and order cancelled. Packet started and provided to community health advocate. Medicare important message explained to patient, patient signed. Copy provided to patient and signature page to OCM for inclusion in pt EMR. L Radha Powers Yoselin - 08/16/2017 10:34 AM EST Office of Care Management/Propulsion Motor And Generator Repairer Patient Name: Gregory Hoang : 1945 Patient has been offered a swing bed at [facility]. The patient will be transported by private transportation. No MD to MD report necessary Please call Nursing Report to [phone], ask for director of transportation. Info to accompany patient: Narcotic Prescriptions Copies of Medication Administration Records and IV sheets for past 10 days. Plan: Propulsion Motor And Generator Repairer will be available to the patient and Acid Concentrator-RN and/or Tennis Ball Cover Cementer for further assistance. Patient will be discharged to: [place] [id number] Radha Powers, Propulsion Motor And Generator Repairer Mira Truong, VAMSI - 08/15/2017 10:05 PM EST [address] Flores to ask if he wanted to hold metoprolol dose. BP 95/58. OK to hold this dose Courtney Brito - 08/15/2017 3:26 PM EST Office of Care Management(OCM)/Propulsion Motor And Generator Repairer(RS)/ D/C Planning re : Patient is [...] status. 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 Await recommendations from PT. Covering pager #[phone]. 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 Physician Practice Administrator Kaitlin Saha, RN Pager #[phone] Payam Rosales - 08/13/2017 2:37 PM EST Crib Clerk Encounter Note Patient Name: Gregory Hoang : [id number] MR#: [id number] Admit Date: 08/06/2017 1:41 PM Hospital Day 7 days Narrative: Visited to introduce and assess acceptance of Crib Clerk services. Pt was awake, alert, oriented and in chair and family was there. Assessment:Patient coping positively with stresses of illness/hospitalization at this time. Pt says that he is hoping to get better and his family was there. Pt says that he has family care and supportand taking one day at time. Intervention and Outcome: Provided emotional support and encouraging presence. 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 A letter describing our affiliations was reviewed with them and theywere educated about their right to choose where referrals are placed. Patient requests referral to [facility] [place]. PHONE: [phone] FAX: [phone]. And Home NPWT (Negative Pressure Wound Therapy) aka wound vac device made available to pt. Serial # confirmed. Reviewed [facility] Proof of Delivery/Assignment of Benefits Statement(POD/AOB) Form w patient or authorized agent signing on behalf of patient. Copy of POD/AOB provided to pt and other copy faxed to [employer] @ fax# [phone] Expected date of discharge: 08/12/2017. 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 Heparin gtt continues to run. Pt [...] of : 1945 AGE 72 y.o. 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 Vascular resident reconcilement clerk and will forward result to the team prior to rounds. 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 [...] left blue toes with CTA showing R GENETIC ENGINEER pseudoaneurysm (now thrombosed) and occluded ATs [...] 2.5x80 5. Completion RLE angiogram 6. L GENETIC ENGINEER angiogram 7. 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 - L GENETIC ENGINEER angriogram demonstrated: High femoral bifurcation over the proximal half of the femoral head. L GENETIC ENGINEER access in the distal L GENETIC ENGINEER. - Closure device: Mynx Technical Procedure: [...] for a 45cm 5F Destination. V18 and [place] and QuickCross catheters were used to select [...] 5F. A stationed picture of the L GENETIC ENGINEER was performed as the patient was noted to have a very high bifurcation. Access appeared in the distal R GENETIC ENGINEER. Closure and sheath removal was performed [...] PM EST 1440 report called to 5 sagamore nurse Tessa RN documented in this encounter [...] sit/sit to supine -- Bed Mobility Goal, Cabell Level independent -- Bed Mobility Goal, Date [...] days -- Transfer Training Goal, Activity Type xov-es-qjpel/apcwn-rt-wun -- Transfer Train Goal, Cabell Level conditional independence -- Transfer Train Goal, [...] cabello within reach, Hourly rounding by RN/DIRECTOR OF FIELD SERVICE. Bed alarm / Chair alarm. Patient-specific fall [...] Operative Note Patient Name: Gregory Hoang : [id number] MR#: [id number] Case Date: 08/09/2017 Surgeon: Surgeon(s) and Role: [...] 2.5x80 5. Completion RLE angiogram 6. L GENETIC ENGINEER angiogram 7. Mynx closure Precautions/Restrictions: fall, [...] other (see comments) (or swing bed) Pager: [phone] BASSAM ELIAS, PT 08/14/2017 Inpatient Physical Therapy [...] to Achieve by discharge Gait Training Goal, Cabell Level conditional independence;set up required Gait Training [...] choices are: 1- [facility] PHONE: [phone] FAX: [phone] 2- [facility] [address] [place] [address] 3- [facility]) [address] [place] [address] I have discussed Medicare/Private Insurance [...] RS/CM on Wednesday to follow-up. Covering pager #[phone] for today. Plan of Care - Henrique [...] with additional findings of pseudoaneurysm on R GENETIC ENGINEER and bilateral anterior tibial artery occlusions. [...] an outpatient once discharged. Have patient call [phone] to set up an appointment. Follow-up: Dermatology will sign-off for now. Please do not hesitate to contact us if you have any questions orconcerns. Impression and Recommendations discussed with primary team on 08/13/2017. Karo Henderson MD Resident in Dermatology Section of Dermatology, Department of Surgery [facility] Pager [phone] Patient seen and evaluated with staff Recorder Helper Gravity Prospecting: Halima Cordero MD Section of Dermatology [facility] Level of Resident Supervision: Direct Supervision [...] Direct supervision Surveillance [continuous indirect monitoring]: tita iSnha Patient-specific fall prevention interventions for sensory deficits [...] Outcome: Ongoing (Interventions Implemented as Appropriate) 08/12/17 8866 Coping/Psychosocial Plan Of Care Reviewed With patient;spouse [...] 2.5x80 5. Completion RLE angiogram 6. L GENETIC ENGINEER angiogram 7. Mynx closure Active Non-Hospital [...] home with home health ([facility] PT&OT) Pager: [phone] YASIR TELLO OT 08/12/2017 Occupational Therapy Rehabilitation [...] 2.5x80 5. Completion RLE angiogram 6. L GENETIC ENGINEER angiogram 7. Mynx closure Past Medical [...] with 24/7 assistance and maximal services) Pager: [phone] NICHOLAS MORA, PT 08/12/2017 Physical Therapy Rehabilitation [...] sit/sit to supine -- Bed Mobility Goal, Cabell Level independent -- Bed Mobility Goal, Outcome Achieved -- goal ongoing Goal: Gait Training Goal Stand Alone Therapy Goal Outcome: Ongoing (Interventions Implemented as Appropriate) 08/11/17 1310 08/12/17 1510 Gait Training Goal Gait Training Goal, Date Established 08/11/17 -- Gait Training Goal, Time to Achieve 5 - 7 days -- Gait Training Goal, Cabell Level conditional independence -- Gait Training Goal, [...] days -- Transfer Training Goal, Activity Type gsq-hs-uteol/lswul-ps-kca -- Transfer Train Goal, Cabell Level conditional independence -- Transfer Training Goal, [...] Operative Note Patient Name: Gregory Hoang : [id number] MR#: [id number] Case Date: 08/11/2017 Surgeon: Surgeon(s) and Role: [...] 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 Completion RLE angiogram 6. L GENETIC ENGINEER angiogram 7. Mynx closure He is [...] Anticipated Discharge Disposition: inpatient rehabilitation facility Pager: [phone] LAWRENCE GONZALEZ, PT 08/11/2017 Physical Therapy Rehabilitation [...] to sit/sit to supine Bed Mobility Goal, Cabell Level independent Goal: Gait Training Goal Stand Alone Therapy Goal Outcome: Ongoing (Interventions Implemented as Appropriate) 08/11/17 1310 Gait Training Goal Gait Training Goal, Date Established 08/11/17 Gait Training Goal, Time to Achieve 5 - 7 days Gait Training Goal, Cabell Level conditional independence Gait Training Goal, Assist [...] 7 days Transfer Training Goal, Activity Type zky-oe-sqrpj/tfzyp-wh-dyr Transfer Train Goal, Cabell Level conditional independence Plan of David DelloAnnetta [...] cabello within reach, Hourly rounding by RN/DIRECTOR OF FIELD SERVICE. Bed alarm / Chair alarm. ? Patient-specific [...] Planning: on file Kisha Hoang [facility] [phone] Current Coping/Education/Information Needs: pt and spouse state [...] Health/Prescription Coverage: Primary Insurance: MEDICARE Secondary Insurance: [employer] [place] Prescription Coverage: See above Preferred Pharmacy: [id number] Other: N/A Primary Care Provider: Lovely Vicente MD [phone] Patient/Caregiver Goals of Treatment: Patient plans to [...] of care planning. Kaitlin Saha RN Pager: [phone] Plan of Care - Melba Jaramillo RN [...] Overview Goal: Plan of Care Review 08/08/17 9794 Coping/Psychosocial Plan Of Care Reviewed With patient [...] cabello within reach, Hourly rounding by RN/DIRECTOR OF FIELD SERVICE. Bed alarm / Chair alarm. Patient-specific fall prevention interventions for sensory deficits provided, if applicable: [X] Yes CPG GOAL OUTCOME EVALUATION: Goal: Fall Prevention-Safe Patient Handling Outcome: Ongoing (Interventions Implemented as Appropriate) 08/06/17 1700 08/06/17199908/07/17 4074 Positioning Body Position -- up in chair [...] at bedside and MD TEAM Carrying pager [phone] contacted (via Radio page) and notified of [...] Zulma Dolan MD [facility] [place], [place] [address] (Wo rk) 05/28/2022 Laboratory Appointment Lab 05/28/2022 Office Visit Cardiology Zulma Dolan MD [facility] [place] [address] Liz Poole PA [facility] [place] [address] 06/10/2022 Office Visit Dermatology Laura Scherer MD [facility] [address] OLOGY [place], [place] [address] (Wo rk) documented as of [...] section. TYPE AND SCREEN Routine 08/09/2017 1:10 ([facility]/SHANDA) AM EST BASIC METABOLIC PANEL Routine 08/09/2017 [...] 160 65 - 199 [place] mg/dL [facility] LABORATORY [...] Address City/State/ZIP [place] [address] [facility] [address] (ABNORMAL) Differential, Automated (08/16/2017 5:08 AM EST) [facility] Method Time Signature Neutrophils % 73.9 % [facility] LABORATORY Neutr Abs (ANC) 5.37 1.70 - [facility] 6.10 [facility] x10(3)/[facility] LABORATORY Lymphocytes % 10.1 % [facility] LABORATORY Lymphocytes Abs 0.7 (L) 0.9 - 3.2 [facility] x10(3)/[facility] LABORATORY Monocytes % 10.1 % [facility] LABORATORY Monocyte Abs 0.7 0.3 - 0.9 [facility] x10(3)/[facility] LABORATORY Eosinophils % 5.1 % [facility] LABORATORY Eosinophils Abs 0.4 0.0 - 0.4 [facility] x10(3)/[facility] LABORATORY Basophils % 0.4 % [facility] LABORATORY Basophils Abs 0.0 0.0 - 0.1 [facility] x10(3)/[facility] LABORATORY Immature Gran % 0.40 % GRACE [...] Melisa Gran Abs 0.03 0.00 - 0.04 x10(3)/[facility] LABORATORY Specimen Anatomical Collection Method Collection Time Receive d Time (Source) Location / / Volume Laterality Blood specimen 08/16/2017 5:08 AM 018 5:20 (specimen) EST AM EST Resulting Agency Comment Spec In Lab Yonathan Smith MD HEMATOLOGY ORDERABLES Performing Organization Address City/State/ZIP [place] [address] [facility] [address] (ABNORMAL) Hemogram (08/16/2017 5:08 AM EST) Analysis Performed At Patho logist Time Signature WBC 7.3 4.0 - 9.5 [facility] x10(3)/[facility] LABORATORY RBC 3.36 (L) 4.58 - [facility].54 [facility] x10(6)/[facility] LABORATORY Hemoglobin 9.7 (L) 13.7 - [facility] 16.5 gm/dL [facility] LABORATORY Hematocrit 30.3 (L) 40.5 - [facility] 48.5 % [facility] LABORATORY MCV 90.2 82.9 - [facility] 93.1 [facility] LABORATORY MCH 28.9 27.5 - [facility] 32.1 pg [facility] LABORATORY MCHC 32.0 32.0 - [facility] 35.[facility] gm/dL [facility] LABORATORY Platelets 282 145 - 357 [facility] x10(3)/[facility] LABORATORY RDWSD 53.9 (H) 36.0 - [facility] 45.0 [facility] LAB[facility]ORY RDWCV 16.5 (H) 11.4 - [facility] 13.8 % [facility] LABORATORY MPV 9.0 7.6 - 12.9 [facility] LABORATORY nRBC % Auto 0.0 % [facility] LABORATORY nRBC Abs Auto 0.000 0.000 - [facility] 0.000 [facility] x10(3)/[facility] LABORATORY Specimen Anatomical Collection Method Collection Time Receive d Time (Source) Location / / Volume Laterality Blood specimen 08/16/2017 5:08 AM 018 5:20 (specimen) EST AM EST Resulting Agency Comment Spec In Lab Yonathan Smith MD HEMATOLOGY ORDERABLES Performing Organization Address City/State/ZIP [place] [address] (ABNORMAL) Basic Metabolic Panel (non-fasting) (08/16/2017 5:08 AM EST) P athologist Signature Glucose Lvl 141 65 - 199 [facility] mg/dL [...] or in patients with acute kidney failure. http://Lanyon/DHnkdep http://Lanyon/DHMCnkf Specimen Anatomical Collection Method Collection Time Receive d Time (Source) Location / / Volume Laterality Blood specimen 08/16/2017 5:08 AM 018 5:20 (specimen) EST AM EST Resulting Agency Comment Spec In Lab Yonathan Smith MD CHEMISTRY ORDERABLES Performing Organization Address City/State/ZIP [place] [address] (ABNORMAL) Prothrombin Time (08/16/2017 [...] Smith MD HEMATOLOGY ORDERABLES Performing Organization Address City/[facility]/ZIP Code Phon e Number [address] POCT Glucose (08/16/2017 4:09 AM EST) athologist Signature POC Glucose 147 65 - 199 [facility] RYAN mg/dL [facility] LABORATORY [...] [facility]/ZIP Code Phon e Number [address] POCT Glucose (08/15/2017 11:56 PM EST) athologist Signature POC Glucose 176 65 - 199 [place]AN mg/dL [facility] LABORATORY [...] [facility]/ZIP Code Phon e Number [address] POCT Glucose (08/15/2017 8:05 PM EST) athologist Signature POC Glucose 136 65 - 199 [place]YAN mg/dL [facility] LABORATORY [...] Organization Address City/State/ZIP [place] [address] (ABNORMAL) POCT Glucose (08/15/2017 4:50 PM EST) athologist Signature POC Glucose 232 (H) 65 - 199 [place] mg/dL [facility] LABORATORY [...] Organization Address City/State/ZIP [place] [address] POCT Glucose (08/15/2017 12:04 PM EST) athologist Signature POC Glucose 135 65 - 199 [place] mg/dL [facility] LABORATORY [...] Organization Address City/State/ZIP [place] [address] POCT Glucose (08/15/2017 7:36 AM EST) athologist Signature POC Glucose 124 65 - 199 [place] ZHAORYAN mg/dL [facility] LABORATORY [...] Address City/State/ZIP [place] [address] (ABNORMAL) Differential, Automated (08/15/2017 6:22 AM EST) [facility] Method Time Signature Neutrophils % 76.1 % [facility] LABORATORY Neutr Abs (ANC) 6.62 (H) 1.70 - [facility] 6.10 [facility] x10(3)/[facility] LABORATORY Lymphocytes % 9.3 % [facility] LABORATORY Lymphocytes Abs 0.8 (L) 0.9 - 3.2 [facility] x10(3)/[facility] LABORATORY Monocytes % 9.4 % [facility] LABORATORY Monocyte Abs 0.8 0.3 - 0.9 [facility] x10(3)/[facility] LABORATORY Eosinophils % 4.0 % [facility] LABORATORY Eosinophils Abs 0.4 0.0 - 0.4 [facility] x10(3)/[facility] LABORATORY Basophils % 0.6 % [facility] LABORATORY Basophils Abs 0.0 0.0 - 0.1 [facility] x10(3)/[facility] LABORATORY Immature Gran % 0.60 % GRACE [...] Gran Abs 0.05 (H) 0.00 - 0.04 x10(3)/[facility] LABORATORY Specimen Anatomical Collection Method Collection Time Receive d Time (Source) Location / / Volume Laterality Blood specimen 08/15/2017 6:22 AM 018 6:33 (specimen) EST AM EST Resulting Agency Comment Spec In Lab Yonathan Smith MD HEMATOLOGY ORDERABLES Performing Organization Address City/[facility]/ZIP Code Phon e Number [address] (ABNORMAL) Hemogram (08/15/2017 6:22 AM EST) Analysis Performed At Patho logist Time Signature WBC 8.7 4.0 - 9.5 [facility] LABORATORY RBC 3.21 (L) 4.58 - [place] 5.54 [facility] x10(6)/[facility] LABORATORY Hemoglobin 9.1 (L) 13.7 - [facility] 16.5 gm/dL [facility] [facility] Hematocrit 29.0 (L) 40.5 - [facility] 48[facility] % [facility] MCV 90.3 82.9 - [facility] MCH 28.3 27.5 - [facility] 32.1 pg [facility] MCHC 31.4 (L) 32.0 - [facility] 35.7 gm/dL [facility]ORY Platelets 254 145 - 357 [facility] x10(3)/[facility] LABORATORY RDWSD 53.9 (H) 36.0 - [facility] 45.0 [facility] LAB[facility]ORY RDWCV 16.3 (H) 11.4 - [facility] RYAN 13.8 % [facility] LAB[facility]ATORY MPV 8.8 7.6 - 12.9 [facility] LABORATORY nRBC % Auto 0.0 % [facility] LABORATORY nRBC Abs Auto 0.000 0.000 - [facility] RYAN 0.000 [facility] x10(3)/[facility] LABORATORY Specimen Anatomical Collection Method Collection Time Receive d Time (Source) Location / / Volume Laterality Blood specimen 08/15/2017 6:22 AM 018 6:33 (specimen) EST AM EST Resulting Agency Comment Spec In Lab Yonathan Smith MD HEMATOLOGY ORDERABLES Performing Organization Address City/State/ZIP Code Phon e Number [facility] [place] [address] (ABNORMAL) Basic Metabolic Panel (non-fasting) (08/15/2017 6:22 AM EST) P athologist Signature Glucose Lvl 118 65 - 199 [facility] mg/dL [...] or in patients with acute kidney failure. [email or web address] Specimen Anatomical Collection Method Collection Time Receive d Time (Source) Location / / Volume Laterality Blood specimen 08/15/2017 6:22 AM 018 6:33 (specimen) EST AM EST Resulting Agency Comment Spec In Lab Yonathan Smith MD CHEMISTRY ORDERABLES Performing Organization Address City/State/ZIP Code Phon e Number [address] (ABNORMAL) Prothrombin Time (08/15/2017 [...] Address City/State/ZIP Code Phon e Number [address] POCT Glucose (08/15/2017 4:33 AM EST) athologist Signature POC Glucose 164 65 - 199 [facility] mg/dL [facility] [...] Address City/State/ZIP Code Phon e Number [address] POCT Glucose (08/15/2017 12:12 AM EST) athologist Signature POC Glucose 89 65 - 199 [facility] mg/dL [facility] LABORATORY [...] Address City/State/ZIP Code Phon e Number [address] (ABNORMAL) POCT Glucose (08/14/2017 8:07 PM EST) athologist Signature POC Glucose 204 (H) 65 - 199 [facility] mg/dL [facility] LABORATORY [...] [facility]/ZIP [place] [address] POCT Glucose (08/14/2017 5:11 PM EST) athologist Signature POC Glucose 174 65 - 199 [facility] mg/dL [facility] LABORATORY [...] Organization Address City/State/ZIP [place] [address] POCT Glucose (08/14/2017 12:10 PM EST) athologist Signature POC Glucose 141 65 - 199 [facility] mg/dL [facility] LABORATORY [...] Address City/State/ZIP Code Phon e Number [address] POCT Glucose (08/14/2017 8:07 AM EST) P athologist Signature POC Glucose 158 65 - 199 [facility] mg/dL [...] Address City/State/ZIP Code Phon e Number [address] (ABNORMAL) Differential, Automated (08/14/2017 4:52 AM EST) Patholo gist Method Time Signature Neutrophils % 78.6 % [facility] LABORATORY Neutr Abs (ANC) 7.70 (H) 1.70 - [facility] 6.10 [facility] x10(3[facility] LAB[facility]ATORY Lymphocytes % 7.8 % [facility] LABORATORY Lymphocytes Abs 0.8 (L) 0.9 - 3.2 [facility] x10(3)/[facility] LABORATORY Monocytes % 8.8 % [facility] LABORATORY Monocyte Abs 0.9 0.3 - 0.9 [facility] x10(3)/[facility] LABORATORY Eosinophils % 4.0 % [facility] LABORATORY Eosinophils Abs 0.4 0.0 - 0.4 [facility] x10(3)/[facility] LABORATORY Basophils % 0.5 % [facility] LABORATORY Basophils Abs 0.0 0.0 - 0.1 [facility] x10(3)/[facility] LABORATORY Immature Gran % 0.30 % [facility] [...] Melisa Gran Abs 0.03 0.00 - 0.04 x10(3)/[facility] LAB[facility]ORY Specimen Anatomical Collection Method Collection Time Receive d Time (Source) Location / / Volume Laterality Blood specimen 08/14/2017 4:52 AM 018 5:08 (specimen) EST AM EST Resulting Agency Comment Spec In Lab Yonathan Smith MD HEMATOLOGY ORDERABLES Performing Organization Address City/State/ZIP [place] [address] (ABNORMAL) Hemogram (08/14/2017 4:52 AM EST) Analysis Performed At Patho logist Time Signature WBC 9.8 (H) 4.0 - 9.5 [facility] x10(3)/[facility] LABORATORY RBC 3.32 (L) 4.58 - [facility] 5.54 [facility] x10(6)/[facility] LABORATORY Hemoglobin 9.5 (L) 13.7 - [facility] 16.[facility] gm/dL [facility] LABORATORY Hematocrit 30.3 (L) 40.5 - [facility] 48.5 % [facility] LABORATORY MCV 91.3 82.9 - [facility]ORY MCH 28.6 27.5 - [facility] 32.1 pg [facility] LABORATORY MCHC 31.4 (L) 32.0 - [facility] 35.7 gm/dL [facility] LABORATORY Platelets 263 145 - 357 [facility] x10(3)/[facility] LABORATORY RDWSD 54.8 (H) 36.0 - [facility] 45.0 [facility] LAB[facility]ORY RDWCV 16.5 (H) 11.4 - [facility] 13.8 % [facility] LABORATORY MPV 9.1 7.6 - 12.9 [facility] LABORATORY nRBC % Auto 0.0 % [facility] LABORATORY nRBC Abs Auto 0.000 0.000 - [facility] 0.000 [facility] x10(3)/[facility] LABORATORY Specimen Anatomical Collection Method Collection Time Receive d Time (Source) Location / / Volume Laterality Blood specimen 08/14/2017 4:52 AM 018 5:08 (specimen) EST AM EST Resulting Agency Comment Spec In Lab Yonathan Smith MD HEMATOLOGY ORDERABLES Performing Organization Address City/[facility]/ZIP [place] [address] (ABNORMAL) Prothrombin Time (08/14/2017 [...] Smith MD HEMATOLOGY ORDERABLES Performing Organization Address City/[facility]/ZIP [place] [address] (ABNORMAL) Basic Metabolic Panel (non-fasting) (08/14/2017 4:52 AM EST) athologist Signature Glucose Lvl 135 65 - 199 [facility] mg/dL [...] or in patients with acute kidney failure. [email or web address] Specimen Anatomical Collection Method Collection Time Receive d Time (Source) Location / / Volume Laterality Blood specimen 08/14/2017 4:52 AM 018 5:08 (specimen) EST AM EST Resulting Agency Comment Spec In Lab Yonathan Smith MD CHEMISTRY ORDERABLES Performing Organization Address City/[facility]/ZIP Code Phon e Number [address] POCT Glucose (08/14/2017 3:56 AM EST) P athologist Signature POC Glucose 135 65 - 199 [facility] mg/dL [...] [facility]/Z[place] [address] POCT Glucose (08/13/2017 11:13 PM EST) athologist Signature POC Glucose 118 65 - 199 [facility] mg/dL [facility] LABORATORY [...] Organization Address City/State/[place] [address] (ABNORMAL) POCT Glucose (08/13/2017 8:08 PM EST) athologist Signature POC Glucose 204 (H) 65 - 199 [facility] mg/dL [facility] LABORATORY [...] Organization Address City/State/ZIP [place] [address] POCT Glucose (08/13/2017 4:02 PM EST) athologist Signature POC Glucose 145 65 - 199 [facility] mg/dL [facility] LABORATORY [...] Organization Address City/State/Z[place] [address] POCT Glucose (08/13/2017 11:31 AM EST) athologist Signature POC Glucose 179 65 - 199 [facility] mg/dL [facility] LABORATORY [...] [facility]/[place] [address] (ABNORMAL) POCT Glucose (08/13/2017 10:16 AM EST) athologist Signature POC Glucose 211 (H) 65 - 199 [facility] mg/dL [facility] LABORATORY [...] [facility]/[place] [address] JULIAN, legs, multiple levels (08/13/2017 7:42 AM EST) Component Value Ref Test [facility] Method Time Signature VB Text Department: Vascular Surgery Lab VASCUBASE Report Patient: [id number] (GREGORY HOANG) CPT: 37908 ICD10: I99.8 Referring Physician: YONATHAN SMITH ?? Indications: s/p R 1,2,3 toe amps with red left foot, need n ew baseline Diabetes mellitus: yes ICD10 Diagnosis Code: I99.8 Findings: Right ?Pressure (mm Hg) ?? JULIAN ??Waveform ?TBI ?? Brachial Artery ?138 ? Dorsalis Pedis (Ankle) Arter y ?132 ? 0.94 ??[place]- Biphasic ? Posterior Tibial (Ankle) Art anila ??154 ? 1.10 ??[place]-Biphasic ? Fourth Toe ? 67 ? 0.48 [...] POC Glucose 156 65 - 199 [facility] mg/dL [...] Address City/State/ZIP [place] [address] (ABNORMAL) Differential, Automated (08/13/2017 5:33 AM EST) Patholo gist Method Time Signature Neutrophils % 77.8 % [facility] LABORATORY Neutr Abs (ANC) 7.83 (H) 1.70 - [facility] 6.10 [facility] x10(3)/[facility] LABORATORY Lymphocytes % 8.4 % [facility] LABORATORY Lymphocytes Abs 0.8 (L) 0.9 - 3.2 [facility] x10(3)/[facility] LABORATORY Monocytes % 8.3 % [facility] LABORATORY Monocyte Abs 0.8 0.3 - 0.9 [facility] x10(3)/[facility] LABORATORY Eosinophils % 4.6 % [facility] LABORATORY Eosinophils Abs 0.5 (H) 0.0 - 0.4 [facility] x10(3)/[facility] LABORATORY Basophils % 0.5 % [facility] LABORATORY Basophils Abs 0.0 0.0 - 0.1 [facility] x10(3)/[facility] [...] Melisa Gran Abs 0.04 0.00 - 0.04 x10(3)/[facility] LABORATORY Specimen Anatomical Collection Method Collection Time Receive d Time (Source) Location / / Volume Laterality Blood specimen 08/13/2017 5:33 AM 018 6:04 (specimen) EST AM EST Resulting Agency Comment Spec In Lab Yonathan Smith MD HEMATOLOGY ORDERABLES Performing Organization Address City/State/ZIP Code Phon e Number [place] [id number] HOSPITAL LABORATORY Drive (ABNORMAL) Hemogram (08/13/2017 5:33 AM EST) Analysis Performed At Patho logist Time Signature WBC 10.1 (H) 4.0 - 9.5 [facility] x10(3)/[facility] LABORATORY RBC 3.21 (L) 4.58 - [facility] 5.54 [facility] x10(6)/[facility] LABORATORY Hemoglobin 9.2 (L) 13.7 - [facility] 16.5 gm/dL [facility] LABORATORY Hematocrit 29.6 (L) 40.5 - [facility] 48.5 % [facility] LABORATORY MCV 92.2 82.9 - [facility] 93.[facility] LAB[facility]ORY MCH 28.7 27.5 - [facility] 32.1 pg [facility] LABORATORY MCHC 31.1 (L) 32.0 - [facility] 35[facility] gm/dL [facility] LABORATORY Platelets 263 145 - 357 [facility] x10(3)/[facility] LABORATORY RDWSD 54.8 (H) 36.0 - [facility] LAB[facility]ATORY RDWCV 16.4 (H) 11.4 - [facility] 13.8 % [facility] LABORATORY MPV 9.2 7.6 - 12.9 [facility] LABORATORY nRBC % Auto 0.0 % [facility] LABORATORY nRBC Abs Auto 0.000 0.000 - [facility] 0.000 [facility] x10(3)/[facility] LABORATORY Specimen Anatomical Collection Method Collection Time Receive d Time (Source) Location / / Volume Laterality Blood specimen 08/13/2017 5:33 AM 018 6:04 (specimen) EST AM EST Resulting Agency Comment Spec In Lab Yonathan Smith MD HEMATOLOGY ORDERABLES Performing Organization Address City/State/ZIP [place] [address] (ABNORMAL) Prothrombin Time (08/13/2017 [...] Address City/State/ZIP [place] [address] (ABNORMAL) Basic Metabolic Panel (non-fasting) (08/13/2017 5:33 AM EST) P athologist Signature Glucose Lvl 126 65 - 199 [facility] [...] or in patients with acute kidney failure. [email or web address] Specimen Anatomical Collection Method Collection Time Receive d Time (Source) Location / / Volume Laterality Blood specimen 08/13/2017 5:33 AM 018 6:04 (specimen) EST AM EST Resulting Agency Comment Spec In Lab Yonathan Smith MD CHEMISTRY ORDERABLES Performing Organization Address City/State/ZIP Code Phon e Number [address] POCT Glucose (08/13/2017 4:29 AM EST) athologist Signature POC Glucose 111 65 - 199 [facility] mg/dL [facility] LABORATORY [...] [facility]/ZIP [place] [address] POCT Glucose (08/12/2017 11:28 PM EST) athologist Signature POC Glucose 164 65 - 199 [facility] mg/dL [facility] LABORATORY [...] [facility]/ZIP Code Phon e Number [address] (ABNORMAL) POCT Glucose (08/12/2017 7:40 PM EST) athologist Signature POC Glucose 209 (H) 65 - 199 [facility] mg/dL [facility] LABORATORY [...] Address City/State/ZIP Code Phon e Number [address] POCT Glucose (08/12/2017 4:24 PM EST) athologist Signature POC Glucose 161 65 - 199 [facility] mg/dL [facility] LABORATORY [...] Address City/State/ZIP Code Phon e Number [address] POCT Glucose (08/12/2017 12:00 PM EST) athologist Signature POC Glucose 167 65 - 199 [facility] mg/dL [facility] LABORATORY [...] Address City/State/ZIP Code Phon e Number [address] POCT Glucose (08/12/2017 7:25 AM EST) athologist Signature POC Glucose 152 65 - 199 [facility] mg/dL [facility] LABORATORY [...] Address City/State/ZIP [place] [address] (ABNORMAL) Differential, Automated (08/12/2017 6:29 AM EST) [facility] Method Time Signature Neutrophils % 78.7 % [facility] LABORATORY Neutr Abs (ANC) 7.94 (H) 1.70 - [facility] 6.10 [facility] x10(3)/[facility] LABORATORY Lymphocytes % 8.8 % [facility] LABORATORY Lymphocytes Abs 0.9 0.9 - 3.2 [facility] x10(3)/[facility] LABORATORY Monocytes % 7.8 % [facility] LABORATORY Monocyte Abs 0.8 0.3 - 0.9 [facility] x10(3)/[facility] LABORATORY Eosinophils % 3.9 % [facility] LABORATORY Eosinophils Abs 0.4 0.0 - 0.4 [facility] x10(3)/[facility] LABORATORY Basophils % 0.3 % [facility] LABORATORY Basophils Abs 0.0 0.0 - 0.1 [facility] x10(3)/[facility] LABORATORY Immature Gran % 0.50 % [facility] [...] Gran Abs 0.05 (H) 0.00 - 0.04 x10(3)/[facility] LABORATORY Specimen Anatomical Collection Method Collection Time Receive d Time (Source) Location / / Volume Laterality Blood specimen 08/12/2017 6:29 AM 018 6:38 (specimen) EST AM EST Resulting Agency Comment Spec In Lab Yonathan Smith MD HEMATOLOGY ORDERABLES Performing Organization Address City/State/ZIP Code Phon e Number [address] (ABNORMAL) Hemogram (08/12/2017 6:29 AM EST) Analysis Performed At Patho logist Time Signature WBC 10.1 (H) 4.0 - 9.5 [facility] x[facility](3[facility] LABORATORY RBC 3.02 (L) 4.58 - [facility] 5.54 [facility] x10(6)/[facility] LABORATORY Hemoglobin 8.7 (L) 13.7 - [facility] 16.5 gm/dL [facility] LABORATORY Hematocrit 28.1 (L) 40.5 - [facility] 48.5 % [facility] LABORATORY MCV 93.0 82.9 - [facility] LAB[facility]ORY MCH 28.8 27.5 - [facility] 32.1 pg [facility] LABORATORY MCHC 31.0 (L) 32.0 - [facility] 35.7 gm/dL [facility] LABORATORY Platelets 223 145 - 357 [facility] x10(3)/[facility] LABORATORY RDWSD 56.1 (H) 36.0 - [facility] 45.0 [facility] LAB[facility]ATORY RDWCV 16.4 (H) 11.4 - [facility] 13.8 % [facility] LABORATORY MPV 9.0 7.6 - 12.9 [facility] LABORATORY nRBC % Auto 0.0 % [facility] LABORATORY nRBC Abs Auto 0.000 0.000 - [facility] 0.000 [facility] x10(3)/[facility] LABORATORY Specimen Anatomical Collection Method Collection Time Receive d Time (Source) Location / / Volume Laterality Blood specimen 08/12/2017 6:29 AM 018 6:38 (specimen) EST AM EST Resulting Agency Comment Spec In Lab Yonathan Smith MD HEMATOLOGY ORDERABLES Performing Organization Address City/State/Z[place] [address] (ABNORMAL) Prothrombin Time (08/12/2017 [...] Organization Address City/State/[place] [address] (ABNORMAL) Basic Metabolic Panel (non-fasting) (08/12/2017 6:29 AM EST) athologist Signature Glucose Lvl 151 65 - 199 [facility] mg/dL [...] or in patients with acute kidney failure. [email or web address] Specimen Anatomical Collection Method Collection Time Receive d Time (Source) Location / / Volume Laterality Blood specimen 08/12/2017 6:29 AM 018 6:38 (specimen) EST AM EST Resulting Agency Comment Spec In Lab Yonathan Smith MD CHEMISTRY ORDERABLES Performing Organization Address City/[facility]/ZIP Code Phon e Number [address] POCT Glucose (08/12/2017 4:08 AM EST) athologist Signature POC Glucose 181 65 - 199 [facility] mg/dL [facility] [...] Organization Address City/State/ZIP [place] [address] (ABNORMAL) POCT Glucose (08/12/2017 12:17 AM EST) P athologist Signature POC Glucose 221 (H) 65 - 199 [facility] mg/dL [facility] LABORATORY [...] [facility]/ZIP Code Phon e Number [address] (ABNORMAL) POCT Glucose (08/11/2017 8:52 PM EST) athologist Signature POC Glucose 221 (H) 65 - 199 [facility] mg/dL [facility] LABORATORY [...] [facility]/ZIP [place] [address] POCT Glucose (08/11/2017 5:59 PM EST) athologist Signature POC Glucose 169 65 - 199 [facility] mg/dL [facility] LABORATORY [...] [facility]/ZIP [place] [address] (ABNORMAL) POCT Glucose (08/11/2017 4:08 PM EST) athologist Signature POC Glucose 240 (H) 65 - 199 [facility] mg/dL [facility] LABORATORY [...] Address City/State/ZIP Code Phon e Number [address] POCT Glucose (08/11/2017 12:04 PM EST) athologist Signature POC Glucose 182 65 - 199 [facility] mg/dL [facility] LABORATORY [...] Address City/State/ZIP Code Phon e Number [address] POCT Glucose (08/11/2017 7:31 AM EST) athologist Signature POC Glucose 156 65 - 199 [facility] mg/dL [facility] LABORATORY [...] Address City/State/ZIP Code Phon e Number [address] (ABNORMAL) Differential, Automated (08/11/2017 6:16 AM EST) [facility] gist Method Time Signature Neutrophils % 83.7 % [facility] LABORATORY Neutr Abs (ANC) 10.76 (H) 1.70 - [facility] 6.10 [facility] x10(3)/[facility] LABORATORY Lymphocytes % 6.0 % [facility] LABORATORY Lymphocytes Abs 0.8 (L) 0.9 - 3.2 [facility] x10(3)/[facility] LABORATORY Monocytes % 7.5 % [facility] LABORATORY Monocyte Abs 1.0 (H) 0.3 - 0.9 [facility] x10(3)/[facility] LABORATORY Eosinophils % 2.0 % [facility] LABORATORY Eosinophils Abs 0.3 0.0 - 0.4 [facility] x10(3)/[facility] LABORATORY Basophils % 0.3 % [facility] LABORATORY Basophils Abs 0.0 0.0 - 0.1 [facility] x10(3)/[facility] LABORATORY Immature Gran % 0.50 % [facility] [...] Gran Abs 0.06 (H) 0.00 - 0.04 x10(3)/[facility] LABORATORY Specimen Anatomical Collection Method Collection Time Receive d Time (Source) Location / / Volume Laterality Blood specimen 08/11/2017 6:16 AM 018 6:24 (specimen) EST AM EST Resulting Agency Comment Spec In Lab Yonathan Smith MD HEMATOLOGY ORDERABLES Performing Organization Address City/State/ZIP [place] [address] (ABNORMAL) Hemogram (08/11/2017 6:16 AM EST) Analysis Performed At Patho logist Time Signature WBC 12.9 (H) 4.0 - 9.5 [facility] x10(3)/[facility] LABORATORY RBC 3.28 (L) 4.58 - [facility] 5.54 [facility] x10(6)/[facility] LABORATORY Hemoglobin 9.5 (L) 13.7 - [facility] 16.5 gm/dL [facility] LABORATORY Hematocrit 29.8 (L) 40.5 - [facility] 48.[facility] % [facility] LABORATORY MCV 90.9 82.9 - [facility] 93.1 [facility] LABORATORY MCH 29.0 27.5 - BARBARA RYAN 32.1 pg [facility] LABORATORY MCHC 31.9 (L) 32.0 - BARBARA DAVIS 35.7 gm/dL [facility] LABORATORY Platelets 236 145 - 357 [facility] x10(3)/[facility] Health LABORATORY RDWSD 53.5 (H) 36.0 - [facility] 45.0 [facility] LAB[facility] RDWCV 16.3 (H) 11.4 - [facility] 13.8 % [facility] LABORATORY MPV 8.8 7.6 - 12.9 [facility] LABORATORY nRBC % Auto 0.0 % [facility] LABORATORY nRBC Abs Auto 0.000 0.000 - [facility] RYAN 0.000 [facility] x10(3)/[facility] LABORATORY Specimen Anatomical Collection Method Collection Time Receive d Time (Source) Location / / Volume Laterality Blood specimen 08/11/2017 6:16 AM 018 6:24 (specimen) EST AM EST Resulting Agency Comment Spec In Lab Yonathan Smith MD HEMATOLOGY ORDERABLES Performing Organization Address City/State/ZIP [place] [address] (ABNORMAL) Prothrombin Time (08/11/2017 [...] Smith MD HEMATOLOGY ORDERABLES Performing Organization Address City/[facility]/ZIP [place] [address] Basic Metabolic Panel (non-fasting) (08/11/2017 6:16 AM EST) athologist Signature Glucose Lvl 139 65 - 199 [facility] mg/dL [...] or in patients with acute kidney failure. [email or web address] Specimen Anatomical Collection Method Collection Time Receive d Time (Source) Location / / Volume Laterality Blood specimen 08/11/2017 6:16 AM 018 6:24 (specimen) EST AM EST Resulting Agency Comment Spec In Lab Yonathan Smith MD CHEMISTRY ORDERABLES Performing Organization Address City/[facility]/ZIP Code Phon e Number [address] POCT Glucose (08/11/2017 4:07 AM EST) athologist Signature POC Glucose 162 65 - 199 [place] [place] mg/dL [facility] LABORATORY [...] Address City/State/ZIP Code Phon e Number [address] POCT Glucose (08/10/2017 11:59 PM EST) athologist Signature POC Glucose 166 65 - 199 [place] mg/dL [facility] LABORATORY [...] Organization Address City/State/ZIP [place] [address] POCT Glucose (08/10/2017 8:12 PM EST) athologist Signature POC Glucose 156 65 - 199 [facility] mg/dL [facility] LABORATORY [...] Organization Address City/State/[place] [address] (ABNORMAL) POCT Glucose (08/10/2017 4:42 PM EST) P athologist Signature POC Glucose 211 (H) 65 - 199 [facility] [...] City/State/ZIP Code Phon e Number [place] [id number] HOSPITAL LABORATORY Drive (ABNORMAL) Differential, Automated (08/10/2017 2:30 PM EST) Patholo gist Method Time Signature Neutrophils % 87.6 % [facility] LABORATORY Neutr Abs (ANC) 9.90 (H) 1.70 - [facility] 6.10 [facility] x10(3)/[facility] L LABORATORY Lymphocytes % 4.3 % [facility] LABORATORY Lymphocytes Abs 0.5 (L) 0.9 - 3.2 [facility] x10(3)/[facility] LABORATORY Monocytes % 6.0 % [facility] LABORATORY Monocyte Abs 0.7 0.3 - 0.9 [facility] x10(3)/[facility] LABORATORY Eosinophils % 1.1 % [facility] LABORATORY Eosinophils Abs 0.1 0.0 - 0.4 [facility] x10(3)/[facility] LABORATORY Basophils % 0.4 % [facility] LABORATORY Basophils Abs 0.0 0.0 - 0.1 [facility] x10(3)/[facility] LABORATORY Immature Gran % 0.60 % [facility] [...] Gran Abs 0.07 (H) 0.00 - 0.04 x10(3)/[facility] LABORATORY Specimen Anatomical Collection Method Collection Time Receive d Time (Source) Location / / Volume Laterality Blood specimen 08/10/2017 2:30 PM 018 2:48 (specimen) EST PM EST Resulting Agency Comment Spec In Lab Yonathan Smith MD HEMATOLOGY ORDERABLES Performing Organization Address City/State/ZIP [place] [address] (ABNORMAL) Hemogram (08/10/2017 2:30 PM EST) Analysis Performed At Patho logist Time Signature WBC 11.3 (H) 4.0 - 9.5 [facility] x10(3)/[facility] LABORATORY RBC 3.13 (L) 4.58 - [facility] 5.54 [facility] x10(6)/[facility] LABORATORY Hemoglobin 8.9 (L) 13.7 - [facility] 16.5 gm/dL [facility] LABORATORY Hematocrit 28.4 (L) 40.5 - [facility] 48.5 % [facility] LABORATORY MCV 90.7 82.9 - [facility] MCH 28.4 27.5 - [facility] 32.1 pg [facility] LABORATORY MCHC 31.3 (L) 32.0 - [facility] 35[facility] gm/dL [facility] LABORATORY Platelets 213 145 - 357 [facility] x10(3)/[facility] LABORATORY RDWSD 53.7 (H) 36.0 - [facility] 45.0 [facility] LABORATORY RDWCV 16.4 (H) 11.4 - [facility] 13.8 % [facility] LABORATORY MPV 8.9 7.6 - 12.9 [facility] LABORATORY nRBC % Auto 0.0 % [facility] LABORATORY nRBC Abs Auto 0.000 0.000 - [facility] 0.000 [facility] x10(3)/[facility] LABORATORY Specimen Anatomical Collection Method Collection Time Receive d Time (Source) Location / / Volume Laterality Blood specimen 08/10/2017 2:30 PM 018 2:48 (specimen) EST PM EST Resulting Agency Comment Spec In Lab Yonathan Smith MD HEMATOLOGY ORDERABLES Performing Organization Address City/State/ZIP Code Phon e Number [address] (ABNORMAL) POCT Glucose (08/10/2017 1:50 PM EST) athologist Signature POC Glucose 243 (H) 65 - 199 [facility]/dL [facility] LABORATORY [...] [facility]/ZIP Code Phon e Number [address] POCT Glucose (08/10/2017 11:21 AM EST) athologist Signature POC Glucose 156 65 - 199 [facility] mg/dL [facility] LABORATORY [...] [facility]/ZIP [place] [address] (ABNORMAL) Differential, Automated (08/10/2017 10:28 AM EST) [facility] Method Time Signature Neutrophils % 85.3 % [facility] LABORATORY Neutr Abs (ANC) 9.43 (H) 1.70 - [facility] 6.10 [facility] x10(3)/[facility] L LABORATORY Lymphocytes % 5.5 % [facility] LABORATORY Lymphocytes Abs 0.6 (L) 0.9 - 3.2 [facility] x10(3)/[facility] LABORATORY Monocytes % 5.9 % [facility] LABORATORY Monocyte Abs 0.6 0.3 - 0.9 [facility] x10(3)/[facility] LABORATORY Eosinophils % 2.1 % [facility] LABORATORY Eosinophils Abs 0.2 0.0 - 0.4 [facility] x10(3)/[facility] LABORATORY Basophils % 0.4 % [facility] LABORATORY Basophils Abs 0.0 0.0 - 0.1 [facility] x10(3)/[facility] LABORATORY Immature Gran % 0.80 % [facility] [...] Gran Abs 0.09 (H) 0.00 - 0.04 x10(3)/[facility] LABORATORY Specimen Anatomical Collection Method Collection Time Receive d Time (Source) Location / / Volume Laterality Blood specimen 08/10/2017 10:28 8 (specimen) AM EST 10:35 AM EST Resulting Agency Comment Spec In Lab Yonathan Smith MD HEMATOLOGY ORDERABLES Performing Organization Address City/State/ZIP [place] [address] (ABNORMAL) Hemogram (08/10/2017 10:28 AM EST) Analysis Performed At Patho logist Time Signature WBC 11.0 (H) 4.0 - 9.5 [facility] x10(3)/[facility] LABORATORY RBC 3.02 (L) 4.58 - [facility] 5.54 [facility] x10(6)/[facility] LABORATORY Hemoglobin 8.8 (L) 13.7 - [facility] 16.[facility] gm/dL [facility] LABORATORY Hematocrit 28.1 (L) 40.5 - [facility] 48.5 % [facility] LABORATORY MCV 93.0 82.9 - [facility] 93.1 [facility] MCH 29.1 27.5 - [facility] 32.1 pg [facility] MCHC 31.3 (L) 32.0 - [place] 35.7 gm/dL [facility] Platelets 207 145 - 357 [facility] x10(3)/[facility] LABORATORY RDWSD 55.3 (H) 36.0 - [place] [facility] 45.0 [facility] RDWCV 16.4 (H) 11.4 - [facility] 13.8 % [facility] MPV 9.0 7.6 - 12.9 [facility] LABORATORY nRBC % Auto 0.0 % [facility] nRBC Abs Auto 0.000 0.000 - [facility] 0.000 [facility] x10(3)/[facility] LABORATORY Specimen Anatomical Collection Method Collection Time Receive d Time (Source) Location / / Volume Laterality Blood specimen 08/10/2017 10:28 8 (specimen) AM EST 10:35 AM EST Resulting Agency Comment Spec In Lab Yonathan Smith MD HEMATOLOGY ORDERABLES Performing Organization Address City/State/ZIP [place] [address] VS Angiogram/intervention (vascular) (08/10/2017 [...] 2.5x80 5. Completion RLE angiogram 6. L GENETIC ENGINEER angiogram 7. 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 - L GENETIC ENGINEER angriogram demonstrated: High fe moral bifurcation over the proximal half of the femoral head. L GENETIC ENGINEER access in the distal L GENETIC ENGINEER. - Closure device: Mynx Technical Procedure: [...] for a 45cm 5F Destination. V18 and [place] a nd QuickCross catheters were used to [...] bifurcation. Access appeared in the distal R GENETIC ENGINEER. Closure and sheath removal was performed [...] 2.5x80 5. Completion RLE angiogram 6. L GENETIC ENGINEER angiogram 7. 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 - L GENETIC ENGINEER angriogram demonstrated: High fe moral bifurcation over the proximal half of the femoral head. L GENETIC ENGINEER access in the distal L GENETIC ENGINEER. - Closure device: Mynx Technical Procedure: [...] for a 45cm 5F Destination. V18 and [place] a nd QuickCross catheters were used to [...] bifurcation. Access appeared in the distal R GENETIC ENGINEER. Closure and sheath removal was performed [...] (ABNORMAL) Differential, Automated (08/10/2017 5:50 AM EST) [facility] gist Method Time Signature Neutrophils % 80.1 % [facility] LABORATORY Neutr Abs (ANC) 9.01 (H) 1.70 - [facility] 6.10 [facility] x10(3[facility] LAB[facility]ATORY Lymphocytes % 8.8 % [facility] LABORATORY Lymphocytes Abs 1.0 0.9 - 3.2 [facility] x10(3)/[facility] LABORATORY Monocytes % 8.3 % [facility] LABORATORY Monocyte Abs 0.9 0.3 - 0.9 [facility] x10(3)/[facility] LABORATORY Eosinophils % 2.0 % [facility] LABORATORY Eosinophils Abs 0.2 0.0 - 0.4 [facility] x10(3)/[facility] LABORATORY Basophils % 0.4 % [facility] LABORATORY Basophils Abs 0.0 0.0 - 0.1 [facility] x10(3)/[facility] [...] Gran Abs 0.05 (H) 0.00 - 0.04 x10(3)/[facility] LABORATORY Specimen Anatomical Collection Method Collection Time Receive d Time (Source) Location / / Volume Laterality Blood specimen 08/10/2017 5:50 AM 018 5:59 (specimen) EST AM EST Resulting Agency Comment Spec In Lab Yonathan Smith MD HEMATOLOGY ORDERABLES Performing Organization Address City/State/ZIP [place] [address] (ABNORMAL) Hemogram (08/10/2017 5:50 AM EST) Analysis Performed At Patho logist Time Signature WBC 11.3 (H) 4.0 - 9.5 [facility] x[facility](3[facility] LABORATORY RBC 3.15 (L) 4.58 - [facility] 5.54 [facility] x10(6)/[facility] LABORATORY Hemoglobin 8.9 (L) 13.7 - [facility] 16.[facility] gm/dL [facility] LABORATORY Hematocrit 29.0 (L) 40.5 - [facility] 48.5 % [facility] LABORATORY MCV 92.1 82.9 - [facility] 93.[facility] LAB[facility]ORY MCH 28.3 27.5 - [facility] 32.1 pg [facility] LABORATORY MCHC 30.7 (L) 32.0 - [facility] 35.7 gm/dL [facility] LABORATORY Platelets 231 145 - 357 [facility] x10(3)/[facility] LABORATORY RDWSD 53.9 (H) 36.0 - [facility] 45.0 [facility] LABORATORY RDWCV 16.2 (H) 11.4 - [facility] 13.8 % [facility] LABORATORY MPV 8.7 7.6 - 12.9 [facility] LABORATORY nRBC % Auto 0.0 % [facility] LABORATORY nRBC Abs Auto 0.000 0.000 - [facility] 0.000 [facility] x10(3)/[facility] LABORATORY Specimen Anatomical Collection Method Collection Time Receive d Time (Source) Location / / Volume Laterality Blood specimen 08/10/2017 5:50 AM 018 5:59 (specimen) EST AM EST Resulting Agency Comment Spec In Lab Yonathan Smith MD HEMATOLOGY ORDERABLES Performing Organization Address City/State/ZIP [place] [address] (ABNORMAL) Basic Metabolic Panel (non-fasting) (08/10/2017 5:50 AM EST) athologist Signature Glucose Lvl 135 65 - 199 [facility] mg/dL [...] or in patients with acute kidney failure. [email or web address] Specimen Anatomical Collection Method Collection Time Receive d Time (Source) Location / / Volume Laterality Blood specimen 08/10/2017 5:50 AM 018 5:59 (specimen) EST AM EST Resulting Agency Comment Spec In Lab Yonathan Smith MD CHEMISTRY ORDERABLES Performing Organization Address City/[facility]/ZIP [place] [address] (ABNORMAL) Prothrombin Time (08/10/2017 [...] Smith MD HEMATOLOGY ORDERABLES Performing Organization Address City/[facility]/ZIP [place] [address] (ABNORMAL) POCT Glucose (08/10/2017 4:01 AM EST) athologist Signature POC Glucose 206 (H) 65 - 199 [facility] [...] Medical Center/ZIP Code [place] [address] POCT Glucose (08/10/2017 2:01 AM EST) athologist Signature POC Glucose 188 65 - 199 [place] mg/dL [facility] LABORATORY [...] Organization Address City/State/ZIP [place] [address] (ABNORMAL) POCT Glucose (08/09/2017 11:42 PM EST) athologist Signature POC Glucose 283 (H) 65 - 199 [facility] mg/dL [facility] LABORATORY [...] Organization Address City/State/ZIP [place] [address] POCT Glucose (08/09/2017 8:55 PM EST) athologist Signature POC Glucose 182 65 - 199 [facility] mg/dL [facility] LABORATORY [...] Organization Address City/State/ZIP [place] [address] (ABNORMAL) APTT (08/09/2017 6:42 [...] Smith MD HEMATOLOGY ORDERABLES Performing Organization Address City/[facility]/ZIP [facility] Phon e Number [address] POCT Glucose (08/09/2017 4:41 PM EST) athologist Signature POC Glucose 195 65 - 199 [facility] mg/dL [facility] [...] [facility]/ZIP [place] [address] POCT Glucose (08/09/2017 12:29 PM EST) athologist Signature POC Glucose 140 65 - 199 [facility] mg/dL [facility] LABORATORY [...] Organization Address City/State/ZIP [place] [address] POCT Glucose (08/09/2017 9:59 AM EST) P athologist Signature POC Glucose 135 65 - 199 [facility] mg/dL [...] [facility]/ZIP [place] [address] Specimen to Pathology (08/09/2017 8:41 AM EST) Specimen Anatomical Collection Method Collection Time Receive d Time (Source) Location / / Volume Laterality AP Specimen 08/09/2017 8:41 AM 8 8:41 EST AM EST Narrative [facility] LABORAT ORY - 08/09/2017 8:41 AM EST Specimen requisition ordered. ??Separate Pathology report to follow Yonathan Smith MD PATHOLOGY/CYTOLOGY ORDERABLE S Performing Organization Address City/[facility]/ZIP [place] [address] Surgical Pathology Report (08/09/2017 8:40 AM EST) Component Value Ref Test Analysis Performed At Patholo gist Range Method Time Signature Surgical [id number] ? Location: [facility]; [facility]; A [facility] Report The signing pathologist has [...] Henrique Flower Verified: ??08/13/2017 ?Pathologist Performed at: ??-[facility] Dept. of Pathology, [place], [place] CLINICAL INFORMATION Specimen Submitted: A - [...] Address City/State/ZIP [place] [address] Anaerobic Culture (08/09/2017 8:30 AM EST) [facility] gist Method Time Signature Anaerobic No anaerobic [facility] Culture organisms [facility] LABORATORY Specimen Anatomical Collection Method Collection [...] Organization Address City/State/ZIP [place] [address] (ABNORMAL) Abscess/Wound Aspirate Culture (08/09/2017 8:30 AM EST) Patholo gist Method Time Signature Abscess/Wound Moderate mixed [place] Aspirate bacterial [place] Culture morphotypes [facility] normal LABORATORY cutaneous leroy (A) Gram Stain Rare White Blood Cells [facility] Few Gram Positive Cocci in pairs [place] () [facility] LABORATORY Organism Gram Positive [place] Cocci in pairs [place] () [facility] LABORATORY Specimen [...] - GENERAL ORDER ROBSON Performing Organization Address City/[facility]/ZIP Code Phon e Number [address] POCT Glucose (08/09/2017 4:28 AM EST) P athologist Signature POC Glucose 128 65 - 199 [facility] mg/dL [facility] [...] [facility]/ZIP [place] [address] ABORH Recheck Status (08/09/2017 1:10 AM EST) [facility] gist Method Time Signature ABORH Type [...] [facility]/ZIP [place] [address] Antibody screen (08/09/2017 1:10 AM EST) [facility] Method Time Signature Ab Screen Negative [facility] LABORATORY Expires at 08/12/2017 [facility] [id number] on: [facility] LABORATORY Specimen Anatomical Collection Method Collection Time Receive d Time (Source) Location / / Volume Laterality Blood specimen 08/09/2017 1:10 AM 018 1:35 (specimen) EST AM EST Resulting Agency Comment Spec In Lab Yonathan Smith MD BLOOD BANK ORDERABLES Performing Organization Address City/[facility]/ZIP [place] [address] ABO/Rh Typing (08/09/2017 1:10 [...] [facility]/ZIP [place] [address] (ABNORMAL) APTT (08/09/2017 1:10 [...] Address City/State/ZIP [place] [address] (ABNORMAL) Differential, Automated (08/09/2017 1:10 AM EST) [facility] gist Method Time Signature Neutrophils % 76.2 % [facility] LABORATORY Neutr Abs (ANC) 8.59 (H) 1.70 - [facility] 6.10 [facility] x10(3)/[facility] LABORATORY Lymphocytes % 11.0 % [facility] LABORATORY Lymphocytes Abs 1.2 0.9 - 3.2 [facility] x10(3)/[facility] LABORATORY Monocytes % 8.4 % [facility] LABORATORY Monocyte Abs 1.0 (H) 0.3 - 0.9 [facility] x10(3)/[facility] LABORATORY Eosinophils % 3.5 % [facility] LABORATORY Eosinophils Abs 0.4 0.0 - 0.4 [facility] x10(3)/[facility] LABORATORY Basophils % 0.5 % [facility] LABORATORY Basophils Abs 0.1 0.0 - 0.1 [facility] x10(3)/[facility] [...] Gran Abs 0.05 (H) 0.00 - 0.04 x10(3)/[facility] LABORATORY Specimen Anatomical Collection Method Collection Time Receive d Time (Source) Location / / Volume Laterality Blood specimen 08/09/2017 1:10 AM 018 1:19 (specimen) EST AM EST Resulting Agency Comment Spec In Lab Yonathan Smith MD HEMATOLOGY ORDERABLES Performing Organization Address City/State/ZIP [place] [address] (ABNORMAL) Hemogram (08/09/2017 1:10 AM EST) Analysis Performed At Patho logist Time Signature WBC 11.3 (H) 4.0 - 9.5 [facility] x[facility](3[facility] LABORATORY RBC 3.47 (L) 4.58 - [facility] 5.54 [facility] x10(6)/[facility] LABORATORY Hemoglobin 10.0 (L) 13.7 - [facility] 16.5 gm/dL [facility] LABORATORY Hematocrit 31.9 (L) 40.5 - [facility] 48.5 % [facility] LABORATORY MCV 91.9 82.9 - [facility] 93.1 [facility] LAB[facility]ORY MCH 28.8 27.5 - [facility] 32.1 pg [facility] LABORATORY MCHC 31.3 (L) 32.0 - [facility] 35.7 gm/dL [facility] LABORATORY Platelets 234 145 - 357 [facility] x10(3)/[facility] LABORATORY RDWSD 54.0 (H) 36.0 - [facility] 45.0 [facility] LAB[facility]ATORY RDWCV 16.2 (H) 11.4 - [facility] 13.8 % [facility] LABORATORY MPV 8.7 7.6 - 12.9 [facility] LABORATORY nRBC % Auto 0.0 % [facility] LABORATORY nRBC Abs Auto 0.000 0.000 - [facility] [facility] 0.000 [facility] x10(3)/[facility] LABORATORY Specimen Anatomical Collection Method Collection Time Receive d Time (Source) Location / / Volume Laterality Blood specimen 08/09/2017 1:10 AM 018 1:19 (specimen) EST AM EST Resulting Agency Comment Spec In Lab Yonathan Smith MD HEMATOLOGY ORDERABLES Performing Organization Address City/State/ZIP [place] [address] (ABNORMAL) Prothrombin Time (08/09/2017 [...] City/State/ZIP Code Phon e Number [place] [phone] HOSPITAL LABORATORY Drive (ABNORMAL) Basic Metabolic Panel (non-fasting) (08/09/2017 1:10 AM EST) athologist Signature Glucose Lvl 108 65 - 199 [facility] mg/dL [...] or in patients with acute kidney failure. [email or web address] [email or web address] Specimen Anatomical Collection Method Collection Time Receive d Time (Source) Location / / Volume Laterality Blood specimen 08/09/2017 1:10 AM 018 1:19 (specimen) EST AM EST Resulting Agency Comment Spec In Lab Yonathan Smith MD CHEMISTRY ORDERABLES Performing Organization Address City/[facility]/ZIP Code Phon e Number [address] POCT Glucose (08/09/2017 12:05 AM EST) athologist Signature POC Glucose 128 65 - 199 [facility]dL [facility] LABORATORY [...] [facility]/[place]IP [place] [address] (ABNORMAL) POCT Glucose (08/08/2017 7:36 PM EST) athologist Signature POC Glucose 215 (H) 65 - 199 [facility]/dL [facility] [...] [facility]/[place]IP [place] [address] (ABNORMAL) POCT Glucose (08/08/2017 6:23 PM EST) athologist Signature POC Glucose 216 (H) 65 - 199 [facility]/dL [facility] LABORATORY [...] Address [facility]/ZIP [place] [address] (ABNORMAL) APTT (08/08/2017 6:00 [...] Smith MD HEMATOLOGY ORDERABLES Performing Organization Address City/[facility]/ZIP [place] [address] POCT Glucose (08/08/2017 4:42 PM EST) athologist Signature POC Glucose 78 65 - 199 [facility] mg/dL [facility] LABORATORY [...] Organization Address City/State/[place] [address] (ABNORMAL) POCT Glucose (08/08/2017 4:01 PM EST) P athologist Signature POC Glucose 58 (L) 65 - 199 [facility] mg/dL [facility] LABORATORY [...] Organization Address City/State/[place]IP [place] [address] POCT Glucose (08/08/2017 11:51 AM EST) P athologist Signature POC Glucose 90 65 - 199 [facility] mg/dL [facility] LABORATORY [...] Address City/State/ZIP Code Phon e Number [address] (ABNORMAL) APTT (08/08/2017 10:27 [...] Smith MD HEMATOLOGY ORDERABLES Performing Organization Address City/[facility]/ZIP Code Phon e Number [address] POCT Glucose (08/08/2017 8:02 [...] [facility]/ZIP [place] [address] (ABNORMAL) APTT (08/08/2017 4:51 AM EST) athologist Signature PTT >160 25 - 35 [facility] (Critical) sec [facility] LABORATORY Comment: Called by: HOWARD, [...] Address City/State/ZIP Code [place] [address] (ABNORMAL) Differential, Automated (08/08/2017 4:51 AM EST) [facility] Method Time Signature Neutrophils % 77.9 % [facility] LABORATORY Neutr Abs (ANC) 8.17 (H) 1.70 - [facility] 6.10 [facility] x10(3[facility] LAB[facility]ORY Lymphocytes % 10.3 % [facility] LABORATORY Lymphocytes Abs 1.1 0.9 - 3.2 [facility] x10(3)/[facility] LABORATORY Monocytes % 7.0 % [facility] LABORATORY Monocyte Abs 0.7 0.3 - 0.9 [facility] x10(3)/[facility] LABORATORY Eosinophils % 3.6 % [facility] LABORATORY Eosinophils Abs 0.4 0.0 - 0.4 [facility] x10(3)/[facility] LABORATORY Basophils % 0.5 % [facility] LABORATORY Basophils Abs 0.0 0.0 - 0.1 [facility] x10(3)/[facility] LABORATORY Immature Gran % 0.70 % [facility] [...] Gran Abs 0.07 (H) 0.00 - 0.04 x10(3)/[facility] LABORATORY Specimen Anatomical Collection Method Collection Time Receive d Time (Source) Location / / Volume Laterality Blood specimen 08/08/2017 4:51 AM 018 5:14 (specimen) EST AM EST Resulting Agency Comment Spec In Lab Yonathan Smith MD HEMATOLOGY ORDERABLES Performing Organization Address City/State/ZIP [place] [address] (ABNORMAL) Hemogram (08/08/2017 4:51 AM EST) Analysis Performed At Patho logist Time Signature WBC 10.5 (H) 4.0 - 9.5 [facility] x[facility](3[facility] LABORATORY RBC 3.27 (L) 4.58 - [place] [facility] 5.54 [facility] x10(6)/[facility] LABORATORY Hemoglobin 9.3 (L) 13.7 - [facility] 16.5 gm/dL [facility] LABORATORY Hematocrit 30.3 (L) 40.5 - [facility] 48.5 % [facility] LABORATORY MCV 92.7 82.9 - [facility] 93.1 [facility] LABORATORY MCH 28.4 27.5 - [place] [facility] 32.1 pg [facility] LABORATORY MCHC 30.7 (L) 32.0 - [facility] 35.7 gm/dL [facility] LABORATORY Platelets 252 145 - 357 [facility] x10(3)/[facility] LABORATORY RDWSD 54.6 (H) 36.0 - [facility] 45.0 [facility] LABORATORY RDWCV 16.2 (H) 11.4 - [facility] 13.8 % [facility] LABORATORY MPV 9.1 7.6 - 12.9 [facility] LABORATORY nRBC % Auto 0.0 % [facility] LABORATORY nRBC Abs Auto 0.000 0.000 - [facility] 0.000 [facility] x10(3)/[facility] LABORATORY Specimen Anatomical Collection Method Collection Time Receive d Time (Source) Location / / Volume Laterality Blood specimen 08/08/2017 4:51 AM 018 5:14 (specimen) EST AM EST Resulting Agency Comment Spec In Lab Yonathan Smith MD HEMATOLOGY ORDERABLES Performing Organization Address City/State/ZIP Code Phon e Number [place] [phone] HOSPITAL LABORATORY Drive (ABNORMAL) Prothrombin Time (08/08/2017 [...] Address City/State/ZIP [place] [address] (ABNORMAL) Basic Metabolic Panel (non-fasting) (08/08/2017 4:51 AM EST) athologist Signature Glucose Lvl 229 (H) 65 - 199 [facility] [...] or in patients with acute kidney failure. [email or web address] [email or web address] Specimen Anatomical Collection Method Collection Time Receive d Time (Source) Location / / Volume Laterality Blood specimen 08/08/2017 4:51 AM 018 5:14 (specimen) EST AM EST Resulting Agency Comment Spec In Lab Yonathan Smith MD CHEMISTRY ORDERABLES Performing Organization Address City/[facility] Phon e Number [address] POCT Glucose (08/08/2017 4:20 AM EST) athologist Signature POC Glucose 193 65 - 199 [facility] mg/dL [facility] [...] [facility]/ZIP Code Phon e Number [address] POCT Glucose (08/07/2017 11:11 PM EST) P athologist Signature POC Glucose 124 65 - 199 [facility] mg/dL [facility] LABORATORY [...] [facility]/ZIP [place] [address] (ABNORMAL) APTT (08/07/2017 10:18 [...] Address [facility]/ZIP [place] [address] POCT Glucose (08/07/2017 8:10 PM EST) athologist Signature POC Glucose 140 65 - 199 [facility] mg/dL [facility] [...] [facility]/ZIP Code Phon e Number [address] POCT Glucose (08/07/2017 5:27 PM EST) athologist Signature POC Glucose 187 65 - 199 [facility] mg/dL [facility] LABORATORY [...] [facility]/ZIP Code Phon e Number [address] POCT Glucose (08/07/2017 3:29 PM EST) athologist Signature POC Glucose 86 65 - 199 [facility] mg/dL [facility] [...] Address [facility] [place] [address] (ABNORMAL) APTT (08/07/2017 2:50 [...] Smith MD HEMATOLOGY ORDERABLES Performing Organization Address City/[facility]/ZIP [facility] [place] [address] (ABNORMAL) POCT Glucose (08/07/2017 2:23 PM EST) athologist Signature POC Glucose 55 (L) 65 - 199 [facility] mg/dL [facility] [...] Address City/State/ZIP Code Phon e Number [address] POCT Glucose (08/07/2017 12:08 PM EST) P athologist Signature POC Glucose 77 65 - 199 [facility] mg/dL [...] Organization Address City/State/ZIP [place] [address] (ABNORMAL) Differential, Automated (08/07/2017 7:30 AM EST) Patholo gist Method Time Signature Neutrophils % 73.8 % [facility] LABORATORY Neutr Abs (ANC) 7.17 (H) 1.70 - [facility] 6.10 [facility] x10(3)/[facility] LABORATORY Lymphocytes % 12.2 % [facility] LABORATORY Lymphocytes Abs 1.2 0.9 - 3.2 [facility] x10(3)/[facility] LABORATORY Monocytes % 9.0 % [facility] LABORATORY Monocyte Abs 0.9 0.3 - 0.9 [facility] x10(3)/[facility] LABORATORY Eosinophils % 3.9 % [facility] LABORATORY Eosinophils Abs 0.4 0.0 - 0.4 [facility] x10(3)/[facility] LABORATORY Basophils % 0.6 % [facility] LABORATORY Basophils Abs 0.1 0.0 - 0.1 [facility] x10(3)/[facility] LABORATORY Immature Gran % 0.50 % [facility] [...] Gran Abs 0.05 (H) 0.00 - 0.04 x10(3)/[facility] LABORATORY Specimen Anatomical Collection Method Collection Time Receive d Time (Source) Location / / Volume Laterality Blood specimen 08/07/2017 7:30 AM 018 7:45 (specimen) EST AM EST Resulting Agency Comment Spec In Lab Yonathan Smith MD HEMATOLOGY ORDERABLES Performing Organization Address City/State/ZIP [place] [address] (ABNORMAL) Hemogram (08/07/2017 7:30 AM EST) Analysis Performed At Patho logist Time Signature WBC 9.7 (H) 4.0 - 9.5 [facility] x10(3)/[facility] LABORATORY RBC 3.54 (L) 4.58 - [facility] 5.54 [facility] x10(6)/[facility] LABORATORY Hemoglobin 9.9 (L) 13.7 - [facility] 16.5 gm/dL [facility] LABORATORY Hematocrit 32.3 (L) 40.5 - [facility] 48.5 % [facility] LABORATORY MCV 91.2 82.9 - [facility] 93.1 [facility] LABORATORY MCH 28.0 27.5 - [facility] 32.1 pg [facility] LABORATORY MCHC 30.7 (L) 32.0 - [facility] 35.7 gm/dL [facility] LABORATORY Platelets 312 145 - 357 [facility] x10(3)/[facility] LABORATORY RDWSD 53.2 (H) 36.0 - [facility] 45.0 [facility] RDWCV 16.0 (H) 11.4 - [facility] 13.8 % [facility] LABORATORY MPV 8.9 7.6 - 12.9 [facility] LABORATORY nRBC % Auto 0.0 % [facility] LABORATORY nRBC Abs Auto 0.000 0.000 - [facility] 0.000 [facility] x10(3)/[facility] LABORATORY Specimen Anatomical Collection Method Collection Time Receive d Time (Source) Location / / Volume Laterality Blood specimen 08/07/2017 7:30 AM 018 7:45 (specimen) EST AM EST Resulting Agency Comment Spec In Lab Yonathan Smith MD HEMATOLOGY ORDERABLES Performing Organization Address City/State/ZIP [place] [address] (ABNORMAL) Basic Metabolic Panel (non-fasting) (08/07/2017 7:30 AM EST) P athologist Signature Glucose Lvl 80 65 - 199 [facility] mg/dL [...] or in patients with acute kidney failure. [email or web address] [email or web address] Specimen Anatomical Collection Method Collection Time Receive d Time (Source) Location / / Volume Laterality Blood specimen 08/07/2017 7:30 AM 018 7:45 (specimen) EST AM EST Resulting Agency Comment Spec In Lab Yonathan Smith MD CHEMISTRY ORDERABLES Performing Organization Address City/[facility]/ZIP Code Phon e Number [address] POCT Glucose (08/07/2017 7:27 AM EST) athologist Signature POC Glucose 81 65 - 199 [facility] mg/dL [...] [facility]/ZIP Code Phon e Number [address] APTT (08/07/2017 7:04 AM [...] Smith MD HEMATOLOGY ORDERABLES Performing Organization Address City/[facility]/ZIP Code Phon e Number [address] (ABNORMAL) Prothrombin Time (08/07/2017 [...] Address City/State/ZIP Code Phon e Number [address] POCT Glucose (08/07/2017 4:03 AM EST) athologist Signature POC Glucose 93 65 - 199 [facility] mg/dL [facility] [...] Address City/State/ZIP Code Phon e Number [address] POCT Glucose (08/07/2017 12:04 AM EST) athologist Signature POC Glucose 107 65 - 199 [facility] mg/dL [facility] [...] Address City/State/ZIP Code Phon e Number [address] POCT Glucose (08/06/2017 7:56 PM EST) P athologist Signature POC Glucose 178 65 - 199 [facility] mg/dL [facility] LABORATORY [...] Address City/State/ZIP Code Phon e Number [address] [id number] (08/06/2017 2:32 PM EST) Component Value Ref Test Analysis Performed At Patholo gist Range Method Time Signature VB Text Department: Vascular Surgery Lab VASCUBASE Report Patient: [id number] (GREGORY HOANG) CPT: [id number] ICD10: I99.8 Referring Physician: YONATHAN SMITH ?? [...]
Routine documented in this encounter Care Teams Balance Bridge Inspector Relationship Specialty Start Date End Date Lovely Vicente MD PCP - General 04/16/[address] [place] [address] documented as of this encounter
--- OUTSIDE RECORDS SUMMARY | 2022-05-22 08:20 | XMS_ITS | Encounter Summary ---
:1945 Author Organization [facility] [place] [address] Care Team Providers Name Role Phone Lovely Vicente MD Primary Care Provider Reason for Visit Auth/Cert Specialty Diagnoses / Procedures Referred By Contact Refer red To Contact Diagnoses Critical lower limb ischemia CELLULITIS RT FOOT Procedures EMERGENCY Referral ID Status Reason Start Date Expiration Date Visits Requ ested Visits Authorized [id number] 1 1 Encounter Details Date Type Department Care Team Description 08/06/2017 Laboratory Appointment Lab at [facility] Ischemia of foot [facility] [place] [address] Social History Tobacco Use Types Packs/Day [...] [facility] [place] [address] [place] 0[address] (Wo rk) 05/28/2022 Laboratory Appointment Lab 05/28/2022 Office Visit Cardiology Zulma Dolan MD [facility] [place] [address] Liz Poole PA [facility] [place] [address] 06/10/2022 Office Visit Dermatology Laura Scherer MD [facility] ER DR [address]-DERMAT [facility] [place] [place] 0[address] (Wo rk) documented as of [...] Signature Prealbumin 19 (L) 20 - 40 [facility] mg/dL [facility] LABORATORY Comment: Prealbumin levels are [...] Organization Address City/State/[place] [address] (ABNORMAL) Basic Metabolic Panel (non-fasting) (08/06/2017 12:32 PM EST) P athologist Signature Glucose Lvl 92 65 - 199 [facility] mg/dL [facility] CENTER LABORATORY Estimated GFR 53 (L) >=60 [facility] LABORATORY Comment: The reported eGFR should be multiplied b y 1.2 for patients. The MDRD is not an appropriate measure o f renal function for patients with body mass extremes or in patients with acute kidney failure. [email or web address] [email or web address] Specimen Anatomical Collection Method Collection Time Receive d Time (Source) Location / / Volume Laterality Blood specimen 08/06/2017 12:32 8 1:15 (specimen) PM EST PM EST Resulting Agency Comment Spec In Lab Arik Clement MD CHEMISTRY ORDERABLES Performing Organization Address City/State/[place] [address] (ABNORMAL) Hemogram (08/06/2017 12:32 PM EST) Analysis Performed At Patho logist Time Signature WBC 11.8 (H) 4.0 - 9.5 [facility] x10(3)/[facility] LABORATORY RBC 3.49 (L) 4.58 - [facility] 5.54 [facility] x10(6)/[facility] LABORATORY Hemoglobin 9.9 (L) 13.7 - [facility] 16.5 gm/dL [facility] LABORATORY Hematocrit 32.0 (L) 40.5 - [facility] 48.5 % [facility] LABORATORY MCV 91.7 82.9 - [facility] 93.1 [facility] LABORATORY MCH 28.4 27.5 - [facility] 32.1 pg [facility] LABORATORY MCHC 30.9 (L) 32.0 - [facility] 35.7 gm/dL [facility] LABORATORY Platelets 326 145 - 357 [facility] x10(3)/[facility] LABORATORY RDWSD 53.4 (H) 36.0 - [facility] 45.0 [facility] LABORATORY RDWCV 16.0 (H) 11.4 - [place] 13.8 % [facility] LABORATORY MPV 9.1 7.6 - 12.9 [facility] LABORATORY nRBC % Auto 0.0 % [facility] LABORATORY nRBC Abs Auto 0.000 0.000 - [facility] 0.000 [facility] x10(3)/[facility] LABORATORY Specimen Anatomical Collection Method Collection Time Receive d Time (Source) Location / / Volume Laterality Blood specimen 08/06/2017 12:32 8 1:15 (specimen) PM EST PM EST Resulting Agency Comment Spec In Lab Arik Clement MD HEMATOLOGY ORDERABLES Performing Organization Address City/State/ZIP Code Phon e Number [place] [phone] HOSPITAL LABORATORY Drive documented in this encounter Visit Diagnoses Diagnosis Ischemia of foot Unspecified circulatory system disorder documented in this encounter Care Teams Soil Expert Relationship Specialty Start Date End Date Lovely Vicente MD PCP - General 04/16/[address] [place] [address] documented as of this encounter
--- OUTSIDE RECORDS SUMMARY | 2022-05-22 08:20 | XMS_ITS | Encounter Summary ---
:1945 Author [place] [address] Care Team Providers Name Role Phone Lovely Vicente MD Primary Care Provider Encounter Details Date Type Department Care Team Description 08/04/2017 Notes Only Pain Management at Barbra Bruno, STACIE [facility] [place] [address] [place] [address] [phone] (Wo rk) Social History Tobacco Use Types [...] bid) at this time. Barbra Soares, MSN, GROUP PROGRAM MANAGER-BC, [facility] documented in this encounter Plan of Treatment Upcoming Encounters Date Type Specialty Care Team Description 05/28/2022 Appointment Cardiology Zulma Dolan MD [facility] [place], [place] [address] (Wo rk) 05/28/2022 Laboratory Appointment Lab 05/28/2022 Office Visit Cardiology Zulma Dolan MD [facility] [place] [address] Liz Poole PA [facility] [place] [address] 06/10/2022 Office Visit Dermatology Laura Scherer MD [facility] DR [address]-DERMAT [place], [place] 0375 (Wo rk) documented as of this encounter Visit Diagnoses Not on filedocumented in this encounter Care Teams Cost Recorder Relationship Specialty Start Date End Date Lovely Vicente MD PCP - General 04/16/[address] [place] [address] documented as of this encounter
--- OUTSIDE RECORDS SUMMARY | 2022-05-22 08:20 | XMS_ITS | Encounter Summary ---
:1945 [place] [address] Care Team Providers Name Role Phone Lovely Vicente MD Primary Care Provider Encounter Details Date Type Department Care Team Description 08/04/2017 Notes Only Cardiac Surgery Makayla Wilson SYSTEM ADMINISTRATION MANAGER [facility] [place] [address] CARDIAC SURGERY [phone] [place], [place] 0[address] (Wo rk) Social History Tobacco [...] Dolan MD [facility] [place] [address] (Wo rk) 05/28/2022 Laboratory Appointment Lab 05/28/2022 Office Visit Cardiology Zulma Dolan MD [facility] [place] [address] Liz Poole PA [facility] [place] [address] 06/10/2022 Office Visit Dermatology Laura Scherer MD [facility] DR [address]JA [address] [place] [place] [address] (Wo rk) documented as of this encounter Visit Diagnoses Not on filedocumented in this encounter Care Teams Oil Transport Driver Relationship Specialty Start Date End Date Lovely Vicente MD PCP - General 04/16/[address] [place] [address] documented as of this encounter
--- OUTSIDE RECORDS SUMMARY | 2022-05-22 08:20 | XMS_ITS | Encounter Summary ---
:1945 [place] [address] Care Team Providers Name Role Phone Lovely Vicente MD Primary Care Provider Encounter Details Date Type Department Care Team Description 07/29/2017 Telephone Pain Aurelia Crawford MD [facility] [place] [address] PAIN CLINIC [phone] [place], [place] [address] (Wo rk) Social History Tobacco [...] Zulma Dolan MD [facility] [address] [place], [place] [address] (Wo rk) 05/28/2022 Laboratory Appointment Lab 05/28/2022 Office Visit Cardiology Zulma Dolan MD [facility] [place] [address] Liz Poole PA [facility] [place] [address] 06/10/2022 Office Visit Dermatology Laura Scherer MD [facility] [address] [place], [place] [address] (Wo rk) documented as of this encounter Visit Diagnoses Not on filedocumented in this encounter Care Teams Dairy Processing Equipment Operator Relationship Specialty Start Date End Date Lovely Vicente MD PCP - General 04/16/[address] [place] [address] [address] [place] [address] documented as of this encounter
--- OUTSIDE RECORDS SUMMARY | 2022-05-22 08:20 | XMS_ITS | Encounter Summary ---
:1945 Author Organization [facility] [place] [address] Care Team Providers Name Role Phone Lovely Vicente MD Primary Care Provider Reason for Visit Auth/Cert Specialty Diagnoses / Procedures Referred By Contact Refer red To Contact Diagnoses Critical lower limb ischemia CELLULITIS RT FOOT Procedures EMERGENCY Referral ID Status Reason Start Date Expiration Date Visits Requ ested Visits Authorized [id number] 1 1 Encounter Details Date Type Department Care Team Description 08/06/2017 Hospital Encounter [facility] [place] [address] Social History Tobacco Use Types Packs/Day [...] Dolan MD [facility] [place], [place] [address] (Wo rk) 05/28/2022 Laboratory Appointment Lab 05/28/2022 Office Visit Cardiology Zulma Dolan MD [facility] [place] [address] Liz Poole PA [facility] [place] [address] 06/10/2022 Office Visit Dermatology Laura Scherer MD [facility] DR [address] [place], [place] [address] (Wo rk) documented as of this encounter Visit Diagnoses Not on filedocumented in this encounter Care Teams Wind Turbine Electrical Engineer Relationship Specialty Start Date End Date Lovely Vicente MD PCP - General 04/16/[address] [place] [address] documented as of this encounter
--- OUTSIDE RECORDS SUMMARY | 2022-05-22 08:20 | XMS_ITS | Encounter Summary ---
:1945 Author Organization [place] [address] Care Team Providers Name Role Phone Lovely Vicente MD Primary Care Provider Encounter Details Date Type Department Care Team Description 08/04/2017 Orders Only Cardiac Surgery Makayla Wilson APRN [facility] [place] [address] CARDIAC SURGERY [phone] [place], [place] [address] (Wo rk) Social History Tobacco [...] Dolan MD [facility] er [place], [place] [address] (Wo rk) 05/28/2022 Laboratory Appointment Lab 05/28/2022 Office Visit Cardiology Zulma Dolan MD [facility] [place] [address] Liz Poole PA [facility] [place] [address] 06/10/2022 Office Visit Dermatology Laura Scherer MD [facility] ER DR [address] [place], [place] [address] (Wo rk) documented as of this encounter Visit Diagnoses Not on filedocumented in this encounter Care Teams Lens Maker Relationship Specialty Start Date End Date Lovely Vicente MD PCP - General 04/16/[address] [place] [address] documented as of this encounter
--- OUTSIDE RECORDS SUMMARY | 2022-05-22 08:20 | XMS_ITS | Encounter Summary ---
:1945 [place] [address] Care Team Providers Name Role Phone Lovely Vicente MD Primary Care Provider Encounter Details Date Type Department Care Team Description 08/03/2017 Hospital Encounter Radiology Library at [place], Tommy Mijares [facility] [place] [address] VASCULAR SURGERY [phone] [place], [place] [address] (Wo rk) Social History Tobacco [...] Dolan MD [facility] [address] [place], [place] [address] (Wo rk) 05/28/2022 Laboratory Appointment Lab 05/28/2022 Office Visit Cardiology Zulma Dolan MD [facility] [place] [address] Liz Poole PA [facility] [place] [address] 06/10/2022 Office Visit Dermatology Laura Scherer MD [facility] [address] [place], [place] [address] (Wo rk) documented as of [...] Time Received Time / Laterality Volume Narrative FORMERLY NAMED [facility] - 08/03/2017 6:03 PM EST This exam is for storage only and is aut o-finalizing. Arik Clement MD G FILM LIBRARY ORDERABLES Performing Organization Address City/State/ZIP Code Phon e Number [place], [place] documented in this encounter Visit Diagnoses Diagnosis Pain Generalized pain documented in this encounter Care Teams Retina Subspecialist Relationship Specialty Start Date End Date Lovely Vicente MD PCP - General 04/16/[address] [place] [address] documented as of this encounter
--- OUTSIDE RECORDS SUMMARY | 2022-05-22 08:20 | XMS_ITS | Encounter Summary ---
:1945 Author Organization [place] [address] Care Team Providers Name Role Phone Lovely Vicente MD Primary Care Provider Reason for Visit Auth/Cert Specialty Diagnoses / Procedures Referred By Contact Refer red To Contact Diagnoses Critical lower limb ischemia CELLULITIS RT FOOT Procedures EMERGENCY Referral ID Status Reason Start Date Expiration Date Visits Requ ested Visits Authorized [id number] 1 1 Encounter Details Date Type Department Care Team Description 08/06/2017 Clinical Support Same Day at [facility] Ischemia of foot [facility] [place] [address] Social History Tobacco Use Types Packs/Day [...] noother symptoms except severe right foot pain. [facility] clinic called as pt on route there [...] Dolan MD [facility] [address] [place], [place] [address] (Wo rk) 05/28/2022 Laboratory Appointment Lab 05/28/2022 Office Visit Cardiology Zulma Dolan [place] [facility] [place] [address] Liz Poole PA [facility] [place] [address] 06/10/2022 Office Visit Dermatology Laura Scherer MD [facility] [address] [place], [place] [address] (Wo rk) documented as of [...] 444 ms MUSE SYSTEM (Bezet) Calculated P [place] 44 degrees MUSE SYSTEM Calculated R Dorothy -31 degrees MUSE SYSTEM Calculated T Dorothy 106 degrees MUSE SYSTEM INTERPRETATION Normal sinus [...] disorder documented in this encounter Care Teams Judicial Assistant Relationship Specialty Start Date End Date Lovely Vicente MD PCP - General 04/16/[address] [place] [address] documented as of this encounter
--- OUTSIDE RECORDS SUMMARY | 2022-05-22 08:20 | XMS_ITS | Encounter Summary ---
:1945 Author Organization [place] [address] Care Team Providers Name Role Phone Lovely Vicente MD Primary Care Provider Encounter Details Date Type Department Care Team Description 08/06/2017 Orders Only Vascular Surgery at [facility] [place] APRN Ischemia of foot [facility] [place] [address] VASCULAR SURGERY [phone] [place], [place] [address] (Wo rk) Social History [...] Dolan MD [facility] [place], [place] [address] (Wo rk) 05/28/2022 Laboratory Appointment Lab 05/28/2022 Office Visit Cardiology Zulma Dolan MD [facility] [place] [address] Liz Poole PA [facility] [place] [address] 06/10/2022 Office Visit Dermatology Laura Scherer MD [facility] ER DR [address] [place], [place] [...] 444 ms MUSE SYSTEM (Bezet) Calculated P [place] 44 degrees MUSE SYSTEM Calculated R [place] -31 degrees MUSE SYSTEM Calculated T [place] 106 degrees MUSE SYSTEM INTERPRETATION Normal sinus [...] (L) 20 - 40 [place]INA RYAN mg/dL [facility] Comment: Prealbumin levels are generally [...] Organization Address City/State/ZIP [place] [address] (ABNORMAL) Basic Metabolic Panel (non-fasting) (08/06/2017 12:32 PM EST) athologist Signature Glucose Lvl 92 65 - 199 [facility] mg/dL [facility] Comment: Diabetes: >=200 [...] HOSPITAL LABORATORY Estimated GFR 53 (L) >=60 [facility] Comment: The reported eGFR should be multiplied b y 1.2 for patients. The MDRD is not an appropriate measure o f renal function for patients with body mass extremes or in patients with acute kidney failure. http://iWatt/DHnkdep http://iWatt/DHMCnkf Specimen Anatomical Collection Method Collection Time Receive d Time (Source) Location / / Volume Laterality Blood specimen 08/06/2017 12:32 8 1:15 (specimen) PM EST PM EST Resulting Agency Comment Spec In Lab Arik Clement MD CHEMISTRY ORDERABLES Performing Organization Address City/State/ZIP [place] [address] (ABNORMAL) Hemogram (08/06/2017 12:32 PM EST) Analysis Performed At Patho logist Time Signature WBC 11.8 (H) 4.0 - 9.5 [facility] x10(3)/[facility] LABORATORY RBC 3.49 (L) 4.58 - [facility] 5.54 [facility] x10(6)/[facility] LABORATORY Hemoglobin 9.9 (L) 13.7 - [facility] 16.5 gm/dL [facility] Hematocrit 32.0 (L) 40.5 - [facility] 48.5 % [facility] MCV 91.7 82.9 - [facility] 93.1 [facility] LABORATORY MCH 28.4 27.5 - [facility] 32.1 pg [facility] MCHC 30.9 (L) 32.0 - [facility] 35.7 gm/dL [facility] Platelets 326 145 - 357 [facility] x10(3)/[facility] LABORATORY RDWSD 53.4 (H) 36.0 - [facility] 45.0 [facility] LABORATORY RDWCV 16.0 (H) 11.4 - [facility] 13.8 % [facility] MPV 9.1 7.6 - 12.9 [facility] LABORATORY nRBC % Auto 0.0 % [facility] LABORATORY nRBC Abs Auto 0.000 0.000 - [facility] 0.000 [facility] x10(3)/[facility] LABORATORY Specimen Anatomical Collection Method Collection Time Receive d Time (Source) Location / / Volume Laterality Blood specimen 08/06/2017 12:32 8 1:15 (specimen) PM EST PM EST Resulting Agency Comment Spec In Lab Arik Clement MD HEMATOLOGY ORDERABLES Performing Organization Address City/State/ZIP [place] [address] documented in this encounter Visit Diagnoses Diagnosis Ischemia of foot Unspecified circulatory system disorder documented in this encounter Care Teams Spinner Iron Relationship Specialty Start Date End Date Lovely Vicente MD PCP - General 04/16/[address] [place] [address] documented as of this encounter
--- OUTSIDE RECORDS SUMMARY | 2022-05-22 08:20 | XMS_ITS | Encounter Summary ---
:1945 Author Organization [facility] Address [facility] [place] [address] Care Team Providers Name Role Phone Lovely Vicente MD Primary Care Provider Reason for Visit Auth/Cert Specialty Diagnoses / Procedures Referred By Contact Refer red To Contact Diagnoses Critical lower limb ischemia CELLULITIS RT FOOT Procedures EMERGENCY Referral ID Status Reason Start Date Expiration Date Visits Requ ested Visits Authorized [id number] 1 1 Encounter Details Date Type Department Care Team Description 08/04/2017 Laboratory Lab 3L [place] Cardiomyopathy, unspecified type; Appointment [facility] Systolic congestive heart failure, unspecified congestive heart failure chronicity; Hospital Coronary artery rupture; [facility] Ischemic cardiomyopathy; Drive Atherosclerosis of ione co ronary artery, angina presence unspecified, unspecified whether ione or transplanted heart; [place], [place] Essential hyper tension, malignant; [id number] 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, unspecified manager long term care insulin use status [phone] Social History Tobacco Use Types Packs/Day Years [...] [facility] [address] [place] [address] (Wo rk) 05/28/2022 Laboratory Appointment Lab 05/28/2022 Office Visit Cardiology Zulma Dolan MD [facility] [place] [address] Liz Poole PA [facility] [place] [address] 06/10/2022 Office Visit Dermatology Laura Scherer MD [facility] ER DR [address] [place], [place] [address] (Wo rk) documented as of this encounter Procedures Procedure Name Priority Date/Time Associated Diagnosis Comme nts HEMOGRAM Routine 08/04/2017 12:55 Essential Results for this PM EST hypertension, procedure are in malignant the results section. PROTHROMBIN TIME Routine 08/04/2017 12:55 Coronary artery Resu lts for this PM EST rupture procedure are in Ischemic the results cardiomyopathy section. Atherosclerosis of ione coronary artery, angina presence unspecified, unspecified whether ione or transplanted heart URIC ACID Routine 08/04/2017 [...] Signature Uric Acid 7.1 3.5 - 8.5 [facility] mg/dL [facility] Specimen Anatomical Collection Method Collection Time Receive d Time (Source) Location / / Volume Laterality Blood specimen 08/04/2017 12:55 8 1:01 (specimen) PM EST PM EST Resulting Agency Comment Spec In Lab Lovely Vicente MD CHEMISTRY ORDERABLES Performing Organization Address City/[facility]/[place] [address] (ABNORMAL) Hemogram (08/04/2017 12:55 PM EST) Analysis Performed At Patho logist Time Signature WBC 15.8 (H) 4.0 - 9.5 [facility] x10(3)/[facility] LABORATORY RBC 3.48 (L) 4.58 - [facility] RYAN 5.54 [facility] x10(6)/[facility] LABORATORY Hemoglobin 9.9 (L) 13.7 - [facility] 16.5 gm/dL [facility] Hematocrit 31.4 (L) 40.5 - [facility] 48.5 % [facility] MCV 90.2 82.9 - [facility] 93.1 [facility] LABORATORY MCH 28.4 27.5 - [facility] 32.1 pg [facility] MCHC 31.5 (L) 32.0 - [facility] 35.7 gm/dL [facility] Platelets 310 145 - 357 [facility] x10(3)/[facility] LABORATORY RDWSD 51.8 (H) 36.0 - [facility] 45.0 [facility] LABORATORY RDWCV 15.8 (H) 11.4 - [facility] RYAN 13.8 % [facility] MPV 8.9 7.6 - 12.9 [facility] LABORATORY nRBC % Auto 0.0 % [facility] LAB[facility] nRBC Abs Auto 0.000 0.000 - [facility] 0.000 [facility] x10(3)/[facility] LABORATORY Specimen Anatomical Collection Method Collection Time Receive d Time (Source) Location / / Volume Laterality Blood specimen 08/04/2017 12:55 8 1:01 (specimen) PM EST PM EST Resulting Agency Comment Spec In Lab Lovely Vicente MD HEMATOLOGY ORDERABLES Performing Organization Address City/State/[place] [address] (ABNORMAL) Comprehensive metabolic panel (non-fasting) (08/04/2017 12:55 PM EST) athologist Signature Glucose Lvl 208 (H) 65 - 199 [facility] mg/dL [facility] Comment: Diabetes: >=200 mg/dL plus [...] Total Protein 6.9 6.1 - 8.0 gm/dL [facility] Albumin 3.4 3.2 - 5.2 [...] or in patients with acute kidney failure. http://SportStream/DHnkdep http://SportStream/DHMCnkf Specimen Anatomical Collection Method Collection Time Receive d Time (Source) Location / / Volume Laterality Blood specimen 08/04/2017 12:55 8 1:01 (specimen) PM EST PM EST Resulting Agency Comment Spec In Lab Lovely Vicente MD CHEMISTRY ORDERABLES Performing Organization Address City/State/ZIP Code Phon e Number [place] [id number] [address] (ABNORMAL) Hemoglobin A1c (08/04/2017 12:55 PM EST) Analysis Performed At Patho logist Time Signature Hemoglobin A1C 6.2 (H) 4.3 - 5.6 [facility] [...] with hemoglobinopathies. Additional resources are available on [facility] website. Macario HAMMOND, Ruthann J, Deysi R, et al. ??Tr anslating the A1C assay into estimated average glucose values. ??Diabetes Care 2008:31(8):2567-8987. Specimen Anatomical Collection Method Collection Time Receive d Time (Source) Location / / Volume Laterality Blood specimen 08/04/2017 12:55 8 1:01 (specimen) PM EST PM EST Resulting Agency Comment Spec In Lab Lovely Vicente MD CHEMISTRY ORDERABLES Performing Organization Address [facility] [place] [address] (ABNORMAL) Prothrombin Time (08/04/2017 [...] Vicente MD HEMATOLOGY ORDERABLES Performing Organization Address [facility] [place] [address] (ABNORMAL) pro-Brain Natriuretic Peptide (08/04/2017 12:55 PM EST) P athologist Signature ProBNP 3,133 (H) <=125 [facility] pg/mL [facility] Specimen Anatomical Collection Method Collection Time Receive d Time (Source) Location / / Volume Laterality Blood specimen 08/04/2017 12:55 8 1:01 (specimen) PM EST PM EST Resulting Agency Comment Spec In Lab Danette Maxwell APRN CHEMISTRY ORDERABLES Performing Organization Address City/State/[place] [address] documented in this encounter Visit Diagnoses Diagnosis Cardiomyopathy, unspecified type Systolic congestive heart failure, unspe cified congestive heart failure chronicity Coronary artery rupture Acute myocardial infarction, unspecified site, episode of care unspecified Ischemic cardiomyopathy Other specified forms of chronic ischemi c heart disease Atherosclerosis of ione coronary arter y, angina presence unspecified, unspecified whether ione or transplanted heart Essential hypertension, malignant Diabetes mellitus due to underlying cond ition with diabetic nephropathy, unspecified manager long term care insulin use status documented in this encounter Care Teams Videotape Sales Representative Relationship Specialty Start Date End Date Lovely Vicente MD PCP - General 04/16/[address] [place] [address] documented as of this encounter
--- OUTSIDE RECORDS SUMMARY | 2022-05-22 08:20 | XMS_ITS | Encounter Summary ---
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 Patient [...] SETUP performed by Manny Mcknight MD at [facility] MAIN OR ??? PRO CABG, ARTERIAL, SINGLE N/A 07/07/2017 @CABG, USING ARTERIAL GRAFT;SINGLE ARTERIAL GRAFT (WRVU 33.75) performed by Yuan Retana MD at [facility] MAIN OR ??? PRO CABG, ARTERY-VEIN, TWO N/A 07/07/2017 @CABG, TWO VENOUS GRAFTS & ARTERIAL GRAFT (WRVU 7.93) performed by Yuan Retana MD at [facility] MAIN OR ??? PRO COLONOSCOPY, REMFlash MOCK, SNARE 01/16/2014 COLONOSCOPY, POLYPECTOMY, REMOVAL LESION BY SNARE performed by Nohemi Jaimes MD at [facility] ENDOSCOPY ??? PRO ENDOSCOPY W/VIDEO-ASST VEIN HARVEST, CABG Right 07/07/2017 ENDOSCOPIC HARVEST VEIN(S) FOR CABG (WRVU 0.31) performed by Yuan Retana MD at [facility] MAIN OR ??? 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 Hank Zhang Vascular Surgery, PGY2 Pager #[phone] Associated attestation - Arik Clement MD - [...] Zulma Dolan MD [facility] [place], [place] [address] (Wo rk) 05/28/2022 Laboratory Appointment Lab 05/28/2022 Office Visit Cardiology Zulma Dolan MD [facility] [place] [address] Liz Poole PA [facility] [place] [address] 06/10/2022 Office Visit Dermatology Laura Scherer MD [facility] [address] TEJA GR-DERMAT [place]LOG[place], [place] [address] (Wo rk) documented as of [...] Department: Vascular Surgery Lab VASCUBASE Report Patient: [id number] (GREGORY FATIMA) CPT: 12114 ICD10: I82.541 Referring Physician: TAMIKO JIMÉNEZ ?? [...] Glucose 128 65 - 199 [facility] mg/dL [facility] Comment: [...] Address City/State/ZIP Code Phon e Number [address] (ABNORMAL) D-Dimer, Quantitative (07/29/2017 2:15 PM EST) [facility] Method Time Signature D-Dimer, Quant 1,699 (H) 0 - 500 [facility] FEU ng/ml [facility] Comment: The D-Dimer assay is used [...] [place] [address] (ABNORMAL) Differential, Automated (07/29/2017 2:15 PM EST) [facility] Method Time Signature Neutrophils % 82.5 % [facility] Neutr Abs (ANC) 10.21 (H) 1.70 - [facility] 6.10 [facility] x10(3)/[facility] L LABORATORY Lymphocytes % 7.1 % [facility] Lymphocytes Abs 0.9 0.9 - 3.2 [facility] x10(3)/[facility] LABORATORY Monocytes % 6.5 % [facility]OR[facility]ORY Monocyte Abs 0.8 0.3 - 0.9 [facility] x10(3)/[facility] LABORATORY Eosinophils % 2.7 % [facility]ORY Eosinophils Abs 0.3 0.0 - 0.4 [facility] x10(3)/[facility] LABORATORY Basophils % 0.6 % [facility] Basophils Abs 0.1 0.0 - 0.1 [facility] x10(3)/[facility] LABORATORY Immature Gran % 0.60 [...] Organization Address City/State/[place] [address] (ABNORMAL) Hemogram (07/29/2017 2:15 PM EST) Analysis Performed At Patho logist Time Signature WBC 12.4 (H) 4.0 - 9.5 [facility] x10(3)/[facility] LABORATORY RBC 4.17 (L) 4.58 - [facility] 5.54 [facility] x10(6)/[facility] LABORATORY Hemoglobin 12.1 (L) 13.7 - [facility] 16.5 gm/dL [facility] Hematocrit 38.1 (L) 40.5 - [facility] 48.5 % [facility] MCV 91.4 82.9 - [facility] 93.1 [facility] LABORATORY MCH 29.0 27.5 - [facility] 32.1 pg [facility] MCHC 31.8 (L) 32.0 - [facility] R[facility]AN 35.7 gm/dL [facility] Platelets 204 145 - 357 [facility] x10(3)/[facility] LABORATORY RDWSD 50.5 (H) 36.0 - [facility] 45.0 [facility] LABORATORY RDWCV 15.3 (H) 11.4 - [facility] 13.8 % [facility] MPV 9.4 7.6 - 12.9 [facility] LABORATORY nRBC % Auto 0.0 % [facility]ORATORY nRBC Abs Auto 0.000 0.000 - [facility] 0.000 [facility] x10(3)/[facility] LABORATORY Specimen Anatomical Collection Method Collection Time Receive d Time (Source) Location / / Volume Laterality Blood specimen 07/29/2017 2:15 PM 018 2:36 (specimen) EST PM EST Resulting Agency Comment Spec In Lab Tamiko Jiménez MD HEMATOLOGY ORDERABLES Performing Organization Address City/State/[place] [address] (ABNORMAL) Prothrombin Time (07/29/2017 2:15 PM EST) P athologist Signature PT 24.4 (H) 11.8 - 14.0 [facility] LABORATORY INR 2.2 (H) 0.9 - [...] City/State/ZIP Code Phon e Number [place] [id number] HOSPITAL LABORATORY Drive Arterial Duplex Leg, Unil (07/29/2017 11:50 AM EST) Component Value Ref Test Analysis Performed At [facility] Range Method Time Signature VB Text Department: Vascular Surgery Lab VASCUBASE Report Patient: [id number] (GREGORY FATIMA) CPT: 23535 ICD10: Z09;I97.610 Referring Physician: TAMIKO JIMÉNEZ ?? [...] Department: Vascular Surgery Lab VASCUBASE Report Patient: [id number] (GREGORY FATIMA) CPT: 42853 ICD10: I82.441 Referring Physician: TAMIKO JIMÉNEZ ?? [...] he calf. Notification: Marquis Pathak MD (pager #[phone]) was notif ied of the preliminary findings. [...] STAT documented in this encounter Care Teams Blade Sharpener Relationship Specialty Start Date End Date Lovely Vicente MD PCP - General 04/16/[address] [place] [address] [address] [place] [address] documented as of this encounter
--- OUTSIDE RECORDS SUMMARY | 2022-05-22 08:20 | XMS_ITS | Encounter Summary ---
:1945 [place] [address] Care Team Providers Name Role Phone Lovely Vicente MD Primary Care Provider Reason for Visit Auth/Cert Specialty Diagnoses / Procedures Referred By Contact Refer red To Contact Diagnoses Critical lower limb ischemia CELLULITIS RT FOOT Procedures EMERGENCY Referral ID Status Reason Start Date Expiration Date Visits Requ ested Visits Authorized [id number] 1 1 Encounter Details Date Type Department Care Team Description 08/09/2017 Anesthesia Event Main Operating Room Daniele Lizama MD [facility] [place] [address] [facility] Rob Jones MD [facility] [place] [address] [place] [address] Anesthesia Record Procedure Summary Procedure Name Responsible Anesthesia Start Anesthesia Stop Anesthesiologist Time Time Rylee PUAG William E, MD 08/09/17 0802 08/09/17 0901 [...] Knowles, Dory arm), right; [facility] Rios, RN qajw-oju-yroumi catheter system; 20 gauge; 08/16/17; 1047 PIV 07/29/17; 1413; median 07/29/17 1413 by 08/16/17 1047 by cubital vein (antecubital Magdalene Hickey Williams, Dory fossa), left; V[facility]SI Wyatt, RN booy-rkf-gyszns catheter system; 20 gauge; 08/16/17; 1047 PIV 08/06/17; 1742; cephalic 08/06/17 1742 by 0920 by vein (lateral side of Taylor Laureano Danah y, Caitlyn C, arm), right; [facility] BONNER gsul-pup-iomczs catheter system; 22 gauge, 1 in length; Eliseo LAUREANO RN VAS; distraction, intradermal injection, tolerated well, appears comfortable; 0; 08/16/17; 0920 Wound 08/07/17; 1335; knee; 08/07/17 1335 by 08/16/17 1047 by laceration; wound occured Barbara Albert iams, Dory EQUITY HOLDER; 08/16/17; 1047 VAMSI Alonzo, RN PIV 08/07/17; 1734; cephalic 08/07/17 1734 by 1047 by vein (lateral side of Kendrick, Carlos W, Willia ms, Dory arm), left; MARCIE Wyatt RN mggo-gpz-cpekuk catheter system; 22 gauge; distraction, intradermal injection, [...] Santillan MD - 08/09/2017 9:01 AM EST [facility] Department of Anesthesiology Post-procedure Note Patient: Don Fatima Procedure Summary Date Anesthesia Start Anesthesia Stop Room / Location 08/09/17 0802 0901 [facility] OR 14 / [facility] MAIN OR Procedure Diagnosis Surgeon Responsible Provider AMPUTATION, 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 Nerve [...] at [facility] MAIN OR Social History Substance [...] adequate IV access. Brody Santillan MD PGY-2, Storage Solutions Architect Pager #[phone] Anesthesiology Staff (Dewhirst): Pre-op summary note as [...] [facility] [place], [place] [address] (Wo rk) 05/28/2022 Laboratory Appointment Lab 05/28/2022 Office Visit Cardiology Zulma Dolan MD [facility] [place] [address] Liz Poole PA [facility] [place] [address] 06/10/2022 Office Visit Dermatology Laura Scherer MD [facility] DR [address]-DERMAT OLOGY [place], [place] [address] (Wo rk) documented as of [...] Length: 10 cm Gauge: 21 Needle Type: K-dczky-yteuc Medication injection made in crementally with aspirations. [...] Procedure) documented in this encounter Care Teams Supervisor Boiler Repair Relationship Specialty Start Date End Date Lovely Vicente MD PCP - General 04/16/[address] [place] [address] documented as of this encounter
--- OUTSIDE RECORDS SUMMARY | 2022-05-22 08:20 | XMS_ITS | Encounter Summary ---
:1945 [place] [address] Care Team Providers Name Role Phone Lovely Vicente MD Primary Care Provider Encounter Details Date Type Department Care Team Description 07/29/2017 Hospital Encounter Vascular Lab at Critic monica Huber lower limb [facility] [place] [id number] Social History Tobacco Use Types Packs/Day Years [...] Zulma Dolan MD [facility] [place], [place] [address] (Wo rk) 05/28/2022 Laboratory Appointment Lab 05/28/2022 Office Visit Cardiology Zulma Dolan MD [facility] [place] [address] Liz Poole PA [facility] [place] [address] 06/10/2022 Office Visit Dermatology Laura Scherer MD [facility] DR [address]-DERMAT O[place], [place] [address] (Wo rk) documented as of this encounter Visit Diagnoses Diagnosis Critical lower limb ischemia Unspecified circulatory system disorder documented in this encounter Care Teams Safety Lead Relationship Specialty Start Date End Date Lovely Vicente MD PCP - General 04/16/[address] [place] [address] documented as of this encounter
--- OUTSIDE RECORDS SUMMARY | 2022-05-22 08:20 | XMS_ITS | Encounter Summary ---
:1945 [place] [address] Care Team Providers Name Role Phone Lovely Vicente MD Primary Care Provider Encounter Details Date Type Department Care Team Description 08/05/2017 Notes Only Vascular Surgery at [facility] Eden Moss, ST[place] [address] VASCULAR SURGERY [phone] [place], [place] [address] (Wo rk) Social History [...] Zulma Dolan MD [facility] [place], [place] [address] (Wo rk) 05/28/2022 Laboratory Appointment Lab 05/28/2022 Office Visit Cardiology Zulma Dolan MD [facility] [place] [address] Liz Poole PA [facility] [place] [address] 06/10/2022 Office Visit Dermatology Laura Scherer MD [facility] DR TE[address]-DERMAT [place], [place] [address] (Wo rk) documented as of this encounter Visit Diagnoses Not on filedocumented in this encounter Care Teams Drug Abuse Counselor Relationship Specialty Start Date End Date Lovely Vicente MD PCP - General 04/16/15 [facility] [address] [place] [address] documented as of this encounter
--- OUTSIDE RECORDS SUMMARY | 2022-05-22 08:20 | XMS_ITS | Encounter Summary ---
:1945 Author Organization [facility] [place] [address] Care Team Providers Name Role Phone Lovely Vicente MD Primary Care Provider Reason for Visit Reason Comments Deep Vein Thrombosis Auth/Cert Specialty Diagnoses / Procedures Referred By Contact Refer red To Contact Diagnoses Critical lower limb ischemia CELLULITIS RT FOOT Procedures EMERGENCY Referral ID Status Reason Start Date Expiration Date Visits Requ ested Visits Authorized [id number] 1 1 Encounter Details Date Type Department Care Team Description 08/04/2017 Office Visit Vascular Surgery at Arik Clement Cr itical lower limb [facility] ischemia [facility] [address] [place], [place] VASCULAR SURGERY [address] [place] [address] [phone] Social History Tobacco Use Types Packs/Day Years [...] Dolan MD [facility] [place] [address] Liz Poole PA [facility] [place] [address] 06/10/2022 Office Visit Dermatology Laura Scherer MD [facility] DR TEJA GR[address]DERMAT [place], [place] [address] (Wo rk) documented as of this encounter Visit Diagnoses Diagnosis Critical lower limb ischemia Unspecified circulatory system disorder documented in this encounter Care Teams Sample Case Porter Relationship Specialty Start Date End Date Lovely Vicente MD PCP - General 04/16/15 [facility] [address] [place], [place] [address] documented as of this encounter
--- OUTSIDE RECORDS SUMMARY | 2022-05-22 08:20 | XMS_ITS | Encounter Summary ---
:1945 Author Organization [facility] [place] [address] Care Team Providers Name Role Phone Lovely Vicente MD Primary Care Provider Encounter Details Date Type Department Care Team Description 07/29/2017 Transcribe Orders Laboratory Lovely Vicente MD [address] [address] [place] [address] [phone] (Wo rk) Social History Tobacco Use Types [...] MD [facility] [place] [address] [place] [address] (Wo rk) 05/28/2022 Laboratory Appointment Lab 05/28/2022 Office Visit Cardiology Zulma Dolan MD [facility] [place] [address] [facility] [place] [address] 06/10/2022 Office Visit Dermatology Laura Scherer MD [facility] ER [address] TE[address] GR[address]DERMAT [place], [place] [address] (Wo rk) documented as of this encounter Visit Diagnoses Not on filedocumented in this encounter Care Teams Lithographic Artist Relationship Specialty Start Date End Date Lovely Vicente MD PCP - General 04/16/[address] [place] [address] documented as of this encounter
--- OUTSIDE RECORDS SUMMARY | 2022-05-22 08:20 | XMS_ITS | Encounter Summary ---
:1945 Author Organization [facility] [place] [address] Care Team Providers Name Role Phone Lovely Vicente MD Primary Care Provider Reason for Visit Auth/Cert Specialty Diagnoses / Procedures Referred By Contact Refer red To Contact Diagnoses Critical lower limb ischemia CELLULITIS RT FOOT Procedures EMERGENCY Referral ID Status Reason Start Date Expiration Date Visits Requ ested Visits Authorized [id number] 1 1 Encounter Details Date Type Department Care Team Description 08/04/2017 [facility] Barbara Flower [place] thrombosis of [facility] [phone] Social History Tobacco Use Types Packs/Day Years [...] Appointment Cardiology Zulma Dolan MD [facility] [place], [place] [address] (Wo rk) 05/28/2022 Laboratory Appointment Lab 05/28/2022 Office Visit Cardiology Zulma Dolan MD [facility] [place] [address] Liz Poole PA [facility] [place] [address] 06/10/2022 Office Visit Dermatology Laura Scherer MD [facility] DR TE[address] GR-DERMAT [place]LOGY [place], [place] [address] (Wo rk) documented as [...] Test Analysis Performed At [facility] Range Method Time Signature VB Text Department: Vascular Surgery Lab VASCUBASE Report Patient: [id number] (DON HOANG) CPT: 96695 ICD10: I82.541 Referring Physician: MEÑO HUTSON ?? [...] extremity documented in this encounter Care Teams Solution Make Up Operator Relationship Specialty Start Date End Date Lovely Vicente MD PCP - General 04/16/[address] [place] [address] documented as of this encounter
--- OUTSIDE RECORDS SUMMARY | 2022-05-22 08:20 | XMS_ITS | Encounter Summary ---
:1945 [place] [address] Care Team Providers Name Role Phone Lovely Vicente MD Primary Care Provider Encounter Details Date Type Department Care Team Description 08/03/2017 Hospital Encounter Radiology Library at [place], Tommy Mijares [facility], located [facility] [place] [address] VASCULAR SURGERY [phone] [place], [place] [address] (Wo rk) Social History Tobacco [...] Dolan MD [facility] [address] [place], [place] [address] (Wo rk) 05/28/2022 Laboratory Appointment Lab 05/28/2022 Office Visit Cardiology Zulma Dolan [place] [address] Liz Poole PA [facility] [place] [address] 06/10/2022 Office Visit Dermatology Laura Scherer MD [facility] DR TEJA GR-DERMAT OLOGY [place], [place] [address] (Wo rk) documented [...] Time Received Time / Laterality Volume Narrative [facility] - 08/03/2017 6:01 PM EST This exam is for storage only and is aut o-finalizing. Arik Clement MD G FILM LIBRARY ORDERABLES Performing Organization Address City/State/ZIP Code Phon e Number [place], [place] documented in this encounter Visit Diagnoses Diagnosis Pain Generalized pain documented in this encounter Care Teams Highway Inspector Relationship Specialty Start Date End Date Lovely Vicente MD PCP - General 04/16/[address] [place] [address] documented as of this encounter
--- OUTSIDE RECORDS SUMMARY | 2022-05-22 08:20 | XMS_ITS | Encounter Summary ---
:1945 Author Organization [facility] [place] [address] Care Team Providers Name Role Phone Lovely Vicente MD Primary Care Provider Reason for Visit Auth/Cert Specialty Diagnoses / Procedures Referred By Contact Refer red To Contact Diagnoses Critical lower limb ischemia CELLULITIS RT FOOT Procedures EMERGENCY Referral ID Status Reason Start Date Expiration Date Visits Requ ested Visits Authorized [id number] 1 1 Encounter Details Date Type Department Care Team Description 08/04/2017 Hospital Encounter [place]Ray [place] [facility] Danette Maxwell Incisional pain [address] [place] [address] Dr Gomes, TESTER SOUND [facility] [address] CARDIOLOGY [place], [place] [address] Social History Tobacco Use Types [...] Dolan MD [facility] [place], [place] [address] (Wo rk) 05/28/2022 Laboratory Appointment Lab 05/28/2022 Office Visit Cardiology Zulma Dolan MD [facility] [place] [address] Liz Poole PA [facility] [place] [address] 06/10/2022 Office Visit Dermatology Laura Scherer MD [facility] DR TEJA GR-DERMAT OLOGY [place], [place] [address] (Wo rk) documented [...] original. EXAMINATION: XR CHEST PA AND LATERAL (Herrenschmiede) CLINICAL HISTORY: Checking sternal stabi lity/assess wires [...] Daniele gutiérrez 08/04/2017 4:13 PM Danette Maxwell TESTER SOUND IMG DX ORDERABLES documented in this encounter Visit Diagnoses Diagnosis Incisional pain Disturbance of skin sensation documented in this encounter Care Teams High School Music Instructor Relationship Specialty Start Date End Date Lovely Vicente MD PCP - General 04/16/[address] [place] [address] documented as of this encounter
--- OUTSIDE RECORDS SUMMARY | 2022-05-22 08:20 | XMS_ITS | Encounter Summary ---
:1945 [place] [address] Care Team Providers Name Role Phone Lovely Vicente MD Primary Care Provider Encounter Details Date Type Department Care Team Description 08/04/2017 Notes Only Cardiac Surgery Makayla Wilson APRN [facility] [place] [address] CARDIAC SURGERY [phone] [place], [place] [address] (Wo rk) Social History Tobacco [...] MD [facility] [place], [place] [address] (Wo rk) 05/28/2022 Laboratory Appointment Lab 05/28/2022 Office Visit Cardiology Zulma Dolan MD [facility] [place] [address] Liz Poole PA [facility] [place] [address] 06/10/2022 Office Visit Dermatology Laura Scherer MD [facility] [address]DERMAT [place], [place] [address] (Wo rk) documented as of this encounter Visit Diagnoses Not on filedocumented in this encounter Care Teams Notereader Relationship Specialty Start Date End Date Lovely Vicente MD PCP - General 04/16/[address] [place] [address] documented as of this encounter
--- OUTSIDE RECORDS SUMMARY | 2022-05-22 08:20 | XMS_ITS | Encounter Summary ---
:1945 Author Organization [facility] [place] [address] Care Team Providers Name Role Phone Lovely Vicente MD Primary Care Provider Reason for Visit Reason Comments Pain Management Ankle Pain Toe Pain Encounter Details Date Type Department Care Team Description 07/30/2017 Office Visit Pain Management at [facility], Per ipheral neuropathy Elbert DOUBLE BACKER due to ischemia [facility] [address], [place], [place] [phone] Social History Tobacco Use Types Packs/Day Years [...] - 07/30/2017 1:45 PM EST [facility] [place] [address] Phone: PAIN MANAGEMENT NEW PATIENT / CONSULTATION NOTE DATE OF VISIT 07/30/2017 Patient Don Fatima 1945 REFERRING PROVIDER Lovely Vicente MD [address] [place] [id number] PRIMARY CARE PROVIDER Lovely Vicente MD CHIEF [...] much relief PAST THERAPIES: Nothing MEDICATIONS The [place] Prescription Monitoring Program was checked and no [...] referral, Lovely Vicente MD [address] [place] [address]. Barbra Soares, MSN, ELECTRIC CRANE OPERATOR-BC, DOUBLE BACKER Nurse Practitioner Pain Management Center documented in this encounter Plan of Treatment Upcoming Encounters Date Type Specialty Care Team Description 05/28/2022 Appointment Cardiology Zulma Dolan MD [facility] [place], [place] [address] (Wo rk) 05/28/2022 Laboratory Appointment Lab 05/28/2022 Office Visit Cardiology Zulma Dolan MD [facility] [place] [address] Liz Poole PA [facility] [place] [address] 06/10/2022 Office Visit Dermatology Laura Scherer MD [facility] [address] [place], [place] [address] (Wo rk) documented as of this encounter Visit Diagnoses Diagnosis 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
--- OUTSIDE RECORDS SUMMARY | 2022-05-22 08:20 | XMS_ITS | Encounter Summary ---
:1945 Author Organization [facility] [place] [address] Care Team Providers Name Role Phone Lovely Vicente MD Primary Care Provider Encounter Details Date Type Department Care Team Description 08/04/2017 Orders Only Cardiac Surgery Makayla Wilson APRN [facility] [place] [address] CARDIAC SURGERY [phone] [place], [place] [address] (Wo rk) Social History Tobacco [...] MD [facility] [address] [place], [place] [address] (Wo rk) 05/28/2022 Laboratory Appointment Lab 05/28/2022 Office Visit Cardiology Zulma Dolan MD [facility] [place] [address] Liz Poole PA [facility] [place] [address] 06/10/2022 Office Visit Dermatology Laura Scherer MD [facility] ER [address] [place], [place] [address] (Wo rk) documented as of this encounter Visit Diagnoses Not on filedocumented in this encounter Care Teams Ice Platform Supervisor Relationship Specialty Start Date End Date Lovely Vicente MD PCP - General 04/16/[address] [place] [address] documented as of this encounter
--- OUTSIDE RECORDS SUMMARY | 2022-05-22 08:20 | XMS_ITS | Encounter Summary ---
:1945 Author Organization [facility] [place] [address] Care Team Providers Name Role Phone Lovely Vicente MD Primary Care Provider Encounter Details Date Type Department Care Team Description 07/29/2017 Transcribe Orders Laboratory Lovely Vicente MD [address] [address] [place] [address] [phone] (Wo rk) Social History Tobacco Use Types [...] MD [facility] [place] [address] [address] (Wo rk) 05/28/2022 Laboratory Appointment Lab 05/28/2022 Office Visit Cardiology Zulma Dolan [place] [address] Liz Poole PA [facility] [place] [address] 06/10/2022 Office Visit Dermatology Laura Scherer MD [facility] ER [address] [place], [place] [address] (Wo rk) documented as of this encounter Visit Diagnoses Not on filedocumented in this encounter Care Teams Crown Buffer Relationship Specialty Start Date End Date Lovely Vicente MD PCP - General 04/16/[address] [place] [address] documented as of this encounter
--- OUTSIDE RECORDS SUMMARY | 2022-05-22 08:20 | XMS_ITS | Encounter Summary ---
:1945 Author Organization [place] [address] Care Team Providers Name Role Phone Lovely Vicente MD Primary Care Provider Encounter Details Date Type Department Care Team Description 08/03/2017 Telephone Pain Management at [facility] [place]eno, [place] [address] Social History Tobacco Use Types Packs/Day [...] Management Center Preauthorization Request Patient: Don Fatima [id number] Fax received from [facility] requesting we obtain prior authorization for Lidocaine Patches prescribed by Barbra Soares APRN. RX insurance plan: [facility] [employer] insurance telephone: [phone] Patient ?? Diagnosis: right foot pain secondary to PVD and ischemia ?? Previous medications attempted: Tylenol, Tramadol, Dilaudid Authorization/Reference number: [id number], PBP Code 801 _x_ denied, provider and patient informed _x_ appeal initiated by provider, patient informed Angeles Rodrigez, RN documented in this encounter Plan of Treatment Upcoming Encounters Date Type Specialty Care Team Description 05/28/2022 Appointment Cardiology Zulma Dolan MD [facility] [place], [place] [address] (Wo rk) 05/28/2022 Laboratory Appointment Lab 05/28/2022 Office Visit Cardiology Zulma Dolan MD [facility] [place] [address] Liz Poole PA [facility] [place] [address] 06/10/2022 Office Visit Dermatology Laura Scherer MD [facility] [address] [place], [place] [address] (Wo rk) documented as of this encounter Visit Diagnoses Not on filedocumented in this encounter Care Teams Radiology Receptionist Relationship Specialty Start Date End Date Lovely Vicente MD PCP - General 04/16/[address] [place] [address] documented as of this encounter
--- OUTSIDE RECORDS SUMMARY | 2022-05-22 08:20 | XMS_ITS | Encounter Summary ---
:1945 Author Organization [facility] [place] [place] [address] Care Team Providers Name Role Phone Lovely Vicente MD Primary Care Provider Reason for Visit Auth/Cert Specialty Diagnoses / Procedures Referred By Contact Refer red To Contact Diagnoses Critical lower limb ischemia CELLULITIS RT FOOT Procedures EMERGENCY Referral ID Status Reason Start Date Expiration Date Visits Requ ested Visits Authorized [id number] 1 1 Encounter Details Date Type Department Care Team Description 08/04/2017 Laboratory Appointment Lab 3L Pending Sale To [facility] [place] [address] Social History Tobacco Use Types Packs/Day [...] [facility] er Dr [place] [address] (Wo rk) 05/28/2022 Laboratory Appointment Lab 05/28/2022 Office Visit Cardiology Zulma Dolan MD [facility] [address] Liz Poole PA [facility] [place] [address] 06/10/2022 Office Visit Dermatology Laura Scherer MD [facility] [address] [place], [place] [address] (Wo rk) documented as of this encounter Visit Diagnoses Not on filedocumented in this encounter Care Teams Ecological Technical Officer Relationship Specialty Start Date End Date Lovely Vicente MD PCP - General 04/16/15 [facility] [address] [place], [place] [address] documented as of this encounter
--- OUTSIDE RECORDS SUMMARY | 2022-05-22 08:20 | XMS_ITS | Encounter Summary ---
:1945 Author Organization [facility] [place] [address] Care Team Providers Name Role Phone Lovely Vicente MD Primary Care Provider Reason for Visit Auth/Cert Specialty Diagnoses / Procedures Referred By Contact Refer red To Contact Diagnoses Critical lower limb ischemia CELLULITIS RT FOOT Procedures EMERGENCY Referral ID Status Reason Start Date Expiration Date Visits Requ ested Visits Authorized [id number] 1 1 Encounter Details Date Type Department Care Team Description 08/04/2017 Office Visit Cardiology at [facility] Danette Maxwell Incisional pain; [facility] A, SECURITY CONTROL ROOM OFFICER Ischemic cardiomyopathy; [facility] ASCVD (arteriosclerotic card iovascular disease); [place], [place] Systolic heart failure, unspecified hear t failure chronicity [phone] CARDIOLOGY [phone] [place], [place] [address] Social History Tobacco Use Types [...] documented in this encounter Progress Notes Danette aMxwell, SECURITY CONTROL ROOM OFFICER - 08/04/2017 3:00 PM EST ID and [...] 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 [...] Zulma Dolan MD [facility] [place], [place] [address] (Wo rk) 05/28/2022 Laboratory Appointment Lab 05/28/2022 Office Visit Cardiology Zulma Dolan MD [facility] [place] [address] Liz Poole PA [facility] [place] [address] 06/10/2022 Office Visit Dermatology Laura Scherer MD [facility] [address] [place], [place] [address] (Wo rk) documented as of [...] sensation documented in this encounter Care Teams Tools Developer Relationship Specialty Start Date End Date Lovely Vicente MD PCP - General 04/16/[address] [place] [address] documented as of this encounter
--- OUTSIDE RECORDS SUMMARY | 2022-05-22 08:21 | XMS_ITS | Encounter Summary ---
:1945 [place] [address] Care Team Providers Name Role Phone Lovely Vicente MD Primary Care Provider Reason for Visit Reason Comments Hospital Transfer cold foot post CABG Auth/Cert Specialty Diagnoses / Procedures Referred By Contact Refer red To Contact Diagnoses Critical lower limb ischemia Procedures NAYE IPI Referral ID Status Reason Start Date Expiration Date Visits Requ ested Visits Authorized [id number] 1 1 Encounter Details Date Type Department Care Team Description 07/20/2017 Hospital Encounter 4 Herminia Ibarra MD [facility] [place] [address] Critical lower limb [facility] Arik Clement MD [facility] [place] [address] [place] [address] Social History Tobacco Use Types Packs/Day Years [...] home. Important Studies and Lab Data: Labs: [facility] Lab Results Component Value Date INR 1.5 [...] For any problems or questions please call [phone] ZELDA Smith, account services manager Nurse Clinician For issues on weeknights after 5pm and weekends please call [phone] and ask for the Vascular Fellow classification and treatment director. General Instructions None Future Appointments and Orders Future Appointments Provider Department Dept Phone 08/04/2017 1:00 PM Daniele Mooney [place] [facility] [phone] 08/04/2017 2:15 PM Arik Clement MD [facility] [phone] 09/07/2017 3:00 PM MAYRA CHACON Lab [facility] [phone] 09/07/2017 4:00 PM Luz Prescott MD [facility]ocrinology [facility] [phone] Future Orders Complete By Expires Arterial Duplex Leg, Unil [VAS32 Custom] 07/27/2017 (Approximate) 01/26/2018 Process Instructions: There is no in-house vascular laborer vineyard available on weeknights (5pm-8am), weekends, or holidays. IF THIS IS A REQUEST FOR AN EMERGENT STUDY DURING THOSE HOURS, please have the senior provider responsible for the patient page the Vascular Surgery Fellow/Senior Resident classification and treatment director to discuss options. Scheduling Instructions: Questions: Indication for study/signs & symptoms: Right femoral PSA s/p cardiac cath Question to be answered: bloodflow to PSA Laterality: Right Is there a RIGHT LOWER EXTREMITY graft?: No Lower limb right segments: Common Femoral Is there a stent?: No At which location will this be performed?: [facility] Referral to Home Health - at DISCHARGE [[id number] CPT(R)] As directed Process Instructions: Scheduling Instructions: Comments: DOCUMENTATION FOR VNA SERVICES (INCLUDING THOSE PATIENTS WITH MEDICARE COVERAGE REQUIRING HOME VNA SERVICES AND/OR HOSPICE SERVICES) PATIENT'S LOCATION: Gregory Fatima [address] [place] [address] [place] [phone] (home) Cell: Telephone Information: Hollow Core Door Frame Assembler's Name: self In discussion with the attending physician, it is certified that this patient is under their care and that they, or a Nurse Practitioner,Clinical Nurse specialist or Physician Stoker Installation Mechanic who is working directly with them, had [...] [facility] ([facility] [place] [facility]-is in [place]) PHONE: [phone] FAX: [phone] Start of care: 24- 48 hours FOR [...] patient'sPCP: Lovely Vicente MD [address] [facility] [place] / [place] [address] All VNA agencies which cover the area [...] For any problems or questions please call [phone] ZELDA Smith, account services manager Nurse Clinician For issues on weeknights after 5pm and weekends please call [phone] and ask for the Vascular Fellow classification and treatment director. documented in this encounter Medications at Time of Discharge Medication Sig Dispensed Refills Start Date End Date ACCU-CHEK ETRA PLUS 2-3 times daily 100 each 1 [...] RN - 07/20/2017 2:53 PM EST The patient/client care representative has been provided a list of Home Health Agencies/DME vendors which serve their preferred geographic area. A letter describing our affiliations was reviewed with them and theywere educated about their right to choose where referrals are placed. Patient requests referral to [facility] [employer]. PHONE: [phone] FAX: [phone]. Expected date of discharge: 07/20/2017 . Referral routed to the Internet Sales Manager for matching with agency/vendor and to provide any required information. Naty Pulliam RN - 07/20/2017 11:37 AM EST The patient/client care representative has been provided a list of Home Health Agencies/DME vendors which serve their preferred geographic area. A letter describing our affiliations was reviewed with them and theywere educated about their right to choose where referrals are placed. Patient requests referral to [facility] ([facility] [place] [facility]- is in [facility] PHONE: [phone] FAX: [phone]. Expected date of discharge: 07/20/2017 . Referral routed to the Internet Sales Manager for matching with agency/vendor and to provide any required information. Katina Pulliam RNhousekeeping department worker Janneth Lee MD - 07/20/2017 7:29 [...] [facility] ??? PRO CABG, ARTERIAL, SINGLE N/A 07/07/2017 @CABG, USING ARTERIAL GRAFT;SINGLE ARTERIAL GRAFT (WRVU 33.75) performed by Yuan Retana MD at [facility] MAIN OR ??? PRO CABG, ARTERY-VEIN, TWO N/A 07/07/2017 @CABG, TWO VENOUS GRAFTS & ARTERIAL GRAFT (WRVU 7.93) performed by Yuan Retana MD at [facility] MAIN OR ??? PRO COLONOSCOPY, REMV LESN, SNARE 01/16/2014 COLONOSCOPY, POLYPECTOMY, REMOVAL LESION BY SNARE performed by Nohemi Jaimes MD at [facility] ENDOSCOPY ??? PRO ENDOSCOPY W/VIDEO-ASST VEIN HARVEST, CABG Right 07/07/2017 ENDOSCOPIC HARVEST VEIN(S) FOR CABG (WRVU 0.31) performed by Yuan Retana MD at [facility] MAIN OR ??? PRO THYROIDECTOMY 03/28/2013 THYROIDECTOMY, TOTAL OR COMPLETE performed by Manny Mcknight MD at [facility] MAIN OR Functional Status/Social Hx: Social [...] -ISS -pain control Discussed with Vascular Fellow classification and treatment director. Chris Valadez MD PGY2 Pager [phone] documented in this encounter ED Notes Annita Reaves MD - 07/20/2017 3:15 PM EST Emergency Department Gregory Fatima is a 72 y.o. male who presents to [facility] with arterial thrombosis. [...] Hospitalizations Within the Past 30 Days: [facility] 07/05/17 Anticipated Length [...] Health/Prescription Coverage: Primary Insurance: MEDICARE Secondary Insurance: [employer] [facility] Prescription Coverage: See above Preferred Pharmacy: [facility] Other: N/A Primary Care Provider: Lovely Vicente MD [phone] Patient/Caregiver Goals of Treatment: Patient plans to return home when medically ready Potential Needs for Transition of Care: Rehab/SNF: N/A Home Health: [facility] ([facility] [place] [facility]-is in [place]) PHONE: [phone] FAX: [phone] DME: N/A Dialysis: N/A Community Resources: N/A Transportation: Patient family will transport Other: N/A Anticipated Barriers to Discharge/Special Considerations: None Plan: Patient plans to return home with home health services when medically ready A member of the Care Management team will continue to monitor progress, follow for continuity of care and assist with transition of care planning. Naty Pulliam, RN Pager: [phone] ED Triage - Rayna Weir RN - 07/20/2017 12:28 AM EST Pt transferred from [place] for blue right foot and painful toes. Pt reports he has been having intermittent numbness and pain in BLE. RLE blue, but warm and cap refill >3. Resident Lizzie able todoppler a faint pedal pulse and luise nrique site. Alert and oriented. Respirations even and unlabored. Heparin continued at 1000 units/hr. documented in this encounter Plan of Treatment Upcoming Encounters Date Type Specialty Care Team Description 05/28/2022 Appointment Cardiology Zulma Dolan MD [facility] [place] [address] (Wo rk) 05/28/2022 Laboratory Appointment Lab 05/28/2022 Office Visit Cardiology Zulma Dolan MD [facility] [place] [address] Liz Poole PA [facility] [place] [address] 06/10/2022 Office Visit Dermatology Laura Scherer MD [facility] DR TEJA GR[place], [place] [address] (Wo rk) documented as of this encounter Procedures Procedure Name Priority Date/Time Associated Comments Diagnosis DIRECTOR OF CASINO SCAN 09/02/2017 12:00 Res ults for this [...] LAB EST procedure are i n ([facility]) the results section. APTT STAT 07/20/2017 2:25 AM Results f or this EST procedure are i n the results section. PROTHROMBIN TIME STAT 07/20/2017 2:25 AM Resul ts for this EST procedure are i n the results section. BASIC METABOLIC PANEL STAT 07/20/2017 2:25 AM Results for this (NON-FASTING) EST procedure are in the results section. documented in this encounter Results SCAN DOC: DIRECTOR OF CASINO (09/02/2017 12:00 AM EST) Narrative 09/02/2017 12:00 AM EST This result has an attachment that is no t available. Ordered by an unspecified provider. Scanning Provider MEDIA MGR SCAN EXT ORDR/RSLT POCT Glucose (07/20/2017 12:04 PM EST) P athologist Signature POC Glucose 189 65 - 199 [facility] mg/dL [facility] Comment: Supplemental ranges: <140 mg/dL before meals <180 mg/dL all other times of the day Specimen Anatomical Collection Method Collection Time Receive d Time (Source) Location / / Volume Laterality Blood specimen 07/20/2017 12:04 7 (specimen) PM EST 12:04 PM EST Arik Clement MD POINT OF CARE TEST ORDERABLE S Performing Organization Address City/State/ZIP [place] [address] (ABNORMAL) Differential, Automated (07/20/2017 10:34 AM EST) Patholo gist Method Time Signature Neutrophils % 84.3 % [facility] Neutr Abs (ANC) 14.27 (H) 1.70 - [facility] 6.10 [facility] x10(3)/[facility] LABORATORY Lymphocytes % 5.6 % [facility] Lymphocytes Abs 1.0 0.9 - 3.2 [facility] x10(3)/[facility] LABORATORY Monocytes % 6.1 % [facility] Monocyte Abs 1.0 (H) 0.3 - 0.9 [facility] x10(3)/[facility] LABORATORY Eosinophils % 2.4 % [facility] Eosinophils Abs 0.4 0.0 - 0.4 [facility] x10(3)/[facility] LABORATORY Basophils % 0.5 % [facility] Basophils Abs 0.1 0.0 - 0.1 [facility] x10(3)/[facility] LABORATORY Immature Gran % 1.10 % [facility] [...] [place] [address] (ABNORMAL) Hemogram (07/20/2017 10:34 AM EST) Analysis Performed At Patho logist Time Signature WBC 17.0 (H) 4.0 - 9.5 [facility] x[facility] LABORATORY RBC 3.70 (L) 4.58 - [facility] 5.54 [facility] x10(6)/[facility] LABORATORY Hemoglobin 10.8 (L) 13.7 - [facility] 16.5 gm/dL [facility] Hematocrit 33.4 (L) 40.5 - [facility] 48.5 % [facility] MCV 90.3 82.9 - [facility] 93.1 [facility] LABORATORY MCH 29.2 27.5 - [facility] RYAN 32.1 pg [facility] MCHC 32.3 32.0 - [facility] RYAN 35.7 gm/dL [facility] Platelets 211 145 - 357 [facility] x10(3)/[facility] LABORATORY RDWSD 49.1 (H) 36.0 - [facility] RYAN 45.0 [facility] LABORATORY RDWCV 14.7 (H) 11.4 - [facility] RYAN 13.8 % [facility] MPV 9.2 7.6 - 12.9 [facility] nRBC % Auto 0.0 % [facility] nRBC Abs Auto 0.000 0.000 - [place] RYAN 0.000 [facility] x10(3)/[facility] LABORATORY Specimen Anatomical Collection Method Collection Time Receive d Time (Source) Location / / Volume Laterality Blood specimen 07/20/2017 10:34 7 (specimen) AM EST 10:39 AM EST Resulting Agency Comment Spec In Lab Arik Clement MD HEMATOLOGY ORDERABLES Performing Organization Address City/State/[place] [address] (ABNORMAL) APTT (07/20/2017 10:34 AM EST) athologist Signature PTT 79 (H) 25 - 35 sec [facility] Comment: The recommended therapeutic range for fu ll dose, unfractionated heparin at [facility] is 80 ? [...] Clement MD HEMATOLOGY ORDERABLES Performing Organization Address City/[facility]/[place] [address] POCT Glucose (07/20/2017 7:41 AM EST) athologist Signature POC Glucose 174 65 - 199 [facility] mg/dL [facility] Comment: Supplemental ranges: <140 mg/dL before meals <180 mg/dL all other times of the day Specimen Anatomical Collection Method Collection Time Receive d Time (Source) Location / / Volume Laterality Blood specimen 07/20/2017 7:41 AM 017 7:41 (specimen) EST AM EST Arik Clement MD POINT OF CARE TEST ORDERABLE S Performing Organization Address City/[facility]/ZIP Code Phon e Number [address] JULIAN, legs, multiple levels (07/20/2017 7:33 AM EST) Component Value Ref Test Analysis Performed At Patholo gist Range Method Time Signature VB Text Department: Vascular Surgery Lab VASCUBASE Report Patient: [id number] (GREGORY FATIMA) CPT: 34223 ICD10: I75.021;I99.8 Referring Physician: ARIK CLEMENT ?? [...] Value Ref Test Analysis Performed At [facility] Range Method Time Signature VB Text Department: Vascular Surgery Lab VASCUBASE Report Patient: [id number] (GREGORY FATIMA) CPT: 81657 ICD10: I97.610;I99.8 Referring Physician: ARIK CLEMENT ?? [...] Glucose 199 65 - 199 [facility] mg/dL [facility] Comment: Supplemental ranges: <140 mg/dL before meals <180 mg/dL all other times of the day Specimen Anatomical Collection Method Collection Time Receive d Time (Source) Location / / Volume Laterality Blood specimen 07/20/2017 3:41 AM 017 3:41 (specimen) EST AM EST Arik Clement MD POINT OF CARE TEST ORDERABLE S Performing Organization Address City/[facility]/ZIP [facility] [place] [address] Lactate, whole blood, send to lab (Leb/CGP) (07/20/2017 2:25 AM EST) athologist Signature Lactate WB 2.0 0.5 - 2.2 [facility] mmol/L [facility] Specimen Anatomical Collection Method Collection Time Receive d Time (Source) Location / / Volume Laterality Blood specimen Venous Draw / 07/20/2017 2:25 AM 2016 2:37 (specimen) Unknown EST AM EST Resulting Agency Comment Spec In Lab Zulma Samuel MD CHEMISTRY ORDERABLES Performing Organization Address City/[facility] Code Phon e Number [address] (ABNORMAL) APTT (07/20/2017 2:25 AM EST) athologist Signature PTT 36 (H) 25 - 35 sec [facility] Comment: The recommended therapeutic range for fu ll dose, unfractionated heparin at [facility] is 80 ? [...] Reaves MD HEMATOLOGY ORDERABLES Performing Organization Address City/[facility]/[place] [address] (ABNORMAL) Prothrombin Time (07/20/2017 [...] [place] [address] (ABNORMAL) Basic Metabolic Panel (non-fasting) (07/20/2017 2:25 AM EST) P athologist Signature Glucose Lvl 187 65 - 199 [facility] mg/dL [facility] Comment: Diabetes: >=200 mg/dL plus symp toms BUN 35 (H) 10 - 20 mg/dL [facility] Creatinine 1.51 (H) 0.80 - 1.50 mg/dL [facility] Sodium 134 (L) 135 - 145 mmol/L [facility] Potassium Not Perf 3.5 - 5.0 mmol/L [facility] Comment: Specimen hemolyzed. Called by: [facility], Read back by: Chitra Orantes, Date/Time:07/20/17 [...] or in patients with acute kidney failure. [email or web address] Specimen Anatomical Collection Method Collection Time Receive d Time (Source) Location / / Volume Laterality Blood specimen 07/20/2017 2:25 AM 017 2:33 (specimen) EST AM EST Resulting Agency Comment Spec In Lab Annita Reaves MD CHEMISTRY ORDERABLES Performing Organization Address City/State/ZIP Code Phon e Number [place] [id number] documented in this encounter [...] Group 2) 0-8,000 Units, Intravenous, BOLUS PER [facility] PROTOCOL, Starting Wed07/20/17 at 0424, Until Wed07/20/17 [...] 2 mg 0524 (Given - Provider: Ines aCntu RN)1020 (Given - Provider: Laura Vega RN) [...] documented in this encounter Care Teams Director Employment Relationship Specialty Start Date End Date Lovely Vicente MD PCP - General 04/16/[address] [place] [address] documented as of this encounter
--- OUTSIDE RECORDS SUMMARY | 2022-05-22 08:21 | XMS_ITS | Encounter Summary ---
:1945 Author Organization [facility] [place] [address] Care Team Providers Name Role Phone Lovely Vicente MD Primary Care Provider Encounter Details Date Type Department Care Team Description 07/24/2017 Telephone Vascular Surgery Melba Bob [facility] [place] [address] [facility] [phone] VASCULAR SURGERY [place], [place] [address] (Wo rk) Social History [...] [facility] [address] [place] [address] (Wo rk) 05/28/2022 Laboratory Appointment Lab 05/28/2022 Office Visit Cardiology Zulma Dolan MD [facility] [place] [address] Liz Poole PA [facility] [place] [address] 06/10/2022 Office Visit Dermatology Laura Scherer MD [facility] [address] [place], [place] [address] (Wo rk) documented as of this encounter Visit Diagnoses Not on filedocumented in this encounter Care Teams Laborer Orchard Relationship Specialty Start Date End Date Lovely Vicente MD PCP - General 04/16/[address] [place] [address] documented as of this encounter
--- OUTSIDE RECORDS SUMMARY | 2022-05-22 08:21 | XMS_ITS | Encounter Summary ---
:1945 Author Organization [facility] [place] [address] Care Team Providers Name Role Phone Lovely Vicente MD Primary Care Provider Reason for Visit Reason Onset Date Comments Other 07/22/2017 lovenox bridge Encounter Details Date Type Department Care Team Description 07/22/2017 Telephone Cardiology at [facility] Court Cadena RN Other (lovenox bridge) [place] [address] Social History Tobacco Use Types Packs/Day [...] 4:49 PM EST VAMSI Del Castillo, at [facility], called earlier today with a question re: lovenox bridge for this patient who was recently discharged from [facility] r/t a blood clot. Discharge note faxed to [facility] (fax# [phone], Ph#: [phone]) which contains instructions r/t lovenox bridge as follows: Anticoagulation: on lovenox bridge to therapeutic coumadin for AFib. Goal INR 2-3. At discharge INR=1.5. The lovenox injections can stop when INR >2, coumadin will continue indefinitely. documented in this encounter Plan of Treatment Upcoming Encounters Date Type Specialty Care Team Description 05/28/2022 Appointment Cardiology Zulma Dolan MD [facility] [place], [place] [address] (Wo rk) 05/28/2022 Laboratory Appointment Lab 05/28/2022 Office Visit Cardiology Zulma Dolan MD [facility] [place] [address] Liz Poole PA [facility] [place] [address] 06/10/2022 Office Visit Dermatology Laura Scherer MD [facility] [address] [place], [place] [address] (Wo rk) documented as of this encounter Visit Diagnoses Not on filedocumented in this encounter Care Teams Nutrition Instructor Relationship Specialty Start Date End Date Lovely Vicente MD PCP - General 04/16/[address] [facility] [address] [place] [address] documented as of this encounter
--- OUTSIDE RECORDS SUMMARY | 2022-05-22 08:21 | XMS_ITS | Encounter Summary ---
:1945 Author Organization [place] [address] Care Team Providers Name Role Phone Lovely Vicente MD Primary Care Provider Reason for Visit Reason Comments Foot Pain Auth/Cert Specialty Diagnoses / Procedures Referred By Contact Refer red To Contact Diagnoses Ischemic foot Procedures NAYE OBSVO Referral ID Status Reason Start Date Expiration Date Visits Requ ested Visits Authorized [id number] 1 1 Encounter Details Date Type Department Care Team Description 07/27/2017 Emergency 1 [facility] Lokesh Swenson MD [facility] [place] [address] Femoral artery pseudo-aneurysm, right; [facility] Tam Bauman MD [facility] [place] [address] [place] [address] Social History Tobacco Use Types Packs/Day [...] Gregory Fatima Patient Age: 72 y.o. Language: Albanian Race: White Ethnicity: Not [...] please contact your inpatient physician through the [facility] Welcome Wagon Host/Hostess . Issues after hours and on weekends [...] RLE critical limb ischemia, who presented to [facility] with worsening RLE pain. Pt post-op course after CABG was significant for paroxysmal Afib, and he was started on Coumadin given elevated [id number] score. 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 He [...] in the last 7068 hours. Invalid input(s): [id number] Recent Labs 07/08/17 0400 07/07/17 0515 07/06/17 [...] (it was low at 1.6 here at [facility]) 7. Use the tramadol if dilaudid or tylenol is not working 8. Stop taking the potassium supplement - your blood potassium level was elevated. Ask your doctors at future visits if this should be restarted. 9. Antibiotic for 5 days recommended by cardiothoracic surgery for chest wound drainage Follow-Up Appointments Vascular surgery as previously schedule Your Inpatient Doctor(s) at [facility]: CARLOS ALBERTO ROSALES MD General Instructions None Future Appointments and Orders Future Appointments Provider Department Dept Phone 07/30/2017 8:30 AM OSWALDO, THREE L Lab 3L [facility] [phone] 07/30/2017 9:40 AM Danette Maxwell APRN Cardiology at [place] [phone] 08/04/2017 1:00 PM Daniele Mooney [place] Vascular Lab at [place] [phone] 08/04/2017 2:15 PM Arik Clement MD Vascular Surgery at [place] [phone] 08/11/2017 10:00 AM [facility] 2 XRay at [place] [phone] Please go to Game [facility] Area 3T ([place] Location). 08/11/2017 11:00 AM Yuan Retana MD Cardiac Surgery at [place] [phone] 09/07/2017 3:00 PM LAB, THREE L Lab 3L [facility] [phone] 09/07/2017 4:00 PM Luz Prescott MD Endocrinology at [place] [phone] Discharge References/Attachments None documented in this encounter [...] (it was low at 1.6 here at [facility]) 3. Use the tramadol if dilaudid or tylenol is not working 4. Stop taking the potassium supplement - your blood potassium level was elevated. Ask your doctors at future visits if this should be restarted. 5. Antibiotic for 5 days recommended by cardiothoracic surgery for chest wound drainage Follow-Up Appointments Vascular surgery as previously schedule Your Inpatient Doctor(s) at [facility]: CARLOS ALBERTO ROSALES MD documented in this [...] Gas) No results found for: PHART, PO2ART, [id number] Assessment/Plan: 72 y.o. male s/p CABG in [...] intervention: Education Nutrition Recommendations: Recommend continuation of [facility], CHO2 diet order Patient and denied need [...] Orders Diet Daily Healthy Menu Choices/Cardiac diet ([facility]-Diet) 60/ CHO counting level 2 Frequency: Effective Now Number of Occurrences: Until Specified Admit Weight: 83.92 kg Estimated body mass index is 28.13 kg/(m^2) as calculated from the following: Height as of this encounter: 172.7 cm (5' 8). Weight as of this encounter: 83.9 kg (185 lb). Drake body weight: 68.4 kg (150 lb 12.7 [...] RLE critical limb ischemia, who presented to [facility] with worsening RLE pain. Visited with patient [...] spent >30 minutes (Day of Discharge Code 22560) involved in the final examination of the [...] Melanoma ID: 72 y.o. Male presents to [facility] with persistent pain b/l lower extremities History of Present Illness: HPI 72 y.o. male with PMH ASCVD s/p CABG (07/07/17), MARIA VICTORIA on CPAP QHS, HTN, HLD, DM2, with recent hospitalization for RLE critical limb ischemia, who presented to [facility] with worsening RLE pain. Pt post-op course after CABG was significant for paroxysmal Afib, and he was started on Coumadin given elevated [id number] score. 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 He [...] Procedure Component Value Units Date/Time Blood culture [[id number]] Collected: 07/09/1739 Lab Status: Final result Specimen: Blood from Arm, Right Updated: 07/14/17701 Blood Culture No growth at 5 days. Blood culture [[id number]] Collected: 07/09/170 Lab Status: Final result Specimen: [...] limb ischemia following CABG, who presented to [facility] ED from home with persistent B/L LE [...] continued Diet Daily Healthy Menu Choices/Cardiac diet ([facility]-Diet) 60/60/75 CHO counting level 2Cardiac, low salt, CHO 2 Discharge planning Pending improvement in pain control PT/OT/Speech PT ordered Lines/Access PIV Ocasio catheter No DVT/GI Prophylaxis Lovenox bridge to Coumadin, SCD. Code status Full Code Family PCP Lovely Vicente MD [phone] Attestation Please see my note for details [...] (with meals). 10 mL 1 ??? ACCU-CHEK ETRA PLUS TEST STRP Strip [...] encounter Miscellaneous Notes Plan of Care - [place]-Joyce Damian, PT - 07/27/2017 3:26 PM EST [...] Anticipated Discharge Disposition: home with assist Pager: [phone] JOYCE KING, PT Inpatient Physical Therapy 2017 [...] including the following functional test(s) [facility] Current ability measures, co-morbidities and clinical judgement [...] a lovenox bridge. Mr. Fatima returns to [facility] ED tonight because of ongoing pain in [...] to f/u in Vascular Clinic this week. Zumla Lazo MD 07/27/2017 Vascular Surgery Senior: 72 [...] Dolan MD [facility] [place], [place] [address] (Wo rk) 05/28/2022 Laboratory Appointment Lab 05/28/2022 Office Visit Cardiology Zulma Dolan MD [facility] [place] [address] Liz Poole PA [facility] [place] [address] 06/10/2022 Office Visit Dermatology Laura Scherer MD [facility] [address] [place], [place] [address] (Wo rk) documented as of [...] section. TYPE AND SCREEN STAT 07/27/2017 12:53 ([facility]/CGP/SHANDA) AM EST BASIC METABOLIC PANEL STAT 07/27/2017 12:53 Re sults for this (NON-FASTING) AM EST procedure are in the results section. documented in this encounter Results POCT Glucose (07/27/2017 11:53 AM EST) P athologist Signature POC Glucose 175 65 - 199 [facility] mg/dL [facility] Comment: [...] Organization Address City/State/ZIP [place] [address] Arterial Duplex Leg, Unil (07/27/2017 7:40 AM EST) Component Value Ref Test Analysis Performed At Patholo gist Range Method Time Signature VB Text Department: Vascular Surgery Lab VASCUBASE Report Patient: [id number] (GREGORY FATIMA) CPT: 68517 ICD10: I97.610;I72.4;Z09 Referring Physician: TAM BAUMAN ?? [...] Bauman MD VASCULAR ORDERABLES Performing Organization Address City/[facility]/ZIP Code Phon e Number VASCUBASE POCT Glucose (07/27/2017 6:51 AM EST) P athologist Signature POC Glucose 96 65 - 199 [facility] mg/dL [facility] Comment: [...] Organization Address City/[facility]/ZIP [facility] Phon e Number [address] ABORH Recheck Status (07/27/2017 12:53 AM EST) Patholo gist Method Time Signature ABORH Type Completed [facility] LABORATORY Specimen Anatomical Collection Method Collection Time Receive d Time (Source) Location / / Volume Laterality Blood specimen 07/27/2017 12:53 8 (specimen) AM EST 12:58 AM EST Resulting Agency Comment Spec In Lab Anglea Swenson MD BLOOD BANK ORDERABLES Performing Organization Address City/[facility]/ZIP [place] [address] Gold Tube HOLD (07/27/2017 12:53 AM EST) P athologist Signature Gold Hold Sample in [facility]. [facility] Specimen Anatomical Collection Method Collection Time Receive d Time (Source) Location / / Volume Laterality Blood specimen Venous Draw / 07/27/2017 12:53 07/27/19 18 1:01 (specimen) Unknown AM EST AM EST Angela Swenson MD CHEMISTRY ORDERABLES Performing Organization Address City/State/[place] [address] (ABNORMAL) Differential, Automated (07/27/2017 12:53 AM EST) Patholo gist Method Time Signature Neutrophils % 75.0 % [facility] LABORATORY Neutr Abs (ANC) 11.30 (H) 1.70 - [facility] 6.10 [facility] x10(3)/[facility] LABORATORY Lymphocytes % 9.9 % [facility] LABOR[facility]ORY Lymphocytes Abs 1.5 0.9 - 3.2 [facility] x10(3)/[facility] LABORATORY Monocytes % 8.6 % [facility] LABOR[facility]ORY Monocyte Abs 1.3 (H) 0.3 - 0.9 [facility] x10(3)/[facility] LABORATORY Eosinophils % 4.8 % [facility]ORY Eosinophils Abs 0.7 (H) 0.0 - 0.4 [facility] x10(3)/[facility] LABORATORY Basophils % 0.8 % [facility]OR[facility]ORY Basophils Abs 0.1 0.0 - 0.1 [facility] x10(3)/[facility] LABORATORY Immature Gran % 0.90 % [facility] [...] Gran Abs 0.13 (H) 0.00 - 0.04 x10(3)/[facility] LABORATORY Specimen Anatomical Collection Method Collection Time Receive d Time (Source) Location / / Volume Laterality Blood specimen 07/27/2017 12:53 8 1:00 (specimen) AM EST AM EST Resulting Agency Comment Spec In Lab Angela Swenson MD HEMATOLOGY ORDERABLES Performing Organization Address City/State/[place] [address] (ABNORMAL) Hemogram (07/27/2017 12:53 AM EST) Analysis Performed At Patho logist Time Signature WBC 15.0 (H) 4.0 - 9.5 [facility] x10(3)/[facility] LABORATORY RBC 3.59 (L) 4.58 - [facility] 5.54 [facility] x10(6)/[facility] LABORATORY Hemoglobin 10.3 (L) 13.7 - [facility] 16.5 gm/dL [facility] Hematocrit 32.6 (L) 40.5 - [facility] 48.5 % [facility] MCV 90.8 82.9 - [facility] 93.1 [facility] LABORATORY MCH 28.7 27.5 - [facility] 32.1 pg [facility] MCHC 31.6 (L) 32.0 - [facility] 35.7 gm/dL [facility] Platelets 322 145 - 357 [facility] x10(3)/[facility] RDWSD 48.7 (H) 36.0 - [facility] 45.0 [facility] LABORATORY RDWCV 14.7 (H) 11.4 - [facility] 13.8 % [facility] LAB[facility]ORY MPV 8.9 7.6 - 12.9 [facility] LABORATORY nRBC % Auto 0.0 % [facility] LABORATORY nRBC Abs Auto 0.000 0.000 - [facility] 0.000 [facility] x10(3)/[facility] LABORATORY Specimen Anatomical Collection Method Collection Time Receive d Time (Source) Location / / Volume Laterality Blood specimen 07/27/2017 12:53 8 1:00 (specimen) AM EST AM EST Resulting Agency Comment Spec In Lab Angela Swenson MD HEMATOLOGY ORDERABLES Performing Organization Address City/State/ZIP [place] [address] Antibody screen (07/27/2017 12:53 AM EST) Patholo gist Method Time Signature Ab Screen Negative [facility] LABORATORY Expires at 07/30/2017 KATALINA ZHAORYAN [id number] on: [facility] Specimen Anatomical Collection Method Collection Time Receive d Time (Source) Location / / Volume Laterality Blood specimen 07/27/2017 12:53 8 (specimen) AM EST 12:58 AM EST Resulting Agency Comment Spec In Lab Angela Swenson MD BLOOD BANK ORDERABLES Performing Organization Address City/[facility]/ZIP [place] [address] ABO/Rh Typing (07/27/2017 12:53 [...] Performing Organization Address City/[facility] [place] [address] (ABNORMAL) Prothrombin Time (07/27/2017 [...] Organization Address City/State/[place] [address] (ABNORMAL) Basic Metabolic Panel (non-fasting) (07/27/2017 12:53 AM EST) athologist Signature Glucose Lvl 95 65 - 199 [facility] mg/dL [facility] Comment: Diabetes: >=200 mg/dL plus symp toms BUN 37 (H) 10 - 20 mg/dL [facility] Creatinine 1.49 0.80 - 1.50 mg/dL [facility] C[facility] LABORATORY Estimated GFR 46 (L) >=60 [facility] Comment: The reported eGFR should be multiplied b y 1.2 for patients. The MDRD is not an appropriate measure o f renal function for patients with body mass extremes or in patients with acute kidney failure. 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
Routine documented in this encounter Care Teams Settlement Agent Relationship Specialty Start Date End Date Lovely Vicente MD PCP - General 04/16/15 [facility] [address] [facility] [address] [place] [address] documented as of this encounter
--- OUTSIDE RECORDS SUMMARY | 2022-05-22 08:21 | XMS_ITS | Encounter Summary ---
:1945 [place] [address] Care Team Providers Name Role Phone Lovely Vicente MD Primary Care Provider Encounter Details Date Type Department Care Team Description 07/16/2017 Telephone Endocrinology at [facility] Manuela Holliday, [facility] [place] [address] ENDOCRINOLOGY DEPT [phone] [place], [place] [address] (Wo rk) Social History [...] MD [facility] [address] [place], [place] [address] (Wo rk) 05/28/2022 Laboratory Appointment Lab 05/28/2022 Office Visit Cardiology Zulma Dolan MD [facility] [place] [address] Liz Poole PA [facility] [place] [address] 06/10/2022 Office Visit Dermatology Laura Scherer MD [facility] [address] [place], [place] [address] (Wo rk) documented as of this encounter Visit Diagnoses Not on filedocumented in this encounter Care Teams Flat Drier Relationship Specialty Start Date End Date Lovely Vicente MD PCP - General 04/16/[address] [place] [address] documented as of this encounter
--- OUTSIDE RECORDS SUMMARY | 2022-05-22 08:21 | XMS_ITS | Encounter Summary ---
:1945 Author Organization [facility] [place] [address] Care Team Providers Name Role Phone Lovely Vicente MD Primary Care Provider Reason for Visit Reason Comments Follow-up Encounter Details Date Type Department Care Team Description 07/29/2017 Office Visit Cardiac Surgery at [facility] Yuan Retana MD S/P CABG x [address] [facility] [place] [address] CARDIOTHORACIC SURGERY [phone] [place], [place] [address] (Wo rk) Social History Tobacco [...] 07/29/2017 10:20 AM EST To: MD Lovely Setven MD Re: Don Fatima ( 1945) Dear [...] evaluation by vascular surgery. Yuan Retana MD [phone] documented in this encounter Plan of Treatment Upcoming Encounters Date Type Specialty Care Team Description 05/28/2022 Appointment Cardiology Zulma Dolan MD [facility] er [address] [place] [address] (Wo rk) 05/28/2022 Laboratory Appointment Lab 05/28/2022 Office Visit Cardiology Zulma Dolan MD [facility] [place] [address] Liz Poole PA [facility] [place] [address] 06/10/2022 Office Visit Dermatology Laura Scherer MD [facility] ER [address] [place], [place] [address] (Wo rk) documented as of this encounter Visit Diagnoses Diagnosis S/P CABG x 3 Postsurgical aortocoronary bypass status documented in this encounter Care Teams Associate Drafter Relationship Specialty Start Date End Date Lovely Vicente MD PCP - General 04/16/[address] [place] [address] documented as of this encounter
--- OUTSIDE RECORDS SUMMARY | 2022-05-22 08:21 | XMS_ITS | Encounter Summary ---
:1945 [place] [address] Care Team Providers Name Role Phone Lovely Vicente MD Primary Care Provider Reason for Visit Reason Onset Date Comments Questions 07/16/2017 fluid retention Encounter Details Date Type Department Care Team Description 07/16/2017 Telephone Cardiology at [facility] Martha Comer, Questions ([facility] RN retention ) [place] [address] Social History Tobacco Use Types Packs/Day [...] the direct number to the HF team ([phone]). She is aware of his appt with FISH CHECKER Hans on 07/21/17 and the need for labs prior to that visit. verbalized good understanding of the current POC. documented in this encounter Plan of Treatment Upcoming Encounters Date Type Specialty Care Team Description 05/28/2022 Appointment Cardiology Zulma Dolan MD [facility] [place], [place] [address] (Wo rk) 05/28/2022 Laboratory Appointment Lab 05/28/2022 Office Visit Cardiology Zulma Dolan MD [facility] [place] [address] Liz Poole PA [facility] [place] [address] 06/10/2022 Office Visit Dermatology Laura Scherer MD [facility] [address] [place], [place] [address] (Wo rk) documented as of this encounter Visit Diagnoses Not on filedocumented in this encounter Care Teams Alcoholic Counselor Relationship Specialty Start Date End Date Lovely Vicente MD PCP - General 04/16/[address] [place] [address] documented as of this encounter
--- OUTSIDE RECORDS SUMMARY | 2022-05-22 08:22 | XMS_ITS | Encounter Summary ---
:1945 Author Organization [place] [address] Care Team Providers Name Role Phone Lovely Vicente MD Primary Care Provider Encounter Details Date Type Department Care Team Description 07/08/2017 Orders Only [facility] [place] [address] Social History Tobacco Use Types Packs/Day [...] MD [facility] er [place], [place] [address] (Wo rk) 05/28/2022 Laboratory Appointment Lab 05/28/2022 Office Visit Cardiology Zulma Dolan MD [facility] [place] [address] Liz Poole PA [facility] [place] [address] 06/10/2022 Office Visit Dermatology Laura Scherer MD [facility] ER [address] [place] [address] (Wo rk) documented as of this encounter [...] Mccollum ? (Age): 1945(72y) Med Rec#: ? [id number] ?Sex: ?M ? Site Loc: ? Ht / Wt: ??(cm)/ (kg) ? Pt. Loc: ? Study Date: ?? 07/07/2017 ?Pt. Type: Tape: ? Referring: Yuan Retana Reading: Yifan Perez MD ([id number]) Performing: Yifan Perez MD ([id number]) Diagnosis: SUMMARY: 1. Intraoperative AVELINO performed at [...] ? Mid-Inferior ?Hypokinetic ? Mid-Inferoseptal ?Hypokinetic ? [place]-Septal ? Hypokinetic ? [place]-Anterior ? Hypokinetic ? [place]-Lateral ?Hypokinetic ? [place]-Inferior ? Hypokinetic ? [place]-Tip ?Not Seen ? This report has been electronically sign ed by: _ Yifan Perez MD ? 07/08/2017 12 :25:18 Images reviewed and interpretation verif ied [facility] Cardiac Ultrasound Laboratory Procedure Note Yifan Perez MD - 07/08/2017Formatt ing of this note might be different from the original. Procedure: Transesophageal Echocardiogra m Patient: NATALYA MCBRIDE(Age): [birth year]72y) Med Rec#: [id number] Sex: M Site Loc: Ht / Wt: (cm)/ (kg) Pt. Loc: Study Date: 07/07/2017 Pt. Type: Tape: Referring: Yuan Retana Reading: Yifan Perez MD ([id number]) Performing: Yifan Perez MD ([id number]) Diagnosis: SUMMARY: 1. Intraoperative AVELINO performed at [...] Hypokinetic Mid-Posterolateral Hypokinetic Mid-Inferior Hypokinetic Mid-Inferoseptal Hypokinetic [place]-Septal Hypokinetic [place]-Anterior Hypokinetic [place]-Lateral Hypokinetic [place]-Inferior Hypokinetic [place]-Tip Not Seen This report has been electronically sign ed by: _ Yifan Perez MD 07/08/2017 12:25:18 Images reviewed and interpretation elvie hwang [facility] Cardiac Ultrasound Laboratory Unknown ECHO ORDERABLES documented in this encounter Visit Diagnoses Not on filedocumented in this encounter Care Teams Pharmaceutical Service Representative Relationship Specialty Start Date End Date Lovely Vicente MD PCP - General 04/16/[address] [place] [address] documented as of this encounter
--- OUTSIDE RECORDS SUMMARY | 2022-05-22 08:22 | XMS_ITS | Encounter Summary ---
:1945 Author Organization [facility] [place] [address] Care Team Providers Name Role Phone Lovely Vicente MD Primary Care Provider Reason for Referral Consultation (Routine) - Closed Specialty Diagnoses / Referred By Contact Referred To Contact Procedures Cardiac Rehabilitation Diagnoses S/P CABG x 3 Yuan Webber, Cardiac Rehab, [address] [place] CARDIOTHORACIC [address] [place] [address] Referral ID Status Reason Start Date Expiration Date Visits V isits Requested Authorized [id number] Closed Consult, 07/14/2017 01/10/2018 36 36 Test & Treat Reason for Visit Auth/Cert Specialty Diagnoses / Procedures Referred By Contact Refer red To Contact Diagnoses STEMI (ST elevation myocardial infarction) NSTEMI STEMI Procedures CARDIAC CATHETERIZATION NAYE IPI Referral ID Status Reason Start Date Expiration Date Visits Requ ested Visits Authorized [id number] 1 1 Encounter Details Date Type Department Care Team Description 07/05/2017 - Hospital Encounter Cardiac Special Daphne Shahid MD [facility] [address] Non-ST elevation myocardial infarction ( NSTEMI); 07/14/2017 Care Unit Yuan Preciado MD [facility] [place] [address] S/P CABG x 3 [place] [id number] Social History Tobacco Use Types Packs/Day Years [...] @ 1:20p Patient to follow-up with Assistant Athletic Trainer/heart failure team in one week. An appointment will be made for you. You may call [phone] Patient to follow-up with Cardiac Surgery, Dr. Yuan Webber, in ~ 4 weeks with CXR, EKG. Inpatient Provider Contact Information: [facility] Section of Cardiac Surgery [facility] [address] FAX [phone] Discharge Diagnoses (Hospital Problems) Primary Diagnoses: CAD [...] performed by Manny Mcknight MD at [facility] MAIN OR ??? PRO CABG, ARTERIAL, SINGLE N/A 07/07/2017 @CABG, USING ARTERIAL GRAFT;SINGLE ARTERIAL GRAFT (WRVU 33.75) performed by Yuan Webber MD at [facility] MAIN OR ??? PRO CABG, ARTERY-VEIN, TWO N/A 07/07/2017 @CABG, TWO VENOUS GRAFTS & ARTERIAL GRAFT (WRVU 7.93) performed by Yuan Webber MD at [facility] MAIN OR ??? PRO COLONOSCOPY, REMV LESN, SNARE 01/16/2014 COLONOSCOPY, POLYPECTOMY, REMOVAL LESION BY SNARE performed by Nohemi Jaimes MD at [facility] ENDOSCOPY ??? PRO ENDOSCOPY W/VIDEO-ASST VEIN HARVEST, CABG Right 07/07/2017 ENDOSCOPIC HARVEST VEIN(S) FOR CABG (WRVU 0.31) performed by Yuan Webber MD at [facility] MAIN OR ??? PRO THYROIDECTOMY 03/28/2013 THYROIDECTOMY, TOTAL OR COMPLETE performed by Manny Mcknight MD at [facility] MAIN OR Prior To Admission Medications Prescriptions Prior to Admission Medication Sig Dispense Refill Last Dose ??? levothyroxine (SYNTHROID) 175 mcg Tablet Take 1 tablet by mouth daily. 90 tablet 3 07/05/2017 [id number] ??? ascorbic acid, vitamin C, (VITAMIN C) [...] hospital and ruled infor non-ST segment elevation NV. This almost certainly represents the residual of [...] Gregory Hoang was admitted to [facility] on 07/05/2017 via the Cardiology Service. During his hospital course, he was taken emergently to the dairy lab technician for an ongoing STEMI. An [...] not take or discontinue any prescription or dvtm-ptc-cvuckqr medications without asking your doctor or pharmacist [...] day to have your insulin doses adjusted. [facility] Endocrine clinic office [...] Yuan Webber and/or the Cardiac Surgery Physician Medical Csr Team may be reached at . Weight: [...] Dr. Yuan Webber. You may use a Wood Track or treadmill but avoid any pulling [...] with the surgeon. Do not ride motorcycles, [employer] tractors or horses. Avoid the use of [...] @ 1:20p Patient to follow-up with Assistant Athletic Trainer/heart failure team in one week. Appointment will be made for you. You may call [phone] Patient to follow-up with Cardiac Surgery, Dr. [...] THREE L Lab 3L [facility] [phone] 09/07/2017 4:00 PM Luz Prescott MD Endocrinology at [place] [phone] Future Orders Complete By Expires EKG 12 Lead [EKG1 Custom] 08/14/2017 02/13/2018 Process Instructions: Scheduling Instructions: Questions: Which location will this be performed?: [place] Is a rhythm strip needed?: No If EKG Reason is Pre-op Evaluation, indicate diagnosis for surgery.: XR Chest PA & Lateral (Generic) [[id number] Custom] 08/14/2017 02/13/2018 Process Instructions: Scheduling Instructions: Questions: Where will study be performed?: [place] [facility] Portable exam?: Reason for exam and clinical history: CABG x 3 Other pertinent information: Stat read required?: Date of injury if applicable: Requested Time: Referral to Cardiac Rehab [WGH077 Custom] As directed Process Instructions: If no progress note charted, please enter Clinical details in comments. Scheduling Instructions: Questions: My question or request is: s/p CABG. Cardiac rehab at [facility] Referral to Home Health - at DISCHARGE [XXB4534 CPT(R)] As directed Process Instructions: Scheduling Instructions: Comments: DOCUMENTATION FOR VNA SERVICES (INCLUDING THOSE PATIENTS WITH MEDICARE COVERAGE REQUIRING HOME VNA SERVICES AND/OR HOSPICE SERVICES) PATIENT'S LOCATION: Gregory Hoang [address] [place] [address] [place] [phone] (home) Telephone Information: Factorer's Name: self In discussion with the attending physician, it is certified that this patient is under their care and that they, or a Nurse Practitioner, or Physician Medical Csr who is working directly with them, had [...] (Central Intake for [place] [employer]-is in [place] PHONE: [phone] FAX: [phone] RN orders: Cardiopulmonary assessment, incisional assessment, assess vital signs, assessment of rehab progress, medication management and effectiveness, home safety evaluation. Please draw INR if indicated and send result to:Dr Vicente [phone] PT ORDERS: Continue rehab for endurance, gait stability and strength with mobility and transfers. Home safety evaluation. Home exercise program if appropriate. Start of Care Date:24-48 hours after discharge SPECIAL INSTRUCTIONS: For any follow up questions, needs, or issues please call the Cardiac Surgery Office at [phone] FOR MEDICARE ONLY: (please delete this section [...] [facility] Section of Cardiac Surgery [facility] [phone] FAX [phone] Date: 07/14/2017 CC: MD Ivania Cr Betsy, PA [address] [place] [phone] documented in this encounter Discharge Instructions Discharge [...] day to have your insulin doses adjusted. [facility] Endocrine clinic office [...] not take or discontinue any prescription or lzuz-tyw-jeinmme medications without asking your doctor or pharmacist [...] juice or regular (not diet) soda 6 [employer] small box of raisins 4 glucose tablets [...] day to have your insulin doses adjusted. [facility] Endocrine clinic office [...] Yuan Webber and/or the Cardiac Surgery Physician Medical Csr Team may be reached at . ?? [...] Dr. Yuan Webber. You may use a Wood Track or treadmill but avoid any pulling [...] with the surgeon. Do not ride motorcycles, [employer] tractors or horses. Avoid the use of [...] 1:20p ?? Patient to follow-up with Assistant Athletic Trainer/heart failure team in one week. An appointment has been made for you, you can call [phone] ?? Patient to follow-up with Cardiac Surgery, [...] THREE L Lab 3L [facility] [phone] ?? 09/07/2017 4:00 PM Luz Prescott MD Endocrinology at [place] [phone] Future Orders Complete By Expires ?? EKG 12 Lead [EKG1 Custom] 08/14/2017 02/13/2018 ?? Process Instructions: ? Scheduling Instructions: ? Questions: ? Which location will this be performed?: [place] ?? Is a rhythm strip needed?: No ?? If EKG Reason is Pre-op Evaluation, indicate diagnosis for surgery.: ?? XR Chest PA & Lateral (Generic) [[id number] Custom] 08/14/2017 02/13/2018 ?? Process Instructions: ? Scheduling Instructions: ? Questions: ? Where will study be performed?: [place] [facility] ?? Portable exam?: ?? Reason for exam and clinical history: CABG x 3 ?? Other pertinent information: ?? Stat read required?: ?? Date of injury if applicable: ?? Requested Time: ?? Referral to Cardiac Rehab [JCB545 Custom] As directed ? Process Instructions: ?? [...] referrals are placed. Patient requests referral to [facility] PHONE: [phone] FAX: [phone] Expected date of discharge: 07/14 Referral routed to the [facility] for matching with agency/vendor and to provide [...] day to have your insulin doses adjusted. [facility] Endocrine clinic office Kathie Carrera APRN [facility] Endocrinology Diabetes Management Pager [phone] 20 minutes of this 35 minute visit [...] ([facility] [place] [employer] [place]) PHONE: [phone] FAX: [phone]. Expected date of discharge: 07/14/17 Referral routed to the [employer] [facility] for matching with agency/vendor and to provide [...] Will continue to follow Katerin Azul APRN [facility] Endocrinology Diabetes Management Pager [phone] 15 minutes of this 25 minute visit [...] of infiltration/extravasation Discussed plan of care with UTILITY REPAIRER and RN. Elevate exrtemity and apply intermittent Warm compresses. Name of MD contacted Dr. Shaw Brown 07/13/2017 @ 0669 Name of RN contacted Ale Rangel RN Name of Pharmacist if consulted NA Name of Plastics MD ( if consulted) NA (Mandatory photo for infiltrations/ extravasations scoring a stage 2 or greater, but recommended forstage 1)( include measuring tape and identifier in the photo) CLIENT SOLUTIONS SPECIALIST CARING FOR THIS PATIENT WILL CONTINUE [...] measuring tape and identifier in the photo) CLIENT SOLUTIONS SPECIALIST CARING FOR THIS PATIENT WILL CONTINUE [...] regard to both infiltrates addressed by this screenplay writer.All of Mr. Hoang's responses were entirely appropriate. Images of infiltrates attached here. Martha Sharp APRN - 07/13/2017 8:01 AM EST Cardiac Surgery Progress Note: ID: [id number] 72 year old male POD#6 s/p CABGx3 [...] discharge planning needs. I have provided the [facility], Office of Care Management letter from the Search Engine Marketing Manager pertaining to rehab referrals. I have also provided a letter describing our affiliations within the [facility] and educated them about their right [...] date of discharge: 07/14 Note routed to [facility] who will communicate referrals to facilities and [...] hours. If BG remains greater than 240, sigqoa20 units (no more than three times) & [...] hours. If BG remains greater than 240, oxnevy57 units (no more than three times) & call for new basal insulin orders. ??If less than 240 after two hours, give no insulin and resume prior schedule. Will continue to follow Katerin Patel. STACIE Azul [facility] Endocrinology Diabetes Management Pager [phone] minutes of this 35 minute visit was spent with the patient in counseling on diabetes and treatment plan, reviewing all glucose and insulin data as well as relevant laboratory results with the patient, and coordination of care on the inpatient unit including nursing and primary team. Makayla Stevenson APRN - 07/12/2017 9:52 AM EST Cardiac Surgery Progress Note: ID: [id number] 72 year old male POD#5 s/p CABGx3 [...] for HTN, CHF, CAD, nSTEMI, IDDM, MARIA VITCORIA, BPH, thyroid carcinoma s/p thyroidectomy melanoma Continue [...] AM EST Cardiac Surgery Progress Note: ID: [id number] 72 year old male POD#4 s/p CABGx3 [...] hours. If BG remains greater than 240, aeqhwa92 units (no more than three times) & [...] AM EST Cardiac Surgery Progress Note: ID: [id number] 72 year old male POD#3 s/p CABGx3 [...] Gas) No results found for: PHART, PO2ART, ZMQ1JFQ Assessment/Plan: 72 year old male POD#3 s/p [...] Encounter Note Patient Name: Gregory Hoang : [id number] MR#: [id number] Admit Date: 07/05/2017 4:20 PM Hospital Day 4 days Narrative: Patient was sitting in chair, hugging heart pillow, opened his eyes, nodding to come into room Assessment: Patient was sleepy. Intervention and Outcome: Introduced human resources records clerk services and patient reached his hand out in appreciation. Follow-up: Dental Hygiene Administrative Assistant remains available for support. Time in [...] 07/09/2017 10:45 AM EST Report given to full time staff interpreter to cover care Maddison Cee PA - 07/09/2017 9:00 AM EST Cardiac Surgery Progress Note: ID: [id number] 72 year old male POD#2 s/p CABGx3 [...] on rounds. Signed: STEPHANIE Iqbal [facility] Section of Cardiac Surgery Date: 07/09/2017 Magnolia Santiago [facility] - 07/09/2017 1:[address] ICU [...] when IABP d/c'ed. Gretchen Carolina, PT Pager [phone] Maddison Cee PA - 07/08/2017 11:27 AM EST Cardiac Surgery Progress Note: ID: [id number] 72 year old male POD#1 s/p CABGx3 [...] on rounds. Signed: STEPHANIE Iqbal [facility] Section of Cardiac Surgery Date: 07/08/2017 Nick [...] unit. NICK SEGAL MD 07/08/2017 Jay Munoz [facility] - 07/08/2017 4:[address] Surgery [...] in place in R femoral. No hematoma. SOD CUTTER- Intact Psych- Anxious Skin- Dry, no [...] intact. IABP in place in R femoral. SOD CUTTER- Intact Psych- Anxious Skin- Dry, no [...] note for details. DAPHNE SHAHID MD Pager [phone] Jet Mckenna MD - 07/05/2017 6:48 PM EST Preliminary Cardiac Catheterization Procedure Note: Procedure(s) performed: Left heart cath, IABP insertion Access: Right CAMPGROUND MANAGER-->8fr IABP A time-out was conducted prior [...] effect. Heparin gtt maintained. Pt transferred to dairy lab technician. documented in this encounter H&P Notes Daphne Shahid MD - 07/05/2017 6:08 PM EST CARDIOLOGY HISTORY & PHYSICAL EXAM Date of Admission: 07/05/2017 ( Hospital Day 0 days ) Responsible Attending: Daphne Shahid MD PCP: Lovely Vicente MD PCP#: [phone] Patient Active Problem List Diagnosis Code ??? [...] No significant valvular disease. Taken to the dairy lab technician urgently for ongoing STEMI. [facility] Labs: [...] monitor I/O - s/p lasix in the dairy lab technician, redose to aim net neg [...] - ISS - hold metformin - f/u [facility] #Home Meds - continue levothyroxine 175mcg - CPAP at night # Routine - DVT PPx: heparin drip - Diet: NPO - Code Status: FULL - Dispo: [facility] Cedric Bey MD Internal Medicine, PGY-2 Cardiology S1, Team Pager # [phone] CARDIOLOGY ATTENDING NOTE Patient: Gregory Hoang Date [...] amenable for PCI. DAPHNE SHAHID MD Pager [phone] documented in this encounter Miscellaneous Notes Consult Note - Daphne Shahid MD - 07/14/2017 11:46 AM EST Heart Failure Service Inpatient Consult Note Gregory Hoang Date of : 1945 Age: 72 y.o. Today's date: 07/14/17 PCP: Lovely Vicente MD LOADER TECHNICIAN: None Place of Service: [facility] Reason for Consult: Dr. Webber [...] performed by Manny Mcknight MD at [facility] MAIN OR ??? PRO CABG, ARTERIAL, SINGLE N/A 07/07/2017 @CABG, USING ARTERIAL GRAFT;SINGLE ARTERIAL GRAFT (WRVU 33.75) performed by Yuan Webber MD at [facility] MAIN OR ??? PRO CABG, ARTERY-VEIN, TWO N/A 07/07/2017 @CABG, TWO VENOUS GRAFTS & ARTERIAL GRAFT (WRVU 7.93) performed by Yuan Webber MD at [facility] MAIN OR ??? PRO COLONOSCOPY, REMV LESN, SNARE 01/16/2014 COLONOSCOPY, POLYPECTOMY, REMOVAL LESION BY SNARE performed by Nohemi Jaimes MD at [facility] ENDOSCOPY ??? PRO ENDOSCOPY W/VIDEO-ASST VEIN HARVEST, CABG Right 07/07/2017 ENDOSCOPIC HARVEST VEIN(S) FOR CABG (WRVU 0.31) performed by Yuan Webber MD at [facility] MAIN OR ??? PRO THYROIDECTOMY 03/28/2013 THYROIDECTOMY, TOTAL OR COMPLETE performed by Manny Mcknight MD at [facility] MAIN OR Outpt Meds: Current [...] following studies: EKG 07/14/17: NSR 75 bpm, TARIFF COMPILER anterior infarct, LAD CXR 07/11/17: FINDINGS: Sternotomy wires. The patient has been extubated, left chest tube removed, and [place]uzi catheter removed since the 07/07/2017 study. Atelectasis [...] was discussed with Zehra. Jaden Kelley MD School Lunch Monitor Pager [phone] CARDIOLOGY ATTENDING NOTE Patient: Gregory Hoang Date [...] heart failure clinic. DAPHNE SHAHID MD Pager [phone] Plan of Care - Alden Chavarria, POUNCING LATHE OPERATOR - 07/14/2017 11:35 AM EST Problem: [...] Discharge Disposition: home with assist Alden Chavarria, POUNCING LATHE OPERATOR Pager: [phone] Inpatient Physical Therapy Problem: Acute Rehab Services [...] sit/sit to supine -- Bed Mobility Goal, [place]far[place] Level supervision required -- Bed Mobility Goal, [...] - 3 days -- Gait Training Goal, [place]far[place] Level supervision required -- Gait Training Goal, [...] days -- Transfer Training Goal, Activity Type nyb-if-lfrum/qotbf-vi-bas;ymy-ck-mazfs/xfxvj-ib-cwb;toilet -- Transfer Train Goal, [place]far[place] Level supervision required -- Transfer Training Goal, [...] keeping present for 2 days per family. Technical Specialist noted of frustrations, house keeping sent to room. Patient offered showered twice, refused. at bedside, frustrated that shower not complete, informed that patient had refused several times. requesting to see CABLE ENGINEER, paged sent to Martha, will come to bedside (middle of consult). not willing to wait, Martha notified that family had gone home. Encouraged to come for morning rounds a t 8am. Diabetes team at bedside - insulin adjustments made. Call cabello in reach. Continue to monitor. PLAN MOVING FORWARD: Ambulate, dressing changes BID, Please change drsg at 4am per Martha CABLE ENGINEER request. INDIVIDUALIZED FALL PREVENTION INTERVENTIONS: Patient-specific [...] levels on the lower side, 60ml of Rozet juice given after a FS of 80. [...] 07/13/17 0502 Interdisciplinary Rounds/Family Conf Participants case resolution specialist;dietitian/nutrition services;nursing;occupational therapy;patient;pharmacy;physical therapy;physician Plan of Care [...] Anticipated Discharge Disposition: home with assist Pager: [phone] CLARISSA SEGAL, PT 07/12/2017 Physical Therapy Rehabilitation [...] to sit/sit to supine Bed Mobility Goal, [place]far[place] Level supervision required Bed Mobility Goal, Additional Goal adheres to psternal precautions for transfer Goal: Gait Training Goal Stand Alone Therapy Goal Outcome: Ongoing (Interventions Implemented as Appropriate) 07/12/17 1225 Gait Training Goal Gait Training Goal, Date Established 07/12/17 Gait Training Goal, Time to Achieve 2 - 3 days Gait Training Goal, [place]far[place] Level supervision required Gait Training Goal, Assist [...] 3 days Transfer Training Goal, Activity Type rbk-eh-hxqiy/usjbc-hv-tpa;ekg-hr-ycqmj/uhley-ri-rob;toilet Transfer Train Goal, [place]far[place] Level supervision required Transfer Training Goal, Additional Goal adheres to sternal precautions during transfer Consult Note - Octavia Vaughn RN - 07/12/2017 10:[address] [facility] CARDIAC REHABILITATION Gregory [...] IV site, amio to other piv and TIRE INSTALLER at bedside to help assess, IV [...] Ongoing (Interventions Implemented as Appropriate) 07/11/17199907/11/17200907/12/17 [facility] Daily Care Interventions Self-Care Promotion [...] staff, he stood and marched in place. [place] weak, wanting to sit back down. Remained [...] Outcome: Ongoing (Interventions Implemented as Appropriate) 07/05/17 4339 Mutuality/Individual Preferences What Anxieties, Fears or Concerns [...] Health/Prescription Coverage: Primary Insurance: MEDICARE Secondary Insurance: [place] Prescription Coverage: yes Preferred Pharmacy: [facility] [place] Other: none Primary Care Provider: Lovely Vicente MD [phone] Patient/Caregiver Goals of Treatment:live and get my breath back Potential Needs for Transition of Care: Rehab/SNF: [facility]; [facility] Home Health: NA DME: TBD Dialysis: na Community Resources: available Transportation: yes Other: none Anticipated Barriers to Discharge/Special Considerations: none Plan: Likely SNF Rehab before home A member of the Care Management team will continue to monitor progress, follow for continuity of care and assist with transition of care planning. ERLIN Weiss Pager: [phone] Consult Note - Katerin Azul RN - [...] potential to d/c gtt and start CF. base loader diabetes care: Medications - Outpatient treatment regimen recommendations pending based on the hospital course. Monitoring - continue BG tid ac & hs Diet - low fat/low carb diet Exercise - weight-bearing exercise 30 min/day, as tolerated Thank you for allowing us to provide care for your patient W/E coverage, Dr. Jeane Tatum, pager [phone] Katerin Patel. STACIE Azul Endocrinology Diabetes Management Pager [phone] Plan of Care - Stephanie Godoy RN [...] Webber MD - 07/07/2017 6:[address] [facility] Operative Note Patient Name: Gregory Hoang : [id number] MR#: [id number] Case Date: 07/07/2017 Surgeon: Surgeon(s) and Role: * Yuan Webber MD - Primary * Michael Drake PA - Physician Medical Csr * Linda Flores PA - Physician Medical Csr Preoperative diagnosis: 3VD Postoperative diagnosis: CAD, severe [...] Operative Note Patient Name: Gregory Hoang : [id number] MR#: [id number] Case Date: 07/07/2017 Surgeon: Surgeon(s) and Role: * Yuan Webber MD - Primary * Michael Drake PA - Physician Medical Csr * Linda Flores PA - Physician Medical Csr Preoperative diagnosis: 3VD Postoperative diagnosis: CAD, severe [...] major CV events such as , stroke, NV, repeat revascularization compared to PCI). In this [...] code status: Full Code Katty Davidjose, MS3 [facility] at [facility] Cardiology S1 (Pager [phone]) Plan of Care - Emelia Ibarra RN [...] hospital and ruled infor non-ST segment elevation NV. This almost certainly represents the residual of [...] performed by Manny Mcknight MD at [facility] MAIN OR ??? PRO COLONOSCOPY, REMV LESN, SNARE 01/16/2014 COLONOSCOPY, POLYPECTOMY, REMOVAL LESION BY SNARE performed by Nohemi Jaimes MD at [facility] ENDOSCOPY ??? PRO THYROIDECTOMY 03/28/2013 THYROIDECTOMY, TOTAL OR COMPLETE performed by Manny Mcknight MD at [facility] MAIN OR Social History: Social [...] and communicating with other involved physicians Yuan eWbber MD [phone] Med Student Progress Note - Katty Hahn [...] major CV events such as , stroke, NV, repeat revascularization compared to PCI). In this [...] or BiPAP - s/p lasix in the dairy lab technician, was net -1.5L - s/p [...] [facility] Cardiology S1 (Pager [phone]) Plan of Care - Stephanie Godoy RN [...] in urinal without difficulty. Lasix given in dairy lab technician, 1.4 L out at this [...] Zulma Dolan MD [facility] [address] [place], [place] [address] (Wo lissa) 05/28/2022 Laboratory Appointment Lab 05/28/2022 Office Visit Cardiology Zulma Dolan MD [facility] [place] [address] Liz Poole PA [facility] [address] 06/10/2022 Office Visit Dermatology Laura Scherer MD [facility] [address], [place] [address] (Wo rk) Scheduled Orders Name [...] procedure are i n the results section. CLEANING TECHNICIAN SCAN 07/15/2017 12:00 Res ults for [...] Routine 07/08/2017 4:00 Results f or this ([facility]/CG) AM EST procedure [...] Routine 07/06/2017 7:40 Results f or this ([facility]/CGP) PM EST procedure [...] section. TYPE AND SCREEN Routine 07/06/2017 12:00 ([facility]/CGP/SHANDA) PM EST APTT [...] Routine 07/06/2017 8:10 Results f or this ([facility]. [facility] AM EST procedure [...] Routine 07/05/2017 8:20 Results f or this ([facility] PM EST procedure [...] Timed 07/05/2017 4:55 Results f or this ([facility] PM EST procedure [...] 2017 EXAMINATION: XR CHEST PA AND LATERAL ([facility]) CLINICAL HISTORY: CABG x 3 TECHNIQUE: PA [...] Teague APRN IMG DX ORDERABLES SCAN DOC: CLEANING TECHNICIAN (07/15/2017 12:00 AM EST) Narrative 07/15/2017 [...] Signature POC Glucose 186 65 - 199 [facility] mg/dL [facility] Comment: Supplemental [...] Address City/[facility]/[place] [address] POCT Glucose (07/14/2017 7:52 AM EST) athologist Signature POC Glucose 126 65 - 199 [facility] mg/dL [facility] Comment: Supplemental ranges: <140 mg/dL before meals <180 mg/dL all other times of the day Specimen Anatomical Collection Method Collection Time Receive d Time (Source) Location / / Volume Laterality Blood specimen 07/14/2017 7:52 AM 017 7:52 (specimen) EST AM EST Yuan Webber MD POINT OF CARE TEST ORDERABLE S Performing Organization Address City/State/[place] [address] (ABNORMAL) Prothrombin Time (07/14/2017 [...] Wilson APRN HEMATOLOGY ORDERABLES Performing Organization Address City/[facility]/[place] [address] Potassium (07/14/2017 4:46 AM EST) athologist Signature Potassium 4.3 3.5 - 5.0 [facility] mmol/L [facility] Comment: Please [...] Wilson APRN CHEMISTRY ORDERABLES Performing Organization Address City/[facility]/[place] [address] POCT Glucose (07/14/2017 4:34 AM EST) athologist Signature POC Glucose 115 65 - 199 [facility] mg/dL [facility] Comment: Supplemental [...] City/State/ZIP Code Phon e Number [place] [id number] POCT Glucose (07/13/2017 11:33 PM EST) athologist Signature POC Glucose 132 65 - 199 [place] mg/dL [facility] [...] Address City/State/ZIP Code Phon e Number [address] POCT Glucose (07/13/2017 9:25 [...] Address City/State/ZIP Code Phon e Number [address] POCT Glucose (07/13/2017 4:55 PM EST) athologist Signature POC Glucose 79 65 - 199 [place] mg/dL [facility] [...] Organization Address City/State/[place] [address] POCT Glucose (07/13/2017 11:16 AM EST) athologist Signature POC Glucose 163 65 - 199 [facility] mg/dL [facility] Comment: Supplemental [...] Address City/State/ZIP Code Phon e Number [address] POCT Glucose (07/13/2017 8:07 AM EST) athologist Signature POC Glucose 96 65 - 199 [facility] mg/dL [facility] Comment: Supplemental [...] Address City/State/ZIP Code Phon e Number [address] (ABNORMAL) Prothrombin Time (07/13/2017 [...] Organization Address City/State/[place] [address] (ABNORMAL) Basic Metabolic Panel (non-fasting) (07/13/2017 4:26 AM EST) athologist Signature Glucose Lvl 95 65 - 199 [facility] mg/dL [facility] Comment: Diabetes: [...] or in patients with acute kidney failure. [email or web address] [email or web address] Specimen Anatomical Collection Method Collection Time Receive d Time (Source) Location / / Volume Laterality Blood specimen 07/13/2017 4:26 AM 017 4:46 (specimen) EST AM EST Resulting Agency Comment Spec In Lab Makayla Wilson APRN CHEMISTRY ORDERABLES Performing Organization Address City/[facility]/ZIP Code Phon e Number [address] POCT Glucose (07/13/2017 3:52 AM EST) athologist Signature POC Glucose 93 65 - 199 [facility] [place] mg/dL [facility] Comment: [...] Address City/[facility]/ZIP Code Phon e Number [address] POCT Glucose (07/13/2017 12:21 AM EST) athologist Signature POC Glucose 80 65 - 199 [place] mg/dL [facility] [...] Address City/[facility]/[place] [address] POCT Glucose (07/12/2017 8:22 PM EST) athologist Signature POC Glucose 119 65 - 199 [place] mg/dL [facility] [...] Address City/State/ZIP Code Phon e Number [address] POCT Glucose (07/12/2017 4:02 [...] Address City/State/ZIP Code Phon e Number [address] POCT Glucose (07/12/2017 11:28 AM EST) athologist Signature POC Glucose 164 65 - 199 [facility] [place] mg/dL [facility] Comment: [...] Address City/State/ZIP Code Phon e Number [address] POCT Glucose (07/12/2017 7:34 AM EST) athologist Signature POC Glucose 109 65 - 199 [facility] [place] mg/dL [facility] Comment: [...] Organization Address City/State/[place] [address] (ABNORMAL) Basic Metabolic Panel (non-fasting) (07/12/2017 4:11 AM EST) P athologist Signature Glucose Lvl 92 65 - 199 [facility] mg/dL [facility] Comment: Diabetes: [...] or in patients with acute kidney failure. [email or web address] [email or web address] Specimen Anatomical Collection Method Collection Time Receive d Time (Source) Location / / Volume Laterality Blood specimen 07/12/2017 4:11 AM 017 8:57 (specimen) EST AM EST Resulting Agency Comment Spec In Lab Makayla Wilson APRN CHEMISTRY ORDERABLES Performing Organization Address City/State/[place] [address] (ABNORMAL) Prothrombin Time (07/12/2017 [...] [place] STACIE HEMATOLOGY ORDERABLES Performing Organization Address City/[facility]/[place] [address] Potassium (07/12/2017 4:11 AM EST) athologist Signature Potassium 3.8 3.5 - 5.0 [facility] mmol/L [facility] Comment: Please [...] Agency Comment Spec In Lab Makayla Dejesusfield COMPUTER REPAIR TECHNICIAN CHEMISTRY ORDERABLES Performing Organization Address City/[facility]/[place] [address] POCT Glucose (07/12/2017 4:10 AM EST) athologist Signature POC Glucose 90 65 - 199 [facility] mg/dL [facility] Comment: Supplemental [...] Address City/State/ZIP Code Phon e Number [address] POCT Glucose (07/11/2017 11:57 PM EST) athologist Signature POC Glucose 98 65 - 199 [facility] mg/dL [facility] Comment: Supplemental [...] Address City/State/ZIP Code Phon e Number [address] POCT Glucose (07/11/2017 8:32 PM EST) athologist Signature POC Glucose 146 65 - 199 [facility] mg/dL [facility] Comment: Supplemental ranges: <140 mg/dL before meals <180 mg/dL all other times of the day Specimen Anatomical Collection Method Collection Time Receive d Time (Source) Location / / Volume Laterality Blood specimen 07/11/2017 8:32 PM 017 8:32 (specimen) EST PM EST Yuan Webber MD POINT OF CARE TEST ORDERABLE S Performing Organization Address City/State/[place] [address] XR Chest PA & [...] e xtubated, left chest tube removed, and [place]-Suzi catheter removed since the study. Atelectasis at [...] e xtubated, left chest tube removed, and [place]Suzi catheter removed since the study. Atelectasis at [...] Address City/State/ZIP Code Phon e Number [address] POCT Glucose (07/11/2017 11:55 [...] Address City/[facility]/ZIP Code Phon e Number [address] POCT Glucose (07/11/2017 7:53 [...] Organization Address City/State/[place] [address] POCT Glucose (07/11/2017 4:22 [...] Address City/[facility]/[place] [address] Potassium (07/11/2017 2:20 AM EST) athologist Signature Potassium 4.5 3.5 - 5.0 [facility] mmol/L [facility] Comment: Please [...] Webber MD CHEMISTRY ORDERABLES Performing Organization Address City/[facility]/[place] [address] POCT Glucose (07/11/2017 12:17 [...] Address City/[facility]/[place] [address] POCT Glucose (07/10/2017 8:47 [...] Organization Address City/State/[place] [address] POCT Glucose (07/10/2017 4:06 [...] Address City/[facility]/[place] [address] POCT Glucose (07/10/2017 3:08 [...] Organization Address City/State/[place] [address] POCT Glucose (07/10/2017 2:25 PM EST) athologist Signature POC Glucose 146 65 - 199 [facility] [place] mg/dL [facility] Comment: [...] Address City/State/ZIP Code Phon e Number [address] POCT Glucose (07/10/2017 1:23 PM EST) P athologist Signature POC Glucose 166 65 - 199 [place] mg/dL [facility] [...] Address City/[facility]/ZIP Code Phon e Number [address] POCT Glucose (07/10/2017 11:52 [...] Address City/[facility]/[place] [address] POCT Glucose (07/10/2017 11:01 AM EST) P athologist Signature POC Glucose 158 65 - 199 [place] mg/dL [facility] [...] Address City/State/ZIP Code Phon e Number [address] POCT Glucose (07/10/2017 9:54 [...] Address City/[facility]/ZIP Code Phon e Number [address] POCT Glucose (07/10/2017 8:58 AM EST) athologist Signature POC Glucose 183 65 - 199 [place] mg/dL [facility] [...] Address City/State/ZIP Code Phon e Number [address] POCT Glucose (07/10/2017 8:01 AM EST) athologist Signature POC Glucose 173 65 - 199 [facility] [place] mg/dL [facility] Comment: [...] Address City/State/ZIP Code Phon e Number [address] POCT Glucose (07/10/2017 7:05 [...] Address City/State/ZIP Code Phon e Number [address] POCT Glucose (07/10/2017 6:00 AM EST) athologist Signature POC Glucose 162 65 - 199 [facility] mg/dL [facility] Comment: Supplemental ranges: <140 mg/dL before meals <180 mg/dL all other times of the day Specimen Anatomical Collection Method Collection Time Receive d Time (Source) Location / / Volume Laterality Blood specimen 07/10/2017 6:00 AM 017 6:00 (specimen) EST AM EST Yuan Webber MD POINT OF CARE TEST ORDERABLE S Performing Organization Address City/State/[place] [address] (ABNORMAL) Differential, Automated (07/10/2017 4:28 AM EST) [facility] gist Method Time Signature Neutrophils % 87.9 % [facility] Neutr Abs (ANC) 10.70 (H) 1.70 - [facility] 6.10 [facility] x10(3[facility] LAB[facility]ATORY Lymphocytes % 3.9 % [facility] Lymphocytes Abs 0.5 (L) 0.9 - 3.2 [facility] x10(3)/[facility] LABORATORY Monocytes % 7.0 % [facility] Monocyte Abs 0.8 0.3 - 0.9 [facility] x10(3)/[facility] LABORATORY Eosinophils % 0.3 % [facility] Eosinophils Abs 0.0 0.0 - 0.4 [facility] x10(3)/[facility] LABORATORY Basophils % 0.2 % [facility] Basophils Abs 0.0 0.0 - 0.1 [facility] x10(3)/[facility] LABORATORY Immature Gran % 0.70 % [facility] [...] Organization Address City/State/[place] [address] (ABNORMAL) Hemogram (07/10/2017 4:28 AM EST) Analysis Performed At Patho logist Time Signature WBC 12.2 (H) 4.0 - 9.5 [facility] x10(3)/[facility] LABORATORY RBC 3.31 (L) 4.58 - [facility] 5.54 [facility] x10(6)/[facility] LABORATORY Hemoglobin 9.8 (L) 13.7 - [facility] 16.5 gm/dL [facility] Hematocrit 30.0 (L) 40.5 - [facility] 48.5 % [facility] MCV 90.6 82.9 - [facility] 93.1 fL [facility] MCH 29.6 27.5 - [facility] 32.1 pg [facility] MCHC 32.7 32.0 - [facility] 35.7 gm/dL [facility] Platelets 135 (L) 145 - 357 [facility] x10(3)/[facility] LABORATORY RDWSD 50.8 (H) 36.0 - [facility] 45.0 [facility] LABORATORY RDWCV 15.4 (H) 11.4 - [facility] 13.8 % [facility] MPV 10.0 7.6 - 12.9 [facility] LABORATORY nRBC % Auto 0.0 % [facility] nRBC Abs Auto 0.000 0.000 - [facility] 0.000 [facility] x10(3)/[facility] LABORATORY Specimen Anatomical Collection Method Collection Time Receive d Time (Source) Location / / Volume Laterality Blood specimen 07/10/2017 4:28 AM 017 4:36 (specimen) EST AM EST Resulting Agency Comment Spec In Lab Yuan Webber MD HEMATOLOGY ORDERABLES Performing Organization Address City/State/[place] [address] (ABNORMAL) Basic Metabolic Panel (non-fasting) (07/10/2017 4:28 AM EST) athologist Signature Glucose Lvl 178 65 - 199 [facility] mg/dL [facility] Comment: Diabetes: [...] or in patients with acute kidney failure. [email or web address] [email or web address] Specimen Anatomical Collection Method Collection Time Receive d Time (Source) Location / / Volume Laterality Blood specimen 07/10/2017 4:28 AM 017 4:36 (specimen) EST AM EST Resulting Agency Comment Spec In Lab Yuan Webber MD CHEMISTRY ORDERABLES Performing Organization Address City/[facility]/ZIP Code Phon e Number [address] POCT Glucose (07/10/2017 4:26 AM EST) P athologist Signature POC Glucose 176 65 - 199 [facility] mg/dL [facility] Comment: Supplemental ranges: <140 mg/dL before meals <180 mg/dL all other times of the day Specimen Anatomical Collection Method Collection Time Receive d Time (Source) Location / / Volume Laterality Blood specimen 07/10/2017 4:26 AM 017 4:26 (specimen) EST AM EST Yuan Webber MD POINT OF CARE TEST ORDERABLE S Performing Organization Address City/State/[place] [address] (ABNORMAL) POCT Glucose (07/10/2017 3:06 AM EST) P athologist Signature POC Glucose 204 (H) 65 - 199 [facility] mg/dL [facility] Comment: Supplemental [...] Address City/[facility]/[place] [address] (ABNORMAL) POCT Glucose (07/10/2017 2:10 AM EST) P athologist Signature POC Glucose 203 (H) 65 - 199 [place] mg/dL [facility] [...] Address City/[facility]/[place] [address] POCT Glucose (07/10/2017 1:09 AM EST) P athologist Signature POC Glucose 196 65 - 199 [place] mg/dL [facility] [...] Organization Address City/State/[place] [address] POCT Glucose (07/10/2017 12:10 [...] Address City/State/ZIP Code Phon e Number [address] POCT Glucose (07/09/2017 11:01 PM EST) athologist Signature POC Glucose 140 65 - 199 [place] mg/dL [facility] [...] Address City/[facility]/ZIP Code Phon e Number [address] POCT Glucose (07/09/2017 10:05 PM EST) athologist Signature POC Glucose 144 65 - 199 [place] mg/dL [facility] [...] Organization Address City/State/[place] [address] POCT Glucose (07/09/2017 9:31 [...] Address City/State/ZIP Code Phon e Number [address] POCT Glucose (07/09/2017 9:03 [...] Address City/State/ZIP Code Phon e Number [address] POCT Glucose (07/09/2017 8:09 [...] Address City/State/ZIP Code Phon e Number [address] POCT Glucose (07/09/2017 5:40 PM EST) athologist Signature POC Glucose 155 65 - 199 [facility] mg/dL [facility] Comment: [...] Address City/State/ZIP Code Phon e Number [address] POCT Glucose (07/09/2017 4:24 [...] Address City/[facility]/ZIP Code Phon e Number [address] POCT Glucose (07/09/2017 3:19 PM EST) athologist Signature POC Glucose 166 65 - 199 [place] mg/dL [facility] [...] Address City/[facility]/[place] [address] POCT Glucose (07/09/2017 2:26 PM EST) athologist Signature POC Glucose 179 65 - 199 [place] mg/dL [facility] [...] Organization Address City/State/[place] [address] (ABNORMAL) POCT Glucose (07/09/2017 1:29 PM EST) P athologist Signature POC Glucose 210 (H) 65 - 199 [facility] mg/dL [facility] Comment: [...] Organization Address City/State/[place] [address] POCT Glucose (07/09/2017 12:20 PM EST) athologist Signature POC Glucose 172 65 - 199 [facility] mg/dL [facility] Comment: [...] Organization Address City/State/[place] [address] POCT Glucose (07/09/2017 11:24 AM EST) athologist Signature POC Glucose 156 65 - 199 [facility] mg/dL [facility] Comment: [...] Organization Address City/State/[place] [address] POCT Glucose (07/09/2017 11:11 [...] Address City/State/ZIP Code Phon e Number [address] POCT Glucose (07/09/2017 10:08 [...] Address City/State/ZIP Code Phon e Number [address] POCT Glucose (07/09/2017 8:02 [...] Organization Address City/State/[place] [address] (ABNORMAL) BLOOD GAS 2 ARTERIAL (07/09/2017 5:37 AM EST) Analysis Performed At Patho logist Time Signature pH Art 7.36 7.35 - [facility] 7.45 [facility] pCO2 Art 38 35 - 45 [facility] mmHg [facility] pO2 Art 79 (L) 85 - 104 [facility] LABORATORY HCO3 Art 20.9 20.0 - [facility] 26.0 [facility] mmol/L [facility] LABORATORY BE Art -4.6 (L) -3.0 - 3.0 [facility] mmol/L [facility] Hgb Blood Gas 10.5 (L) 13.7 - [facility] 16.5 gm/dL [facility] O2HB Art 93.8 (L) 94.0 - [facility] 97.0 % [facility] COHB Art 0.3 % [facility] Comment: Nonsmokers: 0.5-1.5% COHB Smokers: Variable, but usually less than 10% Toxic: 20-30% COHB Lethal: Greater than 60% COHB METHB Art 0.6 <=1.5 % [facility] Na Whole Blood 141 135 [...] Whole Bld 175 65 - 199 mg/dL [facility] Comment: Diabetes: >=200 mg/dL plus symp toms. Lactate WB 1.0 0.5 - 2.2 mmol/L [facility] LAB[facility]ORY FIO2 Art 40 % [facility] PF Ratio Art [address] [facility] LABOR[facility]ORY Specimen Anatomical Collection Method Collection Time Receive d Time (Source) Location / / Volume Laterality Blood specimen 07/09/2017 5:37 AM 017 5:37 (specimen) EST AM EST Yuan Webber MD CHEMISTRY ORDERABLES Performing Organization Address City/[facility]/ZIP Code Phon e Number [address] POCT Glucose (07/09/2017 3:27 AM EST) athologist Signature POC Glucose 192 65 - 199 [facility] mg/dL [facility] Comment: Supplemental ranges: <140 mg/dL before meals <180 mg/dL all other times of the day Specimen Anatomical Collection Method Collection Time Receive d Time (Source) Location / / Volume Laterality Blood specimen 07/09/2017 3:27 AM 017 3:27 (specimen) EST AM EST Yuan Webber MD POINT OF CARE TEST ORDERABLE S Performing Organization Address City/State/[place] [address] (ABNORMAL) Basic Metabolic Panel (non-fasting) (07/09/2017 2:30 AM EST) athologist Signature Glucose Lvl 179 65 - 199 [facility] mg/dL [facility] Comment: Diabetes: [...] or in patients with acute kidney failure. [email or web address] [email or web address] Specimen Anatomical Collection Method Collection Time Receive d Time (Source) Location / / Volume Laterality Blood specimen Venous Draw / 07/09/2017 2:30 AM 2016 2:42 (specimen) Unknown EST AM EST Resulting Agency Comment Spec In Lab Yuan Webber MD CHEMISTRY ORDERABLES Performing Organization Address City/[facility] [place] [address] (ABNORMAL) Potassium (07/09/2017 2:30 AM EST) P athologist Signature Potassium 5.1 (H) 3.5 - 5.0 [facility] mmol/L [facility] Comment: Please [...] Webber MD CHEMISTRY ORDERABLES Performing Organization Address City/[facility]/ZIP [facility] [place] [address] (ABNORMAL) Hemogram (07/09/2017 2:30 AM EST) Analysis Performed At Patho logist Time Signature WBC 12.5 (H) 4.0 - 9.5 [facility] x[facility](3[facility] LABORATORY RBC 3.38 (L) 4.58 - [place] 5.54 [facility] x10(6)/[facility] LABORATORY Hemoglobin 10.1 (L) 13.7 - [place] 16.5 gm/dL [facility] Hematocrit 30.3 (L) 40.5 - [place] 48.5 % [facility] MCV 89.6 82.9 - [facility] 93.1 [facility] LABORATORY MCH 29.9 27.5 - [place] 32.1 pg [facility] MCHC 33.3 32.0 - [place] 35.7 gm/dL [facility] Platelets 127 (L) 145 - 357 [facility] x10(3)/[facility] LABORATORY RDWSD 49.3 (H) 36.0 - [facility] 45.0 [facility] LABORATORY RDWCV 15.2 (H) 11.4 - [facility] R[facility]AN 13.8 % [facility] MPV 9.9 7.6 - 12.9 [facility] LABORATORY nRBC % Auto 0.0 % [facility] LABORATORY nRBC Abs Auto 0.000 0.000 - KATALINA ZHAORYAN 0.000 [facility] x10(3)/[facility] LABORATORY Specimen Anatomical Collection Method Collection Time Receive d Time (Source) Location / / Volume Laterality Blood specimen 07/09/2017 2:30 AM 017 2:41 (specimen) EST AM EST Resulting Agency Comment Spec In Lab Yuan Webber MD HEMATOLOGY ORDERABLES Performing Organization Address City/State/[place] [address] POCT Glucose (07/09/2017 2:10 AM EST) P athologist Signature POC Glucose 169 65 - 199 [facility] mg/dL [facility] LABORATORY Comment: Supplemental [...] Address City/State/ZIP Code Phon e Number [address] POCT Glucose (07/09/2017 1:01 AM EST) P athologist Signature POC Glucose 173 65 - 199 [place] DAVIS mg/dL [facility] [...] Address City/[facility]/[place] [address] Blood culture (07/09/2017 12:40 AM EST) [facility] gist Method Time Signature Blood Culture No [...] - BLOOD ORDERAB LES Performing Organization Address City/[facility]/ZIP [place] [address] Blood culture (07/09/2017 12:30 [...] - BLOOD ORDERAB LES Performing Organization Address City/[facility]/ZIP [place] [address] (ABNORMAL) Urinalysis Microscopic Exam (07/09/2017 12:05 AM EST) Analysis Performed At Patho logist Time Signature RBC UA 32 (H) 0 - 3 /HPF [facility] LABORATORY WBC UA 5 (H) 0 - 3 /HPF [facility] LABORATORY Squam Epith UA <1 <=4 /HPF [facility] LABORATORY Hyaline Cast 17 (H) 0 - 2 /LPF [facility] LABORATORY Gran Cast UA 1 (H) <=0 /LPF [facility] LABORATORY Uric Ac Bianca Rare (A) None /HPF [facility] LABORATORY Specimen (Source) Anatomical Collection Method Collection Time Re ceived Time Location / / Volume Laterality Urine specimen 07/09/2017 12:05 7 obtained via AM EST 12:39 AM EST indwelling urinary catheter (specimen) Resulting Agency Comment Spec In Lab Yuan Webber MD URINE ORDERABLES Performing Organization Address City/State/[place] [address] (ABNORMAL) Urinalysis with reflex Culture (07/09/2017 12:05 AM EST) Patholo gist Method Time Signature Glucose UA Negative Negative [facility] mg/dL [facility] LABORATORY Protein UA 30 (A) Negative [facility] mg/dL [facility] LABORATORY Bilirubin UA Negative Negative [facility] mg/dL [facility] LABORATORY Comment: Clinical correlation required for positi ve Urine Bilirubin results as false positive may occur with some drugs and d rug related products. If a false positive is suspected a serum total bili yeager should be considered if clinically indicated. Urobilinogen UA Normal Normal mg/dL [facility] LABORATORY pH UA 5.0 5.0 - 8.0 [facility] LABORATORY Blood UA Moderate (A) Negative mg/dL [facility] LABORATORY Ketones UA Negative Negative mg/dL [facility] LABOR[facility] Nitrite UA Negative Negative [facility] LABORATORY Leukocytes UA Negative Negative [facility] LABORATORY Appearance UA Hazy (A) Clear [facility] LABORATORY Spec [place] UA 1.025 1.002 - 1.030 [facility] LABORATORY Color UA Yellow Yellow [facility] LABORATORY Culture Reflexed No [facility] LABORATORY Specimen (Source) Anatomical Collection Method Collection Time Re ceived Time Location / / Volume Laterality Urine specimen 07/09/2017 12:05 7 obtained via AM EST 12:39 AM EST indwelling urinary catheter (specimen) Resulting Agency Comment Spec In Lab Yuan Webber MD URINE ORDERABLES Performing Organization Address City/[facility]/ZIP Code Phon e Number [address] POCT Glucose (07/08/2017 11:01 PM EST) athologist Signature POC Glucose 191 65 - 199 [facility]dL [facility] LABORATORY Comment: Supplemental [...] Address City/[facility]/ZIP Code Phon e Number [address] POCT Glucose (07/08/2017 10:04 PM EST) athologist Signature POC Glucose 198 65 - 199 [facility] mg/dL [facility] LABORATORY Comment: Supplemental ranges: <140 mg/dL before meals <180 mg/dL all other times of the day Specimen Anatomical Collection Method Collection Time Receive d Time (Source) Location / / Volume Laterality Blood specimen 07/08/2017 10:04 7 (specimen) PM EST 10:04 PM EST Yuan Webber MD POINT OF CARE TEST ORDERABLE S Performing Organization Address City/State/[place] [address] Prepare Albumin 5% in [...] Organization Address City/State/[place] [address] POCT Glucose (07/08/2017 8:28 PM EST) athologist Signature POC Glucose 195 65 - 199 [facility] mg/dL [facility] LABORATORY Comment: Supplemental ranges: <140 mg/dL before meals <180 mg/dL all other times of the day Specimen Anatomical Collection Method Collection Time Receive d Time (Source) Location / / Volume Laterality Blood specimen 07/08/2017 8:28 PM 017 8:28 (specimen) EST PM EST Yuan Webber MD POINT OF CARE TEST ORDERABLE S Performing Organization Address City/State/[place] [address] (ABNORMAL) POCT Glucose (07/08/2017 7:13 PM EST) athologist Signature POC Glucose 220 (H) 65 - 199 [facility] mg/dL [facility] LABORATORY Comment: Supplemental ranges: <140 mg/dL before meals <180 mg/dL all other times of the day Specimen Anatomical Collection Method Collection Time Receive d Time (Source) Location / / Volume Laterality Blood specimen 07/08/2017 7:13 PM 017 7:13 (specimen) EST PM EST Yuan Webber MD POINT OF CARE TEST ORDERABLE S Performing Organization Address City/State/[place] [address] POCT Glucose (07/08/2017 5:04 PM EST) athologist Signature POC Glucose 147 65 - 199 [facility] mg/dL [facility] LABORATORY Comment: Supplemental ranges: <140 mg/dL before meals <180 mg/dL all other times of the day Specimen Anatomical Collection Method Collection Time Receive d Time (Source) Location / / Volume Laterality Blood specimen 07/08/2017 5:04 PM 017 5:04 (specimen) EST PM EST Yuan Webber MD POINT OF CARE TEST ORDERABLE S Performing Organization Address City/State/[place] [address] (ABNORMAL) BLOOD GAS 2 ARTERIAL (07/08/2017 4:13 PM EST) Analysis Performed At Patho logist Time Signature pH Art 7.38 7.35 - [facility] 7.45 [facility] LABORATORY pCO2 Art 36 35 - 45 [facility] mmHg [facility] LABORATORY pO2 Art 91 85 - 104 [facility] LABORATORY HCO3 Art 20.9 20.0 - [facility] 26.0 [facility] mmol/L [facility] LABORATORY BE Art -4.2 (L) -3.0 - 3.0 [facility] mmol/L [facility] LABORATORY Hgb Blood Gas 11.7 (L) 13.7 - [facility] 16.5 gm/dL [facility] LABORATORY O2HB Art 95.1 94.0 - [facility] 97.0 % [facility] LABORATORY COHB Art 0.6 % [facility] LABORATORY Comment: Nonsmokers: 0.5-1.5% COHB Smokers: Variable, but usually less than 10% Toxic: 20-30% COHB Lethal: Greater than 60% COHB METHB Art 0.6 <=1.5 % [facility] LABORATORY Na Whole Blood 139 135 [...] Whole Bld 155 65 - 199 mg/dL [facility] LABORATORY Comment: Diabetes: >=200 mg/dL plus symp toms. Lactate WB 1.4 0.5 - 2.2 mmol/L [facility] LABORATORY FIO2 Art 40 % [facility] LABORATORY PF Ratio Art [address] [facility] LABORATORY Specimen Anatomical Collection Method Collection Time Receive d Time (Source) Location / / Volume Laterality Blood specimen 07/08/2017 4:13 PM 017 4:13 (specimen) EST PM EST Yuan Webber MD CHEMISTRY ORDERABLES Performing Organization Address City/[facility]/ZIP [facility] [place] [address] POCT Glucose (07/08/2017 4:01 PM EST) P athologist Signature POC Glucose 148 65 - 199 [facility] mg/dL [facility] LABORATORY Comment: Supplemental [...] Address City/[facility]/[place] [address] POCT Glucose (07/08/2017 3:21 PM EST) P athologist Signature POC Glucose 118 65 - 199 [facility] mg/dL [facility] LABORATORY Comment: Supplemental [...] Address City/State/ZIP Code Phon e Number [address] POCT Glucose (07/08/2017 2:01 PM EST) athologist Signature POC Glucose 129 65 - 199 [place]ALINA RYAN mg/dL [facility] [...] Address City/[facility]/ZIP Code Phon e Number [address] POCT Glucose (07/08/2017 11:53 [...] Address City/[facility]/ZIP Code Phon e Number [address] POCT Glucose (07/08/2017 11:04 AM EST) athologist Signature POC Glucose 181 65 - 199 [place]ALINA RYAN mg/dL [facility] [...] Organization Address City/State/[place] [address] (ABNORMAL) POCT Glucose (07/08/2017 9:24 AM EST) athologist Signature POC Glucose 203 (H) 65 - 199 [facility] mg/dL [facility] LABORATORY Comment: Supplemental ranges: <140 mg/dL before meals <180 mg/dL all other times of the day Specimen Anatomical Collection Method Collection Time Receive d Time (Source) Location / / Volume Laterality Blood specimen 07/08/2017 9:24 AM 017 9:24 (specimen) EST AM EST Yuan Webber MD POINT OF CARE TEST ORDERABLE S Performing Organization Address City/State/[place] [address] APTT (07/08/2017 8:40 AM [...] Webber MD HEMATOLOGY ORDERABLES Performing Organization Address City/[facility]/[place] [address] (ABNORMAL) Prothrombin Time (07/08/2017 [...] Organization Address City/State/[place] [address] (ABNORMAL) POCT Glucose (07/08/2017 7:38 AM EST) athologist Signature POC Glucose 232 (H) 65 - 199 [facility] mg/dL [facility] LABORATORY Comment: Supplemental [...] Address City/[facility]/[place] [address] (ABNORMAL) POCT Glucose (07/08/2017 7:07 AM EST) athologist Signature POC Glucose 234 (H) 65 - 199 [facility] mg/dL [facility] LABORATORY Comment: Supplemental [...] Address City/[facility]/[place] [address] (ABNORMAL) POCT Glucose (07/08/2017 6:04 AM EST) athologist Signature POC Glucose 225 (H) 65 - 199 [facility] mg/dL [facility] LABORATORY Comment: Supplemental ranges: <140 mg/dL before meals <180 mg/dL all other times of the day Specimen Anatomical Collection Method Collection Time Receive d Time (Source) Location / / Volume Laterality Blood specimen 07/08/2017 6:04 AM 017 6:04 (specimen) EST AM EST Yuan Webber MD POINT OF CARE TEST ORDERABLE S Performing Organization Address City/State/[place] [address] (ABNORMAL) POCT Glucose (07/08/2017 5:31 AM EST) athologist Signature POC Glucose 216 (H) 65 - 199 [facility] mg/dL [facility] LABORATORY Comment: Supplemental ranges: <140 mg/dL before meals <180 mg/dL all other times of the day Specimen Anatomical Collection Method Collection Time Receive d Time (Source) Location / / Volume Laterality Blood specimen 07/08/2017 5:31 AM 017 5:31 (specimen) EST AM EST Yuan Webber MD POINT OF CARE TEST ORDERABLE S Performing Organization Address City/State/[place] [address] (ABNORMAL) POCT Glucose (07/08/2017 4:52 AM EST) athologist Signature POC Glucose 257 (H) 65 - 199 [facility] mg/dL [facility] LABORATORY Comment: Supplemental ranges: <140 mg/dL before meals <180 mg/dL all other times of the day Specimen Anatomical Collection Method Collection Time Receive d Time (Source) Location / / Volume Laterality Blood specimen 07/08/2017 4:52 AM 017 4:52 (specimen) EST AM EST Daphne Shahid MD POINT OF CARE TEST ORDERABLE S Performing Organization Address City/State/[place] [address] (ABNORMAL) BLOOD GAS 2 ARTERIAL (07/08/2017 4:04 AM EST) Analysis Performed At Patho logist Time Signature pH Art 7.30 (L) 7.35 - [facility] 7.45 [facility] LABORATORY pCO2 Art 41 35 - 45 [facility] mmHg [facility] LABORATORY pO2 Art 83 (L) 85 - 104 [facility] LABORATORY HCO3 Art 19.6 (L) 20.0 - [facility] 26.0 [facility] mmol/L [facility] LABORATORY BE Art -6.8 (L) -3.0 - 3.0 [facility] mmol/L [facility] LABORATORY Hgb Blood Gas 12.2 (L) 13.7 - [facility] 16.5 gm/dL [facility] O2HB Art 93.5 (L) 94.0 - [facility] 97.0 % [facility] COHB Art 0.4 % [facility] LABORATORY Comment: Nonsmokers: 0.5-1.5% COHB Smokers: Variable, but usually less than 10% Toxic: 20-30% COHB Lethal: Greater than 60% COHB METHB Art 0.8 <=1.5 % [facility] LABORATORY [...] Bld 274 (H) 65 - 199 mg/dL [facility] LABORATORY Comment: Diabetes: >=200 mg/dL plus symp toms. Lactate WB 4.4 (Critical) 0.5 - 2.2 mmol/L [facility] LABORATORY Comment: Noted by electrical instrumentation technician. FIO2 Art 40 % [facility] LABORATORY PF Ratio Art [address] [facility] LABORATORY Specimen Anatomical Collection Method Collection Time Receive d Time (Source) Location / / Volume Laterality Blood specimen 07/08/2017 4:04 AM 017 4:04 (specimen) EST AM EST Daphne Shahid MD CHEMISTRY ORDERABLES Performing Organization Address City/State/ZIP Code Phon e Number [address] Scan, Peripheral Blood (07/08/2017 [...] Webber MD HEMATOLOGY ORDERABLES Performing Organization Address City/[facility]/ZIP Code Phon e Number [address] (ABNORMAL) Differential, Automated (07/08/2017 4:00 AM EST) Patholo gist Method Time Signature Neutrophils % 85.4 % [facility] LABORATORY Neutr Abs (ANC) 16.07 (H) 1.70 - [facility] 6.10 [facility] x10(3)/[facility] LABORATORY Lymphocytes % 3.5 % [facility] LABORATORY Lymphocytes Abs 0.6 (L) 0.9 - 3.2 [facility] x10(3)/[facility] LABORATORY Monocytes % 10.4 % [facility] LABORATORY Monocyte Abs 2.0 (H) 0.3 - 0.9 [facility] x10(3)/[facility] LABORATORY Eosinophils % 0.0 % [facility] LABORATORY Eosinophils Abs 0.0 0.0 - 0.4 [facility] x10(3)/[facility] LABORATORY Basophils % 0.1 % [facility] LABORATORY Basophils Abs 0.0 0.0 - 0.1 [facility] x10(3)/[facility] LABORATORY Immature Gran % 0.60 % [facility] [...] Organization Address City/State/[place] [address] (ABNORMAL) Hemogram (07/08/2017 4:00 AM EST) Analysis Performed At Patho logist Time Signature WBC 18.8 (H) 4.0 - 9.5 [facility] x10(3)/[facility] LABORATORY RBC 4.00 (L) 4.58 - [facility] 5.54 [facility] x10(6)/[facility] LABORATORY Hemoglobin 11.9 (L) 13.7 - [facility] 16.5 gm/dL [facility] LABORATORY Hematocrit 35.9 (L) 40.5 - [facility] 48.5 % [facility] LABORATORY MCV 89.8 82.9 - [facility] 93.1 [facility] LABORATORY MCH 29.8 27.5 - [facility] RYAN 32.1 pg [facility] LABORATORY MCHC 33.1 32.0 - [facility] 35.7 gm/dL [facility] LABORATORY Platelets 232 145 - 357 [facility] x10(3)/[facility] LABORATORY RDWSD 47.6 (H) 36.0 - [facility] RYAN 45.0 [facility] RDWCV 14.5 (H) 11.4 - [facility] RYAN 13.8 % [facility] LABORATORY MPV 9.5 7.6 - 12.9 [facility] LABORATORY nRBC % Auto 0.0 % [facility] LABORATORY nRBC Abs Auto 0.000 0.000 - [facility] 0.000 [facility] x10(3)/[facility] LABORATORY Specimen Anatomical Collection Method Collection Time Receive d Time (Source) Location / / Volume Laterality Blood specimen 07/08/2017 4:00 AM 017 4:09 (specimen) EST AM EST Resulting Agency Comment Spec In Lab Yuan Webber MD HEMATOLOGY ORDERABLES Performing Organization Address City/[facility]/[place] [address] (ABNORMAL) Electrolytes panel (07/08/2017 4:00 AM EST) athologist Signature Sodium 139 135 - 145 [facility] mmol/L [facility] LABORATORY Potassium 4.7 3.5 - 5.0 [facility] mmol/L [facility] LABORATORY Comment: result [...] Webber MD CHEMISTRY ORDERABLES Performing Organization Address City/[facility]/[place] [address] (ABNORMAL) Cardiac Enzymes (LEB/CGP) (07/08/2017 4:00 AM EST) P athologist Signature Troponin-T 1.88 (H) 0.00 - [facility] 0.00 ng/mL [facility] LABORATORY Comment: The 99th percentile for Troponin T is le ss than 0.01 ng/mL, any detectable cTnT concentration using this assay should be considered elevated. According to the third universal definit ion of myocardial infarction the following criteria with a clinical prese ntation consistent with acute myocardial ischemia meets the diagnosis for a myocardial infarction ([place]). Detection of a rise and/or fall of [...] additional sample may be indicated. Reference: Third [place] Definition of Myocardial Infarction. Journal of the [place] [employer] 2012;60:1581-98 CK, Total 413 (H) 0 - 200 unit/L [facility] LABORATORY Comment: result rechecked-K Specimen Anatomical Collection Method Collection Time Receive d Time (Source) Location / / Volume Laterality Blood specimen 07/08/2017 4:00 AM 017 4:09 (specimen) EST AM EST Resulting Agency Comment Spec In Lab Yuan Webber MD CHEMISTRY ORDERABLES Performing Organization Address City/State/[place] [address] (ABNORMAL) Glucose, fasting (07/08/2017 4:00 AM EST) athologist Signature Glucose 287 (H) 65 - 99 [facility] Fasting mg/dL [facility] LABORATORY Comment: [...] Webber MD CHEMISTRY ORDERABLES Performing Organization Address City/[facility] Code Phon e Number [address] (ABNORMAL) Creatinine (07/08/2017 4:00 AM EST) Analysis Performed At Patho logist Time Signature Creatinine 1.55 (H) 0.80 - [place] RYAN 1.50 mg/dL [facility] LABORATORY Estimated GFR 44 (L) >=60 [facility] LABOR[facility]ORY Comment: The reported eGFR should be multiplied b y 1.2 for patients. The MDRD is not an appropriate measure o f renal function for patients with body mass extremes or in patients with acute kidney failure. http://[employer].iMove/DHnkdep http://[employer]/DHMCnkf Specimen Anatomical Collection Method Collection Time Receive d Time (Source) Location / / Volume Laterality Blood specimen 07/08/2017 4:00 AM 017 4:09 (specimen) EST AM EST Resulting Agency Comment Spec In Lab Yuan Webber MD CHEMISTRY ORDERABLES Performing Organization Address City/[facility]/ZIP Code Phon e Number [address] BUN (07/08/2017 4:00 AM EST) P athologist Signature BUN 16 10 - 20 [place] RYAN mg/dL [facility] LABORATORY Specimen Anatomical Collection Method Collection Time Receive d Time (Source) Location / / Volume Laterality Blood specimen 07/08/2017 4:00 AM 017 4:09 (specimen) EST AM EST Resulting Agency Comment Spec In Lab Yuan Webber MD CHEMISTRY ORDERABLES Performing Organization Address City/[facility]/ZIP Code Phon e Number [address] (ABNORMAL) POCT Glucose (07/08/2017 3:00 AM EST) P athologist Signature POC Glucose 273 (H) 65 - 199 [facility] mg/dL [facility] LABORATORY Comment: Supplemental [...] Address City/[facility]/[place] [address] (ABNORMAL) POCT Glucose (07/08/2017 1:57 AM EST) P athologist Signature POC Glucose 288 (H) 65 - 199 [facility] mg/dL [facility] LABORATORY Comment: Supplemental [...] Address City/[facility]/[place] [address] (ABNORMAL) POCT Glucose (07/08/2017 1:01 AM EST) P athologist Signature POC Glucose 315 (H) 65 - 199 [facility] mg/dL [facility] LABORATORY Comment: Supplemental ranges: <140 mg/dL before meals <180 mg/dL all other times of the day Specimen Anatomical Collection Method Collection Time Receive d Time (Source) Location / / Volume Laterality Blood specimen 07/08/2017 1:01 AM 017 1:01 (specimen) EST AM EST Daphne Shahid MD POINT OF CARE TEST ORDERABLE S Performing Organization Address City/State/[place] [address] (ABNORMAL) BLOOD GAS 2 ARTERIAL (07/08/2017 12:09 AM EST) athologist Signature pH Art 7.26 7.35 - [facility] (Critical) 7.45 [facility] LABORATORY Comment: Noted by electrical instrumentation technician. pCO2 Art 41 35 - [...] [facility] LABORATORY COHB Art 0.2 % [facility] LABORATORY Comment: Nonsmokers: 0.5-1.5% COHB Smokers: Variable, but usually less than 10% Toxic: 20-30% COHB Lethal: Greater than 60% COHB METHB Art 0.6 <=1.5 % [facility] LABORATORY Na Whole Blood 141 135 [...] Bld 315 (H) 65 - 199 mg/dL [facility] LABORATORY Comment: Diabetes: >=200 mg/dL plus symp toms. Lactate WB 7.6 (Critical) 0.5 - 2.2 mmol/L [facility] LABORATORY Comment: Noted by electrical instrumentation technician. FIO2 Art 40 % [facility] LABORATORY PF Ratio Art [address] [facility] LABORATORY Specimen Anatomical Collection Method Collection Time Receive d Time (Source) Location / / Volume Laterality Blood specimen Arterial Draw / 07/08/2017 12:09 2016 5:31 (specimen) Unknown AM EST AM EST Resulting Agency Comment Spec In Lab Samy Maldonado MD CHEMISTRY ORDERABLES Performing Organization Address City/[facility]/[place] [address] (ABNORMAL) POCT Glucose (07/07/2017 10:56 PM EST) P athologist Signature POC Glucose 292 (H) 65 - 199 [facility] mg/dL [facility] Comment: Supplemental ranges: <140 mg/dL before meals <180 mg/dL all other times of the day Specimen Anatomical Collection Method Collection Time Receive d Time (Source) Location / / Volume Laterality Blood specimen 07/07/2017 10:56 7 (specimen) PM EST 10:56 PM EST Daphne Shahid MD POINT OF CARE TEST ORDERABLE S Performing Organization Address City/State/[place] [address] (ABNORMAL) BLOOD GAS 2 ARTERIAL (07/07/2017 10:04 PM EST) P athologist Signature pH Art 7.22 7.35 - [facility] (Critical) 7.45 [facility] Comment: Noted by electrical instrumentation technician. pCO2 Art 42 35 - [...] [facility] LAB[facility]ATORY COHB Art 0.7 % [facility] Comment: Nonsmokers: 0.5-1.5% COHB Smokers: Variable, but usually less than 10% Toxic: 20-30% COHB Lethal: Greater than 60% COHB METHB Art 0.7 <=1.5 % [facility] Na Whole Blood 140 135 [...] Bld 304 (H) 65 - 199 mg/dL [facility] Comment: Diabetes: >=200 mg/dL plus symp toms. Lactate WB 8.2 (Critical) 0.5 - 2.2 mmol/L [facility] Comment: Noted by electrical instrumentation technician. FIO2 Art 40 % [facility] PF Ratio Art [address] [facility] Specimen Anatomical Collection Method Collection Time Receive d Time (Source) Location / / Volume Laterality Blood specimen 07/07/2017 10:04 7 (specimen) PM EST 10:04 PM EST Daphne Shahid MD CHEMISTRY ORDERABLES Performing Organization Address City/State/[place] [address] (ABNORMAL) Hemoglobin (07/07/2017 10:00 PM EST) athologist Signature Hemoglobin 12.8 (L) 13.7 - [facility] 16.5 gm/dL [facility] Specimen Anatomical Collection Method Collection Time Receive d Time (Source) Location / / Volume Laterality Blood specimen 07/07/2017 10:00 7 (specimen) PM EST 10:13 PM EST Resulting Agency Comment Spec In Lab Yuan Webber MD HEMATOLOGY ORDERABLES Performing Organization Address City/[facility] Phon e Number [address] (ABNORMAL) Potassium (07/07/2017 10:00 PM EST) athologist [facility] Potassium 3.4 (L) 3.5 - 5.0 [facility] mmol/L [facility] Comment: Please [...] Webber MD CHEMISTRY ORDERABLES Performing Organization Address [facility] [place] [address] (ABNORMAL) POCT Glucose (07/07/2017 8:49 PM EST) athologist Signature POC Glucose 241 (H) 65 - 199 [facility] mg/dL [facility] Comment: Supplemental [...] Address City/[facility]/ZIP Code Phon e Number [address] Prepare Albumin 5% in [...] [facility] BLOOD BANK ORDERABLES Performing Organization Address City/[facility]/ZIP Code Phon e Number [address] EKG 12 Lead (07/07/2017 7:17 PM EST) Component Value Ref Range Test Analysis Performed Pathologis t Method Time At Signature Ventricular rate 75 BPM MUSE SYSTEM Atrial Rate 75 BPM MUSE SYSTEM P-R Interval 168 ms MUSE SYSTEM QRS Duration 104 ms MUSE SYSTEM Q-T Interval 462 ms MUSE SYSTEM QTC Calculated 515 ms MUSE SYSTEM (Bezet) Calculated P [place] 52 degrees MUSE SYSTEM Calculated R [place] -40 degrees MUSE SYSTEM Calculated T [place] 39 degrees MUSE SYSTEM INTERPRETATION Normal sinus [...] Signature pH Art 7.21 7.35 - [facility] (Critical) 7.45 [facility] Comment: Noted by electrical instrumentation technician. pCO2 Art 50 (H) 35 [...] [facility]ENTER LABORATORY COHB Art 0.5 % [facility] Comment: Nonsmokers: 0.5-1.5% COHB Smokers: Variable, but usually less than 10% Toxic: 20-30% COHB Lethal: Greater than 60% COHB METHB Art 0.7 <=1.5 % [facility] Na Whole Blood 140 135 - 145 mmol/L [facility] K Whole Blood 3.0 (Critical) 3.5 - 5.0 mmol/L [facility] Comment: Noted by electrical instrumentation technician. Please note: Patients with WBC [...] Bld 270 (H) 65 - 199 mg/dL [facility] Comment: Diabetes: >=200 mg/dL plus symp toms. Lactate WB 4.9 (Critical) 0.5 - 2.2 mmol/L [facility] Comment: Noted by electrical instrumentation technician. FIO2 Art 100 % [facility] PF Ratio Art [address] [facility] Specimen Anatomical Collection Method Collection Time Receive d Time (Source) Location / / Volume Laterality Blood specimen 07/07/2017 6:57 PM 017 6:57 (specimen) EST PM EST Daphne Shahid MD CHEMISTRY ORDERABLES Performing Organization Address City/State/[place] [address] (ABNORMAL) BLOOD GAS 2 ARTERIAL (07/07/2017 5:31 PM EST) athologist Signature pH Art 7.29 7.35 - [facility] (Critical) 7.45 [facility] Comment: Noted by electrical instrumentation technician. pCO2 Art 48 (H) 35 [...] COHB METHB Art 0.3 <=1.5 % [facility] Na Whole Blood 132 (L) [...] Bld 293 (H) 65 - 199 mg/dL [facility] Comment: Diabetes: >=200 mg/dL plus symp toms. Lactate WB 3.1 (H) 0.5 - 2.2 mmol/L [facility] Specimen Anatomical Collection Method Collection Time Receive d Time (Source) Location / / Volume Laterality Blood specimen 07/07/2017 5:31 PM 017 5:31 (specimen) EST PM EST Daphen Shahid MD CHEMISTRY ORDERABLES Performing Organization Address City/[facility]/[place] [address] Fibrinogen (07/07/2017 5:30 PM EST) athologist Signature Fibrinogen 224 180 - 510 [facility] mg/dL [facility] Comment: Called [...] Perez MD HEMATOLOGY ORDERABLES Performing Organization Address City/[facility]/ZIP Code Phon e Number [address] APTT (07/07/2017 5:30 PM [...] Perez MD HEMATOLOGY ORDERABLES Performing Organization Address City/[facility]/ZIP [facility] Phon e Number [address] (ABNORMAL) Prothrombin Time (07/07/2017 [...] City/State/ZIP Code Phon e Number [place] [phone] (ABNORMAL) Hemogram (07/07/2017 5:30 PM EST) P athologist Signature WBC 19.6 (H) 4.0 - 9.5 [facility] x10(3)/[facility] LABORATORY RBC 3.08 (L) 4.58 - [facility] 5.54 [facility] x10(6)/[facility] LABORATORY Hemoglobin 9.2 (L) 13.7 - [facility] 16.5 gm/dL [facility] Hematocrit 28.0 (L) 40.5 - [facility] 48.5 % [facility] Comment: This result has been called to MONICA MORAN by DONALD GROSSMAN on 07 07 2017 at 1759, and has been read back. MCV 90.9 82.9 - 93.1 fL [facility] MCH 29.9 27.5 - 32.1 pg [facility] MCHC 32.9 32.0 - 35.7 gm/dL [facility] Platelets 155 145 - 357 x10(3)/[facility] LABORATORY RDWSD 46.5 (H) 36.0 - 45.0 fL [facility] RDWCV 14.1 (H) 11.4 - [...] Perez MD HEMATOLOGY ORDERABLES Performing Organization Address [facility] Phon e Number [address] Prepare Platelets, Apheresis (07/07/2017 5:00 PM EST) athologist Signature Dispensed? Yes [facility] Specimen Anatomical Collection Method Collection Time Receive d Time (Source) Location / / Volume Laterality Blood specimen 07/07/2017 5:00 PM 017 4:58 (specimen) EST PM EST Daphne Shahid MD BLOOD BANK ORDERABLES Performing Organization Address [facility] Phon e Number [address] Platelet count (07/07/2017 4:55 PM EST) athologist Signature Platelets 177 145 - 357 [facility] x10(3)/[facility] LABORATORY Plat Immature 1.5 0.0 - 7.4 [facility] LAB[facility]ORY Comment: Limitation of the Immature Platelet Frac tion (IPF)-May be less reliable when the platelet count is less than 73d804/u L due to statistical imprecision. The IPF [...] in a decreased state of production. References: [employer] The Clinical Value of the Immature Platelet Fraction (IPF) in Cell Recovery Document Number 10-1143 12/2010 [employer] The Role of the Imm ature Platelet Fraction (IPF) in the Differential Diagnosis of Thrombocytopen ia, Document [id number] V012/04/13 P012/06 Specimen Anatomical Collection Method Collection Time Receive d Time (Source) Location / / Volume Laterality Blood specimen 07/07/2017 4:55 PM 017 5:13 (specimen) EST PM EST Resulting Agency Comment Spec In Lab Daphne Shahid MD HEMATOLOGY ORDERABLES Performing Organization Address City/[facility]/[place] [address] (ABNORMAL) Hemoglobin and Hematocrit, blood (07/07/2017 4:55 PM EST) P athologist Signature Hemoglobin 9.1 (L) 13.7 - 16.5 [facility] gm/dL [facility] Comment: This [...] Shahid MD HEMATOLOGY ORDERABLES Performing Organization Address City/[facility]/[place] [address] (ABNORMAL) BLOOD GAS 2 ARTERIAL (07/07/2017 4:38 PM EST) Analysis Performed At Patho logist Time Signature pH Art 7.37 7.35 - [facility] 7.45 [facility] pCO2 Art 44 35 - 45 [facility] LABORATORY pO2 Art 322 (H) 85 - 104 [facility] HCO3 Art 24.9 20.0 - [facility] 26.0 [facility] mmol/L [facility] LABORATORY BE Art -0.4 -3.0 - 3.0 [facility] mmol/L [facility] Hgb Blood Gas 10.1 (L) 13.7 - [facility] 16.5 gm/dL [facility] O2HB Art 98.7 (H) 94.0 - [facility] 97.0 % [facility] COHB Art 0.1 % [facility] Comment: Nonsmokers: 0.5-1.5% COHB Smokers: Variable, but usually less than 10% Toxic: 20-30% COHB Lethal: Greater than 60% COHB METHB Art 0.3 <=1.5 % [facility] Na Whole Blood 130 (L) [...] [facility] Comment: Noted by electrical instrumentation technician. Note: ??Total bilirubin higher than 20 m g/dL may lead to falsely low ionized calcium. CL Whole Blood 101 98 - 107 mmol/L [facility] LABORATORY Gluc Whole Bld 295 (H) 65 - 199 mg/dL [facility] [...] Organization Address City/State/[place] [address] (ABNORMAL) BLOOD GAS 2 VENOUS (07/07/2017 4:06 PM EST) Analysis Performed At Patho logist Time Signature pH Cody 7.31 (L) 7.32 - [facility] 7.42 [facility]ORY pCO2 Cody 47 41 - 51 [facility] LABORATORY pO2 Cody 53 (H) 25 - 40 [facility] LABORATORY HCO3 [place] 22.7 mmol/L [facility]OR[facility] BE Cody -3.7 mmol/L [facility] Hgb Blood Gas 10.2 (L) 13.7 - [facility] 16.5 gm/dL [facility] O2HB Cody 81.0 % [facility] COHB Cody 1.0 % [facility] Comment: Nonsmokers: 0.5-1.5% COHB Smokers: Variable, but usually less than 10% Toxic: 20-30% COHB Lethal: Greater than 60% COHB METHB Cody 0.3 <=1.5 % [facility] Na Whole Blood 132 (L) [...] [facility] Comment: Noted by electrical instrumentation technician. Note: ??Total bilirubin higher than 20 m g/dL may lead to falsely low ionized calcium. CL Whole Blood 100 98 - 107 mmol/L [facility] LABORATORY Gluc Whole Bld 231 (H) 65 - 199 mg/dL [facility] Comment: Diabetes: >=200 mg/dL plus symp toms Lactate WB 1.1 0.5 - 2.2 mmol/L [facility] BGas Source Venous [facility] LABORATORY Specimen Anatomical Collection Method Collection Time Receive d Time (Source) Location / / Volume Laterality Blood specimen 07/07/2017 4:06 PM 017 4:06 (specimen) EST PM EST Daphne Shahid MD CHEMISTRY ORDERABLES Performing Organization Address City/State/[place] [address] (ABNORMAL) BLOOD GAS 2 ARTERIAL (07/07/2017 4:05 PM EST) Analysis Performed At Patho logist Time Signature pH Art 7.36 7.35 - [facility] 7.45 [facility] LABORATORY pCO2 Art 40 35 - 45 [facility] LABORATORY pO2 Art 282 (H) 85 - 104 [facility] LABORATORY HCO3 Art 22.1 20.0 - [facility] 26.0 [facility] mmol/L [facility] LABORATORY BE Art -3.4 (L) -3.0 - 3.0 [facility] mmol/L [facility] LABORATORY Hgb Blood Gas 10.2 (L) 13.7 - [facility] 16.5 gm/dL [facility]ATORY O2HB Art 98.4 (H) 94.0 - [facility] 97.0 % [facility]ORY COHB Art 0.3 % [facility] Comment: Nonsmokers: 0.5-1.5% COHB Smokers: Variable, but usually less than 10% Toxic: 20-30% COHB Lethal: Greater than 60% COHB METHB Art 0.3 <=1.5 % [facility] Na Whole Blood 131 (L) [...] [facility] Comment: Noted by electrical instrumentation technician. Note: ??Total bilirubin higher than 20 m g/dL may lead to falsely low ionized calcium. CL Whole Blood 101 98 - 107 mmol/L [facility] LABORATORY Gluc Whole Bld 260 (H) 65 - 199 mg/dL [facility] [...] Organization Address City/State/[place] [address] (ABNORMAL) BLOOD GAS 2 ARTERIAL (07/07/2017 2:29 PM EST) Analysis Performed At Patho logist Time Signature pH Art 7.43 7.35 - [facility] 7.45 [facility] LABORATORY pCO2 Art 36 35 - 45 [facility] LABORATORY pO2 Art 221 (H) 85 - 104 [facility] LABORATORY HCO3 Art 23.2 20.0 - [facility] 26.0 [facility] mmol/L [facility] LABORATORY BE Art -1.2 -3.0 - 3.0 [facility] mmol/L [facility] LABORATORY Hgb Blood Gas 13.9 13.7 - [facility] 16.5 gm/dL [facility]ORY O2HB Art 97.8 (H) 94.0 - [facility] 97.0 % [facility] LABORATORY COHB Art 1.1 % [facility] Comment: Nonsmokers: 0.5-1.5% COHB Smokers: Variable, but usually less than 10% Toxic: 20-30% COHB Lethal: Greater than 60% COHB METHB Art 0.3 <=1.5 % [facility] Na Whole Blood 139 135 [...] Whole Bld 184 65 - 199 mg/dL [facility] Comment: Diabetes: >=200 mg/dL plus symp toms. Lactate WB 1.5 0.5 - 2.2 mmol/L [facility] Specimen Anatomical Collection Method Collection Time Receive d Time (Source) Location / / Volume Laterality Blood specimen 07/07/2017 2:29 PM 017 2:29 (specimen) EST PM EST Daphne Shahid MD CHEMISTRY ORDERABLES Performing Organization Address City/[facility] [place] [address] Prepare Coag Factors (Non-Hemophilia) (07/07/2017 1:25 PM EST) P athologist Signature Dispensed? Yes [facility] Specimen Anatomical Collection Method Collection Time Receive d Time (Source) Location / / Volume Laterality Blood specimen 07/07/2017 1:25 PM 017 1:21 (specimen) EST PM EST Daphne Shahid MD BLOOD BANK ORDERABLES Performing Organization Address City/[facility]/[place] [address] Prepare RBC (07/07/2017 1:10 PM EST) P athologist Signature Dispensed? Yes [facility] Specimen Anatomical Collection Method Collection Time Receive d Time (Source) Location / / Volume Laterality Blood specimen 07/07/2017 1:10 PM 017 1:05 (specimen) EST PM EST Daphne Shahid MD BLOOD BANK ORDERABLES Performing Organization Address City/[facility]/[place] [address] POCT Glucose (07/07/2017 11:56 AM EST) athologist Signature POC Glucose 188 65 - 199 [facility]ORYAN mg/dL [facility] [...] Address City/State/ZIP Code Phon e Number [address] POCT Glucose (07/07/2017 11:05 AM EST) athologist Signature POC Glucose 168 65 - 199 [facility] mg/dL [facility] LABORATORY Comment: [...] Organization Address City/State/[place] [address] POCT Glucose (07/07/2017 10:02 [...] Organization Address City/State/[place] [address] POCT Glucose (07/07/2017 7:53 AM EST) athologist Signature POC Glucose 178 65 - 199 [facility] mg/dL [facility]OR[facility]ORY Comment: [...] Organization Address City/State/[place] [address] POCT Glucose (07/07/2017 7:03 AM EST) athologist Signature POC Glucose 188 65 - 199 [facility] mg/dL [facility] Comment: [...] Organization Address City/State/[place] [address] (ABNORMAL) POCT Glucose (07/07/2017 6:17 AM EST) athologist Signature POC Glucose 207 (H) 65 - 199 [facility] mg/dL [facility]OR[facility]ORY Comment: [...] Organization Address City/State/[place] [address] Differential, Automated (07/07/2017 5:15 AM EST) P athologist Signature Neutrophils % 69.7 % [facility] LABOR[facility]ORY Neutr Abs (ANC) 5.32 1.70 - [facility] 6.10 [facility] x10(3)/[facility] LABORATORY Lymphocytes % 16.3 % [facility] LABOR[facility]ORY Lymphocytes Abs 1.2 0.9 - 3.2 [facility] x10(3)/[facility] LABORATORY Monocytes % 10.5 % [facility]OR[facility]ORY Monocyte Abs 0.8 0.3 - 0.9 [facility] x10(3)/[facility] LABORATORY Eosinophils % 2.5 % [facility] LABOR[facility]ORY Eosinophils Abs 0.2 0.0 - 0.4 [facility] x10(3)/[facility] LABORATORY Basophils % 0.7 % [facility] LABORATORY Basophils Abs 0.0 0.0 - 0.1 [facility] x10(3)/[facility] [...] 0.04 x10(3)/[facility] LABORATORY Specimen Anatomical Collection Method Collection Time Receive d Time (Source) Location / / Volume Laterality Blood specimen 07/07/2017 5:15 AM 017 5:34 (specimen) EST AM EST Resulting Agency Comment Spec In Lab Daphne Shahid MD HEMATOLOGY ORDERABLES Performing Organization Address City/State/[place] [address] (ABNORMAL) Hemogram (07/07/2017 5:15 AM EST) Analysis Performed At Patho logist Time Signature WBC 7.6 4.0 - 9.5 [facility] x10(3)/[facility] LABORATORY RBC 4.82 4.58 - [facility] 5.54 [facility] x10(6)/[facility] LABORATORY Hemoglobin 14.4 13.7 - [facility] 16.5 gm/dL [facility] LABORATORY Hematocrit 42.1 40.5 - [facility] 48.5 % [facility]ORATORY MCV 87.3 82.9 - [facility] 93.1 [facility] LABORATORY MCH 29.9 27.5 - [facility] 32.1 pg [facility] LABORATORY MCHC 34.2 32.0 - [facility] 35.7 gm/dL [facility] LABORATORY Platelets 188 145 - 357 [facility] x10(3)/[facility] LABORATORY RDWSD 45.1 (H) 36.0 - [facility] 45.0 [facility] LABORATORY RDWCV 14.3 (H) 11.4 - [facility] 13.8 % [facility] LABORATORY MPV 9.4 7.6 - 12.9 [facility] LABORATORY nRBC % Auto 0.0 % [facility] LABORATORY nRBC Abs Auto 0.000 0.000 - [facility] 0.000 [facility] x10(3)/[facility] LABORATORY Specimen Anatomical Collection Method Collection Time Receive d Time (Source) Location / / Volume Laterality Blood specimen 07/07/2017 5:15 AM 017 5:34 (specimen) EST AM EST Resulting Agency Comment Spec In Lab Daphne Shahid MD HEMATOLOGY ORDERABLES Performing Organization Address City/State/[place] [address] (ABNORMAL) APTT (07/07/2017 5:15 [...] Address City/State/ZIP Code Phon e Number [address] Magnesium (07/07/2017 5:15 AM EST) athologist Signature Magnesium 0.94 0.69 - 1.07 [facility] mmol/L [facility] LABORATORY Specimen Anatomical Collection Method Collection Time Receive d Time (Source) Location / / Volume Laterality Blood specimen 07/07/2017 5:15 AM 017 5:34 (specimen) EST AM EST Resulting Agency Comment Spec In Lab Daphne Shahid MD CHEMISTRY ORDERABLES Performing Organization Address City/[facility] Code Phon e Number [address] (ABNORMAL) Basic Metabolic Panel (non-fasting) (07/07/2017 5:15 AM EST) athologist Signature Glucose Lvl 203 (H) 65 - 199 [facility] mg/dL [facility] LABORATORY Comment: Diabetes: [...] or in patients with acute kidney failure. [email or web address] Specimen Anatomical Collection Method Collection Time Receive d Time (Source) Location / / Volume Laterality Blood specimen 07/07/2017 5:15 AM 017 5:34 (specimen) EST AM EST Resulting Agency Comment Spec In Lab Daphne Shahid MD CHEMISTRY ORDERABLES Performing Organization Address City/State/[place] [address] (ABNORMAL) Cardiac Enzymes (LEB/CGP) (07/07/2017 5:15 AM EST) P athologist Signature Troponin-T 2.07 (H) 0.00 [facility] ng/mL [facility] Comment: The 99th percentile for Troponin T is le ss than 0.01 ng/mL, any detectable cTnT concentration using this assay should be considered elevated. According to the third universal definit ion of myocardial infarction the following criteria with a clinical prese ntation consistent with acute myocardial ischemia meets the diagnosis for a myocardial infarction (NV). Detection of a rise and/or fall of [...] additional sample may be indicated. Reference: Third [place] Definition of Myocardial Infarction. Journal of the [...] Address City/State/ZIP Code Phon e Number [address] POCT Glucose (07/07/2017 5:01 AM EST) athologist Signature POC Glucose 182 65 - 199 [facility]dL [facility] Comment: Supplemental [...] Address City/State/ZIP Code Phon e Number [address] POCT Glucose (07/07/2017 4:08 AM EST) athologist Signature POC Glucose 199 65 - 199 [facility] mg/dL [facility] Comment: Supplemental [...] Address City/State/ZIP Code Phon e Number [address] POCT Glucose (07/07/2017 3:03 AM EST) athologist Signature POC Glucose 188 65 - 199 [facility] mg/dL [facility] Comment: Supplemental [...] Address City/[facility]/[place] [address] (ABNORMAL) POCT Glucose (07/07/2017 2:08 AM EST) athologist Signature POC Glucose 200 (H) 65 - 199 [facility] mg/dL [facility] Comment: Supplemental [...] Address City/[facility]/[place] [address] (ABNORMAL) POCT Glucose (07/07/2017 1:31 AM EST) athologist Signature POC Glucose 209 (H) 65 - 199 [facility] mg/dL [facility] Comment: Supplemental [...] Address City/[facility]/[place] [address] XR Chest PA or [...] POC Glucose 161 65 - 199 [facility] mg/dL [facility] Comment: Supplemental ranges: <140 mg/dL before meals <180 mg/dL all other times of the day Specimen Anatomical Collection Method Collection Time Receive d Time (Source) Location / / Volume Laterality Blood specimen 07/07/2017 12:07 7 (specimen) AM EST 12:07 AM EST Daphne Shahid MD POINT OF CARE TEST ORDERABLE S Performing Organization Address City/State/[place] [address] (ABNORMAL) APTT (07/07/2017 12:00 [...] Address City/State/ZIP Code Phon e Number [address] POCT Glucose (07/06/2017 9:55 PM EST) athologist Signature POC Glucose 109 65 - 199 [place] mg/dL [facility] [...] Address City/[facility]/ZIP Code Phon e Number [address] POCT Glucose (07/06/2017 9:04 PM EST) athologist Signature POC Glucose 120 65 - 199 [place] mg/dL [facility] [...] Address City/[facility]/ZIP Code Phon e Number [address] POCT Glucose (07/06/2017 7:45 PM EST) athologist Signature POC Glucose 158 65 - 199 [place] mg/dL [facility] [...] Address City/[facility]/[place] [address] Potassium (07/06/2017 7:40 PM EST) athologist Signature Potassium 3.9 3.5 - 5.0 [facility] mmol/L [facility] Comment: Please [...] Shahid MD CHEMISTRY ORDERABLES Performing Organization Address City/[facility]/[place] [address] (ABNORMAL) Cardiac Enzymes (LEB/CGP) (07/06/2017 7:40 PM EST) athologist Signature Troponin-T 2.27 (H) 0.00 - [place] 0.00 ng/mL [facility] Comment: The 99th percentile for Troponin T is le ss than 0.01 ng/mL, any detectable cTnT concentration using this assay should be considered elevated. According to the third universal definit ion of myocardial infarction the following criteria with a clinical prese ntation consistent with acute myocardial ischemia meets the diagnosis for a myocardial infarction (NV). Detection of a rise and/or fall of [...] additional sample may be indicated. Reference: Third [place] Definition of Myocardial Infarction. Journal of the [place] [employer] 2012;60:1581-98 CK, Total 93 0 - 200 unit/L [facility] Specimen Anatomical Collection Method Collection Time Receive d Time (Source) Location / / Volume Laterality Blood specimen 07/06/2017 7:40 PM 017 7:52 (specimen) EST PM EST Resulting Agency Comment Spec In Lab Daphne Shahid MD CHEMISTRY ORDERABLES Performing Organization Address City/[facility]/[place] [address] (ABNORMAL) POCT Glucose (07/06/2017 7:13 PM EST) P athologist Signature POC Glucose 200 (H) 65 - 199 [facility] mg/dL [facility] Comment: Supplemental [...] Address City/[facility]/[place] [address] (ABNORMAL) APTT (07/06/2017 6:15 [...] Shahid MD HEMATOLOGY ORDERABLES Performing Organization Address City/[facility]/[place] [address] (ABNORMAL) POCT Glucose (07/06/2017 [...] Address City/[facility]/[place] [address] (ABNORMAL) POCT Glucose (07/06/2017 [...] Address City/[facility]/[place] [address] (ABNORMAL) POCT Glucose (07/06/2017 [...] Address City/State/ZIP Code Phon e Number [address] POCT Glucose (07/06/2017 2:59 PM EST) athologist Signature POC Glucose 178 65 - 199 [facility] mg/dL [facility] Comment: Supplemental [...] Address City/[facility]/[place] [address] (ABNORMAL) Cardiac Enzymes (LEB/CGP) (07/06/2017 2:10 PM EST) athologist Signature Troponin-T 2.34 (H) 0.00 - [place] [facility] 0.00 ng/mL [facility] Comment: The 99th percentile for Troponin T is le ss than 0.01 ng/mL, any detectable cTnT concentration using this assay should be considered elevated. According to the third universal definit ion of myocardial infarction the following criteria with a clinical prese ntation consistent with acute myocardial ischemia meets the diagnosis for a myocardial infarction (NV). Detection of a rise and/or fall of [...] additional sample may be indicated. Reference: [place] Definition of Myocardial Infarction. Journal of the [place] [employer]iology 2012;60:1581-98 CK, Total 101 0 - 200 unit/L [facility] Specimen Anatomical Collection Method Collection Time Receive d Time (Source) Location / / Volume Laterality Blood specimen 07/06/2017 2:10 PM 017 2:26 (specimen) EST PM EST Resulting Agency Comment Spec In Lab Daphne Shahid MD CHEMISTRY ORDERABLES Performing Organization Address [facility] Phon e Number [address] POCT Glucose (07/06/2017 2:08 PM EST) P athologist Signature POC Glucose 192 65 - 199 [facility] mg/dL [facility] Comment: Supplemental [...] Address City/[facility]/[place] [address] POCT Glucose (07/06/2017 1:04 PM EST) P athologist Signature POC Glucose 162 65 - 199 [facility] mg/dL [facility] Comment: Supplemental [...] Address City/[facility]/[place] [address] [facility] [address]ORY Drive POCT Glucose (07/06/2017 12:05 PM EST) P athologist Signature POC Glucose 196 65 - 199 [facility] mg/dL [facility] Comment: Supplemental [...] Address City/[facility]/ZIP Code Phon e Number [address] EKG 12 Lead (07/06/2017 12:00 PM EST) Component Value Ref Range Test Analysis Performed Pathologis t Method Time At Signature Ventricular rate 91 BPM MUSE SYSTEM Atrial Rate 91 BPM MUSE SYSTEM P-R Interval 140 ms MUSE SYSTEM QRS Duration 94 ms MUSE SYSTEM Q-T Interval 394 ms MUSE SYSTEM QTC Calculated 484 ms MUSE SYSTEM (Bezet) Calculated P [place] 36 degrees MUSE SYSTEM Calculated R [place] -19 degrees MUSE SYSTEM Calculated T [place] 104 degrees MUSE SYSTEM INTERPRETATION Normal sinus rhythm MUSE SYSTEM 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) ST & T wave abnormality, consider lateral ischemia Abnormal ECG When compared with ECG of 05-JUL-2017 20:39, No significant change was found Confirmed by MD Luci, Taurus Braun ([id number]) on 07/06/2017 5:07:33 PM Specimen Anatomical Collection [...] MD BLOOD BANK ORDERABLES Performing Organization Address City/[facility]/[place] [address] Antibody screen (07/06/2017 12:00 PM EST) Patholo gist Method Time Signature Ab Screen Negative [facility] LABORATORY Expires at 07/09/2017 [facility] [id number] on: [facility] Specimen Anatomical Collection Method Collection Time Receive d Time (Source) Location / / Volume Laterality Blood specimen 07/06/2017 12:00 7 (specimen) PM EST 12:24 PM EST Resulting Agency Comment Spec In Lab Daphne Shahid MD BLOOD BANK ORDERABLES Performing Organization Address City/[facility]/[place] [address] ABO/Rh Typing (07/06/2017 12:00 PM EST) P athologist Signature ABORh Type O Pos [facility] Specimen Anatomical Collection Method Collection Time Receive d Time (Source) Location / / Volume Laterality Blood specimen 07/06/2017 12:00 7 (specimen) PM EST 12:24 PM EST Resulting Agency Comment Spec In Lab Daphne Shahid MD BLOOD BANK ORDERABLES Performing Organization Address City/[facility]/[place] [address] Prothrombin Time (07/06/2017 11:24 [...] Shahid MD HEMATOLOGY ORDERABLES Performing Organization Address City/[facility]/ZIP Code Phon e Number [address] (ABNORMAL) APTT (07/06/2017 11:24 [...] Shahid MD HEMATOLOGY ORDERABLES Performing Organization Address City/[facility]/[place] [address] POCT Glucose (07/06/2017 11:02 AM EST) P athologist Signature POC Glucose 187 65 - 199 [facility] mg/dL [facility] Comment: Supplemental [...] Address City/[facility]/[place] [address] POCT Glucose (07/06/2017 10:18 AM EST) P athologist Signature POC Glucose 193 65 - 199 [place] mg/dL [facility] [...] Organization Address City/State/[place] [address] POCT Glucose (07/06/2017 9:25 AM EST) athologist Signature POC Glucose 182 65 - 199 [facility] mg/dL [facility] Comment: Supplemental ranges: <140 mg/dL before meals <180 mg/dL all other times of the day Specimen Anatomical Collection Method Collection Time Receive d Time (Source) Location / / Volume Laterality Blood specimen 07/06/2017 9:25 AM 017 9:25 (specimen) EST AM EST Daphne Shahid MD POINT OF CARE TEST ORDERABLE S Performing Organization Address City/State/[place] [address] (ABNORMAL) Cardiac Enzymes (LEB/CGP) (07/06/2017 8:10 AM EST) athologist [employer] Troponin-T 2.26 (H) 0.00 - [place] 0.00 ng/mL [facility] Comment: The 99th percentile for Troponin T is le ss than 0.01 ng/mL, any detectable cTnT concentration using this assay should be considered elevated. According to the third universal definit ion of myocardial infarction the following criteria with a clinical prese ntation consistent with acute myocardial ischemia meets the diagnosis for a myocardial infarction (NV). Detection of a rise and/or fall of [...] additional sample may be indicated. Reference: [place] Definition of Myocardial Infarction. Journal of the [place] [employer] 2012;60:1581-98 CK, Total 124 0 - 200 unit/L [facility] Specimen Anatomical Collection Method Collection Time Receive d Time (Source) Location / / Volume Laterality Blood specimen 07/06/2017 8:10 AM 017 8:23 (specimen) EST AM EST Resulting Agency Comment Spec In Lab Daphne Shahid MD CHEMISTRY ORDERABLES Performing Organization Address City/[facility]/ZIP Code Phon e Number [address] Magnesium (07/06/2017 8:10 AM EST) P athologist Signature Magnesium 0.84 0.69 - 1.07 [facility] mmol/L [facility] Specimen Anatomical Collection Method Collection Time Receive d Time (Source) Location / / Volume Laterality Blood specimen 07/06/2017 8:10 AM 017 8:21 (specimen) EST AM EST Resulting Agency Comment Spec In Lab Daphne Shahid MD CHEMISTRY ORDERABLES Performing Organization Address City/[facility] [place] [address] (ABNORMAL) Basic Metabolic Panel (non-fasting) (07/06/2017 8:10 AM EST) P athologist Signature Glucose Lvl 199 65 - 199 [facility] mg/dL [facility] Comment: Diabetes: [...] or in patients with acute kidney failure. [email or web address] Specimen Anatomical Collection Method Collection Time Receive d Time (Source) Location / / Volume Laterality Blood specimen 07/06/2017 8:10 AM 017 8:21 (specimen) EST AM EST Resulting Agency Comment Spec In Lab Daphne Shahid MD CHEMISTRY ORDERABLES Performing Organization Address City/[facility]/[place] [address] POCT Glucose (07/06/2017 7:34 AM EST) P athologist Signature POC Glucose 198 65 - 199 [facility] mg/dL [facility] Comment: Supplemental [...] Address City/[facility]/[place] [address] POCT Glucose (07/06/2017 7:03 AM EST) P athologist Signature POC Glucose 181 65 - 199 [place] mg/dL [facility] [...] Address City/State/ZIP Code Phon e Number [address] XR Chest PA or [...] Signature POC Glucose 172 65 - 199 [facility] mg/dL [facility] Comment: Supplemental ranges: <140 mg/dL before meals <180 mg/dL all other times of the day Specimen Anatomical Collection Method Collection Time Receive d Time (Source) Location / / Volume Laterality Blood specimen 07/06/2017 6:21 AM 017 6:21 (specimen) EST AM EST Daphne Shahid MD POINT OF CARE TEST ORDERABLE S Performing Organization Address City/State/[place] [address] POCT Glucose (07/06/2017 5:08 AM EST) athologist Signature POC Glucose 154 65 - 199 [facility] mg/dL [facility] Comment: Supplemental ranges: <140 mg/dL before meals <180 mg/dL all other times of the day Specimen Anatomical Collection Method Collection Time Receive d Time (Source) Location / / Volume Laterality Blood specimen 07/06/2017 5:08 AM 017 5:08 (specimen) EST AM EST Daphne Shahid MD POINT OF CARE TEST ORDERABLE S Performing Organization Address City/State/[place] [address] POCT Glucose (07/06/2017 4:05 AM EST) athologist Signature POC Glucose 142 65 - 199 [facility] mg/dL [facility] Comment: Supplemental [...] Address City/[facility]/ZIP Code Phon e Number [address] POCT Glucose (07/06/2017 3:00 AM EST) athologist [facility] POC Glucose 116 65 - 199 [facility] mg/dL [facility] Comment: Supplemental [...] Address City/[facility]/ZIP Code Phon e Number [address] Potassium (07/06/2017 2:20 AM EST) athologist [facility] Potassium 3.9 3.5 - 5.0 [facility] mmol/L [facility] Comment: Please [...] Shahid MD CHEMISTRY ORDERABLES Performing Organization Address City/[facility]/ZIP Code Phon e Number [address] Differential, Automated (07/06/2017 2:20 AM EST) athologist [facility] Neutrophils % 72.9 % [facility] Neutr Abs (ANC) 5.53 1.70 - [facility] 6.10 [facility] x10(3)/[facility] LABORATORY Lymphocytes % 16.4 % [facility] Lymphocytes Abs 1.2 0.9 - 3.2 [facility] x10(3)/[facility] LABORATORY Monocytes % 9.4 % [facility] Monocyte Abs 0.7 0.3 - 0.9 [facility] x10(3)/[facility] LABORATORY Eosinophils % 0.5 % [facility] Eosinophils Abs 0.0 0.0 - 0.4 [facility] x10(3)/[facility] LABORATORY Basophils % 0.4 % [facility] Basophils Abs 0.0 0.0 - 0.1 [facility] x10(3)/[facility] [...] 0.04 x10(3)/[facility] Specimen Anatomical Collection Method Collection Time Receive d Time (Source) Location / / Volume Laterality Blood specimen 07/06/2017 2:20 AM 017 2:33 (specimen) EST AM EST Resulting Agency Comment Spec In Lab Daphne Shahid MD HEMATOLOGY ORDERABLES Performing Organization Address City/State/[place] [address] (ABNORMAL) Hemogram (07/06/2017 2:20 AM EST) Analysis Performed At Patho logist Time Signature WBC 7.6 4.0 - 9.5 [facility] x10(3)/[facility] LABORATORY RBC 4.52 (L) 4.58 - [facility] 5.54 [facility] x10(6)/[facility] LABORATORY Hemoglobin 13.4 (L) 13.7 - [place] 16.5 gm/dL [facility] Hematocrit 39.7 (L) 40.5 - [place] 48.5 % [facility] MCV 87.8 82.9 - [facility] RYAN 93.1 [facility] LABORATORY MCH 29.6 27.5 - [place] 32.1 pg [facility] MCHC 33.8 32.0 - [place] 35.7 gm/dL [facility] Platelets 189 145 - 357 [facility] x10(3)/[facility] LABORATORY RDWSD 45.6 (H) 36.0 - [facility] 45.0 [facility] LABORATORY RDWCV 14.3 (H) 11.4 - [facility] RYAN 13.8 % [facility] MPV 9.1 7.6 - 12.9 [facility] LABORATORY nRBC % Auto 0.0 % [facility] nRBC Abs Auto 0.000 0.000 - [facility] RYAN 0.000 [facility] x10(3)/[facility] LABORATORY Specimen Anatomical Collection Method Collection Time Receive d Time (Source) Location / / Volume Laterality Blood specimen 07/06/2017 2:20 AM 017 2:33 (specimen) EST AM EST Resulting Agency Comment Spec In Lab Daphne Shahid MD HEMATOLOGY ORDERABLES Performing Organization Address City/State/[place] [address] (ABNORMAL) APTT (07/06/2017 2:20 [...] Address City/State/ZIP Code Phon e Number [address] POCT Glucose (07/06/2017 2:20 AM EST) athologist Signature POC Glucose 115 65 - 199 [facility] mg/dL [facility] Comment: Supplemental ranges: <140 mg/dL before meals <180 mg/dL all other times of the day Specimen Anatomical Collection Method Collection Time Receive d Time (Source) Location / / Volume Laterality Blood specimen 07/06/2017 2:20 AM 017 2:20 (specimen) EST AM EST Daphne Shahid MD POINT OF CARE TEST ORDERABLE S Performing Organization Address City/State/[place] [address] (ABNORMAL) Cardiac Enzymes (LEB/CGP) (07/06/2017 2:20 AM EST) athologist Signature Troponin-T 2.13 (H) 0.00 - [place] 0.00 ng/mL [facility] Comment: The 99th percentile for Troponin T is le ss than 0.01 ng/mL, any detectable cTnT concentration using this assay should be considered elevated. According to the third universal definit ion of myocardial infarction the following criteria with a clinical prese ntation consistent with acute myocardial ischemia meets the diagnosis for a myocardial infarction ([place]). Detection of a rise and/or fall of [...] additional sample may be indicated. Reference: Third [place] Definition of Myocardial Infarction. Journal of the [...] Organization Address City/State/[place] [address] (ABNORMAL) Hemoglobin A1c (07/06/2017 [...] with hemoglobinopathies. Additional resources are available on [facility] website. Macario HAMMOND, Ruthann J, Deysi R, et al. ??Tr anslating the A1C assay into estimated average glucose values. ??Diabetes Care 2008:31(8):0853-0753. Specimen Anatomical Collection Method Collection Time Receive d Time (Source) Location / / Volume Laterality Blood specimen 07/06/2017 2:20 AM 017 2:34 (specimen) EST AM EST Resulting Agency Comment Spec In Lab Daphne Shahid MD CHEMISTRY ORDERABLES Performing Organization Address City/State/[place] [address] (ABNORMAL) Lipid Panel (07/06/2017 2:20 AM EST) [facility] Method Time Signature Chol, Total 150 <=239 [place] mg/dL [facility] LABORATORY Triglycerides 129 <=199 [facility] mg/dL [facility] LABORATORY HDL 32 (L) >=40 [facility] mg/dL [facility] LABORATORY LDL Cholesterol 92 <=190 [place] mg/dL [facility] LAB[facility]ORY Chol/HDL Ratio 4.7 ratio [facility] Lipid See Note [place] Interpretation [facility] Comment: Lipid management should be guided by a p atient? s ASCVD risk, goals and preferences. ACC/AHA Guidelines recommend high intens ity statin if clinical ASCVD or LDL greater than or equal to 190 mg/dL. http://tinyurl.com/CPN-TJE-Drknrvwym Adults aged 40-75 with LDL 70-189 mg/dL should have their 10 year ASCVD risk estimated with the ACC/AHA ASCVD risk es timator http://tools.acc.org/SAGVE-Sipd-Hlqzwwnq r/ Statin should be discussed if risk [...] Shahid MD CHEMISTRY ORDERABLES Performing Organization Address City/[facility]/ZIP Code Phon e Number [address] POCT Glucose (07/06/2017 1:09 AM EST) athologist Signature POC Glucose 121 65 - 199 [facility] mg/dL [facility] Comment: Supplemental [...] Address City/[facility]/[place] [address] POCT Glucose (07/06/2017 12:06 AM EST) athologist Signature POC Glucose 147 65 - 199 [facility] RYAN mg/dL [facility] Comment: [...] Organization Address City/State/[place] [address] (ABNORMAL) POCT Glucose (07/05/2017 10:56 PM EST) athologist Signature POC Glucose 200 (H) 65 - 199 [facility] mg/dL [facility] Comment: Supplemental ranges: <140 mg/dL before meals <180 mg/dL all other times of the day Specimen Anatomical Collection Method Collection Time Receive d Time (Source) Location / / Volume Laterality Blood specimen 07/05/2017 10:56 7 (specimen) PM EST 10:56 PM EST Daphne Shahid MD POINT OF CARE TEST ORDERABLE S Performing Organization Address City/State/[place] [address] [address] (ABNORMAL) POCT Glucose (07/05/2017 10:05 PM EST) athologist Signature POC Glucose 225 (H) 65 - 199 [facility] mg/dL [facility] LABORATORY Comment: Supplemental ranges: <140 mg/dL before meals <180 mg/dL all other times of the day Specimen Anatomical Collection Method Collection Time Receive d Time (Source) Location / / Volume Laterality Blood specimen 07/05/2017 10:05 7 (specimen) PM EST 10:05 PM EST Daphne Shahid MD POINT OF CARE TEST ORDERABLE S Performing Organization Address City/State/[place] [address] (ABNORMAL) POCT Glucose (07/05/2017 9:02 PM EST) athologist Signature POC Glucose 301 (H) 65 - 199 [facility] mg/dL [facility] Comment: Supplemental ranges: <140 mg/dL before meals <180 mg/dL all other times of the day Specimen Anatomical Collection Method Collection Time Receive d Time (Source) Location / / Volume Laterality Blood specimen 07/05/2017 9:02 PM 017 9:02 (specimen) EST PM EST Daphne Shahid MD POINT OF CARE TEST ORDERABLE S Performing Organization Address City/State/[place] [address] XR Chest PA or [...] 474 ms MUSE SYSTEM (Bezet) Calculated P [place] 50 degrees MUSE SYSTEM Calculated R [place] -28 degrees MUSE SYSTEM Calculated T [place] 90 degrees MUSE SYSTEM INTERPRETATION Sinus tachycardia [...] (ABNORMAL) Differential, Automated (07/05/2017 8:20 PM EST) [facility] gist Method Time Signature Neutrophils % 88.4 % [facility] LABORATORY Neutr Abs (ANC) 9.08 (H) 1.70 - [facility] 6.10 [facility] x10(3)/[facility] LABORATORY Lymphocytes % 7.0 % [facility] LABORATORY Lymphocytes Abs 0.7 (L) 0.9 - 3.2 [facility] x10(3)/[facility] LABORATORY Monocytes % 3.7 % [facility] LABORATORY Monocyte Abs 0.4 0.3 - 0.9 [facility] x10(3)/[facility] LABORATORY Eosinophils % 0.1 % [facility] LABORATORY Eosinophils Abs 0.0 0.0 - 0.4 [facility] x10(3)/[facility] LABORATORY Basophils % 0.2 % [facility] LABORATORY Basophils Abs 0.0 0.0 - 0.1 [facility] x10(3)/[facility] LABORATORY Immature Gran % 0.60 % [facility] [...] Organization Address City/State/[place] [address] (ABNORMAL) Hemogram (07/05/2017 8:20 PM EST) Analysis Performed At Patho logist Time Signature WBC 10.3 (H) 4.0 - 9.5 [facility] R[facility]AN x10(3)/[facility] LABORATORY RBC 4.64 4.58 - [place] 5.54 [facility] x10(6)/[facility] LABORATORY Hemoglobin 14.1 13.7 - [place] 16.5 gm/dL [facility] LABORATORY Hematocrit 40.8 40.5 - [facility] 48.5 % [facility] LABORATORY MCV 87.9 82.9 - [facility] 93.1 [facility] LABORATORY MCH 30.4 27.5 - [place] 32.1 pg [facility] LABORATORY MCHC 34.6 32.0 - [facility] 35.7 gm/dL [facility] LABORATORY Platelets 204 145 - 357 [facility] x10(3)/[facility] LABORATORY RDWSD 46.1 (H) 36.0 - [facility] 45.0 [facility] LABORATORY RDWCV 14.5 (H) 11.4 - [facility] 13.8 % [facility] LABORATORY MPV 9.7 7.6 - 12.9 [facility] nRBC % Auto 0.0 % [facility] LABORATORY nRBC Abs Auto 0.000 0.000 - [facility] 0.000 [facility] x10(3)/[facility] LABORATORY Specimen Anatomical Collection Method Collection Time Receive d Time (Source) Location / / Volume Laterality Blood specimen 07/05/2017 8:20 PM 017 8:27 (specimen) EST PM EST Resulting Agency Comment Spec In Lab Daphne Shahid MD HEMATOLOGY ORDERABLES Performing Organization Address City/State/ZIP Code Phon e Number [place] [address] APTT (07/05/2017 8:20 PM [...] Organization Address City/State/[place] [address] (ABNORMAL) Cardiac Enzymes (LEB/CGP) (07/05/2017 8:20 PM EST) athologist [facility] Troponin-T 2.11 (H) 0.00 - [facility] 0.00 ng/mL [facility] Comment: The 99th percentile for Troponin T is le ss than 0.01 ng/mL, any detectable cTnT concentration using this assay should be considered elevated. According to the third universal definit ion of myocardial infarction the following criteria with a clinical prese ntation consistent with acute myocardial ischemia meets the diagnosis for a myocardial infarction (NV). Detection of a rise and/or fall of [...] additional sample may be indicated. Reference: Third [place] Definition of Myocardial Infarction. Journal of the [place] College [employer] 2012;60:1581-98 CK, Total 149 0 - 200 unit/L [facility] LABORATORY Specimen Anatomical Collection Method Collection Time Receive d Time (Source) Location / / Volume Laterality Blood specimen 07/05/2017 8:20 PM 017 8:27 (specimen) EST PM EST Resulting Agency Comment Spec In Lab Daphne Shahid MD CHEMISTRY ORDERABLES Performing Organization Address City/[facility]/ZIP [facility] [place] [address] (ABNORMAL) Magnesium (07/05/2017 8:20 PM EST) P athologist Signature Magnesium 0.68 (L) 0.69 - 1.07 [facility] mmol/L [facility] LABORATORY Specimen Anatomical Collection Method Collection Time Receive d Time (Source) Location / / Volume Laterality Blood specimen 07/05/2017 8:20 PM 017 8:27 (specimen) EST PM EST Resulting Agency Comment Spec In Lab Daphne Shahid MD CHEMISTRY ORDERABLES Performing Organization Address City/[facility]/[place] [address] (ABNORMAL) Basic Metabolic Panel (non-fasting) (07/05/2017 8:20 PM EST) P athologist Signature Glucose Lvl 321 (H) 65 - 199 [facility] mg/dL [facility] Comment: Diabetes: [...] or in patients with acute kidney failure. http://[employer]/DHnkdep http://[employer]/DHMCnkf Specimen Anatomical Collection Method Collection Time Receive d Time (Source) Location / / Volume Laterality Blood specimen 07/05/2017 8:20 PM 017 8:27 (specimen) EST PM EST Resulting Agency Comment Spec In Lab Daphne Shahid MD CHEMISTRY ORDERABLES Performing Organization Address City/State/[place] [address] (ABNORMAL) POCT Glucose (07/05/2017 7:32 PM EST) P athologist Signature POC Glucose 296 (H) 65 - 199 [facility] mg/dL [facility] Comment: Supplemental ranges: <140 mg/dL before meals <180 mg/dL all other times of the day Specimen Anatomical Collection Method Collection Time Receive d Time (Source) Location / / Volume Laterality Blood specimen 07/05/2017 7:32 PM 017 7:32 (specimen) EST PM EST Daphne Shahid MD POINT OF CARE TEST ORDERABLE S Performing Organization Address City/State/[place] [address] CARDIAC CATHETERIZATION (07/05/2017 6:47 PM EST) Anatomical Region Laterality Modality Other Specimen (Source) Anatomical Location Collection Method / Collectio n Time Received Time / Laterality Volume Narrative 07/05/2017 7:27 PM EST ?[facility] ? Cardiac Cathete rization/Intervention Report ? Patient Name: Gregory Hoang ? Procedure Date: 07/05/2017 ? A #: [id number] ? Primary Physician: Clarisa, Jet T ? Case #: [id number] ? File Name: [id number] ? Catheterization Order Number: [id number] ? [facility] ? Final Report [place], [place] ? Patient Name: ? Gregory Natalya ?ID#: ?[id number] ? : ?1945 ? Procedure Date: ? [...] presented with: non -STEMI (w/i 7 days). [place] ?[employer] angina c lass was IV. 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 ? Jet Mckenna M.D. ? Electronically Signed by: Jet bunch M.D. ? Report Finalized: 07/05/2017 ??19:23 ? Report Last Ammended: 10/26/2017 ??10:29 ? Procedure Note Jet Mckenna MD - 10/26/2017Formatt ing of this note might be different from the original. [facility] Cardiac Catheterization/Intervention Re port Patient Name: Gregory Hoang Procedure Date: 07/05/2017 A #: [id number] Primary Physician: Jet Mckenna Case #: [id number] File Name: [id number] Catheterization Order Number: [id number] [facility] Final Report [place], [place] Patient Name: Gregory Hoang ID#: [id number] : 1945 Procedure Date: July 05, [...] presented with: non-STEMI ( w/i 7 days). [place] [employer] angina class was IV. 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 Jet Mckenna M.D. Electronically Signed [...] Mccollum ? (Age): 1945(72y) Med Rec#: ? [id number] ?Sex: ?M ? Site Loc: ? [facility] ?Ht / Wt: ??173(cm)/86(kg) Pt. Loc: ?CCU ? BSA: ?2 Study Date: ?? 07/05/2017 ?Pt. Type: Inpatient Tape: ? Referring: Daphne Shahid ([id number]) Referring: MANDA ALCANTAR Reading: Blade Preston ([id number]) Electrical High Tension Tester: Dayami Paula BA, [facility] [...] E-wave Vmax ?0.8 ?m/sec ? MV deceleration [id number] ?msec ? MV A-wave Vmax ?0.8 ?m/sec [...] ? Mid-Inferior ?Akinetic ? Mid-Inferoseptal ?Hypokinetic ? [place]anger-Septal ? Akinetic ? [place]-Anterior ? Hypokinetic ? [place]-Lateral ?Hypokinetic ? [place]-Inferior ? Akinetic ? [place]-Tip ?Akinetic ? This report has been electronically sign ed by: _ Blade Preston MD ? 07/06/2017 08 :53:15 Images reviewed and interpretation [facility] Cardiac Ultrasound Laboratory Procedure Note Blade Preston MD - 07/06/2017Formatt ing of this note might be different from the original. Procedure: Transthoracic Echocardiogram Patient: NATALYA MCBRIDE(Age): [birth year]72y) Med Rec#: [id number] Sex: M Site Loc: [facility] Ht / Wt: 173(cm)/86(kg) Pt. Loc: CCU BSA: 2 Study Date: 07/05/2017 Pt. Type: Inpatie nt Tape: Referring: Daphne Shahid ([id number]) Referring: MANDA ALCANTAR Reading: Blade Preston ([id number]) Electrical High Tension Tester: Dayami Paula BA, [facility] [...] MV E-wave Vmax 0.8 m/sec MV deceleration [id number] msec MV A-wave Vmax 0.8 m/sec MV [...] Hypokinetic Mid-Posterolateral Hypokinetic Mid-Inferior Akinetic Mid-Inferoseptal Hypokinetic Sanger-Septal Akinetic Sanger-Anterior Hypokinetic S[place]-Lateral Hypokinetic Sanger-Inferior Akinetic Sanger-Tip Akinetic This report has been electronically sign ed by: _ Blade Preston MD 07/06/2017 08:53:15 Images reviewed and interpretation ver ied [facility] Cardiac Ultrasound Laboratory Daphne Shahid MD ECHO ORDERABLES Differential, Automated (07/05/2017 4:55 PM EST) athologist Signature Neutrophils % 77.0 % [facility] LABORATORY Neutr Abs (ANC) 5.26 1.70 - [facility] 6.10 [facility] x10(3)/[facility] LABORATORY Lymphocytes % 13.3 % [facility] LABORATORY Lymphocytes Abs 0.9 0.9 - 3.2 [facility] x10(3)/[facility] LABORATORY Monocytes % 8.2 % [facility] LABORATORY Monocyte Abs 0.6 0.3 - 0.9 [facility] x10(3)/[facility] LABORATORY Eosinophils % 0.7 % [facility] LABORATORY Eosinophils Abs 0.0 0.0 - 0.4 [facility] x10(3)/[facility] LABORATORY Basophils % 0.4 % [facility] LABORATORY Basophils Abs 0.0 0.0 - 0.1 [facility] x10(3)/[facility] [...] 0.04 x10(3)/[facility] LABORATORY Specimen Anatomical Collection Method Collection Time Receive d Time (Source) Location / / Volume Laterality Blood specimen 07/05/2017 4:55 PM 017 5:24 (specimen) EST PM EST Resulting Agency Comment Spec In Lab Daphne Shahid MD HEMATOLOGY ORDERABLES Performing Organization Address City/State/[place] [address] (ABNORMAL) Hemogram (07/05/2017 4:55 PM EST) Analysis Performed At Patho logist Time Signature WBC 6.8 4.0 - 9.5 [facility] x10(3)/[facility] LABORATORY RBC 4.67 4.58 - [facility] 5.54 [facility] x10(6)/[facility] LABORATORY Hemoglobin 14.0 13.7 - [place] 16.5 gm/dL [facility] LABORATORY Hematocrit 41.0 40.5 - [place] 48.5 % [facility] LABORATORY MCV 87.8 82.9 - [facility] 93.1 [facility] LABORATORY MCH 30.0 27.5 - [place] 32.1 pg [facility] LABORATORY MCHC 34.1 32.0 - [place] 35.7 gm/dL [facility] LABORATORY Platelets 197 145 - 357 [facility] x10(3)/[facility] LABORATORY RDWSD 46.4 (H) 36.0 - [place] 45.0 [facility] LABORATORY RDWCV 14.5 (H) 11.4 - [place] 13.8 % [facility] LABORATORY MPV 9.7 7.6 - 12.9 [facility] LABORATORY nRBC % Auto 0.0 % [facility] LABORATORY nRBC Abs Auto 0.000 0.000 - [place] 0.000 [facility] x10(3)/[facility] LABORATORY Specimen Anatomical Collection Method Collection Time Receive d Time (Source) Location / / Volume Laterality Blood specimen 07/05/2017 4:55 PM 017 5:24 (specimen) EST PM EST Resulting Agency Comment Spec In Lab Daphne Shahid MD HEMATOLOGY ORDERABLES Performing Organization Address City/State/[place] [address] (ABNORMAL) Cardiac Enzymes (LEB/CGP) [...] meets the diagnosis for a myocardial infarction (NV). Detection of a rise and/or fall of [...] additional sample may be indicated. Reference: Third [place] Definition of Myocardial Infarction. Journal of the [place] College of Cardiology 2012;60:1581-98 CK, Total 191 0 - 200 unit/L [facility] LABORATORY Specimen Anatomical Collection Method Collection Time Receive d Time (Source) Location / / Volume Laterality Blood specimen 07/05/2017 4:55 PM 017 5:56 (specimen) EST PM EST Resulting Agency Comment Spec In Lab Daphne Shahid MD CHEMISTRY ORDERABLES Performing Organization Address City/[facility]/Z[place] [address] (ABNORMAL) pro-Brain Natriuretic Peptide (07/05/2017 4:55 PM EST) P athologist Signature ProBNP 1,598 (H) <=125 [facility] pg/mL [facility] LABORATORY Specimen Anatomical Collection Method Collection Time Receive d Time (Source) Location / / Volume Laterality Blood specimen 07/05/2017 4:55 PM 017 5:24 (specimen) EST PM EST Resulting Agency Comment Spec In Lab Daphne Shahid MD CHEMISTRY ORDERABLES Performing Organization Address City/State/[place] [address] Magnesium (07/05/2017 4:55 PM EST) P athologist Signature Magnesium 0.78 0.69 - 1.07 [facility] mmol/L [facility] LABORATORY Specimen Anatomical Collection Method Collection Time Receive d Time (Source) Location / / Volume Laterality Blood specimen 07/05/2017 4:55 PM 017 5:24 (specimen) EST PM EST Resulting Agency Comment Spec In Lab Daphne Shahid MD CHEMISTRY ORDERABLES Performing Organization Address City/State/Z[place] [address] (ABNORMAL) Basic Metabolic Panel (non-fasting) (07/05/2017 4:55 PM EST) P athologist Signature Glucose Lvl 230 (H) 65 - 199 [facility] mg/dL [facility] LABORATORY Comment: Diabetes: [...] or in patients with acute kidney failure. http://[email or web address]/DHnkdep http://[email or web address]/DHMCnkf Specimen Anatomical Collection Method Collection Time Receive d Time (Source) Location / / Volume Laterality Blood specimen 07/05/2017 4:55 PM 017 5:24 (specimen) EST PM EST Resulting Agency Comment Spec In Lab Daphne Shahid MD CHEMISTRY ORDERABLES Performing Organization Address City/[facility]/[place] [address] (ABNORMAL) APTT (07/05/2017 4:55 [...] Shahid MD HEMATOLOGY ORDERABLES Performing Organization Address City/[facility]/[place] [address] (ABNORMAL) POCT Glucose (07/05/2017 4:53 PM EST) athologist Signature POC Glucose 208 (H) 65 - 199 [facility] mg/dL [facility] LABORATORY Comment: Supplemental [...] Address City/[facility]/[place] [address] EKG 12 Lead (07/05/2017 4:32 PM EST) Component Value Ref Range Test Analysis Performed Pathologis t Method Time At Signature Ventricular rate 97 BPM MUSE SYSTEM Atrial Rate 97 BPM MUSE SYSTEM P-R Interval 148 ms MUSE SYSTEM QRS Duration 96 ms MUSE SYSTEM Q-T Interval 364 ms MUSE SYSTEM QTC Calculated 462 ms MUSE SYSTEM (Bezet) Calculated P [place] 48 degrees MUSE SYSTEM Calculated R [place] -33 degrees MUSE SYSTEM Calculated T [place] 98 degrees MUSE SYSTEM INTERPRETATION Normal sinus [...] Coronary atherosclerosis of unspecified type of vessel, point lay ira or graft Cardiomyopathy, ischemic Other specified forms [...] dose on Wed07/07/17 at 2100, Until Discontinued, [place] teeth, Routine Given 07/08/2017 10:06 PM EST [...] or norepinephrine is ineffective. Call pager # [phone] if initiated. Rate/Dose Change 07/08/2017 7:01 PM [...] if phenyleprine and/or vasopressin ineffective.Call pager # [phone] if initiated., Routine Rate/Dose Change 07/09/2017 1:24 [...] L/min/M2. Maximum volume 2 L. Call warehouse puller for additional fluid orders: pager #[phone]. Rate/Dose Verify 07/08/2017 4:00 AM EST 100 [...] Denice Jacobson, VAMSI)[id number] (Stopped - Provider: Denice Jacboson, VAMSI)[id number] (New Bag - Provider: Myrna Young, [...] in this encounter Care Teams Electric Motor Repairman Relationship Specialty Start Date End Date Lovely Vicente MD PCP - General 04/16/[address] [place] [address] [address] [facility] [address] [place] [address] documented as of this encounter
--- OUTSIDE RECORDS SUMMARY | 2022-05-22 08:23 | XMS_ITS | Encounter Summary ---
:1945 [place] [address] Care Team Providers Name Role Phone Lovely Vicente MD Primary Care Provider Reason for Visit Auth/Cert Specialty Diagnoses / Procedures Referred By Contact Refer red To Contact Diagnoses STEMI (ST elevation myocardial infarction) NSTEMI STEMI Procedures CARDIAC CATHETERIZATION NAYE IPI Referral ID Status Reason Start Date Expiration Date Visits Requ ested Visits Authorized [id number] 1 1 Encounter Details Date Type Department Care Team Description 07/07/2017 Anesthesia Event Main Operating Room Yifan Jaime MD [facility] [place] [address] [facility] Ginny Murray MD [facility] [place] [address] [facility] [place] [address] Anesthesia Record Procedure Summary Procedure Name [...] 2342 LDA Cath/EP Sheath 07/05/17; 0606; 8 Liberian 07/05/17 0606 by [id number] by (Fr); Right; Femoral [place], Yane Cook, RN PIV 07/05/17; 1720; median 07/05/17 1720 by 07/11/17 2355 by vein (underside of arm), Prior, Yanet Maza, Angela Mccurdy, left; 18 gauge; removed SANDBLAST CARVER per policy/procedure; 07/11/17; 2355 Intra-Aortic Balloon 07/05/17; [...] Miller, Carrie L, Type: Cuffed; ETT Size: DEVELOPMENT TEAM LEAD 8 mm; Santiago Blade: 2; Notes: Asleep, [...] All Anesthesia Providers: Anesthesiologist: Yifan Perez MD Wire Turning Machine Operator: Ginny Murray MD Most Recent [...] Zulma Dolan MD [facility] [place], [place] [address] (Wo rk) 05/28/2022 Laboratory Appointment Lab 05/28/2022 Office Visit Cardiology Zulma Dolan MD [facility] [place] [address] Liz Poole PA [facility] [place] [address] 06/10/2022 Office Visit Dermatology Laura Scherer MD [facility] [address] [facility] [place], [place] 0[address] (Wo rk) documented as of [...] mg documented in this encounter Care Teams Perioperative Nurse Relationship Specialty Start Date End Date Lovely Vicente MD PCP - General 04/16/[address] [place] [address] [place] [address] documented as of this encounter
--- OUTSIDE RECORDS SUMMARY | 2022-05-22 08:23 | XMS_ITS | Encounter Summary ---
:1945 Author Organization [facility] Address [facility] [place] [address] Care Team Providers Name Role Phone Lovely Vicente MD Primary Care Provider Reason for Visit Auth/Cert Specialty Diagnoses / Procedures Referred By Contact Refer red To Contact Diagnoses STEMI (ST elevation myocardial infarction) NSTEMI STEMI Procedures CARDIAC CATHETERIZATION NAYE IPI Referral ID Status Reason Start Date Expiration Date Visits Requ ested Visits Authorized [id number] 1 1 Encounter Details Date Type Department Care Team Description 07/07/2017 Surgery Main Operating Room Yuan Webber, @ CABG, USING ARTERIAL Barbara Ocampo MD GRAFT;SINGLE ARTERIAL Hospital [facility] GRAFT (WRVU 33.75) [facility] [address] [place]idd[place] [address] SURGERY [phone] [place], [place] [address] (Wo rk) Social History Tobacco [...] in this encounter Discharge Summaries Martha Teague, RECOVERY MANAGER - 07/14/2017 9:38 AM EST Inpatient - Discharge Summary Patient Name: Gregory Hoang Patient Age: 72 y.o. Birthdate: 1945 Language: Kuwaiti Race: White Ethnicity: Not nor Admit Date: [...] @ 1:20p Patient to follow-up with Supervisor Sample/heart failure team in one week. An appointment will be made for you. You may call [phone] Patient to follow-up with Cardiac Surgery, Dr. Yuan Webber, in ~ 4 weeks with CXR, EKG. Inpatient Provider Contact Information: [facility] Section of Cardiac Surgery [facility] [id number] FAX [phone] Discharge Diagnoses (Hospital Problems) Primary Diagnoses: CAD [...] [facility] ENDOSCOPY ??? PRO ENDOSCOPY W/VIDEO-ASST [...] by mouth daily. 90 tablet 3 07/05/2017 [id number] ??? ascorbic acid, vitamin C, (VITAMIN C) [...] hospital and ruled infor non-ST segment elevation MO. This almost certainly represents the residual of [...] Hospital Course: Gregory Hoang was admitted to [facility] on 07/05/2017 via the [...] not take or discontinue any prescription or fuzo-lfo-xtcwcub medications without asking your doctor or pharmacist [...] day to have your insulin doses adjusted. [facility] Endocrine clinic office Discharge Instructions: Call your doctor if: You have a fever of greater than 101 degrees, shaking chills, if you develop redness or drainage from your incision sites, or if you have questions. Please call your surgeon's office if you have any discharge or drainage from your chest incision. Your surgeon, Dr. Yuan Webber and/or the Cardiac Surgery Physician Behavioral Health Rn Team may be reached at . [...] Dr. Yuan Webber. You may use a [place] Track or treadmill but avoid any pulling [...] friends, go to a movie, go to pentecostal, etc. Heavy activities: No hunting, skiing, jogging, snow shoveling, snowmobiling, lawn mowing, swimming, golf or tennis until after your return appointment with the surgeon. Do not ride motorcycles, Findersfee's tractors or horses. Avoid the use of [...] @ 1:20p Patient to follow-up with Supervisor Sample/heart failure team in one week. Appointment will be made for you. You may call [phone] Patient to follow-up with Cardiac Surgery, Dr. [...] THREE L Lab 3L [facility] [phone] 09/07/2017 4:00 PM Luz Prescott MD Endocrinology at [place] [phone] Future Orders Complete By Expires EKG 12 Lead [EKG1 Custom] 08/14/2017 02/13/2018 Process Instructions: Scheduling Instructions: Questions: Which DH location will this be performed?: [place] Is a rhythm strip needed?: No If EKG Reason is Pre-op Evaluation, indicate diagnosis for surgery.: XR Chest PA & Lateral (Generic) [09715 40342 Custom] 08/14/2017 02/13/2018 Process Instructions: Scheduling Instructions: Questions: Where will study be performed?: [place] Radiology Portable exam?: Reason for exam and clinical history: CABG x 3 Other pertinent information: Stat read required?: Date of injury if applicable: Requested Time: Referral to Cardiac Rehab [ELE000 Custom] As directed Process Instructions: If no progress note charted, please enter Clinical details in comments. Scheduling Instructions: Questions: My question or request is: s/p CABG. Cardiac rehab at [facility] Referral to Home Health - at DISCHARGE [QVQ5120 CPT(R)] As directed Process Instructions: Scheduling Instructions: Comments: DOCUMENTATION FOR VNA SERVICES (INCLUDING THOSE PATIENTS WITH MEDICARE COVERAGE REQUIRING HOME VNA SERVICES AND/OR HOSPICE SERVICES) PATIENT'S LOCATION: Gregory Hoang [address] [place] [address] [place] [phone] (home) Telephone Information: Dicer Machine Operator's Name: self In discussion with the attending physician, it is certified that this patient is under their care and that they, or a Nurse Practitioner, or Physician Behavioral Health Rn who is working directly with them, [...] ([facility] [place] [facility] [place] PHONE: [phone] FAX: [phone] RN orders: Cardiopulmonary assessment, incisional assessment, assess vital signs, assessment of rehab progress, medication management and effectiveness, home safety evaluation. Please draw INR if indicated and send result to:Dr Vicente [phone] PT ORDERS: Continue rehab for endurance, gait stability and strength with mobility and transfers. Home safety evaluation. Home exercise program if appropriate. Start of Care Date:24-48 hours after discharge SPECIAL INSTRUCTIONS: For any follow up questions, needs, or issues please call the Cardiac Surgery Office at [phone] FOR MEDICARE ONLY: (please delete this section [...] OR AFTER 07/17/2017 Signed: Martha Teague APRN [facility] Section of Cardiac Surgery [facility] [id number] FAX [phone] Date: 07/14/2017 CC: MD Ivania Cr Betsy, PA [address] [place] [phone] documented in this encounter Discharge Instructions Discharge [...] day to have your insulin doses adjusted. [facility] Endocrine clinic office Patient InstructionsStMartha mcdonald APRN [...] not take or discontinue any prescription or zase-hia-bcobpej medications without asking your doctor or pharmacist [...] day to have your insulin doses adjusted. [facility] Endocrine clinic office ? Discharge Instructions: ?? Call your doctor if: You have a fever of greater than 101 degrees, shaking chills, if you develop redness or drainage from your incision sites, or if you have questions. Please call your surgeon's office if you have any discharge or drainage from your chest incision. Your surgeon, Dr. Yuan Webber and/or the Cardiac Surgery Physician Behavioral Health Rn Team may be reached at . [...] Dr. Yuan Webber. You may use a [place] Track or treadmill but avoid any pulling [...] friends, go to a movie, go to pentecostal, etc. ?? Heavy activities: No hunting, skiing, jogging, snow shoveling, snowmobiling, lawn mowing, swimming, golf or tennis until after your return appointment with the surgeon. Do not ride motorcycles, Findersfee's tractors or horses. Avoid the use of [...] 1:20p ?? Patient to follow-up with Supervisor Sample/heart failure team in one week. An appointment has been made for you, you can call [phone] ?? Patient to follow-up with Cardiac Surgery, [...] THREE L Lab 3L [facility] [phone] ?? 09/07/2017 4:00 PM Luz Prescott MD Endocrinology at [place] [phone] Future Orders Complete By Expires ?? EKG 12 Lead [EKG1 Custom] 08/14/2017 02/13/2018 ?? Process Instructions: ? Scheduling Instructions: ? Questions: ? Which location will this be performed?: [place] ?? Is a rhythm strip needed?: No ?? If EKG Reason is Pre-op Evaluation, indicate diagnosis for surgery.: ?? XR Chest PA & Lateral (Generic) [[id number] Custom] 08/14/2017 02/13/2018 ?? Process Instructions: ? Scheduling Instructions: ? Questions: ? Where will study be performed?: [place] Radiology ?? Portable exam?: ?? Reason for exam and clinical history: CABG x 3 ?? Other pertinent information: ?? Stat read required?: ?? Date of injury if applicable: ?? Requested Time: ?? Referral to Cardiac Rehab [NNY042 Custom] As directed ? Process Instructions: ?? [...] 07/14/2017 2:34 PM EST The patient/sales representative facility services has been provided a list of Home Health Agencies/DME vendors which serve their preferred geographic area. A letter describing our affiliations was reviewed with them and theywere educated about their right to choose where referrals are placed. Patient requests referral to [facility]. PHONE: [phone] FAX: [phone] Expected date of discharge: 07/14 Referral routed to the Mixing Picker Tender for matching with agency/vendor and to [...] day to have your insulin doses adjusted. [facility] Endocrine clinic office Kathie Carrera APRN [facility] Endocrinology Diabetes Management Pager [phone] 20 minutes of this 35 minute visit was spent with the patient in counseling on diabetes and treatment plan, reviewing all glucose and insulin data as well as relevant laboratory results with the patient, and coordination of care on the inpatient unit including nursing and primary team. Zulma Power RN - 07/14/2017 10:30 AM EST The patient/sales representative facility services has been provided a list of Home Health Agencies/DME vendors which serve their preferred geographic area. A letter describing our affiliations was reviewed with them and theywere educated about their right to choose where referrals are placed. Patient requests referral to : Yasmani Munguia ([facility] [place] [facility] in [place]) PHONE: [phone] FAX: [phone]. Expected date of discharge: 07/14/17 Referral routed to the Mixing Picker Tender for matching with agency/vendor and to [...] Will continue to follow Katerin Azul APRN [facility] Endocrinology Diabetes Management Pager [phone] 15 minutes of this 25 minute visit [...] infiltration/extravasation Discussed plan of care with MAINTENANCE ENGINEER OIL FIELD and RN. Elevate exrtemity and apply intermittent Warm compresses. Name of MD contacted Dr. Shaw Brown 07/13/2017 @ 0662 Name of RN contacted Ale Rangel RN Name of Pharmacist if consulted NA Name of Plastics MD ( if consulted) NA (Mandatory photo for infiltrations/ extravasations scoring a stage 2 or greater, but recommended forstage 1)( include measuring tape and identifier in the photo) STEEL HEATER CARING FOR THIS PATIENT WILL CONTINUE TO [...] measuring tape and identifier in the photo) STEEL HEATER CARING FOR THIS PATIENT WILL CONTINUE TO [...] regard to both infiltrates addressed by this conventional underwriter.All of MrMadiha Hoang's responses were entirely appropriate. Images of infiltrates attached here. L Martha Teague, RECOVERY MANAGER - 07/13/2017 8:01 AM EST Cardiac Surgery Progress Note: ID: [id number] 72 year old male POD#6 s/p CABGx3 [...] I have met with the patient/sales representative facility services to discuss discharge planning needs. I have provided the [facility], Office of Care Management letter from the Senior Linux Unix Engineer pertaining to rehab referrals. I have also provided a letter describing our affiliations within the [facility] and educated them about their right to choose where referrals are placed. ?? I reviewed the different levels of rehab including SNF, swing, acute and LTAC with the patient/sales representative facility services. ?? The patient/sales representative facility services has been provided a list of facilities within their preferred geographic area. ?? I have requested that the patient/sales representative facility services provide at least three choices for referral. ?? The patient/sales representative facility services have requested referrals to: ?? [facility]. [facility] ?? 2. [facility] ?? 3. More to be entered ?? Expected date of discharge: 07/14 Note routed to Mixing Picker Tender who will communicate referrals to facilities [...] hours. If BG remains greater than 240, qodaki37 units (no more than three times) & call for new basal insulin orders. ??If less than 240 after two hours, give no insulin and resume prior schedule. Will continue to follow Katerin Azul APRN [facility] Endocrinology Diabetes Management Pager [phone] 20 minutes of this 35 minute visit was spent with the patient in counseling on diabetes and treatment plan, reviewing all glucose and insulin data as well as relevant laboratory results with the patient, and coordination of care on the inpatient unit including nursing and primary team. Makayla Stevenson APRN - 07/12/2017 9:52 AM EST Cardiac Surgery Progress Note: ID: [id number] 72 year old male POD#5 s/p CABGx3 [...] hours. If BG remains greater than 240, dlsoqo33 units (no more than three times) & [...] AM EST Cardiac Surgery Progress Note: ID: [id number] 72 year old male POD#4 s/p CABGx3 [...] hours. If BG remains greater than 240, glsxno98 units (no more than three times) & [...] AM EST Cardiac Surgery Progress Note: ID: [id number] 72 year old male POD#3 s/p CABGx3 [...] Gas) No results found for: PHART, PO2ART, BQC9OEP Assessment/Plan: 72 year old male POD#3 s/p [...] Mami Thao - 07/09/2017 6:29 PM EST Branch Mechanic Encounter Note Patient Name: Gregory Hoang : [id number] MR#: [id number] Admit Date: 07/05/2017 4:20 PM Hospital Day 4 days Narrative: Patient was sitting in chair, hugging heart pillow, opened his eyes, nodding to come into room Assessment: Patient was sleepy. Intervention and Outcome: Introduced keno dealer services and patient reached his hand out in appreciation. Follow-up: Branch Mechanic remains available for support. Time in [...] AM EST Cardiac Surgery Progress Note: ID: [id number] 72 year old male POD#2 s/p CABGx3 [...] completed shifts: In: 7977.4 [I.V.:7477.4; Other:500] Out: 7645 [Urine:3000; Other:615] I- 4 L O- 2.7 [...] Attending Surgeon on rounds. Signed: STEPHANIE Iqbal [facility] Section of Cardiac Surgery [...] when IABP d/c'ed. Gretchen [place], PT Pager [phone] Maddison Cee PA - 07/08/2017 11:27 AM EST Cardiac Surgery Progress Note: ID: [id number] 72 year old male POD#1 s/p CABGx3 [...] Attending Surgeon on rounds. Signed: STEPHANIE Iqbal [facility] Section of Cardiac Surgery [...] in place in R femoral. No hematoma. BREAD RACKER- Intact Psych- Anxious Skin- Dry, no peripheral [...] intact. IABP in place in R femoral. BREAD RACKER- Intact Psych- Anxious Skin- Dry, no peripheral [...] note for details. DAPHNE SHAHID MD Pager [phone] Jet Mckenna MD - 07/05/2017 6:48 PM EST Preliminary Cardiac Catheterization Procedure Note: Procedure(s) performed: Left heart cath, IABP insertion Access: Right PHYSICAL METALLURGIST-->8fr IABP A time-out was conducted prior to [...] Shahid MD PCP: Lovely Vicente MD PCP#: [phone] Patient Active Problem List Diagnosis Code ??? [...] with heparin drip and transferred to [facility]. While there, continued sob, question of chest pain. Stat TTE showing WMA diffusely and EF around 20%. No significant valvular disease. Taken to the cathode builder urgently for ongoing STEMI. [facility] [...] Medicine, PGY-2 Cardiology S1, Team Pager # [phone] CARDIOLOGY ATTENDING NOTE Patient: Gregory Hoang Date [...] amenable for PCI. DAPHNE SHAHID MD Pager [phone] documented in this encounter Miscellaneous Notes Consult Note - Daphne Shahid MD - 07/14/2017 11:46 AM EST Heart Failure Service Inpatient Consult Note Gregory Hoang Date of : 1945 Age: 72 y.o. Today's date: 07/14/17 PCP: Lovely Vicente MD LOGGING ENGINEER: None Place of Service: C451-A Reason for [...] [facility] ENDOSCOPY ??? PRO ENDOSCOPY W/VIDEO-ASST [...] following studies: EKG 07/14/17: NSR 75 bpm, HAND ASSEMBLER anterior infarct, LAD CXR 07/11/17: FINDINGS: Sternotomy wires. The patient has been extubated, left chest tube removed, and [place]-Suzi catheter removed since the 07/07/2017 study. [...] was discussed with Zehra. Jaden Kelley MD Cable Tender Pager [phone] CARDIOLOGY ATTENDING NOTE Patient: Gregory Hoang Date [...] heart failure clinic. DAPHNE SHAHID MD Pager [phone] Plan of Care - Alden Chavarria, IT SERVICE MANAGER - 07/14/2017 11:35 AM EST Problem: [...] Discharge Disposition: home with assist Alden Chavarria, IT SERVICE MANAGER Pager: [phone] Inpatient Physical Therapy Problem: Acute Rehab Services [...] sit/sit to supine -- Bed Mobility Goal, [place] Level supervision required -- Bed Mobility Goal, [...] - 3 days -- Gait Training Goal, [place] Level supervision required -- Gait Training Goal, [...] days -- Transfer Training Goal, Activity Type oib-ov-ogrsk/rioyx-yk-wif;bcl-jq-gfcqt/adkrt-be-yzu;toilet -- Transfer Train Goal, [place] Level supervision required -- Transfer Training Goal, [...] keeping present for 2 days per family. General Practitioner noted of frustrations, house keeping sent to room. Patient offered showered twice, refused. at bedside, frustrated that shower not complete, informed that patient had refused several times. requesting to see WIRE FRAME DIPPER, paged sent to Martha, will come to bedside (middle of consult). not willing to wait, Martha notified that family had gone home. Encouraged to come for morning rounds a t 8am. Diabetes team at bedside - insulin adjustments made. Call cabello in reach. Continue to monitor. PLAN MOVING FORWARD: Ambulate, dressing changes BID, Please change drsg at 4am per Martha WIRE FRAME DIPPER request. INDIVIDUALIZED FALL PREVENTION INTERVENTIONS: Patient-specific fall [...] levels on the lower side, 60ml of [place] juice given after a FS of 80. [...] monitoring required during toileting and ADLs]: RN MAINTENANCE ENGINEER OIL FIELD Surveillance [continuous indirect monitoring]: Barrett Monitor CPG [...] Anticipated Discharge Disposition: home with assist Pager: [phone] CLARISSA SEGAL, PT 07/12/2017 Physical Therapy Rehabilitation [...] to sit/sit to supine Bed Mobility Goal, [place] Level supervision required Bed Mobility Goal, Additional Goal adheres to psternal precautions for transfer Goal: Gait Training Goal Stand Alone Therapy Goal Outcome: Ongoing (Interventions Implemented as Appropriate) 07/12/17 1225 Gait Training Goal Gait Training Goal, Date Established 07/12/17 Gait Training Goal, Time to Achieve 2 - 3 days Gait Training Goal, [place] Level supervision required Gait Training Goal, Assist [...] 3 days Transfer Training Goal, Activity Type tld-ex-tavgu/cifzf-js-tyd;ksx-bn-brhoa/utlgj-nx-flr;toilet Transfer Train Goal, [place] Level supervision required Transfer Training Goal, Additional Goal adheres to sternal precautions during transfer Consult Note - Octavia Vaughn RN - 07/12/2017 10:50 AM EST [facility] CARDIAC REHABILITATION Gregory Hoang was seen today [...] IV site, amio to other piv and MICROBIOLOGY LAB TECHNICIAN at bedside to help assess, IV removed. [...] staff, he stood and marched in place. [place] weak, wanting to sit back down. Remained [...] Health/Prescription Coverage: Primary Insurance: MEDICARE Secondary Insurance: [employer] Prescription Coverage: yes Preferred Pharmacy: [facility] [place] Other: none Primary Care Provider: Lovely Vicente MD [phone] Patient/Caregiver Goals of Treatment:live and get my breath back Potential Needs for Transition of Care: Rehab/SNF: [facility] Home Health: DME: TBD Dialysis: na Community Resources: available Transportation: yes Other: none Anticipated Barriers to Discharge/Special Considerations: none Plan: Likely SNF Rehab before home A member of the Care Management team will continue to monitor progress, follow for continuity of care and assist with transition of care planning. ERLIN Weiss Pager: [phone] Consult Note - Katerin Azul RN - [...] potential to d/c gtt and start CF. flat bed knitter diabetes care: Medications - Outpatient treatment regimen recommendations pending based on the hospital course. Monitoring - continue BG tid ac & hs Diet - low fat/low carb diet Exercise - weight-bearing exercise 30 min/day, as tolerated Thank you for allowing us to provide care for your patient W/E coverage, Dr. Jeane Tatum, pager [phone] Katerin Azul APRN Endocrinology Diabetes Management Pager [phone] Plan of Care - Stephanie Godoy RN [...] Webber MD - 07/07/2017 6:27 PM EST [facility] Operative Note Patient Name: Gregory Hoang : [id number] MR#: [id number] Case Date: 07/07/2017 Surgeon: Surgeon(s) and Role: * Yuan Webber MD - Primary * Michael Drake PA - Physician Behavioral Health Rn * Linda Flores PA - Physician Behavioral Health Rn Preoperative diagnosis: 3VD Postoperative diagnosis: CAD, [...] Operative Note Patient Name: Gregory Hoang : [id number] MR#: [id number] Case Date: 07/07/2017 Surgeon: Surgeon(s) and Role: * Yuan Webber MD - Primary * Michael Drake PA - Physician Behavioral Health Rn * Linda Flores PA - Physician Behavioral Health Rn Preoperative diagnosis: 3VD Postoperative diagnosis: CAD, [...] major CV events such as , stroke, [place], repeat revascularization compared to PCI). In this [...] code status: Full Code Katty Hahn, MS3 [facility] Cardiology S1 (Pager [phone]) Plan of Care - Emelia Ibarra RN [...] hospital and ruled infor non-ST segment elevation MO. This almost certainly represents the residual of [...] [facility] MAIN OR Social History: Social [...] with other involved physicians Yuan Webber MD [phone] Med Student Progress Note - Katty Hahn [...] major CV events such as , stroke, MO, repeat revascularization compared to PCI). In this [...] insulin drip - hold metformin - f/u [facility] ?? #Home Meds - continue levothyroxine 175mcg - CPAP at night ?? # Routine - DVT PPx: heparin drip - Diet: Healthy heart diet, NPO at midnight for CABG tomorrow - Code Status: FULL - Dispo: CVCC Katty Hahn, M3 [facility] Cardiology S1 (Pager [phone]) Plan of Care - Stephanie Godoy RN - 07/06/2017 5:00 AM EST Problem: Patient Care Overview Goal: Plan of Care Review 07/06/17 3486 Coping/Psychosocial Plan Of Care Reviewed With patient;family [...] Outcome: Ongoing (Interventions Implemented as Appropriate) 07/06/17 8726 Cardiac: ACS (Acute Coronary Syndrome) Problems Assessed [...] [facility] [address] [place], [place] [address] (Wo rk) 05/28/2022 Laboratory Appointment Lab 05/28/2022 Office Visit Cardiology Zulma Dolan MD [facility] [place] [address] Liz Poole PA [facility] [place] [address] 06/10/2022 Office Visit Dermatology Laura Scherer MD [facility] [address] [place], [place] [address] (Wo rk) Scheduled Orders Name [...] procedure are i n the results section. ENVIRONMENTAL SCIENTIST SCAN 07/15/2017 12:00 Res ults for this [...] Routine 07/08/2017 4:00 Results f or this ([facility]) AM EST [...] Routine 07/06/2017 7:40 Results f or this ([facility]) PM EST procedure are i n the [...] Timed 07/06/2017 2:10 Results f or this ([facility]) PM EST procedure are i n the [...] section. TYPE AND SCREEN Routine 07/06/2017 12:00 ([facility]) PM EST APTT STAT 07/06/2017 11:24 Results [...] Routine 07/06/2017 8:10 Results f or this ([facility]) AM EST procedure are i n the [...] Routine 07/06/2017 2:20 Results f or this ([facility]) AM EST procedure are i n the [...] Routine 07/05/2017 8:20 Results f or this ([facility]) PM EST [...] Timed 07/05/2017 4:55 Results f or this ([facility]) PM EST [...] No pleural effusion or pneumothorax. Cardiomediastinal silhouette, morsi, and pulmonary vasculat ure are unchanged. Unchanged sternotomy wires and mid sternal fracture. Procedure Note Michelle Garnett MD - 2017 EXAMINATION: XR CHEST PA AND LATERAL ([employer]) CLINICAL HISTORY: CABG x 3 TECHNIQUE: PA [...] Teague APRN IMG DX ORDERABLES SCAN DOC: ENVIRONMENTAL SCIENTIST (07/15/2017 12:00 AM EST) Narrative 07/15/2017 12:00 [...] 65 - 199 [place] mg/dL [facility] Comment: Supplemental ranges: <140 mg/dL before meals <180 mg/dL all other times of the day Specimen Anatomical Collection Method Collection Time Receive d Time (Source) Location / / Volume Laterality Blood specimen 07/14/2017 11:56 7 (specimen) AM EST 11:56 AM EST Yuan Webber MD POINT OF CARE TEST ORDERABLE S Performing Organization Address City/State/ZIP Code Phon e Number [place] [id number] [facility] [address] POCT Glucose (07/14/2017 7:52 AM EST) athologist Signature POC Glucose 126 65 - 199 [facility] mg/dL [facility] Comment: Supplemental [...] Address City/State/ZIP Code Phon e Number [address] (ABNORMAL) Prothrombin Time (07/14/2017 [...] Address City/State/ZIP Code Phon e Number [address] Potassium (07/14/2017 4:46 AM EST) athologist Signature Potassium 4.3 3.5 - 5.0 [facility] mmol/L [facility] Comment: Please [...] Address City/State/ZIP Code Phon e Number [address] POCT Glucose (07/14/2017 4:34 AM EST) athologist Signature POC Glucose 115 65 - 199 [facility] mg/dL [facility] Comment: Supplemental [...] [facility]/ZIP Code Phon e Number [address] POCT Glucose (07/13/2017 11:33 PM EST) athologist Signature POC Glucose 132 65 - 199 [place] mg/dL [facility] Comment: Supplemental [...] [facility]/ZIP Code Phon e Number [address] POCT Glucose (07/13/2017 9:25 PM EST) athologist Signature POC Glucose 121 65 - 199 [place] mg/dL [facility] Comment: Supplemental [...] Address City/State/ZIP Code Phon e Number [address] POCT Glucose (07/13/2017 4:55 PM EST) P athologist Signature POC Glucose 79 65 - 199 [facility] mg/dL [facility] Comment: Supplemental [...] Address City/State/ZIP Code Phon e Number [address] POCT Glucose (07/13/2017 11:16 AM EST) P athologist Signature POC Glucose 163 65 - 199 [place] mg/dL [facility] Comment: Supplemental [...] Address City/State/ZIP Code Phon e Number [address] POCT Glucose (07/13/2017 8:07 AM EST) P athologist Signature POC Glucose 96 65 - 199 [place] mg/dL [facility] Comment: Supplemental [...] [facility]/[place] [address] (ABNORMAL) Prothrombin Time (07/13/2017 [...] Wilson APRN HEMATOLOGY ORDERABLES Performing Organization Address City/[facility]/[place] [address] (ABNORMAL) Basic Metabolic Panel (non-fasting) (07/13/2017 4:26 AM EST) P athologist Signature Glucose Lvl 95 65 - 199 [facility] mg/dL [facility] Comment: Diabetes: [...] or in patients with acute kidney failure. [email or web address] [email or web address] Specimen Anatomical Collection Method Collection Time Receive d Time (Source) Location / / Volume Laterality Blood specimen 07/13/2017 4:26 AM 017 4:46 (specimen) EST AM EST Resulting Agency Comment Spec In Lab Makayla Wilson APRN CHEMISTRY ORDERABLES Performing Organization Address City/[facility]/ZIP Code Phon e Number [address] POCT Glucose (07/13/2017 3:52 AM EST) P athologist Signature POC Glucose 93 65 - 199 [facility] mg/dL [facility] Comment: Supplemental [...] Address City/State/[place] [address] POCT Glucose (07/13/2017 12:21 AM EST) athologist Signature POC Glucose 80 65 - 199 [place] mg/dL [facility] Comment: Supplemental [...] Address City/State/ZIP Code Phon e Number [address] POCT Glucose (07/12/2017 8:22 PM EST) athologist Signature POC Glucose 119 65 - 199 [facility] mg/dL [facility] Comment: Supplemental [...] Address City/State/ZIP Code Phon e Number [address] POCT Glucose (07/12/2017 4:02 PM EST) athologist Signature POC Glucose 114 65 - 199 [facility] mg/dL [facility] Comment: Supplemental [...] Address City/State/[place] [address] POCT Glucose (07/12/2017 11:28 AM EST) athologist Signature POC Glucose 164 65 - 199 [facility] Comment: Supplemental [...] Address City/State/ZIP Code Phon e Number [address] POCT Glucose (07/12/2017 7:34 AM EST) athologist Signature POC Glucose 109 65 - 199 [facility] Comment: Supplemental [...] Address City/State/[place] [address] (ABNORMAL) Basic Metabolic Panel (non-fasting) (07/12/2017 4:11 AM EST) athologist Signature Glucose Lvl 92 65 - 199 [facility] Comment: Diabetes: [...] or in patients with acute kidney failure. [email or web address] [email or web address] Specimen Anatomical Collection Method Collection Time Receive d Time (Source) Location / / Volume Laterality Blood specimen 07/12/2017 4:11 AM 017 8:57 (specimen) EST AM EST Resulting Agency Comment Spec In Lab Makayla Katie QUINONES CHEMISTRY ORDERABLES Performing Organization Address City/State/[place] [address] (ABNORMAL) Prothrombin Time (07/12/2017 [...] Wilson APRN HEMATOLOGY ORDERABLES Performing Organization Address City/[facility]/[place] [address] Potassium (07/12/2017 4:11 AM EST) athologist Signature Potassium 3.8 3.5 - 5.0 [facility] mmol/L [facility] Comment: Please [...] Wilson APRN CHEMISTRY ORDERABLES Performing Organization Address City/[facility]/[place] [address] POCT Glucose (07/12/2017 4:10 AM EST) athologist Signature POC Glucose 90 65 - 199 [facility] Comment: [...] [facility]/[place] [address] POCT Glucose (07/11/2017 11:57 PM EST) athologist Signature POC Glucose 98 65 - 199 [facility]/dL [facility] Comment: [...] Address City/State/[place] [address] POCT Glucose (07/11/2017 8:32 PM EST) P athologist Signature POC Glucose 146 65 - 199 [facility] mg/dL [facility] Comment: Supplemental [...] Address City/State/[place] [address] XR Chest PA & [...] e xtubated, left chest tube removed, and [place]-Suzi catheter removed since the study. Atelectasis [...] e xtubated, left chest tube removed, and [place]uzi catheter removed since the study. Atelectasis [...] POC Glucose 223 (H) 65 - 199 [facility] Comment: Supplemental [...] [facility]/[place] [address] POCT Glucose (07/11/2017 11:55 AM EST) athologist Signature POC Glucose 176 65 - 199 [place] mg/dL [facility] Comment: Supplemental [...] Address City/State/[place] [address] POCT Glucose (07/11/2017 7:53 AM EST) athologist Signature POC Glucose 189 65 - 199 [facility]/dL [facility] Comment: Supplemental ranges: <140 mg/dL before meals <180 mg/dL all other times of the day Specimen Anatomical Collection Method Collection Time Receive d Time (Source) Location / / Volume Laterality Blood specimen 07/11/2017 7:53 AM 017 7:53 (specimen) EST AM EST Yuan Webber MD POINT OF CARE TEST ORDERABLE S Performing Organization Address City/[facility]/ZIP [facility] Phon e Number [address] POCT Glucose (07/11/2017 4:22 AM EST) athologist Signature POC Glucose 151 65 - 199 [facility]dL [facility] Comment: Supplemental ranges: <140 mg/dL before meals <180 mg/dL all other times of the day Specimen Anatomical Collection Method Collection Time Receive d Time (Source) Location / / Volume Laterality Blood specimen 07/11/2017 4:22 AM 017 4:22 (specimen) EST AM EST Yuan Webber MD POINT OF CARE TEST ORDERABLE S Performing Organization Address City/[facility] Phon e Number [address] Potassium (07/11/2017 2:20 AM EST) athologist Signature Potassium 4.5 3.5 - 5.0 [facility] mmol/L [facility] Comment: Please [...] Address City/State/ZIP Code Phon e Number [address] POCT Glucose (07/11/2017 12:17 AM EST) athologist Signature POC Glucose 162 65 - 199 [place] mg/dL [facility] Comment: Supplemental [...] [facility]/ZIP Code Phon e Number [address] POCT Glucose (07/10/2017 8:47 PM EST) athologist Signature POC Glucose 191 65 - 199 [place] mg/dL [facility] Comment: Supplemental [...] Hospital/ZIP Code Ph[place] [address] POCT Glucose (07/10/2017 4:06 PM EST) athologist Signature POC Glucose 131 65 - 199 [place] mg/dL [facility] Comment: Supplemental [...] Address City/State/[place] [address] POCT Glucose (07/10/2017 3:08 PM EST) athologist Signature POC Glucose 151 65 - 199 [place] mg/dL [facility] Comment: Supplemental [...] Address City/State/ZIP Code Phon e Number [address] POCT Glucose (07/10/2017 2:25 PM EST) athologist Signature POC Glucose 146 65 - 199 [facility] mg/dL [facility] Comment: Supplemental [...] Address City/State/ZIP Code Phon e Number [address] POCT Glucose (07/10/2017 1:23 PM EST) athologist Signature POC Glucose 166 65 - 199 [place] mg/dL [facility] Comment: Supplemental [...] Address City/State/[place] [address] POCT Glucose (07/10/2017 11:52 AM EST) P athologist Signature POC Glucose 157 65 - 199 [place] mg/dL [facility] Comment: Supplemental [...] Address City/State/ZIP Code Phon e Number [address] POCT Glucose (07/10/2017 11:01 AM EST) athologist Signature POC Glucose 158 65 - 199 [facility] mg/dL [facility] Comment: Supplemental [...] Address City/State/ZIP Code Phon e Number [address] POCT Glucose (07/10/2017 9:54 AM EST) athologist Signature POC Glucose 160 65 - 199 [place] mg/dL [facility] Comment: Supplemental [...] Address City/State/[place] [address] POCT Glucose (07/10/2017 8:58 AM EST) athologist Signature POC Glucose 183 65 - 199 [place] mg/dL [facility] Comment: Supplemental [...] Address City/State/[place] [address] POCT Glucose (07/10/2017 8:01 AM EST) athologist Signature POC Glucose 173 65 - 199 [place] mg/dL [facility] Comment: Supplemental [...] Address City/State/ZIP Code Phon e Number [address] POCT Glucose (07/10/2017 7:05 AM EST) athologist Signature POC Glucose 166 65 - 199 [place] mg/dL [facility] Comment: Supplemental [...] Address City/State/ZIP Code Phon e Number [address] POCT Glucose (07/10/2017 6:00 AM EST) P athologist Signature POC Glucose 162 65 - 199 [facility] mg/dL [facility] Comment: Supplemental [...] City/State/[place] [address] (ABNORMAL) Differential, Automated (07/10/2017 4:28 AM EST) Patholo gist Method Time Signature Neutrophils % 87.9 % [facility] Neutr Abs (ANC) 10.70 (H) 1.70 - [facility] 6.10 [facility] x10(3)/[facility] L LABORATORY Lymphocytes % 3.9 % [facility] Lymphocytes Abs 0.5 (L) 0.9 - 3.2 [facility] x10(3)/[facility] LABORATORY Monocytes % 7.0 % [facility] Monocyte Abs 0.8 0.3 - 0.9 [facility] x10(3)/[facility] LABORATORY Eosinophils % 0.3 % [facility] Eosinophils Abs 0.0 0.0 - 0.4 [facility] x10(3)/[facility] LABORATORY Basophils % 0.2 % [facility] Basophils Abs 0.0 0.0 - 0.1 [facility] x10(3)/[facility] LABORATORY Immature Gran % 0.70 % [...] City/State/[place] [address] (ABNORMAL) Hemogram (07/10/2017 4:28 AM EST) Analysis Performed At Patho logist Time Signature WBC 12.2 (H) 4.0 - 9.5 [facility] x10(3)/[facility] LABORATORY RBC 3.31 (L) 4.58 - [facility] 5.54 [facility] x10(6)/[facility] LABORATORY Hemoglobin 9.8 (L) 13.7 - [facility] 16.5 gm/dL [facility] Hematocrit 30.0 (L) 40.5 - [facility] 48.5 % [facility] MCV 90.6 82.9 - [facility] 93.1 [facility] LABORATORY MCH 29.6 27.5 - [facility] 32.1 pg [facility] MCHC 32.7 32.0 - [facility] 35.7 gm/dL [facility] Platelets 135 (L) 145 - 357 [facility] x10(3)/[facility] LABORATORY RDWSD 50.8 (H) 36.0 - [facility] 45.0 [facility] LABORATORY RDWCV 15.4 (H) 11.4 - [facility] 13.8 % [facility] MPV 10.0 7.6 - 12.9 [facility] LABORATORY nRBC % Auto 0.0 % [facility] nRBC Abs Auto 0.000 0.000 - [facility] 0.000 [facility] x10(3)/[facility] LABORATORY Specimen Anatomical Collection Method Collection Time Receive d Time (Source) Location / / Volume Laterality Blood specimen 07/10/2017 4:28 AM 017 4:36 (specimen) EST AM EST Resulting Agency Comment Spec In Lab Yuan Webber MD HEMATOLOGY ORDERABLES Performing Organization Address City/[facility]/[place] [address] (ABNORMAL) Basic Metabolic Panel (non-fasting) (07/10/2017 4:28 AM EST) P athologist Signature Glucose Lvl 178 65 - 199 [facility] mg/dL [facility] Comment: Diabetes: [...] or in patients with acute kidney failure. [email or web address] [email or web address] Specimen Anatomical Collection Method Collection Time Receive d Time (Source) Location / / Volume Laterality Blood specimen 07/10/2017 4:28 AM 017 4:36 (specimen) EST AM EST Resulting Agency Comment Spec In Lab Yuan Webbre MD CHEMISTRY ORDERABLES Performing Organization Address City/[facility]/[place] [address] POCT Glucose (07/10/2017 4:26 AM EST) P athologist Signature POC Glucose 176 65 - 199 [facility] mg/dL [facility] Comment: Supplemental [...] Address City/State/[place] [address] (ABNORMAL) POCT Glucose (07/10/2017 3:06 AM EST) athologist Signature POC Glucose 204 (H) 65 - 199 [facility] mg/dL [facility] Comment: Supplemental [...] Address City/State/[place] [address] (ABNORMAL) POCT Glucose (07/10/2017 2:10 AM EST) athologist Signature POC Glucose 203 (H) 65 - 199 [facility] mg/dL [facility] Comment: Supplemental [...] Address City/State/ZIP Code Phon e Number [address] POCT Glucose (07/10/2017 1:09 AM EST) P athologist Signature POC Glucose 196 65 - 199 [place] mg/dL [facility] Comment: Supplemental [...] Address City/State/ZIP Code Phon e Number [address] POCT Glucose (07/10/2017 12:10 AM EST) athologist Signature POC Glucose 173 65 - 199 [place] mg/dL [facility] Comment: Supplemental [...] Address City/State/ZIP Code Phon e Number [address] POCT Glucose (07/09/2017 11:01 PM EST) athologist Signature POC Glucose 140 65 - 199 [place] mg/dL [facility] Comment: Supplemental [...] Address City/State/[place] [address] POCT Glucose (07/09/2017 10:05 PM EST) athologist Signature POC Glucose 144 65 - 199 [facility] mg/dL [facility] Comment: Supplemental [...] Address City/State/ZIP Code Phon e Number [address] POCT Glucose (07/09/2017 9:31 PM EST) athologist Signature POC Glucose 121 65 - 199 [place] mg/dL [facility] Comment: Supplemental [...] Address City/State/ZIP Code Phon e Number [address] POCT Glucose (07/09/2017 9:03 PM EST) athologist Signature POC Glucose 98 65 - 199 [place] mg/dL [facility] Comment: Supplemental [...] Address City/State/ZIP Code Phon e Number [address] POCT Glucose (07/09/2017 8:09 PM EST) athologist Signature POC Glucose 117 65 - 199 [place] mg/dL [facility] Comment: Supplemental [...] Address City/State/[place] [address] POCT Glucose (07/09/2017 5:40 PM EST) athologist Signature POC Glucose 155 65 - 199 [facility] [place] mg/dL [facility] Comment: Supplemental [...] Address City/State/[place] [address] POCT Glucose (07/09/2017 4:24 PM EST) athologist Signature POC Glucose 164 65 - 199 [place] mg/dL [facility] Comment: Supplemental [...] Address City/State/ZIP Code Phon e Number [address] POCT Glucose (07/09/2017 3:19 PM EST) athologist Signature POC Glucose 166 65 - 199 [place] mg/dL [facility] Comment: Supplemental [...] Address City/State/[place] [address] POCT Glucose (07/09/2017 2:26 PM EST) athologist Signature POC Glucose 179 65 - 199 [facility] mg/dL [facility] Comment: Supplemental [...] Address City/State/[place] [address] (ABNORMAL) POCT Glucose (07/09/2017 1:29 PM EST) athologist Signature POC Glucose 210 (H) 65 - 199 [place] mg/dL [facility] Comment: Supplemental [...] Address City/State/[place] [address] POCT Glucose (07/09/2017 12:20 PM EST) athologist Signature POC Glucose 172 65 - 199 [place] mg/dL [facility] Comment: Supplemental [...] Address City/State/ZIP Code Phon e Number [address] POCT Glucose (07/09/2017 11:24 AM EST) athologist Signature POC Glucose 156 65 - 199 [facility] mg/dL [facility] Comment: Supplemental [...] Address City/State/ZIP Code Phon e Number [address] POCT Glucose (07/09/2017 11:11 AM EST) athologist Signature POC Glucose 172 65 - 199 [place] mg/dL [facility] Comment: Supplemental [...] Address City/State/ZIP Code Phon e Number [address] POCT Glucose (07/09/2017 10:08 AM EST) athologist Signature POC Glucose 176 65 - 199 [place] mg/dL [facility] Comment: Supplemental [...] Address City/State/[place] [address] POCT Glucose (07/09/2017 8:02 AM EST) P athologist Signature POC Glucose 178 65 - 199 [facility] mg/dL [facility] Comment: Supplemental [...] Address City/State/[place] [address] (ABNORMAL) BLOOD GAS 2 ARTERIAL (07/09/2017 5:37 AM EST) Analysis Performed At Patho logist Time Signature pH Art 7.36 7.35 - [facility] 7.45 [facility] pCO2 Art 38 35 - 45 [facility] mmHg [facility] pO2 Art 79 (L) 85 - 104 [facility] mmHg [facility] HCO3 Art 20.9 20.0 - [facility] 26.0 [facility] mmol/L [facility] BE Art -4.6 (L) -3.0 - 3.0 [facility] mmol/L [facility] Hgb Blood Gas 10.5 (L) 13.7 - [facility] 16.5 gm/dL [facility] O2HB Art 93.8 (L) 94.0 - [facility] 97.0 % [facility] COHB Art 0.3 % [facility] [...] City/State/[place] [address] POCT Glucose (07/09/2017 3:27 AM EST) P athologist Signature POC Glucose 192 65 - 199 [facility] mg/dL [facility] Comment: Supplemental [...] City/State/[place] [address] (ABNORMAL) Basic Metabolic Panel (non-fasting) (07/09/2017 2:30 AM EST) P athologist Signature Glucose Lvl 179 65 - 199 [facility] mg/dL [facility] Comment: Diabetes: [...] or in patients with acute kidney failure. [email or web address] [email or web address] Specimen Anatomical Collection Method Collection Time Receive d Time (Source) Location / / Volume Laterality Blood specimen Venous Draw / 07/09/2017 2:30 AM 2016 2:42 (specimen) Unknown EST AM EST Resulting Agency Comment Spec In Lab Yuan Webber MD CHEMISTRY ORDERABLES Performing Organization Address City/State/[place] [address] (ABNORMAL) Potassium (07/09/2017 2:30 AM EST) P athologist Signature Potassium 5.1 (H) 3.5 - 5.0 [facility] mmol/L [facility] Comment: Please [...] Webber MD CHEMISTRY ORDERABLES Performing Organization Address City/[facility]/ZIP Code Phon e Number [place] [address] (ABNORMAL) Hemogram (07/09/2017 2:30 AM EST) Analysis Performed At Patho logist Time Signature WBC 12.5 (H) 4.0 - 9.5 [place] RY[place] x10(3)/[facility] LABORATORY RBC 3.38 (L) 4.58 - [place] RYAN 5.54 [facility] x10(6)/[facility] LABORATORY Hemoglobin 10.1 (L) 13.7 - [place] RYAN 16.5 gm/dL [facility] LABORATORY Hematocrit 30.3 (L) 40.5 - [place] RYAN 48.5 % [facility] LABORATORY MCV 89.6 82.9 - [place] R[place] 93.1 [facility] LABORATORY MCH 29.9 27.5 - [place] RYAN 32.1 pg [facility] LABORATORY MCHC 33.3 32.0 - [place] R[place] 35.7 gm/dL [facility] LABORATORY Platelets 127 (L) 145 - 357 [place] x10(3)/[facility] LABORATORY RDWSD 49.3 (H) 36.0 - [place] R[place] 45.0 [facility] LABORATORY RDWCV 15.2 (H) 11.4 - [place] R[place] 13.8 % [facility] LABORATORY MPV 9.9 7.6 - 12.9 [facility] LABORATORY nRBC % Auto 0.0 % [facility] LABORATORY nRBC Abs Auto 0.000 0.000 - BARBARA DAVIS 0.000 [facility] x10(3)/[facility] LABORATORY Specimen Anatomical Collection Method Collection Time Receive d Time (Source) Location / / Volume Laterality Blood specimen 07/09/2017 2:30 AM 017 2:41 (specimen) EST AM EST Resulting Agency Comment Spec In Lab Yuan Webber MD HEMATOLOGY ORDERABLES Performing Organization Address City/State/ZIP Code Phon e Number [address] POCT Glucose (07/09/2017 2:10 AM EST) athologist Signature POC Glucose 169 65 - 199 [facility]OR[facility]ORY Comment: [...] Address City/State/ZIP Code Phon e Number [address] POCT Glucose (07/09/2017 1:01 AM EST) athologist Signature POC Glucose 173 65 - 199 [facility]ORATORY Comment: Supplemental [...] Address City/State/ZIP Code Phon e Number [address] Blood culture (07/09/2017 12:40 AM EST) [facility] [employer] Method Time Signature Blood Culture No growth BARBARA DAVIS at 5 days. [facility] LABORATORY Specimen Anatomical Collection Method Collection Time Receive d Time (Source) Location / / Volume Laterality Blood specimen STRUCTURE OF RIGHT 07/09/2017 12:40 3:58 (specimen) UPPER LIMB / AM EST AM EST Unknown Resulting Agency Comment Spec In Lab Yuan Webber MD MICROBIOLOGY - BLOOD ORDERAB LES Performing Organization Address City/[facility]/ZIP Code Phon e Number [address] Blood culture (07/09/2017 12:30 AM EST) [facility] [employer] Method Time Signature Blood Culture No growth BARBARA DAVIS at 5 days. [facility] LABORATORY Specimen Anatomical Collection Method Collection Time Receive d Time (Source) Location / / Volume Laterality Blood specimen STRUCTURE OF LEFT 07/09/2017 12:30 06/25 3:59 (specimen) UPPER LIMB / AM EST AM EST Unknown Resulting Agency Comment Spec In Lab Yuan Webber MD MICROBIOLOGY - BLOOD ORDERAB LES Performing Organization Address City/[facility]/[place] [address] (ABNORMAL) Urinalysis Microscopic Exam (07/09/2017 12:05 AM EST) Analysis Performed At Patho logist Time Signature RBC UA 32 (H) 0 - 3 /HPF [facility] LABORATORY WBC UA 5 (H) 0 - 3 /HPF [facility] LABORATORY Squam Epith UA <1 <=4 /HPF [facility] LABORATORY Hyaline Cast 17 (H) 0 - 2 /LPF [facility] LABORATORY Gran Cast UA 1 (H) <=0 /LPF [facility] LABORATORY Uric Ac Bianca Rare (A) None /HPF [facility] LABORATORY Specimen (Source) Anatomical Collection Method Collection Time Re ceived Time Location / / Volume Laterality Urine specimen 07/09/2017 12:05 7 obtained via AM EST 12:39 AM EST indwelling urinary catheter (specimen) Resulting Agency Comment Spec In Lab Yuan Webber MD URINE ORDERABLES Performing Organization Address City/State/ZIP Code Phon e Number [address] (ABNORMAL) Urinalysis with reflex Culture (07/09/2017 12:05 AM EST) Patholo gist Method Time Signature Glucose UA Negative Negative [facility] Protein UA 30 (A) Negative [facility]dL [facility] LABORATORY Bilirubin UA Negative Negative [facility] mg/dL [facility] LABORATORY Comment: Clinical correlation required [...] [facility] Leukocytes UA Negative Negative [facility] LABORATORY Appearance UA Hazy (A) Clear [facility] LABORATORY Spec [place] UA 1.025 1.002 - 1.030 [facility] LABORATORY Color UA Yellow Yellow [facility] LABORATORY Culture Reflexed No [facility] LABORATORY Specimen (Source) Anatomical Collection Method Collection Time Re ceived Time Location / / Volume Laterality Urine specimen 07/09/2017 12:05 7 obtained via AM EST 12:39 AM EST indwelling urinary catheter (specimen) Resulting Agency Comment Spec In Lab Yuan Webber MD URINE ORDERABLES Performing Organization Address City/State/ZIP Code Phon e Number [place] [id number] [facility] [address] POCT Glucose (07/08/2017 11:01 PM EST) P athologist Signature POC Glucose 191 65 - 199 [facility] mg/dL [facility] LABORATORY Comment: Supplemental [...] Address City/State/[place] [address] POCT Glucose (07/08/2017 10:04 PM EST) P athologist Signature POC Glucose 198 65 - 199 [facility]dL [facility] LABORATORY Comment: Supplemental [...] Address City/State/[place] [address] Prepare Albumin 5% in [...] Address City/State/ZIP Code Phon e Number [address] POCT Glucose (07/08/2017 8:28 PM EST) P athologist Signature POC Glucose 195 65 - 199 [facility] mg/dL [facility] LABORATORY Comment: Supplemental [...] [facility]/[place] [address] (ABNORMAL) POCT Glucose (07/08/2017 7:13 PM EST) P athologist Signature POC Glucose 220 (H) 65 - 199 [facility] mg/dL [facility] LABORATORY Comment: Supplemental [...] [facility]/[place] [address] POCT Glucose (07/08/2017 5:04 PM EST) P athologist Signature POC Glucose 147 65 - 199 [facility]ORY Comment: [...] Address City/State/[place] [address] (ABNORMAL) BLOOD GAS 2 ARTERIAL (07/08/2017 4:13 PM EST) Analysis Performed At Patho logist Time Signature pH Art 7.38 7.35 - [facility] 7.45 [facility] LABORATORY pCO2 Art 36 35 - 45 [facility] LABORATORY pO2 Art 91 85 - 104 [facility] LABORATORY HCO3 Art 20.9 20.0 - [facility] 26.0 [facility] mmol/L [facility] LABORATORY BE Art -4.2 (L) -3.0 - 3.0 [facility] mmol/L [facility] LABORATORY Hgb Blood Gas 11.7 (L) 13.7 - [facility] 16.5 gm/dL [facility] LABORATORY O2HB Art 95.1 94.0 - [facility] 97.0 % [facility] LABORATORY COHB Art 0.6 % [facility] [...] City/State/[place] [address] POCT Glucose (07/08/2017 4:01 PM EST) athologist Signature POC Glucose 148 65 - 199 [place] [facility] mg/dL [facility] LABORATORY Comment: Supplemental [...] Address City/State/ZIP Code Phon e Number [address] POCT Glucose (07/08/2017 3:21 PM EST) athologist Signature POC Glucose 118 65 - 199 [facility] RYAN mg/dL [facility] LABORATORY Comment: Supplemental [...] Address City/State/ZIP Code Phon e Number [address] POCT Glucose (07/08/2017 2:01 PM EST) athologist Signature POC Glucose 129 65 - 199 [place] mg/dL [facility] LABORATORY Comment: Supplemental [...] Address City/State/ZIP Code Phon e Number [address] POCT Glucose (07/08/2017 11:53 AM EST) athologist Signature POC Glucose 156 65 - 199 [facility] mg/dL [facility] LABORATORY Comment: Supplemental [...] Address City/State/[place] [address] POCT Glucose (07/08/2017 11:04 AM EST) athologist Signature POC Glucose 181 65 - 199 [facility] mg/dL [facility]OR[facility]ORY Comment: Supplemental [...] [facility]/[place] [address] (ABNORMAL) POCT Glucose (07/08/2017 9:24 AM EST) athologist Signature POC Glucose 203 (H) 65 - 199 [facility] mg/dL [facility] LABORATORY Comment: Supplemental [...] Address City/State/[place] [address] APTT (07/08/2017 8:40 AM [...] Webber MD HEMATOLOGY ORDERABLES Performing Organization Address City/[facility]/[place] [address] (ABNORMAL) Prothrombin Time (07/08/2017 [...] Address City/State/[place] [address] (ABNORMAL) POCT Glucose (07/08/2017 7:38 AM EST) athologist Signature POC Glucose 232 (H) 65 - 199 [facility] mg/dL [facility] LABORATORY Comment: Supplemental [...] Address City/State/[place] [address] (ABNORMAL) POCT Glucose (07/08/2017 7:07 AM EST) athologist Signature POC Glucose 234 (H) 65 - 199 [place] mg/dL [facility] LABORATORY Comment: Supplemental [...] Address City/State/[place] [address] (ABNORMAL) POCT Glucose (07/08/2017 6:04 AM EST) athologist Signature POC Glucose 225 (H) 65 - 199 [place] mg/dL [facility] LABORATORY Comment: Supplemental [...] Address City/State/[place] [address] (ABNORMAL) POCT Glucose (07/08/2017 5:31 AM EST) athologist Signature POC Glucose 216 (H) 65 - 199 [place] mg/dL [facility] LABORATORY Comment: Supplemental [...] Address City/State/[place] [address] (ABNORMAL) POCT Glucose (07/08/2017 4:52 AM EST) P athologist Signature POC Glucose 257 (H) 65 - 199 [facility] mg/dL [facility] LABORATORY Comment: Supplemental [...] [facility]/[place] [address] (ABNORMAL) BLOOD GAS 2 ARTERIAL (07/08/2017 4:04 AM EST) Analysis Performed At Patho logist Time Signature pH Art 7.30 (L) 7.35 - [facility] 7.45 [facility] LABORATORY pCO2 Art 41 35 - 45 [facility] mmHg [facility] LABOR[facility]ORY pO2 Art 83 (L) 85 - 104 [facility] mmHg [facility] LABORATORY HCO3 Art 19.6 (L) 20.0 - [facility] 26.0 [facility] mmol/L [facility] LABORATORY BE Art -6.8 (L) -3.0 - 3.0 [facility] mmol/L [facility] LABORATORY Hgb Blood Gas 12.2 (L) 13.7 - [facility] 16.5 gm/dL [facility] LABORAT[facility] O2HB Art 93.5 (L) 94.0 - [facility] 97.0 % [facility] LABORATORY COHB [...] [facility] LABORATORY Comment: Noted by hand fretted instrument maker. FIO2 Art 40 % [facility] LABORATORY PF Ratio Art 208 [facility] LABORATORY Specimen Anatomical Collection Method Collection Time Receive d Time (Source) Location / / Volume Laterality Blood specimen 07/08/2017 4:04 AM 017 4:04 (specimen) EST AM EST Daphne Shahid MD CHEMISTRY ORDERABLES Performing Organization Address City/[facility]/[place] [address] Scan, Peripheral Blood (07/08/2017 [...] Webber MD HEMATOLOGY ORDERABLES Performing Organization Address City/[facility]/[place] [address] (ABNORMAL) Differential, Automated (07/08/2017 4:00 AM EST) [facility] Method Time Signature Neutrophils % 85.4 % [facility] LABORATORY Neutr Abs (ANC) 16.07 (H) 1.70 - [facility] 6.10 [facility] x10(3)/[facility] L LABORATORY Lymphocytes % 3.5 % [facility] LABORATORY Lymphocytes Abs 0.6 (L) 0.9 - 3.2 [facility] x10(3)/[facility] LABORATORY Monocytes % 10.4 % [facility] LABORATORY Monocyte Abs 2.0 (H) 0.3 - 0.9 [facility] x10(3)/[facility] LABORATORY Eosinophils % 0.0 % [facility] LABORATORY Eosinophils Abs 0.0 0.0 - 0.4 [facility] x10(3)/[facility] LABORATORY Basophils % 0.1 % [facility] LABORATORY Basophils Abs 0.0 0.0 - 0.1 [facility] x10(3)/[facility] LABORATORY Immature Gran [...] City/State/[place] [address] (ABNORMAL) Hemogram (07/08/2017 4:00 AM EST) Analysis Performed At Patho logist Time Signature WBC 18.8 (H) 4.0 - 9.5 [facility](3[facility] LABORATORY RBC 4.00 (L) 4.58 - BARBARA ZHAORYAN 5.54 [facility] x10(6)/[facility] LABORATORY Hemoglobin 11.9 (L) 13.7 - [facility] 16.5 gm/dL [facility] LABORATORY Hematocrit 35.9 (L) 40.5 - [facility] 48.5 % [facility]ORATORY MCV 89.8 82.9 - [facility] 93.1 [facility] LABORATORY MCH 29.8 27.5 - [facility] 32.1 pg [facility] LABORATORY MCHC 33.1 32.0 - [facility] 35.7 gm/dL [facility] LABORATORY Platelets 232 145 - 357 [facility] x10(3)/[facility] LABORATORY RDWSD 47.6 (H) 36.0 - [place] RYAN 45.0 [facility] LABORATORY RDWCV 14.5 (H) 11.4 - [facility] RYAN 13.8 % [facility] LABORATORY MPV 9.5 7.6 - 12.9 [facility] nRBC % Auto 0.0 % [facility] LABORATORY nRBC Abs Auto 0.000 0.000 - [place] RYAN 0.000 [facility] x10(3)/[facility] LABORATORY Specimen Anatomical Collection Method Collection Time Receive d Time (Source) Location / / Volume Laterality Blood specimen 07/08/2017 4:00 AM 017 4:09 (specimen) EST AM EST Resulting Agency Comment Spec In Lab Yuan Webber MD HEMATOLOGY ORDERABLES Performing Organization Address City/State/[place] [address] (ABNORMAL) Electrolytes panel (07/08/2017 4:00 AM EST) P athologist Signature Sodium 139 135 - 145 [facility] mmol/L [facility] LABORATORY Potassium 4.7 3.5 - 5.0 [facility]/L [facility] LAB[facility] Comment: result rechecked-JLK Please [...] City/State/[place] [address] (ABNORMAL) Cardiac Enzymes (LEB/CGP) (07/08/2017 4:00 AM EST) P athologist Signature Troponin-T 1.88 (H) 0.00 - [facility] 0.00 ng/mL [facility] LABORATORY Comment: [...] additional sample may be indicated. Reference: Third [place] Definition of Myocardial Infarction. Journal of the [...] Webber MD CHEMISTRY ORDERABLES Performing Organization Address City/[facility]/ZIP Code Phon e Number [address] (ABNORMAL) Glucose, fasting (07/08/2017 4:00 AM EST) athologist Signature Glucose 287 (H) 65 - 99 [facility] Fasting mg/dL [facility] LABORATORY Comment: [...] Webber MD CHEMISTRY ORDERABLES Performing Organization Address City/[facility]/ZIP [facility] [place] [address] (ABNORMAL) Creatinine (07/08/2017 4:00 AM EST) Analysis Performed At Patho logist Time Signature Creatinine 1.55 (H) 0.80 - [facility] 1.50 mg/dL [facility] LABORATORY Estimated GFR 44 (L) >=60 [facility] LABORATORY Comment: The reported eGFR should be multiplied b y 1.2 for patients. The MDRD is not an appropriate measure o f renal function for patients with body mass extremes or in patients with acute kidney failure. http://Pikum/DHnkdep http://Pikum/DHMCnkf Specimen Anatomical Collection Method Collection Time Receive d Time (Source) Location / / Volume Laterality Blood specimen 07/08/2017 4:00 AM 017 4:09 (specimen) EST AM EST Resulting Agency Comment Spec In Lab Yuan Webber MD CHEMISTRY ORDERABLES Performing Organization Address City/[facility]/ZIP [facility] Phon e Number [address] BUN (07/08/2017 4:00 AM EST) P athologist Signature BUN 16 10 - 20 [facility] mg/dL [facility] LABORATORY Specimen Anatomical Collection Method Collection Time Receive d Time (Source) Location / / Volume Laterality Blood specimen 07/08/2017 4:00 AM 017 4:09 (specimen) EST AM EST Resulting Agency Comment Spec In Lab Yuan Webber MD CHEMISTRY ORDERABLES Performing Organization Address City/[facility]/ZIP [facility] [place] [address] (ABNORMAL) POCT Glucose (07/08/2017 3:00 AM EST) P athologist Signature POC Glucose 273 (H) 65 - 199 [facility] mg/dL [facility] Comment: Supplemental [...] Address City/State/[place] [address] (ABNORMAL) POCT Glucose (07/08/2017 1:57 AM EST) athologist Signature POC Glucose 288 (H) 65 - 199 [facility] mg/dL [facility] Comment: Supplemental ranges: <140 mg/dL before meals <180 mg/dL all other times of the day Specimen Anatomical Collection Method Collection Time Receive d Time (Source) Location / / Volume Laterality Blood specimen 07/08/2017 1:57 AM 017 1:57 (specimen) EST AM EST Daphne Shhaid MD POINT OF CARE TEST ORDERABLE S Performing Organization Address City/State/[place] [address] (ABNORMAL) POCT Glucose (07/08/2017 1:01 AM EST) athologist Signature POC Glucose 315 (H) 65 - 199 [facility] mg/dL [facility] Comment: [...] Address City/State/[place] [address] (ABNORMAL) BLOOD GAS 2 ARTERIAL (07/08/2017 12:09 AM EST) athologist Signature pH Art 7.26 7.35 - [facility] (Critical) 7.45 [facility]OR[facility] Comment: Noted by hand fretted instrument maker. pCO2 Art 41 35 - [...] [facility] Comment: Noted by hand fretted instrument maker. FIO2 Art 40 % [facility] [...] City/State/[place] [address] (ABNORMAL) POCT Glucose (07/07/2017 10:56 PM EST) athologist Signature POC Glucose 292 (H) 65 - 199 [facility] mg/dL [facility] Comment: Supplemental [...] City/State/[place] [address] (ABNORMAL) BLOOD GAS 2 ARTERIAL (07/07/2017 10:04 PM EST) athologist Signature pH Art 7.22 7.35 - [facility] (Critical) 7.45 [facility] Comment: Noted by hand fretted instrument maker. pCO2 Art 42 35 - [...] [facility] Comment: Noted by hand fretted instrument maker. FIO2 Art 40 % [facility] LABORATORY PF Ratio Art 235 [facility] LABORATORY Specimen Anatomical Collection Method Collection Time Receive d Time (Source) Location / / Volume Laterality Blood specimen 07/07/2017 10:04 7 (specimen) PM EST 10:04 PM EST Daphne Shahid MD CHEMISTRY ORDERABLES Performing Organization Address City/State/ZIP Code Phon e Number [address] (ABNORMAL) Hemoglobin (07/07/2017 10:00 PM EST) P athologist Signature Hemoglobin 12.8 (L) 13.7 - [facility] 16.5 gm/dL [facility] LABORATORY Specimen Anatomical Collection Method Collection Time Receive d Time (Source) Location / / Volume Laterality Blood specimen 07/07/2017 10:00 7 (specimen) PM EST 10:13 PM EST Resulting Agency Comment Spec In Lab Yuan Webber MD HEMATOLOGY ORDERABLES Performing Organization Address City/State/ZIP Code Phon e Number [address] (ABNORMAL) Potassium (07/07/2017 10:00 PM EST) P athologist Signature Potassium 3.4 (L) 3.5 - 5.0 [facility] mmol/L [facility]OR[facility] Comment: Please [...] Webber MD CHEMISTRY ORDERABLES Performing Organization Address City/[facility]/[place] [address] (ABNORMAL) POCT Glucose (07/07/2017 8:49 PM EST) athologist Signature POC Glucose 241 (H) 65 - 199 [facility] mg/dL [facility] Comment: Supplemental [...] [facility]/[place] [address] Prepare Albumin 5% in 250 mL (07/07/2017 8:03 PM EST) athologist Signature Dispensed? Yes [facility]OR[facility] Specimen Anatomical Collection Method Collection Time Receive d Time (Source) Location / / Volume Laterality Blood specimen No Charge / 07/07/2017 8:03 PM 017 8:04 (specimen) Unknown EST PM EST Resulting Agency Comment Spec In Lab Michael BROWN BLOOD BANK ORDERABLES Performing Organization Address City/[facility]/[place] [address] EKG 12 Lead (07/07/2017 7:17 PM EST) Component Value Ref Range Test Analysis Performed Pathologis t Method Time At Signature Ventricular rate 75 BPM MUSE SYSTEM Atrial Rate 75 BPM MUSE SYSTEM P-R Interval 168 ms MUSE SYSTEM QRS Duration 104 ms MUSE SYSTEM Q-T Interval 462 ms MUSE SYSTEM QTC Calculated 515 ms MUSE SYSTEM (Bezet) Calculated P [place] 52 degrees MUSE SYSTEM Calculated R [place] -40 degrees MUSE SYSTEM Calculated T [place] 39 degrees MUSE SYSTEM INTERPRETATION Normal sinus [...] Signature pH Art 7.21 7.35 - [facility] (Critical) 7.45 [facility] LABORATORY Comment: Noted by hand fretted instrument maker. pCO2 Art 50 (H) 35 [...] [facility] LABORATORY Comment: Noted by hand fretted instrument maker. Please note: Patients with WBC [...] [facility] Comment: Noted by hand fretted instrument maker. FIO2 Art 100 % [facility] LABORATORY PF Ratio Art 238 [facility] LABORATORY Specimen Anatomical Collection Method Collection Time Receive d Time (Source) Location / / Volume Laterality Blood specimen 07/07/2017 6:57 PM 017 6:57 (specimen) EST PM EST Daphne Shahid MD CHEMISTRY ORDERABLES Performing Organization Address City/State/[place] [address] (ABNORMAL) BLOOD GAS 2 ARTERIAL (07/07/2017 5:31 PM EST) P athologist Signature pH Art 7.29 7.35 - [facility] (Critical) 7.45 [facility]OR[facility] Comment: Noted by hand fretted instrument maker. pCO2 Art 48 (H) 35 [...] City/State/[place] [address] Fibrinogen (07/07/2017 5:30 PM EST) P athologist Signature Fibrinogen 224 180 - 510 [facility] mg/dL [facility] Comment: Called by: JETE, Read back by: Monica Campos on/OR16, Date/Time:07/07/17 [...] HEMATOLOGY ORDERABLES Performing Organization Address [facility] Phon e Number [address] APTT (07/07/2017 5:30 PM [...] HEMATOLOGY ORDERABLES Performing Organization Address [facility] [place] [address] (ABNORMAL) Prothrombin Time (07/07/2017 [...] HEMATOLOGY ORDERABLES Performing Organization Address [facility]/[place] [address] (ABNORMAL) Hemogram (07/07/2017 5:30 PM EST) athologist Signature WBC 19.6 (H) 4.0 - 9.5 [facility] x10(3)/[facility] LABORATORY RBC 3.08 (L) 4.58 - [facility] 5.54 [facility] x10(6)/[facility] LABORATORY Hemoglobin 9.2 (L) 13.7 - [facility] 16.5 gm/dL [facility] Hematocrit 28.0 (L) 40.5 - [facility] 48.5 % [facility] Comment: This result has [...] City/State/[place] [address] Prepare Platelets, Apheresis (07/07/2017 5:00 PM EST) P athologist Signature Dispensed? Yes [facility] Specimen Anatomical Collection Method Collection Time Receive d Time (Source) Location / / Volume Laterality Blood specimen 07/07/2017 5:00 PM 017 4:58 (specimen) EST PM EST Daphne Shahid MD BLOOD BANK ORDERABLES Performing Organization Address City/State/[place] [address] Platelet count (07/07/2017 4:55 PM EST) athologist Signature Platelets 177 145 - 357 [facility] x10(3)/[facility] LABORATORY Plat Immature 1.5 0.0 - 7.4 [facility] % % [facility] Comment: Limitation of the Immature Platelet Frac tion (IPF)-May be less reliable when the platelet count is less than 94w299/u L due to statistical imprecision. The IPF [...] in a decreased state of production. References: [employer] The Clinical Value of the Immature Platelet Fraction (IPF) in Cell Recovery Document Number [id number] 12/2010 [employer] The Role of the Imm ature Platelet Fraction (IPF) in the Differential Diagnosis of Thrombocytopen ia, Document [id number] V012/04/13 P012/06 Specimen Anatomical Collection Method Collection Time Receive d Time (Source) Location / / Volume Laterality Blood specimen 07/07/2017 4:55 PM 017 5:13 (specimen) EST PM EST Resulting Agency Comment Spec In Lab Daphne Shahid MD HEMATOLOGY ORDERABLES Performing Organization Address City/[facility]/[place] [address] (ABNORMAL) Hemoglobin and Hematocrit, blood (07/07/2017 4:55 PM EST) P athologist Signature Hemoglobin 9.1 (L) 13.7 - 16.5 [facility] Comment: This result has [...] Shahid MD HEMATOLOGY ORDERABLES Performing Organization Address City/[facility]/[place] [address] (ABNORMAL) BLOOD GAS 2 ARTERIAL (07/07/2017 4:38 PM EST) Analysis Performed At Patho logist Time Signature pH Art 7.37 7.35 - [facility] 7.45 [facility] pCO2 Art 44 35 - 45 [facility] mmHg [facility] pO2 Art 322 (H) 85 - 104 [facility] mmHg [facility] HCO3 Art 24.9 20.0 - [facility] 26.0 [facility] mmol/L [facility] BE Art -0.4 -3.0 - 3.0 [facility] mmol/L [facility] Hgb Blood Gas 10.1 (L) 13.7 - [facility] 16.5 gm/dL [facility] O2HB Art 98.7 (H) 94.0 - [facility] 97.0 % [facility] COHB Art 0.1 % [facility] [...] [facility] Comment: Noted by hand fretted instrument maker. Note: ??Total bilirubin higher than [...] City/State/[place] [address] (ABNORMAL) BLOOD GAS 2 VENOUS (07/07/2017 4:06 PM EST) Analysis Performed At Patho logist Time Signature pH Cody 7.31 (L) 7.32 - [facility] 7.42 [facility] pCO2 Cody 47 41 - 51 [facility] LABORATORY pO2 Cody 53 (H) 25 - 40 [facility] LABORATORY HCO3 Cody 22.7 mmol/L [facility] BE Cody -3.7 mmol/L [facility] Hgb Blood Gas 10.2 (L) 13.7 - [facility] 16.5 gm/dL [facility] O2HB Cody 81.0 % MAY[facility] [...] [facility] Comment: Noted by hand fretted instrument maker. Note: ??Total bilirubin higher than [...] City/State/[place] [address] (ABNORMAL) BLOOD GAS 2 ARTERIAL (07/07/2017 4:05 PM EST) Analysis Performed At Patho logist Time Signature pH Art 7.36 7.35 - [facility] 7.45 [facility] pCO2 Art 40 35 - 45 [facility] LABORATORY pO2 Art 282 (H) 85 - 104 [facility] LABORATORY HCO3 Art 22.1 20.0 - [facility] 26.0 [facility] mmol/L [facility] BE Art -3.4 (L) -3.0 - 3.0 [facility] mmol/L [facility] Hgb Blood Gas 10.2 (L) 13.7 - [facility] 16.5 gm/dL [facility] O2HB Art 98.4 (H) 94.0 - [facility] 97.0 % [facility] COHB Art 0.3 % MAY[facility] [...] [facility] Comment: Noted by hand fretted instrument maker. Note: ??Total bilirubin higher than [...] City/State/[place] [address] (ABNORMAL) BLOOD GAS 2 ARTERIAL (07/07/2017 2:29 PM EST) Analysis Performed At Patho logist Time Signature pH Art 7.43 7.35 - [facility] 7.45 [facility] pCO2 Art 36 35 - 45 [facility] LABORATORY pO2 Art 221 (H) 85 - 104 [facility] LABORATORY HCO3 Art 23.2 20.0 - [facility] 26.0 [facility] mmol/L [facility] BE Art -1.2 -3.0 - 3.0 [facility] mmol/L [facility] Hgb Blood Gas 13.9 13.7 - [facility] 16.5 gm/dL [facility] O2HB Art 97.8 (H) 94.0 - [facility] 97.0 % [facility] COHB Art 1.1 % MAY[facility] [...] Address City/State/[place] [address] Prepare Coag Factors (Non-Hemophilia) (07/07/2017 1:25 PM EST) P athologist Signature Dispensed? Yes [facility] Specimen Anatomical Collection Method Collection Time Receive d Time (Source) Location / / Volume Laterality Blood specimen 07/07/2017 1:25 PM 017 1:21 (specimen) EST PM EST Daphne Shahid MD BLOOD BANK ORDERABLES Performing Organization Address City/State/ZIP Code Phon e Number [address] Prepare RBC (07/07/2017 1:10 PM EST) athologist Signature Dispensed? Yes [facility] Specimen Anatomical Collection Method Collection Time Receive d Time (Source) Location / / Volume Laterality Blood specimen 07/07/2017 1:10 PM 017 1:05 (specimen) EST PM EST Daphne Shahid MD BLOOD BANK ORDERABLES Performing Organization Address City/State/[place] [address] POCT Glucose (07/07/2017 11:56 AM EST) athologist Signature POC Glucose 188 65 - 199 [facility] mg/dL [facility] Comment: Supplemental [...] Address City/State/[place] [address] POCT Glucose (07/07/2017 11:05 AM EST) athologist Signature POC Glucose 168 65 - 199 [facility] Comment: Supplemental [...] Address City/State/[place] [address] POCT Glucose (07/07/2017 10:02 AM EST) P athologist Signature POC Glucose 191 65 - 199 [facility] mg/dL [facility] Comment: Supplemental [...] Address City/State/[place] [address] POCT Glucose (07/07/2017 7:53 AM EST) athologist Signature POC Glucose 178 65 - 199 [facility] mg/dL [facility] Comment: Supplemental [...] Address City/State/ZIP Code Phon e Number [address] POCT Glucose (07/07/2017 7:03 AM EST) athologist Signature POC Glucose 188 65 - 199 [facility] mg/dL [facility] Comment: Supplemental [...] Address City/State/[place] [address] (ABNORMAL) POCT Glucose (07/07/2017 6:17 AM EST) athologist Signature POC Glucose 207 (H) 65 - 199 [facility] Comment: Supplemental [...] [facility]/ZIP Code Phon e Number [address] Differential, Automated (07/07/2017 5:15 AM EST) athologist Signature Neutrophils % 69.7 % [facility] Neutr Abs (ANC) 5.32 1.70 - [facility] 6.10 [facility] x10(3)/[facility] LABORATORY Lymphocytes % 16.3 % [facility] Lymphocytes Abs 1.2 0.9 - 3.2 [facility] x10(3)/[facility] LABORATORY Monocytes % 10.5 % [facility] Monocyte Abs 0.8 0.3 - 0.9 [facility] x10(3)/[facility] LABORATORY Eosinophils % 2.5 % [facility] Eosinophils Abs 0.2 0.0 - 0.4 [facility] x10(3)/[facility] LABORATORY Basophils % 0.7 % [facility] Basophils Abs 0.0 0.0 - 0.1 [facility] x10(3)/[facility] LABORATORY Immature Gran % 0.30 [...] Melisa Gran Abs 0.02 0.00 - 0.04 x10(3)/[facility] LABORATORY Specimen Anatomical Collection Method Collection Time Receive d Time (Source) Location / / Volume Laterality Blood specimen 07/07/2017 5:15 AM 017 5:34 (specimen) EST AM EST Resulting Agency Comment Spec In Lab Daphne Shahid MD HEMATOLOGY ORDERABLES Performing Organization Address City/State/[place] [address] (ABNORMAL) Hemogram (07/07/2017 5:15 AM EST) Analysis Performed At Patho logist Time Signature WBC 7.6 4.0 - 9.5 [facility] x10(3)/[facility] LABORATORY RBC 4.82 4.58 - [facility] 5.54 [facility] x10(6)/[facility] Hemoglobin 14.4 13.7 - [facility] 16.5 gm/dL [facility] Hematocrit 42.1 40.5 - [facility] 48.5 % [facility] MCV 87.3 82.9 - [facility] 93.1 [facility] LABORATORY MCH 29.9 27.5 - [facility] 32.1 pg [facility] MCHC 34.2 32.0 - [facility] 35.7 gm/dL [facility] Platelets 188 145 - 357 [facility] x10(3)/[facility] LABORATORY RDWSD 45.1 (H) 36.0 - [facility] 45.0 [facility] LABORATORY RDWCV 14.3 (H) 11.4 - [facility] 13.8 % [facility] MPV 9.4 7.6 - 12.9 [facility] LABORATORY nRBC % Auto 0.0 % [facility] nRBC Abs Auto 0.000 0.000 - [facility] 0.000 [facility] x10(3)/[facility] LABORATORY Specimen Anatomical Collection Method Collection Time Receive d Time (Source) Location / / Volume Laterality Blood specimen 07/07/2017 5:15 AM 017 5:34 (specimen) EST AM EST Resulting Agency Comment Spec In Lab Daphne Shahid MD HEMATOLOGY ORDERABLES Performing Organization Address City/[facility]/[place] [address] (ABNORMAL) APTT (07/07/2017 5:15 [...] Shahid MD HEMATOLOGY ORDERABLES Performing Organization Address City/[facility]/[place] [address] Magnesium (07/07/2017 5:15 AM EST) athologist Signature Magnesium 0.94 0.69 - 1.07 [facility] mmol/L [facility] Specimen Anatomical Collection Method Collection Time Receive d Time (Source) Location / / Volume Laterality Blood specimen 07/07/2017 5:15 AM 017 5:34 (specimen) EST AM EST Resulting Agency Comment Spec In Lab Daphne Shahid MD CHEMISTRY ORDERABLES Performing Organization Address City/[facility]/[place] [address] (ABNORMAL) Basic Metabolic Panel (non-fasting) (07/07/2017 5:15 AM EST) athologist Signature Glucose Lvl 203 (H) 65 - 199 [facility] mg/dL [facility] Comment: Diabetes: [...] or in patients with acute kidney failure. [email or web address]/DHnkdep [email or web address]://Pikum/DHMCnkf Specimen Anatomical Collection Method Collection Time Receive d Time (Source) Location / / Volume Laterality Blood specimen 07/07/2017 5:15 AM 017 5:34 (specimen) EST AM EST Resulting Agency Comment Spec In Lab Daphne Shahid MD CHEMISTRY ORDERABLES Performing Organization Address City/State/[place] [address] (ABNORMAL) Cardiac Enzymes (LEB/CGP) (07/07/2017 5:15 AM EST) athologist Signature Troponin-T 2.07 (H) 0.00 - [facility] 0.[facility] ng/mL [facility] Comment: [...] additional sample may be indicated. Reference: Third [place] Definition of Myocardial Infarction. Journal of the [...] City/State/[place] [address] POCT Glucose (07/07/2017 5:01 AM EST) P athologist Signature POC Glucose 182 65 - 199 [facility] mg/dL [facility] Comment: Supplemental [...] Address City/State/ZIP Code Phon e Number [address] POCT Glucose (07/07/2017 4:08 AM EST) P athologist Signature POC Glucose 199 65 - 199 [facility] mg/dL [facility] Comment: Supplemental [...] [facility]/ZIP Code Phon e Number [address] POCT Glucose (07/07/2017 3:03 AM EST) athologist Signature POC Glucose 188 65 - 199 [facility] mg/dL [facility] Comment: Supplemental [...] Address City/State/[place] [address] (ABNORMAL) POCT Glucose (07/07/2017 2:08 AM EST) athologist Signature POC Glucose 200 (H) 65 - 199 [facility] mg/dL [facility] Comment: Supplemental [...] Address City/State/[place] [address] (ABNORMAL) POCT Glucose (07/07/2017 1:31 AM EST) P athologist Signature POC Glucose 209 (H) 65 - 199 [facility] mg/dL [facility] Comment: [...] Address City/State/[place] [address] XR Chest PA or [...] Signature POC Glucose 161 65 - 199 [facility] Comment: Supplemental [...] [facility]/ZIP Code Phon e Number [address] (ABNORMAL) APTT (07/07/2017 12:00 [...] Address City/State/[place] [address] POCT Glucose (07/06/2017 9:55 PM EST) athologist Signature POC Glucose 109 65 - 199 [facility] mg/dL [facility] Comment: [...] Address City/State/ZIP Code Phon e Number [address] POCT Glucose (07/06/2017 9:04 PM EST) athologist Signature POC Glucose 120 65 - 199 [facility] mg/dL [facility] Comment: Supplemental [...] Address City/State/[place] [address] POCT Glucose (07/06/2017 7:45 PM EST) athologist Signature POC Glucose 158 65 - 199 [facility]/dL [facility] Comment: Supplemental [...] [facility]/[place] [address] Potassium (07/06/2017 7:40 PM EST) athologist Signature Potassium 3.9 3.5 - 5.0 [facility] mmol/L [facility] Comment: Please [...] City/State/[place] [address] (ABNORMAL) Cardiac Enzymes (LEB/CGP) (07/06/2017 7:40 PM EST) athologist Signature Troponin-T 2.27 (H) 0.00 - [facility] 0.00 ng/mL [facility] Comment: [...] additional sample may be indicated. Reference: Third [place] Definition of Myocardial Infarction. Journal of the [...] Address City/State/[place] [address] (ABNORMAL) POCT Glucose (07/06/2017 7:13 PM EST) P athologist Signature POC Glucose 200 (H) 65 - 199 [facility] mg/dL [facility] Comment: Supplemental [...] Address City/State/ZIP Code Phon e Number [address] (ABNORMAL) APTT (07/06/2017 6:15 [...] Address City/State/[place] [address] (ABNORMAL) POCT Glucose (07/06/2017 6:03 PM EST) athologist Signature POC Glucose 236 (H) 65 - 199 [facility] mg/dL [facility] Comment: Supplemental [...] Address City/State/[place] [address] (ABNORMAL) POCT Glucose (07/06/2017 5:01 PM EST) P athologist Signature POC Glucose 235 (H) 65 - 199 [facility] mg/dL [facility] Comment: Supplemental [...] [facility]/[place] [address] (ABNORMAL) POCT Glucose (07/06/2017 4:06 PM EST) athologist Signature POC Glucose 202 (H) 65 - 199 [facility] mg/dL [facility] Comment: Supplemental [...] Address City/State/[place] [address] POCT Glucose (07/06/2017 2:59 PM EST) P athologist Signature POC Glucose 178 65 - 199 [facility] mg/dL [facility] Comment: Supplemental [...] [facility]/[place] [address] (ABNORMAL) Cardiac Enzymes (LEB/CGP) (07/06/2017 2:10 PM EST) P athologist Signature Troponin-T 2.34 (H) 0.00 - [facility] 0.[facility] ng/mL [facility] Comment: [...] additional sample may be indicated. Reference: Third [place] Definition of Myocardial Infarction. Journal of the [place] [employer] 2012;60:1581-98 CK, Total 101 0 - 200 unit/L [facility] Specimen Anatomical Collection Method Collection Time Receive d Time (Source) Location / / Volume Laterality Blood specimen 07/06/2017 2:10 PM 017 2:26 (specimen) EST PM EST Resulting Agency Comment Spec In Lab Daphne Shahid MD CHEMISTRY ORDERABLES Performing Organization Address City/[facility]/[place] [address] POCT Glucose (07/06/2017 2:08 PM EST) P athologist Signature POC Glucose 192 65 - 199 [facility] mg/dL [facility] Comment: Supplemental [...] Address City/State/ZIP Code Phon e Number [address] POCT Glucose (07/06/2017 1:04 PM EST) athologist Signature POC Glucose 162 65 - 199 [facility] Comment: Supplemental [...] Address City/State/ZIP Code Phon e Number [address] POCT Glucose (07/06/2017 12:05 PM EST) athologist Signature POC Glucose 196 65 - 199 [facility] mg/dL [facility] Comment: Supplemental [...] Address City/State/ZIP Code Phon e Number [address] EKG 12 Lead (07/06/2017 12:00 PM EST) Component Value Ref Range Test Analysis Performed Pathologis t Method Time At Signature Ventricular rate 91 BPM MUSE SYSTEM Atrial Rate 91 BPM MUSE SYSTEM P-R Interval 140 ms MUSE SYSTEM QRS Duration 94 ms MUSE SYSTEM Q-T Interval 394 ms MUSE SYSTEM QTC Calculated 484 ms MUSE SYSTEM (Bezet) Calculated P [place] 36 degrees MUSE SYSTEM Calculated R [place] -19 degrees MUSE SYSTEM Calculated T [place] 104 degrees MUSE SYSTEM INTERPRETATION Normal sinus rhythm MUSE SYSTEM 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) ST & T wave abnormality, consider lateral ischemia Abnormal ECG When compared with ECG of 05-JUL-2017 20:39, No significant change was found Confirmed by MD Luci, Taurus Braun ([id number]) on 07/06/2017 5:07:33 PM Specimen Anatomical Collection Method Collection Time Receive d Time (Source) Location / / Volume Laterality 07/06/2017 12:00 07/06/2017 5:07 PM EST PM EST Daphne Shahid MD ECG ORDERABLES Performing Organization Address City/[facility]/ZIP Code Phon e Number MUSE SYSTEM ABORH Recheck Status (07/06/2017 12:00 PM EST) [facility] Method Time Signature ABORH Type Completed [facility] LABORATORY Specimen Anatomical Collection Method Collection Time Receive d Time (Source) Location / / Volume Laterality Blood specimen 07/06/2017 12:00 7 (specimen) PM EST 12:24 PM EST Resulting Agency Comment Spec In Lab Daphne Shahid MD BLOOD BANK ORDERABLES Performing Organization Address City/[facility]/[place] [address] Antibody screen (07/06/2017 12:00 PM EST) [facility] [employer] Method Time Signature Ab Screen Negative [facility] LABORATORY Expires at 07/09/2017 [facility] [id number] on: [facility] Specimen Anatomical Collection Method Collection Time Receive d Time (Source) Location / / Volume Laterality Blood specimen 07/06/2017 12:00 7 (specimen) PM EST 12:24 PM EST Resulting Agency Comment Spec In Lab Daphne Shahid MD BLOOD BANK ORDERABLES Performing Organization Address City/[facility]/ZIP Code Phon e Number [address] ABO/Rh Typing (07/06/2017 12:00 [...] Address City/State/[place] [address] Prothrombin Time (07/06/2017 11:24 [...] Shahid MD HEMATOLOGY ORDERABLES Performing Organization Address City/[facility]/ZIP Code Phon e Number [place] [id number]OS[address] (ABNORMAL) APTT (07/06/2017 11:24 [...] Address City/State/ZIP Code Phon e Number [address] POCT Glucose (07/06/2017 11:02 AM EST) athologist Signature POC Glucose 187 65 - 199 [facility] mg/dL [facility] Comment: Supplemental [...] Address City/State/[place] [address] POCT Glucose (07/06/2017 10:18 AM EST) athologist Signature POC Glucose 193 65 - 199 [facility] mg/dL [facility] Comment: Supplemental [...] Address City/State/[place] [address] POCT Glucose (07/06/2017 9:25 AM EST) athologist Signature POC Glucose 182 65 - 199 [facility] mg/dL [facility] Comment: Supplemental [...] [facility]/[place] [address] HOSPITAL [address] (ABNORMAL) Cardiac Enzymes (LEB/CGP) (07/06/2017 8:10 AM EST) athologist Signature Troponin-T 2.26 (H) 0.00 - BARBARA RYAN 0.00 ng/mL [facility] LABORAT[facility] Comment: [...] additional sample may be indicated. Reference: Third [place] Definition of Myocardial Infarction. Journal of the [...] Address City/State/ZIP Code Phon e Number [place] RYAN[address] Magnesium (07/06/2017 8:10 AM EST) athologist Signature Magnesium 0.84 0.69 - 1.07 [facility] mmol/L [facility] LABORATORY Specimen Anatomical Collection Method Collection Time Receive d Time (Source) Location / / Volume Laterality Blood specimen 07/06/2017 8:10 AM 017 8:21 (specimen) EST AM EST Resulting Agency Comment Spec In Lab Daphne Shahid MD CHEMISTRY ORDERABLES Performing Organization Address City/State/ZIP Code Phon e Number [address] (ABNORMAL) Basic Metabolic Panel (non-fasting) (07/06/2017 8:10 AM EST) athologist Signature Glucose Lvl 199 65 - 199 [facility] mg/dL [facility] Comment: Diabetes: [...] or in patients with acute kidney failure. http://Adpoints.iLive/DHnkdep http://Adpoints.iLive/DHMCnkf Specimen Anatomical Collection Method Collection Time Receive d Time (Source) Location / / Volume Laterality Blood specimen 07/06/2017 8:10 AM 017 8:21 (specimen) EST AM EST Resulting Agency Comment Spec In Lab Daphne Shahid MD CHEMISTRY ORDERABLES Performing Organization Address City/[facility]/ZIP Code Phon e Number [address] POCT Glucose (07/06/2017 7:34 AM EST) athologist Signature POC Glucose 198 65 - 199 [facility]/dL [facility] Comment: [...] [facility]/ZIP Code Phon e Number [address] POCT Glucose (07/06/2017 7:03 AM EST) athologist Signature POC Glucose 181 65 - 199 [facility] Comment: Supplemental [...] [facility]/ZIP Code Phon e Number [address] XR Chest PA or [...] POC Glucose 172 65 - 199 [facility] mg/dL [facility] Comment: Supplemental [...] Address City/State/ZIP Code Phon e Number [address] POCT Glucose (07/06/2017 5:08 AM EST) athologist Signature POC Glucose 154 65 - 199 [place] RY[place] mg/dL [facility] Comment: Supplemental [...] Address City/State/ZIP Code Phon e Number [address] POCT Glucose (07/06/2017 4:05 AM EST) athologist Signature POC Glucose 142 65 - 199 [place] R[place] mg/dL [facility] Comment: Supplemental [...] Address City/State/[place] [address] POCT Glucose (07/06/2017 3:00 AM EST) athologist Signature POC Glucose 116 65 - 199 [facility] RYAN mg/dL [facility] Comment: Supplemental [...] [facility]/[place] [address] [facility] [address] Potassium (07/06/2017 2:20 AM EST) athologist Signature Potassium 3.9 3.5 - 5.0 [facility] mmol/L [facility] Comment: Please [...] Shahid MD CHEMISTRY ORDERABLES Performing Organization Address City/[facility]/ZIP Code Phon e Number [address] Differential, Automated (07/06/2017 2:20 AM EST) athologist Signature Neutrophils % 72.9 % [facility] Neutr Abs (ANC) 5.53 1.70 - [facility] 6.10 [facility] x10(3)/[facility] LABORATORY Lymphocytes % 16.4 % [facility] LABORATORY Lymphocytes Abs 1.2 0.9 - 3.2 [facility] x10(3)/[facility] LABORATORY Monocytes % 9.4 % [facility] Monocyte Abs 0.7 0.3 - 0.9 [facility] x10(3)/[facility] LABORATORY Eosinophils % 0.5 % [facility] Eosinophils Abs 0.0 0.0 - 0.4 [facility] x10(3)/[facility] LABORATORY Basophils % 0.4 % [facility] Basophils Abs 0.0 0.0 - 0.1 [facility] x10(3)/[facility] LABORATORY Immature Gran % 0.40 [...] Melisa Gran Abs 0.03 0.00 - 0.04 x10(3)/[facility] Y [facility] LABORATORY Specimen Anatomical Collection Method Collection Time Receive d Time (Source) Location / / Volume Laterality Blood specimen 07/06/2017 2:20 AM 017 2:33 (specimen) EST AM EST Resulting Agency Comment Spec In Lab Daphne Shahid MD HEMATOLOGY ORDERABLES Performing Organization Address City/State/[place] [address] (ABNORMAL) Hemogram (07/06/2017 2:20 AM EST) Analysis Performed At Patho logist Time Signature WBC 7.6 4.0 - 9.5 [facility] x10(3)/[facility] LABORATORY RBC 4.52 (L) 4.58 - [facility] 5.54 [facility] x10(6)/[facility] LABORATORY Hemoglobin 13.4 (L) 13.7 - [facility] 16.5 gm/dL [facility] Hematocrit 39.7 (L) 40.5 - [facility] 48.5 % [facility] MCV 87.8 82.9 - [facility] 93.1 [facility] LABORATORY MCH 29.6 27.5 - [facility] RYAN 32.1 pg [facility]AT[facility] MCHC 33.8 32.0 - [facility] 35.7 gm/dL [facility] Platelets 189 145 - 357 [facility] x10(3)/[facility] LABORATORY RDWSD 45.6 (H) 36.0 - [facility] 45.0 [facility] LABORATORY RDWCV 14.3 (H) 11.4 - [facility] RYAN 13.8 % [facility] LABORATORY MPV 9.1 7.6 - 12.9 [facility] LABORATORY nRBC % Auto 0.0 % [facility] nRBC Abs Auto 0.000 0.000 - BARBARA DAVIS 0.000 [facility] x10(3)/[facility] LABORATORY Specimen Anatomical Collection Method Collection Time Receive d Time (Source) Location / / Volume Laterality Blood specimen 07/06/2017 2:20 AM 017 2:33 (specimen) EST AM EST Resulting Agency Comment Spec In Lab Daphne Shahid MD HEMATOLOGY ORDERABLES Performing Organization Address City/State/ZIP Code Phon e Number [address] (ABNORMAL) APTT (07/06/2017 2:20 [...] Shahid MD HEMATOLOGY ORDERABLES Performing Organization Address City/[facility]/ZIP Code Phon e Number [address] POCT Glucose (07/06/2017 2:20 AM EST) P athologist Signature POC Glucose 115 65 - 199 [facility] mg/dL [facility] Comment: Supplemental [...] Address City/State/[place] [address] (ABNORMAL) Cardiac Enzymes (LEB/CGP) (07/06/2017 2:20 AM EST) P athologist Signature Troponin-T 2.13 (H) 0.00 - BAR[place] RYAN 0.00 ng/mL [facility] Comment: [...] additional sample may be indicated. Reference: Third [place] Definition of Myocardial Infarction. Journal of the [...] City/State/[place] [address] (ABNORMAL) Hemoglobin A1c (07/06/2017 2:20 AM EST) Analysis Performed At Patho logist Time Signature Hemoglobin A1C 6.8 (H) 4.3 - 5.6 [facility] % [facility] Comment: Reference Range: 4.3 [...] Mellitus, Diabetes Care 2013; 36: Suppl. 1, S67-52 Est Avg Gluc See note mg/dL GRACE [...] into estimated average glucose values. ??Diabetes Care 2008:31(8):4952-8440. Specimen Anatomical Collection Method Collection Time Receive d Time (Source) Location / / Volume Laterality Blood specimen 07/06/2017 2:20 AM 017 2:34 (specimen) EST AM EST Resulting Agency Comment Spec In Lab Daphne Shahid MD CHEMISTRY ORDERABLES Performing Organization Address City/State/[place] [address] (ABNORMAL) Lipid Panel (07/06/2017 2:20 AM EST) Patholo gist Method Time Signature Chol, Total 150 <=239 [place] mg/dL [facility] LABORATORY Triglycerides 129 <=199 [facility] mg/dL [facility] LABORATORY HDL 32 (L) >=40 [place] mg/dL [facility] LABORATORY LDL Cholesterol 92 <=190 [facility] mg/dL [facility] LABORATORY Chol/HDL Ratio 4.7 ratio [facility] Lipid See Note BARBARA Interpretation [facility] Comment: Lipid management should be guided by a p atient? s ASCVD risk, goals and preferences. ACC/AHA Guidelines recommend high intens ity statin if clinical ASCVD or LDL greater than or equal to 190 mg/dL. http://Adpoints.iLive/WCG-EZO-Swkfxtnyq Adults aged 40-75 with LDL 70-189 mg/dL should have their 10 year ASCVD risk estimated with the ACC/AHA ASCVD risk es timator http://tools.acc.org/QAOSG-Iwei-Eqscdioz r/ Statin should be discussed if risk [...] Address City/State/[place] [address] POCT Glucose (07/06/2017 1:09 AM EST) P athologist Signature POC Glucose 121 65 - 199 [facility] mg/dL [facility] Comment: Supplemental [...] Address City/State/[place] [address] POCT Glucose (07/06/2017 12:06 AM EST) P athologist Signature POC Glucose 147 65 - 199 [place] RYAN mg/dL [facility] Comment: Supplemental [...] Address City/State/[place] [address] (ABNORMAL) POCT Glucose (07/05/2017 10:56 PM EST) P athologist Signature POC Glucose 200 (H) 65 - 199 [place] RYAN mg/dL [facility] Comment: Supplemental [...] Address City/State/[place] [address] (ABNORMAL) POCT Glucose (07/05/2017 10:05 PM EST) P athologist Signature POC Glucose 225 (H) 65 - 199 [place] RYAN mg/dL [facility] Comment: Supplemental [...] Address City/State/[place] [address] (ABNORMAL) POCT Glucose (07/05/2017 9:02 PM EST) P athologist Signature POC Glucose 301 (H) 65 - 199 [facility] mg/dL [facility] Comment: Supplemental [...] Address City/State/[place] [address] XR Chest PA or [...] 474 ms MUSE SYSTEM (Bezet) Calculated P [place] 50 degrees MUSE SYSTEM Calculated R [place] -28 degrees MUSE SYSTEM Calculated T Bon[place] 90 degrees MUSE SYSTEM INTERPRETATION Sinus tachycardia [...] Abs (ANC) 9.08 (H) 1.70 - [facility] 6.10 [facility] x10(3)/[facility] L LABORATORY Lymphocytes % 7.0 % [facility] Lymphocytes Abs 0.7 (L) 0.9 - 3.2 [facility] x10(3)/[facility] LABORATORY Monocytes % 3.7 % [facility]OR[facility] Monocyte Abs 0.4 0.3 - 0.9 [facility] x10(3)/[facility] LABORATORY Eosinophils % 0.1 % [facility] Eosinophils Abs 0.0 0.0 - 0.4 [facility] x10(3)/[facility] LABORATORY Basophils % 0.2 % [facility] Basophils Abs 0.0 0.0 - 0.1 [facility] x10(3)/[facility] LABORATORY Immature Gran [...] City/State/[place] [address] (ABNORMAL) Hemogram (07/05/2017 8:20 PM EST) Analysis Performed At Patho logist Time Signature WBC 10.3 (H) 4.0 - 9.5 [facility] x10(3)/[facility] LABORATORY RBC 4.64 4.58 - [facility] 5.54 [facility] x10(6)/[facility] LABORATORY Hemoglobin 14.1 13.7 - [facility] 16.5 gm/dL [facility] Hematocrit 40.8 40.5 - [facility] 48.5 % [facility] MCV 87.9 82.9 - [facility] 93.1 [facility] LABORATORY MCH 30.4 27.5 - [place] OLIVASCK 32.1 pg [facility] LABORAT[facility] MCHC 34.6 32.0 - [place] OLIVASCK 35.7 gm/dL [facility] Platelets 204 145 - 357 [facility] x10(3)/[facility] LABORATORY RDWSD 46.1 (H) 36.0 - [facility] 45.0 [facility] LABORATORY RDWCV 14.5 (H) 11.4 - [facility] RYAN 13.8 % [facility] LABORATORY MPV 9.7 7.6 - 12.9 [facility] LABORATORY nRBC % Auto 0.0 % [facility] LABORATORY nRBC Abs Auto 0.000 0.000 - BARBARA ZHAORYAN 0.000 [facility] x10(3)/[facility] LABORATORY Specimen Anatomical Collection Method Collection Time Receive d Time (Source) Location / / Volume Laterality Blood specimen 07/05/2017 8:20 PM 017 8:27 (specimen) EST PM EST Resulting Agency Comment Spec In Lab Daphne Shahid MD HEMATOLOGY ORDERABLES Performing Organization Address City/State/[place] [address] APTT (07/05/2017 8:20 PM [...] Address City/State/[place] [address] (ABNORMAL) Cardiac Enzymes (LEB/CGP) (07/05/2017 8:20 PM EST) athologist Signature Troponin-T 2.11 (H) 0.00 - BARBAR[place] OLIVASCK 0.00 ng/mL [facility] Comment: [...] additional sample may be indicated. Reference: Third [place] Definition of Myocardial Infarction. Journal of the [...] City/State/[place] [address] (ABNORMAL) Magnesium (07/05/2017 8:20 PM EST) P athologist Signature Magnesium 0.68 (L) 0.69 - 1.07 [facility] mmol/L [facility] Specimen Anatomical Collection Method Collection Time Receive d Time (Source) Location / / Volume Laterality Blood specimen 07/05/2017 8:20 PM 017 8:27 (specimen) EST PM EST Resulting Agency Comment Spec In Lab Daphne Shahid MD CHEMISTRY ORDERABLES Performing Organization Address City/State/[place] [address] (ABNORMAL) Basic Metabolic Panel (non-fasting) (07/05/2017 8:20 PM EST) P athologist Signature Glucose Lvl 321 (H) 65 - 199 [facility] mg/dL [facility] Comment: Diabetes: [...] or in patients with acute kidney failure. http://Adpoints.iLive/DHnkdep http://Pikum/DHMCnkf Specimen Anatomical Collection Method Collection Time Receive d Time (Source) Location / / Volume Laterality Blood specimen 07/05/2017 8:20 PM 017 8:27 (specimen) EST PM EST Resulting Agency Comment Spec In Lab Daphne Shahid MD CHEMISTRY ORDERABLES Performing Organization Address City/State/ZIP Code Phon e Sharon [address] (ABNORMAL) POCT Glucose (07/05/2017 7:32 PM EST) P athologist Signature POC Glucose 296 (H) 65 - 199 [facility] mg/dL [facility] Comment: Supplemental ranges: <140 mg/dL before meals <180 mg/dL all other times of the day Specimen Anatomical Collection Method Collection Time Receive d Time (Source) Location / / Volume Laterality Blood specimen 07/05/2017 7:32 PM 017 7:32 (specimen) EST PM EST Daphne Shahid MD POINT OF CARE TEST ORDERABLE S Performing Organization Address City/State/[place] [address] CARDIAC CATHETERIZATION (07/05/2017 6:47 PM EST) Anatomical Region Laterality Modality Other Specimen (Source) Anatomical Location Collection Method / Collectio n Time Received Time / Laterality Volume Narrative 07/05/2017 7:27 PM EST ?[facility] ? Cardiac Cathete rization/Intervention Report ? Patient Name: Natalya, Gregory ? Procedure Date: 07/05/2017 ? A #: [id number] ? Primary Physician: Clarisa, Jet T ? Case #: [id number] ? File Name: [id number] ? Catheterization Order Number: [id number] ? [facility] ? Final Report [place], [place] ? Patient Name: ? Gregory Natalya ?ID#: [id number] ? : ?1945 ? Procedure Date: ? [...] note might be different from the original. [facility] Cardiac Catheterization/Intervention Re port Patient Name: Gregory Hoang Procedure Date: 07/05/2017 A #: [id number] Primary Physician: Jet Mckenna Case #: [id number] File Name: [id number] Catheterization Order Number: [id number] [facility] Final Report [place], [place] Patient Name: Gregory Hoang ID#: [id number] : 1945 Procedure Date: July 05, [...] Mccollum ? (Age): 1945(72y) Med Rec#: ? [id number] ?Sex: ?M ? Site Loc: ? [facility] ?Ht / Wt: ??173(cm)/86(kg) Pt. Loc: ?CCU ? BSA: ?2 Study Date: ?? 07/05/2017 ?Pt. Type: Inpatient Tape: ? Referring: Daphne Shahid ([id number]) Referring: MANDA ALCANTAR Reading: Blade Preston ([id number]) Explosive Ordnance Manager: Dayami Paula BA, [facility] Diagnosis: *ICD-10-PCS Non-ST elevation [...] E-wave Vmax ?0.8 ?m/sec ? MV deceleration [id number] ?msec ? MV A-wave Vmax ?0.8 ?m/sec [...] ? Mid-Inferior ?Akinetic ? Mid-Inferoseptal ?Hypokinetic ? [place]-Septal ? Akinetic ? [place]-Anterior ? Hypokinetic ? [place]-Lateral ?Hypokinetic ? [place]-Inferior ? Akinetic ? [place]-Tip ?Akinetic ? This report has been electronically sign ed by: _ Blade Preston MD ? 07/06/2017 08 :53:15 Images reviewed and interpretation verif ied [facility] Cardiac Ultrasound Laboratory Procedure Note Blade Preston MD - 07/06/2017Formatt ing of this note might be different from the original. Procedure: Transthoracic Echocardiogram Patient: NATALYA MCBRIDE(Age): [birth year]72y) Med Rec#: [id number] Sex: M Site Loc: [facility] Ht / Wt: 173(cm)/86(kg) Pt. Loc: CCU BSA: 2 Study Date: 07/05/2017 Pt. Type: Inpatie nt Tape: Referring: Daphne Shahid ([id number]) Referring: MANDA ALCANTAR Reading: Blade Preston ([id number]) Explosive Ordnance Manager: Dayami Paula BA, [facility] Diagnosis: *ICD-10-PCS Non-ST elevation [...] MV E-wave Vmax 0.8 m/sec MV deceleration [id number] msec MV A-wave Vmax 0.8 m/sec MV [...] Hypokinetic Mid-Posterolateral Hypokinetic Mid-Inferior Akinetic Mid-Inferoseptal Hypokinetic [place]-Septal Akinetic [place]-Anterior Hypokinetic [place]-Lateral Hypokinetic [place]-Inferior Akinetic [place]-Tip Akinetic This report has been electronically sign ed by: _ Blade Preston MD 07/06/2017 08:53:15 Images reviewed and interpretation verif ied [facility] Cardiac Ultrasound Laboratory Daphne Shahid MD ECHO ORDERABLES Differential, Automated (07/05/2017 4:55 PM EST) athologist Signature Neutrophils % 77.0 % [facility] Neutr Abs (ANC) 5.26 1.70 - [facility] 6.10 [facility] x10(3)/[facility] LABORATORY Lymphocytes % 13.3 % [facility] LABOR[facility] Lymphocytes Abs 0.9 0.9 - 3.2 [facility] x10(3)/[facility] LABORATORY Monocytes % 8.2 % [facility] LABORAT[facility] Monocyte Abs 0.6 0.3 - 0.9 [facility] x10(3)/[facility] LABORATORY Eosinophils % 0.7 % [facility] Eosinophils Abs 0.0 0.0 - 0.4 [facility] x10(3)/[facility] LABORATORY Basophils % 0.4 % [facility] LAB[facility] Basophils Abs 0.0 0.0 - 0.1 [facility] x10(3)/[facility] LABORATORY Immature Gran % 0.40 [...] Melisa Gran Abs 0.03 0.00 - 0.04 x10(3)/[facility] MAR Y [facility] LABORATORY Specimen Anatomical Collection Method Collection Time Receive d Time (Source) Location / / Volume Laterality Blood specimen 07/05/2017 4:55 PM 017 5:24 (specimen) EST PM EST Resulting Agency Comment Spec In Lab Daphne Shahid MD HEMATOLOGY ORDERABLES Performing Organization Address City/State/[place] [address] (ABNORMAL) Hemogram (07/05/2017 4:55 PM EST) Analysis Performed At Patho logist Time Signature WBC 6.8 4.0 - 9.5 [facility] x10(3)/[facility] LABORATORY RBC 4.67 4.58 - [facility] 5.54 [facility] x10(6)/[facility] LABORATORY Hemoglobin 14.0 13.7 - [facility] gm/dL [facility] Hematocrit 41.0 40.5 - [facility] 48.5 % [facility] MCV 87.8 82.9 - [facility] 93.1 [facility] LABORATORY MCH 30.0 27.5 - [facility] RYAN 32.1 pg [facility] MCHC 34.1 32.0 - [facility] 35.7 gm/dL [facility] Platelets 197 145 - 357 [facility] x10(3)/[facility] LABORATORY RDWSD 46.4 (H) 36.0 - [facility] 45.0 [facility] LABORATORY RDWCV 14.5 (H) 11.4 - [facility] RYAN 13.8 % [facility] LABORATORY MPV 9.7 7.6 - 12.9 [facility] LABORATORY nRBC % Auto 0.0 % [facility] LABORATORY nRBC Abs Auto 0.000 0.000 - [place] DAVIS 0.000 [facility] x10(3)/[facility] LABORATORY Specimen Anatomical Collection Method Collection Time Receive d Time (Source) Location / / Volume Laterality Blood specimen 07/05/2017 4:55 PM 017 5:24 (specimen) EST PM EST Resulting Agency Comment Spec In Lab Daphne Shahid MD HEMATOLOGY ORDERABLES Performing Organization Address City/State/[place] [address] (ABNORMAL) Cardiac Enzymes (LEB/CGP) [...] additional sample may be indicated. Reference: Third [place] Definition of Myocardial Infarction. Journal of the [place] College [employer] 2012;60:1581-98 CK, Total 191 0 - 200 unit/L [facility] LABORATORY Specimen Anatomical Collection Method Collection Time Receive d Time (Source) Location / / Volume Laterality Blood specimen 07/05/2017 4:55 PM 017 5:56 (specimen) EST PM EST Resulting Agency Comment Spec In Lab Daphne Shahid MD CHEMISTRY ORDERABLES Performing Organization Address City/[facility]/[place] [address] (ABNORMAL) pro-Brain Natriuretic Peptide (07/05/2017 4:55 PM EST) athologist Signature ProBNP 1,598 (H) <=125 [facility] pg/mL [facility] LABOR[facility]ORY Specimen Anatomical Collection Method Collection Time Receive d Time (Source) Location / / Volume Laterality Blood specimen 07/05/2017 4:55 PM 017 5:24 (specimen) EST PM EST Resulting Agency Comment Spec In Lab Daphne Shahid MD CHEMISTRY ORDERABLES Performing Organization Address City/[facility]/ZIP Code Phon e Number [address] Magnesium (07/05/2017 4:55 PM EST) athologist Signature Magnesium 0.78 0.69 - 1.07 [facility] mmol/L [facility] LABORATORY Specimen Anatomical Collection Method Collection Time Receive d Time (Source) Location / / Volume Laterality Blood specimen 07/05/2017 4:55 PM 017 5:24 (specimen) EST PM EST Resulting Agency Comment Spec In Lab Daphne Shahid MD CHEMISTRY ORDERABLES Performing Organization Address City/[facility]/[place] [address] (ABNORMAL) Basic Metabolic Panel (non-fasting) (07/05/2017 4:55 PM EST) athologist Signature Glucose Lvl 230 (H) 65 - 199 [facility] mg/dL [facility] Comment: Diabetes: [...] or in patients with acute kidney failure. [email or web address] [email or web address] Specimen Anatomical Collection Method Collection Time Receive d Time (Source) Location / / Volume Laterality Blood specimen 07/05/2017 4:55 PM 017 5:24 (specimen) EST PM EST Resulting Agency Comment Spec In Lab Daphne Shahid MD CHEMISTRY ORDERABLES Performing Organization Address City/[facility] [facility]/[place] [address] (ABNORMAL) APTT (07/05/2017 4:55 [...] Address City/State/[place] [address] (ABNORMAL) POCT Glucose (07/05/2017 4:53 PM EST) P athologist Signature POC Glucose 208 (H) 65 - 199 [facility] Comment: Supplemental [...] Address City/State/ZIP Code Phon e Number [address] EKG 12 Lead (07/05/2017 4:32 PM EST) Component Value Ref Range Test Analysis Performed Pathologis t Method Time At Signature Ventricular rate 97 BPM MUSE SYSTEM Atrial Rate 97 BPM MUSE SYSTEM P-R Interval 148 ms MUSE SYSTEM QRS Duration 96 ms MUSE SYSTEM Q-T Interval 364 ms MUSE SYSTEM QTC Calculated 462 ms MUSE SYSTEM (Bezet) Calculated P Bonaparte 48 degrees MUSE SYSTEM Calculated R Bonaparte -33 degrees MUSE SYSTEM Calculated T Bonaparte 98 degrees MUSE SYSTEM INTERPRETATION Normal sinus [...] post-op day 1 in the AM Give IA if unable to take PO, Routine Given [...] post-op day 1 in the AM Give IA if unable to take PO, Routine atorvastatin [...] Em Jones, VAMSI)1738 (New Bag - Provider: mE Jones RN) 0143 (New Bag - Provider: [...] packet 17 g 0821 (Given - Provider: Moer Luther RN) 0900 (Not Given - Provider: [...] post-op day 1 in the AM Give IA if unable to take PO
Routine Group [...] documented in this encounter Care Teams Hand Presser Relationship Specialty Start Date End Date Lovely Vicente MD PCP - General 04/16/[address] [place] [address] [address] [place] [address] documented as of this encounter
--- OUTSIDE RECORDS SUMMARY | 2022-05-22 08:25 | XMS_ITS | Encounter Summary ---
:1945 Author Organization [facility] [place] [address] Care Team Providers Name Role Phone Lovely Vicente MD Primary Care Provider Reason for Visit Reason Comments Nevus excision dysplastic nevus mi d upper abdomen Encounter Details Date Type Department Care Team Description 12/03/2016 Procedure visit Dermatology at Halima Dubois Dysplastic nevus of Road MD Adrián trunk [address] [facility] [address] [facility] [phone] [address] [place] [address] Social History Tobacco Use Types Packs/Day Years [...] Halima Cordero MD during the day at [phone] Nurse: Mira [phone] Amy After 5 PM and on weekends, please call the hospital number , and ask for the Software Security Architect regional account executive. documented in this encounter Progress Notes Halima Cordero MD - 12/10/2016 5:41 PM EDT Gwendolyn, Excision shows scar, there is no residual of the severely dysplastic nevus. Please notify patient and check on wound healing. Thank you, DTB Halima Cordero MD - 12/03/2016 3:00 PM EDT Images from the original note were not included. Dermatology Procedure note: Attending: Halima Cordero MD Flame Hardener: Mira James LPN Referring MD: Rigoberto Garcia [...] to call the clinic or the on-call senior account executive over the weekend. ??? Name of Procedure? [...] Appointment Cardiology Zulma Dolan MD [facility] [place], [place] [address] (Wo rk) 05/28/2022 Laboratory Appointment Lab 05/28/2022 Office Visit Cardiology Zulma Dolan MD [facility] [place] [address] Liz Poole PA [facility] [place] [address] 06/10/2022 Office Visit Dermatology Laura Scherer MD [facility] [address] TE[address]DERMAT [place], [place] [address] (Wo rk) documented as [...] Ref Test Analysis Performed At [facility] Method Time Signature Surgical [id number] ?Location: [facility] The signing pathologist has (i) examined [...] Clinical Diagnosis: Dysplastic nevus, see previous pathology [id number] SPECIMEN PROCESSING A - Labeled/Fixative: Mid-upper abdomen, [...] Organization Address City/State/ZIP [place] [address] Specimen to Pathology (NON-OR) (12/03/2016 3:31 PM EDT) Specimen Anatomical Collection Method Collection Time Receive d Time (Source) Location / / Volume Laterality AP Specimen 12/03/2016 3:31 PM 7 6:27 EDT PM EDT Narrative [facility] LAB[facility] - 12/03/2016 6:27 PM EDT Specimen requisition ordered. ??Separate Pathology report to follow Resulting Agency Comment Spec In Lab Halima Cordero MD PATHOLOGY/CYTOLOGY ORDERABLE S Performing Organization Address City/State/ZIP [place] [address] documented in this encounter Visit Diagnoses Diagnosis Dysplastic nevus of trunk Benign neoplasm of skin of trunk, except scrotum documented in this encounter Care Teams High Lift Driver Relationship Specialty Start Date End Date Lovely Vicente MD PCP - General 04/16/[address] [place] [address] documented as of this encounter
--- OUTSIDE RECORDS SUMMARY | 2022-05-22 08:25 | XMS_ITS | Encounter Summary ---
:1945 Author Organization [facility] [place] [address] Care Team Providers Name Role Phone MiyaAngela STACIE Primary Care Provider Encounter Details Date Type Department Care Team Description 04/26/2014 Office Visit Endocrinology at [facility] Albertina Palmer, Papillary thyroid [facility] [place] [address] CENTER [phone] ENDOCRINOLOGY DEPT [place] [address] Social History Tobacco Use Types Packs/Day Years [...] Rosalind Palmer Endocrine Staff Physician [facility] Rosalind Palmer MD - [...] Rosalind Palmer Endocrine Staff Physician [facility] documented in this encounter Plan of Treatment Upcoming Encounters Date Type Specialty Care Team Description 05/28/2022 Appointment Cardiology Zulma Dolan MD [facility] [place], [place] [address] (Wo rk) 05/28/2022 Laboratory Appointment Lab 05/28/2022 Office Visit Cardiology Zulma Dolan MD [facility] [place] [address] Liz Poole PA [facility] [place] [address] 06/10/2022 Office Visit Dermatology Laura Scherer MD [facility] DR TE[address] GR[address]DERMAT [place]LOG[place], [place] [address] (Wo rk) documented as of [...] athologist Signature Thyroglobulin <0.4 <=54.9 CERNER ng/mL [facility] Comment: Interpret with caution. Tg levels [...] BR et al. J Clin Endo Metab 1999;84:6123-6320). Assay performed using the DPC Immulite T [...] Address City/State/ZIP Code Phon e Number [address] CERNER MILLENNIUM (ABNORMAL) TSH (04/26/2014 9:07 AM EDT) P athologist Signature TSH 4.46 (H) 0.27 - 4.20 CERNER mcIU/mL MILLENNIUM Specimen Anatomical Collection Method Collection Time Receive d Time (Source) Location / / Volume Laterality Blood specimen 04/26/2014 9:07 AM 014 9:12 (specimen) EDT AM EDT Resulting Agency Comment Spec In Lab Rosalind Palmer MD CHEMISTRY ORDERABLES Performing Organization Address City/[facility]/ZIP Code Phon e Number [address] CERNER MILLENNIUM documented in this encounter Visit Diagnoses Diagnosis Papillary thyroid carcinoma Malignant neoplasm of thyroid gland documented in this encounter Care Teams Human Resource Analyst Relationship Specialty Start Date End Date Angela Holliday APRN PCP - General 01/25/13 04/15/[address] [place] [address] documented as of this encounter
--- OUTSIDE RECORDS SUMMARY | 2022-05-22 08:25 | XMS_ITS | Encounter Summary ---
:1945 Author Organization [facility] [place] [address] Care Team Providers Name Role Phone Angela Holliday APRN Primary Care Provider Reason for Visit Reason Onset Date Comments Other 03/30/2013 blood in catheter ba g Encounter Details Date Type Department Care Team Description 03/30/2013 Telephone General Surgery at [facility] Janneth Sharma, Other (blood in [facility] RN catheter bag) [place] [address] Social History Tobacco Use Types Packs/Day [...] Zulma Dolan MD [facility] [place], [place] [address] (Wo rk) 05/28/2022 Laboratory Appointment Lab 05/28/2022 Office Visit Cardiology Zulma Dolan MD [facility] [place] [address] Liz Poole PA [facility] [place] [address] 06/10/2022 Office Visit Dermatology Laura Scherer MD [facility] DR TE[address] GR-DERMAT [place], [place] [address] (Wo rk) documented as of this encounter Visit Diagnoses Not on filedocumented in this encounter Care Teams Optimization Engineer Relationship Specialty Start Date End Date Angela Holliday APRN PCP - General 01/25/13 04/15/[address] [place] [address] documented as of this encounter
--- OUTSIDE RECORDS SUMMARY | 2022-05-22 08:25 | XMS_ITS | Encounter Summary ---
:1945 Author Organization [facility] [place] [address] Care Team Providers Name Role Phone MiyaAngela STACIE Primary Care Provider Reason for Visit Reason Comments Urinary Retention Encounter Details Date Type Department Care Team Description 05/16/2013 Follow-Up Urology at [facility] Blade Smith, Retention of urine [facility] (Primary Dx) [place] [address] UROLOGY DEPT [place] [address] (Wo rk) Social History Tobacco Use Types [...] Zulma Dolan MD [facility] [address] [place], [place] [address] (Wo rk) 05/28/2022 Laboratory Appointment Lab 05/28/2022 Office Visit Cardiology Zulma Dolan [place] [address] Liz Poole PA [facility] [place] [address] 06/10/2022 Office Visit Dermatology Laura Scherer MD [facility] DR TE[address] GR[address]DERMAT [place], [place] [address] (Wo rk) documented as of this encounter Visit Diagnoses Diagnosis Retention of urine - Primary Retention of urine, unspecified documented in this encounter Care Teams Editor Department Relationship Specialty Start Date End Date Angela Holliday APRN PCP - General 01/25/13 04/15/[address] [place] [address] documented as of this encounter
--- OUTSIDE RECORDS SUMMARY | 2022-05-22 08:25 | XMS_ITS | Encounter Summary ---
:1945 Author Organization [facility] [place] [address] Care Team Providers Name Role Phone Angela Sotelo APRN Primary Care Provider Encounter Details Date Type Department Care Team Description 01/16/2014 Surgery Gastroenterology at [facility] Nohemi Jaimes, COLONOSCOPY, [facility] Jorge mcnamara MD POLYPECTOMY, [place] [address] [facility] ([facility] [phone] DR Cintron) GASTROENTEROLOGY DEPT. [place], [place] [address] Social History Tobacco Use Types [...] you need to be checked. [facility] [phone] 8a-5p Same Day Endo [phone] 7a-8p Otherwise contact [phone] and ask to speak to the lease out worker welder explosion Follow up care is a shelton part [...] MD - 01/16/2014 9:49 AM EDT [facility] Operative Note Patient Name: Gregory Fatima : [id number] MR#: [id number] Case Date: 01/16/2014 Surgeon: Surgeon(s) and Role: * Nohemi Jaimes MD - Primary Preoperative diagnosis: 5 yr surv. Full procedure note is documented under the Procedure section of eDH. documented in this encounter Plan of Treatment Upcoming Encounters Date Type Specialty Care Team Description 05/28/2022 Appointment Cardiology Zulma Dolan MD [facility] [address] [address] (Wo rk) 05/28/2022 Laboratory Appointment Lab 05/28/2022 Office Visit Cardiology Zulma Dolan MD [facility] [place] [address] Liz Poole PA [facility] [place] [address] 06/10/2022 Office Visit Dermatology Laura Scherer MD [facility] [address] [place] [address] (Wo rk) documented as of this encounter [...] Method Time Signature Surgical CERNER Pathology ? [facility] Report ? Provider: ?? SHREE, NOHEMI Gonzalez ?Pt. Name: ?? MALICKA RT, GREGORY E ? Acc #: ?[id number] ?Pt. MRN: ?[id number] ? Col Date: ?? 4 ? /Sex: [...] City/State/ZIP Code Phon e Number [place] [id number] LAB[address] RAKESH WALKER Specimen to [...] [facility]/[place] [address] CERNER MILLENNIUM Specimen to [...] S Performing Organization Address [facility] [place] [address] CERNER MILLENNIUM COLONOSCOPY (01/16/2014 7:25 AM EDT) [facility] Method Time Signature COLONOSCOPY [facility] PROVATION Endoscopy Patient Name: Gregory Fatima ? Procedure Date: 01/16/2014 7:25 AM ? N: [id number] ? Date of : 1945 ? Age: 68 ? Order #: [id number] ? Procedure: ? Colonoscopy Indications: ? High [...] Laterality 01/16/2014 7:25 AM EDT Angela Sotelo MOLDED GOODS EMBOSSING PRESS OPERATOR GENERAL SURGICAL ORDERABLES Performing Organization Address [...] Routine documented in this encounter Care Teams Tank Car Inspector Relationship Specialty Start Date End Date Angela Sotelo APRN PCP - General 01/25/13 04/15/15 [address] [place] [address] documented as of this encounter
--- OUTSIDE RECORDS SUMMARY | 2022-05-22 08:25 | XMS_ITS | Encounter Summary ---
:1945 Author Organization [facility] [place] [address] Care Team Providers Name Role Phone MiyaLokeshAngela STACIE Primary Care Provider Encounter Details Date Type Department Care Team Description 01/16/2014 Hospital Encounter Gastroenterology at [facility] Nohemi Swann, [facility] [place] [address] [facility] [phone] [facility] GASTROENTEROLOGY DEPT. [place], [place] [address] Social History Tobacco Use [...] you need to be checked. Wednesday[facility]Wednesday Clinic [phone] 8a-5p Same Day Endo [phone] 7a-8p Otherwise contact [phone] and ask to speak to the construction supervisor/carpenter flight surgeon Follow up care is a shelton [...] Operative Note Patient Name: Gregory Fatima : [id number] MR#: [id number] Case Date: 01/16/2014 Surgeon: Surgeon(s) and Role: * Nohemi Swann MD - Primary Preoperative diagnosis: 5 yr surv. Full procedure note is documented under the Procedure section of eDH. documented in this encounter Plan of Treatment Upcoming Encounters Date Type Specialty Care Team Description 05/28/2022 Appointment Cardiology Zulma Dolan MD [facility] [address] [place], [place] [address] (Wo rk) 05/28/2022 Laboratory Appointment Lab 05/28/2022 Office Visit Cardiology Zulma Dolan MD [facility] [place] [address] Liz Poole PA [facility] [place] [address] 06/10/2022 Office Visit Dermatology Laura Scherer MD [facility] [address] TE[address] GR[place], [place] [address] (Wo rk) documented as of this encounter [...] Surgical Pathology Report (01/16/2014 9:53 AM EDT) [facility] Method Time Signature Surgical CERNER Pathology ? [facility] Report ? Provider: ?? NOHEMI SWANN ?Pt. Name: ?? MALICKEliseo RT, GREGORY E ? Acc #: ?[id number] ?Pt. MRN: ?[id number] ? Col Date: ?? 4 ? /Sex: [...] City/State/ZIP Code Phon e Number [place] [phone] LAB[address] RAKESH WALKER Specimen to [...] Organization Address City/State/[place] Code [place] [address] [facility] Specimen to Pathology (surgical or [...] MD PATHOLOGY/CYTOLOGY ORDERABLE S Performing Organization Address City/[facility]/[place] [address] CERNER MILLENNIUM COLONOSCOPY (01/16/2014 7:25 AM EDT) [facility] gist Method Time Signature COLONOSCOPY [facility] PROVATION Endoscopy Patient Name: Gregory Fatima ? Procedure Date: 01/16/2014 7:25 AM ? N: [id number] ? Date of : 1945 ? Age: 68 ? Order #: [id number] ? Procedure: ? Colonoscopy Indications: ? High risk colon cancer surveillance : ? 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 dm on metformin with bs ~ 110 this ? am,s/p melanoma years ago, os a, ? goiter s/p surgery, [facility] Providers: ? Nohemi Swann MD, Blanca [...] Laterality 01/16/2014 7:25 AM EDT Angela Sotelo FORDER OPERATOR GENERAL SURGICAL ORDERABLES Performing Organization Address [...] documented in this encounter Care Teams Optical Effects Camera Operator Relationship Specialty Start Date End Date Angela Sotelo APRN PCP - General 01/25/13 04/15/[address] [place] [address] documented as of this encounter
--- OUTSIDE RECORDS SUMMARY | 2022-05-22 08:25 | XMS_ITS | Encounter Summary ---
:1945 Author Organization [facility] [place] [address] Care Team Providers Name Role Phone Som Holliday APRN Primary Care Provider Encounter Details Date Type Department Care Team Description 04/11/2014 Procedure visit Gastroenterology at [facility], CONV Esophageal reflux [facility] Luz Winchester RN (Primary Dx) [place] [address] Social History Tobacco Use Types Packs/Day Years Used Date Former Smoker Alcohol Use Standard Drinks/Week Comments No 0 (1 standard drink = 0.6 oz pure alcoho l) Sex Assigned at Date Recorded Not on file documented as of this encounter Progress Notes Adalid Can MD - 04/13/2014 3:43 PM EDT ESOPHAGEAL MANOMETRY Don Fatima Male, 69 yrs, 1945 PCP: SOM HOLLIDAY [place]NER: NONE STUDY DATE: 04/11/14 PROVIDER: Adalid [place], [place] ([id number]) INDICATION Reflux; preoperative evaluation. METHODS Stationary esophageal manometry was performed with the Limbo esophageal motility system utilizing the Polygram software [...] of the esophagus. Adalid Can, PhD, MD food processing plant manager, [facility] [employer] Section of Gastroenterology and Hepatology [facility] [place] [address] V: [phone] F: [phone] [facility]/gabriela CC/EC: PCP - staff msg copy 04/13/14 Henrique Taylor MD - fax copy 04/13/14 Luz Keller RN - 04/11/2014 8:14 AM EDT Esophageal manometry performed without difficulty and Was well tolerated. documented in this encounter Plan of Treatment Upcoming Encounters Date Type Specialty Care Team Description 05/28/2022 Appointment Cardiology Zulma Dolan MD [facility] [place] [address] (Wo rk) 05/28/2022 Laboratory Appointment Lab 05/28/2022 Office Visit Cardiology Zulma Dolan MD [facility] [place] [address] Liz Poole PA [facility] [place] [address] 06/10/2022 Office Visit Dermatology Laura Scherer MD [facility] [address] TEJA GR[address]MAT [place], [place] [address] (Wo rk) documented as of this encounter Visit Diagnoses Diagnosis Esophageal reflux - Primary documented in this encounter Care Teams Airframe And Powerplant Technician Relationship Specialty Start Date End Date Som Holliday APRN PCP - General 01/25/13 04/15/[address] [place] [address] documented as of this encounter
--- OUTSIDE RECORDS SUMMARY | 2022-05-22 08:25 | XMS_ITS | Encounter Summary ---
:1945 Author Organization [facility] [place] [address] Care Team Providers Name Role Phone MiyaAngela STACIE Primary Care Provider Reason for Visit Reason Comments Post Op voiding trial Encounter Details Date Type Department Care Team Description 04/05/2013 Office [address] [facility]rology at [facility] Darryl Egan, UTI ([facility] MD tract infection) [facility] (Primary Dx) [place] [address] UROLOGY DEPT [phone] [place], [place] [address] Social History Tobacco Use Types [...] Cardiology Zulma Dolan MD [facility] [place], [place] [address] (Wo rk) 05/28/2022 Laboratory Appointment Lab 05/28/2022 Office Visit Cardiology Zulma Dolan MD [facility] [address] Liz Poole PA [facility] [place] [address] 06/10/2022 Office Visit Dermatology Laura Scherer MD [facility] [address] T[address] GR-DERMAT [place], [place] [address] (Wo rk) [...] At [facility] Method Time Signature Urine Culture CERNER ? Patient Name: GREGORY HOANG ? Ordered By: DARRYL EGAN [facility] ? MR#: [id number] ?LOC: ??5B ? /Sex: ??1945 (68 years), [...] S ? Patient: GREGORY HOANG ? MR#: [id number] ? FOOTNOTES ? (1) ? This organism [...] Organization Address City/State/[place] [address] RAKESH WALKER documented in this encounter Visit Diagnoses Diagnosis UTI (lower urinary tract infection) - Pr imary Urinary tract infection, site not specif ied documented in this encounter Care Teams Facilities Flight Check Pilot Relationship Specialty Start Date End Date Angela Holliday APRN PCP - General 01/25/13 04/15/[address] [place] [address] documented as of this encounter
--- OUTSIDE RECORDS SUMMARY | 2022-05-22 08:25 | XMS_ITS | Encounter Summary ---
:1945 Author Organization [facility] [address] Care Team Providers Name Role Phone Angela Holliday STACIE Primary Care Provider Encounter Details Date Type Department Care Team Description 04/04/2013 Telephone Urology at [facility] Parker Sanchez MD [facility] [place] [address] UROLOGY DEPT [phone] [place], [place] [address] (Wo rk) Social History Tobacco [...] Dolan MD [facility] [place] [address] (Wo rk) 05/28/2022 Laboratory Appointment Lab 05/28/2022 Office Visit Cardiology Zulma Dolan MD [facility] [place] [address] Liz Poole PA [facility] [place] [address] 06/10/2022 Office Visit Dermatology Laura Scherer MD [facility] DR [address] GR[address]DERMAT [place], [place] [address] (Wo rk) documented as of this encounter Visit Diagnoses Not on filedocumented in this encounter Care Teams First Assistant Relationship Specialty Start Date End Date Angela Holliday APRN PCP - General 01/25/13 04/15/[address] [place] [address] documented as of this encounter
--- OUTSIDE RECORDS SUMMARY | 2022-05-22 08:25 | XMS_ITS | Encounter Summary ---
:1945 Author Organization [facility] [place] [address] Care Team Providers Name Role Phone Lovely Vicente MD Primary Care Provider Reason for Visit Reason Comments Skin Check Encounter Details Date Type Department Care Team Description 06/05/2016 Office Visit Dermatology at [facility] ist[facility] of melanoma; Abdelrahman HOOPER MD Seborrheic keratosis; [address] [facility] [place] (actinic keratosis); [place] [address] Multiple nevi; [phone] [facility] [address] [place], [place] [address] Social History Tobacco Use Types [...] Zulma Dolan MD [facility] [place], [place] [address] (Wo rk) 05/28/2022 Laboratory Appointment Lab 05/28/2022 Office Visit Cardiology Zulma Dolan MD [facility] [place] [address] Liz Poole PA [facility] [place] [address] 06/10/2022 Office Visit Dermatology Laura Scherer MD [facility] [address] TE[address] GR-DERMAT [place], [place] [address] (Wo rk) documented as of this encounter Visit Diagnoses Diagnosis History of melanoma Personal history of malignant melanoma o f skin Seborrheic keratosis Other seborrheic keratosis [place] (actinic keratosis) Actinic keratosis Multiple nevi Benign neoplasm of skin, site unspecifie d Scar Scar condition and fibrosis of skin documented in this encounter Care Teams Insurance Claims Representative Relationship Specialty Start Date End Date Lovely Vicente MD PCP - General 04/16/[address] [place] [address] documented as of this encounter
--- OUTSIDE RECORDS SUMMARY | 2022-05-22 08:25 | XMS_ITS | Encounter Summary ---
:1945 Author Organization [facility] [place] [address] Care Team Providers Name Role Phone MiyaAngela STACIE Primary Care Provider Reason for Visit Reason Onset Date Comments Advice Only 03/31/2013 Encounter Details Date Type Department Care Team Description 03/31/2013 Telephone Urology at [facility] Daniele Trejo III, MD Advice Only One [facility] [place] [id number] [place] [id number] [phone] (Wo rk) Social History Tobacco Use Types [...] Description 05/28/2022 Appointment Cardiology uZlma Dolan MD [facility] [place], [place] [address] (Wo rk) 05/28/2022 Laboratory Appointment Lab 05/28/2022 Office Visit Cardiology Zulma Dolan MD [facility] [place] [address] Liz Poole PA [facility] [place] [address] 06/10/2022 Office Visit Dermatology Laura Scherer MD [facility] [address] TE[address]-DERMAT [place], [place] [address] (Wo rk) documented as of this encounter Visit Diagnoses Not on filedocumented in this encounter Care Teams Manager Behavior Relationship Specialty Start Date End Date Angela Holliday APRN PCP - General 01/25/13 04/15/[address] [place] [address] documented as of this encounter
--- OUTSIDE RECORDS SUMMARY | 2022-05-22 08:25 | XMS_ITS | Encounter Summary ---
:1945 Author Organization [facility] [place] [address] Care Team Providers Name Role Phone Lovely Vicente MD Primary Care Provider Reason for Visit Reason Comments Follow-up Encounter Details Date Type Department Care Team Description 06/03/2017 Office Visit Dermatology at Rigoberto Forman benign nevi; Abdelrahman HOOPER MD History of melanoma; [address] [facility] History of dysplastic nevus; [place] [address] Skin exam for malignant neoplasm [phone] [facility] [place], [place] [address] Social History Tobacco Use [...] Zulma Dolan MD [facility] [place], [place] 0[address] (Wo rk) 05/28/2022 Laboratory Appointment Lab 05/28/2022 Office Visit Cardiology Zulma Dolan MD [facility] [place] [address] [facility] [place] [address] 06/10/2022 Office Visit Dermatology Laura Scherer MD [facility] [address]DERMAT [place], [place] 0[address] (Wo rk) documented as of [...] skin documented in this encounter Care Teams Jack Frame Tender Relationship Specialty Start Date End Date Lovely Vicente MD PCP - General 04/16/15 [employer] [address] [place] [address] documented as of this encounter
--- OUTSIDE RECORDS SUMMARY | 2022-05-22 08:25 | XMS_ITS | Encounter Summary ---
:1945 Author Organization [facility] [place] [address] Care Team Providers Name Role Phone Lovely Vicente MD Primary Care Provider Encounter Details Date Type Department Care Team Description 09/03/2016 Office Visit Endocrinology at [facility] Maria Ines Stallings of [facility] [place] [address] [place] [address] ENDOCRINOLOGY DEPT [place], [place] 0[address] Social History Tobacco Use Types [...] to his magnesium pill. LUZ PRESCOTT MD [place] Tendercustomer experience consultant Section of Endocrinology [facility] Luz Prescott MD - 09/03/2016 11:30 AM [...] sonographic evidence of recurrence. LUZ PRESCOTT MD [place] Tendercustomer experience consultant Section of Endocrinology [facility] documented in this encounter Plan of Treatment Upcoming Encounters Date Type Specialty Care Team Description 05/28/2022 Appointment Cardiology Zulma Dolan MD [facility] [address] [place], [place] [address] (Wo rk) 05/28/2022 Laboratory Appointment Lab 05/28/2022 Office Visit Cardiology Zulma Dolan MD [facility] [place] [address] Liz Poole PA [facility] [place] [address] 06/10/2022 Office Visit Dermatology Laura Scherer MD [facility] DR [address]DERMAT [place], [place] [address] (Wo rk) documented as of this encounter Results Thyroglobulin (09/07/2017 2:41 PM EST) P athologist Signature Thyroglobulin 1.4 <=54.9 KATALINA RYAN ng/mL [facility] Comment: Thyroglobulin levels may [...] not been established. Assay performed using the Lab21 Immulite T g immunometric assay (lowest detection limit is <0.4 ng/ml). Thyroglob Ab <20.0 0.0 - 40.0 IU/mL [facility] Comment: Assay performed is the [...] [facility]/ZIP Code Phon e Number [address] TSH (09/07/2017 2:41 PM EST) athologist Signature TSH 3.93 0.27 - 4.20 [facility] mlU/ML [facility] Specimen Anatomical Collection Method Collection Time Receive d Time (Source) Location / / Volume Laterality Blood specimen 09/07/2017 2:41 PM 018 2:46 (specimen) EST PM EST Resulting Agency Comment Spec In Lab Luz Prescott MD CHEMISTRY ORDERABLES Performing Organization Address City/[facility] Phon e Number [address] Thyroglobulin (09/03/2016 11:07 AM EST) athologist Signature Thyroglobulin <0.4 <=54.9 [facility] ng/mL [facility] Comment: Interpret with caution. Tg levels may be unreliable and falsely low in TgAb positive samples (TgAb <20 is consistent with TgAb negativity). Serial TgAb measurements may be valuable as a surrog ate tumor marker test and should be considered (Mua SHARIF and [place] PAS[place]AL Thy roid 2003;13:1-126) [...] than those obtained with T4 withdrawal protocol ([place] BR et al. J Clin Endo Metab 1999;84:1475-7600). Assay performed using the DPC Immulite T g immunometric assay. (lowest detection limit is <0.4 ng/ml). Thyroglob Ab <20.0 0.0 - 40.0 IU/mL [facility] Comment: Assay performed is the [...] [facility] [place]/ZIP Code Phon e Number [address] TSH (09/03/2016 11:07 AM EST) P athologist Signature TSH 3.01 0.27 - 4.20 [facility] mcIU/mL [facility] Specimen Anatomical Collection Method Collection Time Receive d Time (Source) Location / / Volume Laterality Blood specimen 09/03/2016 11:07 7 (specimen) AM EST 11:22 AM EST Resulting Agency Comment Spec In Lab Luz Prescott MD CHEMISTRY ORDERABLES Performing Organization Address City/[facility]/[place] [address] documented in this encounter Visit Diagnoses Diagnosis Hx of papillary thyroid carcinoma Personal history of malignant neoplasm o f thyroid documented in this encounter Care Teams Curber Relationship Specialty Start Date End Date Lovely Vicente MD PCP - General 04/16/[address] [place] [address] documented as of this encounter
--- OUTSIDE RECORDS SUMMARY | 2022-05-22 08:25 | XMS_ITS | Encounter Summary ---
:1945 Author Organization [facility] [place] [address] Care Team Providers Name Role Phone Miya Angela STACIE Primary Care Provider Encounter Details Date Type Department Care Team Description 04/24/2013 Telephone Urology at [facility] Zhen Bowman MD [facility] [place] [address] UROLOGY DEPT [phone] [place], [place] [address] (Wo rk) Social History Tobacco [...] Zulma Dolan MD [facility] [place], [place] [address] (Wo rk) 05/28/2022 Laboratory Appointment Lab 05/28/2022 Office Visit Cardiology Zulma Dolan MD [facility] [place] [address] Liz Poole PA [facility] [place] [address] 06/10/2022 Office Visit Dermatology Laura Scherer MD [facility] [address] [place], [place] [address] (Wo rk) documented as of this encounter Visit Diagnoses Not on filedocumented in this encounter Care Teams Soiled Linen Distributor Relationship Specialty Start Date End Date Angela Holliday APRN PCP - General 01/25/13 04/15/[address] [place] [address] documented as of this encounter
--- OUTSIDE RECORDS SUMMARY | 2022-05-22 08:25 | XMS_ITS | Encounter Summary ---
:1945 Author Organization [facility] [place] [address] Care Team Providers Name Role Phone MiyaAngela STACIE Primary Care Provider Encounter Details Date Type Department Care Team Description 11/27/2013 Orders Only Urology at [facility] Blade Smith, Urinary retention [facility] (Primary Dx) [place] [address] UROLOGY DEPT [place], [place] 0[address] Social History Tobacco Use Types [...] Dolan MD [facility] er [place], [place] [address] (Wo rk) 05/28/2022 Laboratory Appointment Lab 05/28/2022 Office Visit Cardiology Zulma Dloan MD [facility] [place] [address] Liz Poole PA [facility] [place] [address] 06/10/2022 Office Visit Dermatology Laura Scherer MD [facility] ER DR [address]DERMAT [place], [place] [address] (Wo rk) documented as [...] Organization Address City/State/[place] [address] CERNER MILLENNIUM documented in this encounter Visit Diagnoses Diagnosis Urinary retention - Primary Retention of urine, unspecified documented in this encounter Care Teams Electrical Maintenance Mechanic Relationship Specialty Start Date End Date Angela Holliday APRN PCP - General 01/25/13 04/15/[address] [place] [address] documented as of this encounter
--- OUTSIDE RECORDS SUMMARY | 2022-05-22 08:25 | XMS_ITS | Encounter Summary ---
:1945 Author Organization [facility] [place] [address] Care Team Providers Name Role Phone MiyaLokeshAngela STACIE Primary Care Provider Encounter Details Date Type Department Care Team Description 04/04/2013 Orders Only General Surgery at Manny Mcknight thyroid [facility] MD Eliseo carcinoma (Primary Dx) [facility] [place] [address] GENERAL SURGERY [phone] [place], [place] 0[address] Social History Tobacco [...] MD [facility] er [place], [place] [address] (Wo rk) 05/28/2022 Laboratory Appointment Lab 05/28/2022 Office Visit Cardiology Zulma Dolan MD [facility] [place] [address] Liz Poole PA [facility] [place] [address] 06/10/2022 Office Visit Dermatology Laura Scherer MD [facility] DR [address] [place], [place] [address] (Wo rk) documented as of this encounter Visit Diagnoses Diagnosis Papillary thyroid carcinoma - Primary Malignant neoplasm of thyroid gland documented in this encounter Care Teams Assistant Women'S Soccer Coach Relationship Specialty Start Date End Date Angela Holliday APRN PCP - General 01/25/13 04/15/[address] [place] [address] documented as of this encounter
--- OUTSIDE RECORDS SUMMARY | 2022-05-22 08:25 | XMS_ITS | Encounter Summary ---
:1945 Author Organization [facility] [place] [address] Care Team Providers Name Role Phone Angela Holliday APRN Primary Care Provider Reason for Visit Reason Comments Skin Check Encounter Details Date Type Department Care Team Description 07/31/2013 Follow-Up Dermatology at [facility]to Forman eoplasm of unspecified nature of bone, soft tissue, and skin (Primary Dx); Abdelrahman HOOPER MD Seborrheic psoriasis- scalp and ingtergl uteal area; [address] [facility] Atypical [place] [address] [facility] [place], [place] 0[address] (Wo rk) Social [...] encounter. Rigoberto Albarran MD Section of Dermatology [facility] documented in this encounter Plan of Treatment Upcoming Encounters Date Type Specialty Care Team Description 05/28/2022 Appointment Cardiology Zulma Dolan MD [facility] [address] [place] [address] (Wo lissa) 05/28/2022 Laboratory Appointment Lab 05/28/2022 Office Visit Cardiology Zulma Dolan MD [facility] [place] [address] Liz Poole PA [facility] [place] [address] 06/10/2022 Office Visit Dermatology Laura Scherer MD [facility] DR [address] [place], [place] [address] (Wo rk) Scheduled Orders Name [...] Value Ref Test Analysis Performed At [facility] Range Method Time Signature Surgical CERNER Pathology ? [facility] Report ? Provider: ?? RIGOBERTO ALBARRAN III Pt. Name: ?? GREGORY HOANG ?A ? Acc #: ?[id number] ? Pt. ? Col Date: ?? 07/31/2013 [...] 0.9 x 0.8 x 0.2 cm. ? [facility] ? Provider: ?? DEION III, RIGOBERTO Pt. Name: ?? GREGORY HOANG ?A ? Acc #: ?[id number] ? Pt. ? Col Date: ?? 07/31/2013 [...] City/[facility]/ZIP Code Phon e Number [address] CERNER MILLENNIUM Specimen [...] City/[facility]/[place] [address] CERNER MILLENNIUM documented in this encounter Visit Diagnoses Diagnosis Neoplasm of unspecified nature of bone, soft tissue, and skin - Primary Seborrheic psoriasis- scalp and ingtergl uteal area Other psoriasis Atypical nevus of abdominal wall Benign neoplasm of skin of trunk, except scrotum documented in this encounter Care Teams Terrazzo Mechanic Relationship Specialty Start Date End Date Angela Holliday APRN PCP - General 01/25/13 04/15/[address] [place] [address] documented as of this encounter
--- OUTSIDE RECORDS SUMMARY | 2022-05-22 08:25 | XMS_ITS | Encounter Summary ---
:1945 Author Organization [place] [address] Care Team Providers Name Role Phone Angela Holliday APRN Primary Care Provider Reason for Visit Reason Comments Benign Prostatic Hypertrophy Encounter Details Date Type Department Care Team Description 11/28/2013 Follow-Up Urology at [facility] Blade Smith, Urinary retention (Primary D x); [facility] BPH (benign prostatic hyperplasia) [place] [address] UROLOGY DEPT [place], [place] [address] (Wo rk) Social History Tobacco [...] Cardiology Zulma Dolan MD [facility] [address] [place], [place] [address] (Wo rk) 05/28/2022 Laboratory Appointment Lab 05/28/2022 Office Visit Cardiology Zulma Dolan MD [facility] [place] [address] Liz Poole PA [facility] [place] [address] 06/10/2022 Office Visit Dermatology Laura Scherer MD [facility] DR [address] [place], [place] [address] (Wo [...] Address City/State/[place] [address] CERNER MILLENNIUM documented in this encounter Visit Diagnoses Diagnosis Urinary retention - Primary Retention of urine, unspecified BPH (benign prostatic hyperplasia) Unspecified hyperplasia of prostate with out urinary obstruction and other lower urinary tract symptoms (LUTS) documented in this encounter Care Teams Mathematical Physicist Relationship Specialty Start Date End Date Angela Holliday APRN PCP - General 01/25/13 04/15/[address] [place] [address] documented as of this encounter
--- OUTSIDE RECORDS SUMMARY | 2022-05-22 08:25 | XMS_ITS | Encounter Summary ---
:1945 Author Organization [facility] [place] [address] Care Team Providers Name Role Phone Angela Holliday APRN Primary Care Provider Encounter Details Date Type Department Care Team Description 03/30/2013 Telephone General Surgery at [facility] Cliff Nevarez, [place] [address] Social History Tobacco Use Types Packs/Day [...] Zulma Dolan MD [facility] er [place], [place] [address] (Wo rk) 05/28/2022 Laboratory Appointment Lab 05/28/2022 Office Visit Cardiology Zulma Dolan MD [facility] [place] [address] Liz Poole PA [facility] [place] [address] 06/10/2022 Office Visit Dermatology Laura Scherer MD [facility] [address] [place], [place] [address] (Wo rk) documented as of this encounter Visit Diagnoses Not on filedocumented in this encounter Care Teams Director Of Field Coordination Relationship Specialty Start Date End Date Angela Holliday APRN PCP - General 01/25/13 04/15/[address] [place] [address] documented as of this encounter
--- OUTSIDE RECORDS SUMMARY | 2022-05-22 08:25 | XMS_ITS | Encounter Summary ---
:1945 Author Organization [facility] [place] [address] Care Team Providers Name Role Phone Angela Holliday APRN Primary Care Provider Reason for Visit Reason Comments Other Encounter Details Date Type Department Care Team Description 08/01/2013 Telephone Dermatology at [facility] Rigoberto Garcia III, [address] [place] [address] [facility] [phone] TE[address] MARIE-DERMAT [place], [place] [address] (Wo rk) Social History Tobacco [...] III Pt. Name: DON HOANG Acc #: [id number] Pt. Col Date: 07/31/2013 /Sex: 1945,(68 years),Male Rec Date: 07/31/2013 LOC: [facility] SURGICAL PATHOLOGY ---Pathologic Diagnosis--- Skin, right [...] Zulma Dolan MD [facility] [place], [place] [address] (Wo lissa) 05/28/2022 Laboratory Appointment Lab 05/28/2022 Office Visit Cardiology Zulma Dolan MD [facility] [place] [address] Liz Poole PA [facility] [place] [address] 06/10/2022 Office Visit Dermatology Laura Scherer MD [facility] DR TEJA MARIE-DERMAT [place], [place] [address] (Wo rk) documented as of this encounter Visit Diagnoses Not on filedocumented in this encounter Care Teams Shearer Printed Circuit Boards Relationship Specialty Start Date End Date Angela Holliday APRN PCP - General 01/25/13 04/15/[address] [place] [address] documented as of this encounter
--- OUTSIDE RECORDS SUMMARY | 2022-05-22 08:25 | XMS_ITS | Encounter Summary ---
:1945 Author Organization [facility] [place] [address] Care Team Providers Name Role Phone Lovely Vicente MD Primary Care Provider Encounter Details Date Type Department Care Team Description 07/10/2016 Telephone Dermatology at [facility] Rigoberto White III, [address] [place] [address] [facility] [phone] [facility] [place], [place] [address] (Wo rk) Social History [...] Dolan MD [facility] [place], [place] [address] (Wo rk) 05/28/2022 Laboratory Appointment Lab 05/28/2022 Office Visit Cardiology Zulma Dolan MD [facility] [place] [address] [facility] [place] [address] 06/10/2022 Office Visit Dermatology Laura Scherer MD [facility] DR TEJA MARIE-DERMAT [place], [place] [address] (Wo rk) documented as of this encounter Visit Diagnoses Not on filedocumented in this encounter Care Teams Transcript Clerk Relationship Specialty Start Date End Date Lovely Vicente MD PCP - General 04/16/15 [facility] [address] [place] [address] documented as of this encounter
--- OUTSIDE RECORDS SUMMARY | 2022-05-22 08:25 | XMS_ITS | Encounter Summary ---
:1945 Author Organization [facility] [place] [address] Care Team Providers Name Role Phone Angela Holliday APRN Primary Care Provider Encounter Details Date Type Department Care Team Description 04/30/2014 Orders Only Endocrinology at [facility] Albertina Palmer, Thyroid cancer [facility] Jorge Boyer MD (Primary Dx) [place] [address] [facility] [phone] CENTER ENDOCRINOLOGY DEPT [place], [place] [address] Social History Tobacco Use [...] Zulma Dolan MD [facility] er Dr [place], [place] [address] (Wo rk) 05/28/2022 Laboratory Appointment Lab 05/28/2022 Office Visit Cardiology Zulma Dolan MD [facility] [place] [address] Liz Poole PA [facility] [place] [address] 06/10/2022 Office Visit Dermatology Laura Scherer MD [facility] ER DR TE[address] GR-DERMAT [place], [place] [address] (Wo rk) documented as of this encounter Visit Diagnoses Diagnosis Thyroid cancer - Primary Malignant neoplasm of thyroid gland documented in this encounter Care Teams Informaticist Relationship Specialty Start Date End Date Angela Holliday APRN PCP - General 01/25/13 04/15/[address] [place] [address] documented as of this encounter
--- OUTSIDE RECORDS SUMMARY | 2022-05-22 08:25 | XMS_ITS | Encounter Summary ---
:1945 Author Organization [facility] [place] [address] Care Team Providers Name Role Phone MiyaLokeshAngela STACIE Primary Care Provider Reason for Visit Reason Onset Date Comments Post-op Problem 04/05/2013 voiding trial Encounter Details Date Type Department Care Team Description 04/05/2013 Telephone Urology at [facility] Blade Smith, Post-op Problem [facility] (voiding trial) [place] [address] UROLOGY DEPT [place] [address] (Wo rk) Social History Tobacco Use Types [...] Cardiology Zulma Dolan MD [facility] [place], [place] [address] (Wo rk) 05/28/2022 Laboratory Appointment Lab 05/28/2022 Office Visit Cardiology Zulma Dolan MD [facility] [place] [address] Liz Poole PA [facility] [place] [address] 06/10/2022 Office Visit Dermatology Laura Scherer MD [facility] DR [address]-DER[address] [place], [place] [address] (Wo rk) documented as of this encounter Visit Diagnoses Not on filedocumented in this encounter Care Teams Mortgage Branch Manager Relationship Specialty Start Date End Date Angela Holliday APRN PCP - General 01/25/13 04/15/[address] [place] [address] documented as of this encounter
--- OUTSIDE RECORDS SUMMARY | 2022-05-22 08:25 | XMS_ITS | Encounter Summary ---
:1945 Author Organization [facility] [place] [address] Care Team Providers Name Role Phone Lovely Vicente MD Primary Care Provider Encounter Details Date Type Department Care Team Description 11/28/2016 Telephone Dermatology at [facility] Rigoberto Garcia III, [address] [place] [address] [facility] [phone] [facility] SIMÓN-DERMAT [place], [place] [address] (Wo rk) Social History Tobacco [...] provider. Rigoberto Garcia MD Section of Dermatology [facility] documented in this encounter Plan of Treatment Upcoming Encounters Date Type Specialty Care Team Description 05/28/2022 Appointment Cardiology Zulma Dolan MD [facility] [place], [place] [address] (Wo rk) 05/28/2022 Laboratory Appointment Lab 05/28/2022 Office Visit Cardiology Zulma Dolan MD [facility] [place] [address] Liz Poole PA [facility] [place] [address] 06/10/2022 Office Visit Dermatology Larua Scherer MD [facility] DR TEJA MARIE-DERMAT [place], [place] [address] (Wo rk) documented as of this encounter Visit Diagnoses Not on filedocumented in this encounter Care Teams Software Engineer Web Services Relationship Specialty Start Date End Date Lovely Vicente MD PCP - General 04/16/[address] [place] [address] documented as of this encounter
--- OUTSIDE RECORDS SUMMARY | 2022-05-22 08:25 | XMS_ITS | Encounter Summary ---
:1945 Author Organization [facility] [address] Care Team Providers Name Role Phone Lovely Vicente MD Primary Care Provider Reason for Visit Reason Onset Date Comments Referral 10/30/2015 Urgent referral for mac on [address] Encounter Details Date Type Department Care Team Description 10/30/2015 Telephone Ophthalmology at [facility] C Jayson Ruiz Referral (Urgent [facility] MD Grabiel referral for mac on [facility] [address] [place]) [place] [address] OPHTHALMOLOGY DEPT. [phone] [place], [place] [address] (Wo rk) Social History Tobacco [...] Zulma Dolan MD [facility] [address] [place], [place] [address] (Wo rk) 05/28/2022 Laboratory Appointment Lab 05/28/2022 Office Visit Cardiology Zulma Dolan MD [facility] [place] [address] Liz Poole PA [facility] [place] [address] 06/10/2022 Office Visit Dermatology Laura Scherer MD [facility] DR [address]DERMAT [place], [place] [address] (Wo rk) documented as of this encounter Visit Diagnoses Not on filedocumented in this encounter Care Teams Digital Imaging Technician Relationship Specialty Start Date End Date Lovely Vicente MD PCP - General 04/16/[address] [place], [place] [address] documented as of this encounter
--- OUTSIDE RECORDS SUMMARY | 2022-05-22 08:25 | XMS_ITS | Encounter Summary ---
:1945 [place] [address] Care Team Providers Name Role Phone Lovely Vicente MD Primary Care Provider Reason for Visit Reason Onset Date Comments Other 12/09/2016 RESULTS Encounter Details Date Type Department Care Team Description 12/09/2016 Telephone Dermatology at [facility] Halima Cadet MD Other (RESULTS) [address] [facility] [place] [address] [facility] [phone] [place], [place] [address] (Wo rk) Social History [...] Spoke with patient's , Kisha (personal insurance representative). I advised her Don's pathology results [...] back. She can be reached back at [phone] documented in this encounter Plan of Treatment Upcoming Encounters Date Type Specialty Care Team Description 05/28/2022 Appointment Cardiology Zulma Dolan MD [facility] [address] [place], [place] [address] (Wo rk) 05/28/2022 Laboratory Appointment Lab 05/28/2022 Office Visit Cardiology Zulma Dolan MD [facility] [place] [address] Liz Poole PA [facility] [place] [address] 06/10/2022 Office Visit Dermatology Laura Scherer MD [facility] [address] [place], [place] [address] (Wo rk) documented as of this encounter Visit Diagnoses Not on filedocumented in this encounter Care Teams Senior Editor Relationship Specialty Start Date End Date Lovely Vicente MD PCP - General 04/16/[address] [place] [address] documented as of this encounter
--- OUTSIDE RECORDS SUMMARY | 2022-05-22 08:25 | XMS_ITS | Encounter Summary ---
:1945 Author Organization [facility] Address [facility] [address] Care Team Providers Name Role Phone Lovely Vicente MD Primary Care Provider Reason for Visit Reason Comments Skin Check Encounter Details Date Type Department Care Team Description 11/05/2015 Office Visit Dermatology at [facility] benign nevi; Abdelrahman HOOPER MD Lentigines; [address] [facility] History of melanoma; [place] [address] Skin exam for malignant neoplasm [phone] [facility] [place], [place] [address] Social History Tobacco Use Types [...] the presence of Dr. Garcia.: GINNY CHRISTIANSEN PUMP AND STILL OPERATOR and Judit Cruz, Clinical Scribe I performed the above scribed service and agree with the accuracy of the documentation in this encounter. Rigoberto Garcia MD Section of Dermatology [facility] documented in this encounter Plan of Treatment Upcoming Encounters Date Type Specialty Care Team Description 05/28/2022 Appointment Cardiology Zulma Dolan MD [facility] [address] [place], [place] [address] (Wo rk) 05/28/2022 Laboratory Appointment Lab 05/28/2022 Office Visit Cardiology Zulma Dolan [place] [facility] [place] [address] Liz Poole PA [facility] [place] [address] 06/10/2022 Office Visit Dermatology Laura Scherer MD [facility] DR [address] [place], [place] [address] (Wo rk) documented as of this encounter Visit Diagnoses Diagnosis Multiple benign nevi Benign neoplasm of skin, site unspecifie d Lentigines Other dyschromia History of melanoma Personal history of malignant melanoma o f skin Skin exam for malignant neoplasm Screening for malignant neoplasm of the skin documented in this encounter Care Teams Correctional Case Manager Relationship Specialty Start Date End Date Lovely Vicente MD PCP - General 04/16/15 [facility] [address] [place] [address] (work) documented as of this encounter
--- OUTSIDE RECORDS SUMMARY | 2022-05-22 08:25 | XMS_ITS | Encounter Summary ---
:1945 Author Organization [facility] [place] [address] Care Team Providers Name Role Phone Lovely Vicente MD Primary Care Provider Reason for Visit Reason Onset Date Comments Medication Refill 06/19/2016 Encounter Details Date Type Department Care Team Description 06/19/2016 Refill Endocrinology at [facility] Luz Stallings MD [facility] [place] [address] ENDOCRINOLOGY DEPT [phone] [place], [place] [address] (Wo rk) Social History Tobacco [...] [facility] [place] [address] (Wo rk) 05/28/2022 Laboratory Appointment Lab 05/28/2022 Office Visit Cardiology Zulma Dolan MD [facility] [place] [address] Liz Poole PA [facility] [place] [address] 06/10/2022 Office Visit Dermatology Laura Scherer MD [facility] [address] [place], [place] [address] (Wo rk) documented as of this encounter Visit Diagnoses Not on filedocumented in this encounter Care Teams Head Charger Relationship Specialty Start Date End Date Lovely Vicente MD PCP - General 04/16/[address] [place], [place] [address] documented as of this encounter
--- OUTSIDE RECORDS SUMMARY | 2022-05-22 08:25 | XMS_ITS | Encounter Summary ---
:1945 Author Organization [facility] [place] [address] Care Team Providers Name Role Phone Lovely Vicente MD Primary Care Provider Reason for Visit Reason Comments Medication Refill Encounter Details Date Type Department Care Team Description 05/10/2015 Refill Endocrinology at [facility] Rosalind Covarrubias, [facility] [place] [address] [facility] [phone] ENDOCRINOLOGY [place], [place] [address] (Wo rk) Social History Tobacco [...] [facility] [place], [place] [address] (Wo rk) 05/28/2022 Laboratory Appointment Lab 05/28/2022 Office Visit Cardiology Zulma Dolan MD [facility] [place] [address] Liz Poole PA [facility] [place] [address] 06/10/2022 Office Visit Dermatology Laura Scherer MD [facility] ER [address] [place], [place] [address] (Wo rk) documented as of this encounter Visit Diagnoses Not on filedocumented in this encounter Care Teams Biller Relationship Specialty Start Date End Date Lovely Vicente MD PCP - General 04/16/[address] [place] [address] documented as of this encounter
--- OUTSIDE RECORDS SUMMARY | 2022-05-22 08:25 | XMS_ITS | Encounter Summary ---
:1945 Author Organization [place] [address] Care Team Providers Name Role Phone Lovely Vicente MD Primary Care Provider Reason for Visit Reason Comments Skin Lesion Encounter Details Date Type Department Care Team Description 11/24/2016 [facility] uncertain behavior of skin; Road IIIMD Pigmented skin lesion of uncertain natur e; [address] [facility] [place] of [place] [address] [facility] SIM[facility]N-DERMATOLGY [place], [place] [address] Social History Tobacco Use Types [...] or concerns, please call the office at [phone]. If it is after 5PM, or a holiday or weekend, please call [phone] and ask for the Wild Life Manager on-call. documented in this encounter Progress [...] 71 y.o. year old male.Established patient of [email or web address]. Last seen 06/05/16. Here today for new [...] Dolan MD [facility] er [place] [address] (Wo rk) 05/28/2022 Laboratory Appointment Lab 05/28/2022 Office Visit Cardiology Zulma Dolan MD [facility] [place] [address] Liz Poole PA [facility] [place] [address] 06/10/2022 Office Visit Dermatology Laura Scherer MD [facility] ER [address]MAT [place], [place] [address] (Wo rk) documented as of [...] Boys gist Range Method Time Signature Surgical [id number] ?Location: [facility] Report The [...] Organization Address City/State/[place] [address] Specimen to Pathology (NON-OR) [...] Organization Address City/State/[place] [address] documented in this encounter Visit Diagnoses Diagnosis Neoplasm of uncertain behavior of skin Pigmented skin lesion of uncertain natur e History of melanoma Personal history of malignant melanoma o f skin documented in this encounter Care Teams Mechanical Applications Engineer Relationship Specialty Start Date End Date Lovely Vicente MD PCP - General 04/16/[address] [place] [address] documented as of this encounter
--- OUTSIDE RECORDS SUMMARY | 2022-05-22 08:25 | XMS_ITS | Encounter Summary ---
:1945 Author Organization [facility] [place] [address] Care Team Providers Name Role Phone Lovely Vicente MD Primary Care Provider Reason for Visit Reason Onset Date Comments Medication Refill 12/24/2016 Encounter Details Date Type Department Care Team Description 12/24/2016 Refill Endocrinology at [facility] Luz Stallings MD [facility] [place] [address] ENDOCRINOLOGY DEPT [phone] [place], [place] [address] (Wo rk) Social History Tobacco [...] Dolan MD [facility] er [address] [place] [address] (Wo rk) 05/28/2022 Laboratory Appointment Lab 05/28/2022 Office Visit Cardiology Zulma Dolan MD [facility] [place] [address] [facility] [place] [address] 06/10/2022 Office Visit Dermatology Laura Scherer MD [facility] [address] [place], [place] [address] (Wo rk) documented as of this encounter Visit Diagnoses Not on filedocumented in this encounter Care Teams Lettuce Cutter Relationship Specialty Start Date End Date Lovely Vicente MD PCP - General 04/16/[address] [place], [place] [address] documented as of this encounter
--- OUTSIDE RECORDS SUMMARY | 2022-05-22 08:25 | XMS_ITS | Encounter Summary ---
:1945 Author Organization [facility] [place] [address] Care Team Providers Name Role Phone Lovely Vicente MD Primary Care Provider Reason for Visit Reason Onset Date Comments Pre Procedure Call 12/02/2016 Encounter Details Date Type Department Care Team Description 12/02/[address] [facility] Mira James LPN Pre Procedure Call [address] [place] [address] Social History Tobacco Use Types Packs/Day [...] MD [facility] [place], [place] [address] (Wo lissa) 05/28/2022 Laboratory Appointment Lab 05/28/2022 Office Visit Cardiology Zulma Dolan MD [facility] [place] [address] Liz Poole PA [facility] [place] [address] 06/10/2022 Office Visit Dermatology Laura Scherer MD [facility] [address], [place] [address] (Wo rk) documented as of this encounter Visit Diagnoses Not on filedocumented in this encounter Care Teams Licensed Acupuncturist Relationship Specialty Start Date End Date Lovely Vicente MD PCP - General 04/16/[address] [place] [address] documented as of this encounter
--- OUTSIDE RECORDS SUMMARY | 2022-05-22 08:25 | XMS_ITS | Encounter Summary ---
:1945 [place] [address] Care Team Providers Name Role Phone Lovely Vicente MD Primary Care Provider Reason for Visit Auth/Cert Specialty Diagnoses / Procedures Referred By Contact Refer red To Contact Diagnoses STEMI (ST elevation myocardial infarction) NSTEMI STEMI Procedures CARDIAC CATHETERIZATION NAYE IPI Referral ID Status Reason Start Date Expiration Date Visits Requ ested Visits Authorized [id number] 1 1 Encounter Details Date Type Department Care Team Description 07/05/2017 Surgery State Wildlife Officer Jet Guan, CARDIAC CATHETERIZATION [facility] [place] [address] CARDIOLOGY DEPT. [phone] [place], [place] [address] (Wo rk) Social History Tobacco [...] this encounter Discharge Summaries Martha Teague S, PROFESSOR OF HISTORICAL THEOLOGY - 07/14/2017 9:38 AM EST Inpatient - Discharge Summary Patient Name: Gregory Hoang Patient Age: 72 y.o. Birthdate: 1945 Language: Sammarinese Race: White Ethnicity: Not nor Admit Date: [...] , @ 1:20p Patient to follow-up with Cigar Packer And Shader/heart failure team in one week. An appointment will be made for you. You may call [phone] Patient to follow-up with Cardiac Surgery, Dr. Yuan Webber, in ~ 4 weeks with CXR, EKG. Inpatient Provider Contact Information: [facility] [address] FAX [phone] Discharge Diagnoses (Hospital Problems) Primary Diagnoses: CAD [...] by mouth daily. 90 tablet 3 07/05/2017 [id number] ??? ascorbic acid, vitamin C, (VITAMIN C) [...] hospital and ruled infor non-ST segment elevation ID. This almost certainly represents the residual of [...] course, he was taken emergently to the dental lab technician for an ongoing STEMI. An [...] not take or discontinue any prescription or qarm-vvd-vmvynvt medications without asking your doctor or pharmacist [...] your insulin doses adjusted. [facility] Endocrine [facility] office Discharge [...] Yuan Webber and/or the Cardiac Surgery Physician Stockbroking Dealer Team may be reached at . Weight: [...] Dr. Yuan Webber. You may use a Stryker Track or treadmill but avoid any pulling [...] friends, go to a movie, go to jainism, etc. Heavy activities: No hunting, skiing, jogging, snow shoveling, snowmobiling, lawn mowing, swimming, golf or tennis until after your return appointment with the surgeon. Do not ride motorcycles, Language Systems tractors or horses. Avoid the use [...] should resume a low fat, low cholesterol, [place] Heart Association Diet/Diabetic diet. Driving: No driving [...] , @ 1:20p Patient to follow-up with Cigar Packer And Shader/heart failure team in one week. Appointment will be made for you. You may call [phone] Patient to follow-up with Cardiac Surgery, Dr. [...] THREE L Lab 3L [facility] [phone] 09/07/2017 4:00 PM Luz Prescott MD Endocrinology at [facility] [phone] Future Orders Complete By Expires EKG 12 Lead [EKG1 Custom] 08/14/2017 02/13/2018 Process Instructions: Scheduling Instructions: Questions: Which DH location will this be performed?: [facility] Is a rhythm strip needed?: No If EKG Reason is Pre-op Evaluation, indicate diagnosis for surgery.: XR Chest PA & Lateral (Generic) [[id number] Custom] 08/14/2017 02/13/2018 Process Instructions: Scheduling Instructions: Questions: Where will study be performed?: [facility] Portable exam?: Reason for exam and clinical history: CABG x 3 Other pertinent information: Stat read required?: Date of injury if applicable: Requested Time: Referral to Cardiac Rehab [[id number] Custom] As directed Process Instructions: If no progress note charted, please enter Clinical details in comments. Scheduling Instructions: Questions: My question or request is: s/p CABG. Cardiac rehab at [facility] Referral to Home Health - at DISCHARGE [XZT1509 CPT(R)] As directed Process Instructions: Scheduling Instructions: Comments: DOCUMENTATION FOR VNA SERVICES (INCLUDING THOSE PATIENTS WITH MEDICARE COVERAGE REQUIRING HOME VNA SERVICES AND/OR HOSPICE SERVICES) PATIENT'S LOCATION: Gregory Hoang [address] [place] [address] [place] [address] (home) Telephone Information: Cytotechnologist Supervisor's Name: self In discussion with the attending physician, it is certified that this patient is under their care and that they, or a Nurse Practitioner, or Physician Stockbroking Dealer who is working directly with them, had [...] [facility] ([facility] [place] [employer]-is in [place]) PHONE: [phone] FAX: [phone] RN orders: Cardiopulmonary assessment, incisional assessment, assess vital signs, assessment of rehab progress, medication management and effectiveness, home safety evaluation. Please draw INR if indicated and send result to:Dr Vicente [phone] PT ORDERS: Continue rehab for endurance, gait stability and strength with mobility and transfers. Home safety evaluation. Home exercise program if appropriate. Start of Care Date:24-48 hours after discharge SPECIAL INSTRUCTIONS: For any follow up questions, needs, or issues please call the Cardiac Surgery Office at [phone] FOR MEDICARE ONLY: (please delete this section [...] AFTER 07/17/2017 Signed: Martha Teague APRN [facility] [address] FAX [phone] Date: 07/14/2017 CC: MD Ivania Cr Betsy, PA [address] [place] [phone] documented in this encounter Discharge Instructions Discharge [...] your insulin doses adjusted. [facility] Endocrine clinic office Patient [...] not take or discontinue any prescription or mkjo-edy-hgavxmn medications without asking your doctor or pharmacist [...] your insulin doses adjusted. [facility] Endocrine clinic office ? [...] Yuan Webber and/or the Cardiac Surgery Physician Stockbroking Dealer Team may be reached at . ?? [...] Dr. Yuan Webber. You may use a Stryker Track or treadmill but avoid any pulling [...] friends, go to a movie, go to jainism, etc. ?? Heavy activities: No hunting, skiing, jogging, snow shoveling, snowmobiling, lawn mowing, swimming, golf or tennis until after your return appointment with the surgeon. Do not ride motorcycles, [employer]'s tractors or horses. Avoid the use of [...] should resume a low fat, low cholesterol, [place] Heart Association Diet/Diabetic diet. ?? Driving: No [...] @ 1:20p ?? Patient to follow-up with Cigar Packer And Shader/heart failure team in one week. An appointment has been made for you, you can call [phone] ?? Patient to follow-up with Cardiac Surgery, [...] THREE L Lab 3L [facility] [phone] ?? 09/07/2017 4:00 PM Luz Prescott MD Endocrinology at [facility] [phone] Future Orders Complete By Expires ?? EKG 12 Lead [EKG1 Custom] 08/14/2017 02/13/2018 ?? Process Instructions: ? Scheduling Instructions: ? Questions: ? Which location will this be performed?: [facility] ?? Is a rhythm strip needed?: No ?? If EKG Reason is Pre-op Evaluation, indicate diagnosis for surgery.: ?? XR Chest PA & Lateral (Generic) [[id number] Custom] 08/14/2017 02/13/2018 ?? Process Instructions: ? Scheduling Instructions: ? Questions: ? Where will study be performed?: [facility] ?? Portable exam?: ?? Reason for exam and clinical history: CABG x 3 ?? Other pertinent information: ?? Stat read required?: ?? Date of injury if applicable: ?? Requested Time: ?? Referral to Cardiac Rehab [[id number] Custom] As directed ? Process Instructions: ?? [...] referrals are placed. Patient requests referral to [facility]. PHONE: [phone] FAX: [phone] Expected date of discharge: 07/14 Referral routed to the Processes Chemical Design Engineer for matching with agency/vendor and [...] your insulin doses adjusted. [facility] Endocrine [facility] office Kathie Carrera APRN [facility] Endocrinology Diabetes Management Pager [phone] 20 minutes of this 35 minute visit [...] [facility] ([facility] [place] [employer]-is in [place]) PHONE: [phone] FAX: [phone]. Expected date of discharge: 07/14/17 Referral routed to the Processes Chemical Design Engineer for matching with agency/vendor and [...] hours. If BG remains greater than 240, [id number] units (no more than three times) &??call [...] follow Katerin Azul APRN [facility] Endocrinology Diabetes Management Pager [phone] 15 minutes of this 25 minute visit [...] of infiltration/extravasation Discussed plan of care with IMPORT/EXPORT CLERK and RN. Elevate exrtemity and apply intermittent Warm compresses. Name of MD contacted Dr. Shaw Brown 07/13/2017 @ 0655 Name of RN contacted Ale Rangle RN Name of Pharmacist if consulted NA Name of Plastics MD ( if consulted) NA (Mandatory photo for infiltrations/ extravasations scoring a stage 2 or greater, but recommended forstage 1)( include measuring tape and identifier in the photo) FINANCE ADMINISTRATOR CARING FOR THIS PATIENT WILL CONTINUE [...] measuring tape and identifier in the photo) FINANCE ADMINISTRATOR CARING FOR THIS PATIENT WILL CONTINUE [...] regard to both infiltrates addressed by this music writer.All of Mr. Hoang's responses were entirely appropriate. Images of infiltrates attached here. Martha Sharp APRN - 07/13/2017 8:01 AM EST Cardiac Surgery Progress Note: ID: [id number] 72 year old male POD#6 s/p CABGx3 [...] I have provided the [facility], Office of Care Management letter from the Furniture Dipper pertaining to rehab referrals. I have also provided a letter describing our affiliations within the [facility] and educated them about their right [...] date of discharge: 07/14 Note routed to Processes Chemical Design Engineer who will communicate referrals to facilities [...] hours. If BG remains greater than 240, ycbxwe15 units (no more than three times) & [...] hours. If BG remains greater than 240, llaiym09 units (no more than three times) & call for new basal insulin orders. ??If less than 240 after two hours, give no insulin and resume prior schedule. Will continue to follow Katerin Azul APRN [facility] Endocrinology Diabetes Management Pager [phone] 20 minutes of this 35 minute visit was spent with the patient in counseling on diabetes and treatment plan, reviewing all glucose and insulin data as well as relevant laboratory results with the patient, and coordination of care on the inpatient unit including nursing and primary team. Makayla Stevenson APRN - 07/12/2017 9:52 AM EST Cardiac Surgery Progress Note: ID: [id number] 72 year old male POD#5 s/p CABGx3 [...] 07/11/2017 7:18 PM EST Patient arrived from [facility]. VSS. MSI dressing pulled off with [...] hours. If BG remains greater than 240, vejnlh91 units (no more than three times) & [...] AM EST Cardiac Surgery Progress Note: ID: [id number] 72 year old male POD#4 s/p CABGx3 [...] AM EST Cardiac Surgery Progress Note: ID: [id number] 72 year old male POD#3 s/p CABGx3 [...] Gas) No results found for: PHART, PO2ART, KTN2HAU Assessment/Plan: 72 year old male POD#3 s/p [...] Mami Thao - 07/09/2017 6:29 PM EST Rail Detector Car Operator Encounter Note Patient Name: Gregory Hoang : [id number] MR#: [id number] Admit Date: 07/05/2017 4:20 PM Hospital Day 4 days Narrative: Patient was sitting in chair, hugging heart pillow, opened his eyes, nodding to come into room Assessment: Patient was sleepy. Intervention and Outcome: Introduced window dresser services and patient reached his hand out in appreciation. Follow-up: Rail Detector Car Operator remains available for support. Time in [...] AM EST Cardiac Surgery Progress Note: ID: [id number] 72 year old male POD#2 s/p CABGx3 [...] when IABP d/c'ed. Gretchen Carolina, PT Pager [phone] Maddison Cee PA - 07/08/2017 11:27 AM EST Cardiac Surgery Progress Note: ID: [id number] 72 year old male POD#1 s/p CABGx3 [...] in place in R femoral. No hematoma. FUNCTIONAL ANALYST- Intact Psych- Anxious Skin- Dry, no [...] intact. IABP in place in R femoral. FUNCTIONAL ANALYST- Intact Psych- Anxious Skin- Dry, no [...] note for details. DAPHNE SHAHID MD Pager [phone] ClarisaJet lynn MD - 07/05/2017 6:48 PM EST Preliminary Cardiac Catheterization Procedure Note: Procedure(s) performed: Left heart cath, IABP insertion Access: Right GAS TORCH BRAZIER-->8fr IABP A time-out was conducted prior to [...] effect. Heparin gtt maintained. Pt transferred to dental lab technician. documented in this encounter H&P Notes Daphne Shahid MD - 07/05/2017 6:08 PM EST CARDIOLOGY HISTORY & PHYSICAL EXAM Date of Admission: 07/05/2017 ( Hospital Day 0 days ) Responsible Attending: Daphne Shahid MD PCP: Lovely Vicente MD PCP#: [phone] Patient Active Problem List Diagnosis Code ??? [...] load with heparin drip and transferred to [facility]. While there, continued sob, question of chest pain. Stat TTE showing WMA diffusely and EF around 20%. No significant valvular disease. Taken to the dental lab technician urgently [facility]I. [facility] monitor I/O - s/p lasix in the dental lab technician, redose to aim net neg [...] Medicine, PGY-2 Cardiology S1, Team Pager # [phone] CARDIOLOGY ATTENDING NOTE Patient: Gregory Hoang Date [...] amenable for PCI. DAPHNE SHAHID MD Pager [phone] documented in this encounter Miscellaneous Notes Consult Note - Daphne Shahid MD - 07/14/2017 11:46 AM EST Heart Failure Service Inpatient Consult Note Gregory Hoang Date of : 1945 Age: 72 y.o. Today's date: 07/14/17 PCP: Lovely Vicente MD SCHEDULING ADMINISTRATOR: None [facility] of Service: [facility] [...] Mcknight MD at [facility] OR Outpt Meds: Current Outpatient Prescriptions [...] following studies: EKG 07/14/17: NSR 75 bpm, INTERIOR BLOCK WIRER anterior infarct, LAD CXR 07/11/17: FINDINGS: Sternotomy wires. The patient has been extubated, left chest tube removed, and Westminster-Suzi catheter removed since the 07/07/2017 study. Atelectasis [...] was discussed with Kono. Jaden Kelley MD Chief Nurse Anesthetist Pager [phone] CARDIOLOGY ATTENDING NOTE Patient: Gregory Hoang Date [...] Pager [phone] Plan of Care - Alden Chavarria PTA [...] home with assist Alden Chavarria PTA Pager: [phone] Inpatient Physical Therapy Problem: Acute Rehab Services [...] sit/sit to supine -- Bed Mobility Goal, [place] supervision required -- Bed Mobility Goal, [...] - 3 days -- Gait Training Goal, [place] supervision required -- Gait Training Goal, [...] days -- Transfer Training Goal, Activity Type ggt-fy-jldov/hqoda-cx-wxe;ilz-an-cctme/hiwww-lu-gqb;toilet -- Transfer Train Goal, [place] supervision required -- Transfer Training Goal, [...] keeping present for 2 days per family. Manager Code noted of frustrations, house keeping sent to room. Patient offered showered twice, refused. at bedside, frustrated that shower not complete, informed that patient had refused several times. requesting to see PERFUME COMPOUNDER, paged sent to Martha, will come to bedside (middle of consult). not willing to wait, Martha notified that family had gone home. Encouraged to come for morning rounds a t 8am. Diabetes team at bedside - insulin adjustments made. Call cabello in reach. Continue to monitor. PLAN MOVING FORWARD: Ambulate, dressing changes BID, Please change drsg at 4am per Martha PERFUME COMPOUNDER request. INDIVIDUALIZED FALL PREVENTION INTERVENTIONS: Patient-specific fall [...] levels on the lower side, 60ml of [place] juice given after a FS of 80. [...] monitoring required during toileting and ADLs]: RN IMPORT/EXPORT CLERK Surveillance [continuous indirect monitoring]: Barrett Monitor [...] Anticipated Discharge Disposition: home with assist Pager: [phone] CLARISSA SEGAL, PT 07/12/2017 Physical Therapy Rehabilitation [...] to sit/sit to supine Bed Mobility Goal, [place] supervision required Bed Mobility Goal, Additional Goal adheres to psternal precautions for transfer Goal: Gait Training Goal Stand Alone Therapy Goal Outcome: Ongoing (Interventions Implemented as Appropriate) 07/12/17 1225 Gait Training Goal Gait Training Goal, Date Established 07/12/17 Gait Training Goal, Time to Achieve 2 - 3 days Gait Training Goal, [place] supervision required Gait Training Goal, Assist [...] 3 days Transfer Training Goal, Activity Type pqs-im-xvdso/apmxh-ua-gcz;wam-ux-ubfgd/focve-ah-qaq;toilet Transfer Train Goal, [place] supervision required Transfer Training Goal, Additional Goal adheres to sternal precautions during transfer Consult Note - Octavia Vaughn RN - 07/12/2017 10:50 AM EST [facility] CARD[facility]AC [facility]HABILITATION Gregory Hoang was seen today [...] IV site, amio to other piv and VP OF TECHNOLOGY at bedside to help assess, IV removed. [...] staff, he stood and marched in place. [place] weak, wanting to sit back down. Remained [...] Health/Prescription Coverage: Primary Insurance: MEDICARE Secondary Insurance: [employer] [place] Prescription Coverage: yes Preferred Pharmacy: [facility] [place] Other: none Primary Care Provider: Lovely Vicente MD [phone] Patient/Caregiver Goals of Treatment:live and get my breath back Potential Needs for Transition of Care: Rehab/SNF: [facility] Home Health: NA DME: TBD Dialysis: na Community Resources: available Transportation: yes Other: none Anticipated Barriers to Discharge/Special Considerations: none Plan: Likely SNF Rehab before home A member of the Care Management team will continue to monitor progress, follow for continuity of care and assist with transition of care planning. ERLIN Weiss Pager: [phone] Consult Note - Katerin Azul RN - [...] review of [facility] diabetes care. Diabetes History: Gregory Hoang has [...] - 5.6 % 6.8 (H) Assessment: Gregory Honag is a 72 y.o. male with PMH [...] patient W/E coverage, Dr. Jeane Tatum, pager [phone] Katerin Azul APRN Endocrinology Diabetes Management Pager [phone] Plan of Care - Stephanie Godoy RN [...] 07/07/2017 6:27 PM EST [facility] Operative Note Patient Name: Gregory Hoang : [id number] MR#: [id number] Case Date: 07/07/2017 Surgeon: Surgeon(s) and Role: * Yuan Webber MD - Primary * Michael Drake PA - Physician Stockbroking Dealer * Linda Flores PA - Physician Stockbroking Dealer Preoperative diagnosis: 3VD Postoperative diagnosis: CAD, severe [...] Operative Note Patient Name: Gregory Hoang : [id number] MR#: [id number] Case Date: 07/07/2017 Surgeon: Surgeon(s) and Role: * Yuan Webber MD - Primary * Michael Drake PA - Physician Stockbroking Dealer * Linda Flores PA - Physician Stockbroking Dealer Preoperative diagnosis: 3VD Postoperative diagnosis: CAD, severe [...] (Acute Coronary Syndrome) (Adult) [facility]). 07/07/17621 Cardiac: ACS (Acute Coronary Syndrome) Problems [...] y.o. male with a history of MARIA [place] (on CPAP), DM2, COPD, HTN, HLD, GERD, [...] major CV events such as , stroke, ID, repeat revascularization compared to PCI). In this [...] Hahn, MS3 [employer] [facility] Cardiology S1 (Pager [phone]) Plan of Care - Emelia Ibarra RN [...] hospital and ruled infor non-ST segment elevation ID. This almost certainly represents the residual of [...] [facility] ENDOSCOPY ??? PRO THYROIDECTOMY 03/28/2013 THYROIDECTOMY, TOTAL OR COMPLETE performed by Manny Mcknight MD at [facility] MAIN OR Social History: Social [...] with other involved physicians Yuan Webber MD [phone] Med Student Progress Note - Katty Hahn [...] major CV events such as , stroke, ID, repeat revascularization compared to PCI). In this [...] or BiPAP - s/p lasix in the dental lab technician, was net -1.5L - s/p [...] - hold metformin - f/u [facility] ?? #Home Meds - continue levothyroxine 175mcg - CPAP at night ?? # Routine - DVT PPx: heparin drip - Diet: Healthy heart diet, NPO at midnight for CABG tomorrow - Code Status: FULL - Dispo: CVCC Katty Hahn, M3 [facility] Cardiology S1 (Pager [phone]) Plan of Care - Stephanie Godoy RN - 07/06/2017 5:00 AM EST Problem: Patient Care Overview Goal: Plan of Care Review 07/06/17 1316 Coping/Psychosocial Plan Of Care Reviewed With patient;family [...] in urinal without difficulty. Lasix given in dental lab technician, 1.4 L out at this [...] Dolan MD [facility] [place] [address] (Wo rk) 05/28/2022 Laboratory Appointment Lab 05/28/2022 Office Visit Cardiology Zulma Dolan MD [facility] [place] [address] Liz Poole PA [facility] [place] [address] 06/10/2022 Office Visit Dermatology Laura Scherer MD [facility] [address] [facility] [place], [place] [address] (Wo rk) Scheduled Orders Name [...] procedure are i n the results section. EDGE SANDER SCAN 07/15/2017 12:00 Res ults for this [...] Results f or this ([facility] AM EST procedure are [...] Results f or this ([facility]) AM EST procedure are [...] Results f or this ([facility]) PM EST procedure are [...] Results f or this ([facility]) PM EST procedure are [...] SCREEN Routine 07/06/2017 12:00 ([facility]AN[facility]) PM EST APTT STAT [...] Results f or this ([facility]) AM EST procedure are [...] Results f or this ([facility]) AM EST procedure are [...] Results f or this ([facility]) PM EST procedure are [...] Results f or this ([facility]) PM EST procedure are [...] 2017 EXAMINATION: XR CHEST PA AND LATERAL ([facility]) CLINICAL HISTORY: CABG x 3 TECHNIQUE: PA [...] Teague APRN IMG DX ORDERABLES SCAN DOC: EDGE SANDER (07/15/2017 12:00 AM EST) Narrative 07/15/2017 12:00 [...] 186 65 - 199 [facility] mg/dL [facility] Comment: Supplemental ranges: <140 mg/dL before meals <180 mg/dL all other times of the day Specimen Anatomical Collection Method Collection Time Receive d Time (Source) Location / / Volume Laterality Blood specimen 07/14/2017 11:56 7 (specimen) AM EST 11:56 AM EST Yuan Webber MD POINT OF CARE TEST ORDERABLE S Performing Organization Address City/State/[place] [address] POCT Glucose (07/14/2017 7:52 AM EST) athologist Signature POC Glucose 126 65 - 199 [facility] mg/dL [facility] Comment: Supplemental [...] City/[facility]/[place] [address] (ABNORMAL) Prothrombin Time (07/14/2017 [...] HEMATOLOGY ORDERABLES Performing Organization Address City/[facility] Code [facility] [place] [address] Potassium (07/14/2017 4:46 AM EST) athologist Signature Potassium 4.3 3.5 - 5.0 [facility] mmol/L [facility] Comment: Please note: ??Patients [...] e Number [address] POCT Glucose (07/14/2017 4:34 AM EST) athologist Signature POC Glucose 115 65 - 199 KATALINA RYAN mg/dL [facility] Comment: [...] Hospital Center/ZIP Code Phon e Number [address] POCT Glucose (07/13/2017 11:33 PM EST) athologist Signature POC Glucose 132 65 - 199 KATALINA ZHAORYAN mg/dL [facility] Comment: [...] Center/ZIP Code Phon [place] [address] POCT Glucose (07/13/2017 9:25 PM EST) athologist Signature POC Glucose 121 65 - 199 K[place]ALINA RYAN mg/dL [facility] Comment: [...] e Number [address] POCT Glucose (07/13/2017 4:55 PM EST) athologist Signature POC Glucose 79 65 - 199 [facility] mg/dL [facility] Comment: [...] e Number [address] POCT Glucose (07/13/2017 11:16 AM EST) athologist Signature POC Glucose 163 65 - 199 [facility] mg/dL [facility] Comment: [...] e Number [address] POCT Glucose (07/13/2017 8:07 AM EST) athologist Signature POC Glucose 96 65 - 199 [place] mg/dL [facility] Comment: [...] Number [address] (ABNORMAL) Prothrombin Time [...] Organization Address City/State/[place] [address] (ABNORMAL) Basic Metabolic Panel (non-fasting) (07/13/2017 4:26 AM EST) athologist Signature Glucose Lvl 95 65 - 199 [facility] mg/dL [facility] [...] or in patients with acute kidney failure. [email or web address] Specimen Anatomical Collection Method Collection Time Receive d Time (Source) Location / / Volume Laterality Blood specimen 07/13/2017 4:26 AM 017 4:46 (specimen) EST AM EST Resulting Agency Comment Spec In Lab Makayla Wilson APRN CHEMISTRY ORDERABLES Performing Organization Address City/State/ZIP Code Phon e Number [address] POCT Glucose (07/13/2017 3:52 AM EST) athologist Signature POC Glucose 93 65 - 199 [facility] Comment: Supplemental [...] e Number [address] POCT Glucose (07/13/2017 12:21 AM EST) athologist Signature POC Glucose 80 65 - 199 [facility] Comment: Supplemental [...] e Number [address] POCT Glucose (07/12/2017 8:22 PM EST) athologist Signature POC Glucose 119 65 - 199 [facility] mg/dL [facility] Comment: [...] Hospital Center/ZIP Code Phon e Number [address] POCT Glucose (07/12/2017 4:02 PM EST) athologist Signature POC Glucose 114 65 - 199 [facility] mg/dL [facility] Comment: [...] e Number [address] POCT Glucose (07/12/2017 11:28 AM EST) P athologist Signature POC Glucose 164 65 - 199 [facility] mg/dL [facility] Comment: [...] e Number [address] POCT Glucose (07/12/2017 7:34 AM EST) athologist Signature POC Glucose 109 65 - 199 [facility] Comment: Supplemental ranges: <140 mg/dL before meals <180 mg/dL all other times of the day Specimen Anatomical Collection Method Collection Time Receive d Time (Source) Location / / Volume Laterality Blood specimen 07/12/2017 7:34 AM 017 7:34 (specimen) EST AM EST Yuan Webber MD POINT OF CARE TEST ORDERABLE S Performing Organization Address City/State/[place] [address] (ABNORMAL) Basic Metabolic Panel (non-fasting) (07/12/2017 4:11 AM EST) athologist Signature Glucose Lvl 92 65 - 199 [facility] Comment: Diabetes: [...] or in patients with acute kidney failure. [email or web address] Specimen Anatomical Collection Method Collection Time Receive d Time (Source) Location / / Volume Laterality Blood specimen 07/12/2017 4:11 AM 017 8:57 (specimen) EST AM EST Resulting Agency Comment Spec In Lab Maakyla [place] STACIE CHEMISTRY ORDERABLES Performing Organization Address [facility] [place] [address] (ABNORMAL) Prothrombin Time (07/12/2017 [...] [place] STACIE HEMATOLOGY ORDERABLES Performing Organization Address [facility] Phon e Number [address] Potassium (07/12/2017 4:11 AM EST) P athologist Signature Potassium 3.8 3.5 - 5.0 [facility] mmol/L [facility] Comment: Please note: ??Patients [...] ORDERABLES Performing Organization Address City/[facility]/ZIP [facility] Phon e Number [address] POCT Glucose (07/12/2017 4:10 AM EST) athologist Signature POC Glucose 90 65 - 199 [facility] Comment: [...] Hospital Center/ZIP Code Phon e Number [address] POCT Glucose (07/11/2017 11:57 PM EST) athologist Signature POC Glucose 98 65 - 199 [facility]dL [facility] Comment: [...] Hospital Center/ZIP Code Phon e Number [address] POCT Glucose (07/11/2017 8:32 PM EST) P athologist Signature POC Glucose 146 65 - 199 [facility] DAV[facility] mg/dL [facility] Comment: [...] Organization Address City/State/[place] [address] XR Chest PA & [...] e xtubated, left chest tube removed, and Westminster-Suzi catheter removed since the study. Atelectasis at [...] e xtubated, left chest tube removed, and Westminster-Suzi catheter removed since the study. Atelectasis at [...] (H) 65 - 199 [facility] mg/dL [facility] Comment: [...] Hospital Center/ZIP Code Phon e Number [address] POCT Glucose (07/11/2017 11:55 AM EST) athologist Signature POC Glucose 176 65 - 199 [facility] mg/dL [facility] Comment: [...] Organization Address City/State/[place] [address] POCT Glucose (07/11/2017 7:53 AM EST) athologist Signature POC Glucose 189 65 - 199 [facility] mg/dL [facility] Comment: [...] Hospital Center/ZIP Code Phon e Number [address] POCT Glucose (07/11/2017 4:22 AM EST) athologist Signature POC Glucose 151 65 - 199 [place] mg/dL [facility] Comment: Supplemental ranges: <140 mg/dL before meals <180 mg/dL all other times of the day Specimen Anatomical Collection Method Collection Time Receive d Time (Source) Location / / Volume Laterality Blood specimen 07/11/2017 4:22 AM 017 4:22 (specimen) EST AM EST Yuan Webber MD POINT OF CARE TEST ORDERABLE S Performing Organization Address [facility]/[place] [address] Potassium (07/11/2017 2:20 AM EST) athologist Signature Potassium 4.5 3.5 - 5.0 [facility] mmol/L [facility] Comment: Please note: ??Patients [...] Hospital Center/ZIP Code Phon e Number [address] POCT Glucose (07/11/2017 12:17 AM EST) athologist Signature POC Glucose 162 65 - 199 [place] mg/dL [facility] Comment: [...] e Number [address] POCT Glucose (07/10/2017 8:47 PM EST) athologist Signature POC Glucose 191 65 - 199 [place] mg/dL [facility] Comment: [...] Organization Address City/State/[place] [address] POCT Glucose (07/10/2017 4:06 PM EST) athologist Signature POC Glucose 131 65 - 199 [facility] mg/dL [facility] Comment: [...] e Number [address] POCT Glucose (07/10/2017 3:08 PM EST) athologist Signature POC Glucose 151 65 - 199 [facility] mg/dL [facility] Comment: [...] e Number [address] POCT Glucose (07/10/2017 2:25 PM EST) athologist Signature POC Glucose 146 65 - 199 [place]HAORY[facility] mg/dL [facility] Comment: [...] Organization Address City/State/[place] [address] POCT Glucose (07/10/2017 1:23 PM EST) athologist Signature POC Glucose 166 65 - 199 [place] ZHAORYAN mg/dL [facility] Comment: [...] Organization Address City/State/[place] [address] POCT Glucose (07/10/2017 11:52 AM EST) athologist Signature POC Glucose 157 65 - 199 [facility] mg/dL [facility] Comment: [...] e Number [address] POCT Glucose (07/10/2017 11:01 AM EST) P athologist Signature POC Glucose 158 65 - 199 [place]HAORY[facility] mg/dL [facility] Comment: [...] Hospital Center/ZIP Code Phon e Number [address] POCT Glucose (07/10/2017 9:54 AM EST) P athologist Signature POC Glucose 160 65 - 199 [place] mg/dL [facility] Comment: [...] e Number [address] POCT Glucose (07/10/2017 8:58 AM EST) P athologist Signature POC Glucose 183 65 - 199 [place] mg/dL [facility] Comment: [...] e Number [address] POCT Glucose (07/10/2017 8:01 AM EST) P athologist Signature POC Glucose 173 65 - 199 [place] mg/dL [facility] Comment: [...] e Number [address] POCT Glucose (07/10/2017 7:05 AM EST) athologist Signature POC Glucose 166 65 - 199 [place] mg/dL [facility] Comment: [...] Organization Address City/State/[place] [address] POCT Glucose (07/10/2017 6:00 AM EST) athologist Signature POC Glucose 162 65 - 199 [facility] mg/dL [facility] Comment: [...] City/State/ZIP Code Phon e Number [place] [id number] [facility] LAB[address]ORY Drive (ABNORMAL) Differential, Automated (07/10/2017 4:28 AM EST) [facility] Method Time Signature Neutrophils % 87.9 % [facility] Neutr Abs (ANC) 10.70 (H) 1.70 - [facility] 6.10 [facility] x10(3)/[facility] L LABORATORY Lymphocytes % 3.9 % [facility] Lymphocytes Abs 0.5 (L) 0.9 - 3.2 [facility] x10(3)/[facility] LABORATORY Monocytes % 7.0 % [facility] Monocyte Abs 0.8 0.3 - 0.9 [facility] x10(3)/[facility] LABORATORY Eosinophils % 0.3 % [facility] Eosinophils Abs 0.0 0.0 - 0.4 [facility] x10(3)/[facility] LABORATORY Basophils % 0.2 % [facility] Basophils Abs 0.0 0.0 - 0.1 [facility] x10(3)/[facility] LABORATORY Immature Gran % 0.70 % [facility] [...] City/[facility]/[place] [address] (ABNORMAL) Hemogram (07/10/2017 4:28 AM EST) Analysis Performed At Patho logist Time Signature WBC 12.2 (H) 4.0 - 9.5 [facility] x10(3)/[facility] LABORATORY RBC 3.31 (L) 4.58 - [place] 5.54 [facility] x10(6)/[facility] LABORATORY Hemoglobin 9.8 (L) 13.7 - [facility] 16.5 gm/dL [facility] Hematocrit 30.0 (L) 40.5 - [facility] 48.5 % [facility] MCV 90.6 82.9 - [facility] 93.1 [facility] LABORATORY MCH 29.6 27.5 - [facility] 32.1 pg [facility] MCHC 32.7 32.0 - [facility] 35.7 gm/dL [facility] Platelets 135 (L) 145 - 357 [facility] x10(3)/[facility] LABORATORY RDWSD 50.8 (H) 36.0 - [facility] 45.0 [facility] LABORATORY RDWCV 15.4 (H) 11.4 - [facility] 13.8 % [facility] MPV 10.0 7.6 - 12.9 [facility] LABORATORY nRBC % Auto 0.0 % [facility] nRBC Abs Auto 0.000 0.000 - [facility] 0.000 [facility] x10(3)/[facility] LABORATORY Specimen Anatomical Collection Method Collection Time Receive d Time (Source) Location / / Volume Laterality Blood specimen 07/10/2017 4:28 AM 017 4:36 (specimen) EST AM EST Resulting Agency Comment Spec In Lab Yuan Webber MD HEMATOLOGY ORDERABLES Performing Organization Address City/State/ZIP Code Phon e Number [address] (ABNORMAL) Basic Metabolic Panel (non-fasting) (07/10/2017 4:28 AM EST) P athologist Signature Glucose Lvl 178 65 - 199 [facility] mg/dL [facility] [...] or in patients with acute kidney failure. [email or web address] Specimen Anatomical Collection Method Collection Time Receive d Time (Source) Location / / Volume Laterality Blood specimen 07/10/2017 4:28 AM 017 4:36 (specimen) EST AM EST Resulting Agency Comment Spec In Lab Yuan Webber MD CHEMISTRY ORDERABLES Performing Organization Address City/State/[place] [address] POCT Glucose (07/10/2017 4:26 AM EST) P athologist Signature POC Glucose 176 65 - 199 [facility] mg/dL [facility] Comment: Supplemental [...] Number [address] (ABNORMAL) POCT Glucose (07/10/2017 3:06 AM EST) P athologist Signature POC Glucose 204 (H) 65 - 199 [facility] mg/dL [facility] Comment: [...] City/[facility]/[place] [address] (ABNORMAL) POCT Glucose (07/10/2017 2:10 AM EST) P athologist Signature POC Glucose 203 (H) 65 - 199 [facility] mg/dL [facility] Comment: [...] e Number [address] POCT Glucose (07/10/2017 1:09 AM EST) P athologist Signature POC Glucose 196 65 - 199 [facility] mg/dL [facility] Comment: [...] e Number [address] POCT Glucose (07/10/2017 12:10 AM EST) P athologist Signature POC Glucose 173 65 - 199 [place] mg/dL [facility] Comment: [...] Organization Address City/State/[place] [address] POCT Glucose (07/09/2017 11:01 PM EST) P athologist Signature POC Glucose 140 65 - 199 [place] mg/dL [facility] Comment: [...] Organization Address City/State/[place] [address] POCT Glucose (07/09/2017 10:05 PM EST) P athologist Signature POC Glucose 144 65 - 199 [facility] mg/dL [facility] Comment: [...] e Number [address] POCT Glucose (07/09/2017 9:31 PM EST) athologist Signature POC Glucose 121 65 - 199 [place] mg/dL [facility] Comment: [...] Hospital Center/ZIP Code Phon e Number [address] POCT Glucose (07/09/2017 9:03 PM EST) athologist Signature POC Glucose 98 65 - 199 [place] mg/dL [facility] Comment: [...] Hospital Center/ZIP Code Phon e Number [address] POCT Glucose (07/09/2017 8:09 PM EST) athologist Signature POC Glucose 117 65 - 199 [place] mg/dL [facility] Comment: [...] e Number [address] POCT Glucose (07/09/2017 5:40 PM EST) athologist Signature POC Glucose 155 65 - 199 [place] [facility] mg/dL [facility] Comment: [...] e Number [address] POCT Glucose (07/09/2017 4:24 PM EST) athologist Signature POC Glucose 164 65 - 199 [place] mg/dL [facility] Comment: [...] e Number [address] POCT Glucose (07/09/2017 3:19 PM EST) athologist Signature POC Glucose 166 65 - 199 [facility] mg/dL [facility] Comment: [...] Organization Address City/State/[place] [address] POCT Glucose (07/09/2017 2:26 PM EST) athologist Signature POC Glucose 179 65 - 199 [place] [facility]HAORY[facility] mg/dL [facility] Comment: [...] City/[facility]/[place] [address] (ABNORMAL) POCT Glucose (07/09/2017 1:29 PM EST) athologist Signature POC Glucose 210 (H) 65 - 199 [place] [facility] mg/dL [facility] Comment: [...] City/[facility]/[place] [address] POCT Glucose (07/09/2017 12:20 PM EST) athologist Signature POC Glucose 172 65 - 199 [place] [facility] mg/dL [facility] Comment: [...] e Number [address] POCT Glucose (07/09/2017 11:24 AM EST) P athologist Signature POC Glucose 156 65 - 199 [facility] mg/dL [facility] Comment: Supplemental ranges: <140 mg/dL before meals <180 mg/dL all other times of the day Specimen Anatomical Collection Method Collection Time Receive d Time (Source) Location / / Volume Laterality Blood specimen 07/09/2017 11:24 7 (specimen) AM EST 11:24 AM EST Yaun Webber MD POINT OF CARE TEST ORDERABLE S Performing Organization Address City/State/ZIP Code Phon e Number [address] POCT Glucose (07/09/2017 11:11 AM EST) P athologist Signature POC Glucose 172 65 - 199 [facility] mg/dL [facility] Comment: [...] Organization Address City/State/[place] [address] [facility] [address] POCT Glucose (07/09/2017 10:08 AM EST) P athologist Signature POC Glucose 176 65 - 199 [place] ZHAORY[facility] mg/dL [facility] Comment: [...] e [place] [address] POCT Glucose (07/09/2017 8:02 AM EST) P athologist Signature POC Glucose 178 65 - 199 [facility] mg/dL [facility] Comment: Supplemental ranges: <140 mg/dL before meals <180 mg/dL all other times of the day Specimen Anatomical Collection Method Collection Time Receive d Time (Source) Location / / Volume Laterality Blood specimen 07/09/2017 8:02 AM 017 8:02 (specimen) EST AM EST Yuan Webber MD POINT OF CARE TEST ORDERABLE S Performing Organization Address City/State/[place] [address] (ABNORMAL) BLOOD GAS 2 ARTERIAL (07/09/2017 5:37 AM EST) Analysis Performed At Patho logist Time Signature pH Art 7.36 7.35 - [facility] 7.45 [facility] pCO2 Art 38 35 - 45 [facility] LABORATORY pO2 Art 79 (L) 85 - 104 [facility] LABORATORY HCO3 Art 20.9 20.0 - [facility] 26.0 [facility] mmol/L [facility] BE Art -4.6 (L) -3.0 - 3.0 [facility] mmol/L [facility] Hgb Blood Gas 10.5 (L) 13.7 - [facility] 16.5 gm/dL [facility] O2HB Art 93.8 (L) 94.0 - [facility] 97.0 % [facility] COHB Art 0.3 % [facility] FIO2 Art 40 % [facility] PF Ratio Art 198 [facility] Specimen Anatomical Collection Method Collection Time Receive d Time (Source) Location / / Volume Laterality Blood specimen 07/09/2017 5:37 AM 017 5:37 (specimen) EST AM EST Yuan Webber MD CHEMISTRY ORDERABLES Performing Organization Address City/[facility]/[place] [address] POCT Glucose (07/09/2017 3:27 AM EST) P athologist Signature POC Glucose 192 65 - 199 [facility] mg/dL [facility] Comment: Supplemental [...] City/[facility]/[place] [address] (ABNORMAL) Basic Metabolic Panel (non-fasting) (07/09/2017 2:30 AM EST) P athologist Signature Glucose Lvl 179 65 - 199 [facility] mg/dL [facility] [...] or in patients with acute kidney failure. [email or web address] [email or web address] Specimen Anatomical Collection Method Collection Time Receive d Time (Source) Location / / Volume Laterality Blood specimen Venous Draw / 07/09/2017 2:30 AM 2016 2:42 (specimen) Unknown EST AM EST Resulting Agency Comment Spec In Lab Yuan Webber MD CHEMISTRY ORDERABLES Performing Organization Address City/State/[place] [address] (ABNORMAL) Potassium (07/09/2017 2:30 AM EST) P athologist Signature Potassium 5.1 (H) 3.5 - 5.0 [facility] mmol/L [facility] Comment: Please note: ??Patients [...] Organization Address City/State/[place] [address] (ABNORMAL) Hemogram (07/09/2017 2:30 AM EST) Analysis Performed At Patho logist Time Signature WBC 12.5 (H) 4.0 - 9.5 [facility] x10(3)/[facility] LABORATORY RBC 3.38 (L) 4.58 - [facility] 5.54 [facility] x10(6)/[facility] LABORATORY Hemoglobin 10.1 (L) 13.7 - [facility] 16.5 gm/dL [facility] Hematocrit 30.3 (L) 40.5 - [facility] 48.5 % [facility] MCV 89.6 82.9 - [facility] 93.1 [facility] LABORATORY MCH 29.9 27.5 - [facility] 32.1 pg [facility] MCHC 33.3 32.0 - [facility] 35.7 gm/dL [facility] Platelets 127 (L) 145 - 357 [facility] x10(3)/[facility] LABORATORY RDWSD 49.3 (H) 36.0 - [place] RY[facility] 45.0 [facility] LABORATORY RDWCV 15.2 (H) 11.4 - [facility] 13.8 % [facility] MPV 9.9 7.6 - 12.9 [facility] LABORATORY nRBC % Auto 0.0 % [facility] nRBC Abs Auto 0.000 0.000 - [place] R[facility] 0.000 [facility] x10(3)/[facility] LABORATORY Specimen Anatomical Collection Method Collection Time Receive d Time (Source) Location / / Volume Laterality Blood specimen 07/09/2017 2:30 AM 017 2:41 (specimen) EST AM EST Resulting Agency Comment Spec In Lab Yuan Webber MD HEMATOLOGY ORDERABLES Performing Organization Address City/[facility]/ZIP Code Phon e Number [address] POCT Glucose (07/09/2017 2:10 AM EST) P athologist Signature POC Glucose 169 65 - 199 [place] [facility] mg/dL [facility] Comment: [...] City/[facility]/[place] [address] POCT Glucose (07/09/2017 1:01 AM EST) P athologist Signature POC Glucose 173 65 - 199 [place] [facility] mg/dL [facility] Comment: [...] Hospital Center/ZIP Code Phon e Number [address] Blood culture (07/09/2017 12:40 AM EST) [facility] Method Time Signature Blood Culture No growth [facility] at 5 days. [facility] Specimen Anatomical Collection Method Collection Time Receive d Time (Source) Location / / Volume Laterality Blood specimen STRUCTURE OF RIGHT 07/09/2017 12:40 3:58 (specimen) UPPER LIMB / AM EST AM EST Unknown Resulting Agency Comment Spec In Lab Yuan Webber MD MICROBIOLOGY - BLOOD ORDERAB LES Performing Organization Address City/State/[place] [address] Blood culture (07/09/2017 12:30 AM EST) [facility] aCon Method Time Signature Blood Culture No growth KATALINA DAVIS at 5 days. [facility] Specimen Anatomical Collection Method Collection Time Receive d Time (Source) Location / / Volume Laterality Blood specimen STRUCTURE OF LEFT 07/09/2017 12:30 1211/2016 3:59 (specimen) UPPER LIMB / AM EST AM EST Unknown Resulting Agency Comment Spec In Lab Yuan Webber MD MICROBIOLOGY - BLOOD ORDERAB LES Performing Organization Address City/[facility]/[place] [address] (ABNORMAL) Urinalysis Microscopic Exam (07/09/2017 12:05 AM EST) Analysis Performed At Patho logist Time Signature RBC UA 32 (H) 0 - 3 /HPF [facility] WBC UA 5 (H) 0 - 3 /HPF [facility] Squam Epith UA <1 <=4 /HPF [facility] Hyaline Cast 17 (H) 0 - 2 /LPF [facility] Gran Cast UA 1 (H) <=0 /LPF [facility] Uric Ac Bianca Rare (A) None /HPF [facility] Specimen (Source) Anatomical Collection Method Collection Time Re ceived Time Location / / Volume Laterality Urine specimen 07/09/2017 12:05 07/09/ 7 obtained via AM EST 12:39 AM EST indwelling urinary catheter (specimen) Resulting Agency Comment Spec In Lab Yuan Webber MD URINE ORDERABLES Performing Organization Address City/State/[place] [address] (ABNORMAL) Urinalysis with reflex Culture (07/09/2017 12:05 AM EST) [facility] aCon Method Time Signature Glucose UA Negative Negative KATALINA DAVIS mg/dL [facility] Protein UA 30 (A) Negative [facility] Bilirubin UA Negative Negative [facility] Comment: Clinical correlation required [...] [facility] Nitrite UA Negative Negative [facility] Leukocytes UA Negative Negative [facility] LABORATORY Appearance UA Hazy (A) Clear [facility] Spec Salix UA 1.025 1.002 - 1.030 [facility] Color UA Yellow Yellow [facility] [...] City/[facility]/[place] [address] POCT Glucose (07/08/2017 11:01 PM EST) P athologist Signature POC Glucose 191 65 - 199 [facility] mg/dL [facility] Comment: Supplemental [...] [place] [address] POCT Glucose (07/08/2017 10:04 PM EST) athologist Signature POC Glucose 198 65 - 199 [facility] mg/dL [facility] Comment: [...] e Number [address] Prepare Albumin 5% [...] e Number [address] POCT Glucose (07/08/2017 8:28 PM EST) athologist Signature POC Glucose 195 65 - 199 KATALINA RYAN mg/dL [facility] Comment: [...] Organization Address City/State/[place] [address] (ABNORMAL) POCT Glucose (07/08/2017 7:13 PM EST) P athologist Signature POC Glucose 220 (H) 65 - 199 [facility] mg/dL [facility] Comment: Supplemental [...] e Number [address] POCT Glucose (07/08/2017 5:04 PM EST) athologist Signature POC Glucose 147 65 - 199 [facility]dL [facility] Comment: Supplemental ranges: <140 mg/dL before meals <180 mg/dL all other times of the day Specimen Anatomical Collection Method Collection Time Receive d Time (Source) Location / / Volume Laterality Blood specimen 07/08/2017 5:04 PM 017 5:04 (specimen) EST PM EST Yuan Webber MD POINT OF CARE TEST ORDERABLE S Performing Organization Address City/State/[place] [address] (ABNORMAL) BLOOD GAS 2 ARTERIAL (07/08/2017 4:13 PM EST) Analysis Performed At Patho logist Time Signature pH Art 7.38 7.35 - [facility] 7.45 [facility] pCO2 Art 36 35 - 45 [facility] LABORATORY pO2 Art 91 85 - 104 [facility] LABORATORY HCO3 Art 20.9 20.0 - [facility] 26.0 [facility] mmol/L [facility] BE Art -4.2 (L) -3.0 - 3.0 [facility] mmol/L [facility] Hgb Blood Gas 11.7 (L) 13.7 - [facility] 16.5 gm/dL [facility] O2HB Art 95.1 94.0 - [facility] 97.0 % [facility] COHB Art 0.6 % [facility] [...] [facility] FIO2 Art 40 % [facility] PF Ratio Art 228 [facility] Specimen Anatomical Collection Method Collection Time Receive d Time (Source) Location / / Volume Laterality Blood specimen 07/08/2017 4:13 PM 017 4:13 (specimen) EST PM EST Yuan Webber MD CHEMISTRY ORDERABLES Performing Organization Address City/State/[place] [address] POCT Glucose (07/08/2017 4:01 PM EST) P athologist Signature POC Glucose 148 65 - 199 [facility] mg/dL [facility] Comment: Supplemental [...] e Number [address] POCT Glucose (07/08/2017 3:21 PM EST) athologist Signature POC Glucose 118 65 - 199 KATALINA ZHAORYAN mg/dL [facility] Comment: [...] e Number [address] POCT Glucose (07/08/2017 2:01 PM EST) athologist Signature POC Glucose 129 65 - 199 KATALINA ZHAORYAN mg/dL [facility] Comment: [...] Organization Address City/State/[place] [address] POCT Glucose (07/08/2017 11:53 AM EST) athologist Signature POC Glucose 156 65 - 199 KATALINA ZHAORYAN mg/dL [facility] Comment: [...] e Number [address] POCT Glucose (07/08/2017 11:04 AM EST) athologist Signature POC Glucose 181 65 - 199 [facility] mg/dL [facility] Comment: Supplemental [...] City/[facility]/[place] [address] (ABNORMAL) POCT Glucose (07/08/2017 9:24 AM EST) athologist Signature POC Glucose 203 (H) 65 - 199 [facility] mg/dL [facility] Comment: [...] Organization Address City/State/[place] [address] APTT (07/08/2017 8:40 AM EST) athologist Signature PTT 33 25 - 35 sec [facility] Comment: The recommended therapeutic range for fu ll dose, unfractionated heparin at [facility] is 80 ? 114 [...] City/[facility]/[place] [address] (ABNORMAL) Prothrombin Time (07/08/2017 [...] City/[facility]/[place] [address] (ABNORMAL) POCT Glucose (07/08/2017 7:38 AM EST) P athologist Signature POC Glucose 232 (H) 65 - 199 [facility] mg/dL [facility] Comment: Supplemental [...] City/[facility]/[place] [address] (ABNORMAL) POCT Glucose (07/08/2017 7:07 AM EST) athologist Signature POC Glucose 234 (H) 65 - 199 [facility] mg/dL [facility] Comment: Supplemental ranges: <140 mg/dL before meals <180 mg/dL all other times of the day Specimen Anatomical Collection Method Collection Time Receive d Time (Source) Location / / Volume Laterality Blood specimen 07/08/2017 7:07 AM 017 7:07 (specimen) EST AM EST Yuan Webber MD POINT OF CARE TEST ORDERABLE S Performing Organization Address City/State/[place] [address] (ABNORMAL) POCT Glucose (07/08/2017 6:04 AM EST) athologist Signature POC Glucose 225 (H) 65 - 199 [facility] mg/dL [facility] Comment: Supplemental ranges: <140 mg/dL before meals <180 mg/dL all other times of the day Specimen Anatomical Collection Method Collection Time Receive d Time (Source) Location / / Volume Laterality Blood specimen 07/08/2017 6:04 AM 017 6:04 (specimen) EST AM EST Yuan Webber MD POINT OF CARE TEST ORDERABLE S Performing Organization Address City/State/[place] [address] (ABNORMAL) POCT Glucose (07/08/2017 5:31 AM EST) athologist Signature POC Glucose 216 (H) 65 - 199 [facility] mg/dL [facility] Comment: [...] Organization Address City/State/[place] [address] (ABNORMAL) POCT Glucose (07/08/2017 4:52 AM EST) P athologist Signature POC Glucose 257 (H) 65 - 199 [facility] mg/dL [facility] Comment: Supplemental ranges: <140 mg/dL before meals <180 mg/dL all other times of the day Specimen Anatomical Collection Method Collection Time Receive d Time (Source) Location / / Volume Laterality Blood specimen 07/08/2017 4:52 AM 017 4:52 (specimen) EST AM EST Daphne Shahid MD POINT OF CARE TEST ORDERABLE S Performing Organization Address City/State/[place] [address] (ABNORMAL) BLOOD GAS 2 ARTERIAL (07/08/2017 4:04 AM EST) Analysis Performed At Patho logist Time Signature pH Art 7.30 (L) 7.35 - [facility] 7.45 [facility] pCO2 Art 41 35 - 45 [facility] LABORATORY pO2 Art 83 (L) 85 - 104 [facility] LABORATORY HCO3 Art 19.6 (L) 20.0 - [facility] 26.0 [facility] mmol/[facility] LABORATORY BE Art -6.8 (L) -3.0 - 3.0 [facility] mmol/L [facility] Hgb Blood Gas 12.2 (L) 13.7 - [facility] 16.5 gm/dL [facility] O2HB Art 93.5 (L) 94.0 - [facility] 97.0 % [facility] COHB Art 0.4 % [facility] [...] [facility] Comment: Noted by surgical instruments inspector. FIO2 Art 40 % [facility] LABORATORY PF Ratio Art 208 [facility] Specimen Anatomical Collection Method Collection Time Receive d Time (Source) Location / / Volume Laterality Blood specimen 07/08/2017 4:04 AM 017 4:04 (specimen) EST AM EST Daphne Shahid MD CHEMISTRY ORDERABLES Performing Organization Address City/[facility]/ZIP Code Phon e Number [address] Scan, Peripheral Blood [...] Number [address] (ABNORMAL) Differential, Automated (07/08/2017 4:00 AM EST) Patholo gist Method Time Signature Neutrophils % 85.4 % [facility] Neutr Abs (ANC) 16.07 (H) 1.70 - [facility] 6.10 [facility] x10(3)/[facility] L LABORATORY Lymphocytes % 3.5 % [facility] Lymphocytes Abs 0.6 (L) 0.9 - 3.2 [facility] x10(3)/[facility] LABORATORY Monocytes % 10.4 % [facility] Monocyte Abs 2.0 (H) 0.3 - 0.9 [facility] x10(3)/[facility] LABORATORY Eosinophils % 0.0 % [facility] Eosinophils Abs 0.0 0.0 - 0.4 [facility] x10(3)/[facility] LABORATORY Basophils % 0.1 % [facility] Basophils Abs 0.0 0.0 - 0.1 [facility] x10(3)/[facility] LABORATORY Immature Gran % 0.60 % [facility] [...] Gran Abs 0.12 (H) 0.00 - 0.04 x10(3)/[facility] LABORATORY Specimen Anatomical Collection Method Collection Time Receive d Time (Source) Location / / Volume Laterality Blood specimen 07/08/2017 4:00 AM 017 4:09 (specimen) EST AM EST Resulting Agency Comment Spec In Lab Yuan Webber MD HEMATOLOGY ORDERABLES Performing Organization Address City/State/[place] [address] (ABNORMAL) Hemogram (07/08/2017 4:00 AM EST) Analysis Performed At Patho logist Time Signature WBC 18.8 (H) 4.0 - 9.5 [facility] x10(3)/[facility] LABORATORY RBC 4.00 (L) 4.58 - [facility] 5.54 [facility] x10(6)/[facility] LABORATORY Hemoglobin 11.9 (L) 13.7 - [facility] 16.5 gm/dL [facility] Hematocrit 35.9 (L) 40.5 - KATALINA DAVIS 48.5 % [facility] MCV 89.8 82.9 - [facility] 93.1 [facility] LABORATORY MCH 29.8 27.5 - KATALINA OLIVASCK 32.1 pg [facility] MCHC 33.1 32.0 - KATALINA DAVIS 35.7 gm/dL [facility] Platelets 232 145 - 357 [facility] x10(3)/[facility] LABORATORY RDWSD 47.6 (H) 36.0 - KATALINA DAVIS 45.0 [facility] LABORATORY RDWCV 14.5 (H) 11.4 - [facility] 13.8 % [facility] MPV 9.5 7.6 - 12.9 [facility] LABORATORY nRBC % Auto 0.0 % [facility] nRBC Abs Auto 0.000 0.000 - [facility] 0.000 [facility] x10(3)/[facility] LABORATORY Specimen Anatomical Collection Method Collection Time Receive d Time (Source) Location / / Volume Laterality Blood specimen 07/08/2017 4:00 AM 017 4:09 (specimen) EST AM EST Resulting Agency Comment Spec In Lab Yuan Webber MD HEMATOLOGY ORDERABLES Performing Organization Address City/State/ZIP Code Phon e Number [place] [id number] (ABNORMAL) Electrolytes panel (07/08/2017 4:00 AM EST) P athologist Signature Sodium 139 135 - 145 [facility] mmol/L [facility] Potassium 4.7 3.5 - 5.0 [facility] mmol/L [facility] Comment: result rechecked-JLK Please note: ??Patients with WBC >100,00 0 may have falsely elevated Potassium levels. ??For accurate Potassium quantif ication in these patients send serum separator tube (gold top) for subsequent determinations. ??Contact the Clinical Chemistry Laboratory if there are any qu estions. Chloride 104 98 - 107 mmol/L [facility] CO2 21 (L) 22 - 31 mmol/L [facility] Anion Gap 14 5 - 15 mmol/L KATALINA RYAN [facility] LABORATORY Specimen Anatomical Collection Method Collection Time Receive d Time (Source) Location / / Volume Laterality Blood specimen 07/08/2017 4:00 AM 017 4:10 (specimen) EST AM EST Resulting Agency Comment Spec In Lab Yuan Webber MD CHEMISTRY ORDERABLES Performing Organization Address City/State/[place] [address] (ABNORMAL) Cardiac Enzymes (LEB/CGP) (07/08/2017 4:00 AM EST) P athologist Signature Troponin-T 1.88 (H) 0.00 - [facility] 0.00 ng/mL [facility] Comment: The 99th percentile for Troponin T is le ss than 0.01 ng/mL, any detectable cTnT concentration using this assay should be considered elevated. According to the third universal definit ion of myocardial infarction the following criteria with a clinical prese ntation consistent with acute myocardial ischemia meets the diagnosis for a myocardial infarction (ID). Detection of a rise and/or fall of [...] additional sample may be indicated. Reference: Third [place] Definition of Myocardial Infarction. Journal of the [place] [employer] 2012;60:1581-98 CK, Total 413 [...] Number [address] (ABNORMAL) Glucose, fasting (07/08/2017 4:00 AM EST) P athologist Signature Glucose 287 (H) 65 - 99 [facility] Fasting mg/dL [facility] Comment: ?Fasting* Glucose Interpretive [...] City/[facility]/[place] [address] (ABNORMAL) Creatinine (07/08/2017 4:00 AM EST) Analysis Performed At Patho logist Time Signature Creatinine 1.55 (H) 0.80 - [facility] 1.50 mg/dL [facility] Estimated GFR 44 (L) >=60 [facility] Comment: The reported eGFR should be multiplied b y 1.2 for patients. The MDRD is not an appropriate measure o f renal function for patients with body mass extremes or in patients with acute kidney failure. http://[employer]/DHadelitakdep http://[employer]/DHMCnkf Specimen Anatomical Collection Method Collection Time Receive d Time (Source) Location / / Volume Laterality Blood specimen 07/08/2017 4:00 AM 017 4:09 (specimen) EST AM EST Resulting Agency Comment Spec In Lab Yuan Webber MD CHEMISTRY ORDERABLES Performing Organization Address City/[facility]/ZIP Code Phon e Number [address] BUN (07/08/2017 4:00 AM EST) P athologist Signature BUN 16 10 - 20 KATALINA RYAN mg/dL [facility] Specimen Anatomical Collection Method Collection Time Receive d Time (Source) Location / / Volume Laterality Blood specimen 07/08/2017 4:00 AM 017 4:09 (specimen) EST AM EST Resulting Agency Comment Spec In Lab Yuan Webber MD CHEMISTRY ORDERABLES Performing Organization Address City/[facility]/[place] [address] (ABNORMAL) POCT Glucose (07/08/2017 3:00 AM EST) athologist Signature POC Glucose 273 (H) 65 - 199 [facility] mg/dL [facility] Comment: [...] Hospital Center/ZIP Code Phon e Number [address] (ABNORMAL) POCT Glucose (07/08/2017 1:57 AM EST) P athologist Signature POC Glucose 288 (H) 65 - 199 [facility] mg/dL [facility] Comment: [...] City/[facility]/[place] [address] (ABNORMAL) POCT Glucose (07/08/2017 1:01 AM EST) athologist Signature POC Glucose 315 (H) 65 - 199 [facility] mg/dL [facility] Comment: Supplemental [...] City/[facility]/[place] [address] (ABNORMAL) BLOOD GAS 2 ARTERIAL (07/08/2017 12:09 AM EST) athologist Signature pH Art 7.26 7.35 - [facility] (Critical) 7.45 [facility] Comment: Noted by surgical instruments inspector. pCO2 Art 41 35 - [...] [facility] Comment: Noted by surgical instruments inspector. FIO2 Art 40 % [facility] Organization Address City/State/[place] [address] (ABNORMAL) POCT Glucose (07/07/2017 10:56 PM EST) P athologist Signature POC Glucose 292 (H) 65 - 199 [facility] mg/dL [facility] Comment: Supplemental [...] Organization Address City/State/[place] [address] (ABNORMAL) BLOOD GAS 2 ARTERIAL (07/07/2017 10:04 PM EST) athologist Signature pH Art 7.22 7.35 - [facility] (Critical) 7.45 [facility] Comment: Noted by surgical instruments inspector. pCO2 Art 42 35 - [...] [facility] Comment: Noted by surgical instruments inspector. FIO2 Art 40 % [facility] LABORATORY PF Ratio Art 235 [facility] Specimen Anatomical Collection Method Collection Time Receive d Time (Source) Location / / Volume Laterality Blood specimen 07/07/2017 10:04 7 (specimen) PM EST 10:04 PM EST Daphne Shahid MD CHEMISTRY ORDERABLES Performing Organization Address City/[facility]/ZIP Code Phon e Number [address] (ABNORMAL) Hemoglobin (07/07/2017 10:00 PM EST) P athologist Signature Hemoglobin 12.8 (L) 13.7 - [facility] 16.5 gm/dL [facility] Specimen Anatomical Collection Method Collection Time Receive d Time (Source) Location / / Volume Laterality Blood specimen 07/07/2017 10:00 7 (specimen) PM EST 10:13 PM EST Resulting Agency Comment Spec In Lab Yuan Webber MD HEMATOLOGY ORDERABLES Performing Organization Address City/[facility]/[place] [address] (ABNORMAL) Potassium (07/07/2017 10:00 PM EST) P athologist Signature Potassium 3.4 (L) 3.5 - 5.0 [facility] mmol/L [facility] Comment: Please note: ??Patients [...] Organization Address City/State/[place] [address] (ABNORMAL) POCT Glucose (07/07/2017 8:49 PM EST) P athologist Signature POC Glucose 241 (H) 65 - 199 [facility] mg/dL [facility] Comment: Supplemental [...] City/[facility]/[place] [address] Prepare Albumin 5% in [...] City/[facility]/[place] [address] EKG 12 Lead (07/07/2017 [...] MUSE SYSTEM (Bezet) Calculated P [place] 52 degrees MUSE SYSTEM Calculated R [place] -40 degrees MUSE SYSTEM Calculated T [place] 39 degrees MUSE SYSTEM INTERPRETATION Normal sinus [...] athologist Signature pH Art 7.21 7.35 - [facility] (Critical) 7.45 [facility] Comment: Noted by surgical instruments inspector. pCO2 Art 50 (H) 35 [...] [facility] Comment: Noted by surgical instruments inspector. Please note: Patients with WBC [...] [facility] Comment: Noted by surgical instruments inspector. FIO2 Art 100 % [facility] LABORATORY PF Ratio Art 238 [facility] Specimen Anatomical Collection Method Collection Time Receive d Time (Source) Location / / Volume Laterality Blood specimen 07/07/2017 6:57 PM 017 6:57 (specimen) EST PM EST Daphne Shahid MD CHEMISTRY ORDERABLES Performing Organization Address City/State/[place] [address] (ABNORMAL) BLOOD GAS 2 ARTERIAL (07/07/2017 5:31 PM EST) P athologist Signature pH Art 7.29 7.35 - [facility] (Critical) 7.45 [facility] Comment: Noted by surgical instruments inspector. pCO2 Art 48 (H) 35 [...] Hospital Center/ZIP Code Phon e Number [address] Fibrinogen (07/07/2017 5:30 PM EST) P athologist Signature Fibrinogen 224 180 - 510 [facility] mg/dL [facility] Comment: Called by: JEET, [...] ORDERABLES Performing Organization Address City/[facility]/ZIP [facility] Phon e Number [address] APTT (07/07/2017 5:30 PM EST) P athologist Signature PTT 30 25 - 35 sec [facility] Comment: The recommended therapeutic range for fu ll dose, unfractionated heparin at [facility] is 80 ? 114 [...] HEMATOLOGY ORDERABLES Performing Organization Address City/[facility] [place] [address] (ABNORMAL) Prothrombin Time (07/07/2017 [...] HEMATOLOGY ORDERABLES Performing Organization Address City/[facility] [place] [address] (ABNORMAL) Hemogram (07/07/2017 5:30 PM EST) P athologist Signature WBC 19.6 (H) 4.0 - 9.5 [facility] x10(3)/[facility] LABORATORY RBC 3.08 (L) 4.58 - [facility] 5.54 [facility] x10(6)/[facility] LABORATORY Hemoglobin 9.2 (L) 13.7 - [facility] 16.5 gm/dL [facility] LABORATORY Hematocrit 28.0 (L) 40.5 - [facility] 48.5 % [facility] LABORATORY Comment: This result has been called to MONICA MORAN by DONALD GROSSMAN on 07 07 2017 at 1759, and has been read back. MCV 90.9 82.9 - 93.1 [facility] LABORATORY MCH 29.9 27.5 - 32.1 pg [facility] LABORATORY MCHC 32.9 32.0 - 35.7 gm/dL [facility] LABOR[facility] Platelets 155 145 - 357 x10(3)/[facility] LABORATORY RDWSD 46.5 (H) 36.0 - 45.0 [facility] LABORATORY RDWCV 14.1 (H) 11.4 - 13.8 % [facility] LABORATORY MPV 9.5 7.6 - 12.9 [facility] LABORATORY nRBC % Auto 0.0 % [facility] LABORATORY nRBC Abs Auto 0.000 0.000 - 0.000 x10(3)/[facility] LABORATORY Specimen Anatomical Collection Method Collection Time Receive d Time (Source) Location / / Volume Laterality Blood specimen 07/07/2017 5:30 PM 017 5:34 (specimen) EST PM EST Resulting Agency Comment Spec In Lab Yifan Perez MD HEMATOLOGY ORDERABLES Performing Organization Address City/State/[place] [address] Prepare Platelets, Apheresis (07/07/2017 5:00 PM EST) P athologist Signature Dispensed? Yes [facility] LABORATORY Specimen Anatomical Collection Method Collection Time Receive d Time (Source) Location / / Volume Laterality Blood specimen 07/07/2017 5:00 PM 017 4:58 (specimen) EST PM EST Daphne Shahid MD BLOOD BANK ORDERABLES Performing Organization Address City/State/[place] [address] Platelet count (07/07/2017 4:55 PM EST) P athologist Signature Platelets 177 145 - 357 KATALINA DAVIS x10(3)/[facility] LABORATORY Plat Immature 1.5 0.0 - 7.4 K[facility]ALINA DAVIS % % [facility] LABORATORY Comment: Limitation of the Immature Platelet Frac tion (IPF)-May be less reliable when the platelet count is less than 93e225/u L due to statistical imprecision. The IPF [...] in a decreased state of production. References: [employer] The Clinical Value of the Immature Platelet Fraction (IPF) in Cell Recovery Document Number 10-1143 12/2010 [employer] The Role of the Imm ature [...] Organization Address City/State/[place] [address] (ABNORMAL) Hemoglobin and Hematocrit, blood (07/07/2017 4:55 PM EST) P athologist Signature Hemoglobin 9.1 (L) 13.7 - 16.5 KATALINA DAVIS gm/dL [facility] LABORATORY Comment: This result has [...] Organization Address City/State/[place] [address] (ABNORMAL) BLOOD GAS 2 ARTERIAL (07/07/2017 4:38 PM EST) Analysis Performed At Patho logist Time Signature pH Art 7.37 7.35 - [facility] 7.45 [facility] LABORATORY pCO2 Art 44 35 - 45 [facility] mmHg [facility] LABORATORY pO2 Art 322 (H) 85 - 104 [facility] LABORATORY HCO3 Art 24.9 20.0 - [facility] 26.0 [facility] mmol/L [facility] LABORATORY BE Art -0.4 -3.0 - 3.0 [facility] mmol/L [facility] LABORATORY Hgb Blood Gas 10.1 (L) 13.7 - [facility] 16.5 gm/dL [facility] LABORATORY O2HB Art 98.7 (H) 94.0 - [facility] 97.0 % [facility] LABORATORY COHB Art 0.1 % [facility] [...] mmol/L [facility] Comment: Noted by surgical instruments inspector. Note: ??Total bilirubin higher than [...] Organization Address City/State/[place] [address] (ABNORMAL) BLOOD GAS 2 VENOUS (07/07/2017 4:06 PM EST) Analysis Performed At Patho logist Time Signature pH Cody 7.31 (L) 7.32 - [facility] 7.42 [facility] LABORATORY pCO2 Cody 47 41 - 51 [facility] LABORATORY pO2 Cody 53 (H) 25 - 40 [facility] LABORATORY HCO3 Cody 22.7 mmol/L [facility] LABORATORY BE Cody -3.7 mmol/L [facility] LABOR[facility]ORY Hgb Blood Gas 10.2 (L) 13.7 - [facility] 16.5 gm/dL [facility] LABORATORY O2HB Cody 81.0 % [facility] [...] mmol/L [facility] Comment: Noted by surgical instruments inspector. Note: ??Total bilirubin higher than [...] mmol/L [facility] LABOR[facility] BGas Source Venous [facility] LABORATORY Specimen Anatomical Collection Method Collection Time Receive d Time (Source) Location / / Volume Laterality Blood specimen 07/07/2017 4:06 PM 017 4:06 (specimen) EST PM EST Daphne Shahid MD CHEMISTRY ORDERABLES Performing Organization Address City/State/[place] [address] (ABNORMAL) BLOOD GAS 2 ARTERIAL (07/07/2017 4:05 PM EST) Analysis Performed At Patho logist Time Signature pH Art 7.36 7.35 - [facility] 7.45 [facility] LABORATORY pCO2 Art 40 35 - 45 [facility] mmHg [facility] LABORATORY pO2 Art 282 (H) 85 - 104 [facility] LABORATORY HCO3 Art 22.1 20.0 - [facility] 26.0 [facility] mmol/L [facility] LABORATORY BE Art -3.4 (L) -3.0 - 3.0 [facility] mmol/L [facility] LABORATORY Hgb Blood Gas 10.2 (L) 13.7 - [facility] 16.5 gm/dL [facility]OR[facility]ORY O2HB Art 98.4 (H) 94.0 - [facility] 97.0 % [facility] LABORATORY COHB Art 0.3 % [facility] [...] mmol/L [facility] Comment: Noted by surgical instruments inspector. Note: ??Total bilirubin higher than [...] Organization Address City/State/[place] [address] (ABNORMAL) BLOOD GAS 2 ARTERIAL (07/07/2017 2:29 PM EST) Analysis Performed At Patho logist Time Signature pH Art 7.43 7.35 - [facility] 7.45 [facility] LABORATORY pCO2 Art 36 35 - 45 [facility] LABORATORY pO2 Art 221 (H) 85 - 104 [facility] LABORATORY HCO3 Art 23.2 20.0 - [facility] 26.0 [facility] mmol/[facility] LABORATORY BE Art -1.2 -3.0 - 3.0 [facility] mmol/L [facility] LABORATORY Hgb Blood Gas 13.9 13.7 - [facility] 16.5 gm/dL [facility] O2HB Art 97.8 (H) 94.0 - [facility] 97.0 % [facility] LABORATORY COHB Art 1.1 % [facility] [...] Organization Address City/State/[place] [address] Prepare Coag Factors (Non-Hemophilia) [...] e Number [address] Prepare RBC (07/07/2017 1:10 PM EST) P athologist Signature Dispensed? Yes [facility] LABORATORY Specimen Anatomical Collection Method Collection Time Receive d Time (Source) Location / / Volume Laterality Blood specimen 07/07/2017 1:10 PM 017 1:05 (specimen) EST PM EST Daphne Shahid MD BLOOD BANK ORDERABLES Performing Organization Address City/State/[place] [address] POCT Glucose (07/07/2017 11:56 AM EST) P athologist Signature POC Glucose 188 65 - 199 [facility] mg/dL [facility]ORY Comment: [...] City/[facility]/[place] [address] POCT Glucose (07/07/2017 11:05 AM EST) P athologist Signature POC Glucose 168 65 - 199 [facility] mg/dL [facility]OR[facility]ORY Comment: [...] Organization Address City/State/[place] [address] POCT Glucose (07/07/2017 10:02 AM EST) athologist Signature POC Glucose 191 65 - 199 KATALINA ZHAORYAN mg/dL [facility] LABORATORY Comment: [...] e Number [address] POCT Glucose (07/07/2017 7:53 AM EST) athologist Signature POC Glucose 178 65 - 199 [facility] mg/dL [facility] LABORATORY Comment: [...] Organization Address City/State/[place] [address] POCT Glucose (07/07/2017 7:03 AM EST) athologist Signature POC Glucose 188 65 - 199 [facility] mg/dL [facility]OR[facility]ORY Comment: [...] Organization Address City/State/[place] [address] (ABNORMAL) POCT Glucose (07/07/2017 6:17 AM EST) athologist Signature POC Glucose 207 (H) 65 - 199 [facility] mg/dL [facility] LABORATORY Comment: Supplemental [...] City/State/ZIP Code Phon e Number [place] [id number] Differential, Automated (07/07/2017 5:15 AM EST) [facility] Neutrophils % 69.7 % [facility] LABORATORY Neutr Abs (ANC) 5.32 1.70 - [facility] 6.10 [facility] x10(3)/[facility] LABORATORY Lymphocytes % 16.3 % [facility] LABORATORY Lymphocytes Abs 1.2 0.9 - 3.2 [facility] x10(3)/[facility] LABORATORY Monocytes % 10.5 % [facility] LABORATORY Monocyte Abs 0.8 0.3 - 0.9 [facility] x10(3)[facility] LABORATORY Eosinophils % 2.5 % [facility] LABORATORY Eosinophils Abs 0.2 0.0 - 0.4 [facility] x10(3)/[facility] LABORATORY Basophils % 0.7 % [facility] LABORATORY Basophils Abs 0.0 0.0 - 0.1 [facility] x10(3)/[facility] LABORATORY Immature Gran % 0.30 % [...] Melisa Gran Abs 0.02 0.00 - 0.04 x10(3)/[facility] LABORATORY Specimen Anatomical Collection Method Collection Time Receive d Time (Source) Location / / Volume Laterality Blood specimen 07/07/2017 5:15 AM 017 5:34 (specimen) EST AM EST Resulting Agency Comment Spec In Lab Daphne Shahid MD HEMATOLOGY ORDERABLES Performing Organization Address City/[facility]/[place] [address] (ABNORMAL) Hemogram (07/07/2017 5:15 AM EST) Analysis Performed At Patho logist Time Signature WBC 7.6 4.0 - 9.5 [facility] x10(3)/[facility] LABORATORY RBC 4.82 4.58 - [facility] 5.54 [facility] x10(6)/[facility] LABORATORY Hemoglobin 14.4 13.7 - [facility] 16.5 gm/dL [facility] LABORATORY Hematocrit 42.1 40.5 - [facility] 48.5 % [facility]ATORY MCV 87.3 82.9 - [facility] 93.1 [facility] LABORATORY MCH 29.9 27.5 - [facility] 32.1 pg [facility] LABORATORY MCHC 34.2 32.0 - [facility] 35.7 gm/dL [facility] LABORATORY Platelets 188 145 - 357 [facility] x10(3)/[facility] LABORATORY RDWSD 45.1 (H) 36.0 - [facility] 45.0 [facility] LABORATORY RDWCV 14.3 (H) 11.4 - [facility] 13.8 % [facility] LABORATORY MPV 9.4 7.6 - 12.9 [facility] LABORATORY nRBC % Auto 0.0 % [facility] LABORATORY nRBC Abs Auto 0.000 0.000 - [facility] 0.000 [facility] x10(3)/[facility] LABORATORY Specimen Anatomical Collection Method Collection Time Receive d Time (Source) Location / / Volume Laterality Blood specimen 07/07/2017 5:15 AM 017 5:34 (specimen) EST AM EST Resulting Agency Comment Spec In Lab Daphne Shahid MD HEMATOLOGY ORDERABLES Performing Organization Address City/State/[place] [address] (ABNORMAL) APTT (07/07/2017 5:15 AM EST) athologist Signature PTT 69 (H) 25 - 35 sec [facility]ORATORY Comment: The recommended therapeutic range for fu ll dose, unfractionated heparin at [facility] is 80 ? 114 [...] City/[facility]/[place] [address] Magnesium (07/07/2017 5:15 AM EST) athologist Signature Magnesium 0.94 0.69 - 1.07 [facility] mmol/L [facility] LABORATORY Specimen Anatomical Collection Method Collection Time Receive d Time (Source) Location / / Volume Laterality Blood specimen 07/07/2017 5:15 AM 017 5:34 (specimen) EST AM EST Resulting Agency Comment Spec In Lab Daphne Shahid MD CHEMISTRY ORDERABLES Performing Organization Address City/[facility]/[place] [address] (ABNORMAL) Basic Metabolic Panel (non-fasting) (07/07/2017 5:15 AM EST) P athologist Signature Glucose Lvl 203 (H) 65 - 199 [facility] mg/dL [facility] LABORATORY [...] or in patients with acute kidney failure. [email or web address] [email or web address] Specimen Anatomical Collection Method Collection Time Receive d Time (Source) Location / / Volume Laterality Blood specimen 07/07/2017 5:15 AM 017 5:34 (specimen) EST AM EST Resulting Agency Comment Spec In Lab Daphne Shahid MD CHEMISTRY ORDERABLES Performing Organization Address City/State/[place] [address] (ABNORMAL) Cardiac Enzymes (LEB/CGP) (07/07/2017 5:15 AM EST) P athologist Signature Troponin-T 2.07 (H) 0.00 - [facility] 0.00 ng/mL [facility]OR[facility] Comment: The 99th percentile for Troponin T is le ss than 0.01 ng/mL, any detectable cTnT concentration using this assay should be considered elevated. According to the third universal definit ion of myocardial infarction the following criteria with a clinical prese ntation consistent with acute myocardial ischemia meets the diagnosis for a myocardial infarction (ID). Detection of a rise and/or fall of [...] additional sample may be indicated. Reference: Third [place] Definition of Myocardial Infarction. Journal of the [place] [employer] 2012;60:1581-98 CK, Total 88 0 - 200 unit/L [facility] LABORATORY Specimen Anatomical Collection Method Collection Time Receive d Time (Source) Location / / Volume Laterality Blood specimen 07/07/2017 5:15 AM 017 5:34 (specimen) EST AM EST Resulting Agency Comment Spec In Lab Daphne Shahid MD CHEMISTRY ORDERABLES Performing Organization Address City/[facility]/ZIP Code Phon e Number [address] POCT Glucose (07/07/2017 5:01 AM EST) athologist Signature POC Glucose 182 65 - 199 [facility] mg/dL [facility] Comment: Supplemental ranges: <140 mg/dL before meals <180 mg/dL all other times of the day Specimen Anatomical Collection Method Collection Time Receive d Time (Source) Location / / Volume Laterality Blood specimen 07/07/2017 5:01 AM 017 5:01 (specimen) EST AM EST Daphne Shahid MD POINT OF CARE TEST ORDERABLE S Performing Organization Address City/[facility]/ZIP [facility] Phon e Number [address] POCT Glucose (07/07/2017 4:08 AM EST) athologist Signature POC Glucose 199 65 - 199 [facility] mg/dL [facility] Comment: Supplemental [...] e Number [address] POCT Glucose (07/07/2017 3:03 AM EST) athologist Signature POC Glucose 188 65 - 199 KATALINA RYAN mg/dL [facility] LABORATORY Comment: [...] Organization Address City/State/[place] [address] (ABNORMAL) POCT Glucose (07/07/2017 2:08 AM EST) athologist Signature POC Glucose 200 (H) 65 - 199 KATALINA RYAN mg/dL [facility]OR[facility] Comment: [...] Number [address] (ABNORMAL) POCT Glucose (07/07/2017 1:31 AM EST) athologist Signature POC Glucose 209 (H) 65 - 199 KATALINA RYAN mg/dL [facility]OR[facility] Comment: [...] Organization Address City/State/[place] [address] XR Chest PA or [...] Signature POC Glucose 161 65 - 199 [facility] mg/dL [facility] Comment: Supplemental ranges: <140 mg/dL before meals <180 mg/dL all other times of the day Specimen Anatomical Collection Method Collection Time Receive d Time (Source) Location / / Volume Laterality Blood specimen 07/07/2017 12:07 7 (specimen) AM EST 12:07 AM EST Daphne Shahid MD POINT OF CARE TEST ORDERABLE S Performing Organization Address City/State/[place] [address] (ABNORMAL) APTT (07/07/2017 12:00 AM EST) athologist Signature PTT 103 (H) 25 - 35 sec [facility] Comment: The recommended therapeutic range for fu ll dose, unfractionated heparin at [facility] is 80 ? 114 [...] City/[facility]/[place] [address] POCT Glucose (07/06/2017 9:55 PM EST) athologist Signature POC Glucose 109 65 - 199 [facility] mg/dL [facility] Comment: [...] City/[facility]/[place] [address] POCT Glucose (07/06/2017 9:04 PM EST) athologist Signature POC Glucose 120 65 - 199 [facility] mg/dL [facility]OR[facility] Comment: [...] City/[facility]/[place] [address] POCT Glucose (07/06/2017 7:45 PM EST) athologist Signature POC Glucose 158 65 - 199 [facility] mg/dL [facility] Comment: Supplemental [...] City/[facility]/[place] [address] Potassium (07/06/2017 7:40 PM EST) athologist Signature Potassium 3.9 3.5 - 5.0 [facility] mmol/L [facility] Comment: Please note: ??Patients [...] City/[facility]/[place] [address] (ABNORMAL) Cardiac Enzymes (LEB/CGP) (07/06/2017 7:40 PM EST) athologist Signature Troponin-T 2.27 (H) 0.00 - [facility]ALINA OLIVASCK 0.00 ng/mL [facility] Comment: The 99th percentile for Troponin T is le ss than 0.01 ng/mL, any detectable cTnT concentration using this assay should be considered elevated. According to the third universal definit ion of myocardial infarction the following criteria with a clinical prese ntation consistent with acute myocardial ischemia meets the diagnosis for a myocardial infarction (ID). Detection of a rise and/or fall of [...] additional sample may be indicated. Reference: Third [place] Definition of Myocardial Infarction. Journal of the [place] [employer] 2012;60:1581-98 CK, Total 93 0 - 200 unit/L [facility] LABORATORY Specimen Anatomical Collection Method Collection Time Receive d Time (Source) Location / / Volume Laterality Blood specimen 07/06/2017 7:40 PM 017 7:52 (specimen) EST PM EST Resulting Agency Comment Spec In Lab Daphne Shahid MD CHEMISTRY ORDERABLES Performing Organization Address City/State/[place] [address] (ABNORMAL) POCT Glucose (07/06/2017 7:13 PM EST) athologist Signature POC Glucose 200 (H) 65 - 199 [facility] mg/dL [facility] Comment: Supplemental [...] City/[facility]/[place] [address] (ABNORMAL) APTT (07/06/2017 6:15 PM EST) athologist Signature PTT 94 (H) 25 - 35 sec [facility] Comment: The recommended therapeutic range for fu ll dose, unfractionated heparin at [facility] is 80 ? 114 [...] City/[facility]/[place] [address] (ABNORMAL) POCT Glucose (07/06/2017 6:03 PM EST) athologist Signature POC Glucose 236 (H) 65 - 199 [facility] mg/dL [facility] Comment: [...] City/[facility]/[place] [address] (ABNORMAL) POCT Glucose (07/06/2017 5:01 PM EST) athologist Signature POC Glucose 235 (H) 65 - 199 [facility] mg/dL [facility] Comment: [...] Organization Address City/State/[place] [address] (ABNORMAL) POCT Glucose (07/06/2017 4:06 PM EST) athologist Signature POC Glucose 202 (H) 65 - 199 KATALINA RYAN mg/dL [facility] Comment: [...] Organization Address City/State/[place] [address] POCT Glucose (07/06/2017 2:59 PM EST) athologist Signature POC Glucose 178 65 - 199 KATALINA RYAN mg/dL [facility] Comment: [...] Organization Address City/State/[place] [address] (ABNORMAL) Cardiac Enzymes (LEB/CGP) (07/06/2017 2:10 PM EST) athologist Signature Troponin-T 2.34 (H) 0.00 - [facility] 0.00 ng/mL [facility] Comment: The 99th percentile for Troponin T is le ss than 0.01 ng/mL, any detectable cTnT concentration using this assay should be considered elevated. According to the third universal definit ion of myocardial infarction the following criteria with a clinical prese ntation consistent with acute myocardial ischemia meets the diagnosis for a myocardial infarction (ID). Detection of a rise and/or fall of [...] additional sample may be indicated. Reference: Third [place] Definition of Myocardial Infarction. Journal of the [place] [employer] 2012;60:1581-98 CK, Total 101 0 - 200 unit/L [facility] Specimen Anatomical Collection Method Collection Time Receive d Time (Source) Location / / Volume Laterality Blood specimen 07/06/2017 2:10 PM 017 2:26 (specimen) EST PM EST Resulting Agency Comment Spec In Lab Daphne Shahid MD CHEMISTRY ORDERABLES Performing Organization Address City/State/[place] [address] POCT Glucose (07/06/2017 2:08 PM EST) P athologist Signature POC Glucose 192 65 - 199 [facility] mg/dL [facility] Comment: Supplemental [...] e Number [address] POCT Glucose (07/06/2017 1:04 PM EST) P athologist Signature POC Glucose 162 65 - 199 [facility] mg/dL [facility] Comment: [...] Hospital Center/ZIP Code Phon e Number [address] POCT Glucose (07/06/2017 12:05 PM EST) athologist Signature POC Glucose 196 65 - 199 [facility] mg/dL [facility] Comment: [...] Organization Address City/State/[place] [address] EKG 12 Lead (07/06/2017 [...] MUSE SYSTEM (Bezet) Calculated P [place] 36 degrees MUSE SYSTEM Calculated R [place] -19 degrees MUSE SYSTEM Calculated T [place] 104 degrees MUSE SYSTEM INTERPRETATION Normal sinus rhythm MUSE SYSTEM 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) ST & T wave abnormality, consider lateral ischemia Abnormal ECG When compared with ECG of 05-JUL-2017 20:39, No significant change was found Confirmed by MD Verma Gregory A. ([id number]) on 07/06/2017 5:07:33 PM Specimen Anatomical Collection [...] City/[facility]/[place] [address] Antibody screen (07/06/2017 12:00 PM EST) [facility] Method Time Signature Ab Screen Negative [facility] LABORATORY Expires at 07/09/2017 [facility] 235 on: [facility] LABORATORY Specimen Anatomical Collection Method Collection Time Receive d Time (Source) Location / / Volume Laterality Blood specimen 07/06/2017 12:00 7 (specimen) PM EST 12:24 PM EST Resulting Agency Comment Spec In Lab Daphne Shahid MD BLOOD BANK ORDERABLES Performing Organization Address City/[facility]/[place] [address] ABO/Rh Typing (07/06/2017 12:00 [...] Organization Address City/State/[place] [address] Prothrombin Time (07/06/2017 11:24 [...] City/[facility]/[place] [address] (ABNORMAL) APTT (07/06/2017 11:24 AM EST) athologist Signature PTT 52 (H) 25 - 35 sec [facility] Comment: The recommended therapeutic range for fu ll dose, unfractionated heparin at [facility] is 80 ? 114 [...] Organization Address City/State/[place] [address] POCT Glucose (07/06/2017 11:02 AM EST) athologist Signature POC Glucose 187 65 - 199 [facility] mg/dL [facility] Comment: [...] e Number [address] POCT Glucose (07/06/2017 10:18 AM EST) athologist Signature POC Glucose 193 65 - 199 [facility] mg/dL [facility] Comment: [...] e Number [address] POCT Glucose (07/06/2017 9:25 AM EST) athologist Signature POC Glucose 182 65 - 199 [place] mg/dL [facility] Comment: [...] Organization Address City/State/[place] [address] (ABNORMAL) Cardiac Enzymes (LEB/CGP) (07/06/2017 8:10 AM EST) athologist Signature Troponin-T 2.26 (H) 0.00 - [facility] 0.00 ng/mL [facility] Comment: The 99th percentile for Troponin T is le ss than 0.01 ng/mL, any detectable cTnT concentration using this assay should be considered elevated. According to the third universal definit ion of myocardial infarction the following criteria with a clinical prese ntation consistent with acute myocardial ischemia meets the diagnosis for a myocardial infarction (ID). Detection of a rise and/or fall of [...] additional sample may be indicated. Reference: Third [place] Definition of Myocardial Infarction. Journal of the [place] College [employer]iology 2012;60:1581-98 CK, Total 124 0 - 200 unit/L [facility]OR[facility] Specimen Anatomical Collection Method Collection Time Receive d Time (Source) Location / / Volume Laterality Blood specimen 07/06/2017 8:10 AM 017 8:23 (specimen) EST AM EST Resulting Agency Comment Spec In Lab Daphne Shahid MD CHEMISTRY ORDERABLES Performing Organization Address City/State/[place] [address] Magnesium (07/06/2017 8:10 AM EST) athologist Signature Magnesium 0.84 0.69 - 1.07 [facility] mmol/L [facility] Specimen Anatomical Collection Method Collection Time Receive d Time (Source) Location / / Volume Laterality Blood specimen 07/06/2017 8:10 AM 017 8:21 (specimen) EST AM EST Resulting Agency Comment Spec In Lab Daphne Shahid MD CHEMISTRY ORDERABLES Performing Organization Address City/[facility]/[place] [address] (ABNORMAL) Basic Metabolic Panel (non-fasting) (07/06/2017 8:10 AM EST) P athologist Signature Glucose Lvl 199 65 - 199 [facility] mg/dL [facility] LABORATORY [...] or in patients with acute kidney failure. [email or web address] Specimen Anatomical Collection Method Collection Time Receive d Time (Source) Location / / Volume Laterality Blood specimen 07/06/2017 8:10 AM 017 8:21 (specimen) EST AM EST Resulting Agency Comment Spec In Lab Daphne Shahid MD CHEMISTRY ORDERABLES Performing Organization Address City/[facility]/[place] [address] POCT Glucose (07/06/2017 7:34 AM EST) P athologist Signature POC Glucose 198 65 - 199 [facility] mg/dL [facility] Comment: Supplemental [...] e Number [address] POCT Glucose (07/06/2017 7:03 AM EST) athologist Signature POC Glucose 181 65 - 199 [facility] mg/dL [facility] Comment: Supplemental ranges: <140 mg/dL before meals <180 mg/dL all other times of the day Specimen Anatomical Collection Method Collection Time Receive d Time (Source) Location / / Volume Laterality Blood specimen 07/06/2017 7:03 AM 017 7:03 (specimen) EST AM EST Daphne Shahid MD POINT OF CARE TEST ORDERABLE S Performing Organization Address City/State/[place] [address] XR Chest PA or [...] 172 65 - 199 [facility] mg/dL [facility] Comment: Supplemental ranges: <140 mg/dL before meals <180 mg/dL all other times of the day Specimen Anatomical Collection Method Collection Time Receive d Time (Source) Location / / Volume Laterality Blood specimen 07/06/2017 6:21 AM 017 6:21 (specimen) EST AM EST Daphne Shahid MD POINT OF CARE TEST ORDERABLE S Performing Organization Address City/State/[place] [address] POCT Glucose (07/06/2017 5:08 AM EST) athologist Signature POC Glucose 154 65 - 199 [facility] mg/dL [facility] Comment: Supplemental [...] e Number [address] POCT Glucose (07/06/2017 4:05 AM EST) athologist Signature POC Glucose 142 65 - 199 [facility] mg/dL [facility] Comment: Supplemental [...] Hospital Center/ZIP Code Phon e Number [address] POCT Glucose (07/06/2017 3:00 AM EST) athologist Signature POC Glucose 116 65 - 199 [facility] Comment: [...] e Number [address] Potassium (07/06/2017 2:20 AM EST) athologist Signature Potassium 3.9 3.5 - 5.0 [facility] mmol/L [facility] Comment: Please note: ??Patients [...] Organization Address City/State/[place] [address] Differential, Automated (07/06/2017 2:20 AM EST) athologist Signature Neutrophils % 72.9 % [facility] Neutr Abs (ANC) 5.53 1.70 - [facility] 6.10 [facility] x10(3)[facility] LABORATORY Lymphocytes % 16.4 % [facility] Lymphocytes Abs 1.2 0.9 - 3.2 [facility] x10(3)/[facility] LABORATORY Monocytes % 9.4 % [facility] Monocyte Abs 0.7 0.3 - 0.9 [facility] x10(3)/[facility] LABORATORY Eosinophils % 0.5 % [facility] Eosinophils Abs 0.0 0.0 - 0.4 [facility] x10(3)[facility] LABORATORY Basophils % 0.4 % [facility] Basophils Abs 0.0 0.0 - 0.1 [facility] x10(3)/[facility] LABORATORY Immature Gran % 0.40 % [facility] Comment: Immature granulocytes(IG's)percentage an d absolute count will include metamyelocytes, myelocytes, and promyelo cytes. Blood smears from CBCs yielding IG's will be scanned manually for concor dance. If this scan disagrees with the automated IG or if promyelocytes are not ed, a manual differential will be performed. Melisa Gran Abs 0.03 0.00 - 0.04 x10(3)/[facility] MAR Y [facility] LABORATORY Specimen Anatomical Collection Method Collection Time Receive d Time (Source) Location / / Volume Laterality Blood specimen 07/06/2017 2:20 AM 017 2:33 (specimen) EST AM EST Resulting Agency Comment Spec In Lab Daphne Shahid MD HEMATOLOGY ORDERABLES Performing Organization Address City/State/[place] [address] (ABNORMAL) Hemogram (07/06/2017 2:20 AM EST) Analysis Performed At Patho logist Time Signature WBC 7.6 4.0 - 9.5 [facility] x[facility](3)/[facility] LABORATORY RBC 4.52 (L) 4.58 - [facility] 5.54 [facility] x10(6)/[facility] LABORATORY Hemoglobin 13.4 (L) 13.7 - [facility] 16.5 gm/dL [facility] Hematocrit 39.7 (L) 40.5 - [facility] 48.5 % [facility] MCV 87.8 82.9 - [facility] 93.1 [facility] LABORATORY MCH 29.6 27.5 - [place] 32.1 pg [facility]ORAT[facility] MCHC 33.8 32.0 - [facility] 35.7 gm/dL [facility] Platelets 189 145 - 357 [facility] x10(3)/[facility] LABORATORY RDWSD 45.6 (H) 36.0 - [facility] 45.0 [facility] LABORATORY RDWCV 14.3 (H) 11.4 - [facility] 13.8 % [facility] LABORATORY MPV 9.1 7.6 - 12.9 [facility] nRBC % Auto 0.0 % [facility] LABORAT[facility] nRBC Abs Auto 0.000 0.000 - [place] Hal[place] 0.000 [facility] x10(3)/[facility] LABORATORY Specimen Anatomical Collection Method Collection Time Receive d Time (Source) Location / / Volume Laterality Blood specimen 07/06/2017 2:20 AM 017 2:33 (specimen) EST AM EST Resulting Agency Comment Spec In Lab Daphne Shahid MD HEMATOLOGY ORDERABLES Performing Organization Address City/State/ZIP Code Phon [place] [address] (ABNORMAL) APTT (07/06/2017 2:20 AM EST) athologist Signature PTT 52 (H) 25 - 35 sec [facility] Comment: The recommended therapeutic range for fu ll dose, unfractionated heparin at [facility] is 80 ? 114 [...] Organization Address City/State/[place] [address] POCT Glucose (07/06/2017 2:20 AM EST) athologist Signature POC Glucose 115 65 - 199 [facility] mg/dL [facility] Comment: Supplemental ranges: <140 mg/dL before meals <180 mg/dL all other times of the day Specimen Anatomical Collection Method Collection Time Receive d Time (Source) Location / / Volume Laterality Blood specimen 07/06/2017 2:20 AM 017 2:20 (specimen) EST AM EST Daphne Shahid MD POINT OF CARE TEST ORDERABLE S Performing Organization Address City/State/[place] [address] (ABNORMAL) Cardiac Enzymes (LEB/CGP) (07/06/2017 2:20 AM EST) athologist Signature Troponin-T 2.13 (H) 0.00 - [facility] 0.00 ng/mL [facility] Comment: The 99th percentile for Troponin T is le ss than 0.01 ng/mL, any detectable cTnT concentration using this assay should be considered elevated. According to the third universal definit ion of myocardial infarction the following criteria with a clinical prese ntation consistent with acute myocardial ischemia meets the diagnosis for a myocardial infarction (ID). Detection of a rise and/or fall of [...] additional sample may be indicated. Reference: Third [place] Definition of Myocardial Infarction. Journal of the [place] College of Cardiology 2012;60:1581-98 CK, Total 129 0 - 200 unit/L [facility] Specimen Anatomical Collection Method Collection Time Receive d Time (Source) Location / / Volume Laterality Blood specimen 07/06/2017 2:20 AM 017 2:33 (specimen) EST AM EST Resulting Agency Comment Spec In Lab Daphne Shahid MD CHEMISTRY ORDERABLES Performing Organization Address City/State/[place] [address] (ABNORMAL) Hemoglobin A1c (07/06/2017 [...] with hemoglobinopathies. Additional resources are available on [facility] ADA website. Macario HAMMOND, Ruthann J, Deysi R, et al. ??Tr anslating the A1C assay into estimated average glucose values. ??Diabetes Care 2008:31(8):0762-3905. Specimen Anatomical Collection Method Collection Time Receive d Time (Source) Location / / Volume Laterality Blood specimen 07/06/2017 2:20 AM 017 2:34 (specimen) EST AM EST Resulting Agency Comment Spec In Lab Daphne Shahid MD CHEMISTRY ORDERABLES Performing Organization Address City/State/[place] [address] (ABNORMAL) Lipid Panel (07/06/2017 2:20 AM EST) [facility] Method Time Signature Chol, Total 150 [...] greater than or equal to 190 mg/dL. [email or web address] Adults aged 40-75 with LDL 70-189 mg/dL should have their 10 year ASCVD risk estimated with the ACC/AHA ASCVD risk es timator http://tools.acc.org/PZFLP-Zqim-Ynrdizze r/ Statin should be discussed if risk [...] Organization Address City/State/[place] [address] POCT Glucose (07/06/2017 1:09 AM EST) P athologist Signature POC Glucose 121 65 - 199 [facility] mg/dL [facility] Comment: Supplemental [...] Address City/State/ZIP Code [place] [address] POCT Glucose (07/06/2017 12:06 AM EST) athologist Signature POC Glucose 147 65 - 199 [facility] mg/dL [facility] Comment: [...] Organization Address City/State/[place] [address] (ABNORMAL) POCT Glucose (07/05/2017 10:56 PM EST) athologist Signature POC Glucose 200 (H) 65 - 199 [facility] mg/dL [facility] Comment: [...] Organization Address City/State/[place] [address] (ABNORMAL) POCT Glucose (07/05/2017 10:05 PM EST) athologist Signature POC Glucose 225 (H) 65 - 199 [facility] mg/dL [facility] Comment: [...] Organization Address City/State/[place] [address] (ABNORMAL) POCT Glucose (07/05/2017 9:02 PM EST) P athologist Signature POC Glucose 301 (H) 65 - 199 [place] mg/dL [facility] Comment: [...] Code Phon e Number [facility] [address] XR Chest PA or [...] MUSE SYSTEM (Bezet) Calculated P [place] 50 degrees MUSE SYSTEM Calculated R [place] -28 degrees MUSE SYSTEM Calculated T [place] 90 degrees MUSE SYSTEM INTERPRETATION Sinus tachycardia [...] Neutr Abs (ANC) 9.08 (H) 1.70 - [facility] 6.10 [facility] x10(3)/[facility] L LABORATORY Lymphocytes % 7.0 % [facility]ORAT[facility] Lymphocytes Abs 0.7 (L) 0.9 - 3.2 [facility] x10(3)/[facility] LABORATORY Monocytes % 3.7 % [facility] Monocyte Abs 0.4 0.3 - 0.9 [facility] x10(3)/[facility] LABORATORY Eosinophils % 0.1 % [facility] Eosinophils Abs 0.0 0.0 - 0.4 [facility] x10(3)/[facility] LABORATORY Basophils % 0.2 % [facility] Basophils Abs 0.0 0.0 - 0.1 [facility] x10(3)/[facility] LABORATORY Immature Gran % 0.60 % [facility] [...] Organization Address City/State/[place] [address] (ABNORMAL) Hemogram (07/05/2017 8:20 PM EST) Analysis Performed At Patho logist Time Signature WBC 10.3 (H) 4.0 - 9.5 [facility] x10(3)/[facility] LABORATORY RBC 4.64 4.58 - [facility] 5.54 [facility] x10(6)/[facility] LABORATORY Hemoglobin 14.1 13.7 - [facility] 16.5 gm/dL [facility]OR[facility]ORY Hematocrit 40.8 40.5 - [place] 48.5 % [facility]ORAT[facility] MCV 87.9 82.9 - [facility] 93.1 [facility] LABORATORY MCH 30.4 27.5 - [place] 32.1 pg [facility] LABORATORY MCHC 34.6 32.0 - [facility] 35.7 gm/dL [facility]OR[facility] Platelets 204 145 - 357 [facility] x10(3)/[facility] LABORATORY RDWSD 46.1 (H) 36.0 - [place] 45.0 [facility] LABORATORY RDWCV 14.5 (H) 11.4 - [facility] 13.8 % [facility] LABORATORY MPV 9.7 7.6 - 12.9 [facility] LABORATORY nRBC % Auto 0.0 % [facility] LABORATORY nRBC Abs Auto 0.000 0.000 - [place] [facility]AN 0.000 [facility] x10(3)/[facility] LABORATORY Specimen Anatomical Collection Method Collection Time Receive d Time (Source) Location / / Volume Laterality Blood specimen 07/05/2017 8:20 PM 017 8:27 (specimen) EST PM EST Resulting Agency Comment Spec In Lab Daphne Shahid MD HEMATOLOGY ORDERABLES Performing Organization Address City/[facility]/ZIP Code Phon e Number [address] APTT (07/05/2017 8:20 PM EST) P athologist Signature PTT 32 25 - 35 sec [facility] Comment: The recommended therapeutic range for fu ll dose, unfractionated heparin at [facility] is 80 ? 114 [...] ORDERABLES Performing Organization Address City/[facility]/ZIP [facility] [place] [address] (ABNORMAL) Cardiac Enzymes (LEB/CGP) (07/05/2017 8:20 PM EST) P athologist Signature Troponin-T 2.11 (H) 0.00 - [facility] 0.00 ng/mL [facility] Comment: The 99th percentile for Troponin T is le ss than 0.01 ng/mL, any detectable cTnT concentration using this assay should be considered elevated. According to the third universal definit ion of myocardial infarction the following criteria with a clinical prese ntation consistent with acute myocardial ischemia meets the diagnosis for a myocardial infarction (ID). Detection of a rise and/or fall of [...] additional sample may be indicated. Reference: Third [place] Definition of Myocardial Infarction. Journal of the [place] College of Cardiology 2012;60:1581-98 CK, Total 149 0 - 200 unit/L [facility] Specimen Anatomical Collection Method Collection Time Receive d Time (Source) Location / / Volume Laterality Blood specimen 07/05/2017 8:20 PM 017 8:27 (specimen) EST PM EST Resulting Agency Comment Spec In Lab Daphne Shahid MD CHEMISTRY ORDERABLES Performing Organization Address City/[facility]/[place] [address] (ABNORMAL) Magnesium (07/05/2017 8:20 PM EST) P athologist Signature Magnesium 0.68 (L) 0.69 - 1.07 [facility] mmol/L [facility] LABORATORY Specimen Anatomical Collection Method Collection Time Receive d Time (Source) Location / / Volume Laterality Blood specimen 07/05/2017 8:20 PM 017 8:27 (specimen) EST PM EST Resulting Agency Comment Spec In Lab Daphne Shahid MD CHEMISTRY ORDERABLES Performing Organization Address City/State/[place] [address] (ABNORMAL) Basic Metabolic Panel (non-fasting) (07/05/2017 8:20 PM EST) athologist Signature Glucose Lvl 321 (H) 65 - 199 [facility] mg/dL [facility] LABORATORY [...] or in patients with acute kidney failure. http://[email or web address]/DHnkdep [email or web address]/DHMCnkf Specimen Anatomical Collection Method Collection Time Receive d Time (Source) Location / / Volume Laterality Blood specimen 07/05/2017 8:20 PM 017 8:27 (specimen) EST PM EST Resulting Agency Comment Spec In Lab Daphne Shahid MD CHEMISTRY ORDERABLES Performing Organization Address City/State/[place] [address] (ABNORMAL) POCT Glucose (07/05/2017 7:32 PM EST) athologist Signature POC Glucose 296 (H) 65 - 199 [facility] mg/dL [facility] Comment: Supplemental [...] Address City/State/ZIP Code [place] [address] CARDIAC CATHETERIZATION (07/05/2017 6:47 PM EST) Anatomical Region Laterality Modality Other Specimen (Source) Anatomical Location Collection Method / Collectio n Time Received Time / Laterality Volume Narrative 07/05/2017 7:27 PM EST ?[facility] ? Cardiac Cathete rization/Intervention Report ? Patient Name: Natalya, Gregory ? Procedure Date: 07/05/2017 ? A #: [id number] ? Primary Physician: Clarisa, Jet T ? Case #: [id number] ? File Name: [id number] ? Catheterization Order Number: [id number] ? [facility] ? Final Report [place], [place] ? Patient Name: ? Gregory Natalya ?ID#: ?[id number] ? : ?1945 ? Procedure Date: ? [...] presented with: non -STEMI (w/i 7 days). [place] ?[employer] Society angina c lass was IV. 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 ? Jet Mckenna, M.D. ? Electronically Signed by: Jet Sampson DeVrizack s, M.D. ? Report Finalized: 07/05/2017 ??19:23 ? Report Last Ammended: 10/26/2017 ??10:29 ? Procedure Note Jet Mckenna MD - 10/26/2017Formatt ing of this note might be different from the original. [facility] Cardiac Catheterization/Intervention Re port Patient Name: Gregory Hoang Procedure Date: 07/05/2017 A #: [id number] Primary Physician: Jet Mckenna Case #: [id number] File Name: [id number] Catheterization Order Number: [id number] [facility] Final Report [place], [place] Patient Name: Gregory Hoang ID#: [id number] : 1945 Procedure Date: July 05, [...] presented with: non-STEMI ( w/i 7 days). [employer] angina class was IV. 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 Jet Mckenna M.D. Electronically Signed [...] E ? (Age): 1945(72y) Med Rec#: ? [id number] ?Sex: ?M ? Site Loc: ? [facility] ?Ht / Wt: ??173(cm)/86(kg) Pt. Loc: ?[facility] ? BSA: ?2 Study Date: ?? 07/05/2017 ?Pt. Type: Inpatient Tape: ? Referring: Daphne Shahid ([id number]) Referring: MANDA ALCANTAR Reading: Blade Preston ([id number]) Hand Bootmaker: Dayami Paula BA, [facility] [...] E-wave Vmax ?0.8 ?m/sec ? MV deceleration peld918 ?msec ? MV A-wave Vmax ?0.8 ?m/sec [...] Mid-Inferior ?Akinetic ? Mid-Inferoseptal ?Hypokinetic ? [place]-Septal ? Akinetic ? [place]-Anterior ? Hypokinetic ? [place]-Lateral ?Hypokinetic ? [place]-Inferior ? Akinetic ? [place]-Tip ?Akinetic ? This report has been electronically sign ed by: _ Blade Preston MD ? 07/06/2017 08 :53:15 Images reviewed and interpretation verif ied [facility] Procedure Note Blade Preston MD - 07/06/2017Formatt ing of this note might be different from the original. Procedure: Transthoracic Echocardiogram Patient: NATALYA MCBRIDE(Age): [birth year]72y) Med Rec#: [id number] Sex: M [place] [facility] [place]t / Wt: 173(cm)/86(kg) Pt. Loc: U BSA: 2 Study Date: 07/05/2017 Pt. Type: Inpatie nt Tape: Referring: Daphne Shahid ([id number]) Referring: MANDA ALCANTAR Reading: Blade Preston ([id number]) Hand Bootmaker: Dayami Paula BA, [facility] [...] MV E-wave Vmax 0.8 m/sec MV deceleration [id number] msec MV A-wave Vmax 0.8 m/sec MV [...] Mid-Posterolateral Hypokinetic Mid-Inferior Akinetic Mid-Inferoseptal Hypokinetic [place]-Septal Akinetic [place]-Anterior Hypokinetic [place]-Lateral Hypokinetic [place]-Inferior Akinetic [place]-Tip Akinetic This report has been electronically sign ed by: _ Blade Preston MD 07/06/2017 08:53:15 Images reviewed and interpretation verif ied [facility] Daphne Shahid MD ECHO ORDERABLES Differential, Automated (07/05/2017 4:55 PM EST) athologist Signature Neutrophils % 77.0 % [facility] Neutr Abs (ANC) 5.26 1.70 - [facility] 6.10 [facility] x10(3)[facility] Lymphocytes % 13.3 % [facility] Lymphocytes Abs 0.9 0.9 - 3.2 [facility] x10(3)/[facility] LABORATORY Monocytes % 8.2 % [facility] Monocyte Abs 0.6 0.3 - 0.9 [facility] x10(3)/[facility] LABORATORY Eosinophils % 0.7 % [facility] Eosinophils Abs 0.0 0.0 - 0.4 [facility] x10(3)[facility] LABORATORY Basophils % 0.4 % [facility] Basophils Abs 0.0 0.0 - 0.1 [facility] x10(3)/[facility] LABORATORY Immature Gran % 0.40 % [facility] Comment: Immature granulocytes(IG's)percentage an d absolute count will include metamyelocytes, myelocytes, and promyelo cytes. Blood smears from CBCs yielding IG's will be scanned manually for concor dance. If this scan disagrees with the automated IG or if promyelocytes are not ed, a manual differential will be performed. Melisa Gran Abs 0.03 0.00 - 0.04 x10(3)/[facility] MAR Y [facility] Specimen Anatomical Collection Method Collection Time Receive d Time (Source) Location / / Volume Laterality Blood specimen 07/05/2017 4:55 PM 017 5:24 (specimen) EST PM EST Resulting Agency Comment Spec In Lab Daphne Shahid MD HEMATOLOGY ORDERABLES Performing Organization Address City/State/[place] [address] (ABNORMAL) Hemogram (07/05/2017 4:55 PM EST) Analysis Performed At Patho logist Time Signature WBC 6.8 4.0 - 9.5 [facility] x10(3)/[facility] LABORATORY RBC 4.67 4.58 - [place] 5.54 [facility] x10(6)/[facility] LABORATORY Hemoglobin 14.0 13.7 - [facility] 16.[facility] gm/dL [facility] Hematocrit 41.0 40.5 - [facility] 48.5 % [facility] MCV 87.8 82.9 - [facility] 93.1 [facility] LABORATORY MCH 30.0 27.5 - [place] 32.1 pg [facility] MCHC 34.1 32.0 - [place] 35.7 gm/dL [facility] Platelets 197 145 - 357 [facility](3[facility] LABORATORY RDWSD 46.4 (H) 36.0 - [facility] 45.0 [facility] LABORATORY RDWCV 14.5 (H) 11.4 - [facility] 13.8 % [facility] MPV 9.7 7.6 - 12.9 [facility] nRBC % Auto 0.0 % [facility] nRBC Abs Auto 0.000 0.000 - [facility] 0.000 [facility] x10(3)/[facility] LABORATORY Specimen Anatomical Collection Method Collection Time Receive d Time (Source) Location / / Volume Laterality Blood specimen 07/05/2017 4:55 PM 017 5:24 (specimen) EST PM EST Resulting Agency Comment Spec In Lab Daphne Shahid MD HEMATOLOGY ORDERABLES Performing Organization Address City/State/[place] [address] (ABNORMAL) Cardiac Enzymes (LEB/CGP) (07/05/2017 4:55 PM EST) P athologist Signature Troponin-T 1.69 (H) 0.00 - [place] DAVIS 0.00 ng/mL [facility] Comment: The 99th percentile for Troponin T is le ss than 0.01 ng/mL, any detectable cTnT concentration using this assay should be considered elevated. According to the third universal definit ion of myocardial infarction the following criteria with a clinical prese ntation consistent with acute myocardial ischemia meets the diagnosis for a myocardial infarction (ID). Detection of a rise and/or fall of [...] additional sample may be indicated. Reference: Third [place] Definition of Myocardial Infarction. Journal of the [place] College of [employer]iology 2012;60:1581-98 CK, Total 191 0 - 200 unit/L [facility] Specimen Anatomical Collection Method Collection Time Receive d Time (Source) Location / / Volume Laterality Blood specimen 07/05/2017 4:55 PM 017 5:56 (specimen) EST PM EST Resulting Agency Comment Spec In Lab Daphne Shahid MD CHEMISTRY ORDERABLES Performing Organization Address City/State/ZIP Code Phon e Number [place] [phone] (ABNORMAL) pro-Brain Natriuretic Peptide (07/05/2017 4:55 PM EST) P athologist Signature ProBNP 1,598 (H) <=125 [facility] pg/mL [facility] Specimen Anatomical Collection Method Collection Time Receive d Time (Source) Location / / Volume Laterality Blood specimen 07/05/2017 4:55 PM 017 5:24 (specimen) EST PM EST Resulting Agency Comment Spec In Lab Daphne Shahid MD CHEMISTRY ORDERABLES Performing Organization Address City/State/ZIP Code Phon e Number [address] Magnesium (07/05/2017 4:55 PM EST) P athologist Signature Magnesium 0.78 0.69 - 1.07 [facility] mmol/L [facility] Specimen Anatomical Collection Method Collection Time Receive d Time (Source) Location / / Volume Laterality Blood specimen 07/05/2017 4:55 PM 017 5:24 (specimen) EST PM EST Resulting Agency Comment Spec In Lab Daphne Shahid MD CHEMISTRY ORDERABLES Performing Organization Address City/[facility]/[place] [address] (ABNORMAL) Basic Metabolic Panel (non-fasting) (07/05/2017 4:55 PM EST) P athologist Signature Glucose Lvl 230 (H) 65 - 199 [facility] mg/dL [facility] [...] or in patients with acute kidney failure. [email or web address] Specimen Anatomical Collection Method Collection Time Receive d Time (Source) Location / / Volume Laterality Blood specimen 07/05/2017 4:55 PM 017 5:24 (specimen) EST PM EST Resulting Agency Comment Spec In Lab Daphne Shahid MD CHEMISTRY ORDERABLES Performing Organization Address City/[facility] Code Phon e Number [address] (ABNORMAL) APTT (07/05/2017 4:55 PM EST) P athologist Signature PTT 41 (H) 25 - 35 sec [facility] Comment: The recommended therapeutic range for fu ll dose, unfractionated heparin at [facility] is 80 ? 114 [...] HEMATOLOGY ORDERABLES Performing Organization Address City/[facility] [place] [address] (ABNORMAL) POCT Glucose (07/05/2017 4:53 PM EST) P athologist Signature POC Glucose 208 (H) 65 - 199 [facility] mg/dL [facility] Comment: Supplemental [...] City/State/ZIP Code Phon e Number [place] [phone]OS[address] EKG 12 Lead (07/05/2017 [...] MUSE SYSTEM (Bezet) Calculated P [place] 48 degrees MUSE SYSTEM Calculated R [place] -33 degrees MUSE SYSTEM Calculated T [place] 98 degrees MUSE SYSTEM INTERPRETATION Normal sinus [...] unspecified type of vessel, chefornak or graft Cardiomyopathy, ischemic Other specified forms [...] in dextrose 5% 250 mL EST infusion (IT GENERALIST) CONTINUOUS PRN, Starting on Wed07/05/17 at 1837, [...] Em Jones, VAMSI)[phone] (Stopped - Provider: Em Joens RN)[phone] (New Bag - Provider: Em Jones, [...]
Routine documented in this encounter Care Teams Television Producer Relationship Specialty Start Date End Date Lovely Vicente MD PCP - General 04/16/[address] [place] [address] [address] [place] [address] documented as of this encounter
--- OUTSIDE RECORDS SUMMARY | 2022-05-22 08:25 | XMS_ITS | Encounter Summary ---
:1945 Author Organization [facility] [place] [address] Care Team Providers Name Role Phone Lovely Vicente MD Primary Care Provider Encounter Details Date Type Department Care Team Description 07/05/2017 Telephone Cardiology Kim Galindo MD [facility] [place] [address] CARDIOLOGY DEPT [phone] [place], [place] [address] (Wo rk) Social History Tobacco [...] 1:54pm Referring Provider: Ivania CROWELL) Patient Location: [facility] Presenting Symptoms per OSH: [...] infarct and elevated troponin, transport patient to [facility] for cath this afternoon and arrhythmia monitoring. Kim Galindo MD [employer] Maintenance Worker documented in this encounter Plan of Treatment Upcoming Encounters Date Type Specialty Care Team Description 05/28/2022 Appointment Cardiology Zulma Dolan MD [facility] [address] [place], [place] [address] (Wo rk) 05/28/2022 Laboratory Appointment Lab 05/28/2022 Office Visit Cardiology Zulma Dolan MD [facility] [place] [id number] [address] Poole PA [facility] [place] [address] 06/10/2022 Office Visit Dermatology Laura Scherer MD [facility] [address] [place], [place] [address] (Wo rk) documented as of this encounter Visit Diagnoses Not on filedocumented in this encounter Care Teams Bellmaker Relationship Specialty Start Date End Date Lovely Vicente MD PCP - General 04/16/[address] [place] [address] documented as of this encounter
--- OUTSIDE RECORDS SUMMARY | 2022-05-22 08:25 | XMS_ITS | Encounter Summary ---
:1945 Author Organization [facility] [place] [place] [address] Care Team Providers Name Role Phone Lovely Vicente MD Primary Care Provider Encounter Details Date Type Department Care Team Description 09/03/2016 Laboratory Appointment Lab [place] [facility] [place]x of [facility] [place] [phone] Social History Tobacco Use Types Packs/Day Years [...] MD [facility] [place] [address] [place] [address] (Wo rk) 05/28/2022 Laboratory Appointment Lab 05/28/2022 Office Visit Cardiology Zulma Dolan MD [facility] [place] [address] Liz Poole PA [facility] [place] [address] 06/10/2022 Office Visit Dermatology Laura Scherer MD [facility] ER [address] [place], [place] [address] (Wo rk) documented as [...] AM EST) athologist Signature Thyroglobulin <0.4 <=54.9 [facility] ng/mL [facility] Comment: Interpret with caution. [...] than those obtained with T4 withdrawal protocol (Adams BR et al. J Clin Endo Metab 1999;84:5588-4102). Assay performed using the DPC Immulite T [...] Address City/State/ZIP Code Phon e Number [address] TSH (09/03/2016 11:07 AM EST) P athologist Signature TSH 3.01 0.27 - 4.20 [facility] mcIU/mL [facility] Specimen Anatomical Collection Method Collection Time Receive d Time (Source) Location / / Volume Laterality Blood specimen 09/03/2016 11:07 7 (specimen) AM EST 11:22 AM EST Resulting Agency Comment Spec In Lab Luz Prescott MD CHEMISTRY ORDERABLES Performing Organization Address City/[facility]/ZIP [facility] [place] [address] documented in this encounter Visit Diagnoses Diagnosis Hx of papillary thyroid carcinoma Personal history of malignant neoplasm o f thyroid documented in this encounter Care Teams Quality Control Industrial Engineer Relationship Specialty Start Date End Date Lovely Vicente MD PCP - General 04/16/15 [address] [place] [address] documented as of this encounter
--- OUTSIDE RECORDS SUMMARY | 2022-05-22 08:25 | XMS_ITS | Encounter Summary ---
:1945 Author Organization [facility] [place] [address] Care Team Providers Name Role Phone Lovely Vicente MD Primary Care Provider Reason for Visit Reason Comments Skin Check Encounter Details Date Type Department Care Team Description 04/16/2015 Follow-Up Dermatology at [facility] x of melanoma of skin; Abdelrahman HOOPER MD Multiple benign nevi [address] [place] [address] [facility][1]-DERMATOLGY [place], [place] [address] (Wo rk) Social History [...] Zulma Dolan MD [facility] [place], [place] [address] (Wo rk) 05/28/2022 Laboratory Appointment Lab 05/28/2022 Office Visit Cardiology Zulma Dolan MD [facility] [place] [address] Liz Poole PA [facility] [place] [address] 06/10/2022 Office Visit Dermatology Laura Scherer MD [facility] [address] [place], [place] [address] (Wo rk) documented as of this encounter Visit Diagnoses Diagnosis Hx of melanoma of skin Personal history of malignant melanoma o f skin Multiple benign nevi Benign neoplasm of skin, site unspecifie d documented in this encounter Care Teams Guide Delegate Relationship Specialty Start Date End Date Lovely Vicente MD PCP - General 04/16/[address] [place] [address] [address] [place] [address] documented as of this encounter
--- OUTSIDE RECORDS SUMMARY | 2022-05-22 08:26 | XMS_ITS | Encounter Summary ---
:1945 [place] [address] Care Team Providers Name Role Phone MiyaLokeshAngela STACIE Primary Care Provider Encounter Details Date Type Department Care Team Description 03/28/2013 Anesthesia Event Main Operating Room Meredith Calvert MD [facility] DR ANESTHESIOLOGY [place] [address] [facility] Nolvia Riojas PA [facility] PRE-[place] [address] [place] [address] Anesthesia Record Procedure Summary Procedure Name [...] Cardiology Zulma Dolan MD [facility] [place], [place] [address] (Wo rk) 05/28/2022 Laboratory Appointment Lab 05/28/2022 Office Visit Cardiology Zulma Dolan MD [facility] [place] [address] Liz Poole PA [facility] [place] [address] 06/10/2022 Office Visit Dermatology Laura Scherer MD [facility] [address] [place], [place] [address] [...] Routine documented in this encounter Care Teams Washer And Crusher Tender Relationship Specialty Start Date End Date Angela Holliday APRN PCP - General 01/25/13 04/15/[address] [place] [address] documented as of this encounter
--- OUTSIDE RECORDS SUMMARY | 2022-05-22 08:26 | XMS_ITS | Encounter Summary ---
:1945 Author Organization [facility] [place] [address] Care Team Providers Name Role Phone Brody Berrios MD Primary Care Provider Reason for Visit Reason Comments Annual Exam Encounter Details Date Type Department Care Team Description 09/22/2011 Follow-Up Dermatology Arik Tipton Psoriasis (Primary Dx); [facility] MD Jorge Personal history of other malignant neop lasm of skin Drive [place] [phone] DERMATOLOGY DEPT . 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 His only complaints tail bone and [...] to physician for review and changes: Arik Tpiton MD Section of Dermatology [facility] documented in this encounter Plan of Treatment Upcoming Encounters Date Type Specialty Care Team Description 05/28/2022 Appointment Cardiology Zulma Dolan MD [facility] [address] [place], [place] [address] (Wo rk) 05/28/2022 Laboratory Appointment Lab 05/28/2022 Office Visit Cardiology Zulma Dolan MD [facility] [place] [address] Liz Poole PA [facility] [place] [address] 06/10/2022 Office Visit Dermatology Laura Scherer MD [facility] [address] [place], [place] [address] (Wo rk) documented as of this encounter Visit Diagnoses Diagnosis Psoriasis - Primary Other psoriasis Personal history of other malignant neop lasm of skin documented in this encounter Care Teams Washroom Cleaner Relationship Specialty Start Date End Date Brody Berrios MD PCP - General 09/22/11 10/03/[address] [place] [address] documented as of this encounter
--- OUTSIDE RECORDS SUMMARY | 2022-05-22 08:26 | XMS_ITS | Encounter Summary ---
:1945 [place] [address] Care Team Providers Name Role Phone Holley Hollidayica STACIE Primary Care Provider Encounter Details Date Type Department Care Team Description 03/28/2013 - [facility] 03/29/2013 Barbara Gomes MD Dx) [facility] [address] [place]idd[place] [address] [phone] Social History Tobacco Use Types Packs/Day Years [...] please call the General Surgery nurse at [phone], since this may mean that you need morecalcium. Follow-up Appointment: Will be scheduled with Dr. Mcknight in 6 weeks Date and time as well as any required labs will be mailed to you Please call [phone] to confirm date and time of your [...] by calcium supplementation. Phone number for questions: [phone] before 5 PM weekdays [phone] after 5 PM and on weekends/holidays Please follow up with Urology as per their recommendations for Bob removal AttachmentsThe following attachments cannot be sent through Care Everywhere. THYROIDECTOMY: WHAT TO EXPECT AT HOME (BAHAMIAN)URINARY CATHETER CARE: AFTER YOUR VISIT (BAHAMIAN)documented in this encounter Medications at Time of [...] 03/28/2013 3:43 PM EDT [facility] Operative Note Patient Name: Gregory Fatima : [id number] MR#: [id number] Case Date: 03/28/2013 Surgeon: Surgeon(s) and Role: [...] Operative Note Patient Name: Gregory Fatima : [id number] MR#: [id number] Case Date: 03/28/2013 Surgeon: Surgeon(s) and Role: [...] MD [facility] er Dr [place] [address] (Wo rk) 05/28/2022 Laboratory Appointment Lab 05/28/2022 Office Visit Cardiology Zulma Dolan MD [facility] [place] [address] Liz Poole PA [facility] [place] [address] 06/10/2022 Office Visit Dermatology Laura Scherer MD [facility] ER DR TEJA [address] [place] [address] (Wo rk) documented as of this encounter [...] Organization Address City/State/[place] [address] CERNER MILLENNIUM (ABNORMAL) POCT [...] [facility]/[place] [address] CERNER MILLENNIUM (ABNORMAL) POCT [...] [facility]/ZIP Code Phon e Number [address] CERNER MILLENNIUM (ABNORMAL) POCT [...] [facility]/ZIP Code Phon e Number [address] CERNER MILLENNIUM (ABNORMAL) POCT [...] [facility]/ZIP Code Phon e Number [address] CERNER MILLENNIUM (ABNORMAL) POCT [...] [facility]/ZIP Code Phon e Number [address] CERNER MILLENNIUM (ABNORMAL) POCT [...] [facility]/ZIP Code Phon e Number [address] CERNER MILLENNIUM (ABNORMAL) POCT [...] [facility]/ZIP Code Phon e Number [address] [facility] Specimen to Pathology (surgical or derm) (03/28/2013 [...] [facility]/ZIP Code Phon e Number [address] [facility] Pathology Addendum Report (03/28/2013 12:03 PM EDT) Component Value Ref Test Analysis Performed At [facility] gist Range Method Time Signature Addendum CERNER Report ? [facility] ? Provider: ?? MESHA MCKNIGHT Pt. Name: ?? GREGORY FATIMA ? Acc #: ?[id number] ?Pt. MRN: ?[id number] ? Col Date: ?? 03/28/2013 ?/Sex: ?1945,(68 [...] Address City/State/[place] [address] [facility] Surgical Pathology Report (03/28/2013 12:03 PM EDT) Component Value Ref Test Analysis Performed At [facility] gist Range Method Time Signature Surgical [facility] Pathology ? [facility] Report ? Provider: ?? MESHA MCKNIGHT Pt. Name: ?? GREGORY FATIMA ? Acc #: ?[id number] ?Pt. MRN: ?[id number] ? Col Date: ?? 03/28/2013 ?/Sex: ?1945,(68 [...] areas of hemorrhage and ? calcifications. ? [facility] ? Provider: ?? MESHA MCKNIGHT Pt. Name: ?? GREGORY FATIMA ? Acc #: ?[id number] ?Pt. MRN: ?[id number] ? Col Date: ?? 03/28/2013 ?/Sex: ?1945,(68 years),Male ? Rec Date: ?? 03/28/2013 ?LOC: ?[facility] ? SURGICAL PATHOLOGY ? SECTIONS/PROCESSING: Principal Military Analyst sections are subm itted. (R6) ? [...] Address City/State/[place] [address] CERNER MILLENNIUM Frozen Section Report (03/28/2013 12:03 PM EDT) Component Value Ref Test Analysis Performed At [facility] gist Range Method Time Signature Frozen CERNER Section ? [facility] Report ? Provider: ?? MESHA MCKNIGHT Pt. Name: ?? GREGORY FATIMA ? Acc #: ?[id number] ?Pt. MRN: ?[id number] ? Col Date: ?? 03/28/2013 ?/Sex: ?1945,(68 [...] [facility]/[place] [address] CERNER MILLENNIUM POCT Glucose [...] [facility]/ZIP Code Phon e Number [address] CERNER MILLENNIUM Specimen to [...] [facility]/[place] [address] CERNER MILLENNIUM Antibody screen (03/28/2013 9:37 AM EDT) Analysis Performed At Patho logist Time Signature Ab Screen Negative CERNER Interp MILLENNIUM Expires at [id number] CERNER 980 on: MILLENNIUM Specimen Anatomical Collection Method Collection Time Receive d Time (Source) Location / / Volume Laterality Blood specimen 03/28/2013 9:37 AM 013 9:37 (specimen) EDT AM EDT Resulting Agency Comment Spec In Lab Mesha Mcknight MD BLOOD BANK ORDERABLES Performing Organization Address City/[facility]/[place] [address] [facility] ABO/Rh Typing (03/28/2013 9:37 AM EDT) athologist Signature ABORh Type O Pos [facility] Specimen Anatomical Collection Method Collection Time Receive d Time (Source) Location / / Volume Laterality Blood specimen 03/28/2013 9:37 AM 013 9:37 (specimen) EDT AM EDT Resulting Agency Comment Spec In Lab Mesha Mcknight MD BLOOD BANK ORDERABLES Performing Organization Address City/[facility]/ZIP Code Phon e Number [address] [facility] Differential, Automated (03/28/2013 9:34 [...] City/State/ZIP Code Phon e Number [place] [id number] CERNER MILLENNIUM (ABNORMAL) Basic [...] were not validated at [facility]. Results from pediatri c patients [...] Address City/State/[place] [address] CERNER MILLENNIUM (ABNORMAL) CBC [...] MPV 9.3 9.0 - 12.0 CERNER fL [facility] Specimen Anatomical Collection Method Collection Time Receive d Time (Source) Location / / Volume Laterality Blood specimen 03/28/2013 9:34 AM 013 9:38 (specimen) EDT AM EDT Resulting Agency Comment Spec In Lab Mesha Mcknight MD HEMATOLOGY ORDERABLES Performing Organization Address City/[facility]/ZIP Code Phon e Number [address] [facility] POCT Glucose (03/28/2013 9:17 AM EDT) athologist Signature POC Glucose 108 60 - 199 CERNER mg/dL [facility] Comment: Supplemental ranges: <110 mg/dL before meals [...] [facility]/ZIP Code Phon e Number [address] [facility] Specimen to Pathology (surgical or derm) (03/28/2013 [...] [facility]/ZIP Code Phon e Number [address] [facility] documented in this encounter Visit Diagnoses [...] override documented in this encounter Care Teams Boiler Repair Supervisor Relationship Specialty Start Date End Date Angela Holliday APRN PCP - General 01/25/13 04/15/15 [address] [place] [address] documented as of this encounter
--- OUTSIDE RECORDS SUMMARY | 2022-05-22 08:26 | XMS_ITS | Encounter Summary ---
:1945 Author Organization [place] [address] Care Team Providers Name Role Phone NeilSom conner STACIE Primary Care Provider Reason for Visit Reason Comments Establish Care OBST GOITER Encounter Details Date Type Department Care Team Description 01/25/2013 Office Visit General Surgery at Manny Mcknight er colloid, toxic, [facility] MD Eliseo nodular (Primary Dx) [facility] [place] GENERAL SURGERY [id number] [place], [place] [id number] [phone] Social History Tobacco Use Types Packs/Day Years [...] the thyroid gland were obtained using a SonoSi[employer]ezburger MicroMaxx and an HFL38/13-6 broadband linear array [...] agrees to proceed. Will sign in through [facility]. Consent is signed. Send copy to Dr. SOM HOLLIDAY APRN and Elijah Elias MD. documented in this encounter Plan of Treatment Upcoming Encounters Date Type Specialty Care Team Description 05/28/2022 Appointment Cardiology Zulma Dolan MD [facility] [address] [place] [address] (Wo rk) 05/28/2022 Laboratory Appointment Lab 05/28/2022 Office Visit Cardiology Zulma Dolan MD [facility] [place] [address] Liz Poole PA [facility] [place] [address] 06/10/2022 Office Visit Dermatology Laura Scherer MD [facility] DR [address] [place], [place] [address] (Wo rk) documented as [...] 406 ms MUSE SYSTEM (Bezet) Calculated P [place] 52 degrees MUSE SYSTEM Calculated R [place] 0 degrees MUSE SYSTEM Calculated T [place] 40 degrees MUSE SYSTEM INTERPRETATION Normal sinus [...] storm documented in this encounter Care Teams Bus Repair Supervisor Relationship Specialty Start Date End Date oSm Holliday APRN PCP - General 01/25/13 04/15/[address] [place] [address] documented as of this encounter
--- OUTSIDE RECORDS SUMMARY | 2022-05-22 08:26 | XMS_ITS | Encounter Summary ---
:1945 Author Organization [facility] [place] [address] Care Team Providers Name Role Phone Angela Holliday APRN Primary Care Provider Encounter Details Date Type Department Care Team Description 03/15/2013 [address] [facility] Maddison Key, [place] [address] Social History Tobacco Use Types Packs/Day [...] Zulma Dolan MD [facility] [place], [place] [address] (Wo rk) 05/28/2022 Laboratory Appointment Lab 05/28/2022 Office Visit Cardiology Zulma Dolan MD [facility] [place] [address] Liz Poole PA [facility] [place] [address] 06/10/2022 Office Visit Dermatology Laura Scherer MD [facility] [address] [place], [place] [address] (Wo rk) documented as of this encounter Visit Diagnoses Not on filedocumented in this encounter Care Teams Data Warehousing Engineer Relationship Specialty Start Date End Date Angela Holliday APRN PCP - General 01/25/13 04/15/[address] [place] [address] documented as of this encounter
--- OUTSIDE RECORDS SUMMARY | 2022-05-22 08:26 | XMS_ITS | Encounter Summary ---
:1945 Author Organization [facility] [place] [address] Care Team Providers Name Role Phone Angela Holliday APRN Primary Care Provider Encounter Details Date Type Department Care Team Description 01/25/2013 Clinical [place] [address] Social History Tobacco Use Types Packs/Day [...] Description 05/28/2022 Appointment Cardiology uZlma Dolan MD [facility] [address] [place], [place] [address] (Wo rk) 05/28/2022 Laboratory Appointment Lab 05/28/2022 Office Visit Cardiology Zulma Dolan MD [facility] [place] [address] Liz Poole PA [facility] [place] [address] 06/10/2022 Office Visit Dermatology Laura Scherer MD [facility] DR [address] [place], [place] [address] (Wo rk) documented as of this encounter Visit Diagnoses Not on filedocumented in this encounter Care Teams Power Cutting Machine Operator Relationship Specialty Start Date End Date Angela Holliday APRN PCP - General 01/25/13 04/15/[address] [place] [address] documented as of this encounter
--- OUTSIDE RECORDS SUMMARY | 2022-05-22 08:26 | XMS_ITS | Encounter Summary ---
:1945 Author Organization [facility] [place] [address] Care Team Providers Name Role Phone Angela Holliday APRN Primary Care Provider Encounter Details Date Type Department Care Team Description 03/30/2013 Telephone General Surgery at [facility] Cliff Nevarez, [place] [address] Social History Tobacco Use Types Packs/Day [...] [facility] [address] [place], [place] [address] (Wo rk) 05/28/2022 Laboratory Appointment Lab 05/28/2022 Office Visit Cardiology Zulma Dolan MD [facility] [place] [address] Liz Poole PA [facility] [place] [address] 06/10/2022 Office Visit Dermatology Laura Scherer MD [facility] DR [address] [place], [place] [address] (Wo rk) documented as of this encounter Visit Diagnoses Not on filedocumented in this encounter Care Teams Sales And Leasing Consultant Relationship Specialty Start Date End Date Angela Holliday APRN PCP - General 01/25/13 04/15/[address] [place] [address] documented as of this encounter
--- OUTSIDE RECORDS SUMMARY | 2022-05-22 08:26 | XMS_ITS | Encounter Summary ---
:1945 Author Organization [facility] Address [facility] [place] [address] Care Team Providers Name Role Phone Unknown Primary Care Provider Unavailable Reason for Visit Reason Comments Skin Check Encounter Details Date Type Department Care Team Description 10/04/2012 Follow-Up Dermatology at Rigoberto Forman soriasis (Primary Dx); Abdelrahman HOOPER MD Neoplasm of unspecified nature of bone, soft tissue, and skin; [address] [facility] Skin lesion of chest wall; [place] [address] Seborrheic psoriasis- scalp and ingtergl uteal area [phone] [facility] [place], [place] [address] (Wo rk) Social History Tobacco [...] changes: Rigoberto Albarran MD Section of Dermatology [facility] documented in this encounter Plan of Treatment Upcoming Encounters Date Type Specialty Care Team Description 05/28/2022 Appointment Cardiology Zulma Dolan MD [facility] [address] [place], [place] [address] (Wo rk) 05/28/2022 Laboratory Appointment Lab 05/28/2022 Office Visit Cardiology Zulma Dolan [place] [facility] [place] [address] Liz Poole PA [facility] [place] [address] 06/10/2022 Office Visit Dermatology Laura Scherer MD [facility] DR TE[address]MAT [place], [place] [address] (Wo rk) documented as of [...] Component Value Ref Test Analysis Performed At [facility] gist Range Method Time Signature Surgical CERNER Pathology ? [facility] Report ? Provider: ?? RIGOBERTO ALBARRAN III Pt. Name: ?? DON HOANG ?A ? Acc #: ?[id number] ? Pt. ? Col Date: ?? 3 [...] [facility]/ZIP Code Phon e Number [address] [facility] Specimen to Pathology (NON-OR) (10/04/2012 9:55 AM EDT) Specimen Anatomical Collection Method Collection Time Receive d Time (Source) Location / / Volume Laterality AP Specimen 10/04/2012 9:55 AM 201 3 9:56 EDT AM EDT Narrative [facility] - 10/04/2012 9:56 AM E DT Specimen requisition ordered. ??Separate Pathology report to follow Rigoberto Albarran III, MD PATHOLOGY/CYTOLOGY ORDERABLE S Performing Organization Address City/[facility]/ZIP Code Phon e Number [address] [facility] documented in this encounter Visit Diagnoses Diagnosis Psoriasis - Primary Other psoriasis Neoplasm of unspecified nature of bone, soft tissue, and skin Skin lesion of chest wall Unspecified disorder of skin and subcuta neous tissue Seborrheic psoriasis- scalp and ingtergl uteal area Other psoriasis documented in this encounter Care Teams Distribution Estimator Relationship Specialty Start Date End Date Unknown PCP - General 10/04/12 01/24/13 None documented as of this encounter
--- OUTSIDE RECORDS SUMMARY | 2022-05-22 08:26 | XMS_ITS | Encounter Summary ---
:1945 Author Organization [facility] [place] [address] Care Team Providers Name Role Phone Angela Holliday APRN Primary Care Provider Encounter Details Date Type Department Care Team Description 03/28/2013 Surgery Main Operating Room Mesha Mcknight, THYROIDECTOMY, [facility] [address] [place] [address] [place] [address] [phone] (Wo rk) Social History Tobacco Use Types [...] please call the General Surgery nurse at [phone], since this may mean that you need morecalcium. Follow-up Appointment: Will be scheduled with Dr. Mcknight in 6 weeks Date and time as well as any required labs will be mailed to you Please call [phone] to confirm date and time of your [...] by calcium supplementation. Phone number for questions: [phone] before 5 PM weekdays [phone] after 5 PM and on weekends/holidays Please [...] Operative Note Patient Name: Gregory Fatima : [id number] MR#: [id number] Case Date: 03/28/2013 Surgeon: Surgeon(s) and Role: [...] Operative Note Patient Name: Gregory Fatima : [id number] MR#: [id number] Case Date: 03/28/2013 Surgeon: Surgeon(s) and Role: [...] [facility] er Dr [place] [address] (Wo rk) 05/28/2022 Laboratory Appointment Lab 05/28/2022 Office Visit Cardiology Zulma Dolan MD [facility] I[place] [address] Liz Poole PA [facility] Cardiology [place] [address] 06/10/2022 Office Visit Dermatology Laura Scherer MD [facility] ER DR TEJA GR-DERMAT [place] [address] (Wo rk) documented as of this encounter [...] Organization Address City/State/[place] [address] CERNER MILLENNIUM (ABNORMAL) POCT [...] [facility] [place] [address] CERNER MILLENNIUM (ABNORMAL) POCT [...] [facility] [place]/ZIP Code Phon e Number [address] CERNER MILLENNIUM (ABNORMAL) POCT [...] [facility] [place]/ZIP Code Phon e Number [address] CERNER MILLENNIUM (ABNORMAL) POCT [...] [facility] [place]/ZIP Code Phon e Number [address] CERNER MILLENNIUM (ABNORMAL) POCT [...] [facility] [place]/ZIP Code Phon e Number [address] CERNER MILLENNIUM (ABNORMAL) POCT [...] [facility] [place]/ZIP Code Phon e Number [address] CERNER MILLENNIUM (ABNORMAL) POCT [...] [facility] [place]/ZIP Code Phon e Number [address] [facility] Specimen to Pathology (surgical or derm) (03/28/2013 [...] [facility] [place]/ZIP Code Phon e Number [address] [facility] Pathology Addendum Report (03/28/2013 12:03 PM EDT) Component Value Ref Test Analysis Performed At [facility] gist Range Method Time Signature Addendum CERNER Report ? [facility] ? Provider: ?? MESHA MCKNIGHT Pt. Name: ?? GREGORY FATIMA ? Acc #: ?[id number] ?Pt. MRN: ?[id number] ? Col Date: ?? 03/28/2013 ?/Sex: ?1945,(68 [...] Organization Address City/State/[place] [address] [facility] Surgical Pathology Report (03/28/2013 12:03 PM EDT) Component Value Ref Test Analysis Performed At [facility] gist Range Method Time Signature Surgical [facility] Pathology ? [facility] Report ? Provider: ?? MESHA MCKNIGHT Pt. Name: ?? GREGORY FATIMA ? Acc #: ?[id number] ?Pt. MRN: ?[id number] ? Col Date: ?? 03/28/2013 ?/Sex: ?1945,(68 [...] Name: ?? GREGORY FATIMA ? Acc #: ?[id number] ?Pt. MRN: ?[id number] ? Col Date: ?? 03/28/2013 ?/Sex: ?1945,(68 years),Male ? Rec Date: ?? 03/28/2013 ?LOC: ?[facility] ? SURGICAL PATHOLOGY ? SECTIONS/PROCESSING: Manager Gallery sections are subm itted. (R6) ? B [...] Organization Address City/State/[place] [address] CERNER MILLENNIUM Frozen Section Report (03/28/2013 12:03 PM EDT) Component Value Ref Test Analysis Performed At [facility] gist Range Method Time Signature Frozen CERNER Section ? [facility] Report ? Provider: ?? MESHA MCKNIGHT Pt. Name: ?? GREGORY FATIMA ? Acc #: ?[id number] ?Pt. MRN: ?[id number] ? Col Date: ?? 03/28/2013 ?/Sex: ?1945,(68 [...] [facility] [place] [address] CERNER MILLENNIUM POCT Glucose [...] [facility] [place]/ZIP Code Phon e Number [address] CERNER MILLENNIUM Specimen to [...] [facility] [place] [address] CERNER MILLENNIUM Antibody screen (03/28/2013 9:37 AM EDT) Analysis Performed At Patho logist Time Signature Ab Screen Negative CERNER Interp MILLENNIUM Expires at [id number] CERNER 210 on: MILLENNIUM Specimen Anatomical Collection Method Collection Time Receive d Time (Source) Location / / Volume Laterality Blood specimen 03/28/2013 9:37 AM 013 9:37 (specimen) EDT AM EDT Resulting Agency Comment Spec In Lab Mesha Mcknight MD BLOOD BANK ORDERABLES Performing Organization Address City/[facility]/[place] [address] [facility] GRISELDAENNIUM ABO/Rh Typing (03/28/2013 9:37 AM EDT) athologist Signature ABORh Type O Pos [facility] Specimen Anatomical Collection Method Collection Time Receive d Time (Source) Location / / Volume Laterality Blood specimen 03/28/2013 9:37 AM 013 9:37 (specimen) EDT AM EDT Resulting Agency Comment Spec In Lab Mesha Mcknight MD BLOOD BANK ORDERABLES Performing Organization Address City/[facility]/ZIP Code Phon e Number [address] [facility] GR[facility]ELDACOBRE [facility] Differential, Automated [...] City/State/ZIP Code Phon e Number [place] [id number] CERNER MILLENNIUM (ABNORMAL) Basic [...] Organization Address City/State/[place] [address] CERNER MILLENNIUM (ABNORMAL) CBC [...] MPV 9.3 9.0 - 12.0 CERNER fL [facility] Specimen Anatomical Collection Method Collection Time Receive d Time (Source) Location / / Volume Laterality Blood specimen 03/28/2013 9:34 AM 013 9:38 (specimen) EDT AM EDT Resulting Agency Comment Spec In Lab Mesha Mcknight MD HEMATOLOGY ORDERABLES Performing Organization Address City/[facility]/ZIP Code Phon e Number [address] RAKESH [facility]ILLALOB[facility] POCT Glucose (03/28/2013 9:17 AM EDT) athologist Signature POC Glucose 108 60 - 199 CERNER mg/dL [facility] Comment: Supplemental ranges: <110 mg/dL before meals <200 mg/dL all other times of the day Specimen Anatomical Collection Method Collection Time Receive d Time (Source) Location / / Volume Laterality Blood specimen 03/28/2013 9:17 AM 013 9:17 (specimen) EDT AM EDT Mesha Mcknight MD POINT OF CARE TEST ORDERABLE S Performing Organization Address City/[facility]/ZIP Code Phon e Number [address] [facility] Specimen to Pathology (surgical or derm) (03/28/2013 8:55 AM EDT) Specimen Anatomical Collection Method Collection Time Receive d Time (Source) Location / / Volume Laterality AP Specimen 03/28/2013 8:55 AM 3 8:54 EDT AM EDT Narrative [facility] GR[facility]DA[facility] - 03/28/2013 8:55 AM E DT Specimen requisition ordered. ??Separate Pathology report to follow Mesha Mcknight MD PATHOLOGY/CYTOLOGY ORDERABLE S Performing Organization Address City/[facility]/ZIP Code Phon e Number [address] RAKESH WALKER documented in [...] RN) 0900 (Given - Provider: Radha Yao [facility], [facility]) 2.5 mg, Oral, DAILY, [...] c/o headache) 0738 (Given - Provider: Radha Yoa [facility] oseguera) 650 mg, Oral, EVERY 4 [...] override documented in this encounter Care Teams Clerical Adviser Relationship Specialty Start Date End Date Angela Holliday APRN PCP - General 01/25/13 04/15/15 [address] [place] [address] documented as of this encounter
--- OUTSIDE RECORDS SUMMARY | 2022-05-22 08:26 | XMS_ITS | Encounter Summary ---
:1945 Author Organization [facility] [place] [address] Care Team Providers Name Role Phone Unknown Primary Care Provider Unavailable Reason for Visit Reason Comments Other Encounter Details Date Type Department Care Team Description 10/05/2012 Telephone Dermatology at [facility] Rigoberto Garcia III, [address] [place] [address] [facility] [phone] TEJA MARIE-DERMAT [place] [phone] (Wo rk) Social History Tobacco Use Types [...] Zulma Dolan MD [facility] [place], [place] [address] (Wo rk) 05/28/2022 Laboratory Appointment Lab 05/28/2022 Office Visit Cardiology Zulma Dolan MD [facility] [place] [address] Liz Poole PA [facility] [place] [address] 06/10/2022 Office Visit Dermatology Laura Scherer MD [facility] DR TEJA MARIE-DERMAT [place], [place] [address] (Wo rk) documented as of this encounter Visit Diagnoses Not on filedocumented in this encounter Care Teams Leacher Relationship Specialty Start Date End Date Unknown PCP - General 10/04/12 01/24/13 None documented as of this encounter
--- OUTSIDE RECORDS SUMMARY | 2022-05-22 08:26 | XMS_ITS | Encounter Summary ---
:1945 Author Organization [facility] [place] [address] Care Team Providers Name Role Phone Adi Csotello MD Primary Care Provider Reason for Visit Reason Comments Annual Exam ckeck his groin and melanoma follow-up Encounter Details Date Type Department Care Team Description 11/21/2010 Follow-Up Dermatology Arik Tipton Melanoma (Primary Dx) [facility] MD [place] [phone] DERMATOLOGY DEPT . [place] [phone] (Wo rk) Social History Tobacco Use Types [...] changes: Arik Tipton MD Section of Dermatology [facility] documented in this encounter Plan of Treatment Upcoming Encounters Date Type Specialty Care Team Description 05/28/2022 Appointment Cardiology Zulma Dolan MD [facility] [address] [place], [place] [address] (Wo rk) 05/28/2022 Laboratory Appointment Lab 05/28/2022 Office Visit Cardiology Zulma Dolan MD [facility] [place] [address] Liz Poole PA [facility] [place] [address] 06/10/2022 Office Visit Dermatology Laura Scherer MD [facility] DR TEJA GR-DERMAT [place], [place] [address] (Wo rk) documented as of this encounter Visit Diagnoses Diagnosis Melanoma - Primary Melanoma of skin, site unspecified documented in this encounter Care Teams High Density Press Operator Relationship Specialty Start Date End Date Adi Costello MD PCP - General 06/17/10 09/21/11 [address] [place] [address] documented as of this encounter
--- OUTSIDE RECORDS SUMMARY | 2022-05-22 08:27 | XMS_ITS | Encounter Summary ---
:1945 Author Organization [facility] Address [address] [place] [address] Care Team Providers Name Role Phone Lovely Vicente MD Primary Care Provider Encounter Details Date Type Department Care Team Description 04/04/2021 Lab Requisition [facility] Outr Resulting Lab, Pathology & Laboratory Provider [facility] [address] [place] [address] Social History Tobacco Use Types Packs/Day Years [...] (04/03/2021 12:15 EDT) Giardia and Cryptosporidium Cryptosporidium [facility] Cryptosporidium Antigen Neg and Antigen Neg and CENTER Giardia Antigen Neg Giardia Antigen Neg LABORATORY SERVICES Specimen Feces - Specimen from rectum (specimen) Performing Organization Address City/State/ZIP Code Phon e Number [facility] [address] [place] [address] SERVICES documented in this encounter Visit Diagnoses Not on filedocumented in this encounter Care Teams Water Mechanic Relationship Specialty Start Date End Date Lovely Vicente MD PCP - General 07/13/14 documented as of this encounter
--- OUTSIDE RECORDS SUMMARY | 2022-05-22 08:27 | XMS_ITS | Encounter Summary ---
:1945 Author Organization [facility] Address [address] [place] [address] Care Team Providers Name Role Phone Lovely Vicente MD Primary Care Provider Encounter Details Date Type Department Care Team Description 01/17/2021 Lab Requisition [facility] Outr Resulting Lab, Pathology & Laboratory Provider [facility] [address] [place] [address] Social History Tobacco Use Types Packs/Day Years [...] nature PSA 2.9 0.0 - 6.5 ng/mL [facility] LABOR[facility] TORY SERVICES Specimen Blood - Venous blood (substance) Narrative [facility] SERVICES - 01/17/2021 17:46 EDT NOTE: Serum PSA concentration should not be in terpreted as absolute evidence for the presence or absence of malignant disease. Assayed on Siemens ADVIA Centaur XPT usi ng chemiluminescent technology.??Values obtained by using different assay methods cannot be used interchangeably. Performing Organization Address City/State/ZIP Code Phon e Number [facility] [address] [place] [address] SERVICES documented in this encounter Visit Diagnoses Not on filedocumented in this encounter Care Teams Rv Parts And Service Director Relationship Specialty Start Date End Date Lovely Vicente MD PCP - General 07/13/14 documented as of this encounter
--- OUTSIDE RECORDS SUMMARY | 2022-05-22 08:27 | XMS_ITS | Encounter Summary ---
:1945 Author Organization [facility] Address [address] [place] [address] Care Team Providers Name Role Phone Unknown, Provider Primary Care Provider Encounter Details Date Type Department Care Team Description 03/05/2014 Results Only [facility] Eris Taylor MD Laboratory Services - [address] [place] [address] [place] [address] [phone] Social History Tobacco Use Types Packs/Day Years [...] ? DON HOANG ? Accession #: ? [id number] ? : ? 1945 (Age: 68) ??M [...] [facility] [address] [place] [address] SERVICES [facility] [address] [place] [address] documented in this encounter Visit Diagnoses Not on filedocumented in this encounter Care Teams Fire Investigation Lieutenant Relationship Specialty Start Date End Date Unknown, Provider, PCP - General 03/07/14 07/12/14 documented as of this encounter
--- OUTSIDE RECORDS SUMMARY | 2022-05-22 08:27 | XMS_ITS | Clinical Summary ---
:1945 Author Organization [facility] Address [address] [place] [address] Care Team Providers Name Role Phone Lovely [...] Pathologist Sig nature PSA 2.7 <=6.5 ng/mL [facility] LABORATOR Y SERVICES Specimen Blood - Venous blood (substance) Narrative [facility] LABORATORY SERVICES - 02/20/2022 18:17 EDT NOTE: Serum PSA concentration should not be in terpreted as absolute evidence for the presence or absence of malignant disease. Assayed on Siemens ADVIA Centaur XPT usi ng chemiluminescent technology.??Values obtained by using different assay methods cannot be used interchangeably. Performing Organization Address City/State/ZIP Code Phon e Number [facility] LABORATORY [address] [place] [address] SERVICES from Last 3 Months Care Teams Manager Emergency Relationship Specialty Start Date End Date Lovely Vicente MD PCP - General 07/13/14
--- OUTSIDE RECORDS SUMMARY | 2022-05-22 08:27 | XMS_ITS | Encounter Summary ---
:[address] [facility] Address [address] [place] [address] Care Team Providers Name Role Phone Unknown, Provider Primary Care Provider Encounter Details Date Type Department Care Team Description 07/11/2014 Hospital Encounter [facility]- Heather Unknown, Provider, [facility] [address] [place] [address] [place] [address] (Work) [phone] Social History Tobacco Use Types Packs/Day Years Used Date Never Assessed Sex Assigned at Date Recorded Not on file documented as of this encounter Discharge Disposition Disposition Code Departure Means Destination Home or Self Senior Care documented in this encounter Plan of Treatment Not on filedocumented as of this encounter Visit Diagnoses Not on filedocumented in this encounter Care Teams Research Food Technologist Relationship Specialty Start Date End Date Unknown, Provider, PCP - General 03/07/14 07/12/14 documented as of this encounter
--- OUTSIDE RECORDS SUMMARY | 2022-05-22 08:27 | XMS_ITS | Encounter Summary ---
:1945 Author Organization [facility] Address [address] [place] [address] Care Team Providers Name Role Phone Unknown, Provider Primary Care Provider Encounter Details Date Type Department Care Team Description 07/11/2014 Results Only [facility] Shruthi Horowitz MD Laboratory Services - [address] [place] [address] [place] [address] 0 [facility] [place] [address] [phone] Social History Tobacco Use Types Packs/Day Years [...] 8:55 EST) Pathology Report: SURGICAL PATHOLOGY REPORT [facility] Reports generated via electronic interface contain sorin ginal data; LABORATORY however they are lacking the format of the original re port. SERVICES Caution should be taken when reading/interpreting unfo rmatted reports. Name: ? DON HOANG ? Accession #: ? [id number] ? : ? 1945 (Age: 69) ??M [...] 6.5 x 3.0 cm in aggreg ate). Resource Conservation Specialist sections are submitted in 1- 10 (approximately 40% of the specimen is submitted). Viry Nunez 07/12/2014 11:21 AM End of Report Specimen Performing Organization Address City/State/ZIP Code Phon e Number [facility] [address] [place] [address] SERVICES documented in this encounter Visit Diagnoses Not on filedocumented in this encounter Care Teams Environmental Sampling Technician Relationship Specialty Start Date End Date Unknown, Provider, PCP - General 03/07/14 07/12/14 documented as of this encounter
--- OUTSIDE RECORDS SUMMARY | 2022-05-22 08:27 | XMS_ITS | Encounter Summary ---
:1945 Author Organization [facility] Address [address] [place] [address] Care Team Providers Name Role Phone Lovely Vicente MD Primary Care Provider Encounter Details Date Type Department Care Team Description 01/01/2020 Lab Requisition [facility] Outr Resulting Lab, Pathology & Laboratory Provider [facility] [address] [place] [address] Social History Tobacco Use Types Packs/Day Years [...] nature PSA 2.1 0.0 - 6.5 ng/mL [facility] TORY SERVICES Specimen Blood - Venous blood (substance) Narrative [facility] SERVICES - 01/02/2020 10:40 EDT NOTE: Serum PSA concentration should not be in terpreted as absolute evidence for the presence or absence of malignant disease. Assayed on Siemens ADVIA Centaur XPT usi ng chemiluminescent technology.??Values obtained by using different assay methods cannot be used interchangeably. Performing Organization Address City/State/ZIP Code Phon e Number [facility] [address] [place] [address] SERVICES documented in this encounter Visit Diagnoses Not on filedocumented in this encounter Care Teams Seismograph Recorder Relationship Specialty Start Date End Date Lovely Vicente MD PCP - General 07/13/14 documented as of this encounter
--- OUTSIDE RECORDS SUMMARY | 2022-05-22 08:27 | XMS_ITS | Encounter Summary ---
:1945 Author Organization [facility] Address [address] [place] [address] Care Team Providers Name Role Phone Lovely Vicente MD Primary Care Provider Encounter Details Date Type Department Care Team Description 08/11/2019 Lab Requisition [facility] Unknown, Provider, Pathology & Laboratory [facility] [address] [place] [address] Social History Tobacco Use Types Packs/Day Years [...] (08/11/2019 14:35 EST) Giardia and Cryptosporidium Cryptosporidium [facility] Cryptosporidium Antigen Neg and Antigen Neg and CENTER Giardia Antigen Neg Giardia Antigen Neg LABORATORY SERVICES Specimen Feces - Specimen from rectum (specimen) Performing Organization Address City/State/ZIP Code Phon e Number [facility] [address] [place] [address] SERVICES documented in this encounter Visit Diagnoses Not on filedocumented in this encounter Care Teams Electronics Processing Supervisor Relationship Specialty Start Date End Date Lovely Vicente MD PCP - General 07/13/14 documented as of this encounter
--- OUTSIDE RECORDS SUMMARY | 2022-05-22 08:27 | XMS_ITS | Encounter Summary ---
:1945 Author Organization [facility] Address [address] [place] [address] Care Team Providers Name Role Phone Unavailable Primary Care Provider Unavailable Encounter Details Date Type Department Care Team Description 03/05/2014 Hospital Encounter [facility]- Heather Unknown, Provider, [facility] 0 [facility] [phone] [place] [address] (Work) [phone] Social History Tobacco Use Types Packs/Day Years [...]
--- OUTSIDE RECORDS SUMMARY | 2022-05-22 08:27 | XMS_ITS ---
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 Problem Critical ischemia I99.8 Active of lower extremity Problem Atherosclerosis I70.90 Active 3871 6007 Problem Type 2 diabetes E11.628 Active mellitus with other skin complications Problem 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 40 ; Acquired deformi ty of right foot M21.961 ; L luis term current use of i nsulin Z79.4 ; History of art erial bypass of lower extremi ty Z95.828 ; Atherosclerosis I70.90 and History of Lisfr anc amputation of fo ot Z89.439 [facility] Feb, Type 2 diabet es mellitus [address] [place], [place] with diabe tic neuropathy, [address] unspecified E11. 40 ; Acquired deformi ty of right foot M21.961 ; L luis term current use of i nsulin Z79.4 ; History of art erial bypass of lower extremi ty Z95.828 ; Atherosclerosis I70.90 and History of Lisfr anc amputation of fo ot Z89.439 [facility] November, [place] [address] [facility] [address] [facility] November, Type 2 [place] [address] with diabeti c neuropathy, unspecified E11. 40 ; Acquired deformi ty of right foot M21.961 ; L luis term current use of i nsulin Z79.4 ; History of art erial bypass of lower extremi ty Z95.828 ; Atherosclerosis I70.90 and History of Lisfr anc amputation of fo ot Z89.439 [facility] 10 Aug, 2019 Type 2 [place] [address] with other skin complications E1 1.628 ; Tinea pedis of l eft foot B35.3 ; Type 2 d iabetes mellitus with di abetic neuropathy, unsp ecified E11.40 ; Acquire d deformity of right foot M2 1.961 ; correction current use of insulin Z79.4 ; History of arterial bypass of lower extremity Z95.828 and Athe rosclerosis I70.90 [facility] Jun, [place] [address] [address] Jun, [place] [address] [address] Jun, Type 2 diabet es mellitus [place], [place] with other skin [address] complications E1 1.628 ; Acquired deformi ty of right foot M21.961 ; T ype 2 diabetes mellitu s with diabetic neuropa thy, unspecified E11. 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 Feb, Type 2 [place] [address] with other s kin complications E1 1.628 ; Acquired deformi ty of right foot M21.961 ; T ype 2 diabetes mellitu s with diabetic neuropa thy, unspecified E11. 40 ; correction current use of insulin Z79.4 and Histor y of arterial bypass of lower extremity Z95.82 8 [facility] November, Tinea pedis o f left foot [place], [place] B35.3 ; Ty pe 2 diabetes 17589 mellitus with ot her skin complications E1 1.628 ; Acquired deformi ty of right foot M21.961 ; T ype 2 diabetes mellitu s with diabetic neuropa thy, unspecified E11. 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 40 ; Acquired deformi ty of right foot M21.961 ; P eripheral arterial disease I73.9 ; History of arter ial bypass of lower extremi ty Z95.828 ; correction curren t use of insulin Z79.4 an d History of Lisfranc amputat ion of foot Z89.439 UNKNOWN Jul, [facility] 11 Jun, 2018 Type 2 [place] [address] with diabeti c neuropathy, unspecified E11. 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 40 [facility] Feb, Edema of both legs R60.0 ; [place] [address] Ulcer of lef t calf, limited to breakdown of skin L97.221 ; Acquired defor mity of right foot M21.9 61 ; Peripheral arter ial disease I73.9 ; History of arterial bypass of lower extremity Z95.828 ; Long t erm current use of insulin Z 79.4 and Type 2 diabetes mellitus with diabetic ne uropathy, unspecified E11. 40 [facility] 1 Feb, [place] [address] [facility] Feb, Edema of both legs R60.0 ; [place] [address] Ulcer of rig ht calf, limited to [...] [facility] [address] [facility] Feb, [place] [address] [facility] [address] [facility] [address] Feb, [place] [address] [facility] [address] [facility] [address] Jan, [place] [address] [facility] [address] [facility] [address] Jan, [place] [address] [facility] [address] [facility] [address] Jan, [place] [address] [facility] [address] [facility] [address] Jan, [place] [address] [facility] [address] [facility] [address] Jan, [place] [address] [facility] [address] [facility] [address] Dec, [place] [address] [facility] [address] [facility] [address] Dec, [place] [address] [facility] [address] [facility] [address] Dec, [place] [address] [facility] [address] [facility] [address] Dec, [place] [address] [facility] Dec, [place] [address] [facility] [address] [facility] [address] Dec, [place] [address] [facility] November, [place] [address] [facility] November, [place] [address] [facility] November, [place] [address] [facility] November, [place] [address] [facility] November, [place] [address] [facility] November, [place] [address] UNKNOWN November, [facility] [address] November, [place] [address] [facility] November, [place] [address] [facility] Oct, [place] [address] [facility] Oct[place] [address] [facility] Oct, [place] [address] [facility] [address] 18 Oct, 2017 [place] [address] [facility] 16 Oct, 2017 [place] [address] [facility] [address] 16 Oct, 2017 [facility] [address] [facility] Oct, [place] [address] [facility] Oct, [place] [address] [facility] Oct, [place] [address] [facility] [address] [place] Sep, [facility] [address] [facility] Sep, [place] [address] [facility] [address] Sep, [place] [address] [facility] [address] Sep, [place] [address] [facility] [address] [place] Sep, [place] [address] [facility] [address] [place] Sep, Critical ischemi a of lower [place] [address] extremity I 99.8 ; Local infection of the skin and subcutaneous tis lindsey, unspecified L08. 9 and Type 2 diabetes mellitu s with other skin complicatio ns E11.628 [facility] Sep, [place] [address] [facility] [address] [facility] [address] Sep, [place] [address] [facility] [address] [facility] [address] Sep, [place] [address] [facility] [address] [facility] [address] 14 Sep, [address] [place] [address] [facility] Sep, [place] [address] [facility] Sep, [place] [address] [facility] [address] [facility] Sep, [place] [address] [facility] [address] [facility] Sep, [place] [address] [facility] [address] [facility] [address] Aug, [place] [address] [facility] [address] [place] Aug, [facility] [address] [facility] [place] Aug, [place] [address] SURG[facility] Aug, [place] [address] SURGERY [facility] Aug, [place] [address] [facility] Aug, [place] [address] ORTHOPEDIC OFFICE [facility] Aug, Pre-op exam Z01.818 [place] [address] [facility] Aug, [place] [address] [facility] Aug, [place] [address] [facility] Aug, [place] [address] IMMUNIZATIONS No Known Immunizations SOCIAL HISTORY Qualifiers [...] subcutaneously 22 24h Active units/mL daily Pen [place] Active Ciclopirox Externally Twice 1 application 12h [...] For Report MR Lower Ext R w/o ([id number]) 2017-09-16 See Below For Report CR C-ARM [...] [facility] [facility], f/u - bilateral leg edema, Pt [...] at wound center,lab work done 03/07/2018 @ [facility], Patient came in with tubigrip bilateral , wound clin est, wound clinest, Wound CTR-follow up, Wound CTR-follow up, Wound CTR-follow up, Peer to Peer w/ Dr. Espino, Wound CTR-follow up, Wound CTR-follow up, Analytics Consultant Documentation, LAB, Wound CTR-follow up, Wound CTR-follow up, Wound CTR-follow up, Wound CTR-follow up, LAB, LAB, Wound CTR- follow up, Wound CTR-follow up, Wound CTR-follow up, Analytics Consultant Documentation, [facility], Wound CTR-follow up, Wound CTR-follow up, Pull PICC Line, Wound CTR-follow up, Wound CTR-follow up, LAB, Still taking doxycycline 100mg? , Wound CTR-follow up, Wound CTR-follow up, Wound CTR-follow up, Analytics Consultant Documentation, Wound CTR-follow up, Wound CTR-follow up, Call back, Analytics Consultant Documentation, Analytics Consultant Documentation, Analytics Consultant Documentation, Wound CTR-follow up, WCC, Wound CTR-follow up, Wound CTR-follow up, labs, D/C planning, bailey smetatarsal amputation of right foot, LAB, LAB, Wound CTR-NEW Insurance Providers [facility] Member Patient Patient Patient Patient Patient Subscriber Subscriber Subscriber Group Insurance Plan Plan Plan Plan ID Relationship Address Phone Name Date of ID Name Date of No Type Insurance Insurance Insurance Coverage to Subscriber Address Phone Name Dates S-BLUE [phone] S-BLUE [place] [id number] [address] [place] [address] [place] OTHER 29 [place] [phone] OTHER GREGORY [id number] GRANT 1^[facility] PAYOR [id number] MEDICARE 3000 GOFF[employer] MEDICARE self [place] [id number] 1 [id number] [facility] [id number] SELF PAY [address] STRE[address] SELF PAY self [place] [id number] AFTER AJ ALVAREZASTER AFTER AJ [facility] [id number] [place]
--- OUTSIDE RECORDS SUMMARY | 2022-05-22 08:27 | XMS_ITS | Encounter Summary ---
:1945 Author Organization [facility] Address [address] [place] [address] Care Team Providers Name Role Phone Lovely Vicente MD Primary Care Provider Encounter Details Date Type Department Care Team Description 01/28/2022 Lab Requisition [facility] Outr Resulting Lab, Pathology & Laboratory Provider [facility] [address] [place] [address] Social History Tobacco Use Types Packs/Day Years Used Date Never Assessed Sex Assigned at Date Recorded Not on file documented as of this encounter Plan of Treatment Not on filedocumented as of this encounter Procedures Procedure Name Priority Date/Time Associated Diagnosis Comme nts COVID-19 TEST [facility] Today 01/27/2022 14:30 LAB PCR EDT COVID-19 TESTING Routine 01/27/2022 14:30 Results for this EDT procedure are i n the results section. documented in this encounter Results COVID-19 TEST [facility] LAB PCR (01/27/2022 14:30 EDT) Specimen Swab Performing Organization Address City/State/ZIP Code Phon e Number [facility] [address] [place] [address] SERVICES COVID-19 TESTING (01/27/2022 14:30 EDT) COVID-19 rt-PCR Negative Negative [facility] Result Comment: CENTER LABORATORY This [...] was performed using the meliton SARS-CoV-2 assay ([employer] on the Meliton 6800 System Performing Lab [place] [address] [facility] Lab [facility] SERVICES Specimen Swab Performing Organization Address City/State/ZIP Code Phon e Number [facility] [address] [place] [id number] SERVICES documented in this encounter Visit Diagnoses Not on filedocumented in this encounter Care Teams Occupational Health And Safety Manager Relationship Specialty Start Date End Date Lovely Vicente MD PCP - General 07/13/14 documented as of this encounter
--- OUTSIDE RECORDS SUMMARY | 2022-05-22 08:27 | XMS_ITS | Encounter Summary ---
:1945 Author Organization [facility] Address [address] [place] [address] Care Team Providers Name Role Phone Lovely Vicente MD Primary Care Provider Encounter Details Date Type Department Care Team Description 02/20/2022 Lab Requisition [facility] Outr Resulting Lab, Pathology & Laboratory Provider [facility] [address] [place] [address] Social History Tobacco Use Types Packs/Day Years [...] Number [facility] [address] [place] [address] SERVICES documented in this encounter Visit Diagnoses Not on filedocumented in this encounter Care Teams Sugar Sampler Relationship Specialty Start Date End Date Lovely Vicente MD PCP - General 07/13/14 documented as of this encounter
== END 2022-05-25 23:59 | disposition home or self-care (01) ==
LOC: CR 08:10
PROVIDERS: PCP Family Medicine; Visit Provider Internal Medicine Cardiovascular Disease
DX: Z51.89 Encounter for other specified aftercare (principal); I25.2 Old myocardial infarction; Z95.5 Presence of coronary angioplasty implant and graft; I50.89 Other heart failure
CPT/HCPCS: S9472

== ENCOUNTER 2022-09-28 21:26 | Outpatient (REF) | payer MEDICARE, BC, SELFPAY ==
--- OUTSIDE RECORDS SUMMARY | 2022-09-28 21:42 | XMS_ITS ---
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 492129008 Problem Critical ischemia of lower extremity I99.8 Active Problem Atherosclerosis I70.90 Active 82020022 Problem Type 2 diabetes mellitus with other skin complications E11.628 Active Problem 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 Active Problem Ulcer of left calf, limited to breakdown of skin L97.221 Active 187251802 Problem Ulcer of right calf, limited to breakdown of skin L97.211 Active 458557553 Problem Peripheral arterial disease I73.9 Active 112889118 ALLERGIES No Known Allergies ENCOUNTERS Encounter Location Date Diagnosis [facility] [address] 10 Aug, [address] [facility] [address] 11 May, 2020 Type 2 diabetes mellitus with diabetic neuropathy, unspecified E11.40 ; Acquired deformity of right foot M21.961 ; [facility] current use of insulin Z79.4 ; 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 ; Atherosclerosis I70.90 and 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 [facility] [address] Feb, Type 2 diabetes mellitus with diabetic neuropathy, unspecified E11.40 ; Acquired deformity of right foot M21.961 ; 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.4 ; 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 ; Atherosclerosis I70.90 and 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 [facility] [address] November, [facility] [address] November, Type 2 diabetes mellitus with diabetic neuropathy, unspecified E11.40 ; Acquired deformity of right foot M21.961 ; [facility] current use of insulin Z79.4 ; 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 ; Atherosclerosis I70.90 and 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 [facility] [address] Aug, Type 2 diabetes mellitus with other skin complications E11.628 ; Tinea pedis of left foot B35.3 ; Type 2 diabetes mellitus with diabetic neuropathy, unspecified E11.40 ; Acquired deformity of right foot M21.961 ; [facility] current use of insulin Z79.4 ; 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 and Atherosclerosis I70.90 [facility] [address] Jun, [facility] [address] Jun, [facility] [address] Jun, Type 2 diabetes mellitus with other skin complications E11.628 ; Acquired deformity of right foot M21.961 ; Type 2 diabetes mellitus with diabetic neuropathy, unspecified E11.40 ; [facility] current use of insulin Z79.4 and 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 [facility] [address] [place] [address] Feb, Type 2 diabetes mellitus with other skin complications E11.628 ; Acquired deformity of right foot M21.961 ; Type 2 diabetes mellitus with diabetic neuropathy, unspecified E11.40 ; 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.4 and 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 [facility] [address] November, Tinea pedis of left foot B35.3 ; Type 2 diabetes mellitus with other skin complications E11.628 ; Acquired deformity of right foot M21.961 ; Type 2 diabetes mellitus with diabetic neuropathy, unspecified E11.40 ; [facility] current use of insulin Z79.4 and 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 [facility] [address] November, [facility] [address] Aug, Type 2 diabetes mellitus with diabetic neuropathy, unspecified E11.40 ; Acquired deformity of right foot M21.961 ; Peripheral arterial disease I73.9 ; 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 ; 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 and 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 UNKNOWN Jul, [facility] [address] [place] [address] Jun, Type 2 diabetes mellitus with diabetic neuropathy, unspecified E11.40 [facility] [address] Apr, Edema of both legs R60.0 ; Acquired deformity of right foot M21.961 ; Peripheral arterial disease I73.9 ; 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 ; 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.4 and Type 2 diabetes mellitus with diabetic neuropathy, unspecified E11.40 [facility] [address] Mar, [facility] [address] Mar, Edema of both legs R60.0 ; Acquired deformity of right foot M21.961 ; Peripheral arterial disease I73.9 ; 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 ; 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.4 and Type 2 diabetes mellitus with diabetic neuropathy, unspecified E11.40 [facility] [address] [place] [address] Feb, Edema of both legs R60.0 ; Ulcer of left calf, limited to breakdown of skin L97.221 ; Acquired deformity of right foot M21.961 ; Peripheral arterial disease I73.9 ; 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 ; [facility] current use of insulin Z79.4 and Type 2 diabetes mellitus with diabetic neuropathy, unspecified E11.40 [facility] [address] [facility] [address] [place] [address] Feb, [facility] [address] [place] [address] Feb, Edema of both legs R60.0 ; Ulcer of right calf, limited to breakdown of skin L97.211 ; Ulcer of left calf, limited to breakdown of skin L97.221 ; Acquired deformity of right foot M21.961 ; Peripheral arterial disease I73.9 ; 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 ; 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 and Type 2 diabetes mellitus with diabetic neuropathy, unspecified E11.40 [facility] [address] [place] [address] Feb, [facility] [address] [place] [address] Feb, [facility] [address] [place] [address] Jan, [facility] [address] [place] [address] Jan, [facility] [address] [place] [address] Jan, [facility] [address] [place] [address] Jan, [facility] [address] [place] [address] Jan, [facility] [address] [place] [address] Dec, [facility] [address] [place] [address] Dec, [facility] [address] [place] [address] Dec, [facility] [address] [place] [address] Dec, [facility] [address] [place] [address] Dec, [facility] [address] [place] [address] 05 Dec, 2017 [facility] [address] [place] [address] November, [facility] [address] [place] [address] November, [facility] [address] [place] [address] November, [facility] [address] [place] [address] November, [facility] [address] [place] [address] November, [facility] [address] [place] [address] November, UNKNOWN November, [facility] [address] [facility] [address] [place] [address] November, [facility] [address] [place] [address] November, [facility] [address] [place] [address] Oct, [facility] [address] [place] [address] Oct, [facility] [address] [place] [address] Oct, [facility] [address] [place] [address] Oct, [facility] [address] [place] [address] Oct, [facility] [address] [place] [address] Oct, [facility] [address] [place] [address] Oct, [facility] [address] [place] [address] Oct, [facility] [address] [place] [address] Oct, [facility] [address] [place] [address] Sep, [facility] [address] [place] [address] Sep, [facility] [address] [place] [address] Sep, [facility] [address] [place] [address] Sep, [facility] [address] [place] [address] Sep, [facility] [address] [facility] [place] [address] Sep, Critical ischemia of lower extremity I99.8 ; Local infection of the skin and subcutaneous tissue, unspecified L08.9 and Type 2 diabetes mellitus with other skin complications E11.628 [facility] [address] [place] [address] Sep, [facility] [address] [place] [address] Sep, [facility] [address] [place] [address] Sep, [facility] [address] [facility] [place] [address] Sep, [facility] [address] [place] [address] Sep, [facility] [address] [place] [address] Sep, [facility] [address] [place] [address] Sep, [facility] [address] [place] [address] Sep, [facility] [address] [place] [address] Aug, [facility] [address] [place] [address] Aug, [facility] [address] [place] [address] Aug, SURG[facility] [address] [place] [address] Aug, SURG[facility] [address] [place] [address] Aug, [facility] [address] [place] [address] Aug, [facility] [address] [place] [address] Aug, Pre-op exam Z01.818 [facility] [address] [place] [address] Aug, [facility] [address] [place] [address] Aug, [facility] [address] [place] [address] Aug, IMMUNIZATIONS No Known Immunizations SOCIAL HISTORY Qualifiers Date Former Smoker REASON FOR REFERRAL FUNCTIONAL STATUS PLAN OF CARE Activity Details VITAL SIGNS Height 68 in 2020-06-05 Height [...] 27.37 kg/m2 2017-09-14 Temperature 97.2 degrees Fahrenheit Temperature 97.4 degrees Fahrenheit Temperature 98.1 degrees Fahrenheit Temperature 97.9 degrees Fahrenheit Temperature 99.0 degrees Fahrenheit Temperature 98.4 degrees Fahrenheit Temperature 96.3 degrees Fahrenheit Temperature 99.7 degrees Fahrenheit Temperature 99.4 degrees Fahrenheit Temperature 98.5 degrees Fahrenheit Temperature 98.6 degrees Fahrenheit Temperature TYMPANIC:96.9 degrees Fahrenheit 2018-03-15 Temperature 98.6 degrees Fahrenheit Heart Rate 78 /min 2020-06-05 Heart Rate [...] 2017-09-14 Blood pressure systolic 181 mm Hg Blood pressure diastolic 94 mm Hg 2020-05 MEDICATIONS Medication Instructions Dosage Frequency Start Date End Date Duration Status Levothyroxine Sodium 175 mcg (0.175 mg) orally once a day 1 tab(s) 24h Not-Tak ng metFORMIN HCl 850 mg orally twice a day 1 tab(s) 12h Active Dilaudid 2 mg orally every 4 hours 1 tab(s) 4h Not- ng HumaLOG 100 units/mL subcutaneously tid prior to meals 15 Active Magnesium Oxide 500 MG as directed Active Turmeric 500 mg orally twice a day 2 cap(s) 12h Active Insulin Glargine 100 UNIT/ML as directed Active Iron Combinations - Orally 1 tab once a day 325 mg Active Aspirin 81 81 MG Orally Once a day 1 tablet 24h 30 day(s) Not- ng Furosemide 20 mg orally once a day 1 tab(s) 24h Active -OTC, HERBALS Ac tive Lancets - as directed Ac tive Doxycycline Hyclate hyclate 100 mg orally 2 times a day 1 cap(s) 12h Sep, 21 days Not-i ng Lantus 100 units/mL subcutaneously daily 22 24h Active Pen [place] Acti ve Ciclopirox Olamine 0.77 % Externally Twice a day 1 application to left foot 12h Not-i ng Insulin Lispro 100 UNIT/ML as directed Active TYLENOL ARTHRITIS GELCAP Not- ng Lisinopril 2.5 mg orally once a day 1 tab(s) 24h Active Ferrous Sulfate 325 (65 Fe) MG Orally Once a day 1 tablet 24h 30 day(s) Not-Taki ng Melatonin 3 mg orally once (at bedtime) 2 tab(s) Aug, Not-Taki ng Warfarin Sodium 2.5 mg orally once a day 1 tab(s) 24h Active MAGNESIUM CHLORIDE 250mh 2 24h Not-T lizzie ng Atorvastatin Calcium 20 MG Orally once a day 1 tab(s) 24h Active Ascorbic Acid 500 MG Orally Once a day 1 tablet 24h 30 day(s) Active Amiodarone HCl 200 mg orally once a day 1 tab(s) 24h Not-Taki ng Acetaminophen 500 MG Orally every 6 hrs 1 capsule as needed 6h Active Metoprolol Succinate 25 MG Orally Once a day 1 capsule 24h 30 day(s) Active PROCEDURES No Known procedures RESULTS Name Result Date Reference Range PREV: DIABETIC FOOT EXAM 2019-09-04 HEMOGLOBIN A1C 2018-09-27 HGA1C 7.4 CALC. MEAN GLUC HB2 reviously reported u HEMOGLOBIN A1C 2018-08-18 HGA1C 7.3 CALC. MEAN GLUC HB2 reviously reported u FERRITIN 2018-07-01 Ferritin 33 FERRITIN CBC WITH AUTO DIFF 2018-01-11 BA# 0.0 0.0-0.2 EO# 0.1 0.0-0.7 IG# 0.0 0.0-0.1 LY# 0.9 1.5-4.0 MO# 0.7 0.2-0.8 ANC# 5.3 1.4-7.9 BA% 0.3 EO% 1.3 HCT 37.9 42.0-52.0 HGB 11.3 13.5-18.0 IG% 0.1 0.0-1.0 LY% 12.4 MCH 25.6 27.0-32.0 MCHC 29.8 32.0-36.0 MCV 86 78-100 MO% 9.5 MPV 8.7 7.4-11.0 NE% 76.5 PLT 247 140-440 RBC 4.4 4.5-6.0 RDW 16.7 11.0-14.0 WBC 6.9 4.0-12.0 COMPMET 2018-01-11 ALB 3.5 3.4-5.0 ALKP 68 46-116 ALT 32 13-78 AST 22 15-37 BUN 26 7-18 CA 9.2 8.5-10.1 CO2 27 22-32 CL 102 98-108 CREATS 1.08 0.55-1.30 DBIL 0.2 0.0-0.2 EGFR >60 >=60 GLUC 145 74-106 K+ 4.4 3.7-5.0 NA 140 136-144 TBIL 0.7 0.3-1.2 TP 6.9 6.5-8.1 CRP-INFLAM 2018-01-11 CRP <0.2 0.0-0.9 SED RATE 2018-01-11 ESR 19 0-20 X Foot R 3V 2018-01-11 See Below For Report US LOWER EXTREMITY ARTERIAL BILATERAL 201 02-28-05 See Below For Report PT/INR 2017-12-16 CBC WITH AUTO DIFF 2017-12-14 BA# 0.0 0.0-0.2 COMPMET 2017-12-14 CRP-INFLAM 2017-12-14 CRP <0.2 0.0-0.9 SED RATE 2017-12-14 X Foot R 3V 2017-12-14 See Below For Report MULTIPLE LABS 2017-11-22 X Chest 1V 2017-11-23 See Below For Report MULTIPLE LABS 2017-11-15 PT/INR 2017-11-08 PT/INR 2017-11-05 CULTURE ANAEROBIC 2017-10-12 CULTURE WOUND 2017-10-12 SENSITIVITY ORGANISM 1 2017-10-12 X Chest 1V 2017-09-29 See Below For Report CBC WITH AUTO DIFF 2017-09-28 BA# 0.0 0.0-0.2 COMPMET 2017-09-28 CRP-INFLAM 2017-09-28 CRP 1.0 0.0-0.9 SED RATE 2017-09-28 PT/INR 2017-09-28 GLUCOSE POINT OF CARE 2017-09-16 COMMENT1 CULTURE ANAEROBIC 2017-09-16 CULTURE OTHER 2017-09-16 PT/INR 2017-09-16 SENSITIVITY ORGANISM 2 2017-09-16 Ampicillin <=2 SENSITIVITY ORGANISM 3 2017-09-16 GLUCOSE POINT OF CARE 2017-09-16 COMMENT1 X Foot R 3V 2017-09-16 See Below For Report MR Lower Ext R w/o ([id number]) 2017-09-16 See Below For Report CR C-ARM MINI 2017-09-16 See Below For Report BASEMET 2017-09-14 CBC WITH AUTO DIFF 2017-09-14 BA# 0.0 0.0-0.2 CRP-INFLAM 2017-09-14 CRP 0.8 0.0-0.9 SED RATE 2017-09-14 PT/INR 2017-09-14 ALBUMIN 2017-09-09 CBC WITHOUT DIFF (Hemogram) 2017-09-09 HCT 36.7 42.0-52.0 CRP-INFLAM 2017-09-09 CRP 1.1 0.0-0.9 PREALBUMIN 2017-09-09 SED RATE 2017-09-09 X Foot R 3V 2017-09-09 See Below [...] no concerns today, 3 month f/u, pt states that he is here for DM foot care , pt states that he used all of the cicloporox and thinks that it helped , needs vascular f/u chk 12/28, 3 mo f/u r foot dm deformity, last seen by [facility] on 09/04/19 for DM footcare and tinea pedis-KG, pt states he is here today for Dm eval and nailcare-KG, 6 month f/u , pt was last seen on 06/28/19 by [facility] for bilateral foot discoloration and nail care. mrr, pt herefor right foot f/u and toenail maintenance of [...] pt states he coiuld use a his nailstrimmed today , 3 month f/u Referral Done, [...] area, scant amount between toes. 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 Espino, Wound CTR-follow up, Wound CTR-follow up, Lottery Office Manager Documentation, LAB, Wound CTR-follow up, Wound CTR-follow up, Wound CTR-follow up, Wound CTR-follow up, LAB, LAB, Wound CTR-follow up, Wound CTR-follow up, Wound CTR-follow up, Lottery Office Manager Documentation, [facility], Wound CTR- follow up, Wound CTR-follow up, Pull PICC Line, Wound CTR-follow up, Wound CTR- follow up, LAB, Still taking doxycycline 100mg? , Wound CTR-follow up, Wound CTR-follow up, Wound CTR-follow up, Lottery Office Manager Documentation, Wound CTR-follow up, Wound CTR-follow up, Call back, Lottery Office Manager Documentation,Lottery Office Manager Documentation, Lottery Office Manager Documentation, Wound CTR-follow up, WCC, Wound CTR-follow up, Wound CTR- follow up, labs, D/C planning, transmetatarsal amputation of right foot, LAB, LAB, Wound CTR-NEW Insurance Providers Health Insurance Type Health Plan Insurance Address Health Plan Insurance Phone Health Plan Insurance Name Health Plan Coverage Dates Member ID Patient Relationship to Subscriber Patient Address Patient Phone Patient Name Patient Date of Subscriber ID Subscriber Name Subscriber Date of Group No [place] [address] [facility] [address] [place] GREGORY HOANG [id number] OTHER [employer] PAYOR [place]is [place] [id number] [phone] 1^MAIN 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
[2022-09-28 21:55] LABS: Bilirubin Negative (Negative); Blood Moderate (Negative); Clarity Clear (Clear); Glucose 500 mg/dL (Negative); Ketones Negative (Negative); Leukocyte Esterase Negative (Negative); Nitrite Negative (Negative); Urobilinogen 0.2 mg/dL (Up to 0.2); pH 6.5 (5-8)
[2022-09-28 22:04] LABS: Bacteria Rare HPF (Negative); Epithelial Cells Negative HPF (Negative); RBC 0-2 HPF (0-2); WBC 0-2 HPF (0-5)
[2022-09-28 22:05] LABS: C & S Indicated? No; Crystals Negative HPF (Negative); Mucus Negative (Negative)
== END 2022-09-28 21:27 | disposition home or self-care (01) ==
LOC: LBN 21:26
PROVIDERS: PCP Family Medicine; Visit Provider Nurse Practitioner Family
DX: R31.9 Hematuria, unspecified (principal)
CPT/HCPCS: 81003; 81015

== ENCOUNTER 2022-10-02 07:44 | Outpatient (CLI) | payer MEDICARE, BC, SELFPAY ==
[2022-10-02 07:20] LABS: Abs Immature Grans 0.04 10^3/uL (0.0-0.06); Absolute Basophil Count 0.04 10^3/uL (0.0-0.2); Absolute Eosinophil Count 0.14 10^3/uL (0.0-0.7); Absolute Lymphocyte Count 0.77 10^3/uL (1.2-3.4); Absolute Neutrophil Count 4.26 10^3/uL (1.2-6.7); Basophils % 0.7; Eosinophils % 2.4; HCT 41.7 % (40.0-50.0); HGB 14.1 g/dL (13.5-17.5); Immature Grans % 0.7; Lymphocytes % 13.4; MCHC 33.8 % (32.0-36.0); MCV 95 fL (80-95); MPV 8.7 fL (8.0-11.0); Monocytes % 8.7; Neutrophils % 74.1; Platelet Count 140 10^3/uL (130-400); RBC 4.41 10^6/uL (4.36-5.78); RDW 17.1 % (11.8-14.1); RDW-SD 51.7 fL; WBC 5.75 10^3/uL (4.4-10.8)
[2022-10-02 07:24] LABS: Bilirubin Negative (Negative); Blood Small (Negative); Clarity Sl Cloudy (Clear); Glucose >=1000 mg/dL (Negative); Ketones Negative (Negative); Leukocyte Esterase Negative (Negative); Nitrite Negative (Negative); Urobilinogen 0.2 mg/dL (Up to 0.2)
[2022-10-02 07:37] LABS: Bacteria Rare HPF (Negative); Crystals Negative HPF (Negative); Epithelial Cells Negative HPF (Negative); Mucus Negative (Negative); Other Cells Negative (Negative); WBC Negative HPF (0-5)
[2022-10-02 07:38] LABS: C & S Indicated? No
[2022-10-02 07:41] LABS: ALT 28 U/L (16-63); AST 15 U/L (15-37); Albumin 3.6 g/dL (3.4-5.0); Alkaline Phosphatase 91 U/L (46-116); Anion Gap 8.6 mmol/L (3-11); BUN 23 mg/dL (7-18); Bilirubin, Total 0.5 mg/dL (0.2-1.0); CO2 31.4 mmol/L (21.0-32.0); CREATININE 1.5 mg/dL (0.70-1.30); Chloride 104 mmol/L (98-107); Estimated GFR 47.95 (mL/min/1.73m2); Glucose 214 mg/dL (74-106); Potassium 4.2 mmol/L (3.5-5.1); Sodium 144 mmol/L (136-145); Total Protein 7.3 g/dL (6.4-8.2)
== END 2022-10-02 07:45 | disposition home or self-care (01) ==
LOC: LBO 07:45
PROVIDERS: PCP Family Medicine; Visit Provider Family Medicine
DX: R31.9 Hematuria, unspecified (principal)
CPT/HCPCS: 36415; 80053; 84153; 81003; 81015; 85025

== ENCOUNTER 2022-11-11 03:09 | Outpatient (CLI) | payer MEDICARE, BC, SELFPAY ==
[2022-11-11 19:13] LABS: PSA, Screening 2.6 ng/mL (<=6.5)
== END 2022-11-11 03:10 | disposition home or self-care (01) ==
PROVIDERS: PCP Family Medicine; Visit Provider Nurse Practitioner Family
DX: R31.9 Hematuria, unspecified (principal); Z12.5 Encounter for screening for malignant neoplasm of prostate
CPT/HCPCS: 36415; 84153

== ENCOUNTER 2023-01-06 13:21 | Outpatient (REF) | payer MEDICARE, BC, SELFPAY | END 2023-01-06 13:22 | disposition home or self-care (01) | LOC: LBN 13:21 | PROVIDERS: PCP Family Medicine; Visit Provider Urology | DX: R31.9 Hematuria, unspecified (principal) | CPT/HCPCS: 87086 ==

== ENCOUNTER 2023-01-19 10:16 | Outpatient (CLI) | payer MEDICARE, BC, SELFPAY ==
[2023-01-19 12:53] LABS: HGB 13.8 g/dL (13.5-17.5); MCH 29.3 pg (27.0-33.0); MCHC 31.4 % (32.0-36.0); MCV 93 fL (80-95); MPV 9.4 fL (8.0-11.0); Platelet Count 240 10^3/uL (130-400); RBC 4.71 10^6/uL (4.36-5.78); RDW-SD 51.8 fL; WBC 8.54 10^3/uL (4.4-10.8)
[2023-01-19 14:49] LABS: Hemoglobin A1C 7.1 % (<5.7)
[2023-01-19 15:18] LABS: ALT 18 U/L (16-63); AST 13 U/L (15-37); Albumin 3.2 g/dL (3.4-5.0); Alkaline Phosphatase 91 U/L (46-116); Anion Gap 9.4 mmol/L (3-11); BUN 35 mg/dL (7-18); Bilirubin, Total 0.7 mg/dL (0.2-1.0); CO2 28.6 mmol/L (21.0-32.0); CREATININE 1.6 mg/dL (0.70-1.30); Calcium 9.2 mg/dL (8.5-10.1); Chloride 101 mmol/L (98-107); Estimated GFR 44.38 (mL/min/1.73m2); Glucose 243 mg/dL (74-106); NT-proBNP 624 pg/mL (<300); Potassium 4.3 mmol/L (3.5-5.1); Sodium 139 mmol/L (136-145); TSH (W/Ref FT4) 0.66 uIU/mL (0.36-3.74); Total Protein 7.8 g/dL (6.4-8.2)
== END 2023-01-19 10:17 | disposition home or self-care (01) ==
LOC: LOS 10:16
PROVIDERS: PCP Family Medicine; Referring Provider Family Medicine; Visit Provider Family Medicine
DX: I25.10 Atherosclerotic heart disease of native coronary artery without angina pectoris (principal); I50.9 Heart failure, unspecified; R53.1 Weakness; E11.9 Type 2 diabetes mellitus without complications; F32.9 Major depressive disorder, single episode, unspecified
CPT/HCPCS: 36415; 80053; 85027; 83036; 83880; 84443

== ENCOUNTER 2023-02-08 13:35 | Outpatient (REF) | payer MEDICARE, BC, SELFPAY | END 2023-02-08 13:36 | disposition home or self-care (01) | LOC: LBN 13:35 | PROVIDERS: PCP Family Medicine; Visit Provider Urology | DX: R31.9 Hematuria, unspecified (principal) | CPT/HCPCS: 87086 ==

== ENCOUNTER 2023-03-01 08:04 | Outpatient (REF) | payer MEDICARE, BC, SELFPAY ==
[2023-03-01 10:32] LABS: Creatinine,Urine 41.01 mg/dL; Sodium, Urine 71 mmol/L
[2023-03-01 10:33] LABS: CLEAVED CELLS 185 mmol/24h (40-220); Creatinine,24hr Ur 1.07 g/24hr (0.95-2.49); Total Volume 2600 ml
[2023-03-02 09:24] LABS: Calcium Urine 5.6 mg/dL (See Note); Calcium Urine 24 hr 146 mg/24hr (100-300); Phosphorus Urine 23.6 mg/dL (See Note); Phosphorus Urine 24hr 0.6 g/24hrs (0.4-1.3); Timed Urine Volume 2600 mL; Urine Collection Period 24.5 Hours
[2023-03-02 09:27] LABS: Timed Urine Volume 2600 mL; Urine Collection Period 24.5 Hours
[2023-03-02 09:30] LABS: Timed Urine Volume 2600 mL; Uric Acid Urine 14.4 mg/dL (See Note); Uric Acid Urine 24hr 374 mg/24hrs (250-750); Urine Collection Period 24.5 Hours
[2023-03-03 12:34] LABS: Citrate Excretion, 24hr, U 380 mg/24 h; Urine Volume 2600 mL
[2023-03-03 13:34] LABS: Oxalate, U 0.34 mmol/24 h (0.11-0.46); Oxalate, U 29.9 mg/24 h (9.7 - 40.5); Urine Volume 2600 mL
[2023-03-12 15:34] LABS: Timed Urine Volume 2600 mL; Urine Collection Period 24.5 h
== END 2023-03-01 08:05 | disposition home or self-care (01) ==
LOC: LBN 08:04
PROVIDERS: PCP Family Medicine; Visit Provider Urology
DX: N20.0 Calculus of kidney (principal)
CPT/HCPCS: 82507; 83735; 81050; 82340; 82570; 83945; 84105; 84300; 84560

== ENCOUNTER 2023-03-08 08:40 | Observation (INO) | payer MEDICARE, BC, SELFPAY ==
[2023-03-08] VITALS (22 sets, daily range): BP systolic 118–166; BP diastolic 54–114; PULSE 55–71; RESP 12–19; TEMP 36.1–36.6; O2SAT 93–98
--- NOTE | 2023-03-08 08:45 | RT.EKG_ITS ---
APPROVED REPORT Exam: Resting ECG Reason for Exam: lightheaded/ dizzy Patient Location: E HR:58 bpm ECG Measurements Heart Rate 58 AXIS ID 200 P 22 QRSd 110 QRS -53 QT 402 T 122 QTc 395 Conclusion Sinus bradycardia...rate< 60 Left axis deviation...QRS axis (-30,-90) Slight ST elevations V1-V2, present on prior EKG 12/08/[address] segment or T wave abnormalities to suggest occluisve DC
--- NOTE | 2023-03-08 09:00 | DI.RAD_ITS ---
Exam(s) XR PORTABLE CHEST AP EXAM: XR PORTABLE CHEST AP CLINICAL HISTORY: malaise. TECHNIQUE: 2D digital imaging was performed. COMPARISON: Prior x-ray November 2021 FINDINGS: Single AP portable view. Sternotomy wires again noted. Cardiomegaly. Mediastinum unremarkable. Lungs are clear. No infiltrates nor obvious pleural effusions. No evidence of pulmonary edema at this time. No pleural effusions. IMPRESSION: Sternotomy. Mild cardiomegaly. No acute pulmonary findings nor pleural effusions. DATA REPOSITORY: RADIATION DOSE DELIVERED:
--- NOTE | 2023-03-08 09:04 | W.ED.GENAD ---
Discharge Plan Disposition Patient Disposition: Admit to [facility] Condition: Serious Discharge Details Chief Complaint: Dizzy/Sync Clinical Impression: ASHD (arteriosclerotic heart disease), Pre-syncope Primary Care Provider: Lovely Vicente ED Provider: Maddison Smith Home Meds and New Rx's Prescriptions: No Action ferrous sulfate 325 mg (65 mg iron) tablet 325 mg PO .4 day per week diphth,pertus(acell),tetanus 2.5-8-5 Lf-mcg-Lf/0.5mL syringe 0.5 ml IM ONCE Qty: 0.5 0RF Rx Instructions: as a single dose apixaban 5 mg tablet 5 mg PO BID Qty: 180 5RF empagliflozin 10 mg tablet 10 mg PO DAILY Qty: 90 5RF clopidogrel 75 mg tablet 75 mg PO DAILY Qty: 90 5RF turmeric root extract 500 mg capsule 500 mg PO BID losartan 50 mg tablet 50 mg PO DAILY Qty: 90 6RF Hold Instructions: Per [facility] torsemide 20 mg tablet 10 mg PO DAILY Qty: 45 4RF metformin 850 mg tablet 850 mg PO BID Qty: 180 4RF (DME) blood-glucose meter 1 EACH misc 1 ea Miscellaneous PRN Qty: 1 Rx Instructions: For Accucheck Compact meter DIAGNOSIS CODE 250.01 (DME) lancets [BD Ultra Fine Lancets] 1 EACH misc 1 ea Sub-Q AC & HS Qty: 400 6RF Rx Instructions: Labile blood sugar E11.65 DISPENSE: lancets acetaminophen 650 MG tablet 2 tab PO BID PRN magnesium oxide 500 mg capsule 500 mg PO DAILY Qty: 180 ascorbic acid (vitamin C) [Vitamin C] 500 mg tablet 500 mg PO DAILY Patient Comments: 05/09/15- Takes during winter months. aj nitroglycerin 0.4 mg tablet, sublingual 0.4 mg sublingual Q5M PRN Rx Instructions: do not exceed 3 doses per episode pantoprazole 40 mg tablet,delayed release (DR/EC) 40 mg PO DIRECTED Rx Instructions: Rx'd by [facility]/pps 02/25/22-q 48 hrs x 1 weeks, then D/C/pps Entresto 24-26 mg tablet 1 tab PO BID Rx Instructions: 02/25/22-Rx'd by [facility] atorvastatin 10 mg tablet 10 mg PO .COMPLEX Qty: 90 3RF Rx Instructions: 10 mg PO 5 days weekly; (DME) Blood Glucose Test Strip 1 ea Miscellaneous AC & HS Qty: 400 12RF Rx Instructions: accu check arriva METER. PT USES INSULIN. Labile DM. TESTS TID AND PRN.DIAGNOSIS CODE E11.65/Z79.4 insulin glargine [Lantus Solostar U-100 Insulin] 100 unit/mL (3 mL) insulin pen 35 unit subcut DAILY Qty: 30 4RF levothyroxine 175 mcg tablet 175 mcg PO DAILY Qty: 102 5RF Rx Instructions: 1 tab daily except 2 tabs on Wed (DME) pen needle, diabetic [Pen Needle] 31 gauge x 12/08 needle 1 ea Miscellaneous ac and hs Qty: 400 3RF Rx Instructions: 31G 16 pen needle to administer insulin.E11.65 ;4X/d metoprolol succinate 25 mg tablet extended release 24 hr 25 mg PO DAILY clobetasol 0.05 % solution 1 applic Topical DAILY PRN (Reason: rash) Qty: 50 5RF insulin lispro [Humalog KwikPen Insulin] 100 unit/mL insulin pen 25 unit subcut AC Qty: 30 4RF furosemide 40 mg tablet 40 mg PO QAM Qty: 14 4RF albuterol sulfate [Proventil HFA] 90 mcg/actuation HFA aerosol inhaler 2 puff inhalation QID PRN (Reason: shortness of breath or wheezing) Qty: 8.5 5RF Medical Decision Making 78yo M with hx of CAD s/p CABG, multiple stents, CHF, afib, hypothyroid, HTN, DM, presenting for malaise and nausea. 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 No chest pain, shortness or breath, palpations, or syncope, or LE edema, however never had chest pain with his prior MIs, those also presented with generalized malaise and nausea. Vital signs and physical exam reassuring. EKG sinus bradycardia, appropriate intervals, no acute ischemic changes compared to prior 12/10/21. CXR independently reviewed, no pneumothorax or pneumonia, agree with radiology read below. Labs reviewed as below; CBC & CMP reassuring, Cr 1.4 (at baseline on [facility] record review), BNP mildly elevated at 499, troponin negative x 2. On reassessment he continues to c/o malaise/lightheadedness, much more so when ambulating. Difficulty to pin down exact nature of symptoms, does not seem vertiginous, more pre-syncopal. at bedside spoke with patient's strip deburrer at [facility]; they are booked out for echocardiograms until May even for urgent echos. HEART score 4/moderate risk, symptoms persist here in the ED. Given this, warrants observation for further workup/monitoring despite reassuring ED workup. Discussed with hospitalist; accepted to medicine servcie and awaiting transfer to the floor. Imaging Data Radiologic Study: Imaging: X-Ray Radiologist's impression: IMPRESSION: Sternotomy.? Mild cardiomegaly.? No acute pulmonary findings nor pleural effusions. Lab Data Lab results reviewed: Yes I reviewed the patient's lab results. Labs: Laboratory Tests Range/Units 03/08/23 03/08/23 09:13 09:13 WBC (4.4-10.8) 10^3/uL 6.41 RBC (4.36-5.78) 10^6/uL 5.04 Hgb (13.5-17.5) g/dL 15.1 Hct (40.0-50.0) % 45.9 MCV (80-95) fL 91 MCH (27.0-33.0) pg 30.0 MCHC (32.0-36.0) % 32.9 RDW (11.8-14.1) % 15.5 H Plt Count (130-400) 10^3/uL 178 MPV (8.0-11.0) fL 9.0 Immature Gran % 0.6 Neutrophils % 78.5 Lymphocytes % 12.0 Monocytes % 6.9 Eosinophils % 1.4 Basophils % 0.6 Nucleated RBC % (0.0-0.3) % 0.0 Absolute Neutrophils (1.2-6.7) 10^3/uL 5.03 Absolute Lymphocytes (1.2-3.4) 10^3/uL 0.77 L Absolute Monocytes (0.1-0.8) 10^3/uL 0.44 Absolute Eosinophils (0.0-0.7) 10^3/uL 0.09 Absolute Basophils (0.0-0.2) 10^3/uL 0.04 Sodium (136-145) mmol/L 142 Potassium (3.5-5.1) mmol/L 4.8 Chloride (98-107) mmol/L 104 Carbon Dioxide (21.0-32.0) mmol/L 32.7 H Anion Gap (3-11) mmol/L 5.3 BUN (7-18) mg/dL 27 H Creatinine (0.70-1.30) mg/dL 1.4 H Est GFR (CKD-EPI 2020) (mL/min/1.73m2) 51.77 Glucose (74-106) mg/dL 161 H Calcium (8.5-10.1) mg/dL 9.7 Magnesium (1.8-2.4) mg/dL 2.0 Total Bilirubin (0.2-1.0) mg/dL 0.6 AST (15-37) U/L 23 ALT (16-63) U/L 38 Alkaline Phosphatase (46-116) U/L 94 Troponin I (<or=60) ng/L < 50 NT-Pro-B Natriuret Pep (<300) pg/mL 499 H Total Protein (6.4-8.2) g/dL 7.9 Albumin (3.4-5.0) g/dL 4.0 HPI General Mode of arrival: ambulatory. Date/Time Provider Initiated Documentation: 03/08/23 08:48. Limitations to Documentation: no limitations. Information obtained by: patient, family and old records reviewed. HPI Narrative: 78yo M with hx of CAD s/p CABG, multiple stents, CHF, afib, hypothyroid, HTN, DM, presenting for malaise and nausea. 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 5-6 days of general malaise, intermittent generalized weakness with associated nausea without vomiting. No chest pain, shortness or breath, palpations, presyncope, syncope, or LE edema. Never had chest pain with his prior MIs, those also presented with generalized malaise and nausea. He is otherwise in his usual state of health with no fevers, chills, rash, abdominal pain, diarrhea, dysuria, hematuria, or other concerns. Related Data Home Medications Medication Instructions Recorded Confirmed blood-glucose meter #1 ea 07/24/14 03/08/23 lancets 33 gauge (BD Ultra Fine ##400 10/25/17 03/08/23 Lancets) acetaminophen 650 mg 2 tab PO BID PRN 11/02/17 03/08/23 tablet,extended release turmeric root extract 500 mg 500 mg PO BID 12/13/18 03/08/23 capsule magnesium oxide 500 mg capsule 500 mg PO DAILY #180 tabs 10/28/20 03/08/23 ascorbic acid (vitamin C) 500 mg 500 mg PO DAILY 12/31/20 03/08/23 tablet (Vitamin C) ferrous sulfate 325 mg (65 mg 325 mg PO .4 day per week 03/27/21 03/08/23 iron) tablet nitroglycerin 0.4 mg sublingual 0.4 mg sublingual Q5M PRN 12/15/21 03/08/23 tablet losartan 50 mg tablet 50 mg PO DAILY #90 tabs 01/22/22 03/08/23 pantoprazole 40 mg tablet,delayed 40 mg PO DIRECTED 02/25/22 03/08/23 release sacubitril 24 mg-valsartan 26 mg 1 tab PO BID 02/25/22 03/08/23 tablet (Entresto) atorvastatin 10 mg tablet 10 mg PO .COMPLEX #90 tab-caps 04/13/22 03/08/23 blood sugar diagnostic (Blood #400 strips 05/25/22 03/08/23 Glucose Test strips) insulin glargine 100 unit/mL (3 35 unit (0.35 mL) subcut DAILY #30 06/10/22 03/08/23 mL) subcutaneous pen (Lantus mL Solostar U-100 Insulin) levothyroxine 175 mcg tablet 175 mcg PO DAILY #102 tab-caps 07/06/22 03/08/23 metformin 850 mg tablet 850 mg PO BID #180 tabs 07/30/22 03/08/23 torsemide 20 mg tablet 10 mg PO DAILY #45 tabs 07/30/22 03/08/23 pen needle, diabetic 31 gauge x ##400 07/31/22 03/08/2312/08 (Pen Needle) metoprolol succinate 25 mg 25 mg PO DAILY 08/03/22 03/08/23 tablet,extended release 24 hr apixaban 5 mg tablet 5 mg PO BID #180 tabs 10/27/22 03/08/23 clopidogrel 75 mg tablet 75 mg PO DAILY #90 tabs 10/27/22 03/08/23 diphth,pertus(acell),tetanus 2.5 0.5 ml IM ONCE #0.5 mL 10/27/22 03/08/23 Lf unit-8 mcg-5 Lf/0.5mL IM syringe empagliflozin 10 mg tablet 10 mg PO DAILY #90 tabs 10/27/22 03/08/23 clobetasol 0.05 % scalp solution 1 applic topical DAILY PRN rash 12/30/22 03/08/23 #50 mL insulin lispro 100 unit/mL 25 unit (0.25 mL) subcut AC #30 mL 01/11/23 03/08/23 subcutaneous pen (Humalog KwikPen (U-100) Insulin) albuterol sulfate 90 mcg/actuation 2 puff inhalation QID PRN 01/21/23 03/08/23 aerosol inhaler (Proventil HFA) shortness of breath or wheezing #8.5 grams furosemide 40 mg tablet 40 mg PO QAM #14 tabs 01/21/23 03/08/23 Previous Rx's Medication Instructions Recorded lancets 33 gauge (BD Ultra Fine ##400 10/25/17 Lancets) losartan 50 mg tablet 50 mg PO DAILY #90 tabs 01/22/22 atorvastatin 10 mg tablet 10 mg PO .COMPLEX #90 tab-caps 04/13/22 blood sugar diagnostic (Blood #400 strips 05/25/22 Glucose Test strips) insulin glargine 100 unit/mL (3 35 unit (0.35 mL) subcut DAILY #30 06/10/22 mL) subcutaneous pen (Lantus mL Solostar U-100 Insulin) levothyroxine 175 mcg tablet 175 mcg PO DAILY #102 tab-caps 07/06/22 metformin 850 mg tablet 850 mg PO BID #180 tabs 07/30/22 torsemide 20 mg tablet 10 mg PO DAILY #45 tabs 07/30/22 pen needle, diabetic 31 gauge x ##400 07/31/2212/08 (Pen Needle) apixaban 5 mg tablet 5 mg PO BID #180 tabs 10/27/22 clopidogrel 75 mg tablet 75 mg PO DAILY #90 tabs 10/27/22 diphth,pertus(acell),tetanus 2.5 0.5 ml IM ONCE #0.5 mL 10/27/22 Lf unit-8 mcg-5 Lf/0.5mL IM syringe empagliflozin 10 mg tablet 10 mg PO DAILY #90 tabs 10/27/22 clobetasol 0.05 % scalp solution 1 applic topical DAILY PRN rash 12/30/22 #50 mL insulin lispro 100 unit/mL 25 unit (0.25 mL) subcut AC #30 mL 01/11/23 subcutaneous pen (Humalog KwikPen (U-100) Insulin) albuterol sulfate 90 mcg/actuation 2 puff inhalation QID PRN 01/21/23 aerosol inhaler (Proventil HFA) shortness of breath or wheezing #8.5 grams furosemide 40 mg tablet 40 mg PO QAM #14 tabs 01/21/23 Allergies Allergy/AdvReac Type Severity Reaction Status Date / Time lisinopril AdvReac cough Verified 03/08/23 08:48 General Stated Complaint: Dizzy/Sync RENETTA: 3 Review of Systems Narrative: see HPI PFSH All Active Problems (Updated 03/08/23 @ 12:34 by Maddison Smith MD) Pre-syncope (Acute) Hematuria (Acute) Weakness (Acute) Low iron (Acute) Presence of external hearing aid (Acute) CAD (coronary artery disease) (Chronic) Pre-op testing (Acute) Respiratory failure with hypoxia (Acute) Diabetes (Chronic) Hypothyroidism (Chronic) Acute non-ST elevation myocardial infarction (NSTEMI) (Acute) CHF exacerbation (Acute) Renal function impairment (Chronic) Impacted cerumen, bilateral (Acute) Diarrhea (Acute) Dizziness (Acute) Primary osteoarthritis, left hand (Acute) Conductive hearing loss, external ear (Acute) Diarrhea (Acute) Restless legs (Acute 03/13/13) Afib (Chronic) Chronic anticoagulation (Acute) Urinary retention (Chronic 06/28/14) Type 2 diabetes mellitus with hyperglycemia (Chronic 12/24/15) Tubular adenoma of colon (Chronic 07/03/14) 01/06 Sleep apnea (Chronic) study 02/06/14-severe obstructive sleep apnea; CPAP Sensorineural hearing loss, bilateral (Chronic 11/28/12) Dr Vega; B/L hearing aids Psoriasis (Chronic 03/13/13) 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) [facility] Hypothyroidism associated with surgical procedure (Chronic 04/10/14) 03/2013 [facility] thyroidectomy: papillary carcinoma Peripheral neuropathy (Chronic 01/03/15) Nontoxic multinodular goiter (Chronic 09/12/12) Malignant melanoma of skin (Chronic 09/12/12) [facility] DERMATOLOGY; HAS F/U IN SEPTEMBER 2012 & annually MELANOMA TO BACK Left carpal tunnel syndrome (Chronic 06/30/17) Ischemic cardiomyopathy (Chronic 07/05/17) 07/05/17 LVEF=29% Hypomagnesemia (Chronic 04/18/13) Clinically manifested with leg cramps; initiated Mg++ Oxide 03/2013 Heartburn (Chronic 03/13/13) PPI prn Nisson fundiplication 06/08 Essential hypertension (Chronic 11/07/12) Diabetic neuropathy (Chronic 06/28/14) Depression (Chronic) 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 Taylor letter GE junction; pending path results BPH NOS w/o ur obs/LUTS (Chronic) ASHD (arteriosclerotic heart disease) (Chronic 07/05/17) 07/05/17-[facility] 3VCAD; Medical History (Updated 03/08/23 @ 12:34 by Maddison Smith MD) Anemia (07/23/14) BPH (benign prostatic hyperplasia) Bruising (03/07/18) on coumadin Carpal tunnel syndrome on both sides 01/22/15 Cerumen debris on tympanic membrane of right ear Confusion 08/03/17 Deep vein thrombosis (DVT) of tibial vein of right lower extremity 08/03/17 unspecified chronicity partial occlusion 07/29/17 Diabetes mellitus Functional disorder of stomach 09/12/12 GERD (gastroesophageal reflux disease) History of tobacco use Quit 1970s Hyperlipemia Hypertension Ischemic leg 09/02/17 Malignant melanoma of skin, unspecified in situ; neg. sentinel node Night cramps 04/11/13 Obesity MARIA VICTORIA (obstructive sleep apnea) Pain at injection site Papillary thyroid carcinoma 03/30/1302/2013 s/p thyroidectomy with TMadiha Mcknight [facility] Dr. Delcid cancer f/u [facility] Papillary thyroid carcinoma (03/30/13) Restless legs 03/03/13 requip STEMI (ST elevation myocardial infarction) 07/05/17 UTI (urinary tract infection) Surgical History Colonoscopy - MAC 01/16/14-[facility] EGD - MAC (03/05/14) H/O esophagogastroduodenoscopy 07/26/13 Open Carpal Tunnel release 04/03/16- RIGHT S/P carpal tunnel release 04/03/16 right S/P thyroidectomy 07/26/12 [facility] Dr. Mcknight S/P trigger finger release 04/03/16 trigger little finger of right hand Thyroidectomy, 2012 [facility] Dr. Manny Mcknight Trigger Finger release 04/03/16; RIGHT SMALL FINGER Family History Mother Alcohol abuse Father , 82? Diabetes Brother , 47 Alcohol abuse Lung cancer Maternal Grandfather , 80? No problems noted. Paternal Grandfather No problems noted. Maternal Grandmother , 78? Cancer Paternal Grandmother No problems noted. Son Substance abuse Daughter No problems noted. Social History Smoking/Tobacco Use Status: Former Tobacco Use tobacco type: cigarettes Quit Date: 07/26/77 Tobacco: How many years used: 15 Second Hand Exposure: Yes Smoking risk assessment performed?: Yes Alcohol Intake: former Drug use: Never Substance use type: does not use Counseling given: No Caregiver/Support person: No Household members: spouse Housing: house Communication Needs: Hard of Hearing Do you need help understanding health information?: Often current occupation: WORKING AT [employer]. Pets and animals: Yes Pets and animals: dog(s) Sexually active: No Do you think of yourself as: straight/heterosexual Current gender identity: male What is your relationship status?: How often do you talk on the phone with friends or family?: three or more times per week How often do you get together with friends or relatives?: twice per week How often do you attend lutheran or mandaeism services?: 1-3 times per year Do you belong to any clubs or organized social groups?: yes Panel score (0-1 are the most socially isolated patients): 3 Adelina/Pentecostalism: No preference Special adelina needs: No Seatbelt use: always Helmet use: Yes Helmet use: sometimes Drive intox or ride w/intox semi driver: No Do you feel safe at home: Yes Do you feel safe in your relationship?: Yes Exam Narrative Exam Narrative: General: Alert, well appearing, well nourished, in no acute distress. Head: Normocephalic, atraumatic Neck: Trachea midline, Neck supple. Cardiac: RRR, no murmurs appreciated Resp: No respiratory distress. CTAB. Abd: Soft, non-distended, nontender : No suprapubic tenderness. Extremities: No deformities. No peripheral edema. Neurologic: GCS 15. Moves all extremities freely against gravity Course Vital Signs Vital signs: Vital Signs Temperature 36.5 C 03/08/23 08:44 Pulse 60 03/08/23 08:44 Respiratory Rate 16 03/08/23 08:44 Blood Pressure 150/65 H 03/08/23 08:44 Pulse Oximetry 98 03/08/23 08:44 Temperature 36.5 C 03/08/23 08:44 Temperature Source Oral 03/08/23 08:44 Pulse 60 03/08/23 08:44 Respiratory Rate 16 03/08/23 08:44 Respiratory Effort Normal 03/08/23 08:47 Blood Pressure 150/65 H 03/08/23 08:44 Blood Pressure Position Supine 03/08/23 08:44 Pulse Oximetry 98 03/08/23 08:44 Oxygen Delivery Method Room Air 03/08/23 08:44 Oxygen Flow Rate 0 03/08/23 08:44
[2023-03-08] MEDS: Aspirin 81 MG CHEW 324 MG CH (09:07)
[2023-03-08 09:23] LABS: Abs Immature Grans 0.04 10^3/uL (0.0-0.06); Absolute Basophil Count 0.04 10^3/uL (0.0-0.2); Absolute Eosinophil Count 0.09 10^3/uL (0.0-0.7); Absolute Lymphocyte Count 0.77 10^3/uL (1.2-3.4); Absolute Monocyte Count 0.44 10^3/uL (0.1-0.8); Absolute Neutrophil Count 5.03 10^3/uL (1.2-6.7); Basophils % 0.6; Eosinophils % 1.4; HCT 45.9 % (40.0-50.0); HGB 15.1 g/dL (13.5-17.5); Immature Grans % 0.6; MCHC 32.9 % (32.0-36.0); MCV 91 fL (80-95); Monocytes % 6.9; Neutrophils % 78.5; Platelet Count 178 10^3/uL (130-400); RBC 5.04 10^6/uL (4.36-5.78); RDW 15.5 % (11.8-14.1); RDW-SD 51.8 fL; WBC 6.41 10^3/uL (4.4-10.8)
[2023-03-08 09:45] LABS: ALT 38 U/L (16-63); AST 23 U/L (15-37); Alkaline Phosphatase 94 U/L (46-116); Anion Gap 5.3 mmol/L (3-11); BUN 27 mg/dL (7-18); Bilirubin, Total 0.6 mg/dL (0.2-1.0); CO2 32.7 mmol/L (21.0-32.0); CREATININE 1.4 mg/dL (0.70-1.30); Calcium 9.7 mg/dL (8.5-10.1); Chloride 104 mmol/L (98-107); Estimated GFR 51.77 (mL/min/1.73m2); Glucose 161 mg/dL (74-106); NT-proBNP 499 pg/mL (<300); Potassium 4.8 mmol/L (3.5-5.1); Sodium 142 mmol/L (136-145); Total Protein 7.9 g/dL (6.4-8.2); Troponin I < 50 ng/L (<or=60)
--- NOTE | 2023-03-08 11:45 | RT.EKG_ITS ---
APPROVED REPORT Exam: Resting ECG Reason for Exam: repeat Patient Location: E HR:61 bpm ECG Measurements Heart Rate 61 AXIS CO 185 P 41 QRSd 107 QRS -72 QT 422 T 110 QTc 424 Conclusion Sinus rhythm..., V-rate 60- [address]. [address] segment or T wave abnormalities to suggest occlusive PR No dynamic changes compared to prior 03/08/23 0848
[2023-03-08 12:21] LABS: Troponin I < 50 ng/L (<or=60)
--- NOTE | 2023-03-08 13:01 | HPE_ITS ---
Date of service: 03/08/23 Time of Service: 13:01 Assessment and Plan Assessment and plan (1) Pre-syncope: Status: Acute Assessment and plan: Will be admitted on telemetry. Echocardiogram pending. Will consult physical therapy for evaluation as it sounds like his symptoms are consistent with vertigo. Cycle serial troponins. Fall precautions (2) Ischemic cardiomyopathy: Status: Chronic Assessment and plan: Stable. He is fully anticoagulated on Eliquis no DVT prophylaxis needed contin ue home medications (3) Type 2 diabetes mellitus with hyperglycemia: Status: Chronic Assessment and plan: We will continue home diabetes management regimen monitor blood sugars before meals and at bedtime provide sliding scale coverage as needed Anticipated discharge to home with no services tomorrow if he remains medically stable Admission discussed with History of Present Illness History of Present Illness Chief Complaint: presyncope Narrative: This is a 78-year-old male patient with a complex past medical history significant for diabetes mellitus type 2 ischemic cardiomyopathy, non-STEMI, hypertension, chronic anticoagulation who presented to the emergency department.? The states the symptoms have been going on for possibly up to 3 weeks.? Patient states his main symptom is dizziness.? His work-up in the emergency department was unrevealing.? Due to his past medical history the emergency department did request hospitalist admission for observation.? He will be admitted on telemetry to hospitalist services Review of Systems All systems reviewed & are unremarkable except as noted in HPI and below PFSH All Active Problems (Updated 03/09/23 @ 11:25 by Laura Ramos NP) Vertigo (Acute) Pre-syncope (Acute) Hematuria (Acute) Weakness (Acute) Low iron (Acute) Presence of external hearing aid (Acute) CAD (coronary artery disease) (Chronic) Pre-op testing (Acute) Respiratory failure with hypoxia (Acute) Diabetes (Chronic) Hypothyroidism (Chronic) Acute non-ST elevation myocardial infarction (NSTEMI) (Acute) CHF exacerbation (Acute) Renal function impairment (Chronic) Impacted cerumen, bilateral (Acute) Diarrhea (Acute) Dizziness (Acute) Primary osteoarthritis, left hand (Acute) Conductive hearing loss, external ear (Acute) Diarrhea (Acute) Restless legs (Acute 03/13/13) Afib (Chronic) Chronic anticoagulation (Acute) Urinary retention (Chronic 06/28/14) Type 2 diabetes mellitus with hyperglycemia (Chronic 12/24/15) Tubular adenoma of colon (Chronic 07/03/14) 01/06 Sleep apnea (Chronic) study 02/06/14-severe obstructive sleep apnea; CPAP Sensorineural hearing loss, bilateral (Chronic 11/28/12) Dr Vega; B/L hearing aids Psoriasis (Chronic 03/13/13) 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) [facility] Hypothyroidism associated with surgical procedure (Chronic 04/10/14) [place] [facility] [place]: papillary carcinoma Peripheral neuropathy (Chronic 01/03/15) Nontoxic multinodular goiter (Chronic 09/12/12) Malignant melanoma of skin (Chronic 09/12/12) [facility] [facility] HAS F/U IN SEPTEMBER 2012 & annually MELANOMA TO BACK Left carpal tunnel syndrome (Chronic 06/30/17) Ischemic cardiomyopathy (Chronic 07/05/17) 07/05/17 LVEF=29% Hypomagnesemia (Chronic 04/18/13) Clinically manifested with leg cramps; initiated Mg++ Oxide 03/2013 Heartburn (Chronic 03/13/13) PPI prn Nisson fundiplication 06/08 Essential hypertension (Chronic 11/07/12) Diabetic neuropathy (Chronic 06/28/14) Depression (Chronic) 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 Taylor letter GE junction; pending path results BPH NOS w/o ur obs/LUTS (Chronic) ASHD (arteriosclerotic heart disease) (Chronic 07/05/17) [place] [facility]; Medical History (Updated 03/09/23 @ 11:25 by Laura Ramos NP) Anemia (07/23/14) BPH (benign prostatic hyperplasia) Bruising (03/07/18) on coumadin Carpal tunnel syndrome on both sides 01/22/15 Cerumen debris on tympanic membrane of right ear Confusion 08/03/17 Deep vein thrombosis (DVT) of tibial vein of right lower extremity 08/03/17 unspecified chronicity partial occlusion 07/29/17 Diabetes mellitus Functional disorder of stomach 09/12/12 GERD (gastroesophageal reflux disease) History of tobacco use Quit 1970s Hyperlipemia Hypertension Ischemic leg 09/02/17 Malignant melanoma of skin, unspecified in situ; neg. sentinel node Night cramps 04/11/13 Obesity MARIA VICTORIA (obstructive sleep apnea) Pain at injection site Papillary thyroid carcinoma 03/30/1302/2013 s/p [place]roidectomy with Vernon Mck[place] [facility]id [place] [facility] Papillary thyroid carcinoma (03/30/13) Restless legs 03/03/13 requip STEMI (ST elevation myocardial infarction) 07/05/17 UTI (urinary tract infection) Surgical History Colonoscopy - MAC [place] [place] - MAC (03/05/14) H/O esophagogastroduodenoscopy 07/26/13 Open Carpal Tunnel release 04/03/16- RIGHT S/P carpal tunnel release 04/03/16 right S/P thyroidectomy 07/26/12 [facility] S/P trigger finger release 04/03/16 trigger little finger of right hand Thyroidectomy, 2012 [facility] Manny Mcknight Trigger Finger release 04/03/16; RIGHT SMALL FINGER Family History Mother Alcohol abuse Father , 82? Diabetes Brother , 47 Alcohol abuse Lung cancer Maternal Grandfather , 80? No problems noted. Paternal Grandfather No problems noted. Maternal Grandmother , 78? Cancer Paternal Grandmother No problems noted. Son Substance abuse Daughter No problems noted. Social History Smoking/Tobacco Use Status: Former Tobacco Use tobacco type: cigarettes Quit Date: 07/26/77 Tobacco: How many years used: 15 Second Hand Exposure: Yes Smoking risk assessment performed?: Yes Alcohol Intake: former Drug use: Never Substance use type: does not use Counseling given: No Caregiver/Support person: No Household members: spouse Housing: house Communication Needs: Hard of Hearing Do you need help understanding health information?: Often current occupation: WORKING AT [employer]. Pets and animals: Yes Pets and animals: dog(s) Sexually active: No Do you think of yourself as: straight/heterosexual Current gender identity: male What is your relationship status?: How often do you talk on the phone with friends or family?: three or more times per week How often do you get together with friends or relatives?: twice per week How often do you attend protestant or christianity services?: 1-3 times per year Do you belong to any clubs or organized social groups?: yes Panel score (0-1 are the most socially isolated patients): 3 Adelina/Bahai: No preference Special adelina needs: No Seatbelt use: always Helmet use: Yes Helmet use: sometimes Drive intox or ride w/intox 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 Do you feel safe at home: Yes Do you feel safe in your relationship?: Yes Meds Allergies and Home Medications Allergies Allergy/AdvReac Type Severity Reaction Status Date / Time lisinopril AdvReac cough Verified 03/08/23 08:48 Home Medications Medication Instructions Recorded Confirmed Type blood-glucose meter #1 ea 07/24/14 03/08/23 History lancets 33 gauge (BD Ultra Fine ##400 10/25/17 03/08/23 Rx Lancets) acetaminophen 650 mg 2 tab PO BID PRN 11/02/17 03/08/23 History tablet,extended release turmeric root extract 500 mg 500 mg PO BID 12/13/18 03/08/23 History capsule magnesium oxide 500 mg capsule 500 mg PO DAILY #180 tabs 10/28/20 03/08/23 History ascorbic acid (vitamin C) 500 mg 500 mg PO DAILY 12/31/20 03/08/23 History tablet (Vitamin C) ferrous sulfate 325 mg (65 mg 325 mg PO .4 day per week 03/27/21 03/08/23 History iron) tablet nitroglycerin 0.4 mg sublingual 0.4 mg sublingual Q5M PRN 12/15/21 03/08/23 History tablet sacubitril 24 mg-valsartan 26 mg 1 tab PO BID 02/25/22 03/08/23 History tablet (Entresto) atorvastatin 10 mg tablet 10 mg PO .COMPLEX #90 tab-caps 04/13/22 03/08/23 Rx blood sugar diagnostic (Blood #400 strips 05/25/22 03/08/23 Rx Glucose Test strips) insulin glargine 100 unit/mL (3 35 unit (0.35 mL) subcut DAILY #30 06/10/22 03/08/23 Rx mL) subcutaneous pen (Lantus mL Solostar U-100 Insulin) levothyroxine 175 mcg tablet 175 mcg PO DAILY #102 tab-caps 07/06/22 03/08/23 Rx metformin 850 mg tablet 850 mg PO BID #180 tabs 07/30/22 03/08/23 Rx torsemide 20 mg tablet 10 mg PO DAILY #45 tabs 07/30/22 03/08/23 Rx pen needle, diabetic 31 gauge x ##400 07/31/22 03/08/23 Rx 5/16 (Pen Needle) metoprolol succinate 25 mg 25 mg PO DAILY 08/03/22 03/08/23 History tablet,extended release 24 hr apixaban 5 mg tablet 5 mg PO BID #180 tabs 10/27/22 03/08/23 Rx clopidogrel 75 mg tablet 75 mg PO DAILY #90 tabs 10/27/22 03/08/23 Rx diphth,pertus(acell),tetanus 2.5 0.5 ml IM ONCE #0.5 mL 10/27/22 03/08/23 Rx Lf unit-8 mcg-5 Lf/0.5mL IM syringe empagliflozin 10 mg tablet 10 mg PO DAILY #90 tabs 10/27/22 03/08/23 Rx clobetasol 0.05 % scalp solution 1 applic topical DAILY PRN rash 12/30/22 03/08/23 Rx #50 mL insulin lispro 100 unit/mL 25 unit (0.25 mL) subcut AC #30 mL 01/11/23 03/08/23 Rx subcutaneous pen (Humalog KwikPen (U-100) Insulin) albuterol sulfate 90 mcg/actuation 2 puff inhalation QID PRN 01/21/23 03/08/23 Rx aerosol inhaler (Proventil HFA) shortness of breath or wheezing #8.5 grams furosemide 40 mg tablet 40 mg PO QAM #14 tabs 01/21/23 03/08/23 Rx meclizine 25 mg tablet 25 mg PO TID PRN dizziness #20 tabs 03/09/23 Rx Exam Const General: cooperative, healthy appearing, comfortable and no acute distress Nutritional Appearance: average body habitus Orientation: alert, awake and oriented x3 HENMT Head: normal to inspection, normocephalic and atraumatic Mouth: oral mucosae normal Chest Chest: normal inspection of the chest Resp Effort & Inspection: normal respiratory effort Auscultation: clear to auscultation bilaterally Cardio Rate: regular rate Rhythm: regular rhythm Heart Sounds: no murmurs GI Inspection: normal to inspection Palpation: soft Extrem General: normal to inspection, full ROM and no pedal edema Results Labs 03/08/23 09:13 03/08/23 09:13 Labs: Laboratory Results - last 24 hr 03/08/23 03/08/23 03/08/23 09:13 09:13 11:56 WBC 6.41 RBC 5.04 Hgb 15.1 Hct 45.9 MCV 91 MCH 30.0 MCHC 32.9 RDW 15.5 H Plt Count 178 MPV 9.0 Immature Gran % 0.6 Neutrophils % 78.5 Lymphocytes % 12.0 Monocytes % 6.9 Eosinophils % 1.4 Basophils % 0.6 Nucleated RBC % 0.0 Absolute Neutrophils 5.03 Absolute Lymphocytes 0.77 L Absolute Monocytes 0.44 Absolute Eosinophils 0.09 Absolute Basophils 0.04 Sodium 142 Potassium 4.8 Chloride 104 Carbon Dioxide 32.7 H Anion Gap 5.3 BUN 27 H Creatinine 1.4 H Est GFR (CKD-EPI 2020) 51.77 Glucose 161 H Calcium 9.7 Magnesium 2.0 Total Bilirubin 0.6 AST 23 ALT 38 Alkaline Phosphatase 94 Troponin I < 50 < 50 NT-Pro-B Natriuret Pep 499 H Total Protein 7.9 Albumin 4.0 Last Vital Signs Temp 36.5 C 03/08/23 08:44 Pulse 62 03/08/23 12:01 Resp 15 03/08/23 12:20 BP 152/60 H 03/08/23 12:01 Pulse Ox 96 03/08/23 12:20 Time Spent Time spent with Patient: 40-54 minutes Time was spent: preparing to see the patient(eg.review tests), obtaining and/or reviewing separately otained hiistory, ordering medications,tests, procedures, referring, communicating with other health palliative care specialist, indepentently interpreting results and counseling the patient
--- NOTE | 2023-03-08 15:42 | PT.INIE ---
PT Notes Visit Reasons: Presyncope Date: 03/08/23 Referring Doctor: Laura Ramos NP PT Orders: ? vertigo Precautions: standard Patient Profile/Admitting Diagnosis: Pt is a 78 male who presented to the ER this am with c/o dizziness and nausea. He has a cardiac history and is undergoing continued cardiac work up. PT consult requested for evaluation of possible vestibular component. PMHX: extensive medical history as noted below. 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 Social History/Home Situation: Patient lives in a private home with his . He works for the [employer]. Equipment owned/DME: none SUBJECTIVE: Don complains of dizziness and imbalance that began about a week ago. He has had low grade, spinning type dizziness that occurs with movement, which became more pronounced this morning, prompting his visit to the ER. He notices it most significantly with transitioning from sitting to standing, but also when turning his head. States that he's been having to hold onto furniture to walk for the past couple of days. Denies underlying balance impairments, visual changes, shortness of breath, chest pain. Denies sudden hearing loss, tinnitus. Admits to nausea and one episode of vomitting. He states that he personally feels that symptoms are related to his recent COVID booster. Symptoms: Onset of symptoms: last week, increased this morning Trauma: No Exacerbating Factors: sitting to standing, turning head Relieving Factors: rest Types of Dizziness: room-spinning Headaches: No Balance Deficits: Yes Hearing Loss: No sudden loss (admits to chronic impairment, with bilat hearing aids) Tinnitis: No OBJECTIVE: General Observation: Resting in chair at initiation of session. No lines. Mental Status: A&Ox3. Pleasant and cooperative. Pain: denies Vital Signs: BP sittin/85, HR 65 BP standing 174/78, HR 65 ROM Cervical Spine : restricted in all planes. No provocation of dizziness with any cervical motion Vertebral Artery Screening: Negative Sustained End Range of Motion: does not elicit dizziness ROM RUE: WFL L UE: WFL R LE: WFL LLE: WFL NEUROLOGICAL: Coordination: rapid alternating movements of UEs and LEs are normal Fine Motor: thumb to digit tapping is normal Rhomberg: (+) For posteriorly directed LOB OCCULOMOTOR Visual Tracking: normal Saccades: normal VESTIBULAR TESTING Gerhard-Halpike Testing (BBPV): (+) to the left, with torsional nystagmus noted Supine Roll Test: mildly (+) to the right BED MOBILITY/TRANSFERS: Supine-sit: independent Sit-supine: independent Sit-Stand: independent Stand-sit: independent Bed-Chair: supervision with FWW Chair-bed: supervision with FWW GAIT: ambulates 10' with FWW, supervision BALANCE: Static sitting: normal Dynamic Sitting: normal Static Standing: good Dynamic Standing: fair SPECIAL TESTS: Mobility Limitations Standardized Measure: [facility] AM -PAC ?6 clicks? Basic Mobility Inpatient Short Form: raw score: 21 CMS score: 29% impairment INFORMED CONSENT/EDUCATION: Pt instructed in purpose of PT Consult and plan of care. TREATMENT: Initial Evaluation (90492) Neuromuscular Re-education ([id number]): Performed BBQ roll for right horizontal canal x 1, with minor symptoms during positional change. Performed Leodan maneuver for left posterior canal BPPV x2, with 90 second holds in each position, with good tolerance. He demonstrates sustained nystagmus in left Gerhard-Halpike position during each repetition, lasting beyond 60 seconds. PATIENT EDUCATION PRECAUTIONS POST TREATMENT: HOB elevated > 45 degrees ASSESSMENT: Patient is a 78 year old male referred to physical therapy services with dizziness and imbalance. Patient presents with clinical signs and symptoms consistent with left posterior canal BPPV vs vestibular neuronitis. He responded favorably to Leodan maneuver today, however did demonstrate sustained nystagmus, and has recently had COVID vaccine booster, which could indicate a component of vestibular neuronitis. He also continues to undergo cardiac work up, which could also be contributing to symptoms. His response today certainly indicates a component of vestibular dysfunction, and he requires skilled PT intervention to continue evaluating and treating symptoms, as well as addressing underlying balance impairments. Will plan to re-evaluate first thing in the morning and continue treatment as symptoms dictate. He currently demonstrated by the following impairment level findings: 1. dizziness with functional mobility 2. balance impairments 3. torsional nystagmus with vestibular testing Impairments are contributing to the following functional limitations: 1. (+) Dundee-Halpike test 2. unable to walk unassisted 3. increased fall risk Patient is assessed as a Moderate 12563 complexity based on the following: History: 78 year old male presenting with room-spinning dizziness and imbalance, with symptoms consistent with vestibular dysfunction, likely BPPV vs vestibular neuronitis. Examination: Functional limitations as noted above Presentation: evolving Decision Making: moderate complexity GOALS 1. Supine-sit: Independent 2. Sit-Supine: Independent 3. Sit-Stand:Independent 4. Stand-sit: Independent 5. Bed-Chair: Independent 6. Chair-bed:Independent 7. Gait: supervision x 150' without AD PLAN OF CARE/TREATMENT PLAN: 1-2x/day, 7 days/ week Plan of care has been reviewed with the EXTRACTOR OPERATOR providing the service under Physical therapy direction. Initiate PT plan of care for vestibular rehabilitation, including canalith repositioning and habituation exercises. Will also instruct patient in balance retraining activities and progressive dynamic balance activities to improve safety and independence with ambulation. Will continue monitoring symptoms. DISCHARGE RECOMMENDATIONS: home with outpatient PT for vestibular rehab TREATMENT TIME/MINUTES/CODES: 2:15-3:00 ([id number], [id number]) Thank you for this referral. Please do not hesitate to contact me with any questions or concerns regarding this patient's POC. Manuela Reilly, PT, DPT [facility] PFS All Active Problems (Updated 03/08/23 @ 12:34 by Maddison Smith MD) Pre-syncope (Acute) Hematuria (Acute) Weakness (Acute) Low iron (Acute) Presence of external hearing aid (Acute) CAD (coronary artery disease) (Chronic) Pre-op testing (Acute) Respiratory failure with hypoxia (Acute) Diabetes (Chronic) Hypothyroidism (Chronic) Acute non-ST elevation myocardial infarction (NSTEMI) (Acute) CHF exacerbation (Acute) Renal function impairment (Chronic) Impacted cerumen, bilateral (Acute) Diarrhea (Acute) Dizziness (Acute) Primary osteoarthritis, left hand (Acute) Conductive hearing loss, external ear (Acute) Diarrhea (Acute) Restless legs (Acute 03/13/13) Afib (Chronic) Chronic anticoagulation (Acute) Urinary retention (Chronic 06/28/14) Type 2 diabetes mellitus with hyperglycemia (Chronic 12/24/15) Tubular adenoma of colon (Chronic 07/03/14) 01/06 Sleep apnea (Chronic) study 02/06/14-severe obstructive sleep apnea; CPAP Sensorineural hearing loss, bilateral (Chronic 11/28/12) Dr Vega; B/L hearing aids Psoriasis (Chronic 03/13/13) 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) [facility] Hypothyroidism associated with surgical procedure (Chronic 04/10/14) 03[place] [facility] [place]: papillary carcinoma Peripheral neuropathy (Chronic 01/03/15) Nontoxic multinodular goiter (Chronic 09/12/12) Malignant melanoma of skin (Chronic 09/12/12) [facility] [place] HAS F/U IN SEPTEMBER 2012 & annually MELANOMA TO BACK Left carpal tunnel syndrome (Chronic 06/30/17) Ischemic cardiomyopathy (Chronic 07/05/17) 07/05/17 LVEF=29% Hypomagnesemia (Chronic 04/18/13) Clinically manifested with leg cramps; initiated Mg++ Oxide 03/2013 Heartburn (Chronic 03/13/13) PPI prn Nisson fundiplication 06/08 Essential hypertension (Chronic 11/07/12) Diabetic neuropathy (Chronic 06/28/14) Depression (Chronic) 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 Taylor letter GE junction; pending path results BPH NOS w/o ur obs/LUTS (Chronic) ASHD (arteriosclerotic heart disease) (Chronic 07/05/17) [place] [place] [facility] Medical History (Updated 03/08/23 @ 12:34 by Maddison Smith MD) Anemia (07/23/14) BPH (benign prostatic hyperplasia) Bruising (03/07/18) on coumadin Carpal tunnel syndrome on both sides 01/22/15 Cerumen debris on tympanic membrane of right ear Confusion 08/03/17 Deep vein thrombosis (DVT) of tibial vein of right lower extremity 08/03/17 unspecified chronicity partial occlusion 07/29/17 Diabetes mellitus Functional disorder of stomach 09/12/12 GERD (gastroesophageal reflux disease) History of tobacco use Quit 1970s Hyperlipemia Hypertension Ischemic leg 09/02/17 Malignant melanoma of skin, unspecified in situ; neg. sentinel node Night cramps 04/11/13 Obesity MARIA VICTORIA (obstructive sleep apnea) Pain at injection site Papillary thyroid carcinoma 03/30/1302/2013 s/p thyroidectomy with TMadiha Tolbertacchpau [facility] [place] [facility] [place] Papillary thyroid carcinoma (03/30/13) Restless legs 03/03/13 requip STEMI (ST elevation myocardial infarction) 07/05/17 UTI (urinary tract infection) Surgical History Colonoscopy - MAC [place] [place] ([place]/14) H/O esophagogastroduodenoscopy 07/26/13 Open Carpal Tunnel release 04/03/16- RIGHT S/P carpal tunnel release 04/03/16 right S/P thyroidectomy 07/26/12 [facility] [place] S/P trigger finger release 04/03/16 trigger little finger of right hand Thyroidectomy, 2012 [facility] [place]anny Mcknight Trigger Finger release 04/03/16; RIGHT SMALL FINGER
[2023-03-08 16:03] LABS: Troponin I < 50 ng/L (<or=60)
--- NOTE | 2023-03-08 17:02 | NUR.NOTE ---
Nursing Note: pt is very concerned about his diabetic medications. states that you guys always screw up my blood sugar. i am spending weeks after i get discharged trying to fix my sugars!. this rn gave charge nurse a list of his medications for home and she provided it to the classics teacher javier lund
[2023-03-08] MEDS: Insulin Aspart 300 UNITS/3 ML PEN SC (17:25)
[2023-03-08] MEDS: Insulin Aspart 300 UNITS/3 ML PEN 25 UNITS SC (17:27)
[2023-03-08] MEDS: Atorvastatin 10 MG TAB PO (20:02)
[2023-03-08] MEDS: Sacubitril/Valsartan 24 mg/26 mg TAB 1 EACH PO (20:02)
[2023-03-08] MEDS: Magnesium Oxide 400 MG TAB PO (20:02)
[2023-03-08] MEDS: Apixaban 5 MG TAB PO (20:02)
[2023-03-08] MEDS: Meclizine 25 MG TAB PO (21:37)
[2023-03-08] MEDS: Insulin Glargine 300 UNITS/3 ML PEN 35 UNITS SC (22:26)
--- NOTE | 2023-03-09 | DI.US_ITS ---
APPROVED REPORT EXAM: Comprehensive 2D, Doppler, and color-flow Echocardiogram Patient Location: In-Patient Room/Bed: 230 [address] Developer: Mario Nguyễn RDCS Indications: Presyncope Echo Enhancing Agent Indication: Endocardial border delineation Agent(s) / Amount(s) Used: Definity 10.0 cc Comments: Contrast study was performed with 1 IV injection of 2cc of diluted definity. Other Information Study Quality: Fair. Technically limited study due to body habitus. Conclusion Normal left ventricular wall thickness and chamber size. Ejection fraction is approximately 40% with anteroapical and apical akinesis Normal right ventricular size and systolic function Both atria appear normal in size Aortic valve is trileaflet and sclerotic without stenosis or regurgitation No annular calcification, mild mitral regurgitation Compared to an echocardiogram from 2021 LV function may be slightly better Wall motion Left Ventricle The left ventricle is normal size. Left ventricular systolic function is mildly to moderately decreas ed. Definity microbubble contrast injection was given. There is normal left ventricular wall thicknes s. There are anterior apical and apical wall motion abnormalities There is no ventricular septal defe ct visualized. LVEF is 40 %. Right Ventricle The right ventricle is normal size. Right ventricular systolic function is grossly normal. Unable to assess PA pressure. Atria The left atrium size is normal. The right atrium size is normal. The interatrial septum is intact wit h no evidence for an atrial septal defect. Aortic Valve The Aortic valve is sclerotic. Aortic valve is trileaflet. There is no aortic valvular stenosis. No a ortic regurgitation is present. Mitral Valve Mild mitral annular calcification. No evidence of mitral valve stenosis. Mild mitral regurgitation. Tricuspid Valve The tricuspid valve is normal in structure. There is no tricuspid valve stenosis. There is no tricusp id valve regurgitation noted. Pulmonic Valve The pulmonary valve is normal in structure. There is no pulmonic valvular stenosis. Mild to moderate pulmonic regurgitation. Great Vessels Aortic root is normal in size. Ascending aorta is not well visualized. Aortic arch is normal in calib er. IVC is normal in size and collapses >50% with inspiration. Pericardium There is no pericardial effusion. 2D Dimensions IVSD d PLAX 0.96 cm M: 0.6-1.2 LVPW d PLAX 0.91 cm M: 0.6 - 1.2 LVID d PLAX 5.54 cm M: 4.2 - 5.8 LVDs 4.30 cm M: 2.5 - 4.0 Ao Root d 3.78 cm M: 3.1 - 3.7 RA Area A4C 16.11 cm2 LV EF [place] 44.3 % FS 22.20 % M-Mode TAPSE 2.15 cm (M/F) >1.7 LV Diastology MV E' medial 0.044 (>0.07 m/s) E/A Ratio 0.6 LV E/e MED 13.27 (<14) MV E Vmax 0.59 (0.4-1.3 m/s) MV E' lateral 0.058 (>0.1 m/s) MV A Vmax 1.00 (0.4-1.3 m/s) LV E/e LAT 10.02 (<14) MV E/E' medial 13.27 MV E/E' lateral 10.02 MV (E/E' average) 11.42 Aortic Valve LVOT Vmax 0.87 m/s AoV Area Vmax 3.07 cm2 LVOT Peak Grad 3.0 mmHg LVOT Mean Grad 1.7 mmHg LVOT Diam s 2.15 cm AoV Peak Grad 4.3 mmHg LVOT SV 71.02 mL AoV Mean Grad 2.6 mmHg AoV Area VTI 2.86 cm2 Mitral Valve MV DT 270 (160-240 msec) Pulmonary Valve PV Mean Grad 1.8 mmHg RVOT Peak Gr. 1.33 mmHg RVOT Mean Gr. 0.75 mmHg RVOT VTI 0.122 m RVOT Vmax 0.58 m/s Tricuspid Valve RA Pressure 3.00 mmHg
[2023-03-09 03:14] VITALS: BP 158/78; PULSE 66; RESP 18; TEMP 37.1; O2SAT 94
[2023-03-09] MEDS: Levothyroxine 175 MCG TAB PO (06:33)
[2023-03-09 07:00] VITALS: PULSE 62
[2023-03-09 07:45] VITALS: BP 156/81; PULSE 66; TEMP 35.9; O2SAT 96
--- NOTE | 2023-03-09 08:07 | PT.INTREAT ---
PT Notes Visit Reasons: Presyncope Inpatient Physical Therapy Treatment Note [facility] Date: 03/09/23 PRECAUTIONS: standard SUBJECTIVE: Don states that he's feeling good this morning. He's anxious to return home. He states that he felt a little off after PT evaluation yesterday, but that symptoms improved throughout the afternoon. He is feeling back to normal this morning. He has been walking to the bathroom on his own, using a walker because I think I'm supposed to. States that his balance feels back to baseline. He reports baseline balance impairments related to his toe amputations, and works out in our [facility] 2x/week for balance retraining. OBJECTIVE: ? PAIN: denies Neuromuscular Re-education ([id number]): Activities that facilitate re-education of movement balance, posture, coordination, and proprioception or kinesthetic sense, requiring skilled tactile and verbal cues Cervical ROM non-symptom provoking Head thrust (-) Rhomberg (-), with patient able to maintain position independently x 30 seconds BED MOBILITY/TRANSFERS? Rolling L/R: independent Supine-sit: independent? Sit-supine: independent ? Sit-stand: independent, no dizziness? Stand-sit: independent ? Bed-Chair: independent ? Chair-bed: independent Provided skilled cues and instruction on performance and technique throughout. Able to progress away from FWW, and ambulate independently ? GAIT? Assistive Device: none ? Weight bearing: full Assist: supervision ? Distance:? 300' ? Deviation: flat foot through all phases of gait, slightly wided KEATON. No significant path deviation or ataxia. Able to perform head turns with straight plane ambulation with minor slowing of gait, but otherwise no significant deviation. ? ASSESSMENT:? Resolution of symptoms of dizziness. Significant improvements in balance and functional mobility, with return to baseline function. PLAN: Continue monitoring during hospital stay and instruct in balance retraining activities to maximize safety and mobility. Will address further symptoms of dizziness should they arise. He's established in our [facility], and I've recommended he reach out to Henrique Boogie, PT, over there if symptoms of dizziness persist upon return home, and we can address that on an outpatient basis. TREATMENT CODE/TIME: 7:45-8:05 Manuela Reilly, PT, DPT [facility]
[2023-03-09] MEDS: Sacubitril/Valsartan 24 mg/26 mg TAB 1 EACH PO (08:12)
[2023-03-09] MEDS: Apixaban 5 MG TAB PO (08:12)
[2023-03-09] MEDS: Clopidogrel 75 MG TAB PO (08:12)
[2023-03-09] MEDS: Magnesium Oxide 400 MG TAB PO (08:13)
[2023-03-09] MEDS: Empaglifozin 10 MG TAB PO (08:13)
[2023-03-09] MEDS: Metoprolol CR 25 MG TABCR PO (08:13)
[2023-03-09] MEDS: Insulin Aspart 300 UNITS/3 ML PEN SC (08:15)
[2023-03-09] MEDS: Insulin Aspart 300 UNITS/3 ML PEN 25 UNITS SC ×2 (08:16→12:06)
[2023-03-09 11:08] VITALS: BP 140/73; PULSE 66; TEMP 36.4; O2SAT 96
--- NOTE | 2023-03-09 11:24 | DSE_ITS ---
Date of service: 03/09/23 Time of Service: 11:24 DS: Diagnosis Discharge Diagnosis (1) Vertigo: Status: Acute Discharge Plan Disposition Patient Disposition: Home Condition: Improving Discharge Details Reason For Visit: Presyncope Admit Date/Time: 03/08/23 12:35 Admit Provider: Nick Cohen Attending Provider: Nick Cohen Primary Care Provider: Lovely Vicente Hospital Course Hospital Course: This is a 78-year-old male patient with a complex past medical history significant for diabetes mellitus type 2 ischemic cardiomyopathy, non-STEMI, hypertension, chronic anticoagulation who presented to the emergency department. The states the symptoms have been going on for possibly up to 3 weeks. Chito chapa states his main symptom is dizziness. His work-up in the emergency department was unrevealing. Due to his past medical history the emergency department did request hospitalist admission for observation. He was admitted on telemetry serial troponins remained negative he was evaluated by physical therapy who has made some recommendations for balance training. They did do Leodan maneuver to try to help with some of his symptoms. He was started on meclizine and overnight remained medically stable. This morning he states he feels improved and back to his baseline. He did have an echocardiogram reading is pending at time of discharge. He has had no dysrhythmias on telemetry and feels at his baseline and able to be discharged to home. He has been referred outpatient to physical therapy if needed for further symptoms. 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 He is going home with no new services Discharge discussed with Dr. Aguilar Home Meds and New Rx's Prescriptions: New meclizine 25 mg tablet 25 mg PO TID PRN (Reason: dizziness) Qty: 20 0RF Continued ferrous sulfate 325 mg (65 mg iron) tablet 325 mg PO .4 day per week diphth,pertus(acell),tetanus 2.5-8-5 Lf-mcg-Lf/0.5mL syringe 0.5 ml IM ONCE Qty: 0.5 0RF Rx Instructions: as a single dose apixaban 5 mg tablet 5 mg PO BID Qty: 180 5RF empagliflozin 10 mg tablet 10 mg PO DAILY Qty: 90 5RF clopidogrel 75 mg tablet 75 mg PO DAILY Qty: 90 5RF turmeric root extract 500 mg capsule 500 mg PO BID torsemide 20 mg tablet 10 mg PO DAILY Qty: 45 4RF metformin 850 mg tablet 850 mg PO BID Qty: 180 4RF (DME) blood-glucose meter 1 EACH misc 1 ea Miscellaneous PRN Qty: 1 Rx Instructions: For Accucheck Compact meter DIAGNOSIS CODE 250.01 (DME) lancets [BD Ultra Fine Lancets] 1 EACH misc 1 ea Sub-Q AC & HS Qty: 400 6RF Rx Instructions: Labile blood sugar E11.65 DISPENSE: lancets acetaminophen 650 MG tablet 2 tab PO BID PRN magnesium oxide 500 mg capsule 500 mg PO DAILY Qty: 180 ascorbic acid (vitamin C) [Vitamin C] 500 mg tablet 500 mg PO DAILY Patient Comments: 05/09/15- Takes during winter months. aj nitroglycerin 0.4 mg tablet, sublingual 0.4 mg sublingual Q5M PRN Rx Instructions: do not exceed 3 doses per episode Entresto 24-26 mg tablet 1 tab PO BID Rx Instructions: 02/25/22-Rx'd by [facility] atorvastatin 10 mg tablet 10 mg PO .COMPLEX Qty: 90 3RF Rx Instructions: 10 mg PO 5 days weekly; (DME) Blood Glucose Test Strip 1 ea Miscellaneous AC & HS Qty: 400 12RF Rx Instructions: accu check arriva METER. PT USES INSULIN. Labile DM. TESTS TID AND PRN.DIAGNOSIS CODE E11.65/Z79.4 insulin glargine [Lantus Solostar U-100 Insulin] 100 unit/mL (3 mL) insulin pen 35 unit subcut DAILY Qty: 30 4RF levothyroxine 175 mcg tablet 175 mcg PO DAILY Qty: 102 5RF Rx Instructions: 1 tab daily except 2 tabs on Wed (DME) pen needle, diabetic [Pen Needle] 31 gauge x 5/16 needle 1 ea Miscellaneous ac and hs Qty: 400 3RF Rx Instructions: 31G 3/16 pen needle to administer insulin.E11.65 ;4X/d metoprolol succinate 25 mg tablet extended release 24 hr 25 mg PO DAILY clobetasol 0.05 % solution 1 applic Topical DAILY PRN (Reason: rash) Qty: 50 5RF insulin lispro [Humalog KwikPen Insulin] 100 unit/mL insulin pen 25 unit subcut AC Qty: 30 4RF furosemide 40 mg tablet 40 mg PO QAM Qty: 14 4RF albuterol sulfate [Proventil HFA] 90 mcg/actuation HFA aerosol inhaler 2 puff inhalation QID PRN (Reason: shortness of breath or wheezing) Qty: 8.5 5RF Discharge Instructions Instructions: Vertigo (DC) Additional Instructions: continue balance retraining activities to maximize safety and mobility as directed. Referrals: [facility] [Provider Group] (established in [facility], and its recommended he reach out to Henrique Boogie PT, over there if symptoms of dizziness persist upon return home) Lovely Vicente MD, [place] [Primary Care Provider] - Activity:: Activity as Tolerated Equipment/Supplies:: No Equipment Needed Diet:: As Tolerated DS: Summary Time Spent with Patient providing and/or coordinating discharge services: Less than 30 minutes Status at Discharge Functional status at discharge: independent ambulation Overall status at discharge: patient is back to baseline Mental Status: mental status grossly normal Speech and Movement: speech and movement normal Mood: congruent mood Affect: normal affect Exam Const General: cooperative, healthy appearing, comfortable and no acute distress Nutritional Appearance: average body habitus Orientation: alert, awake and oriented x3 HENMT Head: normal to inspection, normocephalic and atraumatic Mouth: oral mucosae normal Eyes General: appearance normal, both eyes and all related structures Resp Effort & Inspection: normal respiratory effort Auscultation: clear to auscultation bilaterally Cardio Rate: regular rate Rhythm: regular rhythm GI Inspection: normal to inspection Palpation: soft and nontender Skin General skin exam: no rashes or lesions noted Neuro General: patient alert, patient awake and patient oriented x3 Motor: muscle tone normal throughout Extrem General: normal to inspection, full ROM and pedal edema Psych Mental Status: mental status grossly normal Speech and Movement: speech and movement normal Mood: congruent mood Affect: normal affect DS: Data Vitals/I&O Vitals and I&O: Vital Signs Temperature 36.4 C L 03/09/23 11:08 Temperature Source Tympanic 03/09/23 11:08 Pulse 66 03/09/23 11:08 Pulse Rhythm Regular 03/09/23 08:30 Pulse 71 03/08/23 13:40 Respiratory Rate 18 03/09/23 03:14 Respiratory Effort Normal 03/09/23 08:30 Respiratory Depth Normal 03/09/23 08:30 Respiratory Pattern Normal 03/09/23 08:30 Blood Pressure 140/73 03/09/23 11:08 Blood Pressure Mean 84 03/08/23 13:00 Blood Pressure Position Supine 03/08/23 08:44 Pulse Oximetry 96 03/09/23 11:08 Oxygen Delivery Method Room Air 03/09/23 11:08 Oxygen Flow Rate 0 03/09/23 11:08 Pain Level 0 03/09/23 08:30 Intake & Output 03/08/23 03/08/23 03/09/23 11:59 23:59 11:59 Output Total 1000 / 1000 1050 / 1050 Balance -1000 / -1000 -1050 / -1050 Weight 90.718 kg 90.95 kg 90.6 kg Output: Urine 1000 / 1000 1050 / 1050 Other: Urine Color Pale Yellow Yellow Urine Appearance Clear Clear Urine Odor None Voiding Methods Toilet Toilet Data Completed and Pending Labs on day of discharge: Labs from last 24 hours 03/08/23 03/08/23 15:34 11:56 Troponin I < 50 < 50 PFSH All Active Problems (Updated 03/09/23 @ 11:25 by Laura Ramos NP) Vertigo (Acute) Pre-syncope (Acute) Hematuria (Acute) Weakness (Acute) Low iron (Acute) Presence of external hearing aid (Acute) CAD (coronary artery disease) (Chronic) Pre-op testing (Acute) Respiratory failure with hypoxia (Acute) Diabetes (Chronic) Hypothyroidism (Chronic) Acute non-ST elevation myocardial infarction (NSTEMI) (Acute) CHF exacerbation (Acute) Renal function impairment (Chronic) Impacted cerumen, bilateral (Acute) Diarrhea (Acute) Dizziness (Acute) Primary osteoarthritis, left hand (Acute) Conductive hearing loss, external ear (Acute) Diarrhea (Acute) Restless legs (Acute 03/13/13) Afib (Chronic) Chronic anticoagulation (Acute) Urinary retention (Chronic 06/28/14) Type 2 diabetes mellitus with hyperglycemia (Chronic 12/24/15) Tubular adenoma of colon (Chronic 07/03/14) 01/06 Sleep apnea (Chronic) study 02/06/14-severe obstructive sleep apnea; CPAP Sensorineural hearing loss, bilateral (Chronic 11/28/12) Dr Vega; B/L hearing aids Psoriasis (Chronic 03/13/13) 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) [facility] Hypothyroidism associated with surgical procedure (Chronic 04/10/14) 03/2013 [facility] thyroidectomy: papillary carcinoma Peripheral neuropathy (Chronic 01/03/15) Nontoxic multinodular goiter (Chronic 09/12/12) Malignant melanoma of skin (Chronic 09/12/12) [facility] DERMATOLOGY; HAS F/U IN SEPTEMBER 2012 & annually MELANOMA TO BACK Left carpal tunnel syndrome (Chronic 06/30/17) Ischemic cardiomyopathy (Chronic 07/05/17) 07/05/17 LVEF=29% Hypomagnesemia (Chronic 04/18/13) Clinically manifested with leg cramps; initiated Mg++ Oxide 03/2013 Heartburn (Chronic 03/13/13) PPI prn Nisson fundiplication 06/08 Essential hypertension (Chronic 11/07/12) Diabetic neuropathy (Chronic 06/28/14) Depression (Chronic) 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 Taylor letter GE junction; pending path results BPH NOS w/o ur obs/LUTS (Chronic) ASHD (arteriosclerotic heart disease) (Chronic 07/05/17) 07/05/17-[facility] 3VCAD; Medical History (Updated 03/09/23 @ 11:25 by Laura Ramos NP) Anemia (07/23/14) BPH (benign prostatic hyperplasia) Bruising (03/07/18) on coumadin Carpal tunnel syndrome on both sides 01/22/15 Cerumen debris on tympanic membrane of right ear Confusion 08/03/17 Deep vein thrombosis (DVT) of tibial vein of right lower extremity 08/03/17 unspecified chronicity partial occlusion 07/29/17 Diabetes mellitus Functional disorder of stomach 09/12/12 GERD (gastroesophageal reflux disease) History of tobacco use Quit 1970s Hyperlipemia Hypertension Ischemic leg 09/02/17 Malignant melanoma of skin, unspecified in situ; neg. sentinel node Night cramps 04/11/13 Obesity MARIA VICTORIA (obstructive sleep apnea) Pain at injection site Papillary thyroid carcinoma 03/30/1302/2013 s/p thyroidectomy with Vernon Mcknight [facility] Dr. Delcid cancer f/u [facility] Papillary thyroid carcinoma (03/30/13) Restless legs 03/03/13 requip STEMI (ST elevation myocardial infarction) 07/05/17 UTI (urinary tract infection) Surgical History Colonoscopy - MAC 01/16/14-[facility] EGD - MAC (03/05/14) H/O esophagogastroduodenoscopy 07/26/13 Open Carpal Tunnel release 04/03/16- RIGHT S/P carpal tunnel release 04/03/16 right S/P thyroidectomy 07/26/12 [facility] Dr. Mcknight S/P trigger finger release 04/03/16 trigger little finger of right hand Thyroidectomy, 2012 [facility] Dr. Manny Mcknight Trigger Finger release 04/03/16; RIGHT SMALL FINGER Family History Mother Alcohol abuse Father , 82? Diabetes Brother , 47 Alcohol abuse Lung cancer Maternal Grandfather , 80? No problems noted. Paternal Grandfather No problems noted. Maternal Grandmother , 78? Cancer Paternal Grandmother No problems noted. Son Substance abuse Daughter No problems noted. Social History Smoking/Tobacco Use Status: Former Tobacco Use tobacco type: cigarettes Quit Date: 07/26/77 Tobacco: How many years used: 15 Second Hand Exposure: Yes Smoking risk assessment performed?: Yes Alcohol Intake: former Drug use: Never Substance use type: does not use Counseling given: No Caregiver/Support person: No Household members: spouse Housing: house Communication Needs: Hard of Hearing Do you need help understanding health information?: Often current occupation: WORKING AT [employer]. Pets and animals: Yes Pets and animals: dog(s) Sexually active: No Do you think of yourself as: straight/heterosexual Current gender identity: male What is your relationship status?: How often do you talk on the phone with friends or family?: three or more times per week How often do you get together with friends or relatives?: twice per week How often do you attend amish or buddhist services?: 1-3 times per year Do you belong to any clubs or organized social groups?: yes Panel score (0-1 are the most socially isolated patients): 3 Adelina/Sikh: No preference Special adelina needs: No Seatbelt use: always Helmet use: Yes Helmet use: sometimes Drive intox or ride w/intox ice delivery driver: No Do you feel safe at home: Yes Do you feel safe in your relationship?: Yes Time Spent with Patient Time Spent with Patient: <45 minutes Time was spent: preparing to see the patient(eg.review tests) and counseling the patient
--- NOTE | 2023-03-09 11:25 | CMDISCH_ITS ---
Date of service: 03/09/23 Time of Service: 11:26 LACE Index Scoring Tool Questions: Length of Stay (in days): 1 Was the patient admitted via the E.D.?: Yes Comorbidities: Diabetes w/o Complication, Congestive Heart Failure, with End Organ Damage, Any Tumor (malignant melanoma of skin) and Liver or Renal Disease E.D. Visits: 1 Answers: Total Score: 10 Risk of Readmission: High Risk Care Management Discharge Plan Reason for Hospitalization: Presyncope Discharge Plan: Don is discharged home via private vehicle with his . He will follow up with community providers and his discharge plan of care as instructed. Outpatient PT is recommended. Patient/Family Education Needs: Review discharge instructions, limitations, medications and plan to follow up with community providers. Discuss ask me thre e. Services Needed at Discharge: Physical Therapy (Outpatient PT is recommended. Patient is already established at [facility] ([place] Office).)
[2023-03-09] MEDS: Perflutren Lipid Microspheres 1.5 ML VIAL IVP (13:50)
--- NOTE | 2023-03-10 09:00 | PT.INDS ---
PT Notes Visit Reasons: Presyncope Physical Therapy Discharge Summary Treatment Dates: 03/08/23 - 03/09/23 Referring Doctor: Laura Ramos NP PT Orders: ? vertigo This document serves as a summary of care. No PT services were provided on this date. Precautions: standard Patient Profile/Admitting Diagnosis: Pt is a 78 male who presented to the ER this am with c/o dizziness and nausea. PT consult requested for evaluation of possible vestibular component. Patient was seen for 2 sessions of PT intervention over the course of 2 days. He was able to demonstrate safety and mobility sufficient to allow for safe return home with follow up with outpatient PT. PMHX: extensive medical history as noted below. 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 Social History/Home Situation: Patient lives in a private home with his . He works for [employer]. Equipment owned/DME: none SUBJECTIVE: none obtained OBJECTIVE ROM Cervical Spine : restricted in all planes. No provocation of dizziness with any cervical motion Vertebral Artery Screening: Negative Sustained End Range of Motion: does not elicit dizziness ROM RUE: WFL L UE: WFL R LE: WFL LLE: WFL ?BED MOBILITY/TRANSFERS?Rolling L/R: independent ?Supine-sit: independent?Sit-supine: independent ?Sit-stand: independent, no dizziness?Stand-sit: independent ?Bed-Chair: independent ?Chair-bed: independent ? GAIT?Assistive Device: none ?Weight bearing: full ?Assist: supervision ?Distance:? 300' ?Deviation: flat foot through all phases of gait, slightly wided KEATON. No significant path deviation or ataxia. Able to perform head turns with straight plane ambulation with minor slowing of gait, but otherwise no significant deviation.? BALANCE: Static sitting: normal Dynamic Sitting: normal Static Standing: good Dynamic Standing: good ASSESSMENT: Patient is a 78 year old male referred to physical therapy services with dizziness and imbalance. Patient presented with clinical signs and symptoms consistent with left posterior canal BPPV vs vestibular neuronitis. He responded favorably to Leodan maneuver, however did demonstrate sustained nystagmus, and has recently had COVID vaccine booster, which could indicate a component of vestibular neuronitis. He responded very favorably to Leodan maneuver, with complete resolution of symptoms the day after treatment. He was able to demonstrate safe and independent mobility, and was able to discharge home with recommendations for follow up with outpatient PT as needed for vestibular symptoms. GOALS 1. Supine-sit: Independent (MET) 2. Sit-Supine: Independent (MET) 3. Sit-Stand:Independent (MET) 4. Stand-sit: Independent (MET) 5. Bed-Chair: Independent (MET) 6. Chair-bed:Independent (MET) 7. Gait: supervision x 150' without AD (MET) PLAN OF CARE/TREATMENT PLAN: D/C from PT in acute care setting. DISCHARGE RECOMMENDATIONS: home with outpatient PT for vestibular rehab TREATMENT TIME/MINUTES/CODES:none Thank you for this referral. Please do not hesitate to contact me with any questions or concerns regarding this patient's POC. Manuela Reilly, PT, DPT [facility]
== END 2023-03-09 12:55 | disposition home or self-care (01) ==
LOC: ER 12:56 → MS 13:59
PROVIDERS: Nurse Practitioner Acute Care; Admitting Provider Family Medicine; Emergency Provider Student in an Organized Health Care Education/Training Program; PCP Family Medicine; Visit Provider Family Medicine
DX: R42 Dizziness and giddiness (principal); R00.0 Tachycardia, unspecified; Z79.01 Long term (current) use of anticoagulants; Z79.84 Long term (current) use of oral hypoglycemic drugs; Z79.4 Long term (current) use of insulin; I25.10 Atherosclerotic heart disease of native coronary artery without angina pectoris; Z95.1 Presence of aortocoronary bypass graft; Z95.5 Presence of coronary angioplasty implant and graft; I50.9 Heart failure, unspecified; I11.0 Hypertensive heart disease with heart failure; I48.91 Unspecified atrial fibrillation; I25.5 Ischemic cardiomyopathy; E11.65 Type 2 diabetes mellitus with hyperglycemia; I25.2 Old myocardial infarction; E61.1 Iron deficiency; E53.1 Pyridoxine deficiency; R33.9 Retention of urine, unspecified; E11.40 Type 2 diabetes mellitus with diabetic neuropathy, unspecified; D64.9 Anemia, unspecified; Z86.718 Personal history of other venous thrombosis and embolism; N40.0 Benign prostatic hyperplasia without lower urinary tract symptoms; E78.5 Hyperlipidemia, unspecified; Z85.850 Personal history of malignant neoplasm of thyroid; E89.0 Postprocedural hypothyroidism; I08.0 Rheumatic disorders of both mitral and aortic valves
CPT/HCPCS: 36415; 80053; 93005; 93306; 97112; 97162; 99285; C8929; 71045; 83735; 83880; 84484; 85025; 93010; 99223; 99238; G0378

== ENCOUNTER → 2023-05-17 18:48 | Outpatient (CLI) | payer MEDICARE, BC, SELFPAY ==
--- NOTE | 2023-05-17 | DI.RAD_ITS ---
Exam(s) XR SHOULDER RT COMPLETE 2+V EXAM: XR SHOULDER RT COMPLETE 2+V CLINICAL HISTORY: PAIN RT SHOULDER M25.511. TECHNIQUE: 2D digital imaging was performed. COMPARISON: No exams were available for comparison FINDINGS: 3 views No evidence of acute fracture or dislocation. No diminution of the subacromial space. However, ther e are few calcifications in the subacromial space consistent with calcific tendinitis-bursitis. Ther e are mild degenerative changes in the glenohumeral joint. Mild degenerative changes in the AC joint . Sternotomy wires noted. IMPRESSION: No acute fractures evident. However, there is evidence of calcific tendinitis-bursitis. Subacromial space itself is not diminished. DATA REPOSITORY: RADIATION DOSE DELIVERED:
== END ==
PROVIDERS: PCP Family Medicine; Visit Provider Nurse Practitioner Family
DX: M25.511 Pain in right shoulder (principal)
CPT/HCPCS: 73030

== ENCOUNTER → 2023-05-26 09:46 | Outpatient (BNVA) | payer MEDICARE, BC, SELFPAY | PROVIDERS: PCP Family Medicine; Referring Provider Family Medicine; Visit Provider Student in an Organized Health Care Education/Training Program | DX: S46.011A Strain of muscle(s) and tendon(s) of the rotator cuff of right shoulder, initial encounter (principal); X58.XXXA Exposure to other specified factors, initial encounter | CPT/HCPCS: 99213 ==

== ENCOUNTER → 2023-06-22 08:33 | Outpatient (BNVA) | payer MEDICARE, BC, SELFPAY | PROVIDERS: PCP Family Medicine; Referring Provider Family Medicine; Visit Provider Student in an Organized Health Care Education/Training Program | DX: S46.011A Strain of muscle(s) and tendon(s) of the rotator cuff of right shoulder, initial encounter (principal); X58.XXXA Exposure to other specified factors, initial encounter; I25.10 Atherosclerotic heart disease of native coronary artery without angina pectoris; I25.2 Old myocardial infarction; Z79.01 Long term (current) use of anticoagulants | CPT/HCPCS: 99213 ==

== ENCOUNTER 2023-07-22 01:03 | Outpatient (CLI) | payer MEDICARE, BC, SELFPAY ==
[2023-07-22 08:04] LABS: ALT 34 U/L (16-63); AST 18 U/L (15-37); Albumin 3.7 g/dL (3.4-5.0); Alkaline Phosphatase 91 U/L (46-116); BUN 31 mg/dL (7-18); Bilirubin, Total 0.6 mg/dL (0.2-1.0); CREATININE 1.5 mg/dL (0.70-1.30); Calcium 8.9 mg/dL (8.5-10.1); Calculated LDL 47 mg/dL (<100); Chloride 103 mmol/L (98-107); Cholesterol 123 mg/dL (<200); Estimated GFR 47.65 (mL/min/1.73m2); Glucose 260 mg/dL (74-106); HDL Cholesterol 33 mg/dL (40-60); Potassium 5.1 mmol/L (3.5-5.1); Sodium 142 mmol/L (136-145); Total Protein 7.4 g/dL (6.4-8.2); Triglyceride 218 mg/dL (<150)
== END 2023-07-22 01:04 | disposition home or self-care (01) ==
PROVIDERS: PCP Family Medicine; Visit Provider Family Medicine
DX: E03.9 Hypothyroidism, unspecified (principal); E11.9 Type 2 diabetes mellitus without complications; I25.10 Atherosclerotic heart disease of native coronary artery without angina pectoris; N28.9 Disorder of kidney and ureter, unspecified; I10 Essential (primary) hypertension
CPT/HCPCS: 36415; 80053; 80061; 83036

== ENCOUNTER → 2023-08-04 09:53 | Outpatient (BNVA) | payer MEDICARE, BC, SELFPAY | PROVIDERS: PCP Family Medicine; Visit Provider Student in an Organized Health Care Education/Training Program | DX: S46.011D Strain of muscle(s) and tendon(s) of the rotator cuff of right shoulder, subsequent encounter (principal); X58.XXXD Exposure to other specified factors, subsequent encounter | CPT/HCPCS: 99213 ==

== ENCOUNTER 2023-11-02 09:14 | Observation (INO) | payer MEDICARE, BC, SELFPAY ==
[2023-11-02] VITALS (17 sets, daily range): BP systolic 101–254; BP diastolic 47–127; PULSE 70–118; RESP 18–30; TEMP 36.5–37.1; O2SAT 92–98
--- NOTE | 2023-11-02 09:00 | RT.EKG_ITS ---
APPROVED REPORT Exam: Resting ECG Reason for Exam: sob Patient Location: E HR:116 bpm ECG Measurements Heart Rate 116 AXIS MS 159 P 83 QRSd 109 QRS -54 QT 344 T 75 QTc 477 Conclusion Sinus tachycardia...rate> 99 Left axis deviation...QRS axis (-30,-90) Anterolateral infarct, old...Q>40mS, abnrm ST-T, V3-V6,I,aVL Sinus tachycardia at a rate of 116 with left axis deviation. No signs of LVH. Interventricular cond uction delay. MS and QTc within normal limits. Compared to prior dated last year sinus tachycardia is new. Left axis deviation is persistent. Mild upsloping ST segments in V1 and V2 similar to prior . No ST segment depressions. No acute injury pattern.
--- NOTE | 2023-11-02 09:15 | W.ED.GENAD ---
Discharge Plan Disposition Patient Disposition: Admit to [facility] Discharge Details Clinical Impression: Hematuria, Acute urinary retention Primary Care Provider: Lovely Vicente ED Provider: Brody Fraire Paterson Meds and New Rx's Prescriptions: Continued ferrous sulfate 325 mg (65 mg iron) tablet 325 mg PO .4 day per week apixaban 5 mg tablet 5 mg PO BID Qty: 180 5RF empagliflozin 10 mg tablet 10 mg PO DAILY Qty: 90 5RF clopidogrel 75 mg tablet 75 mg PO DAILY Qty: 90 5RF atorvastatin 10 mg tablet 10 mg PO .COMPLEX Qty: 90 3RF Rx Instructions: 10 mg PO 5 days weekly; insulin glargine [Lantus Solostar U-100 Insulin] 100 unit/mL (3 mL) insulin pen 35 unit subcut DAILY Qty: 30 4RF levothyroxine 175 mcg tablet 175 mcg PO DAILY Qty: 102 5RF Rx Instructions: 1 tab daily except 2 tabs on Wed Entresto 24-26 mg tablet 1 tab PO BID Qty: 180 4RF turmeric root extract 500 mg capsule 500 mg PO BID (DME) blood-glucose meter 1 EACH misc 1 ea Miscellaneous PRN Qty: 1 Rx Instructions: For Accucheck Compact meter DIAGNOSIS CODE 250.01 (DME) lancets [BD Ultra Fine Lancets] 1 EACH misc 1 ea Sub-Q AC & HS Qty: 400 6RF Rx Instructions: Labile blood sugar E11.65 DISPENSE: lancets acetaminophen 650 MG tablet 2 tab PO BID PRN magnesium oxide 500 mg capsule 500 mg PO DAILY Qty: 180 ascorbic acid (vitamin C) [Vitamin C] 500 mg tablet 500 mg PO DAILY Patient Comments: 05/09/15- Takes during winter months. aj nitroglycerin 0.4 mg tablet, sublingual 0.4 mg sublingual Q5M PRN Rx Instructions: do not exceed 3 doses per episode (DME) Blood Glucose Test Strip 1 ea Miscellaneous AC & HS Qty: 400 12RF Rx Instructions: accu check arriva METER. PT USES INSULIN. Labile DM. TESTS TID AND PRN.DIAGNOSIS CODE E11.65/Z79.4 metoprolol succinate 25 mg tablet extended release 24 hr 25 mg PO DAILY Qty: 90 4RF torsemide 20 mg tablet 10 mg PO DAILY Qty: 45 4RF insulin lispro [Humalog KwikPen Insulin] 100 unit/mL insulin pen 25 unit subcut AC Qty: 30 4RF (DME) pen needle, diabetic [BD Ultra-Fine Short Pen Needle] 31 gauge x 5/16 needle See Rx Instructions .ROUTE .COMPLEX Qty: 400 3RF Dose Instruction: USE TO INJECTED INSULIN 4 TIMES DAILY Rx Instructions: USE TO INJECTED INSULIN 4 TIMES DAILY metformin 850 mg tablet 850 mg PO BID Qty: 180 4RF HPI General Date/Time Provider Initiated Documentation: 11/02/23 09:15. HPI Narrative: MDM This is an uncomfortable appearing tachycardic and hypertensive 78-year-old male with clot hematuria and suprapubic discomfort concerning for acute urinary retention for which patient will have a three-way Ocasio catheter placed for irrigation. Will obtain labs to ensure patient does not have acute blood loss anemia. Will also assess urinalysis to assess for UTI. No signs of paraphimosis on exam. No pain out of proportion to suggest An's gangrene. No chest pain to suggest ACS. No shortness of breath so my suspicion is low for PE. Given no shortness of breath I am not concerned for acute heart failure. No nausea vomiting or diarrhea so my suspicion is low for appendicitis. Furthermore patient has no right lower quadrant tenderness. No left lower quadrant tenderness to suggest diverticulitis. No recent falls to suggest increased risk for hip fracture so I did not obtain x-rays. Will reassess following catheter insertion and urinalysis. 9:57 AM I spoke with Stacey Ann from urology. She will come down to help place a Ocasio catheter as unfortunately nurses in the emergency department are not able to place a Ocasio. Patient had 703 cc on bladder scan. 10:25 AM Basic metabolic panel showing RADHA on CKD. Mildly elevated BUN. Hyperglycemia and anion gap breath mildly low bicarbonate will obtain venous blood gas to assess for acidemia given concern for possible DKA. Given bicarbonate greater than 18 my suspicion is lower for DKA. I suspect that the patient's gap acidosis is secondary to decreased p.o. intake. Will provide 500 cc of fluid. CBC lacks anemia thrombocytopenia and leukocytosis. Unfortunately catheter could not be passed by Stacey. She will check with Dr. Lamb for consideration of cystoscopy. 10:50 AM Normal venous pH at 7.37 not consistent with DKA given bicarbonate greater than 18 and no acidemia on venous pH. Patient having pain persistently and catheter has not been able to be placed. Will provide 75 mcg of fentanyl. 12:[address] Lamb successfully placed a catheter. He was able to irrigate the patient's bladder. He did not find any clots. Patient reportedly has urology follow-up in the next approximately [address] Lamb recommended keeping the catheter in place. Patient had greater than 1 L of urine in his bladder. Will reassess. Patient reports feeling markedly improved. He is resting comfortably. His heart rate is 93 bpm. His end-tidal CO2 is 40 mmHg not consistent with DKA. Will repeat basic metabolic panel. Patient is drinking a diet adiel dimitry. 1:30 PM Difficult to interpret UA per lab secondary to color interference. 1:45 PM Repeat basic metabolic panel shows slightly worsened creatinine consistent with RADHA. Mildly increased BUN. Improved anion gap. Normal bicarbonate. Hyperglycemia persists but not consistent with DKA. Given worsened RADHA and acute urinary retention and significant comorbidities we will plan on hospitalizing the patient overnight to ensure that his renal function does not worsen. 3 PM I spoke with Dr. Arroyo who agreed graciously to accept the patient for hospitalization. He requested a renal ultrasound which I ordered. Chronic conditions affecting the care of the patient: Diabetes History obtained from an outside historian: Paramedics External record review: [facility] EMR Diagnostic interpretations performed by me: Per my independent interpretation chest x-ray shows: No acute cardiopulmonary process Per my independent interpretation EKG shows: Sinus tachycardia at a rate of 116 with left axis deviation. No signs of LVH. Interventricular conduction delay. TN and QTc within normal limits. Compared to prior dated last year sinus tachycardia is new. Left axis deviation is persistent. Mild upsloping ST segments in V1 and V2 similar to prior. No ST segment depressions. No acute injury pattern. ]Medications: N/A Social determinants of health affecting disposition: N/A Management discussed with: Urology and hospitalist teams Treatment/interventions considered: Discharge but deferred given bump in creatinine this Response to therapies provided: Improved symptoms status post catheter HPI This is a 78-year-old male with history of coronary artery disease paroxysmal atrial fibrillation on anticoagulation diabetes CKD and remote right metatarsal amputation arrived to the emergency department via EMS in the setting of hematuria. Patient reported tested positive for COVID last week. He is vaccinated against COVID. Patient reports that he began developing clot hematuria this morning. He reports that he has been adherent with his oral anticoagulant. He says that he has not been able to urinate for the past several hours and has suprapubic abdominal pain. He has not been nauseous or vomiting. He denies chest pain shortness of breath. He has previously had urinary tract infections. This morning he denies dysuria and frequency. No recent falls. No recent diarrhea. Exam General: Uncomfortable appearing-appearing in no moderate distress speaking in complete sentences. Head: Normocephalic, atraumatic. Eye: Extraocular eye movements intact. No conjunctival injection. No scleral icterus. Ear, nose, mouth, throat: Grossly normal inspection. Normal voice, handling secretions normally. Neck: Trachea midline. Cardiovascular: Well-perfused distal extremities. Regular rate and rhythm. Respiratory: Nonlabored respiration. Clear lungs bilaterally Gastrointestinal: Nondistended abdomen. Soft abdomen. Mild suprapubic discomfort. : Uncircumcised penis with clot visible at the meatus. No pain out of proportion. Musculoskeletal: No significant lower extremity pitting edema. Moving all 4 extremities spontaneously. Skin: Normal for age and race, grossly normal temperature and turgor. No acute rash. Neurologic: Alert and appropriate, no apparent acute deficits. Psychiatric: Mood and manner are appropriate. Grooming and personal hygiene are appropriate. Related Data Home Medications Medication Instructions Recorded Confirmed blood-glucose meter #1 ea 07/24/14 11/02/23 lancets 33 gauge (BD Ultra Fine ##400 10/25/17 11/02/23 Lancets) acetaminophen 650 mg 2 tab PO BID PRN 11/02/17 11/02/23 tablet,extended release turmeric root extract 500 mg 500 mg PO BID 12/13/18 11/02/23 capsule magnesium oxide 500 mg capsule 500 mg PO DAILY #180 tabs 10/28/20 11/02/23 ascorbic acid (vitamin C) 500 mg 500 mg PO DAILY 12/31/20 11/02/23 tablet (Vitamin C) ferrous sulfate 325 mg (65 mg 325 mg PO .4 day per week 03/27/21 11/02/23 iron) tablet nitroglycerin 0.4 mg sublingual 0.4 mg sublingual Q5M PRN 12/15/21 11/02/23 tablet blood sugar diagnostic (Blood #400 strips 05/25/22 11/02/23 Glucose Test strips) apixaban 5 mg tablet 5 mg PO BID #180 tabs 10/27/22 11/02/23 clopidogrel 75 mg tablet 75 mg PO DAILY #90 tabs 10/27/22 11/02/23 empagliflozin 10 mg tablet 10 mg PO DAILY #90 tabs 10/27/22 11/02/23 metoprolol succinate 25 mg 25 mg PO DAILY #90 tabs 04/07/23 11/02/23 tablet,extended release 24 hr torsemide 20 mg tablet 10 mg (1/2 x 20 mg) PO DAILY #45 07/27/23 11/02/23 tabs atorvastatin 10 mg tablet 10 mg PO .COMPLEX #90 tab-caps 08/03/23 11/02/23 insulin glargine 100 unit/mL (3 35 unit (0.35 mL) subcut DAILY #30 08/03/23 11/02/23 mL) subcutaneous pen (Lantus mL Solostar U-100 Insulin) levothyroxine 175 mcg tablet 175 mcg PO DAILY #102 tab-caps 08/03/23 11/02/23 sacubitril 24 mg-valsartan 26 mg 1 tab PO BID #180 tabs 08/03/23 11/02/23 tablet (Entresto) insulin lispro 100 unit/mL 25 unit (0.25 mL) subcut AC #30 mL 08/10/23 11/02/23 subcutaneous pen (Humalog KwikPen (U-100) Insulin) pen needle, diabetic 31 gauge x #400 ea 08/11/23 11/02/2312/08 (BD Ultra-Fine Short Pen Needle) metformin 850 mg tablet 850 mg PO BID #180 tabs 09/06/23 11/02/23 Previous Rx's Medication Instructions Recorded lancets 33 gauge (BD Ultra Fine ##400 10/25/17 Lancets) blood sugar diagnostic (Blood #400 strips 05/25/22 Glucose Test strips) apixaban 5 mg tablet 5 mg PO BID #180 tabs 10/27/22 clopidogrel 75 mg tablet 75 mg PO DAILY #90 tabs 10/27/22 empagliflozin 10 mg tablet 10 mg PO DAILY #90 tabs 10/27/22 metoprolol succinate 25 mg 25 mg PO DAILY #90 tabs 04/07/23 tablet,extended release 24 hr torsemide 20 mg tablet 10 mg (1/2 x 20 mg) PO DAILY #45 07/27/23 tabs atorvastatin 10 mg tablet 10 mg PO .COMPLEX #90 tab-caps 08/03/23 insulin glargine 100 unit/mL (3 35 unit (0.35 mL) subcut DAILY #30 08/03/23 mL) subcutaneous pen (Lantus mL Solostar U-100 Insulin) levothyroxine 175 mcg tablet 175 mcg PO DAILY #102 tab-caps 08/03/23 sacubitril 24 mg-valsartan 26 mg 1 tab PO BID #180 tabs 08/03/23 tablet (Entresto) insulin lispro 100 unit/mL 25 unit (0.25 mL) subcut AC #30 mL 08/10/23 subcutaneous pen (Humalog KwikPen (U-100) Insulin) pen needle, diabetic 31 gauge x #400 ea 08/11/2312/08 (BD Ultra-Fine Short Pen Needle) metformin 850 mg tablet 850 mg PO BID #180 tabs 09/06/23 Allergies Allergy/AdvReac Type Severity Reaction Status Date / Time lisinopril AdvReac cough Verified 11/02/23 14:09 General RENETTA: 3 Medical Decision Making Quality:SDOH Health Related Social Needs: No Data to Display PFSH All Active Problems (Updated 11/02/23 @ 13:33 by Brody Fraire MD) Acute urinary retention (Acute) Traumatic tear of right rotator cuff (Acute ~05/15/23) Vertigo (Acute) Pre-syncope (Acute) Hematuria (Acute) Weakness (Acute) Low iron (Acute) Presence of external hearing aid (Acute) CAD (coronary artery disease) (Chronic) Pre-op testing (Acute) Respiratory failure with hypoxia (Acute) Diabetes (Chronic) Hypothyroidism (Chronic) Acute non-ST elevation myocardial infarction (NSTEMI) (Acute) CHF exacerbation (Acute) Renal function impairment (Chronic) Impacted cerumen, bilateral (Acute) Diarrhea (Acute) Dizziness (Acute) Primary osteoarthritis, left hand (Acute) Conductive hearing loss, external ear (Acute) Diarrhea (Acute) Restless legs (Acute 03/13/13) Afib (Chronic) Chronic anticoagulation (Acute) Urinary retention (Chronic 06/28/14) Type 2 diabetes mellitus with hyperglycemia (Chronic 12/24/15) Tubular adenoma of colon (Chronic 07/03/14) 01/06 Sleep apnea (Chronic) study 02/06/14-severe obstructive sleep apnea; CPAP Sensorineural hearing loss, bilateral (Chronic 11/28/12) Dr Vega; B/L hearing aids Psoriasis (Chronic 03/13/13) 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 Hypothyroidism associated with surgical procedure (Chronic 04/10/14) 03/2013 [facility] thyroidectomy: papillary carcinoma Peripheral neuropathy (Chronic 01/03/15) Nontoxic multinodular goiter (Chronic 09/12/12) Malignant melanoma of skin (Chronic 09/12/12) [facility] DERMATOLOGY; HAS F/U IN SEPTEMBER 2012 & annually MELANOMA TO BACK Left carpal tunnel syndrome (Chronic 06/30/17) Ischemic cardiomyopathy (Chronic 07/05/17) 07/05/17 LVEF=29% Hypomagnesemia (Chronic 04/18/13) Clinically manifested with leg cramps; initiated Mg++ Oxide 03/2013 Heartburn (Chronic 03/13/13) PPI prn Nisson fundiplication 06/08 Essential hypertension (Chronic 11/07/12) Diabetic neuropathy (Chronic 06/28/14) Depression (Chronic) 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 Taylor letter GE junction; pending path results BPH NOS w/o ur obs/LUTS (Chronic) ASHD (arteriosclerotic heart disease) (Chronic 07/05/17) 07/05/17-[facility] 3VC[facility]; Medical History (Updated 11/02/23 @ 13:33 by Brody Fraire MD) Pain at injection site Cerumen debris on tympanic membrane of right ear Papillary thyroid carcinoma (03/30/13) UTI (urinary tract infection) Obesity Functional disorder of stomach 09/12/12 Restless legs 03/03/13 requip Papillary thyroid carcinoma 03/30/1302/2013 s/p thyroidectomy with TMadiha Colacchpau [facility] Dr. Delcid cancer f/u [facility] Night cramps 04/11/13 Carpal tunnel syndrome on both sides 01/22/15 STEMI (ST elevation myocardial infarction) 07/05/17 Deep vein thrombosis (DVT) of tibial vein of right lower extremity 08/03/17 unspecified chronicity partial occlusion 07/29/17 Confusion 08/03/17 Ischemic leg 09/02/17 Malignant melanoma of skin, unspecified in situ; neg. sentinel node History of tobacco use Quit 1970s Bruising (03/07/18) on coumadin Anemia (07/23/14) Hypertension GERD (gastroesophageal reflux disease) Hyperlipemia Diabetes mellitus MARIA VICTORIA (obstructive sleep apnea) BPH (benign prostatic hyperplasia) Surgical History S/P thyroidectomy 07/26/12 [facility] Dr. Mcknight H/O esophagogastroduodenoscopy 07/26/13 S/P trigger finger release 04/03/16 trigger little finger of right hand S/P carpal tunnel release 04/03/16 right Trigger Finger release 04/03/16; RIGHT SMALL FINGER Thyroidectomy, 2012 [facility] Dr. Manny Mcknight Open Carpal Tunnel release 04/03/16- RIGHT EGD - MAC (03/05/14) Colonoscopy - MAC 01/16/14-[facility] Family History Mother Alcohol abuse Father , 82? Diabetes Brother , 47 Alcohol abuse Lung cancer Maternal Grandfather , 80? No problems noted. Paternal Grandfather No problems noted. Maternal Grandmother , 78? Cancer Paternal Grandmother No problems noted. Son Substance abuse Daughter No problems noted. Social History Smoking/Tobacco Use Status: Former Tobacco Use tobacco type: cigarettes Quit Date: 07/26/77 Tobacco: How many years used: 15 Second Hand Exposure: Yes Smoking risk assessment performed?: Yes Alcohol Intake: former Drug use: Never Substance use type: does not use Counseling given: No Caregiver/Support person: No Household members: spouse Housing: house Communication Needs: Hard of Hearing Do you need help understanding health information?: Often current occupation: WORKING AT [employer]. Pets and animals: Yes Pets and animals: dog(s) Sexually active: No Do you think of yourself as: straight/heterosexual Current gender identity: male What is your relationship status?: How often do you talk on the phone with friends or family?: three or more times per week How often do you get together with friends or relatives?: twice per week How often do you attend hindu or confucianist services?: 1-3 times per year Do you belong to any clubs or organized social groups?: yes Panel score (0-1 are the most socially isolated patients): 3 Adelina/Samaritan: No preference Special adelina needs: No Seatbelt use: always Helmet use: Yes Helmet use: sometimes Drive intox or ride w/intox wheelchair driver: No Do you feel safe at home: Yes Do you feel safe in your relationship?: Yes
[2023-11-02 10:00] LABS: Abs Immature Grans 0.07 10^3/uL (0.0-0.06); Absolute Basophil Count 0.03 10^3/uL (0.0-0.2); Absolute Eosinophil Count 0.13 10^3/uL (0.0-0.7); Absolute Lymphocyte Count 1.16 10^3/uL (1.2-3.4); Absolute Neutrophil Count 7.67 10^3/uL (1.2-6.7); Basophils % 0.3; Eosinophils % 1.3; HCT 47.5 % (40.0-50.0); HGB 15.8 g/dL (13.5-17.5); Immature Grans % 0.7; MCH 30.4 pg (27.0-33.0); MCHC 33.3 % (32.0-36.0); MCV 92 fL (80-95); MPV 9.1 fL (8.0-11.0); Monocytes % 6.2; Neutrophils % 79.5; Platelet Count 220 10^3/uL (130-400); RBC 5.19 10^6/uL (4.36-5.78); RDW 15.2 % (11.8-14.1); RDW-SD 50.4 fL; WBC 9.66 10^3/uL (4.4-10.8)
[2023-11-02] MEDS: fentaNYL 100 MCG/2 ML VIAL 50 MCG IVP (10:00)
[2023-11-02] MEDS: Lidocaine 2% Jelly 6 ML SYR (10:05)
[2023-11-02 10:13] LABS: Anion Gap 18.2 mmol/L (3-11); BUN 30 mg/dL (7-18); CO2 20.8 mmol/L (21.0-32.0); CREATININE 1.9 mg/dL (0.70-1.30); Calcium 8.9 mg/dL (8.5-10.1); Chloride 101 mmol/L (98-107); Estimated GFR 35.88 (mL/min/1.73m2); Glucose 335 mg/dL (74-106); Potassium 4.4 mmol/L (3.5-5.1); Sodium 140 mmol/L (136-145)
[2023-11-02] MEDS: Normal Saline 500 ML IV (10:40)
[2023-11-02 10:43] LABS: BE (Venous) -4 mmol/L (-2-3); HCO3 (Venous) 21 mmol/L (23-28); O2 Sat (Venous) 86 %; TCO2 (Venous) 19 mmol/L (24-29); pCO2 (Venous) 37 mmHg (41-51); pH (Venous) 7.37 (7.31-7.41); pO2 (Venous) 52 mmHg
[2023-11-02] MEDS: fentaNYL 100 MCG/2 ML VIAL 75 MCG IVP (10:50)
[2023-11-02] MEDS: Ondansetron 4 MG/2 ML VIAL IVP (11:07)
[2023-11-02] MEDS: HYDROmorphone 2 MG/ML SYR (11:39)
--- NOTE | 2023-11-02 12:52 | UCONE_ITS ---
Date of service: 11/02/23 Time of Service: 12:57 Assessment and Plan Assessment and plan (1) Hematuria: Status: Acute (2) Urinary retention: Status: Chronic Assessment and plan: His bladder is now decompressed and he is quite a bit more comfortable. The exact etiology of his hematuria and his retention is not yet determined. The patient tells me that he has an appointment with his urologist about 2 weeks from now. I would suggest leaving the catheter to a leg bag until then. If he is able to come off any of his anticoagulation, that would be helpful in terms of preventing hematuria episodes. It may not be possible given his cardiac status. History of Present Illness History of Present Illness Chief Complaint: Urinary retention Narrative: This is a 78-year-old gentleman who has a history of BPH with lower urinary tract symptoms. He also has a history of kidney stones. He has been under the care of Dr. Horowitz for many years. Mr. Fatima had undergone transurethral resection of the prostate about 10 years ago. He believes it was done for benign disease. He was told that he had some challenging anatomy in the urethra but he is not able to elaborate on the exact anatomic changes. He had been on both alpha blockers and 5 alpha reductase inhibitors in the past. He discontinued the medications as it was felt his issue was related to the urethra rather than to the prostate. He presented to our emergency room this morning with an inability to void. He was passing small amounts of bloody urine. Multiple staff members had attempted to pass urethral catheter as some were not successful. PFSH All Active Problems Traumatic tear of right rotator cuff (Acute ~05/15/23) Vertigo (Acute) Pre-syncope (Acute) Hematuria (Acute) Weakness (Acute) Low iron (Acute) Presence of external hearing aid (Acute) CAD (coronary artery disease) (Chronic) Pre-op testing (Acute) Respiratory failure with hypoxia (Acute) Diabetes (Chronic) Hypothyroidism (Chronic) Acute non-ST elevation myocardial infarction (NSTEMI) (Acute) CHF exacerbation (Acute) Renal function impairment (Chronic) Impacted cerumen, bilateral (Acute) Diarrhea (Acute) Dizziness (Acute) Primary osteoarthritis, left hand (Acute) Conductive hearing loss, external ear (Acute) Diarrhea (Acute) Restless legs (Acute 03/13/13) Afib (Chronic) Chronic anticoagulation (Acute) Urinary retention (Chronic 06/28/14) Type 2 diabetes mellitus with hyperglycemia (Chronic 12/24/15) Tubular adenoma of colon (Chronic 07/03/14) 01/06 Sleep apnea (Chronic) study 02/06/14-severe obstructive sleep apnea; CPAP Sensorineural hearing loss, bilateral (Chronic 11/28/12) Dr Vega; B/L hearing aids Psoriasis (Chronic 03/13/13) 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) [facility] Hypothyroidism associated with surgical procedure (Chronic 04/10/14) 03/2013 [facility] thyroidectomy: papillary carcinoma Peripheral neuropathy (Chronic 01/03/15) Nontoxic multinodular goiter (Chronic 09/12/12) Malignant melanoma of skin (Chronic 09/12/12) [facility] DERMATOLOGY; HAS F/U IN SEPTEMBER 2012 & annually MELANOMA TO BACK Left carpal tunnel syndrome (Chronic 06/30/17) Ischemic cardiomyopathy (Chronic 07/05/17) 07/05/17 LVEF=29% Hypomagnesemia (Chronic 04/18/13) Clinically manifested with leg cramps; initiated Mg++ Oxide 03/2013 Heartburn (Chronic 03/13/13) PPI prn Nisson fundiplication 06/08 Essential hypertension (Chronic 11/07/12) Diabetic neuropathy (Chronic 06/28/14) Depression (Chronic) 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 Taylor letter GE junction; pending path results BPH NOS w/o ur obs/LUTS (Chronic) ASHD (arteriosclerotic heart disease) (Chronic 07/05/17) 07/05/17-[facility] 3[facility]; Medical History Pain at injection site Cerumen debris on tympanic membrane of right ear Papillary thyroid carcinoma (03/30/13) UTI (urinary tract infection) Obesity Functional disorder of stomach 09/12/12 Restless legs 03/03/13 requip Papillary thyroid carcinoma 03/30/1302/2013 s/p thyroidectomy with Vernon Mcknight [facility] Dr. Delcid cancer f/u [facility] Night cramps 04/11/13 Carpal tunnel syndrome on both sides 01/22/15 STEMI (ST elevation myocardial infarction) 07/05/17 Deep vein thrombosis (DVT) of tibial vein of right lower extremity 08/03/17 unspecified chronicity partial occlusion 07/29/17 Confusion 08/03/17 Ischemic leg 09/02/17 Malignant melanoma of skin, unspecified in situ; neg. sentinel node History of tobacco use Quit 1970s Bruising (03/07/18) on coumadin Anemia (07/23/14) Hypertension GERD (gastroesophageal reflux disease) Hyperlipemia Diabetes mellitus MARIA VICTORIA (obstructive sleep apnea) BPH (benign prostatic hyperplasia) Surgical History S/P thyroidectomy 07/26/12 [facility] Dr. Mcknight H/O esophagogastroduodenoscopy 07/26/13 S/P trigger finger release 04/03/16 trigger little finger of right hand S/P carpal tunnel release 04/03/16 right Trigger Finger release 04/03/16; RIGHT SMALL FINGER Thyroidectomy, 2012 [facility] Dr. Manny Mcknight Open Carpal Tunnel release 04/03/16- RIGHT EGD - MAC (03/05/14) Colonoscopy - MAC 01/16/14-[facility] Family History Mother Alcohol abuse Father , 82? Diabetes Brother , 47 Alcohol abuse Lung cancer Maternal Grandfather , 80? No problems noted. Paternal Grandfather No problems noted. Maternal Grandmother , 78? Cancer Paternal Grandmother No problems noted. Son Substance abuse Daughter No problems noted. Social History Smoking/Tobacco Use Status: Former Tobacco Use tobacco type: cigarettes Quit Date: 07/26/77 Tobacco: How many years used: 15 Second Hand Exposure: Yes Smoking risk assessment performed?: Yes Alcohol Intake: former Drug use: Never Substance use type: does not use Counseling given: No Caregiver/Support person: No Household members: spouse Housing: house Communication Needs: Hard of Hearing Do you need help understanding health information?: Often current occupation: WORKING AT [employer]. Pets and animals: Yes Pets and animals: dog(s) Sexually active: No Do you think of yourself as: straight/heterosexual Current gender identity: male What is your relationship status?: How often do you talk on the phone with friends or family?: three or more times per week How often do you get together with friends or relatives?: twice per week How often do you attend scientologist or sabianism services?: 1-3 times per year Do you belong to any clubs or organized social groups?: yes Panel score (0-1 are the most socially isolated patients): 3 Adelina/Scientology: No preference Special adelina needs: No Seatbelt use: always Helmet use: Yes Helmet use: sometimes Drive intox or ride w/intox water tanker driver: No Do you feel safe at home: Yes Do you feel safe in your relationship?: Yes Exam Narrative Exam Narrative: He appears quite uncomfortable His vital signs are documented elsewhere His suprapubic area is quite tender and firm He is uncircumcised. The urethral meatus has some blood present He is awake and alert Results Last Vital Signs Temp 36.5 C 11/02/23 09:12 Pulse 99 H 11/02/23 10:41 Resp 30 H 11/02/23 09:12 BP 113/89 11/02/23 10:41 Pulse Ox 96 11/02/23 10:41 Labs 11/02/23 09:50 11/02/23 09:50 Labs: Laboratory Results - last 24 hr 11/02/23 11/02/23 09:50 10:36 WBC 9.66 RBC 5.19 Hgb 15.8 Hct 47.5 MCV 92 MCH 30.4 MCHC 33.3 RDW 15.2 H Plt Count 220 MPV 9.1 Immature Gran % 0.7 Neutrophils % 79.5 Lymphocytes % 12.0 Monocytes % 6.2 Eosinophils % 1.3 Basophils % 0.3 Nucleated RBC % 0.0 Absolute Neutrophils 7.67 H Absolute Lymphocytes 1.16 L Absolute Monocytes 0.60 Absolute Eosinophils 0.13 Absolute Basophils 0.03 VBG pH 7.37 VBG pCO2 37 L VBG pO2 52 VBG HCO3 21 L VBG Total CO2 19 L VBG O2 Saturation 86 VBG Base Excess -4 L Sodium 140 Potassium 4.4 Chloride 101 Carbon Dioxide 20.8 L Anion Gap 18.2 H BUN 30 H Creatinine 1.9 H Est GFR (CKD-EPI 2020) 35.88 Glucose 335 H Calcium 8.9 Insert Bladder Catheter Text: See documentation under cystoscopy tab Cystoscopy Text: The patient was seen in the emergency department. He was placed in the supine position. His genitalia was prepped with Betadine. 2% Xylocaine jelly was instilled into the urethra to act as a local anesthetic. I passed the flexible cystoscope through the urethra into the bladder. The urethra was inspected with the deflection of the scope. The pendulous, bulbar and membranous urethra appeared normal with no significant strictures. Once we encountered the external sphincter, visibility became much more challenging. I was able to follow the true lumen of the urethra and did not identify any discrete bladder neck contracture, but I was not able to perform a complete diagnostic cystoscopy. The prostatic urethra seem to follow almost a Z-shaped pattern. I was able to pass a guidewire through the lumen of the cystoscope into the bladder. I then passed a 16 [place] tip catheter over the wire and advanced the catheter until it was in the bladder. The catheter balloon was inflated with 10 cc of sterile water and the wire was removed. Over 1500 cc of bloody urine was obtained. I hand irrigated the catheter with over a liter of saline and a Tommie syringe. No clots were identified. The catheter was hooked to gravity drainage.
[2023-11-02 13:28] LABS: Clarity Sl Cloudy (Clear); Specific Gravity 1.011 (1.005-1.025)
[2023-11-02 13:29] LABS: Bilirubin Color Interference (Negative); Blood Color Interference (Negative); Glucose Color Interference mg/dL (Negative); Ketones Color Interference mg/dL (Negative); Leukocyte Esterase Color Interference (Negative); Nitrite Color Interference (Negative); Urobilinogen Color Interference mg/dL (Up to 0.2)
[2023-11-02 13:34] LABS: C & S Indicated? Yes; RBC >50 HPF (0-2)
[2023-11-02 13:37] LABS: Anion Gap 13.6 mmol/L (3-11); BUN 34 mg/dL (7-18); CO2 22.4 mmol/L (21.0-32.0); CREATININE 2.1 mg/dL (0.70-1.30); Calcium 8.3 mg/dL (8.5-10.1); Chloride 102 mmol/L (98-107); Estimated GFR 31.82 (mL/min/1.73m2); Glucose 344 mg/dL (74-106); Potassium 4.4 mmol/L (3.5-5.1); Sodium 138 mmol/L (136-145)
--- NOTE | 2023-11-02 13:45 | DI.RAD_ITS ---
Exam(s) XR PORTABLE CHEST AP EXAM: XR PORTABLE CHEST AP CLINICAL HISTORY: COVID infection TECHNIQUE: 2D digital imaging was performed. COMPARISON: CR,XR XR PORTABLE CHEST AP from 12/07/2021 CR XR PORTABLE CHEST AP from 03/08/2023 FINDINGS: LUNGS: Clear. No pleural abnormality seen. HEART: Mildly enlarged. Prior CABG. AORTA: Normal diameter. BONES: Sternal wires. Spine mostly obscured. Soft tissues: Unremarkable. IMPRESSION: No acute findings. DATA REPOSITORY: RADIATION DOSE DELIVERED:
[2023-11-02] MEDS: HYDROmorphone 2 MG/ML SYR 0.5 MG IVP (14:34)
--- NOTE | 2023-11-02 14:45 | DI.US_ITS ---
Exam(s) US RENAL EXAM: US RENAL CLINICAL HISTORY: RADHA TECHNIQUE: Ultrasound of both kidneys performed using standard protocol. COMPARISON: US US ECHOCARDIOGRAM W DEFINITY from 03/09/2023 FINDINGS: RIGHT KIDNEY: Measures 11 cm in length. No cysts evident. Normal cortical thickness and corticomedullary differenti ation .No solid masses No intrarenal calculi nor hydronephrosis. LEFT KIDNEY: Measures 11.4 cm in length. No cysts evident. Normal cortical thickness and corticomedullary differe ntiaion. No solids masses. No intrarenal calculi nor hydonephrosis. URINARY BLADDER: There is a Ocasio catheter in the urinary bladder. Bladder volume is 170 cc No bladder mass evident on these images. Ureterovesical jets: Both not identified. IMPRESSION: 1. No significant ultrasound findings in the kidneys. No hydronephrosis. 2. Ocasio catheter is noted in the urinary bladder. DATA REPOSITORY:
--- NOTE | 2023-11-02 15:09 | W.PM.HP.N ---
Date of service: 11/02/23 Time of Service: 15:09 Assessment and Plan Assessment and plan (1) COVID-19 determined by clinical diagnostic criteria: Status: Acute Assessment and plan: Reported home test positive since Wednesday, presented to the ED w/o respiratory symptoms or distress, on RA, no hypoxia Will hold off giving Remdesivir Patient mentioned receiving oral treatment, but unble to specify.As per [facility]: most likely had Molnupiravir Will continue to monitor (2) RADHA (acute kidney injury): Status: Acute Assessment and plan: Cr 1.9 then 2.1 s/p 1 liter IVF in the ED, baseline around 1.3.Will continue IVF and reevaluate in AM with BMP -Holding nephrotoxic drugs Most likely post-renal: US renal ordered and pending Urology consulted: Please see notes Bob in place with hematuria clearing: Will be discharged with bob nad leg bag pending urology visit in 2 weeks -INR 2.0 and therapeutic now for paroxysmal atrial fibrillation -Holding off on stopping Eliquis as hematuria is clearing, will monitor closely, CBC in AM (3) Acute urinary retention: Status: Acute Assessment and plan: As above (4) Hematuria: Status: Acute Assessment and plan: As above (5) Chronic disease under co-management: Status: Acute Assessment and plan: Continue metoprolol and Eliquis Continue home regimen for DMII (6) Paroxysmal A-fib: Status: Acute Assessment and plan: As above (7) Diabetes: Status: Chronic Assessment and plan: As above (8) Contraindication to deep vein thrombosis (DVT) prophylaxis: Status: Acute Assessment and plan: Therapeutic on Eliquis for A-Fib (9) Discharge planning issues: Status: Acute Assessment and plan: CM to f/u Discussed with Dr. Aguilar History of Present Illness History of Present Illness Chief Complaint: Hematuria with urinary retention, pain, hypetension , tachycardia Narrative: This 78 years old male patient with past medical history of coronary artery disease,NSTEMI in 2017, obstructive sleep apnea on CPAP, paroxysmal atrial fibrillation on apixaban, insulin-dependent diabetes mellitus, chronic kidney disease, remote right metatarsal amputation presented to the ED at [facility] via EMS on 11/02/2023 with complaints of suprapubic pain and inability to void for over the past 24 hours.In the ED the patient was found to be tachycardic and hypertensive. Chest x-ray was negative for any acute findings. Labs in the ED were noticeable for a creatinine of 1.9 with baseline around 1.3. An INR of 2.0 showed that the patient was therapeutic on apixaban. Urology was consulted and a Bob catheter inserted with urine output with noticeable gross hematuria. Dr. Lamb also recommend to leave the catheter in place with a leg bag until the patient sees his urologist in about [address] Lamb also suggest of to consider the possibility of coming of anticoagulation to manage and prevent hematuria episodes. A liter of IV fluid was infused and the repeat creatinine was 2.1. Urinalysis was not conclusive as there was color and difference from the blood content; urine culture is pending. The hospitalist was consulted and the patient was admitted to [facility] for overnight observation. During the discussion with the ED provider, the hospitalist ask for the consideration of a renal ultrasound which was ordered and pending. When seen in the ED, the patient mention inability to void for 1 day, with suprapubic and lower abdominal pain. The patient denies headache, numbness or tingling, change in vision, chest pain, cough, nausea, vomiting, or diarrhea. The patient mentions no dysuria prior to this urinary retention. The patient mention that he would like CPR and intubation if needed, thus the patient is a full code. Review of Systems All systems reviewed & are unremarkable except as noted in HPI and below Constitutional Constitutional: Reports as per HPI and Reports system reviewed and no additional complaints, except as documented ENT Ears, Nose, Mouth, and Throat: Reports abnormal hearing Cardiovascular Cardiovascular: Reports system reviewed and no additional complaints, except as documented Respiratory Respiratory: Reports system reviewed and no additional complaints, except as documented Gastrointestinal Gastrointestinal: Reports as per HPI and Reports system reviewed and no additional complaints, except as documented Genitourinary Genitourinary: Reports system reviewed and no additional complaints, except as documented, Reports hematuria and Reports difficulty urinating Musculoskeletal Musculoskeletal: Reports system reviewed and no additional complaints, except as documented and Reports as per HPI Neurologic Neurologic: Reports system reviewed and no additional complaints, except as documented, Reports as per HPI and Reports abnormal hearing [facility] All Active Problems (Updated 11/02/23 @ 17:31 by Monica Arrington APRN) Contraindication to deep vein thrombosis (DVT) prophylaxis (Acute) Discharge planning issues (Acute) COVID-19 determined by clinical diagnostic criteria (Acute) Chronic disease under co-management (Acute) Paroxysmal A-fib (Acute) RADHA (acute kidney injury) (Acute) Acute urinary retention (Acute) Traumatic tear of right rotator cuff (Acute ~05/15/23) Vertigo (Acute) Pre-syncope (Acute) Hematuria (Acute) Weakness (Acute) Low iron (Acute) Presence of external hearing aid (Acute) CAD (coronary artery disease) (Chronic) Pre-op testing (Acute) Respiratory failure with hypoxia (Acute) Diabetes (Chronic) Hypothyroidism (Chronic) Acute non-ST elevation myocardial infarction (NSTEMI) (Acute) CHF exacerbation (Acute) Renal function impairment (Chronic) Impacted cerumen, bilateral (Acute) Diarrhea (Acute) Dizziness (Acute) Primary osteoarthritis, left hand (Acute) Conductive hearing loss, external ear (Acute) Diarrhea (Acute) Restless legs (Acute 03/13/13) Afib (Chronic) Chronic anticoagulation (Acute) Urinary retention (Chronic 06/28/14) Type 2 diabetes mellitus with hyperglycemia (Chronic 12/24/15) Tubular adenoma of colon (Chronic 07/03/14) 01/06 Sleep apnea (Chronic) study 02/06/14-severe obstructive sleep apnea; CPAP Sensorineural hearing loss, bilateral (Chronic 11/28/12) Dr Vega; B/L hearing aids Psoriasis (Chronic 03/13/13) 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) [facility] Hypothyroidism associated with surgical procedure (Chronic 04/10/14) 03/2013 [facility] thyroidectomy: papillary carcinoma Peripheral neuropathy (Chronic 01/03/15) Nontoxic multinodular goiter (Chronic 09/12/12) Malignant melanoma of skin (Chronic 09/12/12) [facility] DERMATOLOGY; HAS F/U IN SEPTEMBER 2012 & annually MELANOMA TO BACK Left carpal tunnel syndrome (Chronic 06/30/17) Ischemic cardiomyopathy (Chronic 07/05/17) 07/05/17 LVEF=29% Hypomagnesemia (Chronic 04/18/13) Clinically manifested with leg cramps; initiated Mg++ Oxide 03/2013 Heartburn (Chronic 03/13/13) PPI prn Nisson fundiplication 06/08 Essential hypertension (Chronic 11/07/12) Diabetic neuropathy (Chronic 06/28/14) Depression (Chronic) 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 Taylor letter GE junction; pending path results BPH NOS w/o ur obs/LUTS (Chronic) ASHD (arteriosclerotic heart disease) (Chronic 07/05/17) 07/05/17-[facility]; Medical History (Updated 11/02/23 @ 17:31 by Monica Arrington APRN) Pain at injection site Cerumen debris on tympanic membrane of right ear Papillary thyroid carcinoma (03/30/13) UTI (urinary tract infection) Obesity Functional disorder of stomach 09/12/12 Restless legs 03/03/13 requip Papillary thyroid carcinoma 03/30/1302/2013 s/p thyroidectomy with Vernon Mcknight [facility] Dr. Delcid cancer f/u [facility] Night cramps 04/11/13 Carpal tunnel syndrome on both sides 01/22/15 STEMI (ST elevation myocardial infarction) 07/05/17 Deep vein thrombosis (DVT) of tibial vein of right lower extremity 08/03/17 unspecified chronicity partial occlusion 07/29/17 Confusion 08/03/17 Ischemic leg 09/02/17 Malignant melanoma of skin, unspecified in situ; neg. sentinel node History of tobacco use Quit 1970s Bruising (03/07/18) on coumadin Anemia (07/23/14) Hypertension GERD (gastroesophageal reflux disease) Hyperlipemia Diabetes mellitus MARIA VICTORIA (obstructive sleep apnea) BPH (benign prostatic hyperplasia) Surgical History S/P thyroidectomy 07/26/12 [facility] Dr. Mcknight H/O esophagogastroduodenoscopy 07/26/13 S/P trigger finger release 04/03/16 trigger little finger of right hand S/P carpal tunnel release 04/03/16 right Trigger Finger release 04/03/16; RIGHT SMALL FINGER Thyroidectomy, 2012 [facility] Dr. Manny Mcknight Open Carpal Tunnel release 04/03/16- RIGHT EGD - MAC (03/05/14) Colonoscopy - MAC 01/16/14-[facility] Family History Mother Alcohol abuse Father , 82? Diabetes Brother , 47 Alcohol abuse Lung cancer Maternal Grandfather , 80? No problems noted. Paternal Grandfather No problems noted. Maternal Grandmother , 78? Cancer Paternal Grandmother No problems noted. Son Substance abuse Daughter No problems noted. Social History Smoking/Tobacco Use Status: Former Tobacco Use tobacco type: cigarettes Quit Date: 07/26/77 Tobacco: How many years used: 15 Second Hand Exposure: Yes Smoking risk assessment performed?: Yes Alcohol Intake: former Drug use: Never Substance use type: does not use Counseling given: No Caregiver/Support person: No Household members: spouse Housing: house Communication Needs: Hard of Hearing Do you need help understanding health information?: Often current occupation: WORKING AT [employer]. Pets and animals: Yes Pets and animals: dog(s) Sexually active: No Do you think of yourself as: straight/heterosexual Current gender identity: male What is your relationship status?: How often do you talk on the phone with friends or family?: three or more times per week How often do you get together with friends or relatives?: twice per week How often do you attend taoist or orthodox services?: 1-3 times per year Do you belong to any clubs or organized social groups?: yes Panel score (0-1 are the most socially isolated patients): 3 Adelina/Tenriism: No preference Special adelina needs: No Seatbelt use: always Helmet use: Yes Helmet use: sometimes Drive intox or ride w/intox jitney driver: No Do you feel safe at home: Yes Do you feel safe in your relationship?: Yes Meds Allergies and Home Medications Allergies Allergy/AdvReac Type Severity Reaction Status Date / Time lisinopril AdvReac cough Verified 11/02/23 14:09 Home Medications Medication Instructions Recorded Confirmed Type blood-glucose meter #1 ea 07/24/14 11/02/23 History lancets 33 gauge (BD Ultra Fine ##400 10/25/17 11/02/23 Rx Lancets) acetaminophen 650 mg 2 tab PO BID PRN 11/02/17 11/02/23 History tablet,extended release turmeric root extract 500 mg 500 mg PO BID 12/13/18 11/02/23 History capsule magnesium oxide 500 mg capsule 500 mg PO DAILY #180 tabs 10/28/20 11/02/23 History ascorbic acid (vitamin C) 500 mg 500 mg PO DAILY 12/31/20 11/02/23 History tablet (Vitamin C) ferrous sulfate 325 mg (65 mg 325 mg PO .4 day per week 03/27/21 11/02/23 History iron) tablet nitroglycerin 0.4 mg sublingual 0.4 mg sublingual Q5M PRN 12/15/21 11/02/23 History tablet blood sugar diagnostic (Blood #400 strips 05/25/22 11/02/23 Rx Glucose Test strips) apixaban 5 mg tablet 5 mg PO BID #180 tabs 10/27/22 11/02/23 Rx clopidogrel 75 mg tablet 75 mg PO DAILY #90 tabs 10/27/22 11/02/23 Rx empagliflozin 10 mg tablet 10 mg PO DAILY #90 tabs 10/27/22 11/02/23 Rx metoprolol succinate 25 mg 25 mg PO DAILY #90 tabs 04/07/23 11/02/23 Rx tablet,extended release 24 hr torsemide 20 mg tablet 10 mg (1/2 x 20 mg) PO DAILY #45 07/27/23 11/02/23 Rx tabs atorvastatin 10 mg tablet 10 mg PO .COMPLEX #90 tab-caps 08/03/23 11/02/23 Rx insulin glargine 100 unit/mL (3 35 unit (0.35 mL) subcut DAILY #30 08/03/23 11/02/23 Rx mL) subcutaneous pen (Lantus mL Solostar U-100 Insulin) levothyroxine 175 mcg tablet 175 mcg PO DAILY #102 tab-caps 08/03/23 11/02/23 Rx sacubitril 24 mg-valsartan 26 mg 1 tab PO BID #180 tabs 08/03/23 11/02/23 Rx tablet (Entresto) insulin lispro 100 unit/mL 25 unit (0.25 mL) subcut AC #30 mL 08/10/23 11/02/23 Rx subcutaneous pen (Humalog KwikPen (U-100) Insulin) pen needle, diabetic 31 gauge x #400 ea 08/11/23 11/02/23 Rx 5/16 (BD Ultra-Fine Short Pen Needle) metformin 850 mg tablet 850 mg PO BID #180 tabs 09/06/23 11/02/23 Rx Exam Narrative Exam Narrative: Constitutional The patient is in stretcher comfortable but c/o of urge to void as the bob was clamped for renal US, cooperative during the interview. The patient is well groomed without acute distress and has average body habitus HENMT: Head is atraumatic, normocephalic, no lymphadenopathy. Facial structures with normal appearance Eyes: Well aligned, intact ROM Neck: Normal ROM, no meningeal signs Neuro:alert and oriented to self, person, place, time and situation. No neurological focal deficit Resp: Clear lung bilaterally Cardio: regular rhythm, S1, S2, no murmur, positive pulses to all 4 ext. GI: Abdomen is not distended, soft and tender to left lower quadrant, bowel sounds are present : Negative Costovertebral angle tenderness Back/spine/Pelvis: No back tenderness, normal alignment Integumentary: No skin lesions or rash Extremities: strength 5/5 to bilateral lower and upper extremities, right sided completed metatarsal amputation Psych: RASS 0, congruent mood and normal to anxious affect. Results Labs 11/02/23 09:50 11/02/23 13:16 Labs: Laboratory Results - last 24 hr 11/02/23 11/02/23 11/02/23 09:50 10:36 13:08 WBC 9.66 RBC 5.19 Hgb 15.8 Hct 47.5 MCV 92 MCH 30.4 MCHC 33.3 RDW 15.2 H Plt Count 220 MPV 9.1 Immature Gran % 0.7 Neutrophils % 79.5 Lymphocytes % 12.0 Monocytes % 6.2 Eosinophils % 1.3 Basophils % 0.3 Nucleated RBC % 0.0 Absolute Neutrophils 7.67 H Absolute Lymphocytes 1.16 L Absolute Monocytes 0.60 Absolute Eosinophils 0.13 Absolute Basophils 0.03 VBG pH 7.37 VBG pCO2 37 L VBG pO2 52 VBG HCO3 21 L VBG Total CO2 19 L VBG O2 Saturation 86 VBG Base Excess -4 L Sodium 140 Potassium 4.4 Chloride 101 Carbon Dioxide 20.8 L Anion Gap 18.2 H BUN 30 H Creatinine 1.9 H Est GFR (CKD-EPI 2020) 35.88 Glucose 335 H Calcium 8.9 Urine Color Red Urine Clarity Sl Cloudy Urine pH Ur Specific [place] 1.011 Urine Protein Color Interference Urine Ketones Color Interference Urine Blood Color Interference Urine Nitrite Color Interference Urine Bilirubin Color Interference Urine Urobilinogen Color Interference Ur Leukocyte Esterase Color Interference Urine RBC >50 H Urine WBC Not Applicable Ur Epithelial Cells Not Applicable Urine Crystals Not Applicable Urine Bacteria Not Applicable Urine Mucus Not Applicable Ur Culture Indicated? Yes Urine Glucose Color Interference Patient ABO/Rh O Positive Antibody Screen NEGATIVE 11/02/23 13:16 WBC RBC Hgb Hct MCV MCH MCHC RDW Plt Count MPV Immature Gran % Neutrophils % Lymphocytes % Monocytes % Eosinophils % Basophils % Nucleated RBC % Absolute Neutrophils Absolute Lymphocytes Absolute Monocytes Absolute Eosinophils Absolute Basophils VBG pH VBG pCO2 VBG pO2 VBG HCO3 VBG Total CO2 VBG O2 Saturation VBG Base Excess Sodium 138 Potassium 4.4 Chloride 102 Carbon Dioxide 22.4 Anion Gap 13.6 H BUN 34 H Creatinine 2.1 H Est GFR (CKD-EPI 2020) 31.82 Glucose 344 H Calcium 8.3 L Urine Color Urine Clarity Urine pH Ur Specific [place] Urine Protein Urine Ketones Urine Blood Urine Nitrite Urine Bilirubin Urine Urobilinogen Ur Leukocyte Esterase Urine RBC Urine WBC Ur Epithelial Cells Urine Crystals Urine Bacteria Urine Mucus Ur Culture Indicated? Urine Glucose Patient ABO/Rh Antibody Screen Last Vital Signs Temp 36.5 C 11/02/23 14:08 Pulse 92 H 11/02/23 14:08 Resp 30 H 11/02/23 14:08 BP 111/47 L 11/02/23 14:08 Pulse Ox 96 11/02/23 14:08 Time Spent Time spent with Patient: >75 minutes Time was spent: preparing to see the patient(eg.review tests), obtaining and/or reviewing separately otained hiistory, ordering medications,tests, procedures, referring, communicating with other health administrator health care facility, indepentently interpreting results, counseling the patient and care coordination
[2023-11-02 17:02] LABS: Influenza A PCR Negative (Negative); Influenza B PCR Negative (Negative); RSV PCR Negative (Negative)
[2023-11-02 17:06] LABS: COVID-19 PCR Positive (Negative); Source NASOPHARYNX
[2023-11-02] MEDS: Lactated Ringers 1,000 ML 75 ML IV (18:37)
[2023-11-02] MEDS: Insulin Aspart 300 UNITS/3 ML PEN SC (18:43)
[2023-11-02] MEDS: Apixaban 5 MG TAB PO (21:51)
[2023-11-02] MEDS: Sacubitril/Valsartan 24 mg/26 mg TAB 1 EACH PO (21:51)
[2023-11-02] MEDS: metFORMIN 850 MG TAB PO (21:52)
[2023-11-02] MEDS: Docusate Sodium 100 MG CAP PO (21:53)
[2023-11-02] MEDS: Normal Saline Flush 10 ML SYR IVP (21:57)
[2023-11-02] MEDS: Insulin Glargine 300 UNITS/3 ML PEN 35 UNITS SC (22:06)
[2023-11-03 00:48] VITALS: BP 130/71; PULSE 78; RESP 18; TEMP 36.3; O2SAT 93
[2023-11-03 03:21] VITALS: BP 152/73; PULSE 80; RESP 14; O2SAT 97
[2023-11-03 03:26] VITALS: TEMP 36.1
[2023-11-03 06:38] LABS: Abs Immature Grans 0.03 10^3/uL (0.0-0.06); Absolute Basophil Count 0.01 10^3/uL (0.0-0.2); Absolute Eosinophil Count 0.11 10^3/uL (0.0-0.7); Absolute Lymphocyte Count 0.72 10^3/uL (1.2-3.4); Absolute Monocyte Count 0.76 10^3/uL (0.1-0.8); Absolute Neutrophil Count 7.64 10^3/uL (1.2-6.7); Basophils % 0.1; Eosinophils % 1.2; HCT 41.3 % (40.0-50.0); HGB 13.4 g/dL (13.5-17.5); Immature Grans % 0.3; Lymphocytes % 7.8; MCHC 32.4 % (32.0-36.0); MCV 93 fL (80-95); MPV 8.7 fL (8.0-11.0); Monocytes % 8.2; Neutrophils % 82.4; Platelet Count 170 10^3/uL (130-400); RBC 4.46 10^6/uL (4.36-5.78); RDW 15.5 % (11.8-14.1); RDW-SD 52.9 fL; WBC 9.27 10^3/uL (4.4-10.8)
[2023-11-03] MEDS: Lactated Ringers 1,000 ML 75 ML IV (06:49)
[2023-11-03 06:53] LABS: INR 1.1 (0.9-1.1)
[2023-11-03 06:57] LABS: Anion Gap 9.1 mmol/L (3-11); BUN 29 mg/dL (7-18); CO2 26.9 mmol/L (21.0-32.0); CREATININE 1.5 mg/dL (0.70-1.30); Calcium 8.5 mg/dL (8.5-10.1); Chloride 107 mmol/L (98-107); Estimated GFR 47.65 (mL/min/1.73m2); Glucose 187 mg/dL (74-106); Potassium 4.5 mmol/L (3.5-5.1); Sodium 143 mmol/L (136-145)
[2023-11-03 07:57] VITALS: BP 124/68; PULSE 73; RESP 18; TEMP 36; O2SAT 96
[2023-11-03] MEDS: Normal Saline Flush 10 ML SYR IVP (07:59)
[2023-11-03] MEDS: Sacubitril/Valsartan 24 mg/26 mg TAB 1 EACH PO (08:00)
[2023-11-03] MEDS: metFORMIN 850 MG TAB PO (08:00)
[2023-11-03] MEDS: Apixaban 5 MG TAB PO (08:00)
[2023-11-03] MEDS: Empaglifozin 10 MG TAB PO (08:00)
[2023-11-03] MEDS: Levothyroxine 175 MCG TAB PO (08:00)
[2023-11-03] MEDS: Metoprolol CR 25 MG TABCR PO (08:00)
[2023-11-03] MEDS: Ascorbic Acid 500 MG TAB PO (08:00)
[2023-11-03] MEDS: Magnesium Oxide 400 MG TAB PO (08:01)
[2023-11-03] MEDS: Clopidogrel 75 MG TAB PO (08:01)
[2023-11-03] MEDS: Insulin Aspart 300 UNITS/3 ML PEN SC ×2 (08:04→11:40)
[2023-11-03] MEDS: Atorvastatin 10 MG TAB PO (08:21)
--- NOTE | 2023-11-03 11:11 | DSE_ITS ---
Date of service: 11/03/23 Time of Service: 14:52 DS: Diagnosis Discharge Diagnosis (1) COVID-19 determined by clinical diagnostic criteria: Status: Acute (2) RADHA (acute kidney injury): Status: Acute (3) Acute urinary retention: Status: Acute (4) Hematuria: Status: Acute (5) Chronic disease under co-management: Status: Acute (6) Paroxysmal A-fib: Status: Acute (7) Diabetes: Status: Chronic Discharge Plan Disposition Patient Disposition: Home Condition: Improving Discharge Details Reason For Visit: Hematuria, Urinary Retention Admit Date/Time: 11/02/23 14:59 Admit Provider: Devonte Aguilar Attending Provider: Devonte Aguilar Primary Care Provider: Lovely Vicente [facility] Course Hospital Course: This 78 years old male patient with a past medical history of coronary artery disease, known ST elevation myocardial infarction in 2017, obstructive sleep apnea on CPAP at home, paroxysmal atrial fibrillation on apixaban, insulin-dependent diabetes mellitus type 2, chronic kidney disease, remote right metatarsal amputation presented to the ED at [facility] via EMS on 11/02/2023 with complaints of suprapubic pain and inability to void for the past 24 hours. In the ED the patient presented with tachycardia and hypertension. Chest x-ray was negative for any acute findings. Labs in the ED were remarkable for creatinine of 1.9 with a baseline around 1.3. Dr. Lamb, urologist was consulted and a Bob catheter inserted with urine output with noticeable gross hematuria; recommendation made to leave the catheter in place with leg bag at discharge until the patient completes a previously made urology appointment scheduled in about 2 weeks. In the ED the patient received a liter of IV fluid bolus with a repeat creatinine of 2.1. Urine analysis was not conclusive due to the high blood content as culture was pending. The hospitalist was consulted and the patient was admitted to the [facility] floor for overnight observation. The patient was found to be COVID-positive starting Wednesday prior to the day of arrival to the emergency room, reporting having completed 4 out of 5 days of the antiviral; at this time no further treatment is indicated. Renal ultrasound without any acute abnormality was completed. Dr. Lamb also mentioned the possibility of coming off anticoagulation to manage and prevent a major episode but due to past medical history risks and benefits and the level of the patient's hemodynamic stability, apixaban was continued. During the stay the patient continued to receive slow IV hydration overnight. Bob catheter to remain patent and urine output adequate. Suprapubic and lower abdominal pain resolved. Urine cultures shows no positive results, no preliminary available with grossly hematuric sample. The patient has no white count, no dysuria, fever or chills,urine is dark yellow and not cloudy; will continue to follow. No growth in 24 hours as per culture results. The patient will be discharged home with an indwelling Bob catheter and a leg bag. The patient continued to receive his home medicine regimen for his chronic conditions. The patient will need to follow-up with his primary care provider within a week. The patient will have to complete blood work for CBC and BMP prior to visiting his primary care provider. The results will be forwarded to the primary care provider. Discussed with Dr. Aguilar [place] Meds and New Rx's Prescriptions: Continued ferrous sulfate 325 mg (65 mg iron) tablet 325 mg PO .4 day per week apixaban 5 mg tablet 5 mg PO BID Qty: 180 5RF empagliflozin 10 mg tablet 10 mg PO DAILY Qty: 90 5RF clopidogrel 75 mg tablet 75 mg PO DAILY Qty: 90 5RF atorvastatin 10 mg tablet 10 mg PO .COMPLEX Qty: 90 3RF Rx Instructions: 10 mg PO 5 days weekly; insulin glargine [Lantus Solostar U-100 Insulin] 100 unit/mL (3 mL) insulin pen 35 unit subcut DAILY Qty: 30 4RF levothyroxine 175 mcg tablet 175 mcg PO DAILY Qty: 102 5RF Rx Instructions: 1 tab daily except 2 tabs on Wed Entresto 24-26 mg tablet 1 tab PO BID Qty: 180 4RF turmeric root extract 500 mg capsule 500 mg PO BID (DME) blood-glucose meter 1 EACH misc 1 ea Miscellaneous PRN Qty: 1 Rx Instructions: For Accucheck Compact meter DIAGNOSIS CODE 250.01 (DME) lancets [BD Ultra Fine Lancets] 1 EACH misc 1 ea Sub-Q AC & HS Qty: 400 6RF Rx Instructions: Labile blood sugar E11.65 DISPENSE: lancets acetaminophen 650 MG tablet 2 tab PO BID PRN magnesium oxide 500 mg capsule 500 mg PO DAILY Qty: 180 ascorbic acid (vitamin C) [Vitamin C] 500 mg tablet 500 mg PO DAILY Patient Comments: 05/09/15- Takes during winter months. aj nitroglycerin 0.4 mg tablet, sublingual 0.4 mg sublingual Q5M PRN Rx Instructions: do not exceed 3 doses per episode (DME) Blood Glucose Test Strip 1 ea Miscellaneous AC & HS Qty: 400 12RF Rx Instructions: accu check arriva METER. PT USES INSULIN. Labile DM. TESTS TID AND PRN.DIAGNOSIS CODE E11.65/Z79.4 metoprolol succinate 25 mg tablet extended release 24 hr 25 mg PO DAILY Qty: 90 4RF torsemide 20 mg tablet 10 mg PO DAILY Qty: 45 4RF insulin lispro [Humalog KwikPen Insulin] 100 unit/mL insulin pen 25 unit subcut AC Qty: 30 4RF (DME) pen needle, diabetic [BD Ultra-Fine Short Pen Needle] 31 gauge x 5/16 needle See Rx Instructions .ROUTE .COMPLEX Qty: 400 3RF Dose Instruction: USE TO INJECTED INSULIN 4 TIMES DAILY Rx Instructions: USE TO INJECTED INSULIN 4 TIMES DAILY metformin 850 mg tablet 850 mg PO BID Qty: 180 4RF Discharge Instructions Instructions: Urinary Retention in Men (ED) Additional Instructions: You are seen in the emergency department for your bloody urine. Your blood work showed that you are not anemic. Please keep your catheter in place until you are seen later this month by urology. Please return to the emergency department if you develop abdominal pain, nausea or vomiting or if you have any other concerns. Stand Alone Forms: Nursing Discharge Form Referrals: Lovely Vicente MD, [place] [Primary Care Provider] - 11/18/23 1:20 pm () Activity:: Activity as Tolerated Equipment/Supplies:: leg bag, bob bag Diet:: heart healthy diabetic Discharge Orders Discharge Orders: Discharge Order (Routine); Ordered 11/03/23 Ordered By: Monica Arrington Other Ambulatory Orders: Basic Metabolic Panel (Routine) Timeframe: 20231108 Facility: [facility] - Location: Laboratory Outpatient - [facility] Ordered By: Monica Arrington Complete Blood Count w/Diff (Routine) Timeframe: 20231108 Facility: [facility] - Location: Laboratory Outpatient - [facility] Ordered By: Monica Arrington DS: Summary Time Spent with Patient providing and/or coordinating discharge services: Greater than 30 minutes Status at Discharge Functional status at discharge: independent ambulation Overall status at discharge: patient is back to baseline Mental Status: mental status grossly normal Speech and Movement: speech and movement normal Mood: congruent mood Affect: normal affect Quality:SDOH Health Related Social Needs: No Data to Display Exam Narrative Exam Narrative: Constitutional The patient is in chair comfortable. Neuro:alert and oriented X 4. No neurological focal deficit Resp: Clear lung bilaterally Cardio: S1, S2, positive pulses to all 4 ext. GI: Abdomen is not distended, soft and tender to left lower quadrant, bowel sounds are present : Negative costovertebral angle tenderness Back/spine/Pelvis: No back tenderness, normal alignment Integumentary: No skin lesions or rash Extremities:remote right sided completed metatarsal amputation intact Psych: RASS 0, congruent mood and normal to anxious affect. Psych Mental Status: mental status grossly normal Speech and Movement: speech and movement normal Mood: congruent mood Affect: normal affect DS: Data Vitals/I&O Vitals and I&O: Vital Signs Temperature 36 C L 11/03/23 07:57 Temperature Source Tympanic 11/03/23 07:57 Pulse 73 11/03/23 07:57 Pulse Rhythm Regular 11/03/23 08:08 Respiratory Rate 18 11/03/23 07:57 Respiratory Effort Normal 11/03/23 08:08 Respiratory Depth Normal 11/03/23 08:08 Respiratory Pattern Normal 11/03/23 08:08 Blood Pressure 124/68 11/03/23 07:57 Blood Pressure Mean 67 11/02/23 12:46 Blood Pressure Position Sitting 11/02/23 09:12 Pulse Oximetry 96 11/03/23 07:57 Respiratory End-tidal CO2 39 11/02/23 13:00 Oxygen Delivery Method Room Air 11/03/23 07:57 Oxygen Flow Rate 0 11/03/23 07:57 Pain Level 0 11/03/23 07:57 Intake & Output 11/02/23 11/02/23 11/03/23 11:59 23:59 11:59 Intake Total 350 / 350 915 / 915 Output Total 2450 / 2450 950 / 950 Balance -2099 / -2099 -35 / -35 Weight 86.183 kg 197.4 kg 88.4 kg Intake: IV 915 / 915 Oral 350 / 350 Output: Urine 2450 / 2450 950 / 950 Other: Urine Color Dark Red Dark Red Urine Appearance Hematuria Clear Comment patient has gross hematuria vital stable as of now no tachycardia. not as dark of bloody urine. Stool Size Large Stool Characteristics Soft Data Completed and Pending Labs on day of discharge: Labs from last 24 hours 11/03/23 11/02/23 11/02/23 06:25 16:06 13:16 WBC 9.27 RBC 4.46 Hgb 13.4 L D Hct 41.3 MCV 93 MCH 30.0 MCHC 32.4 RDW 15.5 H Plt Count 170 MPV 8.7 Immature Gran % 0.3 Neutrophils % 82.4 Lymphocytes % 7.8 Monocytes % 8.2 Eosinophils % 1.2 Basophils % 0.1 Nucleated RBC % 0.0 Absolute Neutrophils 7.64 H Absolute Lymphocytes 0.72 L Absolute Monocytes 0.76 Absolute Eosinophils 0.11 Absolute Basophils 0.01 PT 11.0 INR 1.1 Sodium 143 138 Potassium 4.5 4.4 Chloride 107 102 Carbon Dioxide 26.9 22.4 Anion Gap 9.1 13.6 H BUN 29 H 34 H Creatinine 1.5 H 2.1 H Est GFR (CKD-EPI 2020) 47.65 31.82 Glucose 187 H 344 H Calcium 8.5 8.3 L Urine Color Urine Clarity Urine pH Ur Specific Dillon Urine Protein Urine Ketones Urine Blood Urine Nitrite Urine Bilirubin Urine Urobilinogen Ur Leukocyte Esterase Urine RBC Urine WBC Ur Epithelial Cells Urine Crystals Urine Bacteria Urine Mucus Ur Culture Indicated? Urine Glucose COVID-19 Source NASOPHARYNX SARS-CoV-2 (PCR) Positive A Influenza Type A (PCR) Negative Influenza Type B (PCR) Negative RSV (PCR) Negative Patient ABO/Rh Antibody Screen 11/02/23 11/02/23 13:08 09:50 WBC RBC Hgb Hct MCV MCH MCHC RDW Plt Count MPV Immature Gran % Neutrophils % Lymphocytes % Monocytes % Eosinophils % Basophils % Nucleated RBC % Absolute Neutrophils Absolute Lymphocytes Absolute Monocytes Absolute Eosinophils Absolute Basophils PT INR Sodium Potassium Chloride Carbon Dioxide Anion Gap BUN Creatinine Est GFR (CKD-EPI 2020) Glucose Calcium Urine Color Red Urine Clarity Sl Cloudy Urine pH Ur Specific Dillon 1.011 Urine Protein Color Interference Urine Ketones Color Interference Urine Blood Color Interference Urine Nitrite Color Interference Urine Bilirubin Color Interference Urine Urobilinogen Color Interference Ur Leukocyte Esterase Color Interference Urine RBC >50 H Urine WBC Not Applicable Ur Epithelial Cells Not Applicable Urine Crystals Not Applicable Urine Bacteria Not Applicable Urine Mucus Not Applicable Ur Culture Indicated? Yes Urine Glucose Color Interference COVID-19 Source SARS-CoV-2 (PCR) Influenza Type A (PCR) Influenza Type B (PCR) RSV (PCR) Patient ABO/Rh O Positive Antibody Screen NEGATIVE 11/02/23 13:08 Urine - Reflex from Ua Urine Culture - Pending Preliminary micro results at discharge 11/02/23 13:08 Urine Culture - Pending Urine - Reflex from Ua [facility] All Active Problems (Updated 11/03/23 @ 10:54 by Eitan Villegas MD) No-show for appointment (Acute) Contraindication to deep vein thrombosis (DVT) prophylaxis (Acute) Discharge planning issues (Acute) COVID-19 determined by clinical diagnostic criteria (Acute) Chronic disease under co-management (Acute) Paroxysmal A-fib (Acute) RADHA (acute kidney injury) (Acute) Acute urinary retention (Acute) Traumatic tear of right rotator cuff (Acute ~05/15/23) Vertigo (Acute) Pre-syncope (Acute) Hematuria (Acute) Weakness (Acute) Low iron (Acute) Presence of external hearing aid (Acute) CAD (coronary artery disease) (Chronic) Pre-op testing (Acute) Respiratory failure with hypoxia (Acute) Diabetes (Chronic) Hypothyroidism (Chronic) Acute non-ST elevation myocardial infarction (NSTEMI) (Acute) CHF exacerbation (Acute) Renal function impairment (Chronic) Impacted cerumen, bilateral (Acute) Diarrhea (Acute) Dizziness (Acute) Primary osteoarthritis, left hand (Acute) Conductive hearing loss, external ear (Acute) Diarrhea (Acute) Restless legs (Acute 03/13/13) Afib (Chronic) Chronic anticoagulation (Acute) Urinary retention (Chronic 06/28/14) Type 2 diabetes mellitus with hyperglycemia (Chronic 12/24/15) Tubular adenoma of colon (Chronic 07/03/14) 01/06 Sleep apnea (Chronic) study 02/06/14-severe obstructive sleep apnea; CPAP Sensorineural hearing loss, bilateral (Chronic 11/28/12) Dr Vega; B/L hearing aids Psoriasis (Chronic 03/13/13) 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) [facility] Hypothyroidism associated with surgical procedure (Chronic 04/10/14) 03/2013 [facility] thyroidectomy: papillary carcinoma Peripheral neuropathy (Chronic 01/03/15) Nontoxic multinodular goiter (Chronic 09/12/12) Malignant melanoma of skin (Chronic 09/12/12) [facility] DERMATOLOGY; HAS F/U IN SEPTEMBER 2012 & annually MELANOMA TO BACK Left carpal tunnel syndrome (Chronic 06/30/17) Ischemic cardiomyopathy (Chronic 07/05/17) 07/05/17 LVEF=29% Hypomagnesemia (Chronic 04/18/13) Clinically manifested with leg cramps; initiated Mg++ Oxide 03/2013 Heartburn (Chronic 03/13/13) PPI prn Nisson fundiplication 06/08 Essential hypertension (Chronic 11/07/12) Diabetic neuropathy (Chronic 06/28/14) Depression (Chronic) 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 Taylor letter GE junction; pending path results BPH NOS w/o ur obs/LUTS (Chronic) ASHD (arteriosclerotic heart disease) (Chronic 07/05/17) 07/05/17-[facility] 3VCAD; Medical History (Updated 11/03/23 @ 10:54 by Eitan Villegas MD) Pain at injection site Cerumen debris on tympanic membrane of right ear Papillary thyroid carcinoma (03/30/13) UTI (urinary tract infection) Obesity Functional disorder of stomach 09/12/12 Restless legs 03/03/13 requip Papillary thyroid carcinoma 03/30/1302/2013 s/p thyroidectomy with Vernon Mcknight [facility] Dr. Delcid cancer f/u [facility] Night cramps 04/11/13 Carpal tunnel syndrome on both sides 01/22/15 STEMI (ST elevation myocardial infarction) 07/05/17 Deep vein thrombosis (DVT) of tibial vein of right lower extremity 08/03/17 unspecified chronicity partial occlusion 07/29/17 Confusion 08/03/17 Ischemic leg 09/02/17 Malignant melanoma of skin, unspecified in situ; neg. sentinel node History of tobacco use Quit 1970s Bruising (03/07/18) on coumadin Anemia (07/23/14) Hypertension GERD (gastroesophageal reflux disease) Hyperlipemia Diabetes mellitus MARIA VICTORIA (obstructive sleep apnea) BPH (benign prostatic hyperplasia) Surgical History S/P thyroidectomy 07/26/12 [facility] Dr. Mcknight H/O esophagogastroduodenoscopy 07/26/13 S/P trigger finger release 04/03/16 trigger little finger of right hand S/P carpal tunnel release 04/03/16 right Trigger Finger release 04/03/16; RIGHT SMALL FINGER Thyroidectomy, 2012 [facility] Dr. Manny Mcknight Open Carpal Tunnel release 04/03/16- RIGHT EGD - MAC (03/05/14) Colonoscopy - MAC 01/16/14-[facility] Family History Mother Alcohol abuse Father , 82? Diabetes Brother , 47 Alcohol abuse Lung cancer Maternal Grandfather , 80? No problems noted. Paternal Grandfather No problems noted. Maternal Grandmother , 78? Cancer Paternal Grandmother No problems noted. Son Substance abuse Daughter No problems noted. Social History Smoking/Tobacco Use Status: Former Tobacco Use tobacco type: cigarettes Quit Date: 07/26/77 Tobacco: How many years used: 15 Second Hand Exposure: Yes Smoking risk assessment performed?: Yes Alcohol Intake: former Drug use: Never Substance use type: does not use Counseling given: No Caregiver/Support person: No Household members: spouse Housing: house Communication Needs: Hard of Hearing Do you need help understanding health information?: Often current occupation: WORKING AT [employer]. Pets and animals: Yes Pets and animals: dog(s) Sexually active: No Do you think of yourself as: straight/heterosexual Current gender identity: male What is your relationship status?: How often do you talk on the phone with friends or family?: three or more times per week How often do you get together with friends or relatives?: twice per week How often do you attend holiness or evangelical services?: 1-3 times per year Do you belong to any clubs or organized social groups?: yes Panel score (0-1 are the most socially isolated patients): 3 Adelina/Rastafari: No preference Special adelina needs: No Seatbelt use: always Helmet use: Yes Helmet use: sometimes Drive intox or ride w/intox customer service driver: No Do you feel safe at home: Yes Do you feel safe in your relationship?: Yes Time Spent with Patient Time Spent with Patient: >85 minutes Time was spent: preparing to see the patient(eg.review tests), obtaining and/or reviewing separately otained hiistory, ordering medications,tests, procedures, referring, communicating with other health nanny caregiver, indepentently interpreting results, counseling the patient and care coordination
== END 2023-11-03 15:21 | disposition home or self-care (01) ==
LOC: ER 16:46 → MS 17:05
PROVIDERS: Nurse Practitioner Acute Care; Admitting Provider Internal Medicine; Emergency Provider Emergency Medicine; PCP Family Medicine; Visit Provider Internal Medicine
DX: N17.9 Acute kidney failure, unspecified (principal); R31.0 Gross hematuria; R33.9 Retention of urine, unspecified; E11.65 Type 2 diabetes mellitus with hyperglycemia; I25.10 Atherosclerotic heart disease of native coronary artery without angina pectoris; I48.0 Paroxysmal atrial fibrillation; Z79.01 Long term (current) use of anticoagulants; E11.22 Type 2 diabetes mellitus with diabetic chronic kidney disease; R53.1 Weakness; G25.81 Restless legs syndrome; G47.33 Obstructive sleep apnea (adult) (pediatric); H90.3 Sensorineural hearing loss, bilateral; L40.8 Other psoriasis; E83.42 Hypomagnesemia; I25.5 Ischemic cardiomyopathy; E11.42 Type 2 diabetes mellitus with diabetic polyneuropathy; F32.A Depression, unspecified; I25.2 Old myocardial infarction; Z86.711 Personal history of pulmonary embolism; E78.5 Hyperlipidemia, unspecified; E89.0 Postprocedural hypothyroidism; U07.1 COVID-19; Z79.4 Long term (current) use of insulin; N18.9 Chronic kidney disease, unspecified; R00.0 Tachycardia, unspecified; I12.9 Hypertensive chronic kidney disease with stage 1 through stage 4 chronic kidney disease, or unspecified chronic kidney disease
CPT/HCPCS: 52001; 00123; 36415; 76770; 80048; 82805; 86850; 86900; 86901; 87637; 93005; 96372; 96374; 96375; 96376; 99285; 71045; 81003; 81015; 85025; 85610; 87086; 93010; 99223; 99239; G0378; J1170; J1815; J2405; J3010

== ENCOUNTER 2023-11-06 11:27 | Emergency (ER) | payer MEDICARE, BC, SELFPAY ==
[2023-11-06 11:33] VITALS: BP 135/59; PULSE 80; RESP 16; TEMP 36.4; O2SAT 97
== END 2023-11-06 13:48 | disposition left against medical advice (07) ==
PROVIDERS: PCP Family Medicine
DX: Z53.21 Procedure and treatment not carried out due to patient leaving prior to being seen by health care provider (principal)

== ENCOUNTER 2023-11-08 05:53 | Outpatient (CLI) | payer MEDICARE, BC, SELFPAY ==
[2023-11-08 14:05] LABS: Abs Immature Grans 0.04 10^3/uL (0.0-0.06); Absolute Basophil Count 0.06 10^3/uL (0.0-0.2); Absolute Eosinophil Count 0.15 10^3/uL (0.0-0.7); Absolute Lymphocyte Count 0.96 10^3/uL (1.2-3.4); Absolute Monocyte Count 0.68 10^3/uL (0.1-0.8); Absolute Neutrophil Count 6.09 10^3/uL (1.2-6.7); Basophils % 0.8; Eosinophils % 1.9; HCT 41.5 % (40.0-50.0); HGB 13.9 g/dL (13.5-17.5); Immature Grans % 0.5; MCH 30.1 pg (27.0-33.0); MCHC 33.5 % (32.0-36.0); MCV 90 fL (80-95); Monocytes % 8.5; Neutrophils % 76.3; Platelet Count 248 10^3/uL (130-400); RBC 4.62 10^6/uL (4.36-5.78); RDW 15.2 % (11.8-14.1); RDW-SD 49.7 fL; WBC 7.98 10^3/uL (4.4-10.8)
[2023-11-08 14:39] LABS: Anion Gap 10.8 mmol/L (3-11); BUN 25 mg/dL (7-18); CO2 26.2 mmol/L (21.0-32.0); CREATININE 1.6 mg/dL (0.70-1.30); Calcium 9.2 mg/dL (8.5-10.1); Chloride 102 mmol/L (98-107); Glucose 201 mg/dL (74-106); Potassium 3.8 mmol/L (3.5-5.1); Sodium 139 mmol/L (136-145)
== END 2023-11-08 05:54 | disposition home or self-care (01) ==
LOC: LBO 05:54
PROVIDERS: Nurse Practitioner Acute Care; PCP Family Medicine; Visit Provider Family Medicine
DX: N17.9 Acute kidney failure, unspecified (principal); R31.9 Hematuria, unspecified
CPT/HCPCS: 36415; 80048; 85025

== ENCOUNTER 2023-12-14 05:21 | Outpatient (CLI) | payer MEDICARE, BC, SELFPAY ==
[2023-12-14 12:38] LABS: Calculated LDL 46 mg/dL (<100); Cholesterol 113 mg/dL (<200); HDL Cholesterol 37 mg/dL (40-60); TSH (W/Ref FT4) 0.07 uIU/mL (0.36-3.74); Triglyceride 152 mg/dL (<150)
[2023-12-14 12:53] LABS: COMMENT (LAB VIEW ONLY) 19.12 mg/dL; Microalb ug/mg Crea 91.5 ug/mg Cr
[2023-12-14 13:01] LABS: FREE T4 1.48 ng/dL (0.76-1.46)
== END 2023-12-14 05:22 | disposition home or self-care (01) ==
LOC: LOS 05:21
PROVIDERS: PCP Family Medicine; Visit Provider Family Medicine
DX: E03.9 Hypothyroidism, unspecified (principal); I10 Essential (primary) hypertension; E11.9 Type 2 diabetes mellitus without complications
CPT/HCPCS: 36415; 80061; 82043; 82570; 84439; 84443

== ENCOUNTER 2024-03-08 12:14 | Outpatient (REF) | payer MEDICARE, BC, SELFPAY | END 2024-03-08 12:15 | disposition home or self-care (01) | LOC: LBN 12:14 | PROVIDERS: PCP Family Medicine | DX: N40.0 Benign prostatic hyperplasia without lower urinary tract symptoms (principal) | CPT/HCPCS: 87077; 87086; 87186 ==

== ENCOUNTER 2024-06-12 03:06 | Outpatient (CLI) | payer MEDICARE, BC, SELFPAY ==
[2024-06-12 10:13] LABS: HCT 45.7 % (40.0-50.0); HGB 15.1 g/dL (13.5-17.5); MCH 30.6 pg (27.0-33.0); MCV 93 fL (80-95); MPV 9.3 fL (8.0-11.0); Platelet Count 183 10^3/uL (130-400); RBC 4.94 10^6/uL (4.36-5.78); RDW 15.3 % (11.8-14.1); RDW-SD 51.9 fL; WBC 6.36 10^3/uL (4.4-10.8)
[2024-06-12 10:34] LABS: Hemoglobin A1C 7.5 % (<5.7)
[2024-06-12 10:51] LABS: Iron 80 ug/dL (65-175)
[2024-06-12 11:08] LABS: ALT 46 U/L (16-63); AST 31 U/L (15-37); Alkaline Phosphatase 99 U/L (46-116); Anion Gap 7.5 mmol/L (3-11); BUN 26 mg/dL (7-18); Bilirubin, Total 0.81 mg/dL (0.2-1.0); CO2 32.5 mmol/L (21.0-32.0); CREATININE 1.5 mg/dL (0.70-1.30); Calcium 9.5 mg/dL (8.5-10.1); Calculated LDL 42 mg/dL (<100); Chloride 102 mmol/L (98-107); Cholesterol 159 mg/dL (<200); Estimated GFR 47.36 (mL/min/1.73m2); Ferritin 96 ng/mL (26-388); Glucose 168 mg/dL (74-106); HDL Cholesterol 38 mg/dL (40-60); Potassium 4.6 mmol/L (3.5-5.1); Sodium 142 mmol/L (136-145); TSH (W/Ref FT4) 0.87 uIU/mL (0.36-3.74); Total Protein 7.9 g/dL (6.4-8.2); Triglyceride 397 mg/dL (<150); Vitamin B12 279 pg/mL (193-986); Vitamin D 25 Total 18.7 ng/mL (30-100)
== END 2024-06-12 03:07 | disposition home or self-care (01) ==
PROVIDERS: PCP Family Medicine; Visit Provider Family Medicine
DX: R41.89 Other symptoms and signs involving cognitive functions and awareness (principal); R46.89 Other symptoms and signs involving appearance and behavior; I25.5 Ischemic cardiomyopathy; I48.19 Other persistent atrial fibrillation; E89.0 Postprocedural hypothyroidism; E61.1 Iron deficiency; Z79.01 Long term (current) use of anticoagulants; I10 Essential (primary) hypertension; E11.9 Type 2 diabetes mellitus without complications
CPT/HCPCS: 36415; 80053; 80061; 82306; 85027; 82607; 82728; 83036; 83540; 84443

== ENCOUNTER 2024-10-03 03:04 | Outpatient (CLI) | payer MEDICARE, BC, SELFPAY ==
[2024-10-03 12:28] LABS: Hemoglobin A1C 6.7 % (<5.7)
[2024-10-03 12:32] LABS: ALT 30 U/L (16-63); AST 26 U/L (15-37); Albumin 3.7 g/dL (3.4-5.0); Alkaline Phosphatase 86 U/L (46-116); Anion Gap 6.1 mmol/L (3-11); BUN 23 mg/dL (7-18); Bilirubin, Total 0.7 mg/dL (0.2-1.0); CO2 31.9 mmol/L (21.0-32.0); CREATININE 1.3 mg/dL (0.70-1.30); Calcium 9.4 mg/dL (8.5-10.1); Chloride 107 mmol/L (98-107); Estimated GFR 56.23 (mL/min/1.73m2); Glucose 147 mg/dL (74-106); Potassium 4.6 mmol/L (3.5-5.1); Sodium 145 mmol/L (136-145); Total Protein 7.5 g/dL (6.4-8.2)
[2024-10-03 13:01] LABS: COMMENT (LAB VIEW ONLY) 102.54 mg/dL
== END 2024-10-03 03:05 | disposition home or self-care (01) ==
PROVIDERS: PCP Family Medicine; Visit Provider Family Medicine
DX: E11.9 Type 2 diabetes mellitus without complications (principal); I10 Essential (primary) hypertension
CPT/HCPCS: 36415; 80053; 82043; 82570; 83036

== ENCOUNTER 2024-11-28 00:18 | Outpatient (CLI) | payer MEDICARE, BC, SELFPAY ==
--- NOTE | 2024-11-28 14:30 | DI.RAD_ITS ---
Exam(s) XR SHOULDER RT COMPLETE 2+V EXAM: XR SHOULDER RT COMPLETE 2+V CLINICAL HISTORY: Right shoulder pain, M25.511. TECHNIQUE: 2D digital imaging was performed. Five views. COMPARISON: CR XR SHOULDER RT COMPLETE 2+V from 05/17/2023 FINDINGS: BONES: No acute fracture is present. No bony destructive lesion is seen. Spurring at the undersurfac e of the acromion. JOINTS: No dislocation present. There is mild narrowing of the glenohumeral joint space. There is m ild spurring at the glenoid and margin of the humeral head. No significant spurring at the AC joint. SOFT TISSUE: Calcification superior to the humeral head may indicate calcific tendinosis. Surgical c lips in the axilla. IMPRESSION: [id number] degenerative changes of the glenohumeral joint. Calcific tendinosis. DATA REPOSITORY: RADIATION DOSE DELIVERED:
== END 2024-11-28 00:38 ==
LOC: DI 00:18
PROVIDERS: PCP Family Medicine; Visit Provider Family Medicine
DX: M25.511 Pain in right shoulder (principal)
CPT/HCPCS: 73030

== ENCOUNTER 2025-04-20 09:22 | Outpatient (CLI) | payer MEDICARE, BC, SELFPAY ==
[2025-04-20 10:19] LABS: Anion Gap 8.1 mmol/L (3-11); BUN 22 mg/dL (7-18); CO2 29.9 mmol/L (21.0-32.0); Calcium 8.8 mg/dL (8.5-10.1); Chloride 104 mmol/L (98-107); Estimated GFR 55.88 (mL/min/1.73m2); Glucose 210 mg/dL (74-106); Potassium 4.5 mmol/L (3.5-5.1); Sodium 142 mmol/L (136-145)
== END 2025-04-20 09:23 | disposition home or self-care (01) ==
LOC: LBO 09:22
PROVIDERS: PCP Family Medicine; Visit Provider Hospitalist
DX: I50.22 Chronic systolic (congestive) heart failure (principal)
CPT/HCPCS: 36415; 80048

== ENCOUNTER 2025-05-04 03:04 | Outpatient (CLI) | payer MEDICARE, BC, SELFPAY ==
[2025-05-04 07:33] LABS: HCT 45.0 % (40.0-50.0); HGB 14.6 g/dL (13.5-17.5); MCH 30.4 pg (27.0-33.0); MCHC 32.4 % (32.0-36.0); MCV 94 fL (80-95); MPV 9.5 fL (8.0-11.0); Platelet Count 168 10^3/uL (130-400); RBC 4.81 10^6/uL (4.36-5.78); RDW 14.8 % (11.8-14.1); RDW-SD 51.1 fL; WBC 6.03 10^3/uL (4.4-10.8)
[2025-05-04 07:58] LABS: Hemoglobin A1C 6.7 % (<5.7)
[2025-05-04 08:05] LABS: COMMENT (LAB VIEW ONLY) 17.80 mg/dL; Microalb ug/mg Crea 76.4 ug/mg Cr
[2025-05-04 08:37] LABS: ALT 35 U/L (16-63); AST 30 U/L (15-37); Albumin 3.7 g/dL (3.4-5.0); Alkaline Phosphatase 86 U/L (46-116); Anion Gap 8.3 mmol/L (3-11); BUN 33 mg/dL (7-18); Bilirubin, Total 0.7 mg/dL (0.2-1.0); CO2 29.7 mmol/L (21.0-32.0); Calcium 8.8 mg/dL (8.5-10.1); Calculated LDL 60 mg/dL (<100); Chloride 103 mmol/L (98-107); Cholesterol 136 mg/dL (<200); Estimated GFR 51.13 (mL/min/1.73m2); Glucose 283 mg/dL (74-106); HDL Cholesterol 32 mg/dL (>or=40); Potassium 4.2 mmol/L (3.5-5.1); Sodium 141 mmol/L (136-145); Total Protein 7.3 g/dL (6.4-8.2); Triglyceride 224 mg/dL (<150); Vitamin B12 1663 pg/mL (193-986); Vitamin D 25 Total 54 ng/mL (30-100)
== END 2025-05-04 03:05 | disposition home or self-care (01) ==
LOC: LBO 03:04
PROVIDERS: PCP Family Medicine; Visit Provider Family Medicine
DX: E11.9 Type 2 diabetes mellitus without complications (principal); E55.9 Vitamin D deficiency, unspecified; E53.8 Deficiency of other specified B group vitamins; Z79.01 Long term (current) use of anticoagulants; I10 Essential (primary) hypertension
CPT/HCPCS: 36415; 80053; 80061; 82306; 85027; 82043; 82570; 82607; 83036

== ENCOUNTER 2025-05-15 00:08 | Outpatient (CLI) | payer MEDICARE, BC, SELFPAY ==
[2025-05-15 07:36] LABS: Anion Gap 5.1 mmol/L (3-11); BUN 23 mg/dL (7-18); CO2 31.9 mmol/L (21.0-32.0); Calcium 8.9 mg/dL (8.5-10.1); Chloride 104 mmol/L (98-107); Estimated GFR 51.13 (mL/min/1.73m2); Glucose 187 mg/dL (74-106); Potassium 5.2 mmol/L (3.5-5.1); Sodium 141 mmol/L (136-145)
== END 2025-05-15 00:09 | disposition home or self-care (01) ==
LOC: LBO 00:08
PROVIDERS: PCP Family Medicine; Visit Provider Physician Assistant
DX: I50.22 Chronic systolic (congestive) heart failure (principal)
CPT/HCPCS: 36415; 80048